=== PATIENT | male | born 1960 | race Caucasian/White ===

== ENCOUNTER 2022-04-04 07:30 | Outpatient (RCR) | payer BC, SELFPAY | END 2022-09-25 09:48 | disposition home or self-care (01) | PROVIDERS: Visit Provider Physician Assistant Surgical | DX: R26.9 Unspecified abnormalities of gait and mobility (principal); M79.605 Pain in left leg; Z51.89 Encounter for other specified aftercare | CPT/HCPCS: 97110; 97162 ==

== ENCOUNTER 2022-07-22 09:59 | Outpatient (CLI) | payer BC, SELFPAY | END 2022-07-22 10:00 | disposition home or self-care (01) | PROVIDERS: PCP Physician Assistant Surgical; Visit Provider Nurse Practitioner Family | DX: L89.894 Pressure ulcer of other site, stage 4 (principal); R26.9 Unspecified abnormalities of gait and mobility; E11.622 Type 2 diabetes mellitus with other skin ulcer | CPT/HCPCS: 11043; 99213 ==

== ENCOUNTER 2022-07-29 10:03 | Outpatient (CLI) | payer BC, SELFPAY ==
--- OUTSIDE RECORDS SUMMARY | 2022-07-29 10:42 | XMS_ITS | Encounter Summary ---
:1960 Author Organization [facility] Address [address] [place] [address] Care Team Providers Name Role Phone Elsewhere, Pcp Primary Care Provider Unavailable Reason for Visit Reason Comments Knee Injury Encounter Details Date Type Department Care Team Description 2022 Nurse Triage Department of [facility] Lesli Anguiano, Knee Injury Medicine in [facility] [address] [place] [address] Social History Tobacco Use Types Packs/Day Years Used Date Smoking Tobacco: Never Smokeless Tobacco: Never Alcohol Use Standard Drinks/Week Comments No 0 (1 standard drink = 0.6 oz pure alcoho l) Sex Assigned at Date Recorded Not on file documented as of this encounter Miscellaneous Notes Telephone Encounter - Lesli Anguiano, R.N. - 2022 4:50 PM CDT Chief Complaint / Reason for Call Patient is a 62 y.o. male calling regarding Knee Injury. Assessment Concern: Patient calling regarding L knee injury that occurred 1 day ago. Reports tripped, heard snap, unable to bear weight, rates pain 10 million. Patient stated fired [employer], unable to get ride toED as does not get along with neighbors. Declined calling 911. Patient asked me to recommend drinking 2L Reji Rm, that'll take away the pain. I highly recommended the patient did not do that andasked me why. I responded with I will never recommend drinking alcohol to cope with pain or any other issues. He stated that is not a good enough reason and ended call. Calling to request: advice The recommended disposition is Go to ED Now. Reason for Disposition Can't stand (bear weight) or walk Protocols used: Knee Ulnwrz-FCMLY-GR Care Advice Patient/Caregiver understands and will follow care advice?: Yes, able to teach back GO TO ED NOW: * You need to be seen in the Emergency Department. * Go to the ED at nearest Hospital. * Leave now. Drive carefully. NOTE TO TRIAGER - DRIVING: * Another adult should drive. * If there are any problems with automobile transport (e.g., unable to get to the car), then ambulance transport may be necessary. * The patient, caregiver, or family members can arrange ambulance transport via private ambulance company or via EMS 911. documented in this encounter Plan of Treatment Not on filedocumented as of this encounter Visit Diagnoses Not on filedocumented in this encounter Additional Health Concerns Assessment Noted Time PHQ-9 Depression Total Score: 18 02/14/2013 9:53 AM CD T documented as of this encounter Care Teams Rocket Engine Tester Relationship Specialty Start Date End Date Elsewhere, Pcp PCP - General Internal Medicine 06/21/22 documented as of this encounter
--- OUTSIDE RECORDS SUMMARY | 2022-07-29 10:42 | XMS_ITS | Encounter Summary ---
:1960 Author Organization [facility] Address [address] [place] [address] Care Team Providers Name Role Phone Cintia Cobb M.D. Primary Care Provider [phone] Reason for Visit Reason Comments Quality D5 Encounter Details Date Type Department Care Team Description 12/06/2021 Clinical Communication Department of [facility], [facility] D5 Medicine, Jose Daniel Piper M.D. [address] [address] [place], [place] [phone] (Work) [phone] Social History Tobacco Use Types Packs/Day Years Used Date Smoking Tobacco: Never Smokeless Tobacco: Never Alcohol Use Standard Drinks/Week Comments No 0 (1 standard drink = 0.6 oz pure alcoho l) Sex Assigned at Date Recorded Not on file documented as of this encounter Miscellaneous Notes Telephone Encounter - Preethi Wagner RAugustine - 12/06/2021 2:41 PM CDT In reviewing the patient's diabetic quality metrics, I have found that the patient is not meeting all of their goals. BP control not met. Patient being seen routinely in physical therapy. Orders are not entered. documented in this encounter Plan of Treatment Not on filedocumented as of this encounter Visit Diagnoses Not on filedocumented in this encounter Additional Health Concerns Assessment Noted Time PHQ-9 Depression Total Score: 18 02/14/2013 9:53 AM CD T documented as of this encounter Care Teams Bag Bailer Relationship Specialty Start Date End Date Cintia Cobb M.D. PCP - General 02/19/17 02/20/[address] [place] [phone] documented as of this encounter
--- OUTSIDE RECORDS SUMMARY | 2022-07-29 10:42 | XMS_ITS | Clinical Summary ---
:1960 Author Organization [facility] Address [address] [place] [address] Care Team Providers Name Role Phone Elsewhere, Pcp Primary Care Provider Unavailable Source Comments Patient records contain information from all sites at [facility]. For routine questions regarding patient records, call [phone] during business hours, M-F 8:00 AM - 5:00 PM Central Time. Record requests for emergency care only can be directed to [phone] at any time.[facility] Allergies Active Allergy Reactions Severity Noted Date Comments Ciprofloxacin Other (see comments), High 12/28/2009 Genit al swelling Swelling Haemophilus Influenzae GI intolerance 11/03/2016 Priyanka rrhea Influenza A (H5n1) Virus Diarrhea High 08/13/2021 Vaccine Monoval (18 Yr +) Medications Medication Sig Dispensed Refills Start Date End Date Status PEDIATRIC Take 4 tablets 0 11/12/2015 Acti ve MULTIVITAMIN NO.76 by mouth daily. (FLINTSTONES COMPLETE ORAL) calcium carbonate Chew 2 tablets 2 0 Active (TUMS) 500 mg (200 mg (two) times a calcium) chewable day. tablet loperamide (IMODIUM Take 2 mg by 0 Active A-D) 2 mg capsule mouth 4 (four) times a day as needed for diarrhea. acetaminophen Take 2 tablets 0 08/16/2019 Active (TYLENOL) 500 mg (1,000 mg total) tablet by mouth 3 (three) times a day as needed for pain. Do not exceed 4 g total per day from all sources next 2 weeks, and no more than 4 g per day total long-term blood sugar 1 test once a 100 each 11 11/08/2019 Act adin diagnostic (glucose week. Dx: E11.9, blood) strips brand per insurance preference lancets 1 each daily. 100 each 11 11/09/2019 Activ e Dx: E11.9. Brand per insurance coverage. blood-glucose meter 1 each daily. 1 1 each 0 11/09/2019 Active misc each daily. Dx: E11.9. Brand per insurance coverage. traZODone (DESYREL) Take 1-2 tablets 60 tablet 11 07/14/2021 Active 50 mg tablet (50-100 mg total) by mouth at bedtime as needed for sleep. finasteride (PROSCAR) Take 1 tablet (5 90 tablet 3 08/13/2021 08/13/2022 Active 5 mg tablet mg total) by mouth daily. allopurinoL Take 1 tablet 90 tablet 3 08/13/2021 Act adin (ZYLOPRIM) 300 mg (300 mg total) tablet by mouth daily. furosemide (LASIX) 40 TAKE ONE TABLET 90 tablet 3 09/20/2021 Active mg tablet BY MOUTH DAILY tamsulosin (FLOMAX) TAKE TWO 180 capsule 3 11/20/2021 Active 0.4 mg 24 hr capsule CAPSULES BY MOUTH (0.8MG) DAILY methocarbamoL 500 mg. 0 11/27/2021 Activ e (ROBAXIN) 500 mg tablet omeprazole (PriLOSEC) TAKE ONE CAPSULE 90 capsule 3 12/18/[address] capsule BY MOUTH ONCE DAILY BEFORE BREAKFAST cyclobenzaprine Take 10 mg by 0 12/23/2021 Active (FLEXERIL) 10 mg mouth 3 (three) tablet times a day as needed. ferrous sulfate 325 Take 1 tablet 90 tablet 3 01/01/2022 Active mg (65 mg iron) DR (65 mg of iron tablet total) by mouth daily. 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 Wart Genital 11/05/2015 Overview: onset unknown Flutter Atrial 11/22/2014 Tinea Pedis 02/02/2014 Overview: onset unknown Eczema 01/25/2014 Overview: onset unknown Hyperlipidemia On Treatment 02/08/2013 Intertrigo 07/14/2012 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 Benign Prostatic Hyperplasia Without Obstruction 02/15 Overview: onset unknown Hypertension Essential Primary 12/28/2009 Overview: Hypertension essential, NOS 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 Overview: onset unknown Follow Up Examination Postoperative Visit Pain Shoulder Right Resolved Problems Problem Noted Date Resolved Date Diabetes Mellitus Type 2 Ulcer Foot 11/08/201912/06 Pressure Injury (Ulcer) Of Left Heel Stage 2 10/18/2019 12/19/2020 Diarrhea 08/13/2019 12/19/2020 Fracture Hip Intertrochanteric Closed Initial Left 9 12/19/2020 Overview: Added automatically from request for emiliano rossi [id number] Fracture Hip Closed Initial Left 08/12/2019 021 Hemorrhage Gastrointestinal 04/12/2018 12/19/2020 Wound Toe Without Damage To Nail Open Subsequent 01/08/2018 12/19/2020 Morbid Obesity Body Mass Index Greater Than Or Equal To 40 0 12/13/2014 11/25/2017 Adult Diabetes Mellitus Type 2 07/14/2013 08/14/2019 Encounters Date Type Specialty Care Team Description 2022 Nurse Triage Community Internal Soni Benjamin M edical Information Medicine R.N. 2022 Nurse Triage Family Medicine Lesli Anguiano, Knee Injury R.N. 06/21/2022 Emergency Emergency Medicine Billy [facility] (Primary Dx) from Last 3 Months Immunizations Name Administration Dates Next Due DT, Pediatric 12/05/2002 Influenza, Seasonal, Injectable 07/13/2008, 08/09/2007, 07/10 PPSV23 12/05/2002 Tdap 02/19/2012 Family History Medical History Relation Name Comments Heart failure Father Hypertension Father Diabetes Mother Heart attack Mother Kidney disease Mother Relation Name Status Comments Father Mother Social History Tobacco Use Types Packs/Day Years Used Date Smoking Tobacco: Never Smokeless Tobacco: Never Tobacco Cessation: Counseling Given: No Alcohol Use Standard Drinks/Week Comments No 0 (1 standard drink = 0.6 oz pure alcoho l) Sex Assigned at Date Recorded Not on file Last Filed Vital Signs Vital Sign Reading Time Taken Comments Blood Pressure 136/73 06/21/2022 9:22 AM CDT Pulse 67 06/21/2022 10:15 AM CDT Temperature 36.9 ??C (98.4 ??F) 06/21/2022 9:22 AM CDT Respiratory Rate 18 06/21/2022 11:00 AM CDT Oxygen Saturation 99% 06/21/2022 10:15 AM CDT Inhaled Oxygen Concentration - - Weight 81 kg (178 lb 9.2 oz) 09/30/2021 8:25 AM CROSS TIE TRAM LOADER Height 180.3 cm (5' 11) 06/21/2022 9:24 AM CDT Body Mass Index 24.22 08/12/2019 12:43 PM CROSS TIE TRAM LOADER Plan of Treatment Health Maintenance Due Date Last Done Comments CT Colonography 1960 Cologuard 1960 Colonoscopy 1960 HIV Screening 1960 Hepatitis C Screening 1960 COVID-19 Vaccine (#1) 1960 Pneumococcal vaccine (0-64 years) 12/06/2003 12/05/2002 (2 - PCV) Zoster Vaccines (1 of 2) 2008 Colorectal Cancer Screening 2014 FIT 2014 2013 Diabetic Office Visit with Foot 10/19/2014 10/19/2013 Exam Urine Albumin 10/03/2015 10/03/2014, 07/11/2013, 11/18/2012, Additional history exists Dilated Eye Exam 11/20/2017 11/20/2016 (Performed elsewhere), 10/11/2015 Hepatitis B Vaccines (1 of 3 - 2018 Risk 3-dose series) Depression Screening (Annual 09/07/2021 PHQ-2) DTaP,Tdap,and Td Vaccines (3 - Td 02/18/2022 02/19/2012, or Tdap) Influenza Vaccine (#1) 2022 07/13/2008, 07/13/2008, 08/09/2007, Additional history exists Hemoglobin A1C 07/02/2022 12/31/2021, 12/18/2020, 08/12/2019, Additional history exists Creatinine Level 09/30/2022 09/30/2021, 12/18/2020, 08/12/2019, Additional history exists Potassium Level 09/30/2022 09/30/2021, 12/18/2020, 08/12/2019, Additional history exists Sodium Level 09/30/2022 09/30/2021, 12/18/2020, 08/12/2019, Additional history exists Office Visit for Blood Pressure 12/31/2022 12/31/2021 Check / Re-check Lipid (Cholesterol) Screening 06/03/2023 06/03/2022, 2021, 12/18/2020, Additional history exists Medical Devices Implanted Type Area Biofuels Engineering Manager Device Shelf Model / Identifier Expiration Serial / Date Lot Lead 4076-52 Capsurefix Novus - Patel [id number] Cardiac Lead Heart Me dtronic / Implanted: Qty: 1 on 01/19/2017 [id number] / Description: Device Biofuels Engineering Manager - [employer] Body Location - Other. Right Atrial. Device Status Text - CARD LEAD-1 [id number]. Clip Device Hemostatic 235 - [id number] Hardware e.g. N/A: Success [id number] 01/12/2021 [id number] / Implanted: Qty: 1 on 04/13/2018 by Rene Skinner M.D. at [facility] pins/screws/rods [employer] / [id number] Description: Resolution clip Scrw Lck Mariano Ti T25 5x38 - [id number] Hardware e.g. Left: Hip Depuy Synthes [id number] / Implanted: Qty: 1 on 08/13/2019 by John Sebastian M.D. at [facility] pins/screws/rods / Pacemaker Cuhy Toribio L101 - Patel [id number] Pacemaker Other/Legacy - Caleb ton / Implanted: Qty: 1 on 01/19/2017 See Implant Scientific [id number] / Description Description: Device Biofuels Engineering Manager - [email or web address]. Body Location - Other. Left. Device Status Text - [id number]. Procedures Procedure Name Priority Date/Time Associated Comments Diagnosis DX KNEE LEFT 4+ RAD - Semiurgent 06/21/2022 9:22 Resul ts for this VIEWS (Fast; most ED AM CDT procedure are in patients; some the results inpatients) section. from Last 3 Months Results DX Knee Left 4+ Views (06/21/2022 9:22 AM CDT) Anatomical Region Laterality Modality Lower Extremity, Knee, Musculoskeletal RST LOS, Left Digital Radiography Musculoskeletal ARZ LOS, Muskuloskeletal FLA LOS Specimen (Source) Anatomical Collection Method Collection Time Re ceived Time Location / / Volume Laterality 06/21/2022 9:25 AM CDT Impressions 06/21/2022 9:28 AM CDT 1. Moderate left knee joint effusion. 2. No acute fracture or dislocation. 3. Diffuse bony demineralization. 4. Status post ORIF of previous distal l eft femoral metaphyseal fracture which appears healed with mild residual deformity. Narrative 06/21/2022 9:28 AM CDT EXAM: DX KNEE LEFT 4+ VIEWS COMPARISON: 09/30/2021 FINDINGS: Moderate left knee joint effus ion. Diffuse bony demineralization. No acute fracture or dislocation. Status post ORIF of previou sly seen comminuted displaced fracture of distal left femoral metaphysis with intramedullary r od, long compression plate and multiple screws bridging the fracture site. The fracture appears heal ed with significantly improved alignment and mild residual deformity. Arterial calcification. Procedure Note Yissel Conner M.D. - 06/21/2022Format ting of this note might be different from the original. EXAM: DX KNEE LEFT 4+ VIEWS COMPARISON: 09/30/2021 FINDINGS: Moderate left knee joint effus ion. Diffuse bony demineralization. No acute fracture or dislocation. Status post ORIF of previou sly seen comminuted displaced fracture of distal left femoral metaphysis with intramedullary r od, long compression plate and multiple screws bridging the fracture site. The fracture appears heal ed with significantly improved alignment and mild residual deformity. Arterial calcification. IMPRESSION: 1. Moderate left knee joint effusion. 2. No acute fracture or dislocation. 3. Diffuse bony demineralization. 4. Status post ORIF of previous distal l eft femoral metaphyseal fracture which appears healed with mild residual deformity. Billy Camacho P.A.-C. IMG DIAGNOSTIC IMAGING P ROCEDURES from Last 3 Months Insurance Payer Benefit Plan Subscriber ID Effective Phone Address Typ e / Group Dates BLUE CROSS BCBS BLUE [id number] 2018-Prese ATTN: Angélica contreras HMO BLUE SHIELD PLUS HMO nt CONSUMER [facility] [place] [address] [address] [place] [address] Advance Directives For more information, please contact: [phone] Documents on File Type Date Recorded Patient Secretary Book Keeper Explanati on Advance Directives 11/17/2016 12:00 AM [employer] doc ument. See document viewer. Advance Directives 09/19/2016 12:00 AM [employer] doc ument. See document viewer. Latest Code Status on File Code Status Date Activated Date Inactivated Comments DNR/DNI 08/13/2019 12:27 PM 08/16/2019 2:18 PM Code Status History Code Status Date Activated Date Inactivated Comments Full Code 08/13/2019 9:42 AM 08/13/2019 12:27 PM Question Answer Comments Full Code: Discussed DNR/DNI 08/12/2019 2:14 PM 08/13/2019 9:42 AM DNR/DNI 04/12/2018 4:16 PM 04/15/2018 9:11 PM Care Teams Cloth Measurer Machine Relationship Specialty Start Date End Date Elsewhere, Pcp PCP - General Internal Medicine 06/21/22
--- OUTSIDE RECORDS SUMMARY | 2022-07-29 10:42 | XMS_ITS | Encounter Summary ---
:1960 Author Organization [facility] Address [address] [place] [address] Care Team Providers Name Role Phone Cintia Cobb M.D. Primary Care Provider Encounter Details Date Type Department Care Team Description 01/01/2022 Clinical Communication Department of [facility], Jose Daniel Piper M.D. [address] [address] [place], [place] [phone] (Work) [phone] Social History Tobacco Use Types Packs/Day Years Used Date Smoking Tobacco: Never Smokeless Tobacco: Never Alcohol Use Standard Drinks/Week Comments No 0 (1 standard drink = 0.6 oz pure alcoho l) Sex Assigned at Date Recorded Not on file documented as of this encounter Miscellaneous Notes Telephone Encounter - Viviana Borja - 01/01/2022 3:05 PM CDT Thank you for your request, records will be sent by our processors. Release of information Telephone Encounter - Cintia Cobb M.D. - 01/01/2022 10:58 AM CDT Please fax recent preop physical exam and any other pertinent labs/imaging/cardiology evaluation: Due Date/Date of Appointment: 01/27/22 Location of Appointment/Surgery: [facility] Provider name or Department: Cesar Scherer MD, [facility] Address: [address] [place] [address] documented in this encounter Plan of Treatment Not on filedocumented as of this encounter Visit Diagnoses Not on filedocumented in this encounter Additional Health Concerns Assessment Noted Time PHQ-9 Depression Total Score: 18 02/14/2013 9:53 AM CD T documented as of this encounter Care Teams Cream Cheese Maker Relationship Specialty Start Date End Date Cintia Cobb M.D. PCP - General 02/19/17 02/20/[id number] [place] [phone] documented as of this encounter
--- OUTSIDE RECORDS SUMMARY | 2022-07-29 10:42 | XMS_ITS | Encounter Summary ---
:1960 Author Organization [facility] Address [address] [place] [address] Care Team Providers Name Role Phone Cintia Cobb M.D. Primary Care Provider [phone] Reason for Referral Outpatient (Routine) - Authorized Specialty Diagnoses / Procedures Referred By Contact Refer red To Contact Family Medicine Cintia Cobb SE, M.D. [address] [place] [phone] Referral ID Status Reason Start Date Expiration Date Visits V isits Requested Authorized [id number] Authorized 01/01/2022 01/01/2023 1 1 utpatient (Routine) - Authorized Specialty Diagnoses / Procedures Referred By Contact Fatuma almodovar To Contact Diagnoses Preoperative Exam Cintia Cobb SE Procedures ECG 12 Lead Keely Piper [address] [place] [phone] Referral ID Status Reason Start Date Expiration Date Visits V isits Requested Authorized [id number] Authorized 12/31/2021 12/31/2022 1 1 Reason for Visit Reason Comments Follow-up D5 Outpatient (Routine) - Closed Specialty Diagnoses / Procedures Referred By Contact Refer red To Contact Family Medicine [facility] DREW Piper M.D. [address] [place] [address] D[place] [phone] Referral ID Status Reason Start Date Expiration Date Visits Requ ested Visits Authorized [id number] Closed 08/13/2021 08/13/2022 1 1 Encounter Details Date Type Department Care Team Description 12/31/2021 Office Visit Department of Family Tigist Cobb reoperative Exam (Primary Dx); Medicine, Jose Daniel Piper M.D. 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; [facility], in [address] [place] [address] Diabetes Mellitus Type 2 With Diabetic Neuropathy (HCC); [facility] Gastric Bypass Status Post; [place] Jose Daniel Dean [place] Anemia Microcytic; [address] [place] [phone] Wound Lower Leg Open Initial Right; DREW CONDON [phone] Flutter Atr ial (HCC); [phone] (Work) Pacemaker Cardiac Status Post; [phone] Benign Pr ostatic Hyperplasia Without Obstruction; Screening [facility] Prostate Cancer Social History Tobacco Use Types Packs/Day Years Used Date Smoking Tobacco: Never Smokeless Tobacco: Never Alcohol Use Standard Drinks/Week Comments No 0 (1 standard drink = 0.6 oz pure alcoho l) Sex Assigned at Date Recorded Not on file documented as of this encounter Last Filed Vital Signs Vital Sign Reading Time Taken Comments Blood Pressure 139/80 12/31/2021 7:00 PM CDT Pulse 92 12/31/2021 6:32 PM CDT Temperature 37.3 ??C (99.1 ??F) 12/31/2021 6:32 PM CDT Respiratory Rate - - Oxygen Saturation 97% 12/31/2021 6:32 PM CDT Inhaled Oxygen Concentration - - Weight - - Height - - Body Mass Index - - documented in this encounter H&P Notes Cintia Cobb M.D. - 12/31/2021 6:00 PM CDT SUBJECTIVE CHIEF COMPLAINT / REASON FOR VISIT Ed Cuauhtemoc Luna is a 61 y.o. male who presents for evaluation of Follow-up (D5 ). HISTORY OF PRESENT ILLNESS Ed will be undergoing a spine surgery with [facility], Dr. Cesar Scherer at [facility] in [facility] on January 27. He has never had any trouble with anesthesia. No history of blood clots. Denies any current black or bloody stools. He has chronic iron deficiency anemia in the setting of a gastric bypass surgery. Hemoglobin is typically around eat. He did require a blood transfusion following an emergent ORIF to his left femur following a fracture earlier this year. He hasa history of atrial flutter with complete heart block and has a pacemaker in place. He reports chestpain since having this pacemaker implanted. He denies any shortness of breath. He reports his back pain has been progressing and it is hard to control his bladder at times. He had 1 day where it was hard to control his bowels. He has left leg pain with occasional numbness. The left leg wants to buckleon him. He has been seeing the wound care nurse at [facility] and states that this has been healingwell. He sees them weekly on Thursday and his does dressing changes Thursday and Thursday. Patient checks his blood sugars occasionally with numbers typically around 90. His diabetes has essentialy resolved since losing weight with his gastric bypass surgery. He denies any recent heartburn. Current Outpatient Medications Medication Sig ??? acetaminophen (TYLENOL) 500 mg tablet Take 2 tablets (1,000 mg total) by mouth 3 (three) times aday as needed for pain. Do not exceed 4 g total per day from all sources next 2 weeks, and no more than 4 g per day total long-term ??? allopurinoL (ZYLOPRIM) 300 mg tablet Take 1 tablet (300 mg total) by mouth daily. ??? blood sugar diagnostic (glucose blood) strips 1 test once a week. Dx: E11.9, brand per insurancepreference ??? blood-glucose meter misc 1 each daily. 1 each daily. Dx: E11.9. Brand per insurance coverage. ??? calcium carbonate (TUMS) 500 mg (200 mg calcium) chewable tablet Chew 2 tablets 2 (two) times a day. ??? cyclobenzaprine (FLEXERIL) 10 mg tablet Take 10 mg by mouth 3 (three) times a day as needed. ??? finasteride (PROSCAR) 5 mg tablet Take 1 tablet (5 mg total) by mouth daily. ??? furosemide (LASIX) 40 mg tablet TAKE ONE TABLET BY MOUTH DAILY ??? lancets 1 each daily. Dx: E11.9. Brand per insurance coverage. ??? loperamide (IMODIUM A-D) 2 mg capsule Take 2 mg by mouth 4 (four) times a day as needed for diarrhea. ??? methocarbamoL (ROBAXIN) 500 mg tablet 500 mg. ??? omeprazole (PriLOSEC) [address] capsule TAKE ONE CAPSULE BY MOUTH ONCE DAILY BEFORE BREAKFAST ??? PEDIATRIC MULTIVITAMIN NO.76 (FLINTSTONES COMPLETE ORAL) Take 4 tablets by mouth daily. ??? tamsulosin (FLOMAX) 0.4 mg 24 hr capsule TAKE TWO CAPSULES BY MOUTH (0.8MG) DAILY ??? traZODone (DESYREL) 50 mg tablet Take 1-2 tablets (50-100 mg total) by mouth at bedtime as needed for sleep. The patient's allergies, problem list and medical history portions of the patient's history were reviewed and updated as appropriate. REVIEW OF SYSTEMS Constitutional: Negative for fatigue, fever, weight gain of more than 10 pounds and weight loss of more than 10 pounds. Skin: Negative for change in mole or skin spot. Eyes: Negative for visual problems. ENT: Negative for difficulty hearing and sinus congestion. Respiratory: Negative for coughing up mucus (phlegm), dry cough, dyspnea, sleep disturbances due to breathing and wheezing. Cardiovascular: Positive for chest pain, pressure or tightness. Negative for rapid or fluttering heart beat. Gastrointestinal: Negative for abdominal (belly) pain or cramping, blood in stool, constipation, diarrhea, heartburn, nausea and vomiting. Genitourinary: Positive for incontinence. Negative for difficulty urinating, pain with urination andurgency. Musculoskeletal: Positive for arthralgias, back pain and pain or stiffness in the joints. Negative for joint swelling and muscle pain/stiffness. Neurological: Positive for numbness or shooting pain in hands, arms, legs, or feet, loss of balance or tendency to fall easily and weakness in arms or legs. Negative for headaches. Psychiatric/Behavioral: Negative for snores loudly, stop breathing, choking, or gasping while asleepand sleep disturbance. OBJECTIVE VITAL SIGNS Blood pressure 139/80, pulse 92, temperature 37.3 ??C, temperature source Temporal, SpO2 97 %. PHYSICAL EXAMINATION Constitutional General: He is not in acute distress. Appearance: He is well-developed. HENT Head: Normocephalic and atraumatic. Right Ear: Tympanic membrane, ear canal and external ear normal. Left Ear: Tympanic membrane, ear canal and external ear normal. Nose: Nose normal. Eyes Extraocular Movements: Extraocular movements intact. Conjunctiva/sclera: Conjunctivae normal. Pupils: Pupils are equal, round, and reactive to light. Neck Thyroid: No thyromegaly. Vascular: No carotid bruit. Cardiovascular Rate and Rhythm: Normal rate and regular rhythm. Heart sounds: Normal heart sounds. No murmur heard. No gallop. Pulmonary Effort: Pulmonary effort is normal. Breath sounds: Normal breath sounds. Abdominal General: Bowel sounds are normal. Palpations: Abdomen is soft. There is no mass. Tenderness: There is no abdominal tenderness. There is no guarding or rebound. Musculoskeletal Cervical back: Normal range of motion and neck supple. Right lower leg: No edema. Left lower leg: No edema. Comments: Right lower leg is wrapped with Felix bandages. Lymphadenopathy Cervical: No cervical adenopathy. Skin General: Skin is warm. Neurological General: No focal deficit present. Mental Status: He is alert and oriented to person, place, and time. Cranial Nerves: No cranial nerve deficit. Psychiatric Mood and Affect: Mood normal. 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 History of Heart disease: Atrial flutter and complete heart block s/p pacemaker placement 2016 History of Lung disease: None Stop Bang Score: Stop Bang Total Score: 2 Other risk factors: Chronic anemia with baseline hemoglobin ~8 s/p gastric bypass surgery 2014 Patient is very opinionated regarding his care and will readily refuse any tests, treatments or interventions that he does not think are necessary, to the point of becoming belligerent. He is having worrisome symptoms of urinary incontinence and progressive bowel troubles. He denies any saddle paresthesias. Discussed reasons to seek emergency care prior to his procedure on January 27. Preoperative instructions discussed and understanding indicated: 1. Follow all preop hospital/center instructions. 2. IF TAKING ASPIRIN/NSAIDs: Stop aspirin/NSAIDs 1 week before procedure and resume 1 day after the procedure unless instructed otherwise 3. IF TAKING ANY ANTICOAGULANTS: Stop other anticoagulants per instructions of hospital/center or, if no instructions provided, stop anticoagulants 5 days before procedure and resume 1 day after the procedure unless instructed otherwise 4. IF TAKING ORAL DIABETES MEDS: Hold on the day of the procedure and resume 1 day after the procedure unless instructed otherwise 5. IF TAKING FELIX INHIBITOR OR ARB (LISINOPRIL OR LOSARTAN): Hold FELIX inhibitor/ARB/diuretic on the day of the procedure and resume 1 day after the procedure unless instructed otherwise 6. IF TAKING INSULIN: Hold short acting insulin on the day of the procedure and resume once eating. Take half of normal basal insulin dose prior to surgery. #3 Diabetes Mellitus Type 2 With Diabetic Neuropathy (HCC) A1c is in the normal range at 5.4%. Patient does not take any diabetic meds. He does try to follow ahealthy diet. #4 Gastric Bypass Status Post #5 Anemia Microcytic Patient has persistent iron deficiency anemia and hemoglobin is in the range of his baseline which is 8. He did require a blood transfusion within the past few months following an emergency surgery. Iron infusions have been offered but patient declines. Postoperative hemoglobin will need to be closelymonitored. He will continue with his multivitamin and B12 injections and we will initiate an oral iron supplement. #6 Wound Lower Leg Open Initial Right Patient is working with the wound care clinic through [facility]. There has been significant improvement in his wound. Hopefully it will be healed by the time of surgery. They do state that there were some vascular abnormalities, potentially varicose veins, on ultrasound for which [facility] has [facility]. #7 Flutter Atrial (HCC) #8 Pacemaker Cardiac Status Post Pacemaker placed in 2017 which patient is still upset about. EKG shows a paced rhythm. Patient is not anticoagulated. #9 Benign Prostatic Hyperplasia Without Obstruction #10 Screening Examination Prostate Cancer Continue on Flomax and finasteride. PSA obtained and pending. Plan was discussed with patient and is in agreement with plan. All questions were answered, side effects of any/all new medications were discussed. Patient left in no acute distress. Cintia Copeland M.D. documented in this encounter Plan of Treatment Scheduled Orders Name Type Priority Associated Diagnoses Order S [facility] Basic Metabolic Panel Lab Routine Preoperative Exam E xpected: 12/31/2021, Expires: 2022 Hemoglobin A1c Lab Routine Diabetes Mellitus Type 2 E xpected: 07/03/2022 With Diabetic Neuropathy (Ap proximate), (HCC) Expires: 2022 Hemoglobin Lab Routine Anemia Microcytic Expected: 07/03/2022 (Approximate), Expires: 2022 Scheduled Referrals Name Type Priority Associated Diagnoses Order S [facility] Family Medicine Outpatient Referral Routine Expec ti: office visit 07/03/2022 (clinic) (Approximate), Expires: 04/02/2023 documented as of this encounter Procedures Procedure Name Priority Date/Time Associated Diagnosis Comme nts LIPID PANEL, S Routine 12/31/2021 7:28 PM Diabetes Mellitus Re sults for this CDT Type 2 With Diabetic procedu re are in Neuropathy (HCC) the results section. PROSTATE-SPECIFIC Routine 12/31/2021 7:28 PM Screening Examina tion Results for this AG (PSA) SCRN, S CDT Prostate Cancer procedur e are in the results section. HEMOGLOBIN A1C, B Routine 12/31/2021 7:28 PM Diabetes Mellitus Results for this CDT Type 2 With Diabetic procedu re are in Neuropathy (HCC) the results section. CBC WITHOUT Routine 12/31/2021 7:22 PM Anemia Microcytic Resu lts for this DIFFERENTIAL, B CDT procedure ar e in the results section. ECG Routine 12/31/2021 7:16 PM Preoperative Exam Resu lts for this CDT procedure are i n the results section. documented in this encounter Results Hemoglobin A1c (12/31/2021 7:28 PM CDT) athologist Signature Hemoglobin A1c, 5.4 4.2 - 5.6 12/31/2021 CNFL B % 7:48 PM CDT Specimen Anatomical Collection Method Collection Time Receive d Time (Source) Location / / Volume Laterality Blood (Blood, 12/31/2021 7:28 PM 01/01/20 7:32 Venous) CDT PM CDT Cintia Copeland M.D. LAB BLOOD ADD-ON Performing Organization Address City/State/[facility] Code Phon e Number [address] [address] [place] [address] System [address] Lipid Panel (12/31/2021 7:28 PM CDT) athologist Signature Cholesterol, 114 mg/dL 12/31/2021 CNFL Total 7:54 PM CDT Comment: ----REFERENCE VALUE---- Desirable: < 200 Borderline high: 200 - 239 High: > or = 240 Triglycerides 103 mg/dL 12/31/2021 7:54 PM CDT CNF L Comment: ----REFERENCE VALUE---- Normal: <150 Borderline high: 150-199 High: 200-499 Very high: > or =500 Cholesterol, HDL 51 >=40 mg/dL 12/31/2021 7:54 PM CDT CNFL Calculated LDL 42 mg/dL 12/31/2021 7:54 PM CDT CN FL Comment: ----REFERENCE VALUE---- Desirable: <100 mg/dL Above Desirable: 100-129 mg/dL Borderline High: 130-159 mg/dL High: 160-189 mg/dL Very High: >=190 mg/dL Cholesterol, Non-HDL, Calculated 63 mg/dL 022 7:54 PM CDT CNFL Comment: ----REFERENCE VALUE---- Desirable: <130 Above Desirable: 130-159 Borderline high: 160-189 High: 190-219 Very high: > or =220 Specimen Anatomical Collection Method Collection Time Receive d Time (Source) Location / / Volume Laterality Blood (Blood, 12/31/2021 7:28 PM 01/01/20 22 7:32 Venous) CDT PM CDT Cintia Copeland M.D. LAB BLOOD ADD-ON Performing Organization Address City/[facility]/ZIP Code Phon e Number [facility]- [address] [place] [address] [place] [address] [place] [address] System in [place] [address] [address] PSA (Prostate-Specific Antigen) Screen (12/31/2021 7:28 PM CDT) athologist Signature Prostate-Specif 0.92 <=4.5 ng/mL 01/01/2022 RDW ic Ag 1:39 PM CDT Comment: ----ADDITIONAL INFORMATION---- The testing method is an electrochemilum inescence assay manufactured by [email or web address] and performed on the Modular or Arslan system . Values obtained with different assay met hods or kits may be different and cannot be used inte rchangeably. Test results cannot be interpreted as ab solute evidence for the presence or absence of malignant disease. Specimen Anatomical Collection Method Collection Time Receive d Time (Source) Location / / Volume Laterality Blood (Blood, 12/31/2021 7:28 PM 01/02/20 22 Venous) CDT 12:50 PM CDT Cintia Copeland M.D. LAB BLOOD ADD-ON Performing Organization Address City/State/ZIP Code Phon e Number [facility]- [address] [place], [place] [address] [facility] [place] [address] System in [place] [address] (ABNORMAL) CBC without Differential (12/31/2021 7:22 PM CDT) Patholo gist Method Time Signature Hemoglobin 7.6 (L) 13.2 - 12/31/2021 CNFL 16.6 g/dL 8:48 PM CDT Hematocrit 26.5 (L) 38.3 - 12/31/2021 CNFL 48.6 % 8:48 PM CDT Erythrocytes 3.34 (L) 4.35 - 12/31/2021 CNFL 5.65 8:48 PM CDT x10(12)/L MCV 79.3 78.2 - 12/31/2021 CNFL 97.9 fL 8:48 PM CDT RBC Distrib Width 16.9 (H) 11.8 - 12/31/2021 CNFL 14.5 % 8:48 PM CDT Platelet Count 228 135 - 317 12/31/2021 CNFL x10(9)/L 8:48 PM CDT Leukocytes 5.6 3.4 - 9.6 12/31/2021 CNFL x10(9)/L 8:48 PM CDT Specimen Anatomical Collection Method Collection Time Receive d Time (Source) Location / / Volume Laterality Blood (Blood, 12/31/2021 7:22 PM 01/01/20 22 8:22 Venous) CDT PM CDT Cintia Copeland M.D. LAB BLOOD ADD-ON Performing Organization Address City/State/ZIP Code Phon e Number [address] [address] [place] [address] System [address] ECG 12 Lead (12/31/2021 7:16 PM CDT) P athologist Signature Ventricular Rate 81 BPM MUSE ECG/Min IA Interval 172 ms MUSE QRSD Interval 172 ms MUSE QT Interval 400 ms MUSE QTC Interval 465 ms MUSE P [place] 37 degrees MUSE R [place] 269 degrees MUSE T Wave [place] 83 degrees MUSE Specimen Anatomical Collection Method Collection Time Receive d Time (Source) Location / / Volume Laterality 12/31/2021 7:16 PM 7:19 CDT PM CDT Impressions MUSE - 12/31/2021 7:19 PM CDT Dual chamber electronic pacemaker Sinus rhythm When compared with ECG of 30-SEP-2021 10 :45, No significant change was found Reviewed by KARINA Levy Narrative This result has an attachment that is no t available. Procedure Note Kaiser Skaggs Jr., M.D. - 12/31/2021For matting of this note might be different from the original. IMPRESSION: Dual chamber electronic pacemaker Sinus rhythm When compared with ECG of 30-SEP-2021 10 :45, No significant change was found Reviewed by KARINA Levy Cintia Copeland M.D. ECG ORDERABLES Performing Organization Address City/State/ZIP Code Phon e Number MUSE MUSE NA documented in this encounter Visit Diagnoses Diagnosis Preoperative Exam - Primary 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 Diabetes Mellitus Type 2 With Diabetic N europathy (HCC) Gastric Bypass Status Post Anemia Microcytic Wound Lower Leg Open Initial Right Flutter Atrial (HCC) Pacemaker Cardiac Status Post Benign Prostatic Hyperplasia Without Obs truction Screening Examination Prostate Cancer documented in this encounter Additional Health Concerns Assessment Noted Time PHQ-9 Depression Total Score: 18 02/14/2013 9:53 AM CD T documented as of this encounter Care Teams Scientist Propagator Relationship Specialty Start Date End Date Cintia Cobb M.D. PCP - General 02/19/17 02/20/[address] [place] [phone] documented as of this encounter
--- OUTSIDE RECORDS SUMMARY | 2022-07-29 10:42 | XMS_ITS | Encounter Summary ---
:1960 Author Organization [facility] Address [address] [place] [address] Care Team Providers Name Role Phone Elsewhere, Pcp Primary Care Provider Unavailable Reason for Visit Reason Comments Medical Information Encounter Details Date Type Department Care Team Description 2022 Nurse Triage Division of [facility] Soni [facility] Internal Medicine, Angélica, R.NPili [facility] in [address] [place], [place] [address] [place] [phone] [place] [address] Social History Tobacco Use Types Packs/Day Years Used Date Smoking Tobacco: Never Smokeless Tobacco: Never Alcohol Use Standard Drinks/Week Comments No 0 (1 standard drink = 0.6 oz pure alcoho l) Sex Assigned at Date Recorded Not on file documented as of this encounter Miscellaneous Notes Telephone Encounter - Soni Benjamin R.N. - 2022 4:59 PM CDT Patient calls and states I fired [place] but was taken by ambulance to [place] and need to know if I need to ice this Patient was uncooperative and would not provide spelling of first and last name to triage nurse. Advised that triage would have to disconnect if patient could not cooperate and provide information. Patient yelled his first and last name at triage nurse. Explained that triage would needto disconnect. documented in this encounter Plan of Treatment Not on filedocumented as of this encounter Visit Diagnoses Not on filedocumented in this encounter Additional Health Concerns Assessment Noted Time PHQ-9 Depression Total Score: 18 02/14/2013 9:53 AM CD T documented as of this encounter Care Teams Margin Analyst Relationship Specialty Start Date End Date Elsewhere, Pcp PCP - General Internal Medicine 06/21/22 documented as of this encounter
--- OUTSIDE RECORDS SUMMARY | 2022-07-29 10:42 | XMS_ITS | Encounter Summary ---
:1960 Author Organization [facility] Address [address] [place] [address] Care Team Providers Name Role Phone Elsewhere, Pcp Primary Care Provider Unavailable Reason for Visit Reason Comments Fall Pt arrived via [facility] foll owing a fall at a farm site. Pt reported he landed on his knee. Encounter Details Date Type Department Care Team Description 06/21/2022 Emergency [facility] Billy Camacho ist[facility] F[facility] [place] Mary Carmen Munguia (Primary Dx) Emergency Department [id number] [place] [address] [place], [place] [phone] (Wo rk) [address] [phone] Social History Tobacco Use Types Packs/Day Years [...] Concentration - - Weight - - Height 180.3 cm (5' 11) 06/21/2022 9:24 AM CDT Body Mass Index - - documented in this encounter Discharge Instructions Discharge InstructionsBilly Camacho P.A.-C. - 06/21/2022 11:12 AM CDT You were seen in the Emergency Department for knee pain. If you have worsening symptoms you will need to return to the emergency room for further evaluation or to your primary care provider. Thank you for your patience today and we hope you feel better soon! documented in this encounter Medications at Time of Discharge Medication Sig Dispensed Refills Start Date End Date acetaminophen (TYLENOL) Take 2 tablets 0 08/16/20 19 500 mg tablet (1,000 mg total) by mouth 3 (three) times a day as needed for pain. Do not exceed 4 g total per day from all sources next 2 weeks, and no more than 4 g per day total long-term allopurinoL (ZYLOPRIM) Take 1 tablet (300 90 tablet 3 08/13 300 mg tablet mg total) by mouth daily. blood sugar diagnostic 1 test once a week. 100 each 11/2019 (glucose blood) strips Dx: E11.9, brand per insurance preference blood-glucose meter misc 1 each daily. 1 1 each 0 2019 each daily. Dx: E11.9. Brand per insurance coverage. calcium carbonate (TUMS) Chew 2 tablets 2 0 500 mg (200 mg calcium) (two) times a day. chewable tablet cyclobenzaprine Take 10 mg by mouth 0 12/23/2021 (FLEXERIL) 10 mg tablet 3 (three) times a day as needed. ferrous sulfate 325 mg Take 1 tablet (65 90 tablet 3 2021 (65 mg iron) DR tablet mg of iron total) by mouth daily. finasteride (PROSCAR) 5 Take 1 tablet (5 mg 90 tablet 3 03/202108/13/2022 mg tablet total) by mouth daily. furosemide (LASIX) 40 mg TAKE ONE TABLET BY 90 tablet 3 tablet MOUTH DAILY lancets 1 each daily. Dx: 100 each 11 11/09/2019 E11.9. Brand per insurance coverage. loperamide (IMODIUM A-D) Take 2 mg by mouth 0 2 mg capsule 4 (four) times a day as needed for diarrhea. methocarbamoL (ROBAXIN) 500 mg. 0 11/27/2021 500 mg tablet omeprazole (PriLOSEC) 20 TAKE ONE CAPSULE BY [address] capsule MOUTH ONCE DAILY BEFORE BREAKFAST PEDIATRIC MULTIVITAMIN Take 4 tablets by 0 2015 NO.76 (FLINTSTONES mouth daily. COMPLETE ORAL) tamsulosin (FLOMAX) 0.4 TAKE TWO CAPSULES 180 capsule 3 11/05 mg 24 hr capsule BY MOUTH (0.8MG) DAILY traZODone (DESYREL) 50 Take 1-2 tablets 60 tablet 11 021 mg tablet (50-100 mg total) by mouth at bedtime as needed for sleep. documented as of this encounter Progress Notes Lesli Go L.I.C.S.W. - 06/21/2022 11:25 AM CDT Progress Note - Care Coordination SUBJECTIVE Patient is a 61 year old man who presented to the [facility] emergency department earlier today after a reported fall at a local worksite. Picu Nurse was consulted by nursing staff to assist with providing a cab voucher to the patient. OBJECTIVE Past Medical History: Diagnosis Date Anemia Diabetes Mellitus NOS Allergies Allergen Reactions Ciprofloxacin Other (see comments) and Swelling Genital swelling Influenza A (H5n1) Virus Vaccine Monoval (18 Yr +) Diarrhea Haemophilus Influenzae GI intolerance Diarrhea ASSESSMENT / PLAN ASSESSMENT A formal assessment was not completed with the patient today. INTERVENTIONS Picu Nurse provided a cab voucher to the patient as requested and instructed him to call [facility] this service. Patient reported that his truck remains at [employer] in [place] and once he can get there he plans to return home. PLAN Patient discharged from the emergency department at this time with no further identified needs. Alexandre ValeraC.S.W. 06/21/22 documented in this encounter ED Notes Billy Camacho P.A.-C. - 06/21/2022 10:14 AM CDT SUBJECTIVE CHIEF COMPLAINT / REASON FOR VISIT: Fall (Pt arrived via [facility] following a fall at a farm site. Pt reported he landed on his knee.) HISTORY OF PRESENT ILLNESS Patient had a mechanical trip and fall landing on his left knee morning. He has had a nonspecified surgery to the left knee in the past. He has ongoing left knee pain. REVIEW OF SYSTEMS Constitutional: Negative for activity change, appetite change, chills, diaphoresis and fever. HENT: Negative for sore throat. Respiratory: Negative for cough, chest tightness and shortness of breath. Cardiovascular: Negative for chest pain and palpitations. Gastrointestinal: Negative for abdominal pain, blood in stool, constipation, diarrhea, nausea and vomiting. Endocrine: Negative for cold intolerance and heat intolerance. Genitourinary: Negative for inability to urinate and dysuria. Musculoskeletal: Positive for joint swelling and extremity pain. Negative for neck pain and neck stiffness. Neurological: Negative for headaches. Psychiatric/Behavioral: Negative for confusion. ALLERGIES / CONTRAINDICATIONS Reviewed in medical record. CURRENT MEDICATIONS Reviewed in medical record. MEDICAL HISTORY Past Medical History: Diagnosis Date ??? Anemia ??? Diabetes Mellitus NOS Patient Active Problem List Diagnosis Date Noted ??? Pain Shoulder Right ??? Follow Up Examination Postoperative Visit ??? Impaired Glucose Tolerance 08/14/2019 ??? Osteoporosis 08/14/2019 ??? Anemia Microcytic 08/13/2019 ??? Pain Joint 08/12/2019 ??? History Of Falling 04/21/2018 ??? Gastric Bypass Status Post 11/25/2017 ??? Diabetes Mellitus Type 2 With Diabetic Neuropathy (HCC) 07/01/2017 ??? Diabetes Mellitus Type 2 Peripheral Neuropathy (HCC) 07/01/2017 ??? 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 Pacemaker Cardiac Status Post 03/18/2017 ??? 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 Wart Genital 11/05/2015 ??? Flutter Atrial (HCC) 11/22/2014 ??? Tinea Pedis 02/02/2014 ??? Eczema 01/25/2014 ??? Hyperlipidemia On Treatment 02/08/2013 ??? Intertrigo 07/14/2012 ??? 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 Benign Prostatic Hyperplasia Without Obstruction 02/15/2010 ??? Hypertension Essential Primary 12/28/2009 ??? 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 BYPASS OF STOMACH N/A 11/19/2014 Gastric bypass ??? CARDIAC PACEMAKER PLACEMENT ??? CHONDRECTOMY OF SPINE N/A 02/19/1989 Discectomy ??? CYSTOSCOPY kidney stone ??? ESOPHAGOGASTRODUODENOSCOPY N/A 04/13/2018 Procedure: ESOPHAGOGASTRODUODENOSCOPY; Surgeon: Rene Carlson M.D.; Location: [facility] GI LAB ??? LAPAROSCOPIC ASSISTED - GASTRIC BYPASS N/A 11/21/2014 Laparoscopic assisted - Gastric bypass ??? OPEN REDUCTION INTERNAL FIXATION FEMUR Left 08/13/2019 Procedure: OPEN REDUCTION INTERNAL FIXATION LEFT FEMUR; Surgeon: John Norman M.D.; Location:[facility] OR ??? OTHER CONVERTED SHX (SEE COMMENT) N/A 01/19/2017 >Implantation of dual-chamber permanent pacemaker. ??? OTHER SURGICAL HISTORY cystoscopy ??? UPPER GASTROINTESTINAL ENDOSCOPY N/A 11/21/2014 Upper gastrointestinal endoscopy FAMILY HISTORY Reviewed in chart. SOCIAL HISTORY Social History Tobacco Use ??? Smoking status: Never ??? Smokeless tobacco: Never Substance Use Topics ??? Alcohol use: No Social History Substance and Sexual Activity Drug Use No OBJECTIVE INITIAL VITAL SIGNS: Initial Vitals [06/21/22 0922] Temperature Pulse Rate Heart Rate Resp Blood Pressure SpO2 36.9 ??C 62 -- -- 136/73 98 % Pain Score -- PHYSICAL EXAMINATION Constitutional: Nursing note and vitals reviewed. He appears not lethargic. HENT: Head: Atraumatic. No signs of injury. Mouth/Throat: Mucous membranes are moist. Eyes: EOM are normal. Pupils are equal, round, and reactive to light. Neck: Neck supple. Cardiovascular: Regular rhythm, S1 normal, S2 normal and normal heart sounds. Exam reveals no gallopand no friction rub. No murmur heard.Edema: no edema noted Pulmonary/Chest: Effort normal. There is normal air entry. No stridor. No tachypnea. No respiratory distress. He has no wheezes. He has no rhonchi. He has no rales. He exhibits no retraction. Abdominal: Soft. exhibits no distension and no mass. There is no abdominal tenderness. There is no rebound and no guarding. Musculoskeletal: General: No edema. Cervical back: Normal range of motion and neck supple. Comments: Mild swelling of the left knee without significant ecchymosis certainly no laceration. Neurological: Alert and oriented to person, place, and time. He is not disoriented. He exhibits normal muscle tone. Skin: Skin is warm and dry. He is not diaphoretic. Psychiatric: He has a normal mood and affect. Behavior is normal. Thought content normal. ED COURSE: Final Diagnoses: as of 06/21/22 1112 History Of Falling INTERVENTIONS: Medications - No data to display DIAGNOSTICS LABS: Labs Reviewed - No data to display ECG: RADIOLOGY: DX Knee Left 4+ Views Final Result 1. Moderate left knee joint effusion. 2. No acute fracture or dislocation. 3. Diffuse bony demineralization. 4. Status post ORIF of previous distal left femoral metaphyseal fracture which appears healed with mild residual deformity. ASSESSMENT / PLAN IMPRESSION AND PLAN Patient was seen in the emergency department after an accident and evaluated for injuries. Their evaluation did not show any evidence of acute fractures or dislocations, just a increased effusion left knee. I emphasized the importance of follow up with their primary care doctor as needed if they have continued pain, and that after an injury they may have worsening pain and stiffness over the next fewdays. They may try heating pads or ice for comfort as well as over the counter pain medications suchas ibuprofen or acetaminophen. They understand that if the pain changes, worsens or is not adequately controlled, they should return to the emergency department for additional workup. They may also have other injuries that were not evident at the time of the accident, and if they notice an injury thatwas not evaluated, they should follow up. I discussed the patient the use of ice and rest as well asnonsteroidal anti-inflammatories. He is taking Tylenol ibuprofen morning evening I have recommended he take mid day dose which he insists is possible due to his work schedule. I will leave that up to him.The patient's workup and evaluation during their Emergency Department stay was reviewed with the patient. He is comfortable going home based on our discussion with him. The signs/symptoms to prompt return to the Emergency Department were discussed with the patient and they expressed understanding. All questions were answered. DIAGNOSIS: Final diagnoses: None ED DISCHARGE MEDS: ED Prescriptions None Sage Camacho, Billy Foster P.A.-C. 06/21/22 1016 documented in this encounter Plan of Treatment Not on filedocumented as of this encounter Procedures Procedure Name Priority Date/Time Associated Comments Diagnosis DX KNEE LEFT 4+ RAD - Semiurgent 06/21/2022 9:22 Resul ts for this VIEWS (Fast; most ED AM CDT procedure are in patients; some the results inpatients) section. documented in this encounter Results DX Knee Left 4+ Views (06/21/2022 [...] Camacho P.A.-C. IMG DIAGNOSTIC IMAGING P ROCEDURES documented in this encounter Visit Diagnoses Diagnosis History Of Falling - Primary documented in this encounter Administered Medications Inactive Administered Medications - up to 3 most recent administrations Medication Order MAR Action Action Date Dose Rate Site ketorolac injection 15 mg Given 06/21/2022 11:22 AM CDT 15 mg Other (TORADOL) 15 mg, intramuscular, Once, On 06/21/22 at 1031, For 1 dose, Adult IV push rate: Over 15 seconds. Peds IV push rate: Over 1 minute. 60 mg dose only for IM, not recommended for IV. documented in this encounter Active and Recently Administered Medications Times are shown in CDT. Scheduled Medication Order 06/19/2022 06/20/2022 06/21/2022 ketorolac injection 15 mg (TORADOL) (COMPLETED) 1122 (Given - Provider: Emir Senior R.N.) 15 mg, intramuscular, Once, On Sat 06/21 at 1031, For 1 dose, Adult IV push rate: Over 15 seconds. Peds IV push rate: Over 1 minute. 60 mg dose only for IM, not recommended for IV. documented in this encounter Additional Health Concerns Assessment Noted Time PHQ-9 Depression Total Score: 18 02/14/2013 9:53 AM CD T documented as of this encounter Care Teams Business Analytics Intern Relationship Specialty Start Date End Date Elsewhere, Pcp PCP - General Internal Medicine 06/21/22 documented as of this encounter
--- OUTSIDE RECORDS SUMMARY | 2022-07-29 10:42 | XMS_ITS | Encounter Summary ---
:1960 Author Organization [facility] Address [address] [place] [address] Care Team Providers Name Role Phone Cintia Cobb M.D. Primary Care Provider [phone] Encounter Details Date Type Department Care Team Description 02/11/2022 Orders Only Department of [facility] Angélica Cobb Medicine, Jose Daniel [facility]per M.D[facility], [address] [address] [place], [place] [phone] (W ork) [address] [phone] Social History Tobacco Use Types Packs/Day Years Used Date Smoking Tobacco: Never Smokeless Tobacco: Never Alcohol Use Standard Drinks/Week Comments No 0 (1 standard drink = 0.6 oz pure alcoho l) Sex Assigned at Date Recorded Not on file documented as of this encounter Plan of Treatment Not on filedocumented as of this encounter Visit Diagnoses Not on filedocumented in this encounter Additional Health Concerns Assessment Noted Time PHQ-9 Depression Total Score: 18 02/14/2013 9:53 AM CD T documented as of this encounter Care Teams Tab Machine Operator Relationship Specialty Start Date End Date Cintia Cobb M.D. PCP - General 02/19/17 02/20/[address] [place] [phone] documented as of this encounter
--- OUTSIDE RECORDS SUMMARY | 2022-07-29 10:42 | XMS_ITS | Encounter Summary ---
:1960 Author Organization [facility] Address [address] [place] [address] Care Team Providers Name Role Phone Cintia Cobb M.D. Primary Care Provider [phone] Reason for Visit Physical Therapy (Routine) - Canceled Specialty Diagnoses / Procedures Referred By Contact Refer red To Contact Diagnoses Fracture Femur Lower Multiple Closed Initial Left (HCC) Nathen Burger M.D. [facility] Procedures PT Ongoing treatment [facility] [address] [address] Referral ID Status Reason Start Date Expiration Date Visits V isits Requested Authorized [id number] Canceled 10/22/2021 10/22/2022 40 40 Encounter Details Date Type Department Care Team Description 12/10/2021 Clinical Support Department of Gustavo Burger M.D. [address] [address] Fracture Femur Rehabilitation Lesli Dias, P.T. [address] [place] [phone] Lower Multiple Services in [place] Closed In itial [place], [place] ([facility]) [address] [place] [phone] Social History Tobacco Use Types Packs/Day Years Used Date Smoking Tobacco: Never Smokeless Tobacco: Never Alcohol Use Standard Drinks/Week Comments No 0 (1 standard drink = 0.6 oz pure alcoho l) Sex Assigned at Date Recorded Not on file documented as of this encounter Progress Notes Lesli Dias P.T. - 12/10/2021 10:45 AM CDT Physical Therapy Outpatient Treatment Note SUBJECTIVE Patient's Name: Laz Luna Referring Provider: Nathen Burger M.D. Visit Diagnosis: 1. Fracture Femur Lower Multiple Closed Initial Left (HCC) Payor: [employer] [facility] CARE / Plan: [place] BLUE PLUS HMO / Product Type: Medicaid HMO / No data recorded Epic Visit Count: 15 Patient comments: Patient has no new complaints. Contact monitoring: PPE used during therapy: Therapist was wearing the following PPE throughout entire session: surgicalmask Patient was wearing a mask during therapy session: yes Additional Staff Present During Session: no OBJECTIVE Pain: LBP, Left hip and knee pain TREATMENT Treatment today consisted of: Performed??the Toxic Attire-Fit Total body ergometer times 15??minutes at a level??3??resistance. ??Leg press??60#??3??x 15??reps.?Forward ups 2 x 10 reps each. Standing partial squats 2 x 10 reps each. Ambulated in the parallel bars without UE support, mild antalgic gait. SLS 2 x 30 seconds with 2 finger harley pport within the parallel bars. Home Exercise Program/Education: Supine Knee Extension Stretch on Towel Roll - 1 x daily - 7 x weekly - 3 sets - 10 reps Seated Hamstring Stretch with Chair - 1 x daily - 7 x weekly - 1 sets - 3 reps - 30 hold Long Sitting Calf Stretch with Strap - 1 x daily - 7 x weekly - 1 sets - 3 reps - 30 hold Supine Quad Set - 1 x daily - 7 x weekly - 3 sets - 10 reps Active Straight Leg Raise with Quad Set - 1 x daily - 7 x weekly - 3 sets - 10 reps Pt reports good compliance with his HEP. Assessment Clinical Impression: Tolerated treatment session well. Patient is demonstrating progress with gait and strength. Functional Goals and Timeframes: PT Goal #1: Patient will ambulate safely independently x 500 ft with an assistive device utilizing front wheel walker or straight cane with a nonantalgic gait pattern demonstrating heel to toe gait pattern. PT Goal #1 Date: 12/06/2021 PT Goal #2: Patient will negotiate a flight of steps with reciprocal gait pattern utilizing a singlehand rail. PT Goal #2 Date: 12/06/2021 PT Goal #3: Patient will demonstrate 0?? of knee extension to 120?? or greater of knee flexion. PT Goal #3 Date: 12/06/2021 PT Goal #4: Patient will demonstrate 10 consecutive straight leg raises without extension lag. PT Goal #4 Date: 12/06/2021 Plan Plan for next session: gait and strengthening Time Spent with Patient Therapeutic Interventions Gait Training (min): 5 min Therapeutic Exercise (min): 27 min Time Tracking Total Timed Units (min): 32 min Total Treatment Time (min): 32 min documented in this encounter Plan of Treatment Not on filedocumented as of this encounter Visit Diagnoses Diagnosis Fracture Femur Lower Multiple Closed Ini tial Left (HCC) documented in this encounter Additional Health Concerns Assessment Noted Time PHQ-9 Depression Total Score: 18 02/14/2013 9:53 AM CD T documented as of this encounter Care Teams High School Combination Teacher Relationship Specialty Start Date End Date Cintia Cobb M.D. PCP - General 02/19/17 02/20/[id number] [address] documented as of this encounter
--- OUTSIDE RECORDS SUMMARY | 2022-07-29 10:42 | XMS_ITS | Encounter Summary ---
:1960 Author Organization [facility] Address [address] [place] [address] Care Team Providers Name Role Phone Cintia Cobb M.D. Primary Care Provider [phone] Reason for Visit Physical Therapy (Routine) - Canceled Specialty Diagnoses / Procedures Referred By Contact Refer red To Contact Diagnoses Fracture Femur Lower Multiple Closed Initial Left (HCC) Nathen Burger M.D. [facility] Procedures PT Ongoing treatment [facility] [address] [address] Referral ID Status Reason Start Date Expiration Date Visits V isits Requested Authorized [id number] Canceled 10/22/2021 10/22/2022 40 40 Encounter Details Date Type Department Care Team Description 12/17/2021 Clinical Support Department of Gustavo Burger M.D. [address] [address] Fracture Femur Rehabilitation Lesli Dias, P.T. [address] [place] [phone] Lower Multiple Services in [place] Closed In itial [place], [place] ([facility]) [address] [place] [phone] Social History Tobacco Use Types Packs/Day Years Used Date Smoking Tobacco: Never Smokeless Tobacco: Never Alcohol Use Standard Drinks/Week Comments No 0 (1 standard drink = 0.6 oz pure alcoho l) Sex Assigned at Date Recorded Not on file documented as of this encounter Progress Notes Lesli Dias P.T. - 12/17/2021 10:00 AM CDT Physical Therapy Outpatient Treatment Note SUBJECTIVE Patient's Name: Laz Luna Referring Provider: Nathen Burger M.D. Visit Diagnosis: 1. Fracture Femur Lower Multiple Closed Initial Left (HCC) Payor: [employer] [facility] CARE / Plan: [facility] BLUE PLUS HMO / Product Type: Medicaid HMO / No data recorded Epic Visit Count: 18 Patient comments: patient reports increasing back pain with radicular symptoms. Patient reports a causes increased difficulty walking it difficulty with bladder control. Patient has reported this to his providers. Patient reports they are waiting back surgery for an additional month due to an open sore on his leg for concerns of infection. Contact monitoring: PPE used during therapy: Therapist was wearing the following PPE throughout entire session: surgicalmask Patient was wearing a mask during therapy session: yes Additional Staff Present During Session: no OBJECTIVE Pain: Back pain, left leg pain. Pain was not rated on pain scale today. TREATMENT Treatment today consisted of: Performed??the Sci-Fit Total body ergometer times 15??minutes at a level??3??resistance. ??Leg press??80#??3??x 15??reps.?Forward ups??2??x 10 reps each.?Standing partial squats??2??x 10 reps each. ??Ambulated in the parallel bars without UE support, mild antalgic gait. ?? Home Exercise Program/Education: Supine Knee Extension Stretch [...] compliance with his HEP. Assessment Clinical Impression: Patient tolerated treatment session well. Despite back pain patient is able to complete all exercises safely and correctly. Patient's strength is gradually improving. Functional Goals and Timeframes: PT Goal #1: [...] Date: 12/06/2021 Plan Plan for next session: Strengthening Time Spent with Patient Therapeutic Interventions Therapeutic Exercise (min): 35 min Time Tracking Total Timed Units (min): 35 min Total Treatment Time (min): 35 min Anoop Acosta P.T. - 12/17/2021 10:00 AM CDT PHYSICAL THERAPY DISCHARGE NOTE Medical Diagnosis: Fracture Femur Lower Multiple Closed Initial Left (HCC) Date of Onset: 09/30/21 Start of care date: 10/22/21 Number of visits from start of care: 18 Date of final visit: 12/17/21 DISCHARGE STATUS STATUS OF GOALS: Current status unknown as pt has not been seen in physical therapy since their lastvisit. Please see last note on 12/17/21 regarding status at that point in time. REASON FOR DISCHARGE: Pt did not return for therapy. Pt has had 6 no-show visits since last session.Attempted to contact patient without response. He is being discharged from therapy at this time. He has upcoming back surgery scheduled for 01/27/22. DISCHARGE PLAN/RECOMMENDATIONS: It is recommended that the patient continue with therapeutic recommendations provided in the course of their care. If additional skilled care is indicated in the future,a new physical therapy order and evaluation would be required. documented in this encounter Miscellaneous Notes Addendum Note - Anoop Acosta P.T. - 12/17/2021 10:00 AM CDT Addended by: ANOOP ACOSTA on: 01/09/2022 01:57 PM Modules accepted: Orders documented in this encounter Plan of Treatment Not on filedocumented as of this encounter Visit Diagnoses Diagnosis Fracture Femur Lower Multiple Closed Ini tial Left (HCC) documented in this encounter Additional Health Concerns Assessment Noted Time PHQ-9 Depression Total Score: 18 02/14/2013 9:53 AM CD T documented as of this encounter Care Teams Webbing Inspector Relationship Specialty Start Date End Date Cintia Cobb M.D. PCP - General 02/19/17 02/20/[id number] [address] documented as of this encounter
--- OUTSIDE RECORDS SUMMARY | 2022-07-29 10:42 | XMS_ITS | Encounter Summary ---
:1960 Author Organization [facility] Address [address] [place] [address] Care Team Providers Name Role Phone Cintia Cobb M.D. Primary Care Provider [phone] Reason for Visit Reason Comments Med Refill Encounter Details Date Type Department Care Team Description 12/18/2021 Refill Department of [facility] Angélica Cobb Med Refill Medicine, [facility] M[facility], in [address] [address] [place], [place] [address] [phone] Social History Tobacco Use Types Packs/Day Years [...] documented as of this encounter Care Teams Cable Mock Up Assembler Relationship Specialty Start Date End Date Cintia Cobb M.D. PCP - General 02/19/17 02/20/[address] [place] [phone] documented as of this encounter
--- OUTSIDE RECORDS SUMMARY | 2022-07-29 10:42 | XMS_ITS | Encounter Summary ---
:1960 Author Organization [facility] Address [address] [place] [address] Care Team Providers Name Role Phone Cintia Cobb M.D. Primary Care Provider [phone] Reason for Visit Physical Therapy (Routine) - Canceled Specialty Diagnoses / Procedures Referred By Contact Refer red To Contact Diagnoses Fracture Femur Lower Multiple Closed Initial Left (HCC) Nathen Burger M.D. [facility] Procedures PT Ongoing treatment [facility] [address] [address] Referral ID Status Reason Start Date Expiration Date Visits V isits Requested Authorized [id number] Canceled 10/22/2021 10/22/2022 40 40 Encounter Details Date Type Department Care Team Description 12/13/2021 Clinical Support Department of Gustavo Burger M.D. [address] [address] Fracture Femur Rehabilitation Lesli Dias, P.T. [address] [place] [phone] Lower Multiple Services in [place] Closed In itial [place], [place] ([facility]) [address] [place] [phone] Social History Tobacco Use Types Packs/Day Years Used Date Smoking Tobacco: Never Smokeless Tobacco: Never Alcohol Use Standard Drinks/Week Comments No 0 (1 standard drink = 0.6 oz pure alcoho l) Sex Assigned at Date Recorded Not on file documented as of this encounter Progress Notes Lesli Dias P.T. - 12/13/2021 11:00 AM CDT Physical Therapy Outpatient Treatment Note SUBJECTIVE Patient's Name: Laz Luna Referring Provider: Nathen Burger M.D. Visit Diagnosis: 1. Fracture Femur Lower Multiple Closed Initial Left (HCC) Payor: [id number] [place] CARE / Plan: [place] BLUE PLUS HMO / Product Type: Medicaid HMO / No data recorded Epic Visit Count: 17 Patient comments: Patient continues to report a flare of his back pain. Contact monitoring: PPE used during therapy: Therapist was wearing the following PPE throughout entire session: surgicalmask Patient was wearing a mask during therapy session: yes Additional Staff Present During Session: no OBJECTIVE Pain: LBP TREATMENT Treatment today consisted of: Performed??the [employer]-Fit Total body ergometer times 15??minutes at a level??3??resistance. ??Leg press??70#??3??x 15??reps.?Forward ups??2??x 10 reps each.?Standing partial squats??2??x [...] with his HEP. Assessment Clinical Impression: Tolerated session well. Gradually improving strength. Functional Goals and Timeframes: PT Goal [...] Date: 12/06/2021 Plan Plan for next session: continue with current plan of care. Time Spent with Patient Therapeutic Interventions Therapeutic Exercise (min): 35 min Time Tracking Total Timed Units (min): 35 min Total Treatment Time (min): 35 min documented in this encounter Plan of Treatment Not on filedocumented as of this encounter Visit Diagnoses Diagnosis Fracture Femur Lower Multiple Closed Ini tial Left (HCC) documented in this encounter Additional Health Concerns Assessment Noted Time PHQ-9 Depression Total Score: 18 02/14/2013 9:53 AM CD T documented as of this encounter Care Teams Food Inspector Relationship Specialty Start Date End Date Cintia Cobb M.D. PCP - General 02/19/17 02/20/[address] [phone] documented as of this encounter
--- OUTSIDE RECORDS SUMMARY | 2022-07-29 10:42 | XMS_ITS | Encounter Summary ---
:1960 Author Organization [facility] Address [address] [place] [address] Care Team Providers Name Role Phone Cintia Cobb M.D. Primary Care Provider [phone] Reason for Visit Physical Therapy (Routine) - Canceled Specialty Diagnoses / Procedures Referred By Contact Refer red To Contact Diagnoses Fracture Femur Lower Multiple Closed Initial Left (HCC) Nathen Burger M.D. [facility] Procedures PT Ongoing treatment [facility] [address] [address] Referral ID Status Reason Start Date Expiration Date Visits V isits Requested Authorized [id number] Canceled 10/22/2021 10/22/2022 40 40 Encounter Details Date Type Department Care Team Description 12/09/2021 Clinical Support Department of Gustavo Burger M.D. [address] [place] [phone] Fracture Femur Rehabilitation Lesli Dias, P.T. [address] [place] [phone] Lower Multiple Services in [place] Closed In itial [place], [place] ([facility]) [address] [place] [phone] Social History Tobacco Use Types Packs/Day Years Used Date Smoking Tobacco: Never Smokeless Tobacco: Never Alcohol Use Standard Drinks/Week Comments No 0 (1 standard drink = 0.6 oz pure alcoho l) Sex Assigned at Date Recorded Not on file documented as of this encounter Progress Notes Lesli Dias P.T. - 12/09/2021 10:00 AM CDT Physical Therapy Outpatient Treatment Note SUBJECTIVE Patient's Name: Laz Luna Referring Provider: Nathen Burger M.D. Visit Diagnosis: 1. Fracture Femur Lower Multiple Closed Initial Left (HCC) Payor: [email or web address] [place] CARE / Plan: [facility] BLUE PLUS HMO / Product Type: Medicaid HMO / No data recorded Epic Visit Count: 14 Patient comments: Patient reports gluteal and left leg pain. He reports he feels this is coming fromhis back. He is scheduled for back surgery at the end of the month. Contact monitoring: PPE used during therapy: Therapist was wearing the following PPE throughout entire session: surgicalmask Patient was wearing a mask during therapy session: yes Additional Staff Present During Session: no OBJECTIVE Pain: left leg pain, not rated on pain scale. TREATMENT Treatment today consisted of: Performed??the Sci-Fit Total body ergometer times 15??minutes at a level??3??resistance. ??Leg press??50# 3 x 15??reps.?Forward and Lateral step ups x 10 reps each. Standing partial squats x 10 repseach. Ambulated in the parallel bars without UE support, mild antalgic gait. SLS 2 x 30 seconds with2 finger support within the parallel bars. Home Exercise Program/Education: [...] Assessment Clinical Impression: Tolerated treatment session well. Improving strength and gait. Functional Goals and Timeframes: PT Goal #1: [...] Date: 12/06/2021 Plan Plan for next session: strengthening Time Spent with Patient Therapeutic Interventions Gait Training (min): 5 min Therapeutic Exercise (min): 25 min Time Tracking Total Timed Units (min): 30 min Total Treatment Time (min): 30 min documented in this encounter Plan of Treatment Not on filedocumented as of this encounter Visit Diagnoses Diagnosis Fracture Femur Lower Multiple Closed Ini tial Left (HCC) documented in this encounter Additional Health Concerns Assessment Noted Time PHQ-9 Depression Total Score: 18 02/14/2013 9:53 AM CD T documented as of this encounter Care Teams Cnc Maintenance Mechanic Relationship Specialty Start Date End Date Cintia Cobb M.D. PCP - General 02/19/17 02/20/[address] [place] [phone] documented as of this encounter
--- OUTSIDE RECORDS SUMMARY | 2022-07-29 10:43 | XMS_ITS | Encounter Summary ---
:1960 Author Organization [facility] Address [address] [place] [address] Care Team Providers Name Role Phone Cintia Cobb M.D. Primary Care Provider [phone] Reason for Visit Physical Therapy (Routine) - Canceled Specialty Diagnoses / Procedures Referred By Contact Refer red To Contact Diagnoses Fracture Femur Lower Multiple Closed Initial [facility] ([facility]) Nathen Burger M.D. [facility] Procedures PT Ongoing [facility] [address] [address] Referral ID Status Reason Start Date Expiration Date Visits V isits Requested Authorized [id number] Canceled 10/22/2021 10/22/2022 40 40 Encounter Details Date Type Department Care Team Description 12/04/2021 Clinical Support Department of Gustavo Burger M.D. [address] [address] Fracture Femur Rehabilitation Emelia Acosta, P.TPili Lower Multiple Services in [facility] In [place], [place] ([facility]) [address] [place] [phone] Social History Tobacco Use Types Packs/Day Years Used Date Smoking Tobacco: Never Smokeless Tobacco: Never Alcohol Use Standard Drinks/Week Comments No 0 (1 standard drink = 0.6 oz pure alcoho l) Sex Assigned at Date Recorded Not on file documented as of this encounter Progress Notes Emelia Acosta P.T. - 12/04/2021 2:15 PM CDT Physical Therapy Outpatient Treatment Note SUBJECTIVE Patient's Name: Laz Cuauhtemoc Luna Referring Provider: Nathen Burger M.D. Visit Diagnosis: 1. Fracture Femur Lower Multiple Closed Initial Left (HCC) Payor: [employer] [place] CARE / Plan: [place] BLUE PLUS HMO / Product Type: Medicaid HMO / No data recorded Epic Visit Count: 12 Patient comments: Pt reports progress made in functional mobility. 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 He has LE wound that was evaluated yesterday and has additional questions pertaining to discussed [place] that was not provided to him. Contact monitoring: PPE used during therapy: Therapist was wearing the following PPE throughout entire session: surgicalmask and eye protection Patient was wearing a mask during therapy session: yes OBJECTIVE Pain: anterior L knee pain, not rated on pain scale TREATMENT Treatment today consisted of: Therapeutic Exercise: -sci-fit bike, L3, x15 minutes -standing knee flexion stretch on L on step x20 repetitions -lateral step ups on 6 step with UE support, 1x12 repetitions bilateral -DL press, 40#, 3x10 repetitions Gait Training: -Negotiated 4x4 6 steps with L rail, adjusting between step-to and reciprocal gait pattern, cues for hip positioning with stairs Home Exercise Program/Education: Continue Supine Knee Extension Stretch on Towel Roll [...] weekly - 3 sets - 10 reps ?? Pt reports good compliance with his HEP. Assessment Clinical Impression: Pt tolerated session well. He continues to have deficits with gait stability using SPC but improving. He demonstrates weakness with L lateral step ups, needing to pull self up withUE's compared to R side. Did get in touch with clinic nursing staff and on-site wound nurse via DEVANTE Lozada, to discuss pt's questions. Pt was encouraged to reach out to Dr. Song or nurse triage for additional assistance but patient does not wish to use nurse triage at this time. Encouraged importance of future vascular wound referral that is in process of finding the closest option for him by primary care. Functional Goals and Timeframes: PT Goal #1: [...] Date: 12/06/2021 Plan Plan for next session: knee ROM, LE strength, dynamic balance Time Spent with Patient Therapeutic Interventions Gait Training (min): 5 min Therapeutic Exercise (min): 30 min Time Tracking Total Timed Units (min): [...] documented as of this encounter Care Teams Implementation Engineer Relationship Specialty Start Date End Date Cintia Cobb M.D. PCP - General 02/19/17 02/20/[id number] [phone] documented as of this encounter
--- OUTSIDE RECORDS SUMMARY | 2022-07-29 10:43 | XMS_ITS | Encounter Summary ---
:1960 Author Organization [facility] Address [address] [place] [address] Care Team Providers Name Role Phone Cintia Cobb M.D. Primary Care Provider [phone] Reason for Visit Physical Therapy (Routine) - Canceled Specialty Diagnoses / Procedures Referred By Contact Refer red To Contact Diagnoses Fracture Femur Lower Multiple Closed Initial Left (HCC) Nathen Burger M.D. [facility] Procedures PT Ongoing treatment [facility] [address] [address] Referral ID Status Reason Start Date Expiration Date Visits V isits Requested Authorized [id number] Canceled 10/22/2021 10/22/2022 40 40 Encounter Details Date Type Department Care Team Description 10/25/2021 Clinical Support Department of Gustavo Burger M.D. [address] [address] Fracture Femur Rehabilitation Lesli Dias, P.T. [address] [place] [phone] Lower Multiple Services in [place] Closed In itial [place], [place] ([facility]) [address] [place] [phone] Social History Tobacco Use Types Packs/Day Years Used Date Smoking Tobacco: Never Smokeless Tobacco: Never Alcohol Use Standard Drinks/Week Comments No 0 (1 standard drink = 0.6 oz pure alcoho l) Sex Assigned at Date Recorded Not on file documented as of this encounter Progress Notes Lesli Dias P.T. - 10/25/2021 1:00 PM CST Physical Therapy Outpatient Treatment Note SUBJECTIVE Patient's Name: Laz Luna Referring Provider: Nathen Burger M.D. Visit Diagnosis: 1. Fracture Femur Lower Multiple Closed Initial Left (HCC) Payor: [employer] [facility] CARE / Plan: [facility] BLUE PLUS HMO / Product Type: Medicaid HMO / No data recorded Epic Visit Count: 1 Patient comments: Patient has no new complaints. Contact monitoring: PPE used during therapy: Therapist was wearing the following PPE throughout entire session: surgicalmask Patient was wearing a mask during therapy session: yes Additional Staff Present During Session: no OBJECTIVE Pain: decreasing Ortho Exam Left knee ROM lacking 8 degrees from neutral for knee extension to 95 degrees of knee flexion. TREATMENT Treatment today consisted of: Perform the [employer]-Fit Total body ergometer times 10 minutes at a level 1 resistance. Performed standing hamstring and gastroc stretch at x 60 seconds each. Perform prolonged knee extension stretches at 2x 60 seconds. Performed passive range of motion for knee flexion with active assistive heel slides and passive knee flexion stretch. Ambulated with a front wheel walker 2 x 100 ft diminished heel strike and increased knee flexion during stance phase. Negotiated 4 steps 1 step at a time with bilateral hand rails with contact guard assist using a gait belt. Home Exercise Program/Education: Access Code: [email or web address] URL: [email or web address] Date: 10/22/2021 Prepared by: Lesli Dias ?? Exercises Supine Heel Slides - 1 x daily - 7 x weekly - 3 sets - 10 reps Supine Knee Extension Stretch on Towel Roll [...] Clinical Impression: Patient tolerated treatment session well. Patient is demonstrating improved mobility. He has been able to get up at night and walking to his bathroom with use of the walker versus using a urinal bedside. Patient will continue to benefit from skilled physical therapy to regain functional range of motion and strength and restore his gait pattern. Functional Goals and Timeframes: PT Goal #1: [...] Date: 12/06/2021 Plan Plan for next session: Gait, range of motion and strengthening. Time Spent with Patient Gait Training (min): 10 min Therapeutic Exercise (min): 20 min Time Calculation Total Timed Units (min): 30 min Total Treatment Time (min): 30 min HER FILTER TIP documented in this encounter Plan of Treatment Not on filedocumented as of this encounter Visit Diagnoses Diagnosis Fracture Femur Lower Multiple Closed Ini tial Left (HCC) documented in this encounter Additional Health Concerns Assessment Noted Time PHQ-9 Depression Total Score: 18 02/14/2013 9:53 AM CD T documented as of this encounter Care Teams L[employer] Worker Helper Relationship Specialty Start Date End Date Cintia Cobb M.D. PCP - General 02/19/17 02/20/[address] [phone] documented as of this encounter
--- OUTSIDE RECORDS SUMMARY | 2022-07-29 10:43 | XMS_ITS | Encounter Summary ---
:1960 Author Organization [facility] Address [address] [place] [address] Care Team Providers Name Role Phone Cintia Cobb M.D. Primary Care Provider [phone] Reason for Visit Physical Therapy (Routine) - Canceled Specialty Diagnoses / Procedures Referred By Contact Refer red To Contact Diagnoses Fracture Femur Lower Multiple Closed Initial Left (HCC) Nathen Burger M.D. [facility] Procedures PT Ongoing treatment [facility] [address] [address] Referral ID Status Reason Start Date Expiration Date Visits V isits Requested Authorized [id number] Canceled 10/22/2021 10/22/2022 40 40 Encounter Details Date Type Department Care Team Description 10/30/2021 Clinical Support Department of Gustavo Burger M.D. [address] [address] Fracture Femur Rehabilitation Lesli Dias, P.T. [address] [place] [phone] Lower Multiple Services in [place] Closed In itial [place], [place] ([facility]) [address] [place] [phone] Social History Tobacco Use Types Packs/Day Years Used Date Smoking Tobacco: Never Smokeless Tobacco: Never Alcohol Use Standard Drinks/Week Comments No 0 (1 standard drink = 0.6 oz pure alcoho l) Sex Assigned at Date Recorded Not on file documented as of this encounter Progress Notes Lesli Dias P.T. - 10/30/2021 2:00 PM CST Physical Therapy Outpatient Treatment Note SUBJECTIVE Patient's Name: Laz Luna Referring Provider: Nathen Burger M.D. Visit Diagnosis: 1. Fracture Femur Lower Multiple Closed Initial Left (HCC) Payor: [employer] [facility] CARE / Plan: [facility] BLUE PLUS HMO / Product Type: Medicaid HMO / No data recorded Epic Visit Count: 2 Patient comments: Patient has no new complaints. Contact monitoring: PPE used during therapy: Therapist was wearing the following PPE throughout entire session: surgicalmask Patient was wearing a mask during therapy session: yes Additional Staff Present During Session: no OBJECTIVE Pain: 0-2/10 Ortho Exam Left knee ROM 0 degrees knee extension to 95 degrees of knee flexion. TREATMENT Treatment today consisted of: Perform the [employer]-Fit Total body ergometer times 10 minutes at a level 1 resistance. Perform prolongedknee extension stretches at 2 x 60 seconds 3# proximal to the knee. Performed passive range of motion for knee flexion with active assistive heel slides 3 x 10 reps and passive knee flexion stretch. Amb ulated with a front wheel walker 2 x 100 ft improved heel strike noted and approximately 2 degrees of knee flexion noted in stance phase. Negotiated 12 steps reciprocal gait pattern with bilateral handrails with contact guard assist using a gait belt. Patient utilizes the hands when pushing up with the involved lower extremity to compensate for lower extremity weakness. Patient also demonstrates mild compensation with slight circumduction when ascending the stairs the involved lower extremity and external rotation when descending the stairs. Home Exercise Program/Education: Supine Heel Slides - 1 x daily [...] treatment session well. Patient is demonstrating improved knee extension passively and during gait. Improved heel strike is noted with a more upright posture noted during gait as well. Patient should continue to utilize the walker at all times to minimize fall risk. Patient continue to benefit from skilled physical therapy for range of motion, quad strengtheningand gait training. Functional Goals and Timeframes: PT Goal #1: [...] Date: 12/06/2021 Plan Plan for next session: Range of motion, quad strengthening and gait training. 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 PCP - General 02/19/17 02/20/[id number] [phone] documented as of this encounter
--- OUTSIDE RECORDS SUMMARY | 2022-07-29 10:43 | XMS_ITS | Encounter Summary ---
:1960 Author Organization [facility] Address [address] [place] [address] Care Team Providers Name Role Phone Cintia Cobb M.D. Primary Care Provider Reason for Referral Outpatient (Routine) - Authorized Specialty Diagnoses / Procedures Referred By Contact Refer red To Contact Diagnoses Wound Lower Leg Open Initial Right Diabetes Mellitus Type 2 Peripheral Neuropathy (HCC) Cintia Cobb Referring S, M.D. Provider [address] [place] [phone] Referral ID Status Reason Start Expiration Visits Visits Date Date Requested Authorized [id number] Authorized Patient 12/05/2021 12/05/2022 1 1 Preference Reason for Visit Reason Comments Wound referral Encounter Details Date Type Department Care Team Description 12/03/2021 Clinical Communication [facility] [place] [facility], in [address] [address] [place], [place] [phone] (Work) [phone] Social History Tobacco Use Types Packs/Day Years Used Date Smoking Tobacco: Never Smokeless Tobacco: Never Alcohol Use Standard Drinks/Week Comments No 0 (1 standard drink = 0.6 oz pure alcoho l) Sex Assigned at Date Recorded Not on file documented as of this encounter Miscellaneous Notes Telephone Encounter - Cintia Cobb M.D. - 12/05/2021 8:39 AM CDT Spoke with patient today and he would prefer something closer than a [place]. He is willing to have a referral placed to [place] but is on sure if they will accept him. Patient states that if they willaccept him, they should contact his to schedule which is the number in the chart. Wound was also re-evaluated while patient was in physical therapy. Lower extremity edema is resolvedwith the Felix wraps currently. The wound is now slightly contracted from previous exam with thick dryslough/scab in the base. Eschar is not as readily apparent in the center. When removing the Aquacel Ag which has been in place since last evening, this sticks to the lower portion of the wound and causes bleeding with removal. Discussed that the wound in this state is too dry. Recommended that they apply Medihoney and a gauze bandage and continue with Felix wraps. Telephone Encounter - Laura Mejia R.N. - 12/04/2021 8:38 AM CDT Per Karen Rader, the closest wound clinic within their system for pt would be [facility] location: Located in: [facility] Address: [address] [place] [address] Telephone Encounter - Cintia Cobb M.D. - 12/03/2021 8:30 PM CDT Patient has a wound and we need to refer him to a vascular Medicine/drug safety data management specialist. Can we please call the [facility] to determine the closest clinic that offers these services?Once we know, we can place the referral. documented in this encounter Plan of Treatment Not on filedocumented as of this encounter Visit Diagnoses Diagnosis Wound Lower Leg Open Initial Right - Jeanne melonie Diabetes Mellitus Type 2 Peripheral Neur opathy (HCC) documented in this encounter Additional Health Concerns Assessment Noted Time PHQ-9 Depression Total Score: 18 02/14/2013 9:53 AM CD T documented as of this encounter Care Teams Fixed Wing Pilot Relationship Specialty Start Date End Date Cintia Cobb M.D. PCP - General 02/19/17 02/20/[address] [place] [phone] documented as of this encounter
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
--- OUTSIDE RECORDS SUMMARY | 2022-07-29 10:43 | XMS_ITS | Encounter Summary ---
:1960 Author Organization [facility] Address [address] [place] [address] Care Team Providers Name Role Phone Cintia Cobb M.D. Primary Care Provider [phone] Reason for Visit Physical Therapy (Routine) - Canceled Specialty Diagnoses / Procedures Referred By Contact Refer red To Contact Diagnoses Fracture Femur Lower Multiple Closed Initial Left (HCC) Nathen Burger M.D. [facility] Procedures PT Ongoing treatment Critical access hospital0 [address] [address] Referral ID Status Reason Start Date Expiration Date Visits V isits Requested Authorized [id number] Canceled 10/22/2021 10/22/2022 40 40 Encounter Details Date Type Department Care Team Description 11/19/2021 Clinical Support Department of Gustavo Burger M.D. [address] [address] Fracture Femur Rehabilitation Lesli Dias, P.T. [address] [place] [phone] Lower Multiple Services in [place] Closed In itial [place], [place] ([facility]) [address] [place] [phone] Social History Tobacco Use Types Packs/Day Years Used Date Smoking Tobacco: Never Smokeless Tobacco: Never Alcohol Use Standard Drinks/Week Comments No 0 (1 standard drink = 0.6 oz pure alcoho l) Sex Assigned at Date Recorded Not on file documented as of this encounter Progress Notes Lesli Dias P.T. - 11/19/2021 10:45 AM CDT Physical Therapy Outpatient Treatment Note SUBJECTIVE Patient's Name: Laz Luna Referring Provider: Nathen Burger M.D. Visit Diagnosis: 1. Fracture Femur Lower Multiple Closed Initial Left (HCC) Payor: [employer] [facility] CARE / Plan: [facility] BLUE PLUS HMO / Product Type: Medicaid HMO / No data recorded Epic Visit Count: 8 Patient comments: Patient has noted increased swelling. He feels his tubigrip is too loose. He has found some success using an elbow sleeve. Contact monitoring: PPE used during therapy: Therapist was wearing the following PPE throughout entire session: surgicalmask Patient was wearing a mask during therapy session: yes Additional Staff Present During Session: no OBJECTIVE Pain: 2-6/10 Ortho Exam Left knee AROM 0-117 degrees. TREATMENT Treatment today consisted of: Patient ambulated to physical therapy 150 ft using a??cane. Patient does demonstrate terminal knee extension in his heel strike today. Patient's gait is slower and more antalgic today. ??Perform the Sci-Fit Total body ergometer times 12??minutes at a level 3 resistance. ??Negotiated a flight of stairswith single hand rail, intermittent touching of the second hand, with reciprocal gait pattern ascending the stairs and then one step pattern descending the stairs.. ??Patient utilized the handrails formoderate upper body support offset the weight of the left lower extremity. ??Contact guard assist was applied through gait belt.?Leg press 30# 3 x 10 reps. Standing partial squats 2 x 10 reps. Home Exercise Program/Education: Supine Knee Extension Stretch [...] Clinical Impression: Tolerated treatment session well. Improving ROM. Increased swelling today and sol antalgic gait pattern also noted. Functional Goals and Timeframes: PT Goal #1: [...] Date: 12/06/2021 Plan Plan for next session: ROM, strengthening and gait. Time Spent with Patient Gait Training (min): [...] documented as of this encounter Care Teams Registered Nurse Cardiac Relationship Specialty Start Date End Date Cintia Cobb M.D. PCP - General 02/19/17 02/20/[address] [phone] documented as of this encounter
--- OUTSIDE RECORDS SUMMARY | 2022-07-29 10:43 | XMS_ITS | Encounter Summary ---
:1960 Author Organization [facility] Address [address] [place] [address] Care Team Providers Name Role Phone Cintia Cobb M.D. Primary Care Provider [phone] Encounter Details Date Type Department Care Team Description 09/09/2021 Orders Only Department of [facility] Angélica Cobb Medicine, Jose Daniel Piper M.D. Clinic, [address] [address] [place], [place] [phone] (W ork) [phone] Social History Tobacco Use Types Packs/Day Years [...] documented as of this encounter Care Teams Global Recruiter Relationship Specialty Start Date End Date Cintia Cobb M.D. PCP - General 02/19/17 02/20/[address] [place] [phone] documented as of this encounter
--- OUTSIDE RECORDS SUMMARY | 2022-07-29 10:43 | XMS_ITS | Encounter Summary ---
:1960 Author Organization [facility] Address [address] [place] [address] Care Team Providers Name Role Phone Cintia Cobb M.D. Primary Care Provider [phone] Reason for Visit Reason Comments Fall Left knee pain from fall at home Encounter Details Date Type Department Care Team Description 09/30/2021 Emergency [place] Lina[place], History Of Falling (Primary Dx); Emergency Department P.A.-C. Fracture Lower End Femur Supracondylar W ith Intracondylar Extension Displaced Closed Initial Left (HCC) [address] [place] [address] [address] [place] [phone] (Wo rk) Social History Tobacco Use Types Packs/Day Years Used Date Smoking Tobacco: Never Smokeless Tobacco: Never Alcohol Use Standard Drinks/Week Comments No 0 (1 standard drink = 0.6 oz pure alcoho l) Sex Assigned at Date Recorded Not on file documented as of this encounter Last Filed Vital Signs Vital Sign Reading Time Taken Comments Blood Pressure 143/88 09/30/2021 4:15 PM INTERNATIONAL ORGANIZER Pulse 79 09/30/2021 4:25 PM INTERNATIONAL ORGANIZER Temperature 36.7 ??C (98.1 ??F) 09/30/2021 8:30 AM INTERNATIONAL ORGANIZER Respiratory Rate 18 09/30/2021 8:30 AM INTERNATIONAL ORGANIZER Oxygen Saturation 98% 09/30/2021 4:25 PM INTERNATIONAL ORGANIZER Inhaled Oxygen Concentration - - Weight 81 kg (178 lb 9.2 oz) 09/30/2021 8:25 AM INTERNATIONAL ORGANIZER Height - - Body Mass Index 24.22 08/12/2019 12:43 PM INTERNATIONAL ORGANIZER documented in this encounter Medications at Time [...] E11.9, brand per insurance preference blood-glucose meter 1 each daily. 1 each 1 each 0 2019 misc daily. Dx: E11.9. Brand per insurance coverage. calcium carbonate Chew 2 tablets 2 0 (TUMS) 500 mg (200 mg (two) times a day. calcium) chewable tablet finasteride (PROSCAR) 5 Take 1 tablet (5 mg 90 tablet 3 03/202108/13/2022 mg tablet total) by mouth daily. furosemide (LASIX) 40 TAKE ONE TABLET BY 90 tablet 3 2021 mg tablet MOUTH DAILY lancets 1 each daily. Dx: 100 each 11 11/09/2019 E11.9. Brand per insurance coverage. loperamide (IMODIUM Take 2 mg by mouth 4 0 A-D) 2 mg capsule (four) times a day as needed for diarrhea. PEDIATRIC MULTIVITAMIN Take 4 tablets by 0 2015 NO.76 (FLINTSTONES mouth daily. COMPLETE ORAL) traZODone (DESYREL) 50 Take 1-2 tablets 60 tablet 11 021 mg tablet (50-100 mg total) by mouth at bedtime as needed for sleep. omeprazole (PriLOSEC) Take 1 capsule (20 90 capsule 3 202012/18/[address] capsule mg total) by mouth every morning before breakfast. tamsulosin (FLOMAX) 0.4 Take 2 capsules (0.8 180 capsule 3 0 12/18/2020 11/19/2021 mg 24 hr capsule mg total) by mouth daily. documented as of this encounter ED Notes Noe Linares P.A.-C. - 09/30/2021 8:28 AM CST Images from the original note were not included. SUBJECTIVE CHIEF COMPLAINT/REASON FOR VISIT Fall (Left knee pain from fall at home) HISTORY OF PRESENT ILLNESS Pt is a 61 year old male who presents to ED complaining of left leg pain and inability to walk sincefalling from standing at home. Pt was walking to his truck and slipt, left leg went up in the air and twisted as he landed. He has notable swelling and severe pain just above the left knee. He had no head injury, LOC, neck pain, no other injuries in general. His called EMS and he was subsequentlybrought to ED REVIEW OF SYSTEMS Musculoskeletal: Positive for gait problem, joint swelling and extremity pain. All other systems reviewed and are negative. OBJECTIVE Initial Vitals Temperature Pulse Rate Heart Rate Resp Rate Blood Pressure SpO2 09/30/21 0830 09/30/21 0830 -- 09/30/21 0830 09/30/21 0830 09/30/21 0830 36.7 ??C 63 18 157/84 99 % Pain Score 09/30/21 0911 8 PHYSICAL EXAMINATION Constitutional: Vitals reviewed. He appears well-nourished. HENT: Head: Atraumatic. Mouth/Throat: Mucous membranes are moist. Neck: Neck supple. Cardiovascular: Normal rate, regular rhythm, normal heart sounds, intact distal pulses and normal pulses. Capillary refill: takes less than 3 seconds, Pulmonary/Chest: Effort normal and breath sounds normal. Abdominal: Soft. Bowel sounds are normal and non-distended. There is no abdominal tenderness. Musculoskeletal: General: Normal range of motion. Cervical back: Neck supple. Left upper leg: Swelling, deformity and tenderness present. Legs: Comments: Tenderness, swelling and deformity as indicated Neurological: Alert and oriented to person, place, and time. He has normal strength. Skin: Skin is warm and dry. Psychiatric: He has a normal mood and affect. Behavior is normal. ASSESSMENT/PLAN IMPRESSION AND PLAN 1) Left distal femur fracture with comminution and impaction -Discussed case with ATC who spoke to Dr Mccoy, research environmental scientist for ortho/trauma, requested we obtain surgical prescreening and will take Pt as a direct admit after work up is complete ED Course as of 09/30/21 1630 Mon Sep 30, 2021 1629 Pt refused blood transfusion, stating that he doesn't trust anyone elses blood in his body. Final Diagnoses: as of 09/30/21 1630 History Of Falling Fracture Lower End Femur Supracondylar With Intracondylar Extension Displaced Closed Initial Left (HCC) Noe Linares P.A.-C. 10/04/21 0350 RNATIONAL ORGANIZER documented in this encounter Plan of Treatment Not on filedocumented as of this encounter Procedures Procedure Name Priority Date/Time Associated Comments Diagnosis TESTING LOCATION STAT 09/30/2021 1:22 Results for PM INTERNATIONAL ORGANIZER this procedure are in the results section. ECG STAT 09/30/2021 10:45 Results for AM INTERNATIONAL ORGANIZER this procedure are in the results section. CBC WITH STAT 09/30/2021 10:40 Results for DIFFERENTIAL, B AM INTERNATIONAL ORGANIZER this procedu re are in the results section. COMPREHENSIVE STAT 09/30/2021 10:40 Results fo r METABOLIC PANEL, S/P AM INTERNATIONAL ORGANIZER this pr ocedure are in the results section. SARS CORONAVIRUS 2, STAT 09/30/2021 10:36 Resu lts for PCR RAPID, V AM INTERNATIONAL ORGANIZER this procedure are in the results section. DX CHEST PORTABLE 1 RAD - Semiurgent 09/30/2021 10:22 Results for VIEW (Fast; most ED AM INTERNATIONAL ORGANIZER this procedur e patients; some are in the inpatients) results section. DX KNEE LEFT 4+ RAD - Semiurgent 09/30/2021 9:12 Resul ts for VIEWS (Fast; most ED AM INTERNATIONAL ORGANIZER this procedur e patients; some are in the inpatients) results section. documented in this encounter Results Testing Location (09/30/2021 1:22 PM INTERNATIONAL ORGANIZER) P athologist Signature Testing CANCELED 09/30/2021 CNFL Location 2:56 PM INTERNATIONAL ORGANIZER Comment: REVISED RESULTS ----PREVIOUSLY REPORTED ---- [facility], Flagged as: Normal (Reported 09/30/2021 13:22) Specimen Anatomical Collection Method Collection Time Receive d Time (Source) Location / / Volume Laterality Blood 09/30/2021 1:22 PM 2 1:22 INTERNATIONAL ORGANIZER PM INTERNATIONAL ORGANIZER Narrative [facility] - 09/30/2021 2:56 PM INTERNATIONAL ORGANIZER Testing Location was cancelled on 09/30/2021 at 14:56; Per provider's request. !CNCL! Noe Linares P.A.-C. LAB BLOOD BANK TEST ORDERABL ES Performing Organization Address City/[facility] Phon e Number [address] [address] [place] [address] [place] [address] [address] ECG 12 Lead (09/30/2021 10:45 AM INTERNATIONAL ORGANIZER) P athologist Signature Ventricular Rate 70 BPM MUSE ECG/Min AL Interval 188 ms MUSE QRSD Interval 176 ms MUSE QT Interval 462 ms MUSE QTC Interval 498 ms MUSE R [place] -83 degrees MUSE T Wave [place] 79 degrees MUSE Specimen Anatomical Collection Method Collection Time Receive d Time (Source) Location / / Volume Laterality 09/30/2021 10:45 09/30/2021 AM INTERNATIONAL ORGANIZER 10:50 AM INTERNATIONAL ORGANIZER Impressions MUSE - 09/30/2021 10:50 AM INTERNATIONAL ORGANIZER Dual chamber electronic pacemaker Sinus rhythm When compared with ECG of 12-AUG-2019 09 :24, No significant change was found Reviewed by KARINA Callaway Narrative This result has an attachment that is no t available. Procedure Note Kaiser Skaggs Jr., M.D. - 09/30/2021For matting of this note might be different from the original. IMPRESSION: Dual chamber electronic pacemaker Sinus rhythm When compared with ECG of 12-AUG-2019 09 :24, No significant change was found Reviewed by KARINA Callaway Noe Linares P.A.-C. ECG ORDERABLES Performing Organization Address City/[facility]/ZIP Code Phon e Number MUSE MUSE NA (ABNORMAL) Comprehensive Metabolic Panel (09/30/2021 10:40 AM INTERNATIONAL ORGANIZER) P athologist Signature Potassium, P 4.5 3.6 - 5.2 09/30/2021 CNFL mmol/L 11:22 AM INTERNATIONAL ORGANIZER Sodium, P 136 135 - 145 09/30/2021 CNFL mmol/L 11:22 AM INTERNATIONAL ORGANIZER Chloride, P 102 98 - 107 09/30/2021 CNFL mmol/L 11:22 AM INTERNATIONAL ORGANIZER Bicarbonate, P 22 22 - 29 09/30/2021 CN[facility] mmol/L 11:22 AM INTERNATIONAL ORGANIZER Anion Gap, P 12 7 - 15 09/30/2021 CNFL 11:22 AM INTERNATIONAL ORGANIZER BUN (Blood Urea 29 (H) 8 - 24 09/30/2021 CNFL Nitrogen), P mg/dL 11:22 AM INTERNATIONAL ORGANIZER Creatinine 0.91 0.74 - 09/30/2021 CNFL 1.35 mg/dL 11:22 AM INTERNATIONAL ORGANIZER eGFR-Black/Afri >90 >=60 09/30/2021 CNFL can [place] Citizen mL/min/BSA 11:22 AM INTERNATIONAL ORGANIZER Comment: ----ADDITIONAL INFORMATION---- Estimated GFR calculated using the 2009 CKD_EPI creatinine equation. eGFR Non-Black/ 89 >=60 mL/min/BSA 09/30/2021 11:22 AM INTERNATIONAL ORGANIZER CNFL Comment: ----ADDITIONAL INFORMATION---- Estimated GFR calculated using the 2009 CKD_EPI creatinine equation. Calcium, Total, P 8.9 8.8 - 10.2 mg/dL 09/30/2021 11:2 2 AM INTERNATIONAL ORGANIZER CNFL Glucose, P 114 70 - 140 mg/dL 09/30/2021 11:22 AM INTERNATIONAL ORGANIZER CNFL Protein, Total, P 6.3 6.3 - 7.9 g/dL 09/30/2021 11:22 AM INTERNATIONAL ORGANIZER CNFL Albumin, P 4.0 3.5 - 5.0 g/dL 09/30/2021 11:22 AM INTERNATIONAL ORGANIZER CNFL Aspartate Aminotransferase 15 8 - 48 U/L 09/30/2021 1 1:22 AM INTERNATIONAL ORGANIZER CNFL (AST), P Alkaline Phosphatase, P 57 40 - 129 U/L 09/30/2021 11 :22 AM INTERNATIONAL ORGANIZER CNFL Alanine Aminotransferase (ALT), 15 7 - 55 U/L 022 11:22 AM INTERNATIONAL ORGANIZER CNFL P Bilirubin, Total, P 0.2 <=1.2 mg/dL 09/30/2021 11:22 A M INTERNATIONAL ORGANIZER CNFL Specimen Anatomical Collection Method Collection Time Receive d Time (Source) Location / / Volume Laterality Blood (Blood, 09/30/2021 10:40 09/30/2021 Venous) AM INTERNATIONAL ORGANIZER 10:40 AM INTERNATIONAL ORGANIZER Noe Linares P.A.-C. LAB BLOOD ADD-ON Performing Organization Address City/State/ZIP Code Phon e Number [facility]- [address] [place] [id number] [place] [address] [address] (ABNORMAL) CBC with Differential, Blood (09/30/2021 10:40 AM INTERNATIONAL ORGANIZER) [facility] gist Method Time Signature Hemoglobin 6.5 (L) 13.2 - 09/30/2021 CNFL 16.6 g/dL 11:16 AM INTERNATIONAL ORGANIZER Hematocrit 23.0 (L) 38.3 - 09/30/2021 CNFL 48.6 % 11:16 AM INTERNATIONAL ORGANIZER Erythrocytes 2.90 (L) 4.35 - 09/30/2021 CNFL 5.65 11:16 AM INTERNATIONAL ORGANIZER x10(12)/L MCV 79.3 78.2 - 09/30/2021 CNFL 97.9 fL 11:16 AM INTERNATIONAL ORGANIZER RBC Distrib Width 16.9 (H) 11.8 - 09/30/2021 CNFL 14.5 % 11:16 AM INTERNATIONAL ORGANIZER Platelet Count 178 135 - 317 09/30/2021 CNFL x10(9)/L 11:16 AM INTERNATIONAL ORGANIZER Leukocytes 6.1 3.4 - 9.6 09/30/2021 CNFL x10(9)/L 11:16 AM INTERNATIONAL ORGANIZER Neutrophils 4.77 1.56 - 09/30/2021 CNFL 6.45 11:16 AM INTERNATIONAL ORGANIZER x10(9)/L Lymphocytes 0.79 (L) 0.95 - 09/30/2021 CNFL 3.07 11:16 AM INTERNATIONAL ORGANIZER x10(9)/L Monocytes 0.40 0.26 - 09/30/2021 CNFL 0.81 11:16 AM INTERNATIONAL ORGANIZER x10(9)/L Eosinophils 0.06 0.03 - 09/30/2021 CNFL 0.48 11:16 AM INTERNATIONAL ORGANIZER x10(9)/L Basophils 0.03 0.01 - 09/30/2021 CNFL 0.08 11:16 AM INTERNATIONAL ORGANIZER x10(9)/L Specimen Anatomical Collection Method Collection Time Receive d Time (Source) Location / / Volume Laterality Blood (Blood, 09/30/2021 10:40 09/30/2021 Venous) AM INTERNATIONAL ORGANIZER 10:40 AM INTERNATIONAL ORGANIZER Noe Linares P.A.-C. LAB BLOOD ADD-ON Performing Organization Address City/[facility] Phon e Number [address] [address] [place] [address] SARS Coronavirus 2, PCR Rapid, V Symptomatic (09/30/2021 10:36 AM INTERNATIONAL ORGANIZER) [facility] Method Time Signature SARS CoV-2, Undetected Undetected 09/30/2021 [facility] PCR, Rapid, V 11:06 AM INTERNATIONAL ORGANIZER Comment: ----ADDITIONAL INFORMATION---- This RT-PCR test was performed using the Lola SARS-CoV-2 and Influenza A/B Reagent assay from [employer], which has received Emergency Use Authori zation(EUA) by the U.S. Food and Drug Administration . Fact sheets for this Emergency Use Autho rization (EUA) assay can be found at the following link s: For Healthcare Providers: https://www.fda.gov/media/678998/downloa d For Patients: https://www.fda.gov/media/634303/downloa d SARS Coronavirus 2, Source, Swab, Nasopharynx 09/08 10:40 AM INTERNATIONAL ORGANIZER FL Rapid Specimen Anatomical Collection Method Collection Time Receive d Time (Source) Location / / Volume Laterality Varies 09/30/2021 10:36 09/30/2021 (Nasopharynx) AM INTERNATIONAL ORGANIZER 10:40 AM INTERNATIONAL ORGANIZER Noe Linares P.A.-C. LAB MICROBIOLOGY - GENERAL O RDERABLES Performing Organization Address City/[facility]/ZIP Code Phon e Number [address] [address] [place] [address] DX Chest Portable 1 View (09/30/2021 10:22 AM INTERNATIONAL ORGANIZER) Anatomical Region Laterality Modality Chest, Thoracic RST LOS, Thoracic ARZ LOS, Thoracic N/A Computed Radiography FLA LOS Specimen (Source) Anatomical Collection Method Collection Time Re ceived Time Location / / Volume Laterality 09/30/2021 10:24 AM INTERNATIONAL ORGANIZER Impressions 09/30/2021 10:25 AM INTERNATIONAL ORGANIZER Comparison 07/27/21. Pacemaker. Heart size normal. Lungs are clear. Narrative 09/30/2021 10:25 AM INTERNATIONAL ORGANIZER EXAM: DX CHEST PORTABLE 1 VIEW Procedure Note Sebas Vegas M.D. - 09/30/2021 EXAM: DX CHEST PORTABLE 1 VIEW IMPRESSION: Comparison 07/27/21. Pacemaker. Heart si ze normal. Lungs are clear. Noe Linares P.A.-C. IMG DIAGNOSTIC IMAGING PROCE DURES DX Knee Left 4+ Views (09/30/2021 9:12 AM INTERNATIONAL ORGANIZER) Anatomical Region Laterality Modality Lower Extremity, Knee, Musculoskeletal RST LOS, Left Digital Radiography Musculoskeletal ARZ LOS, Muskuloskeletal FLA LOS Specimen (Source) Anatomical Collection Method Collection Time Re ceived Time Location / / Volume Laterality 09/30/2021 9:16 AM INTERNATIONAL ORGANIZER Impressions 09/30/2021 9:17 AM INTERNATIONAL ORGANIZER Comparison 04/06/20. Osteopenia. New acute fracture of distal femur diametaphysis with marked comminution, 4 cm impaction, mild medial angulation, and moderate posterior angulation. Arter ial calcifications. Narrative 09/30/2021 9:17 AM INTERNATIONAL ORGANIZER EXAM: DX KNEE LEFT 4+ VIEWS Procedure Note Sebas Vegas M.D. - 09/30/2021 EXAM: DX KNEE LEFT 4+ VIEWS IMPRESSION: Comparison 04/06/20. Osteopenia. New acut e fracture of distal femur diametaphysis with marked comminution, 4 cm impaction, mild medial angulation, and moderate posterior angulation. Arter ial calcifications. Noe FoleyC. IMG DIAGNOSTIC IMAGING PROCE DURES documented in this encounter Visit Diagnoses Diagnosis History Of Falling - Primary Fracture Lower End Femur Supracondylar W ith Intracondylar Extension Displaced Closed Initial Left (HCC) documented in this encounter Administered Medications Inactive Administered Medications - up to 3 most recent administrations Medication Order MAR Action Action Date Dose Rate Site acetaminophen tablet 1,000 mg Given 09/30/2021 12:58 PM INTERNATIONAL ORGANIZER 1,00 0 mg (TYLENOL) 1,000 mg, oral, Once, On Thu09/30/21 at 1233, For 1 dose droperidoL injection 1.875 mg (INAPSINE) Given 09/30/2021 12:58 PM INTERNATIONAL ORGANIZER 1.875 mg 1.875 mg, intravenous, Once, On Thu09/30/21 at 1233, For 1 dose HYDROmorphone injection 1 mg (DILAUDID) Given 09/30/2021 10:58 AM INTERNATIONAL ORGANIZER 1 mg 1 mg, intravenous, Once, On Thu09/30/21 at 1051, For 1 dose HYDROmorphone injection 1 mg (DILAUDID) Given 09/30/2021 11:15 AM INTERNATIONAL ORGANIZER 1 mg 1 mg, intravenous, Once, On Thu09/30/21 at 1113, For 1 dose ketorolac injection 15 mg (TORADOL) Given 09/30/2021 3:30 PM INTERNATIONAL ORGANIZER 15 mg 15 mg, intravenous, Once, On Thu09/30/21 at 1521, For 1 dose, Adult IV push rate: Over 15 seconds. Peds IV push rate: Over 1 minute. 60 mg dose only for IM, not recommended for IV. ketorolac tablet 10 mg (TORADOL) Given 09/30/2021 9:11 AM INTERNATIONAL ORGANIZER 10 mg 10 mg, oral, Once, On Thu09/30/21 at 0841, For 1 dose NaCl 0.9 % bolus 1,000 mL New Bag 09/30/2021 2:29 PM INTERNATIONAL ORGANIZER 1,000 mL 1000 mL/hr 1,000 mL, intravenous, at 1,000 mL/hr, Administer over 1 Hours, Once, On Thu09/30/21 at 1415, For 1 dose NaCl 0.9% infusion 20-500 mL/hr, intravenous, Once as needed, Between Uni ts of Blood Products, Starting on Thu09/30/21 at 1144, For 1 d ose, Infuse at the same rate as the blood infusion until tubing cleared. Nurse may reduce rate to 20 mL/hour or as otherwise directed until next blood infusion arriv es then discontinue when infusion complete. oxyCODONE-acetaminophen 5-325 mg per tablet Given 09/08 9:11 AM INTERNATIONAL ORGANIZER 1 tablet 1 tablet (PERCOCET) 1 tablet, oral, Once, On Thu09/30/21 at 0841, For 1 dose documented in this encounter Active and Recently Administered Medications Times are shown in INTERNATIONAL ORGANIZER. Scheduled Medication Order 09/28/2021 09/29/2021 09/30/2021 acetaminophen tablet 1,000 mg (TYLENOL) (COMPLETED) 1258 (Given - Provider: Lesli Sotomayor R.N.) 1,000 mg, oral, Once, On Thu09/30/21 at 1233, For 1 dose droperidoL injection 1.875 mg (INAPSINE) (COMPLETED) 1258 (Given - Provider: Lesli Sotomayor R.N.) 1.875 mg, intravenous, Once, On Thu09/30/21 at 1233, For 1 dose HYDROmorphone injection 1 mg (DILAUDID) (COMPLETED) 1058 (Given - Provider: Lluvia Bull R.N.) 1 mg, intravenous, Once, On Thu09/30/21 at 1051, For 1 dose HYDROmorphone injection 1 mg (DILAUDID) (COMPLETED) 1115 (Given - Provider: Lesli Sotomayor R.N.) 1 mg, intravenous, Once, On Thu09/30/21 at 1113, For 1 dose ketorolac injection 15 mg (TORADOL) (COMPLETED) 1530 (Given - Provider: Lesli Sotomayor R.N.) 15 mg, intravenous, Once, On Thu09/30/21 at 1521, For 1 dose, Adult IV push rate: Over 15 seconds. Peds IV push rate: Over 1 minute. 60 mg dose only for IM, not recommended for IV. ketorolac tablet 10 mg (TORADOL) (COMPLETED) 0911 (Given - Provider: Lesli Sotomayor R.N.) 10 mg, oral, Once, On Thu09/30/21 at 0841, For 1 dose NaCl 0.9 % bolus 1,000 mL (COMPLETED) 1429 (New Bag - Provider: Lesli Sotomayor R.N.)1529 (Stopped - Provider: Lesli Sotomayor R.N.) 1,000 mL, intravenous, at 1,000 mL/hr, A dminister over 1 Hours, Once, On Thu09/30/21 at 1415, For 1 dose oxyCODONE-acetaminophen 5-325 mg per tablet 1 tablet (PERCOCET) (COMPLETED) 0911 (Given - Provider: Lesli Sotomayor R.N.) 1 tablet, oral, Once, On Thu09/30/21 at 0841, For 1 dose PRN Medication Order 09/28/2021 09/29/2021 09/30/2021 NaCl 0.9% infusion 20-500 mL/hr, intravenous, Once as neede d, Between Units of Blood Products, Starting on Thu09/30/21 at 1144, For 1 dose, Infuse at the same rate as the blood infusion until tubing cleared. Nurse may red uce rate to 20 mL/hour or as otherwise d irected until next blood infusion arrives then discontinue when infusion complete. documented in this encounter Additional Health Concerns Infection Onset Date Last Indicated Resolved Time COVID19 Pending 09/30/2021 09/30/2021 09/30/2021 11:06 AM INTERNATIONAL ORGANIZER Assessment Noted Time PHQ-9 Depression Total Score: 18 02/14/2013 9:53 AM CD T documented as of this encounter Care Teams Buckle Gluer Relationship Specialty Start Date End Date Cintia Cobb M.D. PCP - General 02/19/17 02/20/[id number] [phone] documented as of this encounter
--- OUTSIDE RECORDS SUMMARY | 2022-07-29 10:43 | XMS_ITS | Encounter Summary ---
:1960 Author Organization [facility] Address [address] [place] [address] Care Team Providers Name Role Phone Cintia Cobb M.D. Primary Care Provider [phone] Reason for Visit Physical Therapy (Routine) - Canceled Specialty Diagnoses / Procedures Referred By Contact Refer red To Contact Diagnoses Fracture Femur Lower Multiple Closed Initial Left (HCC) Nathen Burger M.D. [facility] Procedures PT Ongoing treatment [facility] [address] [address] Referral ID Status Reason Start Date Expiration Date Visits V isits Requested Authorized [id number] Canceled 10/22/2021 10/22/2022 40 40 Encounter Details Date Type Department Care Team Description 12/05/2021 Clinical Support Department of Gustavo Burger M.D. [address] [id number] Fracture Femur Rehabilitation Lesli Dias, P.T. [address] [place] [phone] Lower Multiple Services in [place] Closed In itial [place], [place] ([facility]) [address] [place] [phone] Social History Tobacco Use Types Packs/Day Years Used Date Smoking Tobacco: Never Smokeless Tobacco: Never Alcohol Use Standard Drinks/Week Comments No 0 (1 standard drink = 0.6 oz pure alcoho l) Sex Assigned at Date Recorded Not on file documented as of this encounter Progress Notes Lesli Dias P.T. - 12/05/2021 7:30 AM CDT Physical Therapy Outpatient Treatment Note SUBJECTIVE Patient's Name: Laz Luna Referring Provider: Nathen Burger M.D. Visit Diagnosis: 1. Fracture Femur Lower Multiple Closed Initial Left (HCC) Payor: [employer] [facility] / Plan: [employer] HMO / Product Type: Medicaid HMO / No data recorded Epic Visit Count: 13 Patient comments: Patient has no new complaints. He has been returning to work without difficulty. Contact monitoring: PPE used during therapy: Therapist was wearing the following PPE throughout entire session: surgicalmask Patient was wearing a mask during therapy session: yes Additional Staff Present During Session: no OBJECTIVE Pain: intermittent knee pain TREATMENT Treatment today consisted of: Performed??the [employer]Fit Total body ergometer times 10??minutes at a level??3.9??resistance. ??Negotiated a flight of stairs with??bilateral??hand rail??with reciprocal gait pattern.?Patient utilized the handrails for mild upper body support offset the weight of the left lower extremity.?Leg press? ?50# 4 x 10??reps.?Lateral step ups x 10 reps each. Home Exercise Program/Education: Supine Knee Extension Stretch [...] Assessment Clinical Impression: Tolerated treatment session well. Gradually improving strength and function. Functional Goals and Timeframes: PT Goal #1: [...] 12/06/2021 Plan Plan for next session: ROM, strengthening, gait Time Spent with Patient Therapeutic Interventions Gait [...] documented as of this encounter Care Teams Associate Merchant Relationship Specialty Start Date End Date Cintia Cobb M.D. PCP - General 02/19/17 02/20/[id number] [phone] documented as of this encounter"
--- OUTSIDE RECORDS SUMMARY | 2022-07-29 10:43 | XMS_ITS | Encounter Summary ---
:1960 Author Organization [facility] Address [address] [place] [address] Care Team Providers Name Role Phone Cintia Cobb M.D. Primary Care Provider [phone] Reason for Visit Physical Therapy (Routine) - Canceled Specialty Diagnoses / Procedures Referred By Contact Refer red To Contact Diagnoses Fracture Femur Lower Multiple Closed Initial Left (HCC) Nathen Burger M.D. [facility] Procedures PT Ongoing treatment [facility] [address] [address] Referral ID Status Reason Start Date Expiration Date Visits V isits Requested Authorized [id number] Canceled 10/22/2021 10/22/2022 40 40 Encounter Details Date Type Department Care Team Description 11/25/2021 Clinical Support Department of Gustavo Burger M.D. [address] [address] Fracture Femur Rehabilitation Lesli Dias, P.T. [address] [place] [phone] Lower Multiple Services in [place] Closed In itial [place], [place] ([facility]) [address] [place] [phone] Social History Tobacco Use Types Packs/Day Years Used Date Smoking Tobacco: Never Smokeless Tobacco: Never Alcohol Use Standard Drinks/Week Comments No 0 (1 standard drink = 0.6 oz pure alcoho l) Sex Assigned at Date Recorded Not on file documented as of this encounter Progress Notes Lesli Dias P.T. - 11/25/2021 12:30 PM CDT Physical Therapy Outpatient Treatment Note SUBJECTIVE Patient's Name: Laz Luna Referring Provider: Nathen Burger M.D. Visit Diagnosis: 1. Fracture Femur Lower Multiple Closed Initial Left (HCC) Payor: [employer] [place] CARE / Plan: BCBS BLUE PLUS HMO / Product Type: Medicaid HMO / No data recorded Epic Visit Count: 10 Patient comments: Patient has no new complaint. Contact monitoring: PPE used during therapy: Therapist was wearing the following PPE throughout entire session: surgicalmask Patient was wearing a mask during therapy session: yes Additional Staff Present During Session: no OBJECTIVE Pain: decreasing knee pain TREATMENT Treatment today consisted of: Performed the 3CLogic-Flight Steward Total body ergometer times 16??minutes at a level??3??resistance. ??Negotiateda flight of stairs with??bilateral??hand rail??with reciprocal gait pattern. ??Patient utilized the handrails for moderate upper body support offset the weight of the left lower extremity. Leg press??50# 3 x 15??reps.?Standing partial squats x 10 reps, forward and lateral step ups x 10 reps each. Home [...] Clinical Impression: Tolerated treatment session well. Improving ROM and strength. Functional Goals and Timeframes: PT [...] Date: 12/06/2021 Plan Plan for next session: ROM and strengthening. Time Spent with Patient Gait Training (min): 5 min Therapeutic Exercise (min): 25 min Time Calculation Total Timed Units (min): [...] documented as of this encounter Care Teams Management Department Chair Relationship Specialty Start Date End Date Cintia Cobb M.D. PCP - General 02/19/17 02/20/[address] [address] documented as of this encounter
--- OUTSIDE RECORDS SUMMARY | 2022-07-29 10:43 | XMS_ITS | Encounter Summary ---
:1960 Author Organization [facility] Address [address] [place] [address] Care Team Providers Name Role Phone Cintia Cobb M.D. Primary Care Provider [phone] Reason for Visit Physical Therapy (Routine) - Canceled Specialty Diagnoses / Procedures Referred By Contact Refer red To Contact Diagnoses Fracture Femur Lower Multiple Closed Initial Left (HCC) Nathen Burger M.D. [facility] Procedures PT Ongoing treatment [facility] [address] [address] Referral ID Status Reason Start Date Expiration Date Visits V isits Requested Authorized [id number] Canceled 10/22/2021 10/22/2022 40 40 Encounter Details Date Type Department Care Team Description 11/04/2021 Clinical Support Department of Gustavo Burger M.D. [address] [address] Fracture Femur Rehabilitation Lesli Dias, P.T. [address] [place] [phone] Lower Multiple Services in [place] Closed In itial [place], [place] ([facility]) [address] [place] [phone] Social History Tobacco Use Types Packs/Day Years Used Date Smoking Tobacco: Never Smokeless Tobacco: Never Alcohol Use Standard Drinks/Week Comments No 0 (1 standard drink = 0.6 oz pure alcoho l) Sex Assigned at Date Recorded Not on file documented as of this encounter Progress Notes Lesli Dias P.T. - 11/04/2021 10:00 AM CST Physical Therapy Outpatient Treatment Note SUBJECTIVE Patient's Name: Laz Luna Referring Provider: Nathen Burger M.D. Visit Diagnosis: 1. Fracture Femur Lower Multiple Closed Initial Left (HCC) Payor: [employer] [facility] CARE / Plan: [facility] BLUE PLUS HMO / Product Type: Medicaid HMO / No data recorded Epic Visit Count: 4 Patient comments: Patient has no new complaints. Contact monitoring: PPE used during therapy: Therapist was wearing the following PPE throughout entire session: surgicalmask Patient was wearing a mask during therapy session: yes Additional Staff Present During Session: no OBJECTIVE Pain: left knee pain distal patella and joint line deep ache Ortho Exam Left 0-113 degrees of knee ROM. TREATMENT Treatment today consisted of: Patient ambulated to physical therapy 150 ft using a cane. Patient is utilizing a walker to mildly offset heel weight of left lower extremity at times. Patient does demonstrate lack of terminal knee extension in his heel strike but has significantly improved from initial evaluation. Perform the Sci-Fit Total body ergometer times 15 minutes at a level 1 resistance. Negotiated a flight of stairs with bilateral hand rails with reciprocal gait pattern. Patient utilized the handrails for moderate upper body support offset the weight of the left lower extremity. Contact guard assist was applied through gait belt. Seated PROM for knee flexion. Seated LAQ 2 x 10 reps. Prolonged knee extension stretch 3 x 3 0 seconds with light manual over pressure proximal to the knee. Home Supine Heel Slides - 1 x daily [...] x weekly - 3 sets - 10 repsExercise Program/Education: Pt reports good compliance with his HEP. Assessment Clinical Impression: Tolerated treatment session. Improving knee ROM and progressed to a cane for ambulation. Functional Goals and Timeframes: PT Goal #1: [...] Date: 12/06/2021 Plan Plan for next session: progression of ROM, strength, gait and stairs. Time Spent with Patient Gait Training (min): 10 min Therapeutic Exercise (min): 20 min Time Calculation Total Timed Units (min): 30 min Total Treatment Time (min): 30 min [employer] GROUP LEADER documented in this encounter Plan of Treatment Not on filedocumented as of this encounter Visit Diagnoses Diagnosis Fracture Femur Lower Multiple Closed Ini tial Left (HCC) documented in this encounter Additional Health Concerns Assessment Noted Time PHQ-9 Depression Total Score: 18 02/14/2013 9:53 AM CD T documented as of this encounter Care Teams Cash Manager Relationship Specialty Start Date End Date Cintia Cobb M.D. PCP - General 02/19/17 02/20/[address] [place] [phone] documented as of this encounter
--- OUTSIDE RECORDS SUMMARY | 2022-07-29 10:43 | XMS_ITS | Encounter Summary ---
:1960 Author Organization [facility] Address [address] [place] [address] Care Team Providers Name Role Phone Cintia Cobb M.D. Primary Care Provider Encounter Details Date Type Department Care Team Description 08/13/2021 Orders Only [facility] PCP [facility] Priyanka Cobb Mellitus Type OLEG Piper M.D. 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 PCP - General 02/19/17 02/20/22 [address] [facility] [address] [place] [phone] documented as of this encounter
--- OUTSIDE RECORDS SUMMARY | 2022-07-29 10:43 | XMS_ITS | Encounter Summary ---
:1960 Author Organization [facility] Address [address] [place] [address] Care Team Providers Name Role Phone Cintia Cobb M.D. Primary Care Provider [phone] Reason for Visit Reason Comments paperwork Encounter Details Date Type Department Care Team Description 09/24/2021 Clinical Communication Department of [facility] Yady donahue, paperwork Medicine, Jose Daniel Piper M.D. [address] [address] [place], [place] [phone] (Work) [phone] Social History Tobacco Use Types Packs/Day Years Used Date Smoking Tobacco: Never Smokeless Tobacco: Never Alcohol Use Standard Drinks/Week Comments No 0 (1 standard drink = 0.6 oz pure alcoho l) Sex Assigned at Date Recorded Not on file documented as of this encounter Miscellaneous Notes Telephone Encounter - Jena Scanlon - 10/07/2021 9:05 AM CST Pre-Op paperwork discarded due to Pt ongoing medical issues resulting in cancellation of that surgical procedure on 10/07/21 DRAWING MACHINE OPERATOR Telephone Encounter - Caro Harper - 09/24/2021 3:30 PM CST Patient asking to have someone call him regarding paperwork for the Pre-op Appt. Please call him at [phone]. Thanks DRAWING MACHINE OPERATOR documented in this encounter Plan of Treatment Not on filedocumented as of this encounter Visit Diagnoses Not on filedocumented in this encounter Additional Health Concerns Infection Onset Date Last Indicated Resolved Time COVID19 Pending 09/30/2021 09/30/2021 09/30/2021 11:06 AM WIRE DRAWING MACHINE OPERATOR COVID19 Pending 10/03/2021 10/03/2021 10/23/2021 6:10 AM WIRE DRAWING MACHINE OPERATOR Assessment Noted Time PHQ-9 Depression Total Score: 18 02/14/2013 9:53 AM CD T documented as of this encounter Care Teams Strategic Account Director Relationship Specialty Start Date End Date Cintia Cobb M.D. PCP - General 02/19/17 02/20/[address] [place] [phone] documented as of this encounter
--- OUTSIDE RECORDS SUMMARY | 2022-07-29 10:43 | XMS_ITS | Encounter Summary ---
:1960 Author Organization [facility] Address [address] [place] [address] Care Team Providers Name Role Phone Cintia Cobb M.D. Primary Care Provider [phone] Reason for Visit Physical Therapy (Routine) - Canceled Specialty Diagnoses / Procedures Referred By Contact Refer red To Contact Diagnoses Fracture Femur Lower Multiple Closed Initial [facility] ([facility]) Nathen Burger M.D. [facility] Procedures PT Ongoing treatment [facility] [address] [address] Referral ID Status Reason Start Date Expiration Date Visits V isits Requested Authorized [id number] Canceled 10/22/2021 10/22/2022 40 40 Encounter Details Date Type Department Care Team Description 11/15/2021 Clinical Support Department of Gustavo Burger M.D. [address] [address] Fracture Femur Rehabilitation Emelia Acosta, P.TPili Lower Multiple Services in [facility] [place], [place] ([facility]) [address] [place] [phone] Social History Tobacco Use Types Packs/Day Years Used Date Smoking Tobacco: Never Smokeless Tobacco: Never Alcohol Use Standard Drinks/Week Comments No 0 (1 standard drink = 0.6 oz pure alcoho l) Sex Assigned at Date Recorded Not on file documented as of this encounter Progress Notes Emelia Acosta P.T. - 11/15/2021 2:30 PM CST Physical Therapy Outpatient Treatment Note SUBJECTIVE Patient's Name: Laz Cuauhtemoc Luna Referring Provider: Nathen Burger M.D. Visit Diagnosis: 1. Fracture Femur Lower Multiple Closed Initial Left (HCC) Payor: [employer] [place] CARE / Plan: [place] BLUE PLUS HMO / Product Type: Medicaid HMO / No data recorded Epic Visit Count: 7 Patient comments: Pt states he was able to try getting into his new truck this week and the first attempt went well. He had weakness in the second attempt. Otherwise no new concerns. Contact monitoring: PPE used during therapy: Therapist was wearing the following PPE throughout entire session: surgicalmask and eye protection Patient was wearing a mask during therapy session: yes OBJECTIVE Pain: does not report pain at this time AROM right knee not tested this session. TREATMENT Treatment today consisted of: Therapeutic Exercise: -sci-fit bike, L3, x15 minutes, seat 20-19 -standing knee flexion stretch on step -DL press, 30#, 3x15 repetitions Gait Training: -ambulation with loftstrand cane to and from physical therapy dept, 150 ft each, with cueing for upright posture -6 stairs, 5x4 repetitions with single rail and SPC, supervision, step-to pattern with cueing for cane positioning on lower step -side stepping with SPC and SBA, x20 ft each direction Home Exercise Program/Education: Continue Supine Knee Extension [...] Clinical Impression: Pt tolerated session well. He shows good stability with stairs using cane. He was able to continue with leg press at 30#. Pt has some difficulty with side stepping but no overt LOB. Will continue to benefit from PT to regain functional ROM, strength and balance/gait. Pt was 10 minutes later to PT session today. Functional Goals and Timeframes: PT Goal #1: [...] Date: 12/06/2021 Plan Plan for next session: standing balance activities, side stepping Time Spent with Patient Gait Training (min): 13 min Therapeutic Exercise (min): 22 min SHARPENER documented in this encounter Plan of Treatment Not on filedocumented as of this encounter Visit Diagnoses Diagnosis Fracture Femur Lower Multiple Closed Ini tial Left (HCC) documented in this encounter Additional Health Concerns Assessment Noted Time PHQ-9 Depression Total Score: 18 02/14/2013 9:53 AM CD T documented as of this encounter Care Teams Medical Aide Relationship Specialty Start Date End Date Cintia Cobb M.D. PCP - General 02/19/17 02/20/[address] [phone] documented as of this encounter
--- OUTSIDE RECORDS SUMMARY | 2022-07-29 10:43 | XMS_ITS | Encounter Summary ---
:1960 Author Organization [facility] Address [address] [place] [address] Care Team Providers Name Role Phone Cintia Cobb M.D. Primary Care Provider [phone] Reason for Visit Reason Comments Med Refill Encounter Details Date Type Department Care Team Description 09/19/2021 Refill Department of [facility] Angélica Cobb Med Refill Medicine, Jose Daniel Piper M.D. Clinic, in [address] [address] [place], [place] [address] [phone] Social History Tobacco Use Types Packs/Day Years [...] documented as of this encounter Care Teams Flattening Machine Operator Relationship Specialty Start Date End Date Cintia Cobb M.D. PCP - General 02/19/17 02/20/[address] [place] [phone] documented as of this encounter
--- OUTSIDE RECORDS SUMMARY | 2022-07-29 10:43 | XMS_ITS | Encounter Summary ---
:1960 Author Organization [facility] Address [address] [place] [address] Care Team Providers Name Role Phone Cintai Cobb M.D. Primary Care Provider [phone] Reason for Visit Reason Comments ankle wound Wound on right ankle will no t healing 10 days Appointment Request (Routine) - Closed Specialty Diagnoses / Procedures Referred By Contact Refer red To Contact Family Medicine Referral ID Status Reason Start Date Expiration Date Visits Requ ested Visits Authorized [id number] Closed 12/02/2021 12/02/2022 1 1 Encounter Details Date Type Department Care Team Description 12/03/2021 Office Visit Department of [facility] Reed Cobb Lower Leg Open Initial Right (Primary Dx); Medicine, Jose Daniel Piper M.D. Diabetes Mellitus Type 2 Peripheral Neur opathy (HCC) [facility], [address] [address] [place], [place] [phone] (W ork) [address] [phone] Social History Tobacco Use Types Packs/Day Years Used Date Smoking Tobacco: Never Smokeless Tobacco: Never Alcohol Use Standard Drinks/Week Comments No 0 (1 standard drink = 0.6 oz pure alcoho l) Sex Assigned at Date Recorded Not on file documented as of this encounter Last Filed Vital Signs Vital Sign Reading Time Taken Comments Blood Pressure 142/76 12/03/2021 8:25 PM CDT Pulse 77 12/03/2021 6:24 PM CDT Temperature 37.2 ??C (99 ??F) 12/03/2021 6:24 PM CDT Respiratory Rate - - Oxygen Saturation 99% 12/03/2021 6:24 PM CDT Inhaled Oxygen Concentration - - Weight - - Height - - Body Mass Index - - documented in this encounter Progress Notes Cintia Cobb M.D. - 12/03/2021 6:30 PM CDT SUBJECTIVE CHIEF COMPLAINT / REASON FOR VISIT Ed Cuauhtemoc Luna is a 61 y.o. male who presents for evaluation of ankle wound (Wound on right ankle will not healing 10 days ). HISTORY OF PRESENT ILLNESS Ed states that approximately 10 days ago, he bumped his right leg and developed a wound. This wound initially bled a fair amount. Now it has been getting larger. The area around it is tender and there is an odor. His leg also swells as the day goes on. has been trying to clean it every day and keep a bandage on it. She had some leftover Aquacel Ag from a prior wound that she has been using. No fevers. 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 Most recent blood sugar was 100. REVIEW OF SYSTEMS A brief review of [...] tablets 2 (two) times a day. ??? finasteride (PROSCAR) 5 mg tablet Take [...] (ROBAXIN) 500 mg tablet 500 mg. ??? PEDIATRIC MULTIVITAMIN NO.76 (FLINTSTONES COMPLETE ORAL) Take 4 tablets by mouth daily. ??? tamsulosin (FLOMAX) 0.4 mg 24 hr capsule TAKE TWO CAPSULES BY MOUTH (0.8MG) DAILY ??? traZODone (DESYREL) 50 mg tablet Take 1-2 tablets (50-100 mg total) by mouth at bedtime as needed for sleep. ??? omeprazole (PriLOSEC) [address] capsule Take 1 capsule (20 mg total) by mouth every morning before breakfast. Allergies Allergen Reactions ??? Ciprofloxacin Other (see comments) and Swelling Genital swelling ??? Influenza A (H5n1) Virus Vaccine Monoval (18 Yr +) Diarrhea ??? Haemophilus Influenzae GI intolerance Diarrhea OBJECTIVE PHYSICAL EXAMINATION BP 142/76 Pulse 77 Temp 37.2 ??C (Temporal) SpO2 99% There is no height or weight on file to calculate BMI. General: Alert and oriented. No acute distress. Extremities: To the medial distal right lower leg, there is an irregularly shaped wound measuring 5.5 cm x 3.3 cm. Wound base is moist with slough and black eschar in the center that is not easily debrided. Surrounding skin is shiny with a dull purple discoloration. 1+ dorsalis pedis pulse. He has 2+ edema to the right posterior ankle which is tender to palpation. Pictures uploaded into [employer]. ASSESSMENT / PLAN #1 Wound Lower Leg Open Initial Right Discussed my concern related to the eschar in the wound. He does have palpable pulses. We attempted to debride the wound with wound cleanser and a gauze debriding wand, but the central eschar was adherent. Aquacel Ag was placed over the wound which was then wrapped with Kerlix followed by Felix wrap to help control swelling. Recommended the patient follow-up with a vascular digital advertising specialist. We will likely pursue this through the [facility]. Wound care instructions were given to his . #2 Diabetes Mellitus Type 2 Peripheral Neuropathy (HCC) Patient due for labs next month. Blood sugars have been acceptable. Plan was discussed with patient and is [...] documented as of this encounter Care Teams Cone Baker Machine Relationship Specialty Start Date End Date Cintia Cobb M.D. PCP - General 02/19/17 02/20/[address] [place] [phone] documented as of this encounter
--- OUTSIDE RECORDS SUMMARY | 2022-07-29 10:43 | XMS_ITS | Encounter Summary ---
:1960 Author Organization [facility] Address [address] [place] [address] Care Team Providers Name Role Phone Cintia Cobb M.D. Primary Care Provider [phone] Reason for Visit Physical Therapy (Routine) - Canceled Specialty Diagnoses / Procedures Referred By Contact Refer red To Contact Diagnoses Fracture Femur Lower Multiple Closed Initial Left (HCC) Nathen Burger M.D. [facility] Procedures PT Ongoing treatment [facility] [address] [address] Referral ID Status Reason Start Date Expiration Date Visits V isits Requested Authorized [id number] Canceled 10/22/2021 10/22/2022 40 40 Encounter Details Date Type Department Care Team Description 11/07/2021 Clinical Support Department of Gustavo Burger M.D. [address] [address] Fracture Femur Rehabilitation Lesli Dias, P.T. [address] [place] [phone] Lower Multiple Services in [place] Closed In itial [place], [place] ([facility]) [address] [place] [phone] Social History Tobacco Use Types Packs/Day Years Used Date Smoking Tobacco: Never Smokeless Tobacco: Never Alcohol Use Standard Drinks/Week Comments No 0 (1 standard drink = 0.6 oz pure alcoho l) Sex Assigned at Date Recorded Not on file documented as of this encounter Progress Notes Lesli Dias P.T. - 11/07/2021 10:45 AM CST Physical Therapy Outpatient Treatment Note SUBJECTIVE Patient's Name: Laz Luna Referring Provider: Nathen Burger M.D. Visit Diagnosis: 1. Fracture Femur Lower Multiple Closed Initial Left (HCC) Payor: [employer] [facility] CARE / Plan: [facility] BLUE PLUS HMO / Product Type: Medicaid HMO / No data recorded Epic Visit Count: 5 Patient comments: Patient continues to demonstrate improvement. He is tolerating walking long distances. Contact monitoring: PPE used during therapy: Therapist was wearing the following PPE throughout entire session: surgicalmask Patient was wearing a mask during therapy session: yes Additional Staff Present During Session: no OBJECTIVE Pain: controlled, patellar pain noted Ortho Exam AROM right knee 0-115 degrees; left knee 0-110 degrees. Ambulates with a lofstrand cane now demonstrating terminal knee extension at heel strike. Velocity is slow but gait is independent. He does, however, present with increased risk of falls. TREATMENT Treatment today consisted of: Patient ambulated to physical therapy 150 ft using a cane. Patient does demonstrate terminal knee extension in his heel strike today.. Perform the Sci- Fit Total body ergometer times 15??minutes at a level 2 resistance. ??Negotiated a flight of stairs with single hand rail, intermittent touching of thesecond hand, with reciprocal gait pattern ascending the stairs and then one step pattern descending the stairs.. ??Patient utilized the handrails for moderate upper body support offset the weight of the left lower extremity. ??Contact guard assist was applied through gait belt. Seated PROM for knee flexion. Initiated leg press 20# 3 x 15 reps. Home Exercise Program/Education: Supine Knee Extension [...] his HEP. Assessment Clinical Impression: Tolerated session well improving ROM and gait. Will continue to benefit from PTto regain functional ROM, strength and balance/gait. Functional Goals and Timeframes: PT Goal #1: [...] Plan for next session: ROM, strengthening, gait and balance. Time Spent with Patient Gait Training (min): 15 min Therapeutic Exercise (min): 30 min Time Calculation Total Timed Units (min): 45 min Total Treatment Time (min): 45 min GN COORDINATOR documented in this encounter Plan of Treatment Not on filedocumented as of this encounter Visit Diagnoses Diagnosis Fracture Femur Lower Multiple Closed Ini tial Left (HCC) documented in this encounter Additional Health Concerns Assessment Noted Time PHQ-9 Depression Total Score: 18 02/14/2013 9:53 AM CD T documented as of this encounter Care Teams Filling Station Attendant Relationship Specialty Start Date End Date Cintia Cobb M.D. PCP - General 02/19/17 02/20/[address] [phone] documented as of this encounter
--- OUTSIDE RECORDS SUMMARY | 2022-07-29 10:43 | XMS_ITS | Encounter Summary ---
:1960 Author Organization [facility] Address [address] [place] [address] Care Team Providers Name Role Phone Cintia Cobb M.D. Primary Care Provider [phone] Encounter Details Date Type Department Care Team Description 12/03/2021 Ancillary Procedure Department of Family Medicine Social History Tobacco Use Types Packs/Day Years Used Date Smoking Tobacco: Never Smokeless Tobacco: Never Alcohol Use Standard Drinks/Week Comments No 0 (1 standard drink = 0.6 oz pure alcoho l) Sex Assigned at Date Recorded Not on file documented as of this encounter Plan of Treatment Not on filedocumented as of this encounter Procedures Procedure Name Priority Date/Time Associated Diagnosis Comme nts FAMILY MEDICINE Routine 12/03/2021 6:45 PM Result s for this IMAGE EXAM CDT procedure are i n the results section. documented in this encounter Results Leg-Family Medicine Image Exam (12/03/2021 6:45 PM CDT) Specimen (Source) Anatomical Collection Method Collection Time Re ceived Time Location / / Volume Laterality 12/03/2021 6:45 PM CDT Narrative [facility] - 12/03/2021 6:48 PM CDT This order has been created and auto-finalized to support the import of images acquired without order. The clini darnell documentation to support these images can be found on the encounter aftab t produced images. Provider Not In System IMG NON RAD IMAGING PROCEDUR ES Performing Organization Address City/State/ZIP Code Phon e Number [facility] NA documented in this encounter Visit Diagnoses Not on filedocumented in this encounter Additional Health Concerns Assessment Noted Time PHQ-9 Depression Total Score: 18 02/14/2013 9:53 AM CD T documented as of this encounter Care Teams Machine Printer Relationship Specialty Start Date End Date Cintia Cobb M.D. PCP - General 02/19/17 02/20/[id number] [address] documented as of this encounter
--- OUTSIDE RECORDS SUMMARY | 2022-07-29 10:43 | XMS_ITS | Encounter Summary ---
:1960 Author Organization [facility] Address [address] [place] [address] Care Team Providers Name Role Phone Cintia Cobb M.D. Primary Care Provider [phone] Reason for Visit Reason Comments Supplement Question Encounter Details Date Type Department Care Team Description 11/28/2021 Clinical Department of [place] Supplement Que stion Communication Family Medicine, Cintia Copeland M.D. Clinic, in [address] [address] [place], [place] [phone] (Work) [phone] Social History Tobacco Use Types Packs/Day Years Used Date Smoking Tobacco: Never Smokeless Tobacco: Never Alcohol Use Standard Drinks/Week Comments No 0 (1 standard drink = 0.6 oz pure alcoho l) Sex Assigned at Date Recorded Not on file documented as of this encounter Miscellaneous Notes Telephone Encounter - Cintia Cobb M.D. - 11/29/2021 8:40 AM CDT ADDITIONAL EMAIL FROM PATIENT: I forgot to also tell you that it's warm around the area of the wound inwitch is in the ankle area the wound looks black n is pretty sore from bout the top of my chin to the back of the calf my uses wound wash when she cleans it n put neosporem on it along with a large bandage the I have it wrapped with gauze had for bout 2 weeks little more little less don't seam like its getting better but I'mpretty sure its starting to stink even after cleaning it Ed iJm Luna RESPONSE: I would recommend scheduling an appointment so that we can look at the wound and prescribe appropriate treatment. In regards to your supplement question, I do not know anything specifically about Newport Coast XL. You can certainly try it but if no improvement in whatever symptoms you are hoping it will help, I would stoptaking it. Cintia Song MD Telephone Encounter - Xochitl Hackett L.P.N. - 11/28/2021 1:57 PM CDT Ed was here for some PT this afternoon and wanted to ask your opinion, if you knew anything about a supplement called [place] Coast XL. It is to be used for improved joint health. He has been using Osteo Bi Flex and has not seemed to really notice any difference. You can just email him with your response. documented in this encounter Plan of Treatment Not on filedocumented as of this encounter Visit Diagnoses Not on filedocumented in this encounter Additional Health Concerns Assessment Noted Time PHQ-9 Depression Total Score: 18 02/14/2013 9:53 AM CD T documented as of this encounter Care Teams Gear Machine Operator General Relationship Specialty Start Date End Date Cintia Cobb M.D. PCP - General 02/19/17 02/20/[address] [address] documented as of this encounter
--- OUTSIDE RECORDS SUMMARY | 2022-07-29 10:43 | XMS_ITS | Encounter Summary ---
:1960 Author Organization [facility] Address [address] [place] [address] Care Team Providers Name Role Phone Cintia Cobb M.D. Primary Care Provider Reason for Visit Physical Therapy (Routine) - Canceled Specialty Diagnoses / Procedures Referred By Contact Refer red To Contact Diagnoses Fracture Femur Lower Multiple Closed Initial Left (HCC) Nathen Burger M.D. [facility] Procedures PT Ongoing treatment [facility] [address] [address] Referral ID Status Reason Start Date Expiration Date Visits V isits Requested Authorized [id number] Canceled 10/22/2021 10/22/2022 40 40 Encounter Details Date Type Department Care Team Description 11/28/2021 Clinical Support Department of Gustavo Burger M.D. [address] [address] Fracture Femur Rehabilitation Lesli Dias P.T. [address] [place] [phone] Lower Multiple Services in [place] Closed In itial [place], [place] ([facility]) [address] [place] [phone] Social History Tobacco Use Types Packs/Day Years Used Date Smoking Tobacco: Never Smokeless Tobacco: Never Alcohol Use Standard Drinks/Week Comments No 0 (1 standard drink = 0.6 oz pure alcoho l) Sex Assigned at Date Recorded Not on file documented as of this encounter Progress Notes Lesli Dias P.T. - 11/28/2021 1:15 PM CDT Physical Therapy Outpatient Treatment Note SUBJECTIVE Patient's Name: Laz Luna Referring Provider: Nathen Burger M.D. Visit Diagnosis: 1. Fracture Femur Lower Multiple Closed Initial Left (HCC) Payor: [employer] [facility] CARE / Plan: [facility] BLUE PLUS HMO / Product Type: Medicaid HMO / No data recorded Epic Visit Count: 11 Patient comments: Patient returned to the provider and is progressing well. He is to continue with PT for ROM and strengthening. Contact monitoring: PPE used during therapy: Therapist was wearing the following PPE throughout entire session: surgicalmask Patient was wearing a mask during therapy session: yes Additional Staff Present During Session: no OBJECTIVE Pain: left knee pain, not rated on pain scale TREATMENT Treatment today consisted of: Performed the [employer]meet Total body ergometer times 16??minutes at a level??3??resistance. ??Negotiateda flight of stairs with??bilateral??hand rail??with reciprocal gait pattern. ??Patient utilized the handrails for mild upper body support offset the weight of the left lower extremity. Leg press??50# 3x 10??reps.?Standing partial squats x 20 reps, forward and lateral step ups x [...] Impression: Tolerated treatment session well. Gradually improving ROM and strength. Gait slow but steady. Functional Goals and Timeframes: PT Goal #1: [...] Plan Plan for next session: ROM, strengthening, gait. Time Spent with Patient Gait Training (min): 5 min Therapeutic Exercise (min): 35 min Time Calculation Total Timed Units (min): 40 min Total Treatment Time (min): 40 min documented in this encounter Plan of Treatment Not on filedocumented as of this encounter Visit Diagnoses Diagnosis Fracture Femur Lower Multiple Closed Ini tial Left (HCC) documented in this encounter Additional Health Concerns Assessment Noted Time PHQ-9 Depression Total Score: 18 02/14/2013 9:53 AM CD T documented as of this encounter Care Teams Buggy Ladle Tender Relationship Specialty Start Date End Date Cintia Cobb M.D. PCP - General 02/19/17 02/20/[address] [place] [phone] documented as of this encounter
--- OUTSIDE RECORDS SUMMARY | 2022-07-29 10:43 | XMS_ITS | Encounter Summary ---
:1960 Author Organization [facility] Address [address] [place] [address] Care Team Providers Name Role Phone Cintia Cobb M.D. Primary Care Provider [phone] Reason for Visit Physical Therapy (Routine) - Canceled Specialty Diagnoses / Procedures Referred By Contact Refer red To Contact Diagnoses Fracture Femur Lower Multiple Closed Initial Left (HCC) Nathen Burger M.D. [facility] Procedures PT Ongoing treatment [facility] [address] [address] Referral ID Status Reason Start Date Expiration Date Visits V isits Requested Authorized [id number] Canceled 10/22/2021 10/22/2022 40 40 Encounter Details Date Type Department Care Team Description 11/01/2021 Clinical Support Department of Gustavo Burger M.D. [address] [address] Fracture Femur Rehabilitation Lesli Dias, P.T. [address] [place] [phone] Lower Multiple Services in [place] Closed In itial [place], [place] ([facility]) [address] [place] [phone] Social History Tobacco Use Types Packs/Day Years Used Date Smoking Tobacco: Never Smokeless Tobacco: Never Alcohol Use Standard Drinks/Week Comments No 0 (1 standard drink = 0.6 oz pure alcoho l) Sex Assigned at Date Recorded Not on file documented as of this encounter Progress Notes Lesli Dias P.T. - 11/01/2021 2:00 PM CST Physical Therapy Outpatient Treatment Note SUBJECTIVE Patient's Name: Laz Luna Referring Provider: Nathen Burger M.D. Visit Diagnosis: 1. Fracture Femur Lower Multiple Closed Initial Left (HCC) Payor: [employer] [facility] CARE / Plan: [facility] BLUE [facility] HMO / Product Type: Medicaid HMO / No data recorded Epic Visit Count: 3 Patient comments: Patient is progressing well. He was able to walk in from the parking lot and back to PT with use of his walker. Previously he had been using a wheelchair. Contact monitoring: PPE used during therapy: Therapist was wearing the following PPE throughout entire session: surgicalmask Patient was wearing a mask during therapy session: yes Additional Staff Present During Session: no OBJECTIVE Pain: Left knee and hip pain reported. Ortho Exam Left 0-105 degrees of knee ROM. TREATMENT Treatment today consisted of: Patient ambulated to physical therapy 150 ft using a front wheel walker. Patient is utilizing a walker to mildly offset heel weight of left lower extremity at times. Patient does demonstrate lack of terminal knee extension in his heel strike but has significantly improvedfrom initial evaluation. Perform the Sci-Fit Total body ergometer times 15 minutes at a level 1 resistance. Negotiated a flight of stairs with bilateral hand rails with reciprocal gait pattern. Patient utilized the handrails for moderate upper body support offset the weight of the left lower extremity. Contact guard assist was applied through gait belt. Verbal cuing was provided to minimize circumduction of the left lower extremity when ascending the stairs. Patient was able to correct immediately with cuing. Performed seated knee flexion with prolonged and range stretching. Patient was able to achieve 105?? of knee flexion. Performed prolonged knee extension stretches 2 times 60 seconds. Patient ambulated an additional 75 ft with front wheel walker demonstrating improved knee extension during heel strike upon completionof her session today. Home Exercise Program/Education: Supine Heel Slides - [...] Patient tolerated treatment session well. Patient is making significant gains with range of motion today. Patient is also demonstrating improvements with the distance he is able towalk as well as his ability to negotiate stairs. Functional Goals and Timeframes: PT Goal #1: [...] Plan for next session: Range of motion, stretching, strengthening may trial use of a cane next week.Will also continue work on the stairs. Time Spent with Patient Gait Training (min): 15 min Therapeutic Exercise (min): 25 min T WORKER documented in this encounter Plan of Treatment Not on filedocumented as of this encounter Visit Diagnoses Diagnosis Fracture Femur Lower Multiple Closed Ini tial Left (HCC) documented in this encounter Additional Health Concerns Assessment Noted Time PHQ-9 Depression Total Score: 18 02/14/2013 9:53 AM CD T documented as of this encounter Care Teams Objects Conservator Relationship Specialty Start Date End Date Cintia Cobb M.D. PCP - General 02/19/17 02/20/[address] [phone] documented as of this encounter
--- OUTSIDE RECORDS SUMMARY | 2022-07-29 10:43 | XMS_ITS | Encounter Summary ---
:1960 Author Organization [facility] Address [address] [place] [address] Care Team Providers Name Role Phone Cintia Cobb M.D. Primary Care Provider [phone] Reason for Visit Physical Therapy (Routine) - Canceled Specialty Diagnoses / Procedures Referred By Contact Refer red To Contact Diagnoses Fracture Femur Lower Multiple Closed Initial Left (HCC) Nathen Burger M.D. [facility] Procedures PT Ongoing treatment [facility] [address] [address] Referral ID Status Reason Start Date Expiration Date Visits V isits Requested Authorized [id number] Canceled 10/22/2021 10/22/2022 40 40 Encounter Details Date Type Department Care Team Description 11/21/2021 Clinical Support Department of Gustavo Burger M.D. [address] [address] Fracture Femur Rehabilitation Lesli Dias, P.T. [address] [place] [phone] Lower Multiple Services in [place] Closed In itial [place], [place] ([facility]) [address] [place] [phone] Social History Tobacco Use Types Packs/Day Years Used Date Smoking Tobacco: Never Smokeless Tobacco: Never Alcohol Use Standard Drinks/Week Comments No 0 (1 standard drink = 0.6 oz pure alcoho l) Sex Assigned at Date Recorded Not on file documented as of this encounter Progress Notes Lesli Dias P.T. - 11/21/2021 10:45 AM CDT Physical Therapy Outpatient Treatment Note SUBJECTIVE Patient's Name: Laz Luna Referring Provider: Nathen Burger M.D. Visit Diagnosis: 1. Fracture Femur Lower Multiple Closed Initial Left (HCC) Payor: [employer] [facility] CARE / Plan: [facility] BLUE PLUS HMO / Product Type: Medicaid HMO / No data recorded Epic Visit Count: 9 Patient comments: Patient twisted his knee yesterday so it is sore today. The tubigrip did help withswelling. Contact monitoring: PPE used during therapy: Therapist was wearing the following PPE throughout entire session: surgicalmask Patient was wearing a mask during therapy session: yes Additional Staff Present During Session: no OBJECTIVE Pain: knee pain TREATMENT Treatment today consisted of: Patient ambulated to physical therapy 150 ft using a??cane. ??Patient does demonstrate terminal kneeextension in his heel strike today. Patient is reaching for the blackmon for extra support after twisting his knee yesterday. Patient's gait is slower and more antalgic today. ??Perform the Sci-Fit Total body ergometer times 16??minutes at a level??3??resistance. ??Negotiated a flight of stairs with??bilateral??hand rail??with reciprocal gait pattern ascending the stairs and then one step pattern descending the stairs.. ??Patient utilized the handrails for moderate upper body support offset the weight of the left lower extremity. ??Contact guard assist was applied through gait belt.?Leg press 30# 3x 10 reps.?? Home Exercise Program/Education: Supine Knee Extension Stretch [...] Clinical Impression: Tolerated treatment session well. Patient did have more soreness today after twisting knee yesterday. Functional Goals and Timeframes: PT Goal #1: [...] as of this encounter Care Teams Food Service Order Clerk Relationship Specialty Start Date End Date Cintia Cobb M.D. PCP - General 02/19/17 02/20/[address] [place] [phone] documented as of this encounter
--- OUTSIDE RECORDS SUMMARY | 2022-07-29 10:43 | XMS_ITS | Encounter Summary ---
:1960 Author Organization [facility] Address [address] [place] [address] Care Team Providers Name Role Phone Cintia Cobb M.D. Primary Care Provider [phone] Reason for Visit Reason Comments Med Refill Encounter Details Date Type Department Care Team Description 11/18/2021 Refill Department of [facility] Angélica Cobb Med Refill Medicine, Jose Daniel Piper M.D. Clinic, in [address] [phone] [place], [place] [address] [phone] Social History Tobacco Use Types Packs/Day Years [...] documented as of this encounter Care Teams Ward Helper Relationship Specialty Start Date End Date Cintia Cobb M.D. PCP - General 02/19/17 02/20/[address] [place] [phone] documented as of this encounter
--- OUTSIDE RECORDS SUMMARY | 2022-07-29 10:43 | XMS_ITS | Encounter Summary ---
:1960 Author Organization [facility] Address [address] [place] [address] Care Team Providers Name Role Phone Cintia Cobb M.D. Primary Care Provider [phone] Reason for Visit Reason Onset Date Comments Testing For Upper Respiratory Virus Symptoms 10/03/2021 Encounter Details Date Type Department Care Team Description 10/03/2021 External Outreach Department of [facility] Nicky Franco Contact With And Medicine, [place] [facility] Padilla (Suspected) Exposure Clinic, in [address] To COVID-19 (Primary [place], [place] Dx) [address] [place] [phone] [place], [place] [phone] (Work) [phone] Social History Tobacco Use Types Packs/Day Years Used Date Smoking Tobacco: Never Smokeless Tobacco: Never Alcohol Use Standard Drinks/Week Comments No 0 (1 standard drink = 0.6 oz pure alcoho l) Sex Assigned at Date Recorded Not on file documented as of this encounter Progress Notes Lj Bassett - 10/03/2021 8:34 AM CST Encounter created for symptomatic infectious disease screening with possible COVID, Influenza, RSV, and/or Group A Strep testing. ARY CUSTOMER SERVICE CLERK documented in this encounter Plan of Treatment Not on filedocumented as of this encounter Visit Diagnoses Diagnosis Contact With And (Suspected) Exposure To COVID-19 - Primary documented in this encounter Additional Health Concerns Infection Onset Date Last Indicated Resolved Time COVID19 Pending 10/03/2021 10/03/2021 10/23/2021 6:10 AM LIBRARY CUSTOMER SERVICE CLERK Assessment Noted Time PHQ-9 Depression Total Score: 18 02/14/2013 9:53 AM CD T documented as of this encounter Care Teams Probation Manager Relationship Specialty Start Date End Date Cintia Cobb M.D. PCP - General 02/19/17 02/20/[address] [place] [phone] documented as of this encounter
--- OUTSIDE RECORDS SUMMARY | 2022-07-29 10:43 | XMS_ITS | Encounter Summary ---
:[address] [facility] Address [address] [place] [address] Care Team Providers Name Role Phone Cintia Cobb M.D. Primary Care Provider [phone] Reason for Visit Physical Therapy (Routine) - Canceled Specialty Diagnoses / Procedures Referred By Contact Refer red To Contact Diagnoses Fracture Femur Lower Multiple Closed Initial [facility] ([facility]) Nathen Burger M.D. [facility] Procedures PT Ongoing treatment [facility] [address] [address] Referral ID Status Reason Start Date Expiration Date Visits V isits Requested Authorized [id number] Canceled 10/22/2021 10/22/2022 40 40 Encounter Details Date Type Department Care Team Description 11/13/2021 Clinical Support Department of Gustavo Burger M.D. [address] [address] Fracture Femur Rehabilitation Emelia Acosta, P.TPili Lower Multiple Services in [facility] [place], [place] ([facility]) [address] [place] [phone] Social History Tobacco Use Types Packs/Day Years Used Date Smoking Tobacco: Never Smokeless Tobacco: Never Alcohol Use Standard Drinks/Week Comments No 0 (1 standard drink = 0.6 oz pure alcoho l) Sex Assigned at Date Recorded Not on file documented as of this encounter Progress Notes Emelia Acosta P.T. - 11/13/2021 11:30 AM CST Physical Therapy Outpatient Treatment Note SUBJECTIVE Patient's Name: Laz Cuauhtemoc Luna Referring Provider: Nathen Burger M.D. Visit Diagnosis: 1. Fracture Femur Lower Multiple Closed Initial Left (HCC) Payor: [email or web address] [place] CARE / Plan: [facility] [employer] HMO / Product Type: Medicaid HMO / No data recorded Epic Visit Count: 6 Patient comments: Pt continues to note progress in functional mobility. He does note that he has attempted small ambulation distances without cane indoors and states it goes okay but benefits greatly with use of cane. Pt reports trialing 13 stairs to basement yesterday and it went well with his standing in front of him and use of cane and railing. Contact monitoring: PPE used during therapy: Therapist was wearing the following PPE throughout entire session: surgicalmask and eye protection Patient was wearing a mask during therapy session: yes OBJECTIVE Pain: does not report pain at this time AROM right knee 0-120 degrees; left knee 0-111 degrees. Ambulates with a lofstrand cane continuing to demonstrate terminal knee extension at heel strike. Velocity continues to be slow but gait is independent. TREATMENT Treatment today consisted of: Therapeutic Exercise: -sci-fit bike, L3.1 x20 minutes -seated L knee PROM on plinth -seated LAQ x10 repetitions on L -DL press, 30#, 3x15 repetitions Gait Training: -ambulation with loftstrand cane to and from physical therapy dept, 150 ft each, with cueing for upright posture -6 stairs, 5x4 repetitions with bilateral rails for endurance, supervision, reciprocal stepping pattern Home Exercise Program/Education: Continue Supine Knee Extension [...] Clinical Impression: Pt tolerated session well. He is demonstrating improved confidence in ambulation and stair negotiation. Pt desired longer time on sci- fit bike for endurance as LLE did not bother him on this. Pt able to tolerate overpressure with knee PROM and measurement. Able to progress resistance and deep knee flexion with leg press without increase in pain. Will continue to benefit from PT to regain functional ROM, strength and balance/gait. Functional [...] min Total Treatment Time (min): 45 min RWRITING SPECIALIST documented in this encounter Plan of Treatment Not on filedocumented as of this encounter Visit Diagnoses Diagnosis Fracture Femur Lower Multiple Closed Ini tial Left (HCC) documented in this encounter Additional Health Concerns Assessment Noted Time PHQ-9 Depression Total Score: 18 02/14/2013 9:53 AM CD T documented as of this encounter Care Teams Pizza Chef Relationship Specialty Start Date End Date Cintia Cobb M.D. PCP - General 02/19/17 02/20/[address] [phone] documented as of this encounter
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
--- OUTSIDE RECORDS SUMMARY | 2022-07-29 10:43 | XMS_ITS | Encounter Summary ---
:1960 Author Organization [facility] Address [address] [place] [address] Care Team Providers Name Role Phone Cintia Cobb M.D. Primary Care Provider [phone] Reason for Visit Reason Comments ED visit Encounter Details Date Type Department Care Team Description 09/30/2021 Clinical Communication Department of [facility] Duncan donahue, ED visit Medicine, Jose Daniel Piper M.D. [facility], [address] [address] [place], [place] [phone] [address] (Work) [phone] Social History Tobacco Use Types Packs/Day Years Used Date Smoking Tobacco: Never Smokeless Tobacco: Never Alcohol Use Standard Drinks/Week Comments No 0 (1 standard drink = 0.6 oz pure alcoho l) Sex Assigned at Date Recorded Not on file documented as of this encounter Miscellaneous Notes Telephone Encounter - Yissel Brady I - 09/30/2021 9:49 AM CST Reason for Communication: ED visit Current Can Nursing/Provider leave a detailed message?: yes Did the patient refuse triage through Nurse line? (for symptom based concerns): na Action Needed: Patient cancelled appointment with Dr Song on 10/01/21 due to currently being in the [place] ED with a broken leg. Patient wanted Dr Song to be aware. Name of Medication (if relevant): na Please send all scheduling replies to scheduling pool. WEIGHER documented in this encounter Plan of Treatment Not on filedocumented as of this encounter Visit Diagnoses Not on filedocumented in this encounter Additional Health Concerns Infection Onset Date Last Indicated Resolved Time COVID19 Pending 09/30/2021 09/30/2021 09/30/2021 11:06 AM MAIL WEIGHER COVID19 Pending 10/03/2021 10/03/2021 10/23/2021 6:10 AM MAIL WEIGHER Assessment Noted Time PHQ-9 Depression Total Score: 18 02/14/2013 9:53 AM CD T documented as of this encounter Care Teams Online Marketing Director Relationship Specialty Start Date End Date Cintia Cobb M.D. PCP - General 02/19/17 02/20/[address] [place] [phone] documented as of this encounter
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
--- OUTSIDE RECORDS SUMMARY | 2022-07-29 10:44 | XMS_ITS | Encounter Summary ---
:1960 Author Organization [facility] Address [address] [place] [address] Care Team Providers Name Role Phone Cintia Cobb M.D. Primary Care Provider [phone] Reason for Visit Reason Comments Appointment Encounter Details Date Type Department Care Team Description 04/15/2021 Clinical Communication Department of [facility], Appointment Medicine, Jose Daniel Piper M.D. [address] [address] [place], [place] [phone] (Work) [phone] Social History Tobacco Use Types Packs/Day Years Used Date Smoking Tobacco: Never Smokeless Tobacco: Never Alcohol Use Standard Drinks/Week Comments No 0 (1 standard drink = 0.6 oz pure alcoho l) Sex Assigned at Date Recorded Not on file documented as of this encounter Miscellaneous Notes Telephone Encounter - Keyla Evangelista - 04/24/2021 6:20 PM CDT Patient added to schedule. Telephone Encounter - Cintia Cobb M.D. - 04/18/2021 2:59 PM CDT I am willing to see patient with his on May 21 at 6:30 pm if they show up at the appropriate check in time which is 6:10 p.m.. If they show up late which they typically do, I will only be able to see 1 of them. Telephone Encounter - Lesli Guo - 04/15/2021 1:07 PM CDT SYMPTOM ADVICE What phone number can I reach you at? [phone] ('s number) New Symptom and duration of symptom: Patient has gained 20# after being on Gabapentin. He discontinued use today, and would like to know if he could be seen with his at her next appt. (05/21/2021).Call if this is possible, and to discuss weight gain and going off his medication. Additional information: Patient has an appointment on 07/02/2021 - first available on a Thursday after 6:00 PM. Routing: - transfer to law librarian line if new or worsening symptoms - team paper winder for continued symptoms - MATERIAL PROCESSOR pool for chronic issue or medication refill/question documented in this encounter Plan of Treatment Not on filedocumented as of this encounter Visit Diagnoses Not on filedocumented in this encounter Additional Health Concerns Assessment Noted Time PHQ-9 Depression Total Score: 18 02/14/2013 9:53 AM CD T documented as of this encounter Care Teams Automobile Mechanic Radiator Relationship Specialty Start Date End Date Cintia Cobb M.D. PCP - General 02/19/17 02/20/[address] [phone] documented as of this encounter
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
--- OUTSIDE RECORDS SUMMARY | 2022-07-29 10:44 | XMS_ITS | Encounter Summary ---
:1960 Author Organization [facility] Address [address] [place] [address] Care Team Providers Name Role Phone Cintia Cobb M.D. Primary Care Provider [phone] Reason for Visit Reason Comments FYI Encounter Details Date Type Department Care Team Description 04/15/2021 Clinical Communication [facility], Jose Daniel Piper M.D. [address] [address] [place], [place] [phone] (Work) [phone] Social History Tobacco Use Types Packs/Day Years Used Date Smoking Tobacco: Never Smokeless Tobacco: Never Alcohol Use Standard Drinks/Week Comments No 0 (1 standard drink = 0.6 oz pure alcoho l) Sex Assigned at Date Recorded Not on file documented as of this encounter Miscellaneous Notes Telephone Encounter - Cintia Cobb M.D. - 04/16/2021 8:21 PM CDT Message sent to patient's email. Telephone Encounter - Fernanda Buckner R.N. - 04/15/2021 10:24 AM CDT Letter scanned to patient's email: Mr. Luna, We have attempted to contact you multiple times over the past weeks and are unable to leave a message or reach you. It has appeared you have blocked [facility] from calling your phone number. Dr. Song will be informed that you have stopped taking your gabapentin, however, on 04/05/21, youwere advised by the RN to follow up with Dr. Song or another provider as soon as possible or withing two weeks. On 03/02, we were able to leave a detailed message from Dr. Song on your voicemail: ???Weight gain can be a rare side effect of gabapentin. Constipation is not a typical symptom but is possible. It is up to you if you would like to continue this medication. If you decides to stop it, you should WEAN off (slowly decrease the gabapentin every few days until you are off of the medication). If you decide to continue it, you should take a medication such as MiraLax to help with your bowels. We are unfortunately, not able to continue communication with you via your personal email. Please call us at [phone] to utilize your [facility] Portal or enable phone calls/ voicemails to you from [facility] so we can communicate effectively with you. Thank you Telephone Encounter - Shanice Ferguson - 04/15/2021 8:40 AM CDT Reason for Communication: gabapentin Current - pt blocked the phone number for [facility] so he cannot get a call back. Pt asked that you email him at [email or web address]. Can Nursing/Provider leave a detailed message?: no Did the patient refuse triage through Nurse line? (for symptom based concerns): n/a Action Needed: Pt called in and wanted to let dr. Duncan Copeland know that he has stopped taking his gabapentin due to weight gain. Please email pt back to discuss. Thank you! Name of Medication (if relevant): Gabapentin Please send all scheduling replies to scheduling pool. documented in this encounter Plan of Treatment Not on filedocumented as of this encounter Visit Diagnoses Not on filedocumented in this encounter Additional Health Concerns Assessment Noted Time PHQ-9 Depression Total Score: 18 02/14/2013 9:53 AM CD T documented as of this encounter Care Teams Babysitter Relationship Specialty Start Date End Date Cintia Cobb M.D. PCP - General 02/19/17 02/20/[id number] [place] [phone] documented as of this encounter
--- OUTSIDE RECORDS SUMMARY | 2022-07-29 10:44 | XMS_ITS | Encounter Summary ---
:1960 Author Organization [facility] Address [address] [place] [address] Care Team Providers Name Role Phone Cintia Cobb M.D. Primary Care Provider [phone] Reason for Visit Reason Comments Triage Encounter Details Date Type Department Care Team Description 07/25/2021 Nurse Triage Department of [facility] Drake Gilbert RAugustine Triage Medicine, [place] [address] [facility], in [facility] [address] [place] [address] [place] [phone] Social History Tobacco Use Types Packs/Day Years Used Date Smoking Tobacco: Never Smokeless Tobacco: Never Alcohol Use Standard Drinks/Week Comments No 0 (1 standard drink = 0.6 oz pure alcoho l) Sex Assigned at Date Recorded Not on file documented as of this encounter Miscellaneous Notes Telephone Encounter - Zeina Gilbert R.N. - 07/25/2021 6:58 AM CST Chief Complaint / Reason for Call Patient is a 61 y.o. male calling regarding Triage. 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 Yesterday the wind blew his door shut and struck this same area, aggravating it further. Area appears slightly swollen. Hurts to take a deep breath and getting in and out of his truck is quite painful. He is able to fully breathe and denies any other symptoms or injuries. Present for: 3 days Home cares tried: He is currently on arthritis medication and Tylenol which have not helped. Calling to request: Wondering if he can wrap the area. The recommended disposition is See a health care provider within 24 hours. Recommended that he consider evaluation, icing area and did not endorse wrapping as an option for his chest region. He is going to wrap the area, despite cautions that were shared. States he is only going to wrap it for 12 hours a day, I'll take it off when I get home. Denies having an evaluation at this time. Care Advice Patient/Caregiver understands and will follow care advice?: Yes, able to teach back SEE PCP WITHIN 24 HOURS: * IF OFFICE WILL BE OPEN: You need to be examined within the next 24 hours. Call your doctor (or ASSOCIATE PROFESSOR OF ENGINEERING/PA) when the office opens and make an appointment. * IF OFFICE WILL BE CLOSED: You need to be seen within the next 24 hours. A clinic or an urgent carecenter is often a good source of care if your doctor's office is closed or you can't get an appointment. * IF PATIENT HAS NO PCP: Refer patient to a clinic or urgent care center. Also try to help caller find a PCP for future care. NOTE TO TRIAGER: * Use nurse judgment to select the most appropriate source of care. * Consider both the urgency of the patient's symptoms AND what resources may be needed to evaluate and manage the patient. USE A COLD PACK FOR PAIN, SWELLING, OR BRUISING: * Put a cold pack or an ice bag (wrapped in a moist towel) on the area for 20 minutes. * Repeat in 1 hour, then every 4 hours while awake. * Continue this for the first 48 hours (2 days) after an injury. * This will help decrease pain, swelling, and bruising. * Caution: avoid frostbite. USE HEAT ON AREA AFTER 48 HOURS: * If pain, swelling, or bruising last more than 48 hours (2 days), then use heat on the area. * Use a heat pack, heating pad, or warm wet washcloth. * Do this for 10 minutes three times a day. * This will help increase blood flow and improve healing. * Caution: burn. Do not sleep on a heating pad. CALL BACK IF: * You become worse. CARE ADVICE given per Chest Injury (Adult) guideline. PAIN MEDICINES: * For pain relief, you can take either acetaminophen, ibuprofen, or naproxen. * They are dads-boq-ihhaqxz (OTC) pain drugs. You can buy them at the drugstore. * ACETAMINOPHEN - REGULAR STRENGTH TYLENOL: Take 650 mg (two 325 mg pills) by mouth every 4 to 6 hours as needed. Each Regular Strength Tylenol pill has 325 mg of acetaminophen. The most you should take each day is 3,250 mg (10 pills a day). * ACETAMINOPHEN - EXTRA STRENGTH TYLENOL: Take 1,000 mg (two 500 mg pills) every 8 hours as needed. Each Extra Strength Tylenol pill has 500 mg of acetaminophen. The most you should take each day is 3,000 mg (6 pills a day). * IBUPROFEN (E.G., MOTRIN, ADVIL): Take 400 mg (two 200 mg pills) by mouth every 6 hours. The most you should take each day is 1,200 mg (six 200 mg pills), unless your doctor has told you to take more. * NAPROXEN (E.G., ALEVE): Take 220 mg (one 220 mg pill) by mouth every 8 to 12 hours as needed. You may take 440 mg (two 220 mg pills) for your first dose. The most you should take each day is 660 mg (three 220 mg pills a day), unless your doctor has told you to take more. Reason for Disposition ? ? [1] High-risk adult (e.g., age > 60 years, osteoporosis, chronic steroid use) AND [2] still hurts Protocols used: CHEST [id number]-WF T PLEATER documented in this encounter Plan of Treatment Not on filedocumented as of this encounter Visit Diagnoses Not on filedocumented in this encounter Additional Health Concerns Assessment Noted Time PHQ-9 Depression Total Score: 18 02/14/2013 9:53 AM CD T documented as of this encounter Care Teams Junior Mechanical Engineer Relationship Specialty Start Date End Date Cintia Cobb M.D. PCP - General 02/19/17 02/20/[id number] [phone] documented as of this encounter
--- OUTSIDE RECORDS SUMMARY | 2022-07-29 10:44 | XMS_ITS | Encounter Summary ---
:1960 Author Organization [facility] Address [address] [place] [address] Care Team Providers Name Role Phone Cintia Cobb M.D. Primary Care Provider [phone] Reason for Visit Reason Comments Follow-up Medication request Encounter Details Date Type Department Care Team Description 01/30/2021 Clinical Communication Department of [facility] Follow-up Medicine in Forest Motta R.N. ([place], [place] [phone] request) [address] [facility] (Work) [place] [address] Social History Tobacco Use Types Packs/Day Years Used Date Smoking Tobacco: Never Smokeless Tobacco: Never Alcohol Use Standard Drinks/Week Comments No 0 (1 standard drink = 0.6 oz pure alcoho l) Sex Assigned at Date Recorded Not on file documented as of this encounter Miscellaneous Notes Telephone Encounter - Estrella Parra R.N. - 02/05/2021 11:16 AM CDT Patient contacted clinic and was given recommendations. Patient states his PCP is going to want him to get medications from the [facility]. Patient goes on to state I guess I will just keep falling. Again recommended patient be evaluated by PCP due to frequent falls. Patient states I don't got timeto go in, what part of this are you not understanding. Explained to patient due to his frequent falls the best recommendation we have is to be evaluated for what could be causing theses falls. Patientstates maybe next time I will fall in front of a truck and we won't have to worry about this. Again advised patient to be seen, patient ended phone call. Telephone Encounter - Estrella Parra R.N. - 01/30/2021 9:11 AM CDT Patient calls requesting to speak with someone from Dr. Spencer office, explained to patient the speaker was one of Dr. Gonzalez's nurses. Prior to giving his name and he states he has a english friend in [facility] with similar back problems that was going to have an epidural but instead the doctorput him on a medication and he would like something similar. Asked the patient for his name and ,patient gave name and followed by stating what is your . Explained to the patient that in order to open his chart I need to find him in the system. Patient verbalizes frustration about being asked and states he is the only Ed Luna and he's told us that before. Once chart was pulled up asked patient what medication it was that he was looking for. Patient states I have told you 10 times Ihave a wet back friend in the [facility] with similar back problems who was given a nerve medication. Patient states that he has already received an ERIN at an outside facility because Dr. Spencer would not do it the day the patient was seen in clinic, again corrected patient that it is Dr. Gonzalez. Patient states he was shoveling and felt pain in the back and down the legs into th knee. Patient states thathis knees have been buckling and he almost fell yesterday. Explained to patient I could discuss his request with Dr. Gonzalez and would call back once I heard from Dr. Gonzalez. Patient states he has our phone number blocked because we have a generic number and he doesn't have VM. Patient states he got sick of returning calls to people he didn't know. Explained to the patient he should call back for recommendations if we are unable to reach him. Patient states he does not have time to call us back and we can figure it out and call him back, then hung up the phone. Discussed with Dr. Gonzalez who states the patient will need to reach out to PCP for medication recommendations. Will await return phone call from patient. documented in this encounter Plan of Treatment Not on filedocumented as of this encounter Visit Diagnoses Not on filedocumented in this encounter Additional Health Concerns Assessment Noted Time PHQ-9 Depression Total Score: 18 02/14/2013 9:53 AM CD T documented as of this encounter Care Teams Automation Engineering Manager Relationship Specialty Start Date End Date Cintia Cobb M.D. PCP - General 02/19/17 02/20/[address] [place] [phone] documented as of this encounter
--- OUTSIDE RECORDS SUMMARY | 2022-07-29 10:44 | XMS_ITS | Encounter Summary ---
:1960 Author Organization [facility] Address [address] [place] [address] Care Team Providers Name Role Phone Cintia Cobb M.D. Primary Care Provider [phone] Reason for Visit Reason Comments Follow-up Encounter Details Date Type Department Care Team Description 03/12/2021 Clinical Communication [facility] Follow-up Medicine, Jose Daniel Piper M.D. [facility], [address] [address] [place], [place] [phone] (Work) [phone] Social History Tobacco Use Types Packs/Day Years Used Date Smoking Tobacco: Never Smokeless Tobacco: Never Alcohol Use Standard Drinks/Week Comments No 0 (1 standard drink = 0.6 oz pure alcoho l) Sex Assigned at Date Recorded Not on file documented as of this encounter Miscellaneous Notes Telephone Encounter - Jackie Baker, L.P.N. - 03/22/2021 4:32 PM CDT Attempted to contact patient, no answer, left generic VM. Telephone Encounter - Estrella Haji L.P.N. - 03/21/2021 10:15 AM CDT Left generic message requesting call back. Patient also has another communication from 03/18/2021 tameka relayed. Telephone Encounter - Estrella Haji L.P.N. - 03/20/2021 3:58 PM CDT Left generic message requesting call back to the clinic. Telephone Encounter - Cintia Cobb M.D. - 03/20/2021 3:40 PM CDT I advise patient to avoid watching the news if he finds it upsetting. There would not be any other specific treatment outside of Tylenol for a headache. Cintia Segura Telephone Encounter - Preethi Wagner R.N. - 03/12/2021 9:31 AM CDT Information Discussed Patient called to report to provider that everytime he hears sleepy creepy pedifile slow Ra or Kelin speak he becomes physically ill with nausea, bad stomach cramps and terrible migraine headaches. He notes this never happened when I listened to Trump. Patient wanted to see if provider had any further advise. Advised patient that PCP is out of the office but I can send the message for her to look at next week, which he was agreeable to. Also advised that if this only occurs when watching themon the TV, he should avoid the TV. PLAN Disposition/Recommendation: notified provider and awaiting recommendations Information/Education: patient/caller able to teach back Caller agreeable to plan of care: yes The following references were used: nursing clinical judgement documented in this encounter Plan of Treatment Not on filedocumented as of this encounter Visit Diagnoses Not on filedocumented in this encounter Additional Health Concerns Assessment Noted Time PHQ-9 Depression Total Score: 18 02/14/2013 9:53 AM CD T documented as of this encounter Care Teams Professor Of Medicine Relationship Specialty Start Date End Date Cintia Cobb M.D. PCP - General 02/19/17 02/20/[address] [place] [phone] documented as of this encounter
--- OUTSIDE RECORDS SUMMARY | 2022-07-29 10:44 | XMS_ITS | Encounter Summary ---
:1960 Author Organization [facility] Address [address] [place] [address] Care Team Providers Name Role Phone Cintia Cobb M.D. Primary Care Provider [phone] Encounter Details Date Type Department Care Team Description 12/25/2020 Hospital Encounter Department of [facility] Admini strative Purpose Laboratory Medicine MLinda, Ph.D. Exam in [address] [address] [place], [place] [phone] (Work) [phone] Social History Tobacco Use Types Packs/Day Years Used Date Smoking Tobacco: Never Smokeless Tobacco: Never Alcohol Use Standard Drinks/Week Comments No 0 (1 standard drink = 0.6 oz pure alcoho l) Sex Assigned at Date Recorded Not on file documented as of this encounter Medications at Time of Discharge [...] g per day total long-term blood sugar diagnostic 1 test once a week. 100 each 11 11/2019 (glucose blood) strips Dx: E11.9, brand per insurance preference blood-glucose meter 1 each daily. 1 each 1 each 0 2019 misc daily. Dx: E11.9. Brand per insurance coverage. calcium carbonate Chew 2 tablets 2 0 (TUMS) 500 mg (200 mg (two) times a day. calcium) chewable tablet lancets 1 each daily. Dx: 100 each 11 11/09/2019 E11.9. Brand per insurance coverage. loperamide (IMODIUM Take 2 mg by mouth 4 0 A-D) 2 mg capsule (four) times a day as needed for diarrhea. PEDIATRIC MULTIVITAMIN Take 4 tablets by 0 2015 NO.76 ([place]ES mouth daily. COMPLETE ORAL) allopurinoL (ZYLOPRIM) TAKE ONE TABLET BY 90 tablet 3 09/2108/13/2021 300 mg tablet MOUTH DAILY furosemide (LASIX) 40 TAKE ONE TABLET BY 90 tablet 3 202009/20/2021 mg tablet MOUTH DAILY omeprazole (PriLOSEC) Take 1 capsule (20 90 capsule 3 202012/18/[address] capsule mg total) by mouth every morning before breakfast. tamsulosin (FLOMAX) 0.4 Take 2 capsules (0.8 180 capsule 3 0 12/18/2020 11/19/2021 mg 24 hr capsule mg total) by mouth daily. documented as of this encounter Plan of Treatment Not on filedocumented as of this encounter Visit Diagnoses Diagnosis Administrative Purpose Exam documented in this encounter Additional Health Concerns Assessment Noted Time PHQ-9 Depression Total Score: 18 02/14/2013 9:53 AM CD T documented as of this encounter Care Teams Commercial Lines Account Manager Relationship Specialty Start Date End Date Cintia Cobb M.D. PCP - General 02/19/17 02/20/[address] [phone] documented as of this encounter
--- OUTSIDE RECORDS SUMMARY | 2022-07-29 10:44 | XMS_ITS | Encounter Summary ---
:1960 Author Organization [facility] Address [address] [place] [address] Care Team Providers Name Role Phone Cintia Cobb M.D. Primary Care Provider [phone] Reason for Visit Reason Comments Chest Wall Pain 61 year old male admits with concerns of right rib pain. Pt states he was working on his truck and was leaning on a piece of the truck and it has hurt ever since Encounter Details Date Type Department Care Team Description 07/27/2021 Emergency [facility] Joaquín Grayson, Elvi Chest Wall Department P.A.-C. (Primary Dx) [id number] [place] [address] [place] [phone] Social History Tobacco Use Types Packs/Day Years Used Date Smoking Tobacco: Never Smokeless Tobacco: Never Alcohol Use Standard Drinks/Week Comments No 0 (1 standard drink = 0.6 oz pure alcoho l) Sex Assigned at Date Recorded Not on file documented as of this encounter Last Filed Vital Signs Vital Sign Reading Time Taken Comments Blood Pressure - - Pulse - - Temperature - - Respiratory Rate - - Oxygen Saturation - - Inhaled Oxygen Concentration - - Weight 80 kg (176 lb 5.9 oz) 07/27/2021 11:56 AM WATER POLLUTION SPECIALIST Height - - Body Mass Index 23.92 08/12/2019 12:43 PM WATER POLLUTION SPECIALIST documented in this encounter Discharge Instructions Discharge InstructionsCrJoaquín burris P.A.-C. - 07/27/2021 1:10 PM WATER POLLUTION SPECIALIST Come back if needed R POLLUTION SPECIALIST AttachmentsThe following attachments cannot be sent through Care Everywhere. Chest Wall Pain (Danish)documented in this encounter Medications at Time of [...] daily. 1 [facility] Dx: E11.9. Brand per insurance coverage. calcium carbonate Chew 2 tablets 2 0 (TUMS) 500 mg (200 mg (two) times a day. calcium) chewable tablet lancets 1 each daily. Dx: 100 each 11/09/2019 E11.9. Brand per insurance coverage. loperamide [...] mouth at bedtime as needed for sleep. allopurinoL (ZYLOPRIM) TAKE ONE TABLET BY 90 tablet 3 09/2108/13/2021 300 mg tablet MOUTH DAILY furosemide (LASIX) 40 TAKE ONE TABLET BY 90 tablet 3 202009/20/2021 mg tablet MOUTH DAILY gabapentin (NEURONTIN) Take 1 capsule (300 100 capsule 11 08/13/2021 300 mg capsule mg total) by mouth at bedtime for 3 days, THEN 1 capsule (300 mg total) 2 (two) times a day for 3 days, THEN 1 capsule (300 mg total) 3 (three) times a day. HYDROcodone-acetaminoph Take 1 tablet by 8 tablet 0 202008/13/2021 en (NORCO) 5-325 mg per mouth every 6 (six) tabletIndications: hours as needed for Acute Pain pain (pain) Indication: acute pain. omeprazole (PriLOSEC) Take 1 capsule (20 90 capsule 3 202012/18/[address] capsule mg total) by mouth every morning before breakfast. tamsulosin (FLOMAX) 0.4 Take 2 capsules (0.8 180 capsule 3 0 12/18/2020 11/19/2021 mg 24 hr capsule mg total) by mouth daily. documented as of this encounter ED Notes Joaquín Grayson P.A.-C. - 07/27/2021 12:00 PM CST SUBJECTIVE CHIEF COMPLAINT/REASON FOR VISIT Chest Wall Pain (61 year old male admits with concerns of right rib pain. Pt states he was working on his truck and was leaning on a piece of the truck and it has hurt ever since) HISTORY OF PRESENT ILLNESS Ed Cuauhtemoc Luna is a 61-year-old male who presents with right chest wall pain. He states that he was leaning on an arm rest in his vehicle about a week ago with his right arm and he developed some right chest wall pain. The pain is from his anterior to posterior chest at the inferior aspect. This pain is made worse with deep breath and movement. He has been using a tight wrap around his chest to help withthe pain. He has been using ibuprofen and Tylenol without much relief. He denies any other specific injury. His pain has not worsened recently. He denies any fever or cough. He has no other complaints. REVIEW OF SYSTEMS Constitutional: Negative. Negative for fatigue and fever. HENT: Negative. Eyes: Negative. Respiratory: Negative for cough, chest tightness, shortness of breath and wheezing. Cardiovascular: Negative for chest pain, palpitations and leg swelling. Gastrointestinal: Negative. Genitourinary: Negative. Musculoskeletal: Negative for back pain and neck pain. Right chest wall pain Skin: Negative. Neurological: Negative. OBJECTIVE Initial Vitals [07/27/21 1155] Temp Pulse Heart Rate Resp BP SpO2 -- -- -- -- -- -- Pain Score 10 - Worst possible pain PHYSICAL EXAMINATION Constitutional: Nursing note and vitals reviewed. Vital signs are normal. He is cooperative. No distress. HENT: Head: Normocephalic. Eyes: Lids are normal. Periorbital area normal appearing. Neck: Phonation normal. Cardiovascular: Normal rate. Pulmonary/Chest: Effort normal and breath sounds normal. No tachypnea. No respiratory distress. He exhibits tenderness. He exhibits no bony tenderness and no crepitus. Minimally tender through the right lower chest from the anterior aspect to the axilla. No posterior tenderness. Full lungs. No respiratory distress. Musculoskeletal: Cervical back: No pain with movement. Neurological: Alert and oriented to person, place, and time. Normal speech. Skin: Skin is warm, dry and normal color. No rash noted. Psychiatric: He has a normal mood and affect. ASSESSMENT/PLAN IMPRESSION AND PLAN Ed Cuauhtemoc Luna is a 61-year-old male that presents with right chest wall pain. He has had this pain for about a week and is made worse with twisting and deep breath. My exam he is tender through the right anterior to axilla area of his inferior chest wall. His lungs are clear in full and I have low suspicion for pneumothorax. There is no obvious crepitus or subcutaneous emphysema. He did take ibuprofen and Tylenol earlier today. X-ray did not show any evidence of a rib fracture or pneumothorax. I gave him a prescription for Micro to use for more severe pain. He will follow-up in clinic as needed. DIFFERENTIAL DIAGNOSIS Rib fracture, muscle strain, pneumothorax, costochondritis I personally reviewed the radiology image(s). The Radiology exam interpretation(s) is/are normal. Final Diagnoses: as of 07/27/21 1316 Pain Chest Wall Joaquín Grayson P.A.-C. 07/27/21 1316 R POLLUTION SPECIALIST documented in this encounter Plan of Treatment Not on filedocumented as of this encounter Procedures Procedure Name Priority Date/Time Associated Comments Diagnosis DX RIBS RIGHT 2 VIEWS RAD - Routine 07/27/2021 Resul ts for WITH CHEST (most inpatients 12:42 PM WATER POLLUTION SPECIALIST this proced ure POSTEROANTERIOR 1 VIEW and all are i n the outpatients) results section. documented in this encounter Results DX Ribs Right 2 Views with Chest Posteroanterior 1 View (07/27/2021 12:42 PM WATER POLLUTION SPECIALIST) Anatomical Region Laterality Modality Ribs, Chest, Musculoskeletal RST LOS, Musculoskeletal Right Digital Radiography ARZ LOS, Muskuloskeletal FLA LOS Specimen (Source) Anatomical Collection Method Collection Time Re ceived Time Location / / Volume Laterality 07/27/2021 1:25 PM WATER POLLUTION SPECIALIST Impressions 07/27/2021 1:26 PM WATER POLLUTION SPECIALIST No acute appreciable rib fracture. No acute radiographic abnormality. Narrative 07/27/2021 1:26 PM WATER POLLUTION SPECIALIST EXAM: DX RIBS RIGHT 2 VIEWS WITH CHEST POSTEROANTERIOR 1 VIEW COMPARISON: 01/20/2017 FINDINGS: Patient's jewelry projects ove r the upper lungs, limiting evaluation. Dual lead left chest cardiac device. Car diac silhouette is within normal limits. Pulmonary vasculature is distinct. No ac creek consolidation, pleural effusion, or pneumothorax. No acute appreciable rib f racture. Procedure Note Jamal Montenegro M.D. - 07/27/2021Formattin g of this note might be different from the original. EXAM: DX RIBS RIGHT 2 VIEWS WITH CHEST P OSTEROANTERIOR 1 VIEW COMPARISON: 01/20/2017 FINDINGS: Patient's jewelry projects ove r the upper lungs, limiting evaluation. Dual lead left chest cardiac device. Car diac silhouette is within normal limits. Pulmonary vasculature is distinct. No ac creek consolidation, pleural effusion, or pneumothorax. No acute appreciable rib f racture. IMPRESSION: No acute appreciable rib fracture. No ac creek radiographic abnormality. Joaquín Grayson P.A.-C. [facility]E DURES documented in this encounter Visit Diagnoses Diagnosis Pain Chest Wall - Primary documented in this encounter Additional Health Concerns Assessment Noted Time PHQ-9 Depression Total Score: 18 02/14/2013 9:53 AM CD T documented as of this encounter Care Teams Senior Sales Associate Relationship Specialty Start Date End Date Cintia Cobb M.D. PCP - General 02/19/17 02/20/[address] [place] [phone] documented as of this encounter
--- OUTSIDE RECORDS SUMMARY | 2022-07-29 10:44 | XMS_ITS | Encounter Summary ---
:1960 Author Organization [facility] Address [address] [place] [address] Care Team Providers Name Role Phone Cintia Cobb M.D. Primary Care Provider [phone] Reason for Referral Outpatient (Routine) - Closed Specialty Diagnoses / Procedures Referred By Contact Refer red To Contact Diagnoses Pain Knee Left Kacie Huerta APRN, [facility] [place] [facility] Procedures kca-npkw-drevfudg-elbow arthrocentesis: L knee joint C.N.P., D.N.P. [address] [place] [address] Referral ID Status Reason Start Date Expiration Date Visits Requ ested Visits Authorized [id number] Closed 07/12/2021 07/12/2022 1 1 utpatient (Routine) - Closed Specialty Diagnoses / Procedures Referred By Contact Refer red To Contact Diagnoses Pain Hip Left Kacie Huerta APRN, [facility] [place] [facility] Procedures tcp-ihnb-kxonpsvh-elbow arthrocentesis: L greater troch bursa C.N.P., D.N.P. [address] [place] [address] Referral ID Status Reason Start Date Expiration Date Visits Requ ested Visits Authorized [id number] Closed 07/12/2021 07/12/2022 1 1 Reason for Visit Reason Comments Follow-up Encounter Details Date Type Department Care Team Description 07/12/2021 Office Visit Department of Kacie Huerta, Pain Knee L eft (Primary Dx); Orthopedic Surgery in [place] PALACIO, Pain Hip Left Merlyn Dean D.N.P. [address] [place] [phone] Social History Tobacco Use Types Packs/Day Years Used Date Smoking Tobacco: Never Smokeless Tobacco: Never Alcohol Use Standard Drinks/Week Comments No 0 (1 standard drink = 0.6 oz pure alcoho l) Sex Assigned at Date Recorded Not on file documented as of this encounter Progress Notes Kacie Huerta, [place] PAL[place], FidelNPiliP. - 07/12/2021 8:00 AM CDT Ed is a 61-year-old male who continues to have left knee pain who is status post left hip reduction intramedullary fixation of the left trochanteric femur fracture performed in August 2019. He has known arthritis of his left knee as well as chondrocalcinosis and has responded favorably to corticosteroids in the past. His hip pain may be stemming from his back any has had injections in his back which did improve his hip pain however now it appears to be more laterally, with no particular pain radiating into the groin. He has had some personal issues that he is dealing with and would like to have some resolution of his pain for now. Physical exam-left hip with adequate motion. No increased pain with flexion or abduction. He does have significant pain over the trochanteric area that does stimulate pain that radiates down to his knee. Knee is stable to valgus and varus. He has full extension and flexes to 120?? without difficulty. He has no particular joint line tenderness. Impression and plan- Ed is a pleasant 61-year-old who is having lateral hip pain and knee pain on his left side. He has a lot of personal issues going on and would like some resolution in his symptoms.At this time we discussed an injection to give him some pain relief which may be temporary but hopefully last longer. After brief discussion, consent form was obtained, per sterile technique using 5 cclidocaine and 80 mg of methylprednisone was injected into his left trochanteric bursa without difficulty and patient tolerated the procedure well. Attention was then placed on his left knee and per sterile technique using a small amount of 1% lidocaine and 40 mg of Kenalog was injected into left knee u sing the lateral approach without difficulty and patient tolerated the procedure well. Will plan to have him follow up as needed or if he gets no improvement or resolution in his symptoms. His questions were answered TECHNICIAN documented in this encounter Procedure Notes Theresa Santiago RAugustine - 07/12/2021 8:00 AM CDTAssociated Order(s): xmz-xrsn-lajpmmnw-elbow arthrocentesis: L greater troch bursa; gxf-nudb-iyifqkof -elbow arthrocentesis: L knee joint Post-Procedure Diagnose(s): Pain Hip Left; Pain Knee Left Hip site - L greater troch bursa : injection only Date/Time: 07/12/2021 8:48 AM Performed by: Kacie Huerta APRN, C.N.P., D.N.P. Authorized by: Kacie Huerta APRN, C.N.P., D.N.P. PROCEDURE DETAILS Procedure Location hip Hip site: L greater troch bursa Site prep: patient was prepped and draped in usual sterile fashion Patient position: seated Procedural approach: anterior Procedure performed: injection only Needle gauge: 22 G, length: 1 1/2 in Procedural Medication The following medications were administered at the target site(s) Local anesthetic: 5 mL lidocaine 10 mg/mL (1 %) Corticosteroid: 80 mg methylPREDNISolone acetate 80 mg/mL CONSENT Consent obtained: written PRE-PROCEDURE DETAILS Procedure purpose: therapeutic Site preparation: povidone-iodine POST-PROCEDURE DETAILS Procedure completed successfully: yes Complications: no apparent complications Post-procedure instructions: avoid strenuous activity for 2 days Discharge instructions: pain management instructions and ice area as needed for comfort Knee site- L knee joint : injection only Date/Time: 07/12/2021 8:50 AM Performed by: Kacie Huerta APRN, C.N.PPili, D.N.P. Authorized by: Kacie Huerta APRN, C.N.P., D.N.P. PROCEDURE DETAILS Procedure Location knee Knee site: L knee joint Site prep: patient was prepped and draped in usual sterile fashion Patient position: seated Procedural approach: anterolateral Procedure performed: injection only Needle gauge: 22 G, length: 1 1/2 in Procedural Medication The following medications were administered at the target site(s) Local anesthetic: 3 mL lidocaine 10 mg/mL (1 %) Corticosteroid: 40 mg triamcinolone acetonide 40 mg/mL CONSENT Consent obtained: written PRE-PROCEDURE DETAILS Procedure purpose: therapeutic and diagnostic Indications: left knee pain Site preparation: povidone-iodine SEDATION / ANESTHESIA Anesthesia method: none POST-PROCEDURE DETAILS Procedure completed successfully: yes Complications: no apparent complications Discharge instructions: dressing care and follow-up with ordering provider TECHNICIAN documented in this encounter Plan of Treatment Not on filedocumented as of this encounter Procedures Procedure Name Priority Date/Time Associated Diagnosis Comme nts CT ARTHCS ASP/INJ Routine 07/12/2021 8:50 AM Pain Knee Left Re sults for this MJR JT WO US CDT procedure are i n the results section. CT ARTHCS ASP/INJ Routine 07/12/2021 8:48 AM Pain Hip Left Res ults for this MJR JT WO US CDT procedure are i n the results section. documented in this encounter Results CT ARTHCS ASP/INJ MJR JT WO US (07/12/2021 8:50 AM CDT) Narrative MMODAL - 07/12/2021 8:50 AM CDT Theresa Santiago R.N. ? 07/15/2021 ??6:52 AM Knee site- L knee joint : injection only Date/Time: 07/12/2021 8:50 AM Performed by: Kacie Huerta APRN, C.N. P., Terri.N.P. Authorized by: Kacie Huerta APRN, C.N .P., D.N.P. PROCEDURE DETAILS Procedure Location knee Knee site: L knee joint Site prep: patient was prepped and drape d in usual sterile fashion ?? Patient position: seated Procedural approach: anterolateral Procedure performed: injection only Needle gauge: 22 G, length: 1 1/2 in Procedural Medication The following medications were administe red at the target site(s) Local anesthetic: 3 mL lidocaine 10 mg/m L (1 %) Corticosteroid: 40 mg triamcinolone acet onide 40 mg/mL CONSENT Consent obtained: written PRE-PROCEDURE DETAILS Procedure purpose: therapeutic and diagn ostic Indications: left knee pain Site preparation: povidone-iodine SEDATION / ANESTHESIA Anesthesia method: none POST-PROCEDURE DETAILS Procedure completed successfully: yes Complications: no apparent complications ?? Discharge instructions: dressing care an d follow-up with ordering provider Kacie Huerta APRN, C.N.P., D.N.P. PROCEDURE/MINOR GEE GICAL ORDERABLES Performing Organization Address City/State/ZIP Code Phon e Number MMODAL MMODAL NA CT ARTHCS ASP/INJ [facility]JR JT WO US (07/12/2021 8:48 AM CDT) Narrative MMOD[facility] - 07/12/2021 8:48 AM CDT Theresa Santiago R.N. ? 07/15/2021 ??6:52 AM Hip site - L greater troch bursa : injec tion only Date/Time: 07/12/2021 8:48 AM Performed by: Kacie Huerta APRN, C.N. P., D.N.P. Authorized by: Kacie Huerta APRN, C.N .P., D.N.P. PROCEDURE DETAILS Procedure Location hip Hip site: L greater troch bursa Site prep: patient was prepped and drape d in usual sterile fashion ?? Patient position: seated Procedural approach: anterior Procedure performed: injection only Needle gauge: 22 G, length: 1 1/2 in Procedural Medication The following medications were administe red at the target site(s) Local anesthetic: 5 mL lidocaine 10 mg/m L (1 %) Corticosteroid: 80 mg methylPREDNISolone acetate 80 mg/mL CONSENT Consent obtained: written PRE-PROCEDURE DETAILS Procedure purpose: therapeutic Site preparation: povidone-iodine POST-PROCEDURE DETAILS Procedure completed successfully: yes Complications: no apparent complications ?? Post-procedure instructions: avoid stren uous activity for 2 days Discharge instructions: pain management instructions and ice area as needed for comfort Kacie Huerta APRN, C.N.P., D.N.P. PROCEDURE/MINOR GEE GICAL ORDERABLES Performing Organization Address City/State/ZIP Code Phon e Number MMODAL MMODAL NA documented in this encounter Visit Diagnoses Diagnosis Pain Knee Left - Primary Pain Hip Left documented in this encounter Administered Medications Inactive Administered Medications - up to 3 most recent administrations Medication Order MAR Action Action Date Dose Rate Site lidocaine 10 mg/mL (1 %) injection 3 Given 07/12/2021 8:50 AM CD T 3 mL mL (XYLOCAINE) 3 mL, infiltration, One-Time Injection, Starting on Thu07/12/21 at 0850, For 1 dose lidocaine 10 mg/mL (1 %) injection 5 mL Given 07/12/2021 8:48 AM CDT 5 mL (XYLOCAINE) 5 mL, infiltration, One-Time Injection, Starting on Thu07/12/21 at 0848, For 1 dose methylPREDNISolone acetate injection 80 mg Given 07/12/2021 8:48 AM CDT 80 mg (DEPO-Medrol) 80 mg, intra-articular, One-Time Injection, Starting on Thu07/12/21 at 0848, For 1 dose triamcinolone acetonide injection 40 mg Given 07/12/2021 8:50 AM CDT 40 mg (KENALOG-40) 40 mg, intra-articular, One-Time Injection, Starting on Thu07/12/21 at 0850, For 1 dose documented in this encounter Additional Health Concerns Assessment Noted Time PHQ-9 Depression Total Score: 18 02/14/2013 9:53 AM CD T documented as of this encounter Care Teams Financial Systems Manager Relationship Specialty Start Date End Date Cintia Cobb M.D. PCP - General 02/19/17 02/20/[id number] [phone] documented as of this encounter
--- OUTSIDE RECORDS SUMMARY | 2022-07-29 10:44 | XMS_ITS | Encounter Summary ---
:1960 Author Organization [facility] Address [address] [place] [address] Care Team Providers Name Role Phone Cintia Cobb M.D. Primary Care Provider [phone] Encounter Details Date Type Department Care Team Description 12/18/2020 Hospital Encounter Department of [place] Diabetes Mellitus Laboratory Medicine Cintia Copeland Type 2 With Diabetic in Feliz Arellano M.D. Neuropathy ([facility]) [address] [place] [phone] Social History Tobacco Use Types Packs/Day [...] documented as of this encounter Care Teams Tongue Stitcher Relationship Specialty Start Date End Date Cintia Cobb M.D. PCP - General 02/19/17 02/20/[id number] [phone] documented as of this encounter
--- OUTSIDE RECORDS SUMMARY | 2022-07-29 10:44 | XMS_ITS | Encounter Summary ---
:1960 Author Organization [facility] Address [address] [place] [address] Care Team Providers Name Role Phone Cintia Cobb M.D. Primary Care Provider [phone] Reason for Visit Reason Comments Shortness of Breath COVID Nurse Line Encounter Details Date Type Department Care Team Description 04/05/2021 Nurse Triage Department of [facility] Joy Pineda Shor tness of Breath; Medicine, [facility] COVID Nurse Line Clinic, in [place] [phone] [address] Social History Tobacco Use Types Packs/Day Years Used Date Smoking Tobacco: Never Smokeless Tobacco: Never Alcohol Use Standard Drinks/Week Comments No 0 (1 standard drink = 0.6 oz pure alcoho l) Sex Assigned at Date Recorded Not on file documented as of this encounter Miscellaneous Notes Telephone Encounter - Joy Pineda RPiliNPili - 04/05/2021 5:07 PM CDT Chief Complaint / Reason for Call Patient is a 60 y.o. male calling regarding Shortness of Breath and COVID Nurse Line. Assessment Concern: Patient calls due to following up from increase weight gain. He reports he spoke with one of clinic nurses at middle of March regarding this and was following up regarding this. He does take lasix. He denies any swollen in legs. He reports shortness of breath and chest pain but reports this isnothing new or different. He reports he has had shortness of breath and chest pain at times since hehad his pacemaker placed. He reports no new or worsen symptoms. Present for: Since February Home cares tried: Eating veggies Calling to request: Advice The recommended disposition is See PCP Within 2 Weeks. Reason for Disposition ??? [1] MILD longstanding difficulty breathing AND [2] SAME as normal Protocols used: BREATHING [id number] Care Advice Patient/Caregiver understands and will follow care advice?: Yes, able to teach back CALL EMS IF: * Severe difficulty breathing occurs * Passes out or becomes too weak to stand * You become worse. CALL BACK IF: * Severe difficulty breathing occurs * Fever more than 100.5 F (38.1 C) * You become worse COVID-19 Nurse Line Screening ASSESSMENT Region Select appropriate region: : [place] Age Pathway Select approprite pathway: : Adult Have you had close contact* with a person who has a LABORATORY CONFIRMED case of COVID-19 in the past 14 days?: No (Continue Screening) In the last 48 hours, have you had a fever* OR symptoms that are unrelated to a preexisting illness?: No symptoms noted (Continue Screening) Have you tested positive for COVID-19 in the last 90 days?: No (Continue Screening) Have you been advised to undergo testing or are you requesting testing?: No, testing not recommended(End Screening) Testing Recommendation Endpoint Is testing recommended? : Not recommended to test PLAN Endpoint recommendation: Screening negative, testing not indicated at this time Asymptomatic without exposure Carepoints: Testing is not recommended at this time. If you become symptomatic, please call back for additional screening. Education: Patient/caregiver able to teach back Patient agreeable to plan of care: Yes The following references were used: [facility] novel coronavirus (COVID- 19) resources Nursing judgement documented in this encounter Plan of Treatment Not on filedocumented as of this encounter Visit Diagnoses Not on filedocumented in this encounter Additional Health Concerns Assessment Noted Time PHQ-9 Depression Total Score: 18 02/14/2013 9:53 AM CD T documented as of this encounter Care Teams Welder Tech Relationship Specialty Start Date End Date Cintia Cobb M.D. PCP - General 02/19/17 02/20/[id number] [phone] documented as of this encounter
--- OUTSIDE RECORDS SUMMARY | 2022-07-29 10:44 | XMS_ITS | Encounter Summary ---
:1960 Author Organization [facility] Address [address] [place] [address] Care Team Providers Name Role Phone Cintia Cobb M.D. Primary Care Provider Encounter Details Date Type Department Care Team Description 05/14/2021 Orders Only [facility] PCP [facility] Priyanka Cobb Mellitus Type OLEG Piper M.D. 2 With Diabetic [address] [address] Neuropathy ( HCC) [place] [address] (Wo rk) Social History Tobacco [...] documented as of this encounter Care Teams Oven Roaster Relationship Specialty Start Date End Date Cintia Cbob M.D. PCP - General 02/19/17 02/20/22 [address] [facility] [address] [place] [phone] documented as of this encounter
--- OUTSIDE RECORDS SUMMARY | 2022-07-29 10:44 | XMS_ITS | Encounter Summary ---
:1960 Author Organization [facility] Address [address] [place] [address] Care Team Providers Name Role Phone Cintia Cobb M.D. Primary Care Provider [phone] Reason for Visit Reason Comments Medication Question Encounter Details Date Type Department Care Team Description 03/01/2021 [facility], [facility], in [address] [address] [place], [place] [phone] (Work) [phone] Social History Tobacco Use Types Packs/Day Years Used Date Smoking Tobacco: Never Smokeless Tobacco: Never Alcohol Use Standard Drinks/Week Comments No 0 (1 standard drink = 0.6 oz pure alcoho l) Sex Assigned at Date Recorded Not on file documented as of this encounter Miscellaneous Notes Telephone Encounter - Kena Servin, L.P.N. - 03/01/2021 10:34 AM CDT Called and updated Magali regarding the questions and Dr. Song's recommendation and understood. No other concerns at this time. Telephone Encounter - Cintia Cobb M.D. - 03/01/2021 10:25 AM CDT Ed can continue with Tums and gabapentin. There is not a worrisome interaction between these medications. Also- grapefruit is not a good source of calcium. Cintia Segura Telephone Encounter - Madison Rodarte - 03/01/2021 8:04 AM CDT MEDICATION QUESTION: What number can I reach you at? [phone] Magali What is the patient's request? Ed is taking Gabapentin and the pharmacy tells him he should not be taking antiacids while taking this. He says he takes the Tums for calcium. Ed also eats a grapefruit every evening and he wonders if this is not enough calcium in that? Medication name/dose: Gabapentin & Tums Recent changes/new symptoms/side effects: What pharmacy are you using today? Additional comments (if any): Please talk with Magali, as Ed does not have voicemail and has Chairez blocked on his phone, Routing: - if no new symptoms or side effects, please route to [facility] pool of prescribing provider - if new symptoms have having side effects, please transfer to off-site triage ([phone]) documented in this encounter Plan of Treatment Not on filedocumented as of this encounter Visit Diagnoses Not on filedocumented in this encounter Additional Health Concerns Assessment Noted Time PHQ-9 Depression Total Score: 18 02/14/2013 9:53 AM CD T documented as of this encounter Care Teams Clinical Applications Manager Relationship Specialty Start Date End Date Cintia Cobb M.D. PCP - General 02/19/17 02/20/[address] [address] documented as of this encounter
--- OUTSIDE RECORDS SUMMARY | 2022-07-29 10:44 | XMS_ITS | Encounter Summary ---
:1960 Author Organization [facility] Address [address] [place] [address] Care Team Providers Name Role Phone Cintia Cobb M.D. Primary Care Provider [phone] Reason for Visit Reason Comments Gabapentin/ SE Encounter Details Date Type Department Care Team Description 03/04/2021 Clinical Communication Department of [facility] millie/ [facility] [place] S, M.D. Clinic, in [address] [address] [place], [place] [phone] (Work) [phone] Social History Tobacco Use Types Packs/Day Years Used Date Smoking Tobacco: Never Smokeless Tobacco: Never Alcohol Use Standard Drinks/Week Comments No 0 (1 standard drink = 0.6 oz pure alcoho l) Sex Assigned at Date Recorded Not on file documented as of this encounter Miscellaneous Notes Telephone Encounter - Laura Mejia R.N. - 03/06/2021 3:01 PM CDT Tried to contact pt, no answer, detailed VM left relaying provider message. Requested return call with questions/concerns. Telephone Encounter - Cintia Cobb M.D. - 03/05/2021 7:41 PM CDT Weight gain can be a rare side effect of gabapentin. Constipation is not a typical symptom but is possible. It is up to him if he would like to continue this medication. If he decides to stop it, he should wean off of it. If he decides to continue it, he should take a medication such as MiraLax to help with his bowels. Telephone Encounter - Fernanda Buckner R.N. - 03/05/2021 8:43 AM CDT Pt called back and LM with PASS- since starting gabapentin, he has been constipated. Please address constipation with increased fluids and OTC Dulcolax, Senna and/ or Miralax with call back to 's cell #. OK to Leave detailed message per pt. Telephone Encounter - Fernanda Buckner R.N. - 03/05/2021 8:33 AM CDT SUBJECTIVE CHIEF COMPLAINT / REASON FOR CALL Gabapentin/ SE Information Discussed Spoke with pt who states his SOB, chest pain and weakness is not any different now than before his pacemaker was placed. He reports he is not happy about it being placed and still wants it out. He takes his Lasix only at HS when he has swelling in his ankles. Disposition/Recommendation: Recommended pt seek emergency care if he has an increase in any chest pain, SOB , dizziness or weakness. Awaiting response from PCP. Information/Education: patient/caller able to teach back Caller agreeable to plan of care: yes The following references were used: nursing clinical judgement Telephone Encounter - Laura Mejia R.N. - 03/04/2021 12:14 PM CDT Per [employer] this is not a reported side effect. Tried to contact pt's emergency contact, Magali, to discuss further, no answer, VM left requesting return call. Need to know if pt also experiencing any other symptoms, like shortness of breath, ankle swelling, fatigue, rapid heartbeat, etc. Telephone Encounter - Caro Harper - 03/04/2021 8:10 AM CDT Patient states that he was started on the Gabapentin and her has had a weight gain of 12 pounds. Asking if there is a chance of weight gain with this medications? Please advise. Thanks documented in this encounter Plan of Treatment Not on filedocumented as of this encounter Visit Diagnoses Not on filedocumented in this encounter Additional Health Concerns Assessment Noted Time PHQ-9 Depression Total Score: 18 02/14/2013 9:53 AM CD T documented as of this encounter Care Teams Human Resources Safety Manager Relationship Specialty Start Date End Date Cintia Cobb M.D. PCP - General 02/19/17 02/20/[address] [place] [phone] documented as of this encounter
--- OUTSIDE RECORDS SUMMARY | 2022-07-29 10:44 | XMS_ITS | Encounter Summary ---
:1960 Author Organization [facility] Address [address] [place] [address] Care Team Providers Name Role Phone Cintia Cobb M.D. Primary Care Provider Encounter Details Date Type Department Care Team Description 02/05/2021 Orders Only [facility] PCP [facility] Priyanka Cobb Mellitus Type DREWT Cintia Piper M.D. 2 With Diabetic [address] [address] Neuropathy ( HCC) [place] [address] (Wo rk) Social History Tobacco [...] documented as of this encounter Care Teams Analysis Reporting Developer Relationship Specialty Start Date End Date Cintia Cobb M.D. PCP - General 02/19/17 02/20/22 [address] [facility] [address] [place] [phone] documented as of this encounter
--- OUTSIDE RECORDS SUMMARY | 2022-07-29 10:44 | XMS_ITS | Encounter Summary ---
:1960 Author Organization [facility] Address [address] [place] [address] Care Team Providers Name Role Phone Cintia Bullock M.D. Primary Care Provider [phone] Reason for Referral Outpatient (Routine) - Closed Specialty Diagnoses / Procedures Referred By Contact Refer red To Contact Pain Medicine Diagnoses Pain Low Back Unspecified Cintia Bullock DREW Piper M.D. [address] [place] [phone] Referral ID Status Reason Start Date Expiration Date Visits V isits Requested Authorized [id number] Closed Specialty 02/18/2021 02/18/2022 1 1 Services Required Reason for Visit Reason Comments Medical Information Encounter Details Date Type Department Care Team Description 02/05/2021 [facility], [place] [facility], in [place] [address] [place] [address] [address] [place] [phone] Social History Tobacco Use Types Packs/Day Years Used Date Smoking Tobacco: Never Smokeless Tobacco: Never Alcohol Use Standard Drinks/Week Comments No 0 (1 standard drink = 0.6 oz pure alcoho l) Sex Assigned at Date Recorded Not on file documented as of this encounter Miscellaneous Notes Addendum Note - Cintia Bullock M.D. - 02/18/2021 7:57 AM CDT Addended by: CINTIA BULLOCK on: 02/18/2021 07:57 AM Modules accepted: Orders Telephone Encounter - Cintia Bullock M.D. - 02/18/2021 7:54 AM CDT I was able to speak with patient and relay message re: back and bladder. States bladder symptoms areoverall tolerable. He does dribble at times. He is interested in trying medication to: The nerves ofhis back and would also like to see Dr. Gonzalez again. We will start with gabapentin and refer to Dr. Gonzalez. Telephone Encounter - Laura Mejia RPiliN. - 02/07/2021 9:31 AM CDT Again tried to contact pt, no answer, VM again left requesting return call. Telephone Encounter - Laura Mejia R.N. - 02/06/2021 8:34 AM CDT Again tried to contact pt, no answer, VM again left requesting return call. Telephone Encounter - Preethi Wagner R.N. - 02/06/2021 8:32 AM CDT Left message for patient to contact clinic. Telephone Encounter - Cintia Bullock M.D. - 02/05/2021 4:30 PM CDT Please let patient know that I am also concerned about his back and whether the urine incontinence is related to this. At our last visit, I thought that he had an appointment with his spine surgeon in the [facility]. If he does not, he should make one. He will also likely need back imaging if he has not had this recently. Preferably an MRI, but I do not remember if his pacemaker is MRI compatible. If not, then a CT scan. I can order these things or he can have them done through his spine surgeon. Cintia Segura Telephone Encounter - Marialuisa Romero R.N. - 02/05/2021 11:20 AM CDT Chief Complaint / Reason for Call Patient is a 60 y.o. male calling regarding Medical Information. Assessment Concern: He fell again on Thursday. He has fallen twice in the last year because his legs go out.Has had back problems since he was a kid. He had laminectomies in 1988. His last cortisone injection was 3weeks ago. Patient has a friend with the same problem in his back that he does. He is getting shots and his provider is going to give him some sort of medication to relax the nerves. He says he is having trouble with incontinence of urine and is wondering if it is from his back. He says the incontinence varies in frequency. His urine is foamy. Present for: The incontinence has been going on for 6 months or more. His provider has increased hisprostate medication. Home cares tried: Calling to request: A prescription for his spine to take the pressure off relax his nerves. The recommended disposition is Other. Requesting provider to prescription to take the pressure off the nerves to [facility]/ [facility]. Call disconnected and unable to reach in callback. Message sent to primary as requested. documented in this encounter Plan of Treatment Scheduled Referrals Name Type Priority Associated Diagnoses Order S [facility] Pain Medicine - Outpatient Referral Routine Pain Low Back Expe cted: General consult 02/19/2021, (clinic) Expires: 02/19/2024 documented as of this encounter Visit Diagnoses Diagnosis Pain Low Back Unspecified - Primary documented in this encounter Additional Health Concerns Assessment Noted Time PHQ-9 Depression Total Score: 18 02/14/2013 9:53 AM CD T documented as of this encounter Care Teams Receiving And Processing Supervisor Relationship Specialty Start Date End Date Cintia Bullock M.D. PCP - General 02/19/17 02/20/[address] [place] [phone] documented as of this encounter
--- OUTSIDE RECORDS SUMMARY | 2022-07-29 10:44 | XMS_ITS | Encounter Summary ---
:1960 Author Organization [facility] Address [address] [place] [address] Care Team Providers Name Role Phone Cintia Cobb M.D. Primary Care Provider [phone] Reason for Visit Reason Comments Shoulder Pain Pt presents to ED with left shoulder pain. Pt reports a branch hit his shoulder when mowing lawn 08/27. Encounter Details Date Type Department Care Team Description 02/18/2021 Emergency [facility] Alexey Patel, Pain Shoulder Left Department P.A.-C. (Primary Dx) [address] [address] [address] [place], [place] [phone] Social History Tobacco Use Types Packs/Day Years Used Date Smoking Tobacco: Never Smokeless Tobacco: Never Alcohol Use Standard Drinks/Week Comments No 0 (1 standard drink = 0.6 oz pure alcoho l) Sex Assigned at Date Recorded Not on file documented as of this encounter Last Filed Vital Signs Vital Sign Reading Time Taken Comments Blood Pressure 138/77 02/18/2021 9:15 PM CDT Pulse 90 02/18/2021 9:15 PM CDT Temperature 36.3 ??C (97.3 ??F) 02/18/2021 9:15 PM CDT Respiratory Rate 18 02/18/2021 9:15 PM CDT Oxygen Saturation 100% 02/18/2021 9:15 PM CDT Inhaled Oxygen Concentration - - Weight - - Height - - Body Mass Index - - documented in this encounter Discharge Instructions AttachmentsThe following attachments cannot be sent through Care Everywhere. Shoulder Pain ([place]ank[place])documented in this encounter Medications at Time of [...] (NEURONTIN) Take 1 capsule (300 100 capsule 08/13/2021 300 mg capsule mg total) by mouth at bedtime for 3 days, THEN 1 capsule (300 mg total) 2 (two) times a day for 3 days, THEN 1 capsule (300 mg total) 3 (three) times a day. omeprazole (PriLOSEC) Take 1 capsule (20 90 capsule 3 202012/18/[address] capsule mg total) by mouth every morning before breakfast. tamsulosin (FLOMAX) 0.4 Take 2 capsules (0.8 180 capsule 3 0 12/18/2020 11/19/2021 mg 24 hr capsule mg total) by mouth daily. documented as of this encounter ED Notes Alexey Patel P.A.-C. - 02/18/2021 10:32 PM CDT SUBJECTIVE CHIEF COMPLAINT/REASON FOR VISIT Shoulder Pain (Pt presents to ED with left shoulder pain. Pt reports a branch hit his shoulder when mowing lawn 02/16/21.) HISTORY OF PRESENT ILLNESS 60-year-old male complains of left shoulder pain after accidentally hitting his shoulder on a branchtrauma with ER on February 16. Pain is worse with palpation and movement. Improve somewhat with rest. Nothing else seems to make symptoms better or worse. Patient denies reduced range of motion of the shoulder. REVIEW OF SYSTEMS Constitutional: Negative for chills and fever. HENT: Negative for ear pain, rhinorrhea and sore throat. Eyes: Negative for visual disturbance. Respiratory: Negative for shortness of breath and wheezing. Cardiovascular: Negative for chest pain and palpitations. Gastrointestinal: Negative for abdominal pain, diarrhea and vomiting. Genitourinary: Negative for dysuria and frequency. Musculoskeletal: Negative except for HPI Skin: Negative for rash. Neurological: Negative for weakness and headaches. All other systems reviewed and are negative. OBJECTIVE Initial Vitals [02/18/212114] Temperature Pulse Rate Heart Rate Resp Rate Blood Pressure SpO2 36.3 ??C 90 -- 18 138/77 100 % Pain Score 10 - Worst possible pain PHYSICAL EXAMINATION Constitutional: Nursing note and vitals reviewed. HENT: Head: Normocephalic and atraumatic. Right Ear: Tympanic membrane normal. Left Ear: Tympanic membrane normal. Nose: No nasal discharge. Mouth/Throat: Oropharynx is clear and moist. Mucous membranes are moist. Eyes: Pupils are equal, round, and reactive to light. Neck: Neck supple. Cardiovascular: Normal rate, regular rhythm, S1 normal, S2 normal and normal heart sounds. Pulses are palpable. Pulmonary/Chest: Effort normal and breath sounds normal. There is normal air entry. Abdominal: Soft. Bowel sounds are normal. There is no hepatosplenomegaly. There is no abdominal tenderness. There is no rebound and no guarding. Musculoskeletal: Left shoulder: Tenderness present. No swelling, deformity or crepitus. Normal strength. Normal pulse. Left upper arm: Normal. Left elbow: Normal. Left forearm: Normal. Left wrist: Normal. Left hand: Normal. Cervical back: Normal range of motion and neck supple. Comments: Patient is neurovascular intact distally. Neurological: Alert and oriented to person, place, and time. Skin: Skin is warm. No rash noted. ASSESSMENT/PLAN IMPRESSION AND PLAN Patient appears well. Based on history, physical exam, and workup in the ER I do not suspect fracture or dislocation. Patient likely has suffered from soft tissue injury with contusion. We discussed rice, ibuprofen. He is well established with PCP and will follow-up the same. He return to the ER if new symptoms develop, current symptoms worsen, symptoms fail to improve, or patient becomes concerned. Patient discharged good condition. I reviewed previous medical records including radiology images/report and documentation from previous visits. I reviewed the radiology report(s) and personally reviewed the radiology image(s), with the following comments: No acute findings. Final Diagnoses: as of Feb 19 2237 Pain Shoulder Left Alexey Patel, P.A.-C. 02/19/212236 documented in this encounter Plan of Treatment Not on filedocumented as of this encounter Procedures Procedure Name Priority Date/Time Associated Comments Diagnosis DX SHOULDER LEFT RAD - Semiurgent 02/18/2021 10:06 Res ults for this 2+ VIEWS (Fast; most ED PM CDT procedure are in patients; some the results inpatients) section. documented in this encounter Results DX Shoulder Left 2+ Views (02/18/2021 10:06 PM CDT) Anatomical Region Laterality Modality Upper Extremity, Shoulder, Musculoskeletal RST LOS, Left Digital Radiography Musculoskeletal ARZ LOS, Muskuloskeletal FLA LOS Specimen (Source) Anatomical Collection Method Collection Time Re ceived Time Location / / Volume Laterality 02/18/2021 10:19 PM CDT Impressions 02/18/2021 10:19 PM CDT No acute fracture or dislocation. Alignment is anatomic. Moderate glenohumeral joint osteoarthritis. The a cromioclavicular joint is not well evaluated secondary to obliquity. Left-s ided pacemaker. Narrative 02/18/2021 10:19 PM CDT EXAM: DX SHOULDER LEFT 2+ VIEWS Procedure Note Juan Miguel Robins M.D. - 02/18/2021Formatt ing of this note might be different from the original. EXAM: DX SHOULDER LEFT 2+ VIEWS IMPRESSION: No acute fracture or dislocation. Alignm ent is anatomic. Moderate glenohumeral joint osteoarthritis. The a cromioclavicular joint is not well evaluated secondary to obliquity. Left-s ided pacemaker. Alexey Terri Patel P.A.-C. [facility] documented in this encounter Visit Diagnoses Diagnosis Pain Shoulder Left - Primary documented in this encounter Additional Health Concerns Assessment Noted Time PHQ-9 Depression Total Score: 18 02/14/2013 9:53 AM CD T documented as of this encounter Care Teams Actuarial Consultant Relationship Specialty Start Date End Date Cintia Cobb M.D. PCP - General 02/19/17 02/20/[address] [place] [phone] documented as of this encounter
--- OUTSIDE RECORDS SUMMARY | 2022-07-29 10:44 | XMS_ITS | Encounter Summary ---
:1960 Author Organization [facility] Address [address] [place] [address] Care Team Providers Name Role Phone Cintia Cobb M.D. Primary Care Provider [phone] Reason for Visit Reason Comments SOB/ weight gain Encounter Details Date Type Department Care Team Description 04/05/2021 Clinical Communication Department of [facility] SOB/ weight gain Family MedicineMin [facility] [place] S, M.D. Clinic, in [address] [address] [place], [place] [phone] (Work) [phone] Social History Tobacco Use Types Packs/Day Years Used Date Smoking Tobacco: Never Smokeless Tobacco: Never Alcohol Use Standard Drinks/Week Comments No 0 (1 standard drink = 0.6 oz pure alcoho l) Sex Assigned at Date Recorded Not on file documented as of this encounter Miscellaneous Notes Telephone Encounter - Fernanda Buckner R.N. - 04/09/2021 11:13 AM CDT See also Nurse Triage note from 04/05/21- SOB, chest pain & weight gain (not new s/s). RECOMMENDATION TO MAKE F/U APPT WITH PCP OR ANOTHER PROVIDER WITHIN 2 WEEKS! Multiple attempts to reach patient to relay info. See 03/12 and 03/[address] Song: From 03/04 communication (detailed VM left): Weight gain can be a rare side effect of gabapentin. Constipation is not a typical symptom but is possible. It is up to him if he would like to continue this medication. If he decides to stop it, he should wean off of it. If he decides to continue it, he should take a medication such as MiraLax to help with his bowels. From 03/12/21 communication (Left messages to call back): I advise patient to avoid watching the news if he finds it upsetting. There would not be any other specific treatment outside of Tylenol for a headache. From 03/18 communication: Please let patient know that gabapentin can cause swelling in hands/feet/legs of some patients. It does not typically cause weight gain, but if he is noticing weight gain since starting this medicine, it is possible that the medicine is contributing. If he feels that these possible side effects do notoutweigh the benefits of the medicine, he can slowly decrease the gabapentin every few days until heis off of the medication. Cintia Segura Telephone Encounter - Leesa Patterson - 04/05/2021 9:32 AM CDT Pt called asking to speak with Preethi. Preethi is not in today. I was unable to get a hold of a nurse. Pt has Chairez blocked. Pt states he will keep calling in. Telephone Encounter - Courtney Calixto - 04/05/2021 8:38 AM CDT Reason for Communication: Patent is calling he said he left a message about a month ago and no one has gotten back to him, again he would not tell me what it is regarding, please call him back Current Can Nursing/Provider leave a detailed message?: no Did the patient refuse triage through Nurse line? (for symptom based concerns): na Action Needed: Patient said he will call back Name of Medication (if relevant): unknown Please send all scheduling replies to scheduling pool. documented in this encounter Plan of Treatment Not on filedocumented as of this encounter Visit Diagnoses Not on filedocumented in this encounter Additional Health Concerns Assessment Noted Time PHQ-9 Depression Total Score: 18 02/14/2013 9:53 AM CD T documented as of this encounter Care Teams Surveyor Mine Relationship Specialty Start Date End Date Cintia Cobb M.D. PCP - General 02/19/17 02/20/[address] [place] [phone] documented as of this encounter
--- OUTSIDE RECORDS SUMMARY | 2022-07-29 10:44 | XMS_ITS | Encounter Summary ---
:1960 Author Organization [facility] Address [address] [place] [address] Care Team Providers Name Role Phone Cintia Cobb M.D. Primary Care Provider [phone] Reason for Visit Reason Comments Back Surgery questions Encounter Details Date Type Department Care Team Description 12/25/2020 Clinical Department of [place] Back Surgery Communication Family Medicine, Cintia Copeland [facility], in [address] [address] [place], [place] [phone] (Work) [phone] Social History Tobacco Use Types Packs/Day Years Used Date Smoking Tobacco: Never Smokeless Tobacco: Never Alcohol Use Standard Drinks/Week Comments No 0 (1 standard drink = 0.6 oz pure alcoho l) Sex Assigned at Date Recorded Not on file documented as of this encounter Miscellaneous Notes Telephone Encounter - Josep Akers L.P.N. - 01/01/2021 10:45 AM CDT Left a generic message for patent to call back. Patient has a appointment on 01/04/2021 PMR. Telephone Encounter - Estrella Haji L.PPiliN. - 12/31/2020 10:25 AM CDT Left generic message requesting call back to the clinic. Telephone Encounter - Preethi Wagner R.N. - 12/28/2020 2:40 PM CDT Left message for patient to contact clinic. Telephone Encounter - Fernanda Buckner R.N. - 12/27/2020 10:50 AM CDT Left generic message to call back and leave detailed message / questions, if possible and let us know if we can leave details on his un personalized VM. Noted LV 12/18/20: #7 Pain Low Back Patient will continue working with external orthopedic surgeons to manage his back pain with radiculopathy. Telephone Encounter - Keyla Evangelista - 12/25/2020 11:07 AM CDT Reason for Communication: Patient would like to speak with Dr. Song's nurse about back surgery. Current Can Nursing/Provider leave a detailed message?: Did the patient refuse triage through Nurse line? (for symptom based concerns): Action Needed: Please call patient. Name of Medication (if relevant): NA documented in this encounter Plan of Treatment Not on filedocumented as of this encounter Visit Diagnoses Not on filedocumented in this encounter Additional Health Concerns Assessment Noted Time PHQ-9 Depression Total Score: 18 02/14/2013 9:53 AM CD T documented as of this encounter Care Teams Leasing Machine Tender Relationship Specialty Start Date End Date Cintia Cobb M.D. PCP - General 02/19/17 02/20/[id number] [address] documented as of this encounter
--- OUTSIDE RECORDS SUMMARY | 2022-07-29 10:44 | XMS_ITS | Encounter Summary ---
:1960 Author Organization [facility] Address [address] [place] [address] Care Team Providers Name Role Phone Cintia Cobb M.D. Primary Care Provider [phone] Reason for Visit Reason Comments Follow-up Triage note 02/05 Encounter Details Date Type Department Care Team Description 02/11/2021 Clinical Department of [place] Follow-up ([facility] Communication Family Medicine, Cintia Copeland note 02/05) [facility], in [address] [address] [place], [place] [phone] (Work) [phone] Social History Tobacco Use Types Packs/Day Years Used Date Smoking Tobacco: Never Smokeless Tobacco: Never Alcohol Use Standard Drinks/Week Comments No 0 (1 standard drink = 0.6 oz pure alcoho l) Sex Assigned at Date Recorded Not on file documented as of this encounter Miscellaneous Notes Telephone Encounter - Estrella Haji L.PPiliN. - 02/13/2021 10:32 AM CDT Left generic message requesting call back to the clinic. Several unsuccessful attempts. Letter sent. Telephone Encounter - Jackie Baker L.P.N. - 02/12/2021 10:13 AM CDT Attempted to contact patient, no answer, left voicemail to call clinic back. Telephone Encounter - Preethi Wagner R.N. - 02/11/2021 4:41 PM CDT Per triage note on 02/05/2021, multiple attempts made to contact patient but unable to reach. Note from provider states: Please let patient know that I am also concerned about his back and whether the urine incontinence is related to this. At our last visit, I thought that he had an appointment with his spine surgeon in the [facility]. If he does not, he should make one. He will also likely need backimaging if he has not had this recently. Preferably an MRI, but I do not remember if his pacemaker is MRI compatible. If not, then a CT scan. I can order these things or he can have them done through his spine surgeon.. Left detailed message on patient's voicemail with above information. Telephone Encounter - Ellen Reyes - 02/11/2021 3:38 PM CDT Reason for Communication: Patient had returned a call to nurses. Current Can Nursing/Provider leave a detailed message?: yes Did the patient refuse triage through Nurse line? (for symptom based concerns): na Action Needed: Please call patient back Name of Medication (if relevant): documented in this encounter Plan of Treatment Not on filedocumented as of this encounter Visit Diagnoses Not on filedocumented in this encounter Additional Health Concerns Assessment Noted Time PHQ-9 Depression Total Score: 18 02/14/2013 9:53 AM CD T documented as of this encounter Care Teams Resizer Operator Relationship Specialty Start Date End Date Cintia Cobb M.D. PCP - General 02/19/17 02/20/[id number] [id number] documented as of this encounter
--- OUTSIDE RECORDS SUMMARY | 2022-07-29 10:44 | XMS_ITS | Encounter Summary ---
:1960 Author Organization [facility] Address [address] [place] [address] Care Team Providers Name Role Phone Cintia Cobb M.D. Primary Care Provider [phone] Reason for Visit Reason Comments Post Surgery Question Encounter Details Date Type Department Care Team Description 04/10/2021 Clinical Department of [place] Post Surgery Communication Family MedicineMin Megan Questio n [place] [facility] M[facility], in [address] [address] [place], [place] [phone] (Work) [phone] Social History Tobacco Use Types Packs/Day Years Used Date Smoking Tobacco: Never Smokeless Tobacco: Never Alcohol Use Standard Drinks/Week Comments No 0 (1 standard drink = 0.6 oz pure alcoho l) Sex Assigned at Date Recorded Not on file documented as of this encounter Miscellaneous Notes Telephone Encounter - Maricel Aleman R.N. - 04/11/2021 9:30 AM CDT Patient called back today and was informed that he could cross at his ankles, and can bring his surgical side ankle up to his opposite knee/thigh to make a triangle, but he should not be crossing hislegs at his knees. Patient stated that he can't bring his ankle up that far to make a triangle, patient was then informed that he could buy a sock-aide to assist him to put his socks on. Patient's response was I've tried a sock-aide and those are a poor excuse for a tool. Patient was irritated stating that he had crossed his legs many times and nothing has happened. This machine sign writer informed patient that this is highly not recommended by his surgeon, as it can lead to dislocation. Patient then began carrying on and making negative slurs about the surgeon and wanted this machine sign writer to tell that to his surgeon. This machine sign writer attempted to deescalate and change the conversation to see if there is any other other questions to address. Patient continued to say rude comments about the surgeon. Patient continued to complain, so machine sign writer ended the call. Telephone Encounter - Loly Betts L.P.N. - 04/10/2021 1:41 PM CDT Message left on patient phone Telephone Encounter - Mehreen Coleman APRN, C.N.P., D.N.P. - 04/10/2021 1:34 PM CDT He should be able to put his foot up on the opposite knee to put his socks on but should continue toavoid crossing this knees. I hope this helps. Thanks. Telephone Encounter - Loly Betts L.P.N. - 04/10/2021 1:27 PM CDT Please advise, I will call patient. Telephone Encounter - Margaret Mcallister - 04/10/2021 1:21 PM CDT Reason for Communication: Post hip replacement Current Can Nursing/Provider leave a detailed message?: Yes Did the patient refuse triage through Nurse line? (for symptom based concerns): NA Action Needed: Patient called with question post hip surgery. Patient is wondering when he is going to be able to cross his legs again post hip surgery in August of 2019. He is wondering this to helpwith putting his socks on in the morning. Please review and call to advise. He is requesting us to call his wifes phone at [phone]. A detailed message can be left on this line if she doesn't answer. His main number has [employer] line blocked and no voicemail Name of Medication (if relevant): NA Please send all scheduling replies to scheduling pool. documented in this encounter Plan of Treatment Not on filedocumented as of this encounter Visit Diagnoses Not on filedocumented in this encounter Additional Health Concerns Assessment Noted Time PHQ-9 Depression Total Score: 18 02/14/2013 9:53 AM CD T documented as of this encounter Care Teams Land Leasing Information Clerk Relationship Specialty Start Date End Date Cintia Cobb M.D. PCP - General 02/19/17 02/20/[id number] [address] documented as of this encounter
--- OUTSIDE RECORDS SUMMARY | 2022-07-29 10:44 | XMS_ITS | Encounter Summary ---
:1960 Author Organization [facility] Address [address] [place] [address] Care Team Providers Name Role Phone Cintia Cobb M.D. Primary Care Provider [phone] Reason for Visit Reason Comments Referral Pain Med Referral Encounter Details Date Type Department Care Team Description 02/18/2021 Clinical Communication Department of [facility] Referral (Pain Med Medicine in [place], R.N. Referral) [place], [place] [phone] [address] [facility] (Work) [place] [address] Social History Tobacco Use Types Packs/Day Years Used Date Smoking Tobacco: Never Smokeless Tobacco: Never Alcohol Use Standard Drinks/Week Comments No 0 (1 standard drink = 0.6 oz pure alcoho l) Sex Assigned at Date Recorded Not on file documented as of this encounter Miscellaneous Notes Telephone Encounter - Jena Martell RKevin. - 02/22/2021 10:09 AM CDT Attempted to contact patient, no answer, unable to leave voice message due to voice mail box being full. Will send a letter in the mail. Telephone Encounter - Preethi Wagner R.N. - 02/21/2021 8:12 AM CDT Left message for patient to contact clinic. Telephone Encounter - Jena Martell R.N. - 02/20/2021 8:14 AM CDT Attempted to contact patient/, no answer, left voice message with patient/ to contact the clinic. Telephone Encounter - Cintia Cobb M.D. - 02/19/2021 4:02 PM CDT Can you please notify patient/ that pain medicine recommends patient see spine surgeon again? Can you get the name/ortho group that he saw previously and I can place the referral? Cintia Segura Telephone Encounter - Estrella Parra R.N. - 02/18/2021 10:51 AM CDT Orders placed by Dr. Duncan Copeland for patient to be seen in pain medicine. Patient previously seen on 12/03/20 at that time patient decided to seek care in the [facility]. Please review triage note from 02/05/21 and advise, thank you! documented in this encounter Plan of Treatment Not on filedocumented as of this encounter Visit Diagnoses Not on filedocumented in this encounter Additional Health Concerns Assessment Noted Time PHQ-9 Depression Total Score: 18 02/14/2013 9:53 AM CD T documented as of this encounter Care Teams Tubing Supervisor Relationship Specialty Start Date End Date Cintia Cobb M.D. PCP - General 02/19/17 02/20/[address] [phone] documented as of this encounter
--- OUTSIDE RECORDS SUMMARY | 2022-07-29 10:44 | XMS_ITS | Encounter Summary ---
:1960 Author Organization [facility] Address [address] [place] [address] Care Team Providers Name Role Phone Cintia Cobb M.D. Primary Care Provider [phone] Reason for Visit Reason Comments Medical Information Encounter Details Date Type Department Care Team Description 07/28/2021 Nurse Triage Department of Family Hanny Cosme, Medical Information Medicine, [facility], in [place] [phone] ([address] [address] Social History Tobacco Use Types Packs/Day Years Used Date Smoking Tobacco: Never Smokeless Tobacco: Never Alcohol Use Standard Drinks/Week Comments No 0 (1 standard drink = 0.6 oz pure alcoho l) Sex Assigned at Date Recorded Not on file documented as of this encounter Miscellaneous Notes Telephone Encounter - Hanny Cosme RKevin. - 07/28/2021 10:57 AM FLEXOGRAPHIC PRESS SET UP OPERATOR Patient calling to see why he shouldn't mix [place] with Tylenol and alcohol. Nurse continued to explain but patient refused recommendations. Stated he's going to continue to do what he's been doing andtake all 6 pain pills with half a bottle of Tylenol and wash it down with [place], all at the same time. This could be life threatening and result in an overdose. Patient refused head of digital recommendation. Note sent to PCP team. Unable to contact patient due to him blocking [facility]. OGRAPHIC PRESS SET UP OPERATOR documented in this encounter Plan of Treatment Not on filedocumented as of this encounter Visit Diagnoses Not on filedocumented in this encounter Additional Health Concerns Assessment Noted Time PHQ-9 Depression Total Score: 18 02/14/2013 9:53 AM CD T documented as of this encounter Care Teams Program Director/Music Director Relationship Specialty Start Date End Date Cintia Cobb M.D. PCP - General 02/19/17 02/20/[id number] [place] [phone] documented as of this encounter
--- OUTSIDE RECORDS SUMMARY | 2022-07-29 10:44 | XMS_ITS | Encounter Summary ---
:1960 Author Organization [facility] Address [address] [place] [address] Care Team Providers Name Role Phone Cintia Cobb M.D. Primary Care Provider [phone] Reason for Visit Reason Comments Medical Information Encounter Details Date Type Department Care Team Description 04/15/2021 Nurse Triage Department of [facility] Ashley Cole Medic al Information Medicine, [facility], in [address] [address] [place], [place] [phone] (Work) [phone] Social History Tobacco Use Types Packs/Day Years Used Date Smoking Tobacco: Never Smokeless Tobacco: Never Alcohol Use Standard Drinks/Week Comments No 0 (1 standard drink = 0.6 oz pure alcoho l) Sex Assigned at Date Recorded Not on file documented as of this encounter Miscellaneous Notes Telephone Encounter - Ashlye Cole R.N. - 04/15/2021 8:21 AM CDT Chief Complaint / Reason for Call Patient is a 60 y.o. male calling regarding Medical Information. Assessment Concern: Patient calls stating that he would like to speak to one of Cintia's nurses. Offered to assist patient and he declines stating that he spoke with the nurse line last week and the nurse was not helpful. Will only speak to care team nurse. Offered to transfer patient to clinic to have a message sent to the care team to call him back and he has the [facility] number blocked. He will try to call back later The recommended disposition is Other. documented in this encounter Plan of Treatment Not on filedocumented as of this encounter Visit Diagnoses Not on filedocumented in this encounter Additional Health Concerns Assessment Noted Time PHQ-9 Depression Total Score: 18 02/14/2013 9:53 AM CD T documented as of this encounter Care Teams Customer Success Associate Relationship Specialty Start Date End Date Cintia Cobb M.D. PCP - General 02/19/17 02/20/[address] [place] [phone] documented as of this encounter
--- OUTSIDE RECORDS SUMMARY | 2022-07-29 10:44 | XMS_ITS | Encounter Summary ---
:1960 Author Organization [facility] Address [address] [place] [address] Care Team Providers Name Role Phone Cintia Cobb M.D. Primary Care Provider [phone] Encounter Details Date Type Department Care Team Description 12/18/2020 Hospital Encounter Department of [place] Anemia; Laboratory Cintia Copeland Gastric Bypa ss Status Post; Medicine in Jose Daniel Piper M.D. 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 1 each 1 each 0 0 11/09/2019 daily. Dx: E11.9. Brand per insurance coverage. calcium carbonate (TUMS) Chew 2 tablets 2 0 500 mg (200 mg calcium) (two) times a day. chewable tablet lancets 1 each daily. Dx: 100 each 11 11/09/2019 E11.9. Brand per insurance coverage. loperamide (IMODIUM A-D) Take 2 mg by mouth 4 0 2 mg capsule (four) times a day as needed for diarrhea. PEDIATRIC MULTIVITAMIN Take 4 tablets by 0 2015 NO.76 (FLINTSTONES mouth daily. COMPLETE ORAL) allopurinoL (ZYLOPRIM) TAKE ONE TABLET BY 90 tablet 3 09/2108/13/2021 300 mg tablet MOUTH DAILY furosemide (LASIX) 40 mg TAKE ONE TABLET BY 90 tablet 3 09/20/2021 tablet MOUTH DAILY omeprazole (PriLOSEC) 20 Take 1 capsule (20 90 capsule 3 12/18/[address] capsule mg total) by mouth every morning before breakfast. documented as of this encounter Plan of Treatment Not on filedocumented as of this encounter Procedures Procedure Name Priority Date/Time Associated Comments Diagnosis LIPID PANEL, S Routine 12/18/2020 7:49 PM Anemia Microc ytic Results for this CDT Hypertension procedure are i n Essential Primar y the results Diabetes Mellitus section. Type 2 With Diabetic Neuropathy (HCC) Hyperlipidemia On Treatment Gastric Bypass Status Post FERRITIN, S Routine 12/18/2020 7:49 PM Anemia Microc ytic Results for this CDT Hypertension procedure are i n Essential Primar y the results Diabetes Mellitus section. Type 2 With Diabetic Neuropathy (HCC) Hyperlipidemia On Treatment Gastric Bypass Status Post VITAMIN B12 ASSAY, S Routine 12/18/2020 7:49 PM Anemia Results for this CDT Gastric Bypass procedure are in Status Post the results section. BASIC METABOLIC Routine 12/18/2020 7:49 PM Anemia Microc ytic Results for this PANEL, S/P CDT Hypertension procedure are i n Essential Primar y the results Diabetes Mellitus section. Type 2 With Diabetic Neuropathy (HCC) Hyperlipidemia On Treatment Gastric Bypass Status Post 25-HYDROXYVITAMIN D2 Routine 12/18/2020 7:48 PM Anemia M icrocytic Results for this AND D3, S CDT Hypertension procedure are i n Essential Primar y the results Diabetes Mellitus section. Type 2 With Diabetic Neuropathy (HCC) Hyperlipidemia On Treatment Gastric Bypass Status Post CBC WITHOUT Routine 12/18/2020 7:48 PM Anemia Microc ytic Results for this DIFFERENTIAL, B CDT Hypertension procedure ar e in Essential Primar y the results Diabetes Mellitus section. Type 2 With Diabetic Neuropathy (HCC) Hyperlipidemia On Treatment Gastric Bypass Status Post HEMOGLOBIN A1C, B Routine 12/18/2020 7:48 PM Anemia Micr ocytic Results for this CDT Hypertension procedure are i n Essential Primar y the results Diabetes Mellitus section. Type 2 With Diabetic Neuropathy (HCC) Hyperlipidemia On Treatment Gastric Bypass Status Post documented in this encounter Results (ABNORMAL) Ferritin (12/18/2020 7:49 PM CDT) athologist Signature Ferritin, S 18 (L) 31 - 409 12/19/2020 [facility] mcg/L 1:47 PM CDT Comment: Biotin has been identified by the [facility] as a potential interfering substance. ??Higher concentr ations of biotin may be found in multivitamins, hair/nail supple ments, and workout supplements. ??If the result does not [facility] clinical observations, repeat testing after patient refrains fr om the use of supplements for at least 12 hours. Specimen Anatomical Collection Method Collection Time Receive d Time (Source) Location / / Volume Laterality Blood (Blood, 12/18/2020 7:49 PM 12/20/19 21 Venous) CDT 12:42 PM CDT Cintia Coepland M.D. LAB BLOOD ADD-ON Performing Organization Address City/State/ZIP Code Phon e Number [facility]- [address] [place], [place] [address] [address] [facility] [place] [address] System in [place] [address] Lipid Panel (12/18/2020 7:49 PM CDT) athologist Signature Cholesterol, 133 mg/dL 12/18/2020 CNFL Total 8:31 PM CDT Comment: ----REFERENCE VALUE---- Desirable: < 200 Borderline high: 200 - 239 High: > or = 240 Triglycerides 60 mg/dL 12/18/2020 8:31 PM CDT CNF L Comment: ----REFERENCE VALUE---- Normal: <150 Borderline high: 150-199 High: 200-499 Very high: > or =500 Cholesterol, HDL 60 >=40 mg/dL 12/18/2020 8:31 PM CDT CNFL Calculated LDL 61 mg/dL 12/18/2020 8:31 PM CDT CN FL Comment: ----REFERENCE VALUE---- Desirable: <100 Above Desirable: 100-129 Borderline high: 130-159 High: 160-189 Very high: > or =190 Cholesterol, Non-HDL, Calculated 73 mg/dL 021 8:31 PM CDT CNFL Comment: ----REFERENCE VALUE---- Desirable: <130 Above Desirable: 130-159 Borderline high: 160-189 High: 190-219 Very high: > or =220 Specimen Anatomical Collection Method Collection Time Receive d Time (Source) Location / / Volume Laterality Blood (Blood, 12/18/2020 7:49 PM 12/19/19 8:07 Venous) CDT PM CDT Cintia Copeland M.D. LAB BLOOD ADD-ON Performing Organization Address City/State/[facility] Code Phon e Number [phone] [place] [address] [place] [address] (ABNORMAL) Basic Metabolic Panel (12/18/2020 7:49 PM CDT) P athologist Signature Potassium, P 4.3 3.6 - 5.2 12/18/2020 CNFL mmol/L 8:31 PM CDT Sodium, P 138 135 - 145 12/18/2020 CNFL mmol/L 8:31 PM CDT Chloride, P 105 98 - 107 12/18/2020 CNFL mmol/L 8:31 PM CDT Bicarbonate, P 26 22 - 29 12/18/2020 CNFL mmol/L 8:31 PM CDT Anion Gap, P 7 7 - 15 12/18/2020 CNFL 8:31 PM CDT BUN (Blood Urea 30 (H) 8 - 24 12/18/2020 CNFL Nitrogen), P mg/dL 8:31 PM CDT Creatinine 0.91 0.74 - 12/18/2020 CNFL 1.35 mg/dL 8:31 PM CDT eGFR-Black/Afri >90 >=60 12/18/2020 CNFL can Niuean mL/min/BSA 8:31 PM CDT Comment: ----ADDITIONAL INFORMATION---- Estimated GFR calculated using the 2009 CKD_EPI creatinine equation. eGFR Non-Black/ >90 >=60 mL/min/BSA 12/18/2020 8:31 PM CDT CNFL Comment: ----ADDITIONAL INFORMATION---- Estimated GFR calculated using the 2009 CKD_EPI creatinine equation. Calcium, Total, P 9.1 8.8 - 10.2 mg/dL 12/18/2020 8:31 PM CDT CNFL Glucose, P 110 70 - 140 mg/dL 12/18/2020 8:31 PM CDT C NFL Specimen Anatomical Collection Method Collection Time Receive d Time (Source) Location / / Volume Laterality Blood (Blood, 12/18/2020 7:49 PM 12/19/19 8:07 Venous) CDT PM CDT Cintia Copeland M.D. LAB BLOOD ADD-ON Performing Organization Address City/State/ZIP Code Phon e Number [facility]- [address] [place] [phone] [place] [address] [place] [address] (ABNORMAL) Vitamin B12 Assay (12/18/2020 7:49 PM CDT) Analysis Performed At Patho logist Time Signature Vitamin B12 >2000 (H) 232 - 1245 12/19/2020 ECLR Assay, S ng/L 4:15 PM CDT Comment: Biotin has been identified by the [facility] as a potential interfering substance. ??Higher concentr ations of biotin may be found in multivitamins, hair/nail supple ments, and workout supplements. ??If the result does not [facility] clinical observations, repeat testing after patient refrains fr om the use of supplements for at least 12 hours. Specimen Anatomical Collection Method Collection Time Receive d Time (Source) Location / / Volume Laterality Blood (Blood, 12/18/2020 7:49 PM 12/20/19 21 2:59 Venous) CDT PM CDT Cintia Copeland M.D. LAB BLOOD ADD-ON Performing Organization Address City/[facility] Phon e Number [facility]- [address] [place] [phone] [facility] [place] [address] System in [address] (ABNORMAL) CBC without Differential (12/18/2020 7:48 PM CDT) [facility] gist Method Time Signature Hemoglobin 8.0 (L) 13.2 - 12/18/2020 CNFL 16.6 g/dL 8:22 PM CDT Hematocrit 27.7 (L) 38.3 - 12/18/2020 CNFL 48.6 % 8:22 PM CDT Erythrocytes 3.39 (L) 4.35 - 12/18/2020 CNFL 5.65 8:22 PM CDT x10(12)/L MCV 81.7 78.2 - 12/18/2020 CNFL 97.9 fL 8:22 PM CDT RBC Distrib Width 16.2 (H) 11.8 - 12/18/2020 CNFL 14.5 % 8:22 PM CDT Platelet Count 234 135 - 317 12/18/2020 CNFL x10(9)/L 8:22 PM CDT Leukocytes 6.5 3.4 - 9.6 12/18/2020 CNFL x10(9)/L 8:22 PM CDT Specimen Anatomical Collection Method Collection Time Receive d Time (Source) Location / / Volume Laterality Blood (Blood, 12/18/2020 7:48 PM 12/19/19 21 8:07 Venous) CDT PM CDT Cintia Copeland M.D. LAB BLOOD ADD-ON Performing Organization Address City/State/ZIP Code Phon e Number [facility]- [address] [place] [address] [place] [address] [place] [address] Hemoglobin A1c (12/18/2020 7:48 PM CDT) athologist Signature Hemoglobin A1c, 5.3 4.2 - 5.6 12/18/2020 CNFL B % 8:33 PM CDT Specimen Anatomical Collection Method Collection Time Receive d Time (Source) Location / / Volume Laterality Blood (Blood, 12/18/2020 7:48 PM 12/19/19 8:07 Venous) CDT PM CDT Cintia Copeland M.D. LAB BLOOD ADD-ON Performing Organization Address City/[facility]/ZIP Code Phon e Number [address] [phone] [place] [address] System in [place] [address] [address] 25-Hydroxyvitamin D2 and D3 (12/18/2020 7:48 PM CDT) athologist Signature 25-Hydroxy D2 <4.0 ng/mL 12/21/2020 SDSC 7:40 PM CDT 25-Hydroxy D3 51 ng/mL 12/21/2020 SDSC 7:40 PM CDT 25-Hydroxy D 51 ng/mL 12/21/2020 [facility] Total 7:40 PM CDT Comment: Interpretation: 51-80 ng/mL (increased r isk of hypercalciuria) ----REFERENCE VALUE---- 25-HYDROXY D TOTAL (D2+D3) Optimum level s in the healthy population are 20-50, patients with bone disease may benefit from higher levels within this r vivienne. ----ADDITIONAL INFORMATION---- This test was developed and its performa nce characteristics determined by [facility] in a manner consistent with CLIA requirements. This test has not been cleared or approved by the [place] and Drug Administration. Specimen Anatomical Collection Method Collection Time Receive d Time (Source) Location / / Volume Laterality Blood (Blood, 12/18/2020 7:48 PM 12/21/19 7:59 Venous) CDT AM CDT Cintia Copeland M.D. LAB BLOOD ADD-ON Performing Organization Address City/State/ZIP Code Phon e Number [facility] [address] [address] [place], [place] [address] [facility] [place] [address] Laboratory Medicine and Pathology [address] 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 PCP - General 02/19/17 02/20/[address] [place] [phone] documented as of this encounter
--- OUTSIDE RECORDS SUMMARY | 2022-07-29 10:44 | XMS_ITS | Encounter Summary ---
:1960 Author Organization [facility] Address [address] [place] [address] Care Team Providers Name Role Phone Cintia Cobb M.D. Primary Care Provider [phone] Reason for Visit Reason Comments Gabapentin question Encounter Details Date Type Department Care Team Description 03/18/2021 Clinical Department [facility] [place] [facility], in [address] [address] [place], [place] [phone] (Work) [phone] Social History Tobacco Use Types Packs/Day Years Used Date Smoking Tobacco: Never Smokeless Tobacco: Never Alcohol Use Standard Drinks/Week Comments No 0 (1 standard drink = 0.6 oz pure alcoho l) Sex Assigned at Date Recorded Not on file documented as of this encounter Miscellaneous Notes Telephone Encounter - Estrella Haji L.P.N. - 03/21/2021 10:16 AM CDT Patient contacted in another another encounter with generic voicemail left. See notes from 03/12/[address] message [address] Dr[address] Song that also needs to be relayed to patient. Telephone Encounter - Cintia Cobb M.D. - 03/20/2021 4:15 PM CDT Please let patient know that gabapentin can [...] days until heis off of the medication. Thanks, Cintia Telephone Encounter - Bella Amezquita L.P.N. - 03/18/2021 4:18 PM CDT Information Discussed Patient called and wanted to know why he is gaining weight after taking Gabapentin when the providerand nurse had told him that it would not cause weight gain. Patient states that he hardly eats and has gone from 160lbs to over 200lbs since adding this medication and has pain in his knees and has begun to sweat a lot more. States his blood sugars are normal, has had shortness of breath since having the pacemaker placed, and has occasional lower extremity edema on days that he is standing or workinga lot. Patient refused to make an appointment until after he hears a recommendation from Citnia Copeland M.D. Patient states that the best way to contact him is to call his wifes phone and leave a message on there. PLAN Disposition/Recommendation: recommended continue engagement in self-management activities Information/Education: patient/caller able to teach back Caller agreeable to plan of care: yes The following references were used: nursing clinical judgement Telephone Encounter - Bella Ameqzuita L.P.N. - 03/18/2021 3:18 PM CDT Attempted to contact patient. No answer. Left generic message for a call back. Telephone Encounter - Shanice Ferguson - 03/18/2021 3:03 PM CDT Pt called in. Nurse not available. He will call back. Telephone Encounter - Shanice Ferguson - 03/18/2021 1:52 PM CDT Pt called in. He will call back. Telephone Encounter - Malka Saavedra - 03/18/2021 1:08 PM CDT Pt calling again. Pt stated he will call back. Telephone Encounter - Shanice Ferguson - 03/18/2021 12:35 PM CDT Pt called back. Nurse not available. He stated that he will call back again later. Telephone Encounter - Viviana Osorio - 03/18/2021 10:48 AM CDT Pt is calling back, same thing with Viola, didn't want to give much info but said he will keep calling back. I said it would be faster if he were to give us a number to call but he refused and said our number is blocked. He is asking for Preethi. Thank you. Telephone Encounter - Malka Saavedra - 03/18/2021 9:08 AM CDT Pt called again trying to reach Dr. Song's nurse regarding personal matters. Pt will try back again today. Telephone Encounter - Viola Ferrer - 03/18/2021 8:09 AM CDT Reason for Communication: Patient said he wants to speak to Preethi. He would not give me a reason and said that it was confidential. When I tried to pull up his info, he didn't want to give me the year that he was born. When I asked for the best phone number, he wouldn't give it to me and told me that he has Ch[facility] blocked and that he would have to call back. So, I told him that I would not send a msgback if he was going to call back, but he wanted me to send the msg anyway. Current Phone Number: ??? Can Nursing/Provider leave a detailed message?: Did the patient refuse triage through Nurse line? (for symptom based concerns): Action Needed: FYI Name of Medication (if relevant): documented in this encounter Plan of Treatment Not on filedocumented as of this encounter Visit Diagnoses Not on filedocumented in this encounter Additional Health Concerns Assessment Noted Time PHQ-9 Depression Total Score: 18 02/14/2013 9:53 AM CD T documented as of this encounter Care Teams Internal Audit Manager Relationship Specialty Start Date End Date Cintia Cobb M.D. PCP - General 02/19/17 02/20/[address] [place] [phone] documented as of this encounter
--- OUTSIDE RECORDS SUMMARY | 2022-07-29 10:45 | XMS_ITS | Encounter Summary ---
:1960 Author Organization [facility] Address [address] [place] [address] Care Team Providers Name Role Phone Cintia Cobb M.D. Primary Care Provider [phone] Encounter Details Date Type Department Care Team Description 04/12/2020 Orders Only Department of Kacie Huerta, Primary Ost eoarthritis Orthopedic Surgery in [facility], C.N.P., Lumba r Spine (Primary [place], [place] D.N.P. Dx) [address] [phone] Social History Tobacco Use Types Packs/Day Years Used Date Smoking Tobacco: Never Smokeless Tobacco: Never Alcohol Use Standard Drinks/Week Comments No 0 (1 standard drink = 0.6 oz pure alcoho l) Sex Assigned at Date Recorded Not on file documented as of this encounter Plan of Treatment Not on filedocumented as of this encounter Visit Diagnoses Diagnosis Primary Osteoarthritis Lumbar Spine - Pr imary documented in this encounter Additional Health Concerns Assessment Noted Time PHQ-9 Depression Total Score: 18 02/14/2013 9:53 AM CD T documented as of this encounter Care Teams Manager Department Relationship Specialty Start Date End Date Cintia Cobb M.D. PCP - General 02/19/17 02/20/[id number] [place] [phone] documented as of this encounter
--- OUTSIDE RECORDS SUMMARY | 2022-07-29 10:45 | XMS_ITS | Encounter Summary ---
:1960 Author Organization [facility] Address [address] [place] [address] Care Team Providers Name Role Phone Cintia Cobb M.D. Primary Care Provider [phone] Reason for Referral MRI/CAT/PET Scan (Routine) - Closed Specialty Diagnoses / Procedures Referred By Contact Refer red To Contact Radiology Diagnoses Pain Hip Left Kacie Huerta APRN, [facility] Region Procedures CT Hip Left without IV Contrast C.N.P., D.N.P. [address] [place] [phone] Referral ID Status Reason Start Date Expiration Date Visits Requ ested Visits Authorized [id number] Closed 08/22/2020 08/22/2021 1 1 TIC PARTS FABRICATOR Reason for Visit MRI/CAT/PET Scan (Routine) - Closed Specialty Diagnoses / Procedures Referred By Contact Refer red To Contact Radiology Diagnoses Pain Hip Left Kacie Huerta APRN, [facility] [place] Region Procedures CT Hip Left without IV Contrast C.N.P., D.N.P. [address] [place] [phone] Referral ID Status Reason Start Date Expiration Date Visits Requ ested Visits Authorized [id number] Closed 08/22/2020 08/22/2021 1 1 Encounter Details Date Type Department Care Team Description 08/30/2020 Hospital Encounter Department of Radiology Albert Huertaeric devon Oakes, Pain Hip Left in [place], [place], C.N.P., [place] D.N.P. [address] [place] [phone] Social History Tobacco Use Types Packs/Day [...] 2015 NO.76 (FLINTSTONES mouth daily. COMPLETE ORAL) alendronate (FOSAMAX) 70 Take 1 tablet (70 mg 12 tablet 3 0 11/19/2019 11/18/2020 mg tablet total) by mouth once a week. Take with 8oz of water, on an empty stomach. Remain upright for 30min. allopurinoL (ZYLOPRIM) TAKE ONE TABLET BY 90 tablet 3 09/1909/21/2020 300 mg tablet MOUTH DAILY foam bandage (Mepilex) 4 Apply 1 each 10 each 11 0 12/18/2020 X 4 bandage topically every 3 (three) days. furosemide (LASIX) 40 mg TAKE ONE TABLET BY 90 tablet 3 09/21/2020 tablet MOUTH DAILY omeprazole (PriLOSEC) 20 Take 1 capsule (20 90 capsule 3 11/201911/21/[address] capsule mg total) by mouth every morning before breakfast. tamsulosin (FLOMAX) 0.4 TAKE ONE CAPSULE BY 90 capsule 3 09/21/2020 mg 24 hr capsule MOUTH ONCE DAILY documented as of this encounter Plan of Treatment Not on filedocumented as of this encounter Procedures Procedure Name Priority Date/Time Associated Comments Diagnosis CT HIP LEFT RAD - Routine 08/30/2020 1:21 Pain Hip Left Results fo r this WITHOUT IV (most inpatients PM PLASTIC PARTS FABRICATOR procedure a re in CONTRAST and all the results outpatients) section. documented in this encounter Results CT Hip Left without IV Contrast (08/30/2020 1:21 PM PLASTIC PARTS FABRICATOR) Anatomical Region Laterality Modality Lower Extremity, Hip, Musculoskeletal RST LOS, Left Computed Tomography Musculoskeletal ARZ LOS, Muskuloskeletal FLA LOS Specimen (Source) Anatomical Collection Method Collection Time Re ceived Time Location / / Volume Laterality 08/30/2020 1:33 PM PLASTIC PARTS FABRICATOR Impressions 08/30/2020 1:38 PM PLASTIC PARTS FABRICATOR Intramedullary ovidio and screw fixation across a healed intertrochanteric fracture of the left f emur; hardware appears well seated by CT. Mild left hip joint effusion and/or synovitis. Narrative 08/30/2020 1:38 PM PLASTIC PARTS FABRICATOR EXAM: CT HIP LEFT WITHOUT IV CONTRAST COMPARISON: Radiographs 08/07/2020 FINDINGS: Intramedullary ovidio and proxima l and distal screw fixation across the healed intertrochanteric fracture of the left femur. Hardware appears well seated without radiographic evidence of loosening. Mild heterotopic ossification about the superior aspect of the intrame dullary ovidio. No new fracture. Osteopenia. Moderate narrowing of the po sterior left hip joint. Arterial calcifications. Shotty inguinal lymph no bong. Procedure Note Hai Cotto M.D. - 08/30/2020Formatt ing of this note might be different from the original. EXAM: CT HIP LEFT WITHOUT IV CONTRAST COMPARISON: Radiographs 08/07/2020 FINDINGS: Intramedullary ovidio and proxima l and distal screw fixation across the healed intertrochanteric fracture of the left femur. Hardware appears well seated without radiographic evidence of loosening. Mild heterotopic ossification about the superior aspect of the intrame dullary ovidio. No new fracture. Osteopenia. Moderate narrowing of the po sterior left hip joint. Arterial calcifications. Shotty inguinal lymph no bong. IMPRESSION: Intramedullary ovidio and screw fixation ac ross a healed intertrochanteric fracture of the left f emur; hardware appears well seated by CT. Mild left hip joint effusion and/or synovitis. Kacie Huerta APRN, C.N.P., D.N.P. IMG CT PROCEDURES documented in this encounter Visit Diagnoses Diagnosis Pain Hip Left documented in this encounter Additional Health Concerns Assessment Noted Time PHQ-9 Depression Total Score: 18 02/14/2013 9:53 AM CD T documented as of this encounter Care Teams Manufacturing Weaver Relationship Specialty Start Date End Date Cintia Cobb M.D. PCP - General 02/19/17 02/20/[address] [place] [phone] documented as of this encounter
--- OUTSIDE RECORDS SUMMARY | 2022-07-29 10:45 | XMS_ITS | Encounter Summary ---
:1960 Author Organization [facility] Address [address] [place] [address] Care Team Providers Name Role Phone Cintia Cobb M.D. Primary Care Provider [phone] Encounter Details Date Type Department Care Team Description 09/05/2020 Clinical Communication Department of Kacie Huerta, Orthopedic Surgery in [facility] [place], [place] D.N.P. [address] [phone] Social History Tobacco Use Types Packs/Day Years Used Date Smoking Tobacco: Never Smokeless Tobacco: Never Alcohol Use Standard Drinks/Week Comments No 0 (1 standard drink = 0.6 oz pure alcoho l) Sex Assigned at Date Recorded Not on file documented as of this encounter Miscellaneous Notes Telephone Encounter - Suzie Quan R.N. - 09/05/2020 3:04 PM SUPERVISOR ACCOUNTING CLERKS Spoke with Magali, patients . She will call at her convenience to schedule an appointment with Kacie to review Ed's CT scans. RVISOR ACCOUNTING CLERKS Telephone Encounter - Suzie Quan R.N. - 09/05/2020 3:03 PM SUPERVISOR ACCOUNTING [employer]ERKS ----- Message from Kacie Huerta APRN, C.NPiliPPili, D.N.P. sent at 09/05/2020 10:11 AM SUPERVISOR ACCOUNTING CLERKS ----- Can we schedule a follow up to review CT scans? No hurry. Thanks RVISOR ACCOUNTING CLERKS documented in this encounter Plan of Treatment Not on filedocumented as of this encounter Visit Diagnoses Not on filedocumented in this encounter Additional Health Concerns Assessment Noted Time PHQ-9 Depression Total Score: 18 02/14/2013 9:53 AM CD T documented as of this encounter Care Teams Engineer Conductor Relationship Specialty Start Date End Date Cintia Cobb M.D. PCP - General 02/19/17 02/20/[address] [place] [phone] documented as of this encounter
--- OUTSIDE RECORDS SUMMARY | 2022-07-29 10:45 | XMS_ITS | Encounter Summary ---
:1960 Author Organization [facility] Address [address] [place] [address] Care Team Providers Name Role Phone Cintia Cobb M.D. Primary Care Provider [phone] Reason for Visit Reason Comments D5 and Colon Screen Encounter Details Date Type Department Care Team Description 10/09/2020 Clinical Department of [place] D5 and Colon S creen Communication Family MedicineMin [facility] [place] [facility], M.D[facility], in [address] [address] [place], [place] [phone] (Work) [phone] Social History Tobacco Use Types Packs/Day Years Used Date Smoking Tobacco: Never Smokeless Tobacco: Never Alcohol Use Standard Drinks/Week Comments No 0 (1 standard drink = 0.6 oz pure alcoho l) Sex Assigned at Date Recorded Not on file documented as of this encounter Miscellaneous Notes Telephone Encounter - Xochitl Hackett L.PPiliN. - 10/09/2020 7:48 AM AWNING MAKER AND INSTALLER In reviewing the patient's diabetic quality metrics, I have found that the patient is not meeting all of their goals. BP control not met, A1C control not met, Patient is not on Statin medication and LDL goal not met and Tobacco use due for assessment Orders are not entered. Patient has appointment with Dr. Song on 10/09/20. Will address BOTH colon screen being due and his D5 quality measures not met. (BR) NG MAKER AND INSTALLER documented in this encounter Plan of Treatment Not on filedocumented as of this encounter Visit Diagnoses Not on filedocumented in this encounter Additional Health Concerns Assessment Noted Time PHQ-9 Depression Total Score: 18 02/14/2013 9:53 AM CD T documented as of this encounter Care Teams Rehabilitation Services Coordinator Relationship Specialty Start Date End Date Cintia Cobb M.D. PCP - General 02/19/17 02/20/[address] [place] [phone] documented as of this encounter
--- OUTSIDE RECORDS SUMMARY | 2022-07-29 10:45 | XMS_ITS | Encounter Summary ---
:1960 Author Organization [facility] Address [address] [place] [address] Care Team Providers Name Role Phone Cintia Cobb M.D. Primary Care Provider [phone] Reason for Referral Outpatient (Routine) - Closed Specialty Diagnoses / Procedures Referred By Contact Refer red To Contact Pain Medicine Diagnoses Spondylitis (HCC) Kacie Huerta APRN, [facility] [place] [facility] C.N.P., D.N.P. [address] [place] [phone] Referral ID Status Reason Start Date Expiration Date Visits V isits Requested Authorized [id number] Closed Specialty 10/30/2020 10/30/2021 1 1 Services Required utpatient (Routine) - Closed Specialty Diagnoses / Procedures Referred By Contact Refer red To Contact Diagnoses Primary Osteoarthritis Knee Left Kacie Huerta APRN, [facility] Procedures dzf-otsh-qkjxlcve-elbow arthrocentesis: L knee joint C.N.P., D.N.P. [address] [place] [phone] Referral ID Status Reason Start Date Expiration Date Visits Requ ested Visits Authorized [id number] Closed 10/30/2020 10/30/2021 1 1 Reason for Visit Reason Comments Follow-up CT Results Pain Outpatient (Routine) - Closed Specialty Diagnoses / Procedures Referred By Contact Refer red To Contact Orthopedic Surgery Kacie Huerta, [place], [facility] [place], FidelN.PPili [address] [place] [phone] Referral ID Status Reason Start Date Expiration Date Visits Requ ested Visits Authorized [id number] Closed 08/22/2020 08/22/2021 1 1 Encounter Details Date Type Department Care Team Description 10/30/2020 Office Visit Department of Kacie Huerta, Primary Ost eoarthritis Knee Left (Primary Dx); Orthopedic Surgery in [place], Spond ylitis ([facility]) Jose Daniel Dean D.N.P. [address] [phone] Social History Tobacco Use Types Packs/Day Years Used Date Smoking Tobacco: Never Smokeless Tobacco: Never Alcohol Use Standard Drinks/Week Comments No 0 (1 standard drink = 0.6 oz pure alcoho l) Sex Assigned at Date Recorded Not on file documented as of this encounter Progress Notes Kacie Huerta, Kelvin PALACIONEricka, Terri.N.P. - 10/30/2020 8:00 AM CST And is a 60-year-old male who comes in today for follow-up of his left lateral hip and leg pain. He also would like to discuss his knee pain. He also would like to discuss his left knee pain. He did have a CT scan of his hip which demonstrates healing of his intratrochanteric fracture with no failure ovidio and screw. He continues to note an occasional click in his left hip. He denies any numbness or tingling of his lower leg but does have pain that radiates down the lateral portion of his hip. He alsodescribes pain in his knee with weight- bearing and occasional feeling of instability in the medial aspect of his knee. He does not wish to proceed with knee surgery at this time. Left knee with full extension and flexion to 120??. Knee is stable to valgus and varus. Mild effusion is noted. He does have some pain in the medial joint line that is significant when compared to the contralateral side. Diagnostic studies-CT of lumbar spine shows Spondylotic changes, as detailed level by level, includes moderate to severe spinal canal narrowing at L3-L4 and moderate foraminal/extraforaminal narrowing on the left at L5-S1. CT of left hip shows Intramedullary ovidio and screw fixation across a healed intertrochanteric fracture of the left femur; hardware appears well seated by CT. Mild left hip joint effusion and/or synovitis. Impression and plan- Ed is a 60-year-old who is having left leg pain given his symptoms and severityof spondylitic changes with severe spinal canal narrowing at L3-4 and L5-S1 I believe most of his symptoms are stemming from his back. Will set him up for a consultation with Dr. Gonzalez. If patient requires surgery he will not be able to do this in [place]. In regard to his knee I did discuss there may possibly be a medial meniscal tear but at this time he would not wish to proceed with surgery. Instead will take more of a conservative approach and inject with corticosteroids. Patient wishes to proceed. After brief discussion, consent form was obtained, per sterile technique, using a small amount of 1% lidocaine and 60 mg of Kenalog was injected into his left knee using the lateral approach and patient tolerated the procedure well. We did discuss therapy for his knee also however he wishes to hold off on this. He will give this at least 4-6 weeks to find improvement in his knee and if not would proceed with an MRI of his left knee as he may consider surgery at that time. Patient agrees with this plan. Questions were answered documented in this encounter Procedure Notes Loly Betts L.P.N. - 10/30/2020 8:00 AM CSTAssociated Order(s): lbe-jsom-wolchvko-elbow arthrocentesis: L knee joint Post-Procedure Diagnose(s): Primary Osteoarthritis Knee Left Knee site- L knee joint : injection only Date/Time: 10/30/2020 8:00 AM Performed by: Kacie Huerta APRN, C.N.PPili, D.NPiliP. Authorized by: Kacie Huerta APRN C.N.PPili, D.N.P. PROCEDURE DETAILS Procedure Location knee Knee site: L knee joint Site prep: patient was prepped and draped in usual sterile fashion Procedural approach: anterolateral Procedure performed: injection only Needle gauge: 22 G Procedural Medication The following medications were administered at the target site(s) Local anesthetic: 3 mL lidocaine 10 mg/mL (1 %) Corticosteroid: 60 mg triamcinolone acetonide 40 mg/mL CONSENT Consent obtained: written PRE-PROCEDURE DETAILS Procedure purpose: therapeutic and diagnostic Indications: left knee pain Skin preparation: povidone-iodine SEDATION / ANESTHESIA Anesthesia method: none POST-PROCEDURE DETAILS Procedure completed successfully: yes Complications: no apparent complications Discharge instructions: dressing care and follow-up with ordering provider documented in this encounter Plan of Treatment Scheduled Referrals Name Type Priority Associated Diagnoses Order S chedule Pain Medicine - Outpatient Referral Routine Spondylitis (HCC) Expected: General consult 10/30/2020 (clinic) (Approximate), Expires: 10/30/2023 documented as of this encounter Procedures Procedure Name Priority Date/Time Associated Diagnosis Comme nts AR ARTHCS ASP/INJ Routine 10/30/2020 8:00 AM Primary Osteoarth ritis Results for this MJR JT WO US GTA Knee Left procedure are i n the results section. documented in this encounter Results AR ARTHCS ASP/INJ MJR JT WO US (10/30/2020 8:00 AM GTA) Narrative MMODAL - 10/30/2020 8:00 AM GTA Loly Betts L.P.N. ? 10/31/2020 ??3:30 AM Knee site- L knee joint : injection only Date/Time: 10/30/2020 8:00 AM Performed by: Kacie Huerta APRN, C.N. PPili, D.N.P. Authorized by: Kacie Huerta APRN C.N .PPili, D.N.P. PROCEDURE DETAILS Procedure Location knee Knee site: L knee joint Site prep: patient was prepped and drape d in usual sterile fashion ?? Procedural approach: anterolateral Procedure performed: injection only Needle gauge: 22 G Procedural Medication The following medications were administe red at the target site(s) Local anesthetic: 3 mL lidocaine 10 mg/m L (1 %) Corticosteroid: 60 mg triamcinolone acet onide 40 mg/mL CONSENT Consent obtained: written PRE-PROCEDURE DETAILS Procedure purpose: therapeutic and diagn ostic Indications: left knee pain Skin preparation: povidone-iodine SEDATION / ANESTHESIA Anesthesia method: none POST-PROCEDURE DETAILS Procedure completed successfully: yes Complications: no apparent complications ?? Discharge instructions: dressing care an d follow-up with ordering provider Kacie Huerta APRN, C.N.PPili, D.N.P. PROCEDURE/MINOR GEE GICAL ORDERABLES Performing Organization Address City/State/ZIP Code Phon e Number MMODAL MMODAL NA documented in this encounter Visit Diagnoses Diagnosis Primary Osteoarthritis Knee Left - Prima ry Spondylitis (HCC) documented in this encounter Administered Medications Inactive Administered Medications - up to 3 most recent administrations Medication Order MAR Action Action Date Dose Rate Site lidocaine 10 mg/mL (1 %) injection 3 Given 10/30/2020 8:00 AM CS T 3 mL mL (XYLOCAINE) 3 mL, infiltration, One-Time Injection, Starting on Thu10/30/20 at 0800, For 1 dose triamcinolone acetonide injection 60 mg Given 10/30/2020 8:00 AM GTA 60 mg (KENALOG-40) 60 mg, intra-articular, One-Time Injection, Starting on Thu10/30/20 at 0800, For 1 dose documented in this encounter Additional Health Concerns Assessment Noted Time PHQ-9 Depression Total Score: 18 02/14/2013 9:53 AM CD T documented as of this encounter Care Teams Clinical Material Handler Relationship Specialty Start Date End Date Cintia Cobb M.D. PCP - General 02/19/17 02/20/[address] [phone] documented as of this encounter
--- OUTSIDE RECORDS SUMMARY | 2022-07-29 10:45 | XMS_ITS | Encounter Summary ---
:1960 Author Organization [facility] Address [address] [place] [address] Care Team Providers Name Role Phone Cintia Cobb M.D. Primary Care Provider [phone] Reason for Visit Reason Comments Med Refill Encounter Details Date Type Department Care Team Description 11/20/2020 Refill Department of [facility] Angélica Cobb Med Refill Medicine, Jose Daniel Piper M.D. Clinic, in [address] [address] [place], [place] [address] [phone] Social History Tobacco Use Types Packs/Day Years [...] documented as of this encounter Care Teams Bread Room Hand Relationship Specialty Start Date End Date Cintia Cobb M.D. PCP - General 02/19/17 02/20/[address] [place] [phone] documented as of this encounter
--- OUTSIDE RECORDS SUMMARY | 2022-07-29 10:45 | XMS_ITS | Encounter Summary ---
:1960 Author Organization [facility] Address [address] [place] [address] Care Team Providers Name Role Phone Cintia Cobb M.D. Primary Care Provider [phone] Reason for Referral MRI/CAT/PET Scan (Routine) - Closed Specialty Diagnoses / Procedures Referred By Contact Refer red To Contact Radiology Diagnoses Pain Low Back Unspecified Kacie Huerta APRN, [facility] [place] [facility] Procedures CT Lumbar Spine without IV Contrast C.N.P., D.N.P. [address] [place] [phone] Referral ID Status Reason Start Date Expiration Date Visits Requ ested Visits Authorized [id number] Closed 08/22/2020 08/22/2021 1 1 TS ANCHOR Reason for Visit MRI/CAT/PET Scan (Routine) - Closed Specialty Diagnoses / Procedures Referred By Contact Refer red To Contact Radiology Diagnoses Pain Low Back Unspecified [facility] [place] [facility] Procedures CT Lumbar Spine without IV Contrast C.N.P., D.N.P. [address] [place] [phone] Referral ID Status Reason Start Date Expiration Date Visits Requ ested Visits Authorized [id number] Closed 08/22/2020 08/22/2021 1 1 Encounter Details Date Type Department Care Team Description 08/30/2020 Hospital Encounter Department of Radiology Otf Huerta, Pain Low Back in [place], HAKEEM, C.N.P., [place] D.N.P. [address] [phone] Social History Tobacco Use Types Packs/Day [...] Name Priority Date/Time Associated Comments Diagnosis CT LUMBAR SPINE RAD - Routine 08/30/2020 1:14 Pain Low Back Results for this WITHOUT IV (most inpatients PM SPORTS ANCHOR procedure a re in CONTRAST and all the results outpatients) section. documented in this encounter Results CT Lumbar Spine without IV Contrast (08/30/2020 1:14 PM SPORTS ANCHOR) Anatomical Region Laterality Modality Lumbar Spine, Neuroradiology RST LOS, Neuroradiology N/A Computed Tomography ARZ LOS, Neuroradiology FLA [facility] Specimen (Source) Anatomical Collection Method Collection Time Re ceived Time Location / / Volume Laterality 08/30/2020 1:24 PM SPORTS ANCHOR Impressions 08/30/2020 1:32 PM SPORTS ANCHOR Spondylotic changes, as detailed level by level, includes moderate to severe spinal canal narrowing at L3-L 4 and moderate foraminal/extraforaminal narrowing on the left at L5-S1. Narrative 08/30/2020 1:32 PM SPORTS ANCHOR EXAM: CT LUMBAR SPINE WITHOUT IV CONTRAST COMPARISON: 04/21/2018 FINDINGS: 5 lumbar type vertebral bodies are assumed. No acute fracture by CT. Osteopenia. L1-L2: No spinal canal or neural foramin al narrowing. L2-L3: Mild narrowing of spinal canal re lated to mild facet degeneration and minimal disc bulge. No neural foraminal narrowing. L3-L4: Moderate to severe spinal canal n arrowing related to mild disc bulge with endplate spurring, congenitally narrow c anal, mild left-sided facet arthropathy. No neural foraminal narrowing. L4-L5: Mild/moderate narrowing of spinal canal related to moderate disc bulge with endplate spurs/ossification and con genitally narrow canal. Mild/moderate narrowing of bilateral neural foramina r elated to facet hypertrophy. L5-S1: Moderate foraminal narrowing on t he left related to foraminal and extraforaminal disc bulge/osteophytosis (series 9, image 19). Mild right foraminal narrowing. Mild narrowing of s tori canal related to broad-based disc bulge. Other: Atherosclerotic calcifications. Procedure Note Hai Cotto M.D. - 08/30/2020Formatt ing of this note might be different from the original. EXAM: CT LUMBAR SPINE WITHOUT IV CONTRAS T COMPARISON: 04/21/2018 FINDINGS: 5 lumbar type vertebral bodies are assumed. No acute fracture by CT. Osteopenia. L1-L2: No spinal canal or neural foramin al narrowing. L2-L3: Mild narrowing of spinal canal re lated to mild facet degeneration and minimal disc bulge. No neural foraminal narrowing. L3-L4: Moderate to severe spinal canal n arrowing related to mild disc bulge with endplate spurring, congenitally narrow c anal, mild left-sided facet arthropathy. No neural foraminal narrowing. L4-L5: Mild/moderate narrowing of spinal canal related to moderate disc bulge with endplate spurs/ossification and con genitally narrow canal. Mild/moderate narrowing of bilateral neural foramina r elated to facet hypertrophy. L5-S1: Moderate foraminal narrowing on t he left related to foraminal and extraforaminal disc bulge/osteophytosis (series 9, image 19). Mild right foraminal narrowing. Mild narrowing of s tori canal related to broad-based disc bulge. Other: Atherosclerotic calcifications. IMPRESSION: Spondylotic changes, as detailed level b y level, includes moderate to severe spinal canal narrowing at L3-L 4 and moderate foraminal/extraforaminal narrowing on the left at L5-S1. Kacie Huerta APRN, C.N.P., D.N.P. IMG CT PROCEDURES documented in this encounter Visit Diagnoses Diagnosis Pain Low Back Unspecified documented in this encounter Additional Health Concerns Assessment Noted Time PHQ-9 Depression Total Score: 18 02/14/2013 9:53 AM CD T documented as of this encounter Care Teams Senior Backup Administrator Relationship Specialty Start Date End Date Cintia Cobb M.D. PCP - General 02/19/17 02/20/[address] [phone] documented as of this encounter
--- OUTSIDE RECORDS SUMMARY | 2022-07-29 10:45 | XMS_ITS | Encounter Summary ---
:1960 Author Organization [facility] Address [address] [place] [address] Care Team Providers Name Role Phone Cintia Cobb M.D. Primary Care Provider [phone] Reason for Referral Outpatient (Routine) - Closed Specialty Diagnoses / Procedures Referred By Contact Refer red To Contact Orthopedic Surgery Kacie Huerta APRN, [facility] C.N.P., D.N.P. [address] [place] [phone] Referral ID Status Reason Start Date Expiration Date Visits Requ ested Visits Authorized [id number] Closed 08/22/2020 08/22/2021 1 1 RI/CAT/PET Scan (Routine) - Closed Specialty Diagnoses / Procedures Referred By Contact Refer red To Contact Radiology Diagnoses Pain Low Back Unspecified Kacie Huerta APRN, [facility] Procedures CT Lumbar Spine without IV Contrast C.N.P., D.N.P. [address] [place] [address] Referral ID Status Reason Start Date Expiration Date Visits Requ ested Visits Authorized [id number] Closed 08/22/2020 08/22/2021 1 1 RI/CAT/PET Scan (Routine) - Closed Specialty Diagnoses / Procedures Referred By Contact Refer red To Contact Radiology Diagnoses Pain Hip Left Kacie Huerta APRN, [facility] Region Procedures CT Hip Left without IV Contrast C.N.P., D.N.P. [address] [place] [address] Referral ID Status Reason Start Date Expiration Date Visits Requ ested Visits Authorized [id number] Closed 08/22/2020 08/22/2021 1 1 SERVICE TEAM MEMBER Reason for Visit Reason Comments Injections Encounter Details Date Type Department Care Team Description 08/22/2020 Clinical Communication Department of Kacie Huerta I njections Orthopedic Surgery in [place], [place] D.N.P. [address] [facility] [address] [place] [phone] Social History Tobacco Use Types Packs/Day Years Used Date Smoking Tobacco: Never Smokeless Tobacco: Never Alcohol Use Standard Drinks/Week Comments No 0 (1 standard drink = 0.6 oz pure alcoho l) Sex Assigned at Date Recorded Not on file documented as of this encounter Miscellaneous Notes Telephone Encounter - Xochitl Edge R.N. - 08/24/2020 11:51 AM MEAT SERVICE TEAM MEMBER Patient is scheduled for the CT scans on 08/30/20. SERVICE TEAM MEMBER Telephone Encounter - Mehreen Coleman APRN, C.NEricka, D.N.P. - 08/24/2020 11:15 AM CST Lumbar and hip CT are ordered. Please have his schedule this when he is able. Following imaging, he can schedule with us to discuss results and next steps. If there are back issues seen on CT, he can follow up with whoever he wants. Thanks. SERVICE TEAM MEMBER Telephone Encounter - Xochitl Edge R.N. - 08/24/2020 10:32 AM MEAT SERVICE TEAM MEMBER TC from patient calling to schedule CT of lumbar spine and hip as well as a follow up with Kacie Huerta. Explained that Kacie's instructions were to follow up with Dr. Gonzalez in pain medicine for his back. Patient states that he needs to have both scans done at the same time due to his work schedule. He also states that if there is something going on with his back, he will return to [facility] for spine care and will not see Dr. Gonzalez. Consult for Dr. Gonzalez has been cancelled per his request and his call was transferred to the scheduling team. SERVICE TEAM MEMBER Telephone Encounter - Aleksandra Garcia L.P.N. - 08/22/2020 11:40 AM MEAT SERVICE TEAM MEMBER Called patient's per his request and informed her of Kacie's message below. Ed does not accept incoming calls from [place] on his phone. His will relay the message to call the scheduling line and set up 2 CT scans, an appointment with Kacie and wait to be called regarding the appointment with Dr. Gonzalez SERVICE TEAM MEMBER Telephone Encounter - Aleksandra Garcia L.P.N. - 08/22/2020 9:49 AM MEAT SERVICE TEAM MEMBER Patient called today with results of his injection. He states that he is still feeling the popping sensation, pain did subside a little bit but he still is having pain down the side of his leg, tightness in knee and numbness on the inside of his leg. He denies any numbness or tingling past his knee, any pain in buttock or back region, and very little groin pain. There is mention of a bone scan or CT, I informed patient I would check with you and get back to himhow to proceed. SERVICE TEAM MEMBER documented in this encounter Plan of Treatment Scheduled Referrals Name Type Priority Associated Order Schedule Diagnoses Orthopedic Surgery Outpatient Referral Routine Ex pected: office visit 08/22/2020 (clinic) (Approximate), Expires: 08/22/2023 documented as of this encounter Results CT Hip Left without IV Contrast (08/30/2020 1:21 PM MEAT SERVICE TEAM MEMBER) Anatomical Region Laterality Modality Lower Extremity, Hip, Musculoskeletal RST LOS, Left Computed Tomography Musculoskeletal ARZ LOS, Muskuloskeletal FLA LOS Specimen (Source) Anatomical Collection Method Collection Time Re ceived Time Location / / Volume Laterality 08/30/2020 1:33 PM MEAT SERVICE TEAM MEMBER Impressions 08/30/2020 1:38 PM MEAT SERVICE TEAM MEMBER Intramedullary ovidio and screw fixation across a healed intertrochanteric fracture of the left f emur; hardware appears well seated by CT. Mild left hip joint effusion and/or synovitis. Narrative 08/30/2020 1:38 PM MEAT SERVICE TEAM MEMBER EXAM: CT HIP LEFT WITHOUT IV CONTRAST [...] left hip joint effusion and/or synovitis. Kacie Oakes Bradley PALACIO, C.N.P., D.N.P. IMG CT PROCEDURES CT Lumbar Spine without IV Contrast (08/30/2020 1:14 PM MEAT SERVICE TEAM MEMBER) Anatomical Region Laterality Modality Lumbar Spine, Neuroradiology RST LOS, Neuroradiology N/A Computed Tomography ARZ LOS, Neuroradiology FLA LOS Specimen (Source) Anatomical Collection Method Collection Time Re ceived Time Location / / Volume Laterality 08/30/2020 1:24 PM MEAT SERVICE TEAM MEMBER Impressions 08/30/2020 1:32 PM MEAT SERVICE TEAM MEMBER Spondylotic changes, as detailed level by level, includes moderate to severe spinal canal narrowing at L3-L 4 and moderate foraminal/extraforaminal narrowing on the left at L5-S1. Narrative 08/30/2020 1:32 PM MEAT SERVICE TEAM MEMBER EXAM: CT LUMBAR SPINE WITHOUT IV CONTRAST [...] encounter Visit Diagnoses Diagnosis Pain Hip Left - Primary Pain Low Back Unspecified Pain Low Back Unspecified Pain Hip Left documented in this encounter Additional Health Concerns Assessment Noted Time PHQ-9 Depression Total Score: 18 02/14/2013 9:53 AM CD T documented as of this encounter Care Teams Rehabilitation Manager Relationship Specialty Start Date End Date Cintia Cobb M.D. PCP - General 02/19/17 02/20/[id number] [phone] documented as of this encounter
--- OUTSIDE RECORDS SUMMARY | 2022-07-29 10:45 | XMS_ITS | Encounter Summary ---
:1960 Author Organization [facility] Address [address] [place] [address] Care Team Providers Name Role Phone Cintia Cobb M.D. Primary Care Provider [phone] Reason for Visit Outpatient (Routine) - Canceled Specialty Diagnoses / Procedures Referred By Contact Refer red To Contact Family Medicine Diagnoses Anemia Microcytic Hypertension Essential Primary Diabetes Mellitus Type 2 With Diabetic Neuropathy (HCC) Hyperlipidemia On Treatment Gastric Bypass Status Post MANNY Cobb [facility] Gianna Piper M.D. [address] [place] [phone] Referral ID Status Reason Start Date Expiration Date Visits V isits Requested Authorized [id number] Canceled 11/08/2019 11/07/2020 1 1 Encounter Details Date Type Department Care Team Description 12/18/2020 Office Visit Department of [facility] Terri Cobb Mellitus Type 2 With Diabetic Neuropathy (HCC) (Primary Dx); MedicineMerlyn M.D. Diabetes Mellitus Type 2 Peripheral Neur opathy (HCC); [facility], in [address] [place] [address] Gastric Bypass Status Post; Merlyn Dean [facility] Flutter Atrial (HCC); [facility] [place] Pacemaker Cardiac Status Pos t; [address] [place] [phone] Benign Prostatic Hyperplasia Without Obs truction; MERLYN DEAN [place] [phone] (W ork) Pain Low Back; [phone] Intertrigo; [phone] Anemia Iron Def iciency Social History Tobacco Use Types Packs/Day Years Used Date Smoking Tobacco: Never Smokeless Tobacco: Never Alcohol Use Standard Drinks/Week Comments No 0 (1 standard drink = 0.6 oz pure alcoho l) Sex Assigned at Date Recorded Not on file documented as of this encounter Last Filed Vital Signs Vital Sign Reading Time Taken Comments Blood Pressure 138/80 12/18/2020 6:20 PM CDT Pulse 76 12/18/2020 6:20 PM CDT Temperature - - Respiratory Rate - - Oxygen Saturation 100% 12/18/2020 6:20 PM CDT Inhaled Oxygen Concentration - - Weight - - Height - - Body Mass Index - - documented in this encounter Progress Notes Cintia Cobb M.D. - 12/18/2020 6:30 PM CDT SUBJECTIVE CHIEF COMPLAINT / REASON FOR VISIT Ed Cuauhtemoc Luna is a 60 y.o. male who presents for evaluation of No chief complaint on file.. HISTORY OF PRESENT ILLNESS Ed reports concerns with his bladder. He has a hard time controlling his urine at times and at othertimes has a hard time starting his urine stream. He wonders if this could be related to his prostate. He does have a family history of prostate enlargement and he is taking Flomax. At times he also reports an infection at the tip of his penis. He is uncircumcised. Lotrimin seems to help. There is alsointermittent left groin irritation. He reports ongoing issues with his back and will be seeing Orthopedics to determine next steps. He intermittently checks his blood sugar with readings around 100. He reports chest pain across his chest ever since his pacemaker was placed but this has not been changing. Breathing is okay. He denies any ankle swelling. No trouble with his bowel movements. He denies any abdominal pain or black or bloody stools. He is using ibuprofen daily. He still reports some fatigue but does not have issues falling asleep suddenly during the day. He does easily nod off at the end of his day when sitting in his recliner. However, he reports some nightsonly getting 2 or 3 hours of sleep. REVIEW OF SYSTEMS A brief review of [...] long-term ??? allopurinoL (ZYLOPRIM) 300 mg tablet TAKE ONE TABLET BY MOUTH DAILY ??? blood sugar diagnostic (glucose blood) strips [...] capsules (0.8 mg total) by mouth daily. Allergies Allergen Reactions ??? Ciprofloxacin Other (see comments) Genital swelling ??? Haemophilus Influenzae GI intolerance Diarrhea OBJECTIVE PHYSICAL EXAMINATION BP 138/80 (BP Location: Left arm, Patient Position: Sitting, Cuff Size: Large) Pulse 76 SpO2 100% There is no height or weight on file to calculate BMI. General: Alert and oriented. No acute distress. Neck: Supple. No lymphadenopathy. No carotid bruits. Cardiovascular Exam: Regular rate and rhythm. Normal S1 and S2. Soft 2/6 systolic murmur. Lungs: Clear to auscultation bilaterally. Abdomen: Soft. Nontender. No masses, rebound, or guarding. Normoactive bowel sounds. Extremities: No pedal edema. DIAGNOSTICS Recent Results (from the past 24 hour(s)) Hemoglobin A1c Collection Time: 12/18/20 7:48 PM Result Value Hemoglobin A1c, B 5.3 CBC without Differential Collection Time: 12/18/20 7:48 PM Result Value Hemoglobin 8.0 (L) Hematocrit 27.7 (L) Erythrocytes 3.39 (L) MCV 81.7 RBC Distrib Width 16.2 (H) Platelet Count 234 Leukocytes 6.5 Vitamin B12 Assay Collection Time: 12/18/20 7:49 PM Result Value Vitamin B12 Assay, S >2000 (H) Basic Metabolic Panel Collection Time: 12/18/20 7:49 PM Result Value Potassium, P 4.3 Sodium, P 138 Chloride, P 105 Bicarbonate, P 26 Anion Gap, P 7 BUN, P 30 (H) Creatinine, P 0.91 eGFR Black >90 eGFR Non-Black >90 Calcium, Total, P 9.1 Glucose, P 110 Lipid Panel Collection Time: 12/18/20 7:49 PM Result Value Cholesterol, Total, P 133 Triglycerides, Fasting, P 60 Cholesterol, HDL, P 60 Calculated LDL 61 Non HDL Cholesterol 73 Ferritin Collection Time: 12/18/20 7:49 PM Result Value Ferritin, S 18 (L) PSA (Prostate-Specific Antigen) Screen Collection Time: 12/18/20 7:49 PM Result Value Prostate-Specific Ag 2.1 ASSESSMENT / PLAN #1 Diabetes Mellitus Type 2 With Diabetic Neuropathy (HCC) #2 Diabetes Mellitus Type 2 Peripheral Neuropathy (HCC) A1c acceptable. Patient remains diet controlled following his gastric bypass surgery. #3 Gastric Bypass Status Post Patient declined having his weight entered today. He does report gradual weight gain. Vitamin B12 level acceptable. Vitamin-D level pending. Advised him not to use ibuprofen in the setting of gastric bypass and previous ulceration. #4 Flutter Atrial (HCC) #5 Pacemaker Cardiac Status Post He reports unchanging chest pain and remains unhappy about the pacemaker. #6 Benign Prostatic Hyperplasia Without Obstruction PSA is stable. We will increase Flomax to 0.8 mg daily. If no improvement, we may need to refer to urology. #7 Pain Low Back Patient will continue working with external orthopedic surgeons to manage his back pain with radiculopathy. #8 Intertrigo Recommended that he continue to use Lotrimin as needed and keep this area clean and dry. #9 Iron deficiency anemia Hemoglobin remains low but stable. Ferritin level is low. Patient has declined iron infusions in thepast. He would benefit from these. Plan was discussed with patient and is in agreement with plan. All questions were answered, side effects of any/all new medications were discussed. Patient left in no acute distress. Cintia Copeland MD documented in this encounter Plan of Treatment Not on filedocumented as of this encounter Procedures Procedure Name Priority Date/Time Associated Diagnosis Comme nts PROSTATE-SPECIFIC Routine 12/18/2020 7:49 PM Benign Prostatic Results for this AG (PSA) SCRN, S CDT Hyperplasia Without proc edure are in Obstruction the results section. documented in this encounter Results PSA (Prostate-Specific Antigen) Screen (12/18/2020 7:49 PM CDT) athologist Signature Prostate-Specif 2.1 <=4.5 ng/mL 12/19/2020 [facility] ic Ag 1:49 PM CDT Comment: Biotin has been identified by the [facility] as a potential interfering substance. ??Higher concentr ations of biotin may be found in multivitamins, hair/nail supple ments, and workout supplements. ??If the result does not ma [facility] clinical observations, repeat testing after patient refrains fr om the use of supplements for at least 12 hours. ----ADDITIONAL INFORMATION---- The testing method is an electrochemilum inescence assay manufactured by [employer] and performed on the Modular [...] 21 Venous) CDT 12:42 PM CDT Cintia Copeland M.D. LAB BLOOD ADD-ON Performing Organization Address City/State/ZIP Code Phon e Number [facility]- [address] [place], [place] [address] [facility] [address] System in [place] [address] documented in this encounter Visit Diagnoses Diagnosis Diabetes Mellitus Type 2 With Diabetic N europathy (HCC) - Primary Diabetes Mellitus Type 2 Peripheral Neur opathy (HCC) Gastric Bypass Status Post Flutter Atrial (HCC) Pacemaker Cardiac Status Post Benign Prostatic Hyperplasia Without Obs truction Pain Low Back Unspecified Intertrigo Anemia Iron Deficiency documented in this encounter Additional Health Concerns Assessment Noted Time PHQ-9 Depression Total Score: 18 02/14/2013 9:53 AM CD T documented as of this encounter Care Teams Cryptologic Technician Relationship Specialty Start Date End Date Cintia Cobb M.D. PCP - General 02/19/17 02/20/[address] [place] [phone] documented as of this encounter
--- OUTSIDE RECORDS SUMMARY | 2022-07-29 10:45 | XMS_ITS | Encounter Summary ---
:1960 Author Organization [facility] Address [address] [place] [address] Care Team Providers Name Role Phone Cintia Cobb M.D. Primary Care Provider [phone] Encounter Details Date Type Department Care Team Description 08/07/2020 Hospital Encounter Department of Radiology Otf Huerta, Pain Hip Left in [facility], C.N[place], [place] D.N.P. [address] [place] [phone] Social History Tobacco Use Types Packs/Day [...] an empty stomach. Remain upright for 30min. sennosides-docusate Take 1 tablet by 0 08/16/2019 08/15/2020 sodium (SENOKOT-S) mouth 2 (two) times 8.6-50 mg per tablet a day as needed for constipation. allopurinoL (ZYLOPRIM) TAKE ONE TABLET BY 90 [...] Name Priority Date/Time Associated Comments Diagnosis DX HIP LEFT 2-3 RAD - Routine 08/07/2020 11:00 Pain Hip Left Result s for this VIEWS (most inpatients AM INSTRUMENTATION TECHNOLOGIST procedure a re in and all the results outpatients) section. documented in this encounter Results DX Hip Left 2-3 Views (08/07/2020 11:00 AM INSTRUMENTATION TECHNOLOGIST) Anatomical Region Laterality Modality Lower Extremity, Hip, Musculoskeletal RST LOS, Left Digital Radiography Musculoskeletal ARZ LOS, Muskuloskeletal FLA LOS Specimen (Source) Anatomical Collection Method Collection Time Re ceived Time Location / / Volume Laterality 08/07/2020 11:28 AM INSTRUMENTATION TECHNOLOGIST Impressions 08/07/2020 11:29 AM INSTRUMENTATION TECHNOLOGIST Postoperative changes proximal left femoral intramedullary rodding screw fixation across the intertrochanteric fr acture. Hardware is intact. No evidence of acute osseous abnormality. Mild degen erative changes of the bilateral hips. Atherosclerotic vascular disease. March 092019 comparison. Narrative 08/07/2020 11:29 AM INSTRUMENTATION TECHNOLOGIST EXAM: DX HIP LEFT 2-3 VIEWS Procedure Note Cesar Renteria M.D. - 08/07/2020Forma tting of this note might be different from the original. EXAM: DX HIP LEFT 2-3 VIEWS IMPRESSION: Postoperative changes proximal left femo ral intramedullary rodding screw fixation across the intertrochanteric fr acture. Hardware is intact. No evidence of acute osseous abnormality. Mild degen erative changes of the bilateral hips. Atherosclerotic vascular disease. March 092019 comparison. Kacie Huerta APRN C.N.P., D.N.P. IMG DIAGNOSTIC IMAG ING PROCEDURES documented in this encounter Visit Diagnoses Diagnosis Pain Hip Left documented in this encounter Additional Health Concerns Assessment Noted Time PHQ-9 Depression Total Score: 18 02/14/2013 9:53 AM CD T documented as of this encounter Care Teams Manager Agricultural Relationship Specialty Start Date End Date Cintia Cobb M.D. PCP - General 02/19/17 02/20/[id number] [phone] documented as of this encounter
--- OUTSIDE RECORDS SUMMARY | 2022-07-29 10:45 | XMS_ITS | Encounter Summary ---
:1960 Author Organization [facility] Address [address] [place] [address] Care Team Providers Name Role Phone Cintia Cobb M.D. Primary Care Provider Encounter Details Date Type Department Care Team Description 07/04/2020 Orders Only [facility] [address] M.D . [address] [place] [phone] [place], [place] [phone] (Wo rk) Social History Tobacco Use [...] documented as of this encounter Care Teams Fresh Foods Technician Relationship Specialty Start Date End Date Cintia Cobb M.D. PCP - General 02/19/17 02/20/[phone] [place] [phone] documented as of this encounter
--- OUTSIDE RECORDS SUMMARY | 2022-07-29 10:45 | XMS_ITS | Encounter Summary ---
:1960 Author Organization [facility] Address [address] [place] [address] Care Team Providers Name Role Phone Cintia Cobb M.D. Primary Care Provider [phone] Encounter Details Date Type Department Care Team Description 10/15/2020 Clinical Communication Department of Kacie Huerta, Orthopedic Surgery in [facility] [place] D.N.P. [address] [place] [phone] Social History Tobacco Use Types Packs/Day Years [...] documented as of this encounter Care Teams Software Development Specialist Relationship Specialty Start Date End Date Cintia Cobb M.D. PCP - General 02/19/17 02/20/[phone] [place] [phone] documented as of this encounter
--- OUTSIDE RECORDS SUMMARY | 2022-07-29 10:45 | XMS_ITS | Encounter Summary ---
:1960 Author Organization [facility] Address [address] [place] [address] Care Team Providers Name Role Phone Cintia Cobb M.D. Primary Care Provider [phone] Encounter Details Date Type Department Care Team Description 11/09/2020 Clinical Communication Department of Kacie Huerta, Orthopedic Surgery in [facility] [place] D.N.P. [address] [phone] Social History Tobacco Use Types Packs/Day Years Used Date Smoking Tobacco: Never Smokeless Tobacco: Never Alcohol Use Standard Drinks/Week Comments No 0 (1 standard drink = 0.6 oz pure alcoho l) Sex Assigned at Date Recorded Not on file documented as of this encounter Miscellaneous Notes Telephone Encounter - Maricel Aleman R.N. - 11/13/2020 4:55 PM SHIP MATE Left another message on patient's phone to update his plan of care. MATE Telephone Encounter - Maricel Aleman R.N. - 11/12/2020 11:26 AM SHIP MATE LM for patient to callback on mobile number. MATE Telephone Encounter - Emelia Mujica L.P.N. - 11/09/2020 12:55 PM SHIP MATE Attempt to contact patient his phone is currently not taking call. MATE Telephone Encounter - Aleksandra Garcia L.P.N. - 11/09/2020 12:38 PM SHIP MATE Per Kacie- she would like to wait and see for the next couple weeks and see if this changes since gordyid find some relief. If the pain is still the same in 2 more weeks, she would like to order a CT of his knee. MATE Telephone Encounter - Emelia Mujica L.P.N. - 11/09/2020 11:29 AM SHIP MATE Patient called with update on Left knee cortisone injection 10/30/20. He reports that it took away some of the pain but is draw frame tender to touch on the left inside of knee. He does not wish to proceed with Pt he does have a pace maker so is unsure of option of a MRI. Please advise on next steps in plane of care. MATE documented in this encounter Plan of Treatment Not on filedocumented as of this encounter Visit Diagnoses Not on filedocumented in this encounter Additional Health Concerns Assessment Noted Time PHQ-9 Depression Total Score: 18 02/14/2013 9:53 AM CD T documented as of this encounter Care Teams Production Utility Worker Relationship Specialty Start Date End Date Cintia Cobb M.D. PCP - General 02/19/17 02/20/[address] [place] [phone] documented as of this encounter
--- OUTSIDE RECORDS SUMMARY | 2022-07-29 10:45 | XMS_ITS | Encounter Summary ---
:1960 Author Organization [facility] Address [address] [place] [address] Care Team Providers Name Role Phone Cintia Cobb M.D. Primary Care Provider [phone] Reason for Visit Reason Comments Paper Work Referrals Outside of [place] Encounter Details Date Type Department Care Team Description 12/04/2020 Clinical Communication Department of Christian Mcduffie Paper Work Medicine in [place] RAZO M.D. (Referrals Outside [place], [place] [address] [facility]) [address] [place] [address] [phone] Social History Tobacco Use Types Packs/Day Years Used Date Smoking Tobacco: Never Smokeless Tobacco: Never Alcohol Use Standard Drinks/Week Comments No 0 (1 standard drink = 0.6 oz pure alcoho l) Sex Assigned at Date Recorded Not on file documented as of this encounter Miscellaneous Notes Telephone Encounter - Hannah Simms - 12/04/2020 2:10 PM CDT Physician referrals placed, and Insurance referrals requested as well ( email sent Freida Monreal) Patient has not decided if he will go to [facility] in [place] or to [facility] in [place]. documented in this encounter Plan of Treatment Not on filedocumented as of this encounter Visit Diagnoses Not on filedocumented in this encounter Additional Health Concerns Assessment Noted Time PHQ-9 Depression Total Score: 18 02/14/2013 9:53 AM CD T documented as of this encounter Care Teams Exhaust Equipment Operator Relationship Specialty Start Date End Date Cintia Cobb M.D. PCP - General 02/19/17 02/20/[address] [phone] documented as of this encounter
--- OUTSIDE RECORDS SUMMARY | 2022-07-29 10:45 | XMS_ITS | Encounter Summary ---
:1960 Author Organization [facility] Address [address] [place] [address] Care Team Providers Name Role Phone Cintia Cobb M.D. 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 External, Referring [address] [place] [address] Referral ID Status Reason Start Date Expiration Visits Visits Date Requested Authorized [id number] Closed Continuity of 12/04/2020 12/04/2021 1 1 Care Outpatient (Routine) - Closed Specialty Diagnoses / Procedures Referred By Contact Refer red To Contact Diagnoses Pain Low Back Chronic Spondylosis Lumbar Without Myelopathy Radiculopathy Lumbar Christian Gonzalez II, M.D. 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 External, Referring [address] [place] [address] Referral ID Status Reason Start Date Expiration Visits Visits Date Requested Authorized [id number] Closed Continuity of 12/04/2020 12/04/2021 1 1 Care Encounter Details Date Type Department Care Team Description 12/04/2020 Orders Only Department of Pain Estrella Mark, Pain Low Back Chronic (Primary Dx); Medicine in [place] Spondylosis Lumbar Without Myelopathy; [place] [phone] Radiculopathy Lumbar [address] [facility] (Work) [place] [address] Social History Tobacco Use Types Packs/Day Years Used Date Smoking Tobacco: Never Smokeless Tobacco: Never Alcohol Use Standard Drinks/Week Comments No 0 (1 standard drink = 0.6 oz pure alcoho l) Sex Assigned at Date Recorded Not on file documented as of this encounter Plan of Treatment Not on filedocumented as of this encounter Visit Diagnoses Diagnosis Pain Low Back Chronic - Primary Spondylosis 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 PCP - General 02/19/17 02/20/[address] [phone] documented as of this encounter
--- OUTSIDE RECORDS SUMMARY | 2022-07-29 10:45 | XMS_ITS | Encounter Summary ---
:1960 Author Organization [facility] Address [address] [place] [address] Care Team Providers Name Role Phone Cintia Cobb M.D. Primary Care Provider [phone] Encounter Details Date Type Department Care Team Description 04/12/2020 Clinical Communication Department of John Norman , Orthopedic Surgery in [place] [address] [address] [phone] Social History Tobacco Use Types Packs/Day Years [...] documented as of this encounter Care Teams Cryogenics Repairer Relationship Specialty Start Date End Date Cintia Cobb M.D. PCP - General 02/19/17 02/20/[address] [phone] documented as of this encounter
--- OUTSIDE RECORDS SUMMARY | 2022-07-29 10:45 | XMS_ITS | Encounter Summary ---
:1960 Author Organization [facility] Address [address] [place] [address] Care Team Providers Name Role Phone Cintia Cobb M.D. Primary Care Provider [phone] Encounter Details Date Type Department Care Team Description 11/14/2020 Orders Only [facility] Sa chico Brand M.D. [address] [place], [place] [phone] (Wo rk) Social History Tobacco Use Types [...] documented as of this encounter Care Teams Foil Cutter Relationship Specialty Start Date End Date Cintia Cobb M.D. PCP - General 02/19/17 02/20/[address] [place] [phone] documented as of this encounter
--- OUTSIDE RECORDS SUMMARY | 2022-07-29 10:45 | XMS_ITS | Encounter Summary ---
:1960 Author Organization [facility] Address [address] [place] [address] Care Team Providers Name Role Phone Cintia Cobb M.D. Primary Care Provider [phone] Reason for Referral Outpatient (Routine) - Closed Specialty Diagnoses / Procedures Referred By Contact Refer red To Contact Diagnoses Trochanteric Bursitis Left Hip Kacie Huerta, [place], [facility] Region Procedures erj-dzzv-bqzroevk-elbow arthrocentesis: L greater troch bursa C.N.P., D.N.P. [address] [place] [address] Referral ID Status Reason Start Date Expiration Date Visits Requ ested Visits Authorized [id number] Closed 08/07/2020 08/07/2021 1 1 OMIC HISTORIAN Reason for Visit Reason Comments Pain Appointment Request (Routine) - Closed Specialty Diagnoses / Procedures Referred By Contact Refer red To Contact Orthopedic Surgery Referral ID Status Reason Start Date Expiration Date Visits Requ ested Visits Authorized [id number] Closed 08/07/2020 08/07/2021 1 1 Encounter Details Date Type Department Care Team Description 08/07/2020 Office Visit Department of Kacie Huerta, Pain Hip Le ft (Primary Dx); Orthopedic Surgery in [place] C.N.PPili, Troch anteric Bursitis Left Hip Fidel CondonN.P. [place] [id number] [address] [place] [phone] Social History Tobacco Use Types Packs/Day Years Used Date Smoking Tobacco: Never Smokeless Tobacco: Never Alcohol Use Standard Drinks/Week Comments No 0 (1 standard drink = 0.6 oz pure alcoho l) Sex Assigned at Date Recorded Not on file documented as of this encounter Progress Notes Kacie Huerta, HAKEEM, C.N.P., D.N.P. - 08/07/2020 10:30 AM CST Ed is a 60-year-old who has a history of reduction intramedullary fixation of the left intratrochanteric femur fracture that was performed in August of 2019-he had been doing well and able to do mostof his regular activities until he noted a clicking sensation in his left hip for the past 3-4 weeks. He states it occasionally is painful. He denies any pain radiating into his groin. Denies any new injury or fall. Physical exam-left hip surgical incisions are well healed there is no redness and has normal appearance. He has adequate motion of his left hip. He does have some weakness with abduction when compared to the contralateral side. With flexion and abduction he does have a palpable click on his trochanteric area. The rest of his physical exam is unremarkable. Diagnostic studies x-ray of his left hip shows Postoperative changes proximal left femoral intramedullary rodding screw fixation across the intertrochanteric fracture. Hardware is intact. No evidence of acute osseous abnormality. Mild degenerative changes of the bilateral hips. Atherosclerotic vascular disease. Impression and plan- Ed is a 60-year-old male who is having trochanteric clicking which I suspect may be related to a bursitis that occurred. It appears his previous fracture is stable with the hardware. After discussion with patient on treatment options we decided to proceed with an trochanteric bursa injection to see if reducing the inflammation would eliminate his symptoms. After brief discussion,consent form was obtained, using 6 cc of 1% lidocaine and 80 mg of methylprednisone was injected into his trochanteric bursa per sterile technique without difficulty and patient tolerated the procedurewell. I asked him to give this 2-3 weeks to evaluate of response and if he notes any improvement to eric france to monitor but if his symptoms show no changes or any worsening symptoms could consider a CTscan for further evaluation of his hip. An MRI is not indicated due to his pacemaker. We could also consider a bone scan to evaluate the healing of the fracture however I believe this is most likely related to soft tissue. Patient agrees with this plan and his questions were answered. 32 minutes was spent with patient of which 22 minutes was counseling and treatment options regardinghis left hip pain 08/22/20 Patient called today with results of his [...] back region, and very little groin pain. Due to the popping sensation continuing, will obtain an CT scan of his hip. However with numbness onthe inside of his leg I suspect this is related to his back and feel he would benefit from a consultation with Dr. Gonzalez also. He does have a lumbar spine CT from 2018 which should be repeated prior to that visit. OMIC HISTORIAN documented in this encounter Procedure Notes Aleksandra Garcia L.P.N. - 08/07/2020 10:30 AM CSTAssociated Order(s): jsc-ectw-zuwtgmld-elbow arthrocentesis: L greater troch bursa Post-Procedure Diagnose(s): Trochanteric Bursitis Left Hip Hip site - L greater troch bursa : injection only Date/Time: 08/07/2020 11:35 AM Performed by: Kacie Huerta APRN, C.N.P., D.N.P. Authorized by: Kacie Huerta APRN, C.N.P., D.N.P. PROCEDURE DETAILS Procedure Location hip Hip site: L greater troch bursa Site prep: patient was prepped and draped in usual sterile fashion Procedure performed: injection only Needle gauge: 22 G Procedural Medication The following medications were administered at the target site(s) Local anesthetic: 5 mL lidocaine 10 mg/mL (1 %) Corticosteroid: 80 mg methylPREDNISolone acetate 80 mg/mL CONSENT Consent obtained: written PRE-PROCEDURE DETAILS Procedure purpose: therapeutic and diagnostic Indications: Left hip pain Skin preparation: povidone-iodine SEDATION / ANESTHESIA Anesthesia method: none POST-PROCEDURE DETAILS Procedure completed successfully: yes Complications: no apparent complications Discharge instructions: dressing care and follow-up with ordering provider OMIC HISTORIAN documented in this encounter Plan of Treatment Not on filedocumented as of this encounter Procedures Procedure Name Priority Date/Time Associated Diagnosis Comme nts CO ARTHCS ASP/INJ Routine 08/07/2020 10:30 Trochanteric Bursit is Results for this MJR JT WO US AM ECONOMIC HISTORIAN Left Hip procedure are i n the results section. documented in this encounter Results DX Hip Left 2-3 Views (08/07/2020 11:00 AM ECONOMIC HISTORIAN) Anatomical Region Laterality Modality Lower Extremity, Hip, Musculoskeletal RST LOS, Left Digital Radiography Musculoskeletal ARZ LOS, Muskuloskeletal FLA LOS Specimen (Source) Anatomical Collection Method Collection Time Re ceived Time Location / / Volume Laterality 08/07/2020 11:28 AM ECONOMIC HISTORIAN Impressions 08/07/2020 11:29 AM ECONOMIC HISTORIAN Postoperative changes proximal left femoral intramedullary rodding screw fixation across the intertrochanteric fr acture. Hardware is intact. No evidence of acute osseous abnormality. Mild degen erative changes of the bilateral hips. Atherosclerotic vascular disease. March 092019 comparison. Narrative 08/07/2020 11:29 AM ECONOMIC HISTORIAN EXAM: DX HIP LEFT 2-3 VIEWS Procedure [...] disease. March 092019 comparison. Kacie Huerta APRN C.N.PPili, D.N.P. IMG DIAGNOSTIC IMAG ING PROCEDURES CO ARTHCS ASP/INJ MJR JT WO US (08/07/2020 10:30 AM ECONOMIC HISTORIAN) Narrative MMODAL - 08/07/2020 10:30 AM ECONOMIC HISTORIAN Aleksandra Garcia L.P.N. ? 08/08/2020 ??9:00 AM Hip site - L greater troch bursa : injec tion only Date/Time: 08/07/2020 11:35 AM Performed by: Kacie Huerta APRN, C.N. PPili, D.N.P. Authorized by: Kacie Huerta APRN, C.N .PPili, D.N.P. PROCEDURE DETAILS Procedure Location hip Hip site: L greater troch bursa Site prep: patient was prepped and drape d in usual sterile fashion ?? Procedure performed: injection only Needle gauge: 22 G Procedural Medication The following medications were administe red at the target site(s) Local anesthetic: 5 mL lidocaine 10 mg/m L (1 %) Corticosteroid: 80 mg methylPREDNISolone acetate 80 mg/mL CONSENT Consent obtained: written PRE-PROCEDURE DETAILS Procedure purpose: therapeutic and diagn ostic Indications: Left hip pain Skin preparation: povidone-iodine SEDATION / ANESTHESIA Anesthesia method: none POST-PROCEDURE DETAILS Procedure completed successfully: yes Complications: no apparent complications ?? Discharge instructions: dressing care an d follow-up with ordering provider Kacie Huerta APRN, C.N.P., D.N.P. PROCEDURE/MINOR GEE GICAL ORDERABLES Performing Organization Address City/State/ZIP Code Phon e Number MMODAL MMODAL NA documented in this encounter Visit Diagnoses Diagnosis Pain Hip Left - Primary Trochanteric Bursitis Left Hip Pain Hip Left documented in this encounter Administered Medications Inactive Administered Medications - up to 3 most recent administrations Medication Order MAR Action Action Date Dose Rate Site lidocaine 10 mg/mL (1 %) injection Given 08/07/2020 11:35 AM ECONOMIC HISTORIAN 5 mL 5 mL (XYLOCAINE) 5 mL, infiltration, One-Time Injection, Starting on Thu08/07/20 at 1135, For 1 dose methylPREDNISolone acetate injection 80 mg Given 08/07/2020 11:3 5 AM ECONOMIC HISTORIAN 80 mg (DEPO-Medrol) 80 mg, intra-articular, One-Time Injection, Starting on Thu08/07/20 at 1135, For 1 dose documented in this encounter Additional Health Concerns Assessment Noted Time PHQ-9 Depression Total Score: 18 02/14/2013 9:53 AM CD T documented as of this encounter Care Teams Steam Flattener Relationship Specialty Start Date End Date Cintia Cobb M.D. PCP - General 02/19/17 02/20/[address] [place] [phone] documented as of this encounter
--- OUTSIDE RECORDS SUMMARY | 2022-07-29 10:45 | XMS_ITS | Encounter Summary ---
:1960 Author Organization [facility] Address [address] [place] [address] Care Team Providers Name Role Phone Cintia Cobb M.D. Primary Care Provider [phone] Reason for Visit Reason Comments DMV certificate Encounter Details Date Type Department Care Team Description 04/26/2020 Clinical Communication Department of Noel DMV certificate [facility] [place] [facility], M.[facility], in [address] [address] [place], [place] [phone] (Work) [phone] Social History Tobacco Use Types Packs/Day Years Used Date Smoking Tobacco: Never Smokeless Tobacco: Never Alcohol Use Standard Drinks/Week Comments No 0 (1 standard drink = 0.6 oz pure alcoho l) Sex Assigned at Date Recorded Not on file documented as of this encounter Miscellaneous Notes Telephone Encounter - Viola Ferrer - 04/27/2020 1:01 PM CDT SIMEON Sanchez will walk the form over to the Reg Desk in ER for Ed to pickup on Thursday, 04/29. I informedEd of this. Telephone Encounter - Laura Mejia C, R.N. - 04/26/2020 12:54 PM CDT Provider sent pt a message stating that his requested DMV certificate has been signed by her and placed at the front worker for pick-up. Certificate still needs to be completed by pt (ie. DL number). Certificate at front worker awaiting pt pick-up. documented in this encounter Plan of Treatment Not on filedocumented as of this encounter Visit Diagnoses Not on filedocumented in this encounter Additional Health Concerns Assessment Noted Time PHQ-9 Depression Total Score: 18 02/14/2013 9:53 AM CD T documented as of this encounter Care Teams Head Of Music Relationship Specialty Start Date End Date Cintia Cobb M.D. PCP - General 02/19/17 02/20/[address] [phone] documented as of this encounter
--- OUTSIDE RECORDS SUMMARY | 2022-07-29 10:45 | XMS_ITS | Encounter Summary ---
:1960 Author Organization [facility] Address [address] [place] [address] Care Team Providers Name Role Phone Cintia Cobb M.D. Primary Care Provider [phone] Encounter Details Date Type Department Care Team Description 06/27/2020 Orders Only Pharmacy Prior Auth RO Unassigned, Pcp [phone] Social History Tobacco Use Types Packs/Day Years [...] documented as of this encounter Care Teams Paleology Teacher Relationship Specialty Start Date End Date Cintia Cobb M.D. PCP - General 02/19/17 02/20/[address] [place] [phone] documented as of this encounter
--- OUTSIDE RECORDS SUMMARY | 2022-07-29 10:45 | XMS_ITS | Encounter Summary ---
:1960 Author Organization [facility] Address [address] [place] [address] Care Team Providers Name Role Phone Cintia Cobb M.D. Primary Care Provider [phone] Encounter Details Date Type Department Care Team Description 10/09/2020 Orders Only Department of [facility] Angélica Cobb Medicine, Jose Daniel Piper M.D. Clinic, [address] [address] [place], [place] [phone] (W ork) [address] [phone] Social History Tobacco Use Types Packs/Day Years [...] documented as of this encounter Care Teams Poem Writer Relationship Specialty Start Date End Date Cintia Cobb M.D. PCP - General 02/19/17 02/20/[address] [place] [phone] documented as of this encounter
--- OUTSIDE RECORDS SUMMARY | 2022-07-29 10:45 | XMS_ITS | Encounter Summary ---
:1960 Author Organization [facility] Address [address] [place] [address] Care Team Providers Name Role Phone Cintia Cobb M.D. Primary Care Provider Encounter Details Date Type Department Care Team Description 11/07/2020 Orders Only [facility] PCP [facility] Priyanka Cobb Mellitus Type DREWT Cintia Piper M.D. 2 With Diabetic [address] [place] [address] Neuropathy ( HCC) [place] [address] (Wo rk) Social History Tobacco [...] documented as of this encounter Care Teams Corporate Staff Accountant Relationship Specialty Start Date End Date Cintia Cobb M.D. PCP - General 02/19/17 02/20/22 [address] [facility] [address] [place] [phone] documented as of this encounter
--- OUTSIDE RECORDS SUMMARY | 2022-07-29 10:45 | XMS_ITS | Encounter Summary ---
:1960 Author Organization [facility] Address [address] [place] [address] Care Team Providers Name Role Phone Cintia Cobb M.D. Primary Care Provider [phone] Reason for Visit Reason Comments Pain Medicine Intake - Return Patient Patient here for consult, c/o low back pain Visit with radiating pain down lef t leg to the foot. [facility] had back sugery in 1988. No known injury. Outpatient (Routine) - Closed Specialty Diagnoses / Procedures Referred By Contact Refer red To Contact Pain Medicine Diagnoses Spondylitis (HCC) Kacie Huerta APRN, [facility] C.N.P., D.N.P. [address] [place] [phone] Referral ID Status Reason Start Date Expiration Date Visits V isits Requested Authorized [id number] Closed Specialty 10/30/2020 10/30/2021 1 1 Services Required Encounter Details Date Type Department Care Team Description 12/03/2020 Comprehensive Visit Department of Pain Christian Gonzalez Low Back Chronic (Primary Dx); Medicine in [facility] Keely RAZO Spondylitis (HCC); [place], [place] [address] [facility] Spondylosis Lumbar Without Myelopathy; [address] [place], [place] [phone] Social History Tobacco Use Types Packs/Day Years Used Date Smoking Tobacco: Never Smokeless Tobacco: Never Alcohol Use Standard Drinks/Week Comments No 0 (1 standard drink = 0.6 oz pure alcoho l) Sex Assigned at Date Recorded Not on file documented as of this encounter Last Filed Vital Signs Vital Sign Reading Time Taken Comments Blood Pressure 144/79 12/03/2020 9:11 AM CDT Pulse 72 12/03/2020 9:11 AM CDT Temperature - - Respiratory Rate - - Oxygen Saturation 98% 12/03/2020 9:11 AM CDT Inhaled Oxygen Concentration - - Weight - - Height - - Body Mass Index - - documented in this encounter Consult Notes Christian Gonzalez II, M.D. - 12/03/2020 8:00 AM CDT REQUESTING PROVIDER: Kacie Huerta APRN C.N.P., D.N.P. HISTORY OF PRESENT ILLNESS: Mr. Luna is a 60-year-old gentleman who I am seeing today at the request of Kacie Huerta. The patientpresents for evaluation of low back pain. He does have a medical history significant for a lumbar surgery done in the late 80s. The patient also has a history of cardiac pacemaker. He has also undergone gastric bypass surgery. He has lost a significant amount of weight. He states that overall his pain had previously been stable, but has currently worsened. On August 30, 2020, he underwent a CT scan. This shows spinal stenosis of the L3- 4 level with foraminal narrowing at L5-S1. The patient presents primarily with pain along the lateral aspect of his legs. It typically goes to the knees, but his pain will radiate down to the ankles. He is unable to undergo evaluation in [place] by report. He states that there were some inappropriate behavior, which resulted in termination from that campus. He has been up to [facility] in the [facility]. He has undergone evaluations of musculoskeletal issues as well as his low back. He was previously referred to [facility]. He underwent an epidural injection, which gave him some relief. He presents today for further evaluation and recommendations. PAST MEDICAL/SURGICAL HISTORY The patient???s medical and surgical histories were reviewed today in clinic. Please refer to the electronic medical record for a complete list. Past Medical History: Diagnosis Date ??? Anemia ??? Diabetes Mellitus NOS Past Surgical History: Procedure Laterality Date ??? BYPASS OF STOMACH N/A 11/19/2014 Gastric bypass ??? CARDIAC PACEMAKER PLACEMENT ??? CHONDRECTOMY OF SPINE N/A 02/19/1989 Discectomy ??? CYSTOSCOPY kidney stone ??? ESOPHAGOGASTRODUODENOSCOPY N/A 04/13/2018 Procedure: ESOPHAGOGASTRODUODENOSCOPY; Surgeon: Rene Carlson M.D.; Location: [facility] GI LAB ??? LAPAROSCOPIC ASSISTED - GASTRIC BYPASS N/A 11/21/2014 Laparoscopic assisted - Gastric bypass ??? OPEN REDUCTION INTERNAL FIXATION FEMUR Left 08/13/2019 Procedure: OPEN REDUCTION INTERNAL FIXATION LEFT FEMUR; Surgeon: John Norman M.D.; Location:[facility] OR ??? OTHER CONVERTED SHX (SEE COMMENT) N/A 01/19/2017 >Implantation of dual-chamber permanent pacemaker. ??? OTHER SURGICAL HISTORY cystoscopy ??? UPPER GASTROINTESTINAL ENDOSCOPY N/A 11/21/2014 Upper gastrointestinal endoscopy MEDICATIONS These were reviewed in clinic. Please refer to electronic medical record for a complete list. Prior to Admission medications Medication Sig Start Date End Date Taking? Authorizing Provider acetaminophen (TYLENOL) 500 mg tablet Take 2 tablets (1,000 mg total) by mouth 3 (three) times a dayas needed for pain. Do not exceed 4 g total per day from all sources next 2 weeks, and no more than 4 g per day total long-term 08/16/19 Yes Laz Dumont M.D. allopurinoL (ZYLOPRIM) 300 mg tablet TAKE ONE TABLET BY MOUTH DAILY 09/21/20 Yes Cintia Cobb M.D. blood sugar diagnostic (glucose blood) strips 1 test once a week. Dx: E11.9, brand per insurance preference 11/08/19 Yes Cintia Cobb M.D. blood-glucose meter misc 1 each daily. 1 each daily. Dx: E11.9. Brand per insurance coverage. 11/09/19Yes Cintia Cobb M.D. calcium carbonate (TUMS) 500 mg (200 mg calcium) chewable tablet Chew 2 tablets 2 (two) times a day.Yes Provider, Historical foam bandage (Mepilex) 4 X 4 bandage Apply 1 each topically every 3 (three) days. 09/12/19 Yes Cintia Cobb M.D. furosemide (LASIX) 40 mg tablet TAKE ONE TABLET BY MOUTH DAILY 09/21/20 Yes Cintia Cobb M.D. ibuprofen (ADVIL,MOTRIN) 200 mg tablet Take 200 mg by mouth 2 (two) times a day. Yes Provider, Historical lancets 1 each daily. Dx: E11.9. Brand per insurance coverage. 11/09/19 Yes Cintia Cobb M.D. loperamide (IMODIUM A-D) 2 mg capsule Take 2 mg by mouth 4 (four) times a day as needed for diarrhea. Yes Provider, Historical omeprazole (PriLOSEC) [address] capsule Take 1 capsule (20 mg total) by mouth every morning before breakfast. 11/21/20 11/21/21 Yes Cintia Cobb M.D. PEDIATRIC MULTIVITAMIN NO.76 (FLINTSTONES COMPLETE ORAL) Take 4 tablets by mouth daily. 11/12/15 Yes Provider, Historical tamsulosin (FLOMAX) 0.4 mg 24 hr capsule TAKE ONE CAPSULE BY MOUTH ONCE DAILY 09/21/20 Yes Cintia Cobb M.D. ALLERGIES Allergies Allergen Reactions ??? Ciprofloxacin Other (see comments) Genital swelling ??? Haemophilus Influenzae GI intolerance Diarrhea SOCIAL HISTORY Patient is . PHYSICAL EXAMINATION GENERAL: The patient is awake, alert, in no acute distress. MENTAL STATUS: Oriented to person, place, and time. Displays appropriate mood and affect. Judgment and insight are congruent. HEAD: Normocephalic, atraumatic. EYES: Conjunctivae appear normal. PERIPHERAL VASCULAR: No obvious swelling in all four extremities. SKIN: Skin inspection of the trunk and bilateral upper and lower extremities is unremarkable. GAIT: Non-antalgic gait. Toe walking, heel walking, and tandem gait are normal. NEUROLOGICAL: SLR: Straight leg raise is negative for radicular type pain bilaterally. SENSORY: Decreased sensation to light touch noted along the lateral aspect of his legs, left greaterthan right. REFLEXES: Bilateral upper and lower extremity coordination and muscle stretch reflexes are physiologic and symmetric at the ankles, patella, biceps, brachioradialis, and triceps. MUSCULOSKELETAL: Upper and lower extremity strength is normal in all major muscle groups. No atrophyor tone abnormalities noted. ASSESSMENT / PLAN #1 Chronic low back pain #2 Lumbar spondylosis without myelopathy #3 Lumbar radiculopathy #4 History of previous lumbar surgery PLAN: We discussed the plan of care. We discussed the followin. We spent some time discussing appropriate treatments. At this time, the patient would like to undergo evaluation for a repeat low back surgery. He would like to consider some options in the [facility]. We offered to make a referral if this is needed. He will reach out to us if he requires that referral. 2. We also discussed that he may need to undergo a CT myelogram, but this would need to be discussedwith the surgical team for further their recommendations. 3. We discussed that a repeat epidural injection might be indicated. In fact, I think a transforaminal injection at the L5 level on the left would be something that could be considered. He will let us know if this is something that he would like to pursue. All questions were answered. It was a pleasure interacting with the patient. Administrative Billing I personally spent a total of 53 minutes in [id number] time performing a review of the record and/or discussion with the patient/caregiver as described above. PATIENT EDUCATION Ready to learn, no apparent learning barriers were identified; learning preferences included listening. Explained diagnosis and treatment plan; patient expressed understanding of the content. I did not evaluate this patient in terms of causation, impairment, disability, or any relation of his/her current symptoms. Learning barriers were assessed and none were present. documented in this encounter Plan of Treatment Not on filedocumented as of this encounter Visit Diagnoses Diagnosis Pain Low Back Chronic - Primary Spondylitis (HCC) Spondylosis Lumbar Without Myelopathy Radiculopathy Lumbar documented in this encounter Additional Health Concerns Assessment Noted Time PHQ-9 Depression Total Score: 18 02/14/2013 9:53 AM CD T documented as of this encounter Care Teams Small Business Sales Representative Relationship Specialty Start Date End Date Cintia Cobb M.D. PCP - General 02/19/17 02/20/[address] [place] [phone] documented as of this encounter
--- OUTSIDE RECORDS SUMMARY | 2022-07-29 10:45 | XMS_ITS | Encounter Summary ---
:1960 Author Organization [facility] Address [address] [place] [address] Care Team Providers Name Role Phone Cintia Cobb M.D. Primary Care Provider [phone] Reason for Visit Reason Comments Med Refill Encounter Details Date Type Department Care Team Description 09/20/2020 Refill Department of Infusion Cintia Cobb Med Refill Therapy in Feliz Arellano M.D. [address] [phone] (Wo rk) Social History Tobacco Use Types [...] documented as of this encounter Care Teams Formal Wear Rental Clerk Relationship Specialty Start Date End Date Cintia Cobb M.D. PCP - General 02/19/17 02/20/[address] [place] [phone] documented as of this encounter
--- OUTSIDE RECORDS SUMMARY | 2022-07-29 10:45 | XMS_ITS | Encounter Summary ---
:1960 Author Organization [facility] Address [address] [place] [address] Care Team Providers Name Role Phone Cintia Cobb M.D. Primary Care Provider [phone] Encounter Details Date Type Department Care Team Description 04/26/2020 Orders Only Department of [facility] Angélica Cobb Medicine, Jose Daniel Piper M.D. Clinic, in [address] [address] [place], [place] [phone] (W ork) [address] [phone] Social History Tobacco Use Types Packs/Day Years [...] documented as of this encounter Care Teams Mid Teacher Relationship Specialty Start Date End Date Cintia Cobb M.D. PCP - General 02/19/17 02/20/[address] [place] [phone] documented as of this encounter
--- OUTSIDE RECORDS SUMMARY | 2022-07-29 10:46 | XMS_ITS | Encounter Summary ---
:1960 Author Organization [facility] Address [address] [place] [address] Care Team Providers Name Role Phone Cintia Cobb M.D. Primary Care Provider [phone] Encounter Details Date Type Department Care Team Description 04/06/2020 Hospital Encounter Department of Kacie Huerta Fract ure Hip Closed Radiology in [facility] C.N.P., Initial Left (HCC) [place], [place] D.N.P. [address] [place] [phone] Social History Tobacco Use Types Packs/Day [...] Priority Date/Time Associated Comments Diagnosis DX HIP AND PELVIS RAD - Routine 04/06/2020 5:12 Fracture Hip Result s for this LEFT 2-3 VIEWS (most inpatients PM CDT Closed Initial procedu re are in and all Left (HCC) the results outpatients) section. documented in this encounter Results DX Hip And Pelvis Left 2-3 Views (04/06/2020 5:12 PM CDT) Anatomical Region Laterality Modality Lower Extremity, Pelvis, Hip, Musculoskeletal RST LOS, Left Digital Radiography Musculoskeletal ARZ LOS, Muskuloskeletal FLA LOS Specimen (Source) Anatomical Collection Method Collection Time Re ceived Time Location / / Volume Laterality 04/07/2020 11:48 AM CDT Impressions 04/07/2020 11:49 AM CDT Stable postoperative changes of proximal intramedullary ovidio and screw fixation across left intertrochant ruben femur fracture. Hardware is intact. Stable degenerative changes at the left hip joint. No evidence for acute fracture or traumatic malalignment. Stab le mild degenerative change at the right hip. Stable lumbosacral spondylosis. Narrative 04/07/2020 11:49 AM CDT EXAM: DX HIP AND PELVIS LEFT 2-3 VIEWS COMPARISON: 01/11/2020 Procedure Note Jamal Montenegro M.D. - 04/07/2020Formattin g of this note might be different from the original. EXAM: DX HIP AND PELVIS LEFT 2-3 VIEWS COMPARISON: 01/11/2020 IMPRESSION: Stable postoperative changes of proximal intramedullary ovidio and screw fixation across left intertrochant ruben femur fracture. Hardware is intact. Stable degenerative changes at the left hip joint. No evidence for acute fracture or traumatic malalignment. Stab le mild degenerative change at the right hip. Stable lumbosacral spondylosis. Kalia Grant APRN.N.P., D.N.P. IMG DIAGNOSTIC IMAG ING PROCEDURES documented in this encounter Visit Diagnoses Diagnosis Fracture Hip Closed Initial Left (HCC) documented in this encounter Additional Health Concerns Assessment Noted Time PHQ-9 Depression Total Score: 18 02/14/2013 9:53 AM CD T documented as of this encounter Care Teams Hand Trimmer Relationship Specialty Start Date End Date Cintia Cobb M.D. PCP - General 02/19/17 02/20/22 [id number] [address] [place] [phone] documented as of this encounter
--- OUTSIDE RECORDS SUMMARY | 2022-07-29 10:46 | XMS_ITS | Encounter Summary ---
:1960 Author Organization [facility] Address [address] [place] [address] Care Team Providers Name Role Phone Cintia Cobb M.D. Primary Care Provider [phone] Reason for Visit Reason Comments PT Progress Note Encounter Details Date Type Department Care Team Description 01/02/2020 Clinical Department of [facility], PT Progress No te Communication Rehabilitation Lesli Oakes Services in [address], [address] [place] [phone] Social History Tobacco Use Types Packs/Day Years [...] documented as of this encounter Care Teams Ramp And Cargo Supervisor Relationship Specialty Start Date End Date Cintia Cobb M.D. PCP - General 02/19/17 02/20/[address] [place] [phone] documented as of this encounter
--- OUTSIDE RECORDS SUMMARY | 2022-07-29 10:46 | XMS_ITS | Encounter Summary ---
:1960 Author Organization [facility] Address [address] [place] [address] Care Team Providers Name Role Phone Cintia Cobb M.D. Primary Care Provider [phone] Reason for Visit Reason Comments Appointment Encounter Details Date Type Department Care Team Description 11/29/2019 Clinical Communication Department of Kacie Huerta A ppointment Orthopedic Surgery in [facility] [place] D[place]P. [address] [facility] [address] [place] [phone] Social History Tobacco Use Types Packs/Day Years Used Date Smoking Tobacco: Never Smokeless Tobacco: Never Alcohol Use Standard Drinks/Week Comments No 0 (1 standard drink = 0.6 oz pure alcoho l) Sex Assigned at Date Recorded Not on file documented as of this encounter Miscellaneous Notes Telephone Encounter - Suzie Quan R.N. - 11/29/2019 11:06 AM CDT Patient was contacted to notify them that their appointment with Kacie Huerta DNP on 12/27/2019 in [place] has been changed to a phone consultation due to COVID-19 pandemic. Patient will be contacted by phone by an orthopedic provider near their visit time. Patient verbalizes understanding and will send portal message or contact the clinic via phone if they have any questions or concerns in the meantime. documented in this encounter Plan of Treatment Not on filedocumented as of this encounter Visit Diagnoses Not on filedocumented in this encounter Additional Health Concerns Assessment Noted Time PHQ-9 Depression Total Score: 18 02/14/2013 9:53 AM CD T documented as of this encounter Care Teams Customs Agent Relationship Specialty Start Date End Date Cintia Cobb M.D. PCP - General 02/19/17 02/20/[address] [place] [phone] documented as of this encounter
--- OUTSIDE RECORDS SUMMARY | 2022-07-29 10:46 | XMS_ITS | Encounter Summary ---
:1960 Author Organization [facility] Address [address] [place] [address] Care Team Providers Name Role Phone Cintia Cobb M.D. Primary Care Provider [phone] Encounter Details Date Type Department Care Team Description 12/26/2019 Orders Only Department of [facility] Yady Cobb Hip Closed MedicineJose Daniel M.D. Initial Left (HCC) [facility], in [address] [place] [address] (Primary Dx) [address] [address] [place], [place] [phone] (W ork) [phone] Social History Tobacco Use Types Packs/Day Years Used Date Smoking Tobacco: Never Smokeless Tobacco: Never Alcohol Use Standard Drinks/Week Comments No 0 (1 standard drink = 0.6 oz pure alcoho l) Sex Assigned at Date Recorded Not on file documented as of this encounter Plan of Treatment Not on filedocumented as of this encounter Visit Diagnoses Diagnosis Fracture Hip Closed Initial Left (HCC) - Primary documented in this encounter Additional Health Concerns Assessment Noted Time PHQ-9 Depression Total Score: 18 02/14/2013 9:53 AM CD T documented as of this encounter Care Teams Side Show Entertainer Relationship Specialty Start Date End Date Cintia Cobb M.D. PCP - General 02/19/17 02/20/[address] [place] [phone] documented as of this encounter
--- OUTSIDE RECORDS SUMMARY | 2022-07-29 10:46 | XMS_ITS | Encounter Summary ---
:1960 Author Organization [facility] Address [address] [place] [address] Care Team Providers Name Role Phone Cintia oCbb M.D. Primary Care Provider [phone] Reason for Visit Physical Therapy (Routine) - Canceled Specialty Diagnoses / Procedures Referred By Contact Refer red To Contact Diagnoses Follow Up Examination Postoperative Visit Fracture Hip Intertrochanteric Closed Initial Left (HCC) Kacie Huerta APRN, [facility] Procedures PT Ongoing treatment C.N.P., D.N.P. [address] [place] [phone] Referral ID Status Reason Start Date Expiration Date Visits V isits Requested Authorized [id number] Canceled 10/13/2019 10/12/2020 99 99 Encounter Details Date Type Department Care Team Description 11/23/2019 Clinical Department of Kacie Huerta APRN, C.N.P., D.N.P. [address] [place] [phone] Follow Up Examination Postoperative Visi t; Support Rehabilitation Lesli Dias P.TPili [address] [place] [phone] Fracture Hip Intertrochanteric Closed In itial Left (HCC) Services in [address] [place] [phone] Social History Tobacco Use Types Packs/Day Years Used Date Smoking Tobacco: Never Smokeless Tobacco: Never Alcohol Use Standard Drinks/Week Comments No 0 (1 standard drink = 0.6 oz pure alcoho l) Sex Assigned at Date Recorded Not on file documented as of this encounter Progress Notes Lesli Dias P.T. - 11/23/2019 4:00 PM CDT Physical Therapy Outpatient Treatment Note SUBJECTIVE Patient's Name: Laz Cuauhtemoc Luna Referring Provider: Kacie Huerta APRN, C.* Visit Diagnosis: 1. Follow Up Examination Postoperative Visit 2. Fracture Hip Intertrochanteric Closed Initial Left (HCC) Reason for Referral: PT eval and treat Onset Date: 08/12/19 Payor: [facility] / Plan: BCBS BLUE PLUS HMO / Product Type: Medicaid HMO / No data recorded Epic Visit Count: 11 Patient comments: patient has no new complaints. OBJECTIVE Pain: Patient does have soreness at times. Continues to note hip abductor weakness. However this is improving significantly. TREATMENT Treatment today consisted of: Perform the [employer]-Fit Total body ergometer times 10 minutes at a level 3 resistance. Performed forwardand lateral step-ups on a 6 in step at 2 x 10 repetitions. Performed squatting at 20 repetitions. Performed standing hip abduction with an blue Thera-Band around the ankles 30 repetitions. Performed squatted sidestepping within the parallel bars. Leg press 20 pounds x 30 reps in a protected ROM. Tandem stance performed with cervical head movements able to maintain with ankle reaction noted. Tandem stance with eyes closed moderate trunk sway with occasional contact guard assist and reaching for balance as well for stability. Home Exercise Program/Education: Patient will continue with his strengthening program. He will continue to use a cane for ambulation due to mild trendelenburg gait pattern. Pt reports good compliance with his HEP. Assessment Clinical Impression: Patient continues to demonstrate improved strength and endurance. Patient will continue to benefit from skilled physical therapy for additional strengthening and gait training as well as high-level balance training in order to return to previous level of function. Functional Goals and Timeframes: PT Goal #1: Patient will climb up/down 13 steps at home with use of one rail and minimal left hip pain. PT Goal #1 Date: 12/08/19 PT Goal #2: Patient will ambulate with least restrictive assistive device with normal gait pattern and minimal left hip pain. PT Goal #2 Date: 12/08/19 PT Goal #3: Patient will demonstrate ability to self-manage his HEP. PT Goal #3 Date: 12/08/19 Plan Plan for next session: Continue with strengthening, gait balance training. Time Spent with Patient Gait Training (min): 5 min Therapeutic Exercise (min): 25 min Time Calculation Total Timed Units (min): 30 min Total Treatment Time (min): 30 min Lesli Dias P.T. Department of Rehabilitation Services in [address] [address] Dept: [phone] documented in this encounter Plan of Treatment Not on filedocumented as of this encounter Visit Diagnoses Diagnosis Follow Up Examination Postoperative Visi t Fracture Hip Intertrochanteric Closed In itial Left (HCC) documented in this encounter Additional Health Concerns Assessment Noted Time PHQ-9 Depression Total Score: 18 02/14/2013 9:53 AM CD T documented as of this encounter Care Teams Drilling Field Specialist Relationship Specialty Start Date End Date Cintia Cobb M.D. PCP - General 02/19/17 02/20/[address] [place] [phone] documented as of this encounter
--- OUTSIDE RECORDS SUMMARY | 2022-07-29 10:46 | XMS_ITS | Encounter Summary ---
:1960 Author Organization [facility] Address [address] [place] [address] Care Team Providers Name Role Phone Cintia Cobb M.D. Primary Care Provider Encounter Details Date Type Department Care Team Description 04/06/2020 Clinical Communication Department of [facility], Jose Daniel Piper M.D. [address] [address] [place], [place] [phone] (Work) [phone] Social History Tobacco Use Types Packs/Day Years Used Date Smoking Tobacco: Never Smokeless Tobacco: Never Alcohol Use Standard Drinks/Week Comments No 0 (1 standard drink = 0.6 oz pure alcoho l) Sex Assigned at Date Recorded Not on file documented as of this encounter Miscellaneous Notes Telephone Encounter - Eli Enrique Abby - 04/06/2020 3:04 PM CDT ([facility] and [facility] locations only: If the patient is not having symptoms and is requesting COVID-19 Nasal Swab testing only, use the process listed in the COVID-19 Patient Requesting COVID PCR Test OTG COVID-19 [place] Patient Requesting COVID PCR Test). 1. Do you have a pending COVID test because you had symptoms or exposure to someone with COVID or you have tested positive for COVID in the last 30 days? no 2. In the past 14 days, do you, anyone in the household, or anyone you have had prolonged exposure have any of the following? a. Fever greater than or equal to 37.8 C (100.0 F)? no b. New symptoms (Specifically: headache, cough, shortness of breath, respiratory distress, sore throat, diarrhea, nausea, vomiting, chills and repeated shaking with chills, myalgia's (muscle aches), loss of smell, or change or loss of taste sensation)? no c. Had close contact with a patient with known or possible COVID-19 in the last 14 days? no documented in this encounter Plan of Treatment Not on filedocumented as of this encounter Visit Diagnoses Not on filedocumented in this encounter Additional Health Concerns Assessment Noted Time PHQ-9 Depression Total Score: 18 02/14/2013 9:53 AM CD T documented as of this encounter Care Teams Engine Repairer Service Relationship Specialty Start Date End Date Cintia Cobb M.D. PCP - General 02/19/17 02/20/[address] [place] [phone] documented as of this encounter
--- OUTSIDE RECORDS SUMMARY | 2022-07-29 10:46 | XMS_ITS | Encounter Summary ---
:1960 Author Organization [facility] Address [address] [place] [address] Care Team Providers Name Role Phone Cintia Cobb M.D. Primary Care Provider [phone] Reason for Visit Reason Comments PT Progress Note Encounter Details Date Type Department Care Team Description 12/01/2019 Clinical Department of [place], DEVANTE Progress No te Communication Rehabilitation Lesli Oakes Services in [address], [address] [place] [phone] Social History Tobacco Use Types Packs/Day Years Used Date Smoking Tobacco: Never Smokeless Tobacco: Never Alcohol Use Standard Drinks/Week Comments No 0 (1 standard drink = 0.6 oz pure alcoho l) Sex Assigned at Date Recorded Not on file documented as of this encounter Miscellaneous Notes Telephone Encounter - Lesli Dias, P.T. - 12/01/2019 2:39 PM CDT Phone call provided to patient and HEP is going well. No new exercises needed today. Will follow up next week. documented in this encounter Plan of Treatment Not on filedocumented as of this encounter Visit Diagnoses Not on filedocumented in this encounter Additional Health Concerns Assessment Noted Time PHQ-9 Depression Total Score: 18 02/14/2013 9:53 AM CD T documented as of this encounter Care Teams Book Sewing Machine Operator Relationship Specialty Start Date End Date Cintia Cobb M.D. PCP - General 02/19/17 02/20/[id number] [phone] documented as of this encounter
--- OUTSIDE RECORDS SUMMARY | 2022-07-29 10:46 | XMS_ITS | Encounter Summary ---
:1960 Author Organization [facility] Address [address] [place] [address] Care Team Providers Name Role Phone Cintia Cobb M.D. Primary Care Provider [phone] Reason for Visit Physical Therapy (Routine) - Canceled Specialty Diagnoses / Procedures Referred By Contact Refer red To Contact Diagnoses Follow Up Examination Postoperative Visit Fracture Hip Intertrochanteric Closed Initial Left (HCC) Kacie Huerta APRN, [facility] Procedures PT Ongoing treatment C.N.P., D.N.P. [address] [place] [phone] Referral ID Status Reason Start Date Expiration Date Visits V isits Requested Authorized [id number] Canceled 10/13/2019 10/12/2020 99 99 Encounter Details Date Type Department Care Team Description 11/17/2019 Clinical Department of Kacie Huerta APRN, C.N.P., D.N.P. [address] [place] [phone] Follow Up Examination Postoperative Visi t; Support Rehabilitation Lesli Dias P.TPili [address] [place] [phone] Fracture Hip Intertrochanteric Closed In itial Left (HCC) Services in [address] [place] [phone] Social History Tobacco Use Types Packs/Day Years Used Date Smoking Tobacco: Never Smokeless Tobacco: Never Alcohol Use Standard Drinks/Week Comments No 0 (1 standard drink = 0.6 oz pure alcoho l) Sex Assigned at Date Recorded Not on file documented as of this encounter Progress Notes Lesli Dias P.T. - 11/17/2019 4:00 PM CDT Physical Therapy Outpatient Treatment Note SUBJECTIVE Patient's Name: Laz Cuauhtemoc Luna Referring Provider: Kacie Huerta APRN, C.* Visit Diagnosis: 1. Follow Up Examination Postoperative Visit 2. Fracture Hip Intertrochanteric Closed Initial Left (HCC) Reason for Referral: PT eval and treat Onset Date: 08/12/19 Payor: [facility] / Plan: [place] BLUE PLUS HMO / Product Type: Medicaid HMO / No data recorded Epic Visit Count: 10 Patient comments: patient has no new complaints. He reports he added the seated hip abduction [facility] and this went well. OBJECTIVE Pain: Generalized muscle soreness. TREATMENT Treatment today consisted of: Perform the Sci-Fit Total body ergometer times 8 minutes at a level 3 resistance. Performed forward and lateral step-ups on a 6 in step at 2 x 10 repetitions. Perform marching and squatting at 2 x 10 repetitions bilaterally. Performed standing hip abduction with an orange Thera-Band around the ankles 3 x 10 repetitions. Performed sidestepping within the parallel bars. Patient ambulated short distancewithout the use of a straight cane. He still demonstrates mild Trendelenburg gait pattern. Recommenduse of a cane at all times to normalize gait pattern reduce fall risk. Home Exercise Program/Education: Patient will continue current home exercise program. Pt reports good compliance with his HEP. Assessment Clinical Impression: Patient is tolerating treatment session well. Patient is demonstrating improvedstrength and function. Patient continues to demonstrate hip abductor weakness will continue to benefit from skilled physical therapy for progression of his home program. Functional Goals and Timeframes: PT Goal #1: [...] Plan Plan for next session: Continue with progression of strengthening. Time Spent with Patient Gait Training (min): 8 min Therapeutic Exercise (min): 18 min Time Calculation Total Timed Units (min): 26 min Total Treatment Time (min): 26 min Lesli Dias P.T. Department of Rehabilitation Services in [address] [phone] Dept: [phone] documented in this encounter Plan of Treatment Not on filedocumented as of this encounter Visit Diagnoses Diagnosis Follow Up Examination Postoperative Visi t Fracture Hip Intertrochanteric Closed In itial Left (HCC) documented in this encounter Additional Health Concerns Assessment Noted Time PHQ-9 Depression Total Score: 18 02/14/2013 9:53 AM CD T documented as of this encounter Care Teams Logger Relationship Specialty Start Date End Date Cintia Cobb M.D. PCP - General 02/19/17 02/20/[address] [place] [phone] documented as of this encounter
--- OUTSIDE RECORDS SUMMARY | 2022-07-29 10:46 | XMS_ITS | Encounter Summary ---
:1960 Author Organization [facility] Address [address] [place] [address] Care Team Providers Name Role Phone Cintia Cobb M.D. Primary Care Provider [phone] Encounter Details Date Type Department Care Team Description 04/06/2020 Hospital Encounter Department of Kacie Huerta, Pain Knee Left Radiology in [facility], [place], [place] D.N.P. [address] [place] [phone] Social History Tobacco Use Types Packs/Day [...] Date/Time Associated Comments Diagnosis DX KNEE LEFT 3 RAD - Routine 04/06/2020 5:07 Pain Knee Left Results for this VIEWS (most inpatients PM CDT procedure a re in and all the results outpatients) section. documented in this encounter Results DX Knee Left 3 Views (04/06/2020 5:07 PM CDT) Anatomical Region Laterality Modality Lower Extremity, Knee, Musculoskeletal RST LOS, Left Digital Radiography Musculoskeletal ARZ LOS, Muskuloskeletal FLA LOS Specimen (Source) Anatomical Collection Method Collection Time Re ceived Time Location / / Volume Laterality 04/07/2020 11:47 AM CDT Impressions 04/07/2020 11:47 AM CDT Demineralized bones. No acute appreciable fracture or traumatic malalignment. Preserved joint spaces. Ch ondrocalcinosis. No significant joint effusion. Arteriovascular calcifications . Narrative 04/07/2020 11:47 AM CDT EXAM: DX KNEE LEFT 3 VIEWS COMPARISON: None Procedure Note Jamal Montenegro M.D. - 04/07/2020Formattin g of this note might be different from the original. EXAM: DX KNEE LEFT 3 VIEWS COMPARISON: None IMPRESSION: Demineralized bones. No acute appreciabl e fracture or traumatic malalignment. Preserved joint spaces. Ch ondrocalcinosis. No significant joint effusion. Arteriovascular calcifications . Kacie Huerta APRN, C.N.P., D.N.P. IMG DIAGNOSTIC IMAG ING PROCEDURES documented in this encounter Visit Diagnoses Diagnosis Pain Knee Left documented in this encounter Additional Health Concerns Assessment Noted Time PHQ-9 Depression Total Score: 18 02/14/2013 9:53 AM CD T documented as of this encounter Care Teams Theatre Program Director Relationship Specialty Start Date End Date Cintia Cobb M.D. PCP - General 02/19/17 02/20/[phone] [place] [phone] documented as of this encounter
--- OUTSIDE RECORDS SUMMARY | 2022-07-29 10:46 | XMS_ITS | Encounter Summary ---
:1960 Author Organization [facility] Address [address] [place] [address] Care Team Providers Name Role Phone Cintia Cobb M.D. Primary Care Provider [phone] Reason for Visit Physical Therapy (Routine) - Canceled Specialty Diagnoses / Procedures Referred By Contact Refer red To Contact Diagnoses Follow Up Examination Postoperative Visit Fracture Hip Intertrochanteric Closed Initial Left (HCC) Kacie Huerta APRN, [facility] Procedures PT Ongoing treatment C.N.P., D.N.P. [address] [place] [phone] Referral ID Status Reason Start Date Expiration Date Visits V isits Requested Authorized [id number] Canceled 10/13/2019 10/12/2020 99 99 Encounter Details Date Type Department Care Team Description 02/01/2020 Clinical Department of Kacie Huerta APRN, C.N.P., D.N.P. [address] [place] [phone] Follow Up Examination Postoperative Visi t; Support Rehabilitation Lesli Dias P.TPili [address] [place] [phone] Fracture Hip Intertrochanteric Closed In itial Left (HCC) Services in [address] [place] [phone] Social History Tobacco Use Types Packs/Day Years Used Date Smoking Tobacco: Never Smokeless Tobacco: Never Alcohol Use Standard Drinks/Week Comments No 0 (1 standard drink = 0.6 oz pure alcoho l) Sex Assigned at Date Recorded Not on file documented as of this encounter Progress Notes Lesli Dias P.T. - 02/01/2020 3:00 PM CDT Physical Therapy Outpatient Treatment Note SUBJECTIVE Patient's Name: Laz Cuauhtemoc Luna Referring Provider: Kacie Huerta APRN, C.* Visit Diagnosis: 1. Follow Up Examination Postoperative Visit 2. Fracture Hip Intertrochanteric Closed Initial Left (HCC) Reason for Referral: PT eval and treat Onset Date: 08/12/19 Payor: [facility] C[facility] / Plan: [facility] BLUE PLUS HMO / Product Type: Medicaid HMO / No data recorded Epic Visit Count: 16 Patient comments: Patient reports stiffness and difficulty bending down to wipe off his leg. OBJECTIVE Pain: soreness and stiffness TREATMENT Treatment today consisted of: Performed the Sci-Fit level 4 x 15 minutes. Leg press in a protected ROM at 90# with the bilateral LE's 3 x 25 reps. Seated hip abduction with the bilateral LE's 40# 2 x 30 reps. Forward and lateral step ups on a 6 inch step at 3 x 10 reps. Standing squats 3 x 10 reps. Tandem stance 3 x 30 seconds. ?? Home Exercise Program/Education: Patient will continue with current home program. Pt reports good compliance with his HEP. Contact monitoring: PPE used during therapy: Therapist was wearing the following PPE throughout entire session: surgicalmask, eye protection and gloves Patient was wearing a mask during therapy session: yes Additional Staff Present During Session: no Patient's significant other present and wearing a mask throughout session. Assessment Clinical Impression: Tolerated well. He continues to demonstrate weakness and decreased gait stability. He should continue to use a straight cane at all times to minimize fall risk. He will continue tobenefit from skilled therapy to address strength, gait and balance deficits to return to previous level of function. Functional Goals and Timeframes: PT Goal #1: Patient will climb up/down 13 steps at home with use of one rail and minimal left hip pain. PT Goal #1 Date: 03/02/20 PT Goal #2: Patient will ambulate safely and independently with a normal gait pattern without the use of assistive device on level ground. PT Goal #2 Date: 03/02/20 PT Goal #3: Patient will demonstrate hip strength at 5/5. PT Goal #3 Date: 03/02/20 PT Goal #4: Patient will note resolution of pain. PT Goal #4 Date: 03/02/20 Plan Plan for next session: Progression of strength and balance. Time Spent with Patient Therapeutic Exercise (min): 40 min Time Calculation Total Timed Units (min): 40 min Total Treatment Time (min): 40 min Lesli Dias P.T. Department of Rehabilitation Services in [address] [address] Dept: [phone] documented in this encounter Plan of Treatment Not on filedocumented as of this encounter Visit Diagnoses Diagnosis Follow Up Examination Postoperative Visi t Fracture Hip Intertrochanteric Closed In itial Left (HCC) documented in this encounter Additional Health Concerns Assessment Noted Time PHQ-9 Depression Total Score: 18 02/14/2013 9:53 AM CD T documented as of this encounter Care Teams Correspondence Clerk Relationship Specialty Start Date End Date Cintia Cobb M.D. PCP - General 02/19/17 02/20/[address] [place] [phone] documented as of this encounter
--- OUTSIDE RECORDS SUMMARY | 2022-07-29 10:46 | XMS_ITS | Encounter Summary ---
:1960 Author Organization [facility] Address [address] [place] [address] Care Team Providers Name Role Phone Cintia Cobb M.D. Primary Care Provider [phone] Reason for Visit Reason Comments PT Progress Note Encounter Details Date Type Department Care Team Description 01/13/2020 Clinical Department of [facility], PT Progress No te Communication Rehabilitation Lesli Oakes Services in [address], [address] [place] [phone] Social History Tobacco Use Types Packs/Day Years [...] as of this encounter Care Teams Manager Training Relationship Specialty Start Date End Date Cintia Cobb M.D. PCP - General 02/19/17 02/20/[address] [place] [phone] documented as of this encounter
--- OUTSIDE RECORDS SUMMARY | 2022-07-29 10:46 | XMS_ITS | Encounter Summary ---
:1960 Author Organization [facility] Address [address] [place] [address] Care Team Providers Name Role Phone Cintia Cobb M.D. Primary Care Provider [phone] Reason for Visit Physical Therapy (Routine) - Closed Specialty Diagnoses / Procedures Referred By Contact Refer red To Contact Diagnoses Pain Shoulder Right [facility] Cobb [facility] Procedures PT Evaluate and treat Keely Piper [address] [place] [phone] Referral ID Status Reason Start Date Expiration Date Visits Requ ested Visits Authorized [id number] Closed 11/08/2019 11/07/2020 1 1 Encounter Details Date Type Department Care Team Description 01/25/2020 Comprehensive Visit Department of Song Cintia Jorgensen M.D. [address] [place] [phone] Pain Shoulder Rehabilitation Lesli Dias P.T. [address] [phone] Right Services in [address] [phone] Social History Tobacco Use Types Packs/Day Years Used Date Smoking Tobacco: Never Smokeless Tobacco: Never Alcohol Use Standard Drinks/Week Comments No 0 (1 standard drink = 0.6 oz pure alcoho l) Sex Assigned at Date Recorded Not on file documented as of this encounter Progress Notes Lesli Dias P.T. - 01/25/2020 3:00 PM CDT Physical Therapy Outpatient Treatment Note SUBJECTIVE Patient's Name: Laz Cuauhtemoc Luna Referring Provider: Cintia Elizondo* Visit Diagnosis: 1. Pain Shoulder Right Reason for Referral: PT eval and treat Onset Date: 08/12/19 Payor: [employer] [place] CARE / Plan: [employer] BLUE PLUS HMO / Product Type: Medicaid HMO / No data recorded Epic Visit Count: 15 Patient comments: Patient reports good days and bad days. He tolerated our last session well. OBJECTIVE Pain: intermittent pain, pt unable to rate on pain scale. TREATMENT Treatment today consisted of: Performed the Sci-Fit level 2 x 16 minutes. Leg press in a protected ROM at 90# with the bilateral LE's 2 x 25 reps. Seated hip abduction with the bilateral LE's 40# 2 x 30 reps. Forward and lateral step ups on a 6 inch step at 2 x 10 reps. Standing squats 2 x 10 reps. Home Exercise Program/Education: Patient will continue with home program and ambulation with cane. Pt reports good compliance with his HEP. Contact monitoring: PPE used during therapy: Therapist was wearing the following PPE throughout entire session: surgicalmask, eye protection and gloves Patient was wearing a mask during therapy session: yes Additional Staff Present During Session: no Patient's spouse present and wearing a mask throughout session. Assessment Clinical Impression: Tolerated session well. Patient will continue to benefit from skilled therapy for progression of strengthening. Functional Goals and Timeframes: PT Goal #1: [...] Date: 03/02/20 Plan Plan for next session: Continue with strengthening. Time Spent with Patient Therapeutic Exercise (min): 45 min Time Calculation Total Timed Units (min): 45 min Total Treatment Time (min): 45 min Lesli Dias P.T. Department of Rehabilitation Services in [address] [address] Dept: [phone] documented in this encounter Plan of Treatment Not on filedocumented as of this encounter Visit Diagnoses Diagnosis Pain Shoulder Right documented in this encounter Additional Health Concerns Assessment Noted Time PHQ-9 Depression Total Score: 18 02/14/2013 9:53 AM CD T documented as of this encounter Care Teams Channel Business Manager Relationship Specialty Start Date End Date Cintia Cobb M.D. PCP - General 02/19/17 02/20/[address] [place] [phone] documented as of this encounter
--- OUTSIDE RECORDS SUMMARY | 2022-07-29 10:46 | XMS_ITS | Encounter Summary ---
:1960 Author Organization [facility] Address [address] [place] [address] Care Team Providers Name Role Phone Cintia Cobb M.D. Primary Care Provider [phone] Reason for Visit Reason Comments PT Progress Note Encounter Details Date Type Department Care Team Description 12/08/2019 Clinical Department of [place], PT Progress No te Communication Rehabilitation Lesli Oakes Services in [address], [address] [place] [phone] Social History Tobacco Use Types Packs/Day Years Used Date Smoking Tobacco: Never Smokeless Tobacco: Never Alcohol Use Standard Drinks/Week Comments No 0 (1 standard drink = 0.6 oz pure alcoho l) Sex Assigned at Date Recorded Not on file documented as of this encounter Miscellaneous Notes Telephone Encounter - Lesli Dias P.T. - 12/08/2019 11:58 AM CDT Left message with at patient's request. She reports he is having a difficult time with a drug interaction but is working on it with his primary care provider. He is working on his home exercises daily. He also continues to use the straight cane for ambulation. Recommend continued use of cane and home exercise program daily. Will follow up in 1 week. documented in this encounter Plan of Treatment Not on filedocumented as of this encounter Visit Diagnoses Not on filedocumented in this encounter Additional Health Concerns Assessment Noted Time PHQ-9 Depression Total Score: 18 02/14/2013 9:53 AM CD T documented as of this encounter Care Teams Industrial Organizational Psychologist Relationship Specialty Start Date End Date Cintia Cobb M.D. PCP - General 02/19/17 02/20/[id number] [place] [phone] documented as of this encounter
--- OUTSIDE RECORDS SUMMARY | 2022-07-29 10:46 | XMS_ITS | Encounter Summary ---
:1960 Author Organization [facility] Address [address] [place] [address] Care Team Providers Name Role Phone Cintia Cobb M.D. Primary Care Provider [phone] Reason for Visit Reason Onset Date Comments diabetic supplies 11/09/2019 Encounter Details Date Type Department Care Team Description 11/09/2019 Clinical Communication Department of [place] [facility] supplies [facility] [place] [facility], M.[facility], in [address] [address] [place], [place] [phone] (Work) [phone] Social History Tobacco Use Types Packs/Day Years Used Date Smoking Tobacco: Never Smokeless Tobacco: Never Alcohol Use Standard Drinks/Week Comments No 0 (1 standard drink = 0.6 oz pure alcoho l) Sex Assigned at Date Recorded Not on file documented as of this encounter Miscellaneous Notes Telephone Encounter - Cintia Cobb M.D. - 11/09/2019 9:12 PM REJECT OPENER Script sent. CT OPENER Telephone Encounter - Aminata Hill L.PPiliNPili - 11/09/2019 2:22 PM REJECT OPENER Pharmacy called stating they received a prescription for test strips but also need an order for lancets and meter. Orders pended to PCP CT OPENER documented in this encounter Plan of Treatment Not on filedocumented as of this encounter Visit Diagnoses Not on filedocumented in this encounter Additional Health Concerns Assessment Noted Time PHQ-9 Depression Total Score: 18 02/14/2013 9:53 AM CD T documented as of this encounter Care Teams Laborer Syrup Machine Relationship Specialty Start Date End Date Cintia Cobb M.D. PCP - General 02/19/17 02/20/[address] [place] [phone] documented as of this encounter
--- OUTSIDE RECORDS SUMMARY | 2022-07-29 10:46 | XMS_ITS | Encounter Summary ---
:[address] [facility] Address [address] [place] [address] Care Team Providers Name Role Phone Cintia Cobb M.D. Primary Care Provider [phone] Reason for Visit Physical Therapy (Routine) - Canceled Specialty Diagnoses / Procedures Referred By Contact Refer red To Contact Diagnoses Follow Up Examination Postoperative Visit Fracture Hip Intertrochanteric Closed Initial Left (HCC) Kacie Huerta APRN, [facility] Procedures PT Ongoing treatment C.N.P., D.N.P. [address] [place] [phone] Referral ID Status Reason Start Date Expiration Date Visits V isits Requested Authorized [id number] Canceled 10/13/2019 10/12/2020 99 99 Encounter Details Date Type Department Care Team Description 11/15/2019 Clinical Department of Kacie Huerta APRN, C.N.P., D.N.P. [address] [place] [phone] Follow Up Examination Postoperative Visi t; Support Rehabilitation Lesli Dias P.TPili [address] [place] [phone] Fracture Hip Intertrochanteric Closed In itial Left (HCC) Services in [address] [place] [address] Social History Tobacco Use Types Packs/Day Years Used Date Smoking Tobacco: Never Smokeless Tobacco: Never Alcohol Use Standard Drinks/Week Comments No 0 (1 standard drink = 0.6 oz pure alcoho l) Sex Assigned at Date Recorded Not on file documented as of this encounter Progress Notes Lesli Dias P.T. - 11/15/2019 4:00 PM CDT Physical Therapy Outpatient Treatment Note SUBJECTIVE Patient's Name: Laz Cuauhtemoc Luna Referring Provider: Kacie Huerta APRN, C.* Visit Diagnosis: 1. Follow Up Examination Postoperative Visit 2. Fracture Hip Intertrochanteric Closed Initial Left (HCC) Reason for Referral: PT eval and treat Onset Date: 08/12/19 Payor: [facility] CARE / Plan: [facility] BLUE PLUS HMO / Product Type: Medicaid HMO / No data recorded Epic Visit Count: 9 Patient comments: Patient has no new complaints. He reports he was able to get up into his truck without difficulty. OBJECTIVE Pain: Muscle soreness noted. Patient ambulates with a cane at this time. When ambulating without the cane he demonstrates a mild Trendelenburg gait pattern. Recommended patient continue with a cane until this resolves. TREATMENT Treatment today consisted of: Perform the Sci-Fit Total body ergometer x8 minutes. We then performed forward and lateral step-ups on a 6 in step 20 repetitions each. Perform marching in place at 20 repetitions without upper extremity support. Perform standing hip abduction at 20 repetitions on the left lower extremity. Performed sidestepping within the parallel bars without upper extremity support. Performed modified tandem stance 4 times 30 seconds. Worked on gait training, patient continues to demonstrate a mild Trendelenburg gait pattern. Patient is safest to utilize the cane at this time due to gait pattern. Home Exercise Program/Education: Patient will continue current home exercise program. He may performseated hip abduction in [facility] at this time with the lowest resistance. Pt reports good compliance with his HEP. Assessment Clinical Impression: Patient tolerated treatment session well. Patient is demonstrating improved strength and mobility. Patient is now able to get up into his truck without difficulty. Patient does continue to demonstrate gluteus medius weakness. Patient continue to benefit from skilled physical therapy to regain functional strength and restore normal gait pattern. Functional Goals and Timeframes: PT [...] Dias P.T. Department of Rehabilitation Services in [address] [address] Dept: [phone] documented in this encounter Plan of Treatment Not on filedocumented as of this encounter Visit Diagnoses Diagnosis Follow Up Examination Postoperative Visi t Fracture Hip Intertrochanteric Closed In itial Left (HCC) documented in this encounter Additional Health Concerns Assessment Noted Time PHQ-9 Depression Total Score: 18 02/14/2013 9:53 AM CD T documented as of this encounter Care Teams Labor Contract Analyst Relationship Specialty Start Date End Date Cintia Cobb M.D. PCP - General 02/19/17 02/20/[address] [place] [phone] documented as of this encounter
--- OUTSIDE RECORDS SUMMARY | 2022-07-29 10:46 | XMS_ITS | Encounter Summary ---
:1960 Author Organization [facility] Address [address] [place] [address] Care Team Providers Name Role Phone Cintia Cobb M.D. Primary Care Provider [phone] Reason for Visit Reason Comments Communication Encounter Details Date Type Department Care Team Description 01/06/2020 Clinical Communication Department of Kacie Huerta C ommunication Orthopedic Surgery in [facility] [place] D.N.P. [address] [facility] [address] [place] [phone] Social History Tobacco Use Types Packs/Day Years Used Date Smoking Tobacco: Never Smokeless Tobacco: Never Alcohol Use Standard Drinks/Week Comments No 0 (1 standard drink = 0.6 oz pure alcoho l) Sex Assigned at Date Recorded Not on file documented as of this encounter Miscellaneous Notes Telephone Encounter - Suzie Quan R.N. - 01/06/2020 1:45 PM CDT Returned call to Magali, he will follow up next week with Kacie Huerta on 01/10. Telephone Encounter - Lesli Guillen - 01/06/2020 12:43 PM CDT Magali called. Physical therapist is suggesting that Ed have a new x-ray to recheck left hip. They would like to reassess if it is truly the hip that is giving him problems or if it is the back. documented in this encounter Plan of Treatment Not on filedocumented as of this encounter Visit Diagnoses Not on filedocumented in this encounter Additional Health Concerns Assessment Noted Time PHQ-9 Depression Total Score: 18 02/14/2013 9:53 AM CD T documented as of this encounter Care Teams Painter Helper Relationship Specialty Start Date End Date Cintia Cobb M.D. PCP - General 02/19/17 02/20/[id number] [place] [phone] documented as of this encounter
--- OUTSIDE RECORDS SUMMARY | 2022-07-29 10:46 | XMS_ITS | Encounter Summary ---
:1960 Author Organization [facility] Address [address] [place] [address] Care Team Providers Name Role Phone Cintia Cobb M.D. Primary Care Provider [phone] Reason for Visit Reason Comments PT Progress Note Encounter Details Date Type Department Care Team Description 11/29/2019 Clinical Department of Larissa, PT Progress No te Communication Rehabilitation Lesli Oakes Services in [address], [address] [place] [phone] Social History Tobacco Use Types Packs/Day Years Used Date Smoking Tobacco: Never Smokeless Tobacco: Never Alcohol Use Standard Drinks/Week Comments No 0 (1 standard drink = 0.6 oz pure alcoho l) Sex Assigned at Date Recorded Not on file documented as of this encounter Miscellaneous Notes Telephone Encounter - Lesli Dias PPiliT. - 11/29/2019 11:03 AM CDT Patient was contacted via telephone for follow-up. Patient has intermittent pain and stiffness/soreness. He overall is doing well. He has been able to get into his truck which was our main goal for return to work. He continues to use a straight cane for ambulation and should continue with that until he no longer has a limp. An exercise program and therapist contact information was sent to patient viaemail provided by patient ([email or web address]). Exercises included SLR, seated hip abduction with TB, standing hip abduction with TB, standing squats with UE support, side stepping with TB with UE support, forward and lateral step ups. Each at 3 x 10 reps daily. Will follow up with patient at the end of the week. Patient is in agreement with the plan of care. documented in this encounter Plan of Treatment Not on filedocumented as of this encounter Visit Diagnoses Not on filedocumented in this encounter Additional Health Concerns Assessment Noted Time PHQ-9 Depression Total Score: 18 02/14/2013 9:53 AM CD T documented as of this encounter Care Teams Manager Laundry Relationship Specialty Start Date End Date Cintia Cobb M.D. PCP - General 02/19/17 02/20/[id number] [phone] documented as of this encounter
--- OUTSIDE RECORDS SUMMARY | 2022-07-29 10:46 | XMS_ITS | Encounter Summary ---
:1960 Author Organization [facility] Address [address] [place] [address] Care Team Providers Name Role Phone Cintia Cobb M.D. Primary Care Provider [phone] Reason for Visit Physical Therapy (Routine) - Canceled Specialty Diagnoses / Procedures Referred By Contact Refer red To Contact Diagnoses Follow Up Examination Postoperative Visit Fracture Hip Intertrochanteric Closed Initial Left (HCC) Kacie Huerta APRN, [facility] Procedures PT Ongoing treatment C.N.P., D.N.P. [address] [place] [phone] Referral ID Status Reason Start Date Expiration Date Visits V isits Requested Authorized [id number] Canceled 10/13/2019 10/12/2020 99 99 Encounter Details Date Type Department Care Team Description 01/18/2020 Clinical Department of Kacie Huerta APRN, C.N.P., D.N.P. [address] [place] [phone] Follow Up Examination Postoperative Visi t; Support Rehabilitation Lesli Dias P.TPili [address] [place] [phone] Fracture Hip Intertrochanteric Closed In itial Left (HCC) Services in [address] [place] [address] Social History Tobacco Use Types Packs/Day Years Used Date Smoking Tobacco: Never Smokeless Tobacco: Never Alcohol Use Standard Drinks/Week Comments No 0 (1 standard drink = 0.6 oz pure alcoho l) Sex Assigned at Date Recorded Not on file documented as of this encounter Progress Notes Lesli Dias P.T. - 01/18/2020 3:00 PM CDT Physical Therapy Outpatient Treatment Note SUBJECTIVE Patient's Name: Laz Cuauhtemoc Luna Referring Provider: Kacie Huerta APRN, C.* Visit Diagnosis: 1. Follow Up Examination Postoperative Visit 2. Fracture Hip Intertrochanteric Closed Initial Left (HCC) Reason for Referral: PT eval and treat Onset Date: 08/12/19 Payor: [facility] CARE / Plan: [facility] BLUE PLUS HMO / Product Type: Medicaid HMO / No data recorded Epic Visit Count: 14 Patient comments: Patient returned to ortho and they would like him to progress with strengthening. He had imaging performed and there were no new concerns. OBJECTIVE Pain: intermittent pain, patient unable to rate on pain scale. He does not need pain medication. Ambulates with a straight cane, antalgic and trendelenburg gait noted. TREATMENT Treatment today consisted of: Performed the Sci-Fit total body ergometer x 10 minutes at level 2 resistance. Performed leg press 20 reps at 50# and 20 reps at 90 # with the bilateral LE's equal weightbearing. Seated hip abduction machine 40# 3 x 20 reps. Forward and lateral step ups on a 6 inch step at 20 reps. Standing partial squats 20 reps. Home Exercise Program/Education: Patient will perform standing hip abduction with theraband, standing squats and forward and lateral step ups at 30 reps everyday. He will continue to use the cane. Pt reports good compliance with his HEP. Contact monitoring: PPE used during therapy: Therapist was wearing the following PPE throughout entire session: surgicalmask and gloves Patient was wearing a mask during therapy session: yes Additional Staff Present During Session: no Patient's significant other present and masked during session. Assessment Clinical Impression: Tolerated well. Patient has significant weakness in the involved LE. Complianceand decreased intensity of home exercise program likely the cause. He will benefit from skilled PT for strengthening in order to achieve optimal function and independence. Functional Goals and Timeframes: PT Goal #1: [...] Date: 03/02/20 Plan Plan for next session: Plan to see patient weekly for face to face visits over the next 6 weeks in conjunction with home exercise program. Time Spent with Patient Therapeutic Exercise (min): 35 min Time Calculation Total Timed Units (min): 35 min Total Treatment Time (min): 35 min Lesli Dias P.T. Department of Rehabilitation Services in [address] [address] Dept: [phone] documented in this encounter Plan of Treatment Not on filedocumented as of this encounter Visit Diagnoses Diagnosis Follow Up Examination Postoperative Visi t Fracture Hip Intertrochanteric Closed In itial Left (HCC) documented in this encounter Additional Health Concerns Assessment Noted Time PHQ-9 Depression Total Score: 18 02/14/2013 9:53 AM CD T documented as of this encounter Care Teams Executive Talent Acquisition Consultant Relationship Specialty Start Date End Date Cintia Cobb M.D. PCP - General 02/19/17 02/20/[address] [place] [phone] documented as of this encounter
--- OUTSIDE RECORDS SUMMARY | 2022-07-29 10:46 | XMS_ITS | Encounter Summary ---
:1960 Author Organization [facility] Address [address] [place] [address] Care Team Providers Name Role Phone Cintia Cobb M.D. Primary Care Provider [phone] Reason for Visit Physical Therapy (Routine) - Canceled Specialty Diagnoses / Procedures Referred By Contact Refer red To Contact Diagnoses Follow Up Examination Postoperative Visit Fracture Hip Intertrochanteric Closed Initial Left (HCC) Kacie Huerta APRN, [facility] Procedures PT Ongoing treatment C.N.P., D.N.P. [address] [place] [phone] Referral ID Status Reason Start Date Expiration Date Visits V isits Requested Authorized [id number] Canceled 10/13/2019 10/12/2020 99 99 Encounter Details Date Type Department Care Team Description 01/05/2020 Clinical Department of Kacie Huerta APRN, C.N.P., D.N.P. [address] [place] [phone] Follow Up Examination Postoperative Visi t; Support Rehabilitation Lesli Dias P.TPili [address] [place] [phone] Fracture Hip Intertrochanteric Closed In itial Left (HCC) Services in [address] [place] [address] Social History Tobacco Use Types Packs/Day Years Used Date Smoking Tobacco: Never Smokeless Tobacco: Never Alcohol Use Standard Drinks/Week Comments No 0 (1 standard drink = 0.6 oz pure alcoho l) Sex Assigned at Date Recorded Not on file documented as of this encounter Progress Notes Lesli Dias P.T. - 01/05/2020 3:15 PM CDT Physical Therapy Outpatient Treatment Note By co-signing this note, the provider certifies the therapy being provided to this patient is reasonable and necessary for the diagnosis or treatment of this patient. SUBJECTIVE Patient's Name: Laz Luna Referring Provider: Kacie Huerta APRN, C.* Visit Diagnosis: 1. Follow Up Examination Postoperative Visit 2. Fracture Hip Intertrochanteric Closed Initial Left (HCC) Reason for Referral: PT eval and treat Onset Date: 08/12/19 Payor: [facility] CARE / Plan: [facility] [employer] HMO / Product Type: Medicaid HMO / No data recorded Epic Visit Count: 13 Patient comments: Patient reports he has been having an increase in pain. The pain begins in the posterolateral aspect of the hip and radiates down the anterior thigh to the knee. Patient denies fall or injury associated with the pain. He reports mild back pain. Patient notes a history of herniated discs at L4-5. He denies numbness or tingling. Patient reports his pain got worse roughly around 12/02/19. He noted a decline with not being able to use the [facility] and therapy due to Covid-19 closure. OBJECTIVE Pain: Patient is reporting moderate pain in the right hip and thigh. He reports it can be constant and can be intermittent depending on the day. PROM left hip flexion 90 degrees, abduction 20 degrees painful, IR normal but painful. Decline in strength noted to 3/5 for the left hip. Gait has declined with decreased stride length bilaterally. He requires the use of a straight cane to prevent antalgic gait. He is at an increased fall risk right now due to weakness and pain. He denies any falls. Patient instructed to use assistive device at all times for reduced fall risk. Trunk ROM flexion WNL and increases pain described. Extension 20 degrees and creates mild back pain at the L4-5 area. Heel and Toe negative. SLR positive. TREATMENT Treatment today consisted of: Attempted SLR for flexion and abduction and patient was unable to complete more than 3 reps with pain on both. Tried standing hip abduction, flexion and extension but this was also painful. He was ableto negotiate the stairs with mild compensation. He is able to get into his truck for work with increased time. Home Exercise Program/Education: Hold on home exercises until he returns to the doctor for further evaluation of his hip and screen of his back. Ambulate with use of cane. Pt reports fair compliance with his HEP. Patient reported it was harder to do his exercises at home and felt they were less beneficial than the weight equipment and had noted a hard time working them in with his work schedule. He has been doing them significantly less than recommended. Assessment Clinical Impression: Recommend further evaluation of the hip and screening of the knee due to increasing pain and progressive weakness compared to 5-6 weeks ago. Would like further evaluation before progressing with a strengthening program. Functional Goals and Timeframes: PT Goal [...] Date: 12/08/19 Plan Plan for next session: Patient will contact provider and therapist will follow up with patient next week via telephone. Time Spent with Patient PT Re-Evaluation (min): 30 min Time Calculation Total Treatment Time (min): 30 min Lesli Dias P.T. Department of Rehabilitation Services in [address] [address] Dept: [phone] documented in this encounter Plan of Treatment Not on filedocumented as of this encounter Visit Diagnoses Diagnosis Follow Up Examination Postoperative Visi t Fracture Hip Intertrochanteric Closed In itial Left (HCC) documented in this encounter Additional Health Concerns Assessment Noted Time PHQ-9 Depression Total Score: 18 02/14/2013 9:53 AM CD T documented as of this encounter Care Teams Admissions Counselor Relationship Specialty Start Date End Date Cintia Cobb M.D. PCP - General 02/19/17 02/20/[id number] [phone] documented as of this encounter
--- OUTSIDE RECORDS SUMMARY | 2022-07-29 10:46 | XMS_ITS | Encounter Summary ---
:1960 Author Organization [facility] Address [address] [place] [address] Care Team Providers Name Role Phone Cintia Cobb M.D. Primary Care Provider [phone] Reason for Visit Physical Therapy (Routine) - Canceled Specialty Diagnoses / Procedures Referred By Contact Refer red To Contact Diagnoses Follow Up Examination Postoperative Visit Fracture Hip Intertrochanteric Closed Initial Left (HCC) Kacie Huerta APRN, [facility] Procedures PT Ongoing treatment C.N.P., D.N.P. [address] [place] [phone] Referral ID Status Reason Start Date Expiration Date Visits V isits Requested Authorized [id number] Canceled 10/13/2019 10/12/2020 99 99 Encounter Details Date Type Department Care Team Description 11/25/2019 Clinical Department of Kacie Huerta APRN, C.N.P., D.N.P. [address] [place] [phone] Follow Up Examination Postoperative Visi t; Support Rehabilitation Lesli Dias P.TPili [address] [place] [phone] Fracture Hip Intertrochanteric Closed In itial Left (HCC) Services in [address] [place] [address] Social History Tobacco Use Types Packs/Day Years Used Date Smoking Tobacco: Never Smokeless Tobacco: Never Alcohol Use Standard Drinks/Week Comments No 0 (1 standard drink = 0.6 oz pure alcoho l) Sex Assigned at Date Recorded Not on file documented as of this encounter Progress Notes Lesli Dias P.T. - 11/25/2019 4:00 PM CDT Physical Therapy Outpatient Treatment Note SUBJECTIVE Patient's Name: Laz Cuauhtemoc Davilat Referring Provider: Kacie Huerta APRN, C.* Visit Diagnosis: 1. Follow Up Examination Postoperative Visit 2. Fracture Hip Intertrochanteric Closed Initial Left (HCC) Reason for Referral: PT eval and treat Onset Date: 08/12/19 Payor: [facility] CARE / Plan: [facility] BLUE PLUS HMO / Product Type: Medicaid HMO / No data recorded Epic Visit Count: 12 Patient comments: Patient reports improvement overall. He continues to rely on a cane for ambulation. OBJECTIVE Pain: soreness over the lateral aspect of the hip and into the knee. TREATMENT Treatment today consisted of: Perform the Sci-Fit Total body ergometer times 10 minutes at a level 4 resistance. ??Performed forward and lateral step-ups on a 6 in step at 2 x 10 repetitions. ??Performed squatting at 20 repetitions. ??Performed standing hip abduction with an blue Thera-Band around the ankles??30 repetitions. ??Legpress 20 pounds x 30 reps in a protected ROM. Home Exercise Program/Education: Patient will continue with home exercise program. Continue to recommend use of a straight cane for mobility. Pt reports good compliance with his HEP. Assessment Clinical Impression: Tolerated well. Patient will continue to benefit from skilled therapy to restore functional strength and normalize his gait pattern for return to work. Functional Goals and Timeframes: PT Goal #1: [...] progression of strengthening. Time Spent with Patient Therapeutic Exercise (min): 25 min Time Calculation Total Timed Units (min): 25 min Total Treatment Time (min): 25 min Lesli Dias P.T. Department of Rehabilitation Services in [address] [address] Dept: [phone] documented in this encounter Plan of Treatment Not on filedocumented as of this encounter Visit Diagnoses Diagnosis Follow Up Examination Postoperative Visi t Fracture Hip Intertrochanteric Closed In itial Left (HCC) documented in this encounter Additional Health Concerns Assessment Noted Time PHQ-9 Depression Total Score: 18 02/14/2013 9:53 AM CD T documented as of this encounter Care Teams Frozen Meat Cutter Relationship Specialty Start Date End Date Cintia Cobb M.D. PCP - General 02/19/17 02/20/[address] [place] [address], [place] [phone] documented as of this encounter
--- OUTSIDE RECORDS SUMMARY | 2022-07-29 10:46 | XMS_ITS | Encounter Summary ---
:1960 Author Organization [facility] Address [address] [place] [address] Care Team Providers Name Role Phone Cintia Cobb M.D. Primary Care Provider [phone] Encounter Details Date Type Department Care Team Description 01/11/2020 Office Visit Department of Kacie Huerta, Follow Up E xamination Orthopedic Surgery in [place] C.N.P., Posto perative Visit [place], [place] D.N.P. (Primary Dx) [address] [facility] [address] [place] [phone] Social History Tobacco Use Types Packs/Day Years Used Date Smoking Tobacco: Never Smokeless Tobacco: Never Alcohol Use Standard Drinks/Week Comments No 0 (1 standard drink = 0.6 oz pure alcoho l) Sex Assigned at Date Recorded Not on file documented as of this encounter Progress Notes Kacie Huerta, [place] C.N.P., D.N.P. - 01/11/2020 2:30 PM CDT It is a 59-year-old who is status post open reduction intramedullary fixation of the left intratrochanteric femur fracture that was performed in August of 2019. He had been doing very well when he was doing physical therapy on a regular basis but now has developed some increased aching of his left leg with weakness. He was trying to do some home exercises but admits they are not nearly as aggressive as he did with physical therapy. He has no new injury. Side note he was just recently started on Fosamax about a month ago. Physical exam-left hip surgical incisions well healed no signs of infection. He does have some slight discomfort with abduction and adduction of his hip. He has significant weakness on his quadriceps on the left side. Diagnostic studies x-ray of his left hip shows Postoperative changes attributed fixation left proximal femur without evidence of hardware complication, not significantly changed from comparison November 07, 2019. Mildly displaced left proximal femur fracture alignment unchanged. Bone demineralization. Unchanged bilateral sacroiliac, hip and symphysis pubis degeneration. Lower lumbar spondylosis. Impression and plan-Ed is a 59-year-old who had a hip fracture of his left hip was doing well and now is having some increased weakness and pain. I think this is from atrophy and he will progress well with more aggressive physical therapy. He was recently placed on Fosamax I did contact his primary care provider given this type of fracture will have them consider holding his Fosamax for 9-12 months post fracture. He agrees with this plan. Will have him continue with physical therapy and if he fails to progress we will see him back in follow-up. If he does well will see him as needed. 26 minutes was spent with patient of which 17 minutes was counseling and treatment options regardinghis left hip pain and leg weakness documented in this encounter Plan of Treatment Not on filedocumented as of this encounter Results DX Hip Left 2-3 Views (01/11/2020 2:51 PM CDT) Anatomical Region Laterality Modality Lower Extremity, Hip, Musculoskeletal RST LOS, Left Digital Radiography Musculoskeletal ARZ LOS, Muskuloskeletal FLA LOS Specimen (Source) Anatomical Collection Method Collection Time Re ceived Time Location / / Volume Laterality 01/11/2020 3:19 PM CDT Impressions 01/11/2020 3:20 PM CDT Postoperative changes attributed fixation left proximal femur without evidence of hardware complicatio n, not significantly changed from comparison November 07, 2019. Mildly displac ed left proximal femur fracture alignment unchanged. Bone demineralizati on. Unchanged bilateral sacroiliac, hip and symphysis pubis degeneration. Lower lumbar spondylosis. Narrative 01/11/2020 3:20 PM CDT EXAM: DX HIP LEFT 2-3 VIEWS Procedure Note Jerad Henriquez M.D. - 01/11/2020Formattin g of this note might be different from the original. EXAM: DX HIP LEFT 2-3 VIEWS IMPRESSION: Postoperative changes attributed fixatio n left proximal femur without evidence of hardware complicatio n, not significantly changed from comparison November 07, 2019. Mildly displac ed left proximal femur fracture alignment unchanged. Bone demineralizati on. Unchanged bilateral sacroiliac, hip and symphysis pubis degeneration. Lower lumbar spondylosis. John Norman M.D. [facility] EMMANUEL SANCHEZ documented in this encounter Visit Diagnoses Diagnosis Follow Up Examination Postoperative Visi t - Primary Follow Up Examination Postoperative Visi t documented in this encounter Additional Health Concerns Assessment Noted Time PHQ-9 Depression Total Score: 18 02/14/2013 9:53 AM CD T documented as of this encounter Care Teams Wound Care Coordinator Relationship Specialty Start Date End Date Cintia Cobb M.D. PCP - General 02/19/17 02/20/[address] [place] [phone] documented as of this encounter
--- OUTSIDE RECORDS SUMMARY | 2022-07-29 10:46 | XMS_ITS | Encounter Summary ---
:1960 Author Organization [facility] Address [address] [place] [address] Care Team Providers Name Role Phone Cintia Cobb M.D. Primary Care Provider [phone] Reason for Referral Outpatient (Routine) - Closed Specialty Diagnoses / Procedures Referred By Contact Refer red To Contact Diagnoses Fracture Hip Closed Initial Left (HCC) Cintia Cobb [place] Procedures BMD Bone Density Spine Hips S, M.D. [address] [address] Referral ID Status Reason Start Date Expiration Date Visits Requ ested Visits Authorized [id number] Closed 11/08/2019 11/07/2020 1 1 ING DOUBLER Reason for Visit Outpatient (Routine) - Closed Specialty Diagnoses / Procedures Referred By Contact Refer red To Contact Diagnoses Fracture Hip Closed Initial Left (HCC) Cintia Cobb [place] Procedures BMD Bone Density Spine Hips S, M.D. [address] [address] Referral ID Status Reason Start Date Expiration Date Visits Requ ested Visits Authorized [id number] Closed 11/08/2019 11/07/2020 1 1 Encounter Details Date Type Department Care Team Description 11/09/2019 Hospital Encounter Department of Song Fracture Hip Closed Radiology in [place]lyn Copeland, Cintia Initi al Left ([facility]) [place], [place] S, M.D. [address] [place] [phone] Social History Tobacco Use Types Packs/Day Years [...] Procedure Name Priority Date/Time Associated Comments Diagnosis BMD BONE DENSITY RAD - Routine 11/09/2019 3:05 Fracture Hip Results for this SPINE HIPS (most inpatients PM CARDING DOUBLER Closed Initial procedure are in and all Left (HCC) the results outpatients) section. documented in this encounter Results BMD Bone Density Spine Hips (11/09/2019 3:05 PM CARDING DOUBLER) Anatomical Region Laterality Modality Hip, Lumbar Spine, Nuclear Medicine RST LOS, N/A Radiographic Imaging Musculoskeletal ARZ LOS, Muskuloskeletal FLA LOS Specimen (Source) Anatomical Collection Method Collection Time Re ceived Time Location / / Volume Laterality 11/09/2019 3:29 PM CARDING DOUBLER Impressions 11/09/2019 3:31 PM CARDING DOUBLER Osteoporosis. Narrative 11/09/2019 3:31 PM CARDING DOUBLER EXAM: BMD BONE DENSITY SPINE HIPS COMPARISON: None. Cyber Workforce Developer And Manager/Model: [employer] FINDINGS: ?? LUMBAR SPINE L1-L4 included unless otherwise indicate d. Lumbar BMD: 1.012 gm/cm2 T-score: -1.8 BMD % change: N/A% Significance: N/A. RADIUS Radius 33% BMD: 0.697 Radius 33% T score: -1.2 BMD % change: N/A% Significance: N/A. HIP(S) Lowest femoral BMD: 0.628 gm/cm 2 Lowest T-score: -3.3 BMD % change: N/A% Significance: N/A. FRAX 10 year probability of major osteop orotic fracture 19.4 % FRAX 10 year probability of hip fracture ??7.2 % FRAX scores: Not clinically validated fo r patients with history of therapy with bisphosphonates in the past two years, c alcitonin in the last year, PTH in the last year, Denosumab in the last year. ? ?Calcium and vitamin D do NOT constitute treatment' in this context. ??All treat ment decisions require clinical judgement and consideration of individual patient factors which may not be captured in the FRAX model and the risk of fracture may be over- or under-estimated by FRAX. Treatment recommended for: Patients with hip or vertebral fracture (clinical or morphometric). Patients with osteoporosis at the spine and/or hip as defined by T-score <= -2.5. Postmenopausal women or men age 50 and o lder with low bone mass (T-score -1 to -2.5, osteopenia) at the femoral neck, t otal hip, or spine and 10 year hip fracture probability >3% or a 10 year al l major osteoporosis related fracture probability of >20% based on the [place] apted WHO absolute risk model. Exclude secondary causes of low bone den sity in the appropriate clinical setting. Follow-up exams should be performed at n o sooner than two-year intervals. Direct comparison can only be performed on exams performed at the same facility. World Health Organization T-score criter ia: 0 to -1.0 ?? Normal range < -1.0 to > -2.5 ?? Low bone density (os teopenia) -2.5 or less ?? Osteoporosis Procedure Note Jerad Henriquez M.D. - 11/09/2019Formattin g of this note might be different from the original. EXAM: BMD BONE DENSITY SPINE HIPS COMPARISON: None. Cyber Workforce Developer And Manager/Model: [employer] FINDINGS: LUMBAR SPINE L1-L4 included unless otherwise indicate d. Lumbar BMD: 1.012 gm/cm2 T-score: -1.8 BMD % change: N/A% Significance: N/A. RADIUS Radius 33% BMD: 0.697 Radius 33% T score: -1.2 BMD % change: N/A% Significance: N/A. HIP(S) Lowest femoral BMD: 0.628 gm/cm 2 Lowest T-score: -3.3 BMD % change: N/A% Significance: N/A. FRAX 10 year probability of major osteop orotic fracture 19.4 % FRAX 10 year probability of hip fracture 7.2 % FRAX scores: Not clinically validated fo r patients with history of therapy with bisphosphonates in the past two years, c alcitonin in the last year, PTH in the last year, Denosumab in the last year. C alcium and vitamin D do NOT constitute treatment' in this context. All treatme nt decisions require clinical judgement and consideration of individual patient factors which may not be captured in the FRAX model and the risk of fracture may be over- or under-estimated by FRAX. Treatment recommended for: Patients with hip or vertebral fracture (clinical or morphometric). Patients with osteoporosis at the spine and/or hip as defined by T-score <= -2.5. Postmenopausal women or men age 50 and o lder with low bone mass (T-score -1 to -2.5, osteopenia) at the femoral neck, t otal hip, or spine and 10 year hip fracture probability >3% or a 10 year al l major osteoporosis related fracture probability of >20% based on the [place] ad apted WHO absolute risk model. Exclude secondary causes of low bone den sity in the appropriate clinical setting. Follow-up exams should be performed at n o sooner than two-year intervals. Direct comparison can only be performed on exams performed at the same facility. World Health Organization T-score criter ia: 0 to -1.0 Normal range < -1.0 to > -2.5 Low bone density (osteo penia) -2.5 or less Osteoporosis IMPRESSION: Osteoporosis. Cintia Copeland M.D. [facility] DXA PROCEDURES documented in this encounter Visit Diagnoses Diagnosis Fracture Hip Closed Initial Left (HCC) documented in this encounter Additional Health Concerns Assessment Noted Time PHQ-9 Depression Total Score: 18 02/14/2013 9:53 AM CD T documented as of this encounter Care Teams Office Systems Technology Instructor Relationship Specialty Start Date End Date Cintia Cobb M.D. PCP - General 02/19/17 02/20/[address] [place] [phone] documented as of this encounter
--- OUTSIDE RECORDS SUMMARY | 2022-07-29 10:46 | XMS_ITS | Encounter Summary ---
:1960 Author Organization [facility] Address [address] [place] [address] Care Team Providers Name Role Phone Cintia Cobb M.D. Primary Care Provider [phone] Reason for Visit Reason Comments Quality Metrics - Colon CA screen Encounter Details Date Type Department Care Team Description 02/07/2020 Clinical Department of [place] [facility] CELLFOR s - Communication Family Medicine, Cintia Copeland C A screen [facility], in [address] [address] [place], [place] [phone] (Work) [phone] Social History Tobacco Use Types Packs/Day Years Used Date Smoking Tobacco: Never Smokeless Tobacco: Never Alcohol Use Standard Drinks/Week Comments No 0 (1 standard drink = 0.6 oz pure alcoho l) Sex Assigned at Date Recorded Not on file documented as of this encounter Miscellaneous Notes Telephone Encounter - Xochitl Hackett L.P.N. - 02/07/2020 10:58 AM CDT Quality Metrics - Colon CA screen Note on patient's chart to do not contact also shows up on Quality Metrics report. (02/07/20 BR) documented in this encounter Plan of Treatment Not on filedocumented as of this encounter Visit Diagnoses Not on filedocumented in this encounter Additional Health Concerns Assessment Noted Time PHQ-9 Depression Total Score: 18 02/14/2013 9:53 AM CD T documented as of this encounter Care Teams Sport Psychologist Relationship Specialty Start Date End Date Cintia Cobb M.D. PCP - General 02/19/17 02/20/[id number] [place] [phone] documented as of this encounter
--- OUTSIDE RECORDS SUMMARY | 2022-07-29 10:46 | XMS_ITS | Encounter Summary ---
:1960 Author Organization [facility] Address [address] [place] [address] Care Team Providers Name Role Phone Cintia Cobb M.D. Primary Care Provider [phone] Reason for Visit Physical Therapy (Routine) - Canceled Specialty Diagnoses / Procedures Referred By Contact Refer red To Contact Diagnoses Follow Up Examination Postoperative Visit Fracture Hip Intertrochanteric Closed Initial Left (HCC) Kacie Huerta APRN, [facility] Procedures PT Ongoing treatment C.N.P., D.N.P. [address] [place] [address] Referral ID Status Reason Start Date Expiration Date Visits V isits Requested Authorized [id number] Canceled 10/13/2019 10/12/2020 99 99 Encounter Details Date Type Department Care Team Description 12/19/2019 Virtual Visit Department of Kacie Huerta APRN, C.N.P., D.N.P. [address] [place] [phone] Follow Up Examination Postoperative Visi t; Rehabilitation Lesli Dias, P.TPili [address] [place] [phone] Fracture Hip Intertrochanteric Closed In itial Left (HCC) Services in [address] [place] [address] Social History Tobacco Use Types Packs/Day Years Used Date Smoking Tobacco: Never Smokeless Tobacco: Never Alcohol Use Standard Drinks/Week Comments No 0 (1 standard drink = 0.6 oz pure alcoho l) Sex Assigned at Date Recorded Not on file documented as of this encounter Progress Notes Lesli Dias P.T. - 12/19/2019 1:00 PM CDT Physical Therapy Outpatient Phone Encounter SUBJECTIVE Patient's Name: Laz Cuauhtemoc Luna Referring Provider: Kacie Huerta APRN, C.* Visit Diagnosis: 1. Follow Up Examination Postoperative Visit 2. Fracture Hip Intertrochanteric Closed Initial Left (HCC) Reason for Referral: PT eval and treat Onset Date: 08/12/19 Payor: [facility] CARE / Plan: [facility] [employer] [facility] HMO / Product Type: Medicaid HMO / No data recorded Epic Visit Count: Visit count could not be calculated. Make sure you are using a visit which is associated with an episode. This visit was an e-visit conducted via phone. The patient was in agreement to proceed with this visit in lieu of a face to face visit. Patient comments: Patient reports continued soreness and stiffness. He feels he is going backwards without having access to the [facility] equipment. He continues to work on his home exercise program and that is getting easy for him. 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 Mild difficulty getting in/out of his truck with the cane but he is able to do it independently. OBJECTIVE Pain: stiffness and soreness noted Ambulating with a cane. Limited hip IR and ER ROM for donning/doffing a sock. All other hip motion is functional. TREATMENT Treatment today consisted of: Home program Home Exercise Program/Education: Patient will continue with current home program increasing the reps to 4 x 10 reps. He will add bridging and sidelying hip abductor leg lifts into his home program. Encouraged him to continue working on step ups both forward and laterally increasing step height. He will also work on getting in/out of his truck more for functional strengthening. Pt reports good compliance with his HEP. Assessment Clinical Impression: Patient will continue to benefit from phone follow ups. Functional Goals and Timeframes: PT Goal #1: [...] Date: 12/08/19 Plan Plan for next session: Progress home program. Ongoing plan: ongoing phone follow-ups, next follow up recommended in 1 weeks Time spent with the patient: 21 or greater minutes Time Spent with Patient 33 min phone conversation Lesli Dias P.T. Department of Rehabilitation Services in [address] [phone] Dept: [phone] documented in this encounter Plan of Treatment Not on filedocumented as of this encounter Visit Diagnoses Diagnosis Follow Up Examination Postoperative Visi t Fracture Hip Intertrochanteric Closed In itial Left (HCC) documented in this encounter Additional Health Concerns Assessment Noted Time PHQ-9 Depression Total Score: 18 02/14/2013 9:53 AM CD T documented as of this encounter Care Teams Client Services Director Relationship Specialty Start Date End Date Cintia Cobb M.D. PCP - General 02/19/17 02/20/[address] [place] [phone] documented as of this encounter
--- OUTSIDE RECORDS SUMMARY | 2022-07-29 10:46 | XMS_ITS | Encounter Summary ---
:1960 Author Organization [facility] Address [address] [place] [address] Care Team Providers Name Role Phone Cintia Cobb M.D. Primary Care Provider [phone] Reason for Visit Reason Comments Xray request Encounter Details Date Type Department Care Team Description 04/06/2020 Clinical Communication Department of [facility] Yady donahue, Xray request Medicine, Jose Daniel Piper M.D. [facility], [address] [address] [place], [place] [phone] (Work) [phone] Social History Tobacco Use Types Packs/Day Years Used Date Smoking Tobacco: Never Smokeless Tobacco: Never Alcohol Use Standard Drinks/Week Comments No 0 (1 standard drink = 0.6 oz pure alcoho l) Sex Assigned at Date Recorded Not on file documented as of this encounter Miscellaneous Notes Telephone Encounter - Emelia Mujica L.P.N. - 04/06/2020 10:15 AM CDT Please review and advise on pended orders per your last note 01/11/2020 open reduction intramedullary fixation of the left intratrochanteric femur fracture that was performed in August of 2019. Will have him continue with physical therapy and if he fails to progress we will see him back in follow-up. If he does well will see him as needed. Last done Hip 01/11/20 Telephone Encounter - QuentinMalka - 04/06/2020 8:38 AM CDT Reason for Communication: Pt states that his doctor was going to place an order for a hip and knee xray. Pt was hoping to come in for the xray today, 04/06. Current Can Nursing/Provider leave a detailed message: yes Did the patient refuse triage through Nurse line? (for symptom based concerns): na Action Needed: Please place order if appropriate. Name of Medication (if relevant): documented in this encounter Plan of Treatment Not on filedocumented as of this encounter Results DX Hip And Pelvis [...] at the right hip. Stable lumbosacral spondylosis. Kelvin Grant APRNNEricka, D.N.P. IMG DIAGNOSTIC IMAG ING PROCEDURES DX Knee Left 3 Views (04/06/2020 5:07 [...] No significant joint effusion. Arteriovascular calcifications . Kelvin Grant APRNN.Tigist., D.N.P. IMG DIAGNOSTIC IMAG ING PROCEDURES documented in this encounter Visit Diagnoses Diagnosis Fracture Hip Closed Initial Left (HCC) - Primary Pain Knee Left Fracture Hip Closed Initial Left (HCC) Pain Knee Left documented in this encounter Additional Health Concerns Assessment Noted Time PHQ-9 Depression Total Score: 18 02/14/2013 9:53 AM CD T documented as of this encounter Care Teams Photographic Intelligence Officer Relationship Specialty Start Date End Date Cintia Cobb M.D. PCP - General 02/19/17 02/20/[id number] [place] [phone] documented as of this encounter
--- OUTSIDE RECORDS SUMMARY | 2022-07-29 10:47 | XMS_ITS | Encounter Summary ---
:1960 Author Organization [facility] Address [address] [place] [address] Care Team Providers Name Role Phone Cintia Cobb M.D. Primary Care Provider Reason for Visit Physical Therapy (Routine) - Closed Specialty Diagnoses / Procedures Referred By Contact Refer red To Contact Diagnoses Follow Up Examination Postoperative Visit Fracture Hip Intertrochanteric Closed Initial Left (HCC) Kacie Huerta APRN, [facility] Procedures PT Evaluate and treat C.N.P., D.N.P. [address] [place] [address] Referral ID Status Reason Start Date Expiration Date Visits Requ ested Visits Authorized [id number] Closed 10/04/2019 10/03/2020 1 1 Encounter Details Date Type Department Care Team Description 10/13/2019 Comprehensive Visit Department of Kacie Huerta APRN, C.N.P., D.N.P. [address] [place] [phone] Follow Up Examination Postoperative Visi t; Rehabilitation Ivonne Washington P.T., D.P.T. Fracture Hip Intertrochanteric Closed In itial Left (HCC) Services in [address] [phone] Social History Tobacco Use Types Packs/Day Years Used Date Smoking Tobacco: Never Smokeless Tobacco: Never Alcohol Use Standard Drinks/Week Comments No 0 (1 standard drink = 0.6 oz pure alcoho l) Sex Assigned at Date Recorded Not on file documented as of this encounter Consult Notes Ivonne Washington P.T., Nubia. - 10/13/2019 4:00 PM CST Physical Therapy Outpatient Evaluation/Treatment By co-signing this [...] eval and treat Onset Date: 08/12/19 Payor: [place] [employer] [facility] / Plan: [facility] [employer] HMO / Product Type: Medicaid HMO / Alminder Visit Count: 1 PERTINENT MEDICAL / SURGICAL HISTORY: Patient Active [...] Lipodystrophy ??? Gastric Bypass Status Post ??? Wound Toe Without Damage To Nail Open Subsequent ??? Hyperlipidemia On Treatment ??? Hemorrhage Gastrointestinal ??? History Of Falling ??? Pain Joint ??? Fracture Hip Intertrochanteric Closed Initial Left (HCC) ??? Fracture Hip Closed Initial Left (HCC) ??? Anemia Microcytic ??? Diarrhea ??? Impaired Glucose Tolerance ??? Osteoporosis ??? Follow Up Examination Postoperative Visit Past Surgical History: Procedure Laterality Date ??? BYPASS OF STOMACH N/A 11/19/2014 Gastric bypass ??? CARDIAC PACEMAKER PLACEMENT ??? CHONDRECTOMY OF SPINE N/A 02/19/1989 Discectomy ??? CYSTOSCOPY kidney stone ??? ESOPHAGOGASTRODUODENOSCOPY N/A 04/13/2018 Procedure: ESOPHAGOGASTRODUODENOSCOPY; Surgeon: Rene Carlson M.D.; Location: [facility] GI [facility] ??? LAPAROSCOPIC ASSISTED - GASTRIC BYPASS N/A 11/21/2014 Laparoscopic assisted - Gastric bypass ??? OPEN REDUCTION INTERNAL FIXATION FEMUR Left 08/13/2019 Procedure: OPEN REDUCTION INTERNAL FIXATION LEFT FEMUR; Surgeon: John Norman M.D.; Location:[facility] OR ??? OTHER CONVERTED SHX (SEE COMMENT) N/A 01/19/2017 >Implantation of dual-chamber permanent pacemaker. ??? OTHER SURGICAL HISTORY cystoscopy ??? UPPER GASTROINTESTINAL ENDOSCOPY N/A 11/21/2014 Upper gastrointestinal endoscopy Ed Cuauhtemoc Luna is a 59 y.o. male who presents to outpatient physical therapy for evaluation. His symptoms consist of: 1. S/p Left Hip ORIF Overall he reports his status is improving . History of Present Illness: Patient is s/p ORIF of left intratrochanteric femur fracture with Dr. Norman on 08/13/19. Session was limited by patient arriving 20 minutes late. Patient states that he has been ambulating with axillary crutches. He states that he is eager to get back into his truck. He states that he fractured his femur on 08/12/20 when he fell on ice getting out of his truck. His waspresent for the appointment. 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 Family/Caregiver Present: Yes() Patient goals:to get in and out of truck with no left hip pain Fall Risk (65 and older) Fall in the last 12 months: Yes Did you have an injury with the fall?: Yes OBJECTIVE REVIEW OF SYSTEMS Negative except left LE Musculoskeletal ROS: positive for - gait disturbance, joint pain, joint stiffness, muscle pain and muscular weakness PHYSICAL EXAM Pain: Patient reports minimal pain Ambulation/Balance: Device: Axillary crutches Distance (m): (100 feet) Assessment of Gait: Partial weaight bearing, decreased step length bilaterally Level of Assistance: Modified Independent # Stairs: 4(x3) Rails: 1 Comments: (Patient required verbal cuing for sequencing but chose not to follow advice of PT and continued to perform stairs incorrectly despite repeated education on safe technique) Quad strength: fair Patient unable to complete independent SLR on left without extensor lag Patient able to complete SLR on right independently Knee AROM: Left: 0-105 Right: 0-130 TREATMENT Treatment today consisted of: Access Code: [email or web address] Exercises ??? Supine Quad Set - 10 reps - 3 sets - 1x daily - 7x weekly ??? Supine Isometric Hamstring Set - 10 reps - 3 sets - 1x daily - 7x weekly ??? Supine Gluteal Sets - 10 reps - 3 sets - 1x daily - 7x weekly ??? Supine Heel Slides - 10 reps - 3 sets - 1x daily - 7x weekly Home Exercise Program/Education: Patient was educated on HEP. Patient instructed to continue with axillary crutches at this time. Assessment Clinical Impression: Mr. Luna presents to physical therapy with signs and symptoms consistent with s/p left hip ORIF. Session was limited my patient's unwillingness to follow PT advice with sequencing for stairs. Impairments: strength, endurance, transfers, ROM Functional Deficits: sit to stand, getting in/out of truck, ambulating Rehab Potential: Mr. Luna has Fair potential to achieve established physical therapy goals within the time frame outlined below, provided he actively participates in his physical therapy treatment planand home program. Comorbidities: DM II, hypertension, OP, anemia Personal Factors: Living situation, Needs assistive device Clinical Presentation: Evolving Examination elements: 3 Clinical Decision Making: Moderate: 1-2 complicating factors, 3 eval elements, evolving clinical presentation Functional Goals and Timeframes: PT Goal #1: [...] HEP. PT Goal #3 Date: 12/08/19 Plan Mr. Luna was educated regarding evaluative [...] Treatment Plan: Start of Plan of Care: 10/13/2019 Number of Visits: 8 visits PT Duration: 8 weeks PT Frequency: 1-2x/week Treatment interventions may include: Therapeutic exercise, Therapeutic functional activity, Gait training, Neuromuscular re-education, Manual therapy, Therapeutic modalities as needed Plan for next session: Trial cane, progress LE strengthening Time Spent with Patient PT Evaluation (min): 23 min Therapeutic Exercise (min): 13 min Time Calculation Total Timed Units (min): 13 min Total Treatment Time (min): 36 min Ivonne Washington P.T., D.P.T. Department of Rehabilitation Services in [address] [phone] Dept: [phone] ESTATE SUBAGENT documented in this encounter Plan of Treatment Not on filedocumented as of this encounter Visit Diagnoses Diagnosis Follow Up Examination Postoperative Visi t Fracture Hip Intertrochanteric Closed In itial Left (HCC) documented in this encounter Additional Health Concerns Assessment Noted Time PHQ-9 Depression Total Score: 18 02/14/2013 9:53 AM CD T documented as of this encounter Care Teams Insecticide Expert Relationship Specialty Start Date End Date Cintia Cobb M.D. PCP - General 02/19/17 02/20/[address] [place] [phone] documented as of this encounter
--- OUTSIDE RECORDS SUMMARY | 2022-07-29 10:47 | XMS_ITS | Encounter Summary ---
:1960 Author Organization [facility] Address [address] [place] [address] Care Team Providers Name Role Phone Cintia Cobb M.D. Primary Care Provider [phone] Reason for Visit Physical Therapy (Routine) - Canceled Specialty Diagnoses / Procedures Referred By Contact Refer red To Contact Diagnoses Follow Up Examination Postoperative Visit Fracture Hip Intertrochanteric Closed Initial Left (HCC) Kacie Huerta APRN, [facility] Procedures PT Ongoing treatment C.N.P., D.N.P. [address] [place] [phone] Referral ID Status Reason Start Date Expiration Date Visits V isits Requested Authorized [id number] Canceled 10/13/2019 10/12/2020 99 99 Encounter Details Date Type Department Care Team Description 10/19/2019 Clinical Department of Kacie Huerta APRN, C.N.P., D.N.P. [address] [place] [phone] Follow Up Examination Postoperative Visi t; Support Rehabilitation Lesli Dias P.TPili [address] [place] [phone] Fracture Hip Intertrochanteric Closed In itial Left (HCC) Services in [address] [place] [address] Social History Tobacco Use Types Packs/Day Years Used Date Smoking Tobacco: Never Smokeless Tobacco: Never Alcohol Use Standard Drinks/Week Comments No 0 (1 standard drink = 0.6 oz pure alcoho l) Sex Assigned at Date Recorded Not on file documented as of this encounter Progress Notes Lesli Dias P.T. - 10/19/2019 4:00 PM CST Physical Therapy Outpatient Treatment Note SUBJECTIVE Patient's Name: Laz Cuauhtemoc Luna Referring Provider: Kacie Huerta APRN, C.* Visit Diagnosis: 1. Follow Up Examination Postoperative Visit 2. Fracture Hip Intertrochanteric Closed Initial Left (HCC) Reason for Referral: PT eval and treat Onset Date: 08/12/19 Payor: [facility] / Plan: [facility] [employer] HMO / Product Type: Medicaid HMO / No data recorded Epic Visit Count: 2 Patient comments: patient reports he is doing well with the walking. He reports stairs are going well. He has been utilizing 2 crutches most of the time but has gone short distances without the crutches. OBJECTIVE Pain: Pain is controlled. Patient demonstrates independent ambulation with 2 crutches. Patient is weight- bearing as tolerated through the left lower extremity. Patient demonstrates an equal step and stride length bilaterally. He does favor the left lower extremity minimally. Ambulation with a single crutch patient was able to demonstrate independence. Patient ambulated withthe single crutch on the right side with a 3 point gait pattern. Patient did well with this. He demonstrated equal stride and step length however both were slightly diminished in comparison to 2 crutches. TREATMENT Treatment today consisted of: Today we progressed his home exercise program performing standing hip abduction, standing hip flexion standing hip extension in standing shallow squats at 2 x 10 repetitions of each. Patient perform upto 3 x 10 repetitions 1-2 times per day at home while holding on to a stable surface for upper extremity support. Patient will begin working on ambulation with a single cane/crutch at home. When patient is fatigued or having increased pain and when out of the home he will continue to utilize to crutches for safety. Home Exercise Program/Education: Patient perform exercises as performed in our session today. He will also work on ambulation with a single cane/crutch at home as tolerated. Continue with bilateral crutches when out of the home. Patient verbalizes understanding. Pt reports good compliance with his HEP. Assessment Clinical Impression: Tolerated treatment session well. Patient is progressing nicely with weight-bearing in tolerating without changes in pain levels. Patient does note muscular fatigue. Patient will continue to benefit from skilled physical therapy for progression of gait and strengthening in order to return to previous level of function. Patient's goal is to return to work which involves climbing into a truck. Functional Goals and Timeframes: PT Goal #1: [...] Plan Plan for next session: Continue with initiation of the Sci-Fit Total body ergometer and progression of strengthening. Will try to progress to ambulation without the use of crutches if patient is able to demonstrate independence instability. Will also work on balance. Time Spent with Patient Gait Training (min): 15 min Therapeutic Exercise (min): 15 min Time Calculation Total Timed Units (min): 30 min Total Treatment Time (min): 30 min Lesli Dias P.T. Department of Rehabilitation Services in [address] [address] Dept: [phone] E COMMERCE MERCHANT documented in this encounter Plan of Treatment Not on filedocumented as of this encounter Visit Diagnoses Diagnosis Follow Up Examination Postoperative Visi t Fracture Hip Intertrochanteric Closed In itial Left (HCC) documented in this encounter Additional Health Concerns Assessment Noted Time PHQ-9 Depression Total Score: 18 02/14/2013 9:53 AM CD T documented as of this encounter Care Teams Scarfer Relationship Specialty Start Date End Date Cintia Cobb M.D. PCP - General 02/19/17 02/20/[id number] [phone] documented as of this encounter
--- OUTSIDE RECORDS SUMMARY | 2022-07-29 10:47 | XMS_ITS | Encounter Summary ---
:1960 Author Organization [facility] Address [address] [place] [address] Care Team Providers Name Role Phone Cintia Cobb M.D. Primary Care Provider [phone] Reason for Visit Reason Onset Date Comments Code Needed 09/15/2019 Encounter Details Date Type Department Care Team Description 09/15/2019 Clinical Communication Department of [facility] rowan, Code Needed Medicine, Jose Daniel Piper M.D. [facility], [address] [address] [place], [place] [phone] (Work) [phone] Social History Tobacco Use Types Packs/Day Years Used Date Smoking Tobacco: Never Smokeless Tobacco: Never Alcohol Use Standard Drinks/Week Comments No 0 (1 standard drink = 0.6 oz pure alcoho l) Sex Assigned at Date Recorded Not on file documented as of this encounter Miscellaneous Notes Telephone Encounter - Fani Mac - 09/15/2019 3:11 PM CST [facility] in [place] is calling requesting an ICD10 code for billing. Please advise. Call back number: [phone] DRIVER documented in this encounter Plan of Treatment Not on filedocumented as of this encounter Visit Diagnoses Not on filedocumented in this encounter Additional Health Concerns Assessment Noted Time PHQ-9 Depression Total Score: 18 02/14/2013 9:53 AM CD T documented as of this encounter Care Teams Glue Spreader Relationship Specialty Start Date End Date Cintia Cobb M.D. PCP - General 02/19/17 02/20/[id number] [phone] documented as of this encounter
--- OUTSIDE RECORDS SUMMARY | 2022-07-29 10:47 | XMS_ITS | Encounter Summary ---
:1960 Author Organization [facility] Address [address] [place] [address] Care Team Providers Name Role Phone Cintia Cobb M.D. Primary Care Provider [phone] Reason for Visit Physical Therapy (Routine) - Canceled Specialty Diagnoses / Procedures Referred By Contact Refer red To Contact Diagnoses Follow Up Examination Postoperative Visit Fracture Hip Intertrochanteric Closed Initial Left (HCC) Kacie Huerta APRN, [facility] Procedures PT Ongoing treatment C.N.P., D.N.P. [address] [place] [phone] Referral ID Status Reason Start Date Expiration Date Visits V isits Requested Authorized [id number] Canceled 10/13/2019 10/12/2020 99 99 Encounter Details Date Type Department Care Team Description 10/25/2019 Clinical Department of Kacie Huerta APRN, C.N.P., D.N.P. [address] [place] [phone] Follow Up Examination Postoperative Visi t; Support Rehabilitation Lesli Dias P.TPili [address] [place] [phone] Fracture Hip Intertrochanteric Closed In itial Left (HCC) Services in [address] [place] [address] Social History Tobacco Use Types Packs/Day Years Used Date Smoking Tobacco: Never Smokeless Tobacco: Never Alcohol Use Standard Drinks/Week Comments No 0 (1 standard drink = 0.6 oz pure alcoho l) Sex Assigned at Date Recorded Not on file documented as of this encounter Progress Notes Lesli Dias P.T. - 10/25/2019 4:00 PM CST Physical Therapy Outpatient Treatment Note SUBJECTIVE Patient's Name: Laz Cuauhtemoc Luna Referring Provider: Kacie Huerta APRN, C.* Visit Diagnosis: 1. Follow Up Examination Postoperative Visit 2. Fracture Hip Intertrochanteric Closed Initial Left (HCC) Reason for Referral: PT eval and treat Onset Date: 08/12/19 Payor: [facility] / Plan: [facility] [employer] HMO / Product Type: Medicaid HMO / No data recorded Epic Visit Count: 4 Patient comments: no new complaints. [facility] work on his home exerciseprogram. OBJECTIVE Pain: controlled TREATMENT Treatment today consisted of: Reviewed precautions at length today. Patient verbalized understanding. Perform the [employer] Intellect-Fit Total body ergometer times 10 minutes at a level 1 resistance. Patient ago she a did 16 stairs going step over step utilizing bilateral hand rails. Performed lateral step-ups at 10 repetitions. Performed standing hip abduction, standing hip flexion, standing hip extension each at 20 repetitions. Home Exercise Program/Education: Patient will continue current home exercise program. Pt reports good compliance with his HEP. Assessment Clinical Impression: Tolerated treatment session well. Patient is progressing nicely with the strength and gait. Patient will continue to benefit from skilled physical therapy to regain functional strength and normalize gait pattern. Functional Goals and Timeframes: PT [...] self-manage his HEP. PT Goal #3 Date: 04/02/20 Plan Plan for next session: Continue with strengthening and gait training. Time Spent with Patient Therapeutic Exercise (min): 27 min Time Calculation Total Timed Units (min): 27 min Total Treatment Time (min): 27 min Lesli Dias P.T. Department of Rehabilitation Services in [address] [address] Dept: [phone] N CAPITAL ANALYST documented in this encounter Plan of Treatment Not on filedocumented as of this encounter Visit Diagnoses Diagnosis Follow Up Examination Postoperative Visi t Fracture Hip Intertrochanteric Closed In itial Left (HCC) documented in this encounter Additional Health Concerns Assessment Noted Time PHQ-9 Depression Total Score: 18 02/14/2013 9:53 AM CD T documented as of this encounter Care Teams Underwater Hunter Trapper Relationship Specialty Start Date End Date Cintia Cobb M.D. PCP - General 02/19/17 02/20/[address] [place] [phone] documented as of this encounter
--- OUTSIDE RECORDS SUMMARY | 2022-07-29 10:47 | XMS_ITS | Encounter Summary ---
:1960 Author Organization [facility] Address [address] [place] [address] Care Team Providers Name Role Phone Cintia Cobb M.D. Primary Care Provider [phone] Encounter Details Date Type Department Care Team Description 10/04/2019 Hospital Encounter Department of Kacie Huerta Follo w Up Examination Radiology in [facility], C.N.P., Postope rative Visit [place], [place] D.N.P. [address] [place] [phone] Social History Tobacco Use Types Packs/Day Years Used Date Smoking Tobacco: Never Smokeless Tobacco: Never Alcohol Use Standard Drinks/Week Comments No 0 (1 standard drink = 0.6 oz pure alcoho l) Sex Assigned at Date Recorded Not on file documented as of this encounter Medications at Time of Discharge Medication Sig Dispensed Refills Start Date End Date acetaminophen Take 2 tablets (1,000 0 08/16/2019 (TYLENOL) 500 mg mg total) by mouth 3 tablet (three) times a day as needed for pain. Do not exceed 4 g total per day from all sources next 2 weeks, and no more than 4 g per day total long-term calcium carbonate Chew 2 tablets 2 (two) 0 (TUMS) 500 mg (200 mg times a day. calcium) chewable tablet loperamide (IMODIUM Take 2 mg by mouth 4 0 A-D) 2 mg capsule (four) times a day as needed for diarrhea. PEDIATRIC MULTIVITAMIN Take 4 tablets by 0 2015 NO.76 (FLINTSTONES mouth daily. COMPLETE ORAL) sennosides-docusate Take 1 tablet by mouth 0 08/0708/15/2020 sodium (SENOKOT-S) 2 (two) times a day as 8.6-50 mg per tablet needed for constipation. allopurinoL (ZYLOPRIM) TAKE ONE TABLET BY 90 tablet 3 09/1909/21/2020 300 mg tablet MOUTH DAILY cyanocobalamin INJECT 1ML 3 mL 3 09/19/2019 11/08/2019 (VITAMIN B12) 1,000 SUBCUTANEOUSLY EVERY mcg/mL injection 30 DAYS cyanocobalamin, Inject 1,000 mcg under 3 kit 3 06/01/20 18 11/08/2019 vitamin B-12, 1,000 the skin every 30 mcg/mL kit (thirty) days. enoxaparin (LOVENOX) Inject 0.4 mL (40 mg 12 Syringe 0 08/1711/08/2019 40 mg/0.4 mL injection total) under the skin daily for 12 days. medical provider might stop sooner or later depending on patient's mobility ferrous sulfate 325 mg Take 1 tablet (65 mg 30 tablet 0 06/201911/08/2019 (65 mg iron) DR tablet of iron total) by mouth daily. foam bandage (Mepilex) Apply 1 each topically 10 each 11 0 09/12/2019 12/18/2020 4 X 4 bandage every 3 (three) days. furosemide (LASIX) 40 TAKE ONE TABLET BY 90 tablet 3 201909/21/2020 mg tablet MOUTH DAILY omeprazole (PriLOSEC) Take 1 capsule (20 mg 90 capsule 3 11/08/[address] capsule total) by mouth every morning before breakfast. tamsulosin (FLOMAX) TAKE ONE CAPSULE BY 90 capsule 3 020 09/21/2020 0.4 mg 24 hr capsule MOUTH ONCE DAILY documented as of this encounter Plan of Treatment Not on filedocumented as of this encounter Procedures Procedure Name Priority Date/Time Associated Diagnosis Comme nts DX HIP AND RAD - Routine 10/04/2019 3:58 Follow Up Results for this PELVIS LEFT 2-3 (most inpatients PM COMMUNITY ENGAGEMENT LEADER Examination procedur e are in VIEWS and all Postoperative Visit the resu lts outpatients) section. documented in this encounter Results DX Hip And Pelvis Left 2-3 Views (10/04/2019 3:58 PM COMMUNITY ENGAGEMENT LEADER) Anatomical Region Laterality Modality Lower Extremity, Pelvis, Hip, Musculoskeletal RST LOS, Left Digital Radiography Musculoskeletal ARZ LOS, Muskuloskeletal FLA LOS Specimen (Source) Anatomical Collection Method Collection Time Re ceived Time Location / / Volume Laterality 10/04/2019 4:42 PM COMMUNITY ENGAGEMENT LEADER Impressions 10/04/2019 4:43 PM COMMUNITY ENGAGEMENT LEADER Prior surgical fixation across a subacute fracture of the intertrochanteric left femur. The fractu re line remains visible with interval healing change. No evidence of hardware loosening. Negative for acute fracture. Degenerative changes at the lumbosacral junction, both SI joints, and right hip. Demineralization. Narrative 10/04/2019 4:43 PM COMMUNITY ENGAGEMENT LEADER EXAM: DX HIP AND PELVIS LEFT 2-3 VIEWS Procedure Note Tu Owens M.D. - 10/04/2019For matting of this note might be different from the original. EXAM: DX HIP AND PELVIS LEFT 2-3 VIEWS IMPRESSION: Prior surgical fixation across a subacut e fracture of the intertrochanteric left femur. The fractu re line remains visible with interval healing change. No evidence of hardware loosening. Negative for acute fracture. Degenerative changes at the lumbosacral junction, both SI joints, and right hip. Demineralization. Kalia Grant APRN.N.Tigist., D.N.P. IMG DIAGNOSTIC IMAG ING PROCEDURES documented in this encounter Visit Diagnoses Diagnosis Follow Up Examination Postoperative Visi t documented in this encounter Additional Health Concerns Assessment Noted Time PHQ-9 Depression Total Score: 18 02/14/2013 9:53 AM CD T documented as of this encounter Care Teams Computer Salesperson Retail Relationship Specialty Start Date End Date Cintia Cobb M.D. PCP - General 02/19/17 02/20/[address] [phone] documented as of this encounter
--- OUTSIDE RECORDS SUMMARY | 2022-07-29 10:47 | XMS_ITS | Encounter Summary ---
:1960 Author Organization [facility] Address [address] [place] [address] Care Team Providers Name Role Phone Cintia Cobb M.D. Primary Care Provider [phone] Reason for Visit Physical Therapy (Routine) - Canceled Specialty Diagnoses / Procedures Referred By Contact Refer red To Contact Diagnoses Follow Up Examination Postoperative Visit Fracture Hip Intertrochanteric Closed Initial Left (HCC) Kacie Huerta APRN, [facility] Procedures PT Ongoing treatment C.N.P., D.N.P. [address] [place] [address] Referral ID Status Reason Start Date Expiration Date Visits V isits Requested Authorized [id number] Canceled 10/13/2019 10/12/2020 99 99 Encounter Details Date Type Department Care Team Description 10/21/2019 Clinical Department of Kacie Huerta APRN, C.N.P., D.N.P. [address] [place] [phone] Follow Up Examination Postoperative Visi t; Support Rehabilitation Lesli Dias P.TPili [address] [place] [phone] Fracture Hip Intertrochanteric Closed In itial Left (HCC) Services in [address] [place] [phone] Social History Tobacco Use Types Packs/Day Years Used Date Smoking Tobacco: Never Smokeless Tobacco: Never Alcohol Use Standard Drinks/Week Comments No 0 (1 standard drink = 0.6 oz pure alcoho l) Sex Assigned at Date Recorded Not on file documented as of this encounter Progress Notes Lesli Dias P.T. - 10/21/2019 4:00 PM CST Physical Therapy Outpatient Treatment Note SUBJECTIVE Patient's Name: Laz Cuauhtemoc Luna Referring Provider: Kacie Huerta APRN, C.* Visit Diagnosis: 1. Follow Up Examination Postoperative Visit 2. Fracture Hip Intertrochanteric Closed Initial Left (HCC) Reason for Referral: PT eval and treat Onset Date: 08/12/19 Payor: [facility] CARE / Plan: [facility] BLUE PLUS HMO / Product Type: Medicaid HMO / No data recorded Epic Visit Count: 3 Patient comments: Patient reports he is stiff and sore after sleeping. OBJECTIVE Pain: soreness reported in the hip. TREATMENT Treatment today consisted of: Perform Sci-Fit Total body ergometer times 10 minutes at a level 1 resistance. Patient did see elevated with hip flexion not exceeding 90??. We initiated forward and lateral step-ups at 10 repetitions with upper extremity support. Performed standing hip abduction, standing hip extension, standing hip flexion at 20 repetitions each. Also performed standing chills squats at 20 repetitions. Home Exercise Program/Education: Patient will continue with his current home exercise program. Pt reports good compliance with his HEP. Assessment Clinical Impression: Tolerated treatment session well. Patient is progressing nicely with strength and gait. Patient continue to benefit from skilled physical therapy to return to previous level of function. [...] Date: 12/08/19 Plan Plan for next session: Strengthening gait training. Time Spent with Patient Therapeutic Exercise (min): 30 min Time Calculation Total Timed Units (min): 30 min Total Treatment Time (min): 30 min Lesli Dias P.T. Department of Rehabilitation Services in [address] [phone] Dept: [phone] [employer] documented in this encounter Plan of Treatment Not on filedocumented as of this encounter Visit Diagnoses Diagnosis Follow Up Examination Postoperative Visi t Fracture Hip Intertrochanteric Closed In itial Left (HCC) documented in this encounter Additional Health Concerns Assessment Noted Time PHQ-9 Depression Total Score: 18 02/14/2013 9:53 AM CD T documented as of this encounter Care Teams Certified Physician'S Assistant Relationship Specialty Start Date End Date Cintia Cobb M.D. PCP - General 02/19/17 02/20/[address] [place] [phone] documented as of this encounter
--- OUTSIDE RECORDS SUMMARY | 2022-07-29 10:47 | XMS_ITS | Encounter Summary ---
:1960 Author Organization [facility] Address [address] [place] [address] Care Team Providers Name Role Phone Cintia Cobb M.D. Primary Care Provider [phone] Reason for Visit Auth/Cert Specialty Diagnoses / Procedures Referred By Contact Refer red To Contact Diagnoses Pain Joint Fracture Hip Closed Initial Left (HCC) Hip Fracture Procedures n/a Referral ID Status Reason Start Date Expiration Date Visits Requ ested Visits Authorized [id number] 1 1 Encounter Details Date Type Department Care Team Description 08/12/2019 - Hospital Encounter [facility] Dumont, Ed Angélica Oakes [address] [place] [id number] Fracture Hip Closed Initial Left (HCC) ( Primary Dx); 08/16/2019 [facility] Rahel Ashby M.D. [address] [place] [phone] [facility], Third Floor [address] [place] [address] Social History Tobacco Use Types Packs/Day Years Used Date Smoking Tobacco: Never Smokeless Tobacco: Never Alcohol Use Standard Drinks/Week Comments No 0 (1 standard drink = 0.6 oz pure alcoho l) Sex Assigned at Date Recorded Not on file documented as of this encounter Last Filed Vital Signs Vital Sign Reading Time Taken Comments Blood Pressure 110/73 08/16/2019 3:21 AM CHESS INSTRUCTOR Pulse 77 08/15/2019 8:09 PM CHESS INSTRUCTOR Temperature 36.9 ??C (98.4 ??F) 08/16/2019 3:21 AM CHESS INSTRUCTOR Respiratory Rate 16 08/16/2019 3:21 AM CHESS INSTRUCTOR Oxygen Saturation 95% 08/16/2019 3:21 AM CHESS INSTRUCTOR Inhaled Oxygen Concentration - - Weight 80.2 kg (176 lb 12.9 oz) 08/16/2019 5:00 AM CHESS INSTRUCTOR Height 182.9 cm (6') 08/12/2019 12:43 PM CHESS INSTRUCTOR Body Mass Index 23.98 08/12/2019 12:43 PM CHESS INSTRUCTOR documented in this encounter Discharge Summaries Laz Dumont M.D. - 08/16/2019 12:00 PM CST DISCHARGE SUMMARY BRIEF OVERVIEW Discharge Provider: Laz Dumont M.D. Primary Care Providers: Cintia Cobb M.D. ([address] [phone] Primary Care Provider Primary Care Provider Other Providers: Dr. Symone Javed Admission Date: 08/12/2019 Discharge Date: 08/16/2019 PRINCIPAL DIAGNOSIS Fracture Hip Intertrochanteric Closed Initial Left (HCC) SECONDARY DIAGNOSES Principal Problem: Fracture Hip Intertrochanteric Closed Initial Left (HCC) Active Problems: Anemia Microcytic Benign Prostatic Hyperplasia Without Obstruction History Of Falling Diarrhea Impaired Glucose Tolerance Osteoporosis Resolved Problems: Diabetes Mellitus Type 2 (HCC) Surgery Information This Encounter Past Procedures (08/16/2018 to Today) Date Procedures Providers Location 08/13/2019 OPEN REDUCTION INTERNAL FIXATION LEFT FEMUR John [facility] M.D. [facility] OR DISCHARGE DISPOSITION Shelter Facility [3] DISCHARGE MEDICATIONS Discharge Medications TAKE these medications acetaminophen 500 mg tablet Commonly known as: TYLENOL Take 2 tablets (1,000 mg total) by mouth 3 (three) times a day as needed for pain. Do not exceed 4 gtotal per day from all sources next 2 weeks, and no more than 4 g per day total long-term allopurinol 300 mg tablet Commonly known as: ZYLOPRIM TAKE ONE TABLET BY MOUTH DAILY calcium carbonate 500 mg (200 mg calcium) chewable tablet Commonly known as: TUMS Chew 2 tablets 2 (two) times a day. cyanocobalamin (vitamin B-12) 1,000 mcg/mL kit Inject 1,000 mcg under the skin every 30 (thirty) days. enoxaparin 40 mg/0.4 mL injection Commonly known as: LOVENOX Start taking on: August 17, 2019 Inject 0.4 mL (40 mg total) under the skin daily for 12 days. medical provider might stop sooner or later depending on patient's mobility ferrous sulfate 325 mg (65 mg iron) DR tablet Take 1 tablet (65 mg of iron total) by mouth daily. FLINTSTONES COMPLETE ORAL Take 4 tablets by mouth daily. furosemide 40 mg tablet Commonly known as: LASIX TAKE ONE TABLET BY MOUTH DAILY loperamide 2 mg capsule Commonly known as: IMODIUM A-D Take 2 mg by mouth 4 (four) times a day as needed for diarrhea. omeprazole [address] capsule Commonly known as: PriLOSEC Take 1 capsule (20 mg total) by mouth every morning before breakfast. oxyCODONE 10 mg IR tablet Commonly known as: ROXICODONE Take 1 tablet (10 mg total) by mouth every 4 (four) hours as needed for severe pain or score 7-10 of10 Indication: Acute Pain. or 1/2 tab q.4 hours p.r.n. pain 4-6 sennosides-docusate sodium 8.6-50 mg per tablet Commonly known as: SENOKOT-S Take 1 tablet by mouth 2 (two) times a day as needed for constipation. tamsulosin 0.4 mg 24 hr capsule Commonly known as: FLOMAX Take 0.4 mg by mouth daily. MEDICATION ALLERGIES Allergies Allergen Reactions ??? Ciprofloxacin Other (see comments) Genital swelling ??? Haemophilus Influenzae GI intolerance Diarrhea ACTIVE ISSUES REQUIRING FOLLOW UP - WBAT with walker - Leave Aquacel dressing on for 1 week, then remove, leaving all other dressings/sutures in place until first follow up visit - Showers only, absolutely do not submerge incision under water. No ointments. - Pain medication as needed, supplement with Tylenol and ice OUTPATIENT FOLLOW UP Future Appointments Date Time Provider Department Center 08/30/2019 9:30 AM Mehreen Coleman APRN, C.N.P., D.N.P. [facility] TEST RESULTS PENDING AT DISCHARGE DETAILS OF HOSPITAL STAY REASON FOR ADMISSION Pain Joint Fracture Hip Closed Initial Left (HCC) HOSPITAL COURSE 59 y/o male who presented to the ED with left hip pain workup revealed nondisplaced left intertrochanteric trochanteric fracture. Patient also has anemia of chronic disease 08/13 s/p ORIF, trend hemoglobin. Per Dr. 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 Had surgery for repair on August 13 by doctor Ester. ?? August 14- slow to rehab August 15- slower to rehab Aug 16- walked slowly on the level and up just 1 step, needs skilled rehab ?? #1 Left intertrochanteric hip fracture #2 Left hip hemiarthroplasty August 13 #3 Possible osteoporosis Case went well, but doctor Ester noted poor bone quality (possible nutritional deficiencies after gastric bypass). Doing okay in rehab. Enoxaparin prophylaxis. Consider osteoporosis workup as outpatient ?? #4 Normocytic anemia, iron deficiency Hemoglobin holding after surgery, last 7.5 on August 14. Patient has been on multivitamins and B12 injections after bypass surgery. Required transfusion and upper endoscopy for anastomotic bleed April 2018. Indefinite acid suppression. Currently iron saturation low at 6%, begin iron supplement, although patient does not want take it does not think it will help I still recommend it. B12 good on monthly shots ?? #5 Borderline glucose Hemoglobin A1c 5.7% on admission. Patient is ???post diabetic?? with previous diabetes resolved with gastric bypass. Diet treatment, no monitoring needed ?? #6 Resolved obesity, status post gastric bypass Bypass surgery in 2015 lost about half his body weight. Attention to nutritional requirements, bone health. Patient trust his PCP as do I. I suggest consideration of Dietitian and/or GI consult and bone density determination as outpatient. ?? #7 Diarrhea, currently in remission Evaluation by Dr. Duncan Copeland, and consider outpatient GI consultation if continues. ?? #8 BPH On tamsulosin Patient slow initial rehab progress as above. Wanted to go home and needs to get back to driving [employer] a soon as possible to help with his finances. Skilled rehab is his best bet. Medical problems stable. Orthopedic follow-up 10-14 days as ordered, call sooner if problems. CONSULTS ORDERED DURING THIS ADMISSION ANESTHESIA FOLLOW-UP IP CONSULT TO HOSPITAL INTERNAL MEDICINE CONDITION AT DISCHARGE stable In a chair in no distress. Vital signs good today blood pressure 110/73 O2 sat 95% weight 80 kg BMI 24. Feet neurovascularly intact. He has old venous stasis dermatitis on lower legs. Number bodily changes from losing over half his body weight a few years ago. Lungs, heart, abdomen, neurologic unremarkable. Discharge instructions were provided to the patient and caregiver(s). 45 minutes discharge care by me today S INSTRUCTOR documented in this encounter Discharge Instructions Discharge Instr - Non Honobia Zhnioa-TcdDtdrfk-Zxucefaprl, Becky - 08/16/2019 12:01 PM CST Please have Patient seen by PCP on rounds in 3-5 days. S INSTRUCTOR documented in this encounter Medications at Time of Discharge Medication Sig Dispensed Refills Start Date End Date calcium carbonate (TUMS) Chew 2 tablets 2 0 500 mg (200 mg calcium) (two) times a day. chewable tablet loperamide (IMODIUM A-D) Take 2 mg by mouth 4 0 2 mg capsule (four) times a day as needed for diarrhea. PEDIATRIC MULTIVITAMIN Take 4 tablets by 0 2015 NO.76 (FLINTSTONES mouth daily. COMPLETE ORAL) acetaminophen (TYLENOL) Take 2 tablets 0 08/16/20 19 500 mg tablet (1,000 mg total) by mouth 3 (three) times a day as needed for pain. Do not exceed 4 g total per day from all sources next 2 weeks, and no more than 4 g per day total long-term allopurinol (ZYLOPRIM) TAKE ONE TABLET BY 90 tablet 0 06/2209/19/2019 300 mg tablet MOUTH DAILY furosemide (LASIX) 40 mg TAKE ONE TABLET BY 90 tablet 0 09/19/2019 tablet MOUTH DAILY omeprazole (PriLOSEC) 20 Take 1 capsule (20 90 capsule 3 11/08/[address] capsule mg total) by mouth every morning before breakfast. tamsulosin (FLOMAX) 0.4 Take 0.4 mg by mouth 11 09/20/2019 mg 24 hr capsule daily. oxyCODONE (ROXICODONE) Take 1 tablet (10 mg 15 tablet 0 06/201908/19/2019 10 mg IR total) by mouth tabletIndications: Acute every 4 (four) hours Pain as needed for severe pain or score 7-10 of 10 for up to 3 days Indication: Acute Pain. or 1/2 tab q.4 hours p.r.n. pain 4-6 sennosides-docusate Take 1 tablet by 0 08/16/2019 08/15/2020 sodium (SENOKOT-S) mouth 2 (two) times 8.6-50 mg per tablet a day as needed for constipation. cyanocobalamin, vitamin Inject 1,000 mcg 3 kit 3 201711/08/2019 B-12, 1,000 mcg/mL kit under the skin every 30 (thirty) days. enoxaparin (LOVENOX) 40 Inject 0.4 mL (40 mg 12 Syringe 0 11/08/2019 mg/0.4 mL injection total) under the skin daily for 12 days. medical provider might stop sooner or later depending on patient's mobility ferrous sulfate 325 mg Take 1 tablet (65 mg 30 tablet 0 06/201911/08/2019 (65 mg iron) DR tablet of iron total) by mouth daily. documented as of this encounter Progress Notes Marya Paredes P.T.A. - 08/16/2019 11:35 AM CST Physical Therapy Inpatient Treatment SUBJECTIVE Patient's Name: Laz Luna Referring/Attending Provider: Laz Dumont M.D. Medical Diagnosis: Pain Joint [M25.50] Fracture Hip Closed Initial Left (HCC) [S72.002A] Reason for Referral: L hip fx Onset Date: 08/12/19 Payor: [employer] [facility] [place] CARE / Plan: [facility] HMO / Product Type: Medicaid HMO / Family/Caregiver Present: No Patient Comments: Patient reports he is feeling better today. Activity Orders (From admission, onward) Start Ordered 08/13/19 0943 Activity: Up with Assistance Until discontinued Comments: When PT OKs Question: Activity Level: Answer: Up with Assistance 08/13/19 0942 08/12/19 1411 Fall precautions Continuous 08/12/19 1414 08/12/19 1407 Activity: Up with Assistance Until discontinued Comments: Encourage patient to be up for meals Ambulate as much as possible considering previous activity level and physical functioning Resume activity level following recovery from procedure and/or tests unless otherwise directed Question: Activity Level: Answer: Up with Assistance 08/12/19 1414 OBJECTIVE Pain Assessment Pain Score: (not rated but reports some pain with WB) Measures - Tools Bed Mobility - Supine to Sit Level of Assistance: Supervision/Set-up Comments: very slow but patient able to perform with use of gait belt as a leg lifts and bed rails, patient refuses assistance again today Transfer - Sit to Stand # of Assistants: 1 Device: Front wheeled walker Level of Assistance: Supervision/Set-up Comments: patient refuses assist to come to stand but is very slow in moving and takes 2 tries before being able to come to standing position Transfer - Stand to Sit # of Assistants: 1 Level of Assistance: Supervision/Set-up Device: Front wheeled walker Comments: patient again refuses to have assist, patient is safe but slow with transitional movements, patient able to scoot back in chair independently Gait Assessment # of Assistants: 1 Level of Assistance: (CGA) Device: Front wheeled walker Distance (m): 3 m Cuing: Verbal Assessment of Gait: very slow step to pattern, self limits WB on LLE due to pain Training/Intervention: use of gait belt, verbal cues for proper sequencing of gait Response: patient demonstrates good safety awareness and follows cues appropriately, patient likes to perform mobility without assistance and is very slow in doing so Stairs # of Assistants: 2 Level of Assistance: Moderate assistance # Stairs: 1 Device: Axillary crutches Comments: Other (Comment)(patient only able to perform 1 step and unable to perform further steps safely, patient needs to do 4 to get into home and unable to do that) Assessment Discharge Considerations: Discharge Recommendation: Ongoing skilled therapy recommended in a post-acute setting Equipment Recommended PT: Walker, Wheelchair, Crutches Clinical Impression: Mr. Luna was admitted 08/12/2019 with a diagnosis of: Pain Joint [M25.50] Fracture Hip Closed Initial Left (HCC) [S72.002A]. Currently, patient presents with limitations including difficulty with bed mobility, transfers, gait, and stair negotiation. Education was provided regarding evaluative findings, diagnosis, prognosis, potential risks and benefits of rehabilitation interventions. Therapy findings and recommendations were discussed with patient, RN and PT. Rehab Potential: Good Functional Goals and Timeframes: PT Goal #1: Patient will require SBA with bed mobility PT Goal #2: Patient will perform transfers with SBA PT Goal #3: Patient will be able to ambulate 20 m with FWW PT Goal #4: Patient will be able to negotiate going up/down 4 stairs. Progress: Discontinue PT(PT POC reviewed and unchanged) Discontinue PT (Inpatient): Recommend physical therapy evaluate and treat. Frequency and duration tameka determined by the evaluating therapist.(at care center) Plan Patient agrees with the plan of care and goals. Plan: Discontinue therapy PT Duration: plan is for patient to discharge to post acute setting today, patient has partially methis goals Inpatient PT Received On Date: 08/16/19 Requires Inpatient Follow-Up: No Other PT Comments: Patient states that he now knows he cannot go home and is willing to go to a postacute setting for further rehab Treatment/Interventions: Therapeutic functional activity, Gait training, Therapeutic exercise Time Spent with Patient Gait Training (min): 30 min Therapeutic Activity (min): 15 min Total Timed Units (min): 45 min Total Treatment Time (min): 45 min Functional G-code Worksheet Marya Paredes P.T.A. [facility], Third Floor [address] [facility] [phone] Dept: [phone] S INSTRUCTOR Associated attestation - Stephanie Diaz PLainey - 08/18/2019 7:58 AM CHESS INSTRUCTOR Physical Therapy Dismissal Snapshot Patient was seen 3 visit(s) for gait training, WBAT after hip fracture and repair. Inpatient goals: partially met Please see last progress note for status. Patient to dismiss to transitional care facility to address remaining impairments of range of motion, strength, and pain, and mobility deficits of transfers and gait. Ml Ha, L.SPiliW. - 08/16/2019 10:00 AM CST S: SWS consulted with Nurse Cristobal, and Dr. Dumont. SWS confirmed with [facility] that thereare no beds today. SWS met with Ed and discussed that it is recommended for him to discharge to a Skilled Facility for short term rehab maybe 5 -10 days. 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 Ed stated that he is the expert on his body and healing. Ed stated that he heals faster than most. SWS agreed and stated that he is the expert on himself and knows he needs more help right now. Ed stated that he would agree to go to short term rehab at [address] [place] [address] in [place] today. Ed contacted his , Julissa and confirmed that his friend can not transport until 3pm or later. SWS spoke with [facility] [place] [address] admissions and confirmed discharge today, by 12noon. Nurse Cristobal completed the Nurse to Nurse. SWS contacted [facility] and [facility] and they both are not available for transport today. SWS contacted [employer] and set up 12noon to transport. O: Discharge Planning for today to arrive no later than 3pm to [address] [place] [address] A: Ed was fully engaged in our conversation and open to going to a SNF upon discharge to decrease the time he is away from work for recovery. P: Discharge today - S INSTRUCTOR Laz Dumont M.D. - 08/15/2019 12:00 PM CST Images from the original note were not included. SUBJECTIVE Patient says that he can't walk as much as yesterday because of a combination of hip pain and stiffness. He feels like his strength is okay. He could walk 1 - 2 blocks ([place]) before his fall, went down and up stairs about twice a week. PT reports that he walked 3 steps on the level in approximately 1 hour. (He has 3 stairs to get into his house and 14 stairs down to the basement for a shower. 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 No cardiac respiratory or symptoms (he is unaware of diagnosis of BPH says he has nocturia 0 to once per night). Says he has had diarrhea about 2-4 times a day for 4 months, about to do an outpatient stool test, was using Imodium. In the hospital he is not on any anti diarrheal and he has not had a bowel movement in 2 days. Patient definitely not interested in a fpc after hospitalization, particularly with experiences his mother had in long-term facilities. 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 Julissa, his , is from [facility] ([facility] near active [facility], [facility]). Patient familiar with balut (Nicaraguan breakfast dish of chick boiled in the shell). Medications allopurinol, 300 mg, oral, Daily calcium carbonate, 400 mg of calcium, oral, BID enoxaparin, 40 mg, subcutaneous, Daily ferrous sulfate, 65 mg of iron, oral, Daily furosemide, 40 mg, oral, Daily before dinner pantoprazole, 40 mg, oral, Daily before breakfast multivitamin/mineral-chewable, 4 tablet, oral, Daily sennosides-docusate sodium, 1 tablet, oral, BID sodium chloride, 3 mL, intravenous, Q12H CHANELLE tamsulosin, 0.4 mg, oral, Daily OBJECTIVE Admission Weight: 80 kg Current Weight: 80.1 kg VITAL SIGNS Temperature: [36.7 ??C-37.3 ??C] 36.7 ??C Resp Rate: [16-18] 16 Blood Pressure: (112-138)/(68-73) 125/73 SpO2: [93 %-97 %] 97 % Flow Rate (L/min): [0 L/min] 0 L/min Pulse Rate: [64-86] 65 Intake/output Intake/Output Summary (Last 24 hours) at 08/15/2019 1200 Last data filed at 08/15/2019 0840 Gross per 24 hour Intake 962 ml Output 1400 ml Net -438 ml PHYSICAL EXAM Pleasant man in no distress Vital signs normal as above Lungs: Clear auscultation anterior, no respiratory distress Cardiac: No murmur or gallop, pulses 2+ and regular Abdomen: flat, soft, benign Extremities: Feet neurovascularly intact DIAGNOSTICS Results from last 7 days Lab Units 08/14/19 0600 08/13/19 0606 08/12/19 0955 WBC x10(9)/L -- 6.7 5.8 HEMOGLOBIN g/dL 7.5* 8.1* 8.3* HEMATOCRIT % -- 28.0* 28.1* PLATELETS AUTO x10(9)/L -- 179 225 Results from last 7 days Lab Units 08/12/19 0955 SODIUM P mmol/L 139 POTASSIUM P mmol/L 4.6 CHLORIDE P mmol/L 100 BUN P mg/dL 26* CREP2 EGFR P mL/min/BSA 75 ANION GAP P 12 Lab Results Component Value Date URINESOURCE 11/18/2012 Clean Void Urine CLARITYU Clear 05/12/2015 LEUKOCYTESU Trace (A) 05/12/2015 PROTEINQUALU 29 (H) 11/23/2014 GLUCOSEU Negative 05/12/2015 KETONESU Trace (A) 05/12/2015 SPECGRAV 1.015 05/12/2015 UROBILINOGEN 0.2 05/12/2015 Dx Hip And Pelvis Left 2-3 Views Result Date: 08/12/2019 Impression: Nondisplaced left intertrochanteric trochanteric fracture. Femoral acetabular joints arecongruent. Mild to moderate degenerative changes at both hips. Lumbosacral spondylosis. No suspicious osseous lesion. 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 Had surgery for repair on August 13 by doctor [place]. August 14- slow to rehab August 15- slower to rehab #1 Left intertrochanteric hip fracture #2 Left hip hemiarthroplasty August 13 #3 Possible osteoporosis Case went well, but doctor Ester noted poor bone quality (possible nutritional deficiencies after gastric bypass). Doing okay in rehab. Enoxaparin prophylaxis. #4 Normocytic anemia, iron deficiency Hemoglobin holding after surgery. Patient has been on multivitamins and B12 injections after bypass surgery. Required transfusion and upper endoscopy for anastomotic bleed April 2018. Indefinite at the depression was recommended. Currently iron saturation low at 6%, begin specific iron supplement, although patient does not want take it does not think it will help I still recommend it. He skipped E52sjned last few months (thinks they cause diarrhea which I explained is very unlikely). I suggested aB12 shot here but he strongly prefers to do that at home. Says he will restart at home, and level fine now (>2000). As always patient will make his own decisions, sometimes with the help of Dr. Cintia Copeland, who he trusts. #5 Borderline glucose Hemoglobin A1c 5.7% on admission. Patient is ???post diabetic?? with previous diabetes resolved with gastric bypass #6 Resolved obesity, status post gastric bypass Bypass surgery in 2015 lost about half his body weight. Attention to nutritional requirements, bone health. Patient trust his PCP as do I. I suggest consideration of Dietitian and/or GI consult and bone density determination as outpatient. #7 Diarrhea, currently in remission Wonder if somehow related to bypass surgery but does not sound like dumping syndrome initially. Evaluation by Dr. Duncan Copeland, and consider outpatient GI consultation if continues. #8 BPH On tamsulosin. Minimally symptomatic Hospital Care Issues Code Status: DNR/DNI IV Fluids: IV and Feeding Tubes Active Currently Name: Placement date: Placement time: Site: Days: Peripheral IV Catheter 08/12/19 20 G Left Forearm 08/12/19 1003 Forearm 3 Diet: Current Diet Adult Diet Regular starting at 08/13 0943 VTE Prophylaxis: AntiCoag AntiPlatelet Meds IP/OP Low Molecular Weight Heparins Refills Start End enoxaparin injection 40 mg (LOVENOX) 08/14/2019 40 mg, subcutaneous, Daily Discharge Plans: Will need re-evaluation daily to make sure he is meeting rehab goals. Unless he makes big strides he likely needs long-term help. He is not open to discussing this and fired the geriatric social worker today.(he fired me over a similar issue the day before I became his doctor but he allowed me to be Re hired). I explained that swing bed would be physical therapy in a different hospital and maybe he will consider that. I explained there is a limit on how long he should stay in the acute care hospital. 35 minutes spent managing hospital care so far today. Over half talking with patient and coordination of care. Spoke with nurse, PT, social work. S INSTRUCTOR Marya Paredes P.T.A. - 08/15/2019 11:26 AM CST Physical Therapy Inpatient Treatment SUBJECTIVE Patient's Name: Laz Cuauhtemoc Davilat Referring/Attending Provider: Rahel Ashby M.D. Medical Diagnosis: Pain Joint [M25.50] Fracture Hip Closed Initial Left (HCC) [S72.002A] Reason for Referral: L hip fx Onset Date: 08/12/19 Payor: [employer] PA CARE / Plan: [employer] HMO / Product Type: Medicaid HMO / Family/Caregiver Present: No Patient Comments: Patient reports increased pain this morning but is willing to work with PT. Activity Orders (From admission, onward) Start Ordered 08/13/19 0943 Activity: Up with Assistance Until discontinued Comments: When PT OKs Question: Activity Level: Answer: Up with Assistance 08/13/19 0942 08/12/19 1411 Fall precautions Continuous 08/12/19 1414 08/12/19 1407 Activity: Up with Assistance Until discontinued Comments: Encourage patient to be up for meals Ambulate as much as possible considering previous activity level and physical functioning Resume activity level following recovery from procedure and/or tests unless otherwise directed Question: Activity Level: Answer: Up with Assistance 08/12/19 1414 OBJECTIVE Pain Assessment Pain Assessment: FACES Pain Scale-Revised(patient does not rate pain) Faces Pain Scale: 4 Measures - Tools Bed Mobility - Supine to Sit Level of Assistance: Supervision/Set-up Comments: verbal cues for technique, patient instructed in use of gait belt as leg rubber covering machine operator to assist left LE to edge of bed, patient refuses to have assistance and is very slow with moving, patient doesuse bed rails to assist to edge of bed as well Transfer - Sit to Stand # of Assistants: 1 Device: Front wheeled walker Level of Assistance: Supervision/Set-up Comments: patient refuses assist to come to stand but is very slow in moving and takes 3 tries before being able to come to standing position Transfer - Stand to Sit # of Assistants: 1 Level of Assistance: Supervision/Set-up Device: Front wheeled walker Comments: patient again refuses to have assist, patient is safe but slow with transitional movements, patient able to scoot back in chair independently Gait Assessment # of Assistants: 1 Level of Assistance: Supervision/Set-up Device: Front wheeled walker Distance (m): 1 m Surface: level Cuing: Verbal Assessment of Gait: very slow step to pattern, self limits WB on LLE due to pain Training/Intervention: use of gait belt, verbal cues for proper sequencing of gait Response: patient demonstrates good safety awareness and follows cues appropriately, patient likes to perform mobility without assistance and is very slow in doing so Assessment Discharge Considerations: Discharge Recommendation: Ongoing skilled therapy recommended in a post-acute setting(at this time recommendation is for patient to go to post acute setting for further rehab as patient cannot tolerate gait in household distance and requires use of bed rails to transfer out of bed, if mobility improves patient may be able to go home) Equipment Recommended PT: Walker Clinical Impression: Mr. Luna was admitted 08/12/2019 with a diagnosis of: Pain Joint [M25.50] Fracture Hip Closed Initial Left (HCC) [S72.002A]. Currently, patient presents with limitations including difficulty with bed mobility, transfers, gait, and stair negotiation. Education was provided regarding evaluative findings, diagnosis, prognosis, potential risks and benefits of rehabilitation interventions. Therapy findings and recommendations were discussed with patient, RN and PT. Rehab Potential: Good Functional Goals and Timeframes: PT Goal #1: Patient will require SBA with bed mobility PT Goal #2: Patient will perform transfers with SBA PT Goal #3: Patient will be able to ambulate 20 m with FWW PT Goal #4: Patient will be able to negotiate going up/down 4 stairs. Progress: Slow progress, decreased activity tolerance(PT POC reviewed and unchanged) Plan Patient agrees with the plan of care and goals. Plan: Continue with current plan PT Frequency: Daily PT Duration: until goals met or discharge Inpatient PT Received On Date: 08/15/19 Requires Inpatient Follow-Up: Yes PT - Next Inpatient Appointment: 08/16/19 Plan for next session: continue to progress mobility as tolerated. Other PT Comments: Patient states that he wants to go home and will only go home and at this time will not go to post acute setting, discussed with patient that this is the recommendation for the safest place and he needs more rehab for improved mobility Treatment/Interventions: Therapeutic functional activity, Gait training, Therapeutic exercise Time Spent with Patient Gait Training (min): 30 min Therapeutic Activity (min): 30 min Total Timed Units (min): 60 min Total Treatment Time (min): 60 min Functional G-code Worksheet Marya Paredes P.T.A. [facility], [facility], Third Floor [address] [facility] [address] Dept: [phone] S INSTRUCTOR Ml Ha L.S.W. - 08/15/2019 11:10 AM CST S: SWS consulted with Nurse Viviana, PT Marya and Dr. Dumont. SWS met with Ed he stated that he is likely to have a friend be able to come and transport him. Ed stated that he wants to be home as long as possible, because the bank is going to take away his home and trailer truck. Ed explained that he owes $1,000 a month on his trailer and will be out of work for the next 6 weeks. Ed stated that he does not have any additional financial supports or insurance to cover for such a situation. SWS verified that Dr. Ashby stated that the hospital would pay for a mobility van transport if hisfriend is not able to transport upon discharge. Ed stated again that he is hopeful to have his friend transport. SWS passed this information onto Hillary Sotomayor/Nurse Aboriginal Ceremonial Celebrant. SWS Shared with Ed that a person is determined to be medically stable when they no longer need to beunder the direct eyes of a physician and can move to the next step of their recovery. It does not mean that a person is 100%, but able to continue recovery out of the hospital. It is not in a person???s best interest to remain in the hospital any longer than needed, as it can increase risk for infection and deconditioning. SWS advised that PT is recommending short term rehab and discussed Swing Bed's with Ed. He stated that he is not interested in any fpc or and followed up with [address] [place] [address]/ Nathalia [phone]., Fax: [phone]. O: Discharge planning continued, Ed was sitting up in the chair and fully engaged in the conversation A: Ed enjoys sarcastic humor and consistent communication. Ed becomes frustrated if he feels he is being misinformed. P: Discharge likely tomorrow, per Dr. Dumont. Transport to be determined. S INSTRUCTOR Kacie Huerta APRN, C.N.P., D.N.P. - 08/15/2019 8:10 AM CST .. SUBJECTIVE HISTORY OF PRESENT ILLNESS POD# 2 s/p left ORIF Hip. Patient is tolerating pain on oral pain medications but is using some IV meds at times. Denies numbness, tingling, SOB, CP, dizziness, lightheadedness. Reports pain with motion and ambulation. Working with PT. OBJECTIVE PHYSICAL EXAMINATION AOx3. NAD. CMS intact. Capillary refill less than 3 seconds. Sensation intact to LE. Strength to resistance. Dressing c/d/i. DIAGNOSTICS LABS: Lab Results Component Value Date HGB 7.5 (L) 08/14/2019 Lab Results Component Value Date INR 0.9 08/12/2019 PT 8.8 08/12/2019 ASSESSMENT / PLAN PLAN: Continue per ORIF Hip. Continue PT per protocol. Weight bearing: WBAT. Continue to work with PT Keep Aquacel dressing on for 7 days post op. May shower over dressing but do not submerge in water. Discussed DVT prophylactic with enteric-coated aspirin twice daily but patient refuses. We did discuss the risk of blood clots and he states that he is aware. Will have him follow up in [place] with Orthopedics in 2 weeks. Possible discharge today pending orthopedic, PT, and medical clearance. Laz Montelongo M.D. - 08/14/2019 12:40 PM CST Images from the original note were not included. SUBJECTIVE Pleasant man with whom I had a good conversation today (yesterday when I met the patient for the 1sttime he quickly asked me to leave). Says he walked in the [place]ura with physical therapist but she is not sure whether he will be ready for discharge tomorrow. He has 3 stairs to get into his house and 13 stairs down to the basement for a shower. 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 No cardiac respiratory or symptoms (he is unaware of diagnosis of BPH says he has nocturia 0 to once pernight). Says he has had diarrhea about 2-4 times a day for 4 months, about to do an outpatient stooltest, was using Imodium. In the hospital he is not on any anti diarrheal and he has not had a bowel movement in 2 days. Patient definitely not interested in a fpc after hospitalization, particularly with experiences his mother had in long-term facilities. 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 Julissa, his , is from [facility] near active [facility], [facility]). Patient familiar with balut (Nicaraguan breakfast dish of chick boiled in the shell). Medications allopurinol, 300 mg, oral, Daily calcium carbonate, 400 mg of calcium, oral, BID enoxaparin, 40 mg, subcutaneous, Daily furosemide, 40 mg, oral, Daily before dinner pantoprazole, 40 mg, oral, Daily before breakfast [START ON 08/15/2019] multivitamin/mineral-chewable, 4 tablet, oral, Daily sennosides-docusate sodium, 1 tablet, oral, BID sodium chloride, 3 mL, intravenous, Q12H CHANELLE tamsulosin, 0.4 mg, oral, Daily OBJECTIVE Admission Weight: 80 kg Current Weight: 79.9 kg VITAL SIGNS Temperature: [36.3 ??C-37.5 ??C] 36.3 ??C Resp Rate: [16-18] 18 Blood Pressure: (102-122)/(61-75) 109/68 SpO2: [93 %-99 %] 93 % Flow Rate (L/min): [0 L/min] 0 L/min Pulse Rate: [65-75] 71 Intake/output Intake/Output Summary (Last 24 hours) at 08/14/2019 1258 Last data filed at 08/14/2019 0824 Gross per 24 hour Intake 1120 ml Output 1770 ml Net -650 ml PHYSICAL EXAM Pleasant man in no distress Vital signs normal as above Lungs: Clear auscultation anterior, no respiratory distress Cardiac: No murmur or gallop, pulses 2+ and regular Abdomen: flat, soft, benign Extremities: Feet neurovascularly intact DIAGNOSTICS Results from last 7 days Lab Units 08/14/19 0600 08/13/19 0606 08/12/19 0955 WBC x10(9)/L -- 6.7 5.8 HEMOGLOBIN g/dL 7.5* 8.1* 8.3* HEMATOCRIT % -- 28.0* 28.1* PLATELETS AUTO x10(9)/L -- 179 225 Results from last 7 days Lab Units 08/12/19 0955 SODIUM P mmol/L 139 POTASSIUM P mmol/L 4.6 CHLORIDE P mmol/L 100 BUN P mg/dL 26* CREP2 EGFR P mL/min/BSA 75 ANION GAP P 12 Lab Results Component Value Date URINESOURCE 11/18/2012 Clean Void Urine CLARITYU Clear 05/12/2015 LEUKOCYTESU Trace (A) 05/12/2015 PROTEINQUALU 29 (H) 11/23/2014 GLUCOSEU Negative 05/12/2015 KETONESU Trace (A) 05/12/2015 SPECGRAV 1.015 05/12/2015 UROBILINOGEN 0.2 05/12/2015 Dx Hip And Pelvis Left 2-3 Views Result Date: 08/12/2019 Impression: Nondisplaced left intertrochanteric trochanteric fracture. Femoral acetabular joints arecongruent. Mild to moderate degenerative changes at both hips. Lumbosacral spondylosis. No suspicious osseous lesion. 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 Had surgery for repair on August 13 by doctor Norman. #1 Left intertrochanteric hip fracture #2 Left hip hemiarthroplasty August 13 #3 Possible osteoporosis Case went well, but doctor Norman noted poor bone quality (possible nutritional deficiencies after gastric bypass). Doing okay in rehab. Enoxaparin prophylaxis. #4 Normocytic anemia, iron deficiency Hemoglobin holding after surgery. Patient has been on multivitamins and B12 injections after bypass surgery. Required transfusion and upper endoscopy for anastomotic bleed April 2018. Indefinite at the depression was recommended. Currently iron saturation low at 6%, begin specific iron supplement. B12 levels are pending; he skipped his shots last few months (thinks the cause diarrhea which I explained is very unlikely). I suggested a B12 shot here but he strongly prefers to do that at home. Says lisa blancas. #5 Borderline glucose Hemoglobin A1c 5.7% on admission. Patient is ???post diabetic?? with previous diabetes resolved with gastric bypass #6 Resolved obesity, status post gastric bypass Bypass surgery in 2014 lost about half his body weight. Attention to nutritional requirements, bone health. Patient trust his PCP as do I. I suggest consideration of Dietitian and/or GI consult and bone density determination as outpatient. #7 Diarrhea, currently in remission Wonder if somehow related to bypass surgery but does not sound like dumping syndrome initially. Evaluation by Dr. Duncan Copeland, and consider outpatient GI consultation if continues. #8 BPH On tamsulosin. Minimally symptomatic Hospital Care Issues Code Status: DNR/DNI IV Fluids: IV and Feeding Tubes Active Currently Name: Placement date: Placement time: Site: Days: Peripheral IV Catheter 08/12/19 20 G Left Forearm 08/12/19 1003 Forearm 2 Diet: Current Diet Adult Diet Regular starting at 08/13 0943 VTE Prophylaxis: AntiCoag AntiPlatelet Meds IP/OP Low Molecular Weight Heparins Refills Start End enoxaparin injection 40 mg (LOVENOX) 08/14/2019 40 mg, subcutaneous, Daily Discharge Plans: Likely on August 15, home with . Will need re-evaluation daily to make sure he is meeting rehab goals. 45 minutes spent managing hospital care today, over half in information gathering or directly with patient, 2 visits so far today. S INSTRUCTOR Lacie Donaldson PSilvano. - 08/13/2019 12:48 PM CST Attempted to get patient up today. Patient continues to have numbness in legs. Will wait to start PTtomorrow 08/14/19. S INSTRUCTOR Alyssa Shepherd O.T. - 08/13/2019 11:43 AM CST OT order acknowledged. EMR reviewed. Surgery completed this date. OT evaluation planned for a.m. 08/15/19. Rahel Schroeder M.D. - 08/13/2019 10:53 AM CST Images from the original note were not included. DATE OF ADMISSION: 08/12/2019 LOS: 1 day SUBJECTIVE Ed was seen after surgery. present at bedside. He reports decreased sensation especially to his left lower extremity. Currently has no pain. Has no questions or concerns at the moment. Review of Systems Please see HPI/Subjective for pertinent positives, otherwise ROS negative Medications allopurinol, 300 mg, oral, Daily calcium carbonate, 400 mg of calcium, oral, BID ceFAZolin, 2 g, intravenous, Q8H [START ON 08/14/2019] enoxaparin, 40 mg, subcutaneous, Daily furosemide, 40 mg, oral, Daily before dinner pantoprazole, 40 mg, oral, Daily before breakfast multivitamin/mineral-chewable, 2 tablet, oral, Daily sennosides-docusate sodium, 1 tablet, oral, BID sodium chloride, 3 mL, intravenous, Q12H CHANELLE tamsulosin, 0.4 mg, oral, Daily VITAL SIGNS Blood pressure 102/70, pulse 67, temperature 36.8 ??C, temperature source Temporal, resp. rate 18, height 182.9 cm, weight 81 kg, SpO2 99 %. Admission Weight: 80 kg Current Weight: 81 kg Constitutional: Negative for fever and loss of appetite. Respiratory: Negative for dyspnea. Cardiovascular: Negative for chest pain, pressure or tightness. Gastrointestinal: Negative for diarrhea, heartburn and nausea. Musculoskeletal: Positive for back pain. The following systems were negative: OBJECTIVE Constitutional General: He is not in acute distress. Cardiovascular Rate and Rhythm: Normal rate and regular rhythm. Heart sounds: Normal heart sounds. Pulmonary Effort: Pulmonary effort is normal. Breath sounds: Normal breath sounds. Abdominal General: Bowel sounds are normal. Palpations: Abdomen is soft. Tenderness: There is no tenderness. Skin General: Skin is warm and dry. Comments: Left hip dressing in place, no bleeding or drainage noted through dressing. Neurological Mental Status: He is alert. Psychiatric Mood and Affect: Mood and affect normal. Behavior: Behavior is cooperative. Lab Results I reviewed the labs and results in the EHR today. Results from last 7 days Lab Units 08/13/19 0606 08/12/19 0955 WBC x10(9)/L 6.7 5.8 HEMOGLOBIN g/dL 8.1* 8.3* HEMATOCRIT % 28.0* 28.1* PLATELETS AUTO x10(9)/L 179 225 Results from last 7 days Lab Units 08/12/19 0955 SODIUM P mmol/L 139 POTASSIUM P mmol/L 4.6 CHLORIDE P mmol/L 100 BUN P mg/dL 26* CREP2 EGFR P mL/min/BSA 75 ANION GAP P 12 Diagnostics Dx Hip And Pelvis Left 2-3 Views Result Date: 08/12/2019 Impression: Nondisplaced left intertrochanteric trochanteric fracture. Femoral acetabular joints arecongruent. Mild to moderate degenerative changes at both hips. Lumbosacral spondylosis. No suspicious osseous lesion. IMPRESSION/REPORT/PLAN #1 Fracture Hip Intertrochanteric Closed Initial Left (HCC) - POD 0 s/p ORIF - Pain management and DVT prophylaxis per surgical team. #2 Diabetes Mellitus Type 2 (HCC) - resolved status post gastric bypass. - patient requested a regular diet. - daily blood glucose of or more frequently as needed. - patient does not want insulin for correction regardless of what his blood sugars are. #3 Benign Prostatic Hyperplasia Without Obstruction Continue tamsulosin. #4 History Of Falling Mechanical fall. Fall precautions. #5 Anemia Microcytic - anemia of chronic disease. - history of GI bleed a year ago due to gastro jejunal ulcer. - patient is currently on a chewable multivitamin with iron however that is not providing sufficientiron supplementation. - I see that PCP had discussed iron infusions. - will continue to monitor. #6 Diarrhea - patient reports chronic loose stools. - he typically takes Imodium almost on a daily basis. - no BM since admission. - unsure if this is related to malabsorption from bypass surgery. - consider GI follow-up. Patient and indicated understanding and agreed with plan. HOSPITAL CARE ISSUES Code status: Full Code IV fluids: IV and Feeding Tubes Active Currently Name: Placement date: Placement time: Site: Days: Peripheral IV Catheter 08/12/19 20 G Left Forearm 08/12/19 1003 Forearm 1 Diet: Adult Diet Regular VTE PPX: AntiCoag AntiPlatelet Meds IP/OP Low Molecular Weight Heparins Refills Start End enoxaparin injection 40 mg (LOVENOX) 08/14/2019 40 mg, subcutaneous, Daily S INSTRUCTOR documented in this encounter H&P Notes John Norman M.D. - 08/13/2019 8:39 AM CST INTERVAL HISTORY AND PHYSICAL PRE-PROCEDURE UPDATE H&P reviewed. The patient was examined and there are no significant changes to the H&P. I discussed with this patient the tailored Risks, Benefits, Alternatives of treatment for their orthopedic condition given their specific medical and orthopedic issues at length today. The patient understands these. All questions were answered and they desire to precede with surgical treatment. John Norman M.D. S INSTRUCTOR Source Note - Juliette Bettencourt APRN, C.N.P., D.N.P. - 08/12/2019 2:22 PM CHESS INSTRUCTOR SUBJECTIVE CHIEF COMPLAINT Mr. Laz Luna is a 59 y.o. male who presents with left hip pain. HISTORY OF PRESENT ILLNESS Patient transferred from [place] emergency room this afternoon. Patient works by [employer] and fell on ice while loading his trailer. Patient diagnosed with left hip fracture. Patient rates pain 0/10 when he is not moving and 10/10 when he is moving. Patient states that pain is concentrated on left hip joint only. Left lower extremity range of motion is limited. Dr. Norman orthopedics consulted and has accepted the patient. Plan is for correction of left hip fracture tomorrow 08/13/2019. NPO at midnight, IVF to start at midnight. Patient aware of plan of care. Patient lives with his Magali and she takes care of all his medications. Patient states that hewill call his and updated her on the plan of care. Patient's is unable able to drive but plans on getting a ride to [facility] tomorrow. Patient scheduled for the following procedure: Open reduction internal fixation femur Procedure is: - Intermediate Risk RISK STRATIFICATION Functional status: - Functional Class II: Able to perform 5-7 METS Revised [Hyman] Cardiac Risk Index (RCRI) Hx ischemic heart disease: No Hx heart failure: No Hx cerebrovascular disease (stroke or TIA): No Diabetes requiring perioperative insulin use: No CKD (stage 3 or creatinine >2.0): No High-risk surgery type: No RCRI Score = 0.4% The patient is deemed to have a medically satisfactory risk profile for the planned surgical procedure, and a low risk of a ramon-operative cardiac event I have reviewed and updated the following: Past Medical History: Diagnosis Date ??? Anemia ??? Diabetes Mellitus NOS Past Surgical History: Procedure Laterality Date ??? BYPASS OF STOMACH N/A 11/19/2014 Gastric bypass ??? CARDIAC PACEMAKER PLACEMENT ??? CHONDRECTOMY OF SPINE N/A 02/19/1989 Discectomy ??? CYSTOSCOPY kidney stone ??? ESOPHAGOGASTRODUODENOSCOPY N/A 04/13/2018 Procedure: ESOPHAGOGASTRODUODENOSCOPY; Surgeon: Rene Carlson M.D.; Location: [facility] GI [facility] ??? LAPAROSCOPIC ASSISTED - GASTRIC BYPASS N/A 11/21/2014 Laparoscopic assisted - Gastric bypass ??? OTHER CONVERTED SHX (SEE COMMENT) N/A 01/19/2017 >Implantation of dual-chamber permanent pacemaker. ??? OTHER SURGICAL HISTORY cystoscopy ??? UPPER GASTROINTESTINAL ENDOSCOPY N/A 11/21/2014 Upper gastrointestinal endoscopy Family History Problem Relation Age of Onset ??? Hypertension Father ??? Heart failure Father ??? Diabetes Mother ??? Kidney disease Mother ??? Heart attack Mother Social History Socioeconomic History ??? Marital status: Spouse name: None ??? Number of children: None ??? Years of education: None ??? Highest education level: None Occupational History ??? 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 Financial resource strain: None ??? Food insecurity: Worry: None Inability: None ??? Transportation needs: Medical: None Non-medical: None Tobacco Use ??? Smoking status: Never Smoker ??? Smokeless tobacco: Never Used Substance and Sexual Activity ??? Alcohol use: No ??? Drug use: No ??? Sexual activity: Defer Lifestyle ??? Physical activity: Days per week: None Minutes per session: None ??? Stress: None Relationships ??? Social connections: Talks on phone: None Gets together: None Attends pentecostalism service: None Active member of club or organization: None Attends meetings of clubs or organizations: None Relationship status: None ??? Intimate partner violence: Fear of current or ex partner: None Emotionally abused: None Physically abused: None Forced sexual activity: None Other Topics Concern ??? None Social History Narrative Lives with . Allergies Allergen Reactions ??? Ciprofloxacin Other (see comments) Genital swelling ??? Haemophilus Influenzae GI intolerance Diarrhea Current Outpatient Medications on File Prior to Encounter Medication Sig Last Dose ??? acetaminophen (TYLENOL) 500 mg tablet Take 1,000 mg by mouth 3 (three) times a day as needed forpain. Past Week at Unknown time ??? allopurinol (ZYLOPRIM) 300 mg tablet TAKE ONE TABLET BY MOUTH DAILY 08/12/2019 at Unknown time ??? calcium carbonate (TUMS) 500 mg (200 mg calcium) chewable tablet Chew 2 tablets 2 (two) times a day. 08/12/2019 at Unknown time ??? furosemide (LASIX) 40 mg tablet TAKE ONE TABLET BY MOUTH DAILY (Patient taking differently: Pt takes at suppertime ) 08/11/2019 at supper ??? loperamide (IMODIUM A-D) 2 mg capsule Take 2 mg by mouth 4 (four) times a day as needed for diarrhea. 08/12/2019 at Unknown time ??? omeprazole (PriLOSEC) [address] capsule Take 1 capsule (20 mg total) by mouth every morning before breakfast. 08/12/2019 at Unknown time ??? PEDIATRIC MULTIVITAMIN NO.76 (FLINTSTONES COMPLETE ORAL) Take 4 tablets by mouth daily. 08/12/2019 at AM ??? tamsulosin (FLOMAX) 0.4 mg 24 hr capsule Take 0.4 mg by mouth daily. 08/12/2019 at AM ??? [DISCONTINUED] sildenafil (VIAGRA) 50 mg tablet Take 50-100 mg by mouth once as needed. Take by mouth PRN 30-60 minutes prior to sexual activity max dose: 100 mg per day ??? cyanocobalamin, vitamin B-12, 1,000 mcg/mL kit Inject 1,000 mcg under the skin every 30 (thirty)days. More than a month at Unknown time ??? [DISCONTINUED] allopurinol (ZYLOPRIM) 300 mg tablet Take 300 mg by mouth. ??? [DISCONTINUED] cyanocobalamin (VITAMIN B12) 1,000 mcg/mL injection INJECT 1ML SUBCUTANEOUSLY EVERY 30 DAYS ??? [DISCONTINUED] gabapentin (NEURONTIN) 600 mg tablet TAKE TWO TABLETS (1200MG) BY MOUTH THREE TIMES A DAY Unknown at Unknown time ??? [DISCONTINUED] sennosides-docusate sodium (SENNA WITH DOCUSATE SODIUM) 8.6- 50 mg per tablet Take2 tablets by mouth 2 (two) times a day. Unknown at Unknown time REVIEW OF SYSTEMS Gastrointestinal: Positive for diarrhea. Due to hx of gastric bypass Musculoskeletal: Positive for arthralgias, pain or stiffness in the joints and muscle pain/stiffness. Left hip joint All other systems reviewed and are negative. OBJECTIVE VITAL SIGNS Temperature: [36 ??C-37.1 ??C] 37.1 ??C Heart Rate: [68] 68 Resp Rate: [16] 16 Blood Pressure: (113-136)/(61-90) 125/79 SpO2: [97 %-100 %] 100 % Height: [182.9 cm] 182.9 cm Weight: [80 kg-83.3 kg] 80 kg BSA (Calculated - sq m): [2.01 sq meters-2.06 sq meters] 2.01 sq meters BMI (Calculated): [23.9 kg/m??-24.9 kg/m??] 23.9 kg/m?? Pulse Rate: [58-74] 68 PHYSICAL EXAM Vitals signs reviewed. Constitutional Appearance: Normal appearance. Cardiovascular Rate and Rhythm: Normal rate. Pulses: Normal pulses. Heart sounds: Normal heart sounds. Pulmonary Effort: Pulmonary effort is normal. Breath sounds: Normal breath sounds. Abdominal General: Abdomen is flat. Bowel sounds are normal. Palpations: Abdomen is soft. Musculoskeletal General: Tenderness and signs of injury present. Comments: Left hip fracture Skin General: Skin is warm and dry. Capillary Refill: Capillary refill takes less than 2 seconds. Neurological General: No focal deficit present. Mental Status: He is alert and oriented to person, place, and time. Psychiatric Mood and Affect: Mood normal. DIAGNOSTICS I have reviewed the labs, xray and diagnostics from admission and [place] ED. ASSESSMENT / PLAN #1 Fracture Hip Intertrochanteric Closed Initial Left (HCC) Dr [facility] accepting patient, plan is for surgery 08/13/2019 Follow orthopedic recommendations #2 History Of Falling Fall precautions in place Ambulate with assistance #3 Diabetes Mellitus Type 2 ([facility]) Accucheck BID, Novolog BID Hypoglycemic measures in place Diet controlled Last A1C 5.9 on 09/28/18 #4 Benign Prostatic Hyperplasia Without Obstruction Resume home medications tamsulosin and allopurinol HOSPITAL CARE ISSUES: Code status: DNR/DNI Pt wishes to be DNR intra-operatively, pt is OK with being intubated for general anesthesia. IV fluids: Normal saline to start at midnight Activity: Up as tolerated with assistance Diet: Regular VTE PPX: SCDs Nausea: Zofran Pain: Acetaminophen, oxycodone, morphine Total time spent with the patient 60 minutes with more than 50% of time spent in counseling, coordination of care, explanation of plan of care, chart review, and [id number]-[id number] interview. S INSTRUCTOR Juliette Bettencourt APRN, C.N.P., D.N.P. - 08/12/2019 2:22 PM CST SUBJECTIVE CHIEF COMPLAINT Mr. Laz Luna is a 59 y.o. male who presents with left hip pain. HISTORY OF PRESENT ILLNESS Patient transferred from [place] emergency room this afternoon. Patient works by [employer] and fell on ice while loading his trailer. Patient diagnosed with left hip fracture. Patient rates pain 0/10 when he is not moving and 10/10 when he is moving. Patient states that pain is concentrated on left hip joint only. Left lower extremity range of motion is limited. Dr. Norman orthopedics consulted and has accepted the patient. Plan is for correction of left hip fracture tomorrow 08/13/2019. NPO at midnight, IVF to start at midnight. Patient aware of plan of care. Patient lives with his Magali and she takes care of all his medications. Patient states that hewill call his and updated her on the plan of care. Patient's is unable able to drive but plans on getting a ride to [facility] tomorrow. Patient scheduled for the following procedure: Open reduction internal fixation femur Procedure is: - Intermediate Risk RISK STRATIFICATION Functional status: - Functional Class II: Able to perform 5-7 METS Revised [Hyman] Cardiac Risk Index (RCRI) Hx ischemic heart disease: No Hx heart failure: No Hx cerebrovascular disease (stroke or TIA): No Diabetes requiring perioperative insulin use: No CKD (stage 3 or creatinine >2.0): No High-risk surgery type: No RCRI Score = 0.4% The patient is deemed to have a medically satisfactory risk profile for the planned surgical procedure, and a low risk of a ramon-operative cardiac event I have reviewed and updated the following: Past Medical History: Diagnosis Date ??? Anemia ??? Diabetes Mellitus NOS Past Surgical History: Procedure Laterality Date ??? BYPASS OF STOMACH N/A 11/19/2014 Gastric bypass ??? CARDIAC PACEMAKER PLACEMENT ??? CHONDRECTOMY OF SPINE N/A 02/19/1989 Discectomy ??? CYSTOSCOPY kidney stone ??? ESOPHAGOGASTRODUODENOSCOPY N/A 04/13/2018 Procedure: ESOPHAGOGASTRODUODENOSCOPY; Surgeon: Rene Carlson M.D.; Location: [facility] GI LAB ??? LAPAROSCOPIC ASSISTED - GASTRIC BYPASS N/A 11/21/2014 Laparoscopic assisted - Gastric bypass ??? OTHER CONVERTED SHX (SEE COMMENT) N/A 01/19/2017 >Implantation of dual-chamber permanent pacemaker. ??? OTHER SURGICAL HISTORY cystoscopy ??? UPPER GASTROINTESTINAL ENDOSCOPY N/A 11/21/2014 Upper gastrointestinal endoscopy Family History Problem Relation Age of Onset ??? Hypertension Father ??? Heart failure Father ??? Diabetes Mother ??? Kidney disease Mother ??? Heart attack Mother Social History Socioeconomic History ??? Marital status: Spouse name: None ??? Number of children: None ??? Years of education: None ??? Highest education level: None Occupational History ??? 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 Financial resource strain: None ??? Food insecurity: Worry: None Inability: None ??? Transportation needs: Medical: None Non-medical: None Tobacco Use ??? Smoking status: Never Smoker ??? Smokeless tobacco: Never Used Substance and Sexual Activity ??? Alcohol use: No ??? Drug use: No ??? Sexual activity: Defer Lifestyle ??? Physical activity: Days per week: None Minutes per session: None ??? Stress: None Relationships ??? Social connections: Talks on phone: None Gets together: None Attends pentecostalism service: None Active member of club or organization: None Attends meetings of clubs or organizations: None Relationship status: None ??? Intimate partner violence: Fear of current or ex partner: None Emotionally abused: None Physically abused: None Forced sexual activity: None Other Topics Concern ??? None Social History Narrative Lives with . Allergies Allergen Reactions ??? Ciprofloxacin Other (see comments) Genital swelling ??? Haemophilus Influenzae GI intolerance Diarrhea Current Outpatient Medications on File Prior to Encounter Medication Sig Last Dose ??? acetaminophen (TYLENOL) 500 mg tablet Take 1,000 mg by mouth 3 (three) times a day as needed forpain. Past Week at Unknown time ??? allopurinol (ZYLOPRIM) 300 mg tablet TAKE ONE TABLET BY MOUTH DAILY 08/12/2019 at Unknown time ??? calcium carbonate (TUMS) 500 mg (200 mg calcium) chewable tablet Chew 2 tablets 2 (two) times a day. 08/12/2019 at Unknown time ??? furosemide (LASIX) 40 mg tablet TAKE ONE TABLET BY MOUTH DAILY (Patient taking differently: Pt takes at suppertime ) 08/11/2019 at supper ??? loperamide (IMODIUM A-D) 2 mg capsule Take 2 mg by mouth 4 (four) times a day as needed for diarrhea. 08/12/2019 at Unknown time ??? omeprazole (PriLOSEC) [address] capsule Take 1 capsule (20 mg total) by mouth every morning before breakfast. 08/12/2019 at Unknown time ??? PEDIATRIC MULTIVITAMIN NO.76 (FLINTSTONES COMPLETE ORAL) Take 4 tablets by mouth daily. 08/12/2019 at AM ??? tamsulosin (FLOMAX) 0.4 mg 24 hr capsule Take 0.4 mg by mouth daily. 08/12/2019 at AM ??? [DISCONTINUED] sildenafil (VIAGRA) 50 mg tablet Take 50-100 mg by mouth once as needed. Take by mouth PRN 30-60 minutes prior to sexual activity max dose: 100 mg per day ??? cyanocobalamin, vitamin B-12, 1,000 mcg/mL kit Inject 1,000 mcg under the skin every 30 (thirty)days. More than a month at Unknown time ??? [DISCONTINUED] allopurinol (ZYLOPRIM) 300 mg tablet Take 300 mg by mouth. ??? [DISCONTINUED] cyanocobalamin (VITAMIN B12) 1,000 mcg/mL injection INJECT 1ML SUBCUTANEOUSLY EVERY 30 DAYS ??? [DISCONTINUED] gabapentin (NEURONTIN) 600 mg tablet TAKE TWO TABLETS (1200MG) BY MOUTH THREE TIMES A DAY Unknown at Unknown time ??? [DISCONTINUED] sennosides-docusate sodium (SENNA WITH DOCUSATE SODIUM) 8.6- 50 mg per tablet Take2 tablets by mouth 2 (two) times a day. Unknown at Unknown time REVIEW OF SYSTEMS Gastrointestinal: Positive for diarrhea. Due to hx of gastric bypass Musculoskeletal: Positive for arthralgias, pain or stiffness in the joints and muscle pain/stiffness. Left hip joint All other systems reviewed and are negative. OBJECTIVE VITAL SIGNS Temperature: [36 ??C-37.1 ??C] 37.1 ??C Heart Rate: [68] 68 Resp Rate: [16] 16 Blood Pressure: (113-136)/(61-90) 125/79 SpO2: [97 %-100 %] 100 % Height: [182.9 cm] 182.9 cm Weight: [80 kg-83.3 kg] 80 kg BSA (Calculated - sq m): [2.01 sq meters-2.06 sq meters] 2.01 sq meters BMI (Calculated): [23.9 kg/m??-24.9 kg/m??] 23.9 kg/m?? Pulse Rate: [58-74] 68 PHYSICAL EXAM Vitals signs reviewed. Constitutional Appearance: Normal appearance. Cardiovascular Rate and Rhythm: Normal rate. Pulses: Normal pulses. Heart sounds: Normal heart sounds. Pulmonary Effort: Pulmonary effort is normal. Breath sounds: Normal breath sounds. Abdominal General: Abdomen is flat. Bowel sounds are normal. Palpations: Abdomen is soft. Musculoskeletal General: Tenderness and signs of injury present. Comments: Left hip fracture Skin General: Skin is warm and dry. Capillary Refill: Capillary refill takes less than 2 seconds. Neurological General: No focal deficit present. Mental Status: He is alert and oriented to person, place, and time. Psychiatric Mood and Affect: Mood normal. DIAGNOSTICS I have reviewed the labs, xray and diagnostics from admission and [place] ED. ASSESSMENT / PLAN #1 Fracture Hip Intertrochanteric Closed Initial Left (HCC) Dr [facility] accepting patient, plan is for surgery 08/13/2019 Follow orthopedic recommendations #2 History Of Falling Fall precautions in place Ambulate with assistance #3 Diabetes Mellitus Type 2 (HCC) Accucheck BID, Novolog BID Hypoglycemic measures in place Diet controlled Last A1C 5.9 on 09/28/18 #4 Benign Prostatic Hyperplasia Without Obstruction Resume home medications tamsulosin and allopurinol HOSPITAL CARE ISSUES: Code status: DNR/DNI Pt wishes to be DNR intra-operatively, pt is OK with being intubated for general anesthesia. IV fluids: Normal saline to start at midnight Activity: Up as tolerated with assistance Diet: Regular VTE PPX: SCDs Nausea: Zofran Pain: Acetaminophen, oxycodone, morphine Total time spent with the patient 60 minutes with more than 50% of time spent in counseling, coordination of care, explanation of plan of care, chart review, and [id number]-[id number] interview. S INSTRUCTOR documented in this encounter Consult Notes Alyssa Shepherd O.T. - 08/15/2019 4:08 PM CST Consults Occupational Therapy Inpatient Evaluation/Treatment By co-signing this note, the provider certifies the therapy being provided to this patient is reasonable and necessary for the diagnosis or treatment of this patient. SUBJECTIVE Patient's Name: Laz Luna Referring/Attending Provider: Rahel Ashby M.D. Medical Diagnosis: Pain Joint [M25.50] Fracture Hip Closed Initial Left (HCC) [S72.002A] Reason for Referral: L hip fx Onset Date: 08/12/19 Payor: [facility] / Plan: [facility] HMO / Product Type: Medicaid HMO / PERTINENT MEDICAL / SURGICAL HISTORY: Patient Active [...] Diarrhea ??? Impaired Glucose Tolerance ??? Osteoporosis Past Surgical History: Procedure Laterality Date ??? BYPASS OF STOMACH N/A 11/19/2014 Gastric bypass ??? CARDIAC PACEMAKER PLACEMENT ??? CHONDRECTOMY OF SPINE N/A 02/19/1989 Discectomy ??? CYSTOSCOPY kidney stone ??? ESOPHAGOGASTRODUODENOSCOPY N/A 04/13/2018 Procedure: ESOPHAGOGASTRODUODENOSCOPY; Surgeon: Rene Carlson M.D.; Location: [facility] GI LAB ??? LAPAROSCOPIC ASSISTED - GASTRIC BYPASS N/A 11/21/2014 Laparoscopic assisted - Gastric bypass ??? OPEN REDUCTION INTERNAL FIXATION FEMUR Left 08/13/2019 Procedure: OPEN REDUCTION INTERNAL FIXATION LEFT FEMUR; Surgeon: John Norman M.D.; Location:[facility] OR ??? OTHER CONVERTED SHX (SEE COMMENT) N/A 01/19/2017 >Implantation of dual-chamber permanent pacemaker. ??? OTHER SURGICAL HISTORY cystoscopy ??? UPPER GASTROINTESTINAL ENDOSCOPY N/A 11/21/2014 Upper gastrointestinal endoscopy History of Present Illness: Patient slipped and fell on the ice. 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 4 steps in from garage) Home Access: Stairs to enter without rails(reports 4 steps in from garage without rail) Entrance Stairs-Rails: None Entrance Stairs-Number of Steps: 4 Bathroom Shower/Tub: Walk-in shower(basement level 14 steps L rail descending) Bathroom Toilet: Handicapped height(on main level) Home Equipment Home Adaptive Equipment: Long-handled shoehorn, Other (Comment)(long valve maker) Gait Devices : Walker rolling or standard, Crutches(Reports he has 4WW at home that was his father'sbut not willing to use it as father had a fall with 4WW in past.) Bathroom Equipment: Raised toilet seat without rails, Other (Comment)(walk in shower in basement - 14 steps L rail descending) Family/Caregiver Present: No Patient/Caregiver Goals: return to home, 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 Activity Orders (From admission, onward) Start Ordered 08/13/19 0943 Activity: Up with Assistance Until discontinued Comments: When PT OKs Question: Activity Level: Answer: Up with Assistance 08/13/19 0942 08/12/19 1411 Fall precautions Continuous 08/12/19 1414 08/12/19 1407 Activity: Up with Assistance Until discontinued Comments: Encourage patient to be up for meals Ambulate as much as possible considering previous activity level and physical functioning Resume activity level following recovery from procedure and/or tests unless otherwise directed Question: Activity Level: Answer: Up with Assistance 08/12/19 1414 Precautions Weight Bearing Status: WBAT Other Precautions: Pt prefers to be addressed as Ed. OBJECTIVE Pain Assessment Pain Assessment: FACES Pain Scale-Revised Faces Pain Scale: 3 Pain Type: Surgical pain, Acute pain Pain Location: Hip Pain Orientation: Left Measures - Tools AM-PAC is a functional measure used in post acute care to guide discharge recommendations. Today, Mr. Laz Luna had a standardized score of 38.66. [facility]'s 3-year data, as reported at [facility] 2017, indicates a cut off of 39.4 or greater in daily activity is a fair to good accurate prediction of discharge home. Source: AM-PAC ???6 -Clicks?? functional assessment scores predict acute care hospital discharge destination. Commercial Portfolio Manager. 2014 May; 94 (9): 1256-61. AM-PAC Activity: How much help from another person does the patient currently need??? Putting on and taking off regular lower body clothing?: A lot Putting on and taking off regular upper body clothing?: None Taking care of personal grooming such as brushing teeth?: None Bathing (including washing, rinsing, drying)?: A lot Toileting, which includes using toilet, bedpan, or urinal?: A lot Eating meals?: None AM-PAC Activity: Score Daily Activities Raw Score (max 24): 18 Daily Activities Standardized Score: 38.66 Daily Activities CMS 0-100% Score: 46.65 Daily Activities CMS Modifier: CK Vision-Basic Assessment Current Vision: Wears glasses only for reading Cognition Overall Cognitive Status: Intact Orientation: Oriented X4 Current ADL/IADL Function Eating: Independent Grooming: Setup or clean-up assistance Upper Body Dressing: Setup or clean-up assistance Lower Body Dressing: Partial/moderate assistance(c use of AE) Toileting: Partial/moderate assistance Transfers: Supervision or touching assistance(c increased time) ADL Comments: states spouse will assist as needed. 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 May benefit from post acute setting as pt does not tolerate functional mobility to bathroom this date for toileting, dynamic ADL) Recommended Adaptive Equipment OT: Shower chair Clinical Impression: Mr. Luna is a 59 y.o. who was admitted to the hospital with a diagnosis of: Pain Joint [M25.50] Fracture Hip Closed Initial Left (HCC) [S72.002A]. 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 Currently, patient presents with impairments including R hip fx c ORIF completed 08/13/19 resulting in the following functional deficits: impaired ADL/IADL and functional/ADL transfers. Laz Luna is a 59 y.o. year old direct admit to [facility] following a fall on ice resulting in R hip fracture requiring ORIF completed 08/13/19, admission 08/12/19. Today, Mr. Laz Luna actively participated in education regarding regaining PLOF c basic ADL. Educated in WBAT status. Educatedin adaptive equipment for regaining self care independence. Reports has long valve maker and long shoe horn at home from when his father was living, as well as 4WW. Pt states his father had previously had fall using 4WW so pt does not want to use. Trials sock aide/dressing stick for doffing/donning socks c SBA c increased time after setup. Pt has performed functional mobility from EOB to chair (3-5 steps) only, has not yet ambulated to bathroom. Does perform sit to stand from recliner c cues for hand placement, moving surgical foot ahead & positioning forward in seat c nose over toes positioning to maximize performance. Pt completes sit to stand c close CGA c FWW and increased time. Tolerates standing c FWW 2-3 min trialing weight shift in prep for functional mobility. Pain elevates in stance, however pt prefers to not rate pain, feels increased ache in stance c weightbearing, reduced ache at rest. Therapist verbally educates in bathroom transfers using vanity for support c t/f to elevated toilet on main level. Walk in shower c threshold in basement (14 steps c L rail descending), educ in safe shower t/f. Educ in shower chair/bathroom safety equipment and issued resource. Educ he may benefit from spongebathing initially upon return home if access basement is difficult. Pt receptive. Pt reports he would like to get back to work in [place], does state he would not be able to get into his truckat this time, but feels once in he would be able to get in/out, he could drive as uses R foot only, only uses clutch when starting & stopping, otherwise shift without clutch. Pt adamant about returning to home c spouse to assist c LB self cares and household tasks as needed and returning to workASAP due to truck loan (loan without medical forgiveness). Does state 3-4 steps without rail on entry from garage into home, however vehicle parked very close to stairs may impact use of stairs. Statesspouse does not drive, unable to move vehicle. At time of OT evaluation, pt would benefit from short term rehab stay due to limitations in moving household distances and impact to LB self cares. Receptive to education regarding ADL & equipment.Pt adamant regarding return to home. OT to further address self care including bathroom transfers, toileting safety in a.m. Bathroom Safety Sheet [id number] provided as patient education with recommendations written down for patient and caregivers. Recommendations: ?? Limitations in functional mobility, activity tolerance during evaluation indicate that pt may benefit from short term rehab to address deficits upon discharge from this facility to progress is return to PLOF/independence c greater ease and reduced duration. ?? OT will reassess self care including toilet t/fs, self toileting, ADL transfers, home safety recommendations 08/16/19. Rehab potential: Mr. Luna has Good potential to achieve established occupational therapy goals within the time frame outlined below. Education was provided regarding evaluative findings, diagnosis, prognosis, potential risks and benefits of rehabilitation interventions. Personal Factors: Emotional status, Needs assistive device, Occupational risk factors Occupational Profile and History review: Brief Performance Deficits: 1 - 3 performance deficits Evaluation Complexity: Low Functional Goals and Timeframes: OT Goal #1: Pt will complete LB dressing using AE as needed c SBA or better in prep for safe discharge. OT Goal #1 Date: 08/15/19 OT Goal #2: Pt will complete toilet transfer & self toileting at SBA or better using assistive device as indicated for safe discharge from this facility. OT Goal #2 Date: 08/15/19 OT Goal #3: Pt will demonstrate understanding of bathroom safety equipment (resource issued) and home safety recommendations to minimize fall risk in prep for safe d/c from this facility. OT Goal #3 Date: 08/15/19 Progress: Progressing toward goals Plan Patient agrees with the plan of care and goals. OT Frequency: Follow-up visit only OT Duration: 1x Inpatient OT Received On Date: 08/15/19 Requires Inpatient Follow-Up: Yes Next Inpatient Appointment: Plan for next session: OT will reassess self care including toilet t/fs, self toileting, ADL transfers, home safety recommendations 08/16/19. Treatment interventions may include: Self-care/home management Time Spent with Patient OT Evaluation (min): 25 min Home Management Training (min): 30 min Time Calculation Total Timed Units (min): 30 min Total Treatment Time (min): 55 min Functional G-code Worksheet Daily Activities Raw Score (max 24): 18 Daily Activities Standardized Score: 38.66 Daily Activities CMS 0-100% Score: 46.65 Daily Activities CMS Modifier: MARYJO Shepherd O.T. [facility], Third Floor [address] [facility] [address] Dept: [phone] S INSTRUCTOR Lacie Donaldson P.T. - 08/14/2019 10:45 AM CST Consults Physical Therapy Inpatient Evaluation/Treatment SUBJECTIVE Patient's Name: Laz Luna Referring/Attending Provider: Rahel Ashby M.D. Medical Diagnosis: Pain Joint [M25.50] Fracture Hip Closed Initial Left (HCC) [S72.002A] Reason for Referral: L hip fx Onset Date: 08/12/19 Payor: [facility] / Plan: [facility] HMO / Product Type: Medicaid HMO / PERTINENT MEDICAL / SURGICAL HISTORY: Patient Active Problem List Diagnosis ??? Flutter Atrial (HCC) ??? Hypertension Essential Primary ??? Diabetes Mellitus Type 2 With Diabetic Neuropathy (HCC) ??? Diabetes Mellitus Type 2 Peripheral Neuropathy (HCC) ??? Diabetes Mellitus Type 2 (HCC) ??? Block Heart ??? Benign Prostatic [...] Left (HCC) ??? Anemia Microcytic ??? Diarrhea Past Surgical History: Procedure Laterality Date ??? BYPASS OF STOMACH N/A 11/19/2014 Gastric bypass ??? CARDIAC PACEMAKER PLACEMENT ??? CHONDRECTOMY OF SPINE N/A 02/19/1989 Discectomy ??? CYSTOSCOPY kidney stone ??? ESOPHAGOGASTRODUODENOSCOPY N/A 04/13/2018 Procedure: ESOPHAGOGASTRODUODENOSCOPY; Surgeon: Rene Carlson M.D.; Location: [facility] GI LAB ??? LAPAROSCOPIC ASSISTED - GASTRIC BYPASS N/A 11/21/2014 Laparoscopic assisted - Gastric bypass ??? OTHER CONVERTED SHX (SEE COMMENT) N/A 01/19/2017 >Implantation of dual-chamber permanent pacemaker. ??? OTHER SURGICAL HISTORY cystoscopy ??? UPPER GASTROINTESTINAL ENDOSCOPY N/A 11/21/2014 Upper gastrointestinal endoscopy History of Present Illness: Patient slipped and fell on the ice. 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) Home Equipment Gait Devices : Walker rolling or standard, Crutches Home Living Type of Home: House Home Layout: Two level(shower in basement) Patient/Caregiver Goals: return to home Activity Orders (From admission, onward) Start Ordered 08/13/19 0943 Activity: Up with Assistance Until discontinued Comments: When PT OKs Question: Activity Level: Answer: Up with Assistance 08/13/19 0942 08/12/19 1411 Fall precautions Continuous 08/12/19 1414 08/12/19 1407 Activity: Up with Assistance Until discontinued Comments: Encourage patient to be up for meals Ambulate as much as possible considering previous activity level and physical functioning Resume activity level following recovery from procedure and/or tests unless otherwise directed Question: Activity Level: Answer: Up with Assistance 08/12/19 1414 OBJECTIVE Pain Assessment Pain Assessment: 0-10 Numeric Pain Intensity Scale Pain Score: (no numeric value given) Pain Type: Surgical pain Pain Location: Hip Pain Orientation: Left Pain Frequency: Intermittent Measures - Tools Bed Mobility Bed Mobility: Yes Bed Mobility - Scooting # of Assistants: 1 Level of Assistance: Supervision/Set-up Device: Bed rail Cuing: Verbal Comments: patient prefers to do by himself; did give verbal cues for proper hand placement and technique Transfer - Sit to Stand # of Assistants: 1 Method: Stand pivot Device: Front wheeled walker Level of Assistance: Supervision/Set-up Comments: bed raised to allow patient to raise self up from bed; verbal cues for proper hand placement Transfer - Stand to Sit # of Assistants: 1 Method: Stand pivot Level of Assistance: Supervision/Set-up Device: Front wheeled walker Comments: verbal cues to bring L leg forward with sitting Transfers Transfer: Yes Balance Static Sitting-Balance: Good (Maintains balance without support) Dynamic Sitting-Balance: Good (Maintains balance without support) Static Standing-Balance: Fair (Maintains balance with handheld assistance) Dynamic Standing-Balance: Fair (Maintains balance with handheld assistance) Gait Assessment # of Assistants: 1 Level of Assistance: Modified Independent Device: Front wheeled walker Distance (m): 1.5 m Cuing: Verbal Quality: Step to Assessment of Gait: moves slow step to gait pattern Training/Intervention: use of gait belt, verbal cues for proper sequencing of gait Response: tolerated well. Patient prefers to perform bed mobility and transfers independently which he does slowly but able to perform. Patient does not like to be hurried and allow him to take his time in doing transfers. Assessment Discharge Considerations: Discharge Recommendation: Ongoing skilled outpatient therapy recommended Equipment Recommended PT: Walker Clinical Impression: Mr. Luna is a 59 y.o. who has been hospitalized 2 day(s) with an admitting diagnosis of: Pain Joint [M25.50] Fracture Hip Closed Initial Left (HCC) [S72.002A]. Prior to hospitalization patient was completing daily activities independently. Currently, patient presents with impairments including impaired ROM, impaired strength resulting in the following functional deficits: decreased bed mobility, transfers and ambulation. Rehab potential: Mr. Luna has Good potential to achieve established physical therapy goals within the time frame outlined below. Education was provided regarding evaluative findings, diagnosis, prognosis, potential risks and benefits of rehabilitation interventions. Therapy findings and recommendations were discussed with patient The treatment plan and discharge recommendations may be modified based upon pt response to treatment. Personal Factors: Emotional status, Needs assistive device Clinical Presentation: Stable Examination elements: 1-2 Clinical Decision Making: Low: no complicating factors, 1-2 eval elements, stable clinical presentation Functional Goals and Timeframes: PT Goal #1: Patient will require SBA with bed mobility PT Goal #2: Patient will perform transfers with SBA PT Goal #3: Patient will be able to ambulate 20 m with FWW PT Goal #4: Patient will be able to negotiate going up/down 4 stairs. Plan Patient agrees with the plan of care and goals. Plan: Plan of care initiated PT Frequency: Daily PT Duration: until goals met or discharge Inpatient PT Received On Date: 08/14/19 Requires Inpatient Follow-Up: Yes Next Inpatient Appointment: 08/15/19 Plan for next session: transfers and gait including stairs Treatment interventions may include: Therapeutic functional activity, Gait training, Therapeutic exercise Time Spent with Patient PT Evaluation (min): 20 min Therapeutic Activity (min): 20 min Total Timed Units (min): 20 min Total Treatment Time (min): 40 min Functional G-code Worksheet Lacie Donaldson P.T. [facility], Third Floor [address] [facility] [address] Dept: [phone] S INSTRUCTOR Ml Ha L.S.W. - 08/12/2019 3:45 PM CST Discharge Planning Assessment SUBJECTIVE Referral Data Referral Source: Early Screen for Discharge Planning Referral Reason: (59 year old, Admit Diagnosis: Hip Fracture) Who was present during the interview?: Patient Integrated Logistics Operations Manager Services Used: No Psychosocial assessment, Coping, adjustment and support, Discharge Planning Disclaimer: The patient was advised regarding the various topics to be interviewed during this evaluation. Patient consented to proceed. The information provided in the assessment is based on review of the medical record as well as the face to face interview with the patient. The patient was advised that the content of this interview will be shared with the health care team. It was discussed with the patient that all medicalstaff are mandated reporters and the patient reported understanding. Patient Information Primary Caregiver: Self(Spouse Julissa h: [phone], c:[phone], supportive neighbors and friends) Legal Information Legal Decision Maker: Self OBJECTIVE Functional Status (ADLs) Functional Status: Independent(Prior to admission was fully independent with all ADL's, including driving ) Assistive Devices: (Lela lift, cane, 2 wheeled walker, 4 wheeled walker, 2 wheelchairs) Behavior: Oriented Communication: Can write, Talks, Understands speaking Environmental Supports Home Environment: House(Ed stated that he did not want to share information about his house, becausethat is private. He did state that he has a one level living home, but the shower is in the basement) Anticipated Modifications to the Patient's Home: None Anticipated Needs/Assistive Devices Transportation Needs: Support from family(Spouse Julissa does not drive, but will have the support of a friend or neighbor to transport upon discharge) Finance/Insurance Primary insurance: [employer] Secondary insurance: N/A Does the Patient have any Financial Concerns?: No Discharge Planning Barriers To Discharge: None Strengths: Support of immediate family, Ability to acquire knowledge Type of Residence: (Ed stated that he did not want to share information about his house, because that is private. He did state that he has a one level living home, but the shower is in the basement) Support Systems: (Spouse Julissa h: [phone], c:[phone], supportive neighbors and friends) Anticipated Discharge Destination: Long-Term Care or Intermediate Care Facility Recommended Discharge Services: Physical Therapy Does the patient need discharge transport arranged?: No ASSESSMENT / PLAN Plan Social Work Services met with Ed and discussed discharge planning. Ed stated that he does not like being asked questions about his home or personal life. 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 Ed stated that he is not trying to be unkind andthat he does not have a good experience with social workers in the past. 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 SWS advised Ed that other disciplines such as Occupational Therapy and Physical Therapy will likely ask him about his home to understand what kind of treatment exercises will help him heal faster. SWS advised that questions about the layout of his home come from a place of caring to identify how to provide the best cares versus any other reason. Ed shared that he has a lot of medical equipment such as a 2 wheeled and 4 wheeled walker. Ed statedthat he does not think he will need any assistive devices upon discharge because he is a quick healer and has a high pain tolerance. SWS discussed with him that he could likely do outpatient PT in [place] at [address] [place] [address], if he would prefer a location closer than [facility]. He stated that he may prefer to stay in the [facility] and [facility] the closest. He stated that he is open to SWS sending a referral to [address] [place] [address] to determine if they have the ability to do outpatient PT for him or any other services. SWS received notice from [address] [place] [address] has accepted him for admission for short term rehab. SWS sent a message to [address] [place] [address] asking what outpatient PT services they provide. Discussed transportation options with patient and , including using a private vehicle, privately paying for a mobility van $50 or more and non-emergent ambulance. Social Work Services (SWS) advised that if insurance does not cover the charge for non-emergent ambulance, it could be a minimum of $3,000 private pay. SWS explained that our physicians have documented the medical need for the transport, although, that does not assure coverage. The patient plans to discharge via friend or neighbor, becausehis Julissa does not drive. Social Work Services (SWS) contact information, including a phone number, was provided to patient, if any need or questions arise. He plans to discharge to home and drive home if needed. Signed by: Maria Guadalupe Feng 08/12/2019 S INSTRUCTOR documented in this encounter Nursing Notes Anika Sprague R.N. - 08/16/2019 11:48 AM CST Problem: PAIN - ADULT Goal: PT VERBALIZES/DEMONSTRATES ADEQUATE COMFORT LEVEL OR BASELINE Outcome: Adequate for Discharge Problem: KNOWLEDGE DEFICIT Goal: Patient/family/caregiver demonstrates understanding of disease process, treatment plan, medications, and discharge instructions Outcome: Adequate for Discharge Problem: INFECTION - ADULT Goal: Absence of infection during hospitalization Outcome: Adequate for Discharge Problem: SKIN/TISSUE INTEGRITY Goal: Skin/Tissue integrity maintained or improved Outcome: Adequate for Discharge Goal: Oral and Nasal mucous membranes remain intact Outcome: Adequate for Discharge Problem: SAFETY ADULT Goal: Maintain a safe environment Outcome: Adequate for Discharge Problem: DISCHARGE PLANNING Goal: Patient discharge needs identified Outcome: Adequate for Discharge Problem: SAFETY ADULT - RISK FOR FALL AND OR FALL INJURY Goal: Patient remains free from fall/fall injury Outcome: Adequate for Discharge Problem: POTENTIAL OR ACTUAL PRESSURE INJURY-ADULT Goal: Manage sensory Perception deficits to maintain and/or improve skin integrity Outcome: Adequate for Discharge Goal: Maintain optimal skin moisture to ensure or improve skin integrity Outcome: Adequate for Discharge Goal: Achieve optimal activity and/or mobility to maintain or improve skin integrity Outcome: Adequate for Discharge Goal: Nutrient intake appropriate for improving, restoring or maintaining skin integrity Outcome: Adequate for Discharge Goal: Minimize friction and/or shear to maintain or improve skin integrity Outcome: Adequate for Discharge Problem: Compromised Skin Integrity Goal: Skin/Tissue integrity maintained or improved Outcome: Adequate for Discharge Goal: Oral and Nasal mucous membranes remain intact Outcome: Adequate for Discharge Goal: Incisions, wounds, or drain sites healing without S/S of infection Outcome: Adequate for Discharge Problem: Incontinence and/or Moisture Goal: Skin integrity is maintained or improved Outcome: Adequate for Discharge Shift Goals: Clinical Goals for the Shift: pt will report adequate pain control this shift Identify possible barriers to meeting goals/advancing plan of care: non-compliance End of Shift Summary: patient taking prn oxy and tylenol as needed- d/c to [facility] in [place]. Denise Morris RPiliN. - 08/16/2019 5:16 AM CST Problem: SAFETY ADULT Goal: Maintain a safe environment Outcome: Progressing Shift Goals: Clinical Goals for the Shift: pt dennis report adequate pain control Identify possible barriers to meeting goals/advancing plan of care: compliance End of Shift Summary: pt refused to rate pain on pain scale. Pt refused pain meds and ice this shiftstating, I will take pain meds in the morning before PT. I will let you know when I want them. Pt up to chair x1 this shift. Pt refuses Senokot & iron. Viviana Kay R.N. - 08/15/2019 5:52 PM CST Problem: PAIN - ADULT Goal: PT VERBALIZES/DEMONSTRATES ADEQUATE COMFORT LEVEL OR BASELINE Outcome: Progressing Problem: KNOWLEDGE DEFICIT Goal: Patient/family/caregiver demonstrates understanding of disease process, treatment plan, medications, and discharge instructions Outcome: Progressing Problem: SAFETY ADULT Goal: Maintain a safe environment Outcome: Progressing Shift Goals: Clinical Goals for the Shift: pt will report adequate pain control Identify possible barriers to meeting goals/advancing plan of care: fracture/total hip End of Shift Summary: pt is somewhat resistant to taking pain meds at times. Does not like to rate pain on pain scale. IV pain meds have been d/c/, MD wanting pt on oral meds to transition home. Pt satin chair for a few hours after working with PT and OT today. Pt continues to refuse SCD and lovenox.Will continue to enc pain meds as needed. Viviana Kay R.N. - 08/15/2019 1:23 PM CST Pt continues to sit in chair, refused to wash up this morning. Pt declined wanting pain meds when offered. Pt has been on the phone for awhile, finally obtained vitals while pt on phone. Viviana Kay R.N. - 08/15/2019 8:00 AM CST Nurse went in room to see if pt wanted pain meds with breakfast. Pt states, I want that shot for pain soon. nurse checked orders and the pain med he is requesting is on the PACU order set. Will get orders changed to reflect active orders for post op pain management. Encouraged pt to try to take oralpain meds since the goal is to d/c to home and you can't go home on IV pain meds. Pt states, I don't give a rats ass, those oral pain meds don't work for me. pt also states, I'm not going home today, physical therapy says I'm not ready and if someone sends me home I will just fall. will continue to try to offer pain meds and get pt move with assistance. So far pt is refusing SCDs and Lovenox. Clara Joe R.N. - 08/15/2019 4:03 AM CST Shift Goals: Clinical Goals for the Shift: Pt.will verbalize adequate pain control. Identify possible barriers to meeting goals/advancing plan of care: None. End of Shift Summary: Pt. Receiving Tylenol & Oxycodone for adequate pain control. S INSTRUCTOR Desirae Veras R.N. - 08/14/2019 6:39 PM CST Problem: PAIN - ADULT Goal: PT VERBALIZES/DEMONSTRATES ADEQUATE COMFORT LEVEL OR BASELINE Outcome: Progressing Shift Goals: Clinical Goals for the Shift: Pt will have adequate pain control. Identify possible barriers to meeting goals/advancing plan of care: compliance. End of Shift Summary: Pain under control. Refused to be up in chair this evening. Repositioning encouraged per self and he refuses assistance. Ella Salas R.N. - 08/14/2019 5:18 AM CST Problem: PAIN - ADULT Goal: PT VERBALIZES/DEMONSTRATES ADEQUATE COMFORT LEVEL OR BASELINE Outcome: Progressing Problem: KNOWLEDGE DEFICIT Goal: Patient/family/caregiver demonstrates understanding of disease process, treatment plan, medications, and discharge instructions Outcome: Progressing Problem: INFECTION - ADULT Goal: Absence of infection during hospitalization Outcome: Progressing Problem: SKIN/TISSUE INTEGRITY Goal: Skin/Tissue integrity maintained or improved Outcome: Progressing Goal: Oral and Nasal mucous membranes remain intact Outcome: Progressing Problem: SAFETY ADULT Goal: Maintain a safe environment Outcome: Progressing Problem: DISCHARGE PLANNING Goal: Patient discharge needs identified Outcome: Progressing Problem: SAFETY ADULT - RISK FOR FALL AND OR FALL INJURY Goal: Patient remains free from fall/fall injury Outcome: Progressing Problem: POTENTIAL OR ACTUAL PRESSURE INJURY-ADULT Goal: Manage sensory Perception deficits to maintain and/or improve skin integrity Outcome: Progressing Goal: Maintain optimal skin moisture to ensure or improve skin integrity Outcome: Progressing Goal: Achieve optimal activity and/or mobility to maintain or improve skin integrity Outcome: Progressing Goal: Nutrient intake appropriate for improving, restoring or maintaining skin integrity Outcome: Progressing Goal: Minimize friction and/or shear to maintain or improve skin integrity Outcome: Progressing Problem: Compromised Skin Integrity Goal: Skin/Tissue integrity maintained or improved Outcome: Progressing Goal: Oral and Nasal mucous membranes remain intact Outcome: Progressing Goal: Incisions, wounds, or drain sites healing without S/S of infection Outcome: Progressing Problem: Incontinence and/or Moisture Goal: Skin integrity is maintained or improved Outcome: Progressing Shift Goals: Clinical Goals for the Shift: Patient will report adequate pain control this shift Identify possible barriers to meeting goals/advancing plan of care: None End of Shift Summary: Patient has not been out of bed yet. Patient pain being managed with PRN meds,rest, and reposition. Desirae Ramires R.N. - 08/13/2019 6:24 PM CST Shift Goals: Clinical Goals for the Shift: patient will remain free of falls and report adequate pain control Identify possible barriers to meeting goals/advancing plan of care: noncompliance End of Shift Summary: Pt first refused iv antibiotic until MD encouraged. Has been compliant with all other meds. Eating and drinking well. Voiding no issues. Ellen Cardenas - 08/13/2019 4:39 PM CST PAS completed and sent to [facility]. PAS [id number] Hanny Hart R.N. - 08/13/2019 10:24 AM CST Patient became very agitated with nurse after she called him sir at the beginning of shift. Patient requested that he has a new nurse. Power Sweeper Operator was notified and spoke to the patient regarding the issue. Nurse is limited to what the patient will let her do including assessments, medications and patient cares. Ella Salas R.N. - 08/13/2019 5:26 AM CST Problem: PAIN - ADULT Goal: PT VERBALIZES/DEMONSTRATES ADEQUATE COMFORT LEVEL OR BASELINE Outcome: Progressing Problem: KNOWLEDGE DEFICIT Goal: Patient/family/caregiver demonstrates understanding of disease process, treatment plan, medications, and discharge instructions Outcome: Progressing Problem: INFECTION - ADULT Goal: Absence of infection during hospitalization Outcome: Progressing Problem: SKIN/TISSUE INTEGRITY Goal: Skin/Tissue integrity maintained or improved Outcome: Progressing Goal: Oral and Nasal mucous membranes remain intact Outcome: Progressing Problem: SAFETY ADULT Goal: Maintain a safe environment Outcome: Progressing Problem: DISCHARGE PLANNING Goal: Patient discharge needs identified Outcome: Progressing Problem: SAFETY ADULT - RISK FOR FALL AND OR FALL INJURY Goal: Patient remains free from fall/fall injury Outcome: Progressing Problem: POTENTIAL OR ACTUAL PRESSURE INJURY-ADULT Goal: Manage sensory Perception deficits to maintain and/or improve skin integrity Outcome: Progressing Goal: Maintain optimal skin moisture to ensure or improve skin integrity Outcome: Progressing Goal: Achieve optimal activity and/or mobility to maintain or improve skin integrity Outcome: Progressing Goal: Nutrient intake appropriate for improving, restoring or maintaining skin integrity Outcome: Progressing Goal: Minimize friction and/or shear to maintain or improve skin integrity Outcome: Progressing Problem: Compromised Skin Integrity Goal: Skin/Tissue integrity maintained or improved Outcome: Progressing Goal: Oral and Nasal mucous membranes remain intact Outcome: Progressing Goal: Incisions, wounds, or drain sites healing without S/S of infection Outcome: Progressing Problem: Incontinence and/or Moisture Goal: Skin integrity is maintained or improved Outcome: Progressing Shift Goals: Clinical Goals for the Shift: Patient will remain free from falls and report adequate pain control this shift Identify possible barriers to meeting goals/advancing plan of care: None End of Shift Summary: Patient on bedrest. Patient denies need for pain meds. NPO since midnight Ellen Franco R.N. - 08/12/2019 6:18 PM CST Shift Goals: Patient to remain free from falls Identify possible barriers to meeting goals/advancing plan of care: none End of Shift Summary: Patient remained free of falls this shift. S INSTRUCTOR documented in this encounter OR Notes Op Note - John Norman M.D. - 08/13/2019 7:48 AM CST FULL OP NOTE Procedure(s) (LRB): OPEN REDUCTION INTERNAL FIXATION LEFT FEMUR (Left) Surgeon(s) and Role: * John Norman M.D. - Primary Bin Filler: Lesli Zuñiga L.P.N. Anesthesia Type Regional Pre-operative Diagnosis Fracture Hip Intertrochanteric Closed Initial Left (HCC) Post-operative Diagnosis Fracture Hip Intertrochanteric Closed Initial Left (HCC) Full Operative Note Details PROCEDURE(S) Open reduction, intramedullary fixation of left intertrochanteric femur fracture. SURGEON(S) John Norman M.D. TISSUE TECHNICIAN: None. ANESTHESIA TYPE Spinal anesthesia. PRE-OPERATIVE DIAGNOSIS Left intertrochanteric femur fracture. POST-OPERATIVE DIAGNOSIS Left intertrochanteric femur fracture. DESCRIPTION OF PROCEDURE The patient was brought to the operating room, placed on the operating table in the lateral position. Spinal anesthesia was smoothly induced and placed on the fracture table in appropriately padded andsecured. He was then placed in appropriate traction. Once that was completed the left hip was then prepped and draped in sterile fashion. Attention was brought to the lateral aspect of his hip. A longitudinal incision was made proximal to the greater trochanter. A guidepin for the TFNA was placed. Once that was completed, we then reamed over this and then placed a guidewire considering the fracture site. Once the guidewire was placed, we then placed our femoral nail in the appropriate position. Notably, the fracture did lose a bit of its reduction. We then pulled a bit more traction and then after getting the nail into the appropriate spot we then made our lateral incision for the lag screw. We used this incision then to grab a hook around the neck itself. We pulled the neck up into better reducti on. Once reduction was adequate a guidepin was then placed across the fracture site up into the femoral head. placed on both AP and lateral views, our screw was then placed with good purchase in the bone. Following this, our distal screw was placed. We then backed off on the traction, applied compression through the ovidio and then tightening the screw proximally. Once final fluoroscopic images were obtained we appeared to have good fixation and good overall alignment. The incision was then copiously irrigated. The guides were removed. The IT band was then closed using #1 Vicryl in an interrupted [id number] fashion, followed by copious irrigation. Subcutaneous tissue closed using 2-0 Vicryl. Theskin was then closed using chapis, followed by an [employer] dressing. The patient was removed fromthe fracture table and transferred to recovery in good condition. Needle and sponge counts correct. SPECIMENS None. ESTIMATED BLOOD LOSS 100 mL. INDICATIONS: Ed is a 59-year-old man, who fell sustaining an injury to his left hip. X-rays demonstrated intertrochanteric fracture. Discussed risks, benefits, alternatives of open reduction and internal fixation of this fracture with him. He understands and desires to proceed with surgery. Specimens None Drains Estimated Blood Loss 100 mL Implants Implant Name Type Inv. Item Serial No. Heater Operator Lot No. LRB No. Used NL FEM TFN RT 130D [id number] - SNA - [id number] Hardware e.g. pins/screws/rods NL FEM TFN RT 130D [id number] NA Depuy Synthes [id number] Left [address] 10.5X110 - SNA - [id number] Hardware e.g. pins/screws/rods SCRW TFN FEN ST 10.5X110 NA Depuy Synthes [id number] Left 1 SCRW [facility] TI T25 5X38 - [id number] Hardware e.g. pins/screws/rods SCRW [facility] T25 5X38 Depuy Synthes Left 1 Intra-op Medications Date/Time Order Dose Route Action Action by 08/13/2019 0901 ceFAZolin in NaCl 0.9 % IVPB 2 g (ANCEF) intravenous Anesthesia Volume Adjustment Kalia Luna 08/13/2019 0727 ceFAZolin in NaCl 0.9 % IVPB 2 g (ANCEF) 2 g intravenous Given Kalia Luna M.D. S INSTRUCTOR Brief Op Note - John Norman M.D. - 08/13/2019 7:48 AM CST BRIEF OP NOTE Procedure(s) (LRB): OPEN REDUCTION INTERNAL FIXATION LEFT FEMUR (Left) Surgeon(s) and Role: * John Norman M.D. - Primary Bin Filler: Lesli Zuñiga L.P.N. Anesthesia Type Regional Pre-operative Diagnosis Fracture Hip Intertrochanteric Closed Initial Left (HCC) Post-operative Diagnosis Fracture Hip Intertrochanteric Closed Initial Left (HCC) Brief Operative Note Details Specimens None Drains None Estimated Blood Loss None Implants Implant Name Type Inv. Item Serial No. Heater Operator Lot No. LRB No. Used NL FEM TFN RT 130D [id number] - SNA - [id number] Hardware e.g. pins/screws/rods NL FEM TFN RT 130D [id number] NA Depuy Synthes [id number] Left [address] 10.5X110 - SNA - [id number] Hardware e.g. pins/screws/rods SCRW TFN FEN ST 10.5X110 NA Depuy Synthes [id number] Left 1 SCRW [facility] [place] TI T25 5X38 - [id number] Hardware e.g. pins/screws/rods SCRW [facility] [place] TI T25 5X38 Depuy Synthes Left 1 John Norman M.D. S INSTRUCTOR documented in this encounter Miscellaneous Notes Hospital Course - Rahel Ashby M.D. - 08/13/2019 12:26 PM CST 59 y/o male who presented to the ED with left hip pain workup revealed nondisplaced left intertrochanteric trochanteric fracture. Patient also has anemia of chronic disease 08/13 s/p ORIF, trend hemoglobin. S INSTRUCTOR documented in this encounter Plan of Treatment Not on filedocumented as of this encounter Procedures Procedure Name Priority Date/Time Associated Diagnosis Comme nts ADULT OXYGEN Routine 08/15/2019 8:00 THERAPY AM CHESS INSTRUCTOR ADULT OXYGEN Routine 08/14/2019 8:01 THERAPY PM CHESS INSTRUCTOR ADULT OXYGEN Routine 08/14/2019 8:01 THERAPY AM CHESS INSTRUCTOR IRON AND TOT Routine 08/14/2019 6:00 Results for IRON-BINDING AM CHESS INSTRUCTOR this procedure CAPACITY, S/P are in the results section. HEMOGLOBIN, B Routine 08/14/2019 6:00 Results for AM CHESS INSTRUCTOR this procedure are in the results section. VITAMIN B12 Routine 08/14/2019 6:00 Results for ASSAY, S AM CHESS INSTRUCTOR this procedure are in the results section. ADULT OXYGEN Routine 08/13/2019 8:01 THERAPY PM CHESS INSTRUCTOR ADULT OXYGEN Routine 08/13/2019 9:13 THERAPY AM CHESS INSTRUCTOR ADULT OXYGEN Routine 08/13/2019 9:13 THERAPY AM CHESS INSTRUCTOR FL FLUORO LESS RAD - Routine 08/13/2019 8:43 Results f or THAN 1 HOUR (most inpatients AM CHESS INSTRUCTOR this proced ure and all are in the outpatients) results section. OPEN REDUCTION 08/13/2019 7:07 Fracture Hip INTERNAL AM CHESS INSTRUCTOR Intertrochanteric FIXATION FEMUR Closed Initial Left (HCC) CBC WITH Routine 08/13/2019 6:06 Results for DIFFERENTIAL, B AM CHESS INSTRUCTOR this procedu re are in the results section. GLUCOSE POCT, B Routine 08/13/2019 4:27 Results f or AM CHESS INSTRUCTOR this procedure are in the results section. HEMOGLOBIN A1C, Routine 08/12/2019 1:17 Results f or B PM CHESS INSTRUCTOR this procedure are in the results section. documented in this encounter Results (ABNORMAL) Vitamin B12 Assay (08/14/2019 6:00 AM CHESS INSTRUCTOR) Analysis Performed At Patho logist Time Signature Vitamin B12 >2000 (H) 232 - 1245 08/14/2019 ECLR Assay, S ng/L 3:11 PM CHESS INSTRUCTOR Comment: Biotin has been identified by the jyoti cabreraurer as a potential interfering substance. ??Higher concentr ations of biotin may be found in multivitamins, hair/nail supple ments, and workout supplements. ??If the result does not ma [facility] clinical observations, repeat testing after patient refrains fr om the use of supplements for at least 12 hours. Specimen Anatomical Collection Method Collection Time Receive d Time (Source) Location / / Volume Laterality Blood (Blood, 08/14/2019 6:00 AM 08/14/20 19 2:21 Venous) CHESS INSTRUCTOR PM CHESS INSTRUCTOR Ed L Dumont M.D. LAB BLOOD ADD-ON Performing Organization Address City/[facility]/ZIP Code Phon e Number [facility]- [address] [place] [address] [phone] [facility] [address] System in [address] (ABNORMAL) Iron and Total Iron-Binding Capacity (08/14/2019 6:00 AM CHESS INSTRUCTOR) P athologist Signature Iron 15 (L) 50 - 150 08/14/2019 [facility] mcg/dL 6:49 AM CHESS INSTRUCTOR Total Iron 260 250 - 400 08/14/2019 [facility] Binding mcg/dL 6:49 AM CHESS INSTRUCTOR Capacity Percent 6 (L) 14 - 50 % 08/14/2019 [facility] Saturation 6:49 AM CHESS INSTRUCTOR Specimen Anatomical Collection Method Collection Time Receive d Time (Source) Location / / Volume Laterality Blood (Blood, 08/14/2019 6:00 AM 08/14/20 19 6:20 Venous) CHESS INSTRUCTOR AM CHESS INSTRUCTOR Ed Violette Dumont M.D. LAB BLOOD ADD-ON Performing Organization Address City/State/ZIP Code Phon e Number [facility]- [address] [place], [place] [address] [facility] [place] [facility] [place] [address] System in [place] [address] (ABNORMAL) Hemoglobin (08/14/2019 6:00 AM CHESS INSTRUCTOR) P athologist Signature Hemoglobin 7.5 (L) 13.2 - 16.6 08/14/2019 [facility] g/dL 6:23 AM CHESS INSTRUCTOR Specimen Anatomical Collection Method Collection Time Receive d Time (Source) Location / / Volume Laterality Blood (Blood, 08/14/2019 6:00 AM 08/14/20 19 6:20 Venous) CHESS INSTRUCTOR AM CHESS INSTRUCTOR John Norman M.D. LAB BLOOD ADD-ON Performing Organization Address City/State/ZIP Code Phon e Number [facility]- [address] [place], [place] [address] [address] [facility] [place] [address] System in [place] [address] [place] Fluoro Less Than 1 Hour (08/13/2019 8:43 AM CHESS INSTRUCTOR) Specimen (Source) Anatomical Location Collection Method / Collectio n Time Received Time / Laterality Volume Narrative [address] - 08/13/2019 8:45 AM CHESS INSTRUCTOR This exam does not require a radiologist review or interpretation. Please refer to the patient's medical record on this date for clinical details. John Norman M.D. IMG FLUOROSCOPY PROCEDURES Performing Organization Address City/State/ZIP Code Phon e Number [address] (ABNORMAL) CBC with Differential (08/13/2019 6:06 AM CHESS INSTRUCTOR) [facility] gist Method Time Signature Hemoglobin 8.1 (L) 13.2 - 08/13/2019 [facility] 16.6 g/dL 6:32 AM CHESS INSTRUCTOR Hematocrit 28.0 (L) 38.3 - 08/13/2019 [facility] 48.6 % 6:32 AM CHESS INSTRUCTOR Erythrocytes 3.48 (L) 4.35 - 08/13/2019 [facility] 5.65 6:32 AM CHESS INSTRUCTOR x10(12)/L MCV 80.5 78.2 - 08/13/2019 [facility] 97.9 fL 6:32 AM CHESS INSTRUCTOR RBC Distrib Width 17.9 (H) 11.8 - 08/13/2019 [facility] 14.5 % 6:32 AM CHESS INSTRUCTOR Platelet Count 179 135 - 317 08/13/2019 [facility] x10(9)/L 6:32 AM CHESS INSTRUCTOR Leukocytes 6.7 3.4 - 9.6 08/13/2019 [facility] x10(9)/L 6:32 AM CHESS INSTRUCTOR Neutrophils 5.06 1.56 - 08/13/2019 [facility] 6.45 6:32 AM CHESS INSTRUCTOR x10(9)/L Lymphocytes 0.84 (L) 0.95 - 08/13/2019 [facility] 3.07 6:32 AM CHESS INSTRUCTOR x10(9)/L Monocytes 0.73 0.26 - 08/13/2019 [facility] 0.81 6:32 AM CHESS INSTRUCTOR x10(9)/L Eosinophils 0.06 0.03 - 08/13/2019 [facility] 0.48 6:32 AM CHESS INSTRUCTOR x10(9)/L Basophils 0.03 0.01 - 08/13/2019 [facility] 0.08 6:32 AM CHESS INSTRUCTOR x10(9)/L Specimen Anatomical Collection Method Collection Time Receive d Time (Source) Location / / Volume Laterality Blood (Blood, 08/13/2019 6:06 AM 08/13/20 19 6:28 Venous) CHESS INSTRUCTOR AM CHESS INSTRUCTOR Juliette Crenshawviolet PALACIO C.N.P., FidelNEricka LAB BLOOD ADD-ON Performing Organization Address City/State/ZIP Code Phon e Number [facility]- [address] [place], [place] [address] [place] [address] System in [place] [address] Glucose, POCT (08/13/2019 4:27 AM CHESS INSTRUCTOR) athologist Signature Glucose, POCT, 101 70 - 140 08/13/2019 [facility] B mg/dL 4:27 AM CHESS INSTRUCTOR Specimen Anatomical Collection Method Collection Time Receive d Time (Source) Location / / Volume Laterality Blood 08/13/2019 4:27 AM 9 4:34 CHESS INSTRUCTOR AM CHESS INSTRUCTOR Generic Rals LAB POCT ORDERABLES-MANUAL Performing Organization Address City/State/ZIP Code Phon e Number [facility]- [address] [place], [place] [address] [place] [address] System in [place] [address] (ABNORMAL) Hemoglobin A1c (08/12/2019 1:17 PM CHESS INSTRUCTOR) athologist Signature Hemoglobin A1c, 5.7 (H) 4.2 - 5.6 08/12/2019 [facility] B % 1:43 PM CHESS INSTRUCTOR Comment: Hemoglobin A1c values of 5.7-6.4 percent indicate an increased risk for developing diabetes m roberto carlos. In diabetic patients, HbA1c goals should be discussed with healthcare provider. Specimen Anatomical Collection Method Collection Time Receive d Time (Source) Location / / Volume Laterality Blood (Blood, 08/12/2019 1:17 PM 08/12/20 19 1:28 Venous) CHESS INSTRUCTOR PM CHESS INSTRUCTOR John Norman M.D. LAB BLOOD ADD-ON Performing Organization Address City/State/ZIP Code Phon e Number [facility]- [address] [place], [place] [address] [place] [address] System in [place] [facility] Good documented in this encounter Visit Diagnoses Diagnosis Fracture Hip Intertrochanteric Closed In itial Left (HCC) - Primary Pain Joint Fracture Hip Closed Initial Left (HCC) Diabetes Mellitus Type 2 (HCC) Benign Prostatic Hyperplasia Without Obs truction History Of Falling Anemia Microcytic Diarrhea Impaired Glucose Tolerance Osteoporosis documented in this encounter Admitting Diagnoses Diagnosis Fracture Hip Intertrochanteric Closed In itial Left (HCC) Fracture Hip Closed Initial Left (HCC) documented in this encounter Administered Medications Inactive Administered Medications - up to 3 most recent administrations Medication Order MAR Action Action Date Dose Rate Site acetaminophen tablet 1,000 mg Given 08/16/2019 9:00 AM CHESS INSTRUCTOR 1,000 mg (TYLENOL) 1,000 mg, oral, 3 times daily PRN, mild pain or score 1-3 of 10, headaches, fever, Starting on Thu08/12/19 at 1403 Given 08/15/2019 6:32 PM CHESS INSTRUCTOR 1,000 mg Given 08/15/2019 8:46 AM CHESS INSTRUCTOR 1,000 mg allopurinol tablet 300 mg (ZYLOPRIM) Given 08/15/2019 6:30 AM CHESS INSTRUCTOR 300 mg 300 mg, oral, Daily, First dose on Thu08/13/19 at 0900 Given 08/14/2019 6:35 AM CHESS INSTRUCTOR 300 mg allopurinol tablet 300 mg (ZYLOPRIM) Given 08/16/2019 6:22 AM CHESS INSTRUCTOR 300 mg 300 mg, oral, Daily at bedtime, First dose (after last modification) on Thu08/16/19 at 0630 calcium carbonate chewable tablet Given 08/16/2019 6:0 9 AM CHESS INSTRUCTOR 400 mg of calcium 400 mg of calcium (TUMS) 400 mg of calcium, oral, 2 times daily, First dose on Thu08/12/19 at 2100, Doses listed are in mg of elemental calcium. Take with food. 500 mg calcium carbonate contains 200 mg of elemental calcium. Given 08/15/2019 6:32 AM CHESS INSTRUCTOR 400 mg of calcium Given 08/14/2019 5:25 PM CHESS INSTRUCTOR 400 mg of calcium calcium carbonate chewable tablet Given 08/15/2019 5:4 3 PM CHESS INSTRUCTOR 400 mg of calcium 400 mg of calcium (TUMS) 400 mg of calcium, oral, Every 2 hour PRN, heartburn, indigestion, Starting on Thu08/12/19 at 1413, Doses listed are in mg of elemental calcium. Take with food. 500 mg calcium carbonate contains 200 mg of elemental calcium. Given 08/13/2019 5:35 PM CHESS INSTRUCTOR 400 mg of calcium ceFAZolin in NaCl 0.9 % IVPB 2 g New Bag 08/13/2019 11:59 PM CHESS INSTRUCTOR 2 g 220 mL/hr (ANCEF) 2 g, intravenous, at 220 mL/hr, Administer over 30 Minutes, Every 8 hours, First dose on 08/13/19 at 1530, For 2 doses, Start within 8 hours of last IV dose. premix bag, Drug Monitoring Program: Pharmacist to adjust medication dosing based on indication and drug clearance factors., Indications: Prophylaxis, surgical New Bag 08/13/2019 4:07 PM CHESS INSTRUCTOR 2 g 220 mL/hr ferrous sulfate tablet 65 mg of iron 65 mg of iron, oral, Daily, First dose o n 08/14/19 at 1315, 325 mg contains 65 mg of elemental iron. furosemide tablet 40 mg (LASIX) Given 08/15/2019 5:43 PM CHESS INSTRUCTOR 40 mg 40 mg, oral, Daily before dinner, First dose on Thu08/12/19 at 1600 Given 08/14/2019 5:25 PM CHESS INSTRUCTOR 40 mg Given 08/13/2019 5:33 PM CHESS INSTRUCTOR 40 mg HYDROmorphone injection 0.5 mg (DILAUDID ) Given 08/14/2019 8:17 PM CHESS INSTRUCTOR 0.5 mg 0.5 mg, intravenous, Every 5 min PRN, moderate pain or score 4-6 of 10, severe pain or score 7-10 of 10, Starting on 08/13/19 at 0912, For 4 doses, PACU (only), Up to maximum total dose of 2 mg Given 08/14/2019 9:03 AM CHESS INSTRUCTOR 0.5 mg HYDROmorphone injection 0.5 mg (DILAUDID ) Given 08/13/2019 8:06 PM CHESS INSTRUCTOR 0.5 mg 0.5 mg, intravenous, Every 2 hour PRN, severe pain or score 7-10 of 10, Starting on 08/13/19 at 0942, For 2 doses, May administer if pain is greater than 7 after scheduled and PRN regimen exhausted. If pain remains greater than 7, notify primary service. Given 08/13/2019 1:31 PM CHESS INSTRUCTOR 0.5 mg morphine injection 2 mg Given 08/15/2019 8:45 AM CHESS INSTRUCTOR 2 mg 2 mg, intravenous, Every 2 hour PRN, severe pain or score 7-10 of 10, breakthrough pain, Starting on 08/12/19 at 1413, For breakthrough pain unrelieved 30 minutes after PRN oral pain medication is used or if unable to take oral pain medication. NaCl 0.9% infusion Restarted 08/13/2019 9:28 AM CHESS INSTRUCTOR 100 mL/hr 100 mL/hr 100 mL/hr, intravenous, Continuous, Starting on 08/13/19 at 0000 New Bag 08/12/2019 11:47 PM CHESS INSTRUCTOR 100 mL/hr 100 mL/hr NaCl 0.9% infusion Rate/Dose Verify 08/14/2019 12:09 AM CHESS INSTRUCTOR 50 mL/hr 50 mL/hr 50 mL/hr, intravenous, Continuous, Starting on 08/13/19 at 0945 New Bag 08/13/2019 8:05 PM CHESS INSTRUCTOR 50 mL/hr 50 mL/hr Continued from OR 08/13/2019 10:09 AM CHESS INSTRUCTOR 50 mL/hr 50 mL/hr oxyCODONE IR tablet 10 mg (ROXICODONE) Given 08/16/2019 9:00 AM CHESS INSTRUCTOR 10 mg 10 mg, oral, Every 4 hours PRN, severe pain or score 7-10 of 10, Starting on 08/13/19 at 0942, Second line therapy. If patient is greater than 7 after 2 hours, call service for new order. Given 08/15/2019 6:32 PM CHESS INSTRUCTOR 10 mg Given 08/15/2019 1:31 PM CHESS INSTRUCTOR 10 mg oxyCODONE IR tablet 5 mg (ROXICODONE) 5 mg, oral, Every 4 hours PRN, moderate pain or score 4-6 of 10, Starting on 08/13/19 at 0942, Second line therapy pantoprazole DR tablet 40 mg (PROTONIX) Given 08/16/2019 6:09 AM CHESS INSTRUCTOR 40 mg 40 mg, oral, Daily before breakfast, First dose on 08/13/19 at 0700, pantoprazole 40 mg oral daily was interchanged for omeprazole 20 or 40 mg oral daily Swallow whole. Do NOT crush, chew, or split tablet. Given 08/15/2019 6:30 AM CHESS INSTRUCTOR 40 mg Given 08/14/2019 6:36 AM CHESS INSTRUCTOR 40 mg pediatric qomyngkgaqvt-wdlr-gfozqicw Given 08/14/2019 9:02 AM CS T 2 tablets chewable tablet 2 tablet (FLINTSTONES COMPLETE) 2 tablet, oral, Daily, First dose on 08/13/19 at 0900 pediatric akfpujhxkkrb-uckm-ncatijit Given 08/14/2019 11:[address] 2 tablets chewable tablet 2 tablet (FLINTSTONES COMPLETE) 2 tablet, oral, Once, On 08/14/19 at 1145, For 1 dose, For total AM dose of 4 tablets pediatric fxjkyohviimb-udvo-mumifmfa Given 08/16/2019 6:09 AM CS T 4 tablets chewable tablet 4 tablet (FLINTSTONES COMPLETE) 4 tablet, oral, Daily, First dose (after last modification) on 08/15/19 at 0630 Given 08/15/2019 6:32 AM CHESS INSTRUCTOR 4 tablets sodium chloride 0.9 % injection 10 mL Given 08/15/2019 8:46 AM CHESS INSTRUCTOR 10 mL 10 mL, intravenous, As needed, line care, Starting on Thu08/12/19 at 1410, Peripheral Intravenous Catheter and Rapid Infusion Catheter, prior to blood sampling, post blood transfusion or post blood sampling sodium chloride 0.9 % injection 3 mL Given 08/15/2019 10:09 PM CHESS INSTRUCTOR 3 mL 3 mL, intravenous, Every 12 hours scheduled, First dose on Thu08/12/19 at 2100, Peripheral Intravenous Catheter and Rapid Infusion Catheter, when no infusion to maintain patency Given 08/14/2019 8:18 PM CHESS INSTRUCTOR 3 mL Given 08/12/2019 11:47 PM CHESS INSTRUCTOR 3 mL tamsulosin 24 hr capsule 0.4 mg (FLOMAX) Given 08/15/2019 5:43 PM CHESS INSTRUCTOR 0.4 mg 0.4 mg, oral, Daily, First dose on 08/13/19 at 0900, Swallow whole. Do NOT crush, chew or open capsule. Given 08/14/2019 9:02 AM CHESS INSTRUCTOR 0.4 mg tamsulosin 24 hr capsule 0.4 mg (FLOMAX) 0.4 mg, oral, Daily at bedtime, First dose (after last modification) on Tu08/16/19 at 2100, Swallow whole. Do NOT crush, chew or open capsule. traMADol tablet 100 mg (ULTRAM) 100 mg, oral, Every 6 hours PRN, severe pain or score 7-10 of 10, Starting on Thu08/12/19 at 1736 traMADol tablet 50 mg (ULTRAM) 50 mg, oral, Every 6 hours PRN, moderate pain or score 4-6 of 10, Starting on Thu08/12/19 at 1736 documented in this encounter Active and Recently Administered Medications Times are shown in CHESS INSTRUCTOR. Scheduled Medication Order 08/14/2019 08/15/2019 08/16/2019 allopurinol tablet 300 mg (ZYLOPRIM) (CANCELED) 0635 ( Given - Provider: Ella Milan R.N.) 0630 (Given - Provider: Clara Lr R.N.) 300 mg, oral, Daily, First dose on Thu08/13/19 at 0900 allopurinol tablet 300 mg (ZYLOPRIM) 0622 (Given - Provider: Denise Layne R.N.) 300 mg, oral, Daily at bedtime, First do se (after last modification) on Thu08/16/19 at 0630 calcium carbonate chewable tablet 400 mg of calcium (T UMS) 0636 (Given - Provider: Ella Milan R.N.)1725 (Given - Provider: Desirae Veras R.N.) 0632 (Given - Provider: Clara Lr R.N.)2022 (Not Given - Provider: Denise Layne R.N. - Reason: Patient/family refused) 0609 (Given - Provider: Denise Layne R.N.) 400 mg of calcium, oral, 2 times daily, First dose on Thu08/12/19 at 2100, Doses listed are in mg of elemental calcium. Take with food. 500 mg calcium carbonate contains 200 mg of elemental calcium. enoxaparin injection 40 mg (LOVENOX) 0903 (Not Given - Provider: Desirae Veras R.N. - Reason: Patient/family refused) 0906 (Not Given - Provider: Viviana Acosta R.N. - Reason: Patient/family refused) 0813 (Not Given - Provider: Anika Sprague R.N. - Reason: Patient/family refused) 40 mg, subcutaneous, Daily, First dose on 08/14/19 at 0900 ferrous sulfate tablet 65 mg of iron 1555 (Not Given - Provider: Desirae Veras R.N. - Reason: Patient/family refused) 0603 (Not Given - Provider: Clara Lr R.N. - Reason: Patient/family refused) 0602 (Not Given - Provider: Denise Layne R.N. - Reason: Patient/family refused) 65 mg of iron, oral, Daily, First dose o n 08/14/19 at 1315, 325 mg contains 65 mg of elemental iron. furosemide tablet 40 mg (LASIX) 1725 (Given - Provider : Desirae Veras R.N.) 1743 (Given - Provider: Viviana Acosta R.N.) 40 mg, oral, Daily before dinner, First dose on Thu08/12/19 at [address] tablet 40 mg (PROTONIX) 0636 (Given - Provider: Ella Milan R.N.) 0630 (Given - Provider: Clara Lr R.N.) 0609 (Gi cora - Provider: Denise Layne R.N.) 40 mg, oral, Daily before breakfast, Fir st dose on 08/13/19 at 0700, pantoprazole 40 mg oral daily was interchanged for omeprazole 20 or 40 mg oral daily Swallow whole. Do NOT crush, chew, or split tablet. pediatric mwblbbfvlqnx-yurs-mwkpgjcm shaina wable tablet 2 tablet (FLINTSTONES COMPLETE) (CANCELED) 0902 (Given - Provider: Desirae Veras R.N.) 2 tablet, oral, Daily, First dose on 08/13/19 at 0900 pediatric whlvaceenkdq-qquv-tmyyylzs shaina wable tablet 2 tablet (FLINTSTONES COMPLETE) (COMPLETED) 1144 (Given - Provider: Desirae Veras R.N.) 2 tablet, oral, Once, On 08/14/19 at 1145, For 1 dose, For total AM dose of 4 tablets pediatric cguvchslnqps-xtku-gfojqabr shaina wable tablet 4 tablet (FLINTSTONES COMPLETE) 0632 (Given - Provider: Clara Lr R.N.) 0609 (Given - Provider: Denise Layne RAugustine) 4 tablet, oral, Daily, First dose (after last modification) on 08/15/19 at 0630 sennosides-docusate sodium 8.6-50 mg per tablet 1 tabl et (SENOKOT-S) 09 (Not Given - Provider: Desirae Veras R.N. - Reason: Patient/family refused)2019 (Not Given - Provider: Ella Milan R.N. - Reason: Patient/family refused) 06 (Not Given - Provider: Clara Lr R.N. - Reason: Patient/family refused)2056 (Not Given - Provider: Denise Layne R.N. - Reason: Patient/family refused) 06 (Not Given - Provider: Denise zacarias R.N. - Reason: Patient/family refused) 1 tablet, oral, 2 times daily, First dos e on Thu08/13/19 at 2100, Do not give if patient has diarrhea. sodium chloride 0.9 % injection 3 mL 09 (Not Given - Provider: Desirae Veras RAugustine - Reason: Order parameters not met)2017 (Given - Provider: Ella Milan R.N.) 09 (Not Given - Provider: Viviana Acosta R.N. - Reason: Other - Comment: see 10ml flush in PRN)2208 (Given - Provider: Denise Layne RAugustine) 0814 (Not Given - Provider: Anika moore RPiliNPili - Reason: Patient/family refused) 3 mL, intravenous, Every 12 hours schedu led, First dose on Thu08/12/19 at 2100, Peripheral Intravenous Catheter and Rapid Infusion Catheter, when no infusion to maintain patency tamsulosin 24 hr capsule 0.4 mg (FLOMAX) (CANCELED) 09 02 (Given - Provider: Desirae Veras R.N.) 1743 (Given - Provider: Fany Lopez - Comment: pt request, this is when he takes at home)1800 (Canceled Entry - Provider: Viviana Acosta R.N.) 0.4 mg, oral, Daily, First dose on Sat 1 10/14/18 at 0900, Swallow whole. Do NOT crush, chew or open capsule. tamsulosin 24 hr capsule 0.4 mg (FLOMAX) 0.4 mg, oral, Daily at bedtime, First do se (after last modification) on Thu08/16/19 at 2100, Swallow whole. Do NOT crush, chew or open capsule. Continuous Medication Order 08/14/2019 08/15/2019 08/16/2019 NaCl 0.9% infusion (CANCELED) 0009 (Rate/Dose Verify - Provider: Ella Milan R.N.)1300 (Stopped - Provider: Desirae Veras R.N.) 50 mL/hr, intravenous, Continuous, Starting on 08/13/19 at 09 45 PRN Medication Order 08/14/2019 08/15/2019 08/16/2019 acetaminophen tablet 1,000 mg (TYLENOL) 0902 (Given - Provider: Desirae Veras R.N.)2017 (Given - Provider: Ella Milan R.N.) 0846 (Given - Provider: Viviana Acosta R.N.)1832 (Given - Provider: Viviana Acosta R.N.) 0900 (Given - Provider: Anika Sprague R.N. - Comment: pt refuses to use a pain scale) 1,000 mg, oral, 3 times daily PRN, mild pain or score 1-3 of 10, headaches, fever, Starting on Thu08/12/19 at 1403 bisacodyl suppository 10 mg (DULCOLAX) 10 mg, rectal, Daily PRN, constipation, Starting 08/13/19 at 0942, Ordered sequence of administration: polyethylene glycol, then bisacodyl until BM achieved. calcium carbonate chewable tablet 400 mg of calcium (TUMS) 1743 (Given - Provider: Viviana Acosta R.N.) 400 mg of calcium, oral, Every 2 hour [place] N, heartburn, indigestion, Starting on Thu08/12/19 at 1413, Doses listed are in mg of elemental calcium. Take with food. 500 mg calcium carbonate contains 200 mg of elemental calcium. dexamethasone injection 4 mg (DECADRON) 4 mg, intravenous, Once as needed, nause a, vomiting, Starting 08/13/19 at 0942, For 1 dose, Give only if NOT given during the pre or intraoperative period. If ondansetron ordered, give dexamethasone with first dose of ondansetron. HYDROmorphone injection 0.5 mg (DILAUDID) (CANCELED) 0 903 (Given - Provider: Desirae Veras R.NPili)2016 (Given - Provider: Ella Milan RPiliNPili) 0.5 mg, intravenous, Every 5 min PRN, mo derate pain or score 4-6 of 10, severe pain or score 7-10 of 10, Starting on 08/13/19 at 0912, For 4 doses, PACU (only), Up to maximum total dose of 2 mg ipratropium-albuterol 0.5-2.5 mg/3 mL nebulizer solution 3 mL (D UO-NEB) 3 mL, nebulization, Every 6 hours PRN, w heezing, shortness of breath, Starting Thu08/12/19 at 1412 loperamide capsule 2 mg (IMODIUM A-D) 2 mg, oral, 4 times daily PRN, diarrhea, Starting Thu08/12/19 at 1405, loperamide (IMODIUM A-D) orderable was interchanged for the loperamide (IMODIUM A-D) tablet/capsule morphine injection 2 mg 0845 (Given - Provider: Viviana Acosta RAugustine) 2 mg, intravenous, Every 2 hour PRN, sev ere pain or score 7-10 of 10, breakthrough pain, Starting on Thu08/12/19 at 1413, For breakthrough pain unrelieved 30 minutes after PRN oral pain medication is used or if unable to take oral pain medication. naloxone injection 0.1 mg (NARCAN) 0.1 mg, intravenous, Every 5 min PRN, re versal, respiratory depression, For respiratory rate less than 8 breaths/min and if difficult to arouse, Starting Thu08/12/19 at 1413, For 3 doses naloxone injection 0.2 mg (NARCAN) 0.2 mg, intravenous, As needed, respirat ory depression, Starting 08/13/19 at 0942, For respiratory rate less than 8 breaths per minute or RASS score of -3, - 4, -5. Apply oxygen to keep oxygen saturations greater than 90% and notify service. ondansetron (PF) injection 4 mg (ZOFRAN) 4 mg, intravenous, Every 6 hours PRN, na usea, vomiting, Starting 08/12/19 at 1413 oxyCODONE IR tablet 10 mg (ROXICODONE)(Linked Group 1) 901 (Given - Provider: Desirae Veras R.N.)2016 (Given - Provider: Ella Milan R.N.) 0846 (Given - Provider: Viviana Acosta R.N.)133 (Given - Provider: Viviana Acosta R.N.)1832 (Given - Provider: Viviana Acosta R.N.) 0900 (Given - Provider: Anika Sprague R.N. - Comment: pt refuses to use a pain scale) 10 mg, oral, Every 4 hours PRN, severe p ain or score 7-10 of 10, Starting on 08/13/19 at 0942, Second line therapy. If patient is greater than 7 after 2 hours, call service for new order. oxyCODONE IR tablet 5 mg (ROXICODONE)(Linked Group 1) 901 (See Alternative - Provider: Desirae Veras R.N.)2016 (See Alternative - Provider: Ella Milan R.N.) 0846 (See Alternative - Provider: Viviana Acosta R.N.)133 (See Alternative - Provider: Viviana Acosta R.N.)1832 (See Alternative - Provider: Viviana Acosta R.N.) 0900 (See Alternative - Provider: Romana Sprague R.NPili) 5 mg, oral, Every 4 hours PRN, moderate pain or score 4-6 of 10, Starting on 08/13/19 at 0942, Second line therapy polyethylene glycol powder packet 1 packet (MIRALAX) 1 packet, oral, Daily PRN, constipation, Starting 08/12/19 at 1413, Ordered sequence of administration: polyethylene glycol, then bisacodyl until BM achieved. Avoid mixing with starch-based thickened liquids. sennosides-docusate sodium 8.6-50 mg per tablet 1 tablet (SENOKO T-S) 1 tablet, oral, 2 times daily PRN, const ipation, Starting Thu08/12/19 at 1414, Do not give if patient has diarrhea. sodium chloride 0.9 % injection 10 mL 08 46 (Given - Provider: Viviana Acosta R.N.) 10 mL, intravenous, As needed, line care , Starting on Thu08/12/19 at 1410, Peripheral Intravenous Catheter and Rapid Infusion Catheter, prior to blood sampling, post blood transfusion or post blood sampling sodium chloride 0.9 % injection 3 mL 3 mL, intravenous, As needed, line care, Starting Thu08/12/19 at 1410, Prior to and following infusion and between multiple consecutive infusions: sodium chloride 0.9 % injection traMADol tablet 100 mg (ULTRAM)(Linked Group 2) 100 mg, oral, Every 6 hours PRN, severe pain or score 7-10 of 10, Starting on Thu08/12/19 at 1736 traMADol tablet 50 mg (ULTRAM)(Linked Group 2) 50 mg, oral, Every 6 hours PRN, moderate pain or score 4-6 of 10, Starting on Thu08/12/19 at 1736 Linked Groups Order Group 1: oxyCODONE IR tablet 5 mg (ROXICODONE)Jump to med 5 mg, oral, Every 4 hours PRN, moderate pain or score 4-6 of 10, Starting on 08/13/19 at 0942
Second line therapy
Or oxyCODONE IR tablet 10 mg (ROXICODONE)Jump to med 10 mg, oral, Every 4 hours PRN, severe p ain or score 7-10 of 10, Starting on 08/13/19 at 0942
Second line therapy. If patient is greater than 7 after 2 hours, call service for new order.
Group 2: traMADol tablet 50 mg (ULTRAM)Jump to med 50 mg, oral, Every 6 hours PRN, moderate pain or score 4-6 of 10, Starting on Thu08/12/19 at 1736 Or traMADol tablet 100 mg (ULTRAM)Jump to med 100 mg, oral, Every 6 hours PRN, severe pain or score 7-10 of 10, Starting on Thu08/12/19 at 1736 documented in this encounter Additional Health Concerns Assessment Noted Time PHQ-9 Depression Total Score: 18 02/14/2013 9:53 AM CD T documented as of this encounter Care Teams Biofuels Research Scientist Relationship Specialty Start Date End Date Cintia Cobb M.D. PCP - General 02/19/17 02/20/[address] [place] [phone] documented as of this encounter
--- OUTSIDE RECORDS SUMMARY | 2022-07-29 10:47 | XMS_ITS | Encounter Summary ---
:1960 Author Organization [facility] Address [address] [place] [address] Care Team Providers Name Role Phone Cintia Cobb M.D. Primary Care Provider [phone] Reason for Visit Physical Therapy (Routine) - Canceled Specialty Diagnoses / Procedures Referred By Contact Refer red To Contact Diagnoses Follow Up Examination Postoperative Visit Fracture Hip Intertrochanteric Closed Initial Left (HCC) Kacie Huerta APRN, [facility] Procedures PT Ongoing treatment C.N.P., D.N.P. [address] [place] [address] Referral ID Status Reason Start Date Expiration Date Visits V isits Requested Authorized [id number] Canceled 10/13/2019 10/12/2020 99 99 Encounter Details Date Type Department Care Team Description 11/03/2019 Clinical Department of Kacie Huerta APRN, C.N.P., D.N.P. [address] [place] [phone] Follow Up Examination Postoperative Visi t; Support Rehabilitation Lesli Dias P.TPili [address] [place] [phone] Fracture Hip Intertrochanteric Closed In itial Left (HCC) Services in [address] [place] [address] Social History Tobacco Use Types Packs/Day Years Used Date Smoking Tobacco: Never Smokeless Tobacco: Never Alcohol Use Standard Drinks/Week Comments No 0 (1 standard drink = 0.6 oz pure alcoho l) Sex Assigned at Date Recorded Not on file documented as of this encounter Progress Notes Lesli Dias P.T. - 11/03/2019 4:00 PM CST Physical Therapy Outpatient Treatment Note SUBJECTIVE Patient's Name: Laz Cuauhtemoc Luna Referring Provider: Kacie Huerta APRN, C.* Visit Diagnosis: 1. Follow Up Examination Postoperative Visit 2. Fracture Hip Intertrochanteric Closed Initial Left (HCC) Reason for Referral: PT eval and treat Onset Date: 08/12/19 Payor: [facility] / Plan: [facility] BLUE AC [employer] SA HMO / Product Type: Medicaid HMO / No data recorded Epic Visit Count: 7 Patient comments: patient reports he is continuing to [facility] routinely. He is progressing nicely with mobility and strength. OBJECTIVE Pain: Controlled. Patient continues to ambulate with use of straight cane which is recommended at this time to reduce fall risk due to weakness and decreased balance. TREATMENT Treatment today consisted of: Performed the Girly Stuff-Fit total body ergometer x 8 minutes level 4 resistance. Forward and lateral step ups on a 6 inch step. Standing squats x 20 reps. Standing squats times 20 repetitions. Marching with intermittent upper extremity support. Difficulty stabilizing on his left leg to lift the right. Seated hip abduction with manual resistance x 20 reps. Sidestepping in the parallel bars with intermittentupper extremity support, glut medius weakness noted. Narrowed base of support for balance training 2x 30 seconds. Home Exercise Program/Education: Patient will continue current home exercise program. Pt reports good compliance with his HEP. Assessment Clinical Impression: Tolerated treatment session well. Patient is progressing with strength. Patientwill continue to benefit from skilled physical therapy for progression of strengthening, gait and balance in order to return to previous level of function and return to work. Functional Goals and Timeframes: [...] 12/08/19 Plan Plan for next session: Continue progression of strengthening and balance training. Time Spent with Patient Gait Training (min): 5 min Therapeutic Exercise (min): 22 min Time Calculation Total Timed Units (min): 27 min Total Treatment Time (min): 27 min Lesli Dias P.T. Department of Rehabilitation Services in [address] [address] Dept: [phone] NE CONSULTANT documented in this encounter Plan of Treatment Not on filedocumented as of this encounter Visit Diagnoses Diagnosis Follow Up Examination Postoperative Visi t Fracture Hip Intertrochanteric Closed In itial Left (HCC) documented in this encounter Additional Health Concerns Assessment Noted Time PHQ-9 Depression Total Score: 18 02/14/2013 9:53 AM CD T documented as of this encounter Care Teams Application Analyst Relationship Specialty Start Date End Date Cintia Cobb M.D. PCP - General 02/19/17 02/20/[address] [place] [phone] documented as of this encounter
--- OUTSIDE RECORDS SUMMARY | 2022-07-29 10:47 | XMS_ITS | Encounter Summary ---
:1960 Author Organization [facility] Address [address] [place] [address] Care Team Providers Name Role Phone Cintia Cobb M.D. Primary Care Provider [phone] Encounter Details Date Type Department Care Team Description 09/12/2019 Orders Only Department of [facility] Angélica Cobb Medicine, Jose Daniel Piper M.D. Clinic, in [address] [address] [place], [place] [phone] (W ork) [phone] [phone] Social History Tobacco Use Types Packs/Day Years [...] documented as of this encounter Care Teams Bevel Polisher Relationship Specialty Start Date End Date Cintia Cobb M.D. PCP - General 02/19/17 02/20/[address] [place] [phone] documented as of this encounter
--- OUTSIDE RECORDS SUMMARY | 2022-07-29 10:47 | XMS_ITS | Encounter Summary ---
:1960 Author Organization [facility] Address [address] [place] [address] Care Team Providers Name Role Phone Cintia oCbb M.D. Primary Care Provider [phone] Encounter Details Date Type Department Care Team Description 10/14/2019 Orders Only Department of Mitzi Williamson I., Wound Toe Without Infusion Therapy in R.N. Damage To Nail Open [address] Subsequent (Primary [place], [place] Dx) [address] [address] [place] [phone] Social History Tobacco Use Types Packs/Day Years Used Date Smoking Tobacco: Never Smokeless Tobacco: Never Alcohol Use Standard Drinks/Week Comments No 0 (1 standard drink = 0.6 oz pure alcoho l) Sex Assigned at Date Recorded Not on file documented as of this encounter Plan of Treatment Not on filedocumented as of this encounter Visit Diagnoses Diagnosis Wound Toe Without Damage To Nail Open Kiran bsequent - Primary documented in this encounter Additional Health Concerns Assessment Noted Time PHQ-9 Depression Total Score: 18 02/14/2013 9:53 AM CD T documented as of this encounter Care Teams Community Relations Coordinator Relationship Specialty Start Date End Date Cintia Cobb M.D. PCP - General 02/19/17 02/20/[address] [place], [place] [address] [phone] documented as of this encounter
--- OUTSIDE RECORDS SUMMARY | 2022-07-29 10:47 | XMS_ITS | Encounter Summary ---
:1960 Author Organization [facility] Address [address] [place] [address] Care Team Providers Name Role Phone Cintia Cobb M.D. Primary Care Provider [phone] Reason for Visit Reason Comments Med Refill Encounter Details Date Type Department Care Team Description 09/20/2019 Refill Department of [facility] Angélica Cobb Med Refill Medicine, Jose Daniel Piper M.D. [facility], in [address] [address] [place], [place] [address] [phone] Social History Tobacco Use Types Packs/Day Years [...] documented as of this encounter Care Teams Dude Wrangler Relationship Specialty Start Date End Date Cintia Cobb M.D. PCP - General 02/19/17 02/20/[address] [place] [phone] documented as of this encounter
--- OUTSIDE RECORDS SUMMARY | 2022-07-29 10:47 | XMS_ITS | Encounter Summary ---
:1960 Author Organization [facility] Address [address] [place] [address] Care Team Providers Name Role Phone Cintia Cobb M.D. Primary Care Provider [phone] Reason for Visit Reason Onset Date Comments Coding 09/15/2019 Encounter Details Date Type Department Care Team Description 09/15/2019 Clinical Communication Department of [facility] Yady donahue, [facility] Medicine, Jose Daniel Piper M.D. [facility], [address] [address] [place], [place] [phone] (Work) [phone] Social History Tobacco Use Types Packs/Day Years Used Date Smoking Tobacco: Never Smokeless Tobacco: Never Alcohol Use Standard Drinks/Week Comments No 0 (1 standard drink = 0.6 oz pure alcoho l) Sex Assigned at Date Recorded Not on file documented as of this encounter Miscellaneous Notes Telephone Encounter - Jena Martell, RPiliN. - 09/15/2019 3:50 PM CST [facility] updated on ICD 10 code for patients Mepilex script. MASTER Telephone Encounter - Eli Enrique - 09/15/2019 3:11 PM CST Tiffany is needing the ICD 10 code for billing on the Mepilex that was prescribed for Ed on 09-12-2019. Please call pharmacy with information, Thanks MASTER documented in this encounter Plan of Treatment Not on filedocumented as of this encounter Visit Diagnoses Diagnosis Fracture Hip Closed Initial Left (HCC) - Primary documented in this encounter Additional Health Concerns Assessment Noted Time PHQ-9 Depression Total Score: 18 02/14/2013 9:53 AM CD T documented as of this encounter Care Teams Volunteer Services Assistant Relationship Specialty Start Date End Date Cintia Cobb M.D. PCP - General 02/19/17 02/20/[address] [place] [phone] documented as of this encounter
--- OUTSIDE RECORDS SUMMARY | 2022-07-29 10:47 | XMS_ITS | Encounter Summary ---
:1960 Author Organization [facility] Address [address] [place] [address] Care Team Providers Name Role Phone Cintia Cobb M.D. Primary Care Provider [phone] Reason for Visit Physical Therapy (Routine) - Canceled Specialty Diagnoses / Procedures Referred By Contact Refer red To Contact Diagnoses Follow Up Examination Postoperative Visit Fracture Hip Intertrochanteric Closed Initial Left (HCC) Kacie Huerta APRN, [facility] Procedures PT Ongoing treatment C.N.P., D.N.P. [address] [place] [address] Referral ID Status Reason Start Date Expiration Date Visits V isits Requested Authorized [id number] Canceled 10/13/2019 10/12/2020 99 99 Encounter Details Date Type Department Care Team Description 11/01/2019 Clinical Department of Kacie Huerta APRN, C.N.P., D.N.P. [address] [place] [phone] Follow Up Examination Postoperative Visi t; Support Rehabilitation Lesli Dias P.TPili [address] [place] [phone] Fracture Hip Intertrochanteric Closed In itial Left (HCC) Services in [address] [place] [address] Social History Tobacco Use Types Packs/Day Years Used Date Smoking Tobacco: Never Smokeless Tobacco: Never Alcohol Use Standard Drinks/Week Comments No 0 (1 standard drink = 0.6 oz pure alcoho l) Sex Assigned at Date Recorded Not on file documented as of this encounter Progress Notes Lesli Dias P.T. - 11/01/2019 4:00 PM CST Physical Therapy Outpatient Treatment Note SUBJECTIVE Patient's Name: Laz Cuauhtemoc Luna Referring Provider: Kacie Huerta APRN, C.* Visit Diagnosis: 1. Follow Up Examination Postoperative Visit 2. Fracture Hip Intertrochanteric Closed Initial Left (HCC) Reason for Referral: PT eval and treat Onset Date: 08/12/19 Payor: [facility] CARE / Plan: [facility] [employer] HMO / Product Type: Medicaid HMO / No data recorded Epic Visit Count: 6 Patient comments: Patient has been working out in the wellness center most days of the week that he does not have therapy. He does approximately an hour of exercises. He notes soreness and stiffness following. Suggested if symptoms persist greater than two hours to decrease the intensity. Should not increase pain by more than 2 points on the pain scale and should not increase swelling. OBJECTIVE Pain: stiffness and soreness noted Continues to ambulate with a straight cane. This continues to be recommended due to weakness to reduce fall risk. TREATMENT Treatment today consisted of: Performed the Bib + Tuck-Fit total body ergometer x 10 minutes level 3 resistance. Forward and lateral stepups on a 6 inch step. Standing squats x 20 reps. Marching with intermittent upper extremity support.Difficulty stabilizing on his left leg to lift the right. Seated hip abduction with purple therabandx 30 reps. Sidestepping in the parallel bars with intermittent upper extremity support, glut medius weakness noted. Narrowed base of support for balance training 2 x 30 seconds. Home Exercise Program/Education: Continue with current home program. Pt reports good compliance with his HEP. Assessment Clinical Impression:Patient is demonstrating good tolerance to exercise program. He still requires assistive device to reduce fall risk and still has weakness evident in the lower extremities. He will continue to benefit from skilled therapy to return to previous functional level and for return to work. Functional Goals and [...] Date: 12/08/19 Plan Plan for next session: Strengthening, gait and balance training. Time Spent with Patient Gait Training (min): 5 min Therapeutic Exercise (min): 25 min Time Calculation Total Timed Units (min): 30 min Total Treatment Time (min): 30 min Lesli Dias P.T. Department of Rehabilitation Services in [address] [address] Dept: [phone] ING GEAR MECHANIC documented in this encounter Plan of Treatment Not on filedocumented as of this encounter Visit Diagnoses Diagnosis Follow Up Examination Postoperative Visi t Fracture Hip Intertrochanteric Closed In itial Left (HCC) documented in this encounter Additional Health Concerns Assessment Noted Time PHQ-9 Depression Total Score: 18 02/14/2013 9:53 AM CD T documented as of this encounter Care Teams Wellness Ambassador Relationship Specialty Start Date End Date Cintia Cobb M.D. PCP - General 02/19/17 02/20/[address] [place] [phone] documented as of this encounter
--- OUTSIDE RECORDS SUMMARY | 2022-07-29 10:47 | XMS_ITS | Encounter Summary ---
:1960 Author Organization [facility] Address [address] [place] [address] Care Team Providers Name Role Phone Cintia Cobb M.D. Primary Care Provider [phone] Encounter Details Date Type Department Care Team Description 11/07/2019 Hospital Encounter Department of [place] Fracture Hip Closed Radiology in Cintia Jean Baptiste Initi renée Mcmahon ([facility]) [place], [place] Keely Piper [address] [place] [phone] Social History Tobacco Use Types Packs/Day Years [...] DX HIP LEFT 2-3 RAD - Routine 11/07/2019 2:58 Fracture Hip Results for this VIEWS (most inpatients PM PRESSER ALL AROUND Closed Initial procedure are in and all Left (HCC) the results outpatients) section. documented in this encounter Results DX Hip Left 2-3 Views (11/07/2019 2:58 PM PRESSER ALL AROUND) Anatomical Region Laterality Modality Lower Extremity, Hip, Musculoskeletal RST LOS, Left Digital Radiography Musculoskeletal ARZ LOS, Muskuloskeletal FLA LOS Specimen (Source) Anatomical Collection Method Collection Time Re ceived Time Location / / Volume Laterality 11/07/2019 3:14 PM PRESSER ALL AROUND Impressions 11/07/2019 3:15 PM PRESSER ALL AROUND Postop changes prior IM ovidio, nail fixation across a right intertrochanteric hip fracture deformity . The distal right femoral fracture component is superiorly subluxed approxi mately 1 cm, continued healing of the prior fracture plane. Fracture plane rem ains faintly visible lung about the inferior medial margin. Scattered vascular calcifications. Scattered degenerative changes of the vi sualized lower lumbar spine, bilateral hips, symphysis pubis. Osteopenia which could obscure injury. Hardware is intact Narrative 11/07/2019 3:15 PM PRESSER ALL AROUND EXAM: DX HIP LEFT 2-3 VIEWS COMPARISON: October 04, 2019, August. Procedure Note Amari Rhodes M.D. - 11/07/2019Forma tting of this note might be different from the original. EXAM: DX HIP LEFT 2-3 VIEWS COMPARISON: October 04, 2019, August. IMPRESSION: Postop changes prior IM ovidio, nail fixati on across a right intertrochanteric hip fracture deformity . The distal right femoral fracture component is superiorly subluxed approxi mately 1 cm, continued healing of the prior fracture plane. Fracture plane rem ains faintly visible lung about the inferior medial margin. Scattered vascular calcifications. Scattered degenerative changes of the vi sualized lower lumbar spine, bilateral hips, symphysis pubis. Osteopenia which could obscure injury. Hardware is intact Cintia Copeland M.D. IMG DIAGNOSTIC IMAGING PROCEDURES documented in this encounter Visit Diagnoses Diagnosis Fracture Hip Closed Initial Left (HCC) documented in this encounter Additional Health Concerns Assessment Noted Time PHQ-9 Depression Total Score: 18 02/14/2013 9:53 AM CD T documented as of this encounter Care Teams Cruller Maker Machine Relationship Specialty Start Date End Date Cintia Cobb M.D. PCP - General 02/19/17 02/20/[address] [phone] documented as of this encounter
--- OUTSIDE RECORDS SUMMARY | 2022-07-29 10:47 | XMS_ITS | Encounter Summary ---
:1960 Author Organization [facility] Address [address] [place] [address] Care Team Providers Name Role Phone Kevin Bullock M.D. Primary Care Provider [phone] Reason for Referral Outpatient (Routine) - Closed Specialty Diagnoses / Procedures Referred By Contact Refer red To Contact Diagnoses Fracture Hip Closed Initial Left (HCC) Kevin Bullock [facility] Procedures BMD Bone Density Spine Hips Keely Piper [address] [address] Referral ID Status Reason Start Date Expiration Date Visits Requ ested Visits Authorized [id number] Closed 11/08/2019 11/07/2020 1 1 hysical Therapy (Routine) - Closed Specialty Diagnoses / Procedures Referred By Contact Refer red To Contact Diagnoses Pain Shoulder Right Kevin Bullock [facility] Procedures PT Evaluate and treat SKeely [address] [address] Referral ID Status Reason Start Date Expiration Date Visits Requ ested Visits Authorized [id number] Closed 11/08/2019 11/07/2020 1 1 MOGRAPH RECORDER Reason for Visit Appointment Request (Routine) - Closed Specialty Diagnoses / Procedures Referred By Contact Refer red To Contact Family Medicine Referral ID Status Reason Start Date Expiration Date Visits Requ ested Visits Authorized [id number] Closed 10/04/2019 10/03/2020 1 1 Encounter Details Date Type Department Care Team Description 11/08/2019 Office Visit Department of Family Terri Bullock Mellitus Type 2 With Diabetic Neuropathy ([facility]) (Primary Dx); Medicine, Jose Daniel Piper M.D. Diabetes Mellitus Type 2 Ulcer Foot ([facility] ); [facility], in [address] [place] [address] Pain Elle ulder Right; Jose Daniel Dean, [facility] Fracture Hip Closed Initial Left (HCC); [place] Jose Daniel Dean [place] Anemia Microcytic; [address] [place] [address] [address] [address] Gastric Bypass Status Post; DREW CONDON [phone] Hypertensio n Essential Primary; [phone] (Work) Hyperlipidemia On Treatment; [phone] Flutter A trial ([facility]) Social History Tobacco Use Types Packs/Day Years Used Date Smoking Tobacco: Never Smokeless Tobacco: Never Alcohol Use Standard Drinks/Week Comments No 0 (1 standard drink = 0.6 oz pure alcoho l) Sex Assigned at Date Recorded Not on file documented as of this encounter Progress Notes Kevin Bullock M.D. - 11/08/2019 5:30 PM CST SUBJECTIVE CHIEF COMPLAINT / REASON FOR VISIT Ed Cuauhtemoc Luna is a 59 y.o. male who presents for evaluation of No chief complaint on file.. HISTORY OF PRESENT ILLNESS Ed presents today with his , Julissa, and reports that his pain involving his left hip is slowly improving. He has been attending physical therapy and [facility] here in [place]. reports that Ed has been having more energy lately, but Ed does not believe that there has been any changes. He denies experiencing any issues with chest pain or shortness of breath. He has not noticed any black or bloody stools. Additionally, he reports experiencing pain to his right biceps. He notes that he injured his right biceps when he was in the 9th grade when wrestling. Throwing seems to aggravate this pain. Patient is interested in finding out what is wrong. He is not checking his blood sugars. His feet have not been as numb lately. has been putting Vaseline and Mepilex dressing to the left heel. She feels this is improving. REVIEW OF SYSTEMS A brief review of [...] week. Dx: E11.9, brand per insurancepreference ??? calcium carbonate (TUMS) 500 mg (200 mg calcium) chewable tablet Chew 2 tablets 2 (two) times a day. ??? foam bandage (Mepilex) 4 X 4 bandage Apply 1 each topically every 3 (three) days. ??? furosemide (LASIX) 40 mg tablet TAKE ONE TABLET BY MOUTH DAILY ??? loperamide (IMODIUM A-D) 2 mg capsule Take 2 mg by mouth 4 (four) times a day as needed for diarrhea. ??? omeprazole (PriLOSEC) [address] capsule Take 1 capsule (20 mg total) by mouth every morning before breakfast. ??? PEDIATRIC MULTIVITAMIN NO.76 (FLINTSTONES COMPLETE ORAL) Take 4 tablets by mouth daily. ??? sennosides-docusate sodium (SENOKOT-S) 8.6-50 mg per tablet Take 1 tablet by mouth 2 (two) timesa day as needed for constipation. ??? tamsulosin (FLOMAX) 0.4 mg 24 hr capsule TAKE ONE CAPSULE BY MOUTH ONCE DAILY Allergies Allergen Reactions ??? Ciprofloxacin Other (see comments) Genital swelling ??? Haemophilus Influenzae GI intolerance Diarrhea OBJECTIVE PHYSICAL EXAMINATION There were no vitals taken for this visit. There is no height or weight on file to calculate BMI. Patient declined vitals. General: Alert and oriented. No acute distress. Neck: Supple. No lymphadenopathy. No carotid bruits. Cardiovascular Exam: Regular rate and rhythm. Normal S1 and S2. No murmurs, rubs, or gallops. Lungs: Clear to auscultation bilaterally. Extremities: No pedal edema. 1+ DP pulse to the left foot. There is a rao prominence to the left first MTP joint . Normal sensation to monofilament test to the left foot. Normal range of motion with forward flexion and shoulder abduction bilaterally. 5/5 strength with shoulder abduction bilaterally. 4+/5 strength with elbow flexion and extension to the right. 4/5 strength with elbow flexion to the left. 3/5 strength with elbow extension to the left. Slight pain with Neer impingement test on the right. Normal strength with subscapularis lift off test with slight pain to the right. Slight pain with empty can test on the right, but good strength. With resisted forward flexion on the right, patient has good strength and no significant pain. Skin: There is a superficial ulceration to the left posterior heal, measuring approximately 7 mm x 8mm, with maceration around the edges. No significant slough at the base. No sign of infection. ASSESSMENT / PLAN #1 Diabetes Mellitus Type 2 With Diabetic Neuropathy ([facility]) Last A1c at goal at 5.7%. #2 Diabetes Mellitus Type 2 Ulcer Foot ([facility]) Recommended that they stop using Vaseline as wound edges are white and macerated today. Discussed that they can resume this if the wound becomes too dry looking. Continue with Mepilex. This does seem to be improving. #3 Pain Shoulder Right Discussed that pain is most likely related to rotator cuff tendonitis and recommended PT. He has good strength so I feel a full thickness tear is less likely. He is interested in imaging, but with his pacemaker, an MRI is likely not an option. I discussed that imaging at this point would not change anything. He will try PT. #4 Fracture Hip Closed Initial Left ([facility]) Continue with PT and orthopedics. #5 Anemia Microcytic Encouraged patient to take an iron supplement or undergo iron infusion due to persistent anemia and iron deficiency. Patient declines. #6 Gastric Bypass Status Post Will get labs with next visit. Recommended that patient take his Vitamin B12 supplement daily. #7 Hypertension Essential Primary Blood pressure at goal not on meds. #8 Hyperlipidemia On Treatment Patient is not taking meds. #9 Flutter Atrial ([facility]) Pacemaker in place. Not on anticoagulation. Plan was discussed with patient and is in agreement with plan. All questions were answered, side effects of any/all new medications were discussed. Patient left in no acute distress. By signing my name below, I, Jonah Valiente, attest that this documentation has been prepared under the direction and in the presence of Kevin Copeland M.D. Electronically Signed: lidia Ag. 11/08/2019. 7:29 PM SEISMOGRAPH RECORDER . I, Kevin Copeland M.D., personally performed the services described in this documentation.All medical record entries made by the scribe were at my direction and in my presence. I have reviewed the chart and discharge instructions (if applicable) and agree that the record reflects my personal performance and is accurate and complete. Kevin Copeland M.D. . 11/09/2019. 9:53 PM SEISMOGRAPH RECORDER. MOGRAPH RECORDER documented in this encounter Miscellaneous Notes Addendum Note - Kevin Bullock M.D. - 11/08/2019 5:30 PM SEISMOGRAPH RECORDER Addended by: KEVIN BULLOCK on: 11/19/2019 11:54 AM Modules accepted: Orders documented in this encounter Plan of Treatment Not on filedocumented as of this encounter Results (ABNORMAL) Ferritin (12/18/2020 7:49 PM CDT) P athologist Signature Ferritin, S 18 (L) 31 - 409 12/19/2020 [facility] mcg/L 1:47 PM CDT Comment: Biotin has been identified by the [facility] as a potential interfering substance. ??Higher concentr ations of biotin may be found in multivitamins, hair/nail supple ments, and workout supplements. ??If the result does not [facility] clinical observations, repeat testing after patient refrains fr om the use of supplements for at least 12 hours. Specimen Anatomical Collection Method Collection Time Receive d Time (Source) Location / / Volume Laterality Blood (Blood, 12/18/2020 7:49 PM 12/20/19 Venous) CDT 12:42 PM CDT Kevin Copeland M.D. LAB BLOOD ADD-ON Performing Organization Address City/State/ZIP Code Phon e Number [facility]- [address] [place] [address] [facility] [place] [address] System in [place] [address] Good Lipid Panel (12/18/2020 7:49 [...] PM 12/19/19 8:07 Venous) CDT PM CDT Kevin Copeland M.D. LAB BLOOD ADD-ON Performing Organization Address City/State/ZIP Code Phon e Number [facility]- [address] [place] [address] [place] [address] [place] [address] System in [address] (ABNORMAL) Basic Metabolic Panel (12/18/2020 7:49 [...] CDT eGFR-Black/Afri >90 >=60 12/18/2020 [facility] can [place] mL/min/BSA 8:31 PM CDT Comment: ----ADDITIONAL INFORMATION---- [...] PM 12/19/19 8:07 Venous) CDT PM CDT Kevin Copeland M.D. LAB BLOOD ADD-ON Performing Organization Address City/State/ZIP Code Phon e Number [facility]- [address] [place] [address] [place] [address] System in [address] (ABNORMAL) CBC without Differential (12/18/2020 7:48 PM CDT) Patholo gist Method Time Signature Hemoglobin 8.0 (L) [...] 12/19/19 21 8:07 Venous) CDT PM CDT Kevin Copeland M.D. LAB BLOOD ADD-ON Performing Organization Address City/State/ZIP Code Phon e Number [facility]- [address] [place] [address] [place] [address] System in [address] Hemoglobin A1c (12/18/2020 7:48 PM CDT) P athologist Signature Hemoglobin A1c, 5.3 4.2 - 5.6 12/18/2020 CN[facility] B % 8:33 PM CDT Specimen Anatomical Collection Method Collection Time Receive d Time (Source) Location / / Volume Laterality Blood (Blood, 12/18/2020 7:48 PM 12/19/19 21 8:07 Venous) CDT PM CDT Kvein Copeland M.D. LAB BLOOD ADD-ON Performing Organization Address City/State/[facility] Code Phon e Number [facility]- [address] [place] [address] [place] [address] System in [place] [address] [address] 25-Hydroxyvitamin D2 and D3 (12/18/2020 7:48 PM CDT) P athologist Signature 25-Hydroxy D2 <4.0 ng/mL 12/21/2020 [...] and its performa nce characteristics determined by [facility] in a manner consistent with CLIA requirements. This test has not been cleared or approved by the [place] and Drug Administration. Specimen Anatomical Collection Method Collection Time Receive d Time (Source) Location / / Volume Laterality Blood (Blood, 12/18/2020 7:48 PM 12/21/19 7:59 Venous) CDT AM CDT Kevin oCpeland M.D. LAB BLOOD ADD-ON Performing Organization Address City/State/ZIP Code Phon e Number [facility] [address] [place], [place] [address] [place] [address] [place] [address] Laboratory Medicine and Pathology [address] [place] BMD Bone Density Spine Hips (11/09/2019 3:05 PM SEISMOGRAPH RECORDER) Anatomical Region Laterality Modality Hip, Lumbar Spine, Nuclear Medicine RST LOS, N/A Radiographic Imaging Musculoskeletal ARZ LOS, Muskuloskeletal FLA LOS Specimen (Source) Anatomical Collection Method Collection Time Re ceived Time Location / / Volume Laterality 11/09/2019 3:29 PM SEISMOGRAPH RECORDER Impressions 11/09/2019 3:31 PM SEISMOGRAPH RECORDER Osteoporosis. Narrative 11/09/2019 3:31 PM SEISMOGRAPH RECORDER EXAM: BMD BONE DENSITY SPINE HIPS COMPARISON: None. Copywriting Intern/Model: [employer] FINDINGS: ?? LUMBAR SPINE L1-L4 included unless [...] BMD BONE DENSITY SPINE HIPS COMPARISON: None. Copywriting Intern/Model: [employer] FINDINGS: LUMBAR SPINE L1-L4 included unless otherwise [...] penia) -2.5 or less Osteoporosis IMPRESSION: Osteoporosis. Kevin Copeland M.D. IMG DXA PROCEDURES documented in this encounter Visit Diagnoses Diagnosis Diabetes Mellitus Type 2 With Diabetic N europathy (HCC) - Primary Diabetes Mellitus Type 2 Ulcer Foot (HCC ) Pain Shoulder Right Fracture Hip Closed Initial Left (HCC) Anemia Microcytic Gastric Bypass Status Post Hypertension Essential Primary Hyperlipidemia On Treatment Flutter Atrial (HCC) Fracture Hip Closed Initial Left (HCC) documented in this encounter Additional Health Concerns Assessment Noted Time PHQ-9 Depression Total Score: 18 02/14/2013 9:53 AM CD T documented as of this encounter Care Teams Paper Spooler Relationship Specialty Start Date End Date Kevin Bullock M.D. PCP - General 02/19/17 02/20/[address] [address] documented as of this encounter
--- OUTSIDE RECORDS SUMMARY | 2022-07-29 10:47 | XMS_ITS | Encounter Summary ---
:1960 Author Organization [facility] Address [address] [place] [address] Care Team Providers Name Role Phone Cintia Cobb M.D. Primary Care Provider [phone] Encounter Details Date Type Department Care Team Description 11/02/2019 Orders Only Department of [facility] Hip Closed Medicine, Jose Daniel Piper M.D. Initial Left (HCC) [facility], [place] [address] (Primary Dx) [address] [address] [place], [place] [phone] (W ork) [address] [phone] Social History Tobacco Use Types Packs/Day Years Used Date Smoking Tobacco: Never Smokeless Tobacco: Never Alcohol Use Standard Drinks/Week Comments No 0 (1 standard drink = 0.6 oz pure alcoho l) Sex Assigned at Date Recorded Not on file documented as of this encounter Plan of Treatment Not on filedocumented as of this encounter Results DX Hip Left 2-3 Views (11/07/2019 2:58 PM ONLINE PRODUCER) Anatomical Region Laterality Modality Lower Extremity, Hip, Musculoskeletal RST LOS, Left Digital Radiography Musculoskeletal ARZ LOS, Muskuloskeletal FLA LOS Specimen (Source) Anatomical Collection Method Collection Time Re ceived Time Location / / Volume Laterality 11/07/2019 3:14 PM ONLINE PRODUCER Impressions 11/07/2019 3:15 PM ONLINE PRODUCER Postop changes prior IM ovidio, nail fixation [...] Hardware is intact Narrative 11/07/2019 3:15 PM ONLINE PRODUCER EXAM: DX HIP LEFT 2-3 VIEWS COMPARISON: [...] Hip Closed Initial Left (HCC) - Primary Fracture Hip Closed Initial Left (HCC) documented in this encounter Additional Health Concerns Assessment Noted Time PHQ-9 Depression Total Score: 18 02/14/2013 9:53 AM CD T documented as of this encounter Care Teams Base Brander Relationship Specialty Start Date End Date Cintia Cobb M.D. PCP - General 02/19/17 02/20/[address] [place] [phone] documented as of this encounter
--- OUTSIDE RECORDS SUMMARY | 2022-07-29 10:47 | XMS_ITS | Encounter Summary ---
:1960 Author Organization [facility] Address [address] [place] [address] Care Team Providers Name Role Phone Cintia Cobb M.D. Primary Care Provider Reason for Visit Reason Comments Med Refill Encounter Details Date Type Department Care Team Description 09/17/2019 Refill Department of Family Medicine, Gray Danielson M.D. Med Refill [facility], in [place] [address] [address] [place], [place] [address] [phone] Social History Tobacco Use Types Packs/Day Years [...] documented as of this encounter Care Teams Heavy Repairer Relationship Specialty Start Date End Date Cintia Cobb M.D. PCP - General 02/19/17 02/20/[address] [address] documented as of this encounter
--- OUTSIDE RECORDS SUMMARY | 2022-07-29 10:47 | XMS_ITS | Encounter Summary ---
:[address] [facility] Address [address] [place] [address] Care Team Providers Name Role Phone Cintia Cobb M.D. Primary Care Provider [phone] Encounter Details Date Type Department Care Team Description 10/31/2019 Orders Only Department of [facility] Angélica Cobb Medicine, Jose Daniel Piper M.D. Clinic, in [address] [address] [place], [place] [phone] (W ork) [address] [phone] Social History Tobacco Use Types Packs/Day Years [...] documented as of this encounter Care Teams Concrete Boom Pump Operator Relationship Specialty Start Date End Date Cintia Cobb M.D. PCP - General 02/19/17 02/20/[address] [place] [phone] documented as of this encounter
--- OUTSIDE RECORDS SUMMARY | 2022-07-29 10:47 | XMS_ITS | Encounter Summary ---
:1960 Author Organization [facility] Address [address] [place] [address] Care Team Providers Name Role Phone Cintia Cobb M.D. Primary Care Provider [phone] Reason for Referral Physical Therapy (Routine) - Closed Specialty Diagnoses / Procedures Referred By Contact Refer red To Contact Diagnoses Follow Up Examination Postoperative Visit Fracture Hip Intertrochanteric Closed Initial Left (HCC) Kacie Huerta, HAKEEM, [facility] Procedures PT Evaluate and treat C.N.P., D.N.P. [address] [place] [address] Referral ID Status Reason Start Date Expiration Date Visits Requ ested Visits Authorized [id number] Closed 10/04/2019 10/03/2020 1 1 NG APPLICATOR Reason for Visit Appointment Request (Routine) - Closed Specialty Diagnoses / Procedures Referred By Contact Refer red To Contact Family Medicine Referral ID Status Reason Start Date Expiration Date Visits Requ ested Visits Authorized [id number] Closed 09/09/2019 09/08/2020 1 1 Encounter Details Date Type Department Care Team Description 10/04/2019 Office Visit Department of Kacie Huerta, Follow Up E xamination Postoperative Visit (Primary Dx); Orthopedic Surgery HAKEEM, C.N.P., Fracture Hip Intertrochanteric Closed Initial Left (HCC) in [place], Fidel[facility]Tigist. [place] [id number] [place] [phone] Social History Tobacco Use Types Packs/Day Years Used Date Smoking Tobacco: Never Smokeless Tobacco: Never Alcohol Use Standard Drinks/Week Comments No 0 (1 standard drink = 0.6 oz pure alcoho l) Sex Assigned at Date Recorded Not on file documented as of this encounter Progress Notes Kacie Huerta, HAKEEM, KelvinN.P., D.N.P. - 10/04/2019 3:00 PM CST Ed is a 59-year-old male who is almost 2 months status post open reduction intramedullary fixation of the left intratrochanteric femur fracture. He comes in today with his . He has been partially weight-bearing. He did not follow up for his postop visit due to the time it was set. He denies any signs or symptoms of infection and continues to have chapis intact. He also asked me to look at his left heel. He has an open wound from his hospitalization. Physical exam-left hip surgical incisions with chapis that were easily removed. There's no signs ofinfection. There's no edema or swelling noted. Mild tenderness. He is partially weight-bearing and has excellent sensation distally. He has weakness noted with quadriceps on the left side. Left heel with decubiti ulcer with no surrounding infectious symptoms. Marpeck dressing was applied Diagnostic studies x-ray of his left hip shows intra medullary fixation of the left intratrochanteric femur without hardware failure. Fracture line remains noted. Radiology reading-Prior surgical fixation across a subacute fracture of the intertrochanteric left femur. The fracture line remains visible with interval healing change. No evidence of hardware loosening. Negative for acute fracture. Degenerative changes at the lumbosacral junction, both SI joints, and right hip. Demineralization. Impression and plan- Ed is a 59-year-old had an open reduction intramedullary fixation of the left intratrochanteric femur fracture. At this time I will have him see Physical therapy and progress his weight-bearing status as well as assist him with exercises at home for strengthening. Will plan to seehim back in 3 months and will re-x-ray at that time. In regards to his left heel wound he should follow up with his primary care provider or the wound nurse. His questions were answered NG APPLICATOR documented in this encounter Plan of Treatment Not on filedocumented as of this encounter Results DX Hip And Pelvis Left 2-3 Views (10/04/2019 3:58 PM SIDING APPLICATOR) Anatomical Region Laterality Modality Lower Extremity, Pelvis, Hip, Musculoskeletal RST LOS, Left Digital Radiography Musculoskeletal ARZ LOS, Muskuloskeletal FLA LOS Specimen (Source) Anatomical Collection Method Collection Time Re ceived Time Location / / Volume Laterality 10/04/2019 4:42 PM SIDING APPLICATOR Impressions 10/04/2019 4:43 PM SIDING APPLICATOR Prior surgical fixation across a subacute fracture of the intertrochanteric left femur. The fractu re line remains visible with interval healing change. No evidence of hardware loosening. Negative for acute fracture. Degenerative changes at the lumbosacral junction, both SI joints, and right hip. Demineralization. Narrative 10/04/2019 4:43 PM SIDING APPLICATOR EXAM: DX HIP AND PELVIS LEFT 2-3 [...] both SI joints, and right hip. Demineralization. Kelvin Grant APRNN.Tigist., D.N.P. IMG DIAGNOSTIC IMAG ING PROCEDURES documented in this encounter Visit Diagnoses Diagnosis Follow Up Examination Postoperative Visi t - Primary Fracture Hip Intertrochanteric Closed In itial Left (HCC) Follow Up Examination Postoperative Visi t documented in this encounter Additional Health Concerns Assessment Noted Time PHQ-9 Depression Total Score: 18 02/14/2013 9:53 AM CD T documented as of this encounter Care Teams Tube Drawer Relationship Specialty Start Date End Date Cintia Cobb M.D. PCP - General 02/19/17 02/20/[address] [phone] documented as of this encounter
--- OUTSIDE RECORDS SUMMARY | 2022-07-29 10:47 | XMS_ITS | Encounter Summary ---
:1960 Author Organization [facility] Address [address] [place] [address] Care Team Providers Name Role Phone Cintia Cobb M.D. Primary Care Provider [phone] Reason for Visit Physical Therapy (Routine) - Canceled Specialty Diagnoses / Procedures Referred By Contact Refer red To Contact Diagnoses Follow Up Examination Postoperative Visit Fracture Hip Intertrochanteric Closed Initial Left (HCC) Kacie Huerta APRN, [facility] Procedures PT Ongoing treatment C.N.P., D.N.P. [address] [place] [address] Referral ID Status Reason Start Date Expiration Date Visits V isits Requested Authorized [id number] Canceled 10/13/2019 10/12/2020 99 99 Encounter Details Date Type Department Care Team Description 10/27/2019 Clinical Department of Kacie Huerta APRN, C.N.P., D.N.P. [address] [place] [phone] Follow Up Examination Postoperative Visi t; Support Rehabilitation Lesli Dias P.TPili [address] [place] [phone] Fracture Hip Intertrochanteric Closed In itial Left (HCC) Services in [address] [place] [address] Social History Tobacco Use Types Packs/Day Years Used Date Smoking Tobacco: Never Smokeless Tobacco: Never Alcohol Use Standard Drinks/Week Comments No 0 (1 standard drink = 0.6 oz pure alcoho l) Sex Assigned at Date Recorded Not on file documented as of this encounter Progress Notes Lesli Dias P.T. - 10/27/2019 4:00 PM CST Physical Therapy Outpatient Treatment Note SUBJECTIVE Patient's Name: Laz Cuauhtemoc Luna Referring Provider: Kacie Huerta APRN, C.* Visit Diagnosis: 1. Follow Up Examination Postoperative Visit 2. Fracture Hip Intertrochanteric Closed Initial Left (HCC) Reason for Referral: PT eval and treat Onset Date: 08/12/19 Payor: CARE / Plan: [facility] BLUE PLUS HMO / Product Type: Medicaid HMO / No data recorded Epic Visit Count: 5 Patient comments: Patient reports [facility]. He is having some muscle soreness as a result. Discussed recommendations for exercises to perform our PT program in there. Also recommended he not exceed 20 minutes on the bike. He is adjusting the seat appropriately to maintain precautions. OBJECTIVE Pain: muscle soreness noted today after an hour workout [facility] yesterday. TREATMENT Treatment today consisted of: Perform the Sci-Fit Total body ergometer times 10 minutes on level 1 resistance. Patient ago she did12 steps going step over step utilizing bilateral hand rails. Patient performed standing hip abduction, standing hip extension in standing hip flexion at 20 repetitions in each direction. Performed standing squats and lateral step-ups at 20 reps each. Worked on standing balance with modified Romberg stance with eyes closed 2 times 20 seconds. Home Exercise Program/Education: Home exercise program remain the same. Pt reports good compliance with his HEP. Assessment Clinical Impression: Patient tolerated treatment session well. Patient is progressing nicely with range of motion and strength. Patient will continue to benefit from skilled physical therapy to return to functional level in order to return to work. Functional Goals and Timeframes: [...] Plan for next session: Continue progression of strengthening. Time Spent with Patient Therapeutic Exercise (min): 30 min Time Calculation Total Timed Units (min): 30 min Total Treatment Time (min): 30 min Lesli Dias P.T. Department of Rehabilitation Services in [address] [phone] Dept: [phone] AT ANALYST documented in this encounter Plan of Treatment Not on filedocumented as of this encounter Visit Diagnoses Diagnosis Follow Up Examination Postoperative Visi t Fracture Hip Intertrochanteric Closed In itial Left (HCC) documented in this encounter Additional Health Concerns Assessment Noted Time PHQ-9 Depression Total Score: 18 02/14/2013 9:53 AM CD T documented as of this encounter Care Teams Targeteer Relationship Specialty Start Date End Date Cintia Cobb M.D. PCP - General 02/19/17 02/20/[address] [place] [phone] documented as of this encounter
--- OUTSIDE RECORDS SUMMARY | 2022-07-29 10:47 | XMS_ITS | Encounter Summary ---
:1960 Author Organization [facility] Address [address] [place] [address] Care Team Providers Name Role Phone Cintia Cobb M.D. Primary Care Provider [phone] Reason for Referral Outpatient (Routine) - Closed Specialty Diagnoses / Procedures Referred By Contact Refer red To Contact Orthopedic Surgery Diagnoses Follow Up Examination Postoperative Visit John Norman, [facility] [place] [address] Referral ID Status Reason Start Date Expiration Date Visits Requ ested Visits Authorized [id number] Closed 08/16/2019 08/15/2020 1 1 WRESTLER Encounter Details Date Type Department Care Team Description 08/16/2019 Orders Only Department of Keyla Lopez, Follow Up Examination Orthopedic Surgery in [place] Postoperative Visit [place] [phone] (Primary Dx) [address] ([place]) [place] [address] Social History Tobacco Use Types Packs/Day Years Used Date Smoking Tobacco: Never Smokeless Tobacco: Never Alcohol Use Standard Drinks/Week Comments No 0 (1 standard drink = 0.6 oz pure alcoho l) Sex Assigned at Date Recorded Not on file documented as of this encounter Plan of Treatment Scheduled Referrals Name Type Priority Associated Diagnoses Order S chedule Orthopedic Surgery Outpatient Referral Routine Follow Up [place] Expected: Post Op (clinic) Postoperative Visit 08/09 (Approximate), Expires: 08/16/2022 documented as of this encounter Visit Diagnoses Diagnosis Follow Up Examination Postoperative Visi t - Primary documented in this encounter Additional Health Concerns Assessment Noted Time PHQ-9 Depression Total Score: 18 02/14/2013 9:53 AM CD T documented as of this encounter Care Teams Ore Digger Relationship Specialty Start Date End Date Cintia Cobb M.D. PCP - General 02/19/17 02/20/[id number] [phone] documented as of this encounter
--- OUTSIDE RECORDS SUMMARY | 2022-07-29 10:47 | XMS_ITS | Encounter Summary ---
:1960 Author Organization [facility] Address [address] [place] [address] Care Team Providers Name Role Phone Cintia Cobb M.D. Primary Care Provider [phone] Reason for Referral Specialty Diagnoses / Procedures Referred By Contact Refer red To Contact [address] [phone] Referral ID Status Reason Start Date Expiration Date Visits Requ ested Visits Authorized Scheduling Instructions Wound care RIAL DISPOSITION INSPECTOR Encounter Details Date Type Department Care Team Description 10/18/2019 Infusion Department of Infusion [place], Pressure Injury (Ulcer) Of Left Heel Stage 2 ([facility]) (Primary Dx); Therapy in [place] Daniel Piper M.D. Wound Toe Without Damage To Nail Open Kiran bsequent; [address] Diabetes Mellitus Type 2 Peripheral Neur opathy ([facility]) [address] [place] [phone] [phone] Social History Tobacco Use Types Packs/Day Years Used Date Smoking Tobacco: Never Smokeless Tobacco: Never Alcohol Use Standard Drinks/Week Comments No 0 (1 standard drink = 0.6 oz pure alcoho l) Sex Assigned at Date Recorded Not on file documented as of this encounter Progress Notes Mitzi Williamson R.N. - 10/18/2019 1:00 PM CST Patient arrived today for wound assessment to left heel ulcer. Ulcer measures 0.25cmx0.25cm no measurable depth. Wound bed appears dry and granulated. Brown scab noted directly below ulcer. Scab removed and new tissue noted. Patients foot washed and dried. Jada wound clean dry and intact. Vaseline applied to wound bed and covered with Mepilex. Dressing should be changed every 3-7 days or as needed. Patients educated on dressing change. Patient given Mepilex and Vaseline for next dressing change. Patient will call to schedule next appointment. Patient educated on the importance of coming in earlier if wound appears worse in appearance. Patient and spouse has no questions or concerns at time ofdischarge. RIAL DISPOSITION INSPECTOR documented in this encounter Plan of Treatment Scheduled Referrals Name Type Priority Associated Order Schedule Diagnoses Medication Infusion Outpatient Referral Routine Diabetes Jena rutherford Ordered: Therapy; Other; 15 Type 2 Peripheral 10/08, minutes Neuropathy (HCC) Expires: Pressure Injury 10/17/2020 (Ulcer) Of Left Heel Stage 2 ([facility]) Wound Toe Without Damage To Nail Open Subsequent documented as of this encounter Visit Diagnoses Diagnosis Pressure Injury (Ulcer) Of Left Heel Sta ge 2 (HCC) - Primary Wound Toe Without Damage To Nail Open Kiran bsequent Diabetes Mellitus Type 2 Peripheral Neur opathy (HCC) documented in this encounter Additional Health Concerns Assessment Noted Time PHQ-9 Depression Total Score: 18 02/14/2013 9:53 AM CD T documented as of this encounter Care Teams Optoelectronic Technician Relationship Specialty Start Date End Date Cintia Cobb M.D. PCP - General 02/19/17 02/20/[address] [place] [phone] documented as of this encounter
--- OUTSIDE RECORDS SUMMARY | 2022-07-29 10:47 | XMS_ITS | Encounter Summary ---
:1960 Author Organization [facility] Address [address] [place] [address] Care Team Providers Name Role Phone Cintia Cobb M.D. Primary Care Provider [phone] Reason for Visit Physical Therapy (Routine) - Canceled Specialty Diagnoses / Procedures Referred By Contact Refer red To Contact Diagnoses Follow Up Examination Postoperative Visit Fracture Hip Intertrochanteric Closed Initial Left (HCC) Kacie Huerta APRN, [facility] Procedures PT Ongoing treatment C.N.P., D.N.P. [address] [place] [phone] Referral ID Status Reason Start Date Expiration Date Visits V isits Requested Authorized [id number] Canceled 10/13/2019 10/12/2020 99 99 Encounter Details Date Type Department Care Team Description 11/07/2019 Clinical Department of Kacie Huerta APRN, C.N.P., D.N.P. [address] [place] [phone] Follow Up Examination Postoperative Visi t; Support Rehabilitation Lesli Dias P.TPili [address] [place] [phone] Fracture Hip Intertrochanteric Closed In itial Left (HCC) Services in [address] [place] [address] Social History Tobacco Use Types Packs/Day Years Used Date Smoking Tobacco: Never Smokeless Tobacco: Never Alcohol Use Standard Drinks/Week Comments No 0 (1 standard drink = 0.6 oz pure alcoho l) Sex Assigned at Date Recorded Not on file documented as of this encounter Progress Notes Lesli Dias P.T. - 11/07/2019 2:00 PM CST Physical Therapy Outpatient Treatment Note SUBJECTIVE Patient's Name: Laz Cuauhtemoc Luna Referring Provider: Kacie Huerta APRN, C.* Visit Diagnosis: 1. Follow Up Examination Postoperative Visit 2. Fracture Hip Intertrochanteric Closed Initial Left (HCC) Reason for Referral: PT eval and treat Onset Date: 08/12/19 Payor: [facility] CARE / Plan: [facility] BLUE PLUS HMO / Product Type: Medicaid HMO / No data recorded Epic Visit Count: 8 Patient comments: no new complaints. OBJECTIVE Pain: soreness noted but controlled in the left hip. TREATMENT Treatment today consisted of: Performed Sci-Fit Total body ergometer level 4 resistance. Performed forward and lateral step-ups radha 6 in step times 20 repetitions each. Standing squats 20 repetitions and marching at 20 repetitionswithout upper extremity support. Performed standing hip abduction at 20 repetitions on the left lower extremity. Performed sidestepping without upper extremity support as well as ambulation over hurdles with bilateral upper extremity support. Worked on ambulation within the parallel bars without upperextremity support and without the use of assistive device. Patient continues to demonstrate decreased weight-bearing through left lower extremity in a Trendelenburg gait pattern. Patient recommended tocontinue use of a straight cane. Balance activities performed with a modified Romberg stance 4 times30 seconds involving head movements and eyes closed. Patient requires intermittent tactile cuing andupper extremity support with eyes closed. Home Exercise Program/Education: Patient will continue current home exercise program remain using a straight cane at this time. Pt reports good compliance with his HEP. Assessment Clinical Impression: Tolerated treatment session well. Patient is demonstrating improved strength and mobility. Patient will continue to benefit from skilled physical therapy to regain functional strength and ambulation without the use an assistive device. Functional Goals and Timeframes: PT Goal #1: [...] for next session: Continue with progression of strengthening and endurance building muscles gait balance training. Time Spent with Patient Gait Training (min): 8 min Therapeutic Exercise (min): 16 min Time Calculation Total Timed Units (min): 24 min Total Treatment Time (min): 24 min Lesli Dias P.T. Department of Rehabilitation Services in [address] [address] Dept: [phone] ARMS SPECIALIST documented in this encounter Plan of Treatment Not on filedocumented as of this encounter Visit Diagnoses Diagnosis Follow Up Examination Postoperative Visi t Fracture Hip Intertrochanteric Closed In itial Left (HCC) documented in this encounter Additional Health Concerns Assessment Noted Time PHQ-9 Depression Total Score: 18 02/14/2013 9:53 AM CD T documented as of this encounter Care Teams Wheel Cleaner Relationship Specialty Start Date End Date Cintia Cobb M.D. PCP - General 02/19/17 02/20/[address] [place] [phone] documented as of this encounter
--- OUTSIDE RECORDS SUMMARY | 2022-07-29 10:48 | XMS_ITS | Encounter Summary ---
:1960 Author Organization [facility] Address [address] [place] [address] Care Team Providers Name Role Phone Cintia Cobb M.D. Primary Care Provider [phone] Encounter Details Date Type Department Care Team Description 12/16/2018 Orders Only Department of [facility] Bhumi Bran, Therapy in [place], M.S.N., [place] [address] [facility] [address] [place] [phone] Social History Tobacco Use Types Packs/Day Years [...] documented as of this encounter Care Teams Clinic Md Associate Relationship Specialty Start Date End Date Cintia Cobb M.D. PCP - General 02/19/17 02/20/[address] [place] [phone] documented as of this encounter
--- OUTSIDE RECORDS SUMMARY | 2022-07-29 10:48 | XMS_ITS | Encounter Summary ---
:1960 Author Organization [facility] Address [address] [place] [address] Care Team Providers Name Role Phone Cintia Cobb M.D. Primary Care Provider [phone] Reason for Visit Reason Comments Post Hospital Follow-up Outpatient (Routine) - Closed Specialty Diagnoses / Procedures Referred By Contact Refer red To Contact Diagnoses Hemorrhage Gastrointestinal Luis Varghese, [facility] HAKEEM, C.N.P. [address] [place] [address] Referral ID Status Reason Start Date Expiration Date Visits Requ ested Visits Authorized [id number] Closed 04/15/2018 04/15/2019 1 1 Encounter Details Date Type Department Care Team Description 04/21/2018 Office Visit Department of [facility] Tnaja Munoz, P.A.-C. [address] [place] [address] Hemorrhage Gastrointestinal (Primary Dx) ; Medicine, Cintia Bella M.D. [address] [place] [phone] Anemia Of Chronic Disease; [facility], in Weakness Le g Left; [place], [facility]; [place] Diabetes Mellitus Type 2 Wit h Diabetic Neuropathy (HCC); [address] [place] [address] [place] [address] Social History Tobacco Use Types Packs/Day Years Used Date Smoking Tobacco: Never Smokeless Tobacco: Never Alcohol Use Standard Drinks/Week Comments No 0 (1 standard drink = 0.6 oz pure alcoho l) Sex Assigned at Date Recorded Not on file documented as of this encounter Last Filed Vital Signs Vital Sign Reading Time Taken Comments Blood Pressure 110/67 04/21/2018 1:44 PM CDT Pulse 82 04/21/2018 1:44 PM CDT Temperature - - Respiratory Rate - - Oxygen Saturation 100% 04/21/2018 1:44 PM CDT Inhaled Oxygen Concentration - - Weight - - Height - - Body Mass Index - - documented in this encounter Progress Notes Cintia Cobb M.D. - 04/21/2018 1:45 PM CDT CHIEF COMPLAINT / REASON FOR VISIT Ed Cuauhtemoc Luna is a 57 y.o. male who presents for evaluation of Post Hospital Follow-up. HISTORY OF PRESENT ILLNESS Ed presents today for a post hospital follow up visit. He is accompanied today by his . He visited the ER on 04/12/18 with reports of melena and several episodes of syncope. His hemoglobin was at a 2.9. He was admitted to the hospital in [place] and had an EGD showing an ulcer. 2 clips were placed.He received blood transfusions and hemoglobin improved. Discharge date was 04/15/2018. RN attempted follow up on 04/16/18, but was unable to reach patient. Today his hemoglobin has improved to 8.4. He denies being aware of any black or bloody stool. He does have problems with heartburn. He has been taking Prilosec twice daily for relief as recommended by GI. He states that he has pain in his left leg. He states that it feels completely . He also describes the pain as a soreness that radiates down his leg. He has no back pain and has not yet completed his CT scan. He does say that his chest has been feeling tight. This sensation seems to worse after he eats and is not necessarily made worse by activity. He also notes that his headaches and sensations of being light headed have improved but he still hasthem. He says that some days his energy has been good and some days it is bad. Brief Review of Systems: A brief review of systems was negative except for that mentioned in the history of present of illness. Current Outpatient Medications Medication Sig ??? acetaminophen (TYLENOL) 500 mg tablet Take 1,000 mg by mouth 3 (three) times a day as needed forpain. ??? allopurinol (for_ZYLOPRIM) 300 mg tablet Take 1 tablet (300 mg total) by mouth daily. ??? cyanocobalamin, vitamin B-12, 1,000 mcg/mL kit Inject 1,000 mcg under the skin every 30 (thirty)days. ??? DULoxetine (CYMBALTA) [address] capsule Take 1 capsule (20 mg total) by mouth 2 (two) times a day. ??? furosemide (LASIX) 40 mg tablet Take 1 tablet (40 mg total) by mouth daily. ??? omeprazole (PriLOSEC) 20 mg capsule Take 1 capsule (20 mg total) by mouth 2 (two) times a day before breakfast and dinner. Take BID for 1 month then take daily indefinitely. ??? PEDIATRIC MULTIVITAMIN NO.76 (FLINTSTONES COMPLETE ORAL) Take 2 tablets by mouth 2 (two) times aday. ??? sennosides-docusate sodium (SENNA WITH DOCUSATE SODIUM) 8.6-50 mg per tablet Take 2 tablets by mouth 2 (two) times a day. Allergies Allergen Reactions ??? Ciprofloxacin Other (see comments) Genital swelling ??? Haemophilus Influenzae GI intolerance Diarrhea PHYSICAL EXAM BP 110/67 (BP Location: Left arm, Patient Position: Sitting, Cuff Size: Regular) Pulse 82 SpO2 100% There is no height or weight on file to calculate BMI. General: Alert and oriented. No acute distress. Neck: Supple. No lymphadenopathy. No carotid bruits. Cardiovascular exam: Regular rate and rhythm. Normal S1 and S2. No murmurs, rubs, or gallops. Lungs: Clear to auscultation bilaterally. Extremities: No pedal edema. Abdomen: Epigastric region slightly tender to palpation. DIAGNOSTICS: Results for orders placed or performed during the hospital encounter of 04/21/18 CBC with Differential Result Value Ref Range Hemoglobin 8.4 (L) 13.2 - 16.6 g/dL Hematocrit 26.6 (L) 38.3 - 48.6 % Erythrocytes 2.99 (L) 4.35 - 5.65 x10(12)/L MCV 89.0 78.2 - 97.9 fL RBC Distrib Width 15.4 (H) 11.8 - 14.5 % Platelet Count 251 135 - 317 x10(9)/L Leukocytes 8.8 3.4 - 9.6 x10(9)/L Neutrophils 5.90 1.56 - 6.45 x10(9)/L Lymphocytes 1.91 0.95 - 3.07 x10(9)/L Monocytes 0.78 0.26 - 0.81 x10(9)/L Eosinophils 0.15 0.03 - 0.48 x10(9)/L Basophils 0.05 0.01 - 0.08 x10(9)/L ASSESSMENT/PLAN: #1 Hemorrhage Gastrointestinal #2 Anemia Of Chronic Disease Hemoglobin level rechecked and have improved to 8.4. Discussed about having an iron infusion but we will continue with oral for now. Continue taking Prilosec twice a day for a month. After one month, continue taking Prilosec once a day. He currently has f/u towards the end of May. #3 Weakness Leg Left Ordered CT scan without contrast for Lumbar spine. Will report results through e-mail. #4 Discomfort Chest Will monitor for now. If this does not improve we will look into coronary artery disease. #5 Diabetes Mellitus Type 2 With Diabetic Neuropathy (HCC) He stopped taking Cymbalta which he was on for the neuropathy because he was concerned that it was causing him to be sick. We discussed about taking this in the future. By signing my name below, I, Jonah Valiente, attest that this documentation has been prepared under the direction and in the presence of Dr. Cintia Copeland M.D. Electronically Signed: lidia Brower. 04/21/2018. 2:43 PM . I, Cintia Copeland M.D., personally performed the services described in this documentation.All medical record entries made by the scribe were at my direction and in my presence. I have reviewed the chart and discharge instructions (if applicable) and agree that the record reflects my personal performance and is accurate and complete. Cintia Copeland M.D. . 04/22/2018. 7:55 AM. documented in this encounter Plan of Treatment Not on filedocumented as of this encounter Procedures Procedure Name Priority Date/Time Associated Comments Diagnosis CT LUMBAR SPINE RAD - Routine 04/21/2018 2:58 Pain Low Back Results for this WITHOUT IV (most inpatients PM CDT procedure a re in CONTRAST and all the results outpatients) section. documented in this encounter Results CT Lumbar Spine without IV Contrast (04/21/2018 2:58 PM CDT) Anatomical Region Laterality Modality Lumbar Spine, Neuroradiology RST LOS N/A Com puted Tomography Specimen (Source) Anatomical Collection Method Collection Time Re ceived Time Location / / Volume Laterality 04/21/2018 3:06 PM CDT Impressions 04/22/2018 11:52 AM CDT IMPRESSION: 1. ??Multilevel degenerative changes lum bar spine. 2. ??Probable disc extrusion at L2-3 ext ending along the left lateral recess of L3. 3. ??Disc osteophyte complex at L5-S1 ma y be touching the exiting L5 nerve root, recommend correlation with possible left L5 radiculopathy. Narrative 04/22/2018 11:52 AM CDT EXAM: CT LUMBAR SPINE WITHOUT IV CONTRAST COMPARISON: None FINDINGS: Thickening bilateral adrenal g lands. ??Probable previous gastric bypass. ??Scattered vascular calcificati ons. ??Visible paraspinous soft tissues are otherwise unremarkable. 5 lumbar type vertebral bodies are assum ed. L1-2: Degenerative disc disease and bila teral facet degenerative joint disease. Mild central canal narrowing. L2-3: Degenerative disc disease with pos terior disc osteophyte complex and bilateral facet hypertrophic degenerativ e joint disease contributes to moderate to severe central canal stenosis. ??Soft tissue thickening along the left lateral recess between L2 and L3, likely disc ex trusion. ??Recommend MRI for further evaluation. ??Mild bilateral foraminal n arrowing. L3-4: Degenerative disc disease and bila teral hypertrophic degenerative joint disease. ??Broad-based posterior disc os teophyte complex contributes to moderate to severe central canal stenosis. ??Mild bilateral foraminal narrowing. L4-5: Posterior disc osteophyte complex and bilateral facet hypertrophic degenerative joint disease. ??Moderate c entral canal narrowing. ??Mild bilateral foraminal narrowing. L5-S1: Broad-based posterior disc osteop hyte complex eccentric to the left. Mild to moderate central canal narrowing . ??Disc osteophyte complex may be touching the exiting left L5 nerve root in the far lateral recess, recommend correlation with left L5 radiculopathy. Degenerative changes bilateral sacroilia c joints. Procedure Note Russ Tao M.D. - 04/22/2018Formatti ng of this note might be different from the original. EXAM: CT LUMBAR SPINE WITHOUT IV CONTRAS T COMPARISON: None FINDINGS: Thickening bilateral adrenal g lands. Probable previous gastric bypass. Scattered vascular calcification s. Visible paraspinous soft tissues are otherwise unremarkable. 5 lumbar type vertebral bodies are assum ed. L1-2: Degenerative disc disease and bila teral facet degenerative joint disease. Mild central canal narrowing. L2-3: Degenerative disc disease with pos terior disc osteophyte complex and bilateral facet hypertrophic degenerativ e joint disease contributes to moderate to severe central canal stenosis. Soft t issue thickening along the left lateral recess between L2 and L3, likely disc ex trusion. Recommend MRI for further evaluation. Mild bilateral foraminal bradley rowing. L3-4: Degenerative disc disease and bila teral hypertrophic degenerative joint disease. Broad-based posterior disc oste ophyte complex contributes to moderate to severe central canal stenosis. Mild b ilateral foraminal narrowing. L4-5: Posterior disc osteophyte complex and bilateral facet hypertrophic degenerative joint disease. Moderate sirena tral canal narrowing. Mild bilateral foraminal narrowing. L5-S1: Broad-based posterior disc osteop hyte complex eccentric to the left. Mild to moderate central canal narrowing . Disc osteophyte complex may be touching the exiting left L5 nerve root in the far lateral recess, recommend correlation with left L5 radiculopathy. Degenerative changes bilateral sacroilia c joints. IMPRESSION: 1. Multilevel degenerative changes lumba r spine. 2. Probable disc extrusion at L2-3 exten ding along the left lateral recess of L3. 3. Disc osteophyte complex at L5-S1 may be touching the exiting L5 nerve root, recommend correlation with possible left L5 radiculopathy. Cintia S Song [place] M.D. IMG CT PROCEDURES documented in this encounter Visit Diagnoses Diagnosis Hemorrhage Gastrointestinal - Primary Anemia Of Chronic Disease Weakness Leg Left Discomfort Chest Diabetes Mellitus Type 2 With Diabetic N europathy (HCC) Pain Low Back Unspecified documented in this encounter Additional Health Concerns Assessment Noted Time PHQ-9 Depression Total Score: 18 02/14/2013 9:53 AM CD T documented as of this encounter Care Teams Terrazzo Finisher Relationship Specialty Start Date End Date Cintia Cobb M.D. PCP - General 02/19/17 02/20/[address] [place] [phone] documented as of this encounter
--- OUTSIDE RECORDS SUMMARY | 2022-07-29 10:48 | XMS_ITS | Encounter Summary ---
:1960 Author Organization [facility] Address [address] [place] [address] Care Team Providers Name Role Phone Cintia Cobb M.D. Primary Care Provider [phone] Encounter Details Date Type Department Care Team Description 04/26/2018 Orders Only [facility] M.D[facility] Floor [address] [phone] (Wo rk) Social History Tobacco Use Types [...] documented as of this encounter Care Teams Tank Assembler Relationship Specialty Start Date End Date Cintia Cobb M.D. PCP - General 02/19/17 02/20/[id number] [place] [phone] documented as of this encounter
--- OUTSIDE RECORDS SUMMARY | 2022-07-29 10:48 | XMS_ITS | Encounter Summary ---
:1960 Author Organization [facility] Address [address] [place] [address] Care Team Providers Name Role Phone Cintia Cobb M.D. Primary Care Provider [phone] Encounter Details Date Type Department Care Team Description 10/22/2018 Orders Only Department of [facility] Angélica Cobb Medicine, Jose Daniel Piper M.D. Clinic, in [address] [address] [place], [place] [phone] (W ork) [address] [phone] Social History Tobacco Use Types Packs/Day Years [...] documented as of this encounter Care Teams Apprenticeship Training Representative Relationship Specialty Start Date End Date Cintia Cobb M.D. PCP - General 02/19/17 02/20/[address] [place] [phone] documented as of this encounter
--- OUTSIDE RECORDS SUMMARY | 2022-07-29 10:48 | XMS_ITS | Encounter Summary ---
:1960 Author Organization [facility] Address [address] [place] [address] Care Team Providers Name Role Phone Cintia Cobb M.D. Primary Care Provider [phone] Reason for Visit Reason Comments Med Refill Encounter Details Date Type Department Care Team Description 02/24/2019 Refill Department of [facility] Angélica Cobb Med Refill Medicine, [place] Pi[place] M.D. [facility], in [address] [place] [phone] Social History Tobacco Use Types Packs/Day Years Used Date Smoking Tobacco: Never Smokeless Tobacco: Never Alcohol Use Standard Drinks/Week Comments No 0 (1 standard drink = 0.6 oz pure alcoho l) Sex Assigned at Date Recorded Not on file documented as of this encounter Miscellaneous Notes Telephone Encounter - Cintia Cobb M.D. - 02/24/2019 2:53 PM CDT Rx filled. Telephone Encounter - Selam Ray - 02/24/2019 10:16 AM CDT Appears this medication may have been attempted to be refilled 09/2018 but it was neither e-scribed or printed so it did not go to a pharmacy Telephone Encounter - Ellen Reyes - 02/24/2019 10:03 AM CDT Name of Medication: Omeprazole Provider: Cintia Copeland M.D. Strength: [address] Capsule Frequency: Take 1 capsule by mouth every morning Pharmacy (include Location): [facility] Patient states he dont answer his phone but you can email him documented in this encounter Plan of Treatment Not on filedocumented as of this encounter Visit Diagnoses Not on filedocumented in this encounter Additional Health Concerns Assessment Noted Time PHQ-9 Depression Total Score: 18 02/14/2013 9:53 AM CD T documented as of this encounter Care Teams Fiscal Economist Relationship Specialty Start Date End Date Cintia Cobb M.D. PCP - General 02/19/17 02/20/[address] [place] [phone] documented as of this encounter
--- OUTSIDE RECORDS SUMMARY | 2022-07-29 10:48 | XMS_ITS | Encounter Summary ---
:1960 Author Organization [facility] Address [address] [place] [address] Care Team Providers Name Role Phone Cintia Cobb M.D. Primary Care Provider [phone] Reason for Visit Reason Onset Date Comments CT scan disc 04/30/2018 Encounter Details Date Type Department Care Team Description 04/30/2018 Clinical Communication Department of [facility] Fernanda Buckner CT scan disc Medicine, Jose Daniel Lindsay R.N. [address] [address] [place], [place] [phone] (Work) [phone] Social History Tobacco Use Types Packs/Day Years Used Date Smoking Tobacco: Never Smokeless Tobacco: Never Alcohol Use Standard Drinks/Week Comments No 0 (1 standard drink = 0.6 oz pure alcoho l) Sex Assigned at Date Recorded Not on file documented as of this encounter Miscellaneous Notes Telephone Encounter - Fernanda Buckner R.N. - 04/30/2018 11:34 AM CDT Disc of 04/21/18 CT scan taken from front end java developer to Med/ triage specialistTiffany, per pt request as he cannot get to the front end java developer before noon tomorrow (Thursday). documented in this encounter Plan of Treatment Not on filedocumented as of this encounter Visit Diagnoses Not on filedocumented in this encounter Additional Health Concerns Assessment Noted Time PHQ-9 Depression Total Score: 18 02/14/2013 9:53 AM CD T documented as of this encounter Care Teams Spray Stainer Relationship Specialty Start Date End Date Cintia Cobb M.D. PCP - General 02/19/17 02/20/[address] [place] [phone] documented as of this encounter
--- OUTSIDE RECORDS SUMMARY | 2022-07-29 10:48 | XMS_ITS | Encounter Summary ---
:1960 Author Organization [facility] Address [address] [place] [address] Care Team Providers Name Role Phone Cintia Cobb M.D. Primary Care Provider [phone] Encounter Details Date Type Department Care Team Description 08/02/2019 Orders Only Department of [facility] Terri Cobb (Primary Dx) Medicine, Jose Daniel Piper M.D. [facility] in [address] [place] [phone] [place], [place] [phone] (W ork) [phone] Social History Tobacco Use Types Packs/Day Years Used Date Smoking Tobacco: Never Smokeless Tobacco: Never Alcohol Use Standard Drinks/Week Comments No 0 (1 standard drink = 0.6 oz pure alcoho l) Sex Assigned at Date Recorded Not on file documented as of this encounter Plan of Treatment Not on filedocumented as of this encounter Visit Diagnoses Diagnosis Diarrhea - Primary documented in this encounter Additional Health Concerns Assessment Noted Time PHQ-9 Depression Total Score: 18 02/14/2013 9:53 AM CD T documented as of this encounter Care Teams Soil Science Teacher Relationship Specialty Start Date End Date Cintia Cobb M.D. PCP - General 02/19/17 02/20/[address] [place] [phone] documented as of this encounter
--- OUTSIDE RECORDS SUMMARY | 2022-07-29 10:48 | XMS_ITS | Encounter Summary ---
:1960 Author Organization [facility] Address [address] [place] [address] Care Team Providers Name Role Phone Cintia Cobb M.D. Primary Care Provider [phone] Reason for Visit Reason Comments Med Refill Encounter Details Date Type Department Care Team Description 07/17/2018 Refill Department of Infusion Cintia Cobb Med Refill Therapy in Feliz Arellano M.D. [address] [phone] (Wo rk) Social History Tobacco Use Types Packs/Day Years Used Date Smoking Tobacco: Never Smokeless Tobacco: Never Alcohol Use Standard Drinks/Week Comments No 0 (1 standard drink = 0.6 oz pure alcoho l) Sex Assigned at Date Recorded Not on file documented as of this encounter Miscellaneous Notes Telephone Encounter - Cintia Cobb M.D. - 07/20/2018 7:22 PM SOCIOLOGY FACULTY MEMBER Rx filled. OLOGY FACULTY MEMBER documented in this encounter Plan of Treatment Not on filedocumented as of this encounter Visit Diagnoses Not on filedocumented in this encounter Additional Health Concerns Assessment Noted Time PHQ-9 Depression Total Score: 18 02/14/2013 9:53 AM CD T documented as of this encounter Care Teams Manager Of Clinical Relationship Specialty Start Date End Date Cintia Cobb M.D. PCP - General 02/19/17 02/20/[address] [phone] documented as of this encounter
--- OUTSIDE RECORDS SUMMARY | 2022-07-29 10:48 | XMS_ITS | Encounter Summary ---
:1960 Author Organization [facility] Address [address] [place] [address] Care Team Providers Name Role Phone Cintia Bullock M.D. Primary Care Provider [phone] Reason for Visit Reason Comments hemoglobin follow up Encounter Details Date Type Department Care Team Description 09/28/2018 Office Visit Department of [facility] Terri Bullocktes Mellitus Type 2 With Diabetic Neuropathy (HCC) (Primary Dx); Medicine, Jose Daniel iPper M.D. Anemia Iron Deficiency Blood Loss Chroni c; [facility], in [address] [place] [address] Frequenc y Urinary; [facility] Hypertension Essential Primary; [place], [place] Herniated Disc Lumbar; [address] [place] [phone] Screening Examination Prostate Cancer; [place], [place] [phone] Diarrhea [phone] (Work) [phone] Social History Tobacco Use Types Packs/Day Years Used Date Smoking Tobacco: Never Smokeless Tobacco: Never Alcohol Use Standard Drinks/Week Comments No 0 (1 standard drink = 0.6 oz pure alcoho l) Sex Assigned at Date Recorded Not on file documented as of this encounter Last Filed Vital Signs Vital Sign Reading Time Taken Comments Blood Pressure 134/85 09/28/2018 6:15 PM IN SCHOOL SUSPENSION AIDE Pulse 80 09/28/2018 6:15 PM IN SCHOOL SUSPENSION AIDE Temperature - - Respiratory Rate - - Oxygen Saturation 100% 09/28/2018 6:15 PM IN SCHOOL SUSPENSION AIDE Inhaled Oxygen Concentration - - Weight - - Height - - Body Mass Index - - documented in this encounter Progress Notes Cintia Bullock M.D. - 09/28/2018 6:45 PM CST CHIEF COMPLAINT / REASON FOR VISIT Ed Cuauhtemoc Luna is a 58 y.o. male who presents for evaluation of hemoglobin follow up. HISTORY OF PRESENT ILLNESS Ed reports that everything has been going okay. He believes that his energy is still low. He tends to fall asleep after eating but he has difficulties staying asleep at night as well. He states that hewill wake up around 3-4 a.m. He is unable to fall back asleep. He has been having troubles with sleep for quite some time. Concerning his diabetes, he has not checked his blood sugar in a while. He also has not checked his blood pressure. He denies experiencing any chest pain. He has not noticed any changes in his neuropathy. He states that his left leg has been doing okay. He notes that he recently had a cortisone injectionin his back, which provided some relief. He has another appointment for an injection in October. Miguel note having some weakness, but he has not had his leg give out on him. He tries to be careful when walking on stairs, but will occasionally forget. He additionally mentions having some urinary urgency and incontinence. Brief Review of Systems: A brief review of systems was negative except for that mentioned in the history of present of illness. Current Outpatient Medications Medication Sig ??? acetaminophen (TYLENOL) 500 mg tablet Take 1,000 mg by mouth 3 (three) times a day as needed forpain. ??? allopurinol (ZYLOPRIM) 300 mg tablet Take 1 tablet (300 mg total) by mouth daily. ??? cyanocobalamin, vitamin B-12, 1,000 mcg/mL kit Inject 1,000 mcg under the skin every 30 (thirty)days. ??? furosemide (LASIX) 40 mg tablet Take 1 tablet (40 mg total) by mouth daily. ??? gabapentin (NEURONTIN) 600 mg tablet TAKE TWO TABLETS (1200MG) BY MOUTH THREE TIMES A DAY ??? omeprazole (PriLOSEC) [address] capsule Take 1 capsule (20 mg total) by mouth every morning before breakfast. Take BID for 1 month then take daily indefinitely. ??? PEDIATRIC MULTIVITAMIN NO.76 (FLINTSTONES COMPLETE ORAL) Take 2 tablets by mouth 2 (two) times aday. ??? sennosides-docusate sodium (SENNA WITH DOCUSATE SODIUM) 8.6-50 mg per tablet Take 2 tablets by mouth 2 (two) times a day. ??? tamsulosin (FLOMAX) 0.4 mg 24 hr capsule Take 1 capsule (0.4 mg total) by mouth daily. Allergies Allergen Reactions ??? Ciprofloxacin Other (see comments) Genital swelling ??? Haemophilus Influenzae GI intolerance Diarrhea PHYSICAL EXAM BP 134/85 (BP Location: Left arm, Patient Position: Sitting, Cuff Size: Regular) Pulse 80 SpO2 100% There is no height or weight on file to calculate BMI. General: Alert and oriented. No acute distress. Neck: Supple. No lymphadenopathy. No carotid bruits. Cardiovascular exam: Regular rate and rhythm. Normal S1 and S2. No murmurs, rubs, or gallops. Lungs: Clear to auscultation bilaterally. Extremities: No pedal edema. Abdomen: Normal bowel sounds. Soft. Nontender. No guarding, rebounding or masses. DIAGNOSTICS: Results for orders placed or performed in visit on 09/28/18 Hemoglobin A1c Result Value Ref Range Hemoglobin A1c, B 5.9 (H) 4.2 - 5.6 % Hemoglobin Result Value Ref Range Hemoglobin 7.8 (L) 13.2 - 16.6 g/dL ASSESSMENT/PLAN: #1 Diabetes Mellitus Type 2 With Diabetic Neuropathy (HCC) A1c obtained and trending up minimally. He declined a foot exam and microalbumin lab today. #2 Anemia Iron Deficiency Blood Loss Chronic Hemoglobin obtained and unchanged. Will again recommend iron infusions. No obvious sign of bleeding. #3 Frequency Urinary Will start Flomax 0.4 mg daily. #4 Screening Examination Prostate Cancer PSA labs screening ordered. By signing my name below, Jonah Contreras, attest that this documentation has been prepared under the direction and in the presence of Dr. Cintia Copeland M.D. Electronically Signed: lidia Ag. 09/29/2018. 6:39 AM . Cintia Contreras M.D., personally performed the services described in this documentation.All medical record entries made by the scribe were at my direction and in my presence. I have reviewed the chart and discharge instructions (if applicable) and agree that the record reflects my personal performance and is accurate and complete. Cintia Copeland M.D. . 09/30/2018. 1:26 PM. SCHOOL SUSPENSION AIDE Xochitl Hackett L.P.N. - 09/28/2018 6:45 PM CST Client has question about omeprazole script. is unclear on what he's speaking of. Ed believes they want to cover four months. Instructed to find out what problem is. SCHOOL SUSPENSION AIDE documented in this encounter Miscellaneous Notes Addendum Note - Cintia Bullock M.D. - 09/28/2018 6:45 PM IN SCHOOL SUSPENSION AIDE Addended by: CINTIA BULLOCK on: 08/02/2019 06:53 PM Modules accepted: Orders SCHOOL SUSPENSION AIDE documented in this encounter Plan of Treatment Not on filedocumented as of this encounter Procedures Procedure Name Priority Date/Time Associated Diagnosis Comme nts PROSTATE-SPECIFIC AG Routine 09/28/2018 7:08 PM Screening R esults for this (PSA) SCRN, S IN SCHOOL SUSPENSION AIDE Examination Prostate proced ure are in Cancer the results section. HEMOGLOBIN, B Routine 09/28/2018 7:08 PM Anemia Iron Results for this IN SCHOOL SUSPENSION AIDE Deficiency Blood procedure a re in Loss Chronic the results section. HEMOGLOBIN A1C, B Routine 09/28/2018 7:08 PM Diabetes Mellitus Results for this IN SCHOOL SUSPENSION AIDE Type 2 With Diabetic procedu re are in Neuropathy (HCC) the results section. documented in this encounter Results PSA (Prostate-Specific Antigen) Screen (09/28/2018 7:08 PM IN SCHOOL SUSPENSION AIDE) P athologist Signature Prostate-Specif 2.0 <=4.5 09/29/2018 [facility] ic Ag ng/mL 1:30 PM IN SCHOOL SUSPENSION AIDE [facility] Comment: Biotin has been identified by the [facility] as a potential interfering substance. ??Higher concentr ations of biotin may be found in multivitamins, hair/nail supple ments, and workout supplements. ??If the result does not ma [facility] clinical observations, repeat testing after patient [...] Location / / Volume Laterality Blood (Blood, 09/28/2018 7:08 PM 09/29/19 19 Venous) IN SCHOOL SUSPENSION AIDE 12:48 PM IN SCHOOL SUSPENSION AIDE Cintia Copeland M.D. LAB BLOOD ADD-ON Performing Organization Address City/State/ZIP Code Phon e Number [facility] [address] [place] [address] [place] [facility] (ABNORMAL) Hemoglobin (09/28/2018 7:08 PM IN SCHOOL SUSPENSION AIDE) athologist Signature Hemoglobin 7.8 (L) 13.2 - 16.6 09/28/2018 [facility] g/dL 7:30 PM [facility] Specimen Anatomical Collection Method Collection Time Receive d Time (Source) Location / / Volume Laterality Blood (Blood, 09/28/2018 7:08 PM 09/28/19 19 7:27 Venous) IN SCHOOL SUSPENSION AIDE PM IN SCHOOL SUSPENSION AIDE Cintia Copeland M.D. LAB BLOOD ADD-ON Performing Organization Address City/State/ZIP Code Phon e Number [facility] [address] [place] [address], [place] [address] [place] [facility] (ABNORMAL) Hemoglobin A1c (09/28/2018 7:08 PM IN SCHOOL SUSPENSION AIDE) P athologist Signature Hemoglobin A1c, 5.9 (H) 4.2 - 5.6 09/28/2018 [facility] B % 7:43 PM IN SCHOOL SUSPENSION AIDE [facility] Comment: Hemoglobin A1c values of 5.7-6.4 percent indicate an increased risk for developing diabetes m ellitus. In diabetic patients, HbA1c goals should be discussed with healthcare provider. Specimen Anatomical Collection Method Collection Time Receive d Time (Source) Location / / Volume Laterality Blood (Blood, 09/28/2018 7:08 PM 09/28/19 19 7:27 Venous) IN SCHOOL SUSPENSION AIDE PM IN SCHOOL SUSPENSION AIDE Cintia Copeland M.D. LAB BLOOD ADD-ON Performing Organization Address City/State/ZIP Code Phon e Number [facility] [address] [place] [id number] [place] [facility] [facility] documented in this encounter Visit Diagnoses Diagnosis Diabetes Mellitus Type 2 With Diabetic N europathy (HCC) - Primary Anemia Iron Deficiency Blood Loss Chroni c Frequency Urinary Hypertension Essential Primary Herniated Disc Lumbar Screening Examination Prostate Cancer Diarrhea documented in this encounter Additional Health Concerns Assessment Noted Time PHQ-9 Depression Total Score: 18 02/14/2013 9:53 AM CD T documented as of this encounter Care Teams Weatherization Director Relationship Specialty Start Date End Date Cintia Bullock M.D. PCP - General 02/19/17 02/20/[address] [place] [phone] documented as of this encounter
--- OUTSIDE RECORDS SUMMARY | 2022-07-29 10:48 | XMS_ITS | Encounter Summary ---
:[address] [facility] Address [address] [place] [address] Care Team Providers Name Role Phone Cintia Cobb M.D. Primary Care Provider [phone] Reason for Visit Reason Comments Anemia Encounter Details Date Type Department Care Team Description 06/01/2018 Office Visit Department of [facility] Soumya Cobb Iron Deficiency Blood Loss Chronic (Primary Dx); Medicine, Jose Daniel Piper M.D. Chronic Or Unspecified Gastrojejunal Ulc er With Hemorrhage; [place] [address] Radiculo fabiana Lumbar; [facility] Somnolence [address] [address] [place], [place] [phone] (Work) [phone] Social History Tobacco Use Types Packs/Day Years Used Date Smoking Tobacco: Never Smokeless Tobacco: Never Alcohol Use Standard Drinks/Week Comments No 0 (1 standard drink = 0.6 oz pure alcoho l) Sex Assigned at Date Recorded Not on file documented as of this encounter Last Filed Vital Signs Vital Sign Reading Time Taken Comments Blood Pressure 139/91 06/01/2018 6:27 PM CDT Pulse 80 06/01/2018 6:27 PM CDT Temperature - - Respiratory Rate - - Oxygen Saturation 100% 06/01/2018 6:27 PM CDT Inhaled Oxygen Concentration - - Weight - - Height - - Body Mass Index - - documented in this encounter Progress Notes Cintia Cobb M.D. - 06/01/2018 6:30 PM CDT CHIEF COMPLAINT / REASON FOR VISIT Ed Cuauhtemoc Luna is a 57 y.o. male who presents for evaluation of Anemia. HISTORY OF PRESENT ILLNESS Ed presents today for a follow-up. He reports that his leg is feeling about the same. He states thathis back will occasionally have dull aches. He states that there is no definite triggers to his pain. He will be seeing the equipment sales specialist next week. His stomach is starting to feel funny again after eating. He believes that he might have black or bloody stools but he isn't certain as he doesn't pay attention. He is taking the omeprazole once daily.Energy is low. He notes that he continues to fall asleep after eating. He reports that sometimes he would fall asleep on his recliner for about 2 hours and then would wake up and isn't able to fall back asleep. 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 Brief Review of Systems: A brief review [...] Influenzae GI intolerance Diarrhea PHYSICAL EXAM BP (!) 139/91 (BP Location: Left arm, Patient Position: Sitting, Cuff Size: Regular) Pulse 80 SpO2 100% There is no height or weight on file to calculate BMI. General: Alert and oriented. No acute distress. Neck: Supple. No lymphadenopathy. No carotid bruits. Cardiovascular exam: Regular rate and rhythm. Normal S1 and S2. No murmurs, rubs, or gallops. Lungs: Clear to auscultation bilaterally. Extremities: No pedal edema. DIAGNOSTICS Recent Results (from the past 24 hour(s)) Hemoglobin Collection Time: 06/01/18 7:07 PM Result Value Hemoglobin 7.8 (L) ASSESSMENT/PLAN: #1 Anemia Iron Deficiency Blood Loss Chronic #2 Chronic Or Unspecified Gastrojejunal Ulcer With Hemorrhage Recheck of hemoglobin is a little lower. Increase dose of omeprazole to bid and can take zantac as needed. Ferritin level pending. If this is low, will consider iron infusion. Will need close monitoring of hemoglobin. #3 Radiculopathy Lumbar Symptoms are stable. He will see orthopedics next week. #4 Somnolence Discussed erratic schedule. Brainstormed possible solutions with patient, but the patient does not want to do anything at this time. Discussed increasing activity and having a more consistent sleep schedule. Recommended that he try melatonin. By signing my name below, I, Jonah Valiente, attest that this documentation has been prepared under the direction and in the presence of Dr. Cintia Copeland M.D. Electronically Signed: lidia Brower. 06/01/2018. 7:01 PM . Cintia Contreras M.D., personally performed the services described in this documentation.All medical record entries made by the scribe were at my direction and in my presence. I have reviewed the chart and discharge instructions (if applicable) and agree that the record reflects my personal performance and is accurate and complete. Cintia Copeland M.D. . 06/01/2018. 10:54 PM. documented in this encounter Plan of Treatment Not on filedocumented as of this encounter Procedures Procedure Name Priority Date/Time Associated Diagnosis Comme nts HEMOGLOBIN, B Routine 06/01/2018 7:07 PM Anemia Iron Results for this CDT Deficiency Blood Loss proced ure are in the Chronic results section . FERRITIN, S Routine 06/01/2018 7:07 PM Anemia Iron Results f or this CDT Deficiency Blood Loss proced ure are in the Chronic results section . documented in this encounter Results Ferritin (06/01/2018 7:07 PM CDT) athologist Signature Ferritin, S 33 30 - 400 06/02/2018 [facility] mcg/L 2:25 PM CDT [facility] Comment: Biotin has been identified by the [facility] as a potential interfering substance. ??Higher concentr ations of biotin may be found in multivitamins, hair/nail supple ments, and workout supplements. ??If the result does not ma [facility] clinical observations, repeat testing after patient refrains fr om the use of supplements for at least 12 hours. Specimen Anatomical Collection Method Collection Time Receive d Time (Source) Location / / Volume Laterality Blood (Blood, 06/01/2018 7:07 PM 06/02/20 18 1:59 Venous) CDT PM CDT Cintia Copeland M.D. LAB BLOOD ADD-ON Performing Organization Address City/State/ZIP Code Phon e Number [facility] [address] [place] [address] [place] [facility] (ABNORMAL) Hemoglobin (06/01/2018 7:07 PM CDT) athologist Signature Hemoglobin 7.8 (L) 13.2 - 16.6 06/01/2018 [facility] g/dL 7:17 PM CDT [facility] Specimen Anatomical Collection Method Collection Time Receive d Time (Source) Location / / Volume Laterality Blood (Blood, 06/01/2018 7:07 PM 06/01/20 18 7:09 Venous) CDT PM CDT Cintia Copeland M.D. LAB BLOOD ADD-ON Performing Organization Address City/State/ZIP Code Phon e Number [facility] [address] [place] [address], [place] [address] [place] documented in this encounter Visit Diagnoses Diagnosis Anemia Iron Deficiency Blood Loss Chroni c - Primary Chronic Or Unspecified Gastrojejunal Ulc er With Hemorrhage Radiculopathy Lumbar Somnolence documented in this encounter Additional Health Concerns Assessment Noted Time PHQ-9 Depression Total Score: 18 02/14/2013 9:53 AM CD T documented as of this encounter Care Teams Retirement Plan Specialist Relationship Specialty Start Date End Date Cintia Cobb M.D. PCP - General 02/19/17 02/20/[id number] [phone] documented as of this encounter
--- OUTSIDE RECORDS SUMMARY | 2022-07-29 10:48 | XMS_ITS | Encounter Summary ---
:1960 Author Organization [facility] Address [address] [place] [address] Care Team Providers Name Role Phone Cintia Cobb M.D. Primary Care Provider [phone] Reason for Visit Auth/Cert Specialty Diagnoses / Procedures Referred By Contact Refer red To Contact Diagnoses Pain Joint Fracture Hip Closed Initial Left (HCC) Hip Fracture Procedures n/a Referral ID Status Reason Start Date Expiration Date Visits Requ ested Visits Authorized [id number] 1 1 Encounter Details Date Type Department Care Team Description 08/13/2019 Anesthesia Event [facility] MAIN OR Billy Luna, Suraj SAL WAN PORTAL DEVELOPER, ABALONE DIVER [place], [place] [address] [facility] [phone] [place] [address] Anesthesia Record Procedure Summary Procedure Name Responsible Anesthesia Start Anesthesia Stop Time Anesthesiologist Time OPEN REDUCTION Billy Luna APRN, 08/13/19 0707 08/13 0901 INTERNAL FIXATION ABALONE DIVER LEFT FEMUR (Left: Hip) Events Date Time Event Comment 08/13/2019 0617 0707 An Start Machine/Equipmen t Checked Infection Precautions Foll owed Procedure/Site Verified NPO Sta tus Verified Supine Standard ASA Mon itors Applied 0707 In Room 0727 Turnover to Proceduralist 0748 Proc Start 0857 Turnover to ANE Staff 0857 an stop data 0901 An End I completed my h andoff to the receiving staff during [facility] we 1. Identified the patient 2. Ident ified the responsible provider 3. Revi ewed the pertinent medical history 4. Discu ssed the surgical course 5. Reviewed intra-o p anesthesia management and issues during an esthesia 6. Set expectations for post-procedure period 7. Allowed opportun ity for questions and acknowledgement of understanding. 09 Proc Fin 902 Out of Room Name Total midazolam 1 mg/mL injection 2 mg fentaNYL PF injection 50 mcg/mL 100 mcg propofol 10 mg/mL infusion 277.43 mg ceFAZolin in NaCl 0.9 % IVPB 2 g (ANCEF) 2 g bupivacaine PF 0.5% injection 2.4 mL ondansetron PF 4 mg/2 mL injection 4 mg Lactated Ringers Free Drip 700 mL Agents No agents on file. Blood No blood administrations on file. Lines, Drains, and Airways Type Details Placement Removal Peripheral IV Placement Date: 08/12/19; 08/12/19 1003 by 06/21 0000 by Placement Time: 1003; Maricel Chu, REmir Levi, R.N. Catheter Size: 20 G; Orientation: Left; Location: Forearm; Site Prep: Chlorhexidine (Preferred); Technique: Anatomical landmarks; Inserted by: sbberyl; Insertion Attempts: 1; Removal Date: 06/21/22; Removal Reason: No longer in place (RETIRED) Incision 08/13/19; 0848; Hip; 08/13/19 0848 by 1 1418 by Left; Eric Lakhani R.N. [facility] ic-Backgroun chapis; 05/28/21 d, Scheduling (Removed by background Automated Batch Job completion utility); 1418 (Removed by background completion utility) documented in this encounter Social History Tobacco Use Types Packs/Day Years Used Date Smoking Tobacco: Never Smokeless Tobacco: Never Alcohol Use Standard Drinks/Week Comments No 0 (1 standard drink = 0.6 oz pure alcoho l) Sex Assigned at Date Recorded Not on file documented as of this encounter OR Notes Anesthesia Postprocedure Evaluation - Billy Luna CRNA, R.N. - 08/13/2019 10:08 AM CST Patient: Laz Luna Procedure Summary Date: 08/13/19 Room / Location: [address] 0398 / [facility] - GI Anesthesia Start: 706 Anesthesia Stop: 900 Procedure: OPEN REDUCTION INTERNAL FIXATION LEFT FEMUR (Left Hip) Diagnosis: Fracture Hip Intertrochanteric Closed Initial Left (HCC) (Fracture Hip Intertrochanteric Closed Initial Left (HCC) [S72.142A]) Surgeon: John Norman M.D. Responsible Provider: Billy Luna CRNA, R.N. Anesthesia Type: regional ASA Status: 3 - Emergent Anesthesia Type: regional Last vitals Vitals Value Taken Time BP 121/74 08/13/2019 9:45 AM Temp 36.6 ??C 08/13/2019 9:45 AM Pulse 60 08/13/2019 9:45 AM Resp 12 08/13/2019 9:45 AM SpO2 99 % 08/13/2019 9:45 AM Please reference Vitals flowsheet for most recent vital signs. Anesthesia Post Evaluation Patient Disposition: general care unit Cardiovascular status: hemodynamics (HR & BP) acceptable Respiratory status: patent airway with spontaneous effort Temperature: normothermic Oxygen requirements: room air Level of consciousness: awake Pain score: pain adequately controlled and/or at baseline Post Op nausea/vomiting: none Hydration status: euvolemic PUMP OPERATOR Anesthesia Procedure Notes - Billy Luna CRNA RKevin. - 08/13/2019 7:40 AM CSTAssociated Order(s): Regional Block Regional Block Date/Time: 08/13/2019 7:24 AM Performed by: Billy Luna CRNA RAugustine Authorized by: Billy Luna CRNA, R.N. Location: OR PROCEDURE DETAILS: Block type: primary anesthetic Neuraxial: spinal Positioning: lateral (right) Approach: midline Level inserted: L4-5 Injection technique: single injection Needle type: sprotte Gauge: 24G Length: 10 CSF: yes Pain with needle advancement or injection of local anesthetic: no UNIVERSAL PROTOCOL All relevant documentation and testing were reviewed and available. All required blood products, implants, devices and or special equipment were made available as applicable. Pre-procedure verificationwas conducted and the correct site was marked if required. A fire risk assessment was done as applicable. The procedural time-out was conducted prior to performing the procedure and confirmed in a procedural pause. PRE-PROCEDURE DETAILS: Appropriate hand hygiene, gown, cap, mask, protective eyewear, sterile gloves, skin preparation, sterile drape, and strict aseptic technique were utilized as applicable for the procedure.: yes Skin prep: chlorhexidine SEDATION / ANESTHESIA Anesthesia method: local infiltration POST-PROCEDURE DETAILS: Procedure completed successfully: successful procedure Other complications: none PUMP OPERATOR Anesthesia Preprocedure Evaluation - Billy Luna CRNA, R.N. - 08/13/2019 6:16 AM CST Preprocedure Anesthesia & H&P Assessment Procedure Summary Date/Time: 08/13/19 0700 Procedure: OPEN REDUCTION INTERNAL FIXATION LEFT FEMUR (Left ) Diagnosis: Fracture Hip Intertrochanteric Closed Initial Left (HCC) [S72.142A] Pre-op diagnosis: Fracture Hip Intertrochanteric Closed Initial Left (HCC) [S72.142A] Location: [address] 7813 / [facility] - GI Surgeon: John Norman M.D. Pertinent components of the patient's history including current problem list, medical history, surgical history, family history, social history, medications and allergies were reviewed. Present illnessand pre-op diagnosis were confirmed. The planned surgery / procedure was verified with the patient /legal guardian. 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 (+) Wart Genital Other (+) Fracture Hip Closed Initial Left (HCC) (+) Fracture Hip Intertrochanteric Closed Initial Left (HCC) (+) Tinea Pedis (+) Wound Toe Without Damage To Nail Open Subsequent OBJECTIVE PHYSICAL EXAMINATION Airway (HEENT) Mallampati: III TM Distance: >3 FB Neck ROM: Full Mouth Opening: >3 cm Upper Lip Bite Test Class: I Cardiovascular Rhythm: Regular Rate: Normal Cardiovascular Assessment: cardiovascular normal Functional Capacity: >4 METS Pulmonary Pulmonary Assessment: Clear General / Constitutional Constitutional Assessment: Normal General State of Health:: healthy appearing and calm Neurological Normal Dental Normal ASSESSMENT / PLAN ANESTHESIA PLAN ASA: 3 - Emergent Anesthesia Plan: regional Patient seen and allergies reviewed, anesthesia plan and risks discussed directly with patient /legal guardian or through an clinical pharmacist. Risks/Benefits/Alternatives of Blood transfusion discussed with patient / legal guardian, including an opportunity to ask questions and/or decline some or all transfusion therapies. The patient / legalguardian consented to the use of all blood products, as deemed medically necessary Approval to Proceed: approved for anesthesia Pt wishes to keep DNR status in place intra op. Discussed with pt that DNR will be honored and DNI will only be removed if ETT is needed to administer GA due to failed or unsuccessful spinal placement. PUMP OPERATOR documented in this encounter Plan of Treatment Not on filedocumented as of this encounter Procedures Procedure Name Priority Date/Time Associated Comments Diagnosis ANESTHESIA REGIONAL Routine 08/13/2019 7:40 AM Re sults for this BLOCK ACID PUMP OPERATOR procedure are i n the results section. documented in this encounter Results Regional Block (08/13/2019 7:40 AM ACID PUMP OPERATOR) Narrative Billy Luna CRNA RPiliN. - 2018 7:40 AM ACID PUMP OPERATOR Billy Luna CRNA, R.N. ? 08/13/2019 ??7:41 AM Regional Block Date/Time: 08/13/2019 7:24 AM Performed by: Billy Luna CRNA RAugustine Authorized by: Billy Luna CRNA, R.N. Location: OR PROCEDURE DETAILS: Block type: primary anesthetic ?? Neuraxial: spinal ?? Positioning: lateral (right) ?? Approach: midline Level inserted: L4-5 Injection technique: single injection Needle type: sprotte Gauge: 24G Length: 10 CSF: yes ??Pain with needle advancement or injection of local anesthetic: no ?? UNIVERSAL PROTOCOL All relevant documentation and testing w ere reviewed and available. All required blood products, implants, devic es and or special equipment were made available as applicable. Pre-proced ure verification was conducted and the correct site was marked if required. A fire risk assessment was done as applicable. The procedural time-out w as conducted prior to performing the procedure and confirmed in a procedu ral pause. PRE-PROCEDURE DETAILS: ?? Appropriate hand hygiene, gown, cap, mas k, protective eyewear, sterile gloves, skin preparation, sterile drape, and strict aseptic technique were utilized as applicable for the procedure .: yes ?? Skin prep: chlorhexidine SEDATION / ANESTHESIA Anesthesia method: local infiltration POST-PROCEDURE DETAILS: Procedure completed successfully: succes sful procedure Other complications: none Billy Luna APRN, LUZMA PROCEDURE/MINOR SURGICAL ORDERABLES documented in this encounter Visit Diagnoses Not on filedocumented in this encounter Administered Medications Inactive Administered Medications - up to 3 most recent administrations Medication Order MAR Action Action Date Dose Rate Site bupivacaine PF 0.5 % (5 mg/mL) Given 08/13/2019 7:24 AM ACID PUMP OPERATOR 2.4 mL injection (MARCAINE) As needed, Starting on 08/13/19 at 0724, Anesthesia Intra-op ceFAZolin in NaCl 0.9 % IVPB 2 g (ANCEF) Given 08/13/2019 7:27 AM ACID PUMP OPERATOR 2 g 2 g (rounded from 2.0825 g = 25 mg/kg ? 83.3 kg), intravenous, at 220 mL/hr, Administer over 30 Minutes, Once, On Thu08/12/19 at 1245, For 1 dose, Intra-Op, Preoperatively within 1 hour prior to surgical incision premix bag, Drug Monitoring Program: Pharmacist to adjust medication dosing based on indication and drug clearance factors., Indications: Prophylaxis, surgical fentaNYL injection (SUBLIMAZE) Given 08/13/2019 7:13 AM ACID PUMP OPERATOR 50 mcg intravenous, As needed, Starting on 08/13/19 at 0707, Anesthesia Intra-op Given 08/13/2019 7:07 AM ACID PUMP OPERATOR 50 mcg lactated ringers New Bag 08/13/2019 7:07 AM ACID PUMP OPERATOR intravenous, Continuous Infusion: Per Instructions PRN, Starting on 08/13/19 at 0707, Anesthesia Intra-op midazolam (PF) injection (VERSED) Given 08/13/2019 7:13 AM ACID PUMP OPERATOR 1 mg intravenous, As needed, Starting on 08/13/19 at 0707, Anesthesia Intra-op Given 08/13/2019 7:07 AM ACID PUMP OPERATOR 1 mg ondansetron (PF) injection (ZOFRAN) Given 08/13/2019 7:35 AM ACID PUMP OPERATOR 4 mg As needed, Starting on 08/13/19 at 0735, Anesthesia Intra-op propofol 10 mg/mL infusion Rate/Dose 08/13/2019 8:34 25 mcg/kg/min 1 2.2 mL/hr (DIPRIVAN) Change AM ACID PUMP OPERATOR intravenous, Continuous Infusion: Per Instructions PRN, Starting on 08/13/19 at 0730, Anesthesia Intra-op New Bag 08/13/2019 7:30 AM ACID PUMP OPERATOR 50 mcg/kg/min 24.3 mL/hr documented in this encounter Additional Health Concerns Assessment Noted Time PHQ-9 Depression Total Score: 18 02/14/2013 9:53 AM CD T documented as of this encounter Care Teams Loss Claim Clerk Relationship Specialty Start Date End Date Cintia Cobb M.D. PCP - General 02/19/17 02/20/[address] [phone] documented as of this encounter
--- OUTSIDE RECORDS SUMMARY | 2022-07-29 10:48 | XMS_ITS | Encounter Summary ---
:1960 Author Organization [facility] Address [address] [place] [address] Care Team Providers Name Role Phone Cintia Cobb M.D. Primary Care Provider [phone] Encounter Details Date Type Department Care Team Description 06/03/2018 Orders Only Department of [facility] Terri Cobbbetes Mellitus Type MedicineJose Daniel M.D. 2 (HCC) (Primary Dx) [facility], in [address] [place] [address] [place], [place] [phone] (W ork) [address] [phone] Social History Tobacco Use Types Packs/Day Years Used Date Smoking Tobacco: Never Smokeless Tobacco: Never Alcohol Use Standard Drinks/Week Comments No 0 (1 standard drink = 0.6 oz pure alcoho l) Sex Assigned at Date Recorded Not on file documented as of this encounter Plan of Treatment Not on filedocumented as of this encounter Visit Diagnoses Diagnosis Diabetes Mellitus Type 2 (HCC) - Primary documented in this encounter Additional Health Concerns Assessment Noted Time PHQ-9 Depression Total Score: 18 02/14/2013 9:53 AM CD T documented as of this encounter Care Teams Gathering Machine Setter Relationship Specialty Start Date End Date Cintia Cobb M.D. PCP - General 02/19/17 02/20/[address] [place] [phone] documented as of this encounter
--- OUTSIDE RECORDS SUMMARY | 2022-07-29 10:48 | XMS_ITS | Encounter Summary ---
:1960 Author Organization [facility] Address [address] [place] [address] Care Team Providers Name Role Phone Cintia Cobb M.D. Primary Care Provider [phone] Encounter Details Date Type Department Care Team Description 05/31/[address] [facility] First S, M.D. Floor [address] [phone] (Wo rk) Social History Tobacco Use Types [...] documented as of this encounter Care Teams Manugrapher Relationship Specialty Start Date End Date Cintia Cobb M.D. PCP - General 02/19/17 02/20/[phone] [place] [phone] documented as of this encounter
--- OUTSIDE RECORDS SUMMARY | 2022-07-29 10:48 | XMS_ITS | Encounter Summary ---
:1960 Author Organization [facility] Address [address] [place] [address] Care Team Providers Name Role Phone Cintia Cobb M.D. Primary Care Provider [phone] Encounter Details Date Type Department Care Team Description 05/27/2019 Clinical Communication Department [facility], Jose Daniel Piper M.D. [address] [address] [place], [place] [phone] (Work) [phone] Social History Tobacco Use Types Packs/Day Years Used Date Smoking Tobacco: Never Smokeless Tobacco: Never Alcohol Use Standard Drinks/Week Comments No 0 (1 standard drink = 0.6 oz pure alcoho l) Sex Assigned at Date Recorded Not on file documented as of this encounter Miscellaneous Notes Telephone Encounter - Keyla Evangelista - 05/30/2019 10:38 AM CDT Tried to contact patient's . Unable to leave voicemail. Telephone Encounter - Cintia Cobb M.D. - 05/28/2019 12:22 PM CDT Labs ordered for patient. Please call to schedule. Thanks, Cintia Telephone Encounter - Dilcia rucker Violette - 05/27/2019 11:54 AM CDT Pt's called in to see if Dr. Duncan Copeland wants to order any labs for him. She is coming in on Thursday for labs for herself and is wondering if Ed should get any done. Please follow up with her at [phone]. Thank you documented in this encounter Plan of Treatment Not on filedocumented as of this encounter Results (ABNORMAL) Vitamin B12 Assay (12/18/2020 7:49 PM CDT) [facility] At [facility] Time Signature Vitamin B12 >2000 (H) 232 - 1245 12/19/2020 ECLR Assay, S ng/L 4:15 PM CDT Comment: Biotin has been identified by the [facility] as a potential interfering substance. ??Higher concentr ations of biotin may be found in multivitamins, hair/nail supple ments, and workout supplements. ??If the result does not [facility] clinical observations, repeat testing after patient refrains fr om the use of supplements for at least 12 hours. Specimen Anatomical Collection Method Collection Time Receive d Time (Source) Location / / Volume Laterality Blood (Blood, 12/18/2020 7:49 PM 12/20/19 2:59 Venous) CDT PM CDT Cintia Copeland M.D. LAB BLOOD ADD-ON Performing Organization Address City/State/ZIP Code Phon e Number [facility]- [address] [place] [address] [facility] [place] [address] System in [address] documented in this encounter Visit Diagnoses Diagnosis Diabetes Mellitus Type 2 With Diabetic N europathy (HCC) - Primary Hypertension Essential Primary Anemia Gastric Bypass Status Post documented in this encounter Additional Health Concerns Assessment Noted Time PHQ-9 Depression Total Score: 18 02/14/2013 9:53 AM CD T documented as of this encounter Care Teams Rotary Veneer Machine Operator Relationship Specialty Start Date End Date Cintia Cobb M.D. PCP - General 02/19/17 02/20/[address] [phone] documented as of this encounter
--- OUTSIDE RECORDS SUMMARY | 2022-07-29 10:48 | XMS_ITS | Encounter Summary ---
:1960 Author Organization [facility] Address [address] [place] [address] Care Team Providers Name Role Phone Cintia Cobb M.D. Primary Care Provider [phone] Encounter Details Date Type Department Care Team Description 02/25/[address] [facility] Pharm[facility] - Edita El D.O. [address] , [facility] [address] [place] [phone] [place] [address] (Wo rk) Social History Tobacco Use Types [...] documented as of this encounter Care Teams Process Consultant Relationship Specialty Start Date End Date Cintia Cobb M.D. PCP - General 02/19/17 02/20/[address] [phone] documented as of this encounter
--- OUTSIDE RECORDS SUMMARY | 2022-07-29 10:48 | XMS_ITS | Encounter Summary ---
:1960 Author Organization [facility] Address [address] [place] [address] Care Team Providers Name Role Phone Cintia Cobb M.D. Primary Care Provider [phone] Reason for Visit Reason Comments Med Refill Encounter Details Date Type Department Care Team Description 09/30/2018 Refill Department of [facility] Angélica Cobb Med Refill Medicine, Jose Daniel Piper M.D. [facility], in [address] [address] [place], [place] [address] [phone] Social History Tobacco Use Types Packs/Day Years [...] documented as of this encounter Care Teams Automotive Salesperson Relationship Specialty Start Date End Date Cintia Cobb M.D. PCP - General 02/19/17 02/20/[address] [place] [phone] documented as of this encounter
--- OUTSIDE RECORDS SUMMARY | 2022-07-29 10:48 | XMS_ITS | Encounter Summary ---
:1960 Author Organization [facility] Address [address] [place] [address] Care Team Providers Name Role Phone Cintia Cobb M.D. Primary Care Provider [phone] Reason for Visit Reason Comments Med Refill Encounter Details Date Type Department Care Team Description 06/20/2019 Refill Department of [facility] Angélica Cobb Med Refill Medicine, Badin Keely Piper [facility], in [address] [place] [phone] Social History Tobacco Use Types Packs/Day Years Used Date Smoking Tobacco: Never Smokeless Tobacco: Never Alcohol Use Standard Drinks/Week Comments No 0 (1 standard drink = 0.6 oz pure alcoho l) Sex Assigned at Date Recorded Not on file documented as of this encounter Miscellaneous Notes Telephone Encounter - Laura Mejia RAugustine - 2019 6:31 AM CDT LV 09/28/18 LF Furosemide 06/01/18 qty 90 refills 3 Vitamin B12 06/01/18 3 kit refills 3 Allopurinol 06/01/18 qty 90 refills 3 Changed pended refills to qty 90 refills 0 which would get him to 12 months from last visit documented in this encounter Plan of Treatment Not on filedocumented as of this encounter Visit Diagnoses Not on filedocumented in this encounter Additional Health Concerns Assessment Noted Time PHQ-9 Depression Total Score: 18 02/14/2013 9:53 AM CD T documented as of this encounter Care Teams Wire Strander Relationship Specialty Start Date End Date Cintia Cobb M.D. PCP - General 02/19/17 02/20/[address] [place] [phone] documented as of this encounter
--- OUTSIDE RECORDS SUMMARY | 2022-07-29 10:48 | XMS_ITS | Encounter Summary ---
:1960 Author Organization [facility] Address [address] [place] [address] Care Team Providers Name Role Phone Cintia Cobb M.D. Primary Care Provider [phone] Reason for Visit Reason Onset Date Comments Communication 09/29/2018 Encounter Details Date Type Department Care Team Description 09/29/2018 Clinical Communication Department of [facility] Medicine, Cintia [facility], in S, RaysaD. [address] [phone] Social History Tobacco Use Types Packs/Day Years Used Date Smoking Tobacco: Never Smokeless Tobacco: Never Alcohol Use Standard Drinks/Week Comments No 0 (1 standard drink = 0.6 oz pure alcoho l) Sex Assigned at Date Recorded Not on file documented as of this encounter Miscellaneous Notes Telephone Encounter - Laura Mejia R.N. - 09/30/2018 11:48 AM RN TELE Pharmacy contacted and updated directions given. TELE Telephone Encounter - Emelia Ackerman - 09/30/2018 11:39 AM CST Pharmacy is stating that they did not receive the new script with updated directions. Please send again. TELE Telephone Encounter - Laura Mejia R.N. - 09/30/2018 10:17 AM RN TELE Pharmacy notified that a new script has been sent with updated directions. TELE Telephone Encounter - Cintia Cobb M.D. - 09/30/2018 10:14 AM RN TELE I attempted to remove the directions of bid. It should be daily for life. Cintia Segura TELE Telephone Encounter - Laura Mejia R.N. - 09/29/2018 3:43 PM CST Unable to review 09/28/18 visit note, not yet completed. Pharmacy states the instructions state once daily (script refilled as once daily), but then additional instructions state BID for an indefinite amount of time. Please advise. Juan drug will need updated directions. TELE Telephone Encounter - Eli Armstrong - 09/29/2018 3:28 PM CST [facility] in [place] called to clarify RX sent for Ed from Dr Song, please call them at [phone] TELE documented in this encounter Plan of Treatment Not on filedocumented as of this encounter Visit Diagnoses Not on filedocumented in this encounter Additional Health Concerns Assessment Noted Time PHQ-9 Depression Total Score: 18 02/14/2013 9:53 AM CD T documented as of this encounter Care Teams Electronic Prepress System Operator Relationship Specialty Start Date End Date Cintia Cobb M.D. PCP - General 02/19/17 02/20/[address] [phone] documented as of this encounter
--- OUTSIDE RECORDS SUMMARY | 2022-07-29 10:48 | XMS_ITS | Encounter Summary ---
:1960 Author Organization [facility] Address [address] [place] [address] Care Team Providers Name Role Phone Cintia Cobb M.D. Primary Care Provider [phone] Reason for Visit Auth/Cert Specialty Diagnoses / Procedures Referred By Contact Refer red To Contact Diagnoses Pain Joint Fracture Hip Closed Initial Left (HCC) Hip Fracture Procedures n/a Referral ID Status Reason Start Date Expiration Date Visits Requ ested Visits Authorized [id number] 1 1 Encounter Details Date Type Department Care Team Description 08/13/2019 Surgery [facility] MAIN OR John Norman, OPEN REDUCTION INTERNAL [address] [place]. [place] [address] [address] [phone] [place] [address] (Wo rk) Social History Tobacco Use Types Packs/Day Years Used Date Smoking Tobacco: Never Smokeless Tobacco: Never Alcohol Use Standard Drinks/Week Comments No 0 (1 standard drink = 0.6 oz pure alcoho l) Sex Assigned at Date Recorded Not on file documented as of this encounter Last Filed Vital Signs Vital Sign Reading Time Taken Comments Blood Pressure 121/74 08/13/2019 4:18 AM INTERNET ASSESSOR Pulse 63 08/13/2019 4:18 AM INTERNET ASSESSOR Temperature 37.2 ??C (99 ??F) 08/13/2019 4:18 AM INTERNET ASSESSOR Respiratory Rate 18 08/13/2019 4:18 AM INTERNET ASSESSOR Oxygen Saturation 97% 08/13/2019 4:18 AM INTERNET ASSESSOR Inhaled Oxygen Concentration - - Weight 81 kg (178 lb 9.2 oz) 08/13/2019 4:31 AM INTERNET ASSESSOR Height 182.9 cm (6') 08/12/2019 12:43 PM INTERNET ASSESSOR Body Mass Index 23.98 08/12/2019 12:43 PM INTERNET ASSESSOR documented in this encounter Discharge Summaries Laz Dumont M.D. - 08/16/2019 12:00 PM CST DISCHARGE SUMMARY BRIEF OVERVIEW Discharge Provider: Lza Dumont M.D. Primary Care Providers: Cintia Cobb M.D. ([address] [address] Primary Care Provider Primary Care Provider Other [...] INTERNAL FIXATION LEFT FEMUR John Norman M.D. 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 Had surgery for repair on August 13 by doctor Ester. ?? August 14- slow to rehab August 15- slower to rehab Aug 10- walked slowly on the level and up [...] and needs to get back to driving [employer] a soon as possible to help with [...] 45 minutes discharge care by me today RNET ASSESSOR documented in this encounter Discharge Instructions Discharge Instr - Non Parish Mmcmuo-VzrQixhok-Qlmnoxcgll, Becky - 08/16/2019 12:01 PM CST Please have Patient seen by PCP on rounds in 3-5 days. RNET ASSESSOR documented in this encounter Medications at Time [...] L hip fx Onset Date: 08/12/19 Payor: [facility] [place] CARE / Plan: [facility] kubo financiero HMO / Product Type: Medicaid HMO / [...] Activity Level: Answer: Up with Assistance 08/12/19 0634 OBJECTIVE Pain Assessment Pain Score: (not rated [...] min Functional G-code Worksheet Marya Paredes P.T.A. [facility], Third Floor [address] [facility] [address] Dept: [phone] RNET ASSESSOR Associated attestation - Stephanie Diaz P.T. - 08/18/2019 7:58 AM INTERNET ASSESSOR Physical Therapy Dismissal Snapshot Patient was seen 3 visit(s) for gait training, WBAT after hip fracture and repair. Inpatient goals: partially met Please see last progress note for status. Patient to dismiss to transitional care facility to address remaining impairments of range of motion, strength, and pain, and mobility deficits of transfers and gait. Ml Ha L.S.W. - 08/16/2019 10:00 AM CST S: OMAR consulted with Nurse Levar, and Dr. Dumont. OMAR confirmed with [facility] that thereare no beds today. OMAR met with Ed and discussed that it [...] to go to short term rehab at [address] [place] [address] in [place] today. Ed contacted his , Julissa and confirmed that his friend can not transport until 3pm or later. SWS spoke with [facility]/[address] [place] [address] admissions and confirmed discharge today, by 12noon. Nurse Levar completed the Nurse to Nurse. SWS contacted [facility] and [facility] and they both are not available for transport today. SWS contacted [employer] and set up 12noon to transport. O: Discharge Planning for today to arrive no later than 3pm to [address] [place] [address] A: Ed was fully engaged in our conversation and open to going to a SNF upon discharge to decrease the time he is away from work for recovery. P: Discharge today - RNET ASSESSOR Dumont, Laz Oakes M.D. 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 Patient definitely not interested in a retirement after hospitalization, particularly with experiences his mother had in group home facilities. Ed used a [employer] in [place] to start letter correspondences with dozens of Filipina women around 2003. Julissa, his , is from [facility] near active [facility], [facility] 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 Had surgery for repair on August 13 [...] help I still recommend it. He skipped O87saxgk last few months (thinks they cause diarrhea [...] he makes big strides he likely needs group home help. He is not open to discussing this and fired the director of social services today.(he fired me over a similar issue [...] care. Spoke with nurse, PT, social work. RNET ASSESSOR Marya Paredes P.T.A. - 08/15/2019 11:26 AM CST Physical Therapy Inpatient Treatment SUBJECTIVE Patient's Name: Laz Cuauhtemoc Luna Referring/Attending Provider: Rahel Ashby M.D. Medical Diagnosis: Pain Joint [M25.50] Fracture Hip Closed Initial Left (HCC) [S72.002A] Reason for Referral: L hip fx Onset Date: 08/12/19 Payor: [employer] [place] CARE / Plan: [facility] BLUE [employer] HMO / Product Type: Medicaid HMO / [...] in use of gait belt as leg education consultant to assist left LE to edge of [...] min Functional G-code Worksheet Marya Paredes P.T.A. [facility], [facility], Third Floor [address] [facility] [address] Dept: [phone] RNET ASSESSOR Ml Ha L.S.W. - 08/15/2019 11:10 AM [...] SWS passed this information onto Hillary Sotomayor/Nurse Housing Assistant. SWS Shared with Ed that a person [...] that he is not interested in any retirement or and followed up with [address] [place] [address]/ Nathalia [phone]., Fax: [phone]. O: Discharge planning continued, Ed was sitting up in the chair and fully engaged in the conversation A: Ed enjoys sarcastic humor and consistent communication. Ed becomes frustrated if he feels he is being misinformed. P: Discharge likely tomorrow, per Dr. Dumont. Transport to be determined. RNET ASSESSOR Kacie Huerta APRN, C.N.P., D.N.P. - 08/15/2019 [...] aware. Will have him follow up in [place] with Orthopedics in 2 weeks. 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 Patient definitely not interested in a retirement after hospitalization, particularly with experiences his mother had in group home facilities. Ed used a [employer] in [place] to start letter correspondences with dozens of Filipina women around 2003. Julissa, his , is from [facility] near active [facility], [facility]). 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 Had surgery for repair on August 13 [...] prefers to do that at home. Says janeeginette restart. #5 Borderline glucose Hemoglobin A1c 5.7% on [...] with patient, 2 visits so far today. RNET ASSESSOR Lacie Donaldson P.Randy. - 08/13/2019 12:48 PM CST Attempted to get patient up today. Patient continues to have numbness in legs. Will wait to start PTtomorrow 08/14/19. RNET ASSESSOR Alyssa Shepherd O.T. - 08/13/2019 11:43 AM [...] mg (LOVENOX) 08/14/2019 40 mg, subcutaneous, Daily RNET ASSESSOR documented in this encounter H&P Notes John [...] precede with surgical treatment. John Norman M.D. RNET ASSESSOR Source Note - Juliette Bettencourt APRN, C.N.P., D.N.P. - 08/12/2019 2:22 PM INTERNET ASSESSOR SUBJECTIVE CHIEF COMPLAINT Mr. Laz Luna is a 59 y.o. male who presents with left hip pain. HISTORY OF PRESENT ILLNESS Patient transferred from [place] emergency room this afternoon. Patient works by [employer] and fell on ice while loading his [...] but plans on getting a ride to [facility] tomorrow. Patient scheduled for the following procedure: [...] Procedure: ESOPHAGOGASTRODUODENOSCOPY; Surgeon: Rene Carlson M.D.; Location: [facility] GI LAB ??? LAPAROSCOPIC ASSISTED [...] education level: None Occupational History ??? 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 Financial [...] on phone: None Gets together: None Attends confucianism service: None Active member of club or [...] labs, xray and diagnostics from admission and [place] ED. ASSESSMENT / PLAN #1 Fracture Hip [...] of plan of care, chart review, and hbjh-lu-mfnn interview. RNET ASSESSOR Juliette Bettencourt APRN, C.N.P., D.N.P. - 08/12/2019 2:22 PM CST SUBJECTIVE CHIEF COMPLAINT Mr. Laz Luna is a 59 y.o. male who presents with left hip pain. HISTORY OF PRESENT ILLNESS Patient transferred from [place] emergency room this afternoon. Patient works by [employer] and fell on ice while loading his [...] but plans on getting a ride to [facility] tomorrow. Patient scheduled for the following procedure: [...] Procedure: ESOPHAGOGASTRODUODENOSCOPY; Surgeon: Rene Carlson M.D.; Location: [facility] GI LAB ??? LAPAROSCOPIC ASSISTED [...] education level: None Occupational History ??? 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 Financial [...] on phone: None Gets together: None Attends confucianism service: None Active member of club or [...] labs, xray and diagnostics from admission and [place] ED. ASSESSMENT / PLAN #1 Fracture Hip [...] of plan of care, chart review, and bngj-yq-tzzu interview. RNET ASSESSOR documented in this encounter Consult Notes Alyssa [...] L hip fx Onset Date: 08/12/19 Payor: [employer] [facility] CARE / Plan: [facility] HMO / Product Type: Medicaid HMO / [...] Procedure: ESOPHAGOGASTRODUODENOSCOPY; Surgeon: Rene Carlson M.D.; Location: [facility] GI LAB ??? LAPAROSCOPIC ASSISTED - GASTRIC BYPASS N/A 11/21/2014 Laparoscopic assisted - Gastric bypass ??? OPEN REDUCTION INTERNAL FIXATION FEMUR Left 08/13/2019 Procedure: OPEN REDUCTION INTERNAL FIXATION LEFT FEMUR; Surgeon: John Norman M.D.; Location:[facility] OR ??? OTHER CONVERTED SHX (SEE COMMENT) N/A 01/19/2017 >Implantation of dual-chamber permanent pacemaker. ??? OTHER SURGICAL HISTORY cystoscopy ??? UPPER GASTROINTESTINAL ENDOSCOPY N/A 11/21/2014 Upper gastrointestinal endoscopy History of Present Illness: Patient slipped and fell on the ice. 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 [facility]'s 3-year data, as reported at [facility] 2017, indicates a cut off of 39.4 or greater in daily activity is a fair to good accurate prediction of discharge home. Source: AM-PAC ???6 -Clicks?? functional assessment scores predict acute care hospital discharge destination. Press Washer. 2014 May; 94 (9): 1252-61. 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 Currently, patient presents with impairments including R hip fx c ORIF completed 08/13/19 resulting in the following functional deficits: impaired ADL/IADL and functional/ADL transfers. Laz Luna is a 59 y.o. year old direct admit to [facility] following a fall on ice resulting in R hip fracture requiring ORIF completed 08/13/19, admission 08/12/19. Today, Mr. Laz Luna actively participated in education regarding regaining PLOF c basic ADL. Educated in WBAT status. Educatedin adaptive equipment for regaining self care independence. Reports has long air filler and long shoe horn at home from [...] like to get back to work in [employer], does state he would not be able [...] household tasks as needed and returning to workASA due to truck loan (loan without medical [...] toileting safety in a.m. Bathroom Safety Sheet [id number] provided as patient education with recommendations written [...] Daily Activities CMS Modifier: MARYJO Shepherd O.T. [facility], Third Floor [address] [facility] [address] Dept: [phone] RNET ASSESSOR Lacie Donaldson P.T. - 08/14/2019 10:45 AM CST Consults Physical Therapy Inpatient Evaluation/Treatment SUBJECTIVE Patient's Name: Laz Luna Referring/Attending Provider: Rahel Ashby M.D. Medical Diagnosis: Pain Joint [M25.50] Fracture Hip Closed Initial Left (HCC) [S72.002A] Reason for Referral: L hip fx Onset Date: 08/12/19 Payor: [employer] [facility] CARE / Plan: [employer] O / Product Type: Medicaid O / PERTINENT MEDICAL / SURGICAL HISTORY: Patient [...] Procedure: ESOPHAGOGASTRODUODENOSCOPY; Surgeon: Rene Carlson M.D.; Location: [facility] GI LAB ??? LAPAROSCOPIC ASSISTED - GASTRIC BYPASS N/A 11/21/2014 Laparoscopic assisted - Gastric bypass ??? OTHER CONVERTED SHX (SEE COMMENT) N/A 01/19/2017 >Implantation of dual-chamber permanent pacemaker. ??? OTHER SURGICAL HISTORY cystoscopy ??? UPPER GASTROINTESTINAL ENDOSCOPY N/A 11/21/2014 Upper gastrointestinal endoscopy History of Present Illness: Patient slipped and fell on the ice. 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 [facility], Third Floor [address] [facility] [address] Dept: [phone] RNET ASSESSOR Ml Ha L.S.W. - 08/12/2019 3:45 PM CST Discharge Planning Assessment SUBJECTIVE Referral Data Referral Source: Early Screen for Discharge Planning Referral Reason: (59 year old, Admit Diagnosis: Hip Fracture) Who was present during the interview?: Patient Bone Plant Supervisor Services Used: No Psychosocial assessment, Coping, adjustment [...] Patient Information Primary Caregiver: Self(Spouse Julissa h: [phone], c:[phone], supportive neighbors and friends) Legal Information Legal [...] to transport upon discharge) Finance/Insurance Primary insurance: BCBS BLUE PLUS HMO Secondary insurance: N/A Does the Patient have [...] the basement) Support Systems: (Spouse Julissa h: [phone], c:[phone], supportive neighbors and friends) Anticipated Discharge Destination: [facility] or Intermediate Care Facility Recommended Discharge [...] he could likely do outpatient PT in [place] at [address] [place] [address], if he would prefer a location closer than [place]. He stated that he may prefer to stay in the [facility] and [place] is the closest. He stated that he is open to [facility] sending a referral to [address] [place] [address] to determine if they have the ability to do outpatient PT for him or any other services. SWS received notice from [address] [place] [address] has accepted him for admission for short term rehab. SWS sent a message to [address] [place] [address] asking what outpatient PT services they provide. Discussed transportation options with patient and , including using a private vehicle, privately paying for a mobility van $50 or more and non-emergent ambulance. Social Work Services ([facility]) advised that if insurance does not cover the charge for non-emergent ambulance, it could be a minimum of $3,000 private pay. SWS explained that our physicians have documented the medical need for the transport, although, that does not assure coverage. The patient plans to discharge via friend or neighbor, becausehis Julissa does not drive. Social Work Services ([facility]) contact information, including a phone number, was provided to patient, if any need or questions arise. He plans to discharge to home and drive home if needed. Signed by: Maria Guadalupe Feng 08/12/2019 RNET ASSESSOR documented in this encounter Nursing Notes Anika [...] as needed- d/c to 3 links in [place]. Denise Morris R.N. - 08/16/2019 5:16 AM CST Problem: SAFETY [...] Tylenol & Oxycodone for adequate pain control. RNET ASSESSOR Desirae Veras R.N. - 08/14/2019 6:39 PM [...] encouraged per self and he refuses assistance. RNET ASSESSOR Ella Milan RAugustine - 08/14/2019 5:18 AM CST Problem: PAIN [...] CST PAS completed and sent to [facility]. PAS [id number] RNET ASSESSOR Hanny Dowling R.N. - 08/13/2019 10:24 AM CST Patient became very agitated with nurse after she called him sir at the beginning of shift. Patient requested that he has a new nurse. Remarketing Rep was notified and spoke to the patient [...] need for pain meds. NPO since midnight RNET ASSESSOR Ellen Horne R.N. - 08/12/2019 6:18 PM CST Shift Goals: Patient to remain free from falls Identify possible barriers to meeting goals/advancing plan of care: none End of Shift Summary: Patient remained free of falls this shift. RNET ASSESSOR documented in this encounter OR Notes Op Note - John Norman M.D. - 08/13/2019 7:48 AM CST FULL OP NOTE Procedure(s) (LRB): OPEN REDUCTION INTERNAL FIXATION LEFT FEMUR (Left) Surgeon(s) and Role: * John Norman M.D. - Primary Social Worker School: Lesli Zuñiga L.P.N. Anesthesia Type Regional Pre-operative Diagnosis Fracture Hip Intertrochanteric Closed Initial Left (HCC) Post-operative Diagnosis Fracture Hip Intertrochanteric Closed Initial Left (HCC) Full Operative Note Details PROCEDURE(S) Open reduction, intramedullary fixation of left intertrochanteric femur fracture. SURGEON(S) John Norman M.D. AWNING FRAME MAKER: None. ANESTHESIA TYPE Spinal anesthesia. PRE-OPERATIVE DIAGNOSIS [...] closed using #1 Vicryl in an interrupted aetlul-he-nxkip fashion, followed by copious irrigation. Subcutaneous tissue [...] Implant Name Type Inv. Item Serial No. Salvage Cutter Lot No. LRB No. Used NL FEM TFN RT 130D [id number] - SNA - [id number] Hardware e.g. pins/screws/rods NL FEM TFN RT 130D [id number] NA Depuy Synthes [id number] Left [address] 10.5X110 - SNA - [id number] Hardware e.g. pins/screws/rods SCRW TFN FEN ST 10.5X110 NA Depuy Synthes [id number] Left 1 SCRW LCK [facility] TI T25 5X38 - [id number] Hardware e.g. pins/screws/rods SCRW [facility] T25 5X38 Depuy Synthes Left 1 Intra-op Medications Date/Time Order Dose Route Action Action by 08/13/2019 0901 ceFAZolin in NaCl 0.9 % IVPB 2 g (ANCEF) intravenous Anesthesia Volume Adjustment Kalia Luna 08/13/2019 0727 ceFAZolin in NaCl 0.9 % IVPB 2 g (ANCEF) 2 g intravenous Given Kalia Luna M.D. RNET ASSESSOR Brief Op Note - John Norman M.D. - 08/13/2019 7:48 AM CST BRIEF OP NOTE Procedure(s) (LRB): OPEN REDUCTION INTERNAL FIXATION LEFT FEMUR (Left) Surgeon(s) and Role: * John Norman M.D. - Primary Social Worker School: [employer]li Zuñiga L.P.N. Anesthesia Type Regional Pre-operative Diagnosis Fracture Hip Intertrochanteric Closed Initial Left (HCC) Post-operative Diagnosis Fracture Hip Intertrochanteric Closed Initial Left (HCC) Brief Operative Note Details Specimens None Drains None Estimated Blood Loss None Implants Implant Name Type Inv. Item Serial No. Salvage Cutter Lot No. LRB No. Used NL FEM TFN RT 130D [id number] - SNA - [id number] Hardware e.g. pins/screws/rods NL FEM TFN RT 130D [id number] NA [employer] [id number] Left [address] 10.5X110 - SNA - [id number] Hardware e.g. pins/screws/rods SCRW TFN FEN ST 10.5X110 NA Depuy Synthes [id number] Left 1 SCRW LCK [employer] TI T25 5X38 - [id number] Hardware e.g. pins/screws/rods SCRW LCK GILES TI T25 5X38 Depuy Synthes Left 1 John Norman M.D. RNET ASSESSOR documented in this encounter Miscellaneous Notes Hospital Course - Rahel Ashby M.D. - 08/13/2019 12:26 PM CST 59 y/o male who presented to the ED with left hip pain workup revealed nondisplaced left intertrochanteric trochanteric fracture. Patient also has anemia of chronic disease 08/13 s/p ORIF, trend hemoglobin. RNET ASSESSOR documented in this encounter Plan of Treatment Not on filedocumented as of this encounter Procedures Procedure Name Priority Date/Time Associated Diagnosis Comme nts ADULT OXYGEN Routine 08/15/2019 8:00 THERAPY AM INTERNET ASSESSOR ADULT OXYGEN Routine 08/14/2019 8:01 THERAPY PM INTERNET ASSESSOR ADULT OXYGEN Routine 08/14/2019 8:01 THERAPY AM INTERNET ASSESSOR IRON AND TOT Routine 08/14/2019 6:00 Results for IRON-BINDING AM INTERNET ASSESSOR this procedure CAPACITY, S/P are in the results section. HEMOGLOBIN, B Routine 08/14/2019 6:00 Results for AM INTERNET ASSESSOR this procedure are in the results section. VITAMIN B12 Routine 08/14/2019 6:00 Results for ASSAY, S AM INTERNET ASSESSOR this procedure are in the results section. ADULT OXYGEN Routine 08/13/2019 8:01 THERAPY PM INTERNET ASSESSOR ADULT OXYGEN Routine 08/13/2019 9:13 THERAPY AM INTERNET ASSESSOR ADULT OXYGEN Routine 08/13/2019 9:13 THERAPY AM INTERNET ASSESSOR FL FLUORO LESS RAD - Routine 08/13/2019 8:43 Results f or THAN 1 HOUR (most inpatients AM INTERNET ASSESSOR this proced ure and all are in the outpatients) results section. OPEN REDUCTION 08/13/2019 7:07 Fracture Hip INTERNAL AM INTERNET ASSESSOR Intertrochanteric FIXATION FEMUR Closed Initial Left (HCC) CBC WITH Routine 08/13/2019 6:06 Results for DIFFERENTIAL, B AM INTERNET ASSESSOR this procedu re are in the results section. GLUCOSE POCT, B Routine 08/13/2019 4:27 Results f or AM INTERNET ASSESSOR this procedure are in the results section. HEMOGLOBIN A1C, Routine 08/12/2019 1:17 Results f or B PM INTERNET ASSESSOR this procedure are in the results section. documented in this encounter Results (ABNORMAL) Vitamin B12 Assay (08/14/2019 6:00 AM INTERNET ASSESSOR) Analysis Performed At Patho logist Time Signature Vitamin B12 >2000 (H) 232 - 1245 08/14/2019 ECLR Assay, S ng/L 3:11 PM INTERNET ASSESSOR Comment: Biotin has been identified by the [facility] as a potential interfering substance. ??Higher concentr ations of biotin may be found in multivitamins, hair/nail supple ments, and workout supplements. ??If the result does not [facility] clinical observations, repeat testing after patient refrains fr om the use of supplements for at least 12 hours. Specimen Anatomical Collection Method Collection Time Receive d Time (Source) Location / / Volume Laterality Blood (Blood, 08/14/2019 6:00 AM 08/14/20 19 2:21 Venous) INTERNET ASSESSOR PM INTERNET ASSESSOR Laz Dumont M.D. LAB BLOOD ADD-ON Performing Organization Address City/State/ZIP Code Phon e Number [facility]- [address] [place] [address] 30 [phone] [facility] [place] [address] System in [address] (ABNORMAL) Iron and Total Iron-Binding Capacity (08/14/2019 6:00 AM INTERNET ASSESSOR) P athologist Signature Iron 15 (L) 50 - 150 08/14/2019 [facility] mcg/dL 6:49 AM INTERNET ASSESSOR Total Iron 260 250 - 400 08/14/2019 [facility] Binding mcg/dL 6:49 AM INTERNET ASSESSOR Capacity Percent 6 (L) 14 - 50 % 08/14/2019 [facility] Saturation 6:49 AM INTERNET ASSESSOR Specimen Anatomical Collection Method Collection Time Receive d Time (Source) Location / / Volume Laterality Blood (Blood, 08/14/2019 6:00 AM 08/14/20 19 6:20 Venous) INTERNET ASSESSOR AM INTERNET ASSESSOR Laz Dumont M.D. LAB BLOOD ADD-ON Performing Organization Address City/State/ZIP Code Phon e Number [facility]- [address] [place], [place] [address] [facility] [place] [address] System in [place] [facility] [place] (ABNORMAL) Hemoglobin (08/14/2019 6:00 AM INTERNET ASSESSOR) P athologist Signature Hemoglobin 7.5 (L) 13.2 - 16.6 08/14/2019 [facility] g/dL 6:23 AM INTERNET ASSESSOR Specimen Anatomical Collection Method Collection Time Receive d Time (Source) Location / / Volume Laterality Blood (Blood, 08/14/2019 6:00 AM 08/14/20 19 6:20 Venous) INTERNET ASSESSOR AM INTERNET ASSESSOR John Norman M.D. LAB BLOOD ADD-ON Performing Organization Address City/State/ZIP Code Phon e Number [facility]- [address] [place], [place] [address] [facility] [address] System in [place] [address] [place] Fluoro Less Than 1 Hour (08/13/2019 8:43 AM INTERNET ASSESSOR) Specimen (Source) Anatomical Location Collection Method / Collectio n Time Received Time / Laterality Volume Narrative 8000 LOS SEMN - 08/13/2019 8:45 AM INTERNET ASSESSOR This exam does not require a radiologist review or interpretation. Please refer to the patient's medical record on this date for clinical details. John Norman M.D. IMG FLUOROSCOPY PROCEDURES Performing Organization Address City/State/ZIP Code Phon e Number 8000 [facility] (ABNORMAL) CBC with Differential (08/13/2019 6:06 AM INTERNET ASSESSOR) [facility] Method Time Signature Hemoglobin 8.1 (L) 13.2 - 08/13/2019 [facility] 16.6 g/dL 6:32 AM INTERNET ASSESSOR Hematocrit 28.0 (L) 38.3 - 08/13/2019 [facility] 48.6 % 6:32 AM INTERNET ASSESSOR Erythrocytes 3.48 (L) 4.35 - 08/13/2019 [facility] 5.65 6:32 AM INTERNET ASSESSOR x10(12)/L MCV 80.5 78.2 - 08/13/2019 [facility] 97.9 fL 6:32 AM INTERNET ASSESSOR RBC Distrib Width 17.9 (H) 11.8 - 08/13/2019 [facility] 14.5 % 6:32 AM INTERNET ASSESSOR Platelet Count 179 135 - 317 08/13/2019 [facility] x10(9)/L 6:32 AM INTERNET ASSESSOR Leukocytes 6.7 3.4 - 9.6 08/13/2019 [facility] x10(9)/L 6:32 AM INTERNET ASSESSOR Neutrophils 5.06 1.56 - 08/13/2019 [facility] 6.45 6:32 AM INTERNET ASSESSOR x10(9)/L Lymphocytes 0.84 (L) 0.95 - 08/13/2019 [facility] 3.07 6:32 AM INTERNET ASSESSOR x10(9)/L Monocytes 0.73 0.26 - 08/13/2019 [facility] 0.81 6:32 AM INTERNET ASSESSOR x10(9)/L Eosinophils 0.06 0.03 - 08/13/2019 [facility] 0.48 6:32 AM INTERNET ASSESSOR x10(9)/L Basophils 0.03 0.01 - 08/13/2019 [facility] 0.08 6:32 AM INTERNET ASSESSOR x10(9)/L Specimen Anatomical Collection Method Collection Time Receive d Time (Source) Location / / Volume Laterality Blood (Blood, 08/13/2019 6:06 AM 08/13/20 19 6:28 Venous) INTERNET ASSESSOR AM INTERNET ASSESSOR Isaac Tompkins APRN.P., FidelNPiliP. LAB BLOOD ADD-ON Performing Organization Address City/State/ZIP Code Phon e Number [facility]- [address] [place], [place] [address] [facility] [address] System in [place] [address] [place] Glucose, POCT (08/13/2019 4:27 AM INTERNET ASSESSOR) athologist Signature Glucose, POCT, 101 70 - 140 08/13/2019 [facility] B mg/dL 4:27 AM INTERNET ASSESSOR Specimen Anatomical Collection Method Collection Time Receive d Time (Source) Location / / Volume Laterality Blood 08/13/2019 4:27 AM 9 4:34 INTERNET ASSESSOR AM INTERNET ASSESSOR Generic Rals LAB POCT ORDERABLES-MANUAL Performing Organization Address City/[facility]/ZIP Code Phon e Number [facility]- [address] [place], [place] [address] [facility] [place] [address] System in [place] [address] [place] (ABNORMAL) Hemoglobin A1c (08/12/2019 1:17 PM INTERNET ASSESSOR) athologist Signature Hemoglobin A1c, 5.7 (H) 4.2 - 5.6 08/12/2019 [facility] B % 1:43 PM INTERNET ASSESSOR Comment: Hemoglobin A1c values of 5.7-6.4 percent indicate an increased risk for developing diabetes m ellitus. In diabetic patients, HbA1c goals should be discussed with healthcare provider. Specimen Anatomical Collection Method Collection Time Receive d Time (Source) Location / / Volume Laterality Blood (Blood, 08/12/2019 1:17 PM 08/12/20 19 1:28 Venous) INTERNET ASSESSOR PM INTERNET ASSESSOR John Norman M.D. LAB BLOOD ADD-ON Performing Organization Address City/State/ZIP Code Phon e Number [facility]- [address] [place], [place] [address] [facility] [address] System in [place] [address] [place] documented in this encounter Visit Diagnoses Diagnosis Fracture Hip Intertrochanteric Closed In itial Left (HCC) - Primary Pain Joint Fracture Hip Closed Initial Left (HCC) Diabetes Mellitus Type 2 (HCC) Benign Prostatic Hyperplasia Without Obs truction History Of Falling Fracture Hip Intertrochanteric Closed In itial Left (HCC) documented in this encounter Admitting Diagnoses Diagnosis Fracture Hip Intertrochanteric Closed In itial Left (HCC) Fracture Hip Closed Initial Left (HCC) documented in this encounter Administered Medications Inactive Administered Medications - up to 3 most recent administrations Medication Order MAR Action Action Date Dose Rate Site acetaminophen tablet 1,000 mg Given 08/16/2019 9:00 AM INTERNET ASSESSOR 1,000 mg (TYLENOL) 1,000 mg, oral, 3 times daily PRN, mild pain or score 1-3 of 10, headaches, fever, Starting on Thu08/12/19 at 1403 Given 08/15/2019 6:32 PM INTERNET ASSESSOR 1,000 mg Given 08/15/2019 8:46 AM INTERNET ASSESSOR 1,000 mg allopurinol tablet 300 mg (ZYLOPRIM) Given 08/16/2019 6:22 AM INTERNET ASSESSOR 300 mg 300 mg, oral, Daily at bedtime, First dose (after last modification) on Thu08/16/19 at 0630 calcium carbonate chewable tablet Given 08/16/2019 6:0 9 AM INTERNET ASSESSOR 400 mg of calcium 400 mg of calcium (TUMS) 400 mg of calcium, oral, 2 times daily, First dose on Thu08/12/19 at 2100, Doses listed are in mg of elemental calcium. Take with food. 500 mg calcium carbonate contains 200 mg of elemental calcium. Given 08/15/2019 6:32 AM INTERNET ASSESSOR 400 mg of calcium Given 08/14/2019 5:25 PM INTERNET ASSESSOR 400 mg of calcium calcium carbonate chewable tablet Given 08/15/2019 5:4 3 PM INTERNET ASSESSOR 400 mg of calcium 400 mg of calcium (TUMS) 400 mg of calcium, oral, Every 2 hour PRN, heartburn, indigestion, Starting on Thu08/12/19 at 1413, Doses listed are in mg of elemental calcium. Take with food. 500 mg calcium carbonate contains 200 mg of elemental calcium. Given 08/13/2019 5:35 PM INTERNET ASSESSOR 400 mg of calcium ferrous sulfate tablet 65 mg of iron 65 mg of iron, oral, Daily, First dose o n 08/14/19 at 1315, 325 mg contains 65 mg of elemental iron. furosemide tablet 40 mg (LASIX) Given 08/15/2019 5:43 PM INTERNET ASSESSOR 40 mg 40 mg, oral, Daily before dinner, First dose on Thu08/12/19 at 1600 Given 08/14/2019 5:25 PM INTERNET ASSESSOR 40 mg Given 08/13/2019 5:33 PM INTERNET ASSESSOR 40 mg morphine injection 2 mg Given 08/15/2019 8:45 AM INTERNET ASSESSOR 2 mg 2 mg, intravenous, Every 2 hour PRN, severe pain or score 7-10 of 10, breakthrough pain, Starting on Thu08/12/19 at 1413, For breakthrough pain unrelieved 30 minutes after PRN oral pain medication is used or if unable to take oral pain medication. oxyCODONE IR tablet 10 mg (ROXICODONE) Given 08/16/2019 9:00 AM INTERNET ASSESSOR 10 mg 10 mg, oral, Every 4 hours PRN, severe pain or score 7-10 of 10, Starting on 08/13/19 at 0942, Second line therapy. If patient is greater than 7 after 2 hours, call service for new order. Given 08/15/2019 6:32 PM INTERNET ASSESSOR 10 mg Given 08/15/2019 1:31 PM INTERNET ASSESSOR 10 mg oxyCODONE IR tablet 5 mg (ROXICODONE) 5 mg, oral, Every 4 hours PRN, moderate pain or score 4-6 of 10, Starting on 08/13/19 at 0942, Second line therapy pantoprazole DR tablet 40 mg (PROTONIX) Given 08/16/2019 6:09 AM INTERNET ASSESSOR 40 mg 40 mg, oral, Daily before breakfast, First dose on 08/13/19 at 0700, pantoprazole 40 mg oral daily was interchanged for omeprazole 20 or 40 mg oral daily Swallow whole. Do NOT crush, chew, or split tablet. Given 08/15/2019 6:30 AM INTERNET ASSESSOR 40 mg Given 08/14/2019 6:36 AM INTERNET ASSESSOR 40 mg pediatric jprwwxabtszn-usdm-nkuggueu Given 08/16/2019 6:09 AM CS T 4 tablets chewable tablet 4 tablet (FLINTSTONES COMPLETE) 4 tablet, oral, Daily, First dose (after last modification) on 08/15/19 at 0630 Given 08/15/2019 6:32 AM INTERNET ASSESSOR 4 tablets sodium chloride 0.9 % injection 10 mL Given 08/15/2019 8:46 AM INTERNET ASSESSOR 10 mL 10 mL, intravenous, As needed, line care, Starting on Thu08/12/19 at 1410, Peripheral Intravenous Catheter and Rapid Infusion Catheter, prior to blood sampling, post blood transfusion or post blood sampling sodium chloride 0.9 % injection 3 mL Given 08/15/2019 10:09 PM INTERNET ASSESSOR 3 mL 3 mL, intravenous, Every 12 hours scheduled, First dose on Thu08/12/19 at 2100, Peripheral Intravenous Catheter and Rapid Infusion Catheter, when no infusion to maintain patency Given 08/14/2019 8:18 PM INTERNET ASSESSOR 3 mL Given 08/12/2019 11:47 PM INTERNET ASSESSOR 3 mL tamsulosin 24 hr capsule 0.4 mg (FLOMAX) 0.4 mg, oral, Daily at bedtime, First dose (after last modification) on Thu08/16/19 at 2100, [...] Recently Administered Medications Times are shown in INTERNET ASSESSOR. Scheduled Medication Order 08/14/2019 08/15/2019 08/16/2019 allopurinol tablet 300 mg (ZYLOPRIM) (CANCELED) 0635 ( Given - Provider: Ella Milan RAugustine) 0630 (Given - Provider: Clara Lr R.N.) 300 mg, oral, Daily, First dose on Thu08/13/19 at 0900 allopurinol tablet 300 mg (ZYLOPRIM) 0622 (Given - Provider: Denise Layne RAugustine) 300 mg, oral, Daily at bedtime, First do se (after last modification) on Thu08/16/19 at 0630 calcium carbonate chewable tablet 400 mg of calcium (T UMS) 0636 (Given - Provider: Ella Milan R.N.)1725 (Given - Provider: Desirae Veras R.N.) 0632 (Given - Provider: Clara Lr R.N.)202 (Not Given - Provider: Denise Layne R.N. [...] (LASIX) 1725 (Given - Provider : Desirae Versa R.N.) 1743 (Given - Provider: Viviana Acosta R.N.) 40 mg, oral, Daily before dinner, First dose on Thu08/12/19 at [address] tablet 40 mg (PROTONIX) 0636 (Given - Provider: Ella Milan R.N.) 0630 (Given - Provider: Clara Lr R.N.) 0609 (Gi cora - Provider: Denise Layne R.N.) 40 mg, oral, Daily before breakfast, Fir st dose on Thu08/13/19 at 0700, pantoprazole 40 mg oral daily was interchanged for omeprazole 20 or 40 mg oral daily Swallow whole. Do NOT crush, chew, or split tablet. pediatric bxhqwqdphbmp-hcoj-urtdtbch shaina wable tablet 2 tablet (FLINTSTONES COMPLETE) (CANCELED) 0902 (Given - Provider: Desirae Veras R.N.) 2 tablet, oral, Daily, First dose on 08/13/19 at 0900 pediatric jfukoppyhglo-kcut-dspuzomj shaina wable tablet 2 tablet (FLINTSTONES COMPLETE) (COMPLETED) 1144 (Given - Provider: Desirae Veras R.N.) 2 tablet, oral, Once, On 08/14/19 at 1145, For 1 dose, For total AM dose of 4 tablets pediatric okygufzhmupe-fsxa-rkamfnlr shaina wable tablet 4 tablet (FLINTSTONES COMPLETE) 0632 (Given - Provider: Clara Lr R.N.) 0609 (Given - Provider: Denise Layne R.N.) 4 tablet, oral, Daily, First dose (after last modification) on 08/15/19 at 0630 sennosides-docusate sodium 8.6-50 mg per tablet 1 tabl et (SENOKOT-S) 09 (Not Given - Provider: Desirae Veras R.N. - Reason: Patient/family refused)2019 (Not Given - Provider: Ella Milan R.N. - Reason: Patient/family refused) 619 (Not Given - Provider: Clara Lr R.N. - Reason: Patient/family refused)2056 (Not Given - Provider: Denise Layne R.N. - Reason: Patient/family refused) 06 (Not Given - Provider: Denise zacarias R.N. - Reason: Patient/family refused) 1 tablet, oral, 2 times daily, First dos e on 08/13/19 at 2100, Do not give if patient has diarrhea. sodium chloride 0.9 % injection 3 mL 0907 (Not Given - Provider: Desirae Veras R.N. - Reason: Order parameters not met)2017 (Given - Provider: Ella Milan R.N.) 09 (Not Given - Provider: Viviana Acosta R.N. - Reason: Other - Comment: see 10ml flush in PRN)2209 (Given - Provider: Denise Layne R.N.) 0814 (Not Given - Provider: Anika moore RPiliNPili - Reason: Patient/family refused) 3 mL, intravenous, Every 12 hours schedu led, First dose on Thu08/12/19 at 2100, Peripheral Intravenous Catheter and Rapid Infusion Catheter, when no infusion to maintain patency tamsulosin 24 hr capsule 0.4 mg (FLOMAX) (CANCELED) 09 (Given - Provider: Desirae Veras R.N.) 1743 [...] R.N.) 0900 (Given - Provider: Anika Sprague RPiliNPili - Comment: pt refuses to use a [...] calcium (TUMS) 1743 (Given - Provider: Viviana Acosta, R.N.) 400 mg of calcium, oral, Every 2 hour KS N, heartburn, indigestion, Starting on Thu08/12/19 at [...] 0 903 (Given - Provider: Desirae Veras RPiliN.)2017 (Given - Provider: Ella Milan RPiliNPili) 0.5 [...] mg 0845 (Given - Provider: Viviana Acosta R.N.) 2 mg, intravenous, Every 2 hour PRN, [...] 6 hours PRN, na usea, vomiting, Starting Thu08/12/19 at 1413 oxyCODONE IR tablet 10 mg (ROXICODONE)(Linked Group 1) 0902 (Given - Provider: Desirae Veras R.N.)2016 (Given - Provider: Ella Milan RAugustine) 0846 (Given - Provider: Viviana Acosta R.N.)1331 (Given - Provider: Viviana Acosta R.N.)1832 (Given [...] IR tablet 5 mg (ROXICODONE)(Linked Group 1) 0902 (See Alternative - Provider: Desirae Veras R.N.)2016 (See Alternative - Provider: Ella M Milan, R.N.) 0846 (See Alternative - Provider: Viviana Acosta R.N.)1331 (See Alternative - Provider: Viviana Acosta R.N.)1832 (See Alternative - Provider: Viviana Acosta R.N.) 0900 (See Alternative - Provider: Romana Sprague R.N.) 5 mg, oral, Every 4 hours PRN, moderate pain or score 4-6 of 10, Starting on 08/13/19 at 0942, Second line therapy polyethylene glycol powder packet 1 packet (MIRALAX) 1 packet, oral, Daily PRN, constipation, Starting Thu08/12/19 at 1413, Ordered sequence of administration: polyethylene [...] or score 4-6 of 10, Starting on 08/12/19 at 1736 Or traMADol tablet 100 mg (ULTRAM)Jump to med 100 mg, oral, Every 6 hours PRN, severe pain or score 7-10 of 10, Starting on Thu08/12/19 at 1736 documented in this encounter Additional Health Concerns Assessment Noted Time PHQ-9 Depression Total Score: 18 02/14/2013 9:53 AM CD T documented as of this encounter Care Teams Executive Office Manager Relationship Specialty Start Date End Date Cintia Cobb M.D. PCP - General 02/19/17 02/20/[id number] [address] documented as of this encounter
--- OUTSIDE RECORDS SUMMARY | 2022-07-29 10:48 | XMS_ITS | Encounter Summary ---
:1960 Author Organization [facility] Address [address] [place] [address] Care Team Providers Name Role Phone Cintia Cobb M.D. Primary Care Provider [phone] Encounter Details Date Type Department Care Team Description 08/12/2019 Orders Only Department of Orthopedic John Norman M.D. Surgery in [address] [address] [place] [address] [place] [address] [phone] Social History Tobacco Use Types Packs/Day Years [...] documented as of this encounter Care Teams Mailing Jogger Relationship Specialty Start Date End Date Cintia Cobb M.D. PCP - General 02/19/17 02/20/[id number] [phone] documented as of this encounter
--- OUTSIDE RECORDS SUMMARY | 2022-07-29 10:48 | XMS_ITS | Encounter Summary ---
:1960 Author Organization [facility] Address [address] [place] [address] Care Team Providers Name Role Phone Cintia Cobb M.D. Primary Care Provider [phone] Reason for Visit Reason Comments Hip Pain 59 year old male admits . Pt was chasing his truck and slipped on the ice . Pt was unable to get up comp laints of left hip pain Encounter Details Date Type Department Care Team Description 08/12/2019 Emergency [place] [facility] Sancho Wise Hip Closed Department (Skip) Keely ALLEN, Initial Left (HCC) [id number] M.P.H. (Primary Dx) [place], [place] [address] [address] [place] [address] Social History Tobacco Use Types Packs/Day Years Used Date Smoking Tobacco: Never Smokeless Tobacco: Never Alcohol Use Standard Drinks/Week Comments No 0 (1 standard drink = 0.6 oz pure alcoho l) Sex Assigned at Date Recorded Not on file documented as of this encounter Last Filed Vital Signs Vital Sign Reading Time Taken Comments Blood Pressure 130/71 08/12/2019 11:46 AM FRAMING MECHANIC Pulse 69 08/12/2019 11:46 AM FRAMING MECHANIC Temperature 37.1 ??C (98.8 ??F) 08/12/2019 11:46 AM FRAMING MECHANIC Respiratory Rate 16 08/12/2019 8:57 AM FRAMING MECHANIC Oxygen Saturation 100% 08/12/2019 11:46 AM FRAMING MECHANIC Inhaled Oxygen Concentration - - Weight 83.3 kg (183 lb 10.3 oz) 08/12/2019 8:51 AM FRAMING MECHANIC Height 182.9 cm (6') 08/12/2019 8:51 AM FRAMING MECHANIC Body Mass Index 24.91 08/12/2019 8:51 AM FRAMING MECHANIC documented in this encounter Medications at Time [...] than 4 g per day total long-term PEDIATRIC MULTIVITAMIN Take 4 tablets by 0 2015 NO.76 (FLINTSTONES mouth daily. COMPLETE ORAL) acetaminophen (TYLENOL) Take 1,000 mg by 0 08/16/2019 500 mg tablet mouth 3 (three) times a day as needed for pain. allopurinol (ZYLOPRIM) TAKE ONE TABLET BY 90 tablet 0 06/2209/19/2019 300 mg tablet MOUTH DAILY furosemide (LASIX) 40 mg TAKE ONE TABLET BY 90 tablet 0 09/19/2019 tablet MOUTH DAILY omeprazole (PriLOSEC) 20 Take 1 capsule (20 90 capsule 3 11/08/[address] capsule mg total) by mouth every morning before breakfast. oxyCODONE (ROXICODONE) Take 1 tablet (10 mg [...] tablet of iron total) by mouth daily. oxyCODONE (ROXICODONE) Take 1 tablet (10 mg 15 tablet 0 06/201908/16/2019 10 mg IR total) by mouth tabletIndications: Acute every 4 (four) hours Pain as needed for severe pain or score 7-10 of 10 Indication: Acute Pain. or 1/2 tab q.4 hours p.r.n. pain 4-6 tamsulosin (FLOMAX) 0.4 Take 0.4 mg by mouth 11 09/20/2019 mg 24 hr capsule daily. documented as of this encounter ED Notes Sancho Wise III, M.D. (Skip), M.P.H. - 08/12/2019 9:08 AM CST Images from the original note were not included. SUBJECTIVE CHIEF COMPLAINT/REASON FOR VISIT Hip Pain (59 year old male admits . Pt was chasing his truck and slipped on the ice . Pt was unable to get up complaints of left hip pain) HISTORY OF PRESENT ILLNESS Patient was loading his truck this morning when the truck began to slide down an icy road. He ran after the truck and slipped, falling onto his left side. He denies hitting his head or losing consciousness. He was unable to stand up again. Paramedics were called to the scene and he was lifted onto a stretcher since he was unable to move his left leg. He has severe left hip pain with any movement, andno pain with no movement. He has no history of artificial joints. He is not anticoagulated. His lastmeal was at 6:00 a.m.. REVIEW OF SYSTEMS Respiratory: Negative for shortness of breath. Cardiovascular: Negative for chest pain. Musculoskeletal: Positive for extremity pain. Neurological: Negative for syncope and headaches. All other systems reviewed and are negative. OBJECTIVE Initial Vitals Temperature Pulse Rate Heart Rate Resp Rate Blood Pressure SpO2 08/12/19 0833 08/12/19 0833 -- 08/12/19 0833 08/12/19 0833 08/12/19 0833 36 ??C 63 16 133/83 100 % Pain Score 08/12/19 0837 5 - Moderate pain PHYSICAL EXAMINATION HENT: Head: Normocephalic and atraumatic. Eyes: EOM are normal. Pupils are equal, round, and reactive to light. Extraocular Movements: EOM normal. Neck: Normal range of motion. Neck supple. Pulmonary/Chest: Effort normal. No respiratory distress. Musculoskeletal: No edema. Left hip: He exhibits decreased range of motion, decreased strength, tenderness, bony tenderness and deformity. Legs: Neurological: He is alert and oriented to person, place, and time. No cranial nerve deficit. Coordination normal. Skin: Skin is warm and dry. Psychiatric: He has a normal mood and affect. His behavior is normal. Thought content normal. Nursing note and vitals reviewed. ASSESSMENT/PLAN Impression and Plan Patient presents with left hip pain after falling on the ice this morning. He is unable to move the leg, and pain is only with movement. X-ray demonstrates nondisplaced intertrochanteric fracture. Orthopedics in [place] consulted. Orthopedics and anesthesia accept the patient for transfer. Hospitalist and [facility] accepts for transfer. Differential Diagnoses Conditions include, but are not limited to: fracture, sprain, strain, contusion, dislocation, vascular damage, nerve damage, ligament damage, tendon damage, and other etiologies. I reviewed previous medical records including EKG images/reports. I reviewed the radiology report(s). The Radiology exam interpretation(s) is/are abnormal. I personally reviewed the ECG result(s) and my interpretation is abnormal but at baseline, with the following comments: Ventricular paced rhythm with a heart rate of 63. ED Course as of Aug 12 1036ThuAug 12, 2019 0910 Intertrochanteric fracture seen on x-ray, orthopedics and whitt called Final Diagnoses: as of Aug 12 1036 Fracture Hip Closed Initial Left (HCC) Sancho Wise III, M.D. (Skip), M.P.H. 08/12/191035 ING MECHANIC Mehreen Mascorro R.N. 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 Pt chased after truck. Pt slipped on ice from a standing position injuring left hip, denies all other injury Mehreen Mascorro R.N. 08/12/19 0840 ING MECHANIC documented in this encounter Plan of Treatment Not on filedocumented as of this encounter Procedures Procedure Name Priority Date/Time Associated Comments Diagnosis PROTHROMBIN TIME STAT 08/12/2019 9:55 Results for this (PT), P AM FRAMING MECHANIC procedure are i n the results section. CBC WITH STAT 08/12/2019 9:55 Results for this DIFFERENTIAL, B AM FRAMING MECHANIC procedure ar e in the results section. BASIC METABOLIC STAT 08/12/2019 9:55 Results f or this PANEL, S/P AM FRAMING MECHANIC procedure are i n the results section. ECG STAT 08/12/2019 9:24 Results for this AM FRAMING MECHANIC procedure are i n the results section. DX HIP AND PELVIS RAD - Semiurgent 08/12/2019 8:51 Res ults for this LEFT 2-3 VIEWS (Fast; most ED AM FRAMING MECHANIC procedure a re in patients; some the results inpatients) section. documented in this encounter Results Prothrombin Time (PT) (08/12/2019 9:55 AM FRAMING MECHANIC) P athologist Signature Prothrombin 8.8 8.8 - 11.9 08/12/2019 CNFL Time, P sec 10:09 AM FRAMING MECHANIC INR 0.9 0.9 - 1.2 08/12/2019 CNFL 10:09 AM FRAMING MECHANIC Comment: Standard intensity warfarin therapeutic range: 2.0 to 3.0 High intensity warfarin therapeutic rang e: 2.5 to 3.5 Specimen Anatomical Collection Method Collection Time Receive d Time (Source) Location / / Volume Laterality Blood (Blood, 08/12/2019 9:55 AM 08/12/20 9:55 Venous) FRAMING MECHANIC AM FRAMING MECHANIC Sancho (Skip) Frandy ALLEN M.D., M.P.H. LAB BLOOD ADD-ON Performing Organization Address City/State/ZIP Code Phon e Number [facility]- [address] [place] [address] [place] [address] [facility] [place] [address] System in [place] [address] Bl (ABNORMAL) Basic Metabolic Panel (08/12/2019 9:55 AM FRAMING MECHANIC) P athologist Signature Potassium, P 4.6 3.6 - 5.2 08/12/2019 CNFL mmol/L 10:19 AM FRAMING MECHANIC Sodium, P 139 135 - 145 08/12/2019 CNFL mmol/L 10:19 AM FRAMING MECHANIC Chloride, P 100 98 - 107 08/12/2019 CNFL mmol/L 10:13 AM FRAMING MECHANIC Bicarbonate, P 27 22 - 29 08/12/2019 CNFL mmol/L 10:13 AM FRAMING MECHANIC Anion Gap, P 12 7 - 15 08/12/2019 CNFL 10:19 AM FRAMING MECHANIC BUN (Blood Urea 26 (H) 8 - 24 08/12/2019 CNFL Nitrogen), P mg/dL 10:13 AM FRAMING MECHANIC Creatinine 1.06 0.74 - 08/12/2019 CNFL 1.35 mg/dL 10:13 AM FRAMING MECHANIC eGFR-Black/Afri 87 >=60 08/12/2019 CNFL can Ivorian mL/min/BSA 10:13 AM FRAMING MECHANIC Comment: ----ADDITIONAL INFORMATION---- Estimated GFR calculated using the 2009 CKD_EPI creatinine equation. eGFR Non-Black/ 75 >=60 mL/min/BSA 08/12/2019 10:13 AM FRAMING MECHANIC CNFL Comment: ----ADDITIONAL INFORMATION---- Estimated GFR calculated using the 2009 CKD_EPI creatinine equation. Calcium, Total, P 9.2 8.8 - 10.2 mg/dL 08/12/2019 10:1 3 AM FRAMING MECHANIC CNFL Glucose, P 131 70 - 140 mg/dL 08/12/2019 10:13 AM FRAMING MECHANIC CNFL Specimen Anatomical Collection Method Collection Time Receive d Time (Source) Location / / Volume Laterality Blood (Blood, 08/12/2019 9:55 AM 08/12/20 9:55 Venous) FRAMING MECHANIC AM FRAMING MECHANIC Sancho (Skip) Frandy ALLEN M.D., M.P.H. LAB BLOOD ADD-ON Performing Organization Address City/State/ZIP Code Phon e Number [facility]- [address] [place] [id number] [facility] [address] [address] (ABNORMAL) CBC with Differential, Blood (08/12/2019 9:55 AM FRAMING MECHANIC) [facility] gist Method Time Signature Hemoglobin 8.3 (L) 13.2 - 08/12/2019 CNFL 16.6 g/dL 10:03 AM FRAMING MECHANIC Hematocrit 28.1 (L) 38.3 - 08/12/2019 CNFL 48.6 % 10:03 AM FRAMING MECHANIC Erythrocytes 3.51 (L) 4.35 - 08/12/2019 CNFL 5.65 10:03 AM FRAMING MECHANIC x10(12)/L MCV 80.1 78.2 - 08/12/2019 CNFL 97.9 fL 10:03 AM FRAMING MECHANIC RBC Distrib Width 17.7 (H) 11.8 - 08/12/2019 CNFL 14.5 % 10:03 AM FRAMING MECHANIC Platelet Count 225 135 - 317 08/12/2019 CNFL x10(9)/L 10:03 AM FRAMING MECHANIC Leukocytes 5.8 3.4 - 9.6 08/12/2019 CNFL x10(9)/L 10:03 AM FRAMING MECHANIC Neutrophils 4.39 1.56 - 08/12/2019 CNFL 6.45 10:03 AM FRAMING MECHANIC x10(9)/L Lymphocytes 0.89 (L) 0.95 - 08/12/2019 CNFL 3.07 10:03 AM FRAMING MECHANIC x10(9)/L Monocytes 0.45 0.26 - 08/12/2019 CNFL 0.81 10:03 AM FRAMING MECHANIC x10(9)/L Eosinophils 0.07 0.03 - 08/12/2019 CNFL 0.48 10:03 AM FRAMING MECHANIC x10(9)/L Basophils 0.03 0.01 - 08/12/2019 CNFL 0.08 10:03 AM FRAMING MECHANIC x10(9)/L Specimen Anatomical Collection Method Collection Time Receive d Time (Source) Location / / Volume Laterality Blood (Blood, 08/12/2019 9:55 AM 08/12/20 9:55 Venous) FRAMING MECHANIC AM FRAMING MECHANIC Authorizing Provider Result Thom Higgins) Frandy ALLEN M.D., M.P.H. LAB BLOOD ADD-ON Performing Organization Address City/State/ZIP Code Phon e Number [facility]- [address] [place] [address] [place] [address] [facility] [address] [address] ECG 12 Lead (08/12/2019 9:24 AM FRAMING MECHANIC) P athologist Signature Ventricular Rate 63 BPM MUSE ECG/Min QRSD Interval 174 ms MUSE QT Interval 460 ms MUSE QTC Interval 470 ms MUSE R Perkins -84 degrees MUSE T Wave Perkins 81 degrees MUSE Specimen Anatomical Collection Method Collection Time Receive d Time (Source) Location / / Volume Laterality 08/12/2019 9:24 AM 9 9:28 FRAMING MECHANIC AM FRAMING MECHANIC Impressions MUSE - 08/12/2019 9:28 AM FRAMING MECHANIC Dual chamber electronic pacemaker Sinus rhythm When compared with ECG of 04-AUG-2017 20 :03, No significant change was found Reviewed by KARINA Williamson Narrative This result has an attachment that is no t available. Procedure Note Juan Miguel Casas M.D. - 08/12/2019Fo rmatting of this note might be different from the original. IMPRESSION: Dual chamber electronic pacemaker Sinus rhythm When compared with ECG of 04-AUG-2017 20 :03, No significant change was found Reviewed by KARINA Williamson Sancho (Skip) Frandy ALLEN M.D., M.P.H. ECG ORDERABLES Performing Organization Address City/State/ZIP Code Phon e Number MUSE MUSE NA DX Hip And Pelvis Left 2-3 Views (08/12/2019 8:51 AM FRAMING MECHANIC) Anatomical Region Laterality Modality Lower Extremity, Pelvis, Hip, Musculoskeletal RST LOS, Left Digital Radiography Musculoskeletal ARZ LOS, Muskuloskeletal FLA LOS Specimen (Source) Anatomical Collection Method Collection Time Re ceived Time Location / / Volume Laterality 08/12/2019 8:53 AM FRAMING MECHANIC Impressions 08/12/2019 8:58 AM FRAMING MECHANIC Nondisplaced left intertrochanteric trochanteric fracture. Femoral acetabular joints are congruent. Mild to moderate degenerative changes at both hips. Lumbosacral spondylosis. No suspic ious osseous lesion. Narrative 08/12/2019 8:58 AM FRAMING MECHANIC EXAM: DX HIP AND PELVIS LEFT 2-3 VIEWS COMPARISON: None Procedure Note Jamal Montenegro M.D. - 08/12/2019Formattin g of this note might be different from the original. EXAM: DX HIP AND PELVIS LEFT 2-3 VIEWS COMPARISON: None IMPRESSION: Nondisplaced left intertrochanteric troc hanteric fracture. Femoral acetabular joints are congruent. Mild to moderate degenerative changes at both hips. Lumbosacral spondylosis. No suspic ious osseous lesion. Sancho (Skip) Frandy ALLEN M.D., M.P.H. IMG DIAGNOSTIC I MAGING PROCEDURES documented in this encounter Visit Diagnoses Diagnosis Fracture Hip Closed Initial Left (HCC) - Primary documented in this encounter Additional Health Concerns Assessment Noted Time PHQ-9 Depression Total Score: 18 02/14/2013 9:53 AM CD T documented as of this encounter Care Teams Tax Staff Accountant Relationship Specialty Start Date End Date Cintia Cobb M.D. PCP - General 02/19/17 02/20/[address] [place] [phone] documented as of this encounter
--- OUTSIDE RECORDS SUMMARY | 2022-07-29 10:48 | XMS_ITS | Encounter Summary ---
:1960 Author Organization [facility] Address [address] [place] [address] Care Team Providers Name Role Phone Cintia Cobb M.D. Primary Care Provider [phone] Reason for Visit MRI/CAT/PET Scan (Routine) - Closed Specialty Diagnoses / Procedures Referred By Contact Refer red To Contact Radiology Diagnoses Pain Low Back Unspecified Cintia Cobb [facility] Region Procedures CT Lumbar Spine without IV Contrast NV CT LUMBAR SPINE WO SINGHRST HC CT LUMBAR SPINE WO SINGHRST NV CT LUMBAR SPINE WO SAMAAR Piper M.D. [address] [place] [phone] Referral ID Status Reason Start Date Expiration Date Visits Requ ested Visits Authorized [id number] Closed 04/07/2018 04/07/2019 1 1 Encounter Details Date Type Department Care Team Description 04/21/2018 Hospital Encounter Department of Radiology [place] Cintia Arellano M.D. [address] [phone] Social History Tobacco Use Types Packs/Day Years Used Date Smoking Tobacco: Never Smokeless Tobacco: Never Alcohol Use Standard Drinks/Week Comments No 0 (1 standard drink = 0.6 oz pure alcoho l) Sex Assigned at Date Recorded Not on file documented as of this encounter Medications at Time of Discharge Medication Sig Dispensed Refills Start Date End Date PEDIATRIC MULTIVITAMIN Take 4 tablets by 0 2015 NO.76 (FLINTSTONES mouth daily. COMPLETE ORAL) acetaminophen (TYLENOL) Take 1,000 mg by 0 08/16/2019 500 mg tablet mouth 3 (three) times a day as needed for pain. allopurinol Take 1 tablet (300 90 tablet 3 08/04/201706/01 (for_ZYLOPRIM) 300 mg mg total) by mouth tablet daily. cyanocobalamin, vitamin Inject 1,000 mcg 3 kit 3 201606/01/2018 B-12, 1,000 mcg/mL kit under the skin every 30 (thirty) days. DULoxetine (CYMBALTA) 20 Take 1 capsule (20 0 06/01/[address] capsule mg total) by mouth 2 (two) times a day. furosemide (LASIX) 40 mg Take 1 tablet (40 mg 90 tablet 3 1 10/04/2016 06/01/2018 tablet total) by mouth daily. omeprazole (PriLOSEC) 20 Take 1 capsule (20 60 capsule 11 09/28/2018 mg capsule mg total) by mouth 2 (two) times a day before breakfast and dinner. Take BID for 1 month then take daily indefinitely. sennosides-docusate Take 2 tablets by 0 08/12/2019 sodium (SENNA WITH mouth 2 (two) times DOCUSATE SODIUM) 8.6-50 a day. mg per tablet documented as of this encounter Plan of [...] correlation with possible left L5 radiculopathy. Cintia Copeland M.D. IMG CT PROCEDURES documented in this encounter Visit Diagnoses Not on filedocumented in this encounter Additional Health Concerns Assessment Noted Time PHQ-9 Depression Total Score: 18 02/14/2013 9:53 AM CD T documented as of this encounter Care Teams Health Care Manager Relationship Specialty Start Date End Date Cintia Cobb M.D. PCP - General 02/19/17 02/20/[address] [place] [phone] documented as of this encounter
--- OUTSIDE RECORDS SUMMARY | 2022-07-29 10:49 | XMS_ITS | Encounter Summary ---
:1960 Author Organization [facility] Address [address] [place] [address] Care Team Providers Name Role Phone Cintia Cobb M.D. Primary Care Provider [phone] Reason for Visit Reason Onset Date Comments CT Scan 04/08/2018 Encounter Details Date Type Department Care Team Description 04/08/2018 Clinical Communication Department of Replaced By [facility] Medicine, Jose Daniel Piper M.D. [address] [address] [place], [place] [phone] (Work) [phone] Social History Tobacco Use Types Packs/Day Years Used Date Smoking Tobacco: Never Smokeless Tobacco: Never Alcohol Use Standard Drinks/Week Comments No 0 (1 standard drink = 0.6 oz pure alcoho l) Sex Assigned at Date Recorded Not on file documented as of this encounter Miscellaneous Notes Telephone Encounter - Laura Mejia, RPiliN. - 04/12/2018 9:44 AM CDT Per PCP, pt passed out multiple times over the weekend, as reported to her via email by pt's . PCP states Adela is reporting that he also has black stools, and is very weak. PCP advised to call an ambulance and to have him transported to the ED [facility] to be evaluated. Telephone Encounter - Preethi Wagner R.N. - 04/09/2018 10:30 AM CDT Attempted to call patient at both numbers listed in chart. Neither phone was available. Telephone Encounter - Jena Martell R.N. - 04/08/2018 10:39 AM CDT RN attempted to contact pt calling pts 's phone number at [phone]. No answer, left voice message for pt to contact the clinic. Telephone Encounter - Jena Martell R.N. - 04/08/2018 10:24 AM CDT Scheduling informed RN that the number listed on his chart ([phone]) is an invalid number. RN tried to call pts home phone number of [phone] and is an invalid number. RN attempted to contact pt using his temporary number in his chart ([phone]), no answer, and isan invalid number. Telephone Encounter - Jena Martell R.N. - 04/08/2018 10:17 AM CDT RN spoke with scheduling about scheduling the CT for this pt for 04/08/2018 or 04/09/2018. Scheduling was calling pt to make an appt for the CT scan of his lumbar spine. Telephone Encounter - Cintia Cobb M.D. - 04/08/2018 10:08 AM CDT Can you please help facilitate patient getting a CT scan of his lumbar spine scheduled? He wanted tocome in later today or tomorrow morning. It is ordered and noncontrast. Cintia Segura documented in this encounter Plan of Treatment Not on filedocumented as of this encounter Visit Diagnoses Not on filedocumented in this encounter Additional Health Concerns Assessment Noted Time PHQ-9 Depression Total Score: 18 02/14/2013 9:53 AM CD T documented as of this encounter Care Teams Clam Dredger Relationship Specialty Start Date End Date Cintia Cobb M.D. PCP - General 02/19/17 02/20/[address] [place] [phone] documented as of this encounter
--- OUTSIDE RECORDS SUMMARY | 2022-07-29 10:49 | XMS_ITS | Encounter Summary ---
:1960 Author Organization [facility] Address [address] [place] [address] Care Team Providers Name Role Phone Cintia Cobb M.D. Primary Care Provider [phone] Encounter Details Date Type Department Care Team Description 03/23/2018 Clinical Communication Department of [place] Medicine, Jose Daniel Hernandez [address] [address] [place], [place] [phone] (Work) [phone] Social History Tobacco Use Types Packs/Day Years Used Date Smoking Tobacco: Never Smokeless Tobacco: Never Alcohol Use Standard Drinks/Week Comments No 0 (1 standard drink = 0.6 oz pure alcoho l) Sex Assigned at Date Recorded Not on file documented as of this encounter Miscellaneous Notes Telephone Encounter - Preethi Wagner RPiliNPili - 03/23/2018 1:25 PM CDT Patient called and is looking for appointment with Dr. Whyte. He said he tried to send her an email and got a response that she is out of the office until 10/23/17. I did let Ed know that primary care provider is out of the office until next week. He states he thinks he might have reinjuredhis back, possibly a herniated disk. He would like to make an appointment with another provider for this week, assisted patient to schedule with Sheeba Michaels on 03/24/18. Patient states if he changes his mind and chooses to go to the emergency room he will call and let us know. documented in this encounter Plan of Treatment Not on filedocumented as of this encounter Visit Diagnoses Not on filedocumented in this encounter Additional Health Concerns Assessment Noted Time PHQ-9 Depression Total Score: 18 02/14/2013 9:53 AM CD T documented as of this encounter Care Teams Twine Reeling Machine Operator Relationship Specialty Start Date End Date Cintia Cobb M.D. PCP - General 02/19/17 02/20/[address] [place] [phone] documented as of this encounter
--- OUTSIDE RECORDS SUMMARY | 2022-07-29 10:49 | XMS_ITS | Encounter Summary ---
:1960 Author Organization [facility] Address [address] [place] [address] Care Team Providers Name Role Phone Cintia Cobb M.D. Primary Care Provider [phone] Reason for Referral MRI/CAT/PET Scan (Routine) - Closed Specialty Diagnoses / Procedures Referred By Contact Refer red To Contact Radiology Diagnoses Pain Low Back Unspecified Cintia Cobb [facility] Region Procedures CT Lumbar Spine without IV Contrast [place] CT LUMBAR SPINE WO [facility] HC CT LUMBAR SPINE WO [facility] [place] CT LUMBAR SPINE WO SAMARA Piper M.D. [address] [place] [phone] Referral ID Status Reason Start Date Expiration Date Visits Requ ested Visits Authorized [id number] Closed 04/07/2018 04/07/2019 1 1 utpatient (Routine) - Closed Specialty Diagnoses / Procedures Referred By Contact Refer red To Contact Diagnoses Weakness Leg Left Cintia Cobb Referring S, M.D. Provider [address] [place] [phone] Referral ID Status Reason Start Date Expiration Visits Visits Date Requested Authorized [id number] Closed Patient 04/06/2018 04/06/2019 1 1 Preference Reason for Visit Reason Comments bilateral knee pain Appointment Request (Routine) - Closed Specialty Diagnoses / Procedures Referred By Contact Refer red To Contact Family Medicine Referral ID Status Reason Start Date Expiration Date Visits Requ ested Visits Authorized [id number] Closed 03/31/2018 03/31/2019 1 1 Encounter Details Date Type Department Care Team Description 04/06/2018 Office Visit Department of Family Reed Cobb Leg Left (Primary Dx); Medicine, Jose Daniel Piper M.D. [facility], [address] [address] [place], [place] [phone] (W ork) [id number] [phone] Social History Tobacco Use Types Packs/Day Years Used Date Smoking Tobacco: Never Smokeless Tobacco: Never Alcohol Use Standard Drinks/Week Comments No 0 (1 standard drink = 0.6 oz pure alcoho l) Sex Assigned at Date Recorded Not on file documented as of this encounter Last Filed Vital Signs Vital Sign Reading Time Taken Comments Blood Pressure 115/71 04/06/2018 4:20 PM CDT Pulse 78 04/06/2018 4:20 PM CDT Temperature - - Respiratory Rate - - Oxygen Saturation 98% 04/06/2018 4:20 PM CDT Inhaled Oxygen Concentration - - Weight - - Height - - Body Mass Index - - documented in this encounter Progress Notes Xochitl Hackett LPiliP.N. - 04/06/2018 4:15 PM CDT Client seen in ED on 03/25/18 for low back pain. Back is feeling good. Now, client having bilateral decreased ROM of knees and would like to discuss xrays. Denies numbnessor tingling outside of his neuropathy pain. Difficulty lifting leg on his own, having to use his armto lift. Cintia Cobb M.D. - 04/06/2018 4:15 PM CDT CHIEF COMPLAINT / REASON FOR VISIT Ed Cuauhtemoc Luna is a 57 y.o. male who presents for evaluation of bilateral knee pain. HISTORY OF PRESENT ILLNESS Ed states that a couple weeks ago, he developed low back pain which started suddenly when getting out of his truck. Pain was worse the next day when he was trying to lift something. He could only standdue to the significant pain in his back. He was seen in the emergency department on March 25. Around that same time, he developed left leg weakness. He was given naproxen in the emergency department and reports that his back pain resolved after approximately 5 days. The left leg weakness however has continued. He has to use his arm to lift his left leg at the hip and his knee will buckle on him if he is going up or down stairs with that leg. This is not getting better or worse. He does have some lef t knee pain but the weakness is worse. He denies any hip pain. His right knee is also bothering him a little with some cracking. Pain fluctuates. There is occasional weakness with walking in the right knee as well. Brief Review of Systems: A brief review of systems was negative except for that mentioned in the history of present of illness. Current Outpatient Medications Medication Sig ??? allopurinol (for_ZYLOPRIM) 300 mg tablet Take 1 tablet (300 mg total) by mouth daily. ??? cyanocobalamin, vitamin B-12, 1,000 mcg/mL kit Inject 1,000 mcg under the skin every 30 (thirty)days. ??? DULoxetine (CYMBALTA) [address] capsule Take 2 capsules (40 mg total) by mouth 2 (two) times a day. ??? furosemide (LASIX) 40 mg tablet Take 1 tablet (40 mg total) by mouth daily. ??? PEDIATRIC MULTIVITAMIN NO.76 (FLINTSTONES COMPLETE ORAL) Take 1 tablet by mouth 2 (two) times a day. ??? predniSONE (DELTASONE) 20 mg tablet Take 2 tablets (40 mg total) by mouth daily for 5 days. Allergies Allergen Reactions ??? Ciprofloxacin Other (see comments) ??? Haemophilus Influenzae GI intolerance Diarrhea PHYSICAL EXAM BP 115/71 (BP Location: Left arm, Patient Position: Sitting, Cuff Size: Regular) Pulse 78 SpO2 98% There is no height or weight on file to calculate BMI. General: Alert and oriented. No acute distress. Back: He does have some pain over the mid to upper lumbar spine. He has mild discomfort with hyper extension of his back and lateral bending in either direction. He can forward flex to almost 90??. Extremities: There is no swelling about either knee joint. He is able to forward flex the left hip with his knee bent but this is weaker than the right side. He also has approximately 4-out of 5 strength with left knee flexion and extension compared to 5/5 strength on the right. Ankle plantar and dorsiflexion is symmetric bilaterally. He can only get his foot 1 inch off the table with straight leg raise on the left. He cannot resist any pressure. Right straight leg raise is unremarkable. Neurologic: Sensation to light touch is the same over both legs. I am unable to elicit his patellar reflexes on either the right or left. ASSESSMENT/PLAN: #1 Weakness Leg Left #2 Pain Low Back I am concerned that there is something going on in patient's lower back which is causing this weakness possibly at the L2-L3 level. As he has a pacemaker, we cannot move forward with an MRI. After discussion with Radiology, we will get a noncontrast CT scan of his lumbar spine. We are going to try a burst of prednisone at 40 mg daily for 5 days. documented in this encounter Plan of Treatment Not on filedocumented as of this encounter Results CT Lumbar Spine without [...] documented in this encounter Visit Diagnoses Diagnosis Weakness Leg Left - Primary Pain Low Back Unspecified documented in this encounter Additional Health Concerns Assessment Noted Time PHQ-9 Depression Total Score: 18 02/14/2013 9:53 AM CD T documented as of this encounter Care Teams Manager Visual Relationship Specialty Start Date End Date Cintia Cobb M.D. PCP - General 02/19/17 02/20/[id number] [phone] documented as of this encounter
--- OUTSIDE RECORDS SUMMARY | 2022-07-29 10:49 | XMS_ITS | Encounter Summary ---
:1960 [facility] Address [address] [place] [address] Care Team Providers Name Role Phone Cintia Cobb M.D. Primary Care Provider [phone] Reason for Visit Auth/Cert Specialty Diagnoses / Procedures Referred By Contact Refer red To Contact Diagnoses Hemorrhage Gastrointestinal Anemia Procedures NA Referral ID Status Reason Start Date Expiration Date Visits Requ ested Visits Authorized [id number] 1 1 Encounter Details Date Type Department Care Team Description 04/13/2018 Surgery Department of Omar Stone TRODUODENOSCOPY Gastroenterology in [place] M.D[address] [id number] [phone] Social History Tobacco Use Types Packs/Day Years Used Date Smoking Tobacco: Never Smokeless Tobacco: Never Alcohol Use Standard Drinks/Week Comments No 0 (1 standard drink = 0.6 oz pure alcoho l) Sex Assigned at Date Recorded Not on file documented as of this encounter Last Filed Vital Signs Vital Sign Reading Time Taken Comments Blood Pressure 124/59 04/13/2018 7:50 AM CDT Pulse 70 04/13/2018 7:54 AM CDT Temperature 36.4 ??C (97.5 ??F) 04/13/2018 6:00 AM CDT Respiratory Rate 14 04/13/2018 7:54 AM CDT Oxygen Saturation 100% 04/13/2018 7:54 AM CDT Inhaled Oxygen Concentration - - Weight 82.1 kg (181 lb) 04/13/2018 5:00 AM CDT Height 182.9 cm (6') 04/12/2018 3:44 PM CDT Body Mass Index 24.58 04/12/2018 3:44 PM CDT documented in this encounter Discharge Summaries Luis Varghese APRN, C.NDonna. - 04/15/2018 11:34 AM CDT INPATIENT DISCHARGE SUMMARY BRIEF OVERVIEW Discharge Provider: Luis Varghese APRN, C.NEricka Primary Care Providers: Cintia Cobb M.D. ([facility]) [address] [place] [id number] Primary Care Provider Primary Care Provider Admission Date: 04/12/2018 Discharge Date: 04/15/2018 PRINCIPAL DIAGNOSIS Gastrointestinal hemorrhage Acute blood loss anemia Headache SECONDARY DIAGNOSES Atrial fibrillation status post pacemaker placement Type 2 diabetes-resolved Status post gastric bypass Hypertension Operative Procedures: Scheduled (Monica), Completed (Comp) or Canceled (Can) Case IDs Date Procedure Surgeon Location Status [id number] 04/13/18 ESOPHAGOGASTRODUODENOSCOPY Omar Stone M.D. [facility] Comp No past medical history on file. Past Surgical History: Procedure Laterality Date ??? BYPASS OF STOMACH N/A 11/19/2014 Gastric bypass ??? CARDIAC PACEMAKER PLACEMENT ??? CHONDRECTOMY OF SPINE N/A 02/19/1989 Discectomy ??? CYSTOSCOPY kidney stone ??? ESOPHAGOGASTRODUODENOSCOPY N/A 04/13/2018 Procedure: ESOPHAGOGASTRODUODENOSCOPY; Surgeon: Omar Stone M.D.; Location: [facility] ??? LAPAROSCOPIC ASSISTED - GASTRIC BYPASS N/A 11/21/2014 Laparoscopic assisted - Gastric bypass ??? OTHER CONVERTED SHX (SEE COMMENT) N/A 01/19/2017 >Implantation of dual-chamber permanent pacemaker. ??? OTHER SURGICAL HISTORY cystoscopy ??? UPPER GASTROINTESTINAL ENDOSCOPY N/A 11/21/2014 Upper gastrointestinal endoscopy DISCHARGE DISPOSITION Home or Self Care [1] OUTPATIENT FOLLOW UP Future Appointments Date Time Provider Department Center 06/01/2018 6:30 PM Cintia Cobb M.D. [facility] DISCHARGE MEDICATIONS Discharge Medications TAKE these medications acetaminophen 500 mg tablet Commonly known as: TYLENOL Take 1,000 mg by mouth 3 (three) times a day as needed for pain. allopurinol 300 mg tablet Commonly known as: ZYLOPRIM Take 1 tablet (300 mg total) by mouth daily. cyanocobalamin (vitamin B-12) 1,000 mcg/mL kit Inject 1,000 mcg under the skin every 30 (thirty) days. DULoxetine [address] capsule Commonly known as: CYMBALTA Take 2 capsules (40 mg total) by mouth 2 (two) times a day. FLINTSTONES COMPLETE ORAL Take 2 tablets by mouth 2 (two) times a day. furosemide 40 mg tablet Commonly known as: LASIX Take 1 tablet (40 mg total) by mouth daily. omeprazole 20 mg capsule Commonly known as: PriLOSEC Take 1 capsule (20 mg total) by mouth 2 (two) times a day before breakfast and dinner. Take BID for 1 month then take daily indefinitely. SENNA WITH DOCUSATE SODIUM 8.6-50 mg per tablet Take 2 tablets by mouth 2 (two) times a day. Generic drug: sennosides-docusate sodium DETAILS OF HOSPITAL STAY REASON FOR ADMISSION Melena stool, syncope HOSPITAL COURSE 57-year-old male admitted to hospital through [facility] with report of melena and several episodes of syncope and fall. Hemoglobin found to be 2.9. He was transfused with packedred blood cells. IV Protonix administered. Serial hemoglobins checked. Gastroenterology was consulted and performed a semi-urgent upper GI endoscopy. A gastrojejunal ulceration with visible vessel was found. Two clips were placed. Patient's hemoglobin was trended and remained stable. Patient did complain of head and neck pain. A CT of head and neck was obtained which ruled out acute traumatic findings. Patient had some trouble with ambulation while in hospital. Physical therapy assessed patient who felt there were no deficits or skilled needs. Patient was discharged to home instructed to follow up with primary care provider next week. Also instructed to use Prilosec twice daily for next month at which time he may decrease to once daily which should be taken indefinitely. Remainder of patient's medical comorbid conditions were stable throughout hospitalization. CONSULTS ORDERED DURING THIS ADMISSION IP CONSULT TO CARE MANAGEMENT IP CONSULT TO GASTROENTEROLOGY IP CONSULT TO DIETITIAN DATA AND RESULTS Recent Results (from the past 24 hour(s)) Hemoglobin Collection Time: 04/14/18 4:11 PM Result Value Hemoglobin 7.5 (L) CBC with Differential, Blood Collection Time: 04/15/18 6:13 AM Result Value Hemoglobin 7.4 (L) Hematocrit 22.8 (L) Erythrocytes 2.65 (L) MCV 86.0 RBC Distrib Width 18.4 (H) Platelet Count 149 Leukocytes 7.3 Neutrophils 5.04 Lymphocytes 1.37 Monocytes 0.69 Eosinophils 0.16 [address] Head Neck Angiogram With Iv Contrast Result Date: 04/14/2018 Impression: IMPRESSION: 1. No evidence of occlusion, significant stenosis, aneurysm or dissection within the major arterial circulation of the head or neck by CTA. 2. No acute intracranial hemorrhage, mass effect or specific CT evidence of acute infarct. CONDITION AT DISCHARGE: Stable. DIET: Resume previous. Encouraged iron rich foods ACTIVITY: As tolerated. Encourage daily exercise. NEW MEDICAL DEVICES / EQUIPMENT: None CODE STATUS: DNR/DNI POA ACTIVATION: Makes own decisions. FOLLOW UP APPOINTMENTS: See above. Primary medical provider, 3-5 days. A hemoglobin should be checked at this visit TEST RESULTS PENDING AT DISCHARGE: Pathology report from endoscopy pending. ACTIVE ISSUES REQUIRING FOLLOW UP WITH PRIMARY PROVIDER: ADMINISTRATIVE Face to Face Visit: Today I spent over 30 minutes in face to face management of the patient, evaluation and coordination of care. documented in this encounter Discharge Instructions AttachmentsThe following attachments cannot be sent through Care Everywhere. Acute Upper and Lower Gastrointestinal Bleeding (Cameroonian)Food Sources of Iron (Cameroonian)documented in this encounter Medications at Time of [...] 30 (thirty) days. DULoxetine (CYMBALTA) 20 Take 2 capsules (40 180 capsule 3 0 04/06/2018 04/21/[address] capsule mg total) by mouth 2 (two) times a day. furosemide (LASIX) 40 mg Take 1 tablet (40 90 tablet 3 07/0906/01/2018 tablet mg total) by mouth daily. omeprazole (PriLOSEC) 20 Take 1 capsule (20 30 capsule 2 05/201804/21/2018 mg capsule mg total) by mouth 2 (two) times a day before breakfast and dinner. Take BID for 1 month then take daily indefinitely. sennosides-docusate Take 2 tablets by 0 08/12/2019 sodium (SENNA WITH mouth 2 (two) times DOCUSATE SODIUM) 8.6-50 a day. mg per tablet documented as of this encounter Progress Notes Luis Varghese, HAKEEM, C.N.P. - 04/14/2018 4:46 PM CDT SUBJECTIVE Patient continues to complain of a severe headache. At times it is difficult to open his eyes. He reports getting into a argument with the nursing staff along with his last night as he felt rushedto get into the wheelchair. Patient reports mild abdominal tenderness in the left side. He has not had any vomiting. Did have 1 bowel movement this morning with report of Lantus. Is not very hungry butis going to try eating. Review of Systems Please see HPI/Subjective for pertinent positives, otherwise ROS negative Medications allopurinol 300 mg oral Daily DULoxetine 20 mg oral BID pantoprazole 40 mg oral BID before breakfast and dinner OBJECTIVE Weight: 82.3 kg Temperature: [36.3 ??C-37.5 ??C] 37 ??C Heart Rate: [85] 85 Resp Rate: [16-20] 16 Blood Pressure: (122-142)/(57-76) 142/63 SpO2: [96 %-100 %] 100 % Weight: [82.3 kg] 82.3 kg BMI (Calculated): [24.6 kg/m??] 24.6 kg/m?? Pulse Rate: [62-84] 67 Intake/Output Summary (Last 24 hours) at 04/14/18 1646 Last data filed at 04/14/18 1500 Gross per 24 hour Intake 2475 ml Output 2315 ml Net 160 ml Physical Exam GENERAL: Patient is in no distress. Alert and oriented. HEART: Regular rate and rhythm. S1S2. No murmurs, gallops or rubs noted. LUNGS: Respirations easy and unlabored. Clear to auscultation bilaterally. No expiratory wheeze. No accessory muscles of respiration noted. ABDOMEN: Soft with mild tenderness to palpation in the left upper quadrant NEURO: Nonfocal exam EXTREMITIES: No neurovascular compromise. No cyanosis, clubbing or edema. 2+ radial and pedal pulses SKIN: Warm, dry. No rash, bruising, or ulceration. Lab Results Lab Results Component Value Date WBC 7.3 04/14/2018 HGB 7.5 (L) 04/14/2018 HCT 21.8 (L) 04/14/2018 MCV 87.9 04/14/2018 PLT 134 (L) 04/14/2018 Lab Results Component Value Date NA 141 04/14/2018 K 3.8 04/14/2018 CL 106 04/14/2018 HCO3 27 04/14/2018 CREATININE 0.98 04/14/2018 EGFR 84 04/14/2018 BUN 34 (H) 04/14/2018 ANIONGAP 8 04/14/2018 GLUCOSE 149 (H) 04/14/2018 CALCIUM 8.1 (L) 04/14/2018 Lab Results Component Value Date URINESOURCE 11/18/2012 Clean Void Urine CLARITYU Clear 05/12/2015 LEUKOCYTESU Trace (A) 05/12/2015 PROTEINQUALU 29 (H) 11/23/2014 GLUCOSEU Negative 05/12/2015 KETONESU Trace (A) 05/12/2015 SPECGRAV 1.015 05/12/2015 UROBILINOGEN 0.2 05/12/2015 Lab Results Component Value Date ALT 13 04/13/2018 AST 12 04/13/2018 ALKPHOS 41 (L) 04/13/2018 BILITOT 0.7 04/13/[address] Head Neck Angiogram With Iv Contrast Result Date: 04/14/2018 Narrative: EXAM: CT HEAD NECK ANGIOGRAM WITH IV CONTRAST 3D/MIPS: 3D Post- Processing performed on a dependent workstation. COMPARISON: None FINDINGS: CT HEAD: No acute intracranial hemorrhage. No abnormal intracranial mass or fluid collection. Multifocal cerebral white matter hypoattenuation, mildly greater than typical for patient's age, technically nonspecific though likely reflecting chronic microvascular ischemia and/or gliosis related to other prior remote insults. No specific CT evidence of acute ischemia, though CT is limited in evaluation for acute ischemia as most white matter changes are nonspecific. MRI is more sensitive in the detection of acute ischemia. Mild ventricular and sulcal prominence, consistent with mild brain parenchymal volume loss. Visualized portions of the orbits, calvarium and skull base are unremarkable. Intracranial arterial calcification. Incidental left posteriorscalp lipoma. Mild paranasal sinus mucosal thickening, of unlikely significance in the absence of a specific clinical concern. CTA HEAD: Intracranial Carotid Arteries: Bilateral supraclinoid carotid calcification producing mild stenosis. No aneurysm. Anterior Cerebral Arteries: No aneurysm or significant stenosis. Middle Cerebral Arteries: No aneurysm or significant stenosis. Posterior Cerebral Arteries: No aneurysm or significant stenosis. Basilar Artery: No aneurysm, dissection or significant stenosis. Intracranial Vertebral Arteries: No aneurysm, dissection or significant stenosis. Anterior communicating artery: Present. No aneurysm. Right posterior communicating artery: Present. No aneurysm. Left posterior communicating artery: Present. No aneurysm. CTA NECK: Aortic Arch and Great Vessel Origins: Conventional branch anatomy. No aneurysm, dissection or significant stenosis. Carotid Arteries: No aneurysm, dissection or significant stenosis. Cervical Vertebral Arteries: Co-dominant vertebral arteries. No aneurysm, dissection or significant stenosis. Venous: Unremarkable. Non-vascular structures: Left chest wall presumed pacer device. Soft tissues are otherwise unremarkable. Impression: IMPRESSION: 1. No evidence of occlusion, significant stenosis, aneurysm or dissection within the major arterial circulation of the head or neck by CTA. 2. No acute intracranial hemorrhage, mass effect or specific CT evidence of acute infarct. Gastroenterology Image Exam Result Date: 04/13/2018 Narrative: This order has been created and auto-finalized to support the import of images acquired without order. The clinical documentation to support these images can be found on the encounter that produced images. IMPRESSION/REPORT/PLAN Patient Active Problem List Diagnosis ??? Flutter [...] ??? Hyperlipidemia On Treatment ??? Hemorrhage Gastrointestinal 57-year-old male in-hospital gastrointestinal bleeding Acute active Acute gastrointestinal bleeding. Patient underwent upper GI endoscopy yesterday. A gastro jejunal ulcer was identified and treated with clip intervention. This morning hemoglobin did drift from 7.7-7.0. Is possible a dilutional effect although patient did have 1 more melena stool. Blood pressures haveremained stable. Recheck hemoglobin later this afternoon. Acute blood loss anemia. Will start iron supplementation today. Remainder as outlined above. Persistent headache. CT imaging from last night was negative for acute findings. Patient has been refusing Tylenol treatment will encourage to least try today. Neurologic exam is been nonfocal. Is possible struck head and suffered a concussion or traumatic brain injury, however other than headache experiencing no symptoms. Will continue to monitor Weakness and perceived inability to ambulate. With physical therapy see today. With chronic conditions Peripheral neuropathy. Continue duloxetine Status post gastric bypass surgery. Awaiting nutrition consult Discharge disposition. Patient will be cleared to discharge home tomorrow morning pending stable hemoglobin. Geneva Gomez O.T. - 04/14/2018 11:17 AM CDT Spoke w ordering [facility] OT order in error. No skilled OT services provided. Omar Stone M.D. - 04/14/2018 7:22 AM CDT SUBJECTIVE Patient had an incident last night. See nursing note. Patient reports he wasn't ready to get up because he was too dizzy. Still having severe headaches and dizziness. He wonders if he has a concussion due to falling at home. No bowel movements overnight or yesterday. Mild abdominal pain in the epigastric area. No nausea. Tolerating full liquids. OBJECTIVE Current Vital Signs Vitals: 04/14/18 0620 BP: 123/69 Pulse: 63 Resp: 18 Temp: 37.1 ??C SpO2: 99% PHYSICAL EXAM Gen: Lying in bed, looking tired, but very pleasant. Chest: CTA bilaterally Cv: RRR Abd: Soft, mild epigastric tenderness. Extrem: No edema LABS Recent Results (from the past 24 hour(s)) CBC with Differential, Blood Collection Time: 04/14/18 5:55 AM Result Value Hemoglobin 7.0 (L) Hematocrit 21.8 (L) Erythrocytes 2.48 (L) MCV 87.9 RBC Distrib Width 19.3 (H) Platelet Count 134 (L) Leukocytes 7.3 Neutrophils 5.26 Lymphocytes 1.34 Monocytes 0.63 Eosinophils 0.09 Basophils 0.01 BMP (Basic Metabolic Panel) Collection Time: 04/14/18 5:55 AM Result Value Potassium, S 3.8 Sodium, S 141 Chloride, S 106 Bicarbonate, S 27 Anion Gap 8 Bld Urea Nitrog(BUN), S 34 (H) Creatinine, S 0.98 eGFR-Non Black 84 eGFR-Black >90 Calcium, Total 8.1 (L) Glucose, S 149 (H) BUN down from 64 yesterday, 88 the day before. Hgb down from 7.7 DIAGNOSTICS EGD with gastrojejunal ulcer with visible vessel treated with two clips. Biopses for H pylori pending. CT prelim read without bleed ASSESSMENT / PLAN 1. Acute gastrojejunal ulcer with hemorrhage 2. Acute post-hemorrhagic anemia 3. Dizziness secondary to anemia. 4. Headache--concussion vs side effect of PPI. Patient's BUN declining as well as no bowel movements--both good signs the bleeding has significantly slowed. His hgb has dropped a bit. - Continue BID dosing for PPI for at least two weeks, and likely qday indefinitely. - Eventually will need iron replacement, especially with his bypass. - Await biopsies for H pylori. Treat if positive. - Can advance diet. - Hopefully [place]'s will decrease, but there is a chance it could be a side effect of his PPI. Luis Varghese APRN, C.N.P. - 04/13/2018 2:54 PM CDT SUBJECTIVE Patient that following endoscopy procedure. He admits being a little groggy. He does complain of a headache. No abdominal pain. No nausea or vomiting. No dizziness, shortness of breath, or chest pain. Nursing without report of significant overnight events Review of Systems Please see HPI/Subjective for pertinent positives, otherwise ROS negative Medications allopurinol 300 mg oral Daily DULoxetine 20 mg oral BID pantoprazole 40 mg intravenous BID OBJECTIVE Weight: 82.1 kg Temperature: [36 ??C-36.8 ??C] 36.4 ??C Heart Rate: [60-81] 74 Resp Rate: [9-20] 13 Blood Pressure: (103-141)/(59-88) 124/69 SpO2: [92 %-100 %] 98 % Flow Rate (L/min): [0.5 L/min-8 L/min] 0.5 L/min Height: [182.9 cm] 182.9 cm Weight: [80 kg-82.1 kg] 82.1 kg BSA (Calculated - sq m): [2.01 sq meters] 2.01 sq meters BMI (Calculated): [23.9 kg/m??-24.5 kg/m??] 24.5 kg/m?? Pulse Rate: [59-76] 75 Intake/Output Summary (Last 24 hours) at 04/13/18 1454 Last data filed at 04/13/18 1345 Gross per 24 hour Intake 3783.33 ml Output 2325 ml Net 1458.33 ml Physical Exam GENERAL: Patient is in no distress. Alert and oriented. HEART: Regular rate and rhythm. S1S2. No murmurs, gallops or rubs noted. LUNGS: Respirations easy and unlabored. Clear to auscultation bilaterally. No expiratory wheeze. No accessory muscles of respiration noted. ABDOMEN: Soft, no abdominal tenderness with palpation. No peritonitis. No mass. Active bowel sounds in all 4 quadrants. NEURO: Patient is drowsy, exam is otherwise nonfocal EXTREMITIES: Warm and well perfused without edema SKIN: Warm, dry. No rash, bruising, or ulceration. Lab Results Lab Results Component Value Date WBC 9.4 04/13/2018 HGB 7.7 (L) 04/13/2018 HCT 23.3 (L) 04/13/2018 MCV 86.6 04/13/2018 PLT 147 04/13/2018 Lab Results Component Value Date NA 144 04/13/2018 K 4.1 04/13/2018 CL 108 (H) 04/13/2018 HCO3 25 04/13/2018 CREATININE 1.14 04/13/2018 EGFR 70 04/13/2018 BUN 63 (H) 04/13/2018 ANIONGAP 11 04/13/2018 GLUCOSE 176 (H) 04/13/2018 CALCIUM 8.3 (L) 04/13/2018 Lab Results Component Value Date URINESOURCE 11/18/2012 Clean Void Urine CLARITYU Clear 05/12/2015 LEUKOCYTESU Trace (A) 05/12/2015 PROTEINQUALU 29 (H) 11/23/2014 GLUCOSEU Negative 05/12/2015 KETONESU Trace (A) 05/12/2015 SPECGRAV 1.015 05/12/2015 UROBILINOGEN 0.2 05/12/2015 Lab Results Component Value Date ALT 13 04/13/2018 AST 12 04/13/2018 ALKPHOS 41 (L) 04/13/2018 BILITOT 0.7 04/13/2018 Diagnostics Gastroenterology Image Exam Result Date: 04/13/2018 Narrative: This order has been created and auto-finalized to support the import of images acquired without order. The clinical documentation to support these images can be found on the encounter that produced images. IMPRESSION/REPORT/PLAN Patient Active Problem List Diagnosis ??? Flutter [...] ??? Hyperlipidemia On Treatment ??? Hemorrhage Gastrointestinal 57-year-old male in-hospital being treated for acute gastrointestinal bleed. Acute active Acute gastrointestinal bleeding. Initial presenting hemoglobin of 2.9. Patient has received a total of 5 units packed red blood cells. His most recent hemoglobin check was 7.7. Blood pressures remainedstable. Heart rate continues to show appropriately V paced rhythm. Patient underwent upper GI endoscopy this morning per Dr. Stone. A gastrojejunal ulcer was identified with visible vessel. Clip intervention performed. Recommendations to continue twice daily PPI in the form of Protonix for next 4 weeks. Plan to observe patient in hospital 1 more night to ensure hemoglobin stable. Will transfer out of intensive care unit. Acute blood loss anemia setting gastrointestinal bleeding.-as above Hypertension. Blood pressures have remained normotensive. Continue to hold home dosing of Lasix. Neck pain after fall. No complaints of neck pain today Chronic conditions Type 2 diabetes-resolved. Peripheral neuropathy. Continue duloxetine. Status post permanent pacemaker. Telemetry ports have showed appropriately paced rhythm. Will discontinue telemetry following transfer from intensive care unit Status post gastric bypass surgery. Have consulted Nutrition for dietary consult HOSPITAL CARE ISSUES Code status: DNR/DNI IV fluids: Saline lock Activity: As tolerated Diet: Advance to general as tolerated VTE PPX: Nausea: Pain: Tylenol or tramadol if needed GI PPX: Twice daily Protonix Discharge disposition. Patient likely ready to discharge home tomorrow if hemoglobin stable. Adair Rossi P.A.-C. - 04/13/2018 1:00 PM CDT SUBJECTIVE CHIEF COMPLAINT / REASON FOR VISIT No chief complaint on file. HISTORY OF PRESENT ILLNESS Ed Cuauhtemoc Luna is a pleasant 57 y.o. 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 His initial hemoglobin on admission was 2.9 on 04/12. After receiving blood transfusion, his hemoglobin improved and was 7.7 as of thismorning. He had an EGD study this morning which he tolerated well. The study showed presence of his Floyd-en-Y gastrojejunal anastomosis characterize by healthy mucosa. There was one non-bleeding gastrojejunal ulcer with a visible vessel which was the likely site of his bleeding. Two clips were placed at that site. There was also finding of a mild Schatzki ring. Patient is doing overall well this morning. He is somewhat fatigued after the EGD procedure. He has not had any bowel movements this morning. He has been on a clear diet. He is without any fever, chills, chest pain, dyspnea, dizziness, nausea, vomiting, abdominal pain. He has not had any further melena nor any hematochezia. He reported having a mild headache after the EGD procedure which was improving into the morning. Patient Active Problem List Diagnosis ??? Flutter [...] ??? Hyperlipidemia On Treatment ??? Hemorrhage Gastrointestinal No current outpatient prescriptions on file. REVIEW OF SYSTEMS Pertinent items are noted in HPI. OBJECTIVE VITAL SIGNS BP 124/69 (BP Location: Right arm;Upper, Patient Position: Lying) Pulse 75 Temp 36.4 ??C (Temporal) Resp 13 Ht 182.9 cm Wt 82.1 kg SpO2 98% BMI 24.55 kg/m?? PHYSICAL EXAM GENERAL: Patient is in no acute distress. The patient is lying comfortably on the hospital bed, appearing somewhat tired after his morning EGD study. He was able to have a pleasant conversation with me. SKIN: Warm, dry, pink. No rashes noted today. HEART: Regular rate and rhythm. No murmurs, gallops or rubs heard today. LUNGS: Clear to auscultation bilaterally. No expiratory wheeze. Nonlabored breathing. ABDOMEN: Soft. Nontender to palpation. No rebound guarding or rigidity. No organomegaly or mass appreciated. Normal bowel sounds. EXTREMITIES: No edema. Peripheral pulses normal. MENTAL: Appropriate mood and affect. DIAGNOSTICS Reviewed recent diagnostics. Please see HPI for further information. Lab Results Component Value Date WBC 9.4 04/13/2018 HGB 7.7 (L) 04/13/2018 HCT 23.3 (L) 04/13/2018 MCV 86.6 04/13/2018 PLT 147 04/13/2018 ASSESSMENT / PLAN 1. Gastrojejunal ulcer with a visible vessle, non-bleeding 2. Severe acute on chronic anemia, with acute anemia post hemorrhagic 3. Status post Floyd-en-Y gastric bypass, November 2014 Patient is stable and doing overall well status post his morning EGD procedure. His vitals are stable and normal. He appears hemodynamically stable. The EGD showed finding of an ulcer at the gastrojejunal region which was likely the cause of his GI hemorrhage. This was treated with 2 clips. I spent time discussing the findings of the EGD with him, his , and his friend. They were appreciative of the information. I have provided him a copy of the EGD findings with pictures. He has not had any bowel movements this morning. He has had IV Protonix which should continue. He may have diet advanced as tolerated. If his hemoglobin continues to stay stable and he continues to do well without any further melena or hematochezia, he may be ready for discharge the following day pending on hospitalist decision. His Hgb as of this morning was 7.7. He should be on omeprazole 20 mg BIDfor 4 weeks and then continue with omeprazole 20 mg once daily indefinitely as prophylaxis. Providedpatient education on continued NSAID avoidance due to his gastric bypass procedure and risk for ulcer. He already has been avoiding NSAIDs. Patient case was discussed with Dr. Stone who was in agreement with plan. I have answered all of patient's questions to my best ability. No learning barriers present. Patient verbalizes understanding and agreement to today's plan. I would like to emphasize Dr. Stone's comment on 04/12 regarding patient's attitude. Patient presented himself kindly and respectfully this morning. He showed no signs of irritability. He was thankfulfor the care he has received. I personally spent 25 min of a total of 35 minutes face to face with the patient in counseling and discussion and/or coordination of care as described above. Rajinder Peters III, M.D. - 04/13/2018 12:00 AM CDT SUBJECTIVE The patient is located in [facility], room 3109. I have seen, evaluated, and examined the patient via video link as well as reviewed all the pertinent imaging and laboratory data from today, April 13, 2018. In addition, we discussed the patient's plan of care with our multidisciplinary EICU team. OBJECTIVE ASSESSMENT / PLAN #1 Acute blood loss anemia, secondary to gastrointestinal hemorrhage #2 Chronic anemia #3 Diabetes mellitus, type 2 #4 Complete heart block status post permanent pacemaker placement #5 Hypertension Mr. Luna has received appropriate blood cell transfusions. His hemoglobin is now 7.7. Our GI colleagues have seen him and plan on performing an endoscopy today. He is receiving Protonix IV. I have nothing further to add. Please do not hesitate to contact the EICU for further questions or assistance. BILLING: No charge. Job ID: [id number]/[id number] documented in this encounter H&P Notes Luis Varghese APRN, C.N.P. - 04/12/2018 5:25 PM CDT CHIEF COMPLAINT Black or bloody stools HISTORY OF PRESENT ILLNESS 57-year-old male admitted to hospital through [facility] re-presented with 4-6 day history of black and bloody stools. Patient also reports multiple syncopal episodes and falls. As best he can recall he passed out twice on Thursday, once on Thursday, and once on Thursday. He does note some minor neck pain since falling. Patient denies abdominal pain. Does report some nausea. He hasbeen able to eat some small meals and has been drinking water. Denies any chest pain or shortness ofbreath. Also notes that he appears pale and feels tired. Denies alcohol consumption. No NSAID use. Does take Tylenol for chronic knee pain. Has history of Floyd-en-Y gastric bypass in 2014. Has lost a considerable amount of weight since that time. In [facility] hemoglobin was found to be 2.9. Patient was transfused 2 units of packed RBCs and transferred MEDICATIONS Prescriptions Prior to Admission Medication Sig Last Dose ??? allopurinol (for_ZYLOPRIM) 300 mg tablet Take 1 tablet (300 mg total) by mouth daily. Taking ??? cyanocobalamin, vitamin B-12, 1,000 mcg/mL kit Inject 1,000 mcg under the skin every 30 (thirty)days. Taking ??? DULoxetine (CYMBALTA) [address] capsule Take 2 capsules (40 mg total) by mouth 2 (two) times a day. ??? furosemide (LASIX) 40 mg tablet Take 1 tablet (40 mg total) by mouth daily. Taking ??? PEDIATRIC MULTIVITAMIN NO.76 (FLINTSTONES COMPLETE ORAL) Take 1 tablet by mouth 2 (two) times a day. Taking ??? [] predniSONE (DELTASONE) 20 mg tablet Take 2 tablets (40 mg total) by mouth daily for 5 days. ALLERGIES Allergies Allergen Reactions ??? Ciprofloxacin Other (see comments) ??? Haemophilus Influenzae GI intolerance Diarrhea PAST MEDICAL HISTORY No past medical history on file. PAST SURGICAL HISTORY Past Surgical History: Procedure Laterality Date ??? BYPASS OF STOMACH N/A 11/19/2014 Gastric bypass ??? CARDIAC PACEMAKER PLACEMENT ??? CHONDRECTOMY OF SPINE N/A 02/19/1989 Discectomy ??? CYSTOSCOPY kidney stone ??? LAPAROSCOPIC ASSISTED - GASTRIC BYPASS N/A 11/21/2014 Laparoscopic assisted - Gastric bypass ??? OTHER CONVERTED SHX (SEE COMMENT) N/A 01/19/2017 >Implantation of dual-chamber permanent pacemaker. ??? OTHER SURGICAL HISTORY cystoscopy ??? UPPER GASTROINTESTINAL ENDOSCOPY N/A 11/21/2014 Upper gastrointestinal endoscopy SOCIAL HISTORY Social History Social History ??? Marital status: Spouse name: N/A ??? Number of children: N/A ??? 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 Smoking status: Never Smoker ??? Smokeless tobacco: Never Used ??? Alcohol use No ??? Drug use: No ??? Sexual activity: Defer Other Topics Concern ??? Not on file Social History Narrative Lives with . FAMILY HISTORY Family History Problem Relation Age of Onset ??? Hypertension Father ??? Heart failure Father ??? Diabetes Mother ??? Kidney disease Mother ??? Heart attack Mother REVIEW OF SYSTEMS GENERAL: No weight gain, no weight loss, no fever in past month, no chills, no sweats. EENT: No vision changes, no eye pain, no sinus problems, no difficulty swallowing, no hearing difficulty PULMONARY: No shortness of breath, no cough, no wheezing, no sputum, no hemoptysis CARDIAC: no chest pain, no chest pressure, no rapid beating, no irregular beating, GI: Positive for melena : No burning/pain with urination, no difficulty starting stream, no difficulty emptying bladder, no urgency, no hematuria. MUSCULOSKELETAL: Chronic left knee pain unchanged SKIN: Reports being pale NEURO: Syncopal episodes as per HPI ENDOCRINE: No excessive thirst, no excessive bruising. VITAL SIGNS Vitals: 04/12/18 1709 BP: 103/64 Pulse: 74 Resp: 19 Temp: SpO2: 99% PHYSICAL EXAM GENERAL: Patient is in no distress. Alert and oriented. HEENT: Normocephalic. Trachea midline. Oropharynx pink, moist. Sclera white. PERRL HEART: Regular rate and rhythm. S1S2. No murmurs, gallops or rubs noted. LUNGS: Respirations easy and unlabored. Clear to auscultation bilaterally. No expiratory wheeze. No accessory muscles of respiration noted. ABDOMEN: Soft, no abdominal tenderness with palpation. No peritonitis. No mass. Active bowel sounds in all 4 quadrants. NEURO: Exam is nonfocal EXTREMITIES: Lower extremities are cool with palpable pedal pulses. Discoloration consistent with venous stasis is present on bilateral lower extremities. SKIN: Generalized pallor is present. Skin otherwise warm and dry Psych: Patient is a pleasant. Exhibiting appropriate mood and affect LAB RESULTS Lab Results Component Value Date WBC 10.8 (H) 04/12/2018 HGB 5.3 (Crit L) 04/12/2018 HCT 9.2 (L) 04/12/2018 MCV 96.8 04/12/2018 PLT 197 04/12/2018 Lab Results Component Value Date NA 137 04/12/2018 K 4.1 08/04/2017 CL 102 04/12/2018 HCO3 31 (H) 08/04/2017 CREATININE 1.22 04/12/2018 EGFR 64 04/12/2018 BUN 88 (H) 04/12/2018 ANIONGAP 12 04/12/2018 GLUCOSE 227 (H) 04/12/2018 CALCIUM 8.1 (L) 04/12/2018 Lab Results Component Value Date URINESOURCE 11/18/2012 Clean Void Urine CLARITYU Clear 05/12/2015 LEUKOCYTESU Trace (A) 05/12/2015 PROTEINQUALU 29 (H) 11/23/2014 GLUCOSEU Negative 05/12/2015 KETONESU Trace (A) 05/12/2015 SPECGRAV 1.015 05/12/2015 UROBILINOGEN 0.2 05/12/2015 Lab Results Component Value Date ALT 15 04/12/2018 AST 12 04/12/2018 ALKPHOS 38 (L) 04/12/2018 BILITOT <0.2 04/12/2018 DIAGNOSTICS No results found. IMPRESSION/REPORT/PLAN Patient Active Problem List Diagnosis ??? Flutter [...] ??? Hyperlipidemia On Treatment ??? Hemorrhage Gastrointestinal 57-year-old male with history that includes type 2 diabetes with neuropathy, status post Floyd-en-Y gastric bypass surgery, status post permanent pacemaker placement Rhianna hypertension admitted to hospital through [facility] where he presented with complaints of melena on syncope. Hemoglobin was found to be 2.9. Acute active Acute gastrointestinal bleeding. Most recent hemoglobin from February of this year was 10.6. Today 2.9. Patient did receive 2 units of packed red blood cells in [facility]. Also given dose of intravenous Protonix. Will admit to intensive care unit. Patient will be made NPO. Continuetwice daily dosing of Protonix. Recheck hemoglobin upon arrival. Gastroenterology has been made aware patient and are planning to perform endoscopy later this evening. Acute on chronic blood loss anemia secondary to above. Hypertension. Blood pressure been normotensive. Hold home dosing of Lasix in setting of severe anemia. Neck pain after fall. Range of motion intact. Tylenol or tramadol as needed for pain Chronic conditions. Type 2 diabetes-resolved since gastric bypass surgery. Peripheral neuropathy. Continue duloxetine Status post peripheral pacemaker. Telemetry showing appropriately V paced rhythm HOSPITAL CARE ISSUES Code status: DNR/DNI IV fluids: Normal saline at 100 Activity: As tolerated with assist Diet: NPO for now VTE PPX: Nausea: Pain: Tylenol or tramadol GI PPX: IV Protonix b.i.d. documented in this encounter Procedure Notes Omar Stone M.D. - 04/13/2018 7:37 AM CDTAssociated Order(s): UPPER GI ENDOSCOPY [facility] Patient Name: Ed Jeremy Procedure Date: 04/13/2018 7:37 AM Date of : 1960 Age: 57 Gender: Male Procedure: Upper GI endoscopy Providers: Omar Mcgee (Ordering Provider) Referring Provider: Omar Stone Pre-op Diagnoses: Acute post hemorrhagic anemia, Melena Post-op Diagnoses: - Mild Schatzki ring. - Floyd-en-Y gastrojejunostomy with gastrojejunal anastomosis characterized by healthy appearing mucosa. - One non-bleeding gastrojejunal ulcer with a visible vessel. This was the site of his bleeding. Two clips were placed. - No specimens collected. Recommendation: - Await pathology results. - Use Prilosec (omeprazole) 20 mg PO BID. - Advance diet as tolerated. Findings: A mild Schatzki ring (acquired) was found at the gastroesophageal junction. Evidence of a Floyd-en-Y gastrojejunostomy was found. The gastrojejunal anastomosis was characterized by healthy appearing mucosa. This was traversed. The dbfou-vc-hkdtsid limb was characterized by healthy appearing mucosa. The mqrhuiqb-hi-eqaxjdi limb was not examined as it could not be reached. Biopsies were taken with a cold forceps for histology. One non-bleeding superficial ulcer with a visible vessel was found distal to the gastrojejunal anastomosis. The lesion was 6 mm in largest dimension. For hemostasis, two hemostatic clips were successfully placed. There was no bleeding during, or at the end, of the procedure. Medicines: Versed 2 mg IV, Fentanyl 100 micrograms IV, Benzocaine spray Complications: No immediate complications. Estimated blood loss: Minimal. Procedure Details: The patient was seen, evaluated, and history reviewed. Airway and heart and lung exams were performed and were satisfactory for planned sedation care. The risks, benefits and alternatives for the procedure and sedation were discussed and informed consent was obtained. A procedural pause was conducted in the presence of assisting personnel to verify the correct patient identity and procedure to be performed. Throughout the procedure, the patient's blood pressure, pulse, and oxygen saturations were monitored continuously. The Endoscope was introduced under direct vision through the mouth, and advanced to the afferent jejunal loop. The upper GI endoscopy was accomplished with ease. The patient tolerated the procedure well. Sedation: Moderate (conscious) sedation was administered by the endoscopy nurse and supervised by the endoscopist. The patient's oxygen saturation, heart rate, blood pressure and response to care were monitored. Total physician intraservice time was 13 minutes. Omar Stone, 04/13/2018 8:09:47 AM This report has been signed electronically. Number of Addenda: 0 Note Initiated On: 04/13/2018 7:37 AM documented in this encounter Consult Notes Keyla Marino P.T. - 04/14/2018 1:49 PM CDT Consults Physical Therapy Inpatient Evaluation/Treatment SUBJECTIVE Patient's Name: Noemí Luna Medical Diagnosis: Hemorrhage Gastrointestinal [K92.2] Reason for Referral: discharge disposition, GI bleed Onset Date: 04/12/18 Payor: [facility] [place] CARE / Plan: [facility] BLUE PLUS HMO / Product Type: [...] ??? Hyperlipidemia On Treatment ??? Hemorrhage Gastrointestinal Past Surgical History: Procedure Laterality Date ??? BYPASS OF STOMACH N/A 11/19/2014 Gastric bypass ??? CARDIAC PACEMAKER PLACEMENT ??? CHONDRECTOMY OF SPINE N/A 02/19/1989 Discectomy ??? CYSTOSCOPY kidney stone ??? ESOPHAGOGASTRODUODENOSCOPY N/A 04/13/2018 Procedure: ESOPHAGOGASTRODUODENOSCOPY; Surgeon: Omar Stone M.D.; Location: [facility] ??? LAPAROSCOPIC ASSISTED - GASTRIC BYPASS N/A 11/21/2014 Laparoscopic assisted - Gastric bypass ??? OTHER CONVERTED SHX (SEE COMMENT) N/A 01/19/2017 >Implantation of dual-chamber permanent pacemaker. ??? OTHER SURGICAL HISTORY cystoscopy ??? UPPER GASTROINTESTINAL ENDOSCOPY N/A 11/21/2014 Upper gastrointestinal endoscopy Ed Cuauhtemoc Luna is a 57 y.o. male who is referred to physical therapy for evaluation. History of Present Illness: Pt went to [facility] secondary to falling several days in a row. 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 Activity Orders Start Ordered 04/12/18 1614 Activity: Up with Assistance Until discontinued Question: Activity Level: Answer: Up with Assistance 04/12/18 1616 OBJECTIVE Pain Assessment Pain Type: Acute pain Pain Location: Head Pain Descriptors: Aching, Pounding, Headache Pain Onset: Ongoing Pain Frequency: Constant/continuous Measures - Tools AM-PAC Mobility: How much difficulty does the patient currently have??? Turning over in bed (including adjusting bedclothes, sheets and blankets)?: A Little Sitting down on and standing up from a chair with arms (e.g., wheelchair, bedside commode, etc.): A Little Moving from lying on back to sitting on the side of the bed?: A Little AM-PAC Mobility: How much help from another person does the patient currently need??? Moving to and from a bed to a chair: A Little Need to walk in hospital room?: A Little Climbing 3-5 steps with a railing?: A Little AM-PAC Mobility: Score Basic Mobility Raw Score: 18 Basic Mobility Standardized Score: 43.63 CMS 0-100% Score: 46.58 % Basic Mobility CMS Modifier: CK General ROM / Strength Screening ROM - Upper Extremity Screen: Addressed, no concerns noted ROM - Lower Extremity Screen: Impaired left (Sore L knee - present for years) Strength - Upper Extremity Screen: Addressed, no concerns noted Strength - Lower Extremity Screen: Impaired left (Sore left knee - present for years) Balance Static Sitting-Balance: Good (Maintains balance without support) Dynamic Sitting-Balance: Fair (Maintains balance with handheld assistance) Static Standing-Balance: Fair (Maintains balance with handheld assistance) Dynamic Standing-Balance: Fair (Maintains balance with handheld assistance) Gait Assessment # of Assistants: 1 Level of Assistance: Modified Independent Device: Front wheeled walker Distance (m): 10 m Cuing: Verbal Quality: Shuffling Assessment of Gait: Ambulates with slow, shuffling steps but does have peripheral neuropathy and wasgenerally having difficulty moving due to his headache Training/Intervention: Advised pt to use walker for ambulation until he feels more stable/headache has decreased. Response: Pt in agreement Assessment Clinical Impression: Noemí Luna is a 57 y.o. who has been hospitalized 2 day(s) with an admitting diagnosis of: Hemorrhage Gastrointestinal [K92.2]. Prior to hospitalization patient was completing daily activities independently. Currently, patient presents with limitations including general activity due to headache. Rehab potential: Noemí Luna has potential to achieve established physical therapy goals within the time frame outlined below. Therapy findings and recommendations were discussed with nursing staff. Education was provided regarding evaluative findings, diagnosis, prognosis, potential risks and benefits of rehabilitation interventions. Discharge Recommendation: No further therapy recommended Plan Patient agrees with the plan of care and goals. Treatment Plan: PT Frequency: One time visit Plan: Discontinue therapy Complicating Factors: Diabetes (Atrial flutter, peripheral neuropathy, pacemaker, heartblock) Personal Factors: Emotional status Clinical Decision Making: Low: no complicating factors, 1-2 eval elements, stable clinical presentation Other PT Comments: Discussed pt may want to see an MD in the clinic once he is feeling better to have his L knee pain further evaluated BILLING Time Spent with Patient PT Evaluation (min): 15 min Gait Training (min): 10 min Total Timed Units (min): 10 min Total Treatment Time (min): 25 min Functional G-code Worksheet Basic Mobility Raw Score: 18 Basic Mobility Standardized Score: 43.63 CMS 0-100% Score: 46.58 % Basic Mobility CMS Modifier: MARYJO Marino P.T. Leticia Donaldson L.S.W. - 04/13/2018 10:46 AM CDTAssociated Order(s): IP CONSULT TO CARE MANAGEMENT Discharge Planning Assessment SUBJECTIVE Referral Data Referral Reason: (57 year old male, admit diagnosis of anemia, gastrointestinal hemorrhage. May need DME or services upon discharge. Reportedly not allowed back to [facility] due to his behavior. According to nursing, Ed has been behaving here overnight.) Who was present during the interview?: Patient, Spouse, Other (comment) (Spouse, Maddisona([phone]-Ed scoulded Pipo for giving out this number, call his primary number/confirmed with Ed [phone]) neighbor was also present due to the fact that Pipo does not drive.) Hardware Engineer Services Used: No Patient Information Primary Caregiver: Self Support System: Immediate family (Pipo([phone]) Pipo wanted this workers card, although, Ed would not allow this worker to give it to her. Notified Pipo to call and ask for a hospital Filler Shredding Machine Loader at the main number,) Legal Information (Retired) Legal Decision Maker: Self Caregiver Information Caregiver Name: Pipo Caregiver Relationship: Caregiver (should call [phone] first; this number should only be called in a dire emergency per Ed. Caregiver Address: same as patient. Services Requested Ed refused Social Work Services to ask any questions or provide any support regarding discharge planning. Pipo Knapp requested SWS's card, Ed would not allow her to accept it. OBJECTIVE Functional Status (ADLs) Functional Status: (Ed refused Social Work Services to ask any questions or provide any support regarding discharge planning.) Assistive Devices: (Ed refused Social Work Services to ask any questions or provide any support regarding discharge planning. Pipo Knapp requested SWS's card, Ed would not allow her to accept it.) Type of Residence: Private residence Dressing: Independent Feeding: Independent Bathing: Independent Grooming: Independent Toileting: Independent Behavior: Oriented Communication: Can write, Talks, Understands speaking, Understands Cam[place]onian Environmental Supports Home Environment: (Ed refused Social Work Services to ask any questions or provide any support regarding discharge planning. Pipo Knapp requested SWS's card, Ed would not allow her to accept it.) Anticipated Needs/Assistive Devices ADL Anticipated Needs: (Ed refused Social Work Services to ask any questions or provide any support regarding discharge planning. Pipo Knapp requested SWS's card, Ed would not allow her to accept it.) Equipment Anticipated Needs: (Ed refused Social Work Services to ask any questions or provide any support regarding discharge planning. Pipo Knapp requested SWS's card, Ed would not allow her to accept it.) Discharge Planning Strengths: Ability to acquire knowledge, Support of immediate family, Support of extended family/friends Type of Residence: Private residence Support Systems: Spouse Assistance Recommended after Discharge: None Home Care Services: No Anticipated Discharge Destination: Home or Self Care Does the patient need discharge transport arranged?: No ASSESSMENT / PLAN Plan Discharge planning assessment not completed as Ed refused Social Work Services to ask any questions or provide any support regarding discharge planning. Pipo requested [facility]'s card, Ed would not allow her to accept it. Nurse and physician notified of above. Social Work Service (SWS) will continue to follow via communication with physician and nursing to assist in facilitating a safe, timely & appropriate discharge when medically stable. Pipo was receptive to this worker, although, Ed asked this worker to leave his room as he does not trust social workers. [facility] honored Ed's request to leave the room. Signed by: Maria Guadalupe Vela 04/13/2018 Omar Stone M.D. - 04/12/2018 6:08 PM CDTAssociated Order(s): IP CONSULT TO GASTROENTEROLOGY SUBJECTIVE REFERRING PROVIDER Bobby Varghese CNP CHIEF COMPLAINT / REASON FOR VISIT Melena, severe anemia, presumed ulcer HISTORY OF PRESENT ILLNESS Ed Cuauhtemoc Luna is a pleasant 57 y.o. male s/p Floyd-en-Y gastric bypass in November 2014 as well as pacemaker for bradycardia presented with somewhere between 5-10 days of melena. He had three watery black stools on ThursdayApril 10. He had a few on Thursday, and the last bowel movement was this morning at 4:00 a.m.. Patient has passed out 4 times over last several days. His brought him in after calling the nurses line. He presented to the [facility] with a hemoglobin of 2.9. The patient was transfused 2 units of packed red blood cells as well as given 40 mg of IV Protonix. The patient was transferred here for continuation of care and for EGD. Patient is not had EGDs in the past. Hehas struggled with anemia and has intermittently been on iron. He did have episode of melena in May 2014 with hemoglobin drifted down to 8.3. He refused to have an EGD as the sedation would prohibit him from driving that same day. He has also had a difficult time with sedation in the past. He was on Celebrex at the time, and this was discontinued. He has been often on PPIs since. He denies any NSAIDs. He denies any abdominal pain, nausea, vomiting. His appetite has been down. Yoel lost about 150 lb since his gastric bypass surgery. He does feel better after the packed red blood cell transfusion. PAST MEDICAL HISTORY Patient Active Problem List Diagnosis ??? Flutter [...] ??? Hyperlipidemia On Treatment ??? Hemorrhage Gastrointestinal No past medical history on file. Past Surgical History: Procedure Laterality Date ??? BYPASS OF STOMACH N/A 11/19/2014 Gastric bypass ??? CARDIAC PACEMAKER PLACEMENT ??? CHONDRECTOMY OF SPINE N/A 02/19/1989 Discectomy ??? CYSTOSCOPY kidney stone ??? LAPAROSCOPIC ASSISTED - GASTRIC BYPASS N/A 11/21/2014 Laparoscopic assisted - Gastric bypass ??? OTHER CONVERTED SHX (SEE COMMENT) N/A 01/19/2017 >Implantation of dual-chamber permanent pacemaker. ??? OTHER SURGICAL HISTORY cystoscopy ??? UPPER GASTROINTESTINAL ENDOSCOPY N/A 11/21/2014 Upper gastrointestinal endoscopy MEDICATIONS Current Facility-Administered Medications on File Prior to Encounter Medication ??? [COMPLETED] pantoprazole 40 mg in NaCl 0.9% IVPB (PROTONIX) ??? [DISCONTINUED] sodium chloride injection 10 mL ??? [DISCONTINUED] sodium chloride injection 3 mL ??? [DISCONTINUED] sodium chloride injection 3 mL Current Outpatient Prescriptions on File Prior to Encounter Medication Sig ??? allopurinol (for_ZYLOPRIM) 300 mg tablet Take 1 tablet (300 mg total) by mouth daily. ??? cyanocobalamin, vitamin B-12, 1,000 mcg/mL kit Inject 1,000 mcg under the skin every 30 (thirty)days. ??? DULoxetine (CYMBALTA) [address] capsule Take 2 capsules (40 mg total) by mouth 2 (two) times a day. (Patient taking differently: Take 20 mg by mouth 2 (two) times a day. ) ??? furosemide (LASIX) 40 mg tablet Take 1 tablet (40 mg total) by mouth daily. ??? PEDIATRIC MULTIVITAMIN NO.76 (FLINTSTONES COMPLETE ORAL) Take 2 tablets by mouth 2 (two) times aday. ??? [] predniSONE (DELTASONE) 20 mg tablet Take 2 tablets (40 mg total) by mouth daily for 5 days. ALLERGIES Allergies Allergen Reactions ??? Ciprofloxacin Other (see comments) Genital swelling ??? Haemophilus Influenzae GI intolerance Diarrhea SOCIAL HISTORY Social History Substance Use Topics ??? Smoking status: Never Smoker ??? Smokeless tobacco: Never Used ??? Alcohol use No . His gives most of the history. 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 FAMILY HISTORY Family History Problem Relation Age of Onset ??? Hypertension Father ??? Heart failure Father ??? Diabetes Mother ??? Kidney disease Mother ??? Heart attack Mother REVIEW OF SYSTEMS Gen: No fevers or chills. 150 lb weight loss after his bypass surgery. Pulm: No cough or shortness of breath CV: No chest pain; positive dyspnea on exertion. Has pacemaker, and is dependent on this. GI: See HPI. Has had some intermittent dysphagia. Otherwise negative Neuro: Several syncopal episodes over last few days. Complete 14-point systems review otherwise negative. OBJECTIVE BP 103/64 (Patient Position: Standing) Pulse 74 Temp 36.8 ??C (Tympanic) Resp 19 Ht 182.9 cm Wt 80 kg SpO2 99% BMI 23.92 kg/m?? PHYSICAL EXAM Gen: Gaunt but pleasant male sitting up in bed looking tired but otherwise in no distress Eyes: No icterus. Pupils equal and round ENT: Oropharynx clear. Normal dentition. Mallampati class I. Neck: Supple without masses, lymphadenopathy or thyromegaly. Respiratory: Clear to auscultation bilaterally. Pacer in left upper anterior chest. Normal equal chest rise with inspiration bilaterally CV: RRR without murmur; No abdominal bruits; 2+ pedal pulses Abd: Normal bowel sounds. Soft. No abdominal tenderness. No distension. No hepatosplenomegaly. No hernias. Extrem: No edema Skin: No jaundice, spiders or rashes. Warm and dry. Very pale. Psych: Alert and oriented x 3 Neuro: No asterixis. MS: Normal gait; No joint swelling in arms or leg joints with full range of motion. LABS Lab Results Component Value Date WBC 10.8 (H) 04/12/2018 HGB 5.3 (Crit L) 04/12/2018 HCT 9.2 (L) 04/12/2018 MCV 96.8 04/12/2018 PLT 197 04/12/2018 Hgb 2.9 at 11 AM; Hgb 10.6 on March 02. INR 1.0; Cr 1.22; BUN 88 (previously 30 on 12/21/17) IMPRESSION/REPORT / PLAN 1. Severe acute on chronic anemia. The acute anemia appears to be post hemorrhagic. 2. Melena 3. Status post Floyd-en-Y gastric bypass A gastric jejunal anastomotic ulcer would be highest on the differential for causing bleeding. Otherulcers could certainly occur. He has been off of the PPI. He has not been on NSAIDs, but still is atrisk simply because of the surgery. He has had some mild dysphagia as well which always poses a question potential neoplasia. At this point, he is relatively stable with his blood pressure and pulse. He is sitting up been looking in no acute distress. Ideally, it would be reasonable to continue to transfuse him to get his hemoglobin at least up to 7 grams/deciliter. We will keep the patient on clear liquids for tonight, but plan to proceed with EGD tomorrow at 7:30 a.m.. This will also allow us to get him another dose of IVProtonix. Obviously, if he begins to hemorrhage severely tonight, we will come in and emergently do the EGD. Patient is happy with this plan. I reviewed the EGD procedure with the patient as well as his in friend in the room. I answered their questions in entirety. If an ulcer is shown, he will likely need a PPI such as omeprazole 20 mg daily for life. Thank you very much for this consult on this pleasant patient. There have been many notes concerninghis irritability, but he certainly showed no signs of this today. documented in this encounter Nursing Notes Surendra Patino R.N. - 04/15/2018 6:15 PM CDT Compromised Skin Integrity ??? Incisions, wounds, or drain sites healing without S/S of infection Progressing ??? Skin/Tissue integrity maintained or improved Progressing ??? Oral and Nasal mucous membranes remain intact Progressing DISCHARGE PLANNING ??? Patient discharge needs identified Progressing Incontinence and/or Moisture ??? Skin integrity is maintained or improved Progressing INFECTION - ADULT ??? Absence of infection during hospitalization Progressing KNOWLEDGE DEFICIT ??? Patient/family/caregiver demonstrates understanding of disease process, treatment plan, medications, and discharge instructions Progressing PAIN - ADULT ??? PT VERBALIZES/DEMONSTRATES ADEQUATE COMFORT LEVEL OR BASELINE Progressing POTENTIAL OR ACTUAL PRESSURE INJURY-ADULT ??? Manage sensory Perception deficits to maintain and/or improve skin integrity Progressing ??? Maintain optimal skin moisture to ensure or improve skin integrity Progressing ??? Achieve optimal activity and/or mobility to maintain or improve skin integrity Progressing ??? Nutrient intake appropriate for improving, restoring or maintaining skin integrity Progressing ??? Minimize friction and/or shear to maintain or improve skin integrity Progressing SAFETY ADULT ??? Maintain a safe environment Progressing SAFETY ADULT - RISK FOR FALL AND OR FALL INJURY ??? Patient remains free from fall/fall injury Progressing SKIN/TISSUE INTEGRITY ??? Skin/Tissue integrity maintained or improved Progressing ??? Oral and Nasal mucous membranes remain intact Progressing Goals: Patient will remain free from falls. Identify possible barriers to meeting goals/advancing plan of care: none Stability of the patient: Moderately Stable - Low risk of patient condition declining or worsening End of Shift Summary: patient has remained free from falls, pleasant, and minimal stools. Plan for discharge tonight. Diamond Zuniga R.N. - 04/15/2018 6:22 AM CDT Goals: Clinical Goals for the Shift: pt will remain free from falls and have adequate pain contol Identify possible barriers to meeting goals/advancing plan of care: none Stability of the patient: Moderately Stable - Low risk of patient condition declining or worsening End of Shift Summary: Pt remained free from falls. Pt states his headache comes and goes but does not think anything helps for the pain, refused any pain relieving measures. Pt has had appropriate behaviors this shift. Renetta Ye R.N. - 04/14/2018 5:24 AM CDT KNOWLEDGE DEFICIT ??? Patient/family/caregiver demonstrates understanding of disease process, treatment plan, medications, and discharge instructions Not Progressing PAIN - ADULT ??? PT VERBALIZES/DEMONSTRATES ADEQUATE COMFORT LEVEL OR BASELINE Not Progressing Goals: Patient to actively participate in cares. Identify possible barriers to meeting goals/advancing plan of care: motivation, attitude Stability of the patient: Moderately Unstable - Medium risk of patient condition declining or worsening End of Shift Summary: Patient fired nurse. Refusal for meds, ambulation and any or all cares. Provider notified. T Lj Will R.N. - 04/13/2018 8:00 PM CDT On today's date at approximately 2000 hr this nursing concreting supervisor was called by Noemí Luna's nurse regarding his disruptive behavior. Per Renetta, the primary nurse, this patient was refusing to go to [place], was refusing to get out of bed,and was being loud and abusive towards her and his spouse. This concreting supervisor along with the hospitalist Jelena and the patient's nurse entered the room. Patient was found in a semi-Souza's position with a w heelchair sitting next to his bed that looked like it had been moved to the foot of the bed. The patient started out by saying that his nurse had disrespected him by calling him . When asked what he wanted to be called he replied Her Mylo. Patient was advised that she had call him Sir out of respect and several minutes were spent trying to convince him that sirwas not intended tameka disrespectful and that in no way was the nurse going to refer to him as her Mylo. This patient did not appeared to be joking about wanting to be called this. After much time it was agreed thatthe nurse would referred him is Ed. During the 20 min spent with the patient talking about his complaint, why he needed the CT, and his primary nurse Mr. Luna had to be reminded multiple times to stop referring to his primary nurse as The fat one. Mr. Luna had stated that his left because of the nurse was rude to him and her. also stated the nurse got upset with him when he gently moved the wheelchair with his foot. As a follow-up I contacted his Magali Luna ([phone]). Mrs. Luna stated she left because he was complaining about not feeling well and when he gets sick he can be quite difficult. Mrs. Luna stated that the nurse was doing her job and that she was doing it well. Mrs. Luna stated she Wanted to apologized for her 's rude behavior. Renetta Ye R.N. - 04/13/2018 8:00 PM CDT Nurse and NST entered the patient room to assist the patient into a wheelchair. The nurse and the NST explained the process of assisting the patient into the wheelchair and taking the patient down to have a CT completed. The patient initially stated that he couldn't and wouldn't get into the wheelchair. The nurse and NST explained that we were there to assist him and could help him slowly sit up, take time to sit at the edge of bed prior to standing and transferring into the chair. He continued to state no, he wasn't getting up. The patient at that time began to speak negatively to his , instructing her to get a ride home, leave the room and erase her contact information off of the whiteboard, that she no longer needed to be involved. He then began negatively speaking towards the two staff members in the room, shouting, that if we pressure him to get up he will purposely fall onto the floor and have a reason to yudi this hospital. He repeatedly argued with staff about getting up out of bed, he made one attempt at sitting forward. The wheelchair was positioned parallel to the bed, lockedinto place for safe transfer. The patient used his right foot, with force, to purposefully kick the wheelchair, stating it's in my way, I cant get up if it is there. He then layed his head back and threatened to yudi the nurse if she didn't leave the room immediately. With the patient safely in the bed, the nurse and NST left the room. The patient demanded that the concreting supervisor speak with him about the staff members. He stated that nurse is no longer allowed in my room, and I will yudi this hospital if she comes in. The nurse obtained help from the concreting supervisor and provider in dealing with the patients oppositional and demanding behaviors. The PCS and ELECTRIC TOOL REPAIRER had a lengthy discussion with the patient. The patient was assisted down to Radiology, where it took 1 complete hour for him to transfer to the CT scan and back. The patient was rather difficult during that time as well. He was accompanied by the NST. The ELECTRIC TOOL REPAIRER and nurse spoke with the patients , making sure that she felt safe after the words her exchanged with her. She stated yes. She shared that he is a very difficult individual who doesn't want to be told what to do, and will become increasingly oppositional. Upon the patients arrival back to the unit the RN entered the patients room requesting permission toadminister the patients scheduled medications, place the telemetry back on and program the IV pump, as it had been turned off while the patient left the unit. The patient stated no, leave my room, I said I don't want you in here, I will yudi you if you don't leave. The nurse immediately left the room. Another staff member was granted permission by the patient to program the iv pump, however the patient refused the medication and the telemetry. Let is also be stated that the nurse addressed the patient as sir out of respect, however patient perceives that as rude and disrespectful. The patient stated several times that on the grounds of being called sir, the nurse was rude and disrespectful to me. T Anika Cunningham R.N. - 04/13/2018 6:59 PM CDT Compromised Skin Integrity ??? Incisions, wounds, or drain sites healing without S/S of infection Progressing ??? Skin/Tissue integrity maintained or improved Progressing ??? Oral and Nasal mucous membranes remain intact Progressing DISCHARGE PLANNING ??? Patient discharge needs identified Progressing Incontinence and/or Moisture ??? Skin integrity is maintained or improved Progressing INFECTION - ADULT ??? Absence of infection during hospitalization Progressing KNOWLEDGE DEFICIT ??? Patient/family/caregiver demonstrates understanding of disease process, treatment plan, medications, and discharge instructions Progressing PAIN - ADULT ??? PT VERBALIZES/DEMONSTRATES ADEQUATE COMFORT LEVEL OR BASELINE Progressing POTENTIAL OR ACTUAL PRESSURE INJURY-ADULT ??? Manage sensory Perception deficits to maintain and/or improve skin integrity Progressing ??? Maintain optimal skin moisture to ensure or improve skin integrity Progressing ??? Achieve optimal activity and/or mobility to maintain or improve skin integrity Progressing ??? Nutrient intake appropriate for improving, restoring or maintaining skin integrity Progressing ??? Minimize friction and/or shear to maintain or improve skin integrity Progressing SAFETY ADULT ??? Maintain a safe environment Progressing SAFETY ADULT - RISK FOR FALL AND OR FALL INJURY ??? Patient remains free from fall/fall injury Progressing SKIN/TISSUE INTEGRITY ??? Skin/Tissue integrity maintained or improved Progressing ??? Oral and Nasal mucous membranes remain intact Progressing Goals: remain free of falls Identify possible barriers to meeting goals/advancing plan of care: dizzyness, headache Stability of the patient: Moderately Stable - Low risk of patient condition declining or worsening End of Shift Summary: patient remained free of falls this shift, pt continues to c/o severe headacheand blurry vision, bobby ELECTRIC TOOL REPAIRER notified and seen patient at bedside, see new orders. Mandy Tao R.N. - 04/13/2018 5:10 AM CDT Goals: Vitals stable Identify possible barriers to meeting goals/advancing plan of care: acute bleed Stability of the patient: Moderately Unstable - Medium risk of patient condition declining or worsening End of Shift Summary: Vitals stable following 2 units of blood overnight. Janet Ferrer R.N. - 04/12/2018 6:18 PM CDT Goals: Stable vital signs Identify possible barriers to meeting goals/advancing plan of care: GI bleed Stability of the patient: Moderately Unstable - Medium risk of patient condition declining or worsening End of Shift Summary: Hgb 5.3 after 2 units of packed cells. 2nd unit of blood was complete upon arrival from [place]. documented in this encounter Plan of Treatment Pending Results Name Type Priority Associated Diagnoses Date/Ti me Prepare Red Blood Blood Bank Routine 04/12/2018 5:52 PM CDT Cells, 1 Units Prepare Red Blood Blood Bank Routine 04/12/2018 5:52 PM CDT Cells, 2 Units Scheduled Referrals Name Type Priority Associated Diagnoses Order S chedule Post Hospital Outpatient Referral Routine Hemorrhage Expecte d: Visit Primary Gastrointestinal 04/15/2018 Care (Approximate), Expires: 04/15/2021 documented as of this encounter Procedures Procedure Name Priority Date/Time Associated Comments Diagnosis CBC WITH DIFFERENTIAL, B Routine 04/15/2018 Res ults for 6:13 AM CDT this procedure are in the results section. HEMOGLOBIN, B Routine 04/14/2018 Results for 4:11 PM CDT this procedure are in the results section. CBC WITH DIFFERENTIAL, B Routine 04/14/2018 Res ults for 5:55 AM CDT this procedure are in the results section. BASIC METABOLIC PANEL, S/P Routine 04/14/2018 R esults for 5:55 AM CDT this procedure are in the results section. CT HEAD NECK ANGIOGRAM WITH IV RAD - Routine 04/13/2018 Results for CONTRAST (most 10:46 PM CDT this inpatients and procedure are all in the outpatients) results section. ADULT OXYGEN THERAPY Routine 04/13/2018 8:00 PM CDT ADULT OXYGEN THERAPY Routine 04/13/2018 8:01 AM CDT PATHOLOGY SERVICES Routine 04/13/2018 Results f or 7:50 AM CDT this procedure are in the results section. UPPER GI ENDOSCOPY 04/13/2018 Results f or 7:37 AM CDT this procedure are in the results section. ESOPHAGOGASTRODUODENOSCOPY 04/13/2018 Hemorrhage 7:34 AM CDT Gastrointestin al Gastric Bypass Status Post COMPREHENSIVE METABOLIC PANEL, Routine 04/13/2018 Results for S/P 5:24 AM CDT this procedure are in the results section. CBC WITHOUT DIFFERENTIAL, B Routine 04/13/2018 Results for 5:23 AM CDT this procedure are in the results section. TRANSFUSE RED BLOOD CELLS Routine 04/13/2018 3:21 AM CDT TRANSFUSE RED BLOOD CELLS Routine 04/13/2018 1:09 AM CDT HEMOGLOBIN, B Timed 04/13/2018 Results for 12:33 AM CDT this procedure are in the results section. ADULT OXYGEN THERAPY Routine 04/12/2018 8:00 PM CDT TRANSFUSE RED BLOOD CELLS Routine 04/12/2018 6:42 PM CDT PREPARE RED BLOOD CELLS Routine 04/12/2018 5:52 PM CDT PREPARE RED BLOOD CELLS Routine 04/12/2018 5:52 PM CDT TYPE AND SCREEN Routine 04/12/2018 Results for 5:52 PM CDT this procedure are in the results section. HEMOGLOBIN, B Routine 04/12/2018 Results for 4:50 PM CDT this procedure are in the results section. ADULT OXYGEN THERAPY Routine 04/12/2018 4:16 PM CDT ADULT OXYGEN THERAPY Routine 04/12/2018 4:16 PM CDT documented in this encounter Results (ABNORMAL) CBC with Differential (04/21/2018 1:35 PM CDT) [facility] Time Signature Hemoglobin 8.4 (L) 13.2 - 04/21/2018 [facility] 16.6 g/dL 1:44 PM CDT [facility] Hematocrit 26.6 (L) 38.3 - 04/21/2018 [facility] 48.6 % 1:44 PM CDT [facility] Erythrocytes 2.99 (L) 4.35 - 04/21/2018 [facility] 5.65 1:44 PM CDT [facility] x10(12)/L [facility] MCV 89.0 78.2 - 04/21/2018 [facility] 97.9 fL 1:44 PM CDT [facility] RBC Distrib Width 15.4 (H) 11.8 - 04/21/2018 [facility] 14.5 % 1:44 PM CDT [facility] Platelet Count 251 135 - 317 04/21/2018 [facility] x10(9)/L 1:44 PM CDT [facility] Leukocytes 8.8 3.4 - 9.6 04/21/2018 [facility] x10(9)/L 1:44 PM CDT [facility] Neutrophils 5.90 1.56 - 04/21/2018 [facility] 6.45 1:44 PM CDT [facility] x10(9)/L [facility] Lymphocytes 1.91 0.95 - 04/21/2018 [facility] 3.07 1:44 PM CDT [facility] x10(9)/L [facility] Monocytes 0.78 0.26 - 04/21/2018 [facility] 0.81 1:44 PM CDT [facility] x10(9)/L [facility] Eosinophils 0.15 0.03 - 04/21/2018 [facility] 0.48 1:44 PM CDT [facility] x10(9)/L [facility] Basophils 0.05 0.01 - 04/21/2018 [facility] 0.08 1:44 PM CDT [facility] x10(9)/L [facility] Specimen Anatomical Collection Method Collection Time Receive d Time (Source) Location / / Volume Laterality Blood (Blood, 04/21/2018 1:35 PM 04/21/20 18 1:37 Venous) CDT PM CDT Luis Varghese APRN, C.N.P. LAB BLOOD ADD-ON Performing Organization Address City/State/ZIP Code Phon e Number [facility]- [address] [place] [id number] [place] LAB (ABNORMAL) CBC with Differential, Blood (04/15/2018 6:13 AM CDT) [facility] Method Time Signature Hemoglobin 7.4 (L) 13.2 - 04/15/2018 [facility] 16.6 g/dL 6:28 AM CDT [facility] [place] [facility] Hematocrit 22.8 (L) 38.3 - 04/15/2018 [facility] 48.6 % 6:28 AM CDT [facility] [place] [facility] Erythrocytes 2.65 (L) 4.35 - 04/15/2018 [facility] 5.65 6:28 AM CDT HE[facility] x10(12)/L [facility]- [place] [facility] MCV 86.0 78.2 - 04/15/2018 [facility] 97.9 fL 6:28 AM CDT [facility] [place] [facility] RBC Distrib Width 18.4 (H) 11.8 - 04/15/2018 [facility] 14.5 % 6:28 AM CDT [facility] [place] [facility] Platelet Count 149 135 - 317 04/15/2018 [facility] x10(9)/L 6:28 AM T [facility] [place] [facility] Leukocytes 7.3 3.4 - 9.6 04/15/2018 [facility] x10(9)/L 6:28 AM CDT [facility] [place] [facility] Neutrophils 5.04 1.56 - 04/15/2018 [facility] 6.45 6:28 AM CDT HEALTH x10(9)/L [facility]- [place] [facility] Lymphocytes 1.37 0.95 - 04/15/2018 [facility] 3.07 6:28 AM CDT HEALTH x10(9)/L [facility]- [place] [facility] Monocytes 0.69 0.26 - 04/15/2018 [facility] 0.81 6:28 AM CDT HEALTH x10(9)/L [facility]- [place] [facility] Eosinophils 0.16 0.03 - 04/15/2018 [facility] 0.48 6:28 AM CDT [facility]ALTH x10(9)/L [facility]- [place] [facility] Basophils 0.02 0.01 - 04/15/2018 [facility] 0.08 6:28 AM CDT [facility]ALTH x10(9)/L [facility] [place] [facility] Specimen Anatomical Collection Method Collection Time Receive d Time (Source) Location / / Volume Laterality Blood (Blood, 04/15/2018 6:13 AM 04/15/20 18 6:23 Venous) CDT AM CDT Luis Varghese APRN, C.N.P. LAB BLOOD ADD-ON Performing Organization Address City/State/ZIP Code Phon e Number [facility] [address] [place] [address] [place] [facility] (ABNORMAL) Hemoglobin (04/14/2018 4:11 PM CDT) P athologist Signature Hemoglobin 7.5 (L) 13.2 - 16.6 04/14/2018 [facility] g/dL 4:33 PM CDT [facility] Specimen Anatomical Collection Method Collection Time Receive d Time (Source) Location / / Volume Laterality Blood (Blood, 04/14/2018 4:11 PM 04/14/20 18 4:30 Venous) CDT PM CDT Luis Varghese APRN, C.N.P. LAB BLOOD ADD-ON Performing Organization Address City/State/ZIP Code Phon e Number [facility] [address] [place] [address] [place] [facility] (ABNORMAL) BMP (Basic Metabolic Panel) (04/14/2018 5:55 AM CDT) athologist Signature Potassium, S 3.8 3.6 - 5.2 04/14/2018 [facility] mmol/L 6:49 AM [facility] [place] Sodium, S 141 135 - 145 04/14/2018 [facility] mmol/L 6:49 AM [facility] Chloride, S 106 98 - 107 04/14/2018 [facility] mmol/L 6:49 AM [facility] Bicarbonate, S 27 22 - 29 04/14/2018 [facility] mmol/L 6:49 AM [facility] Anion Gap 8 7 - 15 04/14/2018 [facility] 6:49 AM [facility] BUN (Blood Urea 34 (H) 8 - 24 04/14/2018 [facility] Nitrogen), S mg/dL 6:49 AM [facility] Creatinine 0.98 0.74 - 04/14/2018 [facility] 1.35 mg/dL 6:49 AM [facility] [facility] eGFR-Non 84 >=60 04/14/2018 [facility] Black/ mL/min/BSA 6:49 AM [facility] [place] [facility] Comment: ----ADDITIONAL INFORMATION---- Estimated GFR calculated using the 2009 CKD_EPI creatinine equation. eGFR-Black/ >90 >=60 mL/min/BSA 2017 6:[address] [facility] Comment: ----ADDITIONAL INFORMATION---- Estimated GFR calculated using the 2009 CKD_EPI creatinine equation. Calcium, Total, S 8.1 (L) 8.6 - 10.0 mg/dL 04/14/2018 6 :49 AM [facility] [place] [facility] Glucose, S 149 (H) 70 - 140 mg/dL 04/14/2018 6:49 AM [facility] Specimen Anatomical Collection Method Collection Time Receive d Time (Source) Location / / Volume Laterality Blood (Blood, 04/14/2018 5:55 AM 04/14/20 18 6:10 Venous) CDT AM CDT Kelvin Narvaez APRNNEricka LAB BLOOD ADD-ON Performing Organization Address City/State/ZIP Code Phon e Number [facility] [address] [place] [address] [place] [facility] (ABNORMAL) CBC with Differential, Blood (04/14/2018 5:55 AM CDT) [facility] Method Time Signature Hemoglobin 7.0 (L) 13.2 - 04/14/2018 [facility] 16.6 g/dL 6:13 AM [facility] Hematocrit 21.8 (L) 38.3 - 04/14/2018 [facility] 48.6 % 6:13 AM [facility] Erythrocytes 2.48 (L) 4.35 - 04/14/2018 [facility] 5.65 6:13 AM T [facility] x10(12)/L SYSTEM [facility] [place] [facility] MCV 87.9 78.2 - 04/14/2018 [facility] 97.9 fL 6:13 AM [facility] RBC Distrib Width 19.3 (H) 11.8 - 04/14/2018 [facility] 14.5 % 6:13 AM [facility] Platelet Count 134 (L) 135 - 317 04/14/2018 [facility] x10(9)/L 6:13 AM [facility] Leukocytes 7.3 3.4 - 9.6 04/14/2018 [facility] x10(9)/L 6:13 AM [facility] Neutrophils 5.26 1.56 - 04/14/2018 [facility] 6.45 6:13 AM [facility] x10(9)/L [facility] [place] [facility] Lymphocytes 1.34 0.95 - 04/14/2018 [facility] 3.07 6:13 AM [facility] x10(9)/L [facility] [place] [facility] Monocytes 0.63 0.26 - 04/14/2018 [facility] 0.81 6:13 AM CDT [facility] x10(9)/L [facility] [place] [facility] Eosinophils 0.09 0.03 - 04/14/2018 [facility] 0.48 6:13 AM [facility]T HE[facility] x10(9)/L [facility] [place] [facility] Basophils 0.01 0.01 - 04/14/2018 [facility] 0.08 6:13 AM [facility] x10(9)/L [facility] [place] [facility] Specimen Anatomical Collection Method Collection Time Receive d Time (Source) Location / / Volume Laterality Blood (Blood, 04/14/2018 5:55 AM 04/14/20 18 6:10 Venous) CDT AM CDT Kelvin Narvaez APRNNPiliPPili LAB BLOOD ADD-ON Performing Organization Address City/State/ZIP Code Phon e Number [facility] [address] [facility] [place] [address] Head Neck Angiogram with IV Contrast (04/13/2018 10:46 PM CDT) Anatomical Region Laterality Modality Head and Neck, Neuroradiology RST LOS N/A Co mputed Tomography Specimen (Source) Anatomical Collection Method Collection Time Re ceived Time Location / / Volume Laterality 04/14/2018 8:21 AM CDT Impressions 04/14/2018 8:32 AM CDT IMPRESSION: 1. ??No evidence of occlusion, significa nt stenosis, aneurysm or dissection within the major arterial circulation of the head or neck by CTA. 2. ??No acute intracranial hemorrhage, m ass effect or specific CT evidence of acute infarct. Narrative 04/14/2018 8:32 AM CDT EXAM: CT HEAD NECK ANGIOGRAM WITH IV CONTRAST 3D/MIPS: 3D Post-Processing performed on a dependent workstation. COMPARISON: None FINDINGS: CT HEAD: No acute intracranial hemorrhage. No abn ormal intracranial mass or fluid collection. Multifocal cerebral white matter hypoatt enuation, mildly greater than typical for patient's age, technically nonspecif ic though likely reflecting chronic microvascular ischemia and/or gliosis re lated to other prior remote insults. ??No specific CT evidence of acute ischemia, though CT is limited in evaluation for acute ischemia as most white matter ayala ges are nonspecific. MRI is more sensitive in the detection of acute isch emia. Mild ventricular and sulcal prominence, consistent with mild brain parenchymal volume loss. Visualized portions of the orbits, floridalma rium and skull base are unremarkable. Intracranial arterial calcification. Inc idental left posterior scalp lipoma. Mild paranasal sinus mucosal thickening, of unlikely significance in the absence of a specific clinical concern. CTA HEAD: Intracranial Carotid Arteries: Bilateral supraclinoid carotid calcification producing mild stenosis. No aneurysm. Anterior Cerebral Arteries: No aneurysm or significant stenosis. Middle Cerebral Arteries: No aneurysm or significant stenosis. Posterior Cerebral Arteries: No aneurysm or significant stenosis. Basilar Artery: No aneurysm, dissection or significant stenosis. Intracranial Vertebral Arteries: No aneu rysm, dissection or significant stenosis. Anterior communicating artery: Present. No aneurysm. Right posterior communicating artery: Pr esent. No aneurysm. Left posterior communicating artery: Pre sent. No aneurysm. CTA NECK: Aortic Arch and Great Vessel Origins: Co nventional branch anatomy. No aneurysm, dissection or significant stenosis. Carotid Arteries: No aneurysm, dissectio n or significant stenosis. Cervical Vertebral Arteries: Co-dominant vertebral arteries. No aneurysm, dissection or significant stenosis. Venous: Unremarkable. Non-vascular structures: Left chest wall presumed pacer device. Soft tissues are otherwise unremarkable. Procedure Note Jerad Henriquez M.D. - 04/14/2018Formattin g of this note might be different from the original. EXAM: CT HEAD NECK ANGIOGRAM WITH IV CON TRAST 3D/MIPS: 3D Post-Processing performed on a dependent workstation. COMPARISON: None FINDINGS: CT HEAD: No acute intracranial hemorrhage. No abn ormal intracranial mass or fluid collection. Multifocal cerebral white matter hypoatt enuation, mildly greater than typical for patient's age, technically nonspecif ic though likely reflecting chronic microvascular ischemia and/or gliosis re lated to other prior remote insults. No specific CT evidence of acute ischemia, though CT is limited in evaluation for acute ischemia as most white matter ayala ges are nonspecific. MRI is more sensitive in the detection of acute isch emia. Mild ventricular and sulcal prominence, consistent with mild brain parenchymal volume loss. Visualized portions of the orbits, floridalma rium and skull base are unremarkable. Intracranial arterial calcification. Inc idental left posterior scalp lipoma. Mild paranasal sinus mucosal thickening, of unlikely significance in the absence of a specific clinical concern. CTA HEAD: Intracranial Carotid Arteries: Bilateral supraclinoid carotid calcification producing mild stenosis. No aneurysm. Anterior Cerebral Arteries: No aneurysm or significant stenosis. Middle Cerebral Arteries: No aneurysm or significant stenosis. Posterior Cerebral Arteries: No aneurysm or significant stenosis. Basilar Artery: No aneurysm, dissection or significant stenosis. Intracranial Vertebral Arteries: No aneu rysm, dissection or significant stenosis. Anterior communicating artery: Present. No aneurysm. Right posterior communicating artery: Pr esent. No aneurysm. Left posterior communicating artery: Pre sent. No aneurysm. CTA NECK: Aortic Arch and Great Vessel Origins: Co nventional branch anatomy. No aneurysm, dissection or significant stenosis. Carotid Arteries: No aneurysm, dissectio n or significant stenosis. Cervical Vertebral Arteries: Co-dominant vertebral arteries. No aneurysm, dissection or significant stenosis. Venous: Unremarkable. Non-vascular structures: Left chest wall presumed pacer device. Soft tissues are otherwise unremarkable. IMPRESSION: 1. No evidence of occlusion, significant stenosis, aneurysm or dissection within the major arterial circulation of the head or neck by CTA. 2. No acute intracranial hemorrhage, mas s effect or specific CT evidence of acute infarct. Luis Varghese APRN C.N.P. [facility] [place] Pathology Services (04/13/2018 7:50 AM CDT) Component Value Ref Test Analysis Performed At [facility] Range Method Time Signature PATHOLOGY Patient Name: [facility] MR#: [id number] [facility] Submitting Physician: OAMR STONE MD [id number] Specimen #[id number] Performing Lab: ??[facility] ? 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 ??The entire specimen is subm itted in one cassette. MK/tc ?? Diagnosis Stomach, biopsy: NORMAL FUNDIC MUCOSA. ??NEGATIVE FOR HELICOBACTER PYLORI ( MUNOSTSAVANNAH). Electronically Signed By BEATRICE VILLAR MD - 04/14/2018 pjs/04/14/2018 Specimen (Source) Anatomical Collection Method Collection Time Re ceived Time Location / / Volume Laterality Biopsy (Stomach) 04/13/2018 7:50 AM CDT Omar Stone M.D. LAB SURG PATH ORDERABLES Performing Organization Address City/State/ZIP Code Phon e Number [facility] [address] [facility] [place] [address] UPPER GI ENDOSCOPY (04/13/2018 7:37 AM CDT) Specimen (Source) Anatomical Location Collection Method / Collectio n Time Received Time / Laterality Volume Narrative This result has an attachment that is no t available. Procedure Note Omar Stone M.D. - 04/13/2018 7:3 7 AM CDT [facility] [place] [facility] Patient Name: Ed Luna Procedure Date: 04/13/2018 7:37 AM Date of : 1960 Age: 57 Gender: Male Procedure: Upper GI endoscopy Providers: Omar Mcgee (Ordering Provider) Referring Provider: Omar Stone Pre-op Diagnoses: Acute post hemorrhagic anemia, Melena Post-op Diagnoses: - Mild Schatzki ring. 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 - One non-bleeding gastrojejunal ulcer with a visible vessel. This was the site of his bleeding. Two clips wer e placed. - No specimens collected. Recommendation: - Await pathology results. - Use Prilosec (omeprazole) 20 mg PO BI D. - Advance diet as tolerated. Findings: A mild Schatzki ring (acquired) was fou nd at the gastroesophageal junction. Evidence of a Floyd-en-Y gastrojejunosto my was found. The gastrojejunal anastomosis was characterized by health y appearing mucosa. This was traversed. The xgxst-ha-zztqevj limb wa s characterized by healthy appearing mucosa. The vptfeods-yx-mgkok um limb was not examined as it could not be reached. Biopsies were lisa en with a cold forceps for histology. One non-bleeding superficial ulcer with a visible vessel was found distal to the gastrojejunal anastomosis . The lesion was 6 mm in largest dimension. For hemostasis, two hemostat ic clips were successfully placed. There was no bleeding during, o r at the end, of the procedure. Medicines: Versed 2 mg IV, Fentanyl 100 micrograms IV, Benzocaine spray Complications: No immediate complication s. Estimated blood loss: Minimal. Procedure Details: The patient was seen, evaluated, and history reviewed. Airway and heart and lung exa ms were performed and were satisfactory for alfonso nned sedation care. The risks, benefits and alternatives fo r the procedure and sedation were discussed a nd informed consent was obtained. A procedural paus e was conducted in the presence of assisting personnel to verify the correct patient identity and procedure to be performed. Throughout the procedure, the patient's blood pressure, pulse, and ox ygen saturations were monitored continuously . The Endoscope was introduced under dire ct vision through the mouth, and advanced to the afferent jejunal loop. The upper GI endoscopy wa s accomplished with ease. The patient francy erated the procedure well. Sedation: Moderate (conscious) sedation was admin istered by the endoscopy nurse and supervised by the endoscopist. The patient's oxygen saturation, heart rate, blood pressure and response to care were monitored. Total physician intraservice time was 13 andreas wandy. Omar Stone, 04/13/2018 8:09:47 AM This report has been signed electronical ly. Number of Addenda: 0 Note Initiated On: 04/13/2018 7:37 AM Omar Stone M.D. GI PROCEDURE ORDERABLES (ABNORMAL) CMP (Comprehensive Metabolic Panel) (04/13/2018 5:24 AM CDT) P athologist Signature Potassium, S 4.1 3.6 - 5.2 04/13/2018 [facility] mmol/L 6:19 AM [facility] [place] [facility] Sodium, S 144 135 - 145 04/13/2018 [facility] mmol/L 6:19 AM [facility] [place] [facility] Chloride, S 108 (H) 98 - 107 04/13/2018 [facility] mmol/L 6:19 AM [facility] [facility] Bicarbonate, S 25 22 - 29 04/13/2018 [facility] mmol/L 6:19 AM [facility] [facility] Anion Gap 11 7 - 15 04/13/2018 [facility] 6:19 AM [facility] [facility] BUN (Blood Urea 63 (H) 8 - 24 04/13/2018 [facility] Nitrogen), S mg/dL 6:19 AM [facility] Creatinine 1.14 0.74 - 04/13/2018 [facility] 1.35 mg/dL 6:19 AM [facility] eGFR-Non 70 >=60 04/13/2018 [facility] Black/ mL/min/BSA 6:19 AM [facility] Comment: ----ADDITIONAL INFORMATION---- Estimated GFR calculated using the 2009 CKD_EPI creatinine equation. eGFR-Black/ 81 >=60 mL/min/BSA 2017 6:[address] [facility] Comment: ----ADDITIONAL INFORMATION---- Estimated GFR calculated using the 2009 CKD_EPI creatinine equation. Calcium, Total, S 8.3 (L) 8.6 - 10.0 04/13/2018 6:19 AM [facility] mg/dL [facility] Glucose, S 176 (H) 70 - 140 mg/dL 04/13/2018 6:[address] [facility] Protein, Total, S 4.9 (L) 6.3 - 7.9 g/dL 04/13/2018 6:[address] [facility] Albumin, S 3.3 (L) 3.5 - 5.0 g/dL 04/13/2018 6:[address] [facility] Aspartate 12 8 - 48 U/L 04/13/2018 6:19 AM [facility] Amin[facility] ([facility]), S [facility] Alkaline Phosphatase, S 41 (L) 45 - 115 U/L 04/13/2018 6: [address] [facility] Alanine Aminotransferase 13 7 - 55 U/L 04/13/2018 6:1 9 AM [facility] (ALT), S [facility] Bilirubin, Total, S 0.7 <=1.2 mg/dL 04/13/2018 6:[address] [facility] Specimen Anatomical Collection Method Collection Time Receive d Time (Source) Location / / Volume Laterality Blood (Blood, 04/13/2018 5:24 AM 04/13/20 18 5:34 Venous) CDT AM CDT Jess Hernandez M.D. LAB BLOOD ADD-ON Performing Organization Address City/State/ZIP Code Phon e Number [facility] [place] [address] [place] [facility] (ABNORMAL) CBC without Differential (04/13/2018 5:23 AM CDT) [facility] Method Time Signature Hemoglobin 7.7 (L) 13.2 - 04/13/2018 [facility] 16.6 g/dL 5:37 AM CDT [facility] Hematocrit 23.3 (L) 38.3 - 04/13/2018 [facility] 48.6 % 5:37 AM CDT [facility] Erythrocytes 2.69 (L) 4.35 - 04/13/2018 [facility] 5.65 5:37 AM CDT [facility] x10(12)/L [facility] MCV 86.6 78.2 - 04/13/2018 [facility] 97.9 fL 5:37 AM CDT [facility] RBC Distrib Width 18.6 (H) 11.8 - 04/13/2018 [facility] 14.5 % 5:37 AM T [facility] Platelet Count 147 135 - 317 04/13/2018 [facility] x10(9)/L 5:37 AM T [facility] Leukocytes 9.4 3.4 - 9.6 04/13/2018 [facility] x10(9)/L 5:37 AM T [facility] Specimen Anatomical Collection Method Collection Time Receive d Time (Source) Location / / Volume Laterality Blood (Blood, 04/13/2018 5:23 AM 04/13/20 18 5:34 Venous) CDT AM CDT Jess Hernandez M.D. LAB BLOOD ADD-ON Performing Organization Address City/State/ZIP Code Phon e Number [facility] [place] [address] [place] [facility] Transfuse Red Blood Cells (04/13/2018 5:02 AM CDT) Jelena Crystal APRN, C.N.P., M.S.N. BLOOD TRANSFUSION O RDERABLES Transfuse Red Blood Cells : , 2 Units (04/13/2018 5:02 AM CDT) Jelena Crystal APRN, C.N.P., M.S.N. BLOOD TRANSFUSION O RDERABLES Transfuse Red Blood Cells (04/13/2018 3:18 AM CDT) Jelena Crystal APRN, C.N.P., M.S.N. BLOOD TRANSFUSION O RDERABLES (ABNORMAL) Hemoglobin (04/13/2018 12:33 AM CDT) P athologist Signature Hemoglobin 5.6 (CL) 13.2 - 16.6 04/13/2018 [facility] g/dL 12:44 AM CDT [facility] [place] [facility] Specimen Anatomical Collection Method Collection Time Receive d Time (Source) Location / / Volume Laterality Blood (Blood, 04/13/2018 12:33 04/13/2018 Venous) AM CDT 12:38 AM CDT Luis Varghese APRN, C.N.P. LAB BLOOD ADD-ON Performing Organization Address City/State/ZIP Code Phon e Number [facility] [address] [facility] [place] [address] [place] [facility] Transfuse Red Blood Cells (04/12/2018 9:35 PM CDT) Luis Varghese APRN, C.N.P. BLOOD TRANSFUSION ORDER DESEAN Transfuse Red Blood Cells : , 1 Units (04/12/2018 9:35 PM CDT) Luis Varghese APRN, C.N.P. BLOOD TRANSFUSION ORDER DESEAN Type and Screen (with reflex Antibody ID) (04/12/2018 5:52 PM CDT) [facility] Method Time Signature ABO Group A 04/12/2018 [facility] 6:15 PM CDT [facility] [place] [facility] Rh Type POS 04/12/2018 [facility] 6:15 PM CDT [facility] [place] [facility] Antibody Screen NEG 04/12/2018 [facility] 6:28 PM CDT [facility] [place] [facility] Type & Screen 04/15/2018 04/12/2018 [facility] Expiration 23:59 6:28 PM CDT [facility] [place] [facility] ELXM Eligible Y 04/12/2018 [facility] 6:28 PM CDT [facility] Specimen Anatomical Collection Method Collection Time Receive d Time (Source) Location / / Volume Laterality Blood (Blood, 04/12/2018 5:52 PM 04/12/20 18 5:56 Venous) CDT PM CDT Omar Stone M.D. LAB BLOOD BANK TEST ORDERABL ES Performing Organization Address City/State/ZIP Code Phon e Number [facility] [place] [address] [place] [facility] (ABNORMAL) Hemoglobin (04/12/2018 4:50 PM CDT) P athologist Signature Hemoglobin 5.3 (CL) 13.2 - 16.6 04/12/2018 [facility] g/dL 5:02 PM CDT [facility] Specimen Anatomical Collection Method Collection Time Receive d Time (Source) Location / / Volume Laterality Blood (Blood, 04/12/2018 4:50 PM 04/12/20 18 4:54 Venous) CDT PM CDT Luis Varghese APRN, C.N.P. LAB BLOOD ADD-ON Performing Organization Address City/State/ZIP Code Phon e Number [facility] [address] [place] [facility] documented in this encounter Visit Diagnoses Diagnosis Hemorrhage Gastrointestinal - Primary Gastric Bypass Status Post Gastric Bypass Status Post Hemorrhage Gastrointestinal Gastric Bypass Status Post documented in this encounter Admitting Diagnoses Diagnosis Hemorrhage Gastrointestinal Gastric Bypass Status Post documented in this encounter Administered Medications Inactive Administered Medications - up to 3 most recent administrations Medication Order MAR Action Action Date Dose Rate Site acetaminophen tablet 1,000 mg Given 04/14/2018 4:58 PM CDT 1,000 mg (TYLENOL) 1,000 mg, oral, 3 times daily PRN, moderate pain or score 4-6 of 10, Starting on Thu04/12/18 at 1741 Given 04/12/2018 7:23 PM CDT 1,000 mg acetaminophen tablet 650 mg (TYLENOL) 650 mg, oral, Every 4 hours PRN, headaches, Starting o n Thu04/12/18 at 1636 allopurinol tablet 300 mg (ZYLOPRIM) Given 04/15/2018 8:52 AM CDT 300 mg 300 mg, oral, Daily, First dose on Thu04/13/18 at 0900, For 115 days, Drug Monitoring Program: Pharmacist to adjust medication order based on comorbities and indication. Given 04/14/2018 7:33 AM CDT 300 mg Given 04/13/2018 11:45 AM CDT 300 mg naloxone injection 0.2 mg (NARCAN) 0.2 mg, intravenous, As needed, respirat ory depression, Starting on Thu04/12/18 at 1637, For respiratory rate less than 8 b reaths per minute or RASS score of -3, -4, -5. Apply oxygen to keep oxygen saturati ons greater than 90% and notify service. pantoprazole DR tablet 40 mg (PROTONIX) Given 04/15/2018 4:42 PM CDT 40 mg 40 mg, oral, 2 times daily before breakfast and dinner, First dose on Thu04/13/18 at 1600, pantoprazole 40 mg oral daily was interchanged for omeprazole 20 or 40 mg oral daily Swallow whole. Do NOT crush, chew, or split tablet. Given 04/15/2018 6:16 AM CDT 40 mg Given 04/14/2018 4:58 PM CDT 40 mg sodium chloride injection 10 mL Given 04/13/2018 9:04 PM CDT 10 mL 10 mL, intravenous, As needed, line care, Starting on Thu04/13/18 at 1939 traMADol tablet 50 mg (ULTRAM) Given 04/14/2018 4:58 PM CDT 50 mg 50 mg, oral, Every 6 hours PRN, moderate pain or score 4-6 of 10, Starting on Thu04/12/18 at 1636, Drug Monitoring Program: Pharmacist to adjust medication order based on comorbities and indication. Given 04/14/2018 9:08 AM CDT 50 mg Given 04/12/2018 5:14 PM CDT 50 mg documented in this encounter Active and Recently Administered Medications Times are shown in CDT. Scheduled Medication Order 04/13/2018 04/14/2018 04/15/2018 allopurinol tablet 300 mg (ZYLOPRIM) 0734 (MAR Hold - Provider: Transfer Provider, Automatic - Reason: Patient not available)0815 (MAR Unhold - Provider: Transfer Provider, Automatic)1145 (Given - Provider: Michell M Mujica, R.N.) 0733 (Given - Provider: Surendra Patino R.N.)0900 (Canceled Entry - Provider: Surendra Patino R.N.) 0852 (Given - Provider: Surendra rivas R.N.) 300 mg, oral, Daily, First dose on Thu at 0900, For 115 days, Drug Monitoring Program: Pharmacist to adjust medication order based on comorbities and indication. DULoxetine DR capsule 20 mg (CYMBALTA) 0734 (NOV Hold - Provider: Transfer Provider, Automatic - Reason: Patient not available)0815 (NOV Unhold - Provider: Transfer Provider, Automatic)1145 (Not Given - Provider: Michell Mujica RPiliNPili - Reason: Patient/family refused) 0900 (Canceled Entry - Provider: Surendra Patino R.N.)2100 (Not Given - Provider: Diamond Zuniga, R.N. - Reason: Patient/family refused) 0900 (Not Given - Provider: Surendra herman R.N. - Reason: Patient/family refused) 20 mg, oral, 2 times daily, First dose on Thu04/12/18 a t 2100 2100 (Not Given - Provider: Mandy Tao R.N. - Reason: Patient/family refused) pantoprazole DR tablet 40 mg (PROTONIX) 1554 (Given - Provider: Anika Cunningham RPiliN.) 0733 (Given - Provider: Surendra rivas R.N.)1658 (Given - Provider: uSrendra Patino RKevin.) 0616 (Given - Provider: Diamond Zuniga, R.N.)1642 (Given - Provider: Surendra Patino R.N.) 40 mg, oral, 2 times daily before breakf ast and dinner, First dose on Thu04/13/18 at 1600, pantoprazole 40 mg oral daily was interchanged for omeprazole 20 or 40 mg oral daily Swallow whole. Do NOT crush, chew, or split tablet. pantoprazole injection 40 mg (PROTONIX) (CANCELED) 073 4 (NOV Hold - Provider: Transfer Provider, Automatic - Reason: Patient not available)0815 (NOV Unhold - Provider: Transfer Provider, Automatic)0902 (Given - Provider: Michell Mujica RPiliNPili) 40 mg, intravenous, 2 times daily, First dose on Thu04/12/18 at 2100, First dose now if not previously given Administer IV push over 2 minutes. Add 10 mL NS to 40 mg vial for a final concentration of 4 mg/mL. Continuous Medication Order 04/13/2018 04/14/2018 04/15/2018 NaCl 0.9% infusion (CANCELED) 0548 (New Bag - Provider : Mandy Tao RAugustine)1316 (New Bag - Provider: Lesli Sotomayor R.N.)2129 (New Bag - Provider: Mandy Tao R.N.) 0722 (New Bag - Provider: Surendra lake R.N.)0900 (Stopped - Provider: Surendra Patino R.N.) 100 mL/hr, intravenous, at 100 mL/hr, Continuous, Starting Thu at 1630 PRN Medication Order 04/13/2018 04/14/2018 04/15/2018 acetaminophen tablet 1,000 mg (TYLENOL) 0734 (NOV Hold - Provider: Transfer Provider, Automatic - Reason: Patient not available)0815 (NOV Unhold - Provider: Transfer Provider, Automatic)1145 (Not Given - Provider: Michell Mujica RAugustine - Reason: Patient/family refused) 1658 (Given - Provider: Surendra Patino RAugustine) 1,000 mg, oral, 3 times daily PRN, moder ate pain or score 4-6 of 10, Starting Thu04/12/18 at 1741 acetaminophen tablet 650 mg (TYLENOL) 0734 (NOV Hold - Provider: Transfer Provider, Automatic - Reason: Patient not available)0815 (NOV Unhold - Provider: Transfer Provider, Automatic) 650 mg, oral, Every 4 hours PRN, headaches, Starting Thu04/12/18 at 1636 benzocaine 20 % mouth spray (HURRICAINE/TOPEX) (COMPLE TIN) 0743 (Given - Provider: Omar Stone M.D.) Code/trauma/sedation medication, Starting Thu04/13/18 at 0743 fentaNYL injection (SUBLIMAZE) (COMPLETED) 0742 (Given - Provider: Gabriela Escalante R.N.) intravenous, Code/trauma/sedation medication, Starting Thu 8 at 0742 midazolam (PF) injection (VERSED) (COMPLETED) 0742 (Gi cora - Provider: Gabriela Escalante R.N.) Code/trauma/sedation medication, Starting Thu04/13/18 at 0742 naloxone injection 0.2 mg (NARCAN) 0734 (NOV Hold - Pr ovider: Transfer Provider, Automatic - Reason: Patient not available)0815 (NOV Unhold - Provider: Transfer Provider, Automatic) 0.2 mg, intravenous, As needed, respirat ory depression, Starting Thu04/12/18 at 1637, For respiratory rate less than 8 breaths per minute or RASS score of -3, - 4, -5. Apply oxygen to keep oxygen saturations greater than 90% and notify service. sodium chloride 0.9 % flush 55 mL (COMPLETED) 2104 (Gi cora - Provider: Myriam Garcia(R)(CT), R.T.(R)) 55 mL, intravenous, Once in imaging, sergei e care, Starting Thu04/13/18 at 1939, For 1 dose sodium chloride injection 10 mL 2103 (Given - Provider : Myriam Garcia(R)(CT), R.T.(R)) 10 mL, intravenous, As needed, line care, Starting Thu04/13/18 at 1939 traMADol tablet 50 mg (ULTRAM) 0734 (NOV Hold - Provid er: Transfer Provider, Automatic - Reason: Patient not available)0815 (NOV Unhold - Provider: Transfer Provider, Automatic) 0908 (Given - Provider: Surendra rivas R.N.)1658 (Given - Provider: Surendra Patino R.N.) 50 mg, oral, Every 6 hours PRN, moderate pain or score 4-6 of 10, Starting Thu04/12/18 at 1636, Drug Monitoring Program: Pharmacist to adjust medication order based on comorbities and indication. No Frequency Medication Order 04/13/2018 04/14/2018 04/15/2018 iohexol (OMNIPAQUE) 350 mg iodine/mL solution - ADS Ov erride Pull (COMPLETED) 2103 (Given - Provider: Myriam Garcia(Abby)(CT), Myriam(R)) Starting Tu04/13/18 at 1944, For 1 dose, Created by cabinet over ride documented in this encounter Additional Health Concerns Assessment Noted Time PHQ-9 Depression Total Score: 18 02/14/2013 9:53 AM CD T documented as of this encounter Care Teams Dowel Sticker Operator Relationship Specialty Start Date End Date Cintia Cobb M.D. PCP - General 02/19/17 02/20/[address] [place] [phone] documented as of this encounter
--- OUTSIDE RECORDS SUMMARY | 2022-07-29 10:49 | XMS_ITS | Encounter Summary ---
:1960 Author Organization [facility] Address [address] [place] [address] Care Team Providers Name Role Phone Cintia Cobb M.D. Primary Care Provider [phone] Encounter Details Date Type Department Care Team Description 04/21/2018 Hospital Department of [facility], Hemorrhage Encounter Laboratory Luis Fernandez, Gastrointestina l Medicine in [address] [address] [place], [place] [phone] (Work) [phone] Social History Tobacco Use Types Packs/Day Years [...] Name Priority Date/Time Associated Diagnosis Comme nts CBC WITH Routine 04/21/2018 1:35 Hemorrhage Results for this DIFFERENTIAL, B PM CDT Gastrointestinal procedur e are in the results section. documented in this encounter Results (ABNORMAL) CBC with Differential (04/21/2018 1:35 PM CDT) [facility] gist Method Time Signature Hemoglobin 8.4 (L) 13.2 - 04/21/2018 [facility] 16.6 g/dL 1:44 PM CDT [facility] [employer] [facility] Hematocrit 26.6 (L) 38.3 - 04/21/2018 [facility] 48.6 % 1:44 PM CDT [facility] [employer] Erythrocytes 2.99 (L) 4.35 - 04/21/2018 [facility] 5.65 1:44 PM CDT HEALTH x10(12)/L [facility] [employer] [facility] MCV 89.0 78.2 - 04/21/2018 [facility] 97.9 fL 1:44 PM T [facility] RBC Distrib Width 15.4 (H) 11.8 - 04/21/2018 [facility] 14.5 % 1:44 PM CDT [facility] [employer] Platelet Count 251 135 - 317 04/21/2018 [facility] x10(9)/L 1:44 PM CDT [facility] Leukocytes 8.8 3.4 - 9.6 04/21/2018 [facility] x10(9)/L 1:44 PM CDT [facility] Neutrophils 5.90 1.56 - 04/21/2018 [facility] 6.45 1:44 PM CDT [facility] x10(9)/L [facility] Lymphocytes 1.91 0.95 - 04/21/2018 [facility] 3.07 1:44 PM CDT [facility] x10(9)/L [facility] Monocytes 0.78 0.26 - 04/21/2018 [facility] 0.81 1:44 PM CDT HEALTH x10(9)/L [facility] Eosinophils 0.15 0.03 - 04/21/2018 [facility] 0.48 1:44 PM CDT HEALTH x10(9)/L [facility] Basophils 0.05 0.01 - 04/21/2018 [facility] 0.08 1:44 PM CDT [facility] x10(9)/L [facility] Specimen Anatomical Collection Method Collection Time Receive d Time (Source) Location / / Volume Laterality Blood (Blood, 04/21/2018 1:35 PM 04/21/20 18 1:37 Venous) CDT PM CDT Kelvin Narvaez APRNNEric[facility] LAB BLOOD ADD-ON Performing Organization Address City/State/ZIP Code Phon e Number [facility]- [address] [place] [id number] [place] [facility] documented in this encounter Visit Diagnoses Diagnosis Hemorrhage Gastrointestinal documented in this encounter Additional Health Concerns Assessment Noted Time PHQ-9 Depression Total Score: 18 02/14/2013 9:53 AM CD T documented as of this encounter Care Teams Cat Hooker Relationship Specialty Start Date End Date Cintia Cobb M.D. PCP - General 02/19/17 02/20/[address] [place] [address] D[place] Arellano [phone] documented as of this encounter
--- OUTSIDE RECORDS SUMMARY | 2022-07-29 10:49 | XMS_ITS | Encounter Summary ---
:1960 Author Organization [facility] Address [address] [place] [address] Care Team Providers Name Role Phone Cintia Cobb M.D. Primary Care Provider [phone] Reason for Visit Reason Onset Date Comments Post Hospital Follow-up 04/16/2018 Encounter Details Date Type Department Care Team Description 04/16/2018 Clinical Communication [facility].N[facility] Follow-up [address], in [address] [phone] [facility] [phone] [place], [place] (Work) [phone] Social History Tobacco Use Types Packs/Day Years Used Date Smoking Tobacco: Never Smokeless Tobacco: Never Alcohol Use Standard Drinks/Week Comments No 0 (1 standard drink = 0.6 oz pure alcoho l) Sex Assigned at Date Recorded Not on file documented as of this encounter Miscellaneous Notes Telephone Encounter - Preethi Wagner R.N. - 04/20/2018 9:02 AM CDT Attempted to call patient. Both numbers in chart listed as not available. Telephone Encounter - Laura Mejia R.N. - 04/19/2018 9:14 AM CDT RN again tried to contact pt/pt's emergency contact for hospital follow-up. Both numbers listed as pt's contact numbers were incorrect/not available, message left on pt's emergency contacts phone requesting a return call. Telephone Encounter - Laura Mejia R.N. - 04/16/2018 11:13 AM CDT RN tried to contact pt at both numbers listed on his account, as well as via his /emergency contact. No answer. VM left on Magali's phone requesting return call. Telephone Encounter - Laura Mejia R.N. - 04/16/2018 8:57 AM CDT Discharge Provider: Luis Varghese APRN, C.N.P. Primary Care Providers: Cintia Cobb M.D. (General) [address] [place] [phone] Primary Care Provider Primary Care Provider ?? Admission Date: 04/12/2018 Discharge Date: 04/15/2018 PRINCIPAL DIAGNOSIS Gastrointestinal hemorrhage Acute blood loss anemia Headache ?? SECONDARY DIAGNOSES Atrial fibrillation status post pacemaker placement Type 2 diabetes-resolved Status post gastric bypass Hypertension Follow-up not yet scheduled, per F, she would like pt to be seen Wednesdays04/21/18 12 o'clock check in. Email sent by PCP to pt, no response yet. documented in this encounter Plan of Treatment Not on filedocumented as of this encounter Visit Diagnoses Not on filedocumented in this encounter Additional Health Concerns Assessment Noted Time PHQ-9 Depression Total Score: 18 02/14/2013 9:53 AM CD T documented as of this encounter Care Teams Tabulating Clerk Relationship Specialty Start Date End Date Cintia Cobb M.D. PCP - General 02/19/17 02/20/[id number] [phone] documented as of this encounter
--- OUTSIDE RECORDS SUMMARY | 2022-07-29 10:49 | XMS_ITS | Encounter Summary ---
:1960 Author Organization [facility] Address [address] [place] [address] Care Team Providers Name Role Phone Cintia Cobb M.D. Primary Care Provider [phone] Reason for Referral Outpatient (Routine) - Closed Specialty Diagnoses / Procedures Referred By Contact Refer red To Contact Diagnoses Hemorrhage Gastrointestinal Luis Varghese, [facility] HAKEEM, C.N.P. [address] [place] [address] Referral ID Status Reason Start Date Expiration Date Visits Requ ested Visits Authorized [id number] Closed 04/15/2018 04/15/2019 1 1 Scheduling Instructions We will be contacting you with more info rmation on this referral. An appointment will be scheduled for you. More information i s listed below. Reason for Visit Auth/Cert Specialty Diagnoses / Procedures Referred By Contact Refer red To Contact Diagnoses Hemorrhage Gastrointestinal Anemia Procedures NA Referral ID Status Reason Start Date Expiration Date Visits Requ ested Visits Authorized [id number] 1 1 Encounter Details Date Type Department Care Team Description 04/12/2018 - [facility] Jess Shelby M.D. [address] [place] [id number] Hemorrhage Gastrointestinal (Primary Dx) ; 04/15/2018 [address], [facility] Luis Varghese APRN, C.N.P. [address] [place] [address] Gastric Bypass Status Post [facility], Third Floor [address] [place] [phone] Social History Tobacco Use Types Packs/Day Years Used Date Smoking Tobacco: Never Smokeless Tobacco: Never Alcohol Use Standard Drinks/Week Comments No 0 (1 standard drink = 0.6 oz pure alcoho l) Sex Assigned at Date Recorded Not on file documented as of this encounter Last Filed Vital Signs Vital Sign Reading Time Taken Comments Blood Pressure 120/65 04/15/2018 6:32 PM CDT Pulse 85 04/15/2018 6:32 PM CDT Temperature 36.9 ??C (98.4 ??F) 04/15/2018 6:32 PM CDT Respiratory Rate 20 04/15/2018 6:32 PM CDT Oxygen Saturation 99% 04/15/2018 6:32 PM CDT Ra Inhaled Oxygen Concentration - - Weight 82.2 kg (181 lb 3.5 oz) 04/15/2018 5:47 AM CDT Height 182.9 cm (6') 04/12/2018 3:44 PM CDT Body Mass Index 24.58 04/12/2018 3:44 PM CDT documented in this encounter Discharge Summaries Luis Varghese APRN, C.N.P. - 04/15/2018 11:34 AM CDT INPATIENT DISCHARGE SUMMARY BRIEF OVERVIEW Discharge Provider: Luis Varghese APRN, C.N.P. Primary Care Providers: Cintia Cobb M.D. (General) [address] [place] [phone] Primary Care Provider Primary Care Provider Admission Date: 04/12/2018 Discharge Date: 04/15/2018 PRINCIPAL DIAGNOSIS Gastrointestinal hemorrhage Acute blood loss anemia Headache SECONDARY DIAGNOSES Atrial fibrillation status post pacemaker placement Type 2 diabetes-resolved Status post gastric bypass Hypertension Operative Procedures: Scheduled (Monica), Completed (Comp) or Canceled (Can) Case IDs Date Procedure Surgeon Location Status [id number] 04/13/18 ESOPHAGOGASTRODUODENOSCOPY Omar Stone M.D. [facility] GI [facility] Comp No past medical history on file. Past Surgical History: Procedure Laterality Date ??? BYPASS OF STOMACH N/A 11/19/2014 Gastric bypass ??? CARDIAC PACEMAKER PLACEMENT ??? CHONDRECTOMY OF SPINE N/A 02/19/1989 Discectomy ??? CYSTOSCOPY kidney stone ??? ESOPHAGOGASTRODUODENOSCOPY N/A 04/13/2018 Procedure: ESOPHAGOGASTRODUODENOSCOPY; Surgeon: Omar Stone M.D.; Location: [facility] GI LAB ??? LAPAROSCOPIC ASSISTED - [...] Center 06/01/2018 6:30 PM Cintia Cobb M.D. [facility] SEM[facility] CFERWZ DISCHARGE MEDICATIONS Discharge Medications TAKE these [...] COURSE 57-year-old male admitted to hospital through [facility] with report of melena and [...] Everywhere. Acute Upper and Lower Gastrointestinal Bleeding (Belizean)Food Sources of Iron (Belizean)documented in this encounter Medications at Time of [...] as of this encounter Progress Notes Luis Varghese APRN, CPiliNPiliP. - 04/14/2018 4:46 PM CDT SUBJECTIVE Patient [...] 04/14/2018 11:17 AM CDT Spoke w ordering RETAIL MERCHANDISER OT order in error. No skilled OT [...] and/or coordination of care as described above. Lorraine, Rajinder Fountain III, M.D. - 04/13/2018 12:00 AM CDT SUBJECTIVE The patient is located in [facility], room 3109. I have seen, evaluated, and [...] or assistance. BILLING: No charge. Job ID: [id number] documented in this encounter H&P Notes Luis Varghese APRN, C.NDonna. - 04/12/2018 5:25 PM CDT CHIEF COMPLAINT Black or bloody stools HISTORY OF PRESENT ILLNESS 57-year-old male admitted to hospital through [facility] re-presented with 4-6 day history [...] amount of weight since that time. 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 [...] placement Rhianna hypertension admitted to hospital through [facility] where he presented with complaints of melena on syncope. Hemoglobin was found to be 2.9. Acute active Acute gastrointestinal bleeding. Most recent hemoglobin from February of this year was 10.6. Today 2.9. Patient did receive 2 units of packed red blood cells in [facility] department. Also given dose of intravenous [...] 7:37 AM CDTAssociated Order(s): UPPER GI ENDOSCOPY [facility] Patient Name: Noemí Luna Procedure Date: 04/13/2018 7:37 AM Date of : 1960 Age: 57 Gender: Male Procedure: Upper GI endoscopy Providers: Omar Stone, Omar Stone (Ordering Provider) Referring Provider: Omar Stone Pre-op [...] healthy appearing mucosa. This was traversed. The bmfnl-nt-tauxnqi limb was characterized by healthy appearing mucosa. The rlglklhj-jd-axurugj limb was not examined as it could [...] in this encounter Consult Notes Keyla Marino PPiliT. - 04/14/2018 1:49 PM CDT Consults Physical Therapy Inpatient Evaluation/Treatment SUBJECTIVE Patient's Name: Noemí Luna Medical Diagnosis: Hemorrhage Gastrointestinal [K92.2] Reason for Referral: discharge disposition, GI bleed Onset Date: 04/12/18 Payor: [facility] CARE / Plan: [facility] [employer] for [employer] HMO / Product Type: Medicaid HMO / [...] Procedure: ESOPHAGOGASTRODUODENOSCOPY; Surgeon: Omar Stone M.D.; Location: [facility] GI LAB ??? LAPAROSCOPIC ASSISTED - [...] History of Present Illness: Pt went to [facility] secondary to falling several days in a row. Determined pt had a GI bleed and was transferred to [facility] for Surgery Prior Function / Occupational Profile Level of Grig[place]: Independent with ADLs and functional transfers Lives [...] upon discharge. Reportedly not allowed back to [facility] due to his behavior. According to nursing, Ed has been behaving here overnight.) Who was present during the interview?: Patient, Spouse, Other (comment) (Spouse, Pipo([phone]-Ed scoulded Pipo for giving out this number, call his primary number/confirmed with Ed [phone]) neighbor was also present due to the fact that Pipo does not drive.) Compliance Specialist Services Used: No Patient Information Primary Caregiver: Self Support System: Immediate family (, Pipo([phone]) Pipo wanted this workers card, although, Ed would not allow this worker to give it to her. Notified Pipo to call and ask for a hospital Pay Agent at the main number,) Legal Information (Retired) Legal Decision Maker: Self Caregiver Information Caregiver Name: Pipo Caregiver Relationship: Caregiver (should call [phone] first; this number should only be called in a dire emergency per Ed. Caregiver Address: same as patient. Services Requested Ed refused Social Work Services to ask any questions or provide any support regarding discharge planning. , Pipo requested SWS's card, Ed would not allow [...] Communication: Can write, Talks, Understands speaking, Understands [place]an Environmental Supports Home Environment: (Ed refused Social [...] & appropriate discharge when medically stable. Pipo Knapp was receptive to this worker, although, Ed asked this worker to leave his room as he does not trust social workers. SWS honored Ed's request to leave the room. Signed by: Maria Guadalupe Vela 04/13/2018 T Omar Stone M.D. - 04/12/2018 6:08 PM [...] the nurses line. He presented to the [facility] with a hemoglobin of 2.9. The patient was transfused 2 units of packed red blood cells as well as given 40 mg of IV Protonix. The patient was transferred here for continuation of care and for EGD. Patient is not had EGDs in the past. Yoel struggled with anemia and has intermittently been [...] most of the history. 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 Provider notified. Lj Will R.N. - 04/13/2018 8:00 PM CDT On today's date at approximately 2000 hr this nursing on car supervisor was called by Mr. Noemí Luna's nurse regarding his disruptive behavior. Per Renetta, the primary nurse, this patient was refusing to go to CT, was refusing to get out of bed,and was being loud and abusive towards her and his spouse. This on car supervisor along with the hospitalist Jelena and the patient's nurse entered the room. Patient was found in a semi-Souza's position with a w heelchair sitting next to his bed that looked like it had been moved to the foot of the bed. The patient started out by saying that his nurse had disrespected him by calling him sir. When asked what he wanted to be called he replied Her Manitou. Patient was advised that she had call him Sir out of respect and several minutes were spent trying to convince him that sirwas not intended tameka disrespectful and that in no way was the nurse going to refer to him as her Manitou. This patient did not appeared to be [...] a follow-up I contacted his Magali Luna ([phone]). Mrs. Luna stated she left because he [...] the room. The patient demanded that the on car supervisor speak with him about the staff members. He stated that nurse is no longer allowed in my room, and I will yudi this hospital if she comes in. The nurse obtained help from the on car supervisor and provider in dealing with the patients oppositional and demanding behaviors. The PCS and ADVENTURE EDUCATION TEACHER had a lengthy discussion with the patient. The patient was assisted down to Radiology, where it took 1 complete hour for him to transfer to the CT scan and back. The patient was rather difficult during that time as well. He was accompanied by the NST. The ADVENTURE EDUCATION TEACHER and nurse spoke with the patients , [...] nurse was rude and disrespectful to me. Anika Cunningham R.N. - 04/13/2018 6:59 PM [...] to c/o severe headacheand blurry vision, bobby ADVENTURE EDUCATION TEACHER notified and seen patient at bedside, see [...] of blood was complete upon arrival from [facility]. documented in this encounter Plan of Treatment [...] CBC with Differential (04/21/2018 1:35 PM CDT) [facility] Method Time Signature Hemoglobin 8.4 (L) 13.2 - 04/21/2018 [facility] 16.6 g/dL 1:44 PM CDT [facility] Hematocrit 26.6 (L) 38.3 - 04/21/2018 [facility] 48.6 % 1:44 PM CDT [facility] Erythrocytes 2.99 (L) 4.35 - 04/21/2018 [facility] 5.65 1:44 PM CDT HEALTH x10(12)/L [facility] MCV 89.0 78.2 - 04/21/2018 [facility] 97.9 fL 1:44 PM CDT [facility] RBC Distrib Width 15.4 (H) 11.8 - 04/21/2018 [facility] 14.5 % 1:44 PM CDT [facility] Platelet Count 251 135 - 317 04/21/2018 [facility] x10(9)/L 1:44 PM CDT [facility] Leukocytes 8.8 3.4 - 9.6 04/21/2018 [facility] x10(9)/L 1:44 PM CDT [facility] Neutrophils 5.90 1.56 - 04/21/2018 [facility] 6.45 1:44 PM CDT [facility] x10(9)/L [facility] Lymphocytes 1.91 0.95 - 04/21/2018 [facility] 3.07 1:44 PM CDT [facility] x10(9)/L [facility] Monocytes 0.78 0.26 - 04/21/2018 [facility] 0.81 1:44 PM CDT HEALTH x10(9)/L [facility] Eosinophils 0.15 0.03 - 04/21/2018 [facility] 0.48 1:44 PM CDT HEALTH x10(9)/L [facility] Basophils 0.05 0.01 - 04/21/2018 [facility] 0.08 1:44 PM CDT [facility]ALTH x10(9)/L [facility] Specimen Anatomical Collection Method Collection Time Receive d Time (Source) Location / / Volume Laterality Blood (Blood, 04/21/2018 1:35 PM 04/21/20 18 1:37 Venous) CDT PM CDT Luis Varghese APRN, C.N.P. LAB BLOOD ADD-ON Performing Organization Address City/State/ZIP Code Phon e Number [facility] [address] [place] [address] [place] [facility] (ABNORMAL) CBC with Differential, Blood (04/15/2018 6:13 AM CDT) [facility] gist Method Time Signature Hemoglobin 7.4 (L) 13.2 - 04/15/2018 [facility] 16.6 g/dL 6:28 AM CDT [facility] [place] [facility] Hematocrit 22.8 (L) 38.3 - 04/15/2018 [facility] 48.6 % 6:28 AM T [facility] [place] [facility] Erythrocytes 2.65 (L) 4.35 - 04/15/2018 [facility] 5.65 6:28 AM CDT HEALTH x10(12)/L SYSTEM- [facility] [place] [facility] MCV 86.0 78.2 - 04/15/2018 [facility] 97.9 fL 6:28 AM T [facility] [place] [facility] RBC Distrib Width 18.4 (H) 11.8 - 04/15/2018 [facility] 14.5 % 6:28 AM T [facility] [place] [facility] Platelet Count 149 135 - 317 04/15/2018 [facility] x10(9)/L 6:28 AM [facility] [place] [facility] Leukocytes 7.3 3.4 - 9.6 04/15/2018 [facility] x10(9)/L 6:28 AM T [facility] [place] [facility] Neutrophils 5.04 1.56 - 04/15/2018 [facility] 6.45 6:28 AM CDT [facility] x10(9)/L SYSTEM- [place] [facility] Lymphocytes 1.37 0.95 - 04/15/2018 [facility] 3.07 6:28 AM CDT [facility] x10(9)/L [facility]- [place] [facility] Monocytes 0.69 0.26 - 04/15/2018 [facility] 0.81 6:28 AM CDT [facility]ALTH x10(9)/L SYSTEM- [place] [facility] Eosinophils 0.16 0.03 - 04/15/2018 [facility] 0.48 6:28 AM CDT [facility]ALTH x10(9)/L [facility]- [place] [facility] Basophils 0.02 0.01 - 04/15/2018 [facility] 0.08 6:28 AM CDT [facility] x10(9)/L [facility] [place] [facility] Specimen Anatomical Collection Method Collection Time Receive d Time (Source) Location / / Volume Laterality Blood (Blood, 04/15/2018 6:13 AM 04/15/20 18 6:23 Venous) CDT AM CDT Luis Varghese APRN, C.N.P. LAB BLOOD ADD-ON Performing Organization Address City/State/ZIP Code Phon e Number [facility] [address] [place] [address] [place] [facility] (ABNORMAL) Hemoglobin (04/14/2018 4:11 PM CDT) athologist Signature Hemoglobin 7.5 (L) 13.2 - 16.6 04/14/2018 [facility] g/dL 4:33 PM CDT [facility] [place] [facility] Specimen Anatomical Collection Method Collection Time Receive d Time (Source) Location / / Volume Laterality Blood (Blood, 04/14/2018 4:11 PM 04/14/20 18 4:30 Venous) CDT PM CDT Luis Varghese APRN, C.N.P. LAB BLOOD ADD-ON Performing Organization Address City/State/ZIP Code Phon e Number [facility] [address] [facility] [place] [address] [place] [facility] (ABNORMAL) BMP (Basic Metabolic Panel) (04/14/2018 5:55 AM CDT) athologist Signature Potassium, S 3.8 3.6 - 5.2 04/14/2018 [facility] mmol/L 6:49 AM CDT [facility] [place] [facility] Sodium, S 141 135 - 145 04/14/2018 [facility] mmol/L 6:49 AM CDT [facility] [place] [facility] Chloride, S 106 98 - 107 04/14/2018 [facility] mmol/L 6:49 AM CDT [facility] [place] [facility] Bicarbonate, S 27 22 - 29 04/14/2018 [facility] mmol/L 6:49 AM CDT [facility] [place] [facility] Anion Gap 8 7 - 15 04/14/2018 [facility] 6:49 AM [facility] BUN (Blood Urea 34 (H) 8 - 24 04/14/2018 [facility] Nitrogen), S mg/dL 6:49 AM [facility] Creatinine 0.98 0.74 - 04/14/2018 [facility] 1.35 mg/dL 6:49 AM [facility] LAB eGFR-Non 84 >=60 04/14/2018 [facility] Black/ mL/min/BSA 6:49 AM [facility] [place] [facility] Comment: ----ADDITIONAL INFORMATION---- Estimated GFR calculated using the 2009 CKD_EPI creatinine equation. eGFR-Black/ >90 >=60 mL/min/BSA 2017 6:49 AM [facility] Comment: ----ADDITIONAL INFORMATION---- Estimated GFR calculated using the 2009 CKD_EPI creatinine equation. Calcium, Total, S 8.1 (L) 8.6 - 10.0 mg/dL 04/14/2018 6 :49 AM [facility] Glucose, S 149 (H) 70 - 140 mg/dL 04/14/2018 6:49 AM [facility] Specimen Anatomical Collection Method Collection Time Receive d Time (Source) Location / / Volume Laterality Blood (Blood, 04/14/2018 5:55 AM 04/14/20 18 6:10 Venous) CDT AM CDT Luis Varghese APRN, C.N.P. LAB BLOOD ADD-ON Performing Organization Address City/State/ZIP Code Phon e Number [facility] [address] [place] [address] [place] [facility] (ABNORMAL) CBC with Differential, Blood (04/14/2018 5:55 AM CDT) [facility] Method Time Signature Hemoglobin 7.0 (L) 13.2 - 04/14/2018 [facility] 16.6 g/dL 6:13 AM [facility] Hematocrit 21.8 (L) 38.3 - 04/14/2018 [facility] 48.6 % 6:13 AM [facility] LAB Erythrocytes 2.48 (L) 4.35 - 04/14/2018 [facility] 5.65 6:13 AM CDT HEALTH x10(12)/L SYSTEM- [facility] [place] [facility] MCV 87.9 78.2 - 04/14/2018 [facility] 97.9 fL 6:13 AM T [facility] LAB RBC Distrib Width 19.3 (H) 11.8 - 04/14/2018 [facility] 14.5 % 6:13 AM T [facility] LAB Platelet Count 134 (L) 135 - 317 04/14/2018 [facility] x10(9)/L 6:13 AM CDT [facility] LAB Leukocytes 7.3 3.4 - 9.6 04/14/2018 [facility] x10(9)/L 6:13 AM T [facility] LAB Neutrophils 5.26 1.56 - 04/14/2018 [facility] 6.45 6:13 AM CDT HEALTH x10(9)/L [facility] [place] [facility] Lymphocytes 1.34 0.95 - 04/14/2018 [facility] 3.07 6:13 AM CDT [facility] x10(9)/L [facility] [place] [facility] Monocytes 0.63 0.26 - 04/14/2018 [facility] 0.81 6:13 AM CDT HEALTH x10(9)/L SYSTEM [place] [facility] Eosinophils 0.09 0.03 - 04/14/2018 [facility] 0.48 6:13 AM CDT [facility]ALTH x10(9)/L [facility] [place] [facility] Basophils 0.01 0.01 - 04/14/2018 [facility] 0.08 6:13 AM CDT [facility] x10(9)/L [facility] LAB Specimen Anatomical Collection Method Collection Time Receive d Time (Source) Location / / Volume Laterality Blood (Blood, 04/14/2018 5:55 AM 04/14/20 18 6:10 Venous) CDT AM CDT Luis Varghese APRN, C.N.P. LAB BLOOD ADD-ON Performing Organization Address City/State/ZIP Code Phon e Number [facility] [address] [place] [address] Head Neck Angiogram with [...] CT evidence of acute infarct. Luis Varghese APRN, C.N.PPili IMG CT PROCEDURES Pathology Services (04/13/2018 7:50 AM CDT) Component Value Ref Test Analysis Performed At [facility] gist Range Method Time Signature PATHOLOGY Patient Name: NOEMÍ LUNA [facility] MR#: [id number] [facility] Submitting Physician: OMAR STONE MD [id number] Specimen #[id number] Performing Lab: ??[facility] ? [address] [place] [id number] Source: Stomach biopsy - R/O - Helicobacter pylori Clinical History/Pre-Op Gastrointestinal hemorrhage (K92.2), gastric bypass status p ost (Z98.84) Gross Description Received in a container labeled A-stomach are three, 0.2-0 .3 cm in greatest dimensions portions of tissue. ??The entire specimen is subm itted in one cassette. MK/tc ?? Diagnosis Stomach, biopsy: NORMAL FUNDIC MUCOSA. ??NEGATIVE FOR HELICOBACTER PYLORI (IM MUNOSTSAVANNAH). Electronically Signed By BEATRICE VILLAR MD - 04/14/2018 pjs/04/14/2018 Specimen (Source) Anatomical Collection Method Collection Time Re ceived Time Location / / Volume Laterality Biopsy (Stomach) 04/13/2018 7:50 AM CDT Omar Stone M.D. LAB SURG PATH ORDERABLES Performing Organization Address City/State/ZIP Code Phon e Number [address] [address] [facility] (04/13/2018 7:37 AM CDT) Specimen (Source) Anatomical Location Collection Method / Collectio n Time Received Time / Laterality Volume Narrative This result has an attachment that is no t available. Procedure Note Omar Stone M.D. - 04/13/2018 7:3 7 AM CDT [facility] [place] [facility] Patient Name: Noemí Luna Procedure Date: 04/13/2018 7:37 AM Date [...] y appearing mucosa. This was traversed. The lvjwg-on-fqhylev limb wa s characterized by healthy appearing mucosa. The croyumvt-ww-bkqif um limb was not examined as it [...] CMP (Comprehensive Metabolic Panel) (04/13/2018 5:24 AM T) P athologist Signature Potassium, S 4.1 3.6 - 5.2 04/13/2018 [facility] mmol/L 6:19 AM [facility] [employer] LAB Sodium, S 144 135 - 145 04/13/2018 [facility] mmol/L 6:19 AM [facility] [employer] LAB Chloride, S 108 (H) 98 - 107 04/13/2018 [facility] mmol/L 6:19 AM [facility] [employer] LAB Bicarbonate, S 25 22 - 29 04/13/2018 [facility] mmol/L 6:19 AM [facility] [employer] [facility] Anion Gap 11 7 - 15 04/13/2018 [facility] 6:19 AM [facility] [employer] [facility] BUN (Blood Urea 63 (H) 8 - 24 04/13/2018 [facility] Nitrogen), S mg/dL 6:19 AM [facility] [employer] LAB Creatinine 1.14 0.74 - 04/13/2018 [facility] 1.35 mg/dL 6:19 AM [facility] [employer] LAB eGFR-Non 70 >=60 04/13/2018 [facility] Black/ mL/min/BSA 6:19 AM [facility] [employer] LAB Comment: ----ADDITIONAL INFORMATION---- Estimated GFR calculated using the 2009 CKD_EPI creatinine equation. eGFR-Black/ 81 >=60 mL/min/BSA 2017 6:19 AM [facility] [employer] [facility] Comment: ----ADDITIONAL INFORMATION---- Estimated GFR calculated using the 2009 CKD_EPI creatinine equation. Calcium, Total, S 8.3 (L) 8.6 - 10.0 04/13/2018 6:19 AM [facility] mg/dL [facility] [employer] [facility] Glucose, S 176 (H) 70 - 140 mg/dL 04/13/2018 6:[address] [facility] [employer] LAB Protein, Total, S 4.9 (L) 6.3 - 7.9 g/dL 04/13/2018 6:19 A M [facility] Albumin, S 3.3 (L) 3.5 - 5.0 g/dL 04/13/2018 6:19 AM [facility] Aspartate 12 8 - 48 U/L 04/13/2018 6:19 AM [facility] ([facility]), S [facility] Alkaline Phosphatase, S 41 (L) 45 - 115 U/L 04/13/2018 6: 19 AM [facility] Alanine Aminotransferase 13 7 - 55 U/L 04/13/2018 6:1 9 AM [facility] (ALT), S [facility] LAB Bilirubin, Total, S 0.7 <=1.2 mg/dL 04/13/2018 6:19 AM [facility] Specimen Anatomical Collection Method Collection Time Receive d Time (Source) Location / / Volume Laterality Blood (Blood, 04/13/2018 5:24 AM 04/13/20 18 5:34 Venous) CDT AM CDT Jess Hernandez M.D. LAB BLOOD ADD-ON Performing Organization Address City/State/ZIP Code Phon e Number [place] [id number] [place] [address] [place] [facility] (ABNORMAL) CBC without Differential (04/13/2018 5:23 AM CDT) [facility] Method Time Signature Hemoglobin 7.7 (L) 13.2 - 04/13/2018 [facility] 16.6 g/dL 5:37 AM [facility] Hematocrit 23.3 (L) 38.3 - 04/13/2018 [facility] 48.6 % 5:37 AM [facility] Erythrocytes 2.69 (L) 4.35 - 04/13/2018 [facility] 5.65 5:37 AM [facility] x10(12)/L [facility] MCV 86.6 78.2 - 04/13/2018 [facility] 97.9 fL 5:37 AM [facility] RBC Distrib Width 18.6 (H) 11.8 - 04/13/2018 [facility] 14.5 % 5:37 AM CDT [facility] [place] [facility] Platelet Count 147 135 - 317 04/13/2018 [facility] x10(9)/L 5:37 AM CDT [facility] [place] [facility] Leukocytes 9.4 3.4 - 9.6 04/13/2018 [facility] x10(9)/L 5:37 AM CDT [facility] [place] [facility] Specimen Anatomical Collection Method Collection Time Receive d Time (Source) Location / / Volume Laterality Blood (Blood, 04/13/2018 5:23 AM 04/13/20 18 5:34 Venous) CDT AM CDT Jess Hernandez M.D. LAB BLOOD ADD-ON Performing Organization Address City/State/ZIP Code Phon e Number [facility] [address] [place] [address] [facility] [facility] Transfuse Red Blood Cells (04/13/2018 5:02 AM CDT) Kelvin Sadler APRNN.Tigist., M.S.N. BLOOD TRANSFUSION O RDERABLES Transfuse Red Blood Cells : , 2 Units (04/13/2018 5:02 AM CDT) Kelvin Sadler APRNN.Tigist., M.S.N. BLOOD TRANSFUSION O RDERABLES Transfuse Red Blood Cells (04/13/2018 3:18 AM CDT) Kelvin Sadler APRNNDonna., M.S.N. BLOOD TRANSFUSION O RDERABLES (ABNORMAL) Hemoglobin (04/13/2018 12:33 AM CDT) P athologist Signature Hemoglobin 5.6 (CL) 13.2 - 16.6 04/13/2018 [facility] g/dL 12:44 AM CDT [facility] [place] [facility] Specimen Anatomical Collection Method Collection Time Receive d Time (Source) Location / / Volume Laterality Blood (Blood, 04/13/2018 12:33 04/13/2018 Venous) AM CDT 12:38 AM CDT Luis Varghese APRN, C.N.P. LAB BLOOD ADD-ON Performing Organization Address City/State/ZIP Code Phon e Number [facility] [address] [place] [address] [place] [facility] Transfuse Red Blood Cells (04/12/2018 9:35 PM CDT) Luis Varghese APRN, C.N.P. BLOOD TRANSFUSION ORDER [place] Transfuse Red Blood Cells : , 1 Units (04/12/2018 9:35 PM CDT) Luis Varghese APRN, C.N.P. BLOOD TRANSFUSION ORDER [place] Type and Screen (with reflex Antibody ID) (04/12/2018 5:52 PM CDT) Patholo gist Method Time Signature ABO Group A 04/12/2018 [facility] 6:15 PM CDT [facility] [place] [facility] Rh Type POS 04/12/2018 [facility] 6:15 PM CDT [facility] [place] [facility] Antibody Screen NEG 04/12/2018 [facility] 6:28 PM CDT [facility] [employer] LAB Type & Screen 04/15/2018 04/12/2018 [facility] Expiration 23:59 6:28 PM CDT [facility] [place] [facility] ELXM Eligible Y 04/12/2018 [facility] 6:28 PM CDT [facility] [place] [facility] Specimen Anatomical Collection Method Collection Time Receive d Time (Source) Location / / Volume Laterality Blood (Blood, 04/12/2018 5:52 PM 04/12/20 18 5:56 Venous) CDT PM CDT Omar Stone M.D. LAB BLOOD BANK TEST ORDERABL ES Performing Organization Address City/State/ZIP Code Phon e Number [facility] [address] [facility] [place] [address] [place] [facility] (ABNORMAL) Hemoglobin (04/12/2018 4:50 PM CDT) P athologist Signature Hemoglobin 5.3 (CL) 13.2 - 16.6 04/12/2018 [facility] g/dL 5:02 PM CDT [facility] [place] Specimen Anatomical Collection Method Collection Time Receive d Time (Source) Location / / Volume Laterality Blood (Blood, 04/12/2018 4:50 PM 04/12/20 18 4:54 Venous) CDT PM CDT Meme Narvaez APRNP. LAB BLOOD ADD-ON Performing Organization Address City/State/ZIP Code Phon e Number [facility] [address] [place] [address] LAB documented in this encounter Visit Diagnoses Diagnosis Hemorrhage Gastrointestinal - Primary Gastric Bypass Status Post Gastric Bypass Status Post documented in this [...] Given 04/13/2018 11:45 AM CDT 300 mg benzocaine 20 % mouth spray (HURRICAINE/ TOPEX) Given 04/13/2018 7:43 AM 1 spray Code/trauma/sedation medication, Starting on Thu04/13/18 at 0743 fentaNYL injection (SUBLIMAZE) Given 04/13/2018 7:42 AM CDT 100 mcg intravenous, Code/trauma/sedation medication, Starting on Thu04/13/18 at 0742 iohexol (OMNIPAQUE) 350 mg iodine/mL Given 04/13/2018 9:04 PM CD T Left Arm solution - ADS Override Pull Starting on Thu04/13/18 at 1944, For 1 dose, Created by prettyinet override midazolam (PF) injection (VERSED) Given 04/13/2018 7:42 AM CDT 2 mg Code/trauma/sedation medication, Starting on Thu04/13/18 at 0742 NaCl 0.9% infusion New Bag 04/14/2018 7:22 AM CDT 100 mL/hr 100 mL/hr 100 mL/hr, intravenous, Continuous, Starting on Thu04/12/18 at 1630 New Bag 04/13/2018 9:29 PM CDT 100 mL/hr 100 mL/hr New Bag 04/13/2018 1:16 PM CDT 100 mL/hr 100 mL/hr naloxone injection 0.2 mg (NARCAN) 0.2 mg, [...] Given 04/14/2018 4:58 PM CDT 40 mg pantoprazole injection 40 mg (PROTONIX) Given 04/13/2018 9:02 AM CDT 40 mg 40 mg, intravenous, 2 times daily, First dose on Thu04/12/18 at 2100, First dose now if not previously given Administer IV push over 2 minutes. Add 10 mL NS to 40 mg vial for a final concentration of 4 mg/mL. Given 04/12/2018 9:50 PM CDT 40 mg sodium chloride 0.9 % flush 55 mL Given 04/13/2018 9:05 PM CDT 55 mL 55 mL, intravenous, Once in imaging, line care, Starting on Thu04/13/18 at 1939, For 1 dose sodium chloride injection 10 mL Given 04/13/2018 [...] 04/15/2018 allopurinol tablet 300 mg (ZYLOPRIM) 0734 (NOV Hold - Provider: Transfer Provider, Automatic - Reason: Patient not available)0815 (NOV Unhold - Provider: Transfer Provider, Automatic)1145 (Given - Provider: Michell Mujica R.N.) 0733 (Given - Provider: Surendra Patino R.N.)0900 (Canceled Entry - Provider: Surendra Patino R.N.) 0852 (Given - Provider: Surendra rivas R.NPili) 300 mg, oral, Daily, First dose on [...] Patino R.N.)2100 (Not Given - Provider: Diamond Zuniga R.N. - Reason: Patient/family refused) 0900 (Not Given - Provider: Surendra herman RPiliNPili - Reason: Patient/family refused) 20 mg, oral, 2 times daily, First dose on Thu04/12/18 a t 2100 2100 (Not Given - Provider: Mandy Tao R.N. - Reason: Patient/family refused) pantoprazole DR tablet 40 mg (PROTONIX) 1554 (Given - Provider: Anika Cunningham RPiliN.) 0733 (Given - Provider: Surendra rivas R.NPili)1658 (Given - Provider: Surendra Patino R.N.) 0616 (Given - Provider: Diamond Zuniga R.N.)1642 (Given - Provider: Surendra Patino R.N.) [...] RAugustine)1316 (New Bag - Provider: Lesli Sotomayor RAugustine)2129 (New Bag - Provider: Mandy Tao RAugustine) 0722 (New Bag - Provider: Surendra lake RPiliNPili)0900 (Stopped - Provider: Surendra Patino R.N.) 100 [...] refused) 1658 (Given - Provider: Surendra Patino R.N.) 1,000 mg, oral, 3 times daily PRN, [...] mL (COMPLETED) 2104 (Gi cora - Provider: Snow Dunlap, R.T.(R)(CT), R.T.(R)) 55 mL, intravenous, Once in imaging, sergei e care, Starting Thu04/13/18 at 1939, For 1 dose sodium chloride injection 10 mL 2103 (Given - Provider : Snow Dunlap R.T.(R)(CT), R.T.(R)) 10 mL, intravenous, As needed, line care, Starting Thu04/13/18 at 1939 traMADol tablet 50 mg (ULTRAM) 0734 (NOV Hold - Provid er: Transfer Provider, Automatic - Reason: Patient not available)0815 (MAR Unhold - Provider: Transfer Provider, Automatic) 0908 (Given - Provider: Surendra rivas R.N.)1658 (Given - Provider: Surendra Patino R.N.) 50 mg, oral, Every 6 hours PRN, moderate pain or score 4-6 of 10, Starting 04/12/18 at 1636, Drug Monitoring Program: Pharmacist to adjust medication order based on comorbities and indication. No Frequency Medication Order 04/13/2018 04/14/2018 04/15/2018 iohexol (OMNIPAQUE) 350 mg iodine/mL solution - ADS Ov erride Pull (COMPLETED) 6897 (Given - Provider: Myriam Garcia(R)(CT), RPiliTPili(R)) Starting 04/13/18 at 1944, For 1 dose, Created by cabinet over ride documented in this encounter Additional Health Concerns Assessment Noted Time PHQ-9 Depression Total Score: 18 02/14/2013 9:53 AM CD T documented as of this encounter Care Teams Equipment Coordinator Relationship Specialty Start Date End Date Cintia Cobb M.D. PCP - General 02/19/17 02/20/[address] [place] [phone] documented as of this encounter
--- OUTSIDE RECORDS SUMMARY | 2022-07-29 10:49 | XMS_ITS | Encounter Summary ---
:1960 [facility] Address [address] [place] [address] Care Team Providers Name Role Phone Cintia Cobb M.D. Primary Care Provider [phone] Reason for Visit Reason Onset Date Comments RX PRIOR AUTHORIZATION 03/11/2018 DENIAL OF LYRICA Encounter Details Date Type Department Care Team Description 03/11/2018 Clinical [facility] Pari Song RX PRIOR Communication [facility] Cintia Copeland AUTHORIZATION [address] Feliz M.D. (DENIAL OF LYRICA ) [place] [id number] [place] [phone] [facility] [phone] [place] [address] Social History Tobacco Use Types Packs/Day Years Used Date Smoking Tobacco: Never Smokeless Tobacco: Never Alcohol Use Standard Drinks/Week Comments No 0 (1 standard drink = 0.6 oz pure alcoho l) Sex Assigned at Date Recorded Not on file documented as of this encounter Miscellaneous Notes Telephone Encounter - Cintia Cobb M.D. - 03/11/2018 2:16 PM CDT Felicia sent in. Telephone Encounter - Caroline Monique - 03/11/2018 2:02 PM CDT Images from the original note were not included. The patient???s health insurer has denied prior authorization for LYRICA. MUST HAVE TRIED AND FAILEDON ALTERNATIVES. 1. DESIPRAMINE TABLETS 2. DULOXETINE 20MG, 30MG 60 MG CAPSULES 3. IMIPRAMINE TABLETS 4. NORTRIPTYLINE CAPSULES 5. VENLAFAXINE IR TABLETS AND ER CAPSULES (SEE BELOW) Your options: 1. Appeal the decision by reaching out to the patient???s insurer directly. PHONE NUMBER: (SEE BELOW) 2. Consider changing the patient???s medication therapy. 3. If not appealing or prescribing a different Rx, the prescription has already been released to thepharmacy so the patient has the option to pay full khanna for the item if desired. Thank you documented in this encounter Plan of Treatment Not on filedocumented as of this encounter Visit Diagnoses Not on filedocumented in this encounter Additional Health Concerns Assessment Noted Time PHQ-9 Depression Total Score: 18 02/14/2013 9:53 AM CD T documented as of this encounter Care Teams Conduit Mechanic Relationship Specialty Start Date End Date Cintia Cobb M.D. PCP - General 02/19/17 02/20/[address] [phone] documented as of this encounter
--- OUTSIDE RECORDS SUMMARY | 2022-07-29 10:49 | XMS_ITS | Encounter Summary ---
:1960 Author Organization [facility] Address [address] [place] [address] Care Team Providers Name Role Phone Cintia Cobb M.D. Primary Care Provider [phone] Reason for Visit Reason Comments Back Pain C/o lower back pain that sta rted 03/18/18. Located lower left back, radiating to the knee. Encounter Details Date Type Department Care Team Description 03/24/2018 Emergency [facility], Lavern Lindsay , Pain Low Back (Primary Department M.D. Dx) [id number] [place] [phone] [place], [place] [phone] (Wo rk) Social History Tobacco Use Types Packs/Day Years Used Date Smoking Tobacco: Never Smokeless Tobacco: Never Alcohol Use Standard Drinks/Week Comments No 0 (1 standard drink = 0.6 oz pure alcoho l) Sex Assigned at Date Recorded Not on file documented as of this encounter Last Filed Vital Signs Vital Sign Reading Time Taken Comments Blood Pressure 164/101 03/24/2018 3:46 AM CDT Pulse 78 03/24/2018 3:46 AM CDT Temperature 36.7 ??C (98.1 ??F) 03/24/2018 3:46 AM CDT Respiratory Rate 18 03/24/2018 3:46 AM CDT Oxygen Saturation 98% 03/24/2018 3:46 AM CDT Inhaled Oxygen Concentration - - Weight 81.6 kg (180 lb) 03/24/2018 3:47 AM CDT Height - - Body Mass Index 24.41 02/14/2018 6:38 PM CDT documented in this encounter Discharge Instructions Discharge InstructionsLavern Ba M.D. - 03/24/2018 4:02 AM CDT Start Naproxen today, and take twice a day. No bed rest, and start at home physical therapy with below exercises. May add Tylenol, massage, and local heat packs for pain. AttachmentsThe following attachments cannot be sent through Care Everywhere.Back Exercises [id number] (Zambian)Acute Pain Adult (Zambian)documented in this encounter Medications at Time of Discharge Medication Sig Dispensed Refills Start Date End Date PEDIATRIC MULTIVITAMIN Take 4 tablets by 0 2015 NO.76 ([place] mouth daily. COMPLETE ORAL) naproxen (NAPROSYN) 500 Take 1 tablet (500 20 tablet 0 03/0704/03/2018 mg tablet mg total) by mouth 2 (two) times a day with meals for 10 days. allopurinol Take 1 tablet (300 90 tablet 3 08/04/201706/01 (for_ZYLOPRIM) 300 mg mg total) by mouth tablet daily. cyanocobalamin, vitamin Inject 1,000 mcg 3 kit 3 201606/01/2018 B-12, 1,000 mcg/mL kit under the skin every 30 (thirty) days. DULoxetine (CYMBALTA) 20 Take 1 capsule (20 180 capsule 3 04/06/[address] capsule mg total) by mouth 2 (two) times a day. furosemide (LASIX) 40 mg Take 1 tablet (40 90 tablet 3 07/0906/01/2018 tablet mg total) by mouth daily. documented as of this encounter ED Notes Lavern Ba M.D. - 03/24/2018 4:03 AM CDT Images from the original note were not included. SUBJECTIVE CHIEF COMPLAINT/REASON FOR VISIT Back Pain (C/o lower back pain that started 03/18/18. Located lower left back, radiating to the knee.) HISTORY OF PRESENT ILLNESS Ed Cuauhtemoc Luna is a 57 y.o. male with significant PMHx of DM 2 with peripheral neuropathy, previous right-sided herniated disc status post chondrectomy in 1988, and history of gastric bypass who presents via private vehicle for evaluation of back pain. Onset initially while getting out of his truck, but acutely exacerbated on Thursday while lifting a heavy object. Pain is localized to left buttock with radiation down his anterior and posteriorleg, 1st just into his knee, now all the way down into his foot. Characterized as a severe sharp ache which is constant but fluctuating. No other associated symptoms. Aggravated by standing up. Trialed nothing prior to arrival for alleviation as Tylenol and ibuprofen has never worked for him previously. Denies direct trauma, numbness, tingling, motor weakness, sensory deficits, loss of sensation in buttocks/genitalia, inability to ambulate, recent back surgery, spinal injections, anticoagulation, urinary retention, loss of bladder or bowel control, fevers, chills, or systemic symptoms. PAST MEDICAL/SURGICAL HISTORY: Reviewed in EMR. Pertinent past medical history noted per HPI. MEDICATIONS/ALLERGIES: Reviewed in EMR and as per HPI, otherwise non-contributory to evaluation today. FAMILY HISTORY: Reviewed in EMR. Non-contributory to evaluation today. SOCIAL HISTORY: Per nursing notes, otherwise non-contributory to evaluation today. History provided by: Patient and significant other freelance interpreter/translator used: No REVIEW OF SYSTEMS All other systems reviewed and are negative. OBJECTIVE Initial Vitals Temperature Pulse Rate Heart Rate Resp Rate Blood Pressure SpO2 03/24/18 0346 03/24/18 0346 -- 03/24/18 0346 03/24/18 0346 03/24/18 0346 36.7 ??C 78 18 (!) 164/101 98 % Pain Score 03/24/18 0406 10 - Worst possible pain PHYSICAL EXAMINATION Constitutional: He appears well-developed and well-nourished. Standing in room holding left buttock. HENT: Head: Atraumatic. Eyes: Conjunctivae are normal. Neck: Neck supple. Cardiovascular: Normal rate, regular rhythm and normal heart sounds. Pulses are palpable. Capillary refill: takes less than 3 seconds, Pulmonary/Chest: Effort normal and breath sounds normal. There is normal air entry. No respiratory distress. He exhibits no retraction. Abdominal: Soft. He exhibits no distension. There is no tenderness. There is no rebound and no guarding. No CVA tenderness bilaterally. Musculoskeletal: Left knee: Normal. He exhibits normal range of motion, no swelling, no effusion and normal patellarmobility. No tenderness found. Left ankle: Normal. Cervical back: He exhibits no bony tenderness. Thoracic back: He exhibits no bony tenderness. Lumbar back: He exhibits no bony tenderness. Back: Reproducible pain of left buttock. Lymphadenopathy: He has no cervical adenopathy. Neurological: He is alert and oriented to person, place, and time. Skin: Skin is warm and dry. No rash noted. No cyanosis. Healed vertical scar of midline lumbar spine. Psychiatric: His speech pattern is normal. Thought content normal. His affect is angry. He is agitated. He is inattentive. Nursing note and vitals reviewed. ASSESSMENT/PLAN Impression and Plan Laz Cuauhtemoc Luna is a 57 y.o. male with significant PMHx of DM 2 with peripheral neuropathy, previous right-sided herniated disc status post chondrectomy in 1988, and history of gastric bypass who presents well appearing although very agitated and demanding, afebrile, hypertensive, and other hemodynamicallynormal with 5 days of atraumatic left lower back pain with radiation down his entire left leg. No history or physical findings concerning for epidural abscess, cord/cauda equina syndrome, cord compression, abdominal aortic aneurysm, osteomyelitis, or local hematoma. History and exam concerning for sciatica vs radiculopathy vs spinal stenosis. Abdominal and spinal exam unremarkable, and CT imaging notindicated given location of pain. No urinary symptoms and clinically not consistent with pyelonephritis or nephrolithiasis. Significant time spent providing anticipatory guidance as well as setting expectations. Discussed literature of back pain, with NSAIDs and physical therapy, conservative symptomatic management, rather than narcotics used in management. Provided symptomatic treatment with IM Toradol. Patient has PCP appointment in 9 hours, and can discuss further management and possible imaging / MRI at that time. The patient / family expresses understanding, agrees with this plan, and has had all questions answered.. Reviewed and summarized previous medical records including: Documentation from previous visits. Final Diagnoses: as of Mar 24 421 Pain Low Back Lavern Ba M.D. 03/24/18 0421 Bobby uMnoz R.N. - 03/24/2018 3:47 AM CDT C/o lower back pain that started 03/18/18. Located lower left back, radiating to the knee. Pt was unwilling to get on a scale to be weighed and at that point became very rude and confrontational. Bobby Munoz R.N. 03/24/18 0347 documented in this encounter Plan of Treatment Not on filedocumented as of this encounter Visit Diagnoses Diagnosis Pain Low Back Unspecified - Primary documented in this encounter Administered Medications Inactive Administered Medications - up to 3 most recent administrations Medication Order MAR Action Action Date Dose Rate Site ketorolac intramuscular Given 03/24/2018 4:06 AM 60 mg Right Ventrogluteal injection 60 mg (TORADOL) CDT 60 mg, intramuscular, Once, On Thu03/24/18 at 0402, For 1 dose, Adult IV push rate: Over 15 seconds. Peds IV push rate: Over 1 minute. 60 mg dose only for IM, not recommended for IV., Drug Monitoring Program: Pharmacist to adjust medication order based on comorbities and indication. documented in this encounter Active and Recently Administered Medications Times are shown in CDT. Scheduled Medication Order 03/22/2018 03/23/2018 03/24/2018 ketorolac intramuscular injection 60 mg (TORADOL) (COMPLETED) 0406 (Given - Provider: Bobby Munoz R.N.) 60 mg, intramuscular, Once, Thu03/24/18 at 0402, For 1 dose, Adult IV push rate: Over 15 seconds. Peds IV push rate: Over 1 minute. 60 mg dose only for IM, not recommended for IV., Drug Monitoring Progr am: Pharmacist to adjust medication order based on comorbiti es and indication. documented in this encounter Additional Health Concerns Assessment Noted Time PHQ-9 Depression Total Score: 02/14/2013 9:53 AM CD T documented as of this encounter Care Teams Instrumentation Manager Relationship Specialty Start Date End Date Cintia Cobb M.D. PCP - General 02/19/17 02/20/[id number] [place] [phone] documented as of this encounter
--- OUTSIDE RECORDS SUMMARY | 2022-07-29 10:49 | XMS_ITS | Encounter Summary ---
:1960 Author Organization [facility] Address [address] [place] [address] Care Team Providers Name Role Phone Cintia Cobb M.D. Primary Care Provider [phone] Encounter Details Date Type Department Care Team Description 04/13/2018 Ancillary Procedure Department of Gastroenterology Social History Tobacco Use Types Packs/Day Years Used Date Smoking Tobacco: Never Smokeless Tobacco: Never Alcohol Use Standard Drinks/Week Comments No 0 (1 standard drink = 0.6 oz pure alcoho l) Sex Assigned at Date Recorded Not on file documented as of this encounter Plan of Treatment Not on filedocumented as of this encounter Procedures Procedure Name Priority Date/Time Associated Comments Diagnosis GASTROENTEROLOGY IMAGE Routine 04/13/2018 7:40 Re sults for this EXAM AM CDT procedure are i n the results section. documented in this encounter Results GASTROENTEROLOGY IMAGE EXAM (04/13/2018 7:40 AM CDT) Specimen (Source) Anatomical Collection Method Collection Time Re ceived Time Location / / Volume Laterality 04/13/2018 7:37 AM CDT Narrative [facility] - 04/13/2018 8:18 AM CDT This order has been created and [...] documented as of this encounter Care Teams Microbiology Quality Control Technician Relationship Specialty Start Date End Date Cintia Cobb M.D. PCP - General 02/19/17 02/20/[address] [phone] documented as of this encounter
--- OUTSIDE RECORDS SUMMARY | 2022-07-29 10:49 | XMS_ITS | Encounter Summary ---
:1960 Author Organization [facility] Address [address] [place] [address] Care Team Providers Name Role Phone Cintia Cobb M.D. Primary Care Provider [phone] Reason for Visit Reason Comments Black or Bloody Stool since wed black tarry stools Encounter Details Date Type Department Care Team Description 04/12/2018 Emergency Cassandra Eugene Buncha ge Gastrointestinal (Primary Dx); Emergency Department Reed ALLEN M.D. Anemia; [address] [facility] [address] [address] [facility] [address]; [place], [place] [address] Diabetes Mellitus Type 2 Hyperglycemia ( HCC); [address] [place], [place] Hypoalbuminemia [phone] [id number] (Wo rk) Social History Tobacco Use Types Packs/Day Years Used Date Smoking Tobacco: Never Smokeless Tobacco: Never Alcohol Use Standard Drinks/Week Comments No 0 (1 standard drink = 0.6 oz pure alcoho l) Sex Assigned at Date Recorded Not on file documented as of this encounter Last Filed Vital Signs Vital Sign Reading Time Taken Comments Blood Pressure 119/82 04/12/2018 2:50 PM CDT Pulse 76 04/12/2018 2:15 PM CDT Temperature 37.3 ??C (99.1 ??F) 04/12/2018 2:50 PM CDT Respiratory Rate 18 04/12/2018 2:50 PM CDT Oxygen Saturation 95% 04/12/2018 2:50 PM CDT Inhaled Oxygen Concentration - - Weight 81.6 kg (179 lb 14.3 oz) 04/12/2018 11:05 AM CDT Height - - Body Mass Index 24.4 02/14/2018 6:38 PM CDT documented in this encounter Medications at Time of Discharge Medication Sig Dispensed Refills Start Date End Date PEDIATRIC MULTIVITAMIN Take 4 tablets by 0 2015 NO.76 ([place] mouth daily. COMPLETE ORAL) allopurinol Take 1 tablet (300 90 tablet 3 08/04/201706/01 (for_ZYLOPRIM) 300 mg mg total) by mouth tablet daily. cyanocobalamin, vitamin Inject 1,000 mcg 3 kit 3 201606/01/2018 B-12, 1,000 mcg/mL kit under the skin every 30 (thirty) days. DULoxetine (CYMBALTA) Take 2 capsules (40 180 capsule 3 03/0904/21/[address] capsule mg total) by mouth 2 (two) times a day. furosemide (LASIX) 40 Take 1 tablet (40 mg 90 tablet 3 07/0906/01/2018 mg tablet total) by mouth daily. omeprazole (PriLOSEC) Take 1 capsule (20 30 capsule 2 201704/21/2018 20 mg capsule mg total) by mouth 2 (two) times a day before breakfast and dinner. Take BID for 1 month then take daily indefinitely. predniSONE (DELTASONE) Take 2 tablets (40 10 tablet 0 04/0604/15/2018 20 mg tablet mg total) by mouth daily for 5 days. documented as of this encounter ED Notes Eugene Bunch III, M.D. - 04/12/2018 2:22 PM CDT SUBJECTIVE CHIEF COMPLAINT/REASON FOR VISIT Black or Bloody Stool (since thu black tarry stools) HISTORY OF PRESENT ILLNESS History provided by: Significant other Anemia Presents for initial visit. The condition has lasted for 10 days. Symptoms include confusion, light-headedness, malaise/fatigue and pallor. There has been no abdominal pain, anorexia, bruising/bleedingeasily, fever, leg swelling, palpitations, paresthesias, pica or weight loss. Signs of blood loss that are present include melena. Past treatments include nothing. There is no past history of bone marrow exam, colonoscopy, EGD or FOBT. REVIEW OF SYSTEMS Constitutional: Positive for malaise/fatigue. Negative for chills, fever and weight loss. HENT: Negative for sore throat. Eyes: Negative for pain and visual disturbance. Respiratory: Negative for shortness of breath. Cardiovascular: Negative for chest pain, palpitations and leg swelling. Gastrointestinal: Positive for melena. Negative for abdominal pain, anorexia, constipation, diarrhea, nausea and vomiting. Endocrine: Negative for cold intolerance, heat intolerance, polydipsia, polyphagia and polyuria. Genitourinary: Negative for dysuria and frequency. Musculoskeletal: Negative for joint swelling and extremity pain. Skin: Positive for pallor. Allergic/Immunologic: Negative for environmental allergies and food allergies. Neurological: Positive for light-headedness. Negative for weakness, numbness, headaches and paresthesias. Hematological: Does not bruise/bleed easily. Psychiatric/Behavioral: Positive for confusion. Negative for agitation and depression. OBJECTIVE Initial Vitals Temperature Pulse Rate Heart Rate Resp Rate Blood Pressure SpO2 04/12/18 1104 04/12/18 1104 04/12/18 1115 04/12/18 1104 04/12/18 1104 04/12/18 1104 37.5 ??C (!) 112 88 18 129/59 99 % Pain Score -- PHYSICAL EXAMINATION Constitutional: He is uncooperative. HENT: Head: Normocephalic and atraumatic. Mouth/Throat: Mucous membranes are moist. Eyes: Conjunctivae and EOM are normal. Pupils are equal, round, and reactive to light. Neck: Normal range of motion. Cardiovascular: Regular rhythm, S1 normal, S2 normal and normal heart sounds. Capillary refill: takes 3-5 seconds, Pulmonary/Chest: Effort normal and breath sounds normal. There is normal air entry. Abdominal: Soft. Bowel sounds are normal. Musculoskeletal: Normal range of motion. Neurological: He is alert. Skin: Skin is cool and dry. There is pallor. Psychiatric: His affect is blunt. His speech is delayed. He is agitated and billigerent. Thought content is paranoid. Cognition and memory are impaired. He expresses impulsivity. Nursing note and vitals reviewed. Differential diagnoses includes but is not limited to: Crohn's Disease, gastric ulcer, duodenal ulcer, intussusception lower GI bleeding, bleeding from hemorrhoids, anal fissure, angiodysplasia, inflammatory bowel disease, dysentery, ulcerative colitis, Meckel's diverticulum, Henoch-Monica??lein purpura, and colorectal polyps. Life threatening differential diagnoses include hypovolemia from the bleedingand cancer. ASSESSMENT/PLAN Impression and Plan The patient has a bleeding source that is, as yet, unidentified. We have noted that he does not appear to be making appropriate decisions and this my be due to his current condition. We have initiated blood transfusions at the request of his . We will be transferring him to [place] with the intention of having him scoped later today to determine the source of his bleeding. Further care will depend on clinical course. Reviewed and summarized previous medical records including: Lab results, EKG images/reports, Radiology images/report and Documentation from previous visits. I personally reviewed the lab result(s) and my interpretation is: Abnormal Final Diagnoses: as of Apr 12 1618 Hemorrhage Gastrointestinal Anemia Melena Diabetes Mellitus Type 2 Hyperglycemia (HCC) Hypoalbuminemia Care Handoff Row Name 04/12/18 1417 Care Handoff Type of Handoff Report to hospital or facility patient is being transfered to Providers Name Dr. Jess Hernandez External Hospital or Facilty [facility] Eugene Bunch III, M.D. 04/12/18 1621 Lesli Sotomayor R.N. - 04/12/2018 11:17 AM CDT Pt comes in by ambulance after he states called due to syncope episodes x2. Pt states since thuhe has had black tarry stools. On arrival he has [address] to left wrist/arm and 500cc normal saline hung. He received 8mg of zofran from ambulance with no emesis. C/O of headache. Lesli Sotomayor R.N. 04/12/18 1123 documented in this encounter Plan of Treatment Pending Results Name Type Priority Associated Diagnoses Date/Ti me Prepare Red Blood Blood Bank STAT 04/12/2018 11:55 AM CDT Cells, 1 Units documented as of this encounter Procedures Procedure Name Priority Date/Time Associated Comments Diagnosis TRANSFUSE RED BLOOD STAT 04/12/2018 1:09 PM CELLS CDT PREPARE EMERGENCY BLOOD STAT 04/12/2018 11:55 Results for this UNCROSSMATCHED AM CDT procedure are in the results section. PREPARE RED BLOOD CELLS STAT 04/12/2018 11:55 Results for this AM CDT procedure are i n the results section. PREPARE RED BLOOD CELLS STAT 04/12/2018 11:55 AM CDT TYPE AND SCREEN STAT 04/12/2018 11:55 Results for this AM CDT procedure are i n the results section. TRANSFUSE EMERGENCY STAT 04/12/2018 11:54 RELEASED AM CDT (UNCROSSMATCHED) RED BLOOD CELLS PROTHROMBIN TIME (PT), STAT 04/12/2018 11:23 R esults for this P AM CDT procedure are i n the results section. CBC WITH DIFFERENTIAL, STAT 04/12/2018 11:23 R esults for this B AM CDT procedure are i n the results section. LACTATE, B/P STAT 04/12/2018 11:23 Results for this AM CDT procedure are i n the results section. COMPREHENSIVE METABOLIC STAT 04/12/2018 11:23 Results for this PANEL, S/P AM CDT procedure are i n the results section. documented in this encounter Results Transfuse Red Blood Cells (04/12/2018 2:55 PM CDT) Eugene Bunch III, M.D. BLOOD TRANSFUSION ORDER DESEAN Transfuse Emergency Released Red Blood Cells (Uncrossmatched) (04/12/2018 12:23 PM CDT) Eugene Bunch III, M.D. BLOOD TRANSFUSION ORDER DESEAN Prepare Red Blood Cells, 2 Units (04/12/2018 11:55 AM CDT) [facility] Method Time Signature Red Blood [id number] 04/13/2018 [facility] Cells Released 5:29 AM CDT [facility] Product Code ^-1 LR Red 04/13/2018 [facility] Blood Cells /500 5:29 AM CDT [facility] Donation [id number] 04/13/2018 [facility] Number 5:29 AM CDT [facility] [place] Barcoded [id number] 04/13/2018 [facility] Product Code 5:[address] [facility] Unit Status Not Available 04/13/2018 [facility] 5:[address] [facility] Unit [id number] 04/13/2018 [facility] Expiration 5:29 AM T [facility] Unit ABO/Rh 6200 04/13/2018 [facility] 5:29 AM T [facility] Unit ABO/Rh A POSITIVE [facility] Specimen Anatomical Collection Method Collection Time Receive d Time (Source) Location / / Volume Laterality WB EDTA 04/12/2018 11:55 04/12/2018 AM CDT 12:03 PM CDT Eugene Bunch III, M.D. BLOOD BANK PRODUCT ORDE CATARINO Performing Organization Address [facility] Phon e Number [address] [address] [place] Type and screen (04/12/2018 11:55 AM CDT) [facility] Method Time Signature ABO Group A 04/12/2018 [facility] 12:30 PM CDT [facility] Rh Type POS 04/12/2018 [facility] 12:31 PM T [facility] Antibody Screen NEG 04/12/2018 [facility] 12:43 PM T [facility] Type & Screen 04/15/2018 04/12/2018 [facility] Expiration 23:59 12:43 PM T [facility] ELXM Eligible N 04/12/2018 [facility] 12:43 PM T [facility] Specimen Anatomical Collection Method Collection Time Receive d Time (Source) Location / / Volume Laterality Blood 04/12/2018 11:55 04/12/2018 AM CDT 12:03 PM CDT Eugene Bunch III, M.D. LAB BLOOD BANK TEST ORD ERAPRETTY Performing Organization Address [facility] Phon e Number [address] [address] [facility] Emergency blood uncrossmatched (04/12/2018 11:55 AM CDT) Patholo gist Method Time Signature Emergency EMBLD 04/12/2018 [facility] Blood Confirmed 12:39 PM CDT [facility] Specimen Anatomical Collection Method Collection Time Receive d Time (Source) Location / / Volume Laterality Blood (Blood, 04/12/2018 11:55 04/12/2018 Venous) AM CDT 11:57 AM CDT Eugene Bunch III, M.D. LAB BLOOD BANK TEST ORD ERABLES Performing Organization Address [facility] Phon e Number [place] [phone] [facility] PT (Prothrombin Time) with INR (04/12/2018 11:23 AM CDT) athologist Signature Prothrombin 9.7 8.8 - 11.9 04/12/2018 [facility] Time, P sec 12:31 PM CDT [facility] INR 1.0 0.9 - 1.2 04/12/2018 [facility] 12:31 PM CDT [facility] Comment: Standard intensity warfarin therapeutic range: 2.0 to 3.0 High intensity warfarin therapeutic rang e: 2.5 to 3.5 Specimen Anatomical Collection Method Collection Time Receive d Time (Source) Location / / Volume Laterality Blood (Blood, 04/12/2018 11:23 04/12/2018 Venous) AM CDT 11:25 AM CDT Eugene Bunch III, M.D. LAB BLOOD ADD-ON Performing Organization Address [facility] Phon e Number [address] [address] [facility] (ABNORMAL) Lactate (04/12/2018 11:23 AM CDT) P athologist Signature Lactate, P 3.1 (H) 0.5 - 2.2 04/12/2018 [facility] mmol/L 11:39 AM CDT [facility] Specimen Anatomical Collection Method Collection Time Receive d Time (Source) Location / / Volume Laterality Blood (Blood, 04/12/2018 11:23 04/12/2018 Venous) AM CDT 11:25 AM CDT Eugene Bunch III, M.D. LAB BLOOD NON ADD-ON Performing Organization Address City/State/ZIP Code Phon e Number [facility] [id number] [address] [facility] (ABNORMAL) Comprehensive Metabolic Panel (04/12/2018 11:23 AM [facility]) P athologist Signature Potassium, P 3.8 3.6 - 5.2 04/12/2018 [facility] mmol/L 11:45 AM [facility] Sodium, P 137 135 - 145 04/12/2018 [facility] mmol/L 11:45 AM [facility] Chloride, P 102 98 - 107 04/12/2018 [facility] mmol/L 11:45 AM [facility] Bicarbonate, P 23 22 - 29 04/12/2018 [facility] mmol/L 11:45 AM [facility] Anion Gap, P 12 7 - 15 04/12/2018 [facility] 11:45 AM [facility] BUN (Blood Urea 88 (H) 8 - 24 04/12/2018 [facility] Nitrogen), P mg/dL 11:45 AM [facility] Creatinine 1.22 0.74 - 04/12/2018 [facility] 1.35 mg/dL 11:45 AM [facility] eGFR-Black/Afri 75 >=60 04/12/2018 [facility] can [place] mL/min/BSA 11:45 AM [facility] [place] [facility] Comment: ----ADDITIONAL INFORMATION---- Estimated GFR calculated using the 2009 CKD_EPI creatinine equation. eGFR Non-Black/ 64 >=60 mL/min/BSA 04/12/2018 11:45 AM [facility] [place] [facility] Comment: ----ADDITIONAL INFORMATION---- Estimated GFR calculated using the 2009 CKD_EPI creatinine equation. Calcium, Total, P 8.1 (L) 8.6 - 10.0 04/12/2018 11:45 AM [facility] mg/dL [facility] Glucose, P 227 (H) 70 - 140 mg/dL 04/12/2018 11:45 AM [facility] Protein, Total, P 5.1 (L) 6.3 - 7.9 g/dL 04/12/2018 11:45 AM [facility] Albumin, P 2.9 (L) 3.5 - 5.0 g/dL 04/12/2018 11:45 AM [facility] Aspartate 12 8 - 48 U/L 04/12/2018 11:45 AM [facility] IC Aminotransferase (AST), P [facility] Alkaline Phosphatase, P 38 (L) 45 - 115 U/L 04/12/2018 11 :45 AM [facility] Alanine Aminotransferase 15 7 - 55 U/L 04/12/2018 11: 45 AM [facility] ER (ALT), [facility] Bilirubin, Total, P <0.2 <=1.2 mg/dL 04/12/2018 11:45 A M [facility] Specimen Anatomical Collection Method Collection Time Receive d Time (Source) Location / / Volume Laterality Blood (Blood, 04/12/2018 11:23 04/12/2018 Venous) AM CDT 11:25 AM CDT Eugene Bunch III, M.D. LAB BLOOD ADD-ON Performing Organization Address City/State/[facility] Code Phon e Number [facility] [phone] [place] [phone] [place] [address] LAB (ABNORMAL) CBC with Differential (04/12/2018 11:23 AM CDT) [facility] Method Time Signature Hemoglobin 2.9 (CL) 13.2 - 04/12/2018 [facility] 16.6 g/dL 11:46 AM [facility] Hematocrit 9.2 (L) 38.3 - 04/12/2018 [facility] 48.6 % 11:45 AM [facility] Erythrocytes 0.95 (L) 4.35 - 04/12/2018 [facility] 5.65 11:45 AM [facility] HEALTH x10(12)/L [facility] MCV 96.8 78.2 - 04/12/2018 [facility] 97.9 fL 11:45 AM [facility] RBC Distrib Width 15.9 (H) 11.8 - 04/12/2018 [facility] 14.5 % 11:45 AM CDT [facility] Platelet Count 197 135 - 317 04/12/2018 [facility] ER x10(9)/L 11:45 AM CDT [facility] Leukocytes 10.8 (H) 3.4 - 9.6 04/12/2018 [facility] ER x10(9)/L 11:45 AM CDT [facility] Neutrophils 8.96 (H) 1.56 - 04/12/2018 [facility] 6.45 11:45 AM CDT [facility]ALTH x10(9)/L [facility] Lymphocytes 1.13 0.95 - 04/12/2018 [facility] 3.07 11:45 AM CDT HEALTH x10(9)/L [facility] Monocytes 0.68 0.26 - 04/12/2018 [facility] 0.81 11:45 AM CDT HEALTH x10(9)/L [facility] Eosinophils 0.02 (L) 0.03 - 04/12/2018 [facility] 0.48 11:45 AM CDT [facility]ALTH x10(9)/L [facility] Basophils 0.01 0.01 - 04/12/2018 [facility] 0.08 11:45 AM CDT [facility] x10(9)/L [facility] Specimen Anatomical Collection Method Collection Time Receive d Time (Source) Location / / Volume Laterality Blood (Blood, 04/12/2018 11:23 04/12/2018 Venous) AM CDT 11:25 AM CDT Eugene Bunch III, M.D. LAB BLOOD ADD-ON Performing Organization Address City/State/[facility] Code Phon e Number [facility] [id number] [address] [facility] documented in this encounter Visit Diagnoses Diagnosis Hemorrhage Gastrointestinal - Primary Anemia Melena Diabetes Mellitus Type 2 Hyperglycemia ( HCC) Hypoalbuminemia documented in this encounter Administered Medications Inactive Administered Medications - up to 3 most recent administrations Medication Order MAR Action Action Date Dose Rate Site pantoprazole 40 mg in NaCl New Bag 04/12/2018 1:06 PM CDT 40 mg 200 mL/hr 0.9% IVPB (PROTONIX) 40 mg, intravenous, at 200 mL/hr, Administer over 30 Minutes, Once, On Thu04/12/18 at 1248, For 1 dose, Mini-Bag Plus bag sodium chloride injection 10 mL 10 mL, intravenous, As needed, line care, Starting on Thu04/12/18 at 1110, Peripheral Intravenous Catheter and Rapid Infusion Cat heter, prior to blood sampling, post blood transfusion or post blood samplin g sodium chloride injection 3 mL 3 mL, intravenous, As needed, line care, Starting on Thu04/12/18 at 1110, Prior to and following infusion and between multi ple consecutive infusions: sodium chloride 0.9 % injection sodium chloride injection 3 mL 3 mL, intravenous, Every 12 hours scheduled, First dos e on Thu04/12/18 at 2100, Peripheral Intravenous Catheter and Rapi d Infusion Catheter, when no infusion to maintain patency documented in this encounter Active and Recently Administered Medications Times are shown in CDT. Scheduled Medication Order 04/10/2018 04/11/2018 04/12/2018 pantoprazole 40 mg in NaCl 0.9% IVPB (PROTONIX) (COMPLETED) 1306 (New Bag - Provider: Lesli Sotomayor R.N.)1318 (Stopped - Provider: Lesli Sotomayor R.N.) 40 mg, intravenous, at 200 mL/hr, Admini ster over 30 Minutes, Once, Thu04/12/18 at 1248, For 1 dose, Mini-Bag Plus bag sodium chloride injection 3 mL 3 mL, intravenous, Every 12 hours schedu led, First dose on Thu04/12/18 at 2100, Peripheral Intravenous Catheter and Rapid Infusion Catheter, when no infusion to maintain patency PRN Medication Order 04/10/2018 04/11/2018 04/12/2018 sodium chloride injection 10 mL 10 mL, intravenous, As needed, line care , Starting Thu04/12/18 at 1110, Peripheral Intravenous Catheter and Rapid Infusion Catheter, prior to blood sampling, post blood transfusion or post blood sampling sodium chloride injection 3 mL 1 155 (Due)1304 (Due) 3 mL, intravenous, As needed, line care, Starting Thu04/12/18 at 1110, Prior to and following infusion and between multiple consecutive infusions: sodium chloride 0.9 % injection documented in this encounter Additional Health Concerns Assessment Noted Time PHQ-9 Depression Total Score: 18 02/14/2013 9:53 AM CD T documented as of this encounter Care Teams Booth Supervisor Relationship Specialty Start Date End Date Cintia Cobb M.D. PCP - General 02/19/17 02/20/[id number] [id number] documented as of this encounter
--- OUTSIDE RECORDS SUMMARY | 2022-07-29 10:49 | XMS_ITS | Encounter Summary ---
:1960 Author Organization [facility] Address [address] [place] [address] Care Team Providers Name Role Phone Cintia Cobb M.D. Primary Care Provider [phone] Encounter Details Date Type Department Care Team Description 04/16/2018 Clinical Communication Department [facility] [place] [facility] Jose Dnaiel Piper M.D. [address] [address] [place], [place] [phone] (Work) [phone] Social History Tobacco Use Types Packs/Day Years Used Date Smoking Tobacco: Never Smokeless Tobacco: Never Alcohol Use Standard Drinks/Week Comments No 0 (1 standard drink = 0.6 oz pure alcoho l) Sex Assigned at Date Recorded Not on file documented as of this encounter Miscellaneous Notes Telephone Encounter - Suzie Hurt - 04/16/2018 12:39 PM CDT Renetta from [facility] is calling needing a Quantity Limit Exemption for the Omeprazole 20mg. Please reach out to [facility] at [phone]. Thank you! documented in this encounter Plan of Treatment Not on filedocumented as of this encounter Visit Diagnoses Not on filedocumented in this encounter Additional Health Concerns Assessment Noted Time PHQ-9 Depression Total Score: 18 02/14/2013 9:53 AM CD T documented as of this encounter Care Teams Dental Instructor Relationship Specialty Start Date End Date Cintia Cobb M.D. PCP - General 02/19/17 02/20/[address] [place] [phone] documented as of this encounter
--- OUTSIDE RECORDS SUMMARY | 2022-07-29 10:49 | XMS_ITS | Encounter Summary ---
:1960 Author Organization [facility] Address [address] [place] [address] Care Team Providers Name Role Phone Cintia Cobb M.D. Primary Care Provider [phone] Encounter Details Date Type Department Care Team Description 04/12/2018 Nurse Triage Department of [facility] Kathrin John R.N. Medicine, [facility], in [address] [place], [place] [address] [place] [address] [place] [address] [phone] Social History Tobacco Use Types Packs/Day Years [...] documented as of this encounter Care Teams Veterinary Technologist Relationship Specialty Start Date End Date Cintia Cobb M.D. PCP - General 02/19/17 02/20/[id number] [phone] documented as of this encounter
--- OUTSIDE RECORDS SUMMARY | 2022-07-29 10:50 | XMS_ITS | Encounter Summary ---
:1960 Author Organization [facility] Address [address] [place] [address] Care Team Providers Name Role Phone Cintia Cobb M.D. Primary Care Provider [phone] Reason for Visit Reason Comments Communication Encounter Details Date Type Department Care Team Description 08/07/2017 Clinical Communication Department of [facility] Communication Medicine, [facility], in [place]. [address] [phone] Social History Tobacco Use Types Packs/Day Years Used Date Smoking Tobacco: Never Smokeless Tobacco: Never Sex Assigned at Date Recorded Not on file documented as of this encounter Miscellaneous Notes Telephone Encounter - Cintia Cobb M.D. - 08/07/2017 6:48 AM DUTY OFFICER Please fax a copy of Ed's preop note and EKG to [facility]. Patient did not know the exact location to fax it to, but the phone number he calls is [phone] or [phone], so hopefully someone at one of those numbers can tell us where to direct it. Cintia Segura OFFICER documented in this encounter Plan of Treatment Not on filedocumented as of this encounter Visit Diagnoses Not on filedocumented in this encounter Additional Health Concerns Assessment Noted Time PHQ-9 Depression Total Score: 18 02/14/2013 9:53 AM CD T documented as of this encounter Care Teams Code Enforcement Supervisor Relationship Specialty Start Date End Date Cintia Cobb M.D. PCP - General 02/19/17 02/20/[address] [place] [phone] documented as of this encounter
--- OUTSIDE RECORDS SUMMARY | 2022-07-29 10:50 | XMS_ITS | Encounter Summary ---
:1960 Author Organization [facility] Address [address] [place] [address] Care Team Providers Name Role Phone Cintia Cobb M.D. Primary Care Provider [phone] Encounter Details Date Type Department Care Team Description 01/09/2018 Infusion Department of Infusion Duncan Copeland Wound Toe Without Damage To Nail Open Subsequent (Primary Dx); Therapy in [place] M.D. Neuropathy Peripheral; [address] Diabetes Mellitus Type 2 (HCC) [address] [place] [phone] Social History Tobacco Use Types Packs/Day Years Used Date Smoking Tobacco: Never Smokeless Tobacco: Never Alcohol Use Standard Drinks/Week Comments No 0 (1 standard drink = 0.6 oz pure alcoho l) Sex Assigned at Date Recorded Not on file documented as of this encounter Progress Notes Sruthi Campos R.N. - 01/09/2018 12:30 PM CDT Ed comes in with his for recheck of right toe wounds. He was seen by Dr. Song in the clinicearlier this week and Aquacel Ag with Tegaderm covering dressings started. They have been doing daily dressing changes at home and report no difficulties with this. 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 The dressing on the right great toe is removed revealing 2 separate wounds, one on the dorsum of thetoe and the other at the plantar base of the toe. There is a small amount of thick serous drainage on the bandage at both wound sites. The foot has an overall foul odor present, but no significant odor directly from the wounds and no malodorous drainage noted. The skin of the LE is dry and flaky, so lotion is applied today. There is no edema present. Hemosiderin staining noted scattered throughout the LE. Patient reports he had been diabetic but since weight loss surgery this has resolved. The right great toenail is thick and discolored yellow, only partially attached at the base. The second toenail is thick and black in color. No drainage noted from either nail bed. The three other toenails are thick but firmly attached. Pedal pulses present and strong in the RLE; skin is pink and warm. Patient reports diminished sensation in the foot and little to no sensation in the toes. Wounds: The right great toe dorsal wound is circular with regular borders and measures 0.2cm x 0.3cm x 0.2cm. The wound edges are detached with 0.1cm of undermining present all around. The wound bed is moist and pink. The surrounding skin is intact, but spongy with palpation. No erythema,induration, red streaking, or pain with palpation present. The right great toe plantar wound at the base of the toe is oval shaped measuring 0.5cm x 1cm x 0.2cm. The edges are detached and there is 0.1cm of undermining present all around. The wound bed is moist and 50% covered with firmly attached fibrin tissue noted. The surrounding skin is calloused and firm. No erythema, induration, red streaking, or pain with palpation present. The wounds were aggressively cleansed with wound cleanser and allowed to dry. Being these wounds arestill a bit moist, will continue the Aquacel Ag for a few more days. Aquacel Ag strip applied to cover wounds and plain gauze wrap used to secure. We discussed changing this dressing every other day. Once wounds are no longer draining, recommend applying small amount of MediHoney to wound beds and covering with regular bandage. Advised them to cleanse wounds with each dressing change. They have woundcleanser at home they had purchased from [employer]. Ed's reports using hydrogen peroxide in the past, and I advised them not to use this as a wound cleanser, which they verbalized understanding of.I recommended they continue lotioning legs/feet daily. There are 2 other calloused areas with dark scab tissue present, one on the dorsum of the second toeand one on the distal portion of the 3rd toe. Recommended application of a small amount of MediHoneyto these scabbed areas and cover with bandage. Cleanse and change dressings to these areas every other day until skin is pink and healthy. I recommended Ed see a rail operations controller for evaluation of his wounds, toenails, and calloused areas. I provided him with Dr. Blackwell's name and let him know she typically sees patient's here on Mondays. Iadvised he could either call and set up and appointment with her here, or could check with [facility] on podiatry schedule there. He will consider this as he has not seen a rail operations controller before, but is not sure he can make it work with his schedule. In the meantime, they will continue with every other day dressing changes and will follow up with [facility] in a week or so. I provided him with the names of the wound care nurses he could see here, and gavehim the phone number to infusion therapy department so he could call and set something up should he want or need to come in for recheck. Both patient and his verbalized understanding of plan and how to perform wound care. I providedthem with a small tube of MediHoney to use. They report having other dressing supplies at home. documented in this encounter Plan of Treatment Not on filedocumented as of this encounter Visit Diagnoses Diagnosis Wound Toe Without Damage To Nail Open Kiran bsequent - Primary Neuropathy Peripheral Diabetes Mellitus Type 2 (HCC) documented in this encounter Additional Health Concerns Assessment Noted Time PHQ-9 Depression Total Score: 18 02/14/2013 9:53 AM CD T documented as of this encounter Care Teams Family Practice Physician Assistant Relationship Specialty Start Date End Date Cintia Cobb M.D. PCP - General 02/19/17 02/20/[id number] [phone] documented as of this encounter
--- OUTSIDE RECORDS SUMMARY | 2022-07-29 10:50 | XMS_ITS | Encounter Summary ---
:1960 Author Organization [facility] Address [address] [place] [address] Care Team Providers Name Role Phone Cintia Cobb M.D. Primary Care Provider Reason for Referral Outpatient (Routine) - Closed Specialty Diagnoses / Procedures Referred By Contact Refer red To Contact Diagnoses Neuropathy Peripheral [facility] Karla Piper M.D. [address] [place] [phone] Referral ID Status Reason Start Date Expiration Date Visits Requ ested Visits Authorized [id number] Closed 09/01/2017 02/28/2018 1 1 UNT SUPPORT ANALYST Encounter Details Date Type Department Care Team Description 09/01/2017 Orders Only Department of [facility] Fei Cobb Peripheral Medicine, [place] M.D. (Primary Dx) [facility], in [address] [place] [phone] [place], [place] [phone] (W ork) [phone] Social History Tobacco Use Types Packs/Day Years Used Date Smoking Tobacco: Never Smokeless Tobacco: Never Sex Assigned at Date Recorded Not on file documented as of this encounter Plan of Treatment Not on filedocumented as of this encounter Results EMG (10/13/2017 1:53 PM ACCOUNT SUPPORT ANALYST) Specimen (Source) Anatomical Collection Method Collection Time Re ceived Time Location / / Volume Laterality 10/13/2017 1:53 PM ACCOUNT SUPPORT ANALYST Narrative EMG - 10/15/2017 10:20 AM ACCOUNT SUPPORT ANALYST 13-Oct-2017 ? Electromyography ? Final Report Study Number: 1 EMG Bellows Assembler: Eli Lopez Referred by: Cintia Cobb () Referred for: peripheral neuropathy Referral Code: RX: [id number] SUMMARY: Prior to starting the procedure , the patient's identity was verified, pertinent available records were reviewed, the nature of the procedure was explained, the appropriate sites of the exam were confirmed directly with the pa tient, and a pre-procedure pause was performed for final verification of all of the above. ?? Nerve conduction studies showed absent s ensory nerve action potentials in the upper and lower extremities. Nerve conduction studies showed low-amplitude compound muscle action pot entials in ??upper and lower extremities with mild slowing of conduction velocities and normal dist al latencies. No conduction block or dispersion was noted. F-wave latencies were within estimates. Blinks were normal. ??Needle examination showed sparse fibrillation potentials and mildly large motor unit potentials mainly in distal muscles. 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 Farhana Lopez () NERVE CONDUCTIONS ?Temperat ure: upper: ?0, lower: 31.8 ? ??C ?Record ?Rep ? Normal ?Normal Distal Normal ??F-Wave F-Wave Nerve ? Type ?Site ?Stim Side Amp Amp ?CV CV ? Lat ?? Lat ? Lat ?Est ?extenso r ?digitor um ?brevis Peroneal ?motor ?? (pedis) ?L ?0.5 (> 2.0) ??34 (> 41) 5.0 ?? (< 6.6) ?Remark: moved g1 ?abducto r Tibial ?motor ?? hallucis ? L ?0.5 (> 4.0) ??37 (> 40) 4.3 ?? (< 6.1) ?Remark: moved g1 ? Sural ? sensory ankle ?L ?(> 6.0) ? (> 40) NR ? (< 4.5) ?abducto r Ulnar ? motor ?? digiti minimi ?L ?3.8 (> 6.0) ??50 (> 51) 2.9 ?? (< 3.6) 34.9 ?? 33.7 ?Remark: moved g1 ? Median ?sensory index ?L ?(> 15.0) ?(> 56) NR ? (< 3.6) ? Ulnar ? sensory fifth ?L ?(> 10.0) ?(> 54) NR ? (< 3.1) ? BLINKS ?Temperature: upper: ?0, lower: 31.8 ? ??C ? R1 ?R2 ?R2 ?Recording ?Stim ?Ipsi ?Ipsi ?Contra ?? Nerve ? Point ?Point ?Side Latency Latency Latency ? l/r orbic. Trigeminal ?oculi ?S upraorbital Left 12 ?31.5 ?40.5 ? NEEDLE EMG ? Ins ? Spont ? MUP ?Recruitment ?? Duration ??Amplitude Phases ? Muscle ?Side Act ? Fib ??Fasc Normal Activ Reduced Rapid Long Short High Low ??% ?Turns Medial Gastroc ? L ?Increased 0 ?0 ?Normal ? Abductor pollicis brevis ?L ?Increased + ?0 ?------ ? + ? + ?+ ? First Dorsal Interosseous ??L ?Normal ?0 ?0 ?------ ? + ? + ?50% ??++ ? Pronator teres ? L ?Normal ?0 ?0 ?Normal ? Tibialis Anterior ?L ?Normal ?0 ?0 ?------ ? + ? + ?+ ? 15% ? First Dorsal Interosseous (pedis) ? L ?Increased + ?0 ?------ ? This interpretation has been electron ically signed: Eli Lopez DO at 10/14/2017 5:04:07 PM ACCOUNT SUPPORT ANALYST Cintia Copeland M.D. NEUROLOGY ORDERABLES Performing Organization Address City/State/[facility] Code Phon e Number [facility] EMG documented in this encounter Visit Diagnoses Diagnosis Neuropathy Peripheral - Primary documented in this encounter Additional Health Concerns Assessment Noted Time PHQ-9 Depression Total Score: 18 02/14/2013 9:53 AM CD T documented as of this encounter Care Teams Commercial Sewing Instructor Relationship Specialty Start Date End Date Cintia Cobb M.D. PCP - General 02/19/17 02/20/[address] [place] [address] [place] [phone] documented as of this encounter
--- OUTSIDE RECORDS SUMMARY | 2022-07-29 10:50 | XMS_ITS | Encounter Summary ---
:1960 Author Organization [facility] Address [address] [place] [address] Care Team Providers Name Role Phone Cintia Cobb M.D. Primary Care Provider [phone] Reason for Visit Reason Comments Pre-op Exam Appointment Request (Routine) - Closed Specialty Diagnoses / Procedures Referred By Contact Refer red To Contact Family Medicine Referral ID Status Reason Start Date Expiration Date Visits Requ ested Visits Authorized [id number] Closed 07/07/2017 01/03/2018 1 1 Encounter Details Date Type Department Care Team Description 08/04/2017 Office Visit Department of Family Tigist Cobb reoperative Exam (Primary Dx); Medicine, Jose Daniel Piper M.D. Diabetes Mellitus Type 2 (HCC); [facility], [place] [address] Neuropat hy Peripheral; [facility] Pacemaker Cardiac Status [address] [place] [address] [address] [place], [place] [phone] (Work) [phone] Social History Tobacco Use Types Packs/Day Years Used Date Smoking Tobacco: Never Smokeless Tobacco: Never Sex Assigned at Date Recorded Not on file documented as of this encounter Last Filed Vital Signs Vital Sign Reading Time Taken Comments Blood Pressure 137/81 08/04/2017 6:49 PM [employer] Pulse 75 08/04/2017 6:49 PM [employer] Temperature 36.6 ??C (97.9 ??F) 08/04/2017 6:49 PM [employer] Respiratory Rate - - Oxygen Saturation 100% 08/04/2017 6:49 PM [employer] Inhaled Oxygen Concentration - - Weight 76.8 kg (169 lb 5.4 oz) 08/04/2017 6:49 PM [employer] Height - - Body Mass Index 22.94 06/02/2017 6:04 PM CDT documented in this encounter Progress Notes Xochitl Hackett L.P.N. - 08/04/2017 6:45 PM CST Client here for preop exams. 08/12 - [facility], unsure of name of surgeon 08/28 - paniculectomy with Dr. Motley (?) in [place], unsure what site. Not feeling these days - since pacemaker placed. Legs heavy, difficulty to climb stairs, area aroundpacer painful, fatigued a lot of the time. Difficulty doing his job as he's often sleepy. [employer] documented in this encounter H&P Notes Cintia Cobb M.D. - 08/04/2017 6:45 PM CST SUBJECTIVE CHIEF COMPLAINT / REASON FOR VISIT Ed Cuauhtemoc Luna is a 57 y.o. male who presents for evaluation of Pre-op Exam. HISTORY OF PRESENT ILLNESS HPI Ed is undergoing a left shoulder surgery with [facility] on August 12. He has never had anydifficulties with anesthesia, bleeding, or blood clots. He does note continued fatigue and a burningsensation in his legs. The legs also feel heavy and swollen although they are not swollen. Gabapentin is not helping despite taking more tablets than ordered. He continues to feel that the pacemaker isresponsible for this. Current Outpatient Medications Medication Sig ??? allopurinol (for_ZYLOPRIM) 300 mg tablet Take 1 tablet (300 mg total) by mouth daily. ??? cyanocobalamin, vitamin B-12, 1,000 mcg/mL kit Inject 1,000 mcg under the skin every 30 (thirty)days. ??? ferrous sulfate 325 mg (65 mg iron) tablet Take 1 tablet by mouth 2 (two) times a day. ??? furosemide (LASIX) 40 mg tablet Take 1 tablet (40 mg total) by mouth daily. ??? gabapentin (for_NEURONTIN) 600 mg tablet Take 2 tablets (1,200 mg total) by mouth 3 (three) times a day. ??? lisinopril (for_PRINIVIL,ZESTRIL) 10 mg tablet Take 1 tablet (10 mg total) by mouth daily. ??? PEDIATRIC MULTIVITAMIN NO.76 (FLINTSTONES COMPLETE ORAL) Take 1 tablet by mouth 2 (two) times a day. Patient Active Problem List Diagnosis Date Noted ??? Diabetes Mellitus Type 2 With Diabetic Neuropathy (HCC) 07/01/2017 ??? Neuropathy Peripheral 07/01/2017 ??? Diabetes Mellitus Type 2 (HCC) 06/03/2017 ??? 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 Pacemaker Cardiac Status Post 03/18/2017 ??? Wart Genital 11/05/2015 ??? Flutter Atrial (HCC) 01/04/2015 ??? Tinea Pedis 02/02/2014 ??? Eczema 01/25/2014 ??? Intertrigo 07/14/2012 ??? 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 Benign Prostatic Hyperplasia Without Obstruction 02/15/2010 ??? Hypertension 12/28/2009 ??? 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 BYPASS OF STOMACH N/A 11/19/2014 Gastric bypass ??? CARDIAC PACEMAKER PLACEMENT ??? CHONDRECTOMY OF SPINE N/A 02/19/1989 Discectomy ??? CYSTOSCOPY kidney stone ??? OTHER SURGICAL HISTORY cystoscopy Family History Problem Relation Age of Onset ??? Hypertension Father ??? Heart failure Father ??? Diabetes Mother ??? Kidney disease Mother ??? Heart attack Mother Social History Social History ??? Marital status: Spouse name: N/A ??? Number of children: N/A ??? 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 Smoking status: Never Smoker ??? Smokeless tobacco: Never Used ??? Alcohol use Not on file ??? Drug use: Unknown ??? Sexual activity: Not on file Other Topics Concern ??? Not on file Social History Narrative Lives with . REVIEW OF SYSTEMS Constitutional: Positive for generalized weakness. Negative for fatigue, fever, loss of appetite, night sweats, weight gain of more than 10 pounds and weight loss of more than 10 pounds. Skin: Negative for skin rash, change in mole or skin spot, breast lump and nipple discharge. Eyes: Negative for double vision, visual problems and sudden loss of vision. HENT: Negative for difficulty hearing, persistent hoarse voice and sinus congestion. Respiratory: Negative for coughing up mucus (phlegm), dry cough, shortness of breath and wheezing. Cardiovascular: Negative for chest pain, pressure or tightness, swelling in the legs or feet, rapid or fluttering heart beat and pain in the calf muscles when walking. Gastrointestinal: Negative for abdominal (belly) pain or cramping, blood in stool, constipation, diarrhea, heartburn, nausea, vomiting and difficulty swallowing. Genitourinary: Negative for difficulty urinating and frequency. Hematological: Negative for abnormal lumps or bumps and bruises or bleeds easily. Musculoskeletal: Negative for arthralgias, back pain, pain or stiffness in the joints, joint swelling and muscle pain/stiffness. Neurological: Positive for numbness or shooting pain in hands, arms, legs, or feet, loss of balance or tendency to fall easily and weakness in arms or legs. Negative for seizures, loss of consciousness, light-headedness, headaches, blackouts and slurred speech. Psychiatric/Behavioral: Negative for sleep disturbance, feeling down, depressed, or hopeless over past two weeks and feeling nervous, anxious, or on edge in past two weeks. OBJECTIVE Blood pressure 137/81, pulse 75, temperature 36.6 ??C, temperature source Temporal, weight 76.8 kg, SpO2 100 %. PHYSICAL EXAM Constitutional: He is oriented to person, place, and time. He appears well- developed and well-nourished. HENT: Head: Normocephalic and atraumatic. Right Ear: External ear normal. Left Ear: External ear normal. Nose: Nose normal. Mouth/Throat: Oropharynx is clear and moist. No oropharyngeal exudate. Eyes: EOM are normal. Pupils are equal, round, and reactive to light. Neck: Neck supple. Cardiovascular: Normal rate, regular rhythm, normal heart sounds and intact distal pulses. He exhibits no edema. Exam reveals no gallop and no friction rub. No murmur heard. Pulmonary/Chest: Breath sounds normal. Abdominal: Soft. Bowel sounds are normal. He exhibits no mass. There is no tenderness. There is no rebound and no guarding. Lymphadenopathy: He has no cervical adenopathy. Neurological: He is alert and oriented to person, place, and time. No cranial nerve deficit. Skin: Skin is warm. No rash noted. Psychiatric: He has a normal mood and affect. His behavior is normal. Lab Results Component Value Date NA 138 08/04/2017 K 4.1 08/04/2017 CL 96 (L) 08/04/2017 HCO3 31 (H) 08/04/2017 CREATININE 1.13 08/04/2017 EGFR 71 08/04/2017 BUN 28 (H) 08/04/2017 ANIONGAP 11 08/04/2017 GLUCOSE 146 (H) 08/04/2017 CALCIUM 9.5 08/04/2017 Lab Results Component Value Date HGBA1C 5.0 08/04/2017 Lab Results Component Value Date WBC 7.7 08/04/2017 HGB 11.3 (L) 08/04/2017 HCT 34.4 (L) 08/04/2017 MCV 96.6 08/04/2017 PLT 162 08/04/2017 ECG 12 Lead Order: [id number] Status: Final result Visible to patient: No (Inaccessible in Patient Online Services) Dx: Preoperative Exam Ref Range & Units 3d ago Ventricular Rate ECG/Min BPM 66 GA Interval ms 192 QRSD Interval ms 182 QT Interval ms 468 QTC Interval ms 490 P [place] degrees 45 R [place] degrees -91 T Wave [place] degrees 71 Clinical Diagnosis Dual chamber electronic pacemaker Sinus rhythm When compared with ECG of 20-JAN-2017 05:46, No significant change was found ASSESSMENT / PLAN #1 Preoperative Exam Patient has no known history of coronary artery disease but he does have a pacemaker for complete heart block. No history of lung problems. He has diabetes but blood sugars have been normal since his bariatric surgery. He was advised to hold his lisinopril the morning of his procedure. No aspirin or NSAIDs for 1 week before. He is deemed medically optimized. - BMP (Basic Metabolic Panel) - CBC without Differential - ECG 12 Lead #2 Diabetes Mellitus Type 2 (HCC) A1c is at goal. Blood sugars have been normal since his bariatric surgery. - Hemoglobin A1c #3 Neuropathy Peripheral Discussed with patient that I reached out to Neurology to see if they had dealt with neuropathy after a pacemaker placement. Although they have not, it was felt it could be related to a metabolic phenomenon with the increased blood flow. Recommended the patient not take more than 2 gabapentin 600 mg tablets 3 times per day. Encouraged him to strongly consider following up with Neurology and undergoing any EMG to determine if any treatment may help to reverse his symptoms. #4 Pacemaker Cardiac Status Post Patient continues to be upset regarding the pacemaker placement. He has chosen not to follow up withCardiology to this point. [employer] documented in this encounter Plan of Treatment Not on filedocumented as of this encounter Procedures Procedure Name Priority Date/Time Associated Diagnosis Comme nts ECG Routine 08/04/2017 8:03 PM Preoperative Exam Resu lts for this [employer] procedure are i n the results section. CBC WITHOUT Routine 08/04/2017 7:58 PM Preoperative Exam Resu lts for this DIFFERENTIAL, B [employer] procedure ar e in the results section. HEMOGLOBIN A1C, B Routine 08/04/2017 7:58 PM Diabetes Mellitus Results for this [employer] Type 2 (HCC) procedure are i n the results section. BASIC METABOLIC Routine 08/04/2017 7:58 PM Preoperative Exam R esults for this PANEL, S/P [employer] procedure are i n the results section. documented in this encounter Results ECG 12 Lead (08/04/2017 8:03 PM [employer]) [facility] Method Time Signature Ventricular 66 BPM MUSE Rate ECG/Min GA Interval 192 ms MUSE QRSD Interval 182 ms MUSE QT Interval 468 ms MUSE QTC Interval 490 ms MUSE P [place] 45 degrees MUSE R [place] -91 degrees MUSE T Wave [place] 71 degrees MUSE Clinical Dual chamber electronic pacemaker MUSE Diagnosis Sinus rhythm When compared with ECG of 20-JAN-2017 05:46, No significant change was found Specimen Anatomical Collection Method Collection Time Receive d Time (Source) Location / / Volume Laterality 08/04/2017 8:03 PM 7 8:27 [employer] PM [employer] Narrative This result has an attachment that is no t available. Cintia Copeland M.D. ECG ORDERABLES Performing Organization Address City/State/ZIP Code Phon e Number MUSE MUSE NA Hemoglobin A1c (08/04/2017 7:58 PM [employer]) P athologist Signature Hemoglobin A1c, 5.0 4.2 - 5.6 08/04/2017 [facility] B % 9:56 PM [facility] [place] [facility] Specimen Anatomical Collection Method Collection Time Receive d Time (Source) Location / / Volume Laterality Blood (Blood, 08/04/2017 7:58 PM 08/04/20 17 8:02 Venous) [employer] PM [employer] Cintia Copeland M.D. LAB BLOOD ADD-ON Performing Organization Address City/[facility] Phon e Number [facility] [id number] [place] [address] [facility] (ABNORMAL) CBC without Differential (08/04/2017 7:58 PM [employer]) Patholo gist Method Time Signature Hemoglobin 11.3 (L) 13.2 - 08/04/2017 [facility] 16.6 g/dL 8:09 PM [facility] Hematocrit 34.4 (L) 38.3 - 08/04/2017 [facility] 48.6 % 8:09 PM [facility] Erythrocytes 3.56 (L) 4.35 - 08/04/2017 [facility] 5.65 8:09 PM [facility] x10(12)/L [facility] [place] [facility] MCV 96.6 78.2 - 08/04/2017 [facility] 97.9 fL 8:09 PM [facility] RBC Distrib Width 13.5 11.8 - 08/04/2017 [facility] 14.5 % 8:09 PM [facility] Platelet Count 162 135 - 317 08/04/2017 [facility] x10(9)/L 8:09 PM [facility] Leukocytes 7.7 3.4 - 9.6 08/04/2017 [facility] x10(9)/L 8:09 PM [facility] Specimen Anatomical Collection Method Collection Time Receive d Time (Source) Location / / Volume Laterality Blood (Blood, 08/04/2017 7:58 PM 08/04/20 17 8:02 Venous) [employer] PM [employer] Cintia Copeland M.D. LAB BLOOD ADD-ON Performing Organization Address City/State/ZIP Code Phon e Number [facility]- [id number] [address] [place] [facility] (ABNORMAL) BMP (Basic Metabolic Panel) (08/04/2017 7:58 PM [facility]) P athologist Signature Potassium, S 4.1 3.6 - 5.2 08/04/2017 [facility] mmol/L 9:56 PM [facility] Sodium, S 138 135 - 145 08/04/2017 [facility] mmol/L 9:56 PM [facility] Chloride, S 96 (L) 98 - 107 08/04/2017 [facility] mmol/L 9:56 PM [facility] Bicarbonate, S 31 (H) 22 - 29 08/04/2017 [facility] mmol/L 9:56 PM [facility] Anion Gap 11 7 - 15 08/04/2017 [facility] 9:56 PM [facility] BUN (Blood Urea 28 (H) 8 - 24 08/04/2017 [facility] Nitrogen), S mg/dL 9:56 PM [facility] Creatinine 1.13 0.74 - 08/04/2017 [facility] 1.35 mg/dL 9:56 PM [facility] eGFR 71 >=60 08/04/2017 [facility] Non-Black/Afric mL/min/BSA 9:56 PM [facility] EM- an [place] [facility] Comment: ----ADDITIONAL INFORMATION---- Estimated GFR calculated using the 2009 CKD_EPI creatinine equation. eGFR-Black/ 82 >=60 mL/min/BSA 2016 9:56 PM [facility] Comment: ----ADDITIONAL INFORMATION---- Estimated GFR calculated using the 2009 CKD_EPI creatinine equation. Calcium, Total, S 9.5 8.9 - 10.1 mg/dL 08/04/2017 9:56 PM [facility] Glucose, S 146 (H) 70 - 140 mg/dL 08/04/2017 9:56 PM [facility] Specimen Anatomical Collection Method Collection Time Receive d Time (Source) Location / / Volume Laterality Blood (Blood, 08/04/2017 7:58 PM 08/04/20 17 8:02 Venous) [employer] PM [employer] Cintia Copeland M.D. LAB BLOOD ADD-ON Performing Organization Address City/State/ZIP Code Phon e Number [facility]- [address] [place] [id number] [facility] documented in this encounter Visit Diagnoses Diagnosis Preoperative Exam - Primary Diabetes Mellitus Type 2 (HCC) Neuropathy Peripheral Pacemaker Cardiac Status Post documented in this encounter Additional Health Concerns Assessment Noted Time PHQ-9 Depression Total Score: 18 02/14/2013 9:53 AM CD T documented as of this encounter Care Teams Pool Manager Relationship Specialty Start Date End Date Cintia Cobb M.D. PCP - General 02/19/17 02/20/[address] [place] [phone] documented as of this encounter
--- OUTSIDE RECORDS SUMMARY | 2022-07-29 10:50 | XMS_ITS | Encounter Summary ---
:1960 Author Organization [facility] Address [address] [place] [address] Care Team Providers Name Role Phone Cintia Cobb M.D. Primary Care Provider [phone] Reason for Visit Reason Comments Elbow Pain left Encounter Details Date Type Department Care Team Description 02/14/2018 Emergency [place] [facility], Inj ury Elbow Initial Department P.A.-C. Left (Primary Dx) [address] [phone] Social History Tobacco Use Types Packs/Day Years Used Date Smoking Tobacco: Never Smokeless Tobacco: Never Alcohol Use Standard Drinks/Week Comments No 0 (1 standard drink = 0.6 oz pure alcoho l) Sex Assigned at Date Recorded Not on file documented as of this encounter Last Filed Vital Signs Vital Sign Reading Time Taken Comments Blood Pressure 122/81 02/14/2018 6:15 PM CDT Pulse 65 02/14/2018 6:15 PM CDT Temperature 37.5 ??C (99.5 ??F) 02/14/2018 6:15 PM CDT Respiratory Rate 20 02/14/2018 6:15 PM CDT Oxygen Saturation 100% 02/14/2018 6:15 PM CDT Inhaled Oxygen Concentration - - Weight - - Height 182.9 cm (6') 02/14/2018 6:38 PM CDT Body Mass Index - - documented in this encounter Medications at Time [...] under the skin every 30 (thirty) days. furosemide (LASIX) 40 mg Take 1 tablet (40 90 tablet 3 07/0906/01/2018 tablet mg total) by mouth daily. gabapentin Take 2 tablets 540 tablet 3 08/04/2017 03/11/2018 (for_NEURONTIN) 600 mg (1,200 mg total) by tablet mouth 3 (three) times a day. documented as of this encounter ED Notes Tali Mehta P.A.-C., P.A. - 02/14/2018 7:18 PM CDT SUBJECTIVE CHIEF COMPLAINT/REASON FOR VISIT Elbow Pain (left) HISTORY OF PRESENT ILLNESS History provided by: Patient Elbow Pain Location: Elbow Elbow location: L elbow Injury: yes Time since incident: 2 weeks Mechanism of injury: fall Fall: Fall occurred: Standing Impact surface: [place] Point of impact: Onto L forearm with elbow flexed. Entrapped after fall: no Pain details: Quality: Tingling and dull Radiates to: Does not radiate Severity: Mild Duration: 2 weeks Timing: Intermittent (Intermiitent pains in the elbow with occasional movement. Currently, no pain.) Progression: Resolved Handedness: Right-handed Dislocation: no Foreign body present: No foreign bodies Prior injury to area: Pt had surgery of the L elbow in the remote past and comes to the ED requesting an xray of his elbow before he sees his surgeon. He has not otherwise been evaluated since the fall. Worsened by: Movement Associated symptoms: tingling (into L 5th finger) Associated symptoms: no fever REVIEW OF SYSTEMS Constitutional: Negative for fever. HENT: Negative. Eyes: Negative. Respiratory: Negative for cough and shortness of breath. Cardiovascular: Negative for chest pain. Gastrointestinal: Negative for diarrhea, nausea and vomiting. Endocrine: Negative. Genitourinary: Negative. Musculoskeletal: Negative. Negative for joint swelling. Skin: Negative. Allergic/Immunologic: Negative. Neurological: Negative. Hematological: Negative. Psychiatric/Behavioral: Negative. OBJECTIVE Initial Vitals [02/14/181814] Temperature Pulse Rate Heart Rate Resp Rate Blood Pressure SpO2 37.5 ??C 65 -- 20 122/81 100 % Pain Score -- PHYSICAL EXAMINATION Constitutional: He appears well-developed and well-nourished. No distress. Pleasant, conversant HENT: Head: Normocephalic and atraumatic. Mouth/Throat: Oropharynx is clear and moist. Mucous membranes are moist. Eyes: EOM are normal. Pupils are equal, round, and reactive to light. Cardiovascular: Normal rate. Pulmonary/Chest: Effort normal. No respiratory distress. Musculoskeletal: Normal range of motion. Left elbow: He exhibits normal range of motion, no swelling, no effusion, no deformity and no laceration. Tenderness (Minimal) found. Lateral epicondyle and olecranon process tenderness noted. Neurological: He is alert and oriented to person, place, and time. Skin: Skin is warm and dry. Psychiatric: He has a normal mood and affect. His behavior is normal. Nursing note and vitals reviewed. ASSESSMENT/PLAN Impression and Plan DD: Contusion, fracture, sprain. Xray completed and copy sent with pt as his surgeon is in the [facility] area. Further evaluation and mgmt per surgeon as pt tells me he is only here tonight to get an xray done before seeing him. RTER prn.. Radiology results: Personally reviewed the radiology image. Final Diagnoses: as of Feb 15 1952 Injury Elbow Initial Left Tali Mehta P.A.-C., P.A. 02/14/182052 Danni Campbell R.N. - 02/14/2018 6:27 PM CDT Patient comes to the ED with Left elbow pain. 2 weeks ago he fell directly on the elbow. He has had surgery on the elbow before and would like an x-ray of it before he [place] Danni Campbell R.N. 02/14/18 1828 documented in this encounter Plan of Treatment Not on filedocumented as of this encounter Procedures Procedure Name Priority Date/Time Associated Comments Diagnosis DX ELBOW LEFT 3+ RAD - Semiurgent 02/14/2018 7:36 Resu lts for this VIEWS (Fast; most ED PM CDT procedure are in patients; some the results inpatients) section. documented in this encounter Results DX Elbow Left 3+ Views (02/14/2018 7:36 PM CDT) Anatomical Region Laterality Modality Upper Extremity, Elbow, Musculoskeletal RST LOS Left Digital Radiography Specimen (Source) Anatomical Collection Method Collection Time Re ceived Time Location / / Volume Laterality 02/15/2018 7:41 AM CDT Impressions 02/15/2018 7:43 AM CDT IMPRESSION: No radiographic evidence of acute fracture or elbow effusion dislocation. Mild to moderate olecranon spur, unchanged. Probable small elbow joint effusion, stable to minimally prog ressed since 11/18/2011. Interval progression of arthritic changes involvi ng the medial lateral elbow joint spaces. No erosive or osteolytic changes . No evidence of opaque foreign body. Vascular calcifications. Narrative 02/15/2018 7:43 AM CDT EXAM: DX ELBOW LEFT 3+ VIEWS Procedure Note Wellington Mayers M.D. - 02/15/2018Formatt ing of this note might be different from the original. EXAM: DX ELBOW LEFT 3+ VIEWS IMPRESSION: No radiographic evidence of acute fracture or elbow effusion dislocation. Mild to moderate olecranon spur, unchanged. Probable small elbow joint effusion, stable to minimally prog ressed since 11/18/2011. Interval progression of arthritic changes involvi ng the medial lateral elbow joint spaces. No erosive or osteolytic changes . No evidence of opaque foreign body. Vascular calcifications. Tali Mehta P.A.-C. [facility] documented in this encounter Visit Diagnoses Diagnosis Injury Elbow Initial Left - Primary documented in this encounter Additional Health Concerns Assessment Noted Time PHQ-9 Depression Total Score: 18 02/14/2013 9:53 AM CD T documented as of this encounter Care Teams Education Specialist Relationship Specialty Start Date End Date Cintia Cobb M.D. PCP - General 02/19/17 02/20/[id number] [place] [phone] documented as of this encounter
--- OUTSIDE RECORDS SUMMARY | 2022-07-29 10:50 | XMS_ITS | Encounter Summary ---
:1960 Author Organization [facility] Address [address] [place] [address] Care Team Providers Name Role Phone Cintia Cobb M.D. Primary Care Provider [phone] Reason for Visit Reason Comments Fall the other day due to pacemaker Wants pacemaker re moved - hurt knee. 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 Pacemaker Cardiac Status Post; [facility], [place] [address] Pain Kne e Right; [facility] Gastric Bypass Status Post [address] [address] [place], [place] [phone] (W ork) [id number] [phone] Social History Tobacco Use Types Packs/Day Years Used Date Smoking Tobacco: Never Smokeless Tobacco: Never Sex Assigned at Date Recorded Not on file documented as of this encounter Last Filed Vital Signs Vital Sign Reading Time Taken Comments Blood Pressure 139/84 11/24/2017 6:16 PM CDT Pulse 69 11/24/2017 6:16 PM CDT Temperature - - Respiratory Rate - - Oxygen Saturation 100% 11/24/2017 6:16 PM CDT Inhaled Oxygen Concentration - - Weight - - Height - - Body Mass Index - - documented in this encounter Progress Notes Xochitl Hackett L.P.N. - 11/24/2017 6:15 PM CDT Client here wishing to have pacemaker removed again. notes that he is, indeed,sleeping all the time. Client states he's still falling frequently. Hurt knee the other day due to fall. Eats food andimmediately falls asleep. Staggering. Cintia Cobb M.D. - 11/24/2017 6:15 PM CDT CHIEF COMPLAINT / REASON FOR VISIT Ed Cuauhtemoc Luna is a 57 y.o. male who presents for evaluation of Fall the other day due to pacemaker (Wants pacemaker removed - hurt knee. ). HISTORY OF PRESENT ILLNESS Ed presents today for follow-up. He underwent EMG testing which showed severe length-dependent neuropathy. Unfortunately he missed his Neurology appointment but would be interested in following up on this. He reports another fall with a right knee injury about 1 week ago. It swelled a little. He will get a sharp poking pain at times and the knee feels like it will give out on him. It occasionally clicks. He reports that the left arm has feeling back in the 5th finger and is doing well. He has occasionalaching in the elbow as well as some aching through the left shoulder which he thinks is related to the pacemaker. He continues to desire that the pacemaker be removed. He is angry that they did not follow his living will. We discussed that I reviewed the case with 1 of our cardiologists who felt a pacemaker was necessary and feels that removal of the pacemaker lead to significant cardiac issues. Patient does noteoccasional chest pain which happens at various times and lasts for different amounts of time. He denies any associated nausea or shortness of breath. Breathing has been good. He also continues to follow asleep after eating which did not start until the pacemaker was placed. He does not think this is related to dumping syndrome. He has had checked his blood sugar with these episodes and states it was 92. Brief Review of Systems: A brief review [...] mouth 3 (three) times a day. ??? PEDIATRIC MULTIVITAMIN NO.76 ([employer]ES COMPLETE ORAL) Take 1 tablet by mouth 2 (two) times a day. Allergies Allergen Reactions ??? Ciprofloxacin Other (see comments) ??? Haemophilus Influenzae GI intolerance Diarrhea PHYSICAL EXAM BP 139/84 (BP Location: Left arm, Patient Position: Sitting, Cuff Size: Large) Pulse 69 SpO2 100% There is no height or weight on file to calculate BMI. General: Alert and oriented. No acute distress. Neck: Supple. No lymphadenopathy. No carotid bruits. Cardiovascular exam: Regular rate and rhythm. Normal S1 and S2. No murmurs, rubs, or gallops. Lungs: Clear to auscultation bilaterally. Extremities: No pedal edema. Patient has tenderness to palpation over the medial right knee. There is no laxity with varus, valgus, or Luis Alberto's test. No joint effusion. He does have mild clicking withMcMurray's test but no big clunks or significant pain. ASSESSMENT/PLAN: #1 Diabetes Mellitus Type 2 With Diabetic Neuropathy (HCC) We will reach out to Neurology to see if they can either give us some guidance or reschedule patient. We will continue with current dose of gabapentin. A1c will be completed in 3 months. #2 Pacemaker Cardiac Status Post Reviewed my discussion with Cardiology. Stated that I think it would be hard to find somebody who would remove the pacemaker and if it was removed, I do not think any of these changes would reverse themselves. Also discussed that he would likely either need to have the pacemaker replaced or ultimatelyhis life would end. 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 #3 Pain Knee Right He does not have a significant joint effusion which is reassuring. Recommended that he continue withicing and wearing his knee sleeve. If it is not improving, we could pursue further imaging. #4 Gastric Bypass Status Post Patient has maintained his weight loss. He is concerned regarding sleepiness after eating. I did review this with the hims coder who thought dumping syndrome might be a possibility but patient thinks that is highly unlikely. documented in this encounter Plan of Treatment Not on filedocumented as of this encounter Visit Diagnoses Diagnosis Diabetes Mellitus Type 2 With Diabetic N europathy (HCC) - Primary Pacemaker Cardiac Status Post Pain Knee Right Gastric Bypass Status Post documented in this encounter Additional Health Concerns Assessment Noted Time PHQ-9 Depression Total Score: 18 02/14/2013 9:53 AM CD T documented as of this encounter Care Teams Paper Reel Operator Relationship Specialty Start Date End Date Cintia Cobb M.D. PCP - General 02/19/17 02/20/[address] [place] [phone] documented as of this encounter
--- OUTSIDE RECORDS SUMMARY | 2022-07-29 10:50 | XMS_ITS | Encounter Summary ---
:1960 Author Organization [facility] Address [address] [place] [address] Care Team Providers Name Role Phone Cintia Cobb M.D. Primary Care Provider [phone] Encounter Details Date Type Department Care Team Description 07/18/2017 Abstract Department of Ophthalmology in Provider, Historical Natalie Gillette n [address] [place] [address] Social History Tobacco Use Types Packs/Day Years Used Date Smoking Tobacco: Never Sex Assigned at Date Recorded Not on file documented as of this encounter Plan of Treatment Not on filedocumented as of this encounter Visit Diagnoses Not on filedocumented in this encounter Additional Health Concerns Assessment Noted Time PHQ-9 Depression Total Score: 18 02/14/2013 9:53 AM CD T documented as of this encounter Care Teams Roller Inspector And Mender Relationship Specialty Start Date End Date Cintia Cobb M.D. PCP - General 02/19/17 02/20/[address] [place] [phone] documented as of this encounter
--- OUTSIDE RECORDS SUMMARY | 2022-07-29 10:50 | XMS_ITS | Encounter Summary ---
:1960 Author Organization [facility] Address [address] [place] [address] Care Team Providers Name Role Phone Cintia Cobb M.D. Primary Care Provider [phone] Reason for Visit Reason Onset Date Comments Radilogy semi-urgent result 12/22/2017 Encounter Details Date Type Department Care Team Description 12/22/2017 Clinical Loki Gallegos Communication Emergency Eugene W III, semi-urgen t result Department M.D. [address] [place] [phone] Social History Tobacco Use Types Packs/Day Years Used Date Smoking Tobacco: Never Smokeless Tobacco: Never Alcohol Use Standard Drinks/Week Comments No 0 (1 standard drink = 0.6 oz pure alcoho l) Sex Assigned at Date Recorded Not on file documented as of this encounter Miscellaneous Notes Telephone Encounter - Selam Harry R.T.(Abby) - 12/22/2017 1:10 PM CDT Please review the radiology report of the Right toes done on 12/21/17. documented in this encounter Plan of Treatment Not on filedocumented as of this encounter Visit Diagnoses Not on filedocumented in this encounter Additional Health Concerns Assessment Noted Time PHQ-9 Depression Total Score: 18 02/14/2013 9:53 AM CD T documented as of this encounter Care Teams Rn Chronic Relationship Specialty Start Date End Date Cintia Cobb M.D. PCP - General 02/19/17 02/20/[id number] [phone] documented as of this encounter
--- OUTSIDE RECORDS SUMMARY | 2022-07-29 10:50 | XMS_ITS | Encounter Summary ---
:1960 Author Organization [facility] Address [address] [place] [address] Care Team Providers Name Role Phone Cintia Cobb M.D. 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); [address] [place], [place] [address]VD [address] [place] [address] Diabetes Mellitus Type 2 (HCC); [place], [place] Infecti on Toe Skin [id number] (Wo rk) Social History Tobacco Use Types Packs/Day Years Used Date Smoking Tobacco: Never Smokeless Tobacco: Never Alcohol Use Standard Drinks/Week Comments No 0 (1 standard drink = 0.6 oz pure alcoho l) Sex Assigned at Date Recorded Not on file documented as of this encounter Last Filed Vital Signs Vital Sign Reading Time Taken Comments Blood Pressure 126/78 12/21/2017 4:52 PM CDT Pulse 64 12/21/2017 4:52 PM CDT Temperature 36.7 ??C (98.1 ??F) 12/21/2017 4:52 PM CDT Respiratory Rate 18 12/21/2017 4:52 PM CDT Oxygen Saturation 99% 12/21/2017 4:52 PM CDT Inhaled Oxygen Concentration - - Weight 76.8 kg (169 lb 5 oz) 12/21/2017 4:53 PM CDT Height - - Body Mass Index 22.93 06/02/2017 6:04 PM CDT documented in this encounter Discharge Instructions AttachmentsThe following attachments cannot be sent through Care Everywhere.Bone and Joint Infections Adult (Kyrgyz)documented in this encounter Medications at Time of [...] ED Notes Eugene Bunch III, M.D. - 12/21/2017 5:49 PM CDT Images from the original note were not included. SUBJECTIVE CHIEF COMPLAINT/REASON FOR VISIT Foot Pain (Rt foot) HISTORY OF PRESENT ILLNESS Increasing sore on the right great toe dorsum and on the tips of the first, second, and third. No pain due to neuropathy. Other Onset quality: Unable to specify Timing: Constant Progression: Worsening Chronicity: Recurrent Relieved by: Nothing Worsened by: Nothing Ineffective treatments: Bandaide Associated symptoms: fatigue Associated symptoms: no chest pain, no diarrhea, no fever, no headaches, no nausea, no shortness of breath, no sore throat and no vomiting Fatigue: Severity: Moderate Duration: 3 months Timing: Constant Progression: Unchanged Risk factors: Diabetes, REVIEW OF SYSTEMS Constitutional: Positive for fatigue. Negative for chills and fever. HENT: Negative for sore throat. Eyes: Negative for pain and visual disturbance. Respiratory: Negative for shortness of breath. Cardiovascular: Negative for chest pain, palpitations and leg swelling. Gastrointestinal: Negative for constipation, diarrhea, nausea and vomiting. Endocrine: Negative for cold intolerance, heat intolerance, polydipsia, polyphagia and polyuria. Genitourinary: Negative for dysuria and frequency. Musculoskeletal: Negative for joint swelling and extremity pain. Skin: Negative. Allergic/Immunologic: Negative for environmental allergies and food allergies. Neurological: Positive for numbness. Negative for headaches. Hematological: Does not bruise/bleed easily. Psychiatric/Behavioral: Negative for agitation and depression. OBJECTIVE Initial Vitals [12/21/17 1652] Temperature Pulse Rate Heart Rate Resp Rate Blood Pressure SpO2 36.7 ??C 64 -- 18 126/78 99 % Pain Score -- PHYSICAL EXAMINATION Constitutional: He appears well-developed and well-nourished. HENT: Head: Normocephalic and atraumatic. Mouth/Throat: Mucous membranes are moist. Eyes: Conjunctivae and EOM are normal. Pupils are equal, round, and reactive to light. Neck: Normal range of motion. Neck supple. No JVD present. Cardiovascular: Normal rate, regular rhythm, S1 normal, S2 normal and normal heart sounds. Exam reveals no decreased pulses. Pulses are strong and palpable. Pulses: Dorsalis pedis pulses are 0 on the right side, and 0 on the left side. Posterior tibial pulses are 1+ on the right side, and 1+ on the left side. Capillary refill: takes less than 3 seconds, Right lower extremity 3-5 , Left lower extremity 3-5 Edema:Right pedal: 2+ and pitting edema. Right pretibial: 2+ and pitting edema. Pulmonary/Chest: Effort normal and breath sounds normal. There is normal air entry. Abdominal: Soft. Bowel sounds are normal. He exhibits no distension. There is no tenderness. Musculoskeletal: Normal range of motion. Feet: Neurological: He is alert and oriented to person, place, and time. He has normal reflexes. Skin: Ulceration (multiple toes right) noted. Psychiatric: He has a normal mood and affect. His behavior is normal. Judgment and thought content normal. Differential diagnosis: diabetic foot ulcer, osteomyelitis, neuropathy, soft tissue infection. Peripheral vascular disease, Heart failure. IMPRESSION: Soft tissue defect along the distal plantar aspect of the right great toe with adjacent demineralization and cortical irregularity of the distal phalanx tuft, highly concerning for osteomyelitis. Additionally, there is linear lucency through the distal phalanx shaft, indeterminate for associated nondisplaced fracture (best appreciated on lateral view). Otherwise, multifocal degenerative change. Vascular calcifications. ASSESSMENT/PLAN Impression and Plan I have explained to the patient that he osteomyelitis. I explained the ramifications of not being admitted to the hospital for IV antibiotics. The potential complications of going home were discussed in detail as well. The patient refused to be admitted. I prescribed clindamycin for the patient 300 mg po TID for 10 days. I have recommended he follow up with his ADMINISTRATOR within the next few days. Cultures were taken and further care will depend on clinical course. Reviewed and summarized previous medical records including: Lab results, Radiology images/report andDocumentation from previous visits. I personally reviewed the lab result(s) and my interpretation is: Abnormal Radiology results: Reviewed the radiology report. Radiology interpretation: Abnormal ED Course as of Dec 24 1519 Wed Dec 23, 2017 1510 Bacterial Culture, Aerobic: (!) STAPHYLOCOCCUS COAGULASE-NEGATIVE 1+ Final Diagnoses: as of Dec 24 1519 Osteomyelitis Toe Acute Right (HCC) Diabetes Mellitus Type 2 With Diabetic Neuropathy (HCC) Diabetes Mellitus Type 2 (HCC) Infection Toe Skin Eugene Bunch III, M.D. 12/23/17 1655 Lesli Sotomayor R.N. - 12/21/2017 4:53 PM CDT Pt comes in c/o of RT foot/ankle swollen. Pt states has been going on a month but last night after shoveling it got worse. Pt has small ulcer to top and bottom of big toe. Lesli Sotomayor R.N. 12/21/17 1657 documented in this encounter Plan of Treatment Not on filedocumented as of this encounter Procedures Procedure Name Priority Date/Time Associated Comments Diagnosis BACTERIAL CULTURE, STAT 12/21/2017 6:20 Result s for this AEROBIC + SUSC PM CDT procedure are in the results section. DX TOES RIGHT 3 RAD - Semiurgent 12/21/2017 5:38 Resul ts for this VIEWS (Fast; most ED PM CDT procedure are in patients; some the results inpatients) section. NT-PRO B-TYPE STAT 12/21/2017 5:20 Results for this NATRIURETIC PEPTIDE PM CDT procedur e are in (BNP), S the results section. BASIC METABOLIC STAT 12/21/2017 5:20 Results f or this PANEL, S/P PM CDT procedure are i n the results section. CBC WITH STAT 12/21/2017 5:19 Results for this DIFFERENTIAL, B PM CDT procedure ar e in the results section. documented in this encounter Results (ABNORMAL) Bacterial Culture, Aerobic + Susc Toe, Right (12/21/2017 6:20 PM CDT) Component Value Ref Test Analysis Performed At [facility] gist Range Method Time Signature Bacterial STAPHYLOCOCCUS COAGULASE-NEGATIVE 2017 [facility] Culture, 1+ 10:13 AM HEALTH Aerobic (A) CDT SYSTEM- [facility] Specimen (Source) Anatomical Collection Method Collection Time Re ceived Time Location / / Volume Laterality Tissue, Superficial 12/21/2017 6:20 12/21 (Toe, Right) PM CDT 10:25 PM CDT Comment: Specimen Source Site: Tissue, S uperficial Eugene Bunch III, M.D. LAB MICROBIOLOGY - [facility] ORDERABLES Performing Organization Address City/State/ZIP Code Phon e Number [facility]- [address] [place] [address] [facility] DX Toes Right 3 Views (12/21/2017 5:38 PM CDT) Anatomical Region Laterality Modality Lower Extremity, Toes, Musculoskeletal RST LOS Right Digital Radiography Specimen (Source) Anatomical Collection Method Collection Time Re ceived Time Location / / Volume Laterality 12/22/2017 7:01 AM CDT Impressions 12/22/2017 7:05 AM CDT IMPRESSION: Soft tissue defect along the distal plantar aspect of the right great toe with adjacent demineralization and cortical irregularity of the distal phalanx tuft, highly concerning for oste omyelitis. Additionally, there is linear lucency through the distal phalanx shaft , indeterminate for associated nondisplaced fracture (best appreciated on lateral view). Otherwise, multifocal degenerative change. Vascular calcificat ions. Narrative 12/22/2017 7:05 AM CDT EXAM: DX TOES RIGHT 3 VIEWS Procedure Note Alexey Owens M.D. - 12/22/2017Formatt ing of this note might be different from the original. EXAM: DX TOES RIGHT 3 VIEWS IMPRESSION: Soft tissue defect along the distal plantar aspect of the right great toe with adjacent demineralization and cortical irregularity of the distal phalanx tuft, highly concerning for oste omyelitis. Additionally, there is linear lucency through the distal phalanx shaft , indeterminate for associated nondisplaced fracture (best appreciated on lateral view). Otherwise, multifocal degenerative change. Vascular calcificat ions. Eugene Bunch III, M.D. G DIAGNOSTIC IMAGING PROCEDURES (ABNORMAL) NT-Pro B-Type Natriuretic Peptide (BNP) (12/21/2017 5:20 PM CDT) P athologist Signature NT-Pro BNP 490 (H) <=76 pg/mL 12/21/2017 [facility] 6:42 PM CDT [facility]- [facility] Comment: REVISED RESULTS NT-proBNP values less than 300 pg/mL hav e a 99% negative predictive value for excluding acute congestive heart jenae lure. A cutoff of 1200 pg/mL for patients with an eGFR<60 yields a diagno stic sensitivity and specificity of 89% and 72% for acute congestive heart f ailure. ??A diagnostic NT-proBNP cutoff of 900 pg/mL has been suggested i n adults 50-75 years of age in the absence of renal failure. Biotin has been identified by the [facility] as a potential interfering substance. ??Higher concentr ations of biotin may be found in multivitamins, hair/nail supple ments, and workout supplements. ??If the result does not [facility] clinical observations, repeat testing after patient refrains fr om the use of supplements for at least 12 hours. ----PREVIOUSLY REPORTED ---- 496 NT-proBNP values less than 300 pg/mL have a 99% negative predictive lee ue for excluding acute congestive heart jenae lure. A cutoff of 1200 pg/mL for patients with an eGFR<60 yields a diagno stic sensitivity and specificity of 89% and 72% for acute congestive heart f ailure. ??A diagnostic NT-proBNP cutoff of 900 pg/mL has been suggested i n adults 50-75 years of age in the absence of renal failure. Biotin has bee n identified by the [facility] as a potential interfering substance. ??Higher concentr ations of biotin may be found in multivitamins, hair/nail supple ments, and workout supplements. ??If the result does not [facility] clinical observations, repeat testing after patient refrains fr om the use of supplements for at least 12 hours. Abnormal_High (Re ported 12/21/2017 18:08) Specimen Anatomical Collection Method Collection Time Receive d Time (Source) Location / / Volume Laterality Blood (Blood, 12/21/2017 5:20 PM 12/22/19 18 5:21 Venous) CDT PM CDT Eugene Bunch III, M.D. LAB BLOOD ADD-ON Performing Organization Address City/State/[facility] Phon e Number [facility]- [address] [place] [address] LAB (ABNORMAL) BMP (Basic Metabolic Panel) (12/21/2017 5:20 PM CDT) P athologist Signature Potassium, P 4.2 3.6 - 5.2 12/21/2017 [facility] mmol/L 5:41 PM [facility] Sodium, P 137 135 - 145 12/21/2017 [facility] mmol/L 5:41 PM [facility] Chloride, P 99 98 - 107 12/21/2017 [facility] mmol/L 5:41 PM [facility] Bicarbonate, P 27 22 - 29 12/21/2017 [facility] mmol/L 5:41 PM [facility] Anion Gap, P 11 7 - 15 12/21/2017 [facility] 5:41 PM [facility] BUN (Blood Urea 30 (H) 8 - 24 12/21/2017 [facility] Nitrogen), P mg/dL 5:41 PM [facility] Creatinine 1.08 0.74 - 12/21/2017 [facility] 1.35 mg/dL 5:41 PM [facility] eGFR-Black/Afri 86 >=60 12/21/2017 [facility] can Maldivian mL/min/BSA 5:41 PM [facility] Comment: ----ADDITIONAL INFORMATION---- Estimated GFR calculated using the 2009 CKD_EPI creatinine equation. eGFR Non-Black/ 75 >=60 mL/min/BSA 12/21/2017 5:41 PM [facility] Comment: ----ADDITIONAL INFORMATION---- Estimated GFR calculated using the 2009 CKD_EPI creatinine equation. Calcium, Total, P 8.8 (L) 8.9 - 10.1 mg/dL 12/21/2017 5 :41 PM [facility] Glucose, P 140 70 - 140 mg/dL 12/21/2017 5:41 PM [facility] Specimen Anatomical Collection Method Collection Time Receive d Time (Source) Location / / Volume Laterality Blood (Blood, 12/21/2017 5:20 PM 12/22/19 18 5:21 Venous) CDT PM CDT Eugene Bunch III, M.D. LAB BLOOD ADD-ON Performing Organization Address City/[facility] Phon e Number [facility]- [id number] [place] [address] LAB (ABNORMAL) CBC with Differential (12/21/2017 5:19 PM CDT) [facility] Method Time Signature Hemoglobin 9.5 (L) 13.2 - 12/21/2017 [facility] 16.6 g/dL 5:26 PM [facility] Hematocrit 29.5 (L) 38.3 - 12/21/2017 [facility] 48.6 % 5:26 PM [facility] Erythrocytes 3.08 (L) 4.35 - 12/21/2017 [facility] 5.65 5:[address] [facility]ALTH x10(12)/L [facility] MCV 95.8 78.2 - 12/21/2017 [facility] 97.9 fL 5:26 PM [facility] RBC Distrib Width 13.8 11.8 - 12/21/2017 [facility] 14.5 % 5:26 PM [facility] Platelet Count 202 135 - 317 12/21/2017 [facility] x10(9)/L 5:26 PM CDT [facility] LAB Leukocytes 7.3 3.4 - 9.6 12/21/2017 [facility] x10(9)/L 5:26 PM CDT [facility] LAB Neutrophils 4.72 1.56 - 12/21/2017 [facility] 6.45 5:26 PM CDT HEALTH x10(9)/L [facility] Lymphocytes 1.62 0.95 - 12/21/2017 [facility] 3.07 5:26 PM CDT HEALTH x10(9)/L [facility] Monocytes 0.68 0.26 - 12/21/2017 [facility] 0.81 5:26 PM CDT HEALTH x10(9)/L [facility] Eosinophils 0.29 0.03 - 12/21/2017 [facility] 0.48 5:26 PM CDT HEALTH x10(9)/L [facility] Basophils 0.03 0.01 - 12/21/2017 [facility] 0.08 5:26 PM CDT [facility] x10(9)/L [facility] Specimen Anatomical Collection Method Collection Time Receive d Time (Source) Location / / Volume Laterality Blood (Blood, 12/21/2017 5:19 PM 12/22/19 18 5:21 Venous) CDT PM CDT Eugene Bunch III, M.D. 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 Scheduled Medication Order 12/19/2017 12/20/2017 12/21/2017 clindamycin capsule 300 mg (for_CLEOCIN) (COMPLETED) 1843 (Given - Provider: Lesli Sotomayor R.N.) 300 mg, oral, Once, 12/21/17 at 1843, For 1 dose, Indications: Bone and/or Joint Infection documented in this encounter Additional Health Concerns Assessment Noted Time PHQ-9 Depression Total Score: 18 02/14/2013 9:53 AM CD T documented as of this encounter Care Teams Riffler Tender Relationship Specialty Start Date End Date Cintia Cobb M.D. PCP - General 02/19/17 02/20/[address] [place] [phone] documented as of this encounter
--- OUTSIDE RECORDS SUMMARY | 2022-07-29 10:50 | XMS_ITS | Encounter Summary ---
:1960 Author Organization [facility] Address [address] [place] [address] Care Team Providers Name Role Phone Cintia Cobb M.D. Primary Care Provider [phone] Reason for Visit Reason Comments Right knee pain Encounter Details Date Type Department Care Team Description 09/01/2017 Office Visit Department of [facility] Knee Initial Right (Primary Dx); Medicine, Jose Daniel Piper M.D. Neuropathy [facility], [address] [address] [place], [place] [phone] (W ork) [address] [phone] Social History Tobacco Use Types Packs/Day Years Used Date Smoking Tobacco: Never Smokeless Tobacco: Never Sex Assigned at Date Recorded Not on file documented as of this encounter Last Filed Vital Signs Vital Sign Reading Time Taken Comments Blood Pressure 146/83 09/01/2017 4:25 PM SOCIAL WORK CASE MANAGER Pulse 62 09/01/2017 4:25 PM SOCIAL WORK CASE MANAGER Temperature 36.6 ??C (97.9 ??F) 09/01/2017 4:25 PM SOCIAL WORK CASE MANAGER Respiratory Rate - - Oxygen Saturation 100% 09/01/2017 4:25 PM SOCIAL WORK CASE MANAGER Inhaled Oxygen Concentration - - Weight - - Height - - Body Mass Index - - documented in this encounter Patient Instructions Patient InstructionsCintia Cobb M.D. - 09/01/2017 4:45 PM SOCIAL WORK CASE MANAGER Future Appointments Date Time Provider Department Center 10/13/2017 2:00 PM Eli Lopez D.O. [facility] AL WORK CASE MANAGER documented in this encounter Progress Notes Xochitl Hackett L.P.N. - 09/01/2017 4:45 PM CST Client also had a fall off his trailer due to his pacemaker. States he had no dizziness or warning prior. Did hurt right knee, split lip and scuffed right hand. AL WORK CASE MANAGER Cintia Cobb M.D. - 09/01/2017 4:45 PM CST CHIEF COMPLAINT / REASON FOR VISIT Ed Cuauhtemoc Luna is a 57 y.o. male who presents for evaluation of Right knee pain. HISTORY OF PRESENT ILLNESS Ed reports a fall off of his truck which injured his right knee and scraped his lip and right palm. He has had swelling, mild bruising, and feels like it might give out on him at times. It can hurt in any position but does not lock. He has not taken any meds. His left shoulder is recovering well from surgery and he has feeling in the 5th finger again. He continues to have burning in his legs. Brief Review of Systems: A brief review [...] Influenzae GI intolerance Diarrhea PHYSICAL EXAM BP 146/83 (BP Location: Left arm, Patient Position: Sitting, Cuff Size: Regular) Pulse 62 Temp 36.6 ??C (Temporal) SpO2 100% There is no height or weight on file to calculate BMI. General: Alert and oriented. No acute distress. Extremities: He has slight bluish discoloration of the anterior right knee. There is minimal effusion of the right knee. He has tenderness along the medial and lateral right joint line. No laxity with varus, valgus or Luis Alberto's tests. Negative Jose's test on right. DIAGNOSTICS: EXAM: DX KNEE RIGHT 4+ VIEWS ? IMPRESSION: Diffuse bone demineralization. No acute fracture or traumatic malalignment. Mild diffuse degenerative change. Patellar spurs. Small knee effusion versus synovitis. Mild patellar soft tissue edema. Benign soft tissue calcifications. Vascular calcifications. ASSESSMENT/PLAN: #1 Injury Knee Initial Right XR obtained showing minimal arthritis, but no acute abnormality. No obvious ligament laxity. Most likely a bruise. Recommended symptomatic treatment and if not improving, will pursue further. #2 Neuropathy Peripheral Recommended referral to neurology and EMG which patient was willing to pursue. AL WORK CASE MANAGER documented in this encounter Plan of Treatment Not on filedocumented as of this encounter Visit Diagnoses Diagnosis Injury Knee Initial Right - Primary Neuropathy Peripheral documented in this encounter Additional Health Concerns Assessment Noted Time PHQ-9 Depression Total Score: 18 02/14/2013 9:53 AM CD T documented as of this encounter Care Teams Private Branch Exchange Service Adviser Relationship Specialty Start Date End Date Cintia Cobb M.D. PCP - General 02/19/17 02/20/[id number] [phone] documented as of this encounter
--- OUTSIDE RECORDS SUMMARY | 2022-07-29 10:50 | XMS_ITS | Encounter Summary ---
:1960 Author Organization [facility] Address [address] [place] [address] Care Team Providers Name Role Phone Cintia Cobb M.D. Primary Care Provider Reason for Referral Outpatient (Routine) - Closed Specialty Diagnoses / Procedures Referred By Contact Refer red To Contact Neurology Diagnoses Neuropathy Peripheral Cintia Cobb [facility] Piper M.D. [address] [place] [phone] Referral ID Status Reason Start Date Expiration Date Visits V isits Requested Authorized [id number] Closed Specialty 12/24/2017 2018 1 1 Services Required Encounter Details Date Type Department Care Team Description 12/24/2017 Orders Only Department of [facility] Fei Cobb Peripheral Medicine, Jose Daniel Piper M.D. (Primary Dx) [facility], [address] [address] [place], [place] [phone] (W ork) [address] [phone] Social History Tobacco Use Types Packs/Day Years Used Date Smoking Tobacco: Never Smokeless Tobacco: Never Alcohol Use Standard Drinks/Week Comments No 0 (1 standard drink = 0.6 oz pure alcoho l) Sex Assigned at Date Recorded Not on file documented as of this encounter Plan of Treatment Scheduled Referrals Name Type Priority Associated Diagnoses Order S [facility] Neurology - General Outpatient Referral Routine Neuropathy E xpected: consult (clinic) Peripheral 12/24/2017 (Approximate), Expires: 12/24/2020 documented as of this encounter Visit Diagnoses Diagnosis Neuropathy Peripheral - Primary documented in this encounter Additional Health Concerns Assessment Noted Time PHQ-9 Depression Total Score: 18 02/14/2013 9:53 AM CD T documented as of this encounter Care Teams Audit Analyst Relationship Specialty Start Date End Date Cintia Cobb M.D. PCP - General 02/19/17 02/20/[address] [place] [phone] documented as of this encounter
--- OUTSIDE RECORDS SUMMARY | 2022-07-29 10:50 | XMS_ITS | Encounter Summary ---
:1960 Author Organization [facility] Address [address] [place] [address] Care Team Providers Name Role Phone Cintia Cobb M.D. Primary Care Provider [phone] Reason for Visit Reason Comments Communication Encounter Details Date Type Department Care Team Description 09/01/2017 Clinical Communication Department of [facility] Medicine, Cintia Jean Baptiste, judith Piper M.D. [address] [phone] Social History Tobacco Use Types Packs/Day Years [...] documented as of this encounter Care Teams Dish Machine Operator Relationship Specialty Start Date End Date Cintia Cobb M.D. PCP - General 02/19/17 02/20/[address] [place] [phone] documented as of this encounter
--- OUTSIDE RECORDS SUMMARY | 2022-07-29 10:50 | XMS_ITS | Encounter Summary ---
:1960 Author Organization [facility] Address [address] [place] [address] Care Team Providers Name Role Phone Cintia Cobb M.D. Primary Care Provider [phone] Encounter Details Date Type Department Care Team Description 02/25/2018 Infusion Department of Infusion Duncan Copeland Wound Toe Without Damage To Nail Open Subsequent (Primary Dx); Therapy in Jose Daniel Piper M.D. Diabetes Mellitus Type 2 Peripheral Neur opathy (HCC); [address] Diabetes Mellitus Type 2 (HCC) [address] [place] [phone] [phone] Social History Tobacco Use Types Packs/Day Years Used Date Smoking Tobacco: Never Smokeless Tobacco: Never Alcohol Use Standard Drinks/Week Comments No 0 (1 standard drink = 0.6 oz pure alcoho l) Sex Assigned at Date Recorded Not on file documented as of this encounter Progress Notes Sruthi Campos R.N. - 02/25/2018 5:00 PM CDT Ed comes in tonight for recheck of right toe wounds. The wounds on the plantar and dorsal surface ofthe right great toe have healed. Calloused skin present on the plantar wound, but the skin is intact. There is a new area of concern at the distal plantar area of the 3rd right toe. The skin is macerated and boggy with a small open area measuring 0.3cm x 0.2cm x 0.3cm. Some skin able to be removedwith aggressive cleansing. The wound edges are not attached and a sterile cotton swab can be inserted 1cm down the side of the toe at 7pm. There are no s/s of infection: no erythema, drainage, pain, red streaking, or foul odor coming from the wound, although his foot does have a generally bad odor. The tip of the toe seems to be macerated to where the skin has detached, possibly having been a callousbefore that has been exposed to too much moisture and now has . As a dressing, a small piece of Aquacel Ag strip was cut and placed over the wound and end of the toe, covered with a strip of Aquacel foam that was cut to fit just over the toe, and secured with paper tape. I requested they cleanse the wound daily with mild soap and water, allow to dry, and change the dressing every day. They have a f/u appointment with Dr. Song this coming Thursday and they'll hopefully see some improvement by then, but I suspect the skin may need to be cut off/removed to fully expose the wound bed. I will not be on shift this day so Dr. Song could request another wound nurse if treatment shouldneed to be adjusted. I did recommend he thoroughly cleanse his feet daily and allow them to fully dry, letting them get as much air as possible where he's not in socks and/or shoes. He could also use some foot powder in his work boots to help absorb some of this excess moisture, which he agrees to do.Ed will f/u with Dr. Song on Thursday and further return visits can be determined based on her recommendation. documented in this encounter Plan of Treatment Not on filedocumented as of this encounter Visit Diagnoses Diagnosis Wound Toe Without Damage To Nail Open Kiran bsequent - Primary Diabetes Mellitus Type 2 Peripheral Neur opathy (HCC) Diabetes Mellitus Type 2 (HCC) documented in this encounter Additional Health Concerns Assessment Noted Time PHQ-9 Depression Total Score: 18 02/14/2013 9:53 AM CD T documented as of this encounter Care Teams Rn Prior Authorization Relationship Specialty Start Date End Date Cintia Cobb M.D. PCP - General 02/19/17 02/20/[address] [phone] documented as of this encounter
--- OUTSIDE RECORDS SUMMARY | 2022-07-29 10:50 | XMS_ITS | Encounter Summary ---
:1960 Author Organization [facility] Address [address] [place] [address] Care Team Providers Name Role Phone Cintia Cobb M.D. Primary Care Provider [phone] Encounter Details Date Type Department Care Team Description 12/08/2017 Orders Only Department of [facility] Feliz [facility] Leg Right MedicineJose Daniel M.D. (Primary Dx) [facility], [address] [address] [place], [place] [phone] (W ork) [address] [phone] Social History Tobacco Use Types Packs/Day Years Used Date Smoking Tobacco: Never Smokeless Tobacco: Never Sex Assigned at Date Recorded Not on file documented as of this encounter Plan of Treatment Not on filedocumented as of this encounter Visit Diagnoses Diagnosis Swelling Leg Right - Primary documented in this encounter Additional Health Concerns Assessment Noted Time PHQ-9 Depression Total Score: 18 02/14/2013 9:53 AM CD T documented as of this encounter Care Teams Front Desk Attendant Relationship Specialty Start Date End Date Cintia Cobb M.D. PCP - General 02/19/17 02/20/[address] [place] [phone] documented as of this encounter
--- OUTSIDE RECORDS SUMMARY | 2022-07-29 10:50 | XMS_ITS | Encounter Summary ---
:1960 Author Organization [facility] Address [address] [place] [address] Care Team Providers Name Role Phone Cintia Cobb M.D. Primary Care Provider [phone] Encounter Details Date Type Department Care Team Description 01/08/2018 Orders Only Department of Infusion Sruthi Campos Wou nd Toe Without Therapy in [place] Damage To Nail Open [place] [address] Subsequent (Primary [address] [place] [address] Blvd Dx) [place] [phone] Social History Tobacco Use Types Packs/Day Years [...] documented as of this encounter Care Teams Conveyor Installer Relationship Specialty Start Date End Date Cintia Cobb M.D. PCP - General 02/19/17 02/20/[address] [place], [place] [address] [address] documented as of this encounter
--- OUTSIDE RECORDS SUMMARY | 2022-07-29 10:50 | XMS_ITS | Encounter Summary ---
:[address] [facility] Address [address] [place] [address] Care Team Providers Name Role Phone Cintia Cobb M.D. Primary Care Provider [phone] Encounter Details Date Type Department Care Team Description 01/05/2018 Ancillary Procedure Department of Family Medicine Social [...] Associated Diagnosis Comme nts FAMILY MEDICINE Routine 01/05/2018 7:35 PM Result s for this IMAGE EXAM CDT procedure are i n the results section. documented in this encounter Results FAMILY MEDICINE IMAGE EXAM (01/05/2018 7:35 PM CDT) Specimen (Source) Anatomical Collection Method Collection Time Re ceived Time Location / / Volume Laterality 01/05/2018 7:35 PM CDT Narrative [facility] - 01/05/2018 7:37 PM CDT This order has been created [...] documented as of this encounter Care Teams Director Of State Relationship Specialty Start Date End Date Cintia Cobb M.D. PCP - General 02/19/17 02/20/[address] [phone] documented as of this encounter
--- OUTSIDE RECORDS SUMMARY | 2022-07-29 10:50 | XMS_ITS | Encounter Summary ---
:1960 Author Organization [facility] Address [address] [place] [address] Care Team Providers Name Role Phone Cintia Cobb M.D. Primary Care Provider [phone] Reason for Visit Reason Comments Communication Encounter Details Date Type Department Care Team Description 08/13/2017 Clinical Communication Department of [facility] Laura Mejia Communication Medicine, Jose Daniel Motta R.N. [address] [address] [place], [place] [phone] (Work) [phone] Social History Tobacco Use Types Packs/Day Years Used Date Smoking Tobacco: Never Smokeless Tobacco: Never Sex Assigned at Date Recorded Not on file documented as of this encounter Miscellaneous Notes Telephone Encounter - Laura Mejia RPiliN. - 08/13/2017 2:35 PM CST RN contacted pt to follow-up regarding his request to have his seen. Options for future appointment's were given to him, and he states he would rather leave that up to his . Please see note inwife's chart regarding contact attempt. While on the phone, pt wanted me to let his doctor know thathe fell yesterday, and banged up his right knee, and has a slight facial abrasion. Pt states this was caused by his pacemaker. Pt aware that PCP is out of the office for a few days, and he states he just wanted her to be aware. Pt very pleasant during entire phone conversation. PING AND RECEIVING CLERK documented in this encounter Plan of Treatment Not on filedocumented as of this encounter Visit Diagnoses Not on filedocumented in this encounter Additional Health Concerns Assessment Noted Time PHQ-9 Depression Total Score: 18 02/14/2013 9:53 AM CD T documented as of this encounter Care Teams Field Investigator Relationship Specialty Start Date End Date Cintia Cobb M.D. PCP - General 02/19/17 02/20/[address] [place] [phone] documented as of this encounter
--- OUTSIDE RECORDS SUMMARY | 2022-07-29 10:50 | XMS_ITS | Encounter Summary ---
:1960 Author Organization [facility] Address [address] [place] [address] Care Team Providers Name Role Phone Cintia Cobb M.D. Primary Care Provider [phone] Encounter Details Date Type Department Care Team Description 09/29/2017 Orders Only Department of [facility] Angélica Cobb Medicine, Jose Daniel Piper M.D. Clinic, in [address] [address] [place], [place] [phone] (W ork) [address] [phone] Social History Tobacco Use Types Packs/Day Years [...] documented as of this encounter Care Teams Dough Mixing Machine Operator Relationship Specialty Start Date End Date Cintia Cobb M.D. PCP - General 02/19/17 02/20/[address] [place] [phone] documented as of this encounter
--- OUTSIDE RECORDS SUMMARY | 2022-07-29 10:50 | XMS_ITS | Encounter Summary ---
:1960 Author Organization [facility] Address [address] [place] [address] Care Team Providers Name Role Phone Cintia Cobb M.D. Primary Care Provider [phone] Reason for Visit Reason Onset Date Comments pacemaker issues 07/20/2017 almost fell Encounter Details Date Type Department Care Team Description 07/20/2017 Clinical Department of Duncan pacemaker issu es Communication Family Medicine, Cintia Copeland (almost fell) Jose Daniel Piper M.D. [facility], in [address] [address] [place], [place] [phone] (Work) [phone] Social History Tobacco Use Types Packs/Day Years Used Date Smoking Tobacco: Never Sex Assigned at Date Recorded Not on file documented as of this encounter Miscellaneous Notes Telephone Encounter - FeiDanitza Александр - 07/20/2017 9:22 AM CST The patient is calling to let Dr. Song that over the weekend when he went to the bathroom he almost fell backwards in to the tub several times. Patient states that he know this is from his pacemaker. Patient said that he has 2 up coming surgeries on 08-12 and 09-03 after he has recovered from these surgeries he wants the anaya doctor from [place] to remove his pacemaker and do it for free as she did not follow his living will. Patient expressed a lot of anger at the provider who put in his pacemaker. Please call patient to discuss. ING OFFICER documented in this encounter Plan of Treatment Not on filedocumented as of this encounter Visit Diagnoses Not on filedocumented in this encounter Additional Health Concerns Assessment Noted Time PHQ-9 Depression Total Score: 18 02/14/2013 9:53 AM CD T documented as of this encounter Care Teams Head Neck Surgeon Relationship Specialty Start Date End Date Cintia Cobb M.D. PCP - General 02/19/17 02/20/[address] [place] [phone] documented as of this encounter
--- OUTSIDE RECORDS SUMMARY | 2022-07-29 10:50 | XMS_ITS | Encounter Summary ---
:1960 Author Organization [facility] Address [address] [place] [address] Care Team Providers Name Role Phone Cintia Cobb M.D. Primary Care Provider [phone] Encounter Details Date Type Department Care Team Description 09/01/2017 Hospital Encounter Department of [place] Initial Radiology in Cintia Jean Baptiste [place], [place] Keely Piper [address] [place] [phone] Social History Tobacco Use Types Packs/Day [...] under the skin every 30 (thirty) days. ferrous sulfate 325 mg Take 1 tablet by 0 015 11/24/2017 (65 mg iron) tablet mouth 2 (two) times a day. furosemide (LASIX) 40 mg Take 1 tablet (40 90 tablet 3 07/0906/01/2018 tablet mg total) by mouth daily. gabapentin Take 2 tablets 540 tablet 3 08/04/2017 03/11/2018 (for_NEURONTIN) 600 mg (1,200 mg total) by tablet mouth 3 (three) times a day. documented as of this encounter Plan of Treatment Not on filedocumented as of this encounter Procedures Procedure Name Priority Date/Time Associated Comments Diagnosis DX KNEE RIGHT 4+ RAD - Routine 09/01/2017 5:43 Injury Knee Results for this VIEWS (most inpatients PM SUPERVISOR ESTIMATOR AND DRAFTER Initial Right procedure are in and all the results outpatients) section. documented in this encounter Results DX Knee Right 4+ Views (09/01/2017 5:43 PM SUPERVISOR ESTIMATOR AND DRAFTER) Anatomical Region Laterality Modality Lower Extremity, Knee Right Digital Radiograph y Specimen (Source) Anatomical Collection Method Collection Time Re ceived Time Location / / Volume Laterality 09/02/2017 8:32 AM SUPERVISOR ESTIMATOR AND DRAFTER Impressions 09/02/2017 8:35 AM SUPERVISOR ESTIMATOR AND DRAFTER IMPRESSION: Diffuse bone demineralization. No acute fracture or traumatic malalignment. Mild diffuse degenerative change. Patellar spurs. Small knee effusion versus synovitis. Mild patellar soft tissue edema. Benign soft tissue calcifications. Vascular calcifications. Narrative 09/02/2017 8:35 AM SUPERVISOR ESTIMATOR AND DRAFTER EXAM: DX KNEE RIGHT 4+ VIEWS Procedure Note Alexey Owens M.D. - 09/02/2017Formatt ing of this note might be different from the original. EXAM: DX KNEE RIGHT 4+ VIEWS IMPRESSION: Diffuse bone demineralizatio n. No acute fracture or traumatic malalignment. Mild diffuse degenerative change. Patellar spurs. Small knee effusion versus synovitis. Mild patellar soft tissue edema. Benign soft tissue calcifications. Vascular calcifications. Cintia Copeland M.D. IMG DIAGNOSTIC IMAGING PROCEDURES documented in this encounter Visit Diagnoses Diagnosis Injury Knee Initial Right documented in this encounter Additional Health Concerns Assessment Noted Time PHQ-9 Depression Total Score: 18 02/14/2013 9:53 AM CD T documented as of this encounter Care Teams Copying Machine Mechanic Relationship Specialty Start Date End Date Cintia Cobb M.D. PCP - General 02/19/17 02/20/[address] [place] [phone] documented as of this encounter
--- OUTSIDE RECORDS SUMMARY | 2022-07-29 10:50 | XMS_ITS | Encounter Summary ---
:1960 Author Organization [facility] Address [address] [place] [address] Care Team Providers Name Role Phone Cintia Cobb M.D. Primary Care Provider [phone] Encounter Details Date Type Department Care Team Description 07/07/2017 Orders Only Department of [facility] Tigist Cobb reoperative Exam; Medicine, Wedron Cintia Piper M.D. [facility], in [address] [place] [address] [place], [place] [phone] (W ork) [address] [phone] Social History Tobacco Use Types Packs/Day Years Used Date Smoking Tobacco: Never Sex Assigned at Date Recorded Not on file documented as of this encounter Plan of Treatment Not on filedocumented as of this encounter Visit Diagnoses Diagnosis Preoperative Exam Anemia documented in this encounter Additional Health Concerns Assessment Noted Time PHQ-9 Depression Total Score: 18 02/14/2013 9:53 AM CD T documented as of this encounter Care Teams Usability Strategist Relationship Specialty Start Date End Date Cintia Cobb M.D. PCP - General 02/19/17 02/20/[address] [place] [phone] documented as of this encounter
--- OUTSIDE RECORDS SUMMARY | 2022-07-29 10:50 | XMS_ITS | Encounter Summary ---
:1960 Author Organization [facility] Address [address] [place] [address] Care Team Providers Name Role Phone Cintia Cobb M.D. Primary Care Provider [phone] Encounter Details Date Type Department Care Team Description 08/07/2017 Orders Only Department of [facility] Angélica Cobb Medicine, Jose Daniel Piper M.D. Clinic, in [address] [address] [place], [place] [phone] (W ork) [address] [phone] Social History Tobacco Use Types Packs/Day Years [...] of this encounter Care Teams Director Of Hemophilia Relationship Specialty Start Date End Date Cintia Cobb M.D. PCP - General 02/19/17 02/20/[address] [place] [phone] documented as of this encounter
--- OUTSIDE RECORDS SUMMARY | 2022-07-29 10:50 | XMS_ITS | Encounter Summary ---
:1960 Author Organization [facility] Address [address] [place] [address] Care Team Providers Name Role Phone Cintia Cobb M.D. Primary Care Provider Reason for Referral Outpatient (Routine) - Closed Specialty Diagnoses / Procedures Referred By Contact Refer red To Contact Family Medicine Cintia Cobb DREW Piper M.D. [address] [place] [phone] Referral ID Status Reason Start Date Expiration Date Visits Requ ested Visits Authorized [id number] Closed 12/22/2017 06/20/2018 1 1 Encounter Details Date Type Department Care Team Description 12/22/2017 Orders Only Department of [facility] Terri Cobb iabetes Mellitus Type Medicine, Jose Daniel Piper M.D. 2 (HCC) (Primary Dx) [facility], [address] [address] [place], [place] [phone] (W ork) [address] [phone] Social History Tobacco Use Types Packs/Day Years Used Date Smoking Tobacco: Never Smokeless Tobacco: Never Alcohol Use Standard Drinks/Week Comments No 0 (1 standard drink = 0.6 oz pure alcoho l) Sex Assigned at Date Recorded Not on file documented as of this encounter Plan of Treatment Scheduled Referrals Name Type Priority Associated Diagnoses Order [facility] Outpatient Referral Routine Expec ti: office visit 01/05/2018, (clinic) Expires: 12/22/2020 documented as of this encounter Results Lipid Panel (03/02/2018 7:37 PM CDT) athologist Signature Cholesterol, 139 mg/dL 03/02/2018 [facility] Total 8:26 PM CDT [facility] Comment: ----REFERENCE VALUE---- Desirable: < 200 Borderline high: 200 - 239 High: > or = 240 Triglycerides 40 mg/dL 03/02/2018 8:26 PM CDT [facility] Comment: ----REFERENCE VALUE---- Normal: <150 Borderline high: 150-199 High: 200-499 Very high: > or =500 Cholesterol, HDL, S 56 >=40 mg/dL 03/02/2018 8:26 PM CDT [facility] Calculated LDL 75 mg/dL 03/02/2018 8:26 PM CDT [facility] Comment: ----REFERENCE VALUE---- Desirable: <100 Above Desirable: 100-129 Borderline high: 130-159 High: 160-189 Very high: > or =190 Cholesterol, Non-HDL, 83 mg/dL 03/02/2018 8:26 PM CDT [facility] Comment: ----REFERENCE VALUE---- Desirable: <130 Above Desirable: 130-159 Borderline high: 160-189 High: 190-219 Very high: > or =220 Specimen Anatomical Collection Method Collection Time Receive d Time (Source) Location / / Volume Laterality Blood (Blood, 03/02/2018 7:37 PM 03/02/20 18 7:44 Venous) CDT PM CDT Cintia Copeland M.D. LAB BLOOD ADD-ON Performing Organization Address City/State/ZIP Code Phon e Number [facility] [id number] [place] [address], [place] [address] [facility] Hemoglobin A1c (03/02/2018 7:37 PM CDT) P athologist Signature Hemoglobin A1c, 5.6 4.2 - 5.6 03/02/2018 [facility] B % 8:03 PM CDT [facility] Specimen Anatomical Collection Method Collection Time Receive d Time (Source) Location / / Volume Laterality Blood (Blood, 03/02/2018 7:37 PM 03/02/20 18 7:44 Venous) CDT PM CDT Cintia Copeland M.D. LAB BLOOD ADD-ON Performing Organization Address City/State/ZIP Code Phon e Number [facility]- [address] [place] [id number] [facility] documented in this encounter Visit Diagnoses Diagnosis Diabetes Mellitus Type 2 (HCC) - Primary documented in this encounter Additional Health Concerns Assessment Noted Time PHQ-9 Depression Total Score: 18 02/14/2013 9:53 AM CD T documented as of this encounter Care Teams Voice Intercept Technician Relationship Specialty Start Date End Date Cintia Cobb M.D. PCP - General 02/19/17 02/20/[address] [place] [phone] documented as of this encounter
--- OUTSIDE RECORDS SUMMARY | 2022-07-29 10:50 | XMS_ITS | Encounter Summary ---
:1960 Author Organization [facility] Address [address] [place] [address] Care Team Providers Name Role Phone Cintia Cobb M.D. Primary Care Provider [phone] Encounter Details Date Type Department Care Team Description 08/28/2017 Hospital Encounter HX NO MAPPING Social History Tobacco Use Types Packs/Day Years [...] documented as of this encounter Care Teams Asphalt Screed Operator Relationship Specialty Start Date End Date Cintia Cobb M.D. PCP - General 02/19/17 02/20/[address] [place] [phone] documented as of this encounter
--- OUTSIDE RECORDS SUMMARY | 2022-07-29 10:50 | XMS_ITS | Encounter Summary ---
:1960 Author Organization [facility] Address [address] [place] [address] Care Team Providers Name Role Phone Cintia Cobb M.D. Primary Care Provider [phone] Encounter Details Date Type Department Care Team Description 02/21/2018 Documentation Department of Infusion Gus Campos R.N. Therapy in [address] [address] [place] [address] Social History Tobacco Use Types Packs/Day Years Used Date Smoking Tobacco: Never Smokeless Tobacco: Never Alcohol Use Standard Drinks/Week Comments No 0 (1 standard drink = 0.6 oz pure alcoho l) Sex Assigned at Date Recorded Not on file documented as of this encounter Progress Notes Sruthi Campos RKevin. - 02/21/2018 4:24 PM CDT Ed returned on 01/30/18, for recheck of right toe wounds. The right great toe plantar wound at the base of the toe measures 0.2cm x 0.4cm x 0.2cm. It has calloused skin growing around and close to the edges. The wound was aggressively cleansed and calloused skin somewhat flaked off, revealing a healthy, pink wound bed. No discharge present although Ed's wifereports there is typically a small amount of drainage on the removed dressings. There is also a bit of maceration to the skin of the toe, underneath the bandage they have been applying. There is no foul odor, red streaking, warmth, erythema, or purulent drainage noted. We will switch from Aquacel Ag strip to Fibracol, covered with a simple bandaid to try and reduce the moisture underneath the bandage. I requested they change the dressing every other day, ensuring they thoroughly cleanse the wound and allow to fully dry before reapplying bandage. Once the wound has minimal drainage, we could try switching to Coloplast Triad, but we'll discuss when he returns. All other wounds have resolved/healed, including the right great toe dorsal wound, so no further dressings or MediHoney are needed. I recommended he continue to lotion his lower legs and highly recommend he see podiatry to evaluate need for offloading and nail care. His toenails continue to be thick and dark colored, with his great toe naildetached around the edges and only attached at the cuticle/base. He states he has a very busy and unp redictable schedule but will consider a podiatry appointment. He is unsure when he will return for recheck due to this schedule. I advised he could see one of the other wound nurses as well if he is not able to coordinate coming in when I'm on shift. He will call with any questions or concerns, otherwise will try and come back in 3 weeks when I'm working the weekend again. Sruthi Campos R.N. - 02/21/2018 4:24 PM CDT Ed called today and spoke with our [facility], stating he is not able to come in today for a recheck but would like to come in this week. The SERVICE CREW SUPERVISOR stated he could come in and see another WCC on Thursday or Thursday, or I would be back in on Thursday or . Ed stated he would like to come in on Thursday or , but if he's not able to make that work then he will come the first part of the week. documented in this encounter Plan of Treatment Not on filedocumented as of this encounter Visit Diagnoses Diagnosis Diabetes Mellitus Type 2 Peripheral Neur opathy (HCC) Wound Toe Without Damage To Nail Open Kiran bsequent Diabetes Mellitus Type 2 (HCC) documented in this encounter Additional Health Concerns Assessment Noted Time PHQ-9 Depression Total Score: 18 02/14/2013 9:53 AM CD T documented as of this encounter Care Teams Deputy Sheriff Chief Relationship Specialty Start Date End Date Cintia Cobb M.D. PCP - General 02/19/17 02/20/[id number] [address] documented as of this encounter
--- OUTSIDE RECORDS SUMMARY | 2022-07-29 10:50 | XMS_ITS | Encounter Summary ---
:1960 Author Organization [facility] Address [address] [place] [address] Care Team Providers Name Role Phone Cintia Cobb M.D. Primary Care Provider Reason for Visit Reason Comments Neuro Consult Neuropathy Outpatient (Routine) - Closed Specialty Diagnoses / Procedures Referred By Contact Refer red To Contact Neurology Diagnoses Neuropathy Peripheral Cintia Cobb [facility] DREW Piper M.D. [address] [address] Referral ID Status Reason Start Date Expiration Date Visits V isits Requested Authorized [id number] Closed Specialty 12/24/2017 2018 1 1 Services Required Encounter Details Date Type Department Care Team Description 01/23/2018 Comprehensive Visit Department of Cintia Aguirre M.D. [id number] [address] Neuropathy Neurology in German Garnica M.D. [address] [place] [address] Peripheral ([place], [place]) [address] [address] Social History Tobacco Use Types Packs/Day Years Used Date Smoking Tobacco: Never Smokeless Tobacco: Never Alcohol Use Standard Drinks/Week Comments No 0 (1 standard drink = 0.6 oz pure alcoho l) Sex Assigned at Date Recorded Not on file documented as of this encounter Last Filed Vital Signs Vital Sign Reading Time Taken Comments Blood Pressure 141/82 01/23/2018 9:04 AM CDT Pulse 72 01/23/2018 9:04 AM CDT Temperature - - Respiratory Rate - - Oxygen Saturation 100% 01/23/2018 9:04 AM CDT Inhaled Oxygen Concentration - - Weight - - Height - - Body Mass Index - - documented in this encounter Progress Notes Xochitl Hackett L.PPiliN. - 01/23/2018 9:00 AM CDT Client here for neuropathy consultation. Not taking his iron supplement that was prescribed. Some days worse than others. This morning, walking in here, legs felt heavy. Taking gabapentin. Monthly B12 shots and oral supplements as well. documented in this encounter Consult Notes German Kwong M.D. - 01/23/2018 9:00 AM CDT SUBJECTIVE CHIEF COMPLAINT / REASON FOR VISIT Ed Cuauhtemoc Luna is a 57 y.o. male who presents for evaluation of Neuro Consult Neuropathy. HISTORY OF PRESENT ILLNESS Report his symptoms within five days after his pacemaker placement on January 19, 2017. Symptoms startedon January 24, 2017. He describes like symptoms as burning pain, feeling of swelling, feeling heavy, andintermittent tingling. Does have some numbness of the toes especially the right great toe. He has difficulty with gait and has to use a cane now. He denies any weakness. The symptoms were abrupt in onset and have been stable to slightly worse over time and overall did not appear to be progressive in nature. He has been on gabapentin at a fairly high dose of 3600 mg per day fo this, which has not controlled his pain. He does report that he takes the gabapentin twice per day as it is easier to remember to take. It is spell it he has had a gastric bypass in 2014. He lost significant amount of weight and no longer has diabetes mellitus. The following portions of the patient's history were reviewed and updated as appropriate: allergies,current medications, family history, medical history, social history, surgical history and problem list. REVIEW OF SYSTEMS All other systems reviewed and are negative. OBJECTIVE PHYSICAL EXAM Neurological: I performed a limited neurologic exam today. He has full strength in bilateral upper extremities. Inexamination of the lower extremities there is some mild weakness of toe extension and moderate weakness of toe flexion. Remainder lower extremity muscles were with normal strength. There is no apparentatrophy. He has loss of pinprick and vibration sensation at the toes bilaterally. He has preserved joint position sense. On Romberg testing there is some moderate sway. His gait appears fairly normal. ASSESSMENT / PLAN #1 Neuropathy Peripheral comes to the Neurology Clinic for evaluation of neuropathy. He has an unusual history given that the neuropathy started fairly abruptly after his pacemaker placement. This really possible that he had a postsurgical neuropathy but this is usually associated with more weakness and he has today. The pattern of his neuropathy is most consistent with diabetic peripheral neuropathy. Only other potential causes could think for his gait difficulties and neuropathy would be copper deficiency after gastric bypass. This is not been checked in the past and I have ordered this. Recommendations: 1. I have ordered a copper and ceruloplasmin to be done today. This to rule out copper deficiency asa potential cause of some of his symptoms. 2. With regard to symptomatic treatment of his neuropathic pain in his legs I would suggest transitioning from gabapentin to Lyrica. This would allow better absorption of the medication is gabapentin has poor by availability specially at the doses he is at. One could certainly immediately transition from gabapentin to Lyrica. If this were to happen have him start Lyrica 150 mg twice per day with potential further titration to as high as 600 mg a day which could be split two or 3 times per day. Alternative options would include Duloxetine which could be started at 20 mg and titrate by 20 mg every week to dose between 612 100 mg per day. Other options thereafter would include Effexor, lamotrigine, or topiramate. PATIENT EDUCATION Ready to learn, no apparent learning barriers were identified. Discussed diagnosis and treatment plan; patient expressed understanding of the content. Spent a total of 55 minutes with the patient with more than 50% of this times spent in counseling and/or coordination of care. documented in this encounter Plan of Treatment Not on filedocumented as of this encounter Procedures Procedure Name Priority Date/Time Associated Diagnosis Comme nts COPPER, S Routine 01/23/2018 10:19 AM Neuropathy Results for this CDT Peripheral procedure are i n the results section. CERULOPLASMIN, S Routine 01/23/2018 10:19 AM Neuropathy Resu lts for this CDT Peripheral procedure are i n the results section. documented in this encounter Results Ceruloplasmin (01/23/2018 10:19 AM CDT) athologist Signature Ceruloplasmin, 25.0 19.0 - 01/25/2018 [facility] S 31.0 mg/dL 11:30 AM CDT [facility] - [facility] Specimen Anatomical Collection Method Collection Time Receive d Time (Source) Location / / Volume Laterality Blood (Blood, 01/23/2018 10:01/25/2018 8:03 Venous) AM CDT AM CDT German Kwong M.D. LAB BLOOD ADD-ON Performing Organization Address City/[facility]/ZIP Code Phon e Number [facility] [address] [id number] [address] [facility] Copper (01/23/2018 10:19 AM CDT) athologist Signature Copper, S 1.09 0.75 - 1.45 01/25/2018 [facility] mcg/mL 1:22 PM CDT [facility] Comment: ----ADDITIONAL INFORMATION---- This test was developed and its performa nce characteristics determined by [facility] in a manner consistent with CLIA requirements. This test has not been cleared or approved by the [place] and Drug Administration. Specimen Anatomical Collection Method Collection Time Receive d Time (Source) Location / / Volume Laterality Blood (Blood, 01/23/2018 10:01/25/2018 7:04 Venous) AM CDT AM CDT German Kwong M.D. LAB BLOOD NON ADD-ON Performing Organization Address City/State/ZIP Code Phon e Number [facility] [address] [address] [facility] documented in this encounter Visit Diagnoses Diagnosis Neuropathy Peripheral - Primary documented in this encounter Additional Health Concerns Assessment Noted Time PHQ-9 Depression Total Score: 18 02/14/2013 9:53 AM CD T documented as of this encounter Care Teams Truck Jumper Relationship Specialty Start Date End Date Cintia Cobb M.D. PCP - General 02/19/17 02/20/[address] [address] documented as of this encounter
--- OUTSIDE RECORDS SUMMARY | 2022-07-29 10:50 | XMS_ITS | Encounter Summary ---
:1960 Author Organization [facility] Address [address] [place] [address] Care Team Providers Name Role Phone Cintia Cobb M.D. Primary Care Provider Reason for Visit Reason Comments Follow-up Outpatient (Routine) - Closed Specialty Diagnoses / Procedures Referred By Contact Refer red To Contact Family Medicine Cintia Cobb DREW Piper M.D. [address] [place] [address] [place] [address] Referral ID Status Reason Start Date Expiration Date Visits Requ ested Visits Authorized [id number] Closed 12/22/2017 06/20/2018 1 1 Encounter Details Date Type Department Care Team Description 03/02/2018 Office Visit Department of [facility] Terri Cobb Mellitus Type 2 Peripheral Neuropathy (HCC) (Primary Dx); Merlyn Cabello M.D. Anemia Iron Deficiency; [facility], in [address] [place] [address] Hyperten mikey Essential Primary; [facility] Gastric Bypass Status Post; [facility] [place] Pacemaker Cardiac Status Pos t; [address] [place] [phone] Diabetes Mellitus Type 2 (HCC) MERLYN KESSLER [place] [phone] [address] (Work) [phone] Social History Tobacco Use Types Packs/Day Years Used Date Smoking Tobacco: Never Smokeless Tobacco: Never Alcohol Use Standard Drinks/Week Comments No 0 (1 standard drink = 0.6 oz pure alcoho l) Sex Assigned at Date Recorded Not on file documented as of this encounter Last Filed Vital Signs Vital Sign Reading Time Taken Comments Blood Pressure 141/88 03/02/2018 6:19 PM CDT Pulse 63 03/02/2018 6:19 PM CDT Temperature - - Respiratory Rate - - Oxygen Saturation 100% 03/02/2018 6:19 PM CDT Inhaled Oxygen Concentration - - Weight - - Height - - Body Mass Index - - documented in this encounter Progress Notes Xochitl Hackett L.P.N. - 03/02/2018 6:30 PM CDT Client states that he sent email yesterday of what he wants to discuss. Why does she keep ordering me these iron tablets??? Cintia Cobb M.D. - 03/02/2018 6:30 PM CDT CHIEF COMPLAINT / REASON FOR VISIT Ed Cuauhtemoc Luna is a 57 y.o. male who presents for evaluation of Follow-up. HISTORY OF PRESENT ILLNESS Ed reports persistent aching and burning in his feet which feel like they weigh a million pounds. His feet burn all night despite elevating them. He is off balance when he 1st gets up and uses a cane. He reports continued sensation to his feet. He intermittently sees the wound care nurse due to sores on his toes. There was a callus to the tip of the 3rd toe that peeled off. His 1st toe has fully healed. He has gained 20 lb without any change to his diet. He does not think he has any edema. He thinks that he gets enough walking at work and does not have a set exercise routine. He reports a constant dull aching to his left anterior chest that does not change with activity. It is their 90% of the time. He has never had a stress test in the past and states he does not want one. He still falls asleep after eating and can be difficult to wake up. Brief Review of Systems: A brief review [...] mouth 2 (two) times a day. ??? pregabalin (LYRICA) 150 mg capsule Take 1 capsule (150 mg total) by mouth 2 (two) times a day. Allergies Allergen Reactions ??? Ciprofloxacin Other (see comments) ??? Haemophilus Influenzae GI intolerance Diarrhea PHYSICAL EXAM BP 141/88 (BP Location: Left arm, Patient Position: Sitting, Cuff Size: Regular) Pulse 63 SpO2 100% There is no height or weight on file to calculate BMI. General: Alert and oriented. No acute distress. Neck: Supple. No lymphadenopathy. No carotid bruits. Cardiovascular exam: Regular rate and rhythm. Normal S1 and S2. No murmurs, rubs, or gallops. Lungs: Clear to auscultation bilaterally. Extremities: No pedal edema. On the tip of the right 3rd toe, there is a callus some of which we removed manually. There is no suspicious opening. DIAGNOSTICS: Results for orders placed or performed in visit on 03/02/18 Hemoglobin A1c Result Value Ref Range Hemoglobin A1c, B 5.6 4.2 - 5.6 % Lipid Panel Result Value Ref Range Cholesterol, Total, S 139 mg/dL Triglycerides, S 40 mg/dL Cholesterol, HDL, S 56 >=40 mg/dL Calculated LDL 75 mg/dL Non HDL Cholesterol 83 mg/dL Hemoglobin Result Value Ref Range Hemoglobin 10.6 (L) 13.2 - 16.6 g/dL Ferritin Result Value Ref Range Ferritin, S 44 30 - 400 mcg/L ASSESSMENT/PLAN: #1 Diabetes Mellitus Type 2 Peripheral Neuropathy (HCC) A1c has gone up but is still acceptable. I encouraged patient to check his blood sugars 1-2 hours after eating to see if they are getting too high. We are also going to change gabapentin to Lyrica 150 mg twice daily per recommendations from Neurology as this will be better absorbed since his gastric bypass surgery. #2 Anemia Iron Deficiency Hemoglobin has improved. Ferritin level is in the normal range. Continue oral iron supplementation and vitamin B12 injections. #3 Hypertension Essential Primary Blood pressure is a little high today but readings at the pharmacy have been acceptable. Continue current medications. #4 Gastric Bypass Status Post I did discuss his falling asleep after aiding with Endocrinology. They felt that this was not dumping syndrome and recommended checking blood sugar 1 to 2 hours after eating to see if instead his bloodsugar was getting high. #5 Pacemaker Cardiac Status Post Patient continues to feel the most of these unusual symptoms are related to the pacemaker. He is having left-sided chest pain but declines any workup. documented in this encounter Plan of Treatment Not on filedocumented as of this encounter Procedures Procedure Name Priority Date/Time Associated Diagnosis Comme nts LIPID PANEL, S Routine 03/02/2018 7:37 PM Diabetes Mellitus Re sults for this CDT Type 2 (HCC) procedure are i n the results section. HEMOGLOBIN, B Routine 03/02/2018 7:37 PM Anemia Iron Results for this CDT Deficiency procedure are i n the results section. HEMOGLOBIN A1C, B Routine 03/02/2018 7:37 PM Diabetes Mellitus Results for this CDT Type 2 (HCC) procedure are i n the results section. FERRITIN, S Routine 03/02/2018 7:37 PM Anemia Iron Results f or this CDT Deficiency procedure are i n the results section. documented in this encounter Results Ferritin (03/02/2018 7:37 PM CDT) P athologist Signature Ferritin, S 44 30 - 400 03/03/2018 [facility] mcg/L 1:22 PM CDT [facility] Comment: Biotin has been identified by the [facility] as a potential interfering substance. ??Higher concentr ations of biotin may be found in multivitamins, hair/nail supple ments, and workout supplements. ??If the result does not ma [facility] clinical observations, repeat testing after patient refrains fr om the use of supplements for at least 12 hours. Specimen Anatomical Collection Method Collection Time Receive d Time (Source) Location / / Volume Laterality Blood (Blood, 03/02/2018 7:37 PM 03/03/20 18 Venous) CDT 12:50 PM CDT Cintia Copeland M.D. LAB BLOOD ADD-ON Performing Organization Address City/State/ZIP Code Phon e Number [facility] [address] [place] [address] [facility] (ABNORMAL) Hemoglobin (03/02/2018 7:37 PM CDT) athologist Signature Hemoglobin 10.6 (L) 13.2 - 16.6 03/02/2018 [facility] g/dL 8:02 PM CDT [facility] Specimen Anatomical Collection Method Collection Time Receive d Time (Source) Location / / Volume Laterality Blood (Blood, 03/02/2018 7:37 PM 03/02/20 18 7:44 Venous) CDT PM CDT Cintia Copeland M.D. LAB BLOOD ADD-ON Performing Organization Address City/State/ZIP Code Phon e Number [facility] [address] [place] [address] [place] [address] [facility] Lipid Panel (03/02/2018 7:37 PM CDT) athologist Signature Cholesterol, 139 mg/dL 03/02/2018 [facility] Total 8:26 PM CDT [facility] Comment: ----REFERENCE VALUE---- Desirable: < 200 Borderline high: 200 - 239 High: > or = 240 Triglycerides 40 mg/dL 03/02/2018 8:26 PM CDT [facility] Comment: ----REFERENCE VALUE---- Normal: <150 Borderline high: 150-199 High: 200-499 Very high: > or =500 Cholesterol, HDL, S 56 >=40 mg/dL 03/02/2018 8:26 PM CDT [facility] Calculated LDL 75 mg/dL 03/02/2018 8:26 PM CDT [facility] Comment: ----REFERENCE VALUE---- Desirable: <100 Above Desirable: 100-129 Borderline high: 130-159 High: 160-189 Very high: > or =190 Cholesterol, Non-HDL, 83 mg/dL 03/02/2018 8:26 PM CDT [facility] Comment: ----REFERENCE VALUE---- Desirable: <130 Above Desirable: 130-159 Borderline high: 160-189 High: 190-219 Very high: > or =220 Specimen Anatomical Collection Method Collection Time Receive d Time (Source) Location / / Volume Laterality Blood (Blood, 03/02/2018 7:37 PM 03/02/20 18 7:44 Venous) CDT PM CDT Cintia Copeland M.D. LAB BLOOD ADD-ON Performing Organization Address City/[facility]/ZIP Code Phon e Number [address] [address] [facility] Hemoglobin A1c (03/02/2018 7:37 PM CDT) P athologist Signature Hemoglobin A1c, 5.6 4.2 - 5.6 03/02/2018 [facility] B % 8:03 PM CDT [facility] Specimen Anatomical Collection Method Collection Time Receive d Time (Source) Location / / Volume Laterality Blood (Blood, 03/02/2018 7:37 PM 03/02/20 18 7:44 Venous) CDT PM CDT Cintia Copeland M.D. LAB BLOOD ADD-ON Performing Organization Address City/[facility]/ZIP Code Phon e Number [address] [address] [facility] documented in this encounter Visit Diagnoses Diagnosis Diabetes Mellitus Type 2 Peripheral Neur opathy (HCC) - Primary Anemia Iron Deficiency Hypertension Essential Primary Gastric Bypass Status Post Pacemaker Cardiac Status Post Diabetes Mellitus Type 2 (HCC) documented in this encounter Additional Health Concerns Assessment Noted Time PHQ-9 Depression Total Score: 18 02/14/2013 9:53 AM CD T documented as of this encounter Care Teams Plugger Relationship Specialty Start Date End Date Cintia Cobb M.D. PCP - General 02/19/17 02/20/[address] [place] [phone] documented as of this encounter
--- OUTSIDE RECORDS SUMMARY | 2022-07-29 10:50 | XMS_ITS | Encounter Summary ---
:1960 Author Organization [facility] Address [address] [place] [address] Care Team Providers Name Role Phone Cintia Cobb M.D. Primary Care Provider [phone] Reason for Visit Reason Comments Right great toe osteomyelitis Encounter Details Date Type Department Care Team Description 01/05/2018 Office Visit Department of [facility] Terri Cobb Mellitus Type 2 Ulcer Foot (HCC) (Primary Dx); Medicine, Jose Daniel Piper M.D. Diabetes Mellitus Type 2 Peripheral Neur opathy (HCC); [facility], [place] [address] Gastric Bypass Status Post [address] [address] [place], [place] [phone] (W ork) [id number] [phone] Social History Tobacco Use Types Packs/Day Years Used Date Smoking Tobacco: Never Smokeless Tobacco: Never Alcohol Use Standard Drinks/Week Comments No 0 (1 standard drink = 0.6 oz pure alcoho l) Sex Assigned at Date Recorded Not on file documented as of this encounter Last Filed Vital Signs Vital Sign Reading Time Taken Comments Blood Pressure 129/85 01/05/2018 6:42 PM CDT Pulse 84 01/05/2018 6:42 PM CDT Temperature - - Respiratory Rate - - Oxygen Saturation 97% 01/05/2018 6:42 PM CDT Inhaled Oxygen Concentration - - Weight - - Height - - Body Mass Index - - documented in this encounter Progress Notes Xochitl Hackett L.P.N. - 01/05/2018 6:45 PM CDT Client here for ED follow up diagnosing him with osteomyelitis of the right great toe. Finished Clindamycin as directed and toe is feeling much better. Cintia Cobb M.D. - 01/05/2018 6:45 PM CDT CHIEF COMPLAINT / REASON FOR VISIT Ed Cuauhtemoc Luna is a 57 y.o. male who presents for evaluation of Right great toe osteomyelitis. HISTORY OF PRESENT ILLNESS Ed had a few weeks of right leg swelling which ultimately prompted a visit to the emergency department on December 21. He was diagnosed with cellulitis and suspected osteomyelitis of his right great toedistal phalanx. Admission was advised but patient declined and was therefore placed on clindamycin. He has finished his antibiotics and reports leg swelling has significantly improved and the redness has resolved. He still has 2 wounds to the right toe that his has been cleaning with peroxide, soaking, and keeping covered. He noted some constipation with clindamycin despite being on 2 stool softeners. Patient reports no feeling in his feet. He is not checking his blood sugars. He does check hisblood pressure. He notes weight gain despite not eating much and is troubled by this. He continues to get sleepy after eating. Brief Review of Systems: A brief review [...] Influenzae GI intolerance Diarrhea PHYSICAL EXAM BP 129/85 (BP Location: Left arm, Patient Position: Sitting, Cuff Size: Large) Pulse 84 SpO2 97%There is no height or weight on file to calculate BMI. General: Alert and oriented. No acute distress. Extremities: No significant edema to either leg. On the right great toe over the tip of the toe, there is a 12 mm x 5 mm ulceration with surrounding callus. There is maceration to the surrounding tissue, but no erythema. Over the IP joint of the same toe, there is a 4 mm x 5 mm open ulcer with maceration to surrounding tissue. The tissue between the wound and the nail feels mushy. Patient also has a callus to the tip of the 3rd toe. ASSESSMENT/PLAN: #1 Diabetes Mellitus Type 2 Ulcer Foot (HCC) Discussed that the wound is 2 moist. We are going to put Aquacel Ag dressing in the base and cover it with a Telfa. He will return for wound care in 4-5 days. Wound care instructions were discussed with . We are going to need to closely monitor his wound for signs nonhealing or recurrent infectiondue to concern of osteomyelitis on the x-ray. #2 Diabetes Mellitus Type 2 Peripheral Neuropathy (HCC) Patient has upcoming appointment with Neurology on January 23 to further discuss any options for treatment of his neuropathy. #3 Gastric Bypass Status Post Discussed that if he eats too few calories, it will be difficult to lose weight. Advised him to write down what he is eating each day and bring to next appointment. Also on review of labs in the emergency department, he is likely developing an iron deficiency anemia. #4 Iron deficiency anemia Patient is advised to start an iron tablet twice daily. documented in this encounter Plan of Treatment Not on filedocumented as of this encounter Visit Diagnoses Diagnosis Diabetes Mellitus Type 2 Ulcer Foot (HCC ) - Primary Diabetes Mellitus Type 2 Peripheral Neur opathy (HCC) Gastric Bypass Status Post documented in this encounter Additional Health Concerns Assessment Noted Time PHQ-9 Depression Total Score: 18 02/14/2013 9:53 AM CD T documented as of this encounter Care Teams Labor Relations Analyst Relationship Specialty Start Date End Date Cintia Cobb M.D. PCP - General 02/19/17 02/20/[id number] [place] [id number] documented as of this encounter
--- OUTSIDE RECORDS SUMMARY | 2022-07-29 10:51 | XMS_ITS | Encounter Summary ---
:1960 Author Organization [facility] Address [address] [place] [address] Care Team Providers Name Role Phone Unavailable Primary Care Provider Unavailable Encounter Details Date Type Department Care Team Description 04/29/2016 Hospital Encounter [facility]X [facility] [place] Kevin Aguirre M.D. [address] [place] [id number] (Wo rk) Social History Tobacco Use Types Packs/Day Years Used Date Smoking Tobacco: Never Assessed Sex Assigned at Date Recorded Not on file documented as of this encounter Last Filed Vital Signs Vital Sign Reading Time Taken Comments Blood Pressure 120/70 04/29/2016 6:33 PM CDT Pulse 42 04/29/2016 6:33 PM CDT Temperature - - Respiratory Rate 16 04/29/2016 6:33 PM CDT Oxygen Saturation - - Inhaled Oxygen Concentration - - Weight - - Height 182 cm (5' 11.65) 04/29/2016 6:33 PM CDT Body Mass Index - - documented in this encounter Medications at Time of Discharge Medication Sig Dispensed Refills Start Date End Date PEDIATRIC MULTIVITAMIN Take 4 tablets by 0 2015 NO.76 ([facility]ONES mouth daily. COMPLETE ORAL) ferrous sulfate 325 mg Take 1 tablet by 0 015 11/24/2017 (65 mg iron) tablet mouth 2 (two) times a day. documented as of this encounter Progress Notes Kevin Cobb M.D. - 04/29/2016 6:23 AM CDT Clinic Full Note CHIEF COMPLAINT/REASON FOR VISIT Follow up. HISTORY OF PRESENT ILLNESS Ed presents today for followup on his medications. Because it has been hard to make it into the doctor, he has not been taking any of his medications with the exception of metoprolol for the past 2 months. He also used a friend's hydrochlorothiazide taking 5 25 mg tablets at a time. His weight has been fluctuating he thinks related to water retention. He had been down to 169 pounds and feels best around 173 to 175. This morning he was 181. He also reports a red rash underneath his abdomen that has been there for at least 1 year but fluctuates in intensity. He has been seen by plastic surgery in [place] to discuss a panniculectomy due to his weight loss. He states that the rash is a little worsetoday and the surgeon requested a picture taken of it. He does use powder on it. Patient's blood sugars have been 80 up to 114. 114 was postprandial. He is mainly eating rabbit food and fruit. For breakfast he will eat cereal and fruit or raisin toast or a muffin. For lunch he will eat rabbit food and fruits and as well as one slice of cheese and 3 ounces of meat. For supper he will have fruits, meat, and potatoes. Rarely he will eat fast food. MEDICATIONS allopurinol 300 mg oral tablet, 300 mg, 1 tab(s), kidney stones, PO, Daily, 1 refills, * amLODIPine 10 mg oral tablet, 5 mg, 0.5 tab(s), high blood pressure, PO, Daily, 1 refills, * calcium (as carbonate) 500 mg oral tablet, chewable, 1,000 mg, 2 tab(s), PO, 2xDay, 3 refills, * Cialis 20 mg oral tablet, 20 mg, 1 tab(s), PO, Daily, PRN, 11 refills, * cyanocobalamin 1000 mcg/mL injectable solution, 1,000 mcg, 1 mL, vitamin B12 deficiency, Subcut., Monthly, 3 refills, * ferrous sulfate 325 mg (65 mg elemental iron) oral tablet, 325 mg, 1 tab(s), PO, 2xDay, 0 refills, * Flintstones Complete oral tablet, chewable, 1 tab(s), Chewed, 2xDay, 1 refills, * Lasix 40 mg oral tablet, 40 mg, 1 tab(s), Leg Swellingocc extra pill depending on weight/swelling, PO, Daily, 0 refills, * Metoprolol Tartrate 25 mg oral tablet, 12.5 mg, 0.5 tab(s), PO, 2xDay, 0 refills PriLOSEC 40 mg oral delayed release capsule, 40 mg, 1 cap(s), PO, Daily, 1 refills, * Senna Plus, 1 tab(s), PO, 2xDay, * simvastatin 40 mg oral tablet, 40 mg, 1 tab(s), high cholesterol, PO, Bedtime, 3 refills, * * indicates non-compliance ALLERGIES Cipro Influenza Virus Vaccine (diarrhea) PAST MEDICAL HISTORY Chronic BPH without urinary obstruction DM II (or NOS), uncontrolled Eczema Erectile dysfunction* Flutter Atrial NOS Flutter Atrial NOS Fracture Closed Radial head Hyperlipidemia Hypertension essential, NOS Kidney stone Morbid Obesity (BMI > 40) (V85.4) Obesity NOS Optic disc cupping Pyelonephritis Tinea cruris. Tinea pedis* Unspecified Adjustment Reaction Urge Incontinence Historical No historical problems PROCEDURES/SURGICAL HISTORY Gastric bypass (11/19/2014), Cystoscopy (12/26/2009), PSA, TOTAL SCREENING (12/26/2009), Discectomy (02/19/1989). SOCIAL HISTORY Date Time: 04/29/2016 18:33 Tobacco: Smoking Status: Never smoker Exposure: Care provider denies smoking in home, Other: never Alcohol: Use: No Recreational Drugs: Use: None Type: No Results Found FAMILY HISTORY Mother ( at 72 year(s)):Positive: Diabetes mellitus; Kidney disease; Myocardial infarction Father:Positive: Congestive heart failure; Hypertension SYSTEMS REVIEW As per HPI. No chest pain, shortness of breath. Occasional leg swelling. VITAL SIGNS T: 36.8 ??C (Core) HR: 42 RR: 16 BP: 120 / 70 SpO2: 100% HT: 182 cm PHYSICAL EXAMINATION General: Alert and oriented. No acute distress. Neck: Supple. No lymphadenopathy. No carotid bruits. Cardiovascular exam: Bradycardia. Normal S1 and S2. No murmurs, rubs, or gallops. Lungs: Clear to auscultation bilaterally. Extremities: 1+ pedal edema. Skin: Patient has moist erythema and superficial skin breakdown in the right groin under his pannus. Pictures were taken and uploaded to [facility]. LAB RESULTS Sodium Lvl: 137.3 05/12/15 Potassium Lvl: 4.4 05/12/15 Chloride: 106 05/12/15 CO2: 23.0 05/12/15 Glucose Lvl: 146 High 04/07/16 Creatinine: 1.36 High 04/29/16 Calcium Lvl: 9.5 04/07/16 BUN: 36 High 05/12/15 EGFR (MDRD): 54 Low 04/29/16 EGFR (MDRD): >60 04/29/16 AGAP: 13 05/12/15 Hgb A1c: 5.6 04/07/16 Cholesterol: 120 04/07/16 Tri 04/07/16 HDL: 56 04/07/16 LDL Calculated: 53 04/07/16 Chol/HDL Ratio: 2 04/07/16 Hgb: 11.4 Low 04/07/16 Hct: 33.7 Low 04/07/16 WBC: 6.4 04/07/16 RBC: 3.53 Low 04/07/16 MCV: 95.5 High 04/07/16 RDW: 13.5 04/07/16 Platelet: 137 Low 04/07/16 Neutro Absolute: 4.17 04/07/16 Lymph Absolute: 1.55 04/07/16 Milam Absolute: 0.55 04/07/16 Eos Absolute: 0.12 04/07/16 Baso Absolute: 0.02 04/07/16 Differential?: Auto 05/12/15 IMPRESSION/REPORT/PLAN 1. DM2 A1c looks great at 5.6. Encouraged patient to continue with healthy diet. I would also like him to check his blood sugars a couple times per month. Ordered: OV Est Pt Level 4 - 71865 - 25 min 2. Bradycardia NOS Heart rate continues in the 40s which is not unusual for patient. With his blood pressure being so good, we are going to stop his metoprolol and have him check his blood pressure and pulse a couple times per week. Ordered: OV Est Pt Level 4 - 38135 - 25 min 3. Hypertension HTN NOS As per #2. Stop metoprolol and monitor. We will call in 1 month for a followup. Ordered: OV Est Pt Level 4 - 62448 - 25 min 4. Insufficiency Renal NOS Creatinine in early April was 1.55. On recheck today it is better. We discussed that taking such high doses of diuretics can certainly cause that to go up. Ordered: OV Est Pt Level 4 - 60515 - 25 min 5. Hyperlipidemia NOS Lipid panel was at goal. He does not need a statin currently. Ordered: OV Est Pt Level 4 - [id number] - 25 min 6. Tinea Groin Perianal Area Pictures were taken of his tinea infection. His plastic surgeon will be updated. He can continue with powder. Ordered: OV Est Pt Level 4 - 16696 - 25 min 7. Retention Fluid We restarted Lasix 40 mg daily as needed for weight gain. Again advised that he should not take really high doses because it affects his kidney function. Ordered: OV Est Pt Level 4 - 27645 - 25 min Orders: furosemide, 40 mg = 1 tab(s), PO, Daily, PRN edema, Leg Swelling, # 90 tab(s), 3 Refill(s), Maintenance, Pharmacy: [id number] Electronically Signed By: KEVIN KILGORE MD On: 04/30/2016 06:30 AM Source: [facility] POWERCHART Document Id: [id number] documented in this encounter Miscellaneous Notes Telephone Encounter - Conversion, Historical Provider Ser - 09/01/2016 1:29 PM CST *Phone Message Document Contains Addenda Addendum by JUDITH PATE LPN on September 02, 2016 08:26:09 [employer] pharmacy changed in chart per request. From: ANUSHA MAURICE To: [facility]; Sent: 09/01/2016 13:29:58 [employer] Subject: *Phone Message Caller is: (X ) Patient ( ) Mother ( ) Father ( ) Spouse ( ) Daughter ( ) Son ( ) Pharmacy ( ) Other: Physician: Kevin Kilgore Patient MRN #: Reason for Call: Switched Pharmacy's Message: Patient called to state that he switched from [facility] to [facility] in [place]. Any question please call [phone]. No voice mail Advice/Action: Source used: ( ) Verbalizes understanding of instructions ( ) Instructed to call back if symptoms worsen or do not resolve ( ) Refused to see provider ( ) Appointment Scheduled ( ) OK to leave message on voice mail ( ) Patient told to expect return call: ( ) today ( ) tomorrow ( ) next work day ( ) Patient's email ( ) Patient told physician out of office, will call upon return call on ( ) ( ) Patient told physician out of office, routed to other physician ( ) Other ( ) Call back telephone number ( ) Call back cell phone number ( ) Source: [facility] Document Id: [id number] Telephone Encounter - Conversion, Historical Provider Ser - 06/10/2016 1:19 PM CDT *Phone Message Document Contains Addenda Addendum by VINEET RAMIREZ LPN on June 12, 2016 13:15:43 CDT no answer today. Addendum by ANGEL NGUYEN on June 11, 2016 16:09:22 CDT Line, once again, busy. Addendum by ANGEL NGUYEN on June 11, 2016 14:14:10 CDT Home phone busy, will attempt later as this is the phone number that client requested we call back to. Addendum by KEVIN KILGORE MD on June 10, 2016 18:23:07 CDT From: KEVIN KILGORE MD To: [facility]; Sent: 06/10/2016 18:23:07 CDT Subject: RE: *Phone Message Please let patient know that I sent in a script for 40mg bid, but he MUST come back in 2-3 weeks fora blood draw to make sure that his kidneys are doing okay. Too much Lasix can cause his kidneys to fail. I also want him to see the heart doctor and I am placing this order. Thanks, Kevin Addendum by ANOOP QUEVEDO LPN on June 10, 2016 14:16:35 CDT From: ANOOP QUEVEDO LPN ([facility]) To: KEVIN KILGORE MD; Sent: 06/10/2016 14:16:35 CDT Subject: FW: *Phone Message Please advise as our medication list shows he is taking Lasix 40mg Prn. Thanks Anoop From: MARTI CHOI I ([facility]) To: [facility]; Sent: 06/10/2016 13:19:55 CDT Subject: *Phone Message Caller is: (x ) Patient ( ) Mother ( ) Father ( ) Spouse ( ) Daughter ( ) Son ( ) Pharmacy ( ) Other: Physician: Kevin Song MD Patient MRN #: Reason for Call: RX Message: Patient called and requested his water pill RX be changed from 30 to 60 as he takes 2/day. Pharmacy is [facility] in [place]. Patient is hard to reach by phone, but number is [phone]. Advice/Action: Source used: ( ) Verbalizes understanding of instructions ( ) Instructed to call back if symptoms worsen or do not resolve ( ) Refused to see provider ( ) Appointment Scheduled ( ) OK to leave message on voice mail ( ) Patient told to expect return call: ( ) today ( ) tomorrow ( ) next work day ( ) Patient's email ( ) Patient told physician out of office, will call upon return call on ( ) ( ) Patient told physician out of office, routed to other physician ( ) Other ( ) Call back telephone number ( ) Call back cell phone number ( ) Source: [facility] POWERCHART Document Id: [id number] Miscellaneous - Kevin Cobb M.D. - 04/30/2016 9:21 AM CDT Results Notification Document Contains Addenda Addendum by ANGEL NGUYEN on April 30, 2016 11:17:11 CDT Vineet Ramirez LPN, already addressed with patient. From: KEVIN KILGORE MD To: [facility]; Sent: 04/30/2016 09:21:50 CDT Show up: 04/30/2016 09:22:00 CDT Subject: Results Notification Please let patient know that creatinine is better at 1.36. Normal is under 1.30. Thanks, Kevin Results: Date Result Name Ind Value Ref Range 04/29/2016 19:33 Creatinine (H) 1.36 mg/dL (0.60 - 1.30) 04/29/2016 19:33 EGFR (MDRD) (L) 54 mL/min/1.73m2 (>=60 - ) 04/29/2016 19:33 EGFR (MDRD) >60 mL/min/1.73m2 (>=60 - ) Source: [facility] POWERCHART Document Id: [id number] Electronically signed by Conversion, [facility] Short Haul Driver [id number] at 02/01/2017 1:26 AM CDT Telephone Encounter - Conversion, Historical Provider Ser - 04/30/2016 8:11 AM CDT *Phone Message Document Contains Addenda Addendum by VINEET RAMIREZ LPN on April 30, 2016 09:39:[address] Song pts kidney function has improved. Also sending message in mail. Talked with pt about message below. Addendum by KEVIN KILGORE MD on April 30, 2016 08:48:09 CDT From: KEVIN KILGORE MD To: [facility]; Sent: 04/30/2016 08:48:09 CDT Subject: RE: *Phone Message Nam will have a lot of sodium in it and this could contribute to weight fluctuation. He should trylimit it. For the nose, he can try Flonase which he can get over the counter. Kevin Segura Addendum by HARVEY REDDY LPN on April 30, 2016 08:45:43 CDT From: HARVEY REDDY LPN ([facility] Medicine Nurse [facility]) To: KEVIN KILGORE MD; Sent: 04/30/2016 08:45:43 CDT Subject: FW: *Phone Message From: MARTI CHOI I ([facility]) To: [facility]; Sent: 04/30/2016 08:11:07 CDT Subject: *Phone Message Caller is: ( x ) Patient ( ) Mother ( ) Father ( ) Spouse ( ) Daughter ( ) Son ( ) Pharmacy ( ) Other: Physician: Kevin Song MD Patient MRN #: Reason for Call: Addition to 04/29/16 office visit Message: Patient called and remembered 2 issues he meant to discuss at 04/29/[address] Song asked about the foods he was eating, he occasionally has pizza from [employer]. He also meant to ask her about a problem with his nose running a lot. It is an issue his father had and was never able to be diagnosed, he is wondering if Dr Song would have any thoughts regarding this. Cell number is [phone], home number is [phone]. Advice/Action: Source used: ( ) Verbalizes understanding of instructions ( ) Instructed to call back if symptoms worsen or do not resolve ( ) Refused to see provider ( ) Appointment Scheduled ( ) OK to leave message on voice mail ( ) Patient told to expect return call: ( ) today ( ) tomorrow ( ) next work day ( ) Patient's email ( ) Patient told physician out of office, will call upon return call on ( ) ( ) Patient told physician out of office, routed to other physician ( ) Other ( ) Call back telephone number ( ) Call back cell phone number ( ) Source: [facility] POWERCHART Document Id: [id number] Miscellaneous - Kevin Cobb M.D. - 04/30/2016 6:35 AM CDT Reminder Msg Document Contains Addenda Addendum by ANGEL NGUYEN on June 02, 2016 14:46:51 CDT Done, see message dated 06/02/16. From: KEVIN KILGORE MD To: [facility]; Sent: 04/30/2016 06:35:09 CDT Show up: 05/31/2016 06:35:00 CDT Subject: Reminder Msg Please Remember to: Please call patient for BP and pulse readings. You will speak with his Julissa. Kevin Segura PATIENT: ( ) Call Patient ( ) Ask Patient to ( ) ( ) Call Relative ( ) Schedule Patient ( ) ( ) Call for Administrative Representative ( ) Follow up on Results ( ) Other: PROVIDER: ( ) Call Physician ( ) Call Pharmacist ( ) Call Lab ( ) Other: Special Instructions: Comments: Source: [facility] POWERCHART Document Id: [id number] Electronically signed by Dayami [facility] [employer] Driver [id number] at 02/01/2017 1:26 AM CDT Miscellaneous - Kevin Cobb M.D. - 04/29/2016 7:24 PM CDT Ambulatory Patient Summary [address] [id number] Visit Information Name: NOEMÍ LUNA [facility] Number: [id number] Current Date: 04/29/2016 19:24:41 Physicians Attending Provider: KEVIN KILGORE MD Primary Care Provider: KEVIN KILGORE MD NOEMÍ LUNA has been given the following list of follow-up instructions, medication list, and patient education materials: Follow-up Instructions Your Medications Here is a list of your medications. It is important to take your medications as directed. Use a pillbox or chart to help remind you to take your medications. Please let your doctor or nurse know if you have problems taking your medications. Medication/Strength How to Take Indications/Special Instructions/Comments/Notes for Patient Medication Changes/Routing *cyanocobalamin (cyanocobalamin 1000 mcg/mL injectable solution) 1 Milliliter, Subcutaneous, once a month vitamin B12 deficiency *ferrous sulfate (ferrous sulfate 325 mg (65 mg elemental iron) oral tablet) 1 Tablet(s), Oral, two times a day furosemide (Lasix 40 mg oral tablet) 1 Tablet(s), Oral, once a day as needed for edema Leg Swelling This is a CHANGE Routed to [address] [address] *multivitamin with minerals (Flintstones Complete oral tablet, chewable) 1 Tablet(s), Chewed, two times a day * You have let us know that you are not taking this medication as listed. Please talk with your primary care provider or the health care provider who prescribed the medication as soon as possible. Stop Taking the Following Medications: Medication list as of 04-29-16 19:24 Attention: If you have any medications at home that are not on this list, DO NOT take them until youcontact your provider for clarification. Give a copy of your medication list to your primary care provider. Update your medication list any time medications or doses are changed and carry your medication list at all times in case of emergency. Electronically Signed By: KEVIN KILGORE MD Signed On:29-APR-2016 19:24:36 Your Allergies & Intolerances Substance Reaction Symptoms Category Comments Cipro Drug Influenza Virus Vaccine diarrhea Drug Your Problem List Problem Status Onset Comments Hyperlipidemia Active 12/28/2009 Hypertension essential, NOS Active 12/28/2009 Erectile dysfunction* Active 09/30/13 onset unknown BPH without urinary obstruction Active 09/30/13 onset unknown Urge Incontinence Active 09/30/13 onset unknown Eczema Active 09/30/13 onset unknown Obesity NOS Active 09/30/13 onset unknown Ulcer of skin NOS Active 09/30/13 onset unknown DM II (or NOS), uncontrolled Active 12/28/2009 Optic 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 Active 07/14/2012 Fracture Closed Radial head Active 09/29/2012 09/30/12 left Genital warts Active 09/30/13 onset unknown Morbid Obesity (BMI > 40) (V85.4) Active 04/04/2013 Tinea pedis* Active 09/30/13 onset unknown Tinea cruris. Active 09/30/13 onset unknown Unspecified Adjustment Reaction Active 05/05/2013 12/03/13 Unspecified adjustment reaction Flutter Atrial NOS Active Flutter Atrial NOS Active Your Upcoming Appointments Date Time Location Provider No Appointments found Attention: Contact your local Clinic if further appointment detail needed. Consider Using Patient Online Services Patient Online Services is a secure online and Mobile application that lets you: ?? View lab and test results ?? View portions of your medical record including clinical notes, immunizations and discharge summaries ?? Request an appointment or medication refill ?? Review your appointment schedule ?? Send secure messages to your care team Its easy to create an account if you dont have one. Go to [email or web address] and click on Create Your Account. Then, follow the directions to complete the online form. Youll be asked for your [facility] number which you can find at the top of this document. Your Goals/Additional instructions: Source: [facility] POWERCHART Document Id: [id number] Miscellaneous - Kevin Cobb M.D. - 04/29/2016 7:24 PM CDT Ambulatory Discharge Medication List [address] [id number] Visit Information Name: NOEMÍ LUNA [facility] Number: [id number] Visit Date: 04/29/2016 19:24:41 Attending Provider: KEVIN KILGORE MD Primary Care Provider: KEVIN IKLGORE MD NOEMÍ LUNA has been given the following list of medications: Your Medications It is important to take your medications as directed. Use a pill box or chart to help remind you to take your medications. Please let your doctor or nurse know if you have problems taking your medications. Medication/Strength How to Take Indications/Special Instructions/Comments/Notes for Patient Medication Changes/Routing *cyanocobalamin (cyanocobalamin 1000 mcg/mL injectable solution) 1 Milliliter, Subcutaneous, once a month vitamin B12 deficiency *ferrous sulfate (ferrous sulfate 325 mg (65 mg elemental iron) oral tablet) 1 Tablet(s), Oral, two times a day furosemide (Lasix 40 mg oral tablet) 1 Tablet(s), Oral, once a day as needed for edema Leg Swelling This is a CHANGE Routed to [address] [address] *multivitamin with minerals (Flintstones Complete oral tablet, chewable) 1 Tablet(s), Chewed, two times a day * You have let us know that you are not taking this medication as listed. Please talk with your primary care provider or the health care provider who prescribed the medication as soon as possible. Stop Taking the Following Medications: Medication list as of 04-29-16 19:24 Attention: If you have any medications at home that are not on this list, DO NOT take them until youcontact your provider for clarification. Give a copy of your medication list to your primary care provider. Update your medication list any time medications or doses are changed and carry your medication list at all times in case of emergency. Electronically Signed By: KEVIN KILGORE MD Signed On:29-APR-2016 19:24:36 Additional Information: Source: [facility] POWERCHART Document Id: [id number] Miscellaneous - Alvina Langston, L.P.N. - 04/29/2016 6:33 PM CDT Adult Seat Scooper Machine Intake/History Adult Seat Scooper Machine Intake/History Entered On: 04/29/2016 18:37 CDT Performed On: 04/29/2016 18:33 CDT by ALVINA LANGSTON LPN Intake Chief Complaint : Follow up. Ambulatory Intake Additional Information : Medication refill. Weight gain. Temperature Core : 36.8 DegC(Converted to: 98.2 DegF) Peripheral Pulse Rate : 42 /min (<LLOW) Respiratory Rate : 16 /min Systolic Blood Pressure : 120 mmHg Diastolic Blood Pressure : 70 mmHg NIBP Mean : 87 mmHg BP Location : Left upper extremity Blood Pressure Cuff Size : Large SpO2 : 100 % Oxygen Therapy : Room air Height : 182 cm(Converted to: 6 ft 0 inch(es), 72 inch(es)) Weight Source : Other: Patient refused. States it 181 from home scale. ALVINA LANGSTON [facility] - 04/29/2016 18:33 CDT General Info Information Given By : Patient Preferred Communication Mode : Verbal Languages : Tamazight Is Patient Female and 13-50 no hysterectomy : No ALVINA LANGSTON [facility] - 04/29/2016 18:33 CDT Subjective Pain Symptoms : No ALVINA LANGSTON LPN - 04/29/2016 18:33 CDT Dependent Habits Exposure to Tobacco Smoke : Care provider denies smoking in home, Other: never Smoking Status : Never smoker Tobacco 2A : No Tobacco Use/Currently Using : No Tobacco Use/Last 30 Days : No Tobacco Use/Last 12 months : No Alcohol Use : No ALVINA LANGSTON [facility] - 04/29/2016 18:33 CDT Caffeine Use Grid Caffeine Use : Current Type : Coffee, Soft drinks Frequency : Weekly Amount : soda- weekly; coffee- 1x/week ALVINA LANGSTON [facility] - 04/29/2016 18:33 CDT Recreational Drug Use Grid Drug Use : None ALVINA LANGSTON [facility] - 04/29/2016 18:33 CDT Source: [facility] POWERCHART Document Id: [id number]!40 documented in this encounter Plan of Treatment Not on filedocumented as of this encounter Procedures Procedure Name Priority Date/Time Associated Comments Diagnosis CREATININE WITH Routine 04/29/2016 7:33 PM Result s for this EGFR, S/P CDT procedure are i n the results section. documented in this encounter Results (ABNORMAL) Creatinine with eGFR (04/29/2016 7:33 PM CDT) Analysis Performed At Patho logist Time Signature Creatinine 1.36 (H) 0.60 - POWERCHART 1.30 MGDL HXeGFR (MDRD) 54 (L) >=60 POWERCHART [id number] eGFR >60 >=60 POWERCHART Black/ [id number] Kazakh Specimen (Source) Anatomical Collection Method Collection Time Re ceived Time Location / / Volume Laterality Blood 04/29/2016 7:33 PM CDT Kevin Copeland M.D. LAB BLOOD ADD-ON Performing Organization Address City/State/ZIP Code Phon e Number POWERCHART documented in this encounter Visit Diagnoses Not on filedocumented in this encounter Additional Health Concerns Assessment Noted Time PHQ-9 Depression Total Score: 18 02/14/2013 9:53 AM CD T documented as of this encounter
--- OUTSIDE RECORDS SUMMARY | 2022-07-29 10:51 | XMS_ITS | Encounter Summary ---
:1960 Author Organization [facility] Address [address] [place] [address] Care Team Providers Name Role Phone Unavailable Primary Care Provider Unavailable Encounter Details Date Type Department Care Team Description 09/21/2015 Hospital Encounter [facility]X [facility]TR[facility] Cintia lindquist M.D. [address] [place] [phone] (Wo rk) Social History Tobacco Use [...] Concentration - - Weight - - Height 180 cm (5' 10.87) 09/21/2015 2:13 PM ROUND UP [facility]ING HAND Body Mass Index - - documented in this encounter Medications at Time of Discharge Medication Sig Dispensed Refills Start Date End Date ferrous sulfate 325 mg Take 1 tablet by 0 015 11/24/2017 (65 mg iron) tablet mouth 2 (two) times a day. documented as of this encounter Miscellaneous Notes Miscellaneous - Shirlene Abbott, RPiliN. 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 Addendum by SHIRLENE ABBOTT RN on January 22, 2016 13:44:29 CDT Tried to call pt back to give below info - [phone] Addendum by CINTIA KILGORE MD on January 22, 2016 13:22:38 CDT From: CINTIA KILGORE MD To: SHIRLENE ABBOTT RN; Sent: 01/22/2016 13:22:38 CDT Subject: RE: wt and legs Agree with plan. Patient can wear compression stockings to help with the aching legs in the mean time. He can buy these over the counter. Thanks, Cintia From: SHIRLENE ABBOTT RN To: CINTIA KILGORE MD; Sent: 01/22/2016 12:52:52 CDT Subject: wt and legs Pt calls to say he gains and loses wt, and has achy legs and might have cracked a rib - doesn't not say how. Returned call, pt not in area, advised visit as we had done for concern about weight and legs last month. Pt not near calendar and will call back to make appt. Source: [facility] POWERCHART Document Id: [id number] Electronically signed by Conversion, [facility] Superannuation Funds Manager [id number] at 01/31/2017 10:58 AM CDT Miscellaneous - Xochitl Hackett, L.P.N. - 10/30/2015 10:36 AM CST *General Message Document Contains Addenda Addendum by VINEET RAMIREZ LPN on November 20, 2015 13:50:27 CDT Lvm for pt on his cell phone # that is listed in Demographics. He has noted in the past to use thisnumber to leave messages. Gave him the message below and to make appt. Addendum by XOCHITL HACKETT on November 12, 2015 16:00:40 ROUND [employer] HAND No answer at home number - will try again tomorrow. Addendum by XOCHITL HACKETT on 05 November 2015 09:14:12 ROUND [employer] HAND Message left with client's to him return our call at his convenience. Addendum by XOCHITL HACKETT on 31 October 2015 08:44:50 ROUND UP [employer]ING HAND No answer at above number, will try again later. Addendum by CINTIA KILGORE MD on 30 October 2015 15:58:55 ROUND UP [employer]ING HAND From: CINTIA KILGORE MD To: XOCHITL HACKETT; Sent: 10/30/2015 15:58:55 ROUND [employer]ING HAND Subject: RE: *General Message He does take his Lasix at night. 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 It would probably be good to see him with his weight log to see how much it is fluctuating. If it is gradually going up, it could be weight gain. If it is fluctuating quite a bit day to day, that would make me worry more about water weight. He can keep taking his current dose of Lasix (with the extra we had previously discussed) and follow up with my next opening. Thanks, Cintia From: XOCHITL HACKETT To: CINTIA KILGORE MD; Sent: 10/30/2015 10:36:56 ROUND [employer]ING HAND Subject: *General Message Client left a voice mail this morning @ 9:28. Weight is up to 190 vs 184 per his report. He is taking extra diuretic - per his report - more than you instructed him to take - sounds like he's pretty much adjusting his diuretics on his own, also, sounds like he's taking these at night? Hard to get a straight answer from him on this. Denies sob andsignificant swelling - believes his ankles may be slightly swollen at the end of the day, but nothing appreciable or out of his ordinary. Has not been working since last week in September due to his truck being out of commission so it does sound like his usual routine has been disrupted. Blood sugars have been great, most recently 83 yesterday. Did you want to see him? If so, how soon? I told him I'd touch base with him at his home number whenI spoke with you. Thanks, Nicki Source: [facility] Delight Document Id: [id number] Electronically signed by Conversion, [facility] Superannuation Funds Manager [id number] at 01/31/2017 10:58 AM CDT Miscellaneous - Shirlene Abbtot R.N. - 10/22/2015 12:24 PM CST diabetic supplies From: SHIRLENE ABBOTT RN Sent: 10/22/2015 12:24:17 ROUND [facility]ING HAND Subject: diabetic supplies Submitted: Order:Rx Lancets Supply MISC Once 100 count to use 2x/wk or as directed.Please include Lancing device. Accu chek, Jolie Plus IDDM 250.00 Qty: 1 box(es) Refills: 1 Substitutions Allowed Route To Pharmacy - [id number] Signed by SHIRLENE ABBOTT RN 10/22/2015 12:21:11 Submitted: Order:Rx Test Strips Supply MISC Once 50 count Accu check Jolie Plus Use 2x/week or as directed IDDMII E11.9 Qty: 50 each Refills: 2 Substitutions Allowed Route To Pharmacy - [id number] Signed by SHIRLENE ABBOTT RN 10/22/2015 12:20:02 Insurance wants to cover different brand on equipment, sent scripts: Source: [facility] Delight Document Id: [id number] Electronically signed by Conversion, [facility] Superannuation Funds Manager [id number] at 01/31/2017 10:58 AM CDT Miscellaneous - Conversion, Historical Provider Ser - 10/11/2015 12:00 AM ROUND UP RING HAND Quality Measures Quality Measures Entered On: 11/12/2015 11:53 ROUND UP RING HAND Performed On: 10/11/2015 0:00 ROUND UP RING HAND by NATHALIE BUTLER Diabetes Date of Last Eye Exam : 10/11/2015 ROUND UP RING HAND NATHALIE BUTLER - 11/12/2015 11:53 ROUND UP RING HAND Source: [facility] Delight Document Id: [id number] ROUND UP RING HAND!3 Miscellaneous - Cintia Cobb M.D. - 09/26/2015 6:49 AM ROUND UP RING HAND Normal Results Letter 26 September 2015 ED [place] [address] [facility] [phone] Dear LAZ LUNA, Please review the enclosed copy of your ultrasound report. It appears that the hard lumps are calcium deposits. These can form if you have an injury to a muscle. They are likely more evident since you have lost weight. Please follow up with us as we discussed during your visit or sooner if you have any concerns. If you have questions or concerns, please do not hesitate to call our office. Result Name Current Result US Soft Tissue Lower Extremity Left 09/21/2015 Sincerely, CINTIA KILGORE [address] [address] Electronic Signature Electronically Signed By: CINTIA KILGORE MD On: 26 September 2015 This document has images extracted. Source: [employer] Document Id: [id number] Electronically signed by Conversion, [facility] Superannuation Funds Manager [id number] at 01/31/2017 10:58 AM CDT Miscellaneous - Conversion, Historical Provider Ser - 09/21/2015 11:59 PM ROUND UP RING HAND Coding Summary-Paper Based CODING DATE: 09/24/2015 FINAL [facility] STATUS: * Discharged to Home or Self Care PAYOR: Medicaid ADMIT DX: REASON FOR VISIT DX: FINAL DX: PRINCIPAL: R22.9 Localized swelling, mass and lump, unspecified SECONDARY: R93.6 Abnormal findings on diagnostic imaging of limbs PROCEDURES DOCTOR NAME DATE NOTE: The code number assigned matches the documented diagnosis and / or procedure in the patient's chart. However, the narrative phrase printed from the coding software may appear abbreviated, or result in slightly different terminology. Coded By: ALON CABELLO Date Saved: 09/24/2015 02:59 pm Source: [employer] Document Id: [id number] documented in this encounter Plan of Treatment Not on filedocumented as of this encounter Visit Diagnoses Not on filedocumented in this encounter Additional Health Concerns Assessment Noted Time PHQ-9 Depression Total Score: 18 02/14/2013 9:53 AM CD T documented as of this encounter
--- OUTSIDE RECORDS SUMMARY | 2022-07-29 10:51 | XMS_ITS | Encounter Summary ---
:1960 Author Organization [facility] Address [address] [place] [address] Care Team Providers Name Role Phone Unavailable Primary Care Provider Unavailable Encounter Details Date Type Department Care Team Description 07/13/2016 Hospital Encounter HX [facility] ED Alexandra Barker M.D. [address] [place] [address] (Wo rk) Social History Tobacco Use Types Packs/Day Years Used Date Smoking Tobacco: Never Assessed Sex Assigned at Date Recorded Not on file documented as of this encounter Last Filed Vital Signs Vital Sign Reading Time Taken Comments Blood Pressure 142/83 07/13/2016 7:58 PM APPLIQUE CUTTER Pulse 37 07/13/2016 7:10 PM APPLIQUE CUTTER Temperature - - Respiratory Rate 20 07/13/2016 7:58 PM APPLIQUE CUTTER Oxygen Saturation - - Inhaled Oxygen Concentration - - Weight - - Height - - Body Mass Index - - documented in this encounter Discharge Summaries Lesli Sotomayor, R.N. - 07/13/2016 7:59 PM CST ED Depart Summary [facility] Emergency Department Clinical Discharge Summary PERSON INFORMATION Name NOEMÍ LUNA Age 56 Years 1960 12:00 AM Sex Male Language [place] Citizen PCP KEVIN KILGORE MD Marital Status Visit Id Visit Reason Rash; Wants someone to take a oicture of his rash Specialty Enc Type Emergency Med Service Emergency Medicine Referred by Track Group [facility] ED Discharge 07/13/2016 7:59 PM Tracking Id [id number] Checkout 07/13/2016 7:59 PM Checkin 07/13/2016 7:03 PM Acuity 4 -Less Urgent Dispo Type * Discharged to Home or Self Care Arrival 07/13/2016 7:03 PM Reg Status Complete LOS 000 00:56 Address: [address] [place] [phone] Comment: PROVIDER INFORMATION Provider Role Provider Contact Time CIERRA BARKER MD ED Provider 07/13/16 19:07 LESLI SOTOMAYOR TRUCK DRIVER SUPERVISOR Nurse 07/13/16 19:15 DIAGNOSIS Rash Groin Comment: PATIENT EDUCATION INFORMATION Instructions: Self-Care for Skin Rashes Follow up: With: Address: When: KEVIN KILGORE [address] [place] [id number] Business (1) Within As Needed Comments: The photo of your rash will be sent to plastic surgeon Dr. Richard. Source: [facility] POWERCHART Document Id: [id number] IQUE CUTTER Lesli Sotomayor, R.N. - 07/13/2016 7:59 PM CST ED Discharge Instructions [address] [address] Name: NOEMÍ LUNA Date of : 1960 12:00 AM Visit Date: 07/13/2016 7:03 PM [facility] Number: [id number] Address: [address] [place] [phone] Primary Care Provider: KEVIN KILGORE MD IMPORTANT: [facility] in [place] would like to thank you for allowing us to assist you with your healthcare needs. The following includes patient education materials and informationregarding your injury/illness. Diagnosis: Rash Groin Follow-Up Instructions: With: Address: When: KEVIN FERRER-[address] [address] [employer] (1) Within As Needed Comments: The photo of your rash will be sent to plastic surgeon Dr. Richard. Your Upcoming Appointments: Date Time Location Provider No Appointments found Patient Education Materials: Self-Care for Skin Rashes A rash is your skins reaction to a substance your body is sensitive to. Most rashes can be treated at home by keeping the skin clean and dry. Many rashes are self-limited and may resolve within 2 to 3 days. Rashes that itch, drain, or hurt may require the attention of a doctor, particularly if the rash is getting worse. Common causes of rashes ?? Sun poisoning, caused by too much exposure to the sun ?? An irritant or allergic reaction to a certain type of food, plant, or chemical. Examples include shellfish, poison chacha and or cleaning products ?? An infection caused by a fungus (ringworm), virus (chickenpox), or bacteria (strep) ?? Bites or infestation due to insects or pests, such as ticks, lice, or mites ?? Dry skin, which is often seen during the winter months and in elderly people Control itching and skin damage ?? Take soothing baths. Try 1 cup of oatmeal in a tub of warm water Water that evaporates is coolingto the skin. ?? Do your best not to scratch. Clip fingernails, especially in young children, to reduce skin damage if scratching does occur. ?? Use moisturizing skin lotion instead of scratching your dry skin. ?? Use sunscreen whenever going out into direct sun. Only mild cleansing agents whenever possible ?? Wash with mild, nonirritating soap and warm water. ?? Wear clothing that breathes, such as cotton shirts or canvas shoes. ?? If fluid is seeping from the rash, cover it loosely with clean gauze to absorb the discharge. ?? Many rashes are contagious. Prevent the rash from spreading to others by washing your hands frequently before or after touching others with any skin rash. Use medication ?? Antihistamines, such as diphenhydramine, can help control itching of many rashes. ?? Using fyrl-jgb-nrzlgyv hydrocortisone cream on small rashes may help reduce swelling and itching. Most rrwv-eid-osmrnue antifungal medications can treat athletes foot and many other fungal infections of the skin. Check with your pharmacist If: ?? You were told that you have a fungal infection on your skin. ?? You have questions about or concerns of side effects of a medication. Call 911 If: Your tongue or lips start to swell. You have difficulty breathing. Call Your health care provider If: You have a temperature over 101.0?F (38.3?C) You have a sore throat, a cough, orunusual fatigue. You have an increasingly red, oozy, or painful rash (signs of infection). You have a rash that covers your face, genitals, or most of your body. You have crusty sores or red rings thatbegin to spread. You were exposed to someone who has a contagious rash, such as scabies or lice. Youhave a red bulls-eye rash with a white center (a sign of Lyme disease). You were told that you have resistant bacteria (MRSA) on your skin. ?? [id number] [facility], [address] [place] [address]. All rights reserved. This information is not intended as a substitute for professional medical care. Always follow your healthcare professional's instructions. Consider Using Patient Online Services Patient Online [...] if you dont have one. Go to [email or web address] and click on Create Your Account. Then, follow the directions to complete the online form. Youll be asked for your [facility] number which you can find at the top of this document. ED Tests and Procedures: Order Status Discharge Prescriptions & Home Medications: Medication/Strength Dose Route Frequency Indications/Special Instructions/Comments/Notes furosemide (Lasix 40 mg oral tablet) 40 mg Oral two times a day as needed for edema Leg Swelling lisinopril (lisinopril 10 mg oral tablet) 10 mg Oral once a day blood pressure allopurinol (allopurinol 300 mg oral tablet) 300 mg Oral once a day kidney stones *cyanocobalamin (cyanocobalamin 1000 mcg/mL injectable solution) 1,000 mcg Subcutaneous once a monthvitamin B12 deficiency *multivitamin with minerals (Flintstones Complete oral tablet, chewable) 1 tab(s) Chewed two times aday *ferrous sulfate (ferrous sulfate 325 mg (65 mg elemental iron) oral tablet) 325 mg Oral two times aday * You have let us know that you are not taking this medication as listed. Please talk with your primary care provider or the health care provider who prescribed the medication as soon as possible. Comment: Attention: If you have any medications at home not on this list, DO NOT take them until you contact your provider for clarification. Give a copy of your medication list to your primary care provider. Update your medication list any time medications or doses are changed and carry your medication list at all times in case of emergency. IMPORTANT: We examined and treated you today on an emergency basis only. This was not a substitute for, or an effort to provide, complete medical care. In most cases, you must let your doctor check youagain. Tell your doctor about any new or lasting problems. We cannot recognize and treat all injuries or illnesses in one Emergency Department visit. If you had special tests, such as EKG's or X- rays, we will review them again within 24 hours. We will call you if there are any new suggestions. Please follow the instructions above carefully. If you are being transferred to another facility your followup plan of care will be determined by the receiving facility. If you are a patient that is being discharged from the Emergency Department after receiving narcotics or other medications that may impair your judgment you may be a risk to yourself or others if you operate a motor vehicle. We recommend that you arrange a ride home with a responsible libertarian. CARLYLE Contreras ED J , or responsible libertarian have received this information and my questions have been answered. I have discussed any challenges I see with this plan with the nurse or physician. Patient Signature or Responsible Libertarian/Relationship Date Time Provider Signature Date Time IMPORTANT: We examined and treated you today on an emergency basis only. This was not a substitute for, or an effort to provide, complete medical care. In most cases, you must let your doctor check youagain. Tell your doctor about any new or lasting problems. We cannot recognize and treat all injuries or illnesses in one Emergency Department visit. If you had special tests, such as EKG's or X- rays, we will review them again within 24 hours. We will call you if there are any new suggestions. Please follow the instructions above carefully. If you are being transferred to another facility your followup plan of care will be determined by the receiving facility. If you are a patient that is being discharged from the Emergency Department after receiving narcotics or other medications that may impair your judgment you may be a risk to yourself or others if you operate a motor vehicle. We recommend that you arrange a ride home with a responsible libertarian. CARLYLE Contreras ED J , or responsible libertarian have received this information and my questions have been answered. I have discussed any challenges I see with this plan with the nurse or physician. Patient Signature or Responsible Libertarian/Relationship Date Time Provider Signature Date Time Source: [facility] POWERCHART Document Id: [id number] IQUE CUTTER documented in this encounter Medications at Time of Discharge Medication Sig Dispensed Refills Start Date End Date PEDIATRIC MULTIVITAMIN Take 4 tablets by 0 2015 NO.76 (FLINTSTONES mouth daily. COMPLETE ORAL) ferrous sulfate 325 mg Take 1 tablet by 0 015 11/24/2017 (65 mg iron) tablet mouth 2 (two) times a day. documented as of this encounter ED Notes Lesli Sotomayor R.N. - 07/13/2016 7:58 PM CST ED Disposition Summary ED Disposition Summary Entered On: 07/13/2016 19:58 APPLIQUE CUTTER Performed On: 07/13/2016 19:58 APPLIQUE CUTTER by LESLI SOTOMAYOR RN ED Disposition Summary Present in Room During Exam/Procedure : Alone Mode of Discharge : Ambulatory Transportation : Private vehicle Printed Discharge Instructions Given to Patient : Yes Patient Status at Discharge from ED : Improved LESLI SOTOMAYOR RN - 07/13/2016 19:58 APPLIQUE CUTTER Source: Tendril Document Id: [id number] APPLIQUE CUTTER!7 IQUE CUTTER Lesli Sotomayor R.N. - 07/13/2016 7:58 PM CST ED Pain Assessment ED Pain Assessment Entered On: 07/13/2016 19:58 APPLIQUE CUTTER Performed On: 07/13/2016 19:58 APPLIQUE CUTTER by LESLI SOTOMAYOR RN Pain Assessment Pain Symptoms : No LESLI SOTOMAYOR RN - 07/13/2016 19:58 APPLIQUE CUTTER Source: [employer]ril Document Id: [id number] APPLIQUE CUTTER!3 IQUE CUTTER Cierra Barker M.D. - 07/13/2016 7:41 PM CST Rash Document Contains Addenda Addendum by CIERRA BARKER MD on July 14, 2016 0:[address] Doyle sent an email stating that he does not have coverage for surgical repair of his abdominal skin fold, so treatment can be prescribed. Will treat with clotrimazole cream BID. Electronically Signed By: CIERRA BARKER MD On: 07/13/2016 09:49 PM Modified by and Electronically Signed by: CIERRA BARKER MD On: 07/13/2016 09:47 PM Modified by and Electronically Signed by: CIERRA BARKER MD On: 07/14/2016 12:36 AM Rash Patient: NOEMÍ LUNA Age: 56 years Sex: Male : 1960 Author: CIERRA BARKER MD Attachments: None Associated Diagnosis: Rash Groin Basic Information Time seen: Date 07/13/2016. History source: Patient. Arrival mode: Private vehicle, walking. History limitation: None. Additional information: Chief Complaint from Nursing Triage Note : Chief Complaint Description 07/13/2016 19:10 APPLIQUE CUTTER Chief Complaint Description Pt comes in to ER with c/o of a rash to right lowerabdomen and just want a picture taken of it for another Dr. . History of Present Illness States he is here to have his groin rash photographed, as suggested by his plastic surgeon, Dr. April Doyle, from [place]. The rash is red, weeping, but not pruritic. He denies pain, fever or chills. He simply wants a photo taken and sent to her. Per problem list, he has had previous tinea cruris, which this rash may well be. The patient presents with rash. The onset was 1 weeks ago. The course/duration of symptoms is worsening. Location: Right groin. The character of symptoms is redness and oozing, no pain, no itching, no swelling and not burning. Radiating symptom(s): none. The degree of symptoms is minimal. Therapy today: none. Associated symptoms: none. Review of Systems Constitutional symptoms: Negative except as documented in HPI. Skin symptoms: Negative except as documented in HPI. Gastrointestinal symptoms: No abdominal pain. Hematologic/Lymphatic symptoms: Bleeding tendency negative. Additional review of systems information: All other systems reviewed and otherwise negative. Health Status Allergies: Allergic Reactions (Selected) Severity Not Documented Cipro- No reactions were documented. Nonallergic Reactions (Selected) Severity Not Documented Influenza Virus Vaccine- Diarrhea.. Medications: (Selected) Prescriptions Prescribed Flintstones Complete oral tablet, chewable: 1 tab(s), Chewed, 2xDay, 180 tab(s), 1 Refill(s) Lasix 40 mg oral tablet: 40 mg, 1 tab(s), PO, 2xDay, for 30 day(s), Leg Swelling, PRN: edema, 60 tab(s), 0 Refill(s) allopurinol 300 mg oral tablet: 300 mg, 1 tab(s), PO, Daily, kidney stones, 90 tab(s), 1 Refill(s) cyanocobalamin 1000 mcg/mL injectable solution: 1,000 mcg, 1 mL, Subcut., Monthly, vitamin B12 deficiency, 4 mL, 3 Refill(s) ferrous sulfate 325 mg (65 mg elemental iron) oral tablet: 325 mg, 1 tab(s), PO, 2xDay, 60 tab(s), 0Refill(s) lisinopril 10 mg oral tablet: 10 mg, 1 tab(s), PO, Daily, blood pressure, 90 tab(s), 3 Refill(s), Patient is unsure of his medications. He states he sometimes misses his B12 injections, but does also take oral B12 most days. He is no longer taking iron.. Immunizations: Include Immunizations Immunizations reviewed. , tetanus up to date, No pneumonia vaccinations recorded.. Past Medical/ Family/ Social History Medical history: Active Fracture Closed Radial head (813.05): Onset on 09/29/2012 at 52 years. Comments: 09/30/2012 APPLIQUE CUTTER 15:06 STEVE COUCH APRN PANEL MACHINE SETTER left Genital warts (078.19) Comments: 09/30/2013 APPLIQUE CUTTER 11:47 ANOOP MESSE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 Tinea pedis* (110.4) Comments: 09/30/2013 APPLIQUE CUTTER 11:47 ANOOP MESSE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 Tinea cruris. (110.3) Comments: 09/30/2013 APPLIQUE CUTTER 11:47 ANOOP MESSE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. Surgical history: Gastric bypass ([id number]) on 11/19/2014 at 54 Years. Cystoscopy ([id number]) on 12/26/2009 at 49 Years. Comments: 02/20/2010 08:36 - STEVE ANDREA CNP [facility] / normal PSA, TOTAL SCREENING ([id number]) on 12/26/2009 at 49 Years. Comments: 02/20/2010 08:38 - STEVE ANDREA CNP Done at [facility] / Result: 1.55 Discectomy ([id number]) on 02/19/1989 at 28 Years. Comments: 12/28/2009 09:38 - STEVE ANDREA PANEL MACHINE SETTER lumbar L4-L5. Family history: Diabetes mellitus Mother () Hypertension Father Myocardial infarction Mother () Kidney disease Mother () Congestive heart failure Father . 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 Problem list: All Problems Optic disc cupping / 377.14 / Confirmed BPH without urinary obstruction / 600.00 / Confirmed Unspecified Adjustment Reaction / 309.9 / Confirmed Eczema / 692.9 / Confirmed Flutter Atrial NOS / 427.32 / Confirmed Genital warts / 078.19 / Confirmed Hyperlipidemia / 272.4 / Confirmed Hypertension essential, NOS / 401.9 / Confirmed Erectile dysfunction* / 607.84 / Confirmed Intertrigo. / 695.89 / Confirmed Obesity NOS / 278.00 / Confirmed Tinea cruris. / 110.3 / Confirmed Tinea pedis* / 110.4 / Confirmed Urge Incontinence / 788.31 / Confirmed Ulcer of skin NOS / 707.9 / Confirmed Inactive: DM II (or NOS), uncontrolled / 250.02 Inactive: Pyelonephritis / 590.80 Inactive: Kidney stone / 592.0 Resolved: Fracture Closed Radial head / 813.05 Resolved: Morbid Obesity (BMI > 40) (V85.4) / 278.01 Canceled: Diabetes mellitus type II / 250.00 Canceled: Flutter Atrial NOS / 427.32 Canceled: Renal stone / 592.0. Physical Examination Vital Signs: Vital Signs 07/13/2016 19:10 APPLIQUE CUTTER Temperature Core 36.4 DegC LOW Peripheral Pulse Rate 37 /min <LLOW Respiratory Rate 18 /min SpO2 100 % Systolic Blood Pressure 144 mmHg HI Diastolic Blood Pressure 71 mmHg Mean Arterial Pressure 95 mmHg , SpO2 07/13/2016 19:10 APPLIQUE CUTTER SpO2 100 % . General: Alert and no acute distress. Skin: Warm, dry, Note, when lifting abdominal tissue up to view left groin, the scar from his abdominoplasty centrally and superficially, with some minor bleeding. and Rash: Right groin, skinfold , linear, inflamed, discrete margin, red, consistent with a fungal infection. Head: Normocephalic. Eye: Normal conjunctiva. Cardiovascular: Regular rate and rhythm. Respiratory: Respirations are non-labored. Gastrointestinal: Non distended. Neurological: Normal motor observed and normal speech observed. Psychiatric: Cooperative. Medical Decision Making Differential Diagnosis:Skin rash, dermatitis, superficial fungal infection. Rationale:Patient states he wants the rash photographed, wants Dr. Doyle to prescribe based on photo.. OrdersLaunch Orders Pharmacy: bacitracin 500 units/g topical ointment (Order Processing): 1 jannie, Topical, Once. Notes:. Procedure Using Ipad, image was photographed and is in Qreads as well as embedded in this note. Impression and Plan Diagnosis Rash Groin (Discharge, Emergency medicine, Medical) Plan Condition: Stable. Disposition: Medically cleared, Discharged: to home. Patient was given the following educational materials: Self-C are for Skin Rashes. Follow up with: APRIL DOYLE MD, PHD, In: She will contact you regarding treatment.. Electronically Signed By: CIERRA BARKER MD On: 07/13/2016 09:49 PM Modified by and Electronically Signed by: CIERRA BARKER MD On: 07/13/2016 09:47 PM This document has images extracted. Source: [facility] DeepRockDriveCHART Document Id: [id number]} IQUE CUTTER Manan Ramírez, R.N. - 07/13/2016 7:12 PM CST ED Primary Assessment Document Has Been Updated ED Primary Assessment Entered On: 07/13/2016 19:13 APPLIQUE CUTTER Performed On: 07/13/2016 19:12 APPLIQUE CUTTER by MANAN RAMÍREZ RN Reason For Visit (As Of: 07/13/2016 19:13:41 APPLIQUE CUTTER) Problems(Active) BPH without urinary obstruction (ICD-9-CM :600.00 ) Name of Problem: BPH without urinary obstruction; Recorder: STEVE ANDREA APRN, CNP; Confirmation: Confirmed ; Classification: Medical ; Code: 600.00 ; Contributor System: Rukuku ; Last Updated: 02/15/2010 10:00 CDT ; Life Cycle Date: 02/15/2010 ; Life Cycle Status: Active ; Responsible Provider: STEVE ANDREA APRN, CNP; Vocabulary: ICD-9-CM ; Comments: 09/30/2013 11:46 - ANOOP QUEVEDO SOCC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 onset unknown DM II (or NOS), uncontrolled (ICD-9-CM :250.02 ) Name of Problem: DM II (or NOS), uncontrolled ; Onset Date: 12/28/2009 ; Recorder: STEVE ANDREA APRN, CNP; Confirmation: Confirmed ; Classification: Medical ; Code: 250.02 ; Contributor System: PowerChart ; Last Updated: 07/24/2011 10:45 APPLIQUE CUTTER ; Life Cycle Date: 12/05/2010 ; Life Cycle Status: Active ; Responsible Provider: STEVE ANDREA APRN, CNP; Vocabulary: ICD-9-CM Eczema (ICD-9-CM :692.9 ) Name of Problem: Eczema ; Recorder: STEVE ANDREA APRN, CNP; Confirmation: Confirmed ; Classification: Medical ; Code: 692.9 ; Contributor System: PowerChart ; Last Updated: 01/25/2014 16:29 CDT ; Life Cycle Date: 09/05/2010 ; Life Cycle Status: Active ; Responsible Provider: STEVE ANDREA APRN, CNP; Vocabulary: ICD-9-CM ; Comments: 09/30/2013 11:47 - ROHIT QUEVEDOSSICA Abby ZURITA onset unknown Erectile dysfunction* (ICD-9-CM :607.84 ) Name of Problem: Erectile dysfunction* ; Recorder: STEVE ANDREA APRN, CNP; Confirmation: Confirmed ; Classification: Medical ; Code: 607.84 ; Contributor System: PowerChart ; Last Updated: 12/28/2009 9:40 CDT ; Life Cycle Date: 12/28/2009 ; Life Cycle Status: Active ; Responsible Provider: STEVE ANDREA APRN, CNP; Vocabulary: ICD-9-CM ; Comments: 09/30/2013 11:46 - SAE ANOOP Mora LPN onset unknown Flutter Atrial NOS (ICD-9-CM :427.32 ) Name of Problem: Flutter Atrial NOS ; Recorder: KEVIN KILGORE MD; Confirmation: Confirmed ; Classification: Medical ; Code: 427.32 ; Contributor System: PowerChart ; Last Updated: 07/29/2014 7:02 APPLIQUE CUTTER ; Life Cycle Status: Active ; Responsible Provider: KEVIN KILGORE MD; Vocabulary: ICD-9-CM Flutter Atrial NOS (ICD-9-CM :427.32 ) Name of Problem: Flutter Atrial NOS ; Recorder: JOSIE CASTANEDA LPN, RT; Confirmation: Confirmed ; Classification: Medical ; Code: 427.32 ; Contributor System: StatzupChart ; Last Updated: 01/04/2015 10:57 CDT ; Life Cycle Status: Active ; Vocabulary: ICD-9-CM Fracture Closed Radial head (ICD-9-CM :813.05 ) Name of Problem: Fracture Closed Radial head ; OnsetDate: 09/29/2012 ; Recorder: STEVE ANDREA APRN, CNP; Confirmation: Confirmed ; Classification: Medical ; Code: 813.05 ; Contributor System: PowerChart ; Last Updated: 09/30/2012 15:06 APPLIQUE CUTTER ; Life Cycle Date: 09/30/2012 ; Life Cycle Status: Active ; Responsible Provider: STEVE ANDREA APRN, CNP; Vocabulary: ICD-9-CM ; Comments: 09/30/2012 15:06 - STEVE ANDREA APRN, CNP left Genital warts (ICD-9-CM :078.19 ) Name of Problem: Genital warts ; Recorder: MARILUZ FRAGA MD; Confirmation: Confirmed ; Classification: UPDATE NEEDED ; Code: 078.19 ; Contributor System: PowerChart; Last Updated: 11/05/2015 4:20 APPLIQUE CUTTER ; Life Cycle Date: 02/11/2013 ; Life Cycle Status: Active ; Responsible Provider: MARILUZ FRAGA MD; Vocabulary: ICD-9-CM ; Comments: 09/30/2013 11:47 - ANOOP QUEVEDO LPN onset unknown Hyperlipidemia (ICD-9-CM :272.4 ) Name of Problem: Hyperlipidemia ; Onset Date: 12/28/2009 ; Recorder: STEVE ANDREA APRN, CNP; Confirmation: Confirmed ; Classification: Medical ; Code: 272.4 ; Last Updated: 12/28/2009 9:39 CDT ; Life Cycle Status: Active ; Responsible Provider: STEVE ANDREA APRN, CNP; Vocabulary: ICD-9-CM Hypertension essential, NOS (ICD-9-CM :401.9 ) Name of Problem: Hypertension essential, NOS ; Onset Date: 12/28/2009 ; Recorder: STEVE ANDREA APRN, CNP; Confirmation: Confirmed ; Classification: Medical ; Code: 401.9 ; Last Updated: 12/28/2009 9:39 CDT ; Life Cycle Status: Active ; Responsible Provider: STEVE ANDREA APRN, CNP; Vocabulary: ICD-9-CM Intertrigo. (ICD-9-CM :695.89 ) Name of Problem: Intertrigo. ; Onset Date: 07/14/2012 ; Recorder: MARILUZ FRAGA MD; Confirmation: Confirmed ; Classification: UPDATE NEEDED ; Code: 695.89 ; Last Updated: 07/14/2012 14:36 APPLIQUE CUTTER ; Life Cycle Status: Active ; Responsible Provider: MARILUZ FRAGA MD; Voc abulary: ICD-9-CM Morbid Obesity (BMI > 40) (V85.4) (ICD-9-CM :278.01 ) Name of Problem: Morbid Obesity (BMI > 40) (V85.4) ; Onset Date: 04/04/2013 ; Recorder: TIERRA BAILEY; Confirmation: Confirmed ; Classification: Medical ; Code: 278.01 ; Last Updated: 04/04/2013 15:42 CDT ; Life Cycle Status: Active ; Responsible Provider: TIERRA BAILEY; Vocabulary: ICD-9-CM Obesity NOS (ICD-9-CM :278.00 ) Name of Problem: Obesity NOS ; Recorder: STEVE ANDREA APRN, CNP; Confirmation: Confirmed ; Classification: Medical ; Code: 278.00 ; Contributor System: PowerChart ; Last Updated: 09/05/2010 9:56 APPLIQUE CUTTER ; Life Cycle Date: 09/05/2010 ; Life Cycle Status: Active ; Responsible Provider: STEVE ANDREA APRN, CNP; Vocabulary: ICD-9-CM ; Comments: 09/30/2013 11:47 - ANOOP QUEVEDO LPN onset unknown 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 (ICD-9-CM :110.3 ) Name of Problem: Tinea cruris. ; Recorder: MARILUZ FRAGA MD; Confirmation: Confirmed ; Classification: Medical ; Code: 110.3 ; Contributor System: StatzupChart ; Last Updated: 06/01/2013 9:06 CDT ; Life Cycle Date: 06/01/2013 ; Life Cycle Status: Active ; Responsible Provider: MARILUZ FRAGA MD; Vocabulary: ICD-9-CM ; Comments: 09/30/2013 11:47 Shea ANOOP QUEVEDO RLPN onset unknown Tinea pedis* (ICD-9-CM :110.4 ) Name of Problem: Tinea pedis* ; Recorder: MARILUZ FRAGA MD; Confirmation: Confirmed ; Classification: Medical ; Code: 110.4 ; Contributor System: StatzupChart ; Last Updated: 02/02/2014 8:24 CDT ; Life Cycle Date: 06/01/2013 ; Life Cycle Status: Active ; Responsible Provider: MARILUZ FRAGA MD; Vocabulary: ICD-9-CM ; Comments: 09/30/2013 11:47 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 Ulcer of skin NOS (ICD-9-CM :707.9 ) Name of Problem: Ulcer of skin NOS ; Recorder: HALEIGH SCHULTZ APRN, CNP; Confirmation: Confirmed ; Classification: UPDATE NEEDED ; Code: 707.9 ; Contributor System:PowerChart ; Last Updated: 09/18/2010 8:25 APPLIQUE CUTTER ; Life Cycle Date: 09/18/2010 ; Life Cycle Status: Active ; Responsible Provider: HALEIGH SCHULTZ APRN, CNP; Vocabulary: ICD-9-CM ; Comments: 09/30/2013 11:47 Shea 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 Unspecified Adjustment Reaction (ICD-9-CM :309.9 ) Name of Problem: Unspecified Adjustment Reaction ; Onset Date: 05/05/2013 ; Confirmation: Confirmed ; Classification: Medical ; Code: 309.9 ; Contributor System: [facility]_UPLOAD ; Last Updated: 12/03/2013 18:36 CDT ; Life Cycle Status: Active ; Vocabulary: ICD-9-CM ; Comments: - Unspecified adjustment reaction Urge Incontinence (ICD-9-CM :788.31 ) Name of Problem: Urge Incontinence ; Recorder: STEVE ANDREA CNP; Confirmation: Confirmed ; Classification: Medical ; Code: 788.31 ; Contributor System: StatzupChart ; Last Updated: 02/20/2010 8:39 CDT ; Life Cycle Date: 02/20/2010 ; Life Cycle Status: Active; Responsible Provider: STEVE ANDREA APRN, CNP; Vocabulary: ICD-9-CM ; Comments: 09/30/2013 11:46 - ANOOP QUEVEDO 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 onset unknown Diagnoses(Active) Rash Date: 07/13/2016 ; Diagnosis Type: Reason For Visit ; Confirmation: Complaint of ; Clinical Dx:Rash ; Classification: Medical ; Clinical Service: Emergency medicine ; Code: PNED ; Probability: 0 ; Diagnosis Code: [id number] Triage Chief Complaint Description : see triage Mode of Arrival ED : Private vehicle, Ambulatory Track : Medical Languages : [place] Citizen Treatments Prior to Arrival : None Is Patient Female and 13-50 no hysterectomy : No MANAN RAMÍREZ RN - 07/13/2016 19:12 APPLIQUE CUTTER Pain Assessment Pain Symptoms : No MANAN RAMÍREZ RN - 07/13/2016 19:12 APPLIQUE CUTTER Respiratory Airway : Patent Respirations : Unlabored Respiratory Pattern : Regular MANAN RAMÍREZ RN - 07/13/2016 19:12 APPLIQUE CUTTER Cardiovascular Heart Rhythm : Regular Skin Color : Normal for ethnicity Skin Description : Dry Skin Temperature : Warm MANAN RAMÍREZ RN - 07/13/2016 19:12 APPLIQUE CUTTER Neurological Last Well Time Known : Not applicable Level of Consciousness : Alert Orientation : Oriented x 3 Characteristics of Speech : Appropriate for age MANAN RAMÍREZ RN - 07/13/2016 19:12 APPLIQUE CUTTER ED Psychosocial Affect/Behavior : Calm Domestic Abuse Concerns : None Behavioral Health Screen/Safety Assmt : No MANAN RAMÍREZ RN - 07/13/2016 19:12 APPLIQUE CUTTER Gastrointestinal Nutrition ED : Adequate MANAN RAMÍREZ RN - 07/13/2016 19:12 APPLIQUE CUTTER Musculoskeletal Fall Prevention Education Provided : MANAN RUIZ RN - 07/13/2016 19:12 APPLIQUE CUTTER Social Habits Exposure to Tobacco Smoke : Care provider denies smoking in home, Other: never Smoking Status : Never smoker Tobacco 2A : No Tobacco Use/Currently Using : No Tobacco Use/Last 30 Days : No Tobacco Use/Last 12 months : No MANAN RAMÍREZ RN - 07/13/2016 19:12 APPLIQUE CUTTER Alcohol Use Grid Alcohol Use : No MANAN RAMÍREZ RN - 07/13/2016 19:12 APPLIQUE CUTTER Recreational Drug Use Grid Drug Use : None MANAN RAMÍREZ RN - 07/13/2016 19:12 APPLIQUE CUTTER Source: [facility] POWERCHART Document Id: [id number] APPLIQUE CUTTER!45 IQUE CUTTER Manan Ramírez R.N. - 07/13/2016 7:10 PM CST ED Triage Assessment Document Has Been Updated ED Triage Assessment Entered On: 07/13/2016 19:12 APPLIQUE CUTTER Performed On: 07/13/2016 19:10 APPLIQUE CUTTER by MANAN RAMÍREZ RN Reason For Visit (As Of: 07/13/2016 19:12:45 APPLIQUE CUTTER) Problems(Active) BPH without urinary obstruction (ICD-9-CM :600.00 ) Name of Problem: BPH without urinary obstruction; Recorder: STEVE ANDREA APRN, CNP; Confirmation: Confirmed ; Classification: Medical ; Code: 600.00 ; Contributor System: StatzupChart ; Last Updated: 02/15/2010 10:00 CDT ; Life Cycle Date: 02/15/2010 ; Life Cycle Status: Active ; Responsible Provider: STEVE ANDREA APRN, CNP; Vocabulary: ICD-9-CM ; Comments: 09/30/2013 11:46 - ANOOP QUEVEDO LPN onset unknown DM II (or NOS), uncontrolled (ICD-9-CM :250.02 ) Name of Problem: DM II (or NOS), uncontrolled ; Onset Date: 12/28/2009 ; Recorder: STEVE ANDREA APRN, CNP; Confirmation: Confirmed ; Classification: Medical ; Code: 250.02 ; Contributor System: StatzupChart ; Last Updated: 07/24/2011 10:45 APPLIQUE CUTTER ; Life Cycle Date: 12/05/2010 ; Life Cycle Status: Active ; Responsible Provider: STEVE ANDREA APRN, CNP; Vocabulary: ICD-9-CM Eczema (ICD-9-CM :692.9 ) Name of Problem: Eczema ; Recorder: STEVE ANDREA APRN, CNP; Confirmation: Confirmed ; Classification: Medical ; Code: 692.9 ; Contributor System: PowerChart ; Last Updated: 01/25/2014 16:29 CDT ; Life Cycle Date: 09/05/2010 ; Life Cycle Status: Active ; Responsible Provider: STEVE ANDREA APRN, CNP; Vocabulary: ICD-9-CM ; Comments: 09/30/2013 11:47 - ANOOP QUEVEDO Abby ZURITA onset unknown Erectile dysfunction* (ICD-9-CM :607.84 ) Name of Problem: Erectile dysfunction* ; Recorder: STEVE ANDREA APRN, CNP; Confirmation: Confirmed ; Classification: Medical ; Code: 607.84 ; Contributor System: PowerChart ; Last Updated: 12/28/2009 9:40 CDT ; Life Cycle Date: 12/28/2009 ; Life Cycle Status: Active ; Responsible Provider: STEVE ANDREA APRN, CNP; Vocabulary: ICD-9-CM ; Comments: 09/30/2013 11:46 - ANOOP QUEVEDO Abby HIGUERAN onset unknown Flutter Atrial NOS (ICD-9-CM :427.32 ) Name of Problem: Flutter Atrial NOS ; Recorder: KEVIN KILGORE MD; Confirmation: Confirmed ; Classification: Medical ; Code: 427.32 ; Contributor System: PowerChart ; Last Updated: 07/29/2014 7:02 APPLIQUE CUTTER ; Life Cycle Status: Active ; Responsible Provider: KEVIN KILGORE MD; Vocabulary: ICD-9-CM Flutter Atrial NOS (ICD-9-CM :427.32 ) Name of Problem: Flutter Atrial NOS ; Recorder: JOSIE CASTANEDA LPN, RT; Confirmation: Confirmed ; Classification: Medical ; Code: 427.32 ; Contributor System: PowerChart ; Last Updated: 01/04/2015 10:57 CDT ; Life Cycle Status: Active ; Vocabulary: ICD-9-CM Fracture Closed Radial head (ICD-9-CM :813.05 ) Name of Problem: Fracture Closed Radial head ; OnsetDate: 09/29/2012 ; Recorder: STEVE ANDREA APRN, CNP; Confirmation: Confirmed ; Classification: Medical ; Code: 813.05 ; Contributor System: PowerChart ; Last Updated: 09/30/2012 15:06 APPLIQUE CUTTER ; Life Cycle Date: 09/30/2012 ; Life Cycle Status: Active ; Responsible Provider: STEVE ANDREA APRN, CNP; Vocabulary: ICD-9-CM ; Comments: 09/30/2012 15:06 - STEVE ANDREA APRN, CNP left Genital warts (ICD-9-CM :078.19 ) Name of Problem: Genital warts ; Recorder: MARILUZ FRAGA MD; Confirmation: Confirmed ; Classification: UPDATE NEEDED ; Code: 078.19 ; Contributor System: [employer]uk[employer]; Last Updated: 11/05/2015 4:20 APPLIQUE CUTTER ; Life Cycle Date: 02/11/2013 ; Life Cycle Status: Active ; Responsible Provider: MARILUZ FRAGA MD; Vocabulary: ICD-9-CM ; Comments: 09/30/2013 11:47 - ANOOP QUEVEDO LPN onset unknown Hyperlipidemia (ICD-9-CM :272.4 ) Name of Problem: Hyperlipidemia ; Onset Date: 12/28/2009 ; Recorder: STEVE ANDREA APRN, CNP; Confirmation: Confirmed ; Classification: Medical ; Code: 272.4 ; Last Updated: 12/28/2009 9:39 CDT ; Life Cycle Status: Active ; Responsible Provider: STEVE ANDREA APRN, CNP; Vocabulary: ICD-9-CM Hypertension essential, NOS (ICD-9-CM :401.9 ) Name of Problem: Hypertension essential, NOS ; Onset Date: 12/28/2009 ; Recorder: STEVE ANDREA APRN, CNP; Confirmation: Confirmed ; Classification: Medical ; Code: 401.9 ; Last Updated: 12/28/2009 9:39 CDT ; Life Cycle Status: Active ; Responsible Provider: STEVE ANDREA APRN, CNP; Vocabulary: ICD-9-CM Intertrigo. (ICD-9-CM :695.89 ) Name of Problem: Intertrigo. ; Onset Date: 07/14/2012 ; Recorder: MARILUZ FRAGA MD; Confirmation: Confirmed ; Classification: UPDATE NEEDED ; Code: 695.89 ; Last Updated: 07/14/2012 14:36 APPLIQUE CUTTER ; Life Cycle Status: Active ; Responsible Provider: MARILUZ FRAGA MD; Voc abulary: ICD-9-CM Morbid Obesity (BMI > 40) (V85.4) (ICD-9-CM :278.01 ) Name of Problem: Morbid Obesity (BMI > 40) (V85.4) ; Onset Date: 04/04/2013 ; Recorder: TIERRA BAILEY; Confirmation: Confirmed ; Classification: Medical ; Code: 278.01 ; Last Updated: 04/04/2013 15:42 CDT ; Life Cycle Status: Active ; Responsible Provider: TIERRA BAILEY; Vocabulary: ICD-9-CM Obesity NOS (ICD-9-CM :278.00 ) Name of Problem: Obesity NOS ; Recorder: STEVE ANDREA APRN PANEL MACHINE SETTER; Confirmation: Confirmed ; Classification: Medical ; Code: 278.00 ; Contributor System: PowerChart ; Last Updated: 09/05/2010 9:56 APPLIQUE CUTTER ; Life Cycle Date: 09/05/2010 ; Life Cycle Status: Active ; Responsible Provider: STEVE ANDREA APRN PANEL MACHINE SETTER; Vocabulary: ICD-9-CM ; Comments: 09/30/2013 11:ANOOP ISAAC LPN onset unknown 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 (ICD-9-CM :110.3 ) Name of Problem: Tinea cruris. ; Recorder: MARILUZ FRAGA MD; Confirmation: Confirmed ; Classification: Medical ; Code: 110.3 ; Contributor System: StatzupChart ; Last Updated: 06/01/2013 9:06 CDT ; Life Cycle Date: 06/01/2013 ; Life Cycle Status: Active ; Responsible Provider: MARILUZ FRAGA MD; Vocabulary: ICD-9-CM ; Comments: 09/30/2013 11:ANOOP ISAAC RLJACK onset unknown Tinea pedis* (ICD-9-CM :110.4 ) Name of Problem: Tinea pedis* ; Recorder: MARILUZ FRAGA MD; Confirmation: Confirmed ; Classification: Medical ; Code: 110.4 ; Contributor System: [employer]ukuku ; Last Updated: 02/02/2014 8:24 CDT ; Life Cycle Date: 06/01/2013 ; Life Cycle Status: Active ; Responsible Provider: MARILUZ FRAGA MD; Vocabulary: ICD-9-CM ; Comments: 09/30/2013 11:ANOOP ISAAC 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 onset unknown Ulcer of skin NOS (ICD-9-CM :707.9 ) Name of Problem: Ulcer of skin NOS ; Recorder: HALEIGH SCHULTZ APRN, CNP; Confirmation: Confirmed ; Classification: UPDATE NEEDED ; Code: 707.9 ; Contributor System:StatzupChart ; Last Updated: 09/18/2010 8:25 APPLIQUE CUTTER ; Life Cycle Date: 09/18/2010 ; Life Cycle Status: Active ; Responsible Provider: HALEIGH SCHULTZ APRN, CNP; Vocabulary: ICD-9-CM ; Comments: 09/30/2013 11:ANOOP ISAAC SO[employer]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 onset unknown Unspecified Adjustment Reaction (ICD-9-CM :309.9 ) Name of Problem: Unspecified Adjustment Reaction ; Onset Date: 05/05/2013 ; Confirmation: Confirmed ; Classification: Medical ; Code: 309.9 ; Contributor System: [facility]X_PR_UPLOAD ; Last Updated: 12/03/2013 18:36 CDT ; Life Cycle Status: Active ; Vocabulary: ICD-9-CM ; Comments: - Unspecified adjustment reaction Urge Incontinence (ICD-9-CM :788.31 ) Name of Problem: Urge Incontinence ; Recorder: STEVE ANDREA CNP; Confirmation: Confirmed ; Classification: Medical ; Code: 788.31 ; Contributor System: [employer]ukuku ; Last Updated: 02/20/2010 8:39 CDT ; Life Cycle Date: 02/20/2010 ; Life Cycle Status: Active; Responsible Provider: STEVE ANDREA APRN, CNP; Vocabulary: ICD-9-CM ; Comments: 09/30/2013 11:46 ANOOP GONZALEZ Abby HIGUERAN onset unknown Diagnoses(Active) Rash Date: 07/13/2016 ; Diagnosis Type: Reason For Visit ; Confirmation: Complaint of ; Clinical Dx:Rash ; Classification: Medical ; Clinical Service: Emergency medicine ; Code: PNED ; Probability: 0 ; Diagnosis Code: [id number] Triage Chief Complaint Description : Pt comes in to ER with c/o of a rash to right lower abdomen and just want a picture taken of it for another Dr. Information Given By : Patient Present in Room During Exam/Procedure : Alone Mode of Arrival ED : Private vehicle, Ambulatory Track : Medical Languages : [place] Citizen Vital Signs Assessed : Yes Treatments Prior to Arrival : None Is Patient Female and 13-50 no hysterectomy : No MANAN RAMÍREZ RN - 07/13/2016 19:10 APPLIQUE CUTTER Vital Signs Temperature Core : 36.4 DegC(Converted to: 97.5 DegF) (LOW) Peripheral Pulse Rate : 37 /min (<LLOW) Respiratory Rate : 18 /min Systolic Blood Pressure : 144 mmHg (HI) Diastolic Blood Pressure : 71 mmHg NIBP Mean : 95 mmHg SpO2 : 100 % MANAN RAMÍREZ RN - 07/13/2016 19:10 APPLIQUE CUTTER Pain Assessment Pain Symptoms : No MANAN RAMÍREZ RN - 07/13/2016 19:10 APPLIQUE CUTTER Comfort Measures Comfort Measures Grid Rest : Yes MANAN RAMÍREZ RN - 07/13/2016 19:10 APPLIQUE CUTTER ED Physician Notification Time ED Physician Notification Time : 07/13/2016 19:12 APPLIQUE CUTTER MANAN RAMÍREZ RN - 07/13/2016 19:10 APPLIQUE CUTTER ERIN ERIN Level 1 : No ERIN Level 2 : No ERIN Level 3 : One MANAN RAMÍREZ RN - 07/13/2016 19:10 APPLIQUE CUTTER DCP GENERIC CODE Tracking Acuity : 4 -Less Urgent Tracking Group : [facility] ED MANAN RAMÍREZ RN - 07/13/2016 19:10 APPLIQUE CUTTER Allergy (As Of: 07/13/2016 19:12:45 APPLIQUE CUTTER) Allergies (Active) Cipro Estimated Onset Date: Unspecified ; Created By: STEVE ANDREA APRN, CNP; Reaction Status: Active ; Category: Drug ; Substance: Cipro ; Type: Allergy ; Updated By: STEVE ANDREA APRN, CNP; Reviewed Date: 07/13/2016 19:12 APPLIQUE CUTTER Influenza Virus Vaccine Estimated Onset Date: Unspecified ; Reactions: diarrhea ; Created By: STEVE ANDREA APRN, CNP; Reaction Status: Active ; Category: Drug ; Substance: Influenza Virus Vaccine ; Type: Intolerance ; Updated By: STEVE ANDREA APRN, CNP; Reviewed Date: 07/13/2016 19:12 APPLIQUE CUTTER Immunizations Immunizations Current : Yes MANAN RAMÍREZ RN - 07/13/2016 19:10 APPLIQUE CUTTER Source: [facility] [employer] Document Id: [id number] APPLIQUE CUTTER!35 IQUE CUTTER documented in this encounter Miscellaneous Notes Miscellaneous - Conversion, Historical Provider Ser - 07/13/2016 7:59 PM APPLIQUE CUTTER Coding Summary-Paper Based CODING DATE: 07/19/2016 FINAL [place] [facility] STATUS: * Discharged to Home or Self Care PAYOR: Medicaid ADMIT DX: R21 Rash and other nonspecific skin eruption REASON FOR VISIT DX: R21 Rash and other nonspecific skin eruption FINAL DX: PRINCIPAL: E11.9 Type 2 diabetes mellitus without complications SECONDARY: E78.5 Hyperlipidemia, unspecified I10 Essential (primary) hypertension Z88.1 Allergy status to other antibiotic agents status Z88.7 Allergy status to serum and vaccine status PROCEDURES DOCTOR NAME DATE NOTE: The code number assigned matches the documented diagnosis and / or procedure in the patient's chart. However, the narrative phrase printed from the coding software may appear abbreviated, or result in slightly different terminology. Coded By: BEATRICE MARTÍNEZ Date Saved: 07/19/2016 06:33 am Source: [facility] [employer] Document Id: [id number] Miscellaneous - Lesli Sotomayor R.N. - 07/13/2016 7:58 PM CST Valuables/Belongings Valuables/Belongings Entered On: 07/13/2016 19:58 APPLIQUE CUTTER Performed On: 07/13/2016 19:58 APPLIQUE CUTTER by LESLI SOTOMAYOR RN Valuables/Jd Home Medication Disposition : None brought in with patient LESLI SOTOMAYOR RN - 07/13/2016 19:58 APPLIQUE CUTTER Source: [facility] [employer] Document Id: [id number] APPLIQUE CUTTER!3 IQUE CUTTER Miscellaneous - Lesli Sotomayor R.N. - 07/13/2016 7:03 PM CST Facility Charge Ticket 2.0 11.0 DX Facility Charge Ticket 2.0 11.0 DX Entered On: 07/13/2016 19:59 APPLIQUE CUTTER Performed On: 07/13/2016 19:03 APPLIQUE CUTTER by LESLI SOTOMAYOR RN Facility Charge Ticket 2.0 11.0 DX ED Other Charges : Standard ED Encounter TVL Level Translated RTF : Rash TVL:2 TVL Level for Facility Charge Ticket : Level 2 Arrival Mode Calc : 1 Mode of Arrival ED : Private vehicle, Ambulatory [place] Mode of Arrival Interpreted : Standard [facility] Process Management : None [place] Order Management : None 30 Minutes Critical Care : No Nursing Notes RTF : Triage Forms ED Triage Assessment,07/13/16 19:10,MANAN RAMÍREZ RN Nursing Notes ED Primary Assessment,07/13/16 19:12,MANAN RAMÍREZ RN ED Pain Assessment,07/13/16 19:58,LESLI SOTOMAYOR RN [place] Nursing Assessment : Triage and 1-2 nursing assessments [facility] Disposition : Discharge [place] Total Points with Diagnosis Control : 4 [place] Visit Level : 83724 Level 2 Treatments Prior to Arrival : None LESLI SOTOMAYOR RN - 07/13/2016 19:58 APPLIQUE CUTTER Source: [facility] P[employer]CHART Document Id: [id number] APPLIQUE CUTTER!17 IQUE CUTTER documented in this encounter Plan of Treatment Not on filedocumented as of this encounter Visit Diagnoses Not on filedocumented in this encounter Additional Health Concerns Assessment Noted Time PHQ-9 Depression Total Score: 18 02/14/2013 9:53 AM CD T documented as of this encounter
--- OUTSIDE RECORDS SUMMARY | 2022-07-29 10:51 | XMS_ITS | Encounter Summary ---
:1960 [facility] Address [address] [place] [address] Care Team Providers Name Role Phone Unavailable Primary Care Provider Unavailable Encounter Details Date Type Department Care Team Description 02/22/2016 Hospital Encounter HX [facility] ED Alexandra Barker M.D. [address] [place] [address] 021 (Wo rk) Social History Tobacco Use Types Packs/Day Years Used Date Smoking Tobacco: Never Assessed Sex Assigned at Date Recorded Not on file documented as of this encounter Last Filed Vital Signs Vital Sign Reading Time Taken Comments Blood Pressure 127/79 02/22/2016 6:36 PM CDT Pulse 47 02/22/2016 6:36 PM CDT Temperature - - Respiratory Rate 18 02/22/2016 6:36 PM CDT Oxygen Saturation - - Inhaled Oxygen Concentration - - Weight - - Height 182 cm (5' 11.65) 02/22/2016 6:36 PM CDT Body Mass Index - - documented in this encounter Discharge Summaries Nicky Madrigal RPiliNPili - 02/22/2016 8:10 PM CDT ED Discharge Instructions [address] [address] Name: NOEMÍ LUNA Date of : 1960 12:00 AM Visit Date: 02/22/2016 6:18 PM [facility] Number: [id number] Address: [place] [address] [facility] [id number] Primary Care Provider: KEVIN KILGORE MD IMPORTANT: [facility] in [place] would like to thank you for allowing us to assist you with your healthcare needs. The following includes patient education materials and informationregarding your injury/illness. Diagnosis: Stomatitis NOS Follow-Up Instructions: With: Address: When: KEVIN KILGORE [address] [place] [id number] Business (1) Within As Needed Your Upcoming Appointments: Date Time Location Provider No Appointments found Patient Education Materials: Self-Care for Sore Throats Sore throats occur for many reasons, such as colds, allergies, and infections caused by viruses or bacteria. In any case, your throat becomes red and sore. Your goal for self-care is to reduce your discomfort while giving your throat a chance to heal. Moisten and Soothe Your Throat ?? Try a sip of water first thing after waking up. ?? Keep your throat moist by drinking 6 or more glasses of clear liquids every day. ?? Run a cool-air humidifier in your room overnight. ?? Suck on throat lozenges, cough drops, hard candy, ice chips, or frozen fruit- juice bars. Gargle to Ease Irritation Gargling every hour or two can ease irritation. Try gargling with one of these solutions: ?? 1/4 teaspoon of salt in 1/2 cup of warm water ?? An wnmx-zqv-itdmana anesthetic gargle Use Medication for More Relief Lxrm-ajo-cmjqsnn medication can reduce sore throat symptoms. Ask your pharmacist if you have questions about which medication to use. ?? Ease pain with anesthetic sprays. Aspirin or an aspirin substitute also helps. Remember, never give aspirin to anyone 18 or younger. ?? For sore throats caused by allergies, try antihistamines to block the allergic reaction. ?? Remember: unless a sore throat is caused by a bacterial infection, antibiotics wont help you. Prevent Future Sore Throats ?? Stop smoking or reduce contact with secondhand smoke. Smoke irritates the tender throat lining. ?? Limit contact with pets and with allergy-causing substances such as pollen and mold. ?? When youre around someone with a sore throat or cold, wash your hands frequently to keep viruses or bacteria from spreading. ?? Dont strain your vocal cords. Call Your Doctor If You Have: A temperature over 101.0?F White spots on the throat Great difficulty swallowing Trouble breathing A skin rash Recent exposure to someone else with strep bacteria Severe hoarseness and swollen glands in the neck or jaw ?? [id number] [facility], [address] [place] [address], [place] [address]. All rights reserved. This information is not [...] if you dont have one. Go to [email or web address] and click on Create Your Account. Then, follow the directions to complete the online form. Youll be asked for your [facility] number which you can find at the top of this document. ED Tests and Procedures: Order Status Rapid Strep Confirmation Ordered Strep A Screen Rapid Completed Discharge Prescriptions & Home Medications: Medication/Strength Dose Route Frequency Indications/Special Instructions/Comments/Notes lidocaine topical (Lidocaine Viscous 2% mucous membrane solution) 1 jannie Topical four times a day as needed for mouth sore pain metoprolol (Metoprolol Tartrate 25 mg oral tablet) 12.5 mg Oral two times a day cyanocobalamin (cyanocobalamin 1000 mcg/mL injectable solution) 1,000 mcg Subcutaneous once a month vitamin B12 deficiency calcium carbonate (calcium (as carbonate) 500 mg oral tablet, chewable) 1,000 mg Oral two times a day amLODIPine (amLODIPine 10 mg oral tablet) 5 mg Oral once a day high blood pressure multivitamin with minerals (Flintstones Complete oral tablet, chewable) 1 tab(s) Chewed two times a day simvastatin (simvastatin 40 mg oral tablet) 40 mg Oral once a day (at bedtime) high cholesterol *omeprazole (PriLOSEC 40 mg oral delayed release capsule) 40 mg Oral once a day furosemide (Lasix 40 mg oral tablet) 40 mg Oral once a day Leg Swelling occ extra pill depending on weight/swelling rrallopurinol (allopurinol 300 mg oral tablet) 300 mg Oral once a day kidney stones ferrous sulfate (ferrous sulfate 325 mg (65 mg elemental iron) oral tablet) 325 mg Oral two times a day tadalafil (Cialis 20 mg oral tablet) 20 mg Oral once a day as needed for Erectile dysfunction Take as needed prior to anticipated sexual activity docusate-senna (Senna Plus) 1 tab(s) Oral two times a day * You have [...] arrange a ride home with a responsible alliance party. CARLYLE Contreras ED J , or responsible alliance party have received this information and my questions [...] arrange a ride home with a responsible alliance party. ICARLYLE ED J , or responsible alliance party have received this information and my questions have been answered. I have discussed any challenges I see with this plan with the nurse or physician. Patient Signature or Responsible Libertarian/Relationship Date Time Provider Signature Date Time This document has images extracted. Please consider using [employer] for all your patient education needs. Source: [facility] POWERCHART Document Id: [id number] Nicky Madrigal, R.NPili - 02/22/2016 8:10 PM CDT ED Depart Summary [facility] Emergency Department Clinical Discharge Summary PERSON INFORMATION Name NOEMÍ LUNA Age 55 Years 1960 12:00 AM Sex Male Language Persian PCP KEVIN KILGORE MD Marital Status Visit Id Visit Reason Throat pain - Adult; Throat pain - Adult; Sore Throat Specialty Enc Type Emergency Med Service Emergency Medicine Referred by Track Group [facility] ED Discharge 02/22/2016 8:05 PM Tracking Id [id number] Checkout 02/22/2016 8:05 PM Checkin 02/22/2016 6:18 PM Acuity 4 -Less Urgent Dispo Type * Discharged to Home or Self Care Arrival 02/22/2016 6:18 PM Reg Status Complete LOS 000 01:47 Address: [address] [phone] Comment: PROVIDER INFORMATION Provider Role Provider Contact Time CIERRA BARKER MD ED Provider 02/22/16 18:27 NICKY MADRIGAL VICE PRESIDENT OF NEWS Nurse 02/22/16 18:37 DIAGNOSIS Stomatitis NOS Comment: PATIENT EDUCATION INFORMATION Instructions: Self-Care for Sore Throats Follow up: With: Address: When: KEVIN KILGORE [address] [place] [address] [phone] Business () Within As Needed Source: [facility] POWERCHART Document Id: [id number] documented in this encounter Medications at Time of Discharge Medication Sig Dispensed Refills Start Date End Date PEDIATRIC MULTIVITAMIN Take 4 tablets by 0 2015 NO.76 (FLINTSTONES mouth daily. COMPLETE ORAL) ferrous sulfate 325 mg Take 1 tablet by 0 015 11/24/2017 (65 mg iron) tablet mouth 2 (two) times a day. documented as of this encounter ED Notes Nicky Madrigal, R.N. - 02/22/2016 8:08 PM CDT ED Disposition Summary ED Disposition Summary Entered On: 02/22/2016 20:08 CDT Performed On: 02/22/2016 20:08 CDT by NICKY MADRIGAL RN ED Disposition Summary Printed Discharge Instructions Given to Patient : Yes NICKY MADRIGAL RN - 02/22/2016 20:08 CDT Source: [employer] Document Id: [id number] CDT!3 Nicky Madrigal RAugustine - 02/22/2016 8:08 PM CDT ED Pain Assessment ED Pain Assessment Entered On: 02/22/2016 20:08 CDT Performed On: 02/22/2016 20:08 CDT by NICKY MADRIGAL RN Pain Assessment Pain Symptoms : No NICKY MADRIGAL RN - 02/22/2016 20:08 CDT Source: [employer] Document Id: [id number] CDT!3 Nicky Madrigal R.N. - 02/22/2016 7:40 PM CDT ED Pain Assessment ED Pain Assessment Entered On: 02/22/2016 20:10 CDT Performed On: 02/22/2016 19:40 CDT by NICKY MADRIGAL RN Pain Assessment Pain Symptoms : No NICKY MADRIGAL RN - 02/22/2016 20:09 CDT Comfort Measures Patient Response : Lozenge worked well. Comfort Measures Response : Comfort level increased NICKY MADRIGAL RN - 02/22/2016 20:09 CDT Source: [employer] Document Id: [id number] CDT!6 Nicky Madrigal RAugustine - 02/22/2016 7:22 PM CDT ED Primary Assessment Document Has Been Updated ED Primary Assessment Entered On: 02/22/2016 19:23 CDT Performed On: 02/22/2016 19:22 CDT by NICKY MADRIGAL RN Reason For Visit (As Of: 02/22/2016 19:23:39 CDT) Problems(Active) BPH without urinary obstruction (ICD-9-CM :600.00 ) Name of Problem: BPH without urinary obstruction; Recorder: STEVE ANDREA APRN, CNP; Confirmation: Confirmed ; Classification: Medical ; Code: 600.00 ; Contributor System: PowerChart ; Last Updated: 02/15/2010 10:00 CDT ; [...] System: PowerChart ; Last Updated: 07/24/2011 10:45 PRODUCT SALES ENGINEER ; Life Cycle Date: 12/05/2010 ; Life [...] CNP; Vocabulary: ICD-9-CM ; Comments: 09/30/2013 11:47 ANOOP GONZALEZ LPN onset unknown Erectile dysfunction* (ICD-9-CM :607.84 ) Name of Problem: Erectile dysfunction* ; Recorder: STEVE ANDREA APRN, CNP; Confirmation: Confirmed ; Classification: Medical ; Code: 607.84 ; Contributor System: PowerChart ; Last Updated: 12/28/2009 9:40 CDT ; Life Cycle Date: 12/28/2009 ; Life Cycle Status: Active ; Responsible Provider: STEVE ANDREA APRN, CNP; Vocabulary: ICD-9-CM ; Comments: 09/30/2013 11:46 - QUE[place] ANOOPJHOAN Mora LPN onset unknown Flutter Atrial NOS (ICD-9-CM :427.32 ) Name of Problem: Flutter Atrial NOS ; Recorder: KEVIN KILGORE MD; Confirmation: Confirmed ; Classification: Medical ; Code: 427.32 ; Contributor System: PowerChart ; Last Updated: 07/29/2014 7:02 PRODUCT SALES ENGINEER ; Life Cycle Status: Active ; Responsible [...] System: PowerChart ; Last Updated: 09/30/2012 15:06 PRODUCT SALES ENGINEER ; Life Cycle Date: 09/30/2012 ; Life Cycle Status: Active ; Responsible Provider: STEVE ANDREA APRN, CNP; Vocabulary: ICD-9-CM ; Comments: 09/30/2012 15:06 - STEVE ANDREA APRN, CNP left Genital warts (ICD-9-CM :078.19 ) Name of Problem: Genital warts ; Recorder: MARILUZ FRAGA MD; Confirmation: Confirmed ; Classification: UPDATE NEEDED ; Code: 078.19 ; Contributor System: PowerChart; Last Updated: 11/05/2015 4:20 PRODUCT SALES ENGINEER ; Life Cycle Date: 02/11/2013 ; Life [...] Code: 695.89 ; Last Updated: 07/14/2012 14:36 PRODUCT SALES ENGINEER ; Life Cycle Status: Active ; Responsible [...] System: PowerChart ; Last Updated: 09/05/2010 9:56 PRODUCT SALES ENGINEER ; Life Cycle Date: 09/05/2010 ; Life Cycle Status: Active ; Responsible Provider: STEVE ANDREA APRN NURSE EPIDEMIOLOGIST; Vocabulary: ICD-9-CM ; Comments: 09/30/2013 11:ANOOP ISAAC R BOOT AND SADDLE REPAIR PERSON onset unknown Optic disc cupping (ICD-9-CM :377.14 [...] Medical ; Code: 110.3 ; Contributor System: ECS [employer]uning ; Last Updated: 06/01/2013 9:06 CDT ; Life Cycle Date: 06/01/2013 ; Life Cycle Status: Active ; Responsible Provider: MARILUZ FRAGA MD; Vocabulary: ICD-9-CM ; Comments: 09/30/2013 11:ANOOP ISAAC RLPN onset unknown Tinea pedis* (ICD-9-CM :110.4 ) Name of Problem: Tinea pedis* ; Recorder: MARILUZ FRAGA MD; Confirmation: Confirmed ; Classification: Medical ; Code: 110.4 ; Contributor System: SynkerChart ; Last Updated: 02/02/2014 8:24 CDT ; Life Cycle Date: 06/01/2013 ; Life Cycle Status: Active ; Responsible Provider: MARILUZ FRAGA MD; Vocabulary: ICD-9-CM ; Comments: 09/30/2013 11:ANOOP ISAAC R BOOT AND SADDLE REPAIR PERSON onset unknown Ulcer of skin NOS (ICD-9-CM :707.9 ) Name of Problem: Ulcer of skin NOS ; Recorder: HALEIGH SCHULTZ APRN NURSE EPIDEMIOLOGIST; Confirmation: Confirmed ; Classification: UPDATE NEEDED ; Code: 707.9 ; Contributor System:PowerChart ; Last Updated: 09/18/2010 8:25 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_UPL[facility]AD ; Last Updated: 12/03/2013 18:36 CDT ; Life Cycle Status: Active ; Vocabulary: ICD-9-CM ; Comments: - Unspecified adjustment reaction Urge Incontinence (ICD-9-CM :788.31 ) Name of Problem: Urge Incontinence ; Recorder: STEVE ANDREA CNP; Confirmation: Confirmed ; Classification: Medical ; Code: 788.31 ; Contributor System: E[employer] Tuning ; Last Updated: 02/20/2010 8:39 CDT ; Life Cycle Date: 02/20/2010 ; Life Cycle Status: Active; Responsible Provider: STEVE ANDREA APRN, CNP; Vocabulary: ICD-9-CM ; Comments: 09/30/2013 11:46 - ANOOP QUEVEDO LPN onset unknown Diagnoses(Active) Throat pain - Adult Date: 02/22/2016 ; Diagnosis Type: Reason For Visit ; Confirmation: Confirmed ; Clinical Dx: Throat pain - Adult ; Classification: Medical ; Clinical Service: Emergency medicine ; Code: PNED ; Probability: 0 ; Diagnosis Code: [id number] Throat pain - Adult Date: 02/22/2016 ; Diagnosis Type: Reason For Visit ; Confirmation: Complaint of; Clinical Dx: Throat pain - Adult ; Classification: Medical ; Clinical Service: Non-Specified ; Code: PNED ; Probability: 0 ; Diagnosis Code: [id number] Triage Chief Complaint Description : See Triage Note Mode of Arrival ED : Private vehicle Track : Medical Languages : Persian Treatments Prior to Arrival : None Is Patient Female and 13-50 no hysterectomy : No NICKY MADRIGAL RN - 02/22/2016 19:22 CDT Pain Assessment Pain Symptoms : Yes NICKY MADRIGAL RN - 02/22/2016 19:22 CDT Respiratory Airway : Patent Respirations : Unlabored Respiratory Pattern : Regular NICKY MADRIGAL RN - 02/22/2016 19:22 CDT Cardiovascular Heart Rhythm : Regular Skin Color : Normal for ethnicity Skin Description : Dry Skin Temperature : Warm MANJIT NICKY Murray RN - 02/22/2016 19:22 CDT Neurological Last Well Time Known : Not applicable Level of Consciousness : Alert Orientation : Oriented x 3 Characteristics of Speech : Appropriate for age NICKY MADRIGAL RN - 02/22/2016 19:22 CDT ED Psychosocial Affect/Behavior : Calm, Cooperative, Appropriate Domestic Abuse Concerns : None Behavioral Health Screen/Safety Assmt : No NICKY MADRIGAL RN - 02/22/2016 19:22 CDT Gastrointestinal Nutrition ED : Adequate NICKY MADRIGAL RN - 02/22/2016 19:22 CDT Musculoskeletal Fall Prevention Education Provided : NICKY KELLER RN - 02/22/2016 19:22 CDT Social Habits Exposure to Tobacco Smoke : Care provider denies smoking in home, Other: never Smoking Status : Never smoker Tobacco 2A : No Tobacco Use/Currently Using : No Tobacco Use/Last 30 Days : No Tobacco Use/Last 12 months : No NICKY MADRIGAL RN - 02/22/2016 19:22 CDT Alcohol Use Grid Alcohol Use : No NICKY MADRIGAL RN - 02/22/2016 19:22 CDT Recreational Drug Use Grid Drug Use : None NICKY MADRIGAL RN - 02/22/2016 19:22 CDT Source: [facility] OneCard Document Id: [id number] CDT!45 Cierra Barker M.D. - 02/22/2016 7:06 PM CDT Throat pain - Adult Patient: NOEMÍ LUNA Age: 55 years Sex: Male : 1960 Author: CIERRA BARKER MD Attachments: None Associated Diagnosis: Stomatitis NOS Basic Information Time seen: Date & time 02/22/2016 19:06:00. History source: Patient. Arrival mode: Private vehicle, walking. History limitation: None. Additional information: Chief Complaint from Nursing Triage Note : Chief Complaint Description 02/22/2016 18:28 CDT Chief Complaint Description Sore Throat for 1 week. Unable to eat or drink for approx. can take sips of liquids and clear liq. Slight discomfort/dull pain in chest. patient believes it could be from not eating anything. . History of Present Illness The patient presents with throat pain. The onset was 7 days ago. The course/duration of symptoms is constant. Location: Pharynx mouth. The character of symptoms is pain and redness. The degree at present is moderate. The exacerbating factor is swallowing. The relieving factor is none. Risk factors consist of gastroesophageal reflux disease. Prior episodes: rare. Associated symptoms: denies fever, denies chills, denies nausea and denies vomiting. He has had difficulty swallowing both solids and liquids for a week due to pain, but has been able to work. He has not had a fever or cough, and no rash. He has not been exposed to strep throat. He is not able to tolerate salty or citrusy foods due to a burning pain in his mouth. Review of Systems Constitutional symptoms: No fever. Skin symptoms: No rash. Eye symptoms: Negative except as documented in HPI. ENMT symptoms: No nasal congestion or no sinus pain. Respiratory symptoms: No cough. Cardiovascular symptoms: No chest pain. Gastrointestinal symptoms: No nausea or no vomiting. Musculoskeletal symptoms: Negative except as documented in HPI. Neurologic symptoms: No headache. Hematologic/Lymphatic symptoms: Bleeding tendency negative. Additional review of systems information: All other systems reviewed and otherwise negative. Health Status Allergies: Allergic Reactions (Selected) Severity Not Documented Cipro- No reactions were documented. Nonallergic Reactions (Selected) Severity Not Documented Influenza Virus Vaccine- Diarrhea.. Medications: (Selected) Prescriptions Prescribed Cialis 20 mg oral tablet: 20 mg, 1 tab(s), PO, Daily, PRN: Erectile dysfunction, 6 tab(s), 11 Refill(s) Flintstones Complete oral tablet, chewable: 1 tab(s), Chewed, 2xDay, 180 tab(s), 1 Refill(s) Lasix 40 mg oral tablet: 40 mg, 1 tab(s), PO, Daily, Leg Swelling occ extra pill depending on weight/swelling, 180 tab(s), 1 Refill(s) Lidocaine Viscous 2% mucous membrane solution: 1 jannie, Topical, 4xDay, PRN: mouth sore pain, 100 mL, 0 Refill(s) Metoprolol Tartrate 25 mg oral tablet: 12.5 mg, 0.5 tab(s), PO, 2xDay, for 90 day(s), 90 tab(s), 0 Refill(s) PriLOSEC 40 mg oral delayed release capsule: 40 mg, 1 cap(s), PO, Daily, 90 cap(s), 1 Refill(s) allopurinol 300 mg oral tablet: 300 mg, 1 tab(s), PO, Daily, kidney stones, 90 tab(s), 1 Refill(s) amLODIPine 10 mg oral tablet: 5 mg, 0.5 tab(s), PO, Daily, high blood pressure, 45 tab(s), 1 Refill(s) calcium (as carbonate) 500 mg oral tablet, chewable: 1,000 mg, 2 tab(s), PO, 2xDay, 120 tab(s), 3 Refill(s) cyanocobalamin 1000 mcg/mL injectable solution: 1,000 mcg, 1 mL, Subcut., Monthly, vitamin B12 deficiency, 4 mL, 3 Refill(s) ferrous sulfate 325 mg (65 mg elemental iron) oral tablet: 325 mg, 1 tab(s), PO, 2xDay, 60 tab(s), 0Refill(s) simvastatin 40 mg oral tablet: 40 mg, 1 tab(s), PO, Bedtime, high cholesterol, 90 tab(s), 3 Refill(s) Documented Medications Documented Senna Plus: 1 tab(s), PO, 2xDay. Immunizations: Include Immunizations Immunizations reviewed. , tetanus up to date. Past Medical/ Family/ Social History Medical history: Active Fracture Closed Radial head (813.05): Onset on 09/29/2012 at 52 years. Comments: 09/30/2012 PRODUCT SALES ENGINEER 15:06 PRODUCT SALES ENGINEER - STEVE ANDREA APRN NURSE EPIDEMIOLOGIST left Genital warts (078.19) Comments: 09/30/2013 PRODUCT SALES ENGINEER 11:47 PRODUCT SALES ENGINEER ANOOP GONZALEZ LPN onset unknown Tinea pedis* (110.4) Comments: 09/30/2013 PRODUCT SALES ENGINEER 11:47 PRODUCT SALES ENGINEER ANOOP GONZALEZ BOOT AND SADDLE REPAIR PERSON onset unknown Tinea cruris. (110.3) Comments: 09/30/2013 PRODUCT SALES ENGINEER 11:47 PRODUCT SALES ENGINEER ANOOP GONZALEZ BOOT AND SADDLE REPAIR PERSON onset unknown. Surgical history: Gastric bypass ([id number]) on 11/19/2014 at 54 Years. Cystoscopy ([id number]) on 12/26/2009 at 49 Years. Comments: 02/20/2010 08:36 - STEVE ANDREA NURSE EPIDEMIOLOGIST [place] [facility] / normal PSA, TOTAL SCREENING ([id number]) on 12/26/2009 at 49 Years. Comments: 02/20/2010 08:38 - STEVE ANDREA NURSE EPIDEMIOLOGIST Done at [place] / Result: 1.55 Discectomy ([id number]) on 02/19/1989 at 28 Years. Comments: 12/28/2009 09:38 STEVE WELSH CNP lumbar L4-L5. Family history: Diabetes mellitus Mother () Hypertension Father Myocardial infarction Mother () Kidney disease Mother () Congestive heart failure Father . Social history: Occupation: Employed, Family/social situation: . Problem list: All Problems Optic disc cupping / 377.14 / Confirmed BPH without urinary obstruction / 600.00 / Confirmed Unspecified Adjustment Reaction / 309.9 / Confirmed DM II (or NOS), uncontrolled / 250.02 / Confirmed Eczema / 692.9 / Confirmed Flutter Atrial NOS / 427.32 / Confirmed Flutter Atrial NOS / 427.32 / Confirmed Fracture Closed Radial head / 813.05 / Confirmed Genital warts / 078.19 / Confirmed Hyperlipidemia / 272.4 / Confirmed Hypertension essential, NOS / 401.9 / Confirmed Erectile dysfunction* / 607.84 / Confirmed Intertrigo. / 695.89 / Confirmed Morbid Obesity (BMI > 40) (V85.4) / 278.01 / Confirmed Obesity NOS / 278.00 / Confirmed Tinea cruris. / 110.3 / Confirmed Tinea pedis* / 110.4 / Confirmed Urge Incontinence / 788.31 / Confirmed Ulcer of skin NOS / 707.9 / Confirmed Inactive: Pyelonephritis / 590.80 Inactive: Kidney stone / 592.0 Canceled: Diabetes mellitus type II / 250.00 Canceled: Renal stone / 592.0. Physical Examination Vital Signs: Vital Signs 02/22/2016 18:36 CDT Temperature Core 37.1 DegC Peripheral Pulse Rate 47 /min <LLOW Respiratory Rate 18 /min SpO2 100 % Systolic Blood Pressure 127 mmHg Diastolic Blood Pressure 79 mmHg , Measurements 02/22/2016 18:36 CDT Height 182 cm Estimated Weight 78 kg . General: Alert, no acute distress and Very thin man, appears older than stated age. Skin: Warm and dry. Head: Normocephalic. Neck: Supple and mild anterior cervical lymph node tenderness, not enlarged. Eye: Normal conjunctiva. Ears, nose, mouth and throat: Tympanic membranes clear, Mouth: Moderate, soft palate, erythema and Throat: Moderate, pharynx, erythema. Respiratory: Respirations are non-labored. Cardiovascular: Normal peripheral perfusion and No edema. Gastrointestinal: Non distended. Back: Normal alignment. Neurological: Normal motor observed and normal speech observed. Lymphatics: No lymphadenopathy. Psychiatric: Cooperative. Medical Decision Making Differential Diagnosis:Viral pharyngitis, streptococcal pharyngitis, viral syndrome, stomatitis. Documents reviewed:Emergency department nurses' notes, prior records. OrdersLaunch Orders Pharmacy: Cepacol Sore Throat (Order Processing): 1 lozenge(s), PO, Once, [facility] Orders Pharmacy: Cepacol Sore Throat (Order Processing): 1 lozenge(s), PO, Once. Results review:Lab results : Lab View 02/22/2016 18:50 CDT Strep A Screen Rapid Review . Reexamination/ Reevaluation Relief of discomfort with Cepacol. Impression and Plan Diagnosis Stomatitis NOS (Discharge, Emergency medicine, Medical) Plan Condition: Improved. Disposition: Medically cleared, Discharged: to home. Prescriptions: Viscous lidocaine 2%, may mix with antacid of choice 1:1 and swish and swallow prn pain. Patient was given the following educational materials: Self-Care for Sore Throats. Follow up with: KEVIN Qiu As Needed. Counseled: Patient, Regarding diagnosis, Regarding diagnostic results, Regarding treatment plan, Patient indicated understanding of instructions. Electronically Signed By: CIERRA BARKER MD On: 02/22/2016 09:50 PM Modified by and Electronically Signed by: CIERRA BARKER MD On: 02/22/2016 07:46 PM Source: [facility] POWERCHART Document Id: [id number]} Nicky Madrigal, R.N. 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 ; Life Cycle Date: 12/05/2010 ; Life [...] Vocabulary: ICD-9-CM ; Comments: 09/30/2013 11:47 - QUEVEDO, ANOOPVOLODYMYR Mora LPN onset unknown Erectile dysfunction* (ICD-9-CM :607.84 ) Name of Problem: Erectile dysfunction* ; Recorder: STEVE ANDREA APRN, CNP; Confirmation: Confirmed ; Classification: Medical ; Code: 607.84 ; Contributor System: PowerChart ; Last Updated: 12/28/2009 9:40 CDT ; Life Cycle Date: 12/28/2009 ; Life Cycle Status: Active ; Responsible Provider: STEVE ANDREA APRN, CNP; Vocabulary: ICD-9-CM ; Comments: 09/30/2013 11:46 - ROHIT QUEVEDOVOLODYMYR Mora LPN onset unknown Flutter Atrial NOS (ICD-9-CM :427.32 ) Name of Problem: Flutter Atrial NOS ; Recorder: KEVIN KILGORE MD; Confirmation: Confirmed ; Classification: Medical ; Code: 427.32 ; Contributor System: PowerChart ; Last Updated: 07/29/2014 7:02 PRODUCT SALES 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 ; Life Cycle Status: Active ; Responsible [...] System: PowerChart ; Last Updated: 09/30/2012 15:06 PRODUCT SALES 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 ; Life Cycle Date: 09/30/2012 ; Life Cycle Status: Active ; Responsible Provider: STEVE ANDREA APRN, CNP; Vocabulary: ICD-9-CM ; Comments: 09/30/2012 15:06 - STEVE ANDREA APRN, CNP left Genital warts (ICD-9-CM :078.19 ) Name of Problem: Genital warts ; Recorder: MARILUZ FRAGA MD; Confirmation: Confirmed ; Classification: UPDATE NEEDED ; Code: 078.19 ; Contributor System: [employer]; Last Updated: 11/05/2015 4:20 PRODUCT SALES 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 ; Life Cycle Date: 02/11/2013 ; Life [...] Code: 695.89 ; Last Updated: 07/14/2012 14:36 PRODUCT SALES ENGINEER ; Life Cycle Status: Active ; Responsible [...] Obesity NOS ; Recorder: STEVE ANDREA APRN NURSE EPIDEMIOLOGIST; Confirmation: Confirmed ; Classification: Medical ; Code: 278.00 ; Contributor System: PowerChart ; Last Updated: 09/05/2010 9:56 PRODUCT SALES 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 ; Life Cycle Date: 09/05/2010 ; Life Cycle Status: Active ; Responsible Provider: STEVE ANDREA APRN NURSE EPIDEMIOLOGIST; Vocabulary: ICD-9-CM ; Comments: 09/30/2013 11:47 ANOOP GONZALEZ [employer] REPA[employer] PERSON onset unknown Optic disc cupping (ICD-9-CM :377.14 [...] Medical ; Code: 110.3 ; Contributor System: PowerChart ; Last Updated: 06/01/2013 9:06 CDT ; Life Cycle Date: 06/01/2013 ; Life Cycle Status: Active ; Responsible Provider: MARILUZ FRAGA MD; Vocabulary: ICD-9-CM ; Comments: 09/30/2013 11:47 ANOOP GONZALEZ RLPN onset unknown Tinea pedis* (ICD-9-CM :110.4 ) Name of Problem: Tinea pedis* ; Recorder: MARILUZ FRAGA MD; Confirmation: Confirmed ; Classification: Medical ; Code: 110.4 ; Contributor System: PowerChart ; Last Updated: 02/02/2014 8:24 CDT ; Life Cycle Date: 06/01/2013 ; Life Cycle Status: Active ; Responsible Provider: MARILUZ FRAGA MD; Vocabulary: ICD-9-CM ; Comments: 09/30/2013 11:47 ANOOP GONZALEZ LPN onset unknown Ulcer of skin NOS (ICD-9-CM :707.9 ) Name of Problem: Ulcer of skin NOS ; Recorder: HALEIGH SCHULTZ APRN, CNP; Confirmation: Confirmed ; Classification: UPDATE NEEDED ; Code: 707.9 ; Contributor System:[employer] ; Last Updated: 09/18/2010 8:25 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AD ; Last Updated: 12/03/2013 18:36 CDT ; Life Cycle Status: Active ; Vocabulary: ICD-9-CM ; Comments: - Unspecified adjustment reaction Urge Incontinence (ICD-9-CM :788.31 ) Name of Problem: Urge Incontinence ; Recorder: STEVE ANDREA CNP; Confirmation: Confirmed ; Classification: Medical ; Code: 788.31 ; Contributor System: [employer]uning ; Last Updated: 02/20/2010 8:39 CDT ; Life Cycle Date: 02/20/2010 ; Life Cycle Status: Active; Responsible Provider: STEVE ANDREA APRN, CNP; Vocabulary: ICD-9-CM ; Comments: 09/30/2013 11:46 - ANOOP QUEVEDO LPN onset unknown Diagnoses(Active) Throat pain - Adult Date: 02/22/2016 ; Diagnosis Type: Reason For Visit ; Confirmation: Complaint of; Clinical Dx: Throat pain - Adult ; Classification: Medical ; Clinical Service: Non-Specified ; Code: PNED ; Probability: 0 ; Diagnosis Code: [id number] Triage Chief Complaint Description : Sore Throat for 1 week. Unable to eat or drink for approx. can take sips of liquids and clear liq. Slight discomfort/dull pain in chest. patient believes it could be from not eating anything. Information Given By : Patient Present in Room During Exam/Procedure : Alone Mode of Arrival ED : Private vehicle Track : Medical Languages : Persian Treatments Prior to Arrival : None Is Patient Female and 13-50 no hysterectomy : No NICKY MADRIGAL Terri RN - 02/22/2016 18:28 CDT Pain Assessment Pain Symptoms : Yes NCIKY MADRIGAL Terri RN - 02/22/2016 18:28 CDT Pain Scale Pain Scale Verbal 0-10 : Open SUNILLUKENICKY Terri RN - 02/22/2016 18:28 CDT Pain Pain Assessment Grid Pain 1 Pain 2 Location : Chest Throat Intensity : 1 5 Time Pattern : Acute, Intermittent Acute, Constant Onset : Gradual Gradual Quality : Dull Dull Aggravating Factors : None None Alleviating Factors : None None SUNILLUKE NICKY Murray RN - 02/22/2016 18:28 CDT MANJIT NICKY Terri RN - 02/22/2016 18:28 CDT ED Physician Notification Time ED Physician Notification Time : 02/22/2016 18:34 CDT SUNILLUKEMARGOZHANG Murray RN - 02/22/2016 18:28 CDT ERIN ERIN Level 1 : No ERIN Level 2 : No ERIN Level 3 : One NICKY MADRIGAL Terri RN - 02/22/2016 18:28 CDT DCP GENERIC CODE Tracking Acuity : 4 -Less Urgent Tracking Group : [facility] ED NICKY MADRIGAL Terri RN - 02/22/2016 18:28 CDT Allergy (As Of: 02/22/2016 18:36:49 CDT) Allergies (Active) Cipro Estimated Onset Date: Unspecified ; Created By: STEVE ANDREA CNP; Reaction Status: Active ;Category: Drug ; Substance: Cipro ; Type: Allergy ; Updated By: STEVE ANDREA CNP; Reviewed Date: 02/22/2016 18:35 CDT Influenza Virus Vaccine Estimated Onset Date: Unspecified ; Reactions: diarrhea ; Created By: STEVE ANDREA CNP; Reaction Status: Active ; Category: Drug ; Substance: Influenza Virus Vaccine ; Type: Intolerance ; Updated By: STEVE ANDREA CNP; Reviewed Date: 02/22/2016 18:35 CDT ID Screen Drug Resistant Organism : No SUNILNICKY BUTLER RN - 02/22/2016 18:28 CDT Immunizations Immunizations Current : Yes Influenza : Other: Allergic NICKY MADRIGAL RN - 02/22/2016 18:28 CDT Source: [facility] OneCard Document Id: [id number] CDT!46 documented in this encounter Miscellaneous Notes Miscellaneous - Shirlene Dominguez R.N. - 03/06/2016 4:39 PM CDT call From: SHIRLENE DOMINGUEZ RN Sent: 03/06/2016 16:39:26 CDT Subject: call Responding to pt request to stop taking medication. Spoke to pt, advised visit again. Reminded pt that he has has been given the message several times to follow up with his provider. Pt indicates he doesn't have time to make an appt. Reminded him that his provider would like him to follow up before making changes. Pt hung up. Source: [facility] OneCard Document Id: [id number] Miscellaneous - Shirlene Dominguez R.N. - 02/26/2016 1:30 PM CDT Tums From: SHIRLENE DOMINGUEZ RN Sent: 02/26/2016 13:30:48 CDT Subject: Tums Pt wants only Forde flavored Tums, would have to be extra strength. Discussed with provider, pt has instructions on taking and can not change script amount without visit to discuss. Source: [facility] OneCard Document Id: [id number] Miscellaneous - Nicky Madrigal R.N. - 02/22/2016 8:08 PM CDT Valuables/Belongings Valuables/Belongings Entered On: 02/22/2016 20:08 CDT Performed On: 02/22/2016 20:08 CDT by NICKY MADRIGAL RN Valuables/Belongings Home Medication Disposition : None brought in with patient NICKY MADRIGAL RN - 02/22/2016 20:08 CDT Source: [facility] OneCard Document Id: [id number] CDT!3 Miscellaneous - Conversion, Historical Provider Ser - 02/22/2016 8:05 PM CDT Coding Summary-Paper Based CODING DATE: 02/29/2016 FINAL [facility] STATUS: * Discharged to Home or Self Care PAYOR: Medicaid ADMIT DX: R07.0 Pain in throat REASON FOR VISIT DX: R07.0 Pain in throat FINAL DX: PRINCIPAL: K12.1 Other forms of stomatitis SECONDARY: E11.9 Type 2 diabetes mellitus without complications I10 Essential (primary) hypertension E78.5 Hyperlipidemia, unspecified Z88.7 Allergy status to serum and vaccine status Z88.1 Allergy status to other antibiotic agents status PROCEDURES DOCTOR NAME DATE NOTE: The code number assigned matches the documented diagnosis and / or procedure in the patient's chart. However, the narrative phrase printed from the coding software may appear abbreviated, or result in slightly different terminology. Coded By: KENIA VERGARA Date Saved: 02/29/2016 02:01 pm [facility] Document Id: [id number] Miscellaneous - Nicky Madrigal, R.N. - 02/22/2016 8:05 PM CDT Facility Charge Ticket 2.0 11.0 DX Facility Charge Ticket 2.0 11.0 DX Entered On: 02/22/2016 20:09 CDT Performed On: 02/22/2016 20:05 CDT by NICKY MADRIGAL RN Facility Charge Ticket 2.0 11.0 DX ED Other Charges : Standard ED Encounter TVL Level Translated RTF : Throat pain - Adult, Throat pain - Adult TVL:2 TVL Level for Facility Charge Ticket : Level 2 Arrival Mode Calc : 1 Mode of Arrival ED : Private vehicle [facility] Mode of Arrival Interpreted : Standard [facility] Process Management : None Order Management RTF : Laboratory Rapid Strep Screen,02/22/16 19:20,CIERRA BARKER MD Completed Rapid Strep Confirmation,02/22/16 19:22,CIERRA BARKER MD Ordered [facility] Order Management : Lab tests 30 Minutes Critical Care : No Nursing Notes RTF : Triage Forms ED Triage Assessment,02/22/16 18:28,NICKY MADRIGAL RN Nursing Notes ED Primary Assessment,02/22/16 19:22,NICKY MADRIGAL VICE PRESIDENT OF NEWS Pain Assessment,02/22/16 20:08,NICKY MADRIGAL RN [facility] Nursing Assessment : Triage and 1-2 nursing assessments [facility] Disposition : Discharge [facility] Total Points with Diagnosis Control : 5 [facility] Visit Level : 72342 Level 3 Treatments Prior to Arrival : None NICKY MADRIGAL RN - 02/22/2016 20:08 CDT Source: [employer] Document Id: [id number] CDT!18 documented in this encounter Plan of Treatment Not on filedocumented as of this encounter Procedures Procedure Name Priority Date/Time Associated Diagnosis Comme nts RAPID STREP A Routine 02/22/2016 6:50 PM Results for this SCREEN CDT procedure are i n the results section. RAPID STREP A Routine 02/22/2016 6:50 PM Results for this SCREEN CDT procedure are i n the results section. documented in this encounter Results Rapid Strep A Screen (02/22/2016 6:50 PM CDT) [facility] Method Time Signature HXRapid Strep POWERCHART Confirmation HXPre Pending POWERCHART HXFinal NEG POWERCHART HXFinal [facility] [address] [facility] [id number] Specimen Anatomical Collection Method Collection Time Receive d Time (Source) Location / / Volume Laterality Throat 02/22/2016 6:50 PM 6 6:50 CDT PM CDT Cierra Barker M.D. LAB MICROBIOLOGY - [facility] Performing Organization Address City/State/ZIP Code Phon e Number POWERCHART Rapid Strep A Screen (02/22/2016 6:50 PM CDT) [facility] Method Time Signature HXStrep A POWERCHART Screen Rapid HXFinal Negative for POWERCHART Strep Group A by rapid screen. HXFinal Culture POWERCHART confirmation to follow. Specimen (Source) Anatomical Collection Method Collection Time Re ceived Time Location / / Volume Laterality Throat 02/22/2016 6:50 PM CDT Cierra Barker M.D. LAB MICROBIOLOGY - [facility] Performing Organization Address City/State/ZIP Code Phon e Number POWERCHART documented in this encounter Visit Diagnoses Not on filedocumented in this encounter Additional Health Concerns Assessment Noted Time PHQ-9 Depression Total Score: 18 02/14/2013 9:53 AM CD T documented as of this encounter
--- OUTSIDE RECORDS SUMMARY | 2022-07-29 10:51 | XMS_ITS | Encounter Summary ---
:1960 Author Organization [facility] Address [address] [place] [address] Care Team Providers Name Role Phone Unavailable Primary Care Provider Unavailable Encounter Details Date Type Department Care Team Description 09/30/2016 Hospital Encounter HX [facility] Kevin lindquist M.D. [address] [place] [phone] (Wo rk) Social History Tobacco Use Types Packs/Day Years Used Date Smoking Tobacco: Never Sex Assigned at Date Recorded Not on file documented as of this encounter Last Filed Vital Signs Vital Sign Reading Time Taken Comments Blood Pressure 150/66 09/30/2016 6:32 PM HOSPITALIST MEDICAL DIRECTOR Pulse 40 09/30/2016 6:32 PM HOSPITALIST MEDICAL DIRECTOR Temperature - - Respiratory Rate - - Oxygen Saturation - - Inhaled Oxygen Concentration - - Weight 86.4 kg (190 lb 7.6 oz) 09/30/2016 6:32 PM HOSPITALIST MEDICAL DIRECTOR Height 182.9 cm (6') 09/30/2016 6:32 PM HOSPITALIST MEDICAL DIRECTOR Body Mass Index 25.83 09/30/2016 6:32 PM HOSPITALIST MEDICAL DIRECTOR documented in this encounter Medications at Time of Discharge Medication Sig Dispensed Refills Start Date End Date PEDIATRIC MULTIVITAMIN Take 4 tablets by 0 2015 NO.76 (FLINTSTONES mouth daily. COMPLETE ORAL) CYANOCOBALAMIN, VITAMIN Inject 1 mL under 0 09/3008/04/2017 B-12, INJ the skin every 30 (thirty) days. ferrous sulfate 325 mg Take 1 tablet by 0 015 11/24/2017 (65 mg iron) tablet mouth 2 (two) times a day. lisinopril Take 1 tablet by 0 09/30/2016 08/04/20 17 (for_PRINIVIL,ZESTRIL) 10 mouth daily. mg tablet documented as of this encounter H&P Notes Kevin Bullock M.D. - 09/30/2016 7:00 AM CST Clinic Full Note CHIEF COMPLAINT/REASON FOR VISIT Here for preop exam. Surg planned for December. Unsure of surgeon. Kay at his office stated a preopnow would be acceptable. Skin removal from abdomen. CLIENT HAS BEEN WITHOUT ALL MEDS X 2 MOS. HISTORY OF PRESENT ILLNESS Ed presents today for a preop exam. He will be undergoing a panniculectomy on December 10 in [place]. He reports that with his last procedure, they gave him too much anesthesia. He has no history ofblood clots or bleeding. He has been out of his medications for the past 2 months. Blood pressures at home have been 140 up to 180 over 70 to 80. Blood sugars have been 82 to 95. He continues to work on his diet as he has gained some weight which he thinks is mostly water weight due to being off of his Lasix. He has also cut back on how much food he is eating and is not drinking a lot of water. No problems with chest pain, shortness of breath, or low energy. MEDICATIONS allopurinol 300 mg oral tablet, 300 mg, 1 tab(s), kidney stones, PO, Daily, 1 refills, * cyanocobalamin 1000 mcg/mL injectable solution, 1,000 mcg, 1 mL, vitamin B12 deficiency, Subcut., Monthly, 3 refills, * ferrous sulfate 325 mg (65 mg elemental iron) oral tablet, 325 mg, 1 tab(s), PO, 2xDay, 0 refills, * Flintstones Complete oral tablet, chewable, 1 tab(s), Chewed, 2xDay, 1 refills, * Lasix 40 mg oral tablet, 40 mg, 1 tab(s), Leg SwellingPlease advise labs needed for further refills., PO, Daily, PRN, 0 refills, * lisinopril 10 mg oral tablet, 10 mg, 1 tab(s), blood pressure, PO, Daily, 3 refills, * * indicates non-compliance ALLERGIES Cipro Influenza Virus Vaccine (diarrhea) PAST MEDICAL HISTORY Chronic BPH without urinary obstruction DM II (or NOS), uncontrolled Eczema Erectile dysfunction* Flutter Atrial NOS Hyperlipidemia Hypertension essential, NOS Kidney stone Optic disc cupping Pyelonephritis Tinea cruris. Tinea pedis* Unspecified Adjustment Reaction Urge Incontinence Historical Fracture Closed Radial head Morbid Obesity (BMI > 40) (V85.4) Obesity NOS PROCEDURES/SURGICAL HISTORY Gastric bypass (11/19/2014), Cystoscopy (12/26/2009), PSA, TOTAL SCREENING (12/26/2009), Discectomy (02/19/1989). SOCIAL HISTORY Patient has been for 12 years. No tobacco or alcohol. 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 SOCIAL HISTORY Date Time: 09/30/2016 18:32 Tobacco: Smoking Status: Never smoker Exposure: Care provider denies smoking in home, Other: never Alcohol: Use: No Recreational Drugs: Use: None Type: No Results Found FAMILY HISTORY Mother ( at 72 year(s)):Positive: Diabetes mellitus; Kidney disease; Myocardial infarction Father ( at 88 year(s)):Positive: Congestive heart failure; Hypertension SYSTEMS REVIEW Constitutional: Patient denies fever, chills, sweats, fatigue, appetite change, temperature intolerance or weight change. Eyes: Patient denies double vision, blurred vision, pain or redness. ENT: Nasal drainage. Patient denies congestion, nosebleeds, sinus problems, sores on lips or mouth,sore throat or changes in voice. Respiratory: Patient denies cough, sputum production, shortness of breath, and wheezing. Skin: Patient denies any sores or rash. Cardiovascular System: Patient denies chest pain, history of heart murmur, DVT or PE. There is no edema or palpitations. GI: Patient denies swallowing difficulties, heartburn, abdominal pain, nausea, vomiting, constipation, diarrhea, black or bloody stools or hemorrhoids. Genitourinary: Patient denies problems urinating or frequency. There are no penile sores discharge,testicular pain or mass. Musculoskeletal: Joint pain in left elbow and right shoulder. Patient denies any stiffness, or swelling. There is no significant back pain or neck pain. Neurologic: Patient denies any headaches, history of head injury, blacking out, or confusion. No seizures, difficulty with vision, speech, walking, or weakness in arm or leg. Endocrine: Patient denies changes in his hair, skin, excessive thirst, Urination, or diabetes. Mental Health: Patient denies anxiety, depression, insomnia, or abuse. Lymphatic/Hematologic: Patient denies masses, swelling, or unusual bruising or bleeding. VITAL SIGNS T: 36.1 ??C (Core) HR: 40 BP: 150 / 66 SpO2: 100% HT: 182.88 cm WT: 86.4 kg BMI: 25.83 PHYSICAL EXAMINATION General: Alert and oriented. No acute distress. Head: Atraumatic. Normocephalic Eyes: Pupils equal, round, and reactive to light. Extraocular movements intact. Ears: Tympanic membranes clear with good light reflex. Nose: No nasal discharge. Mouth: Oral mucosa moist. No oral lesions. Throat: No oropharyngeal erythema. Neck: Supple. No lymphadenopathy. No carotid bruits. Cardiovascular exam: Bradycardia. Normal S1 and S2. No murmurs, rubs, or gallops. Lungs: Clear to auscultation bilaterally. Abdomen: Soft. Nontender. No masses, rebound, or guarding. Normoactive bowel sounds. Extremities: Trace pedal edema. Neurologic: Cranial nerves 2-12 grossly intact. No focal deficits. Psychiatric: Mood is stable. LAB RESULTS -----HEMATOLOGY----- Hgb: 12.5 Low Hct: 36.8 Low WBC: 7.7 RBC: 3.93 Low MCV: 93.6 RDW: 13.1 Platelet: 153 -----CHEMISTRY----- Sodium Lvl: 138 Potassium Lvl: 4.1 Chloride: 99 CO2: 24 AGAP: 15 Glucose Lvl: 117 Creatinine: 1.01 EGFR (MDRD): >60 EGFR (MDRD): >60 BUN: 22 Calcium Lvl: 9.0 Hgb A1c: 5.1 DIAGNOSTIC RESULTS MuseReport Test Reason : PREOP Blood Pressure : / mmHG Vent. Rate : 033 BPM Atrial Rate : 227 BPM P-R Int : 000 ms QRS Dur : 122 ms QT Int : 514 ms P-R-T Axes : 268 -33 044 degrees QTc Int : 380 ms Atrial flutter Low voltage QRS Right bundle branch block Left axis deviation Nonspecific T wave abnormality When compared with ECG of 23-NOV-2014 14:47, Vent. rate has decreased BY 29 BPM QRS voltage has decreased in the precordial leads [1] IMPRESSION/REPORT/PLAN 1. Preoperative Exam NOS Patient has atrial flutter and rate has decreased although patient denies any symptoms. No history of lung problems CELESTE score is 8 which places him in the low risk category. Labs are acceptable. Priorto surgery, patient would benefit from seeing cardiology due to significant bradycardia in the setting of his atrial flutter. 2. Flutter Atrial NOS We are going to refer to cardiology for further evaluation. 3. DM2 A1c is at goal. Encouraged patient to continue to eat small amounts frequently. 4. Hypertension HTN NOS Blood pressure up a little today, but patient has been off of his lisinopril. This was refilled. Patient was advised to only take his Lasix once daily. FOOTNOTES [1]12 Lead ECG; TITI WATTS MD, PhD 09/30/2016 19:25 HOSPITALIST MEDICAL DIRECTOR Electronically Signed By: KEVIN BULLOCK MD On: 10/05/2016 07:04 AM Source: [employer] Document Id: [id number] ITALIST MEDICAL DIRECTOR documented in this encounter Miscellaneous Notes Telephone Encounter - Conversion, Historical Provider Ser - 02/11/2017 12:30 AM CDT *Phone Message Document Contains Addenda Addendum by ANGEL NGUYEN on February 16, 2017 09:39:48 CDT The wireless customer you are trying to reach is not available. Please try again later. Addendum by ANGEL NGUYEN on February 11, 2017 14:47:17 CDT The wireless caller you are trying to reach is not available, please try again later. Addendum by KEVIN BULLOCK MD on February 11, 2017 14:36:01 CDT From: KEVIN BULLOCK MD To: [facility] Nurse Guajardo; Sent: 02/11/2017 14:36:01 CDT Subject: RE: *Phone Message I would like to see Ed. I could see him next Thursday (02/17) at 1:15 with 1:00 check in time. The occmed spot can be shortened to 15 minutes. I'll find another spot if that doesn't work. Thanks, Kevin Addendum by ANGEL NGUYEN on February 11, 2017 08:28:01 CDT From: ANGEL NGUYEN ([facility] Family [facility] Nurse Guajardo) To: KEVIN BULLOCK MD; Sent: 02/11/2017 08:28:01 CDT Subject: FW: *Phone Message This pretty much says it all, do you want me to call him? I'm assuming that your response will be he needs an appointment to discuss which will be out several weeks at best..... From: KRISTA PAPPAS ([facility] Family [facility] Big Data Analytics Lead) To: [facility] Family [facility] Nurse Guajardo; Sent: 02/11/2017 00:30:28 CDT Subject: *Phone Message Caller is: ( X ) Patient ( ) Mother ( ) Father ( ) Spouse ( ) Daughter ( ) Son ( ) Pharmacy ( ) Other: Physician: Kevin Song Patient MRN #: Reason for Call: Missed his appointment on February 10, 2017 with Kevin Song. Message: Since getting a pacemaker, he has had no energy, feels terrible and sleeps all the time (day and night). He slept through his alarm and missed the appointment. Please call him at [phone]. Advice/Action: Source used: ( ) Verbalizes understanding [...] back cell phone number ( ) Source: [facility] POWERCHART Document Id: [id number] Telephone Encounter - Conversion, Historical Provider Ser - 10/04/2016 9:19 AM CST *Phone Message Document Contains Addenda Addendum by KEVIN BULLOCK MD on October 06, 2016 09:35:19 HOSPITALIST MEDICAL DIRECTOR From: KEVIN BULLOCK MD To: KEVIN BULLOCK MD; Sent: 10/06/2016 09:35:19 HOSPITALIST MEDICAL DIRECTOR Subject: RE: *Phone Message Attempted to call patient to discuss cardiology recommendations. Addendum by VINEET RAMIREZ LPN on October 04, 2016 12:32:38 HOSPITALIST MEDICAL DIRECTOR From: VINEET RAMIREZ LPN ([facility] Nurse Gu[facility]ardo) To: KEVIN BULLOCK MD; Sent: 10/04/2016 12:32:38 HOSPITALIST MEDICAL DIRECTOR Subject: FW: *Phone Message From: MARY FELDERND Family Medicine Big Data Analytics Lead) To: [facility] Family Medicine Nurse Guajardo; Sent: 10/04/2016 09:19:28 HOSPITALIST MEDICAL DIRECTOR Subject: *Phone Message Caller is: ( X ) Patient ( ) Mother ( ) Father ( ) Spouse ( ) Daughter ( ) Son ( ) Pharmacy ( ) Other: Physician: Duncan Patient MRN #: Reason for Call: Message: patient has been taking his water pills and is starting to lose weight vs gaining. Advice/Action: Source used: ( ) Verbalizes understanding [...] back cell phone number ( ) Source: [email or web address] Document Id: [id number] Osbaldo - Angel Nguyen L.P.N. - 10/01/2016 7:38 AM CST Px Follow up questions From: ANGEL NGUYEN ([facility] Family [facility] Nurse Bennett) To: KEVIN BULLOCK MD; Sent: 10/01/2016 07:38:27 HOSPITALIST MEDICAL DIRECTOR Subject: Px Follow up questions Client called this am with questions about his medication refills and looking for his blood test results from last evening. Also states I measured his height wrong as he measured when he got home and he was exactly 6 feet tall. I will change this on his intake form. Also, wanted me to remind Dr. Song that he believes his kidney function elevation at time is NOT from a doubling up of Lasix but because he drinks only 20 oz of water per week. I did verify this amount with him several times. Per my conversation with Dr. Song: Kidney function results are WNL and the remainder of his blood test results are also good. Client to continue with Lasix, one daily at this time. She will authorize a 90 day supply at his request however, directions remain one tablet daily. Client is not to take Metoprolol and should take Lisinopril as his heart rate is already quite low. Client is to eat smaller portions and more frequently to avoid stretching out his gastric pouch. Source: [email or web address] Document Id: [id number] Electronically signed by Conversion, [facility] Chef De Cuisine [id number] at 02/17/2017 3:23 AM CDT Osbaldo - Kevin Bullock M.D. - 09/30/2016 7:32 PM HOSPITALIST MEDICAL DIRECTOR Ambulatory Patient Summary [address] [place] [id number] Visit Information Name: NOEMÍ LUNA [facility] Number: [id number] Current Date: 09/30/2016 19:32:28 Physicians Attending Provider: KEVIN BULLOCK MD Primary Care Provider: KEVIN BULLOCK MD NOEMÍ LUNA has been given the [...] Take Indications/Special Instructions/Comments/Notes for Patient Medication Changes/Routing allopurinol (allopurinol 300 mg oral tablet) 1 Tablet(s), Oral, once a day kidney stones Routed to [facility] , cyanocobalamin (cyanocobalamin 1000 mcg/mL injectable solution) 1 Milliliter, Subcutaneous, once a month vitamin B12 deficiency Routed to [facility] , *ferrous sulfate (ferrous sulfate 325 mg (65 mg elemental iron) oral tablet) 1 Tablet(s), Oral, two times a day furosemide (Lasix 40 mg oral tablet) 1 Tablet(s), Oral, once a day as needed for edema Leg Swelling This is a CHANGE Routed to [facility] , lisinopril (lisinopril 10 mg oral tablet) 1 Tablet(s), Oral, once a day blood pressure Routed to [facility] , *multivitamin with minerals (Flintstones Complete oral tablet, chewable) 1 Tablet(s), Chewed, two times a day * You have let us know that you are not taking this medication as listed. Please talk with your primary care provider or the health care provider who prescribed the medication as soon as possible. Stop Taking the Following Medications: Medication list as of 09-30-16 19:32 Attention: If you have any medications at home that are not on this list, DO NOT take them until youcontact your provider for clarification. Give a copy of your medication list to your primary care provider. Update your medication list any time medications or doses are changed and carry your medication list at all times in case of emergency. Electronically Signed By: KEVIN BULLOCK MD Signed On:30-SEP-2016 19:32:14 Your Allergies & Intolerances Substance Reaction Symptoms Category Comments Cipro Drug Influenza Virus Vaccine diarrhea Drug Your Problem List Problem Status Onset Comments Hyperlipidemia Active 12/28/2009 Hypertension essential, NOS Active 12/28/2009 Erectile dysfunction* Active 09/30/13 onset unknown BPH without urinary obstruction Active 09/30/13 onset unknown Urge Incontinence Active 09/30/13 onset unknown Eczema Active 09/30/13 onset unknown Ulcer of skin NOS Active 09/30/13 onset unknown Optic 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 Active 07/14/2012 Genital warts Active 09/30/13 onset unknown Tinea pedis* Active 09/30/13 onset unknown Tinea cruris. Active 09/30/13 onset unknown Unspecified Adjustment Reaction Active 05/05/2013 12/03/13 Unspecified adjustment reaction Flutter Atrial NOS Active Your Upcoming Appointments [...] if you dont have one. Go to [email or web address] and click on Create Your Account. Then, follow the directions to complete the online form. Youll be asked for your [facility] number which you can find at the top of this document. Your Goals/Additional instructions: Source: [facility] POWERCHART Document Id: [id number] ITALIST MEDICAL DIRECTOR Miscellaneous - Kevin Bullock M.D. - 09/30/2016 7:32 PM HOSPITALIST MEDICAL DIRECTOR Ambulatory Discharge Medication List [place] - [address] [place] [id number] Visit Information Name: NOEMÍ LUNA [facility] Number: [id number] Current Date: 09/30/2016 19:32:25 Attending Provider: KEVIN BULLOCK MD Primary Care Provider: KEVIN BULLOCK MD NOEMÍ LUNA has been given the following list of medications: Your Medications It is important to take your medications as directed. Use a pill box or chart to help remind you to take your medications. Please let your doctor or nurse know if you have problems taking your medications. Medication/Strength How to Take Indications/Special Instructions/Comments/Notes for Patient Medication Changes/Routing allopurinol (allopurinol 300 mg oral tablet) 1 Tablet(s), Oral, once a day kidney stones Routed to [facility] , cyanocobalamin (cyanocobalamin 1000 mcg/mL injectable solution) 1 Milliliter, Subcutaneous, once a month vitamin B12 deficiency Routed to [facility] , *ferrous sulfate (ferrous sulfate 325 mg (65 mg elemental iron) oral tablet) 1 Tablet(s), Oral, two times a day furosemide (Lasix 40 mg oral tablet) 1 Tablet(s), Oral, once a day as needed for edema Leg Swelling This is a CHANGE Routed to [facility] , lisinopril (lisinopril 10 mg oral tablet) 1 Tablet(s), Oral, once a day blood pressure Routed to [facility] , *multivitamin with minerals (Flintstones Complete oral tablet, chewable) 1 Tablet(s), Chewed, two times a day * You have let us know that you are not taking this medication as listed. Please talk with your primary care provider or the health care provider who prescribed the medication as soon as possible. Stop Taking the Following Medications: Medication list as of 09-30-16 19:32 Attention: If you have any medications at home that are not on this list, DO NOT take them until youcontact your provider for clarification. Give a copy of your medication list to your primary care provider. Update your medication list any time medications or doses are changed and carry your medication list at all times in case of emergency. Electronically Signed By: KEVIN BULLOCK MD Signed On:30-SEP-2016 19:32:14 Additional Information: Source: [facility] POWERCHART Document Id: [id number] ITALIST MEDICAL DIRECTOR Miscellaneous - Angel Nguyen L.P.N. - 09/30/2016 7:17 PM CST Obstructive Sleep Apnea Obstructive Sleep Apnea Entered On: 09/30/2016 19:18 HOSPITALIST MEDICAL DIRECTOR Performed On: 09/30/2016 19:17 HOSPITALIST MEDICAL DIRECTOR by ANGEL NGUYEN CELESTE Screening Known Obstructive Sleep Apnea : No - NOT diagnosed with CELESTE CELESTE Score : No qualifying data available. CELESTE Results : No qualifying data available. ANGEL NGUYEN - 09/30/2016 19:17 HOSPITALIST MEDICAL DIRECTOR CELESTE Assessment Do you have high blood pressure or have you been told to take medication for high blood pressure? : Yes Frequency of Snoring HTN : Never Frequency of Gasping, Choking, Snorting HTN : Never Total Number of Historical Features HTN : 0 Neck Circumference - CELESTE - HTN : 40/41 Total Sleep Apnea Clinical Score HTN Calc : 8 ANGEL NGUYEN - 09/30/2016 19:17 HOSPITALIST MEDICAL DIRECTOR Source: [facility] POWERCHART Document Id: [id number] HOSPITALIST MEDICAL DIRECTOR!12 ITALIST MEDICAL DIRECTOR Miscellaneous - Angel Nguyen, L.P.N. - 09/30/2016 6:32 PM CST Adult Manager Port Intake/History Document Has Been Updated Adult Manager Port Intake/History Entered On: 09/30/2016 18:40 HOSPITALIST MEDICAL DIRECTOR Performed On: 09/30/2016 18:32 HOSPITALIST MEDICAL DIRECTOR by ANGEL NGUYEN Intake Actual Weight : 86.4 kg(Converted to: 190 lb 8 oz) Weight Source : Standing scale Dosing Weight Clinic : 86.4 kg ANGEL NGUYEN - 09/30/2016 19:16 HOSPITALIST MEDICAL DIRECTOR Clinic BSA : 2.1 Body Mass Index : 25.83 kg/m2 ANGEL NGUYEN - 10/01/2016 7:38 HOSPITALIST MEDICAL DIRECTOR Chief Complaint : Here for preop exam. Surg planned for December. Unsure of surgeon. Kay at his office stated a preop now would be acceptable. Skin removal from abdomen. CLIENT HAS BEEN WITHOUT ALL MEDS X 2 MOS. Ambulatory Intake Additional Information : Refusing weight/height. Temperature Core : 36.1 DegC(Converted to: 97.0 DegF) (LOW) Peripheral Pulse Rate : 40 /min (<LLOW) Systolic Blood Pressure : 150 mmHg (HI) Diastolic Blood Pressure : 66 mmHg NIBP Mean : 94 mmHg BP Location : Left upper extremity Blood Pressure Cuff Size : Large SpO2 : 100 % Oxygen Therapy : Room air ANGEL NGUYEN - 09/30/2016 18:32 HOSPITALIST MEDICAL DIRECTOR Height : 182.88 cm(Converted to: 6 ft 0 inch(es), 72 inch(es)) ANGEL NGUYEN - 10/01/2016 7:38 HOSPITALIST MEDICAL DIRECTOR General Info Information Given By : Patient Languages : Kyrgyz Is Patient Female and 13-50 no hysterectomy : No ANGEL NGUYEN 09/30/2016 18:32 HOSPITALIST MEDICAL DIRECTOR Subjective Pain Symptoms : ANGEL Torres 09/30/2016 18:32 HOSPITALIST MEDICAL DIRECTOR Dependent Habits Exposure to Tobacco Smoke : Care provider denies smoking in home, Other: never Smoking Status : Never smoker Tobacco 2A : No Tobacco Use/Currently Using : No Tobacco Use/Last 30 Days : No Tobacco Use/Last 12 months : No Alcohol Use : No ANGEL NGUYEN 09/30/2016 18:32 HOSPITALIST MEDICAL DIRECTOR Caffeine Use Grid Caffeine Use : Current Type : Coffee, Soft drinks Frequency : Weekly Amount : soda- weekly; coffee- 1x/week ANGEL NGUYEN 09/30/2016 18:32 HOSPITALIST MEDICAL DIRECTOR Recreational Drug Use Grid Drug Use : None ANGEL NGUYEN 09/30/2016 18:32 HOSPITALIST MEDICAL DIRECTOR Source: [facility] POWERCHART Document Id: [id number] HOSPITALIST MEDICAL DIRECTOR!5 ITALIST MEDICAL DIRECTOR Miscellaneous - Sorin Wagner RAugustine - 09/02/2016 8:27 AM CST FYI; Fired from pharmacy From: SORIN WAGNER RN To: KEVIN BULLOCK MD; Sent: 09/02/2016 08:27:21 HOSPITALIST MEDICAL DIRECTOR Subject: COLIN; Fired from pharmacy [facility] called and states that patient is no longer able to get his medications through their pharmacy. Patient has been notified. Source: [facility] POWERCHART Document Id: [id number] Electronically signed by Conversion, [facility] Chef De Cuisine [id number] at 02/17/2017 3:23 AM CDT documented in this encounter Plan of Treatment Not on filedocumented as of this encounter Procedures Procedure Name Priority Date/Time Associated Comments Diagnosis CBC WITHOUT Routine 09/30/2016 7:35 PM Results f or this DIFFERENTIAL, B HOSPITALIST MEDICAL DIRECTOR procedure ar e in the results section. HEMOGLOBIN A1C, B Routine 09/30/2016 7:35 PM Resu lts for this HOSPITALIST MEDICAL DIRECTOR procedure are i n the results section. BASIC METABOLIC Routine 09/30/2016 7:35 PM Result s for this PANEL, S/P HOSPITALIST MEDICAL DIRECTOR procedure are i n the results section. ECG Routine 09/30/2016 7:25 PM Results f or this HOSPITALIST MEDICAL DIRECTOR procedure are i n the results section. documented in this encounter Results (ABNORMAL) CBC without Differential (09/30/2016 7:35 PM HOSPITALIST MEDICAL DIRECTOR) Analysis Performed At Patho logist Time Signature Leukocytes 7.7 3.5 - 10.5 POWERCHART X109L Erythrocytes 3.93 (L) 4.32 - POWERCHART 5.72 P0124S Hemoglobin 12.5 (L) 13.5 - POWERCHART 17.5 GDL Hematocrit 36.8 (L) 38.8 - POWERCHART 50.0 MCV 93.6 81.2 - POWERCHART 95.1 FL HX RDW 13.1 11.8 - POWERCHART 15.6 Platelet Count 153 150 - 450 POWERCHART X109L Specimen (Source) Anatomical Collection Method Collection Time Re ceived Time Location / / Volume Laterality Blood 09/30/2016 7:35 PM HOSPITALIST MEDICAL DIRECTOR Kevin Copeland M.D. LAB BLOOD ADD-ON Performing Organization Address City/State/ZIP Code Phon e Number POWERCHART BMP (Basic Metabolic Panel) (09/30/2016 7:35 PM HOSPITALIST MEDICAL DIRECTOR) P athologist Signature Sodium, S 138 135 - 145 POWERCHART MMOLL Potassium, S 4.1 3.5 - 5.1 POWERCHART MMOLL Chloride, S 99 98 - 107 POWERCHART MMOLL CO2 Total 24 22 - 29 POWERCHART MMOLL BUN (Blood Urea 22 8 - 24 POWERCHART Nitrogen), S MGDL Creatinine 1.01 0.74 - POWERCHART 1.35 MGDL Calcium, Total, 9.0 8.6 - 10.3 POWERCHART S MGDL Anion Gap 15 10 - 20 POWERCHART MMOLL HXeGFR (MDRD) >60 >=60 POWERCHART [id number] eGFR >60 >=60 POWERCHART Black/ [id number] [place] Glucose 117 70 - 139 POWERCHART MGDL Specimen (Source) Anatomical Collection Method Collection Time Re ceived Time Location / / Volume Laterality Blood 09/30/2016 7:35 PM HOSPITALIST MEDICAL DIRECTOR Kevin Copeland M.D. LAB BLOOD ADD-ON Performing Organization Address City/State/ZIP Code Phon e Number POWERCHART Hemoglobin A1c (09/30/2016 7:35 PM HOSPITALIST MEDICAL DIRECTOR) P athologist Signature Hemoglobin A1c, 5.1 <=5.6 A1C POWERCHART B Specimen (Source) Anatomical Collection Method Collection Time Re ceived Time Location / / Volume Laterality Blood 09/30/2016 7:35 PM HOSPITALIST MEDICAL DIRECTOR Kevin Copeland M.D. LAB BLOOD ADD-ON Performing Organization Address City/State/ZIP Code Phon e Number POWERCHART ECG 12 Lead (09/30/2016 7:25 PM HOSPITALIST MEDICAL DIRECTOR) Specimen (Source) Anatomical Collection Method Collection Time Re ceived Time Location / / Volume Laterality 09/30/2016 7:25 PM HOSPITALIST MEDICAL DIRECTOR [facility] - 09/30/2016 7:25 PM HOSPITALIST MEDICAL DIRECTOR Test Reason : PREOP Blood Pressure : / mmHG Vent. Rate : 033 BPM ? Atrial Rate : 227 BPM ?? P-R Int : 000 ms ?QRS D ur : 122 ms ?QT Int : 514 ms ? P-R-T Axe s : 268 -33 044 degrees ?? QTc Int : 380 ms Atrial flutter with escape rhythm Low voltage QRS Right bundle branch block Left axis deviation Nonspecific T wave abnormality When compared with ECG of 23-NOV-2014 14 :47, Vent. rate has decreased BY ??29 BPM QRS voltage has decreased in the precord ial leads Revised Report ?? Referred By: KEVIN GUTIERRES ? Confirmed By:TITI WATTS ?? Procedure Note Provider, Keely Gonzalez - 02/24/2017F ormatting of this note might be different from the original. Test Reason : PREOP Blood Pressure : / mmHG Vent. Rate : 033 BPM Atrial Rate : 227 B PM P-R Int : 000 ms QRS Dur : 122 ms QT Int : 514 ms P-R-T Axes : 268 -33 04 4 degrees QTc Int : 380 ms Atrial flutter with escape rhythm Low voltage QRS Right bundle branch block Left axis deviation Nonspecific T wave abnormality When compared with ECG of 23-NOV-2014 14 :47, Vent. rate has decreased BY 29 BPM QRS voltage has decreased in the precord ial leads Revised Report Referred By: KEVIN GUTIERRES Confirmed By:TITI WATTS MD Titi Watts M.D., Ph.D. ECG ORDERABLES Performing Organization Address City/State/ZIP Code Phon e Number [facility] [address] [place] [phone] documented in this encounter Visit Diagnoses Not on filedocumented in this encounter Additional Health Concerns Assessment Noted Time PHQ-9 Depression Total Score: 18 02/14/2013 9:53 AM CD T documented as of this encounter
--- OUTSIDE RECORDS SUMMARY | 2022-07-29 10:51 | XMS_ITS | Encounter Summary ---
:1960 Author Organization [facility] Address [address] [place] [address] Care Team Providers Name Role Phone Kevin Bullock M.D. Primary Care Provider [phone] Encounter Details Date Type Department Care Team Description 03/17/2017 Hospital Encounter HX [facility] [place] Kevin Aguirre M.D. [address] [place] [address] [phone] (Wo rk) Social History Tobacco Use Types Packs/Day Years Used Date Smoking Tobacco: Never Sex Assigned at Date Recorded Not on file documented as of this encounter Last Filed Vital Signs Vital Sign Reading Time Taken Comments Blood Pressure 116/78 03/17/2017 6:34 PM CDT Pulse 73 03/17/2017 6:34 PM CDT Temperature - - Respiratory Rate 16 03/17/2017 6:34 PM CDT Oxygen Saturation - - Inhaled Oxygen Concentration - - Weight - - Height 183 cm (6' 0.05) 03/17/2017 6:34 PM CDT Body Mass Index - - [...] furosemide (LASIX) 40 mg Take 1 tablet by 0 10/0108/04/2017 tablet mouth daily. lisinopril Take 1 tablet by 0 09/30/2016 08/04/20 17 (for_PRINIVIL,ZESTRIL) 10 mouth daily. mg tablet documented as of this encounter Progress Notes Kevin Bullock M.D. - 03/17/2017 6:59 AM CDT Clinic Full Note CHIEF COMPLAINT/REASON FOR VISIT Not feeling well since pacemaker was placed. HISTORY OF PRESENT ILLNESS Ed presents today for follow-up. He underwent pacemaker placement in mid January due to atrial flutter with a complete heart block and a pulse rate in 30s to low 40s. Patient was very unhappy that a pacemaker was placed as he did not want any life support devices. Since the pacemaker, he has also felt poorly. He wants to sleep all the time. His legs are burning and feel swollen although they are not. His right finger has been since the surgery and is not improving. He has had stomach cramping but no definite pain. He gets full quickly. Appetite has been so-so. He has gained maybe 7 lb. He has no ambition. He has headaches which are sometimes mild but other times more severe. His nose is running all the time. Blood sugars are now in the low 100s where as previously they had been 80- 90. He has anaching in his chest and notices that he is breathing more deeply. There is some redness along the pacemaker incision and the lateral margin has not fully healed. Bowel and bladder function are okay. Heis taking 1 Lasix tablet daily. He continues to take vitamin B12 injections but has missed 1 month recently. He also takes a tablet of vitamin B12 and Flintstones vitamins. MEDICATIONS allopurinol 300 mg oral tablet, 300 mg, 1 tab(s), kidney stones, PO, Daily, 1 refills cyanocobalamin 1000 mcg/mL injectable solution, 1,000 mcg, 1 mL, vitamin B12 deficiency, Subcut., Monthly, 3 refills ferrous sulfate 325 mg (65 mg elemental iron) oral tablet, 325 mg, 1 tab(s), PO, 2xDay, 0 refills Flintstones Complete oral tablet, chewable, 1 tab(s), Chewed, 2xDay, 1 refills Lasix 40 mg oral tablet, 40 mg, 1 tab(s), Leg Swelling, PO, Daily, 3 refills lisinopril 10 mg oral tablet, 10 mg, 1 tab(s), blood pressure, PO, Daily, 3 refills ALLERGIES Cipro Influenza Virus Vaccine (diarrhea) PAST MEDICAL HISTORY Chronic Block Heart NOS BPH without urinary obstruction DM II (or NOS), uncontrolled Eczema Erectile dysfunction* Flutter Atrial NOS Hyperlipidemia Hypertension essential, NOS Kidney stone Optic disc cupping Pacemaker Cardiac S/P Pyelonephritis Unspecified Adjustment Reaction Urge Incontinence Historical Fracture Closed Radial head Morbid Obesity (BMI > 40) (V85.4) Obesity NOS Tinea cruris. Tinea pedis* PROCEDURES/SURGICAL HISTORY Echocardiogram (01/05/2017), Gastric bypass (11/19/2014), Cystoscopy (12/26/2009), PSA, TOTAL SCREENING (12/26/2009), Discectomy (02/19/1989). SOCIAL HISTORY Date Time: 03/17/2017 18:34 Tobacco: Smoking Status: Never smoker Exposure: Care provider denies smoking in home, Other: never Alcohol: Use: No Recreational Drugs: Use: None Type: No Results Found FAMILY HISTORY Mother ( at 72 year(s)):Positive: Diabetes mellitus; Kidney disease; Myocardial infarction Father ( at 88 year(s)):Positive: Congestive heart failure; Hypertension SYSTEMS REVIEW As per HPI. His right testicle is also aching. VITAL SIGNS T: 37.1 ??C (Core) HR: 73 RR: 16 BP: 116 / 78 SpO2: 100% HT: 183 cm PHYSICAL EXAMINATION General: Alert and oriented. No acute distress. Neck: Supple. No lymphadenopathy. No carotid bruits. Cardiovascular exam: Regular rate and rhythm. Normal S1 and S2. No murmurs, rubs, or gallops. Lungs: Clear to auscultation bilaterally. Abdomen: Soft. Patient does have some epigastric and left sided abdominal tenderness to palpation. No definite masses. No rebound, guarding. Normoactive bowel sounds. Extremities: No pedal edema. Skin: Pacemaker incision evaluated on the left upper chest. The lateral corner of it has a scab in place with some minimal surrounding erythema. Using pickups, the scab was removed and 2 suture fragments were also removed. The base of this wound is clean dry and intact. LAB RESULTS -----HEMATOLOGY----- Hgb: 9.8 g/dL Low (03/17/17) Hct: 28.6 % Low (03/17/17) WBC: 5.4 x10(9)/L (03/17/17) RBC: 2.92 x10(12)/L Low (03/17/17) MCV: 97.9 fL High (03/17/17) RDW: 14 % (03/17/17) Platelet: 175 x10(9)/L (03/17/17) -----CHEMISTRY----- Sodium Lvl: 138 mmol/L (03/17/17) Potassium Lvl: 4.3 mmol/L (03/17/17) Chloride: 100 mmol/L (03/17/17) CO2: 27 mmol/L (03/17/17) AGAP: 11 mmol/L (03/17/17) Alkaline Phosphatase: 53 U/L (03/17/17) Glucose Lvl: 100 mg/dL (03/17/17) Creatinine: 1.2 mg/dL (03/17/17) EGFR (MDRD): >60 (03/17/17) EGFR (MDRD): >60 (03/17/17) BUN: 30 mg/dL High (03/17/17) Calcium Lvl: 9.2 mg/dL (03/17/17) Protein Total: 6.7 g/dL (03/17/17) Albumin Lvl: 3.8 g/dL (03/17/17) AST: 26 U/L (03/17/17) ALT: 28 U/L (03/17/17) Bili Total: 0.3 mg/dL (03/17/17) Cholesterol: 137 mg/dL (03/17/17) Tri mg/dL (03/17/17) HDL: 64 mg/dL (03/17/17) LDL Calculated: 62 mg/dL (03/17/17) Chol/HDL Ratio: 2 (03/17/17) Hgb A1c: 5.6 % A1C (03/17/17) IMPRESSION/REPORT/PLAN 1. Fatigue NOS Patient notes significant fatigue since his pacemaker placement. His thyroid in early January was normal. Hemoglobin today is lower. I am concerned about vitamin B12 deficiency and this level is pending. Ferritin and iron studies are also pending. Remainder of labs are normal. Patient will be updated once the remainder of the test results are available. Ordered: Ferritin-Chairez 8689 Iron and Total Fe Binding Capacity*-Chairez FEC OV Est Pt Level 4 - 09322 - 25 min Vitamin B12 and Folate Level*-Chairez 9156 2. Paresthesia NOS I am concerned about vitamin B12 deficiency although patient does note he typically takes his injections and also is taking a vitamin. Diabetic neuropathy is also possible but his A1c looks really good at this time. Ordered: OV Est Pt Level 4 - 01456 - 25 min 3. Pacemaker Cardiac S/P We remove some remaining suture fragments which will allow the corner of the pacemaker incision to heal. Heart rate is regular today. Ordered: OV Est Pt Level 4 - 98263 - 25 min 4. DM2 A1c is at goal. Lipid panel is also acceptable. Patient is not currently on any medications. Ordered: Ferritin-Chairez 8689 Iron and Total Fe Binding Capacity*-Chairez FEC OV Est Pt Level 4 - 81160 - 25 min Vitamin B12 and Folate Level*-Chairez 9156 5. Surgery Bariatric S/P Vitamin B12 and iron studies pending. Ordered: Ferritin-Chairez 8689 Iron and Total Fe Binding Capacity*-Chairez FEC OV Est Pt Level 4 - 39169 - 25 min Vitamin B12 and Folate Level*-Chairez 9156 6. Hypertension HTN NOS Blood pressure is acceptable. Continue current medications. BMP within normal limits. Ordered: OV Est Pt Level 4 - 07332 - 25 min Electronically Signed By: KEVIN BULLOCK MD On: 03/18/2017 07:02 AM Source: [facility] POWERCHART Document Id: [id number] documented in this encounter Miscellaneous Notes Miscellaneous - Conversion, Historical Provider Ser - 05/04/2017 8:09 PM CDT *General Message Document Contains Addenda Addendum by SASCHA LI LPN on May 05, 2017 10:05:13 CDT From: SASCHA LI LPN ([facility] Nurse [facility]) To: KEVIN BULLOCK MD; Sent: 05/05/2017 10:05:13 CDT Subject: FW: *General Message Addendum by SASCHA LI LPN on May 05, 2017 10:05:[address] Song. From: SHIRLENE SEXTON To: [facility] Nurse [facility]; Sent: 05/04/2017 20:09:21 CDT Subject: *General Message Addendum to earlier message from today, [id number] Patient forgot to mention, since they put in the pacemaker he is bruising very easily. Not on blood thinner meds. PCP: Kevin Whyte, requesting follow up call, may be difficult to reach. Source: [facility] POWERCHART Document Id: [id number] Telephone Encounter - Conversion, Historical Provider Ser - 05/04/2017 10:46 AM CDT *Phone Message Document Contains Addenda Addendum by ANGEL NGUYEN on May 06, 2017 06:42:10 CDT Copy of this message mailed to client and will continue to attempt to reach him by phone. Addendum by KEVIN BULLOCK MD on May 05, 2017 20:06:01 CDT From: KEVIN BULLOCK MD To: [facility]; Sent: 05/05/2017 20:06:01 CDT Subject: RE: *Phone Message Attempted to call number below and it is not a working number. Tried to call home phone x 2 and cellphone listed in chart leaving a message. His dose of gabapentin is very low and we may need to increase this medicine before it helps his leg pain/burning. He is currently on 300mg tid (I believe). If possible, he should add a second pill to each gabapentin he is currently taking every few days until he is taking 600mg tid. It is possible that he is bruising more because the pacemaker is actually circulating his blood at a normal (but faster for him) rate which causes blood to accumulate under the skin more readily if he bumps himself. I do think repeating his hemoglobin is worthwhile and I would al so like to see him as I have a very difficult time catching him by phone. Addendum by HARVEY REDDY LPN on May 04, 2017 11:18:28 CDT From: HARVEY REDDY LPN ([facility]) To: KEVIN BULLOCK MD; Sent: 05/04/2017 11:18:28 CDT Subject: FW: *Phone Message Forwarded to PCP to review From: MARY FELDER ([facility] Freight Receiver) To: [facility]; Sent: 05/04/2017 10:46:09 CDT Subject: *Phone Message Caller is: ( X ) Patient ( ) Mother ( ) Father ( ) Spouse ( ) Daughter ( ) Son ( ) Pharmacy ( ) Other: Physician: Duncan Patient MRN #: Reason for Call: recently had called with his BP readings. He wanted to also let you know that the medication he is taking for the leg pain/burning is not helping. He stated that this weekend he was shopping and unable to even lift his legs and feels the pacemaker is not helping. The area of the pacemaker remains to hurt him along with some arm pain. Patient does not want to have more blood work and did not want to talk with the nurseline. Message: He would like to have a return call to [phone]. If he is unable to answer please call the home # [phone]. Advice/Action: Source used: ( ) Verbalizes understanding [...] back cell phone number ( ) Source: [facility] EntigoCHART Document Id: [id number] Miscellaneous - Kevin Bullock M.D. - 03/20/2017 3:19 PM CDT Normal Results Letter March 20, 2017 NOEMÍ LUNA [address] [facility] [id number] Dear NOEMÍ LUNA, Please review your test results. Most things look good, but your hemoglobin (blood count) is low at 9.8. Your vitamin B12 level is normal. Your iron level is just below normal. The low hemoglobin is likely causing you to be tired, but I am not exactly sure why this test is low. If you are not taking an iron supplement, please start taking a 325mg supplement 1 tablet daily. Sometimes, you can lose blood and hemoglogin from your gut. To test for this, we do a colonoscopy. Because the vitamin B12 levelis normal, the most likely reason for the leg burning is nerve damage from diabetes. We could do an EMG nerve study to help confirm this. Your A1c, cholesterol, kidney function, and electrolytes are normal. Please let me know if you are interested if doing these tests and I can get them scheduled. We do have medications that can help with the burning. If you have questions or concerns, please do not hesitate to call our office. Would you like to see your lab results quickly? If you have an e-mail account, join the other [phone],000 [facility] patients who use the Patient Online Services to conveniently access their lab results by calling [phone] to sign up for an account. It just takes a few minutes! Result Name Current Result Previous Result Normal Range Sodium Lvl (mmol/L) 138 03/17/2017 142 01/05/2017 135 - 145 Potassium Lvl (mmol/L) 4.3 03/17/2017 4.7 01/05/2017 3.5 - 5.1 Chloride (mmol/L) 100 03/17/2017 99 09/30/2016 98 - 107 CO2 (mmol/L) 27 03/17/2017 24 09/30/2016 22 - 29 AGAP (mmol/L) 11 03/17/2017 15 09/30/2016 10 - 20 Alkaline Phosphatase (U/L) 53 03/17/2017 45 - 115 Glucose Lvl (mg/dL) 100 03/17/2017 117 09/30/2016 70 - 139 Creatinine (mg/dL) 1.20 03/17/2017 1.22 01/05/2017 0.74 - 1.35 EGFR (MDRD) (mL/min/1.73m2) >60 03/17/2017 >60 01/05/2017 >=60 - [id number] (MDRD) (mL/min/1.73m2) >60 03/17/2017 >60 01/05/2017 >=60 - BUN (mg/dL) (H) 30 03/17/2017 22 09/30/2016 8 - 24 Calcium Lvl (mg/dL) 9.2 03/17/2017 9.0 09/30/2016 8.6 - 10.3 Protein Total (g/dL) 6.7 03/17/2017 6.3 - 7.9 Albumin Lvl (g/dL) 3.8 03/17/2017 4.2 04/07/2016 3.5 - 5.0 AST (U/L) 26 03/17/2017 (H) 51 04/07/2016 8 - 48 ALT (U/L) 28 03/17/2017 7 - 55 Bili Total (mg/dL) 0.3 03/17/2017 0.1 - 1.0 Iron-Babbitt (mcg/dL) (L) 48 03/17/2017 50 - 150 - TIBC-Babbitt (mcg/dL) 319 03/17/2017 250 - 400 - Iron Sat-Babbitt (%) 15 03/17/2017 14 - 50 - Cholesterol (mg/dL) 137 03/17/2017 120 04/07/2016 - <=199 Trig (mg/dL) 56 03/17/2017 56 04/07/2016 - <=149 HDL (mg/dL) 64 03/17/2017 56 04/07/2016 >=40 - LDL Calculated (mg/dL) 62 03/17/2017 53 04/07/2016 - <=129 Chol/HDL Ratio 2 03/17/2017 2 04/07/2016 Hgb A1c (% A1C) 5.6 03/17/2017 5.1 09/30/2016 - <=5.6 Ferritin-Chairez (mcg/L) 47 03/17/2017 102 04/07/2016 24 - 336 - Vitamin B12 Lvl-Chairez (ng/L) (H) >1400 03/17/2017 180 - 914 - Folate Lvl-Babbitt (mcg/L) >20.0 03/17/2017 >=4.0 - Hgb (g/dL) (L) 9.8 03/17/2017 (L) 11.7 01/05/2017 13.5 - 17.5 Hct (%) (L) 28.6 03/17/2017 (L) 34.9 01/05/2017 38.8 - 50.0 WBC (x10(9)/L) 5.4 03/17/2017 7.6 01/05/2017 3.5 - 10.5 RBC (x10(12)/L) (L) 2.92 03/17/2017 (L) 3.59 01/05/2017 4.32 - 5.72 MCV (fL) (H) 97.9 03/17/2017 (H) 97.2 01/05/2017 81.2 - 95.1 RDW (%) 14.0 03/17/2017 14.3 01/05/2017 11.8 - 15.6 Platelet (x10(9)/L) 175 03/17/2017 (L) 142 01/05/2017 150 - 450 Sincerely, KEVIN VALENTIN [address] [place] [id number] Electronic Signature Electronically Signed By: KEVIN BULLOCK MD On: March 20, 2017 This document has images extracted. Source: [facility] POWERCHART Document Id: [id number] Electronically signed by Conversion, [facility] Systemglendy Manager Post [id number] at 03/21/2017 7:00 AM CDT Miscellaneous - Kevin Bullock M.D. - 03/17/2017 7:23 PM CDT Ambulatory Patient Summary [address] [place] [id number] Visit Information Name: CARLYLE NOEMÍ Jim [facility] Number: [id number] Current Date: 03/17/2017 19:23:08 Physicians Attending Provider: KEVIN BULLOCK MD Primary Care Provider: KEVIN BULLOCK MD CARLYLE NOEMÍ Jim has been given the following list of [...] Tablet(s), Oral, once a day kidney stones cyanocobalamin (cyanocobalamin 1000 mcg/mL injectable solution) 1 Milliliter, Subcutaneous, once a month vitamin B12 deficiency ferrous sulfate (ferrous sulfate 325 mg (65 mg elemental iron) oral tablet) 1 Tablet(s), Oral, two times a day furosemide (Lasix 40 mg oral tablet) 1 Tablet(s), Oral, once a day Leg Swelling lisinopril (lisinopril 10 mg oral tablet) 1 Tablet(s), Oral, once a day blood pressure multivitamin with minerals (Flintstones Complete oral tablet, chewable) 1 Tablet(s), Chewed, two times a day Stop Taking the Following Medications: Medication list as of 03-17-17 19:23 Attention: If you have any medications at [...] Electronically Signed By: KEVIN BULLOCK MD Signed On:17-MAR-2017 19:22:54 Your Allergies & Intolerances Substance Reaction Symptoms [...] if you dont have one. Go to [email or web address] and click on Create Your Account. Then, follow the directions to complete the online form. Youll be asked for your [facility] number which you can find at the top of this document. Your Goals/Additional instructions: Source: [facility] POWERCHART Document Id: [id number] Miscellaneous - Kevin Bullock M.D. - 03/17/2017 7:23 PM CDT Ambulatory Discharge Medication List [address] [place], [place] [id number] Visit Information Name: NOEMÍ LUNA [facility] Number: [id number] Current Date: 03/17/2017 19:23:04 Attending Provider: KEVIN BULLOCK MD Primary Care Provider: KEVIN BULLOCK MD LUNANOEMÍ Padilla J has been given the following list of [...] Tablet(s), Oral, once a day kidney stones cyanocobalamin (cyanocobalamin 1000 mcg/mL injectable solution) 1 Milliliter, Subcutaneous, once a month vitamin B12 deficiency ferrous sulfate (ferrous sulfate 325 mg (65 mg elemental iron) oral tablet) 1 Tablet(s), Oral, two times a day furosemide (Lasix 40 mg oral tablet) 1 Tablet(s), Oral, once a day Leg Swelling lisinopril (lisinopril 10 mg oral tablet) 1 Tablet(s), Oral, once a day blood pressure multivitamin with minerals (Flintstones Complete oral tablet, chewable) 1 Tablet(s), Chewed, two times a day Stop Taking the Following Medications: Medication list as of 03-17-17 19:23 Attention: If you have any medications at [...] Electronically Signed By: KEVIN BULLOCK MD Signed On:17-MAR-2017 19:22:54 Additional Information: Source: [facility] POWERCHART Document Id: [id number] Miscellaneous - Alvina Langston L.P.N. - 03/17/2017 6:34 PM CDT Adult Production Support Specialist Intake/History Adult Production Support Specialist Intake/History Entered On: 03/17/2017 18:39 CDT Performed On: 03/17/2017 18:34 CDT by ALVINA LANGSTON [facility] Intake Chief Complaint : Not feeling well since pacemaker was placed. Ambulatory Intake Additional Information : Pacemaker placed 01/19/17. Multiple concerns. Fatigue, feeling off balance. No feeling in left 5th digist. Bilateral lower leg aching and burning. Headaches. Lightheaded. Temperature Core : 37.1 DegC(Converted to: 98.8 DegF) Peripheral Pulse Rate : 73 /min Respiratory Rate : 16 /min Systolic Blood Pressure : 116 mmHg Diastolic Blood Pressure : 78 mmHg NIBP Mean : 91 mmHg BP Location : Left upper extremity Blood Pressure Cuff Size : Regular SpO2 : 100 % Oxygen Therapy : Room air Height : 183 cm(Converted to: 6 ft 0 inch(es), 72 inch(es)) ALVINA LANGSTON LPN - 03/17/2017 18:34 CDT General Info Information Given By : Patient Preferred Communication Mode : Verbal Languages : Jamaican Is Patient Female and 13-50 no hysterectomy : No ALVINA LANGSTON LPN - 03/17/2017 18:34 CDT Subjective Pain Symptoms : Yes ALVINA LANGSTON [facility] - 03/17/2017 18:34 CDT Pain Scale Pain Scale Verbal 0-10 : Open ALVINA LANGSTON [facility] 03/17/2017 18:34 CDT Pain Pain Assessment Grid Pain 1 Pain 2 Location : Head Lower leg Laterality : Bilateral ALVINA LANGSTON [facility] - 03/17/2017 18:34 CDT ALVINA LANGSTON LPN - 03/17/2017 18:34 CDT Dependent Habits Exposure to Tobacco Smoke : Care provider denies smoking in home, Other: never Smoking Status : Never smoker Tobacco 2A : No Tobacco Use/Currently Using : No Tobacco Use/Last 30 Days : No Tobacco Use/Last 12 months : No Alcohol Use : No ALVINA LANGSTON [employer] - 03/17/2017 18:34 CDT Caffeine Use Grid Caffeine Use : Current Type : Coffee, Soft drinks Frequency : Weekly Amount : soda- weekly; coffee- 1x/week ALVINA LANGSTON LPN - 03/17/2017 18:34 CDT Recreational Drug Use Grid Drug Use : None ALVINA LANGSTON LPN 03/17/2017 18:34 CDT Source: [facility] POWERCHART Document Id: [id number] documented in this encounter Plan of Treatment Not on filedocumented as of this encounter Procedures Procedure Name Priority Date/Time Associated Comments Diagnosis LIPID PANEL, S Routine 03/17/2017 7:30 PM Results for this CDT procedure are i n the results section. VITAMIN B12 AND Routine 03/17/2017 7:30 PM Result s for this FOLATE, S CDT procedure are i n the results section. IRON AND TOT Routine 03/17/2017 7:30 PM Results f or this IRON-BINDING CAPACITY, CDT proce dure are in S/P the results section. CBC WITHOUT Routine 03/17/2017 7:30 PM Results f or this DIFFERENTIAL, B CDT procedure ar e in the results section. HEMOGLOBIN A1C, B Routine 03/17/2017 7:30 PM Resu lts for this CDT procedure are i n the results section. FERRITIN, S Routine 03/17/2017 7:30 PM Results f or this CDT procedure are i n the results section. COMPREHENSIVE Routine 03/17/2017 7:30 PM Results for this METABOLIC PANEL, S/P CDT procedu re are in the results section. documented in this encounter Results (ABNORMAL) CBC without Differential (03/17/2017 7:30 PM CDT) Analysis Performed At Patho logist Time Signature Leukocytes 5.4 3.5 - 10.5 POWERCHART X109L Erythrocytes 2.92 (L) 4.32 - POWERCHART 5.72 [id number] Hemoglobin 9.8 (L) 13.5 - POWERCHART 17.5 GDL Hematocrit 28.6 (L) 38.8 - POWERCHART 50.0 MCV 97.9 (H) 81.2 - POWERCHART 95.1 FL HX RDW 14.0 11.8 - POWERCHART 15.6 Platelet Count 175 150 - 450 POWERCHART X109L Specimen (Source) Anatomical Collection Method Collection Time Re ceived Time Location / / Volume Laterality Blood 03/17/2017 7:30 PM CDT Kevin Valentin M.D. LAB BLOOD ADD-ON Performing Organization Address City/State/ZIP Code Phon e Number POWERCHART POWERCHART NA (ABNORMAL) Iron and Total Iron-Binding Capacity (03/17/2017 7:30 PM CDT) athologist Signature Iron 48 (L) 50 - 150 POWERCHART MCGDL Total Iron 319 250 - 400 POWERCHART Binding MCGDL Capacity Percent 15 14 - 50 POWERCHART Saturation Comment: Test Performed by: [facility] [address] [place] [address] Specimen (Source) Anatomical Collection Method Collection Time Re ceived Time Location / / Volume Laterality Blood 03/17/2017 7:30 PM CDT Kevin Valentin M.D. LAB BLOOD ADD-ON Performing Organization Address City/[facility] Phon e Number POWERCHART POWERCHART NA Ferritin (03/17/2017 7:30 PM CDT) athologist Signature Ferritin, S 47 24 - 336 POWERCHART MCGL Comment: Test Performed by: [address] [address] Specimen (Source) Anatomical Collection Method Collection Time Re ceived Time Location / / Volume Laterality Blood 03/17/2017 7:30 PM CDT Kevin Valentin M.D. LAB BLOOD ADD-ON Performing Organization Address City/[facility]/ZIP Code Phon e Number POWERCHART POWERCHART NA (ABNORMAL) Vitamin B12 and Folate (03/17/2017 7:30 PM CDT) athologist Signature Folate, S >20.0 >=4.0 MCGL POWERCHART Comment: Test Performed by: [facility] [address] [place] [address] Vitamin B12 Assay, S >1400 (H) 180 - 914 NGL POWER CHART Specimen (Source) Anatomical Collection Method Collection Time Re ceived Time Location / / Volume Laterality Blood 03/17/2017 7:30 PM CDT Kevin Valentin M.D. LAB BLOOD NON ADD-ON Performing Organization Address City/[facility]/ZIP Code Phon e Number POWERCHART POWERCHART NA Lipid Panel (03/17/2017 7:30 PM CDT) athologist Signature Cholesterol, 137 <=199 MGDL POWERCHART Total Comment: 2014 National Lipid Association recommen dations for Total Cholesterol in adults ages 18 and up: Desirable <200 mg/dL Borderline high 200-239 mg/dL High 240 mg/dL 2014 National Lipid Association recommen dations for Total Cholesterol in children ages 2 to 17. Acceptable <170 mg/dL Borderline High 170-199 mg/dL High 200 mg/dL HX HDL 64 >=40 MGDL POWERCHART Comment: 2013 National Lipid Association recommen dations for HDL-C in adults ages 18 and up: Low <40 mg/dL (Men) Low <50 mg/dL (Women) 2014 National Lipid Association recommen dations for HDL-C in children ages 2 to 17. Low <40 mg/dL Borderline Low 40-45 mg/dL Acceptable >45 mg/dL Triglycerides 56 <=149 MGDL POWERCHART Comment: 2013 National Lipid Association recommen dations for Triglycerides in adults ages 18 and up: Normal <150 mg/dL Borderline High 150-199 mg/dL High 200-499 mg/dL Very High 500 mg/dL 2014 National Lipid Association recommen dations for Triglycerides in children ages 2 to 9. Acceptable <75 mg/dL Borderline High 75-99 mg/dL High 100 mg/dL 2014 National Lipid Association recommen dations for Triglycerides in children ages 10 to 17. Acceptable <90 mg/dL Borderline High 90-129 mg/dL High 130 mg/dL Trigs >400mg/dL: Triglycerides >400 mg/ dL. Calculated LDL cholesterol is not valid. Non-HDL cholesterol may be used for risk assessment when triglycerides are >400mg/dL. Calculated LDL 62 <=129 MGDL POWERCHART Comment: 2013 National Lipid Association recommen dations for LDL-C in adults ages 18 and up: Desirable <100 mg/dL Above desirable 100-129 mg/dL Borderline high 130-159 mg/dL High 160-189 mg/dL Very High 190 mg/dL 2014 National Lipid Association recommen dations for LDL-C in children ages 2 to 17. Acceptable <110 mg/dL Borderline High 110-129mg/dL High 130 mg/dL LDL-C >190mg/dL: The markedly elevated LDL level is suggestive of a genetic condition such as familial hypercholesterolemia(FH) or familial defective apolipoprotein B-100 (FDB). Molecular genetic t esting for FH and FDB [facility] American Board of Addiction [employer] (ABAM): FH/ADH Genetic Reflex Luu el (test ADHP). Acquired (non-genetic) causes of markedly increased LDL cholesterol include cholestatic liver disease due to the presence of LpX. If a genetic form of hypercholesterolemia is suspected, family studies including biochemical testing fo r lipids (total cholesterol,triglycerides, LDL cholesterol and HDL cholesterol) are recommended. ??Please contact the laboratory at or the on-line test catalog at [employer] [facility] for information about how to order these wandy ts or to speak with a genetic counselor. Further interpretation would require clinical information. Total Cholesterol/HDL Ratio 2 PO WERCHART Specimen (Source) Anatomical Collection Method Collection Time Re ceived Time Location / / Volume Laterality Blood 03/17/2017 7:30 PM CDT Kevin Valentin M.D. LAB BLOOD ADD-ON Performing Organization Address City/State/ZIP Code Phon e Number POWERCHART POWERCHART NA Hemoglobin A1c (03/17/2017 7:30 PM CDT) P athologist Signature Hemoglobin A1c, 5.6 <=5.6 A1C POWERCHART B Specimen (Source) Anatomical Collection Method Collection Time Re ceived Time Location / / Volume Laterality Blood 03/17/2017 7:30 PM CDT Kevin Valentin M.D. LAB BLOOD ADD-ON Performing Organization Address City/State/ZIP Code Phon e Number POWERCHART POWERCHART NA (ABNORMAL) CMP (Comprehensive Metabolic Panel) (03/17/2017 7:30 PM CDT) Patholo gist Method Time Signature Alanine 28 7 - 55 UL POWERCHART Amniotransferase, LD Albumin, S 3.8 3.5 - 5.0 POWERCHART GDL Alkaline 53 45 - 115 POWERCHART Phosphatase, S UL Aspartate 26 8 - 48 UL POWERCHART Aminotransferase (AST), S Sodium, S 138 135 - 145 POWERCHART MMOLL Potassium, S 4.3 3.5 - 5.1 POWERCHART MMOLL Chloride, S 100 98 - 107 POWERCHART MMOLL CO2 Total 27 22 - 29 POWERCHART MMOLL BUN (Blood Urea 30 (H) 8 - 24 POWERCHART Nitrogen), S MGDL Creatinine 1.20 0.74 - POWERCHART 1.35 MGDL Calcium, Total, S 9.2 8.6 - POWERCHART 10.3 MGDL Anion Gap 11 10 - 20 POWERCHART MMOLL HXeGFR (MDRD) >60 >=60 POWERCHART [id number] 2 eGFR Black/ >60 >=60 POWERCHART [place] [id number] 2 Bilirubin, Total, S 0.3 0.1 - 1.0 POWERCHART MGDL Total Protein, S 6.7 6.3 - 7.9 POWERCHART GDL Glucose 100 70 - 139 POWERCHART MGDL Specimen (Source) Anatomical Collection Method Collection Time Re ceived Time Location / / Volume Laterality Blood 03/17/2017 7:30 PM CDT Kevin Valentin M.D. LAB BLOOD ADD-ON Performing Organization Address City/State/ZIP Code Phon e Number POWERCHART POWERCHART NA documented in this encounter Visit Diagnoses Not on filedocumented in this encounter Additional Health Concerns Assessment Noted Time PHQ-9 Depression Total Score: 18 02/14/2013 9:53 AM CD T documented as of this encounter Care Teams Learning Technologist Relationship Specialty Start Date End Date Kevin Bullock M.D. PCP - General 02/19/17 02/20/[id number] [id number] documented as of this encounter
--- OUTSIDE RECORDS SUMMARY | 2022-07-29 10:51 | XMS_ITS | Encounter Summary ---
:1960 Author Organization [facility] Address [address] [place] [address] Care Team Providers Name Role Phone Unavailable Primary Care Provider Unavailable Encounter Details Date Type Department Care Team Description 01/16/2017 Hospital Encounter HX NO MAPPING Social History [...] mg tablet documented as of this encounter Plan of Treatment Not on filedocumented as of this encounter Visit Diagnoses Not on filedocumented in this encounter Additional Health Concerns Assessment Noted Time PHQ-9 Depression Total Score: 18 02/14/2013 9:53 AM CD T documented as of this encounter
--- OUTSIDE RECORDS SUMMARY | 2022-07-29 10:51 | XMS_ITS | Encounter Summary ---
:1960 Author Organization [facility] Address [address] [place] [address] Care Team Providers Name Role Phone Unavailable Primary Care Provider Unavailable Encounter Details Date Type Department Care Team Description 12/10/2016 Hospital Encounter HX NO MAPPING Social History [...]
--- OUTSIDE RECORDS SUMMARY | 2022-07-29 10:51 | XMS_ITS | Encounter Summary ---
:1960 Author Organization [facility] Address [address] [place] [address] Care Team Providers Name Role Phone Kevin Bullock M.D. Primary Care Provider [phone] Encounter Details Date Type Department Care Team Description 06/02/2017 Hospital Encounter HX [facility] Kevin Aguirre M.D. [address] [place] [address] [phone] (Wo rk) Social History Tobacco Use Types Packs/Day Years Used Date Smoking Tobacco: Never Sex Assigned at Date Recorded Not on file documented as of this encounter Last Filed Vital Signs Vital Sign Reading Time Taken Comments Blood Pressure 129/79 06/02/2017 6:04 PM CDT Pulse 60 06/02/2017 6:04 PM CDT Temperature - - Respiratory Rate 16 06/02/2017 5:59 PM CDT Oxygen Saturation - - Inhaled Oxygen Concentration - - Weight - - Height 183 cm (6' 0.05) 06/02/2017 6:04 PM CDT Body Mass Index - - documented in this encounter Medications at Time of Discharge Medication Sig Dispensed Refills Start Date End Date PEDIATRIC MULTIVITAMIN Take 4 tablets by 0 2015 NO.76 ([place]ONES mouth daily. COMPLETE ORAL) allopurinol Take 1 tablet by 0 03/25/201708/04/ 017 (for_ZYLOPRIM) 300 mg mouth daily. tablet CYANOCOBALAMIN, VITAMIN Inject 1 mL under the 0 0 09/30/2016 08/04/2017 B-12, INJ skin every 30 (thirty) days. ferrous sulfate 325 mg Take 1 tablet by 0 015 11/24/2017 (65 mg iron) tablet mouth 2 (two) times a day. furosemide (LASIX) 40 mg Take 1 tablet by 0 10/0108/04/2017 tablet mouth daily. gabapentin gabapentin 300 mg 0 03/29/2017 017 (for_NEURONTIN) 300 mg oral capsule See capsule Instructions, Take 1 cap at bedtime x 1 wk, then take 1 cap 2x daily x 1 wk, then take 1 cap 3x per day, 90 cap(s), 6 Refill(s) gabapentin Take 1 tablet by 0 06/02/2017 08/04/20 17 (for_NEURONTIN) 600 mg mouth 2 (two) times a tablet day. lisinopril Take 1 tablet by 0 09/30/2016 08/04/20 17 (for_PRINIVIL,ZESTRIL) mouth daily. 10 mg tablet documented as of this encounter Progress Notes Kevin Bullock M.D. - 06/02/2017 6:43 AM CDT Clinic Full Note CHIEF COMPLAINT/REASON FOR VISIT Follow up. HISTORY OF PRESENT ILLNESS Ed presents today for follow-up. He reports that his legs continue to burn from the knee down and sometimes he feels like he is trying to lift 1 million lb with each leg. He is taking gabapentin 2 tablets twice daily but does not think that is helpful. He has almost fallen off of his truck due to hislegs and also shoulder pain. He generally feels weak. He is checking his blood pressure regularly with readings from 90-119 systolic. Pulse rate is in the 60s to 80s. He has occasional lightheadedness that can occur in any position including position changes. Left shoulder aches and his left pinky continues to be numb. Breathing is hard at times. He has occasional left-sided chest pain. He denies anyblack or bloody stools. No nausea. He will have some back pain if he is laying down but this is not a consistent issue. He is sleeping good and denies any snoring. Leg swelling fluctuates and he thinksthat he has gained some weight. He has a chronic runny nose which is new since the pacemaker. He checks his blood sugar weekly with readings from 80 up to 120. He is taking the iron when he remembers. He states that he can easily fall asleep if he sits down. He continues to think that most of the symptoms are related to his pacemaker. MEDICATIONS allopurinol 300 mg oral tablet, 300 [...] 1 tab(s), Chewed, 2xDay, 1 refills, * gabapentin 300 mg oral capsule, See Instructions, Take 1 cap at bedtime x 1 wk, then take 1 cap 2x daily x 1 wk, then take 1 cap 3x per day, 6 refills, * Lasix 40 mg oral tablet, 40 mg, 1 tab(s), Leg Swelling, PO, Daily, 3 refills, * * indicates non-compliance ALLERGIES Cipro Influenza Virus Vaccine (diarrhea) PAST MEDICAL HISTORY Chronic Block Heart NOS BPH without urinary obstruction DM II (or NOS), uncontrolled DM2 Eczema Erectile dysfunction* Flutter Atrial NOS Hyperlipidemia Hypertension essential, NOS Kidney stone Optic disc cupping Pacemaker Cardiac S/P Pyelonephritis Unspecified Adjustment Reaction Urge Incontinence Historical Fracture Closed Radial head Morbid Obesity (BMI > 40) (V85.4) Obesity NOS Tinea cruris. Tinea pedis* PROCEDURES/SURGICAL HISTORY Echocardiogram (01/05/2017), Gastric bypass (11/19/2014), Cystoscopy (12/26/2009), PSA, TOTAL SCREENING (12/26/2009), Discectomy (02/19/1989). SOCIAL HISTORY Date Time: 06/02/2017 17:59 Tobacco: Smoking Status: Never smoker Exposure: Care provider denies smoking in home, Other: never Alcohol: Use: No Results Found Recreational Drugs: Use: None Type: No Results Found FAMILY HISTORY Mother ( at 72 year(s)):Positive: Diabetes mellitus; Kidney disease; Myocardial infarction Father ( at 88 year(s)):Positive: Congestive heart failure; Hypertension SYSTEMS REVIEW As per HPI. VITAL SIGNS T: 36.4 ??C (Core) HR: 60 RR: 16 BP: 132 / 82 (supine) BP: 130 / 78 (standing) SpO2: 100% HT: 183 cm PHYSICAL EXAMINATION General: Alert and oriented. No acute distress. Neck: Supple. No lymphadenopathy. No carotid bruits. Cardiovascular exam: Regular rate and rhythm. Normal S1 and S2. No murmurs, rubs, or gallops. Lungs: Clear to auscultation bilaterally. Chest: Pacemaker incision has now fully healed. Extremities: Trace pedal edema. Patient has tenderness over the left anterior shoulder. Negative Yeboah Tony test and Neer impingement test. He has 5/5 strength with shoulder abduction bilaterally. LAB RESULTS -----HEMATOLOGY----- Hgb: 11.1 g/dL Low (06/02/17) IMPRESSION/REPORT/PLAN 1. Neuropathy Peripheral NOS Discussed that I think his pain is related to peripheral neuropathy. Vitamin B12 level was high at his last appointment. Diabetes could certainly be an explanation but we should also obtain a serum protein electrophoresis to complete our workup. TSH was previously normal. Depending on these results, we will potentially refer to Neurology. He does deal with some back pain as well. We are going to increase gabapentin to 900 mg twice daily. Ordered: OV Est Pt Level 4 - 05750 - 25 min Protein Electrophoresis*-Cades 38107 2. Anemia Hemoglobin has improved. Patient is not consistently taking the iron but this is likely having someaffect. Ordered: OV Est Pt Level 4 - 10494 - 25 min 3. Pacemaker Cardiac S/P Pacemaker site is well healed. Patient continues to believe that many of his current symptoms are related to his pacemaker although I cannot definitely explain how that would occur unless it is simplyrelated to altered physiology with a normal heartbeat. Ordered: OV Est Pt Level 4 - 73444 - 25 min 4. DM2 Blood sugars are acceptable by report. Patient will be due for an A1c in 3 months. Ordered: OV Est Pt Level 4 - [id number] - 25 min 5. Hypertension HTN NOS Patient occasionally has lower blood pressures. Orthostatics were obtained today and normal. Ordered: OV Est Pt Level 4 - [id number] - 25 min Orders: furosemide, 1-2 tab(s), PO, Daily, Leg Swelling, # 180 tab(s), 3 Refill(s), Maintenance, Pharmacy: [id number] gabapentin, 300 mg = 1 cap(s), PO, 2xDay, with 600mg tablet, # 90 cap(s), 6 Refill(s), Maintenance,Pharmacy: [id number] gabapentin, 600 mg = 1 tab(s), PO, 2xDay, with 300mg tab, # 180 tab(s), 11 Refill(s), Maintenance, Pharmacy: [id number] Electronically Signed By: KEVIN BULLOCK MD On: 06/03/2017 06:47 AM Source: [employer] Document Id: [id number] documented in this encounter Nursing Notes Alvina Langston LPiliP.N. - 06/02/2017 6:45 PM CDT Orthostatics Orthostatics Entered On: 06/02/2017 18:51 CDT Performed On: 06/02/2017 18:45 CDT by ALVINA LANGSTON LPN Orthostatics Systolic Blood Pressure Supine : 132 mmHg Diastolic Blood Pressure Supine : 82 mmHg Pulse Supine : 60 /min Patient Response Supine : No response Systolic Blood Pressure Standing Immediate : 130 mmHg Diastolic Blood Pressure Standing Immediate : 78 mmHg Pulse Standing Immediate : 64 /min Patient Response Standing Immediate : No response Systolic Blood Pressure Standing 1 Minute : 131 mmHg Diastolic Blood Pressure Standing 1 Minute : 86 mmHg Pulse Standing 1 Minute : 66 /min Patient Response Standing 1 Minute : No response Systolic Blood Pressure Standing 3 Minute : 134 mmHg Diastolic Blood Pressure Standing 3 Minute : 85 mmHg Pulse Standing 3 Minute : 64 /min Patient Response Standing 3 Minute : No response BP Location Orthostatics : Left upper extremity Blood Pressure Cuff Size Orthostatics : Regular ALVINA LANGSTON LPN - 06/02/2017 18:45 CDT Source: [employer] Document Id: [id number] CDT!20 documented in this encounter Miscellaneous Notes Telephone Encounter - Conversion, Historical Provider Ser - 07/09/2017 2:37 PM CDT *Phone Message Document Contains Addenda Addendum by VINEET RAMIREZ LPN on July 09, 2017 15:52:03 CDT please see other message dated 07/09 regarding the subject below. From: HADLEY PARISH (DE Family Medicine Tool And Die Maker/Designer) To: DE Family Medicine Nurse Bennett; Sent: 07/09/2017 14:37:41 CDT Subject: *Phone Message Caller is: ( x ) Patient ( ) Mother ( ) Father ( ) Spouse ( ) Daughter ( ) Son ( ) Pharmacy ( ) Other: Physician: Duncan Patient MRN #: Reason for Call: Ed called to see why no one has called him back to set up his pre op.. I tried to schedule him an dobie man appt and he says that will not work. He says it has to be 21st or 28th at 6:15 or 6:30 in the evening. He will not see any other doctor, but Duncan. He is very upset no one has tried to call him back and wants someone to call him right away. [phone] and keep trying. Message: Advice/Action: Source used: ( ) Verbalizes understanding [...] back cell phone number ( ) Source: [facility] POWERCHART Document Id: [id number] Telephone Encounter - Brit Felder - 06/20/2017 9:17 AM CDT *Phone Message Document Contains Addenda Addendum by HARVEY REDDY LPN on June 23, 2017 11:14:59 CDT Rere called patient, no answer left message. Addendum by HARVEY REDDY LPN on June 23, 2017 10:41:54 CDT From: HARVEY REDDY LPN (DE Family Medicine Nurse Guajardo) To: ANA CRISTINA FERRELL RN; Sent: 06/23/2017 10:41:54 CDT Subject: FW: *Phone Message From: BRIT FELDER (DE Family Medicine Tool And Die Maker/Designer) To: [place] Family Medicine Nurse Guajardo; Sent: 06/20/2017 09:17:38 CDT Subject: *Phone Message Caller is: (X ) Patient ( ) Mother ( ) Father ( ) Spouse ( ) Daughter ( ) Son ( ) Pharmacy ( ) Other: Physician: Duncan Patient MRN #: Reason for Call: still feels awful from pacemaker. He is taking 5 pills per morning and 5 per evening. They are not doing anything. He will take the pacemaker out himself if he needs to. Message: Advice/Action: Source used: ( ) Verbalizes understanding [...] back cell phone number ( ) Source: [facility] POWERCHART Document Id: [id number] Miscellaneous - Kevin Bullock M.D. - 06/09/2017 7:10 PM CDT referral Document Contains Addenda Addendum by RAYMOND DIAZ on June 11, 2017 10:43:33 CDT From: RAYMOND DIAZ (DE Clinic District Manager Postal Service/Referrals) To: KEVIN BULLOCK MD; Sent: 06/11/2017 10:43:33 CDT Subject: RE: referral Referral faxed to [facility]. They will contact patient to schedule an appointment. From: KEVIN BULLOCK MD To: DE Clinic District Manager Postal Service/Referrals; Sent: 06/09/2017 19:10:00 CDT Subject: referral Referral Request Date: 06/09/2017 Provider: Kevin Whyte [facility] Type of Referral/Department: Neurology Specific Clinical Question: Peripheral neuropathy Pertinent History: _ Best Appointment Days to Avoid: Best Time of day: Date/Time of appointment made: Sign off: Source: [facility] POWERCHART Document Id: [id number] Miscellaneous - Conversion, Historical Provider Ser - 06/06/2017 6:54 PM CDT *General Message Document Contains Addenda Addendum by BERTRAM JACOBSON RN on June 08, 2017 12:15:16 CDT RN tried to reach patient to again relay message from PCP that he needs to follow-up with his neurologist for these issues. Busy signal on home phone, and no answer on cell, message left for pt to return call. Addendum by HARVEY REDDY LPN on June 08, 2017 08:37:43 CDT From: HARVEY REDDY LPN (DE Family Medicine Nurse Guajardo) To: ART RN Nurse; Sent: 06/08/2017 08:37:43 CDT Subject: FW: *General Message Forwarded to RN line to triage From: SHIRLENE SEXTON To: ART Family Medicine Nurse Guajardo; Sent: 06/06/2017 18:54:11 CDT Subject: *General Message Sense of balance was really bad today, 06/06/2017, fell once, near falls/caught himself 3 other times. When fueling my truck today, the PD pulled in and gave me a breathathilizer thinking I was intoxicated because of how I was walking. Wants this issue resolved. He would not give me an idea as to what he wants done. He was rude and uncooperative. Source: [facility] [employer] Document Id: [id number] Miscellaneous - Kevin Bullock M.D. - 06/02/2017 7:15 PM CDT Ambulatory Patient Summary [address] [id number] Visit Information Name: NOEMÍ LUNA [facility] Number: [id number] Current Date: 06/02/2017 19:15:22 Physicians Attending Provider: KEVIN BULLOCK MD Primary [...] day furosemide (Lasix 40 mg oral tablet) 1-2 tab(s), Oral, once a day Leg Swelling Routed to [facility] , gabapentin (gabapentin 300 mg oral capsule) 1 cap, Oral, two times a day with 600mg tablet This is aCHANGE gabapentin (gabapentin 600 mg oral tablet) 1 Tablet(s), Oral, two times a day with 300mg tab Routed to [facility] , multivitamin with minerals (Flintstones Complete oral tablet, chewable) 1 Tablet(s), Chewed, two times a day Stop Taking the Following Medications: Medication list as of 06-02-17 19:15 Attention: If you have any medications at [...] Electronically Signed By: KEVIN BULLOCK MD Signed On:02-JUN-2017 19:15:10 Your Allergies & Intolerances Substance Reaction Symptoms Category Comments Cipro Drug Influenza Virus Vaccine diarrhea Drug Your Problem List Problem Status Onset Comments Hyperlipidemia Active 12/28/2009 Hypertension essential, NOS Active 12/28/2009 Erectile dysfunction* Active 09/30/13 onset unknown BPH without urinary obstruction Active 09/30/13 onset unknown Urge Incontinence Active 09/30/13 onset unknown Eczema Active 09/30/13 onset unknown Optic disc cupping Active 03/31/2011 Unspecified Adjustment Reaction Active 05/05/2013 12/03/13 Unspecified adjustment reaction Flutter Atrial NOS Active Pacemaker Cardiac S/P Active Block Heart NOS Active Your Upcoming Appointments Date Time [...] if you dont have one. Go to [email or web address] and click on Create Your Account. Then, follow the directions to complete the online form. Youll be asked for your [facility] number which you can find at the top of this document. Your Goals/Additional instructions: Source: [facility] POWERCHART Document Id: [id number] Miscellaneous - Kevin Bullock M.D. - 06/02/2017 7:15 PM CDT Ambulatory Discharge Medication List [address] [id number] Visit Information Name: NOEMÍ LUNA [facility] Number: [id number] Current Date: 06/02/2017 19:15:19 Attending Provider: KEVIN BULLOCK MD Primary Care [...] day furosemide (Lasix 40 mg oral tablet) 1-2 tab(s), Oral, once a day Leg Swelling [facility] , gabapentin (gabapentin 300 mg oral capsule) 1 cap, Oral, two times a day with 600mg tablet This is aCHANGE gabapentin (gabapentin 600 mg oral tablet) 1 Tablet(s), Oral, two times a day with 300mg tab [facility] , multivitamin with minerals (Flintstones Complete oral tablet, chewable) 1 Tablet(s), Chewed, two times a day Stop Taking the Following Medications: Medication list as of 06-02-17 19:15 Attention: If you have any medications at [...] Electronically Signed By: KEVIN BULLOCK MD Signed On:02-JUN-2017 19:15:10 Additional Information: Source: [facility] [employer] Document Id: [id number] Miscellaneous - Alvina Langston, L.P.N. - 06/02/2017 6:04 PM CDT Ambulatory Vitals Height Weight Ambulatory Vitals Height Weight Entered On: 06/02/2017 18:05 CDT Performed On: 06/02/2017 18:04 CDT by ALVINA LANGSTON LPN Vitals/Ht/Wt Peripheral Pulse Rate : 60 /min Systolic Blood Pressure : 129 mmHg Diastolic Blood Pressure : 79 mmHg NIBP Mean : 96 mmHg BP Location : Left upper extremity Blood Pressure Cuff Size : Regular Height : 183 cm(Converted to: 6 ft 0 inch(es), 72 inch(es)) ALVINA LANGSTON LPN - 06/02/2017 18:04 CDT Source: [facility] [employer] Document Id: [id number] CDT!9 Miscellaneous - Alvina Langston, L.P.N. - 06/02/2017 5:59 PM CDT Adult Barrel Loader Intake/History Adult Barrel Loader Intake/History Entered On: 06/02/2017 18:04 CDT Performed On: 06/02/2017 17:59 CDT by ALVINA LANGSTON LPN Intake Chief Complaint : Follow up. Ambulatory Intake Additional Information : Fatigue, Left- shoulder pain. Wants pacemaker out. No feeling in finger. Temperature Core : 36.4 DegC(Converted to: 97.5 DegF) (LOW) Peripheral Pulse Rate : 60 /min Respiratory Rate : 16 /min Systolic Blood Pressure : 140 mmHg Diastolic Blood Pressure : 74 mmHg NIBP Mean : 96 mmHg BP Location : Left upper extremity Blood Pressure Cuff Size : Large SpO2 : 100 % Oxygen Therapy : Room air Height : 183 cm(Converted to: 6 ft 0 inch(es), 72 inch(es)) Weight Source : Other: refused ALVINA LANGSTON LPN - 06/02/2017 17:59 CDT General Info Information Given By : Patient Preferred Communication Mode : Verbal Languages : Georgian Is Patient Female and 13-50 no hysterectomy : No ALVINA LANGSTON LPN - 06/02/2017 17:59 CDT Subjective Pain Symptoms : Yes ALVINA LANGSTON LPN 06/02/2017 17:59 CDT Pain Scale Pain Scale Verbal 0-10 : Open ALVINA LANGSTON LPN - 06/02/2017 17:59 CDT Pain Pain Assessment Grid Pain 1 Location : Shoulder Laterality : Left ALVINA LANGSTON LPN 06/02/2017 17:59 CDT Dependent Habits Exposure to Tobacco Smoke : Care provider denies smoking in home, Other: never Smoking Status : Never smoker Tobacco 2A : No Tobacco Use/Currently Using : No Tobacco Use/Last 30 Days : No Tobacco Use/Last 12 months : No ALVINA LANGSTON LPN - 06/02/2017 17:59 CDT Caffeine Use Grid Caffeine Use : Current Type : Coffee, Soft drinks Frequency : Weekly Amount : soda- weekly; coffee- 1x/week ALVINA LANGSTON LPN - 06/02/2017 17:59 CDT Recreational Drug Use Grid Drug Use : None ALVINA LANGSTON LPN 06/02/2017 17:59 CDT [facility] POWERCHART Document Id: [id number] CDT!46 Sorin Mallory RKevin. - 06/02/2017 2:50 PM CDT Visit From: SORIN WAGNER RN Sent: 06/02/2017 14:50:38 CDT Subject: Visit Attempted to call all 3 numbers for patient in chart to confirm appointment for tonight. No answer. LVM on patients personal cell. Source: [facility] [employer] Document Id: [id number] Nichelle Shoemaker - 06/01/2017 3:51 PM CDT Health Maintenance Reminder June 01, 2017 ED [place]LE [address] [facility] [id number] Dear NOEMÍ LUNA, We have developed a six-month overview of preventive and recommended services that apply to your unique health care needs. Some may be past due or may be coming due in the next three months. If youhave already scheduled any or all of these services, thank you. We recognize that this may or may not include all of your individualized health care needs; however, we are happy to help you with any and all primary care concerns you may have. Past Due Colon Cancer Screening It may be possible to bundle some of the above services together to make your visit with us more convenient. Please call [phone] to schedule services that are past due or that may shortly become due (thank you if you have already done so). We will follow up in three to six months should you have more services to schedule at that time. If you have already received any of the listed past due or upcoming services outside of [facility], please call [phone] to add them to your medical record. You may want to consider contacting your health insurance company to make sure these services are covered and find out if there will be any [id number] expense. If you have any questions about the services listed above, or if you are no longer receiving care from [facility], please contact us at [phone]. Thank you for partnering to provide you with the best care possible. We encourage you to set up your Patient Online Services account [facility]/iekvzoh-[email or web address], where you can communicate in a convenient way with us, schedule appointments, receive lab results and more. To set up your account, you will need your [facility] Number, which is [phone]. Thank you for choosing the Kevin Copeland M.D. care team for your health care needs! You are receiving this notice based on [facility]'s recommended standard for preventive care and ongoing condition-specific services you may need. If you have completed or do not believe you need these services, please contact your provider or care team to discuss this further. Sincerely, NICHELLE HOLLIS Electronic Signature Electronically Signed By: NICHELLE HOLLIS On: June 01, 2017 This document has images extracted. Source: [employer] POWERCHART Document Id: [id number] documented in this encounter Plan of Treatment Not on filedocumented as of this encounter Procedures Procedure Name Priority Date/Time Associated Diagnosis Comme nts HEMOGLOBIN, B Routine 06/02/2017 7:00 PM Results for this CDT procedure are i n the results section. ELECTROPHORESIS, Routine 06/02/2017 4:55 PM Resul ts for this PROTEIN, S CDT procedure are i n the results section. documented in this encounter Results (ABNORMAL) Hemoglobin (06/02/2017 7:00 PM CDT) P athologist Signature Hemoglobin 11.1 (L) 13.2 - 16.6 POWERCHART GDL Specimen (Source) Anatomical Collection Method Collection Time Re ceived Time Location / / Volume Laterality Blood 06/02/2017 7:00 PM CDT Kevin Copeland M.D. LAB BLOOD ADD-ON Performing Organization Address City/State/ZIP Code Phon e Number POWERCHART POWERCHART NA (ABNORMAL) Electrophoresis, Protein (06/02/2017 4:55 PM CDT) P athologist Signature Total Protein, 6.8 6.3 - 7.9 POWERCHART S GMDL Comment: Test Performed by: [facility] - [address] [address] Albumin, S 3.3 (L) 3.4 - 4.7 GMDL POWERCHART Alpha-1 Globulin 0.3 0.1 - 0.3 GMDL POWERCHA RT Alpha-2 Globulin 1.1 (H) 0.6 - 1.0 GMDL POWERCHA RT Beta-Globulin 0.9 0.7 - 1.2 GMDL POWERCHART Gamma-Globulin 1.2 0.6 - 1.6 GMDL POWERCHART A/G Ratio 0.95 POWERCHART Impression See Comment POWERCHART Comment: RESULT: No apparent monoclonal protein o n serum electrophoresis. Test Performed by: [facility] - [address] [address] Specimen (Source) Anatomical Collection Method Collection Time Re ceived Time Location / / Volume Laterality Blood 06/02/2017 4:55 PM CDT Kevin Copeland M.D. LAB BLOOD ADD-ON Performing Organization Address City/State/ZIP Code Phon e Number POWERCHART POWERCHART NA documented in this encounter Visit Diagnoses Not on filedocumented in this encounter Additional Health Concerns Assessment Noted Time PHQ-9 Depression Total Score: 18 02/14/2013 9:53 AM CD T documented as of this encounter Care Teams Nozzle Cement Sprayer Helper Relationship Specialty Start Date End Date Kevin Bullock M.D. PCP - General 02/19/17 02/20/[address] [place] [address] [phone] documented as of this encounter
--- OUTSIDE RECORDS SUMMARY | 2022-07-29 10:51 | XMS_ITS | Encounter Summary ---
:1960 Author Organization [facility] Address [address] [place] [address] Care Team Providers Name Role Phone Unavailable Primary Care Provider Unavailable Encounter Details Date Type Department Care Team Description 09/15/2015 Hospital Encounter HX [facility] Cintia Cobb M.D. 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 documented in this encounter Results Lipid Panel (09/15/2015 10:30 AM CENTRAL SUPPLY CLERK) P athologist Signature Cholesterol, 119 <=199 MGDL POWERCHART Total Comment: 2013 National Lipid Association recommen dations for Total Cholesterol in adults ages 18 and up: Desirable <200 mg/dL Borderline high 200-239 mg/dL High 240 mg/dL 2014 National Lipid Association recommen dations for Total Cholesterol in children ages 2 to 17. Acceptable <170 mg/dL Borderline High 170-199 mg/dL High 200 mg/dL HX HDL 57 >=40 MGDL POWERCHART Comment: 2013 National Lipid Association recommen dations for HDL-C in adults ages 18 and up: Low <40 mg/dL (Men) Low <50 mg/dL (Women) 2014 National Lipid Association recommen dations for HDL-C in children ages 2 to 17. Low <40 mg/dL Borderline Low 40-45 mg/dL Acceptable >45 mg/dL Triglycerides 73 <=149 MGDL POWERCHART Comment: 2014 National Lipid Association recommen dations [...] assessment when triglycerides are >400mg/dL. Calculated LDL 48 <=129 MGDL POWERCHART Comment: 2013 National Lipid [...] esting for FH and FDB is available [facility]: FH/ADH Genetic Reflex Luu el (test ADHP). Acquired (non-genetic) causes of markedly increased LDL cholesterol include cholestatic liver disease due to the presence of LpX. If a genetic form of hypercholesterolemia is suspected, family studies including biochemical testing fo r lipids (total cholesterol,triglycerides, LDL cholesterol and HDL cholesterol) are recommended. ??Please contact the laboratory at or the on-line test catalog at [employer] for information about how to order these wandy ts or to speak with a genetic counselor. Further interpretation would require clinical information. Total Cholesterol/HDL Ratio 2 PO WERCHART Specimen (Source) Anatomical Collection Method Collection Time Re ceived Time Location / / Volume Laterality Blood 09/15/2015 10:30 AM CENTRAL SUPPLY CLERK Cintia Copeland M.D. LAB BLOOD ADD-ON Performing Organization Address City/State/ZIP Code Phon e Number POWERCHART documented in this encounter Visit Diagnoses Not on filedocumented in this encounter Additional Health Concerns Assessment Noted Time PHQ-9 Depression Total Score: 18 02/14/2013 9:53 AM CD T documented as of this encounter
--- OUTSIDE RECORDS SUMMARY | 2022-07-29 10:51 | XMS_ITS | Encounter Summary ---
:[address] [facility] Address [address] [place] [address] Care Team Providers Name Role Phone Cintia Cobb M.D. Primary Care Provider [phone] Encounter Details Date Type Department Care Team Description 03/30/2017 Confidential HX RST NO MAPPING Jennifer Shaffer M.D. [address] [place], [place] [phone] (Wo rk) Social History Tobacco Use Types Packs/Day Years Used Date Smoking Tobacco: Never Sex Assigned at Date Recorded Not on file documented as of this encounter Progress Notes Jennifer Shaffer M.D. - 03/30/2017 8:41 AM CDT DEMOGRAPHIC INFORMATION Clinic Number: [id number] Patient Name: Laz Luna Age: 56 Y Birthdate: 1960 Sex: M Address: [address] [facility], [address] City: [place] [address] CONFIDENTIAL NOTE Service Date/Time: 30-Mar-2017 08:41 Provider: Jennifer Shaffer MD Pager: [phone] Service: CV Type/Desc: MIS Status: Fnl Revision #: 2 CHIEF COMPLAINT/PURPOSE OF VISIT Note created for correspondence purposes only on behalf of Mr. Zane Pineda. A letter was sent to Mr. Luna from Zane Pineda on January 27. The letter has been sent to the patient twice and has been returned as unclaimed, unable to forward, return to sender. Original: [email or web address]/[email or web address] Electronically Signed: 06-Apr-2017 18:42 by Shama Shaffer MD Clinical Notes - [id number] Id: [id number] Status: Fnl documented in this encounter Plan of Treatment Not on filedocumented as of this encounter Visit Diagnoses Not on filedocumented in this encounter Additional Health Concerns Assessment Noted Time PHQ-9 Depression Total Score: 18 02/14/2013 9:53 AM CD T documented as of this encounter Care Teams [employer] Relationship Specialty Start Date End Date Cintia Cobb M.D. PCP - General 02/19/17 02/20/[address] [place] [phone] documented as of this encounter
--- OUTSIDE RECORDS SUMMARY | 2022-07-29 10:51 | XMS_ITS | Encounter Summary ---
:1960 Author Organization [facility] Address [address] [place] [address] Care Team Providers Name Role Phone Unavailable Primary Care Provider Unavailable Encounter Details Date Type Department Care Team Description 01/19/2017 - Hospital Encounter HX [facility] Jennifer Shaffer, 01/20/2017 M.D. [address] [place] [phone] Social History Tobacco Use Types Packs/Day Years Used Date Smoking Tobacco: Never Sex Assigned at Date Recorded Not on file documented as of this encounter Last Filed Vital Signs Vital Sign Reading Time Taken Comments Blood Pressure 150/85 01/20/2017 8:00 AM NIBP - Value from [facility]. Pulse 58 01/20/2017 7:45 AM Value from [facility]. CDT Temperature - - Respiratory Rate 14 01/20/2017 11:00 Value from [facility]. AM CDT Oxygen Saturation - - Inhaled Oxygen - - Concentration Weight 86 kg (189 lb 9.5 01/19/2017 12:46 Vital sign result oz) PM CDT from [facility]. Height 183 cm (6' 0.05) 01/19/2017 12:46 Vital sign result PM CDT from [facility]. Body Mass Index 25.68 01/19/2017 12:46 PM CDT documented in this encounter Medications [...] Name Priority Date/Time Associated Comments Diagnosis DX CHEST AP OR PA AND Routine 01/20/2017 9:14 AM Results for this LATERAL 2 VIEWS CDT procedure ar e in the results section. ELECTROLYTE (CHEM 4) Routine 01/20/2017 6:01 AM R esults for this PANEL, S/P CDT procedure are i n the results section. CBC WITHOUT Routine 01/20/2017 6:01 AM Results f or this DIFFERENTIAL, B CDT procedure ar e in the results section. MAGNESIUM, S Routine 01/20/2017 6:01 AM Results f or this CDT procedure are i n the results section. ECG Routine 01/20/2017 5:46 AM Results f or this CDT procedure are i n the results section. ACT, POCT, B Routine 01/19/2017 2:30 PM Results f or this CDT procedure are i n the results section. ACT, POCT, B Routine 01/19/2017 2:09 PM Results f or this CDT procedure are i n the results section. ACT, POCT, B Routine 01/19/2017 12:48 Results for this PM CDT procedure are i n the results section. documented in this encounter Results DX Chest AP or PA and Lateral 2 Views (01/20/2017 9:14 AM CDT) Anatomical Region Laterality Modality Chest N/A Radiographic Imaging Specimen (Source) Anatomical Collection Method Collection Time Re ceived Time Location / / Volume Laterality 01/20/2017 9:14 AM CDT Impressions 01/20/2017 9:17 AM CDT Since 01/05/2017, new AV pacemaker. No pneumothorax. 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 Chest otherwise negative. Electronically signed by: ?? Christian Donaldson MD [id number] 20-Jan-2017 09:17 Narrative 01/20/2017 9:17 AM CDT 20-Jan-2017 09:14:00 ??Exam: Chest-- 2 Views Indications: s/p pacemaker implant ORIGINAL REPORT - 20-Jan-2017 09:17:00 EXAM: Chest 2 views: Procedure Note Sammy Donaldson M.D. - 12/02/2017Form atting of this note might be different from the original. 20-Jan-2017 09:14:00 Exam: Chest-- 2 Vie ws Indications: s/p pacemaker implant ORIGINAL REPORT - 20-Jan-2017 09:17:00 EXAM: Chest 2 views: IMPRESSION: Since 01/05/2017, new AV pacem jose. No pneumothorax. 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 Chest otherwise negative. Electronically signed by: Christian Donaldson MD [id number] 20-Jan-2017 09:17 Maricel Reyes APRN, C.N.PPili, M.S.N. IMG DIAGNOSTIC IMAG ING PROCEDURES Electrolyte (Chem 4) Panel (01/20/2017 6:01 AM CDT) Analysis Performed At Patho logist Time Signature Sodium, S 140 135 - 145 [facility] MMOL/L [facility] Potassium, S 4.4 3.6 - 5.2 [facility] MMOL/L [facility] Chloride, S 102 98 - 107 [facility] MMOL/L [facility] HX Bicarbonate, 25 22 - 29 [facility] P/S MMOL/L [facility] Creatinine 1.0 0.8 - 1.3 [facility] MG/DL [facility] eGFR >60 >60 [facility] Non-Black/Afric ML/MIN/BSA LABORATORIES - an [place] [facility] eGFR-Black/Afri >60 >60 [facility] can [place] ML/MIN/BSA LABORATORIES - [facility] BUN (Blood Urea 23 8 - 24 [facility] Nitrogen), S MG/DL [facility] Anion Gap 13 7 - 15 [facility] Glucose, S 95 70 - 140 [facility] MG/DL [facility] - [facility] Specimen Anatomical Collection Method Collection Time Receive d Time (Source) Location / / Volume Laterality 01/20/2017 6:01 AM 7 6:01 CDT AM CDT Maricel Reyes APRN, C.N.P., M.S.N. LAB BLOOD ADD-ON Performing Organization Address City/[facility]/ZIP Code Phon e Number [facility] LABORATORIES - [address] [place], [place] [address] [facility] Magnesium (01/20/2017 6:01 AM CDT) P athologist Signature Magnesium, S 2.1 1.7 - 2.3 [facility] MG/DL [facility] Specimen Anatomical Collection Method Collection Time Receive d Time (Source) Location / / Volume Laterality 01/20/2017 6:01 AM 7 6:01 CDT AM CDT Maricel Reyes APRN, C.N.P., M.S.N. LAB BLOOD ADD-ON Performing Organization Address City/State/[facility] Code Phon e Number [facility] LABORATORIES - [address] [place] [phone] [facility] (ABNORMAL) CBC without Differential (01/20/2017 6:01 AM CDT) Patholo gist Method Time Signature Hemoglobin 11.5 (L) 13.5 - [facility] 17.5 G/DL [facility] Hematocrit 34.0 (L) 38.8 - [facility] 50.0 % [facility] RBC Distrib 15.0 11.8 - [facility] Width 15.6 % [facility] Platelet Count 131 (L) 150 - 450 [facility] X10(9)/L [facility] Leukocytes 7.2 3.5 - [facility] 10.5 LABORATORIES - X10(9)/L [facility] Erythrocytes 3.52 (L) 4.32 - [facility] 5.72 LABORATORIES - X10(12)/L [facility] MCV 96.6 (H) 81.2 - [facility] 95.1 FL [facility] Specimen Anatomical Collection Method Collection Time Receive d Time (Source) Location / / Volume Laterality 01/20/2017 6:01 AM 7 6:01 CDT AM CDT Maricel Reyes APRN, C.N.P., M.S.N. LAB BLOOD ADD-ON Performing Organization Address City/[facility]/ZIP Code Phon e Number [facility]ATORIES - [address] [place], [place] [address] [facility] ECG 12 Lead (01/20/2017 5:46 AM CDT) Specimen (Source) Anatomical Collection Method Collection Time Re ceived Time Location / / Volume Laterality 01/20/2017 5:46 AM CDT Narrative HISTORICAL [facility] CONVERSION - 8:43 AM CDT [id number] 05:46 VENTRICULAR RATE 57 Dual chamber electronic pacemaker Sinus rhythm When compared with ECG of 05-JAN-2017 16 :51, Significant changes have occurred [id number]^CARLOS MENDEZ^SHUKRI Procedure Note Shukri Barroso M.D. - 11/26/2017Formatt ing of this note might be different from the original. [id number] 05:46 VENTRICULAR RATE 57 Dual chamber electronic pacemaker Sinus rhythm When compared with ECG of 05-JAN-2017 16 :51, Significant changes have occurred [id number]^CARLOS MENDEZ^SHUKRI Jennifer Shaffer M.D. ECG ORDERABLES Performing Organization Address City/[facility]/ZIP Code Phon e Number HX RAYMUNDO CONVERSION HISTORICAL [facility] CONVERSION (ABNORMAL) ACT (Activated Clotting Time), POCT (01/19/2017 2:30 PM CDT) [facility] Method Time Signature Activated 177 (H) 84 - 139 [facility] Clotting Time, SEC LABORATORIES - POCT [facility] Specimen Anatomical Collection Method Collection Time Receive d Time (Source) Location / / Volume Laterality 01/19/2017 2:30 PM 7 2:30 CDT PM CDT Historical Provider LAB POCT ORDERABLES - DEVICE Performing Organization Address City/[facility]/ZIP [facility] [place] [place] Phon e Number [facility]ATORIES - [address] [place], [place] [address] [facility] (ABNORMAL) ACT (Activated Clotting Time), POCT (01/19/2017 2:09 PM CDT) [facility] [employer] Method Time Signature Activated 238 (H) 84 - 139 [facility] Clotting Time, [facility] - POCT [facility] Specimen Anatomical Collection Method Collection Time Receive d Time (Source) Location / / Volume Laterality 01/19/2017 2:09 PM 7 2:09 CDT PM CDT Historical Provider LAB POCT ORDERABLES - DEVICE Performing Organization Address City/[facility] Code Phon e Number [facility]IES - [address] [place] [address] [facility] (ABNORMAL) ACT (Activated Clotting Time), POCT (01/19/2017 12:48 PM CDT) [facility] gist Method Time Signature Activated 287 (H) 84 - 139 [facility] Clotting Time, [facility] - POCT [facility] Specimen Anatomical Collection Method Collection Time Receive d Time (Source) Location / / Volume Laterality 01/19/2017 12:48 01/19/2017 PM CDT 12:48 PM CDT Historical Provider LAB POCT ORDERABLES - DEVICE Performing Organization Address City/[facility] Code Phon e Number [facility]IES - [address] [place], [place] [address] [facility] documented in this encounter Visit Diagnoses Not on filedocumented in this encounter Additional Health Concerns Assessment Noted Time PHQ-9 Depression Total Score: 18 02/14/2013 9:53 AM CD T documented as of this encounter
--- OUTSIDE RECORDS SUMMARY | 2022-07-29 10:51 | XMS_ITS | Encounter Summary ---
:1960 Author Organization [facility] Address [address] [place] [address] Care Team Providers Name Role Phone Unavailable Primary Care Provider Unavailable Encounter Details Date Type Department Care Team Description 01/19/2017 Hospital Encounter HX NO MAPPING Social History [...]
--- OUTSIDE RECORDS SUMMARY | 2022-07-29 10:51 | XMS_ITS | Encounter Summary ---
:1960 Author Organization [facility] Address [address] [place] [address] Care Team Providers Name Role Phone Unavailable Primary Care Provider Unavailable Encounter Details Date Type Department Care Team Description 09/18/2015 Hospital Encounter HX [facility] [place] Kevin Aguirre M.D. [address] [place] [id number] (Wo rk) Social History Tobacco Use Types Packs/Day Years Used Date Smoking Tobacco: Never Assessed Sex Assigned at Date Recorded Not on file documented as of this encounter Last Filed Vital Signs Vital Sign Reading Time Taken Comments Blood Pressure 139/69 09/18/2015 6:28 PM [employer] Pulse 40 09/18/2015 6:28 PM [employer] Temperature - - Respiratory Rate 16 09/18/2015 6:28 PM [employer] Oxygen Saturation - - Inhaled Oxygen Concentration - - Weight 87.2 kg (192 lb 3.9 oz) 09/18/2015 6:28 PM [employer] Height 180 cm (5' 10.87) 09/18/2015 6:28 PM [employer] Body Mass Index 26.91 09/18/2015 6:28 PM [employer] documented in this encounter Medications at Time of Discharge Medication Sig Dispensed Refills Start Date End Date ferrous sulfate 325 mg Take 1 tablet by 0 015 11/24/2017 (65 mg iron) tablet mouth 2 (two) times a day. documented as of this encounter Progress Notes Kevin Bullock M.D. - 09/18/2015 7:02 AM CST Clinic Full Note CHIEF COMPLAINT/REASON FOR VISIT Client states he's due for follow up. Discuss labs. Of note, client started Lasix again on his own, taking one tab daily but is taking AT NIGHT. Denies nocturia. HISTORY OF PRESENT ILLNESS Ed presents today for followup. He reports that he has been doing well. Energy level has been okay most days. If he is really busy, it can be a little low. He has not had any further issues with his stomach. No further melena. He denies any nausea or vomiting. He has been tolerating his diet since the bariatric surgery. He does report that he forgets to take the vitamin B12 injections when he is really busy. Blood sugars have been approximately 100 to 110. He did go back on the furosemide 1 to 2 pills in the evening depending upon how his legs and weight are doing. He does report some numbness in the left fifth finger. He denies any chest pain or palpitations. Patient also reports that the Cialishas not been beneficial for his erectile dysfunction. He notes that sometimes he really has no sensation in the genital area. MEDICATIONS allopurinol 300 mg oral tablet, 300 mg, 1 tab(s), kidney stones, PO, Daily, 1 refills amLODIPine 10 mg oral tablet, 5 mg, 0.5 tab(s), high blood pressure, PO, Daily, 1 refills Cialis 20 mg oral tablet, 20 mg, 1 tab(s), PO, Daily, PRN, 11 refills cyanocobalamin 1000 mcg/mL injectable solution, 1,000 mcg, 1 mL, vitamin B12 deficiency, Subcut., Monthly, 3 refills ferrous sulfate 325 mg (65 mg elemental iron) oral tablet, 325 mg, 1 tab(s), PO, 2xDay, 0 refills Flintstones Complete oral tablet, chewable, 1 tab(s), Chewed, 2xDay, 0 refills Lasix 40 mg oral tablet, 40 mg, 1 tab(s), Leg Swelling, PO, 2xDay, 1 refills, * Metoprolol Tartrate 25 mg oral tablet, 12.5 mg, 0.5 tab(s), PO, 2xDay, 1 refills PriLOSEC 40 mg oral delayed release capsule, 40 mg, 1 cap(s), PO, Daily, 0 refills Senna Plus, 1 tab(s), PO, 2xDay simvastatin 40 mg oral tablet, 40 mg, 1 tab(s), high cholesterolPlease advise labs needed for further refills., PO, Bedtime, 0 refills Tums 500, 2 tab(s), PO, 2xDay * indicates non-compliance ALLERGIES Cipro Influenza Virus [...] (12/26/2009), Discectomy (02/19/1989). SOCIAL HISTORY Date Time: 09/18/2015 18:28 Tobacco: Smoking Status: No Results Found Exposure: No Results Found Alcohol: Use: No Recreational Drugs: Use: None Type: No Results Found FAMILY HISTORY Mother ( at 72 year(s)):Positive: Diabetes mellitus; Kidney disease; Myocardial infarction Father:Positive: Congestive heart failure; Hypertension SYSTEMS REVIEW As per HPI. Patient has a lump on the left lower leg. VITAL SIGNS T: 36.0 ??C (Core) HR: 40 RR: 16 BP: 139 / 69 SpO2: 100% HT: 180 cm WT: 87.2 kg BMI: 26.91 PHYSICAL EXAMINATION General: Alert and oriented. No acute distress. Neck: Supple. No lymphadenopathy. No carotid bruits. Cardiovascular exam: Bradycardia. Normal S1 and S2. No murmurs, rubs, or gallops. Lungs: Clear to auscultation bilaterally. Extremities: No pedal edema. Patient has an approximately 1cm hard subcutaneous lump on the medial aspect of the left lower leg. It is not overly mobile, but has normal overlying skin. LAB RESULTS Cholesterol: 119 09/15/15 Tri 09/15/15 HDL: 57 09/15/15 LDL Calculated: 48 09/15/15 Chol/HDL Ratio: 2 09/15/15 Hgb A1c: 6.0 High 08/06/15 IMPRESSION/REPORT/PLAN 1. DM2 Blood sugars have been doing very well. Patient is no longer on medication. He does have follow up scheduled with endocrinology within the next month. Ordered: OV Est Pt Level 4 - [id number] - 25 min 2. Hypertension HTN NOS Blood pressure is acceptable today. Patient is currently on amlodipine and metoprolol. He may benefit from being on an CARMITA inhibitor in the future. Previously his creatinine had been elevated so this was stopped. Ordered: OV Est Pt Level 4 - [id number] - 25 min 3. Hyperlipidemia NOS Lipid panel is at goal. Continue simvastatin. Ordered: OV Est Pt Level 4 - [id number] - 25 min 4. Flutter Atrial NOS Patient continues to be bradycardic. He is also on a small dose of metoprolol. He is asymptomatic. Ordered: OV Est Pt Level 4 - [id number] - 25 min 5. Impotence Organic I advised patient to not take more Cialis than was prescribed. We again discussed other potential options to treat erectile dysfunction including injectable medications or implantable prostheses. Ordered: OV Est Pt Level 4 - 22529 - 25 min 6. Lump Skin Patient is going to return for an ultrasound to further assess this lump. Ordered: OV Est Pt Level 4 - [id number] - 25 min Orders: US Soft Tissue Lower Extremity Left Electronically Signed By: KEVIN KILGORE MD On: 09/20/2015 07:06 AM Source: [facility] POWERCHART Document Id: [id number] [employer] documented in this encounter Miscellaneous Notes Miscellaneous - Vineet Ramirez L.P.N. - 11/17/2016 6:33 PM CDT *General Message Document Contains Addenda Addendum by KEVIN BULLOCK MD on November 18, 2016 19:24:41 CDT From: KEVIN BULLOCK MD To: [place] RN Nurse; Sent: 11/18/2016 19:24:41 CDT Subject: RE: *General Message I tried calling 3 times in a row and no answer. 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 I confirmed this again. The ladderman recommended doing more testing which I think is very important. If hisheart rate is 35bpm on his next DOT exam, nobody is going to certify him for his DOT. He will end upneeding to do all this testing at that time and be out of work. He should do it now. I am not tryingto create problems. I am trying to take care of him. He may be able to get the other tests done and still have his surgery, but he needs to get going now. Thanks, Kevin From: VINEET RAMIREZ LPN (ID Family Medicine Nurse Bennett) To: KEVIN BULLOCK MD; Sent: 11/17/2016 18:33:53 CDT Subject: *General Message pt lvm that he went to [facility] to discuss having surgery today and they turned him down. He said he was angry and went down stairs to talk to some really powerful people within [facility] andthey told him that the ball is back in your court as you are his primary to find him another Dr. to go to or call his ins. to extend the paper work till you find someone. Pt is angry that it cost him $600 today as he could have been working instead of them wasting his time. Please call him back at [phone] and keep trying till he actually picks up as he won't answer numbers he doesn't recognise. If we call several times then he will figure out it is you trying to call. Also Preethi railroad car painter listened to message to confirm the information he was leaving. Source: [facility] POWERCHART Document Id: [id number] Electronically signed by Dayami, [facility] Partner Management Consultant [id number] at 01/31/2017 10:58 AM CDT Telephone Encounter - Conversion, Historical Provider Ser - 04/14/2016 10:20 AM CDT *Phone Message Document Contains Addenda Addendum by HARVEY REDDY LPN on April 15, 2016 13:17:09 CDT noted Addendum by KEVIN KILGORE MD on April 15, 2016 12:42:30 CDT From: KEVIN KILGORE MD To: ID Family Medicine Nurse Guajardo; Sent: 04/15/2016 12:42:30 CDT Subject: RE: *Phone Message Lasix sent to [facility] until appt on 04/29. Kevin Segura Addendum by ANGEL NGUYEN on April 14, 2016 11:40:08 CDT From: ANGEL NGUYEN (ID Family Medicine Nurse Guajardo) To: KEVIN KILGORE MD; SHIRLENE ABBOTT RN; Sent: 04/14/2016 11:40:08 CDT Subject: FW: *Phone Message I'm forwarding this to both selvin Sloan and Dr. Song as I know, Shirlene, you've been corresponding with him as of late. At least he does have an appointment scheduled......hopefully he will show up if you agree to give him enough to get him through. I'm just worried about his health going without the Lasix in the interim? Appt is next , 04/29. From: TALYA KELSEY (ID Family Medicine Electronic Service Technician) To: ID Family Medicine Nurse Guajardo; Sent: 04/14/2016 10:20:45 CDT Subject: *Phone Message Caller is: ( x ) Patient ( ) Mother ( ) Father ( ) Spouse ( ) Daughter ( ) Son ( ) Pharmacy ( ) Other: Physician: Kevin Song Patient MRN #: Reason for Call: Rx Message: Patient called stating that since he is out of his Water Pills that he has gained 30 pounds. Patient said the only way that he is able to lose the water weight ius to not eat or drink anything. Patient did state he is not eating or drinking. Patient does have an appt coming up on 04/29 however he is concerned on the weight that he will gain. Can call any number listed on patients file, however the only one that can recieve a message is his 's phone. Patient has a hard time scheduling and keeping appointments due to his hectic work schedule. Advice/Action: Source used: ( ) Verbalizes understanding [...] back cell phone number ( ) [facility] Document Id: [id number] Telephone Encounter - Conversion, Historical Provider Ser - 03/14/2016 3:11 PM CDT *Phone Message Document Contains Addenda Addendum by TIFFANY DEAN LPN on March 17, 2016 08:55:24 CDT Spoke to pt. after attempting to use both phone numbers avialable. Shared she relay to husbandhe needs to come in for a visit with pt. with an exam form his phyiscan before any refills will be issued.His shared it is a busy time of the year for him. From: TALYA KELSEY (ID Family Medicine Electronic Service Technician) To: ID Family Medicine Nurse Bennett; Sent: 03/14/2016 15:11:39 CDT Subject: *Phone Message Caller is: ( x ) Patient ( ) Mother ( ) Father ( ) Spouse ( ) Daughter ( ) Son ( ) Pharmacy ( ) Other: Physician: Kevin Kilgore MD Patient MRN #: Reason for Call: RX Message: Pt Called was cutting out on cell phone hard to get all information, pt is requesting medication refills, states he does not have anytime to come into see Dr. Song as he does not get home until after 7pm with his work schedule stated he is out of the medication. Please call pt at [phone] Advice/Action: Source used: ( ) Verbalizes understanding [...] cell phone number ( ) Source: [facility] POWERCHART Document Id: [id number] Miscellaneous - Vineet Ramirez L.P.N. - 10/18/2015 10:06 AM CST *General Message Document Contains Addenda Addendum by ANGEL NGUYEN on 22 October 2015 12:39:20 [employer] Below lasix info was relayed to patient. Addendum by VINEET RAMIREZ LPN on 22 October 2015 12:30:46 [employer] Shirlene has information regarding pt. when he calls back. Addendum by ANGEL NGUYEN on 19 October 2015 15:08:45 [employer] Left a message at his residence to please call us back. Addendum by KEVIN KILGORE MD on 19 October 2015 13:54:08 [employer] From: KEVIN KILGORE MD To: ID Family Medicine Nurse Bennett; Sent: 10/19/2015 13:54:08 [employer] Subject: RE: *General Message If his weight has increased by 2 pounds in 24 hours or 5 pounds in 1 week, he can take an extra doseof Lasix and see if that helps. If it continues to be an issue, we should see him back. Kevin Segura From: VINEET RAMIREZ LPN To: KEVIN KILGORE MD; Sent: 10/18/2015 10:06:06 [employer] Subject: *General Message pt called and stated that he wt at home has [id number] and today 189.5. He kept saying his wt was 200#'s and that was a big increase. He felt it could be water wt. When talking to him I told him 189.5 was not 200# as he was rounding up. He notes at times he takes 2 Furosimides for water wt.. Would like to know what you think about the increase in wt. Please call him after 2:00 today. He will be available then. Source: [facility] POWERCHART Document Id: [id number] Electronically signed by Conversion, [facility] Partner Management Consultant [id number] at 01/31/2017 10:58 AM CDT Miscellaneous - Kevin Bullock M.D. - 09/18/2015 7:10 PM [employer] Ambulatory Patient Summary [address] [id number] Visit Information Name: NOEMÍ LUNA [facility] Number: [id number] Current Date: 09/18/2015 19:10:50 Physicians Attending Provider: KEVIN KILGORE MD Primary [...] Tablet(s), Oral, once a day kidney stones amLODIPine (amLODIPine 10 mg oral tablet) 0.5 Tablet(s), Oral, once a day high blood pressure calcium carbonate (Tums 500) 2 Tablet(s), Oral, two times a day cyanocobalamin (cyanocobalamin 1000 mcg/mL injectable solution) 1 Milliliter, Subcutaneous, once a month vitamin B12 deficiency docusate-senna (Senna Plus) 1 Tablet(s), Oral, two times a day ferrous sulfate (ferrous sulfate 325 mg (65 mg elemental iron) oral tablet) 1 Tablet(s), Oral, two times a day *furosemide (Lasix 40 mg oral tablet) 1 Tablet(s), Oral, once a day Leg Swelling occ extra pill depending on weight/swelling This is a CHANGE metoprolol (Metoprolol Tartrate 25 mg oral tablet) 0.5 Tablet(s), Oral, two times a day multivitamin with minerals (Flintstones Complete oral tablet, chewable) 1 Tablet(s), Chewed, two times a day omeprazole (PriLOSEC 40 mg oral delayed release capsule) 1 cap, Oral, once a day simvastatin (simvastatin 40 mg oral tablet) 1 Tablet(s), Oral, once a day (at bedtime) high cholesterol Please advise labs needed for further refills. tadalafil (Cialis 20 mg oral tablet) 1 Tablet(s), Oral, once a day as needed for Erectile dysfunction Take as needed prior to anticipated sexual activity * You have let us know that you are not taking this medication as listed. Please talk with your primary care provider or the health care provider who prescribed the medication as soon as possible. Stop Taking the Following Medications: Medication list as of 09-18-15 19:10 Attention: If you have any medications at [...] Electronically Signed By: KEVIN KILGORE MD Signed On:18-SEP-2015 19:10:35 Your Allergies & Intolerances Substance Reaction Symptoms [...] if you dont have one. Go to [email or web address] and click on Create Your Account. Then, follow the directions to complete the online form. Youll be asked for your [facility] number which you can find at the top of this document. Your Goals/Additional instructions: Source: [facility] POWERCHART Document Id: [id number] [employer] Miscellaneous - Kevin Bullock M.D. - 09/18/2015 7:10 PM [employer] Ambulatory Discharge Medication List [address] [id number] Visit Information Name: NOEMÍ LUNA [facility] Number: [id number] Visit Date: 09/18/2015 19:10:49 Attending Provider: KEVIN KILGORE MD Primary Care [...] Tablet(s), Oral, once a day kidney stones amLODIPine (amLODIPine 10 mg oral tablet) 0.5 Tablet(s), Oral, once a day high blood pressure calcium carbonate (Tums 500) 2 Tablet(s), Oral, two times a day cyanocobalamin (cyanocobalamin 1000 mcg/mL injectable solution) 1 Milliliter, Subcutaneous, once a month vitamin B12 deficiency docusate-senna (Senna Plus) 1 Tablet(s), Oral, two times a day ferrous sulfate (ferrous sulfate 325 mg (65 mg elemental iron) oral tablet) 1 Tablet(s), Oral, two times a day *furosemide (Lasix 40 mg oral tablet) 1 Tablet(s), Oral, once a day Leg Swelling occ extra pill depending on weight/swelling This is a CHANGE metoprolol (Metoprolol Tartrate 25 mg oral tablet) 0.5 Tablet(s), Oral, two times a day multivitamin with minerals (Flintstones Complete oral tablet, chewable) 1 Tablet(s), Chewed, two times a day omeprazole (PriLOSEC 40 mg oral delayed release capsule) 1 cap, Oral, once a day simvastatin (simvastatin 40 mg oral tablet) 1 Tablet(s), Oral, once a day (at bedtime) high cholesterol Please advise labs needed for further refills. tadalafil (Cialis 20 mg oral tablet) 1 Tablet(s), Oral, once a day as needed for Erectile dysfunction Take as needed prior to anticipated sexual activity * You have let us know that you are not taking this medication as listed. Please talk with your primary care provider or the health care provider who prescribed the medication as soon as possible. Stop Taking the Following Medications: Medication list as of 09-18-15 19:10 Attention: If you have any medications at [...] Electronically Signed By: KEVIN KILGORE MD Signed On:18-SEP-2015 19:10:35 Additional Information: Source: [facility] POWERCHART Document Id: [id number] [employer] Miscellaneous - Angel Nguyen LPiliPPiliN. 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 Discuss labs. Of note, client started Lasix again on his own, taking one tab daily but is taking AT NIGHT. Denies nocturia. ANGEL NGUYEN - 09/18/2015 18:28 [employer] Ambulatory Intake Additional Information : Client here for follow - gastric bypass 11/21. Called in by us - states he had labs drawn on 09/15/15. Here to review. Left little finger numbness. ANGEL NGUYEN - 09/18/2015 18:36 [employer] Temperature Core : 36.0 DegC(Converted to: 96.8 DegF) (LOW) Peripheral Pulse Rate : 40 /min (<LLOW) Respiratory Rate : 16 /min Heart Rhythm : Regular Systolic Blood Pressure : 139 mmHg Diastolic Blood Pressure : 69 mmHg NIBP Mean : 92 mmHg BP Location : Left upper extremity Blood Pressure Cuff Size : Large SpO2 : 100 % Oxygen Therapy : Room air Height : 180 cm(Converted to: 5 ft 11 inch(es), 71 inch(es)) Actual Weight : 87.2 kg(Converted to: 192 lb 4 oz) Weight Source : Standing scale Dosing Weight Clinic : 87.2 kg Clinic BSA : 2.09 Body Mass Index : 26.91 kg/m2 ANGEL NGUYEN - 09/18/2015 18:28 [employer] General Info Information Given By : Patient Languages : Chinese Is Patient Female and 13-50 no hysterectomy : No ANGEL NGUYEN - 09/18/2015 18:28 [employer] Subjective Pain Symptoms : No ANGEL NGUYEN - 09/18/2015 18:28 [employer] Dependent Habits Exposure to Tobacco Smoke : Care provider denies smoking in home, Other: never Smoking Status : Never smoker Tobacco 2A : No Tobacco Use/Currently Using : No Tobacco Use/Last 30 Days : No Tobacco Use/Last 12 months : No ANGEL NGUYEN - 09/18/2015 18:28 [employer] Alcohol Use : No ANGEL NGUYEN 09/18/2015 18:36 [employer] ANGEL NGUYEN 09/18/2015 18:36 [employer] Caffeine Use Grid Caffeine Use : Current Type : Coffee, Soft drinks Frequency : Weekly Amount : soda- weekly; coffee- 1x/week ANGEL NGUYEN [place] 09/18/2015 18:28 [employer] Recreational Drug Use Grid Drug Use : None ANGEL NGUYEN [place] 09/18/2015 18:28 [employer] Source: [facility] [employer] Document Id: [id number] [employer]!5 [employer] Miscellaneous - Tiffany Dean L.P.N. - 09/10/2015 9:11 AM CST *General Message Document Contains Addenda Addendum by KEVIN KILGORE MD on 10 September 2015 10:45:50 [employer] From: KEVIN KILGORE MD To: TIFFANY DEAN LPN; Sent: 09/10/2015 10:45:50 [employer] Subject: RE: *General Message Thanks for the update. From: TIFFANY DEAN LPN To: KEVIN KILGORE MD; Sent: 09/10/2015 09:11:25 [employer] Subject: *General Message Dr. Song, pt. called and shared he got a letter about his wt. gain. He shared he feels that hiswt. gain is due to water gain. He has been taking his water pills and has wt. loss in the am approx.4 lbs.He will be seeing you . Source: [facility] POWERCHART Document Id: [id number] Electronically signed by Conversion, [facility] Partner Management Consultant [id number] at 01/31/2017 10:58 AM CDT documented in this encounter Plan of Treatment Not on filedocumented as of this encounter Visit Diagnoses Not on filedocumented in this encounter Additional Health Concerns Assessment Noted Time PHQ-9 Depression Total Score: 18 02/14/2013 9:53 AM CD T documented as of this encounter
--- OUTSIDE RECORDS SUMMARY | 2022-07-29 10:51 | XMS_ITS | Encounter Summary ---
:1960 Author Organization [facility] Address [address] [place] [address] Care Team Providers Name Role Phone Unavailable Primary Care Provider Unavailable Encounter Details Date Type Department Care Team Description 01/05/2017 Hospital Encounter HX [facility] Angeline ZABALA Cha, ei, M.D. [address] [place], [place] [phone] (Wo rk) Social History Tobacco Use Types [...] - - Height 183 cm (6' 0.05) 01/05/2017 3:57 PM CDT Body Mass Index - - [...] mg tablet documented as of this encounter Miscellaneous Notes Miscellaneous - Conversion, Historical Provider Ser - 01/05/2017 11:59 PM CDT Coding Summary-Paper Based CODING DATE: 01/09/2017 FINAL [place] [facility] STATUS: * Discharged to Home or Self Care PAYOR: Medicaid ADMIT DX: REASON FOR VISIT DX: FINAL DX: PRINCIPAL: I48.92 Unspecified atrial flutter SECONDARY: PROCEDURES DOCTOR NAME DATE NOTE: The code number assigned matches the documented diagnosis and / or procedure in the patient's chart. However, the narrative phrase printed from the coding software may appear abbreviated, or result in slightly different terminology. Coded By: DONAVAN HICKMAN Date Saved: 01/09/2017 01:03 pm Source: [facility] Document Id: [id number] documented in this encounter Plan of Treatment Not on filedocumented as of this encounter Visit Diagnoses Not on filedocumented in this encounter Additional Health Concerns Assessment Noted Time PHQ-9 Depression Total Score: 18 02/14/2013 9:53 AM CD T documented as of this encounter
--- OUTSIDE RECORDS SUMMARY | 2022-07-29 10:51 | XMS_ITS | Encounter Summary ---
:1960 Author Organization [facility] Address [address] [place] [address] Care Team Providers Name Role Phone Unavailable Primary Care Provider Unavailable Encounter Details Date Type Department Care Team Description 01/05/2017 Hospital Encounter HX [facility] Yariel Shaffer i, M.D. [address] [place], [place] [phone] (Wo rk) Social History Tobacco Use Types [...] - Height 183 cm (6' 0.05) 01/05/2017 5:30 PM CDT Body Mass Index - - [...] Encounter - Conversion, Historical Provider Ser - 04/20/2017 10:00 AM CDT *Phone Message Document Contains Addenda Addendum by ANGEL NGUYEN on April 20, 2017 12:54:53 CDT Laura Fields RN, spoke with client earlier - see messages. Addendum by VINEET RAMIREZ LPN on April 20, 2017 11:15:49 CDT No answer From: DAVONTE PRASAD ( Family Medicine Health Promotion Educator) To: [facility] Nurse [facility]; Sent: 04/20/2017 10:00:59 CDT Subject: *Phone Message Caller is: ( x ) Patient ( ) Mother ( ) Father ( ) Spouse ( ) Daughter ( ) Son ( ) Pharmacy ( ) Other: Physician: Cintia Cobb Patient MRN #: Reason for Call: Patient would like to talk /complain about several issues. Please call to discuss [phone]. Patient also left a VM- he wanted BOTH mesages put in. He does want to be called MR. Luna or Sir- only refer to him as ED. Message: Advice/Action: Source used: ( ) Verbalizes [...] back cell phone number ( ) Source: [facility] POWERCHART Document Id: [id number] documented in this encounter Plan of Treatment Not on filedocumented as of this encounter Procedures Procedure Name Priority Date/Time Associated Comments Diagnosis THYROID FUNCTION Routine 01/05/2017 5:38 PM Resul ts for this CASCADE, S CDT procedure are i n the results section. AUTOMATED Routine 01/05/2017 5:38 PM Results f or this DIFFERENTIAL, B CDT procedure ar e in the results section. CBC WITH Routine 01/05/2017 5:38 PM Results f or this DIFFERENTIAL, B CDT procedure ar e in the results section. SODIUM, S/P Routine 01/05/2017 5:38 PM Results f or this CDT procedure are i n the results section. POTASSIUM, S/P Routine 01/05/2017 5:38 PM Results for this CDT procedure are i n the results section. CREATININE WITH Routine 01/05/2017 5:38 PM Result s for this EGFR, S/P CDT procedure are i n the results section. documented in this encounter Results Automated Differential (01/05/2017 5:38 PM CDT) P athologist Signature Absolute 4.35 1.70 - POWERCHART Neutrophils 7.00 109L Lymphocytes 2.17 0.90 - POWERCHART 2.90 X109L Monocytes 0.68 0.30 - POWERCHART 0.90 X109L Eosinophils 0.31 0.05 - POWERCHART 0.50 X109L Absolute 0.07 0.00 - POWERCHART Basophil 0.30 X109L Specimen Anatomical Collection Method Collection Time Receive d Time (Source) Location / / Volume Laterality Blood 01/05/2017 5:38 PM 7 5:38 CDT PM CDT Jennifer Shaffer M.D. LAB BLOOD ADD-ON Performing Organization Address City/State/ZIP Code Phon e Number POWERCHART (ABNORMAL) CBC with Differential (01/05/2017 5:38 PM CDT) Analysis Performed At Patho logist Time Signature Leukocytes 7.6 3.5 - 10.5 POWERCHART X109L Erythrocytes 3.59 (L) 4.32 - POWERCHART 5.72 [id number] Hemoglobin 11.7 (L) 13.5 - POWERCHART 17.5 GDL Hematocrit 34.9 (L) 38.8 - POWERCHART 50.0 MCV 97.2 (H) 81.2 - POWERCHART 95.1 FL HX RDW 14.3 11.8 - POWERCHART 15.6 Platelet Count 142 (L) 150 - 450 POWERCHART X109L Specimen (Source) Anatomical Collection Method Collection Time Re ceived Time Location / / Volume Laterality Blood 01/05/2017 5:38 PM CDT Jennifer Shaffer M.D. LAB BLOOD ADD-ON Performing Organization Address City/State/ZIP Code Phon e Number POWERCHART Thyroid Function [place] (01/05/2017 5:38 PM CDT) P athologist Signature TSH, Sensitive 0.6 0.3 - 4.2 POWERCHART MIUL Comment: Test Performed by: [address] [address] Specimen (Source) Anatomical Collection Method Collection Time Re ceived Time Location / / Volume Laterality Blood 01/05/2017 5:38 PM CDT Jennifer Shaffer M.D. LAB BLOOD ADD-ON Performing Organization Address City/[facility]/ZIP Code Phon e Number POWERCHART Sodium (01/05/2017 5:38 PM CDT) athologist Signature Sodium, S 142 135 - 145 POWERCHART MMOLL Specimen (Source) Anatomical Collection Method Collection Time Re ceived Time Location / / Volume Laterality Blood 01/05/2017 5:38 PM CDT Jennifer Shaffer M.D. LAB BLOOD ADD-ON Performing Organization Address City/[facility]/ZIP Code Phon e Number POWERCHART Potassium (01/05/2017 5:38 PM CDT) P athologist Signature Potassium, S 4.7 3.5 - 5.1 POWERCHART MMOLL Specimen (Source) Anatomical Collection Method Collection Time Re ceived Time Location / / Volume Laterality Blood 01/05/2017 5:38 PM CDT Jennifer Shaffer M.D. LAB BLOOD ADD-ON Performing Organization Address City/State/ZIP Code Phon e Number POWERCHART Creatinine with eGFR (01/05/2017 5:38 PM CDT) P athologist Signature Creatinine 1.22 0.74 - POWERCHART 1.35 MGDL HXeGFR (MDRD) >60 >=60 POWERCHART [id number] eGFR >60 >=60 POWERCHART Black/ [id number] Burmese Specimen (Source) Anatomical Collection Method Collection Time Re ceived Time Location / / Volume Laterality Blood 01/05/2017 5:38 PM CDT Jennifer Shaffer M.D. LAB BLOOD ADD-ON Performing Organization Address City/State/ZIP Code Phon e Number POWERCHART documented in this encounter Visit Diagnoses Not on filedocumented in this encounter Additional Health Concerns Assessment Noted Time PHQ-9 Depression Total Score: 18 02/14/2013 9:53 AM CD T documented as of this encounter
--- OUTSIDE RECORDS SUMMARY | 2022-07-29 10:51 | XMS_ITS | Encounter Summary ---
:1960 Author Organization [facility] Address [address] [place] [address] Care Team Providers Name Role Phone Unavailable Primary Care Provider Unavailable Encounter Details Date Type Department Care Team Description 08/01/2016 Hospital Encounter HX [facility] Cintia Bullock M.D. [address] [place] [phone] (Wo rk) Social History Tobacco Use [...] - - Height 182 cm (5' 11.65) 08/01/2016 1:56 PM SEO STRATEGIST Body Mass Index - - documented in [...] of this encounter Miscellaneous Notes Miscellaneous - Cintia Bullock M.D. - 08/01/2016 3:51 PM SEO STRATEGIST Results Notification Document Contains Addenda Addendum by TIFFANY DEAN LPN on August 04, 2016 12:34:40 SEO STRATEGIST From: TIFFANY DEAN LPN ([facility] Nurse Bennett) To: CINTIA BULLOCK MD; Cc: CINTIA BULLOCK MD; Sent: 08/04/2016 12:34:40 SEO STRATEGIST Show up: 08/04/2016 12:34:00 SEO STRATEGIST Subject: RE: Results Notification Addendum by TIFFANY DEAN LPN on August 04, 2016 12:34:26 SEO STRATEGIST From: TIFFANY DEAN LPN ([facility] Nurse Guajardo) To: CINTIA BULLOCK MD; Cc: CINTIA BULLOCK MD; Sent: 08/04/2016 12:34:26 SEO STRATEGIST Show up: 08/04/2016 12:34:00 SEO STRATEGIST Subject: RE: Results Notification Addendum by TIFFANY DEAN LPN on August 04, 2016 12:34:26 SEO STRATEGIST From: TIFFANY DEAN LPN ([facility] Nurse Guajardo) To: CINTIA BULLOCK MD; Cc: CINTIA BULLOCK MD; Sent: 08/04/2016 12:34:26 SEO STRATEGIST Show up: 08/04/2016 12:34:00 SEO STRATEGIST Subject: RE: Results Notification Addendum by TIFFANY DEAN LPN on August 04, 2016 12:34:[address] Song, Spoke with pt.He is taking 2 water pills a day . He stated he could care less what happens to his kidneys. He will not see a kidney specialist. He will not go on dialysis. He will not got through what his mother went through. He will not wear compression stockings. He will not come backfor a repeat lab. If you will not give him the water pills,he will get his pills from his friend. Heshared he will play his cards that way.He also shared his swelling is not in his legs it is in abd. Thank you,Tiffany Addendum by VINEET RAMIREZ LPN on August 04, 2016 12:00:00 SEO STRATEGIST Tried calling pt at all the numbers listed on overview and the one listed with this encounter. No answer. I was able to leave a voice message on one of them and asked to call back for message. From: CINTIA BULLOCK MD To: [facility] Super[facility]; [facility]; Sent: 08/01/2016 15:51:12 SEO STRATEGIST Show up: 08/01/2016 15:49:00 SEO STRATEGIST Subject: Results Notification LM for patient to call back regarding lab results. Please ask how many water pills he is taking per day. His kidney function has gone up quite a bit which likely means that he is taking too many water pills. At this point, I would like him to take no more than 1 Lasix per day. If he has problems with swelling, he needs to wear compression stockings. He CANNOT keep taking extra pills of Lasix if his weight goes up because it is taking a huge toll on his kidneys. We need to recheck this level in one month and if it is not better, he will need to see a kidney specialist. Please let me know if patient has questions. Results: Date Result Name Ind Value Ref Range 08/01/2016 14:02 Sodium Lvl 140 mmol/L (135 - 145) 08/01/2016 14:02 Potassium Lvl (L) 3.4 mmol/L (3.6 - 4.8) 08/01/2016 14:02 Chloride 99 mmol/L (98 - 107) 08/01/2016 14:02 CO2 (H) 33 mmol/L (23 - 29) 08/01/2016 14:02 AGAP (L) 8 mmol/L (10 - 20) 08/01/2016 14:02 Glucose Lvl 124 mg/dL (70 - 139) 08/01/2016 14:02 Creatinine (H) 1.63 mg/dL (0.60 - 1.30) 08/01/2016 14:02 EGFR (MDRD) (L) 44 mL/min/1.73m2 (>=60 - ) 08/01/2016 14:02 EGFR (MDRD) (L) 53 mL/min/1.73m2 (>=60 - ) 08/01/2016 14:02 BUN (H) 52 mg/dL (7 - 18) 08/01/2016 14:02 Calcium Lvl 9.9 mg/dL (8.6 - 10.0) Source: [facility] POWERCHART Document Id: [id number] Electronically signed by Conversion, [facility] President And Cmo [id number] at 01/31/2017 11:55 PM CDT documented in this encounter Plan of Treatment Not on filedocumented as of this encounter Procedures Procedure Name Priority Date/Time Associated Diagnosis Comme nts BASIC METABOLIC Routine 08/01/2016 2:02 PM Result s for this PANEL, S/P SEO STRATEGIST procedure are i n the results section. documented in this encounter Results (ABNORMAL) BMP (Basic Metabolic Panel) (08/01/2016 2:02 PM SEO STRATEGIST) Analysis Performed At Patho logist Time Signature Sodium, S 140 135 - 145 POWERCHART MMOLL Potassium, S 3.4 (L) 3.6 - 4.8 POWERCHART MMOLL Chloride, S 99 98 - 107 POWERCHART MMOLL CO2 Total 33 (H) 23 - 29 POWERCHART MMOLL BUN (Blood Urea 52 (H) 7 - 18 POWERCHART Nitrogen), S MGDL Creatinine 1.63 (H) 0.60 - POWERCHART 1.30 MGDL Calcium, Total, 9.9 8.6 - 10.0 POWERCHART S MGDL Anion Gap 8 (L) 10 - 20 POWERCHART MMOLL HXeGFR (MDRD) 44 (L) >=60 POWERCHART [id number] eGFR 53 (L) >=60 POWERCHART Black/ [id number] Ukrainian Glucose 124 70 - 139 POWERCHART MGDL Specimen (Source) Anatomical Collection Method Collection Time Re ceived Time Location / / Volume Laterality Blood 08/01/2016 2:02 PM SEO STRATEGIST Cintia Copeland M.D. LAB BLOOD ADD-ON Performing Organization Address City/State/ZIP Code Phon e Number POWERCHART documented in this encounter Visit Diagnoses Not on filedocumented in this encounter Additional Health Concerns Assessment Noted Time PHQ-9 Depression Total Score: 18 02/14/2013 9:53 AM CD T documented as of this encounter
--- OUTSIDE RECORDS SUMMARY | 2022-07-29 10:51 | XMS_ITS | Encounter Summary ---
:1960 Author Organization [facility] Address [address] [place] [address] Care Team Providers Name Role Phone Elsewhere, Pcp Primary Care Provider Unavailable Encounter Details Date Type Department Care Team Description 01/16/2017 Confidential HX RST NO MAPPING Dilcia Donaldson M.S .N., M.H.A., R.N. Social History Tobacco Use Types Packs/Day Years Used Date Smoking Tobacco: Never Sex Assigned at Date Recorded Not on file documented as of this encounter Progress Notes Dilcia Donaldson M.S.N., M.H.A., R.N. - 01/16/2017 9:33 AM CDT DEMOGRAPHIC INFORMATION Clinic Number: [id number] Patient Name: Laz Luna Age: 56 Y Birthdate: 1960 Sex: M Address: [address] [place] [address] [address] City: [place] [address] CONFIDENTIAL NOTE Service Date/Time: 16-Jan-2017 09:33 Provider: Dilcia Donaldson, MSN, MHA, RN Pager: [phone] Service: CVHREP Type/Desc: MIS Status: Fnl Revision #: 1 CHIEF COMPLAINT/PURPOSE OF VISIT Patient called Ellen Pham RN and became upset with her for asking [facility] number. Patient then was upset because RN asked for his full name. Nurse Stage Director Dilcia Donaldson called patient back and was able to obtain information from patient to inquire what specifically patient was concerned about. Patient refused the second time to give information needed for follow up. Nurse digital product manager informedpatient without name and birthday no other information could be given. Patient then was able to giveneeded verifications. Patient informed procedure on Thursday for ablation. Patient would be admitted overnight and discharged Thursday late afternoon. Patient also informed if he lives greater than 30 minutes from [place] will need to stay in [place] until Thursday. Patient states can he fly to [facility] for father in laws . Per information obtained from wig sales consultant can fly after Thursdaybut unable to lift greater than 5 pounds for 2 weeks. Patient hung up on nurse digital product manager after information was given . Original: mgj Electronically Signed: 16-Jan-2017 09:47 by Tony Donaldson, MSN, CARL, RN Clinical Notes - [id number] Id: [id number] Status: Fnl Ellen Pham R.N. - 01/16/2017 9:07 AM CDT DEMOGRAPHIC INFORMATION Clinic Number: [id number] Patient Name: Laz Luna Age: 56 Y Birthdate: 1960 Sex: M Address: [address] [place] [address] City: [place] [address] CONFIDENTIAL NOTE Service Date/Time: 16-Jan-2017 09:07 Provider: Ellen Pham RN Pager: [phone] Service: CVHREP Type/Desc: MIS Status: Fnl Revision #: 2 CHIEF COMPLAINT/PURPOSE OF VISIT Left Message stating he had an emergency. This phone communication was initiated by a [facility] healthcare provider. The phone communication was with the patient. Phone number patient/caller is calling from or the number of the provider: [phone]. Follow-up phone number: Same as above. The patient's/caller's preferred language is Japanese. IMPRESSION/REPORT/PLAN Today I am covering for Alysia Donaldson RN. On her phone a message was left by Laz Luna at 0730 that stated he wanted a call back because he had an emergency. There was no number to call him back at andno clinic number or . Due to not being able to identify him, I was not able to call him back. Around 814, Janina Miranda, a CV Chipper Feeder called and left a message for me while I was in a meeting, stating that he called her and needed to discuss his appointments with someone because he had an emergency. She had a number for me to call him back at. I called Ed today and I asked him if I could look up his chart and did he know his clinic number. Hereplied, no he didn't know his clinic number. I told him I would have to look him up by his name then, and proceeded to ask him if his full name was Bogdan. He responded by yelling into the phone Don't swear at me. I said, Excuse me, I'm trying to look up your chart so I can help you and I need to know your full name to do that, is your full name Bogdan?, He responded to me by yelling again stating Don't swear at me! I responded to him by saying, Sir, if you are going to be rude and refuse to allow me to look up your chart, I'm going to hang up. He said back to me, You are being rude because you called me Sir and I'm going to report you and then he hung up. I see he is scheduled today for a RODO with an ablation on Thursday. I'm unsure at this point if he intends to keep these appointments. I have let my milling supervisor, Dilcia Donaldson, know about this phone call and she was going to try to follow up with him. RESPONSE TO EDUCATION /INFORMATION GIVEN. Patient/caller unable to teach back. TYPE OF PHONE CALL. Telephone follow-up. 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
--- OUTSIDE RECORDS SUMMARY | 2022-07-29 10:51 | XMS_ITS | Encounter Summary ---
:[address] [facility] Address [address] [place] [address] Care Team Providers Name Role Phone Cintia Cobb M.D. Primary Care Provider [phone] Encounter Details Date Type Department Care Team Description 02/05/2017 Confidential HX RST NO MAPPING Jennifer Shaffer M.D. [address] [place], [place] [phone] (Wo rk) Social History Tobacco Use Types Packs/Day Years Used Date Smoking Tobacco: Never Sex Assigned at Date Recorded Not on file documented as of this encounter Progress Notes Jennifer Shaffer M.D. - 02/05/2017 10:08 AM CDT DEMOGRAPHIC INFORMATION Clinic Number: [id number] Patient Name: Laz Luna Age: 56 Y Birthdate: 1960 Sex: M [address] [facility] City: [place] [address] CONFIDENTIAL NOTE Service Date/Time: 05-Feb-2017 10:08 Provider: Jennifer Shaffer MD Pager: [phone] Service: CV Type/Desc: MIS Status: Fnl Revision #: 1 CHIEF COMPLAINT/PURPOSE OF VISIT Note created for correspondence purposes only on behalf of Mr. Zane Pineda. Original: maxwell/[email or web address] Electronically Signed: 04-Mar-2017 10:34 by Shama Shaffer MD Clinical Notes - [id number] Id: [id number] Status: Fnl documented in this encounter Plan of Treatment Not on filedocumented as of this encounter Visit Diagnoses Not on filedocumented in this encounter Additional Health Concerns Assessment Noted Time PHQ-9 Depression Total Score: 18 02/14/2013 9:53 AM CD T documented as of this encounter Care Teams Brand Inspector Relationship Specialty Start Date End Date Cintia Cobb M.D. PCP - General 02/19/17 02/20/[address] [place] [phone] documented as of this encounter
--- OUTSIDE RECORDS SUMMARY | 2022-07-29 10:51 | XMS_ITS | Encounter Summary ---
:1960 Author Organization [facility] Address [address] [place] [address] Care Team Providers Name Role Phone Unavailable Primary Care Provider Unavailable Encounter Details Date Type Department Care Team Description 04/07/2016 Hospital Encounter HX [facility] Angélica Jolley M.D. [address] [place], [place] [phone] (Wo rk) Social History [...] - - Height 182 cm (5' 11.65) 04/07/2016 5:06 PM CDT Body Mass Index - - [...] Associated Comments Diagnosis LIPID PANEL, S Routine 04/07/2016 6:05 Results fo r this PM CDT procedure are i n the results section. GLUCOSE, P Routine 04/07/2016 6:05 Results for this PM CDT procedure are i n the results section. AUTOMATED DIFFERENTIAL, Routine 04/07/2016 6:05 R esults for this B PM CDT procedure are i n the results section. 25-HYDROXYVITAMIN D2 AND Routine 04/07/2016 6:05 Results for this D3, S PM CDT procedure are i n the results section. CBC WITH DIFFERENTIAL, B Routine 04/07/2016 6:05 Results for this PM CDT procedure are i n the results section. ASPARTATE Routine 04/07/2016 6:05 Results for this AMINOTRANSFERASE (AST), PM CDT proc edure are in S/P the results section. HEMOGLOBIN A1C, B Routine 04/07/2016 6:05 Results for this PM CDT procedure are i n the results section. FERRITIN, S Routine 04/07/2016 6:05 Results for this PM CDT procedure are i n the results section. CREATININE WITH EGFR, Routine 04/07/2016 6:05 Res ults for this S/P PM CDT procedure are i n the results section. CALCIUM, TOT, S/P Routine 04/07/2016 6:05 Results for this PM CDT procedure are i n the results section. ALBUMIN, S/P Routine 04/07/2016 6:05 Results for this PM CDT procedure are i n the results section. documented in this encounter Results Automated Differential (04/07/2016 6:05 PM CDT) P athologist Signature Absolute 4.17 1.70 - POWERCHART Neutrophils 7.00 109L Lymphocytes 1.55 0.90 - POWERCHART 2.90 X109L Monocytes 0.55 0.30 - POWERCHART 0.90 X109L Eosinophils 0.12 0.05 - POWERCHART 0.50 X109L Absolute 0.02 0.00 - POWERCHART Basophil 0.30 X109L Specimen Anatomical Collection Method Collection Time Receive d Time (Source) Location / / Volume Laterality Blood 04/07/2016 6:05 PM 6 6:05 CDT PM CDT Authorizing Provider Result Thom Jolley M.D. LAB BLOOD ADD-ON Performing Organization Address City/State/ZIP Code Phon e Number POWERCHART (ABNORMAL) CBC with Differential (04/07/2016 6:05 PM CDT) Analysis Performed At Patho logist Time Signature Leukocytes 6.4 3.5 - 10.5 POWERCHART X109L Erythrocytes 3.53 (L) 4.32 - POWERCHART 5.72 [id number] Hemoglobin 11.4 (L) 13.5 - POWERCHART 17.5 GDL Hematocrit 33.7 (L) 38.8 - POWERCHART 50.0 MCV 95.5 (H) 81.2 - POWERCHART 95.1 FL HX RDW 13.5 11.8 - POWERCHART 15.6 Platelet Count 137 (L) 150 - 450 POWERCHART X109L Specimen (Source) Anatomical Collection Method Collection Time Re ceived Time Location / / Volume Laterality Blood 04/07/2016 6:05 PM CDT Renetta Jolley M.D. LAB BLOOD ADD-ON Performing Organization Address City/State/ZIP Code Phon e Number POWERCHART Lipid Panel (04/07/2016 6:05 PM CDT) P athologist Signature Cholesterol, 120 <=199 MGDL POWERCHART Total Comment: 2013 National Lipid Association recommen dations for Total Cholesterol in adults ages 18 and up: Desirable <200 mg/dL Borderline high 200-239 mg/dL High 240 mg/dL 2014 National Lipid Association recommen dations for Total Cholesterol in children ages 2 to 17. Acceptable <170 mg/dL Borderline High 170-199 mg/dL High 200 mg/dL HX HDL 56 >=40 MGDL POWERCHART Comment: 2014 National Lipid Association recommen dations for HDL-C in adults ages 18 and up: Low <40 mg/dL (Men) Low <50 mg/dL (Women) 2014 National Lipid Association recommen dations for HDL-C in children ages 2 to 17. Low <40 mg/dL Borderline Low 40-45 mg/dL Acceptable >45 mg/dL Triglycerides 56 <=149 MGDL POWERCHART Comment: 2014 National Lipid [...] assessment when triglycerides are >400mg/dL. Calculated LDL 53 <=129 MGDL POWERCHART Comment: 2013 National Lipid Association recommen dations for LDL-C in adults ages 18 and up: Desirable <100 mg/dL Above desirable 100-129 mg/dL Borderline high 130-159 mg/dL High 160-189 mg/dL Very High 190 mg/dL 2013 National Lipid Association recommen dations for LDL-C in children ages 2 to 17. Acceptable <110 mg/dL Borderline High 110-129mg/dL High 130 mg/dL LDL-C >190mg/dL: The markedly elevated LDL level is suggestive of a genetic condition such as familial hypercholesterolemia(FH) or familial defective apolipoprotein B-100 (FDB). Molecular genetic t esting for FH and FDB is available [facility]: FH/ADH Genetic Reflex Luu el (test ADHP). Acquired (non-genetic) causes of markedly increased LDL cholesterol include cholestatic liver disease due to the presence of LpX. If a genetic form of hypercholesterolemia is suspected, family studies including biochemical testing fo r lipids (total cholesterol,triglycerides, LDL cholesterol and HDL cholesterol) are recommended. ??Please contact the laboratory at or the on-line test catalog at [email or web address] for information about how to order these wandy ts or to speak with a genetic counselor. Further interpretation would require clinical information. Total Cholesterol/HDL Ratio 2 PO WERCHART Specimen (Source) Anatomical Collection Method Collection Time Re ceived Time Location / / Volume Laterality Blood 04/07/2016 6:05 PM CDT Authorizing Provider Result Thom Jolley M.D. LAB BLOOD ADD-ON Performing Organization Address City/State/ZIP Code Phon e Number POWERCHART Hemoglobin A1c (04/07/2016 6:05 PM CDT) P athologist Signature Hemoglobin A1c, 5.6 <=5.6 A1C POWERCHART B Specimen (Source) Anatomical Collection Method Collection Time Re ceived Time Location / / Volume Laterality Blood 04/07/2016 6:05 PM CDT Renetta Jolley M.D. LAB BLOOD ADD-ON Performing Organization Address City/State/ZIP Code Phon e Number POWERCHART (ABNORMAL) Glucose (04/07/2016 6:05 PM CDT) P athologist Signature Glucose 146 (H) 70 - 139 POWERCHART MGDL Specimen (Source) Anatomical Collection Method Collection Time Re ceived Time Location / / Volume Laterality Blood 04/07/2016 6:05 PM CDT Renetta Jolley M.D. LAB BLOOD ADD-ON Performing Organization Address City/State/ZIP Code Phon e Number POWERCHART (ABNORMAL) Creatinine with eGFR (04/07/2016 6:05 PM CDT) [facility] Signature Creatinine 1.55 (H) 0.60 - POWERCHART 1.30 MGDL HXeGFR (MDRD) 46 (L) >=60 POWERCHART [id number] eGFR 56 (L) >=60 POWERCHART Black/ [id number] Georgian Specimen (Source) Anatomical Collection Method Collection Time Re ceived Time Location / / Volume Laterality Blood 04/07/2016 6:05 PM CDT Renetta Jolley M.D. LAB BLOOD ADD-ON Performing Organization Address City/[facility]/ZIP Code Phon e Number POWERCHART Ferritin (04/07/2016 6:05 PM CDT) athologist Signature Ferritin, S 102 24 - 336 POWERCHART MCGL Comment: Test Performed by: [facility] [place] [address] Pinion Sorter: Rene Gomez II, M.D., Ph.D. Specimen (Source) Anatomical Collection Method Collection Time Re ceived Time Location / / Volume Laterality Blood 04/07/2016 6:05 PM CDT Authorizing Provider Result Thom Jolley M.D. LAB BLOOD ADD-ON Performing Organization Address City/State/ZIP Code Phon e Number POWERCHART Calcium, Total (04/07/2016 6:05 PM CDT) athologist Signature Calcium, Total, 9.5 8.6 - 10.0 POWERCHART S MGDL Specimen (Source) Anatomical Collection Method Collection Time Re ceived Time Location / / Volume Laterality Blood 04/07/2016 6:05 PM CDT Renetta Jolley M.D. LAB BLOOD ADD-ON Performing Organization Address City/State/ZIP Code Phon e Number POWERCHART (ABNORMAL) AST (Aspartate Aminotransferase) (04/07/2016 6:05 PM CDT) Patholo gist Method Time Signature Aspartate 51 (H) 8 - 48 POWERCHART Aminotransferase UNITL (AST), S Specimen (Source) Anatomical Collection Method Collection Time Re ceived Time Location / / Volume Laterality Blood 04/07/2016 6:05 PM CDT Renetta Jolley M.D. LAB BLOOD ADD-ON Performing Organization Address City/State/ZIP Code Phon e Number POWERCHART Albumin (04/07/2016 6:05 PM CDT) P athologist Signature Albumin, S 4.2 3.5 - 5.0 POWERCHART GDL Specimen (Source) Anatomical Collection Method Collection Time Re ceived Time Location / / Volume Laterality Blood 04/07/2016 6:05 PM CDT Renetta Jolley M.D. LAB BLOOD ADD-ON Performing Organization Address City/[facility]/ZIP Code Phon e Number POWERCHART 25-Hydroxyvitamin D2 and D3 (04/07/2016 6:05 PM CDT) P athologist Signature HX25 HYDROXY D2 <4.0 NGML POWERCHART 25-Hydroxy D3 46 NGML POWERCHART Vitamin D, S 46 NGML POWERCHART Comment: REFERENCE VALUE------ 25-HYDROXY D TOTAL (D2+D3) Optimum level s in the healthy population are 20-50, patients with bone disease may benefit from higher levels within this r vivienne. Test Performed by: [address] [address] Pinion Sorter: Rene Gomez II, M.D., Ph.D. Specimen (Source) Anatomical Collection Method Collection Time Re ceived Time Location / / Volume Laterality Blood 04/07/2016 6:05 PM CDT Renetta Jolley M.D. LAB BLOOD ADD-ON Performing Organization Address City/State/ZIP Code Phon e Number POWERCHART documented in this encounter Visit Diagnoses Not on filedocumented in this encounter Additional Health Concerns Assessment Noted Time PHQ-9 Depression Total Score: 18 02/14/2013 9:53 AM CD T documented as of this encounter
--- OUTSIDE RECORDS SUMMARY | 2022-07-29 10:51 | XMS_ITS | Encounter Summary ---
:1960 Author Organization [facility] Address [address] [place] [address] Care Team Providers Name Role Phone Unavailable Primary Care Provider Unavailable Encounter Details Date Type Department Care Team Description 01/05/2017 Hospital Encounter HX [facility] Angeline LECHUGA Cha, ei, M.D. [address] [place], [place] [phone] (Wo rk) Social History Tobacco Use Types [...] - Height 183 cm (6' 0.05) 01/05/2017 4:36 PM CDT Body Mass Index - - [...] Summary-Paper Based CODING DATE: 01/09/2017 FINAL [place] [facility] STATUS: * Discharged to Home or [...] Coded By: DONAVAN HICKMAN Date Saved: 01/09/2017 04:56 pm Source: [employer] Document Id: [id number] documented in this encounter Plan of Treatment Not on filedocumented as of this encounter Procedures Procedure Name Priority Date/Time Associated Diagnosis Comme nts ECG Routine 01/05/2017 4:51 PM Results f or this CDT procedure are i n the results section . documented in this encounter Results ECG 12 Lead (01/05/2017 4:51 PM CDT) Specimen (Source) Anatomical Collection Method Collection Time Re ceived Time Location / / Volume Laterality 01/05/2017 4:51 PM CDT [facility] - 01/05/2017 4:51 PM CDT Test Reason : EKG Blood Pressure : / mmHG Vent. Rate : 034 BPM ? Atrial Rate : 000 BPM ?? P-R Int : 000 ms ?QRS D ur : 120 ms ?QT Int : 494 ms ? P-R-T Axe s : 000 -38 035 degrees ?? QTc Int : 371 ms Atrial flutter with complete heart block and with junctional escape rhythm Low voltage QRS in limb leads Incomplete right bundle branch block Nonspecific ST and T wave abnormality When compared with ECG of 17-NOV-2016 12 :47, No significant change in data has occurr ed ?? Referred By: LEÓN CROWLEY ? Confirmed By:MARTHA JARAMILLO ?? Procedure Note Provider, Keely Gonzalez - 02/26/2017F ormatting of this note might be different from the original. Test Reason : EKG Blood Pressure : / mmHG Vent. Rate : 034 BPM Atrial Rate : 000 B PM P-R Int : 000 ms QRS Dur : 120 ms QT Int : 494 ms P-R-T Axes : 000 -38 03 5 degrees QTc Int : 371 ms Atrial flutter with complete heart block and with junctional escape rhythm Low voltage QRS in limb leads Incomplete right bundle branch block Nonspecific ST and T wave abnormality When compared with ECG of 17-NOV-2016 12 :47, No significant change in data has occurr ed Referred By: LEÓN CROWLEY Confirmed By:Abby JARAMILLO MD Martha Jaramillo M.D. ECG ORDERABLES Performing Organization Address City/State/ZIP Code Phon e Number [facility] [address] [place] [id number] documented in this encounter Visit Diagnoses Not on filedocumented in this encounter Additional Health Concerns Assessment Noted Time PHQ-9 Depression Total Score: 18 02/14/2013 9:53 AM CD T documented as of this encounter
--- OUTSIDE RECORDS SUMMARY | 2022-07-29 10:52 | XMS_ITS | Encounter Summary ---
:1960 Author Organization [facility] Address [address] [place] [address] Care Team Providers Name Role Phone Unavailable Primary Care Provider Unavailable Encounter Details Date Type Department Care Team Description 08/04/2015 Hospital Encounter HX [facility] Cintia Cobb M.D. 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 documented in this encounter Results (ABNORMAL) Hemoglobin (08/04/2015 10:45 AM SHIPPING ASSISTANT) athologist Signature Hemoglobin 12.4 (L) 13.5 - 17.5 POWERCHART GDL Specimen (Source) Anatomical Collection Method Collection Time Re ceived Time Location / / Volume Laterality Blood 08/04/2015 10:45 AM SHIPPING ASSISTANT Cintia Copeland M.D. LAB BLOOD ADD-ON Performing Organization Address City/State/ZIP Code Phon e Number POWERCHART documented in this encounter Visit Diagnoses Not on filedocumented in this encounter Additional Health Concerns Assessment Noted Time PHQ-9 Depression Total Score: 18 02/14/2013 9:53 AM CD T documented as of this encounter
--- OUTSIDE RECORDS SUMMARY | 2022-07-29 10:52 | XMS_ITS | Encounter Summary ---
:1960 Author Organization [facility] Address [address] [place] [address] Care Team Providers Name Role Phone Unavailable Primary Care Provider Unavailable Encounter Details Date Type Department Care Team Description 05/21/2015 Hospital Encounter HX [facility] Cintia Cobb M.D. [address] [place] [phone] (Wo rk) Social History Tobacco Use [...] - - Height 185 cm (6' 0.84) 05/21/2015 6:27 PM CDT Body Mass Index - - documented in this encounter Medications at Time of Discharge Medication Sig Dispensed Refills Start Date End Date ferrous sulfate 325 mg Take 1 tablet by 0 015 11/24/2017 (65 mg iron) tablet mouth 2 (two) times a day. 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 Pills are not appropriate for himbecause he no longer has the portion of the stomach that absorbs the Vit B12. 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 Monthly vitamin B12 deficiency Qty: 4 mL Refills: 3 Substitutions Allowed Route To Pharmacy - [id number] Pt would like to switch to oral pills from injection if appropriate for him. Unsure how that switches over so did not propose. [facility] pharm request Source: [facility] POWERCHART Document Id: [id number] Electronically signed by Conversion, [facility] Pickle Water Pump Operator [id number] at 02/02/2017 7:04 PM CDT Miscellaneous - Shirlene Abbott RPiliNPili - 05/22/2015 8:00 AM CDT Blood sugar readings Document Contains Addenda Addendum by SHIRLENE ABBOTT RN on 22 May 2015 15:24:08 CDT Pt called, asked me to speak to Julissa Addendum by SHIRLENE ABBOTT RN on 22 May 2015 10:11:55 CDT LM for Julissa to call nurse Addendum by CINTIA KILGORE MD on 22 May 2015 09:57:12 CDT From: CNITIA KILGORE MD To: SHIRLENE ABBOTT RN; Sent: 05/22/2015 09:57:12 CDT Subject: RE: Blood sugar readings He can start checking 2-3 mornings a week. Cintia Segura From: SHIRLENE ABBOTT RN To: CINTIA KILGORE MD; SHIRLENE ABBOTT RN; Sent: 05/22/2015 08:00:39 CDT Subject: Blood sugar readings Ed would like to know how long to continue blood sugar readings? A1C 5.5 on 03-24-15. [phone] or [facility] [phone] Source: [employer] Document Id: [id number] Miscellaneous - Cintia Cobb M.D. - 05/22/2015 6:39 AM CDT Results Notification From: CINTIA KILGORE MD To: [place] Clinic Manager Exchange/Referrals; Sent: 05/22/2015 06:39:10 CDT Show up: 05/22/2015 06:39:00 CDT Subject: Results Notification Please let patient know that his hemoglobin is 9, so it continues to go up. He should continue his iron. We should recheck it in 2 weeks. ThanksCintia Results: Date Result Name Ind Value Ref Range 05/21/2015 18:36 Hgb (L) 9.0 g/dL (13.5 - 17.5) Source: [employer] Document Id: [id number] documented in this encounter Plan of Treatment Not on filedocumented as of this encounter Procedures Procedure Name Priority Date/Time Associated Diagnosis Comme nts HEMOGLOBIN, B Routine 05/21/2015 6:36 PM Results for this CDT procedure are i n the results section . documented in this encounter Results (ABNORMAL) Hemoglobin (05/21/2015 6:36 PM CDT) P athologist Signature Hemoglobin 9.0 (L) 13.5 - 17.5 POWERCHART GDL Specimen (Source) Anatomical Collection Method Collection Time Re ceived Time Location / / Volume Laterality Blood 05/21/2015 6:36 PM CDT Cintia Copeland M.D. LAB BLOOD ADD-ON Performing Organization Address City/State/ZIP Code Phon e Number POWERCHART documented in this encounter Visit Diagnoses Not on filedocumented in this encounter Additional Health Concerns Assessment Noted Time PHQ-9 Depression Total Score: 18 02/14/2013 9:53 AM CD T documented as of this encounter
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
--- OUTSIDE RECORDS SUMMARY | 2022-07-29 10:52 | XMS_ITS | Encounter Summary ---
:1960 Author Organization [facility] Address [address] [place] [address] Care Team Providers Name Role Phone Unavailable Primary Care Provider Unavailable Encounter Details Date Type Department Care Team Description 05/12/2015 Hospital Encounter HX [facility] ED Jessika Mehta , P.A.-C. [address] [place] [address] [phone] (Wo rk) Social History Tobacco Use Types Packs/Day Years Used Date Smoking Tobacco: Never Assessed Sex Assigned at Date Recorded Not on file documented as of this encounter Last Filed Vital Signs Vital Sign Reading Time Taken Comments Blood Pressure 114/69 05/12/2015 9:33 AM CDT Pulse 58 05/12/2015 9:33 AM CDT Temperature - - Respiratory Rate 20 05/12/2015 9:33 AM CDT Oxygen Saturation - - Inhaled Oxygen Concentration - - Weight 106 kg (232 lb 12.9 oz) 05/12/2015 9:47 AM CDT Height 185 cm (6' 0.84) 05/12/2015 9:47 AM CDT Body Mass Index 30.85 05/12/2015 9:47 AM CDT documented in this encounter Discharge Summaries Mark Thakkar RKevin. - 05/12/2015 12:13 PM CDT ED Discharge Instructions [address] [address] Name: NOEMÍ LUNA Date of : 1960 12:00 AM Visit Date: 05/12/2015 9:24 AM [facility] Number: [id number] Address: P.Andrew Camp [address] [place] [phone] Primary Care Provider: KEVIN KILGORE MD IMPORTANT: [facility] in [place] would like to thank you for allowing us to assist you with your healthcare needs. The following includes patient education materials and informationregarding your injury/illness. Diagnosis: Anemia NOS; Bleeding Gastrointestinal (GI) Obscure; Diabetes Mellitus Type 2; Gastritis NOS Follow-Up Instructions: Your Upcoming Appointments: Date Time Location Provider No Appointments found Patient Education Materials: Consider Using Patient Online Services Patient Online [...] if you dont have one. Go to [email or web address] and click on Create Your Account. Then, follow the directions to complete the online form. Youll be asked for your [facility] number which you can find at the top of this document. ED Tests and Procedures: Order Status Culture Urine Ordered Helicobacter pylori IgG Ab-[facility] Ordered Thyroid Stimulating Hormone Completed CBC (includes Auto Differential) Completed Comprehensive Metabolic Panel Completed Amylase Level Completed Lipase Level Completed Urinalysis with Microscopic Completed Glucose POC. Completed Automated Diff-5 Part Completed Glucose POC. Completed Discharge Prescriptions & Home Medications: Medication/Strength Dose Route Frequency Indications/Special Instructions/Comments/Notes omeprazole (PriLOSEC 40 mg oral delayed release capsule) 40 mg Oral once a day celecoxib (CeleBREX 200 mg oral capsule) 200 mg Oral once a day metoprolol (Metoprolol Tartrate 25 mg oral tablet) 12.5 mg Oral two times a day tadalafil (Cialis 20 mg oral tablet) 20 mg Oral once a day as needed for Erectile dysfunction Take as needed prior to anticipated sexual activity cyanocobalamin (cyanocobalamin 1000 mcg/mL injectable solution) 1,000 mcg Subcutaneous once a month vitamin B12 deficiency simvastatin (simvastatin 40 mg oral tablet) 40 mg Oral once a day (at bedtime) high cholesterol allopurinol (allopurinol 300 mg oral tablet) 150 mg Oral once a day kidney stones amLODIPine (amLODIPine 10 mg oral tablet) 5 mg Oral once a day high blood pressure docusate-senna (Senna Plus) 1 tab(s) Oral two times a day calcium carbonate (Tums 500) 2 tab(s) Oral two times a day multivitamin with minerals (Flintstones Complete) 1 tab(s) once a day Comment: Attention: If you have any medications [...] arrange a ride home with a responsible republican. CARLYLE Contreras ED J , or responsible republican have received this information and my questions have been answered. I have discussed any challenges I see with this plan with the nurse or physician. Patient Signature or Responsible Republican/Relationship Date Time Provider Signature Date Time IMPORTANT: [...] arrange a ride home with a responsible republican. ICARLYLE ED J , or responsible republican have received this information and my questions have been answered. I have discussed any challenges I see with this plan with the nurse or physician. Patient Signature or Responsible Republican/Relationship Date Time Provider Signature Date Time Source: [facility] rag & bone Document Id: [id number] Mark Thakkar R.N. - 05/12/2015 12:13 PM CDT ED Depart Summary [facility] Emergency Department Clinical Discharge Summary PERSON INFORMATION Name CARLYLE NOEMÍ Jim Age 54 Years 1960 12:00 AM Sex Male Language Dominican PCP KEVIN KILGORE MD Marital Status Visit Id Visit Reason Weakness or fatigue; Hyperglycemia; personal Specialty Enc Type Emergency Med Service Emergency Medicine Referred by Track Group [facility] ED Discharge 05/12/2015 12:13 PM Tracking Id [id number] Checkout 05/12/2015 12:13 PM Checkin 05/12/2015 9:24 AM Acuity 3 -Urgent Dispo Type Left Against Medical Advice Arrival 05/12/2015 9:24 AM Reg Status Complete LOS 000 02:49 Address: [address] [place] [phone] Comment: PROVIDER INFORMATION Provider Role Provider Contact Time JESSIKA RICO ED Provider 05/12/15 09:42 MARK THAKKAR CISCO CERTIFIED NETWORK ASSOCIATE Nurse 05/12/15 10:21 DIAGNOSIS Anemia NOS; Bleeding Gastrointestinal (GI) Obscure; Diabetes Mellitus Type 2; Gastritis NOS Comment: PATIENT EDUCATION INFORMATION Instructions: Follow up: Source: [facility] Document Id: [id number] documented in this encounter ED Notes Mark Thakkar R.N. - 05/12/2015 12:00 PM CDT ED Disposition Summary ED Disposition Summary Entered On: 05/12/2015 12:00 CDT Performed On: 05/12/2015 12:00 CDT by MARK THAKKAR RN ED Disposition Summary Accompanied By : Alone Mode of Discharge : Ambulatory Transportation : Private vehicle Discharge From ED With : Home Med List Printed Discharge Instructions Given to Patient : Yes Comment : patient left MARK HERCULES RN - 05/12/2015 12:00 CDT Source: [facility] Document Id: [id number] CDT!8 Mark Thakkar R.N. - 05/12/2015 12:00 PM CDT ED Pain Assessment ED Pain Assessment Entered On: 05/12/2015 12:00 CDT Performed On: 05/12/2015 12:00 CDT by MARK THAKKAR RN Pain Assessment Pain Symptoms : Yes MARK THAKKAR RN - 05/12/2015 12:00 CDT Source: [facility] POWERCHART Document Id: [id number] CDT!3 Mark Thakkar R.N. - 05/12/2015 9:48 AM CDT ED Primary Assessment Document Has Been Updated ED Primary Assessment Entered On: 05/12/2015 10:02 CDT Performed On: 05/12/2015 9:48 CDT by MARK THAKKAR RN Reason For Visit (As Of: 05/12/2015 10:02:57 CDT) Problems(Active) BPH without urinary obstruction (ICD-9-CM :600.00 ) Name of Problem: BPH without urinary obstruction; Recorder: STEVE ANDREA CNP; Confirmation: Confirmed ; Classification: Medical ; Code: 600.00 ; Contributor System: [employer] ; Last Updated: 02/15/2010 10:00 CDT ; Life Cycle Date: 02/15/2010 ; Life Cycle Status: Active ; Responsible Provider: STEVE ANDREA CNP; Vocabulary: ICD-9-CM ; Comments: 09/30/2013 11:46 - ANOOP QUEVEDO LPN onset unknown DM II (or NOS), uncontrolled (ICD-9-CM :250.02 ) Name of Problem: DM II (or NOS), uncontrolled ; Onset Date: 12/28/2009 ; Recorder: STEVE ANDREA CNP; Confirmation: Confirmed ; Classification: Medical ; Code: 250.02 ; Contributor System: [employer], an [employer]Chart ; Last Updated: 07/24/2011 10:45 BOUNTY TRAPPER ; Life Cycle Date: 12/05/2010 ; Life Cycle Status: Active ; Responsible Provider: STEVE ANDREA CNP; Vocabulary: ICD-9-CM Eczema (ICD-9-CM :692.9 ) Name of Problem: Eczema ; Recorder: STEVE ANDREA CNP; Confirmation: Confirmed ; Classification: Medical ; Code: 692.9 ; Contributor System: PowerChart ; Last Updated: 01/25/2014 16:29 CDT ; Life Cycle Date: 09/05/2010 ; Life Cycle Status: Active ; Responsible Provider: STEVE ANDREA CNP; Vocabulary: ICD-9-CM ; Comments: 09/30/2013 11:47 - ANOOP QUEVEDO LPN onset unknown Erectile dysfunction* (ICD-9-CM :607.84 ) Name of Problem: Erectile dysfunction* ; Recorder: STEVE ANDREA CNP; Confirmation: Confirmed ; Classification: Medical ; Code: 607.84 ; Contributor System: Power[employer] ; Last Updated: 12/28/2009 9:40 CDT ; Life Cycle Date: 12/28/2009 ; Life Cycle Status: Active ; Responsible Provider: STEVE ANDREA CNP; Vocabulary: ICD-9-CM ; Comments: 09/30/2013 11:46 - ANOOP QUEVEDO LPN onset unknown Flutter Atrial NOS (ICD-9-CM :427.32 ) Name of Problem: Flutter Atrial NOS ; Recorder: KEVIN KILGORE MD; Confirmation: Confirmed ; Classification: Medical ; Code: 427.32 ; Contributor System: PowerChart ; Last Updated: 07/29/2014 7:02 BOUNTY TRAPPER ; Life Cycle Status: Active ; Responsible [...] ; OnsetDate: 09/29/2012 ; Recorder: STEVE ANDREA CNP; Confirmation: Confirmed ; Classification: Medical ; Code: 813.05 ; Contributor System: PowerChart ; Last Updated: 09/30/2012 15:06 BOUNTY TRAPPER ; Life Cycle Date: 09/30/2012 ; Life Cycle Status: Active ; Responsible Provider: STEVE ANDREA CNP; Vocabulary: ICD-9-CM ; Comments: 09/30/2012 15:06 - STEVE ANDREA CNP left Genital warts (ICD-9-CM :078.19 ) Name of Problem: Genital warts ; Recorder: MARILUZ FRAGA MD; Confirmation: Confirmed ; Classification: UPDATE NEEDED ; Code: 078.19 ; Contributor System: [employer]; Last Updated: 02/11/2013 16:19 CDT ; Life Cycle Date: 02/11/2013 ; Life Cycle Status: Active ; Responsible Provider: MARILUZ FRAGA MD; Vocabulary: ICD-9-CM ; Comments: 09/30/2013 11:47 - ANOOP QUEVEDO LPN onset unknown Hyperlipidemia (ICD-9-CM :272.4 ) Name of Problem: Hyperlipidemia ; Onset Date: 12/28/2009 ; Recorder: STEVE ANDREA CNP; Confirmation: Confirmed ; Classification: Medical ; Code: 272.4 ; Last Updated: 12/28/2009 9:39 CDT ; Life Cycle Status: Active ; Responsible Provider: STEVE ANDREA CNP; Vocabulary: ICD-9-CM Hypertension essential, NOS (ICD-9-CM :401.9 ) Name of Problem: Hypertension essential, NOS ; Onset Date: 12/28/2009 ; Recorder: STEVE ANDREA CNP; Confirmation: Confirmed ; Classification: Medical ;Code: 401.9 ; Last Updated: 12/28/2009 9:39 CDT ; Life Cycle Status: Active ; Responsible Provider: STEVE ANDREA CNP; Vocabulary: ICD-9-CM Intertrigo. (ICD-9-CM :695.89 ) Name of Problem: Intertrigo. ; Onset Date: 07/14/2012 ; Recorder: MARILUZ FRAGA MD; Confirmation: Confirmed ; Classification: UPDATE NEEDED ; Code: 695.89 ; Last Updated: 07/14/2012 14:36 BOUNTY TRAPPER ; Life Cycle Status: Active ; Responsible Provider: MARILUZ FRAGA MD; Voc abulary: ICD-9-CM Morbid Obesity (BMI > 40) (V85.4) (ICD-9-CM :278.01 ) Name of Problem: Morbid Obesity (BMI > 40) (V85.4) ; Onset Date: 04/04/2013 ; Recorder: TIERRA ALLRED; Confirmation: Confirmed ; Classification: Medical ; Code: 278.01 ; Last Updated: 04/04/2013 15:42 CDT ; Life Cycle Status: Active ; Responsible Provider: TIERRA ALLRED; Vocabulary: ICD-9-CM Obesity NOS (ICD-9-CM :278.00 ) Name of Problem: Obesity NOS ; Recorder: STEVE ANDREA CNP; Confirmation: Confirmed ; Classification: Medical ; Code: 278.00 ; Contributor System: PowerChart ; Last Updated: 09/05/2010 9:56 BOUNTY TRAPPER ; Life Cycle Date: 09/05/2010 ; Life Cycle Status: Active ; Responsible Provider: STEVE ANDREA CNP; Vocabulary: ICD-9-CM ; Comments: 09/30/2013 11:ANOOP ISAAC FROZEN FOOD DEPARTMENT MANAGER onset unknown Optic disc cupping (ICD-9-CM :377.14 [...] Vocabulary: ICD-9-CM ; Comments: 09/30/2013 11:ANOOP ISAAC FROZEN FOOD DEPARTMENT MANAGER onset unknown Ulcer of skin NOS (ICD-9-CM :707.9 ) Name of Problem: Ulcer of skin NOS ; Recorder: HALEIGH SCHULTZ CNP; Confirmation: Confirmed ; Classification: UPDATE NEEDED ; Code: 707.9 ; Contributor System: [employer] ; Last Updated: 09/18/2010 8:25 BOUNTY TRAPPER ; Life Cycle Date: 09/18/2010 ; Life Cycle Status: Active ; Responsible Provider: HALEIGH SCHULTZ CNP; Vocabulary: ICD-9-CM ; Comments: 09/30/2013 11:Kenneth Valdivia QUEVEDOANOOP ROMAN FROZEN FOOD DEPARTMENT MANAGER onset unknown Unspecified Adjustment Reaction (ICD-9-CM :309.9 ) Name of Problem: Unspecified Adjustment Reaction ; Onset Date: 05/05/2013 ; Confirmation: Confirmed ; Classification: Medical ; Code: 309.9 ; Contributor System: [facility]_HX_PR_UPLOAD ; Last Updated: 12/03/2013 18:36 CDT ; Life Cycle Status: Active ; Vocabulary: ICD-9-CM ; Comments: - Unspecified adjustment reaction Urge Incontinence (ICD-9-CM :788.31 ) Name of Problem: Urge Incontinence ; Recorder: STEVE ANDREA; Confirmation: Confirmed ; Classification: Medical ; Code: 788.31 ; Contributor System: [employer], an [employer] CorporationChart ; Last Updated: 02/20/2010 8:39 CDT ; Life Cycle Date: 02/20/2010 ; Life Cycle Status: Active ; Responsible Provider: STEVE ANDREA CNP; Vocabulary: ICD-9-CM ; Comments: 09/30/2013 11:46 Shea QUEVEDOROHITANOOP R FROZEN FOOD DEPARTMENT MANAGER onset unknown Diagnoses(Active) Hyperglycemia Date: 05/12/2015 ; Diagnosis Type: Reason For Visit ; Confirmation: Complaint of ; Clinical Dx: Hyperglycemia ; Classification: Medical ; Clinical Service: Emergency medicine ; Code: PNED; Probability: 0 ; Diagnosis Code: [id number] Weakness or fatigue Date: 05/12/2015 ; Diagnosis Type: Reason For Visit ; Confirmation: Confirmed ; Clinical Dx: Weakness or fatigue ; Classification: Medical ; Clinical Service: Emergency medicine ; Code: PNED ; Probability: 0 ; Diagnosis Code: [id number] Triage Chief Complaint Description : see triage Information Given By : Patient Accompanied By : Alone Mode of Arrival ED : Private vehicle Track : Medical Languages : Dominican Patient Informed of Triage Location : Emergency department GCS Assessed : Yes Treatments Prior to Arrival : None Is Patient Female and 13-50 no hysterectomy : No MARK THAKKAR RN - 05/12/2015 9:48 CDT Lois Coma Eye Opening Response Lois : Spontaneously Best Verbal Response Lois : Oriented Best Motor Response Lois : Obeys simple commands Lois Coma Score : 15 MARK THAKKAR RN - 05/12/2015 9:48 CDT Pain Assessment Pain Symptoms : Yes MARK THAKKAR RN - 05/12/2015 9:48 CDT ED Physician Notification Time ED Physician Notification Time : 05/12/2015 9:42 CDT MARK THAKKAR RN - 05/12/2015 9:48 CDT ERIN ERIN Level 1 : No ERIN Level 2 : No ERIN Level 3 : One MARK THAKKAR RN - 05/12/2015 9:48 CDT DCP GENERIC CODE Tracking Acuity : 3 -Urgent Tracking Group : [facility] ED MARK THAKKAR RN - 05/12/2015 9:48 CDT Allergy (As Of: 05/12/2015 10:02:57 CDT) Allergies (Active) Cipro Estimated Onset Date: Unspecified ; Created By: STEVE ANDREA CNP; Reaction Status: Active ;Category: Drug ; Substance: Cipro ; Type: Allergy ; Updated By: STEVE ANDREA CNP; Reviewed Date: 05/12/2015 9:48 CDT Influenza Virus Vaccine Estimated Onset Date: Unspecified ; Reactions: diarrhea ; Created By: STEVE ANDREA CNP; Reaction Status: Active ; Category: Drug ; Substance: Influenza Virus Vaccine ; Type: Intolerance ; Updated By: STEVE ANDREA CNP; Reviewed Date: 05/12/2015 9:48 CDT ID Screen Drug Resistant Organism : No MARK THAKKAR RN - 05/12/2015 9:48 CDT Immunizations Immunizations Current : Yes Last Tetanus : < 5 years REYJAIMEMARK Jim RN - 05/12/2015 9:48 CDT Respiratory Airway : Patent Respirations : Unlabored Respiratory Pattern : Regular Oxygen Therapy : Room air AKIRADANIELLE MurraySoumya Fernandez RN - 05/12/2015 9:48 CDT Cardiovascular Heart Rhythm : Regular Skin Color : Pale Skin Description : Clammy Skin Temperature : Warm ARIANEELAINECIARAN Fernandez RN - 05/12/2015 9:48 CDT Neurological Last Well Time Known : Not applicable Level of Consciousness : Alert Orientation : Oriented x 3 Characteristics of Speech : Appropriate for age Neuro Patient Stated Symptoms : Headache, Other: Intermittent dizziness Gait : Steady Swallowing Difficulty/Aspiration Risk : None MARK THAKKAR RN - 05/12/2015 9:48 CDT ED Psychosocial Affect/Behavior : Calm, Cooperative, Appropriate Domestic Abuse Concerns : None Behavioral Health Screen/Safety Assmt : No MARK THAKKAR RN - 05/12/2015 9:48 CDT Gastrointestinal Nutrition ED : Adequate GI Detailed Assessment : Yes ARIANE MARK Fernandez RN - 05/12/2015 9:48 CDT GI Detailed GI Patient Stated Symptoms : Abdominal pain, Stools, black/bloody Stool Color : Black MARK THAKKAR RN - 05/12/2015 9:48 CDT /OB Assessment Patient Stated Symptoms : None MARK THAKKAR RN - 05/12/2015 9:48 CDT Integumentary Integumentary Patient Stated Symptoms : None MARK THAKKAR RN - 05/12/2015 9:48 CDT Musculoskeletal Fall Prevention Education Provided : Yes MARK THAKKAR RN - 05/12/2015 9:48 CDT Social Habits Tobacco Use/Currently Using : No Exposure to Tobacco Smoke : Care provider denies smoking in home Smoking Status : Never smoker MARK THAKKAR RN - 05/12/2015 9:48 CDT Alcohol Use Grid Alcohol Use : No MARK THAKKAR RN - 05/12/2015 9:48 CDT Recreational Drug Use Grid Drug Use : None MARK THAKKAR RN - 05/12/2015 9:48 CDT Source: [facility] POWERCHART Document Id: [id number]!77 Jessika Mehta P.A.-C. - 05/12/2015 9:45 AM CDT Weakness or fatigue Patient: NOEMÍ LUNA Age: 54 years Sex: Male : 1960 Author: JESSIKA RICO Attachments: None Associated Diagnosis: Anemia NOS; Diabetes Mellitus Type 2; Gastritis NOS; Bleeding Gastrointestinal(GI) Obscure Basic Information History source: Patient. Arrival mode: Private vehicle, walking. History limitation: None. Additional information: Chief Complaint from Nursing Triage Note : Chief Complaint Description 05/12/2015 9:33 CDT Chief Complaint Description 54 yo male presents to the ED via private vehicle with c/o feeling more fatigue, c/o having high blood surgar levels 120-130's, and intermittent dizziness. . History of Present Illness Pt was initially triaged to the clinic this morning but was then sent to the ED for further evaluation. A brief h/o the pt includes diabetes previously managed with insulin, GERD managed with a PPI, and HTN. Pt had bariatric surgery in November and has since passed his weight loss goal. He tells me his last Hgb A1C was around 5 and he no longer uses insulin. He came to the clinic this morning to discussconcern for increasing blood sugars. He continues to check them regularly. He tells me that in the last week he has had some readings in the 120s and 130s which were higher than usual for him. He reports normal for him, since his surgery, is 90s-110s. His diet has not greatly varied from what he has been normally eating from what he tells me. 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 He has been staying hydrated. He tells me that he spoke with the triage nurse earlier this morning regarding his concern. She asked if he has been dizzy and he told her as he tells me now that on occasion he does feel dizzy when standing. He denies vertigo sxs. Tells me they are brief and intermittent. Is not currently dizzy. On occasion, has a NJ. Tells me he had a frontal NJ earlier this morning but this has now resolved. Theseoccasional HAs are not new to him. Denies any numbness, tingling, weakness. Tells me he thinks his back is weaker as his muscles have weakened. He also checks his BP regularly and is very particular regarding the cuff size. His BPs have been in an acceptable range for him as followed by this PMD. No outright c/o feeling tired. States he's feeling alright. Has been working in the heat. Denies any recent f/c/s. He is on occasion nauseous and does vomit but this has been intermittent since his bariatric surgery and was discussed with his surgeon. He has on occasion also had some blood in his stools. He tells me he would notice his feces would be darker with occasional spots in the toilet. In the past week he has noticed his stools to be darker again without the spots of blood in the toilet. He was recently taking Celebrex for a L rib/trunk pain that he was having but did stop this medication approximately one week ago. He has had some midepigastric pain this week as well that he describes as dull and achy. This pain has not caused him to be nauseous or vomit. He isn't sure if he could have pulled a muscle or not. The pain does not change with the foods or drinks he consumes. Doesnot change with positional change or movement. He no longer takes a PPI. He does have a h/o kidney infections. He tells me that since his surgery he can go hours, nearly a day, without urninating more than twice. He has forgotten to take his B12 injection the past 2 months but did for the month of May. Review of Systems Constitutional symptoms: No fever, no chills, no sweats or no weakness. Skin symptoms: Negative except as documented in HPI. Eye symptoms: Negative except as documented in HPI. ENMT symptoms: Negative except as documented in HPI. Respiratory symptoms: Negative except as documented in HPI. Cardiovascular symptoms: Negative except as documented in HPI. Gastrointestinal symptoms: Negative except as documented in HPI. Genitourinary symptoms: Negative except as documented in HPI. Musculoskeletal symptoms: Negative except as documented in HPI. Neurologic symptoms: Negative except as documented in HPI. Psychiatric symptoms: Negative except as documented in HPI. Endocrine symptoms: Negative except as documented in HPI. Hematologic/Lymphatic symptoms: Negative except as documented in HPI. Allergy/immunologic symptoms: Negative except as documented in HPI. Health Status Allergies: Allergic Reactions (Selected) Severity Not Documented Cipro- No reactions were documented. Nonallergic Reactions (Selected) Severity Not Documented Influenza Virus Vaccine- Diarrhea.. Medications: (Selected) Prescriptions Prescribed CeleBREX 200 mg oral capsule: 200 mg, 1 cap(s), PO, Daily, 30 cap(s), 0 Refill(s) Cialis 20 mg oral tablet: 20 mg, 1 tab(s), PO, Daily, PRN: Erectile dysfunction, 6 tab(s), 11 Refill(s) Metoprolol Tartrate 25 mg oral tablet: 12.5 mg, 0.5 tab(s), PO, 2xDay, for 90 day(s), 90 tab(s), 1 Refill(s) cyanocobalamin 1000 mcg/mL injectable solution: 1,000 mcg, 1 mL, Subcut., Monthly, vitamin B12 deficiency, 4 mL Documented Medications Documented Flintstones Complete: 1 tab(s), Daily Senna Plus: 1 tab(s), PO, 2xDay Tums 500: 2 tab(s), PO, 2xDay allopurinol 300 mg oral tablet: 150 mg, 0.5 tab(s), PO, Daily, kidney stones, 90 tab(s) amLODIPine 10 mg oral tablet: 5 mg, 0.5 tab(s), PO, Daily, high blood pressure simvastatin 40 mg oral tablet: 40 mg, 1 tab(s), PO, Bedtime, high cholesterol, 90 tab(s), Pt states he has taken 2 or 3 tabs of Cialis at one time on more than one occasion.. Past Medical/ Family/ Social History Medical history: Active Fracture Closed Radial head (813.05): Onset on 09/29/2012 at 52 years. Comments: 09/30/2012 BOUNTY TRAPPER 15:06 BOUNTY TRAPPER - STEVE ANDREA BROKER ASSISTANT left Genital warts (078.19) Comments: 09/30/2013 BOUNTY TRAPPER 11:47 BOUNTY TRAPPER - QUEVEDO, ANOOP R FROZEN FOOD DEPARTMENT MANAGER onset unknown Tinea pedis* (110.4) Comments: 09/30/2013 BOUNTY TRAPPER 11:47 BOUNTY TRAPPER - ANOOP QUEVEDO FROZEN FOOD DEPARTMENT MANAGER onset unknown Tinea cruris. (110.3) Comments: 09/30/2013 BOUNTY TRAPPER 11:47 BOUNTY TRAPPER ANOOP GONZALEZ FROZEN FOOD DEPARTMENT MANAGER onset unknown. Surgical history: Cystoscopy ([id number]) on 12/26/2009 at 49 Years. Comments: 02/20/2010 08:36 - STEVE ANDREA BROKER ASSISTANT [facility] / normal PSA, TOTAL SCREENING ([id number]) on 12/26/2009 at 49 Years. Comments: 02/20/2010 08:38 - STEVE ANDREA BROKER ASSISTANT Done at [place] / Result: 1.55 Discectomy ([id number]) on 02/19/1989 at 28 Years. Comments: 12/28/2009 09:38 STEVE WELSH BROKER ASSISTANT lumbar L4-L5. Family history: Diabetes mellitus Mother () Hypertension Father Myocardial infarction Mother () Kidney disease Mother () Congestive heart failure Father . Social history: Tobacco use: Denies, Drug use: Denies, Occupation: Employed, Family/social situation: . Problem list: All Problems (Selected) Genital warts / 078.19 / Confirmed Tinea cruris. / 110.3 / Confirmed Tinea pedis* / 110.4 / Confirmed DM II (or NOS), uncontrolled / 250.02 / Confirmed Hyperlipidemia / 272.4 / Confirmed Obesity NOS / 278.00 / Confirmed Morbid Obesity (BMI > 40) (V85.4) / 278.01 / Confirmed Unspecified Adjustment Reaction / 309.9 / Confirmed Optic disc cupping / 377.14 / Confirmed Hypertension essential, NOS / 401.9 / Confirmed Flutter Atrial NOS / 427.32 / Confirmed Flutter Atrial NOS / 427.32 / Confirmed BPH without urinary obstruction / 600.00 / Confirmed Erectile dysfunction* / 607.84 / Confirmed Eczema / 692.9 / Confirmed Intertrigo. / 695.89 / Confirmed Ulcer of skin NOS / 707.9 / Confirmed Urge Incontinence / 788.31 / Confirmed Fracture Closed Radial head / 813.05 / Confirmed. Physical Examination Vital Signs: Vital Signs 05/12/2015 9:33 CDT Temperature Core 36.4 DegC LOW Peripheral Pulse Rate 58 /min LOW Respiratory Rate 20 /min SpO2 100 % Systolic Blood Pressure 114 mmHg Diastolic Blood Pressure 69 mmHg Mean Arterial Pressure 84 mmHg BP Location Left upper , Measurements 05/12/2015 9:33 CDT Height 185 cm Dosing Weight 105.50 kg NA Estimated Weight 105.5 kg Weight Source Other: home scale 05/12/2015 9:00 CDT Height 185 cm , SpO2 05/12/2015 9:33 CDT SpO2 100 % . General: Alert, no acute distress and Very talkative. Making jokes, some lewd, as is usual for him. Skin: Warm, dry and pale. Head: Normocephalic. Eye: Extraocular movements are intact. Ears, nose, mouth and throat: Oral mucosa moist. Cardiovascular: Regular rate and rhythm and Normal peripheral perfusion. Respiratory: Lungs are clear to auscultation, respirations are non-labored, breath sounds are equal and Symmetrical chest wall expansion. Chest wall: No tenderness. Musculoskeletal: Normal ROM. normal strength. Gastrointestinal: Soft, Non distended and Mild tenderness in the midepigastric region. Neurological: Alert and oriented to person, place, time, and situation, No focal neurological deficit observed, normal sensory observed, normal motor observed, normal speech observed and normal coordination observed. Psychiatric: Cooperative and appropriate mood & affect. Medical Decision Making Differential Diagnosis:Anemia, urinary tract infection, electrolyte imbalance. Documents reviewed:Emergency department nurses' notes, emergency department records. OrdersLaunch Orders Laboratory: Urinalysis with Microscopic (Order Processing): Stat, 05/12/2015 10:10 CDT, Once, Urine, Clean Void (Midstream) Lipase Level (Order Processing): Stat, 05/12/2015 10:10 CDT, Once Amylase Level (Order Processing): Stat, 05/12/2015 10:10 CDT, Once Comprehensive Metabolic Panel (Order Processing): Stat, 05/12/2015 10:10 CDT, Once CBC (includes Auto Differential) (Order Processing): Stat, 05/12/2015 10:10 CDT, Once, Launch Orders Laboratory: Helicobacter pylori IgG Ab[facility] (Order Processing): Stat, 05/12/2015 10:48 CDT, Once, Launch Orders Laboratory: TSH (Order Processing): Stat, 05/12/2015 10:50 CDT, Once, Launch Orders Pharmacy: [facility] (Order Processing): 40 mg, PO, Once, Launch Orders Laboratory: Urine Culture (Order Processing): Stat, 05/12/2015 11:44 CDT, Once, Urine, Clean Void (Midstream), Launch Orders Patient Care: Bedside Glucose POC (Nurses Order) (Order Processing): 05/12/2015 11:56 CDT, Once, 05/12/2015 11:56 CDT. Results review:Lab results : Lab View 05/12/2015 11:18 CDT UA Color Yellow UA Clarity Clear UA Spec Grav 1.015 UA pH 5.0 UA Protein 30 mg/dL UA Glucose Negative mg/dL UA Ketones Trace mg/dL UA Bili Small UA Urobilinogen 0.2 mg/dL UA Blood Negative UA Nitrite Negative UA Leuk Est Trace UR WBC 4-10 /HPF UR RBC Occ-2 /HPF UR Hyaline Cast Occasional /LPF UR Squamous Epi Cells Occ-3 /HPF UR Crystals Present 05/12/2015 10:50 CDT TSH 0.89 mIU/L 05/12/2015 10:25 CDT Hgb 8.3 g/dL LOW Hct 24.0 % LOW WBC 7.0 x10(9)/L RBC 2.65 x10(12)/L LOW MCV 90.6 fL RDW 13.9 % Platelet 161 x10(9)/L Neutro Absolute 4.64 10(9)/L Lymph Absolute 1.63 x10(9)/L [place] Absolute 0.58 x10(9)/L Eos Absolute 0.15 x10(9)/L Baso Absolute 0.03 x10(9)/L Differential? Auto Sodium Lvl 137.3 mmol/L Potassium Lvl 4.4 mmol/L Chloride 106 mmol/L CO2 23.0 mmol/L AGAP 13 mmol/L Alkaline Phosphatase 67 U/L Glucose Lvl 163 mg/dL HI Creatinine 1.05 mg/dL EGFR (MDRD) >60 mL/min/1.73m2 EGFR (MDRD) >60 mL/min/1.73m2 BUN 36 mg/dL HI Calcium Lvl 9.2 mg/dL Protein Total 5.7 g/dL LOW Albumin Lvl 3.5 g/dL AST 30 unit/L ALT 29 unit/L Bili Total 0.5 mg/dL Amylase Lvl 29 U/L Lipase Lvl 39.7 U/L 05/12/2015 9:31 CDT Glucose POC 193 mg/dL HI . Impression and Plan Diagnosis Anemia NOS (Discharge, Emergency medicine, Medical) Diabetes Mellitus Type 2 (Discharge, Emergency medicine, Medical) Gastritis NOS (Discharge, Emergency medicine, Medical) Bleeding Gastrointestinal (GI) Obscure (Discharge, Emergency medicine, Medical) Plan Condition: Left AMA. Disposition: Discharged: Left AMA. Prescriptions: Prescription Manager Cost Pharmacy: [facility] 40 mg oral delayed release capsule (Prescribe): 40 mg, 1 cap(s), PO, Daily, 30 cap(s), 0 Refill(s). Counseled: Patient, Regarding diagnosis, Regarding diagnostic results, Patient indicated understanding of instructions. Notes: Discussed findings of 8.3 hgb in setting of blood in stools and midepigastric pain. Likelihood of ulcer, gi bleed. Advised pt I would like to contact a GI surgeon to discuss this but pt refuses.He tells me he has mail he needs to get by 3:00pm and that he has work that he needs to get done this weekend before returning to work on Thursday. Declines further care and understands he will need to sign out AMA. Discussed risks of low hgb and GI bleed including syncope, . Pt agrees to restart PPI. Given first dose of Prilosec here as he will not fill his Rx until Thursday as he knows that the ph armacist that he trusts will not be there this weekend. I asked pt to return to this ED or any facility within the next 24 hours to have his hgb rechecked. He does agree to this. Advised he may need further w/u as well. Advised of UA findings. UC in progress. Trace ketones in urine in setting of DM aswell as bariatric surgery with expected weight loss/diet.. Electronically Signed By: JESSIKA RICO On: 05/12/2015 12:28 PM Modified by and Electronically Signed by: JESSIKA RICO On: 05/12/2015 10:48 AM Co-Signed By: NILO MCNEILL MD On: 05/12/2015 01:57 PM Source: [facility] POWERCHART Document Id: [id number]} Mark Thakkar R.N. - 05/12/2015 9:33 AM CDT ED Triage Assessment Document Has Been Updated ED Triage Assessment Entered On: 05/12/2015 9:43 CDT Performed On: 05/12/2015 9:33 CDT by MARK THAKKAR RN Reason For Visit (As Of: 05/12/2015 09:43:31 CDT) Problems(Active) BPH without urinary obstruction (ICD-9-CM :600.00 ) Name of Problem: BPH without urinary obstruction; Recorder: STVEE ANDREA CNP; Confirmation: Confirmed ; Classification: Medical ; Code: 600.00 ; Contributor System: Event [employer] ; Last Updated: 02/15/2010 10:00 CDT ; Life Cycle Date: 02/15/2010 ; Life Cycle Status: Active ; Responsible Provider: STEVE ANDREA CNP; Vocabulary: ICD-9-CM ; Comments: 09/30/2013 11:46 - ANOOP QUEVEDO LPN onset unknown DM II (or NOS), uncontrolled (ICD-9-CM :250.02 ) Name of Problem: DM II (or NOS), uncontrolled ; Onset Date: 12/28/2009 ; Recorder: STEVE ANDREA CNP; Confirmation: Confirmed ; Classification: Medical ; Code: 250.02 ; Contributor System: PowerChart ; Last Updated: 07/24/2011 10:45 BOUNTY TRAPPER ; Life Cycle Date: 12/05/2010 ; Life Cycle Status: Active ; Responsible Provider: STEVE ANDREA CNP; Vocabulary: ICD-9-CM Eczema (ICD-9-CM :692.9 ) Name of Problem: Eczema ; Recorder: STEVE ANDREA CNP; Confirmation: Confirmed ; Classification: Medical ; Code: 692.9 ; Contributor System: PowerChart ; Last Updated: 01/25/2014 16:29 CDT ; Life Cycle Date: 09/05/2010 ; Life Cycle Status: Active ; Responsible Provider: STEVE ANDREA CNP; Vocabulary: ICD-9-CM ; Comments: 09/30/2013 11:47 - ANOOP QUEVEDO LPN onset unknown Erectile dysfunction* (ICD-9-CM :607.84 ) Name of Problem: Erectile dysfunction* ; Recorder: STEVE ANDREA CNP; Confirmation: Confirmed ; Classification: Medical ; Code: 607.84 ; Contributor System: PowerChart ; Last Updated: 12/28/2009 9:40 CDT ; Life Cycle Date: 12/28/2009 ; Life Cycle Status: Active ; Responsible Provider: STEVE ANDREA CNP; Vocabulary: ICD-9-CM ; Comments: 09/30/2013 11:46 - QUEVEDO ANOOPVOLODYMYR Mora LPN onset unknown Flutter Atrial NOS (ICD-9-CM :427.32 ) Name of Problem: Flutter Atrial NOS ; Recorder: KEVIN KILGORE MD; Confirmation: Confirmed ; Classification: Medical ; Code: 427.32 ; Contributor System: PowerChart ; Last Updated: 07/29/2014 7:02 BOUNTY TRAPPER ; Life Cycle Status: Active ; Responsible [...] ; OnsetDate: 09/29/2012 ; Recorder: STEVE ANDREA CNP; Confirmation: Confirmed ; Classification: Medical ; Code: 813.05 ; Contributor System: PowerChart ; Last Updated: 09/30/2012 15:06 BOUNTY TRAPPER ; Life Cycle Date: 09/30/2012 ; Life Cycle Status: Active ; Responsible Provider: STEVE ANDREA CNP; Vocabulary: ICD-9-CM ; Comments: 09/30/2012 15:06 - STEVE ANDREA CNP left Genital warts (ICD-9-CM :078.19 ) Name of Problem: Genital warts ; Recorder: MARILUZ FRAGA MD; Confirmation: Confirmed ; Classification: UPDATE NEEDED ; Code: 078.19 ; Contributor System: PowerChart; Last Updated: 02/11/2013 16:19 CDT ; Life Cycle Date: 02/11/2013 ; Life Cycle Status: Active ; Responsible Provider: MARILUZ FRAGA MD; Vocabulary: ICD-9-CM ; Comments: 09/30/2013 11:47 - QUEVEDO ANOOP Mora [employer]PARTMENT MANAGER onset unknown Hyperlipidemia (ICD-9-CM :272.4 ) Name of Problem: Hyperlipidemia ; Onset Date: 12/28/2009 ; Recorder: STEVE ANDREA CNP; Confirmation: Confirmed ; Classification: Medical ; Code: 272.4 ; Last Updated: 12/28/2009 9:39 CDT ; Life Cycle Status: Active ; Responsible Provider: STEVE ANDREA CNP; Vocabulary: ICD-9-CM Hypertension essential, NOS (ICD-9-CM :401.9 ) Name of Problem: Hypertension essential, NOS ; Onset Date: 12/28/2009 ; Recorder: STEVE ANDREA CNP; Confirmation: Confirmed ; Classification: Medical ;Code: 401.9 ; Last Updated: 12/28/2009 9:39 CDT ; Life Cycle Status: Active ; Responsible Provider: STEVE ANDREA CNP; Vocabulary: ICD-9-CM Intertrigo. (ICD-9-CM :695.89 ) Name of Problem: Intertrigo. ; Onset Date: 07/14/2012 ; Recorder: MARILUZ FRAGA MD; Confirmation: Confirmed ; Classification: UPDATE NEEDED ; Code: 695.89 ; Last Updated: 07/14/2012 14:36 BOUNTY TRAPPER ; Life Cycle Status: Active ; Responsible Provider: MARILUZ FRAGA MD; Voc abulary: ICD-9-CM Morbid Obesity (BMI > 40) (V85.4) (ICD-9-CM :278.01 ) Name of Problem: Morbid Obesity (BMI > 40) (V85.4) ; Onset Date: 04/04/2013 ; Recorder: TIERRA ALLRED; Confirmation: Confirmed ; Classification: Medical ; Code: 278.01 ; Last Updated: 04/04/2013 15:42 CDT ; Life Cycle Status: Active ; Responsible Provider: TIERRA ALLRED; Vocabulary: ICD-9-CM Obesity NOS (ICD-9-CM :278.00 ) Name of Problem: Obesity NOS ; Recorder: STEVE ANDREA CNP; Confirmation: Confirmed ; Classification: Medical ; Code: 278.00 ; Contributor System: PowerChart ; Last Updated: 09/05/2010 9:56 BOUNTY TRAPPER ; Life Cycle Date: 09/05/2010 ; Life Cycle Status: Active ; Responsible Provider: STEVE ANDREA CNP; Vocabulary: ICD-9-CM ; Comments: 09/30/2013 11:ANOOP ISAAC R [employer]PARTMENT MANAGER onset unknown Optic disc cupping (ICD-9-CM :377.14 [...] Medical ; Code: 110.3 ; Contributor System: [employer] ; Last Updated: 06/01/2013 9:06 CDT ; Life Cycle Date: 06/01/2013 ; Life Cycle Status: Active ; Responsible Provider: MARILUZ FRAGA MD; Vocabulary: ICD-9-CM ; Comments: 09/30/2013 11:IKE ISAACICA RLPN onset unknown Tinea pedis* (ICD-9-CM :110.4 ) Name of Problem: Tinea pedis* ; Recorder: MARILUZ FRAGA MD; Confirmation: Confirmed ; Classification: Medical ; Code: 110.4 ; Contributor System: [employer] ; Last Updated: 02/02/2014 8:24 CDT ; Life Cycle Date: 06/01/2013 ; Life Cycle Status: Active ; Responsible Provider: MARILUZ FRAGA MD; Vocabulary: ICD-9-CM ; Comments: 09/30/2013 11:IKE ISAACICA R [employer]PART[employer] MANAGER onset unknown Ulcer of skin NOS (ICD-9-CM :707.9 ) Name of Problem: Ulcer of skin NOS ; Recorder: HALEIGH SCHULTZ CNP; Confirmation: Confirmed ; Classification: UPDATE NEEDED ; Code: 707.9 ; Contributor System: Event [employer] ; Last Updated: 09/18/2010 8:25 BOUNTY TRAPPER ; Life Cycle Date: 09/18/2010 ; Life Cycle Status: Active ; Responsible Provider: HALEIGH SCHULTZ CNP; Vocabulary: ICD-9-CM ; Comments: 09/30/2013 11:47 - ANOOP QUEVEDO [employer] DEPARTMENT MANAGER onset unknown Unspecified Adjustment Reaction (ICD-9-CM :309.9 ) Name of Problem: Unspecified Adjustment Reaction ; Onset Date: 05/05/2013 ; Confirmation: Confirmed ; Classification: Medical ; Code: 309.9 ; Contributor System: [facility]_UPL[facility]AD ; Last Updated: 12/03/2013 18:36 CDT ; Life Cycle Status: Active ; Vocabulary: ICD-9-CM ; Comments: - Unspecified adjustment reaction Urge Incontinence (ICD-9-CM :788.31 ) Name of Problem: Urge Incontinence ; Recorder: STEVE ANDREA; Confirmation: Confirmed ; Classification: Medical ; Code: 788.31 ; Contributor System: [employer] ; Last Updated: 02/20/2010 8:39 CDT ; Life Cycle Date: 02/20/2010 ; Life Cycle Status: Active ; Responsible Provider: STEVE ANDREA CNP; Vocabulary: ICD-9-CM ; Comments: 09/30/2013 11:46 - ANOOP QUEVEDO [employer] DEPARTMENT MANAGER onset unknown Diagnoses(Active) Hyperglycemia Date: 05/12/2015 ; Diagnosis Type: Reason For Visit ; Confirmation: Complaint of ; Clinical Dx: Hyperglycemia ; Classification: Medical ; Clinical Service: Emergency medicine ; Code: PNED; Probability: 0 ; Diagnosis Code: [id number] Triage Chief Complaint Description : 54 yo male presents to the ED via private vehicle with c/o feeling more fatigue, c/o having high blood surgar levels 120-130's, and intermittent dizziness. Information Given By : Patient Accompanied By : Alone Mode of Arrival ED : Private vehicle Track : Medical Languages : Dominican Vital Signs Assessed : Yes GCS Assessed : Yes Treatments Prior to Arrival : None Is Patient Female and 13-50 no hysterectomy : No MARK THAKKAR RN - 05/12/2015 9:33 CDT Vital Signs Temperature Core : 36.4 DegC(Converted to: 97.5 DegF) (LOW) Peripheral Pulse Rate : 58 /min (LOW) Respiratory Rate : 20 /min Systolic Blood Pressure : 114 mmHg Diastolic Blood Pressure : 69 mmHg NIBP Mean : 84 mmHg BP Location : Left upper extremity SpO2 : 100 % Oxygen Therapy : Room air Height : 185 cm(Converted to: 6 ft 1 inch(es)) Weight Source : Other: home scale Estimated Weight : 105.5 kg Estimated Weight Conversion to Pounds : 232.1 lb MARK THAKKAR - 05/12/2015 9:33 CDT Lois Coma Eye Opening Response Gibson : Spontaneously Best Verbal Response Lois : Oriented Best Motor Response Lois : Obeys simple commands Gibson Coma Score : 15 MARK THAKKAR RN - 05/12/2015 9:33 CDT Pain Assessment Pain Symptoms : Yes MARK THAKKAR RN - 05/12/2015 9:33 CDT Pain Scale Pain Scale Verbal 0-10 : Open MARK THAKKAR - 05/12/2015 9:33 CDT Pain Pain Assessment Grid Pain 1 Pain 2 Location : Abdomen Head Laterality : Bilateral Intensity : 2 (Comment: ache [MARK THAKKAR RN - 05/12/2015 9:33 CDT] ) 2 (Comment: ache intermittent [MARK THAKKAR - 05/12/2015 9:33 CDT] ) MARK THAKKAR - 05/12/2015 9:33 CDT MARK THAKKAR RN - 05/12/2015 9:33 CDT ED Physician Notification Time ED Physician Notification Time : 05/12/2015 9:42 CDT MARK THAKKAR - 05/12/2015 9:33 CDT ERIN ERIN Level 1 : No ERIN Level 2 : No ERIN Level 3 : Many Vital Signs ERIN : No MARK THAKKAR RN - 05/12/2015 9:33 CDT DCP GENERIC CODE Tracking Acuity : 3 -Urgent Tracking Group : [facility] ED MARK THAKKAR RN - 05/12/2015 9:33 CDT Allergy (As Of: 05/12/2015 09:43:31 CDT) Allergies (Active) Cipro Estimated Onset Date: Unspecified ; Created By: STEVE ANDREA CNP; Reaction Status: Active ;Category: Drug ; Substance: Cipro ; Type: Allergy ; Updated By: STEVE ANDREA CNP; Reviewed Date: 05/12/2015 9:43 CDT Influenza Virus Vaccine Estimated Onset Date: Unspecified ; Reactions: diarrhea ; Created By: STEVE ANDREA CNP; Reaction Status: Active ; Category: Drug ; Substance: Influenza Virus Vaccine ; Type: Intolerance ; Updated By: STEVE ANDREA CNP; Reviewed Date: 05/12/2015 9:43 CDT ID Screen Drug Resistant Organism : No MARK THAKKAR RN - 05/12/2015 9:33 CDT Immunizations Immunizations Current : Yes MARK THAKKAR RN - 05/12/2015 9:33 CDT Source: [employer] Document Id: [id number]![id number] documented in this encounter Miscellaneous Notes Miscellaneous - Conversion, Historical Provider Ser - 05/12/2015 12:13 PM CDT Coding Summary-Paper Based CODING DATE: 05/21/2015 FINAL [facility] STATUS: Left Against Medical Advice PAYOR: Medicaid ADMIT DX: 780.79 Other Malaise and Fatigue REASON FOR VISIT DX: 780.79 Other Malaise and Fatigue FINAL DX: PRINCIPAL: 285.9 Anemia, Unspecified SECONDARY: 250.00 Diabetes Mellitus without Mention of Complication, Type II or Unspecified Type, Not Stated as Uncontrolled 535.50 Unspecified Gastritis and Gastroduodenitis, without Mention of Hemorrhage 578.9 Hemorrhage of Gastrointestinal Tract, Unspecified V45.86 Bariatric Surgery Status 530.81 Esophageal Reflux 401.9 Unspecified Essential Hypertension PROCEDURES DOCTOR NAME DATE NOTE: The code number assigned matches the documented diagnosis and / or procedure in the patient's chart. However, the narrative phrase printed from the coding software may appear abbreviated, or result in slightly different terminology. Coded By: ROSSANA HEREDIA Date Saved: 05/21/2015 04:09 pm Source: [employer] Document Id: [id number] Osbaldo - Mark Thakkar R.N. - 05/12/2015 12:00 PM CDT Valuables/Belongings Valuables/Belongings Entered On: 05/12/2015 12:01 CDT Performed On: 05/12/2015 12:00 CDT by MARK THAKKAR RN Valuables/Belongings Belongings Sent Home With : ALL BELONGINGS SENT HOME WITH PATIENT Home Medication Disposition : None brought in with patient MARK THAKKAR RN - 05/12/2015 12:00 CDT [facility] Document Id: [id number] CDT![id number] Miscellaneous - Mark Thakkar R.N. - 05/12/2015 9:24 AM CDT Facility Charge Ticket 2.0 11.0 DX Facility Charge Ticket 2.0 11.0 DX Entered On: 05/12/2015 12:01 CDT Performed On: 05/12/2015 9:24 CDT by MARK THAKKAR RN Facility Charge Ticket 2.0 11.0 DX ED Other Charges : Standard ED Encounter TVL Level Translated RTF : Hyperglycemia, Weakness or fatigue TVL:5 TVL Level for Facility Charge Ticket : Level 5 Arrival Mode Calc : 1 Mode of Arrival ED : Private vehicle [facility] Mode of Arrival Interpreted : Standard [facility] Process Management : None Order Management RTF : Laboratory Glucose POC.,05/12/15 09:49,JESSIKA RICO PA Completed CBC (includes Auto Differential),05/12/15 10:10,JESSIKA RICO Completed Comprehensive Metabolic Panel,05/12/15 10:10,JESSIKA RICO Completed Amylase Level,05/12/15 10:10,JESSIKA RICO Completed Lipase Level,05/12/15 10:10,JESSIKA RICO Completed Urinalysis with Microscopic,05/12/15 10:10,JESSIKA RICO Completed Automated Diff-5 Part,05/12/15 10:34,JESSIKA RICO Completed TSH,05/12/15 10:50,JESSIKA RICO Completed Helicobacter pylori IgG Ab-[facility],05/12/15 10:48,JESSIKA RICO Ordered Urine Culture,05/12/15 11:44,JESSIKA RICO Ordered [facility] Order Management : Lab tests 30 Minutes Critical Care : No Nursing Notes RTF : Triage Forms ED Triage Assessment,05/12/15 09:33,MARK THAKKAR RN Nursing Notes ED Primary Assessment,05/12/15 09:48,MARK THAKKAR RN ED Pain Assessment,05/12/15 12:00,MARK THAKKAR RN [facility] Nursing Assessment : Triage and 3-5 nursing assessments [facility] Disposition : Discharge [facility] Total Points with Diagnosis Control : 13 [facility] Visit Level : 25649 Level 5 Treatments Prior to Arrival : None MARK THAKKAR RN - 05/12/2015 12:01 CDT Chief Complaint 11.0 Reason For Visit Category : Gastrointestinal TVL Calculation : 12 ED Chief Complaint Gastrointestinal 11.0 : Abdominal pain TVL for Facility Charge Ticket Dx : Level 4 MARK THAKKAR RN - 05/12/2015 12:01 CDT [facility] Document Id: [id number] documented in this encounter Plan of Treatment Not on filedocumented as of this encounter Procedures Procedure Name Priority Date/Time Associated Comments Diagnosis GLUCOSE POCT, B Routine 05/12/2015 11:57 Results for this AM CDT procedure are i n the results section. URINALYSIS WITH Routine 05/12/2015 11:18 Results for this MICROSCOPIC AM CDT procedure are i n the results section. BACTERIAL CULTURE, Routine 05/12/2015 11:18 Resul ts for this AEROBIC, URINE AM CDT procedure are in the results section. HELICOBACTER PYLORI Routine 05/12/2015 10:50 Resu lts for this IGG AB-[facility] AM CDT procedure are in the results section. THYROID-STIMULATING Routine 05/12/2015 10:50 Resu lts for this HORMONE-SENSITIVE AM CDT procedure are in (S-TSH) the results section. AUTOMATED Routine 05/12/2015 10:25 Results for this DIFFERENTIAL, B AM CDT procedure ar e in the results section. CBC WITH DIFFERENTIAL, Routine 05/12/2015 10:25 R esults for this B AM CDT procedure are i n the results section. LIPASE, S/P Routine 05/12/2015 10:25 Results for this AM CDT procedure are i n the results section. AMYLASE, TOT, S Routine 05/12/2015 10:25 Results for this AM CDT procedure are i n the results section. COMPREHENSIVE Routine 05/12/2015 10:25 Results fo r this METABOLIC PANEL, S/P AM CDT procedu re are in the results section. GLUCOSE POCT, B Routine 05/12/2015 9:31 AM Result s for this CDT procedure are i n the results section. documented in this encounter Results (ABNORMAL) Glucose, POCT (05/12/2015 11:57 AM CDT) athologist Signature Glucose, POCT, 140 (H) 70 - 139 POWERCHART B MGDL Comment: AnalyzedBy [id number] Ariane Tovar Performed at Med Surg [address] [facility] [address] [place], [place] ??[address] Specimen Anatomical Collection Method Collection Time Receive d Time (Source) Location / / Volume Laterality Blood 05/12/2015 11:57 05/12/2015 AM CDT 11:57 AM CDT Jessika Mehta P.A.-C. LAB POCT ORDERABLES-MANUAL Performing Organization Address City/State/ZIP Code Phon e Number POWERCHART (ABNORMAL) Urinalysis, Complete, Includes Microscopic (05/12/2015 11:18 AM CDT) [facility] gist Method Time Signature HXUr Color Yellow Colorless POWERCHART Clarity Clear Clear POWERCHART Glucose Negative Negative POWERCHART MGDL HXBILIRUBIN Small (A) Negative POWERCHART Ketones, QL(U) Trace (A) Negative POWERCHART MGDL Specific 1.015 POWERCHART [place], POCT, U pH, POCT, Urine 5.0 <5.0 POWERCHART Protein, Ur, 30 (A) Negative POWERCHART Dip MGDL Urobilinogen 0.2 0.2 MGDL POWERCHART HXNITRITE Negative Negative POWERCHART HXBLOOD Negative Negative POWERCHART Leukocyte Trace (A) Negative POWERCHART Esterase HXUR WBC. 4-10 (A) None Seen POWERCHART HPF HXUR RBC. Occ-2 None Seen POWERCHART HPF Casts, Hyaline Occasional None Seen POWERCHART (A) LPF Squamous Occ-3 (A) None Seen POWERCHART Epithelial HPF Crystals Present (A) None Seen POWERCHART Comment: Amorphous Specimen (Source) Anatomical Collection Method Collection Time Re ceived Time Location / / Volume Laterality Urine, First 05/12/2015 11:18 Voided AM CDT Jessika Mehta P.A.-C. LAB URINE ORDERABLES Performing Organization Address City/State/ZIP Code Phon e Number POWERCHART Bacterial Culture, Aerobic, Urine (05/12/2015 11:18 AM CDT) Patholo gist Method Time Signature Bacterial POWERCHART Culture, Aerobic, Urine HXPre Continuing POWERCHART incubation HXPre No growth at 1 POWERCHART day. HXFinal No growth at 2 POWERCHART days. Specimen (Source) Anatomical Collection Method Collection Time Re ceived Time Location / / Volume Laterality Urine, First 05/12/2015 11:18 Voided AM CDT Jessika Mehta P.A.-C. LAB MICROBIOLOGY - GENERAL O RDERABLES Performing Organization Address City/State/ZIP Code Phon e Number POWERCHART Thyroid-Stimulating Hormone-Sensitive (s-TSH) (05/12/2015 10:50 AM CDT) P athologist Signature TSH 0.89 0.27 - 4.20 POWERCHART (Thyrotropin) MIUL Specimen (Source) Anatomical Collection Method Collection Time Re ceived Time Location / / Volume Laterality Blood 05/12/2015 10:50 AM CDT Jessika Mehta P.A.-C. LAB BLOOD ADD-ON Performing Organization Address City/State/ZIP Code Phon e Number POWERCHART HELICOBACTER PYLORI IGG AB-[facility] (05/12/2015 10:50 AM CDT) athologist Signature HXH pylori Negative Negative POWERCHART IgG-[place]ado HXH pylori IgG 3.21 POWERCHART Idx-[place] Comment: Results with Index Values of <8.95 are n egative. Test Performed by: [address] [address] Therapist'S Assistant: Rene Gomez II, M.D., Ph.D. Specimen (Source) Anatomical Collection Method Collection Time Re ceived Time Location / / Volume Laterality Blood 05/12/2015 10:50 AM CDT Jessika Mehta P.A.-C. LAB HISTORICAL ORDERS Performing Organization Address City/[facility]/ZIP Code Phon e Number POWERCHART Automated Differential (05/12/2015 10:25 AM CDT) athologist Signature Absolute 4.64 1.70 - POWERCHART Neutrophils 7.00 109L Lymphocytes 1.63 0.90 - POWERCHART 2.90 X109L Monocytes 0.58 0.30 - POWERCHART 0.90 X109L Eosinophils 0.15 0.05 - POWERCHART 0.50 X109L Absolute 0.03 0.00 - POWERCHART Basophil 0.30 X109L Specimen Anatomical Collection Method Collection Time Receive d Time (Source) Location / / Volume Laterality Blood 05/12/2015 10:25 05/12/2015 AM CDT 10:25 AM CDT Jessika Mehta P.A.-C. LAB BLOOD ADD-ON Performing Organization Address City/[facility] Code Phon e Number POWERCHART (ABNORMAL) CBC with Differential (05/12/2015 10:25 AM CDT) [facility] gist Method Time Signature HXDifferential? Auto POWERCHART Leukocytes 7.0 3.5 - 10.5 POWERCHART X109L Erythrocytes 2.65 (L) 4.32 - POWERCHART 5.72 [id number] Hemoglobin 8.3 (L) 13.5 - POWERCHART 17.5 GDL Hematocrit 24.0 (L) 38.8 - POWERCHART 50.0 MCV 90.6 81.0 - POWERCHART 95.0 FL HX RDW 13.9 11.8 - POWERCHART 15.6 Platelet Count 161 150 - 450 POWERCHART X109L Specimen (Source) Anatomical Collection Method Collection Time Re ceived Time Location / / Volume Laterality Blood 05/12/2015 10:25 AM CDT Jessika Lindsay Janine Simons. LAB BLOOD ADD-ON Performing Organization Address City/State/ZIP Code Phon e Number POWERCHART Lipase (05/12/2015 10:25 AM CDT) P athologist Signature Lipase, S 39.7 10.0 - 73.0 POWERCHART UL Specimen (Source) Anatomical Collection Method Collection Time Re ceived Time Location / / Volume Laterality Blood 05/12/2015 10:25 AM CDT Jessika M Janine Simons. LAB BLOOD ADD-ON Performing Organization Address City/State/ZIP Code Phon e Number POWERCHART Amylase, Total (05/12/2015 10:25 AM CDT) P athologist Signature Amylase, Total, 29 25 - 115 UL POWERCHART S Specimen (Source) Anatomical Collection Method Collection Time Re ceived Time Location / / Volume Laterality Blood 05/12/2015 10:25 AM CDT Jessika Lindsay Janine Simons. LAB BLOOD ADD-ON Performing Organization Address City/[facility]/ZIP Code Phon e Number POWERCHART (ABNORMAL) CMP (Comprehensive Metabolic Panel) (05/12/2015 10:25 AM CDT) [facility] gist Method Time Signature Anion Gap 13 10 - 20 POWERCHART MMOLL Alkaline 67 45 - 115 POWERCHART Phosphatase, S UL Alanine 29 7 - 55 POWERCHART Amniotransferase, LD UNITL Aspartate 30 8 - 48 POWERCHART Aminotransferase UNITL (AST), S Bilirubin, Total, S 0.5 0.1 - 1.0 POWERCHART MGDL BUN (Blood Urea 36 (H) 7 - 18 POWERCHART Nitrogen), S MGDL Chloride, S 106 98 - 107 POWERCHART MMOLL CO2 Total 23.0 23.0 - POWERCHART 29.0 MMOLL Creatinine 1.05 0.60 - POWERCHART 1.30 MGDL Total Protein, S 5.7 (L) 6.3 - 7.9 POWERCHART GDL Glucose 163 (H) 70 - 139 POWERCHART MGDL Calcium, Total, S 9.2 8.6 - POWERCHART 10.0 MGDL Sodium, S 137.3 135.0 - POWERCHART 145.0 MMOLL Potassium, S 4.4 3.6 - 4.8 POWERCHART MMOLL Albumin, S 3.5 3.5 - 5.0 POWERCHART GDL HXeGFR (MDRD) >60 >=60 POWERCHART [id number] 2 eGFR Black/ >60 >=60 POWERCHART Tunisian [id number] 2 Specimen (Source) Anatomical Collection Method Collection Time Re ceived Time Location / / Volume Laterality Blood 05/12/2015 10:25 AM CDT Jessika Mehta P.A.-C. LAB BLOOD ADD-ON Performing Organization Address City/State/ZIP Code Phon e Number POWERCHART (ABNORMAL) Glucose, POCT (05/12/2015 9:31 AM CDT) athologist Signature Glucose, POCT, 193 (H) 70 - 139 POWERCHART B MGDL Comment: AnalyzedBy [id number] Ariane Tovar Performed at [facility] [address] [place] [address] [place], [place] ??[address] Specimen Anatomical Collection Method Collection Time Receive d Time (Source) Location / / Volume Laterality Blood 05/12/2015 9:31 AM 5 9:31 CDT AM CDT Jessika Mehta P.A.-C. LAB POCT ORDERABLES-MANUAL Performing Organization Address City/State/ZIP Code Phon e Number POWERCHART documented in this encounter Visit Diagnoses Not on filedocumented in this encounter Additional Health Concerns Assessment Noted Time PHQ-9 Depression Total Score: 18 02/14/2013 9:53 AM CD T documented as of this encounter
--- OUTSIDE RECORDS SUMMARY | 2022-07-29 10:52 | XMS_ITS | Encounter Summary ---
:1960 Author Organization [facility] Address [address] [place] [address] Care Team Providers Name Role Phone Unavailable Primary Care Provider Unavailable Encounter Details Date Type Department Care Team Description 05/15/2015 Hospital Encounter HX [facility] [place] Kevin Aguirre M.D. [address] [place] [phone] (Wo rk) Social History Tobacco Use Types Packs/Day Years Used Date Smoking Tobacco: Never Assessed Sex Assigned at Date Recorded Not on file documented as of this encounter Last Filed Vital Signs Vital Sign Reading Time Taken Comments Blood Pressure 164/54 05/15/2015 3:13 PM CDT Pulse 42 05/15/2015 3:13 PM CDT Temperature - - Respiratory Rate 16 05/15/2015 3:13 PM CDT Oxygen Saturation - - Inhaled Oxygen Concentration - - Weight 105 kg (232 lb 9.4 oz) 05/15/2015 3:13 PM CDT Height 185 cm (6' 0.84) 05/15/2015 3:13 PM CDT Body Mass Index 30.83 05/15/2015 3:13 PM CDT documented in this encounter H&P Notes Kevin Cobb M.D. - 05/15/2015 6:47 AM CDT Clinic Full Note CHIEF COMPLAINT/REASON FOR VISIT Pre-op EGD HISTORY OF PRESENT ILLNESS Ed presents today for a preop exam prior to undergoing an EGD. He has never had any problems with anesthesia. He reports that over the weekend he called the nurse line because his blood sugars have been running higher in the 130s. They recommended that he present to urgent care and urgent care was concerned and sent him to the emergency department instead. Apparently patient was quite pale. He had complained of the dark stools for about 1-1/2 weeks. Hemoglobin in the emergency department was 8.3. He was started on Prilosec and recommended to return the next day for recheck. He did this and hemoglobin was than 8.1. He has continued to take the Prilosec daily. He has not had any further dark stools. He denies any diarrhea. He has had some epigastric achiness which he thought was perhaps related toa pulled muscle. No nausea or vomiting. He was started on Celebrex in April for rib pain. He had been taking this with food but stopped taking it when he developed the dark stools. He recently had a gastric bypass surgery and has lost over 100 pounds. He is no longer on insulin. He did miss 2 months of his vitamin B12 injections but took it this month. MEDICATIONS allopurinol 300 mg oral tablet, 150 mg, 0.5 tab(s), kidney stones, PO, Daily amLODIPine 10 mg oral tablet, 5 mg, 0.5 tab(s), high blood pressure, PO, Daily Cialis 20 mg oral tablet, 20 mg, 1 tab(s), PO, Daily, PRN, 11 refills cyanocobalamin 1000 mcg/mL injectable solution, 1,000 mcg, 1 mL, vitamin B12 deficiency, Subcut., Monthly, 3 refills Flintstones Complete, 1 tab(s), Daily Metoprolol Tartrate 25 mg oral tablet, 12.5 mg, 0.5 tab(s), PO, 2xDay, 1 refills PriLOSEC 40 mg oral delayed release capsule, 40 mg, 1 cap(s), PO, Daily, 0 refills Senna Plus, 1 tab(s), PO, 2xDay simvastatin 40 mg oral tablet, 40 mg, 1 tab(s), high cholesterol, PO, Bedtime Tums 500, 2 tab(s), PO, 2xDay ALLERGIES Cipro Influenza Virus Vaccine (diarrhea) PAST [...] SCREENING (12/26/2009), Discectomy (02/19/1989). SOCIAL HISTORY Patient is . 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 No tobacco or alcohol. SOCIAL HISTORY Date Time: 05/15/2015 15:13 Tobacco: Smoking Status: Never smoker Exposure: Care provider denies smoking in home Alcohol: Use: No Recreational Drugs: Use: None Type: No Results Found FAMILY HISTORY Mother ( at 72 year(s)):Positive: Diabetes mellitus; Kidney disease; Myocardial infarction Father:Positive: Congestive heart failure; Hypertension SYSTEMS REVIEW Constitutional: Patient denies fever, chills, sweats, fatigue, appetite change, temperature intolerance or weight change. Eyes: Patient denies double vision, blurred vision, pain or redness. ENT: Patient denies nasal drainage, congestion, nosebleeds, sinus problems, sores on lips or mouth,sore throat or changes in voice. Respiratory: Patient denies cough, sputum production, shortness of breath, and wheezing. Skin: Patient denies any sores or rash. Cardiovascular System: Patient denies chest pain, history of heart murmur, DVT or PE. There is no edema or palpitations. GI: Patient feels like he sometimes has to swallow hard to get the food down. As per HPI. Patient denies nausea, vomiting, constipation, diarrhea, bloody stools or hemorrhoids. Genitourinary: Patient denies problems urinating or frequency. There are no penile sores discharge,testicular pain or mass. Musculoskeletal: Patient denies any joint pain, stiffness, or swelling. There is no significant back pain or neck pain. Neurologic: Occasional headache. Patient denies any history of head injury, blacking out, or confusion. No seizures, difficulty with vision, speech, walking, or weakness in arm or leg. Endocrine: Hx of diabetes. Patient denies changes in his hair, skin, excessive thirst, Urination. Mental Health: Patient denies anxiety, depression, insomnia, or abuse. Lymphatic/Hematologic: Patient denies masses, swelling, or unusual bruising or bleeding. VITAL SIGNS T: 36.2 ??C (Core) HR: 42 RR: 16 BP: 164 / 54 SpO2: 99% HT: 185 cm WT: 105.5 kg BMI: 30.83 PHYSICAL EXAMINATION General: Alert and oriented. No [...] Normoactive bowel sounds. Extremities: No pedal edema. Neurologic: Cranial nerves 2-12 grossly intact. No focal deficits. LAB RESULTS Hgb: 8.4 Low 05/15/15 Hct: 24.0 Low 05/12/15 WBC: 7.0 05/12/15 RBC: 2.65 Low 05/12/15 MCV: 90.6 05/12/15 RDW: 13.9 05/12/15 Platelet: 161 05/12/15 Neutro Absolute: 4.64 05/12/15 Lymph Absolute: 1.63 05/12/15 Marin Absolute: 0.58 05/12/15 Eos Absolute: 0.15 05/12/15 Baso Absolute: 0.03 05/12/15 Differential?: Auto 05/12/15 Sodium Lvl: 137.3 05/12/15 Potassium Lvl: 4.4 05/12/15 Chloride: 106 05/12/15 CO2: 23.0 05/12/15 Glucose Lvl: 163 High 05/12/15 Creatinine: 1.05 05/12/15 Calcium Lvl: 9.2 05/12/15 BUN: 36 High 05/12/15 EGFR (MDRD): >60 05/12/15 EGFR (MDRD): >60 05/12/15 AGAP: 13 05/12/15 DIAGNOSTIC RESULTS EKG shows bradycardia at 41bpm. Atrial flutter. Right bundle branch block. Unchanged from previous. IMPRESSION/REPORT/PLAN 1. Exam Preoperative NOS Patient has risk factors for heart disease and is chronically in atrial flutter. He has previously seen cardiology and was cleared for his gastric bypass surgery. He has no history of lung problems. CELESTE risk score is 8 which puts in the low risk category. Patient is not having any heart or lung symptoms. He is diabetic but is no longer on medications since his surgery. He was advised to take his metoprolol but to hold all other medications. He is deemed medically optimized for his EGD. Ordered: OV Est Pt Level 4 - 99536 - 25 min 2. Anemia NOS Hemoglobin was rechecked and has gone up a little to 8.4. I think this is reassuring. I encouraged patient to remember his vitamin B12 and we will also recommend starting an iron supplement. Ordered: OV Est Pt Level 4 - 76428 - 25 min 3. Ulcer Gastric Acute NOS Patient is most likely suffering an acute gastric ulcer due to use of Celebrex in the setting of gastric bypass surgery. He has appropriately stopped the Celebrex. We will continue with Prilosec. EGD will hopefully help determine if there is anything further going on. Ordered: OV Est Pt Level 4 - 79096 - 25 min 4. DM2 Patient brings in a record of his blood sugars which have been doing quite well. Generally they arearound 100 in the morning. He is no longer on insulin. Ordered: OV Est Pt Level 4 - 79528 - 25 min 5. Gastric Bypass S/P We will help arrange appointment to follow up with Dr. Hess, Dr. Saez and Hong, his dietitian. Patient's weight loss has been very successful. Ordered: OV Est Pt Level 4 - 54420 - 25 min 6. Hypertension HTN NOS Blood pressure was initially a little high today. Recheck was a little better. We will need to continue to monitor this. Ordered: OV Est Pt Level 4 - 10062 - 25 min Electronically Signed By: KEVIN KILGORE MD On: 05/16/2015 06:54 AM Source: [facility] POWERCHART Document Id: [id number] documented in this encounter Miscellaneous Notes Miscellaneous - Shirlene Abbott R.N. - 06/19/2015 11:05 AM CDT *General Message Document Contains Addenda Addendum by SORIN VARGAS RN on 20 June 2015 13:46:56 CDT Updated Magali. She will give message to patient and have him picker packer prescription. Reminded her of hemoglobin to be rechecked and she said he is aware but has been so busy with work that he hasn't had a chance yet but plans to. Addendum by SORIN VARGAS RN on 20 June 2015 11:43:40 CDT Script for omeprazole sent 06/12/15 for 30 day supply. Addendum by KEVIN KILGORE MD on 20 June 2015 11:18:39 CDT From: KEVIN KILGORE MD To: SORIN VARGAS RN; Sent: 06/20/2015 11:18:39 CDT Subject: RE: *General Message Patient was supposed to come for a hemoglobin recheck and never did. I do have concerns about his stomach. I think he should stay on the acid reflux medication. Let me know if he needs a new prescription. Kevin Segura Addendum by SORIN VARGAS RN on 20 June 2015 09:50:54 CDT From: SORIN VARGAS RN To: KEVIN KILGORE MD; Sent: 06/20/2015 09:50:54 CDT Subject: FW: *General Message Patient called and LM again today to verify we got his previous message from yesterday. He states hethinks his bleeding ulcer is dying down as things are looking more normal and the dull ache has somewhat relieved. He does have some concern about his skin around stomcah where he is fat is tender to the touch. Otherwise patient states everything is going good. His blood sugar was less than 100 this am. Also he states that he is now off of his acid reflux medication and does not think he needs any longer. From: SHIRLENE ABBOTT RN To: KEVIN KILGORE MD; Sent: 06/19/2015 11:05:13 CDT Subject: *General Message Pt left lengthy message about it is that time of the month and I miss took meds and does that have something to do with why I am bleeding again. working long hours he is currently in [place]. Blood sugars are good, reported many numbers from 85-95. Tailbone is sore because I don't have any meat on it. Did not leave any question or request that could be determined. No phone number. Source: [facility] POWERCHART Document Id: [id number] Electronically signed by Dayami, [facility] Investment Strategist [id number] at 02/02/2017 7:04 PM CDT Miscellaneous - Kevin Cobb M.D. - 05/15/2015 4:04 PM CDT Ambulatory Patient Summary [address] [id number] Visit Information Name: [facility]EM[facility] Number: [id number] Current Date: 05/15/2015 16:04:00 Physicians Attending Provider: KEVIN KILGORE MD Primary [...] Changes/Routing allopurinol (allopurinol 300 mg oral tablet) 0.5 Tablet(s), Oral, once a day kidney stones amLODIPine (amLODIPine 10 mg oral tablet) 0.5 Tablet(s), Oral, once a day high blood pressure calcium carbonate (Tums 500) 2 Tablet(s), Oral, two times a day cyanocobalamin (cyanocobalamin 1000 mcg/mL injectable solution) 1 Milliliter, Subcutaneous, once a month vitamin B12 deficiency docusate-senna (Senna Plus) 1 Tablet(s), Oral, two times a day metoprolol (Metoprolol Tartrate 25 mg oral tablet) 0.5 Tablet(s), Oral, two times a day multivitamin with minerals (Flintstones Complete) 1 Tablet(s), once a day omeprazole (PriLOSEC 40 mg oral delayed release capsule) 1 cap, Oral, once a day simvastatin (simvastatin 40 mg oral tablet) 1 Tablet(s), Oral, once a day (at bedtime) high cholesterol tadalafil (Cialis 20 mg oral tablet) 1 Tablet(s), Oral, once a day as needed for Erectile dysfunction Take as needed prior to anticipated sexual activity Stop Taking the Following Medications: Medication list as of 05-15-15 16:04 Attention: If you have any medications at [...] Electronically Signed By: KEVIN KILGORE MD Signed On:15-MAY-2015 16:03:46 Your Allergies & Intolerances Substance Reaction Symptoms [...] Your Upcoming Appointments Date Time Location Provider 05/16/2015 11:[address] [facility] Scope Room Jd Bruno MD Attention: Contact your local Clinic if further [...] if you dont have one. Go to [email or web address] and click on Create Your Account. Then, follow the directions to complete the online form. Youll be asked for your [facility] number which you can find at the top of this document. Your Goals/Additional instructions: Source: [facility] POWERCHART Document Id: [id number] Miscellaneous - Kevin Cobb M.D. - 05/15/2015 4:03 PM CDT Ambulatory Discharge Medication List [address] [id number] Visit Information Name: [facility] Number: [id number] Visit Date: 05/15/2015 16:03:58 Attending Provider: KEVIN KILGORE MD Primary Care [...] Changes/Routing allopurinol (allopurinol 300 mg oral tablet) 0.5 Tablet(s), Oral, once a day kidney stones amLODIPine (amLODIPine 10 mg oral tablet) 0.5 Tablet(s), Oral, once a day high blood pressure calcium carbonate (Tums 500) 2 Tablet(s), Oral, two times a day cyanocobalamin (cyanocobalamin 1000 mcg/mL injectable solution) 1 Milliliter, Subcutaneous, once a month vitamin B12 deficiency docusate-senna (Senna Plus) 1 Tablet(s), Oral, two times a day metoprolol (Metoprolol Tartrate 25 mg oral tablet) 0.5 Tablet(s), Oral, two times a day multivitamin with minerals (Flintstones Complete) 1 Tablet(s), once a day omeprazole (PriLOSEC 40 mg oral delayed release capsule) 1 cap, Oral, once a day simvastatin (simvastatin 40 mg oral tablet) 1 Tablet(s), Oral, once a day (at bedtime) high cholesterol tadalafil (Cialis 20 mg oral tablet) 1 Tablet(s), Oral, once a day as needed for Erectile dysfunction Take as needed prior to anticipated sexual activity Stop Taking the Following Medications: Medication list as of 05-15-15 16:03 Attention: If you have any medications at [...] Electronically Signed By: KEVIN KILGORE MD Signed On:15-MAY-2015 16:03:46 Additional Information: Source: [facility] POWERCHART Document Id: [id number] Miscellaneous - Marco Haji L.P.N. - 05/15/2015 3:26 PM CDT Obstructive Sleep Apnea Obstructive Sleep Apnea Entered On: 05/15/2015 15:29 CDT Performed On: 05/15/2015 15:26 CDT by MARCO HAJI LPN CELESTE Screening Known Obstructive Sleep Apnea : No - NOT diagnosed with CELESTE CELESTE Score : No qualifying data available. CELESTE Results : No qualifying data available. MARCO HAJI LPN - 05/15/2015 15:26 CDT CELESTE Assessment Do you have high blood pressure or have you been told to take medication for high blood pressure? : Yes Frequency of Snoring HTN : Never Frequency of Gasping, Choking, Snorting HTN : Never Total Number of Historical Features HTN : 0 Neck Circumference - CELESTE - HTN : 40/41 Total Sleep Apnea Clinical Score HTN Calc : 8 MARCO HAJI LPN - 05/15/2015 15:26 CDT Source: [facility] [place] Document Id: [id number] CDT!12 Miscellaneous - Marco Haji L.P.N. - 05/15/2015 3:13 PM CDT Adult Short Order Cook Intake/History Adult Short Order Cook Intake/History Entered On: 05/15/2015 15:26 CDT Performed On: 05/15/2015 15:13 CDT by MARCO HAJI LPN Intake Systolic Blood Pressure : 164 mmHg (>HHI) Diastolic Blood Pressure : 54 mmHg NIBP Mean : 91 mmHg MARCO HAJI LPN - 05/15/2015 15:26 CDT Chief Complaint : Pre-op EGD Temperature Core : 36.2 DegC(Converted to: 97.2 DegF) (LOW) Peripheral Pulse Rate : 42 /min (<LLOW) Respiratory Rate : 16 /min Heart Rhythm : Regular BP Location : Left upper extremity Blood Pressure Cuff Size : Large SpO2 : 99 % Oxygen Therapy : Room air Height : 185 cm(Converted to: 6 ft 1 inch(es), 73 inch(es)) Actual Weight : 105.5 kg(Converted to: 232 lb 9 oz) Weight Source : Standing scale Dosing Weight Clinic : 105.5 kg Clinic BSA : 2.33 Body Mass Index : 30.83 kg/m2 MARCO HAJI LPN - 05/15/2015 15:13 CDT General Info Information Given By : Patient Preferred Communication Mode : Verbal Languages : Serbian Is Patient Female and 13-50 no hysterectomy : No HAJI, HETDAVID Oakes [facility] - 05/15/2015 15:13 CDT Subjective Pain Symptoms : No HAJIMARCO [facility] - 05/15/2015 15:13 CDT Dependent Habits Tobacco Use/Currently Using : No Tobacco Use/Last 12 months : No Tobacco Use/Advised to Quit : No Exposure to Tobacco Smoke : Care provider denies smoking in home Smoking Status : Never smoker Alcohol Use : No PATELDAVID Oakes [facility] - 05/15/2015 15:13 CDT Caffeine Use Grid Caffeine Use : Current Type : Coffee, Soft drinks Frequency : Weekly Amount : soda- weekly; coffee- 1x/week HAJI KRISTINEDAVID Oakes [facility] - 05/15/2015 15:13 CDT Recreational Drug Use Grid Drug Use : None MARCO HAJI [facility] - 05/15/2015 15:13 CDT Source: [facility] POWERCHART Document Id: [id number] CDT!5 documented in this encounter Plan of Treatment Not on filedocumented as of this encounter Procedures Procedure Name Priority Date/Time Associated Diagnosis Comme nts HEMOGLOBIN, B Routine 05/15/2015 4:21 PM Results for this CDT procedure are i n the results section . documented in this encounter Results (ABNORMAL) Hemoglobin (05/15/2015 4:21 PM CDT) athologist Signature Hemoglobin 8.4 (L) 13.5 - 17.5 POWERCHART GDL Specimen (Source) Anatomical Collection Method Collection Time Re ceived Time Location / / Volume Laterality Blood 05/15/2015 4:21 PM CDT Kevin Copeland M.D. LAB BLOOD ADD-ON Performing Organization Address City/State/ZIP Code Phon e Number POWERCHART documented in this encounter Visit Diagnoses Not on filedocumented in this encounter Additional Health Concerns Assessment Noted Time PHQ-9 Depression Total Score: 18 02/14/2013 9:53 AM CD T documented as of this encounter
--- OUTSIDE RECORDS SUMMARY | 2022-07-29 10:52 | XMS_ITS | Encounter Summary ---
:[address] [facility] Address [address] [place] [address] Care Team Providers Name Role Phone Unavailable Primary Care Provider Unavailable Encounter Details Date Type Department Care Team Description 05/13/2015 Hospital Encounter HX [facility] Eugene Bunch III, M.D. [address] [place] [address] [phone] (Wo rk) Social History Tobacco Use Types Packs/Day Years Used Date Smoking Tobacco: Never Assessed Sex Assigned at Date Recorded Not on file documented as of this encounter Last Filed Vital Signs Vital Sign Reading Time Taken Comments Blood Pressure 125/64 05/13/2015 3:13 PM CDT Pulse 43 05/13/2015 3:13 PM CDT Temperature - - Respiratory Rate 20 05/13/2015 3:13 PM CDT Oxygen Saturation - - Inhaled Oxygen Concentration - - Weight - - Height - - Body Mass Index - - documented in this encounter Discharge Summaries Mark Thakkar RKevin. - 05/13/2015 3:19 PM CDT ED Discharge Instructions [address] [address] Name: NOEMÍ LUNA Date of : 1960 12:00 AM Visit Date: 05/13/2015 12:[address] [facility] Number: [id number] Address: [address] [facility] [phone] Primary Care Provider: KEVIN KILGORE MD IMPORTANT: [facility] in [place] would like to thank you for allowing us to assist you with your healthcare needs. The following includes patient education materials and informationregarding your injury/illness. Diagnosis: 1:Anemia NOS Follow-Up Instructions: With: Address: When: KEVIN KILGORE [address] [place] [address] [phone] Business (1) In 2days 05/15/2015 Your Upcoming Appointments: Date Time Location Provider 05/15/2015 15:00 [facility] Kevin Song MD Patient Education Materials: When You Have Gastrointestinal (GI) Bleeding Blood in vomit or stool can be a sign of gastrointestinal (GI) bleeding. GI bleeding can be scary, though the cause of the bleeding may not be serious. You should ALWAYS see a doctor if GI bleeding occurs. The GI Tract The GI tract is the path through which food travels in the body. Food passes from the mouth down the esophagus (the tube from the mouth to the stomach). Food begins to break down in the stomach. It then moves through the duodenum, the first part of the small intestine. Nutrients are absorbed as food travels through the small intestine. What is left passes into the colon (large intestine) as waste. The colon removes water from the waste. Waste continues from the colon to the rectum (where stool is stored). Waste then leaves the body through the anus. Causes of GI Bleeding GI bleeding can be caused by many different problems. Some of the more common causes include: ?? Hemorrhoids ?? Ulcer (sore on the lining of the GI tract) ?? Cuts or scrapes in the mouth or throat ?? Infection (bacteria or parasites) ?? Food allergies ?? Medications ?? Inflammation (swelling or irritation of the lining of the GI tract) ?? Polyps (growths of tissue) ?? Abnormal pouches in part of the GI tract ?? Tears in the anus ?? Nosebleed Diagnosing the Cause of Blood in Stool If blood is coming out in your stool, it may signal a lower GI tract problem. Bleeding from the GI tract can be bright red, or it may look dark and tarry. Occult blood cant be seen with the eye, but can be found in the stool on tests. To determine the cause, tests that may be ordered include: ?? Blood tests ?? Hemoccult test: checks a stool sample for blood ?? Stool culture: checks a stool sample for bacteria or parasites ?? X-ray, ultrasound, or CT scan: imaging tests that take pictures of the digestive tract ?? Colonoscopy or sigmoidoscopy: a test during which a flexible tube with a camera is inserted through the anus into the rectum to view the inside of your colon. This lets the doctor do a biopsy (take a tiny tissue sample). Diagnosing the Cause of Blood in Vomit Vomiting blood may signal an upper GI tract problem. To determine the cause, tests that may be ordered include: ?? Upper Endoscopy: a test during which a flexible tube with a camera is inserted through the mouth and throat to see inside the upper GI tract. This lets the doctor do a biopsy (take a tiny tissue sample). ?? X-ray, ultrasound, or CT scan: tests that take pictures of the digestive tract ?? Upper GI series: X-rays of the upper part of the GI tract taken from inside the body Call your health care provider right away if you have any of the following: Bleeding from the mouth or anus that cant be stopped Fever of 100.4?F (38.0?) or higher Bleeding accompanied by lightheadedness or dizziness Signs of dehydration (dry, sticky mouth; decreased urine output; very dark urine) Abdominal pain ?? [id number] [place] [address]. All rights reserved. This information is not [...] if you dont have one. Go to [email or web address] and click on Create Your Account. Then, follow the directions to complete the online form. Youll be asked for your [facility] number which you can find at the top of this document. ED Tests and Procedures: Order Status Hemoglobin Completed Discharge Prescriptions & Home Medications: Medication/Strength Dose Route Frequency Indications/Special Instructions/Comments/Notes omeprazole (PriLOSEC 40 mg oral delayed release capsule) 40 mg Oral once a day metoprolol (Metoprolol [...] arrange a ride home with a responsible constitution party. CARLYLE Contreras ED J , or responsible constitution party have received this information and my questions have been answered. I have discussed any challenges I see with this plan with the nurse or physician. Patient Signature or Responsible Alliance Party/Relationship Date Time Provider Signature Date Time IMPORTANT: [...] arrange a ride home with a responsible constitution party. CARLYLE Contreras ED J , or responsible constitution party have received this information and my questions have been answered. I have discussed any challenges I see with this plan with the nurse or physician. Patient Signature or Responsible Alliance Party/Relationship Date Time Provider Signature Date Time This document has images extracted. Please consider using [employer] for all your patient education needs. Source: plista Document Id: [id number] Mark Thakkar R.N. - 05/13/2015 3:19 PM CDT ED Depart Summary [facility] Emergency Department Clinical Discharge Summary PERSON INFORMATION Name NOEMÍ LUNA Age 54 Years 1960 12:00 AM Sex Male Language Samoan PCP KEVIN KILGORE MD Marital Status Visit Id Visit Reason Anemia; Taking blood sample; hemoglobin check Specialty Enc Type Emergency Med Service Emergency Medicine Referred by Track Group [facility] ED Discharge 05/13/2015 3:19 PM Tracking Id [id number] Checkout 05/13/2015 3:19 PM Checkin 05/13/2015 12:38 PM Acuity 5 -Non Urgent Dispo Type Left Against Medical Advice Arrival 05/13/2015 12:38 PM Reg Status Complete LOS 000 02:41 Address: [address] [id number] Comment: PROVIDER INFORMATION Provider Role Provider Contact Time MARK THAKKAR LINEN CONTROLLER Nurse 05/13/15 12:52 EUGENE BUNCH III, MD ED Provider 05/13/15 12:52 DIAGNOSIS 1:Anemia NOS Comment: PATIENT EDUCATION INFORMATION Instructions: When You Have Gastrointestinal (GI) Bleeding Follow up: With: Address: When: KEVIN KILGORE [address] [place] [phone] Business (0) In 2days 05/15/2015 Source: plista Document Id: [id number] documented in this encounter ED Notes Mark Thakkar R.N. - 05/13/2015 3:17 PM CDT ED Disposition Summary ED Disposition Summary Entered On: 05/13/2015 15:18 CDT Performed On: 05/13/2015 15:17 CDT by MARK THAKKAR RN ED Disposition Summary Accompanied By : Spouse Mode of Discharge : Ambulatory Transportation : Private vehicle Discharge From ED With : Home Med List Printed Discharge Instructions Given to Patient : Yes Comment : patient left AMA- pt. understands the risk of leaving and GI bleed complications, patient instructed to follow up with PCP on 05/15/15 MARK THAKKAR RN - 05/13/2015 15:17 CDT Source: plista Document Id: [id number] CDT!8 Mark Thakkar R.N. - 05/13/2015 2:48 PM CDT ED Disposition Summary ED Disposition Summary Entered On: 05/13/2015 14:48 CDT Performed On: 05/13/2015 14:48 CDT by MARK THAKKAR RN ED Disposition Summary Accompanied By : Spouse Mode of Discharge : Ambulatory Transportation : Private vehicle Discharge From ED With : Home Med List Printed Discharge Instructions Given to Patient : Yes MARK THAKKAR RN - 05/13/2015 14:48 CDT Source: plista Document Id: [id number] CDT!7 Mark Thakkar R.N. - 05/13/2015 2:48 PM CDT ED Pain Assessment ED Pain Assessment Entered On: 05/13/2015 14:48 CDT Performed On: 05/13/2015 14:48 CDT by MARK THAKKAR RN Pain Assessment Pain Symptoms : Yes MARK THAKKAR RN - 05/13/2015 14:48 CDT Source: [facility] POWERCHART Document Id: [id number] CDT!3 Eugene Bunch M.D. - 05/13/2015 2:09 PM CDT Anemia Patient: NOEMÍ LUNA Age: 54 years Sex: Male : 1960 Author: EUGENE BUNCH III, MD Attachments: None Associated Diagnosis: Anemia NOS Basic Information Additional information: Chief Complaint from Nursing Triage Note : Chief Complaint Description 05/13/2015 12:53 CDT Chief Complaint Description 54 yo male presents to the ED for a HGB check, pt. was evaluated in the ED yesterday for lethargy, int. dizziness, pts. hgb was 8.3 and was instructed to come back for re-check. Pt. left AMA 05/12/15. . History of Present Illness The patient presents with anemia. The onset was 7 days ago, gradual and epigastric pain with black stools. Lab test value Hgb: 8.3 gm/dl Lab test was performed by: emergency department and [facility]. Risk factors consist of diabetes mellitus, hypertension, history of anemia and ulcer. Prior episodes: none. Therapy today: prescription medications including omeprazole. Associated symptoms: black stools. Review of Systems Constitutional symptoms: Negative except as documented in HPI. Skin symptoms: Negative except as documented in HPI. Eye symptoms: Negative except as documented in HPI. ENMT symptoms: Negative except as documented in HPI. Respiratory symptoms: Negative except as documented in HPI. Cardiovascular symptoms: Negative except as documented in HPI. Gastrointestinal symptoms: Abdominal pain. Health Status Allergies: Allergic Reactions (Selected) Severity [...] for 90 day(s), 90 tab(s), 1 Refill(s) PriLOSEC 40 mg oral delayed release capsule: 40 mg, 1 cap(s), PO, Daily, 30 cap(s), 0 Refill(s) cyanocobalamin 1000 mcg/mL injectable solution: 1,000 [...] 1 tab(s), PO, Bedtime, high cholesterol, 90 tab(s). Past Medical/ Family/ Social History Medical history: Active Fracture Closed Radial head (813.05): Onset on 09/29/2012 at 52 years. Comments: 09/30/2012 MEDICAL REIMBURSEMENT SPECIALIST 15:06 STEVE COUCH CNP left Genital warts (078.19) Comments: 09/30/2013 MEDICAL REIMBURSEMENT SPECIALIST 11:47 ANOOP MESSER LPN onset unknown Tinea pedis* (110.4) Comments: 09/30/2013 MEDICAL REIMBURSEMENT SPECIALIST 11:47 ANOOP MESSER MASTER TECHNICIAN onset unknown Tinea cruris. (110.3) Comments: 09/30/2013 MEDICAL REIMBURSEMENT SPECIALIST 11:47 ANOOP MESSER MASTER TECHNICIAN onset unknown. Surgical history: Gastric bypass (SNOMED CT 9416729890) on 11/19/2014 at 54 Years. Cystoscopy (SNOMED CT 59311048) on 12/26/2009 at 49 Years. Comments: 02/20/2010 08:36 - STEVE ANDREA CNP [place] [facility] / normal PSA, TOTAL SCREENING (CPT4 G0103) on 12/26/2009 at 49 Years. Comments: 02/20/2010 08:38 - STEVE ANDREA CNP Done at [place] / Result: 1.55 Discectomy (SNOMED CT 3152829) on 02/19/1989 at 28 Years. Comments: 12/28/2009 09:38 - STEVE ANDREA PHARMACOGNOSIST lumbar L4-L5. Family history: Diabetes mellitus Mother () Hypertension Father Myocardial infarction Mother () Kidney disease Mother () Congestive heart failure Father . Social history: Alcohol use: Denies, Tobacco use: Denies, Drug use: Denies, Occupation: Employed, Family/social situation: . Problem list: All Problems (Selected) Erectile dysfunction* / 607.84 / Confirmed BPH without urinary obstruction / 600.00 / Confirmed Urge Incontinence / 788.31 / Confirmed Eczema / 692.9 / Confirmed Obesity NOS / 278.00 / Confirmed Ulcer of skin NOS / 707.9 / Confirmed Genital warts / 078.19 / Confirmed Tinea pedis* / 110.4 / Confirmed Tinea cruris. / 110.3 / Confirmed Flutter Atrial NOS / 427.32 / Confirmed Flutter Atrial NOS / 427.32 / Confirmed Hyperlipidemia / 272.4 / Confirmed Hypertension essential, NOS / 401.9 / Confirmed DM II (or NOS), uncontrolled / 250.02 / Confirmed Optic disc cupping / 377.14 / Confirmed Intertrigo. / 695.89 / Confirmed Fracture Closed Radial head / 813.05 / Confirmed Morbid Obesity (BMI > 40) (V85.4) / 278.01 / Confirmed Unspecified Adjustment Reaction / 309.9 / Confirmed. Physical Examination Vital Signs: Vital Signs 05/13/2015 12:53 CDT Temperature Core 36.3 DegC LOW Peripheral Pulse Rate 44 /min <LLOW Respiratory Rate 20 /min SpO2 100 % Systolic Blood Pressure 117 mmHg Diastolic Blood Pressure 62 mmHg Mean Arterial Pressure 80 mmHg . General: Alert and no acute distress. Skin: Warm, dry and pale. Head: Normocephalic and atraumatic. Neck: Supple, trachea midline and no tenderness. Eye: Pupils are equal, round and reactive to light, extraocular movements are intact, normal conjunctiva and vision unchanged. Ears, nose, mouth and throat: Tympanic membranes clear, oral mucosa moist and no pharyngeal erythemaor exudate. Cardiovascular: Regular rate and rhythm, No murmur and Normal peripheral perfusion. Respiratory: Lungs are clear to auscultation, respirations are non-labored and breath sounds are equal. Chest wall: No tenderness and No deformity. Gastrointestinal: Tenderness: Moderate, epigastric, Guarding: Minimal, Rebound: Negative, Bowel sounds: Normal, Organomegaly: Negative and Trauma: Negative. Neurological: Alert and oriented to person, place, time, and situation and No focal neurological deficit observed. Lymphatics: No lymphadenopathy. Psychiatric: Cooperative, appropriate mood & affect and normal judgment. Medical Decision Making Differential Diagnosis:Anemia, gastrointestinal bleed. OrdersLaunch Orders Pharmacy: Protonix (Order Processing): 40 mg, PO, Once. Results review:Lab results : Lab View 05/13/2015 13:08 CDT Hgb 8.1 g/dL LOW 05/12/2015 11:57 CDT Glucose POC 140 mg/dL HI 05/12/2015 11:18 CDT UA Color Yellow UA [...] Epi Cells Occ-3 /HPF UR Crystals Present Culture Urine Review (In Progress) 05/12/2015 10:50 CDT TSH 0.89 mIU/L 05/12/2015 10:25 CDT Hgb 8.3 g/dL LOW Hct 24.0 % LOW WBC 7.0 x10(9)/L RBC 2.65 x10(12)/L LOW MCV 90.6 fL RDW 13.9 % Platelet 161 x10(9)/L Neutro Absolute 4.64 10(9)/L Lymph Absolute 1.63 x10(9)/L [place] Absolute 0.58 x10(9)/L Eos Absolute 0.15 x10(9)/L [...] 9:31 CDT Glucose POC 193 mg/dL HI , Interpretation Abnormal results anemia. Impression and Plan Diagnosis Anemia NOS (Discharge, Medical) Plan Condition: Unchanged. Disposition: Discharged: to home. Patient was given the following educational materials: When You Have Gastrointestinal (GI) Bleeding. Follow up with: KEVIN KILGORE In 2 days 05/15/2015. Counseled: Patient, Family, Discussed results and plan with patient in detail and they expressed understanding and agreement.. Orders: Launch Orders Patient Care: Discharge ED Patient (Order Processing): 05/13/2015 15:06 CDT, Once. Notes: Discussed findings of 8.1 hgb in the setting of blood in stools and midepigastric pain. Likelihood of ulcer, GI bleed. Advised pt I would like to contact a GI surgeon to discuss this but pt refuses. He tells me he has to work today and tomorrow. Declines further care and understands he will need to sign out AMA. We discussed the risks of low hgb and GI bleed including syncope and . He agrees to restart PPI as he was given a prescription yesterday but his favorite pharmacist is not working so he did not fill the script. He was given a PO dose of Protonix today. We set him up for an appt with Dr. Song on Thursday. Electronically Signed By: EUGENE BUNCH III, MD On: 05/14/2015 07:48 AM Modified by and Electronically Signed by: EUGENE BUNCH III, MD On: 05/13/2015 03:06 PM [facility]: [facility] POWERCHART Document Id: [id number]} Mark Thakkar R.N. - 05/13/2015 1:01 PM CDT ED Primary Assessment Document Has Been Updated ED Primary Assessment Entered On: 05/13/2015 13:03 CDT Performed On: 05/13/2015 13:01 CDT by MARK THAKKAR RN Reason For Visit (As Of: 05/13/2015 13:03:03 CDT) Problems(Active) BPH without urinary obstruction (ICD-9-CM [...] System: PowerChart ; Last Updated: 07/24/2011 10:45 MEDICAL REIMBURSEMENT SPECIALIST ; Life Cycle Date: 12/05/2010 ; Life [...] Comments: 09/30/2013 11:46 - ANOOP QUEVEDO Abby MASTER TECHNICIAN onset unknown Flutter Atrial NOS (ICD-9-CM :427.32 ) Name of Problem: Flutter Atrial NOS ; Recorder: KEVIN KILGORE MD; Confirmation: Confirmed ; Classification: Medical ; Code: 427.32 ; Contributor System: PowerChart ; Last Updated: 07/29/2014 7:02 MEDICAL REIMBURSEMENT SPECIALIST ; Life Cycle Status: Active ; Responsible [...] System: PowerChart ; Last Updated: 09/30/2012 15:06 MEDICAL REIMBURSEMENT SPECIALIST ; Life Cycle Date: 09/30/2012 ; Life [...] - ANOOP QUEVEDO Abby ZURITA onset unknown Hyperlipidemia (ICD-9-CM :272.4 ) Name [...] Code: 695.89 ; Last Updated: 07/14/2012 14:36 MEDICAL REIMBURSEMENT SPECIALIST ; Life Cycle Status: Active ; Responsible [...] System: PowerChart ; Last Updated: 09/05/2010 9:56 MEDICAL REIMBURSEMENT SPECIALIST ; Life Cycle Date: 09/05/2010 ; Life Cycle Status: Active ; Responsible Provider: STEVE ANDREA CNP; Vocabulary: ICD-9-CM ; Comments: 09/30/2013 11:ANOOP ISAAC R MASTER TECHNICIAN onset unknown Optic disc cupping (ICD-9-CM :377.14 [...] Medical ; Code: 110.3 ; Contributor System: Associated Content ; Last Updated: 06/01/2013 9:06 CDT ; Life Cycle Date: 06/01/2013 ; Life Cycle Status: Active ; Responsible Provider: MARILUZ FRAGA MD; Vocabulary: ICD-9-CM ; Comments: 09/30/2013 11:ANOOP ISAAC RLPN onset unknown Tinea pedis* (ICD-9-CM :110.4 ) Name of Problem: Tinea pedis* ; Recorder: MARILUZ FRAGA MD; Confirmation: Confirmed ; Classification: Medical ; Code: 110.4 ; Contributor System: [employer]Chart ; Last Updated: 02/02/2014 8:24 CDT ; Life Cycle Date: 06/01/2013 ; Life Cycle Status: Active ; Responsible Provider: MARILUZ FRAGA MD; Vocabulary: ICD-9-CM ; Comments: 09/30/2013 11:ANOOP SIAAC R MASTER TECHNICIAN onset unknown Ulcer of skin NOS (ICD-9-CM :707.9 ) Name of Problem: Ulcer of skin NOS ; Recorder: HALEIGH SCHULTZ CNP; Confirmation: Confirmed ; Classification: UPDATE NEEDED ; Code: 707.9 ; Contributor System: PowerChart ; Last Updated: 09/18/2010 8:25 MEDICAL REIMBURSEMENT SPECIALIST ; Life Cycle Date: 09/18/2010 ; Life Cycle Status: Active ; Responsible Provider: HALEIGH SCHULTZ CNP; Vocabulary: ICD-9-CM ; Comments: 09/30/2013 11:47 - ANOOP QUEVEDO LPN onset unknown Unspecified Adjustment Reaction (ICD-9-CM :309.9 ) Name of Problem: Unspecified Adjustment Reaction ; Onset Date: 05/05/2013 ; Confirmation: Confirmed ; Classification: Medical ; Code: 309.9 ; Contributor System: [facility]_HX_PR_UPLOAD ; Last Updated: 12/03/2013 18:36 CDT ; Life Cycle Status: Active ; Vocabulary: ICD-9-CM ; Comments: - Unspecified adjustment reaction Urge Incontinence (ICD-9-CM :788.31 ) Name of Problem: Urge Incontinence ; Recorder: STEVE ANDREA; Confirmation: Confirmed ; Classification: Medical ; Code: 788.31 ; Contributor System: Associated Content ; Last Updated: 02/20/2010 8:39 CDT ; Life Cycle Date: 02/20/2010 ; Life Cycle Status: Active ; Responsible Provider: STEVE ANDREA CNP; Vocabulary: ICD-9-CM ; Comments: 09/30/2013 11:46 - ANOOP QUEVEDO LPN onset unknown Diagnoses(Active) Taking blood sample Date: 05/13/2015 ; Diagnosis Type: Reason For Visit ; Confirmation: Complaint of; Clinical Dx: Taking blood sample ; Classification: Medical ; Clinical Service: Emergency medicine ; Code: PNED ; Probability: 0 ; Diagnosis Code: [id number] Triage Chief Complaint Description : see triage note Information Given By : Patient Accompanied By : Spouse Mode of Arrival ED : Private vehicle Track : Medical Languages : Samoan Patient Informed of Triage Location : Emergency department GCS Assessed : Yes Treatments Prior to Arrival : None Is Patient Female and 13-50 no hysterectomy : No MARK THAKKAR RN - 05/13/2015 13:01 CDT Lois Coma Eye Opening Response [place] : Spontaneously Best Verbal Response [place] : Oriented Best Motor Response [place] : Obeys simple commands [place] Coma Score : 15 MARK THAKKAR RN - 05/13/2015 13:01 CDT Pain Assessment Pain Symptoms : Yes MARK THAKKAR RN - 05/13/2015 13:01 CDT ED Physician Notification Time ED Physician Notification Time : 05/13/2015 12:58 CDT MARK THAKKAR RN - 05/13/2015 13:01 CDT ERIN ERIN Level 1 : No ERIN Level 2 : No ERIN Level 3 : One MARK THAKKAR RN - 05/13/2015 13:01 CDT DCP GENERIC CODE Tracking Acuity : 5 -Non Urgent Tracking Group : [facility] ED MARK THAKKAR Jim RN - 05/13/2015 13:01 CDT Allergy (As Of: 05/13/2015 13:03:03 CDT) Allergies (Active) Cipro Estimated Onset Date: Unspecified ; Created By: STEVE ANDREA CNP; Reaction Status: Active ;Category: Drug ; Substance: Cipro ; Type: Allergy ; Updated By: STEVE ANDREA CNP; Reviewed Date: 05/13/2015 13:01 CDT Influenza Virus Vaccine Estimated Onset Date: Unspecified ; Reactions: diarrhea ; Created By: STEVE ANDREA CNP; Reaction Status: Active ; Category: Drug ; Substance: Influenza Virus Vaccine ; Type: Intolerance ; Updated By: STEVE ANDREA CNP; Reviewed Date: 05/13/2015 13:01 CDT ID Screen Drug Resistant Organism : No KRISTIANELAINECIARAN Fernandez RN - 05/13/2015 13:01 CDT Immunizations Immunizations Current : Yes MARK THAKKAR RN - 05/13/2015 13:01 CDT Respiratory Airway : Patent Respirations : Unlabored Respiratory Pattern : Regular MARK THAKKAR RN - 05/13/2015 13:01 CDT Cardiovascular Heart Rhythm : Regular Skin Color : Normal for ethnicity Skin Description : Dry Skin Temperature : Warm AKIRADANIELLE MurraySoumya Fernandez RN - 05/13/2015 13:01 CDT Neurological Last Well Time Known : Not applicable Level of Consciousness : Alert Orientation : Oriented x 3 Characteristics of Speech : Appropriate for age Neuro Patient Stated Symptoms : Weakness Gait : Steady Swallowing Difficulty/Aspiration Risk : None MARK THAKKAR RN - 05/13/2015 13:01 CDT ED Psychosocial Affect/Behavior : Calm, Cooperative, Appropriate Domestic Abuse Concerns : None Behavioral Health Screen/Safety Assmt : No MARK THAKKAR RN - 05/13/2015 13:01 CDT Gastrointestinal Nutrition ED : Adequate GI Detailed Assessment : Yes MARK THAKKAR RN - 05/13/2015 13:01 CDT GI Detailed GI Patient Stated Symptoms : Abdominal pain, Stools, black/bloody Stool Color : Black MARK THAKKAR RN - 05/13/2015 13:01 CDT /OB Assessment Patient Stated Symptoms : None MARK THAKKAR RN - 05/13/2015 13:01 CDT Integumentary Integumentary Patient Stated Symptoms : None MARK THAKKAR RN - 05/13/2015 13:01 CDT Musculoskeletal Fall Prevention Education Provided : Yes MARK THAKKAR RN - 05/13/2015 13:01 CDT Social Habits Tobacco Use/Currently Using : No Exposure to Tobacco Smoke : Care provider denies smoking in home Smoking Status : Never smoker MARK THAKKAR RN - 05/13/2015 13:01 CDT Alcohol Use Grid Alcohol Use : No MARK THAKKAR RN - 05/13/2015 13:01 CDT Recreational Drug Use Grid Drug Use : None MARK THAKKAR RN - 05/13/2015 13:01 CDT Source: [facility] [employer] Document Id: [id number] CDT!75 Mark Thakkar R.N. - 05/13/2015 12:53 PM CDT ED Triage Assessment Document Has Been Updated ED Triage Assessment Entered On: 05/13/2015 12:58 CDT Performed On: 05/13/2015 12:53 CDT by MARK THAKKAR RN Reason For Visit (As Of: 05/13/2015 12:58:26 CDT) Problems(Active) BPH without urinary obstruction (ICD-9-CM :600.00 ) Name of Problem: BPH without urinary obstruction; Recorder: STEVE ANDREA CNP; Confirmation: Confirmed ; Classification: Medical ; Code: 600.00 ; Contributor System: Associated Content ; Last Updated: 02/15/2010 10:00 CDT ; Life Cycle Date: 02/15/2010 ; Life Cycle Status: Active ; Responsible Provider: STEVE ANDREA CNP; Vocabulary: ICD-9-CM ; Comments: 09/30/2013 11:46 - ANOOP QUEVEDO R MASTER TECHNICIAN onset unknown DM II (or NOS), uncontrolled (ICD-9-CM :250.02 ) Name of Problem: DM II (or NOS), uncontrolled ; Onset Date: 12/28/2009 ; Recorder: STEVE ANDREA CNP; Confirmation: Confirmed ; Classification: Medical ; Code: 250.02 ; Contributor System: PowerChart ; Last Updated: 07/24/2011 10:45 MEDICAL REIMBURSEMENT SPECIALIST ; Life Cycle Date: 12/05/2010 ; Life [...] Vocabulary: ICD-9-CM ; Comments: 09/30/2013 11:47 - QUEVEDOANOOP R MASTER TECHNICIAN onset unknown Erectile dysfunction* (ICD-9-CM :607.84 ) Name of Problem: Erectile dysfunction* ; Recorder: STEVE ANDREA CNP; Confirmation: Confirmed ; Classification: Medical ; Code: 607.84 ; Contributor System: PowerChart ; Last Updated: 12/28/2009 9:40 CDT ; Life Cycle Date: 12/28/2009 ; Life Cycle Status: Active ; Responsible Provider: STEVE ANDREA CNP; Vocabulary: ICD-9-CM ; Comments: 09/30/2013 11:46 - QUEVEDONAOOP R MASTER TECHNICIAN onset unknown Flutter Atrial NOS (ICD-9-CM :427.32 ) Name of Problem: Flutter Atrial NOS ; Recorder: KEVIN KILGORE MD; Confirmation: Confirmed ; Classification: Medical ; Code: 427.32 ; Contributor System: PowerChart ; Last Updated: 07/29/2014 7:02 MEDICAL REIMBURSEMENT SPECIALIST ; Life Cycle Status: Active ; Responsible Provider: KVEIN KILGORE MD; Vocabulary: ICD-9-CM Flutter Atrial NOS (ICD-9-CM :427.32 ) Name of Problem: Flutter Atrial NOS ; Recorder: JOSIE CASTANEDA LPN, RT; Confirmation: Confirmed ; Classification: Medical ; Code: 427.32 ; Contributor System: CodyChart ; Last Updated: 01/04/2015 10:57 CDT ; Life Cycle Status: Active ; Vocabulary: ICD-9-CM Fracture Closed Radial head (ICD-9-CM :813.05 ) Name of Problem: Fracture Closed Radial head ; OnsetDate: 09/29/2012 ; Recorder: STEVE ANDREA CNP; Confirmation: Confirmed ; Classification: Medical ; Code: 813.05 ; Contributor System: CodyChart ; Last Updated: 09/30/2012 15:06 MEDICAL REIMBURSEMENT SPECIALIST ; Life Cycle Date: 09/30/2012 ; Life Cycle Status: Active ; Responsible Provider: STEVE ANDREA CNP; Vocabulary: ICD-9-CM ; Comments: 09/30/2012 15:06 - STEVE ANDREA CNP left Genital warts (ICD-9-CM :078.19 ) Name of Problem: Genital warts ; Recorder: MARILUZ FRAGA MD; Confirmation: Confirmed ; Classification: UPDATE NEEDED ; Code: 078.19 ; Contributor System: CodyChart; Last Updated: 02/11/2013 16:19 CDT ; Life [...] Code: 695.89 ; Last Updated: 07/14/2012 14:36 MEDICAL REIMBURSEMENT SPECIALIST ; Life Cycle Status: Active ; Responsible [...] System: PowerChart ; Last Updated: 09/05/2010 9:56 MEDICAL REIMBURSEMENT SPECIALIST ; Life Cycle Date: 09/05/2010 ; Life [...] Medical ; Code: 110.3 ; Contributor System: Associated Content ; Last Updated: 06/01/2013 9:06 CDT ; Life Cycle Date: 06/01/2013 ; Life Cycle Status: Active ; Responsible Provider: MARILUZ FRAGA MD; Vocabulary: ICD-9-CM ; Comments: 09/30/2013 11:ANOOP ISAAC RLPN onset unknown Tinea pedis* (ICD-9-CM :110.4 ) Name of Problem: Tinea pedis* ; Recorder: MARILUZ FRAGA MD; Confirmation: Confirmed ; Classification: Medical ; Code: 110.4 ; Contributor System: Associated Content ; Last Updated: 02/02/2014 8:24 CDT ; Life Cycle Date: 06/01/2013 ; Life Cycle Status: Active ; Responsible Provider: MARILUZ FRAGA MD; Vocabulary: ICD-9-CM ; Comments: 09/30/2013 11:47 ANOOP GONZALEZ R MASTER TECHNICIAN onset unknown Ulcer of skin NOS (ICD-9-CM :707.9 ) Name of Problem: Ulcer of skin NOS ; Recorder: HALEIGH SCHULTZ CNP; Confirmation: Confirmed ; Classification: UPDATE NEEDED ; Code: 707.9 ; Contributor System: CodyChart ; Last Updated: 09/18/2010 8:25 MEDICAL REIMBURSEMENT SPECIALIST ; Life Cycle Date: 09/18/2010 ; Life Cycle Status: Active ; Responsible Provider: HALEIGH SCHULTZ CNP; Vocabulary: ICD-9-CM ; Comments: 09/30/2013 11:ANOOP ISAAC MASTER TECHNICIAN onset unknown Unspecified Adjustment Reaction (ICD-9-CM :309.9 ) Name of Problem: Unspecified Adjustment Reaction ; Onset Date: 05/05/2013 ; Confirmation: Confirmed ; Classification: Medical ; Code: 309.9 ; Contributor System: [facility]_UPLOAD ; Last Updated: 12/03/2013 18:36 CDT ; Life Cycle Status: Active ; Vocabulary: ICD-9-CM ; Comments: - Unspecified adjustment reaction Urge Incontinence (ICD-9-CM :788.31 ) Name of Problem: Urge Incontinence ; Recorder: STEVE ANDREA; Confirmation: Confirmed ; Classification: Medical ; Code: 788.31 ; Contributor System: PowerChart ; Last Updated: 02/20/2010 8:39 CDT ; Life Cycle Date: 02/20/2010 ; Life Cycle Status: Active ; Responsible Provider: STEVE ANDREA CNP; Vocabulary: ICD-9-CM ; Comments: 09/30/2013 11:46 - ANOOP QUEVEDO MASTER TECHNICIAN onset unknown Diagnoses(Active) Taking blood sample Date: 05/13/2015 ; Diagnosis Type: Reason For Visit ; Confirmation: Complaint of; Clinical Dx: Taking blood sample ; Classification: Medical ; Clinical Service: Emergency medicine ; Code: PNED ; Probability: 0 ; Diagnosis Code: [id number] Triage Chief Complaint Description : 54 yo male presents to the ED for a HGB check, pt. was evaluated in the ED yesterday for lethargy, int. dizziness, pts. hgb was 8.3 and was instructed to come back for re-check. Pt. left AMA 05/12/15. Information Given By : Patient Accompanied By : Spouse Mode of Arrival ED : Private vehicle Track : Medical Languages : Samoan Patient Informed of Triage Location : Emergency department Vital Signs Assessed : Yes GCS Assessed : Yes Treatments Prior to Arrival : None Is Patient Female and 13-50 no hysterectomy : No MARK THAKKAR RN - 05/13/2015 12:53 CDT Vital Signs Temperature Core : 36.3 DegC(Converted to: 97.3 DegF) (LOW) Peripheral Pulse Rate : 44 /min (<LLOW) Respiratory Rate : 20 /min Systolic Blood Pressure : 117 mmHg Diastolic Blood Pressure : 62 mmHg NIBP Mean : 80 mmHg BP Location : Left upper extremity SpO2 : 100 % Oxygen Therapy : Room air MARK THAKKAR RN - 05/13/2015 12:53 CDT [place] Coma Eye Opening Response [place] : Spontaneously Best Verbal Response Lois : Oriented Best Motor Response [place] : Obeys simple commands Lois Coma Score : 15 MARK THAKKAR RN - 05/13/2015 12:53 CDT Pain Assessment Pain Symptoms : Yes MARK THAKKAR RN - 05/13/2015 12:53 CDT Pain Scale Pain Scale Verbal 0-10 : Open MARK THAKKAR RN - 05/13/2015 12:53 CDT Pain Pain Assessment Grid Pain 1 Location : Epigastric Laterality : Bilateral Intensity : 3 (Comment: ache- its either there or it isn't [MARK THAKKAR RN - 05/13/2015 12:53 CDT] ) Quality : Aching MARK THAKKAR RN - 05/13/2015 12:53 CDT ED Physician Notification Time ED Physician Notification Time : 05/13/2015 12:58 CDT MARK THAKKAR RN - 05/13/2015 12:53 CDT ERIN ERIN Level 1 : No ERIN Level 2 : No ERIN Level 3 : One MARK THAKKAR RN - 05/13/2015 12:53 CDT DCP GENERIC CODE Tracking Acuity : 5 -Non Urgent Tracking Group : [facility] ED MARK THAKKAR RN - 05/13/2015 12:53 CDT Allergy (As Of: 05/13/2015 12:58:26 CDT) Allergies (Active) Cipro Estimated Onset Date: Unspecified ; Created By: STEVE ANDREA CNP; Reaction Status: Active ;Category: Drug ; Substance: Cipro ; Type: Allergy ; Updated By: STEVE ANDREA CNP; Reviewed Date: 05/13/2015 12:58 CDT Influenza Virus Vaccine Estimated Onset Date: Unspecified ; Reactions: diarrhea ; Created By: STEVE ANDREA CNP; Reaction Status: Active ; Category: Drug ; Substance: Influenza Virus Vaccine ; Type: Intolerance ; Updated By: STEVE ANDREA CNP; Reviewed Date: 05/13/2015 12:58 CDT ID Screen Drug Resistant Organism : No MARK THAKKAR RN - 05/13/2015 12:53 CDT Immunizations Immunizations Current : Yes MARK THAKKAR RN - 05/13/2015 12:53 CDT Source: [facility] [employer] Document Id: [id number] CDT!52 documented in this encounter Miscellaneous Notes Miscellaneous - Mark Thakkar R.N. - 05/14/2015 8:21 AM CDT Communication Note Communication Note Entered On: 05/14/2015 8:30 CDT Performed On: 05/14/2015 8:21 CDT by MARK THAKKAR RN Communication Subject of Note : Family/patient concern or action Assessment Communication Note : Patient called and wanted to update ED staff that he had 2 BM this morning the first was dark brown/black and the second BM was more brown. Pt. continues to feel tired but denies dizziness or feeling light headed. Pt. will be at his appointment tomorrow with MD Kathia but watned to update staff. Intervention : Patient/Family reassured Response : Discussed with patient that medical advice of following up sooner is still our recommendation patient verbalized understanding but that he would rather have care at [facility]-. Discussed with patient that he needs to take recommended RX and follow up sooner in ED if sx worsen. Patient verbalized understanding. MARK THAKKAR RN - 05/14/2015 8:21 CDT Source: [facility] POWERCHART Document Id: [id number] CDT!6 Miscellaneous - Conversion, Historical Provider Ser - 05/13/2015 3:19 PM CDT Coding Summary-Paper Based CODING DATE: 05/22/2015 FINAL [facility] STATUS: Left Against Medical Advice PAYOR: Medicaid ADMIT DX: 285.9 Anemia, Unspecified REASON FOR VISIT DX: 285.9 Anemia, Unspecified FINAL DX: PRINCIPAL: 285.9 Anemia, Unspecified SECONDARY: 578.1 Blood in Stool 789.06 Abdominal Pain, Epigastric 250.00 Diabetes Mellitus without Mention of Complication, Type II or Unspecified Type, Not Stated as Uncontrolled 401.9 Unspecified Essential Hypertension V45.86 Bariatric Surgery Status PROCEDURES DOCTOR NAME DATE NOTE: The code number assigned matches the documented diagnosis and / or procedure in the patient's chart. However, the narrative phrase printed from the coding software may appear abbreviated, or result in slightly different terminology. Coded By: ROSSANA HEREDIA Date Saved: 05/22/2015 08:26 am Source: [employer]ista Document Id: [id number] Miscellaneous - Mark Thakkar R.N. - 05/13/2015 3:13 PM CDT Discharge Vital Signs Form Discharge Vital Signs Form Entered On: 05/13/2015 15:17 CDT Performed On: 05/13/2015 15:13 CDT by MARK THAKKAR RN Vital Signs Temperature Core : 36.2 DegC(Converted to: 97.2 DegF) (LOW) Peripheral Pulse Rate : 43 /min (<LLOW) Respiratory Rate : 20 /min Systolic Blood Pressure : 125 mmHg Diastolic Blood Pressure : 64 mmHg NIBP Mean : 84 mmHg BP Location : Left upper extremity SpO2 : 100 % Oxygen Therapy : Room air MARK THAKKAR RN - 05/13/2015 15:17 CDT Source: [employer]ista Document Id: [id number] CDT!11 Miscellaneous - Mark Thakkar R.N. - 05/13/2015 2:48 PM CDT Valuables/Belongings Valuables/Belongings Entered On: 05/13/2015 14:49 CDT Performed On: 05/13/2015 14:48 CDT by MARK THAKKAR RN Valuables/Belongings Belongings Sent Home With : all belongings sent home with patient Home Medication Disposition : None brought in with patient MARK THAKKAR RN - 05/13/2015 14:48 CDT [facility] Document Id: [id number] CDT!4 Miscellaneous - Mark Thakkar R.N. - 05/13/2015 12:38 PM CDT Facility Charge Ticket 2.0 11.0 DX Facility Charge Ticket 2.0 11.0 DX Entered On: 05/13/2015 14:49 CDT Performed On: 05/13/2015 12:38 CDT by MARK THAKKAR RN Facility Charge Ticket 2.0 11.0 DX ED Other Charges : Standard ED Encounter TVL Level Translated RTF : Taking blood sample, Anemia TVL:4 TVL Level for Facility Charge Ticket : Level 4 Arrival Mode Calc : 1 Mode of Arrival ED : Private vehicle [facility] Mode of Arrival Interpreted : Standard [facility] Process Management : None Order Management RTF : Laboratory Hemoglobin,05/13/15 13:00,EUGENE BUNCH III, MD Completed [facility] Order Management : Lab tests 30 Minutes Critical Care : No Nursing Notes RTF : Triage Forms ED Triage Assessment,05/13/15 12:53,MARK THAKKAR RN Nursing Notes ED Primary Assessment,05/13/15 13:01,MARK THAKKAR RN ED Pain Assessment,05/13/15 14:48,MARK THAKKAR RN [facility] Nursing Assessment : Triage and 1-2 nursing assessments [facility] Disposition : Discharge [facility] Total Points with Diagnosis Control : 8 [facility] Visit Level : 09826 Level 4 Treatments Prior to Arrival : None MARK THAKKAR RN - 05/13/2015 14:49 CDT Chief Complaint 11.0 Reason For Visit Category : Gastrointestinal TVL Calculation : 12 ED Chief Complaint Gastrointestinal 11.0 : Abdominal pain TVL for Facility Charge Ticket Dx : Level 4 MARK THAKKAR RN - 05/13/2015 14:49 CDT [facility] [employer] Document Id: [id number] CDT!23 documented in this encounter Plan of Treatment Not on filedocumented as of this encounter Procedures Procedure Name Priority Date/Time Associated Diagnosis Comme nts HEMOGLOBIN, B Routine 05/13/2015 1:08 PM Results for this CDT procedure are i n the results section . documented in this encounter Results (ABNORMAL) Hemoglobin (05/13/2015 1:08 PM CDT) P athologist Signature Hemoglobin 8.1 (L) 13.5 - 17.5 POWERCHART GDL Specimen (Source) Anatomical Collection Method Collection Time Re ceived Time Location / / Volume Laterality Blood 05/13/2015 1:08 PM CDT Eugene Bunch III, M.D. LAB BLOOD ADD-ON Performing Organization Address City/State/ZIP Code Phon e Number POWERCHART documented in this encounter Visit Diagnoses Not on filedocumented in this encounter Additional Health Concerns Assessment Noted Time PHQ-9 Depression Total Score: 18 02/14/2013 9:53 AM CD T documented as of this encounter
--- OUTSIDE RECORDS SUMMARY | 2022-07-29 10:52 | XMS_ITS | Encounter Summary ---
:1960 Author Organization [facility] Address [address] [place] [address] Care Team Providers Name Role Phone Unavailable Primary Care Provider Unavailable Encounter Details Date Type Department Care Team Description 04/14/2015 Hospital Encounter HX [facility] ED Alexandra Barker M.D. [address] [place] [address] (Wo rk) Social History Tobacco Use Types Packs/Day Years Used Date Smoking Tobacco: Never Assessed Sex Assigned at Date Recorded Not on file documented as of this encounter Last Filed Vital Signs Vital Sign Reading Time Taken Comments Blood Pressure 139/70 04/14/2015 4:06 PM CDT Pulse 55 04/14/2015 4:06 PM CDT Temperature - - Respiratory Rate 18 04/14/2015 4:06 PM CDT Oxygen Saturation - - Inhaled Oxygen Concentration - - Weight - - Height - - Body Mass Index - - documented in this encounter Discharge Summaries Ana Reeves, RPiliN. - 04/14/2015 5:42 PM CDT ED Discharge Instructions [address] [address] Name: NOEMÍ LUNA Date of : 1960 12:00 AM Visit Date: 04/14/2015 3:44 PM [facility] Number: [id number] Address: [address] [facility] [id number] Primary Care Provider: KEVIN KILGORE MD IMPORTANT: [facility] in [place] would like to thank you for allowing us to assist you with your healthcare needs. The following includes patient education materials and informationregarding your injury/illness. Diagnosis: Pain Chest Wall (CWP) Follow-Up Instructions: With: Address: When: KEVIN KILGORE [address] [place] [phone] Business (1) Within As Needed Comments: Your Upcoming Appointments: Date Time Location Provider No Appointments found Patient Education Materials: Chest Strain A strain of the chest is due to stretching and tearing of the muscle fibers between the ribs. This may occur as a result of severe coughing, strenuous lifting or twisting injuries of the upper back. This usually causes increased pain with movement or deep breathing. This may take a few days to a few weeks to heal. Home Care: ?? Rest. Avoid heavy lifting or strenuous exertion. Avoid any activity that causes pain. ?? If you have a severe cough, use a cough syrup such as Robitussin DM (containing dextromethorphan)unless another cough medicine was prescribed. ?? You may use acetaminophen (Tylenol) or ibuprofen (Motrin, Advil) to control pain, unless another medicine was prescribed. [ NOTE: If you have chronic liver or kidney disease or ever had a stomach ulcer or GI bleeding, talk with your doctor before using these medicines.] Follow Up with your doctor as directed. Get Prompt Medical Attention if any of the following occur: ?? A change in the type of pain: if it feels different, becomes more severe, lasts longer, or beginsto spread into your shoulder, arm, neck, jaw or back ?? Shortness of breath or increased pain with breathing ?? Cough with dark colored sputum (phlegm) or blood ?? Weakness, dizziness, or fainting ?? Fever of 100.4?F (38?C) or higher, or as directed by your healthcare provider ?? [id number] [facility], [address] [place] [address], [place] [address]. All rights reserved. This information is not [...] if you dont have one. Go to [email or web address] and click on Create Your Account. Then, follow the directions to complete the online form. Youll be asked for your [facility] number which you can find at the top of this document. ED Tests and Procedures: Order Status XR Ribs Left 2 views above Diaphragm Completed Discharge Prescriptions & Home Medications: Medication/Strength Dose Route Frequency Indications/Special Instructions/Comments/Notes celecoxib (CeleBREX 200 mg oral capsule) 200 [...] arrange a ride home with a responsible green party. CARLYLE Contreras ED J , or responsible green party have received this information and my questions have been answered. I have discussed any challenges I see with this plan with the nurse or physician. Patient Signature or Responsible Democrat/Relationship Date Time Provider Signature Date Time IMPORTANT: [...] arrange a ride home with a responsible green party. I, LUNA, ED J , or responsible green party have received this information and my questions have been answered. I have discussed any challenges I see with this plan with the nurse or physician. Patient Signature or Responsible Democrat/Relationship Date Time Provider Signature Date Time jyoti This document has images extracted. Please consider using [employer] for all your patient education needs. Source: [facility] [employer] Document Id: [id number] Ana Reeves RKevin. - 04/14/2015 5:42 PM CDT ED Depart Summary [facility] Emergency Department Clinical Discharge Summary PERSON INFORMATION Name NOEMÍ LUNA Age 54 Years 1960 12:00 AM Sex Male Language Danish PCP KEVIN KILGORE MD Marital Status Visit Id Visit Reason Rib/trunk pain-swelling; back and rib pain Specialty Enc Type Emergency Med Service Emergency Medicine Referred by Track Group [facility] ED Discharge 04/14/2015 5:28 PM Tracking Id [id number] Checkout 04/14/2015 5:28 PM Checkin 04/14/2015 3:44 PM Acuity 3 -Urgent Dispo Type * Discharged to Home or Self Care Arrival 04/14/2015 3:44 PM Reg Status Complete LOS 000 01:44 Address: [address] [place] [phone] Comment: PROVIDER INFORMATION Provider Role Provider Contact Time ANA REEVES VISITING NURSE Nurse 04/14/15 16:09 CIERRA BARKER MD ED Provider 04/14/15 16:12 DIAGNOSIS Pain Chest Wall (CWP) Comment: PATIENT EDUCATION INFORMATION Instructions: CHEST WALL STRAIN Follow up: With: Address: When: KEVIN NELSON[address] [address] Business (1) Within As Needed Comments: Source: D[employer] Document Id: [id number] documented in this encounter ED Notes Ana Reeves R.N. - 04/14/2015 5:34 PM CDT ED Disposition Summary ED Disposition Summary Entered On: 04/14/2015 17:34 CDT Performed On: 04/14/2015 17:34 CDT by ANA REEVES RN ED Disposition Summary Accompanied By : Alone Mode of Discharge : Ambulatory Transportation : Private vehicle Printed Discharge Instructions Given to Patient : Yes Patient Status at Discharge from ED : Unchanged ANA REEVES RN - 04/14/2015 17:34 CDT Source: [facility] Document Id: [id number] CDT!7 Ana Reeves R.N. - 04/14/2015 5:34 PM CDT ED Pain Assessment ED Pain Assessment Entered On: 04/14/2015 17:34 CDT Performed On: 04/14/2015 17:34 CDT by ANA REEVES RN Pain Assessment Pain Symptoms : Yes ANA REEVES RN - 04/14/2015 17:34 CDT Source: [facility] Document Id: [id number] CDT!3 Cierra Barker M.D. - 04/14/2015 4:27 PM CDT Rib/trunk pain-swelling Patient: LUNANOEMÍ Padilla J Age: 54 years Sex: Male : 1960 Author: CIERRA BARKER MD Attachments: None Associated Diagnosis: Pain Chest Wall (CWP) Basic Information Time seen: Date & time 04/14/2015 16:28:00. History source: Patient. Arrival mode: Private vehicle, walking. History limitation: None. Additional information: Chief Complaint from Nursing Triage Note : Chief Complaint Description 04/14/2015 16:06 CDT Chief Complaint Description has had pain in ribs on both side that started thursday night after a massage (Modified) . History of Present Illness The patient presents with rib-trunk pain. The onset was 5 days ago. The course/duration of symptoms is fluctuating in intensity. Location: left chest. Type of injury: During massage on 04/10, maria eugenia used elbow to apply pressure and this was quite painful on his left lateral rib. He is concerned this might have injured his rib.. The character of symptoms is pain. The degree of pain is moderate. 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 Very physical work, 8-18 hours/day. Risk factors consist of age and Physical nature of his job. Associated symptoms: denies shortness of breath, denies nausea and denies vomiting. Review of Systems Constitutional symptoms: No fever. Skin symptoms: No rash. Respiratory symptoms: No cough or no wheezing. Cardiovascular symptoms: No palpitations, no diaphoresis or no peripheral edema. Gastrointestinal symptoms: Negative except as documented in HPI. Neurologic symptoms: Negative except as documented in HPI. Allergy/immunologic symptoms: Negative except as documented in HPI. Additional review of systems information: All other [...] tab(s), PO, Bedtime, high cholesterol, 90 tab(s). Immunizations: Include Immunizations Immunizations reviewed. . Past Medical/ Family/ Social History Medical history: Active Fracture Closed Radial head (813.05): Onset on 09/29/2012 at 52 years. Comments: 09/30/2012 APPLICATION ASSISTANT 15:06 STEVE COUCH CNP left Genital warts (078.19) Comments: 09/30/2013 APPLICATION ASSISTANT 11:47 APPLICATION ASSISTANT ANOOP GONZALEZ TRANSITIONAL CARE LIAISON onset unknown Tinea pedis* (110.4) Comments: 09/30/2013 APPLICATION ASSISTANT 11:47 ANOOP MESSER TRANSITIONAL CARE LIAISON onset unknown Tinea cruris. (110.3) Comments: 09/30/2013 APPLICATION ASSISTANT 11:47 ANOOP MESSER TRANSITIONAL CARE LIAISON onset unknown. Surgical history: Cystoscopy ([id number]) on 12/26/2009 at 49 Years. Comments: 02/20/2010 08:36 - STEVE ANDREA CNP [place] [facility] / normal PSA, TOTAL SCREENING (G0103) on 12/26/2009 at 49 Years. Comments: 02/20/2010 08:38 - STEVE ANDREA CNP Done at [place] / Result: 1.55 Discectomy ([id number]) on 02/19/1989 at 28 Years. Comments: 12/28/2009 09:38 STEVE WELSH CNP lumbar L4-L5. Family history: Diabetes mellitus Mother () Hypertension Father Myocardial infarction Mother () Kidney disease Mother () Congestive heart failure Father . Social history: Tobacco use: Denies, Occupation: Employed, Family/social situation: . Problem list: All Problems Erectile dysfunction* / 607.84 / Confirmed BPH [...] Unspecified Adjustment Reaction / 309.9 / Confirmed Inactive: Kidney stone / 592.0 Inactive: Pyelonephritis / 590.80 Canceled: Renal stone / 592.0 Canceled: Diabetes mellitus type II / 250.00. Physical Examination Vital Signs: Vital Signs 04/14/2015 16:06 CDT Temperature Core 36.4 DegC LOW Peripheral Pulse Rate 55 /min LOW Respiratory Rate 18 /min SpO2 98 % Systolic Blood Pressure 139 mmHg Diastolic Blood Pressure 70 mmHg . General: Alert and no acute distress. Skin: Warm, dry and no rash. Head: Normocephalic. Eye: Extraocular movements are intact and normal conjunctiva. Ears, nose, mouth and throat: Tympanic membranes clear, oral mucosa moist, no pharyngeal erythema orexudate and Numerous dental crowns noted. Cardiovascular: Regular rate and rhythm and No murmur. Respiratory: Respirations are non-labored and breath sounds are equal. Chest wall: and On exam: Left, lateral, mild, tenderness, reproduces complaint, no crepitus. Back: Normal alignment. Musculoskeletal: Left upper biceps has a ropey area where he had previous injury, suggestive of somescar tissue formation. Neurological: Normal motor observed and normal speech observed. Lymphatics: No lymphadenopathy. Psychiatric: Cooperative. Medical Decision Making Trauma team: no trauma criteria met Differential Diagnosis:Chest wall pain, chest wall injury. Documents reviewed:Emergency department nurses' notes, prior records. OrdersLaunch Orders Radiology: Ribs Left 2 views above Diaphragm XR (Order Processing): 04/14/2015 16:28 CDT, left rib pain for 5 days, does a lot of lifting/pulling, Stat, Patient Bed, Once, 04/14/2015 16:28 CDT. Chest X-Ray:Indications: left rib pain for 5 days, does a lot of lifting/pulling ORIGINAL REPORT - 14-Apr-2015 17:07:00 EXAM: Left Ribs-Above Diaphragm, 2 vw: IMPRESSION: No definite rib fractures are seen on the left. . Impression and Plan Diagnosis Pain Chest Wall (CWP) (Discharge, Emergency medicine, Medical) Plan Condition: Stable. Disposition: Discharged: to home. Prescriptions: Trial of Celebrex 200 mg daily. Take with food.. Patient was given the following educational materials: CHEST WALL STRAIN. Follow up with: KEVIN Qiu As Needed. Counseled: Patient, Regarding diagnosis, Regarding diagnostic results, Regarding treatment plan. Electronically Signed By: CIERRA BARKER MD On: 04/14/2015 07:51 PM Modified by and Electronically Signed by: CIERRA BARKER MD On: 04/14/2015 05:28 PM This document has images extracted. Source: [facility] POWERCHART Document Id: {[id number]} Ana Reeves RPiliN. - 04/14/2015 4:06 PM CDT ED Triage Assessment Document Has Been Updated ED Triage Assessment Entered On: 04/14/2015 16:09 CDT Performed On: 04/14/2015 16:06 CDT by ANA REEVES RN Reason For Visit (As Of: 04/14/2015 16:15:23 CDT) Problems(Active) BPH without urinary obstruction (ICD-9-CM :600.00 ) Name of Problem: BPH without urinary obstruction; Recorder: STEVE ANDREA CNP; Confirmation: Confirmed ; Classification: Medical ; Code: 600.00 ; Contributor System: PowerChart ; Last Updated: 02/15/2010 10:00 CDT ; Life Cycle Date: 02/15/2010 ; Life Cycle Status: Active ; Responsible Provider: STEVE ANDREA CNP; Vocabulary: ICD-9-CM ; Comments: 09/30/2013 11:46 - QUEVEDOIKE ROMANICA R TRANSITIONAL CARE LIAISON onset unknown DM II (or NOS), uncontrolled (ICD-9-CM :250.02 ) Name of Problem: DM II (or NOS), uncontrolled ; Onset Date: 12/28/2009 ; Recorder: STEVE ANDREA CNP; Confirmation: Confirmed ; Classification: Medical ; Code: 250.02 ; Contributor System: TempronicsChart ; Last Updated: 07/24/2011 10:45 APPLICATION ASSISTANT ; Life Cycle Date: 12/05/2010 ; Life [...] ; Comments: 09/30/2013 11:47 - ANOOP QUEVEDO R TRANSITIONAL CARE LIAISON onset unknown Erectile dysfunction* (ICD-9-CM :607.84 ) Name of Problem: Erectile dysfunction* ; Recorder: STEVE ANDREA CNP; Confirmation: Confirmed ; Classification: Medical ; Code: 607.84 ; Contributor System: TempronicsChart ; Last Updated: 12/28/2009 9:40 CDT ; Life Cycle Date: 12/28/2009 ; Life Cycle Status: Active ; Responsible Provider: STEVE ANDREA CNP; Vocabulary: ICD-9-CM ; Comments: 09/30/2013 11:46 - IKE QUEVEDOICA R TRANSITIONAL CARE LIAISON onset unknown Flutter Atrial NOS (ICD-9-CM :427.32 ) Name of Problem: Flutter Atrial NOS ; Recorder: KEVIN KILGORE MD; Confirmation: Confirmed ; Classification: Medical ; Code: 427.32 ; Contributor System: PowerChart ; Last Updated: 07/29/2014 7:02 APPLICATION ASSISTANT ; Life Cycle Status: Active ; Responsible [...] System: PowerChart ; Last Updated: 09/30/2012 15:06 APPLICATION ASSISTANT ; Life Cycle Date: 09/30/2012 ; Life [...] Code: 695.89 ; Last Updated: 07/14/2012 14:36 APPLICATION ASSISTANT ; Life Cycle Status: Active ; Responsible [...] System: PowerChart ; Last Updated: 09/05/2010 9:56 APPLICATION ASSISTANT ; Life Cycle Date: 09/05/2010 ; Life [...] Vocabulary: ICD-9-CM ; Comments: 09/30/2013 11:ANOOP ISAAC TRANSITIONAL CARE LIAISON onset unknown Ulcer of skin NOS (ICD-9-CM :707.9 ) Name of Problem: Ulcer of skin NOS ; Recorder: HALEIGH SCHULTZ CNP; Confirmation: Confirmed ; Classification: UPDATE NEEDED ; Code: 707.9 ; Contributor System: PowerChart ; Last Updated: 09/18/2010 8:25 APPLICATION ASSISTANT ; Life Cycle Date: 09/18/2010 ; Life Cycle Status: Active ; Responsible Provider: HALEIGH SCHULTZ CNP; Vocabulary: ICD-9-CM ; Comments: 09/30/2013 11:ANOOP ISAAC TRANSITIONAL CARE LIAISON onset unknown Unspecified Adjustment Reaction (ICD-9-CM :309.9 ) Name of Problem: Unspecified Adjustment Reaction ; Onset Date: 05/05/2013 ; Confirmation: Confirmed ; Classification: Medical ; Code: 309.9 ; Contributor System: [facility]_UPLOAD ; Last Updated: 12/03/2013 18:36 CDT ; Life Cycle Status: Active ; Vocabulary: ICD-9-CM ; Comments: - Unspecified adjustment reaction Urge Incontinence (ICD-9-CM :788.31 ) Name of Problem: Urge Incontinence ; Recorder: STEVE ANDREA; Confirmation: Confirmed ; Classification: Medical ; Code: 788.31 ; Contributor System: [employer]el ; Last Updated: 02/20/2010 8:39 CDT ; Life Cycle Date: 02/20/2010 ; Life Cycle Status: Active ; Responsible Provider: STEVE ANDREA CNP; Vocabulary: ICD-9-CM ; Comments: 09/30/2013 11:46 - ANOOP QUEVEDO TRANSITIONAL CARE LIAISON onset unknown Diagnoses(Active) Rib/trunk pain-swelling Date: 04/14/2015 ; Diagnosis Type: Reason For Visit ; Confirmation: Complaint of ; Clinical Dx: Rib/trunk pain-swelling ; Classification: Medical ; Clinical Service: Emergency medicine ; Code: PNED ; Probability: 0 ; Diagnosis Code: [id number] Triage Chief Complaint Description : has had pain in ribs on both side that started thursday night after a massage ANA REEVES RN - 04/14/2015 16:15 CDT Mode of Arrival ED : Private vehicle Track : Medical Languages : Danish Patient Informed of Triage Location : Emergency department Vital Signs Assessed : Yes Treatments Prior to Arrival : None Is Patient Female and 13-50 no hysterectomy : No ANA REEVES RN - 04/14/2015 16:06 CDT Vital Signs Temperature Core : 36.4 DegC(Converted to: 97.5 DegF) (LOW) Peripheral Pulse Rate : 55 /min (LOW) Respiratory Rate : 18 /min Systolic Blood Pressure : 139 mmHg Diastolic Blood Pressure : 70 mmHg NIBP Mean : 93 mmHg BP Location : Left upper extremity SpO2 : 98 % Oxygen Saturation Monitoring Frequency : Intermittent Oxygen Therapy : Room air ANA REEVES RN - 04/14/2015 16:06 CDT Pain Assessment Pain Symptoms : Yes ANA REEVES RN - 04/14/2015 16:06 CDT Pain Scale Pain Scale Verbal 0-10 : Open ANA REEVES RN - 04/14/2015 16:06 CDT Pain Pain Assessment Grid Pain 1 Location : Rib ANA REEVES RN - 04/14/2015 16:06 CDT ED Physician Notification Time ED Physician Notification Time : 04/14/2015 16:09 CDT ANA REEVES RN - 04/14/2015 16:06 CDT ERIN DCP GENERIC CODE Tracking Group : [facility] ED Tracking Acuity : 3 -Urgent ANA REEVES RN - 04/14/2015 16:06 CDT Allergy (As Of: 04/14/2015 16:15:23 CDT) Allergies (Active) Cipro Estimated Onset Date: Unspecified ; Created By: STEVE ANDREA CNP; Reaction Status: Active ;Category: Drug ; Substance: Cipro ; Type: Allergy ; Updated By: STEVE ANDREA CNP; Reviewed Date: 04/14/2015 16:09 CDT Influenza Virus Vaccine Estimated Onset Date: Unspecified ; Reactions: diarrhea ; Created By: STEVE ANDREA CNP; Reaction Status: Active ; Category: Drug ; Substance: Influenza Virus Vaccine ; Type: Intolerance ; Updated By: STEVE ANDREA CNP; Reviewed Date: 04/14/2015 16:09 CDT ID Screen Drug Resistant Organism : No ANA REEVES RN - 04/14/2015 16:15 CDT Source: [facility] Document Id: [id number] CDT!5 documented in this encounter Miscellaneous Notes Miscellaneous - Ana Reeves, R.N. - 04/14/2015 5:34 PM CDT Valuables/Belongings Valuables/Belongings Entered On: 04/14/2015 17:34 CDT Performed On: 04/14/2015 17:34 CDT by ANA REEVES RN Valuables/Belongings Home Medication Disposition : None brought in with patient ANA REEVES RN - 04/14/2015 17:34 CDT Source: [facility] [employer] Document Id: [id number] CDT!3 Miscellaneous - Conversion, Historical Provider Ser - 04/14/2015 5:28 PM CDT Coding Summary-Paper Based CODING DATE: 04/16/2015 FINAL [place] [facility] STATUS: * Discharged to Home or Self Care PAYOR: Medicaid ADMIT DX: 786.52 Painful Respiration REASON FOR VISIT DX: 786.52 Painful Respiration FINAL DX: PRINCIPAL: 786.52 Painful Respiration SECONDARY: PROCEDURES DOCTOR NAME DATE NOTE: The code number assigned matches the documented diagnosis and / or procedure in the patient's chart. However, the narrative phrase printed from the coding software may appear abbreviated, or result in slightly different terminology. Coded By: ROSSANA HEREDIA Date Saved: 04/16/2015 09:43 am Source: [facility] Document Id: [id number] Miscellaneous - Ana Reeves, R.N. - 04/14/2015 3:44 PM CDT Facility Charge Ticket 2.0 11.0 DX Facility Charge Ticket 2.0 11.0 DX Entered On: 04/14/2015 17:34 CDT Performed On: 04/14/2015 15:44 CDT by ANA REEVES RN Facility Charge Ticket 2.0 11.0 DX ED Other Charges : Standard ED Encounter TVL Level Translated RTF : Rib/trunk pain-swelling TVL:3 TVL Level for Facility Charge Ticket : Level 3 Arrival Mode Calc : 1 Mode of Arrival ED : Private vehicle [facility] Mode of Arrival Interpreted : Standard [facility] Process Management : None Order Management RTF : Xray Ribs Left 2 views above Diaphragm XR,04/14/15 16:28,CIERRA BARKER MD Completed [facility] Order Management : Xray - plain films 30 Minutes Critical Care : No Nursing Notes RTF : Triage Forms ED Triage Assessment,04/14/15 16:06,ANA REEVES RN Nursing Notes ED Pain Assessment,04/14/15 17:34,ANA REEVES RN [facility] Nursing Assessment : Triage and 1-2 nursing assessments [facility] Disposition : Discharge [facility] Total Points with Diagnosis Control : 6 [facility] Visit Level : 94860 Level 3 Treatments Prior to Arrival : None ANA REEVES RN - 04/14/2015 17:34 CDT Source: [facility] [employer] Document Id: [id number] CDT!18 documented in this encounter Plan of Treatment Not on filedocumented as of this encounter Visit Diagnoses Not on filedocumented in this encounter Additional Health Concerns Assessment Noted Time PHQ-9 Depression Total Score: 18 02/14/2013 9:53 AM CD T documented as of this encounter
--- OUTSIDE RECORDS SUMMARY | 2022-07-29 10:52 | XMS_ITS | Encounter Summary ---
:1960 Author Organization [facility] Address [address] [place] [address] Care Team Providers Name Role Phone Unavailable Primary Care Provider Unavailable Encounter Details Date Type Department Care Team Description 03/24/2015 Hospital Encounter HX [facility] Cintia Cobb M.D. [address] [place] [phone] (Wo rk) Social History Tobacco Use [...] - - Height 185 cm (6' 0.84) 03/24/2015 10:08 AM CDT Body Mass Index - - documented in this encounter Miscellaneous Notes Miscellaneous - Cintia Cobb M.D. - 03/27/2015 5:19 PM CDT Results Notification Document Contains Addenda Addendum by ANOOP QUEVEDO LPN on 29 March 2015 09:56:34 CDT Patients Magali was update voiced understanding of new orders they will stop the lantus and follow up in one month From: CINTIA KILGORE MD To: ART Family Medicine Nurse Bennett; Sent: 03/27/2015 17:19:49 CDT Show up: 03/27/2015 17:19:00 CDT Subject: Results Notification Please let Ed know that his A1c was very good, as are the blood sugars he left for review. From his notes, I believe he is taking 5 units of Lantus daily. Please have him stop his Lantus. I would like to see him in 1 month for recheck with his blood sugar readings. Thanks, Cintia Results: Date Result Name Value Ref Range 03/24/2015 11:10 Hgb A1c 5.5 % A1C ( - <=5.6) Source: [facility] POWERCHART Document Id: [id number] Electronically signed by Conversion, [facility] Real Estate Legal Assistant [id number] at 02/01/2017 11:35 PM CDT documented in this encounter Plan of Treatment Not on filedocumented as of this encounter Procedures Procedure Name Priority Date/Time Associated Diagnosis Comme nts HEMOGLOBIN A1C, B Routine 03/24/2015 11:10 AM Res ults for this CDT procedure are i n the results section. documented in this encounter Results Hemoglobin A1c (03/24/2015 11:10 AM CDT) P athologist Signature Hemoglobin A1c, 5.5 <=5.6 A1C POWERCHART B Specimen (Source) Anatomical Collection Method Collection Time Re ceived Time Location / / Volume Laterality Blood 03/24/2015 11:10 AM CDT Cintia Copeland M.D. LAB BLOOD ADD-ON Performing Organization Address City/State/ZIP Code Phon e Number POWERCHART documented in this encounter Visit Diagnoses Not on filedocumented in this encounter Additional Health Concerns Assessment Noted Time PHQ-9 Depression Total Score: 18 02/14/2013 9:53 AM CD T documented as of this encounter
--- OUTSIDE RECORDS SUMMARY | 2022-07-29 10:52 | XMS_ITS | Encounter Summary ---
:1960 Author Organization [facility] Address [address] [place] [address] Care Team Providers Name Role Phone Unavailable Primary Care Provider Unavailable Encounter Details Date Type Department Care Team Description 08/04/2015 Hospital Encounter HX [facility] MD Piero Swann M.D. [address] [place] [phone] (Wo rk) Social History Tobacco Use Types Packs/Day Years Used Date Smoking Tobacco: Never Assessed Sex Assigned at Date Recorded Not on file documented as of this encounter Last Filed Vital Signs Vital Sign Reading Time Taken Comments Blood Pressure 115/60 08/04/2015 11:59 AM [employer] SAL[employer] EXECUTIVE Pulse 42 08/04/2015 11:59 AM [employer] SAL[employer] EXECUTIVE Temperature - - Respiratory Rate 16 08/04/2015 11:59 AM [employer] SALES EXECUTIVE Oxygen Saturation - - Inhaled Oxygen Concentration - - Weight - - Height 185 cm (6' 0.84) 08/04/2015 11:59 AM [employer] SALES EXECUTIVE Body Mass Index - - documented in this encounter Medications at Time of Discharge Medication Sig Dispensed Refills Start Date End Date ferrous sulfate 325 mg Take 1 tablet by 0 015 11/24/2017 (65 mg iron) tablet mouth 2 (two) times a day. documented as of this encounter Miscellaneous Notes Miscellaneous - Judith Pate L.P.N. - 08/21/2015 9:44 AM CST *General Message From: JUDITH PATE LPN (ID Family Medicine Nurse [place]) To: JUDITH PATE LPN; Sent: 08/21/2015 09:44:40 [employer] SALES EXECUTIVE Subject: *General Message pt called and left message on voicemail stating he is sick, coughing, sore throat that hurts so bad. x3days per pt request to leave a message left a message and informed pt that he will need to make and appt or call and speak to an Expert RN nurse line. Source: [facility] POWERCHART Document Id: [id number] Miscellaneous - Shirlene Abbott R.N. - 08/13/2015 8:38 AM CST COLIN Document Contains Addenda Addendum by VINEET RAMIREZ LPN on 16 August 2015 07:24:01 [employer] SALES EXECUTIVE From: VINEET RAMIREZ LPN To: SHIRLENE ABBOTT RN; Cc: KEVIN KILGORE MD; Sent: 08/16/2015 07:24:01 [employer] SALES EXECUTIVE Subject: FW: COLIN pt left detailed message that trell Donaldson called and talked to his and told her about lab workthat was done. From part of his message it was Sorin who called and gave her the info below. He states that it is best to call her cell # of [phone] and leave a message as she can't remember thephone conversations and then he can listen to it when he gets home. He notes that his dietican Hong, says his fluid wt loss is from the medication he takes and would like to talke to Kevin regarding this. I will print the message below and mail it to him and will alsocall wifes cell and leave the message. Addendum by VINEET RAMIREZ LPN on 16 August 2015 07:16:50 [employer]B SALES EXECUTIVE From: VINEET RAMIREZ LPN To: VINEET RAMIREZ LPN; Sent: 08/16/2015 07:16:50 [employer]B SALES EXECUTIVE Subject: FW: FYI Addendum by SORIN VARGAS RN on 15 August 2015 09:21:07 [employer]B SALES EXECUTIVE updated with message below, verbalized understanding and able to repeat back. Addendum by KEVIN KILGORE MD on 15 August 2015 07:59:43 [employer]B SALES EXECUTIVE From: KEVIN KILGORE MD To: ID Family Medicine Nurse [place]; Sent: 08/15/2015 07:59:43 [employer] SALES EXECUTIVE Subject: call patient Please let patient know that I have reviewed the blood sugars he dropped off. They overall look good. I would still prefer that he check his blood sugars at least 2 times per week. His A1c did go up a little to 6.0%. In regards to his weight fluctuations, I think he needs to follow up with the dietitian in [place] as we had discussed at his last appt. In regards to have weight in areas that he doesn't want to, it would be a plastic surgery procedure to improve this. His hemoglobin is also better. I would like to see him back whenever he can schedule an appt. And please clarify once again that he needs to stay on the B12 shots because he does not have the portion of his stomach that absorbs Vit B12. Kevin Segura From: SHIRLENE ABBOTT RN To: KEVIN KILGORE MD; Sent: 08/13/2015 08:38:46 [employer]2B SALES EXECUTIVE Subject: FYI Pt called to ask if he could stop taking his B12 shots, says he hasn't done them. Advised again as [facility] in [facility] that he still needs to take them, he can't go on the oral pills due to the absorption. Also asks if he can stop taking his blood sugar as he considers himself a 'non- diabetic,' 'and I just want to check it once a week when I want to.' Advised as a nurse did in July that he needs to keep taking it 3x/wk. Also feels that tip of little finger has little feeling once in awhile which he thinks is from a nerve in his elbow. Advised to make appt for that. Called to with above as pt directed me to as he would not be answering his phone. Source: [employer] Document Id: [id number] Miscellaneous - Shirlene Abbott R.N. - 08/09/2015 3:45 PM CST *General Message From: SHIRLENE ABBOTT RN Sent: 08/09/2015 15:45:14 [employer]B SALES EXECUTIVE Subject: *General Message Pt called for A1C, result given Source: [employer] Document Id: [id number] Electronically signed by Conversion, [facility] [employer] Professional [id number] at 02/02/2017 6:21 AM CDT Lulycellwalter - Anoop Mujica L.PAugustine - 08/04/2015 12:06 PM CST *General Message From: ANOOP MUJICA LPN (ID Family Medicine Nurse [place]) To: KEVIN KILGORE MD; Sent: 08/04/2015 12:06:33 [employer]B SALES EXECUTIVE Subject: *General Message Patient came in on sat clinic for a nurse only B/P check and had his HGB drawn he is wondering if you would like to add a Hgb A1c to that order as lab said the blood sample is good for 7 days. He leftyou a private envelope that I placed on your desk for review. His B/P was 115/60 p 42 reg which patient reports is normal for him. Please review and advise on any further orders Thanks Anoop Source: [employer] Document Id: [id number] Electronically signed by Conversion, [facility] [employer] Services Professional [id number] at 02/02/2017 6:21 AM CDT Osbaldo - Anoop Mujica L.PPiliNPili - 08/04/2015 11:59 AM CST Ambulatory Vitals Height Weight Ambulatory Vitals Height Weight Entered On: 08/04/2015 12:03 [employer]B SALES EXECUTIVE Performed On: 08/04/2015 11:59 [employer]B SALES EXECUTIVE by ANOOP MUJICA LPN Vitals/Ht/Wt Peripheral Pulse Rate : 42 /min (<LLOW) Respiratory Rate : 16 /min Heart Rhythm : Regular Systolic Blood Pressure : 115 mmHg Diastolic Blood Pressure : 60 mmHg NIBP Mean : 78 mmHg BP Location : Left upper extremity Blood Pressure Cuff Size : Large SpO2 : 99 % Oxygen Therapy : Room air Height : 185 cm(Converted to: 6 ft 1 inch(es), 73 inch(es)) ANOOP MUJICA LPN - 08/04/2015 11:59 [employer]2B SALES EXECUTIVE Source: [facility] POWERCHART Document Id: [id number] B2B SALES EXECUTIVE!13 [employer]2B SALES EXECUTIVE documented in this encounter Plan of Treatment Not on filedocumented as of this encounter Procedures Procedure Name Priority Date/Time Associated Diagnosis Comme nts HEMOGLOBIN A1C, B Routine 08/04/2015 10:45 AM Res ults for this [employer] SALES EXECUTIVE procedure are i n the results section. documented in this encounter Results (ABNORMAL) Hemoglobin A1c (08/04/2015 10:45 AM [employer] SALES EXECUTIVE) P athologist Signature Hemoglobin A1c, 6.0 (H) <=5.6 A1C POWERCHART B Specimen (Source) Anatomical Collection Method Collection Time Re ceived Time Location / / Volume Laterality Blood 08/04/2015 10:45 AM [employer] SALES EXECUTIVE Kevin Copeland M.D. LAB BLOOD ADD-ON Performing Organization Address City/State/ZIP Code Phon e Number POWERCHART documented in this encounter Visit Diagnoses Not on filedocumented in this encounter Additional Health Concerns Assessment Noted Time PHQ-9 Depression Total Score: 18 02/14/2013 9:53 AM CD T documented as of this encounter
--- OUTSIDE RECORDS SUMMARY | 2022-07-29 10:52 | XMS_ITS | Encounter Summary ---
:1960 Author Organization [facility] Address [address] [place] [address] Care Team Providers Name Role Phone Unavailable Primary Care Provider Unavailable Encounter Details Date Type Department Care Team Description 03/24/2015 Hospital Encounter HX [facility] Cintia Aguirre M.D. [address] [place] [phone] (Wo rk) Social History Tobacco Use Types Packs/Day Years Used Date Smoking Tobacco: Never Assessed Sex Assigned at Date Recorded Not on file documented as of this encounter Last Filed Vital Signs Vital Sign Reading Time Taken Comments Blood Pressure 126/67 03/24/2015 11:42 AM CDT Pulse 60 03/24/2015 11:42 AM CDT Temperature - - Respiratory Rate - - Oxygen Saturation - - Inhaled Oxygen Concentration - - Weight 120 kg (264 lb 1.8 oz) 03/24/2015 10:27 AM CDT Height 185 cm (6' 0.84) 03/24/2015 11:42 AM CDT Body Mass Index 35 03/24/2015 10:27 AM CDT documented in this encounter Nursing Notes Tali Torres, L.P.N. - 03/24/2015 10:41 AM CDT nurse visit thursday Patient walked in for a blood pressure. I brought patient back to the clinic and was asking for verification of Name and Date of . Patient refused. He asked if Dr. Song was available and i told him that she was seeing patients. He said no she's not she is sitting over there pointing to Dr. Song sitting at her desk. He had an envelope to give her and i told him i could give it to her.And he refused stating he would do it. As he was getting on the scale because he wished to have his weight checked he said i was bossy and wanted a different nurse. I told him that was fine and when another nurse was available they would be in to check his blood pressure. Electronically Signed By: TALI TORRES On: 03/24/2015 10:48 AM Source: [facility] POWERCHART Document Id: [id number] documented in this encounter Miscellaneous Notes Miscellaneous - Anoop Mujica L.P.N. - 03/24/2015 11:53 AM CDT *General Message Document Contains Addenda Addendum by ANOOP MUJICA LPN on 29 March 2015 14:56:18 CDT Patients updated Addendum by CINTIA KILGORE MD on 29 March 2015 07:01:13 CDT From: CINTIA KILGORE MD To: ANOOP MUJICA LPN; Sent: 03/29/2015 07:01:13 CDT Subject: RE: *General Message Yes- Dr. Sparks and Dr. Saez both want to see him at least one more time. I updated Dr. Saez on his progress and she was quite pleased. I had sent another message re: stopping his insulin which she agrees with. Cintia Segura From: ANOOP MUJICA LPN To: CINTIA KILGORE MD; Sent: 03/24/2015 11:53:16 CDT Subject: *General Message Patient came in for a Sat nurse only B/P check he offers no complaints he reports that he was a little upset prior to me checking his blood pressure. He reports that his sets up his medication and that he believes he is taking all medications as ordered. He left some paperwork for you to review he wanted me to let you know that the highlighted areas is when he cut from 10units to 5units. His weight was 253.5 at home in his undergarments. He left you a 14 day average of his blood sugars. He wasalso wondering if you wanted him to follow up with Dr. Sparks. His Blood pressure was 143/73 p 60 reg per sitting recheck 126/67 p 60. Please advise on any further orders Thanks Anoop [facility] Document Id: [id number] Miscellwalter - Anoop Mujica LPiliP.NPili - 03/24/2015 11:42 AM CDT Ambulatory Vitals Height Weight Ambulatory Vitals Height Weight Entered On: 03/24/2015 11:42 CDT Performed On: 03/24/2015 11:42 CDT by ANOOP MUJICA LPN Vitals/Ht/Wt Peripheral Pulse Rate : 60 /min Heart Rhythm : Regular Systolic Blood Pressure : 126 mmHg Diastolic Blood Pressure : 67 mmHg NIBP Mean : 87 mmHg BP Location : Left upper extremity Blood Pressure Cuff Size : Large Height : 185 cm(Converted to: 6 ft 1 inch(es), 73 inch(es)) ANOOP MUJICA LPN - 03/24/2015 11:42 CDT Source: [employer] Document Id: [id number] CDT!10 Lulycellaneous - Anoop Mujica L.P.NPili - 03/24/2015 10:27 AM CDT Ambulatory Vitals Height Weight Ambulatory Vitals Height Weight Entered On: 03/24/2015 10:34 CDT Performed On: 03/24/2015 10:27 CDT by ANOOP MUJICA LPN Vitals/Ht/Wt Peripheral Pulse Rate : 60 /min Heart Rhythm : Regular Systolic Blood Pressure : 143 mmHg (HI) Diastolic Blood Pressure : 73 mmHg NIBP Mean : 96 mmHg BP Location : Left upper extremity Blood Pressure Cuff Size : Large Height : 185 cm(Converted to: 6 ft 1 inch(es), 73 inch(es)) Actual Weight : 119.8 kg(Converted to: 264 lb 2 oz) Weight Source : Standing scale Dosing Weight Clinic : 119.8 kg Clinic BSA : 2.48 Body Mass Index : 35 kg/m2 ANOOP MUJICA LPN - 03/24/2015 10:27 CDT Source: [employer] Document Id: [id number] CDT!15 documented in this encounter Plan of Treatment Not on filedocumented as of this encounter Visit Diagnoses Not on filedocumented in this encounter Additional Health Concerns Assessment Noted Time PHQ-9 Depression Total Score: 18 02/14/2013 9:53 AM CD T documented as of this encounter
--- OUTSIDE RECORDS SUMMARY | 2022-07-29 10:52 | XMS_ITS | Encounter Summary ---
:1960 Author Organization [facility] Address [address] [place] [address] Care Team Providers Name Role Phone Unavailable Primary Care Provider Unavailable Encounter Details Date Type Department Care Team Description 08/24/2015 Hospital Encounter HX [facility] ED Alon Benavides M.D. [address] [place], [place] [address] (Wo rk) Social History Tobacco Use Types Packs/Day Years Used Date Smoking Tobacco: Never Assessed Sex Assigned at Date Recorded Not on file documented as of this encounter Last Filed Vital Signs Vital Sign Reading Time Taken Comments Blood Pressure 128/80 08/24/2015 8:11 PM BACK HANGER Pulse 53 08/24/2015 8:11 PM BACK HANGER Temperature - - Respiratory Rate 16 08/24/2015 8:11 PM BACK HANGER Oxygen Saturation - - Inhaled Oxygen Concentration - - Weight 95 kg (209 lb 7 oz) 08/24/2015 6:36 PM BACK HANGER Height 180 cm (5' 10.87) 08/24/2015 8:11 PM BACK HANGER Body Mass Index 29.32 08/24/2015 6:36 PM BACK HANGER documented in this encounter Discharge Summaries Nik Cisneros R.N. - 08/24/2015 8:32 PM CST ED Discharge Instructions [address] [address] Name: JEREMY NOEMÍ Jim Date of : 1960 12:00 AM Visit Date: 08/24/2015 6:28 PM [facility] Number: [id number] Address: [address] [facility] [id number] Primary Care Provider: KEVIN KILGORE MD IMPORTANT: [facility] in [place] would like to thank you for allowing us to assist you with your healthcare needs. The following includes patient education materials and informationregarding your injury/illness. Diagnosis: Viral Syndrome Follow-Up Instructions: With: Address: When: KEVIN KILGORE [address] [place] [address] [phone] [facility] (1) Within As Needed Comments: As needed. If your lightheadedness continues or you don't feel better by Thursday then call your PCP. Focus on hydration. Your Upcoming Appointments: Date Time Location Provider No Appointments found Patient Education Materials: Viral Syndrome (Adult) A viral illness may cause a number of symptoms. The symptoms depend on the part of the body that thevirus affects. If it settles in the nose, throat, and lungs, it may cause cough, sore throat, congestion, and sometimes headache. If it settles in the stomach and intestinal tract, it may cause vomiting and diarrhea. Sometimes it causes vague symptoms like aching all over, feeling tired, loss of appetite, or fever. A viral illness usually lasts 1 to 2 weeks, but sometimes it lasts longer. In some cases, a more serious infection can look like a viral syndrome in the first few days of the illness. You may need another exam and additional tests to know the difference. Watch for the warning signs listed below. Home care Follow these guidelines for taking care of yourself at home: ?? If symptoms are severe, rest at home for the first 2 to 3 days. ?? Stay away from cigarette smoke - both your smoke and the smoke from others. ?? You may use acetaminophen or ibuprofen for fever, muscle aching, and headache, unless another medicine was prescribed for this. If you have chronic liver or kidney disease or ever had a stomach ulcer or GI bleeding, talk with your doctor before using these medicines No one who is younger than 18 and ill with a fever should take aspirin. It may cause severe liver damage. ?? Your appetite may be poor, so a light diet is fine. Avoid dehydration by drinking 8 to 12 8-ounceglasses of fluids each day. This may include water; orange juice; lemonade; apple, grape, and cranberry juice; clear fruit drinks; electrolyte replacement and sports drinks; and decaffeinated teas and coffee. If you have been diagnosed with a kidney disease, ask your doctor how much and what types of fluids you should drink to prevent dehydration. If you have kidney disease, drinking too much fluid can cause it build up in the your body and be dangerous to your health. ?? Gvpf-mox-tclsums remedies won't shorten the length of the illness but may be helpful for cough, sore throat; and nasal and sinus congestion. Don't use decongestants if you have high blood pressure. Follow-up care Follow up with your health care provider if you do not improve over the next week. When to seek medical care Get prompt medical attention if any of these occur: ?? Cough with lots of colored sputum (mucus) or blood in your sputum ?? Chest pain, shortness of breath, wheezing, or difficulty breathing ?? Severe headache; face, neck, or ear pain ?? Severe, constant pain in the lower right side of your belly (abdominal) ?? Continued vomiting (cant keep liquids down) ?? Frequent diarrhea (more than 5 times a day); blood (red or black color) or mucus in diarrhea ?? Feeling weak, dizzy, or like you are going to faint ?? Extreme thirst ?? Fever of 100.4? F (38? C) oral or higher, not better with fever medication ?? Convulsion ?? [phone] [facility], [address] [place] [address]. All rights reserved. This information is not [...] if you dont have one. Go to [email or web address] and click on Create Your Account. Then, follow the directions to complete the online form. Youll be asked for your [facility] number which you can find at the top of this document. ED Tests and Procedures: Order Status XR Chest 2 Views Completed Glucose POC. Completed Discharge Prescriptions & Home Medications: Medication/Strength Dose Route Frequency Indications/Special Instructions/Comments/Notes furosemide (Lasix) once a day multivitamin with minerals (Flintstones Complete oral tablet, chewable) 1 tab(s) Chewed two times a day omeprazole (PriLOSEC 40 mg oral delayed release capsule) 40 mg Oral once a day amLODIPine (amLODIPine 10 mg oral tablet) 5 mg Oral once a day high blood pressure *ferrous sulfate (ferrous sulfate 325 mg (65 mg elemental iron) oral tablet) 325 mg Oral two times aday metoprolol (Metoprolol Tartrate 25 mg oral tablet) 12.5 mg Oral two times a day *tadalafil (Cialis 20 mg oral tablet) 20 mg Oral once a day as needed for Erectile dysfunction Take as needed prior to anticipated sexual activity cyanocobalamin (cyanocobalamin 1000 mcg/mL injectable solution) 1,000 mcg Subcutaneous once a month vitamin B12 deficiency simvastatin (simvastatin 40 mg oral tablet) 40 mg Oral once a day (at bedtime) high cholesterol *allopurinol (allopurinol 300 mg oral tablet) 150 mg Oral once a day kidney stones docusate-senna (Senna Plus) 1 tab(s) Oral two times a day calcium carbonate (Tums 500) 2 tab(s) Oral two times a day * [...] a ride home with a responsible libertarian. JEREMY Contreras ED J , or responsible libertarian [...] a ride home with a responsible libertarian. JEREMY Contreras ED J , or responsible libertarian have received this information and my questions have been answered. I have discussed any challenges I see with this plan with the nurse or physician. Patient Signature or Responsible Libertarian/Relationship Date Time Provider Signature Date Time Source: [facility] POWERCHART Document Id: [id number] HANGER Nik Cisneros R.N. - 08/24/2015 8:32 PM CST ED Depart Summary [facility] Emergency Department Clinical Discharge Summary PERSON INFORMATION Name NOEMÍ LUNA Age 55 Years 1960 12:00 AM Sex Male Language Hungarian PCP KEVIN KILGORE MD Marital Status N [id number] Visit Id Visit Reason Body aches; Difficulty breathing/shakes/head pain Specialty Enc Type Emergency Med Service Emergency Medicine Referred by Track Group [facility] ED Discharge 08/24/2015 8:32 PM Tracking Id [id number] Checkout 08/24/2015 8:32 PM Checkin 08/24/2015 6:28 PM Acuity 5 -Non Urgent Dispo Type * Discharged to Home or Self Care Arrival 08/24/2015 6:28 PM Reg Status Complete LOS 000 02:04 Address: [address] [phone] Comment: PROVIDER INFORMATION Provider Role Provider Contact Time ALON BENAVIDES MD ED Provider 08/24/15 18:53 BOBBY MUNOZ ALLIANCE DIRECTOR Nurse 08/24/15 18:53 NIK CISNEROS ALLIANCE DIRECTOR Nurse 08/24/15 20:32 DIAGNOSIS Viral Syndrome Comment: PATIENT EDUCATION INFORMATION Instructions: VIRAL SYNDROME (Adult) Follow up: With: Address: When: KEVIN FERRER-[address] [address] [phone] [facility] (1) Within As Needed Comments: As needed. If your lightheadedness continues or you don't feel better by Thursday then call your PCP. Focus on hydration. Source[facility] Document Id: [id number] HANGER documented in this encounter Medications at Time of Discharge Medication Sig Dispensed Refills Start Date End Date ferrous sulfate 325 mg Take 1 tablet by 0 015 11/24/2017 (65 mg iron) tablet mouth 2 (two) times a day. documented as of this encounter ED Notes Nik Cisneros R.N. - 08/24/2015 8:20 PM CST ED Pain Assessment ED Pain Assessment Entered On: 08/24/2015 20:20 BACK HANGER Performed On: 08/24/2015 20:20 BACK HANGER by NIK CISNEROS RN Pain Assessment Pain Symptoms : Yes NIK CISNEROS RN - 08/24/2015 20:20 BACK HANGER Source: [employer] Document Id: [id number] BACK HANGER!3 HANGER Nik Cisneros R.N. - 08/24/2015 8:19 PM CST ED Disposition Summary ED Disposition Summary Entered On: 08/24/2015 20:20 BACK HANGER Performed On: 08/24/2015 20:19 BACK HANGER by NIK CISNEROS RN ED Disposition Summary Accompanied By : Alone Mode of Discharge : Ambulatory Transportation : Private vehicle Discharge From ED With : Home Med List Printed Discharge Instructions Given to Patient : Yes Patient Status at Discharge from ED : Unchanged NIK CISNEROS RN - 08/24/2015 20:19 BACK HANGER [facility] Document Id: [id number] BACK HANGER!8 HANGER Alon Benavides M.D. - 08/24/2015 7:24 PM CST General Medical *ED Document Contains Addenda Addendum by ALON BENAVIDES MD on 24 August 2015 20:15 BACK HANGER The patient appears well, does not appear acutely ill. Discussed need for follow up if symptoms continue or worsen. Discussed issue that this is consistent with a virus and not a bacterial illness. Patient did request antibiotics multiple times, but I explained to him that I really did not think theywould be helpful and could potentially cause harm. Electronically Signed By: ALON BENAVIDES MD On: 08/24/2015 07:57 PM Modified by and Electronically Signed by: ALON BENAVIDES MD On: 08/24/2015 07:57 PM Modified by and Electronically Signed by: ALON BENAVIDES MD On: 08/24/2015 08:15 PM General Medical *ED Patient: NOEMÍ LUNA Age: 55 years Sex: Male : 1960 Author: ALON BENAVIDES MD Attachments: None Basic Information Additional information: Chief Complaint from Nursing Triage Note : Chief Complaint Description 08/24/2015 18:45 BACK HANGER Chief Complaint Description see triage note 08/24/2015 18:36 BACK HANGER Chief Complaint Description Body aches, cough, headache, shakes, since 08/18/15. . History of Present Illness The patient presents with Patient comes in complaining of nearly 1 week of multiple symptoms. These include abdominal cramping, headache, nasal congestion, mostly dry cough (slight yellowish sputum sometimes), muscle aches, loose stools, and light headed ness. He has felt hot and woke up in bed very sweaty the last 2 nights. No definite fever. No chills otherwise. Has taken a little bit of Tylenol. No vomiting. No sick contacts. Able to drink normally, eating less.. The course/duration of symptoms is fluctuating in intensity. Review of Systems Constitutional symptoms: Weakness. Skin symptoms: Negative except as documented in HPI. ENMT symptoms: Sore throat and sinus pain. Respiratory symptoms: Negative except as documented in [...] Severity Not Documented Influenza Virus Vaccine- Diarrhea.. Past Medical/ Family/ Social History Medical history: Active Fracture Closed Radial head (813.05): Onset on 09/29/2012 at 52 years. Comments: 09/30/2012 BACK HANGER 15:06 STEVE COUCH CNP left Genital warts (078.19) Comments: 09/30/2013 BACK HANGER 11:47 BACK HANGER - ANOOP QUEVEDO R RADIOLOGY EQUIPMENT SERVICER onset unknown Tinea pedis* (110.4) Comments: 09/30/2013 BACK HANGER 11:47 BACK HANGER ANOOP GONZALEZ R RADIOLOGY EQUIPMENT SERVICER onset unknown Tinea cruris. (110.3) Comments: 09/30/2013 BACK HANGER 11:47 BACK HANGER ANOOP GONZALEZ R RADIOLOGY EQUIPMENT SERVICER onset unknown, DM 2, HTN. Surgical history: Gastric bypass ([id number]) on 11/19/2014 at 54 Years. Cystoscopy ([id number]) on 12/26/2009 at 49 Years. Comments: 02/20/2010 08:36 - STEVE ANDREA CNP [facility] / normal PSA, TOTAL SCREENING (G0103) on 12/26/2009 at 49 Years. Comments: 02/20/2010 08:38 - STEVE ANDREA CNP Done at [facility] / Result: 1.55 Discectomy ([id number]) on 02/19/1989 at 28 Years. Comments: 12/28/2009 09:38 - STEVE ANDREA CNP lumbar L4-L5. Social history: Reviewed as documented in chart, Alcohol use: Denies, Tobacco use: Denies, Drug use:Denies. Physical Examination Vital Signs: Vital Signs 08/24/2015 18:48 BACK HANGER Systolic Blood Pressure 131 mmHg Diastolic Blood Pressure 79 mmHg 08/24/2015 18:36 BACK HANGER Temperature Core 37.2 DegC Peripheral Pulse Rate 60 /min Respiratory Rate 18 /min SpO2 98 % Systolic Blood Pressure 141 mmHg HI Diastolic Blood Pressure 80 mmHg Mean Arterial Pressure 100 mmHg , Measurements 08/24/2015 18:48 BACK HANGER Height 180 cm 08/24/2015 18:36 BACK HANGER Height 180 cm Height Source Stated Dosing Weight 95.00 kg Actual Weight 95 kg Weight Source Standing scale Body Mass Index 29.32 kg/m2 , SpO2 08/24/2015 18:36 BACK HANGER SpO2 98 % . General: Alert and no acute distress. Skin: Warm, dry, intact, no pallor and no rash. Head: Normocephalic and atraumatic. Neck: Supple and trachea midline. Eye: Pupils are equal, round and reactive to light and extraocular movements are intact. Ears, nose, mouth and throat: Oral mucosa moist and no pharyngeal erythema or exudate. Cardiovascular: Regular rate and rhythm, No murmur, Normal peripheral perfusion and minimal b/l LE edema. Respiratory: Lungs are clear to auscultation, respirations are non-labored, breath sounds are equal and Symmetrical chest wall expansion. Gastrointestinal: Soft, Nontender, Non distended and Normal bowel sounds. Neurological: Alert and oriented to person, place, time, and situation and No focal neurological deficit observed. Psychiatric: Cooperative, appropriate mood & affect and normal judgment. Medical Decision Making Rationale:This should be a viral syndrome. I was going to send him home after the blood glucose (which excluded any hyperosmolar issues), but he was very insistent about getting a chest x-ray. CXR negative. Will send home.. Chest X-Ray:No acute disease process, interpretation by Emergency Physician. Impression and Plan Diagnosis viral syndrome Plan Condition: Stable. Disposition: Medically cleared, Discharged: Time 08/24/2015 19:56:00, to home. Patient was given the following educational materials: VIRAL SYNDROME (Adult), VIRAL SYNDROME (Adult), VIRAL SYNDROME (Adult). Follow up with: KEVIN Qiu As Needed As needed. If your lightheadedness continues or you don't feel better by Thursday then call your PCP. Focus on hydration.. Counseled: Patient, Regarding diagnosis, Regarding diagnostic results, Regarding treatment plan, Patient indicated understanding of instructions. Notes: Safe to go home with supportive measures.. Electronically Signed By: ALON BENAVIDES MD On: 08/24/2015 07:57 PM Modified by and Electronically Signed by: ALON BENAVIDES MD On: 08/24/2015 07:57 PM Source: [facility] POWERCHART Document Id: [id number]} HANGER Bobby Munoz RPiliN. - 08/24/2015 6:45 PM CST ED Primary Assessment Document Has Been Updated ED Primary Assessment Entered On: 08/24/2015 19:04 BACK HANGER Performed On: 08/24/2015 18:45 BACK HANGER by BOBBY MUNOZ RN Reason For Visit (As Of: 08/24/2015 19:04:13 BACK HANGER) Problems(Active) BPH without urinary obstruction (ICD-9-CM :600.00 ) Name of Problem: BPH without urinary obstruction; Recorder: STEVE ANDREA CNP; Confirmation: Confirmed ; Classification: Medical ; Code: 600.00 ; Contributor System: [employer] ; Last Updated: 02/15/2010 10:00 CDT ; [...] System: PowerChart ; Last Updated: 07/24/2011 10:45 BACK HANGER ; Life Cycle Date: 12/05/2010 ; Life Cycle Status: Active ; Responsible Provider: STEVE ANDREA CNP; Vocabulary: ICD-9-CM Eczema (ICD-9-CM :692.9 ) Name of Problem: Eczema ; Recorder: STEVE ANDREA CNP; Confirmation: Confirmed ; Classification: Medical ; Code: 692.9 ; Contributor System: [employer] ; Last Updated: 01/25/2014 16:29 CDT ; [...] System: PowerChart ; Last Updated: 07/29/2014 7:02 BACK HANGER ; Life Cycle Status: Active ; Responsible [...] System: PowerChart ; Last Updated: 09/30/2012 15:06 BACK HANGER ; Life Cycle Date: 09/30/2012 ; Life [...] ICD-9-CM ; Comments: 09/30/2013 11:47 - QUEVEDO, ANOOP R RADIOLOGY EQUIPMENT SERVICER onset unknown Hyperlipidemia (ICD-9-CM :272.4 ) Name [...] Code: 695.89 ; Last Updated: 07/14/2012 14:36 BACK HANGER ; Life Cycle Status: Active ; Responsible [...] System: PowerChart ; Last Updated: 09/05/2010 9:56 BACK HANGER ; Life Cycle Date: 09/05/2010 ; Life Cycle Status: Active ; Responsible Provider: STEVE ANDREA CNP; Vocabulary: ICD-9-CM ; Comments: 09/30/2013 11:ANOOP ISAAC R RADIOLOGY EQUIPMENT SERVICER onset unknown Optic disc cupping (ICD-9-CM :377.14 [...] Medical ; Code: 110.4 ; Contributor System: [employer] ; Last Updated: 02/02/2014 8:24 CDT ; Life Cycle Date: 06/01/2013 ; Life Cycle Status: Active ; Responsible Provider: MARILUZ FRAGA MD; Vocabulary: ICD-9-CM ; Comments: 09/30/2013 11:ANOOP ISAAC R RADIOLOGY EQUIPMENT SERVICER onset unknown Ulcer of skin NOS (ICD-9-CM :707.9 ) Name of Problem: Ulcer of skin NOS ; Recorder: HALEIGH SCHULTZ CNP; Confirmation: Confirmed ; Classification: UPDATE NEEDED ; Code: 707.9 ; Contributor System: [employer]link ; Last Updated: 09/18/2010 8:25 BACK HANGER ; Life Cycle Date: 09/18/2010 ; Life Cycle Status: Active ; Responsible Provider: HALEIGH SCHULTZ CNP; Vocabulary: ICD-9-CM ; Comments: 09/30/2013 11:47 - ANOOP QUEVEDO LPN onset unknown Unspecified Adjustment Reaction (ICD-9-CM :309.9 ) Name of Problem: Unspecified Adjustment Reaction ; Onset Date: 05/05/2013 ; Confirmation: Confirmed ; Classification: Medical ; Code: 309.9 ; Contributor System: [facility] ; Last Updated: 12/03/2013 18:36 CDT ; Life Cycle Status: Active ; Vocabulary: ICD-9-CM ; Comments: - Unspecified adjustment reaction Urge Incontinence (ICD-9-CM :788.31 ) Name of Problem: Urge Incontinence ; Recorder: STEVE ANDREA; Confirmation: Confirmed ; Classification: Medical ; Code: 788.31 ; Contributor System: [employer] ; Last Updated: 02/20/2010 8:39 CDT ; Life Cycle Date: 02/20/2010 ; Life Cycle Status: Active ; Responsible Provider: STEVE ANDREA CNP; Vocabulary: ICD-9-CM ; Comments: 09/30/2013 11:46 - ANOOP QUEVEDO LPN onset unknown Diagnoses(Active) Body aches Date: 08/24/2015 ; Diagnosis Type: Reason For Visit ; Confirmation: Complaint of ; Clinical Dx: Body aches ; Classification: Medical ; Clinical Service: Emergency medicine ; Code: PNED ; Probability: 0 ; Diagnosis Code: [id number] Triage Chief Complaint Description : see triage note Mode of Arrival ED : Private vehicle Track : Medical Languages : Hungarian Treatments Prior to Arrival : None Is Patient Female and 13-50 no hysterectomy : No BOBBY MUNOZ RN - 08/24/2015 18:55 BACK HANGER Pain Assessment Pain Symptoms : Yes BOBBY MUNOZ RN - 08/24/2015 18:55 BACK HANGER Respiratory Airway : Patent Respirations : Unlabored Respiratory Pattern : Regular Oxygen Therapy : Room air Respiratory Detailed Assessment : Yes BOBBY MUNOZ RN - 08/24/2015 18:55 BACK HANGER Resp Detailed Respiratory Patient Stated Symptoms : None Distress : None Cough : Productive Sputum Amount : Scant Respiratory Note : body aches, sinus congestion, rhinorrhea, headache. BOBBY MUNOZ RN - 08/24/2015 18:55 BACK HANGER Cardiovascular Heart Rhythm : Regular Skin Color : Normal for ethnicity Skin Description : Dry Skin Temperature : Cool BOBBY MUNOZ RN - 08/24/2015 18:55 BACK HANGER Neurological Last Well Time Known : Not applicable Level of Consciousness : Alert Orientation : Appropriate for age Characteristics of Speech : Appropriate for age Neuro Patient Stated Symptoms : None Gait : Steady Swallowing Difficulty/Aspiration Risk : Cough BOBBY MUNOZ RN - 08/24/2015 18:55 BACK HANGER ED Psychosocial Affect/Behavior : Calm, Appropriate Domestic Abuse Concerns : None Behavioral Health Screen/Safety Assmt : No BOBBY MUNOZ RN - 08/24/2015 18:55 BACK HANGER Gastrointestinal Nutrition ED : Adequate BOBBY MUNOZ RN - 08/24/2015 18:55 BACK HANGER Musculoskeletal Fall Prevention Education Provided : Yes BOBBY MUNOZ RN - 08/24/2015 18:55 BACK HANGER Social Habits Exposure to Tobacco Smoke : Care provider denies smoking in home, Other: never Smoking Status : Never smoker Tobacco 2A : Unknown BOBBY MUNOZ RN - 08/24/2015 18:55 BACK HANGER Alcohol Use Grid Alcohol Use : No BOBBY MUNOZ RN - 08/24/2015 18:55 BACK HANGER Recreational Drug Use Grid Drug Use : None BOBBY MUNOZ RN - 08/24/2015 18:55 BACK HANGER Source: [facility] POWERCHART Document Id: [id number] BACK HANGER!53 HANGER Bobby Munoz RPiliN. - 08/24/2015 6:36 PM CST ED Triage Assessment Document Has Been Updated ED Triage Assessment Entered On: 08/24/2015 18:43 BACK HANGER Performed On: 08/24/2015 18:36 BACK HANGER by BOBBY MUNOZ RN Reason For Visit (As Of: 08/24/2015 18:43:01 BACK HANGER) Problems(Active) BPH without urinary obstruction (ICD-9-CM :600.00 ) Name of Problem: BPH without urinary obstruction; Recorder: STEVE ANDREA CNP; Confirmation: Confirmed ; Classification: Medical ; Code: 600.00 ; Contributor System: [employer] ; Last Updated: 02/15/2010 10:00 CDT ; [...] Medical ; Code: 250.02 ; Contributor System: [employer] ; Last Updated: 07/24/2011 10:45 BACK HANGER ; Life Cycle Date: 12/05/2010 ; Life Cycle Status: Active ; Responsible Provider: STEVE ANDREA CNP; Vocabulary: ICD-9-CM Eczema (ICD-9-CM :692.9 ) Name of Problem: Eczema ; Recorder: STEVE ANDREA CNP; Confirmation: Confirmed ; Classification: Medical ; Code: 692.9 ; Contributor System: [employer] ; Last Updated: 01/25/2014 16:29 CDT ; [...] System: PowerChart ; Last Updated: 07/29/2014 7:02 BACK HANGER ; Life Cycle Status: Active ; Responsible [...] System: PowerChart ; Last Updated: 09/30/2012 15:06 BACK HANGER ; Life Cycle Date: 09/30/2012 ; Life [...] Code: 695.89 ; Last Updated: 07/14/2012 14:36 BACK HANGER ; Life Cycle Status: Active ; Responsible [...] System: PowerChart ; Last Updated: 09/05/2010 9:56 BACK HANGER ; Life Cycle Date: 09/05/2010 ; Life [...] Vocabulary: ICD-9-CM ; Comments: 09/30/2013 11:ANOOP ISAAC RADIOLOGY EQUIPMENT SERVICER onset unknown Ulcer of skin NOS (ICD-9-CM :707.9 ) Name of Problem: Ulcer of skin NOS ; Recorder: HALEIGH SCHULTZ CNP; Confirmation: Confirmed ; Classification: UPDATE NEEDED ; Code: 707.9 ; Contributor System: PowerChart ; Last Updated: 09/18/2010 8:25 BACK HANGER ; Life Cycle Date: 09/18/2010 ; Life Cycle Status: Active ; Responsible Provider: HALEIGH SCHULTZ CNP; Vocabulary: ICD-9-CM ; Comments: 09/30/2013 11:ANOOP ISAAC RADIOLOGY EQUIPMENT SERVICER onset unknown Unspecified Adjustment Reaction (ICD-9-CM :309.9 ) Name of Problem: Unspecified Adjustment Reaction ; Onset Date: 05/05/2013 ; Confirmation: Confirmed ; Classification: Medical ; Code: 309.9 ; Contributor System: [facility] ; Last Updated: 12/03/2013 18:36 CDT ; Life Cycle Status: Active ; Vocabulary: ICD-9-CM ; Comments: - Unspecified adjustment reaction Urge Incontinence (ICD-9-CM :788.31 ) Name of Problem: Urge Incontinence ; Recorder: STEVE ANDREA; Confirmation: Confirmed ; Classification: Medical ; Code: 788.31 ; Contributor System: [employer] ; Last Updated: 02/20/2010 8:39 CDT ; Life Cycle Date: 02/20/2010 ; Life Cycle Status: Active ; Responsible Provider: STEVE ANDREA CNP; Vocabulary: ICD-9-CM ; Comments: 09/30/2013 11:46 - ANOOP QUEVEDO LPN onset unknown Diagnoses(Active) Body aches Date: 08/24/2015 ; Diagnosis Type: Reason For Visit ; Confirmation: Complaint of ; Clinical Dx: Body aches ; Classification: Medical ; Clinical Service: Emergency medicine ; Code: PNED ; Probability: 0 ; Diagnosis Code: [id number] Triage Chief Complaint Description : Body aches, cough, headache, shakes, since 08/18/15. Information Given By : Patient Accompanied By : Alone Mode of Arrival ED : Private vehicle Track : Medical Languages : Hungarian Patient Informed of Triage Location : Emergency department Vital Signs Assessed : Yes GCS Assessed : Yes Treatments Prior to Arrival : None Is Patient Female and 13-50 no hysterectomy : No BOBBY MUNOZ RN - 08/24/2015 18:36 BACK HANGER Vital Signs Temperature Core : 37.2 DegC(Converted to: 99.0 DegF) Peripheral Pulse Rate : 60 /min Respiratory Rate : 18 /min Systolic Blood Pressure : 141 mmHg (HI) Diastolic Blood Pressure : 80 mmHg NIBP Mean : 100 mmHg SpO2 : 98 % Height : 180 cm(Converted to: 5 ft 11 inch(es)) Actual Weight : 95 kg Actual Weight Conversion to Pounds : 209 lb Weight Source : Standing scale Height Source : Stated Body Mass Index : 29.32 kg/m2 BOBBY MUNOZ RN - 08/24/2015 18:36 BACK HANGER Lois Coma Eye Opening Response [place] : Spontaneously Best Verbal Response [place] : Oriented Best Motor Response [place] : Obeys simple commands Lois Coma Score : 15 SERA MUNOZY Soumya RN - 08/24/2015 18:36 BACK HANGER Pain Assessment Pain Symptoms : Yes BOBBY MUNOZ RN - 08/24/2015 18:36 BACK HANGER Pain Scale Pain Scale Non-Verbal PainAD : Open SERA MUNOZY Soumya RN - 08/24/2015 18:36 BACK HANGER PAINAD Breathing : Normal breathing Negative vocalization : None Facial expression : Smiling or inexpressive Body language : Relaxed Consolability : No need to console PAINAD Score : 0 BOBBY MUNOZ RN - 08/24/2015 18:36 BACK HANGER Comfort Measures Comfort Measures Grid Positioning : Yes BOBBY MUNOZ RN - 08/24/2015 18:36 BACK HANGER ED Physician Notification Time ED Physician Notification Time : 08/24/2015 18:42 BACK HANGER BOBBY MUNOZ RN - 08/24/2015 18:36 BACK HANGER ERIN ERIN Level 1 : No ERIN Level 2 : No ERIN Level 3 : One BOBBY MUNOZ RN - 08/24/2015 18:36 BACK HANGER DCP GENERIC CODE Tracking Acuity : 5 -Non Urgent Tracking Group : [facility] ED MUNOZBOBBY Soumya RN - 08/24/2015 18:36 BACK HANGER Allergy (As Of: 08/24/2015 18:43:01 BACK HANGER) Allergies (Active) Cipro Estimated Onset Date: Unspecified ; Created By: STEVE ANDREA CNP; Reaction Status: Active ;Category: Drug ; Substance: Cipro ; Type: Allergy ; Updated By: STEVE ANDREA CNP; Reviewed Date: 08/24/2015 18:42 BACK HANGER Influenza Virus Vaccine Estimated Onset Date: Unspecified ; Reactions: diarrhea ; Created By: STEVE ANDREA CNP; Reaction Status: Active ; Category: Drug ; Substance: Influenza Virus Vaccine ; Type: Intolerance ; Updated By: STEVE ANDREA CNP; Reviewed Date: 08/24/2015 18:42 BACK HANGER ID Screen Drug Resistant Organism : No Travel Within Last 21 Days : No Contact with someone with Ebola : No BOBBY MUNOZ RN - 08/24/2015 18:36 BACK HANGER Immunizations Immunizations Current : Yes BOBBY MUNOZ RN - 08/24/2015 18:36 BACK HANGER Source: [facility] POWERCHART Document Id: [id number] BACK HANGER!61 HANGER documented in this encounter Miscellaneous Notes Miscellaneous - Juliette Donaldson R.N. - 07/16/2016 2:18 PM CST Health Maintenance Reminder July 16, 2016 NOEMÍ LUNA [address] [facility] [phone] Dear NOEMÍ LUNA, This is a reminder that you are due for a Colonoscopy appointment: at [facility]. Please call the Clinic registration at to schedule an appointment with your primary provider. A pre-procedure physical needs to be performed prior to your procedure. Your colonoscopy willbe scheduled by your primary provider upon completion of the physical. If you had this done elsewhere, please notify the Endoscopy department [phone], to update your chart. We look forward to seeing you soon. Thank you for choosing the [facility] in [place]. Sincerely, JULIETTE DONALDSON Electronic Signature Electronically Signed By: JULIETTE DONALDSON RN On: July 16, 2016 This document has images extracted. Source: [facility] [employer] Document Id: [id number] Miscellaneous - Moraima Chase - 08/27/2015 10:19 AM CST Reminder Msg Document Contains Addenda Addendum by JULIETTE DONALDSON RN on July 16, 2016 14:18:45 BACK HANGER Third letter sent today. Addendum by MORAIMA CHASE on March 19, 2016 12:00:47 CDT second letter will be sent to patient March 2016 From: MORAIMA CHAES To: [place] Colonoscopy Pool; Sent: 08/27/2015 10:19:41 BACK HANGER Show up: 08/27/2015 10:19:00 BACK HANGER Subject: Reminder Msg Due Date/Time: 08/27/2015 10:19:00 BACK HANGER Please Remember to: Pt Due for 48 y.o. Colonoscopy Screening. Letter Will be sent to pt. aug 2015 PATIENT: ( ) Call Patient ( ) Ask Patient to ( ) ( ) Call Relative ( ) Schedule Patient ( ) ( ) Call for Associate Professor Of Communication ( ) Follow up on Results ( ) Other: PROVIDER: ( ) Call Physician ( ) Call Pharmacist ( ) Call Lab ( ) Other: Special Instructions: Comments: Source: [facility] [employer] Document Id: [id number] Electronically signed by Conversion, [facility] Completions Engineer [id number] at 02/02/2017 9:27 AM CDT Miscellaneous - Conversion, Historical Provider Ser - 08/24/2015 8:32 PM BACK HANGER Coding Summary-Paper Based CODING DATE: 09/03/2015 FINAL [facility] STATUS: * Discharged to Home or Self Care PAYOR: Medicaid ADMIT DX: M79.1 Myalgia REASON FOR VISIT DX: M79.1 Myalgia FINAL DX: PRINCIPAL: B34.9 Viral infection, unspecified SECONDARY: E11.9 Type 2 diabetes mellitus without complications E78.5 Hyperlipidemia, unspecified I10 Essential (primary) hypertension Z88.7 Allergy status to serum and vaccine status PROCEDURES DOCTOR NAME DATE NOTE: The code number assigned matches the documented diagnosis and / or procedure in the patient's chart. However, the narrative phrase printed from the coding software may appear abbreviated, or result in slightly different terminology. Coded By: KENIA VERGARA Date Saved: 09/03/2015 09:43 am Source: [facility] [employer] Document Id: [id number] Miscellaneous - Nik Cisneros, R.N. - 08/24/2015 8:20 PM CST Valuables/Belongings Valuables/Belongings Entered On: 08/24/2015 20:21 BACK HANGER Performed On: 08/24/2015 20:20 BACK HANGER by NIK CISNEROS RN Valuables/Belongings Valuables/Belongings Grid Valuables with Patient Clothes, Patient Valuables : Coat, Pants, Shirt, Shoes, Undergarments Electronic Devices : Cell phone Jewelry : None Monetary Items : Wallet Personal Devices : None NIK CISNEROS RN - 08/24/2015 20:20 BACK HANGER Home Medication Disposition : None brought in with patient NIK CISNEROS RN - 08/24/2015 20:20 BACK HANGER [facility] Document Id: [id number] BACK HANGER!10 HANGER Miscellaneous - Nik Cisneros RAugustine - 08/24/2015 6:28 PM CST Facility Charge Ticket 2.0 11.0 DX Facility Charge Ticket 2.0 11.0 DX Entered On: 08/24/2015 20:22 BACK HANGER Performed On: 08/24/2015 18:28 BACK HANGER by NIK CISNEROS RN Facility Charge Ticket 2.0 11.0 DX ED Other Charges : Standard ED Encounter TVL Level Translated RTF : Body aches TVL:3 TVL Level for Facility Charge Ticket : Level 3 Arrival Mode Calc : 1 Mode of Arrival ED : Private vehicle [facility]x Mode of Arrival Interpreted : Standard [facility] Process Management : None Order Management RTF : Laboratory Glucose POC.,08/24/15 19:05,CIERRA BARKER MD Completed Xray XR Chest 2 Views,08/24/15 19:11,ALON BENAVIDES MD Completed [facility]x Order Management : Lab tests, Xray - plain films 30 Minutes Critical Care : No Nursing Notes RTF : Triage Forms ED Triage Assessment,08/24/15 18:36,BOBBY MUNOZ RN Nursing Notes ED Primary Assessment,08/24/15 18:45,BOBBY MUNOZ ALLIANCE DIRECTOR Pain Assessment,08/24/15 20:20,NIK CISNEROS RN [facility] Nursing Assessment : Triage and 1-2 nursing assessments Lynx Disposition : Discharge Disposition RTF : discharge [facility]x Total Points with Diagnosis Control : 7 Lynx Visit Level : 51197 Level 3 Treatments Prior to Arrival : None NIK CISNEROS RN - 08/24/2015 20:21 BACK HANGER Source: [facility] [employer] Document Id: [id number] BACK HANGER!19 HANGER documented in this encounter Plan of Treatment Not on filedocumented as of this encounter Procedures Procedure Name Priority Date/Time Associated Diagnosis Comme nts GLUCOSE POCT, B Routine 08/24/2015 6:59 PM Result s for this BACK HANGER procedure are i n the results section. documented in this encounter Results (ABNORMAL) Glucose, POCT (08/24/2015 6:59 PM BACK HANGER) athologist Signature Glucose, POCT, 183 (H) 70 - 139 POWERCHART B MGDL Comment: AnalyzedBy [id number] Alexander Rosales Performed at Med Surg [id number] [facility] [address] [place], [place] [address] Specimen Anatomical Collection Method Collection Time Receive d Time (Source) Location / / Volume Laterality Blood 08/24/2015 6:59 PM 5 6:59 BACK HANGER PM BACK HANGER Cierra Barker M.D. LAB POCT ORDERABLES-MANUAL Performing Organization Address City/State/ZIP Code Phon e Number POWERCHART documented in this encounter Visit Diagnoses Not on filedocumented in this encounter Additional Health Concerns Assessment Noted Time PHQ-9 Depression Total Score: 18 02/14/2013 9:53 AM CD T documented as of this encounter
--- OUTSIDE RECORDS SUMMARY | 2022-07-29 10:52 | XMS_ITS | Encounter Summary ---
:1960 Author Organization [facility] Address [address] [place] [address] Care Team Providers Name Role Phone Unavailable Primary Care Provider Unavailable Encounter Details Date Type Department Care Team Description 05/12/2015 Hospital Encounter [facility] Piero Swann M.D. [address] [place] [phone] (Wo rk) Social History Tobacco Use [...] - - Height 185 cm (6' 0.84) 05/12/2015 9:00 AM CDT Body Mass Index - - documented in this encounter Miscellaneous Notes Miscellaneous - Rosetta Ramirez, L.P.N. - 05/21/2015 5:09 PM CDT [facility] consult From: ROSETTA RAMIREZ LPN To: KEVIN KILGORE MD; Sent: 05/21/2015 17:09:37 CDT Subject: [facility] consult DOS 04/10/15 [facility] ur[facility] sent for scanning. Source: [facility] POWERCHART Document Id: [id number] documented in this encounter Plan of Treatment Not on filedocumented as of this encounter Visit Diagnoses Not on filedocumented in this encounter Additional Health Concerns Assessment Noted Time PHQ-9 Depression Total Score: 18 02/14/2013 9:53 AM CD T documented as of this encounter
--- OUTSIDE RECORDS SUMMARY | 2022-07-29 10:52 | XMS_ITS | Encounter Summary ---
:1960 Author Organization [facility] Address [address] [place] [address] Care Team Providers Name Role Phone Unavailable Primary Care Provider Unavailable Encounter Details Date Type Department Care Team Description 01/09/2015 Hospital Encounter HX [facility] Cintia Aguirre M.D. [address] [place] [phone] (Wo rk) Social History Tobacco Use Types Packs/Day Years Used Date Smoking Tobacco: Never Assessed Sex Assigned at Date Recorded Not on file documented as of this encounter Last Filed Vital Signs Vital Sign Reading Time Taken Comments Blood Pressure 144/87 01/09/2015 6:15 PM CDT Pulse 48 01/09/2015 6:15 PM CDT Temperature - - Respiratory Rate 16 01/09/2015 6:15 PM CDT Oxygen Saturation - - Inhaled Oxygen Concentration - - Weight 132 kg (291 lb 3.6 oz) 01/09/2015 6:15 PM CDT Height 185 cm (6' 0.84) 01/09/2015 6:15 PM CDT Body Mass Index 38.6 01/09/2015 6:15 PM CDT documented in this encounter Progress Notes Cintia Cobb M.D. - 01/09/2015 9:37 PM CDT Clinic Full Note CHIEF COMPLAINT/REASON FOR VISIT f/u on gastric bypass HISTORY OF PRESENT ILLNESS Ed presents today for follow up on recent gastric bypass surgery and his other chronic medical problems. He states that today was his first full day of work and it felt good. Generally, he thinks things are going well. Blood sugars have been between 90 and 120. He is only taking the Lantus at 16 units. He reports some upper abdominal pain at times which feels like a pulled muscle. It does not occur with eating, but happens if he slouches too much. He has had nausea twice with vomiting both times. He thinks it is related to eating too fast. He overall thinks eating is going okay. He has eaten a full taco and will eat 2 cups of cereal in the morning. He is trying to eat a small amount. He denies any heart racing or skipping beats. Breathing has been okay. MEDICATIONS allopurinol 300 mg oral tablet, 150 mg, 0.5 tab(s), kidney stones, PO, Daily amLODIPine 10 mg oral tablet, 5 mg, 0.5 tab(s), high blood pressure, PO, Daily cyanocobalamin 1000 mcg/mL injectable solution, 1,000 mcg, 1 mL, vitamin B12 deficiency, Subcut., Monthly, 3 refills Flintstones Complete, 1 tab(s), Daily Lantus Solostar Pen, 16 units, diabetes, Subcut., Bedtime Metoprolol Tartrate, 12.5 mg, PO, 2xDay oxyCODONE 5 mg oral tablet, 1-2 tabs, PO, q6hr, PRN, 0 refills Senna Plus, 1 tab(s), PO, [...] Incontinence Historical No historical problems PROCEDURES/SURGICAL HISTORY Cystoscopy (12/26/2009), PSA, TOTAL SCREENING (12/26/2009), Discectomy (02/19/1989). SOCIAL HISTORY Date Time: 01/09/2015 18:15 Tobacco: Smoking Status: Never smoker Exposure: Care provider denies smoking in home Alcohol: Use: No Recreational Drugs: Use: None Type: No Results Found FAMILY HISTORY Mother ( at 72 year(s)):Positive: Diabetes mellitus; Kidney disease; Myocardial infarction Father:Positive: Congestive heart failure; Hypertension SYSTEMS REVIEW As per HPI. VITAL SIGNS T: 36.7 ??C (Core) HR: 48 RR: 16 BP: 144 / 87 HT: 185 cm WT: 132.1 kg BMI: 38.6 PHYSICAL EXAMINATION General: Alert and oriented. No acute distress. Neck: Supple. No lymphadenopathy. No carotid bruits. Cardiovascular exam: Bradycardia. Normal S1 and S2. No murmurs, rubs, or gallops. Lungs: Clear to auscultation bilaterally. Abdomen: Soft. Minimal tenderness to palpation in the epigastric region. Incisions are well healed. Extremities: No pedal edema. Chronic venous stasis changes IMPRESSION/REPORT/PLAN 1. Gastric Bypass S/P Patient is overall doing well, but I really think he needs to follow up with his surgeon. He has a lot of questions that I am not able to answer regarding what he should be expecting and experiencing.Patient is willing to follow up if we can coordinate all of his appointments on the same day. We will work to do this. 2. DM2 Blood sugars are doing very well. I think we are getting to the point that we could consider transitioning to oral medications, but again, I would appreciate the guidance of his diver helper. We will arrange this appointment. 3. Hypertension HTN NOS Blood pressure is a little higher today. We have stopped a lot of his antihypertensives. Today was his first day back to work. We will plan on having him return in 1 week for a nurse visit blood pressure check. 4. Flutter Atrial NOS Heart rate tends to be bradycardic. Patient is asymptomatic. Will need cardiac follow up. 5. Insufficiency Renal NOS Creatinine had greatly improved after making medication changes. He has follow up with nephrology at the end of January. FOOTNOTES [1]Clinic Full Note; CINTIA KILGORE MD 12/08/2014 19:51 CDT Electronically Signed By: CINTIA KILGORE MD On: 01/10/2015 09:44 PM Source: [facility] POWERCHART Document Id: [id number] documented in this encounter Miscellaneous Notes Miscellaneous - Cintia Cobb M.D. - 01/09/2015 6:56 PM CDT Ambulatory Patient Summary [address] [place] [id number] Visit Information Name: LAZ LUNA [facility] Number: [id number] Current Date: 01/09/2015 18:56:56 Physicians Attending Provider: CINTIA KILGORE MD Primary Care Provider: CINTIA KILGORE MD LAZ LUNA has been given the following list [...] 1 Tablet(s), Oral, two times a day insulin glargine (Lantus Solostar Pen) 16 units, Subcutaneous, once a day (at bedtime) diabetes metoprolol (Metoprolol Tartrate) 12.5 mg, Oral, two times a day multivitamin with minerals (Flintstones Complete) 1 Tablet(s), once a day oxyCODONE (oxyCODONE 5 mg oral tablet) 1-2 tabs, Oral, every 6 hours as needed for pain simvastatin (simvastatin 40 mg oral tablet) 1 Tablet(s), Oral, once a day (at bedtime) high cholesterol Stop Taking the Following Medications: Medication list as of 01-09-15 18:56 Attention: If you have any medications at home that are not on this list, DO NOT take them until youcontact your provider for clarification. Give a copy of your medication list to your primary care provider. Update your medication list any time medications or doses are changed and carry your medication list at all times in case of emergency. Electronically Signed By: CINTIA KILGORE MD Signed On:09-JAN-2015 18:55:13 Your Allergies & Intolerances Substance Reaction Symptoms [...] Your Upcoming Appointments Date Time Location Provider 01/16/2015 13:15 [facility] Urology Gonzalez MENDEZ, Rayna Posadas Attention: Contact your local Clinic if further appointment detail needed. Your Goals/Additional instructions: Future Appointment: nurse visit BP check 1 week Lab: _ Radiology: _ Need Prior Auth: _ NO Prior Auth: _ Consult: _ Release of MR_ PHI_ Source: [facility] POWERCHART Document Id: [id number] Miscellaneous - Cintia Cobb M.D. - 01/09/2015 6:56 PM CDT Ambulatory Discharge Medication List [address] [place], [place] [id number] Visit Information Name: LAZ LUNA [facility] Number: [id number] Visit Date: 01/09/2015 18:56:55 Attending Provider: CINTIA KILGORE MD Primary Care Provider: CINTIA KILGORE MD LAZ LUNA has been given the following list [...] 1 Tablet(s), Oral, two times a day insulin glargine (Lantus Solostar Pen) 16 units, Subcutaneous, once a day (at bedtime) diabetes metoprolol (Metoprolol Tartrate) 12.5 mg, Oral, two times a day multivitamin with minerals (Flintstones Complete) 1 Tablet(s), once a day oxyCODONE (oxyCODONE 5 mg oral tablet) 1-2 tabs, Oral, every 6 hours as needed for pain simvastatin (simvastatin 40 mg oral tablet) 1 Tablet(s), Oral, once a day (at bedtime) high cholesterol Stop Taking the Following Medications: Medication list as of 01-09-15 18:56 Attention: If you have any medications at home that are not on this list, DO NOT take them until youcontact your provider for clarification. Give a copy of your medication list to your primary care provider. Update your medication list any time medications or doses are changed and carry your medication list at all times in case of emergency. Electronically Signed By: CINTIA KILGORE MD Signed On:09-JAN-2015 18:55:13 Additional Information: Source: [facility] [employer]OWERCHART Document Id: [id number] Miscellaneous - Rosetta Ramirez L.P.N. - 01/09/2015 6:15 PM CDT Adult Furniture Repairer Intake/History Adult Furniture Repairer Intake/History Entered On: 01/09/2015 18:23 CDT Performed On: 01/09/2015 18:15 CDT by ROSETTA RAMIREZ LPN Intake Chief Complaint : f/u on gastric bypass Ambulatory Intake Additional Information : Had a nurse visit last week and pulse was low. An EKG wasordered and was told it was ok. Temperature Core : 36.7 DegC(Converted to: 98.1 DegF) Peripheral Pulse Rate : 48 /min (<LLOW) Respiratory Rate : 16 /min Heart Rhythm : Irregular Systolic Blood Pressure : 144 mmHg (HI) Diastolic Blood Pressure : 87 mmHg NIBP Mean : 106 mmHg BP Location : Right upper extremity Blood Pressure Cuff Size : Large Height : 185 cm(Converted to: 6 ft 1 inch(es), 73 inch(es)) Actual Weight : 132.1 kg(Converted to: 291 lb 4 oz) Weight Source : Standing scale Dosing Weight Clinic : 132.1 kg Clinic BSA : 2.61 Body Mass Index : 38.6 kg/m2 ROSETTA RAMIREZ LPN - 01/09/2015 18:15 CDT General Info Information Given By : Patient Languages : Uzbek Is Patient Female and 13-50 no hysterectomy : No ROSETTA RAMIREZ LPN - 01/09/2015 18:15 CDT Subjective Pain Symptoms : No ROSETTA RAMIREZ LPN - 01/09/2015 18:15 CDT Dependent Habits Tobacco Use/Currently Using : No Exposure to Tobacco Smoke : Care provider denies smoking in home Smoking Status : Never smoker ROSETTA RAMIREZ LPN - 01/09/2015 18:15 CDT Tobacco Use Grid Last Use : never ROSETTA RAMIREZ LPN - 01/09/2015 18:15 CDT Alcohol Use : No ROSETTA RAMIREZ LPN - 01/09/2015 18:15 CDT Caffeine Use Grid Caffeine Use : Current Type : Coffee, Soft drinks Frequency : Weekly Amount : soda- weekly; coffee- 1x/week ROSETTA RAMIREZ LPN - 01/09/2015 18:15 CDT Recreational Drug Use Grid Drug Use : None ROSETTA RAMIREZ LPN - 01/09/2015 18:15 CDT ID Screen Drug Resistant Organism : No Travel Within Last 21 Days : No Contact with someone with Ebola : No ROSTETA RAMIREZ LPN - 01/09/2015 18:15 CDT Source: [employer] Document Id: [id number] CDT!46 documented in this encounter Plan of Treatment Not on filedocumented as of this encounter Visit Diagnoses Not on filedocumented in this encounter Additional Health Concerns Assessment Noted Time PHQ-9 Depression Total Score: 18 02/14/2013 9:53 AM CD T documented as of this encounter
--- OUTSIDE RECORDS SUMMARY | 2022-07-29 10:52 | XMS_ITS | Encounter Summary ---
:1960 Author Organization [facility] Address [address] [place] [address] Care Team Providers Name Role Phone Unavailable Primary Care Provider Unavailable Encounter Details Date Type Department Care Team Description 01/16/2015 Hospital Encounter HX [facility] Song Cintia Jorgensen M.D. [address] [place] [phone] (Wo rk) Social History Tobacco Use Types Packs/Day Years Used Date Smoking Tobacco: Never Assessed Sex Assigned at Date Recorded Not on file documented as of this encounter Last Filed Vital Signs Vital Sign Reading Time Taken Comments Blood Pressure 149/87 01/16/2015 5:09 PM CDT Pulse - - Temperature - - Respiratory Rate - - Oxygen Saturation - - Inhaled Oxygen Concentration - - Weight 130 kg (286 lb 6 oz) 01/16/2015 4:26 PM CDT Height 185 cm (6' 0.84) 01/16/2015 5:09 PM CDT Body Mass Index 37.95 01/16/2015 4:26 PM CDT documented in this encounter Miscellaneous Notes Miscellaneous - Conversion, Historical Provider Ser - 02/06/2015 10:11 AM CDT Med Management Document Contains Addenda Addendum by CINTIA KILGORE MD on 06 February 2015 16:03:37 CDT From: CINTIA KILGORE MD Sent: 02/06/2015 16:03:37 CDT Subject: RE:Med Management Approved Order:metoprolol (Metoprolol Tartrate 25 mg oral tablet) 0.5 tab(s) PO 2xDay Qty: 90 tab(s) Duration: 90 day(s) Refills: 1 Substitutions Allowed Route To Pharmacy [facility][id number] Signed by CINTIA KILGORE MD 02/06/2015 16:03:30 From: OLIVIA BECERRA V To: CINTIA KILGORE MD; OLIVIA BECERRA V; Sent: 02/06/2015 10:11:39 CDT Subject: Med Management On hold pending signature Order:metoprolol (Metoprolol Tartrate 25 mg oral tablet) 0.5 tab(s) PO 2xDay Qty: 90 tab(s) Duration: 90 day(s) Refills: 1 Substitutions Allowed Route To [facility][id number] Documented Discontinue:metoprolol (Metoprolol Tartrate) Signed by OLIVIA BECERRA V 02/06/2015 10:09:27 Pt seen 01/09. BP was 144/87. Had nurse BP visit 01/16 w/ BP 158/82 & 149/87. Unclear if dosing forthis is to be changed. Had been 25mg BID prior to surgery. Now 12.5 mg BID. Please advise Source: [facility] POWERCHART Document Id: [id number] Miscellaneous - Shawnee Haji, L.P.N. - 01/16/2015 5:09 PM CDT Ambulatory Vitals Height Weight Ambulatory Vitals Height Weight Entered On: 01/16/2015 17:09 CDT Performed On: 01/16/2015 17:09 CDT by SHAWNEE HAJI MINE UTILITY OPERATOR Vitals/Ht/Wt Systolic Blood Pressure : 149 mmHg (HI) Diastolic Blood Pressure : 87 mmHg NIBP Mean : 108 mmHg BP Location : Right upper extremity Blood Pressure Cuff Size : Large Height : 185 cm(Converted to: 6 ft 1 inch(es), 73 inch(es)) SHAWNEE HAJI LPN - 01/16/2015 17:09 CDT Source: [facility] Document Id: [id number] CDT!8 Miscellaneous - Shawnee Haji LPiliP.N. - 01/16/2015 4:26 PM CDT Ambulatory Vitals Height Weight Ambulatory Vitals Height Weight Entered On: 01/16/2015 16:26 CDT Performed On: 01/16/2015 16:26 CDT by SHAWNEE HAJI LPN Vitals/Ht/Wt Systolic Blood Pressure : 158 mmHg (HI) Diastolic Blood Pressure : 82 mmHg NIBP Mean : 107 mmHg BP Location : Left upper extremity Blood Pressure Cuff Size : Large SHAWNEE HAJI LPN - 01/16/2015 17:09 CDT Height : 185 cm(Converted to: 6 ft 1 inch(es), 73 inch(es)) Actual Weight : 129.9 kg(Converted to: 286 lb 6 oz) Weight Source : Standing scale Dosing Weight Clinic : 129.9 kg Clinic BSA : 2.58 Body Mass Index : 37.95 kg/m2 SHAWNEE HAJI LPN - 01/16/2015 16:26 CDT Source: [facility] Document Id: [id number] CDT!7 documented in this encounter Plan of Treatment Not on filedocumented as of this encounter Visit Diagnoses Not on filedocumented in this encounter Additional Health Concerns Assessment Noted Time PHQ-9 Depression Total Score: 18 02/14/2013 9:53 AM CD T documented as of this encounter
--- OUTSIDE RECORDS SUMMARY | 2022-07-29 10:53 | XMS_ITS | Encounter Summary ---
:1960 Author Organization [facility] Address [address] [place] [address] Care Team Providers Name Role Phone Unavailable Primary Care Provider Unavailable Encounter Details Date Type Department Care Team Description 12/08/2014 Hospital Encounter HX [facility] [place] Kevin Aguirre M.D. [address] [place] [phone] (Wo rk) Social History Tobacco Use Types Packs/Day Years Used Date Smoking Tobacco: Never Assessed Sex Assigned at Date Recorded Not on file documented as of this encounter Last Filed Vital Signs Vital Sign Reading Time Taken Comments Blood Pressure 114/65 12/08/2014 11:56 AM CDT Pulse 50 12/08/2014 11:56 AM CDT Temperature - - Respiratory Rate 16 12/08/2014 11:56 AM CDT Oxygen Saturation - - Inhaled Oxygen Concentration - - Weight 136 kg (300 lb 7.8 oz) 12/08/2014 11:56 AM CDT Height 185 cm (6' 0.84) 12/08/2014 11:56 AM CDT Body Mass Index 39.82 12/08/2014 11:56 AM CDT documented in this encounter Progress Notes Kevin Cobb M.D. - 12/08/2014 7:51 PM CDT Clinic Full Note CHIEF COMPLAINT/REASON FOR VISIT Post op HISTORY OF PRESENT ILLNESS Ed presents today for follow up of recent gastric bypass surgery on November 21. Overall, he feels like things are going well. He eats 3-6 times a day. Food items include mashed potatoes, pureed meats,squash, Malt O Meal, oatmeal and eggs. He has minor abdominal pain in the center of his abdomen. Stools have been soft and more frequent about 3-4 times a day without blood. Multiple medications were discontinued including metformin and Victoza. He is still on Lantus, but at 16 units a day. Blood sugars have been about 150-180. He is already down about 17 kg since we last saw him. His hips and knees are feeling better with only occasional pain. He has had pain over the left lateral cadena since surgery which he thinks may have been related to positioning during surgery. Right shoulder continues to bepainful. MEDICATIONS allopurinol 300 mg oral tablet, 300 mg, 1 tab(s), PO, Daily, 1 refills allopurinol 300 mg oral tablet, 300 mg, 1 tab(s), kidney stones, PO, Daily amLODIPine 10 mg oral tablet, 10 mg, 1 tab(s), hypertension, PO, Daily, 11 refills amLODIPine 10 mg oral tablet, 10 mg, 1 tab(s), high blood pressure, PO, Daily Cialis 20 mg oral tablet, 1 tab(s), PO, Daily, PRN cyanocobalamin 1000 mcg/mL injectable solution, 1,000 mcg, 1 mL, Subcut., Monthly Dok Plus, 2 tab(s), PO, Daily Flintstones Complete, 1 tab(s), Daily hydrochlorothiazide, 25 mg, high blood pressure, PO, Daily Lantus Solostar Pen, 16 units, diabetes, Subcut., Bedtime lisinopril 40 mg oral tablet, 40 mg, 1 tab(s), high blood pressure, PO, Daily Metoprolol Tartrate, 12.5 mg, PO, 2xDay omeprazole 20 mg oral delayed release capsule, 20 mg, 1 cap(s), PO, Daily, 1 refills oxyCODONE 5 mg oral tablet, 1-2 tabs, PO, q6hr, PRN, 0 refills Senna Plus, 1 tab(s), PO, 2xDay simvastatin 40 mg oral tablet, 40 mg, 1 tab(s), high cholesterol, PO, Bedtime, 2 refills simvastatin 40 mg oral tablet, 40 mg, 1 tab(s), high cholesterol, PO, Bedtime Tums 500, 2 tab(s), PO, 2xDay ALLERGIES Cipro Influenza Virus Vaccine (diarrhea) PAST MEDICAL HISTORY Chronic BPH without urinary obstruction DM II (or NOS), uncontrolled Eczema Erectile dysfunction* Flutter Atrial NOS Fracture Closed Radial head Hyperlipidemia Hypertension essential, NOS Kidney stone Morbid Obesity (BMI > 40) (V85.4) Obesity NOS Optic disc cupping Pyelonephritis Tinea cruris. Tinea pedis* Unspecified Adjustment Reaction Urge Incontinence Historical No historical problems PROCEDURES/SURGICAL HISTORY Cystoscopy (12/26/2009), PSA, TOTAL SCREENING (12/26/2009), Discectomy (02/19/1989). SOCIAL HISTORY Date Time: 12/08/2014 11:56 Tobacco: Smoking Status: Never smoker Exposure: Care provider denies smoking in home Alcohol: Use: No Recreational Drugs: Use: None Type: No Results Found FAMILY HISTORY Mother ( at 72 year(s)):Positive: Diabetes mellitus; Kidney disease; Myocardial infarction Father:Positive: Congestive heart failure; Hypertension SYSTEMS REVIEW As per HPI. He gets frequent headaches which he describes as a dull ache which occur throughout theday, but they are better than before. He does not take any medications for them. Not peeing as much.No weakness or tingling. VITAL SIGNS T: 35.2 ??C (Core) HR: 50 RR: 16 BP: 114 / 65 SpO2: 96% HT: 185 cm WT: 136.3 kg BMI: 39.82 PHYSICAL EXAMINATION General: Alert and oriented. No acute distress. Neck: Supple. No lymphadenopathy. No carotid bruits. Cardiovascular exam: Regular rate and rhythm. Normal S1 and S2. No murmurs, rubs, or gallops. Lungs: Clear to auscultation bilaterally. Extremities: No pedal edema. Chronic venous stasis changes. LAB RESULTS Sodium Lvl: 132.1 mmol/L Low (12/08/14) Potassium Lvl: 4.8 mmol/L (12/08/14) Chloride: 97 mmol/L Low (12/08/14) CO2: 27.2 mmol/L (12/08/14) Glucose Lvl: 181 mg/dL High (12/08/14) Creatinine: 1.66 mg/dL High (12/08/14) Calcium Lvl: 10.0 mg/dL (12/08/14) BUN: 44 mg/dL High (12/08/14) EGFR (MDRD): 43 mL/min/1.73m2 Low (12/08/14) EGFR (MDRD): 52 mL/min/1.73m2 Low (12/08/14) AGAP: 13 mmol/L (12/08/14) IMPRESSION/REPORT/PLAN 1. Gastric Bypass S/P Patient is doing well since his surgery. He is losing weight and tolerating his diet. Labs likely show some dehydration with elevated BUN/Creatinine. Will encourage increased fluids. Will continue to closely follow to changes meds as needed with weight loss. Given script for Vitamin B12 injections. Ordered: OV Est Pt Level 4 - 86938 - 25 min 2. DM2 Patient off of a couple medications. Blood sugars are a little high, but with anticipated weight loss, I do not want to be too aggressive with increasing his insulin. Goal is ultimately to get off of insulin and perhaps all diabetic meds altogether. Ordered: OV Est Pt Level 4 - 80756 - 25 min 3. Insufficiency Renal NOS Creatinine up a little. Was 1.1 on discharge. Some concern for dehydration. Will decrease lisinopril to 20mg daily and recheck. Ordered: OV Est Pt Level 4 - 97891 - 25 min 4. Hypertension HTN NOS Blood pressure is very good today. We are going to cut back on the lisinopril. Lasix has already been stopped. Ordered: OV Est Pt Level 4 - [id number] - 25 min 5. Dysfunction Erectile (ED) NOS Patient would like to be referred to urology to further discuss. This will be placed. Electronically Signed By: KEVIN KILGORE MD On: 12/10/2014 07:57 PM Source: [facility] POWERCHART Document Id: [id number] documented in this encounter Miscellaneous Notes Miscellaneous - Shirlene Dominguez R.N. - 12/11/2014 2:31 PM CDT vit D From: SHIRLENE DOMINGUEZ RN Sent: 12/11/2014 14:31:34 CDT Subject: vit D Pharmacy called about pt wanting Vit D. Provider doesn't recall discussing this with pt but if he chooses, he could take OTC 1000IU Vit D daily. Pharmacy will let him know. Source: [facility] POWERCHART Document Id: [id number] Electronically signed by Dayami, [facility] Data Analyst [id number] at 02/01/2017 3:36 PM CDT Miscellaneous - Kevin Cobb M.D. - 12/10/2014 8:00 PM CDT referral Document Contains Addenda Addendum by NICHELLE NATHAN on 19 December 2014 12:57:31 CDT From: NICHELLE NATHAN To: NICHELLE NATHAN; Sent: 12/19/2014 12:57:31 CDT Subject: RE: referral tried calling patient, no answer. Addendum by KEVIN KILGORE MD on 13 December 2014 13:41:43 CDT From: KEVIN KILGORE MD To: NICHELLE NATHAN; Sent: 12/13/2014 13:41:43 CDT Subject: RE: referral Thanks. Addendum by NICHELLE NATHAN on 13 December 2014 13:35:29 CDT From: NICHELLE NATHAN To: NICHELLE NATHAN; Sent: 12/13/2014 13:35:29 CDT Subject: RE: referral Tried calling patient, no answer. Addendum by NICHELLE NATHAN on 13 December 2014 13:24:22 CDT From: NICHELLE NATHAN To: KEVIN KILGORE MD; Sent: 12/13/2014 13:24:22 CDT Subject: RE: referral Patient is scheduled for January 16 at 1:15pm with Dr. Rayna Roth. From: KEVIN KILGORE MD To: NICHELLE NATHAN; Sent: 12/10/2014 20:00:36 CDT Subject: referral Referral Request Date: 12/10/2014_ Provider: Kevin Kilgore [facility] Type of Referral/Department: Urology- female Specific Clinical Question: Erectile dysfunction Pertinent History: _ Best Phone Number: _ Appointment Days to Avoid: Best Time of day: Date/Time of appointment made: Sign off: 3 Source: [facility] POWERCHART Document Id: [id number] Electronically signed by Dayami [facility] Data Analyst [id number] at 02/01/2017 3:36 PM CDT Miscellaneous - Kevin Cobb M.D. - 12/10/2014 7:58 PM CDT Lab results Document Contains Addenda Addendum by JUDITH PATE LPN on 11 December 2014 13:24:58 CDT pt and his notified. Judith Addendum by JESSIKA TORRES on 11 December 2014 09:03:38 CDT no answer. From: KEVIN KILGORE MD To: [place] [facility] Nurse [place]; Sent: 12/10/2014 19:58:24 CDT Subject: Lab results Please call patient and have him decrease his lisinopril to 20mg daily (half of his current pill) due to kidney function being a little worse. He should also try to drink more fluids throughout the dayas I think he is a little dehydrated. We should see him back for labs in 1-2 weeks. Order will be placed. Source: [facility] [employer] Document Id: [id number] Electronically signed by Conversion, [facility] Data Analyst [id number] at 02/01/2017 3:36 PM CDT Miscellaneous - Shirlene Dominguez R.N. - 12/08/2014 3:32 PM CDT B12 Document Contains Addenda Addendum by SORIN VARGAS RN on 11 December 2014 09:04:15 CDT Submitted: Order:Rx Syringes Supply MISC Once 3 mg syringes with 5/8 25 gauge needle. Qty: 12 each Refills: 0 Substitutions Allowed Route To Pharmacy - [facility] #[id number] Signed by SORIN VARGAS RN From: SHIRLENE DOMINGUEZ RN To: SHIRLENE DOMINGUEZ RN; Sent: 12/08/2014 15:32:47 CDT Subject: B12 Tried to call pt, need to ask if he is going to do B12 shots himself, if so, needs syringes - per pharmacy 3ml syringe with 5/8 in needle 25 guage, needs 12. No answering machine, unable to leave message. Source: [facility] Cell[employer]ape Document Id: [id number] Electronically signed by Conversion, [facility] Data Analyst [id number] at 02/01/2017 3:36 PM CDT Miscellaneous - Kevin Cobb M.D. - 12/08/2014 1:13 PM CDT Ambulatory Patient Summary [address] [place] [id number] Visit Information Name: NOEMÍ LUNA [facility] Number: [id number] Current Date: 12/08/2014 13:13:16 Physicians Attending Provider: KEVIN KILGORE MD Primary Care Provider: KEVIN KILGORE MD LUNA, ED J has been given the following list [...] stones amLODIPine (amLODIPine 10 mg oral tablet) 1 Tablet(s), Oral, once a day high blood pressure This is a CHANGE calcium carbonate (Tums 500) 2 Tablet(s), Oral, two times a day cyanocobalamin (cyanocobalamin 1000 mcg/mL injectable solution) 1 Milliliter, Subcutaneous, once a month vitamin B12 deficiency Routed to [address] [address] docusate-senna (Senna Plus) 1 Tablet(s), Oral, two times a day This is a CHANGE hydrochlorothiazide (hydrochlorothiazide) 25 mg, Oral, once a day high blood pressure insulin glargine (Lantus Solostar Pen) 16 units, Subcutaneous, once a day (at bedtime) diabetes lisinopril (lisinopril 40 mg oral tablet) 1 Tablet(s), Oral, once a day high blood pressure metoprolol (Metoprolol Tartrate) 12.5 mg, Oral, two times a day multivitamin with minerals (Flintstones Complete) 1 Tablet(s), once a day oxyCODONE (oxyCODONE 5 mg oral tablet) 1-2 tabs, Oral, every 6 hours as needed for pain simvastatin (simvastatin 40 mg oral tablet) 1 Tablet(s), Oral, once a day (at bedtime) high cholesterol Stop Taking the Following Medications: Medication list as of 12-08-14 13:13 Attention: If you have any medications at [...] Electronically Signed By: KEVIN KILGORE MD Signed On:08-DEC-2014 13:12:26 Your Allergies & Intolerances Substance Reaction Symptoms [...] detail needed. Your Goals/Additional instructions: Future Appointment: Yady Song/Dianelys surgery, 1 month, 30 min Lab: _ Radiology: _ Need Prior Auth: _ NO Prior Auth: _ Consult: _ Release of MR_ PHI_ Source: [facility] POWERCHART Document Id: [id number] Miscellaneous - Kevin Cobb M.D. - 12/08/2014 1:13 PM CDT Ambulatory Discharge Medication List [address] [id number] Visit Information Name: CARLYLE NOEMÍ Fernandez [facility] Number: [id number] Visit Date: 12/08/2014 13:13:15 Attending Provider: KEVIN KILGORE MD Primary Care [...] stones amLODIPine (amLODIPine 10 mg oral tablet) 1 Tablet(s), Oral, once a day high blood pressure This is a CHANGE calcium carbonate (Tums 500) 2 Tablet(s), Oral, two times a day cyanocobalamin (cyanocobalamin 1000 mcg/mL injectable solution) 1 Milliliter, Subcutaneous, once a month vitamin B12 deficiency Routed to [address] [address] docusate-senna (Senna Plus) 1 Tablet(s), Oral, two times a day This is a CHANGE hydrochlorothiazide (hydrochlorothiazide) 25 mg, Oral, once a day high blood pressure insulin glargine (Lantus Solostar Pen) 16 units, Subcutaneous, once a day (at bedtime) diabetes lisinopril (lisinopril 40 mg oral tablet) 1 Tablet(s), Oral, once a day high blood pressure metoprolol (Metoprolol Tartrate) 12.5 mg, Oral, two times a day multivitamin with minerals (Flintstones Complete) 1 Tablet(s), once a day oxyCODONE (oxyCODONE 5 mg oral tablet) 1-2 tabs, Oral, every 6 hours as needed for pain simvastatin (simvastatin 40 mg oral tablet) 1 Tablet(s), Oral, once a day (at bedtime) high cholesterol Stop Taking the Following Medications: Medication list as of 12-08-14 13:13 Attention: If you have any medications at [...] Electronically Signed By: KEVIN KILGORE MD Signed On:08-DEC-2014 13:12:26 Additional Information: Source: [facility] POWERCHART Document Id: [id number] Miscellaneous - Marco Dueñas LPiliPPiliN. - 12/08/2014 11:56 AM CDT Adult Cloth Laminating Supervisor Intake/History Adult Cloth Laminating Supervisor Intake/History Entered On: 12/08/2014 12:02 CDT Performed On: 12/08/2014 11:56 CDT by MARCO DUEÑAS LPN Intake Chief Complaint : Post op Onset of Symptoms : Still gets headaches Temperature Core : 35.2 DegC(Converted to: 95.4 DegF) (LOW) Peripheral Pulse Rate : 50 /min (LOW) Respiratory Rate : 16 /min Heart Rhythm : Regular Systolic Blood Pressure : 114 mmHg Diastolic Blood Pressure : 65 mmHg NIBP Mean : 81 mmHg BP Location : Left upper extremity Blood Pressure Cuff Size : Large SpO2 : 96 % Oxygen Therapy : Room air Height : 185 cm(Converted to: 6 ft 1 inch(es), 73 inch(es)) Actual Weight : 136.3 kg(Converted to: 300 lb 8 oz) Weight Source : Standing scale Dosing Weight Clinic : 136.3 kg Clinic BSA : 2.65 Body Mass Index : 39.82 kg/m2 MARCO DUEÑAS LPN - 12/08/2014 11:56 CDT General Info Information Given By : Patient Preferred Communication Mode : Verbal Languages : Italian Is Patient Female and 13-50 no hysterectomy : No MARCO DUEÑAS LPN - 12/08/2014 11:56 CDT Subjective Pain Symptoms : No MARCO DUEÑAS LPN - 12/08/2014 11:56 CDT Dependent Habits Tobacco Use/Currently Using : No Tobacco Use/Last 12 months : No Tobacco Use/Advised to Quit : No Exposure to Tobacco Smoke : Care provider denies smoking in home Smoking Status : Never smoker MARCO DUEÑAS LPN - 12/08/2014 11:56 CDT Tobacco Use Grid Last Use : never MARCO DUEÑAS LPN - 12/08/2014 11:56 CDT Alcohol Use : No MARCO DUEÑAS [facility] - 12/08/2014 11:56 CDT Caffeine Use Grid Caffeine Use : Current Type : Coffee, Soft drinks Frequency : Weekly Amount : soda- weekly; coffee- 1x/week MARCO DUEÑAS [facility] - 12/08/2014 11:56 CDT Recreational Drug Use Grid Drug Use : None MARCO DUEÑAS [facility] - 12/08/2014 11:56 CDT ID Screen Drug Resistant Organism : No Travel Within Last 21 Days : No Contact with someone with Ebola : No MARCO DUEÑAS [facility] - 12/08/2014 11:56 CDT Source: [facility] [employer]CHART Document Id: [id number] CDT!51 documented in this encounter Plan of Treatment Not on filedocumented as of this encounter Procedures Procedure Name Priority Date/Time Associated Diagnosis Comme nts BASIC METABOLIC Routine 12/08/2014 1:10 PM Result s for this PANEL, S/P CDT procedure are i n the results section. documented in this encounter Results (ABNORMAL) BMP (Basic Metabolic Panel) (12/08/2014 1:10 PM CDT) [facility] gist Method Time Signature Anion Gap 13 10 - 20 POWERCHART MMOLL BUN (Blood Urea 44 (H) 7 - 18 POWERCHART Nitrogen), S MGDL Chloride, S 97 (L) 98 - 107 POWERCHART [facility] CO2 Total 27.2 23.0 - POWERCHART 29.0 MMOLL Creatinine 1.66 (H) 0.60 - POWERCHART 1.30 MGDL Glucose 181 (H) 70 - 139 POWERCHART MGDL Calcium, Total, 10.0 8.6 - 10.0 POWERCHART S MGDL Sodium, S 132.1 (L) 135.0 - POWERCHART 145.0 MMOLL Potassium, S 4.8 3.6 - 4.8 POWERCHART MMOLL HXeGFR (MDRD) 43 (L) >=60 POWERCHART [id number] eGFR 52 (L) >=60 POWERCHART Black/ [id number] German Specimen (Source) Anatomical Collection Method Collection Time Re ceived Time Location / / Volume Laterality Blood 12/08/2014 1:10 PM CDT Kevin Copeland M.D. LAB BLOOD ADD-ON Performing Organization Address City/State/ZIP Code Phon e Number POWERCHART documented in this encounter Visit Diagnoses Not on filedocumented in this encounter Additional Health Concerns Assessment Noted Time PHQ-9 Depression Total Score: 18 02/14/2013 9:53 AM CD T documented as of this encounter
--- OUTSIDE RECORDS SUMMARY | 2022-07-29 10:53 | XMS_ITS | Encounter Summary ---
:1960 Author Organization [facility] Address [address] [place] [address] Care Team Providers Name Role Phone Unavailable Primary Care Provider Unavailable Encounter Details Date Type Department Care Team Description 11/04/2014 Hospital Encounter HX [facility] Cintia Cobb M.D. [address] [place] [phone] (Wo rk) Social History Tobacco Use [...] - - Height 185 cm (6' 0.84) 11/04/2014 1:27 PM VALUE ANALYST Body Mass Index - - documented in this encounter Miscellaneous Notes Miscellaneous - Cintia Cobb M.D. - 11/17/2014 3:00 PM CDT Normal Results Letter 17 November 2014 ED JEREMY [address] [place] [address] [address] [facility] [id number] Dear LAZ LUNA, Your recent creatinine was 1.43. This was up a little from your last test and likely related to yourwater pills. Good luck with your surgery. Please follow up with us as we discussed during your visitor sooner if you have any concerns. If you have questions or concerns, please do not hesitate to call our office. Result Name Current Result Previous Result Normal Range Creatinine (mg/dL) (H) 1.43 11/04/2014 (H) 1.34 10/03/2014 0.60 - 1.30 EGFR (MDRD) (mL/min/1.73m2) (L) 51 11/04/2014 (L) 55 10/03/2014 >=60 - EGFR (MDRD) (mL/min/1.73m2) >60 11/04/2014 >60 10/03/2014 >=60 - Sincerely, CINTIA KILGORE [address] [address] Electronic Signature Electronically Signed By: CINTIA KILGORE MD On: 17 November 2014 This document has images extracted. Source: [employer] Document Id: [id number] Electronically signed by Conversion, [facility] Weatherization Installer [id number] at 02/02/2017 1:37 AM CDT Miscellaneous - Conversion, Historical Provider Ser - 11/04/2014 11:59 PM VALUE ANALYST Coding Summary-Paper Based CODING DATE: 11/08/2014 FINAL [facility] STATUS: * Discharged to Home or Self Care PAYOR: Medicaid ADMIT DX: 403.90 Hypertensive Chronic Kidney Disease, Unspecified, with Chronic Kidney Disease Stage I Through Stage IV, or Unspecified REASON FOR VISIT DX: 403.90 Hypertensive Chronic Kidney Disease, Unspecified, with Chronic Kidney Disease Stage I Through Stage IV, or Unspecified FINAL DX: PRINCIPAL: 403.90 Hypertensive Chronic Kidney Disease, Unspecified, with Chronic Kidney Disease Stage I Through Stage IV, or Unspecified SECONDARY: 593.9 Unspecified Disorder of Kidney and Ureter PROCEDURES DOCTOR NAME DATE NOTE: The code number assigned matches the documented diagnosis and / or procedure in the patient's chart. However, the narrative phrase printed from the coding software may appear abbreviated, or result in slightly different terminology. Coded By: CLARKE BLISS Date Saved: 11/08/2014 02:17 pm Source: [employer] Document Id: [id number] documented in this encounter Plan of Treatment Not on filedocumented as of this encounter Procedures Procedure Name Priority Date/Time Associated Comments Diagnosis CREATININE WITH Routine 11/04/2014 1:40 PM Result s for this EGFR, S/P VALUE ANALYST procedure are i n the results section. documented in this encounter Results (ABNORMAL) Creatinine with eGFR (11/04/2014 1:40 PM VALUE ANALYST) [facility] Time Signature Creatinine 1.43 (H) 0.60 - POWERCHART 1.30 MGDL HXeGFR (MDRD) 51 (L) >=60 POWERCHART [id number] eGFR >60 >=60 POWERCHART Black/ [id number] Ghanaian Specimen (Source) Anatomical Collection Method Collection Time Re ceived Time Location / / Volume Laterality Blood 11/04/2014 1:40 PM VALUE ANALYST Cintia Copeland M.D. LAB BLOOD ADD-ON Performing Organization Address City/State/ZIP Code Phon e Number POWERCHART documented in this encounter Visit Diagnoses Not on filedocumented in this encounter Additional Health Concerns Assessment Noted Time PHQ-9 Depression Total Score: 18 02/14/2013 9:53 AM CD T documented as of this encounter
--- OUTSIDE RECORDS SUMMARY | 2022-07-29 10:53 | XMS_ITS | Encounter Summary ---
:1960 Author Organization [facility] Address [address] [place] [address] Care Team Providers Name Role Phone Unavailable Primary Care Provider Unavailable Encounter Details Date Type Department Care Team Description 01/04/2015 Hospital Encounter HX [facility] Cintia lindquist M.D. [address] [place] [phone] (Wo rk) Social History Tobacco Use Types Packs/Day Years Used Date Smoking Tobacco: Never Assessed Sex Assigned at Date Recorded Not on file documented as of this encounter Last Filed Vital Signs Vital Sign Reading Time Taken Comments Blood Pressure 124/66 01/04/2015 10:41 AM CDT Pulse - - Temperature - - Respiratory Rate - - Oxygen Saturation - - Inhaled Oxygen Concentration - - Weight 132 kg (290 lb 2 oz) 01/04/2015 10:41 AM CDT Height 185 cm (6' 0.84) 01/04/2015 10:41 AM CDT Body Mass Index 38.45 01/04/2015 10:41 AM CDT documented in this encounter Miscellaneous Notes Miscellaneous - Anne Marie Tuttle, L.P.N. - 01/04/2015 10:41 AM CDT Ambulatory Vitals Height Weight Ambulatory Vitals Height Weight Entered On: 01/04/2015 10:52 CDT Performed On: 01/04/2015 10:41 CDT by ANNE MARIE TUTTLE THERAPIST PHYS, RT Vitals/Ht/Wt Systolic Blood Pressure : 124 mmHg Diastolic Blood Pressure : 66 mmHg NIBP Mean : 85 mmHg BP Location : Left upper extremity Blood Pressure Cuff Size : Large Height : 185 cm(Converted to: 6 ft 1 inch(es), 73 inch(es)) Actual Weight : 131.6 kg(Converted to: 290 lb 2 oz) Dosing Weight Clinic : 131.6 kg Clinic BSA : 2.6 Body Mass Index : 38.45 kg/m2 ANNE MARIE TUTTLE LPN, RT - 01/04/2015 10:41 CDT Source: [employer] Document Id: [id number] CDT!12 documented in this encounter Plan of Treatment Not on filedocumented as of this encounter Visit Diagnoses Not on filedocumented in this encounter Additional Health Concerns Assessment Noted Time PHQ-9 Depression Total Score: 18 02/14/2013 9:53 AM CD T documented as of this encounter
--- OUTSIDE RECORDS SUMMARY | 2022-07-29 10:53 | XMS_ITS | Encounter Summary ---
:1960 Author Organization [facility] Address [address] [place] [address] Care Team Providers Name Role Phone Unavailable Primary Care Provider Unavailable Encounter Details Date Type Department Care Team Description 12/18/2014 Hospital Encounter HX [facility] Cintia Copeland M.D. [address] [place] [phone] (Wo rk) Social History Tobacco Use [...] - - Height 185 cm (6' 0.84) 12/18/2014 11:53 AM CDT Body Mass Index - - documented in this encounter Miscellaneous Notes Miscellaneous - Conversion, Historical Provider Ser - 12/18/2014 11:59 PM CDT Coding Summary-Paper Based CODING DATE: 12/26/2014 FINAL [facility] STATUS: * Discharged to Home or Self Care PAYOR: Medicaid ADMIT DX: 593.9 Unspecified Disorder of Kidney and Ureter REASON FOR VISIT DX: 593.9 Unspecified Disorder of Kidney and Ureter FINAL DX: PRINCIPAL: 593.9 Unspecified Disorder of Kidney and Ureter SECONDARY: PROCEDURES DOCTOR NAME DATE NOTE: The code number assigned matches the documented diagnosis and / or procedure in the patient's chart. However, the narrative phrase printed from the coding software may appear abbreviated, or result in slightly different terminology. Coded By: CLARKE BLISS Date Saved: 12/26/2014 01:48 pm Source: [facility] Document Id: [id number] Miscellaneous - Shawnee Hjai, L.P.N. - 12/12/2014 3:09 PM CDT *General Message Document Contains Addenda Addendum by VINEET RAMIREZ LPN on 13 December 2014 14:53:34 CDT mailed note below to pt. Phone does not have voice mail.< Addendum by CINTIA KILGORE MD on 13 December 2014 13:44:56 CDT From: CINTIA KILGORE MD To: [facility]; Sent: 12/13/2014 13:44:56 CDT Subject: RE: *General Message Vitamin B was sent to the pharmacy at his last visit. He does not need Vitamin D. THanksCintia From: SHAWNEE HAJI LPN ([facility] Nurse [facility]) To: CINTIA KILGORE MD; Sent: 12/12/2014 15:09:50 CDT Subject: *General Message Ed was looking for prescriptions for his B12 and his vitamin D3. His says he doesn't need to take the vitamin D due to his Flinistone vitamins have vitamin D in them? Source: [facility] Document Id: [id number] Electronically signed by Conversion, [facility] [employer] Curator [id number] at 02/01/2017 3:36 PM CDT documented in this encounter Plan of Treatment Not on filedocumented as of this encounter Procedures Procedure Name Priority Date/Time Associated Diagnosis Comme nts BASIC METABOLIC Routine 12/18/2014 12:50 PM Resul ts for this PANEL, S/P CDT procedure are i n the results section. documented in this encounter Results (ABNORMAL) BMP (Basic Metabolic Panel) (12/18/2014 12:50 PM CDT) [facility] gist Method Time Signature Anion Gap 15 10 - 20 POWERCHART MMOLL BUN (Blood Urea 59 (H) 7 - 18 POWERCHART Nitrogen), S MGDL Chloride, S 97 (L) 98 - 107 POWERCHART MMOLL CO2 Total 21.5 (L) 23.0 - POWERCHART 29.0 MMOLL Creatinine 2.42 (H) 0.60 - POWERCHART 1.30 MGDL Glucose 206 (H) 70 - 139 POWERCHART MGDL Calcium, Total, 9.9 8.6 - 10.0 POWERCHART S MGDL Sodium, S 129.3 (L) 135.0 - POWERCHART 145.0 MMOLL Potassium, S 4.3 3.6 - 4.8 POWERCHART MMOLL HXeGFR (MDRD) 28 (L) >=60 POWERCHART [id number] eGFR 34 (L) >=60 POWERCHART Black/ [id number] Afghan Specimen (Source) Anatomical Collection Method Collection Time Re ceived Time Location / / Volume Laterality Blood 12/18/2014 12:50 PM CDT Cintia Copeland M.D. LAB BLOOD ADD-ON Performing Organization Address City/State/ZIP Code Phon e Number POWERCHART documented in this encounter Visit Diagnoses Not on filedocumented in this encounter Additional Health Concerns Assessment Noted Time PHQ-9 Depression Total Score: 18 02/14/2013 9:53 AM CD T documented as of this encounter
--- OUTSIDE RECORDS SUMMARY | 2022-07-29 10:53 | XMS_ITS | Encounter Summary ---
:1960 Author Organization [facility] Address [address] [place] [address] Care Team Providers Name Role Phone Unavailable Primary Care Provider Unavailable Encounter Details Date Type Department Care Team Description 11/20/2014 Hospital Encounter HX [facility] Cintia Aguirre M.D. [address] [place] [phone] (Wo rk) Social History Tobacco Use Types Packs/Day Years Used Date Smoking Tobacco: Never Assessed Sex Assigned at Date Recorded Not on file documented as of this encounter Last Filed Vital Signs Vital Sign Reading Time Taken Comments Blood Pressure 129/65 11/20/2014 12:06 PM CDT Pulse 43 11/20/2014 10:51 AM CDT Temperature - - Respiratory Rate - - Oxygen Saturation - - Inhaled Oxygen Concentration - - Weight 154 kg (338 lb 13.6 oz) 11/20/2014 10:51 AM CDT Height 185 cm (6' 0.84) 11/20/2014 12:06 PM CDT Body Mass Index 44.91 11/20/2014 10:51 AM CDT documented in this encounter Progress Notes Cintia Cobb M.D. - 11/20/2014 7:03 AM CDT Clinic Full Note CHIEF COMPLAINT/REASON FOR VISIT right hip and knee discomfort x 2 weeks HISTORY OF PRESENT ILLNESS Ed presents today for right knee and right hip pain. They have both been bothering him for about 2 weeks. The knee has been very painful and will get stiff so he can hardly bend it. It also feels likeit will give out on him at times. He feels like he is walking differently. He denies any recent injury although he had an injury years ago for which he did not seek care. He has been running a few moreloads, but otherwise no big change in activity. Otherwise, blood sugars the last few days have been around 150s, but before that they were in the 80s-120s. Ankle swelling has been good. No chest pain or problems with breathing. He is scheduled to have his bariatric surgery tomorrow. MEDICATIONS Advil, 200 mg, 2 tabs daily, PO allopurinol 300 mg oral tablet, 300 mg, 1 tab(s), PO, Daily, 1 refills amLODIPine 10 mg oral tablet, 10 mg, 1 tab(s), hypertension, PO, Daily, 11 refills Cialis 20 mg oral tablet, 1 tab(s), PO, Daily, PRN Dok Plus, 2 tab(s), PO, Daily hydrochlorothiazide 25 mg oral tablet, 50 mg, 2 tab(s), high blood pressure, PO, Daily, 3 refills hydrocortisone 2.5% topical lotion, 1 jannie, Topical, 3xDay, 0 refills Lantus Solostar Pen 100 units/mL subcutaneous solution, 80 units, diabetes, Subcut., Daily, 3 refills Lasix 40 mg oral tablet, See Instructions, 20 mg in morning, 60mg in eveningleg swelling, 3 refills lisinopril 40 mg oral tablet, 40 mg, 1 tab(s), high blood pressure, PO, 2xDay, 3 refills metformin 1000 mg oral tablet, 1,000 mg, 1 tab(s), diabetes, PO, 2xDay meal, 3 refills metoprolol tartrate 25 mg oral tablet, 25 mg, 1 tab(s), PO, 2xDay, 11 refills omeprazole 20 mg oral delayed release capsule, 20 mg, 1 cap(s), PO, Daily, 1 refills simvastatin 40 mg oral tablet, 40 mg, 1 tab(s), high cholesterol, PO, Bedtime, 2 refills Victoza 18 mg/3 mL subcutaneous solution, 1.8 mg, Subcut., Daily, 1 refills ALLERGIES Cipro Influenza Virus Vaccine (diarrhea) [...] (12/26/2009), Discectomy (02/19/1989). SOCIAL HISTORY Date Time: 11/20/2014 10:51 Tobacco: Smoking Status: Never smoker Exposure: Care provider denies smoking in home Alcohol: Use: No Results Found Recreational Drugs: Use: None Type: No Results Found FAMILY HISTORY Mother ( at 72 year(s)):Positive: Diabetes mellitus; Kidney disease; Myocardial infarction Father:Positive: Congestive heart failure; Hypertension SYSTEMS REVIEW As per HPI. VITAL SIGNS T: 36.1 ??C (Core) HR: 43 BP: 129 / 65 HT: 185 cm WT: 153.7 kg BMI: 44.91 PHYSICAL EXAMINATION General: Patient is alert and oriented in no acute distress. Heart: Bradycardic. S1 S2. No murmurs. Lungs: Clear to auscultation. Extremities: No tenderness with palpation of the right hip. No pain with internal or external rotation of right hip. Patient has tenderness about his right patella, especially the inferior border. Minimal joint effusion compared to the left. No warmth. No laxity with varus or valgus stressing bilaterally. Luis Alberto's test may be a little more lax on the right than the left, but there is no associated pain. DIAGNOSTIC RESULTS Report 20-Nov-2014 11:55:00 Exam: R Knee 2vw Indications: knee pain 20-Nov-2014 11:57 CA Right Knee 2vw: IMPRESSION: Minimal tricompartmental degenerative hypertrophic changes right knee. Inferior patellar bone spur. Benign soft tissue calcification within the posterolateral aspect of the distal thigh and knee. Vascular calcification. Kelsey Peterson MD. [id number] 20-Nov-2014 11:57 [1] Report 20-Nov-2014 11:54:00 Exam: R Hip 2vw AP/Obl Indications: hip pain 20-Nov-2014 11:59 CA Right X-ray hip, 2 views, including AP view of the pelvis: IMPRESSION: Mild degenerative arthritis both hips, greater on the right. Mottled lucencies involving bones of the pelvis and both proximal femurs. These findings could all be related to demineralization but the possibility of marrow infiltrating neoplasm such as multiple myeloma cannot completely be excluded. Clinical correlation would be helpful. Calcific tendonitis adjacent to right greater trochanter and both inferior pubic rami and ischial tuberosities. Degenerative arthritis right SI joint and visualized lumbar spine. Fidel Olvera MD. [id number] 20-Nov-2014 11:59 [2] IMPRESSION/REPORT/PLAN 1. Pain Knee R Pain is most likely related to patellar tendinitis. Discussed using ice, Tylenol, stretching and rest to help with pain. Hopefully, patient's surgery will allow him to get some rest. If pain continuesafter he gets up and moving again, will consider PT. Ordered: OV Est Pt Level 4 - 35974 - 25 min 2. Pain Hip R Evidence of arthritis on xray. Again hopefully, rest and weight loss will improve his discomfort. Tylenol for pain. Ordered: OV Est Pt Level 4 - [id number] - 25 min 3. Insufficiency Renal NOS Patient's last creatinine was up a little more at 1.43. I did have the opportunity to speak with his surgical team in [place]. Certainly his diabetes and hypertension could be damaging his kidneys and the diuretics are exacerbating that. I am hoping that as he loses weight, we will be able to decrease some of him medications and hopefully see some improvement. Ordered: OV Est Pt Level 4 - [id number] - 25 min 4. Obesity Medically Complicated Patient has bariatric surgery tomorrow. We discussed that as he loses weight we will need to closely follow his blood pressure, edema, and blood sugars as we will likely be able to reduce and or stop some of his medications. I will plan on seeing him back in about 2 weeks. Ordered: OV Est Pt Level 4 - [id number] - 25 min FOOTNOTES [1]XR Knee Right 2 or less views; CLARKE SOLIZ 11/20/2014 11:52 CDT [2]XR Hip Right 2 or more views; CLARKE SOLIZ 11/20/2014 11:51 CDT Electronically Signed By: CINTIA KILGORE MD On: 11/21/2014 07:08 AM Source: [employer] Document Id: [id number] documented in this encounter Miscellaneous Notes Miscellaneous - Anne Marie Tuttle L.P.N. - 11/20/2014 12:06 PM CDT Ambulatory Vitals Height Weight Ambulatory Vitals Height Weight Entered On: 11/20/2014 12:06 CDT Performed On: 11/20/2014 12:06 CDT by ANNE MARIE TUTTLE LPN RT Vitals/Ht/Wt Systolic Blood Pressure : 129 mmHg Diastolic Blood Pressure : 65 mmHg NIBP Mean : 86 mmHg BP Location : Left upper extremity Blood Pressure Cuff Size : Large Height : 185 cm(Converted to: 6 ft 1 inch(es), 73 inch(es)) ANNE MARIE TUTTLE LPN, RT - 11/20/2014 12:06 CDT Source: [employer] Document Id: [id number] CDT!8 Miscellaneous - Cintia Cobb M.D. - 11/20/2014 11:18 AM CDT Ambulatory Patient Summary [address] [id number] Visit Information Name: LAZ LUNA [facility] Number: [id number] Current Date: 11/20/2014 11:18:39 Physicians Attending Provider: CINTIA KILGORE MD Primary [...] tablet) 1 Tablet(s), Oral, once a day amLODIPine (amLODIPine 10 mg oral tablet) 1 Tablet(s), Oral, once a day hypertension docusate-senna (Dok Plus) 2 Tablet(s), Oral, once a day furosemide (Lasix 40 mg oral tablet) See Instructions 20 mg in morning, 60mg in evening leg swelling hydrochlorothiazide (hydrochlorothiazide 25 mg oral tablet) 2 Tablet(s), Oral, once a day high bloodpressure hydrocortisone topical (hydrocortisone 2.5% topical lotion) 1 jannie, Topical, three times a day ibuprofen (Advil) 200 mg, Oral, 2 tabs daily insulin glargine (Lantus Solostar Pen 100 units/mL subcutaneous solution) 80 units, Subcutaneous, once a day diabetes liraglutide (Victoza 18 mg/3 mL subcutaneous solution) 1.8 mg, Subcutaneous, once a day lisinopril (lisinopril 40 mg oral tablet) 1 Tablet(s), Oral, two times a day high blood pressure metFORMIN (metformin 1000 mg oral tablet) 1 Tablet(s), Oral, two times a day with meals diabetes metoprolol (metoprolol tartrate 25 mg oral tablet) 1 Tablet(s), Oral, two times a day omeprazole (omeprazole 20 mg oral delayed release capsule) 1 cap, Oral, once a day simvastatin (simvastatin 40 mg oral tablet) 1 Tablet(s), Oral, once a day (at bedtime) high cholesterol tadalafil (Cialis 20 mg oral tablet) 1 Tablet(s), Oral, once a day as needed for erectile dysfunction Take as needed prior to anticipated sexual activity Stop Taking the Following Medications: Medication list as of 11-20-14 11:18 Attention: If you have any medications at home that are not on this list, DO NOT take them until youcontact your provider for clarification. Give a copy of your medication list to your primary care provider. Update your medication list any time medications or doses are changed and carry your medication list at all times in case of emergency. Electronically Signed By: Signed On: Your Allergies & Intolerances Substance Reaction Symptoms [...] further appointment detail needed. Your Goals/Additional instructions: Source: [employer] POWERCHART Document Id: [id number] Miscellaneous - Cintia Cobb M.D. - 11/20/2014 11:18 AM CDT Ambulatory Discharge Medication List [address] [id number] Visit Information Name: LAZ LUNA [facility] Number: [id number] Visit Date: 11/20/2014 11:18:37 Attending Provider: CINTIA KILGORE MD Primary Care [...] tablet) 1 Tablet(s), Oral, once a day amLODIPine (amLODIPine 10 mg oral tablet) 1 Tablet(s), Oral, once a day hypertension docusate-senna (Dok Plus) 2 Tablet(s), Oral, once a day furosemide (Lasix 40 mg oral tablet) See Instructions 20 mg in morning, 60mg in evening leg swelling hydrochlorothiazide (hydrochlorothiazide 25 mg oral tablet) 2 Tablet(s), Oral, once a day high bloodpressure hydrocortisone topical (hydrocortisone 2.5% topical lotion) 1 jannie, Topical, three times a day ibuprofen (Advil) 200 mg, Oral, 2 tabs daily insulin glargine (Lantus Solostar Pen 100 units/mL subcutaneous solution) 80 units, Subcutaneous, once a day diabetes liraglutide (Victoza 18 mg/3 mL subcutaneous solution) 1.8 mg, Subcutaneous, once a day lisinopril (lisinopril 40 mg oral tablet) 1 Tablet(s), Oral, two times a day high blood pressure metFORMIN (metformin 1000 mg oral tablet) 1 Tablet(s), Oral, two times a day with meals diabetes metoprolol (metoprolol tartrate 25 mg oral tablet) 1 Tablet(s), Oral, two times a day omeprazole (omeprazole 20 mg oral delayed release capsule) 1 cap, Oral, once a day simvastatin (simvastatin 40 mg oral tablet) 1 Tablet(s), Oral, once a day (at bedtime) high cholesterol tadalafil (Cialis 20 mg oral tablet) 1 Tablet(s), Oral, once a day as needed for erectile dysfunction Take as needed prior to anticipated sexual activity Stop Taking the Following Medications: Medication list as of 11-20-14 11:18 Attention: If you have any medications at home that are not on this list, DO NOT take them until youcontact your provider for clarification. Give a copy of your medication list to your primary care provider. Update your medication list any time medications or doses are changed and carry your medication list at all times in case of emergency. Electronically Signed By: Signed On: Additional Information: Source: [facility] POWERCHART Document Id: [id number] Miscellaneous - Anne Marie Tuttle L.P.N. - 11/20/2014 10:51 AM CDT Adult Slitter And Cutter Operator Intake/History Adult Slitter And Cutter Operator Intake/History Entered On: 11/20/2014 10:53 CDT Performed On: 11/20/2014 10:51 CDT by ANNE MARIE TUTTLE LPN, RT Intake Chief Complaint : right hip and knee discomfort x 2 weeks Temperature Core : 36.1 DegC(Converted to: 97.0 DegF) (LOW) Peripheral Pulse Rate : 43 /min (<LLOW) Systolic Blood Pressure : 150 mmHg (HI) Diastolic Blood Pressure : 76 mmHg NIBP Mean : 101 mmHg BP Location : Left upper extremity Blood Pressure Cuff Size : Large Height : 185 cm(Converted to: 6 ft 1 inch(es), 73 inch(es)) Actual Weight : 153.7 kg(Converted to: 338 lb 14 oz) Weight Source : Standing scale Dosing Weight Clinic : 153.7 kg Clinic BSA : 2.81 Body Mass Index : 44.91 kg/m2 ANNE MARIE TUTTLE LPN, RT - 11/20/2014 10:51 CDT General Info Information Given By : Father Preferred Communication Mode : Verbal Languages : Swedish Is Patient Female and 13-50 no hysterectomy : No ANNE MARIE TUTTLE LPN, RT - 11/20/2014 10:51 CDT Subjective Pain Symptoms : Yes ANNE MARIE TUTTLE LPN, RT - 11/20/2014 10:51 CDT Pain Scale Pain Scale Verbal 0-10 : Open ANNE MARIE TUTTLE LPN, RT - 11/20/2014 10:51 CDT Pain Pain Assessment Grid Pain 1 Pain 2 Location : Hip Knee Laterality : Right Right ANNE MARIE TUTTLE LPN, RT - 11/20/2014 10:51 CDT ANNE MARIE TUTTLE LPN, RT - 11/20/2014 10:51 CDT Dependent Habits Tobacco Use/Currently Using : No Exposure to Tobacco Smoke : Care provider denies smoking in home Smoking Status : Never smoker ANNE MARIE TUTTLE LPN, RT - 11/20/2014 10:51 CDT Tobacco Use Grid Last Use : never ANNE MARIE TUTTLE LPN, RT - 11/20/2014 10:51 CDT Caffeine Use Grid Caffeine Use : Current Type : Coffee, Soft drinks Frequency : Weekly Amount : soda- weekly; coffee- 1x/week TONYA ANNE MARIE Lindsay LPN, RT - 11/20/2014 10:51 CDT Recreational Drug Use Grid Drug Use : None ANNE MARIE TUTTLE LPN, RT - 11/20/2014 10:51 CDT ID Screen Drug Resistant Organism : No Travel Within Last 21 Days : No Contact with someone with Ebola : No ANNE MARIE TUTTLE LPN, RT - 11/20/2014 10:51 CDT Source: [employer] Document Id: [id number] CDT!53 documented in this encounter Plan of Treatment Not on filedocumented as of this encounter Visit Diagnoses Not on filedocumented in this encounter Additional Health Concerns Assessment Noted Time PHQ-9 Depression Total Score: 18 02/14/2013 9:53 AM CD T documented as of this encounter
--- OUTSIDE RECORDS SUMMARY | 2022-07-29 10:53 | XMS_ITS | Encounter Summary ---
:1960 Author Organization [facility] Address [address] [place] [address] Care Team Providers Name Role Phone Unavailable Primary Care Provider Unavailable Encounter Details Date Type Department Care Team Description 12/25/2014 Hospital Encounter HX [facility] Cintia lindquist M.D. [address] [place] [phone] (Wo rk) Social History Tobacco Use Types Packs/Day Years Used Date Smoking Tobacco: Never Assessed Sex Assigned at Date Recorded Not on file documented as of this encounter Last Filed Vital Signs Vital Sign Reading Time Taken Comments Blood Pressure 123/74 12/25/2014 1:28 PM CDT Pulse 48 12/25/2014 1:28 PM CDT Temperature - - Respiratory Rate - - Oxygen Saturation - - Inhaled Oxygen Concentration - - Weight 133 kg (293 lb 6.9 oz) 12/25/2014 1:19 PM CDT Height 185 cm (6' 0.84) 12/25/2014 1:28 PM CDT Body Mass Index 38.89 12/25/2014 1:19 PM CDT documented in this encounter Miscellaneous Notes Telephone Encounter - Conversion, Historical Provider Ser - 05/02/2017 5:53 PM CDT *Phone Message Document Contains Addenda Addendum by ANGEL NGUYEN on May 04, 2017 08:05:05 CDT From: ANGEL NGUYEN ([place] [facility] Nurse Gu[facility]) To: CINTIA BULLOCK MD; Sent: 05/04/2017 08:05:05 CDT Subject: BP readings Addendum by ANGEL NGUYEN on May 04, 2017 08:04:48 CDT BP access: [email or web address], select bp tracker hyperlink in the middle of the page, enter patient's access codeof [email or web address], month 10, year 1959. This will bring you to a snap shot of bp readings. From: MICHAEL GAITAN To: [place] [facility] Nurse Guajardo; Sent: 05/02/2017 17:53:29 CDT Subject: *Phone Message Caller is: ( x ) Patient ( ) Mother ( ) Father ( ) Spouse ( ) Daughter ( ) Son ( ) Pharmacy ( ) Other: Physician: Pato Patient MRN #: Reason for Call: BP Readings Message: Patient called in to give the following BP readings: 05/02/17 [facility] 2pm [facility] - 05/02/17 [facility] 5:15 66/41. Patient states all are normal and would like you to view his readings at [facility] as he has advised to before. Advice/Action: Source used: ( ) Verbalizes understanding [...] back cell phone number ( ) Source: [facility] POWERCHART Document Id: [id number] Miscellaneous - Rosetta Ramirez L.PPiliN. - 12/25/2014 1:28 PM CDT Ambulatory Vitals Height Weight Ambulatory Vitals Height Weight Entered On: 12/25/2014 13:29 CDT Performed On: 12/25/2014 13:28 CDT by ROSETTA RAMIREZ LPN Vitals/Ht/Wt Peripheral Pulse Rate : 48 /min (<LLOW) Systolic Blood Pressure : 123 mmHg Diastolic Blood Pressure : 74 mmHg NIBP Mean : 90 mmHg BP Location : Left upper extremity Blood Pressure Cuff Size : Large Height : 185 cm(Converted to: 6 ft 1 inch(es), 73 inch(es)) ROSETTA RAMIREZ LPN - 12/25/2014 13:28 CDT Source: [employer] Document Id: [id number] CDT!9 Miscellaneous - Rosetta Ramirez L.P.N. - 12/25/2014 1:19 PM CDT Ambulatory Vitals Height Weight Ambulatory Vitals Height Weight Entered On: 12/25/2014 13:24 CDT Performed On: 12/25/2014 13:19 CDT by ROSETTA RAMIREZ LPN Vitals/Ht/Wt Peripheral Pulse Rate : 40 /min (<LLOW) Systolic Blood Pressure : 130 mmHg Diastolic Blood Pressure : 76 mmHg NIBP Mean : 94 mmHg Height : 185 cm(Converted to: 6 ft 1 inch(es), 73 inch(es)) Actual Weight : 133.1 kg(Converted to: 293 lb 7 oz) Weight Source : Standing scale Dosing Weight Clinic : 133.1 kg Clinic BSA : 2.62 Body Mass Index : 38.89 kg/m2 ROSETTA RAMIREZ LPN - 12/25/2014 13:19 CDT Source: [employer] Document Id: [id number] CDT!12 documented in this encounter Plan of Treatment Not on filedocumented as of this encounter Visit Diagnoses Not on filedocumented in this encounter Additional Health Concerns Assessment Noted Time PHQ-9 Depression Total Score: 18 02/14/2013 9:53 AM CD T documented as of this encounter
--- OUTSIDE RECORDS SUMMARY | 2022-07-29 10:53 | XMS_ITS | Encounter Summary ---
:1960 Author Organization [facility] Address [address] [place] [address] Care Team Providers Name Role Phone Unavailable Primary Care Provider Unavailable Encounter Details Date Type Department Care Team Description 10/24/2014 Hospital Encounter HX [facility] Cintia Aguirre M.D. [address] [place] [phone] (Wo rk) Social History Tobacco Use Types Packs/Day Years Used Date Smoking Tobacco: Never Assessed Sex Assigned at Date Recorded Not on file documented as of this encounter Last Filed Vital Signs Vital Sign Reading Time Taken Comments Blood Pressure 151/80 10/24/2014 6:00 PM CABINETMAKER SUPERVISOR Pulse 46 10/24/2014 6:00 PM CABINETMAKER SUPERVISOR Temperature - - Respiratory Rate 16 10/24/2014 6:00 PM CABINETMAKER SUPERVISOR Oxygen Saturation - - Inhaled Oxygen Concentration - - Weight 155 kg (341 lb 11.4 oz) 10/24/2014 6:00 PM CABINETMAKER SUPERVISOR Height 185 cm (6' 0.84) 10/24/2014 6:00 PM CABINETMAKER SUPERVISOR Body Mass Index 45.29 10/24/2014 6:00 PM CABINETMAKER SUPERVISOR documented in this encounter Progress Notes Cintia Cobb M.D. - 10/24/2014 5:28 AM CST Clinic Full Note CHIEF COMPLAINT/REASON FOR VISIT Review some stuff with Dr. Song HISTORY OF PRESENT ILLNESS Ed is a 54 year old male who presents today to follow up on recent visit to the [facility] bariatric surgery program. He reports that this appointment went okay. He also saw a dietitian and they will be getting records from [facility] prior to scheduling an appt with the surgeon. They think he would be a good candidate for the gastric sleeve. Patient is interested in this because the recovery time would be shorter than the gastric bypass procedure. He states that he cannot afford to be off work for that long. He has follow up with [facility] to review bariatric surgery options tomorrow. He will also ask them about the sleeve option. Otherwise, he reports that he has been feeling well. Blood sugars have been between 80-140. Last A1c was much improved at 7.2. Low blood sugar of 69. Breathing has been good. No dizziness or lightheadedness. No chest pain. Ankles have been a liitle more swollen as he has not been wearing his compressive stockings daily. He had not been removing them at night due to the difficulty in getting them back on in the mornings and his legs had started to ache. MEDICATIONS Advil, 200 mg, 2 tabs daily, PO allopurinol 300 mg oral tablet, 300 mg, 1 tab(s), PO, Daily, 3 refills amLODIPine 10 mg oral tablet, 10 [...] capsule, 20 mg, 1 cap(s), PO, Daily, 3 refills simvastatin 40 mg oral tablet, 40 mg, 1 tab(s), high cholesterol, PO, Bedtime, 0 refills Victoza 18 mg/3 mL subcutaneous solution, [...] (12/26/2009), Discectomy (02/19/1989). SOCIAL HISTORY Date Time: 10/24/2014 18:00 Tobacco: Smoking Status: Never smoker Exposure: Care provider denies smoking in home Alcohol: Use: No Recreational Drugs: Use: None Type: No Results Found FAMILY HISTORY Mother ( at 72 year(s)):Positive: Diabetes mellitus; Kidney disease; Myocardial infarction Father:Positive: Congestive heart failure; Hypertension SYSTEMS REVIEW As per HPI. VITAL SIGNS T: 35.6 ??C (Core) RR: 16 BP: 151 / 80 SpO2: 96% HT: 185 cm WT: 155.0 kg BMI: 45.29 PHYSICAL EXAMINATION General: Alert and oriented. No acute distress. Neck: Supple. No lymphadenopathy. No carotid bruits. Cardiovascular exam: Regular rate and rhythm. Normal S1 and S2. No murmurs, rubs, or gallops. Lungs: Clear to auscultation bilaterally. Extremities: 2+ pedal edema bilaterally. LAB RESULTS Outside Lab Hgb A1c 7.2 % 10/03/2014 10:30 CABINETMAKER SUPERVISOR Outside Lab Creatinine (Serum) 1.34 mg/dL 10/03/2014 10:30 CABINETMAKER SUPERVISOR IMPRESSION/REPORT/PLAN 1. DM2 Blood sugars continue to do well. Last A1c was much improved. 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 We discussed that we could not givea guarantee that he would be able to come off of insulin, but that generally occurs with losing weight. Ordered: OV Est Pt Level 4 - 45892 - 25 min 2. Obesity Medically Complicated We reviewed the note from [facility]. They need [facility]'s records and I have asked him to follow up to ensure that has happened. Also reviewed that he needs to get down to a weight of 331. Recommended that he review the sleeve option with [facility] at his appointment tomorrow. Ordered: OV Est Pt Level 4 - 36033 - 25 min 3. Hypertension HTN NOS Blood pressure still a little high. Ordered: OV Est Pt Level 4 - 37078 - 25 min 4. Insufficiency Renal NOS Creatinine a little elevated with increased diuretic dose, but stable. He does showing spilling of protein into his urine. Ordered: OV Est Pt Level 4 - 61374 - 25 min 5. Edema Pedal Recommended that he wear his compressive stockings daily, but take them off at night. Recommended using dish gloves to put them on. Ordered: OV Est Pt Level 4 - 96905 - 25 min Electronically Signed By: CINTIA KILGORE MD On: 10/25/2014 05:33 AM Source: [employer] POWERCHART Document Id: [id number] NETMAKER SUPERVISOR documented in this encounter Miscellaneous Notes Miscellaneous - Cintia Cobb M.D. - 10/24/2014 6:48 PM CABINETMAKER SUPERVISOR Ambulatory Patient Summary [address] [id number] Visit Information Name: LAZ LUNA [facility] Number: [id number] Current Date: 10/24/2014 18:48:50 Physicians Attending Provider: CINTIA KILGORE MD Primary [...] the Following Medications: Medication list as of 10-24-14 18:48 Attention: If you have any medications at [...] Electronically Signed By: CINTIA KILGORE MD Signed On:24-OCT-2014 18:48:34 Your Allergies & Intolerances Substance Reaction Symptoms [...] appointment detail needed. Your Goals/Additional instructions: Source: [facility] POWERCHART Document Id: [id number] NETMAKER SUPERVISOR Miscellaneous - Cintia Cobb M.D. - 10/24/2014 6:48 PM CABINETMAKER SUPERVISOR Ambulatory Discharge Medication List [address] [place], [place] [id number] Visit Information Name: LAZ LUNA [facility] Number: [id number] Visit Date: 10/24/2014 18:48:48 Attending Provider: CINTIA KILGORE MD Primary Care [...] the Following Medications: Medication list as of 10-24-14 18:48 Attention: If you have any medications at [...] Electronically Signed By: CINTIA KILGORE MD Signed On:24-OCT-2014 18:48:34 Additional Information: Source: [facility] POWERCHART Document Id: [id number] NETMAKER SUPERVISOR Miscellaneous - Shawnee Haji L.P.N. - 10/24/2014 6:00 PM CST Adult Phys Therapist Intake/History Adult Phys Therapist Intake/History Entered On: 10/24/2014 18:04 CABINETMAKER SUPERVISOR Performed On: 10/24/2014 18:00 CABINETMAKER SUPERVISOR by SHAWNEE HAJI LPN Intake Chief Complaint : Review some stuff with Dr. Song Temperature Core : 35.6 DegC(Converted to: 96.1 DegF) (LOW) Peripheral Pulse Rate : 46 /min (<LLOW) Respiratory Rate : 16 /min Systolic Blood Pressure : 151 mmHg (HI) Diastolic Blood Pressure : 80 mmHg NIBP Mean : 104 mmHg SpO2 : 96 % SHAWNEE HAJI LPN - 10/24/2014 18:05 CABINETMAKER SUPERVISOR Heart Rhythm : Regular BP Location : Left upper extremity Blood Pressure Cuff Size : Large Oxygen Therapy : Room air Height : 185 cm(Converted to: 6 ft 1 inch(es), 73 inch(es)) Actual Weight : 155.0 kg(Converted to: 341 lb 11 oz) Weight Source : Standing scale Dosing Weight Clinic : 155 kg Clinic BSA : 2.82 Body Mass Index : 45.29 kg/m2 SHAWNEE HAJI LPN - 10/24/2014 18:00 CABINETMAKER SUPERVISOR General Info Information Given By : Patient Preferred Communication Mode : Verbal Languages : Citizen Of [place] Is Patient Female and 13-50 no hysterectomy : No SHAWNEE HAJI LPN - 10/24/2014 18:00 CABINETMAKER SUPERVISOR Subjective Pain Symptoms : No SHAWNEE HAJI LPN - 10/24/2014 18:00 CABINETMAKER SUPERVISOR Dependent Habits Tobacco Use/Currently Using : No Tobacco Use/Last 12 months : No Tobacco Use/Advised to Quit : No Exposure to Tobacco Smoke : Care provider denies smoking in home Smoking Status : Never smoker SHAWNEE HAJI LPN - 10/24/2014 18:00 CABINETMAKER SUPERVISOR Tobacco Use Grid Last Use : never SHAWNEE HAJI LPN - 10/24/2014 18:00 CABINETMAKER SUPERVISOR Alcohol Use : No SHAWNEE HAJI LPN - 10/24/2014 18:00 CABINETMAKER SUPERVISOR Caffeine Use Grid Caffeine Use : Current Type : Coffee, Soft drinks Frequency : Weekly Amount : soda- weekly; coffee- 1x/week SHAWNEE HAJI LPN - 10/24/2014 18:00 CABINETMAKER SUPERVISOR Recreational Drug Use Grid Drug Use : None SHAWNEE HAJI LPN - 10/24/2014 18:00 CABINETMAKER SUPERVISOR ID Screen Drug Resistant Organism : No Travel Within Last 21 Days : No SHAWNEE HAJI LPN - 10/24/2014 18:00 CABINETMAKER SUPERVISOR Source: [employer] Document Id: [id number] CABINETMAKER SUPERVISOR!10 NETMAKER SUPERVISOR documented in this encounter Plan of Treatment Not on filedocumented as of this encounter Visit Diagnoses Not on filedocumented in this encounter Additional Health Concerns Assessment Noted Time PHQ-9 Depression Total Score: 18 02/14/2013 9:53 AM CD T documented as of this encounter
--- OUTSIDE RECORDS SUMMARY | 2022-07-29 10:53 | XMS_ITS | Encounter Summary ---
:1960 Author Organization [facility] Address [address] [place] [address] Care Team Providers Name Role Phone Unavailable Primary Care Provider Unavailable Encounter Details Date Type Department Care Team Description 12/25/2014 Hospital Encounter HX [facility] Cintia Cobb M.D. [address] [place] [phone] (Wo rk) Social History Tobacco Use [...] - - Height 185 cm (6' 0.84) 12/25/2014 12:56 PM CDT Body Mass Index - - documented in this encounter Miscellaneous Notes Miscellaneous - Cintia Cobb M.D. - 12/27/2014 9:16 AM CDT Results Notification Document Contains Addenda Addendum by OLIVIA BECERRA V on 29 December 2014 15:19:35 CDT From: OLIVIA BECERRA V ([place] Family Medicine Nurse [place]) To: CINTIA KILGORE MD; Sent: 12/29/2014 15:19:35 CDT Show up: 12/29/2014 15:19:00 CDT Subject: RE: Results Notification Pt updated. Will come in for BP visit as requested sometime next week.Has appt to see you the following. Said he would've fit in your carry-on to go on vacation last week! From: CINTIA KILGORE MD To: ART Family Medicine Nurse [facility]; Sent: 12/27/2014 09:16:47 CDT Show up: 12/27/2014 09:16:00 CDT Subject: Results Notification Please let Ed know his labs look much better. Kidney function is in the normal range. Sodium is normal. Can we please make sure he is either coming in to see me or have a nurse visit blood pressure check this week? Thanks, Cintia Results: Date Result Name Ind Value Ref Range 12/25/2014 13:05 Sodium Lvl 136.0 mmol/L (135.0 - 145.0) 12/25/2014 13:05 Potassium Lvl 4.0 mmol/L (3.6 - 4.8) 12/25/2014 13:05 Chloride 103 mmol/L (98 - 107) 12/25/2014 13:05 CO2 (L) 22.6 mmol/L (23.0 - 29.0) 12/25/2014 13:05 AGAP 14 mmol/L (10 - 20) 12/25/2014 13:05 Glucose Lvl (H) 185 mg/dL (70 - 139) 12/25/2014 13:05 Creatinine 1.23 mg/dL (0.60 - 1.30) 12/25/2014 13:05 EGFR (MDRD) >60 mL/min/1.73m2 (>=60 - ) 12/25/2014 13:05 EGFR (MDRD) >60 mL/min/1.73m2 (>=60 - ) 12/25/2014 13:05 BUN (H) 33 mg/dL (7 - 18) 12/25/2014 13:05 Calcium Lvl 9.7 mg/dL (8.6 - 10.0) Source: [facility] POWERCHART Document Id: [id number] Electronically signed by Conversion, [facility] Short Piece Handler [id number] at 02/01/2017 4:56 PM CDT Miscellaneous - Conversion, Historical Provider Ser - 12/25/2014 11:59 PM CDT Coding Summary-Paper Based CODING DATE: 12/28/2014 FINAL [place] [facility] STATUS: * Discharged to Home [...] abbreviated, or result in slightly different terminology. Revised Coded By: ALON CABELLO Revised Date Saved: 12/28/2014 10:54 am Source: [facility] [employer] Document Id: [id number] documented in this encounter Plan of Treatment Not on filedocumented as of this encounter Procedures Procedure Name Priority Date/Time Associated Diagnosis Comme nts BASIC METABOLIC Routine 12/25/2014 1:05 PM Result s for this PANEL, S/P CDT procedure are i n the results section. documented in this encounter Results (ABNORMAL) BMP (Basic Metabolic Panel) (12/25/2014 1:05 PM CDT) Analysis Performed At Patho logist Time Signature Anion Gap 14 10 - 20 POWERCHART [facility] BUN (Blood Urea 33 (H) 7 - 18 POWERCHART Nitrogen), S MGDL Chloride, S 103 98 - 107 POWERCHART [facility] CO2 Total 22.6 (L) 23.0 - POWERCHART 29.0 [facility] Creatinine 1.23 0.60 - POWERCHART 1.30 MGDL Glucose 185 (H) 70 - 139 POWERCHART MGDL Calcium, Total, 9.7 8.6 - 10.0 POWERCHART S MGDL Sodium, S 136.0 135.0 - POWERCHART 145.0 [facility] Potassium, S 4.0 3.6 - 4.8 POWERCHART [facility] HXeGFR (MDRD) >60 >=60 POWERCHART [id number] eGFR >60 >=60 POWERCHART Black/ [id number] [place] Specimen (Source) Anatomical Collection Method Collection Time Re ceived Time Location / / Volume Laterality Blood 12/25/2014 1:05 PM CDT Cintia Copeland M.D. LAB BLOOD ADD-ON Performing Organization Address City/State/ZIP Code Phon e Number POWERCHART documented in this encounter Visit Diagnoses Not on filedocumented in this encounter Additional Health Concerns Assessment Noted Time PHQ-9 Depression Total Score: 18 02/14/2013 9:53 AM CD T documented as of this encounter
--- OUTSIDE RECORDS SUMMARY | 2022-07-29 10:53 | XMS_ITS | Encounter Summary ---
:1960 Author Organization [facility] Address [address] [place] [address] Care Team Providers Name Role Phone Unavailable Primary Care Provider Unavailable Encounter Details Date Type Department Care Team Description 12/18/2014 Hospital Encounter HX [facility] Cintia Aguirre M.D. [address] [place] [phone] (Wo rk) Social History Tobacco Use Types Packs/Day Years Used Date Smoking Tobacco: Never Assessed Sex Assigned at Date Recorded Not on file documented as of this encounter Last Filed Vital Signs Vital Sign Reading Time Taken Comments Blood Pressure 98/56 12/18/2014 11:59 AM CDT Pulse 60 12/18/2014 11:59 AM CDT Temperature - - Respiratory Rate 16 12/18/2014 11:59 AM CDT Oxygen Saturation - - Inhaled Oxygen Concentration - - Weight 133 kg (293 lb 3.4 oz) 12/18/2014 11:59 AM CDT Height 185 cm (6' 0.84) 12/18/2014 11:59 AM CDT Body Mass Index 38.86 12/18/2014 11:59 AM CDT documented in this encounter Nursing Notes Keyla Pate L.P.N. - 12/18/2014 2:42 PM CDT called per Verbal request of Dr. Arriaza, informed to remove lisinopril from medications and only take 1/2 tab of the amlodipine. also to have follow visit and lab work next week, also informed that dr. arriaza will be informing the kidney specialist in [place]. Electronically Signed By: KEYLA PATE LPN On: 12/18/2014 03:17 PM Source: [facility] [employer] Document Id: [id number] documented in this encounter Miscellaneous Notes Miscellaneous - Shirlene Abbott R.N. - 01/03/2015 11:22 AM CDT *General Message Document Contains Addenda Addendum by KEYLA PATE LPN on 05 Jan 2015 12:00:12 CDT this screen shot was printed and placed in prepped folder for pt so we can update scripts with pt/DrPili Addendum by SHIRLENE ABBOTT RN on 03 January 2015 11:23:27 CDT From: SHIRLENE ABBOTT RN To: ID Family Medicine Nurse [place]; Sent: 01/03/2015 11:23:27 CDT Subject: 5-5-15 From: SHIRLENE ABBOTT RN To: SHIRLENE ABBOTT RN; Sent: 01/03/2015 11:22:52 CDT Subject: *General Message Pt has appt on January 09. [facility] pharmacy would like updated scripts on anything we will be filling, pt reports different directions on Lisinopril, HCTZ and Amlodipine. Checked Synthesis but not sure who prescribed. Source: [facility] POWERCHART Document Id: [id number] Miscellaneous - Shawnee Haji L.PiPliNPili - 12/18/2014 11:59 AM CDT Ambulatory Vitals Height Weight Ambulatory Vitals Height Weight Entered On: 12/18/2014 12:01 CDT Performed On: 12/18/2014 11:59 CDT by SHAWNEE HAJI LPN Vitals/Ht/Wt Peripheral Pulse Rate : 60 /min Respiratory Rate : 16 /min Heart Rhythm : Regular Systolic Blood Pressure : 98 mmHg Diastolic Blood Pressure : 56 mmHg NIBP Mean : 70 mmHg BP Location : Left upper extremity Blood Pressure Cuff Size : Large Height : 185 cm(Converted to: 6 ft 1 inch(es), 73 inch(es)) Actual Weight : 133.0 kg(Converted to: 293 lb 3 oz) Weight Source : Standing scale Dosing Weight Clinic : 133 kg Clinic BSA : 2.61 Body Mass Index : 38.86 kg/m2 SHAWNEE HAJI LPN - 12/18/2014 11:59 CDT Source: [employer] Document Id: [id number]!16 documented in this encounter Plan of Treatment Not on filedocumented as of this encounter Visit Diagnoses Not on filedocumented in this encounter Additional Health Concerns Assessment Noted Time PHQ-9 Depression Total Score: 18 02/14/2013 9:53 AM CD T documented as of this encounter
--- OUTSIDE RECORDS SUMMARY | 2022-07-29 10:53 | XMS_ITS | Encounter Summary ---
:1960 Author Organization [facility] Address [address] [place] [address] Care Team Providers Name Role Phone Unavailable Primary Care Provider Unavailable Encounter Details Date Type Department Care Team Description 11/21/2014 - 11/27/2014 Hospital Encounter HX RST WENDI 2C Social History Tobacco Use Types Packs/Day Years Used Date Smoking Tobacco: Never Assessed Sex Assigned at Date Recorded Not on file documented as of this encounter Last Filed Vital Signs Vital Sign Reading Time Taken Comments Blood Pressure 150/78 11/27/2014 1:54 PM NIBP - Value from CDT [facility]. Pulse 68 11/27/2014 1:54 PM Value from Ch [facility]. CDT Temperature - - Respiratory Rate 20 11/27/2014 1:54 PM Value from C [facility]art[facility]. CDT Oxygen Saturation - - Inhaled Oxygen - - Concentration Weight 144 kg (317 lb 0.3 11/27/2014 12:19 oz) PM CDT Height 185 cm (6' 0.84) 11/21/2014 7:25 AM CDT Body Mass Index 42.02 11/21/2014 7:25 AM CDT documented in this encounter Plan of Treatment Not on filedocumented as of this encounter Procedures Procedure Name Priority Date/Time Associated Comments Diagnosis GLUCOSE POCT, B Routine 11/27/2014 11:59 Results for this AM CDT procedure are i n the results section. GLUCOSE POCT, B Routine 11/27/2014 6:26 AM Result s for this CDT procedure are i n the results section. GLUCOSE POCT, B Routine 11/26/2014 10:21 Results for this PM CDT procedure are i n the results section. GLUCOSE POCT, B Routine 11/26/2014 5:49 PM Result s for this CDT procedure are i n the results section. GLUCOSE POCT, B Routine 11/26/2014 11:48 Results for this AM CDT procedure are i n the results section. ELECTROLYTE (CHEM 4) Routine 11/26/2014 7:18 AM R esults for this PANEL, S/P CDT procedure are i n the results section. PHOSPHORUS Routine 11/26/2014 7:18 AM Results f or this (INORGANIC), S CDT procedure are in the results section. MAGNESIUM, S Routine 11/26/2014 7:18 AM Results f or this CDT procedure are i n the results section. GLUCOSE POCT, B Routine 11/26/2014 6:43 AM Result s for this CDT procedure are i n the results section. GLUCOSE POCT, B Routine 11/25/2014 9:56 PM Result s for this CDT procedure are i n the results section. GLUCOSE POCT, B Routine 11/25/2014 5:35 PM Result s for this CDT procedure are i n the results section. GLUCOSE POCT, B Routine 11/25/2014 2:47 PM Result s for this CDT procedure are i n the results section. GLUCOSE POCT, B Routine 11/25/2014 6:40 AM Result s for this CDT procedure are i n the results section. ELECTROLYTE (CHEM 4) Routine 11/25/2014 4:09 AM R esults for this PANEL, S/P CDT procedure are i n the results section. CBC WITH Routine 11/25/2014 4:09 AM Results f or this DIFFERENTIAL, B CDT procedure ar e in the results section. PHOSPHORUS Routine 11/25/2014 4:09 AM Results f or this (INORGANIC), S CDT procedure are in the results section. GLUCOSE POCT, B Routine 11/25/2014 1:39 AM Result s for this CDT procedure are i n the results section. GLUCOSE POCT, B Routine 11/24/2014 7:34 PM Result s for this CDT procedure are i n the results section. GLUCOSE POCT, B Routine 11/24/2014 1:21 PM Result s for this CDT procedure are i n the results section. ELECTROLYTE (CHEM 4) Routine 11/24/2014 6:50 AM R esults for this PANEL, S/P CDT procedure are i n the results section. ABG W/COOX Routine 11/24/2014 6:50 AM Results f or this CDT procedure are i n the results section. PROTHROMBIN TIME Routine 11/24/2014 6:50 AM Resul ts for this (PT), P CDT procedure are i n the results section. CBC WITHOUT Routine 11/24/2014 6:50 AM Results f or this DIFFERENTIAL, B CDT procedure ar e in the results section. PHOSPHORUS Routine 11/24/2014 6:50 AM Results f or this (INORGANIC), S CDT procedure are in the results section. MAGNESIUM, S Routine 11/24/2014 6:50 AM Results f or this CDT procedure are i n the results section. CALCIUM, IONIZED, S/B Routine 11/24/2014 6:50 AM Results for this CDT procedure are i n the results section. GLUCOSE POCT, B Routine 11/24/2014 6:49 AM Result s for this CDT procedure are i n the results section. ABG W/COOX Routine 11/24/2014 2:50 AM Results f or this CDT procedure are i n the results section. GLUCOSE POCT, B Routine 11/24/2014 2:49 AM Result s for this CDT procedure are i n the results section. GLUCOSE POCT, B Routine 11/23/2014 7:05 PM Result s for this CDT procedure are i n the results section. ELECTROLYTE (CHEM 4) Routine 11/23/2014 3:35 PM R esults for this PANEL, S/P CDT procedure are i n the results section. CARDIAC BIOMARKER Routine 11/23/2014 3:35 PM Resu lts for this PANEL, S CDT procedure are i n the results section. ABG W/O COOX Routine 11/23/2014 3:35 PM Results f or this CDT procedure are i n the results section. GLUCOSE POCT, B Routine 11/23/2014 3:30 PM Result s for this CDT procedure are i n the results section. ECG Routine 11/23/2014 2:47 PM Results f or this CDT procedure are i n the results section. GLUCOSE POCT, B Routine 11/23/2014 7:46 AM Result s for this CDT procedure are i n the results section. DX CHEST PORTABLE 1 Routine 11/23/2014 6:16 AM Re sults for this VIEW CDT procedure are i n the results section. ELECTROLYTE (CHEM 4) Routine 11/23/2014 3:47 AM R esults for this PANEL, S/P CDT procedure are i n the results section. POTASSIUM, B Routine 11/23/2014 3:47 AM Results f or this CDT procedure are i n the results section. CBC WITHOUT Routine 11/23/2014 3:47 AM Results f or this DIFFERENTIAL, B CDT procedure ar e in the results section. PHOSPHORUS Routine 11/23/2014 3:47 AM Results f or this (INORGANIC), S CDT procedure are in the results section. MAGNESIUM, S Routine 11/23/2014 3:47 AM Results f or this CDT procedure are i n the results section. ABG W/O COOX Routine 11/23/2014 3:47 AM Results f or this CDT procedure are i n the results section. GLUCOSE POCT, B Routine 11/23/2014 1:57 AM Result s for this CDT procedure are i n the results section. SODIUM, RANDOM, U Routine 11/23/2014 1:41 AM Resu lts for this CDT procedure are i n the results section. MICROSCOPIC MANUAL Routine 11/23/2014 1:41 AM Res ults for this CDT procedure are i n the results section. CREATININE, RANDOM, U Routine 11/23/2014 1:41 AM Results for this CDT procedure are i n the results section. URINALYSIS WITH Routine 11/23/2014 1:41 AM Result s for this MICROSCOPIC CDT procedure are i n the results section. ABG W/O COOX Routine 11/23/2014 12:42 Results for this AM CDT procedure are i n the results section. BASIC METABOLIC Routine 11/23/2014 12:42 Results for this PANEL, S/P AM CDT procedure are i n the results section. GLUCOSE POCT, B Routine 11/22/2014 10:17 Results for this PM CDT procedure are i n the results section. ABG W/COOX Routine 11/22/2014 9:53 PM Results f or this CDT procedure are i n the results section. POTASSIUM, S/P Routine 11/22/2014 9:53 PM Results for this CDT procedure are i n the results section. GLUCOSE POCT, B Routine 11/22/2014 9:48 PM Result s for this CDT procedure are i n the results section. CARDIAC BIOMARKER Routine 11/22/2014 9:24 PM Resu lts for this PANEL, S CDT procedure are i n the results section. GLUCOSE POCT, B Routine 11/22/2014 9:20 PM Result s for this CDT procedure are i n the results section. GLUCOSE POCT, B Routine 11/22/2014 8:43 PM Result s for this CDT procedure are i n the results section. GLUCOSE POCT, B Routine 11/22/2014 8:15 PM Result s for this CDT procedure are i n the results section. ECG Routine 11/22/2014 7:48 PM Results f or this CDT procedure are i n the results section. ABG W/COOX Routine 11/22/2014 6:57 PM Results f or this CDT procedure are i n the results section. ELECTROLYTE (CHEM 4) Routine 11/22/2014 4:31 PM R esults for this PANEL, S/P CDT procedure are i n the results section. ABG W/COOX Routine 11/22/2014 4:31 PM Results f or this CDT procedure are i n the results section. CBC WITHOUT Routine 11/22/2014 4:31 PM Results f or this DIFFERENTIAL, B CDT procedure ar e in the results section. PHOSPHORUS Routine 11/22/2014 4:31 PM Results f or this (INORGANIC), S CDT procedure are in the results section. MAGNESIUM, S Routine 11/22/2014 4:31 PM Results f or this CDT procedure are i n the results section. LACTATE, B/P Routine 11/22/2014 4:31 PM Results f or this CDT procedure are i n the results section. CALCIUM, IONIZED, S/B Routine 11/22/2014 4:31 PM Results for this CDT procedure are i n the results section. GLUCOSE POCT, B Routine 11/22/2014 4:21 PM Result s for this CDT procedure are i n the results section. GLUCOSE POCT, B Routine 11/22/2014 3:32 PM Result s for this CDT procedure are i n the results section. GLUCOSE POCT, B Routine 11/22/2014 3:06 PM Result s for this CDT procedure are i n the results section. ABG W/COOX Routine 11/22/2014 2:32 PM Results f or this CDT procedure are i n the results section. GLUCOSE POCT, B Routine 11/22/2014 2:31 PM Result s for this CDT procedure are i n the results section. BASIC METABOLIC Routine 11/22/2014 12:27 Results for this PANEL, S/P PM CDT procedure are i n the results section. ECG Routine 11/22/2014 12:14 Results for this PM CDT procedure are i n the results section. ABG W/O COOX Routine 11/22/2014 12:12 Results for this PM CDT procedure are i n the results section. DX CHEST PORTABLE 1 Routine 11/22/2014 12:05 Resu lts for this VIEW PM CDT procedure are i n the results section. GLUCOSE POCT, B Routine 11/22/2014 11:00 Results for this AM CDT procedure are i n the results section. ELECTROLYTE (CHEM 4) Routine 11/22/2014 9:00 AM R esults for this PANEL, S/P CDT procedure are i n the results section. ABG W/O COOX Routine 11/22/2014 7:15 AM Results f or this CDT procedure are i n the results section. GLUCOSE POCT, B Routine 11/22/2014 6:14 AM Result s for this CDT procedure are i n the results section. ABG W/O COOX Routine 11/22/2014 12:23 Results for this AM CDT procedure are i n the results section. GLUCOSE POCT, B Routine 11/21/2014 10:09 Results for this PM CDT procedure are i n the results section. GLUCOSE POCT, B Routine 11/21/2014 6:10 PM Result s for this CDT procedure are i n the results section. GLUCOSE POCT, B Routine 11/21/2014 2:03 PM Result s for this CDT procedure are i n the results section. GLUCOSE POCT, B Routine 11/21/2014 1:15 PM Result s for this CDT procedure are i n the results section. GLUCOSE POCT, B Routine 11/21/2014 11:46 Results for this AM CDT procedure are i n the results section. GLUCOSE POCT, B Routine 11/21/2014 10:43 Results for this AM CDT procedure are i n the results section. GLUCOSE POCT, B Routine 11/21/2014 9:46 AM Result s for this CDT procedure are i n the results section. GLUCOSE POCT, B Routine 11/21/2014 8:43 AM Result s for this CDT procedure are i n the results section. GLUCOSE POCT, B Routine 11/21/2014 7:26 AM Result s for this CDT procedure are i n the results section. GLUCOSE POCT, B Routine 11/21/2014 6:57 AM Result s for this CDT procedure are i n the results section. documented in this encounter Results Glucose, POCT (11/27/2014 11:59 AM CDT) [facility] Method Time Signature Last Intake 2-3 hours [facility] Glucose, 137 70 - 140 [facility] POCT, B MG/DL LABORATORIES - [facility] Sample Site, Capillary [facility] Blood Gas, LABORATORIES - POCT [facility] Specimen Anatomical Collection Method Collection Time Receive d Time (Source) Location / / Volume Laterality 11/27/2014 11:59 11/27/2014 AM CDT 11:59 AM CDT Historical Provider LAB POCT ORDERABLES-MANUAL Performing Organization Address City/State/ZIP Code Phon e Number [facility] - [address] [place], [place] [address] [facility] Glucose, POCT (11/27/2014 6:26 AM CDT) [facility] Method Time Signature Last Intake > 4 hours [facility] Glucose, 135 70 - 140 [facility] POCT, B MG/DL LABORATORIES - [facility] Sample Site, Capillary [facility] Blood Gas, LABORATORIES - POCT [facility] Specimen Anatomical Collection Method Collection Time Receive d Time (Source) Location / / Volume Laterality 11/27/2014 6:26 AM 5 6:26 CDT AM CDT Historical Provider LAB POCT ORDERABLES-MANUAL Performing Organization Address City/[facility] Phon e Number [facility] - [address] [place] [address] [facility] (ABNORMAL) Glucose, POCT (11/26/2014 10:21 PM CDT) [facility] Method Time Signature Glucose, 144 (H) 70 - 140 [facility] POCT, B MG/DL LABORATORIES - [facility] Sample Site, Capillary [facility] Blood Gas, LABORATORIES - POCT [facility] Last Intake > 4 hours [facility] Specimen Anatomical Collection Method Collection Time Receive d Time (Source) Location / / Volume Laterality 11/26/2014 10:21 11/26/2014 PM CDT 10:21 PM CDT Historical Provider LAB POCT ORDERABLES-MANUAL Performing Organization Address [facility] Phon e Number [facility] - [address] [place] [address] [facility] (ABNORMAL) Glucose, POCT (11/26/2014 5:49 PM CDT) [facility] Method Time Signature Glucose, 167 (H) 70 - 140 [facility] POCT, B MG/DL LABORATORIES - [facility] Sample Site, Capillary [facility] Blood Gas, LABORATORIES - POCT [facility] Last Intake 2-3 hours [facility] Specimen Anatomical Collection Method Collection Time Receive d Time (Source) Location / / Volume Laterality 11/26/2014 5:49 PM 5 5:49 CDT PM CDT Historical Provider LAB POCT ORDERABLES-MANUAL Performing Organization Address City/[facility] Phon e Number [facility] - [address] [place] [address] [facility] (ABNORMAL) Glucose, POCT (11/26/2014 11:48 AM CDT) [facility] Signature Glucose, POCT, 147 (H) 70 - 140 [facility] B MG/DL [facility] - [facility] Specimen Anatomical Collection Method Collection Time Receive d Time (Source) Location / / Volume Laterality 11/26/2014 11:48 11/26/2014 AM CDT 11:48 AM CDT Historical Provider LAB POCT ORDERABLES-MANUAL Performing Organization Address City/[facility] Phon e Number [facility] - [address] [address] [facility] (ABNORMAL) Electrolyte (Chem 4) Panel (11/26/2014 7:18 AM CDT) [facility] Signature Sodium, S 140 135 - 145 [facility] MMOL/L [facility] Potassium, S 4.0 3.6 - 5.2 [facility] MMOL/L [facility] Chloride, S 98 98 - 107 [facility] MMOL/L [facility] - [facility] HX Bicarbonate, 29 22 - 29 [facility] P/S MMOL/L LABORATORIES - [facility] Creatinine 1.1 0.8 - 1.3 [facility] MG/DL LAB[facility]ATORIES - [facility] eGFR >60 >60 [facility] Non-Black/Afric ML/MIN/BSA LABORATORIES - an [place] [facility] eGFR-Black/Afri >60 >60 [facility] can [place] ML/MIN/BSA LABORATORIES - [facility] BUN (Blood Urea 27 (H) 8 - 24 [facility] Nitrogen), S MG/DL [facility]ATORIES - [facility] Anion Gap 13 7 - 15 [facility] - [facility] Glucose, S 139 70 - 140 [facility] MG/DL [facility]ATORIES - [facility] Specimen Anatomical Collection Method Collection Time Receive d Time (Source) Location / / Volume Laterality 11/26/2014 7:18 AM 5 7:18 CDT AM CDT Shane Mendes M.D. LAB BLOOD ADD-ON Performing Organization Address City/[facility]/ZIP Code Phon e Number [facility] - [address] [place] [address] [facility] Magnesium (11/26/2014 7:18 AM CDT) P athologist Signature Magnesium, S 1.8 1.7 - 2.3 [facility] MG/DL [facility]ATORIES - [facility] Specimen Anatomical Collection Method Collection Time Receive d Time (Source) Location / / Volume Laterality 11/26/2014 7:18 AM 5 7:18 CDT AM CDT Shane Mendes M.D. LAB BLOOD ADD-ON Performing Organization Address City/[facility]/ZIP Code Phon e Number [facility] - [address] [place] [address] [facility] Phosphorus Inorganic (11/26/2014 7:18 AM CDT) Analysis Performed At Patho logist Time Signature Phosphorus 2.5 2.5 - 4.5 [facility] (Inorganic), S MG/DL LAB[facility]ATORIES - [facility] Specimen Anatomical Collection Method Collection Time Receive d Time (Source) Location / / Volume Laterality 11/26/2014 7:18 AM 5 7:18 CDT AM CDT Shane Mendes M.D. LAB BLOOD ADD-ON Performing Organization Address City/[facility]/ZIP Code Phon e Number [facility] - [address] [place] [address] [facility] (ABNORMAL) Glucose, POCT (11/26/2014 6:43 AM CDT) [facility] gist Method Time Signature Last Intake > 4 hours [facility] Glucose, 145 (H) 70 - 140 [facility] POCT, B MG/DL LABORATORIES - [facility] Sample Site, Capillary [facility] Blood Gas, LABORATORIES - POCT [facility] Specimen Anatomical Collection Method Collection Time Receive d Time (Source) Location / / Volume Laterality 11/26/2014 6:43 AM 5 6:43 CDT AM CDT Historical Provider LAB POCT ORDERABLES-MANUAL Performing Organization Address City/[facility]/ZIP Code Phon e Number [facility] - [address] [place], [place] [address] [facility] (ABNORMAL) Glucose, POCT (11/25/2014 9:56 PM CDT) [facility] Method Time Signature Last Intake 2-3 hours [facility] Glucose, 145 (H) 70 - 140 [facility] POCT, B MG/DL LABORATORIES - [facility] Sample Site, Capillary [facility] Blood Gas, LABORATORIES - POCT [facility] Specimen Anatomical Collection Method Collection Time Receive d Time (Source) Location / / Volume Laterality 11/25/2014 9:56 PM 5 9:56 CDT PM CDT Historical Provider LAB POCT ORDERABLES-MANUAL Performing Organization Address City/State/ZIP Code Phon e Number [facility] - [address] [place], [place] [address] [facility] (ABNORMAL) Glucose, POCT (11/25/2014 5:35 PM CDT) [facility] Method Time Signature Glucose, 207 (H) 70 - 140 [facility] POCT, B MG/DL LABORATORIES [facility] Sample Site, Capillary [facility] Blood Gas, LABORATORIES - POCT [facility] Last Intake 2-3 hours [facility] Specimen Anatomical Collection Method Collection Time Receive d Time (Source) Location / / Volume Laterality 11/25/2014 5:35 PM 5 5:35 CDT PM CDT Historical Provider LAB POCT ORDERABLES-MANUAL Performing Organization Address City/State/ZIP Code Phon e Number [facility] - [address] [place], [place] [address] [facility] (ABNORMAL) Glucose, POCT (11/25/2014 2:47 PM CDT) [facility] Method Time Signature Glucose, POCT, 189 (H) 70 - 140 [facility] B MG/DL LABORATORIES - [facility] Last Intake 3-4 hours [facility] Specimen Anatomical Collection Method Collection Time Receive d Time (Source) Location / / Volume Laterality 11/25/2014 2:47 PM 5 2:47 CDT PM CDT Historical Provider LAB POCT ORDERABLES-MANUAL Performing Organization Address City/[facility] Code Phon e Number [facility] - [address] [place], [place] [address] [facility] (ABNORMAL) Glucose, POCT (11/25/2014 6:40 AM CDT) [facility] Time Signature Glucose, 158 (H) 70 - 140 [facility] POCT, B MG/DL LABORATORIES - [facility] Sample Site, Capillary [facility] Blood Gas, LABORATORIES - POCT [facility] Last Intake > 4 hours [facility] Specimen Anatomical Collection Method Collection Time Receive d Time (Source) Location / / Volume Laterality 11/25/2014 6:40 AM 5 6:40 CDT AM CDT Historical Provider LAB POCT ORDERABLES-MANUAL Performing Organization Address City/State/[facility] Code Phon e Number [facility] - [address] [place], [place] [address] [facility] (ABNORMAL) CBC with Differential (11/25/2014 4:09 AM CDT) [facility] Signature Hemoglobin 14.7 13.5 - [facility] 17.5 G/DL [facility] Hematocrit 46.3 38.8 - [facility] 50.0 % [facility] RBC Distrib 15.8 (H) 11.8 - [facility] Width 15.6 % [facility] Platelet Count 168 150 - 450 [facility] X10(9)/L [facility] Lymphocytes 1.42 0.90 - [facility] 2.90 LABORATORIES - X10(9)/L [facility] Monocytes 1.43 (H) 0.30 - [facility] 0.90 LABORATORIES - X10(9)/L [facility] Erythrocytes 5.09 4.32 - [facility] 5.72 LABORATORIES - X10(12)/L [facility] MCV 91.0 81.2 - [facility] 95.1 FL LABORATORIES - [facility] Leukocytes 11.2 (H) 3.5 - [facility] 10.5 LABORATORIES - X10(9)/L [facility] Neutrophils 8.00 (H) 1.70 - [facility] 7.00 LABORATORIES - X10(9)/L [facility] Eosinophils 0.34 0.05 - [facility] 0.50 LABORATORIES - X10(9)/L [facility] Basophils 0.04 0.00 - [facility] 0.30 LABORATORIES - X10(9)/L [facility] Specimen Anatomical Collection Method Collection Time Receive d Time (Source) Location / / Volume Laterality 11/25/2014 4:09 AM 5 4:09 CDT AM CDT Berkley Kaufman M.D. LAB BLOOD ADD-ON Performing Organization Address City/State/ZIP Code Phon e Number [facility] - [address] [place], [place] [address] [facility] (ABNORMAL) Electrolyte (Chem 4) Panel (11/25/2014 4:09 AM CDT) [facility] gist Method Time Signature Chloride, S 100 98 - 107 [facility] MMOL/L LABORATORIES [facility] HX Bicarbonate, 30 (H) 22 - 29 [facility] P/S MMOL/L LABORATORIES [facility] eGFR-Black/Afri >60 >60 [facility] can [place] ML/MIN/BS LABORATORIES - A [facility] BUN (Blood Urea 35 (H) 8 - 24 [facility] Nitrogen), S MG/DL LABORATORIES [facility] Sodium, S 142 135 - 145 [facility] MMOL/L [facility] Potassium, S 4.7 3.6 - 5.2 [facility] MMOL/L [facility] Creatinine 1.2 0.8 - 1.3 [facility] MG/DL LABORATORIES - [facility] eGFR >60 >60 [facility] Non-Black/Afric ML/MIN/BS LABORATORIES - an [place] A [facility] Anion Gap 12 7 - 15 [facility]ATORIES - [facility] Glucose, S 152 (H) 70 - 140 [facility] MG/DL LABORATORIES - [facility] Specimen Anatomical Collection Method Collection Time Receive d Time (Source) Location / / Volume Laterality 11/25/2014 4:09 AM 5 4:09 CDT AM CDT Berkley Kaufman M.D. LAB BLOOD ADD-ON Performing Organization Address City/[facility]/ZIP Code Phon e Number [facility]IES - [address] [address] [facility] (ABNORMAL) Phosphorus Inorganic (11/25/2014 4:09 AM CDT) [facility] Method Time Signature Phosphorus 1.8 (L) 2.5 - 4.5 [facility] (Inorganic), S MG/DL LABORATORIES - [facility] Specimen Anatomical Collection Method Collection Time Receive d Time (Source) Location / / Volume Laterality 11/25/2014 4:09 AM 5 4:09 CDT AM CDT Berkley Kaufman M.D. LAB BLOOD ADD-ON Performing Organization Address City/[facility] Phon e Number [facility] - [address] [address] [facility] (ABNORMAL) Glucose, POCT (11/25/2014 1:39 AM CDT) [facility] Method Time Signature Glucose, 147 (H) 70 - 140 [facility] POCT, B MG/DL LABORATORIES - [facility] Sample Site, Capillary [facility] Blood Gas, LABORATORIES - POCT [facility] Last Intake > 4 hours [facility] - [facility] Specimen Anatomical Collection Method Collection Time Receive d Time (Source) Location / / Volume Laterality 11/25/2014 1:39 AM 5 1:39 CDT AM CDT Historical Provider LAB POCT ORDERABLES-MANUAL Performing Organization Address City/[facility] Phon e Number [facility] - [address] [address] [facility] (ABNORMAL) Glucose, POCT (11/24/2014 7:34 PM CDT) [facility] Method Time Signature Glucose, POCT, 194 (H) 70 - 140 [facility] B MG/DL LABORATORIES - [facility] Sample Site, ARTLINE [facility] Blood Gas, LABORATORIES - POCT [facility] Specimen Anatomical Collection Method Collection Time Receive d Time (Source) Location / / Volume Laterality 11/24/2014 7:34 PM 5 7:34 CDT PM CDT Historical Provider LAB POCT ORDERABLES-MANUAL Performing Organization Address City/[facility]/ZIP Code Phon e Number [facility] - [address] [place], [place] [address] [facility] (ABNORMAL) Glucose, POCT (11/24/2014 1:21 PM CDT) Patholo gist Method Time Signature Glucose, POCT, 199 (H) 70 - 140 [facility] B MG/DL LABORATORIES - [facility] Sample Site, ARTLINE [facility] Blood Gas, LABORATORIES - POCT [facility] Specimen Anatomical Collection Method Collection Time Receive d Time (Source) Location / / Volume Laterality 11/24/2014 1:21 PM 5 1:21 CDT PM CDT Historical Provider LAB POCT ORDERABLES-MANUAL Performing Organization Address City/[facility]/ZIP Code Phon e Number [facility] - [address] [address] [facility] Phosphorus Inorganic (11/24/2014 6:50 AM CDT) Analysis Performed At Patho logist Time Signature Phosphorus 2.5 2.5 - 4.5 [facility] (Inorganic), S MG/DL LABORATORIES - [facility] Specimen Anatomical Collection Method Collection Time Receive d Time (Source) Location / / Volume Laterality 11/24/2014 6:50 AM 5 6:50 CDT AM CDT Eric Hess M.D. LAB BLOOD ADD-ON Performing Organization Address City/[facility]/ZIP Code Phon e Number [facility] - [address] [place], [place] [address] [facility] Magnesium (11/24/2014 6:50 AM CDT) P athologist Signature Magnesium, S 2.0 1.7 - 2.3 [facility] MG/DL LABORATORIES - [facility] Specimen Anatomical Collection Method Collection Time Receive d Time (Source) Location / / Volume Laterality 11/24/2014 6:50 AM 5 6:50 CDT AM CDT Eric Hess M.D. LAB BLOOD ADD-ON Performing Organization Address City/State/ZIP Code Phon e Number [facility] - [address] [place], [place] [address] [facility] PT (Prothrombin Time) with INR (11/24/2014 6:50 AM CDT) [facility] [place] Method Time Signature Prothrombin 12.8 9.5 - 13.8 [facility] Time, P SEC [facility] INR 1.1 0.8 - 1.2 [facility] Specimen Anatomical Collection Method Collection Time Receive d Time (Source) Location / / Volume Laterality 11/24/2014 6:50 AM 5 6:50 CDT AM CDT Eric Hess M.D. LAB BLOOD ADD-ON Performing Organization Address City/[facility]/ZIP Code Phon e Number [facility] - [address] [place], [place] [address] [facility] (ABNORMAL) Blood Gas with Coox, Arterial (11/24/2014 6:50 AM CDT) [facility] [place] Method Time Signature Device NCPAP [facility] Spont. 22 [facility] breaths/min [facility] pO2 117 (H) 80 - 100 [facility] MM HG [facility] pCO2 56 (H) 35 - 45 [facility] MM HG [facility] pH 7.34 (L) 7.35 - [facility] 7.45 PH [facility] Base Excess 4 (H) -2 - 2 [facility] MMOL/L [facility] O2Hb 95.7 94.0 - [facility] 98.0 % [facility] COHb 1.7 <3.0 % [facility] Arterial Art Line [facility] Sample Site [facility] FIO2 0.60 .21=AIR [facility] HCO3 30 (H) 22 - 26 [facility] MMOL/L [facility] Hb 14.6 13.5 - [facility] 17.5 G/DL [facility] MetHb 1.0 <1.6 % [facility] CtO2 19.8 (L) 21.0 - [facility] 23.0 VOL [facility] Specimen Anatomical Collection Method Collection Time Receive d Time (Source) Location / / Volume Laterality 11/24/2014 6:50 AM 5 6:50 CDT AM CDT Eric Hess M.D. LAB BLOOD NON ADD-ON Performing Organization Address City/[facility]/ZIP Code Phon e Number [facility] - [address] [address] [facility] (ABNORMAL) CBC without Differential (11/24/2014 6:50 AM CDT) [facility] Method Time Signature Leukocytes 11.4 (H) 3.5 - [facility] 10.5 LABORATORIES - X10(9)/L [facility] Hemoglobin 14.0 13.5 - [facility] 17.5 G/DL LABORATORIES - [facility] MCV 90.5 81.2 - [facility] 95.1 FL LABORATORIES - [facility] RBC Distrib 16.1 (H) 11.8 - [facility] Width 15.6 % LABORATORIES - [facility] Platelet Count 146 (L) 150 - 450 [facility] X10(9)/L LABORATORIES - [facility] Hematocrit 44.6 38.8 - [facility] 50.0 % LABORATORIES - [facility] Erythrocytes 4.93 4.32 - [facility] 5.72 LABORATORIES - X10(12)/L [facility] Specimen Anatomical Collection Method Collection Time Receive d Time (Source) Location / / Volume Laterality 11/24/2014 6:50 AM 5 6:50 CDT AM CDT Eric Hess M.D. LAB BLOOD ADD-ON Performing Organization Address City/State/ZIP Code Phon e Number [facility] - [address] [address] [facility] Calcium, Ionized (11/24/2014 6:50 AM CDT) athologist Signature Calcium, 5.07 4.65 - [facility] Ionized, B 5.30 MG/DL [facility] - [facility] Specimen Anatomical Collection Method Collection Time Receive d Time (Source) Location / / Volume Laterality 11/24/2014 6:50 AM 5 6:50 CDT AM CDT Eric Hess M.D. LAB BLOOD NON ADD-ON Performing Organization Address City/State/ZIP Code Phon e Number [facility] - [address] [address] [facility] (ABNORMAL) Electrolyte (Chem 4) Panel (11/24/2014 6:50 AM CDT) [facility] Method Time Signature Chloride, S 102 98 - 107 [facility] MMOL/L LABORATORIES - [facility] HX Bicarbonate, 27 22 - 29 [facility] P/S MMOL/L LABORATORIES - [facility] eGFR-Black/Afri >60 >60 [facility] can Sammar[place] ML/MIN/BS LABORATORIES - A [facility] BUN (Blood Urea 47 (H) 8 - 24 [facility] Nitrogen), S MG/DL LABORATORIES - [facility] Sodium, S 142 135 - 145 [facility] MMOL/L LABORATORIES - [facility] Potassium, S 4.8 3.6 - 5.2 [facility] MMOL/L LABORATORIES - [facility] Creatinine 1.4 (H) 0.8 - 1.3 [facility] MG/DL LABORATORIES - [facility] eGFR 52 (L) >60 [facility] Non-Black/Afric ML/MIN/BS LABORATORIES - an Sammar[place] A [facility] Anion Gap 13 7 - 15 [facility]ATORIES - [facility] Glucose, S 132 70 - 140 [facility] MG/DL LABORATORIES - [facility] Specimen Anatomical Collection Method Collection Time Receive d Time (Source) Location / / Volume Laterality 11/24/2014 6:50 AM 5 6:50 CDT AM CDT Eric Hess M.D. LAB BLOOD ADD-ON Performing Organization Address City/State/ZIP Code Phon e Number [facility] - [address] [place] [address] [facility] Glucose, POCT (11/24/2014 6:49 AM CDT) P athologist Signature Glucose, POCT, 137 70 - 140 [facility] B MG/DL LABORATORIES - [facility] Sample Site, ARTL [facility] Blood Gas, LABORATORIES - POCT [facility] Specimen Anatomical Collection Method Collection Time Receive d Time (Source) Location / / Volume Laterality 11/24/2014 6:49 AM 5 6:49 CDT AM CDT Historical Provider LAB POCT ORDERABLES-MANUAL Performing Organization Address City/[facility]/ZIP [facility] Phon e Number [facility] - [address] [place] [address] [facility] (ABNORMAL) Blood Gas with Coox, Arterial (11/24/2014 2:50 AM CDT) Patholo gist Method Time Signature Arterial Art Line [facility] Sample Site LABORATORIES - [facility] O2 Flow 4.0 L/MIN [facility] LABORATORIES - [facility] pO2 53 (L) 80 - 100 [facility] MM HG LABORATORIES [facility] pCO2 51 (H) 35 - 45 [facility] MM HG LABORATORIES [facility] HCO3 28 (H) 22 - 26 [facility] MMOL/L LABORATORIES [facility] Hb 14.7 13.5 - [facility] 17.5 G/DL [facility] MetHb <1.0 <1.6 % [facility] LABORATORIES [facility] CtO2 17.5 (L) 21.0 - [facility] 23.0 VOL LABORATORIES - % [facility] Device NC [facility] LABORATORIES - [facility] Spont. 19 [facility] breaths/min LABORATORIES [facility] pH 7.36 7.35 - [facility] 7.45 PH [facility] Base Excess 3 (H) -2 - 2 [facility] MMOL/L [facility] O2Hb 84.6 (L) 94.0 - [facility] 98.0 % [facility] COHb 1.6 <3.0 % [facility] LABORATORIES [facility] Specimen Anatomical Collection Method Collection Time Receive d Time (Source) Location / / Volume Laterality 11/24/2014 2:50 AM 5 2:50 CDT AM CDT Kemal Heredia M.D. LAB BLOOD NON ADD-ON Performing Organization Address City/State/ZIP Code Phon e Number [facility] - [address] [address] [facility] Glucose, POCT (11/24/2014 2:49 AM CDT) Patholo gist Method Time Signature Glucose, POCT, 135 70 - 140 [facility] B MG/DL LABORATORIES [facility] Sample Site, ARTLINE [facility] Blood Gas, LABORATORIES - POCT [facility] Specimen Anatomical Collection Method Collection Time Receive d Time (Source) Location / / Volume Laterality 11/24/2014 2:49 AM 5 2:49 CDT AM CDT Historical Provider LAB POCT ORDERABLES-MANUAL Performing Organization Address City/[facility] Phon e Number [facility] - [address] [place] [address] [facility] Glucose, POCT (11/23/2014 7:05 PM CDT) P athologist Signature Glucose, POCT, 133 70 - 140 [facility] B MG/DL LABORATORIES [facility] Specimen Anatomical Collection Method Collection Time Receive d Time (Source) Location / / Volume Laterality 11/23/2014 7:05 PM 5 7:05 CDT PM CDT Historical Provider LAB POCT ORDERABLES-MANUAL Performing Organization Address City/[facility]/ZIP Code Phon e Number [facility]IES - [address] [place] [address] [facility] (ABNORMAL) Blood Gas without Coox, Arterial (11/23/2014 3:35 PM CDT) Patholo gist Method Time Signature Device NC [facility] Spont. 16 [facility] breaths/min [facility] pO2 74 (L) 80 - 100 [facility] MM HG [facility] pCO2 48 (H) 35 - 45 [facility] MM HG [facility] HCO3 27 (H) 22 - 26 [facility] MMOL/L [facility] Arterial Art Line [facility] Sample Site [facility] O2 Flow 4.0 L/MIN [facility] pH 7.37 7.35 - [facility] 7.45 PH [facility] Base Excess 2 -2 - 2 [facility] MMOL/L [facility] Specimen Anatomical Collection Method Collection Time Receive d Time (Source) Location / / Volume Laterality 11/23/2014 3:35 PM 5 3:35 CDT PM CDT Danni Bran APRN C.N.P., M.S., R.N. LAB BLOO D NON ADD-ON Performing Organization Address City/[facility]/ZIP Code Phon e Number [facility]IES - [address] [address] [facility] (ABNORMAL) Cardiac Biomarker Panel (11/23/2014 3:35 PM CDT) Analysis Performed At Patho logist Time Signature Delta Interp Not Sig [facility] Comment: No significant delta observed. Troponin Delta 0.00 NG/ML [facility] Troponin Delta -0.01 NG/ML [facility] Troponin T, S 0.04 (H) <0.01 NG/ML [facility] Troponin T 3H, S 0.04 (H) <0.01 NG/ML [facility] Troponin T 6H, S 0.03 (H) <0.01 NG/ML [place] [facility] LABORATORIES [facility] Delta Interp Not Sig [facility] LABOR ATORIES - [facility] Comment: No significant delta observed. Specimen Anatomical Collection Method Collection Time Receive d Time (Source) Location / / Volume Laterality 11/23/2014 3:35 PM 5 3:35 CDT PM CDT Danni Bran APRN, C.N.P., M.S., R.N. LAB BLOO D ADD-ON Performing Organization Address City/[facility]/ZIP Code Phon e Number [facility] LAB[facility]IES - [address] [place], [place] [address] [facility] (ABNORMAL) Electrolyte (Chem 4) Panel (11/23/2014 3:35 PM CDT) [facility] Method Time Signature Chloride, S 100 98 - 107 [facility] MMOL/L LABORATORIES [facility] HX Bicarbonate, 25 22 - 29 [facility] P/S MMOL/L LABORATORIES [facility] eGFR-Black/Afri 40 (L) >60 [facility] can [place] ML/MIN/BS LABORATORIES - A [facility] BUN (Blood Urea 54 (H) 8 - 24 [facility] Nitrogen), S MG/DL [facility] Sodium, S 141 135 - 145 [facility] MMOL/L [facility] Potassium, S 4.7 3.6 - 5.2 [facility] MMOL/L [facility] Creatinine 2.1 (H) 0.8 - 1.3 [facility] MG/DL [facility] eGFR 33 (L) >60 [facility] Non-Black/Afric ML/MIN/BS LABORATORIES - an [place] A [facility] Anion Gap 16 (H) 7 - 15 [facility] LABORATORIES [facility] Glucose, S 123 70 - 140 [facility] MG/DL LABORATORIES - [facility] Specimen Anatomical Collection Method Collection Time Receive d Time (Source) Location / / Volume Laterality 11/23/2014 3:35 PM 5 3:35 CDT PM CDT Danni Bran APRN, C.N.P., M.S., R.N. LAB BLOO D ADD-ON Performing Organization Address City/[facility]/ZIP Code Phon e Number [facility] LABORATORIES - [address] [facility] [place], [place] [address] [facility] Glucose, POCT (11/23/2014 3:30 PM CDT) [facility] Method Time Signature Glucose, POCT, 120 70 - 140 [facility] B MG/DL LABORATORIES - [facility] Sample Site, [facility] Blood Gas, LABORATORIES - POCT [facility] Specimen Anatomical Collection Method Collection Time Receive d Time (Source) Location / / Volume Laterality 11/23/2014 3:30 PM 5 3:30 CDT PM CDT Historical Provider LAB POCT ORDERABLES-MANUAL Performing Organization Address City/[facility]/ZIP Code Phon e Number [facility] LABORATORIES - [address] [place], [place] [address] [facility] ECG 12 Lead (11/23/2014 2:47 PM CDT) Specimen (Source) Anatomical Collection Method Collection Time Re ceived Time Location / / Volume Laterality 11/23/2014 2:47 PM CDT [facility]IOLOGY SYSTEM - 11/24/2014 11:10 AM CDT 23Nov2014 14:47 VENTRICULAR RATE 62 Atrial flutter with variable A-V block Right bundle branch block When compared with ECG of 22-NOV-2014 19 :48, No significant change was found [id number]^ANA LUISA ?^[facility] Procedure Note Kaiser Skaggs Jr., M.D. - 11/27/2017For matting of this note might be different from the original. 23Nov2014 14:47 VENTRICULAR RATE 62 Atrial flutter with variable A-V block Right bundle branch block When compared with ECG of 22-NOV-2014 19 :48, No significant change was found [id number]^ANA LUISA PALOMO MD^[facility] Kemal Heredia M.D. ECG ORDERABLES Performing Organization Address City/State/ZIP Code Phon e Number [facility] [address] [place] [address], [place] Glucose, POCT (11/23/2014 7:46 AM CDT) [facility] Method Time Signature Glucose, POCT, 97 70 - 140 [facility] B MG/DL LABORATORIES - [facility] Sample Site, [facility] Blood Gas, LABORATORIES - POCT [facility] Specimen Anatomical Collection Method Collection Time Receive d Time (Source) Location / / Volume Laterality 11/23/2014 7:46 AM 5 7:46 CDT AM CDT Historical Provider LAB POCT ORDERABLES-MANUAL Performing Organization Address City/State/ZIP Code Phon e Number [facility] LABORATORIES - [address] [place], [place] [address] [facility] DX Chest Portable 1 View (11/23/2014 6:16 AM CDT) Anatomical Region Laterality Modality Chest N/A Radiographic Imaging Specimen (Source) Anatomical Collection Method Collection Time Re ceived Time Location / / Volume Laterality 11/23/2014 6:16 AM CDT Impressions 11/23/2014 6:21 AM CDT No change since yesterday. Atelectasis in both bases. Shallow inspiration. Electronically signed by: ?? Juice Tomas MD. ??[id number] 23-Nov-2014 06: 21 Narrative 11/23/2014 6:21 AM CDT 23-Nov-2014 06:16:00 ??Exam: Portable-Chest Indications: compare. resp insufficiency requiring bipap,eval atelectasis, fluid overload ORIGINAL REPORT - 23-Nov-2014 06:21:00 Chest; 1 view: Procedure Note Winston Tomas M.D. - 12/03/2017Formatti ng of this note might be different from the original. 23-Nov-2014 06:16:00 Exam: Portable-Ches t Indications: compare. resp insufficiency requiring bipap,eval atelectasis, fluid overload ORIGINAL REPORT - 23-Nov-2014 06:21:00 Chest; 1 view: IMPRESSION: No change since yesterday. A telectasis in both bases. Shallow inspiration. Electronically signed by: Juice Tomas MD. [id number] 23-Nov-2014 06:21 Radha Peña APRN, C.N.P. IMG DIAGNOSTIC IMAGING PROCEDURES (ABNORMAL) CBC without Differential (11/23/2014 3:47 AM CDT) P athologist Signature Hemoglobin 14.1 13.5 - 17.5 [facility] G/DL [facility] Comment: Drawn From Arterial Line Hematocrit 45.5 38.8 - 50.0 % [facility] Comment: Drawn From Arterial Line RBC Distrib Width 16.4 (H) 11.8 - 15.6 % [place] [facility] Comment: Drawn From Arterial Line Platelet Count 150 150 - 450 X10(9)/L [facility] Comment: Drawn From Arterial Line Leukocytes 15.1 (H) 3.5 - 10.5 X10(9)/L [facility] IC [facility] Comment: Drawn From Arterial Line Erythrocytes 4.89 4.32 - 5.72 X10(12)/L [facility] Comment: Drawn From Arterial Line MCV 93.0 81.2 - 95.1 FL [facility] Comment: Drawn From Arterial Line Specimen Anatomical Collection Method Collection Time Receive d Time (Source) Location / / Volume Laterality 11/23/2014 3:47 AM 5 3:47 CDT AM CDT Narrative [facility] - 11/23/2014 4:13 AM CDT Drawn From Arterial Line Kemal Heredia M.D. LAB BLOOD ADD-ON Performing Organization Address City/State/ZIP Code Phon e Number [facility] - [address] [place] [address] [facility] (ABNORMAL) Blood Gas without Coox, Arterial (11/23/2014 3:47 AM CDT) [facility] Method Time Signature Arterial Art Line [facility] Sample Site [facility] Comment: Drawn From Arterial Line FIO2 0.35 .21=AIR [facility] Comment: Drawn From Arterial Line pO2 129 (H) 80 - 100 MM HG [facility] Comment: Drawn From Arterial Line pCO2 59 (H) 35 - 45 MM [facility] Comment: Drawn From Arterial Line pH 7.30 (L) 7.35 - 7.45 PH [facility] Comment: Drawn From Arterial Line Base Excess 2 -2 - 2 MMOL/L [facility] LA [facility] Comment: Drawn From Arterial Line Device BPAP [facility] Comment: Drawn From Arterial Line Spont. breaths/min 12 [facility] Comment: Drawn From Arterial Line HCO3 28 (H) 22 - 26 MMOL/L [facility] ([facility] Comment: Drawn From Arterial Line Specimen Anatomical Collection Method Collection Time Receive d Time (Source) Location / / Volume Laterality 11/23/2014 3:47 AM 5 3:47 CDT AM CDT Narrative [facility] - 11/23/2014 4:04 AM CDT Drawn From Arterial Line Kemal Heredia M.D. LAB BLOOD NON ADD-ON Performing Organization Address City/State/ZIP Code Phon e Number [facility] - [address] [place], [place] [phone] [facility] (ABNORMAL) Electrolyte (Chem 4) Panel (11/23/2014 3:47 AM CDT) P athologist Signature Sodium, S 140 135 - 145 [facility] MMOL/L [facility] Comment: Drawn From Arterial Line Potassium, S 4.9 3.6 - 5.2 MMOL/L [facility] Comment: Drawn From Arterial Line Creatinine 2.6 (H) 0.8 - 1.3 MG/DL [facility] Comment: Drawn From Arterial Line eGFR Non-Black/ 26 (L) >60 ML/MIN/BSA [facility] S Comment: Drawn From Arterial Line eGFR-Black/ 31 (L) >60 ML/MIN/BSA [facility] S Comment: Drawn From Arterial Line BUN (Blood Urea Nitrogen), S 58 (H) 8 - 24 MG/DL [facility] S Comment: Drawn From Arterial Line Chloride, S 99 98 - 107 MMOL/L [facility] Comment: Drawn From Arterial Line HX Bicarbonate, P/S 26 22 - 29 MMOL/L M [facility] Comment: Drawn From Arterial Line Anion Gap 15 7 - 15 [facility]ATO PAPI [facility] Comment: Drawn From Arterial Line Glucose, S 84 70 - 140 MG/DL [facility] LA [facility] Comment: Drawn From Arterial Line Specimen Anatomical Collection Method Collection Time Receive d Time (Source) Location / / Volume Laterality 11/23/2014 3:47 AM 5 3:47 CDT AM CDT Narrative [facility] - 11/23/2014 4:48 AM CDT Drawn From Arterial Line Kemal Heredia M.D. LAB BLOOD ADD-ON Performing Organization Address City/State/ZIP Code Phon e Number [facility] - [address] [address] [facility] (ABNORMAL) Phosphorus Inorganic (11/23/2014 3:47 AM CDT) Patholo gist Method Time Signature Phosphorus 5.3 (H) 2.5 - 4.5 [facility] (Inorganic), S MG/DL [facility] Comment: Drawn From Arterial Line Specimen Anatomical Collection Method Collection Time Receive d Time (Source) Location / / Volume Laterality 11/23/2014 3:47 AM 5 3:47 CDT AM CDT Narrative [facility] - 11/23/2014 4:48 AM CDT Drawn From Arterial Line Kemal Heredia M.D. LAB BLOOD ADD-ON Performing Organization Address City/[facility]/ZIP Code Phon e Number [facility] - [address] [address] [facility] Magnesium (11/23/2014 3:47 AM CDT) P athologist Signature Magnesium, S 2.0 1.7 - 2.3 [facility] MG/DL [facility] Comment: Drawn From Arterial Line Specimen Anatomical Collection Method Collection Time Receive d Time (Source) Location / / Volume Laterality 11/23/2014 3:47 AM 5 3:47 CDT AM CDT Narrative [facility] - 11/23/2014 4:48 AM CDT Drawn From Arterial Line Kemal Heredia M.D. LAB BLOOD ADD-ON Performing Organization Address City/State/ZIP Code Phon e Number [facility] - [address] [address] [facility] Potassium, Blood (11/23/2014 3:47 AM CDT) P athologist Signature Potassium, B 4.5 3.6 - 5.2 [facility] MMOL/L [facility] Comment: Drawn From Arterial Line Specimen Anatomical Collection Method Collection Time Receive d Time (Source) Location / / Volume Laterality 11/23/2014 3:47 AM 5 3:47 CDT AM CDT Narrative [facility] - [facility] - 11/23/2014 4:04 AM CDT Drawn From Arterial Line Kemal Heredia M.D. LAB BLOOD NON ADD-ON Performing Organization Address City/[facility]/ZIP Code Phon e Number [facility] LABORATORIES - [address] [address] [facility] Glucose, POCT (11/23/2014 1:57 AM CDT) [facility] Method Time Signature Glucose, POCT, 97 70 - 140 [facility] B MG/DL LABORATORIES - [facility] Sample Site, ARTLINE [facility] Blood Gas, LABORATORIES - POCT [facility] Specimen Anatomical Collection Method Collection Time Receive d Time (Source) Location / / Volume Laterality 11/23/2014 1:57 AM 5 1:57 CDT AM CDT Historical Provider LAB POCT ORDERABLES-MANUAL Performing Organization Address City/[facility] Phon e Number [facility] LABORATORIES - [address] [address] [facility] (ABNORMAL) Microscopic Manual (11/23/2014 1:41 AM CDT) [facility] Method [place] Signature Microscopy Abnormal [facility] LABORATORIES [facility] Blood <3 <3 /HPF [facility] WBC 4-10 (A) 1-3 [facility] (Males); LABORATORIES - 1-10 [facility] (Females) CAMPUS /HPF Casts, Hyaline 4-10 /LPF [facility] LABORATORIES [facility] Squamous 1-3 /HPF [facility] Epithelial LABORATORIES - [facility] Specimen Anatomical Collection Method Collection Time Receive d Time (Source) Location / / Volume Laterality 11/23/2014 1:41 AM 5 1:41 CDT AM CDT Berkley Kaufman M.D. LAB URINE ORDERABLES Performing Organization Address City/[facility]/ZIP [facility] Phon e Number [facility] LABORATORIES - [address] [address] [facility] Sodium, Random, Urine (11/23/2014 1:41 AM CDT) [facility] Method [place] Signature Sodium, 28 Interpret [facility] Random, U with other; LABORATORIES - clinical [facility]. MMOL/L CAMPUS Specimen Anatomical Collection Method Collection Time Receive d Time (Source) Location / / Volume Laterality 11/23/2014 1:41 AM 5 1:41 CDT AM CDT Berkley Kaufman M.D. LAB URINE ORDERABLES Performing Organization Address City/State/ZIP Code Phon e Number [facility] LABORATORIES - [address] [place], [place] [address] [facility] (ABNORMAL) Urinalysis with Microscopic (11/23/2014 1:41 AM CDT) athologist Signature Source . [facility] Comment: Munoz Catheter Appearance Normal Normal [facility] Glucose 4 0 - 15 MG/DL [facility] ATORIES [facility] Protein, U 29 (H) <22 MG/DL [facility] Comment: ? ADDITIONAL INFORMATIO N ? On 03/20/2014 the total protein assay me thod changed resulting ? in approximately a 20% increase in prote in values. ? Osmolality, 24 HR, U 450 150 - 1150 MOSM/KG [facility] S pH, 24 HR, U 4.5 4.5 - 8.0 [facility] LABOR ATORIES [facility] S Protein/Osmolality 0.64 (H) <0.27 R[facility]IO [facility] Comment: ? ADDITIONAL INFORMATIO N ? On 03/20/2014 the total protein assay me thod changed resulting ? in approximately a 20% increase in prote in values. ? Predicted 24 Hr Protein 620 MG/24 H [facility] Predicted Range 197-1952 MG/24 H [facility] Hemoglobin, QL Negative Negative [facility] Specimen Anatomical Collection Method Collection Time Receive d Time (Source) Location / / Volume Laterality 11/23/2014 1:41 AM 5 1:41 CDT AM CDT Berkley Kaufman M.D. LAB URINE ORDERABLES Performing Organization Address City/[facility]/ZIP Code Phon e Number [facility] LABORATORIES - [address] [address] [facility] Creatinine, Random, Urine (11/23/2014 1:41 AM CDT) [email or web address] Method Time Signature Creatinine, 169 Used to [facility] Random, U normalize LABORATORIES - other; [facility] values. MG/DL CAMPUS Specimen Anatomical Collection Method Collection Time Receive d Time (Source) Location / / Volume Laterality 11/23/2014 1:41 AM 5 1:41 CDT AM CDT Berkley Kaufman M.D. LAB URINE ORDERABLES Performing Organization Address City/[facility] Phon e Number [facility] LABORATORIES - [address] [address] [facility] (ABNORMAL) Blood Gas without Coox, Arterial (11/23/2014 12:42 AM CDT) [email or web address] Method Time Signature Arterial Art Line [facility] Sample Site [facility] Comment: Drawn From Arterial Line FIO2 0.35 .21=AIR [facility] Comment: Drawn From Arterial Line Device BPAP [facility] Comment: Drawn From Arterial Line Spont. breaths/min 16 [facility] Comment: Drawn From Arterial Line pO2 113 (H) 80 - 100 MM HG [facility] Comment: Drawn From Arterial Line pCO2 62 (H) 35 - 45 MM HG [facility] Comment: Drawn From Arterial Line pH 7.28 (L) 7.35 - 7.45 PH [facility] Comment: Drawn From Arterial Line Base Excess 2 -2 - 2 MMOL/L [facility] Comment: Drawn From Arterial Line HCO3 28 (H) 22 - 26 MMOL/L [facility] Comment: Drawn From Arterial Line Specimen Anatomical Collection Method Collection Time Receive d Time (Source) Location / / Volume Laterality 11/23/2014 12:42 11/23/2014 AM CDT 12:42 AM CDT Narrative [facility] - 11/23/2014 12:54 AM CDT Drawn From Arterial Line Ernestina Tao M.D. LAB BLOOD NON ADD-ON Performing Organization Address City/State/ZIP Code Phon e Number [facility] - [address] [address] [facility] (ABNORMAL) BMP (Basic Metabolic Panel) (11/23/2014 12:42 AM CDT) P athologist Signature Sodium, P 140 135 - 145 [facility] MMOL/L [facility] Comment: Drawn From Arterial Line Potassium, P 4.9 3.6 - 5.2 MMOL/L [facility] Comment: Drawn From Arterial Line eGFR Non-Black/ 24 (L) >60 ML/MIN/BSA [facility] S Comment: Drawn From Arterial Line eGFR-Black/ 29 (L) >60 ML/MIN/BSA [facility] S Comment: Drawn From Arterial Line BUN (Blood Urea Nitrogen), S 59 (H) 8 - 24 MG/DL [facility] S Comment: Drawn From Arterial Line HX Bicarbonate, P/S 28 22 - 29 MMOL/L [facility] Comment: Drawn From Arterial Line Glucose, S 88 70 - 140 MG/DL [facility] Comment: Drawn From Arterial Line Anion Gap 13 7 - 15 [facility] Comment: Drawn From Arterial Line Chloride, S 99 98 - 107 MMOL/L [facility] PAM LABORATORIES - [facility] Comment: Drawn From Arterial Line Creatinine 2.8 (H) 0.8 - 1.3 MG/DL [facility] L ABORATORIES - [facility] Comment: Drawn From Arterial Line Specimen Anatomical Collection Method Collection Time Receive d Time (Source) Location / / Volume Laterality 11/23/2014 12:42 11/23/2014 AM CDT 12:42 AM CDT Narrative [facility] - [facility] - 11/23/2014 1:24 AM CDT Drawn From Arterial Line Ernestina Tao M.D. LAB BLOOD ADD-ON Performing Organization Address City/[facility]/ZIP [facility] Phon e Number [facility] LABORATORIES - [address] [address] [facility] Glucose, POCT (11/22/2014 10:17 PM CDT) [facility] Method Time Signature Glucose, POCT, 86 70 - 140 [facility] B MG/DL LABORATORIES [facility] Sample Site, ARTLINE [facility] Blood Gas, LABORATORIES - POCT [facility] Specimen Anatomical Collection Method Collection Time Receive d Time (Source) Location / / Volume Laterality 11/22/2014 10:17 11/22/2014 PM CDT 10:17 PM CDT Historical Provider LAB POCT ORDERABLES-MANUAL Performing Organization Address City/State/ZIP Code Phon e Number [facility] LABORATORIES - [address] [address] [facility] (ABNORMAL) Blood Gas with Coox, Arterial (11/22/2014 9:53 PM CDT) [facility] Method Time Signature Arterial Art Line [facility] Sample Site [facility] FIO2 0.35 .21=AIR [facility] pCO2 59 (H) 35 - 45 [facility] MM HG [facility] pH 7.29 (L) 7.35 - [facility] 7.45 PH [facility] Base Excess 1 -2 - 2 [facility] MMOL/L [facility] HCO3 27 (H) 22 - 26 [facility] MMOL/L [facility] Hb 13.7 13.5 - [facility] 17.5 G/DL [facility] O2Hb 95.7 94.0 - [facility] 98.0 % [facility] COHb 1.0 <3.0 % [facility] MetHb <1.0 <1.6 % [facility] LABORATORIES - [facility] Device BPAP [facility] pO2 102 (H) 80 - 100 [facility] MM HG [facility] CtO2 18.6 (L) 21.0 - [facility] 23.0 VOL LABORATORIES - % [facility] Specimen Anatomical Collection Method Collection Time Receive d Time (Source) Location / / Volume Laterality 11/22/2014 9:53 PM 5 9:53 CDT PM CDT Ernestina Tao M.D. LAB BLOOD NON ADD-ON Performing Organization Address City/[facility]/ZIP Code Phon e Number [facility] LABORATORIES - [address] Potassium (11/22/2014 9:53 PM CDT) P athologist Signature Potassium, S 5.0 3.6 - 5.2 [facility] MMOL/L [facility] Specimen Anatomical Collection Method Collection Time Receive d Time (Source) Location / / Volume Laterality 11/22/2014 9:53 PM 5 9:53 CDT PM CDT Ernestina Tao M.D. LAB BLOOD ADD-ON Performing Organization Address City/[facility]/ZIP Code Phon e Number [facility] LABORATORIES - [address] [address] [facility] Glucose, POCT (11/22/2014 9:48 PM CDT) P athologist Signature Glucose, POCT, 91 70 - 140 [facility] B MG/DL LABORATORIES - [facility] Sample Site, ARTL [facility] Blood Gas, LABORATORIES - POCT [facility] Specimen Anatomical Collection Method Collection Time Receive d Time (Source) Location / / Volume Laterality 11/22/2014 9:48 PM 5 9:48 CDT PM CDT Historical Provider LAB POCT ORDERABLES-MANUAL Performing Organization Address City/[facility]/ZIP [facility] Phon e Number [facility] LABORATORIES - [address] [address] [facility] (ABNORMAL) Cardiac Biomarker Panel (11/22/2014 9:24 PM CDT) Patholo gist Method Time Signature Troponin T, S 0.03 (H) <0.01 [facility] NG/ML [facility] Troponin T 3H, 0.04 (H) <0.01 [facility] S NG/ML [facility] Troponin Delta 0.01 NG/ML [facility] Delta Interp Not Sig [facility] Comment: No significant delta observed. Troponin Delta 0.01 NG/ML [facility] LAB [facility] Troponin T 6H, S 0.04 (H) <0.01 NG/ML [facility] INIC [facility] Delta Interp Not Sig [facility] LABOR AT[facility] Comment: No significant delta observed. Specimen Anatomical Collection Method Collection Time Receive d Time (Source) Location / / Volume Laterality 11/22/2014 9:24 PM 5 9:24 CDT PM CDT Kemal Heredia M.D. LAB BLOOD ADD-ON Performing Organization Address City/[facility]/ZIP [facility] Phon e Number [facility] LABORATORIES - [address] [address] [facility] Glucose, POCT (11/22/2014 9:20 PM CDT) P athologist Signature Glucose, POCT, 96 70 - 140 [facility] B MG/DL [facility] Sample Site, ARTL [facility] Blood Gas, LABORATORIES - POCT [facility] Specimen Anatomical Collection Method Collection Time Receive d Time (Source) Location / / Volume Laterality 11/22/2014 9:20 PM 5 9:20 CDT PM CDT Historical Provider LAB POCT ORDERABLES-MANUAL Performing Organization Address City/State/[facility] Phon e Number [facility] LABORATORIES - [address] [address] [facility] (ABNORMAL) Glucose, POCT (11/22/2014 8:43 PM CDT) Patholo gist Method Time Signature Glucose, POCT, 154 (H) 70 - 140 [facility] B MG/DL [facility] Sample Site, ARTLINE [facility] Blood Gas, LABORATORIES - POCT [facility] Specimen Anatomical Collection Method Collection Time Receive d Time (Source) Location / / Volume Laterality 11/22/2014 8:43 PM 5 8:43 CDT PM CDT Historical Provider LAB POCT ORDERABLES-MANUAL Performing Organization Address City/[facility]/ZIP Code Phon e Number [facility] LABORATORIES - [address] [address] [facility] Glucose, POCT (11/22/2014 8:15 PM CDT) [facility] Method Time Signature Glucose, POCT, 111 70 - 140 [facility] B MG/DL LABORATORIES - [facility] Sample Site, Venstick [facility] Blood Gas, LABORATORIES - POCT [facility] Specimen Anatomical Collection Method Collection Time Receive d Time (Source) Location / / Volume Laterality 11/22/2014 8:15 PM 5 8:15 CDT PM CDT Historical Provider LAB POCT ORDERABLES-MANUAL Performing Organization Address [facility] Phon e Number [facility] LABORATORIES - [address] [address] [facility] ECG 12 Lead (11/22/2014 7:48 PM CDT) Specimen (Source) Anatomical Collection Method Collection Time Re ceived Time Location / / Volume Laterality 11/22/2014 7:48 PM CDT [facility] - 11/22/2014 8:09 PM CDT 22Nov2014 19:48 VENTRICULAR RATE 58 Atrial flutter with variable A-V block Right bundle branch block When compared with ECG of 22-NOV-2014 12 :14, QRS axis has changed [id number]^CARL ??^GLORIA Graham Procedure Note Gloria May M.D., M.B. - 11/27/2017F ormatting of this note might be different from the original. 22Nov2014 19:48 VENTRICULAR RATE 58 Atrial flutter with variable A-V block Right bundle branch block When compared with ECG of 22-NOV-2014 12 :14, QRS axis has changed [id number]^CARL MENDEZ^GLORIA Graham Emelia Gay, P.A.-C., M.S. ECG ORDERABLES Performing Organization Address City/[facility]/ZIP Code Phon e Number [facility] [address] [place] [address], U SA (ABNORMAL) Blood Gas with Coox, Arterial (11/22/2014 6:57 PM CDT) [facility] Method Time Signature Device BPAP [facility] Spont. 14 [facility] breaths/min [facility] pH 7.28 (L) 7.35 - [facility] 7.45 PH [facility] Base Excess 1 -2 - 2 [facility] MMOL/L [facility] O2Hb 94.2 94.0 - [facility] 98.0 % [facility] COHb 1.5 <3.0 % [facility] Arterial Art Line [facility] Sample Site [facility] FIO2 0.35 .21=AIR [facility] pO2 88 80 - 100 [facility] MM HG [facility] pCO2 61 (H) 35 - 45 [facility] MM HG [facility] HCO3 27 (H) 22 - 26 [facility] MMOL/L [facility] Hb 14.8 13.5 - [facility] 17.5 G/DL [facility] MetHb <1.0 <1.6 % [facility] CtO2 19.6 (L) 21.0 - [facility] 23.0 VOL LABORATORIES - % [facility] Specimen Anatomical Collection Method Collection Time Receive d Time (Source) Location / / Volume Laterality 11/22/2014 6:57 PM 5 6:57 CDT PM CDT Nathalie Cosby R.N. LAB BLOOD NON ADD-ON Performing Organization Address City/State/ZIP Code Phon e Number [facility] LABORATORIES - [address] [place], [place] [address] [facility] (ABNORMAL) Blood Gas with Coox, Arterial (11/22/2014 4:31 PM CDT) [facility] gist Method Time Signature Arterial Art Line [facility] Sample Site [facility] FIO2 0.35 .21=AIR [facility] pO2 82 80 - 100 [facility] MM HG [facility] pCO2 69 (H) 35 - 45 [facility] MM HG [facility] pH 7.23 (L) 7.35 - [facility] 7.45 PH [facility] Base Excess 1 -2 - 2 [facility] MMOL/L [facility] HCO3 28 (H) 22 - 26 [facility] MMOL/L [facility] Hb 14.5 13.5 - [facility] 17.5 G/DL [facility] O2Hb 93.2 (L) 94.0 - [facility] 98.0 % LABORATORIES - [facility] COHb 1.0 <3.0 % [facility] LABORATORIES [facility] Device BPAP [facility] Spont. 14 [facility] breaths/min [facility] MetHb <1.0 <1.6 % [facility] CtO2 19.0 (L) 21.0 - [facility] 23.0 VOL LABORATORIES - % [facility] Specimen Anatomical Collection Method Collection Time Receive d Time (Source) Location / / Volume Laterality 11/22/2014 4:31 PM 5 4:31 CDT PM CDT Radha Peña APRN, C.N.P. LAB BLOOD NON ADD-ON Performing Organization Address City/[facility]/ZIP Code Phon e Number [facility] LABORATORIES - [address] [place] [address] [facility] Magnesium (11/22/2014 4:31 PM CDT) P athologist Signature Magnesium, S 1.8 1.7 - 2.3 [facility] MG/DL [facility] Specimen Anatomical Collection Method Collection Time Receive d Time (Source) Location / / Volume Laterality 11/22/2014 4:31 PM 5 4:31 CDT PM CDT Radha Peña APRN, C.N.P. LAB BLOOD ADD-ON Performing Organization Address City/State/[facility] Code Phon e Number [facility] LABORATORIES - [address] [place] [address] [facility] (ABNORMAL) CBC without Differential (11/22/2014 4:31 PM CDT) Patholo gist Method Time Signature Erythrocytes 4.85 4.32 - [facility] 5.72 LABORATORIES - X10(12)/L [facility] MCV 94.2 81.2 - [facility] 95.1 FL [facility] Hemoglobin 14.2 13.5 - [facility] 17.5 G/DL [facility] Hematocrit 45.7 38.8 - [facility] 50.0 % [facility] RBC Distrib 16.5 (H) 11.8 - [facility] Width 15.6 % [facility] Platelet Count 166 150 - [facility] X10(9)/L LABORATORIES - [facility] Leukocytes 15.5 (H) 3.5 - [facility] 10.5 LABORATORIES - X10(9)/L [facility] Specimen Anatomical Collection Method Collection Time Receive d Time (Source) Location / / Volume Laterality 11/22/2014 4:31 PM 5 4:31 CDT PM CDT Radha Peña APRN, C.N.P. LAB BLOOD ADD-ON Performing Organization Address City/[facility] Code Phon e Number [facility] - [address] [place] [id number] [facility] (ABNORMAL) Electrolyte (Chem 4) Panel (11/22/2014 4:31 PM CDT) [facility] Method Time Signature Chloride, S 96 (L) 98 - 107 [facility] MMOL/L LABORATORIES - [facility] HX Bicarbonate, 26 22 - 29 [facility] P/S MMOL/L LABORATORIES - [facility] eGFR-Black/Afri 30 (L) >60 [facility] can [place]ammar[place] ML/MIN/BS LABORATORIES - A [facility] BUN (Blood Urea 52 (H) 8 - 24 [facility] Nitrogen), S MG/DL LABORATORIES - [facility] Sodium, S 136 135 - 145 [facility] MMOL/L LABORATORIES - [facility] Potassium, S 5.8 (H) 3.6 - 5.2 [facility] MMOL/L LABORATORIES - [facility] Creatinine 2.7 (H) 0.8 - 1.3 [facility] MG/DL LABORATORIES - [facility] eGFR 25 (L) >60 [facility] Non-Black/Afric ML/MIN/BS LABORATORIES - an Sammar[place] A [facility] Anion Gap 14 7 - 15 [facility] LABORATORIES - [facility] Glucose, S 145 (H) 70 - 140 [facility] MG/DL LABORATORIES - [facility] Specimen Anatomical Collection Method Collection Time Receive d Time (Source) Location / / Volume Laterality 11/22/2014 4:31 PM 5 4:31 CDT PM CDT Radha Peña APRN, C.N.P. LAB BLOOD ADD-ON Performing Organization Address City/State/ZIP Code Phon e Number [facility] LABORATORIES - [address] [place], [place] [address] [facility] Lactate (11/22/2014 4:31 PM CDT) athologist Signature Lactate, P 0.9 0.6 - 2.3 [facility] MMOL/L LABORATORIES - [facility] Specimen Anatomical Collection Method Collection Time Receive d Time (Source) Location / / Volume Laterality 11/22/2014 4:31 PM 5 4:31 CDT PM CDT Radha Peña APRN, C.N.P. LAB BLOOD NON ADD-ON Performing Organization Address City/[facility]/ZIP Code Phon e Number [facility] LABORATORIES - [address] [place] [address] [facility] (ABNORMAL) Phosphorus Inorganic (11/22/2014 4:31 PM CDT) [facility] Method Time Signature Phosphorus 7.0 (H) 2.5 - 4.5 [facility] (Inorganic), S MG/DL LABORATORIES - [facility] Specimen Anatomical Collection Method Collection Time Receive d Time (Source) Location / / Volume Laterality 11/22/2014 4:31 PM 5 4:31 CDT PM CDT Radha Peña APRN, C.N.P. LAB BLOOD ADD-ON Performing Organization Address City/[facility]/ZIP Code Phon e Number [facility] LABORATORIES - [address] [address] [facility] Calcium, Ionized (11/22/2014 4:31 PM CDT) athologist Signature Calcium, 4.70 4.65 - [facility] Ionized, B 5.30 MG/DL LABORATORIES - [facility] Specimen Anatomical Collection Method Collection Time Receive d Time (Source) Location / / Volume Laterality 11/22/2014 4:31 PM 5 4:31 CDT PM CDT Radha Peña APRN, C.N.P. LAB BLOOD NON ADD-ON Performing Organization Address City/[facility]/ZIP Code Phon e Number [facility] LABORATORIES - [address] [address] [facility] Glucose, POCT (11/22/2014 4:21 PM CDT) [facility] gist Method Time Signature Glucose, POCT, 133 70 - 140 [facility] B MG/DL LABORATORIES - [facility] Sample Site, ARTLINE [facility] Blood Gas, LABORATORIES - POCT [facility] Specimen Anatomical Collection Method Collection Time Receive d Time (Source) Location / / Volume Laterality 11/22/2014 4:21 PM 5 4:21 CDT PM CDT Historical Provider LAB POCT ORDERABLES-MANUAL Performing Organization Address City/[facility]/ZIP Code Phon e Number [facility] LABORATORIES - [address] [place], [place] [address] [facility] (ABNORMAL) Glucose, POCT (11/22/2014 3:32 PM CDT) [facility] gist Method Time Signature Glucose, POCT, 147 (H) 70 - 140 [facility] B MG/DL LABORATORIES - [facility] Sample Site, [facility] Blood Gas, LABORATORIES - POCT [facility] Specimen Anatomical Collection Method Collection Time Receive d Time (Source) Location / / Volume Laterality 11/22/2014 3:32 PM 5 3:32 CDT PM CDT Historical Provider LAB POCT ORDERABLES-MANUAL Performing Organization Address City/[facility]/ZIP Code Phon e Number [facility] LABORATORIES - [address] [place], [place] [address] [facility] (ABNORMAL) Glucose, POCT (11/22/2014 3:06 PM CDT) [facility] Method Time Signature Glucose, POCT, 164 (H) 70 - 140 [facility] B MG/DL LABORATORIES - [facility] Sample Site, [facility] Blood Gas, LABORATORIES - POCT [facility] Specimen Anatomical Collection Method Collection Time Receive d Time (Source) Location / / Volume Laterality 11/22/2014 3:06 PM 5 3:06 CDT PM CDT Historical Provider LAB POCT ORDERABLES-MANUAL Performing Organization Address City/[facility]/ZIP Code Phon e Number [facility] LABORATORIES - [address] [place], [place] [address] [facility] (ABNORMAL) Blood Gas with Coox, Arterial (11/22/2014 2:32 PM CDT) [facility] Method Time Signature Arterial Art Line [facility] Sample Site [facility] FIO2 0.50 .21=AIR [facility] pO2 109 (H) 80 - 100 [facility] MM HG [facility] pCO2 71 (H) 35 - 45 [facility] MM HG [facility] HCO3 30 (H) 22 - 26 [facility] MMOL/L LABORATORIES [facility] Hb 14.3 13.5 - [facility] 17.5 G/DL [facility] MetHb <1.0 <1.6 % [facility] LABORATORIES [facility] CtO2 19.5 (L) 21.0 - [facility] 23.0 VOL LABORATORIES - % [facility] Device BPAP [facility] Spont. 20 [facility] breaths/min [facility] pH 7.22 (L) 7.35 - [facility] 7.45 PH [facility] Base Excess 2 -2 - 2 [facility] MMOL/L [facility] O2Hb 96.1 94.0 - [facility] 98.0 % [facility] COHb 1.1 <3.0 % [facility] Specimen Anatomical Collection Method Collection Time Receive d Time (Source) Location / / Volume Laterality 11/22/2014 2:32 PM 5 2:32 CDT PM CDT Berkley Kaufman M.D. LAB BLOOD NON ADD-ON Performing Organization Address City/State/ZIP Code Phon e Number [facility] LABORATORIES - [address] [place] [address] [facility] (ABNORMAL) Glucose, POCT (11/22/2014 2:31 PM CDT) [facility] Method Time Signature Glucose, POCT, 166 (H) 70 - 140 [facility] B MG/DL [facility] Sample Site, ARTLINE [facility] Blood Gas, LABORATORIES - POCT [facility] Specimen Anatomical Collection Method Collection Time Receive d Time (Source) Location / / Volume Laterality 11/22/2014 2:31 PM 5 2:31 CDT PM CDT Historical Provider LAB POCT ORDERABLES-MANUAL Performing Organization Address City/[facility]/ZIP [facility] Phon e Number [facility] LABORATORIES - [address] [address] [facility] (ABNORMAL) BMP (Basic Metabolic Panel) (11/22/2014 12:27 PM CDT) [facility] Method Time Signature Creatinine 2.5 (H) 0.8 - 1.3 [facility] MG/DL [facility] eGFR 27 (L) >60 [facility] Non-Black/Afric ML/MIN/BS LABORATORIES - an [place] A [facility] HX Bicarbonate, 28 22 - 29 [facility] P/S MMOL/L LABORATORIES - [facility] Glucose, S 138 70 - 140 [facility] MG/DL LABORATORIES - [facility] Sodium, P 135 135 - 145 [facility] MMOL/L LABORATORIES - [facility] Chloride, S 95 (L) 98 - 107 [facility] MMOL/L LABORATORIES - [facility] eGFR-Black/Afri 32 (L) >60 [facility] can [place] ML/MIN/BS LABORATORIES - A [facility] BUN (Blood Urea 52 (H) 8 - 24 [facility] Nitrogen), S MG/DL LABORATORIES - [facility] Anion Gap 12 7 - 15 [facility] LABORATORIES - [facility] Potassium, P 6.3 (>) 3.6 - 5.2 [facility] MMOL/L LABORATORIES - [facility] Specimen Anatomical Collection Method Collection Time Receive d Time (Source) Location / / Volume Laterality 11/22/2014 12:27 11/22/2014 PM CDT 12:27 PM CDT Ana Gomez M.D. LAB BLOOD ADD-ON Performing Organization Address City/State/ZIP Code Phon e Number [facility] LABORATORIES - [address] [address] [facility] ECG 12 Lead (11/22/2014 12:14 PM CDT) Specimen (Source) Anatomical Collection Method Collection Time Re ceived Time Location / / Volume Laterality 11/22/2014 12:14 PM CDT [facility] RADIOLOGY SYSTEM - 11/22/2014 1:04 PM CDT 22Nov2014 12:14 VENTRICULAR RATE 53 Atrial flutter with 4:1 A-V conduction Right bundle branch block Left anterior fascicular block Bifascicular block No previous ECGs available [id number]^CARL ??^GLORIA Graham Procedure Note Gloria May M.D., M.B. - 11/27/2017F ormatting of this note might be different from the original. 22Nov2014 12:14 VENTRICULAR RATE 53 Atrial flutter with 4:1 A-V conduction Right bundle branch block Left anterior fascicular block Bifascicular block No previous ECGs available [id number]^CARL MENDEZ^GLORIA Graham Emelia Gay, PNoe M.S. ECG ORDERABLES Performing Organization Address City/State/ZIP Code Phon e Number [facility] [address] [place] [address], U SA (ABNORMAL) Blood Gas without Coox, Arterial (11/22/2014 12:12 PM CDT) [facility] gist Method Time Signature Arterial R-Radial [facility] Sample Site [facility] FIO2 0.40 .21=AIR [facility] pO2 78 (L) 80 - 100 [facility] MM HG [facility] pCO2 67 (H) 35 - 45 [facility] MM HG [facility] pH 7.24 (L) 7.35 - [facility] 7.45 PH [facility] Base Excess 1 -2 - 2 [facility] MMOL/L [facility] HCO3 28 (H) 22 - 26 [facility] MMOL/L [facility] Device CFM [facility] Spont. 16 [facility] breaths/min [facility] Specimen Anatomical Collection Method Collection Time Receive d Time (Source) Location / / Volume Laterality 11/22/2014 12:12 11/22/2014 PM CDT 12:12 PM CDT Ana Gomez M.D. LAB BLOOD NON ADD-ON Performing Organization Address City/State/ZIP Code Phon e Number [facility] LABORATORIES - [address] [place], [place] [address] [facility] DX Chest Portable 1 View (11/22/2014 12:05 PM CDT) Anatomical Region Laterality Modality Chest N/A Radiographic Imaging Specimen (Source) Anatomical Collection Method Collection Time Re ceived Time Location / / Volume Laterality 11/22/2014 12:05 PM CDT Impressions 11/22/2014 12:08 PM CDT Shallow inspiration. Perihilar consolidation possibly representing atelectasis or infiltrate. Chest otherwise negative. Electronically signed by: ?? Cuauhtemoc Denton M.D. [phone] 22-Nov-2014 12:08 Narrative 11/22/2014 12:08 PM CDT 22-Nov-2014 12:05:00 ??Exam: Portable-Chest Indications: Hypoventilation / Difficult y breathing Assess chest imaging / question consolidation / atelectasis / COPD ORIGINAL REPORT - 22-Nov-2014 12:08:00 Chest; 1 view: Procedure Note Yimi Denton M.D. - 12/03/2017Format ting of this note might be different from the original. 22-Nov-2014 12:05:00 Exam: Portable-Ches t Indications: Hypoventilation / Difficult y breathing Assess chest imaging / question consolidation / atelectasis / COPD ORIGINAL REPORT - 22-Nov-2014 12:08:00 Chest; 1 view: IMPRESSION: Shallow inspiration. Perihil ar consolidation possibly representing atelectasis or infiltrate. Chest otherwise negative. Electronically signed by: Cuauhtemoc Denton M.D. [phone] 22-Nov-2014 12:08 Emelia Gay, Kristyn., M.S. IMG DIAGNOSTIC IM AGING PROCEDURES (ABNORMAL) Glucose, POCT (11/22/2014 11:00 AM CDT) [facility] Method Time Signature Glucose, POCT, 141 (H) 70 - 140 [facility] B MG/DL [facility] Specimen Anatomical Collection Method Collection Time Receive d Time (Source) Location / / Volume Laterality 11/22/2014 11:00 11/22/2014 AM CDT 11:00 AM CDT Historical Provider LAB POCT ORDERABLES-MANUAL Performing Organization Address City/State/ZIP Code Phon e Number [facility] LABORATORIES - [address] [address] [facility] (ABNORMAL) Electrolyte (Chem 4) Panel (11/22/2014 9:00 AM CDT) [facility] Method Time Signature Chloride, S 95 (L) 98 - 107 [facility] MMOL/L [facility] HX Bicarbonate, 25 22 - 29 [facility] P/S MMOL/L [facility] Creatinine 2.4 (H) 0.8 - 1.3 [facility] MG/DL [facility] eGFR 28 (L) >60 [facility] Non-Black/Afric ML/MIN/BS LABORATORIES - an [place] A [facility] Anion Gap 16 (H) 7 - 15 [facility] Glucose, S 130 70 - 140 [facility] MG/DL [facility] Sodium, S 136 135 - 145 [facility] MMOL/L [facility] Potassium, S 6.8 (>) 3.6 - 5.2 [facility] MMOL/L [facility] eGFR-Black/Afri 34 (L) >60 [facility] can [place] ML/MIN/BS LABORATORIES - A [facility] BUN (Blood Urea 48 (H) 8 - 24 [facility] Nitrogen), S MG/DL [facility] Specimen Anatomical Collection Method Collection Time Receive d Time (Source) Location / / Volume Laterality 11/22/2014 9:00 AM 5 9:00 CDT AM CDT Eric Hess M.D. LAB BLOOD ADD-ON Performing Organization Address City/[facility] Phon e Number [facility] - [address] [place], [place] [address] [facility] (ABNORMAL) Blood Gas without Coox, Arterial (11/22/2014 7:15 AM CDT) [facility] [place] Method Time Signature Device CFM [facility] pO2 56 (L) 80 - 100 [facility] MM HG [facility] pCO2 81 (H) 35 - 45 [facility] MM HG [facility] pH 7.19 (L) 7.35 - [facility] 7.45 PH [facility] Base Excess 2 -2 - 2 [facility] MMOL/L [facility] HCO3 31 (H) 22 - 26 [facility] MMOL/L [facility] Arterial R-Radial [facility] Sample Site [facility] - [facility] FIO2 0.70 .21=AIR [facility] Specimen Anatomical Collection Method Collection Time Receive d Time (Source) Location / / Volume Laterality 11/22/2014 7:15 AM 5 7:15 CDT AM CDT Eric Hess M.D. LAB BLOOD NON ADD-ON Performing Organization Address City/[facility] Code Phon e Number [facility] - [address] [place] [place], [place] [address] [facility] (ABNORMAL) Glucose, POCT (11/22/2014 6:14 AM CDT) [facility] [place] Method Time Signature Glucose, 157 (H) 70 - 140 [facility] POCT, B MG/DL [facility] Sample Site, Capillary [facility] Blood Gas, LABORATORIES - POCT [facility] Last Intake NPO [facility] Specimen Anatomical Collection Method Collection Time Receive d Time (Source) Location / / Volume Laterality 11/22/2014 6:14 AM 5 6:14 CDT AM CDT Historical Provider LAB POCT ORDERABLES-MANUAL Performing Organization Address City/State/ZIP Code Phon e Number [facility] LABORATORIES - [address] [address] [facility] (ABNORMAL) Blood Gas without Coox, Arterial (11/22/2014 12:23 AM CDT) [email or web address] Method Time Signature Device OFM [facility] pO2 60 (L) 80 - 100 [facility] MM HG [facility] Arterial L-Radial [facility] Sample Site [facility] O2 Flow 10.0 L/MIN [facility] pCO2 70 (H) 35 - 45 [facility] MM HG [facility] pH 7.25 (L) 7.35 - [facility] 7.45 PH [facility] Base Excess 3 (H) -2 - 2 [facility] MMOL/L [facility] HCO3 30 (H) 22 - 26 [facility] MMOL/L [facility] Specimen Anatomical Collection Method Collection Time Receive d Time (Source) Location / / Volume Laterality 11/22/2014 12:23 11/22/2014 AM CDT 12:23 AM CDT Berkley Kaufman M.D. LAB BLOOD NON ADD-ON Performing Organization Address City/State/ZIP Code Phon e Number [facility] LABORATORIES - [address] [address] [facility] (ABNORMAL) Glucose, POCT (11/21/2014 10:09 PM CDT) [email or web address] Method Time Signature Glucose, 164 (H) 70 - 140 [facility] POCT, B MG/DL [facility] Sample Site, Capillary [facility] Blood Gas, LABORATORIES - POCT [facility] Last Intake NPO [facility] Specimen Anatomical Collection Method Collection Time Receive d Time (Source) Location / / Volume Laterality 11/21/2014 10:09 11/21/2014 PM CDT 10:09 PM CDT Historical Provider LAB POCT ORDERABLES-MANUAL Performing Organization Address City/State/ZIP Code Phon e Number [facility] LABORATORIES - [address] [address] [facility] (ABNORMAL) Glucose, POCT (11/21/2014 6:10 PM CDT) [facility] Method Time Signature Glucose, POCT, 156 (H) 70 - 140 [facility] B MG/DL [facility] Specimen Anatomical Collection Method Collection Time Receive d Time (Source) Location / / Volume Laterality 11/21/2014 6:10 PM 5 6:10 CDT PM CDT Historical Provider LAB POCT ORDERABLES-MANUAL Performing Organization Address City/[facility] Code Phon e Number [facility] LABORATORIES - [address] [place], [place] [address] [facility] (ABNORMAL) Glucose, POCT (11/21/2014 2:03 PM CDT) [facility] Signature Glucose, 173 (H) 70 - 140 [facility] POCT, B MG/DL LABORATORIES [facility] Sample Site, Capillary [facility] Blood Gas, LABORATORIES - POCT [facility] Last Intake > 4 hours [facility] Specimen Anatomical Collection Method Collection Time Receive d Time (Source) Location / / Volume Laterality 11/21/2014 2:03 PM 5 2:03 CDT PM CDT Historical Provider LAB POCT ORDERABLES-MANUAL Performing Organization Address City/[facility]/ZIP Code Phon e Number [facility] LABORATORIES - [address] [address] [facility] (ABNORMAL) Glucose, POCT (11/21/2014 1:15 PM CDT) [facility] Method [place] Signature Glucose, 151 (H) 70 - 140 [facility] POCT, B MG/DL [facility] Sample Site, Capillary [facility] Blood Gas, LABORATORIES - POCT [facility] Specimen Anatomical Collection Method Collection Time Receive d Time (Source) Location / / Volume Laterality 11/21/2014 1:15 PM 5 1:15 CDT PM CDT Historical Provider LAB POCT ORDERABLES-MANUAL Performing Organization Address City/[facility] Phon e Number [facility] LABORATORIES - [address] [place], [place] [address] [facility] Glucose, POCT (11/21/2014 11:46 AM CDT) [facility] Method [place] Signature Glucose, 140 70 - 140 [facility] POCT, B MG/DL LABORATORIES - [facility] Sample Site, Capillary [facility] Blood Gas, LABORATORIES - POCT [facility] Specimen Anatomical Collection Method Collection Time Receive d Time (Source) Location / / Volume Laterality 11/21/2014 11:46 11/21/2014 AM CDT 11:46 AM CDT Nuno Sawant M.D. LAB POCT ORDERABLES-MANUAL Performing Organization Address [facility] Phon e Number [facility] LABORATORIES - [address] [address] [facility] Glucose, POCT (11/21/2014 10:43 AM CDT) P athologist Signature Glucose, POCT, 113 70 - 140 [facility] B MG/DL LABORATORIES - [facility] Specimen Anatomical Collection Method Collection Time Receive d Time (Source) Location / / Volume Laterality 11/21/2014 10:43 11/21/2014 AM CDT 10:43 AM CDT Historical Provider LAB POCT ORDERABLES-MANUAL Performing Organization Address City/[facility] Phon e Number [facility] LABORATORIES - [address] [place], [place] [address] [facility] Glucose, POCT (11/21/2014 9:46 AM CDT) P athologist Signature Glucose, POCT, 115 70 - 140 [facility] B MG/DL LABORATORIES - [facility] Specimen Anatomical Collection Method Collection Time Receive d Time (Source) Location / / Volume Laterality 11/21/2014 9:46 AM 5 9:46 CDT AM CDT Historical Provider LAB POCT ORDERABLES-MANUAL Performing Organization Address City/[facility] Phon e Number [facility] LABORATORIES - [address], [place] [address] [facility] (ABNORMAL) Glucose, POCT (11/21/2014 8:43 AM CDT) Patholo gist Method Time Signature Glucose, 64 (L) 70 - 140 [facility] POCT, B MG/DL LABORATORIES - [facility] Sample Site, Capillary [facility] Blood Gas, LABORATORIES - POCT [facility] Specimen Anatomical Collection Method Collection Time Receive d Time (Source) Location / / Volume Laterality 11/21/2014 8:43 AM 5 8:43 CDT AM CDT Nuno Sawant M.D. LAB POCT ORDERABLES-MANUAL Performing Organization Address City/[facility]/ZIP Code Phon e Number [facility] LABORATORIES - [address] [address] [facility] Glucose, POCT (11/21/2014 7:26 AM CDT) [facility] [place] Method Time Signature Last Intake NPO [facility] Glucose, 91 70 - 140 [facility] POCT, B MG/DL LABORATORIES - [facility] Sample Site, Capillary [facility] Blood Gas, LABORATORIES - POCT [facility] Specimen Anatomical Collection Method Collection Time Receive d Time (Source) Location / / Volume Laterality 11/21/2014 7:26 AM 5 7:26 CDT AM CDT Historical Provider LAB POCT ORDERABLES-MANUAL Performing Organization Address City/[facility] Code Phon e Number [facility] - [address], [place] [address] [facility] (ABNORMAL) Glucose, POCT (11/21/2014 6:57 AM CDT) [facility] [place] Method Time Signature Last Intake > 4 hours [facility] Glucose, 61 (L) 70 - 140 [facility] POCT, B MG/DL LABORATORIES - [facility] Sample Site, Capillary [facility] Blood Gas, LABORATORIES - POCT [facility] Specimen Anatomical Collection Method Collection Time Receive d Time (Source) Location / / Volume Laterality 11/21/2014 6:57 AM 5 6:57 CDT AM CDT Historical Provider LAB POCT ORDERABLES-MANUAL Performing Organization Address City/[facility]/ZIP Code Phon e Number [facility] - [address] [id number] [facility] documented in this encounter Visit Diagnoses Not on filedocumented in this encounter Additional Health Concerns Assessment Noted Time PHQ-9 Depression Total Score: 18 02/14/2013 9:53 AM CD T documented as of this encounter
--- OUTSIDE RECORDS SUMMARY | 2022-07-29 10:54 | XMS_ITS | Encounter Summary ---
:1960 Author Organization [facility] Address [address] [place] [address] Care Team Providers Name Role Phone Unavailable Primary Care Provider Unavailable Encounter Details Date Type Department Care Team Description 05/03/2014 Hospital Encounter HX [facility] [place] Cintia Aguirre M.D. [address] [place] [phone] (Wo rk) Social History Tobacco Use Types Packs/Day Years Used Date Smoking Tobacco: Never Assessed Sex Assigned at Date Recorded Not on file documented as of this encounter Last Filed Vital Signs Vital Sign Reading Time Taken Comments Blood Pressure 152/76 05/03/2014 6:24 PM CDT Pulse 50 05/03/2014 6:08 PM CDT Temperature - - Respiratory Rate - - Oxygen Saturation - - Inhaled Oxygen Concentration - - Weight 161 kg (354 lb 8 oz) 05/03/2014 6:08 PM CDT Height 185 cm (6' 0.84) 05/03/2014 6:24 PM CDT Body Mass Index 46.98 05/03/2014 6:08 PM CDT documented in this encounter Progress Notes Cintia Cobb M.D. - 05/03/2014 6:06 PM CDT [id number] CHIEF COMPLAINT/REASON FOR VISIT Follow up blood pressure. HISTORY OF PRESENT ILLNESS Ed is a 53-year-old male who comes in today for followup of his high blood pressure and diabetes. He states that things are so-so and not too bad. His blood pressure is decent at times and other times it is high. He has taken his blood pressure medications as directed. He also stated that his blood sugars have been fluctuating. Sometimes they will be 150 to 180 in the mornings but other times lower. He also reports that he will change how much Lantus he takes based on how high they are that night. His legs also continue to be a swollen especially by the end of the day. The left knee will also be painful at times. Additionally, his left arm, the biceps will be painful. Otherwise, he denies any chest pain, shortness of breath or lightheadedness. MEDICATIONS Reconciled. We are going to go up on the Lasix to 20 mg in the morning and 40 mg in the evening. We will increase the Norvasc to 10 mg daily. ALLERGIES Cipro. Influenza vaccine. SYSTEMS REVIEW As per HPI. Patient is planning to have his bariatric surgery over the . VITAL SIGNS Temperature 36 degrees, pulse is 50 beats per minute, blood pressure is 168/82, recheck is 152/76. Height is 185 cm, weight is 160.8 kg. BMI is 46.9. PHYSICAL EXAMINATION GENERAL: Patient is alert and oriented in no acute distress. NECK: No carotid bruits. CARDIOVASCULAR: Regular rate and rhythm. Normal S1, S2. No murmurs, rubs, or gallops. LUNGS: Clear to auscultation bilaterally. EXTREMITIES: He has 3+ Telford edema past his knees right greater than left today. On evaluation of his left arm, he has tenderness in the mid region of the biceps. He has 5/5 strength with shoulder abduction, elbow flexion and extension bilaterally. He does have pain with left-sided elbow flexion. He also has some pain with abduction. Additionally with internal rotation he has a lot of pain. DIAGNOSTICS Hemoglobin A1c is 8.2. IMPRESSION/REPORT/PLAN 1. Type 2 diabetes. Patient's A1c has gone up and it is now at 8.2. We will increase his Lantus to 70 units at bedtime and we will plan on rechecking in 3 months. 2. Benign essential hypertension. Patient's blood pressure continues to be elevated. We are going toincrease his Norvasc to 10 mg. We have to watch is swelling as we do this. We will have him come back in 1 to 2 weeks and have a nurse visit blood pressure check. 3. Pedal edema. We are going to go up on his Lasix to see if that would help. Patient would probablybenefit from seeing our lymphedema specialist but since he will be undergoing the bariatric surgery soon, that may provide enough benefit. Ready to learn. No apparent learning barriers were identified. Learning preferences include listening. Explained diagnosis and treatment plan. Patient/Child/Caregiver expressed understanding of the content. Cintia Song M.D./caron Electronically Signed By: CINTIA KILGORE MD On: 05/12/2014 10:19 AM Source: [facility] MHSDOLBEYNONRADSYS Document Id: [id number] documented in this encounter Miscellaneous Notes Miscellaneous - Cintia Cobb M.D. - 05/11/2014 2:16 PM CDT Normal Results Letter 11 May 2014 LAZ LUNA [address] [place] [id number] Dear ED CARLYLE, Your A1c has gone up a little to 8.2. We will increase your Lantus to 70 units as we discussed and recheck in 3 months. At this point, we will continue your current blood pressure medications. Please follow up with us as we discussed during your visit or sooner if you have any concerns. If you have questions or concerns, please do not hesitate to call our office. Result Name Current Result Previous Result Normal Range Hgb A1c (% A1C) (H) 8.2 05/03/2014 (H) 7.65 10/18/2013 - <=5.6 Sincerely, CINTIA KILGORE [id number] [address] Electronic Signature Electronically Signed By: CINTIA KILGORE MD On: 11 May 2014 This document has images extracted. Source: [facility] Soup.io Document Id: [id number] Lulycellaneous - Cintia Cobb M.D. - 05/05/2014 9:33 PM CDT Labs/DM Document Contains Addenda Addendum by ANNE MARIE TUTTLE LPN, RT on 16 May 2014 09:47:44 CDT Patient's notified. DL From: CINTIA KILGORE MD To: ANNE MARIE TUTTLE LPN RT; Sent: 05/05/2014 21:33:13 CDT Subject: Labs/DM Please call patient's and let her know that Ed's A1c was 8.2 which is above our goal of 7. We will increase his Lantus to 70units at bedtime. A1c should be rechecked in 3 months. Cintia Segura Source: [facility] CoworksCHART Document Id: [id number] Miscellaneous - Cintia Cobb M.D. - 05/03/2014 6:49 PM CDT Ambulatory Patient Summary [address] [id number] Visit Information Name: CARLYLE LAZ [facility] Number: [id number] Current Date: 05/03/2014 18:49:04 Physicians Attending Provider: CINTIA KILGORE MD Primary [...] 1 Tablet(s), Oral, once a day hypertension This is a CHANGE Routed to [address] [address] docusate-senna (Dok Plus) 2 Tablet(s), Oral, once a day furosemide (Lasix 20 mg oral tablet) See Instructions 1 tab(s) PO in morning and 2 tab in evening Routed to [address] [address] hydrochlorothiazide (hydrochlorothiazide 25 mg oral tablet) 1 Tablet(s), Oral, once a day hydrocortisone topical (hydrocortisone 2.5% topical lotion) 1 jannie, Topical, three times a day ibuprofen (Advil) 200 mg, Oral, 2 tabs daily insulin glargine (Lantus Solostar Pen 100 units/mL subcutaneous solution) 60 units, Subcutaneous, once a day liraglutide (Victoza) 1.8 mg, Subcutaneous, once a day lisinopril (lisinopril 40 mg oral tablet) 1 Tablet(s), Oral, two times a day metFORMIN (metformin 1000 mg oral tablet) 1 Tablet(s), Oral, two times a day with meals metoprolol (metoprolol tartrate 25 mg oral tablet) 1 Tablet(s), Oral, two times a day omeprazole (omeprazole 20 mg oral delayed release capsule) 1 cap, Oral, once a day simvastatin (simvastatin 40 mg oral tablet) 1 Tablet(s), Oral, once a day (at bedtime) tadalafil (Cialis 20 mg oral tablet) 1 Tablet(s), Oral, once a day as needed for erectile dysfunction Take as needed prior to anticipated sexual activity Stop Taking the Following Medications: Medication list as of 05-03-14 18:49 Attention: If you have any medications at [...] Electronically Signed By: CINTIA KILGORE MD Signed On:03-MAY-2014 18:48:42 Your Allergies & Intolerances Substance Reaction Symptoms [...] Reaction Active 05/05/2013 12/03/13 Unspecified adjustment reaction Your Upcoming Appointments Date Time Location Provider No Appointments found Attention: Contact your local Clinic if further appointment detail needed. Your Goals/Additional instructions: Source: [facility] POWERCHART Document Id: [id number] Miscellaneous - Cintia Cbob M.D. - 05/03/2014 6:49 PM CDT Ambulatory Discharge Medication List [address] [place] [id number] Visit Information Name: LAZ LUNA [facility] Number: [id number] Visit Date: 05/03/2014 18:49:02 Attending Provider: CINTIA KILGORE MD Primary Care [...] 1 Tablet(s), Oral, once a day hypertension This is a CHANGE Routed to [address] [address] docusate-senna (Dok Plus) 2 Tablet(s), Oral, once a day furosemide (Lasix 20 mg oral tablet) See Instructions 1 tab(s) PO in morning and 2 tab in evening Routed to [address] [address] hydrochlorothiazide (hydrochlorothiazide 25 mg oral tablet) 1 Tablet(s), Oral, once a day hydrocortisone topical (hydrocortisone 2.5% topical lotion) 1 jannie, Topical, three times a day ibuprofen (Advil) 200 mg, Oral, 2 tabs daily insulin glargine (Lantus Solostar Pen 100 units/mL subcutaneous solution) 60 units, Subcutaneous, once a day liraglutide (Victoza) 1.8 mg, Subcutaneous, once a day lisinopril (lisinopril 40 mg oral tablet) 1 Tablet(s), Oral, two times a day metFORMIN (metformin 1000 mg oral tablet) 1 Tablet(s), Oral, two times a day with meals metoprolol (metoprolol tartrate 25 mg oral tablet) 1 Tablet(s), Oral, two times a day omeprazole (omeprazole 20 mg oral delayed release capsule) 1 cap, Oral, once a day simvastatin (simvastatin 40 mg oral tablet) 1 Tablet(s), Oral, once a day (at bedtime) tadalafil (Cialis 20 mg oral tablet) 1 Tablet(s), Oral, once a day as needed for erectile dysfunction Take as needed prior to anticipated sexual activity Stop Taking the Following Medications: Medication list as of 05-03-14 18:49 Attention: If you have any medications at [...] Electronically Signed By: CINTIA KILGORE MD Signed On:03-MAY-2014 18:48:42 Additional Information: Source: [facility] [employer] Document Id: [id number] Miscellwalter - Anne Marie Tuttle L.P.N. - 05/03/2014 6:24 PM CDT Ambulatory Vitals Height Weight Ambulatory Vitals Height Weight Entered On: 05/03/2014 18:24 CDT Performed On: 05/03/2014 18:24 CDT by ANNE MARIE TUTTLE LPN, RT Vitals/Ht/Wt Systolic Blood Pressure : 152 mmHg (HI) Diastolic Blood Pressure : 76 mmHg NIBP Mean : 101 mmHg BP Location : Left upper extremity Blood Pressure Cuff Size : Large Height : 185 cm(Converted to: 6 ft 1 inch(es), 73 inch(es)) ANNE MARIE TUTTLE LPN, RT - 05/03/2014 18:24 CDT [facility] Document Id: [id number] CDT!8 Lulycellaneous - Anne Marie Tuttle LPiliP.N. - 05/03/2014 6:08 PM CDT Adult Phd Internship Intake/History Adult Phd Internship Intake/History Entered On: 05/03/2014 18:12 CDT Performed On: 05/03/2014 18:08 CDT by ANNE MARIE TUTTLE LPN, RT Intake Chief Complaint : f/u BP Temperature Core : 36.0 DegC(Converted to: 96.8 DegF) (LOW) Peripheral Pulse Rate : 50 /min (LOW) Systolic Blood Pressure : 168 mmHg (>HHI) Diastolic Blood Pressure : 82 mmHg NIBP Mean : 111 mmHg BP Location : Left upper extremity Blood Pressure Cuff Size : Large Height : 185 cm(Converted to: 6 ft 1 inch(es), 73 inch(es)) Actual Weight : 160.8 kg(Converted to: 354 lb 8 oz) Weight Source : Standing scale Dosing Weight Clinic : 160.8 kg Clinic BSA : 2.87 Body Mass Index : 46.98 kg/m2 ANNE MARIE TUTTLE LPN, RT - 05/03/2014 18:08 CDT General Info Information Given By : Patient Preferred Communication Mode : Verbal Languages : Latvian Is Patient Female and 13-50 no hysterectomy : No ANNE MARIE TUTTLE LPN, RT - 05/03/2014 18:08 CDT Subjective Pain Symptoms : No ANNE MARIE TUTTLE LPN, RT - 05/03/2014 18:08 CDT Dependent Habits Tobacco Use/Currently Using : No Smoking Status : Never smoker ANNE MARIE TUTTLE LPN, RT - 05/03/2014 18:08 CDT Tobacco Use Grid Last Use : never ANNE MARIE TUTTLE LPN, RT - 05/03/2014 18:08 CDT Caffeine Use Grid Caffeine Use : Current Type : Coffee, Soft drinks Frequency : Weekly Amount : soda- weekly; coffee- 1x/week ANNE MARIE TUTTLE LPN, RT - 05/03/2014 18:08 CDT Recreational Drug Use Grid Drug Use : None ANNE MARIE TUTTLE LPN, RT - 05/03/2014 18:08 CDT Source: [facility] POWERCHART Document Id: [id number] CDT!38 documented in this encounter Plan of Treatment Not on filedocumented as of this encounter Procedures Procedure Name Priority Date/Time Associated Diagnosis Comme nts HEMOGLOBIN A1C, B Routine 05/03/2014 7:10 PM Resu lts for this CDT procedure are i n the results section. documented in this encounter Results (ABNORMAL) Hemoglobin A1c (05/03/2014 7:10 PM CDT) P athologist Signature Hemoglobin A1c, 8.2 (H) <=5.6 A1C POWERCHART B Specimen (Source) Anatomical Collection Method Collection Time Re ceived Time Location / / Volume Laterality Blood 05/03/2014 7:10 PM CDT Cintia Copeland M.D. LAB BLOOD ADD-ON Performing Organization Address City/State/ZIP Code Phon e Number POWERCHART documented in this encounter Visit Diagnoses Not on filedocumented in this encounter Additional Health Concerns Assessment Noted Time PHQ-9 Depression Total Score: 18 02/14/2013 9:53 AM CD T documented as of this encounter
--- OUTSIDE RECORDS SUMMARY | 2022-07-29 10:54 | XMS_ITS | Encounter Summary ---
:1960 Author Organization [facility] Address [address] [place] [address] Care Team Providers Name Role Phone Unavailable Primary Care Provider Unavailable Encounter Details Date Type Department Care Team Description 01/04/2014 Hospital Encounter HX [facility] Cintia Cobb M.D. [address] [place] [phone] (Wo rk) Social History Tobacco Use [...] - - Height 185 cm (6' 0.84) 01/04/2014 11:00 AM CDT Body Mass Index - - documented in this encounter Miscellaneous Notes Miscellaneous - Ana Cristina Ferrell, RPiliN. - 12/22/2013 3:44 PM CDT General Message Document Contains Addenda Addendum by CINTIA KILGORE MD on 03 January 2014 12:54:37 CDT From: CINTIA KILGORE MD To: ANA CRISTINA FERRELL RN; Sent: 01/03/2014 12:54:37 CDT Subject: RE: General Message Thanks for update. Addendum by ANA CRISTINA FERRELL RN on 03 January 2014 12:25:10 CDT From: ANA CRISTINA FERRELL RN To: CINTIA KILGORE MD; Sent: 01/03/2014 12:25:10 CDT Subject: RE: General Message I spoke with his . She is going to check with him and call us back. Thanks Addendum by CINTIA KILGORE MD on 30 December 2013 10:15:32 CDT From: CINTIA KILGORE MD To: ANA CRISTINA FERRELL RN; Sent: 12/30/2013 10:15:32 CDT Subject: RE: General Message Has this been rescheduled? Cintia Segura From: ANA CRISTINA FERRELL RN To: CINTIA KILGORE MD; Sent: 12/22/2013 15:44:14 CDT Subject: General Message Hi Dr. Song, just wanted to let you know that Ed was a no show for his echocardiogram today. I did leave a message for him to call to reschedule. Source: [facility] POWERCHART Document Id: [id number] documented in this encounter Plan of Treatment Not on filedocumented as of this encounter Visit Diagnoses Not on filedocumented in this encounter Additional Health Concerns Assessment Noted Time PHQ-9 Depression Total Score: 18 02/14/2013 9:53 AM CD T documented as of this encounter
--- OUTSIDE RECORDS SUMMARY | 2022-07-29 10:54 | XMS_ITS | Encounter Summary ---
:1960 Author Organization [facility] Address [address] [place] [address] Care Team Providers Name Role Phone Unavailable Primary Care Provider Unavailable Encounter Details Date Type Department Care Team Description 10/03/2014 Hospital Encounter HX [facility] Cintia Cobb M.D. [address] [place] [phone] (Wo rk) Social History Tobacco Use [...] - - Height 185 cm (6' 0.84) 10/03/2014 7:52 PM ASSISTANT QUALITY MANAGER Body Mass Index - - documented in this encounter Miscellaneous Notes Miscellaneous - Cintia Cobb M.D. - 10/06/2014 2:30 PM ASSISTANT QUALITY MANAGER lab results From: CINTIA KILGORE MD To: CINTIA KILGORE MD; Sent: 10/06/2014 14:30:36 ASSISTANT QUALITY MANAGER Subject: lab results Spoke with patient re: lab results. A1c looks very good at 7.2. Kidney function is still elevated at1.34, but has not significantly changed. He is also spilling extra protein into his urine. Discussedthat in the future, we will need to have him see a nephrology, but first we will continue to pursue the gastric bypass vs lap band procedure. Source: [facility] POWERCHART Document Id: [id number] Electronically signed by Conversion, [facility] Shoemaker Apprentice [id number] at 02/01/2017 2:05 PM CDT Miscellaneous - Cintia Cobb M.D. - 10/06/2014 2:26 PM ASSISTANT QUALITY MANAGER F/U on referral Document Contains Addenda Addendum by CINTIA KILGORE MD on 09 October 2014 13:42:37 ASSISTANT QUALITY MANAGER From: CINTIA KILGORE MD To: NICHELLE NATHAN; Sent: 10/09/2014 13:42:37 ASSISTANT QUALITY MANAGER Subject: RE: F/U on referral Thanks. Dneton! Addendum by NICHELLE NATHAN on 09 October 2014 13:17:36 ASSISTANT QUALITY MANAGER From: NICHELLE NATHAN To: CINTIA KILGORE MD; Sent: 10/09/2014 13:17:36 ASSISTANT QUALITY MANAGER Subject: RE: F/U on referral Patient [facility]. Addendum by NICHELLE NATHAN on 09 October 2014 08:01:25 ASSISTANT QUALITY MANAGER From: NICHELLE NATHAN To: CINTIA KILGORE MD; Sent: 10/09/2014 08:01:25 ASSISTANT QUALITY MANAGER Subject: RE: F/U on referral I did attempt to call him, no answer again. It doesn't appear he has VM, so we are not able to leavehim a message either. Addendum by CINTIA KILGORE MD on 06 October 2014 20:29:14 ASSISTANT QUALITY MANAGER From: CINTIA KILGORE MD To: NICHELLE NATHAN; Sent: 10/06/2014 20:29:14 ASSISTANT QUALITY MANAGER Subject: RE: F/U on referral Was patient updated with this info? Cintia Segura Addendum by NICHELLE NATHAN on 06 October 2014 15:52:27 ASSISTANT QUALITY MANAGER From: NICHELLE NATHAN To: NICHELLE NATHAN; Sent: 10/06/2014 15:52:27 ASSISTANT QUALITY MANAGER Subject: FW: F/U on referral Cintia from [facility], called back to report that she was not successful in reaching patient. She asked that I note that they did attempt to call and if he wishes to call them directly he can do so [phone]. Addendum by NICHELLE NATHAN on 06 October 2014 15:29:30 ASSISTANT QUALITY MANAGER From: NICHELLE NATHAN To: CINTIA KILGORE MD; Sent: 10/06/2014 15:29:30 ASSISTANT QUALITY MANAGER Subject: RE: F/U on referral I contacted [facility] , referral dept. on 10/04/14. (I am sorry, I thought I had updated chart) I was advised they had not received the request I submitted through their web-site, claiming this happens sometimes. I then faxed the request to them. I contacted the Bariatric department directly today and was transferred back to their referrals department. Long story short, they had the patients info but were not clear where it was at. I spoke to someone by the name of Cintia and she assured me she would call the patient and she asked that I resend the fax I sent on Thursday. I tried calling patient to explain but there was no answer. From: CINTIA KILGORE MD To: NICHELLE NATHAN; Sent: 10/06/2014 14:26:32 ASSISTANT QUALITY MANAGER Subject: F/U on referral Patient has not yet heard from [facility] re: gastric banding consult appt. Can you look into this? Thanks, Cintia [facility] Document Id: [id number] Electronically signed by Conversion, [facility] Shoemaker Apprentice [id number] at 02/01/2017 2:05 PM CDT Miscellaneous - Conversion, Historical Provider Ser - 10/03/2014 11:59 PM ASSISTANT QUALITY MANAGER Coding Summary-Paper Based CODING DATE: 10/09/2014 FINAL [place] [facility] STATUS: * Discharged to Home or Self Care PAYOR: Medicaid ADMIT DX: 250.00 Diabetes Mellitus without Mention of Complication, Type II or Unspecified Type, Not Stated as Uncontrolled REASON FOR VISIT DX: 250.00 Diabetes Mellitus without Mention of Complication, Type II or Unspecified Type, Not Stated as Uncontrolled FINAL DX: PRINCIPAL: 250.00 Diabetes Mellitus without Mention of Complication, Type II or Unspecified Type, Not Stated as Uncontrolled SECONDARY: PROCEDURES DOCTOR NAME DATE NOTE: The code number assigned matches the documented diagnosis and / or procedure in the patient's chart. However, the narrative phrase printed from the coding software may appear abbreviated, or result in slightly different terminology. Coded By: CLARKE BLISS Date Saved: 10/09/2014 12:51 pm Source: [facility] Document Id: [id number] documented in this encounter Plan of Treatment Not on filedocumented as of this encounter Procedures Procedure Name Priority Date/Time Associated Comments Diagnosis ALBUMIN, RANDOM, U Routine 10/03/2014 5:00 PM Res ults for this ASSISTANT QUALITY MANAGER procedure are i n the results section. HEMOGLOBIN A1C, B Routine 10/03/2014 5:00 PM Resu lts for this ASSISTANT QUALITY MANAGER procedure are i n the results section. BASIC METABOLIC Routine 10/03/2014 5:00 PM Result s for this PANEL, S/P ASSISTANT QUALITY MANAGER procedure are i n the results section. documented in this encounter Results (ABNORMAL) Microalbumin, Random, Urine (10/03/2014 5:00 PM ASSISTANT QUALITY MANAGER) [facility] Time Signature HXU Albumin % 1566.4 (H) 12.0 - POWERCHART 30.0 MGL Creatinine, 91.9 30.0 - POWERCHART Random, U 125.0 MGDL Albumin/Creati 1704 (H) 0 - 25 POWERCHART nine Ratio MGGM Specimen (Source) Anatomical Collection Method Collection Time Re ceived Time Location / / Volume Laterality Urine 10/03/2014 5:00 PM ASSISTANT QUALITY MANAGER Cintia Copeland M.D. LAB URINE ORDERABLES Performing Organization Address City/State/ZIP Code Phon e Number POWERCHART (ABNORMAL) Hemoglobin A1c (10/03/2014 5:00 PM ASSISTANT QUALITY MANAGER) P athologist Signature Hemoglobin A1c, 7.2 (H) <=5.6 A1C POWERCHART B Specimen (Source) Anatomical Collection Method Collection Time Re ceived Time Location / / Volume Laterality Blood 10/03/2014 5:00 PM ASSISTANT QUALITY MANAGER Cintia Copeland M.D. LAB BLOOD ADD-ON Performing Organization Address City/[facility] Phon e Number POWERCHART (ABNORMAL) BMP (Basic Metabolic Panel) (10/03/2014 5:00 PM ASSISTANT QUALITY MANAGER) Analysis Performed At Patho logist Time Signature Anion Gap 12 10 - 20 POWERCHART MMOLL BUN (Blood Urea 34 (H) 7 - 18 POWERCHART Nitrogen), S MGDL Chloride, S 98 98 - 107 POWERCHART [facility] CO2 Total 29.3 (H) 23.0 - POWERCHART 29.0 MMOLL Creatinine 1.34 (H) 0.60 - POWERCHART 1.30 MGDL Glucose 134 70 - 139 POWERCHART MGDL Calcium, Total, 10.0 8.6 - 10.0 POWERCHART S MGDL Sodium, S 135.4 135.0 - POWERCHART 145.0 MMOLL Potassium, S 4.1 3.6 - 4.8 POWERCHART MMOLL HXeGFR (MDRD) 55 (L) >=60 POWERCHART [id number] eGFR >60 >=60 POWERCHART Black/ [id number] [place] Specimen (Source) Anatomical Collection Method Collection Time Re ceived Time Location / / Volume Laterality Blood 10/03/2014 5:00 PM ASSISTANT QUALITY MANAGER Cintia Copeland M.D. LAB BLOOD ADD-ON Performing Organization Address City/State/ZIP Code Phon e Number POWERCHART documented in this encounter Visit Diagnoses Not on filedocumented in this encounter Additional Health Concerns Assessment Noted Time PHQ-9 Depression Total Score: 18 02/14/2013 9:53 AM CD T documented as of this encounter
--- OUTSIDE RECORDS SUMMARY | 2022-07-29 10:54 | XMS_ITS | Encounter Summary ---
:1960 Author Organization [facility] Address [address] [place] [address] Care Team Providers Name Role Phone Unavailable Primary Care Provider Unavailable Encounter Details Date Type Department Care Team Description 04/10/2014 Hospital Encounter [facility] Cintia lindquist M.D. [address] [place] [phone] (Wo rk) Social History Tobacco Use Types Packs/Day Years Used Date Smoking Tobacco: Never Assessed Sex Assigned at Date Recorded Not on file documented as of this encounter Last Filed Vital Signs Vital Sign Reading Time Taken Comments Blood Pressure 156/74 04/10/2014 10:44 AM CDT Pulse 52 04/10/2014 10:44 AM CDT Temperature - - Respiratory Rate - - Oxygen Saturation - - Inhaled Oxygen Concentration - - Weight - - Height 185 cm (6' 0.84) 04/10/2014 10:44 AM CDT Body Mass Index - - documented in this encounter Miscellaneous Notes Miscellaneous - Alvina Roberts, L.P.N. - 04/10/2014 10:44 AM CDT Ambulatory Vitals Height Weight Ambulatory Vitals Height Weight Entered On: 04/10/2014 10:44 CDT Performed On: 04/10/2014 10:44 CDT by ALVINA ROBERTS [employer] SUPERVISOR Vitals/Ht/Wt Peripheral Pulse Rate : 52 /min (LOW) Systolic Blood Pressure : 156 mmHg (HI) Diastolic Blood Pressure : 74 mmHg NIBP Mean : 101 mmHg BP Location : Left upper extremity Blood Pressure Cuff Size : Large Height : 185 cm(Converted to: 6 ft 1 inch(es), 73 inch(es)) ALVINA ROBERTS LPN - 04/10/2014 10:44 CDT Source: [employer] Document Id: [id number]!9 documented in this encounter Plan of Treatment Not on filedocumented as of this encounter Visit Diagnoses Not on filedocumented in this encounter Additional Health Concerns Assessment Noted Time PHQ-9 Depression Total Score: 18 02/14/2013 9:53 AM CD T documented as of this encounter
--- OUTSIDE RECORDS SUMMARY | 2022-07-29 10:54 | XMS_ITS | Encounter Summary ---
:1960 Author Organization [facility] Address [address] [place] [address] Care Team Providers Name Role Phone Unavailable Primary Care Provider Unavailable Encounter Details Date Type Department Care Team Description 12/16/2013 Hospital Encounter HX [facility] Cintia Aguirre M.D. [address] [place] [phone] (Wo rk) Social History Tobacco Use [...] - - Height 185 cm (6' 0.84) 12/16/2013 8:08 AM CDT Body Mass Index - - documented in this encounter Progress Notes Cintia Cobb M.D. - 12/16/2013 8:07 AM CDT [id number] CHIEF COMPLAINT Follow up blood pressure, leg swelling. HISTORY OF PRESENT ILLNESS Ed is a 53-year-old male who comes in today to follow up on his blood pressure. The last time we saw him we started amlodipine as well as Lasix. He states that he might be urinating a little bit more with the Lasix. He has had no definite side effects with that or the amlodipine. He does note, however, that the back of his left leg from the thigh to the knee it is hard at times. It also is sore. It has been ongoing for the past 5 days. He also thinks that maybe he has gained more weight but on review of our records he is actually down about 4 pounds. He has had no change in shortness of breath and he denies any chest pain. In regards to his blood sugars it was 77 this morning and in the evening it has been 126 to 160. CURRENT MEDICATIONS Reconciled. We are going to go up on the Lasix to 40 mg daily. Patient also got a shot of Lovenox at1.5 mg per kg subcutaneous. ALLERGIES Cipro. Influenza. SYSTEMS REVIEW As per HPI. VITAL SIGNS Temperature 36.2. Pulse is 54 beats per minute. Respiratory rate is 16 breaths per minute. Blood pressure is 164/82. Recheck is 151/84. Oxygen saturation 91% on room air. Weight is 159 kg. PHYSICAL EXAMINATION GENERAL: Patient is alert and oriented, in no acute distress. CARDIOVASCULAR EXAM: Regular rate and rhythm. Normal S1, S2. No murmurs, rubs, or gallops. LUNGS: Clear to auscultation bilaterally. EXTREMITIES: Patient has significant edema in his legs. He is unable to take off his boots today because he tells me he may not be able to zip them back up. His lower leg has a secondary erythematous appearance. Palpation of the left leg he does have some thick woody edema to a posterior thigh and popliteal fossa. There is minimal tenderness to palpation of the calf muscle. When I measure patient's left mid belly of the calf it is 49.5 cm, when I measure the right it is 54.5 cm. LABORATORY DATA Hemoglobin is 15.0, white count is 8400, platelet count is 180,000. CMP shows a sodium of 135.9, potassium 3.7, chloride is 97 bicarb is 30. BUN 22. Creatinine is 1.15. Blood sugar is 261. Calcium 9.1.ProBNP was 428. D-dimer was elevated at 0.67. IMPRESSION/REPORT/PLAN 1. Bilateral pedal edema with change to the left lower extremity swelling. 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 Since we are not able to do an ultrasound tonight as it is after hours, we are going to give patient a shot of Lovenox and have him return tomorrow morning first thing to do a Doppler ultrasound. Also, because of these symptoms we are going to get an echocardiogram. His proBNP today is elevated up over 400. Previously Iwas concerned that some bradycardia could be leading to heart failure. Patient is not quite as bradycardic today but still down in the 50s. 2. Benign essential hypertension. Patient's blood pressure continues to be elevated. We are going toincrease his Lasix and continue to monitor. 3. Bradycardia. This is a little bit improved since we decreased the metoprolol. We will monitor foranother week before we decide to lower that further. PATIENT EDUCATION Ready to learn. No apparent learning barriers were identified. Learning preferences include listening. Explained diagnosis and treatment plan. Patient/Child/Caregiver expressed understanding of the content. Cintia Song M.D./caron Electronically Signed By: CINTIA KILGORE MD On: 12/27/2013 09:22 AM Source: [facility] MHSDOLBEYNONRADSYS Document Id: [id number] documented in this encounter Miscellaneous Notes Miscellaneous - Cintia Cobb M.D. - 12/16/2013 3:11 PM CDT US results Document Contains Addenda Addendum by ANOOP QUEVEDO LPN on 19 December 2013 09:25:19 CDT Spoke with patients who has PHI she was updated on results and will inform patient From: CINTIA KILGORE MD To: JOSIE CASTANEDA LPN, RT; Sent: 12/16/2013 15:11:13 CDT Subject: US results Attempted to call patient to let him know that ultrasound of leg was negative for DVT. There was no answer and no voicemail. Source: [facility] POWERCHART Document Id: [id number] Electronically signed by Dayami [facility] Benefits Consulting Analyst [id number] at 02/03/2017 8:59 AM CDT documented in this encounter Plan of Treatment Not on filedocumented as of this encounter Visit Diagnoses Not on filedocumented in this encounter Additional Health Concerns Assessment Noted Time PHQ-9 Depression Total Score: 18 02/14/2013 9:53 AM CD T documented as of this encounter
--- OUTSIDE RECORDS SUMMARY | 2022-07-29 10:54 | XMS_ITS | Encounter Summary ---
:1960 Author Organization [facility] Address [address] [place] [address] Care Team Providers Name Role Phone Unavailable Primary Care Provider Unavailable Encounter Details Date Type Department Care Team Description 08/24/2014 Hospital Encounter HX [facility] Cintia Aguirre M.D. [address] [place] [phone] (Wo rk) Social History Tobacco Use Types Packs/Day Years Used Date Smoking Tobacco: Never Assessed Sex Assigned at Date Recorded Not on file documented as of this encounter Last Filed Vital Signs Vital Sign Reading Time Taken Comments Blood Pressure 131/72 08/24/2014 6:30 PM REEFER ENGINEER Pulse 49 08/24/2014 6:22 PM REEFER ENGINEER Temperature - - Respiratory Rate - - Oxygen Saturation - - Inhaled Oxygen Concentration - - Weight 156 kg (343 lb 14.7 oz) 08/24/2014 6:22 PM REEFER ENGINEER Height 185 cm (6' 0.84) 08/24/2014 6:30 PM REEFER ENGINEER Body Mass Index 45.58 08/24/2014 6:22 PM REEFER ENGINEER documented in this encounter Progress Notes Cintia Cobb M.D. - 08/24/2014 5:44 PM CST [id number] CHIEF COMPLAINT/REASON FOR VISIT Follow up diabetes. HISTORY OF PRESENT ILLNESS Ed is a 54-year-old male who comes in today to follow up on diabetes and discuss his recent post appointment of his bariatric surgery. Unfortunately, the surgeon did not feel comfortable moving forward because Ed's conditions are not under complete control. This being said, he has actually made significant progress in the last 2 weeks. Blood pressures are the best they have been in a very long time and patient's weight continues to go down. Blood sugars have also been doing well and actually almost getting low. He states his lowest in the morning has now been 59 and it will get up to about 114. In fact, in the evening hours it is usually 114 to 120. He states he did have one high up at 238 after eating some kettle corn. His breathing is doing very well and he has had no cough or chills.Leg swelling is also good. He states that he did not wear his tight socks today but he noted when hewent to put on his boots to come to this appointment, they were still looser than normal. He continues with the Lasix 20 mg in the morning and 60 mg in the evening. He tells me that he was obviously very disappointed that they decided not to do his bariatric surgery which was originally scheduled for tomorrow. When he spoke with Dr. Saez, he tells me that he did not mince words and he told him that he did not think he would be returning. He does question if I could refer him to a program perhaps at the [facility]. He is uncertain if insurance would approve him to have the surgery in the 2014 calendar year. MEDICATIONS Reconciled. No changes. ALLERGIES Cipro. Influenza virus. SYSTEMS REVIEW As per HPI. VITAL SIGNS Temperature 36.1, pulse is 49 beats per minute, blood pressure is 139/70, recheck is 131/72. Height is 185 cm, weight is 156 kg. BMI is 45.5. PHYSICAL EXAMINATION GENERAL: Patient is alert and oriented, in no acute distress. CARDIOVASCULAR: Regular rate and rhythm, bradycardia. S1 and S2. No murmurs, rubs, or gallops. LUNGS: Clear to auscultation bilaterally. EXTREMITIES: Pedal edema +1 bilaterally. IMPRESSION/REPORT/PLAN 1. Medically complicated obesity. I discussed with the patient that I certainly could refer him to the bariatric surgery program up at the [facility], but I think he would likely have to start all the way at the beginning again and he has already completed all of that work with [facility]. I cer tainly respect his decision if that is where he prefers to go, but I strongly encouraged him to reconsider going to [facility] because I do feel that his problems are coming under control and his surgery was not necessarily canceled so much as postponed until we could get things to be a little more stable. The patient reports that he does not want to see the same surgeon but he would be willing to seeanother surgeon at [facility]. At this point, I will e-mail Dr. Saez and see what our next step is. Hopefully we would be able to get him back in with a surgeon within the near future especially since patient's numbers have been looking so good and hopefully get this surgery set up again in the near future. Patient felt comfortable with this plan. 2. Type 2 diabetes. I am actually a little worried that his morning sugars are almost getting too low. He is to call us and let us know if his numbers are consistently less than 80 in the morning. Otherwise, we will continue his current medications, Lantus 80 units a day and the metformin. He does have some questions about perhaps go to [facility] and cutting back on his insulin. I reported, at this point, since things do seem to be coming under better control I would be hesitant to make any changes before we know exactly what is going to happen with his bariatric surgery. He voices understanding. 3. Hypertension. Patient's blood pressure looks much better than it usually does. We are going to continue his current medications. 4. Pedal edema. Additionally patient's legs are consistently looking better. His weight was down another 3 kg, almost 4 kg, since we saw him 1 week ago. We discussed that all of these things are encouraging and I encouraged him to keep up the good work. Ready to learn. No apparent learning barriers were identified. Learning preferences include listening. Explained diagnosis and treatment plan. Patient/Child/Caregiver expressed understanding of the content. Cintia Song M.D./caron Electronically Signed By: CINTIA KILGORE MD On: 09/04/2014 08:55 AM Source: [facility] MHSDOLBEYNONRADSYS Document Id: [id number] ER ENGINEER documented in this encounter Miscellaneous Notes Miscellaneous - Cintia Cobb M.D. - 08/24/2014 6:59 PM REEFER ENGINEER Ambulatory Patient Summary [address] [place] [id number] Visit Information Name: LAZ LUNA [facility] Number: [id number] Current Date: 08/24/2014 18:59:47 Physicians Attending Provider: CINTIA KILGORE MD Primary [...] (Lantus Solostar Pen 100 units/mL subcutaneous solution) 75 units, Subcutaneous, once a day diabetes liraglutide (Victoza) 1.8 mg, Subcutaneous, once a [...] the Following Medications: Medication list as of 08-24-14 18:59 Attention: If you have any medications at [...] Electronically Signed By: CINTIA KILGORE MD Signed On:24-AUG-2014 18:59:28 Your Allergies & Intolerances Substance Reaction Symptoms [...] appointment detail needed. Your Goals/Additional instructions: Source: [facility] POWERCHART Document Id: [id number] ER ENGINEER Miscellaneous - Cintia Cobb M.D. - 08/24/2014 6:59 PM REEFER ENGINEER Ambulatory Discharge Medication List [address] [place] [id number] Visit Information Name: LAZ LUNA [facility] Number: [id number] Visit Date: 08/24/2014 18:59:45 Attending Provider: CINTIA KILGORE MD Primary Care [...] (Lantus Solostar Pen 100 units/mL subcutaneous solution) 75 units, Subcutaneous, once a day diabetes liraglutide (Victoza) 1.8 mg, Subcutaneous, once a [...] the Following Medications: Medication list as of 08-24-14 18:59 Attention: If you have any medications at [...] Electronically Signed By: CINTIA KILGORE MD Signed On:24-AUG-2014 18:59:28 Additional Information: Source: [facility] ComActivityCHART Document Id: [id number] ER ENGINEER Miscellaneous - Anne Marie Tuttle L.P.N. - 08/24/2014 6:30 PM CST Ambulatory Vitals Height Weight Ambulatory Vitals Height Weight Entered On: 08/24/2014 18:31 REEFER ENGINEER Performed On: 08/24/2014 18:30 REEFER ENGINEER by ANNE MARIE TUTTLE LPN, RT Vitals/Ht/Wt Systolic Blood Pressure : 131 mmHg Diastolic Blood Pressure : 72 mmHg NIBP Mean : 92 mmHg BP Location : Left upper extremity Blood Pressure Cuff Size : Large Height : 185 cm(Converted to: 6 ft 1 inch(es), 73 inch(es)) ANNE MARIE TUTTLE LPN, RT - 08/24/2014 18:30 REEFER ENGINEER Source: [facility] POWERCHART Document Id: [id number] REEFER ENGINEER!8 ER ENGINEER Miscellaneous - Anne Marie Tuttle L.P.NPili - 08/24/2014 6:22 PM CST Adult Liaison Inspection Laboratory Assistant Intake/History Adult Liaison Inspection Laboratory Assistant Intake/History Entered On: 08/24/2014 18:27 REEFER ENGINEER Performed On: 08/24/2014 18:22 REEFER ENGINEER by ANNE MARIE TUTTLE LPN, RT Intake Chief Complaint : f/u Temperature Core : 36.1 DegC(Converted to: 97.0 DegF) (LOW) Peripheral Pulse Rate : 49 /min (<LLOW) Systolic Blood Pressure : 139 mmHg Diastolic Blood Pressure : 70 mmHg NIBP Mean : 93 mmHg BP Location : Left upper extremity Blood Pressure Cuff Size : Large Height : 185 cm(Converted to: 6 ft 1 inch(es), 73 inch(es)) Actual Weight : 156 kg(Converted to: 343 lb 15 oz) Weight Source : Standing scale Dosing Weight Clinic : 156 kg Clinic BSA : 2.83 Body Mass Index : 45.58 kg/m2 ANNE MARIE TUTTLE LPN, RT - 08/24/2014 18:22 REEFER ENGINEER General Info Information Given By : Patient Preferred Communication Mode : Verbal Languages : Czech Is Patient Female and 13-50 no hysterectomy : No ANNE MARIE TUTLTE LPN, RT - 08/24/2014 18:22 REEFER ENGINEER Subjective Pain Symptoms : No ANNE MARIE TUTTLE LPN, RT - 08/24/2014 18:22 REEFER ENGINEER Dependent Habits Tobacco Use/Currently Using : No Smoking Status : Never smoker ANNE MARIE TUTTLE LPN, RT - 08/24/2014 18:22 REEFER ENGINEER Tobacco Use Grid Last Use : never ANNE MARIE TUTTLE LPN, RT - 08/24/2014 18:22 REEFER ENGINEER Caffeine Use Grid Caffeine Use : Current Type : Coffee, Soft drinks Frequency : Weekly Amount : soda- weekly; coffee- 1x/week ANNE MARIE TUTTLE LPN, RT - 08/24/2014 18:22 REEFER ENGINEER Recreational Drug Use Grid Drug Use : None ANNE MARIE TUTTLE LPN, RT - 08/24/2014 18:22 REEFER ENGINEER ID Screen Drug Resistant Organism : No Travel Within Last 21 Days : No ANNE MARIE TUTTLE LPN, RT - 08/24/2014 18:22 REEFER ENGINEER Source: [employer] Document Id: [id number] REEFER ENGINEER!41 ER ENGINEER documented in this encounter Plan of Treatment Not on filedocumented as of this encounter Visit Diagnoses Not on filedocumented in this encounter Additional Health Concerns Assessment Noted Time PHQ-9 Depression Total Score: 18 02/14/2013 9:53 AM CD T documented as of this encounter
--- OUTSIDE RECORDS SUMMARY | 2022-07-29 10:54 | XMS_ITS | Encounter Summary ---
:1960 Author Organization [facility] Address [address] [place] [address] Care Team Providers Name Role Phone Unavailable Primary Care Provider Unavailable Encounter Details Date Type Department Care Team Description 12/07/2013 Hospital Encounter HX [facility] Cintia Aguirre M.D. [address] [place] [phone] (Wo rk) Social History Tobacco Use Types Packs/Day Years Used Date Smoking Tobacco: Never Assessed Sex Assigned at Date Recorded Not on file documented as of this encounter Last Filed Vital Signs Vital Sign Reading Time Taken Comments Blood Pressure 149/86 12/07/2013 5:36 PM CDT Pulse 47 12/07/2013 4:39 PM CDT Temperature - - Respiratory Rate 18 12/07/2013 4:39 PM CDT Oxygen Saturation - - Inhaled Oxygen Concentration - - Weight 161 kg (355 lb 2.6 oz) 12/07/2013 4:39 PM CDT Height - - Body Mass Index 47.07 11/18/2013 4:35 PM CDT documented in this encounter Progress Notes Cintia Cobb M.D. - 12/07/2013 4:34 PM CDT [id number] CHIEF COMPLAINT/REASON FOR VISIT Followup blood pressure. HISTORY OF PRESENT ILLNESS Ed is a 53-year-old male who comes in today to follow up on his blood pressure. We had switched him to chlorthalidone, but unfortunately his insurance did not cover it, so we have switched him back to hydrochlorothiazide. He states that he did not take it for a few weeks. He has not been checking his blood pressure at home. We have noted that his weight is up 20 pounds since we saw him lasttime. He states that he has noticed his pants getting a little bit tighter. He denies any chest pain, and does have occasional shortness of breath if he moves too fast. He sleeps on 2 pillows for comfort. He was also seen in the emergency department for some shoulder pain and given a prescription for t ramadol. He states that 6 hours later he felt funny in his head and then he got some cold sweats anddeveloped tightness in his chest and he threw up. He quit taking the tramadol, because he thought itwas an allergic reaction, and it has not happened since. In regards to his blood sugars, he reports that they have been 96 to 210, and were 130 this morning. He also occasionally has pain in his toes and feet. MEDICATIONS Reconciled. We are going to decrease patient's metoprolol to 100 mg 1/2 tablet by mouth twice a day,and add Lasix 20 mg daily, in addition to amlodipine 5 mg by mouth daily. ALLERGIES Cipro. Influenza virus vaccine. SYSTEMS REVIEW As per HPI. VITAL SIGNS Temperature 36.2, pulse is 47 beats per minute, respiratory rate is 18 breaths per minute, blood pressure is 160/96, recheck was 162/93, on last recheck was 149/86, oxygen saturation is 94% on room air, weight is 151 kg. PHYSICAL EXAMINATION GENERAL: Patient is alert and oriented. He is in no acute distress. CARDIOVASCULAR: Bradycardia, S1 and S2. No murmurs, rubs, or gallops. LUNGS: Clear to auscultation bilaterally. EXTREMITIES: Patient has 3+ pedal edema. IMPRESSION/REPORT/PLAN 1. Benign essential hypertension. Patient's blood pressure continues to be elevated. We are going tocontinue with the hydrochlorothiazide and add on amlodipine, as well as Lasix, due to his significant edema. We discussed that the biggest side effect with amlodipine is actually swelling in his legs. He needs to let us know if that happens. We will have him return in 2 weeks. 2. Bradycardia. We are going to decrease his metoprolol. I have some concerns that his slow rate maybe causing some mild heart failure, although his lungs are clear today. 3. Weight gain. Some of this may be water weight. We are going to add Lasix, and will recheck in 2 weeks. 4. Type 2 diabetes. Patient likely has some neuropathy. We discussed the possibility of starting gabapentin, but as we are starting 2 other new medicines today I think we will further discuss that at his next visit. PATIENT EDUCATION Ready to learn. No apparent learning barriers were identified. Learning preferences include listening. Explained diagnosis and treatment plan. Patient/Child/Caregiver expressed understanding of the content. Cintia Song M.D./caron Electronically Signed By: CINTIA KILGORE MD On: 12/20/2013 09:48 PM Source: [facility] MHSDOLBEYNONRADSYS Document Id: [id number] documented in this encounter Miscellaneous Notes Miscellaneous - Anne Marie Tuttle, L.P.N. - 12/07/2013 5:36 PM CDT Ambulatory Vitals Height Weight Ambulatory Vitals Height Weight Entered On: 12/07/2013 17:38 CDT Performed On: 12/07/2013 17:36 CDT by ANNE MARIE TUTTLE LPN, Vitals/Ht/Wt Systolic Blood Pressure : 149 mmHg (HI) Diastolic Blood Pressure : 86 mmHg NIBP Mean : 107 mmHg BP Location : Left upper extremity Blood Pressure Cuff Size : Large ANNE MARIE TUTTLE LPN, RT - 12/07/2013 17:36 CDT Source: [facility] POWERCHART Document Id: [id number] CDT!7 Miscellaneous - Cintia Cobb M.D. - 12/07/2013 5:28 PM CDT Ambulatory Patient Summary [address] [place], [place] [id number] Visit Information Name: LAZ LUNA [facility] Number: [id number] Current Date: 12/07/2013 17:28:39 Physicians Attending Provider: CINTIA KILGORE MD Primary Care Provider: CINTIA KILGORE MD LUNALAZ has been given the following list of [...] Tablet(s), Oral, once a day amLODIPine (amLODIPine 5 mg oral tablet) 1 Tablet(s), Oral, once a day New Routed to [address] [address] docusate-senna (Dok Plus) 2 Tablet(s), Oral, once a day furosemide (Lasix 20 mg oral tablet) 1 Tablet(s), Oral, once a day New Routed to [address] [address] hydrochlorothiazide (hydrochlorothiazide 25 mg oral tablet) 1 Tablet(s), Oral, once a day to replacechlorthalidone as Prior Auth was denied.Please update pt New hydrocortisone topical (hydrocortisone 2.5% topical lotion) 1 [...] a day with meals metoprolol (metoprolol tartrate 100 mg oral tablet) 0.5 Tablet(s), Oral, two times a day This is a CHANGE omeprazole (omeprazole 20 mg oral delayed release capsule) 1 cap, Oral, once a day simvastatin (simvastatin 40 mg oral tablet) 1 Tablet(s), Oral, once a day (at bedtime) tadalafil (Cialis 20 mg oral tablet) 1 Tablet(s), Oral, once a day as needed for erectile dysfunction Take as needed prior to anticipated sexual activity Stop Taking the Following Medications: Medication list as of 12-07-13 17:28 Attention: If you have any medications at home that are not on this list, DO NOT take them until youcontact your provider for clarification. Give a copy of your medication list to your primary care provider. Update your medication list any time medications or doses are changed and carry your medication list at all times in case of emergency. Your Allergies & Intolerances Substance Reaction Symptoms [...] unknown Tinea cruris. Active 09/30/13 onset unknown Active 05/05/2013 12/03/13 Unspecified adjustment reaction Your Upcoming Appointments Date Time Location Reason Provider 12/14/2013 17:15 [facility] PT/OT rt shoulder impingment Ade Gandhi Attention: Contact your local Clinic if further appointment detail needed. Your Goals/Additional instructions: Source: [facility] POWERCHART Document Id: [id number] Miscellaneous - Cintia Cobb M.D. - 12/07/2013 5:28 PM CDT Ambulatory Discharge Medication List [facility] [address] [facility] [place], [place] [id number] Visit Information Name: LAZ LUNA [facility] Number: [id number] Visit Date: 12/07/2013 17:28:37 Attending Provider: CINTIA KILGORE MD Primary Care [...] Tablet(s), Oral, once a day amLODIPine (amLODIPine 5 mg oral tablet) 1 Tablet(s), Oral, once a day New Routed to [address] [address] docusate-senna (Dok Plus) 2 Tablet(s), Oral, once a day furosemide (Lasix 20 mg oral tablet) 1 Tablet(s), Oral, once a day New Routed to [address] [address] hydrochlorothiazide (hydrochlorothiazide 25 mg oral tablet) 1 Tablet(s), Oral, once a day to replacechlorthalidone as Prior Auth was denied.Please update pt New hydrocortisone topical (hydrocortisone 2.5% topical lotion) 1 [...] a day with meals metoprolol (metoprolol tartrate 100 mg oral tablet) 0.5 Tablet(s), Oral, two times a day This is a CHANGE omeprazole (omeprazole 20 mg oral delayed release capsule) 1 cap, Oral, once a day simvastatin (simvastatin 40 mg oral tablet) 1 Tablet(s), Oral, once a day (at bedtime) tadalafil (Cialis 20 mg oral tablet) 1 Tablet(s), Oral, once a day as needed for erectile dysfunction Take as needed prior to anticipated sexual activity Stop Taking the Following Medications: Medication list as of 12-07-13 17:28 Attention: If you have any medications at home that are not on this list, DO NOT take them until youcontact your provider for clarification. Give a copy of your medication list to your primary care provider. Update your medication list any time medications or doses are changed and carry your medication list at all times in case of emergency. Additional Information: [facility] Document Id: [id number] Miscellaneous - Anne Marie Tuttle, L.P.N. - 12/07/2013 4:51 PM CDT Ambulatory Vitals Height Weight Ambulatory Vitals Height Weight Entered On: 12/07/2013 16:51 CDT Performed On: 12/07/2013 16:51 CDT by ANNE MARIE TUTTLE LPN, RT Vitals/Ht/Wt Systolic Blood Pressure : 162 mmHg (>HHI) Diastolic Blood Pressure : 93 mmHg (>HHI) NIBP Mean : 116 mmHg BP Location : Left upper extremity Blood Pressure Cuff Size : Large ANNE MARIE TUTTLE LPN, RT - 12/07/2013 16:51 CDT Source: [facility] POWERCHART Document Id: [id number] CDT!7 Miscellaneous - Anne Marie Tuttle L.P.N. - 12/07/2013 4:39 PM CDT Adult Algology Teacher Intake/History Adult Algology Teacher Intake/History Entered On: 12/07/2013 16:42 CDT Performed On: 12/07/2013 16:39 CDT by ANNE MARIE TUTTLE LPN, RT Intake Chief Complaint : f/u BP Temperature Core : 36.2 DegC(Converted to: 97.2 DegF) (LOW) Peripheral Pulse Rate : 47 /min (<LLOW) Respiratory Rate : 18 /min Systolic Blood Pressure : 160 mmHg (HI) Diastolic Blood Pressure : 96 mmHg (>HHI) NIBP Mean : 117 mmHg BP Location : Left upper extremity Blood Pressure Cuff Size : Large SpO2 : 94 % Actual Weight : 161.1 kg(Converted to: 355 lb 3 oz) Weight Source : Standing scale Dosing Weight Clinic : 161.1 kg ANNE MARIE TUTTLE LPN, RT - 12/07/2013 16:39 CDT General Info Information Given By : Patient Preferred Communication Mode : Verbal Languages : Swedish ANNE MARIE TUTTLE LPN, RT - 12/07/2013 16:39 CDT Subjective Pain Symptoms : Yes ANNE MARIE TUTTLE LPN, 12/07/2013 16:39 CDT Pain Pain Assessment Grid Pain 1 Location : Shoulder Laterality : Right ANNE MARIE TUTTLE LPN, RT - 12/07/2013 16:39 CDT Dependent Habits Tobacco Use/Currently Using : No Smoking Status : Never smoker ANNE MARIE TUTTLE LPN, 12/07/2013 16:39 CDT Tobacco Use Grid Last Use : never ANNE MARIE TUTTLE LPN, 12/07/2013 16:39 CDT Caffeine Use Grid Caffeine Use : Current Type : Coffee, Soft drinks Frequency : Weekly Amount : soda- weekly; coffee- 1x/week ANNE MARIE TUTTLE LPN, RT - 12/07/2013 16:39 CDT Recreational Drug Use Grid Drug Use : None ANNE MARIE TUTTLE LPN, 12/07/2013 16:39 CDT Source: [employer] Document Id: [id number] CDT!41 Miscellaneous - Conversion, Historical Provider Ser - 11/28/2013 1:13 PM CDT Med Management Document Contains Addenda Addendum by CINTIA KILGORE MD on 28 November 2013 14:12:59 CDT From: CINTIA KILGORE MD Sent: 11/28/2013 14:12:58 CDT Subject: RE:Med Management Approved Order:allopurinol (allopurinol 300 mg oral tablet) 1 tab(s) PO Daily Qty: 90 tab(s) Duration: 90 day(s) Refills: 3 Substitutions Allowed Route To [id number] Signed by CINTIA KILGORE MD 11/28/2013 14:12:53 From: OLIVIA BECERRA V To: CINTIA KILGORE MD; OLIVIA BECERRA V; Sent: 11/28/2013 13:13:19 CDT Subject: Med Management On hold pending signature Order:allopurinol (allopurinol 300 mg oral tablet) 1 tab(s) PO Daily Qty: 90 tab(s) Duration: 90 day(s) Refills: 3 [address] Route To [id number] Source: [facility] POWERCHART Document Id: [id number] documented in this encounter Plan of Treatment Not on filedocumented as of this encounter Visit Diagnoses Not on filedocumented in this encounter Additional Health Concerns Assessment Noted Time PHQ-9 Depression Total Score: 18 02/14/2013 9:53 AM CD T documented as of this encounter
--- OUTSIDE RECORDS SUMMARY | 2022-07-29 10:54 | XMS_ITS | Encounter Summary ---
:1960 Author Organization [facility] Address [address] [place] [address] Care Team Providers Name Role Phone Unavailable Primary Care Provider Unavailable Encounter Details Date Type Department Care Team Description 03/06/[address] [facility] Song FlCintia domingo M.D. [address] [place] [phone] (Wo rk) Social History Tobacco Use Types Packs/Day Years Used Date Smoking Tobacco: Never Assessed Sex Assigned at Date Recorded Not on file documented as of this encounter Last Filed Vital Signs Vital Sign Reading Time Taken Comments Blood Pressure 157/76 03/06/2014 4:01 PM CDT Pulse 52 03/06/2014 4:01 PM CDT Temperature - - Respiratory Rate - - Oxygen Saturation - - Inhaled Oxygen Concentration - - Weight - - Height 185 cm (6' 0.84) 03/06/2014 4:01 PM CDT Body Mass Index - - documented in this encounter Miscellaneous Notes Miscellaneous - Alvina Langston, L.P.N. - 03/06/2014 4:20 PM CDT General Message From: ALVINA LANGSTON LPN To: CINTIA KILGORE MD; Sent: 03/06/2014 16:20:29 CDT Subject: General Message Patient came in for BP check. 1st BP- 157/86 Pulse-46. 2nd BP 150/76 Pulse-52. Patient states he hasexperienced swelling in both lower legs/feet x1wk. Denies SOB, dizziness, chest pain. Per Dr. Reyes ([place] Provider) patient advised to return if symptoms develope. Patient understood. Please advise anynew orders. Source: [facility] [employer] Document Id: [id number] Miscellaneous - Alvina Langston, L.P.N. - 03/06/2014 4:01 PM CDT Ambulatory Vitals Height Weight Ambulatory Vitals Height Weight Entered On: 03/06/2014 16:01 CDT Performed On: 03/06/2014 16:01 CDT by ALVINA LANGSTON LPN Vitals/Ht/Wt Peripheral Pulse Rate : 46 /min (<LLOW) Systolic Blood Pressure : 157 mmHg (HI) Diastolic Blood Pressure : 86 mmHg NIBP Mean : 110 mmHg BP Location : Left upper extremity Blood Pressure Cuff Size : Large Height : 185 cm(Converted to: 6 ft 1 inch(es), 73 inch(es)) ALVINA LANGSTON LPN - 03/06/2014 16:01 CDT [facility] Document Id: [id number] CDT!9 Miscellaneous - Alvina Langston, L.P.N. - 03/06/2014 4:01 PM CDT Ambulatory Vitals Height Weight Ambulatory Vitals Height Weight Entered On: 03/06/2014 16:04 CDT Performed On: 03/06/2014 16:01 CDT by ALVINA LANGSTON LPN Vitals/Ht/Wt Peripheral Pulse Rate : 52 /min (LOW) Systolic Blood Pressure : 150 mmHg (HI) Diastolic Blood Pressure : 76 mmHg NIBP Mean : 101 mmHg BP Location : Left upper extremity Blood Pressure Cuff Size : Large Height : 185 cm(Converted to: 6 ft 1 inch(es), 73 inch(es)) ALVINA LANGSTON LPN - 03/06/2014 16:01 CDT Source: [employer] Document Id: [id number] CDT!9 documented in this encounter Plan of Treatment Not on filedocumented as of this encounter Visit Diagnoses Not on filedocumented in this encounter Additional Health Concerns Assessment Noted Time PHQ-9 Depression Total Score: 18 02/14/2013 9:53 AM CD T documented as of this encounter
--- OUTSIDE RECORDS SUMMARY | 2022-07-29 10:54 | XMS_ITS | Encounter Summary ---
:1960 Author Organization [facility] Address [address] [place] [address] Care Team Providers Name Role Phone Unavailable Primary Care Provider Unavailable Encounter Details Date Type Department Care Team Description 08/25/2014 Hospital Encounter HX [facility] Cintia Cobb M.D. 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 - 09/04/2014 1:17 PM CAR DUMPER OPERATOR Normal Results Letter 04 September 2014 LAZ LUNA [address] [place] [address] [address] [facility] [id number] Dear LAZ LUNA, I am pleased to report that your results from the following diagnostic test(s) are at goal. Please follow up with us as we discussed during your visit or sooner if you have any concerns. If you have questions or concerns, please do not hesitate to call our office. Result Name Current Result Previous Result Normal Range Cholesterol (mg/dL) 122 08/25/2014 135 07/11/2013 0 - 200 Trig (mg/dL) 117 08/25/2014 145 07/11/2013 9 - 150 HDL (mg/dL) (L) 34 08/25/2014 46.0 07/11/2013 35 - 60 LDL Calculated (mg/dL) (L) 64 08/25/2014 60 07/11/2013 100 - 129 Chol/HDL Ratio 4 08/25/2014 Sincerely, CINTIA KILGORE [address] [address] Electronic Signature Electronically Signed By: CINTIA KILGORE MD On: 04 September 2014 This document has images extracted. Source: [facility] [employer] Document Id: [id number] documented in this encounter Plan of Treatment Not on filedocumented as of this encounter Procedures Procedure Name Priority Date/Time Associated Diagnosis Comme nts LIPID PANEL, S Routine 08/25/2014 10:17 AM Result s for this CAR DUMPER OPERATOR procedure are i n the results section . documented in this encounter Results (ABNORMAL) Lipid Panel (08/25/2014 10:17 AM CAR DUMPER OPERATOR) P athologist Signature Cholesterol, 122 0 - 200 POWERCHART Total MGDL Comment: <200 mg/dL Desirable 200-239 mg/dL Borderline High >239 mg/dL High HX HDL 34 (L) 35 - 60 MGDL POWERCHART Comment: > 60 mg/dL Desirable 40 ? 60 mg/dL Low Risk <40 mg/dL Undesirable Triglycerides 117 9 - 150 MGDL POWERCHART Comment: <150 mg/dL Desirable 150-199 mg/dL Borderline High 200-499 mg/dL High > 499 Very High Calculated LDL 64 (L) 100 - 129 MGDL POWERCHART Total Cholesterol/HDL Ratio 4 PO WERCHART Specimen (Source) Anatomical Collection Method Collection Time Re ceived Time Location / / Volume Laterality Blood 08/25/2014 10:17 AM CAR DUMPER OPERATOR Cintia Copeland M.D. LAB BLOOD ADD-ON Performing Organization Address City/State/ZIP Code Phon e Number POWERCHART documented in this encounter Visit Diagnoses Not on filedocumented in this encounter Additional Health Concerns Assessment Noted Time PHQ-9 Depression Total Score: 18 02/14/2013 9:53 AM CD T documented as of this encounter
--- OUTSIDE RECORDS SUMMARY | 2022-07-29 10:54 | XMS_ITS | Encounter Summary ---
:1960 Author Organization [facility] Address [address] [place] [address] Care Team Providers Name Role Phone Unavailable Primary Care Provider Unavailable Encounter Details Date Type Department Care Team Description 07/27/2014 Hospital Encounter HX [facility] Cintia Aguirre M.D. [address] [place] [phone] (Wo rk) Social History Tobacco Use Types Packs/Day Years Used Date Smoking Tobacco: Never Assessed Sex Assigned at Date Recorded Not on file documented as of this encounter Last Filed Vital Signs Vital Sign Reading Time Taken Comments Blood Pressure 154/78 07/27/2014 12:04 PM ADVANCED DEVELOPER Pulse 49 07/27/2014 12:04 PM ADVANCED DEVELOPER Temperature - - Respiratory Rate - - Oxygen Saturation - - Inhaled Oxygen Concentration - - Weight 164 kg (362 lb 7 oz) 07/27/2014 12:04 PM ADVANCED DEVELOPER Height 185 cm (6' 0.84) 07/27/2014 12:04 PM ADVANCED DEVELOPER Body Mass Index 48.03 07/27/2014 12:04 PM ADVANCED DEVELOPER documented in this encounter Progress Notes Cintia Cobb M.D. - 07/27/2014 11:56 AM CST [id number] CHIEF COMPLAINT/REASON FOR VISIT Leg swelling. HISTORY OF PRESENT ILLNESS Ed is a 54-year-old male who presents today for followup on bilateral leg swelling but also reports that he injured his left shoulder recently. In regard to his legs, he states that they are both swelling even though he has been wearing tighter knee-high socks. If he does wear these stockings then the legs will swell more above the stockings. His legs are burning. He states some mornings when he wakes up, they can be a little bit better but as the day goes on, they get worse. He has not had any shortness of breath. He denies any chest pain. No lightheadedness or dizziness. Additionally he states that he was going to step out of his truck but the ground was further away than he thought and he ended up putting all of his weight on his left arm as it was holding onto the truck door. This happened in June. He was seen in the emergency department where they gave him ice and a sling. He states most of the pain is in the mid biceps region. Hot water makes it feel better. It is worse if he tries to lift it or if he tries to internally rotate it. Additionally, patient is scheduled for bariatric surgery on August 25. He did recently have follow up with Cardiology for atrial flutter. He had a Holter monitor which showed almost continuous atrial flutter. Per Dr. Reyes's note if he was showing frequent atrial flutter, it would be recommended that he be on an anticoagulant due to his risk of stroke. In regard to his diabetes, his blood sugars can be anywhere from 118 to 180, but generally 130 to 160. MEDICATIONS Reconciled. We are going to go up on his Lantus to 75 units. We are also going to increase his Lasix to 40 mg 2 times a day. ALLERGIES Cipro. Influenza. SYSTEMS REVIEW As per HPI. He also reports a mild cough and thinks he may be getting a cold. He has had some chillsbut has not checked his temperature. VITAL SIGNS Temperature 36.5, pulse is 49 beats per minute, blood pressure is 154/78, recheck is 152/71, height is 185 cm, weight is 164.4 kg. BMI is 48.0. PHYSICAL EXAMINATION GENERAL: Patient is alert and oriented, in no acute distress. CARDIOVASCULAR: Bradycardia. S1,S2 regular. No murmurs, rubs, or gallops. LUNGS: Clear to auscultation bilaterally. EXTREMITIES: He has 3+ edema bilaterally. There is some tenderness with palpation. Legs have a ruddyappearance in the skin is thickened and little bit bubbly, although there are no definite blisteringlesions. Patient has tenderness over his anterior left shoulder down into the mid biceps. Active abduction is reduced on the left compared to the right but he can get over 90 degrees. His internal rotation is also decreased just barely getting to his belt line on the left whereas he can get more towards mid back with the right. Internal rotation also causes pain. He has some mildly reduced strength on the left with shoulder abduction compared to the right. Elbow flexion and extension are equal bilate rally. Yeboah Tony test does cause some discomfort as does Neer impingement test although the Neer impingement test is minimal at very end range. DIAGNOSTICS LABORATORY DATA: Hemoglobin is 14.5, white blood cell count is 10,200, platelet count is 183,000. Sodium is 139.9, potassium 4.8, chloride is 101, bicarb is 30.1, BUN is 33, creatinine is 1.31, blood sugar is 138. Alkaline phosphatase is 76, AST 22, ALT 22, total bilirubin 0.5. A1c is 8.6. ULTRASOUND: Ultrasound of bilateral lower extremity shows no sign of a DVT. IMPRESSION/REPORT/PLAN 1. Leg swelling. We did rule out a blood clot with patient's upcoming surgery and this was negative.He has had this difficulty in the past. We are going to increase his Lasix to 40 mg 2 times a day and we will reassess how he is doing with his preoperative examination on August 10. 2. Left shoulder injury. I do have concern about a rotator cuff tear. Patient unfortunately thinks he will be claustrophobic in a regular MRI. He also has the upcoming bariatric surgery scheduled. At this point, we discussed potentially ordering an open MRI in the [facility] and then having him follow through with Physical Therapy, perhaps surgery if it would be recommended. Patient has concerns about how long he will be out of work and asks that they would do both his shoulder and his bariatric surgery at the same time. They stated that that would be highly unlikely. 3. Type 2 diabetes. Patient's A1c has gone up. We are going to increase his Lantus to 75 units to hopefully get a little better control. 4. Atrial flutter. I did speak with Dr. Reyes by email regarding patient's Holter monitor showingatrial flutter and whether we should initiate anticoagulation before or after surgery. He felt that it would be better to initiate it after surgery. We did get patient set up with Dr. Gaitan for cardiac clearance prior to undergoing the surgery. 5. We will see him back on August 10 for his normal preoperative examination. Ready to learn. No apparent learning barriers were identified. Learning preferences include listening. Explained diagnosis and treatment plan. Patient/Child/Caregiver expressed understanding of the content. Cintia Song M.D./caron Electronically Signed By: CINTIA KILGORE MD On: 08/12/2014 08:50 AM Source: [facility] MHSDOLBEYNONRADSYS Document Id: [id number] NCED DEVELOPER documented in this encounter Miscellaneous Notes Miscellaneous - Cintia Cobb M.D. - 07/28/2014 11:50 AM ADVANCED DEVELOPER blood thinner Document Contains Addenda Addendum by ANNE MARIE TUTTLE LPN, RT on 28 July 2014 12:40:42 ADVANCED DEVELOPER notified. DL From: CINTIA KILGORE MD To: ANNE MARIE TUTTLE LPN, RT; Sent: 07/28/2014 11:50:00 ADVANCED DEVELOPER Subject: blood thinner Please let patient know that I have heard from Dr. Reyes re: anticoagulation/blood thinner medicine and he would wait to address that until after surgery. We will have him see Dr. Gaitan as scheduled on 08/14 and myself on 08/10. Cintia Segura Source: [facility] POWERCHART Document Id: [id number] Miscellaneous - Cintia Cobb M.D. - 07/27/2014 2:12 PM ADVANCED DEVELOPER Ambulatory Patient Summary [address] [place], [place] [id number] Visit Information Name: LUNALAZ Padilla [facility] Number: [id number] Current Date: 07/27/2014 14:12:29 Physicians Attending Provider: CINTIA KILGORE MD Primary [...] 1 Tablet(s), Oral, two times a day leg swelling This is a CHANGE Routed to [facility] [address] hydrochlorothiazide (hydrochlorothiazide 25 mg oral tablet) 1 Tablet(s), Oral, once a day high bloodpressure This is a CH[facility] [address] hydrocortisone topical (hydrocortisone 2.5% topical lotion) 1 jannie, Topical, three times a day ibuprofen (Advil) 200 mg, Oral, 2 tabs daily insulin glargine (Lantus Solostar Pen 100 units/mL subcutaneous solution) 75 units, Subcutaneous, once a day diabetes This is a CHANGE [facility] [address] liraglutide (Victoza) 1.8 mg, Subcutaneous, once a day lisinopril (lisinopril 40 mg oral tablet) 1 Tablet(s), Oral, two times a day high blood pressure This is a CHANGE Routed to [address] [address] metFORMIN (metformin 1000 mg oral tablet) 1 Tablet(s), Oral, two times a day with meals diabetes This is a CHANGE Routed to [address] [address] metoprolol (metoprolol tartrate 25 mg oral tablet) 1 Tablet(s), Oral, two times a day omeprazole (omeprazole 20 mg oral delayed release capsule) 1 cap, Oral, once a day simvastatin (simvastatin 40 mg oral tablet) 1 Tablet(s), Oral, once a day (at bedtime) high cholesterol This is a CHANGE Routed to [address] [address] tadalafil (Cialis 20 mg oral tablet) 1 Tablet(s), Oral, once a day as needed for erectile dysfunction Take as needed prior to anticipated sexual activity Stop Taking the Following Medications: furosemide (Lasix 20 mg oral tablet) Medication list as of 07-27-14 14:12 Attention: If you have any medications at [...] Electronically Signed By: CINTIA KILGORE MD Signed On:27-JUL-2014 14:12:20 Your Allergies & Intolerances Substance Reaction Symptoms [...] Your Upcoming Appointments Date Time Location Provider 08/10/2014 18:00 [facility] Family Med Cintia Song MD 08/14/2014 11:30 [facility] Cardiology Chasity Gaitan MD Attention: Contact your local Clinic if further appointment detail needed. Your Goals/Additional instructions: Source: [facility] POWERCHART Document Id: [id number] NCED DEVELOPER Miscellaneous - Cintia Cobb M.D. - 07/27/2014 2:12 PM ADVANCED DEVELOPER Ambulatory Discharge Medication List [address] [id number] Visit Information Name: LAZ LUNA [facility] Number: [id number] Visit Date: 07/27/2014 14:12:27 Attending Provider: CINTIA KILGORE MD Primary Care [...] 1 Tablet(s), Oral, two times a day leg swelling This is a CHANGE Routed to [address] [address] hydrochlorothiazide (hydrochlorothiazide 25 mg oral tablet) 1 Tablet(s), Oral, once a day high bloodpressure This is a CHANGE Routed to [address] [address] hydrocortisone topical (hydrocortisone 2.5% topical lotion) 1 jannie, Topical, three times a day ibuprofen (Advil) 200 mg, Oral, 2 tabs daily insulin glargine (Lantus Solostar Pen 100 units/mL subcutaneous solution) 75 units, Subcutaneous, once a day diabetes This is a CHANGE Routed to [address] [address] liraglutide (Victoza) 1.8 mg, Subcutaneous, once a day lisinopril (lisinopril 40 mg oral tablet) 1 Tablet(s), Oral, two times a day high blood pressure This is a CHANGE Routed to [address] [address] metFORMIN (metformin 1000 mg oral tablet) 1 Tablet(s), Oral, two times a day with meals diabetes This is a CHANGE Routed to [address] [address] metoprolol (metoprolol tartrate 25 mg oral tablet) 1 Tablet(s), Oral, two times a day omeprazole (omeprazole 20 mg oral delayed release capsule) 1 cap, Oral, once a day simvastatin (simvastatin 40 mg oral tablet) 1 Tablet(s), Oral, once a day (at bedtime) high cholesterol This is a CHANGE Routed to [address] [address] tadalafil (Cialis 20 mg oral tablet) 1 Tablet(s), Oral, once a day as needed for erectile dysfunction Take as needed prior to anticipated sexual activity Stop Taking the Following Medications: furosemide (Lasix 20 mg oral tablet) Medication list as of 07-27-14 14:12 Attention: If you have any medications at [...] Electronically Signed By: CINTIA KILGORE MD Signed On:27-JUL-2014 14:12:20 Additional Information: Source: [facility] POWERCHART Document Id: [id number] NCED DEVELOPER Miscellaneous - Anne Marie Tuttle L.PPiliN. - 07/27/2014 12:11 PM CST Health Assessment Health Assessment Entered On: 07/27/2014 12:12 ADVANCED DEVELOPER Performed On: 07/27/2014 12:11 ADVANCED DEVELOPER by ANNE MARIE TUTTLE LPN, RT Health Assessment Complete Health Assessment Complete or Modified : Annual Health Assessment Annual Health Assessment Completed : Yes ANNE MARIE TUTTLE LPN, RT - 07/27/2014 12:11 ADVANCED DEVELOPER Nutrition Nutrition Risk Factors by History Adult : None ANNE MARIE TUTTLE LPN, RT - 07/27/2014 12:11 ADVANCED DEVELOPER Functional Current Daily Living Assistance : None ANNE MARIE TUTTLE LPN, RT - 07/27/2014 12:11 ADVANCED DEVELOPER Dependent Habits Tobacco Use/Currently Using : No Smoking Status : Never smoker ANNE MARIE TUTTLE LPN, RT - 07/27/2014 12:11 ADVANCED DEVELOPER Tobacco Use Grid Last Use : never ANNE MARIE TUTTLE LPN, RT - 07/27/2014 12:11 ADVANCED DEVELOPER Caffeine Use Grid Caffeine Use : Current Type : Coffee, Soft drinks Frequency : Weekly Amount : soda- weekly; coffee- 1x/week ANNE MARIE TUTTLE LPN, RT - 07/27/2014 12:11 ADVANCED DEVELOPER Recreational Drug Use Grid Drug Use : None ANNE MARIE TUTTLE LPN, RT - 07/27/2014 12:11 ADVANCED DEVELOPER Psychosocial Domestic Abuse Concerns : None Roman Catholic Preference : Unknown ANNE MARIE TUTTLE LPN, RT - 07/27/2014 12:11 ADVANCED DEVELOPER Advance Directive Advanced Directives : No Advance Directive Additional Information : No ANNE MARIE TUTTLE LPN, RT - 07/27/2014 12:11 ADVANCED DEVELOPER Educ Needs Learning Style Preference Adult Grid Patient : Demonstration, Printed materials, Verbal explanation, Video/Educational TV Family : None ANNE MARIE TUTTLE LPN, RT - 07/27/2014 12:11 ADVANCED DEVELOPER Source: [facility] POWERCHART Document Id: [id number] ADVANCED DEVELOPER!33 NCED DEVELOPER Miscellaneous - Anne Marie Tuttle L.P.N. - 07/27/2014 12:04 PM CST Adult Windsurfing Instructor Intake/History Adult Windsurfing Instructor Intake/History Entered On: 07/27/2014 12:09 ADVANCED DEVELOPER Performed On: 07/27/2014 12:04 ADVANCED DEVELOPER by ANNE MARIE TUTTLE LPN, RT Intake Chief Complaint : Concerned about bilateral lower leg pain, burning, and swelling x 1 month. Also, left shoulder pain, injuried in 2013. Temperature Core : 36.5 DegC(Converted to: 97.7 DegF) Peripheral Pulse Rate : 49 /min (<LLOW) Systolic Blood Pressure : 154 mmHg (HI) Diastolic Blood Pressure : 78 mmHg NIBP Mean : 103 mmHg BP Location : Left upper extremity Blood Pressure Cuff Size : Large Height : 185 cm(Converted to: 6 ft 1 inch(es), 73 inch(es)) Actual Weight : 164.4 kg(Converted to: 362 lb 7 oz) Weight Source : Standing scale Dosing Weight Clinic : 164.4 kg Clinic BSA : 2.91 Body Mass Index : 48.04 kg/m2 ANNE MARIE TUTTLE LPN, RT - 07/27/2014 12:04 ADVANCED DEVELOPER General Info Information Given By : Patient Preferred Communication Mode : Verbal Languages : [place] Is Patient Female and 13-50 no hysterectomy : No ANNE MARIE TUTTLE LPN, RT - 07/27/2014 12:04 ADVANCED DEVELOPER Subjective Pain Symptoms : Yes ANNE MARIE TUTTLE LPN, RT - 07/27/2014 12:04 ADVANCED DEVELOPER Pain Pain Assessment Grid Pain 1 Pain 2 Location : Shoulder Lower leg Laterality : Left Bilateral ANNE MARIE TUTTLE LPN, RT - 07/27/2014 12:04 ADVANCED DEVELOPER ANNE MARIE TUTTLE LPN, RT - 07/27/2014 12:04 ADVANCED DEVELOPER Dependent Habits Tobacco Use/Currently Using : No Smoking Status : Never smoker ANNE MARIE TUTTLE LPN, RT - 07/27/2014 12:04 ADVANCED DEVELOPER Tobacco Use Grid Last Use : never ANNE MARIE TUTTLE LPN, RT - 07/27/2014 12:04 ADVANCED DEVELOPER Caffeine Use Grid Caffeine Use : Current Type : Coffee, Soft drinks Frequency : Weekly Amount : soda- weekly; coffee- 1x/week ANNE MARIE TUTTLE LPN, RT - 07/27/2014 12:04 ADVANCED DEVELOPER Recreational Drug Use Grid Drug Use : None ANNE MARIE TUTTLE LPN, RT - 07/27/2014 12:04 ADVANCED DEVELOPER ID Screen Drug Resistant Organism : No Travel Within Last 21 Days : No ANNE MARIE TUTTLE LPN, RT - 07/27/2014 12:04 ADVANCED DEVELOPER Source: [facility] POWERCHART Document Id: [id number] ADVANCED DEVELOPER!49 NCED DEVELOPER documented in this encounter Plan of Treatment Not on filedocumented as of this encounter Procedures Procedure Name Priority Date/Time Associated Comments Diagnosis CBC WITHOUT Routine 07/27/2014 12:49 Results for this DIFFERENTIAL, B PM ADVANCED DEVELOPER procedure ar e in the results section. HEMOGLOBIN A1C, B Routine 07/27/2014 12:49 Result s for this PM ADVANCED DEVELOPER procedure are i n the results section. COMPREHENSIVE Routine 07/27/2014 12:49 Results fo r this METABOLIC PANEL, S/P PM ADVANCED DEVELOPER procedu re are in the results section. documented in this encounter Results CBC without Differential (07/27/2014 12:49 PM ADVANCED DEVELOPER) P athologist Signature Leukocytes 10.2 3.5 - 10.5 POWERCHART X109L Erythrocytes 5.05 4.32 - 5.72 POWERCHART [id number] Hemoglobin 14.5 13.5 - 17.5 POWERCHART GDL Hematocrit 44.9 38.8 - 50.0 POWERCHART MCV 88.9 81.0 - 95.0 POWERCHART FL HX RDW 14.4 11.8 - 15.6 POWERCHART Platelet Count 183 150 - 450 POWERCHART X109L Specimen (Source) Anatomical Collection Method Collection Time Re ceived Time Location / / Volume Laterality Blood 07/27/2014 12:49 PM ADVANCED DEVELOPER Cintia Copeland M.D. LAB BLOOD ADD-ON Performing Organization Address City/State/ZIP Code Phon e Number POWERCHART (ABNORMAL) Hemoglobin A1c (07/27/2014 12:49 PM ADVANCED DEVELOPER) P athologist Signature Hemoglobin A1c, 8.6 (H) <=5.6 A1C POWERCHART B Specimen (Source) Anatomical Collection Method Collection Time Re ceived Time Location / / Volume Laterality Blood 07/27/2014 12:49 PM ADVANCED DEVELOPER Cintia Copeland M.D. LAB BLOOD ADD-ON Performing Organization Address City/State/ZIP Code Phon e Number POWERCHART (ABNORMAL) CMP (Comprehensive Metabolic Panel) (07/27/2014 12:49 PM ADVANCED DEVELOPER) Patholo gist Method Time Signature Anion Gap 14 10 - 20 POWERCHART MMOLL Alkaline 76 45 - 115 POWERCHART Phosphatase, S UL Alanine 22 15 - 37 POWERCHART Amniotransferase, LD UL Aspartate 22 12 - 31 POWERCHART Aminotransferase UL (AST), S Bilirubin, Total, S 0.5 0.1 - 1.0 POWERCHART MGDL BUN (Blood Urea 33 (H) 7 - 18 POWERCHART Nitrogen), S MGDL Chloride, S 101 98 - 107 POWERCHART MMOLL CO2 Total 30.1 (H) 23.0 - POWERCHART 29.0 MMOLL Creatinine 1.31 (H) 0.60 - POWERCHART 1.30 MGDL Total Protein, S 7.1 6.3 - 7.9 POWERCHART GDL Glucose 138 70 - 139 POWERCHART MGDL Calcium, Total, S 9.3 8.6 - POWERCHART 10.0 MGDL Sodium, S 139.9 135.0 - POWERCHART 145.0 MMOLL Potassium, S 4.8 3.6 - 4.8 POWERCHART MMOLL Albumin, S 3.6 3.5 - 5.0 POWERCHART GDL HXeGFR (MDRD) 57 (L) >=60 POWERCHART [id number] 2 eGFR Black/ >60 >=60 POWERCHART Indian [id number] 2 Specimen (Source) Anatomical Collection Method Collection Time Re ceived Time Location / / Volume Laterality Blood 07/27/2014 12:49 PM ADVANCED DEVELOPER Cintia Copeland M.D. LAB BLOOD ADD-ON Performing Organization Address City/State/ZIP Code Phon e Number POWERCHART documented in this encounter Visit Diagnoses Not on filedocumented in this encounter Additional Health Concerns Assessment Noted Time PHQ-9 Depression Total Score: 18 02/14/2013 9:53 AM CD T documented as of this encounter
--- OUTSIDE RECORDS SUMMARY | 2022-07-29 10:54 | XMS_ITS | Encounter Summary ---
:1960 Author Organization [facility] Address [address] [place] [address] Care Team Providers Name Role Phone Unavailable Primary Care Provider Unavailable Encounter Details Date Type Department Care Team Description 09/21/2014 Hospital Encounter HX [facility] Cintia Aguirre M.D. [address] [place] [phone] (Wo rk) Social History Tobacco Use Types Packs/Day Years Used Date Smoking Tobacco: Never Assessed Sex Assigned at Date Recorded Not on file documented as of this encounter Last Filed Vital Signs Vital Sign Reading Time Taken Comments Blood Pressure 149/70 09/21/2014 7:07 PM [employer] Pulse 64 09/21/2014 6:09 PM [employer] Temperature - - Respiratory Rate - - Oxygen Saturation - - Inhaled Oxygen Concentration - - Weight 157 kg (345 lb 0.3 oz) 09/21/2014 6:09 PM [employer] Height 185 cm (6' 0.84) 09/21/2014 7:07 PM [employer] Body Mass Index 45.73 09/21/2014 6:09 PM [employer] documented in this encounter Progress Notes Cintia Cobb M.D. - 09/21/2014 6:03 PM CST [id number] CHIEF COMPLAINT/REASON FOR VISIT Follow up chronic problems. HISTORY OF PRESENT ILLNESS Ed is a 54-year-old male who presents today to follow up on chronic problems. He also has questions about the Lap-Band. He is set up for appointments with Bariatric Surgery in [place] againthe beginning of October but he reports they do not do the Lap-Band and he is starting to become int erested in that. He reports in regards to his blood sugar in the morning it tends to be about 69 to 160 and in the evening 100 to 150. He has had a few readings up in the 200s as well. He is taking 80 units of Lantus at bedtime and has had no problems feeling low. He continues to use his compression stockings and they have been helpful with his swelling. That has continued to stay better than it was before. He is taking Lasix 20 mg in the morning and 60 mg in the evening. He is having no difficulties with his breathing and no problems with chest pain. He will still occasionally have some chills. His bigger concern is that his left shoulder pain is getting worse. He had an injury getting out of a truck a few months ago. He has problems reaching his arm behind him and putting it up over his head. MEDICATIONS Reviewed. Lantus was updated to 80 units, otherwise no changes. ALLERGIES Cipro. Influenza vaccine. SYSTEMS REVIEW As per HPI. VITAL SIGNS Temperature is 36.3, pulse is 64 beats per minute, blood pressure 156/74, recheck 152/70, and recheck 149/70. Height is 185 cm, weight is 156.5 kg, BMI is 45.7. PHYSICAL EXAMINATION GENERAL: Patient is alert and oriented, in no acute distress. CARDIOVASCULAR: Regular rate and rhythm. Normal S1, S2. No murmurs, rubs, or gallops. LUNGS: Clear to auscultation bilaterally. EXTREMITIES: Boots continue to be loose. He has his compressive stockings on today. He does have some edema. On examination of his left shoulder, patient does have some tenderness over his left anterior shoulder. On range of motion he can get his arm up over his head with abduction but if he moves it more deliberately on the other side. He can also get his hands to about his belt with internal rotation but again, it is painful. The patient has a positive Y[place]oah- Tony test. Neer impingement is only causing minimal pain. On empty can test he has good strength but some pain. With shoulder abductionbilaterally he also has symmetric strength. IMPRESSION/REPORT/PLAN 1. Type 2 diabetes. The patient is due to have his A1c updated in about 1 week. We will also get ldzssbzvyo-zc-etqvadrhyf ratio. The blood sugars he gives are still a little bit higher than we would like but generally they have been improved from previous. 2. Acute renal insufficiency. Patient's last creatinine was up a little bit at 1.3. We will recheck that with repeat blood work. This is potentially related to the increased Lasix dose. 3. Left shoulder pain. I recommended that we get patient into physical therapy. We also discussed that we could potentially do an MRI but patient has to have an open MRI [facility] in [facility]. He will thinkabout what he would like to do next. 4. Pedal edema. Ankles continue to be much improved since we went up on his Lasix dose. He should continue with the current dose of Lasix as well as his compression stockings. 5. Morbid obesity. I told patient that I am not really the best person to speak with regarding the Lap-Band as I do not know enough about recovery times to answer his questions. We will try to find someone the patient can speak with regarding this so he can determine if he would rather do a Lap-Band versus the full bariatric surgery which was previously planned in [place]. He is going to keep his appointment in [place] at this time. 6. Hypertension. Patient's blood pressure is up a little bit again today. At this point I am not going to change any of his medications. Ready to learn. No apparent learning barriers were identified. Learning preferences include listening. Explained diagnosis and treatment plan. Patient/Child/Caregiver expressed understanding of the content. Cintia Song M.D./caron Electronically Signed By: CINTIA KILGORE MD On: 10/02/2014 02:41 PM Source: [facility] [id number] Document Id: [id number] [facility] [employer] documented in this encounter Miscellaneous Notes Miscellaneous - Anne Marie Tuttle L.P.N. - 09/21/2014 7:07 PM CST Ambulatory Vitals Height Weight Ambulatory Vitals Height Weight Entered On: 09/21/2014 19:08 [employer] Performed On: 09/21/2014 19:07 [employer] by ANNE MARIE TUTTLE LPN, RT Vitals/Ht/Wt Systolic Blood Pressure : 149 mmHg (HI) Diastolic Blood Pressure : 70 mmHg NIBP Mean : 96 mmHg BP Location : Left upper extremity Blood Pressure Cuff Size : Large Height : 185 cm(Converted to: 6 ft 1 inch(es), 73 inch(es)) ANNE MARIE TUTTLE LPN, RT - 09/21/2014 19:07 [employer] Source: [employer] POWERCHART Document Id: [id number] [employer]!8 [employer] Miscellaneous - Cintia Cobb M.D. - 09/21/2014 6:52 PM [employer] Ambulatory Patient Summary [address] [id number] Visit Information Name: LAZ LUNA [facility] Number: [id number] Current Date: 09/21/2014 18:52:50 Physicians Attending Provider: CINTIA KILGORE MD Primary [...] 80 units, Subcutaneous, once a day diabetes This is a CHANGE liraglutide (Victoza) 1.8 mg, Subcutaneous, once a [...] the Following Medications: Medication list as of 09-21-14 18:52 Attention: If you have any medications at [...] Electronically Signed By: CINTIA KILGORE MD Signed On:21-SEP-2014 18:51:42 Your Allergies & Intolerances Substance Reaction Symptoms [...] detail needed. Your Goals/Additional instructions: Future Appointment: _ Lab: A1c, microalbumin, BMP- 1 week Radiology: _ Need Prior Auth: _ NO Prior Auth: _ Consult: _ Release of MR_ PHI_ Source: [facility] POWERCHART Document Id: [id number] [employer] Miscellaneous - Cintia Cobb M.D. - 09/21/2014 6:52 PM [employer] Ambulatory Discharge Medication List [address] [id number] Visit Information Name: LAZ LUNA [facility] Number: [id number] Visit Date: 09/21/2014 18:52:48 Attending Provider: CINTIA KILGORE MD Primary Care [...] 80 units, Subcutaneous, once a day diabetes This is a CHANGE liraglutide (Victoza) 1.8 mg, Subcutaneous, once a [...] the Following Medications: Medication list as of 09-21-14 18:52 Attention: If you have any medications at [...] Electronically Signed By: CINTIA KILGORE MD Signed On:21-SEP-2014 18:51:42 Additional Information: Source: [facility] POWERCHART Document Id: [id number] [employer] Miscellaneous - Anne Marie Tuttle L.PPiliN. - 09/21/2014 6:21 PM CST Quality Measures Quality Measures Entered On: 09/21/2014 18:23 [employer] Performed On: 09/21/2014 18:21 [employer] by ANNE MARIE TUTTLE LPN, Diabetes Date of Last Eye Exam : 09/12/2014 [employer] ANNE MARIE TUTTLE LPN, RT - 09/21/2014 18:21 [employer] Source: [facility] POWERCHART Document Id: [id number] [employer]!3 [employer] Miscellaneous - Anne Marie Tuttle L.PPiliN. - 09/21/2014 6:09 PM CST Adult Board Certified Arts Therapist Intake/History Adult Board Certified Arts Therapist Intake/History Entered On: 09/21/2014 18:16 [employer] Performed On: 09/21/2014 18:09 [employer] by ANNE MARIE TUTTLE LPN, RT Intake Chief Complaint : f/u questions about lap band Temperature Core : 36.3 DegC(Converted to: 97.3 DegF) (LOW) Peripheral Pulse Rate : 64 /min Systolic Blood Pressure : 156 mmHg (HI) Diastolic Blood Pressure : 74 mmHg NIBP Mean : 101 mmHg BP Location : Left upper extremity Blood Pressure Cuff Size : Large Height : 185 cm(Converted to: 6 ft 1 inch(es), 73 inch(es)) Actual Weight : 156.5 kg(Converted to: 345 lb 0 oz) Weight Source : Standing scale Dosing Weight Clinic : 156.5 kg Clinic BSA : 2.84 Body Mass Index : 45.73 kg/m2 ANNE MARIE TUTTLE LPN, RT - 09/21/2014 18:09 [employer] General Info Information Given By : Patient Preferred Communication Mode : Verbal Languages : Romanian Is Patient Female and 13-50 no hysterectomy : No ANNE MARIE TUTTLE LPN, RT - 09/21/2014 18:09 [employer] Subjective Pain Symptoms : No ANNE MARIE TUTTLE LPN, RT - 09/21/2014 18:09 [employer] Dependent Habits Tobacco Use/Currently Using : No Smoking Status : Never smoker ANNE MARIE TUTTLE LPN, RT - 09/21/2014 18:09 [employer] Tobacco Use Grid Last Use : never ANNE MARIE TUTTLE LPN, RT - 09/21/2014 18:09 [employer] Caffeine Use Grid Caffeine Use : Current Type : Coffee, Soft drinks Frequency : Weekly Amount : soda- weekly; coffee- 1x/week ANNE MARIE TUTTLE LPN, RT - 09/21/2014 18:09 [employer] Recreational Drug Use Grid Drug Use : None ANNE MARIE TUTTLE LPN, RT - 09/21/2014 18:09 [employer] ID Screen Drug Resistant Organism : No Travel Within Last 21 Days : No ANNE MARIE TUTTLE LPN, RT - 09/21/2014 18:09 [employer] Source: [employer] Document Id: [id number] [employer]!41 [employer] documented in this encounter Plan of Treatment Not on filedocumented as of this encounter Visit Diagnoses Not on filedocumented in this encounter Additional Health Concerns Assessment Noted Time PHQ-9 Depression Total Score: 18 02/14/2013 9:53 AM CD T documented as of this encounter
--- OUTSIDE RECORDS SUMMARY | 2022-07-29 10:54 | XMS_ITS | Encounter Summary ---
:1960 Author Organization [facility] Address [address] [place] [address] Care Team Providers Name Role Phone Unavailable Primary Care Provider Unavailable Encounter Details Date Type Department Care Team Description 07/13/2014 Hospital Encounter [facility]X [facility] ED Pratik Aguila M.D. [address] [place] [phone] (Wo rk) Social History Tobacco Use Types Packs/Day Years Used Date Smoking Tobacco: Never Assessed Sex Assigned at Date Recorded Not on file documented as of this encounter Last Filed Vital Signs Vital Sign Reading Time Taken Comments Blood Pressure 137/79 07/13/2014 12:07 PM [employer] DISP[employer] Pulse 45 07/13/2014 12:07 PM [employer] DISPATCHER Temperature - - Respiratory Rate 18 07/13/2014 12:07 PM [employer] DISPATCHER Oxygen Saturation - - Inhaled Oxygen Concentration - - Weight - - Height 185 cm (6' 0.84) 07/13/2014 12:07 PM [employer] DISPATCHER Body Mass Index - - documented in this encounter Discharge Summaries Geneva Woodson R.N. - 07/13/2014 12:58 PM CST ED Discharge Instructions [address] [id number] Name: JEREMYNOEMÍ Date of : 1960 12:00 AM Visit Date: 07/13/2014 11:26 AM [facility] Number: [id number] Address: [address] [place] [phone] Primary Care Provider: KEVIN KILGORE MD IMPORTANT: [facility] in [place] would like to thank you for allowing us to assist you with your healthcare needs. The following includes patient education materials and informationregarding your injury/illness. Diagnosis: Sprain Shoulder Active L; Tendonitis Elbow Follow-Up Instructions: With: Address: When: KEVIN KILGORE [address] [place] [phone] Business (1) Within As Needed Comments: If symptoms worsen Your Upcoming Appointments: Date Time Location Provider 08/09/2014 18:00 [facility] Kevin Song MD Patient Education Materials: [id number] TENDONITIS A tendon is the thick fibrous cord that joins muscle to bone and causes joints to move. Tendonitis is inflammation of the tendon which may be due to overuse, injury or infection. This usually involves the shoulders, forearm, wrist, hands and foot. Symptoms include local pain, swelling and tenderness to the touch. Movement of the involved joint increases the pain. Tendonitis requires about 4 to 6 weeks to heal. It is treated by preventing motion of the tendon with a splint or brace and use of anti-inflammatory medicine. HOME CARE: ?? Apply an ice pack (ice cubes in a plastic bag, wrapped in a towel) over the injured area for 20 minutes every 1-2 hours the first day for pain relief. Continue this 3-4 times a day until the pain and swelling goes away. ?? Rest the inflamed joint and protect it from movement. ?? You may use ibuprofen (Motrin, Advil) or naproxen (Aleve, Naprosyn) to treat pain and inflammation, unless another medicine was prescribed. If you can't take these medicines, acetaminophen (Tylenol)may help with the pain, but does not treat inflammation. [NOTE : If you have chronic liver or kidneydisease or ever had a stomach ulcer or GI bleeding, talk with your doctor before using these medicines.] ?? As your symptoms improve, begin gradual motion at the involved joint. FOLLOW UP with your doctor if not improving after the first five days of treatment. GET PROMPT MEDICAL ATTENTION if any of the following occur: ?? Redness over the painful area ?? Increasing pain or swelling at the joint Fever of 100.4??F (38??C) or higher, or as directed by your healthcare provider ?? [facility], [address] [place] [address]. All rights reserved. This information is not intended as a substitute for professional medical care. Always follow your healthcare professional's instructions. [id number] SHOULDER SPRAIN A sprain is a stretching or tearing of the ligaments that hold a joint together. A sprain may take up to six weeks to fully heal, depending on how severe it is. Moderate to severe shoulder sprains are treated with a sling or shoulder immobilizer. Minor sprains can be treated without any special support. HOME CARE: ?? If a sling was provided, leave it in place for the time advised by your doctor. If you are unsurehow long to wear it, ask for advice. If the sling becomes loose, adjust it so that your forearm is level with the ground and the shoulder feels well supported. ?? Apply an ice pack (ice cubes in a plastic bag, wrapped in a thin towel) over the injured area for20 minutes every 1 to 2 hours the first day. Continue with ice packs 3 to 4 times a day for the nexttwo days, then as needed for the relief of pain and swelling. ?? You may use acetaminophen (Tylenol) or ibuprofen (Motrin, Advil) to control pain, unless another pain medicine was prescribed. (NOTE : If you have chronic liver or kidney disease or ever had a stomach ulcer or GI bleeding, talk with your doctor before using these medicines.) ?? Shoulder joints become stiff if left in a sling for too long. Range of motion exercises should usually be started within the first ten days after injury. Consult your doctor on what type of exercises to do and how soon to start. FOLLOW UP with your doctor as directed if the pain does not start to improve within the next five days. GET PROMPT MEDICAL ATTENTION if any of the following occur: ?? Increasing shoulder pain or arm swelling ?? Fingers become cold, blue, numb or tingly Large amount of bruising of the shoulder or upper arm ?? [facility], [address] [place] [address]. All rights reserved. This information is not intended as a substitute for professional medical care. Always follow your healthcare professional's instructions. [id number] MUSCLE STRAIN,EXTREMITY A MUSCLE STRAIN is a stretching and tearing of muscle fibers. This causes pain, especially with motion of that muscle. There may also be some swelling and bruising. HOME CARE: 1) Keep the injured area raised to reduce pain and swelling. This is especially important during thefirst 48 hours. 2) Make an ice pack (ice cubes in a plastic bag, wrapped in a towel) and apply for 20 minutes every 1-2 hours the first day. You should continue with ice packs 3-4 times a day for the second and third days. Unless otherwise instructed, on the fourth day you may begin hot soaks or hot packs (small towel soaked in hot water) 3-4 times a day while you gently exercise the involved area. 3) You may use acetaminophen (Tylenol) or ibuprofen (Motrin, Advil) to control pain, unless another medicine was prescribed. [ NOTE : If you have chronic liver or kidney disease or ever had a stomach ulcer or GI bleeding, talk with your doctor before using these medicines.] 4) For LEG STRAINS: If CRUTCHES have been recommended, do not bear full weight on the injured leg until you can do so without pain. You may return to sports when you are able to hop and run on the injured leg without pain. FOLLOW UP with your doctor or this facility if you are not improving within the next five days. GET PROMPT MEDICAL ATTENTION if any of the following occur: -- Fingers or toes become swollen, cold, blue, numb or tingly -- Pain or swelling increases ?? [id number] [facility], [address] [place] [address]. All rights reserved. This information is not intended as a substitute for professional medical care. Always follow your healthcare professional's instructions. ED Tests and Procedures: Order Status Discharge Prescriptions & Home Medications: Medication/Strength Dose Route Frequency Indications/Special Instructions/Comments/Notes simvastatin (simvastatin 40 mg oral tablet) 40 mg Oral once a day (at bedtime) Needs lab work for further refills lisinopril (lisinopril 40 mg oral tablet) 40 mg Oral two times a day needs lab work for further refills hydrochlorothiazide (hydrochlorothiazide 25 mg oral tablet) 25 mg Oral once a day Needs lab work forfurther refills metFORMIN (metformin 1000 mg oral tablet) 1,000 mg Oral two times a day with meals Please advise visit needed for further refills. furosemide (Lasix 20 mg oral tablet) See Instructions 1 tab(s) PO in morning and 2 tab in evening amLODIPine (amLODIPine 10 mg oral tablet) 10 mg Oral once a day hypertension metoprolol (metoprolol tartrate 25 mg oral tablet) 25 mg Oral two times a day omeprazole (omeprazole 20 mg oral delayed release capsule) 20 mg Oral once a day allopurinol (allopurinol 300 mg oral tablet) 300 mg Oral once a day *ibuprofen (Advil) 200 mg Oral 2 tabs daily hydrocortisone topical (hydrocortisone 2.5% topical lotion) 1 jannie Topical three times a day liraglutide (Victoza) 1.8 mg Subcutaneous once a day insulin glargine (Lantus Solostar Pen 100 units/mL subcutaneous solution) 70 units Subcutaneous oncea day docusate-senna (Dok Plus) 2 tab(s) Oral once a day tadalafil (Cialis 20 mg oral tablet) 1 tab(s) Oral once a day as needed for erectile [...] at all times in case of emergency. Medication Reconciliation: Reconciliation is a process of identifying the most accurate list of all medications a patient is taking - including name, dosage, frequency, and route - and using this list to provide to the patient information about how to take those medications. NOEMÍ LUNA or designee has reviewed the home medications you have listed with us. Review the following instructions: You have NOT received any prescriptions and you have told us you are not currently taking any home medications You have NOT received any prescriptions. You have been provided a discharge medications list and you may CONTINUE taking your medications as previously prescribed by your regular providers. You have received the listed prescriptions and BEGIN all listed prescriptions as directed. Since you have listed no home medications, please check with your family doctor if you are taking any other medications. You have received the listed prescriptions and BEGIN all listed prescriptions as directed. Youhave been provided a discharge medications list and you may CONTINUE all home medications as previously prescribed by your regular providers. You have received the listed prescriptions and BEGIN all listed prescriptions as directed. Youhave been provided a discharge medications list. The following CHANGES have been made to your medication list; Otherwise, CONTINUE all home medications as previously prescribed by your regular provider. IMPORTANT: We examined and treated you today [...] ride home with a responsible constitution party. I, LUNA, ED , or responsible constitution party have received this information and my questions have been answered. I have discussed any challenges I see with this plan with the nurse or physician. Patient Signature or Responsible Constitution Party/Relationship Date Time Provider Signature Date Time Medication Reconciliation: Reconciliation is a process of identifying the most accurate list of all medications a patient is taking - including name, dosage, frequency, and route - and using this list to provide to the patient information about how to take those medications. JEREMY, NOEMÍ or designee has reviewed the home medications you have listed with us. Review the following instructions: You have NOT received any prescriptions and you have told us you are not currently taking any home medications You have NOT received any prescriptions. You have been provided a discharge medications list and you may CONTINUE taking your medications as previously prescribed by your regular providers. You have received the listed prescriptions and BEGIN all listed prescriptions as directed. Since you have listed no home medications, please check with your family doctor if you are taking any other medications. You have received the listed prescriptions and BEGIN all listed prescriptions as directed. Youhave been provided a discharge medications list and you may CONTINUE all home medications as previously prescribed by your regular providers. You have received the listed prescriptions and BEGIN all listed prescriptions as directed. Youhave been provided a discharge medications list. The following CHANGES have been made to your medication list; Otherwise, CONTINUE all home medications as previously prescribed by your regular provider. IMPORTANT: We examined and treated you today [...] ride home with a responsible constitution party. I, JEREMY, NOEMÍ , or responsible constitution party have received this information and my questions have been answered. I have discussed any challenges I see with this plan with the nurse or physician. Patient Signature or Responsible Constitution Party/Relationship Date Time Provider Signature Date Time Source: [employer] POWERCHART Document Id: [id number] [employer]S DISPATCHER Geneva Woodson R.N. - 07/13/2014 12:58 PM CST ED Depart Summary [facility] Emergency Department Clinical Discharge Summary PERSON INFORMATION Name NOEMÍ LUNA Age 54 Years 1960 12:00 AM Sex Male Language South African PCP KEVIN KILGORE MD Marital Status N [id number] Visit Id Visit Reason Arm pain-swelling; Arm pain-swelling; Left Arm Hurts Specialty Enc Type Emergency Med Service Emergency Medicine Referred by Track Group [facility] ED Discharge 07/13/2014 12:58 PM Tracking Id [id number] Checkout 07/13/2014 12:58 PM Checkin 07/13/2014 11:26 AM Acuity 4 -Less Urgent Dispo Type * Discharged to Home or Self Care Arrival 07/13/2014 11:26 AM Reg Status Complete LOS 000 01:32 Address: [address] [place] [phone] Comment: PROVIDER INFORMATION Provider Role Provider Contact Time SABRA AGUILA MD ED Provider 07/13/14 11:33 MANAN RAMÍREZ AMPOULE WASHING MACHINE OPERATOR Nurse 07/13/14 12:09 DIAGNOSIS Sprain Shoulder Active L; Tendonitis Elbow Comment: PATIENT EDUCATION INFORMATION Instructions: TENDONITIS; SPRAIN SHOULDER; MUSCLE STRAIN, Extremity Follow up: With: Address: When: KEVIN KILGORE [address] [place] [phone] Business (1) Within As Needed Comments: If symptoms worsen Source: [facility] POWERCHART Document Id: [id number] ST [employer]HTERS DISPATCHER documented in this encounter ED Notes Geneva Woodson R.N. - 07/13/2014 12:56 PM CST ED Pain Assessment ED Pain Assessment Entered On: 07/13/2014 12:56 [employer] DISPATCHER Performed On: 07/13/2014 12:56 [employer]S DISPATCHER by GENEVA WOODSON RN Pain Assessment Pain Symptoms : Yes Pain Medication Requested : No GENEVA WOODSON RN - 07/13/2014 12:56 [employer] DISPATCHER Source: [employer] Document Id: [id number] FOREST [employer]HTERS DISPATCHER!4 [employer]TERS DISPATCHER Geneva Woodson R.N. - 07/13/2014 12:55 PM CST ED Disposition Summary ED Disposition Summary Entered On: 07/13/2014 12:56 [employer] DISPATCHER Performed On: 07/13/2014 12:55 [employer]HTERS DISPATCHER by GENEVA WOODSON RN ED Disposition Summary Accompanied By : Alone Mode of Discharge : Ambulatory Transportation : Private vehicle Printed Discharge Instructions Given to Patient : Yes Patient Status at Discharge from ED : Improved GENEVA WOODSON RN - 07/13/2014 12:55 [employer] DISPATCHER Source: [employer] Document Id: [id number] FOREST [employer] FIGHTERS DISPATCHER!7 ST FI[employer] FIGHTERS DISPATCHER Sabra Aguila M.D. - 07/13/2014 12:44 PM CST Arm pain-swelling Patient: JEREMY, ED Age: 54 years Sex: Male : 1960 Author: SABRA AGUILA MD Attachments: None Associated Diagnosis: Sprain Shoulder Active L; Tendonitis Elbow Basic Information Time seen: Immediately upon arrival. History source: Patient. Arrival mode: Private vehicle. History limitation: None. Additional information: Chief Complaint from Nursing Triage Note : Chief Complaint Description 07/13/2014 11:58 [employer]S DISPATCHER Chief Complaint Description 54 year old male presents to ER with left arm pain . History of Present Illness The patient presents with left. The onset was related to over use of left arm by cranking handle on large vehicle. The course/duration of symptoms is worsening and fluctuating in intensity. Type of injury: twisting and repetitive stress. The location where the incident occurred was at work. Location: left. Radiating pain: none. The character of symptoms is pain, dull and located over insertion of deltoid laterally. The degree of pain is moderate. The degree of swelling is moderate. There are exacerbating factors including activity and movement. There are relieving factors including immobilization and position. Risk factors consist of repetitive stress. Prior episodes: none. Therapy today: none. Ass ociated symptoms: back pain. Additional history: cumlative overuse. Review of Systems Constitutional symptoms: Weakness. Skin symptoms ENMT symptoms: Negative except as documented in HPI. Respiratory symptoms: Negative except as documented in HPI. Cardiovascular symptoms: Negative except as documented in HPI. Gastrointestinal symptoms: Negative except as documented in HPI. Genitourinary symptoms Musculoskeletal symptoms: Negative except as documented in HPI. Neurologic symptoms: Negative except as documented in HPI. Psychiatric symptoms: Negative except as documented in HPI. Health Status Allergies: Allergic Reactions (Selected) Severity Not Documented Cipro- No reactions were documented. Nonallergic Reactions (Selected) Severity Not Documented Influenza Virus Vaccine- Diarrhea.. Medications: (Selected) Prescriptions Prescribed Lasix 20 mg oral tablet: See Instructions, 1 tab(s) PO in morning and 2 tab in evening, 90 tab(s) allopurinol 300 mg oral tablet: 300 mg, 1 tab(s), PO, Daily, 90 tab(s) amLODIPine 10 mg oral tablet: 10 mg, 1 tab(s), PO, Daily, hypertension, 30 tab(s) hydrochlorothiazide 25 mg oral tablet: 25 mg, 1 tab(s), PO, Daily, Needs lab work for further refills, 30 tab(s) hydrocortisone 2.5% topical lotion: 1 jannie, Topical, 3xDay, 120 mL lisinopril 40 mg oral tablet: 40 mg, 1 tab(s), PO, 2xDay, needs lab work for further refills, 60 tab(s) metformin 1000 mg oral tablet: 1,000 mg, 1 tab(s), PO, 2xDay meal, Please advise visit needed for further refills., 180 tab(s) metoprolol tartrate 25 mg oral tablet: 25 mg, 1 tab(s), PO, 2xDay, 60 tab(s) omeprazole 20 mg oral delayed release capsule: 20 mg, 1 cap(s), PO, Daily, 90 cap(s) simvastatin 40 mg oral tablet: 40 mg, 1 tab(s), PO, Bedtime, Needs lab work for further refills, 30 tab(s) Documented Medications Documented Advil: 200 mg, PO, 2 tabs daily Cialis 20 mg oral tablet: 1 tab(s), PO, Daily, 6 tab(s), PRN Dok Plus: 2 tab(s), PO, Daily Lantus Solostar Pen 100 units/mL subcutaneous solution: 70 units, Subcut., Daily, 90 mL Victoza: 1.8 mg, Subcut., Daily. Past Medical/ Family/ Social History Medical history: Active Fracture Closed Radial head (ICD-9-CM 813.05): Onset on 09/29/2012 at 52 years. Comments: 09/30/2012 [employer]S DISPATCHER 15:06 STEVE COUCH CNP left Genital warts (ICD-9-CM 078.19) Comments: 09/30/2013 FOR[employer] FIGHTERS DISPATCHER 11:47 ANOOP MESSER CADDY onset unknown Tinea pedis* (ICD-9-CM 110.4) Comments: 09/30/2013 FOREST [employer] FIGHTERS DISPATCHER 11:47 ANOOP MESSER CADDY onset unknown Tinea cruris. (ICD-9-CM 110.3) Comments: 09/30/2013 FOREST [employer] FIGHTERS DISPATCHER 11:47 ANOOP MESSER CADDY onset unknown. Surgical history: Cystoscopy ([id number]) on 12/26/2009 at 49 Years. Comments: 02/20/2010 08:36 - STEVE ANDREA CNP [facility] / normal PSA, TOTAL SCREENING ([id number]) on 12/26/2009 at 49 Years. Comments: 02/20/2010 08:38 - STEVE ANDREA CNP Done at [facility] / Result: 1.55 Discectomy ([id number]) on 02/19/1989 at 28 Years. Comments: 12/28/2009 09:38 - MYROM, STEVE J [facility] KAY MACHINE OPERATOR lumbar L4-L5. Family history: Hypertension Father Congestive heart failure Father . Social history: Reviewed as documented in chart, Alcohol use: Denies, Tobacco use: Denies, Drug use:Denies, Occupation: Employed, Family/social situation: Intact family. Problem list: All Problems (Selected) Erectile dysfunction* / 607.84 / Confirmed BPH without urinary obstruction / 600.00 / Confirmed Urge Incontinence / 788.31 / Confirmed Eczema / 692.9 / Confirmed Obesity NOS / 278.00 / Confirmed Ulcer of skin NOS / 707.9 / Confirmed Genital warts / 078.19 / Confirmed Tinea pedis* / 110.4 / Confirmed Tinea cruris. / 110.3 / Confirmed Hyperlipidemia / 272.4 / Confirmed [...] Kidney stone / 592.0 Inactive: Pyelonephritis / 590.80. Physical Examination Vital Signs: Vital Signs 07/13/2014 12:07 FOR[employer]HTERS DISPATCHER Temperature Core 37.2 DegC Peripheral Pulse Rate 45 /min <LLOW Respiratory Rate 18 /min SpO2 93 % LOW Systolic Blood Pressure 137 mmHg Diastolic Blood Pressure 79 mmHg BP Location Left upper 07/13/2014 9:15 FOR[employer] FIGHTERS DISPATCHER Peripheral Pulse Rate 46 /min <LLOW Systolic Blood Pressure 156 mmHg HI Diastolic Blood Pressure 78 mmHg Mean Arterial Pressure 104 mmHg , Measurements 07/13/2014 12:07 FOREST [employer] FIGHTERS DISPATCHER Height 185 cm 07/13/2014 10:24 FOR[employer] FIGHTERS DISPATCHER Height 185 cm 07/13/2014 9:15 FOR[employer] FIGHTERS DISPATCHER Height 185 cm 07/13/2014 9:09 FOREST [employer] FIGHTERS DISPATCHER Height 185 cm , oxygen saturation. General: Alert, moderate distress and anxious, but not ill-appearing. Skin: Warm, dry, intact and no pallor. Head: Normocephalic and atraumatic. Eye: Pupils are equal, round and reactive to light, normal conjunctiva and vision grossly normal. Ears, nose, mouth and throat: Oral mucosa moist. Cardiovascular: Regular rate and rhythm, Normal peripheral perfusion and No edema. Respiratory: Lungs are clear to auscultation, respirations are non-labored, breath sounds are equal and Symmetrical chest wall expansion. Chest wall: No tenderness and No deformity. Back: Nontender and Normal alignment. Musculoskeletal: Normal ROM. normal strength. no swelling. Proximal upper extremity lateral, shoulder, arm, humerus, aligned and tenderness, no swelling, no abrasion. Gastrointestinal: Soft, Non distended and Normal bowel sounds. Genitourinary Neurological: Alert and oriented to person, place, time, and situation, No focal neurological deficit observed, CN II-XII intact, normal sensory observed, normal motor observed and normal speech observed. Lymphatics: No lymphadenopathy. Psychiatric: Cooperative, appropriate mood & affect and normal judgment. Medical Decision Making Differential Diagnosis:Sprain, strain, contusion. Documents reviewed:Emergency department nurses' notes. Reexamination/ Reevaluation Vital signs results included from flowsheet : Vital Signs 07/13/2014 12:07 FOREST [employer] FIGHTERS DISPATCHER Temperature Core 37.2 DegC Peripheral Pulse Rate 45 /min <LLOW Respiratory Rate 18 /min SpO2 93 % LOW Systolic Blood Pressure 137 mmHg Diastolic Blood Pressure 79 mmHg BP Location Left upper 07/13/2014 9:15 FOREST [employer] FIGHTERS DISPATCHER Peripheral Pulse Rate 46 /min <LLOW Systolic Blood Pressure 156 mmHg HI Diastolic Blood Pressure 78 mmHg Mean Arterial Pressure 104 mmHg Impression and Plan Diagnosis Sprain Shoulder Active L (Discharge, Emergency medicine, Medical) Tendonitis Elbow (Discharge, Emergency medicine, Medical) Plan Disposition: Discharged: to home. Patient was given the following educational materials: TENDONITIS, SPRAIN SHOULDER, MUSCLE STRAIN, Extremity. Limitations: Limited activity. Follow up with: KEVIN Qiu As Needed If symptoms worsen. Counseled: Patient, Regarding diagnosis, Regarding diagnostic results, Regarding prescription, Patient indicated understanding of instructions. Electronically Signed By: SABRA AGUILA MD On: 07/14/2014 10:08 AM Modified by and Electronically Signed by: SABRA AGUILA MD On: 07/14/2014 10:08 AM Source: [facility] POWERCHART Document Id: [id number] ST FIRE FIGHTERS DISPATCHER Manan Ramírez R.N. - 07/13/2014 12:03 PM CST ED Primary Assessment Document Has Been Updated ED Primary Assessment Entered On: 07/13/2014 12:05 FOREST FIRE FIGHTERS DISPATCHER Performed On: 07/13/2014 12:03 [employer] DISPATCHER by MANAN RAMÍREZ RN Reason For Visit (As Of: 07/13/2014 12:05:33 [employer] DISPATCHER) Problems(Active) BPH without urinary obstruction (ICD-9-CM :600.00 ) Name of Problem: BPH without urinary obstruction; Recorder: STEVE ANDREA CNP; Confirmation: Confirmed ; Classification: Medical ; Code: 600.00 ; Contributor System: EvertaleChart ; Last Updated: 02/15/2010 10:00 CDT ; [...] System: PowerChart ; Last Updated: 07/24/2011 10:45 [employer] DISPATCHER ; Life Cycle Date: 12/05/2010 ; Life [...] 11:46 - ANOOP QUEVEDO LPN onset unknown Fracture Closed Radial head (ICD-9-CM :813.05 ) Name of Problem: Fracture Closed Radial head ; OnsetDate: 09/29/2012 ; Recorder: STEVE ANDREA CNP; Confirmation: Confirmed ; Classification: Medical ; Code: 813.05 ; Contributor System: EvertaleChart ; Last Updated: 09/30/2012 15:06 [employer] DISPATCHER ; Life Cycle Date: 09/30/2012 ; Life [...] Code: 695.89 ; Last Updated: 07/14/2012 14:36 [employer] DISPATCHER ; Life Cycle Status: Active ; Responsible [...] Medical ; Code: 278.00 ; Contributor System: ScreenHits ; Last Updated: 09/05/2010 9:56 [employer] DISPATCHER ; Life Cycle Date: 09/05/2010 ; Life [...] ICD-9-CM ; Comments: 09/30/2013 11:IKE ISAACICA R CADDY onset unknown Ulcer of skin NOS (ICD-9-CM :707.9 ) Name of Problem: Ulcer of skin NOS ; Recorder: HALEIGH SCHULTZ CNP; Confirmation: Confirmed ; Classification: UPDATE NEEDED ; Code: 707.9 ; Contributor System: PowerChart ; Last Updated: 09/18/2010 8:25 [employer] DISPATCHER ; Life Cycle Date: 09/18/2010 ; Life Cycle Status: Active ; Responsible Provider: HALEIGH SCHULTZ CNP; Vocabulary: ICD-9-CM ; Comments: 09/30/2013 11:IKE ISAACICA R CADDY onset unknown Unspecified Adjustment Reaction (ICD-9-CM :309.9 ) Name of Problem: Unspecified Adjustment Reaction ; Onset Date: 05/05/2013 ; Confirmation: Confirmed ; Classification: Medical ; Code: 309.9 ; Contributor System: [facility]_PR_UPLOAD ; Last Updated: 12/03/2013 18:36 CDT ; [...] - ANOOP QUEVEDO LPN onset unknown Diagnoses(Active) Arm pain-swelling Date: 07/13/2014 ; Diagnosis Type: Reason For Visit ; Confirmation: Complaint of ;Clinical Dx: Arm pain-swelling ; Classification: Medical ; Clinical Service: Non-Specified ; Code: PNED ; Probability: 0 ; Diagnosis Code: [id number] Triage Mode of Arrival ED : Private vehicle Track : Medical Languages : [place] Treatments Prior to Arrival : Home treatments Is Patient Female and 13-50 no hysterectomy : No MANAN RAMÍREZ RN - 07/13/2014 12:03 [employer] DISPATCHER Pain Assessment Pain Symptoms : Yes MANAN RAMÍREZ RN - 07/13/2014 12:03 [employer] DISPATCHER ID Screen Drug Resistant Organism : No Travel Within Last 21 Days : No MANAN RAMÍREZ RN - 07/13/2014 12:03 [employer] DISPATCHER Respiratory Airway : Patent Respirations : Unlabored Respiratory Pattern : Regular MANAN RAMÍREZ RN - 07/13/2014 12:03 [employer] DISPATCHER Cardiovascular Skin Color : Normal for ethnicity Skin Description : Dry Skin Temperature : Warm MANAN RAMÍREZ RN - 07/13/2014 12:03 [employer] DISPATCHER Neurological Last Well Time Known : Not applicable Level of Consciousness : Alert Orientation : Oriented x 3 Characteristics of Speech : Appropriate for age MANAN RAMÍREZ RN - 07/13/2014 12:03 [employer]EST [employer]TER[employer] DISPATCHER ED Psychosocial Affect/Behavior : Calm, Cooperative, Appropriate Domestic Abuse Concerns : None MANAN RAMÍREZ RN - 07/13/2014 12:03 [employer] DISPATCHER Gastrointestinal Nutrition ED : Adequate MANAN RAMÍREZ RN - 07/13/2014 12:03 [employer] DISPATCHER Musculoskeletal Fall Prevention Education Provided : NA MANAN RAMÍREZ RN - 07/13/2014 12:03 [employer] DISPATCHER Social Habits Tobacco Use/Currently Using : No Smoking Status : Never smoker MANAN RAMÍREZ RN - 07/13/2014 12:03 [employer] DISPATCHER Tobacco Use Grid Last Use : never MANAN RAMÍREZ RN - 07/13/2014 12:03 [employer] DISPATCHER Alcohol Use Grid Alcohol Use : No MANAN RAMRÍEZ RN - 07/13/2014 12:03 [employer] DISPATCHER Recreational Drug Use Grid Drug Use : None MANAN RAMÍREZ RN - 07/13/2014 12:03 [employer] DISPATCHER Source: [facility] POWERCHART Document Id: [id number] FOREST FI[employer] FIGHTERS DISPATCHER![address] [employer] DISPATCHER Manan Ramírez R.N. - 07/13/2014 11:58 AM CST ED Triage Assessment Document Has Been Updated ED Triage Assessment Entered On: 07/13/2014 12:03 [employer] DISPATCHER Performed On: 07/13/2014 11:58 [employer] DISPATCHER by MANAN RAMÍREZ RN Reason For Visit (As Of: 07/13/2014 12:03:04 [employer] DISPATCHER) Problems(Active) BPH without urinary obstruction (ICD-9-CM :600.00 ) Name of Problem: BPH without urinary obstruction; Recorder: STEVE ANDREA CNP; Confirmation: Confirmed ; Classification: Medical ; Code: 600.00 ; Contributor System: EvertaleChart ; Last Updated: 02/15/2010 10:00 CDT ; [...] System: PowerChart ; Last Updated: 07/24/2011 10:45 [employer]EST [employer] DISPATCHER ; Life Cycle Date: 12/05/2010 ; Life [...] Medical ; Code: 607.84 ; Contributor System: EvertaleChart ; Last Updated: 12/28/2009 9:40 CDT ; Life Cycle Date: 12/28/2009 ; Life Cycle Status: Active ; Responsible Provider: STEVE ANDREA CNP; Vocabulary: ICD-9-CM ; Comments: 09/30/2013 11:46 - ANOOP QUEVEDO LPN onset unknown Fracture Closed Radial head (ICD-9-CM :813.05 ) Name of Problem: Fracture Closed Radial head ; OnsetDate: 09/29/2012 ; Recorder: STEVE ANDREA CNP; Confirmation: Confirmed ; Classification: Medical ; Code: 813.05 ; Contributor System: PowerChart ; Last Updated: 09/30/2012 15:06 [employer] DISPATCHER ; Life Cycle Date: 09/30/2012 ; Life [...] Code: 695.89 ; Last Updated: 07/14/2012 14:36 [employer] DISPATCHER ; Life Cycle Status: Active ; Responsible [...] Medical ; Code: 278.00 ; Contributor System: ScreenHits ; Last Updated: 09/05/2010 9:56 [employer] DISPATCHER ; Life Cycle Date: 09/05/2010 ; Life [...] ICD-9-CM ; Comments: 09/30/2013 11:ANOOP ISAAC R CADDY onset unknown Ulcer of skin NOS (ICD-9-CM :707.9 ) Name of Problem: Ulcer of skin NOS ; Recorder: HALEIGH SCHULTZ CNP; Confirmation: Confirmed ; Classification: UPDATE NEEDED ; Code: 707.9 ; Contributor System: PowerChart ; Last Updated: 09/18/2010 8:25 FOREST [employer] DISPATCHER ; Life Cycle Date: 09/18/2010 ; Life Cycle Status: Active ; Responsible Provider: HALEIGH SCHULTZ CNP; Vocabulary: ICD-9-CM ; Comments: 09/30/2013 11:ANOOP ISAAC CADDY onset unknown Unspecified Adjustment Reaction (ICD-9-CM :309.9 ) Name of Problem: Unspecified Adjustment Reaction ; Onset Date: 05/05/2013 ; Confirmation: Confirmed ; Classification: Medical ; Code: 309.9 ; Contributor System: [facility]HX_PR_UPLOAD ; Last Updated: 12/03/2013 18:36 CDT ; Life Cycle Status: Active ; Vocabulary: ICD-9-CM ; Comments: - Unspecified adjustment reaction Urge Incontinence (ICD-9-CM :788.31 ) Name of Problem: Urge Incontinence ; Recorder: STEVE ANDREA; Confirmation: Confirmed ; Classification: Medical ; Code: 788.31 ; Contributor System: EvertaleChart ; Last Updated: 02/20/2010 8:39 CDT ; Life Cycle Date: 02/20/2010 ; Life Cycle Status: Active ; Responsible Provider: STEVE ANDREA CNP; Vocabulary: ICD-9-CM ; Comments: 09/30/2013 11:46 - ANOOP QUEVEDO CADDY onset unknown Diagnoses(Active) Arm pain-swelling Date: 07/13/2014 ; Diagnosis Type: Reason For Visit ; Confirmation: Complaint of ;Clinical Dx: Arm pain-swelling ; Classification: Medical ; Clinical Service: Non-Specified ; Code: PNED ; Probability: 0 ; Diagnosis Code: [id number] Triage Chief Complaint Description : 54 year old male presents to ER with left arm pain Mode of Arrival ED : Private vehicle Track : Medical Languages : [place] Treatments Prior to Arrival : Home treatments Is Patient Female and 13-50 no hysterectomy : No MANAN RAMRÍEZ RN - 07/13/2014 11:58 [employer] DISPATCHER Pain Assessment Pain Symptoms : Yes MANAN RAMÍREZ RN - 07/13/2014 11:58 [employer] DISPATCHER Pain Pain Assessment Grid Pain 1 Location : Upper arm Intensity : 0 MANAN RAMÍREZ RN - 07/13/2014 11:58 FOREST [employer] DISPATCHER ED Physician Notification Time ED Physician Notification Time : 07/13/2014 12:02 [employer] DISPATCHER MANAN RAMÍREZ RN - 07/13/2014 11:58 FOREST [employer]TERS DISPATCHER ERIN DCP GENERIC CODE Tracking Acuity : 4 -Less Urgent Tracking Group : [facility] ED MANAN RAMÍREZ RN - 07/13/2014 11:58 [employer] DISPATCHER Allergy (As Of: 07/13/2014 12:03:04 [employer] DISPATCHER) Allergies (Active) Cipro Estimated Onset Date: Unspecified ; Created By: STEVE ANDREA CNP; Reaction Status: Active ;Category: Drug ; Substance: Cipro ; Type: Allergy ; Updated By: STEVE ANDREA CNP; Reviewed Date: 07/13/2014 12:02 [employer] DISPATCHER Influenza Virus Vaccine Estimated Onset Date: Unspecified ; Reactions: diarrhea ; Created By: STEVE ANDREA CNP; Reaction Status: Active ; Category: Drug ; Substance: Influenza Virus Vaccine ; Type: Intolerance ; Updated By: STEVE ANDREA CNP; Reviewed Date: 07/13/2014 12:02 FOREST [employer] DISPATCHER ID Screen Drug Resistant Organism : No Travel Within Last 21 Days : No MANAN RAMÍREZ RN - 07/13/2014 11:58 [employer] DISPATCHER Immunizations Immunizations Current : Unknown Influenza : None MANAN RAMÍREZ RN - 07/13/2014 11:58 FOREST [employer]S DISPATCHER Source: [facility] [employer] Document Id: [id number] FOREST FIRE FIGHTERS DISPATCHER![address] [employer] DISPATCHER documented in this encounter Miscellaneous Notes Miscellaneous - Geneva Woodson R.N. - 07/13/2014 12:56 PM CST Valuables/Belongings Valuables/Belongings Entered On: 07/13/2014 12:56 [employer]EST [employer] DISPATCHER Performed On: 07/13/2014 12:56 FOREST [employer]TERS DISPATCHER by GENEVA WOODSON RN Valuables/Belongingglendy Home Medication Disposition : None brought in with patient GENEVA WOODSON RN - 07/13/2014 12:56 FOREST [employer]HTERS DISPATCHER Source: [facility] [employer] Document Id: [id number] FOREST [employer]TERS DISPATCHER![address] [employer]TER[employer] DISPATCHER Miscellaneous - Geneva Woodson R.N. - 07/13/2014 11:26 AM CST Facility Charge Ticket 2.0 11.0 DX Facility Charge Ticket 2.0 11.0 DX Entered On: 07/13/2014 12:57 [employer] DISPATCHER Performed On: 07/13/2014 11:26 [employer]TERS DISPATCHER by GENEVA WOODSON RN Facility Charge Ticket 2.0 11.0 DX ED Other Charges : Standard ED Encounter TVL Level Translated RTF : Arm pain-swelling, Arm pain-swelling TVL:3 TVL Level for Facility Charge Ticket : Level 3 Arrival Mode Calc : 1 Mode of Arrival ED : Private vehicle [place] Mode of Arrival Interpreted : Standard [place] Process Management : None [place] Order Management : None 30 Minutes Critical Care : No Nursing Notes RTF : Triage Forms ED Triage Assessment,07/13/14 11:58,MANAN RAMÍREZ RN Nursing Notes ED Primary Assessment,07/13/14 12:03,MANAN RAMÍREZ RN ED Pain Assessment,07/13/14 12:56,GENEVA WOODSON RN [place] Nursing Assessment : Triage and 1-2 nursing assessments [place] Disposition : Discharge [place] Total Points with Diagnosis Control : 5 [place] Visit Level : 51695 Level 3 Treatments Prior to Arrival : Home treatments GENEVA WOODSON RN - 07/13/2014 12:56 [employer] DISPATCHER [facility] POWERCH[facility] Document Id: [id number] FOREST FI[employer]HTERS DISPATCHER![address] [employer] DISPATCHER documented in this encounter Plan of Treatment Not on filedocumented as of this encounter Visit Diagnoses Not on filedocumented in this encounter Additional Health Concerns Assessment Noted Time PHQ-9 Depression Total Score: 18 02/14/2013 9:53 AM CD T documented as of this encounter
--- OUTSIDE RECORDS SUMMARY | 2022-07-29 10:54 | XMS_ITS | Encounter Summary ---
:1960 Author Organization [facility] Address [address] [place] [address] Care Team Providers Name Role Phone Unavailable Primary Care Provider Unavailable Encounter Details Date Type Department Care Team Description 08/12/2014 - 08/25/2014 Hospital Encounter HX NO MAPPING Social History [...]
--- OUTSIDE RECORDS SUMMARY | 2022-07-29 10:54 | XMS_ITS | Encounter Summary ---
:1960 Author Organization [facility] Address [address] [place] [address] Care Team Providers Name Role Phone Unavailable Primary Care Provider Unavailable Encounter Details Date Type Department Care Team Description 11/25/2013 Hospital Encounter HX [facility] Cintia lindquist M.D. [address] [place] [phone] (Wo rk) Social History Tobacco Use Types Packs/Day Years Used Date Smoking Tobacco: Never Assessed Sex Assigned at Date Recorded Not on file documented as of this encounter Miscellaneous Notes Miscellaneous - Shirlene Abbott R.N. - 11/28/2013 4:13 PM CDT Med Management Document Contains Addenda Addendum by SHIRLENE ABBOTT RN on 29 November 2013 14:45:48 CDT noted Addendum by CINTIA KILGORE MD on 29 November 2013 14:43:01 CDT From: CINTIA KILGORE MD Sent: 11/29/2013 14:43:00 CDT Subject: RE:Med Management Approved Order:omeprazole (omeprazole 20 mg oral delayed release capsule) 1 cap(s) PO Daily Qty: 90 cap(s) Refills: 3 Route To Pharmacy - [id number] Signed by CINTIA KILGORE MD 11/29/2013 14:42:55 From: SHIRLENE ABBOTT RN To: CINTIA KILGORE MD; SHIRLENE ABBOTT RN; Sent: 11/28/2013 16:13:30 CDT Subject: Med Management On hold pending signature Order:omeprazole (omeprazole 20 mg oral delayed release capsule) 1 cap(s) PO Daily Qty: 90 cap(s) Refills: 3 Route To Pharmacy - [facility][id number] We have not prescribed this in the past, but it is noted on med list. Prescribed by Cindy Moy CNP. Add dx to list to make it refillable per protocol if you'd like. Source: [facility] Document Id: [id number] Miscellaneous - Tiffany Owens, L.P.N. - 11/25/2013 4:24 PM CDT External Document (CCD) From: TIFFANY OWENS LPN To: CINTIA KILGORE MD; Sent: 11/25/2013 16:24:25 CDT Subject: External Document (CCD) Dr. Song,pt. here for b/p check. 152/88 large cuff,left arm.Pulse 45.reg. rate.Pt.states will has an appt. with you December 07.He stated he is out of a b/p rx. that his insurance is not covering. Although [facility] pharm. had callled and shared he had a couple of rxs to be picked up.Thank you. co Source: [facility] Document Id: [id number] documented in this encounter Plan of Treatment Not on filedocumented as of this encounter Visit Diagnoses Not on filedocumented in this encounter Additional Health Concerns Assessment Noted Time PHQ-9 Depression Total Score: 18 02/14/2013 9:53 AM CD T documented as of this encounter
--- OUTSIDE RECORDS SUMMARY | 2022-07-29 10:54 | XMS_ITS | Encounter Summary ---
:1960 Author Organization [facility] Address [address] [place] [address] Care Team Providers Name Role Phone Unavailable Primary Care Provider Unavailable Encounter Details Date Type Department Care Team Description 03/14/2014 Hospital Encounter [facility] Juan Sears, P. A.-C. Social History Tobacco Use Types Packs/Day Years [...] - - Height 185 cm (6' 0.84) 03/14/2014 1:19 PM CDT Body Mass Index - - documented in this encounter Plan of Treatment Not on filedocumented as of this encounter Visit Diagnoses Not on filedocumented in this encounter Additional Health Concerns Assessment Noted Time PHQ-9 Depression Total Score: 18 02/14/2013 9:53 AM CD T documented as of this encounter
--- OUTSIDE RECORDS SUMMARY | 2022-07-29 10:54 | XMS_ITS | Encounter Summary ---
:1960 Author Organization [facility] Address [address] [place] [address] Care Team Providers Name Role Phone Unavailable Primary Care Provider Unavailable Encounter Details Date Type Department Care Team Description 07/13/2014 Hospital Encounter [facility] Tigist Cosme M.D. 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
--- OUTSIDE RECORDS SUMMARY | 2022-07-29 10:54 | XMS_ITS | Encounter Summary ---
:1960 Author Organization [facility] Address [address] [place] [address] Care Team Providers Name Role Phone Unavailable Primary Care Provider Unavailable Encounter Details Date Type Department Care Team Description 12/15/2013 Hospital Encounter HX [facility] Song Cintia Jorgensen M.D. [address] [place] [phone] (wo rk) Social History Tobacco Use Types Packs/Day Years Used Date Smoking Tobacco: Never Assessed Sex Assigned at Date Recorded Not on file documented as of this encounter Last Filed Vital Signs Vital Sign Reading Time Taken Comments Blood Pressure 151/84 12/15/2013 5:38 PM CDT Pulse 54 12/15/2013 5:28 PM CDT Temperature - - Respiratory Rate 16 12/15/2013 5:28 PM CDT Oxygen Saturation - - Inhaled Oxygen Concentration - - Weight 159 kg (350 lb 8.5 oz) 12/15/2013 5:28 PM CDT Height - - Body Mass Index 46.46 11/18/2013 4:35 PM CDT documented in this encounter Miscellaneous Notes Miscellaneous - Cintia Cobb M.D. - 12/15/2013 7:18 PM CDT Ambulatory Patient Summary [id number] [place], [place] [phone] Visit Information Name: LAZ LUNA [facility] Number: [id number] Current Date: 12/15/2013 19:18:44 Physicians Attending Provider: CINTIA KILGORE MD Primary [...] tablet) 1 Tablet(s), Oral, once a day docusate-senna (Dok Plus) 2 Tablet(s), Oral, once a day furosemide (Lasix 20 mg oral tablet) 2 Tablet(s), Oral, once a day This is a CHANGE hydrochlorothiazide (hydrochlorothiazide 25 mg oral tablet) 1 Tablet(s), Oral, once a day to replacechlorthalidone as Prior Auth was denied.Please update pt hydrocortisone topical (hydrocortisone 2.5% topical lotion) 1 [...] 0.5 Tablet(s), Oral, two times a day omeprazole [...] the Following Medications: Medication list as of 12-15-13 19:18 Attention: If you have any medications at [...] Electronically Signed By: CINTIA KILGORE MD Signed On:15-DEC-2013 19:18:26 Your Allergies & Intolerances Substance Reaction Symptoms [...] Upcoming Appointments Date Time Location Reason Provider 12/19/2013 17:00 [facility] PT[facility]OT rt shoulder impingment Rahel Donaldson 12/21/2013 18:00 [facility] PT/OT rt shoulder impingment Ade Gandhi 01/17/2014 15:30 [facility] Follow up Shoulder Ester MENDEZ, John Lindsay Attention: Contact your local Clinic if further appointment detail needed. Your Goals/Additional instructions: Source: [facility] POWERCHART Document Id: [id number] Miscellaneous - Cintia Cobb M.D. - 12/15/2013 7:18 PM CDT Ambulatory Discharge Medication List [id number] [place], [place] [phone] Visit Information Name: LAZ LUNA [facility] Number: [id number] Visit Date: 12/15/2013 19:18:42 Attending Provider: CINTIA KILGORE MD Primary Care Provider: CINTIA KILGORE MD CARLYLELAZ has been given the following list of [...] tablet) 1 Tablet(s), Oral, once a day docusate-senna (Dok Plus) 2 Tablet(s), Oral, once a day furosemide (Lasix 20 mg oral tablet) 2 Tablet(s), Oral, once a day This is a CHANGE hydrochlorothiazide (hydrochlorothiazide 25 mg oral tablet) 1 Tablet(s), Oral, once a day to replacechlorthalidone as Prior Auth was denied.Please update pt hydrocortisone topical (hydrocortisone 2.5% topical lotion) 1 [...] 0.5 Tablet(s), Oral, two times a day omeprazole [...] the Following Medications: Medication list as of 12-15-13 19:18 Attention: If you have any medications at [...] Electronically Signed By: CINTIA KILGORE MD Signed On:15-DEC-2013 19:18:26 Additional Information: Source: [facility] [employer] Document Id: [id number] Osbaldo - Anne Marie Tuttle L.P.N. - 12/15/2013 5:38 PM CDT Ambulatory Vitals Height Weight Ambulatory Vitals Height Weight Entered On: 12/15/2013 17:39 CDT Performed On: 12/15/2013 17:38 CDT by ANNE MARIE TUTTLE LPN, RT Vitals/Ht/Wt Systolic Blood Pressure : 151 mmHg (HI) Diastolic Blood Pressure : 84 mmHg NIBP Mean : 106 mmHg BP Location : Right upper extremity Blood Pressure Cuff Size : Large ANNE MARIE TUTTLE LPN, RT - 12/15/2013 17:38 CDT Source: [facility] [employer] Document Id: [id number] CDT!7 Anne Marie Dasilva L.P.N. - 12/15/2013 5:28 PM CDT Adult Assisted Living Executive Director Intake/History Adult Assisted Living Executive Director Intake/History Entered On: 12/15/2013 17:34 CDT Performed On: 12/15/2013 17:28 CDT by ANNE MARIE TUTTLE LPN, RT Intake Chief Complaint : f/u BP concerned about back of left leg hard and swollen 3-5 days. Temperature Core : 36.2 DegC(Converted to: 97.2 DegF) (LOW) Peripheral Pulse Rate : 54 /min (LOW) Respiratory Rate : 16 /min Systolic Blood Pressure : 164 mmHg (>HHI) Diastolic Blood Pressure : 82 mmHg NIBP Mean : 109 mmHg BP Location : Right upper extremity Blood Pressure Cuff Size : Large SpO2 : 91 % (LOW) Oxygen Therapy : Room air Actual Weight : 159 kg(Converted to: 350 lb 9 oz) Weight Source : Standing scale Dosing Weight Clinic : 159 kg ANNE MARIE TUTTLE LPN, RT - 12/15/2013 17:28 CDT General Info Information Given By : Patient Languages : Nigerien ANNE MARIE TUTTLE LPN, RT - 12/15/2013 17:28 CDT Subjective Pain Symptoms : Yes ANNE MARIE TUTTLE LPN, RT - 12/15/2013 17:28 CDT Pain Pain Assessment Grid Pain 1 Location : Upper leg Laterality : Left ANNE MARIE TUTTLE LPN, RT - 12/15/2013 17:28 CDT Dependent Habits Tobacco Use/Currently Using : No Smoking Status : Never smoker ANNE MARIE TUTTLE LPN, RT - 12/15/2013 17:28 CDT Tobacco Use Grid Last Use : never ANNE MARIE TUTTLE LPN, RT - 12/15/2013 17:28 CDT Caffeine Use Grid Caffeine Use : Current Type : Coffee, Soft drinks Frequency : Weekly Amount : soda- weekly; coffee- 1x/week ANNE MARIE TUTTLE LPN, RT - 12/15/2013 17:28 CDT Recreational Drug Use Grid Drug Use : None ANNE MARIE TUTTLE LPN, RT - 12/15/2013 17:28 CDT Source: [employer] Document Id: [id number] CDT!41 documented in this encounter Plan of Treatment Not on filedocumented as of this encounter Procedures Procedure Name Priority Date/Time Associated Comments Diagnosis NT-PRO B-TYPE Routine 12/15/2013 6:10 PM Results for this NATRIURETIC PEPTIDE CDT procedur e are in (BNP), S the results section. D-DIMER, P Routine 12/15/2013 6:10 PM Results f or this CDT procedure are i n the results section. CBC WITHOUT Routine 12/15/2013 6:10 PM Results f or this DIFFERENTIAL, B CDT procedure ar e in the results section. BASIC METABOLIC Routine 12/15/2013 6:10 PM Result s for this PANEL, S/P CDT procedure are i n the results section. documented in this encounter Results (ABNORMAL) D-Dimer (12/15/2013 6:10 PM CDT) P athologist Signature D-Dimer, P 0.67 (H) 0.00 - 0.50 POWERCHART [id number] Comment: Results of this test should always be in terpreted in conjunction with the patient's medical history, clinical presentation and other findings. DVT and PE clinical diagnosis should not be based on the D-Dimer result alone. The measurement of D-Dimer should not be used as an aid in the diagnosis of VTE, in patients with: -Therapeutic dose anticoagulant therapy for >24 hours -Fibrinolytic therapy within previous 7 days -Trauma or surgery within previous 4 wee ks -Disseminated malignancies -Aortic aneurysm -Sepsis, severe infections, pneumonia, s evere skin infections -Liver cirrhosis - Specimen (Source) Anatomical Collection Method Collection Time Re ceived Time Location / / Volume Laterality Blood 12/15/2013 6:10 PM CDT Cintia Copeland M.D. LAB BLOOD ADD-ON Performing Organization Address City/State/ZIP Code Phon e Number POWERCHART CBC without Differential (12/15/2013 6:10 PM CDT) P athologist Signature Leukocytes 8.4 3.5 - 10.5 POWERCHART X109L Erythrocytes 4.93 4.32 - 5.72 POWERCHART [id number] Hemoglobin 15.0 13.5 - 17.5 POWERCHART GDL Hematocrit 43.9 38.8 - 50.0 POWERCHART MCV 89.0 81.0 - 95.0 POWERCHART FL HX RDW 13.8 11.8 - 15.6 POWERCHART Platelet Count 180 150 - 450 POWERCHART [id number] Specimen (Source) Anatomical Collection Method Collection Time Re ceived Time Location / / Volume Laterality Blood 12/15/2013 6:10 PM CDT Cintia Copeland M.D. LAB BLOOD ADD-ON Performing Organization Address City/State/ZIP Code Phon e Number POWERCHART (ABNORMAL) BMP (Basic Metabolic Panel) (12/15/2013 6:10 PM CDT) Analysis Performed At Patho logist Time Signature Anion Gap 13 10 - 20 POWERCHART MMOLL BUN (Blood Urea 22 (H) 7 - 18 POWERCHART Nitrogen), S MGDL Chloride, S 97 (L) 98 - 107 POWERCHART MMOLL CO2 Total 30.0 (H) 23.0 - POWERCHART 29.0 MMOLL Creatinine 1.15 0.60 - POWERCHART 1.30 MGDL Glucose 261 (H) 70 - 139 POWERCHART MGDL Calcium, Total, 9.1 8.6 - 10.0 POWERCHART S MGDL Sodium, S 135.9 135.0 - POWERCHART 145.0 MMOLL Potassium, S 3.7 3.6 - 4.8 POWERCHART MMOLL HXeGFR (MDRD) >60 >=60 POWERCHART [id number] eGFR >60 >=60 POWERCHART Black/ [id number] Tristanian Specimen (Source) Anatomical Collection Method Collection Time Re ceived Time Location / / Volume Laterality Blood 12/15/2013 6:10 PM CDT Cintia Copeland M.D. LAB BLOOD ADD-ON Performing Organization Address City/State/ZIP Code Phon e Number POWERCHART (ABNORMAL) NT-Pro B-Type Natriuretic Peptide (BNP) (12/15/2013 6:10 PM CDT) Patholo gist Method Time Signature B-Type 428.30 (H) 10.00 - POWERCHART Natriuretic 68.00 Peptide (BNP) PGML Specimen (Source) Anatomical Collection Method Collection Time Re ceived Time Location / / Volume Laterality Blood 12/15/2013 6:10 PM CDT Cintai Copeland M.D. LAB BLOOD ADD-ON Performing Organization Address City/State/ZIP Code Phon e Number POWERCHART documented in this encounter Visit Diagnoses Not on filedocumented in this encounter Additional Health Concerns Assessment Noted Time PHQ-9 Depression Total Score: 18 02/14/2013 9:53 AM CD T documented as of this encounter
--- OUTSIDE RECORDS SUMMARY | 2022-07-29 10:54 | XMS_ITS | Encounter Summary ---
:1960 Author Organization [facility] Address [address] [place] [address] Care Team Providers Name Role Phone Unavailable Primary Care Provider Unavailable Encounter Details Date Type Department Care Team Description 07/27/2014 [facility] Cintia lindquist M.D. 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
--- OUTSIDE RECORDS SUMMARY | 2022-07-29 10:54 | XMS_ITS | Encounter Summary ---
:1960 Author Organization [facility] Address [address] [place] [address] Care Team Providers Name Role Phone Unavailable Primary Care Provider Unavailable Encounter Details Date Type Department Care Team Description 12/14/2013 - Hospital Encounter HX [facility] John Norman, 06/30/2014 PARKER Riggs [address] [place] [phone] Social History Tobacco Use Types Packs/Day Years Used Date Smoking Tobacco: Never Assessed Sex Assigned at Date Recorded Not on file documented as of this encounter Discharge Summaries Rigoberto Bello, P.T. - 04/24/2014 12:00 AM CDT [id number] PHYSICAL THERAPY DISCHARGE NOTE The patient was initially evaluated on 12/14/2013. He was progressed with outpatient physical therapy for right shoulder impingement. He was referred by Dr. Norman for this. Patient was progressed but he did not make full progress with outpatient physical therapy as he continued to have discomfort andwas not fully compliant with home exercise program. Patient was unable to meet his goals and he was referred back to Orthopedics for a consult. Patient did not follow up with Physical Therapy after this point in time. He was seen for a total of 6 visits including initial evaluation, and then referred back to Orthopedics. At this point in time, patient is discharged from outpatient physical therapy. The patient does have physical therapist's business card for any future needs of therapy. Patient was not seen for discharge. Rigoberto Bello D.P.T./caron Electronically Signed By: RIGOBERTO BELLO DPT On: 04/26/2014 01:16 PM Modified by and Electronically Signed by: RIGOBERTO BELLO DPT On: 04/26/2014 01:16 PM Source: [facility] Document Id: [id number] documented in this encounter Progress Notes Micah Donaldson P.T. - 01/11/2014 12:00 AM CDT [id number] PHYSICAL THERAPY PROGRESS NOTE CHIEF COMPLAINT/REASON FOR VISIT Patient does report to physical therapy today reporting that his shoulder is feeling about the same.He had been better about doing his exercises since his last visit it seems. He is finding time to dothings while he is waiting around between loads to get the exercises in, it does not seem like he has been doing them completely as prescribed, but seems to be doing a better job with the exercises. Hehas good times and bad times reporting it is not waking him up at night, but there are times that ifhe rolls over and he is sleeping in the wrong position, it does get sore. He has not been on motorcycle. Really throughout the day it feels okay and does not bother him when turning the crank on the trunk unless he catches it wrong. IMPRESSION/REPORT/PLAN Today we started with patient with body blade for flexion-extension internal and external rotation for 1 minute for each of these. We performed 3 sets of 10 repetitions of 5 pounds for biceps curls. Hehad no pain with this. We then worked with patient to find exercises that he can do throughout his day at work that do not need extra equipment and he can fit in in between other activities throughout his day, so at this time, we do want patient to try to continue with the other exercises that have been given to him at least 2 to 3 times per day, but what we want him to get in every day is scapular retraction, pushups with the plus on the wall, bent over rows, bent over shoulder extension and we actu ally gave him isometrics as these are easier for him for the muscles but they are getting the muscles working more than doing nothing at all. The patient did demonstrate that he felt comfortable and felt that he could get these in throughout the day. He does have followup with Dr. Norman next week. Quyen have a conversation with Dr. Norman prior to that and discussed that really we have been working for 4 weeks in physical therapy. Patient has been seen by both myself and Rigoberto Bello and seems to be making slow gains. Patient does prefer to do his exercise while at therapy but continue to advise the patient that our goal is for him to be independent in a home program so he no longer needs to come to therapy. Plan to continue. We will reassess our goals and plan after he sees Dr. Norman next week. Micah Donaldson D.P.T./caron Electronically Signed By: MICAH DONALDSON DPT On: 01/19/2014 08:36 AM Modified by and Electronically Signed by: MICAH DONALDSON DPT On: 01/19/2014 08:36 AM Source: [facility] Document Id: [id number] Rigoberto Bello P.T. - 01/04/2014 12:00 AM CDT [id number] PHYSICAL THERAPY PROGRESS NOTE CHIEF COMPLAINT Patient reports that he has been having more achiness and discomfort in the right biceps tendon area. He hasn't been doing his exercises due to this discomfort. TREATMENT IN TODAY'S SESSION Began with scaption with 2 pound weights 10 reps 2 sets. Then did the body blade into scaption, abduction at internal rotation at waist level and at chest level for about 30 seconds at each position and then did another set in each position. Patient then did PNF pattern flexion and extension, D2, withorange resistance band, and patient tolerated well 10 reps each. Wall pushups with a plus 10 reps. IMPRESSION/REPORT/PLAN At this point in time, patient is continuing to have discomfort in his right shoulder. He is not very compliant with exercises at home. Not compliant with the icing. At this point in time, progress remains minimal. Did discuss with patient if we are not gaining progress in therapy, we will refer back to Dr. Norman. We will assess how patient is doing in next session when he works with Micah Donaldson DPT. Patient was seen today for 30 minutes of therapeutic exercises. Rigoberto Bello D.P.T./caron Electronically Signed By: RIGOBERTO BELLO DPT On: 01/06/2014 08:42 AM Modified by and Electronically Signed by: RIGOBERTO BELLO DPT On: 01/06/2014 08:42 AM Source: [facility] Document Id: [id number] Rigoberto Bello P.T. - 12/28/2013 12:00 AM CDT [id number] PHYSICAL THERAPY PROGRESS NOTE CHIEF COMPLAINT Patient did have a fall earlier. He is feeling much better now. Still very tender to the biceps tendon on the right upper extremity and his elbow is also still painful. He tolerated session today very well without any increased complain in discomfort. TREATMENT IN TODAY'S SESSION Began with push-ups at the wall with a plus then progressed to supine shoulder protraction with a 5 pound weight 15 reps each and tolerated well. Patient then did shoulder retraction and shoulder extension with a 5 pound weight 15 reps and 2 sets. Patient then did ball walks up the wall with a blue weighted ball, 10 reps overall, clockwise and counter-clockwise rotation with upper extremity at 90 degrees of flexion and then in scaption with the red weighted ball. Patient then did tossing to the rebounder with the green weighted ball at 15 reps and 2 sets and progressed with the red weighted ball at15 reps. The patient tolerated all very well. Patient then did the body blade with arm down at side progressing to 90 degrees of flexion, 90 degrees of abduction then internal rotation at belly and internal rotation at chest. Did this for about 30 seconds and then did each position for another set. Patient tolerated well. Patient was given an ice pack to use at home as he does not have an ice pack. He was educated to ice the biceps tendon today after our session for about 15 to 20 minutes. IMPRESSION/REPORT/PLAN Plan to begin going down to 1 session a week. Patient is okay with this at this time. We will continue to progress in our sessions and progress with home exercise program. Patient was seen today for 30 minutes of therapeutic exercise. Fidel AguiarPPiliT./caron Electronically Signed By: RIGOBERTO BELLO DPT On: 12/30/2013 07:41 AM Modified by and Electronically Signed by: RIGOBERTO BELLO DPT On: 12/30/2013 07:41 AM Source: [facility] Document Id: [id number] Micah Donaldson PSilvano. - 12/26/2013 12:00 AM CDT [id number] REVISION HISTORY January 12, 2014, at 2:01 pm - Modification to date of service. The document below is the most current and includes the modifications. 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 At this time, patient is reporting these symptoms were better, but did not do any of his exercises because he had sustained a fall. IMPRESSION/REPORT/PLAN Today we started with the patient with the body blade with flexion/extension rate at chin level for 1 minute. Then we did 5 repetitions moving from nose to middle of his chest with that body blade. Patient seemed to do well with this and then we did 30 seconds of internal rotation with elbow at 90 degrees and shoulder at neutral position for 30 seconds. Patient did feel muscle fatigue with these. We then did perform 2 sets of 10 repetitions of 4 pound biceps curls, 2 sets of 10 repetitions with 4 pounds of bent over rows and shoulder extension. He did well with these. Did have some fatigue towards the end of these. We then had patient perform ball passes with the rebounder with the unweighted ballx10 and then overhead passes x10 with an unweighted ball and then did have him perform 10 with the 1pound med ball with 1 handed ball passes. We then had him perform 10 repetitions of pushups with a plus on the wall. We will not be adding any new exercises at this time. Patient reports that he has not been good about working with exercises. He comes to town 2 times a week to therapy to make sure he gets those exercise in. Discussed that really our goal with therapy is to educate the patient on whathe needs to be doing at home to manage his symptoms. However, it is evident the patient does enjoy coming into therapy sessions. Plan is to continue. We will continue to work with patient in clinic. Micah Donaldson D.P.T./caron Electronically Signed By: MICAH DONALDSON DPT On: 12/29/2013 05:00 PM Modified by and Electronically Signed by: MICAH DONALDSON DPT On: 12/29/2013 05:00 PM Micah Donaldson D.P.T./clb Electronically Signed By: MICAH DONALDSON DPT On: 12/29/2013 05:00 PM Modified by and Electronically Signed by: MICAH DONALDSON DPT On: 12/29/2013 05:00 PM Co-Signed By: MICAH DONALDSON DPT On: 01/13/2014 01:39 PM Source: [facility] Document Id: [id number] Rigoberto Bello P.T. - 12/21/2013 12:00 AM CDT [id number] PHYSICAL THERAPY DAILY PROGRESS NOTE CHIEF COMPLAINT He was slightly achy after original exercises were given. He felt good with exercises today. He was progressed in the next session. He does report that he has not been compliant with his exercises on adaily basis, because he forgets. Overall feeling well. Tolerated the session well. Treatment in today's session: Began with bent-over shoulder retraction, progressed then to a 2-poundweight, 10 reps each, tolerated well. Shoulder extension, 2-pound weight, 10 reps, tolerated well. Scaption with 2-pound weights bilaterally, 10 reps, 2 sets. Internal rotation with green band 10 reps, 2 sets. Shoulder elevation/depression with 2-pound weights bilaterally, 10 reps. Patient was educated to continue with these exercises at home with a soup can. He was given a sheet for education and pictures. IMPRESSION/REPORT/PLAN Patient continues to be limited by pain in the shoulder, however so far exercises have only been giving him some achiness in the shoulder. Plan is to continue current plan of care. Patient was seen today for 35 minutes of therapeutic exercise. Jesús AguiarTPili/caron Electronically Signed By: RIGOBERTO BELLO DPRandy On: 12/23/2013 09:24 AM Modified by and Electronically Signed by: RIGOBERTO BELLO DPRandy On: 12/23/2013 09:24 AM Source: [facility] Document Id: [id number] Micah Donaldson P.T. - 12/19/2013 12:00 AM CDT [id number] PHYSICAL THERAPY PROGRESS NOTE CHIEF COMPLAINT/REASON FOR VISIT Patient presents to physical therapy today reporting that his shoulder is feeling the same, did havesome aches and did not get the Thera-Band exercises in as much as recommended. Reports she has been working on the scapular retraction. IMPRESSION/REPORT/PLAN We started with patient in side lying. We did perform scapular mobilizations to patient's right shoulder blade. He seemed to tolerate this well with no complaints of pain. We then did performed 15 repetitions of side-lying external rotation with no weight and then performed 10 repetitions of side-lying external rotation with 1 pound weight. He did get somewhat of an ache or fatigue of muscles with that. We were going to add this to home program but decided not to at this point. We then did have patient perform bent over a shoulder row then bent over shoulder extension. We did do 15 repetitions of each of these. He demonstrated these well with good technique. We did add these to his home program. We do not add the side-lying external rotation, but may add this at next session. Discussed the importance of continuing to work on stabilization and strengthening of that shoulder and discussing the cares of the shoulder. Patient, again discussed his appreciation of coming to therapy here, that he has been pleased with our facility. Micah Donaldson D.P.T./caron Electronically Signed By: MICAH DONALDSON DPT On: 12/26/2013 04:11 PM Source: [facility] Document Id: [id number] documented in this encounter Consult Notes Rigoberto Bello P.T. - 12/14/2013 12:00 AM CDT [id number] PHYSICAL THERAPY INITIAL EVALUATION REFERRAL SOURCE/REFERRING DIAGNOSIS Patient was referred by Dr. Norman for a right shoulder impingement. Total evaluation time was 50 minutes plus 15 minutes of treatment. CHIEF COMPLAINT/CURRENT MEDICAL HISTORY Patient reported that he originally injured his right shoulder when he was wrestling when he was in 9th grade. He has had discomfort on and off in the right shoulder ever since then. Especially has discomfort with throwing, arm wrestling, or winding the crank on his truck. He did go into the Emergency Department recently due to pain in the right shoulder, felt like an ice pick almost going through the shoulder. In the right shoulder at rest pain was 0 out of 10. Did get aggravated with session and testing and was aching by the end of the session. 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 His left little finger has numbness. Bilateral hands sometimes get tight, with fingers especially. 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 He does not get numbness or tingling buthe does sometimes get right shoulder pain with this. Patient's pain symptoms are intermittent overall. He did have an x-ray for the shoulder which showed some arthritis. MEDICATIONS/PAST MEDICAL HISTORY Patient has noted medical history of diabetes mellitus type 2, obesity, BPH with urinary obstructionand hyperlipidemia. Medications can be found on EMR. PHYSICAL EXAMINATION CARDIOPULMONARY SYSTEM: Blood pressure was 157/87. There is a regular heart rate of 52. INTEGUMENTARY SYSTEM: Was not impaired. MUSCULOSKELETAL SYSTEM: Range of motion: full right upper extremity flexion. About 160 degrees of abduction with discomfort at end range and he felt a pop in the shoulder which was nonpainful. Strength: Patient has 5 out of 5 strength of the right shoulder and with biceps and triceps. He did have somediscomfort with rotation internal and external. Patient also had discomfort going up into the power position. Special tests: Patient had a positive AC crossover test and a positive AC compression test.Positive biceps tension test and Branch's slap test. Negative Yeboah Tony and negative Neer's impingement. Palpation: Patient was tender to palpation over the long head biceps and insertion into the labrum as well as some tenderness over the supraspinatus. AC joint was also tender on the right side. NEUROMUSCULAR SYSTEM: Sensation was not tested. Oriented x3. TREATMENT IN TODAY'S SESSION: Patient began with internal rotation, shoulder extension and shoulder retraction the with green Thera-Band; patient tolerated well. We did trial external rotation but he got more achiness with this. Also performed shoulder retraction, standing at the wall for posture. Patient was given the exercises and handouts of this. IMPRESSION/REPORT/PLAN Patient is a 53-year-old male referred by Dr. Norman for possible right shoulder impingement. Patient presented in evaluation with pain in the right shoulder, impaired functional movements such as going into thrower position, and positive special tests. He will benefit from skilled outpatient physicaltherapy at this time in order to address these impairments and increase overall pain-free functionalmobility of the right upper extremity. Physical therapy prognosis is fair at this time due to chronicity of this issue. However, patient is motivated to feel better. PATIENT GOALS FOR THERAPY Decreased pain in the shoulder. PHYSICAL THERAPY GOALS SHORT TERM GOAL: 1. Patient will report being independent and be able to demonstrate all exercises safely and appropriately at the next session, within 1 week. 2. Patient will have full pain-free right upper extremity active range of motion, within 2 weeks. MAINTENANCE REPAIRMAN GOAL: 1. Patient will report no pain sleeping throughout the night in the right shoulder, within 4 weeks. 2. Patient will have full pain-free range of motion of the right upper extremity and 5 out of 5 strength, within 4 weeks. 3. Patient will report being able to go up into position in which he will hold on to his motorcycle handlebars without any pain or discomfort in the right shoulder, within 4 weeks. 4. Patient will be independent in a progressed home exercise program for functional strengthening ofthe upper extremity, within 4 weeks. PLAN OF CARE Patient will be seen in outpatient physical therapy for 1 to 2 sessions a week for 30 minutes sessions. He will be progressed with therapeutic exercises, manual therapies and possible modalities in order to meet physical therapy goals. He will be progressed in a home exercise program. Patient will be d ischarged upon completion of these goals or when physical therapy is no longer indicated. Patient did consent to evaluation and plan of care. Patient will be referred back to referring provider if necessary. PATIENT EDUCATION Ready to learn. No apparent learning barriers were identified. Learning preferences include listening. Explained diagnosis and treatment plan. Patient/Child/Caregiver expressed understanding of the content. Rigoberto Bello D.P.T./caron cc: John Norman M.D. [address] [place] [phone] Electronically Signed By: RIGOBERTO BELLO DPRandy On: 12/19/2013 01:26 PM Modified by and Electronically Signed by: RIGOBERTO BELLO DPT On: 12/19/2013 01:26 PM Co-Signed By: JOHN NORMAN MD On: 12/19/2013 02:31 PM Source: [facility] Document Id: [id number] documented in this encounter Plan of Treatment Not on filedocumented as of this encounter Visit Diagnoses Not on filedocumented in this encounter Additional Health Concerns Assessment Noted Time PHQ-9 Depression Total Score: 18 02/14/2013 9:53 AM CD T documented as of this encounter
--- OUTSIDE RECORDS SUMMARY | 2022-07-29 10:54 | XMS_ITS | Encounter Summary ---
:1960 Author Organization [facility] Address [address] [place] [address] Care Team Providers Name Role Phone Unavailable Primary Care Provider Unavailable Encounter Details Date Type Department Care Team Description 08/17/2014 Hospital Encounter HX [facility] [place] Cintia Aguirre M.D. [address] [place] [phone] (Wo rk) Social History Tobacco Use Types Packs/Day Years Used Date Smoking Tobacco: Never Assessed Sex Assigned at Date Recorded Not on file documented as of this encounter Last Filed Vital Signs Vital Sign Reading Time Taken Comments Blood Pressure 148/81 08/17/2014 2:06 PM LABORATORY TECHNOLOGY TEACHER Pulse 53 08/17/2014 2:06 PM LABORATORY TECHNOLOGY TEACHER Temperature - - Respiratory Rate - - Oxygen Saturation - - Inhaled Oxygen Concentration - - Weight 160 kg (352 lb 8.3 oz) 08/17/2014 2:06 PM LABORATORY TECHNOLOGY TEACHER Height 185 cm (6' 0.84) 08/17/2014 2:06 PM LABORATORY TECHNOLOGY TEACHER Body Mass Index 46.72 08/17/2014 2:06 PM LABORATORY TECHNOLOGY TEACHER documented in this encounter Progress Notes Cintia Cobb M.D. - 08/17/2014 2:02 PM CST [id number] CHIEF COMPLAINT/REASON FOR VISIT Follow up pneumonia and surgical clearance. HISTORY OF PRESENT ILLNESS Ed is a 54-year-old male who we saw 1 week ago for a preanesthesia medical exam, where he was found to have pneumonia. At that point we also made changes to his medications including upping his Lasix, upping his Lantus and obviously treating the pneumonia. He states that he is feeling much better. Chills are much improved. He never really did feel short of breath, but I noted him to be moreout of breath than usual and that has improved. He also notes that his legs are down a lot and he almost feels like he is clunking around in his boots now. In regards to his blood sugars, they are alsoimproving. The last 3 mornings they have been 75, 90 and 114. In the evening they have been around the 140s. Patient is having no side effects with these medication changes. He finished out his course of Zithromax. Additionally patient did have followup with the surgeon since I last saw him, and the surgeon Dr. Morris was concerned that patient may not be quite ready for surgery with his multiple comorbidities not under ideal control. Therefore, this surgery is on hold at this point, and he is waiting for the police records clerk to give him a call back. MEDICATIONS Reconciled, no changes. ALLERGIES Cipro. Influenza. SYSTEMS REVIEW As per HPI. VITAL SIGNS Temperature 36.3, pulse is 53 beats per minute, blood pressure is 148/81. Height is 185 cm, weight is 159.9 kg. BMI is 46.7. Last week his weight was 167 kg. PHYSICAL EXAMINATION GENERAL: Patient is alert and oriented. He is in no acute distress. He is no longer dyspneic. CARDIOVASCULAR: Bradycardia. S1 and S2. No murmurs, rubs, or gallops. LUNGS: Clear to auscultation with good air movement. EXTREMITIES: The best I have ever seen them. Normally I cannot zip up his boots due to the edema andtoday the boots are loose. I would say he has about 2+ edema bilaterally. DIAGNOSTICS Chest x-ray was obtained and shows partial resolution of the left lower lobe infiltrate and stable pulmonary venous hypertension. IMPRESSION/REPORT/PLAN 1. Pneumonia. Patient clinically is doing much better. His lungs are clear. 1. Chest x-ray is also showing improvement and I do think this problem has resolved. 2. Pre anesthesia medical examination. Clinically patient seems to be doing better on all fronts today. He is down about 7 kg since we saw him 1 week ago. His ankle swelling has improved dramatically. Blood pressure is still a little bit elevated but the best that it has been in awhile. Blood sugars are also starting to come down with the changes we have made to his Lantus. Patient continues to have risk factors for surgery but unfortunately I really feel that as long as his weight is an issue for him these other problems would not be under optimal control. 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 I am going to send a message to Dr. Morris and Dr. Saez to update them on patient's condition today. Ready to learn. No apparent learning barriers were identified. Learning preferences include listening. Explained diagnosis and treatment plan. Patient/Child/Caregiver expressed understanding of the content. Cintia Song M.D./caron Electronically Signed By: CINTIA KILGORE MD On: 08/24/2014 06:32 PM Source: [facility] MHSDOLBEYNONRADSYS Document Id: [id number] RATORY TECHNOLOGY TEACHER documented in this encounter Miscellaneous Notes Miscellaneous - Cintia Cobb M.D. - 08/17/2014 2:36 PM LABORATORY TECHNOLOGY TEACHER Ambulatory Patient Summary [address] [id number] Visit Information Name: LAZ LUNA [facility] Number: [id number] Current Date: 08/17/2014 14:36:05 Physicians Attending Provider: CINTIA KILGORE MD Primary [...] the Following Medications: Medication list as of 08-17-14 14:36 Attention: If you have any medications at [...] Electronically Signed By: CINTIA KILGORE MD Signed On:17-AUG-2014 14:35:44 Your Allergies & Intolerances Substance Reaction Symptoms [...] appointment detail needed. Your Goals/Additional instructions: Source: [facility] POWERCHART Document Id: [id number] RATORY TECHNOLOGY TEACHER Miscellaneous - Cintia Cobb M.D. - 08/17/2014 2:36 PM LABORATORY TECHNOLOGY TEACHER Ambulatory Discharge Medication List [address] [id number] Visit Information Name: LAZ LUNA [facility] Number: [id number] Visit Date: 08/17/2014 14:36:03 Attending Provider: CINTIA KILGORE MD Primary Care [...] the Following Medications: Medication list as of 08-17-14 14:36 Attention: If you have any medications at [...] Electronically Signed By: CINTIA KILGORE MD Signed On:17-AUG-2014 14:35:44 Additional Information: Source: [facility] POWERCHART Document Id: [id number] RATORY TECHNOLOGY TEACHER Miscellaneous - Anne Marie Tuttle L.P.N. - 08/17/2014 2:06 PM CST Adult Retail Business Analyst Intake/History Adult Retail Business Analyst Intake/History Entered On: 08/17/2014 14:08 LABORATORY TECHNOLOGY TEACHER Performed On: 08/17/2014 14:06 LABORATORY TECHNOLOGY TEACHER by ANNE MARIE TUTTLE LPN, RT Intake Chief Complaint : f/u Temperature Core : 36.3 DegC(Converted to: 97.3 DegF) (LOW) Peripheral Pulse Rate : 53 /min (LOW) Systolic Blood Pressure : 148 mmHg (HI) Diastolic Blood Pressure : 81 mmHg NIBP Mean : 103 mmHg BP Location : Left upper extremity Blood Pressure Cuff Size : Large Height : 185 cm(Converted to: 6 ft 1 inch(es), 73 inch(es)) Actual Weight : 159.9 kg(Converted to: 352 lb 8 oz) Weight Source : Standing scale Dosing Weight Clinic : 159.9 kg Clinic BSA : 2.87 Body Mass Index : 46.72 kg/m2 ANNE MARIE TUTTLE LPN, RT - 08/17/2014 14:06 LABORATORY TECHNOLOGY TEACHER General Info Information Given By : Patient Preferred Communication Mode : Verbal Languages : Northern Irish Is Patient Female and 13-50 no hysterectomy : No ANNE MARIE TUTTLE LPN, RT - 08/17/2014 14:06 LABORATORY TECHNOLOGY TEACHER Subjective Pain Symptoms : No ANNE MARIE TUTTLE LPN, RT - 08/17/2014 14:06 LABORATORY TECHNOLOGY TEACHER Dependent Habits Tobacco Use/Currently Using : No Smoking Status : Never smoker ANNE MARIE TUTTLE LPN, RT - 08/17/2014 14:06 LABORATORY TECHNOLOGY TEACHER Tobacco Use Grid Last Use : never ANNE MARIE TUTTLE LPN, RT - 08/17/2014 14:06 LABORATORY TECHNOLOGY TEACHER Caffeine Use Grid Caffeine Use : Current Type : Coffee, Soft drinks Frequency : Weekly Amount : soda- weekly; coffee- 1x/week ANNE MARIE TUTTLE LPN, RT - 08/17/2014 14:06 LABORATORY TECHNOLOGY TEACHER Recreational Drug Use Grid Drug Use : None ANNE MARIE TUTTLE LPN, RT - 08/17/2014 14:06 LABORATORY TECHNOLOGY TEACHER ID Screen Drug Resistant Organism : No Travel Within Last 21 Days : No ANNE MARIE TUTLTE LPN, RT - 08/17/2014 14:06 LABORATORY TECHNOLOGY TEACHER Source: [facility] Bex Document Id: [id number] LABORATORY TECHNOLOGY TEACHER!41 RATORY TECHNOLOGY TEACHER documented in this encounter Plan of Treatment Not on filedocumented as of this encounter Visit Diagnoses Not on filedocumented in this encounter Additional Health Concerns Assessment Noted Time PHQ-9 Depression Total Score: 18 02/14/2013 9:53 AM CD T documented as of this encounter
--- OUTSIDE RECORDS SUMMARY | 2022-07-29 10:54 | XMS_ITS | Encounter Summary ---
:1960 Author Organization [facility] Address [address] [place] [address] Care Team Providers Name Role Phone Unavailable Primary Care Provider Unavailable Encounter Details Date Type Department Care Team Description 12/06/2013 Hospital Encounter HX NO MAPPING Rocio Norman M.D. [address] [place] [address] [phone] (Wo rk) Social History Tobacco Use Types Packs/Day Years Used Date Smoking Tobacco: Never Assessed Sex Assigned at Date Recorded Not on file documented as of this encounter Last Filed Vital Signs Vital Sign Reading Time Taken Comments Blood Pressure 130/84 12/06/2013 3:07 PM CDT Pulse 47 12/06/2013 3:07 PM CDT Temperature - - Respiratory Rate 16 12/06/2013 3:07 PM CDT Oxygen Saturation - - Inhaled Oxygen Concentration - - Weight - - Height - - Body Mass Index - - documented in this encounter Consult Notes John Norman M.D. - 12/06/2013 2:58 PM CDT [id number] HISTORY OF PRESENT ILLNESS Ed is a 53-year-old man who is here in regards to 2 main issues. First in regards to his right shoulder. He had feigned injury to his right shoulder back when he was a freshman in high school wrestling, and subsequently has had problems with this shoulder over the intervening time period. Now he has noticed difficulties with trying to throw, trying to use that arm, and at times is sleeping when he experiences pain. Most of the pain is to the anterior and lateral aspect of his shoulder, when he triesto do any activities with it. He does not notice specific weakness. The other issue that he mentionstoday is in regards to his left elbow. He has had multiple hyperextension injuries to this elbow, and it has remained painful for him. He has difficulties gaining full extension and flexion. It is reasonably normal, but has significant pain with both of these. PHYSICAL EXAMINATION Examination of his right shoulder range of motion, we were able to forward flex to 120 degrees. Abduction is approximately 80 degrees. External rotation is 60 degrees. Strength testing, external and internal, and supraspinatus testing are all 5/5. He does have positive impingement signs and significant tenderness overlying the biceps tendon. Examination of his left elbow, he is able to extend to approximately 30-40 degrees short of full extension, and flexion is to 110 degrees. RADIOGRAPHS X-rays of his right shoulder obtained today demonstrate glenohumeral degenerative changes, as well as AC joint degenerative changes. IMPRESSION/REPORT/PLAN Ed is a 53-year-old man who has problems with what appears to be rotator cuff impingement. Could also be a slap tear. My suggestion is to try a physical therapy program, see if he notices substantial improvement. If he does not, consider obtaining an MRI arthrogram of his shoulder. We will see him back in approximately 6 weeks, to see how he is clinically doing in regards to this. In regards to his left elbow, it may be reasonable to consider arthroscopy to his elbow at some point in the future, to try and remove loose pieces and spurs, to see if that can help gain range of motion, or at least diminish his pain at the ends of his motion. Patient's visit today was greater than 25 minutes long, with more than 50% in counseling regards to treatment options for his right shoulder and left elbow pain. John Norman M.D./caron Electronically Signed By: JOHN NORMAN MD On: 12/08/2013 10:00 AM Source: [facility] MHSDOLBEYNONRADSYS Document Id: [id number] documented in this encounter Miscellaneous Notes Miscellaneous - John Norman M.D. - 12/06/2013 4:37 PM CDT Ambulatory Patient Summary [facility] [address] [facility] [place] [id number] Visit Information Name: NOEMÍ LUNA [facility] Number: [id number] Current Date: 12/06/2013 16:37:42 Physicians Attending Provider: JOHN NORMAN MD Primary Care Provider: KEVIN KILGORE MD [...] Plus) 2 Tablet(s), Oral, once a day hydrochlorothiazide (hydrochlorothiazide 25 mg oral tablet) 1 [...] metoprolol (metoprolol tartrate 100 mg oral tablet) 1 Tablet(s), Oral, two [...] the Following Medications: Medication list as of 12-06-13 16:37 Attention: If you have any medications at [...] Upcoming Appointments Date Time Location Reason Provider 12/07/2013 16:30 [facility] Family Med BP issues Duncan MENDEZ, Kevin Piper 12/14/2013 17:15 [facility] PT/OT rt shoulder impingment Ade Gandhi Attention: Contact your local Clinic if further appointment detail needed. Your Goals/Additional instructions: Source: [facility] POWERCHART Document Id: [id number] Miscellaneous - John Norman M.D. - 12/06/2013 4:37 PM CDT Ambulatory Discharge Medication List [address] [id number] Visit Information Name: NOEMÍ LUNA [facility] Number: [id number] Visit Date: 12/06/2013 16:37:40 Attending Provider: JOHN NORMAN MD Primary Care Provider: KEVIN KILGORE MD CARLYLE, ED has been given the following list of [...] Plus) 2 Tablet(s), Oral, once a day hydrochlorothiazide (hydrochlorothiazide 25 mg oral tablet) 1 [...] metoprolol (metoprolol tartrate 100 mg oral tablet) 1 Tablet(s), Oral, two [...] the Following Medications: Medication list as of 12-06-13 16:37 Attention: If you have any medications at home that are not on this list, DO NOT take them until youcontact your provider for clarification. Give a copy of your medication list to your primary care provider. Update your medication list any time medications or doses are changed and carry your medication list at all times in case of emergency. Additional Information: Source: [facility] POWERCHART Document Id: [id number] Miscellaneous - Lacie Donaldson R.N. - 12/06/2013 3:07 PM CDT Adult Rubber Tubing Backer Intake/History Adult Rubber Tubing Backer Intake/History Entered On: 12/06/2013 15:10 CDT Performed On: 12/06/2013 15:07 CDT by LACIE DONALDSON wire machine cutter Chief Complaint : right shoulder pain that comes and goes for years, feels good today Temperature Core : 36.8 DegC(Converted to: 98.2 DegF) Peripheral Pulse Rate : 47 /min (<LLOW) Respiratory Rate : 16 /min Heart Rhythm : Regular Systolic Blood Pressure : 130 mmHg Diastolic Blood Pressure : 84 mmHg NIBP Mean : 99 mmHg BP Location : Left upper extremity Blood Pressure Cuff Size : Large SpO2 : 95 % LACIE DONALDSON RN - 12/06/2013 15:07 CDT General Info Information Given By : Patient Preferred Communication Mode : Verbal Languages : Indian LACIE DONALDSON RN - 12/06/2013 15:07 CDT Subjective Pain Symptoms : Yes LACIE DONALDSON RN - 12/06/2013 15:07 CDT Pain Pain Assessment Grid Pain 1 Location : Shoulder Laterality : Right LACIE DONALDSON RN - 12/06/2013 15:07 CDT Dependent Habits Tobacco Use/Currently Using : No Smoking Status : Never smoker LACIE DONALDSON RN - 12/06/2013 15:07 CDT Tobacco Use Grid Last Use : never LACIE DONALDSON RN - 12/06/2013 15:07 CDT Caffeine Use Grid Caffeine Use : Current Type : Coffee, Soft drinks Frequency : Weekly Amount : soda- weekly; coffee- 1x/week LACIE DONALDSON RN - 12/06/2013 15:07 CDT Recreational Drug Use Grid Drug Use : None LACIE DONALDSON RN - 12/06/2013 15:07 CDT Source: [facility] PushPage Document Id: [id number] CDT!39 documented in this encounter Plan of Treatment Not on filedocumented as of this encounter Visit Diagnoses Not on filedocumented in this encounter Additional Health Concerns Assessment Noted Time PHQ-9 Depression Total Score: 18 02/14/2013 9:53 AM CD T documented as of this encounter
--- OUTSIDE RECORDS SUMMARY | 2022-07-29 10:54 | XMS_ITS | Encounter Summary ---
:1960 Author Organization [facility] Address [address] [place] [address] Care Team Providers Name Role Phone Unavailable Primary Care Provider Unavailable Encounter Details Date Type Department Care Team Description 07/13/2014 Hospital Encounter HX [facility] CARDIOLOG Liam Gutierrez M.D. [address] [place] [address] (Wo rk) Social History Tobacco Use Types Packs/Day Years Used Date Smoking Tobacco: Never Assessed Sex Assigned at Date Recorded Not on file documented as of this encounter Last Filed Vital Signs Vital Sign Reading Time Taken Comments Blood Pressure 156/78 07/13/2014 9:15 AM CHIEF OPERATOR SYNTHESIS Pulse 46 07/13/2014 9:15 AM CHIEF OPERATOR SYNTHESIS Temperature - - Respiratory Rate - - Oxygen Saturation - - Inhaled Oxygen Concentration - - Weight - - Height 185 cm (6' 0.84) 07/13/2014 9:15 AM CHIEF OPERATOR SYNTHESIS Body Mass Index - - documented in this encounter Consult Notes Amol Gutierrez M.D. - 07/13/2014 9:08 AM CST [facility] REFERRAL SOURCE Referral is from Dr. Duncan Copeland. CHIEF COMPLAINT/REASON FOR VISIT Atrial flutter. HISTORY OF PRESENT ILLNESS Mr. Luna is a 54-year-old male with recently diagnosed atrial flutter. An echocardiogram in December 2013 found this. He also had dilated pulmonary vasculature suggestive of pulmonary hypertension. Tricuspid velocities were not able to be obtained so no quantification could be done. He has history of diabetes mellitus, morbid obesity, and chronic shoulder pain. He denies any dyspnea on exertion, chest pressure, heart racing, palpitations, or other anginal symptoms. His exertion isintermittent. 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 He is being considered for bariatric surgery. He is scheduled to meet with [facility] again in August. PAST MEDICAL/SURGICAL HISTORY 1. Morbid obesity. 2. Atrial flutter. 3. Hypertension. 4. Diabetes mellitus type 2. 5. Hyperlipidemia. 6. Rectal dysfunction. 7. Prostatic hypertrophy without obstruction. 8. History of kidney stone. ALLERGIES Ciprofloxacin. Reaction not known. MEDICATIONS 1. Amlodipine 10 mg by mouth once daily. 2. Allopurinol 300 mg by mouth 1 tablet daily. 3. Cialis 20 mg tablet 1 by mouth as needed. 4. Hydrochlorothiazide 25 mg tablet 1 by mouth daily. 5. Lantus 100 units/mL 70 units subcutaneously daily. 6. Lasix 20 mg by mouth daily. 7. Lisinopril 40 mg tablet 1 by mouth daily. 8. Metformin 1000 mg tab 1 by mouth 2 times a day. 9. Simvastatin 40 mg tablet 1 by mouth daily. SOCIAL HISTORY Nonsmoker. FAMILY HISTORY His father has a permanent pacemaker but no history of coronary artery disease. Otherwise family history is noncontributory. REVIEW OF SYSTEMS Denies paroxysmal nocturnal dyspnea or orthopnea. No chest pressure or shortness of breath with exertion. No palpitations, heart racing, or lightheadedness. No symptoms of stroke or TIA. Denies snoring. PHYSICAL EXAMINATION GENERAL: Pleasant gentleman, in no acute distress. VITAL SIGNS: Blood pressure 156/78. Pulse 46 and regular. Respiratory rate is 18. Height 185 cm. Weight 160 kg. PSYCHIATRIC: Appropriate mood and affect. NEUROLOGIC: Cranial nerves II to XII are grossly intact. Peripheral sensation grossly intact. CHEST: Clear to auscultation and percussion bilaterally. CARDIAC: S1, S2 with distant heart sounds. No murmur rub or gallop appreciated. Rate is slow. PMI isfocal and nondisplaced. VESSELS: Carotids are 4 without bruit. Jugular venous pressure normal. Radials are 4s. Popliteals are 3's. EXTREMITIES: 2+ edema bilaterally. ABDOMEN: Obese, nontender, organs not palpable. Bowel sounds present and normal. IMPRESSION/REPORT/PLAN 1. Atrial flutter. 2. Hypertension. 3. Morbid obesity. 4. Diabetes mellitus type 2. At present I do not have an electrocardiogram, a Holter monitor or any other recording of Mr. Luna'srhythm. If he is still in atrial flutter or if he has paroxysmal atrial fibrillation as well, then anticoagulation would be appropriate. His CHADS 2 score is at least a 2 earning points for diabetes jena litus and hypertension. He does not have any symptomatic vascular disease to rank him higher than this. Given his lifestyle and sharmaine schedule a novel agent would be appropriate. His heart rate was slow on the recent echocardiogram. Pulmonary pressures were high. Sleep apnea could be considered, and weight loss would be helpful. Bariatric surgery seems reasonable although he does understand that he needs to make many lifestyle changes to ensure its efficacy. I will review the Holter monitoring, electrocardiogram when available. Further evaluation may be required depending on the results. I will also relay the results to the [facility]. Margin code on this is a P5 and I will do the billing. Amol Gutierrez M.D./caron Electronically Signed By: AMOL GUTIERREZ MD On: 07/13/2014 01:28 PM Modified by and Electronically Signed by: AMOL GUTIERREZ MD On: 07/13/2014 01:28 PM Source: [facility] MHSDOLBEYNONRADSYS Document Id: [id number] F OPERATOR SYNTHESIS documented in this encounter Miscellaneous Notes Miscellaneous - Mehreen Washington, RPiliN. - 07/13/2014 9:15 AM CST Adult Firesetter Intake/History Document Has Been Updated Adult Firesetter Intake/History Entered On: 07/13/2014 9:17 CHIEF OPERATOR SYNTHESIS Performed On: 07/13/2014 9:15 CHIEF OPERATOR SYNTHESIS by MEHREEN WASHINGTON regrinder operator Chief Complaint : Lowewr extremity edema and HTN Peripheral Pulse Rate : 46 /min (<LLOW) Systolic Blood Pressure : 156 mmHg (HI) Diastolic Blood Pressure : 78 mmHg NIBP Mean : 104 mmHg Height : 185 cm(Converted to: 6 ft 1 inch(es), 73 inch(es)) MEHREEN WASHINGTON RN - 07/13/2014 9:15 CHIEF OPERATOR SYNTHESIS General Info Information Given By : Patient Languages : Slovak Is Patient Female and 13-50 no hysterectomy : No MEHREEN WASHINGTON RN - 07/13/2014 9:15 CHIEF OPERATOR SYNTHESIS Subjective Pain Symptoms : No Cardiovascular Symptoms : Edema MEHREEN WASHINGTON RN - 07/13/2014 9:15 CHIEF OPERATOR SYNTHESIS Dependent Habits Tobacco Use/Currently Using : No Smoking Status : Never smoker MEHREEN WASHINGTON RN - 07/13/2014 9:15 CHIEF OPERATOR SYNTHESIS Tobacco Use Grid Last Use : never MEHREEN WASHINGTON RN - 07/13/2014 9:15 CHIEF OPERATOR SYNTHESIS Alcohol Use : No MEHREEN WASHINGTON RN - 07/13/2014 9:15 CHIEF OPERATOR SYNTHESIS Caffeine Use Grid Caffeine Use : Current Type : Coffee, Soft drinks Frequency : Weekly Amount : soda- weekly; coffee- 1x/week MEHREEN WASHINGTON RN - 07/13/2014 9:15 CHIEF OPERATOR SYNTHESIS Recreational Drug Use Grid Drug Use : None MEHREEN WASHINGTON RN - 07/13/2014 9:15 CHIEF OPERATOR SYNTHESIS Allergy (As Of: 07/13/2014 09:17:25 CHIEF OPERATOR SYNTHESIS) Allergies (Active) Cipro Estimated Onset Date: Unspecified ; Created By: STEVE ANDREA CNP; Reaction Status: Active ;Category: Drug ; Substance: Cipro ; Type: Allergy ; Updated By: STEVE ANDREA CNP; Reviewed Date: 03/21/2014 15:29 CDT Influenza Virus Vaccine Estimated Onset Date: Unspecified ; Reactions: diarrhea ; Created By: STEVE ANDREA CNP; Reaction Status: Active ; Category: Drug ; Substance: Influenza Virus Vaccine ; Type: Intolerance ; Updated By: STEVE ANDREA CNP; Reviewed Date: 03/21/2014 15:29 CDT ID Screen Drug Resistant Organism : No Travel Within Last 21 Days : MEHREEN Engle RN - 07/13/2014 9:15 CHIEF OPERATOR SYNTHESIS [facility] Document Id: [id number] CHIEF OPERATOR SYNTHESIS!34 F OPERATOR SYNTHESIS documented in this encounter Plan of Treatment Not on filedocumented as of this encounter Visit Diagnoses Not on filedocumented in this encounter Additional Health Concerns Assessment Noted Time PHQ-9 Depression Total Score: 18 02/14/2013 9:53 AM CD T documented as of this encounter
--- OUTSIDE RECORDS SUMMARY | 2022-07-29 10:54 | XMS_ITS | Encounter Summary ---
:1960 Author Organization [facility] Address [address] [place] [address] Care Team Providers Name Role Phone Unavailable Primary Care Provider Unavailable Encounter Details Date Type Department Care Team Description 02/07/2014 Hospital Encounter HX NO MAPPING Suzi Hill PPiliA.Shea C. Social History Tobacco Use Types Packs/Day Years Used Date Smoking Tobacco: Never Assessed Sex Assigned at Date Recorded Not on file documented as of this encounter Last Filed Vital Signs Vital Sign Reading Time Taken Comments Blood Pressure 130/76 02/07/2014 3:09 PM CDT Pulse 50 02/07/2014 3:09 PM CDT Temperature - - Respiratory Rate 20 02/07/2014 3:09 PM CDT Oxygen Saturation - - Inhaled Oxygen Concentration - - Weight - - Height - - Body Mass Index - - documented in this encounter Consult Notes Suzi Hill - 02/07/2014 3:05 PM CDT [id number] Mr. Luna is a pleasant 53-year-old gentleman who is here today for followup of his right shoulder. He is having pain in the lateral anterior portion of his shoulder. This has been ongoing for quite some time. It stems from old wrestling injury. He saw Dr. Norman recently. He has worked with physical therapy. I spoke with his therapist and she did have some concerns about compliance but either way he has seen them a few times. He has not had a corticosteroid injection. He is still having pain and is here today to discuss the situation. PHYSICAL EXAMINATION He does have good motion both actively and passively. Fentress's test is equivocal. He does have painwhen palpating about the anterior and lateral aspects of the shoulder. He has positive impingement signs but overall good strength in all reis. IMPRESSION/REPORT/PLAN Ms. Luna is a 53-year-old gentleman who has some chronic right shoulder pain. I still think the physical therapy would likely be beneficial for him but needs to do it a bit more consistently. However because of the severity and duration of his symptoms, I did offer him a corticosteroid injection versus an MRI arthrogram of the shoulder to help further diagnosis. He was interested in a MRI arthrogram which I felt was entirely reasonable to help ensure that we are pursuing the most appropriate treatment plan possible, but even with a labral tear or things of that nature, I tried make it clear that therapy likely is going to be in his future, but of course, if he has significant biceps tendinitis we may have to consider biceps tenolysis or something of that nature. Either way, he will follow up withDr. Norman once the MRI arthrogram has been obtained to discuss the results as well as what treatment options are available to him, but I did make it clear that we will try and pursue conservative measu res if at all possible. The patient was discussed with Dr. Norman and he is aware of this course of action. Greater than 15 minutes was spent on the patient today, of which greater than half that time was spent in direct [id number] counseling and educating the patient about his condition as well as treatment options that are available to him. Suzi Hill P.A.-C./caron Electronically Signed By: SUZI HILL PA-C On: 02/14/2014 02:48 PM Source: [facility] MHSDOLBEYNONRADSYS Document Id: [id number] documented in this encounter Miscellaneous Notes Miscellaneous - Suzi Hill - 02/07/2014 3:31 PM CDT Ambulatory Patient Summary [place] [facility] [address] [id number] Visit Information Name: LAZ LUNA [facility] Number: [id number] Current Date: 02/07/2014 15:31:20 Physicians Attending Provider: SUZI HILL PA-C Primary Care Provider: KEVIN KILGORE MD CARLYLE, LAZ has been given the following list of [...] tablet) 2 Tablet(s), Oral, once a day hydrochlorothiazide [...] the Following Medications: Medication list as of 02-07-14 15:31 Attention: If you have any medications at home that are not on this list, DO NOT take them until youcontact your provider for clarification. Give a copy of your medication list to your primary care provider. Update your medication list any time medications or doses are changed and carry your medication list at all times in case of emergency. Electronically Signed By: SUZI HILL PA-C Signed On:07-FEB-2014 15:31:09 Your Allergies & Intolerances Substance Reaction Symptoms [...] Upcoming Appointments Date Time Location Reason Provider 03/21/2014 15:30 [facility] Follow up MRI on right shoulder Ester MENDEZ, John Lindsay Attention: Contact your local Clinic if further appointment detail needed. Your Goals/Additional instructions: Source: [facility] POWERCHART Document Id: [id number] Miscellaneous - Suzi Hill - 02/07/2014 3:31 PM CDT Ambulatory Discharge Medication List [facility] [address] [place], [place] [phone] Visit Information Name: LAZ LUNA [facility] Number: [id number] Visit Date: 02/07/2014 15:31:18 Attending Provider: SUZI HILL PA-C Primary Care Provider: KEVIN KILGORE MD CARLYLELAZ has been given the [...] tablet) 2 Tablet(s), Oral, once a day hydrochlorothiazide [...] the Following Medications: Medication list as of 02-07-14 15:31 Attention: If you have any medications at home that are not on this list, DO NOT take them until youcontact your provider for clarification. Give a copy of your medication list to your primary care provider. Update your medication list any time medications or doses are changed and carry your medication list at all times in case of emergency. Electronically Signed By: SUZI HILL PA-C Signed On:07-FEB-2014 15:31:09 Additional Information: Source: [facility] POWERCHART Document Id: [id number] Miscellaneous - Lacie Donaldson R.N. - 02/07/2014 3:09 PM CDT Adult Horses Or Mules Teamster Intake/History Adult Horses Or Mules Teamster Intake/History Entered On: 02/07/2014 15:13 CDT Performed On: 02/07/2014 15:09 CDT by LACIE DONALDSON hydraulic governor assembler Chief Complaint : f/u right shoulder pain, comes and goes with activity Temperature Core : 36.8 DegC(Converted to: 98.2 DegF) Peripheral Pulse Rate : 50 /min (LOW) Respiratory Rate : 20 /min Heart Rhythm : Regular Systolic Blood Pressure : 130 mmHg Diastolic Blood Pressure : 76 mmHg NIBP Mean : 94 mmHg BP Location : Right upper extremity Blood Pressure Cuff Size : Large SpO2 : 93 % (LOW) LACIE DONALDSON RN - 02/07/2014 15:09 CDT General Info Information Given By : Patient Preferred Communication Mode : Verbal Languages : Lithuanian LACIE DONALDSON RN - 02/07/2014 15:09 CDT Subjective Pain Symptoms : Yes LACIE DONALDSON RN - 02/07/2014 15:09 CDT Pain Pain Assessment Grid Pain 1 Location : Shoulder Laterality : Right LACIE DONALDSON RN - 02/07/2014 15:09 CDT Dependent Habits Tobacco Use/Currently Using : No Smoking Status : Never smoker LACIE DONALDSON RN - 02/07/2014 15:09 CDT Tobacco Use Grid Last Use : never LACIE DONALDSON RN - 02/07/2014 15:09 CDT Caffeine Use Grid Caffeine Use : Current Type : Coffee, Soft drinks Frequency : Weekly Amount : soda- weekly; coffee- 1x/week LACIE DONALDSON RN - 02/07/2014 15:09 CDT Recreational Drug Use Grid Drug Use : None LACIE DONALDSON RN - 02/07/2014 15:09 CDT Source: [employer] Document Id: [id number] CDT!39 documented in this encounter Plan of Treatment Not on filedocumented as of this encounter Visit Diagnoses Not on filedocumented in this encounter Additional Health Concerns Assessment Noted Time PHQ-9 Depression Total Score: 18 02/14/2013 9:53 AM CD T documented as of this encounter
--- OUTSIDE RECORDS SUMMARY | 2022-07-29 10:54 | XMS_ITS | Encounter Summary ---
:1960 Author Organization [facility] Address [address] [place] [address] Care Team Providers Name Role Phone Unavailable Primary Care Provider Unavailable Encounter Details Date Type Department Care Team Description 03/21/2014 Hospital Encounter HX NO MAPPING Rocio Norman M.D. [address] [place] [address] [phone] (Wo rk) Social History Tobacco Use Types Packs/Day Years Used Date Smoking Tobacco: Never Assessed Sex Assigned at Date Recorded Not on file documented as of this encounter Last Filed Vital Signs Vital Sign Reading Time Taken Comments Blood Pressure 130/80 03/21/2014 3:31 PM CDT Pulse 49 03/21/2014 3:31 PM CDT Temperature - - Respiratory Rate 20 03/21/2014 3:31 PM CDT Oxygen Saturation - - Inhaled Oxygen Concentration - - Weight - - Height 185 cm (6' 0.84) 03/21/2014 3:31 PM CDT Body Mass Index - - documented in this encounter Consult Notes John Norman M.D. - 03/21/2014 3:25 PM CDT [id number] HISTORY OF PRESENT ILLNESS Ed is a 53-year-old man who is here in regard to his right shoulder. He had an injury to his right shoulder many years ago and subsequently has had problems with persistent pain. At this point in time it is doing reasonably well with the help of physical therapy. We had sent him for an MRI arthrogram and he is here today to discuss the results of this. 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 Otherwise, there is some mild glenohumeral joint arthritis. No rotator cuff tear is seen and no labral pathology is seen. IMPRESSION/REPORT/PLAN Ed is a 53-year-old man who is dealing with some right shoulder pain that is now substantially better. My suggestion is if things get worse once again, we would have him return to consider the possibility of a cortisone injection, and if that was not particularly helpful, do an arthroscopy, cervical decompression and distal clavicle resection. However, right now he is doing well and we will hold off any of this type of intervention. Patient's visit today was greater than 15 minutes long, with more than 50% of it counseling in regard to treatment options for his right shoulder pain. John Norman M.D./caron Electronically Signed By: JOHN NORMAN MD On: 03/22/2014 07:43 AM Source: [facility] MHSDOLBEYNONRADSYS Document Id: [id number] documented in this encounter Miscellaneous Notes Miscellaneous - John Norman M.D. - 03/21/2014 4:07 PM CDT Ambulatory Patient Summary [facility] [address] [id number] Visit Information Name: LAZ LUNA [facility] Number: [id number] Current Date: 03/21/2014 16:07:21 Physicians Attending Provider: JOHN NORMAN MD Primary Care Provider: KEVIN KILGORE MD LAZ LUNA has been given [...] the Following Medications: Medication list as of 03-21-14 16:07 Attention: If you have any medications at home that are not on this list, DO NOT take them until youcontact your provider for clarification. Give a copy of your medication list to your primary care provider. Update your medication list any time medications or doses are changed and carry your medication list at all times in case of emergency. Electronically Signed By: JOHN NORMAN MD Signed On:21-MAR-2014 16:07:07 Your Allergies & Intolerances Substance Reaction Symptoms [...] Upcoming Appointments Date Time Location Reason Provider No Appointments found Attention: Contact your local Clinic if further appointment detail needed. Your Goals/Additional instructions: Source: [facility] POWERCHART Document Id: [id number] Miscellaneous - John Norman M.D. - 03/21/2014 4:07 PM CDT Ambulatory Discharge Medication List [place] [facility] [address] [id number] Visit Information Name: LUNALAZ [facility] Number: [id number] Visit Date: 03/21/2014 16:07:18 Attending Provider: JOHN NORMAN MD Primary Care Provider: KEVIN KILGORE MD LAZ LUNA has been given [...] the Following Medications: Medication list as of 03-21-14 16:07 Attention: If you have any medications at home that are not on this list, DO NOT take them until youcontact your provider for clarification. Give a copy of your medication list to your primary care provider. Update your medication list any time medications or doses are changed and carry your medication list at all times in case of emergency. Electronically Signed By: JOHN NORMAN MD Signed On:21-MAR-2014 16:07:07 Additional Information: Source: [facility] POWERCHART Document Id: [id number] Miscellaneous - Lacie Donaldson R.N. - 03/21/2014 3:31 PM CDT Adult Problem Manager Intake/History Adult Problem Manager Intake/History Entered On: 03/21/2014 15:34 CDT Performed On: 03/21/2014 15:31 CDT by LACIE DONALDSON mail inserter Chief Complaint : f/u right shoulder pain which is slowly improving and MRI results Temperature Core : 36.6 DegC(Converted to: 97.9 DegF) Peripheral Pulse Rate : 49 /min (<LLOW) Respiratory Rate : 20 /min Heart Rhythm : Regular Systolic Blood Pressure : 130 mmHg Diastolic Blood Pressure : 80 mmHg NIBP Mean : 97 mmHg BP Location : Left upper extremity Blood Pressure Cuff Size : Large SpO2 : 94 % Height : 185 cm(Converted to: 6 ft 1 inch(es), 73 inch(es)) LACIE DONALDSON RN - 03/21/2014 15:31 CDT General Info Information Given By : Patient Preferred Communication Mode : Verbal Languages : Japanese LACIE DONALDSON RN - 03/21/2014 15:31 CDT Subjective Pain Symptoms : Yes LACIE DONALDSON RN - 03/21/2014 15:31 CDT Pain Pain Assessment Grid Pain 1 Location : Shoulder LACIE DONALDSON RN - 03/21/2014 15:31 CDT Dependent Habits Tobacco Use/Currently Using : No Smoking Status : Never smoker LACIE DONALDSON RN - 03/21/2014 15:31 CDT Tobacco Use Grid Last Use : never LACIE DONALDSON RN - 03/21/2014 15:31 CDT Caffeine Use Grid Caffeine Use : Current Type : Coffee, Soft drinks Frequency : Weekly Amount : soda- weekly; coffee- 1x/week LACIE DONALDSON RN - 03/21/2014 15:31 CDT Recreational Drug Use Grid Drug Use : None LACIE DONALDSON RN - 03/21/2014 15:31 CDT Source: [facility] POWERCHART Document Id: [id number] CDT!39 documented in this encounter Plan of Treatment Not on filedocumented as of this encounter Visit Diagnoses Not on filedocumented in this encounter Additional Health Concerns Assessment Noted Time PHQ-9 Depression Total Score: 18 02/14/2013 9:53 AM CD T documented as of this encounter
--- OUTSIDE RECORDS SUMMARY | 2022-07-29 10:54 | XMS_ITS | Encounter Summary ---
:1960 Author Organization [facility] Address [address] [place] [address] Care Team Providers Name Role Phone Unavailable Primary Care Provider Unavailable Encounter Details Date Type Department Care Team Description 05/10/2014 Hospital Encounter HX [facility] [address] [place] [phone] (Wo rk) Social History Tobacco Use Types Packs/Day Years Used Date Smoking Tobacco: Never Assessed Sex Assigned at Date Recorded Not on file documented as of this encounter Last Filed Vital Signs Vital Sign Reading Time Taken Comments Blood Pressure 138/70 05/10/2014 12:01 PM CDT Pulse - - Temperature - - Respiratory Rate - - Oxygen Saturation - - Inhaled Oxygen Concentration - - Weight - - Height 185 cm (6' 0.84) 05/10/2014 12:01 PM CDT Body Mass Index - - documented in this encounter Miscellaneous Notes Telephone Encounter - Conversion, Historical Provider Ser - 05/10/2014 12:07 PM CDT BP Document Contains Addenda Addendum by CINTIA KILGORE MD on 12 May 2014 14:55:36 CDT From: CINTIA KILGORE MD To: OLIVIA BECERRA V; Sent: 05/12/2014 14:55:36 CDT Subject: RE: BP Thanks for update. From: OLIVIA BECERRA V To: CINTIA KILGORE MD; Sent: 05/10/2014 12:07:26 CDT Subject: BP Pt presented for BP visit. Initial reading was 163/81 but pt was having trouble ambulating due to hip problems. After sitting 5 minutes his reading was 138/70 . AP was only 44. Denied wkness/dizziness/chest pain /SOB. He asked to tell you he saw an ad for levemir & wondered if that would be something to replace his insulin. Pt was advised that is also a type of insulin Source: [employer] Document Id: [id number] Miscellaneous - Conversion, Historical Provider Ser - 05/10/2014 12:01 PM CDT Ambulatory Vitals Height Weight Ambulatory Vitals Height Weight Entered On: 05/10/2014 12:02 CDT Performed On: 05/10/2014 12:01 CDT by OLIVIA BECERRA V Vitals/Ht/Wt Apical Heart Rate : 44 /min (<LLOW) Systolic Blood Pressure : 138 mmHg Diastolic Blood Pressure : 70 mmHg NIBP Mean : 93 mmHg BP Location : Left upper extremity Blood Pressure Cuff Size : Large SpO2 : 94 % Oxygen Therapy : Room air Height : 185 cm(Converted to: 6 ft 1 inch(es), 73 inch(es)) OLIVIA BECERRA V - 05/10/2014 12:01 CDT Source: [employer] Document Id: [id number] CDT!11 documented in this encounter Plan of Treatment Not on filedocumented as of this encounter Visit Diagnoses Not on filedocumented in this encounter Additional Health Concerns Assessment Noted Time PHQ-9 Depression Total Score: 18 02/14/2013 9:53 AM CD T documented as of this encounter
--- OUTSIDE RECORDS SUMMARY | 2022-07-29 10:54 | XMS_ITS | Encounter Summary ---
:1960 Author Organization [facility] Address [address] [place] [address] Care Team Providers Name Role Phone Unavailable Primary Care Provider Unavailable Encounter Details Date Type Department Care Team Description 11/18/2013 Hospital Encounter HX [facility] ED Pratik Aguila M.D. [address] [place] [address] [phone] (Wo rk) Social History Tobacco Use Types Packs/Day Years Used Date Smoking Tobacco: Never Assessed Sex Assigned at Date Recorded Not on file documented as of this encounter Last Filed Vital Signs Vital Sign Reading Time Taken Comments Blood Pressure 165/96 11/18/2013 4:35 PM CDT Pulse 48 11/18/2013 4:35 PM CDT Temperature - - Respiratory Rate 18 11/18/2013 4:35 PM CDT Oxygen Saturation - - Inhaled Oxygen Concentration - - Weight 152 kg (335 lb 1.6 oz) 11/18/2013 4:35 PM CDT Height 185 cm (6' 0.84) 11/18/2013 4:35 PM CDT Body Mass Index 44.41 11/18/2013 4:35 PM CDT documented in this encounter Discharge Summaries Sabra Aguila M.D. - 11/20/2013 3:56 PM CDT ED Discharge Instructions [address] [address] Name: JEREMYNOEMÍ Date of : 1960 12:00 AM Visit Date: 11/18/2013 4:[address] [facility] Number: [id number] [address] [facility] [id number] Primary Care Provider: KEVIN KILGORE MD IMPORTANT: [facility] in [place] would like to thank you for allowing us to assist you with your healthcare needs. The following includes patient education materials and informationregarding your injury/illness. Chief Complaint: Shoulder injury - Major; Shoulder pain-swelling; Right shoulder pain for about a month, getting worse Follow-Up Instructions: With: Address: When: noni Within As Needed Comments: With: Address: When: SASHA ZULETA [address] [place] [address] Business (1) Within As Needed Comments: With: Address: When: KEVIN KILGORE [address] [place] [address] Business (1) Within As Needed Comments: Patient Education Materials: [id number] ROTATOR CUFF TEAR The rotator cuff is a group of muscles and tendons that surround the shoulder joint. These muscles and tendons hold the arm in its joint and help the shoulder to rotate. The rotator cuff can be torn from overuse or injury. Gradual wear and tear can lead to inflammation of these tendons, which can progress to gradual or sudden tears. Symptoms of a torn rotator cuff: ?? Shoulder pain that gets worse when you raise your arm overhead ?? Weakness of the shoulder muscles with overhead activity ?? Popping and clicking with shoulder movement ?? Shoulder pain wakes you up at night when sleeping on the affected shoulder Diagnosis is made by an MRI scan or arthroscopy (a surgical procedure to look inside the joint through a small tube). Partial rotator cuff tears can be treated by first resting, then strengthening the rotator cuff muscles. Anti-inflammatory medicines are useful. A limited number of steroid injections can be given. Surgerymay be recommended for complete tears and partial tears that do not respond to medical treatment. HOME CARE: 1. Avoid activities that make your pain worse - like overhead activities, doing the same motion overand over, and heavy lifting. 2. Make an ice pack (ice in a plastic bag, wrapped in a towel) and apply over the injured area for 20 minutes every 1-2 hours for the first day. Continue with ice packs 3-4 times a day for the next twodays. Continue using ice packs for pain relief if needed. 3. You may use acetaminophen (Tylenol) or ibuprofen (Motrin, Advil) to control pain, unless another medicine was prescribed. [NOTE: If you have chronic liver or kidney disease or ever had a stomach ulcer or GI bleeding, talk with your doctor before using these medicines.] 4. If a sling was provided, use it for comfort. After acute pain decreases, do not keep your arm in the sling all the time. Take it out several times a day and move the shoulder joint, as tolerated. You may benefit from physical therapy or a home exercise program to strengthen your shoulder muscles and increase your pain-free range of motion. Talk to your doctor about what is best for your condition. FOLLOW UP with your doctor or as advised by our staff. GET PROMPT MEDICAL ATTENTION if any of the following occur: ?? Increasing shoulder pain ?? Rapid swelling in the involved shoulder or arm ?? Numbness, tingling, or pain radiating down the arm to the hand Loss of strength in the affected arm ?? [id number] [facility], [address] [place] [address]. All rights reserved. This information is not intended as a substitute for professional medical care. Always follow your healthcare professional's instructions. [id number] SHOULDER IMPINGEMENT SYNDROME The rotator cuff is a group of muscles and tendons that surround the shoulder joint. These muscles and tendons hold the arm in its joint and help the shoulder to rotate. The rotator cuff muscles and tendons can become inflamed from the wear and tear of repeated rubbing against the shoulder bone. This is called Shoulder Impingement Syndrome (also called Rotator Cuff Tendonitis). If your case is mild, it may be enough to rest the shoulder and then do prescribed exercises to strengthen the muscles. Anti-inflammatory medicines are useful. A limited number of steroid injections into the rotator cuff can be given to relieve inflammation. If the condition gets worse, the muscles may become thin and weak. This can lead to a Rotator Cuff tear. Symptoms of a Shoulder Impingement Syndrome may include: ?? Shoulder pain that gets worse when raising your arm overhead. ?? Weakness of the shoulder muscles with overhead activity. ?? Popping and clicking with shoulder movement. ?? Shoulder pain that wakes you up at night when sleeping on the affected shoulder. HOME CARE: 1. Avoid activities that make your pain worse, such as raising your arms overhead, repeating the same motion over and over, or heavy lifting. 2. Do not hold your arm in one position for a long time - keep it moving. 3. Make an ice pack (ice cubes in a plastic bag, wrapped in a towel) and apply over the sore area for 20 minutes every 1-2 hours for the first day. You should continue with ice packs 3-4 times a day for the next two days. Continue the use of ice packs for relief of pain and swelling as needed. 4. You may use acetaminophen (Tylenol) or ibuprofen (Motrin, Advil) to control pain, unless another medicine was prescribed. If prednisone was prescribed, do not take ibuprofen-type medicines. [NOTE: If you have chronic liver or kidney disease or ever had a stomach ulcer or GI bleeding, talk with yourdoctor before using these medicines.] 5. After your symptoms decrease, you may benefit from physical therapy or a home exercise program tostrengthen your shoulder muscles and increase your pain-free range of motion. Talk to your doctor about what is best for your condition. FOLLOW UP with your doctor, or as advised by our staff. RETURN PROMPTLY or contact your doctor if any of the following occur: ?? Increasing shoulder pain, waking you up during the night ?? Swelling in the involved shoulder or arm ?? Numbness, tingling, or pain radiating down the arm to the hand Loss of strength in the affected side ?? [phone], [place] [address]. All rights reserved. This information is not intended as a substitute for professional medical care. Always follow your healthcare professional's instructions. 91312 Understanding Rotator Cuff Injuries The rotator cuff is a team of muscles and connecting tendons in the shoulder. It attaches your upperarm to your shoulder blade. Your rotator cuff helps you reach, throw, push, pull, and lift. Without it, your shoulder cannot do its job. Overuse tendinitis is irritation, bruising, or fraying of the rotator cuff. A Healthy Rotator Cuff A healthy rotator cuff gives your shoulder flexibility and control. The rotator cuff holds your upper arm bone (humerus) in your shoulder socket (glenoid). It also helps move the shoulder. A Damaged Rotator Cuff Pain and weakness told you that something was wrong with your shoulder. Now you know its a rotator cuff problem. Rotator cuff tendons can become damaged or inflamed. This is called tendonitis. Possiblecauses include: ?? Irritation from overuse ?? Pinching (impingement) ?? Calcium deposits (calcification) ?? Tears in the tendon. Making Your Shoulder Healthy Again Care for your shoulder will most likely begin with nonsurgical treatments. You may start with simplerest. If needed, you can have pain-soothing injections. Your doctor will tell you how often you may need these treaments. If rest and injections relieve your pain, you will be given an exercise program. This will help restore your shoulders power. If your pain just wont quit, your doctor may suggest surgery to repair the rotator cuff. ?? [phone] [facility], [address] [place] [address]. All rights reserved. This information is not intended as a substitute for professional medical care. Always follow your healthcare professional's instructions. ED Tests and Procedures: Order Status Discharge Prescriptions & Home Medications: Medication/Strength Dose Route Frequency Indications/Special Instructions/Comments/Notes allopurinol (allopurinol 300 mg oral tablet) 300 mg Oral once a day chlorthalidone (chlorthalidone 50 mg oral tablet) 50 mg Oral once a day ibuprofen (Advil) 200 mg Oral 2 tabs daily simvastatin (simvastatin 40 mg oral tablet) 40 mg Oral once a day (at bedtime) lisinopril (lisinopril 40 mg oral tablet) 40 mg Oral two times a day metFORMIN (metformin 1000 mg oral tablet) 1,000 mg Oral two times a day with meals metoprolol (metoprolol tartrate 100 mg oral tablet) 100 mg Oral two times a day hydrocortisone topical (hydrocortisone 2.5% topical lotion) 1 jannie Topical three times a day liraglutide (Victoza) 1.8 mg Subcutaneous once a day insulin glargine (Lantus Solostar Pen 100 units/mL subcutaneous solution) 60 units Subcutaneous oncea day omeprazole (omeprazole 20 mg oral delayed release capsule) 20 mg Oral once a day docusate-senna (Dok Plus) 2 tab(s) Oral once a day tadalafil (Cialis 20 mg oral tablet) 1 tab(s) Oral once a day as needed for erectile dysfunction Take as needed prior to anticipated sexual activity Comment: Attention: If you have any medications [...] with a responsible constitution party. I, JEREMY, ED , or responsible constitution party have received this information and my questions have been answered. I have discussed any challenges I see with this plan with the nurse or physician. Patient Signature or Responsible Republican/Relationship Date Time Provider Signature Date Time Medication [...] with a responsible constitution party. I, JEREMY, ED , or responsible constitution party have received this information and my questions have been answered. I have discussed any challenges I see with this plan with the nurse or physician. Patient Signature or Responsible Republican/Relationship Date Time Provider Signature Date Time This document has images extracted. Please consider using [facility] for all your patient education needs. Source: [facility] POWERCHART Document Id: [id number] Sabra Aguila M.D. - 11/20/2013 3:56 PM CDT ED Depart Summary [facility] Clinical Discharge Summary PERSON INFORMATION Name NOEMÍ LUNA Age 53 Years 1960 12:00 AM Sex Male Language Belarusian PCP KEVIN KILGORE MD Marital Status Visit Id Visit Reason Shoulder injury - Major; Shoulder pain-swelling; Right shoulder pain for about a month,getting worse Specialty Enc Type Emergency Med Service Emergency Medicine Referred by [facility] ED Discharge 11/18/2013 5:17 PM Tracking Id [id number] Checkout 11/18/2013 5:17 PM Checkin 11/18/2013 4:27 PM Acuity 3 -Urgent Dispo Type * Discharged to Home or Self Care Arrival 11/18/2013 4:27 PM Reg Status LOS 000 00:50 Address: [address] [place] [phone] Comment: PROVIDER INFORMATION Provider Role Provider Contact Time SABRA AGUILA MD ED Provider 11/18/13 16:35 LESLI SOTOMAYOR DEPUTY OF COUNTER INTELLIGENCE Nurse 11/18/13 16:35 DIAGNOSIS Comment: PATIENT EDUCATION INFORMATION Instructions: ROTATOR CUFF TEAR; SHOULDER IMPINGEMENT SYNDROME; Understanding Rotator Cuff Injuries Follow up: With: Address: When: noni Within As Needed Comments: With: Address: When: SASHA ZULETA [address] [place] [address] Business (1) Within As Needed Comments: With: Address: When: [facility] [address] [place] [address] Business (1) Within As Needed Comments: [facility] Document Id: [id number] documented in this encounter ED Notes Lesli Sotomayor R.N. - 11/18/2013 5:17 PM CDT ED Pain Assessment ED Pain Assessment Entered On: 11/18/2013 17:17 CDT Performed On: 11/18/2013 17:17 CDT by LESLI SOTOMAYOR RN Pain Assessment Pain Symptoms : Yes LESLI SOTOMAYOR RN - 11/18/2013 17:17 CDT Source: [facility] CardioDx Document Id: [id number] CDT!3 Lesli Sotomayor RPiliN. - 11/18/2013 5:16 PM CDT ED Disposition Summary ED Disposition Summary Entered On: 11/18/2013 17:17 CDT Performed On: 11/18/2013 17:16 CDT by LESLI SOTOMAYOR DEPUTY OF COUNTER INTELLIGENCE Disposition Summary Accompanied By : Alone Mode of Discharge : Ambulatory Transportation : Private vehicle Printed Discharge Instructions Given to Patient : Yes Patient Status at Discharge from ED : Unchanged LESLI SOTOMAYOR RN - 11/18/2013 17:16 CDT Source: [facility] [employer] Document Id: [id number] CDT!7 Sabra Aguila M.D. - 11/18/2013 4:59 PM CDT Shoulder injury - Major Document Contains Addenda Patient: NOEMÍ LUNA Age: 53 years Sex: Male : 1960 Author: SABRA AGUILA MD Attachments: None Basic Information Time seen: Date 03/13/2013, Immediately upon arrival. History source: Patient. Arrival mode: Private vehicle, walking. History limitation: None. Additional information: Chief Complaint from Nursing Triage Note : Chief Complaint Description 11/18/2013 16:40 CDT Chief Complaint Description see triage 11/18/2013 16:35 CDT Chief Complaint Description Patient presents with right shoulder pain that beenthere for a month but getting worse. Was in clinic getting blood pressure check and wanted to get arm check. . History of Present Illness The patient presents with right, shoulder pain. The onset was 4 weeks ago. The course/duration of symptoms is constant, worsening and fluctuating in intensity. Type of injury: none. The location where the incident occurred was at home. Location: right. Radiating pain: right side of the back. upper back. The character of symptoms is pain, dull and achy. The degree of pain is moderate. The degree of swelling is none. There are exacerbating factors including movement and palpation. There are relieving factors including rest, immobilization and position. Risk factors consist of repetitive stress. The pa tieleena's dominant hand is the right hand. Prior episodes: frequent. Therapy today: none. Associated symptoms: none. Additional history: none. Review of Systems Constitutional symptoms: No fever, no chills, no sweats or no weakness. Skin symptoms: No jaundice, no rash or no pruritus. Eye symptoms: No recent vision problems. ENMT symptoms: No ear pain or no sore throat. Respiratory symptoms: No hemoptysis or no stridor. Cardiovascular symptoms: No chest pain, no palpitations, no tachycardia or no diaphoresis. Gastrointestinal symptoms: No abdominal pain, no nausea, no vomiting or no diarrhea. Genitourinary symptoms: No dysuria. Neurologic symptoms: No altered level of consciousness or no tingling. Endocrine symptoms: No polyuria or no polyphagia. Hematologic/Lymphatic symptoms: Bleeding tendency negative or no swollen nodes. Allergy/immunologic symptoms: No impaired immunity. Additional review of systems information: All other systems reviewed and otherwise negative. Health Status Allergies: Allergic Reactions (Selected) Severity Not Documented Cipro- No reactions were documented. Nonallergic Reactions (Selected) Severity Not Documented Influenza Virus Vaccine- Diarrhea.. Past Medical/ Family/ Social History Medical history: Active Fracture Closed Radial head (ICD-9-CM 813.05): Onset on 09/29/2012 at 52 years. Comments: 09/30/2012 DRY PLASTERER 15:06 STEVE COUCH CNP left Genital warts (ICD-9-CM 078.19) Comments: 09/30/2013 DRY PLASTERER 11:47 ANOOP MESSER TRANSCRIPTION SPECIALIST onset unknown Tinea pedis* (ICD-9-CM 110.4) Comments: 09/30/2013 DRY PLASTERER 11:47 ANOOP MESSER TRANSCRIPTION SPECIALIST onset unknown Tinea cruris. (ICD-9-CM 110.3) Comments: 09/30/2013 DRY PLASTERER 11:47 ANOOP MESSER TRANSCRIPTION SPECIALIST onset unknown. Surgical history: Cystoscopy ([id number]) on 12/26/2009 at 49 Years. Comments: 02/20/2010 08:36 - STEVE ANDREA CNP [facility] / normal PSA, TOTAL SCREENING ([id number]) on 12/26/2009 at 49 Years. Comments: 02/20/2010 08:38 - STEVE ANDREA ENHANCED ENVIRONMENTAL OPERATOR Done at [place] / Result: 1.55 Discectomy ([id number]) on 02/19/1989 at 28 Years. Comments: 12/28/2009 09:38 - STEVE ANDREA ENHANCED ENVIRONMENTAL OPERATOR lumbar L4-L5. Family history: Hypertension Father Congestive heart failure Father . Physical Examination Vital Signs: Vital Signs 11/18/2013 16:35 CDT Temperature Core 36.5 DegC Peripheral Pulse Rate 48 /min <LLOW Respiratory Rate 18 /min SpO2 95 % Systolic Blood Pressure 165 mmHg >HHI Diastolic Blood Pressure 96 mmHg >HHI Mean Arterial Pressure 119 mmHg 11/18/2013 16:19 CDT Peripheral Pulse Rate 50 /min LOW Systolic Blood Pressure 173 mmHg >HHI Diastolic Blood Pressure 93 mmHg >HHI Mean Arterial Pressure 120 mmHg BP Location Left upper Blood Pressure Cuff Size Large 11/18/2013 16:01 CDT Peripheral Pulse Rate 48 /min <LLOW Systolic Blood Pressure 152 mmHg HI Diastolic Blood Pressure 82 mmHg Mean Arterial Pressure 105 mmHg BP Location Left upper Blood Pressure Cuff Size Large , Measurements 11/18/2013 16:35 CDT Height 185 cm Dosing Weight 152.00 kg Actual Weight 152 kg Body Mass Index 44.41 kg/m2 , SpO2 11/18/2013 16:35 CDT SpO2 95 % . Medical Decision Making Differential Diagnosis:Contusion, sprain, rotator cuff injury, strain, shoulder separation, arthritis. Documents reviewed:Emergency department nurses' notes. Reexamination/ Reevaluation Vital signs results included from flowsheet : Vital Signs 11/18/2013 16:35 CDT Temperature Core 36.5 DegC Peripheral Pulse Rate 48 /min <LLOW Respiratory Rate 18 /min SpO2 95 % Systolic Blood Pressure 165 mmHg >HHI Diastolic Blood Pressure 96 mmHg >HHI Mean Arterial Pressure 119 mmHg 11/18/2013 16:19 CDT Peripheral Pulse Rate 50 /min LOW Systolic Blood Pressure 173 mmHg >HHI Diastolic Blood Pressure 93 mmHg >HHI Mean Arterial Pressure 120 mmHg BP Location Left upper Blood Pressure Cuff Size Large 11/18/2013 16:01 CDT Peripheral Pulse Rate 48 /min <LLOW Systolic Blood Pressure 152 mmHg HI Diastolic Blood Pressure 82 mmHg Mean Arterial Pressure 105 mmHg BP Location Left upper Blood Pressure Cuff Size Large Course: unchanged. Pain status: unchanged. Assessment: exam unchanged. Interventions: Order Profile (Selected) Prescriptions Completed traMADol 50 mg oral tablet: 100 mg, 2 tab(s), PO, q6hr, 60 tab(s), PRN: Pain. Impression and Plan Plan Condition: Unchanged. Disposition: Discharged: to home. Addendum Tramadol Rx'd Electronically Signed By: SABRA AGUILA MD On: 11/20/2013 03:57 PM Modified by and Electronically Signed by: SABRA AGUILA MD On: 11/20/2013 03:57 PM Source: [facility] POWERCHART Document Id: [id number]} Lesli Sotomayor RPiliNPili - 11/18/2013 4:40 PM CDT ED Primary Assessment Document Has Been Updated ED Primary Assessment Entered On: 11/18/2013 16:40 CDT Performed On: 11/18/2013 16:40 CDT by LESLI SOTOMAYOR RN Reason For Visit (As Of: 11/18/2013 16:40:51 CDT) Problems(Active) BPH without urinary obstruction (ICD-9-CM :600.00 ) Name of Problem: BPH without urinary obstruction; Recorder: STEVE ANDREA CNP; Confirmation: Confirmed ; Classification: Medical ; Code: 600.00 ; Contributor System: [employer] ; Last Updated: 02/15/2010 10:00 CDT ; [...] Medical ; Code: 250.02 ; Contributor System: [employer] ; Last Updated: 07/24/2011 10:45 DRY PLASTERER ; Life Cycle Date: 12/05/2010 ; Life Cycle Status: Active ; Responsible Provider: SETVE ANDREA CNP; Vocabulary: ICD-9-CM Eczema (ICD-9-CM :692.9 ) Name of Problem: Eczema ; Recorder: STEVE ANDREA CNP; Confirmation: Confirmed ; Classification: Medical ; Code: 692.9 ; Contributor System: [employer] ; Last Updated: 09/05/2010 9:56 DRY PLASTERER ; Life Cycle Date: 09/05/2010 ; Life [...] System: Power[employer] ; Last Updated: 09/30/2012 15:06 DRY PLASTERER ; Life Cycle Date: 09/30/2012 ; Life Cycle Status: Active ; Responsible Provider: STEVE ANDREA CNP; Vocabulary: ICD-9-CM ; Comments: 09/30/2012 15:06 - STEVE ANDREA CNP left Genital warts (ICD-9-CM :078.19 ) Name of Problem: Genital warts ; Recorder: MARILUZ FRAGA MD; Confirmation: Confirmed ; Classification: Medical ; Code: 078.19 ; Contributor System: [employer] ; Last Updated: 02/11/2013 16:19 CDT ; Life Cycle Date: 02/11/2013 ; Life Cycle Status: Active ; Responsible Provider: MARILUZ FRAGA MD; Vocabulary: ICD-9-CM ; Comments: 09/30/2013 11:47 - IKE [place] R TRANSCRIPTION SPECIALIST onset unknown Hyperlipidemia (ICD-9-CM :272.4 ) Name [...] Confirmation: Confirmed ; Classification: Medical ; Code: 695.89 ; Last Updated: 07/14/2012 14:36 DRY PLASTERER ; Life Cycle Status: Active ; Responsible Provider: MARILUZ FRAGA MD; Vocabular y: ICD-9-CM Morbid Obesity (BMI > 40) (V85.4) [...] System: Power[employer] ; Last Updated: 09/05/2010 9:56 DRY PLASTERER ; Life Cycle Date: 09/05/2010 ; Life Cycle Status: Active ; Responsible Provider: STEVE ANDREA CNP; Vocabulary: ICD-9-CM ; Comments: 09/30/2013 11:ANOOP ISAAC R TRANSCRIPTION SPECIALIST onset unknown Optic disc cupping (ICD-9-CM :377.14 [...] Medical ; Code: 110.3 ; Contributor System: [employer] ; Last Updated: 06/01/2013 9:06 CDT ; Life Cycle Date: 06/01/2013 ; Life Cycle Status: Active ; Responsible Provider: MARILUZ FRAGA MD; Vocabulary: ICD-9-CM ; Comments: 09/30/2013 11:ANOOP ISAAC RLPN onset unknown Tinea pedis* (ICD-9-CM :110.4 ) Name of Problem: Tinea pedis* ; Recorder: MARILUZ FRAGA MD; Confirmation: Confirmed ; Classification: Medical ; Code: 110.4 ; Contributor System: [employer] ; Last Updated: 06/01/2013 9:06 CDT ; Life Cycle Date: 06/01/2013 ; Life Cycle Status: Active ; Responsible Provider: MARILUZ FRAGA MD; Vocabulary: ICD-9-CM ; Comments: 09/30/2013 11:ANOOP ISAAC R TRANSCRIPTION SPECIALIST onset unknown Ulcer of skin NOS (ICD-9-CM :707.9 ) Name of Problem: Ulcer of skin NOS ; Recorder: HALEIGH SCHULTZ CNP; Confirmation: Confirmed ; Classification: Medical ; Code: 707.9 ; Contributor System: [employer]; Last Updated: 09/18/2010 8:25 DRY PLASTERER ; Life Cycle Date: 09/18/2010 ; Life Cycle Status: Active ; Responsible Provider: HALEIGH SCHULTZ CNP; Vocabulary: ICD-9-CM ; Comments: 09/30/2013 11:47 - ANOOP QUEVEDO LPN onset unknown Urge Incontinence (ICD-9-CM :788.31 ) Name of Problem: Urge Incontinence ; Recorder: STEVE ANDREA; Confirmation: Confirmed ; Classification: Medical ; Code: 788.31 ; Contributor System: [employer] ; Last Updated: 02/20/2010 8:39 CDT ; Life Cycle Date: 02/20/2010 ; Life Cycle Status: Active ; Responsible Provider: STEVE ANDREA CNP; Vocabulary: ICD-9-CM ; Comments: 09/30/2013 11:46 - ANOOP QUEVEDO LPN onset unknown Triage Chief Complaint Description : see triage Mode of Arrival ED : Private vehicle, Ambulatory Track : Trauma Other Languages : Belarusian Treatments Prior to Arrival : None LESLI SOTOMAYOR RN - 11/18/2013 16:40 CDT Pain Assessment Pain Symptoms : Yes LESLI SOTOMAYOR RN - 11/18/2013 16:40 CDT Respiratory Airway : Patent Respirations : Unlabored Respiratory Pattern : Regular LESLI SOTOMAYRO RN - 11/18/2013 16:40 CDT Cardiovascular Heart Rhythm : Regular Skin Color : Normal for ethnicity Skin Description : Dry Skin Temperature : Warm LESLI SOTOMAYOR RN - 11/18/2013 16:40 CDT Neurological Last Well Time Known : Not applicable Level of Consciousness : Alert Orientation : Oriented x 3 Characteristics of Speech : Appropriate for age LESLI SOTOMAYOR RN - 11/18/2013 16:40 CDT ED Psychosocial Affect/Behavior : Calm Domestic Abuse Concerns : None LESLI SOTOMAYOR RN - 11/18/2013 16:40 CDT Gastrointestinal Nutrition ED : Adequate LESLI SOTOMAYOR RN - 11/18/2013 16:40 CDT Musculoskeletal Fall Prevention Education Provided : NA LESLI SOTOMAYOR RN - 11/18/2013 16:40 CDT Social Habits Tobacco Use/Currently Using : No Smoking Status : Never smoker LESLI SOTOMAYOR RN - 11/18/2013 16:40 CDT Tobacco Use Grid Last Use : never LESLI SOTOMAYOR RN - 11/18/2013 16:40 CDT Recreational Drug Use Grid Drug Use : None LESLI SOTOMAYOR RN - 11/18/2013 16:40 CDT Source: [facility] POWERCHART Document Id: [id number] CDT!39 Lesli Sotomayor R.N. - 11/18/2013 4:35 PM CDT ED Triage Assessment Document Has Been Updated ED Triage Assessment Entered On: 11/18/2013 16:40 CDT Performed On: 11/18/2013 16:35 CDT by LESLI SOTOMAYOR RN Reason For Visit (As Of: 11/18/2013 16:41:58 CDT) Problems(Active) BPH without urinary obstruction (ICD-9-CM :600.00 ) Name of Problem: BPH without urinary obstruction; Recorder: STEVE ANDREA CNP; Confirmation: Confirmed ; Classification: Medical ; Code: 600.00 ; Contributor System: [employer] ; Last Updated: 02/15/2010 10:00 CDT ; [...] System: PowerChart ; Last Updated: 07/24/2011 10:45 DRY PLASTERER ; Life Cycle Date: 12/05/2010 ; Life Cycle Status: Active ; Responsible Provider: STEVE ANDREA CNP; Vocabulary: ICD-9-CM Eczema (ICD-9-CM :692.9 ) Name of Problem: Eczema ; Recorder: STEVE ANDREA CNP; Confirmation: Confirmed ; Classification: Medical ; Code: 692.9 ; Contributor System: [employer] ; Last Updated: 09/05/2010 9:56 DRY PLASTERER ; Life Cycle Date: 09/05/2010 ; Life Cycle Status: Active ; Responsible Provider: STEVE ANDREA CNP; Vocabulary: ICD-9-CM ; Comments: 09/30/2013 11:47 - ANOOP QUEVEDO LPN onset unknown Erectile dysfunction* (ICD-9-CM :607.84 ) Name of Problem: Erectile dysfunction* ; Recorder: STEVE ANDREA CNP; Confirmation: Confirmed ; Classification: Medical ; Code: 607.84 ; Contributor System: [employer] ; Last Updated: 12/28/2009 9:40 CDT ; [...] System: PowerChart ; Last Updated: 09/30/2012 15:06 DRY PLASTERER ; Life Cycle Date: 09/30/2012 ; Life Cycle Status: Active ; Responsible Provider: STEVE ANDREA CNP; Vocabulary: ICD-9-CM ; Comments: 09/30/2012 15:06 - STEVE ANDREA CNP left Genital warts (ICD-9-CM :078.19 ) Name of Problem: Genital warts ; Recorder: MARILUZ FRAGA MD; Confirmation: Confirmed ; Classification: Medical ; Code: 078.19 ; Contributor System: PowerChart ; Last Updated: 02/11/2013 16:19 CDT ; Life [...] Confirmation: Confirmed ; Classification: Medical ; Code: 695.89 ; Last Updated: 07/14/2012 14:36 DRY PLASTERER ; Life Cycle Status: Active ; Responsible Provider: MARILUZ FRAGA MD; Vocabular y: ICD-9-CM Morbid Obesity (BMI > 40) (V85.4) [...] System: PowerChart ; Last Updated: 09/05/2010 9:56 DRY PLASTERER ; Life Cycle Date: 09/05/2010 ; Life [...] ; Comments: 09/30/2013 11:47 ANOOP GONZALEZ R TRANSCRIPTION SPECIALIST onset unknown Ulcer of skin NOS (ICD-9-CM :707.9 ) Name of Problem: Ulcer of skin NOS ; Recorder: HALEIGH SCHULTZ CNP; Confirmation: Confirmed ; Classification: Medical ; Code: 707.9 ; Contributor System: PowerChart; Last Updated: 09/18/2010 8:25 DRY PLASTERER ; Life Cycle Date: 09/18/2010 ; Life Cycle Status: Active ; Responsible Provider: HALEIGH SCHULTZ CNP; Vocabulary: ICD-9-CM ; Comments: 09/30/2013 11:ANOOP ISAAC R TRANSCRIPTION SPECIALIST onset unknown Urge Incontinence (ICD-9-CM :788.31 ) Name of Problem: Urge Incontinence ; Recorder: STEVE ANDREA; Confirmation: Confirmed ; Classification: Medical ; Code: 788.31 ; Contributor System: PowerChart ; Last Updated: 02/20/2010 8:39 CDT ; Life Cycle Date: 02/20/2010 ; Life Cycle Status: Active ; Responsible Provider: STEVE ANDREA CNP; Vocabulary: ICD-9-CM ; Comments: 09/30/2013 11:46 - ANOOP QUEVEDO TRANSCRIPTION SPECIALIST onset unknown Triage Vital Signs Assessed : Yes SOTOMAYOR, LESLI Violette RN - 11/18/2013 16:41 CDT Chief Complaint Description : Patient presents with right shoulder pain that been there for a month but getting worse. Was in clinic getting blood pressure check and wanted to get arm check. Accompanied By : Alone Mode of Arrival ED : Private vehicle, Ambulatory Track : Trauma Other Languages : [place]ian Treatments Prior to Arrival : None STEPHANIE SOTOMAYORFER Violette HENDRIX - 11/18/2013 16:35 CDT Vital Signs Temperature Core : 36.5 DegC(Converted to: 97.7 DegF) Peripheral Pulse Rate : 48 /min (<LLOW) Respiratory Rate : 18 /min Systolic Blood Pressure : 165 mmHg (>HHI) Diastolic Blood Pressure : 96 mmHg (>HHI) NIBP Mean : 119 mmHg SpO2 : 95 % Oxygen Therapy : Room air Height : 185 cm(Converted to: 6 ft 1 inch(es)) Actual Weight : 152 kg Actual Weight Conversion to Pounds : 334.4 lb Body Mass Index : 44.41 kg/m2 LESLI SOTOMAYOR RN - 11/18/2013 16:41 CDT Pain Assessment Pain Symptoms : Yes LESLI SOTOMAYOR RN - 11/18/2013 16:35 CDT Pain Pain Assessment Grid Pain 1 Location : Shoulder Laterality : Right Intensity : 4 LESLI SOTOMAYOR RN - 11/18/2013 16:35 CDT Comfort Measures Comfort Measures Grid Rest : Yes LESLI SOTOMAYOR RN - 11/18/2013 16:35 CDT ED Physician Notification Time ED Physician Notification Time : 11/18/2013 16:38 CDT LESLI SOTOMAOYR RN - 11/18/2013 16:35 CDT ERIN ERIN Level 1 : No ERIN Level 2 : No ERIN Level 3 : One LESLI SOTOMAYOR RN - 11/18/2013 16:35 CDT DCP GENERIC CODE Tracking Group : [facility] ED Tracking Acuity : 3 -Urgent LESLI SOTOMAYOR RN - 11/18/2013 16:35 CDT Allergy (As Of: 11/18/2013 16:40:03 CDT) Allergies (Active) Cipro Estimated Onset Date: Unspecified ; Created By: STEVE ANDREA CNP; Reaction Status: Active ;Category: Drug ; Substance: Cipro ; Type: Allergy ; Updated By: STEVE ANDREA CNP; Reviewed Date: 11/18/2013 16:39 CDT Influenza Virus Vaccine Estimated Onset Date: Unspecified ; Reactions: diarrhea ; Created By: STEVE ANDREA CNP; Reaction Status: Active ; Category: Drug ; Substance: Influenza Virus Vaccine ; Type: Intolerance ; Updated By: STEVE ANDREA CNP; Reviewed Date: 11/18/2013 16:39 CDT ID Screen Drug Resistant Organism : No LESLI SOTOMAYOR RN - 11/18/2013 16:35 CDT Immunizations Immunizations Current : Yes LESLI SOTOMAYOR RN - 11/18/2013 16:35 CDT Source: [employer] Document Id: [id number] CDT!16 documented in this encounter Miscellaneous Notes Miscellaneous - Lesli Sotomayor R.N. - 11/18/2013 5:17 PM CDT Valuables/Belongings Valuables/Belongings Entered On: 11/18/2013 17:17 CDT Performed On: 11/18/2013 17:17 CDT by LESLI SOTOMAYOR RN Valuables/Belongings Home Medication Disposition : None brought in with patient LESLI SOTOMAYOR RN - 11/18/2013 17:17 CDT Source: [employer] Document Id: [id number] CDT!3 Miscellaneous - Lesli Sotomayor R.N. - 11/18/2013 4:27 PM CDT Facility Charge Ticket 2.0 11.0 DX Facility Charge Ticket 2.0 11.0 DX Entered On: 11/18/2013 17:17 CDT Performed On: 11/18/2013 16:27 CDT by LESLI SOTOMAYOR RN Facility Charge Ticket 2.0 11.0 DX ED Other Charges : Standard ED Encounter TVL Level Translated RTF : Shoulder pain-swelling, Shoulder injury - Major TVL:4 TVL Level for Facility Charge Ticket : Level 4 Arrival Mode Calc : 1 Mode of Arrival ED : Private vehicle, Ambulatory [facility] Mode of Arrival Interpreted : Standard [facility] Process Management : None [facility] Order Management : None 30 Minutes Critical Care : No Nursing Notes RTF : Triage Forms ED Triage Assessment,11/18/13 16:35,LESLI SOTOMAYOR RN Nursing Notes ED Primary Assessment,11/18/13 16:40,LESLI SOTOMAYOR RN ED Pain Assessment,11/18/13 17:17,LESLI SOTOMAYOR RN [facility] Nursing Assessment : Triage and 1-2 nursing assessments [facility] Disposition : Discharge [facility] Total Points with Diagnosis Control : 7 [facility] Visit Level : 34937 Level 3 Treatments Prior to Arrival : None LESLI SOTOMAYOR RN - 11/18/2013 17:17 CDT Source: [facility] POWERCHART Document Id: [id number] CDT!17 documented in this encounter Plan of Treatment Not on filedocumented as of this encounter Visit Diagnoses Not on filedocumented in this encounter Additional Health Concerns Assessment Noted Time PHQ-9 Depression Total Score: 18 02/14/2013 9:53 AM CD T documented as of this encounter
--- OUTSIDE RECORDS SUMMARY | 2022-07-29 10:54 | XMS_ITS | Encounter Summary ---
:1960 Author Organization [facility] Address [address] [place] [address] Care Team Providers Name Role Phone Unavailable Primary Care Provider Unavailable Encounter Details Date Type Department Care Team Description 08/10/2014 Hospital Encounter HX [facility] [place] Kevin Aguirre M.D. [address] [place] [phone] (Wo rk) Social History Tobacco Use Types Packs/Day Years Used Date Smoking Tobacco: Never Assessed Sex Assigned at Date Recorded Not on file documented as of this encounter Last Filed Vital Signs Vital Sign Reading Time Taken Comments Blood Pressure 155/73 08/10/2014 7:21 PM GLASS FURNACE OPERATOR Pulse 57 08/10/2014 6:11 PM GLASS FURNACE OPERATOR Temperature - - Respiratory Rate - - Oxygen Saturation - - Inhaled Oxygen Concentration - - Weight 167 kg (368 lb 2.7 oz) 08/10/2014 6:11 PM GLASS FURNACE OPERATOR Height 185 cm (6' 0.84) 08/10/2014 7:21 PM GLASS FURNACE OPERATOR Body Mass Index 48.79 08/10/2014 6:11 PM GLASS FURNACE OPERATOR documented in this encounter H&P Notes Kevin Cobb M.D. - 08/10/2014 6:05 PM CST [id number] CHIEF COMPLAINT/REASON FOR VISIT Preanesthesia medical exam. HISTORY OF PRESENT ILLNESS Ed is a 54-year-old, male who presents today for preanesthesia medical exam prior to undergoing gastric bypass surgery on August 25 in [facility] in [place]. He has never had any problems with anesthesia in the past and has no history of bleeding or blood clot issues. He does have a couple of concerns today. He has felt some right flank pain, especially with movement, and has also noted some chills for the past few days. He thinks he could have pulled a back muscle while working on his truck, but he does not remember anything specific. He also notes that he has not been following our recommendations regarding his water pill, and he has been taking 20 mg in the morning and 40 mg inthe evening, and we had wanted him to take 40 twice a day. He has been wearing his compressive stockings, and that keeps the swelling at bay from the knees down, but he states it just pushes it then above his knees. He also bumped his left leg, and he has a little bit of a sore on it now. Blood sugarsrange typically in the 160s to 220s. He did go up on his Lantus, usually to 76 but sometimes up to 80. He says his blood sugar will come down, and then it goes back up and it tends to depend on how late he eats at night. MEDICATIONS Advil 200 mg 2 tablets by mouth daily. Allopurinol 300 mg by mouth daily. Amlodipine 10 mg by mouth daily. Cialis 20 mg as needed. Dok Plus 2 tablets by mouth daily. Hydrochlorothiazide, will be increased to 50 mg by mouth daily. Hydrocortisone 2.5% applied 3 times a day as needed. Lantus 75 units subcu daily. Lasix 40 mg; he is going to take 1/2 pill in the morning and 1-1/2 tablets in the evening. Lisinopril 40 mg one 1 tablet by mouth 2 times a day. Metformin 1000 mg by mouth 2 times a day. Metoprolol 25 mg by mouth 2 times a day. Omeprazole 20 mg by mouth daily. Simvastatin 40 mg by mouth at bedtime. Victoza 1.8 mg subcutaneous daily. New medicine today is Zithromax 500 mg by mouth day 1, followed by 250 mg by mouth days 2 through 5. ALLERGIES Cipro. Influenza vaccine. SYSTEMS REVIEW CONSTITUTIONAL: Patient has had chills but denies any fever, sweats, increased fatigue, appetite change, temperature intolerance, or weight change. EYES: Patient denies double vision, blurred vision, pain or redness. ENT: Patient denies nasal drainage, congestion, nosebleeds, sinus problems, sores on lips or mouth, sore throat or changes in voice. RESPIRATORY: Patient denies cough, sputum production,shortness of breath, and wheezing. SKIN: Patient denies any sores or rash. CARDIOVASCULAR SYSTEM: Patient denies chest pain, history of heart murmur, DVT or PE. There is no edema or palpitations. GASTROINTESTINAL: Patient will intermittently have constipation and has dealt with hemorrhoids in the past. Otherwise, no problems with swallowing, heartburn, abdominal pain, nausea, vomiting, diarrhea, or black or bloody stools. GENITOURINARY: Patient denies problems urinating or frequency. There are no penile sores discharge, testicular pain or mass. MUSCULOSKELETAL: Patient has joint pain, swelling, as w ell as stiffness. He has the right flank pain, as noted above. No neck pain. NEUROLOGIC: Patient denies any headaches, history of head injury, blacking out, or confusion. No seizures, difficulty with vision, speech, walking, or weakness in arm or leg. ENDOCRINE: Patient has diabetes but has had no changes in hair, skin, or excessive thirst or urination. MENTAL HEALTH: Patient denies anxiety, depression, insomnia, or abuse. LYMPHATIC/HEMATOLOGIC: Patient denies masses, swelling, or unusual bruising or bleeding. PAST MEDICAL/SURGICAL HISTORY PAST MEDICAL HISTORY: 1. BPH. 2. Type 2 diabetes. 3. Eczema. 4. Atrial fibrillation. 5. Genital warts. 6. Hyperlipidemia. 7. Essential hypertension. 8. Erectile dysfunction. 9. Intertrigo. 10. Medically complicated obesity. 11. Urinary urge incontinence. 12. History of kidney stones. PAST SURGICAL HISTORY: 1. Vasectomy in 1988. 2. He has had a cystoscopy to address the kidney stones in 2009. FAMILY HISTORY Patient's mother at 72 from diabetes and also potentially had a blood clot. She also had a history of heart disease and kidney disease. Father is still living and has a history of CHF and hypertension as well as bad arthritis. Patient has no siblings. SOCIAL HISTORY Patient is to his , Juilssa, for 10 years. He has never been a smoker and does not drink any alcohol. 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 VITAL SIGNS Temperature 36.3. Pulse is 57 beats per minute. Blood pressure is 162/84, recheck is 155/73. Height is 185 cm, weight is 167 kg, BMI is 48.7. PHYSICAL EXAMINATION GENERAL: Alert and oriented. No acute distress. HEAD: Atraumatic. Normocephalic. EYES: Pupils equal, round, and reactive to light. Extraocular movements intact. EARS: Tympanic membrane clear with good light reflex bilaterally. NOSE: No nasal discharge. MOUTH: Oral mucosa moist. No oral lesions. THROAT: No oropharyngeal erythema. No tonsillar enlargement. NECK: Supple. No lymphadenopathy. No carotid bruits. Full range of motion. Trachea midline. No thyroid enlargement or mass. CARDIOVASCULAR: Bradycardia which is regular. S1 and S2. No murmurs, rubs, or gallops. LUNGS: Clear to auscultation bilaterally. No accessory muscle use. ABDOMEN: Soft. Nontender. Nondistended. No masses, rebound, or guarding. Normoactive bowel sounds. No pulsatile abdominal masses. EXTREMITIES: Patient has 3+ edema bilaterally with venous stasis changes. He has a Band-Aid over hisskin tear on the left leg. NEUROLOGIC: Cranial nerves II through XII intact. No focal deficits. PSYCHIATRIC: Mood stable. DIAGNOSTICS LABORATORY: Laboratory data obtained on July 27 shows a hemoglobin of 12.5; white blood cell count of 10,200; platelet count of 183,000. Sodium is 139.9, potassium 4.8, chloride 101, bicarb 30.1.BUN is 33, creatinine is 1.31. Blood sugar is 138. Alk phos 76. AST 22, ALT 22, total bilirubin 0.5.A1c was 8.6. X-RAYS: Chest x-ray today shows pulmonary venous hypertension, mild cardiomegaly with mild infiltrate in the left lung base. Right lung was clear. ELECTROCARDIOGRAM: EKG on July 13 showed atrial flutter with variable AV block, with a right bundle branch block and nonspecific ST-T wave abnormalities with a heart rate in the 50s. IMPRESSION/REPORT/PLAN 1. Preanesthesia medical exam. The patient does have a history of recently diagnosed atrial flutter.He otherwise has no symptoms of heart problems. He has already received cardiac clearance from Dr. Reyes, who evaluated him for the atrial flutter. From a pulmonary standpoint, the patient's sleep apnea score is 29, which puts him in the high-risk category for sleep apnea. He also seemed a little bit more out of breath today and is complaining of chills, and we got a chest x-ray which shows a lower lobe infiltrate. We are going to treat him with Zithromax and reassess in 1 week with an office visits and another chest x-ray. He is considered at increased risk for deep venous thrombosis based on his weight. Blood pressure continues to be mildly elevated. We are going to increase his hydrochlorothiazide to 50 mg a day and continue his othermedications. He was advised to hold his lisinopril the morning of his procedure. We are also going to alter his Lasix to 20 mg in the morning and 60 mg in theevening, which would also aid in bringing down his blood pressure as well as his lower extremity deila a. The patient is also a diabetic, and his sugars have not been well controlled with an A1c of 8.6. His Lantus dose was just recently increased. He was also advised to take only half of his Lantus doseprior to the procedure and to hold his metformin and his short-acting insulin. He will also hold hisVictoza. At this point, we will await reassessment in 1 week to follow up on patient's pneumonia andto see if he is medically optimized for this procedure. 2. Pneumonia. Patient has been complaining of chills and seemed a little bit more short of breath today. Chest x-ray revealed an early pneumonia. He is given a prescription for Zithromax, and we will plan on seeing him back in 1 week to reassess. 3. Benign essential hypertension. This continues to be mildly elevated. We are going to increase hisLasix to 20 and 60. We are also going to increase his hydrochlorothiazide to 50 mg daily. We will reassess in 1 week. Ready to learn. No apparent learning barriers were identified. Learning preferences include listening. Explained diagnosis and treatment plan. Patient expressed understanding of the content. Kevin Song M.D./caron Electronically Signed By: KEVIN KILGORE MD On: 08/24/2014 05:13 PM Modified by and Electronically Signed by: KEVIN KILGORE MD On: 08/24/2014 05:13 PM Source: [facility] MHSDOLBEYNONRADSYS Document Id: [id number] S FURNACE OPERATOR documented in this encounter Nursing Notes Selam Ferrell R.N. - 07/20/2014 1:34 PM CST holter monitor Email sent to Dr. Reyes that the holter monitor and EKG are available for him to review. Electronically Signed By: SELAM FERRELL RN On: 07/20/2014 01:35 PM Modified by and Electronically Signed by: SELAM FERRELL RN On: 07/20/2014 01:35 PM Source: [facility] POWERCHART Document Id: [id number] S FURNACE OPERATOR documented in this encounter Miscellaneous Notes Miscellaneous - Anne Marie Tuttle L.PPiliNPili - 08/10/2014 7:21 PM CST Ambulatory Vitals Height Weight Ambulatory Vitals Height Weight Entered On: 08/10/2014 19:21 GLASS FURNACE OPERATOR Performed On: 08/10/2014 19:21 GLASS FURNACE OPERATOR by ANNE MARIE TUTTLE LPN, RT Vitals/Ht/Wt Systolic Blood Pressure : 155 mmHg (HI) Diastolic Blood Pressure : 73 mmHg NIBP Mean : 100 mmHg BP Location : Left upper extremity Blood Pressure Cuff Size : Large Height : 185 cm(Converted to: 6 ft 1 inch(es), 73 inch(es)) ANNE MARIE TUTTLE LPN, RT - 08/10/2014 19:21 GLASS FURNACE OPERATOR Source: [facility] POWERCHART Document Id: [id number] GLASS FURNACE OPERATOR!8 S FURNACE OPERATOR Miscellaneous - Kevin Cobb M.D. - 08/10/2014 7:14 PM GLASS FURNACE OPERATOR Ambulatory Patient Summary [place] - [address] [id number] Visit Information Name: NOEMÍ LUNA [facility] Number: [id number] Current Date: 08/10/2014 19:14:13 Physicians Attending Provider: KEVIN KILGORE MD Primary [...] mg in morning, 60mg in evening leg swellingThis is a CHANGE Routed to [address] [address] hydrochlorothiazide (hydrochlorothiazide 25 mg oral tablet) 2 Tablet(s), Oral, once a day high bloodpressure This is a CHANGE hydrocortisone topical (hydrocortisone 2.5% topical lotion) 1 [...] the Following Medications: Medication list as of 08-10-14 19:14 Attention: If you have any medications at [...] Electronically Signed By: KEVIN KILGORE MD Signed On:10-AUG-2014 19:13:51 Your Allergies & Intolerances Substance Reaction Symptoms [...] Your Upcoming Appointments Date Time Location Provider 08/14/2014 09:00 [facility] Attention: Contact your local Clinic if further appointment detail needed. Your Goals/Additional instructions: Source: [facility] POWERCHART Document Id: [id number] S FURNACE OPERATOR Miscellaneous - Kevin Cobb M.D. - 08/10/2014 7:14 PM GLASS FURNACE OPERATOR Ambulatory Discharge Medication List [address] [place] [id number] Visit Information Name: NOEMÍ LUNA [facility] Number: [id number] Visit Date: 08/10/2014 19:14:11 Attending Provider: KEVIN KILGORE MD Primary Care [...] mg in morning, 60mg in evening leg swellingThis is a CHANGE Routed to [address] [address] hydrochlorothiazide (hydrochlorothiazide 25 mg oral tablet) 2 Tablet(s), Oral, once a day high bloodpressure This is a CHANGE hydrocortisone topical (hydrocortisone 2.5% topical lotion) 1 [...] the Following Medications: Medication list as of 08-10-14 19:14 Attention: If you have any medications at [...] Electronically Signed By: KEVIN KILGORE MD Signed On:10-AUG-2014 19:13:51 Additional Information: Source: [facility] POWERCHART Document Id: [id number] S FURNACE OPERATOR Miscellaneous - Anne Marie Tuttle, AlexandreP.N. - 08/10/2014 6:24 PM CST Ambulatory Vitals Height Weight Ambulatory Vitals Height Weight Entered On: 08/10/2014 18:26 GLASS FURNACE OPERATOR Performed On: 08/10/2014 18:24 GLASS FURNACE OPERATOR by ANNE MARIE TUTTLE LPN, RT Vitals/Ht/Wt Systolic Blood Pressure : 162 mmHg (>HHI) Diastolic Blood Pressure : 84 mmHg NIBP Mean : 110 mmHg BP Location : Left upper extremity Blood Pressure Cuff Size : Large Height : 185 cm(Converted to: 6 ft 1 inch(es), 73 inch(es)) ANNE MARIE TUTTLE LPN, - 08/10/2014 18:24 GLASS FURNACE OPERATOR Source: [facility] POWERCHART Document Id: [id number] GLASS FURNACE OPERATOR!8 S FURNACE OPERATOR Miscellaneous - Anne Marie Tuttle L.P.N. - 08/10/2014 6:20 PM CST Obstructive Sleep Apnea Obstructive Sleep Apnea Entered On: 08/10/2014 18:22 GLASS FURNACE OPERATOR Performed On: 08/10/2014 18:20 GLASS FURNACE OPERATOR by ANNE MARIE TUTTLE LPN, RT CELESTE Screening Known Obstructive Sleep Apnea : No - NOT diagnosed with CELESTE ANNE MARIE TUTTLE LPN, RT - 08/10/2014 18:20 GLASS FURNACE OPERATOR CELESTE Assessment Do you have high blood pressure or have you been told to take medication for high blood pressure? : Yes Frequency of Snoring HTN : Never Frequency of Gasping, Choking, Snorting HTN : Never Total Number of Historical Features HTN : 0 Neck Circumference - CELESTE - HTN : 48/49 Total Sleep Apnea Clinical Score HTN Calc : 29 ANNE MARIE TUTTLE LPN, - 08/10/2014 18:20 GLASS FURNACE OPERATOR [facility] POWER[facility] Document Id: [id number] GLASS FURNACE OPERATOR!10 S FURNACE OPERATOR Miscellaneous - Anne Marie Tuttle L.P.N. - 08/10/2014 6:11 PM CST Adult Bus Assistant Intake/History Adult Bus Assistant Intake/History Entered On: 08/10/2014 18:15 GLASS FURNACE OPERATOR Performed On: 08/10/2014 18:11 GLASS FURNACE OPERATOR by ANNE MARIE TUTTLE LPN, RT Intake Chief Complaint : preop. surgery gastricbypass in 08/[place]/2014 [place] Ambulatory Intake Additional Information : concerned about lower right side back discomfort Temperature Core : 36.3 DegC(Converted to: 97.3 DegF) (LOW) Peripheral Pulse Rate : 57 /min (LOW) Systolic Blood Pressure : 167 mmHg (>HHI) Diastolic Blood Pressure : 85 mmHg NIBP Mean : 112 mmHg BP Location : Left upper extremity Blood Pressure Cuff Size : Large Height : 185 cm(Converted to: 6 ft 1 inch(es), 73 inch(es)) Actual Weight : 167 kg(Converted to: 368 lb 3 oz) Weight Source : Standing scale Dosing Weight Clinic : 167 kg Clinic BSA : 2.93 Body Mass Index : 48.79 kg/m2 TONYA ANNE MARIE Lindsay LPN, RT - 08/10/2014 18:11 GLASS FURNACE OPERATOR General Info Information Given By : Patient Preferred Communication Mode : Verbal Languages : Romansh Is Patient Female and 13-50 no hysterectomy : No TONYA ANNE MARIE Lindsay LPN, RT - 08/10/2014 18:11 GLASS FURNACE OPERATOR Subjective Pain Symptoms : Yes TONYA ANNE MARIE Lindsay LPN, RT - 08/10/2014 18:11 GLASS FURNACE OPERATOR Pain Pain Assessment Grid Pain 1 Location : Lower back Laterality : Right ANNE MARIE TUTTLE Angélica ZURITA, RT - 08/10/2014 18:11 GLASS FURNACE OPERATOR Dependent Habits Tobacco Use/Currently Using : No Smoking Status : Never smoker ANNE MARIE TUTTLE LPN, RT - 08/10/2014 18:11 GLASS FURNACE OPERATOR Tobacco Use Grid Last Use : never TONYA ANNE MARIE Lindsay LPN, RT - 08/10/2014 18:11 GLASS FURNACE OPERATOR Caffeine Use Grid Caffeine Use : Current Type : Coffee, Soft drinks Frequency : Weekly Amount : soda- weekly; coffee- 1x/week TONYA ANNE MARIE Lindsay LPN, RT - 08/10/2014 18:11 GLASS FURNACE OPERATOR Recreational Drug Use Grid Drug Use : None TONYA ANNE MARIE Lindsay LPN, RT - 08/10/2014 18:11 GLASS FURNACE OPERATOR ID Screen Drug Resistant Organism : No Travel Within Last 21 Days : No TONYA ANNE MARIE Lindsay LPN, RT - 08/10/2014 18:11 GLASS FURNACE OPERATOR [facility] Document Id: [id number] GLASS FURNACE OPERATOR!47 S FURNACE OPERATOR documented in this encounter Plan of Treatment Not on filedocumented as of this encounter Visit Diagnoses Not on filedocumented in this encounter Additional Health Concerns Assessment Noted Time PHQ-9 Depression Total Score: 18 02/14/2013 9:53 AM CD T documented as of this encounter
--- OUTSIDE RECORDS SUMMARY | 2022-07-29 10:55 | XMS_ITS | Encounter Summary ---
:1960 Author Organization [facility] Address [address] [place] [address] Care Team Providers Name Role Phone Unavailable Primary Care Provider Unavailable Encounter Details Date Type Department Care Team Description 07/22/2013 Hospital Encounter HX [facility], Sebas Mora Ed.D., L.P. Social History Tobacco Use Types Packs/Day Years [...]
--- OUTSIDE RECORDS SUMMARY | 2022-07-29 10:55 | XMS_ITS | Encounter Summary ---
:1960 Author Organization [facility] Address [address] [place] [address] Care Team Providers Name Role Phone Unavailable Primary Care Provider Unavailable Encounter Details Date Type Department Care Team Description 08/30/2013 Hospital Encounter HX [facility] Cintia Aguirre M.D. [address] [place] [phone] (Wo rk) Social History Tobacco Use Types Packs/Day Years Used Date Smoking Tobacco: Never Assessed Sex Assigned at Date Recorded Not on file documented as of this encounter Last Filed Vital Signs Vital Sign Reading Time Taken Comments Blood Pressure 160/100 08/30/2013 11:22 AM DIRECTOR OF CONSERVATION Pulse 56 08/30/2013 11:15 AM DIRECTOR OF CONSERVATION Temperature - - Respiratory Rate - - Oxygen Saturation - - Inhaled Oxygen Concentration - - Weight 149 kg (329 lb 5.9 oz) 08/30/2013 11:15 AM DIRECTOR OF CONSERVATION Height 180 cm (5' 10.87) 08/30/2013 11:15 AM DIRECTOR OF CONSERVATION Body Mass Index 46.11 08/30/2013 11:15 AM DIRECTOR OF CONSERVATION documented in this encounter Progress Notes Cintia Cobb M.D. - 08/30/2013 11:02 AM CST [id number] CHIEF COMPLAINT/REASON FOR VISIT Followup blood pressure. HISTORY OF PRESENT ILLNESS Ed is a 53-year-old male who recently had his medical care transferred here. He is here tofollow up on his blood pressure. He reports that he ran out of his medications. When he last checkedit, it was 170 and he presents today to have his meds refilled. He states he is otherwise feeling good. He was previously having some lightheadedness before his hydrochlorothiazide was started and thatis better, but he is still a little off balance at times. He denies any headaches, changes of vision, chest pain or shortness of breath. He notes his blood sugars recently have been 75 in the morning and 336 in the evening. He had his eye exam updated. He reports he does not check his blood pressure at home. MEDICATIONS We are going to increase patient's lisinopril to 40 mg 2 times daily. ALLERGIES Cipro. Influenza vaccine. SYSTEMS REVIEW Review of systems as per history of present illness. VITAL SIGNS Temperature 36.2, pulse 56 beats per minute, blood pressure is 166/92, recheck is 160/100. Oxygen saturation is 96% on room air. Height is 180 cm. Weight is 129.4 kg. BMI is 46.1. PHYSICAL EXAMINATION GENERAL: Patient is alert and oriented, in no acute distress. CARDIOVASCULAR EXAM: Regular rate and rhythm. Normal S1 and S2. No murmurs, rubs or gallops. LUNGS: Clear to auscultation bilaterally. EXTREMITIES: No pedal edema. IMPRESSION/REPORT/PLAN Benign essential hypertension. Patient's blood pressure continues to be above goal. We are going to increase his lisinopril to 40 mg twice daily. We are going to continue his hydrochlorothiazide and his metoprolol. We will have him return in 1 week for a basic metabolic panel, see the nurse for a blood pressure check and then he will follow up with myself or Dyan Larios in month. Patient voicesunderstanding. PATIENT EDUCATION: Ready to learn No apparent learning barriers were identified Learning preferences include listening Explained diagnosis and treatment plan Patient/Child/Caregiver expressed understanding of the content Cintia Song M.D./hawa Electronically Signed By: CINTIA KILGORE MD On: 09/08/2013 02:46 PM Source: [facility] [id number] Document Id: [id number] CTOR OF CONSERVATION documented in this encounter Miscellaneous Notes Miscellaneous - Cintia Cobb M.D. - 08/30/2013 11:53 AM DIRECTOR OF CONSERVATION Ambulatory Patient Summary [facility] [address] [facility] [place] [address] Visit Information Name: LAZ LUNA [facility] Number: [id number] Current Date: 08/30/2013 11:53:32 Physicians Attending Provider: CINTIA KILGORE MD Primary Care Provider: DYAN LARIOS LAZ LUNA has been given the following [...] 1 jannie, Topical, three times a day insulin glargine (Lantus Solostar Pen 100 units/mL subcutaneous solution) 55 units, Subcutaneous, once a day liraglutide (Victoza) 1.8 mg, Subcutaneous, once a day lisinopril (lisinopril 40 mg oral tablet) 1 Tablet(s), Oral, two times a day This is a CHANGE Routedto [facility] , metFORMIN (metformin 1000 mg oral tablet) 1 [...] the Following Medications: Medication list as of 08-30-13 11:53 Attention: If you have any medications at [...] essential, NOS Active 12/28/2009 Erectile dysfunction* Active BPH without urinary obstruction Active Urge Incontinence Active Eczema Active Obesity NOS Active Ulcer of skin NOS Active DM II (or NOS), uncontrolled Active 12/28/2009 Optic 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 Active 07/14/2012 Fracture Closed Radial head Active 09/29/2012 09/30/12 left Genital warts Active Morbid Obesity (BMI > 40) (V85.4) Active 04/04/2013 Tinea pedis* Active Tinea cruris. Active Your Upcoming Appointments Date Time Location Reason Provider No Appointments found Attention: Contact your local Clinic if further appointment detail needed. Your Goals/Additional instructions: Source: [facility] POWERCHART Document Id: [id number] CTOR OF CONSERVATION Miscellaneous - Cintia Cobb M.D. - 08/30/2013 11:53 AM DIRECTOR OF CONSERVATION Ambulatory Depart Summary [address] [address] Visit Information Name: LAZ LUNA [facility] Number: [id number] Visit Date: 08/30/2013 11:53:28 Attending Provider: CINTIA KILGORE MD Primary Care Provider: DYAN LARIOS LUNA, ED has been given the following list [...] 1 jannie, Topical, three times a day insulin glargine (Lantus Solostar Pen 100 units/mL subcutaneous solution) 55 units, Subcutaneous, once a day liraglutide (Victoza) 1.8 mg, Subcutaneous, once a day lisinopril (lisinopril 40 mg oral tablet) 1 Tablet(s), Oral, two times a day This is a CHANGE [address] [address] metFORMIN (metformin 1000 mg oral [...] the Following Medications: Medication list as of 08-30-13 11:53 Attention: If you have any medications at home that are not on this list, DO NOT take them until youcontact your provider for clarification. Give a copy of your medication list to your primary care provider. Update your medication list any time medications or doses are changed and carry your medication list at all times in case of emergency. Additional Information: Source: [facility] POWERCHART Document Id: [id number] CTOR OF CONSERVATION Miscellaneous - Anne Marie Tuttle L.P.N. - 08/30/2013 11:22 AM CST Ambulatory Vitals Height Weight Ambulatory Vitals Height Weight Entered On: 08/30/2013 11:22 DIRECTOR OF CONSERVATION Performed On: 08/30/2013 11:22 DIRECTOR OF CONSERVATION by ANNE MARIE TUTTLE LPN, RT Vitals/Ht/Wt Systolic Blood Pressure : 160 mmHg (HI) Diastolic Blood Pressure : 100 mmHg (>HHI) NIBP Mean : 120 mmHg BP Location : Left upper extremity Blood Pressure Cuff Size : Large ANNE MARIE TUTTLE LPN, RT - 08/30/2013 11:22 DIRECTOR OF CONSERVATION Source: [facility] Document Id: [id number] DIRECTOR OF CONSERVATION!7 CTOR OF CONSERVATION Miscellaneous - Anne Marie Tuttle L.P.N. 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 Intake/History Entered On: 08/30/2013 11:18 DIRECTOR OF CONSERVATION Performed On: 08/30/2013 11:15 DIRECTOR OF CONSERVATION by ANNE MARIE TUTTLE LPN, RT Intake Chief Complaint : f/u BP Temperature Core : 36.2 DegC(Converted to: 97.2 DegF) (LOW) Peripheral Pulse Rate : 56 /min (LOW) Systolic Blood Pressure : 166 mmHg (>HHI) Diastolic Blood Pressure : 92 mmHg (>HHI) NIBP Mean : 117 mmHg BP Location : Left upper extremity Blood Pressure Cuff Size : Large SpO2 : 96 % Height : 180 cm(Converted to: 5 ft 11 inch(es), 70.87 inch(es)) Actual Weight : 149.4 kg(Converted to: 329 lb 6 oz) Dosing Weight Clinic : 149.4 kg Clinic BSA : 2.73 Body Mass Index : 46.11 kg/m2 ANNE MARIE TUTTLE LPN, - 08/30/2013 11:15 DIRECTOR OF CONSERVATION General Info Information Given By : Patient Preferred Communication Mode : Verbal Languages : Occitan ANNE MARIE TUTTLE LPN, RT - 08/30/2013 11:15 DIRECTOR OF CONSERVATION Subjective Pain Symptoms : No TONYA ANNE MARIE Lindsay LPN, RT - 08/30/2013 11:15 DIRECTOR OF CONSERVATION Dependent Habits Tobacco Use/Currently Using : No Smoking Status : Never smoker ANNE MARIE TUTTLE LPN, RT - 08/30/2013 11:15 DIRECTOR OF CONSERVATION Tobacco Use Grid Last Use : never ANNE MARIE TUTTLE LPN, RT - 08/30/2013 11:15 DIRECTOR OF CONSERVATION Caffeine Use Grid Caffeine Use : Current Type : Coffee, Soft drinks Frequency : Weekly Amount : soda- weekly; coffee- 1x/week ANNE MARIE TUTTLE LPN, RT - 08/30/2013 11:15 DIRECTOR OF CONSERVATION Recreational Drug Use Grid Drug Use : None ANNE MARIE TUTTLE LPN, RT - 08/30/2013 11:15 DIRECTOR OF CONSERVATION Source: [employer] Document Id: [id number] DIRECTOR OF CONSERVATION!37 CTOR OF CONSERVATION documented in this encounter Plan of Treatment Not on filedocumented as of this encounter Visit Diagnoses Not on filedocumented in this encounter Additional Health Concerns Assessment Noted Time PHQ-9 Depression Total Score: 18 02/14/2013 9:53 AM CD T documented as of this encounter
--- OUTSIDE RECORDS SUMMARY | 2022-07-29 10:55 | XMS_ITS | Encounter Summary ---
:1960 Author Organization [facility] Address [address] [place] [address] Care Team Providers Name Role Phone Unavailable Primary Care Provider Unavailable Encounter Details Date Type Department Care Team Description 11/18/2013 Hospital Encounter [facility]X [facility] Cintia lindquist M.D. [address] [place] [phone] (Wo rk) Social History Tobacco Use Types Packs/Day Years Used Date Smoking Tobacco: Never Assessed Sex Assigned at Date Recorded Not on file documented as of this encounter Last Filed Vital Signs Vital Sign Reading Time Taken Comments Blood Pressure 173/93 11/18/2013 4:19 PM CDT Pulse 50 11/18/2013 4:19 PM CDT Temperature - - Respiratory Rate - - Oxygen Saturation - - Inhaled Oxygen Concentration - - Weight - - Height - - Body Mass Index - - documented in this encounter Miscellaneous Notes Miscellaneous - Shirlene Abbott R.N. - 11/22/2013 10:08 AM CDT General Message Document Contains Addenda Addendum by CINTIA KILGORE MD on 22 November 2013 13:49:51 CDT From: CINTIA KILGORE MD To: SHIRLENE ABBOTT RN; Sent: 11/22/2013 13:49:51 CDT Subject: RE: General Message Thanks for the update. Cintia Addendum by SHIRLENE ABBOTT RN on 22 November 2013 10:11:53 CDT From: SHIRLENE ABBOTT RN To: CINTIA KILGORE MD; Sent: 11/22/2013 10:11:53 CDT Subject: FW: General Message A new meter got covered per pharmacy! From: SHIRLENE ABBOTT RN To: CINTIA KILGORE MD; SHIRLENE ABBOTT RN; Sent: 11/22/2013 10:08:51 CDT Subject: General Message Pt's current glucose meter broken and out of strips. Insurance indicated to us that Contour meter not covered, unsure if that meant all meter or that meter. Sent protocol script for new meter and strips to pts pharmacy, asked that one that is covered by insurance be dispensed. Pt unsure this is covered. Pt will talk to pharmacy. Source: [facility] POWERCHART Document Id: [id number] Electronically signed by Conversion, [facility] Smoking Pipe Repairer [id number] at 02/03/2017 4:58 AM CDT Miscellaneous - Nichelle Hollis - 11/21/2013 4:53 PM CDT PA: Chlorthalidone Document Contains Addenda Addendum by NICHELLE HOLLIS on 28 November 2013 14:55:08 CDT From: NICHELLE HOLLIS To: CINTIA KILGORE MD; Sent: 11/28/2013 14:55:08 CDT Subject: RE: PA: Chlorthalidone Yes, will do. I have tried to contact patient to advise, however, there is no answer and no VM option. I will continue trying. Addendum by CINTIA KILGORE MD on 28 November 2013 14:13:52 CDT From: CINTIA KILGORE MD To: NICHELLE HOLLIS; Sent: 11/28/2013 14:13:52 CDT Subject: RE: PA: Chlorthalidone Can we please contact patient and have him restart his hydrochlorothiazide at 50mg daily? Cintia Segura From: NICHELLE HOLLIS To: CINTIA KILGORE MD; Sent: 11/21/2013 16:53:28 CDT Subject: PA: Chlorthalidone Insurance has indicated that Chlorthlidone is not covered under patients plan. Covered alternatives include indapamide, Chlorathyazide, hydroclorathyzide, metolazone. Please advise. Source: Hum Document Id: [id number] Miscellwalter - Tiffany Owens, L.P.N. - 11/18/2013 4:24 PM CDT General Message From: TIFFANY OWENS LPN To: CINTIA KILGORE MD; Sent: 11/18/2013 16:24:01 CDT Subject: General Message lauren Bautista/silvestre repeated 173/93 large cuff, left arm Source: Hum Document Id: [id number] Miscellaneous - Tiffany Owens, L.P.N. - 11/18/2013 4:19 PM CDT Ambulatory Vitals Height Weight Ambulatory Vitals Height Weight Entered On: 11/18/2013 16:20 CDT Performed On: 11/18/2013 16:19 CDT by TIFFANY OWENS LPN Vitals/Ht/Wt Peripheral Pulse Rate : 50 /min (LOW) Heart Rhythm : Irregular Systolic Blood Pressure : 173 mmHg (>HHI) Diastolic Blood Pressure : 93 mmHg (>HHI) NIBP Mean : 120 mmHg BP Location : Left upper extremity Blood Pressure Cuff Size : Large TIFFANY OWENS LPN - 11/18/2013 16:19 CDT Source: Hum Document Id: [id number] CDT!9 Miscellaneous - Tiffany Owens L.P.N. - 11/18/2013 4:07 PM CDT General Message From: TIFFANY OWENS LPN To: CINTIA KILGORE MD; Sent: 11/18/2013 16:07:19 CDT Subject: General Message Dr. Song, pt.here for 152/82.Left arm ,large cuff .Pulse 48.slight irrg. Will repeat. thank youcolleen Source: Hum Document Id: [id number] Miscellaneous - Tiffany Owens L.P.N. - 11/18/2013 4:01 PM CDT Ambulatory Vitals Height Weight Ambulatory Vitals Height Weight Entered On: 11/18/2013 16:02 CDT Performed On: 11/18/2013 16:01 CDT by TIFFANY OWENS LPN Vitals/Ht/Wt Peripheral Pulse Rate : 48 /min (<LLOW) Heart Rhythm : Irregular Systolic Blood Pressure : 152 mmHg (HI) Diastolic Blood Pressure : 82 mmHg NIBP Mean : 105 mmHg BP Location : Left upper extremity Blood Pressure Cuff Size : TIFFANY Fraire LPN - 11/18/2013 16:01 CDT Source: Hum Document Id: [id number] CDT!9 documented in this encounter Plan of Treatment Not on filedocumented as of this encounter Visit Diagnoses Not on filedocumented in this encounter Additional Health Concerns Assessment Noted Time PHQ-9 Depression Total Score: 18 02/14/2013 9:53 AM CD T documented as of this encounter
--- OUTSIDE RECORDS SUMMARY | 2022-07-29 10:55 | XMS_ITS | Encounter Summary ---
:1960 Author Organization [facility] Address [address] [place] [address] Care Team Providers Name Role Phone Unavailable Primary Care Provider Unavailable Encounter Details Date Type Department Care Team Description 10/18/[address] [facility] Cintia Aguirre M.D. [address] [place] [phone] (Wo rk) Social History Tobacco Use Types Packs/Day Years Used Date Smoking Tobacco: Never Assessed Sex Assigned at Date Recorded Not on file documented as of this encounter Miscellaneous Notes Miscellaneous - Cintia Cobb M.D. - 10/18/2013 3:37 PM NURSING SURGICAL SERVICES DIRECTOR US results Document Contains Addenda Addendum by JOSIE CASTANEDA LPN, RT on 20 October 2013 15:48:07 NURSING SURGICAL SERVICES DIRECTOR Message left with to have patient call clinic. DL Addendum by JOSIE CASTANEDA LPN, RT on 19 October 2013 12:04:01 NURSING SURGICAL SERVICES DIRECTOR no answer/no machine. DL From: CINTIA KILGORE MD To: JOSIE CASTANEDA LPN RT; Sent: 10/18/2013 15:37:21 NURSING SURGICAL SERVICES DIRECTOR Subject: US results Please let Ed know that his kidney ultrasound looked okay. They did not see any narrowing of his arteries. We will follow up on his BP as discussed. Thanks, Cintia Source: [facility] POWERCHART Document Id: [id number] Electronically signed by Conversion, [facility] Toy Trains And Accessories Salesperson [id number] at 02/03/2017 3:31 PM CDT documented in this encounter Plan of Treatment Not on filedocumented as of this encounter Visit Diagnoses Not on filedocumented in this encounter Additional Health Concerns Assessment Noted Time PHQ-9 Depression Total Score: 18 02/14/2013 9:53 AM CD T documented as of this encounter
--- OUTSIDE RECORDS SUMMARY | 2022-07-29 10:55 | XMS_ITS | Encounter Summary ---
:1960 Author Organization [facility] Address [address] [place] [address] Care Team Providers Name Role Phone Unavailable Primary Care Provider Unavailable Encounter Details Date Type Department Care Team Description 06/01/[address] [facility] FAMILYPRA Bhumi Andrea, HAKEEM, C.N.P. [address] [place] [phone] (Wo rk) Social History Tobacco Use Types Packs/Day Years Used Date Smoking Tobacco: Never Assessed Sex Assigned at Date Recorded Not on file documented as of this encounter Last Filed Vital Signs Vital Sign Reading Time Taken Comments Blood Pressure 138/88 06/01/2013 9:29 AM CDT Pulse 60 06/01/2013 9:29 AM CDT Temperature - - Respiratory Rate 16 06/01/2013 9:29 AM CDT Oxygen Saturation - - Inhaled Oxygen Concentration - - Weight - - Height - - Body Mass Index - - documented in this encounter Progress Notes Steve Andrea APRN, C.N.P. - 06/01/2013 9:20 AM CDT [id number] CHIEF COMPLAINT/REASON FOR VISIT 1. Diabetes type 2, uncontrolled. 2. Hypertension. 3. Hyperlipidemia. 4. Urinary tract infection. 5. Benign prostatic hypertrophy. 6. Urge incontinence. HISTORY OF PRESENT ILLNESS Ed is here for recheck. 1. He has history of diabetes type 2, uncontrolled. He has been working with dietitian in [place]. He has discontinued glimepiride and is now on Victoza, along with 60 units of Lantus. He states he has missed a few doses of Lantus. 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 He states he has been working on weight loss and has lost a few pounds. He is hoping to undergo bariatric surgery. He has some classes he needs to attend in [place] andthen will be scheduling followup at [facility] again. He is due for A1c today. He is also due for dilated eye exam and will be scheduling that. 2. He has history of hypertension; blood pressure is at goal today. 3. He has history of hyperlipidemia. He is on simvastatin 40 mg daily. He is tolerating it without any adverse effects. He will be due for fasting lipids in July. 4. Urinary tract infection. He was seen in the Emergency Room on 05/28/2013, was started on Bactrim DS 2 times a day for 10 days. He has a couple of pills left. I would like to check a culture to make sure it is clear now. He was having hematuria. He has history of benign prostatic hypertrophy and urge incontinence. He has been seen by Urology. He does not want to have any followup with urology at this time. CURRENT MEDICATIONS See depart summary from today. ALLERGIES See EMR. SYSTEMS REVIEW Positive for that mentioned in the history of present illness and noted in the past medical history in the EMR. All other systems were reviewed and were negative. PREVENTIVE: Due for dilated eye exam, will schedule. VITAL SIGNS See EMR. PHYSICAL EXAMINATION Well-developed, well-nourished male in no acute distress. SKIN: Warm and dry. TMs: Clear. THROAT: Clear. NECK: Supple. No lymphadenopathy or thyromegaly. HEART: Regular rate and rhythm, S1, S2, no murmur. LUNGS: Clear to auscultation. ABDOMEN: Soft, nontender, no hepatosplenomegaly, no suprapubic tenderness. No CVA tenderness. EXTREMITIES: Warm, dry, 1+ peripheral edema. IMPRESSION/REPORT/PLAN 1. Diabetes type 2, uncontrolled. We will check A1c today. He will schedule for dilated eye exam. Continue working with the dietitian and will be following with [facility] in preparation for bariatric surgery. 2. Hypertension , currently controlled, no changes. 3. Hyperlipidemia. Return in July for fasting lipids and BMP. 4. Urinary tract infection. Finish the antibiotic. We will check urine culture today. 5-6. Benign prostatic hypertrophy and urge incontinence. Have recommended urological followup. He declines at this time. Steve Andrea CNP/jostin Electronically Signed By: STEVE ANDREA CNP On: 06/01/2013 03:13 PM Modified by and Electronically Signed by: STEVE ANDREA CNP On: 06/01/2013 03:13 PM Source: [facility] MHSDOLBEYNONRADSYS Document Id: [id number] documented in this encounter Miscellaneous Notes Miscellaneous - Hank Villafana L.P.NPili - 06/24/2013 10:21 AM CDT Colorectal cancer screening reminder Document Contains Addenda Addendum by MARY DIAZ LPN on 24 May 2014 15:50:32 CDT No longer a patient at [facility]. Addendum by MARCIAL CHAVEZ LPN on 24 May 2014 10:23:34 CDT From: MARCIAL CHAVEZ LPN To: MARY DIAZ LPN; Sent: 05/24/2014 10:23:34 CDT Show up: 05/24/2014 10:23:00 CDT Subject: RE: Colorectal cancer screening reminder From: HANK VILLAFANA LPN To: MARCIAL CHAVEZ; Sent: 06/24/2013 10:21:10 CDT Show up: 05/24/2014 10:20:00 CDT Subject: Colorectal cancer screening reminder Due Date/Time: 06/23/2014 10:21:00 CDT Please Remember to: Patient is due for colorectal cancer screening. Patient last completed the FIT test on 2013. This test needs to be done yearly. Please call patient and advise. PATIENT: ( ) Call Patient ( ) Ask Patient to ( ) ( ) Call Relative ( ) Schedule Patient ( ) ( ) Call for Senior Environmental Scientist ( ) Follow up on Results ( ) Other: PROVIDER: ( ) Call Physician ( ) Call Pharmacist ( ) Call Lab ( ) Other: Special Instructions: Comments: [facility] Document Id: [id number] Electronically signed by Conversion, [facility] Hydrologist [id number] at 02/04/2017 9:52 PM CDT Miscellaneous - Steve Andrea APRN, C.N.P. - 06/01/2013 10:36 AM CDT Schedule Follow-Up Visit 01 June 2013 [facility] [address] [place] [address] [place] [phone] Dear NOEMÍ LUNA, Thank you for choosing [facility] for your health care needs. You recently had laboratory work performed to assess your overall health. This letter contains the results of your testing and standard ranges to help explain the results. Great improvement, keep up the good work! I would recommend follow- up as we previously discussed. If you have questions prior to our appointment, please contact our office. Result Name Current Result Previous Result Normal Range Hgb A1c (%) (H) 9.0 06/01/2013 (H) 10.7 11/18/2012 (H) 9.8 07/14/2012 4.0 - 6.0 Sincerely, STEVE ANDREA [address] [facility] [place] [address] Electronic Signature Electronically Signed By: STEVE ANDREA CNP On: 01 June 2013 This document has images extracted. Source: [facility] Document Id: [id number] Electronically signed by Conversion, [facility] Hydrologist [id number] at 02/04/2017 9:52 PM CDT Miscellaneous - Steve Andrea APRN, C.N.P. - 06/01/2013 10:03 AM CDT Ambulatory Patient Summary [address] [facility] [address] Visit Information Name: NOEMÍ LUNA [facility] Number: [id number] Current Date: 06/01/2013 10:03:46 Physicians Attending Provider: STEVE ANDREA CNP Primary Care Provider: STEVE ANDREA CNP Your Medications Here is a list of your medications. It is important to take your medications as directed. Use a pillbox or chart to help remind you to take your medications. Please let your doctor or nurse know if you have problems taking your medications. Medication/Strength Dose Route Frequency Indications/Special Instructions/Comments/Notes miconazole topical (Lotrimin AF 2% topical powder) 1 jannie Topical two times a day to inside of socks/feet clotrimazole topical (Lotrimin 1% topical cream) 1 jannie Topical two times a day groin folds imiquimod topical (Aldara 5% topical cream) 1 jannie Topical 3 times a week for 16 weeks simvastatin (simvastatin 40 mg oral tablet) 40 mg Oral once a day (at bedtime) liraglutide (Victoza) 1.2 mg Subcutaneous once a day insulin glargine (Lantus Solostar Pen 100 units/mL subcutaneous solution) 60 units Subcutaneous oncea day metFORMIN (metformin 1000 mg oral tablet) 1,000 mg Oral two times a day with meals Patient is due for labs. metoprolol (metoprolol tartrate 50 mg oral tablet) 50 mg Oral two times a day omeprazole (omeprazole 20 mg oral delayed release capsule) 20 mg Oral once a day allopurinol (allopurinol 300 mg oral tablet) 300 mg Oral once a day furosemide (Lasix 20 mg oral tablet) 20 mg Oral once a day lisinopril (lisinopril 30 mg oral tablet) 45 mg Oral once a day hydrocortisone topical (hydrocortisone 2.5% topical lotion) 1 jannie Topical three times a day docusate-senna (Dok Plus) 2 tab(s) Oral once a day tadalafil (Cialis 20 mg oral tablet) 1 tab(s) Oral once a day as needed for erectile dysfunction Take as needed prior to anticipated sexual activity Attention: If you have any medications at home that are not on this list, DO NOT take them until youcontact your provider for clarification. Your Allergies & Intolerances Substance Reaction Symptoms [...] Upcoming Appointments Date Time Location Reason Provider 06/06/2013 09:00 [facility] 30 min. becky latham/ Chhaya Edward- pregastric bypass Chhaya Campos RD Your Goals/Additional instructions: Source: [facility] POWERCHART Document Id: [id number] Miscellaneous - Steve Andrea APRN, C.N.P. - 06/01/2013 10:03 AM CDT Ambulatory Depart Summary [address] [address] Visit Information Name: CARLYLE NOEMÍ [facility] Number: [id number] Visit Date: 06/01/2013 10:03:45 Attending Provider: STEVE ANDREA CNP Primary Care Provider: STEVE ANDREA HEAD SCORER NOEMÍ LUNA has been given the following list of medications: Your Medications It is important to take your medications as directed. Use a pill box or chart to help remind you to take your medications. Please let your doctor or nurse know if you have problems taking your medications. Medication/Strength Dose Route Frequency Indications/Special Instructions/Comments/Notes miconazole topical (Lotrimin AF 2% topical powder) 1 jannie Topical two times a day to inside of socks/feet clotrimazole topical (Lotrimin 1% topical cream) 1 jannie Topical two times a day groin folds imiquimod topical (Aldara 5% topical cream) 1 jannie Topical 3 times a week for 16 weeks simvastatin (simvastatin 40 mg oral tablet) 40 mg Oral once a day (at bedtime) liraglutide (Victoza) 1.2 mg Subcutaneous once a day insulin glargine (Lantus Solostar Pen 100 units/mL subcutaneous solution) 60 units Subcutaneous oncea day metFORMIN (metformin 1000 mg oral tablet) 1,000 mg Oral two times a day with meals Patient is due for labs. metoprolol (metoprolol tartrate 50 mg oral tablet) 50 mg Oral two times a day omeprazole (omeprazole 20 mg oral delayed release capsule) 20 mg Oral once a day allopurinol (allopurinol 300 mg oral tablet) 300 mg Oral once a day furosemide (Lasix 20 mg oral tablet) 20 mg Oral once a day lisinopril (lisinopril 30 mg oral tablet) 45 mg Oral once a day hydrocortisone topical (hydrocortisone 2.5% topical lotion) 1 jannie Topical three times a day docusate-senna (Dok Plus) 2 tab(s) Oral once a day tadalafil (Cialis 20 mg oral tablet) 1 tab(s) Oral once a day as needed for erectile dysfunction Take as needed prior to anticipated sexual activity Attention: If you have any medications at home that are not on this list, DO NOT take them until youcontact your provider for clarification. Additional Information: Source: [facility] POWERCHART Document Id: [id number] Miscellaneous - Marcial Chavez, LPiliPPiliN. - 06/01/2013 9:29 AM CDT Adult Head Trimmer Intake/History Adult Head Trimmer Intake/History Entered On: 06/01/2013 9:31 CDT Performed On: 06/01/2013 9:29 CDT by MARCIAL CHAVEZ Intake Chief Complaint : follow up from [facility] Temperature Core : 36.4 DegC(Converted to: 97.5 DegF) (LOW) Peripheral Pulse Rate : 60 /min Respiratory Rate : 16 /min Systolic Blood Pressure : 138 mmHg Diastolic Blood Pressure : 88 mmHg NIBP Mean : 105 mmHg MARCIAL CHAVEZ - 06/01/2013 9:29 CDT General Info Information Given By : Patient Languages : Faroese MARCIAL CHAVEZ - 06/01/2013 9:29 CDT Subjective Pain Symptoms : No MARCIAL CHAVEZ - 06/01/2013 9:29 CDT Dependent Habits Tobacco Use/Currently Using : No Smoking Status : Never smoker MARCIAL CHAVEZ - 06/01/2013 9:29 CDT Tobacco Use Grid Last Use : non MARCIAL CHAVEZ - 06/01/2013 9:29 CDT Caffeine Use Grid Caffeine Use : Current Type : Soft drinks Frequency : Daily Amount : 12-20 oz./day MARCIAL CHAVEZ - 06/01/2013 9:29 CDT Recreational Drug Use Grid Drug Use : None MARCIAL CHAVEZ - 06/01/2013 9:29 CDT Source: [facility] Document Id: [id number] CDT!29 Miscellaneous - Steve Andrea APRN, C.N.P. - 05/28/2013 10:10 AM CDT Quality Measures Quality Measures Entered On: 06/01/2013 10:10 CDT Performed On: 05/28/2013 10:10 CDT by STEVE ANDREA CNP Labs Outside Lab Creatinine (Serum) : 1.07 mg/dL Outside Lab Report Location : Scanned into EMR STEVE ANDREA CNP - 06/01/2013 10:10 CDT Source: [facility] Document Id: [id number] CDT!4 documented in this encounter Plan of Treatment Not on filedocumented as of this encounter Procedures Procedure Name Priority Date/Time Associated Comments Diagnosis BACTERIAL CULTURE, Routine 06/01/2013 10:24 AM Re sults for this AEROBIC, URINE CDT procedure are in the results section. HEMOGLOBIN A1C, B Routine 06/01/2013 10:07 AM Res ults for this CDT procedure are i n the results section. documented in this encounter Results Bacterial Culture, Aerobic, Urine (06/01/2013 10:24 AM CDT) Patholo gist Method Time Signature Bacterial POWERCHART Culture, Aerobic, Urine HXFinal See POWERCHART scanned/paper report. Test performed at [facility]. Specimen (Source) Anatomical Collection Method Collection Time Re ceived Time Location / / Volume Laterality Urine, Clean 06/01/2013 10:24 Catch AM CDT Steve Andrea APRN, C.N.P. LAB MICROBIOLOGY - GENERAL ORDERABLES Performing Organization Address City/State/ZIP Code Phon e Number POWERCHART (ABNORMAL) Hemoglobin A1c (06/01/2013 10:07 AM CDT) P athologist Signature Hemoglobin A1c, 9.0 (H) 4.0 - 6.0 POWERCHART B Specimen (Source) Anatomical Collection Method Collection Time Re ceived Time Location / / Volume Laterality Blood 06/01/2013 10:07 AM CDT Steve Andrea APRN, C.N.P. LAB BLOOD ADD-ON Performing Organization Address City/State/ZIP Code Phon e Number POWERCHART documented in this encounter Visit Diagnoses Not on filedocumented in this encounter Additional Health Concerns Assessment Noted Time PHQ-9 Depression Total Score: 18 02/14/2013 9:53 AM CD T documented as of this encounter
--- OUTSIDE RECORDS SUMMARY | 2022-07-29 10:55 | XMS_ITS | Encounter Summary ---
:1960 Author Organization [facility] Address [address] [place] [address] Care Team Providers Name Role Phone Unavailable Primary Care Provider Unavailable Encounter Details Date Type Department Care Team Description 06/06/2013 Hospital Encounter HX [facility] INTERNMED Aranza Ramirez PPiliAPili-Kelvin [address] [place] [phone] (Wo rk) Social History Tobacco Use Types [...] - - Weight 157 kg (345 lb 10.9 oz) 06/06/2013 9:02 AM CDT Height 181.7 cm (5' 11.54) 06/06/2013 9:02 AM CDT Body Mass Index 47.49 06/06/2013 9:02 AM CDT documented in this encounter Nursing Notes Chhaya Ramirez - 06/06/2013 12:00 AM CDT [id number] CHIEF COMPLAINT / REASON FOR VISIT Medical Nutrition Therapy follow-up for pre-gastric bypass surgery. Referral form complete. HISTORY OF PRESENT ILLNESS DIET RECALL: Patient is following a general diet. Fruit and vegetable intake per his statement is variable depending on what his packs him. In general he eats 2 to 3 meals a day. Sometimes he skips breakfast. Sometimes he skips lunch. Breakfast today was a bagel with cream cheese. Lunch varies depending on his work schedule or what his has packed. He is not currently tracking calories. He does estimate his daily caloric goal to be around 2400. He states that he is not going to keep a food log or diet recall himself. If his wants to do it she can, but he is not going to do it for himself. I also encouraged patient to be mindful of his portion sizes. He states he is working on [employer]. He drinks soda occasionally, but refuses to decrease the amount he drinks because he does not have it all the time and so when he does he wants to consume however big of a drink he wants. Water intake, he refuses to sip water. He states that this made him increasingly constipated. He refuses to chew food to an applesauce consistency. DIETARY SUPPLEMENTS: Per EMR. PHYSICAL ACTIVITY: ADLs, work. Again refuses to add any more exercise to his daily routine. REVIEW OF GOALS: From 05/02/2013. Goal 1, try to chew food to an applesauce consistency. 2. 2400 calories a day. 3. Sip liquids and increase total ounces of liquids he is drinking throughout the day, drinking only between meals. HOW OFTEN PATIENT FOLLOWING GOALS: Goals were met less than 50% of the time. CURRENT MEDICATIONS Reviewed EMR 06/06/2013. No changes. 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 TOBACCO USE: None. ALCOHOL USE: None. VITAL SIGNS HEIGHT: 181.7 cm. CURRENT BODY WEIGHT: 156.8 kg, body weight is up 2 kg since 05/02/2013. BMI: 47.49 kg/m IMPRESSION / REPORT / PLAN DIAGNOSTICS: Updated hemoglobin A1c was drawn on 06/01/2013 and is at 9%. IMPRESSION: Zpxlo-[id number]-old male here for pre-gastric bypass surgery education session. Patient is taking gastric bypass classes in [employer]. These start sometime in June. He estimates there are6 classes to take. Patient is very noncommittal to making any lifestyle changes regarding the gastric bypass surgery prior to surgery. Encouraged him to be mindful of portion sizes. Encouraged him to chew food more thoroughly. He refuses to make any significant lifestyle changes. Patient states he cannot do more than what he is already doing and so encouraged him to continue to be mindful of his portion sizes. Encouraged him to if possible track and log what he is eating and drinking. He states his will have to do this if he wants it done. Did encourage patient to follow up in approximately 1 month to further assess education prior to the surgery. Did encourage patient to discuss chewing foods. Encouraged him to discuss liquid intake and carbonation with [facility]. READINESS TO LEARN: Low interest. TEACHING METHOD USED: Verbal discussion. STAGE OF BEHAVIOR CHANGE: Pre-contemplation. EDUCATION OUTCOME: Verbalizes understanding. Patient selected behavioral objectives: 1) To follow up with [facility] regarding above goals. 2) 2400 calories a day. Keep a food diary and track or ask to help him with this. 3) Be mindful of portion sizes. PLAN / FOLLOW UP: Plan to see patient back in 1 month. Provided written material: None. ADMINISTRATIVE BILLING Total Counseling Time: 15 minutes. Chhaya Allred R.D., Andres./renate Electronically Signed By: CHHAYA ALLRED On: 06/07/2013 11:44 AM Source: [facility] MHSDOLBEYNONRADSYS Document Id: [id number] documented in this encounter Miscellaneous Notes Miscellaneous - Chhaya Ramirez - 06/06/2013 9:11 AM CDT Ambulatory Patient Summary [facility] [address] [place] [address] Visit Information Name: LAZ LUNA [facility] Number: [id number] Current Date: 06/06/2013 09:11:25 Physicians Attending Provider: CHHAYA ALLRED Primary Care Provider: STEVE ANDREA DISTRIBUTION SALES MANAGER Your Medications Here is a list of your medications. It is important to take your medications as directed. Use a pillbox or chart to help remind you to take your medications. Please let your doctor or nurse know if you have problems taking your medications. Medication/Strength Dose Route Frequency Indications/Special Instructions/Comments/Notes sulfamethoxazole-trimethoprim (Bactrim 400 mg-80 mg oral tablet) 2 tab(s) Oral two times a day miconazole topical (Lotrimin AF 2% topical powder) [...] once a day (at bedtime) liraglutide (Victoza) 1.8 mg Subcutaneous once a [...] Time Location Reason Provider No Appointments found Your Goals/Additional instructions: Source: [facility] POWERCHART Document Id: [id number] Miscellaneous - Chhaya Ramirez - 06/06/2013 9:11 AM CDT Ambulatory Depart Summary [facility] [address] [place] [address] Visit Information Name: LAZ LUNA [facility] Number: [id number] Visit Date: 06/06/2013 09:11:24 Attending Provider: CHHAYA ALLRED Primary Care Provider: STEVE ANDREA DISTRIBUTION SALES MANAGER LAZ LUNA has been given the following list of medications: Your Medications It is important to take your medications as directed. Use a pill box or chart to help remind you to take your medications. Please let your doctor or nurse know if you have problems taking your medications. Medication/Strength Dose Route Frequency Indications/Special Instructions/Comments/Notes sulfamethoxazole-trimethoprim (Bactrim 400 mg-80 mg oral tablet) 2 tab(s) Oral two times a day miconazole topical (Lotrimin AF 2% topical powder) [...] once a day (at bedtime) liraglutide (Victoza) 1.8 mg Subcutaneous once a [...] your provider for clarification. Additional Information: Source: [facility] POWERCHART Document Id: [id number] Miscellaneous - Chhaya Ramirez - 06/06/2013 9:02 AM CDT Adult Director Biomedical Engineering Intake/History Adult Director Biomedical Engineering Intake/History Entered On: 06/06/2013 9:04 CDT Performed On: 06/06/2013 9:02 CDT by CHHAYA ALLRED Intake Height : 181.7 cm(Converted to: 6 ft 0 inch(es), 71.54 inch(es)) Actual Weight : 156.8 kg(Converted to: 345 lb 11 oz) Dosing Weight Clinic : 156.8 kg Clinic BSA : 2.81 Body Mass Index : 47.49 kg/m2 CHHAYA ALLRED - 06/06/2013 9:02 CDT General Info Information Given By : Patient Languages : Belgian CHHAYA ALLRED - 06/06/2013 9:02 CDT Subjective Pain Symptoms : Yes CHHAYA ALLRED - 06/06/2013 9:02 CDT Pain Pain Assessment Grid Pain 1 Location : Generalized CHHAYA ALLRED - 06/06/2013 9:02 CDT Dependent Habits Tobacco Use/Currently Using : No Tobacco Use/Last 12 months : No Smoking Status : Never smoker CHHAYA ALLRED - 06/06/2013 9:02 CDT Tobacco Use Grid Last Use : non CHHAYA ALLRED - 06/06/2013 9:02 CDT Alcohol Use : No CHHAYA ALLRED - 06/06/2013 9:02 CDT Caffeine Use Grid Caffeine Use : Current Type : Coffee, Soft drinks Frequency : Daily Amount : 12-20 oz./day; 2 c.- 1x/week CHHAYA ALLRED - 06/06/2013 9:02 CDT Recreational Drug Use Grid Drug Use : None CHHAYA ALLRED - 06/06/2013 9:02 CDT Source: [facility] Document Id: [id number] CDT!33 documented in this encounter Plan of Treatment Not on filedocumented as of this encounter Visit Diagnoses Not on filedocumented in this encounter Additional Health Concerns Assessment Noted Time PHQ-9 Depression Total Score: 18 02/14/2013 9:53 AM CD T documented as of this encounter
--- OUTSIDE RECORDS SUMMARY | 2022-07-29 10:55 | XMS_ITS | Encounter Summary ---
:1960 Author Organization [facility] Address [address] [place] [address] Care Team Providers Name Role Phone Unavailable Primary Care Provider Unavailable Encounter Details Date Type Department Care Team Description 07/19/2013 Hospital Encounter HX [facility] [...]
--- OUTSIDE RECORDS SUMMARY | 2022-07-29 10:55 | XMS_ITS | Encounter Summary ---
:1960 Author Organization [facility] Address [address] [place] [address] Care Team Providers Name Role Phone Unavailable Primary Care Provider Unavailable Encounter Details Date Type Department Care Team Description 06/01/2013 Hospital Encounter HX [facility] FB FAMILYPRA Rosangela Vieira M.D. [address] [facility] [address], [address] [place], [place] [address] (Wo rk) Social History Tobacco Use Types Packs/Day Years Used Date Smoking Tobacco: Never Assessed Sex Assigned at Date Recorded Not on file documented as of this encounter Last Filed Vital Signs Vital Sign Reading Time Taken Comments Blood Pressure 138/84 06/01/2013 8:53 AM CDT Pulse 64 06/01/2013 8:53 AM CDT Temperature - - Respiratory Rate 24 06/01/2013 8:53 AM CDT Oxygen Saturation - - Inhaled Oxygen Concentration - - Weight 154 kg (339 lb 8.1 oz) 06/01/2013 8:53 AM CDT Height - - Body Mass Index 46.65 05/02/2013 8:34 AM CDT documented in this encounter Progress Notes Mariluz Vieira M.D. - 06/01/2013 8:44 AM CDT [id number] CHIEF COMPLAINT/REASON FOR VISIT Genital warts. HISTORY OF PRESENT ILLNESS Ed is a 52-year-old male into the clinic today to followup from our last visit on February 11, 2013, at which time we froze 1 spot on his left scrotum. Since then he has developed 1 other spot on the scrotum and would like both frozen today. He also has a little bit of a rash on his right groin and chronically dry feet and legs. He does have an appointment with Steve Andrea CNP today as well. CURRENT MEDICATIONS Please see EMR. ALLERGIES Please see EMR SYSTEMS REVIEW All systems reviewed and negative. PAST MEDICAL/SURGICAL HISTORY Please see EMR. SOCIAL HISTORY Please see EMR. FAMILY HISTORY Please see EMR. VITAL SIGNS Please see EMR. PHYSICAL EXAM In general, well-appearing, however morbidly obese male. My nurse Ynes was in during the exam. SKIN EXAM: He does have a red rash on the right groin consistent with tinea cruris. Also in between all the toes and the feet his skin is quite dry. He has his lower shins wrapped and states there are no ulcers there. He did not want me to look at them. On the scrotum he has on the left side two warts. These were both frozen with liquid nitrogen for 10 seconds x1. IMPRESSION/REPORT/PLAN 1. Genital warts. I can either recheck these in a month or he could consider Aldara cream. I did send a prescription for this. He would use the cream three times weekly at bedtime for 16 weeks. 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 If he cannot do it at bedtime, then he could do it another time during the day, leave it on 8 hours and then wash it off, and then I would recheck him inJanuary. 2. Tinea cruris, right groin. Lotrimin cream two times daily for 2 to 4 weeks. 3. Tinea pedis, shake Lotrimin powder in the socks or between the toes 1 to 2 times a day to help prevent tinea pedis. Mariluz Vieira M.D./jostin Electronically Signed By: MARILUZ VIEIRA MD On: 06/01/2013 04:41 PM Source: [facility] MHSDOLBEYNONRADSYS Document Id: [id number] documented in this encounter Miscellaneous Notes Miscellaneous - Mariluz Vieira M.D. - 06/01/2013 9:25 AM CDT Ambulatory Patient Summary [place] [id number] [facility] [place] [address] Visit Information Name: NOEMÍ LUNA [facility] Number: [id number] Current Date: 06/01/2013 09:25:12 Physicians Attending Provider: MARILUZ VIEIRA MD Primary Care Provider: STEVE ANDREA BREEDER HEN SERVICE TECHNICIAN Your Medications Here is a list of [...] (Lantus Solostar Pen 100 units/mL subcutaneous solution) 40 units Subcutaneous oncea day metFORMIN (metformin 1000 [...] tablet) 300 mg Oral once a day glimepiride (glimepiride 4 mg oral tablet) 8 mg Oral once a day with breakfast furosemide (Lasix 20 mg oral tablet) 20 [...] min. becky latham/ Chhaya Edward- pregastric bypass Andres JONES, Chhaya Fernandez Your Goals/Additional instructions: 1. If warts don't go away on the scrotum within 2 weeks then start ALDARA cream 3x weekly at bedtime. Apply, let dry, then wash off in the AM> Recheck in September then. 2. Right groin tinea- use lotrimin cream 2x daily for 2-4 weeks. 3. Toes- shake lotrimin powderin socks or between toes 1-2 x a day to help prevent tinea pedis. Source: [facility] POWERCHART Document Id: [id number] Miscellaneous - Mariluz Vieira M.D. - 06/01/2013 9:25 AM CDT Ambulatory Depart Summary [place] [id number] [place] [address] Visit Information Name: NOEMÍ LUNA [facility] Number: [id number] Visit Date: 06/01/2013 09:25:11 Attending Provider: MARILUZ VIEIRA MD Primary Care Provider: STEVE ANDREA BREEDER HEN SERVICE TECHNICIAN NOEMÍ LUNA has been given the following [...] (Lantus Solostar Pen 100 units/mL subcutaneous solution) 40 units Subcutaneous oncea day metFORMIN (metformin 1000 [...] tablet) 300 mg Oral once a day glimepiride (glimepiride 4 mg oral tablet) 8 mg Oral once a day with breakfast furosemide (Lasix 20 mg oral tablet) 20 [...] your provider for clarification. Additional Information: Source: [facility] POWERCHART Document Id: [id number] Miscellaneous - Ynes Dia L.P.N. - 06/01/2013 8:53 AM CDT Adult Laborer Aquatic Life Intake/History Adult Laborer Aquatic Life Intake/History Entered On: 06/01/2013 8:54 CDT Performed On: 06/01/2013 8:53 CDT by YNES DIA Intake Chief Complaint : shortness of breath. Still has warts Temperature Core : 36.5 DegC(Converted to: 97.7 DegF) Peripheral Pulse Rate : 64 /min Respiratory Rate : 24 /min (HI) Systolic Blood Pressure : 138 mmHg Diastolic Blood Pressure : 84 mmHg NIBP Mean : 102 mmHg BP Location : Right upper extremity Blood Pressure Cuff Size : Large Actual Weight : 154 kg(Converted to: 339 lb 8 oz) Weight Source : Standing scale Dosing Weight Clinic : 154 kg YNES DIA - 06/01/2013 8:53 CDT General Info Information Given By : Patient Languages : Senegalese YNES DIA - 06/01/2013 8:53 CDT Subjective Pain Symptoms : No YNES DIA - 06/01/2013 8:53 CDT Dependent Habits Tobacco Use/Currently Using : No Smoking Status : Never smoker YNES DIA - 06/01/2013 8:53 CDT Tobacco Use Grid Last Use : non YNES DIA - 06/01/2013 8:53 CDT Caffeine Use Grid Caffeine Use : Current Type : Soft drinks Frequency : Daily Amount : 12-20 oz./day YNES DIA - 06/01/2013 8:53 CDT Recreational Drug Use Grid Drug Use : None YNES DIA - 06/01/2013 8:53 CDT Source: [facility] POWERCHART Document Id: [id number] CDT!34 documented in this encounter Plan of Treatment Not on filedocumented as of this encounter Visit Diagnoses Not on filedocumented in this encounter Additional Health Concerns Assessment Noted Time PHQ-9 Depression Total Score: 18 02/14/2013 9:53 AM CD T documented as of this encounter
--- OUTSIDE RECORDS SUMMARY | 2022-07-29 10:55 | XMS_ITS | Encounter Summary ---
:1960 Author Organization [facility] Address [address] [place] [address] Care Team Providers Name Role Phone Unavailable Primary Care Provider Unavailable Encounter Details Date Type Department Care Team Description 02/11/2013 Hospital Encounter HX [facility] FB FAMILYPRA Rosangela Vieira M.D. [address] [facility], [address] [place], [place] [address] (Wo rk) Social History Tobacco Use Types Packs/Day Years Used Date Smoking Tobacco: Never Assessed Sex Assigned at Date Recorded Not on file documented as of this encounter Last Filed Vital Signs Vital Sign Reading Time Taken Comments Blood Pressure 152/88 02/11/2013 3:54 PM CDT Pulse 64 02/11/2013 3:54 PM CDT Temperature - - Respiratory Rate 20 02/11/2013 3:54 PM CDT Oxygen Saturation - - Inhaled Oxygen Concentration - - Weight 155 kg (341 lb 11.4 oz) 02/11/2013 3:54 PM CDT Height - - Body Mass Index 46.95 02/08/2013 9:08 AM CDT documented in this encounter Progress Notes Mariluz Vieira M.D. - 02/11/2013 3:39 PM CDT [id number] CHIEF COMPLAINT/REASON FOR VISIT Multiple issues. HISTORY OF PRESENT ILLNESS Ed is a 52-year-old male into the clinic today with a wart on his left side of the scrotum that he has had for a few months. He had another spot on the right scrotum that he removed himself several years ago and sometimes that bothers him. He also reports difficulty with erections. This has become increasingly difficult over the years. He does have a prescription for the Cialis. 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 Is currently on glimepiride 8 mg once a day, Byetta 10 mcg two times a day and Glucophage 1000 mg twice a day, and has been referred to [facility] for a recalcitrant A1c of over 10%. CURRENT MEDICATIONS Please see EMR. ALLERGIES Please see EMR. SYSTEMS REVIEW All systems reviewed and negative. PAST MEDICAL/SURGICAL HISTORY Please see EMR. SOCIAL HISTORY Please see EMR. FAMILY HISTORY Please see EMR. VITAL SIGNS Please see EMR. PHYSICAL EXAM GENERAL: Well appearing male in no acute distress. GENITOURINARY: He does have a skin tag on the left scrotum. This was frozen with liquid nitrogen for10 seconds x1. He has several blood vessels on the scrotum, benign. He has some scar tissue on the right scrotum. He is morbidly obese. During the exam he started talking about how he has a hard time getting hard, here let me try to rub it for you to see. I told him that would not be necessary and had him get dressed and then I came back into the room and we discussed causes of erectile dysfunction, including diabetes. IMPRESSION/REPORT/PLAN 1. Genital wart - treated with liquid nitrogen today, recheck in one month. 2. Impotence likely related to diabetes. Last A1c over 10%. High sugars can cause erectile dysfunction. We discussed he should make an appointment with his regular doctor to discuss how to best lower his blood sugars and then he told me he was referred to [facility] and so he will follow up with them. He was wondering about weight loss surgery. He also has other health conditions that can make the surgery somewhat higher risk including high blood pressure, high cholesterol and of course the diabetes.He will go for the referral at [facility]. Mariluz Vieira M.D./steven Electronically Signed By: MARILUZ VIEIRA MD On: 02/15/2013 11:53 AM Source: [facility] MHSDOLBEYNONRADSYS Document Id: [id number] documented in this encounter Miscellaneous Notes Miscellaneous - Mariluz Vieira M.D. - 02/11/2013 4:40 PM CDT Ambulatory Patient Summary [address] [place] [address] Visit Information Name: LAZ LUNA [facility] Number: [id number] Current Date: 02/11/2013 16:40:07 Physicians Attending Provider: MARILUZ VIEIRA MD Primary Care Provider: STEVE ANDREA [facility] Your Medications Here is a list of your medications. It is important to take your medications as directed. Use a pillbox or chart to help remind you to take your medications. Please let your doctor or nurse know if you have problems taking your medications. Medication/Strength Dose Route Frequency Indications/Special Instructions/Comments allopurinol (allopurinol 300 mg oral tablet) 300 mg Oral once a day *glimepiride (glimepiride 4 mg oral tablet) 8 mg Oral once a day with breakfast Exenatide (Byetta 10 mcg/dose-2.4ml Prefilled Pen) 10 mcg Subcutaneous two times a day within 60 minutes before morning and evening meals furosemide (Lasix 20 mg oral tablet) 20 mg Oral once a day metformin (metformin 1000 mg oral tablet) 1,000 mg Oral two times a day with meals simvastatin (simvastatin 40 mg oral tablet) 40 mg Oral once a day (at bedtime) lisinopril (lisinopril 30 mg oral tablet) 45 mg Oral once a day hydrocortisone topical (hydrocortisone 2.5% topical lotion) 1 jannie Topical three times a day omeprazole (omeprazole 20 mg oral delayed release capsule) 20 mg Oral once a day metoprolol (metoprolol tartrate 50 mg oral tablet) 50 mg Oral two times a day docusate-senna (Dok Plus) 2 tab(s) Oral once a day tadalafil (Cialis 20 mg oral tablet) 1 tab(s) Oral once a day as needed for erectile dysfunction Take as needed prior to anticipated sexual activity aspirin (aspirin 325 mg oral tablet) 1 tab(s) Oral once a day * You have let us know that you are not taking this medication as listed. Please talk with your primary care provider or the health care provider who prescribed the medication as soon as possible. Attention: If you have any medications at [...] Active 09/29/2012 09/30/12 left Genital warts Active Your Upcoming Appointments Date Time Location Reason Provider 03/16/2013 16:00 [facility] genital wart Mariluz Vieira MD Your Goals/Additional instructions: Source: [facility] POWERCHART Document Id: [id number] Miscellaneous - Mariluz Vieira M.D. - 02/11/2013 4:40 PM CDT Ambulatory Depart Summary [address] [address] Visit Information Name: LUNALAZ [facility] Number: [id number] Visit Date: 02/11/2013 16:40:06 Attending Provider: MARILUZ VIEIRA MD Primary Care Provider: STEVE ANDREA AUTOMATION ENGINEERING TECHNICIAN LAZ LUNA has been given the following list of medications: Your Medications It is important to take your medications as directed. Use a pill box or chart to help remind you to take your medications. Please let your doctor or nurse know if you have problems taking your medications. Medication/Strength Dose Route Frequency Indications/Special Instructions/Comments allopurinol (allopurinol 300 mg oral tablet) 300 mg Oral once a day *glimepiride (glimepiride 4 mg oral tablet) 8 mg Oral once a day with breakfast Exenatide (Byetta 10 mcg/dose-2.4ml Prefilled Pen) 10 mcg Subcutaneous two times a day within 60 minutes before morning and evening meals furosemide (Lasix 20 mg oral tablet) 20 mg Oral once a day metformin (metformin 1000 mg oral tablet) 1,000 mg Oral two times a day with meals simvastatin (simvastatin 40 mg oral tablet) 40 mg Oral once a day (at bedtime) lisinopril (lisinopril 30 mg oral tablet) 45 mg Oral once a day hydrocortisone topical (hydrocortisone 2.5% topical lotion) 1 jannie Topical three times a day omeprazole (omeprazole 20 mg oral delayed release capsule) 20 mg Oral once a day metoprolol (metoprolol tartrate 50 mg oral tablet) 50 mg Oral two times a day docusate-senna (Dok Plus) 2 tab(s) Oral once a day tadalafil (Cialis 20 mg oral tablet) 1 tab(s) Oral once a day as needed for erectile dysfunction Take as needed prior to anticipated sexual activity aspirin (aspirin 325 mg oral tablet) 1 tab(s) Oral once a day * You have let us know that you are not taking this medication as listed. Please talk with your primary care provider or the health care provider who prescribed the medication as soon as possible. Attention: If you have any medications at home that are not on this list, DO NOT take them until youcontact your provider for clarification. Additional Information: -1. Genital Wart: Treated with liquid nitrogen today. Recheck in 1 month. 2.Impotence- likely related to diabetes. Last A1c over 10%. High sugars cause erectile dysfunction. Please make an appointment with your regular doctor to discuss how to best lower your sugars Source: [facility] POWERCHART Document Id: [id number] Miscellaneous - Ashley Dia L.P.N. - 02/11/2013 3:54 PM CDT Adult Tube Mounter Intake/History Adult Tube Mounter Intake/History Entered On: 02/11/2013 16:00 CDT Performed On: 02/11/2013 15:54 CDT by ASHLEY DIA Intake Chief Complaint : warts in the [place] area that has been there for months. Temperature Core : 36.2 DegC(Converted to: 97.2 DegF) (LOW) Peripheral Pulse Rate : 64 /min Respiratory Rate : 20 /min Systolic Blood Pressure : 152 mmHg (HI) Diastolic Blood Pressure : 88 mmHg NIBP Mean : 109 mmHg BP Location : Right upper extremity Blood Pressure Cuff Size : Large Actual Weight : 155 kg(Converted to: 341 lb 11 oz) Weight Source : Standing scale Dosing Weight Clinic : 155 kg ASHLEY DIA - 02/11/2013 15:54 CDT General Info Information Given By : Patient Languages : Urdu ASHLEY DIA - 02/11/2013 15:54 CDT Subjective Pain Symptoms : No ASHLEY DIA - 02/11/2013 15:54 CDT Dependent Habits Tobacco Use/Currently Using : No Smoking Status : Never smoker ASHLEY DIA - 02/11/2013 15:54 CDT Tobacco Use Grid Last Use : non ASHLEY DIA - 02/11/2013 15:54 CDT Caffeine Use Grid Caffeine Use : Current Type : Soft drinks Frequency : Occasionally ASHLEY DIA - 02/11/2013 15:54 CDT Recreational Drug Use Grid Drug Use : None ASHLEY DIA - 02/11/2013 15:54 CDT [facility] Document Id: [id number] CDT!33 documented in this encounter Plan of Treatment Not on filedocumented as of this encounter Visit Diagnoses Not on filedocumented in this encounter
--- OUTSIDE RECORDS SUMMARY | 2022-07-29 10:55 | XMS_ITS | Encounter Summary ---
:1960 Author Organization [facility] Address [address] [place] [address] Care Team Providers Name Role Phone Unavailable Primary Care Provider Unavailable Encounter Details Date Type Department Care Team Description 10/18/[address] [facility] Cintia Aguirre M.D. [address] [place] [phone] (Wo rk) Social History Tobacco Use Types Packs/Day Years Used Date Smoking Tobacco: Never Assessed Sex Assigned at Date Recorded Not on file documented as of this encounter Last Filed Vital Signs Vital Sign Reading Time Taken Comments Blood Pressure 159/98 10/18/2013 10:56 AM DEPUTY BAILIFF Pulse 54 10/18/2013 10:41 AM DEPUTY BAILIFF Temperature - - Respiratory Rate 16 10/18/2013 10:41 AM DEPUTY BAILIFF Oxygen Saturation - - Inhaled Oxygen Concentration - - Weight 155 kg (342 lb 9.5 oz) 10/18/2013 10:41 AM DEPUTY BAILIFF Height - - Body Mass Index 46.4 09/30/2013 11:38 AM DEPUTY BAILIFF documented in this encounter Progress Notes Cintia Cobb M.D. - 10/18/2013 10:37 AM CST [id number] CHIEF COMPLAINT/REASON FOR VISIT Followup blood pressure HISTORY OF PRESENT ILLNESS Ed is a 53-year-old male who comes in today to follow up on his blood pressure. He states that he has had increased leg swelling, right greater than left, since increasing the Norvasc. He is not having any pain with it. He has noted some shortness of breath with activity and will also get some chest tightness. In regards to his blood sugars, he increased the Lantus as we had directed and isnow taking 58 units daily. He reports his blood sugar this morning was 170 and last evening it was 114. MEDICATIONS We are going to stop the hydrochlorothiazide and switch to chlorthalidone 50mg by mouth daily and weare going to stop the Norvasc. ALLERGIES Cipro and influenza vaccine. SYSTEMS REVIEW Review of systems as per history of present illness. Patient does take Advil approximately 2 pills daily. VITAL SIGNS Temperature 36. Pulse is 54 beats per minute, respiratory rate is 16 breaths per minute, blood pressure is 162/97 and recheck is 159/98. Oxygen saturation is 95% on room air. Weight is 155.4 kg. PHYSICAL EXAMINATION GENERAL: Patient is alert, oriented, and in no acute distress. NECK: Supple. No carotid bruits. HEART: Cardiovascular exam with regular rate and rhythm. Normal S1 and S2 with no murmurs, rubs or gallops. LUNGS: Clear to auscultation bilaterally. EXTREMITIES: There is 2+ edema bilaterally. His first and second toenails on both feet are dystrophic. He has 1+ dorsalis pedis pulse bilaterally. He has a scab over the DIP joint of his right second toe. Monofilament testing is normal. There are no other deformities. LABORATORY: Hemoglobin A1c is 7.65, potassium is 4. IMPRESSION/REPORT/PLAN 1. Type 2 diabetes. Patient's A1c is improving. We are going to continue our current medications. 2. Uncontrolled hypertension. Patient is on 4 agents although he is having side effects from the amlodipine. We are going to stop the hydrochlorothiazide and switch him to chlorthalidone at a higher dose. We are also going to stop the amlodipine with his swelling. We will plan on seeing him back in one week. If his blood pressure continues to be elevated, our next step will be switching his metoprolol to Coreg or labetalol to get a little bit more vasodilatory effect. We also are going to order a renal artery ultrasound to rule out renal artery stenosis playing a role in his resistant hypertension.We also advised patient to stop taking the ibuprofen as that can contribute to his hypertension. 3. Hyperkalemia. Potassium has normalized. Patient Education #1 Patient/parent/caregiver is ready to learn. No apparent learning barriers were identified. Learning preferences included listening. Explained diagnosis and treatment plan. Patient/parent/caregiver expressed understanding of the content. Cintia Song M.D./giovanny Electronically Signed By: CINTIA KILGORE MD On: 10/26/2013 04:23 PM Source: [facility] MHSDOLBEYNONRADSYS Document Id: [id number] TY BAILIFF documented in this encounter Miscellaneous Notes Osbaldo - Cintia Cobb M.D. - 10/18/2013 10:50 PM DEPUTY BAILIFF Quality Measures Quality Measures Entered On: 10/18/2013 22:51 DEPUTY BAILIFF Performed On: 10/18/2013 22:50 DEPUTY BAILIFF by CINTIA KILGORE MD Diabetes Date of Last Foot Exam : 10/18/2013 DEPUTY BAILIFF CINTIA KILGORE MD - 10/18/2013 22:50 DEPUTY BAILIFF Source: [facility] POWERCHART Document Id: [id number] DEPUTY BAILIFF!3 TY BAILIFF Lulycellaneous - Cintia Cobb M.D. - 10/18/2013 11:29 AM DEPUTY BAILIFF Ambulatory Patient Summary [id number] [place] [address] Visit Information Name: LAZ LUNA [facility] Number: [id number] Current Date: 10/18/2013 11:29:55 Physicians Attending Provider: CINTIA KILGORE MD Primary [...] tablet) 1 Tablet(s), Oral, once a day chlorthalidone (chlorthalidone 50 mg oral tablet) 1 Tablet(s), Oral, once a day New Routed to [address] [address] docusate-senna (Dok Plus) 2 Tablet(s), Oral, once a day hydrocortisone topical (hydrocortisone 2.5% topical lotion) 1 jannie, Topical, three times a day ibuprofen (Advil) 200 mg, Oral, 2 tabs daily insulin glargine (Lantus Solostar Pen 100 units/mL subcutaneous solution) 58 units, Subcutaneous, once a day liraglutide (Victoza) [...] sexual activity Stop Taking the Following Medications: amLODIPine (amLODIPine 5 mg oral tablet) hydrochlorothiazide (hydrochlorothiazide 25 mg oral tablet) Medication list as of 10-18-13 11:29 Attention: If you have any medications at [...] unknown Tinea cruris. Active 09/30/13 onset unknown Your Upcoming Appointments Date Time Location Reason Provider No Appointments found Attention: Contact your local Clinic if further appointment detail needed. Your Goals/Additional instructions: Source: [facility] POWERCHART Document Id: [id number] TY BAILIFF Miscellaneous - Cintia Cobb M.D. - 10/18/2013 11:29 AM DEPUTY BAILIFF Ambulatory Depart Summary [address] [address] Visit Information Name: LAZ LUNA [facility] Number: [id number] Visit Date: 10/18/2013 11:29:49 Attending Provider: CINTIA KILGORE MD Primary Care [...] tablet) 1 Tablet(s), Oral, once a day chlorthalidone (chlorthalidone 50 mg oral tablet) 1 Tablet(s), Oral, once a day New Routed to [address] [address] docusate-senna (Dok Plus) 2 Tablet(s), Oral, once a day hydrocortisone topical (hydrocortisone 2.5% topical lotion) 1 jannie, Topical, three times a day ibuprofen (Advil) 200 mg, Oral, 2 tabs daily insulin glargine (Lantus Solostar Pen 100 units/mL subcutaneous solution) 58 units, Subcutaneous, once a day liraglutide (Victoza) [...] sexual activity Stop Taking the Following Medications: amLODIPine (amLODIPine 5 mg oral tablet) hydrochlorothiazide (hydrochlorothiazide 25 mg oral tablet) Medication list as of 10-18-13 11:29 Attention: If you have any medications at home that are not on this list, DO NOT take them until youcontact your provider for clarification. Give a copy of your medication list to your primary care provider. Update your medication list any time medications or doses are changed and carry your medication list at all times in case of emergency. Additional Information: Source: [facility] POWERCHART Document Id: [id number] Anne Marie Hensley L.P.N. - 10/18/2013 11:00 AM CST Quality Measures Quality Measures Entered On: 10/18/2013 11:00 DEPUTY BAILIFF Performed On: 10/18/2013 11:00 DEPUTY BAILIFF by ANNE MARIE TUTTLE LPN, RT Diabetes Date of Last Eye Exam : 09/07/2013 DEPUTY BAILIFF ANNE MARIE TUTTLE LPN, RT - 10/18/2013 11:00 DEPUTY BAILIFF Source: [facility] Document Id: [id number] DEPUTY BAILIFF!3 TY BAILIFF Anne Marie Dasilva L.P.NPili - 10/18/2013 10:56 AM CST Ambulatory Vitals Height Weight Ambulatory Vitals Height Weight Entered On: 10/18/2013 10:56 DEPUTY BAILIFF Performed On: 10/18/2013 10:56 DEPUTY BAILIFF by ANNE MARIE TUTTLE LPN, RT Vitals/Ht/Wt Systolic Blood Pressure : 159 mmHg (HI) Diastolic Blood Pressure : 98 mmHg (>HHI) NIBP Mean : 118 mmHg BP Location : Right upper extremity Blood Pressure Cuff Size : Large ANNE MARIE TUTTLE LPN, RT - 10/18/2013 10:56 DEPUTY BAILIFF Source: [facility] Document Id: [id number] DEPUTY BAILIFF!7 TY BAILIFF Osbaldo - Anne Marie Tuttle L.P.NPili - 10/18/2013 10:52 AM CST Quality Measures Quality Measures Entered On: 10/18/2013 10:53 DEPUTY BAILIFF Performed On: 10/18/2013 10:52 DEPUTY BAILIFF by ANNE MARIE TUTTLE LPN, RT Diabetes Date of Last Foot Exam : 10/18/2013 DEPUTY BAILIFF ANNE MARIE TUTTLE LPN, RT - 10/18/2013 10:52 DEPUTY BAILIFF Source: [facility] Document Id: [id number] DEPUTY BAILIFF!3 TY BAILIFF Miscellaneous - Anne Marie Tuttle L.P.N. - 10/18/2013 10:41 AM CST Adult Farmworker General Intake/History Adult Farmworker General Intake/History Entered On: 10/18/2013 10:46 DEPUTY BAILIFF Performed On: 10/18/2013 10:41 DEPUTY BAILIFF by ANNE MARIE TUTTLE LPN, RT Intake Chief Complaint : f/u medication Ambulatory Intake Additional Information : concerned about lower leg swelling Temperature Core : 36.0 DegC(Converted to: 96.8 DegF) (LOW) Peripheral Pulse Rate : 54 /min (LOW) Respiratory Rate : 16 /min Systolic Blood Pressure : 162 mmHg (>HHI) Diastolic Blood Pressure : 97 mmHg (>HHI) NIBP Mean : 119 mmHg BP Location : Right upper extremity Blood Pressure Cuff Size : Large SpO2 : 95 % Oxygen Therapy : Room air Actual Weight : 155.4 kg(Converted to: 342 lb 10 oz) Weight Source : Standing scale Dosing Weight Clinic : 155.4 kg ANNE MARIE TUTTLE LPN, RT - 10/18/2013 10:41 DEPUTY BAILIFF General Info Information Given By : Patient Preferred Communication Mode : Verbal Languages : [place] Islander ANNE MARIE TUTTLE LPN, RT - 10/18/2013 10:41 DEPUTY BAILIFF Subjective Pain Symptoms : No ANNE MARIE TUTTLE LPN, RT - 10/18/2013 10:41 DEPUTY BAILIFF Dependent Habits Tobacco Use/Currently Using : No Smoking Status : Never smoker ANNE MARIE TUTTLE LPN, RT - 10/18/2013 10:41 DEPUTY BAILIFF Tobacco Use Grid Last Use : never ANNE MARIE TUTTLE LPN, RT - 10/18/2013 10:41 DEPUTY BAILIFF Caffeine Use Grid Caffeine Use : Current Type : Coffee, Soft drinks Frequency : Weekly Amount : soda- weekly; coffee- 1x/week ANNE MARIE TUTTLE LPN, RT - 10/18/2013 10:41 DEPUTY BAILIFF Recreational Drug Use Grid Drug Use : None ANNE MARIE TUTTLE LPN, RT - 10/18/2013 10:41 DEPUTY BAILIFF Source: [facility] POWERCHART Document Id: [id number] DEPUTY BAILIFF!38 TY BAILIFF documented in this encounter Plan of Treatment Not on filedocumented as of this encounter Visit Diagnoses Not on filedocumented in this encounter Additional Health Concerns Assessment Noted Time PHQ-9 Depression Total Score: 18 02/14/2013 9:53 AM CD T documented as of this encounter
--- OUTSIDE RECORDS SUMMARY | 2022-07-29 10:55 | XMS_ITS | Encounter Summary ---
:1960 Author Organization [facility] Address [address] [place] [address] Care Team Providers Name Role Phone Unavailable Primary Care Provider Unavailable Encounter Details Date Type Department Care Team Description 2013 Hospital Encounter HX [facility] Steve Andrea, Soumya PRN, C.N.P. [address] [place], [place] [phone] (Wo rk) Social History Tobacco Use Types Packs/Day Years Used Date Smoking Tobacco: Never Assessed Sex Assigned at Date Recorded Not on file documented as of this encounter Miscellaneous Notes Miscellaneous - Steve Andrea, TEST BORING CREW CHIEF, C.N.P. - 06/23/2013 10:56 AM CDT Normal Results Letter 23 June 2013 ED CARLYLE [address] [facility] [address] [facility] [id number] Dear ED CARLYLE, I am pleased to report that your results from the following diagnostic test(s) are normal. Please follow up with us as we discussed during your visit or sooner if you have any concerns. If you have questions or concerns, please do not hesitate to call our office. Result Name Current Result Normal Range FIT/Fecal Occult Bld-Connell Negative 2013 Negative - Sincerely, STEVE ANDREA [address] [place] [address] Electronic Signature Electronically Signed By: STEVE ANDREA CNP On: 23 June 2013 This document has images extracted. Source: [facility] POWERCHART Document Id: [id number] Electronically signed by Conversion, [facility] Car Repairer Apprentice [id number] at 02/04/2017 2:42 AM CDT documented in this encounter Plan of Treatment Not on filedocumented as of this encounter Procedures Procedure Name Priority Date/Time Associated Diagnosis Comme nts OCCULT BLOOD, QL, Routine 2013 10:00 AM Res ults for this IMMUNOCHEMICAL, F CDT procedure are in the results section. documented in this encounter Results Fecal Occult Blood, Colorectal Cancer Screen, Qualitative, Immunochemical (2013 10:00 AM CDT) P athologist Signature Occult Blood, Negative Negative POWERCHART Fecal Comment: Negative result. ??This test will not de tect upper gastrointestinal bleeding; the HemoQuant test ([id number])should be ordered if clinically indicated. Test Performed by: [place] [address] Field Interviewer: Benji roper III, M.D. Specimen (Source) Anatomical Collection Method Collection Time Re ceived Time Location / / Volume Laterality Stool 2013 10:00 AM CDT Steve Andrea APRN, C.N.P. LAB BODY FLUIDS AND STOOLS ORDERABLES Performing Organization Address City/State/ZIP Code Phon e Number POWERCHART documented in this encounter Visit Diagnoses Not on filedocumented in this encounter Additional Health Concerns Assessment Noted Time PHQ-9 Depression Total Score: 18 02/14/2013 9:53 AM CD T documented as of this encounter
--- OUTSIDE RECORDS SUMMARY | 2022-07-29 10:55 | XMS_ITS | Encounter Summary ---
:1960 Author Organization [facility] Address [address] [place] [address] Care Team Providers Name Role Phone Unavailable Primary Care Provider Unavailable Encounter Details Date Type Department Care Team Description 07/26/2013 Hospital Encounter HX [facility] Mehreen Perez M.S., R.N., A.C.N.S.-B.C. [address] [place] [phone] (Wo rk) Social History Tobacco Use [...]
--- OUTSIDE RECORDS SUMMARY | 2022-07-29 10:55 | XMS_ITS | Encounter Summary ---
:1960 Author Organization [facility] Address [address] [place] [address] Care Team Providers Name Role Phone Unavailable Primary Care Provider Unavailable Encounter Details Date Type Department Care Team Description 07/11/2013 Hospital Encounter HX [facility] Bhumi Andrea, HAKEEM, C.N.P. [address] [place] [phone] (Wo rk) Social History Tobacco Use Types Packs/Day Years Used Date Smoking Tobacco: Never Assessed Sex Assigned at Date Recorded Not on file documented as of this encounter Last Filed Vital Signs Vital Sign Reading Time Taken Comments Blood Pressure 170/96 07/11/2013 9:22 AM RESIDENT PHYSICIAN Pulse 68 07/11/2013 8:56 AM RESIDENT PHYSICIAN Temperature - - Respiratory Rate 16 07/11/2013 8:56 AM RESIDENT PHYSICIAN Oxygen Saturation - - Inhaled Oxygen Concentration - - Weight 154 kg (338 lb 6.5 oz) 07/11/2013 8:56 AM RESIDENT PHYSICIAN Height - - Body Mass Index 46.49 07/04/2013 3:11 PM CDT documented in this encounter Progress Notes Steve Andrea APRN, C.N.P. - 07/11/2013 8:43 AM CST [id number] CHIEF COMPLAINT/REASON FOR VISIT 1. Hypertension. 2. Diabetes type 2 uncontrolled. HISTORY OF PRESENT ILLNESS 1. Ed states he has been monitoring his blood pressure. He has been seen at [facility] for dietetic counseling for pregastric bypass planning. His blood pressure has been elevated on every occasion. He has checked it at the pharmacy it was 180/100 today is 170/96. He is currently on lisinopril 45 mg daily and metoprolol 50 mg twice daily. Today we discussed increasing his metoprolol and having him come back to have blood pressure checked early next week. 2. Diabetes type 2 uncontrolled. He states that he is due for A1c and results need to be sent to [facility]. I explained to him that [facility] can see his lab results in the EMR. MEDICATIONS See depart summary from today. ALLERGIES Cipro. Influenza virus vaccine. SYSTEMS REVIEW Positive for that mentioned in history of present illness and noted in the past medical history in the EMR all other systems reviewed and were negative. PREVENTIVE: Due for dilated eye exam will schedule. VITAL SIGNS See EMR. PHYSICAL EXAMINATION GENERAL: Well developed well-nourished male in no acute distress. SKIN: Warm and dry. ENT: TMs clear. Throat clear. NECK: Supple. No lymphadenopathy or thyromegaly. HEART: Regular rate and rhythm S1 S2 no murmur. LUNGS: Clear to auscultation. ABDOMEN: Soft, nontender, no hepatosplenomegaly. EXTREMITIES: Warm, dry, 1+ pitting edema. IMPRESSION/REPORT/PLAN 1. Hypertension. Increase metoprolol to 100 mg twice daily. Recheck blood pressure early next week. 2. Diabetes type 2 uncontrolled. He will have his A1c and BMP and lipids checked today. He does havehistory of hyperlipidemia and is currently on simvastatin 40 mg daily and tolerating that without any adverse effects. Steve Andrea CNP/navneet Electronically Signed By: STEVE ANDREA CNP On: 07/12/2013 01:31 PM Source: [facility] [id number] Document Id: [id number] DENT PHYSICIAN documented in this encounter Miscellaneous Notes Miscellaneous - Alysia Villafana R.N. - 07/19/2013 9:45 AM CST Medication Refill Msg Document Contains Addenda Addendum by ALYSIA VILLAFANA on 19 July 2013 11:47:50 RESIDENT PHYSICIAN done Addendum by STEVE ANDREA CNP on 19 July 2013 11:39:36 RESIDENT PHYSICIAN From: STEVE ANDREA CNP To: ALYSIA VILLAFANA; Sent: 07/19/2013 11:39:36 RESIDENT PHYSICIAN Subject: RE: Medication Refill Msg Yes, Ok to refill for 30 days from July 14, 2013. From: ALYSIA VILLAFANA To: STEVE ANDREA CNP; Sent: 07/19/2013 09:45:05 RESIDENT PHYSICIAN Subject: Medication Refill Msg Caller is: ( ) Patient ( ) Mother ( ) Father ( ) Spouse ( ) Daughter ( ) Son ( ) Pharmacy ( ) Other: Provider: Pharmacy: [facility] Name of Medications Needing Refill:can I fill metformin for this patient? Last Refill Date: Additional Information:see 07-15-13 phone message Last / Future Appointment:07-11-13 Disposition: ( ) Send to Pharmacy ( ) Call to Pharmacy ( ) Patient will order picker/assembler Script ( ) Mail Rx to Patient Source: [facility] POWERCHART Document Id: [id number] Electronically signed by Dayami [facility] Human Resources Recruiter [id number] at 02/04/2017 1:28 AM CDT Miscellaneous - Steve Andrea, HAKEEM, C.N.P. - 07/11/2013 2:11 PM CST Schedule Follow-Up Visit 11 July 2013 NOEMÍ LUNA [address] [place] [address] [address] [facility] [phone] Dear NOEMÍ LUNA, Thank you for choosing [facility] for your health care needs. You recently had laboratory work performed to assess your overall health. This letter contains the results of your testing and standard ranges to help explain the results. I would recommend follow-up as we previously discussed. If you have questions prior to our appointment, please contact our office. Result Name Current Result Normal Range Hgb A1c (%) (H) 8.0 07/11/2013 4.0 - 6.0 BUN (mg/dL) 20 07/11/2013 7 - 23 Creatinine (mg/dL) 1.0 07/11/2013 0.9 - 1.4 Potassium Lvl (mmol/L) 4.6 07/11/2013 3.5 - 4.8 Sodium Lvl (mmol/L) 140 07/11/2013 135 - 145 Chloride (mmol/L) (L) 99 07/11/2013 100 - 108 CO2 (mmol/L) (H) 31 07/11/2013 22 - 30 Calcium Lvl (mg/dL) 9.2 07/11/2013 8.5 - 10.5 Glucose Fasting (mg/dL) (H) 169 07/11/2013 70 - 99 Cholesterol (mg/dL) 135 07/11/2013 0 - 200 HDL (mg/dL) 46.0 07/11/2013 40.0 - 60.0 Trig (mg/dL) 145 07/11/2013 0 - 150 LDL Calculated (mg/dL) 60 07/11/2013 0 - 100 EGFR (MDRD) (mL/min) >60 07/11/2013 Sincerely, STEVE ANDREA [address] [place] [address] Electronic Signature Electronically Signed By: STEVE ANDREA CNP On: 11 July 2013 This document has images extracted. Source: [facility] POWERCHART Document Id: [id number] Miscellaneous - Steve Andrea, HAKEEM, C.N.P. - 07/11/2013 9:27 AM CST Ambulatory Patient Summary [address] [facility] [address] Visit Information Name: NOEMÍ LUNA [facility] Number: [id number] Current Date: 07/11/2013 09:27:48 Physicians Attending Provider: STEVE ANDREA CNP Primary Care Provider: STEVE ANDREA CNP NOEMÍ LUNA has been given the following [...] medications. Medication/Strength Dose Route Frequency Indications/Special Instructions/Comments/Notes metoprolol (metoprolol tartrate 100 mg oral tablet) 100 mg Oral two times a day hydrocortisone topical (hydrocortisone 2.5% topical lotion) 1 jannie Topical three times a day lisinopril (lisinopril 30 mg oral tablet) 45 mg Oral once a day simvastatin (simvastatin 40 mg oral tablet) 40 mg Oral once a day (at bedtime) liraglutide (Victoza) 1.8 mg Subcutaneous once a day insulin glargine (Lantus Solostar Pen 100 units/mL subcutaneous solution) 55 units Subcutaneous oncea day metFORMIN (metformin 1000 mg oral tablet) 1,000 mg Oral two times a day with meals Patient is due for labs. omeprazole (omeprazole 20 mg oral delayed release capsule) 20 mg Oral once a day allopurinol (allopurinol 300 mg oral tablet) 300 mg Oral once a day docusate-senna (Dok [...] Upcoming Appointments Date Time Location Reason Provider 08/02/2013 08:00 [facility] 30 min. becky latham/ Chhaya N.- pregastric bypass Chhaya Campos RD Attention: Contact your local Clinic if further appointment detail needed. Your Goals/Additional instructions: Source: [facility] POWERCHART Document Id: [id number] DENT PHYSICIAN Miscellaneous - Steve Andrea APRN, C.N.P. - 07/11/2013 9:27 AM CST Ambulatory Depart Summary [id number] [place] [address] Visit Information Name: CARLYLE NOEMÍ [facility] Number: [id number] Visit Date: 07/11/2013 09:27:47 Attending Provider: STEVE ANDREA CNP Primary Care Provider: STEVE ANDREA CNP NOEMÍ LUNA has been given the following list of medications: Your Medications It is important to take your medications as directed. Use a pill box or chart to help remind you to take your medications. Please let your doctor or nurse know if you have problems taking your medications. Medication/Strength Dose Route Frequency Indications/Special Instructions/Comments/Notes metoprolol (metoprolol tartrate 100 mg oral tablet) 100 mg Oral two times a day hydrocortisone topical (hydrocortisone 2.5% topical lotion) 1 jannie Topical three times a day lisinopril (lisinopril 30 mg oral tablet) 45 mg Oral once a day simvastatin (simvastatin 40 mg oral tablet) 40 mg Oral once a day (at bedtime) liraglutide (Victoza) 1.8 mg Subcutaneous once a day insulin glargine (Lantus Solostar Pen 100 units/mL subcutaneous solution) 55 units Subcutaneous oncea day metFORMIN (metformin 1000 mg oral tablet) 1,000 mg Oral two times a day with meals Patient is due for labs. omeprazole (omeprazole 20 mg oral delayed release capsule) 20 mg Oral once a day allopurinol (allopurinol 300 mg oral tablet) 300 mg Oral once a day docusate-senna (Dok [...] your provider for clarification. Additional Information: Source: [facility] MopedCHART Document Id: [id number] DENT PHYSICIAN Miscellaneous - Steve Andrea APRN, C.N.P. - 07/11/2013 9:22 AM CST Ambulatory Vitals Height Weight Ambulatory Vitals Height Weight Entered On: 07/11/2013 9:22 RESIDENT PHYSICIAN Performed On: 07/11/2013 9:22 RESIDENT PHYSICIAN by STEVE ANDREA CNP Vitals/Ht/Wt Systolic Blood Pressure : 170 mmHg (>HHI) Diastolic Blood Pressure : 96 mmHg (>HHI) NIBP Mean : 121 mmHg STEVE ANDREA CNP - 07/11/2013 9:22 RESIDENT PHYSICIAN Source: [facility] Noster Mobile Document Id: [id number] RESIDENT PHYSICIAN!5 DENT PHYSICIAN Miscellaneous - Marcial Chavez L.P.NPili - 07/11/2013 8:56 AM CST Adult Diesel Power Mechanic Intake/History Adult Diesel Power Mechanic Intake/History Entered On: 07/11/2013 8:59 RESIDENT PHYSICIAN Performed On: 07/11/2013 8:56 RESIDENT PHYSICIAN by MARCIAL CHAVEZ Intake Chief Complaint : high blood pressure Temperature Core : 36.6 DegC(Converted to: 97.9 DegF) Peripheral Pulse Rate : 68 /min Respiratory Rate : 16 /min Systolic Blood Pressure : 128 mmHg Diastolic Blood Pressure : 82 mmHg NIBP Mean : 97 mmHg Actual Weight : 153.5 kg(Converted to: 338 lb 7 oz) Dosing Weight Clinic : 153.5 kg MARCIAL CHAVEZ - 07/11/2013 8:56 RESIDENT PHYSICIAN General Info Information Given By : Patient Languages : Bangladeshi MARCIAL CHAVEZ - 07/11/2013 8:56 RESIDENT PHYSICIAN Subjective Pain Symptoms : No MARCIAL CHAVEZ - 07/11/2013 8:56 RESIDENT PHYSICIAN Dependent Habits Tobacco Use/Currently Using : No Smoking Status : Never smoker MARCIAL CHAVEZ - 07/11/2013 8:56 RESIDENT PHYSICIAN Tobacco Use Grid Last Use : non MARCIAL CHAVEZ - 07/11/2013 8:56 RESIDENT PHYSICIAN Caffeine Use Grid Caffeine Use : Current Type : Coffee, Soft drinks Frequency : Weekly Amount : soda- weekly; coffee- 1x/week MARCIAL CHAVEZ - 07/11/2013 8:56 RESIDENT PHYSICIAN Recreational Drug Use Grid Drug Use : None MARCIAL CHAVEZ - 07/11/2013 8:56 RESIDENT PHYSICIAN Source: [facility] POWERCHART Document Id: [id number] RESIDENT PHYSICIAN!31 DENT PHYSICIAN documented in this encounter Plan of Treatment Not on filedocumented as of this encounter Procedures Procedure Name Priority Date/Time Associated Comments Diagnosis ALBUMIN, RANDOM, U Routine 07/11/2013 9:42 Result s for this AM RESIDENT PHYSICIAN procedure are i n the results section. ASPARTATE Routine 07/11/2013 9:41 Results for this AMINOTRANSFERASE (AST), AM RESIDENT PHYSICIAN proc edure are in S/P the results section. documented in this encounter Results (ABNORMAL) Microalbumin, Random, Urine (07/11/2013 9:42 AM RESIDENT PHYSICIAN) P athologist Signature HXU Albumin % 282 MGDL POWERCHART Creatinine, 126 MGDL POWERCHART Random, U Albumin/Creati 224 (H) 0 - 17 POWERCHART nine Ratio MGGM Specimen (Source) Anatomical Collection Method Collection Time Re ceived Time Location / / Volume Laterality Urine 07/11/2013 9:42 AM RESIDENT PHYSICIAN Kelvin Grier APRNNPiliPPili LAB URINE ORDERABLES Performing Organization Address City/State/ZIP Code Phon e Number POWERCHART AST (Aspartate Aminotransferase) (07/11/2013 9:41 AM RESIDENT PHYSICIAN) [facility] Time Signature Aspartate 20 8 - 48 POWERCHART Aminotransferase UNITL (AST), S Specimen (Source) Anatomical Collection Method Collection Time Re ceived Time Location / / Volume Laterality Blood 07/11/2013 9:41 AM RESIDENT PHYSICIAN Steve Andrea APRN C.N.P. LAB BLOOD ADD-ON Performing Organization Address City/State/ZIP Code Phon e Number POWERCHART documented in this encounter Visit Diagnoses Not on filedocumented in this encounter Additional Health Concerns Assessment Noted Time PHQ-9 Depression Total Score: 18 02/14/2013 9:53 AM CD T documented as of this encounter
--- OUTSIDE RECORDS SUMMARY | 2022-07-29 10:55 | XMS_ITS | Encounter Summary ---
:1960 Author Organization [facility] Address [address] [place] [address] Care Team Providers Name Role Phone Unavailable Primary Care Provider Unavailable Encounter Details Date Type Department Care Team Description 06/28/2013 Hospital Encounter HX [facility] Mehreen Perez M.S., R.N., A.C.N.S.-B.C. [address] [place] [phone] (Wo rk) Social History Tobacco Use [...]
--- OUTSIDE RECORDS SUMMARY | 2022-07-29 10:55 | XMS_ITS | Encounter Summary ---
:1960 Author Organization [facility] Address [address] [place] [address] Care Team Providers Name Role Phone Unavailable Primary Care Provider Unavailable Encounter Details Date Type Department Care Team Description 07/26/2013 Hospital Encounter [facility]X [facility] Marino Larios P.A.-C., P.A. [address] [place] [phone] (Wo rk) Social History Tobacco Use Types Packs/Day Years Used Date Smoking Tobacco: Never Assessed Sex Assigned at Date Recorded Not on file documented as of this encounter Last Filed Vital Signs Vital Sign Reading Time Taken Comments Blood Pressure 172/93 07/26/2013 11:50 AM FINANCIAL AID OFFICER Pulse 56 07/26/2013 11:01 AM FINANCIAL AID OFFICER Temperature - - Respiratory Rate 14 07/26/2013 11:01 AM FINANCIAL AID OFFICER Oxygen Saturation - - Inhaled Oxygen Concentration - - Weight 153 kg (337 lb 8.4 oz) 07/26/2013 11:01 AM FINANCIAL AID OFFICER Height 183 cm (6' 0.05) 07/26/2013 11:01 AM FINANCIAL AID OFFICER Body Mass Index 45.72 07/26/2013 11:01 AM FINANCIAL AID OFFICER documented in this encounter Progress Notes Dyan Larios - 07/26/2013 10:45 AM CST [id number] CHIEF COMPLAINT/REASON FOR VISIT This is a 53-year-old male seen today new to our clinic after having recently been fired from the [facility]. HISTORY OF PRESENT ILLNESS He states that he has been going through a program through the bariatric clinic in [place] to get set up for gastric bypass. He had a meeting with a dietitian and that is when the problem started. Hestates that he did not get along with the dietitian in [place]. He does have one dietitian visit left of his 6 and he actually states that he has this scheduled in [place] and plans to follow up down there for that tomorrow. He also sees someone in behavioral health for something similar to the [facility]. This is in [place] most recently he has been having some trouble with his blood pressure. He was seen by his other provider on 07/11/2013 and had his blood pressure medications changed. He was instructed to return for followup to see how he was doing. He has been on lisinopril 45 mg daily and metoprolol 100 mg 1 tablet twice daily to try to get his blood pressure under better control, however, he just increased the metoprolol, he just doubled the metoprolol, and it does not seem to be making much difference. He states that he is feeling okay. He has had good followup with his diabetes. He is pretty up to date on his diabetic score card, however, he has not had his eyes checked recently. He was reminded about this. MEDICATIONS Current medications include: Allopurinol 300 mg 1 tablet daily. Cialis 20 mg 1 tablet as needed. Docusate senna 2 tablets daily as needed. Hydrocortisone topical cream daily as needed. Lantus 55 units subcutaneous at night. Lisinopril 45 mg daily. Metformin 1000 mg twice daily. Metoprolol tartrate 100 mg 1 tablet twice daily. Omeprazole 20 mg 1 tablet daily. Simvastatin 40 mg 1 tablet daily. Victoza 1.8 mg subcutaneous daily. ALLERGIES Cipro. Influenza vaccine. PAST MEDICAL/SURGICAL HISTORY Past medical history and surgical history are reviewed in the EMR. VITAL SIGNS Temperature is 36.4, heart rate 56, respiratory rate 14. Blood pressure is 160/90, 172/93 on recheck. Height 183 cm, weight 153.1 kg. PHYSICAL EXAMINATION GENERAL: He is alert, interactive and cooperative. Appears to be well-nourished, well-hydrated, in no acute distress. HEENT: Head is normocephalic, atraumatic. TMs are clear with normal landmarks, normal light reflex. Canals are clear. Sclerae and conjunctive are clear. Nares are non-congested. Oral mucosa is pink andmoist. Posterior pharynx is nonerythematous. Tonsils are not enlarged. No exudate. NECK: Neck is supple; no lymphadenopathy. LUNGS: Clear to auscultation bilaterally. No wheezes. HEART: Regular rate and rhythm. IMPRESSION/REPORT/PLAN Hypertension. PLAN: I added some hydrochlorothiazide 25 mg 1 tablet daily to see if we can try to get that blood pressure down. I requested that he return to have it rechecked even in a couple of days to make sure that it is improving. Certainly we will need to see him back within a month to determine how his bloodpressure is. It looks as though he has got a bit of work to do with his diabetes as well. Hopefully,he can fulfill the requirements needed for the bariatric program and consider having his bariatric surgery. Dyan Larios P.A.-C./hawa Electronically Signed By: DYAN LARIOS On: 08/02/2013 09:44 AM Source: [facility] MHSDOLBEYNONRADSYS Document Id: [id number] NCIAL AID OFFICER documented in this encounter Miscellaneous Notes Miscellaneous - Dyan Larios - 07/26/2013 12:15 PM CST Ambulatory Patient Summary [address] [address] Visit Information Name: LAZ LUNA [facility] Number: [id number] Current Date: 07/26/2013 12:15:01 Physicians Attending Provider: DYAN LARIOS Primary Care Provider: DYAN LARIOS LAZ LUNA [...] medications. Medication/Strength Dose Route Frequency Indications/Special Instructions/Comments/Notes hydrochlorothiazide (hydrochlorothiazide 25 mg oral tablet) 25 mg Oral once a day metFORMIN (metformin 1000 mg oral [...] subcutaneous solution) 55 units Subcutaneous oncea day omeprazole (omeprazole 20 mg oral delayed release capsule) 20 mg Oral once a day allopurinol (allopurinol 300 mg oral tablet) 300 mg Oral once a day docusate-senna (Dok Plus) 2 tab(s) Oral once a day *tadalafil (Cialis 20 mg oral tablet) 1 tab(s) [...] appointment detail needed. Your Goals/Additional instructions: Source: [facility] POWERCHART Document Id: [id number] NCIAL AID OFFICER Miscellaneous - Dyan Larios - 07/26/2013 12:15 PM CST Ambulatory Depart Summary [address] [address] Visit Information Name: LAZ LUNA [facility] Number: [id number] Visit Date: 07/26/2013 12:15:00 Attending Provider: DYAN LARIOS Primary Care Provider: DYAN LARIOS LAZ LUNA has been given the following list of medications: Your Medications It is important to take your medications as directed. Use a pill box or chart to help remind you to take your medications. Please let your doctor or nurse know if you have problems taking your medications. Medication/Strength Dose Route Frequency Indications/Special Instructions/Comments/Notes hydrochlorothiazide (hydrochlorothiazide 25 mg oral tablet) 25 mg Oral once a day metFORMIN (metformin 1000 mg oral [...] subcutaneous solution) 55 units Subcutaneous oncea day omeprazole (omeprazole 20 mg oral delayed release capsule) 20 mg Oral once a day allopurinol (allopurinol 300 mg oral tablet) 300 mg Oral once a day docusate-senna (Dok Plus) 2 tab(s) Oral once a day *tadalafil (Cialis 20 mg oral tablet) 1 tab(s) [...] your provider for clarification. Additional Information: Source: [facility] Sharethrough Document Id: [id number] NCIAL AID OFFICER Lulycellwalter - Tali Torres L.P.N. - 07/26/2013 11:50 AM CST Ambulatory Vitals Height Weight Ambulatory Vitals Height Weight Entered On: 07/26/2013 11:51 FINANCIAL AID OFFICER Performed On: 07/26/2013 11:50 FINANCIAL AID OFFICER by TALI TORRES Vitals/Ht/Wt Systolic Blood Pressure : 172 mmHg (>HHI) Diastolic Blood Pressure : 93 mmHg (>HHI) NIBP Mean : 119 mmHg BP Location : Right upper extremity Blood Pressure Cuff Size : Large TALI TORRES - 07/26/2013 11:50 FINANCIAL AID OFFICER Source: [facility] Sharethrough Document Id: [id number] FINANCIAL AID OFFICER!7 NCIAL AID OFFICER Lulycellwalter - Tali Torres L.P.N. - 07/26/2013 11:01 AM CST Adult Reading Interventionist Intake/History Adult Reading Interventionist Intake/History Entered On: 07/26/2013 11:07 FINANCIAL AID OFFICER Performed On: 07/26/2013 11:01 FINANCIAL AID OFFICER by TALI TORRES Intake Chief Complaint : new patient establish care Temperature Core : 36.4 DegC(Converted to: 97.5 DegF) (LOW) Peripheral Pulse Rate : 56 /min (LOW) Respiratory Rate : 14 /min Heart Rhythm : Regular Systolic Blood Pressure : 160 mmHg (HI) Diastolic Blood Pressure : 90 mmHg (HI) NIBP Mean : 113 mmHg BP Location : Right upper extremity Blood Pressure Cuff Size : Large Height : 183 cm(Converted to: 6 ft 0 inch(es), 72.05 inch(es)) Actual Weight : 153.1 kg(Converted to: 337 lb 8 oz) Weight Source : Standing scale Dosing Weight Clinic : 153.1 kg Clinic BSA : 2.79 Body Mass Index : 45.72 kg/m2 TALI TORRES - 07/26/2013 11:01 FINANCIAL AID OFFICER General Info Information Given By : Patient Languages : Lao TALI TORRES - 07/26/2013 11:01 FINANCIAL AID OFFICER Subjective Pain Symptoms : No TALI TORRES - 07/26/2013 11:01 FINANCIAL AID OFFICER Dependent Habits Tobacco Use/Currently Using : No Smoking Status : Never smoker Alcohol Use : No TALI TORRES - 07/26/2013 11:01 FINANCIAL AID OFFICER Source: [email or web address] Document Id: [id number] FINANCIAL AID OFFICER!27 NCIAL AID OFFICER documented in this encounter Plan of Treatment Not on filedocumented as of this encounter Visit Diagnoses Not on filedocumented in this encounter Additional Health Concerns Assessment Noted Time PHQ-9 Depression Total Score: 18 02/14/2013 9:53 AM CD T documented as of this encounter
--- OUTSIDE RECORDS SUMMARY | 2022-07-29 10:55 | XMS_ITS | Encounter Summary ---
:1960 Author Organization [facility] Address [address] [place] [address] Care Team Providers Name Role Phone Unavailable Primary Care Provider Unavailable Encounter Details Date Type Department Care Team Description 10/18/2013 Hospital Encounter HX [facility] Cintia Cobb M.D. [address] [place] [phone] (Wo rk) Social History Tobacco Use Types Packs/Day Years Used Date Smoking Tobacco: Never Assessed Sex Assigned at Date Recorded Not on file documented as of this encounter Plan of Treatment Not on filedocumented as of this encounter Procedures Procedure Name Priority Date/Time Associated Diagnosis Comme nts POTASSIUM, S/P Routine 10/18/2013 10:37 AM Result s for this MECHANIC SENIOR procedure are i n the results section. HEMOGLOBIN A1C, B Routine 10/18/2013 10:37 AM Res ults for this MECHANIC SENIOR procedure are i n the results section. documented in this encounter Results Potassium (10/18/2013 10:37 AM MECHANIC SENIOR) P athologist Signature Potassium, S 4.0 3.6 - 4.8 POWERCHART MMOLL Specimen (Source) Anatomical Collection Method Collection Time Re ceived Time Location / / Volume Laterality Blood 10/18/2013 10:37 AM MECHANIC SENIOR Cintia Copeland M.D. LAB BLOOD ADD-ON Performing Organization Address City/State/ZIP Code Phon e Number POWERCHART (ABNORMAL) Hemoglobin A1c (10/18/2013 10:37 AM MECHANIC SENIOR) Analysis Performed At Patho logist Time Signature Hemoglobin A1c, 7.65 (H) 4.00 - POWERCHART B 6.00 Specimen (Source) Anatomical Collection Method Collection Time Re ceived Time Location / / Volume Laterality Blood 10/18/2013 10:37 AM MECHANIC SENIOR Cintia Copeland M.D. LAB BLOOD ADD-ON Performing Organization Address City/State/ZIP Code Phon e Number POWERCHART documented in this encounter Visit Diagnoses Not on filedocumented in this encounter Additional Health Concerns Assessment Noted Time PHQ-9 Depression Total Score: 18 02/14/2013 9:53 AM CD T documented as of this encounter
--- OUTSIDE RECORDS SUMMARY | 2022-07-29 10:55 | XMS_ITS | Encounter Summary ---
:1960 Author Organization [facility] Address [address] [place] [address] Care Team Providers Name Role Phone Unavailable Primary Care Provider Unavailable Encounter Details Date Type Department Care Team Description 07/11/2013 Hospital Encounter HX [facility] Cindy Moy, Soumya PRN, C.N.P. [address] [place], [place] [phone] (Wo rk) Social History Tobacco Use Types Packs/Day Years Used Date Smoking Tobacco: Never Assessed Sex Assigned at Date Recorded Not on file documented as of this encounter Plan of Treatment Not on filedocumented as of this encounter Procedures Procedure Name Priority Date/Time Associated Diagnosis Comme nts LIPID PANEL, S Routine 07/11/2013 9:41 AM Results for this SPINNING BATH PATROLLER procedure are i n the results section. BASIC METABOLIC Routine 07/11/2013 9:41 AM Result s for this PANEL, S/P SPINNING BATH PATROLLER procedure are i n the results section. documented in this encounter Results (ABNORMAL) BMP (Basic Metabolic Panel) (07/11/2013 9:41 AM SPINNING BATH PATROLLER) P athologist Signature BUN (Blood Urea 20 7 - 23 POWERCHART Nitrogen), S MGDL Creatinine 1.0 0.9 - 1.4 POWERCHART MGDL Potassium, S 4.6 3.5 - 4.8 POWERCHART MMOLL Sodium, S 140 135 - 145 POWERCHART MMOLL Chloride, S 99 (L) 100 - 108 POWERCHART MMOLL CO2 Total 31 (H) 22 - 30 POWERCHART MMOLL Calcium, Total, 9.2 8.5 - 10.5 POWERCHART S MGDL eGFR >60 MLMIN POWERCHART Black/ Glucose, 169 (H) 70 - 99 POWERCHART Fasting, S MGDL HXeGFR (MDRD) >60 MLMIN POWERCHART Specimen (Source) Anatomical Collection Method Collection Time Re ceived Time Location / / Volume Laterality Blood 07/11/2013 9:41 AM SPINNING BATH PATROLLER Cindy Moy APRN, C.N.P. LAB BLOOD ADD-ON Performing Organization Address City/State/ZIP Code Phon e Number POWERCHART Lipid Panel (07/11/2013 9:41 AM SPINNING BATH PATROLLER) Analysis Performed At [facility] Time Signature Cholesterol, Total 135 0 - 200 POWERCHART MGDL HX HDL 46.0 40.0 - POWERCHART 60.0 MGDL Triglycerides 145 0 - 150 POWERCHART MGDL Calculated LDL 60 0 - 100 POWERCHART MGDL Specimen (Source) Anatomical Collection Method Collection Time Re ceived Time Location / / Volume Laterality Blood 07/11/2013 9:41 AM SPINNING BATH PATROLLER Cindy Moy APRN, C.N.P. LAB BLOOD ADD-ON Performing Organization Address City/State/ZIP Code Phon e Number POWERCHART documented in this encounter Visit Diagnoses Not on filedocumented in this encounter Additional Health Concerns Assessment Noted Time PHQ-9 Depression Total Score: 18 02/14/2013 9:53 AM CD T documented as of this encounter
--- OUTSIDE RECORDS SUMMARY | 2022-07-29 10:55 | XMS_ITS | Encounter Summary ---
:1960 Author Organization [facility] Address [address] [place] [address] Care Team Providers Name Role Phone Unavailable Primary Care Provider Unavailable Encounter Details Date Type Department Care Team Description 07/11/2013 Hospital Encounter HX [facility] Angélica Jolley M.D. [address] [place], [place] [phone] (Wo rk) Social History Tobacco Use Types Packs/Day Years Used Date Smoking Tobacco: Never Assessed Sex Assigned at Date Recorded Not on file documented as of this encounter Plan of Treatment Not on filedocumented as of this encounter Procedures Procedure Name Priority Date/Time Associated Diagnosis Comme nts HEMOGLOBIN A1C, B Routine 07/11/2013 9:41 AM Resu lts for this GELATIN DYNAMITE PACKING OPERATOR procedure are i n the results section. documented in this encounter Results (ABNORMAL) Hemoglobin A1c (07/11/2013 9:41 AM GELATIN DYNAMITE PACKING OPERATOR) athologist Signature Hemoglobin A1c, 8.0 (H) 4.0 - 6.0 POWERCHART B Specimen (Source) Anatomical Collection Method Collection Time Re ceived Time Location / / Volume Laterality Blood 07/11/2013 9:41 AM GELATIN DYNAMITE PACKING OPERATOR Renetta Jolley M.D. LAB BLOOD ADD-ON Performing Organization Address City/State/ZIP Code Phon e Number POWERCHART documented in this encounter Visit Diagnoses Not on filedocumented in this encounter Additional Health Concerns Assessment Noted Time PHQ-9 Depression Total Score: 18 02/14/2013 9:53 AM CD T documented as of this encounter
--- OUTSIDE RECORDS SUMMARY | 2022-07-29 10:55 | XMS_ITS | Encounter Summary ---
:1960 Author Organization [facility] Address [address] [place] [address] Care Team Providers Name Role Phone Unavailable Primary Care Provider Unavailable Encounter Details Date Type Department Care Team Description 07/26/2013 Hospital Encounter HX [facility] HLT Provider, Elder robledo Social History Tobacco Use Types Packs/Day Years Used Date Smoking Tobacco: Never Assessed Sex Assigned at Date Recorded Not on file documented as of this encounter Miscellaneous Notes Miscellaneous - Conversion, Historical Provider Ser - 07/26/2013 12:00 AM SPORTS COORDINATOR [id number] LETTER July 26, 2013 RE: Laz Luna 1960 EMR: [id number] TO WHOM IT MAY CONCERN: This letter is to inform you that the above named individual has completed the eight session [facility] Program for weight management and to fulfill the requirements of [facility] gastric bypass surgery process. This individual was in attendance at all eight sessions and participated in the group discussions. Sincerely, Sebas Soares Asp, Ed.D., L.P. Amy Monsour, [facility] Source: [facility] [id number] Document Id: [id number] documented in this encounter Plan of Treatment Not on filedocumented as of this encounter Visit Diagnoses Not on filedocumented in this encounter Additional Health Concerns Assessment Noted Time PHQ-9 Depression Total Score: 18 02/14/2013 9:53 AM CD T documented as of this encounter
--- OUTSIDE RECORDS SUMMARY | 2022-07-29 10:55 | XMS_ITS | Encounter Summary ---
:1960 Author Organization [facility] Address [address] [place] [address] Care Team Providers Name Role Phone Unavailable Primary Care Provider Unavailable Encounter Details Date Type Department Care Team Description 09/13/2013 Hospital Encounter HX [facility] Song FlCintia domingo M.D. [address] [place] [phone] (Wo rk) Social History Tobacco Use Types Packs/Day Years Used Date Smoking Tobacco: Never Assessed Sex Assigned at Date Recorded Not on file documented as of this encounter Last Filed Vital Signs Vital Sign Reading Time Taken Comments Blood Pressure 142/98 09/13/2013 1:47 PM AVIONICS SYSTEMS ENGINEER Pulse - - Temperature - - Respiratory Rate - - Oxygen Saturation - - Inhaled Oxygen Concentration - - Weight - - Height - - Body Mass Index - - documented in this encounter Miscellaneous Notes Miscellaneous - Harvey Packer LPiliP.N. - 09/13/2013 2:10 PM CST General Message From: HARVEY PACKER LPN To: CINTIA KILGORE MD; Sent: 09/13/2013 14:10:09 AVIONICS SYSTEMS ENGINEER Subject: General Message S. Patient came in for nurse visit only for B/P check B. HTN recently had lisinopril increased to 40mg. po twice daily. Did have labs drawn today. A. 142/102 and 144/98. Denies headache, denies nosebleed, denies tinitis and denies eye pressure patient states I got to get back to work Did share he is having some pedal edema in right lower leg. Worse at the end of the day. R. Please call him with any questions or concerns. [phone] Verbal permission given to this nurse, you make speak with his . Magali (he calls her Fabiola). Source: [facility] [employer] Document Id: [id number] Electronically signed by Dayami [facility] Swati [id number] at 02/03/2017 2:37 PM CDT Miscellaneous - Harvey Packer L.P.N. - 09/13/2013 1:47 PM CST Ambulatory Vitals Height Weight Ambulatory Vitals Height Weight Entered On: 09/13/2013 13:47 AVIONICS SYSTEMS ENGINEER Performed On: 09/13/2013 13:47 AVIONICS SYSTEMS ENGINEER by HARVEY PACKER LPN Vitals/Ht/Wt Systolic Blood Pressure : 142 mmHg (HI) Diastolic Blood Pressure : 102 mmHg (>HHI) NIBP Mean : 115 mmHg HARVEY PACKER LPN - 09/13/2013 13:47 AVIONICS SYSTEMS ENGINEER [facility] Document Id: [id number] AVIONICS SYSTEMS ENGINEER!5 NICS SYSTEMS ENGINEER Miscellaneous - Harvey Packer L.P.N. - 09/13/2013 1:47 PM CST Ambulatory Vitals Height Weight Ambulatory Vitals Height Weight Entered On: 09/13/2013 13:47 AVIONICS SYSTEMS ENGINEER Performed On: 09/13/2013 13:47 AVIONICS SYSTEMS ENGINEER by HARVEY PACKER LPN Vitals/Ht/Wt Systolic Blood Pressure : 144 mmHg (HI) Diastolic Blood Pressure : 98 mmHg (>HHI) NIBP Mean : 113 mmHg HARVEY PACKER LPN - 09/13/2013 13:47 AVIONICS SYSTEMS ENGINEER Source: [facility] [employer] Document Id: [id number] AVIONICS SYSTEMS ENGINEER!5 NICS SYSTEMS ENGINEER documented in this encounter Plan of Treatment Not on filedocumented as of this encounter Visit Diagnoses Not on filedocumented in this encounter Additional Health Concerns Assessment Noted Time PHQ-9 Depression Total Score: 18 02/14/2013 9:53 AM CD T documented as of this encounter
--- OUTSIDE RECORDS SUMMARY | 2022-07-29 10:55 | XMS_ITS | Encounter Summary ---
:1960 Author Organization [facility] Address [address] [place] [address] Care Team Providers Name Role Phone Unavailable Primary Care Provider Unavailable Encounter Details Date Type Department Care Team Description 07/12/2013 Hospital Encounter HX [facility] Mehreen Perez M.S., R.N., A.C.N.S.-B.C. [address] [place] [phone] (Wo rk) Social History Tobacco Use [...]
--- OUTSIDE RECORDS SUMMARY | 2022-07-29 10:55 | XMS_ITS | Encounter Summary ---
:1960 Author Organization [facility] Address [address] [place] [address] Care Team Providers Name Role Phone Unavailable Primary Care Provider Unavailable Encounter Details Date Type Department Care Team Description 06/21/2013 Hospital Encounter HX [facility] [...]
--- OUTSIDE RECORDS SUMMARY | 2022-07-29 10:55 | XMS_ITS | Encounter Summary ---
:1960 Author Organization [facility] Address [address] [place] [address] Care Team Providers Name Role Phone Unavailable Primary Care Provider Unavailable Encounter Details Date Type Department Care Team Description 07/05/2013 Hospital Encounter HX [facility] [...]
--- OUTSIDE RECORDS SUMMARY | 2022-07-29 10:55 | XMS_ITS | Encounter Summary ---
:1960 Author Organization [facility] Address [address] [place] [address] Care Team Providers Name Role Phone Unavailable Primary Care Provider Unavailable Encounter Details Date Type Department Care Team Description 11/04/[address] [facility] Cintia Aguirre M.D. [address] [place] [phone] (Wo rk) Social History Tobacco Use Types Packs/Day Years Used Date Smoking Tobacco: Never Assessed Sex Assigned at Date Recorded Not on file documented as of this encounter Last Filed Vital Signs Vital Sign Reading Time Taken Comments Blood Pressure 131/68 11/04/2013 1:48 PM RUNNER OUT Pulse 62 11/04/2013 11:23 AM RUNNER OUT Temperature - - Respiratory Rate 16 11/04/2013 11:23 AM RUNNER OUT Oxygen Saturation - - Inhaled Oxygen Concentration - - Weight 152 kg (335 lb 1.6 oz) 11/04/2013 11:23 AM RUNNER OUT Height - - Body Mass Index 46.04 10/26/2013 10:12 AM RUNNER OUT documented in this encounter Progress Notes Cintia Cobb M.D. - 11/04/2013 11:06 AM CST [id number] CHIEF COMPLAINT/REASON FOR VISIT Followup blood pressure. HISTORY OF PRESENT ILLNESS Ed is a 53-year-old male who comes in today for followup of blood pressure. We had switched his hydrochlorothiazide to chlorthalidone. He states that he is not having any side effects with it. He has been having some right shoulder pain. However, for the past few days he wonders if maybe he tore some muscles around his rib. In regards to his blood sugars, his morning readings have been aunb162 to 170 since we increased his Lantus. MEDICATIONS Reconciled. No changes today. ALLERGIES Cipro. Influenza virus vaccine. SYSTEMS REVIEW Review of systems as per history of present illness. Patient denies any chest pain or shortness of breath. No pedal edema. VITAL SIGNS Temperature 36.2, pulse is 62beats per minute, respiratory rate is 16 breaths per minute, blood pressure is 134/72 and recheck is 131/68. Oxygen saturation is 96% on room air. Weight is 152 kg. PHYSICAL EXAMINATION GENERAL: Patient is alert and oriented, in no acute distress. CARDIOVASCULAR EXAM: Mild bradycardia; S1 and S2. No murmurs, rubs or gallops. LUNGS: Clear to auscultation bilaterally. EXTREMITIES: 2+ pedal edema. IMPRESSION/REPORT/PLAN 1. Benign essential hypertension. Patient's blood pressure is improved today with the chlorthalidone. We will continue the chlorthalidone, metoprolol, and lisinopril. If blood pressure goes back up, wewill stop the metoprolol and switch him to something like labetalol. We did review his renal ultrasound which did not show any evidence of renal artery stenosis. 2. Type 2 diabetes. Last A1c was 7.65 which was improved from his prior number. We are going to continue his current diabetes medications. 3. Morbid obesity. Patient is continuing to move towards having his bariatric surgery. Hopefully he will have this done sometime through the November through January timeline. They are currently waiting to get approval from his insurance. PATIENT EDUCATION: Ready to learn No apparent learning barriers were identified Learning preferences include listening Explained diagnosis and treatment plan Patient/Child/Caregiver expressed understanding of the content Cintia Song M.D./hawa Electronically Signed By: CINTIA KILGORE MD On: 11/15/2013 10:17 PM Source: [facility] [id number] Document Id: [id number] documented in this encounter Miscellaneous Notes Miscellaneous - Harvey Packer L.P.N. - 11/04/2013 1:48 PM CST Quality Measures Quality Measures Entered On: 11/04/2013 13:48 RUNNER OUT Performed On: 11/04/2013 13:48 RUNNER OUT by HARVEY PACKER LPN BP/Tobacco/Misc Systolic Blood Pressure : 131 mmHg Diastolic Blood Pressure : 68 mmHg HARVEY PACKER LPN - 11/04/2013 13:48 RUNNER OUT Source: [facility] POWERCHART Document Id: [id number] RUNNER OUT!4 ER OUT Miscellaneous - Cintia Cobb M.D. - 11/04/2013 11:49 AM RUNNER OUT Ambulatory Patient Summary [address] [id number] Visit Information Name: LAZ LUNA [facility] Number: [id number] Current Date: 11/04/2013 11:49:57 Physicians Attending Provider: CINTIA KILGORE MD Primary [...] the Following Medications: Medication list as of 11-04-13 11:49 Attention: If you have any medications at [...] appointment detail needed. Your Goals/Additional instructions: Source: [facility] POWERCHART Document Id: [id number] ER OUT Miscellaneous - Cintia Cobb M.D. - 11/04/2013 11:49 AM RUNNER OUT Ambulatory Discharge Medication List [address] [id number] Visit Information Name: LUNALAZ [facility] Number: [id number] Visit Date: 11/04/2013 11:49:53 Attending Provider: CINTIA KILGORE MD Primary Care [...] the Following Medications: Medication list as of 11-04-13 11:49 Attention: If you have any medications at home that are not on this list, DO NOT take them until youcontact your provider for clarification. Give a copy of your medication list to your primary care provider. Update your medication list any time medications or doses are changed and carry your medication list at all times in case of emergency. Additional Information: Source: [facility] POWERCHART Document Id: [id number] ER OUT [place]o - Anne Marie Tuttle LPiliP.N. - 11/04/2013 11:27 AM CST Ambulatory Vitals Height Weight Ambulatory Vitals Height Weight Entered On: 11/04/2013 11:28 RUNNER OUT Performed On: 11/04/2013 11:27 RUNNER OUT by ANNE MARIE TUTTLE LPN, RT Vitals/Ht/Wt Systolic Blood Pressure : 131 mmHg Diastolic Blood Pressure : 68 mmHg NIBP Mean : 89 mmHg BP Location : Right upper extremity Blood Pressure Cuff Size : Large ANNE MARIE TUTTLE LPN, - 11/04/2013 11:27 RUNNER OUT Source: [facility] [employer] GroupCHART Document Id: [id number] RUNNER OUT!7 ER OUT Anne Marie Dasilva L.P.N. - 11/04/2013 11:23 AM CST Adult Senior Java J2Ee Developer Intake/History Adult Senior Java J2Ee Developer Intake/History Entered On: 11/04/2013 11:26 RUNNER OUT Performed On: 11/04/2013 11:23 RUNNER OUT by ANNE MARIE TUTTLE LPN, RT Intake Chief Complaint : f/u BP Temperature Core : 36.2 DegC(Converted to: 97.2 DegF) (LOW) Peripheral Pulse Rate : 62 /min Respiratory Rate : 16 /min Systolic Blood Pressure : 134 mmHg Diastolic Blood Pressure : 72 mmHg NIBP Mean : 93 mmHg BP Location : Right upper extremity Blood Pressure Cuff Size : Large SpO2 : 96 % Oxygen Therapy : Room air Actual Weight : 152 kg(Converted to: 335 lb 2 oz) Weight Source : Standing scale Dosing Weight Clinic : 152 kg ANNE MARIE TUTTLE LPN, RT - 11/04/2013 11:23 RUNNER OUT General Info Information Given By : Patient Preferred Communication Mode : Verbal Languages : Pashto ANNE MARIE TUTTLE LPN, RT - 11/04/2013 11:23 RUNNER OUT Subjective Pain Symptoms : No ANNE MARIE TUTTLE LPN, RT - 11/04/2013 11:23 RUNNER OUT Dependent Habits Tobacco Use/Currently Using : No Smoking Status : Never smoker ANNE MARIE TUTTLE LPN, RT - 11/04/2013 11:23 RUNNER OUT Tobacco Use Grid Last Use : never ANNE MARIE TUTTLE LPN, RT - 11/04/2013 11:23 RUNNER OUT Caffeine Use Grid Caffeine Use : Current Type : Coffee, Soft drinks Frequency : Weekly Amount : soda- weekly; coffee- 1x/week ANNE MARIE TUTTLE LPN, RT - 11/04/2013 11:23 RUNNER OUT Recreational Drug Use Grid Drug Use : None ANNE MARIE TUTTLE LPN, RT - 11/04/2013 11:23 RUNNER OUT Source: [facility] POWERCHART Document Id: [id number] RUNNER OUT!37 ER OUT documented in this encounter Plan of Treatment Not on filedocumented as of this encounter Visit Diagnoses Not on filedocumented in this encounter Additional Health Concerns Assessment Noted Time PHQ-9 Depression Total Score: 18 02/14/2013 9:53 AM CD T documented as of this encounter
--- OUTSIDE RECORDS SUMMARY | 2022-07-29 10:55 | XMS_ITS | Encounter Summary ---
:1960 Author Organization [facility] Address [address] [place] [address] Care Team Providers Name Role Phone Unavailable Primary Care Provider Unavailable Encounter Details Date Type Department Care Team Description 03/02/2013 Hospital Encounter [facility]X [facility] Sebas Lucero Ed.D., L.P. Social History Tobacco Use Types Packs/Day Years Used Date Smoking Tobacco: Never Assessed Sex Assigned at Date Recorded Not on file documented as of this encounter Miscellaneous Notes Miscellaneous - Sebas Lucero Ed.D. - 03/02/2013 12:00 AM CDT [id number] LETTER Laz Luna [address] [facility] [address] [facility] [phone] March 02, 2013 Dear Ed: Thank you for requesting an appointment for services at the [facility] in [facility]. Your Initial Evaluation appointment has been scheduled in our Psychology Department with: Friday, May 03, 2013 at 12:45 PM for Paperwork & Registration followed by a 45 minute appointment at 1:30 PM with your provider: Sebas Soares Asp, Ed.D., L.P. [facility] Your appointment with your provider will be canceled and need to be rescheduled if you are more than15 minutes late for registration and paperwork. When you make an appointment with our department, time is set aside for you. If you fail to arrive for this appointment, it is time that could have been used by other patients requesting these services. Therefore, if you are unable to keep this appointment, please contact our office prior to your appointment. If you do not contact us at least 24 hours prior to your appointment, you will be billed a Late Cancellation/ No Show Fee. Your insurance company will not reimburse for this fee; therefore, thecharge would be billed directly to you. You need to contact your insurance company prior to your appointment for a possible prior authorization to avoid delays in payment or you may be responsible for payment. There will be a number on your insurance card for you to call. Please bring the authorization number that the insurance company gives you, to your first appointment. It is also important that you bring along all of your insurance information at the time of your visit so that billing can be handled promptly. We are located on the 3rd floor of [facility] [place]) at [address] [place] [address]. If the above scheduled appointment is not convenient, please contact our office as soon as possible at or to reschedule. We trust that your experience with us will be a pleasant and worthwhile one. Sincerely, [facility] Contact Information March 02, 2013 Intake done by: [facility]#: [id number] NAME: Laz Luna SSN: [id number] : 1960 Age: [age] year old Sex: male Spouse/ S.O.: - Parent/Guardian: - ADDRESS: [address] [place] [phone] Phone Numbers: [phone] (home) Phone Contact: Home: Yes Messages: Yes Written Contact: Home: Yes Work: No No coverage found. Court Ordered/Litigation No Referral Information Caller: Self Referred by: [place] Location: [place] Referred to: Dr. Lucero Prior Contact with [facility]? No Date: - Doctor seen: NA Reason: Learn Program Length and/or Severity of Problem: - Past or Current Mental Health Provider: n/a Primary Care Physician: No primary provider on file. Medication: n/a Dosage: n/a Appointments Appt. With: Sebas Soares Asp, Ed.D., Jun [facility] Initial: 05/03/13 @ 1:30PM F/U: - 3rd.: - Intake Packet Sent on __03/02/13 Wait List Yes Source: MANNY COSTELLOHXTRANSXRTFSYS Document Id: [id number] documented in this encounter Plan of Treatment Not on filedocumented as of this encounter Visit Diagnoses Not on filedocumented in this encounter Additional Health Concerns Assessment Noted Time PHQ-9 Depression Total Score: 18 02/14/2013 9:53 AM CD T documented as of this encounter
--- OUTSIDE RECORDS SUMMARY | 2022-07-29 10:55 | XMS_ITS | Encounter Summary ---
:1960 Author Organization [facility] Address [address] [place] [address] Care Team Providers Name Role Phone Unavailable Primary Care Provider Unavailable Encounter Details Date Type Department Care Team Description 07/13/2013 Hospital Encounter HX [facility] Mehreen Perez M.S., R.N., A.C.N.S.-B.C. [address] [place] [phone] (Wo rk) Social History Tobacco Use [...]
--- OUTSIDE RECORDS SUMMARY | 2022-07-29 10:55 | XMS_ITS | Encounter Summary ---
:1960 Author Organization [facility] Address [address] [place] [address] Care Team Providers Name Role Phone Unavailable Primary Care Provider Unavailable Encounter Details Date Type Department Care Team Description 05/03/2013 Hospital Encounter HX [facility] [...]
--- OUTSIDE RECORDS SUMMARY | 2022-07-29 10:55 | XMS_ITS | Encounter Summary ---
:1960 Author Organization [facility] Address [address] [place] [address] Care Team Providers Name Role Phone Unavailable Primary Care Provider Unavailable Encounter Details Date Type Department Care Team Description 07/12/2013 Hospital Encounter HX [facility] INTERNMED Aranza Ramirez P.AJoby [address] [place] [phone] (Wo rk) Social History Tobacco Use Types Packs/Day Years Used Date Smoking Tobacco: Never Assessed Sex Assigned at Date Recorded Not on file documented as of this encounter Nursing Notes Chhaya Ramirez - 07/12/2013 12:00 AM CST [id number] CHIEF COMPLAINT/REASON FOR VISIT Medical Nutrition Therapy follow-up for weight management pre-gastric bypass surgery. Education session with patient today regarding pre-gastric bypass surgery was initiated. Patient refused to weigh on clinic scale, saying that the clinic scale lies. As education session began, patient expressed inappropriate language and behavior. Due to inappropriateness of any further discussion and/or education session today, provider left, excused self from the room and proceeded to get extra gang supervisor, Jeovanny Jansen M.D. After discussion with Dr. Jansen, Dr. Jansen had a discussion with the patient regarding his inappropriateness. Education session was, therefore, terminated and there was no further time spent with patient. ADMINISTRATIVE BILLING Total Time: Approximately 5 minutes. Chhaya Allred R.D., L.D./sweetie Electronically Signed By: CHHAYA ALLRED On: 07/13/2013 03:41 PM Source: [facility] MHSDOLBEYNONRADSYS Document Id: [id number] EXTRUSION SUPERVISOR documented in this encounter Plan of Treatment Not on filedocumented as of this encounter Visit Diagnoses Not on filedocumented in this encounter Additional Health Concerns Assessment Noted Time PHQ-9 Depression Total Score: 18 02/14/2013 9:53 AM CD T documented as of this encounter
--- OUTSIDE RECORDS SUMMARY | 2022-07-29 10:55 | XMS_ITS | Encounter Summary ---
:1960 Author Organization [facility] Address [address] [place] [address] Care Team Providers Name Role Phone Unavailable Primary Care Provider Unavailable Encounter Details Date Type Department Care Team Description 09/13/2013 Hospital Encounter [facility] Cintia Cobb M.D. [address] [place] [phone] (Wo rk) Social History Tobacco Use Types Packs/Day Years Used Date Smoking Tobacco: Never Assessed Sex Assigned at Date Recorded Not on file documented as of this encounter Miscellaneous Notes Miscellaneous - Cintia Cobb M.D. - 09/22/2013 12:13 PM INSPECTION MANAGER Normal Results Letter 22 September 2013 ED [facility] [address] [facility] [address] [place] [phone] Dear ED CARLYLE, Please review your lab results below. Your potassium is mildly elevated. We will recheck this at your next visit. If it continues to be high, we will decrease your lisinopril. Your blood sugar was alsoelevated. If you have questions or concerns, please do not hesitate to call our office. Result Name Current Result Previous Result Normal Range Sodium Lvl (mmol/L) 135.1 09/13/2013 140 07/11/2013 135.0 - 145.0 Potassium Lvl (mmol/L) (H) 5.0 09/13/2013 4.6 07/11/2013 3.6 - 4.8 Chloride (mmol/L) (L) 97 09/13/2013 (L) 99 07/11/2013 98 - 107 CO2 (mmol/L) 28.9 09/13/2013 (H) 31 07/11/2013 23.0 - 29.0 AGAP (mmol/L) 14 09/13/2013 10 - 20 Glucose Lvl (mg/dL) (H) 276 09/13/2013 70 - 139 Creatinine (mg/dL) 1.08 09/13/2013 1.0 07/11/2013 0.60 - 1.30 EGFR (MDRD) (mL/min/1.73m2) >60 09/13/2013 >60 07/11/2013 >=60 - EGFR (MDRD) (mL/min/1.73m2) >60 09/13/2013 >60 07/11/2013 >=60 - BUN (mg/dL) 16 09/13/2013 20 07/11/2013 7 - 18 Calcium Lvl (mg/dL) 9.3 09/13/2013 9.2 07/11/2013 8.6 - 10.0 Sincerely, CINTIA KILGORE [facility] [place] [address] Electronic Signature Electronically Signed By: CINTIA KILGORE MD On: 22 September 2013 This document has images extracted. Source: [facility] Easy Tax[employer]CHART Document Id: [id number] Electronically signed by Conversion, [facility] Staffing Program Manager [id number] at 02/03/2017 2:37 PM CDT documented in this encounter Plan of Treatment Not on filedocumented as of this encounter Procedures Procedure Name Priority Date/Time Associated Diagnosis Comme nts BASIC METABOLIC Routine 09/13/2013 1:39 PM Result s for this PANEL, S/P INSPECTION MANAGER procedure are i n the results section. documented in this encounter Results (ABNORMAL) BMP (Basic Metabolic Panel) (09/13/2013 1:39 PM INSPECTION MANAGER) P athologist Signature Anion Gap 14 10 - 20 POWERCHART MMOLL BUN (Blood Urea 16 7 - 18 POWERCHART Nitrogen), S MGDL Chloride, S 97 (L) 98 - 107 POWERCHART MMOLL CO2 Total 28.9 23.0 - POWERCHART 29.0 MMOLL Creatinine 1.08 0.60 - POWERCHART 1.30 MGDL Glucose 276 (H) 70 - 139 POWERCHART MGDL Calcium, Total, 9.3 8.6 - 10.0 POWERCHART S MGDL Sodium, S 135.1 135.0 - POWERCHART 145.0 MMOLL Potassium, S 5.0 (H) 3.6 - 4.8 POWERCHART MMOLL HXeGFR (MDRD) >60 >=60 POWERCHART [id number] eGFR >60 >=60 POWERCHART Black/ [id number] Emirati Specimen (Source) Anatomical Collection Method Collection Time Re ceived Time Location / / Volume Laterality Blood 09/13/2013 1:39 PM INSPECTION MANAGER Cintia Copeland M.D. LAB BLOOD ADD-ON Performing Organization Address City/State/ZIP Code Phon e Number POWERCHART documented in this encounter Visit Diagnoses Not on filedocumented in this encounter Additional Health Concerns Assessment Noted Time PHQ-9 Depression Total Score: 18 02/14/2013 9:53 AM CD T documented as of this encounter
--- OUTSIDE RECORDS SUMMARY | 2022-07-29 10:55 | XMS_ITS | Encounter Summary ---
:1960 Author Organization [facility] Address [address] [place] [address] Care Team Providers Name Role Phone Unavailable Primary Care Provider Unavailable Encounter Details Date Type Department Care Team Description 07/04/2013 Hospital Encounter HX [facility] INTERNMED Aranza Ramirez PPiliAPili-Kelvin [address] [place] [phone] (Wo rk) Social History Tobacco Use Types [...] - - Weight 156 kg (343 lb 0.6 oz) 07/04/2013 3:11 PM CDT Height 181.7 cm (5' 11.54) 07/04/2013 3:11 PM CDT Body Mass Index 47.13 07/04/2013 3:11 PM CDT documented in this encounter Nursing Notes Chhaya Ramirez - 07/04/2013 12:00 AM CDT [id number] CHIEF COMPLAINT/REASON FOR VISIT Medical Nutrition Therapy follow-up for pre-gastric bypass surgery. Referral form complete. HISTORY OF PRESENT ILLNESS DIET RECALL: Patient states he is still eating very quickly. He does not eat breakfast daily. Today he had 1 packet of oatmeal, 1 piece of wheat toast. Lunch today was a TV dinner, mashed potatoes, green beans, chicken fried steak. Oftentimes he will skip lunch. Supper last night he had grapefruit, oranges, chicken, orange chicken, potato salad, za slaw. He eats approximately 2 fruits a day, 1 vegetable a day. He had sugar-free ice cream before bed last night. He eats beef or pork on a daily basis. Refuses to eat chicken because he is afraid that it will not be cooked properly so he refuses to eat it in general. He refuses to eat any fish unless it is breaded, fried and has a lot of tartar saucewith it. Discussed trying to avoid carbonation, states that everything he eats will cause him gas regardless, so he sees no need to avoid carbonation. Discussed the need to avoid carbonation due to helping his gastric bypass surgery be more successful. He states that if the surgery is not successful, it is based off of his choice, so he refuses to avoid soda. Patient also refuses to eat more slowly, states that he just cannot do that, he does not have the time to do so, so he will eat whatever speedhe wants to be eating. Also, discussed trying to avoid liquids again at mealtimes, again, he refusesto do so. DIETARY SUPPLEMENTS: Per EMR. PHYSICAL ACTIVITY: Work. Again, refuses any additional cardiovascular exercise. REVIEW OF GOALS: from 06/06/13: 1. Follow with [facility], regarding above goals. 2. 2400 calories a day. 3. Keeping a food diary, asking to help him track this. 4. To be mindful of portion sizes. HOW OFTEN PATIENT FOLLOWING GOALS: Patient met these goals less than 50% of the time. MEDICATIONS Reviewed EMR on 07/04/2013; however, patient states he doesn't know the names of any of his medications. His just puts them out and he takes them, so was unable to obtain a medication history . Arys, however, states that he is taking only 55 units of Lantus insulin today. 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 TOBACCO USE: None. ALCOHOL USE: None. VITAL SIGNS HEIGHT: 181.7 cm. CURRENT BODY WEIGHT: 155.6 kg; He is down 1.2 kg since 06/06/13. BMI: 47.13 kg/m IMPRESSION/REPORT/PLAN DIAGNOSTIC: No new lab tests. READINESS TO LEARN: Low interest / Refuses. TEACHING METHOD USED: Verbal discussion. STAGE OF BEHAVIOR CHANGE: Pre-contemplation. EDUCATION OUTCOME: Verbalizes understanding, however, refuses to work on progressive changes. Patient selected behavioral objectives: 1. Encouraged patient to work on increasing fruits and vegetable intake, he states he will try but he cannot guarantee that he is going to actually make any effort towards increasing his fruits and vegetables. 2. Did encourage him to avoid carbonation; however, again, patient refuses to give up pop completely. Did, therefore, encourage him to drink as little of it as possible. PLAN/FOLLOW UP: Plan to see patient back in another month. Provided written material: None. ADMINISTRATIVE BILLING Counseling Time: 30 minutes, Chhaya Allred R.D., L.D./sweetie Electronically Signed By: CHHAYA ALLRED On: 07/06/2013 04:49 PM Source: [facility] MHSDOLBEYNONRADSYS Document Id: [id number] documented in this encounter Miscellaneous Notes Miscellaneous - Chhaya Ramirez - 07/04/2013 3:18 PM CDT Ambulatory Patient Summary [address] [address] Visit Information Name: LAZ LUNA [facility] Number: [id number] Current Date: 07/04/2013 15:18:34 Physicians Attending Provider: CHHAYA ALLRED Primary Care Provider: STEVE MOY OXYACETYLENE BURNER LAZ LUNA has been given the following [...] medications. Medication/Strength Dose Route Frequency Indications/Special Instructions/Comments/Notes lisinopril (lisinopril 30 mg oral tablet) 45 mg Oral once a day sulfamethoxazole-trimethoprim (Bactrim 400 mg-80 mg oral tablet) [...] tablet) 20 mg Oral once a day hydrocortisone topical [...] Upcoming Appointments Date Time Location Reason Provider 07/11/2013 08:45 [facility] high blood pressure Steve Moy CNP 07/11/2013 09:15 [facility] Lab 07/11/2013 09:15 [facility] Lab Attention: Contact your local Clinic if further appointment detail needed. Your Goals/Additional instructions: Source: [facility] POWERCHART Document Id: [id number] Miscellaneous - Chhaya Ramirez - 07/04/2013 3:18 PM CDT Ambulatory Depart Summary [address] [address] Visit Information Name: CARLYLELAZ [facility] Number: [id number] Visit Date: 07/04/2013 15:18:33 Attending Provider: CHHAYA ALLRED Primary Care Provider: STEVE MOY OXYACETYLENE BURNER LAZ LUNA has been given the following list of medications: Your Medications It is important to take your medications as directed. Use a pill box or chart to help remind you to take your medications. Please let your doctor or nurse know if you have problems taking your medications. Medication/Strength Dose Route Frequency Indications/Special Instructions/Comments/Notes lisinopril (lisinopril 30 mg oral tablet) 45 mg Oral once a day sulfamethoxazole-trimethoprim (Bactrim 400 mg-80 mg oral tablet) [...] tablet) 20 mg Oral once a day hydrocortisone topical [...] for clarification. Additional Information: Source: [facility] POWERCHART Document Id: [id number] Miscellaneous - Chhaya Ramirez - 07/04/2013 3:11 PM CDT Adult Assembly Adjuster Intake/History Adult Assembly Adjuster Intake/History Entered On: 07/04/2013 15:14 CDT Performed On: 07/04/2013 15:11 CDT by CHHAYA ALLRED Intake Height : 181.7 cm(Converted to: 6 ft 0 inch(es), 71.54 inch(es)) Actual Weight : 155.6 kg(Converted to: 343 lb 1 oz) Dosing Weight Clinic : 155.6 kg Clinic BSA : 2.8 Body Mass Index : 47.13 kg/m2 CHHAYA ALLRED - 07/04/2013 15:11 CDT General Info Information Given By : Patient Languages : Swazi CHHAYA ALLRED - 07/04/2013 15:11 CDT Subjective Pain Symptoms : No (Comment: refuses to answer question [CHHAYA ALLRED - 07/04/2013 15:11 CDT] ) CHHAYA ALLRED - 07/04/2013 15:11 CDT Dependent Habits Tobacco Use/Currently Using : No Tobacco Use/Last 12 months : No Smoking Status : Never smoker CHHAYA ALLRED - 07/04/2013 15:11 CDT Tobacco Use Grid Last Use : non CHHAYA ALLRED - 07/04/2013 15:11 CDT Alcohol Use : No CHHAYA ALLRED 07/04/2013 15:11 CDT Caffeine Use Grid Caffeine Use : Current Type : Coffee, Soft drinks Frequency : Weekly Amount : soda- weekly; coffee- 1x/week CHHAYA ALLRED - 07/04/2013 15:11 CDT Recreational Drug Use Grid Drug Use : None CHHAYA ALLRED 07/04/2013 15:11 CDT Source: [employer] Document Id: [id number]!29 documented in this encounter Plan of Treatment Not on filedocumented as of this encounter Visit Diagnoses Not on filedocumented in this encounter Additional Health Concerns Assessment Noted Time PHQ-9 Depression Total Score: 18 02/14/2013 9:53 AM CD T documented as of this encounter
--- OUTSIDE RECORDS SUMMARY | 2022-07-29 10:55 | XMS_ITS | Encounter Summary ---
:1960 Author Organization [facility] Address [address] [place] [address] Care Team Providers Name Role Phone Unavailable Primary Care Provider Unavailable Encounter Details Date Type Department Care Team Description 05/02/2013 Hospital Encounter HX [facility] INTERNMED Aranza Ramirez PPiliAPili-Kelvin [address] [place] [phone] (Wo rk) Social History Tobacco Use Types [...] - - Weight 155 kg (341 lb 4.4 oz) 05/02/2013 8:34 AM CDT Height 181.7 cm (5' 11.54) 05/02/2013 8:34 AM CDT Body Mass Index 46.89 05/02/2013 8:34 AM CDT documented in this encounter Nursing Notes Chhaya Ramirez - 05/02/2013 12:00 AM CDT [id number] CHIEF COMPLAINT / REASON FOR VISIT Medical Nutrition Therapy follow-up for pre gastric bypass surgery. Referral form complete. HISTORY OF PRESENT ILLNESS DIET RECALL: He is following a general diet. He is having 2 servings of fruit per day, 1 vegetable per day. He continues to drink Diet Coke. Drinking about 64 ounces of water per day, taking sips throughout the day. He states this is making him constipated. Encouraged him he can increase fluids, but still needs to take sips and spread it throughout the day. He has not yet started the LEARN program. He states he sees someone in [place] tomorrow. He refuses to chew food to an applesauce consistency. He states if he wants to take a big bite, he is going to take a big bite and swallow it because he will get sick of chewing things to an applesauce consistency. He refuses to add more exercise into his l ifestyle at present time and he refuses to not drink at mealtimes. DIETARY SUPPLEMENTS: Per EMR. PHYSICAL ACTIVITY: ADLs, work. Again, refuses to add more exercise. States he will add more exerciseif I want to. REVIEW OF GOALS: From 04/04/2013: 1) Chew food 20 bites per chew. Put utensil down between bites. 2) 30/30 rule. 3) 2400 calories a day. 4) Chew foods to an applesauce consistency. HOW OFTEN PATIENT FOLLOWING GOALS: He is meeting these goals less than 50% of the time. CURRENT MEDICATIONS Reviewed EMR dated 05/02/2013. No changes. 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 TOBACCO USE: None. ALCOHOL USE: None. VITAL SIGNS HEIGHT: 181.7 cm. WEIGHT: 154.8 kg; 1.5 kilograms lost since 04/04/2013. BMI: 46.89 kg/m IMPRESSION / REPORT / PLAN DIAGNOSTIC: No new labs. READINESS TO LEARN: Accepting. TEACHING METHOD USED: Verbal discussion. STAGE OF BEHAVIOR CHANGE: Contemplation. EDUCATION OUTCOME: Verbalizes understanding. Patient selected behavioral objectives: 1) Try to chew food to an applesauce consistency. 2) Continue to do 2400 calories a day. 3) Continue to sip liquids and increase how many total ounces of liquids he is drinking throughout the day drinking only between meals. PLAN / FOLLOW UP: Plan to see patient back in 1 month. Provided written material: None. ADMINISTRATIVE BILLING Total Time: 15 minutes. Chhaya Allred R.D., LLinda/claude Electronically Signed By: CHHAYA ALLRED On: 05/05/2013 10:38 AM Source: [facility] MHSDOLBEYNONRADSYS Document Id: [id number] documented in this encounter Miscellaneous Notes Miscellaneous - Chhaya Ramirez - 05/02/2013 8:38 AM CDT Ambulatory Patient Summary [facility] [address] [place] [id number] Visit Information Name: LAZ LUNA [facility] Number: [id number] Current Date: 05/02/2013 08:38:46 Physicians Attending Provider: CHHAYA ALLRED Primary Care Provider: STEVE ANDREA CHRISTMAS TREE GRADER Your Medications Here is a list of your medications. It is important to take your medications as directed. Use a pillbox or chart to help remind you to take your medications. Please let your doctor or nurse know if you have problems taking your medications. Medication/Strength Dose Route Frequency Indications/Special Instructions/Comments/Notes simvastatin (simvastatin 40 mg oral tablet) 40 mg Oral once a day (at bedtime) *liraglutide (Victoza) 1.2 mg Subcutaneous once a day *insulin glargine (Lantus Solostar Pen 100 units/mL subcutaneous solution) 40 units Subcutaneous once a day metFORMIN (metformin 1000 mg [...] Obesity (BMI > 40) (V85.4) Active 04/04/2013 Your Upcoming Appointments Date Time Location Reason Provider No Appointments found Your Goals/Additional instructions: [facility] Document Id: [id number] Miscellaneous - Chhaya Ramirez - 05/02/2013 8:38 AM CDT Ambulatory Depart Summary [facility] [address] [place] [address] Visit Information Name: LAZ LUNA [facility] Number: [id number] Visit Date: 05/02/2013 08:38:45 Attending Provider: CHHAYA ALLRED Primary Care Provider: STEVE ANDREA CHRISTMAS TREE GRADER LAZ LUNA has been given the following list of medications: Your Medications It is important to take your medications as directed. Use a pill box or chart to help remind you to take your medications. Please let your doctor or nurse know if you have problems taking your medications. Medication/Strength Dose Route Frequency Indications/Special Instructions/Comments/Notes simvastatin (simvastatin 40 mg oral tablet) 40 mg Oral once a day (at bedtime) *liraglutide (Victoza) 1.2 mg Subcutaneous once a day *insulin glargine (Lantus Solostar Pen 100 units/mL subcutaneous solution) 40 units Subcutaneous once a day metFORMIN (metformin 1000 mg [...] your provider for clarification. Additional Information: Source: [facility] POWERCHART Document Id: [id number] Miscellaneous - Chhaya Ramirez - 05/02/2013 8:34 AM CDT Adult Youth Program Director Intake/History Adult Youth Program Director Intake/History Entered On: 05/02/2013 8:36 CDT Performed On: 05/02/2013 8:34 CDT by CHHAYA ALLRED Intake Height : 181.7 cm(Converted to: 6 ft 0 inch(es), 71.54 inch(es)) Actual Weight : 154.8 kg(Converted to: 341 lb 4 oz) Dosing Weight Clinic : 154.8 kg Clinic BSA : 2.8 Body Mass Index : 46.89 kg/m2 CHHAYA ALLRED - 05/02/2013 8:34 CDT General Info Information Given By : Patient Languages : Danish CHALINO CHHAYA Fernandez 05/02/2013 8:34 CDT Subjective Pain Symptoms : Yes CHHAYA ALLRED 05/02/2013 8:34 CDT Pain Pain Assessment Grid Pain 1 Location : Hip Laterality : Right ALLREDCHHAYA SWANSON 05/02/2013 8:34 CDT Dependent Habits Tobacco Use/Currently Using : No Tobacco Use/Last 12 months : No Smoking Status : Never smoker CHHAYA ALLRED 05/02/2013 8:34 CDT Tobacco Use Grid Last Use : non CHHAYA ALLRED 05/02/2013 8:34 CDT Alcohol Use : No CHHAYA ALLRED 05/02/2013 8:34 CDT Caffeine Use Grid Caffeine Use : Current Type : Soft drinks Frequency : Daily Amount : 12-20 oz./day CHHAYA ALLRED 05/02/2013 8:34 CDT Recreational Drug Use Grid Drug Use : None CHHAYA ALLRED 05/02/2013 8:34 CDT Source: [employer] Document Id: [id number] CDT!34 documented in this encounter Plan of Treatment Not on filedocumented as of this encounter Visit Diagnoses Not on filedocumented in this encounter Additional Health Concerns Assessment Noted Time PHQ-9 Depression Total Score: 18 02/14/2013 9:53 AM CD T documented as of this encounter
--- OUTSIDE RECORDS SUMMARY | 2022-07-29 10:55 | XMS_ITS | Encounter Summary ---
:1960 Author Organization [facility] Address [address] [place] [address] Care Team Providers Name Role Phone Unavailable Primary Care Provider Unavailable Encounter Details Date Type Department Care Team Description 04/04/2013 Hospital Encounter HX [facility] INTERNMED Aranza Ramirez, P.APili-C. [address] [place] [phone] (Wo rk) Social History Tobacco Use Types [...] Oxygen Concentration - - Weight 156 kg (344 lb 9.3 oz) 04/04/2013 3:26 PM CDT Height 181.7 cm (5' 11.54) 04/04/2013 3:26 PM CDT Body Mass Index 47.34 04/04/2013 3:26 PM CDT documented in this encounter Nursing Notes Chhaya Ramirez - 04/04/2013 12:00 AM CDT [id number] CHIEF COMPLAINT / REASON FOR VISIT Referral completed by Steve Moy CNP for pre gastric bypass surgery. HISTORY OF PRESENT ILLNESS DIET RECALL: Patient is following a general eating pattern. Breakfast today was a big breakfast [employer]. It consisted of eggs, sausage, hash browns and then when he got home he had at least a 16ounce glass of 2% milk. Midmorning a piece of toast. His typical breakfast at home would be cereal with strawberries in it, 2 pieces of toast with meat on it, 2 pieces of raisin bread, water to drink throughout the morning. Lunch is usually 2 pieces of bread with meat on it, sometimes just have a sandwich and then a serving of fruit, granola bar, some kind of chips or snack crackers, a bite-sized candy bar. In the afternoon typically no snack, occasionally fruit. Supper last night was taco salad with a hard shell taco, a super beef burrito plus potato oles. Before bed nothing routine. Sometimes a pickle or cookies or fruit or chips. Throughout the day he drinks 12 to 20 ounces of diet soda. Water,drinks tap water only up to a half a gallon a day, sometimes less. DIETARY SUPPLEMENTS: Per EMR. PHYSICAL ACTIVITY: ADLs, what he does at work. LIMITATIONS: Some knee and hip pain. COMORBIDITIES: Per EMR. CURRENT MEDICATIONS Reviewed EMR dated 04/04/13, no changes. Although patient is planning to increase his Lantus insulin per his own decision. Did recommend thathe contact his nurses educator at [facility] prior to making self-adjustments. He refuses to contact them stating that they do not return his phone calls. Patient also plans to increase his Victoza himself. Did again recommend that he contact [facility] his nurses educator prior to doing that as there is a risk of hypoglycemia with his Lantus and Victoza and he refuses to again contact them. Did recommend from a professional perspective that he do contact them but again patient refuses to do so. BLOOD GLUCOSE LEVELS: Patient checks blood sugars twice a day. Blood glucose ranges from 180 to 400. HYPOGLYCEMIA: None. COMORBIDITIES: Per EMR. 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 TOBACCO USE: None. ALCOHOL USE: None. VITAL SIGNS HEIGHT: 181.7 cm. CURRENT BODY WEIGHT: 156.3 kg. BMI: 47.34. IMPRESSION / REPORT / PLAN DIAGNOSTICS: Laboratory values hemoglobin A1c from 11/18/2012 was 10.7%. Lipid panel from 07/14/2012total cholesterol 154, triglyceride 240, HDL 43, LDL 63, AST 21, ALT 33, albumin 3.6, fasting blood sugar 165, creatinine 1.0, EGFR greater than 60. IMPRESSION: A 52-year-old male here for dietary education regarding pre gastric bypass surgery. Discussed the importance of slowing down his eating habits, not drinking liquids 30 minutes before, 30 minutes after or during meals. Discussed the importance of pre weight loss surgery. He expresses verbal understanding of items. States he may not be able to make changes. He does not know if he can just sip his water intake. Discussed the importance of sipping this to the success of the surgery. Also discussed decreasing overall calorie intake and he did express verbal understanding of all items discussed. Patient is currently pursuing using the Learn Program in [facility]. First session is not u ntil the end of April. He thinks it will be group sessions but he is not sure of this. He did see [facility] manager business continuity prior to this appointment and at that visit they talked about working on more vegetables, less butter on his vegetables and slowing down how fast he is eating. States he will never be able to eat slowly due to his work timeline. Did encourage him to chew his food thoroughly at least 20 chews per bite and put utensil down between every bite and see if this will help him slow down. He expressed verbal understanding. READINESS TO LEARN: Accepting. BARRIERS TO LEARNING: None. LEARNING METHOD PREFERRED: Reading / Listening. TEACHING METHOD USED: Printed materials / Verbal discussion / Demonstration. STAGE OF BEHAVIOR CHANGE: Contemplation / Preparation. EDUCATION OUTCOME: Verbalizes understanding. Education topics covered today include: 1) Triggers for overeating / normalized eating. 2) Fundamentals for healthy eating. 3) Suggestions for increasing vegetables. Estimated basal calories: 2400 calories per day. Protein needs: 81 grams of protein per day. Patient selected behavioral objectives: 1) Twenty chews per bite and putting utensil down between every bite. 2) Thirty/thirty rule. 3) 2400 calories a day. 4) Chew foods to an applesauce consistency. PLAN / FOLLOW UP: Plan to see patient back in 1 month. Provided written material: 1) Calorie and Protein Content of Common Foods - [facility] reference. 2) Nutrition in the Fast Bam, Fast Food Guide. ADMINISTRATIVE BILLING Counseling Time: Spent today with patient 60 minutes. Chhaya Allred R.D., L.D./thai Electronically Signed By: CHHAYA ALLRED On: 04/06/2013 04:45 PM Source: [facility] MHSDOLBEYNONRADSYS Document Id: [id number] documented in this encounter Miscellaneous Notes Miscellaneous - Chhaya Ramirez - 04/05/2013 10:35 AM CDT General Message Document Contains Addenda Addendum by CHHAYA ALLRED on 05 April 2013 10:43 CDT Discussed above w/ patient at 10:35 a.m., and estimated 1/2 of XL thin crust pizza would be approxiamately 1000 calories and more if he puts double cheese on pizza. Patient expressed verbal understanding. From: CHHAYA ALLRED Sent: 04/05/2013 10:35:46 CDT Subject: General Message Phone call received yesterday at 5 p.m. re: calories in pizza, returned phone call today to [employer] at 10:30 a.m. No answer on either line, unable to leave message. Will try to return call again at later time. Source: [facility] POWERCHART Document Id: [id number] Miscellaneous - Chhaya Rmairez - 04/04/2013 3:26 PM CDT Ambulatory Patient Summary [facility] [address] [place] [id number] Visit Information Name: LAZ LUNA [facility] Number: [id number] Current Date: 04/04/2013 15:26:21 Physicians Attending Provider: CHHAYA ALLRED Primary Care Provider: STEVE MOY COMPOUNDING ASSISTANT Your Medications Here is a list of your medications. It is important to take your medications as directed. Use a pillbox or chart to help remind you to take your medications. Please let your doctor or nurse know if you have problems taking your medications. Medication/Strength Dose Route Frequency Indications/Special Instructions/Comments/Notes liraglutide (Victoza) 1.2 mg Subcutaneous once a [...] tablet) 20 mg Oral once a day simvastatin (simvastatin [...] No Appointments found Your Goals/Additional instructions: Source: [facility] POWERCHART Document Id: [id number] Miscellaneous - Chhaya Ramirez - 04/04/2013 3:26 PM CDT Ambulatory Depart Summary [address] [address] Visit Information Name: CARLYLE LAZ [facility] Number: [id number] Visit Date: 04/04/2013 15:26:20 Attending Provider: CHHAYA ALLRED Primary Care Provider: STEVE MOY COMPOUNDING ASSISTANT LAZ LUNA has been given the following list of medications: Your Medications It is important to take your medications as directed. Use a pill box or chart to help remind you to take your medications. Please let your doctor or nurse know if you have problems taking your medications. Medication/Strength Dose Route Frequency Indications/Special Instructions/Comments/Notes liraglutide (Victoza) 1.2 mg Subcutaneous once a [...] tablet) 20 mg Oral once a day simvastatin (simvastatin [...] your provider for clarification. Additional Information: Source: [facility] POWERCHART Document Id: [id number] Miscellaneous - Chhaya Ramirez - 04/04/2013 3:26 PM CDT Adult Meat Stock Clerk Intake/History Adult Meat Stock Clerk Intake/History Entered On: 04/04/2013 15:42 CDT Performed On: 04/04/2013 15:26 CDT by CHHAYA ALLRED Intake Height : 181.7 cm(Converted to: 6 ft 0 inch(es), 71.54 inch(es)) Actual Weight : 156.3 kg(Converted to: 344 lb 9 oz) Dosing Weight Clinic : 156.3 kg Clinic BSA : 2.81 Body Mass Index : 47.34 kg/m2 CHHAYA ALLRED - 04/04/2013 15:26 CDT General Info Information Given By : Patient Languages : Tunisian CHHAYA ALLRED - 04/04/2013 15:26 CDT Subjective Pain Symptoms : Yes CHHAYA ALLRED 04/04/2013 15:26 CDT Pain Pain Assessment Grid Pain 1 Pain 2 Location : Knee Hip Laterality : Bilateral Right CHHAYA ALLRED 04/04/2013 15:26 CDT CHHAYA ALLRED - 04/04/2013 15:26 CDT Dependent Habits Tobacco Use/Currently Using : No Tobacco Use/Last 12 months : No Smoking Status : Never smoker CHHAYA ALLRED 04/04/2013 15:26 CDT Tobacco Use Grid Last Use : non CHHAYA ALLRED 04/04/2013 15:26 CDT Alcohol Use : No CHHAYA ALLRED 04/04/2013 15:26 CDT Caffeine Use Grid Caffeine Use : Current Type : Soft drinks Frequency : Daily Amount : 12-20 oz./day CHHAYA ALLRED 04/04/2013 15:26 CDT Recreational Drug Use Grid Drug Use : None CHHAYA ALLRED - 04/04/2013 15:26 CDT Source: [facility] [employer] Document Id: [id number] CDT!37 documented in this encounter Plan of Treatment Not on filedocumented as of this encounter Visit Diagnoses Not on filedocumented in this encounter Additional Health Concerns Assessment Noted Time PHQ-9 Depression Total Score: 18 02/14/2013 9:53 AM CD T documented as of this encounter
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
--- OUTSIDE RECORDS SUMMARY | 2022-07-29 10:56 | XMS_ITS | Encounter Summary ---
:1960 Author Organization [facility] Address [address] [place] [address] Care Team Providers Name Role Phone Unavailable Primary Care Provider Unavailable Encounter Details Date Type Department Care Team Description 03/31/2011 Hospital Encounter [facility] Tye Mooney Jr., M.D. [address], [place] [phone] (Wo rk) Social History Tobacco Use Types Packs/Day Years Used Date Smoking Tobacco: Never Assessed Sex Assigned at Date Recorded Not on file documented as of this encounter Progress Notes Vale Craig, C.O.T. - 03/31/2011 11:13 AM CDT Eye Services Clinic Exam Eye Services Clinic Exam Entered On: 03/31/2011 11:23 CDT Performed On: 03/31/2011 11:13 CDT by VALE CRAIG Chief Complaint and History Pain Symptoms: No TYE MOONEY MD - 03/31/2011 11:45 CDT Reason for Visit: Other: pt here for routine diabetic eye exam Last A1C 8.0 BS VALE Rosales - 03/31/2011 11:13 CDT Optometry Exam Familty History Grid Diabetes: Self, Mother, Father, Grandparents VALE CRAIG - 03/31/2011 11:13 CDT Vision Testing Right Eye Vision Testing: Without correction, 20/20, -1 Left Eye Vision Testing: Without correction, 20/20, -2 Both Eyes Vision Testing: Without correction, 20/20, -1 SONJA CRAIGLENE Soumya - 03/31/2011 11:13 CDT Refractive Procedure Consult Right Eye Manifest Grid Date: 03/31/2011 CDT Performed by: Dami Sphere: Pl CYL: -0.50 [place]: 180 ADD: +1.50 Prism: 20/20 VALE CRAIG - 03/31/2011 11:13 CDT Left Eye Manifest Grid Date: 03/31/2011 CDT Performed by: Dami Sphere: Pl CYL: -0.25 [place]: 180 ADD: +1.50 Prism: 20/20 VALE CRAIG - 03/31/2011 11:13 CDT Ocular Testing EOMS: Normal Pupils: PERRLA Cover Test: Normal VALE CRAIG - 03/31/2011 11:13 CDT Intraoccular Pressures Intraoccular Pressures Grid Date: 03/31/2011 CDT 03/31/2011 CDT Eye: RE LE Applanation: 17 17 VALE CRAIG - 03/31/2011 11:13 CDT VALE CRAIG - 03/31/2011 11:13 CDT Eye Drops Exam Phenylephrine 2.5% Eye Drops Eye: Both eyes Phenylephrine 2.5% Eye Drops Amount: One drop Phenylephrine 2.5% Eye Drops Time: 11:21 SPINNER CONCRETE PIPE Tropicamide 1% Eye Drops Eye: Both eyes Tropicamide 1% Eye Drops Amount: One drop Tropicamide 1% Eye Drops Time: 11:21 SPINNER CONCRETE PIPE VALE CRAIG - 03/31/2011 11:13 CDT Ocular Health Ocular Health Ext Rt Eye Grid Ext Rt Eye - Lids/Lashes: Normal Ext Rt Eye - Conjunctiva: Normal Ext Rt Eye - Cornea: Normal Ext Rt Eye - A/C: Normal Ext Rt Eye - Iris: Normal Ext Rt Eye - Lens: Normal TYE MOONEY MD - 03/31/2011 11:45 CDT Ocular Health Ext Lt Eye Grid Ext Lt Eye - Lids/Lashes: Normal Ext Lt Eye - Conjunctiva: Normal Ext Lt Eye - Cornea: Normal Ext Lt Eye - A/C: Normal Ext Lt Eye - Iris: Normal Ext Lt Eye - Lens: Normal TYE MOONEY MD - 03/31/2011 11:45 CDT Ocular Health Int Rt Eye Grid Int Rt Eye - Vitreous: Normal Int Rt Eye - C/D: Normal (Comment: 0.5 [TYE MOONEY MD - 03/31/2011 11:45 CDT] ) Int Rt Eye - Margins: Normal Int Rt Eye - Color: Normal Int Rt Eye - Macula: Normal Int Rt Eye - Posterior Pole: Normal Int Rt Eye - Periphery: Normal Int Rt Eye - Vessels: Normal TYE MOONEY MD - 03/31/2011 11:45 CDT Ocular Health Int Lt Eye Grid Int Lt Eye - Vitreous: Normal Int Lt Eye - C/D: Normal (Comment: 0.25 [TYE MOONEY MD - 03/31/2011 11:45 CDT] ) Int Lt Eye - Margins: Normal Int Lt Eye - Color: Normal Int Lt Eye - Macula: Normal Int Lt Eye - Posterior Pole: Normal Int Lt Eye - Periphery: Normal Int Lt Eye - Vessels: Normal TYE MOONEY MD - 03/31/2011 11:45 CDT Assessment: C/D asymmetry Presbyopia Mild astigmatism RTO 6 weeks for HVF 24-2 TYE MOONEY MD - 03/31/2011 11:45 CDT Source: [facility]! Document Id: [id number] CDT!37 documented in this encounter Nursing Notes Radha Graham L.PPiliNPili - 06/12/2011 11:29 AM CDT Diabetic Call Called and spoke with patient's who states that they are working through some issues with their insurance and once those are straightened out they will call and schedule the lab and blood pressure check. Electronically Signed By: RADHA GRAHAM LPN On: 06/12/2011 11:31 am Source: [facility]! Document Id: [id number] documented in this encounter Miscellaneous Notes Miscellaneous - Mary Diaz L.PPiliNPili - 03/31/2011 1:57 PM CDT Quality Measures Quality Measures Entered On: 04/03/2011 13:58 CDT Performed On: 03/31/2011 13:57 CDT by MARY DIAZ LPN Diabetes Date of Last Eye Exam: 03/31/2011 CDT MARY DIAZ LPN - 04/03/2011 13:57 CDT Source: [facility]! Document Id: [id number] CDT!3 Miscellaneous - Vale Craig, C.O.T. - 03/31/2011 11:23 AM CDT Ambulatory Vitals Height Weight Ambulatory Vitals Height Weight Entered On: 03/31/2011 11:25 CDT Performed On: 03/31/2011 11:23 CDT by VALE CRAIG Vitals/Ht/Wt Systolic Blood Pressure: 130mmHg Diastolic Blood Pressure: 90mmHg (HI) NIBP Mean: 103mmHg BP Location: Right upper extremity VALE CRAIG - 03/31/2011 11:23 CDT Source: [facility]! Document Id: [id number] CDT!6 documented in this encounter Plan of Treatment Not on filedocumented as of this encounter Visit Diagnoses Not on filedocumented in this encounter
--- OUTSIDE RECORDS SUMMARY | 2022-07-29 10:56 | XMS_ITS | Encounter Summary ---
:1960 Author Organization [facility] Address [address] [place] [address] Care Team Providers Name Role Phone Unavailable Primary Care Provider Unavailable Encounter Details Date Type Department Care Team Description 03/19/2011 Hospital Encounter HX [facility] Steve Andrea, Soumya HERRERA, C.N.P. [address] [place], [place] [phone] (Wo rk) Social History Tobacco Use Types Packs/Day Years Used Date Smoking Tobacco: Never Assessed Sex Assigned at Date Recorded Not on file documented as of this encounter Progress Notes Steve Andrea, ULTIMATE HOOPS TRAINER, C.N.P. - 03/19/2011 12:00 AM CDT [id number] CHIEF COMPLAINT/ REASON FOR VISIT Diabetes type 2 uncontrolled HISTORY OF PRESENT ILLNESS Ed is here for diabetes recheck. He is due for A1c and BMP today. He states he thinks he had a virus the last couple of weeks. He has had some diarrhea off and on. He has been drinking Gatorade and taking some Imodium and symptoms have improved. He is due for dilated eye exam plans to schedule that for the end of the month. CURRENT MEDICATIONS See depart summary from today ALLERGIES See EMR PREVENTIVE: Due for colonoscopy declines Vitals see EMR PHYSICAL EXAM Well developed obese male and no acute distress. SKIN: Warm and dry. TMs clear. Throat clear. Neck: Supple. LUNGS: Clear to auscultation. HEART: Regular rate and rhythm. ABDOMEN: Soft, nontender, no distension, no focal mass, no hepatosplenomegaly. Bowel sounds present. IMPRESSION/REPORT/PLAN Diabetes type 2 uncontrolled. Will check A1c and BMP today. Recommend he decrease the amount of Gatorade he is drinking and work on weight loss and regular exercise program. Diabetes education done see land acquisition manager intake form in the EMR and I will mail him laboratory results STEVEN/clrenee Signed Steve Andrea, MSN, CLIENT COORDINATOR, CDE Family Nurse Practitioner Electronically Signed By: STEVE ANDREA CLIENT COORDINATOR On: 03/20/2011 12:48 PM Source: [facility] MHSDOLBEYNONRADSYS Document Id: [id number] documented in this encounter Plan of Treatment Not on filedocumented as of this encounter Visit Diagnoses Not on filedocumented in this encounter
--- OUTSIDE RECORDS SUMMARY | 2022-07-29 10:56 | XMS_ITS | Encounter Summary ---
:1960 Author Organization [facility] Address [address] [place] [address] Care Team Providers Name Role Phone Unavailable Primary Care Provider Unavailable Encounter Details Date Type Department Care Team Description 07/14/2012 Hospital Encounter HX [facility] Rosangela Vieira M.D. [address] [facility], [address] [place], [place] [address] (Wo rk) Social History Tobacco Use Types Packs/Day Years Used Date Smoking Tobacco: Never Assessed Sex Assigned at Date Recorded Not on file documented as of this encounter Last Filed Vital Signs Vital Sign Reading Time Taken Comments Blood Pressure 154/102 07/14/2012 2:17 PM [facility] Pulse 68 07/14/2012 2:13 PM [facility] Temperature - - Respiratory Rate 20 07/14/2012 2:13 PM [facility] Oxygen Saturation - - Inhaled Oxygen Concentration - - Weight 151 kg (332 lb 14.3 oz) 07/14/2012 2:13 PM [facility] Height - - Body Mass Index 46.61 02/19/2012 9:32 AM CDT documented in this encounter Progress Notes Mariluz Vieira M.D. - 07/14/2012 2:02 PM CST [id number] CHIEF COMPLAINT/REASON FOR VISIT Rash HISTORY OF PRESENT ILLNESS Ed is a 52-year-old male into the clinic today with a rash he has had under his belly and in the groin for 1 to 2 years. It has spread. He wonders if he got general herpes from his ex-. He has itching and burning in the area. He has no vesicles but has had some pimple like lesions. He has not tried any topical antifungals. 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 States his lowest blood sugar the last 2 years was 140. Typically he runs in the 200 to 300s. 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 He states that he had protein in the urine on that. I note that he had a urine microalbumin done in the spring that also showed protein. His last sodium level was 137 in February and creatinine was 1.1. A1c was 10. He is due for anA1c today, lipid panel and he has not eaten anything since 6 this morning so we will get a lipid panel today and I will forward that to his primary care provider Steve Andrea CNP. CURRENT MEDICATIONS Please see EMR. ALLERGIES Please see EMR. SYSTEMS REVIEW All systems reviewed and negative. PAST MEDICAL/SURGICAL HISTORY Please see EMR. SOCIAL HISTORY Please see EMR. FAMILY HISTORY Please see EMR. VITAL SIGNS Please see EMR. PHYSICAL EXAM GENERAL: Well appearing male. SKIN EXAM: He has diffuse redness with sharp borders underneath his panniculus and also in the groinand a little bit of erythematous papules on the scrotum. No vesicles, not a lot of satellite lesionsreally. IMPRESSION/REPORT/PLAN 1. Smi intertrigo - will give 2.5% hydrocortisone lotion. The lotion will be a little bit more drying than the cream which he already has for his face. We will have him do this twice a day for 2 weeks and then he will put the ketoconazole cream on top twice a day for 2 weeks and then call me and let me know how things are going. 2. Diabetes - A1c, lipids and comprehensive panel ordered today. 3. Hypertension. Elevated blood pressure today. We will increase his lisinopril to [address] take 1-1/2 pills of what he has already and then follow up with Steve Andrea regarding a new prescription for 40 mg or higher and other assessment. Time spent 25 minutes, more than 20 minutes spent discussing care and plan. Mariluz Vieira M.D./thai Electronically Signed By: MARILUZ VIEIRA MD On: 07/16/2012 04:24 PM Source: [facility] MHSDOLBEYNONRADSYS Document Id: [id number] IX LEAD documented in this encounter Miscellaneous Notes Miscellaneous - Mariluz Vieira M.D. - 07/14/2012 4:00 PM CST Results Notification From: MARILUZ VIEIRA MD To: STEVE ANDREA CNP Sent: 07/14/2012 16:00:21 [facility] ! Show up: 07/14/2012 22:00:21 [facility] Subject: Results Notification Actions: Notify patient of results Source: [facility] POWERCHART Document Id: [id number] Electronically signed by [facility] Registered Respiratory Technician [id number] at 02/07/2017 6:42 PM CDT Miscellaneous - Mariluz Vieira M.D. - 07/14/2012 2:56 PM CST Ambulatory Patient Summary [address] [address] Visit Information Name: NOEMÍ LUNA Current Date: 07/14/2012 14:56:31 Physicians Attending Provider: MARILUZ VIEIRA MD Primary Care Provider: STEVE ANDREA CNP Your Medications Here is a list of your medications. It is important to take your medications as directed. Use a pillbox or chart to help remind you to take your medications. Please let your doctor or nurse know if you have problems taking your medications. Medication/Strength Dose Route Frequency Indications/Special Instructions/Comments hydrocortisone topical (hydrocortisone 2% topical lotion) 1 jannie Topical two times a day 2 weeks only econazole topical (econazole 1% topical cream) 1 jannie Topical two times a day for up to 2 weeks furosemide (Lasix 20 mg oral tablet) 20 mg Oral once a day lisinopril (lisinopril 30 mg oral tablet) See Instructions 1.5 tabs daily until seen by Steve amoxicillin-clavulanate (Augmentin 875 mg oral tablet) 1 tab(s) Oral two times a day for 14 Days metformin (metformin 1000 mg oral tablet) 1,000 mg Oral two times a day with meals glimepiride (glimepiride 4 mg oral tablet) 8 mg Oral once a day with breakfast omeprazole (omeprazole 20 mg oral delayed release capsule) 20 mg Oral once a day allopurinol (allopurinol 300 mg oral tablet) 300 mg Oral once a day Exenatide (Byetta 10 mcg/dose-2.4ml Prefilled Pen) 10 mcg Subcutaneous two times a day within 60 minutes before morning and evening meals metoprolol (metoprolol tartrate 50 mg oral tablet) 50 mg Oral two times a day simvastatin (simvastatin 40 mg oral tablet) 40 mg Oral once a day (at bedtime) hydrocortisone topical (hydrocortisone topical 2.5% cream) 1 jannie Topical three times a day (apply soraya thin film to the affected skin and rub in gently and completely) docusate-senna (Dok Plus) 2 tab(s) Oral once a day tadalafil (Cialis 20 mg oral tablet) 1 tab(s) Oral once a day as needed for erectile dysfunction Take as needed prior to anticipated sexual activity aspirin (aspirin 325 mg oral tablet) 1 tab(s) Oral once a day Attention: If you have any medications at [...] 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 Active 07/14/2012 Your Upcoming Appointments Date Time Location Reason Provider No Appointments found Your Goals/Additional instructions: -1. Intertrigo (irritation of skin folds with sim). Apply topical hydrocortisone twice daily and econazole cream twice daily for 2 weeks. Recheck as needed. 2. Blood pressure- too high. set up appointment with Steve this week or next week. 3. Diabetes- increaseto 1.5 tablets of lisinopril until seen by Steve . LAbs done today- A1c, lipids, and comprehensive panel Source: [facility] POWERCHART Document Id: [id number] IX LEAD Miscellaneous - Mariluz Vieira M.D. - 07/14/2012 2:56 PM CST Ambulatory Depart Summary [address] [address] Visit Information Name: NOEMÍ LUNA Visit Date: 07/14/2012 14:56:30 Attending Provider: MARILUZ VIEIRA MD Primary Care Provider: STEVE ANDREA [facility] LU[facility], NOEMÍ has been given the following list of medications: Your Medications It is important to take your medications as directed. Use a pill box or chart to help remind you to take your medications. Please let your doctor or nurse know if you have problems taking your medications. Medication/Strength Dose Route Frequency Indications/Special Instructions/Comments hydrocortisone topical (hydrocortisone 2% topical lotion) 1 jannie Topical two times a day 2 weeks only econazole topical (econazole 1% topical cream) 1 jannie Topical two times a day for up to 2 weeks furosemide (Lasix 20 mg oral tablet) 20 mg Oral once a day lisinopril (lisinopril 30 mg oral tablet) See Instructions 1.5 tabs daily until seen by Steve amoxicillin-clavulanate (Augmentin 875 mg oral tablet) 1 tab(s) Oral two times a day for 14 Days metformin (metformin 1000 mg oral tablet) 1,000 mg Oral two times a day with meals glimepiride (glimepiride 4 mg oral tablet) 8 mg Oral once a day with breakfast omeprazole (omeprazole 20 mg oral delayed release capsule) 20 mg Oral once a day allopurinol (allopurinol 300 mg oral tablet) 300 mg Oral once a day Exenatide (Byetta 10 mcg/dose-2.4ml Prefilled Pen) 10 mcg Subcutaneous two times a day within 60 minutes before morning and evening meals metoprolol (metoprolol tartrate 50 mg oral tablet) 50 mg Oral two times a day simvastatin (simvastatin 40 mg oral tablet) 40 mg Oral once a day (at bedtime) hydrocortisone topical (hydrocortisone topical 2.5% cream) 1 jannie Topical three times a day (apply soraya thin film to the affected skin and rub in gently and completely) docusate-senna (Dok Plus) 2 tab(s) Oral once a day tadalafil (Cialis 20 mg oral tablet) 1 tab(s) Oral once a day as needed for erectile dysfunction Take as needed prior to anticipated sexual activity aspirin (aspirin 325 mg oral tablet) 1 tab(s) Oral once a day Attention: If you have any medications at home that are not on this list, DO NOT take them until youcontact your provider for clarification. Additional Information: Source: [facility] POWERCHART Document Id: [id number] IX LEAD Miscellaneous - Ynes Dia L.P.N. - 07/14/2012 2:17 PM CST Ambulatory Vitals Height Weight Ambulatory Vitals Height Weight Entered On: 07/14/2012 14:17 [facility] Performed On: 07/14/2012 14:17 [facility] by YNES DIA Vitals/Ht/Wt Systolic Blood Pressure : 154mmHg (HI) Diastolic Blood Pressure : 102mmHg (>HHI) NIBP Mean : 119mmHg BP Location : Left upper extremity Blood Pressure Cuff Size : Large YNES DIA - 07/14/2012 14:17 [facility] Source: [facility] POWERCHART Document Id: [id number] IX LEAD Miscellaneous - Ynes Dia L.P.N. - 07/14/2012 2:17 PM CST Ambulatory Vitals Height Weight Ambulatory Vitals Height Weight Entered On: 07/14/2012 14:19 [facility] Performed On: 07/14/2012 14:17 [facility] [employer] by YNES DIA Vitals/Ht/Wt Systolic Blood Pressure : 154mmHg (HI) Diastolic Blood Pressure : 102mmHg (>HHI) NIBP Mean : 119mmHg BP Location : Left upper extremity Blood Pressure Cuff Size : Large YNES DIA - 07/14/2012 14:17 [facility] Source: [facility] [employer] Document Id: [id number] IX LEAD Miscellaneous - Ynes Dia L.PPiliNPili - 07/14/2012 2:13 PM CST Adult Community Outreach Manager Intake/History Adult Community Outreach Manager Intake/History Entered On: 07/14/2012 14:17 [facility] Performed On: 07/14/2012 14:13 [facility] by YNES DIA Intake Chief Complaint : possible shingles or a rash on stomache and groin area. Temperature Core : 36.4C(Converted to: 97.5DegF) (LOW) Peripheral Pulse Rate : 68/min Respiratory Rate : 20/min Systolic Blood Pressure : 158mmHg (HI) Diastolic Blood Pressure : 104mmHg (>HHI) NIBP Mean : 122mmHg BP Location : Left upper extremity Blood Pressure Cuff Size : Large Actual Weight : 151kg(Converted to: 332lb 14oz) Weight Source : Standing scale Dosing Weight Clinic : 151.00kg YNES DIA - 07/14/2012 14:13 [facility] Subjective Pain Symptoms : No YNES DIA - 07/14/2012 14:13 [facility] Dependent Habits Tobacco Use/Currently Using : No Smoking Status : Never smoker YNES DIA - 07/14/2012 14:13 [facility] Caffeine Use Grid Caffeine Use : Current Type : Soft drinks Frequency : Occasionally YNES DIA - 07/14/2012 14:13 [facility] Recreational Drug Use Grid Drug Use : None YNES DIA - 07/14/2012 14:13 [facility] Allergy Allergies (Active) Cipro Estimated Onset Date: Unspecified ; Created By: STEVE ANDREA CNP; Reaction Status: Active ;Category: Drug ; Substance: Cipro ; Type: Allergy ; Updated By: STEVE ANDREA CNP; Reviewed Date: 07/14/2012 14:13 [facility] Influenza Virus Vaccine Estimated Onset Date: Unspecified ; Reactions: diarrhea ; Created By: STEVE ANDREA CNP; Reaction Status: Active ; Category: Drug ; Substance: Influenza Virus Vaccine ; Type: Intolerance ; Updated By: STEVE ANDREA CNP; Reviewed Date: 07/14/2012 14:13 [facility] Source: [facility] POWERCHART Document Id: [id number] IX LEAD documented in this encounter Plan of Treatment Not on filedocumented as of this encounter Procedures Procedure Name Priority Date/Time Associated Comments Diagnosis LIPID PANEL, S Routine 07/14/2012 2:56 PM Results for this [facility] procedure are i n the results section. HEMOGLOBIN A1C, B Routine 07/14/2012 2:56 PM Resu lts for this [facility] procedure are i n the results section. COMPREHENSIVE Routine 07/14/2012 2:56 PM Results for this METABOLIC PANEL, S/P [facility] procedu re are in the results section. documented in this encounter Results (ABNORMAL) Lipid Panel (07/14/2012 2:56 PM [facility]AD) Patholo gist Method Time Signature Cholesterol, Total 154 0 - 200 POWERCHART MGDL HX HDL 43.0 40.0 - POWERCHART 60.0 MGDL Triglycerides 240 (H) 0 - 150 POWERCHART MGDL Calculated LDL 63 0 - 100 POWERCHART MGDL Specimen (Source) Anatomical Collection Method Collection Time Re ceived Time Location / / Volume Laterality Blood 07/14/2012 2:56 PM [facility] Mariluz Vieira M.D. LAB BLOOD ADD-ON Performing Organization Address City/State/ZIP Code Phon e Number POWERCHART (ABNORMAL) Hemoglobin A1c (07/14/2012 2:56 PM [facility]AD) P athologist Signature Hemoglobin A1c, 9.8 (H) 4.0 - 6.0 POWERCHART B Specimen (Source) Anatomical Collection Method Collection Time Re ceived Time Location / / Volume Laterality Blood 07/14/2012 2:56 PM [facility] Mariluz Vieira M.D. LAB BLOOD ADD-ON Performing Organization Address City/State/ZIP Code Phon e Number POWERCHART (ABNORMAL) CMP (Comprehensive Metabolic Panel) (07/14/2012 2:56 PM [facility] LEAD) [facility] gist Method Time Signature BUN (Blood Urea 18 7 - 23 POWERCHART Nitrogen), S MGDL Creatinine 1.0 0.9 - 1.4 POWERCHART MGDL Potassium, S 4.4 3.5 - 4.8 POWERCHART MMOLL Sodium, S 138 135 - 145 POWERCHART MMOLL Chloride, S 97 (L) 100 - 108 POWERCHART MMOLL CO2 Total 32 (H) 22 - 29 POWERCHART MMOLL Calcium, Total, S 9.4 8.5 - POWERCHART 10.5 MGDL Albumin, S 3.6 3.5 - 5.0 POWERCHART GMDL Alkaline 74 45 - 115 POWERCHART Phosphatase, S UNITL Aspartate 21 8 - 48 POWERCHART Aminotransferase UNITL (AST), S Alanine 33 21 - 72 POWERCHART Amniotransferase, LD UNITL Bilirubin, Total, S 1.0 0.1 - 1.0 POWERCHART MGDL Total Protein, S 6.7 6.3 - 8.2 POWERCHART MGDL BUN/Creatinine Ratio 18 POWERCHAR T HXeGFR (MDRD) >60 MLMIN POWERCHART eGFR Black/ >60 MLMIN POWERCHART Gambian Glucose, Fasting, S 165 (H) 70 - 99 POWERCHART MGDL Specimen (Source) Anatomical Collection Method Collection Time Re ceived Time Location / / Volume Laterality Blood 07/14/2012 2:56 PM [facility] Mariluz Vieira M.D. LAB BLOOD ADD-ON Performing Organization Address City/State/ZIP Code Phon e Number POWERCHART documented in this encounter Visit Diagnoses Not on filedocumented in this encounter
--- OUTSIDE RECORDS SUMMARY | 2022-07-29 10:56 | XMS_ITS | Encounter Summary ---
:1960 Author Organization [facility] Address [address] [place] [address] Care Team Providers Name Role Phone Unavailable Primary Care Provider Unavailable Encounter Details Date Type Department Care Team Description 04/08/2010 Hospital Encounter HX [facility] Jose José M.D. [address] [place] [phone] (Wo rk) Social History Tobacco Use Types Packs/Day Years Used Date Smoking Tobacco: Never Assessed Sex Assigned at Date Recorded Not on file documented as of this encounter Progress Notes Jose José M.D. - 04/08/2010 12:00 AM CDT [id number] IMPRESSION/REPORT/PLAN 1. Symptomatic left ureteral stone. PLAN Because of the patient's weight and size, I do not think that he is a good candidate for extracorporeal shock-wave lithotripsy, at least utilizing the portable Medstone lithotripsy table. As such, I am recommending that we proceed with ureteroscopy. This will be scheduled one week from today. I have warned him that we will be doing cystoscopy, in other words looking in the bladder, and then passing a ureteroscope up the ureter until the stone is identified. At that time, we will likely use a holmium laser, fracture the stone into smaller pieces, and remove the largest of them with a basket. A ureteral stent will be left in place temporarily. I advised the patient that this likely will aggravate his urinary frequency and urgency until the stent is removed. Under normal circumstances, we would leave the stent in place for approximately one week. If there is minor injury to the ureter, we may leave the stent in place for a longer period of time such as six weeks. If there is significant injury to the ureter, it may require surgery to fix. CHIEF COMPLAINT/REASON FOR VISIT Kidney stone. HISTORY OF PRESENT ILLNESS This is a 49-year-old male who has been having left flank pain for the last few days. He was seen in the emergency room and found to have a 6 mm. proximal left ureteral stone. He continues to have pain. He is trying to minimize the use of pain medications. His urological history is remarkable for having urgency and urge incontinence. He has seen Dr. Jarvis Heart at the [facility] for evaluation of this. It was felt that he had mild urgency with urge incontinence exacerbated by the use of diuretics. He also has a history of erectile dysfunction. The patient does not have a history of prior stones. CURRENT MEDICATIONS Post-visit Medication Reconciliation Per [facility] electronic medical record. ALLERGIES Per [facility] electronic medical record. SYSTEMS REVIEW For further details of systems review, please see separate personal history form dated 04/08/2010. PAST MEDICAL/SURGICAL HISTORY 1. Urge urinary incontinence 2. Hypertension 3. Hyperlipidemia 4. Type 2 diabetes mellitus 5. Erectile dysfunction SOCIAL HISTORY The patient is . He does not use tobacco, alcohol or recreational drugs. 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 FAMILY HISTORY Father is 83 and has a complicated medical history. Mother at 77 of diabetes and hypertension. VITAL SIGNS DATE/TIME 04/08/2010 WEIGHT 154.6 kg TEMPERATURE 35.8 degreesC RESP RATE 20 / min PULSE 84 SYSTOLIC 110 DIASTOLIC 74 PHYSICAL EXAM AREA EXAM TEXT GENERAL The patient is tall and weighs approximately 340 pounds. ABDOMEN Obese. No palpable masses. No costovertebral angle tenderness. DIAGNOSTICS CT scan is reviewed. He does have a 6 mm. proximal left ureteral stone. Perinephric stranding is also appreciated. /nmd Signed Jose José M.D. Urology Electronically Signed By:JOSE JOSÉ MD On 04/09/2010 03:57 PM [facility] Document Id: [id number] documented in this encounter Miscellaneous Notes Miscellaneous - Conversion, Historical Provider Ser - 04/08/2010 2:41 PM CDT Adult Crisis Nurse Intake/History Adult Crisis Nurse Intake/History Entered On: 04/08/2010 14:46 CDT Performed On: 04/08/2010 14:41 CDT by JAYASHREE SUTTON Intake Chief Complaint: Kidney stones Temperature Core: 35.8DegC(Converted to: 96.4DegF) (LOW) Peripheral Pulse Rate: 84bpm Respiratory Rate: 20br/min Systolic Blood Pressure: 110mmHg Diastolic Blood Pressure: 74mmHg NIBP Mean: 86mmHg BP Location: Right upper extremity Actual Weight: 154.600kg(Converted to: 340.835lb) Dosing Weight Clinic: 154.60kg JAYASHREE SUTTON - 04/08/2010 14:41 CDT Subjective Pain Symptoms: Yes JAYASHREE SUTTON - 04/08/2010 14:41 CDT Pain Pain Assessment Grid Pain 1 Location: Flank (Comment: left [JAYASHREE SUTTON 04/08/2010 14:41 CDT] ) Intensity: 5 JAYASHREE SUTTON 04/08/2010 14:41 CDT Dependent Habits Tobacco Use/Currently Using: No JAYASHREE SUTTON 04/08/2010 14:41 CDT Caffeine Use Grid Caffeine Use: Current Type: Soft drinks Frequency: Occasionally JAYASHREE SUTTON 04/08/2010 14:41 CDT Recreational Drug Use Grid Drug Use: None JAYASHREE SUTTON 04/08/2010 14:41 CDT Allergies Allergies (Active) Cipro Estimated Onset Date: Unspecified ; Created By: STEVE ANDREA CNP; Reaction Status: Active ;Category: Drug ; Substance: Cipro ; Type: Allergy ; Updated By: STEVE ANDREA CNP; Reviewed Date: 12/28/2009 9:39 CDT Source: [facility] POWERCHART Document Id: [id number] documented in this encounter Plan of Treatment Not on filedocumented as of this encounter Visit Diagnoses Not on filedocumented in this encounter
--- OUTSIDE RECORDS SUMMARY | 2022-07-29 10:56 | XMS_ITS | Encounter Summary ---
:1960 Author Organization [facility] Address [address] [place] [address] Care Team Providers Name Role Phone Unavailable Primary Care Provider Unavailable Encounter Details Date Type Department Care Team Description 02/26/2010 Hospital Encounter HX [facility] Cindy Moy, Soumya PRN, C.N.P. [address] [place], [place] [phone] (Wo rk) Social History Tobacco Use Types Packs/Day Years Used Date Smoking Tobacco: Never Assessed Sex Assigned at Date Recorded Not on file documented as of this encounter Plan of Treatment Not on filedocumented as of this encounter Visit Diagnoses Not on filedocumented in this encounter
--- OUTSIDE RECORDS SUMMARY | 2022-07-29 10:56 | XMS_ITS | Encounter Summary ---
:1960 Author Organization [facility] Address [address] [place] [address] Care Team Providers Name Role Phone Unavailable Primary Care Provider Unavailable Encounter Details Date Type Department Care Team Description 11/18/2011 Hospital Encounter HX [facility] Cindy Moy A PRN, C.N.P. [address] [place], [place] [phone] (Wo rk) Social History Tobacco Use Types Packs/Day Years Used Date Smoking Tobacco: Never Assessed Sex Assigned at Date Recorded Not on file documented as of this encounter Plan of Treatment Not on filedocumented as of this encounter Procedures Procedure Name Priority Date/Time Associated Diagnosis Comme nts ALBUMIN, RANDOM, U Routine 11/18/2011 8:49 AM Res ults for this CDT procedure are i n the results section. documented in this encounter Results (ABNORMAL) Microalbumin, Random, Urine (11/18/2011 8:49 AM CDT) P athologist Signature HXU Albumin % 300 MGDL POWERCHART Creatinine, 107 MGDL POWERCHART Random, U Albumin/Creati 280 (H) 0 - 17 POWERCHART nine Ratio MGGM Specimen (Source) Anatomical Collection Method Collection Time Re ceived Time Location / / Volume Laterality Urine 11/18/2011 8:49 AM CDT Cindy Moy APRN, C.N.P. LAB URINE ORDERABLES Performing Organization Address City/State/ZIP Code Phon e Number POWERCHART documented in this encounter Visit Diagnoses Not on filedocumented in this encounter
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
--- OUTSIDE RECORDS SUMMARY | 2022-07-29 10:56 | XMS_ITS | Encounter Summary ---
:1960 Author Organization [facility] Address [address] [place] [address] Care Team Providers Name Role Phone Unavailable Primary Care Provider Unavailable Encounter Details Date Type Department Care Team Description 07/24/2011 Hospital Encounter HX [facility] LAB Cindy Moy, Soumya PRN, C.N.P. [address] [place], [place] [phone] (Wo rk) Social History Tobacco Use Types Packs/Day Years Used Date Smoking Tobacco: Never Assessed Sex Assigned at Date Recorded Not on file documented as of this encounter Plan of Treatment Not on filedocumented as of this encounter Visit Diagnoses Not on filedocumented in this encounter
--- OUTSIDE RECORDS SUMMARY | 2022-07-29 10:56 | XMS_ITS | Encounter Summary ---
:1960 Author Organization [facility] Address [address] [place] [address] Care Team Providers Name Role Phone Unavailable Primary Care Provider Unavailable Encounter Details Date Type Department Care Team Description 07/30/2011 Hospital Encounter HX [facility] FB NURSE ONL Bhumi Moy, ORDERING MACHINE OPERATOR, C.N.P. [address] [place] [phone] (Wo rk) Social History Tobacco Use Types Packs/Day Years Used Date Smoking Tobacco: Never Assessed Sex Assigned at Date Recorded Not on file documented as of this encounter Miscellaneous Notes Miscellaneous - Samantha Grayson, L.P.N. - 07/30/2011 11:55 AM CST Ambulatory Vitals Height Weight Ambulatory Vitals Height Weight Entered On: 07/30/2011 11:55 FORESTRY AID Performed On: 07/30/2011 11:55 FORESTRY AID by SAMANTHA GRAYSON Vitals/Ht/Wt Systolic Blood Pressure : 132mmHg Diastolic Blood Pressure : 82mmHg NIBP Mean : 99mmHg SAMANTHA GRAYSON - 07/30/2011 11:55 FORESTRY AID Source: [facility] POWERCHART Document Id: [id number] FORESTRY AID!5 STRY AID documented in this encounter Plan of Treatment Not on filedocumented as of this encounter Visit Diagnoses Not on filedocumented in this encounter
--- OUTSIDE RECORDS SUMMARY | 2022-07-29 10:56 | XMS_ITS | Encounter Summary ---
:1960 Author Organization [facility] Address [address] [place] [address] Care Team Providers Name Role Phone Unavailable Primary Care Provider Unavailable Encounter Details Date Type Department Care Team Description 02/15/2010 Hospital Encounter HX [facility] Bhumi Andrea, HAKEEM, C.N.P. [address] [place] [phone] (Wo rk) Social History Tobacco Use Types Packs/Day Years Used Date Smoking Tobacco: Never Assessed Sex Assigned at Date Recorded Not on file documented as of this encounter Progress Notes Steve Andrea, HAKEEM, C.N.P. - 02/15/2010 12:00 AM CDT [id number] IMPRESSION/REPORT/PLAN 1. Diabetes type 2. Diabetes education today on new Accu Chek Jolie glucometer. I want him to start testing at least once a day preferably twice a day. Prescription was sent for strips and lancets. He demonstrated competency. 2. Hypertension currently well controlled. No changes. 3. Hyperlipidemia. Triglycerides are back and are still very high at 388. He definitely needs to work on weight loss program. He will recheck in 3 months. CHIEF COMPLAINT/REASON FOR VISIT 1. Diabetes type 2 2. Hypertension 3. Hyperlipidemia HISTORY OF PRESENT ILLNESS 1. Ed is here for diabetes recheck. He had A1C done before his appointment today. It is extremely elevated yet at 9.3. 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 I did talk to him about possibly seeing endocrinology. He doesn't want to do that. He is more interested in lap band for weight loss thinking that may be the answer. I have encouraged him to schedule with bariatric surgery to discuss options. 2. Hypertension currently well controlled. 3. Hyperlipidemia on Simvastatin with no adverse effects. CURRENT MEDICATIONS See Depart Summary from today ALLERGIES Cipro PREVENTIVE SERVICES He is due for Hemoccult. He has declined colonoscopy. He was given Hemoccult cards today and will return all three as soon as he can. VITAL SIGNS See EMR PHYSICAL EXAM AREA EXAM TEXT GENERAL Well developed obese male in no acute distress. SKIN Warm and dry. No rashes. HEAD HEENT unremarkable. HEART Heart regular rate and rhythm. LUNGS Lungs clear to auscultation. ABDOMEN Abdomen soft, nontender, no hepatosplenomegaly. SJM/clf Signed Steve Andrae, UMU, BILLING SUPERVISOR, CDE Family Nurse Practitioner Electronically Signed By:STEVE ANDREA CNP On 02/20/2010 09:33 AM Source: [facility] MHSDOLBEYNONRADSYS Document Id: [id number] documented in this encounter Nursing Notes Steve Andrea APRN, C.N.P. - 02/15/2010 10:24 AM CDT Diabetes Nurse Intake Diabetes Nurse Intake Entered On: 02/15/2010 10:27 CDT Performed On: 02/15/2010 10:24 CDT by STEVE ANDREA CNP Education Diabetes Education Grid Topics: Disease process, Treatment plan/options, Nutritional Management - Small Portions, Physical activity, Medications/Effectiveness - Oral Agents, Monitoring - Blood Glucose, Chronic Complications -Preventing Individuals Taught: Patient Barriers to Learning: Desire/Motivation, Financial concerns Teaching Method: Explanation Teaching Evaluation: Needs further teaching, Needs reinforcement, Verbalizes understanding Education Referral Made To: Other: Recommend apointment with bariatric surgeon STEVE ANDREA CNP - 02/15/2010 10:24 CDT Source: [facility] POWERCHART Document Id: [id number] CDT!10 Conversion, Historical Provider Ser - 02/15/2010 9:46 AM CDT Diabetes Nurse Intake Diabetes Nurse Intake Entered On: 02/15/2010 9:47 CDT Performed On: 02/15/2010 9:46 CDT by BEBO PYLE LPN Diabetes Nurse Intake Date of Last Foot Exam: 12/08/2009 CDT Date of Last Eye Exam: 11/02/2009 PRODUCER DIRECTOR BEBO PYLE LPN - 02/15/2010 9:46 CDT Source: [facility] POWERCHART Document Id: [id number] CDT!4 documented in this encounter Miscellaneous Notes Miscellaneous - Conversion, Historical Provider Ser - 02/15/2010 9:45 AM CDT Health Assessment Health Assessment Entered On: 02/15/2010 9:46 CDT Performed On: 02/15/2010 9:45 CDT by BEBO PYLE LPN Nutrition Weight Change > 10lbs in 6 Months: No BEBO PYLE LPN - 02/15/2010 9:45 CDT Functional Current Daily Living Assistance: None BEBO PYLE LPN - 02/15/2010 9:45 CDT Dependent Habits Tobacco Use/Currently Using: No Alcohol Use: No BEBO PYLE LPN - 02/15/2010 9:45 CDT Caffeine Use Grid Caffeine Use: Current Type: Soft drinks Frequency: Occasionally BEBO PYLE LPN - 02/15/2010 9:45 CDT Recreational Drug Use Grid Drug Use: None BEBO PYLE LPN - 02/15/2010 9:45 CDT Psychosocial Domestic Concerns: None BEBO PYLE LPN - 02/15/2010 9:45 CDT Advance Directive Advanced Directives: No BEBO PYLE LPN - 02/15/2010 9:45 CDT Educ Needs Learning Style Preference Adult Grid Patient: Verbal explanation Family: Verbal explanation BEBO PYLE LPN - 02/15/2010 9:45 CDT Source: [facility] Document Id: [id number] CDT!24 Miscellaneous - Conversion, Historical Provider Ser - 02/15/2010 9:44 AM CDT Adult Soil Biology Teacher Intake/History Adult Soil Biology Teacher Intake/History Entered On: 02/15/2010 9:45 CDT Performed On: 02/15/2010 9:44 CDT by BEBO PYLE LPN Intake Chief Complaint: recheck diabetes Temperature Core: 36.2DegC(Converted to: 97.2DegF) (LOW) Peripheral Pulse Rate: 76bpm Systolic Blood Pressure: 108mmHg Diastolic Blood Pressure: 62mmHg NIBP Mean: 77mmHg BP Location: Left upper extremity Actual Weight: 158.000kg(Converted to: 348.330lb) Dosing Weight Clinic: 158.00kg BEBO PYLE LPN - 02/15/2010 9:44 CDT Subjective Pain Symptoms: No BEBO PYLE LPN - 02/15/2010 9:44 CDT Dependent Habits Tobacco Use/Currently Using: No Alcohol Use: No BEBO PYLE LPN - 02/15/2010 9:44 CDT Caffeine Use Grid Caffeine Use: Current Type: Soft drinks Frequency: Occasionally BEBO YPLE LPN - 02/15/2010 9:44 CDT Recreational Drug Use Grid Drug Use: None BEBO PYLE LPN - 02/15/2010 9:44 CDT Allergies Allergies (Active) Cipro Estimated Onset Date: Unspecified ; Created By: STEVE ANDREA CNP; Reaction Status: Active ;Category: Drug ; Substance: Cipro ; Type: Allergy ; Updated By: STEVE ANDREA CNP; Reviewed Date: 12/28/2009 9:39 CDT Source: [facility] Document Id: [id number] CDT!24 documented in this encounter Plan of Treatment Not on filedocumented as of this encounter Visit Diagnoses Not on filedocumented in this encounter
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
--- OUTSIDE RECORDS SUMMARY | 2022-07-29 10:56 | XMS_ITS | Encounter Summary ---
:1960 Author Organization [facility] Address [address] [place] [address] Care Team Providers Name Role Phone Unavailable Primary Care Provider Unavailable Encounter Details Date Type Department Care Team Description 11/18/2011 Hospital Encounter HX [facility] Cindy Moy A PRN, C.N.P. [address] [place], [place] [phone] (Wo rk) Social History Tobacco Use Types Packs/Day Years Used Date Smoking Tobacco: Never Assessed Sex Assigned at Date Recorded Not on file documented as of this encounter Plan of Treatment Not on filedocumented as of this encounter Procedures Procedure Name Priority Date/Time Associated Diagnosis Comme nts HEMOGLOBIN A1C, B Routine 11/18/2011 8:53 AM Resu lts for this CDT procedure are i n the results section. documented in this encounter Results (ABNORMAL) Hemoglobin A1c (11/18/2011 8:53 AM CDT) P athologist Signature Hemoglobin A1c, 9.6 (H) 4.0 - 6.0 POWERCHART B Specimen (Source) Anatomical Collection Method Collection Time Re ceived Time Location / / Volume Laterality Blood 11/18/2011 8:53 AM CDT Cindy Moy APRN, C.N.P. LAB BLOOD ADD-ON Performing Organization Address City/State/ZIP Code Phon e Number POWERCHART documented in this encounter Visit Diagnoses Not on filedocumented in this encounter
--- OUTSIDE RECORDS SUMMARY | 2022-07-29 10:56 | XMS_ITS | Encounter Summary ---
:1960 Author Organization [facility] Address [address] [place] [address] Care Team Providers Name Role Phone Unavailable Primary Care Provider Unavailable Encounter Details Date Type Department Care Team Description 09/18/2010 Hospital Encounter HX [facility] Uriel Eid APRN, C.N.P. [address] [place] [phone] (Wo rk) Social History Tobacco Use Types Packs/Day Years Used Date Smoking Tobacco: Never Assessed Sex Assigned at Date Recorded Not on file documented as of this encounter Progress Notes Haleigh Eid APRN, C.N.P. - 09/18/2010 12:00 AM CST [id number] IMPRESSION/REPORT/PLAN Diabetic ischemic foot ulcer Procedural pause conducted to verify: Correct patient identity, procedure to be performed and as applicable, correct side and site, correct patient position and availability of special requirements. Wound was cleansed with wound wash. PCMX was used to cleanse wound. This was rinsed with saline and the wound was dried. Silvercel was applied and covered with a Band-Aid. He will have daily dressing changes and PRN dressing changes using Silvercel and a Band-Aid. He will be placed on Augmentin 500 mg t.i.d. for 10 days. He will not need to return to wound clinic unless his toe worsens. With his work schedule, he finds it very difficult to get into the clinic. CHIEF COMPLAINT/REASON FOR VISIT Wound care HISTORY OF PRESENT ILLNESS Ed comes in for wound on the second toe of his right foot. This is an area of pressure where his boots rub on his foot. He spends a lot of time at work in his boots. His Magali has been cleaning the area and putting antibiotic ointment on it. She was concerned that it was becoming red and infected. There is no pain in the toe. He denies any complaints with any review of systems. PHYSICAL EXAM AREA EXAM TEXT SKIN There is a small slit about .3 in length and .1 in width. This is a scabbed over area in the center of a hyperkeratotic area on his toe. There is some erythema proximal to the wound and there is hemosiderin changes and slight edema in his lower extremity. PVD/cmt Signed Haleigh Eid RN, ASSOCIATE PROFESSOR OF SOCIOLOGY Geriatric Nurse Practitioner Electronically Signed By:HALEIGH EID CNP On 09/20/2010 10:33 AM [facility] Document Id: [id number] PER CASHIER documented in this encounter Plan of Treatment Not on filedocumented as of this encounter Visit Diagnoses Not on filedocumented in this encounter
--- OUTSIDE RECORDS SUMMARY | 2022-07-29 10:56 | XMS_ITS | Encounter Summary ---
:1960 Author Organization [facility] Address [address] [place] [address] Care Team Providers Name Role Phone Unavailable Primary Care Provider Unavailable Encounter Details Date Type Department Care Team Description 02/19/2012 Hospital Encounter HX [facility] LAB Cindy Moy A PRN, C.N.P. [address] [place], [place] [phone] (Wo rk) Social History Tobacco Use Types Packs/Day Years Used Date Smoking Tobacco: Never Assessed Sex Assigned at Date Recorded Not on file documented as of this encounter Plan of Treatment Not on filedocumented as of this encounter Procedures Procedure Name Priority Date/Time Associated Comments Diagnosis HEMOGLOBIN A1C, B Routine 02/19/2012 9:32 AM Resu lts for this CDT procedure are i n the results section. BASIC METABOLIC Routine 02/19/2012 9:25 AM Result s for this PANEL, S/P CDT procedure are i n the results section. documented in this encounter Results (ABNORMAL) Hemoglobin A1c (02/19/2012 9:32 AM CDT) Analysis Performed At Patho logist Time Signature Hemoglobin A1c, 10.0 (H) 4.0 - 6.0 POWERCHART B Specimen (Source) Anatomical Collection Method Collection Time Re ceived Time Location / / Volume Laterality Blood 02/19/2012 9:32 AM CDT Cindy Moy APRN, C.N.P. LAB BLOOD ADD-ON Performing Organization Address City/State/ZIP Code Phon e Number POWERCHART (ABNORMAL) BMP (Basic Metabolic Panel) (02/19/2012 9:25 AM CDT) P athologist Signature BUN (Blood Urea 19 7 - 23 POWERCHART Nitrogen), S MGDL Creatinine 1.1 0.9 - 1.4 POWERCHART MGDL Potassium, S 4.6 3.5 - 4.8 POWERCHART MMOLL Sodium, S 137 135 - 145 POWERCHART MMOLL Chloride, S 96 (L) 100 - 108 POWERCHART MMOLL CO2 Total 31 (H) 22 - 29 POWERCHART MMOLL Calcium, Total, 9.3 8.5 - 10.5 POWERCHART S MGDL BUN/Creatinine 17 POWERCHART Ratio HXeGFR (MDRD) >60 MLMIN POWERCHART eGFR >60 MLMIN POWERCHART Black/ Glucose, 251 (H) 70 - 99 POWERCHART Fasting, S MGDL Specimen (Source) Anatomical Collection Method Collection Time Re ceived Time Location / / Volume Laterality Blood 02/19/2012 9:25 AM CDT Cindy Moy APRN, C.N.P. LAB BLOOD ADD-ON Performing Organization Address City/State/ZIP Code Phon e Number POWERCHART documented in this encounter Visit Diagnoses Not on filedocumented in this encounter
--- OUTSIDE RECORDS SUMMARY | 2022-07-29 10:56 | XMS_ITS | Encounter Summary ---
:1960 Author Organization [facility] Address [address] [place] [address] Care Team Providers Name Role Phone Unavailable Primary Care Provider Unavailable Encounter Details Date Type Department Care Team Description 04/11/2010 Hospital Encounter HX [facility] Bhumi Andrea, HAKEEM, C.N.P. [address] [place] [phone] (Wo rk) Social History Tobacco Use Types Packs/Day Years Used Date Smoking Tobacco: Never Assessed Sex Assigned at Date Recorded Not on file documented as of this encounter H&P Notes Steve Andrea APRN, C.N.P. - 04/11/2010 12:00 AM CDT [id number] IMPRESSION / REPORT / PLAN 1. Preoperative medical evaluation. Patient's active problems diagnostically and therapeutically optimized for planned procedure. He will be NPO after midnight the night before surgery. He will stop Metformin on 04-13-10. He is holding aspirin as of now. He will resume all medications after surgery. Appropriate paperwork completed and faxed over to [facility]. All of his questions were answered. He is class ASA II. CHIEF COMPLAINT / REASON FOR VISIT Pre-op physical exam, kidney stone HISTORY OF PRESENT ILLNESS Ed was seen in the emergency room and found to have 6 mm kidney stone. He is being seen at the request of Dr. José for medical evaluation prior to surgery. He is scheduled for kidney stone extraction with laser with Dr. José at [facility] on 04-15-10. CURRENT MEDICATIONS See Depart ALLERGIES Cipro SYSTEMS REVIEW The patient denies any visual pain or blurring, no diplopia. Denies any changes in hearing or disequilibrium. No nosebleeds or nasal discharge. No sores in the mouth or difficulty swallowing. No adenopathy in the neck or elsewhere. Denies any shortness of breath or palpitation. No angina or pressure in the chest. No nausea or vomiting. No change in bowel habits. No blood in the stool. No significant arthritis. No neurologic symptoms. No concern about any skin lesions. PAST MEDICAL / SURGICAL HISTORY 1. Diabetes type 2 2. Benign prostatic hypertrophy 3. Erectile dysfunction 4. Hyperlipidemia 5. Hypertension Past surgical history 1. Lumbar discectomy 1988 2. 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 SKIN Without lesion. EYES PERRLA, EOMs intact. Fundi sharp discs. Conjunctiva and lids normal. ENT Tympanic membranes clear bilaterally. Nasal mucosa without erythema or congestion. Mouth without erythema or exudate. LYMPH NODES Neck: Supple, without adenopathy, no thyromegaly. Carotid pulses are equal bilaterally. THYROID No thyromegaly. PERIPHERAL Femoral, dorsal, pedal and posterior tibial pulses are equal. VESSELS HEART Regular rate and rhythm without murmur. LUNGS Clear to auscultation, there is good inspiratory effort. ABDOMEN Soft, nontender, no palpable mass, no hepatosplenomegaly. SPINE Back straight without CVA tenderness. No cervical, thoracic or lumbar tenderness. JOINTS Normal range of motion. EXTREMITIES Warm, dry, no cyanosis or peripheral edema. MENTAL Alert and oriented times three. Grossly nonfocal. NEURO Reflexes are +2 and symmetrical. LABORATORIES CBC BMP EKG chest x-ray SJM/clf Signed Steve Andrea, MSN, FAMILY DINNER SERVICE SPECIALIST, CDE Family Nurse Practitioner Electronically Signed By:STEVE ANDREA CNP On 04/12/2010 09:26 AM Source: [facility] Document Id: [id number] documented in this encounter Miscellaneous Notes Miscellaneous - Steve Andrea APRN, C.N.P. - 04/11/2010 1:38 PM CDT Reminder Msg Document Contains Addenda Addendum by BEBO PYLE LPN on 01 May 2010 10:26:17 CDT Done. From: STEVE ANDREA CNP To: BEBO PYLE LPN Sent: 04/11/2010 13:38:19 CDT ! Show up: 04/11/2010 13:37:00 CDT Subject: Reminder Msg Actions: Notify patient of results Due Date/Time: 04/11/2010 13:37:00 CDT Source: [facility] [employer] Document Id: [id number] Miscellaneous - Steve Andrea APRN, C.N.P. - 04/11/2010 1:37 PM CDT Reminder Msg Document Contains Addenda Addendum by BEBO PYLE LPN on 01 May 2010 10:26:50 CDT Done. From: STEVE ANDREA CNP To: BEBO PYLE LPN Sent: 04/11/2010 13:37:36 CDT ! Show up: 04/11/2010 13:36:00 CDT Subject: Reminder Msg Actions: Notify patient of results Due Date/Time: 04/11/2010 13:36:00 CDT Source: [facility] [employer]ART Document Id: [id number] Miscellaneous - Steve Andrea APRN, C.N.P. - 04/11/2010 10:43 AM CDT Ambulatory Depart Summary [address] [address] Visit Information Name: LAZ LUNA Current Date: 04/11/2010 10:43:45 Primary Care Provider: STEVE ANDREA [facility] [phone] LAZ LUNA has been given the following list of medications: Your Medications It is important to take your medications as directed. Use a pill box or chart to help remind you to take your medications. Please let your doctor or nurse know if you have problems taking your medications. Medication/Strength Dose Route Frequency Indications/Special Instructions/Comments tramadol (tramadol 50 mg oral tablet) 2 tab(s) Oral every 6 hours as needed for Pain prochlorperazine (prochlorperazine 10 mg oral tablet) 1 tab(s) Oral four times a day as needed for Nausea tadalafil (Cialis 20 mg oral tablet) 1 tab(s) Oral once a day as needed for erectile dysfunction Take as needed prior to anticipated sexual activity metformin (metformin 1000 mg oral tablet) 1,000 mg Oral two times a day with meals simvastatin (simvastatin 40 mg oral tablet) 40 mg Oral once a day (at bedtime) hydrochlorothiazide-lisinopril (hydrochlorothiazide-lisinopril 25 mg-20 mg oral tablet) 1 tab(s) Oral once a day Exenatide (Byetta 10 mcg/dose-2.4ml Prefilled Pen) 10 mcg Subcutaneous two times a day within 60 minutes before morning and evening meals glimepiride (glimepiride 4 mg oral tablet) 8 mg Oral once a day with breakfast aspirin (aspirin 325 mg oral tablet) 1 tab(s) Oral once a day Additional Information: Yes - Current list of reconciled medications is provided and explained to the patient and/or family, guardian/caregiver. Source: [facility] Document Id: [id number] Electronically signed by Conversion, [facility] Patent Examiner [id number] at 02/09/2017 1:31 AM CDT Miscellaneous - Conversion, Historical Provider Ser - 04/11/2010 10:19 AM CDT Adult Boom Tender Intake/History Adult Boom Tender Intake/History Entered On: 04/11/2010 10:20 CDT Performed On: 04/11/2010 10:19 CDT by BEBO PYLE LPN Intake Chief Complaint: pre op surgery 04/15/2010 Temperature Core: 36.6DegC(Converted to: 97.9DegF) Peripheral Pulse Rate: 78bpm Respiratory Rate: 24br/min (HI) Systolic Blood Pressure: 120mmHg Diastolic Blood Pressure: 72mmHg NIBP Mean: 88mmHg BP Location: Right upper extremity Actual Weight: 153.000kg(Converted to: 337.307lb) Dosing Weight Clinic: 153.00kg BEBO PYLE LPN - 04/11/2010 10:19 CDT Subjective Pain Symptoms: No BEBO PYLE LPN - 04/11/2010 10:19 CDT Dependent Habits Tobacco Use/Currently Using: No Alcohol Use: No BEBO PYLE LPN - 04/11/2010 10:19 CDT Caffeine Use Grid Caffeine Use: Current Type: Soft drinks Frequency: Occasionally BEBO PYLE LPN - 04/11/2010 10:19 CDT Recreational Drug Use Grid Drug Use: None BEBO PYLE LPN - 04/11/2010 10:19 CDT Allergies Allergies (Active) Cipro Estimated Onset Date: Unspecified ; Created By: STEVE ANDREA CNP; Reaction Status: Active ;Category: Drug ; Substance: Cipro ; Type: Allergy ; Updated By: STEVE ANDREA CNP; Reviewed Date: 04/08/2010 14:46 CDT [facility] Document Id: [id number] documented in this encounter Plan of Treatment Not on filedocumented as of this encounter Procedures Procedure Name Priority Date/Time Associated Diagnosis Comme nts DX CHEST AP OR PA Routine 04/11/2010 10:32 AM Res ults for this AND LATERAL 2 VIEWS CDT procedur e are in the results section. documented in this encounter Results DX Chest AP or PA and Lateral 2 Views (04/11/2010 10:32 AM CDT) Anatomical Region Laterality Modality Chest N/A Radiographic Imaging Specimen (Source) Anatomical Collection Method Collection Time Re ceived Time Location / / Volume Laterality 04/11/2010 10:32 AM CDT Addenda Addendum by Provider, Keely Gonzalez 04/11/2010 10:32 AM CDT RAD^^^OW XR Chest 2 Views 04/11/2010 10:32:00 Addendum by Provider, Keely Gonzalez o n 04/11/2010 10:32 AM CDT RAD^^^MA XR CHEST 2 VIEWS 04/11/2010 10:32:00 Impressions 04/11/2010 11:24 AM CDT No definite acute findings. Suspect COPD. Narrative 04/11/2010 11:24 AM CDT HISTORY: Pre-operative clearance. ?? COMPARISON: None. ?? FINDINGS: Flattening of the diaphragms o n the lateral view suggests COPD. Heart size is at the upper limits of normal, borderline mildly enlarged but there is no evidence of CHF allowing for a suboptimal inspiratory effort on the frontal view. Mild thoracic aortic tortuosity. No acute bony findings. The lungs and pleural spaces appear to be clear of acute pathology al lowing for suboptimal inspiration on the frontal view. ?? Procedure Note Nathen Womack M.D. / Provider, Mickey jean M.D. - 01/29/2017 HISTORY: Pre-operative clearance. COMPARISON: None. FINDINGS: Flattening of the diaphragms o n the lateral view suggests COPD. Heart size is at the upper limits of normal, borderline mildly enlarged but there is no evidence of CHF allowing for a suboptimal inspiratory effort on the frontal view. Mild thoracic aortic tortuosity. No acute bony findings. The lungs and pleural spaces appear to be clear of acute pathology al lowing for suboptimal inspiration on the frontal view. IMPRESSION: No definite acute findings. Suspect COPD. Roselyn Reynolds R.T.(R), R.T.(R)(M) IMG DIAGNOSTIC IM AGING PROCEDURES documented in this encounter Visit Diagnoses Not on filedocumented in this encounter
--- OUTSIDE RECORDS SUMMARY | 2022-07-29 10:56 | XMS_ITS | Encounter Summary ---
:1960 Author Organization [facility] Address [address] [place] [address] Care Team Providers Name Role Phone Unavailable Primary Care Provider Unavailable Encounter Details Date Type Department Care Team Description 02/19/2012 Hospital Encounter HX [facility] Bhumi Andrea, HAKEEM, C.N.P. [address] [place] [phone] (Wo rk) Social History Tobacco Use Types Packs/Day Years Used Date Smoking Tobacco: Never Assessed Sex Assigned at Date Recorded Not on file documented as of this encounter Last Filed Vital Signs Vital Sign Reading Time Taken Comments Blood Pressure 144/86 02/19/2012 9:35 AM CDT Pulse 72 02/19/2012 9:32 AM CDT Temperature - - Respiratory Rate 18 02/19/2012 9:32 AM CDT Oxygen Saturation - - Inhaled Oxygen Concentration - - Weight 160 kg (353 lb 9.9 oz) 02/19/2012 9:32 AM CDT Height 180 cm (5' 10.87) 02/19/2012 9:32 AM CDT Body Mass Index 49.51 02/19/2012 9:32 AM CDT documented in this encounter Progress Notes tSeve Andrea APRN, C.N.P. - 02/19/2012 12:00 AM CDT [id number] CHIEF COMPLAINT/ REASON FOR VISIT 1. Diabetes type 2 uncontrolled. 2. Hyperlipidemia 3. Hypertension uncontrolled HISTORY OF PRESENT ILLNESS Ed is here for recheck. He had labs done this morning. His A1c has gone up from 9.6 last time to 10 this time. His blood pressure is also elevated today. He states he was off work a while with the inactivity he has gained some weight. His last LDL was less than 100. Today we did spend time talking about physical activity and weight loss again. He needs to really work on that. He is eating too large of portions especially late at night. For his blood pressure we need to increase his metoprolol. His lisinopril was at 30 milligrams daily CURRENT MEDICATIONS See depart summary from today ALLERGIES See EMR SYSTEMS REVIEW Positive for that mentioned in history of present illness and noted in past medical history in the EMR. All other systems were reviewed and were negative. PREVENTIVE: He was updated on pertussis and on tetanus today with Adacel, will be due for dilated eye exam in March orders are in for him to schedule, due for colonoscopy will do Hemoccult cards times three VITAL SIGNS See EMR PHYSICAL EXAM GENERAL: Well developed obese male in no acute distress. SKIN: Warm and dry. ENT: TMs clear. Throat clear. NECK: Supple. No lymphadenopathy or thyromegaly. HEART: Regular rate and rhythm S1, S2 no murmur. LUNGS: Clear to auscultation. ABDOMEN: Soft, nontender, hepatosplenomegaly. EXTREMITIES: 2+ peripheral edema. IMPRESSION/REPORT/PLAN 1. Diabetes type 2 uncontrolled. He is going to work on diet and exercise. He is already on Byetta and metformin and glimepiride. 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 He again talked about gastric bypass today and I will do referral if he decides he is going to look into that further. 2. Hypertension. Increase metoprolol to 50 milligrams twice daily. Check blood pressure weekly. Return here for blood pressure recheck in 1 week. 3. Hyperlipidemia doing well on simvastatin without adverse effects. No changes and I will see him back for A1c in 3 months SJM/clf Signed Steve Andrea, MSN, SHELL FREEZING MACHINE OPERATOR, CDE Family Nurse Practitioner Electronically Signed By: SETVE ANDREA CNP On: 02/19/2012 12:02 PM Source: [facility] [place] MHSDOLBEYNONRADSYS Document Id: [id number] documented in this encounter Miscellaneous Notes Miscellaneous - Steve Andrea APRN, C.N.P. - 02/19/2012 9:51 AM CDT Ambulatory Patient Summary [address] [address] Visit Information Name: LAZ LUNA Current Date: 02/19/2012 09:51:42 Physicians Attending Provider: STEVE ANDREA CNP Primary Care Provider: SETVE ANDREA CNP Your Medications Here is a list of your medications. It is important to take your medications as directed. Use a pillbox or chart to help remind you to take your medications. Please let your doctor or nurse know if you have problems taking your medications. Medication/Strength Dose Route Frequency Indications/Special Instructions/Comments Exenatide (Byetta 10 mcg/dose-2.4ml Prefilled Pen) 10 mcg Subcutaneous two times a day within 60 minutes before morning and evening meals metformin (metformin 1000 mg oral tablet) 1,000 mg Oral two times a day with meals simvastatin (simvastatin 40 mg oral tablet) 40 mg Oral once a day (at bedtime) furosemide (Lasix 20 mg oral tablet) 20 mg Oral once a day lisinopril (lisinopril 30 mg oral tablet) 30 mg Oral once a day allopurinol (allopurinol 300 mg oral tablet) 300 mg Oral once a day omeprazole (omeprazole 20 mg oral delayed release capsule) 20 mg Oral once a day metoprolol (metoprolol tartrate 25 mg oral tablet) 25 mg Oral two times a day glimepiride (glimepiride 4 mg oral tablet) 8 mg Oral once a day with breakfast hydrocortisone topical (hydrocortisone topical 2.5% cream) 1 [...] 12/28/2009 Optic disc cupping Active 03/31/2011 Your Upcoming Appointments Date Time Location Reason Provider No Appointments found Your Goals/Additional instructions: Source: [facility] [place] [employer] Document Id: [id number] Miscellaneous - Steve Andrea APRN, C.N.P. - 02/19/2012 9:51 AM CDT Ambulatory Depart Summary [address] [address] Visit Information Name: LAZ LUNA Visit Date: 02/19/2012 09:51:42 Attending Provider: STEVE ANDREA CNP Primary Care Provider: STEVE ANDREA CNP LAZ LUNA has been given the following list of medications: Your Medications It is important to take your medications as directed. Use a pill box or chart to help remind you to take your medications. Please let your doctor or nurse know if you have problems taking your medications. Medication/Strength Dose Route Frequency Indications/Special Instructions/Comments Exenatide (Byetta 10 mcg/dose-2.4ml Prefilled Pen) 10 mcg Subcutaneous two times a day within 60 minutes before morning and evening meals metformin (metformin 1000 mg oral tablet) 1,000 mg Oral two times a day with meals simvastatin (simvastatin 40 mg oral tablet) 40 mg Oral once a day (at bedtime) furosemide (Lasix 20 mg oral tablet) 20 mg Oral once a day lisinopril (lisinopril 30 mg oral tablet) 30 mg Oral once a day allopurinol (allopurinol 300 mg oral tablet) 300 mg Oral once a day omeprazole (omeprazole 20 mg oral delayed release capsule) 20 mg Oral once a day metoprolol (metoprolol tartrate 25 mg oral tablet) 25 mg Oral two times a day glimepiride (glimepiride 4 mg oral tablet) 8 mg Oral once a day with breakfast hydrocortisone topical (hydrocortisone topical 2.5% cream) 1 [...] provider for clarification. Additional Information: Source: [facility] [place] POWERCHART Document Id: [id number] Miscellaneous - Samantha Chavez L.P.N. - 02/19/2012 9:35 AM CDT Ambulatory Vitals Height Weight Ambulatory Vitals Height Weight Entered On: 02/19/2012 9:36 CDT Performed On: 02/19/2012 9:35 CDT by SAMANTHA CHAVEZ Vitals/Ht/Wt Systolic Blood Pressure : 144mmHg (HI) Diastolic Blood Pressure : 86mmHg NIBP Mean : 105mmHg SAMANTHA CHAVEZ - 02/19/2012 9:35 CDT Source: [facility] [place] POWERCHART Document Id: [id number] Miscellaneous - Samantha Chavez L.P.N. - 02/19/2012 9:32 AM CDT Adult Director Of Volunteer Services Intake/History Adult Director Of Volunteer Services Intake/History Entered On: 02/19/2012 9:34 CDT Performed On: 02/19/2012 9:32 CDT by SAMANTHA CHAVEZ Intake Chief Complaint : Diabetes Temperature Core : 36.8C(Converted to: 98.2DegF) Peripheral Pulse Rate : 72/min Respiratory Rate : 18/min Systolic Blood Pressure : 148mmHg (HI) Diastolic Blood Pressure : 88mmHg NIBP Mean : 108mmHg Height : 180cm(Converted to: 5ft 11inch(es), 70.87inch(es)) Actual Weight : 160.4kg(Converted to: 353lb 10oz) Dosing Weight Clinic : 160.40kg Clinic BSA : 2.83 Body Mass Index : 49.51kg/m2 SAMANTHA CHAVEZ - 02/19/2012 9:32 CDT Subjective Pain Symptoms : No SAMANTHA CHAVEZ - 02/19/2012 9:32 CDT Dependent Habits Tobacco Use/Currently Using : No Smoking Status : Never smoker SAMANTHA CHAVEZ - 02/19/2012 9:32 CDT Caffeine Use Grid Caffeine Use : Current Type : Soft drinks Frequency : Occasionally SAMANTHA CHAVEZ - 02/19/2012 9:32 CDT Recreational Drug Use Grid Drug Use : None SAMANTHA CHAVEZ - 02/19/2012 9:32 CDT Allergy Allergies (Active) Cipro Estimated Onset [...] Reviewed Date: 12/05/2010 10:10 CDT Source: [facility] [place] [employer] Document Id: [id number] documented in this encounter Plan of Treatment Not on filedocumented as of this encounter Visit Diagnoses Not on filedocumented in this encounter
--- OUTSIDE RECORDS SUMMARY | 2022-07-29 10:56 | XMS_ITS | Encounter Summary ---
:1960 Author Organization [facility] Address [address] [place] [address] Care Team Providers Name Role Phone Unavailable Primary Care Provider Unavailable Encounter Details Date Type Department Care Team Description 04/08/2010 Hospital Encounter [facility]X [facility] Bhumi Andrea, HAKEEM, C.N.P. [address] [place] [phone] (Wo rk) Social History Tobacco Use Types Packs/Day Years Used Date Smoking Tobacco: Never Assessed Sex Assigned at Date Recorded Not on file documented as of this encounter Progress Notes Steve Andrea APRN, C.N.P. - 04/08/2010 12:00 AM CDT [id number] IMPRESSION/REPORT/PLAN 1. Kidney stone per CT scan. Dr. José Urologist has opening at 2:15 today we are going to schedule Ed for consultation. He will continue with Tramadol as needed for pain and continue to strain urine. 2. Diabetes type 2. Diabetes education today on importance of daily monitoring of blood glucose. He was given refill on Accu Chek Jolie strips and will be due for A1C in 1 month. CHIEF COMPLAINT/REASON FOR VISIT 1. Kidney stone 2. Diabetes type 2 HISTORY OF PRESENT ILLNESS 1. Ed states he was in the emergency room on 04-06-10. He had back pain. CT scan showed a 6 mm kidney stone. He was given Tramadol. Later called back for antinausea medication. He has been straining his urine, has not passed the stone. He continues to significant discomfort. 2. He has history of diabetes type 2. He needs refill on Accu Chek Jolie strips. CURRENT MEDICATIONS See Depart ALLERGIES Cipro PREVENTIVE SERVICES Up to date see EMR VITAL SIGNS See EMR PHYSICAL EXAM AREA EXAM TEXT GENERAL Well developed well nourished male who appears uncomfortable. HEAD HEENT unremarkable. HEART Heart regular rate and rhythm. LUNGS Lungs clear to auscultation. ABDOMEN Abdomen soft, , no distension, no focal mass, no hepatosplenomegaly. SJM/clf Signed Steve Fernandez. Farzaneh, MSN, TERMINAL MANAGER, CDE Family Nurse Practitioner Electronically Signed By:STEVE ANDREA CNP On 04/10/2010 01:08 PM Source: [facility] [email or web address] Document Id: [id number] documented in this encounter Nursing Notes Conversion, Historical Provider Ser - 04/23/2010 9:15 AM CDT Patient calls this morning stating he has had a NJ since last night and is having a sensation of pins and needles in his left hand and right leg and foot per SJM advised to go to the emergency room. Patient states he has to go to work because he has not worked for 2 weeks and he is broke. Not sure if he will go to ER. Electronically Signed By:BEBO PYLE LPN On 04/23/2010 09:18 am Source: [facility] POWERCHART Document Id: [id number] Steve Andrea APRN, C.N.P. - 04/08/2010 12:20 PM CDT Congressional Assistant Intake (Adult) Document Has Been Updated Congressional Assistant Intake (Adult) Entered On: 04/08/2010 12:22 CDT Performed On: 04/08/2010 12:20 CDT by STEVE ANDREA CNP Assessment Program Type: Non-Program Diabetes Referring Provider: STEVE ANDREA CNP Special needs: None Method Used for DSME: Individual Last Educator Visit Date: 04/08/2010 CDT Diabetes Type: Type 2 19 years and older Ethnicity: White/ Current Treatment: Byetta, Oral agents Medication Compliance: Takes meds as prescribed Diabetes Medications Reviewed: Yes Medication Categories: Biguanide, Incretin Glucose Meter: Accu-Chek Jloie Monitoring Frequency: Once daily Glucose Results: Fasting STEVE ANDREA CNP - 04/08/2010 12:20 CDT Foot Problems No foot problems: Left, Right STEVE ANDREA CNP - 04/08/2010 12:20 CDT BRIT DIAZ LPN - 09/04/2010 11:43 [employer] Exercise Type: None Time Spent With Patient: 15 Minutes STEVE ANDREA CNP - 04/08/2010 12:20 CDT Education Diabetes Education Grid Topics: Disease process, Medications/Effectiveness - Oral Agents, Monitoring - Blood Glucose, Using Results - Blood Glucose, Chronic Complications - Preventing Individuals Taught: Patient Barriers to Learning: None evident Teaching Method: Explanation Teaching Evaluation: Verbalizes understanding STEVE ANDREA CNP - 04/08/2010 12:20 CDT Source: [facility] [employer]t Document Id: [id number] [employer]!4 [employer] documented in this encounter Miscellaneous Notes Miscellaneous - Steve Andrea APRN, C.N.P. - 04/08/2010 12:24 PM CDT Ambulatory Depart Summary [address] [address] Visit Information Name: NOEMÍ LUNA Current Date: 04/08/2010 12:24:00 Primary Care Provider: STEVE ANDREA CNP [id number] NOEMÍ LUNA has been given the following [...] a day with breakfast hydrocortisone topical (hydrocortisone 1%) Topical once a day emollients, topical (Eucerin topical cream) 1 jannie Topical once a day furosemide (furosemide 80 mg oral tablet) 40 mg Oral once a day aspirin (aspirin 325 mg oral tablet) 1 tab(s) Oral once a day Additional Information: Yes - Current list of reconciled medications is provided and explained to the patient and/or family, guardian/caregiver. 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 Intake/History Entered On: 04/08/2010 11:51 CDT Performed On: 04/08/2010 11:50 CDT by BEBO PYLE LPN Intake Chief Complaint: back pain seen in ER on 04/06/2010 CT scan done kidney stones Temperature Core: 36.5DegC(Converted to: 97.7DegF) Peripheral Pulse Rate: 64bpm Systolic Blood Pressure: 122mmHg Diastolic Blood Pressure: 70mmHg NIBP Mean: 87mmHg BP Location: Right upper extremity Actual Weight: 154.500kg(Converted to: 340.614lb) Dosing Weight Clinic: 154.50kg BEBO PYLE MARÍA ELENA [employer] - 04/08/2010 11:50 CDT Subjective Pain Symptoms: No BEBO PYLE MARÍA ELENA ZURITA - 04/08/2010 11:50 CDT Dependent Habits Tobacco Use/Currently Using: No Alcohol Use: No BEBO PYLE MARÍA ELENA ZURITA - 04/08/2010 11:50 CDT Caffeine Use Grid Caffeine Use: Current Type: Soft drinks Frequency: Occasionally LASHANDABEBO MARÍA ELENA [employer] - 04/08/2010 11:50 CDT Recreational Drug Use Grid Drug Use: None LASHANDABEBO MARÍA ELENA [employer] - 04/08/2010 11:50 CDT Allergies Allergies (Active) Cipro Estimated Onset Date: Unspecified ; Created By: STEVE ANDREA CNP; Reaction Status: Active ;Category: Drug ; Substance: Cipro ; Type: Allergy ; Updated By: STEVE ANDREA CNP; Reviewed Date: 12/28/2009 9:39 CDT Source: [employer] Document Id: [id number] CDT!24 documented in this encounter Plan of Treatment Not on filedocumented as of this encounter Visit Diagnoses Not on filedocumented in this encounter
--- OUTSIDE RECORDS SUMMARY | 2022-07-29 10:56 | XMS_ITS | Encounter Summary ---
:1960 Author Organization [facility] Address [address] [place] [address] Care Team Providers Name Role Phone Unavailable Primary Care Provider Unavailable Encounter Details Date Type Department Care Team Description 03/03/2012 Hospital Encounter HX [facility] Cindy Moy A PRN, C.N.P. [address] [place], [place] [phone] (Wo rk) Social History Tobacco Use Types Packs/Day Years Used Date Smoking Tobacco: Never Assessed Sex Assigned at Date Recorded Not on file documented as of this encounter Plan of Treatment Not on filedocumented as of this encounter Procedures Procedure Name Priority Date/Time Associated Diagnosis Comme nts HX STOOL OCCULT Routine 03/03/2012 8:00 AM Result s for this BLOOD - DAY 3 CDT procedure are in the results section. HX STOOL OCCULT Routine 03/02/2012 8:00 AM Result s for this BLOOD - DAY 2 CDT procedure are in the results section. HX STOOL OCCULT Routine 03/01/2012 8:00 AM Result s for this BLOOD- DAY 1 CDT procedure are i n the results section. documented in this encounter Results HX STOOL OCCULT BLOOD - DAY 3 (03/03/2012 8:00 AM CDT) P athologist Signature Occult Blood - Negative POWERCHART 3, Fecal Specimen (Source) Anatomical Collection Method Collection Time Re ceived Time Location / / Volume Laterality Stool 03/03/2012 8:00 AM CDT Cindy Moy APRN, C.N.P. LAB HISTORICAL ORDERS Performing Organization Address [facility] Phon e Number POWERCHART HX STOOL OCCULT BLOOD - DAY 2 (03/02/2012 8:00 AM CDT) athologist Signature Occult Blood - Negative POWERCHART 2, Fecal Specimen (Source) Anatomical Collection Method Collection Time Re ceived Time Location / / Volume Laterality Stool 03/02/2012 8:00 AM CDT Kalia Grier APRN.N.P. LAB HISTORICAL ORDERS Performing Organization Address [facility] Phon e Number POWERCHART HX STOOL OCCULT BLOOD- DAY 1 (03/01/2012 8:00 AM CDT) athologist Signature HXOccult Bld Negative Negative POWERCHART Stl I Specimen (Source) Anatomical Collection Method Collection Time Re ceived Time Location / / Volume Laterality Stool 03/01/2012 8:00 AM CDT Kalia Grier APRN.N.P. LAB HISTORICAL ORDERS Performing Organization Address [facility] Phon e Number POWERCHART documented in this encounter Visit Diagnoses Not on filedocumented in this encounter
--- OUTSIDE RECORDS SUMMARY | 2022-07-29 10:56 | XMS_ITS | Encounter Summary ---
:1960 Author Organization [facility] Address [address] [place] [address] Care Team Providers Name Role Phone Unavailable Primary Care Provider Unavailable Encounter Details Date Type Department Care Team Description 11/18/2012 Hospital Encounter HX [facility] Bhumi Andrea, HAKEEM, C.N.P. [address] [place] [phone] (Wo rk) Social History Tobacco Use Types Packs/Day Years Used Date Smoking Tobacco: Never Assessed Sex Assigned at Date Recorded Not on file documented as of this encounter Last Filed Vital Signs Vital Sign Reading Time Taken Comments Blood Pressure 138/86 11/18/2012 1:04 PM CDT Pulse 72 11/18/2012 1:04 PM CDT Temperature - - Respiratory Rate 16 11/18/2012 1:04 PM CDT Oxygen Saturation - - Inhaled Oxygen Concentration - - Weight 163 kg (359 lb 5.6 oz) 11/18/2012 1:04 PM CDT Height 180 cm (5' 10.87) 11/18/2012 1:04 PM CDT Body Mass Index 50.31 11/18/2012 1:04 PM CDT documented in this encounter Progress Notes Steve Andrea APRN, C.N.P. - 11/18/2012 12:56 PM CDT [id number] CHIEF COMPLAINT/REASON FOR VISIT 1. Diabetes type II, uncontrolled 2. Hypertension 3. Hyperlipidemia 4. Urge incontinence 5. Right hip pain HISTORY OF PRESENT ILLNESS 1. Ed is here for a recheck. He has history of diabetes type II, uncontrolled. He did have A1c drawntoday, it is extremely high at 10.7. He wanted to discuss gastric bypass again today. He was scheduled at [place], but canceled the appointment. He is now reconsidering. We are also checking microalbumin today and he is currently being treated with maximum doses of Byetta, metformin and glimepiride. He is completely resistant to starting insulin. 2. Hypertension. Blood pressure is just under goal today. He is currently on lisinopril 30 mg daily and metoprolol 50 mg 1 twice daily. We will continue to monitor blood pressure carefully. 3. Hyperlipidemia. Currently on simvastatin 40 mg daily. He is having no adverse effects. He will bedue for fasting lipids again July. LDL is at goal. 4. Urge incontinence. 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 He feels that much of the problem is due to his obesity. He will check urine today for UTI. 5. He has been having some discomfort in his right hip. We will get x-ray for further evaluation. CURRENT MEDICATIONS See depart summary from today. ALLERGIES Cipro and influenza virus vaccine SYSTEMS REVIEW Positive for that mentioned in the history of present illness and noted in the past medical history in the EMR, all other systems were reviewed and were negative. PREVENTIVE Due for dilated eye exam, advised to schedule. VITAL SIGNS See EMR PHYSICAL EXAMINATION GENERAL: Well-developed obese male in no acute distress. SKIN: Warm and dry. HEART: Regular rate and rhythm. LUNGS: Clear to auscultation. ABDOMEN: Soft, nontender, no hepatosplenomegaly. JOINTS: Right hip: Some discomfort over the anterior hip with palpation. Some discomfort with external rotation. IMPRESSION/REPORT/PLAN 1. Diabetes type II, uncontrolled. Ed is going to talk with his . I have recommended the two of them see the dietitian again. He will need to do that before gastric bypass any way. He wants to see what his schedule looks like and will call. Orders are in for him to check A1c again in 3 months. 2. Hypertension, currently controlled, no changes. 3. Hyperlipidemia, doing well on simvastatin. 4. Urge incontinence. Discussed options including discontinuing Lasix. He does not want to do that, he gets too much swelling in his lower extremities. He is going to consider incontinence pads. I alsorecommended he see Urology back. He has a urologist in [place] that he has seen in the past and he will call for an appointment with her again. 5. Right hip pain. X-ray of the right hip is negative. If symptoms continue, we will have him see physical therapy. Steve Andrea CNP/jostin DOCID: [id number] Electronically Signed By: STEVE ANDREA CNP On: 11/21/2012 04:27 PM Source: [facility] [email or web address] Document Id: [id number] documented in this encounter Nursing Notes Steve Andrea APRN, C.N.P. - 11/18/2012 1:24 PM CDT Hand Stoner Intake (Adult) Hand Stoner Intake (Adult) Entered On: 11/18/2012 13:30 CDT Performed On: 11/18/2012 13:24 CDT by STEVE ANDREA CNP Assessment Program Type : Non-Program Diabetes Referring Provider : STEVE ANDREA CNP Special needs : None Method Used for DSME : Individual Last Educator Visit Date : 11/18/2012 CDT Diabetes Type : Type 2 19 years and older Ethnicity : White/ Current Treatment : Byetta, Oral agents Medication Compliance : Takes meds as prescribed Diabetes Medications Reviewed : Yes Medication Categories : Biguanide, Incretin Glucose Meter : Accu-Chek Jolie Monitoring Frequency : Once daily Glucose Results : Fasting STEVE ANDREA CNP - 11/18/2012 13:24 CDT Foot Problems No foot problems : Left, Right STEVE ANDREA CNP - 11/18/2012 13:24 CDT Exercise Type : None Time Spent With Patient : 15 Minutes STEVE ANDREA CNP - 11/18/2012 13:24 CDT Education Diabetes Education Grid Topics : Monitoring - Blood Glucose, Using Results - Blood Glucose, Acute Complications - Preventing, Chronic Complications - Preventing, Problem Solving/Goal Setting - Compliance Strategies, Problem Solving/Goal Setting - Treatment/Management Goals, Psychosocial Adjustment - Coping/Care Regimen Individuals Taught : Patient Barriers to Learning : Desire/Motivation, Financial concerns Teaching Method : Demonstration, Explanation Teaching Evaluation : Needs reinforcement, Verbalizes understanding STEVE ANDREA CNP - 11/18/2012 13:24 CDT Comprehensive Program Goals Diabetes Education Goals Grid Diabetes Education Goal #1 row Diabetes Education Goal #2 row Diabetes Education Goal #3 row Date Goal Set : 11/18/2012 CDT 11/18/2012 CDT 11/18/2012 CDT Goal : A1c less than 8.0 weight loss regular exercise Related Content Area : Medication Healthy eating Exercise/activity STEVE ANDREA CNP - 11/18/2012 13:24 CDT STEVE ANDREA CNP - 11/18/2012 13:24 CDT PHYLLIS ANDREA CNP - 11/18/2012 13:24 CDT [facility] Document Id: [id number] documented in this encounter Miscellaneous Notes Miscellaneous - Steve Andrea APRN, C.N.P. - 11/18/2012 4:42 PM CDT Ambulatory Patient Summary [address] [address] Visit Information Name: [facility] Number: [id number] Current Date: 11/18/2012 16:42:37 Physicians Attending Provider: STEVE ANDREA CNP Primary [...] mg Oral once a day (at bedtime) glimepiride (glimepiride 4 mg oral tablet) 8 mg Oral once a day with breakfast lisinopril (lisinopril 30 mg oral tablet) 45 mg Oral once a day Exenatide (Byetta 10 mcg/dose-2.4ml Prefilled Pen) 10 mcg Subcutaneous two times a day within 60 minutes before morning and evening meals hydrocortisone topical (hydrocortisone 2.5% topical lotion) 1 jannie Topical three times a day omeprazole (omeprazole 20 mg oral delayed release capsule) 20 mg Oral once a day allopurinol (allopurinol 300 mg oral tablet) 300 mg Oral once a day metoprolol (metoprolol [...] Closed Radial head Active 09/29/2012 09/30/12 left Your Upcoming Appointments Date Time Location Reason Provider No Appointments found Your Goals/Additional instructions: Source: [facility] POWERCHART Document Id: [id number] Miscellaneous - Steve Andrea APRN, C.N.P. - 11/18/2012 4:42 PM CDT Ambulatory Depart Summary [place] [id number] [facility] [place] [address] Visit Information Name: [facility] Number: [id number] Visit Date: 11/18/2012 16:42:36 Attending Provider: STEVE ANDREA CNP Primary Care [...] mg Oral once a day (at bedtime) glimepiride (glimepiride 4 mg oral tablet) 8 mg Oral once a day with breakfast lisinopril (lisinopril 30 mg oral tablet) 45 mg Oral once a day Exenatide (Byetta 10 mcg/dose-2.4ml Prefilled Pen) 10 mcg Subcutaneous two times a day within 60 minutes before morning and evening meals hydrocortisone topical (hydrocortisone 2.5% topical lotion) 1 jannie Topical three times a day omeprazole (omeprazole 20 mg oral delayed release capsule) 20 mg Oral once a day allopurinol (allopurinol 300 mg oral tablet) 300 mg Oral once a day metoprolol (metoprolol [...] your provider for clarification. Additional Information: Source: [facility] POWERCHART Document Id: [id number] Miscellaneous - Steve Andrea APRN, C.N.P. - 11/18/2012 1:21 PM CDT Quality Measures Quality Measures Entered On: 11/18/2012 13:21 CDT Performed On: 11/18/2012 13:21 CDT by STEVE ANDREA CNP Diabetes Date of Last Foot Exam : 11/18/2012 CDT Date of Last Diabetes Education : 11/18/2012 CDT STEVE ANDREA CNP - 11/18/2012 13:21 CDT Foot Exam Grid Left foot exam Right foot exam Dorsalis Pedis Pulse : Normal Normal Capillary Refill : Less than 3 seconds Less than 3 seconds 10 gm Monofilament Sensation Check : Intact Intact STEVE ANDREA CNP - 11/18/2012 13:21 CDT STEVE ANDREA CNP - 11/18/2012 13:21 CDT [facility] Document Id: [id number] Miscellaneous - Marcial Chavez L.P.N. - 11/18/2012 1:08 PM CDT Health Assessment Health Assessment Entered On: 11/18/2012 13:08 CDT Performed On: 11/18/2012 13:08 CDT by MARCIAL CHAVEZ Health Assessment Complete Health Assessment Complete or Modified : Annual Health Assessment Annual Health Assessment Completed : Yes MARCIAL CHAVEZ - 11/18/2012 13:08 CDT Nutrition Nutrition Risk Factors by History Adult : None MARCIAL CHAVEZ - 11/18/2012 13:08 CDT Functional Current Daily Living Assistance : None MARCIAL CHAVEZ - 11/18/2012 13:08 CDT Dependent Habits Tobacco Use/Currently Using : No Smoking Status : Never smoker MARCIAL CHAVEZ - 11/18/2012 13:08 CDT Caffeine Use Grid Caffeine Use : Current Type : Soft drinks Frequency : Occasionally MARCIAL CHAVEZ - 11/18/2012 13:08 CDT Recreational Drug Use Grid Drug Use : None JING CHAVEZReagan FLOYD - 11/18/2012 13:08 CDT Psychosocial Domestic Abuse Concerns : None JING CHAVEZReagan FLOYD - 11/18/2012 13:08 CDT Advance Directive Advanced Directives : No MARCIAL CHAVEZN - 11/18/2012 13:08 CDT Educ Needs Learning Style Preference Adult Grid Patient : Verbal explanation Family : Verbal explanation CHAVEZ MARCIAL FLOYD - 11/18/2012 13:08 CDT Source: [facility] [employer] Document Id: [id number] Miscellaneous - Marcial Chavez L.PPiliNPili - 11/18/2012 1:04 PM CDT Adult Offender Employment Specialist Intake/History Adult Offender Employment Specialist Intake/History Entered On: 11/18/2012 13:07 CDT Performed On: 11/18/2012 13:04 CDT by MARCIAL CHAEVZ Intake Chief Complaint : urinary issues due to weight Temperature Core : 36.4C(Converted to: 97.5DegF) (LOW) Peripheral Pulse Rate : 72/min Respiratory Rate : 16/min Systolic Blood Pressure : 138mmHg Diastolic Blood Pressure : 86mmHg NIBP Mean : 103mmHg Height : 180cm(Converted to: 5ft 11inch(es), 70.87inch(es)) Actual Weight : 163.0kg(Converted to: 359lb 6oz) Dosing Weight Clinic : 163.00kg Clinic BSA : 2.85 Body Mass Index : 50.31kg/m2 SCOTT MARCIAL FLOYD - 11/18/2012 13:04 CDT General Info Information Given By : Patient Languages : Maltese SCOTT MARCIAL FLOYD - 11/18/2012 13:04 CDT Subjective Pain Symptoms : No SCOTT MARCIAL FLOYD - 11/18/2012 13:04 CDT Dependent Habits Tobacco Use/Currently Using : No Smoking Status : Never smoker MARCIAL CHAVEZ - 11/18/2012 13:04 CDT Caffeine Use Grid Caffeine Use : Current Type : Soft drinks Frequency : Occasionally JING CHAVEZY MARIEL - 11/18/2012 13:04 CDT Recreational Drug Use Grid Drug Use : None SCOTT MARCIAL MARIEL - 11/18/2012 13:04 CDT Allergy Allergies (Active) Cipro Estimated Onset Date: Unspecified ; Created By: STEVE ANDREA CNP; Reaction Status: Active ;Category: Drug ; Substance: Cipro ; Type: Allergy ; Updated By: STEVE ANDREA CNP; Reviewed Date: 07/14/2012 14:13 FORESTRY HUNTER Influenza Virus Vaccine Estimated Onset Date: Unspecified ; Reactions: diarrhea ; Created By: STEVE ANDREA CNP; Reaction Status: Active ; Category: Drug ; Substance: Influenza Virus Vaccine ; Type: Intolerance ; Updated By: STEVE ANDREA CNP; Reviewed Date: 07/14/2012 14:13 FORESTRY HUNTER Source: [facility] [employer] Document Id: [id number] documented in this encounter Plan of Treatment Not on filedocumented as of this encounter Procedures Procedure Name Priority Date/Time Associated Comments Diagnosis DX HIP RIGHT 2-3 Routine 11/18/2012 3:21 PM Resul ts for this VIEWS CDT procedure are i n the results section. ALBUMIN, RANDOM, U Routine 11/18/2012 2:04 PM Res ults for this CDT procedure are i n the results section. URINALYSIS WITH Routine 11/18/2012 2:04 PM Result s for this MICROSCOPIC CDT procedure are i n the results section. PROSTATE-SPECIFIC AG Routine 11/18/2012 1:43 PM R esults for this (PSA) SCRN, S CDT procedure are in the results section. HEMOGLOBIN A1C, B Routine 11/18/2012 1:43 PM Resu lts for this CDT procedure are i n the results section. documented in this encounter Results DX Hip Right 2+ Views (11/18/2012 3:21 PM CDT) Anatomical Region Laterality Modality Lower Extremity, Hip Right Radiographic Imagin g Specimen (Source) Anatomical Collection Method Collection Time Re ceived Time Location / / Volume Laterality 11/18/2012 3:21 PM CDT Addenda Addendum by Provider, Keely Gonzalez 11/18/2012 3:21 PM CDT RAD^^^OW XR Hip Right 2 or more views 11/18/2012 15:21:00 Addendum by Provider, Keely Gonzalez o n 11/18/2012 3:21 PM CDT RAD^^^MA XR HIP RIGHT 2 OR MORE VIEWS 11/18/2012 15:21:00 Impressions 11/18/2012 3:48 PM CDT Negative right hip. Narrative 11/18/2012 3:48 PM CDT EXAM: XR Hip Right 2 or more views INDICATION: pain right hip COMPARISON: None. FINDINGS: Soft tissues are unremarkable. No fracture or destructive lesion is identified. Hip joint space is preserved without significant degenerative change. Procedure Note Jason Penny Jr., M.D. / Lisa Franks M.D. - 01/23/2017 EXAM: XR Hip Right 2 or more views INDICATION: pain right hip COMPARISON: None. FINDINGS: Soft tissues are unremarkable. No fracture or destructive lesion is identified. Hip joint space is preserved without significant degenerative change. IMPRESSION: Negative right hip. Aithai See R.T.(R) IMG DIAGNOSTIC IMAGING PROCE DURES (ABNORMAL) Urinalysis, Complete, Includes Microscopic (11/18/2012 2:04 PM CDT) [facility] gist Method Time Signature Protein, Ur, Dip >=300 (A) Negative POWERCHART Source Clean Void POWERCHART Urine HXUr Color Yellow POWERCHART Appearance Clear POWERCHART Glucose >=1000 (A) Negative POWERCHART HXBILIRUBIN Negative Negative POWERCHART Ketones, QL(U) Negative Negative POWERCHART Specific 1.025 (A) 1.020 POWERCHART [place], POCT, U pH, POCT, Urine 6.5 5.0 - 8.0 POWERCHART HXBLOOD Small (A) Negative POWERCHART Urobilinogen 1.0 0.2 - 1.0 POWERCHART HXNITRITE Negative Negative POWERCHART Leukocyte Negative Negative POWERCHART Esterase HXUr WBC 0-5 Negative POWERCHART Red Blood Cell 2-5 (A) Negative POWERCHART Clump, Urine HXUr Bacteria Few (A) Negative POWERCHART Specimen (Source) Anatomical Collection Method Collection Time Re ceived Time Location / / Volume Laterality Urine 11/18/2012 2:04 PM CDT Steve Andrea APRN C.N.P. LAB URINE ORDERABLES Performing Organization Address City/State/ZIP Code Phon e Number POWERCHART Microalbumin, Random, Urine (11/18/2012 2:04 PM CDT) Patholo gist Method Time Signature HXU Albumin % >300 MGDL POWERCHART Creatinine, 89 MGDL POWERCHART Random, U Albumin/Creat Not Performed 0 - 17 POWERCHART inine Ratio MGGM Specimen (Source) Anatomical Collection Method Collection Time Re ceived Time Location / / Volume Laterality Urine 11/18/2012 2:04 PM CDT Steve Andrea APRN, C.N.P. LAB URINE ORDERABLES Performing Organization Address City/State/ZIP Code Phon e Number POWERCHART (ABNORMAL) Hemoglobin A1c (11/18/2012 1:43 PM CDT) Analysis Performed At Patho logist Time Signature Hemoglobin A1c, 10.7 (H) 4.0 - 6.0 POWERCHART B Specimen (Source) Anatomical Collection Method Collection Time Re ceived Time Location / / Volume Laterality Blood 11/18/2012 1:43 PM CDT Steve Andrea APRN C.N.P. LAB BLOOD ADD-ON Performing Organization Address City/State/ZIP Code Phon e Number POWERCHART PSA (Prostate-Specific Antigen) Screen (11/18/2012 1:43 PM CDT) P athologist Signature Prostate-Specif 0.95 <=3.5 NGML POWERCHART ic Ag Comment: The testing method is an electrochemilum inescence assay manufactured by [employer] and performed on the Modular or Arslan system . Values obtained with different assay met hods or kits may be different and cannot be used inte rchangeably. Test results cannot be interpreted as ab solute evidence for the presence or absence of malignant disease. Test Performed by: [place] [address] Central Lab Technician: Benji roper III, M.D. Specimen (Source) Anatomical Collection Method Collection Time Re ceived Time Location / / Volume Laterality Blood 11/18/2012 1:43 PM CDT Steve Andrea APRN C.N.P. LAB BLOOD ADD-ON Performing Organization Address City/State/ZIP Code Phon e Number POWERCHART documented in this encounter Visit Diagnoses Not on filedocumented in this encounter
--- OUTSIDE RECORDS SUMMARY | 2022-07-29 10:56 | XMS_ITS | Encounter Summary ---
:1960 Author Organization [facility] Address [address] [place] [address] Care Team Providers Name Role Phone Unavailable Primary Care Provider Unavailable Encounter Details Date Type Department Care Team Description 07/24/2011 Hospital Encounter HX [facility] Cindy Moy, Soumya PRN, C.N.P. [address] [place], [place] [phone] (Wo rk) Social History Tobacco Use Types Packs/Day Years Used Date Smoking Tobacco: Never Assessed Sex Assigned at Date Recorded Not on file documented as of this encounter Plan of Treatment Not on filedocumented as of this encounter Visit Diagnoses Not on filedocumented in this encounter
--- OUTSIDE RECORDS SUMMARY | 2022-07-29 10:56 | XMS_ITS | Encounter Summary ---
:1960 Author Organization [facility] Address [address] [place] [address] Care Team Providers Name Role Phone Unavailable Primary Care Provider Unavailable Encounter Details Date Type Department Care Team Description 09/05/2010 Hospital Encounter HX [facility] Bhumi Andrea, HAKEEM, C.N.P. [address] [place] [phone] (Wo rk) Social History Tobacco Use Types Packs/Day Years Used Date Smoking Tobacco: Never Assessed Sex Assigned at Date Recorded Not on file documented as of this encounter Progress Notes Steve Andrea, HAKEEM, C.N.P. - 09/05/2010 12:00 AM CST [id number] CHIEF COMPLAINT/ REASON FOR VISIT 1. Diabetes type 2 2. Eczema on forehead HISTORY OF PRESENT ILLNESS 1. Ed is here for recheck on diabetes type 2. He states blood sugars have been improving. They are under 200 for the most part. His A1c is actually back already this morning and has improved from 9.2 three months ago to 8.3 today. He is going to continue working on diet and exercise so that he can reach his goal of less than 8.0. 2. Ed has problems with eczema on his forehead from time to time. He has used 2.5% hydrocortisone cream with good results. He needs refill. ALLERGIES Cipro and influenza virus PREVENTIVE: Up to date see EMR Vitals see EMR PHYSICAL EXAM Well developed obese male in no acute distress. SKIN: Scaly eczema on forehead. TMs clear. Throat clear. Neck: Supple. No lymphadenopathy or thyromegaly. HEART: Regular rate and rhythm. LUNGS: Clear to auscultation. ABDOMEN: Soft, nontender, hepatosplenomegaly. IMPRESSION/REPORT/PLAN 1. Diabetes type 2. Continue to work on diet with weight loss. Get regular exercise. Goal for A1c is less than 8.0. Will recheck in 3 months. 2. Eczema on forehead. Hydrocortisone 2.5% cream apply three times daily for up to 2 weeks when needed. SJM/clf Signed Steve Fernandez. Farzaneh, MSN, ACCOUNT EXEC[employer]IVE [employer], CDE Family Nurse Practitioner Electronically Signed By:STEVE ANDREA CNP On 09/05/2010 02:13 PM Source: [facility] MHSDOLBEYNONRADSYS Document Id: [id number] E SHOT CAMERAMAN documented in this encounter Procedure Notes Steve Andrea APRN, C.N.P. - 09/05/2010 9:47 AM CST Cancel Permanently Flu Vaccine Cancel Permanently Flu Vaccine Entered On: 09/05/2010 9:47 MOVIE SHOT CAMERAMAN Performed On: 09/05/2010 9:47 MOVIE SHOT CAMERAMAN by STEVE ANDREA CNP Cancel Permanently Flu Vaccine Cancel Permanently Flu Vaccine: Allergy/Intolerance or interaction STEVE ANDREA CNP - 09/05/2010 9:47 MOVIE SHOT CAMERAMAN Source: [facility] POWERCHART Document Id: [id number] MOVIE SHOT CAMERAMAN!3 E SHOT CAMERAMAN documented in this encounter Miscellaneous Notes Miscellaneous - Steve Andrea APRN, C.N.P. - 09/05/2010 9:55 AM CST Ambulatory Patient Summary [address] [address] Visit Information Name: LAZ LUNA Current Date: 09/05/2010 09:55:16 Primary Care Provider: STEVE ANDREA [facility] [id number] Your Medications Here is a list of your medications. It is important to take your medications as directed. Use a pillbox or chart to help remind you to take your medications. Please let your doctor or nurse know if you have problems taking your medications. Medication/Strength Dose Route Frequency Indications/Special Instructions/Comments hydrocortisone topical (hydrocortisone topical 2.5% cream) 1 jannie Topical three times a day (apply soraya thin film to the affected skin and rub in gently and completely) allopurinol (allopurinol 300 mg oral tablet) 1 tab(s) Oral once a day metoprolol (metoprolol tartrate 25 mg oral tablet) 25 mg Oral two times a day glimepiride (glimepiride 4 mg oral tablet) 8 mg Oral once a day with breakfast Exenatide (Byetta 10 mcg/dose-2.4ml Prefilled Pen) 10 mcg Subcutaneous two times a day within 60 minutes before morning and evening meals simvastatin (simvastatin 40 mg oral tablet) 40 mg Oral once a day (at bedtime) metformin (metformin 1000 mg oral tablet) 1,000 mg Oral two times a day with meals omeprazole (omeprazole 20 mg oral delayed release [...] Active 12/28/2009 Hypertension essential, NOS Active 12/28/2009 Diabetes mellitus type II Active 12/28/2009 Erectile dysfunction* Active BPH without urinary obstruction Active Urge Incontinence Active Kidney stone Active Pyelonephritis Active 04/23/2010 left Your Recommendations We want to [...] Last Done Next Due Additional Information Diabetes: A1C every 6 months 09/05/2010 03/07/2011 Average of blood sugar over a 2-3 month timeframe. Diabetes and/or Vascular: Consider aspirin or antiplatelet therapy 12/27/2009 Ongoing May reduce your risk of heart attack and stroke if on aspirin or anti- platelet therapy. Diabetes and/or Vascular: LDL every 1 year 02/15/2010 02/15/2011 Screening Colonoscopy or Flex Sig or Barium Enema or Occult Blood X3 02/25/2010 02/25/2011 Checks for signs of cancer of the colon. Lipid Panel every 5 years Age 20-75 02/15/2010 02/14/2015 Checks blood for good (HDL) and bad [...] No Appointments found Your Goals/Additional instructions: Source: [facility] POWERCHART Document Id: [id number] Electronically signed by Dayami [facility] Die Maintenance Technician [id number] at 02/09/2017 5:37 AM CDT Miscellaneous - Steve Andrea, HAKEEM, C.N.P. - 09/05/2010 9:55 AM CST Ambulatory Depart Summary [address] [address] Visit Information Name: LAZ LUNA Current Date: 09/05/2010 09:55:14 Primary Care Provider: STEVE ANDREA [facility] [id number] LAZ LUNA has been given the following list of medications: Your Medications It is important to take your medications as directed. Use a pill box or chart to help remind you to take your medications. Please let your doctor or nurse know if you have problems taking your medications. Medication/Strength Dose Route Frequency Indications/Special Instructions/Comments hydrocortisone topical (hydrocortisone topical 2.5% cream) 1 jannie Topical three times a day (apply soraya thin film to the affected skin and rub in gently and completely) allopurinol (allopurinol 300 mg oral tablet) 1 tab(s) Oral once a day metoprolol (metoprolol tartrate 25 mg oral tablet) 25 mg Oral two times a day glimepiride (glimepiride 4 mg oral tablet) 8 mg Oral once a day with breakfast Exenatide (Byetta 10 mcg/dose-2.4ml Prefilled Pen) 10 mcg Subcutaneous two times a day within 60 minutes before morning and evening meals simvastatin (simvastatin 40 mg oral tablet) 40 mg Oral once a day (at bedtime) metformin (metformin 1000 mg oral tablet) 1,000 mg Oral two times a day with meals omeprazole (omeprazole 20 mg oral delayed release [...] to the patient and/or family, guardian/caregiver. Source: [facility] IntronisCHART Document Id: [id number] Electronically signed by Dayami [facility] Die Maintenance Technician [id number] at 02/09/2017 5:37 AM CDT Miscellaneous - Conversion, Historical Provider Ser - 09/05/2010 9:38 AM MOVIE SHOT CAMERAMAN Ambulatory Vitals Height Weight Ambulatory Vitals Height Weight Entered On: 09/05/2010 9:39 MOVIE SHOT CAMERAMAN Performed On: 09/05/2010 9:38 MOVIE SHOT CAMERAMAN by HEIDI PURCELL/Ht/Wt Systolic Blood Pressure: 130mmHg Diastolic Blood Pressure: 82mmHg NIBP Mean: 98mmHg BP Location: Left upper extremity Heart Rhythm: Regular HEIDI PURCELL - 09/05/2010 9:38 MOVIE SHOT CAMERAMAN Source: [facility] IntronisCHART Document Id: [id number] MOVIE SHOT CAMERAMAN!7 Miscellaneous - Conversion, Historical Provider Ser - 09/05/2010 9:29 AM MOVIE SHOT CAMERAMAN Adult Gravel Screener Intake/History Adult Gravel Screener Intake/History Entered On: 09/05/2010 9:33 MOVIE SHOT CAMERAMAN Performed On: 09/05/2010 9:29 MOVIE SHOT CAMERAMAN by HEIDI PURCELL Intake Chief Complaint: Recheck from May. Temperature Core: 36.8C(Converted to: 98.2DegF) Peripheral Pulse Rate: 80/min Respiratory Rate: 16/min Systolic Blood Pressure: 140mmHg Diastolic Blood Pressure: 82mmHg NIBP Mean: 101mmHg BP Location: Left upper extremity Heart Rhythm: Regular Actual Weight: 152.200kg(Converted to: 335lb 9oz) Dosing Weight Clinic: 152.20kg HEIDI PURCELL 09/05/2010 9:29 MOVIE SHOT CAMERAMAN Subjective Pain Symptoms: No HEIDI PURCELL - 09/05/2010 9:29 MOVIE SHOT CAMERAMAN Dependent Habits Tobacco Use/Currently Using: No HEIDI PURCELL - 09/05/2010 9:29 MOVIE SHOT CAMERAMAN Caffeine Use Grid Caffeine Use: Current Type: Soft drinks Frequency: Occasionally HEIDI PURCELL - 09/05/2010 9:29 MOVIE SHOT CAMERAMAN Recreational Drug Use Grid Drug Use: None HEIDI PURCELL 09/05/2010 9:29 MOVIE SHOT CAMERAMAN Allergies Allergies (Active) Cipro Estimated Onset Date: Unspecified ; Created By: STEVE ANDREA CNP; Reaction Status: Active ;Category: Drug ; Substance: Cipro ; Type: Allergy ; Updated By: STEVE ANDREA CNP; Reviewed Date: 04/22/2010 10:56 CDT Source: [facility] POWERCHART Document Id: [id number] MOVIE SHOT CAMERAMAN!25 documented in this encounter Plan of Treatment Not on filedocumented as of this encounter Visit Diagnoses Not on filedocumented in this encounter
--- OUTSIDE RECORDS SUMMARY | 2022-07-29 10:56 | XMS_ITS | Encounter Summary ---
:1960 Author Organization [facility] Address [address] [place] [address] Care Team Providers Name Role Phone Unavailable Primary Care Provider Unavailable Encounter Details Date Type Department Care Team Description 03/19/2011 Hospital Encounter HX [facility] FAMILY[facility] MyrBhumi walker, BILINGUAL ADMINISTRATIVE ASSISTANT, C.N.P. [address] [place] [phone] (Wo rk) Social History Tobacco Use Types Packs/Day Years Used Date Smoking Tobacco: Never Assessed Sex Assigned at Date Recorded Not on file documented as of this encounter Nursing Notes Brit Diaz L.P.N. - 07/22/2011 3:37 PM CST Diabetic Call Call placed to Ed in regards to diabetic labs that are due. Stated he does not want us calling him.He knows what is due and when and he will come in when he is ready. I apologized to him and said I would inform Steve.He than hung up on me. Electronically Signed By: BRIT DIAZ LPN On: 07/22/2011 03:47 PM Source: [facility] POWERCHART Document Id: [id number] HT PURSER Brit Diaz L.P.N. - 07/16/2011 10:28 AM CST Diabetic Call Message left with Ed's aftab he is due for diabetic lab and for a blood pressure check with nurse. Electronically Signed By: BRIT DIAZ LPN On: 07/16/2011 10:29 AM Source: [facility] Document Id: [id number] HT PURSER Steve Moy APRN, C.NPiliPPili - 03/19/2011 4:37 PM CDT Header Setup Operator Intake (Adult) Header Setup Operator Intake (Adult) Entered On: 03/19/2011 16:39 CDT Performed On: 03/19/2011 16:37 CDT by STEVE MOY CNP Assessment Program Type: Non-Program Diabetes Referring Provider: STEVE MOY CNP Special needs: None Method Used for DSME: Individual Last Educator Visit Date: 03/19/2011 CDT Diabetes Type: Type 2 19 years and older Ethnicity: White/ Current Treatment: Byetta, Oral agents Medication Compliance: Takes meds as prescribed Medication Categories: Biguanide, Incretin Glucose Meter: Accu-Chek Jolie Monitoring Frequency: Once daily Glucose Results: Fasting STEVE MOY CNP - 03/19/2011 16:37 CDT Foot Problems No foot problems: Left, Right STEVE MOY CNP - 03/19/2011 16:37 CDT Exercise Type: None Time Spent With Patient: 15 Minutes STEVE MOY CNP - 03/19/2011 16:37 CDT Comprehensive Program Goals Diabetes Education Goals Grid Diabetes Education Goal #1 row Diabetes Education Goal #2 row Diabetes Education Goal #3 row Date Goal Set: 03/19/2011 CDT 03/19/2011 CDT 03/19/2011 CDT Goal: A1c less than 8.0 weight loss regular exercise Related Content Area: Medication Healthy eating Exercise/activity STEVE MOY CNP - 03/19/2011 16:37 CDT STEVE MOY CNP - 03/19/2011 16:37 CDT PHYLLIS MOY CNP - 03/19/2011 16:37 CDT Source: [facility] Document Id: [id number] CDT!33 documented in this encounter Miscellaneous Notes Miscellaneous - Steve Moy APRN, C.N.P. - 03/19/2011 4:46 PM CDT Ambulatory Patient Summary [address] [place] [address] Visit Information Name: NOEMÍ LUNA Current Date: 03/19/2011 16:46:01 Primary Care Provider: STEVE MOY [facility] Your Medications Here is a list of your medications. It is important to take your medications as directed. Use a pillbox or chart to help remind you to take your medications. Please let your doctor or nurse know if you have problems taking your medications. Medication/Strength Dose Route Frequency Indications/Special Instructions/Comments simvastatin (simvastatin 40 mg oral tablet) 40 mg Oral once a day (at bedtime) metformin (metformin 1000 mg oral tablet) 1,000 mg Oral two times a day with meals Exenatide (Byetta 10 mcg/dose-2.4ml Prefilled Pen) 10 mcg Subcutaneous two times a day within 60 minutes before morning and evening meals lisinopril (lisinopril 10 mg oral tablet) 10 mg Oral once a day hydrocortisone topical (hydrocortisone topical 2.5% cream) 1 [...] Active DM II (or NOS), uncontrolled Active Kidney stone Inactive Pyelonephritis Inactive 04/23/2010 left [...] Additional Information Diabetes: A1C every 6 months 03/19/2011 09/18/2011 Average of blood sugar over a 2-3 month timeframe. Diabetes and/or Vascular: Consider aspirin or antiplatelet therapy 12/27/2009 Ongoing May reduce your risk of heart attack and stroke if on aspirin or anti- platelet therapy. Diabetes: Creatinine every 1 year 05/01/2010 05/01/2011 Diabetes: Diabetes Education every 1 year 03/19/2011 03/18/2012 Diabetes: Eye Exam every 1 year 02/25/2010 02/25/2011 Diabetes: Foot Exam every 1 year 12/05/2010 12/05/2011 Diabetes: Microalbumin/Urine Protein every 1 year 12/05/2010 12/05/2011 Diabetes and/or Vascular: LDL every 1 year 09/05/2010 09/05/2011 Screening Colonoscopy or Flex Sig or Occult Blood X3 02/25/2010 02/25/2011 Checks for signs of cancer of the colon. Lipid Panel every 5 years Age 20-75 09/05/2010 09/04/2015 Checks blood for good (HDL) and bad [...] you from getting the serious disease Tetanus ([place]). Your Upcoming Appointments Date Time Location Reason Provider No Appointments found Your Goals/Additional instructions: Source: [facility] POWERCHART Document Id: [id number] Electronically signed by Conversion, [facility] [employer] [id number] at 02/08/2017 3:38 PM CDT Miscellaneous - Steve Moy, HAKEEM, C.N.P. - 03/19/2011 4:46 PM CDT Ambulatory Depart Summary [address] [address] Visit Information Name: NOEMÍ LUNA Current Date: 03/19/2011 16:46:00 Primary Care Provider: STEVE MOY [facility] NOEMÍ LUNA has been given the following list of medications: Your Medications It is important to take your medications as directed. Use a pill box or chart to help remind you to take your medications. Please let your doctor or nurse know if you have problems taking your medications. Medication/Strength Dose Route Frequency Indications/Special Instructions/Comments simvastatin (simvastatin 40 mg oral tablet) 40 mg Oral once a day (at bedtime) metformin (metformin 1000 mg oral tablet) 1,000 mg Oral two times a day with meals Exenatide (Byetta 10 mcg/dose-2.4ml Prefilled Pen) 10 mcg Subcutaneous two times a day within 60 minutes before morning and evening meals lisinopril (lisinopril 10 mg oral tablet) 10 mg Oral once a day hydrocortisone topical (hydrocortisone topical 2.5% cream) 1 [...] to the patient and/or family, guardian/caregiver. Source: [facility] [employer] Document Id: [id number] Electronically signed by Dayami [facility] [id number] at 02/08/2017 3:38 PM CDT Miscellaneous - Steve Moy APRN, C.N.P. - 03/19/2011 4:46 PM CDT Quality Measures Quality Measures Entered On: 03/19/2011 16:47 CDT Performed On: 03/19/2011 16:46 CDT by STEVE MOY CNP Diabetes Date of Last Diabetes Education: 03/19/2011 CDT STEVE MOY CNP - 03/19/2011 16:46 CDT Source: [facility] [employer] Document Id: [id number] CDT!3 Miscellaneous - Lisa Stock Provider Ser - 03/19/2011 4:28 PM CDT Adult Soybean Specialties Cook Intake/History Adult Soybean Specialties Cook Intake/History Entered On: 03/19/2011 16:29 CDT Performed On: 03/19/2011 16:28 CDT by BEBO PYLE LPN Intake Chief Complaint: DM check Temperature Core: 36.7C(Converted to: 98.1DegF) Peripheral Pulse Rate: 80/min Systolic Blood Pressure: 128mmHg Diastolic Blood Pressure: 76mmHg NIBP Mean: 93mmHg BP Location: Right upper extremity Height: 178.00cm(Converted to: 5ft 10in, 70.08in) Actual Weight: 153.000kg(Converted to: 337lb 5oz) Dosing Weight Clinic: 153.00kg Clinic BSA: 2.75 Body Mass Index: 48.29kg/m2 BEBO PYLE [facility] 03/19/2011 16:28 CDT Subjective Pain Symptoms: No BEBO PYLE [facility] 03/19/2011 16:28 CDT Dependent Habits Tobacco Use/Currently Using: No Alcohol Use: No BEBO PYLE [facility] 03/19/2011 16:28 CDT Caffeine Use Grid Caffeine Use: Current Type: Soft drinks Frequency: Occasionally BEBO PYLE [facility] 03/19/2011 16:28 CDT Recreational Drug Use Grid Drug Use: None BEBO PYLE [facility] 03/19/2011 16:28 CDT Allergy Allergies (Active) Cipro Estimated Onset Date: Unspecified ; Created By: STEVE MOY CNP; Reaction Status: Active ;Category: Drug ; Substance: Cipro ; Type: Allergy ; Updated By: STEVE MOY CNP; Reviewed Date: 12/05/2010 10:10 CDT Influenza Virus Vaccine Estimated Onset Date: Unspecified ; Reactions: diarrhea ; Created By: STEVE MOY CNP; Reaction Status: Active ; Category: Drug ; Substance: Influenza Virus Vaccine ; Type: Intolerance ; Updated By: STEVE MOY CNP; Reviewed Date: 12/05/2010 10:10 CDT Source: [facility] Document Id: [id number] CDT!27 documented in this encounter Plan of Treatment Not on filedocumented as of this encounter Visit Diagnoses Not on filedocumented in this encounter
--- OUTSIDE RECORDS SUMMARY | 2022-07-29 10:56 | XMS_ITS | Encounter Summary ---
:1960 Author Organization [facility] Address [address] [place] [address] Care Team Providers Name Role Phone Unavailable Primary Care Provider Unavailable Encounter Details Date Type Department Care Team Description 12/28/2009 Hospital Encounter HX [facility] Bhumi Andrea, HAKEEM, C.N.P. [address] [place] [phone] (Wo rk) Social History Tobacco Use Types Packs/Day Years Used Date Smoking Tobacco: Never Assessed Sex Assigned at Date Recorded Not on file documented as of this encounter Progress Notes Steve Andrea APRN, C.N.P. - 12/28/2009 12:00 AM CDT [id number] IMPRESSION/REPORT/PLAN 1. Cellulitis left leg resolving. Continue Lasix 40 mg daily. He will recheck in 1 month. 2. Diabetes type 2. He will be due for A1C in February. Diabetes education today on importance of A1C less than 7 to prevent infection and more complications with his lower extremities. 3. Hypertension currently well controlled. No changes. 4. Hyperlipidemia. Return in February for fasting lipids and ALT. CHIEF COMPLAINT/REASON FOR VISIT 1. Cellulitis left leg 2. Diabetes type 2 3. Hypertension 4. Hyperlipidemia HISTORY OF PRESENT ILLNESS 1. Ed is here for recheck on cellulitis left lower leg. He has completed antibiotics. He is still taking Lasix 80 mg daily. He is wondering if he can cut back on that. He has no peripheral edema. I am going to have him cut back to 40 mg daily and will recheck again in a month. 2. Diabetes type 2. He is due for foot examination and diabetes education today. He will return in February for fasting lipids. 3. Hypertension currently well controlled. 4. Hyperlipidemia. He will return in February for fasting lipids. CURRENT MEDICATIONS See Depart Summary from today ALLERGIES See EMR PREVENTIVE SERVICES See EMR VITAL SIGNS See EMR PHYSICAL EXAM AREA EXAM TEXT GENERAL Well developed obese male in no acute distress. SKIN Warm and dry. HEAD HEENT unremarkable. HEART Heart regular rate and rhythm. LUNGS Lungs clear to auscultation. EXTREMITIES Left lower extremity warm dry minimal erythema no peripheral edema. Normal sensation tops and bottoms of feet with monofilament. SJM/clf Signed Steve Andrea, MSN, SUPERVISORY GEOGRAPHER, CDE Family Nurse Practitioner Electronically Signed By:STEVE ANDREA CNP On 12/31/2009 01:12 PM Source: [facility] MHSDOLBEYNONRADSYS Document Id: [id number] documented in this encounter Miscellaneous Notes Miscellaneous - Steve Andrea APRN, C.N.P. - 12/28/2009 1:40 PM CDT Ambulatory Depart Summary [address] [address] Visit Information Name: LAZ LUNA Current Date: 12/28/2009 13:40:43 Primary Care Provider: LAZ LUNA has been given the following list of medications: Your Medications It is important to take your medications as directed. Use a pill box or chart to help remind you to take your medications. Please let your doctor or nurse know if you have problems taking your medications. Medication/Strength Dose Route Frequency Indications/Special Instructions/Comments hydrocortisone topical (hydrocortisone 1%) Topical once a day emollients, topical (Eucerin topical cream) 1 jannie Topical once a day potassium chloride (Klor-Con M20) 20 meq Oral once a day furosemide (furosemide 80 mg oral tablet) 40 mg Oral once a day Exenatide (Byetta 10 mcg/dose-2.4ml Prefilled Pen) 10 mcg Subcutaneous two times a day aspirin (aspirin 325 mg oral tablet) 1 tab(s) Oral once a day simvastatin (simvastatin 40 mg oral tablet) 1 tab(s) Oral once a day (at bedtime) metformin (metformin 1000 mg oral tablet) 1 tab(s) Oral two times a day with meals hydrochlorothiazide-lisinopril (hydrochlorothiazide-lisinopril 12.5 mg-20 mg oral tablet) 2 tab(s) Oral once a day glyBURIDE (glyBURIDE 5 mg oral tablet) 15 mg Oral once a day Additional Information: Yes - Current list of reconciled medications is provided and explained to the patient and/or family, guardian/caregiver. Source: [facility] POWERCHART Document Id: [id number] Miscellaneous - Conversion, Historical Provider Ser - 12/28/2009 9:21 AM CDT Adult Assignment Editor Intake/History Adult Assignment Editor Intake/History Entered On: 12/28/2009 9:23 CDT Performed On: 12/28/2009 9:21 CDT by BEBO PYLE LPN Intake Chief Complaint: recheck left leg and diabetis check Temperature Core: 36.6DegC(Converted to: 97.9DegF) Peripheral Pulse Rate: 76bpm Systolic Blood Pressure: 110mmHg Diastolic Blood Pressure: 60mmHg NIBP Mean: 77mmHg BP Location: Left upper extremity Actual Weight: 158.500kg(Converted to: 349.433lb) Dosing Weight Clinic: 158.50kg BEBO PYLE LPN - 12/28/2009 9:21 CDT Subjective Pain Symptoms: No BEBO PYLE LPN - 12/28/2009 9:21 CDT Dependent Habits Tobacco Use/Currently Using: No Alcohol Use: No BEBO PYLE LPN - 12/28/2009 9:21 CDT Caffeine Use Grid Caffeine Use: Current Type: Soft drinks Frequency: Occasionally BEBO PYLE LPN - 12/28/2009 9:21 CDT Allergies Allergies (Active) Cipro Estimated Onset Date: Unspecified ; Created By: STEVE ANDREA CNP; Reaction Status: Active ;Category: Drug ; Substance: Cipro ; Type: Allergy ; Updated By: STEVE ANDREA CNP; Reviewed Date: 12/28/2009 9:39 CDT Health History I Cardiovascular Past Medical History Grid Heart Disease: Mother High Blood Pressure: Self, Mother, Father, Grandparents High Cholesterol: Self STEVE ANDREA CNP - 12/28/2009 13:41 CDT Genitourinary Past Medical Hx Grid Other: Self STEVE ANDREA CNP - 12/28/2009 13:41 CDT Health History II Endocrine/Metabolic Past Med Hx Grid Diabetes: Self, Mother, Father, Grandparents STEVE ANDREA CNP - 12/28/2009 13:41 CDT Source: [employer] Document Id: [id number] CDT!11 documented in this encounter Plan of Treatment Not on filedocumented as of this encounter Visit Diagnoses Not on filedocumented in this encounter
--- OUTSIDE RECORDS SUMMARY | 2022-07-29 10:56 | XMS_ITS | Encounter Summary ---
:1960 Author Organization [facility] Address [address] [place] [address] Care Team Providers Name Role Phone Unavailable Primary Care Provider Unavailable Encounter Details Date Type Department Care Team Description 05/14/2010 Hospital Encounter HX [facility] Bhumi Andrea, HAKEEM, C.N.P. [address] [place] [phone] (Wo rk) Social History Tobacco Use Types Packs/Day Years Used Date Smoking Tobacco: Never Assessed Sex Assigned at Date Recorded Not on file documented as of this encounter Progress Notes Steve Andrea, HAKEEM, C.N.P. - 05/14/2010 12:00 AM CDT [id number] CHIEF COMPLAINT/REASON FOR VISIT 1. Contusion left lower leg 2. Diabetes type 2 HISTORY OF PRESENT ILLNESS 1. Ed states he [place] the steps at [place] [employer] [place] on 05-09-10. He bruised his left knee, tibia fibula, and ankle. He also abraded the skin on the left cadena. His has been putting on triple antibiotic ointment and telfa ad keeping it wrapped. He is concerned he may have a cracked bone. 2. Diabetes type 2. He is due for A1C and will check that today. CURRENT MEDICATIONS See Depart summary from today ALLERGIES Cipro PREVENTIVE SERVICES Due for flu shot refuses VITAL SIGNS See EMR PHYSICAL EXAM AREA EXAM TEXT GENERAL Well developed obese male in no acute distress. SKIN Abrasion left cadena no sign of infection. HEAD HEENT unremarkable. HEART Heart regular rate and rhythm. LUNGS Lungs clear to auscultation. JOINTS Left knee normal range of motion evidence of effusion no joint space tenderness. Left ankle normal range of motion. EXTREMITIES Contusion and abrasion over the left cadena. Normal sensation in the toes. Good pedal pulse. IMPRESSION/REPORT/PLAN 1. Contusion left lower extremity. X-rays of the left knee tib/fib and ankle are all negative for fracture. Recommend continuing with antibiotic ointment and telfa dressing until abrasion completely heals recheck immediately if any sign of infection. 2. Diabetes type 2. Will check A1C today and I will contact him with results. SJM/clf Signed Steve Fernandez. Farzaneh, MSN, LOG MANAGER, CDE Family Nurse Practitioner Electronically Signed By:STEVE ANDREA CNP On 05/14/2010 03:36 PM Source: [facility] MHSDOLBEYNONRADSYS Document Id: [id number] documented in this encounter Miscellaneous Notes Miscellaneous - Steve Andrea APRN, C.N.P. - 05/14/2010 10:43 AM CDT Ambulatory Depart Summary [address] [address] Visit Information Name: NOEMÍ LUNA Current Date: 05/14/2010 10:43:33 Primary Care Provider: STEVE ANDREA CNP [id number] NOEMÍ LUNA has been given the following list of medications: Your Medications It is important to take your medications as directed. Use a pill box or chart to help remind you to take your medications. Please let your doctor or nurse know if you have problems taking your medications. Medication/Strength Dose Route Frequency Indications/Special Instructions/Comments doxycycline (doxycycline) 100 mg Oral two times a day docusate-senna (Dok Plus) 2 tab(s) Oral once a day omeprazole (omeprazole 20 mg oral delayed release capsule) 1 cap(s) Oral once a day metoprolol (metoprolol tartrate 25 mg oral tablet) 1 tab(s) Oral two times a day allopurinol (allopurinol 300 mg oral tablet) 300 mg Oral once a day prochlorperazine (prochlorperazine 10 mg oral tablet) 1 [...] mg Oral once a day (at bedtime) Exenatide (Byetta 10 mcg/dose-2.4ml Prefilled Pen) 10 [...] to the patient and/or family, guardian/caregiver. Source: [facility] POWERCHART Document Id: [id number] Miscellaneous - Conversion, Historical Provider Ser - 05/14/2010 9:32 AM CDT Adult Test Lead Intake/History Adult Test Lead Intake/History Entered On: 05/14/2010 9:33 CDT Performed On: 05/14/2010 9:32 CDT by BEBO PYLE LPN Intake Chief Complaint: fell at [employer] on 05/09/2010 complains of left knee and ankle Temperature Core: 36.6DegC(Converted to: 97.9DegF) Peripheral Pulse Rate: 68bpm Systolic Blood Pressure: 126mmHg Diastolic Blood Pressure: 78mmHg NIBP Mean: 94mmHg BP Location: Left upper extremity Actual Weight: 153.000kg(Converted to: 337.307lb) Dosing Weight Clinic: 153.00kg BEBO PYLE LPN - 05/14/2010 9:32 CDT Subjective Pain Symptoms: No BEBO PYLE LPN - 05/14/2010 9:32 CDT Dependent Habits Tobacco Use/Currently Using: No Alcohol Use: No BEBO PYLE TESTING DIRECTOR - 05/14/2010 9:32 CDT Caffeine Use Grid Caffeine Use: Current Type: Soft drinks Frequency: Occasionally BEBO PYLE MARÍA ELENA [facility] - 05/14/2010 9:32 CDT Recreational Drug Use Grid Drug Use: None BEBO PYLE TESTING DIRECTOR - 05/14/2010 9:32 CDT Allergies Allergies (Active) Cipro Estimated Onset Date: Unspecified ; Created By: STEVE ANDREA CNP; Reaction Status: Active ;Category: Drug ; Substance: Cipro ; Type: Allergy ; Updated By: STEVE ANDREA CNP; Reviewed Date: 04/22/2010 10:56 CDT Source: [employer] Document Id: [id number]!24 documented in this encounter Plan of Treatment Not on filedocumented as of this encounter Procedures Procedure Name Priority Date/Time Associated Diagnosis Comme nts DX ANKLE LEFT 3+ Routine 05/14/2010 9:51 AM Resul ts for this VIEWS CDT procedure are i n the results section. DX TIBIA FIBULA Routine 05/14/2010 9:51 AM Result s for this LEFT 2 VIEWS CDT procedure are i n the results section. DX KNEE LEFT 1 VIEW Routine 05/14/2010 9:51 AM Re sults for this CDT procedure are i n the results section. documented in this encounter Results DX Ankle Left 3+ Views (05/14/2010 9:51 AM CDT) Anatomical Region Laterality Modality Lower Extremity, Ankle Left Radiographic Imag ing Specimen (Source) Anatomical Collection Method Collection Time Re ceived Time Location / / Volume Laterality 05/14/2010 9:51 AM CDT Addenda Addendum by ProviderLisa M.D. o n 05/14/2010 9:51 AM CDT RAD^^^OW XR Ankle Left 3 or more views 05/14/2010 09:51:00 Addendum by ProviderLisa M.D. o n 05/14/2010 9:51 AM CDT RAD^^^MA XR Ankle Left 3 or more views 05/14/2010 09:51:00 Narrative 05/14/2010 10:21 AM CDT Left ankle. ?? FINDINGS: Vascular calcifications. Other velázquez negative Procedure Note Scott Mccoy D.O. / ProviderEzra M.D. - 01/29/2017 Left ankle. FINDINGS: Vascular calcifications. Other velázquez negative Tiffanie Liz R.T.(R), R.T.(R)(M) IMG DIAGNOSTIC IMAG ING PROCEDURES DX Knee Left 1 View (05/14/2010 9:51 AM CDT) Anatomical Region Laterality Modality Lower Extremity, Knee Left Radiographic Imagi ng Specimen (Source) Anatomical Collection Method Collection Time Re ceived Time Location / / Volume Laterality 05/14/2010 9:51 AM CDT Addenda Addendum by Provider, Keely Gonzalez o n 05/14/2010 9:51 AM CDT RAD^^^OW XR Knee Left 2 or less views 05/14/2010 09:51:00 Addendum by ProviderLisa M.D. o n 05/14/2010 9:51 AM CDT RAD^^^MA XR KNEE LEFT 2 OR LESS VIEWS 05/14/2010 09:51:00 Narrative 05/14/2010 10:20 AM CDT Left knee. Two views. ?? FINDINGS: Prepatellar soft tissue swelli ng or prominence. Otherwise negative Procedure Note Scott Mccoy D.O. / ProviderEzra M.D. - 01/29/2017 Left knee. Two views. FINDINGS: Prepatellar soft tissue swelli ng or prominence. Otherwise negative Tiffanie Liz R.T.(R), R.T.(R)(M) IMG DIAGNOSTIC IMAG ING PROCEDURES DX Tibia Fibula Left 2 Views (05/14/2010 9:51 AM CDT) Anatomical Region Laterality Modality Lower Extremity, TibFib Left Radiographic Nakita ging Specimen (Source) Anatomical Collection Method Collection Time Re ceived Time Location / / Volume Laterality 05/14/2010 9:51 AM CDT Addenda Addendum by Provider, Keely Gonzalez o n 05/14/2010 9:51 AM CDT RAD^^^OW XR Tibia and Fibula Left 2 views 05/14/2010 09:51:00 Addendum by ProviderLisa M.D. o n 05/14/2010 9:51 AM CDT RAD^^^MA XR TIBIA AND FIBULA LEFT 2 VIEWS 05/14/2010 09:51:00 Narrative 05/14/2010 10:19 AM CDT Left tibia and fibula. Two views. ?? FINDINGS: No evidence for fracture. Soft tissue calcifications appear vascular in origin. Procedure Note Scott Mccoy D.O. / Provider, Ezra irizarry M.D. - 01/29/2017 Left tibia and fibula. Two views. FINDINGS: No evidence for fracture. Soft tissue calcifications appear vascular in origin. Tiffanie Miguel(R), R.TPili(R)(M) IMG DIAGNOSTIC IMAG ING PROCEDURES documented in this encounter Visit Diagnoses Not on filedocumented in this encounter
--- OUTSIDE RECORDS SUMMARY | 2022-07-29 10:56 | XMS_ITS | Encounter Summary ---
:1960 Author Organization [facility] Address [address] [place] [address] Care Team Providers Name Role Phone Unavailable Primary Care Provider Unavailable Encounter Details Date Type Department Care Team Description 05/01/2010 Hospital Encounter HX [facility] Bhumi Andrea APRN, C.N.P. [address] [place] [phone] (Wo rk) Social History Tobacco Use Types Packs/Day Years Used Date Smoking Tobacco: Never Assessed Sex Assigned at Date Recorded Not on file documented as of this encounter Miscellaneous Notes Miscellaneous - Steve Andrea APRN, C.N.P. - 05/01/2010 10:33 AM CDT Ambulatory Depart Summary [address] [id number] Visit Information Name: LAZ LUNA Current Date: 05/01/2010 10:33:21 Primary Care Provider: STEVE ANDREA [facility] [phone] LAZ LUNA has been given the following [...] to the patient and/or family, guardian/caregiver. Source: [facility] POWERCHART Document Id: [id number] Miscellaneous - Conversion, Historical Provider Ser - 05/01/2010 10:07 AM CDT Adult Corporate Law Specialist Intake/History Adult Corporate Law Specialist Intake/History Entered On: 05/01/2010 10:07 CDT Performed On: 05/01/2010 10:07 CDT by BEBO PYLE LPN Intake Chief Complaint: recheck from hospital Temperature Core: 36.8DegC(Converted to: 98.2DegF) Peripheral Pulse Rate: 72bpm Systolic Blood Pressure: 128mmHg Diastolic Blood Pressure: 80mmHg NIBP Mean: 96mmHg BP Location: Left upper extremity Actual Weight: 153.000kg(Converted to: 337.307lb) Dosing Weight Clinic: 153.00kg BEBO PYLE LPN - 05/01/2010 10:07 CDT Subjective Pain Symptoms: No BEBO PYLE MARÍA ELENA ZURITA - 05/01/2010 10:07 CDT Dependent Habits Tobacco Use/Currently Using: No Alcohol Use: No BEBO PYLE MARÍA ELENA DOCTOR OF OPTOMETRY - 05/01/2010 10:07 CDT Caffeine Use Grid Caffeine Use: Current Type: Soft drinks Frequency: Occasionally BEBO PYLE MARÍA ELENA DOCTOR OF OPTOMETRY - 05/01/2010 10:07 CDT Recreational Drug Use Grid Drug Use: None BEBO PYLE MARÍA ELENA DOCTOR OF OPTOMETRY - 05/01/2010 10:07 CDT Allergies Allergies (Active) Cipro Estimated Onset Date: Unspecified ; Created By: STEVE ANDREA CNP; Reaction Status: Active ;Category: Drug ; Substance: Cipro ; Type: Allergy ; Updated By: STEVE ANDREA CNP; Reviewed Date: 04/22/2010 10:56 CDT [facility] Document Id: [id number] CDT!24 documented in this encounter Plan of Treatment Not on filedocumented as of this encounter Visit Diagnoses Not on filedocumented in this encounter
--- OUTSIDE RECORDS SUMMARY | 2022-07-29 10:56 | XMS_ITS | Encounter Summary ---
:1960 Author Organization [facility] Address [address] [place] [address] Care Team Providers Name Role Phone Unavailable Primary Care Provider Unavailable Encounter Details Date Type Department Care Team Description 03/03/2012 Hospital Encounter HX [facility] FAMILYPR[facility] Bhumi Andrea, HAKEEM, C.N.P. [address] [place] [phone] (Wo rk) Social History Tobacco Use Types Packs/Day Years Used Date Smoking Tobacco: Never Assessed Sex Assigned at Date Recorded Not on file documented as of this encounter Last Filed Vital Signs Vital Sign Reading Time Taken Comments Blood Pressure 132/88 03/03/2012 1:07 PM CDT Pulse 64 03/03/2012 1:07 PM CDT Temperature - - Respiratory Rate 18 03/03/2012 1:07 PM CDT Oxygen Saturation - - Inhaled Oxygen Concentration - - Weight 158 kg (349 lb 3.3 oz) 03/03/2012 1:07 PM CDT Height - - Body Mass Index 48.89 02/19/2012 9:32 AM CDT documented in this encounter Progress Notes Steve Andrea APRN, C.N.P. - 03/03/2012 12:00 AM CDT [id number] CHIEF COMPLAINT/REASON FOR VISIT Mattery eyes, sinus congestion and cough HISTORY OF PRESENT ILLNESS Ed states he has had mattery eyes with sinus congestion, postnasal drip and cough for the past 1 1/2 weeks. He thinks he has had fever. He states he has no appetite. He is very tired. CURRENT MEDICATIONS See depart summary from today. ALLERGIES See EMR SYSTEMS REVIEW Positive for that mentioned in history present illness and noted in the past medical history in the EMR. All other systems reviewed and were negative. PREVENTIVE Up-to-date. VITAL SIGNS See EMR PHYSICAL EXAMINATION GENERAL: Well developed obese male in no acute distress. SKIN: Warm and dry. EYES: PERRLA. EOMs intact. Fundi sharp discs. Conjunctiva erythematous with mattery discharge on lower lids and lashes bilaterally. ENT: TMs are clear. Nares congested with yellow mucus tenderness over the maxillary and frontal sinus. Throat erythematous. Mild anterior cervical lymphadenopathy. HEART: Regular rate and rhythm LUNGS: Clear to auscultation. No wheezes or rales. ABDOMEN: Soft, nontender, no hepatosplenomegaly. IMPRESSION/REPORT/PLAN Acute sinusitis with bronchitis and bilateral conjunctivitis. Augmentin 875 mg 1 twice daily for 14 days. Encourage fluids, Tylenol for fever and discomfort. Recheck if symptoms do not improve. SJM/sks Signed Steve Fernandez. Farzaneh, MSN, ORACLE FUSION MIDDLEWARE DEVELOPER, CDE Family Nurse Practitioner Electronically Signed By: STEVE ANDREA ORACLE FUSION MIDDLEWARE DEVELOPER On: 03/08/2012 07:50 AM Source: [facility] MHSDOLBEYNONRADSYS Document Id: [id number] documented in this encounter Miscellaneous Notes Miscellaneous - Allyn Graham, LPiliPPiliN. - 03/11/2012 9:04 AM CDT Colorectal Cancer Screening Due From: ALLYN GRAHAM LPN To: MARCIAL CHAVEZ; Sent: 03/11/2012 09:04:16 CDT Show up: 02/24/2013 09:03:00 CDT Subject: Colorectal Cancer Screening Due Due Date/Time: 03/03/2013 09:04:00 CDT Please Remember to: Patient is due for colorectal cancer screening. Patient last completed hemoccultslides on 03/03/2012. This type of screening is due annually. Please advise. PATIENT: ( x ) Call Patient ( ) Ask Patient to ( ) ( ) Call Relative ( ) Schedule Patient ( ) ( ) Call for Marketing Intern ( ) Follow up on Results ( ) Other: PROVIDER: ( ) Call Physician ( ) Call Pharmacist ( ) Call Lab ( ) Other: Special Instructions: Comments: Source: [facility] POWERCHART Document Id: [id number] Electronically signed by Dayami, [facility] Material Clerk [id number] at 02/07/2017 7:31 PM CDT Miscellaneous - Steve Andrea APRN, C.N.P. - 03/03/2012 1:34 PM CDT Ambulatory Depart Summary [address] [address] Visit Information Name: CARLYLE, ED Visit Date: 03/03/2012 13:34:09 Attending Provider: STEVE ANDREA CNP Primary Care Provider: STEVE ANDREA CNP CARLYLE, ED has been given the following list of medications: Your Medications It is important to take your medications as directed. Use a pill box or chart to help remind you to take your medications. Please let your doctor or nurse know if you have problems taking your medications. Medication/Strength Dose Route Frequency Indications/Special Instructions/Comments amoxicillin-clavulanate (Augmentin 875 mg oral tablet) 1 tab(s) Oral two times a day for 14 Days metoprolol (metoprolol tartrate 50 mg oral tablet) 50 mg Oral two times a day Exenatide (Byetta 10 mcg/dose-2.4ml Prefilled [...] capsule) 20 mg Oral once a day glimepiride (glimepiride 4 mg oral tablet) 8 mg Oral once a day with breakfast hydrocortisone topical (hydrocortisone topical 2.5% cream) 1 ajnnie Topical three times a day (apply soraya [...] your provider for clarification. Additional Information: Source: [facility] POWERCHART Document Id: [id number] Miscellaneous - Steve Andrea APRN, C.N.P. - 03/03/2012 1:34 PM CDT Ambulatory Patient Summary [address] [address] Visit Information Name: CARLYLE NOEMÍ Current Date: 03/03/2012 13:34:10 Physicians Attending Provider: STEVE ANDREA CNP Primary Care Provider: STEVE ANDREA CNP Your Medications Here is a list of your medications. It is important to take your medications as directed. Use a pillbox or chart to help remind you to take your medications. Please let your doctor or nurse know if you have problems taking your medications. Medication/Strength Dose Route Frequency Indications/Special Instructions/Comments amoxicillin-clavulanate (Augmentin 875 mg oral tablet) 1 tab(s) Oral two times a day for 14 Days metoprolol (metoprolol tartrate 50 mg oral tablet) 50 mg Oral two times a day Exenatide (Byetta 10 mcg/dose-2.4ml Prefilled [...] capsule) 20 mg Oral once a day glimepiride (glimepiride [...] Upcoming Appointments Date Time Location Reason Provider 05/20/2012 09:00 [facility] 05/20/2012 09:30 [facility] Diabetes recheck Steve Andrea CNP Your Goals/Additional instructions: Source: [facility] POWERCHART Document Id: [id number] Miscellaneous - Marcial Chavez L.P.N. - 03/03/2012 1:07 PM CDT Adult Youth Worker Intake/History Adult Youth Worker Intake/History Entered On: 03/03/2012 13:09 CDT Performed On: 03/03/2012 13:07 CDT by MARCIAL CHAVEZ Intake Chief Complaint : cough and sore throat Temperature Core : 36.4C(Converted to: 97.5DegF) (LOW) Peripheral Pulse Rate : 64/min Respiratory Rate : 18/min Systolic Blood Pressure : 132mmHg Diastolic Blood Pressure : 88mmHg NIBP Mean : 103mmHg Actual Weight : 158.4kg(Converted to: 349lb 3oz) Dosing Weight Clinic : 158.40kg MARCIAL CHAVEZ - 03/03/2012 13:07 CDT Subjective Pain Symptoms : No MARCIAL CHAVEZ - 03/03/2012 13:07 CDT Dependent Habits Tobacco Use/Currently Using : No Smoking Status : Never smoker MARCIAL CHAVEZ - 03/03/2012 13:07 CDT Caffeine Use Grid Caffeine Use : Current Type : Soft drinks Frequency : Occasionally MARCIAL CHAVEZ - 03/03/2012 13:07 CDT Recreational Drug Use Grid Drug Use : None MARCIAL CHAVEZ - 03/03/2012 13:07 CDT Allergy Allergies (Active) Cipro Estimated Onset Date: Unspecified ; Created By: STEVE ANDREA CNP; Reaction Status: Active ;Category: Drug ; Substance: Cipro ; Type: Allergy ; Updated By: STEVE ANDREA CNP; Reviewed Date: 02/19/2012 9:51 CDT Influenza Virus Vaccine Estimated Onset Date: Unspecified ; Reactions: diarrhea ; Created By: STEVE ANDREA CNP; Reaction Status: Active ; Category: Drug ; Substance: Influenza Virus Vaccine ; Type: Intolerance ; Updated By: STEVE ANDREA CNP; Reviewed Date: 02/19/2012 9:51 CDT Source: [facility] POWERCHART Document Id: [id number] documented in this encounter Plan of Treatment Not on filedocumented as of this encounter Visit Diagnoses Not on filedocumented in this encounter
--- OUTSIDE RECORDS SUMMARY | 2022-07-29 10:56 | XMS_ITS | Encounter Summary ---
:1960 Author Organization [facility] Address [address] [place] [address] Care Team Providers Name Role Phone Unavailable Primary Care Provider Unavailable Encounter Details Date Type Department Care Team Description 05/01/2010 Hospital Encounter HX [facility] Steve Andrea, Soumya HERRERA, C.N.P. [address] [place], [place] [phone] (Wo rk) Social History Tobacco Use Types Packs/Day Years Used Date Smoking Tobacco: Never Assessed Sex Assigned at Date Recorded Not on file documented as of this encounter Progress Notes Steve Andrea, ANESTHESIA ATTENDING, C.N.P. - 05/01/2010 12:00 AM CDT [id number] IMPRESSION/REPORT/PLAN Pyelonephritis resolving and diabetes type 2. Complete the doxycycline prescription. Creatinine is pending when results are back if creatinine is back down to normal I will call him to restart Metformin and will recheck in 1 month. CHIEF COMPLAINT/REASON FOR VISIT Recheck post hospitalization HISTORY OF PRESENT ILLNESS Ed is here for recheck. He was admitted to [facility] with pyelonephritis. He had kidney stone treated with laser a few weeks ago. Creatinine was elevated in the hospital Metformin was held lisinopril was discontinued and he is now on metoprolol. We are going to recheck BMP today and if creatinine is back to normal will restart the Metformin. He states he is feeling much better appetite is returning he plans to go back to work. CURRENT MEDICATIONS See Depart ALLERGIES Cipro PREVENTIVE SERVICES Up to date see EMR VITAL SIGNS See EMR PHYSICAL EXAM AREA EXAM TEXT GENERAL Well developed obese male in no acute distress. SKIN Warm and dry. HEAD HEENT unremarkable. HEART Heart regular rate and rhythm S1 S2 no murmur. LUNGS Lungs clear to auscultation. ABDOMEN Abdomen soft, nontender, no distension, no focal mass, no hepatosplenomegaly. SJM/clf Signed Steve Andrea, MSN, PLASTICS REPAIRER, CDE Family Nurse Practitioner Electronically Signed By:STEVE ANDREA CNP On 05/06/2010 11:37 AM Source: [facility] MHSDOLBEYNONRADSYS Document Id: [id number] documented in this encounter Plan of Treatment Not on filedocumented as of this encounter Visit Diagnoses Not on filedocumented in this encounter
--- OUTSIDE RECORDS SUMMARY | 2022-07-29 10:56 | XMS_ITS | Encounter Summary ---
:1960 Author Organization [facility] Address [address] [place] [address] Care Team Providers Name Role Phone Unavailable Primary Care Provider Unavailable Encounter Details Date Type Department Care Team Description 04/22/2010 Hospital Encounter [facility]X [facility] Joss Albarado M.D. Social History Tobacco Use Types Packs/Day Years Used Date Smoking Tobacco: Never Assessed Sex Assigned at Date Recorded Not on file documented as of this encounter Progress Notes Jose José M.D. - 04/22/2010 12:00 AM CDT [id number] IMPRESSION/REPORT/PLAN 1. Status-post ureteroscopy for treatment of a proximal left ureteral stone. This is a uric acid stone. 2. Irritative voiding symptoms. Plan Patient will follow up with his primary urologist Dr. Conley at the [facility] for his irritative voiding symptoms. I would like him to stay on Allopurinol. He may return to our urologic clinic on an as needed basis. Patient and I spent about 20 minutes talking separate from the procedure. We reviewed the indications for starting mono allopurinol. He had a uric acid based stone. Interesting he has had a little bit less frequency and urgency while he was given some post procedural Detrol. CHIEF COMPLAINT/REASON FOR VISIT Male cystoscopy HISTORY OF PRESENT ILLNESS INDICATION: Stent removal. This patient is one week status-post ureteroscopy for treatment of a proximal left ureteral stone postoperatively ureteral stent was left in place, a string exited the urethra. The patient cut the string off as it was causing a lot of discomfort at the meatus. FINDINGS Meatus: Normal Urethra: No stricture noted Prostate: Length approximately 2 to 2 1/2 cm long without significant lateral lobe hypertrophy. No visual obstruction. Middle lobe: Normal Bladder: Post void residual urine minimal. Ureteral orifices: Both in normal position with clear efflux on the right a stent is present on the left, using grasping forceps the stent was removed in its entirety without difficulty. Trabeculation mild. /kmk Signed Jose José M.D. Urology CC: Dr. Conley [facility]. Electronically Signed By:JOSE JOSÉ MD On 04/24/2010 03:38 PM Source: [facility] MHSDOLBEYNONRADSYS Document Id: [id number] documented in this encounter Miscellaneous Notes Miscellaneous - Panchito Mccracken, L.P.N. - 04/22/2010 10:58 AM CDT Adult Technical Sourcing Recruiter Intake/History Adult Technical Sourcing Recruiter Intake/History Entered On: 04/22/2010 10:59 CDT Performed On: 04/22/2010 10:58 CDT by PANCHITO MCCRACKEN Intake Chief Complaint: stent removal Temperature Core: 36.6DegC(Converted to: 97.9DegF) Peripheral Pulse Rate: 88bpm Systolic Blood Pressure: 120mmHg Diastolic Blood Pressure: 76mmHg NIBP Mean: 91mmHg BP Location: Left upper extremity PANCHITO MCCRACKEN - 04/22/2010 10:58 CDT Subjective Pain Symptoms: No PANCHITO MCCRACKEN - 04/22/2010 10:58 CDT Dependent Habits Tobacco Use/Currently Using: No Alcohol Use: No PANCHITO MCCRACKEN 04/22/2010 10:58 CDT Caffeine Use Grid Caffeine Use: Current Type: Soft drinks Frequency: Occasionally PANCHITO MCCRACKEN - 04/22/2010 10:58 CDT Recreational Drug Use Grid Drug Use: None PANCHITO MCCRACKEN 04/22/2010 10:58 CDT Allergies Allergies (Active) Cipro Estimated Onset Date: Unspecified ; Created By: STEVE ANDREA CNP; Reaction Status: Active ;Category: Drug ; Substance: Cipro ; Type: Allergy ; Updated By: STEVE ANDREA CNP; Reviewed Date: 04/22/2010 10:56 CDT Source: [facility] [employer] Document Id: [id number] CDT!22 documented in this encounter Plan of Treatment Not on filedocumented as of this encounter Visit Diagnoses Not on filedocumented in this encounter
--- OUTSIDE RECORDS SUMMARY | 2022-07-29 10:56 | XMS_ITS | Encounter Summary ---
:1960 Author Organization [facility] Address [address] [place] [address] Care Team Providers Name Role Phone Unavailable Primary Care Provider Unavailable Encounter Details Date Type Department Care Team Description 12/05/2010 Hospital Encounter [facility]X [facility]ILY[facility] Bhumi Andrea, HAKEEM, C.N.P. [address] [place] [phone] (Wo rk) Social History Tobacco Use Types Packs/Day Years Used Date Smoking Tobacco: Never Assessed Sex Assigned at Date Recorded Not on file documented as of this encounter Progress Notes Steve Andrea, HAKEEM, C.N.P. - 12/05/2010 12:00 AM CDT [id number] CHIEF COMPLAINT/ REASON FOR VISIT Diabetes type 2, hyperlipidemia, hypertension HISTORY OF PRESENT ILLNESS Ed is here for recheck on diabetes type 2. He is due for A1c and microalbumin today. He needs to schedule for dilated eye exam. CURRENT MEDICATIONS See depart summary from today ALLERGIES Cipro influenza causes diarrhea and is not tolerated PREVENTIVE: Up to date see EMR Vitals see EMR PHYSICAL EXAM Well developed obese male in no acute distress. SKIN: Warm and dry. HEART: Regular rate and rhythm. LUNGS: Clear to auscultation. EXTREMITIES: Warm and dry. Normal sensation tops bottoms of feet with monofilament. IMPRESSION/REPORT/PLAN Diabetes type 2. A1c today is improved to 7.8. He was congratulated and hopefully will continue to maintain good control. He will schedule for dilated eye exam and I will contact him with microalbumin results. Recheck in 3 months SJM/clf Signed Steve Andrea, MSN, CERTIFIED PEDORTHOTIST, CDE Family Nurse Practitioner Electronically Signed By: STEVE ANDREA CNP On: 12/07/2010 10:41 Source: [facility] MHSDOLBEYNONRADSYS Document Id: [id number] documented in this encounter Nursing Notes Steve Andrea APRN, C.N.P. - 12/05/2010 5:57 PM CDT Machine Feeder Raw Stock Intake (Adult) Machine Feeder Raw Stock Intake (Adult) Entered On: 12/05/2010 17:58 CDT Performed On: 12/05/2010 17:57 CDT by STEVE ANDREA CNP Assessment Program [...] Glucose Results: Fasting STEVE ANDREA CNP - 12/05/2010 17:57 CDT Foot Problems No foot problems: Left, Right STEVE ANDREA CNP - 12/05/2010 17:57 CDT Exercise Type: None Time Spent With Patient: 15 Minutes STEVE ANDREA CNP - 12/05/2010 17:57 CDT Comprehensive Program Goals Diabetes Education Goals Grid Diabetes Education Goal #1 row Diabetes Education Goal #2 row Diabetes Education Goal #3 row Date Goal Set: 12/05/2010 CDT 12/05/2010 CDT 12/05/2010 CDT Goal: A1c less than 8.0 weight loss regular exercise program Related Content Area: Reducing risks Healthy eating Exercise/activity Goal follow up date: 03/06/2011 CDT 03/06/2011 CDT 03/06/2011 CDT STEVE ANDREA CNP - 12/05/2010 17:57 CDT STEVE ANDREA CNP - 12/05/2010 17:57 CDT PHYLLIS ANDREA CNP - 12/05/2010 17:57 CDT Source: [facility] [employer]CHART Document Id: [id number] CDT!36 documented in this encounter Miscellaneous Notes Miscellaneous - Steve Andrea APRN, C.N.P. - 12/05/2010 5:55 PM CDT Ambulatory Patient Summary [address] [address] Visit Information Name: LUNA, Current Date: 12/05/2010 17:55:55 Primary Care Provider: STEVE ANDREA [facility] Your Medications Here is a list [...] Additional Information Diabetes: A1C every 6 months 12/05/2010 06/06/2011 Average of blood sugar over a 2-3 month timeframe. Diabetes and/or Vascular: Consider aspirin or antiplatelet therapy 12/27/2009 Ongoing May reduce your risk of heart attack and stroke if on aspirin or anti- platelet therapy. Diabetes: Foot Exam every 1 year 12/05/2010 12/05/2011 Diabetes and/or Vascular: LDL every 1 year 09/05/2010 09/05/2011 Screening Colonoscopy or Flex Sig or Barium [...] you from getting the serious disease Tetanus (Nay). Your Upcoming Appointments Date Time Location Reason Provider 12/30/2010 08:40 [facility] Phil diabetes Daniela MENDEZ, Tye Fields Your Goals/Additional instructions: Source: [facility] POWERCHART Document Id: [id number] Electronically signed by Conversion, [facility] Laborer Cement Gun Placing [id number] at 02/08/2017 5:27 PM CDT Miscellaneous - Steve Andrea, HAKEEM, C.N.P. - 12/05/2010 5:55 PM CDT Ambulatory Depart Summary [address] [address] Visit Information Name: NOEMÍ LNUA Current Date: 12/05/2010 17:55:54 Primary Care Provider: STEVE ANDREA [facility] NOEMÍ LUNA has been given the [...] to the patient and/or family, guardian/caregiver. Source: [facility] POWERCHART Document Id: [id number] Miscellaneous - Steve Andrea APRN, C.N.P. - 12/05/2010 10:22 AM CDT Quality Measures Quality Measures Entered On: 12/05/2010 10:23 CDT Performed On: 12/05/2010 10:22 CDT by STEVE ANDREA CNP Diabetes Date of Last Foot Exam: 12/05/2010 CDT Date of Last Diabetes Education: 12/05/2010 CDT STEVE ANDREA CNP - 12/05/2010 10:22 CDT Foot Exam Grid Left foot exam Right foot exam Dorsalis Pedis Pulse: Normal Normal Post Tibial Pulse: Normal Normal Capillary Refill: Less than 3 seconds Less than 3 seconds 10 gm Monofilament Sensation Check: Intact Intact STEVE ANDREA CNP - 12/05/2010 10:22 CDT STEVE ANDREA CNP - 12/05/2010 10:22 CDT Source: [facility] POWERCHART Document Id: [id number] CDT!15 Miscellaneous - Dayami, [facility] Provider Ser - 12/05/2010 10:07 AM CDT Ambulatory Vitals Height Weight Ambulatory Vitals Height Weight Entered On: 12/05/2010 10:08 CDT Performed On: 12/05/2010 10:07 CDT by JOSE WILLIAM Vitals/Ht/Wt Systolic Blood Pressure: 130mmHg Diastolic Blood Pressure: 80mmHg NIBP Mean: 97mmHg BP Location: Left upper extremity JOSE WILLIAM Feliz - 12/05/2010 10:07 CDT Source: [employer] Document Id: [id number] CDT!6 Miscellaneous - Conversion, Historical Provider Ser - 12/05/2010 10:05 AM CDT Adult Shoe Singer Intake/History Adult Shoe Singer Intake/History Entered On: 12/05/2010 10:07 CDT Performed On: 12/05/2010 10:05 CDT by JOSE WILLIAM Intake Chief Complaint: recheck diabetes Peripheral Pulse Rate: 78/min Respiratory Rate: 20/min Systolic Blood Pressure: 140mmHg Diastolic Blood Pressure: 80mmHg NIBP Mean: 100mmHg Actual Weight: 153.500kg(Converted to: 338lb 7oz) Dosing Weight Clinic: 153.50kg STEWART JASONVILMA Piper - 12/05/2010 10:05 CDT Subjective Pain Symptoms: No STEWART JASONVILMA Piper - 12/05/2010 10:05 CDT Dependent Habits Tobacco Use/Currently Using: No STEWARTJASONVLIMA Piper 12/05/2010 10:05 CDT Caffeine Use Grid Caffeine Use: Current Type: Soft drinks Frequency: Occasionally STEWARTJOSE Feliz 12/05/2010 10:05 CDT Recreational Drug Use Grid Drug Use: None STEWART JASONVILMA Piper 12/05/2010 10:05 CDT Allergies Allergies (Active) Cipro Estimated Onset Date: Unspecified ; Created By: STEVE ANDREA CNP; Reaction Status: Active ;Category: Drug ; Substance: Cipro ; Type: Allergy ; Updated By: STEVE ANDREA CNP; Reviewed Date: 04/22/2010 10:56 CDT Influenza Virus Vaccine Estimated Onset Date: Unspecified ; Reactions: diarrhea ; Created By: STEVE ANDREA CNP; Reaction Status: Active ; Category: Drug ; Substance: Influenza Virus Vaccine ; Type: Intolerance ; Updated By: STEVE ANDREA CNP; Reviewed Date: 09/05/2010 9:47 [facility] Source: [employer] Document Id: [id number] CDT!22 documented in this encounter Plan of Treatment Not on filedocumented as of this encounter Visit Diagnoses Not on filedocumented in this encounter
--- OUTSIDE RECORDS SUMMARY | 2022-07-29 10:56 | XMS_ITS | Encounter Summary ---
:[address] [facility] Address [address] [place] [address] Care Team Providers Name Role Phone Unavailable Primary Care Provider Unavailable Encounter Details Date Type Department Care Team Description 03/31/2011 Hospital Encounter [facility]X [facility] Vishal Suarez Jr., M.D. [address] [place] [phone] (Wo rk) Social History Tobacco Use Types Packs/Day Years Used Date Smoking Tobacco: Never Assessed Sex Assigned at Date Recorded Not on file documented as of this encounter Plan of Treatment Not on filedocumented as of this encounter Visit Diagnoses Not on filedocumented in this encounter
--- OUTSIDE RECORDS SUMMARY | 2022-07-29 10:56 | XMS_ITS | Encounter Summary ---
:1960 Author Organization [facility] Address [address] [place] [address] Care Team Providers Name Role Phone Unavailable Primary Care Provider Unavailable Encounter Details Date Type Department Care Team Description 05/24/2010 Hospital Encounter [facility]X [facility] FAMILYPRA Bhumi Andrea, HAKEEM, C.N.P. [address] [place] [phone] (Wo rk) Social History Tobacco Use Types Packs/Day Years Used Date Smoking Tobacco: Never Assessed Sex Assigned at Date Recorded Not on file documented as of this encounter Progress Notes Steve Andrea APRN, C.N.P. - 05/24/2010 12:00 AM CDT [id number] CHIEF COMPLAINT/REASON FOR VISIT Recheck contusion left leg and diabetes type 2 HISTORY OF PRESENT ILLNESS Ed is here for recheck on contusion left lower leg. It is looking much improved. There is one small area that is still open and he is keeping it covered and his is changing the dressing daily. He has history of diabetes type 2 and needs refill on medication. He also recently had a kidney stone and Dr. José put him on allopurinol. He then had an episode of pyelonephritis and emergency room told him to stop the allopurinol. I am going to have him restart that now. CURRENT MEDICATIONS See Depart summary from today ALLERGIES Cipro PREVENTIVE SERVICES Up to date he declines flu shot see EMR VITAL SIGNS See EMR PHYSICAL EXAM AREA EXAM TEXT GENERAL Well developed obese male in no acute distress. SKIN Warm and dry. HEAD HEENT unremarkable. HEART Heart regular rate and rhythm. LUNGS Lungs clear to auscultation. EXTREMITIES Left lower leg mildly edematous and erythematous 1 cm area open no drainage or sign of infection. IMPRESSION/REPORT/PLAN 1. Contusion with small open area left lower leg. Continue dressing changes and observe daily and schedule immediately with Adele Eid Mailing Jogger if any sign of infection. 2. Diabetes type 2. He is given refill on all of his medication. He declines flu shot. Recheck in 3 months fasting for laboratories. SJM/clf Signed Steve Fernandez. Farzaneh, MSN, CLAIMS CONSULTANT, CDE Family Nurse Practitioner Electronically Signed By:STEVE ANDREA CNP On 05/29/2010 03:56 PM Source: [facility] MHSDOLBEYNONRADSYS Document Id: [id number] documented in this encounter Miscellaneous Notes Miscellaneous - Steve Andrea APRN, C.N.P. - 05/24/2010 11:41 AM CDT Ambulatory Depart Summary [place] [id number] Visit Information Name: LAZ LUNA Current Date: 05/24/2010 11:41:01 Primary Care Provider: STEVE ANDREA CNP [id number] LAZ LUNA has been given the following list of medications: Your Medications It is important to take your medications as directed. Use a pill box or chart to help remind you to take your medications. Please let your doctor or nurse know if you have problems taking your medications. Medication/Strength Dose Route Frequency Indications/Special Instructions/Comments allopurinol (allopurinol 300 mg oral tablet) 1 [...] to the patient and/or family, guardian/caregiver. Source: [facility] POWERCHART Document Id: [id number] Electronically signed by Dayami, [facility] Basic Combatant Swimmer [id number] at 02/09/2017 12:48 AM CDT Miscellaneous - Conversion, Historical Provider Ser - 05/24/2010 9:46 AM CDT Adult Shank Stapler Intake/History Adult Shank Stapler Intake/History Entered On: 05/24/2010 9:48 CDT Performed On: 05/24/2010 9:46 CDT by BEBO PYLE LPN Intake Chief Complaint: recheck left leg Temperature Core: 36.3C(Converted to: 97.3DegF) (LOW) Systolic Blood Pressure: 124mmHg Diastolic Blood Pressure: 74mmHg NIBP Mean: 91mmHg BP Location: Left upper extremity Actual Weight: 154.000kg(Converted to: 339lb 8oz) Dosing Weight Clinic: 154.00kg BEBO PYLE LPN - 05/24/2010 9:46 CDT Subjective Pain Symptoms: No BEBO PYLE LPN - 05/24/2010 9:46 CDT Dependent Habits Tobacco Use/Currently Using: No Alcohol Use: No BEBO PYLE LPN - 05/24/2010 9:46 CDT Caffeine Use Grid Caffeine Use: Current Type: Soft drinks Frequency: Occasionally BEBO PYLE LPN - 05/24/2010 9:46 CDT Recreational Drug Use Grid Drug Use: None BEBO PYLE LPN - 05/24/2010 9:46 CDT Allergies Allergies (Active) Cipro Estimated Onset Date: Unspecified ; Created By: STEVE ANDREA CNP; Reaction Status: Active ;Category: Drug ; Substance: Cipro ; Type: Allergy ; Updated By: STEVE ANDREA CNP; Reviewed Date: 04/22/2010 10:56 CDT Source: [employer] Document Id: [id number] CDT!23 Mary Sanchez L.P.N. - 12/28/2009 11:45 AM CDT Quality Measures Quality Measures Entered On: 09/04/2010 11:45 DERRICK MAN Performed On: 12/28/2009 11:45 CDT by MARY DIAZ LPN Diabetes Date of Last Foot Exam: 12/28/2009 CDT MARY DIAZ LPN - 09/04/2010 11:45 DERRICK MAN Source: [employer] Document Id: [id number] DERRICK MAN!3 ICK MAN Miscellwalter - Mary Diaz L.P.N. - 11/02/2009 11:44 AM CST Quality Measures Quality Measures Entered On: 09/04/2010 11:45 DERRICK MAN Performed On: 11/02/2009 11:44 DERRICK MAN by MARY DIAZ LPN Diabetes Date of Last Eye Exam: 11/02/2009 DERRICK MAN MARY DIAZ LPN - 09/04/2010 11:44 DERRICK MAN Source: [employer] Document Id: [id number] DERRICK MAN!3 ICK MAN documented in this encounter Plan of Treatment Not on filedocumented as of this encounter Visit Diagnoses Not on filedocumented in this encounter
--- OUTSIDE RECORDS SUMMARY | 2022-07-29 10:56 | XMS_ITS | Encounter Summary ---
:1960 Author Organization [facility] Address [address] [place] [address] Care Team Providers Name Role Phone Unavailable Primary Care Provider Unavailable Encounter Details Date Type Department Care Team Description 09/05/2010 Hospital Encounter HX [facility] LAB Cindy Moy, Soumya PRN, C.N.P. [address] [place], [place] [phone] (Wo rk) Social History Tobacco Use Types Packs/Day Years Used Date Smoking Tobacco: Never Assessed Sex Assigned at Date Recorded Not on file documented as of this encounter Plan of Treatment Not on filedocumented as of this encounter Visit Diagnoses Not on filedocumented in this encounter
--- OUTSIDE RECORDS SUMMARY | 2022-07-29 10:57 | XMS_ITS | Encounter Summary ---
:1960 Author Organization [facility] Address [address] [place] [address] Care Team Providers Name Role Phone Unavailable Primary Care Provider Unavailable Encounter Details Date Type Department Care Team Description 11/15/2009 Hospital Encounter HX NO MAPPING Social History Tobacco Use Types Packs/Day Years Used Date Smoking Tobacco: Never Assessed Sex Assigned at Date Recorded Not on file documented as of this encounter Plan of Treatment Not on filedocumented as of this encounter Visit Diagnoses Not on filedocumented in this encounter
--- OUTSIDE RECORDS SUMMARY | 2022-07-29 10:57 | XMS_ITS | Encounter Summary ---
:1960 Author Organization [facility] Address [address] [place] [address] Care Team Providers Name Role Phone Unavailable Primary Care Provider Unavailable Encounter Details Date Type Department Care Team Description 11/28/2005 Hospital Encounter [facility]X [facility] Vishal Suarez Jr., M.D. [address] [place] [phone] (Wo rk) Social History Tobacco Use Types Packs/Day Years Used Date Smoking Tobacco: Never Assessed Sex Assigned at Date Recorded Not on file documented as of this encounter Plan of Treatment Not on filedocumented as of this encounter Visit Diagnoses Not on filedocumented in this encounter
--- OUTSIDE RECORDS SUMMARY | 2022-07-29 10:57 | XMS_ITS | Encounter Summary ---
:1960 Author Organization [facility] Address [address] [place] [address] Care Team Providers Name Role Phone Unavailable Primary Care Provider Unavailable Encounter Details Date Type Department Care Team Description 11/02/2009 Hospital Encounter [facility] Vishal Suarze Jr., M.D. [address] [phone] (Wo rk) Social History Tobacco Use Types Packs/Day Years Used Date Smoking Tobacco: Never Assessed Sex Assigned at Date Recorded Not on file documented as of this encounter Plan of Treatment Not on filedocumented as of this encounter Visit Diagnoses Not on filedocumented in this encounter
--- OUTSIDE RECORDS SUMMARY | 2022-07-29 10:57 | XMS_ITS | Encounter Summary ---
:[address] [facility] Address [address] [place] [address] Care Team Providers Name Role Phone Unavailable Primary Care Provider Unavailable Encounter Details Date Type Department Care Team Description 11/29/2004 Hospital Encounter [facility]X [facility] Vishal Suarez Jr., M.D. [address] [place] [phone] (Wo rk) Social History Tobacco Use Types Packs/Day Years Used Date Smoking Tobacco: Never Assessed Sex Assigned at Date Recorded Not on file documented as of this encounter Plan of Treatment Not on filedocumented as of this encounter Visit Diagnoses Not on filedocumented in this encounter
--- OUTSIDE RECORDS SUMMARY | 2022-07-29 10:57 | XMS_ITS | Encounter Summary ---
:1960 Author Organization [facility] Address [address] [place] [address] Care Team Providers Name Role Phone Unavailable Primary Care Provider Unavailable Encounter Details Date Type Department Care Team Description 07/14/2008 Hospital Encounter HX [facility] Vishal Suarez Jr., M.D. [address] [place] [phone] (Wo rk) Social History Tobacco Use Types Packs/Day Years Used Date Smoking Tobacco: Never Assessed Sex Assigned at Date Recorded Not on file documented as of this encounter Plan of Treatment Not on filedocumented as of this encounter Visit Diagnoses Not on filedocumented in this encounter
--- OUTSIDE RECORDS SUMMARY | 2022-07-29 10:57 | XMS_ITS | Encounter Summary ---
:1960 Author Organization [facility] Address [address] [place] [address] Care Team Providers Name Role Phone Unavailable Primary Care Provider Unavailable Encounter Details Date Type Department Care Team Description 11/12/2006 Hospital Encounter [facility]X [facility] Vishal Suarez Jr., M.D. [address] [place] [phone] (Wo rk) Social History Tobacco Use Types Packs/Day Years Used Date Smoking Tobacco: Never Assessed Sex Assigned at Date Recorded Not on file documented as of this encounter Plan of Treatment Not on filedocumented as of this encounter Visit Diagnoses Not on filedocumented in this encounter
--- OUTSIDE RECORDS SUMMARY | 2022-07-29 11:03 | XMS_ITS | Encounter Summary ---
:1960 Author Organization [facility] Address [address] [place] [address] Care Team Providers Name Role Phone Unavailable Primary Care Provider Unavailable Encounter Details Date Type Department Care Team Description 07/26/2013 Office Visit [facility] Chris Mehreen Av ed adjustment System in [place] HAKEEM Roberson reaction (Primary Dx) Psychiatry [address] [phone] Social History Tobacco Use Types Packs/Day Years Used Date Smoking Tobacco: Never Assessed Sex Assigned at Date Recorded Not on file documented as of this encounter Last Filed Vital Signs Vital Sign Reading Time Taken Comments Blood Pressure - - Pulse - - Temperature - - Respiratory Rate - - Oxygen Saturation - - Inhaled Oxygen Concentration - - Weight 152.7 kg (336 lb 9.6 oz) 07/27/2013 4:25 PM RFP WRITER Height - - Body Mass Index - - documented in this encounter Progress Notes Luz Lindsay - 07/28/2013 7:18 AM CST BRIEF DISCUSSION NOTE: Time spent with client approximately 45 - 50 minutes. This is a note for the 8th and final session of the [facility] Program group. The patient was active in the participation of this group today. The topic for discussion was preventing relapse and continued motivation for weight loss. The patient was given a letter stating that he completed all of the eight group sessions. Mr. Luna weighed in today at 336.6 pounds. AM:phil D: 07-27-13 Mehreen Perez, CONSTRUCTION CRAFT LABORER T: 07-28-13 WRITER documented in this encounter Plan of Treatment Not on filedocumented as of this encounter Visit Diagnoses Diagnosis Unspecified adjustment reaction - Primar y documented in this encounter
--- OUTSIDE RECORDS SUMMARY | 2022-07-29 11:03 | XMS_ITS | Encounter Summary ---
:1960 Author Organization [facility] Address [address] [place] [address] Care Team Providers Name Role Phone DuncanLadan Primary Care Provider Yulisa Bernabe PA Unavailable Encounter Details Date Type Department Care Team Description 09/21/2018 Travel Social History Tobacco Use Types Packs/Day Years Used Date Smoking Tobacco: Never Smokeless Tobacco: Never Alcohol Use Standard Drinks/Week Comments No 0 (1 standard drink = 0.6 oz pure alcoho l) Sex Assigned at Date Recorded Not on file documented as of this encounter Plan of Treatment Not on filedocumented as of this encounter Visit Diagnoses Not on filedocumented in this encounter Care Teams Chip Unloader Relationship Specialty Start Date End Date Ladan Song PCP - General 09/29/14 [facility] [address] [place] [address] [place] [address] Yulisa Bernabe PA Physician Ingot Supervisor Physician Ingot Supervisor 03/16/15 [address] [facility] [address] [place] [address] documented as of this encounter
--- OUTSIDE RECORDS SUMMARY | 2022-07-29 11:03 | XMS_ITS | Encounter Summary ---
:1960 Author Organization [facility] Address [address] [place] [address] Care Team Providers Name Role Phone Unavailable Primary Care Provider Unavailable Encounter Details Date Type Department Care Team Description 07/19/2013 Psyche [facility] [place] Unspecified adjustment System in [place] [facility] [place] reaction (Primary Dx) Psychology [address] [place] [address] [place] [address] [phone] Social History Tobacco Use Types Packs/Day Years Used Date Smoking Tobacco: Never Assessed Sex Assigned at Date Recorded Not on file documented as of this encounter Plan of Treatment Not on filedocumented as of this encounter Visit Diagnoses Diagnosis Unspecified adjustment reaction - Primar y documented in this encounter
--- OUTSIDE RECORDS SUMMARY | 2022-07-29 11:03 | XMS_ITS | Encounter Summary ---
:1960 Author Organization [facility] Address [address] [place] [address] Care Team Providers Name Role Phone Unavailable Primary Care Provider Unavailable Encounter Details Date Type Department Care Team Description 07/08/2013 Psyche [facility] in [place] , [place] No Show [place] [facility] [place] [address] [place] [address] [place] [address] [phone] (Wo rk) Social History Tobacco Use Types Packs/Day Years Used Date Smoking Tobacco: Never Assessed Sex Assigned at Date Recorded Not on file documented as of this encounter Plan of Treatment Not on filedocumented as of this encounter Visit Diagnoses Not on filedocumented in this encounter
--- OUTSIDE RECORDS SUMMARY | 2022-07-29 11:03 | XMS_ITS | Encounter Summary ---
:1960 Author Organization [facility] Address [address] [place] [address] Care Team Providers Name Role Phone Ladan Song Primary Care Provider Yulisa Bernabe PA Unavailable Reason for Visit Reason Onset Date Comments Pre Visit Planning - Done 04/04/2015 New patient co nsult for testicular pain. Encounter Details Date Type Department Care Team Description 04/04/2015 Telephone UROLOGY CLINIC AND Yulisa Bernabe, Pr e Visit Planning - [facility] Done (New patient AND UROLOGIC CANCERS [facility] Urology consult for testicular [facility] [address] [facility] pain. ) 4TH FLOOR, [address], [facility] [address] [place] [address] Social History Tobacco Use Types Packs/Day Years Used Date Smoking Tobacco: Never Alcohol Use Standard Drinks/Week Comments No 0 (1 standard drink = 0.6 oz pure alcoho l) Sex Assigned at Date Recorded Not on file documented as of this encounter Plan of Treatment Not on filedocumented as of this encounter Visit Diagnoses Not on filedocumented in this encounter Care Teams Capacitor Pack Press Operator Relationship Specialty Start Date End Date Ladan Song PCP - General 09/29/14 [facility] [address] [place] [address] [place] [id number] Yulisa Bernabe PA Physician Instructor Psychiatric Aide Physician Instructor Psychiatric Aide 03/16/[address] [place] [address] documented as of this encounter
--- OUTSIDE RECORDS SUMMARY | 2022-07-29 11:03 | XMS_ITS | Encounter Summary ---
:1960 Author Organization [facility] Address [address] [place] [address] Care Team Providers Name Role Phone Ladan Song Primary Care Provider Yulisa Bernabe Unavailable Reason for Visit Reason Onset Date Comments Call Back 07/10/2016 Encounter Details Date Type Department Care Team Description 07/10/2016 Telephone [facility] Urology and Inst Yulisa Farah PA Call Back for Prostate and Urologic [facility] Urology [facility] [address] [address] [place], [place] [phone] [place] [address] [place] [phone] Social History Tobacco Use Types Packs/Day Years Used Date Smoking Tobacco: Never Alcohol Use Standard Drinks/Week Comments No 0 (1 standard drink = 0.6 oz pure alcoho l) Sex Assigned at Date Recorded Not on file documented as of this encounter Miscellaneous Notes Telephone Encounter - Amanda Linares LPN - 07/10/2016 10:10 AM CDT Will try to come in the winter. Amanda Linares LPN Staff Nurse Telephone Encounter - Amanda Linares LPN - 07/10/2016 10:09 AM CDT ----- Message from SAMIRA Dumont sent at 07/08/2016 9:50 PM CDT ----- Contact: Amanda Segura. I last saw him in clinic in 04/2015, over 14 months ago There is also a telephone message from around that time suggesting that he was having an inadequate response to Cialis even though he was taking 3 tablets in one day. According to my message I instructed him that 60mg daily is unsafe! If he is having troubles with ED he will need to followup with someone to discuss injection therapy (perhaps Dr. Garcia or other?).. He has clearly failed orals. Frankly, given his lack of compliance with previous oral regimens I would be reluctant to prescribe anything. Jess ----- Message ----- From: Amanda Linares LPN Sent: 07/08/2016 4:21 PM To: SAMIRA Dumont Patient called and did not know who he saw but it was a female He jacked off for 3 hours and nothing happen please ask her what is wrong. No I cannot come and see her because the bank owns everything but his underwear He needs to get to the bottom of this and needs a phone call no face to face . Amanda Linares LPN Staff Nurse documented in this encounter Plan of Treatment Not on filedocumented as of this encounter Visit Diagnoses Not on filedocumented in this encounter Care Teams Cold Rolling Machine Setter Relationship Specialty Start Date End Date Ladan Song PCP - General 09/29/14 [facility] [address] [facility] [address] [place] [address] Yulisa Bernabe PA Physician Roofer Applicator Physician Roofer Applicator 03/16/[address] [place] [address] [address] [place], [place] [address] documented as of this encounter
--- OUTSIDE RECORDS SUMMARY | 2022-07-29 11:03 | XMS_ITS | Encounter Summary ---
:1960 Author Organization [facility] Address [address] [place] [address] Care Team Providers Name Role Phone Duncan Ladan Primary Care Provider Yulisa Bernabe PA Unavailable Encounter Details Date Type Department Care Team Description 09/15/2018 Travel Social History Tobacco Use Types Packs/Day Years Used Date Smoking Tobacco: Never Alcohol Use Standard Drinks/Week Comments No 0 (1 standard drink = 0.6 oz pure alcoho l) Sex Assigned at Date Recorded Not on file documented as of this encounter Plan of Treatment Not on filedocumented as of this encounter Visit Diagnoses Not on filedocumented in this encounter Care Teams Welding Machine Operator Thermit Relationship Specialty Start Date End Date Ladan Song PCP - General 09/29/14 [facility] [address] [place] [address] [place] [address] Yulisa Bernabe PA Physician Clinical Education Consultant Physician Clinical Education Consultant 03/16/15 420 [facility] [address] [place], [place] [phone] documented as of this encounter
--- OUTSIDE RECORDS SUMMARY | 2022-07-29 11:03 | XMS_ITS | Encounter Summary ---
:1960 Author Organization [facility] Address [address] [place] [address] Care Team Providers Name Role Phone Ladan Song Primary Care Provider Yulisa Bernabe PA Unavailable Encounter Details Date Type Department Care Team Description 04/10/2015 Rad[facility]ointment [facility] disorder of male [place] genital organs(608.89) Building 1st Floor, Clinic [address] [place], [place] [address] Social History Tobacco Use Types Packs/Day Years Used Date Smoking Tobacco: Never Alcohol Use Standard Drinks/Week Comments No 0 (1 standard drink = 0.6 oz pure alcoho l) Sex Assigned at Date Recorded Not on file documented as of this encounter Plan of Treatment Not on filedocumented as of this encounter Procedures Procedure Name Priority Date/Time Associated Comments Diagnosis US TESTICULAR AND Routine 04/10/2015 3:04 PM Other specified R esults for this SCROTUM CDT disorder of male procedure a re in genital the results organs(608.89) section. documented in this encounter Results US Scrotum and Testicles (04/10/2015 3:04 PM CDT) Anatomical Region Laterality Modality Abdomen/Pelvis Ultrasound Specimen (Source) Anatomical Location Collection Method / Collectio n Time Received Time / Laterality Volume Impressions 04/10/2015 8:59 PM CDT Impression: 1. ??Dilated vessel over the superior as pect of the left testicle which does not significantly change with Valsa lva maneuver, but is likely related to a varicocele. 2. ??Multiple bilateral epididymal head cysts/spermatocele. 3. ??No intratesticular mass or evidence of acute abnormality. I have personally reviewed the examinati on and initial interpretation and I agree with the findings. ELLE HUNTER MD Narrative 04/10/2015 8:59 PM CDT EXAMINATION: Ultrasound of the scrotum and testicles, 04/10/2015 2:49 PM COMPARISON: None. HISTORY: Right testicular pain for at le ast one year. TECHNIQUE: The scrotum and testicles wer e scanned in standard fashion with specialized ultrasound transducer(s ) using Doppler techniques. Findings: The testes demonstrate normal and symmet mushtaq echotexture and vascularity. No evidence of a focal lesi on. ?? The left measures 4.3 x 3.2 x 1.9 cm. In the superior aspect of the left testicle there is a dilated vessel measuring 0.39 cm which does not significantly change in size with Va lsalva maneuver, but is likely related to a varicocele. There is a 4 mm left epididymal head cyst. The right testicle measures 4.4 x 3.0 x 2.1 cm. There is a cystic structure in the right epididymal head t hat measures 0.4 x 0.5 x 0.3 cm and may represent a small cyst or spe rmatocele. There is an additional 2 mm right epididymal cyst. Procedure Note Elle Hunter MD - 04/10/2015For matting of this note might be different from the original. EXAMINATION: Ultrasound of the scrotum a nd testicles, 04/10/2015 2:49 PM COMPARISON: None. HISTORY: Right testicular pain for at le ast one year. TECHNIQUE: The scrotum and testicles wer e scanned in standard fashion with specialized ultrasound transducer(s ) using Doppler techniques. Findings: The testes demonstrate normal and symmet mushtaq echotexture and vascularity. No evidence of a focal lesi on. The left measures 4.3 x 3.2 x 1.9 cm. In the superior aspect of the left testicle there is a dilated vessel measuring 0.39 cm which does not significantly change in size with Va lsalva maneuver, but is likely related to a varicocele. There is a 4 mm left epididymal head cyst. The right testicle measures 4.4 x 3.0 x 2.1 cm. There is a cystic structure in the right epididymal head t hat measures 0.4 x 0.5 x 0.3 cm and may represent a small cyst or spe rmatocele. There is an additional 2 mm right epididymal cyst. IMPRESSION Impression: 1. Dilated vessel over the superior aspe ct of the left testicle which does not significantly change with Valsa lva maneuver, but is likely related to a varicocele. 2. Multiple bilateral epididymal head cy sts/spermatocele. 3. No intratesticular mass or evidence o f acute abnormality. I have personally reviewed the examinati on and initial interpretation and I agree with the findings. ELLE HUNTER MD Yulisa HOGAN IMG US ORDERABLES documented in this encounter Visit Diagnoses Diagnosis Other specified disorder of male genital organs(608.89) Other specified disorder of male genital organs documented in this encounter Care Teams Electric Trucker Relationship Specialty Start Date End Date Ladan Song PCP - General 09/29/14 [facility] [address] [place] [address] [place] [address] Yulisa Bernabe PA Physician Surgical Orderly Physician Surgical Orderly 03/16/[address] [place] [address] [address] [place], [place] [phone] documented as of this encounter
--- OUTSIDE RECORDS SUMMARY | 2022-07-29 11:03 | XMS_ITS | Encounter Summary ---
:1960 Author Organization [facility] Address [address] [place] [address] Care Team Providers Name Role Phone Ladan Song Primary Care Provider Reason for Visit Reason Comments Consult Bariatric Consult Encounter Details Date Type Department Care Team Description 10/12/2014 Office Visit Surgery Clinic Joy Núñez Morbid obesity (H) Tigist Mcmullen (Primary Dx) [address] 1[address] Floor, Clinic 1E [address] [place] [address] (Wo rk) [id number] [phone] Social History Tobacco Use Types Packs/Day Years Used Date Smoking Tobacco: Never Alcohol Use Standard Drinks/Week Comments No 0 (1 standard drink = 0.6 oz pure alcoho l) Sex Assigned at Date Recorded Not on file documented as of this encounter Last Filed Vital Signs Vital Sign Reading Time Taken Comments Blood Pressure 148/82 10/12/2014 11:45 AM DRYWALL TAPER Pulse 51 10/12/2014 11:45 AM DRYWALL TAPER Temperature - - Respiratory Rate - - Oxygen Saturation 96% 10/12/2014 11:45 AM DRYWALL TAPER Inhaled Oxygen Concentration - - Weight 152.5 kg (336 lb 1.6 oz) 10/12/2014 11:45 AM DRYWALL TAPER Height 182.9 cm (6') 10/12/2014 11:45 AM DRYWALL TAPER Body Mass Index 45.58 10/12/2014 11:45 AM DRYWALL TAPER documented in this encounter Patient Instructions Patient InstructionsJoy Núñez PA-C - 10/12/2014 1:55 PM DRYWALL TAPER PREOPERATIVE WEIGHT LOSS SURGERY TASKLIST Tentative surgery: sleeve Approximate Month and Year: Unknown depending on how much of his [facility] visits are transferrable Surgeon: Lien Khanna Insurance Coverage: BC Exclusions: None __x___To view Seminar. To sign Research Consent Form. __x___To register on [employer]. __x___To receive Decision Making Handout to read. Letter of support from primary care provider. Labs ordered and treated by primary care provider, results faxed to us. See Surgeon if interested in having surgery here at the [facility] Lose 5 lbs prior to surgery from today`s weight of 336 lbs. Per patient he has already lost 16 lbs at [facility]. Will confirm when receive records Exercise: Minimum of 20 mins 5 Days a Week __x___Dietician visit at initial consult Dietician visit month 2 Dietician visit month 3 Dietician visit month 4 Dietician visit month 5 Dietician visit month 6 Psychologist evaluation Cardiologist clearance with recommendations. Pre-operative history and physical from your primary care provider to be done within 30 days ofthe surgery and before the pre anesthesia clinic. After you have completed the psychological evaluation, required electrical tester battery visits and are within5 lbs of your goal weight, call the nursing scheduler to finalize the surgery date and schedule your final appointments to be 3 weeks before your surgery date. FINAL APPOINTMENTS Weigh-in visit at Clinic 1E, 3 weeks before surgery. Pre-operative Weight Loss Surgery Class, 3 weeks before surgery. Pre- anesthesia Clinic, tameka done 3 weeks before surgery. DISCLAIMER: Based on the evaluation results, the bariatric team decides whether and which bariatric surgery is the best option for you. Sometimes, even if you meet all of the pre-operative criteria, the bariatric team may still determine that in their medical judgement surgery is not recommended because of the risks to you. CONTACT INFORMATION ___If questions prior to surgery, call Nicki Bar RN at [phone]. ___Fax #: [phone] (to send preoperative documents). ___Fax #: [phone] (to send FMLA or return to work forms). ___Scheduler for Dr Emmanuel is Nicole. . . ___Scheduler for Dr Salazar is Amol. . . ___Call the Call Center at [phone] for appointment scheduling and nurse help after surgery. ALL TAPER documented in this encounter Progress Notes Joy Núñez PA-C - 10/12/2014 1:18 PM CST Department of Surgery [facility] Mail [address] [place] [address] Date: October 12, 2014 New Bariatric Surgery Consultation RE: Laz Luna MR#: [id number] : 1960 Requesting provider: Cintia Elizondo Chief Complaint/Reason for visit: evaluation for possible weight loss surgery Dear Dr Ladan Song, I had the pleasure of seeing your patient, Laz Luna, to evaluate him obesity and consider her for possible weight loss surgery due to morbid obesity. As you know, Laz Luna is 41 years old, she has a height of 6' 0, a weight of 336 lbs 1.6 oz, and a calculated Body mass index is 45.57 kg/(m^2).. He beenobese since high school and has been unable to achieve long-term success with weight loss attempts, such as [facility] program. Over the years he has had a maximum weight loss of 60 lbs. The heaviest weight attained by patient is 400 lbs. No previous weight loss surgery. He has gone through the program and per the patient he is set up to have surgery at [facility] by the end of November. He states that they want to do the ronit-en-y and he wants a second opinion as he is interested in the band or sleeve. His PCP referred him to us for evaluation. Co-morbidities of obesity include: Type II DM yes insulin, Victoza and 1 oral Sleep apnea no Hypertension yes Dyslipidemia yes Joint pain yes Back pain yes GERD yes treated prn omeprazole History reviewed. No pertinent past surgical history. PAST MEDICAL HISTORY: History reviewed. No pertinent past medical history. PAST SURGICAL HISTORY: Back surgery 1988 Kidney stones FAMILY HISTORY: History reviewed. No pertinent family history. SOCIAL HISTORY: History Substance Use Topics ??? Smoking status: Never Smoker ??? Smokeless tobacco: Not on file ??? 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 no Psychiatric hospitalizations no Support system: Good support? yes History of chronic pain, fibromyalgia or narcotic pain med use? no Review Of Systems Skin: negative Eyes: negative Ears/Nose/Throat: negative Respiratory: No shortness of breath, dyspnea on exertion, cough, or hemoptysis Cardiovascular: negative Gastrointestinal: negative Genitourinary: negative Musculoskeletal: back pain, neck pain and joint pain Neurologic: negative Psychiatric: negative Hematologic/Lymphatic/Immunologic: negative Endocrine: diabetes MEDICATIONS: see med list No Known Allergies BP 148/82 Pulse 51 Ht 1.829 m (6') Wt 152.454 kg (336 lb 1.6 oz) BMI 45.57 kg/m2 SpO2 96% Physical Exam Neurological: A & O x 3 Eyes: PERRL ENT: mucous membranes moist Skin: warm and dry Musculoskeletal: gait intact Respiratory: Respirations unlabored Abdomen: obese soft NT ND no scars or hernia. In summary, Laz Luna is morbidly obese with a BMI of Body mass index is 45.57 kg/(m^2). who is interested in laparoscopic band OR sleeve gastrectomy with Dr Emmanuel. He appears to be a possible candidatefor weight loss surgery pending completion of the following pre-requisites. He reports seeing the [facility] and being all ready for surgery. He reports they want to the ronit-en-y gastric bypass and he would like a 2nd opinion from us. I recommended the laparoscopic sleeve gastrectomy. We will get his records and review them. If he indeed does want to go forward with the pre surgery process if appropriate we will schedule him to see Dr Emmanuel for consultation. Per patient his insurance will pay for surgery through the end of November. Get records from [facility]. Approximate surgery month: November 2014 possibly if all complete and candidate for surgery. Seminar watched: yes Research consent signed: no, need to do at [facility] visit Decision making handout given to patient at NBS: yes Please check you insurance company for an exclusions Letter from PCP and preop labs Mailmaster visits monthly for 6 months. (saw RD today and may at the [facility] already) Psychological evaluation, get from [facility] Consultations: cardiology: need from [facility] See surgeon possibly after reviewing records from [facility] Required weight loss: 5 lbs prior to surgery from today's weight of 336 lbs 1.6 oz. Must be within 5lbs from your required weight at your 3 week preop weight check in order to keep your surgery date. (Per patient he has already gone from 352 to 336 today at the [facility]) If this is accurate per his [facility] records we will have him lose 5 more pounds from 336 lbs. Goal 331 lbs. 3 weeks before surgery you will go to a pre-op class, anesthesia clinic and nurse clinic visit. These will be scheduled by our schedulers. If any questions prior to surgery, call Nicki Bar RN at [phone]. Call the Call Center at [phone] for appointment scheduling and nurse help after surgery. Sincerely, Joy Núñez PA-C [phone] ALL TAPER documented in this encounter Nursing Notes Shanice Noe CMA - 10/12/2014 11:48 AM CST (?? Chief Complaint Patient presents with ??? Consult Bariatric Consult ??) (??Weight: 152.454 kg (336 lb 1.6 oz)??) (??Height: 182.9 cm (6')??) (??BMI (Calculated): 45.68??) (?) (?) (?) (?) (??Waist Circumference (cm): 146 cm??) (?) (??BP: 148/82 mmHg??) (?) (?) (?) (??Pulse: 51??) (?) (??SpO2: 96 %??) (?? Patient Active Problem List Diagnosis ??? Unspecified adjustment reaction ??) (?? No current outpatient prescriptions on file. ??) (??Diabetes Eval: ??) (??Pain Eval: No Pain (0)??) (??Wound Eval: ??) (?? History Smoking status ??? Never Smoker Smokeless tobacco ??? Not on file ??) (??Signed By: Shanice Noe; October 12, 2014; 11:48 AM??) ALL TAPER documented in this encounter Miscellaneous Notes Addendum Note - Shanice Noe CMA - 10/20/2014 12:26 PM DRYWALL TAPER Addended by: SHANICE NOE on: 10/20/2014 12:26 PM Modules accepted: Medications ALL TAPER documented in this encounter Plan of Treatment Not on filedocumented as of this encounter Visit Diagnoses Diagnosis Morbid obesity (H) - Primary Morbid obesity documented in this encounter Care Teams Guest Service Agent Relationship Specialty Start Date End Date Ladan Song PCP - [facility] [address] [place] [address] [address] [place] [address] documented as of this encounter
--- OUTSIDE RECORDS SUMMARY | 2022-07-29 11:03 | XMS_ITS | Encounter Summary ---
:1960 Author Organization [facility] Address [address] [place] [address] Care Team Providers Name Role Phone Unavailable Primary Care Provider Unavailable Encounter Details Date Type Department Care Team Description 07/05/2013 [facility] Unspecified adjustment System in [place] [facility] [place] reaction (Primary Dx) Psychology [address] [place] [address] [place] [phone] Social History Tobacco Use Types Packs/Day Years Used Date Smoking Tobacco: Never Assessed Sex Assigned at Date Recorded Not on file documented as of this encounter Plan of Treatment Not on filedocumented as of this encounter Visit Diagnoses Diagnosis Unspecified adjustment reaction - Primar y documented in this encounter
--- OUTSIDE RECORDS SUMMARY | 2022-07-29 11:03 | XMS_ITS | Clinical Summary ---
:1960 Author Organization [facility] Address [address] [place] [address] Care Team Providers Name Role Phone Ladan Song Primary Care Provider Yulisa Bernabe PA Unavailable Allergies Active Allergy Reactions Severity Noted Date Comments Ciprofloxacin Swelling 04/10/2015 Flu Virus Vaccine Other (See Comments) 11/03/2016 Di arrhea Haemophilus Influenzae GI Disturbance 11/03/2016 Priyanka rrhea Medications Medication Sig Dispensed Refills Start Date End Date Status ALLOPURINOL PO Take 300 mg by 0 Active mouth daily AMLODIPINE BESYLATE PO Take 10 mg by 0 Active mouth senna-docusate Take 2 tablets by 0 Active (SENOKOT-S;PERICOLACE) mouth daily 8.6-50 MG per tablet hydrochlorothiazide Take 25 mg by 0 Active (HYDRODIURIL) 25 MG mouth daily tablet hydrocortisone 2.5 % Apply topically 2 0 Active lotion times daily IBUPROFEN PO Take 200 mg by 0 Ac tive mouth as needed for moderate pain insulin glargine Inject 80 Units 0 Active (LANTUS) 100 UNIT/ML Subcutaneous vial daily liraglutide (VICTOZA) 18 Inject 1.8 mg 0 Active MG/3ML soln Subcutaneous daily LISINOPRIL PO Take 40 mg by 0 Ac tive mouth METFORMIN HCL PO Take 1,000 mg by 0 Active mouth 2 times daily (with meals) METOPROLOL TARTRATE PO Take 25 mg by 0 Active mouth 2 times daily OMEPRAZOLE PO Take 20 mg by 0 Ac tive mouth SIMVASTATIN PO Take 40 mg by 0 A ctive mouth TADALAFIL PO Take 20 mg by 0 Act adin mouth Cyanocobalamin 1000 Inject 1,000 mcg 0 06/01/2018 Active MCG/ML KIT Subcutaneous sildenafil (VIAGRA) 50 Take 1-2 tablets 2 tablet 3 09/21/2018 Active MG tabletIndications: by mouth PRN Erectile dysfunction, 30-60 minutes unspecified erectile prior to sexual dysfunction type activity. Maximum dose: 100 mg (2 tablets) per day. Active Problems Problem Noted Date Morbid obesity 10/28/2014 Diabetes mellitus, type 2 10/28/2014 Acute renal insufficiency 10/28/2014 Pedal edema 10/28/2014 Hypertension 10/28/2014 Left shoulder pain 10/28/2014 Hyperlipidemia 10/28/2014 Adjustment reaction 05/05/2013 Overview: Problem list name updated by randall hanley. Provider to review Social History Tobacco Use Types Packs/Day Years Used Date Smoking Tobacco: Never Smokeless Tobacco: Never Alcohol Use Standard Drinks/Week Comments No 0 (1 standard drink = 0.6 oz pure alcoho l) Sex Assigned at Date Recorded Not on file Last Filed Vital Signs Vital Sign Reading Time Taken Comments Blood Pressure 142/80 09/21/2018 10:15 AM MANAGER INVESTMENT Pulse 78 09/21/2018 10:15 AM MANAGER INVESTMENT Temperature - - Respiratory Rate - - Oxygen Saturation 96% 10/12/2014 11:45 AM MANAGER INVESTMENT Inhaled Oxygen Concentration - - Weight 80.7 kg (178 lb) 09/21/2018 10:15 AM MANAGER INVESTMENT per pat ient Height 182.9 cm (6') 09/21/2018 10:15 AM MANAGER INVESTMENT Body Mass Index 24.14 09/21/2018 10:15 AM MANAGER INVESTMENT Plan of Treatment Health Maintenance Due Date Last Done Comments A1C 1960 ADVANCE CARE PLANNING 1960 ANNUAL REVIEW OF HM ORDERS 1960 CT COLONOGRAPHY 1960 DIABETIC FOOT EXAM 1960 EYE EXAM 1960 FIT-DNA (Cologuard) 1960 FIT 1960 FLEX SIG 1960 LIPID 1960 MICROALBUMIN 1960 YEARLY PREVENTIVE VISIT 1960 COVID-19 Vaccine (#1) 1960 COLONOSCOPY 1968 COLORECTAL CANCER SCREENING 1968 HIV SCREENING 1973 HEPATITIS C SCREENING 1976 DTAP/TDAP/TD IMMUNIZATION (1 1983 - Tdap) Pneumococcal Vaccine: 12/06/2003 12/05/2002 Pediatrics (0 to 5 Years) and At-Risk Patients (6 to 64 Years) (2 - PCV) ZOSTER IMMUNIZATION (1 of 2) 2008 BMP 04/10/2016 04/10/2015 PHQ-2 (once per calendar 09/07/2021 year) INFLUENZA VACCINE (#1) 2022 07/13/2008, 08/09/2007, 08/06/2006 IPV IMMUNIZATION Aged Out No longer eligi ble based on patient's age to complete this to [facility] MENINGITIS IMMUNIZATION Aged Out No longe r eligible based on patient's age to complete this to [facility] Insurance Payer Benefit Plan / Subscriber ID Effective Dates Phone Addre ss Type Group BLUE PLUS BLUE PLUS [id number] 2018-Present [phone] [address] [id number] [address] [place] [address] Luna,Ed Personal/Family Self 1960 [id number] (Home) [address] [place] [address] Care Teams Head Strength And Conditioning Coach Relationship Specialty Start Date End Date Ladan Song PCP - General 09/29/14 [facility] [address] [place] [address] [place] [id number] Yulisa Bernabe PA Physician Certified Mortician Physician Certified Mortician 03/16/15 [address] [facility] [address] [place] [address]
--- OUTSIDE RECORDS SUMMARY | 2022-07-29 11:03 | XMS_ITS | Encounter Summary ---
:1960 Author Organization [facility] Address [address] [place] [address] Care Team Providers Name Role Phone Unavailable Primary Care Provider Unavailable Encounter Details Date Type Department Care Team Description 07/13/2013 Office Visit [facility] Mehreen Perez ed adjustment System in [place] HAKEEM Roberson reaction (Primary Dx) Psychiatry [address] [phone] Social History Tobacco Use Types Packs/Day Years Used Date Smoking Tobacco: Never Assessed Sex Assigned at Date Recorded Not on file documented as of this encounter Progress Notes Luz Lindsay - 07/18/2013 5:12 AM CST BRIEF DISCUSSION NOTE: Time spent with client approximately 45 - 50 minutes. The patient appoints to the clinic for a missed session of the [facility] Program. Session #2 was the topic of discussion for our meeting today. The session primarily focused on goal setting long termand short term. We also spoke briefly about return to work and dietary changes post surgery that will need to occur. The patient did report meeting with a dietitian over in the [facility] where more of this was being discussed. The material was presented from the book My Weight Loss Solution a [facility] Guide. The patient participated actively in discussion one-to-one. No weight was obtained today. The patient was invited to join the group next week. AM:phil D: 07-14-13 CAROL Graf T: 07-18-13 ENT SAFETY MANAGER documented in this encounter Plan of Treatment Not on filedocumented as of this encounter Visit Diagnoses Diagnosis Unspecified adjustment reaction - Primar y documented in this encounter
--- OUTSIDE RECORDS SUMMARY | 2022-07-29 11:03 | XMS_ITS | Encounter Summary ---
:1960 Author Organization [place] Address [address] [place] [address] Care Team Providers Name Role Phone SongLadan Primary Care Provider Yulisa Bernabe PA Unavailable Reason for Visit Reason Comments Consult New patient consult for ED a nd left testicular pain Encounter Details Date Type Department Care Team Description 04/10/2015 Office Visit UROLOGY CLINIC AND Yulisa Bernabe Other specified disorder of male genital organs(608.89) (Primary Dx); [facility] BPH (benign prostatic hyperplasia); PROSTATE AND UROLOGIC [facility] Erectile dysfunction due to diseases cla ssified elsewhere [facility] [address] [place], [place] [address] [address] [address], [address] [place] [address] (Work) [address] [address] [place] [address] Social History Tobacco Use Types Packs/Day Years Used Date Smoking Tobacco: Never Alcohol Use Standard Drinks/Week Comments No 0 (1 standard drink = 0.6 oz pure alcoho l) Sex Assigned at Date Recorded Not on file documented as of this encounter Last Filed Vital Signs Vital Sign Reading Time Taken Comments Blood Pressure 140/39 04/10/2015 12:22 PM CDT Pulse 39 04/10/2015 12:22 PM CDT Temperature - - Respiratory Rate - - Oxygen Saturation - - Inhaled Oxygen Concentration - - Weight 115.8 kg (255 lb 6.4 oz) 04/10/2015 12:22 PM CDT Height 182.9 cm (6') 04/10/2015 12:22 PM CDT Body Mass Index 34.64 04/10/2015 12:22 PM CDT documented in this encounter Patient Instructions Patient InstructionsYissel Jones CMA - 04/10/2015 1:34 PM CDT Blood work today. Schedule appointment for scrotal ultrasound. Return to clinic in 3 months or sooner if needed. It was a pleasure meeting with you today. Thank you for allowing me and my team the privilege of caring for you today. YOU are the reason we are here, and I truly hope we provided you with the excellent service you deserve. Please let us know if there is anything else we can do for you so that we can be sure you are leaving completely satisfied with your care experience. ALEJANDRO Deras documented in this encounter Progress Notes Yulisa Bernabe PA - 04/10/2015 12:56 PM CDT . It was my pleasure to meet Mr. Laz Luna, a 54 year old year old male seen in consultation today for chief complaint: Consult - Erectile dysfunction - Right testicular pain - History of kidney stones (with basketing) HPI: Mr. Laz Luna has h/o hypertension and improvingdiabetes (last A1C =5.0), and he has recently been taken off his DM medications. He is followed by PCP - Ladan Song at the [facility]. He has numerous urologic concerns today as listed above. His last visit with [facility] Urology was with Dr. Heart in December 2009 for issues of ED and urge incontinence. Cystoscopy was performed at that time which showed a 2-2.5cm prostate with obstructing lateral lobes and no median lobe. There was 1+ trabeculation. Cialis was recommended but patient was largely unable to afford this since his insurance doesn't cover ED medications. Plus it was ineffective at the 20mg dose. He discussed with his pharmacist whether it would be helpful to take two or three Cialis tablets rather than one, but he was advised not to try this. Today he continues to be unable to achieve erections satisfactory for penile- vaginal intercourse at least since 2003 when he his from [facility]. His sensation is relatively normal and he does get orgasms. Concerns about penile size and notes he has reduced girth and length. In the pa st, he states, he was 8 inches when fully erect. Today he also complains of severe pains in the right testicle x 1 year - they come and go and are severe - he janusz over with pain. Pain may last 30-40 seconds, nonradiating. No aggravating or alleviating factors. Doesn't recall any injuries to the area. Regarding his prostate - has never had a SANTOS because he refuses any type of anal penetration. Thinksthat someone probably checks his PSA, but he isn't sure. Urinary symptoms - no complaints. Recalls that in the past he had urgency and incontinence, but thishas resolved since he got his diabetes under control. Bowels - no constipation but does take regular stool softener. Past Medical History Diagnosis Date ??? Hypertension History reviewed. No pertinent past surgical history. FAMILY HISTORY: Denies family history of urologic cancer. Dad's oldest sister had cancer but was a smoker - unsure what type SOCIAL HISTORY: - from [facility] 2003 - no intercourse. 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 Never smoked. reports that he has never smoked. He does not have any smokeless tobacco history on file. Current Outpatient Prescriptions Medication Sig Dispense Refill ??? ALLOPURINOL PO Take 300 mg by mouth daily ??? AMLODIPINE BESYLATE PO Take 10 mg by mouth ??? senna-docusate (SENOKOT-S;PERICOLACE) 8.6-50 MG per tablet Take 2 tablets by mouth daily ??? METOPROLOL TARTRATE PO Take 25 mg by mouth 2 times daily ??? SIMVASTATIN PO Take 40 mg by mouth ??? hydrochlorothiazide (HYDRODIURIL) 25 MG tablet Take 25 mg by mouth daily ??? hydrocortisone 2.5 % lotion Apply topically 2 times daily ??? IBUPROFEN PO Take 200 mg by mouth as needed for moderate pain ??? insulin glargine (LANTUS) 100 UNIT/ML vial Inject 80 Units Subcutaneous daily ??? liraglutide (VICTOZA) 18 MG/3ML soln Inject 1.8 mg Subcutaneous daily ??? LISINOPRIL PO Take 40 mg by mouth ??? METFORMIN HCL PO Take 1,000 mg by mouth 2 times daily (with meals) ??? OMEPRAZOLE PO Take 20 mg by mouth ??? TADALAFIL PO Take 20 mg by mouth ALLERGIES: Ciprofloxacin REVIEW OF SYSTEMS: Skin: negative Eyes: negative Ears/Nose/Throat: + hayfever Respiratory: No shortness of breath, dyspnea on exertion, cough, or hemoptysis Cardiovascular: negative Gastrointestinal: negative Genitourinary: as above Musculoskeletal: negative Neurologic: negative Psychiatric: negative Hematologic/Lymphatic/Immunologic: negative Endocrine: positive for diabetes - controlled GENERAL PHYSICAL EXAM: Vitals: BP 140/39 mmHg Pulse 39 Ht 1.829 m (6') Wt 115.849 kg (255 lb 6.4 oz) BMI 34.63 kg/m2 Body mass index is 34.63 kg/(m^2). GENERAL: Well groomed, well developed, well nourished male in NAD. GI: Soft, NT, ND, no palpable masses. No CVAT bilaterally. MS: Gait normal, normal muscle tone SKIN: Warm to touch, dry. No visible rashes or lesions on examined areas. HEMATOLOGIC/LYMPHATIC/IMMUNOLOGIC: normal ant/post cervical, supraclavicular and inguinal nodes. No LE edema. NEURO: Alert and oriented x 3. PSYCH: Normal mood and affect, pleasant and agreeable during interview and exam. : Inguinal: no hernias or palpable lymph nodes Uncircumcised penis, no penile plaques or lesions. Orthotopic location of the urethral meatus. Scrotum normal. Testicles of normal firmness and consistency, no masses. Epididymes bilaterally without masses or tenderness. + right epididymus + likely small cyst. + right hydrocele. SANTOS: After discussion of risks and benefits, patient did consent to a SANTOS today Medium prostate, nontender. Normal rectal tone. + subtle nodule (?) at right base RADIOLOGY: The following tests were reviewed: None LABS: The last test results for Ms. Laz Luna were reviewed. PSA - PSA 1.55 12/26/2009 BMP - No lab results found. CBC - No lab results found. ASSESSMENT: 1) Right testicular pain 2) ED 3) Abnormal SANTOS PLAN: - Attempt to collect UA today - patient unable to void for specimen - BMP/ PSA - Scrotal US - Given the question of abnormal SANTOS will plan to have patient return to CLinic in 3 months to recheck. Will also follow the PSA to assure normal levels. - All options for ED were discussed. Patient has failed PDE-5 inhibitors. Discussed injectables - although patient feels he would be able to self- administer, the one thing that concerns him is cost. Heknows that his insurance will not cover. EDEX and Caverject can both be expensive. Compounded Bi- and tri-mixes can sometimes be less expensive depending on the pharmacy. External Vacuum device was discussed and this is a nice option because 1) sometimes insurance covers it and 2) once you have the device it can continue to be used for years. I did discuss the downsides, however. The penis can feel alittle cold. It can appear blue during use. Some patients find the device cumbersome or ineffective or unnatural. Lastly, surgical options were discussed. Mr. Luna has heard about malleable prostheses and feels this may be a good option for him. I discussed malleable vs. Inflatable. Obviously the malleable devices are easier to use and the mechanics are simple, but they do have the downside of providing a less natural appearance and feeling. Mr. Luna will continue thinking about this., - Mr. Luna greatly prefers FEMALE practitioners. I discussed that we do have a female urologist who sees men (Dr. Farias), but she doesn't specialize in ED surgeries. Ultimately if Mr. Luna feels serious about considering a prosthesis he will need to see Dr. Garcia. Jess Bernabe PA-C Department of Urologic Surgery documented in this encounter Nursing Notes Yissel Jones CMA - 04/10/2015 12:23 PM CDT Chief Complaint Patient presents with ??? Consult New patient consult for ED and left testicular pain Initial Ht 1.829 m (6') Wt 115.849 kg (255 lb 6.4 oz) BMI 34.63 kg/m2 Estimated body mass index is 34.63 kg/(m^2) as calculated from the following: Height as of this encounter: 1.829 m (6'). Weight as of this encounter: 115.849 kg (255 lb 6.4 oz). BP completed using cuff size: large ALEJANDRO Deras documented in this encounter Plan of Treatment Not on filedocumented as of this encounter Procedures Procedure Name Priority Date/Time Associated Diagnosis Comme nts PSA TUMOR MARKER Routine 04/10/2015 2:06 PM BPH (benign Resul ts for this CDT prostatic procedure are i n hyperplasia) the results section. BASIC METABOLIC Routine 04/10/2015 2:06 PM Erectile dysfunctio n Results for this PANEL CDT due to diseases procedure ar e in classified elsewhere the res ults section. documented in this encounter Results US [...] HUNTER MD Yulisa HOGAN IMG US ORDERABLES PSA tumor marker (04/10/2015 2:06 PM CDT) P athologist Signature PSA 1.48 0 - 4 ug/L [facility] Specimen Anatomical Collection Method Collection Time Receive d Time (Source) Location / / Volume Laterality Blood specimen 04/10/2015 2:06 PM 015 2:07 (specimen) CDT PM CDT Yulisa HOGAN LAB - BLOOD ORDERABLES Performing Organization Address City/[facility]/ZIP Code Phon e Number [facility] [address] (ABNORMAL) Basic metabolic panel (04/10/2015 2:06 PM CDT) [facility] gist Method Time Signature Sodium 140 133 - 144 [facility] mmol/L [facility] Potassium 3.9 3.4 - 5.3 [facility] mmol/L [facility] Chloride 107 94 - 109 [facility] mmol/L [facility] Carbon Dioxide 23 20 - 32 [facility] mmol/L [facility] Anion Gap 9 3 - 14 [facility] mmol/L [facility] Glucose 122 (H) 70 - 99 [facility] mg/dL [facility] Urea Nitrogen 16 7 - 30 [facility] mg/dL [facility] Creatinine 0.82 0.66 - [facility] 1.25 [facility] mg/dL [facility] GFR Estimate >90 >60 [facility] Non GFR Calc mL/min/1. [facility] 7m2 [facility] GFR Estimate >90 >60 [facility] If Black GFR Calc mL/min/1. [place] [facility] 7m2 [facility] Calcium 9.2 8.5 - [facility] 10.1 [facility] mg/dL [facility] Specimen Anatomical Collection Method Collection Time Receive d Time (Source) Location / / Volume Laterality Blood specimen 04/10/2015 2:06 PM 015 2:07 (specimen) CDT PM CDT Yulisa HOGAN LAB - BLOOD ORDERABLES Performing Organization Address City/State/ZIP Code Phon e Number [facility] [address] [place] [address] [facility] documented in this encounter Visit Diagnoses Diagnosis Other specified disorder of male genital organs(608.89) - Primary Other specified disorder of male genital organs BPH (benign prostatic hyperplasia) Unspecified hyperplasia of prostate with out urinary obstruction and other lower urinary tract symptoms (LUTS) Erectile dysfunction due to diseases cla ssified elsewhere Other specified disorder of male genital organs(608.89) Other specified disorder of male genital organs documented in this encounter Care Teams Foot And Ankle Surgeon Relationship Specialty Start Date End Date Song, Ladan PCP - General 09/29/14 [facility] [address] [facility] [address] [place], [place] [address] Yulisa Bernabe PA Physician Home Staging Specialist Physician Home Staging Specialist 03/16/[address] [place] [address] [address] [place], [place] [address] documented as of this encounter
--- OUTSIDE RECORDS SUMMARY | 2022-07-29 11:03 | XMS_ITS | Encounter Summary ---
:1960 Author Organization [place] Address [address] [place] [address] Care Team Providers Name Role Phone Ladan Song Primary Care Provider Reason for Visit Reason Comments Clinic Care Coordination - Follow-up Encounter Details Date Type Department Care Team Description 10/28/2014 Documentation Only Surgery Clinic [facility] Care Alan Fountain RN Coordination - n Building [address] [place] [address] Follow-up 1st Floor, Clinic [facility] [id number] [phone] [place], [place] (Work) [phone] Social History Tobacco Use Types Packs/Day Years Used Date Smoking Tobacco: Never Alcohol Use Standard Drinks/Week Comments No 0 (1 standard drink = 0.6 oz pure alcoho l) Sex Assigned at Date Recorded Not on file documented as of this encounter Plan of Treatment Not on filedocumented as of this encounter Visit Diagnoses Not on filedocumented in this encounter Care Teams Spout Liner Helper Relationship Specialty Start Date End Date Ladan Song PCP - General 09/29/14 [facility] [address] [place] [address] [address] [place], [place] [id number] documented as of this encounter
--- OUTSIDE RECORDS SUMMARY | 2022-07-29 11:03 | XMS_ITS | Encounter Summary ---
:1960 Author Organization [place] Address [address] [place] [address] Care Team Providers Name Role Phone Ladan Song Primary Care Provider Yulisa Bernabe PA Unavailable Reason for Visit Reason Comments Consult personal issues, would not explain Encounter Details Date Type Department Care Team Description 09/21/2018 Office Visit [facility] Urology and Keyla Haider le dysfunction, Inst for Prostate and PATIENCE Reaves unspecified erectile Urologic Cancers [address] [facility] [address] dysfunction type [address] [place], [place] (Primary Dx) 4th [address] [place] [address] [phone] (Work) [phone] Social History Tobacco Use Types Packs/Day Years Used Date Smoking Tobacco: Never Smokeless Tobacco: Never Alcohol Use Standard Drinks/Week Comments No 0 (1 standard drink = 0.6 oz pure alcoho l) Sex Assigned at Date Recorded Not on file documented as of this encounter Last Filed Vital Signs Vital Sign Reading Time Taken Comments Blood Pressure 142/80 09/21/2018 10:15 AM PROGRAMMING EQUIPMENT OPERATOR Pulse 78 09/21/2018 10:15 AM PROGRAMMING EQUIPMENT OPERATOR Temperature - - Respiratory Rate - - Oxygen Saturation - - Inhaled Oxygen Concentration - - Weight 80.7 kg (178 lb) 09/21/2018 10:15 AM PROGRAMMING EQUIPMENT OPERATOR per pat ient Height 182.9 cm (6') 09/21/2018 10:15 AM PROGRAMMING EQUIPMENT OPERATOR Body Mass Index 24.14 09/21/2018 10:15 AM PROGRAMMING EQUIPMENT OPERATOR documented in this encounter Progress Notes Keyla Haider PA-C - 09/21/2018 10:30 AM CST Mr. Laz Luna is a 54 year old male seen in consultation today for chief complaint: Consult (personalissues, would not explain) HPI: Mr. Laz Luna is a 54 year old male with a history of HTN and formerly, insulin-dependent DM (no longer diabetic per his report), who presents to the urology clinic for evaluation and management of erectile dysfunction. His last visit with [facility] Urology was 04/10/2015 with Jess Bernabe PA-C. At thattime, his primary complaints included erectile dysfunction and right-sided testicular pain. The following history is updated and amended from Jess's excellent note: Cialis was recommended in 2014 but patient was largely unable to afford this since his insurance doesn't cover ED medications. Plus it was ineffective at the 20mg dose. He discussed with his pharmacistwhether it would be helpful to take two or three Cialis tablets rather than one, but he was advised not to try this. He does report today that he did, in fact, try 60 mg of Cialis at one point several years ago which resulted in mild increased rigidity, but did not give him an erection firm enough for intercourse. He reports that he has been unable to achieve erections satisfactory for penile- vaginal intercourse since at least since 2003 when he his from the [facility]. For the past 3-5 years, he also reports inability to ejaculate, even with self-stimulation. States that he has no sensation down there. Reports that he occasionally gets pressure in the pelvis due to what he believes is back up from not being able to ejaculate. Also of note, he was noted to have a possibly abnormal SANTOS during last visit with Jess (? Subtle nodule at the right base). His most recent PSA from 04/10/15 was within normal limits at 1.48. Past Medical History: Diagnosis Date ??? Hypertension Past Surgical History: Procedure Laterality Date ??? ELBOW SURGERY FAMILY HISTORY: Denies family history of urologic cancer. Dad's oldest sister had cancer but was a smoker - unsure what type. SOCIAL HISTORY: - from [facility] 2003 - no intercourse. 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 Never smoked. reports that has never smoked. he has never used smokeless tobacco. Current Outpatient Medications Medication Sig Dispense Refill ??? Cyanocobalamin 1000 MCG/ML KIT Inject 1,000 mcg Subcutaneous ??? ALLOPURINOL PO Take 300 mg by mouth daily ??? AMLODIPINE BESYLATE PO Take 10 mg by mouth ??? hydrochlorothiazide (HYDRODIURIL) 25 [...] mouth 2 times daily (with meals) ??? METOPROLOL TARTRATE PO Take 25 mg by mouth 2 times daily ??? OMEPRAZOLE PO Take 20 mg by mouth ??? senna-docusate (SENOKOT-S;PERICOLACE) 8.6-50 MG per tablet Take 2 tablets by mouth daily ??? SIMVASTATIN PO Take 40 mg by mouth ??? TADALAFIL PO Take 20 mg by mouth ALLERGIES: Ciprofloxacin; Flu virus vaccine; and Haemophilus influenzae REVIEW OF SYSTEMS: Skin: negative Eyes: negative Ears/Nose/Throat: + hayfever Respiratory: No shortness of breath, dyspnea on exertion, cough, or hemoptysis Cardiovascular: negative Gastrointestinal: negative Genitourinary: as above Musculoskeletal: negative Neurologic: negative Psychiatric: negative Hematologic/Lymphatic/Immunologic: negative Endocrine: positive for diabetes - controlled GENERAL PHYSICAL EXAM: Vitals: BP 142/80 Pulse 78 Ht 1.829 m (6') Wt 80.7 kg (178 lb) BMI 24.14 kg/m?? Body mass index is 24.14 kg/m??. GENERAL: Well groomed, well developed, well nourished male in NAD. RESPIRATORY: no increased respiratory effort NEURO: Alert and oriented x 3. PSYCH: Normal mood and affect, pleasant and agreeable during interview and exam. Became irate at theend of the visit. : Not performed as visit was terminated abruptly (see below). SANTOS: Not performed as visit was terminated abruptly (see below). LABS: The last test results for Ms. Laz Luna were reviewed. PSA Date Value Ref Range Status 04/10/2015 1.48 0 - 4 ug/L Final ASSESSMENT: 1) Erectile dysfunction 2) History of abnormal SANTOS (see note from Jess Bernabe PA-C dated 04/10/15) PLAN: - We had a thorough discussion and reviewed all treatment options for ED (similar to prior discussion with Jess Bernabe PA-C in 2014). - Patient has failed PDE-5 inhibitors. Discussed injectables - although patient feels he would be able to self-administer, the one thing that concerns him is cost. He knows that his insurance will not cover. EDEX and Caverject can both be expensive. Compounded Bi- and tri-mixes can sometimes be less expensive depending on the pharmacy. External Vacuum device was discussed and this is a nice option because 1) sometimes insurance covers it and 2) once you have the device it can continue to be used foryears. We did discuss the downsides, however: the penis can feel a little cold; it can appear blue during use. Some patients find the device cumbersome or ineffective or unnatural. Lastly, surgical options were discussed. Mr. Luna has heard about malleable prostheses and feels this may be a good option for him. We discussed malleable vs. Inflatable. Obviously the malleable devices are easier to use and the mechanics are simple, but they do have the downside of providing a less natural appearance andfeeling. Mr. Luna will continue thinking about this. - Mr. Luna reiterates that he greatly prefers FEMALE practitioners due to a poor experience with a previous male doctor. I discussed that we do have a female urologist who sees men (Dr. Farias), but she doesn't specialize in ED surgeries. Ultimately if Mr. Luna feels serious about considering a prosthesis he will need to see Dr. Garcia. At the conclusion of today's visit, the patient elected to try a prescription for Viagra while he takes more time to think about other treatment options. -As I was writing this prescription, the patient started discussing concerns he had related to insurance issues with his truck in the past. -At one point, the patient mentioned something about plastering his on the front of his truckif the insurance sales agent wouldn't cooperate with him. -At this time, I attempted to redirect the patient back to our conversation about his Viagra prescription and asked him not to make these homicidal type comments as this is the first time I am meeting him and do not know him well enough to know when he is being serious or not. I informed him that any type of homicidal comment is taken seriously, even if it is meant as a joke. -The patient then became very irate, stood up out of his chair, and approached me in a semi-threatening manner as I was sitting opposite the door at the computer. He started speaking in a raised voice and was difficult to understand, but there were multiple instances of him saying the words f*cking and faggot at one point. He also stated that truckers always get a bad rep. He then stated that he was leaving and that I do not know you well enough to know if anything you told me today is true.He then said that I would never do anything like that to my . -As he was talking in a raised voice, I asked him if he would still like the Viagra prescription sent to his pharmacy. He said yes. I asked him how many pills he would like and he said 1-2. Therefore, Rx for Viagra 50 mg sent to his preferred pharmacy. Dosing instructions provided that indicate to take 1-2 tablets PO PRN 30-60 minutes prior to sexual activity; Maximum dose: 100 mg per day. Patient did not appear to be fully listening to me as I was explaining how to dose the medication, and repeatedly said It'll say it on the prescription. -I also asked if he would like to schedule an appointment to see a different provider. He said that he would talk to his . -Lastly, I asked if the patient would like our phone number and he said that he already had it. -At this point, the patient was still standing and facing me as I sat opposite the door at the computer and continued to speak to me in a raised, irate tone. Therefore, I stood up and walked out of [facility] stating that I was leaving now. The patient then proceeded to walk out of clinic into the [facility]. -Urology patient care tooling supervisor was notified and an ACT report will be filed. -NOTE: patient was very pleasant and agreeable throughout the majority of the visit. It was not until I redirected him onto the reason for his visit and asked him to refrain from making homicidal-type comments that he became very irate and semi-threatening in his interactions with me. Lastly, had planned to repeat SANTOS and PSA given possible abnormal SANTOS at last urology office visit, but we were unable to address these items due to the aforementioned and the visit being abruptly terminated after spending approximately 25 minutes with the patient in direct counseling. Keyla Haider PA-C Department of Urologic Surgery RAMMING EQUIPMENT OPERATOR documented in this encounter Nursing Notes Radha Sultana LPN - 09/21/2018 10:30 AM CST Chief Complaint Patient presents with ??? Consult personal issues, would not explain Blood pressure 142/80, pulse 78, height 1.829 m (6'), weight 80.7 kg (178 lb). Body mass index is 24.14 kg/m??. Patient Active Problem List Diagnosis ??? Adjustment reaction ??? Morbid obesity (H) ??? Diabetes mellitus, type 2 (H) ??? Acute renal insufficiency ??? Pedal edema ??? Hypertension ??? Left shoulder pain ??? Hyperlipidemia Allergies Allergen Reactions ??? Ciprofloxacin Swelling ??? Flu Virus Vaccine Other (See Comments) Diarrhea ??? Haemophilus Influenzae GI Disturbance Diarrhea Current Outpatient Medications Medication Sig Dispense Refill ??? Cyanocobalamin 1000 MCG/ML KIT Inject 1,000 mcg Subcutaneous ??? ALLOPURINOL PO Take 300 mg by mouth daily ??? AMLODIPINE BESYLATE PO Take 10 mg by mouth ??? hydrochlorothiazide (HYDRODIURIL) 25 [...] mouth 2 times daily (with meals) ??? METOPROLOL TARTRATE PO Take 25 mg by mouth 2 times daily ??? OMEPRAZOLE PO Take 20 mg by mouth ??? senna-docusate (SENOKOT-S;PERICOLACE) 8.6-50 MG per tablet Take 2 tablets by mouth daily ??? SIMVASTATIN PO Take 40 mg by mouth ??? TADALAFIL PO Take 20 mg by mouth Social History Tobacco Use ??? Smoking status: Never Smoker ??? Smokeless tobacco: Never Used Substance Use Topics ??? Alcohol use: No ??? Drug use: Not on file Radha Sultana LPN 09/21/2018 10:17 AM RAMMING EQUIPMENT OPERATOR documented in this encounter Plan of Treatment Not on filedocumented as of this encounter Visit Diagnoses Diagnosis Erectile dysfunction, unspecified erecti le dysfunction type - Primary documented in this encounter Care Teams Tooth Cutter Spur Relationship Specialty Start Date End Date Ladan Song PCP - General 09/29/14 [facility] [address] [place] [address] [place] [address] Yulisa Bernabe PA Physician Barrel Roller Operator Physician Barrel Roller Operator 03/16/[address] [place] [address] [address] [place] [address] documented as of this encounter
--- OUTSIDE RECORDS SUMMARY | 2022-07-29 11:03 | XMS_ITS | Encounter Summary ---
:1960 Author Organization [place] Address [address] [place] [address]. [place] [address] Care Team Providers Name Role Phone Ladan Song Primary Care Provider Yulisa Bernabe Unavailable Reason for Visit Reason Onset Date Comments Results 04/23/2015 Encounter Details Date Type Department Care Team Description 04/23/2015 Telephone [facility] Yulisa Holt PA Results FOR PROSTATE AND UROLOGIC [facility] [address] [place] [address] 4TH FLOOR, [address] [facility] [address] [place], [place] [phone] Social History Tobacco Use Types Packs/Day Years Used Date Smoking Tobacco: Never Alcohol Use Standard Drinks/Week Comments No 0 (1 standard drink = 0.6 oz pure alcoho l) Sex Assigned at Date Recorded Not on file documented as of this encounter Miscellaneous Notes Telephone Encounter - Yulisa Bernabe PA - 04/23/2015 1:08 PM CDT -Discussed scrotal US results which are entirely benign and do not show an etiology for patient's chronic intermittent testicular pains. -Discussed ED. Patient told me that despite being specifically told not to do this, he took three 20mg Cialis tablets in one day. He achieved some moderate rigidity but still didn't think it would be sufficient for intercourse. No adverse events. Patient again instructed that exceeding recommended Cialis doses is neither recommended nor safe. -Patient wished to discuss alternate ED options again. He is considering injection therapy but has concerns about his ability to afford this. He also continues to be interested in the malleable penile prosthesis, but again, he wonders whether his insurance will pay. I let him know that for either of these options he will need to see Dr. Garcia. Given his non-compliance with the Cialis dosing, I have significant concerns about his ability to dose alprostadil properly. And of course, cost continues to be a concern. Jess Bernabe Telephone Encounter - Yulisa Bernabe PA - 04/23/2015 1:08 PM CDT ----- Message from Kirstin Warren RN sent at 04/23/2015 10:44 AM CDT ----- Regarding: please call Jess, This patient received your letter in the mail. He would like a call back from you. He is still having right testicular pain that is radiating to his lower abdomen. Also tried 3 cialis and did not help with ED We talked a little bit about other options for ED and I offered him an appt with Dr Garcia but did not want to take it. He wants to talk to you first. His cell phone number is: [phone] Thank you!! documented in this encounter Plan of Treatment Not on filedocumented as of this encounter Visit Diagnoses Not on filedocumented in this encounter Care Teams Supervisor Spring Up Relationship Specialty Start Date End Date Ladan Song PCP - General 09/29/14 [facility] [address] [facility] [address] [place] [address] Yulisa Bernabe PA Physician Drawbridge Tender Physician Drawbridge Tender 03/16/15 [address] [facility] [address] [place], [place] [id number] documented as of this encounter
--- OUTSIDE RECORDS SUMMARY | 2022-07-29 11:03 | XMS_ITS | Encounter Summary ---
:1960 Author Organization [place] Address [address] [place] [address] Care Team Providers Name Role Phone Unavailable Primary Care Provider Unavailable Encounter Details Date Type Department Care Team Description 07/12/2013 Office Visit [facility] ed adjustment System in [place] HAKEEM Roberson reaction (Primary Dx) Psychiatry [address] [phone] Social History Tobacco Use Types Packs/Day Years Used Date Smoking Tobacco: Never Assessed Sex Assigned at Date Recorded Not on file documented as of this encounter Last Filed Vital Signs Vital Sign Reading Time Taken Comments Blood Pressure - - Pulse - - Temperature - - Respiratory Rate - - Oxygen Saturation - - Inhaled Oxygen Concentration - - Weight 154.2 kg (340 lb) 07/14/2013 2:30 PM PROPOSAL COORDINATOR Height - - Body Mass Index - - documented in this encounter Progress Notes Luz Lindsay - 07/18/2013 5:25 AM CST BRIEF DISCUSSION NOTE: Time spent with client approximately 45 - 50 minutes. This was our 6th session for the [facility] Program. The participant was present today. This session primarily focused on negative and positive self talk. Other additional topics were unrealistic expectations, inflexibility, all or nothing thinking, depression, anxiety, stress and emotional eating. Ed weighed in today at 340.7 pounds. Ed was invited to join the group next week. AM:phil D: 07-14-13 Mehreen Perez, PACKAGING SALES T: 07-18-13 OSAL COORDINATOR documented in this encounter Plan of Treatment Not on filedocumented as of this encounter Visit Diagnoses Diagnosis Unspecified adjustment reaction - Primar y documented in this encounter
--- OUTSIDE RECORDS SUMMARY | 2022-07-29 11:03 | XMS_ITS | Encounter Summary ---
:1960 Author Organization [place] Address [address] [place] [address] Care Team Providers Name Role Phone Unavailable Primary Care Provider Unavailable Encounter Details Date Type Department Care Team Description 07/22/2013 Psyche [facility] Unspecified adjustment System in [place] [facility] [place] reaction (Primary Dx) Psychology [address] [place] [address] [place] [address] [phone] Social History Tobacco Use Types Packs/Day Years Used Date Smoking Tobacco: Never Assessed Sex Assigned at Date Recorded Not on file documented as of this encounter Plan of Treatment Not on filedocumented as of this encounter Visit Diagnoses Diagnosis Unspecified adjustment reaction - Primar y documented in this encounter
--- OUTSIDE RECORDS SUMMARY | 2022-07-29 11:03 | XMS_ITS | Encounter Summary ---
:1960 Author Organization [place] Address [address] [place] [address] Care Team Providers Name Role Phone Ladan Song Primary Care Provider Encounter Details Date Type Department Care Team Description 10/12/2014 [facility] Surgery [facility] Crissy Amador Visit [address] [facility] 1st Floor, Clinic 1E [address] [facility] [address] [facility] [address] [place] [address] [phone] Social History Tobacco Use Types Packs/Day Years Used Date Smoking Tobacco: Never Alcohol Use Standard Drinks/Week Comments No 0 (1 standard drink = 0.6 oz pure alcoho l) Sex Assigned at Date Recorded Not on file documented as of this encounter Progress Notes Crissy Amador L - 10/12/2014 12:16 PM CST Nutrition Assessment Reason For Visit: Ed Jeremy is a 54 year-old with type 2 DM (on insulin) and h/o kidney stones presenting today for new bariatric nutrition consult. Pt is interested in weight loss surgery. This is pt's first of ? RD visits required. Why did you decide to have the surgery? Lose weight, health concerns Support System: yes () Anthropometrics: Height: 6 Admission Weight: 336.1 lbs BMI: 45.68 Required weight loss goal pre-op: per PA/surgeon Current Medications/Supplements: Flintstones Complete chewable BID (Per pt, PCP recommended this BID.) Note: Pt tends to eat ice frequently; question iron status. Duration of Obesity: entire life Past Diet Attempts History: eating 1 time/day, exercise, low-darnell diet secondary to pain in back Greatest amount of weight lost at one time: -60 lbs or so Nutrition History Food Allergies/Intolerances: none known/diagnosed Nauseated after eating chicken and fish. Cravings: 2% milk Triggers/cues causing extra eating: boredom/emotional eating per pt's ; watching television Recall Diet: Breakfast: Frosted Flakes, 2% milk, strawberries (4), banana or 1 day on weekend: miranda, 2 eggs, toast Lunch: skip or canned spaghetti or 1/2 sandwich (deli meat) with 1 orange and fun-sized M&M bag (2 bags), sugar-free grove licorice Dinner: skip or similar to lunch or at gas station: hamburger or wraps (Southwestern chicken or beef); salad with lots of dressing, cottage cheese and fruit Desserts: sometimes sugar-free ice cream (2 scoops), bite-size sugar-free candy, small sugar-free rootbeer float Snacks/Fruit between meals: none Beverages: water, 1 cup 2% milk 5 days/wk or 3-4 glasses 2% milk 2 days/wk, very seldom coffee, Crystal Light/Derek Dining Out History: Frequency: seldom only weekends 2 times/month Location: sit-down restaurant; fast food occasionally Types of Foods: Cymro salad; Albert's hamburger Physical Activity: Types of Activities: walking with on weekends Frequency: 1-2 days/week Duration: 60 min or so (sometimes longer) Nutrition Diagnosis Obesity r/t long history of self-monitoring deficit and excessive energy intake aeb BMI >30. Intervention Intervention Provided/Education Provided on post-op diet guidelines, vitamins/minerals essential post-operatively, GI anatomy of bariatric surgeries, ways to help prepare for post-op diet guidelines pre-operatively, portion/calorie-control, mindful eating. Provided pt with list of goals. *Suggested pt have his iron status checked. Patient Understanding: good Expected Compliance: good GOALS: - Eat slowly (20-30 minutes per meal), chewing foods well (25 chews per bite) - Eliminate calorie-containing beverages (no milk, instead have 500 mg Ca citrate+ D BID) - Focus on lean protein and non-starchy veg/whole fruit. - For dinner, follow the 9 Plate method (1/2 non-starchy vegetables/fruit, 1/4 lean protein, 1/4 whole grain starch - no more than 1 cup carb/meal) - Increase activity level as able (walking). Follow-Up: 1 month or PRN Time spent with patient: 60 minutes. Crissy Donaldson, ROBERT, LD, CLT SSIONS ASSISTANT documented in this encounter Plan of Treatment Not on filedocumented as of this encounter Visit Diagnoses Not on filedocumented in this encounter Care Teams Orthoptist Relationship Specialty Start Date End Date Ladan Song PCP - General 09/29/14 [facility] [address] [place] [address] [place] [id number] documented as of this encounter
--- OUTSIDE RECORDS SUMMARY | 2022-07-29 11:04 | XMS_ITS | Encounter Summary ---
:1960 Author Organization [place] Address [address] [place] [address] Care Team Providers Name Role Phone Unavailable Primary Care Provider Unavailable Encounter Details Date Type Department Care Team Description 02/15/2010 Office Visit-P INTERFACE P DEPT Jessee Iniguez [facility] [address] 5510 (Wo rk) Social History Tobacco Use Types Packs/Day Years Used Date Smoking Tobacco: Never Assessed Sex Assigned at Date Recorded Not on file documented as of this encounter Progress Notes Estephania Iniguez - 02/15/2010 12:16 PM CDT Lumber Straightened: Estephania Iniguez Status: Final - Signature Encounter: 15 Feb 2010 Type: Chart Note This Patient was calling for Radha on thursday and was verbaly sexually discribing her and talking about her Stating things lilke where is that fine sexy lady? And talking about her hour glass body and so on. All he wanted was some test results and dictations faxed to his primary clinic. But I was offened by the way he was speeking about my co wroker. and ended the conversation. Electronically signed by:Estephania Iniguez MA Feb 15 2010 12:22PM RN TRANSITION documented in this encounter Plan of Treatment Not on filedocumented as of this encounter Visit Diagnoses Not on filedocumented in this encounter
--- OUTSIDE RECORDS SUMMARY | 2022-07-29 11:04 | XMS_ITS | Encounter Summary ---
:1960 Author Organization [place] Address [address] [place] [address] Care Team Providers Name Role Phone Unavailable Primary Care Provider Unavailable Encounter Details Date Type Department Care Team Description 03/29/2010 Office Visit-[facility] INTERFACE [facility] DEPT Unknown, Provider Social History Tobacco Use Types Packs/Day Years Used Date Smoking Tobacco: Never Assessed Sex Assigned at Date Recorded Not on file documented as of this encounter Progress Notes Unknown, Provider - 03/29/2010 11:54 AM CDT Critical Care Educator: Mallorie Armendariz Status: Final - Signature Encounter: 29 Mar 2010 Type: Chart Note Patient phoned looking for Radha, stating he didn't appreciate being lied about, that the person who received his last call told Radha he wasn't nice. I repeatedly asked the patient his name and whenhe finally gave it to me I asked him to stop yelling at me stating , could you please stop yelling at me. Ed became very angry and verbally abusive at being called sir and requested to speak to mysupervisor. I transferred the call. Electronically signed by:Mallorie Armendariz [facility] Mar 29 2010 11:57AM OVERNIGHT CASHIER documented in this encounter Plan of Treatment Not on filedocumented as of this encounter Visit Diagnoses Not on filedocumented in this encounter
--- OUTSIDE RECORDS SUMMARY | 2022-07-29 11:04 | XMS_ITS | Encounter Summary ---
:1960 Author Organization [facility] Address [address] [place] [address] Care Team Providers Name Role Phone Unavailable Primary Care Provider Unavailable Encounter Details Date Type Department Care Team Description 12/26/2009 Office Visit-[facility] INTERFACE [facility] DEPT Provider, [facility] Nurs e Social History Tobacco Use Types Packs/Day Years Used Date Smoking Tobacco: Never Assessed Sex Assigned at Date Recorded Not on file documented as of this encounter Progress Notes Provider, [facility] Nurse - 12/26/2009 1:40 PM CDT Hopper Attendant: Radha Morales Status: Signed Encounter: 26 Dec 2009 Type: Invasive Procedure Safety Checklist Invasive Procedure Safety Checklist Date: December 27, 2009 Procedure: cysto scopy Patient Name: NOEMÍ LUNA : 1960 ACTION: Complete sections and checkboxes as appropriate. Any discrepancy results in a HARD COPY until resolved. PREPROCEDURE: Yes: Patient ID verified with 2 identifiers (name and or MRN) Yes: Procedure and site verified with patient/designee (when able) Yes: Accurate consent documentation in medical record No: H&P (or appropriate assessment) documented in medical record H&P must be up to 30 days prior to procedure an updated within 24 hours of procedure as applicable No: Relevant diagnostic and radiology test results appropriately labeled and displayed as applicable No: Blood products, implants, devices, and/or special equipment available for the procedure as applicable No: Procedure site(s) marked with provider initials Yes: Marking not required. Reason: Procedure does not require site marking. TIME OUT: Yes: Time-Out performed immediately prior to starting procedure, including verbal and active participation of all team members addressing: * Correct patient identity * Confirmed that the correct side and site are marked * An accurate procedure consent form * Agreement on the procedure to be done * Correct patient position * Relevant images and results are properly labeled and appropriately displayed * The need to administer antibiotics or fluids for irrigation purposes during the procedure as applicable * Safety precations based on patient history or medication use DURING PROCEDURE: Verification of correct person, site, and procedure occurs any time the responsibility for care of the patient is transferred to another member of the care team. Signature Signed By: Radha Morales L.P.N.; 12/27/2009 10:54 AM WATER VALVE MECHANIC; Author. Provider, [facility] Nurse - 12/26/2009 1:40 PM CDT Hopper Attendant: Radha Morales Status: Final Encounter: 26 Dec 2009 Type: Rooming Note Reason For Visit New leakage and sd Do you have any other appointments, tests or procedures within the [facility] system for this same day? No. Pain Eval Current history of pain associated with this visit is denied. Active Problems Bladder incontinence was demonstrated. Personal Hx Behavioral history: No tobacco use. Home environment: No secondhand tobacco smoke in home. Vital Signs Recorded by Radha Morales on 26 Dec 2009 01:25 PM BP:143/78, HR: 95 b/min, Weight: 347.3 lb, Pain Scale: 0. Current Meds Med list offered and patient declined. Reviewed with patient, reported none. Notes Are you diabetic? Yes Did you review the problem list? Yes Does patient need any refills today? No Pharmacy reviewed with patient? Yes. Signature Signed By: Radha Morales L.P.N.; 12/26/2009 1:30 PM WATER VALVE MECHANIC; Author. documented in this encounter Plan of Treatment Not on filedocumented as of this encounter Visit Diagnoses Not on filedocumented in this encounter
--- OUTSIDE RECORDS SUMMARY | 2022-07-29 11:04 | XMS_ITS | Encounter Summary ---
:1960 Author Organization [place] Address [address] [place] [address]. [place] [address] Care Team Providers Name Role Phone Unavailable Primary Care Provider Unavailable Encounter Details Date Type Department Care Team Description 12/26/2009 Office Visit-[facility] AND Alex Heart MD [facility] [address] [facility] [address] [place] [address] 4TH FLOOR, [address] [place] [address], (Fax ) [address] [address] Social History Tobacco Use Types Packs/Day Years Used Date Smoking Tobacco: Never Assessed Sex Assigned at Date Recorded Not on file documented as of this encounter Progress Notes Jarvis Heart - 12/26/2009 1:40 PM CDT Lead Trainer: Jarvis Heart Status: Final - Signature Encounter: 26 Dec 2009 Type: Uro Prostate Visit [facility] [place] Mail Code [address] [place] [address] [place] [address] Office: [phone] RE: Laz Luna : 1960 [place]: 12/26/2009 OUTPATIENT VISIT NOTE CHIEF COMPLAINT: Urinary incontinence and erectile dysfunction. HISTORY OF PRESENT ILLNESS: Mr. Luna is a 49-year-old gentleman asked to be seen in consultation by Cindy Moy NP, for the above. He reports that about the last year he has been having some urinary urgency and urge incontinence. This has gotten much worse since being placed on a diuretic. For now, he is having increased frequency and his symptoms are worsened. He states that at times he does have to strain to urinate but not usually. He does feel that he empties his bladder well. He denies any hematuria. He denies any dysuria. He denies intermittency, although he does state that his stream does change character at times. Regarding his erectile dysfunction, he states that he feels that his penis is getting smaller and hehas tried Viagra in the past which did not help him at all. He is unable to have intercourse and is frustrated with this situation. PAST MEDICAL HISTORY: Significant for hypertension, diabetes, also back surgery at L4-5 back in 1988for disk herniation. MEDICATIONS: His chart was reviewed for a list of medications. ALLERGIES: Cipro. FAMILY HISTORY: Significant for arthritis, stroke, enlarged prostate, diabetes, hypertension, cancer, heart disease and kidney failure. SOCIAL HISTORY: He lives at home with his dad and his . He does not have any children. 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 He does not smoke and does not drink any alcohol. REVIEW OF SYSTEMS: Review of systems is negative on a 14-point scale except for the diabetes mentioned, as well as the frequency of urination. PHYSICAL EXAMINATION: On physical examination, he is 347 pounds. Blood pressure is 143/78, pulse 95.He is alert and oriented x three, in no acute distress. No increased respiratory effort. Abdomen is soft. He is mildly obese. Penis is somewhat buried but meatus is within normal limits. There are no probable plaques. There is no pain. His left testicle is within normal limits and there are no palpable masses. His right testicle is a little bit more ascended and was a little bit more difficult to palpate but was grossly within normal limits. Rectal examination revealed a 25 gram prostate, nontender,and no palpable masses. Lower extremities showed mild edema, full range of motion. Skin is warm to touch. Affect was normal. Residual volume done by nursing on bladder scan was 125 cc. PROCEDURE: We elected to proceed with a cystoscopy at this time to evaluate for obstruction. The patient was consented and taken to the cysto suite where he was prepped and draped in the usual fashion.Intraurethral lidocaine was injected and given time to take effect. A flexible 16 Slovak cystoscope was then inserted through the urethra which was within normal limits to the prostate which was approximately 2 to 2.5 cm in length with obstructing lateral lobes but no median lobe. The bladder had 1+ trabeculation. There were no tumors, diverticula or stones. Bilateral UOs were seen effluxing clear urine. The cystoscope was withdrawn and the patient tolerated the procedure well. ASSESSMENT: 1. Mild urgency with urge incontinence, no frequency, exacerbated by the use of diuretics. Erectile dysfunction, failed Viagra. PLAN: 1. Before the cystoscopy was done, the patient had a PSA drawn, we will chart check this. We will schedule urodynamics to evaluate for obstruction. If obstruction, then we will try a course of alpha blockers for the patient. If no signs of obstruction, then we will try an anticholinergic. Regarding his erectile dysfunction, we can try Cialis 20 mg to take three times a week and if no improvement, then we can move on to [place]. Thank you so much for allowing me to participate in Mr. Luna's care. It was my pleasure to meet him today and I will continue to keep you updated on his progress. Una Conley MD Department of Urology [id number] cc: Cindy Moy NP [address] [address] Electronically signed by:J[facility] Heart M.D. Dec 27 2009 4:27PM TECHNICIAN BIOLOGICAL HEALTH documented in this encounter Plan of Treatment Not on filedocumented as of this encounter Visit Diagnoses Not on filedocumented in this encounter
--- OUTSIDE RECORDS SUMMARY | 2022-07-29 11:04 | XMS_ITS | Encounter Summary ---
:1960 Author Organization [facility] Address [address] [place] [address] Care Team Providers Name Role Phone Unavailable Primary Care Provider Unavailable Encounter Details Date Type Department Care Team Description 04/02/2010 Office Visit-[facility] INTERFACE [facility] DEPT Provider, [facility] Nurs e Social History Tobacco Use Types Packs/Day Years Used Date Smoking Tobacco: Never Assessed Sex Assigned at Date Recorded Not on file documented as of this encounter Progress Notes Provider, [facility] Nurse - 04/02/2010 1:38 PM CDT Ratoprinter: Mildred Linares Status: Final - Signature Encounter: 02 Apr 2010 Type: Chart Note Recorded as Task Date: 03/29/2010 01:25 PM, Created By: Dariana Skaggs Task Name: Call Patient Assigned To: Radha Morales Regarding Patient: JEREMY, ED, Status: Active Comment: Dariana Skaggs - 29 Mar 2010 1:25 PM TASK CREATED Caller: Self; Other; mr barron called saying that he thought that he had an appointment for a test that was somewhere else but didn't get any call about. i assume he means the video urodynamics,but i don't know what has beendone about those. he would like you top call him. dariana ramirez I refaxed the order for pelvic floor with face sheet spoke with Karen and asked her to call him and set this up. mildred Electronically signed by:Mildred Linares L.P.N. Apr 02 2010 1:39PM ENTREPRENEURSHIP PROGRAM DIRECTOR documented in this encounter Plan of Treatment Not on filedocumented as of this encounter Visit Diagnoses Not on filedocumented in this encounter
--- OUTSIDE RECORDS SUMMARY | 2022-07-29 11:04 | XMS_ITS | Encounter Summary ---
:1960 Author Organization [facility] Address [address] [place] [address] Care Team Providers Name Role Phone Unavailable Primary Care Provider Unavailable Encounter Details Date Type Department Care Team Description 06/21/2013 [facility] Health Asp[facility]ebas Unspecified adjustment System in [place] [facility] [place] reaction (Primary Dx) Psychology [address] [place] [address] [place] [address] [phone] Social History Tobacco Use Types Packs/Day Years Used Date Smoking Tobacco: Never Assessed Sex Assigned at Date Recorded Not on file documented as of this encounter Plan of Treatment Not on filedocumented as of this encounter Visit Diagnoses Diagnosis Unspecified adjustment reaction - Primar y documented in this encounter
--- OUTSIDE RECORDS SUMMARY | 2022-07-29 11:04 | XMS_ITS | Encounter Summary ---
:1960 Author Organization [place] Address [address] [place] [address] Care Team Providers Name Role Phone Unavailable Primary Care Provider Unavailable Encounter Details Date Type Department Care Team Description 06/28/2013 Office Visit [facility] Mehreen Perez Av ed adjustment System in [place] HAKEEM [place] reaction (Primary Dx) Psychiatry [address] [phone] Social History Tobacco Use Types Packs/Day Years Used Date Smoking Tobacco: Never Assessed Sex Assigned at Date Recorded Not on file documented as of this encounter Last Filed Vital Signs Vital Sign Reading Time Taken Comments Blood Pressure - - Pulse - - Temperature - - Respiratory Rate - - Oxygen Saturation - - Inhaled Oxygen Concentration - - Weight 154.9 kg (341 lb 8 oz) 06/28/2013 3:47 PM CDT Height - - Body Mass Index - - documented in this encounter Progress Notes Luz Lindsay - 06/29/2013 12:06 PM CDT BRIEF DISCUSSION NOTE: Time spent with client approximately 45 - 50 minutes. This is the 4th session for the [facility] Program on weight management. Specifically accomplished today was a lecture on creating a healthy support system. There was a chance for each participant to speak of support systems and creating them in the past and what has worked. A discussion followed. The patient was invited to join the group next week and the topic is physical activity. Ed weighed today 341.5 pounds. AM:karinas D: 06-28-13 Mehreen Perez, NEWS SPECIALIST T: 06-29-13 documented in this encounter Plan of Treatment Not on filedocumented as of this encounter Visit Diagnoses Diagnosis Unspecified adjustment reaction - Primar y documented in this encounter
--- OUTSIDE RECORDS SUMMARY | 2022-07-29 11:04 | XMS_ITS | Encounter Summary ---
:1960 Author Organization [place] Address [address] [place] [address] Care Team Providers Name Role Phone Unavailable Primary Care Provider Unavailable Encounter Details Date Type Department Care Team Description 02/19/2010 Office Visit-[email or web address] INTERFACE [email or web address] DEPT Provider, [facility] Nurs e Social History Tobacco Use Types Packs/Day Years Used Date Smoking Tobacco: Never Assessed Sex Assigned at Date Recorded Not on file documented as of this encounter Progress Notes Provider, [facility] Nurse - 02/19/2010 1:39 PM CDT County Bailiff: Mildred Linares Status: Final - Signature Encounter: 19 Feb 2010 Type: Chart Note Recorded as Task Date: 02/15/2010 12:14 PM, Created By: Estephania Iniguez Task Name: Call Back Assigned To: Radha Morales Regarding Patient: JEREMY ED, Status: Active Comment: Estephania Iniguez - 15 Feb 2010 12:14 PM TASK CREATED Patient is calling besause he needs the test results and visit notes form last visit. [facility] #[phone] please call patient. [phone] Thanks Tonie faxed to [phone] mildred Electronically signed by:Mildred Linares L.P.N. Feb 19 2010 1:39PM SUPERVISOR WHEEL SHOP documented in this encounter Plan of Treatment Not on filedocumented as of this encounter Visit Diagnoses Not on filedocumented in this encounter
--- OUTSIDE RECORDS SUMMARY | 2022-07-29 11:04 | XMS_ITS | Encounter Summary ---
:1960 Author Organization [place] Address [address] [place] [address] Care Team Providers Name Role Phone Unavailable Primary Care Provider Unavailable Encounter Details Date Type Department Care Team Description 05/03/2013 [facility] Health AspSebas Unspecified adjustment System in [place] [facility] [place] reaction (Primary Dx) Psychology [address] [place] [address] [place] [address] [phone] Social History Tobacco Use Types Packs/Day Years Used Date Smoking Tobacco: Never Assessed Sex Assigned at Date Recorded Not on file documented as of this encounter Miscellaneous Notes Addendum Note - Michell Pyle - 05/13/2013 1:12 PM CDT Addended by: MICHELL PYLE on: 05/13/2013 01:12 PM Modules accepted: SmartSet documented in this encounter Plan of Treatment Not on filedocumented as of this encounter Visit Diagnoses Diagnosis Unspecified adjustment reaction - Primar y documented in this encounter
--- OUTSIDE RECORDS SUMMARY | 2022-07-29 11:04 | XMS_ITS | Encounter Summary ---
:1960 Author Organization [place] Address [facility] [place] [address] Care Team Providers Name Role Phone Unavailable Primary Care Provider Unavailable Encounter Details Date Type Department Care Team Description 12/26/2009 Historic Results [facility] Jarvis Heart MD [place] [address] [facility] [address] [place], [place] [address] [phone] Social History Tobacco Use Types Packs/Day Years Used Date Smoking Tobacco: Never Assessed Sex Assigned at Date Recorded Not on file documented as of this encounter Plan of Treatment Not on filedocumented as of this encounter Procedures Procedure Name Priority Date/Time Associated Diagnosis Comme nts PSA TUMOR MARKER Routine 12/26/2009 2:37 PM Resul ts for this CDT procedure are i n the results section. documented in this encounter Results PSA tumor marker (12/26/2009 2:37 PM CDT) P athologist Signature PSA 1.55 0 - 4 ug/L MISYS Specimen Anatomical Collection Method Collection Time Receive d Time (Source) Location / / Volume Laterality 12/26/2009 2:37 PM 0 2:42 CDT PM CDT Jarvis Heart MD LAB - BLOOD ORDERABLES Performing Organization Address City/State/ZIP Code Phon e Number MISYS documented in this encounter Visit Diagnoses Not on filedocumented in this encounter
--- OUTSIDE RECORDS SUMMARY | 2022-07-29 11:05 | XMS_ITS | Encounter Summary ---
:1960 Author Organization [facility] Address [address] [place] [address] Care Team Providers Name Role Phone Cintia [place] MD Primary Care Provider [phone] Reason for Visit Reason Comments QUESTIONS, GENERAL Encounter Details Date Type Department Care Team Description 07/14/2022 Telephone Specialty Center 435 Delgado Gottlieb MD QUESTIONS, GENERAL Orthopedics Clinic [address] [place] [address] [place] [address] [phone] Social History Tobacco Use Types Packs/Day Years Used Date Smoking Tobacco: Never Smokeless Tobacco: Never Alcohol Use Standard Drinks/Week Comments Not Currently 0 (1 standard drink = 0.6 oz pure alcoho l) Food Insecurity Answer Date Recorded Within the past 12 months, you worried that your food would Never true 10/01/2021 run out before you got money to buy more. Within the past 12 months, the food you bought just didn't N ever true 10/01/2021 last and you didn't have money to get more. Sex Assigned at Date Recorded Not on file documented as of this encounter Nursing Notes Rosetta Ye RN - 07/15/2022 9:33 AM CST Noted. Rosetta Ye RN 07/15/2022, 9:33 AM E PAINTER Delgado Gottlieb MD - 07/14/2022 11:04 PM CST Sorry this has been such a challenging situation to handle. Unfortunately I don't think there is anyeasy solution. Ed seems unwilling to accept our recommendations or help so I don't think there is much more we can do for him right now. I had told him that I was willing to prescribe something stronger for pain but it sounded like he doesn't have a way to get the prescription. Rosetta Parker RN - 07/14/2022 12:30 PM CST I called and informed patient the information from Dr Gottlieb below. He states that it isn't a DVT and he isn't getting the ultrasound. He states he still has the pain and he still isn't able to sleep at night. He states the pain wakes him up. He was asked if he has pain medication to take at home. He states, I will take them along with my sleeping pills and a bottle of whiskey. I asked Ed if he is feeling suidical. He hung up the phone. I called him back and he states that we got disconnected. He again was asked if he is feeling suicidal. He raised his voice and states how would you feel if you were to know that everything you had isgoing to be taken away from you? He states I need to get back to work. He states he was informed that he cannot get back to work until October and that made things a lot worse. He was asked if heis needing help. He states I ain;t gonna accept help. He states he is depressed. He is tired of laying around not being able to do anything. He states, Now my is coming in here. I need to go. Please advise. Thank you. Rosetta Ye RN 07/14/2022, 1:07 PM Delgado Loyola MD - 07/14/2022 12:08 PM CST Agree with the recommendations. Unfortunately I think we just need to ride this out with the pain asI still do not think that surgery is a good idea for this new fracture. His symptoms are concerning enough that my preference would still be to get the DVT ultrasound. However, if the patient refuses to do this then we just need to document that. Thanks. Rosetta Parker RN - 07/14/2022 10:47 AM CST I called and spoke with Ed, who states that his left ankle swelled up over the weekend. He states itis twice as big as it should be. He states the back of his calf is tender whenever it is touched. He was asked if he ever went in to get his US. He states it is not a blood clot. He states, I never had a blood clot. I never will get a blood clot. My blood is too thin for that. He states it is the first time that the foot and ankle has ever swollen. He states he is having a stabbing pain in the foot. He states he has a constant burning from the knee down. He states that his has informed him that he has gotten more confident in his transfers since he has gotten the brace. He states he is trying to figure out how to get to [facility] to get groceries vs [facility] as it costs too much to go to [employer]. Hedenies any new activity. He states he has been icing and elevating all the time. He was encouraged to continue icing around the knee and elevating the foot able the level of the knee and knee above hipand heart level. Please advise. Thank you. Rosetta Ye RN 07/14/2022, 11:03 AM Nory PHIPPS Mai - 07/14/2022 9:59 AM CST Has the patient recently had surgery or an injury? Yes. Date of Surgery: October 01, 2021 Type of Surgery: ORIF of left supracondylar distal femur fracture, utilizing both plate and nail fixation How may we help you today? Patient is stated that his left leg has cast on and its burning feeling down to his knee and down to his ankle swelling twice the size and it started over the weekend. He stated when he gets on the bed it hurts to touch. Is not able to put any ice on the leg, Ortho Pain Questionnaire Date of Surgery October 01, 2021 Type: ORIF of left supracondylar distal femur fracture, utilizing both plate and nail fixation Pain Rating (0-10) Patient stated that he doesn't have level Location of Pain left knee Description aching, burning, cramping, dull, sharp, stabbing, and throbbing pt stated mostly burning, stabbing pain. Onset of Pain at time of injury Appearance Swelling Any recent falls/injury? no What makes it better? 3 Ibprofen and 3 arthritis tablet What makes it worse? Sitting sometimes its worst , twisting, and pulling Using assistive device? Walker and Wheelchair Is it okay to leave detailed message on your voicemail? Yes Nory Padilla Mai 07/14/2022, 10:06 AM E PAINTER documented in this encounter Plan of Treatment Upcoming Encounters Date Type Specialty Care Team Description 08/04/2022 Appointment Orthopedics Delgado Gottlieb MD [address] [place], [place] [address] (Gavi rk) 10/08/2022 Appointment Orthopedics Delgado Gottlieb MD [address] [place], [place] [address] (Wo rk) 05/27/2023 Appointment Chemo Therapy/Infusion Services documented as of this encounter Visit Diagnoses Not on filedocumented in this encounter Care Teams Android Platform Developer Relationship Specialty Start Date End Date Cintia [place] MD PCP - General Family Practice 09/30/21 documented as of this encounter
--- OUTSIDE RECORDS SUMMARY | 2022-07-29 11:05 | XMS_ITS | Encounter Summary ---
:1960 [facility] Address [address] [place] [address] Care Team Providers Name Role Phone Cintia [place] MD Primary Care Provider [phone] Reason for Referral Procedure/Equipment (Routine) - Incomplete Specialty Diagnoses / Procedures Referred By Contact Refer red To Contact Diagnoses Pain of left lower leg Delgado Gottlieb MD Procedures US VENOUS LEFT LOWER EXTREM DOPPLER [address] [place] [address] Referral ID Status Reason Start Date Expiration Date Visits V isits Requested Authorized [id number] Incomplete 06/30/2022 09/29/2023 1 1 Reason for Visit Reason Comments QUESTIONS, GENERAL Encounter Details Date Type Department Care Team Description 06/26/2022 Telephone Specialty Center 435 Delgado Gottlieb MD QUESTIONS, GENERAL Orthopedics Clinic [address] [place] [address] [place] [address] [phone] Social History Tobacco Use Types Packs/Day Years [...] encounter Nursing Notes Rosetta Ye RN - 07/14/2022 10:48 AM CST I spoke with Ed as he had called in in a separate encounter. He was informed of the letter and he states it is no good to me if it cannot be emailed to me. He states I don't have any way of getting the letter otherwise. He states, I told you to forget it. He was informed that we could fax it directly to his insurance or to his bank. He states that he has someone at the bank that he needs to speak to directly. He states that he does not want it faxed to his insurance or the bank. He states They will just take my truck and probable my minvan. I will be bhavin if they don't take my house. He states, At least I will have a place to stay. Rosetta Ye RN 07/14/2022, 10:55 AM AMBULANCE DRIVER Gretchen Patino ATC - 07/10/2022 9:22 AM CDT I left a voicemail for Ed that I had provided the letter, stating that he is unable to work and would anticipate he be unable to work for 8-12 weeks out from the injury depending on his recovery process, and left our clinic number to call if he has a fax number that he would [facility] he would like us to leave the letter at the front office java developer for someone to cherry picker operator for him. Unfortunately, as Rosetta told the patient, we are not able to email the letter. Gretchen Patino ATC 07/10/2022, 9:24 AM Gretchen Patino ATC - 07/09/2022 3:42 PM CDT Letter provided per recommendations from Dr. Gottlieb, though I will reach out to him regarding how toget the letter to the patient. Gretchen Patino ATC 07/09/2022, 3:43 PM Rosetta Ye RN - 07/08/2022 3:37 PM CDT I called and spoke with Ed, who states that he forgot to ask yesterday when he was in, for a letter for his insurance company to let them know of his injury and how long he will be off work. He is requesting it to be emailed to his home at [email or web address]. He was informed that we do not sendletters via email as we do not have a secure portal on our end. He was advised to set up a [employer] account and we could get him some help to do so. He states that he does not know how to set up a [employer] account and does not want all the hassles that go along with it. I had asked him to contact his insurance to get a fax number to fax it directly to them, but states then he wouldn't get a copy. He was informed that we could mail it to him. He states that he doesn't get mail at his place and he would have to go into town to get it and he isn't able to drive at this time. He became upset and said toforget it and I'll just let the insurance take everything and he hung up the phone. Please advise on letter. Thank you. Rosetta Ye RN 07/08/2022, 3:46 PM Nory Krishna - 07/08/2022 1:26 PM CDT Patient is returning a call back. Nory Padilla Mai 07/08/2022, 1:26 PM Jenniffer Carpenter RN - 07/08/2022 9:19 AM CDT Rosetta is not in until later today, Customer Service Officer did reach out to see if we could help with any questions. Left message for pt to call back at [phone] and press the option for [facility]. Jenniffer Carpenter RN 07/08/2022, 9:19 AM Malka Reyes - 07/08/2022 9:01 AM CDT Patient called stating they forgot to ask Dr. Gottlieb a question in their appointment with him yesterday and would like it if Rosetta could call him back. Malka Reyes 07/08/2022, 9:03 AM Rosetta Ye RN - 07/03/2022 8:45 AM CDT Patient is calling in stating that he twisted his knee Jessie night getting off the toilet. He states he lost his balance and Julissa couldn't catch him. He states it is hard not to put weight on on hisleg when he gets on and off the toilet. He states the knee looks like he has 2 knee caps. He states there is more swelling on the lower one over the fracture. He states the pain has gotten worse too.I informed him that if the pain has worsened and he feels that he needs to be seen, he can go to urgent care for evaluation, otherwise it is icing and elevation above heart level to get the swelling down and lessen the pain. He was asked about getting the US, but states that they never called him to [facility]. He was informed that he can call and schedule with [facility] as the order has been placed. He states that they need to clear it with his insurance and then they will call him. He states I don't think there is a blood clot anyway. He states the area has a bruise on the calf because it had beenlaying on the pillows in the same position for 4 days. He was reminded to shift his body weight every [address] pillows to leave that area free without laying on pressure. Well that would be difficult to do because the area is near the fracture site and it needs the support. He states he will be asking for a note for his insurance company when he comes in on Thursday to let them know ofthe injury and how long he will be off work. He states he will follow up on Thursday unless anything happens before then. FYI to care team. Rosetta Ye RN 07/03/2022, 9:19 AM Malka Reyes - 07/03/2022 8:13 AM CDT Patient called requesting to speak with Rosetta because she knows their long story, regarding their leg pain. Malka Reyes 07/03/2022, 8:14 AM Rosetta Ye RN - 07/01/2022 10:48 AM CDT Contacted Mily to check on the duplex doppler results. Patient has not had it done. [facility] at [phone] and follow the prompt for [facility] and ask to speak with one of the nurses to check on his ability to get it completed and update his symptoms. Rosetta Ye RN 07/01/2022, 10:49 AM Rosetta Ye RN - 06/30/2022 1:51 PM CDT Patient is stating that Mily has not received the order yet. He was informed that the fax did not go through. He is stating that it should be faxed to [phone]. He states I can't read my own writing. My 5's look like a 7 and is should have been a 1. The order has been faxed to the updated number. Confirmation received. Rosetta Ye RN 06/30/2022, 1:56 PM Rosetta Ye RN - 06/30/2022 11:23 AM CDT Patient states that his insurance is telling him that it may take up to 7 days to get a ride as he already used up his short notice ride. He states he is going to see what they say once they get the order. He states he is needing the order faxed to [facility] at [phone]. Order has been faxed as requested. Rosetta Ye RN 06/30/2022, 11:26 AM T Rosetta Ye RN - 06/30/2022 9:45 AM CDT I spoke with Dr Gottlieb regarding the information below. He is wanting to proceed with an US to the LLE to rule out a DVT. He states he is willing to prescribe Tylenol #3 if patient is needing somethingfor the pain. I called Ed back and informed him of this information. He is going to check with his insurance for transportation to get it done. He was informed that if it is a DVT, it could break free, travel and end up in the heart and lungs and potentially kill him. He was encouraged to get it done today if possible and it is strongly recommended that he get it done today. He will check with his insurance to seeif they make any exceptions to the 48 hour notice. He will let us know if he would get it done at [facility] closer to him or come to the [facility]. He states he has enough other medication at home with he vicodin and oxycodone left over from previous injuries that he does not need Tylenol # 3 at this time. Rosetta Ye RN 06/30/2022, 10:03 AM Rosetta Lee RN - 06/30/2022 9:23 AM CDT Patient is stating that the pain is getting worse and something needs to be done. He states it it hard not to put weight on the leg when he gets up to the bathroom. He states the pain is on the inside of the knee and it shoots down to the ankle. He states It feels like an ice pick stabbing me in the knee. It kills me. I'm in so much pain. He is also stating that he has a red and sore spot on the lower portion of his calf 2.5-3 inches in length and width. He denies it being open and draining,but he states it is ready to be. It is sore and tender to touch. He states he has increased pain thewhole length of his lower leg with dorsiflexion. Please advise. Thank you. Rosetta Ye RN 06/30/2022, 9:36 AM Malka Reyes - 06/30/2022 8:17 AM CDT Patient called requesting Rosetta give him a call back as soon as possible on his cell number. Patientdid not want to state what it is regarding. Malka Reyes 06/30/2022, 8:18 AM Rosetta Ye RN - 06/26/2022 11:10 AM CDT Patient was transferred through to [place]. Patient is stating that his pain is increasing. He states that he was informed not to put weight on it, but it is difficult to not put weight on it when I get upto the bathroom. He states the leg wants to twist all the time. He states he is noticing more swelling into the ankle. He states he is able to bend the knee, but it also gets so stiff. He states that the pain is also making him sick to his stomach and he has been getting dizzy and lightheaded. His last Hgb 3 weeks ago was 7.8. He states he is chronically low and it has always been that way. He wasadvised that if he continues to have issues with this to get in to be seen with his PCP for evaluation. He verbalized understanding. He is elevating in his recliner as the couch is too low to sit down on and it is difficult to maneuver the walker to get to his bed to lay down. He was informed that he needs to get his hips at the level of his heart. We reviewed his resources at home. The cushions of his couch come off and he can use those for height. If he could take a couch cushion and get it under his hips when he is reclining, and the leg ramp with another couch cushion for higher elevation it would be helpful to obtain the height that is needed to get the foot higher than the knee and the knee higher that hip and heart level. He was informed that he is in peak swelling time following a fracture and the increased pain can be from the increased swelling. He was informed that instead of just icing the front of the knee, to wrap the knee all the way around for 20 minutes every hour to help decrease the swelling. He was informed that the more swelling he is having in the knee, the more swelling he may notice into the foot and ankle as the fluids are having trouble getting up through the swollenknee. He will have Julissa help with more routine icing and helping to set up the elevation. He was also inquiring on having surgery vs non operative treatment. He was informed that Dr Gottlieb felt that the fracture was in good alignment when he was seen yesterday. He was informed that when he comes backin for a follow up appointment on 07/07 repeat xrays will be taken to see if things are still in alignment and further decisions will be made at that time if he would need surgery or stay on course. Heverbalized understanding. FYI to care team. Rosetta Ye RN 06/26/2022, 11:56 AM Nory PATEL Mai 06/26/2022 10:47 AM CDT Has the patient recently had surgery or an injury? Yes. Date of Surgery : October 01, 2021 Type of Injury: ORIF of left supracondylar distal femur fracture, utilizing both plate and nail fixation How may we help you today? Patient stated that his leg is getting worst. Decline to share any further information. Is it okay to leave detailed message on your voicemail? Yes Nory Padilla Mai 06/26/2022, 10:48 AM documented in this encounter Plan of Treatment Upcoming Encounters Date Type Specialty Care Team Description 08/04/2022 Appointment Orthopedics Delgado Gottlieb MD [address] [place], [place] [address] (Wo rk) 10/08/2022 Appointment Orthopedics Delgado Gottlieb MD [address] [place], [place] [address] (Gavi rk) 05/27/2023 Appointment Chemo Therapy/Infusion Services Scheduled Orders Name Type Priority Associated Diagnoses Order S chedule US VENOUS LEFT LOWER Imaging New STAT Pain of left lower l eg Expected: 06/30/2022, EXTREM DOPPLER Expires: 06/08 documented as of this encounter Visit Diagnoses Diagnosis Pain of left lower leg - Primary Pain in limb documented in this encounter Care Teams Traffic Monitor Specialist Relationship Specialty Start Date End Date Cintia [place] MD PCP - General Family Practice 09/30/21 documented as of this encounter
--- OUTSIDE RECORDS SUMMARY | 2022-07-29 11:05 | XMS_ITS | Encounter Summary ---
:1960 [facility] Address [address] [place] [address] Care Team Providers Name Role Phone Cintia [place] MD Primary Care Provider [phone] Encounter Details Date Type Department Care Team Description 06/16/2022 Notes/Orders [facility] Cesar Champagne, [address] [place], [place] [address] [address] [place] [address] [place] [address] (Gavi presley) Social History Tobacco Use Types Packs/Day Years [...] as of this encounter Plan of Treatment Upcoming Encounters Date Type Specialty Care Team Description 08/04/2022 Appointment Orthopedics Delgado Gottlieb MD [address] [place] [address] (Gavi rk) 10/08/2022 Appointment Orthopedics Delgado Gottlieb MD [address] [place] [address] (Wo rk) 05/27/2023 Appointment Chemo Therapy/Infusion Services documented as of this encounter Visit Diagnoses Not on filedocumented in this encounter Care Teams Skatesman Relationship Specialty Start Date End Date Cintia [place] MD PCP - General Family Practice 09/30/21 documented as of this encounter
--- OUTSIDE RECORDS SUMMARY | 2022-07-29 11:05 | XMS_ITS | Encounter Summary ---
:1960 Author Organization [facility] Address [address] [place] [address] Care Team Providers Name Role Phone Cinita Cobb MD Primary Care Provider [phone] Reason for Visit Reason Comments PAIN, NOS Encounter Details Date Type Department Care Team Description 06/23/2022 Telephone [facility] Delgado Gottlieb MD PAIN, NOS Orthopedics Clinic [address] [place], [place] [address] [place] [address] [phone] Social History Tobacco Use Types Packs/Day Years [...] encounter Nursing Notes Rosetta Ye RN - 06/24/2022 10:55 AM CDT I called and spoke with patient who states that he is wondering if hydrocodone can cause a headache.He was informed that it can cause lightheadedness, dizziness, headache, nausea, vomiting. He states that he had a nasty headache last night. He states he had taken some Hydrocodone left over from a previous surgery so he could get up to the bathroom. He states it helped with the pain, but he had a badheadache. He states the headache has gotten better. It is not completely gone, but is better. He states it is across his forehead and top of his head. I informed him that it may be from allergies, or tension as to how he is carrying his body weight with movement in his shoulders due to the pain. He was informed to not exceed 3000 mg of Tylenol a day and each tablet of hydrocodone has 35 mg per tablet. He verbalized understanding. He states he also got off the phone with his insurance to arrange for transportation to his appointment tomorrow. He was informed that Dr Gottlieb is wanting to have him geta CT prior to his appointment at 10:40. He states that he had instructed his ride that the appointment was at 11:00. I asked that he contact them to let them know it is at 11, but the CT is at 10:40. He is not willing to call them back for fear that it will create an issue altogether with getting transportation. Rosetta Ye RN 06/24/2022, 11:11 AM Britany Lopez - 06/24/2022 9:51 AM CDT Patient is specifically requesting to speak to Rosetta only. He stated he needs Rosetta to call him backASAP if not sooner, He refused to give anymore information as to why, hung up when I was speaking toellie. Please contact LA[facility] to advise. Britany Lopez 06/24/2022, 9:54 AM Rosetta Ye RN - 06/23/2022 10:10 AM CDT Please see previous encounter. Ok to close. Rosetta Ye RN 06/23/2022, 10:10 AM Nory Krishna - 06/23/2022 8:48 AM CDT Has the patient recently had surgery or an injury? Yes. Date of Surgery: October 01, 2022 Type of Surgery: ORIF of left supracondylar distal femur fracture, utilizing both plate and nail fixation How may we help you today? Patient is calling regarding about his left leg. He stated that he is notable to walk since over the weekend. He is had fell in [place]. He was not able to walk or drive hisvehicle back home. He stated that he have tried to ice it all day what the patient stated. Is it okay to leave detailed message on your voicemail? Yes Nory Padilla Mai 06/23/2022, 8:53 AM documented in this encounter Plan of Treatment Upcoming Encounters Date Type Specialty Care Team Description 08/04/2022 Appointment Orthopedics Delgado Gottlieb MD [address] [place] [phone] (Gavi presley) 10/08/2022 Appointment Orthopedics Delgado Gottlieb MD [address] [place], [place] [address] (Gavi presley) 05/27/2023 Appointment Chemo Therapy/Infusion Services documented as of this encounter Visit Diagnoses Not on filedocumented in this encounter Care Teams Senior Education Specialist Relationship Specialty Start Date End Date Cintia Cobb MD PCP - General Family Practice 09/30/21 documented as of this encounter
--- OUTSIDE RECORDS SUMMARY | 2022-07-29 11:05 | XMS_ITS | Encounter Summary ---
:[address] [facility] Address [address] [place] [address] Care Team Providers Name Role Phone Cintia Cobb MD Primary Care Provider [phone] Reason for Visit Reason Comments Nurse Return Call Request Requesting to speak with RN Encounter Details Date Type Department Care Team Description 07/22/2022 Telephone [facility] Delmer Valladares, Nurse Return Call CENTER EMMA Request (Requesting to [address] [place] [address] Dr speak with RN) [place], [place] [address] [place], [place] [phone] (Wo rk) Social History Tobacco Use Types [...] documented as of this encounter Nursing Notes Delmer Valladares, EMMA - 07/28/2022 9:45 AM CST LMTRC. The commercial was for Evenity- the once-monthly injection to strengthen bones. We don't use this in combination with Reclast as there wouldn't be any additional benefit. The medication also has not been shown to speed up fracture healing. We could consider it in the future. Delmer OR PROCESS ENGINEER Loly Kelley RN - 07/23/2022 9:14 AM CST Patient calling reporting he got Reclast infusion in April. He states he was watching TV and saw an ad for an oral pill that will strengthen bones within 12 months. He cannot remember the name. He is wondering if he can start taking the oral medication and still get the yearly Reclast. Discussed with patient how it was likely Fosamax or something similar, and generally patients are not on oral and infusion medications for osteoporosis at the same time. Patient is wondering if this is always true? He would like to do everything he can to heal his fx sohe can return to work willie. Is there any oral medication patient could take concurrently wit the Reclast that might help speed up his healing? Sending to Delmer to further advise Nancy Torres - 07/22/2022 2:29 PM CST Has the patient recently had surgery or an injury? N/A How may we help you today? Patient called requesting a call from a nurse to pass on a question to provider Delmer Valladares. Patient declined for CC agent to type out question.Patient requested to speak with the care team instead to ask his question directly. Describe your symptoms/concerns: n/a When did the issue start: n/a Have you been seen for this recently?: n/a [Heat And Vent Aircraft Mechanic/Appt Center: If yes, please include date and provider.] Is it okay to leave detailed message on your voicemail? No voicemail set up per patient. Please callpatient's mobile at [phone] per request. [Heat And Vent Aircraft Mechanic/Appt Center: If this call is after 3 p.m., communicate to patient: If we are not able to get back to you by the end of the day and your symptoms worsen please contact the Careline] OR PROCESS ENGINEER documented in this encounter Plan of Treatment Upcoming Encounters Date Type Specialty Care Team Description 08/04/2022 Appointment Orthopedics Delgado Gottlieb MD [address] [place], [place] [address] (Wo rk) 10/08/2022 Appointment Orthopedics Delgado Gottlieb MD [address] [place], [place] [address] (Wo rk) 05/27/2023 Appointment Chemo Therapy/Infusion Services documented as of this encounter Visit Diagnoses Not on filedocumented in this encounter Care Teams Real Estate Administrative Assistant Relationship Specialty Start Date End Date Cintia Cobb MD PCP - General Family Practice 09/30/21 documented as of this encounter
--- OUTSIDE RECORDS SUMMARY | 2022-07-29 11:05 | XMS_ITS | Encounter Summary ---
:1960 Author Organization [facility] Address [address] [address] Care Team Providers Name Role Phone Cintia Cobb MD Primary Care Provider [phone] Reason for Visit Procedure/Equipment (Routine) - Incomplete Specialty Diagnoses / Procedures Referred By Contact Refer red To Contact Diagnoses Closed fracture of distal end of left femur with routine healing, unspecified fracture morphology, subsequent encounter Delgado Gottlieb MD Procedures XR Knee Lt [address] [place] [address] Referral ID Status Reason Start Date Expiration Date Visits V isits Requested Authorized [id number] Incomplete 07/07/2022 10/06/2023 1 1 Encounter Details Date Type Department Care Team Description 07/07/2022 Ancillary [facility] Delgado Gottlieb Closed frac ture of Procedure Specialty Center Donnell Murray MD distal end of left Radiology [address] with routine [address] healing, [place] [address] [place], [place] unspecified [phone] fracture [phone] morphology, (Work) subsequent [phone] encounter (Fax) Social History Tobacco Use Types Packs/Day Years [...] 08/04/2022 Appointment Orthopedics Delgado Gottlieb MD [address] [place], [place] [address] (Wo rk) 10/08/2022 Appointment Orthopedics Delgado Gottlieb MD [address] [place], [place] [address] (Wo rk) 05/27/2023 Appointment Chemo Therapy/Infusion Services documented as of this encounter Procedures Procedure Name Priority Date/Time Associated Diagnosis Comme nts XR KNEE LT 2 VIEWS Routine 07/07/2022 12:47 PM Closed fracture of Results for this CDT distal end of left procedure are in femur with routine the resul ts healing, unspecified section . fracture morphology, subsequent encounter documented in this encounter Results XR Knee Lt 2 Views (07/07/2022 12:47 PM CDT) Anatomical Region Laterality Modality Lower Extremity, Knee Computed Radiograp hy Specimen (Source) Anatomical Collection Method Collection Time Re ceived Time Location / / Volume Laterality 07/07/2022 12:47 PM CDT Narrative 07/07/2022 3:21 PM CDT EXAM: XR KNEE LT 2 VIEWS LOCATION: [place] [address] DATE/TIME: 07/07/2022 12:47 PM INDICATION: Left distal femur fracture COMPARISON: 04/02/2022 IMPRESSION: The bones are demineralized. Intramedullary ovidio and metallic sideplate and screws are seen bridging the comminuted fracture of the distal femur. Some interval healing has occurred. No hardwa re complication. Vascular calcifications . Minimal knee effusion. Avulsion fracture off of the tibial tuberosity is seen with mild displacement of fracture fragments. There is overlying soft tissue swelling. Procedure Note Julissa Mendes MD - 07/07/2022 EXAM: XR KNEE LT 2 VIEWS LOCATION: [facility] 435 DATE/TIME: 07/07/2022 12:47 PM INDICATION: Left distal femur fracture COMPARISON: 04/02/2022 IMPRESSION: The bones are demineralized. Intramedullary ovidio and metallic sideplate and screws are seen bridging the comminuted fracture of the distal femur. Some interval healing has occurred. No hardware complication. Vascular calcifications. M inimal knee effusion. Avulsion fracture off of the tibial tuberosity is seen with mild displacement of fracture fragments. There is overlying soft tissue swelling. Delgado Gottlieb MD RAD GD documented in this encounter Visit Diagnoses Diagnosis Closed fracture of distal end of left fe mur with routine healing, unspecified fracture morphology, subsequent encounte r documented in this encounter Care Teams Washing Machine Loader And Puller Relationship Specialty Start Date End Date Cintia Cobb MD PCP - General Family Practice 09/30/21 documented as of this encounter
--- OUTSIDE RECORDS SUMMARY | 2022-07-29 11:05 | XMS_ITS | Encounter Summary ---
:1960 Author Organization [facility] Address [address] [place] [address] Care Team Providers Name Role Phone Cintia Cobb MD Primary Care Provider [phone] Reason for Referral Procedure/Equipment (Routine) - Incomplete Specialty Diagnoses / Procedures Referred By Contact Refer red To Contact Diagnoses Closed fracture of distal end of left femur with routine healing, unspecified fracture morphology, subsequent encounter Delgado Gottlieb MD Procedures XR Knee Lt [address] [place] [address] Referral ID Status Reason Start Date Expiration Date Visits V isits Requested Authorized [id number] Incomplete 07/07/2022 10/06/2023 1 1 Reason for Visit Reason Comments FOLLOW-UP,FRACTURE Encounter Details Date Type Department Care Team Description 07/07/2022 Office Visit Specialty Center Delgado Gottlieb, Domenica sed fracture of [address] Orthopedics Clin ic distal end of left [address] [place] [address] [place], [place] healing, unspecified [phone] fracture morphology, subsequent enco unter (Work) (Primary Dx) Social History Tobacco Use Types Packs/Day Years [...] on file documented as of this encounter Patient Instructions Patient InstructionsMandy Bo LPN - 07/07/2022 1:20 PM CDT ORTHOPAEDICS DEPARTMENT PHONE NUMBER: [phone] Reason for today's visit: Non displaced tibial plateau fracture. Pressure sore. Supplies you will be leaving with: Brace-take off a few times a day to assess wound. Treatment plan: Hinged knee brace--when up and about. Toe touch weight bearing. Call if need pain medication. Follow up appointments: You will follow up with Dr. Delgado Gottlieb in 4 week(s). X-Rays: repeat knee Please stop at the check out desk to schedule a follow up appointment. Use this grid to write down your next appointment. DATE & TIME PROVIDER LOCATION APPT NOTES ( ) [facility]: [address] [place] [address] ( ) [facility]: [address] [place] [address] ( ) Other: F/u Non displaced tibial plateau fracture. Pressure sore. ( ) [facility]: [address] [place] [address] ( ) [address] ( ) Other: If you have any questions about your visit, your symptoms, your medication, your test results or it is not clear what your diagnosis or treatment plan is please contact us at [phone] or send us a secure message via [employer]. You may receive surveys via mail, e-mail or text regarding your visit and recovery. Your feedback isvery important to us. Please take a moment to complete them. If you would like to speak to someone specifically, you may contact the clinic at [phone] and your call will be directed to someone on our leadership team. Thank you for choosing [facility]. If you need to schedule an appointment, you may call our office at [phone]. We are open Thursday-Thursday 8 am - 5 pm. documented in this encounter Progress Notes Delgado Gottlieb MD - 07/07/2022 1:20 PM CDT Orthopaedic Follow-Up Note Date of Injury: 06/21/2022 NICOLETTE: fall directly on the left knee Diagnoses: - Left medial tibial plateau fracture with involvement of the tibial tubercle - History of left supracondylar distal femur fracture from a slip and fall on ice, status post ORIF utilizing both plate and nail fixation on 10/01/2021 - Chronic microcytic anemia, (hemoglobin 5.8 on arrival). - Complete heart block, status post pacemaker. - Atrial flutter. - Type 2 diabetes mellitus with peripheral neuropathy. - Hypertension. - Status post gastric bypass surgery. - Benign prostatic hyperplasia. - History of left intertrochanteric femur fracture, s/p short intramedullary nailing in 2019. History of Present Illness: Patient is a 62 y.o. male who presents 2-1/2 weeks out from left tibial plateau fracture. His injury occurred when he fell directly onto the left knee on 06/21/2022. He was seen at an outside hospital where radiographs were read as normal, and he was referred for outpatientfollow up. His x-rays were concerning for tibial tubercle fracture, and at our last visit a CT scan revealed a nondisplaced medial tibial plateau fracture with extension to the tibial tubercle. We discussed treatment options and ultimately planned to proceed with non-operative management. He was to remain nonweightbearing on the left leg, and he was to work on range of motion exercises. Since that time, he called our clinic due to worsening pain at the knee down to the lower leg after an episode in which he twisted the leg getting off the toilet. He was also complaining of calf pain so an order wasplaced to obtain a doppler ultrasound. However, this was never done due to inability to obtain transportation. He also noted a wound at the calf. The patient is accompanied today by his . They report that he continues to have severe pain diffusely about the knee and proximal leg. This was made much worse after the recent episode when he twisted the leg getting off the toilet. Said if it were not for his catching him he would have likely falling completely to the ground. It has been very difficult for him to maintain his nonweightbearing precautions. He is still very eager to be able to return to work as soon as he can. He is not necessarily desiring surgery at this point but would like to know if there is anything else we can do to help with pain and mobilization such as a splint or brace. 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 Appears older than stated age. Psychiatric: Patient's affect is pleasant and appropriate. Patient is cooperative with exam. HEENT: Hearing is intact to spoken word, extraocular movements intact. Respiratory: Breathing is unlabored, regular respirations. Examination of the patient's left lower extremity demonstrates slightly increased swelling at the proximal tibia in comparison to his last visit. The skin still does slightly wrinkle. The superficial wound at his tibial tubercle is healing appropriately without any concern for infection. Unchanged venous stasis changes from the mid cadena distally. Palpation: Quite tender to palpation diffusely about the anterior tibia. No tenderness more proximally at the distal thigh. ROM: Knee range of motion somewhat improved compared to his last visit. Able to range from 20-30 degrees shy of full extension to approximately 90?? of flexion. Sensory: SILT to light touch about the knee and thigh, baseline neuropathy but SILT in SPN, DNP, tibial, sural, and saphenous distributions. Vascular: Foot warm, with vascular changes Motor: Fires EHL/FHL/Gastroc/Tib Anterior. Imaging: Radiographs obtained of the left knee obtained today are personally reviewed, which demonstrate stable alignment of his fracture. However, the AP view is not the best quality so exact comparison is a bit difficult. Assessment: Patient is a 62 y.o. male 2-1/2 weeks out from a mechanical ground level fall, sustaining a left medial tibial plateau fracture involving the tibial tubercle. He is now 9 months status postORIF left supracondylar distal femur fracture. Today he has stable alignment of his tibial plateau fracture but still having significant pain and difficulty mobilizing at home. Plan: I had a lengthy conversation with the patient and his about options at this point. The good news is that today's radiographs show stable alignment of his fracture so I do not believe that it is any new displacement or issue at the fracture site that is causing his increased pain. While a surgery would likely eliminate the risk of fracture displacement and potentially allow us to more confidentlylet him progress his weight-bearing, I can not promise that it would improve his pain and this seemsto be the biggest issue at the present time. Additionally, the skin changes lower on his leg, which include a new pressure sore, put him at higher risk for infection or wound healing issues. For these r easons I still feel that it would be best to avoid surgery if possible. The patient and his do seem to be in agreement with this. I think he would be very reasonable to try a hinged knee brace to see if this could offer him some stability and improve his pain. Even with the brace on, I do not think we can let him fully weightbearon this leg but if he does need to place some pressure on the leg to help with balance our mobilization I am okay with this. Certainly he will need to keep a close eye on his skin to ensure that we do not develop any new pressure sores from the brace straps. He and his voiced understanding and will plan to monitor his skin closely. Finally, I am okay with prescribing a short course of opioid pain medication for the patient to helpget him over the worst of this pain. It sounds like Tylenol with codeine has worked well for him in the past. However, he currently does not have any ability to get to a pharmacy to hop picker a medication (a medical transport van brought him here today and will not stop at the pharmacy on the return). Therefore he will continue with his prior pain control regimen which was primarily [id number] medication, ice, and elevation. If he does figure out a way to hop picker medication at a pharmacy and would like to try the Tylenol No. 3 then he will contact our office such that I can send in this prescription. We will tentatively plan for follow-up in approximately 4 weeks but the patient will keep us posted on his progress and we can always see him back or have a virtual visit prior to that point if necessary. 1. Weight bearing: Toe-touch weight-bearing right lower extremity 2. Okay for knee range of motion as tolerated. 3. Hinged knee brace was provided today with instructions on proper brace wear and how to check for skin issues beneath the brace. This can remain unlocked. His plan is to wear this whenever he is up and around but otherwise remove it at rest, for sleep, and for hygiene. 4. Hydrofera Blue dressing applied to the small pressure sore on the posterior aspect of his calf. He was provided with some supplies such that he can change this at home. They will plan to keep this wrapped in an Felix wrap which will also help decrease the chance of further pressure sores. Follow-Up: in 4 weeks, checking x-rays AP/Lat left knee The patient is in agreement with today's plan and has no further questions. Speech-recognition software was utilized in the writing of this note and therefore the note may contain unintended word substitutions. Delgado Gottlieb MD Tomography Technologist [facility] Department of Orthopaedic Surgery [facility] documented in this encounter Plan of Treatment Upcoming Encounters Date Type Specialty Care Team Description 08/04/2022 Appointment Orthopedics Delgado Gottlieb MD [address] [place] [phone] (Gavi presley) 10/08/2022 Appointment Orthopedics Delgado Gottlieb MD [address] [place] [phone] (Gavi presley) 05/27/2023 Appointment Chemo Therapy/Infusion Services documented as of this encounter Results XR Knee Lt 2 Views (07/07/2022 12:47 PM CDT) Anatomical Region Laterality Modality Lower Extremity, Knee Computed Radiograp hy Specimen (Source) Anatomical Collection Method Collection Time Re ceived Time Location / / Volume Laterality 07/07/2022 12:47 PM CDT Narrative 07/07/2022 3:21 PM CDT EXAM: XR KNEE LT 2 VIEWS [facility]ATION: [facility] DATE/TIME: 07/07/2022 12:47 PM INDICATION: Left [...] is overlying soft tissue swelling. Procedure Note Julsisa Mendes MD - 07/07/2022 EXAM: XR KNEE LT 2 VIEWS LOCATION: [facility] 435 DATE/TIME: 07/07/2022 12:47 PM INDICATION: Left [...] healing, unspecified fracture morphology, subsequent encounte r - Primary Closed fracture of distal end of left fe mur with routine healing, unspecified fracture morphology, subsequent encounte r documented in this encounter Care Teams General Ii Farmworker Relationship Specialty Start Date End Date Cintia Cobb MD PCP - General Family Practice 09/30/21 documented as of this encounter
--- OUTSIDE RECORDS SUMMARY | 2022-07-29 11:05 | XMS_ITS | Encounter Summary ---
:1960 Author Organization [facility] Address [address], [place] [address] Care Team Providers Name Role Phone Cintia Cobb MD Primary Care Provider [phone] Reason for Visit Reason Comments QUESTIONS, GENERAL Encounter Details Date Type Department Care Team Description 06/16/2022 Telephone [facility] Delgado Gottlieb MD QUESTIONS, GENERAL Orthopedics Clinic [address] [place] [address] [place] [address] [phone] Social History Tobacco Use Types Packs/Day Years [...] encounter Nursing Notes Rosetta Ye RN - 06/23/2022 9:24 AM CDT Information below has been reviewed with Dr Gottlieb. He is wanting images to be pushed to PACS to review. He would be able to see patient on Thursday. Called and spoke with Xiao at [facility] and requested images be pushed to PACS. Patient called and notified of the information from Dr Gottlieb. He was transferred through to schedule. Rosetta Ye RN 06/23/2022, 10:05 AM Rosetta Ye RN - 06/23/2022 9:06 AM CDT Patient is calling back stating I think I broke my leg. He states that he fell Thursday morning at7:30. He states he felt and heard something snap. He states he landed on his knee cap. He states he was brought by ambulance to [facility] and they did imaging, but did not see any new fracture. He states hecannot put weight on his left leg. He cannot lift his leg. He states there is swelling from the lower thigh to half way down the cadena. He states he is having pain all around his knee. He has been icingand elevating, but it remains swollen. He states he has no one to drive him to clinic to come in to be evaluated. Rosetta Ye RN 06/23/2022, 9:13 AM Rosetta Ye RN - 06/20/2022 11:53 AM CDT Left message to return call on home phone. The mobile is not available at this time. Rosetta Ye RN 06/20/2022, 11:54 AM Rosetta Ye RN - 06/19/2022 3:07 PM CDT TR at [phone] and follow the prompt for [facility] and ask to speak with one of the nurses. Rosetta Ye RN 06/19/2022, 3:07 PM Delgado Gottlibe MD - 06/19/2022 2:29 PM CDT Sorry to hear that Ed has been struggling so much with pain. First of all, it sounds like he may be overdoing it. 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 It may just need some more time but honestly he may never be able to get back to doing that level of activity without pain. Therefore, my first suggestion would be that he try to back off on his activity level. As for the medication, I think a muscle relaxant medication sounds like a good idea. It looks like the other provider prescribed 60 tablets of cyclobenzaprine with a refill so that should last him a while. I am happy to refill this or another muscle relaxant when this prescription is gone but it should last for two months according to the dosing instructions. Finally, it does sound like we will need to get a CT at some point but if now is not a good time to perform a screw removal if it's needed then I would say we should just hold off on getting the CT. Wecan order this after the next visit or he can call us if something changes with his life situation that he would be able to undergo a surgery if that is what we recommend. Thanks. Rosetta Ye RN - 06/17/2022 3:48 PM CDT I was able to speak with Ed regarding his knee pain. He states that his left knee is swollen and he is in real bad pain. He states It makes it hard for me to walk. He states the pain goes up through the muscle to the hip. When he was asked to rate his pain 1-10, he states I don't believe in that stupid pain scale. Sometimes my pain is a thousand when I got pain. I either got it or I don't. Hestates he cannot describe the pain, but he has been having pain everyday for the last 2-3 days all the time. 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 He states he starts his day at 1 in the morning and sometimes doesn't get home until 9-10 in the evening 7 days a we ek. He states the swelling does go down overnight when he elevates. He states now is not a good timefor any surgery if a screw does need to be removed. Wondering if he could get a muscle relaxer so that when he is out of the other, he could use this one. He was just prescribed cyclobenzaprine on Thursday by a different provider and was informed by me earlier that he should only be getting it from one provider. See previous note. He is requesting to ask anyway. I did review the importance of icing andelevating to help keep the swelling down and the pressure off the nerves. He verbalized understanding. Please advise if CT should be done sooner than 6 month follow up and if a fill of a different muscle relaxer is appropriate. Thank you. Rosetta Ye RN 06/17/2022, 4:13 PM Rosetta Ye RN - 06/17/2022 8:46 AM CDT Patient returned my call and is stating that he needs a refill of the muscle relaxer. He was informed that it was prescribed for him on 06/13/2022 by Freddy Delgado and has a refill on it. He states that he wants a refill from Dr Gottlieb too, that way he won't run out of the medication. He was informed that he has a refill on it and he cannot be getting it from 2 different providers. He became upset with this information and states it don't matter what's going on with my knee then. My knee is just killing me. He hung up the phone. Rosetta Ye RN 06/17/2022, 9:11 AM TR at [phone] and follow the prompt for [facility] and ask to speak with one of the nurses. Rosetta Ye RN 06/17/2022, 9:19 AM Rosetta Lee RN - 06/17/2022 8:26 AM CDT LMTRC at [phone] and follow the prompt for [facility] and ask to speak with one of the nurses. Rosetta Ye RN 06/17/2022, 8:27 AM Britany Lopez - 06/16/2022 9:22 AM CDT Patient called requesting to speak to Rosetta, he won't give any other information, or why he is calling just requests to speak to Rosetat only. Please contact patient to advise. Britany Lopez 06/16/2022, 9:24 AM documented in this encounter Plan of Treatment Upcoming Encounters Date Type Specialty Care Team Description 08/04/2022 Appointment Orthopedics Delgado Gottlieb MD [address] [place] [phone] (Wo rk) 10/08/2022 Appointment Orthopedics Delgado Gottlieb MD [address] [place] [phone] (Wo rk) 05/27/2023 Appointment Chemo Therapy/Infusion Services documented as of this encounter Visit Diagnoses Not on filedocumented in this encounter Care Teams Felt Finisher Relationship Specialty Start Date End Date Cintia Cobb MD PCP - General Family Practice 09/30/21 documented as of this encounter
--- OUTSIDE RECORDS SUMMARY | 2022-07-29 11:05 | XMS_ITS | Encounter Summary ---
:1960 Author Organization [facility] Address [address] [place] [address] Care Team Providers Name Role Phone Cintia Cobb MD Primary Care Provider [phone] Reason for Visit Procedure/Equipment (Routine) - Incomplete Specialty Diagnoses / Procedures Referred By Contact Refer red To Contact Diagnoses Closed nondisplaced fracture of left tibial plateau, initial encounter Closed fracture of distal end of left femur with routine healing, unspecified fracture morphology, subsequent encounter Delgado Gottlieb MD Procedures CT Knee Lt WO IV Cont [address] [place] [address] Referral ID Status Reason Start Date Expiration Date Visits V isits Requested Authorized [id number] Incomplete 06/25/2022 09/24/2023 1 1 Encounter Details Date Type Department Care Team Description 06/25/2022 [facility] Acute pain of left knee; Procedure [facility] Donnell Murray MD Closed fracture of distal end of left fe mur with routine healing, unspecified fracture morphology, subsequent encounter Radiology [address] [place] [address] [place], [place] [phone] Social History Tobacco Use Types Packs/Day Years [...] 08/04/2022 Appointment Orthopedics Delgado Gottlieb MD [address] [place], [place] [phone] (Wo rk) 10/08/2022 Appointment Orthopedics Delgado Gottlieb MD [address] [place], [place] [phone] (Wo rk) 05/27/2023 Appointment Chemo Therapy/Infusion Services documented as of this encounter Procedures Procedure Name Priority Date/Time Associated Diagnosis Comme nts CT KNEE LT WO IV STAT 06/25/2022 11:21 AM Acute pain of lef t Results for this CONT CDT knee procedure are in Closed fracture of the resul ts distal end of left section. femur with routine healing, unspecified fracture morphology, subsequent encounter documented in this encounter Results CT Knee Lt WO IV Cont (06/25/2022 11:21 AM CDT) Anatomical Region Laterality Modality Lower Extremity, Knee, Leg, Skeletal, Thigh Computed Tomography Specimen (Source) Anatomical Collection Method Collection Time Re ceived Time Location / / Volume Laterality 06/25/2022 11:21 AM CDT Narrative 06/25/2022 1:16 PM CDT EXAM: CT KNEE LT WO IV CONT LOCATION: [facility] DATE/TIME: 06/25/2022 11:21 AM INDICATION: Tibial tubercle proximal tib ia fracture. COMPARISON: Knee radiographic exam 06/21. TECHNIQUE: Noncontrast. Axial, sagittal and coronal thin-section reconstruction. Dose reduction techniques were used. FINDINGS: BONES: -Mildly displaced avulsive fracture from the tibial tubercle along the anterior proximal left tibia. Fracture line extension into the medial metaphyseal proximal tibia with fracture line extension into the medial aspect of the lateral tibial plateau articular surface. No significant articular depression or incongruity at the lateral tibial plateau articular surface. Profound diffuse bone demineralizat ion. No definitive proximal fibula fract ure. Hardware partially seen on the straddle buggy operator images in the distal femur from lateral plate and screw fixation hardware as well as an intramedullary nail. No concerning bone lesion. SOFT TISSUES: -Anterior pretibial and proximal leg sof t tissue swelling. Arterial calcification. No drainable fluid collection. No evidence for patellar tendon tear. IMPRESSION: 1. ??Mildly displaced avulsive fracture tibial tubercle anterior proximal left tibia. 2. ??Fracture line extension into the me dial metaphyseal proximal left tibia and into the medial aspect of the lateral tibial plateau articular surface. 3. ??Proximal left leg soft tissue swell ing. 4. ??Diffuse bone demineralization. Procedure Note Scott Rees MD - 06/25/2022Formatti ng of this note might be different from the original. EXAM: CT KNEE LT WO IV CONT LOCATION: [facility] DATE/TIME: 06/25/2022 11:21 AM INDICATION: Tibial tubercle proximal tib ia fracture. COMPARISON: Knee radiographic exam 06/21. TECHNIQUE: Noncontrast. Axial, sagittal and coronal thin-section reconstruction. Dose reduction techniques were used. FINDINGS: BONES: -Mildly displaced avulsive fracture from the tibial tubercle along the anterior proximal left tibia. Fracture line extension into the medial metaphyseal proximal tibia with fracture line extension into the medial aspect of the lateral tibial plateau art icular surface. No significant articular depression or incongruity at the lateral tibial plateau articular surface. Profound diffuse bone demineralization. No definitive proximal fibula fracture. Hardware parti ally seen on the straddle buggy operator images in the distal femur from lateral plate and screw fixation hardware as well as an intramedullary nail. No concerning bone lesion. SOFT TISSUES: -Anterior pretibial and proximal leg sof t tissue swelling. Arterial calcification. No drainable fluid collection. No evidence for patellar tendon tear. IMPRESSION: 1. Mildly displaced avulsive fracture ti bial tubercle anterior proximal left tibia. 2. Fracture line extension into the medi al metaphyseal proximal left tibia and into the medial aspect of the lateral tibial plateau articular surface. 3. Proximal left leg soft tissue swellin g. 4. Diffuse bone demineralization. Delgado Gottlieb MD RAD CT documented in this encounter Visit Diagnoses Diagnosis Acute pain of left knee Closed fracture of distal end of left fe mur with routine healing, unspecified fracture morphology, subsequent encounte r documented in this encounter Care Teams Non Destructive Testing Supervisor Relationship Specialty Start Date End Date Cintia Cobb MD PCP - General Family Practice 09/30/21 documented as of this encounter
--- OUTSIDE RECORDS SUMMARY | 2022-07-29 11:05 | XMS_ITS | Encounter Summary ---
:1960 Author Organization [facility] Address [address] [place] [address] Care Team Providers Name Role Phone Cintia Cobb MD Primary Care Provider [phone] Encounter Details Date Type Department Care Team Description 06/23/2022 Telephone [facility] [address] Delgado Gottlieb MD Orthopedics Clinic [address] [place] [address]. [place] [address] [place] [address] [phone] Social History Tobacco Use Types Packs/Day Years [...] Description 08/04/2022 Appointment Orthopedics Delgado Gottlieb MD [address] [place] [phone] (Gavi presley) 10/08/2022 Appointment Orthopedics Delgado Gottlieb MD [address] [place] [phone] (Wo rk) 05/27/2023 Appointment Chemo Therapy/Infusion Services documented as of this encounter Visit Diagnoses Not on filedocumented in this encounter Care Teams Skin Washer Relationship Specialty Start Date End Date Cintia Cobb MD PCP - General Family Practice 09/30/21 documented as of this encounter
--- OUTSIDE RECORDS SUMMARY | 2022-07-29 11:05 | XMS_ITS | Encounter Summary ---
:1960 Author Organization [facility] Address [address] [place] [address] Care Team Providers Name Role Phone Cintia Cobb MD Primary Care Provider [phone] Reason for Visit Reason Comments Infusion Infusion Therapy Plan (Routine) - Authorized Specialty Diagnoses / Procedures Referred By Contact Refer red To Contact Chemo Diagnoses Closed fracture of distal end of left femur with routine healing, unspecified fracture morphology, subsequent encounter Age-related osteoporosis with current pathological fracture, unspecified site, initial encounter for fracture Delmer Valladares, [facility] Infusion Therapy/Infusion S72.402D (ICD-10-CM) - Close d fracture of distal end of left femur with routine healing, unspecified fracture morphology, subsequent encounter M80.00XA (ICD-10-CM) - Age-related osteoporosis with current [facility] pathological fracture, unspe cified site, initial encounter for fracture [address] [facility] [address] [place] Procedures ZOLEDRONIC ACID 1[place] [address] [place] [address] Phone: Fax: Referral ID Status Reason Start Date Expiration Date Visits V isits Requested Authorized [id number] Authorized 01/08/2022 01/20/2023 999 999 Encounter Details Date Type Department Care Team Description 05/27/2022 Hospital Encounter [facility] Domenica Mcallister sed fracture of Center JACQUELIN Mendez distal end of left [address] [place] [address] [facility] femur w [facility] routine [address] healing, [place], [place] unspecif ied [id number] fracture [phone] morphology, (Work) subsequent encounter (Primary Dx) Social History Tobacco Use Types [...] Sign Reading Time Taken Comments Blood Pressure 127/72 05/27/2022 9:09 AM CDT Pulse 67 05/27/2022 9:09 AM CDT Temperature 37.1 ??C (98.7 ??F) 05/27/2022 8:40 AM CDT Respiratory Rate - - Oxygen Saturation 100% 05/27/2022 8:40 AM CDT Inhaled Oxygen Concentration - - Weight - - Height - - Body Mass Index - - documented in this encounter Medications at Time of Discharge Medication Sig Dispensed Refills Start Date End Date acetaminophen (TYLENOL) TAKE 2 TABLETS BY 180 Tablet 2 10/0210/02/2022 500 MG MOUTH THREE TIMES A tabletIndications: Pain DAY. MAXIMUM ACETAMINOPHEN DOSE IS 4000 MG IN 24 HOURS INDICATIONS: FEVER, PAIN allopurinol (ZYLOPRIM) 1 10/28/2016 300 MG tablet B-D 3CC LUER-ARIES SYR USE DIRECTED FOR 12 2017 25GX5/8 25G X 5/8 3 CYANOCOBALAMIN ML INJECTION Calcium Carbonate (AKA Chew and swallow 2 0 OS-JESSE) 1250 (500 Ca) Tablets by mouth. MG chewable tablet diazePAM (VALIUM) 2 MG Take 1 Tablet (2 mg) 20 Tablet 0 tablet by mouth every 6 hours as needed for Muscle Spasms. finasteride (PROSCAR) 5 Take 5 mg by mouth 0 11/05 MG tablet daily. furosemide (LASIX) 40 3 10/28/2016 MG tablet omeprazole (PRILOSEC) Take 20 mg by mouth 11 05/28 20 MG capsule daily. oxyCODONE (ROXICODONE) Take 1-2 Tablets 25 Tablet 0 022 5 MG immediate release (5-10 mg) by mouth tablet every 4 hours as needed for Pain. Sennosides (SENOKOT OR) 0 tamsulosin (FLOMAX) 0.4 Take 0.8 mg by mouth 0 MG CAPS capsule daily. cyclobenzaprine Take 1 Tablet (10 mg) 30 Tablet 1 2 06/13/2022 (FLEXERIL) 10 MG tablet by mouth two times daily as needed. documented as of this encounter Progress Notes Ellen Hassan RN - 05/27/2022 8:00 AM CDT Dx: Closed fracture of left distal femur ([facility]C) Provider: Blaine Is this the first dose: Yes History of previous infusion reactions? N/A Premedications: No Patient is taking Ca and Vit D. Denies recent major dental work. Education completed on Reclast. Denies any questions at this time. Patient arrived for Reclast infusion. Vital signs stable. No signs of infection. Tolerated infusion well. Discharged in stable condition. Will return to clinic for next infusion as scheduled 05/27/2023. Ellen Hassan RN 9:33 AM 05/27/2022 documented in this encounter Plan of Treatment Upcoming Encounters Date Type Specialty Care Team Description 08/04/2022 Appointment Orthopedics Dlegado Gottlieb MD [address] [place], [place] [address] (Gavi presley) 10/08/2022 Appointment Orthopedics Delgado Gottlieb MD [address] [place], [place] [address] (Gavi presley) 05/27/2023 Appointment Chemo Therapy/Infusion Services documented as of this encounter Visit Diagnoses Diagnosis Closed fracture of distal end of left fe mur with routine healing, unspecified fracture morphology, subsequent encounte r - Primary documented in this encounter Administered Medications Inactive Administered Medications - up to 3 most recent administrations Medication Order MAR Action Action Date Dose Rate Site sodium chloride 0.9% injection Given 05/27/2022 9:09 AM CDT 10 m L 10-60 mL 10-60 mL, Intravenous, PRN BEFORE&AFTER MEDICATIONS OR LAB DRAW, Line Patency, Starting on Thu05/27/22 at 0839, Until Thu05/27/22 at 1137, For 1 day Given 05/27/2022 8:43 AM CDT 10 mL zoledronic acid (RECLAST) infusion 5 mg Started 05/27/2022 8:46 AM CDT 5 mg 5 mg, Intravenous, Administer over 20 Minutes, ONCE, On Thu05/27/22 at 0900, For 1 dose, Hold if patients creatinine clearance is less than 35 mL/minute. Preparation: Single glove, gown; face mask optional Administration: Single glove documented in this encounter Care Teams Ship Cleaner Relationship Specialty Start Date End Date Cintia Cobb MD PCP - General Family Practice 09/30/21 documented as of this encounter
--- OUTSIDE RECORDS SUMMARY | 2022-07-29 11:05 | XMS_ITS | Clinical Summary ---
:1960 Author Organization [employer] [place] [address] Care Team Providers Name Role Phone Meghna Fox DO Primary Care Provider Allergies Active Allergy Reactions Severity Noted Date Comments Ciprofloxacin Other - Describe In High 12/28/2009 Michael boswell Comment Field, Edema, Genita l swelling *Unknown - Follow up needed Haemophilus Influenzae GI Upset, Nausea Only 7 Diarrhea Diarrhea Diarrhea Influenza A (H5n1) Virus Diarrhea High 08/13/2021 Vaccine Monoval (18 Yr +) Medications Medication Sig Dispensed Refills Start Date End Date Status allopurinoL allopurinol 300 mg 0 Active (ZYLOPRIM) 300 mg tablet tablet omeprazole (PRILOSEC) omeprazole 20 mg 0 Active 20 mg Delayed-Release capsule,delayed capsule release traZODone (DESYREL) TAKE 1-2 TABLETS 0 07/15/2021 Active 50 mg tablet (50-100 MG TOTAL) BY MOUTH AT BEDTIME NEEDED FOR SLEEP. tamsulosin (FLOMAX) tamsulosin 0.4 mg 0 Active 0.4 mg capsule capsule finasteride (PROSCAR) Take 5 mg by mouth 0 2 Active 5 mg tablet once daily. cyclobenzaprine TAKE 1 TABLET (10 0 05/14/2022 Active (FLEXERIL) 10 mg MG) BY MOUTH TWO tablet TIMES DAILY NEEDED. methocarbamoL TAKE 1 TABLET (500 0 01/24/2022 Active (ROBAXIN) 500 mg MG) BY MOUTH EVERY 6 tablet HOURS NEEDED. INDICATIONS: MUSCULOSKELETAL PAIN ferrous sulfate, 65 Take 1 Tablet (325 90 Tablet 0 06/03/2022 Active mg elemental, mg) by mouth once tabletIndications: daily with a meal. Anemia of unknown etiology Active Problems Problem Noted Date Age-related osteoporosis without current pathological fracture 06/05/2022 Elevated blood pressure reading without diagnosis of h ypertension 06/05/2022 Benign prostatic hyperplasia (BPH) with post-void drib crow 06/05/2022 Anemia of unknown etiology 06/05/2022 Encounters Date Type Specialty Care Team Description 06/09/2022 Telephone Meghna Fox Pricilla, DO Concern s (Constipation) 06/05/2022 Telephone Meghna Fox Pricilla, DO Results 06/04/2022 Telephone Meghna Fox Pricilla, DO Results 06/03/2022 Office Visit Meghna Fox, DO Physica l (61 yr old male ); Establish Care 06/03/2022 Travel from Last 3 Months Immunizations Name Administration Dates Next Due DT (Age < 7 years) 12/05/2002 Influenza, IIV3 (Age >=3 years) 07/13/2008, 08/09/2007, 07/10 Pneumococcal Poly,23-Valent (Pneumovax) 12/05/2002 Tdap 02/19/2012 Family History Medical History Relation Name Comments Hypertension Father Diabetes Maternal Aunt Diabetes Maternal Grandmother Diabetes Mother Hypertension Mother Good Health Paternal Aunt Hypertension Paternal Grandfather Relation Name Status Comments Father Maternal Aunt Alive Maternal Grandmother Mother Paternal Aunt Alive Paternal Grandfather Social History Tobacco Use Types Packs/Day Years Used Date Never Smoker Smokeless Tobacco: Never Used Tobacco Cessation: Counseling Given: Yes Alcohol Use Standard Drinks/Week Comments Never 0 (1 standard drink = 0.6 oz pure alcoho l) Sex Assigned at Date Recorded Not on file Obstetrics History Last Filed Vital Signs Vital Sign Reading Time Taken Comments Blood Pressure 153/68 06/03/2022 7:58 AM CDT Pulse 64 06/03/2022 7:58 AM CDT Temperature - - Respiratory Rate - - Oxygen Saturation 99% 06/03/2022 7:58 AM CDT Inhaled Oxygen Concentration - - Weight - - Height 177.5 cm (5' 9.88) 06/03/2022 7:58 AM CDT Body Mass Index - - Plan of Treatment Upcoming Encounters Date Type Specialty Care Team Description 08/11/2022 Office Visit Daniella Estrada, SAMIRA [address] [place], [place] [address] (Wo rk) Health Maintenance Due Date Last Done Comments COVID-19 vaccine series (#1) 1960 Depression screening for age 12+ 1970 HIV for age 15-65 1973 BMI (ht and wt on same day) for age 1006/22/1976 18+ Hepatitis C screening for age 18-79 1976 Colonoscopy through age 75 2003 Zoster (shingles) series for age 50+ 2008 (1 of 2) Tetanus booster 02/18/2022 02/19/2012 Influenza for age 50-64 05/08/2022 07/13/2008, 08/09/2007, 08/06/2006 Lipids for age 45-75 06/03/2027 06/03/2022 Tdap Completed 02/19/2012 Procedures Procedure Name Priority Date/Time Associated Diagnosis Comme nts PLATELET ESTIMATE Routine 06/03/2022 10:08 History of iron Res ults for this AM CDT deficiency anemia procedure are in the results section. RED CELL MORPHOLOGY Routine 06/03/2022 10:08 History of iron R esults for this AM CDT deficiency anemia procedure are in the results section. BASIC METABOLIC Routine 06/03/2022 10:08 Medication monitoring Results for this PANEL AM CDT encounter procedure are i n the results section. PSA TOTAL Routine 06/03/2022 10:08 Benign prostatic Results for this (DIAGNOSTIC) AM CDT hyperplasia (BPH) procedure are in with post-void the results dribbling section. CBC W PLT NO DIFF Routine 06/03/2022 10:08 History of iron Res ults for this AM CDT deficiency anemia procedure are in the results section. LIPID PANEL Routine 06/03/2022 10:08 Screening cholesterol Re sults for this AM CDT level procedure are i n the results section. URINE CULTURE Add On 06/03/2022 10:05 UTI (urinary tract Resu lts for this AM CDT infection), procedure are i n uncomplicated the results section. URINALYSIS Routine 06/03/2022 10:05 Benign prostatic Results for this MICROSCOPIC AM CDT hyperplasia (BPH) procedure are in with post-void the results dribbling section. Dysuria UA W/ SEDIMENT EXAM Routine 06/03/2022 10:05 Benign prostatic Results for this REFLEXED PER AM CDT hyperplasia (BPH) procedure are in CRITERIA with post-void the results dribbling section. Dysuria from Last 3 Months Results (ABNORMAL) RED CELL MORPHOLOGY (06/03/2022 10:08 AM CDT) [facility] Method Time Signature ELLIPTOCYTES Few 06/03/2022 [facility] 11:22 AM [facility] POLYCHROMASIA Slight 06/03/2022 [facility] 11:22 AM [facility] RBC COMMENT Present (A) RBC 06/03/2022 [facility] morphology 11:22 AM [facility] normal, RBC morphology within normal limits for newborns. Specimen Anatomical Collection Method Collection Time Receive d Time (Source) Location / / Volume Laterality [facility] / 06/03/2022 10:08 022 Unknown Unknown AM CDT 10:11 AM CDT Meghna Fox HEMATOLOGY Performing Organization Address City/[facility]/ZIP Code Phon e Number [facility] [address] [place] [address] PLATELET ESTIMATE (06/03/2022 10:08 AM CDT) [facility] Method Time Signature PLATELET Adequate Adequate, No 06/03/2022 [facility] ESTIMATE estimate 11:22 AM [facility] Specimen Anatomical Collection Method Collection Time Receive d Time (Source) Location / / Volume Laterality Blood BLOOD SPECIMEN / [facility] / 06/03/2022 10:08 022 Unknown Unknown AM CDT 10:11 AM CDT Meghna Blancaalvarado HEMATOLOGY Performing Organization Address City/State/ZIP Code Phon e Number [facility] [address] [place] [address] (ABNORMAL) CBC W PLT NO DIFF (06/03/2022 10:08 AM CDT) [facility] Method Time Signature WHITE BLOOD 6.2 4.5 - 11.0 06/03/2022 [facility] COUNT thou/cu mm 11:22 AM [facility] RED BLOOD COUNT 3.57 (L) 4.30 - 06/03/2022 [facility] 5.90 11:22 AM CDT [place] mil/cu mm CLINIC HEMOGLOBIN 7.8 (L) 13.5 - 06/03/2022 [facility] 17.5 g/dL 11:22 AM T [facility] HEMATOCRIT 27.2 (L) 37.0 - 06/03/2022 [facility] 53.0 % 11:22 AM T [facility] MCV 76 (L) 80 - 100 06/03/2022 [facility] fL 11:22 AM CDT [facility] MCH 21.8 (L) 26.0 - 06/03/2022 [facility] 34.0 pg 11:22 AM T [facility] MCHC 28.7 (L) 32.0 - 06/03/2022 [facility] 36.0 g/dL 11:22 AM T [facility] RDW 19.6 (H) 11.5 - 06/03/2022 [facility] 15.5 % 11:22 AM T [facility] PLATELET COUNT 198 140 - 440 06/03/2022 [facility] thou/cu mm 11:22 AM T [facility] MPV 10.5 6.5 - 11.0 06/03/2022 [facility] 11:22 AM CDT [facility] Specimen Anatomical Collection Method Collection Time Receive d Time (Source) Location / / Volume Laterality Blood BLOOD SPECIMEN / [facility] / 06/03/2022 10:08 022 Unknown Unknown AM CDT 10:11 AM CDT Meghna Fox DO HEMATOLOGY Performing Organization Address City/State/ZIP Code Phon e Number [facility] [address] [place] [address] PSA TOTAL (DIAGNOSTIC) (06/03/2022 10:08 AM CDT) P athologist Signature PSA TOTAL 0.92 <4.00 06/04/2022 [facility] (DIAGNOSTIC) ng/mL 6:29 AM CDT LABORATORY-[facility] Specimen Anatomical Collection Method Collection Time Receive d Time (Source) Location / / Volume Laterality Blood BLOOD SPECIMEN / [facility] / 06/03/2022 10:08 022 Unknown Unknown AM CDT 10:11 AM CDT Narrative [facility] LABORATORY-[facility]EN[facility]AL LABORAT ORReagan - 06/04/2022 6:29 AM CDT The percentage of Free PSA can be used to enhance the differentiation of prostate cancer from benign prostatic disease in subjects whose PSA levels are between 4.00 and 10.00 ng/mL. The % Free PSA will be reported only for PSA values between 4.00 and 10.00 ng/mL. The [employer] PSA assay is a Chem iluminescent Microparticle Immunoassay(CMIA). Assay values obtained with different assay methods cannot be used interchangeably due to differences in assay method s and reagent specificity. ? Meghna Fox DO CHEMISTRY Performing Organization Address City/State/ZIP Code Phon e Number [facility] [address] [place] [address] LABORATORY-CENTRAL 2000 LABORATORY LIPID PANEL (06/03/2022 10:08 AM CDT) [facility] Method Time Signature CHOLESTEROL,TOTAL 130 100 - 199 06/04/2022 [facility] mg/dL 6:08 AM CDT LABORATORY-[facility] TRIGLYCERIDES 79 <150 06/04/2022 [facility] mg/dL 6:08 AM CDT [facility] HDL CHOLESTEROL 53 >40 mg/dL 06/04/2022 [facility] 6:08 AM CDT LAB[facility]AT[facility] NON-HDL 77 <145 06/04/2022 [facility] CHOLESTEROL mg/dl 6:08 AM CDT [facility] CHOL/HDL RATIO 2.45 <4.50 06/04/2022 [facility] 6:08 AM CDT [facility] LDL CHOLESTEROL 61 <=130 06/04/2022 [facility] mg/dL 6:08 AM CDT [facility] VLDL CHOLESTEROL 16 <=30 06/04/2022 [facility] mg/dL 6:08 AM CDT LAB[facility] PROVIDER ORDERED RANDOM 06/04/2022 [facility] STATUS 6:08 AM CDT [facility] Specimen Anatomical Collection Method Collection Time Receive d Time (Source) Location / / Volume Laterality Blood BLOOD SPECIMEN / [facility] / 06/03/2022 10:08 09/27/2 022 Unknown Unknown AM CDT 10:11 AM CDT Meghna Fox DO CHEMISTRY Performing Organization Address City/State/ZIP Code Phon e Number [facility] [address] [place] [address] LABORATORY-CENTRAL 2000 LABORATORY (ABNORMAL) BASIC METABOLIC PANEL (06/03/2022 10:08 AM CDT) [facility] Time Signature SODIUM 136 135 - 145 06/04/2022 [facility] mmol/L 6:06 AM CDT LABORATORY-[facility] POTASSIUM 5.2 (H) 3.5 - 5.0 06/04/2022 [facility] mmol/L 6:06 AM CDT LAB[facility]AT[facility] CHLORIDE 108 98 - 110 06/04/2022 [facility] mmol/L 6:06 AM CDT [facility] CO2,TOTAL 20 (L) 21 - 31 06/04/2022 [facility] mmol/L 6:06 AM CDT [facility] ANION GAP 8 5 - 18 06/04/2022 [facility] 6:06 AM CDT [facility] GLUCOSE 111 (H) 65 - 100 06/04/2022 [facility] mg/dL 6:06 AM CDT LAB[facility] CALCIUM 8.1 (L) 8.5 - 10.5 06/04/2022 [facility] mg/dL 6:06 AM CDT LAB[facility] BUN 25 8 - 25 06/04/2022 [facility] mg/dL 6:06 AM CDT LAB[facility] CREATININE 0.97 0.72 - 06/04/2022 [facility] 1.25 mg/dL 6:06 AM CDT [facility] BUN/CREAT RATIO 26 (H) 10 - 20 06/04/2022 [facility] 6:06 AM CDT [facility] eGFR 88 (L) >90 06/04/2022 [facility] mL/min/1.7 6:06 AM CDT LABORATORY-ANNI 3m2 TRAL LABORATORY Comment: As of 2021, eGFR is calcu lated by the CKD-EPI creatinine equation without race adjustment. eGFR can be inf luenced by muscle mass, exercise, and diet. The reported eGFR is an estimation only and is only applicable if the renal function is stable. Specimen Anatomical Collection Method Collection Time Receive d Time (Source) Location / / Volume Laterality Blood BLOOD SPECIMEN / [facility] / 06/03/2022 10:08 022 Unknown Unknown AM CDT 10:11 AM CDT Meghna Fox DO CHEMISTRY Performing Organization Address City/State/ZIP Code Phon e Number [facility] [address] [place], [place] [address] [address] LABORATORY-CENTRAL [facility] LABORATORY (ABNORMAL) URINALYSIS MICROSCOPIC (06/03/2022 10:05 AM CDT) [facility] Method Time Signature RBC 0-2 0-2, None 06/03/2022 [facility] Seen /HPF 10:49 AM CDT [facility] WBC 26-50 (A) 0-2, 3-5, 06/03/2022 [facility] None Seen 10:49 AM CDT [place] [facility]IN[facility] BACTERIA Many (A) None 06/03/2022 [facility] Seen, 10:49 AM CDT [place] Rare, Few CLINIC Bacteria/ HPF EPITHELIAL None Seen None 06/03/2022 [facility] CELLS Seen, Few 10:49 AM CDT [place] Epi/HPF CLINIC Specimen Anatomical Collection Method Collection Time Receive d Time (Source) Location / / Volume Laterality Urine URINE SPECIMEN / Non-Blood / 06/03/2022 10:05 022 Unknown Unknown AM CDT 10:12 AM CDT Meghna Fox DO URINE Performing Organization Address City/State/ZIP Code Phon e Number [facility] [address] [place] [address] (ABNORMAL) URINE CULTURE (06/03/2022 10:05 AM CDT) [facility] Method Time Signature CULTURE RESULT (A) 06/06/2022 [facility] 6:38 AM CDT [facility] CULTURE >100,000 CFU/mL 06/06/2022 [facility] Escherichia 6:38 AM CDT LABORATORY-ANNI coli TRAL LABORATORY Specimen Anatomical Collection Method Collection Time Receive d Time (Source) Location / / Volume Laterality Urine URINE SPECIMEN / Non-Blood / 06/03/2022 10:05 022 Unknown Unknown AM CDT 10:12 AM CDT Organism Antibiotic Method Susceptibility Escherichia coli TRIMETHOPRIM/SULF <=1/19: S Escherichia coli AMPICILLIN >=32: R Escherichia coli CEFAZOLIN-UC <=4: S Comment: Cefazolin-UC interp retations are for therapy of uncomplicated UTIs due to E.coli, K.pneumoniae, or P.m irablis. Escherichia coli GENTAMICIN <=1: S Escherichia coli CEFTRIAXONE <=1: S Escherichia coli CEFTAZIDIME <=1: S Escherichia coli LEVOFLOXACIN 2: R Escherichia coli CIPROFLOXACIN 1: R Escherichia coli PIPERACILLIN/TAZO <=4: S Escherichia coli AMPICILLIN/SULBACTAM >=32: R Escherichia coli CEFEPIME <=1: S Escherichia coli TOBRAMYCIN <=1: S Escherichia coli MEROPENEM <=0.25: S Escherichia coli NITROFURANTOIN <=16: S Meghna Fox DO MICROBIOLOGY Performing Organization Address City/State/ZIP Code Phon e Number [facility] [address] [place] [address] LABORATORY-CENTRAL [facility] LABORATORY (ABNORMAL) UA W/ SEDIMENT EXAM REFLEXED PER CRITERIA (06/03/2022 10:05 AM CDT) [facility] Method Time Signature COLOR Yellow Yellow Color 06/03/2022 [facility] 10:48 AM [facility] CLARITY Clear Clear 06/03/2022 [facility] Clarity 10:48 AM [facility] SPECIFIC 1.025 1.010, 06/03/2022 [facility] GRAVITY,URINE 1.015, 10:48 AM [place] 1.020, 1.025 T CLINIC PH,URINE 5.5 6.0, 7.0, 06/03/2022 [facility] 8.0, 5.5, 10:48 AM [place] 6.5, 7.5, T CLINIC 8.5 UROBILINOGEN, Normal Normal EU/dl 06/03/2022 [facility] QUALITATIVE 10:48 AM [facility]IC PROTEIN, 100 (A) Negative 06/03/2022 [facility] URINE mg/dL 10:48 AM [facility] GLUCOSE, Negative Negative 06/03/2022 [facility] URINE mg/dL 10:48 AM [facility] KETONES,URINE Negative Negative 06/03/2022 [facility] mg/dL 10:48 AM [facility] BILIRUBIN,URI Negative Negative 06/03/2022 [facility] NE 10:48 AM [facility] OCCULT Negative Negative 06/03/2022 [facility] BLOOD,URINE 10:48 AM [facility] NITRITE Positive (A) Negative 06/03/2022 [facility] 10:48 AM [facility] LEUKOCYTE Trace (A) Negative 06/03/2022 [facility] ESTERASE 10:48 AM [facility] Specimen Anatomical Collection Method Collection Time Receive d Time (Source) Location / / Volume Laterality Urine URINE SPECIMEN / Non-Blood / 06/03/2022 10:05 022 Unknown Unknown AM CDT 10:12 AM CDT Meghna Fox DO URINE Performing Organization Address City/State/ZIP Code Phon e Number [facility] [address] [place] [address] from Last 3 Months Insurance Payer Benefit Plan / Subscriber ID Effective Dates Phone Addre ss Type Group [employer] [place] [employer] [id number] 2018-Present [address] [address] [place] [address] Care Teams Juvenile Justice Specialist Relationship Specialty Start Date End Date Meghna Fox DO PCP - General Family Practice 02/11/22 [address] [place] [address]
--- OUTSIDE RECORDS SUMMARY | 2022-07-29 11:05 | XMS_ITS | Encounter Summary ---
:1960 Author Organization [facility] Address [address] [place] [address] Care Team Providers Name Role Phone Cintia Cobb MD Primary Care Provider [phone] Reason for Referral Procedure/Equipment (Routine) - Incomplete Specialty Diagnoses / Procedures Referred By Contact Refer red To Contact Diagnoses Closed nondisplaced fracture of left tibial plateau, initial encounter Closed fracture of distal end of left femur with routine healing, unspecified fracture morphology, subsequent encounter Delgado Gottlieb MD Procedures CT Knee Lt WO IV Cont [address] [place] [address] Referral ID Status Reason Start Date Expiration Date Visits V isits Requested Authorized [id number] Incomplete 06/25/2022 09/24/2023 1 1 Reason for Visit Reason Comments Revisit Encounter Details Date Type Department Care Team Description 06/25/2022 Office Visit Specialty Center Delgado Gottlieb, Domenica sed nondisplaced fracture of left tibial plateau, initial encounter (Primary Dx); [facility] Closed fracture of distal end of left fe mur with routine healing, unspecified fracture morphology, subsequent encounter [facility] [address] [place] [address] [place], [place] [phone] [address] Social History Tobacco Use Types Packs/Day Years [...] as of this encounter Patient Instructions Patient InstructionsZenaida Nix, [facility] - 06/25/2022 11:00 AM CDT ORTHOPAEDICS DEPARTMENT PHONE NUMBER: [phone] Reason for today's visit: Follow up- ORIF Left supracondylar distal femur fracture, utilizing both plate and nail fixation DOS: 10/01/2021 Tests that you will need: None Prescribed Medications: None Supplies you will be leaving with: None Treatment plan: Weight Bearing Status until further notice: Non weight bearing Left lower extremity. Continue to ice and elevate to reduce swelling. Range of motion as tolerated. You can take over the counter pain medication. Follow up appointments: You will follow up with Dr. Delgado Gottlieb in 12 day(s). (July 07) X-Rays: You will have Left knee NWB X-Rays taken with your next Orthopaedics appointment. Please arrive 15 minutes early for your appointment. Reason for next Orthopaedics appointment: Follow up- ORIF Left supracondylar distal femur fracture, utilizing both plate and nail fixation DOS: 10/01/2021 Please stop at the check out desk to schedule a follow up appointment. Use this grid to write down your next appointment. DATE & TIME PROVIDER LOCATION APPT NOTES ( ) [facility]: [address] [place] [address] ( ) [facility]: [address] [place], [place] ( ) Other: Follow up- ORIF Left supracondylar distal femur fracture, utilizing both plate and nail fixation DOS: 10/01/2021 ( ) [facility]: [address] [place] [address] ( ) [facility] [address] [place], [place] ( ) Other: If you have any questions about your visit, your symptoms, your medication, your test results or it is not clear what your diagnosis or treatment plan is please contact us at [phone] or send us a secure message via [employer]. You may receive surveys via mail, e-mail or text regarding your visit and recovery. Your feedback isvery important to us. Please take a moment to complete them. If you would like to speak to someone specifically, you may contact the clinic at [phone] and your call will be directed to someone on our leadership team. Thank you for choosing [facility]. If you need to schedule an appointment, you may call our office at [phone]. We are open Thursday-Thursday 8 am - 5 pm. documented in this encounter Progress Notes Delgado Gottlieb MD - 06/25/2022 11:00 AM CDT Orthopaedic Postoperative Note DOI: 09/30/2021 NICOLETTE: slip and fall on ice, landing directly on the left knee Diagnoses: - Left supracondylar distal femur fracture. - Chronic microcytic anemia, (hemoglobin 5.8 on arrival). - Complete heart block, status post pacemaker. - Atrial flutter. - Type 2 diabetes mellitus with peripheral neuropathy. - Hypertension. - Status post gastric bypass surgery. Benign prostatic hyperplasia. History of left intertrochanteric femur fracture, s/p short intramedullary nailing in 2019. Date of Surgery: 10/01/2021 ORIF of left supracondylar distal femur fracture, utilizing both plate and nail fixation. History of Present Illness: Patient is a 62 y.o. male who presents 9 months from the above procedure. He has contacted our clinic on a few occasions regarding ongoing pain in the anterior distal thigh for which we had considered obtaining a CT scan to evaluate for prominent hardware. However, he called our clinic earlier this week due to inability to put weight on the left leg or lift the left leg after a fall directly onto the left knee on 06/21. He was seen at an outside hospital where radiographswere read as normal. He was discharged home with a plan for outpatient followup. On our review of these films there was concern for a tibial tubercle fracture. He reports that the injury occurred while attempting to get back into his truck when he lost balanceafter his foot caught on something, resulting in him falling directly onto he left knee. He was ableto brace himself some to decrease the impact of the fall. He was not able to bear weight after the fall. Prior to this fall he was mobilizing well, only using a cane as needed. He notes pain along the anterior aspect of the proximal tibia, unable to point to one exact location. He says the pain does not fit on any scale, its so bad. Pain radiates down to the level of the ankle. He denies new numbnessand tingling. He is not on any blood thinners. He denies any chest pain, SOB, fevers, chills, or night sweats. He denies new pain elsewhere since the fall, left thigh and hip feel at baseline. He is taking hydrocodone PRN for pain but feels it does not work well. He would like to get back to work as soon as able. 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 Appears older than stated age. Psychiatric: Patient's affect is pleasant and appropriate. Patient is cooperative with exam. HEENT: Hearing is intact to spoken word, extraocular movements intact. Respiratory: Breathing is unlabored, regular respirations. Examination of the patient's left lower extremity demonstrates some swelling about the knee, skin wrinkling is present, minimal ecchymosis, ~1 cm irregular border wound over the tibial tubercle, appears to be healing well, no drainage, unable to express any fluid, no surrounding erythema. Unchanged venous stasis changes over the leg from mid cadena distally. Palpation: TTP over anterior proximal tibia medial > lateral, no TTP about the foot or ankle, no TTP over distal femur. Compartments are soft and compressible. No significant knee effusion. Knee ROM: Very limited PROM secondary to pain, 60 degrees short of full extension to 80 degrees flexion (was able to straighten for CT, but took a lot of care to limit pain). AROM unable to be assesseddue to pain. Sensory: SILT to light touch about the knee and thigh, baseline neuropathy but SILT in SPN, DNP, tibial, sural, and saphenous distributions. Vascular: Foot warm, with vascular changes Motor: Fires EHL/FHL/Gastroc/Tib Anterior. Imaging: Radiographs obtained of the left knee on 06/21/2022 at [facility] in [place] are personally reviewed, which demonstrate cortical irregularities at the tibial tubercle and medial cortex of the proximaltibia, concerning for nondisplaced fracture. Prior distal femur fracture remains in excellent alignment with mature bony bridging and intact implants. CT scan of the left knee without contrast obtained today is personally reviewed, which demonstrates minimally/non-displaced medial plateau fracture, which extends proximally into the lateral articular surface just lateral to the lateral tibial spine, no articular step off. Tibial tubercle with fracture and bony defect, but overall alignment appears intact. No gas is visible to suggest open fracture. Assessment: Patient is a 62 y.o. male 9 months status post ORIF left supracondylar distal femur fracture, now with minimally/non-displaced medial tibial plateau fracture after a mechanical GLF. Plan: Patient has a relatively nondisplaced medial tibial plateau fracture after a ground-level fall. The wound over the anterior aspect of his knee appears to be healing well without signs of infection, lowconcern for open fracture given exam and CT images. 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 His left leg is important for driving, as this is his clutch operating limb. Unfortunately, there is no immediate OR availability, so soonest availability would be next Thursday. After further discussion regarding total time non-weightbearing, we think operative fixation may lead to beginning weightbearing 2-3 weeks sooner, compared to non-operative treatment. At this time, he is uncertain if the benefit of those 2-3 weeks would outweigh the risks of surgery. We recommend at least a trial of non-operative management for the next 1-2 weeks, with hopes that pain will subside and he will be able to range his knee more, if this is the case we will likely continue non-operative management. We also discussed concerns related to wound healing after surgery especially with chronic venous stasis-type changes near our planned surgical incision. He voiced understanding and agrees with plan for trial of non-operative management. We will see him back on 07/07 for repeat images and evaluation. 1. Work on ROM, primarily straightening leg to full extension 2. Nonweightbearing LLE, ROM as tolerated 3. OTC pain medication, elevation, compression, rest, and ice for pain Follow-Up: On 07/07, checking x-rays AP/Lat 2 view left knee The patient is in agreement with today's plan and has no further questions. Speech-recognition software was utilized in the writing of this note and therefore the note may contain unintended word substitutions. Attestation: I saw and evaluated this patient and we have discussed the plan of care with the resident. I have personally reviewed the patient's imaging and laboratory data. I agree with the findings as detailed inthe resident's note. Briefly, this is a 62-year-old male very well known to me following a left distal femur fracture sustained approximately 9 months ago that was fixed with a nail-plate combination construct. Repeat radiographs have demonstrated maintained, excellent alignment of his fracture which now looks to be healed. He has had some persistent knee/distal thigh pain that we were concerned may be due to prominent interlocking screws and/or distal most screws from the lateral locking plate. Our plan had been to obtain a CT scan to evaluate this if his symptoms persisted. Unfortunately the patient contacted our office earlier this week due to new, severe pain in his anterior knee and proximal cadena after a fall directly onto a flexed knee. He has been unable to bear weight since this time. My review of the outside radiographs was concerning for a possible nondisplaced proximal tibia fracture. A CT scan obtained today does confirm the presence of a nondisplaced medial tibial plateau fracture variant which does extend into the medial most aspect of the lateral plateau. There is also involvement of the tibial tubercle. Given the nondisplaced nature of this fracture, I do believe that non operative treatment would be very reasonable. I think the chances of this displacing are quite low. However, this would require a period of protected weight-bearing, likely around 6 weeks. I do not believe he requires any immobilization and in fact I would want him to work on knee range of motion exercises such that he does not gettoo stiff. Surgical treatment of the fracture in the form of a medial or lateral locking plate wouldlikely shorten the duration of protected weight-bearing. Unfortunately I do not have operating room availability until the end of next week so I do not believe the time to weight-bearing benefit would be significantly different between operative or non operative treatment. Furthermore the patient doeshave some venous stasis changes on this leg that would likely increase the infection/wound healing risk just a bit. Therefore my recommendation was that we proceed with non operative treatment for now.I would like to see him back on 07/07/2022 for repeat clinical and radiographic evaluation. We couldalways reconsider operative treatment at that time if necessary. The patient and his were in agreement with this plan. Delgado Gottlieb MD [facility] Department of Orthopaedic Surgery [facility] documented in this encounter Plan of Treatment Upcoming Encounters Date Type Specialty Care Team Description 08/04/2022 Appointment Orthopedics Delgado Gottlieb MD [address] [place] [phone] (Gavi presley) 10/08/2022 Appointment Orthopedics Delgado Gottlieb MD [address] [place] [phone] (Gavi presley) 05/27/2023 Appointment Chemo Therapy/Infusion Services documented as of this encounter Results CT Knee Lt WO IV Cont (06/25/2022 11:21 AM CDT) Anatomical Region Laterality Modality Lower Extremity, Knee, Leg, Skeletal, Thigh Computed Tomography Specimen (Source) Anatomical Collection Method Collection Time Re ceived Time Location / / Volume Laterality 06/25/2022 11:21 AM CDT Narrative 06/25/2022 1:16 PM CDT EXAM: CT KNEE LT WO IV CONT LOCATION: [facility] DATE/TIME: 06/25/2022 11:21 AM INDICATION: Tibial tubercle [...] fract ure. Hardware partially seen on the liaison planner images in the distal femur from lateral [...] fracture. Hardware parti ally seen on the liaison planner images in the distal femur from lateral [...] in this encounter Visit Diagnoses Diagnosis Closed nondisplaced fracture of left tib ial plateau, initial encounter - Primary Closed fracture of distal end of left fe mur with routine healing, unspecified fracture morphology, subsequent encounte r Acute pain of left knee Closed fracture of distal end of left fe mur with routine healing, unspecified fracture morphology, subsequent encounte r documented in this encounter Care Teams Programs Assistant Relationship Specialty Start Date End Date Cintia Cobb MD PCP - General Family Practice 09/30/21 documented as of this encounter
--- OUTSIDE RECORDS SUMMARY | 2022-07-29 11:05 | XMS_ITS | Encounter Summary ---
:1960 Author Organization [facility] Address [address] [place] [address] Care Team Providers Name Role Phone Cintia Cobb MD Primary Care Provider [phone] Reason for Visit Reason Comments Medication Questions Encounter Details Date Type Department Care Team Description 06/13/2022 Refill [facility] Cesar Champagne, Medication Questions [address] [place], [place] [address] [phone] [place], [place] [phone] [place] [phone] (Wo rk) Social History Tobacco Use Types [...] documented as of this encounter Nursing Notes Mehreen Bolton, SIMEON - 06/13/2022 4:32 PM CDT Meds refilled. Called pt to inform. LVM and advise on follow up if pain continues HoangMehreen park RN - 06/13/2022 1:13 PM CDT S/P Decomp-Foraminotomy L2-4 Bilat DOS 01/27/[address] Scherer. Last refill of Flexeril was 05/14/22 for #30 with 1 refill. Routed to provider to approve or advise. Increased fill amount to #60. Pt does not have any follow ups scheduled at this time. Will recommend follow up if continuing to have pain. Per FARHAN note on 03/14/2022: PLAN: At this point, Mr. Luna, his , and I had a discussion with regard to management moving forward. At this point, I did recommend he begin a formal course of physical therapy to focus on core stabilization, strengthening, stretching of the lower extremities as well as reconditioning as his back condition along with his fracture of his left leg has really kind of sidelined him for a significantperiod of time. Mr. Luna is in agreement with the plan. He will follow up based on symptoms moving forward and call if further questions or concerns in the meantime Rebecca Chung - 06/13/2022 11:37 AM CDT Has the patient recently had surgery or an injury? Yes. Date of Surgery: January 27, 2022 Type of Surgery: Bilateral Lumbar 2-Lumbar 4 Decompression Foraminotomy (Bilateral) by Dr. Cesar Scherer What medication are you calling about (name or type - ask patient to provide proper spelling from prescription container): Muscle relaxer, Pt. Was unable to confirm name of Rx Dose: N/A How often do you take it: 2 tabs a day Who prescribed it: N/A What is your question/concern: Pt. Is requesting a larger refill of this Rx, he stated that he takesit twice a day and his last refill was only about a weeks worth of medication. Please follow up withPt. Regarding this request. Is it okay to leave detailed message on your voicemail? No VM available documented in this encounter Plan of Treatment Upcoming Encounters Date Type Specialty Care Team Description 08/04/2022 Appointment Orthopedics Delgado Gottlieb MD [address] [place], [place] [phone] (Gavi presley) 10/08/2022 Appointment Orthopedics Delgado Gottlieb MD [address] [place], [place] [phone] (Gavi presley) 05/27/2023 Appointment Chemo Therapy/Infusion Services documented as of this encounter Visit Diagnoses Not on filedocumented in this encounter Care Teams Sheetmetal Patternmaker Relationship Specialty Start Date End Date Cintia Cobb MD PCP - General Family Practice 09/30/21 documented as of this encounter
--- OUTSIDE RECORDS SUMMARY | 2022-07-29 11:05 | XMS_ITS | Clinical Summary ---
:1960 Author Organization [facility] Address [address] [address] Care Team Providers Name Role Phone Cintia Cobb MD Primary Care Provider [phone] Source Comments You are receiving this document as you are listed as the primary care provider,follow-up provider, or the patient has been referred to you for consultation.This is in compliance with the Medicare and Medicaid EHR Incentive Program,which states Providers who transition their patient to another setting of careor provider of care or refers their patient to another provider of care shouldprovide summarycare record for each transition of care or referral. GetFresh Allergies Active Allergy Reactions Severity Noted Date Comments Ciprofloxacin Unknown 11/03/2016 Swelling Haemophilus Influenzae Gastrointestinal 11/03/2016 D iarrhea Influenza A (H1n1) Monovalent Gastrointestinal 022 Diarrhea Vaccine Influenza Virus Vaccine Other, see comments 11/03/2016 Diarrhea Medications Medication Sig Dispensed Refills Start Date End Date Status furosemide (LASIX) 40 3 10/28/2016 Active MG tablet allopurinol 1 10/28/2016 Active (ZYLOPRIM) 300 MG tablet Sennosides (SENOKOT 0 Active OR) omeprazole (PRILOSEC) Take 20 mg by mouth 11 05/28/20 18 Active 20 MG capsule daily. B-D 3CC LUER-ARIES SYR USE DIRECTED FOR 8 Active 25GX5/8 25G X 5/8 3 CYANOCOBALAMIN ML INJECTION acetaminophen TAKE 2 TABLETS BY 180 Tablet 2 10/02/2021 Active (TYLENOL) 500 MG MOUTH THREE TIMES A 3 tabletIndications: DAY. MAXIMUM Pain ACETAMINOPHEN DOSE IS 4000 MG IN 24 HOURS INDICATIONS: FEVER, PAIN finasteride (PROSCAR) Take 5 mg by mouth 0 2 Active 5 MG tablet daily. tamsulosin (FLOMAX) Take 0.8 mg by 0 11/20/2021 Active 0.4 MG CAPS capsule mouth daily. Calcium Carbonate Chew and swallow 2 0 Active (AKA OS-JESSE) 1250 Tablets by mouth. (500 Ca) MG chewable tablet oxyCODONE Take 1-2 Tablets 25 Tablet 0 01/27/2022 Ac tive (ROXICODONE) 5 MG (5-10 mg) by mouth immediate release every 4 hours as tablet needed for Pain. diazePAM (VALIUM) 2 Take 1 Tablet (2 20 Tablet 0 01/27/2022 Active MG tablet mg) by mouth every 6 hours as needed for Muscle Spasms. cyclobenzaprine Take 1 Tablet (10 60 Tablet 1 06/13/2022 Active (FLEXERIL) 10 MG mg) by mouth two tablet times daily as needed. Active Problems Problem Noted Date Closed fracture of left distal femur 09/30/2021 Overview: Added automatically from request for emiliano rossi [id number] Encounters Date Type Specialty Care Team Description 07/22/2022 Telephone Orthopedics Delmer Valladares Nurse Return Call EMMA Fernandez Request (Requsantana baldwin to speak with R N) 07/14/2022 Telephone OrthopedicDelgado Heredia GE NERAL D, MD 07/07/2022 Office Visit Orthopedics Delgado Gottlieb Closed fractu re of MD Terri distal end of l eft femur with rout ine healing, unspec ified fracture morpho logy, subsequent enco unter (Primary Dx) 07/07/2022 Ancillary Radiology Delgado Gottlieb Closed fractu re of Procedure MD Terri distal end of l eft femur with rout ine healing, unspec ified fracture morpho logy, subsequent enco unter 06/26/2022 Telephone OrthopedicDelgado Heredia GE NERAL D, MD 06/25/2022 Office Visit OrthopedicDelgado Heredia Closed nondis placed fracture of left tibial plateau, initial encounter (Primary Dx); MD Terri Closed fracture of distal end of left femur with routine healing, unspecified fracture morphology, subsequent encounter 06/25/2022 Ancillary Radiology Delgado Gottlieb Acute pain of left knee; Procedure D, MD Closed fracture of distal end of left femur with routine healing, unspecified fracture morphology, subsequent encounter 06/23/2022 Telephone Orthopedics Delgado Gottlieb MD 06/23/2022 Telephone Orthopedics Delgado Gottlieb PAIN, NOS MD Terri 06/17/2022 Telephone Orthopedics Cesar Scherer, GENERAL MD Terri 06/16/2022 Notes/Orders Orthopedics Cesar Scherer MD 06/16/2022 Telephone Orthopedics Delgado Gottlieb GE NERAL D, MD 06/13/2022 Refill Orthopedics Cesar Scherer Medication Questions MD Terri 05/27/2022 Hospital Encounter Chemo Anali Lam, Close d fracture of Therapy/Infusion Pat Gutierrez, distal end of left Services MBBS femur with rout ine healing, unspec ified fracture morpho logy, subsequent enco unter (Primary Dx) 05/19/2022 Telephone Orthopedics Cesar Scherer Nurse Retur n Call MD Terri Request (Low ba ck pain) 05/10/2022 Refill Orthopedics Ita Mack, Refill PA-C 04/30/2022 Telephone Orthopedics Delmer Valladares, CHIDI Fernandez PAJenifer (Infusion Appointment) from Last 3 Months Social History Tobacco Use Types Packs/Day Years [...] ??F) 05/27/2022 8:40 AM CDT Respiratory Rate 16 01/27/2022 3:30 PM CDT Oxygen Saturation 100% 05/27/2022 8:40 AM CDT Inhaled Oxygen Concentration - - Weight 80.7 kg (178 lb) 01/27/2022 10:45 AM CDT Height 182.9 cm (6') 01/27/2022 10:51 AM CDT Body Mass Index 24.14 01/27/2022 10:45 AM CDT Plan of Treatment Upcoming Encounters Date Type Specialty Care Team Description 08/04/2022 Appointment Orthopedics Delgado Gottlieb MD [address] [place], [place] [address] (Wo rk) 10/08/2022 Appointment Orthopedics Delgado Gottlieb MD [address] [place], [place] [address] (Gavi rk) 05/27/2023 Appointment Chemo Therapy/Infusion Services Health Maintenance Due Date Last Done Comments Colon Cancer Screening Plan 1960 Due Hep C Screening (Preventive 1960 Services) COVID-19 Vaccine (#1) 1960 HIV Screening (Preventive 1974 Services) Adult Preventive Visit 1976 HepB (1) 1977 Cholesterol 1993 Zoster/Shingles (1 of 2) 2008 DTaP/Tdap/Td (3 - Tdap) 02/18/2022 02/19/2012, 12/05/2002 Influenza (#1) 2022 07/13/2008, 08/09/2007, 08/06/2006 PSA Screening Discussion 06/03/2023 06/03/2022 Dexa 12/21/2023 12/20/2021, 11/09/2019 Pneumococcal Aged Out 12/05/2002 No longer eligib le based on patient's age to complete this to pic HepA Aged Out No longer eligib le based on patient's age to complete this to pic Hib Aged Out No longer eligib le based on patient's age to complete this to pic IPV (Polio) Aged Out No longer eligib le based on patient's age to complete this to pic MCV4 Aged Out No longer eligib le based on patient's age to complete this to pic Medical Devices Implanted Type Area Can Line Examiner Device Shelf Model / Identifier Expiration Serial / Date Lot <Historic:?? [id number]/15/[id number] <Histori [employer] / Implanted: 01/19/2017 (Quantity not on file) c:?? Elect rophysiology [id number] / Cardiac- Rhythm Description: [place] [address] [id number] Pacemaker Implant ID:[id number] Pacemaker Leads are [employer]. 5mm Locking Screw For Im Nails;80mm DEVICE Left: FEMUR DISTAL DePuy Synthes - [id number] / Implanted: Qty: 1 on 10/01/2021 by Delgado Gottlieb MD at [facility] Trauma / Description: RFN ADVANCED RETROGRADE FEM ORAL NAIL SYSTEM Procedures Procedure Name Priority Date/Time Associated Diagnosis Comme nts XR KNEE LT 2 VIEWS Routine 07/07/2022 12:47 PM Closed fracture of Results for this CDT distal end of left procedure are in femur with routine the resul ts healing, unspecified section . fracture morphology, subsequent encounter CT KNEE LT WO IV STAT 06/25/2022 11:21 AM Acute pain of lef t Results for this CONT CDT knee procedure are in Closed fracture of the resul ts distal end of left section. femur with routine healing, unspecified fracture morphology, subsequent encounter from Last 3 Months Results XR Knee Lt 2 Views (07/07/2022 [...] EXAM: XR KNEE LT 2 VIEWS LOCATION: [facility] [address] DATE/TIME: 07/07/2022 12:47 PM INDICATION: Left [...] tissue swelling. Delgado Gottlieb MD RAD GD CT Knee Lt WO IV Cont (06/25/2022 11:21 AM CDT) Anatomical Region Laterality Modality Lower Extremity, Knee, Leg, Skeletal, Thigh Computed Tomography Specimen (Source) Anatomical Collection Method Collection Time Re ceived Time Location / / Volume Laterality 06/25/2022 11:21 AM CDT Narrative 06/25/2022 1:16 PM CDT EXAM: CT KNEE LT WO IV CONT LOCATION: [facility] [address] DATE/TIME: 06/25/2022 11:21 AM INDICATION: Tibial [...] fract ure. Hardware partially seen on the real estate rep images in the distal femur from lateral [...] fracture. Hardware parti ally seen on the real estate rep images in the distal femur from lateral [...] bone demineralization. Delgado Gottlieb MD RAD CT from Last 3 Months Insurance Payer Benefit Plan / Subscriber ID Effective Dates Phone Addre ss Type Group BCBS BCBS PMAP BLUE [id number] 2018-Present [address] [address] [place] [address] [employer]EM[employer] Personal/Family Advance Directives Latest Code Status on File Code Status Date Activated Date Inactivated Comments Full Code 01/27/2022 2:04 PM 01/27/2022 8:57 PM Code Status History Code Status Date Activated Date Inactivated Comments Full Code 10/01/2021 8:29 AM 10/03/2021 5:59 PM Full Code 09/30/2021 9:42 PM 10/01/2021 8:29 AM Full Code 08/18/2017 4:40 PM 08/18/2017 8:44 PM Care Teams Distribution Collection Operator Relationship Specialty Start Date End Date Cintia Cobb MD PCP - General Family Practice 09/30/21
--- OUTSIDE RECORDS SUMMARY | 2022-07-29 11:05 | XMS_ITS | Encounter Summary ---
:1960 Author Organization [facility] Address [address] [place] [address] Care Team Providers Name Role Phone Cintia Cobb MD Primary Care Provider Reason for Visit Reason Comments QUESTIONS, GENERAL Encounter Details Date Type Department Care Team Description 06/17/2022 Telephone [facility] Cesar Champagne, QUESTIONS, GENERAL [address] [place], [place] [address] [address] [place], [place] [phone] [place] [phone] (Wo rk) Social History Tobacco Use [...] documented as of this encounter Nursing Notes Hermilo Mcghee RN - 06/17/2022 10:26 AM CDT Pt was called back and he states he bent down a couple of days ago and he got a sharp pain. He has localized lower back pain. No radicular s/s. 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 He is going to use themuscle relaxer and OTC pain meds with icing. If pain does not improve he will call back and make an appt to be seen. Pt is in agreement with plan Amanda Damon - 06/17/2022 8:31 AM CDT Has the patient recently had surgery or an injury? Yes. Date of Surgery: January 27, 2022 Type of Surgery: Bilateral Lumbar 2-Lumbar 4 Decompression Foraminotomy (Bilateral) Patient is requesting a call back as soon as possible. 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 He may be difficult to reach for a call back. Would not give signwriter any information regarding why he is calling only states that he needs to speak with Nathalia and it is an emergency. documented in this encounter Plan of Treatment Upcoming Encounters Date Type Specialty Care Team Description 08/04/2022 Appointment Orthopedics Delgado Gottlieb MD [address] [place] [address] (Gavi presley) 10/08/2022 Appointment Orthopedics Delgado Gottlieb MD [address] [place], [place] [address] (Gavi presley) 05/27/2023 Appointment Chemo Therapy/Infusion Services documented as of this encounter Visit Diagnoses Not on filedocumented in this encounter Care Teams Director Banking Relationship Specialty Start Date End Date Cintia Cobb MD PCP - General Family Practice 09/30/21 documented as of this encounter
--- OUTSIDE RECORDS SUMMARY | 2022-07-29 11:06 | XMS_ITS | Encounter Summary ---
:1960 [facility] Address [address] [place] [address] Care Team Providers Name Role Phone Cintia Cobb MD Primary Care Provider [phone] Reason for Visit Reason Comments Refill Encounter Details Date Type Department Care Team Description 05/10/2022 Refill [facility] Ita Alvarez PA-C Refill [address] [facility] [address] [place], [place] [address] [place] [address] [phone] (Wo rk) Social History Tobacco Use Types [...] documented as of this encounter Nursing Notes Vale Shelby RN - 05/13/2022 5:10 PM CDT S/P Decomp-Foraminotomy L2-4 Bilat DOS 01/27/[address] Scherer. Last refill of Flexeril was 03/03/22 for #30 with 1 refill. Routed to provider to approve or advise. documented in this encounter Plan of Treatment Upcoming Encounters Date Type Specialty Care Team Description 08/04/2022 Appointment Orthopedics Delgado Gottlieb MD [address] [place], [place] [address] (Wo rk) 10/08/2022 Appointment Orthopedics Delgado Gottlieb MD [address] [place], [place] [address] (Wo rk) 05/27/2023 Appointment Chemo Therapy/Infusion Services documented as of this encounter Visit Diagnoses Not on filedocumented in this encounter Care Teams Screw Machine Repairer Relationship Specialty Start Date End Date Cintia Cobb MD PCP - General Family Practice 09/30/21 documented as of this encounter
--- OUTSIDE RECORDS SUMMARY | 2022-07-29 11:06 | XMS_ITS | Encounter Summary ---
:1960 Author Organization [employer] Address [address], [place] [address] Care Team Providers Name Role Phone Cintia Cobb MD Primary Care Provider Reason for Visit Auth/Cert Specialty Diagnoses / Procedures Referred By Contact Refer red To Contact Diagnoses Lumbar stenosis with neurogenic claudication Procedures Bilateral Lumbar 2-Lumbar 4 Decompression Foraminotomy Referral ID Status Reason Start Date Expiration Date Visits Requ ested Visits Authorized [id number] 1 1 Encounter Details Date Type Department Care Team Description 01/27/2022 Surgery [facility] Operating Everardo Scherer Lumbar 2-Lumbar Room MD Terri 4 Decompression [address] Foraminotomy [place], [place] [address] [place], [place] [phone] Social History Tobacco Use Types Packs/Day Years [...] Sign Reading Time Taken Comments Blood Pressure 137/84 01/27/2022 2:15 PM CDT Pulse 64 01/27/2022 2:15 PM CDT Temperature 36.4 ??C (97.5 ??F) 01/27/2022 2:04 PM CDT Respiratory Rate 12 01/27/2022 2:15 PM CDT Oxygen Saturation 97% 01/27/2022 2:15 PM CDT Inhaled Oxygen Concentration - - Weight 80.7 kg (178 lb) 01/27/2022 10:45 AM CDT Height 182.9 cm (6') 01/27/2022 10:51 AM CDT Body Mass Index 24.14 01/27/2022 10:45 AM CDT documented in this encounter Medications at Time of Discharge Medication Sig Dispensed Refills Start Date End Date acetaminophen TAKE 2 TABLETS BY 180 Tablet 2 10/02/202109/08 (TYLENOL) 500 MG MOUTH THREE TIMES A tabletIndications: DAY. MAXIMUM Pain ACETAMINOPHEN DOSE IS [...] as needed for Muscle Spasms. finasteride (PROSCAR) Take 5 mg by mouth 0 2021 5 MG tablet daily. furosemide (LASIX) 40 3 10/28/2016 MG tablet omeprazole (PRILOSEC) Take 20 mg by mouth 11 05/28 20 MG capsule daily. oxyCODONE (ROXICODONE) Take 1-2 Tablets (5-10 25 Tablet 0 0 01/27/2022 5 MG immediate release mg) by mouth every 4 tablet hours as needed for Pain. Sennosides (SENOKOT 0 OR) tamsulosin (FLOMAX) Take 0.8 mg by mouth 0 2021 0.4 MG CAPS capsule daily. documented as of this encounter Progress Notes Dilcia Cullen RN - 01/27/2022 6:49 PM CDT Patient expressed concerns on taking diazepam and oxycodone. Stated that he would like to keep taking Flexeril and robaxin as that is what he normally takes at home. Patient was educated that this was on his education to stop taking. Patient asked this nurse to page MD on reason. MD was paged but unable to get a hold of. This nurse told patient that she would page the commercial pest control representative MD. Patient refused because he wanted to go home and stated that he would follow up tomorrow and call the office. This nurse again went over discharge instructions and instructed patient to wait on taking flexeril and robaxin until he is able to talk to Dr machuca team. Patient declined to wait at front door to have pick him up. Insisted on going into parking rampwith her. NA wheeled patient up to the ramp elevator, and then patient ambulated on own. Patient waseducated on policy of hospital and possible risks. documented in this encounter Procedure Notes Freddy Delgado PA-C - 01/27/2022 2:04 PM CDT [facility] Brief Operative Progress Note Surgery Date: 01/27/2022 Surgeon(s) and Role: * Everardo Scherer MD - Primary * Freddy Delgado PA-C - Assisting Pre-op Diagnosis: * Lumbar stenosis with neurogenic claudication [M48.062] Post-op Diagnosis: * Lumbar stenosis with neurogenic claudication [M48.062] Procedure(s) (LRB): Bilateral Lumbar 2-Lumbar 4 Decompression Foraminotomy (Bilateral) EBL: 5ml Specimens: * No specimens in log * Complications / Findings: Everything went as planned. See operative note. Didier Delgado PA-C [phone] Everardo Scherer MD - 01/27/2022 12:00 AM CDT NAME: [facility]: [id number] OPERATIVE REPORT DATE OF SURGERY: 01/27/2022 : 1960 SURGEON: EVERARDO SCHERER MD [employer]: Freddy Delgado PA-C. PREOPERATIVE DIAGNOSIS: Bilateral spinal stenosis with neurogenic claudication, L2-3, L3-4. POSTOPERATIVE DIAGNOSIS: Bilateral spinal stenosis with neurogenic claudication, L2-3, L3-4. PROCEDURE: Quadrant assisted bilateral hemilaminotomies, laminal foraminotomies, purpose of spinal stenosis, decompression L2-3, L3-4. ANESTHESIA: General endotracheal. INDICATIONS: Mr. Luna is a 61-year-old gentleman who presents with progressive neurogenic claudication symptoms. These have been refractory to nonoperative care. The patient's preoperative CT myelogramdoes confirm spinal stenosis, central subarticular and foraminal L2-3, L3-4. Based on symptoms, he does wish to proceed on with surgical management as I describe below. Risks of surgical procedure wereclearly identified including and not limited to infection, dural laceration requiring repair, battered nerve root syndrome, failure of alleviation of symptoms, need for additional surgical management, epidural hematoma, increased spondylosis, any and all additional neurologic sequela, as well as general anesthetic risk. Informed consent was signed. OPERATIVE PROCEDURE: The patient was taken to the operating room and a general anesthetic was administered. Appropriate preoperative antibiotics were administered. Pneumatic compression stockings were also applied to both lower extremities. He was then positioned prone on the John John frame. Hisback was then prepped and draped in normal sterile fashion. Time-out was performed. This was followed by C-arm guided skin incision. A left 3 cm vertical paramedian incision was made, centered at L3. Incision was then continued down through subcutaneous tissue until the fascia was identified. The fascia was incised longitudinally. Metrics dilation was carried out and finally the quadrant retractor system was applied and confirmed bilaterally L2-3, bilaterally at L3- 4. At this point, high-speed MidasRex bur was used to perform laminotomy L2-3, L3-4 bilaterally. In addition, the ventral spinous process of L2 as well as L3 were resected. The interspinous ligament complex was kept intact. This did allow for safe entry into the central canal and the central canal was decompressed in this manner. Subarticular decompression was then carried out with 2 and 3 mm Kerrisons. My quality assistant protected the neural elements through the decompression. Subarticular decompression was obtained with decompression ofthe transversing lumbar 3 and 4 nerve roots. Finally formal foraminal decompression was carried out with my quality assistant protecting the exiting L2 and 3 nerve roots in the foramina bilaterally at L2-3, L3-4. Copious amounts of normal saline irrigation were then utilized. This followed by wound closure which consisted of 0 Vicryl to close the fascia, 2-0 Vicryl was used to reapproximate the subcutaneous t issue and finally skin was closed with Dermabond. The patient tolerated surgical procedure well without any intraoperative complications. ESTIMATED BLOOD LOSS: For the procedure 5 mL. All sponge counts were correct and there were no specimens sent. Mr. Velásquezua EMMA Delgado was used through the entirety of the surgical procedure to safelyretract the neural elements which provided safety for the patient through this surgical procedure. EVERARDO SCHERER MD JNIKHIL/AQS /[id number] documented in this encounter Miscellaneous Notes OR Nursing - Lesli Ng RN - 01/24/2022 3:42 PM CDT Pre-Procedure Assessment, PPA. Patient reports pre-procedure Covid-19 test done in [place] at [facility] on January 24. Results will be available in Care Everywhere. Last HGB 7.6 on 12/31/21; Paged to notify HGB result, dx chronic anemia. Anesthesiologist notified of upcoming procedure and HGB 7.6 with recent hx requiring blood transfusion [facility] No orders received. History and Physical also noted an open wound to right lower extremity being treated at a wound clinic in [place]; page to Dr. Scherer included FYI regarding wound. When patient received NPO instructions, he stated, Well I've had other surgeries when I have eaten breakfast and didn't have any problems. Router Setter attempted to explain [facility] is in place for his health and safety; Dr. Scherer's office notified. documented in this encounter Plan of Treatment Upcoming Encounters Date Type Specialty Care Team Description 08/04/2022 Appointment Orthopedics Delgado Gottlieb MD [address], [place] [address] (Gavi rk) 10/08/2022 Appointment Orthopedics Delgado Gottlieb MD [address], [place] [address] (Gavi presley) 05/27/2023 Appointment Chemo Therapy/Infusion Services documented as of this encounter Procedures Procedure Name Priority Date/Time Associated Diagnosis Comme nts GLUCOSE, WHOLE BLOOD Routine 01/27/2022 2:25 PM R esults for this POCT CDT procedure are i n the results section. DISCECTOMY OR 01/27/2022 11:53 Lumbar stenosis with LAMINECTOMY LUMBAR AM CDT neurogenic SPINE - TWO LEVELS claudication Case Notes Dr. Scherer confirmed fixe d marker is at the consented level TYPE AND SCREEN Routine 01/27/2022 11:46 AM CDT R esults for this procedure are in the resu lts section. ANTIBODY SCREEN Routine 01/27/2022 11:46 AM CDT R esults for this procedure are in the resu lts section. BLOOD TYPE Routine 01/27/2022 11:46 AM CDT Resu lts for this procedure are in the resu lts section. GLUCOSE, WHOLE BLOOD POCT Routine 01/27/2022 10:53 AM CDT Results for this procedure are in the resu lts section. documented in this encounter Results Glucose, Whole Blood POCT (01/27/2022 2:25 PM CDT) Analysis Performed At [facility] Time Signature Glucose, Whole 110 70 - 180 01/27/2022 [facility] Blood mg/dL 2:26 PM CDT LABORATORY Performing MT PACU 01/27/2022 [facility] Location 2:26 PM CDT LABORATORY Specimen Anatomical Collection Method Collection Time Receive d Time (Source) Location / / Volume Laterality Blood 01/27/2022 2:25 PM 2 2:26 CDT PM CDT Everardo Scherer MD LAB_1 Performing Organization Address [facility] Code Phon e Number [facility] [address] [place] [address] Antibody Screen (01/27/2022 11:46 AM CDT) Patholo gist Method Time Signature Antibody Screen Negative 01/27/2022 [facility] Interpretation 12:50 PM CDT BLOOD BANK Specimen Anatomical Collection Method / Collection Time Recei shahid Time (Source) Location / Volume Laterality Blood Venipuncture / 01/27/2022 11:46 2 Unknown AM CDT 11:51 AM CDT Efra Javier MD LAB_1 Performing Organization Address [facility] Phon e Number [facility] [address] [place] [address] Blood Type (01/27/2022 11:46 AM CDT) P athologist Signature ABO A 01/27/2022 [facility] 12:35 PM CDT BLOOD BANK RH Positive 01/27/2022 [facility] 12:35 PM CDT BLOOD BANK Specimen Anatomical Collection Method / Collection Time Recei shahid Time (Source) Location / Volume Laterality Blood Venipuncture / 01/27/2022 11:46 2 Unknown AM CDT 11:51 AM CDT Efra Javier MD LAB_1 Performing Organization Address [facility] Code Phon e Number [facility] [address] [place] [address] Glucose, Whole Blood POCT (01/27/2022 10:53 AM CDT) Analysis Performed At Patho logist Time Signature Glucose, Whole 105 70 - 180 01/27/2022 [facility] Blood mg/dL 10:54 AM CDT LABORATORY Performing MT SURG 01/27/2022 [facility] Location 10:54 AM CDT LABORATORY Specimen Anatomical Collection Method Collection Time Receive d Time (Source) Location / / Volume Laterality Blood 01/27/2022 10:53 01/27/2022 AM CDT 10:54 AM CDT Everardo Scherer MD LAB_1 Performing Organization Address City/State/ZIP Code Phon e Number [facility] [address] [place] [address] documented in this encounter Visit Diagnoses Diagnosis Spinal stenosis of lumbar region with ne urogenic claudication - Primary Spinal stenosis, lumbar region, with kaci rogenic claudication Lumbar stenosis with neurogenic claudica tion Spinal stenosis, lumbar region, with kaci rogenic claudication documented in this encounter Administered Medications Inactive Administered Medications - up to 3 most recent administrations Medication Order MAR Action Action Date Dose Rate Site bupivacaine-epinephrine Given 01/27/2022 1:39 PM CDT 8 mL (SENSORCAINE) 0.25% -1:[id number] injection ONCE PRN, Starting on Thu01/27/22 at 1339, Until Thu01/27/22 at 2056, Intra-op dextrose 5 % infusion at 250 mL/hr, ONCE PRN, Other, for nausea if all other options have failed and patient is not diabetic., Starting on Thu01/27/22 at 0 823, For 1 dose, PACU/Recovery fentaNYL (SUBLIMAZE) injection 25-50 mcg 25-50 mcg, Intravenous, [id number], Other, Moderate to Severe Pain (pain score 5 and above) in the immediate postop period when faster on-s et, short acting agent is desired., Starting on Thu01/27/22 at 082 3, Until Thu01/27/22 at 2056, Administer every 5 minutes as needed, to a maximum cumulative dose of 250 mcg. For patients with a regional, spinal, or local anesth etic, may give for anticipated pain as the anesthetic wears off., PACU/Recovery hydrALAZINE (APRESOLINE) injection 5 mg 5 mg, Intravenous, PRN, Other, symptomatic High Blood Pressure, Starting on Thu01/27/22 at 0823, Until Thu01/27/22 at 20 57, Give as directed by anesthesiologist, PACU/Recovery HYDROmorphone (DILAUDID) injection 0.2-0 .3 mg 0.2-0.3 mg, Intravenous, Q10MIN PRN, Pain, 0.2 mg IV f or Mild to Moderate pain (pain score 1-5), 0.3 mg IV for Moderate to Severe pain (pain score 6 and above) in the immediate postop period when longer acting agent is desired., Starting on Thu01/27/22 at 0823, Until Thu01/27/22 at 2056, Maximum cu mulative dose is 2 mg in PACU, call Anesthesiologist if additional dosage neede d. For patients with a regional, spinal, or local anesthetic, may give for an ticipated pain as the anesthetic wears off., PACU/Recovery lactated ringers infusion Started 01/27/2022 1:43 PM CDT 25 mL/hr 25 mL/hr, Intravenous, CONTINUOUS, Starting on Thu01/27/22 at 1045, Administer on all preop surgery patients, ages 12 and older, unless specified differently in the Protocol for Preop Initiation of IV fluids Order Set., Pre-op Continue from Pre-Op 01/27/2022 12:09 PM CDT 25 mL/hr Started 01/27/2022 11:35 AM CDT 25 mL/hr 25 mL/hr lidocaine PF (XYLOCAINE) 1 % injection Given 01/27/2022 11:34 AM CDT 0.2 mL 0.1-0.3 mL 0.1-0.3 mL, Intradermal, ONCE, On Thu01/27/22 at 1045, For 1 dose, Lidocaine to be used for IV starts unless patient refuses., Pre-op lidocaine PF (XYLOCAINE) 1 % injection 0 .1-0.3 mL 0.1-0.3 mL, Intradermal, PRN, Other, for additional IV starts, Starting on Thu01/27/22 at 1024, Pre-op meperidine (DEMEROL) injection 12.5 mg 12.5 mg, Intravenous, [id number], Shiverin g, Starting on Thu01/27/22 at 0823, Until Thu01/27/22 at 2056, For 2 doses, Maximu m cumulative dose is 25 mg. Do not give to patients receiving MAO inhibitors (e.g. phenelzine (NA RDIL), tranylcypromine (PARNATE), selegiline (ELDEPRYL))., PACU/Recovery naloxone (NARCAN) injection 0.08 mg 0.08 mg, Intravenous, PRN, Other, For respiratory rate less than 8/minute or patient difficult to arouse, Starting on Thu01/27/22 at 0823, Until Thu01/27/22 at 2056, May repeat every 3 minutes or until patient is r esponsive to physical stimulation and is able to take deep lynda aths. Maximum cumulative dose is 0.4 mg (1 mL). Continue to observe; if no response after administering total dose of 0.4 mg notify anesthesiologist STAT., PACU/Recovery naloxone (NARCAN) injection 0.4 mg 0.4 mg, Intravenous, ONCE PRN, Opioid Re versal, Starting on Thu01/27/22 at 0823, Until Thu01/27/22 at 2056, For 1 dose, F or imminent respiratory arrest. Notify MD if naloxone is given., PACU/Recovery octyl 2-cyanoacrylate Given 01/27/2022 1:42 PM CDT 1 Each Wound Site (LIQUIBAND/DERMABOND) adhesive ONCE PRN, Starting on Thu01/27/22 at 1342, Intra-op ondansetron (ZOFRAN) injection 4 mg 4 mg, Intravenous, Q4H PRN, Nausea, Vomiting, Starting on Thu01/27/22 at 0823, Until Thu01/27/22 at 2056, If multiple medications are ordered for nausea or vomiting - administer in the following priority based on medications ordered, effectiveness and availability: ondanset rk (ZOFRAN) > prochlorPERAZINE (COMPAZINE) > diphenhydrAMINE (BENADRYL) > hydrOXYzi ne HCl (VISTARIL)> ePHEDrine > scopolamine (TRANSDERM-SCOP)., PACU/Recovery prochlorperazine (COMPAZINE) injection 5 mg 5 mg, Intravenous, PRN, Nausea, Vomiting , Starting on Thu01/27/22 at 0823, Until Thu01/27/22 at 2056, For 2 doses, AVOID in patients wi th delirium, dementia, cognitive impairment, and/or Parkinson's disease 2nd d ose may be given in 15-30 minutes if first dose not effective. Maximum of 2 dose s only. If multiple medications are ordered for nausea or vomiting - admin ister in the following priority based on medications ordered, e ffectiveness and availability: ondansetron (ZOFRAN) > prochlorPERAZINE (COMPAZINE) > diphenhydrAMINE (BENADRYL) > hydrOXYzine HCl (VISTARIL)> ePHEDrine > scopolamine (TRANSDERM-SCO P)., PACU/Recovery documented in this encounter Active and Recently Administered Medications Times are shown in CDT. Scheduled Medication Order 01/25/2022 01/26/2022 01/27/2022 ceFAZolin (aka ANCEF) 2 g in dextrose 100 ml IVPB (COMPLETED) 1225 (Given - Provider: Abhay Salas APRN, LUZMA) 2 g, Intravenous, Administer over 30 Min utes, ONCE, On Thu01/27/22 at 1145, For 1 dose, Infuse within 60 minutes prior to incision. Re-dose 1 gram IV every 4 hours after initial dose until incision clos ed. Re-dose if more than 1.5 L of blood loss. Pharmacy may adjust for renal insufficiency., Pre-op lidocaine PF (XYLOCAINE) 1 % injection 0.1-0.3 mL (COMPLETED) 1134 (Given - Provider: Vicky Oconnell RN) 0.1-0.3 mL, Intradermal, ONCE, On Thu at 1045, For 1 dose, Lidocaine to be used for IV starts unless patient refuses., Pre-op Continuous Medication Order 01/25/2022 01/26/2022 01/27/2022 lactated ringers infusion 1135 ( Started - Provider: Vicky Oconnell RN)1209 (Continue from Pre-Op - Provider: Abhay Salas APRN, LUZMA)1343 (Started - Provider: Abhay Salas APRN, CRNA) 25 mL/hr, Intravenous, CONTINUOUS, Start ing on Thu01/27/22 at 1045, Administer on all preop surgery patients, ages 12 and older, unless specified differently in the Protocol for Preop Initiation of IV fluids Order Set., Pre-op PRN Medication Order 01/25/2022 01/26/2022 01/27/2022 acetaminophen (TYLENOL) tablet 325-650 mg 325-650 mg, Oral, Q4H PRN, Other, Mild P ain (pain score 1-4), Starting on Thu01/27/22 at 1446, Until Thu01/27/22 at 2057, Give if able to take oral medications. Give for mild pain or if patient prefers acetaminophen over other options for pain (all pain scores)., Po st-op bupivacaine-epinephrine (SENSORCAINE) 0.25% -1:809917 injection 1339 (Given - Provider: Everardo Scherer MD) ONCE PRN, Starting on Thu01/27/22 at 1339, Until Thu01/27/22 at 2056, Intra-op dextrose 5 % infusion at 250 mL/hr, ONCE PRN, Other, for nause a if all other options have failed and patient is not diabetic., Starting on Thu01/27/22 at 0823, For 1 dose, PACU/Recovery fentaNYL (SUBLIMAZE) injection 25-50 mcg 25-50 mcg, Intravenous, [id number], Other, Moderate to Severe Pain (pain score 5 and above) in the immediate postop period when faster on-set, short acting agent is desired., Starting on Thu01/27/22 at 08 23, Until Thu01/27/22 at 2056, Administe r every 5 minutes as needed, to a maximum cumulative dose of 250 mcg. For patients with a regional, spinal, or local anesthetic, may give for anticipated pain as the anesthetic wears off., PACU/Recovery hydrALAZINE (APRESOLINE) injection 5 mg 5 mg, Intravenous, PRN, Other, symptomat ic High Blood Pressure, Starting on Thu01/27/22 at 0823, Until Thu01/27/22 at 2056, Give as directed by anesthesiologist, PACU/Recovery HYDROmorphone (DILAUDID) injection 0.2-0.3 mg 0.2-0.3 mg, Intravenous, Q10MIN PRN, Nilda n, 0.2 mg IV for Mild to Moderate pain (pain score 1-5), 0.3 mg IV for Moderate to Severe pain (pain score 6 and above) in the immediate postop period when longer acting agent is desired., Starting on M on 01/27/22 at 0823, Until Thu01/27/22 at 2056, Maximum cumulative dose is 2 mg in PACU, call Anesthesiologist if additional dosage needed. For patients with a reg ional, spinal, or local anesthetic, may give for anticipated pain as the anesthetic wears off., PACU/Recovery lidocaine PF (XYLOCAINE) 1 % injection 0.1-0.3 mL 0.1-0.3 mL, Intradermal, PRN, Other, for additional IV starts, Starting on Thu01/27/22 at 1024, Pre-op meperidine (DEMEROL) injection 12.5 mg 12.5 mg, Intravenous, [id number], Shiverin g, Starting on Thu01/27/22 at 0823, Until Thu01/27/22 at 2056, For 2 doses, Maximum cumulative dose is 25 mg. Do not give to patients receiving MAO inhibitors (e. g. phenelzine (NARDIL), tranylcypromine (PARNATE), selegiline (ELDEPRYL))., PACU/Recovery naloxone (NARCAN) injection 0.08 mg 0.08 mg, Intravenous, PRN, Other, For re spiratory rate less than 8/minute or patient difficult to arouse, Starting on Thu01/27/22 at 0823, Until Thu01/27/22 at 2056, May repeat every 3 minutes or until patient is responsive to physical stimul ation and is able to take deep breaths. Maximum cumulative dose is 0.4 mg (1 mL). Continue to observe; if no response after administering total dose of 0.4 mg notify anesthesiologist STAT., PACU/Recovery naloxone (NARCAN) injection 0.4 mg 0.4 mg, Intravenous, ONCE PRN, Opioid Re versal, Starting on Thu01/27/22 at 0823, Until Thu01/27/22 at 2056, For 1 dose, For imminent respiratory arrest. Notify MD if naloxone is given., PACU/Recovery octyl 2-cyanoacrylate (LIQUIBAND/DERMABOND) adhesive 1342 (Given - Provider: Everardo Scherer MD) ONCE PRN, Starting on Thu01/27/22 at 1342, Intra-op ondansetron (ZOFRAN) injection 4 mg 4 mg, Intravenous, Q4H PRN, Nausea, Vomi ting, Starting on Thu01/27/22 at 0823, Until Thu01/27/22 at 2056, If multiple medications are ordered for nausea or vomiting - administer in the following priorit y based on medications ordered, effectiv eness and availability: ondansetron (ZOFRAN) > prochlorPERAZINE (COMPAZINE) > diphenhydrAMINE (BENADRYL) > hydrOXYzine HCl (VISTARIL)> ePHEDrine > scopolamine (TRANSDERM-SCOP)., PACU/Recovery oxyCODONE (ROXICODONE) immediate release tablet 5-10 mg 5-10 mg, Oral, Q4H PRN, Other, Moderate Pain or Severe Pain (1 tablet for pain level 5-7, 2 tablets for pain level 8-10), Starting on Thu01/27/22 at 1446, Until Thu01/27/22 at 2056, Post-op prochlorperazine (COMPAZINE) injection 5 mg 5 mg, Intravenous, PRN, Nausea, Vomiting , Starting on Thu01/27/22 at 0823, Until Thu01/27/22 at 2056, For 2 doses, AVOID in patients with delirium, dementia, cognitive impairment, and/or Parkinson's dis ease 2nd dose may be given in 15-30 andreas wandy if first dose not effective. Maximum of 2 doses only. If multiple medications are ordered for nausea or vomiting - administer in the following priority based on medications ordered, effectiveness an d availability: ondansetron (ZOFRAN) > prochlorPERAZINE (COMPAZINE) > diphenhydrAMINE (BENADRYL) > hydrOXYzine HCl (VISTARIL)> ePHEDrine > scopolamine (TRANSDERM-SCOP)., PACU/Recovery documented in this encounter Care Teams Crm Marketing Executive Relationship Specialty Start Date End Date Cintia Cobb MD PCP - General Family Practice 09/30/21 documented as of this encounter
--- OUTSIDE RECORDS SUMMARY | 2022-07-29 11:06 | XMS_ITS | Encounter Summary ---
:1960 Author Organization [facility] Address [address], [place] [address] Care Team Providers Name Role Phone Cintia Cobb MD Primary Care Provider [phone] Reason for Visit Reason Comments Nurse Return Call Request Low back pain Encounter Details Date Type Department Care Team Description 05/19/2022 Telephone [facility] Cesar Champagne Nurse Return Call [address] [facility] MD Terri Request (Low back pain) [place], [place] [address] [address] [place] [address] [place] [address] Social History Tobacco Use Types Packs/Day [...] documented as of this encounter Nursing Notes Nathalia Stokes RN - 05/19/2022 11:24 AM CDT Spoke to patient, he reports after 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 Denies any pain into his extremities. Currently is taking Tylenol, Ibuprofen and Flexeril.Advised to add in ice/heat and gentle stretching as well. He will call if he does not have any improvement or symptoms increase or change. Eli Mercado - 05/19/2022 8:46 AM CDT Has the patient recently had surgery or an injury? Yes. Date of Surgery: January 27, 2022 Type of Surgery: decompression L2 to L4 with bilateral foraminotomies How may we help you today? Pt is calling to talk to the nurse about low back pain. Describe your symptoms/concerns: Pt states that he was at his class reunion over the weekend and stood talking to people for 3 hours straight and when he left had tremendous low back pain, is that normal? Please call the pt at [phone] and if no answer keep trying as he will be in and out of his truck. When did the issue start: over the weekend Have you been seen for this recently?: 03/14/22 Didier Delgado [Heliotherapist/Appt Center: If yes, please include date and provider.] Is it okay to leave detailed message on your voicemail? No keep trying [Heliotherapist/Appt Center: If this call is after 3 p.m., communicate to patient: If we are not able to get back to you by the end of the day and your symptoms worsen please contact the Careline] documented in this encounter Plan of Treatment Upcoming Encounters Date Type Specialty Care Team Description 08/04/2022 Appointment Orthopedics Delgado Gottlieb MD [address] [place], [place] [address] (Gavi presley) 10/08/2022 Appointment Orthopedics Delgado Gottlieb MD [address] [place], [place] [address] (Gavi presley) 05/27/2023 Appointment Chemo Therapy/Infusion Services documented as of this encounter Visit Diagnoses Not on filedocumented in this encounter Care Teams Production Welding Supervisor Relationship Specialty Start Date End Date Cintia Cobb MD PCP - General Family Practice 09/30/21 documented as of this encounter
--- OUTSIDE RECORDS SUMMARY | 2022-07-29 11:06 | XMS_ITS | Encounter Summary ---
:1960 Author [facility] Address [address] [place] [address] Care Team Providers Name Role Phone Cintia Cobb MD Primary Care Provider Reason for Visit Reason Comments Refill Encounter Details Date Type Department Care Team Description 03/01/2022 Refill [facility] Ita Alvarez PA-C Refill [address] [facility] [address] [facility] [place], [place] [address] [place] [address] [phone] (Wo rk) Social History Tobacco Use Types [...] encounter Nursing Notes Hermilo Mcghee RN - 03/03/2022 8:57 AM CDT Last refill was 12/23/21 post Decomp-Foraminotomy L2-4 Bilat/DOS 01/27/22 Per SO refill sent to his pharmacy documented in this encounter Plan of Treatment Upcoming Encounters Date Type Specialty Care Team Description 08/04/2022 Appointment Orthopedics Delgado Gottlieb MD [address] [place], [place] [address] (Gavi rk) 10/08/2022 Appointment Orthopedics Delgado Gottlieb MD [address] [place] [address] (Gavi presley) 05/27/2023 Appointment Chemo Therapy/Infusion Services documented as of this encounter Visit Diagnoses Not on filedocumented in this encounter Care Teams Single Needle Tufting Machine Operator Relationship Specialty Start Date End Date Cintia Cobb MD PCP - General Family Practice 09/30/21 documented as of this encounter
--- OUTSIDE RECORDS SUMMARY | 2022-07-29 11:06 | XMS_ITS | Encounter Summary ---
:1960 Author Organization [facility] Address [address] [place] [address] Care Team Providers Name Role Phone Cintia Cobb MD Primary Care Provider [phone] Reason for Referral Procedure/Equipment (Routine) - Incomplete Specialty Diagnoses / Procedures Referred By Contact Refer red To Contact Diagnoses Diagnosis unknown Cesar Scherer MD Procedures FL C Arm [address] [facility] [address] [place], [place] [phone] Referral ID Status Reason Start Date Expiration Date Visits V isits Requested Authorized [id number] Incomplete 01/27/2022 04/28/2023 1 1 Reason for Visit Auth/Cert Specialty Diagnoses / Procedures Referred By Contact Refer red To Contact Diagnoses Lumbar stenosis with neurogenic claudication Procedures Bilateral Lumbar 2-Lumbar 4 Decompression Foraminotomy Referral ID Status Reason Start Date Expiration Date Visits Requ ested Visits Authorized [id number] 1 1 Encounter Details Date Type Department Care Team Description 01/27/2022 Hospital Encounter [facility] Cesar Scherer Diagnosis unknown [address] Murray MD [place], [place] [address] [address] [place] [address] [place] [address] Social History Tobacco Use Types Packs/Day [...] B-D 3CC LUER-ARIES SYR USE DIRECTED FOR 2017 25GX5/8 25G X 5/8 3 CYANOCOBALAMIN [...] capsule daily. documented as of this encounter Plan of Treatment Upcoming Encounters Date Type Specialty Care Team Description 08/04/2022 Appointment Orthopedics Delgado Gottlieb MD [address] [place] [address] (Wo rk) 10/08/2022 Appointment Orthopedics Delgado Gottlieb MD [address] [place], [place] [address] (Wo rk) 05/27/2023 Appointment Chemo Therapy/Infusion Services documented as of this encounter Procedures Procedure Name Priority Date/Time Associated Diagnosis Comme nts FL C ARM Routine 01/27/2022 2:03 PM Diagnosis unknown Resu lts for this CDT procedure are i n the results section . documented in this encounter Results FL C Arm (01/27/2022 2:03 PM CDT) Anatomical Region Laterality Modality Radiographic Imaging Specimen (Source) Anatomical Location Collection Method / Collectio n Time Received Time / Laterality Volume Narrative 01/27/2022 2:04 PM CDT These images were obtained during a surg ical procedure. Cesar Scherer MD RAD [place] documented in this encounter Visit Diagnoses Diagnosis Diagnosis unknown Other unknown and unspecified cause of m orbidity or mortality documented in this encounter Care Teams Chief Internal Auditor Relationship Specialty Start Date End Date Cintia Cobb MD PCP - General Family Practice 09/30/21 documented as of this encounter
--- OUTSIDE RECORDS SUMMARY | 2022-07-29 11:06 | XMS_ITS | Encounter Summary ---
:1960 Author Organization [facility] Address [address] [place] [address] Care Team Providers Name Role Phone Cintia Cobb MD Primary Care Provider [phone] Reason for Visit Reason Comments COVID Screening Pre op screening Encounter Details Date Type Department Care Team Description 01/17/2022 Telephone [facility] Cesar Champagne COVID Screening (Pre op 8100 [facility] MD Terri screening) [place], [place] [address] [address] [place] [phone] [place] [address] Social History Tobacco Use Types Packs/Day [...] documented as of this encounter Nursing Notes Lesli Motley - 01/20/2022 9:29 AM CDT [facility] never reached back with a fax and patient unfortunately couldn't provide any forwarding information so I faxed the covid order to the main fax with the attn: Lab at . Nathalia Stokes RN - 01/17/2022 10:17 AM CDT COVID test order signed per provider pre-op protocol. Lesli Motley - 01/17/2022 10:11 AM CDT Patient calling asking for a covid test order to be send to [facility] so he can get his test next Thursday. He asked me to send it to the wound clinic where he's being treated. Patient didn't provide details or fax numbers and asked to just sent it there. I informed him if I just send it to their main number there's a high chance it won't make it to where it needs to be in time and may delay or not allow his covid test to happen. Called [facility] and spoke with the wound clinic where he wasjust seen and she directed me to the lab utility mechanic supervisor at [phone] to see if they want the order directly. I left the lab utility mechanic supervisor a detailed message regarding the situation and needing a correct fax #. Spine nurse, can you please sign the pended covid test orders. When I get a call back from [facility] I can fax it. documented in this encounter Plan of Treatment Upcoming Encounters Date Type Specialty Care Team Description 08/04/2022 Appointment Orthopedics Delgado Gottlieb MD [address] [place], [place] [address] (Gavi presley) 10/08/2022 Appointment Orthopedics Delgado Gottlieb MD [address] [place], [place] [address] (Gavi presley) 05/27/2023 Appointment Chemo Therapy/Infusion Services documented as of this encounter Visit Diagnoses Diagnosis Screening examination for infectious dis ease - Primary Screening examination for unspecified in fectious disease documented in this encounter Care Teams Paint Line Supervisor Relationship Specialty Start Date End Date Cintia Cobb MD PCP - General Family Practice 09/30/21 documented as of this encounter
--- OUTSIDE RECORDS SUMMARY | 2022-07-29 11:06 | XMS_ITS | Encounter Summary ---
:1960 Author Organization [facility] Address [address], [place] [address] Care Team Providers Name Role Phone Cintia Cobb MD Primary Care Provider Reason for Visit Procedure/Equipment (Routine) - Incomplete Specialty Diagnoses / Procedures Referred By Contact Refer red To Contact Diagnoses Closed fracture of distal end of left femur with routine healing, unspecified fracture morphology, subsequent encounter Delgado Gottlieb MD Procedures XR Femur Lt [address] [place] [address] Referral ID Status Reason Start Date Expiration Date Visits V isits Requested Authorized [id number] Incomplete 04/02/2022 07/02/2023 1 1 Encounter Details Date Type Department Care Team Description 04/02/2022 Ancillary [facility] Delgado Gottlieb Closed frac ture of Procedure Specialty Center Donnell Murray MD distal end of left Radiology [address] femur with routine [address] healing, [place] [address] [place], [place] unspecified [phone] fracture [phone] morphology, (Work) subsequent [phone] encounter (Fax) Social History Tobacco Use Types [...] 08/04/2022 Appointment Orthopedics Delgado Gottlieb MD [address] [place], [place] [address] (Wo rk) 10/08/2022 Appointment Orthopedics Delgado Gottlieb MD [address] [place], [place] [address] (Gavi rk) 05/27/2023 Appointment Chemo Therapy/Infusion Services documented as of this encounter Procedures Procedure Name Priority Date/Time Associated Diagnosis Comme nts XR FEMUR LT 2 VIEWS Routine 04/02/2022 7:48 AM Closed fracture of Results for this CDT distal end of left procedure are in femur with routine the resul ts healing, unspecified section . fracture morphology, subsequent encounter documented in this encounter Results XR Femur Lt 2 Views (04/02/2022 7:48 AM CDT) Anatomical Region Laterality Modality Lower Extremity, Leg, Thigh Computed Rad iography Specimen (Source) Anatomical Collection Method Collection Time Re ceived Time Location / / Volume Laterality 04/02/2022 7:48 AM CDT Narrative 04/02/2022 7:56 AM CDT EXAM: XR FEMUR LT 2 VIEWS LOCATION: [facility] 435 DATE/TIME: 04/02/2022 7:48 AM INDICATION: Open reduction internal fixa tion of left supracondylar distal femur fracture COMPARISON: 11/27/2021 IMPRESSION: ORIF of a distal left femur fracture. No interval hardware complication. Progressive incomplete healing. Procedure Note Sebas Thompson MD - 04/02/2022Formatti ng of this note might be different from the original. EXAM: XR FEMUR LT 2 VIEWS LOCATION: [facility] 435 DATE/TIME: 04/02/2022 7:48 AM INDICATION: Open reduction internal fixa tion of left supracondylar distal femur fracture COMPARISON: 11/27/2021 IMPRESSION: ORIF of a distal left femur fracture. No interval hardware complication. Progressive incomplete healing. Delgado Gottlieb MD RAD [facility] documented in this encounter Visit Diagnoses Diagnosis Closed fracture of distal end of left fe mur with routine healing, unspecified fracture morphology, subsequent encounte r documented in this encounter Care Teams Power Crane Operator Relationship Specialty Start Date End Date Cintia Cobb MD PCP - General Family Practice 09/30/21 documented as of this encounter
--- OUTSIDE RECORDS SUMMARY | 2022-07-29 11:06 | XMS_ITS | Encounter Summary ---
:1960 Author Organization [facility] Address [address] [place] [address] Care Team Providers Name Role Phone Cintia Cobb MD Primary Care Provider [phone] Reason for Visit Reason Comments QUESTIONS, GENERAL Left Leg Encounter Details Date Type Department Care Team Description 03/17/2022 Telephone Specialty Center [address] Delgado Gottlieb, QUESTIONS, GENERAL [facility]opedics [facility] (Left Leg) [facility] [address] [place] [address] [place], [place] [phone] [address] Social History Tobacco Use Types Packs/Day Years [...] documented as of this encounter Nursing Notes Gretchen Patino, ATC - 03/19/2022 12:38 PM CDT I called and spoke with the patient; as Rosetta described as well he began having severe pain at the left knee for the past month or so, with no known injury or change in activity. He continues to take his muscle relaxant and Tylenol arthritis. He is not in physical therapy as they did not have appt times that would work for him. He continues to walk with a limp. I offered a sooner appointment with Leta Daigle PA-C next week, though he said he would not be able to take the time off of work. Will plan to see him as scheduled on 04/02; I reminded him of the appt time being at 7:40am and coming early for x-ray. He stated this was not early enough, that I needed to find him an earlier appointment time, and that he had to go. He ended the call. I will leave this as an FYI to the [facility] time to clarify that he knows his appointment date and time if he calls back. As it sounds as though he wouldn't be able to come in next week, will plan to follow up with him and recheck x-rays at his appt on 04/02. Gretchen Patino ATC 03/19/2022, 12:45 PM Rosetta Ye RN - 03/18/2022 3:25 PM CDT Ed is calling back stating My knee has been killing me for the last month. He states that wheneverhe goes from a sitting to a standing or a standing to a sitting position, it feels like a sharp knife throughout the whole knee area. He states it feels like a vice peoplesoft functional analyst. He states he is also havinga sharp cutting pain on the front of the hip and toward the outside edge. He states he has been able to bear weight and is not using an assistive device. He states that he had back surgery on January 27and this is a different type of pain than what he had prior to his back surgery. He states he will be starting PT on March 24. He denies any new numbness or tingling. He denies fever, but states he has had chills. He denies any swelling to the knee, hip or leg. He states he has been wearing his knee braces and has been using the tubigrip. He states he takes Tylenol Arthritis daily for pain. He is scheduled for follow up on April 02, 2022. Please advise. Thank you. Rosetta Ye RN 03/18/2022, 3:33 PM Rosetta Ye RN - 03/18/2022 2:56 PM CDT Attempted to reach patient, but the call drops after it rings once. Rosetta Ye RN 03/18/2022, 2:56 PM Rosetta Ye RN - 03/18/2022 9:50 AM CDT Cell # drops call. Left message on home phone to return call. Rosetta Ye RN 03/18/2022, 9:50 AM Amanda Damon - 03/17/2022 12:42 PM CDT Has the patient recently had surgery or an injury? Yes. Date of Surgery: October 01, 2021 Type of Surgery: OPEN REDUCTION INTERNAL FIXATION SUPRACONDYLAR DISTAL FEMUR FRACTURE Patient is requesting a call back from nurseRosetta regarding his left leg. He states he is having problems, but did not leave any further details. Patient is working today and states he may be hard toreach by phone. He does not have voicemail set up on his phone and he will try to watch for a returncall. documented in this encounter Plan of Treatment Upcoming Encounters Date Type Specialty Care Team Description 08/04/2022 Appointment Orthopedics Delgado Gottlieb MD [address] [place], [place] [address] (Gavi presley) 10/08/2022 Appointment Orthopedics Delgado Gottlieb MD [address] [place], [place] [address] (Gavi presley) 05/27/2023 Appointment Chemo Therapy/Infusion Services documented as of this encounter Visit Diagnoses Not on filedocumented in this encounter Care Teams Power System Electrical Engineer Relationship Specialty Start Date End Date Cintia Cobb MD PCP - General Family Practice 09/30/21 documented as of this encounter
--- OUTSIDE RECORDS SUMMARY | 2022-07-29 11:06 | XMS_ITS | Encounter Summary ---
:1960 Author Organization [facility] Address [address] [address] Care Team Providers Name Role Phone Cintia Cobb MD Primary Care Provider [phone] Encounter Details Date Type Department Care Team Description 01/27/2022 Orders Only HIM DEPARTMENT Provider, Aguilar hernandez MD Interface provid er interface provider, DREW [address] Social History Tobacco Use Types Packs/Day Years [...] 08/04/2022 Appointment Orthopedics Delgado Gottlieb MD [address] [place], [place] [address] (Gavi presley) 10/08/2022 Appointment Orthopedics Delgado Gottlieb MD [address] [facility] [place] [address] (Gavi presley) 05/27/2023 Appointment Chemo Therapy/Infusion Services documented as of this encounter Procedures Procedure Name Priority Date/Time Associated Diagnosis Comme nts LABORATORY REPORT 01/27/2022 Results fo r this procedure are in the resu lts section. documented in this encounter Results LABORATORY REPORT (01/27/2022) Narrative This result has an attachment that is no t available. Interface Provider MD DUMMY/OTHER/AR documented in this encounter Visit Diagnoses Not on filedocumented in this encounter Care Teams Needle Molder Relationship Specialty Start Date End Date Cintia Cobb MD PCP - General Family Practice 09/30/21 documented as of this encounter
--- OUTSIDE RECORDS SUMMARY | 2022-07-29 11:06 | XMS_ITS | Encounter Summary ---
:1960 Author Organization [facility] Address [address] [place] [address] Care Team Providers Name Role Phone Cintia Cobb MD Primary Care Provider [phone] Encounter Details Date Type Department Care Team Description 02/16/2022 Notes/Orders [facility] Cesar Champagne, [address] [place], [place] [address] [address] [place] [address] [place] [address] (Gavi presley) Social History Tobacco [...] Description 08/04/2022 Appointment Orthopedics Delgado Gottlieb MD [address] [place] [address] (Gavi rk) 10/08/2022 Appointment Orthopedics Delgado Gottlieb MD [address] [place] [address] (Wo rk) 05/27/2023 Appointment Chemo Therapy/Infusion Services documented as of this encounter Visit Diagnoses Not on filedocumented in this encounter Care Teams Cross Tie Tram Loader Relationship Specialty Start Date End Date Cintia Cobb MD PCP - General Family Practice 09/30/21 documented as of this encounter
--- OUTSIDE RECORDS SUMMARY | 2022-07-29 11:06 | XMS_ITS | Encounter Summary ---
:1960 Author Organization [facility] Address [address] [place] [address] Care Team Providers Name Role Phone Cintia Cobb MD Primary Care Provider [phone] Reason for Visit Reason Comments QUESTIONS, GENERAL Encounter Details Date Type Department Care Team Description 01/29/2022 Telephone [facility] Cesar Champagne QUESTIONS, GENERAL (/) 8100 [facility] MD Terri [place], [place] [address] [address] [place], [place] [address]-[address] [place] [phone] Social History Tobacco Use Types Packs/Day [...] encounter Nursing Notes Hermilo Mcghee RN - 01/31/2022 4:15 PM CDT Explained to patient that Didier had to leave early from clinic. A message was sent to Didier as patientstates he has been sitting by the phone all day waiting for a phone call. His pain is controlled. Hestates sometimes he wakes up in the middle of the night and has to pee so bad he can barely make it to the bathroom. He will try and urinate more often to avoid urgency. Pt will monitor his symptoms and call back if he any pain returns. Didier will be calling patient today Pb Velasco - 01/31/2022 4:02 PM CDT Patient called and said he has been waiting by the phone all day for someone to get back to him about his prior surgery on 01/27/22. He said he has not taken any medicines Or has not eaten anything today and it's almost 5 pm. He needs to speak with someone urgently. Stewart [place] - 01/31/2022 3:09 PM CDT Patient stated he was to receive a call today. Would like a follow up call please. Hermilo Mcghee RN - 01/29/2022 12:38 PM CDT Pt is post Decomp-Foraminotomy L2-4 Bilat/DOS 01/27/22 [facility] Pt was called and he states he has some swelling in his back where surgery was. Instructed patient to ice but he states he gets too cold He would like to talk to Didier on Thursday regarding the levels which were operated on his back Francisca Yap - 01/29/2022 11:38 AM CDT Has the patient recently had surgery or an injury? Yes. Date of Surgery: January 27, 2022 Type of Surgery:Bilateral Lumbar 2-Lumbar 4 Decompression Foraminotomy (Bilateral ) How may we help you today? Patient calling stating he would like Nathalia or someone from the team callhim back, he has some questions about his surgery that he had on 01/27/2022. Please advise Describe your symptoms/concerns: na When did the issue start: na Have you been seen for this recently?: na [Glaucoma Specialist/Appt Center: If yes, please include date and provider.] Is it okay to leave detailed message on your voicemail? YES [Glaucoma Specialist/Appt Center: If this call is after 3 p.m., communicate to patient: If we are not able to get back to you by the end of the day and your symptoms worsen please contact the Careline] documented in this encounter Plan of Treatment Upcoming Encounters Date Type Specialty Care Team Description 08/04/2022 Appointment Orthopedics Delgado Gottlieb MD [address] [place] [address] (Gavi presley) 10/08/2022 Appointment Orthopedics Delgado Gottlieb MD [address] [place], [place] [address] (Gavi presley) 05/27/2023 Appointment Chemo Therapy/Infusion Services documented as of this encounter Visit Diagnoses Not on filedocumented in this encounter Care Teams Social Media Editor Relationship Specialty Start Date End Date Cintia Cobb MD PCP - General Family Practice 09/30/21 documented as of this encounter
--- OUTSIDE RECORDS SUMMARY | 2022-07-29 11:06 | XMS_ITS | Encounter Summary ---
:1960 [facility] Address [address] [place] [address] Care Team Providers Name Role Phone Cintia Cobb MD Primary Care Provider [phone] Reason for Visit Reason Comments APPOINTMENT REQUEST Pt requesting to have his po stop appt first thing in the morning due to work commitment. Encounter Details Date Type Department Care Team Description 02/04/2022 Telephone [facility] Freddy Delgado, APPOI NTMENT REQUEST CENTER [facility] (Pt requesting to have [address] his postop appt first [place], [place] [address] [place], [place] thing in the morning [phone] due to work [phone] (Wo rk) commitment. ) Social History Tobacco Use Types Packs/Day Years [...] this encounter Nursing Notes Lesli Motley - 02/04/2022 10:56 AM CDT Left detailed message that he can take 8:00am or 8:30am on 03/14. OK to book into cons spot but do NOTdouble book. If time slot is taken he must take the other open spot. Leesa Amezquita - 02/04/2022 10:14 AM CDT Has the patient recently had surgery or an injury? Yes. Date of Surgery: January 27, 2022 Type of Surgery: Lumbar spine surgery. How may we help you today? Pt requesting to have his postop appt first thing in the morning due to work commitment. If no appt first thing in morning is not available, could he see someone else, otherwise he will not be able to come in. Please call pt to discuss/advise. Describe your symptoms/concerns: See above. When did the issue start: n/a Have you been seen for this recently?: n/a [Iap Displays Analyst/Appt Center: If yes, please include date and provider.] Is it okay to leave detailed message on your voicemail? yes [Iap Displays Analyst/Appt Center: If this call is after 3 p.m., communicate to patient: If we are not able to get back to you by the end of the day and your symptoms worsen please contact the Careline] documented in this encounter Plan of Treatment Upcoming Encounters Date Type Specialty Care Team Description 08/04/2022 Appointment Orthopedics Delgado Gottlieb MD [address] [place], [place] [address] (Gavi presley) 10/08/2022 Appointment Orthopedics Delgado Gottlieb MD [address] [place] [phone] (Gavi presley) 05/27/2023 Appointment Chemo Therapy/Infusion Services documented as of this encounter Visit Diagnoses Not on filedocumented in this encounter Care Teams Customer Experience Leader Relationship Specialty Start Date End Date Cintia Cobb MD PCP - General Family Practice 09/30/21 documented as of this encounter
--- OUTSIDE RECORDS SUMMARY | 2022-07-29 11:06 | XMS_ITS | Encounter Summary ---
:1960 Author Organization [facility] Address [address], [place] [address] Care Team Providers Name Role Phone Cintia Cobb MD Primary Care Provider [phone] Reason for Visit Auth/Cert Specialty Diagnoses / Procedures Referred By Contact Refer red To Contact Diagnoses Lumbar stenosis with neurogenic claudication Procedures Bilateral Lumbar 2-Lumbar 4 Decompression Foraminotomy Referral ID Status Reason Start Date Expiration Date Visits Requ ested Visits Authorized [id number] 1 1 Encounter Details Date Type Department Care Team Description 01/27/2022 Hospital Encounter [facility] Louis Scherer inal stenosis of Room Everardo Murray MD lumbar region with [address] neurogenic [place], [place] [address] claudication (Primary [id number] [place], [place]) [phone] [place] [address] Social History Tobacco Use Types [...] Sign Reading Time Taken Comments Blood Pressure 144/92 01/27/2022 3:30 PM CDT Pulse 67 01/27/2022 3:30 PM CDT Temperature 36.2 ??C (97.2 ??F) 01/27/2022 2:43 PM CDT Respiratory Rate 16 01/27/2022 3:30 PM CDT Oxygen Saturation 95% 01/27/2022 3:30 PM CDT Inhaled Oxygen Concentration - - [...] told patient that she would page the validation analyst MD. Patient refused because he wanted to [...] Delgado PA-C - 01/27/2022 2:04 PM CDT [facility] Brief Operative Progress Note Surgery Date: [...] planned. See operative note. Didier Delgado PA-C [phone] Everardo Scherer MD - 01/27/2022 12:00 AM CDT NAME: [facility]: [id number] OPERATIVE REPORT DATE OF SURGERY: 01/27/2022 : 1960 SURGEON: EVERARDO SCHERER MD OPTICAL DESIGN ENGINEER: Freddy Delgado PA-C. PREOPERATIVE DIAGNOSIS: Bilateral spinal [...] with 2 and 3 mm Kerr[place]. My assistant women's tennis coach protected the neural elements through the decompression. Subarticular decompression was obtained with decompression ofthe transversing lumbar 3 and 4 nerve roots. Finally formal foraminal decompression was carried out with my assistant women's tennis coach protecting the exiting L2 and 3 nerve [...] and there were no specimens sent. Mr. Freddy Delgado PA-C was used through the entirety of the surgical procedure to safelyretract the neural elements which provided safety for the patient through this surgical procedure. EVERARDO SCHERER MD JNIKHIL/AQS /[id number] documented in this encounter Miscellaneous Notes OR Nursing - Lesli Ng RN - 01/24/2022 3:42 PM CDT Pre-Procedure Assessment, PPA. Patient reports pre-procedure Covid-19 test done in [place] at [facility] on January 24. Results will be available in Care Everywhere. Last HGB 7.6 on 12/31/21; Paged to notify HGB result, dx chronic anemia. Anesthesiologist notified of upcoming procedure and HGB 7.6 with recent hx requiring blood transfusion after emergency [facility] No orders received. History and Physical also noted an open wound to right lower extremity being treated at a wound clinic in [place]; page to Dr. Scherer included FYI regarding wound. When patient received NPO instructions, he stated, Well I've had other surgeries when I have eaten breakfast and didn't have any problems. Machine Bunch Maker attempted to explain potential [facility] is in place for his health and safety; Dr. Scherer's office notified. documented in this encounter Plan of Treatment Upcoming Encounters Date Type Specialty Care Team Description 08/04/2022 Appointment Orthopedics Delgado Gottlieb MD [address] [place], [place] [address] (Gavi rk) 10/08/2022 Appointment Orthopedics Delgado Gottlieb MD [address] [place], [place] [address] (Gavi presley) 05/27/2023 Appointment [...] (01/27/2022 2:25 PM CDT) Analysis Performed At [facility] Time Signature Glucose, Whole 110 70 - 180 01/27/2022 [facility] Blood mg/dL 2:26 PM CDT LABORATORY Performing MT PACU 01/27/2022 [facility] Location 2:26 PM CDT LABORATORY Specimen Anatomical Collection Method Collection Time Receive d Time (Source) Location / / Volume Laterality Blood 01/27/2022 2:25 PM 2 2:26 CDT PM CDT Everardo Scherer MD LAB_1 Performing Organization Address [facility]/ZIP Code Phon e Number [facility] [address] [place] [address] Antibody Screen (01/27/2022 11:46 AM CDT) Patholo gist Method Time Signature Antibody Screen Negative 01/27/2022 [facility] Interpretation 12:50 PM CDT BLOOD BANK Specimen Anatomical Collection Method / Collection Time Recei shahid Time (Source) Location / Volume Laterality Blood Venipuncture / 01/27/2022 11:46 2 Unknown AM CDT 11:51 AM CDT Efra Javier MD LAB_1 Performing Organization Address [facility] Phon e Number [facility] [address] [place] [address] Blood Type (01/27/2022 11:46 AM CDT) P athologist Signature ABO A 01/27/2022 [facility] 12:35 PM CDT BLOOD BANK RH Positive 01/27/2022 [facility] 12:35 PM CDT BLOOD BANK Specimen Anatomical Collection Method / Collection Time Recei shahid Time (Source) Location / Volume Laterality Blood Venipuncture / 01/27/2022 11:46 2 Unknown AM CDT 11:51 AM CDT Efra Javier MD LAB_1 Performing Organization Address [facility] Phon e Number [facility] [address] [place] [address] Glucose, Whole Blood POCT (01/27/2022 10:53 AM CDT) Analysis Performed At Patho logist Time Signature Glucose, Whole 105 70 - 180 01/27/2022 [facility] Blood mg/dL 10:54 AM CDT LABORATORY Performing MT SURG 01/27/2022 [facility] Location 10:54 AM CDT LABORATORY Specimen Anatomical Collection Method Collection Time Receive d Time (Source) Location / / Volume Laterality Blood 01/27/2022 10:53 01/27/2022 AM CDT 10:54 AM CDT Everardo Scherer MD LAB_1 Performing Organization Address City/State/ZIP Code Phon e Number [facility] [address] [place] [address] documented in this encounter Visit Diagnoses Diagnosis Spinal stenosis of lumbar region with ne urogenic claudication - Primary Spinal stenosis, lumbar region, with kaci rogenic claudication documented in this encounter Administered Medications Inactive Administered Medications - up to 3 most recent administrations Medication Order MAR Action Action Date Dose Rate Site bupivacaine-epinephrine Given 01/27/2022 1:39 PM CDT 8 mL (SENSORCAINE) 0.25% -1:904616 injection ONCE PRN, Starting on Thu01/27/22 at 1339, Until Thu01/27/22 at 2056, Intra-op dextrose 5 % infusion at 250 mL/hr, ONCE PRN, Other, for nausea if all other options have failed and patient is not diabetic., Starting on Thu01/27/22 at 0 823, For 1 dose, PACU/Recovery fentaNYL (SUBLIMAZE) injection 25-50 mcg 25-50 mcg, Intravenous, [id number], Other, Moderate to Severe Pain (pain score [...] (DEMEROL) injection 12.5 mg 12.5 mg, Intravenous, [id number], Shiverin g, Starting on Thu01/27/22 at 0823, [...] 1225 (Given - Provider: Abhay Salas APRN, CRNA) 2 g, Intravenous, Administer over 30 Min [...] from Pre-Op - Provider: Abhay Salas APRN, CRNA)1343 (Started - Provider: Abhay Salas APRN, CRNA) [...] pain scores)., Po st-op bupivacaine-epinephrine (SENSORCAINE) 0.25% -1:[id number] injection 1339 (Given - Provider: Everardo Scherer MD) ONCE PRN, Starting on Thu01/27/22 at 1339, Until Thu01/27/22 at 2056, Intra-op dextrose 5 % infusion at 250 mL/hr, ONCE PRN, Other, for nause a if all other options have failed and patient is not diabetic., Starting on Thu01/27/22 at 0823, For 1 dose, PACU/Recovery fentaNYL (SUBLIMAZE) injection 25-50 mcg 25-50 mcg, Intravenous, [id number], Other, Moderate to Severe Pain (pain score [...] (DEMEROL) injection 12.5 mg 12.5 mg, Intravenous, [id number], Shiverin g, Starting on Thu01/27/22 at 0823, [...] PACU/Recovery documented in this encounter Care Teams Landscape Architecture Teacher Relationship Specialty Start Date End Date Cintia Cobb MD PCP - General Family Practice 09/30/21 documented as of this encounter
--- OUTSIDE RECORDS SUMMARY | 2022-07-29 11:06 | XMS_ITS | Encounter Summary ---
:1960 Author Organization [facility] Address [address], [place] [address] Care Team Providers Name Role Phone Cintia Cobb MD Primary Care Provider [phone] Encounter Details Date Type Department Care Team Description 01/27/2022 Orders Only HIM DEPARTMENT Provider, Aguilar hernandez MD Interface provid er interface provider, DREW [id number] Social History Tobacco Use Types Packs/Day Years [...] 08/04/2022 Appointment Orthopedics Delgado Gottlieb MD [address] [place], [place] [address] (Gavi presley) 10/08/2022 Appointment Orthopedics Delgado Gottlieb MD [address] [place], [place] [address] (Gavi presley) 05/27/2023 Appointment Chemo Therapy/Infusion Services documented as of this encounter Procedures Procedure Name Priority Date/Time Associated Diagnosis Comme nts EKG 01/27/2022 Results for thi s procedure are in the resu lts section. documented in this encounter Results EKG (01/27/2022) Narrative This result has an attachment that is no t available. Interface Provider EKG documented in this encounter Visit Diagnoses Not on filedocumented in this encounter Care Teams Watcher Automat Long Goods Relationship Specialty Start Date End Date Cintia Cobb MD PCP - General Family Practice 09/30/21 documented as of this encounter
--- OUTSIDE RECORDS SUMMARY | 2022-07-29 11:06 | XMS_ITS | Encounter Summary ---
:1960 Author Organization [facility] Address [address] [place] [address] Care Team Providers Name Role Phone Cintia Cobb MD Primary Care Provider [phone] Reason for Visit Reason Comments QUESTIONS, GENERAL Encounter Details Date Type Department Care Team Description 01/15/2022 Telephone Specialty Center [address] Delgado Gottlieb MD QUESTIONS, GENERAL Orthopedics Clinic [address] [place] [address] [place] [address] [phone] Social History Tobacco Use Types Packs/Day Years [...] encounter Nursing Notes Rosetta Ye RN - 01/28/2022 10:21 AM CDT Patient was informed of information on note below. He verbalized understanding of information given. Rosetta Ye RN 01/28/2022, 10:21 AM Rosetta Ye RN - 01/23/2022 8:53 AM CDT TR at [phone] and follow the prompt for [facility] and ask to speak with one of the nurses. Rosetta Ye RN 01/23/2022, 8:53 AM Rosetta Ye RN - 01/21/2022 10:06 AM CDT LMTR at [phone] and follow the prompt for [facility] and ask to speak with one of the nurses. Rosetta Ye RN 01/21/2022, 10:06 AM Delgado Gottlieb MD - 01/20/2022 4:26 PM CDT Sorry to hear about this setback. I think it is unlikely that he did anything bad to either the boneor with the hardware. Therefore, he likely caused some sort of soft tissue irritation with this twisting injury. Let's just keep an eye on it for now. I agree with the medication recommendations and that he should still be icing regularly. We can take a closer look when he comes back in February if it is still bothering him and determine if any further investigation is needed. Thanks. Rosetta Ye RN - 01/17/2022 4:37 PM CDT I called and spoke with patient who states that he twisted my knee a week or so ago getting up off the toilet and felt something in my knee. He states 95% of the time it hurts to walk, but it comes and goes with his pain when sitting. He states the pain is at the knee cap and just below. He describes it as a sharp stabbing pain in his left knee. He states there is a little swelling, but not much. He states he has been wearing his compression stocking and his knee brace. He states he is taking the muscle relaxer, which he states does not help along with Tylenol Arthritis 3 tabs twice daily for thepain. He was informed that he could add Ibuprofen up to 2400 mg a day. He is wondering what it couldbe from and what to do for it. He was informed that with any swelling to ice and elevate above heartlevel. He was informed that I would forward the information to the team to get their take and suggestions. He verbalized understanding. He states he is scheduled for back surgery on 01/27/2022. Please advise. Thank you. Rosetta Ye RN 01/17/2022, 4:51 PM Rosetta Ye RN - 01/16/2022 12:47 PM CDT Attempted to contact patient, but voicemail is not set up on cell. Attempted to reach on home phone - [facility] at [phone] and follow the prompt for [facility] and ask to speak with one of the nurses. Rosetta Ye RN 01/16/2022, 12:47 PM Mary Acosta - 01/15/2022 4:14 PM CDT S/p ORIF/IMN supracondylar distal femur fx, DOS: 10/01/2021 Patient said he called about a week ago requesting to talk to Rosetta about his surgery that was already done. He would not disclose anymore info. He said he has not gotten a call back. Patient made aware Rosetta is not available to day and may not be tomorrow. Mary Acosta 01/15/2022, 4:15 PM documented in this encounter Plan of Treatment Upcoming Encounters Date Type Specialty Care Team Description 08/04/2022 Appointment Orthopedics Delgado Gottlieb MD [address] [place] [phone] (Wo rk) 10/08/2022 Appointment Orthopedics Delgado Gottlieb MD [address] [place] [address] (Wo rk) 05/27/2023 Appointment Chemo Therapy/Infusion Services documented as of this encounter Visit Diagnoses Not on filedocumented in this encounter Care Teams Aircraft Landing Gear Inspector Relationship Specialty Start Date End Date Cintia Cobb MD PCP - General Family Practice 09/30/21 documented as of this encounter
--- OUTSIDE RECORDS SUMMARY | 2022-07-29 11:06 | XMS_ITS | Encounter Summary ---
:1960 Author Organization [facility] Address [address] [place] [address] Care Team Providers Name Role Phone Cintia Cobb MD Primary Care Provider [phone] Reason for Visit Reason Comments Medication Questions Reclast Encounter Details Date Type Department Care Team Description 03/26/2022 Telephone [facility] Delmer Valladares, Medica tion Questions CENTER [facility] (Reclast) [address] [place] [address] [place] [address] [place], [place] [phone] (Wo rk) Social History Tobacco Use Types [...] documented as of this encounter Nursing Notes Ying Mendenhall - 03/31/2022 9:45 AM CDT Spoke with Jelena, she is rerouting referral to [facility] Petra Cervantes - 03/26/2022 3:54 PM CDT Patient called and would like to get scheduled for his reclast infusion. [place] Can you please help him get scheduled? Looks like it is approved, but not sure how/where to get him scheduled. Please speak slowly as he usually has a lot of background noise. We can also leave a message with his . Please use - [phone] as the best number to reach the patient. Let me know if I need to send this somewhere else. Thanks! documented in this encounter Plan of Treatment Upcoming Encounters Date Type Specialty Care Team Description 08/04/2022 Appointment Orthopedics Delgado Gottlieb MD [address] [place] [phone] (Wo fernandez) 10/08/2022 Appointment Orthopedics Delgado Gottlieb MD [address] [place], [place] [address] (Wo rk) 05/27/2023 Appointment Chemo Therapy/Infusion Services documented as of this encounter Visit Diagnoses Not on filedocumented in this encounter Care Teams Wet Silk Hanger Relationship Specialty Start Date End Date Cintia Cobb MD PCP - General Family Practice 09/30/21 documented as of this encounter
--- OUTSIDE RECORDS SUMMARY | 2022-07-29 11:06 | XMS_ITS | Encounter Summary ---
:1960 Author Organization [facility] Address [address] [place] [address] Care Team Providers Name Role Phone Cintia Cobb MD Primary Care Provider [phone] Reason for Referral Procedure/Equipment (Routine) - Incomplete Specialty Diagnoses / Procedures Referred By Contact Refer red To Contact Diagnoses Closed fracture of distal end of left femur with routine healing, unspecified fracture morphology, subsequent encounter Delgado Gottlieb MD Procedures XR Femur Lt [address] [place] [address] Referral ID Status Reason Start Date Expiration Date Visits V isits Requested Authorized [id number] Incomplete 04/02/2022 07/02/2023 1 1 Reason for Visit Reason Comments KNEE PAIN Encounter Details Date Type Department Care Team Description 04/02/2022 Office Visit Specialty Center Delgado Gottlieb, Domenica sed fracture of [address] [facility] MD distal end of left [address] [place] [address] [place], [place] healing, unspecified [phone] fracture morphology, subsequent enco unter (Work) [...] as of this encounter Patient Instructions Patient InstructionsNileshGretchen herman, ATC - 04/02/2022 7:40 AM CDT ORTHOPAEDICS DEPARTMENT PHONE NUMBER: [phone] Reason for today's visit: Open reduction internal fixation of left supracondylar distal femur fracture, utilizing both plate and nail fixation. DOS 10/01/2021 Treatment plan: Weight bearing and activities as tolerated If you continue to have pain over the location of the screw tips at the next visit, we may get a CT scan to see what screws are prominent and guide further treatment. [facility]: [phone] Follow up appointments: You will follow up with Dr. Delgado Gottlieb in 6 month(s). X-Rays: You will have left femur X-Rays taken with your next Orthopaedics appointment. Please [id number] minutes early for your appointment. Reason for next Orthopaedics appointment: Open reduction internal fixation of left supracondylar distal femur fracture, utilizing both plate and nail fixation. DOS 10/01/2021 Please stop at the check out desk to schedule a follow up appointment. Use this grid to write down your next appointment. DATE & TIME PROVIDER LOCATION APPT NOTES ( ) : [address] [place] [address] ( ) [facility]: [address] [place] [address] ( ) Other: Open reduction internal fixation of left supracondylar distal femur fracture, utilizing both plate and nail fixation. DOS 10/01/2021 ( ) : [address] [place] [address] ( ) [facility] [address] [place], [place] ( ) Other: If you have any questions about your visit, your symptoms, your medication, your test results or it is not clear what your diagnosis or treatment plan is please contact us at [phone] or send us a secure message via [employer]. You may receive surveys via mail, e-mail or text regarding your visit and recovery. Your feedback isvery important to us. Please take a moment to complete them. If you would like to speak to someone specifically, you may contact the clinic at [phone] and your call will be directed to someone on our leadership team. Thank you for choosing Delgado Gottlieb MD and [facility]. If you need to schedule an appointment, you may call our office at [phone]. We are open Thursday-Thursday 8 am - 5 pm. Discharged by: documented in this encounter Progress Notes Delgado Gottlieb MD - 04/02/2022 7:40 AM CDT Orthopaedic Postoperative Note DOI: 09/30/2021 [...] History of Present Illness: Patient is a 61 y.o. male who presents 6 months from the above procedure. Last visit, he continued to have some pain at the knee that was radiating to the lateral hip, though was overall making good progress. He was continuing physical therapy and was using a cane. He reports that for the past month or so he has been experiencing increased pain at both the medial and lateral knee, and pain that radiates along the lateral thigh. He also notes pain deep at the anterior proximal thigh at times. He notes that the pain at the knee feels like an ice-pick is being driven into the knee, while the pain higher up is more like that of a paper cut. He continues use of the cane head neck surgeon. He is still in physical therapy but this is now more focused on his lower back as he had a surgery on this in January. 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 Appears well nourished and well developed. Psychiatric: Patient's affect is pleasant and appropriate. Patient is cooperative with exam. HEENT: Hearing is intact to spoken word, extraocular movements intact. Respiratory: Breathing is unlabored, regular respirations. Examination of the patient's left lower extremity demonstrates knee and thigh surgical incisions arefully healed, dry, and intact. There is no erythema or drainage noted. Mild diffuse swelling at the knee. He ambulates with a mildly antalgic gait with the assistance of a cane. Palpation: Maximally tender at the distal medial femoral condyle but no palpably prominent screw tips. Mildly tender at the medial joint line and along the lateral femoral plate. There is some lateral knee crepitus over the plate with range of motion. Knee ROM: 5 degrees short of full extension to 110 degrees flexion. 10 degree extensor lag. Sensory: SILT to light touch about the knee and thigh. Vascular: Foot warm, with vascular changes Motor: Fires EHL/FHL/Gastroc/Tib Anterior. Good strength in quads, hamstrings, hip flexors, abductors and adductors. Imaging: Radiographs of the left femur are obtained today. These are personally reviewed by me and demonstrate stable, excellent alignment of his distal femur fracture with implants in unchanged position. Thereis excellent callus formation visible along the medial and posterior cortices. There is continued consolidation along the fracture line. I would not classify this fracture is healed but I explained that the x-ray appearance will continue to evolve and mature over the next 1-2 years. Assessment: Patient is a 61 y.o. male 6 months status post ORIF left supracondylar distal femur fracture, now radiographically healed but still having some persistent pain at the knee that may be due to irritation from the hardware versus intra-articular knee pain. Plan: I discussed with the patient that today's radiographs show maintained alignment of his fracture withexcellent progression of healing. I would expect his pain and function to continue to improve over the next 6-9 months. However, he does seem to have a bit more pain around the knee than I would expectfor this postoperative time point. He reports that much of this pain is anteriorly but on examination he is much more tender medially than anteriorly. Therefore it is possible he has some irritation from the hardware, in particular the medial to interlocking screws for the nail. We discussed the option for hardware removal in the future if this pain persists and advanced imaging confirmed that it wasin fact prominent enough to cause irritation. We ultimately decided that we will continue to monitorthis pain for now but plan for further workup at his next appointment if it continues to be bothersome. 1. Weight bearing: As tolerated on the left lower extremity 2. Activities as tolerated, using a cane as needed 2. May consider CT scan at the next visit to evaluate the distal hardware if he still has persistentpain in the area of the distal screws. Follow-Up: In 6 months checking x-rays - 2 view left femur The patient is in agreement with today's plan and has no further questions. Speech-recognition software was utilized in the writing of this note and therefore the note may contain unintended word substitutions. A total of 30 minutes was spent on this visit in reviewing the chart, interpreting images, seeing and evaluating the patient, discussing treatment, coordinating care, and completing documentation. Delgado Gottlieb MD Spindle Sander [facility] Department of Orthopaedic Surgery [facility] documented in this encounter Plan of Treatment Upcoming Encounters Date Type Specialty Care Team Description 08/04/2022 Appointment Orthopedics Delgado Gottlieb MD [address] [place], [place] [address] (Gavi presley) 10/08/2022 Appointment Orthopedics Delgado Gottlieb MD [address] [place], [place] [address] (Gavi presley) 05/27/2023 Appointment Chemo Therapy/Infusion Services documented as of this encounter Results XR Femur Lt 2 Views (04/02/2022 7:48 AM CDT) Anatomical Region Laterality Modality Lower Extremity, Leg, Thigh Computed Rad iography Specimen (Source) Anatomical Collection Method Collection Time Re ceived Time Location / / Volume Laterality 04/02/2022 7:48 AM CDT Narrative 04/02/2022 7:56 AM CDT EXAM: XR FEMUR LT 2 VIEWS LOCATION: [facility] 435 DATE/TIME: 04/02/2022 7:48 AM INDICATION: Open reduction internal fixa tion of left supracondylar distal femur fracture COMPARISON: 11/27/2021 IMPRESSION: ORIF of a distal left femur fracture. No interval hardware complication. Progressive incomplete healing. Procedure Note Sebas Thompson MD - 04/02/2022Formatti ng of this note might be different from the original. EXAM: XR FEMUR LT 2 VIEWS LOCATION: [facility] 435 DATE/TIME: 04/02/2022 7:48 AM INDICATION: Open [...] r documented in this encounter Care Teams Collar Packer Relationship Specialty Start Date End Date Cintia Cobb MD PCP - General Family Practice 09/30/21 documented as of this encounter
--- OUTSIDE RECORDS SUMMARY | 2022-07-29 11:06 | XMS_ITS | Encounter Summary ---
:1960 Author [facility] Address [address] [place] [address] Care Team Providers Name Role Phone Cintia Cobb MD Primary Care Provider [phone] Encounter Details Date Type Department Care Team Description 01/27/2022 Notes/Orders [facility] Cesar Champagne, [address] [place], [place] [address] [address] [place] [address] [place] [address] (Gavi presley) Social History Tobacco [...] Description 08/04/2022 Appointment Orthopedics Delgado Gottlieb MD [address] [place] [address] (Gavi rk) 10/08/2022 Appointment Orthopedics Delgado Gottlieb MD [address] [place] [address] (Wo rk) 05/27/2023 Appointment Chemo Therapy/Infusion Services documented as of this encounter Visit Diagnoses Not on filedocumented in this encounter Care Teams Senior Software Qa Analyst Relationship Specialty Start Date End Date Cintia Cobb MD PCP - General Family Practice 09/30/21 documented as of this encounter
--- OUTSIDE RECORDS SUMMARY | 2022-07-29 11:06 | XMS_ITS | Encounter Summary ---
:1960 Author Organization [facility] Address [address], [place] [address] Care Team Providers Name Role Phone Cintia Cobb MD Primary Care Provider Reason for Referral Therapies (Routine) - Closed Specialty Diagnoses / Procedures Referred By Contact Refer red To Contact Diagnoses Status post lumbar spine surgery for decompression of spinal cord Freddy Gao PA-C [address] [place], [place] [address] Referral ID Status Reason Start Date Expiration Date Visits Requ ested Visits Authorized [id number] Closed 03/14/2022 03/14/2023 1 1 Scheduling Instructions This order is your clinician's recommend ation for a service and is not an insurance referral which authorizes payment. The r ecommended service and/or location may not be covered by your insurance plan. Please c all the number on your insurance card to find out your specific benefits and coverage for the recommended services and/or location. If you need help scheduling the recommen ded services, please ask your clinician's staff to assist you. Reason for Visit Reason Comments Back Problem Post Op Lumbar decompression 01/27/22 Encounter Details Date Type Department Care Team Description 03/14/2022 Office Visit [facility] Freddy Gao Statu s post lumbar [facility] spine surgery for [address] decompression of [place] [id number] 1 [facility] spinal cord (Primary [phone] [place], [place] Dx) [id number] Social History Tobacco Use Types Packs/Day Years [...] as of this encounter Patient Instructions Patient InstructionsIngris Montez, TOOTIE - 03/14/2022 9:04 AM CDT Thank you for Choosing [facility] for your health care visit today. Didier Gao PA-C Orthopaedic Physician Embedded Software Design Engineer You were provided with an order for physical therapy to focus on core stabilization and stretching and strengthening of lower extremities and postural training Medication Requests: Prescriptions are not filled on weekends or on weekdays after 3:00 PM. For all medication refills: Request a refill using [employer] or contact your pharmacy. What is Know Your Cost? Know Your Cost is a service for patients and patient/members to call and receive personalized cost information and estimates across our care group. The phone number is (COST) Thursday - Thursday 8 AM to 5 PM Advanced Imaging Scheduling: To schedule an MRI, Ultrasound, or Image guided injection at [facility] please call [phone]. To schedule an MRI or CT at a [facility] please call [phone]. [facility] Workers' Compensation [address] [place] [address] (Phone) Email: [email or web address] Release of Information: Radiology/Imaging [address] [place], [place] [address] (Phone) Health Information Management [address] [place], [place] [phone] (Phone) [employer] documented in this encounter Progress Notes Freddy Gao PA-C - 03/14/2022 12:00 AM CDT NAME: LAZ LUNA CSN: [id number] CLINIC NOTE DATE OF SERVICE: 03/14/2022 : 1960 CHIEF COMPLAINT: Followup visit for decompression L2 to L4 with bilateral foraminotomies, Dr. Scherer and I performed on January 27. HPI: Mr. Luna presents today in followup. He is roughly a month and a half out from surgery and doing quite well. He is having some back pain at times, but in general, his preoperative symptoms have substantially improved. He does have some left leg pain, but this is more associated with his ORIF thathe had around his knee from his fracture. Other than that, he is really doing quite well. He is pleased with the outcome of surgery. He denies any fevers, chills, night sweats, bowel or bladder dysfunction, or coordination issues. He does continue to feel little bit stooped forward and has been tryingto work on posture, but has questions about this today. PHYSICAL EXAM: On physical examination today, Mr. Luna ambulates with a non- myelopathic, non-antalgic gait pattern. The left midline paramedian incision about his lumbar spine well healed, free from erythema, edema, or obvious signs of infection. Strength symmetric without deficits, L2-S1 body. ASSESSMENT: Stable postoperative course. PLAN: At this point, Mr. Luna, his [...] if further questions or concerns in the meantime. FREDDY GAO PA-C JCANDELARIO/JOSEPH /[id number] documented in this encounter Plan of Treatment Upcoming Encounters Date Type Specialty Care Team Description 08/04/2022 Appointment Orthopedics Delgado Gottlieb MD [address] [place] [address] (Wo rk) 10/08/2022 Appointment Orthopedics Delgado Gottlieb MD [address] [place], [place] [address] (Gavi presley) 05/27/2023 Appointment Chemo Therapy/Infusion Services Scheduled Referrals Name Type Priority Associated Diagnoses Order S chedule Physical Therapy Referral Routine Status post lumbar spine Ordered: 03/14/2022 surgery for decompression of spinal cord documented as of this encounter Visit Diagnoses Diagnosis Status post lumbar spine surgery for dec ompression of spinal cord - Primary documented in this encounter Care Teams Cue Worker Relationship Specialty Start Date End Date Cintia Cobb MD PCP - General Family Practice 09/30/21 documented as of this encounter
--- OUTSIDE RECORDS SUMMARY | 2022-07-29 11:06 | XMS_ITS | Encounter Summary ---
:[address] [facility] Address [address] [place] [address] Care Team Providers Name Role Phone Cintia Cobb MD Primary Care Provider [phone] Reason for Visit Reason Comments QUESTIONS, GENERAL Infusion Appointment Encounter Details Date Type Department Care Team Description 04/30/2022 Telephone [facility] Delmer Valladares, TONI NEGRETE, [facility] PA-C (Infusion Appointment) [address] [place] [address] [place] [address] [place], [place] [phone] (Wo rk) Social History Tobacco Use Types [...] documented as of this encounter Nursing Notes Loly Kelley RN - 05/01/2022 1:09 PM CDT Referral to [facility] for Reclast infusion in chart. Left message for patient via that he can call [facility] clinic to get scheduled. [phone]. Amanda Damon - 04/30/2022 3:51 PM CDT Has the patient recently had surgery or an injury? No Patient is calling back regarding his referral to the infusion center. He has never been contacted to schedule the appointment and would like to make sure the referral went through. He would [facility] be [facility] but [facility]. Patient is requesting a call back to try and determine why he hasn'treceived a call for scheduling the infusion. If patient does not answer his phone it is best to callhis 's phone as she has voicemail and a detailed message can be left. documented in this encounter Plan of Treatment Upcoming Encounters Date Type Specialty Care Team Description 08/04/2022 Appointment Orthopedics Delgado Gottlieb MD [address] [place], [place] [address] (Gavi presley) 10/08/2022 Appointment Orthopedics Delgado Gottlieb MD [address] [place] [address] (Gavi presley) 05/27/2023 Appointment Chemo Therapy/Infusion Services documented as of this encounter Visit Diagnoses Not on filedocumented in this encounter Care Teams Dry Man Relationship Specialty Start Date End Date Cintia Cobb MD PCP - General Family Practice 09/30/21 documented as of this encounter
--- OUTSIDE RECORDS SUMMARY | 2022-07-29 11:06 | XMS_ITS | Encounter Summary ---
:1960 Author Organization [facility] Address [address] [place] [address] Care Team Providers Name Role Phone Cintia Cobb MD Primary Care Provider [phone] Reason for Visit Auth/Cert Specialty Diagnoses / Procedures Referred By Contact Refer red To Contact Diagnoses Lumbar stenosis with neurogenic claudication Procedures Bilateral Lumbar 2-Lumbar 4 Decompression Foraminotomy Referral ID Status Reason Start Date Expiration Date Visits Requ ested Visits Authorized [id number] 1 1 Encounter Details Date Type Department Care Team Description 01/27/2022 Anesthesia Event Jehovah'S Witness Operating Katya Javier MD Room [address] [place] [address] [id number] [phone] Anesthesia Record Procedure Summary Procedure Name Responsible Anesthesia Start Anesthesia Stop Anesthesiologist Time Time Bilateral Lumbar Efra Javier MD 01/27/22 1209 01/27/22 1 404 2-Lumbar 4 Decompression Foraminotomy (Bilateral) Events Date Time Event Comment 01/27/2022 1121 1209 An Start 1213 An Start Data 1214 MD/DO Present 1215 An Induction 1217 An Intubation 1219 An Magnet Applied 1219 MD/DO Present 1327 MD/DO Present 1355 An Extubation Purposeful movem ent with spontaneous respirations and adequate air exchange. Suctioned and ETT removed. Transfe rred with oxygen to recovery. 1357 An Pacemaker Off 1357 an stop data 1402 MD/DO Present 1404 Care Handoff Note I discussed wi th the receiving nurse and we: 1) Identified the p atient, huynh family member(s) or patient surrogat e 2) Identified the responsible practitioner 3) Reviewed the pertinent medical history 4) Discu ssed the surgical/procedure course 5) Reviewed intr a-op anesthesia management and issues during an esthesia 6) Set expectations for the post-procedu re period 7) Allowed opportunity for questions an d acknowledgement of understanding of report Electr onically signed by Abhay Salas APRN, [facility] 1404 An Stop Care transferred . Name Total midazolam injection 2 mg/2 mL (VERSED) 1 mg fentaNYL injection (SUBLIMAZE) 125 mcg lidocaine 1% PF injection (XYLOCAINE) 100 mg propofol 10 mg/mL IV (DIPRIVAN) 150 mg succinylcholine injection (QUELICIN) 140 mg rocuronium injection (ZEMURON) 75 mg sugammadex injection 100mg/mL (BRIDION) 200 mg ondansetron injection (ZOFRAN) 4 mg dexamethasone 4 mg/mL injection (DECADRON) 10 mg phenylephrine 100 mcg/mL in NaCl 0.9% syringe 400 mcg ceFAZolin (aka ANCEF) 2 g in dextrose 100 ml IVPB 2 g tranexamic acid (CYKLOKAPRON) 1000 mg in sodium chlori de (10 mg/mL) 100 mL 1,000 mg IVPB premix lactated ringers infusion 1,000 mL Agents Name O2 Air Sevoflurane () Identified Agent Name Blood No blood administrations on file. Lines, Drains, and Airways Type Details Placement Removal Incision/Surgical Site 01/27/22; #1; No; 01/27/22 0000 by 1857 by Kwesi, Back; Lower, Medial; Naima Horne inue 02/10/22; 1856 WSIMEON Peripheral IV Placement Date: 01/27/22 1135 by 01/27/22 1617 b y 01/27/22; Placement Vicky Oconnell RN Staab, M elissa T, RN Time: 113; Pre-existing: No; Inserted by?: RN; Size (Gauge): 19 G; Orientation: Posterior, Right; Site Prep: ChloraPrep; Local Anesthetic: Injectable; Insertion attempts: 1; Patient Tolerance: Tolerated well; Removal Date: 01/27/22; Removal Time: 1617; Removal Reason: No longer needed; Catheter Tip: Intact ETT Placement Date: 01/27/22 1217 by 01/27/22 1355 b y 01/27/22; Placement Abhay Salas, Abhay Salas, HAKEEM, Time: 1217; Placed HAKEEM, LUZMA [facility] By: [facility]; Induction Type: Pre-O2, IV; Masking: Easy; ETT Type: ETT; Orientation: Center; Size (mm): 8.0; Depth Secured (cm): 23 cm; Cuffed: Cuffed; Cuff Volume: 5 mL; Intubation Method: DL; Cormack_Lehane Glottic Grade: Grade 1; Glottic View: Cords Open, Cords Clear; Blade: MAC; Blade Size: 3; Insertion attempts: 1; Difficulty: Atraumatic; Adjunct Equipment: Stylet; Placement Verification: BBSE, Positive EtCO2, auscultation; Teeth and Lips Unchanged: Unchanged (ETT taped free of pressure to lips, soft bite block placed after intubation); Removal Date: 01/27/22; Removal Time: 1354 documented in this encounter Social History Tobacco [...] documented as of this encounter Miscellaneous Notes Anesthesia Postprocedure Evaluation - Efra Javier MD - 01/27/2022 2:47 PM CDT [facility] Anesthesia Post-op Note Patient: Ed J Luna Post-Op Diagnosis: Lumbar stenosis with neurogenic claudication Procedure Performed: Procedure(s): Bilateral - Bilateral Lumbar 2-Lumbar 4 Decompression Foraminotomy - Wound Class: 1 CLEAN Anesthesia Type: General Post-op vital signs: Vitals Value Taken Time BP 154/70 01/27/22 1431 Temp 36.2 ??C (97.2 ??F) 01/27/22 1443 Pulse 61 01/27/22 1443 Resp 14 01/27/22 1443 SpO2 97 % 01/27/22 1443 Pain Score: Presence Of Pain: complains of pain/discomfort Preferred Pain Scale: word (verbal ratingpain scale) Pain Rating (0-10): Rest: other (see comments) Pain Rating (0-10): Activity: other (see comments) Post-op assessment: No anesthesia complication. Patient location: PACU Airway Status: Patent Cardiovascular function: Satisfactory Hydration status: Satisfactory PONV: None Level of Consciousness: Awake Fully Participates Postop Assessment: Patient tolerated procedure well. Electronically signed by: Efra Javier MD 01/27/2022 2:47 PM Anesthesia Preprocedure Evaluation - Efra Javier MD - 01/27/2022 11:07 AM CDT [facility] Anesthesia Pre-op Evaluation Procedure: Bilateral Lumbar 2-Lumbar 4 Decompression Foraminotomy, Bilateral HPI: 61 y.o. old male with Lumbar stenosis with neurogenic claudication Last Fluid Intake Time: 729 Last Fluid Intake Date: 01/27/22 Last Food Intake Date: 01/26/22 Last Food Intake Time: 1899 Allergies Allergen Reactions ??? Ciprofloxacin Unknown Swelling ??? Haemophilus Influenzae Gastrointestinal Diarrhea ??? Influenza A (H1n1) Monovalent Vaccine Gastrointestinal Diarrhea ??? Influenza Virus Vaccine Other, see comments Diarrhea Past Medical History: Diagnosis Date ??? Kidney stones Patient Active Problem List Diagnosis ??? Closed fracture of left distal femur (HRC) Past Surgical History: Procedure Laterality Date ??? ELBOW SURGERY Left 08/18/2017 Left ulnar nerve submusculasr transposition ??? PACEMAKER INSERTION Outpatient Medications as of 01/27/2022 Medication Sig ??? allopurinol (ZYLOPRIM) 300 MG tablet ??? B-D 3CC LUER-ARIES SYR 25GX5/8 25G X 5/8 3 ML USE DIRECTED FOR CYANOCOBALAMIN INJECTION ??? furosemide (LASIX) 40 MG tablet ??? ibuprofen (MOTRIN) 200 MG tablet Take 2 Tabs by mouth every 6 hours as needed for Pain (Mild Pain). This may be safely mixed with the prescription pain medications (oxycodone, hydrocodone or tramadol.)?? This may also be safely mixed with acetaminophen. ??? omeprazole (PRILOSEC) 20 MG capsule Take 20 mg by mouth daily. ??? Sennosides (SENOKOT OR) Facility-Administered Medications as of 01/27/2022 Medication Dose Route Frequency ??? dextrose 5 % infusion Intravenous ONCE PRN ??? fentaNYL (SUBLIMAZE) injection 25-50 mcg 25-50 mcg Intravenous Q5MIN PRN ??? hydrALAZINE (APRESOLINE) injection 5 mg 5 mg Intravenous PRN ??? HYDROmorphone (DILAUDID) injection 0.2-0.3 mg 0.2-0.3 mg Intravenous Q10MIN PRN ??? lactated ringers infusion 25 mL/hr Intravenous Continuous ??? lidocaine PF (XYLOCAINE) 1 % injection 0.1-0.3 mL 0.1-0.3 mL Intradermal Once And ??? lidocaine PF (XYLOCAINE) 1 % injection 0.1-0.3 mL 0.1-0.3 mL Intradermal PRN ??? meperidine (DEMEROL) injection 12.5 mg 12.5 mg Intravenous Q5MIN PRN ??? naloxone (NARCAN) injection 0.08 mg 0.08 mg Intravenous PRN ??? naloxone (NARCAN) injection 0.4 mg 0.4 mg Intravenous ONCE PRN ??? ondansetron (ZOFRAN) injection 4 mg 4 mg Intravenous Q4H PRN ??? prochlorperazine (COMPAZINE) injection 5 mg 5 mg Intravenous PRN Labs: Lab Results Component Value Date/Time SODIUM 138 10/16/2021 11:39 AM K 4.7 10/16/2021 11:39 AM CHLORIDE 107 10/16/2021 11:39 AM BUN 26 10/16/2021 11:39 AM CREATININE 1.08 10/16/2021 11:39 AM GLUCOSE 110 (H) 10/16/2021 11:39 AM Lab Results Component Value Date/Time WBC 8.3 10/16/2021 11:39 AM HGB 5.9 (LL) 10/16/2021 11:39 AM HCT 21.7 (L) 10/16/2021 11:39 AM PLTS 305 10/16/2021 11:39 AM INR (no units) Date Value 09/30/2021 1.1 Blood Bank: ABO (no units) Date Value 09/30/2021 A Antibody Screen Interpretation (no units) Date Value 09/30/2021 Negative EKG: Date of last EK09/30/21 Ecg 12-Lead Routine (MUSE) Result Value Ref Range Ventricular Rate 64 BPM Atrial Rate 64 BPM P-R Interval 448 ms QRS Duration 176 ms QT 466 ms QTc 480 ms R Atwood -89 degrees T Atwood 68 degrees Physical Exam: BP (!) 145/76 Pulse 78 Resp 16 Ht 6' Wt 80.7 kg (178 lb) SpO2 98% BMI 24.14 kg/m?? Assessment/Plan: Review of Systems NPO Status: Acceptable. Patient does not have GERD. The patient denies alcohol use. Patient denies any recent URI. History of PONV: No. History of motion sickness: No. Patient denies any personal or family history of anesthesia complications (PONV). Exam Mental Status: Other (See Comment) (Patient's baseline mental status). Mallampati score: II (Two). Mouth opening: Normal Thyromental Distance: > 3 finger breadths and Normal Neck Extension: Full Neck Circumference > 40 cm?: No Current airway assessment:Normal Dentition: Age appropriate. Cardiac Exam: Other (See comment) (Patient's baseline rate and rhythm). Respiratory Exam: Breath sounds clear to auscultation Assessment ASA Status: 3 . Plan Anesthesia type: General and ETT (see below) Induction: Intravenous Maintenance: Balanced PONV Risk Score Adult: 1 PONV Prophylaxis (planned): Ondansetron and Other (See comment) (Dexamethasone PRN if normoglycemic;Intravenous Fluid Hydration) Anesthetic plan, risks, benefits and alternatives discussed with: Patient or Book Solicitor agree tothe anesthesia treatment plan. ANESTHESIA PREOP EVALUATION Ed Jim Luna is a 61 y.o. male who presents for Procedure(s): Bilateral Lumbar 2-Lumbar 4 Decompression Foraminotomy Plan is General with an endotracheal tube Pertinent risks, benefits, available alternatives, and the anesthetic plan were discussed with patient, family, and/or patient's enrollment representative. All questions were answered and an understanding of our conversation was expressed. There was an agreement to proceed. The patient and/or their enrollment representative were notified about the potential risks of damage to the lips, teeth, dental devices, mouth and airway. H&P Reviewed and Patient examined, no change observed IV access Antibiotics per surgery Electronically signed by: Efra Javier MD 01/27/2022 11:07 AM documented in this encounter Plan of Treatment Upcoming Encounters Date Type Specialty Care Team Description 08/04/2022 Appointment Orthopedics Delgado Gottlieb MD [address] [place], [place] [address] (Wo rk) 10/08/2022 Appointment Orthopedics Delgado Gottlieb MD [address] [place] [phone] (Wo rk) 05/27/2023 Appointment Chemo Therapy/Infusion Services documented as of this encounter Visit Diagnoses Not on filedocumented in this encounter Administered Medications Inactive Administered Medications - up to 3 most recent administrations Medication Order MAR Action Action Date Dose Rate Site ceFAZolin (aka ANCEF) 2 g in Given 01/27/2022 12:25 PM CDT 2 g dextrose 100 ml IVPB 2 g, Intravenous, Administer over 30 Minutes, ONCE, On Thu01/27/22 at 1145, For 1 dose, Infuse within 60 minutes prior to incision. Re-dose 1 gram IV every 4 hours after initial dose until incision closed. Re-dose if more than 1.5 L of blood loss. Pharmacy may adjust for renal insufficiency., Pre-op dexamethasone (DECADRON) injection Given 01/27/2022 12:31 PM CDT 10 mg Intravenous, Starting on Thu01/27/22 at 1231, Until Thu01/27/22 at 1404 fentaNYL (SUBLIMAZE) injection Given 01/27/2022 1:08 PM CDT 25 mcg Intravenous, Starting on Thu01/27/22 at 1215, Until Thu01/27/22 at 1404 Given 01/27/2022 12:15 PM CDT 100 mcg lactated ringers infusion Started 01/27/2022 1:43 PM [...] PF (XYLOCAINE) 1 % injection Given 01/27/2022 12:15 PM CDT 100 mg Intravenous, Starting on Thu01/27/22 at 1215 midazolam (VERSED) injection Given 01/27/2022 12:09 PM CDT 1 mg Intravenous, Starting on Thu01/27/22 at 1209, Until Thu01/27/22 at 1404 ondansetron (ZOFRAN) injection Given 01/27/2022 1:40 PM CDT 4 mg Intravenous, Starting on Thu01/27/22 at 1340, Until Thu01/27/22 at 1404 phenylephrine-NaCl 0.9% (KANA-SYNEPHRINE) Given 01/27/2022 1:14 P M CDT 100 mcg injection Intravenous, Starting on Thu01/27/22 at 1215, Until Thu01/27/22 at 1404 Given 01/27/2022 1:00 PM CDT 100 mcg Given 01/27/2022 12:54 PM CDT 100 mcg propofol (DIPRIVAN) 10 mg/mL injection Given 01/27/2022 12:15 PM CDT 150 mg Intravenous, Starting on Thu01/27/22 at 1215, Until Thu01/27/22 at 1404 rocuronium (ZEMURON) injection Given 01/27/2022 1:30 PM CDT 5 mg Intravenous, Starting on Thu01/27/22 at 1215, Until Thu01/27/22 at 1404 Given 01/27/2022 1:08 PM CDT 10 mg Given 01/27/2022 12:45 PM CDT 10 mg succinylcholine (QUELICIN) injection Given 01/27/2022 12:15 PM CDT 140 mg Intravenous, Starting on Thu01/27/22 at 1215, Until Thu01/27/22 at 1404 sugammadex (BRIDION) injection Given 01/27/2022 1:48 PM CDT 200 mg Intravenous, Starting on Thu01/27/22 at 1348, Until Thu01/27/22 at 1404 tranexamic acid (CYKLOKAPRON) 1000 mg in Given 01/27/2022 1:40 P M CDT 1,000 mg sodium chloride 0.9% (10 mg/mL) 100 mL IVPB premix Intravenous, Starting on Thu01/27/22 at 1340, Until Thu01/27/22 at 1404 documented in this encounter 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
--- OUTSIDE RECORDS SUMMARY | 2022-07-29 11:06 | XMS_ITS | Encounter Summary ---
:1960 Author Organization [employer] Address [address] [place] [address] Care Team Providers Name Role Phone Cintia Cobb MD Primary Care Provider [phone] Reason for Visit Reason Comments QUESTIONS, GENERAL Encounter Details Date Type Department Care Team Description 01/28/2022 Telephone [facility] Cesar Champagne, QUESTIONS, GENERAL [address] [place], [place] [address] [address] [place], [place] [phone] [place] [phone] (Wo rk) Social History Tobacco Use [...] this encounter Nursing Notes Lesli Motley - 01/28/2022 2:25 PM CDT Spoke with patient regarding off work status and will work with [facility] to assist in getting him his off work note. He had questions regarding his procedure as well as a brace he spoke with Dr. Scherer about the curving in his shoulder area to help straighten his back. Didier, do you have time to speak with him regarding his procedure? I see you were assisting in his surgery and he would feel best speaking directly to you. He sounds like he's doing well but just wantedto discuss. Alysa Winter - 01/28/2022 12:20 PM CDT ED had surgery yesterday at [facility]. He states he did not receive any information regarding his surgery, no paperwork, questions were not answered by staff. He is not happy and asked to speak to Lesli. documented in this encounter Plan of Treatment Upcoming Encounters Date Type Specialty Care Team Description 08/04/2022 Appointment Orthopedics Delgado Gottlieb MD [address] [place] [phone] (Gavi presley) 10/08/2022 Appointment Orthopedics Delgado Gottlieb MD [address] [place], [place] [phone] (Gavi presley) 05/27/2023 Appointment Chemo Therapy/Infusion Services documented as of this encounter Visit Diagnoses Not on filedocumented in this encounter Care Teams Refined Syrup Operator Relationship Specialty Start Date End Date Cintia Cobb MD PCP - General Family Practice 09/30/21 documented as of this encounter
--- OUTSIDE RECORDS SUMMARY | 2022-07-29 11:07 | XMS_ITS | Encounter Summary ---
:1960 Author Organization [facility] Address [address] [address] Care Team Providers Name Role Phone Cintia Cobb MD Primary Care Provider [phone] Encounter Details Date Type Department Care Team Description 10/16/2021 Lab Visit [facility] [address] Low bone density Laboratory [address] [place] [address]. [place] [address] Social History Tobacco Use Types Packs/Day Years [...] 08/04/2022 Appointment Orthopedics Delgado Gottlieb MD [address] [place], [place] [phone] (Gavi presley) 10/08/2022 Appointment Orthopedics Delgado Gottlieb MD [address] [place], [place] [address] (Gavi presley) 05/27/2023 Appointment Chemo Therapy/Infusion Services documented as of this encounter Procedures Procedure Name Priority Date/Time Associated Comments Diagnosis CBC AND DIFFERENTIAL Routine 10/16/2021 11:39 Low bone density Results for this PANEL AM HAND II BLOCKER procedure are i n the results section. VITAMIN D 25-HYDROXY, Routine 10/16/2021 11:39 Low bone densit y Results for this TOTAL AM [facility] II BLOCK[facility] procedure are i n the results section. INTACT PTH Routine 10/16/2021 11:39 Low bone density Results for this AM [facility] II BLOCKER procedure are i n the results section. COMPLETE BLOOD Routine 10/16/2021 11:39 Low bone density Resul ts for this COUNT-W/DIFF AM [facility] II [facility] procedure are i n the results section. COMP METABOLIC PANEL Routine 10/16/2021 11:39 Low bone density Results for this AM HAND II BLOCKER procedure are i n the results section. TSH, SENSITIVE Routine 10/16/2021 11:39 Low bone density Resul ts for this AM [facility] II [facility] procedure are i n the results section. documented in this encounter Results (ABNORMAL) Complete Blood Count-W/Diff (10/16/2021 11:39 AM [facility] II [facility]) Analysis Performed At Patho logist Time Signature WBC 8.3 3.5 - 10.5 10/16/2021 [facility] x10(9)/L 2:52 PM [facility] RBC 2.49 (L) 4.32 - 10/16/2021 [facility] 5.72 2:52 PM [facility] x10(12)/L Hemoglobin 5.9 (LL) 13.5 - 10/16/2021 [facility] 17.5 g/dL 2:52 PM [facility] HCT 21.7 (L) 38.8 - 10/16/2021 [facility] 50.0 % 2:52 PM [facility] MCV 87.1 80.0 - 10/16/2021 [facility] 100.0 fL 2:52 PM [facility] MCH 23.7 (L) 27.6 - 10/16/2021 [facility] 33.3 pg 2:52 PM [facility] MCHC 27.2 (L) 31.5 - 10/16/2021 [facility] 35.2 g/dL 2:52 PM [facility] RDW 20.4 (H) 11.9 - 10/16/2021 [facility] 15.5 % 2:52 PM [facility] Platelets 305 150 - 450 10/16/2021 [facility] x10(9)/L 2:52 PM [facility] Automated NRBC 0 <=0 /100 10/16/2021 [facility] WBC 2:52 PM [facility] Neutrophil 6.8 1.7 - 7.0 10/16/2021 [facility] Absolute 10(9)/L 2:52 PM [facility] Lymphocyte 0.9 (L) 1.0 - 4.8 10/16/2021 [facility] Absolute 10(9)/L 2:52 PM [facility] Monocytes 0.5 0.2 - 0.9 10/16/2021 [facility] Absolute 10(9)/L 2:52 PM [facility] Eosinophil 0.1 0.0 - 0.5 10/16/2021 [facility] Absolute 10(9)/L 2:52 PM [facility] Basophil 0.0 0.0 - 0.3 10/16/2021 [facility] Absolute 10(9)/L 2:52 PM [facility] Immature Gran % 1.0 (H) 0.0 - 0.5 10/16/2021 [facility] % 2:52 PM [facility] Specimen Anatomical Collection Method / Collection Time Recei shahid Time (Source) Location / Volume Laterality Blood Venipuncture / 10/16/2021 11:39 2 Unknown AM [facility] 11:39 AM [facility] II [facility] Delgado Gottlieb MD LAB_1 Performing Organization Address City/State/ZIP Code Phon e Number [address] [address] VITAMIN D 25-HYDROXY, TOTAL (V77.99) (10/16/2021 11:39 AM HAND II BLOCKER) [facility] Method Time Signature Vitamin D, 69 30 - 80 10/16/2021 [facility] 25-OH, Total ng/mL 3:06 PM [facility] Specimen Anatomical Collection Method / Collection Time Recei shahid Time (Source) Location / Volume Laterality Blood Venipuncture / 10/16/2021 11:39 2 Unknown AM [facility] II BLOCK[facility] 11:39 AM [facility] II BLOCK[facility] Delgado Gottlieb MD LAB_1 Performing Organization Address City/State/ZIP Code Phon e Number [facility] [address] [address] TSH, SENSITIVE (10/16/2021 11:39 AM HAND II BLOCKER) [facility] Method Time Signature TSH, Sensitive 1.10 0.30 - 10/16/2021 [facility] 4.50 3:10 PM [facility] uIU/mL Specimen Anatomical Collection Method / Collection Time Recei shahid Time (Source) Location / Volume Laterality Blood Venipuncture / 10/16/2021 11:39 2 Unknown AM [facility] II BLOCKER 11:39 AM [facility] II BLOCKER Delgado Gottlieb MD LAB_1 Performing Organization Address City/[facility]/ZIP Code Phon e Number [facility]AL [facility] [address] [address] (ABNORMAL) Intact PTH (10/16/2021 11:39 AM HAND II BLOCKER) athologist Signature Intact PTH 107 (H) 10 - 100 10/16/2021 [facility] pg/mL 2:37 PM [facility] Specimen Anatomical Collection Method / Collection Time Recei shahid Time (Source) Location / Volume Laterality Blood Venipuncture / 10/16/2021 11:39 2 Unknown AM HAND II BLOCKER 11:39 AM [facility] II BLOCKER Delgado Gottlieb MD LAB_1 Performing Organization Address City/State/ZIP Code Phon e Number [address] [address] (ABNORMAL) Comp Metabolic Panel (10/16/2021 11:39 AM HAND II BLOCKER) [facility] Method Time Signature Sodium 138 136 - 145 10/16/2021 [facility] mmol/L 2:58 PM [facility] Potassium 4.7 3.5 - 5.1 10/16/2021 [facility] mmol/L 2:58 PM [facility] Chloride 107 98 - 109 10/16/2021 [facility] mmol/L 2:58 PM [facility] CO2 21 20 - 29 10/16/2021 [facility] mmol/L 2:58 PM [facility] Anion Gap 10 7 - 16 10/16/2021 [facility] mmol/L 2:58 PM [facility] Calcium 9.0 8.4 - 10/16/2021 [facility] 10.4 2:58 PM [facility] mg/dL BUN 26 7 - 26 10/16/2021 [facility] mg/dL 2:58 PM [facility] Creatinine 1.08 0.73 - 10/16/2021 [facility] 1.18 2:58 PM [facility] mg/dL GFR, Estimated >60 >60 10/16/2021 [facility] mL/min/1. 2:58 PM [facility] 73m2 Alkaline 79 40 - 150 10/16/2021 [facility] Phosphatase U/L 2:58 PM [facility] AST (SGOT) 12 10 - 40 10/16/2021 [facility] U/L 2:58 PM [facility] ALT (SGPT) 11 0 - 55 10/16/2021 [facility] U/L 2:58 PM [facility] C[facility] Bilirubin, 0.5 0.2 - 1.2 10/16/2021 [facility] Total mg/dL 2:58 PM [facility] Protein, Total 6.1 (L) 6.4 - 8.3 10/16/2021 [facility] g/dL 2:58 PM [facility] II [facility] C[facility] Albumin 3.4 (L) 3.5 - 5.0 10/16/2021 [facility] g/dL 2:58 PM [facility] II [facility] C[facility] Glucose 110 (H) 70 - 100 10/16/2021 [facility] mg/dL 2:58 PM [facility] C[facility] Comment: The given reference range is fo r the fasting state. Non-fasting reference range for glucose is 70 - 180 mg/dL. Hours Fasting 4 10/16/2021 2:58 PM [facility] II BLOCKER [facility] [address] LABORATORY Specimen Anatomical Collection Method / Collection Time Recei shahid Time (Source) Location / Volume Laterality Blood Venipuncture / 10/16/2021 11:39 2 Unknown AM HAND II BLOCKER 11:39 AM [facility] II BLOCKER Delgado Gottlieb MD LAB_1 Performing Organization Address City/State/ZIP Code Phon e Number [facility] C[facility]AL LAB [address] LABORATORY documented in this encounter Visit Diagnoses Diagnosis Low bone density documented in this encounter Care Teams Post Secondary Professional Relationship Specialty Start Date End Date Cintia Cobb MD PCP - General Family Practice 09/30/21 documented as of this encounter
--- OUTSIDE RECORDS SUMMARY | 2022-07-29 11:07 | XMS_ITS | Encounter Summary ---
:1960 Author Organization [facility] Address [address], [place] [address] Care Team Providers Name Role Phone Cintia Cobb MD Primary Care Provider [phone] Reason for Visit Procedure/Equipment (Routine) - Incomplete Specialty Diagnoses / Procedures Referred By Contact Refer red To Contact Diagnoses Closed fracture of distal end of left femur with routine healing, unspecified fracture morphology, subsequent encounter Delgado Gottlieb MD Procedures XR Femur Lt [address] [place] [address] Referral ID Status Reason Start Date Expiration Date Visits V isits Requested Authorized [id number] Incomplete 11/27/2021 02/26/2023 1 1 Encounter Details Date Type Department Care Team Description 11/27/2021 Ancillary [facility] Delgado Gottlieb Closed frac ture of Procedure Specialty [facility] Donnell Murray MD distal end of left Radiology [address] femur with routine [address] healing, [place] [address] [place], [place] unspecified [phone] fracture [phone] morphology, (Work) subsequent [phone] encounter (Fax) Social History Tobacco Use Types [...] 08/04/2022 Appointment Orthopedics Delgado Gottlieb MD [address] [place], [place] [address] (Wo rk) 10/08/2022 Appointment Orthopedics Delgado Gottlieb MD [address] [place], [place] [address] (Wo rk) 05/27/2023 Appointment Chemo Therapy/Infusion Services documented as of this encounter Procedures Procedure Name Priority Date/Time Associated Diagnosis Comme nts XR FEMUR LT 2 VIEWS Routine 11/27/2021 9:59 AM Closed fracture of Results for this CDT distal end of left procedure are in femur with routine the resul ts healing, unspecified section . fracture morphology, subsequent encounter documented in this encounter Results XR Femur Lt 2 Views (11/27/2021 9:59 AM CDT) Anatomical Region Laterality Modality Lower Extremity, Leg, Thigh Computed Rad iography Specimen (Source) Anatomical Collection Method Collection Time Re ceived Time Location / / Volume Laterality 11/27/2021 9:59 AM CDT Narrative 11/27/2021 10:20 AM CDT EXAM: XR FEMUR LT 2 VIEWS LOCATION: [facility] [address] DATE/TIME: 11/27/2021 9:59 AM INDICATION: Open reduction internal fixa tion of left supracondylar distal femur fracture COMPARISON: 10/16/2021 IMPRESSION: ORIF of the left femur. No n ew hardware complication. Incomplete healing of a distal left femur fracture. Procedure Note Sebas Thompson MD - 11/27/2021Formatti ng of this note might be different from the original. EXAM: XR FEMUR LT 2 VIEWS LOCATION: [facility] [address] DATE/TIME: 11/27/2021 9:59 AM INDICATION: Open reduction internal fixa tion of left supracondylar distal femur fracture COMPARISON: 10/16/2021 IMPRESSION: ORIF of the left femur. No n ew hardware complication. Incomplete healing of a distal left femur fracture. Delgado Gottlieb MD RAD GD documented in this encounter Visit Diagnoses Diagnosis Closed fracture of distal end of left fe mur with routine healing, unspecified fracture morphology, subsequent encounte r documented in this encounter Care Teams Claim Examiner Relationship Specialty Start Date End Date Cintia Cobb MD PCP - General Family Practice 09/30/21 documented as of this encounter
--- OUTSIDE RECORDS SUMMARY | 2022-07-29 11:07 | XMS_ITS | Encounter Summary ---
:1960 Author Organization [facility] Address [address] [place] [address] Care Team Providers Name Role Phone Cintia Cobb MD Primary Care Provider [phone] Reason for Visit Reason Comments QUESTIONS, GENERAL Encounter Details Date Type Department Care Team Description 12/23/2021 Telephone [facility] Cesar Champagne, QUESTIONS, GENERAL [address] [place], [place] [address] [address] [place] [phone] (Wo rk) Social History Tobacco Use [...] documented as of this encounter Nursing Notes Ita Mack PA-C - 12/23/2021 4:20 PM CDT Can offer tizanidine or cyclobenzaprine. All muscle relaxers can relax the bladder as well and may contribute to urinary issues. 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 Continue to monitor for bladder and bowel changes and present to ED if any retention or incontinence increases. Ita Mack PA-C 4:22 PM 12/23/2021 Nathalia Stokes RN - 12/23/2021 3:29 PM CDT Spoke to patient for 25+ minutes. He is calling requesting something to help with his low back aching pain and stiffness. Was given Methocarbamol 500mg from his knee provider, but feels this amount is not helping him much, and he would like to try a different/stronger muscle relaxant. He reports continued intermittent urinary dribbling. With driving long distances he is sometimes unable to always make it to the bathroom in time. States he has had this issue on and off for sometime, seems to be a little more frequent in the past several weeks however. Aminata Alexander - 12/23/2021 12:43 PM CDT Patient states the information he is asking about is classified and that he only wants to speak to Nathalia about it. Nathalia Stokes RN - 12/23/2021 11:11 AM CDT Tried to reach patient, no answer, no VM option. CC - please ask patient what questions he has (if he is willing). Amanda Damon - 12/23/2021 9:24 AM CDT Has the patient recently had surgery or an injury? No Patient has some questions and is requesting a call back from the nurse. Declined to give to telegraphic typewriter installer to put in the message. Patient does not have voicemail. documented in this encounter Plan of Treatment Upcoming Encounters Date Type Specialty Care Team Description 08/04/2022 Appointment Orthopedics Delgado Gottlieb MD [address] [place], [place] [address] (Gavi rk) 10/08/2022 Appointment Orthopedics Delgado Gottlieb MD [address] [place], [place] [address] (Gavi presley) 05/27/2023 Appointment Chemo Therapy/Infusion Services documented as of this encounter Visit Diagnoses Not on filedocumented in this encounter Care Teams Shop Lead Relationship Specialty Start Date End Date Cintia Cobb MD PCP - General Family Practice 09/30/21 documented as of this encounter
--- OUTSIDE RECORDS SUMMARY | 2022-07-29 11:07 | XMS_ITS | Encounter Summary ---
:1960 Author Organization [facility] Address [address] [place] [address] Care Team Providers Name Role Phone Cintia Cobb MD Primary Care Provider [phone] Reason for Visit Reason Comments QUESTIONS, GENERAL Encounter Details Date Type Department Care Team Description 10/08/2021 Telephone Specialty Center [address] Delgado Gottlieb MD QUESTIONS, GENERAL Orthopedics Clinic [address] [place] [address] [place] [address] [phone] Social History Tobacco Use Types Packs/Day Years [...] encounter Nursing Notes Rosetta Ye RN - 10/08/2021 3:17 PM CST Patient is calling stating that he is going to change his dressing and is wondering how much of it should come off. Wound Care/Showering: A dressing must be kept in place for 5 days after surgery. After 5 days, you may remove the dressingand leave the incision open to air, unless there is drainage from the incision. If you prefer, you may keep your incision covered with a dry dressing (gauze and tape) until your follow up appointment. Your incision may have steri-strips (short pieces of white tape) in addition to the sutures/chapis. These should be left in place until they fall off or removed at your office visit. Under no circumstance are you allowed to pick or scratch your incision. Please contact your surgeon's office if you notice followin) significant cloudy, blood or malodorous drainage from the incision, 2) excessive warmth and redness around the incision. Please keep your incision dry until your follow up appointment.If it is not possible to cover the incision or keep the incision dry during showering due to location of the incision then we recommend sponge baths until your follow up appointment. I reviewed the above information with patient and his Julissa. They verbalized understanding. He states he won't be showering as he isn't going to go down the 13 stairs to the basement. Rosetta Ye RN 10/08/2021, 3:24 PM /HOSTESS HEAD documented in this encounter Plan of Treatment Upcoming Encounters Date Type Specialty Care Team Description 08/04/2022 Appointment Orthopedics Delgado Gottlieb MD [address] [place] [phone] (Gavi presley) 10/08/2022 Appointment Orthopedics Delgado Gottlieb MD [address] [place] [phone] (Gavi presley) 05/27/2023 Appointment Chemo Therapy/Infusion Services documented as of this encounter Visit Diagnoses Not on filedocumented in this encounter Care Teams Mogul Operator Relationship Specialty Start Date End Date Cintia Cobb MD PCP - General Family Practice 09/30/21 documented as of this encounter
--- OUTSIDE RECORDS SUMMARY | 2022-07-29 11:07 | XMS_ITS | Encounter Summary ---
:1960 Author Organization [facility] Address [address] [place] [address] Care Team Providers Name Role Phone Cintia Cobb MD Primary Care Provider [phone] Reason for Visit Reason Comments QUESTIONS, GENERAL Encounter Details Date Type Department Care Team Description 11/06/2021 Telephone Specialty Center [address] Delgado Gottlieb MD QUESTIONS, GENERAL Orthopedics Clinic [address] [place] [address] [place] [address] [phone] Social History Tobacco Use Types Packs/Day Years [...] encounter Nursing Notes Rosetta Ye RN - 11/07/2021 2:26 PM CST Patient was informed of information on note below. He verbalized understanding of information given. Rosetta Ye RN 11/07/2021, 2:26 PM NT ASSOCIATE Rosetta Ye RN - 11/07/2021 10:04 AM CST [facility] at [phone] and follow the prompt for [facility] and ask to speak with one of the nurses. Rosetta Ye RN 11/07/2021, 10:04 AM Delgado Loyola MD - 11/07/2021 9:36 AM CST Thanks so much for calling this patient back. I agree with your recommendations. The kneecap pain is very normal for his fracture and because we made that incision just below the knee cap to place the intramedullary nail. He may have some degree of pain at this location for even 6 months or so but Iwould expect the worst of it to just be the first 3 months. I think icing and physical therapy will be the best things to help it go away. Thanks. Rosetta Parker RN - 11/06/2021 3:59 PM CST Patient is wondering how long it is going to take for the pain to the knee to get better. He states that he has been doing PT. He states that he is using a cane to get around. He states that the pain is to his knee cap. He states he is having pain to the top, middle, and bottom of the knee cap. He He states that he took the wrap off his leg. He states that he stopped icing. He states that he is doingPT 2-3 times a week and is bending to 107 degrees. I reviewed that with any inflammation can come stiffness. He was informed to get back to icing the knee and thigh for 20 minutes every hour and elevate above the level of the heart level while doing so. He was informed that he is going to have peaks and valleys based on what he is doing and how his body is responding to the activity. He was informed that he can also rewrap the leg to assist with any fluid in the leg. Please advise on pain in the knee cap as he is describing and advise. Thank you. Rosetta Ye RN 11/06/2021, 4:24 PM NT ASSOCIATE Davin Diggs - 11/06/2021 3:32 PM CST Pt would like a call back from the care team. He wouldn't give any information on this and states that he will be by his phone for the next 5 minutes. Please call to advise. NT ASSOCIATE Mary Acosta - 11/06/2021 3:30 PM CST Patient said he wants Rosetta to call him back today. He said not tomorrow, not next month, but today. When asked the reason for his call he stated it is personal. He insisted to be put thru to Rosetta and content writer indicated she is not available and would call him back. He said he would hold and content writer said he would get a call back. Freight Service Inspector repeated this three times. Mary Acosta 11/06/2021, 3:32 PM NT ASSOCIATE documented in this encounter Plan of Treatment Upcoming Encounters Date Type Specialty Care Team Description 08/04/2022 Appointment Orthopedics Delgado Gottlieb MD [address] [place], [place] [address] (Gavi presley) 10/08/2022 Appointment Orthopedics Delgado Gottlieb MD [address] [place], [place] [address] (Gavi presley) 05/27/2023 Appointment Chemo Therapy/Infusion Services documented as of this encounter Visit Diagnoses Not on filedocumented in this encounter Care Teams Employment Services Director Relationship Specialty Start Date End Date Cintia Cobb MD PCP - General Family Practice 09/30/21 documented as of this encounter
--- OUTSIDE RECORDS SUMMARY | 2022-07-29 11:07 | XMS_ITS | Encounter Summary ---
:1960 Author Organization [facility] [employer] Address [address] [address] Care Team Providers Name Role Phone Cintia Cobb MD Primary Care Provider [phone] Reason for Visit Reason Comments OSTEOPOROSIS Consult/Transfer Care (Routine) - New Request Specialty Diagnoses / Procedures Referred By Contact Refer red To Contact Diagnoses Low bone density Delgado Gottlieb MD [address] [place] [id number] Referral ID Status Reason Start Date Expiration Date Visits V isits Requested Authorized [id number] New Request 10/16/2021 01/15/2023 1 1 Encounter Details Date Type Department Care Team Description 01/08/2022 Office Visit [facility] Delmer Valladares, [facility] PA-C osteoporosis with [address] [facility] current pathological [place], [place] [address] [place], [place] fracture, initial [phone] encounter (Primary [phone] (Wo rk) Dx) Social History Tobacco Use Types Packs/Day [...] - Inhaled Oxygen Concentration - - Weight 81.6 kg (180 lb) 01/08/2022 7:54 AM CDT pt repor ti Height 182.9 cm (6') 01/08/2022 7:54 AM CDT pt report ed Body Mass Index 24.41 01/08/2022 7:54 AM CDT documented in this encounter Patient Instructions Patient InstructionsCoDelmer goldstein PA-C - 01/08/2022 7:56 AM CDT Bisphosphonate Treatment Protocol What are Bisphosphonates and how do they work? Bisphosphonates are a common group of medications used to treat osteoporosis. They come in many forms, including a once-weekly pill (Fosamax, Boniva, Actonel), once-monthly pill (Boniva), or a once-yearly IV infusion (Reclast). To understand how bisphosphonates work, remember that bone is a living tissue that undergoes a continual process of breakdown and repair. As we age, our bones are broken down at a faster rate than theycan be rebuilt. This causes bone to weaken. Bisphosphonates slow the action of your bone breakdown cells (called osteoclasts). This allows your bone building cells (called osteoblasts) to build stronger bones over time. How Effective are Bisphosphonates at Building Bone Density and Preventing Broken Bones? Bone Density Average 3-year bone density improvement while taking oral and IV bisphosphonates is between +6 to +8% at the spine and +4 to +6% at the hip. Fracture Prevention Oral bisphosphonates (Fosamax) lower your risk of spine fractures by approximately 50% and hip fractures by 30-40%. IV bisphosphonates (Reclast) lower your risk of spine fractures by 70% and hip fractures by 41%. Possible Side Effects Associated with Bisphosphonates Oral Bisphosphonates (Fosamax, Actonel, Boniva) The overall number of reported side effects in those taking oral bisphosphonates was comparable to those taking placebo (calcium and vitamin D only) in clinical trials. Possible side effects include GI upset, muscle or body aches, and low calcium levels (hypocalcemia). Atypical femur fractures (AFF) have been reported in those taking bisphosphonates. The risk is exceptionally rare but will increase with longer use of the medication. Risk factors which predispose to AFF include limb deformity (bowed legs), rheumatoid arthritis, taking oral steroids, and ethnicity. Your risk of an AFF while on treatment is: Less than 2 years of medication: 1-2 per 100,000 More than 8 years of medication: 113 per 100,000 Osteonecrosis of the jaw (ONJ) has also been reported in those taking bisphosphonates. Risk factors include a history of radiation therapy to the neck/jaw region and dental extractions/jaw surgery while on treatment. The risk of ONJ is estimated to be between 1 in 10,000 to 1 in 100,000 while taking oral bisphosphonates. IV Bisphosphonates (Reclast) Reclast has been linked to body aches and flu-like symptoms for 1-2 days following the first infusion. I recommend taking 500mg - 1000mg of acetaminophen (Tylenol) three times per day on the day beforeyour infusion, the day of your infusion, and the day after your infusion. This will reduce your riskof this possible side effect. After your Initial Visit Insurance Prior Authorization Most insurance companies do not require prior authorization for bisphosphonates which come in pill form, including Fosamax, Boniva, and Actonel. Your insurance company may require prior authorization for the once-yearly IV infusion called Reclast. An order for Reclast will be sent to a local infusion center and the prior authorization process will be completed by infusion center staff. You will be contacted by infusion center staff to scheduleyour infusion once the medication is approved. I recommend that you contact your insurance to verify your [id number] expense for all medications, as it may vary between insurance providers. Bone Density I recommend that you have an up-to-date bone density (DXA) scan prior to starting a bisphosphonate. This will serve as your baseline bone density and it will be used for comparison in the future to determine how effective the medication is working. Nutrition I recommend that you consume a well-balanced diet that is rich in whole foods. You should limit processed foods, caffeine, and carbonated beverages. Calcium: 1200mg daily through food and supplements. Vitamin D: 1752-6546 IU daily Exercise Aerobic Exercise: Work your way up to 2-3 hours of moderate intensity aerobic exercise each week. Balance Exercise: Incorporate 10-15 minutes of balance exercises several days per week. Consider standing on one foot while brushing your teeth or washing dishes. You can close your eyes to make the exercise more challenging. Yoga and Marcial Chi are also great for balance. Weightbearing Exercise: Progressive resistance strength training is the most effective type of exercise to preserve bone strength. I recommend a free program sponsored by [facility] [facility] called [employer] to Fracture. You can access their recommendations in written and video format online. Infusion Day Diet, Supplements, and Medications You do not need to adjust your daily routine on the day of your infusion. Feel free to eat a regulardiet and take your usual medications and nutritional supplements. I recommend taking 500mg - 1000mg of acetaminophen (Tylenol) three times per day on the day before your infusion, the day of your infusion, and the day after your infusion. This will reduce your risk of side effects associated with the infusion. Clothing Since Reclast is administered via and IV in your arm, be sure to wear loose fitting clothing that allows for easy access. Activity Following the Injection You do not have any activity restrictions following your infusion. You may experience soreness at the infusion site for the 1-2 days following the infusion. Consider placing an ice pack on the infusionsite or taking [id number] pain relievers such as acetaminophen as detailed above. Long-Term Care While Taking Bisphosphonates Office Visits 3 Months: You should schedule your first follow up office visit 3 months after starting a new bisphosphonate medication. At this visit, we will update your medical history, discuss your tolerance of the medication, and order updated blood tests. Yearly: You should follow up once yearly while taking a bisphosphonate. At these visits, we will review your medical history, discuss any recent injuries or falls, discuss your tolerance of the medication, and place an order for updated labs and/or bone density scans. Lab Tests 5-7 days: If you have stage 4 or 5 kidney disease, I recommend rechecking certain labs 5-7 days after you start the medication. 3 months: I recommend that everyone taking a bisphosphonate gets updated blood tests 3 months after starting a bisphosphonate. Typical lab tests will include a basic metabolic panel (BMP) and vitamin D. Other lab tests may be needed depending on your medical history. Yearly: I recommend that everyone taking a bisphosphonate gets updated blood tests once-yearly to monitor your tolerance of the medication. Typical lab tests will include a basic metabolic panel (BMP) and vitamin D. Other lab tests may be needed depending on your medical history. Bone Density Scans 1 year: I recommend that you get an updated bone density scan 1 year after starting a new medication. A successful outcome for this scan would be stable or improved bone density numbers. If there is a significant decline in your bone density, we may consider different treatment options. Every 1-2 years: After your initial follow up bone density scan, you will have a bone density scan every 1-2 years while on long-term treatment with a bisphosphonate to monitor your progress. Discontinuation of Bisphosphonates Research indicates that bisphosphonates are safe and effective when taken for a defined period of time. I recommend taking oral bisphosphonates (Fosamax) for 3- 5 years and IV bisphosphonates (Reclast) for 3 years. Taking the medication for longer periods is unlikely to add any additional benefit and may increase your risk of developing side effects. You may be able to stop taking the medication sooner if you significantly lower your risk of suffering a broken bone. Common treatment goals include no fractures over a 3-year period while taking the medication and a bone density T- score greater than -2.0 at all skeletal sites. It is safe to stop taking your medication abruptly. The medication will continue to protect your bones even after it is discontinued, and your bone density should remain stable for several years. It is important to continue to follow up once yearly after you discontinue the medication for re-evaluation. If you have a significant decline in bone density or have a broken bone, treatment may need to be restarted. documented in this encounter Progress Notes Delmer Valladares PA-C - 01/08/2022 8:00 AM CDT Outpatient Bone Health Consult History of Present Illness Laz Luna is a 61 y.o. old male who was referred for a bone health evaluation by Dr. Gottlieb following a recent left distal femur fracture. DOI: 09/30/2021 DOS: 10/01/2021 NICOLETTE: slip and fall on ice, landing directly on the left knee Diagnoses: - Left supracondylar distal femur fracture. Primary indication(s) for Bone Health Evaluation: Established osteopenia/osteoporosis History of low trauma fracture Osteoporosis Treatment History Fosamax- years ago prescribed through [facility] F[facility] Bone Health History The patient has been previously evaluated for osteoporosis. Previous Fracture(s): left distal femur, left intertrochanteric fracture Height Loss: 1-2 inches Other History Family History of Osteoporosis and/or Low Trauma Fracture: Yes - mother Age of Menopause: Not applicable Nutrition Calcium Intake: At least 1200 mg daily Vitamin D Intake: At least 800IU daily Iron History of disordered eating: (protein-calorie malnutrition) Current Level of Activity and Fall Risk Current Level of Physical Activity/Weight Bearing Exercise: Not active (walking less than a mile a day). Number of Falls in Last 12 Months: 1 Use of Ambulatory Aid: Cane Additional Osteoporosis Risk Factors: Social History Tobacco Use ??? Smoking status: Never Smoker ??? Smokeless tobacco: Never Used Substance Use Topics ??? Alcohol use: Not Currently Relevant Medical History: Atrial flutter BPH DM2 Eczema Gastric bypass Relevant Medications: PPI Review of Systems A complete review of systems was performed and is negative except as state above in the HPI. Physical Examination There were no vitals taken for this visit. GENERAL APPEARANCE: Alert and cooperative. No acute distress. HEAD: Normocephalic. Dental Hygeine: unable to assess due to mask EYES: Vision intact to the written word. EARS: Hearing intact to the spoken word. CARDIAC: All 4 extremities appear warm and well perfused. LUNGS: No respiratory distress, no audible wheezing. NEUROLOGICAL: No focal nerve deficit. SKIN: Skin normal color, texture and turgor with no lesions. PSYCHIATRIC: Mood and affect are within normal limits. MUSCULOSKELETAL: -- Moves all 4 extremities symmetrically. -- No joint erythema. -- Ambulates with antalgic gait, uses cane. -- Lower extremity deformity: none -- Spine alignment: kyphotic. Fall Risk Assessment Timed Up and Go: Not performed Imaging & Laboratory DXA Results (12/24/21) Lumbar Spine Vertebrae Included: L2;L4 Bone Mineral Density (gm/cm2): 0.833 T-Score: -2.6 Z-Score: -1.9 ?? Total Hip Bone Mineral Density (gm/cm2): 0.603 (RIGHT) T-Score: -2.8 Z-Score: -2.4 ?? Femoral Neck Bone Mineral Density (gm/cm2): 0.556 T-Score: -2.8 Z-Score: -1.7 ?? FRAX 10 year probability major osteoporotic fracture: 17% 10 year probability hip fracture: 5.4% ?? COMPARISON TO PRIOR STUDY: This is a baseline bone density test (first one at [facility]) ?? VERTEBRAL FRACTURE ASSESSMENT: No vertebral fractures from T11 through L4. Upper thoracic vertebrae are not seen well. Pertinent Lab Results Vitamin D, 25-OH, Total Date Value Ref Range Status 10/16/2021 69 30 - 80 ng/mL Final Intact PTH (pg/mL) Date Value 10/16/2021 107 (H) Calcium (mg/dL) Date Value 10/16/2021 9.0 Hemoglobin (g/dL) Date Value 10/16/2021 5.9 (LL) Normal: 12-17 Creatinine (mg/dL) Date Value 10/16/2021 1.08 GFR, Estimated (mL/min/1.73m2) Date Value 10/16/2021 >60 TSH, Sensitive (uIU/mL) Date Value 10/16/2021 1.10 Alkaline Phosphatase (U/L) Date Value 10/16/2021 79 Procedure Report No procedure performed. Consultation Assessment & Plan 1) Osteoporosis with current pathologic fracture I reviewed the diagnosis and discussed potential long-term sequelae of the disease with the patient.The patient meets [facility] criteria for the clinical diagnosis of osteoporosis based on: -- Low bone mineral density -- FRAX score which exceeds the treatment threshold -- History of low-energy fracture As a result, the patient has an elevated fracture risk based on the clinical risk factors outlined in the HPI above. We reviewed their treatment options, including the pros, cons, risks and benefits ofthe available osteoporosis medications, and they would like to proceed with Reclast. Prior authorization was submitted and the patient was encouraged to contact their insurance to verify cost/benefits.All questions were addressed. Treatment Considerations ??? Gastric bypass surgery ??? History of DM2 ??? Multiple recent fractures General recommendations for healthy bones and fracture prevention: ?? Regular physical activity-- including aerobic, strengthening, and balance exercises. ?? Calcium (1200mg daily) and Vitamin D (2000 IU daily) through diet and/or supplements. ?? Avoid tobacco ?? Moderation of alcohol consumption (not to exceed 2 alcoholic beverages daily) Orders entered at this office visit ?? Lab: reviewed ?? Imaging: reviewed ?? Medication: Reclast Follow-Up: 1 year Delmer Valladares PA-C 01/06/2022, 8:00 PM documented in this encounter Plan of Treatment Upcoming Encounters Date Type Specialty Care Team Description 08/04/2022 Appointment Orthopedics Delgado Gottlieb MD [address] [place], [place] [address] (Wo rk) 10/08/2022 Appointment Orthopedics Delgado Gottlieb MD [address] [place], [place] [address] (Wo rk) 05/27/2023 Appointment Chemo Therapy/Infusion Services documented as of this encounter Visit Diagnoses Diagnosis Age-related osteoporosis with current pa thological fracture, initial encounter - Primary documented in this encounter Care Teams Dredge Pipe Installer Relationship Specialty Start Date End Date Cintia Cobb MD PCP - General Family Practice 09/30/21 documented as of this encounter
--- OUTSIDE RECORDS SUMMARY | 2022-07-29 11:07 | XMS_ITS | Encounter Summary ---
:1960 Author Organization [facility] Address [address], [place] [address] Care Team Providers Name Role Phone Cintia Cobb MD Primary Care Provider [phone] Reason for Visit Procedure/Equipment (Routine) - Closed Specialty Diagnoses / Procedures Referred By Contact Refer red To Contact Diagnoses Low bone density Delgado Gottlieb MD Procedures DXA Bone Density Spine/Hip Inc Vert FX Assess Dxa Bone Density Spine/Hip/Forearm [address] [place] [address] Referral ID Status Reason Start Date Expiration Date Visits Requ ested Visits Authorized [id number] Closed 10/16/2021 01/15/2023 1 1 Encounter Details Date Type Department Care Team Description 12/20/2021 Ancillary Procedure [facility] Bone Density Low bone density [address] [place], [place] [address] Social History Tobacco Use Types Packs/Day Years [...] 08/04/2022 Appointment Orthopedics Delgado Gottlieb MD [address] [place], [place] [address] (Gavi presley) 10/08/2022 Appointment Orthopedics Delgado Gottlieb MD [address] [place], [place] [address] (Gavi presley) 05/27/2023 Appointment Chemo Therapy/Infusion Services documented as of this encounter Procedures Procedure Name Priority Date/Time Associated Diagnosis Comme nts DXA BONE DENSITY Routine 12/20/2021 12:19 PM Low bone density Results for this SPINE/HIP INC VERT CDT procedure are in FX ASSESS the results section. documented in this encounter Results DXA Bone Density Spine/Hip Inc Vert FX Assess (12/20/2021 12:19 PM CDT) Anatomical Region Laterality Modality Spine, Hip Other Specimen (Source) Anatomical Location Collection Method / Collectio n Time Received Time / Laterality Volume Narrative 12/24/2021 8:54 AM CDT CLINIC DXA REPORT Patient Name: ??Ed J Luna Densitometer:Hologic Discovery A (S/N [id number]) [facility] B[facility] 5 OSTEOPOROSIS RISK FACTORS FROM PATIENT Q UESTIONNAIRE: ?? The patient is a 61 y.o.male: Calcium in take is probably not adequate. There is a history of distal femur fract ure (age 61); no known family history of spine fracture; and no known family history of hip fracture. History of gastric bypass. BONE MINERAL DENSITY: Lumbar Spine Vertebrae Included: L2;L4 Bone Mineral Density (gm/cm2): 0.833 T-Score: -2.6 Z-Score: -1.9 Total Hip Bone Mineral Density (gm/cm2): 0.603 (RI GHT) T-Score: -2.8 Z-Score: -2.4 Femoral Neck Bone Mineral Density (gm/cm2): 0.556 T-Score: -2.8 Z-Score: -1.7 FRAX 10 year probability major osteoporotic f racture: 17% 10 year probability hip fracture: 5.4% COMPARISON TO PRIOR STUDY: This is a baseline bone density test (fi rst one at [facility]) VERTEBRAL FRACTURE ASSESSMENT: No vertebral fractures from T11 through L4. Upper thoracic vertebrae are not seen well. ASSESSMENT: 1. Osteoporosis, based on T-score(s) at all skeletal sites 2. Patient is at high risk of fracture, based on age, fracture history, bone mineral density at all skeletal sit es, and presence or absence of other risk factors. RECOMMENDATIONS: ?? 1. Optimize calcium and vitamin D intake 2. A work-up for secondary causes of bon e loss is indicated if not previously done 3. Consider pharmacologic fracture preve ntion therapy 4. Repeat DXA in 2 years FRAX Explanation: The 10 year risks of hip and major osteo porotic fractures (clinical spine, forearm, hip or shoulder fracture) are c alculated by the FRAX algorithm based on femoral neck bone density, age, gender, race/ethnicity, weight, height, previous fracture, parental hip fracture, smoking status, glucocorticoid intake, history of RA, se condary osteoporosis, and high alcohol consumption. FRAX Fracture Risk Categories in terms o f major osteoporotic fractures: < 10% = low fracture risk ? 10% and <15% = mildly increased fractu re risk ? 15% and <20% = moderately increased fr acture risk ? 20% and <30% = high fracture risk ? 30% = very high fracture risk National [employer] Treatme nt Guideline A clinician may consider FDA-approved me dical therapies in postmenopausal women and men aged 50 years and older, i f one or more of the following is present (clinical correlation required a nd therapy may not always be indicated): 1. The patient has a hip or vertebral fr acture. 2. T-score ? -2.5 at the femoral neck, h ip, or spine after appropriate evaluation to exclude secondary causes. 3. Low bone mass (T-score between -1.0 a nd -2.5 at the femoral neck, hip or spine) and a 10-year probability of a hip fracture ? 3% or a 10-year probability of a major osteoporosis-rela ti fracture ? 20% based on the FRAX scores. Delgado Gottlieb MD RAD DEXA documented in this encounter Visit Diagnoses Diagnosis Low bone density documented in this encounter Care Teams Node Js Developer Relationship Specialty Start Date End Date Cintia Cobb MD PCP - General Family Practice 09/30/21 documented as of this encounter
--- OUTSIDE RECORDS SUMMARY | 2022-07-29 11:07 | XMS_ITS | Encounter Summary ---
:1960 Author Organization [facility] Address [address] [place] [address] Care Team Providers Name Role Phone Cintia Cobb MD Primary Care Provider [phone] Encounter Details Date Type Department Care Team Description 01/01/2022 Notes/Orders [facility] ANNI Cesar Champagne, Acute pain [address] [place], [place] [address] [address] [place] [address] [place] [address] (Gavi rk) Social History Tobacco Use Types Packs/Day [...] Description 08/04/2022 Appointment Orthopedics Delgado Gottlieb MD [address] [place] [phone] (Gavi rk) 10/08/2022 Appointment Orthopedics Delgado Gottlieb MD [address] [place] [phone] (Wo rk) 05/27/2023 Appointment Chemo Therapy/Infusion Services documented as of this encounter Visit Diagnoses Diagnosis Acute pain documented in this encounter Care Teams Director Franchise Sales Relationship Specialty Start Date End Date Cintia Cobb MD PCP - General Family Practice 09/30/21 documented as of this encounter
--- OUTSIDE RECORDS SUMMARY | 2022-07-29 11:07 | XMS_ITS | Encounter Summary ---
:1960 Author Organization [employer] Address [address], [place] [address] Care Team Providers Name Role Phone Cintia Cobb MD Primary Care Provider [phone] Reason for Visit Reason Comments LAB RESULTS Critical lab result Encounter Details Date Type Department Care Team Description 10/16/2021 Telephone [facility] [address], LAB RESULTS (Critical Orthopedics Clinic lab result ) [address] [place] [address] [place], [place] [phone] Social History Tobacco Use Types Packs/Day Years [...] encounter Nursing Notes Rosetta Ye RN - 10/23/2021 11:47 AM CST Patient notified of the approval of the [place] and to not go over 3000 mg of Tylenol a day as there is Tylenol in the [place]. He verbalized understanding. Rosetta Ye RN 10/23/2021, 11:50 AM ER TOOL SHARPENER Rosetta Ye RN - 10/21/2021 9:00 AM CST [facility] at [phone] and follow the prompt for [facility] and ask to speak with one of the nurses. Letter sent Rosetta Ye RN 10/21/2021, 9:00 AM ER TOOL SHARPENER Rosetta Ye RN - 10/18/2021 8:51 AM CST [facility] at [phone] and follow the prompt for [facility] and ask to speak with one of the nurses. Rosetta Ye RN 10/18/2021, 8:51 AM ER TOOL SHARPENER Rosetta Ye RN - 10/17/2021 8:08 AM CST [facility] at [phone] and follow the prompt for [facility] and ask to speak with one of the nurses. Rosetta Ye RN 10/17/2021, 8:09 AM ER TOOL SHARPENER Delgado Gottlieb MD - 10/16/2021 9:15 PM CST Thanks. [place] refill approved and sent to the patient's pharmacy. I discussed this with him today but please remind them that he cannot take Tylenol with the [place] because it has acetaminophen already in it. Also, I agree with the recommendations provided for his anemia. His Hb level, while quite low, is actually stable to slightly improved from when he was in the hospital. He lives chronically low so as long as he is not symptomatic then no intervention is required. The patient has a well documented resistance to receiving blood products. ER TOOL SHARPENER Rosetta Ye RN - 10/16/2021 3:37 PM CST Patient returned call and was informed of the critical lab value of 5.9 for his hemoglobin. He is continuing to refuse blood products. He states I don't trust the blood. He states that his makeshim a shake with spinach, pineapple and other things to help build up his level. He was given a listof foods high in iron. He is refusing to take an iron tablet. 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 He is requesting a refill, but is not wanting the oxycodone. He states it is too much for him. He states he had some left over hydrocodone from a previous shoulder injury that he has been using. He states he has 3 tablets left and is wondering if he could get a script sent to the [facility] in [place]. Please advise. Thank you. Rosetta Ye RN 10/16/2021, 3:43 PM ER TOOL SHARPENER Rosetta Ye RN - 10/16/2021 2:55 PM CST [facility] is calling with a critical lab result for patient - hemoglobin level 5.9. Patient was 5.6 on 10/02/2021. I spoke with Leta Daigle PA-C, who states that he is refusing transfusions. She will alert Dr Gottlieb. Inform patient of the information. Encourage iron rich foods with Vitamin C for absorption. See if he would be willing to start an iron tablet. [facility] at [phone] and follow the prompt for [facility] and ask to speak with one of the nurses. Rosetta Ye RN 10/16/2021, 3:12 PM ER TOOL SHARPENER documented in this encounter Plan of Treatment Upcoming Encounters Date Type Specialty Care Team Description 08/04/2022 Appointment [facility]oped[facility] [address] [facility] [place] [place] [phone] (Wo rk) 10/08/2022 Appointment Orthopedics Delgado Gottlieb MD [address] [facility] [place] [phone] (Wo rk) 05/27/2023 Appointment Chemo Therapy/Infusion Services documented as of this encounter Visit Diagnoses Not on filedocumented in this encounter Care Teams Office System Analyst Relationship Specialty Start Date End Date Cintia Cobb MD PCP - General Family Practice 09/30/21 documented as of this encounter
--- OUTSIDE RECORDS SUMMARY | 2022-07-29 11:07 | XMS_ITS | Encounter Summary ---
:1960 Author Organization [facility] Address [address] [place] [id number] Care Team Providers Name Role Phone Cintia Cobb MD Primary Care Provider [phone] Encounter Details Date Type Department Care Team Description 12/30/2021 Notes/Orders [facility] Cesar Champagne, [address] [place], [place] [address] [address] [place] [address] [place] [address] (Gavi presley) Social History Tobacco [...] Description 08/04/2022 Appointment Orthopedics Delgado Gottlieb MD [address] [place] [phone] (Gavi rk) 10/08/2022 Appointment Orthopedics Delgado Gottlieb MD [address] [place] [phone] (Wo rk) 05/27/2023 Appointment Chemo Therapy/Infusion Services documented as of this encounter Visit Diagnoses Not on filedocumented in this encounter Care Teams Assessment Expert Relationship Specialty Start Date End Date Cintia Cobb MD PCP - General Family Practice 09/30/21 documented as of this encounter
--- OUTSIDE RECORDS SUMMARY | 2022-07-29 11:07 | XMS_ITS | Encounter Summary ---
:1960 Author Organization [employer] Address [address], [place] [address] Care Team Providers Name Role Phone Cintia Cobb MD Primary Care Provider [phone] Reason for Visit Reason Comments QUESTIONS, GENERAL Encounter Details Date Type Department Care Team Description 10/23/2021 Telephone [facility] [address] MD QUESTIONS, GENERAL Orthopedics Clinic [address] [place] [address] [place] [address] [phone] Social History Tobacco Use Types Packs/Day Years [...] documented as of this encounter Nursing Notes Jenniffer Carpenter RN - 10/23/2021 12:30 PM CST Called and spoke with the patient's spouse and relayed the information. Michael Sargent verbal permission was given this AM to speak with his spouse. She appreciated the information. Jenniffer Carpenter RN 10/23/2021, 12:31 PM TTING MACHINE FEEDER Delgado Gottlieb MD - 10/23/2021 12:03 PM CST Methocarbamol refill approved. Thanks. TTING MACHINE FEEDER Rosetta Ye RN - 10/23/2021 11:33 AM CST I spoke with Dr Gottlieb regarding patients request. He is approving to be off work through 12/29/2021.Letter has been written and patient notified. Letter placed at front end manager of third floor check in, per patient request. Date of Surgery: 10/01/2021 ORIF of left supracondylar distal femur fracture, utilizing both plate and nail fixation Patient is also requesting a refill of the robaxin. Last refill on 10/02/2021 for 30 tabs. Please advise. Thank you. Rosetta eY RN 10/23/2021, 11:45 AM TTING MACHINE FEEDER Rosetta Ye RN - 10/23/2021 11:20 AM CST I spoke with Ed who states that he needs a letter for his insurance stating his injury and about howlong he would be off work. He would like to be able to pick this up today since we are not able to do email. Rosetta Ye RN 10/23/2021, 11:21 AM TTING MACHINE FEEDER Nory Krishna - 10/23/2021 11:04 AM CST Has the patient recently had surgery or an injury? No How may we help you today? Patient decline to disclose any information. Nory Padilla Mai 10/23/2021, 11:06 AM TTING MACHINE FEEDER documented in this encounter Plan of Treatment Upcoming Encounters Date Type Specialty Care Team Description 08/04/2022 Appointment Orthopedics Delgado Gottlieb MD [address] [place], [place] [address] (Wo rk) 10/08/2022 Appointment Orthopedics Delgado Gottlieb MD [address] [place], [place] [phone] (Wo rk) 05/27/2023 Appointment Chemo Therapy/Infusion Services documented as of this encounter Visit Diagnoses Not on filedocumented in this encounter Care Teams Cafeteria Supervisor Relationship Specialty Start Date End Date Cintia Cobb MD PCP - General Family Practice 09/30/21 documented as of this encounter
--- OUTSIDE RECORDS SUMMARY | 2022-07-29 11:07 | XMS_ITS | Encounter Summary ---
:1960 Author Organization [employer] Address [address] [place] [address] Care Team Providers Name Role Phone Cintia Cobb MD Primary Care Provider [phone] Reason for Visit Reason Comments QUESTIONS, GENERAL Encounter Details Date Type Department Care Team Description 12/12/2021 Telephone Specialty Center [address] MD QUESTIONS, GENERAL Orthopedics Clinic [address] [place] [address] [place] [address] [phone] Social History Tobacco Use Types Packs/Day Years [...] encounter Nursing Notes Nathalia Stokes RN - 12/12/2021 3:47 PM CDT Spoke to patient, he states for the past year he has been having on and off urinary issues, but inthe past week it has been worse. He reports sometimes he will have urinary hesitancy or urgency. Does have known prostate issues, and does take medication for this. Denies any bowel issues or changes. Does have a visit scheduled with his PCP on 12/24/2021. Discussed lower extremity symptoms, educated on nerve distributions that arise from the spine. Knee swelling most likely not related to spine issues. Rosetta Ye RN - 12/12/2021 3:14 PM CDT I called and spoke with Ed regarding his concern. He is wondering if the pain that he is having in his left butt cheek and goes down the lateral thigh past the knee and down the cadena to the arch of hisfoot is a sign of a compressed nerve in his back. He was informed that it is. 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 He states that he is also having swelling to the left knee. I informed him that he may be straining his knee if he is walking abnormally from his back pain. He states that he has seen by Dr Scherer through for his back. He states that he also is noticing difficulty holding his urine the past 2 days. He was encouraged to contact his [facility] doctor to be seen as soon as possible to let him know what is going on. He verbalized understanding. Will route to Dr Scherer. Fyi to care team. Rosetta Ye RN 12/12/2021, 3:24 PM Nirmala Sheppard - 12/12/2021 12:52 PM CDT Patient says he wants to talk to Rosetta and has a question about something and will not say what it is. Nirmala Sheppard 12/12/2021, 12:52 PM documented in this encounter Plan of Treatment Upcoming Encounters Date Type Specialty Care Team Description 08/04/2022 Appointment Orthopedics Delgado Gottlieb MD [address] [place] [phone] (Wo rk) 10/08/2022 Appointment Orthopedics Delgado Gottlieb MD [address] [place] [address] (Wo rk) 05/27/2023 Appointment Chemo Therapy/Infusion Services documented as of this encounter Visit Diagnoses Not on filedocumented in this encounter Care Teams Launderer Hand Relationship Specialty Start Date End Date Cintia Cobb MD PCP - General Family Practice 09/30/21 documented as of this encounter
--- OUTSIDE RECORDS SUMMARY | 2022-07-29 11:07 | XMS_ITS | Encounter Summary ---
:1960 Author Organization [facility] Address [address], [place] [address] Care Team Providers Name Role Phone Cnitia Cobb MD Primary Care Provider [phone] Reason for Referral Consult/Transfer Care (Routine) - New Request Specialty Diagnoses / Procedures Referred By Contact Refer red To Contact Diagnoses Low bone density Delgado Gottlieb MD [address] [place] [address] Referral ID Status Reason Start Date Expiration Date Visits V isits Requested Authorized [id number] New Request 10/16/2021 01/15/2023 1 1 Scheduling Instructions Your provider has recommended an appoint ment with [facility]. You can quickly make your appointment online at Baoku/schedule. You can also call [phone] for help scheduling yo ur appointment. We suggest you call your health insurance company about your cove rage and benefits for this appointment. STAMPER Procedure/Equipment (Routine) - Incomplete Specialty Diagnoses / Procedures Referred By Contact Refer red To Contact Diagnoses Closed fracture of distal end of left femur with routine healing, unspecified fracture morphology, subsequent encounter Delgado Gottlieb MD Procedures XR Femur Lt 2 Views [address] [place] [address] Referral ID Status Reason Start Date Expiration Date Visits V isits Requested Authorized [id number] Incomplete 10/16/2021 01/15/2023 1 1 STAMPER Reason for Visit Reason Comments POST-OP,EXAM Consult/Transfer Care (Routine) - New Request Specialty Diagnoses / Procedures Referred By Contact Refer red To Contact Diagnoses Closed fracture of distal end of left femur, unspecified fracture morphology, initial encounter ([facility]) Suzie Daigle, EMMA [address] [place] [address] Referral ID Status Reason Start Date Expiration Date Visits V isits Requested Authorized [id number] New Request 10/02/2021 01/01/2023 1 1 Encounter Details Date Type Department Care Team Description 10/16/2021 Office Visit [facility] Delgado Gottlieb, Domenica bell fracture of distal end of left femur with routine healing, unspecified fracture morphology, subsequent encounter (Primary Dx); [address] [facility] Low bone density [address] [facility]. [address] [place] [address] [place], [place] [phone] [id number] Social History Tobacco Use Types Packs/Day Years [...] as of this encounter Patient Instructions Patient InstructionsPeGretchen herman, RADHA - 10/16/2021 10:20 AM CST ORTHOPAEDICS DEPARTMENT PHONE NUMBER: [phone] Reason for today's visit: POST-OP,EXAM Treatment plan: ??? You may progress weight bearing on the left lower extremity as you feel comfortable doing, usingwalker/crutches or eventually a cane ??? Start physical therapy as scheduled, and you can work on these home exercises in the meantime ??? We ordered bone health labs today. Get them done a few days prior to your bone health consult [facility]. You can get them done at any [facility] lab. Call [phone] to schedule a DEXA Scan to see how strong your bones are. [facility] will be contacting you to schedule a Bone Health Consultwith them, or you can call [phone], to discuss the results of your bone health screening and any treatments that you may need. This can be done in person or via a video visit using the CrossFiber jannie. Hcarles were removed today, and steri-strips applied. Leave steri-strips in place and let them fall away on their own. May remove steri-strips past 7 days. May shower, let water run over surgical area,and pat dry. Do not soak the surgical area until incisions are completely healed (in roughly 2 weeks) Signs and symptoms to watch for: ??? Excessive pain ??? Increase in redness, tenderness, swelling or red streaks ??? Appearance of pus ??? An elevated temperature If you have the above symptoms or are concerned for infection, call our clinic if within business hours, otherwise will need to be seen by a physician at ER or urgent care. Follow up appointments: You will follow up with Delgado Gottlieb MD in 6 week(s). X-Rays: You will have left femur X-Rays taken with your next Orthopaedics appointment. Please minutes early for your appointment. Reason for next Orthopaedics appointment: Post op ORIF/IMN supracondylar distal femur fx DOS: 10/01/2021 Please stop at the check out desk to schedule a follow up appointment. Use this grid to write down your next appointment. DATE & TIME PROVIDER LOCATION APPT NOTES ( ) [facility]: [address] [place] [address] ( ) [facility]: [address] [place] [address] ( ) Other: Post op ORIF/IMN supracondylar distal femur fx DOS: 10/01/2021 ( ) [facility]: [address] [place] [address] ( ) [facility] [address] [place], [place] ( ) Other: If you have any questions about your visit, your symptoms, your medication, your test results or it is not clear what your diagnosis or treatment plan is please contact us at [phone] or send us a secure message via Sequenom. You may receive a survey in the mail regarding your visit today. Your feedback is very important to us, please take a moment to complete the survey which is completely anonymous. If you would like to speak to someone specifically, you may contact the clinic at [phone] and your call will be directed to someone on our leadership team. Thank you for choosing Delgado Gottlieb MD and [facility]. Did you know, you can now reach us for appointment scheduling seven days a week, 365 days a year from 7am to 9pm? Just call our main number, , listen to the prompts and you will be connected to a inventory representative who can assist you with your appointment scheduling needs. STAMPER documented in this encounter Progress Notes Delgado Gottlieb MD - 10/16/2021 10:20 AM CST Orthopaedic Postoperative Note DOI: 09/30/2021 NICOLETTE: slip [...] is a 61 y.o. male who presents 2 weeks from the above procedure.Patient states that he continues to have pain and swelling, particularly at the knee. He also notes a burning sensation intermittently at the knee that radiates down the cadena. He is taking ibuprofen and extra strength acetaminophen for pain relief. He takes methocarbamol which helps with his pain at times. He is scheduled to start physical therapy next week in his local area at a [facility]. He notes that he was told he would get exercises by the inpatient PT at [facility], though never received these. 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 Appears well nourished and well developed. Psychiatric: Patient's affect is pleasant and appropriate. Patient is cooperative with exam. HEENT: Hearing is intact to spoken word, extraocular movements intact. Respiratory: Breathing is unlabored, regular respirations. Examination of the patient's left lower extremity demonstrates lateral thigh and lateral/anterior/medial knee incisions are healing, dry, and intact. [place] were removed today. There is resolving ecchymosis about the thigh and stable venous stasis changes at the lower leg. Mild diffuse swelling of the distal thigh and knee, minimal swelling distally along the lower leg. Palpation: Negative Jose De Jesus's. No knee effusion. ROM: Knee ROM from 15 degrees short of full to 90 degrees flexion, limited by pain Sensory: SILT to Deep Peroneal/ Superficial Peroneal/ Tibial Nerve Vascular: Foot warm, brisk capillary refill of the toes Motor: Fires EHL/FHL/Gastroc/Tib Anterior Left leg charles were removed today, and steri strips were applied utilizing benzoin tincture. Imaging: Radiographs of the left femur are obtained today. These are personally reviewed by me and demonstrate retrograde intramedullary nail and plate fixation of the supracondylar distal femur fracture are intact with no loss of fixation compared to prior films. Retained intramedullary nail at the proximal femur re- demonstrated. Fracture lines remain clearly evident. Assessment: Patient is a 61 y.o. male 2 weeks status post ORIF left supracondylar distal femur fracture, doing well. Plan: I am happy to hear that the patient has been doing well since discharge from the hospital. We discussed that today's radiographs show stable alignment of his fracture. I would like him to work a bit more on knee range of motion over the next few weeks, particularly extension. I explained that the bestway to do this is to place a pillow beneath the foot and allowed the knee to hang free such that he can stretch out the posterior soft tissues. Physical therapy will also be helpful with this. 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 I cannot give him a specific time frame on when he is safe to do this but I explained he needs to be able to easily operate the foot pedals and slam on the brakes in case of emergency. If he feels that he is ready to do this in the next few days to weeks then I am fine with him returning to work but again, he is the only 1that can decide when he is safely able to do this. The patient also inquired about bone health and I explained that we could either have his primary care doctor leave this evaluation or consider referral to Delmer Valladares PA-C, through [facility]. He was interested in the latter option so we will make this referral and order the appropriate imaging/labs. 1. Weight Bearing: Continue WBAT LLE, using assistive devices 2. Home exercises provided, and he will start outpatient PT in his local area as scheduled. 3. Okay to shower and let water run over the incisions, do not submerge until fully healed 4. Bone health referral placed today. Explained he will need to obtain a DXA scan and blood labs ahead of the visit Follow-Up: In 6 weeks checking x-rays 2 view left femur The patient is in agreement with today's plan and has no further questions. Speech-recognition software was utilized in the writing of this note and therefore the note may contain unintended word substitutions. Delgado Gottlieb MD Pilates Instructor [facility] Department of Orthopaedic Surgery [facility] ADDENDUM: The patient's bone health labs came back notable for a hemoglobin of 5.9. We were alerted by the labof this critical value. This patient has chronic anemia and actually refused a transfusion in the hospital with a hemoglobin of 5.6. Therefore this value is actually a bit improved. We did call the patient to notify him of the result. Since he is not currently symptomatic and refusing transfusions anyway, no treatment is necessary at this time. He was advised to take an iron supplement and notify us or present to an emergency department if he develops any symptoms of anemia. STAMPER documented in this encounter Plan of Treatment Upcoming Encounters Date Type Specialty Care Team Description 08/04/2022 Appointment Orthopedics Delgado Gottlieb MD [address] [place] [address] (Wo rk) 10/08/2022 Appointment Orthopedics Delgado Gottlieb MD [address] [place], [place] [address] (Wo rk) 05/27/2023 Appointment Chemo Therapy/Infusion Services Scheduled Referrals Name Type Priority Associated Diagnoses Order S chedule Osteoporosis-Orthopedics Referral Routine Low bone density Ordered: 10/16/2021 [[id number]] documented as of this encounter Results VITAMIN D 25-HYDROXY, TOTAL (V77.99) (10/16/2021 11:39 AM RING STAMPER) [facility] Method Time Signature Vitamin D, 69 30 - 80 10/16/2021 [facility] 25-OH, Total ng/mL 3:06 PM RING STAMPER CENTRAL LAB Specimen Anatomical Collection Method / Collection Time Recei shahid Time (Source) Location / Volume Laterality Blood Venipuncture / 10/16/2021 11:39 2 Unknown AM RING STAMPER 11:39 AM RING STAMPER Delgado Gottlieb MD LAB_1 Performing Organization Address [facility] Phon [facility] Number [facility] [address] [address] TSH, SENSITIVE (10/16/2021 11:39 AM RING STAMPER) [facility] Method Time Signature TSH, Sensitive 1.10 0.30 - 10/16/2021 [facility] 4.50 3:10 PM RING STAMPER CENTRAL LAB uIU/mL Specimen Anatomical Collection Method / Collection Time Recei shahid Time (Source) Location / Volume Laterality Blood Venipuncture / 10/16/2021 11:39 2 Unknown AM RING STAMPER 11:39 AM RING STAMPER Delgado Gottlieb MD LAB_1 Performing Organization Address [facility] Phon e Number [facility] CENTRAL LAB [address] [address] (ABNORMAL) Intact PTH (10/16/2021 11:39 AM RING STAMPER) athologist Signature Intact PTH 107 (H) 10 - 100 10/16/2021 [facility] pg/mL 2:37 PM [facility] ST[facility] Specimen Anatomical Collection Method / Collection Time Recei shahid Time (Source) Location / Volume Laterality Blood Venipuncture / 10/16/2021 11:39 2 Unknown AM RING STAMPER 11:39 AM RING STAMPER Delgado Gottlieb MD LAB_1 Performing Organization Address City/State/[place] [address] (ABNORMAL) Comp Metabolic Panel (10/16/2021 11:39 AM RING STAMPER) [facility] Method Time Signature Sodium 138 136 - 145 10/16/2021 [facility] mmol/L 2:58 PM RING STAMPER CENTRAL LAB Potassium 4.7 3.5 - 5.1 10/16/2021 [facility] mmol/L 2:58 PM RING STAMPER CENTRAL LAB Chloride 107 98 - 109 10/16/2021 [facility] mmol/L 2:58 PM RING STAMPER CENTRAL LAB CO2 21 20 - 29 10/16/2021 [facility] mmol/L 2:58 PM RING STAMPER CENTRAL LAB Anion Gap 10 7 - 16 10/16/2021 [facility] mmol/L 2:58 PM RING STAMPER CENTRAL LAB Calcium 9.0 8.4 - 10/16/2021 [facility] 10.4 2:58 PM RING STAMPER CENTRAL LAB mg/dL BUN 26 7 - 26 10/16/2021 [facility] mg/dL 2:58 PM RING STAMPER CENTRAL LAB Creatinine 1.08 0.73 - 10/16/2021 [facility] 1.18 2:58 PM RING STAMPER CENTRAL LAB mg/dL GFR, Estimated >60 >60 10/16/2021 [facility] mL/min/1. 2:58 PM RING STAMPER CENTRAL LAB 73m2 Alkaline 79 40 - 150 10/16/2021 [facility] Phosphatase U/L 2:58 PM RING STAMPER CENTRAL LAB AST (SGOT) 12 10 - 40 10/16/2021 [facility] U/L 2:58 PM RING STAMPER CENTRAL LAB ALT (SGPT) 11 0 - 55 10/16/2021 [facility] U/L 2:58 PM RING STAMPER CENTRAL LAB Bilirubin, 0.5 0.2 - 1.2 10/16/2021 [facility] Total mg/dL 2:58 PM RING STAMPER CENTRAL LAB Protein, Total 6.1 (L) 6.4 - 8.3 10/16/2021 [facility] g/dL 2:58 PM RING STAMPER CENTRAL LAB Albumin 3.4 (L) 3.5 - 5.0 10/16/2021 [facility] g/dL 2:58 PM RING STAMPER CENTRAL LAB Glucose 110 (H) 70 - 100 10/16/2021 [facility] mg/dL 2:58 PM RING STAMPER CENTRAL LAB Comment: The given reference range is fo r the fasting state. Non-fasting reference range for glucose is 70 - 180 mg/dL. Hours Fasting 4 10/16/2021 2:58 PM RING STAMPER [facility] 435 LABORATORY Specimen Anatomical Collection Method / Collection Time Recei shahid Time (Source) Location / Volume Laterality Blood Venipuncture / 10/16/2021 11:39 2 Unknown AM RING STAMPER 11:39 AM RING STAMPER Delgado Gottlieb MD LAB_1 Performing Organization Address City/State/ZIP Code Phon e Number [facility] CENTRAL LAB [address] LABORATORY XR Femur Lt 2 Views (10/16/2021 10:01 AM RING STAMPER) Anatomical Region Laterality Modality Lower Extremity, Leg, Thigh Computed Rad iography Specimen (Source) Anatomical Collection Method Collection Time Re ceived Time Location / / Volume Laterality 10/16/2021 10:01 AM RING STAMPER Narrative 10/16/2021 2:21 PM RING STAMPER EXAM: XR FEMUR LT 2 VIEWS LOCATION: [place] [address] DATE/TIME: 10/16/2021 10:01 AM INDICATION: Open reduction internal fixa tion of left supracondylar distal femur fracture COMPARISON: 10/02/2021 IMPRESSION: Internal fixation hardware i n the proximal and distal left femur stabilizing fractures with an unchanged alignment. Lateral side plate with screw fixation hardware remains in place. No evide nce for new hardware failure. Skin stapl es in place. Minimal healing reaction surrounding a comminuted distal femur fracture. Procedure Note Yogi Cheema MD - 10/16/2021Formatt ing of this note might be different from the original. EXAM: XR FEMUR LT 2 VIEWS LOCATION: [facility] [address] DATE/TIME: 10/16/2021 10:01 AM INDICATION: Open reduction internal fixa tion of left supracondylar distal femur fracture COMPARISON: 10/02/2021 IMPRESSION: Internal fixation hardware i n the proximal and distal left femur stabilizing fractures with an unchanged alignment. Lateral side plate with screw fixation hardware remains in place. No evidence for new hardware failure. Skin charles in place. Minimal healing reaction surrounding a comminuted distal femur fracture. Delgado Gottlieb MD RAD GD documented in this encounter Visit Diagnoses Diagnosis Closed fracture of distal end of left fe mur with routine healing, unspecified fracture morphology, subsequent encounte r - Primary Low bone density [facility] Aftercare following surgery of the [facility] loskeletal system, NEC documented in this encounter Care Teams Continuous Improvement Facilitator Relationship Specialty Start Date End Date Cintia Cobb MD PCP - General Family Practice 09/30/21 documented as of this encounter
--- OUTSIDE RECORDS SUMMARY | 2022-07-29 11:07 | XMS_ITS | Encounter Summary ---
:1960 Author [facility] Address [address] [place] [address] Care Team Providers Name Role Phone Cintia Cobb MD Primary Care Provider [phone] Encounter Details Date Type Department Care Team Description 11/19/2021 Notes/Orders [facility] Cesar Champagne, [address] [place], [place] [address] [address] [place] [address] [place] [address] (Gavi presley) Social History Tobacco [...] 08/04/2022 Appointment Orthopedics Delgado Gottlieb MD [address] [place] [address] (Gavi rk) 10/08/2022 Appointment Orthopedics Delgado Gottlieb MD [address] [place] [address] (Wo rk) 05/27/2023 Appointment Chemo Therapy/Infusion Services documented as of this encounter Visit Diagnoses Not on filedocumented in this encounter Care Teams Quality Nurse Relationship Specialty Start Date End Date Cintia Cobb MD PCP - General Family Practice 09/30/21 documented as of this encounter
--- OUTSIDE RECORDS SUMMARY | 2022-07-29 11:07 | XMS_ITS | Encounter Summary ---
:1960 Author Organization [facility] Address [address] [place] [address] Care Team Providers Name Role Phone Cintia Cobb MD Primary Care Provider [phone] Reason for Visit Procedure/Equipment (Routine) - Incomplete Specialty Diagnoses / Procedures Referred By Contact Refer red To Contact Diagnoses Closed fracture of distal end of left femur with routine healing, unspecified fracture morphology, subsequent encounter Delgado Gottlieb MD Procedures XR Femur Lt 2 Views [address] [place] [address] Referral ID Status Reason Start Date Expiration Date Visits V isits Requested Authorized [id number] Incomplete 10/16/2021 01/15/2023 1 1 Encounter Details Date Type Department Care Team Description 10/16/2021 [facility]illary [facility] Procedure Specialty Center Angélica Tadeo surgery of the Radiology [address] musculoskeletal system [address] [place] [address] [facility] [phone] [place] [address] Social History Tobacco Use Types Packs/Day Years [...] 08/04/2022 Appointment Orthopedics Delgado Gottlieb MD [address] [place], [place] [address] (Wo rk) 10/08/2022 Appointment Orthopedics Delgado Gottlieb MD [address] [place], [place] [address] (Wo rk) 05/27/2023 Appointment Chemo Therapy/Infusion Services documented as of this encounter Procedures Procedure Name Priority Date/Time Associated Diagnosis Comme nts XR FEMUR LT 2 Routine 10/16/2021 10:01 Aftercare following Res ults for this VIEWS AM TOBACCO ACREAGE MEASURER surgery of the procedure are in musculoskeletal system the r esults section. documented in this encounter Results XR Femur Lt 2 Views (10/16/2021 10:01 AM TOBACCO ACREAGE MEASURER) Anatomical Region Laterality Modality Lower Extremity, Leg, Thigh Computed Rad iography Specimen (Source) Anatomical Collection Method Collection Time Re ceived Time Location / / Volume Laterality 10/16/2021 10:01 AM TOBACCO ACREAGE MEASURER Narrative 10/16/2021 2:21 PM TOBACCO ACREAGE MEASURER EXAM: XR FEMUR LT 2 VIEWS LOCATION: [place] [address] DATE/TIME: 10/16/2021 10:01 AM INDICATION: Open reduction [...] EXAM: XR FEMUR LT 2 VIEWS LOCATION: [place] [address] DATE/TIME: 10/16/2021 10:01 AM INDICATION: Open reduction internal fixa tion of left supracondylar distal femur fracture COMPARISON: 10/02/2021 IMPRESSION: Internal fixation hardware i n the proximal and distal left femur stabilizing fractures with an unchanged alignment. Lateral side plate with screw fixation hardware remains in place. No evidence for new hardware failure. Skin chapis in place. Minimal healing reaction surrounding a comminuted distal femur fracture. Delgado Gottlieb MD RAD GD documented in this encounter Visit Diagnoses Diagnosis Aftercare following surgery of the [facility] [place] Aftercare [facility] documented in this encounter Care Teams Home Demonstration Agent Relationship Specialty Start Date End Date Cintia Cobb MD PCP - General Family Practice 09/30/21 documented as of this encounter
--- OUTSIDE RECORDS SUMMARY | 2022-07-29 11:07 | XMS_ITS | Encounter Summary ---
:1960 Author [facility] Address [address], [place] [address] Care Team Providers Name Role Phone Cintia Cobb MD Primary Care Provider [phone] Encounter Details Date Type Department Care Team Description 01/11/2022 Notes/Orders [facility] [place], Age-re lated Orthopaedics & Sports PA-C osteoporosis with Medicine [address] [facility] current pathological [address] [facility]. [place], [place] fracture, initial [place], [place] [phone] encounter (Primary [phone] Dx) (Work) Social History Tobacco Use Types Packs/Day Years [...] Description 08/04/2022 Appointment Orthopedics Delgado Gottlieb MD [address] [place] [address] (Wo rk) 10/08/2022 Appointment Orthopedics Delgado Gottlieb MD [address] [place] [address] (Wo rk) 05/27/2023 Appointment Chemo Therapy/Infusion Services documented as of this encounter Visit Diagnoses Diagnosis Age-related osteoporosis with current pa thological fracture, initial encounter - Primary documented in this encounter Care Teams Internal Audit Director Relationship Specialty Start Date End Date Cintia Cobb MD PCP - General Family Practice 09/30/21 documented as of this encounter
--- OUTSIDE RECORDS SUMMARY | 2022-07-29 11:07 | XMS_ITS | Encounter Summary ---
:1960 Author Organization [facility] Address [address] [place] [address] Care Team Providers Name Role Phone Cintia Cobb MD Primary Care Provider [phone] Reason for Visit Reason Comments IV,THERAPY Prior Authorization For Infusion Medication Reclast J3 489 - add additional DIAG code to TP Order Encounter Details Date Type Department Care Team Description 01/10/2022 Telephone [facility] Delmer Valladares, IV,THE RAPY; Prior CENTER PA-C Authorization For [address] Infusion Medication [place], [place] [address] [place], [place] (Reclast J3489 - add [phone] [id number] additional DIAG code to [phone] (Wo rk) TP Order) Social History Tobacco Use Types Packs/Day Years [...] documented as of this encounter Nursing Notes Gigi Fontenot M - 01/10/2022 4:45 PM CDT PT called back and would like to receive another call back when possible Jelena Owens - 01/10/2022 1:53 PM CDT Images from the original note were not included. Good afternoon, A therapy plan order was received for Zoledronic Acid (Reclast) J3489. Patient has BCBS Medicare Advantage, and they follow Medicare guidelines. Below are DIAG that are covered for IV Infusion - Zoledronic Acid (Reclast) J3489. Can one of the following DIAG be added to the therapy plan order? Please add one of the covered DIAG that are provided above, or with your permission, I can add the DIAG once you clarify which one. Thank you, Jelena Owens Specialty Care Hone Operator [address] Mail Stop: [id number] [place] [address] Office: [phone] documented in this encounter Plan of Treatment Upcoming Encounters Date Type Specialty Care Team Description 08/04/2022 Appointment Orthopedics Delgado Gottlieb MD [address] [place], [place] [address] (Gavi presley) 10/08/2022 Appointment Orthopedics Delgado Gottlieb MD [address] [place], [place] [address] (Gavi presley) 05/27/2023 Appointment Chemo Therapy/Infusion Services documented as of this encounter Visit Diagnoses Not on filedocumented in this encounter Care Teams Marine Structural Welder Relationship Specialty Start Date End Date Cintia Cobb MD PCP - General Family Practice 09/30/21 documented as of this encounter
--- OUTSIDE RECORDS SUMMARY | 2022-07-29 11:07 | XMS_ITS | Encounter Summary ---
:1960 Author Organization [facility] Address [address], [place] [address] Care Team Providers Name Role Phone Cintia Cobb MD Primary Care Provider [phone] Reason for Visit Reason Comments QUESTIONS, GENERAL Encounter Details Date Type Department Care Team Description 10/07/2021 Telephone Specialty Center [address] Delgado Gottlieb MD QUESTIONS, GENERAL Orthopedics Clinic [address] [place] [address] [place] [address] [phone] Social History Tobacco Use Types Packs/Day Years [...] encounter Nursing Notes Rosetta Ye RN - 10/07/2021 12:40 PM CST I called and spoke with patient and informed him of the information on the note below from Dr Gottlieb. He verbalized understanding and will come to his appointment here as scheduled. He states he lives in [place] and was just trying to see if it were possible to go some place a little closer and nothave to go through the city to get to where he needs to go. He states [place] get to his appointment and was trying to keep it as simple as possible. He is also asking when he should be getting in for PT. He was informed to call and schedule as sometimesthey can be booked up for a couple of weeks ahead. He states he would like the order faxed to [facility] at [phone] ATTN: Lesli. Order faxed as requested. Rosetta Ye RN 10/07/2021, 12:49 PM CLING TECH Delgado Gottlieb MD - 10/07/2021 11:43 AM CST Given the complexity of this patient's injury my preference would be that he continue to see me for now. However, if he is still resistant to that then one option would be to arrange followup with Drs. Edge or Marcello at [facility]. There are no ortho trauma surgeons at [facility] so that would not be an option for followup of this injury. Thanks. Freddy Lua - 10/07/2021 10:04 AM CST Has the patient recently had surgery or an injury? Yes. Date of Surgery: September 30, 2021 Type of Surgery: Left ORIF distal femur How may we help you today? Patient called, wanting to transfer care to [facility] due to convenience, please call to advise Describe your symptoms/concerns: Left femur S/P ORIF When did the issue start: 09/30/21 Have you been seen for this recently?: Yes Dr. Gottlieb [Ent Physician/Appt Center: If yes, please include date and provider.] Is it okay to leave detailed message on your voicemail? Yes [Ent Physician/Appt Center: If this call is after 3 p.m., communicate to patient: If we are not able to get back to you by the end of the day and your symptoms worsen please contact the Careline] CLING TECH documented in this encounter Plan of Treatment Upcoming Encounters Date Type Specialty Care Team Description 08/04/2022 Appointment Orthopedics Delgado Gottlieb MD [address] [place], [place] [address] (Wo rk) 10/08/2022 Appointment Orthopedics Delgado Gottlieb MD [address] [place], [place] [address] (Wo rk) 05/27/2023 Appointment Chemo Therapy/Infusion Services documented as of this encounter Visit Diagnoses Not on filedocumented in this encounter Care Teams Whizzer Hand Relationship Specialty Start Date End Date Cintia Cobb MD PCP - General Family Practice 09/30/21 documented as of this encounter
--- OUTSIDE RECORDS SUMMARY | 2022-07-29 11:07 | XMS_ITS | Encounter Summary ---
:1960 Author [facility] Address [address] [place] [address] Care Team Providers Name Role Phone Cintia Cobb MD Primary Care Provider [phone] Reason for Referral Therapies (Routine) - New Request Specialty Diagnoses / Procedures Referred By Contact Refer red To Contact Diagnoses Closed fracture of distal end of left femur with routine healing, unspecified fracture morphology, subsequent encounter Delgado Gottlieb MD [address] [place] [address] Referral ID Status Reason Start Date Expiration Date Visits V isits Requested Authorized [id number] New Request 11/27/2021 11/27/2022 1 1 Scheduling Instructions This order is [...] ask your clinician's staff to assist you. Procedure/Equipment (Routine) - Incomplete Specialty Diagnoses / Procedures Referred By Contact Refer red To Contact Diagnoses Closed fracture of distal end of left femur with routine healing, unspecified fracture morphology, subsequent encounter Delgado Gottlieb MD Procedures XR Femur Lt 2 Views [address] [place] [address] Referral ID Status Reason Start Date Expiration Date Visits V isits Requested Authorized [id number] Incomplete 11/27/2021 02/26/2023 1 1 MENT WORKER Reason for Visit Reason Comments POST-OP,EXAM Encounter Details Date Type Department Care Team Description 11/27/2021 Office Visit Specialty Center Delgado Gottlieb, Domenica bell fracture of [address] [facility] MD distal end of left [address] [place] [address] [place], [place] healing, unspecified [phone] fracture morphology, subsequent enco unter (Work) (Primary [...] as of this encounter Patient Instructions Patient InstructionsMillKarri huynh - 11/27/2021 10:20 AM CDT ORTHOPAEDICS DEPARTMENT PHONE NUMBER: [phone] Reason for today's visit: POST-OP,EXAM Treatment plan: ??? Continue to weight bear as tolerated. ??? Continue with physical therapy. ??? Tubigrib provided in clinic today for your ankle and knee for compression to reduce swelling. ??? Methocarbamol (muscle relaxer) sent to your pharmacy with a coupe refills. Follow up appointments: You will follow up with Delgado Gottlieb MD in 3 month(s). X-Rays: repeat left femur Please stop at the check out desk to schedule a follow up appointment. Use this grid to write down your next appointment. DATE & TIME PROVIDER LOCATION APPT NOTES ( ) [facility]: [address] [place], [place] ( ) [facility]: [address] [place], [place] ( ) Other: S/p ORIF/IMN supracondylar distal femur fx, DOS: 10/01/2021 ( ) [facility]: [address] [place], [place] ( ) [facility] [address] [place], [place] ( ) Other: If you have any questions about your visit, your symptoms, your medication, your test results or it is not clear what your diagnosis or treatment plan is please contact us at [phone] or send us a secure message via [employer]. You may receive a survey in the mail regarding your visit today. Your feedback is very important to us, please take a moment to complete the survey which is completely anonymous. If you would like to speak to someone specifically, you may contact the clinic at [phone] and your call will be directed to someone on our leadership team. Thank you for choosing Delgado Gottlieb MD and [facility]. Did you know, you can now reach us for appointment scheduling seven days a week, 365 days a year from 7am to 9pm? Just call our main number, , listen to the prompts and you will be connected to a access service representative who can assist you with your appointment scheduling needs. documented in this encounter Progress Notes Delgado Gottlieb MD - 11/27/2021 10:20 AM CDT Orthopaedic Postoperative Note DOI: 09/30/2021 [...] is a 61 y.o. male who presents 8 weeks from the above procedure.Last visit, he continued to have pain and swelling particularly at the knee, and was scheduled to start PT in his area. He was okay to continue progressing WBAT and was referred to bone health. Ed presents today with , Magali, for follow up. 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 He reports some pain in the anterior and medial aspect of the left knee. Inthe last 2-3 weeks he noted pain that shoots up to the lateral hip. Robaxin helps quite a bit and hewonders if he can get a new prescription. He is doing physical therapy twice per week and very much likes his therapist and feels he is makingprogress. He does PT at [facility]. He uses the recumbent bicycle and the leg press and can press up to 30 lbs. He is walking with a cane and notes he got rid of the walker at 2 weeks postop which was a quicker recovery than after his IMN for left hip fracture several years ago. He denies new numbness/tingling but does endorse what sounds like neuropathy in bilateral feet (likely from diabeteswhich he apparently no longer has after significant weight loss with bariatric surgery in 2015). He is hoping to get a new tubigrip today and replace his compression stockings. He has not had a lot of swelling. 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 Appears well nourished and well developed. Psychiatric: Patient's affect is pleasant and appropriate. Patient is cooperative with exam. HEENT: Hearing is intact to spoken word, extraocular movements intact. Respiratory: Breathing is unlabored, regular respirations. Examination of the patient's left lower extremity demonstrates well-healed incisions. Some mild edema about the knee. Vascular changes in the distal aspect of the left leg. No signs of infection. He isable to ambulate with his cane and takes slow, small steps. Overall, does not appear too unsteady. Palpation: Tenderness about the anterior knee and medial distal femur. No tenderness or hardware prominence laterally. No tenderness over patellar tendon. ROM: Knee range of motion from 15 to 115 degrees flexion. Sensory: Reduced sensation in the entire foot and lower leg to the knee. SILT to light touch about the knee and thigh. Vascular: Foot warm, with vascular changes Motor: Fires EHL/FHL/Gastroc/Tib Anterior. Good strength in quads, hamstrings, hip flexors, abductors and adductors. Imaging: Radiographs of the left femur are obtained today. These are personally reviewed by me and demonstrate maintained, excellent alignment of the distal femoral fracture. Hardware is in good position without evidence of failure. There are limited signs of fracture callus formation which is not unexpected given the location of his injury and time from surgery. Assessment: Patient is a 61 y.o. male 8 weeks status post ORIF left supracondylar distal femur fracture, recovering well. Plan: Ed is doing quite well. He continues to make gains with strength and flexibility. He should continuePT and we are delighted that he is able to go so frequently and has a good relationship with his therapist. We recommend that he continue to work on knee range of motion, particularly knee flexion. Stationary biking may help with this. We also printed off pictures of his radiographs for DEVANTE Ballesteros. We sent a script for robaxin to his local pharmacy with 2 refills. He is curious about the benefits of hot versus cold for his knee to which we recommended ice for pain and inflammation and heat for stiffness. We gave him some new Tubigrips to trial at home. 1. Weight Bearing: WBAT LLE 2. Continue physical therapy. Focus on strengthening and knee ROM, particularly flexion 3. Script for robaxin #40, 2 refills, sent to home pharmacy 4. May return to driving as long as he can operate his truck safely including getting to the brake Follow-Up: In 3 months checking x-rays - 2 view left femur The patient is in agreement with today's plan and has no further questions. Laura Butcher, G2 The patient was seen and examined with Dr. Gottlieb. Speech-recognition software was utilized in the writing of this note and therefore the note may contain unintended word substitutions. Attestation: I saw and evaluated this patient and we have discussed the plan of care with the resident. I have personally reviewed the patient's imaging and laboratory data. I agree with the findings as detailed inthe resident's note. Delgado Gottlieb MD Pleating Machine Operator [facility] Department of Orthopaedic Surgery [facility] documented in this encounter Plan of Treatment Upcoming Encounters Date Type Specialty Care Team Description 08/04/2022 Appointment Orthopedics Delgado Gottlieb MD [address] [place] [address] (Gavi presley) 10/08/2022 Appointment Orthopedics Delgado Gottlieb MD [address] [place] [address] (Gavi presley) 05/27/2023 Appointment Chemo Therapy/Infusion Services Scheduled Referrals Name Type Priority Associated Diagnoses Order S chedule PT - PHYSICAL THERAPY Referral Routine Closed fracture of distal Ordered: 11/27/2021 [RMD700] end of left femur with routine healing, unspecified fracture morphology, subsequent encounter documented as of this encounter Results XR Femur Lt 2 Views (11/27/2021 9:59 AM CDT) Anatomical Region Laterality Modality Lower Extremity, Leg, Thigh Computed Rad iography Specimen (Source) Anatomical Collection Method Collection Time Re ceived Time Location / / Volume Laterality 11/27/2021 9:59 AM CDT Narrative 11/27/2021 10:20 AM CDT EXAM: XR FEMUR LT 2 VIEWS LOCATION: [place] [address] DATE/TIME: 11/27/2021 9:59 AM INDICATION: Open reduction internal fixa tion of left supracondylar distal femur fracture COMPARISON: 10/16/2021 IMPRESSION: ORIF of the left femur. No n ew hardware complication. Incomplete healing of a distal left femur fracture. Procedure Note Sebas Thompson MD - 11/27/2021Formatti ng of this note might be different from the original. EXAM: XR FEMUR LT 2 VIEWS LOCATION: [facility] [address] DATE/TIME: 11/27/2021 9:59 AM INDICATION: Open [...] r documented in this encounter Care Teams Tarring Machine Operator Relationship Specialty Start Date End Date Cintia Cobb MD PCP - General Family Practice 09/30/21 documented as of this encounter
--- OUTSIDE RECORDS SUMMARY | 2022-07-29 11:07 | XMS_ITS | Encounter Summary ---
:1960 Author [facility] Address [address] [place] [address] Care Team Providers Name Role Phone Cintia Cobb MD Primary Care Provider [phone] Reason for Visit Reason Comments QUESTIONS, GENERAL Encounter Details Date Type Department Care Team Description 10/14/2021 Telephone Specialty Center [address] Delgado Gottlieb MD QUESTIONS, GENERAL Orthopedics Clinic [address] [place] [address] [place] [address] [phone] Social History Tobacco Use Types Packs/Day Years [...] documented as of this encounter Nursing Notes Mary Lou Baumann, SIMEON - 10/14/2021 12:21 PM CST verified. Told I was to use ice on knee to take the soreness off. Ice is making it a lot worse,stiff and chilled. Inside knee, feels like a drill bit since surgery. I went out with crutches tis weekend and I did ok, maybe sat a little too long in the car. Using wedge pillow to elevate, top of slipper at my eyeball. No pain pills, don't like to take them, maybe had 4 total in the hospital. Khtky213 mg arthritis strength BID and ibuprofen 400 mg morning and night. Osteo Bi flex resumed. Not taking muscle relaxer. Ankle pumps. Felix off to ice, then felix back on for protection when I have my overalls on. Not taking ASA because I already bleed to easily. Yes, I have them but I am not going to take it. Denies swelling, N/T, fever or body aches. Denies drainage, redness or warmth. Denies pain with dorsiflexion, chest pain or SOB. Strongly recommend ASA daily for DVT prevention, acomplication of surgery that can be life threatening. Patient declined ASA, I am not going to take it. Recommend Tylenol 1000 mg TID alternating every 3 hours with Ibuprofen 600-800 mg. Recommend pain medication and or muscle relaxer prior to car ride to clinic appt on 10/16/21. 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 Continue to ice/elevate, increase frequency as mobility increases. Rosetta Garland RN to call and discuss ASA use with patient. Mary Lou Baumann RN 10/14/2021, 12:52 PM OR PROJECT MANAGER Jenniffer Carpenter RN - 10/14/2021 10:56 AM CST Called the patient's home number as this is what is bold in his chart. Left message for pt to call back at [phone] and press the option for [facility]. Jenniffer Carpenter RN 10/14/2021, 10:57 AM Jenni An - 10/14/2021 10:47 AM CST Ed called wanting to speak with Rosetta. He stated that it was urgent and need to speak with her JEY.Stair Builder had asked what it was regarding and patient had hung up the call. Ed also stated prior to thecall was disconnected that his phone does not incoming calls. Stair Builder was unable to get the best callback number. Please advise. Jenni Sanchez 10/14/2021, 10:49 AM OR PROJECT MANAGER documented in this encounter Plan of Treatment Upcoming Encounters Date Type Specialty Care Team Description 08/04/2022 Appointment Orthopedics Delgado Gottlieb MD [address] [place] [address] (Wo rk) 10/08/2022 Appointment Orthopedics Delgado Gottlieb MD [address] [place], [place] [address] (Wo rk) 05/27/2023 Appointment Chemo Therapy/Infusion Services documented as of this encounter Visit Diagnoses Not on filedocumented in this encounter Care Teams Bee Farmer Relationship Specialty Start Date End Date Cintia Cobb MD PCP - General Family Practice 09/30/21 documented as of this encounter
--- OUTSIDE RECORDS SUMMARY | 2022-07-29 11:07 | XMS_ITS | Encounter Summary ---
:1960 Author Organization [employer] Address [address] [place] [address] Care Team Providers Name Role Phone Cintia Cobb MD Primary Care Provider [phone] Reason for Visit Reason Comments QUESTIONS, GENERAL Encounter Details Date Type Department Care Team Description 01/03/2022 Telephone [facility] Cesar Champagne, QUESTIONS, GENERAL [address] [place], [place] [address] [address] [address] [place] [phone] (Wo rk) Social History Tobacco Use [...] encounter Nursing Notes Hermilo Mcghee RN - 01/06/2022 11:21 AM CDT Pt had taken flexeril and was having loose stools. Patient is not taking the flexeril and he is not having loose stools now. He has no problem with the methocarbamol but it doesn't work as well. He states the flexeril works better for him. He wants to see if he only takes the flexeril once daily if he can tolerate a lower dose since it works better. If he has loose stools he will not use anymore. Pt will call back if he has any other questions or concerns. Nathalia Stokes RN - 01/03/2022 9:45 AM CDT Left VM for patient to return call to further discuss his questions. Prema Staley - 01/03/2022 9:28 AM CDT Has the patient recently had surgery or an injury? Yes. Date of Surgery: October 07, 2021 Type of Surgery: Decomp-Foraminotomy L2-4 Bilat How may we help you today? Patient would like a call back from Dr. Scherer's care team. No additional information was provided. Please advise. Is it okay to leave detailed message on your voicemail? No [Assembly Riveter/Appt Center: If this call is after 3 p.m., communicate to patient: If we are not able to get back to you by the end of the day and your symptoms worsen please contact the Careline] documented in this encounter Plan of Treatment Upcoming Encounters Date Type Specialty Care Team Description 08/04/2022 Appointment Orthopedics Delgado Gottlieb MD [address] [place], [place] [address] (Gavi presley) 10/08/2022 Appointment Orthopedics Delgado Gottlieb MD [address] [place], [place] [address] (Gavi presley) 05/27/2023 Appointment Chemo Therapy/Infusion Services documented as of this encounter Visit Diagnoses Not on filedocumented in this encounter Care Teams Prototype Special Build Relationship Specialty Start Date End Date Cintia Cobb MD PCP - General Family Practice 09/30/21 documented as of this encounter
--- OUTSIDE RECORDS SUMMARY | 2022-07-29 11:08 | XMS_ITS | Encounter Summary ---
:1960 Author Organization [facility] Address [address] [place] [address] Care Team Providers Name Role Phone Cintia Cobb MD Primary Care Provider [phone] Reason for Visit Auth/Cert Specialty Diagnoses / Procedures Referred By Contact Refer red To Contact Diagnoses Closed fracture of left distal femur ([facility]C) Closed fracture of distal end of left femur, unspecified fracture morphology, initial encounter ([facility]C) Closed fracture of distal en d of left femur, unspecified fracture morphology, initial encounter ([facility]) Femur fracture Closed fracture of distal end of left femur, unspecified fracture morphology, i nitial encounter ([facility]C) Referral ID Status Reason Start Date Expiration Date Visits Requ ested Visits Authorized [id number] 1 1 Encounter Details Date Type Department Care Team Description 09/30/2021 Ancillary Procedure [facility] [address] [place] [id number] Social History Tobacco Use Types Packs/Day Years [...] Specialty Care Team Description 08/04/2022 Appointment Orthopedics Delagdo Gottlieb MD [address] [place] [phone] (Wo rk) 10/08/2022 Appointment Orthopedics Delgado Gottlieb MD [address] [place], [place] [phone] (Wo rk) 05/27/2023 Appointment Chemo Therapy/Infusion Services documented as of this encounter Procedures Procedure Name Priority Date/Time Associated Diagnosis Comme nts XR FEMUR LT 2 VIEWS STAT 09/30/2021 7:32 PM Re sults for this LOWER AP/LAT CHILD CARE DIRECTOR procedure are i n the results section. XR KNEE LT 2 VIEWS STAT 09/30/2021 7:32 PM Res ults for this CHILD CARE DIRECTOR procedure are i n the results section. XR PELVIS AP W STAT 09/30/2021 7:32 PM Results for this AP/LAT HIP LT CHILD CARE DIRECTOR procedure are in the results section. documented in this encounter Results XR Femur Lt 2 Views Lower AP/Lat (09/30/2021 7:32 PM CHILD CARE DIRECTOR) Anatomical Region Laterality Modality Lower Extremity, Leg, Thigh Computed Rad iography Specimen (Source) Anatomical Collection Method Collection Time Re ceived Time Location / / Volume Laterality 09/30/2021 7:32 PM CHILD CARE DIRECTOR Narrative 09/30/2021 7:41 PM CHILD CARE DIRECTOR EXAM: XR FEMUR LT 2 VIEWS LOWER AP/LAT LOCATION: [facility] DATE/TIME: 09/30/2021 7:32 PM INDICATION: Left distal femur fracture. Pain. Deformity. COMPARISON: X-ray left knee 2 views 09/08 at 1923 hours. IMPRESSION: Comminuted fracture involvin g the distal left femoral metaphysis. Associated soft tissue swelling and deformity. Mild degenerative changes left knee joint. Demineralization of the visualized bones. Vascular calcifications. Splint has been applied posteriorly for stabilization. Procedure Note Litzy Mcdermott MBBS - 09/30/2021Formattin g of this note might be different from the original. EXAM: XR FEMUR LT 2 VIEWS LOWER AP/LAT LOCATION: [facility] DATE/TIME: 09/30/2021 7:32 PM INDICATION: Left distal femur fracture. Pain. Deformity. COMPARISON: X-ray left knee 2 views 09/08 at 1923 hours. IMPRESSION: Comminuted fracture involvin g the distal left femoral metaphysis. Associated soft tissue swelling and deformity. Mild degenerative changes left knee joint. Demineralization of the visualized bones. Vascular calcifications. Splint h as been applied posteriorly for stabilization. Jonah Nova MD RAD GD XR Knee Lt 2 Views (09/30/2021 7:32 PM CHILD CARE DIRECTOR) Anatomical Region Laterality Modality Lower Extremity, Knee Computed Radiograp hy Specimen (Source) Anatomical Collection Method Collection Time Re ceived Time Location / / Volume Laterality 09/30/2021 7:32 PM CHILD CARE DIRECTOR Narrative 09/30/2021 7:38 PM CHILD CARE DIRECTOR EXAM: XR KNEE LT 2 VIEWS LOCATION: [facility] DATE/TIME: 09/30/2021 7:32 PM INDICATION: Left distal femur fracture COMPARISON: 09/30/2021 IMPRESSION: Acute comminuted fracture of the distal metadiaphysis of the femur. Interval decrease in displacement and angulation. Small knee joint effusion. Diffuse bony demineralization. Splint posteriorly. Procedure Note Wellington Conner MD - 09/30/2021Formatt ing of this note might be different from the original. EXAM: XR KNEE LT 2 VIEWS LOCATION: [facility] DATE/TIME: 09/30/2021 7:32 PM INDICATION: Left distal femur fracture COMPARISON: 09/30/2021 IMPRESSION: Acute comminuted fracture of the distal metadiaphysis of the femur. Interval decrease in displacement and angulation. Small knee joint effusion. Diffuse bony demineralization. Splint posteriorly. Jonah Nova MD RAD GD XR Pelvis AP W AP/Lat Hip Lt (09/30/2021 7:32 PM CHILD CARE DIRECTOR) Anatomical Region Laterality Modality Pelvis, Hip Computed Radiography Specimen (Source) Anatomical Collection Method Collection Time Re ceived Time Location / / Volume Laterality 09/30/2021 7:32 PM CHILD CARE DIRECTOR Narrative 09/30/2021 7:41 PM CHILD CARE DIRECTOR EXAM: XR PELVIS AP W AP/LAT HIP LT LOCATION: [facility] DATE/TIME: 09/30/2021 7:32 PM INDICATION: Left hip pain. Distal femur fracture after a fall. Prior proximal left femur fracture following surgical repair. COMPARISON: Outside CT left hip without IV contrast 08/30/2020. IMPRESSION: Demineralization of the visu alized bones. Degenerative changes lower lumbar spine and joints of the pelvis including the left hip joint. Intramedullary nail with proximal lag screw and dista l locking screw across healed proximal l eft femoral fracture deformity. Hardware is well seated with good alignment. Pelvic phleboliths. Vascular calcifications. Procedure Note Litzy Mcdermott MBBS - 09/30/2021Formattin g of this note might be different from the original. EXAM: XR PELVIS AP W AP/LAT HIP LT LOCATION: [facility] DATE/TIME: 09/30/2021 7:32 PM INDICATION: Left hip pain. Distal femur fracture after a fall. Prior proximal left femur fracture following surgical repair. COMPARISON: Outside CT left hip without IV contrast 08/30/2020. IMPRESSION: Demineralization of the visu alized bones. Degenerative changes lower lumbar spine and joints of the pelvis including the left hip joint. Intramedullary nail with proximal lag screw and distal locking screw across healed proximal left femoral frac ture deformity. Hardware is well seated with good alignment. Pelvic phleboliths. Vascular calcifications. Jonah Nova MD RAD GD documented in this encounter Visit Diagnoses Not on filedocumented in this encounter Care Teams Scientist Engineer Relationship Specialty Start Date End Date Cintia Cobb MD PCP - General Family Practice 09/30/21 documented as of this encounter
--- OUTSIDE RECORDS SUMMARY | 2022-07-29 11:08 | XMS_ITS | Encounter Summary ---
:1960 Author Organization [employer] Address [address] [place] [address] Care Team Providers Name Role Phone Cintia Cobb MD Primary Care Provider [phone] Encounter Details Date Type Department Care Team Description 09/23/2021 Notes/Orders [facility] Cesar Champagne, Acute pain [address] [place], [place] [address] [address] [place] [address] [place] [address] (Gavi rk) Social History Tobacco [...] Description 08/04/2022 Appointment Orthopedics Delgado Gottlieb MD [address] [place] [phone] (Gavi rk) 10/08/2022 Appointment Orthopedics Delgado Gottlieb MD [address] [place] [phone] (Wo rk) 05/27/2023 Appointment Chemo Therapy/Infusion Services documented as of this encounter Visit Diagnoses Diagnosis Acute pain documented in this encounter Care Teams Ophthalmology Surgical Technician Relationship Specialty Start Date End Date Cintia Cobb MD PCP - General Family Practice 09/30/21 documented as of this encounter
--- OUTSIDE RECORDS SUMMARY | 2022-07-29 11:08 | XMS_ITS | Encounter Summary ---
:1960 Author Organization [facility] Address [address], [place] [address] Care Team Providers Name Role Phone Cintia Cobb MD Primary Care Provider [phone] Reason for Visit Reason Comments Consult, New Patient Encounter Details Date Type Department Care Team Description 09/30/2021 Telephone [facility] , Consult, New Patient Orthopedics Clinic Provider [address] [place] [address] Social History Tobacco Use Types [...] documented as of this encounter Nursing Notes Mandy Bo LPN - 09/30/2021 3:53 PM CST Yimi HOGAN, calling from [facility] in [place]. Looking for treatment advice. Believes patient needs surgery. -Left Distal Femur Fracture, DOI: 09/30/21, ~7 am Discussed with Leta Daigle and Niyah Cintron. Advised to have [facility] call [facility] at [phone], and also have them push imaging to [facility]. Called Yimi back and notified him of this. Verbal order per Provider [facility]. Mandy Galindo LPN LIFE ENFORCEMENT MAJOR documented in this encounter Plan of Treatment Upcoming Encounters Date Type Specialty Care Team Description 08/04/2022 Appointment Orthopedics Delgado Gottlieb MD [address] [place], [place] [address] (Wo rk) 10/08/2022 Appointment Orthopedics Delgado Gottlieb MD [address] [place], [place] [address] (Wo rk) 05/27/2023 Appointment Chemo Therapy/Infusion Services documented as of this encounter Visit Diagnoses Not on filedocumented in this encounter Care Teams Road Engineer Freight Relationship Specialty Start Date End Date Cintia Cobb MD PCP - General Family Practice 09/30/21 documented as of this encounter
--- OUTSIDE RECORDS SUMMARY | 2022-07-29 11:08 | XMS_ITS | Encounter Summary ---
:1960 Author Organization [employer] [facility] Address [address] [place] [address] Care Team Providers Name Role Phone Cintia Cobb MD Primary Care Provider [phone] Encounter Details Date Type Department Care Team Description 10/02/2021 Orders Only [facility] S9 Suzie Daigle, PA-C [facility] [address] [place] [address] [place], [place] [id number] (Gavi presley) Social History Tobacco Use Types [...] 08/04/2022 Appointment Orthopedics Delgado Gottlieb MD [address] [place], [place] [address] (Gavi rk) 10/08/2022 Appointment Orthopedics Delgado Gottlieb MD [address] [place], [place] [address] (Gavi presley) 05/27/2023 Appointment Chemo Therapy/Infusion Services documented as of this encounter Visit Diagnoses Not on filedocumented in this encounter Care Teams Test Borer Relationship Specialty Start Date End Date Cintia Cobb MD PCP - General Family Practice 09/30/21 documented as of this encounter
--- OUTSIDE RECORDS SUMMARY | 2022-07-29 11:08 | XMS_ITS | Encounter Summary ---
:1960 [facility] Address [address] [place] [address] Care Team Providers Name Role Phone Kevin Bullock MD Primary Care Provider [phone] Reason for Referral Therapies (Routine) - New Request Specialty Diagnoses / Procedures Referred By Contact Refer red To Contact Diagnoses Closed fracture of distal end of left femur, unspecified fracture morphology, initial encounter (HRC) Martha Gottlieb MD [address] [place] [address] Referral ID Status Reason Start Date Expiration Date Visits V isits Requested Authorized [id number] New Request 10/03/2021 10/03/2022 1 1 Scheduling Instructions Your provider has recommended an appoint ment with a [facility] Physical Therapist. Call [facility] at . We suggest you call your health insurance company about your coverage an d benefits for this appointment. INIST CLASS B Consult/Transfer Care (Routine) - New Request Specialty Diagnoses / Procedures Referred By Contact Refer red To Contact Diagnoses Closed fracture of distal end of left femur, unspecified fracture morphology, initial encounter (HRC) Suzie Daigle PA-C [address] [place] [address] Referral ID Status Reason Start Date Expiration Date Visits V isits Requested Authorized [id number] New Request 10/02/2021 01/01/2023 1 1 Scheduling Instructions Your provider has recommended an appoint ment with [facility]. You may call to schedule your appointment. We suggest you call your health insurance company a bout your coverage and benefits for this appointment. INIST CLASS B Procedure/Equipment (Routine) - Incomplete Specialty Diagnoses / Procedures Referred By Contact Refer red To Contact Procedures Suzie Daigle PA-C XR Femur Lt 2 Views [address] [place] [address] Referral ID Status Reason Start Date Expiration Date Visits V isits Requested Authorized [id number] Incomplete 10/01/2021 12/31/2022 1 1 INIST CLASS B (Routine) - Incomplete Specialty Diagnoses / Procedures Referred By Contact Refer red To Contact Procedures Martha Gottlieb MD XR C-Arm 3.5-[address] [place], [place] [id number] [facility] XR C-Arm 2.5-3 Hours [place], [place] [address] Referral ID Status Reason Start Date Expiration Date Visits V isits Requested Authorized [id number] Incomplete 10/01/2021 12/31/2022 1 1 INIST CLASS B Procedure/Equipment (Routine) - Incomplete Specialty Diagnoses / Procedures Referred By Contact Refer red To Contact Diagnoses Closed fracture of distal end of left femur, unspecified fracture morphology, initial encounter (HRC) Jonah Nova MD Procedures Case Request OR - Orthopedic Surgery: OPEN REDUCTION INTERNAL FIXATION SUPRACONDYLAR DISTAL FEMUR FRACTURE, INSERTION INTRAMEDULLARY NAIL SUPRACONDYLAR DISTAL FEMUR FRACTURE [address] [place] [address] Referral ID Status Reason Start Date Expiration Date Visits V isits Requested Authorized [id number] Incomplete 09/30/2021 12/30/2022 1 1 INIST CLASS B Procedure/Equipment (Routine) - Incomplete Specialty Diagnoses / Procedures Referred By Contact Refer red To Contact Procedures Francisca Harvey MD XR Femur Lt 2 Views Lower [address] [facility] AP/[place] [address] XR Femur Lt 2 Views Referral ID Status Reason Start Date Expiration Date Visits V isits Requested Authorized [id number] Incomplete 09/30/2021 12/30/2022 1 1 INIST CLASS B Procedure/Equipment (Routine) - Incomplete Specialty Diagnoses / Procedures Referred By Contact Refer red To Contact Procedures Jonah Nova MD XR Knee Lt 2 Views [address] [place] [address] Referral ID Status Reason Start Date Expiration Date Visits V isits Requested Authorized [id number] Incomplete 09/30/2021 12/30/2022 1 1 INIST CLASS B Procedure/Equipment (Routine) - Incomplete Specialty Diagnoses / Procedures Referred By Contact Refer red To Contact Procedures Jonah Nova MD XR Pelvis AP W AP/Lat Hip Lt [address] [place] [address] Referral ID Status Reason Start Date Expiration Date Visits V isits Requested Authorized [id number] Incomplete 09/30/2021 12/30/2022 1 1 INIST CLASS B Reason for Visit Reason Comments FRACTURE Auth/Cert Specialty Diagnoses / Procedures Referred By [...] Expiration Date Visits Requ ested Visits Authorized [id number] 1 1 Encounter Details Date Type Department Care Team Description 09/30/2021 - Hospital Encounter RH S9 Jonah Nova MD [address] [place] [address] Closed fracture of distal end of left fe mur, unspecified fracture morphology, initial encounter (HRC) (Primary Dx); 10/03/2021 640 [facility] Josep Peck MD [address] [place] [address] Pain; [place], [place] Kay Mcadams, PA-C [address] [place] [address] Diabetes mellitus type II (HRC); [address] Martha Gottlieb MD [address] [place], [place] [id number] Diabetic peripheral neuropathy (HRC); [phone] Pain, lumbar re gion (HRC); Other chronic p ain; Essential hyper tension; Atrial flutter, unspecified type (HRC); Osteopenia, uns pecified location; Pacemaker; S/P gastric byp ass; Other fall on s estela level, initial encounter Social History Tobacco Use Types Packs/Day [...] Sign Reading Time Taken Comments Blood Pressure 128/76 10/03/2021 1:54 PM MACHINIST CLASS B Pulse 79 10/03/2021 1:54 PM MACHINIST CLASS B Temperature 37 ??C (98.6 ??F) 10/03/2021 1:54 PM MACHINIST CLASS B Respiratory Rate 18 10/03/2021 1:54 PM MACHINIST CLASS B Oxygen Saturation 95% 10/03/2021 1:54 PM MACHINIST CLASS B Inhaled Oxygen Concentration - - Weight 82.5 kg (181 lb 14.4 oz) 10/01/2021 2:00 AM MACHINIST CLASS B Height 182.9 cm (6') 10/02/2021 12:00 AM MACHINIST CLASS B Body Mass Index 24.67 10/01/2021 2:00 AM MACHINIST CLASS B documented in this encounter Discharge Summaries Suzie Daigle PA-C - 10/02/2021 8:50 AM CST [facility] Orthopedic Discharge Note Patient Name: Noemí Luna Date of : 1960 Admit Date/Time: Admit Date: 09/30/2021 5:33 PM Discharge Date: 10/03/2021 Service: Orthopedics Attending MD: Dr Gottlieb Admitting Diagnosis: Closed fracture of left distal femur (HRC) [S72.402A] Closed fracture of distal end of left femur, unspecified fracture morphology, initial encounter (HRC) [S72.402A] Closed fracture of distal end of left femur, unspecified fracture morphology, initial encounter (HRC) [S72.402A] Discharge Diagnosis: Closed fracture of left distal femur (HRC) [S72.402A] Closed fracture of distal end of left femur, unspecified fracture morphology, initial encounter (HRC) [S72.402A] Closed fracture of distal end of left femur, unspecified fracture morphology, initial encounter (HRC) [S72.402A] Encounter Diagnoses Name Primary? Closed fracture of distal end of left femur, unspecified fracture morphology, initial encounter (HRC) Yes ??? Pain Operations/Procedures: Procedure(s): OPEN REDUCTION INTERNAL FIXATION SUPRACONDYLAR DISTAL FEMUR FRACTURE INSERTION INTRAMEDULLARY NAIL SUPRACONDYLAR DISTAL FEMUR FRACTURE Consults: Medicine, PT, OT, Care Management Complications: None Patient Active Hospital Problem List: Past Medical History: Diagnosis Date ??? Kidney stones Allergies : Ciprofloxacin and Influenza virus vaccine Past Surgical History: Procedure Laterality Date ??? ELBOW SURGERY Left 08/18/2017 Left ulnar nerve submusculasr transposition ??? PACEMAKER INSERTION Brief History : Noemí Luna is a 61 year old male with a past medical history significant for chronic microcytic anemia, complete heart block, atrial flutter, type 2 diabetes, HTN, s/p gastric bypass, BPH who sustained a left distal femur fracture after slip and fall on ice. Risks and benefits of treatment options were discussed. Patient elected to proceed with surgical treatment and informed consent wasobtained. Hospital Course: Patient was admitted on Admit Date: 09/30/2021 5:33 PM and on 10/01/2021 underwent open reduction internal fixation of left supracondylar distal femur fracture, utilizing both plate and nail fixation by Dr. Gottlieb. There were no complications. The patient was admitted to the OrthopaedicService and followed by the Medicine service for multiple co-morbidities. The patient was started onpharmaceutical and mechanical DVT prophylaxis as well as prophylactic antibiotic therapy. However, the patient refused many of his medications (including aspirin 325mg), blood draws and his antibiotic therapy. POD#1 his hemoglobin came back at 5.6, however he refused blood transfusion. On POD#2 the patient was discharged to home with outpatient physical therapy. Discharge Medications: Discharge Medication List as of 10/03/2021 3:25 PM START taking these medications Details acetaminophen (TYLENOL) 500 MG tablet Take 2 Tablets by mouth three times a day. Maximum acetaminophen dose is 4000 mg in 24 hours Indications: Fever, Pain, Disp-180 Tablet, R-2, TID Starting Thu10/02/2021, Oral, E-Prescribing aspirin 325 MG tablet Take 1 Tablet by mouth daily for 28 days. Indications: DVT prophylaxis, Disp-28 Tablet, R-0, DAILY Starting Thu10/02/2021, Until Thu10/30/2021, For 28 days, Oral, E-Prescribing methocarbamol (ROBAXIN) 500 MG tablet Take 1 Tablet by mouth every 6 hours as needed. Indications: Musculoskeletal Pain, Disp-30 Tablet, R-0, Q6H PRN Starting Thu10/02/2021, Oral, E-Prescribing oxyCODONE (ROXICODONE) 5 MG immediate release tablet Take 1-2 Tablets by mouth every 4 hours as needed for Pain., Disp-5 Tablet, R-0, Q4H PRN Starting Thu10/02/2021, Oral, E-Prescribing CONTINUE these medications which have NOT CHANGED Details allopurinol (ZYLOPRIM) 300 MG tablet R-1, Starting 10/28/2016, Until Discontinued, Historical B-D 3CC LUER-ARIES SYR 25GX5/8 25G X 5/8 3 ML USE DIRECTED FOR CYANOCOBALAMIN INJECTION, R-12, DEMETRIS, Historical furosemide (LASIX) 40 MG tablet R-3, Starting 10/28/2016, Until Discontinued, Historical ibuprofen (MOTRIN) 200 MG tablet Take 2 Tabs by mouth every 6 hours as needed for Pain (Mild Pain). This may be safely mixed with the prescription pain medications (oxycodone, hydrocodone or tramadol.)?? This may also be safely mixed with acetaminophen., Disp-100 Tab, R-0, Q6H PRN Starti ng 08/18/2017, Until Discontinued, Oral, OTC omeprazole (PRILOSEC) 20 MG capsule Take 20 mg by mouth daily., R-11, DAILY Starting 05/28/2018, Until Discontinued, Oral, Historical Sennosides (SENOKOT OR) Historical STOP taking these medications acetaminophen (TYLENOL ARTHRITIS PAIN) 650 MG controlled release tablet Comments: Reason for Stopping: DVT Prophylaxis: ASA 325mg for 4 weeks Discharge Disposition: To home Discharge Orders (Non-med) Physical Therapy Comments: Evaluate and treat. References: Sari Melendrez Consult Page Glucose Testing Policy for Sari Melendrez Question Answer Comment Appointment Urgency? Non-Urgent Reason for Visit / Clinical Data? Pt with distal femur fracture status post IMN and plating. Requested Services Evaluate and treat May use saline for irrigation or cleansing Yes May use dexamethasone, saline, or acetic acid for iontophoresis? Yes May check glucose per protocol (see policy link below) or if patient has symptoms? Yes Contact Orthopedic Surgeon Comments: Contact Orthopedic Surgeon if considering discontinuing or changing the anticoagulation order. Contact information (name/clinic/phone number): Dr. Martha Gottlieb, When to Resume Normal Activities: Comments: You may resume normal activities as tolerated Other Discharge Instructions Comments: Weightbearing, Motion and Activity: Your weight bearing status on the operative extremity is as tolerated. If following weight bearing restrictions as listed above, you may otherwise resume your normal activities if you are able to tolerate them. However, athletic activities (swimming, bicycling, running, stop and go sports, etc.) should be avoided until permitted by your provider. Wound Care/Showering: A dressing must be kept [...] sponge baths until your follow up appointment. Tub bathing, swimming, or any other activities that cause your incision to be submerged should be avoided until allowed by your provider. Swelling and Pain Control: If able based on site of your surgery, during times of inactivity throughout the first two weeks after surgery, make an effort to decrease swelling by elevation of your operative extremity. You are encouraged to ice your surgical site for 20 minutes as often as twice per hour while awake. Place towel on your skin and apply the ice pack at the surgical extremity.These will help with swelling and pain control. You will be discharged with acetaminophen (tylenol) and narcotic (tramadol, oxycodone, hydromorphone, etc.) medication for pain management after surgery. Acetaminophen is most effective when taken per schedule outlined by your provider (every 4,5, or 8 hours as prescribed). You may safely use acetaminophen as prescribed for the first 4 weeks after surgery provided you do not exceed the maximum daily dose prescribed by your provider (usually 3000-4000mg). The narcotic pain medications should only be taken on an as needed basis when necessary and should be reserved for severe pain that is not controlled with scheduled acetaminophen. In the first 3 days following surgery, your symptoms may warrant use of the narcotic pain every 3, 4, or 6 hours as prescribed. After 3 days, focus your efforts on decreasing (tapering) use of narcotic medications. The most successful tapering strategy is to first decrease the dose (number of tablets) and second, decrease the interval (time in between doses). For example, if you begin with taking 2 tablets every 4 hours after surgery, start your taper by decreasing one of these doses to one tablet. Then decreaseanother dose to one table until you are taking one tablet every 4 hours. Once this is achieved, focus on increasing the number of hours between doses, moving from 1 tablet every 4 hours to 1 tablet every 6 hours. As tolerated, continue to increase the interval to 8-12 hours. Eventually, taper to one dose and discontinue when no longer needed. You should aim to be off the narcotic within two weeks after surgery. Under no circumstances are you permitted to drive while using narcotic pain medications. A common side effect of narcotic use is constipation, you are encouraged to take the prescribed stoolsofteners as long as you are using the narcotic. Blood Clot Prevention: You will be on 325 mg aspirin for 4 weeks to prevent blood clots. You may resume your regular aspirin dose after the 4 weeks, IF you took aspirin before surgery. Contact your physician: You may experience symptoms that require follow-up before your next scheduled appointment in 1-2 weeks. Please contact Surgeon's Office if you experience: 1. Pain at your surgical site that persists or worsens in the first few days after surgery. 2. Excessive redness or drainage of cloudy or bloody material from the wounds (clear red tinted fluid and some mild drainage should be expected) or drainage of any kind five days after surgery. 3. A temperature elevation greater than 101.5 4. Pain, swelling or redness in your calf 5. Numbness, or weakness in your surgical extremity 6. Any other questions you may have Orthopaedic/Sports Medicine Referral - Adult/Peds Comments: Date: 10/16/2021 Time: 10:20a Provider: Dr. Gottlieb [facility]: Orthopaedic & Sports Medicine; ( FAMILY OF CARE REFERRAL) [phone]; [address] [place] [id number] References: [facility] Connection Sari Melendrez Consult Page Question: Reason for visit? Answer: s/p ORIF IMN L femur Discharge Practitioner Electronic Signature Comments: Suzie Daigle PA-C 10/02/2021 8:43 AM These orders have been electronically signed. (In accordance with [place] Fed. Regulation Set, Fed A0232 - Types of Authentication) Weight bearing as tolerated Comments: You may resume normal weight bearing on the affected limb(s) as tolerated. Discharge Diet (see comments) Comments: Diabetic Follow Up: The patient will follow up with Martha Gottlieb MD in 2 weeks. At follow up, xrays should include L femur. This note completed by: Suzie Daigle PA-C INIST CLASS B documented in this encounter Discharge Instructions Discharge InstructionsAisha Workman RN - 10/03/2021 8:15 AM CST Clinic Phone Numbers ??? [facility]: [phone] ??? [facility]: [phone] Labs and Warfarin (Coumadin) Information No data found. This information has been sent to the following clinic:{[facility] FAX DESTINATION:[id number]} Incision Care ??? Always wash your hands with soap and clean warm water, then dry, before and after you touch yoursurgical site. ??? Do not remove the gauze or bandage until your follow-up appointment, unless your care team instructs you otherwise. ??? Shower as your care team instructs. ??? Do not put your incision under water, such as in a pool, bathtub, hot tub or arango, until approved by your clinician. Complete healing of the incision usually occurs in 3 to 4 weeks. ??? Call your care team with any questions. ??? Expect some redness, swelling and warmth around the surgical site. Call your care team if you are having any of these symptoms: ?? Fever of 101??F (38??C) or higher ?? Increasing or foul-smelling drainage from the incision ?? Increasing redness, swelling or discomfort around the incision ?? Bleeding from the incision that doesn???t stop Pain Management ??? Having pain and discomfort after surgery is normal. Most people will feel better after a short period of time. ??? Narcotics may be prescribed to you for short-term management of pain. It???s important to decrease the amount and frequency of these medications as soon as possible. Side effects of these medications include dependency, addiction, nausea, vomiting, depression, constipation, low sex hormones, breathing difficulty and . ??? Pain can often be controlled just as well without opioids. Other medicines used for pain management have much fewer side effects and less risk. Complementary therapies and self-care methods included in your pain management plan also are essential to pain control. For example, to reduce pain and swe lling: ?? Apply ice over your gauze or bandage. Use a cold pack or crushed ice. Do not place ice directly on your skin. Ice for 20 minutes every hour, if possible, throughout the day. ?? Keep your incision raised above the level of your heart if possible. ??? When you are in pain, you might avoid activity. However, when you have acute or surgical pain, staying in bed for most of the day can be harmful. While you can expect some discomfort, getting back to some regular activities is important in your recovery. Prolonged inactivity may increase stiffnessand pain. Bone Health ??? For a bone health assessment, especially if you have osteoporosis or decreased bone density, or have had a fracture, call [phone] to schedule an appointment. INIST CLASS B documented in this encounter Medications at Time [...] DIRECTED FOR 12 2017 25GX5/8 25G X 58 3 CYANOCOBALAMIN ML INJECTION diazePAM (VALIUM) 2 MG Take 1 Tablet (2 mg) 20 Tablet 0 tablet by mouth every 6 hours as needed for Muscle Spasms. furosemide (LASIX) 40 3 10/28/2016 MG tablet omeprazole (PRILOSEC) Take 20 mg by mouth 11 05/28 20 MG capsule daily. oxyCODONE (ROXICODONE) Take 1-2 Tablets (5-10 25 Tablet 0 0 01/27/2022 5 MG immediate release mg) by mouth every 4 tablet hours as needed for Pain. Sennosides (SENOKOT 0 OR) aspirin 325 MG tablet TAKE 1 TABLET BY MOUTH 28 Tablet 0 11/27/2021 DAILY FOR 28 DAYS. INDICATIONS: DVT PROPHYLAXIS ibuprofen (MOTRIN) 200 Take 2 Tabs by mouth 100 Tab 0 08/201701/27/2022 MG tablet every 6 hours as needed for Pain (Mild Pain). This may be safely mixed with the prescription pain medications (oxycodone, hydrocodone or tramadol.)?? This may also be safely mixed with acetaminophen. methocarbamol Take 1 Tablet by mouth 30 Tablet 0 10/02/2021 10/23/2021 (ROBAXIN) 500 MG every 6 hours as tabletIndications: needed. Indications: Musculoskeletal Pain Musculoskeletal Pain oxyCODONE (ROXICODONE) Take 1-2 Tablets by 5 Tablet 0 09/0810/16/2021 5 MG immediate release mouth every 4 hours as tablet needed for Pain. documented as of this encounter Progress Notes Edward Thompson MD - 10/03/2021 5:27 AM CST [facility] Orthopedic Surgery Progress Note Subjective: Patient sleeping comfortably this morning; attempted to wake but patient declined to answer questions and went back to sleep. Continues to refuse cares. Hgb 5.6 yesterday but declined transfusion. Still refusing prophylactic antibiotics. Objective: Vitals: 10/02/21 2119 BP: 113/68 Pulse: 77 Resp: 18 Temp: 98.2 ??F (36.8 ??C) Exam: Gen: No acute distress, alert, oriented, comfortable, cooperative Resp: Non labored respirations on RA CV: RRR, extremities warm MSK: LLE: - Dressing c/d/i - Sensation intact in DP, SP, Sural, Saphenous, and Tibial nerve distributions - Fires quads, TA, GSC, EHL, & FHL - 2+ DP pulses, toes warm and well perfused Labs: Hemoglobin (g/dL) Date Value 10/02/2021 5.6 (LL) 09/30/2021 6.0 (LL) 09/30/2021 5.8 (LL) A/P: Noemí Jim Luna is a 61 y.o. male with a distal left femur fracture s/p ORIF and insertion of IMN on 10/01/[address] Gottlieb. At this time, the patient is refusing the majority of all cares including prophylactic antibiotics and blood transfuion. - Medicine consulted, appreciate assistance - Pain control: transition from IV to orals as tolerated. - WB status: WBAT with walker - Antibiotics: Ancef x 24 hours - DVT Prophylaxis: ASA 325mg and mechanical while in hospital to start POD#1, discharge on ASA 325mgx 4 weeks. - Munoz: Removed immediately post-operatively - X-rays: L femur POD#1. - PT/OT: Eval and treat. - Elevation: Operative extremity when at rest as needed - Hgb: POD#1, 2 and 3 - Dressings: Leave surgical dressing in place until POD#5 unless soiled. - Diet: Begin with fluids and progress as tolerated. - Dispo: possible dc home today - F/U: Martha Gottlieb MD in 2 weeks with left femur x-rays needed. Edward Thompson MD Orthopedic Surgery, PGY-2 Pager: [phone] INIST CLASS B Kay Mcadams PA-C - 10/02/2021 2:52 PM CST Brief Hospital Medicine Note: Non-billable 10/02/21 Chart reviewed and discussed with orthopedic surgery team. Security needed to be called last night. Pt making racial and intolerant comments. Pt removed his IV and refused replacement. He has refused prophylactic antibiotics and blood transfusion despite ongoing education, to which he verbalized understanding. VS currently stable. Nursing cares to be reduced as much as possible and medical care beingdriven by what pt is agreeable to, which is minimal. PT/OT to assess pt's safety to return home. As agreed upon by orthopedic surgery, given pt's refusal of majority of medical cares, HM will follow peripherally. Please call with any questions or concerns. Kay Mcadams PA-C Department of Hospital Medicine INIST CLASS B Nathen Burger MD - 10/02/2021 10:25 AM CST Brief Orthopedic Surgery Note: The patient's hemoglobin returned at 5.6. Discussed the hemoglobin level with the patient and discussed that we would recommend transfusing as the hemoglobin is under 7.0. Discussed the risks and benefits of blood transfusion with the purpose to improve his oxygen carrying capacity. At this time, the patient verbalized that he would decline a blood transfusion and verbalized his understanding of boththe risks and benefits of blood transfusion. The patient was able to stand up and denied any lightheadedness or shortness of breath. Will continue to monitor. Nathen Burger MD INIST CLASS B Nathen Burger MD - 10/02/2021 5:07 AM CST [facility] Orthopedic Surgery Progress Note Subjective: Last evening patient was agitated that his could not come to his room. He was beingverbally abuse towards nursing staff. He was using racial slurs toward security. Patient requesting to leave hospital and IV's were removed. Unable to get a hold of his as he would not give us hernumber or use the hospital phone. The patient then agreed to stay. Limited vital checks as patient was refusing. Attempted to give IM ancef but patient refused. Pain is controled. Not requiring any PRN medications overnight. Tolerating diet. Objective: Vitals: 10/01/21 1831 BP: 125/76 Pulse: 69 Resp: 18 Temp: 98 ??F (36.7 ??C) Exam: Gen: No acute distress, alert, oriented, comfortable, cooperative Resp: Non labored respirations on RA CV: RRR, extremities warm MSK: LLE: - Dressing c/d/i - Sensation intact in DP, SP, Sural, Saphenous, and Tibial nerve distributions - Fires quads, TA, GSC, EHL, & FHL - 2+ DP pulses, toes warm and well perfused Labs: Hemoglobin (g/dL) Date Value 09/30/2021 6.0 (LL) 09/30/2021 5.8 (LL) A/P: Noemí Luna is a 61 y.o. male with a distal left femur fracture s/p ORIF and insertion of IMN on 10/01/[address] Gottlieb. At this time, the patient is refusing the majority of all cares. He refusedIM Ancef overnight. It was discussed with the patient that antibiotics would be for infection prophylaxis, but the patient refused. Discussed with the patient that he was anemic prior to surgery and would potentially benefit from blood transfusions; however, patient is refusing blood draws and blood transfusions. We would like to have the patient evaluated by PT/OT to determine if he would be safe going home andthis was discussed with the patient. - Medicine consulted, appreciate assistance - Pain control: transition from IV to orals as tolerated. - WB status: WBAT with walker - Antibiotics: Ancef x 24 hours - DVT Prophylaxis: ASA 325mg and mechanical while in hospital to start POD#1, discharge on ASA 325mgx 4 weeks. - Munoz: Removed immediately post-operatively - X-rays: L femur POD#1. - PT/OT: Eval and treat. - Elevation: Operative extremity when at rest as needed - Hgb: POD#1, 2 and 3 - Dressings: Leave surgical dressing in place until POD#5 unless soiled. - Diet: Begin with fluids and progress as tolerated. - F/U: Martha Gottlieb MD in 2 weeks with left femur x-rays needed. Patient discussed with Dr. Gottlieb who also evaluated the patient. Nathen Burger MD, PGY-1 [facility] Orthopedic Surgery Pager: [phone] 10/02/2021 5:07 AM INIST CLASS B Anika Lazo RN - 10/01/2021 4:21 PM CST I completed a full assessment and assessments as ordered and per policy on this patient during my work shift. Reassessments completed during my work shift are unchanged unless documented. INIST CLASS B Kay Mcadams PA-C - 10/01/2021 4:00 PM CST Brief HM Note Unable to see patient today as he has been in the OR. Recommend repeat Hgb and consideration of IV iron if pt agreeable. Medicine will f/u tomorrow. Kay Mcadams PA-C Department [facility] Medicine INIST CLASS B Josep Cervantes MD - 10/01/2021 5:40 AM CST [facility] Orthopedic Surgery Progress Note Subjective: Patient receiving first unit of blood this morning. He finally agreed, but stated that it is bullshit that we won't draft a letter saying he will yudi us if he gets HIV or Hep C from the transfusion. He said that he will leave the hospital if his surgery is delayed past noon. His pain is quite poorly controlled, but he is refusing all pain meds beyond toradol. Objective: Vitals: 10/01/21 0343 BP: 125/80 Pulse: 66 Resp: 18 Temp: 98.6 ??F (37 ??C) Exam: Gen: No acute distress, alert, oriented, comfortable, cooperative Resp: Non labored respirations on RA CV: RRR, extremities warm MSK: LLE: - KI in place - Patient unwilling to allow me to touch his legs Labs: Hemoglobin (g/dL) Date Value 09/30/2021 6.0 (LL) 09/30/2021 5.8 (LL) Imaging: Complete A/P: Noemí Luna is a 61 y.o. male with left distal femur fracture who will be going to the OR on 10/01with Dr. Gottlieb - doing well. -Medicine consulted, appreciate assistance -Weight bearing status: NWB LLE -Bracing/Splinting: KI in place until OR -Dressings: None -Antibiotics: Ancef/Clindamycin x 24 hours -Pain control: PO and IV pain medication for breakthrough, transition to orals as able -Diet: Begin with fluids and progress diet as tolerated -DVT PPx: Hold for OR and mechanical. -Labs: Complete -Imaging: Complete -PT/OT: Eval & treat ROM, ADL's. -Disposition: Pending PO pain control and progress with PT/OT - likely discharge to home in 2-4 days. F/U: TBD Josep Cervantes MD, PGY-2 [facility] Orthopedic Surgery Pager: [phone] 10/01/2021 5:41 AM INIST CLASS B documented in this encounter Procedure Notes Suzie Daigle PA-C - 10/01/2021 2:04 PM CST Brief Operative Progress Note Surgery Date: 10/01/2021 Surgeon(s) and Role: * Martha Gottlieb MD - Primary * Suzie Daigle PA-C - Assisting * Keyla Gilbert APRN, CNP - Assisting * Delmer Romano MD - Resident - Assisting * Jennifer Barney MD - Fellow Pre-op Diagnosis: * Closed fracture of distal end of left femur, unspecified fracture morphology, initial encounter (HRC) [S72.402A] Post-op Diagnosis: * Closed fracture of distal end of left femur, unspecified fracture morphology, initial encounter (HRC) [S72.402A] Procedure(s) (LRB): OPEN REDUCTION INTERNAL FIXATION SUPRACONDYLAR DISTAL FEMUR FRACTURE (Left) INSERTION INTRAMEDULLARY NAIL SUPRACONDYLAR DISTAL FEMUR FRACTURE (Left) Complications / Findings: No complications / See full dictated report for findings. Anesthesia: General EBL: 250 cc Tourniquet: 19 minutes at 300 mmHg Postoperative Plan: - Pain control: transition from IV to orals as tolerated. - WB status: WBAT with walker - Antibiotics: Ancef x 24 hours - DVT Prophylaxis: ASA 325mg and mechanical while in hospital to start POD#1, discharge on ASA 325mgx 4 weeks. - Munoz: Removed immediately post-operatively - X-rays: L femur POD#1. - PT/OT: Eval and treat. - Elevation: Operative extremity when at rest as needed - Hgb: POD#1, 2 and 3 - Dressings: Leave surgical dressing in place until POD#5 unless soiled. - Diet: Begin with fluids and progress as tolerated. - F/U: Martha Gottlieb MD in 2 weeks with left femur x-rays needed. Suzie Daigle PA-C INIST CLASS B Martha Gottlieb MD - 10/01/2021 12:00 AM CST NAME: NOEMÍ LUNA CSN: [id number] OPERATIVE REPORT DATE OF SURGERY: 10/01/2021 : 1960 SURGEON: MARTHA GOTTLIEB MD SURGICAL ASSISTANTS: 1. Jennifer Barney M.D. 2. Delmer Romano M.D. PREOPERATIVE DIAGNOSES: 1. Left supracondylar distal femur fracture. 2. Status post slip and fall on ice, landing directly onto the left knee. 3. Chronic microcytic anemia, (hemoglobin 5.8 on arrival). 4. Complete heart block, status post pacemaker. 5. Atrial flutter. 6. Type 2 diabetes mellitus with peripheral neuropathy. 7. Hypertension. 8. Status post gastric bypass surgery. 9. Benign prostatic hyperplasia. 10. History of left intertrochanteric femur fracture, status post short intramedullary nailing two years ago. POSTOPERATIVE DIAGNOSES: 1. Left supracondylar distal femur fracture. 2. Status post slip and fall on ice, landing directly onto the left knee. 3. Chronic microcytic anemia, (hemoglobin 5.8 on arrival). 4. Complete heart block, status post pacemaker. 5. Atrial flutter. 6. Type 2 diabetes mellitus with peripheral neuropathy. 7. Hypertension. 8. Status post gastric bypass surgery. 9. Benign prostatic hyperplasia. 10. History of left intertrochanteric femur fracture, status post short intramedullary nailing two years ago. NAME OF PROCEDURE: Open reduction internal fixation of left supracondylar distal femur fracture, utilizing both plate and nail fixation. INDICATIONS FOR PROCEDURE: Mr. Luna is a 61-year-old male with the above medical comorbidities who sustained an injury to his left distal thigh on the day prior to surgery when he slipped and fell on ice, landing directly onto the knee. He was unable to bear weight after the injury. He was brought to [facility] emergency department, where he was found to have a comminuted and displaced left supracondylar distal femur fracture. This was a closed injury, and he was neurovascularly intact. Of note, the patient had sustained an ipsilateral left intertrochanteric femur fracture in August of 2019for which he underwent short intramedullary nailing in [place], [place]. Prior to this most recent injury, the patient was ambulatory with a cane. 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 He lives with his and a dog. The patient was admitted to the hospital in anticipation for surgery on the day after injury. Unfortunately, after admission, he was quite resistant to our medical care and recommendations. Most notably, he was refusing a blood transfusion despite his initial hemoglobin of 5.8 on arrival. He stated that this was because of his concern for heather an infection and that he could not trust those whoscreened the blood for safety. Fortunately, the patient eventually agreed to a blood transfusion which was administered earlier on the morning of surgery. A post-transfusion hemoglobin check was 8.5, and therefore we felt safe proceeding with surgery. The patient was also initially resistant to other of our requests including removing his jewelry as well as performing his preoperative chlorhexidine scrub. After a discussion with myself about the necessity of these, he was eventually agreeable to this. Then, in the preoperative holding area, the patient expressed a desire to be kept DNR status during the procedure, despite his full code status in our computer. He also stated that he would refuse any more blood products, even in case of emergency. I clarified very clearly this wish with the patientin the preoperative holding area that he would rather from anemia than receive blood with an exceedingly low chance for heather an infection. I also reminded him that all infections that could even potentially be transmitted from a blood transfusion are in fact quite treatable with medication.The patient, at this point, became quite upset because I was preaching to him and ordered me to leave his room, using some expletives in doing so. Nevertheless, I did document the patient's wish to not receive any blood products during the procedure. Besides the above discussion, I did review my plan to utilize both a plate and intramedullary nail for fixation of this fracture. The goal in doing this would be to permit immediate weight-bearing as tolerated after the surgery and also hopefully expedite his return to work since this seems to be quite important for him. Risks of the procedure were discussed including infection, bleeding, nerve or blood vessel injury, nonunion/malunion, failure of fixation, symptomatic hardware, and the potential need for additional procedures. He elected to proceed, and informed consent was obtained. DESCRIPTION OF PROCEDURE: The patient was met in the preoperative holding area where consent was verified and the surgical site was marked. He was taken to the operating room where induction of anesthesia proceeded uneventfully. A Munoz catheter was placed, given the anticipated duration for the procedure. He was then positioned supine on the operating room table and all bony prominences were padded.The left lower extremity was then prepped and draped in the usual sterile fashion. A blanket bump had been placed under the left hip in order to internally rotate the leg just a bit. The patient received a preoperative dose of IV cefazolin as well as tranexamic acid prior to incision. A surgical time-out was performed with all members of the team verifying the correct patient and surgical site. My plan was to first place the distal femur locking plate, such that we could use this tofine tune our reduction, and then proceed with intramedullary nailing. Therefore, a standard lateralapproach to the distal femur was conducted. This was an approximately 6 cm to 7 cm longitudinal incision extending from the lateral aspect of the distal thigh toward Gerdy tubercle. Sharp dissection proceeded down to the level of the IT band, which was then sharply incised in line with the incision. At this point, we did encounter the fracture hematoma as well as some hemarthrosis which was drained. The distal edge of the vastus lateralis was then elevated off the lateral intermuscular septum using Bovie electrocautery, such that we could access the lateral aspect of the distal femur. In doing so, we did encounter several vessels that needed to be coagulated. Unfortunately, the bleeding from thesewas brisk enough that I ultimately elected to use a sterile tourniquet to avoid any excessive bleeding while we gained control, given the patient's wish to avoid any blood transfusions. This tourniquetwas placed on the proximal thigh and was then exsanguinated to 300 mmHg. Appropriate hemostasis was then achieved and a periosteal surfer was used to elevate the muscle off the lateral aspect of the bone proximally. A 2.0 mm Steinmann pin was then placed into the proximal tibia for traction. This was attached to the Suni tensioning traction bow and hung to 20 pounds of weight off the distal end of the bed. This pulled the fracture out to length quite nicely, but it did want to pull us into somevalgus. We were able to correct this by adjusting the traction vector as well as applying a slight varus force to the knee. After verifying that our fracture was out to length on the AP view, we selected the longest available titanium VA locking condylar plate (18 holes) in order to overlap this fixation with his prior short nail proximally. This plate was attached to the insertion handle and then slid up the lateral aspect of the femoral shaft. Appropriate plate position distally was verified with intraoperative fluoroscopy on both the AP and lateral views. We then placed the guide pin through the central screw, taking care to ensure that this was parallel to the joint line to keep our coronal alignment appropriate. Pro ximally, we adjusted the position of the plate such that it followed the flow of the femoral bow on the lateral view. We also tried to position this very slightly anterior, such that we could hopefullyget bicortical screws anterior to the nail. This was then wired in place proximally at the #18 hole.We did use 3- 4 towel bumps under the fracture site to correct a slight extension/recurvatum deformity, and this seemed to work quite effectively. A single 4.5 mm cortical screw was then placed into theshaft portion of the plate, just distal to the tip of the short nail. This pulled the plate down to bone very nicely. Placement of this screw did require removal of the tourniquet and we verified appropriate hemostasis after tourniquet deflation. We then placed an additional wire in the distal portionof the plate to hold the rotation of the distal fragment. At this point, we were very happy with our alignment on the lateral view, but on the AP view it still looked to me like there was a bit of a golf-club deformity with lateral translation of the femoral shaft relative to the articular block. I, therefore, utilized a small blunt tip locking screw throughone of the more distal holes in the shaft portion of the plate to push the shaft back medial. We didthis without drilling the lateral cortex, such that the screw would push the bone instead of engage into the cortex. This actually worked quite nicely. We then proceeded with placement of several locking screws into the distal and shaft portions of the plate. Several of these were kept unicortical to remain out of the way of our nail. With our reduction provisionally secured from the lateral locking plate, we turned our attention to placement of the intramedullary nail. The bone foam ramp was removed from under the drapes and the leg placed up on a sterile knee triangle. A 3 cm longitudinal incision was made over the mid-aspect of the patellar tendon. Sharp dissection proceeded down to the level of the paratenon, which was then sharply incised in line with the incision. The patellar tendon was then divided longitudinally in line with its fibers. The guide pin for the intramedullary nail set was then introduced through this splitand down onto the bone of the distal femur. Appropriate start point and trajectory were verified on the AP and lateral views. We purposely tried to get our nail insertion site slightly more posterior to be out of the way of the screws from the lateral plate as well as to accommodate the 5-degree bend of the retrograde nail. This was then driven several centimeters into the distal femur. The cannulated entry reamer was then introduced over this guide pin and used to open the distal femoral canal. This reamer did run into one of the screws from the lateral plate, and this did have to be removed and redirected more anteriorly. After verifying our fracture remained reduced on both the AP and lateral views, the ball-tipped guidewire was then introduced up the distal femur and proximally to the level of the 4.5 mm cortical screw just distal to the short nail. We measured the length of this and felt that a 260 mm length nail would be appropriate. We reamed up to 12.5 mm in diameter for placement of an11 mm diameter nail. Not surprisingly, we had very little, if any, resistance from these reamers andcertainly no cortical chatter. An 11 x 260 mm length Synthes RFNA femoral nail was selected and attached to the insertion handle. This was gently impacted up the femoral canal over the ball- tipped guidewire. The nail insertion depthand rotation were set, such that we could get the distal-most transverse interlocking screw through one of the holes of the VA locking condylar plate. This did require us to externally rotate the nail slightly from its normal position. This screw was placed through the aiming arm without difficulty and locked into the plate. We then proceeded with placement of two additional 5.0 mm interlocks from the medial side using the aiming arm. We were unable to place the oblique screw from the lateral side, as this contacted the anterior border of our lateral plate. Nevertheless, I felt that three distal interlocks including one through the lateral plate would be sufficient. The proximal two anterior to posterior interlocks in the nail were then placed using perfect circles technique. The nail insertion handle was then removed. We replaced all of the short distal locking screws in the lateral plate with longer screws shooting around the nail. We then removed the most distal of our unicortical locking screws in the shaft to increase the working length of the construct. The push screw was left in placesince it was helping to maintain our coronal alignment. The aiming arm for the lateral plate was then removed. We placed two VA locking screws in the proximal portion of the plate, directed just anterior to the nail. These were both bicortical. Final fluoroscopic images demonstrated an excellent quality reduction of the fracture as well as appropriate implant positioning throughout. The wounds were copiously irrigated with sterile saline through bulb syringe. Particular care was taken to irrigate out the knee to try to remove any remaining reaming debris. The paratenon was closed with 0 Vicryl [id number] sutures. The IT band laterally was closed with #1 Vicryl [id number] sutures. All skin incisions were then closed with 2-0 Vicryl buried deepdermal sutures and chapis. A sterile compressive dressing was then applied and finally the leg was wrapped in a double length 6-inch Carmita wrap. The patient was transferred back to his hospital bed, andthe Munoz catheter was removed. He was awoken from anesthesia without incident and [facility] condition. COMPLICATIONS: None. ESTIMATED BLOOD LOSS: 250 cc. TOURNIQUET TIME: 19 minutes at 300 mmHg. SPONGE AND NEEDLE COUNTS: Correct x2. IMPLANTS: 1. Synthes titanium VA locking lateral distal femur plate (18 holes). 2. Synthes RFNA retrograde femoral nail (11 x 260 mm). POSTOPERATIVE TREATMENT PLAN: The patient will be permitted to weight bear as tolerated on his left lower extremity using a walker for assistance. He can range the hip and the knee as he feels comfortable. He will receive 24 hours of Ancef for infection prophylaxis and 4 weeks of aspirin 325 mg daily for DVT prophylaxis. Ordinarily, I would place a patient on Lovenox for DVT prophylaxis, but given this patient's behavior prior to the procedure, I have very little confidence that he would actually take Lovenox. Therefore, I feel that aspirin would be the best option for him. Left femur radiographs will be obtained on postoperative day 1. We will plan for a followup in approximately two weeks with myself in the clinic for wound check, staple removal, and repeat left femur radiographs. ATTESTATION OF PRESENCE: I, Martha Gottlieb, was the attending physician for this procedure and was present and scrubbed for all critical portions of the case. I was immediately available for all the portions of the procedure. MARTHA GOTTLIEB MD RDW/AQS /[id number] INIST CLASS B documented in this encounter Consult Notes Jaja Amor PA-C - 10/02/2021 10:40 AM CSTAssociated Order(s): ENDOCRINE CONSULT See consult note 10/01. Will continue to follow peripherally x24 hours. Glucose remains stable. Jaja Amor PA-C Endocrinology INIST CLASS B Padmini Lima APRN, CNP - 10/01/2021 2:36 PM CSTAssociated Order(s): ENDOCRINE CONSULT Endocrine consult for glucose management protocol. no known DM. Currently in OR, blood sugar is stable. Will monitor fingerstick blood sugars and utilize prn humalog sliding scale as needed Endocrine will continue to monitor peripherally x 24 hours, and will then sign off if blood sugars stay normal/stable. Full consult will be done at a later time if needed. Please page endocrine with any questions/concerns. Thank you, Padmini Lima APRN, KORIN, Endocrinology nonbillable INIST CLASS B Keyla Gilbert APRN, CNP - 10/01/2021 7:20 AM CSTAssociated Order(s): OSTEOPOROSIS CONSULT Inpatient Bone Health Consult DOS: 10/03/21 History of Present Illness Ed Jim Luna is a 61 y.o. old male who was referred for a bone health evaluation. He presented on 09/30 as a transfer from an OSH after a ground level fall. He slipped and fell on icethe morning of presentation. He was unable to bear weight. A left displaced comminuted distal femur fracture was noted. He was placed in a KI and then underwent ORIF and IMN L femur on 10/[address] Gottlieb, made WBAT with walker. Of note, he is s/p L femur IMN on 08/12/19 (Dr. Norman, Forest Reyes MD) after a L IT fx Today, he is doing moderately well and continues to refuse many cares. Painful but tolerable. DeniesCP, SOB, n/v, n/t (although notes his [place] is this place). Working with therapies. D/c dispo TBD. 6' (1.829 m) 82.5 kg (181 lb 14.4 oz) Primary indication(s) for Bone Health Evaluation: Established osteopenia/osteoporosis Osteoporosis Treatment History Fosamax, unclear id taking or duration, would not discuss it Fracture and Bone Health History The patient has not been previously evaluated for osteoporosis. Previous Low Trauma Fracture(s): L IT fx History of fracture at age 50 or over: L IT fx History of stress fractures: denies History of delayed union/nonunion: denies Height Loss: Less than 1 inch Other History Family History of Osteoporosis and/or Low Trauma Fracture: No Nutrition History of Eating Disorder: None Calcium Intake: less than 1200 mg daily likely Vitamin D Intake: Less than 800IU daily likely Current Level of Activity and Fall Risk Current Level of Physical Activity/Weight Bearing Exercise: Somewhat active (walking some but less than 2 miles per day). 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 PHYSICAL EXAM BP 119/77 Pulse 69 Temp 98 ??F (36.7 ??C) (Oral) Resp 18 Ht 6' (1.829 m) Wt 82.5 kg (181 lb 14.4 oz) SpO2 96% BMI 24.67 kg/m?? GENERAL APPEARANCE: Alert and minimally cooperative, appears the stated age. No acute distress. HEAD: Normocephalic. Dental Hygeine: Fair. EYES: Vision intact to the written word. EARS: Hearing intact to the spoken word. NECK: Neck supple, no thyromegaly, no lymphadenopathy. CARDIAC: All 4 extremities are warm and well perfused. Capillary refill is less than 2 seconds. Peripheral pulses intact. LUNGS: No respiratory distress, no audible wheezing. MUSCULOSKELETAL: Moves all 4 extremities on command. No joint erythema. NEUROLOGICAL: No focal nerve deficit. SKIN: Skin normal color, texture and turgor with no lesions. No pretibial myxedema. PSYCHIATRIC: Mood and affect are within normal limits. IMAGING/LABORATORY: Previous DXA Results: osteoporosis Date of BmD test: 11/09/19 Lumbar Spine Tscore: -1.8 Lumbar Spine BmD g/cm2: 1.012 Femoral neck Tscore: -1.2 Femoral neck BmD g/cm2: 0.697 Distal forearm Tscore: -3.3 Distal forearm BmD g/cm2: 0.628 Type of densitometer: unknown Pertinent Lab Results Vitamin D, 25-OH, Total Date Value Ref Range Status 10/02/2021 58 30 - 80 ng/mL Final Intact PTH (pg/mL) Date Value 10/02/2021 96 Calcium (mg/dL) Date Value 10/02/2021 8.4 Hemoglobin (g/dL) Date Value 10/02/2021 5.6 (LL) Normal: 12-17 Creatinine (mg/dL) Date Value 10/02/2021 0.96 GFR, Estimated (mL/min/1.73m2) Date Value 10/02/2021 >60 TSH, Sensitive (uIU/mL) Date Value 10/02/2021 0.31 Alkaline Phosphatase (U/L) Date Value 10/02/2021 42 Estimated Creatinine Clearance: 86.4 mL/min (by C-G formula based on SCr of 0.96 mg/dL). Serum creatinine: 0.96 mg/dL 10/02/21 0822 Estimated creatinine clearance: 86.4 mL/min CONSULTATION ASSESSMENT AND PLAN 1) Osteoporosis, DM2, s/p gastric bypass, noncompliance I reviewed the diagnosis and discussed potential long-term sequelae with the patient. They would benefit from a comprehensive plan to reduce their fracture risk.This includes: ?? Begin weight-bearing exercise/fall prevention program as tolerated once physically able and cleared by ortho ?? Begin calcium (1200mg daily) and Vitamin D (800-2000 IU daily) through diet and/or supplements. ?? Smoking cessation and/or alcohol reduction counseling provided ?? Obtain outpatient DXA to eval bone density. Deferred. ?? Additional inpatient labs: ordered, stable ?? Follow-Up: 6 week in outpatient bone health clinic. Deferred, will continue care with existing bone health team ?? Anticipated dispo: TBD Today I attempted to discuss with him the fracture, surgery and expected recovery. He would not answer the majority of questions and is not interested in discussing his bone health with me. Total time for this visit was 50 minutes. Over 50% of the time was spent in counseling and coordination of care for the patient. Keyla Gilbert APRN, KORIN INIST CLASS B Ted Burdick MD - 09/30/2021 9:29 PM CST [facility] Pre-operative Exam Patient Name: Noemí Luna Date of : 1960 Date of Service: 09/30/2021 Primary Practitioner: Kevin Valentin MD, Assessment and Plan: Noemí Luna is a 61 y.o. old male is undergoing a pre-operative medical evaluation. Pre-operative cardiac evaluation: This patient???s predictive cardiac risk is: 0.2 % Risk of myocardial infarction or cardiac arrest, intraoperatively or up to 30 days post-op per JACKSON. 3.9 % 30-day risk of , OH, or cardiac arrest per RCRI. Neither of these calculators include severe anemia and I am concerned that this is his biggest risk factor. I reviewed that Hemoglobin of 6 is much lower than normal and even those patients NOT undergoing surgery, we would advise transfusion at this low a level. He is hesitant to get transfusion as he does not trust anyone else's blood. He tells me that he has refused blood transfusions in the past as has been recommended by his PCP. Despite my extensive explanations of risks of anemia pre-operatively (OH, , etc) and screening for infections of donated blood/transfusions being very safe, patient remains unconvinced. If you're going to keep talking about this, you can just go outthat door. I offered to call his and discuss as well, as additionally she manages his medications, but he does not agree to this either. I again reiterated that he is taking an unnecessary risk with very low blood counts. Will defer to orthopedics team to review this with patient again as further conversation with me makes him upset. At this point, I do not believe that patient is optimized forsurgery. Ordered EKG to ensure paced appropriately. From Apoorva 2017, based on pooled data from 5 high quality external validations (4 prospective). These numbers are higher than those often quoted from the now- outdated original study (Callum 1999). See Evidence for details. The patient???s functional capacity is: 4 mets. Based on AHA guideline, no further cardiac testing is indicated before surgery as this would not alter management. Risk of post-operative delirium: Based on patient???s age, cognitive function and comorbidities, the patient???s risk of postoperative delirium is: increased. Initiation of vulnerable brain protocol is recommended for this patient Risk of post-operative acute renal failure: The patient???s risk of developing postoperative ARF is: not elevated Prevention of intraoperative hypotension, discontinuation of CARMITA I, ARB, and diuretics before surgery and maintaining optimal postoperative volume status are advised for this patient. Risk of post-operative hypoventilation: Patient does not have history of CELESTE. The risk of postoperative hypoventilation is: not elevated Other pertinent medical conditions: Complete heart block s/p pacemaker: ordered EKG to ensure paced appropriately Chronic microcytic anemia: refuses transfusion, as above S/p gastric bypass: reports that he has been able to resolve his diabetes and hypertension as a result of surgery. Has Kidney stones, denies history of gout: ?on allopurinol Hx of left proximal femur fracture s/p ORIF DM2 w/peripheral neuropathy Hypertension Atrial flutter BPH: ?on tamsulosin, finasterid Patient does not recall any of his meds. He reports that his manages his meds, but refuses to allow me to call her. He mentions that in the past surgeries, he has not received his meds and did fine and at other surgeries, he received different meds. Did not order meds, as doesn't appear to be on BB nor statin. Asked for pharmacy med rec. DVT Prophylaxis: Per Surgery Code Status: Presumed FULL HPI Ed Jim Luna is a 61 y.o. old male who presents with left leg pain. Hospital Medicine has been consulted to perform a pre-operative risk assessment and to co-manage medical issues. Slipped and fell. Didn't lose consciousness. Didn't hit head. 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 Worried that he will lose everything if he is not back driving in a week. No trouble with surgery in the past. Had gastric bypass and had developed a bleeding ulcer. Had broken hip. Did well with this surgery. Went down due to covid shut downs and couldn't get therapy. No bleeding / clotting issues. No complications with anesthesia. Patient is scheduled for surgery on 10/01/[address] Peck at [facility]. Pre-operative Screening Questions: Tightening or pressure in chest with activity No Wakes at night with shortness of breath: No Swelling of feet or ankles at times: Yes, on diuretic Difficulty sleeping flat at night: Yes, due to back L3-L5, supposed to have surgery on this next Thursday Troubled by shortness of breath when ??? Walking on the level: ??? Climbing a flight of stairs No No Recent illness, fever, cough: No Chest ever sounds wheezy or whistling: No Chronic cough: No Patient or relatives have problem with bleeding or clotting: No Taken aspirin or NSAIDS in the last two weeks: Yes tylenol arthritis and ibuprofen daily Taken OAC/DOACs in the last two weeks: No Diagnosis of Anemia or taking iron medication: Yes Patient or relatives have complications with anesthesia: No Taking steroids or immunosuppressive medications: No Dementia diagnosis: No Past Medical/Surgical History Past Medical History: Diagnosis Date ??? 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 onset unknown?? 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 Past Surgical History: Procedure Laterality Date ??? ELBOW SURGERY Left 08/18/2017 Left ulnar nerve submusculasr transposition ??? PACEMAKER INSERTION Surgery Date Site/Laterality Comments CHONDRECTOMY OF SPINE 02/19/1989 N/A Discectomy?? BYPASS OF STOMACH 11/19/2014 N/A Gastric bypass?? OTHER SURGICAL HISTORY ? cystoscopy?? CYSTOSCOPY ? kidney stone?? LAPAROSCOPIC ASSISTED - GASTRIC BYPASS 11/21/2014 N/A Laparoscopic assisted - Gastric bypass?? UPPER GASTROINTESTINAL ENDOSCOPY 11/21/2014 N/A Upper gastrointestinal endoscopy?? OTHER CONVERTED SHX (SEE COMMENT) 01/19/2017 N/A >Implantation of dual-chamber permanent pacemaker. ?? ESOPHAGOGASTRODUODENOSCOPY 04/13/2018 N/A Procedure: ESOPHAGOGASTRODUODENOSCOPY; Surgeon: Rene Carlson M.D.; Location: [facility]?? Medical devices from this surgery are in the Medical Devices section.?? CARDIAC PACEMAKER PLACEMENT ? OPEN REDUCTION INTERNAL FIXATION FEMUR 08/13/2019 Hip/Left Procedure: OPEN REDUCTION INTERNAL FIXATION LEFT FEMUR; Surgeon: John Norman M.D.; Location: [facility] OR?? Medical devices from this surgery are in the Medical Devices section.?? Medications Prior to Admission Prior to Admission Medications Prescriptions Last Dose Informant Patient Reported? Taking? B-D 3CC LUER-ARIES SYR 25GX5/8 25G X 5/8 3 ML Yes No Sig: USE DIRECTED FOR CYANOCOBALAMIN INJECTION Sennosides (SENOKOT OR) Yes No acetaminophen (TYLENOL ARTHRITIS PAIN) 650 MG controlled release tablet Yes No Sig: Take 650 mg by mouth every 8 hours as needed for Pain. allopurinol (ZYLOPRIM) 300 MG tablet Yes No furosemide (LASIX) 40 MG tablet Yes No ibuprofen (MOTRIN) 200 MG tablet No No Sig: Take 2 Tabs by mouth every 6 hours as needed for Pain (Mild Pain). This may be safely mixed with the prescription pain medications (oxycodone, hydrocodone or tramadol.)?? This may also be safely mixed with acetaminophen. omeprazole (PRILOSEC) 20 MG capsule Yes No Sig: Take 20 mg by mouth daily. Facility-Administered Medications: None Medication Dispense History (from 2021 to 09/30/2021) Dispensed Days Supply Quantity Provider Pharmacy FUROSEMIDE 40 MG TABLET 09/20/2021 30 30 Each [facility]IN [facility] ALLOPURINOL 300MG TAB 09/19/2021 30 30 Each KEVIN [facility]IL[facility] FINASTERIDE 5MG TAB 09/19/2021 30 30 Each KEVIN KILGORE [facility] OMEPRAZOLE 20MG CAP 09/19/2021 30 30 Each KEVIN KILGORE [facility] TAMSULOSIN 0.4MG CAP 09/19/2021 30 60 Each KEVIN BULLOCK [facility] ALLOPURINOL 300MG TAB 08/20/2021 30 30 Each KEVIN KILGORE [facility] FUROSEMIDE 40 MG TABLET 08/20/2021 30 30 Each KEVIN KILGORE [facility] OMEPRAZOLE 20MG CAP 08/20/2021 30 30 Each CIARRA KILGOREFei CheJuan [facility] TAMSULOSIN 0.4MG CAP 08/20/2021 30 60 Each CARISSA VALENTIN,KEVIN Piper Juan [facility] FINASTERIDE 5MG TAB 08/14/2021 13 13 Each MAGUI,KEVIN Juan [facility] HYDROCODON-APAP 5-325 07/27/2021 2 8 Each CHUNG GARZA Juan [facility]... ALLOPURINOL 300 MG TABS 07/19/2021 30 30 Each MAGUI,KEVIN Feliz Juan [facility] FUROSEMIDE 40 MG TABLET 07/19/2021 30 30 Each MAGUI,KEVIN Piper Juan [facility] TAMSULOSIN 0.4MG CAP 07/19/2021 30 60 Each KEVIN BULLOCK Juan [facility]... TRAZODONE HCL 50 MG TABS 07/15/2021 30 60 Each MAGUI,KEVIN Piper Juan [facility] Allergies Allergies Allergen Reactions ??? Ciprofloxacin Unknown Swelling ??? Influenza Virus Vaccine Other, see comments Diarrhea Family History Medical History Relation Name Comments Heart failure Father ? Hypertension Father ? Diabetes Mother ? Heart attack Mother ? Kidney disease Mother ? Social History Social History Tobacco Use ??? Smoking status: Never Smoker ??? Smokeless tobacco: Never Used Substance Use Topics ??? Alcohol use: Not Currently ??? Drug use: Not Currently No smoking No alcohol No drugs Cardiac Review of Systems Does patient currently have any of the following conditions: No # Acute coronary syndrome # OH < one month ago # decompensated heart failure # Significant arrhythmias # Severe valvular disease If yes, patient should not proceed for surgery until cardiac condition is stabilized, unless this is an emergent surgery. Preoperative evaluation should end here. Cardiac risk factor assessment: Hx diabetes, resolved after bariatric surgery Previous echocardiogram if any: Echocardiogram Indications Unable to find past echo Pulmonary Assessment: ??? History of COPD? no ??? History of asthma? No ??? History of pulmonary hypertension: No Activities of Daily Living Assessment: Patient can do self care independently. Estimated Functional Capacity: 4 METS: can climb flight of stairs, walk up hill, or walk level ground at 4mph (15min mile).. Physical Examination: BP 132/81 Pulse 75 SpO2 100% General: NAD HEENT: Head atraumatic. EOMI, PERRLA Heart: RRR, nl S1, S2. No M/R. No LE edema, good distal pulses Lungs: CTAB, no crackles wheezes Abdomen: nl BS, soft, non-distended, non-tender Neuro: Alert, coherent. Able to move all extremities Labs and Imaging: Ordering Guidelines Lab Results: Lab Results Component Value Date/Time BUN 26 09/30/2021 07:02 PM CREATININE 0.78 09/30/2021 07:02 PM SODIUM 136 09/30/2021 07:02 PM K 4.0 09/30/2021 07:02 PM BICARB 24 09/30/2021 07:02 PM CHLORIDE 104 09/30/2021 07:02 PM GLUCOSE 152 (H) 09/30/2021 07:02 PM CA 8.4 09/30/2021 07:02 PM Lab Results Component Value Date/Time WBC 8.0 09/30/2021 07:02 PM RBC 2.68 (L) 09/30/2021 07:02 PM HGB 6.0 (LL) 09/30/2021 07:02 PM HCT 20.8 (L) 09/30/2021 07:02 PM MCV 77.6 (L) 09/30/2021 07:02 PM MCH 22.4 (L) 09/30/2021 07:02 PM MCHC 28.8 (L) 09/30/2021 07:02 PM PLTS 151 09/30/2021 07:02 PM RDW 17.5 (H) 09/30/2021 07:02 PM Lab Results Component Value Date/Time INR 1.1 09/30/2021 06:27 PM EKG: Ordered EKG to ensure paced appropriately CXR: not indicated XR Pelvis AP W AP/Lat Hip Lt Final Result IMPRESSION: Demineralization of the visualized bones. Degenerative changes lower lumbar spine and joints of the pelvis including the left hip joint. Intramedullary nail with proximal lag screw and distal locking screw across healed proximal left femoral fracture deformity. Hardware is well seated with good alignment. Pelvic phleboliths. Vascular calcifications. XR Knee Lt 2 Views Final Result IMPRESSION: Acute comminuted fracture of the distal metadiaphysis of the femur. Interval decrease indisplacement and angulation. Small knee joint effusion. Diffuse bony demineralization. Splint posteriorly. XR Femur Lt 2 Views Lower AP/Lat Final Result IMPRESSION: Comminuted fracture involving the distal left femoral metaphysis. Associated soft tissueswelling and deformity. Mild degenerative changes left knee joint. Demineralization of the visualized bones. Vascular calcifications. Splint has been applied posteriorly for stabilization. Thank you for allowing me to take care of Ed Jim Luna. Report completed by: at 9:30 PM on 09/30/2021. Coding Guidelines CC: consult --- End of Report --- INIST CLASS B Martha Gottlieb MD - 09/30/2021 6:15 PM CSTAssociated Order(s): ORTHOPEDIC CONSULT Orthopaedic Surgery Consultation/H&P DATE OF SERVICE: 09/30/2021 This is a consultation requested by ED for femur fracture. CHIEF COMPLAINT: Left thigh pain HISTORY OBTAINED FROM: Patient, chart review HISTORY: This is a 61 y.o. old male with PMH DM2 w peripheral neuropathy, HTN, A-flutter s/p pacemaker, microcytic anemia in the setting of prior gastric bypass surgery, BPH wo obstruction who presentsas a transfer from the [place] ED with left distal thigh pain after a fall today. Patient was walking back from his truck when he slipped on ice, landing directly onto his left knee. JUSTIN 0600 today. Patient was unable to bear weight after the injury. Denies numbness, paresthesias, head trauma, LOC, pain anywhere else in the body. Previously sustained a nondisplaced left intertrochanteric femur fracture on 08/12/2019 who underwent IMN L femur fracture by Dr. John Norman in [place], [place]. Location: Left distal thigh Time of Onset: today Severity: 8/10 Quality: sharp Radiation: none Exacerbating: movement, WB Alleviating: rest Associated symptoms: none Patient has been NPO since 1999 on 09/29/21. Patient lives with his and dog. Patient ambulates with a cane. 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 PAST MEDICAL HISTORY: As in HPI Past Medical History: Diagnosis Date Kidney stones PAST SURGICAL HISTORY: As INHPI Past Surgical History: Procedure Laterality Date ELBOW SURGERY Left 08/18/2017 Left ulnar nerve submusculasr transposition PACEMAKER INSERTION FAMILY HISTORY: Reviewed with patient and is non-contributory. 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 Taking? B-D 3CC LUER-ARIES SYR 25GX5/8 25G X 5/8 3 ML Yes No Sig: USE DIRECTED FOR CYANOCOBALAMIN INJECTION Sennosides (SENOKOT OR) Yes No acetaminophen (TYLENOL ARTHRITIS PAIN) 650 MG controlled release tablet Yes No Sig: Take 650 mg by mouth every 8 hours as needed for Pain. allopurinol (ZYLOPRIM) 300 MG tablet Yes No furosemide (LASIX) 40 MG tablet Yes No ibuprofen (MOTRIN) 200 MG tablet No No Sig: Take 2 Tabs by mouth every 6 hours as needed for Pain (Mild Pain). This may be safely mixed with the prescription pain medications (oxycodone, hydrocodone or tramadol.) This may also be safely mixed with acetaminophen. omeprazole (PRILOSEC) 20 MG capsule Yes No Sig: Take 20 mg by mouth daily. Facility-Administered Medications: None REVIEW OF SYSTEMS: An 11-point systems review was performed and negative except as noted in the HPI. PHYSICAL EXAMINATION: There were no vitals filed for this visit. Gen: Awake and Alert, pleasant, interactive, appears in pain. Psych: Articulates and Communicates with a normal affect HEENT: Normal and atraumatic Pulm: Non-labored breathing at rest. Saturating well on RA. CV: RRR Extremities: LLE: Present deformity, skin intact. TTP over thigh/knee. Non-tender to palpation over knee, leg, ankle/foot. No pain with ROM ankle. ROM hip/knee unable to be performed 2/2 pain + TA/Gsc/EHL/FHL. SILT DP/SP/sural/saph/tibial distributions. DP/PT palpable, toes warm/well-perfused. RLE: No deformity, skin intact. Non-tender to palpation over thigh, knee, leg, ankle/foot. No pain with ROM hip/knee/ankle. + TA/Gsc/EHL/FHL. SILT DP/SP/sural/saph/tibial distributions. DP/PT palpable, toes warm/well-perfused. LABS/IMAGING: No results for input(s): HGB, WBC, PLTS in the last 72 hours. No results for input(s): SODIUM, K, CHLORIDE, CO2, BUN, CREATININE, GLUCOSE, CA, MG, PHOS in the last 72 hours. No results for input(s): INR, PROTIME, PTT in the last 72 hours. Imaging: Review of x-rays shows left displaced comminuted distal femur fracture. PROCEDURES: None IMPRESSION AND PLAN: A 61 y.o. old male with PMHx DM2 w peripheral neuropathy, HTN, A-flutter s/p pacemaker, microcytic anemia in the setting of prior gastric bypass surgery and now with closed left distal femur fracture. Placed into KI for immobilization until the OR. Risks, benefits and alternativesof both operative and closed treatment were discussed. Questions answered. - Admit to Orthopaedics, medicine consulting - Plan for OR: 10/01/2021 IMN vs. ORIF Left distal femur fracture w Dr. Gottlieb -Consent: obtained -Pre-op labs: complete -Medicine clearance: pending - Anticoagulation: hold in anticipation of OR - Antibiotics/tetanus: preop abx ordered - Xrays/imaging: complete - Activity: bedrest for now - Weight Bearing: NWB LLE - Pain control: IV to PO ordered - Diet: Ok for regular diet, NPO midnight for OR 10/01 - Dispo: TBD - Follow-up: TBD Patient was discussed with Dr. Jennifer Barney, fellow. Orthopaedic staff for this patient is Dr. Chery Cervantes MD Orthopaedic Surgery, PGY-2 Pager: [phone] For any questions or concerns regarding this patient, please contact me directly at the pager listedabove. If there is no reply, if it is a weekend, or if it is after hours, then please page the orthopedic surgery service pager at [phone] Attestation: I saw and evaluated this patient and we have discussed the plan of care with the resident. I have personally reviewed the patient's imaging and laboratory data. I agree with the findings as detailed inthe resident's note. Martha Gottlieb MD Industrial Nurse [facility] Department of Orthopaedic Surgery [facility] INIST CLASS B documented in this encounter ED Notes Jonah Nova MD - 09/30/2021 6:14 PM CST [facility] Emergency Department Attending Supervision Note Pt Name: Ed Jim Luna : 1960 I performed the huynh elements of history and exam, and agree with resident's findings and plan of care. I have reviewed and agreed with the PMH, FH, SOC, ROS. Please see today's note by resident physician. Gen: No distress LLE: 2+ DP pulse. Pt can wiggle toes. SILT in foot. Assessment: Left distal femur fracture after mechanical fall and baseline anemia. Plan: X-rays Repeat hemoglobin, INR, type and screen Admit Author: Jonah Nova MD INIST CLASS B Francisca Harvey MD - 09/30/2021 5:45 PM CST [facility] Emergency Medicine Visit Note Chief Complaint: FRACTURE HPI Ed Jeremy is a 61 year old male with history of diet controlled TIIDM, peripheral neuropathy, chronic low back pain, hypertension, atrial flutter s/p pacemaker, chronic microcytic anemia (baseline hgb 6.5) s/p gastric bypass, and previous left proximal femur fracture s/p ORIF who presents with distal left femur fracture after a mechanical fall. Ed was on icy stairs outside his home this morning and started to slip, so he walked down the stairsand when he reached the bottom he stumbled and fell directly onto his left knee from a standing height. He did not hit his head or any other part of his body during the fall, did not have preceding ligh theadedness/dizziness or lose consciousness. He had immediate pain in his knee and was brought to the [place] ED for evaluation. There, was found to have a new acute fracture of the distal femur diametaphysis with marked comminution, 4cm impaction, mild medial angulation and moderate posterior angulation in the setting of osteopenia. CXR and ECG were normal/stable from baseline. He had basic labs including CBC showing baseline hemoglobin at 6.5, normal BMP aside from mildly elevated BUN at 29, and negative COVID PCR. Has some lower back pain at baseline that radiates to his hips, does not think his hips hurt worse than normal. Has chronic peripheral neuropathy so normally has numbness in his feet that is at baseline, no new numbness or tingling to leg. Has had a global headache since getting Dilaudid in the outside ED. Otherwise no concerns or complaints. In addition to the above, I have personally reviewed any medications, allergies, problem list, medical history, surgical history and social history in the health record as of this visit. Review of Systems A complete review of systems was performed and is otherwise negative. Triage Vitals [09/30/211814] Temp Temp src Pulse 76 Resp BP 131/84 SpO2 99 % Physical Exam General: alert, no apparent distress, sitting comfortably in bed HEENT: head atraumatic and normocephalic, hearing grossly intact, pupils small but round, equal, andreactive to light and accommodation bilaterally, EOM grossly intact, nares clear without erythema ordrainage, no oral ulcers, oropharynx without erythema or exudate, normal dentition, moist mucous membranes Neck: no stiffness and full ROM Pulm: CTAB from anterior, no wheezes, rhonchi, or rales. Normal effort. Cardio: RRR, normal S1 and S2, no murmurs, rubs, or gallops, normal cap refill and normal radial andDP pulses Abd: soft, non-tender, non-distended, normal bowel sounds in all four quadrants, no guarding or rebound tenderness MSK/Ext: left knee and distal thigh swollen and tender to light palpation, mild bruising to medial left knee, no open wounds or skin break, left leg slightly shorter than right, tenderness to direct palpation and pain to left hip with pressure on pelvis bilaterally Skin: stasis skin changes to bilateral distal legs, overall pale, skin otherwise warm and dry, no rashes, no cyanosis, or jaundice to visible skin Neuro: A&Ox3, answering questions appropriately, normal speech, CN II-XII grossly intact, normalmuscle tone, intact but decreased sensation to bilateral feet equally, able to wiggle toes bilaterally without pain Psych: normal affect, good eye contact MDM: Patient transferred here with known fracture to distal left femur. Has pain and tenderness to left hip on exam in setting of previous proximal left hip fracture with hardware, so will image the rest ofhis left femur and pelvis. Will also repeat left knee XR as we do not have the images available. Didnot suffer other trauma to limbs or head, CXR negative at outside facility, not having any pain other than in affected leg, no additional imaging needed. No history of syncope or preceding symptoms to this mechanical fall and ECG was read as similar to previous at outside facility, so will not pursue additional workup for other causes of fall. Does have baseline hemoglobin 6.5, will repeat here and obtain T&S. Blood transfusion per orthopedics vs medicine consult. Will consult orthopedics and obtain imaging as above as well as pre-op labs. Francisca Harvey MD ED Course as of 09/30/212102Sep 30, [id number] BP: 131/84 Initial vitals wnl. [KS] 1826 Gave a dose of fentanyl for pain control of leg fracture and headache. [KS] 1826 Spoke to orthopedics and placed consult. They would like to repeat pelvis, left hip, left femur, and left knee imaging as images from [place] of the left knee are not available. CBC and BMP availablevia Care Everywhere, will repeat hgb and obtain T&S, INR/PT, and PTT in preparation for surgery per ortho. [KS] 1949 Hemoglobin, Blood(!!) Hemoglobin low at 5.8-6, lower than outside hospital measurement of 6.5. [KS] 1950 Type and Screen A positive [KS] 1950 Basic Metabolic Panel(!) BMP wnl. [KS] 1950 INR/Protime Normal INR, PT, PTT [KS] 1951 BP: 132/81 Continues to have normal vitals. [KS] 1951 XR Femur Lt 2 Views Lower AP/Lat X-rays of left femur and knee reveal distal left femur fracture with associated soft tissue swelling, slight decrease in angulation and displacement from previous. [KS] 1953 XR Pelvis AP W AP/Lat Hip Lt XR of the pelvis and left hip without fracture or displacement of hardware. [KS] 2000 Signed out to orthopedics, who will admit him to an ortho bed with medicine consult for his anemia. [KS] 2101 Reevaluated patient, declined additional pain medications after left leg brace placed by orthopedics. He would like to eat prior to his NPO at midnight order, so will get him some food. [KS] ED Course User Index [KS] Francisca Harvey MD Clinical Impressions as of 09/30/212102 Closed fracture of distal end of left femur, unspecified fracture morphology, initial encounter ([facility]) INIST CLASS B Juan Miguel Rios MD - 09/30/2021 4:01 PM CST Referred from [facility] by MD for L femur fx. Background/plan: Slipped and fell this morning. L distal femur fx. CMS intact. No other hinjury. Noton anticoag. VSS Covid negative. Needs ortho Means of arrival: EMS Call back: none INIST CLASS B documented in this encounter Plan of Treatment Upcoming Encounters Date Type Specialty Care Team Description 08/04/2022 Appointment Orthopedics Martha Gottlieb MD [address], [place] [address] (Gavi presley) 10/08/2022 Appointment Orthopedics Martha Gottlieb MD [address], [place] [address] (Gavi presley) 05/27/2023 Appointment Chemo Therapy/Infusion Services Pending Results Name Type Priority Associated Diagnoses Date/Ti me Transfuse RBC Nursing Transfusion Routine 022 3:23 AM MACHINIST CLASS B Scheduled Referrals Name Type Priority Associated Diagnoses Order S chedule Orthopaedic/Sports Referral Routine Closed fracture of dis erna Ordered: 10/02/2021 Medicine Referral - end of left femur, Adult/Peds unspecified fracture morphology, initial encounter ([facility]) Physical Therapy Referral Routine Closed fracture of dista l Ordered: 10/03/2021 end of left femur, unspecified fracture morphology, initial encounter ([facility]) documented as of this encounter Procedures Procedure Name Priority Date/Time Associated Comments Diagnosis XR FEMUR LT 2 VIEWS Routine 10/02/2021 10:21 Resu lts for this AM MACHINIST CLASS B procedure are i n the results section. VITAMIN D 25-HYDROXY, Routine 10/02/2021 8:22 Res ults for this TOTAL AM MACHINIST CLASS B procedure are i n the results section. INTACT PTH Routine 10/02/2021 8:22 Results for this AM MACHINIST CLASS B procedure are i n the results section. COMP METABOLIC PANEL Routine 10/02/2021 8:22 Resu lts for this AM MACHINIST CLASS B procedure are i n the results section. TSH, SENSITIVE Routine 10/02/2021 8:22 Results fo r this AM MACHINIST CLASS B procedure are i n the results section. COMPLETE BLOOD COUNT-NO Routine 10/02/2021 8:22 R esults for this DIFF AM MACHINIST CLASS B procedure are i n the results section. GLUCOSE, WHOLE BLOOD POCT Routine 10/01/2021 3:00 Results for this PM MACHINIST CLASS B procedure are i n the results section. XR C-ARM 3.5-4 HOURS Routine 10/01/2021 2:11 Resu lts for this PM MACHINIST [facility] B procedure are i n the results section. HEMOGLOBIN, MEASURED POCT Routine 10/01/2021 10:52 Results for this AM MACHINIST CLASS B procedure are i n the results section. GLUCOSE, WHOLE BLOOD POCT Routine 10/01/2021 10:48 Results for this AM MACHINIST CLASS B procedure are i n the results section. INSERTION INTRAMEDULLARY 10/01/2021 9:59 Closed fractu re of NAIL FEMUR AM MACHINIST CLASS B distal end of left femur, unspecified fracture morphology, initial encounter ([facility]C) OPEN REDUCTION INTERNAL 10/01/2021 9:59 Closed fractur e of FIXATION DISTAL FEMUR AM MACHINIST CLASS B distal end of left FRACTURE femur, unspecified fracture morphology, initial encounter ([facility]C) GLUCOSE, WHOLE BLOOD POCT Routine 10/01/2021 9:16 Results for this AM MACHINIST CLASS B procedure are i n the results section. ECG 12-LEAD ROUTINE(LAB Routine 10/01/2021 6:20 R esults for this PERFORM) AM MACHINIST CLASS B procedure are i n the results section. 11446 ELECTROCARDIOGRAM STAT 10/01/2021 6:14 R esults for this TRACING AM MACHINIST CLASS B procedure are i n the results section. IV INSERTION(LAB TO STAT 10/01/2021 2:34 Resul ts for this PERFORM) AM MACHINIST CLASS B procedure are i n the results section. PREP RBC LR Routine 09/30/2021 11:01 Results for this PM MACHINIST [facility] B procedure are i n the results section. XR PELVIS AP W AP/LAT HIP STAT 09/30/2021 7:32 Results for this LT PM MACHINIST CLASS B procedure are i n the results section. XR FEMUR LT 2 VIEWS LOWER STAT 09/30/2021 7:32 Results for this AP/LAT PM MACHINIST CLASS B procedure are i n the results section. XR KNEE LT 2 VIEWS STAT 09/30/2021 7:32 Result s for this PM MACHINIST CLASS B procedure are i n the results section. CBC AND DIFFERENTIAL Routine 09/30/2021 7:02 Resu lts for this PANEL PM MACHINIST CLASS B procedure are i n the results section. BT SECOND DRAW Routine 09/30/2021 7:02 Results fo r this PM MACHINIST [facility] B procedure are i n the results section. COMPLETE BLOOD Routine 09/30/2021 7:02 Results fo r this COUNT-W/DIFF PM MACHINIST CLASS B procedure are i n the results section. BASIC METABOLIC PANEL Routine 09/30/2021 7:02 Res ults for this PM MACHINIST CLASS B procedure are i n the results section. DIFFERENTIAL Routine 09/30/2021 7:02 Results for this PM MACHINIST [facility] B procedure are i n the results section. FERRITIN Add-On 09/30/2021 7:02 Results for this PM MACHINIST [facility] B procedure are i n the results section. IRON PROFILE Add-On 09/30/2021 7:02 Results for this (IRON,TIBC,%SAT.(CALC)) PM MACHINIST CLASS B proc edure are in the results section. TYPE AND SCREEN STAT 09/30/2021 6:27 Results f or this PM MACHINIST [facility] B procedure are i n the results section. ANTIBODY SCREEN STAT 09/30/2021 6:27 Results f or this PM [facility]IN[facility] B procedure are i n the results section. BLOOD TYPE STAT 09/30/2021 6:27 Results for this PM [facility]ACHINIST [facility] B procedure are i n the results section. PATH REVIEW (LAB USE Routine 09/30/2021 6:27 Resu lts for this ONLY) PM MACHIN[facility] B procedure are i n the results section. APTT (ACTIVATED PARTIAL Routine 09/30/2021 6:27 R esults for this THROMBOPLASTIN TIME PM MACHINIST CLASS B procedur e are in the results section. HEMOGLOBIN, BLOOD STAT 09/30/2021 6:27 Results for this PM MACHINIST CLASS B procedure are i n the results section. INR/PROTIME Routine 09/30/2021 6:27 Results for this PM MACHINIST CLASS B procedure are i n the results section. documented in this encounter Results XR Femur Lt 2 Views (10/02/2021 10:21 AM MACHINIST CLASS B) Anatomical Region Laterality Modality Lower Extremity, Leg, Thigh Computed Rad iography Specimen (Source) Anatomical Collection Method Collection Time Re ceived Time Location / / Volume Laterality 10/02/2021 10:21 AM MACHINIST CLASS B Narrative 10/02/2021 10:37 AM MACHINIST CLASS B EXAM: XR FEMUR LT 2 VIEWS LOCATION: [facility] DATE/TIME: 10/02/2021 10:21 AM INDICATION: S/p orif l distal femur frac ture COMPARISON: 09/30/2021. Intraoperative s pot films 10/01/2021. IMPRESSION: Interim placement of a dista l femoral intramedullary nail with distal fixation. Lateral plate and screw fixation along the lateral femoral cortex. Approximately 7 mm separation of the distal aspect of the plate in relation to the lateral, distal femoral cortex. This is unchanged from the intraoperative films. Screw at the level of the distal third of the diaphysis penetrates only 3 mm into the femoral cortex. This is also unchan ged. The remaining screws penetrate well into the left femur. Anatomic alignment of the major fracture fragments. Small fracture fragments at the medial aspect of the distal femoral diaphysis. Stable pr oximal intramedullary ovidio with a femoral neck lag screw. Basilar calcifications within the visual ized pelvis and thigh. Osteopenia of the visualized bones. Procedure Note Marlon Monreal MD - 10/02/2021 EXAM: XR FEMUR LT 2 VIEWS LOCATION: [facility] DATE/TIME: 10/02/2021 10:21 AM INDICATION: S/p orif l distal femur frac ture COMPARISON: 09/30/2021. Intraoperative s pot films 10/01/2021. IMPRESSION: Interim placement of a dista l femoral intramedullary nail with distal fixation. Lateral plate and screw fixation along the lateral femoral cortex. Approximately 7 mm separation of the distal aspect of the plate in relation to the lateral, distal femoral cortex. This is unchanged from the intraoperative films. Screw at the level of the distal third of the diaphysis penetrates only 3 mm into the femoral cortex. This is also unchanged. The remaining screws penetrat e well into the left femur. Anatomic alignment of the major fracture fragments. Small fracture fragments at the medial aspect of the distal femoral diaphysis. Stable proximal intramedullary ovidio with a femor al neck lag screw. Basilar calcifications within the visual ized pelvis and thigh. Osteopenia of the visualized bones. Suzie Daigle PA-C RAD GD Vitamin D 25 HYDROXY, TOTAL (10/02/2021 8:22 AM MACHINIST CLASS B) Patholo gist Method Time Signature Vitamin D, 58 30 - 80 10/02/2021 [facility] 25-OH, Total ng/mL 12:54 PM [facility] Specimen Anatomical Collection Method / Collection Time Recei shahid Time (Source) Location / Volume Laterality Blood Venipuncture 10/02/2021 8:22 10/02/2021 8 :32 Butterfly / Unknown AM MACHINIST CLASS B AM MACHINIST CLASS B Keyla Gilbert APRN, CNP LAB_1 Performing Organization Address City/State/ZIP Code Phon e Number [facility] [address] [address] TSH (10/02/2021 8:22 AM MACHINIST CLASS B) athologist Signature TSH, Sensitive 0.31 0.30 - 10/02/2021 [facility] 4.50 9:37 AM [facility] uIU/mL Specimen Anatomical Collection Method / Collection Time Recei shahid Time (Source) Location / Volume Laterality Blood Venipuncture 10/02/2021 8:22 10/02/2021 8 :33 Butterfly / Unknown AM MACHINIST CLASS B AM MACHINIST CLASS B Keyla Gilbert APRN, CNP LAB_1 Performing Organization Address City/[facility]/ZIP Code Phon e Number [address] [address] (ABNORMAL) Comp Metabolic Panel (10/02/2021 8:22 AM MACHINIST CLASS B) Analysis Performed At Patho logist Time Signature Sodium 137 136 - 145 10/02/2021 [facility] mmol/L 9:19 AM [facility] Potassium 4.2 3.5 - 5.1 10/02/2021 [facility] mmol/L 9:19 AM [facility] Chloride 108 98 - 109 10/02/2021 [facility] mmol/L 9:19 AM [facility] CO2 23 20 - 29 10/02/2021 [facility] mmol/L 9:19 AM [facility] Anion Gap 6 (L) 7 - 16 10/02/2021 [facility] mmol/L 9:19 AM [facility] Calcium 8.4 8.4 - 10.4 10/02/2021 [facility] mg/dL 9:19 AM [facility] BUN 30 (H) 7 - 26 10/02/2021 [facility] mg/dL 9:19 AM [facility] Creatinine 0.96 0.73 - 10/02/2021 [facility] 1.18 mg/dL 9:19 AM [facility] GFR, Estimated >60 >60 10/02/2021 [facility] mL/min/1.7 9:19 AM [facility] 3m2 Alkaline 42 40 - 150 10/02/2021 [facility] Phosphatase U/L 9:19 AM [facility] AST (SGOT) 12 10 - 40 10/02/2021 [facility] U/L 9:19 AM [facility] ALT (SGPT) 13 0 - 55 U/L 10/02/2021 [facility] 9:19 AM [facility] Bilirubin, Total 0.2 0.2 - 1.2 10/02/2021 [facility] mg/dL 9:19 AM [facility] Protein, Total 5.5 (L) 6.4 - 8.3 10/02/2021 [facility] g/dL 9:19 AM [facility] Albumin 3.1 (L) 3.5 - 5.0 10/02/2021 [facility] g/dL 9:19 AM [facility] Glucose 116 (H) 70 - 100 10/02/2021 [facility] mg/dL 9:19 AM [facility] Comment: The given reference range is fo r the fasting state. Non-fasting reference range for glucose is 70 - 180 mg/dL. Specimen Anatomical Collection Method / Collection Time Recei shahid Time (Source) Location / Volume Laterality Blood Venipuncture 10/02/2021 8:22 10/02/2021 8 :33 Butterfly / Unknown AM MACHINIST CLASS B AM MACHINIST CLASS B Keyla Gilbert APRN, KORIN LAB_1 Performing Organization Address City/State/ZIP Code Phon e Number [address] [place] [address] (ABNORMAL) Complete Blood Count-No Diff (10/02/2021 8:22 AM MACHINIST CLASS B) Analysis Performed At Patho logist Time Signature WBC 7.5 3.5 - 10.5 10/02/2021 [facility] x10(9)/L 9:19 AM [facility] RBC 2.41 (L) 4.32 - 10/02/2021 [facility] 5.72 9:19 AM [facility] x10(12)/L Hemoglobin 5.6 (LL) 13.5 - 10/02/2021 [facility] 17.5 g/dL 9:19 AM [facility] HCT 19.3 (L) 38.8 - 10/02/2021 [facility] 50.0 % 9:19 AM [facility] MCV 80.1 80.0 - 10/02/2021 [facility] 100.0 fL 9:19 AM [facility] MCH 23.2 (L) 27.6 - 10/02/2021 [facility] 33.3 pg 9:19 AM [facility] MCHC 29.0 (L) 31.5 - 10/02/2021 [facility] 35.2 g/dL 9:19 AM [facility] RDW 17.2 (H) 11.9 - 10/02/2021 [facility] 15.5 % 9:19 AM [facility] Platelets 130 (L) 150 - 450 10/02/2021 [facility] x10(9)/L 9:19 AM [facility] Automated NRBC 0 <=0 /100 10/02/2021 [facility] WBC 9:19 AM [facility] Specimen Anatomical Collection Method / Collection Time Recei shahid Time (Source) Location / Volume Laterality Blood Venipuncture 10/02/2021 8:22 10/02/2021 8 :33 Butterfly / Unknown AM MACHINIST CLASS B AM MACHINIST CLASS B Keyla Gilbert APRN, PLUG STITCHER LAB_1 Performing Organization Address City/State/ZIP Code Phon e Number [address] [place] [address] Intact PTH (10/02/2021 8:22 AM MACHINIST CLASS B) P athologist Signature Intact PTH 96 10 - 100 10/02/2021 [facility] pg/mL 9:37 AM [facility] Specimen Anatomical Collection Method / Collection Time Recei shahid Time (Source) Location / Volume Laterality Blood Venipuncture 10/02/2021 8:22 10/02/2021 8 :33 Butterfly / Unknown AM MACHINIST CLASS B AM MACHINIST CLASS B Keyla Gilbert APRN, CNP LAB_1 Performing Organization Address [facility]/ZIP [facility] Phon e Number [address] [place] [address] Glucose, Whole Blood POCT (10/01/2021 3:00 PM MACHINIST CLASS B) Patholo gist Method Time Signature Glucose, Whole 166 70 - 180 10/01/2021 [facility] Blood mg/dL 3:01 PM [facility] POCT Comment 1 MD Notified 10/01/2021 [facility] 3:01 PM [facility] Performing RCLAB PACU 10/01/2021 [facility] Location 3:01 PM [facility] Specimen Anatomical Collection Method Collection Time Receive d Time (Source) Location / / Volume Laterality Blood 10/01/2021 3:00 PM 3:01 MACHINIST CLASS B PM MACHINIST CLASS B Martha Gottlieb MD LAB_1 Performing Organization Address [facility] e Number [address] [place] [address] XR C-Arm 3.5-4 Hours (10/01/2021 2:11 PM MACHINIST CLASS B) Anatomical Region Laterality Modality X-Ray Angiography Specimen (Source) Anatomical Location Collection Method / Collectio n Time Received Time / Laterality Volume Narrative 10/01/2021 2:12 PM MACHINIST CLASS B Fluoroscopy provided by a radiology resident. Exact fluoroscopy time is documented in end of exam information in EPIC Martha Gottlieb MD RAD GD (ABNORMAL) Hemoglobin, Measured POCT (10/01/2021 10:52 AM MACHINIST CLASS B) Analysis Performed At Patho logist Time Signature Hemoglobin 8.5 (L) 13.5 - 10/03/2021 [facility] 17.5 g/dL 7:17 AM [facility] Performing RCLAB OR 10/03/2021 [facility] Location 7:17 AM [facility] Specimen Anatomical Collection Method Collection Time Receive d Time (Source) Location / / Volume Laterality Blood 10/01/2021 10:52 10/03/2021 7:17 AM MACHINIST CLASS B AM MACHINIST CLASS B Martha Gottlieb MD LAB_1 Performing Organization Address [facility]/ZIP Code Phon e Number [address] [address] Glucose, Whole Blood POCT (10/01/2021 10:48 AM MACHINIST CLASS B) [facility] Method Time Signature Glucose, Whole 103 70 - 180 10/01/2021 [facility] Blood mg/dL 10:50 AM [facility] POCT Comment 1 No Action 10/01/2021 [facility] Required 10:50 AM [facility] Performing RCLAB OR 10/01/2021 [facility] Location 10:50 AM [facility] Specimen Anatomical Collection Method Collection Time Receive d Time (Source) Location / / Volume Laterality Blood 10/01/2021 10:48 10/01/2021 AM MACHINIST CLASS B 10:50 AM MACHINIST CLASS B Martha Gottlieb MD LAB_1 Performing Organization Address [facility]/ZIP Code Phon e Number [address] [address] Glucose, Whole Blood POCT (10/01/2021 9:16 AM MACHINIST CLASS B) [facility] Method Time Signature Glucose, Whole 106 70 - 180 10/01/2021 [facility] Blood mg/dL 9:17 AM [facility] Performing RCLAB SDS 10/01/2021 [facility] Location 9:17 AM [facility] Specimen Anatomical Collection Method Collection Time Receive d Time (Source) Location / / Volume Laterality Blood 10/01/2021 9:16 AM 9:17 MACHINIST CLASS B AM MACHINIST CLASS B Martha Gottlieb MD LAB_1 Performing Organization Address City/[facility]/ZIP Code Phon e Number [address] [address] Transfuse RBC (10/01/2021 8:38 AM MACHINIST CLASS B) Josep Peck MD ET NURSING BLOOD ADMIN ECG 12-Lead Routine (Lab perform) (10/01/2021 6:20 AM MACHINIST CLASS B) athologist Signature EKG Completed 10/01/2021 [facility] 11:02 AM [facility] Specimen Anatomical Collection Method Collection Time Receive d Time (Source) Location / / Volume Laterality Other Specimen Non-blood 10/01/2021 6:20 AM 022 9:57 Type Collection / MACHINIST CLASS B AM MACHINIST CLASS B Unknown Óscar Simms DO LAB_1 Performing Organization Address [facility] Phon e Number [address] [address] Ecg 12-Lead Routine (MUSE) (10/01/2021 6:14 AM MACHINIST CLASS B) P athologist Signature Ventricular Rate 64 BPM [facility] Atrial Rate 64 BPM [facility] P-R Interval 448 ms [facility] QRS Duration 176 ms [facility]USE [facility] QT 466 ms [facility] QTc 480 ms [facility] R [place] -89 degrees MUSE [facility] T [place] 68 degrees MUSE [facility] Specimen (Source) Anatomical Collection Method Collection Time Re ceived Time Location / / Volume Laterality 10/01/2021 6:14 AM MACHINIST CLASS B Narrative [facility]USE [facility] - 10/01/2021 2:40 PM MACHINIST CLASS B Atrial-sensed ventricular-paced rhythm with prolonged AV conduction Abnormal ECG No previous ECGs available Confirmed by Pancho Dangelo ([id number]) on 10/01/19 2:40:30 PM Procedure Note Pancho Dangelo MD - 10/01/2021 Atrial-sensed ventricular-paced rhythm w ith prolonged AV conduction Abnormal ECG No previous ECGs available Confirmed by Pancho Dangelo ([id number]) on 10/01/19 2:40:30 PM Óscar Simms DO EKG Performing Organization Address [facility] Phon e Number [facility] [address] [place] [address] IV Insertion, LST Perform (10/01/2021 2:34 AM MACHINIST CLASS B) P athologist Signature IV INSERTION, Done 10/01/2021 [facility] L[facility] PERFORM 5:03 AM [facility] (LAB) Specimen Anatomical Collection Method / Collection Time Recei shahid Time (Source) Location / Volume Laterality Other Specimen Venipuncture 10/01/2021 2:34 10/01/2021 3:20 Type Butterfly / Unknown AM MACHINIST CLASS B AM MACHINIST CLASS B Josep Peck MD LAB_1 Performing Organization Address [facility]/ZIP Code Phon e Number [address] [address] Prep RBC: , 2 Units (09/30/2021 11:01 PM MACHINIST CLASS B) Component Value Ref Test Analysis Performed At [facility] Range Method Time Signature BLOOD PRODUCT [id number] [facility] CODE BLOOD BANK BLOOD UNIT NUMBER [id number] [facility] B[facility] CROSSMATCH Compatible [facility] INTERPRETATION BLOOD BANK BLOOD DISPENSE Transfused [facility] STATUS BLOOD B[facility] Unit Expiration [facility] Date BLOOD BANK UNIT BT BARCODE 6200 [facility] PRODUCT VOL ML 400 [facility] CODING SYSTEM ISBT [facility] PRODUCT RBC LR [facility] BLOOD PRODUCT [id number] [facility] CODE BLOOD BANK BLOOD UNIT NUMBER [id number] [facility] CROSSMATCH Compatible [facility] INTERPRETATION BLOOD BANK BLOOD DISPENSE Transfused [facility] STATUS BLOOD [facility] Unit Expiration [facility] Date BLOOD BANK UNIT BT BARCODE 6200 [facility] PRODUCT VOL ML 400 [facility] CODING SYSTEM ISBT [facility] PRODUCT RBC LR [facility] Specimen (Source) Anatomical Collection Method Collection Time Re ceived Time Location / / Volume Laterality Blood 09/30/2021 11:01 PM MACHINIST CLASS B Josep Peck MD LAB_BLOOD PRODUCTS Performing Organization Address City/State/[facility] Code Phon e Number [facility] [address] [place] [address] XR Femur Lt 2 Views Lower AP/Lat (09/30/2021 7:32 PM MACHINIST CLASS B) Anatomical Region Laterality Modality Lower Extremity, Leg, Thigh Computed Rad iography Specimen (Source) Anatomical Collection Method Collection Time Re ceived Time Location / / Volume Laterality 09/30/2021 7:32 PM MACHINIST CLASS B Narrative 09/30/2021 7:41 PM MACHINIST CLASS B EXAM: XR FEMUR LT 2 VIEWS LOWER AP/LAT LOCATION: [facility] DATE/TIME: 09/30/2021 7:32 PM [...] FEMUR LT 2 VIEWS LOWER AP/LAT LOCATION: [facility] DATE/TIME: 09/30/2021 7:32 PM [...] Knee Lt 2 Views (09/30/2021 7:32 PM MACHINIST CLASS B) Anatomical Region Laterality Modality Lower Extremity, Knee Computed Radiograp hy Specimen (Source) Anatomical Collection Method Collection Time Re ceived Time Location / / Volume Laterality 09/30/2021 7:32 PM MACHINIST CLASS B Narrative 09/30/2021 7:38 PM MACHINIST CLASS B EXAM: XR KNEE LT 2 VIEWS LOCATION: [...] W AP/Lat Hip Lt (09/30/2021 7:32 PM MACHINIST CLASS B) Anatomical Region Laterality Modality Pelvis, Hip Computed Radiography Specimen (Source) Anatomical Collection Method Collection Time Re ceived Time Location / / Volume Laterality 09/30/2021 7:32 PM MACHINIST CLASS B Narrative 09/30/2021 7:41 PM MACHINIST CLASS B EXAM: XR PELVIS AP W AP/LAT HIP [...] alignment. Pelvic phleboliths. Vascular calcifications. Procedure Note Sharron Litzy PadillaJACQUELIN - 09/30/2021Formattin g of this note might be different from the original. EXAM: XR PELVIS AP W AP/LAT HIP LT LOCATION: [facility] DATE/TIME: 09/30/2021 7:32 PM INDICATION: [...] Vascular calcifications. Jonah Nova MD RAD GD (ABNORMAL) Ferritin (09/30/2021 7:02 PM MACHINIST CLASS B) athologist Signature Ferritin 13 (L) 22 - 275 09/30/2021 [facility] ng/mL 10:48 PM [facility] Specimen Anatomical Collection Method / Collection Time Recei shahid Time (Source) Location / Volume Laterality Blood Venipuncture / 09/30/2021 7:02 09/30/2021 7:07 Unknown PM MACHINIST CLASS B PM MACHINIST CLASS B Ted Burdick MD LAB_1 Performing Organization Address City/State/ZIP Code Phon e Number [address] [address] (ABNORMAL) Iron Profile (Iron,TIBC,%Sat.(Calc)) (09/30/2021 7:02 PM MACHINIST CLASS B) [facility] Method Time Signature Iron 14 (L) 65 - 175 09/30/2021 [facility] mcg/dL 10:41 PM [facility]OSPITAL MACHINIST CLASS B Transferrin 324 174 - 364 09/30/2021 [facility] mg/dL 10:41 PM [facility] MACHINIST CLASS B TIBC, Calculated 405 240 - 450 09/30/2021 [facility] mcg/dL 10:41 PM [facility]OS[facility]ITAL MACHINIST CLASS B % Saturation, 3 (L) 10 - 50 % 09/30/2021 [facility] Calculated 10:41 PM [facility]OSPITAL MACHINIST CLASS B TIBC Low iron, 09/30/2021 [facility] Interpretation normal TIBC, 10:41 PM HOSPITAL possible MACHINIST CLASS B iron deficiency. Specimen Anatomical Collection Method / Collection Time Recei shahid Time (Source) Location / Volume Laterality Blood Venipuncture / 09/30/2021 7:02 09/30/2021 7:07 Unknown PM MACHINIST CLASS B PM MACHINIST CLASS B Ted Burdick MD LAB_1 Performing Organization Address [facility] Code Phon e Number [address] [address] (ABNORMAL) Differential (09/30/2021 7:02 PM MACHINIST CLASS B) [facility] Method Time Signature Polychromasia Slight (A) None Seen 09/30/2021 [facility] 7:42 PM [facility] RBC Morphology Reviewed 09/30/2021 [facility] 7:42 PM [facility] Platelet Estimate Adequate Adequate 09/30/2021 [facility] 7:42 PM [facility] Neutrophil 7.1 (H) 1.7 - 7.0 09/30/2021 [facility] Absolute 10(9)/L 7:42 PM [facility] Lymphocyte 0.5 (L) 1.0 - 4.8 09/30/2021 [facility] Absolute 10(9)/L 7:42 PM [facility] Monocytes 0.3 0.2 - 0.9 09/30/2021 [facility] Absolute 10(9)/L 7:42 PM [facility] Eosinophil 0.0 0.0 - 0.5 09/30/2021 [facility] Absolute 10(9)/L 7:42 PM [facility] Basophil Absolute 0.1 0.0 - 0.3 09/30/2021 [facility] 10(9)/L 7:42 PM [facility] Specimen Anatomical Collection Method / Collection Time Recei shahid Time (Source) Location / Volume Laterality Blood Venipuncture / 09/30/2021 7:02 09/30/2021 7:07 Unknown PM MACHINIST CLASS B PM MACHINIST CLASS B Jonah Nova MD LAB_1 Performing Organization Address [facility]/ZIP Code Phon e Number [address] [address] Blood Type second draw (09/30/2021 7:02 PM MACHINIST CLASS B) P athologist Signature ABO A 09/30/2021 [facility] 7:42 PM MACHINIST CLASS B BANK RH Positive 09/30/2021 [facility] 7:42 PM MACHINIST CLASS B BANK Specimen Anatomical Collection Method / Collection Time Recei shahid Time (Source) Location / Volume Laterality Blood Venipuncture / 09/30/2021 7:02 09/30/2021 7:07 Unknown PM MACHINIST CLASS B PM MACHINIST CLASS B Eugenia Gupta MD LAB_1 Performing Organization Address City/State/ZIP Code Phon e Number [facility] [address] [place] [address] (ABNORMAL) Complete Blood Count-W/Diff (09/30/2021 7:02 PM MACHINIST CLASS B) Analysis Performed At Patho logist Time Signature WBC 8.0 3.5 - 10.5 09/30/2021 [facility] x10(9)/L 7:42 PM [facility] RBC 2.68 (L) 4.32 - 09/30/2021 [facility] 5.72 7:42 PM [facility] x10(12)/L Hemoglobin 6.0 (LL) 13.5 - 09/30/2021 [facility] 17.5 g/dL 7:42 PM [facility] HCT 20.8 (L) 38.8 - 09/30/2021 [facility] 50.0 % 7:42 PM [facility] MCV 77.6 (L) 80.0 - 09/30/2021 [facility] 100.0 fL 7:42 PM [facility] MCH 22.4 (L) 27.6 - 09/30/2021 [facility] 33.3 pg 7:42 PM [facility] MCHC 28.8 (L) 31.5 - 09/30/2021 [facility] 35.2 g/dL 7:42 PM [facility] RDW 17.5 (H) 11.9 - 09/30/2021 [facility] 15.5 % 7:42 PM [facility] Platelets 151 150 - 450 09/30/2021 [facility] x10(9)/L 7:42 PM [facility] Automated NRBC 0 <=0 /100 09/30/2021 [facility] WBC 7:42 PM [facility] Specimen Anatomical Collection Method / Collection Time Recei shahid Time (Source) Location / Volume Laterality Blood Venipuncture / 09/30/2021 7:02 09/30/2021 7:07 Unknown PM MACHINIST CLASS B PM MACHINIST CLASS B Jonah Nova MD LAB_1 Performing Organization Address City/[facility]/ZIP Code Phon e Number [address] [address] (ABNORMAL) Basic Metabolic Panel (09/30/2021 7:02 PM MACHINIST CLASS B) P athologist Signature Sodium 136 136 - 145 09/30/2021 [facility] mmol/L 7:46 PM [facility] Potassium 4.0 3.5 - 5.1 09/30/2021 [facility] mmol/L 7:46 PM [facility] Chloride 104 98 - 109 09/30/2021 [facility] mmol/L 7:46 PM [facility] CO2 24 20 - 29 09/30/2021 [facility] mmol/L 7:46 PM [facility] Anion Gap 8 7 - 16 09/30/2021 [facility] mmol/L 7:46 PM [facility] Calcium 8.4 8.4 - 10.4 09/30/2021 [facility] mg/dL 7:46 PM [facility] BUN 26 7 - 26 09/30/2021 [facility] mg/dL 7:46 PM [facility] Creatinine 0.78 0.73 - 09/30/2021 [facility] 1.18 mg/dL 7:46 PM [facility] GFR, Estimated >60 >60 09/30/2021 [facility] mL/min/1.7 7:46 PM [facility] 3m2 Glucose 152 (H) 70 - 100 09/30/2021 [facility] mg/dL 7:46 PM [facility] Comment: The given reference range is fo r the fasting state. Non-fasting reference range for glucose is 70 - 180 mg/dL. Specimen Anatomical Collection Method / Collection Time Recei shahid Time (Source) Location / Volume Laterality Blood Venipuncture / 09/30/2021 7:02 09/30/2021 7:07 Unknown PM MACHINIST CLASS B PM MACHINIST CLASS B Jonah Nova MD LAB_1 Performing Organization Address [facility] Phon e Number [address] [address] Blood Smear Review (Lab Use Only) (09/30/2021 6:27 PM MACHINIST CLASS B) Patholo gist Method Time Signature Path Review Special heme 10/01/2021 [facility] tech 11:24 AM MACHINIST CLASS B HOSPITAL performed slide review Path Review Hgb low 10/01/2021 [facility] Reason 11:24 AM [facility] Specimen Anatomical Collection Method / Collection Time Recei shahid Time (Source) Location / Volume Laterality Blood Venipuncture / 09/30/2021 6:27 09/30/2021 6:47 Unknown PM MACHINIST CLASS B PM MACHINIST CLASS B Jonah Nova MD LAB_1 Performing Organization Address [facility] Phon e Number [address] [address] (ABNORMAL) Hemoglobin, Blood (09/30/2021 6:27 PM MACHINIST CLASS B) athologist Signature Hemoglobin 5.8 (LL) 13.5 - 17.5 09/30/2021 [facility] g/dL 7:12 PM [facility] Specimen Anatomical Collection Method / Collection Time Recei shahid Time (Source) Location / Volume Laterality Blood Venipuncture / 09/30/2021 6:27 09/30/2021 6:47 Unknown PM MACHINIST CLASS B PM MACHINIST CLASS B Jonah Nova MD LAB_1 Performing Organization Address [facility] Phon e Number [address] [address] INR/Protime (09/30/2021 6:27 PM MACHINIST CLASS B) athologist Signature Protime 13.6 11.8 - 14.6 09/30/2021 [facility] Seconds 7:03 PM [facility] INR 1.1 0.9 - 1.1 09/30/2021 [facility] 7:03 PM [facility] Specimen Anatomical Collection Method / Collection Time Recei shahid Time (Source) Location / Volume Laterality Blood Venipuncture / 09/30/2021 6:27 09/30/2021 6:47 Unknown PM MACHINIST CLASS B PM MACHINIST CLASS B [facility] - 09/30/2021 7:03 PM CS T Therapeutic range determined by protocol established by anticoagulation provider. Jonah Nova MD LAB_1 Performing Organization Address [facility] Phon e Number [address] [address] APTT (Activated Partial Thromboplastin Time) (09/30/2021 6:27 PM MACHINIST CLASS B) athologist Signature APTT 31.7 22.5 - 36.5 09/30/2021 [facility] Seconds 7:03 PM MACHINIST CLASS B [facility]OSPITAL Specimen Anatomical Collection Method / Collection Time Recei shahid Time (Source) Location / Volume Laterality Blood Venipuncture / 09/30/2021 6:27 09/30/2021 6:47 Unknown PM MACHINIST CLASS B PM MACHINIST CLASS B Jonah Nova MD LAB_1 Performing Organization Address [facility] Phon e Number [address] [address] Antibody Screen (09/30/2021 6:27 PM MACHINIST CLASS B) [facility] Method Time Signature Antibody Screen Negative 09/30/2021 [facility] Interpretation 7:35 PM MACHINIST CLASS B BANK Specimen Anatomical Collection Method / Collection Time Recei shahid Time (Source) Location / Volume Laterality Blood Venipuncture / 09/30/2021 6:27 09/30/2021 6:46 Unknown PM MACHINIST CLASS B PM MACHINIST CLASS B Jonah Nova MD LAB_1 Performing Organization Address [facility] Phon e Number [facility] [address] [place] [id number] Blood Type (09/30/2021 6:27 PM MACHINIST CLASS B) P athologist Signature ABO A 09/30/2021 [facility] 7:23 PM MACHINIST CLASS B BANK RH Positive 09/30/2021 [facility] 7:23 PM MACHINIST CLASS B BANK Specimen Anatomical Collection Method / Collection Time Recei shahid Time (Source) Location / Volume Laterality Blood Venipuncture / 09/30/2021 6:27 09/30/2021 6:46 Unknown PM MACHINIST CLASS B PM MACHINIST CLASS B Jonah Nova MD LAB_1 Performing Organization Address [facility] Phon e Number [facility] [address] [place] [address] documented in this encounter Visit Diagnoses Diagnosis Closed fracture of left distal femur (HR C) - Primary Closed fracture of unspecified part of l ower end of femur Closed fracture of distal end of left fe mur, unspecified fracture morphology, initial encounter (HRC) Pain Generalized pain Diabetes mellitus type II (HRC) Type II or unspecified type diabetes jena litus without mention of complication, not stated as uncontrolled Diabetic peripheral neuropathy (HRC) Type II or unspecified type diabetes jena litus with neurological manifestations, not stated as uncontrolled Pain, lumbar region Lumbago Other chronic pain Essential hypertension (HRC) Unspecified essential hypertension Atrial flutter, unspecified type (HRC) Osteopenia, unspecified location Pacemaker Cardiac pacemaker in situ S/P gastric bypass Bariatric surgery status Other fall on same level, initial encoun ter Plan of Care - Pop Green RN - 10/03/2021 3:45 PM CST Patient called the unit on this date with some sort of medical question. Attempted to return the call now, patient did not answer and has a VM box that is not set up. Will try again later INIST CLASS B Plan of Care - Brenda Bar RN - 10/03/2021 3:24 PM CST [facility] Discharge Note - Nursing Admission Date/Time: 09/30/2021 5:33 PM Attending MD: Martha Gottlieb MD Patient discharged: to Home. Discharge Date: 10/03/2021 Discharge Time: 3:24 PM Patient accompanied by: self and escort car driver (TSI). Transported by: Wheelchair Valuables were taken home by patient: Yes Discharge instructions given and explained to patient: Yes Discharge Patient Education Plan completed, taught, and provided to patient/caregiver at discharge: Yes ?? Discussed medication risks with patient ?? Patient understands medications usage and side effects ?? Patient understands diagnosis ?? Action Plan for management of symptoms/side effects/complications requiring medical attention established and shared with patient/caregiver Was patient discharged on Warfarin? {(Do not delete line; Warfarin documentation is required) No Patients general condition on discharge: VSS, pt understands and asks questions about DC instructions. SBA with walker to , belongings and walker sent with pt and transportation person. All medical devices (telemetry/IV/etc) unless otherwise ordered, have been removed and stored: Yes --- End of Report --- INIST CLASS B Plan of Care - Afshan Guajardo RN - 10/03/2021 3:09 PM CST I completed a full assessment and assessments as ordered and per policy on this patient during my work shift. Reassessments completed during my work shift are unchanged unless documented. INIST CLASS B Plan of Care - Dilcia Barr RN - 10/03/2021 2:02 PM CST Care Management Discharge Note Discharge Information: Expected Discharge Date: 10/03/21 Expected Discharge Time: 1700 Patient to be Discharged to: Home Date Transport Needed: 10/03/21 Discharge transport needs:: Wheelchair - Standard Number of Stairs to Enter Home: 2 (reports x2 to enter with no rail once entrance, otherwise ramp toenter other entrance) Number of Stairs Within Home: 10 (down to shower in basement) Contacts: Emergency Contacts Receivable Executive (Rel.) Home Phone Work Phone Mobile Phone Magali Luna (Spouse) [phone] -- -- Decline,Pt 03/23/2018 -- -- -- Readmission Risk: 9.8 % Predictive Model Details 10% Factor Value Risk of Unplanned Readmission Model 23% Number of active Rx orders 33 20% Active NSAID Rx order present 10% Active antipsychotic Rx order present 10% ECG/EKG order present in last 6 months 8% Latest BUN high (30 mg/dL) 7% Imaging order present in last 6 months 6% Latest hemoglobin low (5.6 g/dL) 6% Number of ED visits in last six months 1 5% Age 61 3% Current length of stay 2.571 days 2% Future appointment scheduled 1% Active ulcer medication Rx order present Interventions: Additional Comments: Case discussed in care rounds. Advanced Quality Engineer was notified that patient needing assistance with transportation home. I met with patient, he is needing a wheelchair ride home today. His will be home when he arrives but she is unable to drive. He has a ramp to enter the home and has [employer] PMAP. Ride re quested and obtained for 1415. PT recommending outpatient PT, pt prefers to go to [facility] for outpatient PT. Paged ortho international student advisor and obtained order which I printed and gave to the patient and instructed him to call [facility] and they will want him to bring printed order to appt. Dilcia Barr RN INIST CLASS B Plan of Care - Linda Longo RN - 10/03/2021 7:28 AM CST I completed a full assessment and assessments as ordered and per policy on this patient during my work shift. Reassessments completed during my work shift are unchanged unless documented. INIST CLASS B Plan of Care - Brenda Bar RN - 10/02/2021 9:17 PM CST Pt cooperative with focused assessments this shift and scheduled vitals per unit routine. Medicated per NOV, declining all scheduled medications and pain medications as well. I completed a full assessment and assessments as ordered and per policy on this patient during my work shift. Reassessments completed during my work shift are unchanged unless documented. INIST CLASS B Plan of Care - Kera Reeder RN - 10/02/2021 2:58 PM CST I completed a full assessment and assessments as ordered on this patient during my work shift. Reassessments completed during my work shift are unchanged unless documented. INIST CLASS B Plan of Care - Sommer Lowery RN - 10/02/2021 1:16 AM CST Plan of Care Note Assessment: Plan of care Plan: Assess and intervene as needed Subjective: I just dont understand why I need it Objective: AO. Admitted with L femur fracture following fall. POD 1 ORIF/IM nail. Pt reports pain istolerable this shift, no PRNs given. Pt and nurse discussed IM antibiotics at length, ultimately pt continues to refuse administration. I completed a full assessment and assessments as ordered and per policy on this patient during my work shift. Reassessments completed during my work shift are unchanged unless documented. --- End of Report --- INIST CLASS B Plan of Care - Brenda Bar RN - 10/01/2021 6:21 PM CST Ortho and care team from floor in room for conference to find out what pt was agreeable to during stay during the night. Pt aware he no longer has PIV and will not get any fluids or ABX at this time. Limiting in and out of staff in room, pt will call for pain medications and is agreeable to vitals q8h, ortho ok with this. Assessments limited to what pt is willing to answer and let RN do. INIST CLASS B Plan of Care - Josep Cervantes MD - 10/01/2021 6:15 PM CST Brief orthopedic update Orthopedic on-call resident was paged regarding this patient's disruptive behavior as nursing had called security on him. This occurred just prior to the start of my shift, and I quickly went to the patient's room to assist in the discussions with the patient. The patient had apparently been calling security racist epithets and refusing essentially all care from nursing. At some point today, his peripheral IV had been removed, and he has refused placement of another IV. We explained to the patient that this would mean he would be unable to receive any fluids or IV antibiotics. We did discuss the risks of his refusal, and the patient expressed his understanding. We further discussed that if the patient truly felt like he needed to leave tonight that he could. He states that he would not have a ride to leave this evening. He is also refusing all injectable anticoagulation. We also explained that this increases his risk of DVT or blood clot. Due to the patient's agitation regarding the frequency of visits to his room, we agreed that we would limit this as much as possible and change his vitals toQ shift. I discussed with nursing that we should limit our entry into his room as much as possible unless he is asking for more p.o. pain medications, if there is concern regarding his vitals or mentation, or if he is making nursing staff feel unsafe. All this was relayedd to the patient and agreed upon by [facility]. Josep Cervantes MD Orthopaedic Surgery, PGY-2 Pager: [phone] INIST CLASS B Plan of Care - Brenda Bar RN - 10/01/2021 5:06 PM CST [facility]. Practitioner Notified Note Name of Practitioner notified: Ortho consult Time of Practitioner notification: 5:08 PM Reason: E. Hol., [id number], Pt stating he will leave hospital without coming to floor. Not situationcan, security aware. Response: Ortho team coming up to talk to pt with security at bedside. Will notify pt at that time that is unable to come to floor. INIST CLASS B Plan of Care - Estephania Mejia RN - 10/01/2021 2:19 PM CST Plan of Care Note Assessment: aggression, safety, pre-op, blood transfusion Plan: Continue to monitor and intervene as needed Subjective: You better get out of here! I'm not answering any of your questions. Objective: Patient is A and O x 4 and currently on bedrest for fracture. At the start of the shift patient was verbally abusive and refused to answer assessment questions. Blood transfusion was runningand completed in morning prior to patient leaving for OR. Patient refused CHG wipes for current and previous shifts. Patient refused to removed earrings and 1 ring. Ortho provider came to see patient in morning due to patient lack of cooperation. Provider said they would take him down to or and do thewipes there. Patient left for OR around 9 AM by cart and on room air in stable condition. Patient did not return prior to the 1500 shift change. I completed a full assessment and assessments as ordered and per policy on this patient during my work shift. Reassessments completed during my work shift are unchanged unless documented. --- End of Report --- INIST CLASS B Plan of Care - Ladan Najera RN - 10/01/2021 10:08 AM CST [facility]. Practitioner Notified Note Name of Practitioner notified: Dr Gottlieb Time of Practitioner notification: 10:08 AM Reason: Luna, Ed: Can you come back to patient in STCU 2? Patient refusing blood products and needs to sign on consent. Thanks. Response: Will come see patient INIST CLASS B Plan of Care - Estephania Mejia RN - 10/01/2021 9:04 AM CST Nursing Pre-Op Note Admission Date/Time: 09/30/2021 5:33 PM Time of transport to the Operating Room: 903 Transported by: Litter/cart Pre-Op checklist complete?: yes INIST CLASS B Plan of Care - Diana Early RN - 10/01/2021 3:56 AM CST Plan of Care Note Assessment: Plan of care Plan: Assess and address Subjective: I don't trust the blood Objective: Patient came to the floor around 2130 agitated. Patient is A&O x4 and on bedrest. Patient refused narcotic pain medication, despite pain level on LLE. Refused body audit, weight and was not able to give medication hx. Hemoglobin was 6.0, 2 units ordered. Patient refused blood despite talking to two providers. Concerned about heather communicable diseases. Bead Filler stated this may delay his surgery. Patient states that he was being forced to get blood. Bead Filler explained the safety concerns of low hemoglobin and surgery. Patient stated he did not want to talk about it anymore. Aboutan hour later patient stated that he would take the blood under protest. Bead Filler clarified that this meant he was consenting. Patient confirmed. Started transfusion of 2 units. I completed a full assessment and assessments as ordered and per policy on this patient during my work shift. Reassessments completed during my work shift are unchanged unless documented. --- End of Report --- INIST CLASS B Plan of Care - Josep Cervantes MD - 10/01/2021 12:03 AM CST Brief orthopedic update I was paged by nursing regarding the patient's unwillingness to receive a blood transfusion. The patient has great concern about the possibility of receiving a blood borne illness such as HIV or hepatitis C from his transfusion. I explained to him that the risks of receiving a blood borne illness froma blood transfusion at this point is on the order of 1 in a million to 10s of millions, and ultimately, that the risk is too small to give a meaningful number. I discussed that our blood bank screens every blood donation for blood borne and other illnesses. He stated that he guessed that the people screening the blood were democrats, and that this country is ???going to [facility]?? . I recognized that thepatient has reservations about receiving a blood transfusion, and I explained that we are hoping to make it safer for him in the perioperative perioed. I explained that at his current level of anemia, that his surgery would potentially be quite unsafe. I further discussed that at his current level of a nemia, that this could potentially delay his surgery. The patient became quite upset by this and suggested that he was being forced to receive blood against his will. I repeatedly expressed that he mayexcept or refuse any care that we suggest, and that as a surgical team we can only make our best recommendations for his health. He suggested that this felt like [employer] [place]. He repeatedly statedthat the only circumstances under which he would be willing to receive blood is if I personally drafted a statement or letter that would allow him to yudi me personally, his nurse, and [facility] if he received any sort of blood borne illness from a transfusion. I explained that [facility] does not have such statements. Ultimately, I requested that he consider further over the next few hours the possibility of receiving a blood transfusion, and that I would return to talk with him later this morning. I discussed his refusal with Dr. Ty who had a very similar experience to me. He further stated that he has been unable to obtain much medical or medication history from the patient. He did feel that from a cardiac standpoint, that the patient may be optimized for surgery, but with a hemoglobin of 6.0, that he would likely not consider this patient optimized for surgery. This is very reasonable. I stated I would attempt to rediscuss with the patient later this morning, and update the medicine cross cover team accordingly. Josep Cervantes MD Orthopaedic Surgery, PGY-2 Pager: [phone] INIST CLASS B Triage Assessment Note - Yari Adams RN - 09/30/2021 5:35 PM MACHINIST CLASS B Patient arrived by [facility] from Hospital with chief complaint: Femur fracture Symptoms/background (EMS narrative): Pt. Was at home and slipped on the ice and fell on the left knee. CMS intact. Leg was splinted at [place] [facility]. Has been given dilaudid for pain. Interventions/abnormal vitals: VSS. 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 INIST CLASS B documented in this encounter Admitting Diagnoses Diagnosis Closed fracture of left distal femur (HR C) Closed fracture of unspecified part of l ower end of femur documented in this encounter Administered Medications Inactive Administered Medications - up to 3 most recent administrations Medication Order MAR Action Action Date Dose Rate Site acetaminophen (TYLENOL) tablet 1,000 mg 1,000 mg, Oral, TID, First dose on Thu10/01/21 at 0800 , Until Discontinued benzocaine-menthol (CEPACOL) lozenge 1 L ozenge 1 Lozenge, Oral, Q2H PRN, Throat Pain, S tarting on Thu09/30/21 at 2142, Until Ruth 10/03/21 at 1754 bisacodyl (DULCOLAX) rectal suppository 10 mg 10 mg, Rectal, DAILY PRN, Constipation, No stool in the last 3 days, Starting on Thu09/30/21 at 2142, Until Thu10/03/21 a t 1754, Cumulative bowel medication orders. If no stool in last day start Senna-S BI D PRN no stool, if no stool in last 2 days add Miralax DAILY PRN no stool, if no stool in last 3 days add bisacodyl suppository DAILY PRN until patient stools. When patie nt stools stop giving PRN meds and continue monitoring for bowel activity. When no stools X 1 day, begin regimen again until patient stools., Post-op calcium carbonate (TUMS) chewable tablet Given 10/03/2021 9:32 A M MACHINIST CLASS B 1,000 mg 500-1,000 mg 500-1,000 mg, Oral, QID PRN, Heartburn, Dyspepsia, Starting on Thu09/30/21 at 2142, Until Ruth 10/03/21 at 1754, Each tablet provides 200 mg elemental calcium Given 10/02/2021 7:13 PM MACHINIST CLASS B 1,000 mg Given 10/02/2021 2:30 PM MACHINIST CLASS B 1,000 mg dextrose (D50) injection 25 g 25 g, Intravenous, Q15MIN PRN, Hypoglycemia, Per Adult Hypoglycemia Treatment Protocol, Starting on Thu09/30/21 at 214 2, Per Hypoglycemic episode: Give 25g IV push, recheck POCT glucose in 15 minutes , if result less than 70mg/dL, may repeat. After 2 doses notify Practitioner. May continue to karolyn at while waiting for call back. fentaNYL (SUBLIMAZE) injection 25-50 mcg Given 10/01/2021 3:35 PM MACHINIST CLASS B 25 mcg 25-50 mcg, Intravenous, [id number], Pain, Starting on Thu10/01/21 at 1412, Until Thu10/01/21 at 1624, PACU USE ONLY 25 mcg IV q5min prn based on the patient's pain scale rating for mild to moderate pain (1 to 5). 50 mcg IV q5min prn based on the patient's pain scale rating for moderate to severe pain (6 to 10). Total PACU fentanyl dose not to exceed 3 mcg/kg. Use fentanyl initially for a short acting agent for treatment of acute post operative pain. May use in conjuction with a longer acting agent for optimal pain control. Respiratory rate must be greater than 10 to administer medications., PACU (only) Given 10/01/2021 3:20 PM MACHINIST CLASS B 50 mcg Given 10/01/2021 3:12 PM MACHINIST CLASS B 25 mcg fentaNYL (SUBLIMAZE) injection 50 mcg Given 09/30/2021 6:19 PM MACHINIST CLASS B 50 mcg 50 mcg, Intravenous, ONCE, On Thu09/30/21 at 1830, For 1 dose glucagon rDNA (diagnostic) (GLUCAGEN) in jection 1 mg 1 mg, Intramuscular, Q15MIN PRN, Hypoglycemia, Per Momo lt Hypoglycemia Treatment Protocol, Starting on Thu09/30/21 at 2142, Until Thu at 1754, Per Hypoglycemic episode: Give 1mg IM, turn patient on side to prevent aspiration if vomits. If appropriate, establish IV access STAT. Rech jennifer POCT glucose in 15 minutes, if result less than 70mg/dL and still no IV access, may repeat 1mg IM x 1. Recheck POCT glucose in 15 minutes, if result is less than 70mg/dL notify Practitioner. glucose (GLUTOSE) oral gel 15 g of gluco se 15 g of glucose, Oral, Q15MIN PRN, Hypog lycemia, Per Adult Hypoglycemia Treatment Protocol, Starting on Thu09/30/21 at 2142, Until Thu at 1754, Give 15g orally, recheck POCT glucose in 15 minutes, if result less than 70mg/dL, may repeat. After 2 doses notify Practitione r. May continue to treat while waiting for call back. 37.5g tube delivers 15g of glucose insulin lispro (HumALOG) injection vial 1-4 Units 1-4 Units, Subcutaneous, HS, First dose on Thu10/01/21 at 2100, Correction Scale Insulin: Blood Sugar 201-250 give 1 unit s Blood Sugar 251-300 give 2 units Blood Sugar 301-350 give 3 units Blood Sugar g reater than 350 give 4 units If Blood Sugar still greater than 350 after next POCT Glucose, notify Practitioner Hazardous waste, dispose of in Black Box. insulin lispro (HumALOG) injection vial 1-5 Units 1-5 Units, Subcutaneous, TID WITH MEALS, First dose on Thu10/01/21 at 1730, Correction Scale Insulin: Can be given w ith carb based insulin OR if patient is not eating or NPO, give within 15 minutes of POCT glucose. Blood Sugar 150 - 200 give 1 units Blood Sugar 201-250 give 2 units B lood Sugar 251-300 give 3 units Blood Sugar 301-350 give 4 units Blood Sugar greater than 350 give 5 units If Blood Sugar still greater than 350 after next POCT Glucose, notify Pract itioner Hazardous waste, dispose of in Black Box. ketorolac (TORADOL) injection 15 mg Given 09/30/2021 10:34 PM MACHINIST CLASS B 15 mg 15 mg, Intravenous, Q6H PRN, Pain, Starting on Thu09/30/21 at 2142, Until Ruth 10/03/21 at 1508, For 8 doses, Hold all NSAIDS if SBP less than 100 mmHg. lactated ringers infusion Started 10/01/2021 1:51 PM MACHINIST CLASS B Intravenous, at 30 mL/hr, CONTINUOUS, Starting on Thu10/01/21 at 0845, If IV started. Continuous., Pre-op Restarted 10/01/2021 1:03 PM MACHINIST CLASS B Restarted 10/01/2021 10:17 AM MACHINIST CLASS B methocarbamol (ROBAXIN) tablet 500 mg Given 09/30/2021 10:35 PM MACHINIST CLASS B 500 mg 500 mg, Oral, Q6H PRN, Muscle Spasms, Starting on Thu09/30/21 at 2142, Until Ruth 10/03/21 at 1754 metoclopramide (REGLAN) injection 5 mg 5 mg, Intravenous, Q6H PRN, Nausea, Vomiting, Starting on Thu09/30/21 at 2142, Until Ruth 10/03/21 at 1754, Give 1st line medications, then 2nd line, then 3rd line. Progress to next line if medication is i neffective after 15 minutes, or has been previously ineffective, or if a medication for a line is not ordered. May use medication from any line if patient pref erence indicates. If third line agent is ineffective, call Practitioner. If unable to give IV m edications contact Practitioner. Aromatherapy may be used a t any time as adjunct therapy. 1st Line - ondansetron 2nd Line -prochlorperazine 3rd Line - meto clopramide ondansetron (ZOFRAN) injection 4 mg 4 mg, Intravenous, Q8H PRN, Nausea, Vomiting, Starting on Thu09/30/21 at 2142, Until Ruth 10/03/21 at 1754, Give 1st line medications, then 2nd line, then 3rd line. Progress to next line if medication is i neffective after 15 minutes, or has been previously ineffective, or if a medication for a line is not ordered. May use medication from any line if patient pref erence indicates. If third line agent is ineffective, call Practitioner. If unable to give IV m edications contact Practitioner. Aromatherapy may be used a t any time as adjunct therapy. 1st Line - ondansetron 2nd Line -prochlorperazine 3rd Line - meto clopramide oxyCODONE (ROXICODONE) immediate release tablet Given 10/03/2021 2:44 PM MACHINIST CLASS B 5 mg 5-10 mg 5-10 mg, Oral, Q4H PRN, Pain, Starting on Thu09/30/21 at 2142, Until Ruth 10/03/21 at 1754, Give PO opioid if able to take PO and pain not well controlled with other medications or interventions. Given 10/03/2021 9:32 AM MACHINIST CLASS B 10 mg Given 10/02/2021 11:09 AM MACHINIST CLASS B 5 mg polyethylene glycol (MIRALAX) oral powde r 17 g 17 g, Oral, DAILY PRN, Constipation, No stool in the last 2 days, Starting on Thu09/30/21 at 2142, Until Ruth 10/03/21 at 17 54, Cumulative bowel medication orders. If no stool in last day start Senna-S BID P RN no stool, if no stool in last 2 days add Miralax DAILY PRN no stool, if no stool in last 3 days add bisacodyl suppository DAILY PRN until patient stools. When patient stools st op giving PRN meds and continue monitoring for bowel activity. When no stools X 1 day, begin regimen again until patient stools., Post-op prochlorperazine (COMPAZINE) injection 1 0 mg 10 mg, Intravenous, Q6H PRN, Nausea, Vomiting, Startin g on Thu09/30/21 at 2142, Until Ruth 10/03/21 at 1754, Give 1st line medications, then 2nd line, then 3rd line. Progress to next line if medication is i neffective after 15 minutes, or has been previously ineffective, or if a medication for a line is not ordered. May use medication from any line if patient pref erence indicates. If third line agent is ineffective, call Practitioner. If unable to give IV m edications contact Practitioner. Aromatherapy may be used a t any time as adjunct therapy. 1st Line - ondansetron 2nd Line -prochlorperazine 3rd Line - meto clopramide sennosides-docusate sodium (SENOKOT S) 8 .6-50 MG per tablet 1 Tablet 1 Tablet, Oral, BID, First dose on Thu09/30/21 at 2200 , Until Discontinued, as laxative/stimulant, stool-softening agent, Post-op sennosides-docusate sodium (SENOKOT S) 8 .6-50 MG per tablet 2 Tablet 2 Tablet, Oral, BID PRN, Constipation, N o stool in the last day, Starting on Thu09/30/21 at 2142, Until Ruth 10/03/21 at 17 54, Cumulative bowel medication orders. If no stool in last day start Senna-S BID P RN no stool, if no stool in last 2 days add Miralax DAILY PRN no stool, if no stool in last 3 days add bisacodyl suppository DAILY PRN until patient stools. When patient stools st op giving PRN meds and continue monitoring for bowel activity. When no stools X 1 day, begin regimen again until patient stools., Post-op sodium chloride 0.9% infusion Started 09/30/2021 11:31 PM MACHINIST CLASS B 125 mL/hr Intravenous, at 125 mL/hr, CONTINUOUS, Starting on Thu09/30/21 at 2200 documented in this encounter Active and Recently Administered Medications Times are shown in MACHINIST CLASS B. Scheduled Medication Order 10/01/2021 10/02/2021 10/03/2021 acetaminophen (TYLENOL) tablet 1,000 mg 0844 (Not Give n - Provider: Estephania Mejia RN - Reason: Patient not available)1503 (Not Given - Provider: Estephania Mejia RN - Reason: Patient not available) 0919 (Not Given - Provider: Kera Reeder RN - Reason: Patient/family refused)1320 (Not Given - Provider: Kera Reeder RN - Reason: Patient/family refused) 0934 (Not Given - Provider: Afshan Guajardo RN - Reason: Patient/family refused)1500 (Not Given - Provider: Afshan Guajardo RN - Reason: Patient/family refused) 1,000 mg, Oral, TID, First dose on Thu10/01/21 at 0800 , Until Discontinued 2130 (Not Given - Provider: Brenda Bar RN - Reason: Patient/family refused - Comment: I don't want it unless you give it to me how I take it at home I take 3 extra strength arthritis BID.) 1913 (Not Given - Provider: Brenda Bar RN - Reason: Patient/family refused) ceFAZolin in sodium chloride 0.9% (ANCEF) IVPB 2 g (CO MPLETED) 1030 (Given - Provider: Pooja Whitlock APRN, CRNA) 2 g, Intravenous, Administer over 30 Min utes, ONCE (NON-SCHEDULED), Starting on Thu10/01/21 at 0828, For 1 dose, For patient weight less than or equal to 119 kg PRE-OP, Pre-op insulin lispro (HumALOG) injection vial 1-4 Units(Link ed Group 1) 2131 (Not Given - Provider: Brenda Bar RN - Reason: Patient/family refused - Comment: Refused FSG, I'm not diabetic.) 2019 (Not Given - Provider: Brenda Bar RN - Reason: Patient/family refused - Comment: FSG not done, per pt, I am not diabetic anymore.) 1-4 Units, Subcutaneous, HS, First dose on Thu10/01/21 at 2100, Correction Scale Insulin: Blood Sugar 201-250 give 1 units Blood Sugar 251-300 give 2 units Blood Sugar 301-350 give 3 units Blood Sugar g reater than 350 give 4 units If Blood Kiran gar still greater than 350 after next POCT Glucose, notify Practitioner Hazardous waste, dispose of in Black Box. insulin lispro (HumALOG) injection vial 1-5 Units(Link ed Group 1) 2130 (Not Given - Provider: Brenda Bar RN - Reason: Patient/family refused - Comment: I'm not diabetic.) 918 (Not Given - Provider: Kera ordonez RN - Reason: Patient/family refused)1116 (Not Given - Provider: Kera Reeder RN - Reason: Patient/family refused) 0935 (Not Given - Provider: Afshan Guajardo RN - Reason: Patient/family refused)1100 (Not Given - Provider: Afshan Guajardo RN - Reason: Patient/family refused - Comment: States he does not take insulin) 1-5 Units, Subcutaneous, TID WITH MEALS, First dose on Thu10/01/21 at 1730, Correction Scale Insulin: Can be given with carb based insulin OR if patient is not eating or NPO, give within 15 minutes of P 1600 (N ot Given - Provider: Brenda Bar RN - Reason: Patient/family refused - Comment: Refused FSG) OCT glucose. Blood Sugar 150 - 200 give 1 units Blood Sugar 201-250 give 2 units Blood Sugar 251-300 give 3 units Blood Sugar 301-350 give 4 units Blood Sugar greater than 350 give 5 units If Blood Suga r still greater than 350 after next POCT Glucose, notify Practitioner Hazardous waste, dispose of in Black Box. sennosides-docusate sodium (SENOKOT S) 8.6-50 MG per t ablet 1 Tablet 0828 (Not Given - Provider: Estephania Mejia RN - Reason: Patient/family refused)2132 (Not Given - Provider: Brenda Bar RN - Reason: Patient/family refused) 0920 (Not Given - Provider: Kera ordonez RN - Reason: Patient/family refused)1916 (Not Given - Provider: Brenda Bar RN - Reason: Patient/family refused) 1009 (Not Given - Provider: Afshan Guajardo RN - Reason: Patient/family refused) 1 Tablet, Oral, BID, First dose on Thu at 2200, Until Discontinued, as laxative/stimulant, stool-softening agent, Post-op tranexamic acid (CYKLOKAPRON) 1000 mg in sodium chloride 0.9% (10 mg/mL) 100 mL IVPB premix (COMPLETED) 1036 (Given - Provider: Pooja Simmons APRN, RIGGER CHIEF) 1,000 mg, Intravenous, ONCE, On 10/01 at 0900, For 1 dose, Administer once at incision and once at start of closure., Pre-op tranexamic acid (CYKLOKAPRON) 1000 mg in sodium chloride 0.9% (10 mg/mL) 100 mL IVPB premix (COMPLETED) 1359 (Given - Provider: Pooja Simmons APRN, CRNA) 1,000 mg, Intravenous, ONCE, On 10/01 at 0900, For 1 dose, Administer once at incision and once at start of closure., Pre-op Continuous Medication Order 10/01/2021 10/02/2021 10/03/2021 lactated ringers infusion (CANCELED) 0937 (Started - P rovider: Irma Barr RN)1016 (Stopped - Provider: Pooja Whitlock APRN, CRNA - Comment: Switch to gravity)1017 (Restarted - Provider: Pooja Whitlock APRN, CRNA) Intravenous, at 30 mL/hr, CONTINUOUS, St arting on Thu10/01/21 at 0845, If IV started. Continuous., Pre-op 1251 (Infused - Provider: Pooja Quinn APRN, CRNA)1303 (Restarted - Provider: Pooja Whitlock APRN, CRNA)1351 (Started - Provider: Pooja Whitlock APRN, CRNA)1359 (Anesthesia Fluid - Provider: Pooja Whitlock APRN, CRNA) 1441 (Infused - Provider: Pooja Whitlock APRN, CRNA) PRN Medication Order 10/01/2021 10/02/2021 10/03/2021 benzocaine-menthol (CEPACOL) lozenge 1 Lozenge 1 Lozenge, Oral, Q2H PRN, Throat Pain, S tarting on Thu09/30/21 at 2142, Until Ruth 10/03/21 at 1754 bisacodyl (DULCOLAX) rectal suppository 10 mg(Linked Group 2) 10 mg, Rectal, DAILY PRN, Constipation, No stool in the last 3 days, Starting on Thu09/30/21 at 2142, Until Thu10/03/21 at 1754, Cumulative bowel medication orders. If no stool in last day start Senna-S BID PRN no stool, if no stool in last 2 days add Miralax DAILY PRN no stool, if no stool in last 3 days add bisacodyl suppository DAILY PRN until patient stools. When patient stools stop giving PRN med s and continue monitoring for bowel acti vity. When no stools X 1 day, begin regimen again until patient stools., Post-op calcium carbonate (TUMS) chewable tablet 500-1,000 mg 1430 (Given - Provider: Kera Reeder, SIMEON)1913 (Given - Provider: Brenda Bar, SIMEON) 0932 (Given - Provider: Afshan Guajardo RN) 500-1,000 mg, Oral, QID PRN, Heartburn, Dyspepsia, Starting on Thu09/30/21 at 2142, Until Ruth 10/03/21 at 1754, Each tablet provides 200 mg elemental calcium dextrose (D50) injection 25 g(Linked Group 3) 25 g, Intravenous, Q15MIN PRN, Hypoglyce jennifer, Per Adult Hypoglycemia Treatment Protocol, Starting on Thu09/30/21 at 2142, Per Hypoglycemic episode: Give 25g IV push, recheck POCT glucose in 15 minutes, i f result less than 70mg/dL, may repeat. After 2 doses notify Practitioner. May continue to treat while waiting for call back. fentaNYL (SUBLIMAZE) injection 25-50 mcg (CANCELED) 15 12 (Given - Provider: Anika Lazo RN)1520 (Given - Provider: Anika Lazo RN)1535 (Given - Provider: Anika Lazo RN) 25-50 mcg, Intravenous, [id number], Pain, Starting on Thu10/01/21 at 1412, Until Thu10/01/21 at 1624, PACU USE ONLY 25 mcg IV q5min prn based on the patient's pain scale rating for mild to moderate pain ( 1 to 5). 50 mcg IV q5min prn based on e patient's pain scale rating for moderate to severe pain (6 to 10). Total PACU fentanyl dose not to exceed 3 mcg/kg. Use fentanyl initially for a short acting ag ent for treatment of acute post operativ e pain. May use in conjuction with a longer acting agent for optimal pain control. Respiratory rate must be greater than 10 to administer medications., PACU (only) glucagon rDNA (diagnostic) (GLUCAGEN) injection 1 mg(Linked Grou p 3) 1 mg, Intramuscular, Q15MIN PRN, Hypogly cemia, Per Adult Hypoglycemia Treatment Protocol, Starting on Thu09/30/21 at 2142, Until Ruth 10/03/21 at 1754, Per Hypoglycemic episode: Give 1mg IM, turn patient on side to prevent aspiration if vomits. If appropriate, establish IV access STAT. Recheck POCT glucose in 15 minutes, if result less than 70mg/dL and still no IV access, may repeat 1mg IM x 1. Recheck POCT glucose in 15 minutes, if result is less than 70m g/dL notify Practitioner. glucose (GLUTOSE) oral gel 15 g of glucose(Linked Group 3) 15 g of glucose, Oral, Q15MIN PRN, Hypog lycemia, Per Adult Hypoglycemia Treatment Protocol, Starting on Thu09/30/21 at 2142, Until Ruth 10/03/21 at 1754, Give 15g orally, recheck POCT glucose in 15 minute s, if result less than 70mg/dL, may repe at. After 2 doses notify Practitioner. May continue to treat while waiting for call back. 37.5g tube delivers 15g of glucose methocarbamol (ROBAXIN) tablet 500 mg 500 mg, Oral, Q6H PRN, Muscle Spasms, St arting on Thu09/30/21 at 2142, Until Ruth 10/03/21 at 1754 metoclopramide (REGLAN) injection 5 mg(Linked Group 4) 5 mg, Intravenous, Q6H PRN, Nausea, Vomi ting, Starting on Thu09/30/21 at 2142, Until Ruth 10/03/21 at 1754, Give 1st line medications, then 2nd line, then 3rd line. Progress to next line if medication is ineffective after 15 minutes, or has bee n previously ineffective, or if a medication for a line is not ordered. May use medication from any line if patient preference indicates. If third line agent is i neffective, call Practitioner. If unable to give IV medications contact Practitioner. Aromatherapy may be used at any time as adjunct therapy. 1st Line - ondansetron 2nd Line -prochlorperazine 3rd Line - metoclopramide ondansetron (ZOFRAN) injection 4 mg(Linked Group 4) 4 mg, Intravenous, Q8H PRN, Nausea, Vomi ting, Starting on Thu09/30/21 at 2142, Until Ruth 10/03/21 at 1754, Give 1st line medications, then 2nd line, then 3rd line. Progress to next line if medication is ineffective after 15 minutes, or has bee n previously ineffective, or if a medication for a line is not ordered. May use medication from any line if patient preference indicates. If third line agent is i neffective, call Practitioner. If unable to give IV medications contact Practitioner. Aromatherapy may be used at any time as adjunct therapy. 1st Line - ondansetron 2nd Line -prochlorperazine 3rd Line - metoclopramide oxyCODONE (ROXICODONE) immediate release tablet 5-10 mg 1109 (Given - Provider: Kera Reeder, SIMEON) 0932 (Given - Provider: Afshan cabrera, SIMEON)1444 (Given - Provider: Afshan Guajardo, SIMEON) 5-10 mg, Oral, Q4H PRN, Pain, Starting o n Thu09/30/21 at 2142, Until Ruth 10/03/21 at 1754, Give PO opioid if able to take PO and pain not well controlled with other medications or interventions. polyethylene glycol (MIRALAX) oral powder 17 g(Linked Group 2) 17 g, Oral, DAILY PRN, Constipation, No stool in the last 2 days, Starting on Thu09/30/21 at 2142, Until Thu10/03/21 at 1754, Cumulative bowel medication orders. If no stool in last day start Senna-S BI D PRN no stool, if no stool in last 2 da ys add Miralax DAILY PRN no stool, if no stool in last 3 days add bisacodyl suppository DAILY PRN until patient stools. When patient stools stop giving PRN meds a nd continue monitoring for bowel activit y. When no stools X 1 day, begin regimen again until patient stools., Post-op prochlorperazine (COMPAZINE) injection 10 mg(Linked Group 4) 10 mg, Intravenous, Q6H PRN, Nausea, Vom iting, Starting on Thu09/30/21 at 2142, Until Thu10/03/21 at 1754, Give 1st line medications, then 2nd line, then 3rd line. Progress to next line if medication is ineffective after 15 minutes, or has be en previously ineffective, or if a medication for a line is not ordered. May use medication from any line if patient preference indicates. If third line agent is ineffective, call Practitioner. If unabl e to give IV medications contact Practitioner. Aromatherapy may be used at any time as adjunct therapy. 1st Line - ondansetron 2nd Line -prochlorperazine 3rd Line - metoclopramide sennosides-docusate sodium (SENOKOT S) 8 .6-50 MG per tablet 2 Tablet(Linked Group 2) 2 Tablet, Oral, BID PRN, Constipation, N o stool in the last day, Starting on Thu09/30/21 at 2142, Until Thu10/03/21 at 1754, Cumulative bowel medication orders. If no stool in last day start Senna-S BID PRN no stool, if no stool in last 2 day s add Miralax DAILY PRN no stool, if no stool in last 3 days add bisacodyl suppository DAILY PRN until patient stools. When patient stools stop giving PRN meds an d continue monitoring for bowel activity . When no stools X 1 day, begin regimen again until patient stools., Post-op Linked Groups Order Group 1: insulin lispro (HumALOG) injection vial 1-5 UnitsJump to med 1-5 Units, Subcutaneous, TID WITH MEALS, First dose on Thu10/01/21 at 1730
Correction Scale Insulin: Can be given with carb based insulin OR if patient is not eating or NPO, give withi n 15 minutes of POCT glucose. &nbsp ;Blood Sugar 150 - 200 give 1 units Blood Sugar 201-250 give 2 units Blood Sugar 251-300 give 3 units Blood Sugar 301-350 give 4 units Blood Sugar greater than 35 0 give 5 units If Blood Sugar still greater than 350 after next POCT Glucose, notify Practitioner Hazardous waste, dispose of in Black Box.
And insulin lispro (HumALOG) injection vial 1-4 UnitsJump to med 1-4 Units, Subcutaneous, HS, First dose on Thu10/01/21 at 2100
Correction Scale Insulin: Blood Sugar 201-250 give 1 units Blood Sugar 251-300 give 2 units B lood Sugar 301-350 give 3 units Blo od Sugar greater than 350 give 4 units If Blood Sugar still greater than 350 after next POCT Glucose, notify Practitioner Hazardous waste, dispose of in Black Box.
Group 2: sennosides-docusate sodium (SENOKOT S) 8.6-50 MG per tablet 2 TabletJump to med 2 Tablet, Oral, BID PRN, Constipation, N o stool in the last day, Starting on Thu09/30/21 at 2142, Until Thu10/03/21 at 1754
Cumulative bowel medication orders. If no stool in last day start Senna-S BID PRN no stool , if no stool in last 2 days add Miralax DAILY PRN no stool, if no stool in last 3 days add bisacodyl suppository DAILY PRN until patient stools. &nb sp; When patient stools stop giving PRN meds and continue monitoring for bowel activity. When no stools X 1 day, begin regimen again until patient stools.
Post-op Or polyethylene glycol (MIRALAX) oral powder 17 gJump to med 17 g, Oral, DAILY PRN, Constipation, No stool in the last 2 days, Starting on Thu09/30/21 at 2142, Until Thu10/03/21 at 1754
Cumulative bowel medication orders. If no stool i n last day start Senna-S BID PRN no stoo l, if no stool in last 2 days add Miralax DAILY PRN no stool, if no stool in last 3 days add bisacodyl suppository DAILY PRN until patient stools. &n bsp; When patient stools stop giving PRN meds and continue monitoring for bowel activity. When no stools X 1 day, begin regimen again until patient stools.
Post-op Or bisacodyl (DULCOLAX) rectal suppository 10 mgJump to med 10 mg, Rectal, DAILY PRN, Constipation, No stool in the last 3 days, Starting on Thu09/30/21 at 2142, Until Thu10/03/21 at 1754
Cumulative bowel medication orders. If no stoo l in last day start Senna-S BID PRN no s tool, if no stool in last 2 days add Miralax DAILY PRN no stool, if no stool in last 3 days add bisacodyl suppository DAILY PRN until patient stools. &am p;nbsp; When patient stools stop giving PRN meds and continue monitoring for bowel activity. When no stools X 1 day, begin regimen again until patient stools.
Post-op Group 3: glucose (GLUTOSE) oral gel 15 g of glucoseJump to med 15 g of glucose, Oral, Q15MIN PRN, Hypog lycemia, Per Adult Hypoglycemia Treatment Protocol, Starting on Thu09/30/21 at 2142, Until Thu10/03/21 at 1754
Give 15g orally, recheck POCT glucose in 1 5 minutes, if result less than 70mg/dL, may repeat. After 2 doses notify Practitioner. May continue to treat while waiting for call back. 37.5g tube delivers 15g of glucose
Or dextrose (D50) injection 25 gJump to med 25 g, Intravenous, Q15MIN PRN, Hypoglyce jennifer, Per Adult Hypoglycemia Treatment Protocol, Starting on Thu09/30/21 at 2142
Per Hypoglycemic episode: Give 25g IV push, recheck POCT glucose in 15 minutes, if result less than 70mg /dL, may repeat. After 2 doses notify Practitioner. May continue to treat while waiting for call back.
Or glucagon rDNA (diagnostic) (GLUCAGEN) injection 1 mgJump to med 1 mg, Intramuscular, Q15MIN PRN, Hypogly cemia, Per Adult Hypoglycemia Treatment Protocol, Starting on Thu09/30/21 at 2142, Until Thu10/03/21 at 1754
Per Hypoglycemic episode: Give 1mg IM, turn patient on side to prevent aspi ration if vomits. If appropriate, establish IV access STAT. Recheck POCT glucose in 15 minutes, if result less than 70mg/dL and still no IV acc ess, may repeat 1mg IM x 1. R echeck POCT glucose in 15 minutes, if result is less than 70mg/dL notify Practitioner.
Group 4: ondansetron (ZOFRAN) injection 4 mgJump to med 4 mg, Intravenous, Q8H PRN, Nausea, Vomi ting, Starting on Thu09/30/21 at 2142, Until Ruth 10/03/21 at 1754
Give 1st line medications, then 2nd line, then 3rd line. Progress to next line if medica tion is ineffective after 15 minutes, or has been previously ineffective, or if a medication for a line is not ordered. May use medication from any line if patient preference indicates. If third line ag ent is ineffective, call Practitioner. I f unable to give IV medications contact Practitioner. Aromatherapy may be used at any time as adjunct therapy. 1st Line - ondansetron 2nd Line -prochlorperazine 3r d Line - metoclopramide
And prochlorperazine (COMPAZINE) injection 10 mgJump to med 10 mg, Intravenous, Q6H PRN, Nausea, Vom iting, Starting on Thu09/30/21 at 2142, Until Ruth 10/03/21 at 1754
Give 1st line medications, then 2nd line, then 3rd line. Progress to next line if medic ation is ineffective after 15 minutes, o r has been previously ineffective, or if a medication for a line is not ordered. May use medication from any line if patient preference indicates. If third line a gent is ineffective, call Practitioner. If unable to give IV medications contact Practitioner. Aromatherapy may be used at any time as adjunct therapy. 1st Line - ondansetron &nbsp ; 2nd Line -prochlorperazine 3 rd Line - metoclopramide
And metoclopramide (REGLAN) injection 5 mgJump to med 5 mg, Intravenous, Q6H PRN, Nausea, Vomi ting, Starting on 09/30/21 at 2142, Until Ruth 10/03/21 at 1754
Give 1st line medications, then 2nd line, then 3rd line. Progress to next line if medica tion is ineffective after 15 minutes, or has been previously ineffective, or if a medication for a line is not ordered. May use medication from any line if patient preference indicates. If third line ag ent is ineffective, call Practitioner. I f unable to give IV medications contact Practitioner. Aromatherapy may be used at any time as adjunct therapy. 1st Line - ondansetron 2nd Line -prochlorperazine 3r d Line - metoclopramide
And Aromatherapy - Q-easy (CANCELED) Routine, Q8H PRN, Starting on Thu 2 at 2142, Until Specified
Aromatherapy may be used at any time as adjunct therapy as needed for Nausea/Vomiting. documented in this encounter Care Teams Derrick Worker Well Service Relationship Specialty Start Date End Date Kevin Bullock MD PCP - General Family Practice 09/30/21 documented as of this encounter
--- OUTSIDE RECORDS SUMMARY | 2022-07-29 11:08 | XMS_ITS | Encounter Summary ---
:1960 Author Organization [facility] Address [address], [place] [address] Care Team Providers Name Role Phone Cintia Cobb MD Primary Care Provider [phone] Encounter Details Date Type Department Care Team Description 09/30/2021 Orders Only HIM DEPARTMENT Provider, Aguilar hernandez MD Interface provid er interface provider, DREW [id number] Social History Tobacco Use Types Packs/Day Years [...] 08/04/2022 Appointment Orthopedics Delgado Gottlieb MD [address] [place], [place] [address] (Gavi presley) 10/08/2022 Appointment [facility] [address] [facility] [place] [place] [address] (Gavi presley) 05/27/2023 Appointment Chemo Therapy/Infusion Services documented as of this encounter Procedures Procedure Name Priority Date/Time Associated Diagnosis Comme nts EKG 09/30/2021 Results for thi s procedure are in the resu lts section. documented in this encounter Results EKG (09/30/2021) Narrative This result has an attachment that is no t available. Interface Provider EKG documented in this encounter Visit Diagnoses Not on filedocumented in this encounter Care Teams Seo Coordinator Relationship Specialty Start Date End Date Cintia Cobb MD PCP - General Family Practice 09/30/21 documented as of this encounter
--- OUTSIDE RECORDS SUMMARY | 2022-07-29 11:08 | XMS_ITS | Encounter Summary ---
:1960 Author Organization [employer] Address [address] [place] [address] Care Team Providers Name Role Phone Ladan Song MD Primary Care Provider Unavailable Reason for Visit Reason Comments Symptoms Encounter Details Date Type Department Care Team Description 09/09/2021 Telephone [facility] Cesar Champagne MD Symptoms [address] [facility] [address] [place], [place] [address] [place], [place] [phone] (Wo rk) Social History Tobacco Use [...] encounter Nursing Notes Nathalia Stokes RN - 09/16/2021 11:07 AM CST Spoke to patient. Has been having some phone issues of not receiving calls, informed patient to check to see if [facility] and/or [facility] on blocked calls list, as several calls have been made to him. Informed him to also reach out to Jackie at [facility] as well. Symptoms were also discussed. TING OPERATOR Mehreen Bolton, RN - 09/09/2021 11:26 AM CST Called pt to review symptoms. No answer. LVM to call back to [facility] for any questions related to symptoms or repeat injection. If wanted to schedule surgery call Spine - see number listed below. TING OPERATOR Lesli Motley - 09/09/2021 9:10 AM CST Yarelis at [facility] asked for a nurse to call this patient regarding his symptoms. Symptoms are getting worse, he is falling and legs are buckling. [facility] does have insurance approval to book surgery and if he is ready to book he can call Jackie at [phone]. TING OPERATOR documented in this encounter Plan of Treatment Upcoming Encounters Date Type Specialty Care Team Description 08/04/2022 Appointment Orthopedics Delgado Gottlieb MD [address] [place], [place] [address] (Gavi presley) 10/08/2022 Appointment Orthopedics Delgado Gottlieb MD [address] [place], [place] [address] (Gavi presley) 05/27/2023 Appointment Chemo Therapy/Infusion Services documented as of this encounter Visit Diagnoses Not on filedocumented in this encounter Care Teams Director Center Relationship Specialty Start Date End Date Ladan Song MD PCP - General Internal Medicine 08/18/17 09/29/21 documented as of this encounter
--- OUTSIDE RECORDS SUMMARY | 2022-07-29 11:08 | XMS_ITS | Encounter Summary ---
:1960 Author Organization [facility] Address [address] [place] [address] Care Team Providers Name Role Phone Cintia Cobb MD Primary Care Provider [phone] Reason for Visit Auth/Cert Specialty Diagnoses / [...] Expiration Date Visits Requ ested Visits Authorized [id number] 1 1 Encounter Details Date Type Department Care Team Description 10/01/2021 Anesthesia Event RH Operating Room Yasmany Lewis MBBS [address] [place] [address] [place], [place] [id number] MD [address] [place] [id number] [place] [address] Anesthesia Record Procedure Summary Procedure Name Responsible Anesthesia Start Anesthesia Stop Anesthesiologist Time Time OPEN REDUCTION Yasmany Lewis MBBS 10/01/21 1017 10/01/21 1449 INTERNAL FIXATION SUPRACONDYLAR DISTAL FEMUR FRACTURE (Left: Leg) Events Date Time Event Comment 10/01/2021 1003 1017 An Start 1019 An Start Data 1023 An Induction 1024 An Intubation 1047 An Labs Blood glucose 10 3. No action needed. Hemocue 8.5 1110 An Tourn Inflated Left LE TQ up to 300mmHg. 1130 An Tourn Deflated 1142 MD/DO Present 1439 An Extubation Purposeful movem ent with spontaneous respirations and adequate air exchange. Suctioned and ETT removed. Transfe rred with oxygen to recovery. 1441 an stop data 1449 Care Handoff Note I discussed wi th [...] understanding of report Electr onically signed by Pooja Whitlock APRN, PRODUCTION TRAINER 1449 An Stop Care transferred . Name Total midazolam 2 mg/2 mL injection (aka VERSED) 2 mg fentaNYL injection (aka SUBLIMAZE) 5 mL lidocaine 1% PF injection aka (XYLOCAINE) 50 mg propofol 10 mg/mL for procedural sedation (aka diPRIva n) 100 mg rocuronium injection (aka ZEMURON) 150 mg succinylcholine injection (aka QUELICIN) 80 mg phenylephrine-NaCl 0.9% 100 mcg/mL syringe (aka KANA-SY NEPHRINE) 1,400 mcg dexamethasone 4 mg/mL injection (aka DECADRON) 4 mg ondansetron injection (aka ZOFRAN) 4 mg sugammadex injection 200mg/ 2mL (aka BRIDION) 200 mg ceFAZolin in sodium chloride 0.9% (ANCEF) IVPB 2 g 2 g tranexamic acid (CYKLOKAPRON) 1000 mg in sodium chlori de 0.9% (10 mg/mL) 1,000 mg 100 mL IVPB premix tranexamic acid (CYKLOKAPRON) 1000 mg in sodium chlori de 0.9% (10 mg/mL) 1,000 mg 100 mL IVPB premix ePHEDrine 5mg/ml in 0.9% sodium chloride syringe 15 mg albumin human 5% IV solution (aka ALBUMINAR,ALBUTEIN) 250 mL dexmedetomidine 20 mcg/5 mL injection 8 mcg lactated ringers infusion 1,100 mL Agents Name O2 Air Sevoflurane () Blood No blood administrations on file. Lines, Drains, and Airways Type Details Placement Removal Peripheral IV Placement Date: 09/30/21 1400 by 10/01/21 1800 b y 09/30/21; Placement Jelena Prado, RN Brenda Bar, Time: 1400; RN Pre-existing: Yes; Orientation: Right; Removal Date: 10/01/21; Removal Time: 1800; Removal Reason: Per Protocol (Pt wanted to leave AMA); Catheter Tip: Intact Peripheral IV Placement Date: 10/01/21 0236 by 10/01/21 1800 b y 10/01/21; Placement Farzad, Alfredo Guzmán, Time: 0236; RN Pre-existing: Yes (Outside PIV. Placed inhouse for compatible IV tubings); Inserted by?: LST; Size (Gauge): 18 G (for Blood Transfusion); Orientation: Left, Posterior, Medial; Site Prep: ChloraPrep; Local Anesthetic: None; Insertion attempts: 1 (Room NOC RN is aware of new iv insertion); Blood draw with insertion?: no (NO labs collected with iv insertion); Removal Date: 10/01/21; Removal Time: 1800; Removal Reason: Per Protocol (Pt wanted to leave AMA); Catheter Tip: Intact ETT Placement Date: 10/01/21 1024 by Abel 10/01/21 14 39 by Abel 10/01/21; Placement Pooja Noonan, Pooja Noonan, Time: 1024; Placed RETAIL AIDE, LUZMA RETAIL AIDE, PRODUCTION TRAINER By: PRODUCTION TRAINER; Induction Type: Pre-O2, IV; Masking: Easy; ETT Type: ETT; Orientation: Right; Size (mm): 7.5; Depth Secured (cm): 24 cm; Cuffed: Cuffed; Intubation Method: DL; Cormack_Lehane Glottic Grade: Grade 1; Glottic View: Cords Open, Cords Clear; Blade: MAC; Blade Size: 3; Insertion attempts: 1; Difficulty: Atraumatic; Adjunct Equipment: Stylet; Placement Verification: BBSE, Positive EtCO2, auscultation, capnometry; Teeth and Lips Unchanged: Unchanged; Removal Date: 10/01/21; Removal Time: 1439 Indwelling Urethral 10/01/21; 1030; No; 10/01/21 1030 by 2 1420 by Catheter TARAH SPARROW; Tarah Sparrow G eraldanaly Dooley, Indwelling Catheter Soumya, RN RN With Core Temp Probe; 16 Fr.; 1; No Longer Needed Incision/Surgical Site 10/01/21; 1201; No; 10/01/21 1201 by 10/08 1554 by Lda, Leg; Left, Lateral, Andrews, Tarah Discontin ue Upper; 10/17/21; 1554 A, RN documented in this encounter Social History Tobacco [...] encounter Miscellaneous Notes Anesthesia Postprocedure Evaluation - Jonah Kelley DO - 10/01/2021 4:30 PM CST [facility] Anesthesia Post-op Note Patient: Ed J Luna Post-Op Diagnosis: Closed fracture of distal end of left femur, unspecified fracture morphology, initial encounter (hrc) Procedure Performed: Procedure(s): Left - OPEN REDUCTION INTERNAL FIXATION SUPRACONDYLAR DISTAL FEMUR FRACTURE - Wound Class: 1 CLEAN Left - INSERTION INTRAMEDULLARY NAIL SUPRACONDYLAR DISTAL FEMUR FRACTURE - Wound Class: 1 CLEAN Anesthesia Type: General Post-op vital signs: Vitals Value Taken Time BP 98/45 10/01/21 1610 Temp 98.4 ??F (36.9 ??C) 10/01/21 1610 Pulse 72 10/01/21 1619 Resp 10 10/01/21 1619 SpO2 99 % 10/01/21 1619 Vitals shown include unvalidated device data. Pain Score: Presence Of Pain: non-verbal indicators absent Preferred Pain Scale: number (Numeric Rating Pain Scale) Pain Rating (0-10): Rest: 10, other (see comments) (pain stays the same pt resting comfortably no facial grimicing) Post-op assessment: No anesthesia complication. Patient location: PACU Airway Status: Patent Cardiovascular function: Satisfactory Hydration status: Satisfactory PONV: None Level of Consciousness: Awake Fully Participates Postop Assessment: Patient tolerated procedure well. Electronically signed by: Jonah Kelley DO 10/01/2021 4:30 PM T MGR Anesthesia Preprocedure Evaluation - German Henry MD - 10/01/2021 10:02 AM CST [facility] Anesthesia Pre-op Evaluation Procedure: OPEN REDUCTION INTERNAL FIXATION SUPRACONDYLAR DISTAL FEMUR FRACTURE, Left INSERTION INTRAMEDULLARY NAIL SUPRACONDYLAR DISTAL FEMUR FRACTURE, Left HPI: 61 y.o. old male with Closed fracture of distal end of left femur, unspecified fracture morphology, initial encounter (hrc) Allergies Allergen Reactions ??? Ciprofloxacin Unknown Swelling ??? Influenza Virus Vaccine Other, see comments Diarrhea Past Medical History: Diagnosis Date ??? Kidney stones Patient Active Problem List Diagnosis ??? Closed fracture of left distal femur (HRC) Past Surgical History: Procedure Laterality Date ??? ELBOW SURGERY Left 08/18/2017 Left ulnar nerve submusculasr transposition ??? PACEMAKER INSERTION Outpatient Medications as of 10/01/2021 Medication Sig ??? acetaminophen (TYLENOL ARTHRITIS PAIN) 650 MG controlled release tablet Take 650 mg by mouth every 8 hours as needed for Pain. ??? allopurinol (ZYLOPRIM) 300 MG tablet ??? [...] Sennosides (SENOKOT OR) Facility-Administered Medications as of 10/01/2021 Medication Dose Route Frequency ??? 0.9% sodium chloride flush 250 mL 250 mL Intravenous PRN See Admin ??? acetaminophen (TYLENOL) tablet 1,000 mg 1,000 mg Oral TID ??? benzocaine-menthol (CEPACOL) lozenge 1 Lozenge 1 Lozenge Oral Q2H PRN ??? sennosides-docusate sodium (SENOKOT S) 8.6-50 MG per tablet 2 Tablet 2 Tablet Oral BID PRN Or ??? polyethylene glycol (MIRALAX) oral powder 17 g 17 g Oral DAILY PRN Or ??? bisacodyl (DULCOLAX) rectal suppository 10 mg 10 mg Rectal DAILY PRN ??? calcium carbonate (TUMS) chewable tablet 500-1,000 mg 500-1,000 mg Oral QID PRN ??? ceFAZolin in sodium chloride 0.9% (ANCEF) IVPB 2 g 2 g Intravenous Once (Non-Scheduled) ??? glucose (GLUTOSE) oral gel 15 g of glucose 15 g of glucose Oral Q15MIN PRN Or ??? dextrose (D50) injection 25 g 25 g Intravenous Q15MIN PRN Or ??? glucagon rDNA (diagnostic) (GLUCAGEN) injection 1 mg 1 mg Intramuscular Q15MIN PRN ??? [COMPLETED] fentaNYL (SUBLIMAZE) injection 50 mcg 50 mcg Intravenous Once ??? HYDROmorphone (DILAUDID) injection 0.2-0.4 mg 0.2-0.4 mg Intravenous Q2H PRN ??? insulin lispro (HumALOG) injection vial 2-4 Units 2-4 Units Subcutaneous PRN based on Blood Sugar ??? ketorolac (TORADOL) injection 15 mg 15 mg Intravenous Q6H PRN ??? lactated ringers infusion 30 mL/hr Intravenous Continuous ??? lactated ringers infusion Intravenous Continuous ??? methocarbamol (ROBAXIN) tablet 500 mg 500 mg Oral Q6H PRN ??? ondansetron (ZOFRAN) injection 4 mg 4 mg Intravenous Q8H PRN And ??? prochlorperazine (COMPAZINE) injection 10 mg 10 mg Intravenous Q6H PRN And ??? metoclopramide (REGLAN) injection 5 mg 5 mg Intravenous Q6H PRN ??? naloxone (NARCAN) injection 0.2 mg 0.2 mg Intravenous PRN per Parameters ??? oxyCODONE (ROXICODONE) immediate release tablet 5-10 mg 5-10 mg Oral Q4H PRN ??? sennosides-docusate sodium (SENOKOT S) 8.6-50 MG per tablet 1 Tablet 1 Tablet Oral BID ??? sodium chloride 0.9% infusion Intravenous Continuous ??? sodium chloride 0.9% injection 10-60 mL 10-60 mL Intravenous PRN ??? tranexamic acid (CYKLOKAPRON) 1000 mg in sodium chloride 0.9% (10 mg/mL) 100 mL IVPB premix 1,000 mg Intravenous Once Followed by ??? tranexamic acid (CYKLOKAPRON) 1000 mg in sodium chloride 0.9% (10 mg/mL) 100 mL IVPB premix 1,000 mg Intravenous Once Labs: Lab Results Component Value Date/Time SODIUM 136 09/30/2021 07:02 PM K 4.0 09/30/2021 07:02 PM CHLORIDE 104 09/30/2021 07:02 PM BUN 26 09/30/2021 07:02 PM CREATININE 0.78 09/30/2021 07:02 PM GLUCOSE 152 (H) 09/30/2021 07:02 PM Lab Results Component Value Date/Time WBC 8.0 09/30/2021 07:02 PM HGB 6.0 (LL) 09/30/2021 07:02 PM HCT 20.8 (L) 09/30/2021 07:02 PM PLTS 151 09/30/2021 07:02 PM INR (no units) Date Value 09/30/2021 1.1 Blood Bank: ABO (no units) Date Value 09/30/2021 A Antibody Screen Interpretation (no units) Date Value 09/30/2021 Negative EKG: Date of last EK09/30/21 Ecg 12-Lead Routine (MUSE) Result Value Ref Range Ventricular Rate 64 BPM Atrial Rate 64 BPM P-R Interval 448 ms QRS Duration 176 ms QT 466 ms QTc 480 ms R [place] -89 degrees T [place] 68 degrees Physical Exam: BP (!) 140/83 Pulse 68 Temp 99 ??F (37.2 ??C) (Temporal Artery) Resp 13 Wt 82.5 kg (181 lb 14.4 oz) SpO2 97% BMI 24.67 kg/m?? Assessment/Plan: Review of Systems NPO Status: Acceptable. Patient does not have GERD. Patient is not a current smoker. The patient reports alcohol use. Patient denies any recent URI. History of PONV: No. History of motion sickness: No. Patient denies any personal or family history of anesthesia complications (PONV). Exam Mental Status: Alert and oriented. Mallampati score: II (Two). Mouth opening: Normal Thyromental Distance: > 3 finger breadths and Normal Neck Extension: Full Neck Circumference > 40 cm?: No Current airway assessment:Normal Dentition: Age appropriate. Cardiac Exam: Regular rate and rhythm. Respiratory Exam: Breath sounds clear to auscultation Assessment ASA Status: 3 . Plan Anesthesia type: General and ETT Induction: Intravenous and Propofol Maintenance: Balanced Postoperative pain management (PONV): Plan for postoperative opioid use PONV Risk Score Adult: 2 PONV Prophylaxis (planned): Ondansetron and Decadron Anesthetic plan, risks, benefits and alternatives discussed with: Patient. Additional equipment needed: Magnet for Pacemaker H&P Reviewed and Patient examined, no change observed IV access Antibiotics per surgery Electronically signed by: German Henry MD 10/01/2021 10:02 AM T MGR documented in this encounter Plan of Treatment Upcoming Encounters Date Type Specialty Care Team Description 08/04/2022 Appointment Orthopedics Delgado Gottlieb MD [address] [place], [place] [address] (Gavi presley) 10/08/2022 Appointment Orthopedics Delgado Gottlieb MD [address] [place] [phone] (Gavi presley) 05/27/2023 Appointment Chemo Therapy/Infusion Services documented as of this encounter Visit Diagnoses Not on filedocumented in this encounter Administered Medications Inactive Administered Medications - up to 3 most recent administrations Medication Order MAR Action Action Date Dose Rate Site albumin human Given 10/01/2021 12:51 PM EVENT MGR 250 mL (ALBUMINAR,ALBUTEIN) 5 % infusion Intravenous, Starting on Thu10/01/21 at 1251, Until Thu10/01/21 at 1449 ceFAZolin in sodium chloride 0.9% (ANCEF) IVPB Given 0 10/01/2021 10:31 AM EVENT MGR 2 g 2 g 2 g, Intravenous, Administer over 30 Minutes, ONCE (NON-SCHEDULED), Starting on Thu10/01/21 at 0828, For 1 dose, For patient weight less than or equal to 119 kg PRE-OP, Pre-op dexamethasone (DECADRON) injection Given 10/01/2021 10:37 AM EVENT MGR 4 mg Intravenous, Starting on Thu10/01/21 at 1037, Until Thu10/01/21 at 1449 dexmedetomidine 20 mcg/5 mL injection Given 10/01/2021 2:20 PM EVENT MGR 8 mcg Intravenous, Starting on Thu10/01/21 at 1420, Until Thu10/01/21 at 1449 ePHEDrine 5 mg/mL injection Given 10/01/2021 1:38 PM EVENT MGR 5 mg Intravenous, Starting on Thu10/01/21 at 1159, Until Thu10/01/21 at 1449 Given 10/01/2021 12:16 PM EVENT MGR 5 mg Given 10/01/2021 11:59 AM EVENT MGR 5 mg fentaNYL (SUBLIMAZE) injection Given 10/01/2021 2:19 PM EVENT MGR 0.5 mL Intravenous, Starting on Thu10/01/21 at 1017, Until Thu10/01/21 at 1449 Given 10/01/2021 2:17 PM EVENT MGR 0.5 mL Given 10/01/2021 11:17 AM EVENT MGR 1 mL lactated ringers infusion Started 10/01/2021 1:51 PM EVENT MGR Intravenous, at 30 mL/hr, CONTINUOUS, Starting on Thu10/01/21 at 0845, If IV started. Continuous., Pre-op Restarted 10/01/2021 1:03 PM EVENT MGR Restarted 10/01/2021 10:17 AM EVENT MGR lidocaine PF (XYLOCAINE) 1 % injection Given 10/01/2021 10:23 AM EVENT MGR 50 mg Intravenous, Starting on Thu10/01/21 at 1023 midazolam (VERSED) injection Given 10/01/2021 10:17 AM EVENT MGR 2 mg Intravenous, Starting on Thu10/01/21 at 1017, Until Thu10/01/21 at 1449 ondansetron (ZOFRAN) injection Given 10/01/2021 1:56 PM EVENT MGR 4 mg Intravenous, Starting on Thu10/01/21 at 1356, Until Thu10/01/21 at 1449 phenylephrine-NaCl 0.9% (KANA-SYNEPHRINE) Given 10/01/2021 1:38 P M EVENT MGR 100 mcg injection Intravenous, Starting on Thu10/01/21 at 1033, Until Thu10/01/21 at 1449 Given 10/01/2021 1:27 PM EVENT MGR 100 mcg Given 10/01/2021 1:14 PM EVENT MGR 100 mcg propofol (aka diPRIvan) injection Given 10/01/2021 10:23 AM EVENT MGR 100 mg Intravenous, Starting on Thu10/01/21 at 1023 rocuronium (ZEMURON) injection Given 10/01/2021 1:50 PM EVENT MGR 10 mg Intravenous, Starting on Thu10/01/21 at 1029, Until Thu10/01/21 at 1449 Given 10/01/2021 1:17 PM EVENT MGR 20 mg Given 10/01/2021 12:33 PM EVENT MGR 20 mg succinylcholine (QUELICIN) injection Given 10/01/2021 10:23 AM EVENT MGR 80 mg Intravenous, Starting on Thu10/01/21 at 1023, Until Thu10/01/21 at 1449 sugammadex (BRIDION) injection Given 10/01/2021 2:35 PM EVENT MGR 200 mg Intravenous, Starting on Thu10/01/21 at 1435, Until Thu10/01/21 at 1449 tranexamic acid (CYKLOKAPRON) 1000 mg in Given 10/01/2021 10 :36 AM EVENT MGR 1,000 mg sodium chloride 0.9% (10 mg/mL) 100 mL IVPB premix 1,000 mg, Intravenous, ONCE, On Thu10/01/21 at 0900, For 1 dose, Administer once at incision and once at start of closure., Pre-op tranexamic acid (CYKLOKAPRON) 1000 mg in Given 10/01/2021 1:59 P M EVENT MGR 1,000 mg sodium chloride 0.9% (10 mg/mL) 100 mL IVPB premix 1,000 mg, Intravenous, ONCE, On Thu10/01/21 at 0900, For 1 dose, Administer once at incision and once at start of closure., Pre-op documented in this encounter Care Teams Supervisor Carpenters Relationship Specialty Start Date End Date Cintia Cobb MD PCP - General Family Practice 09/30/21 documented as of this encounter
--- OUTSIDE RECORDS SUMMARY | 2022-07-29 11:08 | XMS_ITS | Encounter Summary ---
:1960 Author Organization [employer] Address [address] [place] [address] Care Team Providers Name Role Phone Kevin Cobb MD Primary Care Provider [phone] Reason for Visit Reason Comments FRACTURE Auth/Cert [...] Expiration Date Visits Requ ested Visits Authorized [id number] 1 1 Encounter Details Date Type Department Care Team Description 10/01/2021 Surgery RH Operating Room Martha Gottlieb, OPEN REDUCTION INTERNAL 640 John Salas MD [place] [address] DISTAL FEMUR FRACTURE [phone] [place], [place] [id number] Social History Tobacco Use Types Packs/Day Years [...] Sign Reading Time Taken Comments Blood Pressure 98/45 10/01/2021 4:10 PM LAST INSERTER Pulse 66 10/01/2021 4:10 PM LAST INSERTER Temperature 36.9 ??C (98.4 ??F) 10/01/2021 4:10 PM LAST INSERTER Respiratory Rate 12 10/01/2021 4:10 PM LAST INSERTER Oxygen Saturation 100% 10/01/2021 4:10 PM LAST INSERTER Inhaled Oxygen Concentration - - Weight 82.5 kg (181 lb 14.4 oz) 10/01/2021 2:00 AM LAST INSERTER Height - - Body Mass Index 24.67 10/01/2021 2:00 AM LAST INSERTER documented in this encounter Discharge Summaries Suzie Daigle PA-C - 10/02/2021 8:50 AM CST [facility] Orthopedic Discharge Note Patient Name: Noemí Luna [...] transposition ??? PACEMAKER INSERTION Brief History : Ed Luna is a 61 year old male [...] Pain., Disp-5 Tablet, R-0, Q4H PRN Starting 10/02/2021, Oral, E-Prescribing CONTINUE these medications which have [...] Date: 10/16/2021 Time: 10:20a Provider: Dr. Gottlieb [facility]: Orthopaedic & Sports Medicine; ([facility]) [phone]; [address] [place] [address] References: Specialty Connection Sari Aneesh Consult Page Question: Reason for visit? Answer: s/p ORIF IMN L femur Discharge Practitioner Electronic Signature Comments: Suzie Daigle PA-C 10/02/2021 8:43 AM These orders have been electronically signed. (In accordance with [place] Fed. Regulation Set, Fed A0232 - Types of Authentication) Weight bearing as tolerated Comments: You may resume normal weight bearing on the affected limb(s) as tolerated. Discharge Diet (see comments) Comments: Diabetic Follow Up: The patient will follow up with Martha Gottlieb MD in 2 weeks. At follow up, xrays should include L femur. This note completed by: Suzie Daigle PA-C INSERTER documented in this encounter Discharge Instructions Discharge Aisha Lund RN - 10/03/2021 8:15 AM CST Clinic Phone Numbers ??? [facility] Orthopaedic Clinic: [phone] ??? [facility] Orthopaedic Center: [phone] Labs and Warfarin (Coumadin) Information No data found. This information has been sent to the following clinic:{COUMADIN FAX DESTINATION:[id number]} [facility] ??? Always wash your hands [...] density, or have had a fracture, call [phone] to schedule an appointment. INSERTER documented in this encounter Medications at Time [...] 25G X 5/8 3 CYANOCOBALAMIN ML INJECTION diazePAM (VALIUM) 2 [...] Thompson MD - 10/03/2021 5:27 AM CST [facility] Orthopedic Surgery Progress Note Subjective: Patient sleeping [...] 09/30/2021 6.0 (LL) 09/30/2021 5.8 (LL) A/P: Ed Jim Luna is a 61 y.o. [...] Edward Thompson MD Orthopedic Surgery, PGY-2 Pager: [phone] INSERTER Kay Mcadams PA-C - 10/02/2021 2:52 PM [...] Kay Mcadams PA-C Department of Hospital Medicine INSERTER Nathen Burger MD - 10/02/2021 10:25 AM CST [facility] Orthopedic Surgery Note: The patient's hemoglobin returned [...] Will continue to monitor. Nathen Burger MD INSERTER Nathen Burger MD - 10/02/2021 5:07 AM CST [facility] Orthopedic Surgery Progress Note Subjective: Last evening [...] 09/30/2021 6.0 (LL) 09/30/2021 5.8 (LL) A/P: Ed Jim Luna is a 61 y.o. [...] fluids and progress as tolerated. - F/U: Mratha Gottlieb MD in 2 weeks with left femur x-rays needed. Patient discussed with Dr. Gottlieb who also evaluated the patient. Nathen Burger MD, PGY-1 [facility] Orthopedic Surgery Pager: [phone] 10/02/2021 5:07 AM Anika Neal RN - 10/01/2021 4:21 PM CST I completed a full assessment and assessments as ordered and per policy on this patient during my work shift. Reassessments completed during my work shift are unchanged unless documented. INSERTER Kay Mcadams PA-C - 10/01/2021 4:00 PM CST Brief HM Note Unable to see patient today as he has been in the OR. Recommend repeat Hgb and consideration of IV iron if pt agreeable. Medicine will f/u tomorrow. Kay Mcadams PA-C Department of [facility] Medicine Josep Anderson MD - 10/01/2021 5:40 AM CST [facility] Orthopedic Surgery Progress Note Subjective: Patient receiving [...] (LL) 09/30/2021 5.8 (LL) Imaging: Complete A/P: Ed Jim Lnua is a 61 y.o. male with left [...] days. F/U: TBD Josep Cervantes MD, PGY-2 [facility] Orthopedic Surgery Pager: [phone] 10/01/2021 5:41 AM INSERTER documented in this encounter Procedure Notes Suzie Daigle PA-C - 10/01/2021 2:04 PM CST [facility] Brief Operative Progress Note Surgery Date: 10/01/2021 Surgeon(s) and Role: * Martha Gottlieb MD - Primary * Suzie Daigle PA-C - Assisting * Keyla Gilbert APRN, KORIN - Assisting * Delmer Romano MD - [...] left femur x-rays needed. Suzie Daigle PA-C INSERTER Martha Gottlieb MD - 10/01/2021 12:00 AM CST NAME: NOEMÍ LUNA CSN: [id number] OPERATIVE REPORT DATE OF SURGERY: 10/01/2021 : [...] after the injury. He was brought to [facility] emergency department, where he was found to have a comminuted and displaced left supracondylar distal femur fracture. This was a closed injury, and he was neurovascularly intact. Of note, the patient had sustained an ipsilateral left intertrochanteric femur fracture in August of 2019for which he underwent short intramedullary nailing in [place], [place]. Prior to this most recent injury, the patient was ambulatory with a cane. 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 The IT band laterally was closed with #1 Vicryl [id number] sutures. All skin incisions were then closed with 2-0 Vicryl buried deepdermal sutures and chapis. A sterile compressive dressing was then applied and finally the leg was wrapped in a double length 6-inch Carmita wrap. The patient was transferred back to his hospital bed, andthe Munoz catheter was removed. He was awoken from anesthesia without incident and taken to the [facility] room in stable condition. COMPLICATIONS: None. ESTIMATED [...] of the procedure. MARTHA GOTTLIEB MD RDW/AQS /[id number] INSERTER documented in this encounter Consult Notes Jaja Amor PA-C - 10/02/2021 10:40 AM CSTAssociated Order(s): ENDOCRINE CONSULT See consult note 10/01. Will continue to follow peripherally x24 hours. Glucose remains stable. 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 Keyla Gilbert APRN, SPAR FINISHER INSERTER Ted Burdick MD - 09/30/2021 9:29 PM CST [facility] Pre-operative Exam Patient Name: Noemí Luna Date of : 1960 Date of Service: 09/30/2021 Primary Practitioner: Kevin Valentin MD, Assessment and Plan: Ed Jim Luna is a 61 y.o. old male is undergoing a pre-operative medical evaluation. Pre-operative cardiac evaluation: This patient???s predictive cardiac risk is: 0.2 % Risk of myocardial infarction or cardiac arrest, intraoperatively or up to 30 days post-op per JACKSON. 3.9 % 30-day risk of , KS, or cardiac arrest per RCRI. Neither of [...] extensive explanations of risks of anemia pre-operatively (KS, , etc) and screening for infections of [...] Ordered EKG to ensure paced appropriately. From [facility] 2017, based on pooled data from 5 [...] Didn't lose consciousness. Didn't hit head. 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 Worried that he will lose everything if [...] surgery on 10/01/[address] Peck at [facility]. Pre-operative Screening Questions: Tightening or pressure in [...] Procedure: ESOPHAGOGASTRODUODENOSCOPY; Surgeon: Rene Carlson M.D.; Location: [facility] GI LAB?? Medical devices from this surgery are in the Medical Devices section.?? CARDIAC PACEMAKER PLACEMENT ? OPEN REDUCTION INTERNAL FIXATION FEMUR 08/13/2019 Hip/Left Procedure: OPEN REDUCTION INTERNAL FIXATION LEFT FEMUR; Surgeon: John Norman M.D.; Location: [facility] OR?? Medical devices from this surgery are [...] TAMSULOSIN 0.4MG CAP 09/19/2021 30 60 Each CARISSA VALENTIN,KEVIN S Juan Cmunity/Speci... ALLOPURINOL 300MG TAB 08/20/2021 30 30 Each MAGUI,KEVIN S Juan Cmunity/Speci... FUROSEMIDE 40 MG TABLET 08/20/2021 30 30 Each MAGUI,KEVIN S Juan Cmunity/Speci... OMEPRAZOLE 20MG CAP 08/20/2021 30 30 Each MAGUI,KEVIN Juan Cmunity/Speci... TAMSULOSIN 0.4MG CAP 08/20/2021 30 60 Each CARISSA VALENTIN,KEVIN S Juan Cmunity/Speci... FINASTERIDE 5MG TAB 08/14/2021 13 13 Each MAGUI,KEVIN Juan Cmunity/Speci... HYDROCODON-APAP 5-325 07/27/2021 2 8 Each CHUNG GARZA Juan Cmunity/Speci... ALLOPURINOL 300 MG TABS 07/19/2021 30 30 Each MAGUI,KEVIN S Juan Cmunity/Speci... FUROSEMIDE 40 MG TABLET 07/19/2021 30 30 Each MAGUI,KEVIN S Juan Cmunity/Speci... TAMSULOSIN 0.4MG CAP 07/19/2021 30 60 Each CARISSA VALENTIN,KEVIN S Juan Cmunity/Speci... TRAZODONE HCL 50 MG TABS 07/15/2021 30 60 Each MAGUI,KEVIN S Juan Cmunity/Speci... Allergies Allergies Allergen Reactions ??? [...] conditions: No # Acute coronary syndrome # KS < one month ago # decompensated heart [...] CC: consult --- End of Report --- INSERTER Martha Gottlieb MD - 09/30/2021 6:15 PM [...] obstruction who [facility] with [facility] distal thigh pain after [...] femur fracture by Dr. John Norman in [place], [place]. Location: Left distal thigh Time of Onset: today Severity: 04/16 Quality: sharp Radiation: none Exacerbating: movement, WB Alleviating: rest Associated symptoms: none Patient has been NPO since 1999 on 09/29/21. Patient lives with his and dog. Patient ambulates with a cane. 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 If there is no reply, if it is a weekend, or if it is after hours, then please page the orthopedic surgery service pager at [phone] Attestation: I saw and evaluated this patient and we have discussed the plan of care with the resident. I have personally reviewed the patient's imaging and laboratory data. I agree with the findings as detailed inthe resident's note. Martha Gottlieb MD [employer] Agent [facility] Department of Orthopaedic Surgery [facility] INSERTER documented in this encounter ED Notes Jonah Nova MD - 09/30/2021 6:14 PM CST [facility] Emergency Department Attending Supervision Note Pt Name: Noemí Luna : 1960 I performed the huynh [...] and screen Admit Author: Jonah Nova MD INSERTER Francisca Harvey MD - 09/30/2021 5:45 PM CST [facility] Emergency Medicine Visit Note Chief Complaint: FRACTURE [...] his knee and was brought to the [place] ED for evaluation. There, was found to [...] performed and is otherwise negative. Triage Vitals [09/30/215] Temp Temp src Pulse 76 Resp BP [...] [id number] BP: 131/84 Initial vitals wnl. [KS] 182 Gave a dose of fentanyl for pain control of leg fracture and headache. [KS] 1826 Spoke to orthopedics and placed consult. They would like to repeat pelvis, left hip, left femur, and left knee imaging as images from [facility] of the left knee are not available. CBC and BMP availablevia Care Everywhere, will repeat hgb and obtain T&S, INR/PT, and PTT in preparation for surgery per ortho. [KS] 1950 Hemoglobin, Blood(!!) Hemoglobin low at 5.8-6, lower [...] femur, unspecified fracture morphology, initial encounter (HRC) INSERTER Juan Miguel Rios MD - 09/30/2021 4:01 PM CST Referred from [facility] by MD for L femur fx. Background/plan: Slipped and fell this morning. L distal femur fx. CMS intact. No other hinjury. Noton anticoag. VSS Covid negative. Needs ortho Means of arrival: EMS Call back: none INSERTER documented in this encounter Plan of Treatment Upcoming Encounters Date Type Specialty Care Team Description 08/04/2022 Appointment Orthopedics Martha Gottlieb MD [address] [place], [place] [address] (Wo rk) 10/08/2022 Appointment Orthopedics Martha Gottlieb MD [address] [place], [place] [address] (Wo rk) 05/27/2023 Appointment Chemo Therapy/Infusion Services Pending Results Name Type Priority Associated Diagnoses Date/Ti me Transfuse RBC Nursing Transfusion Routine 022 3:23 AM LAST INSERTER Scheduled Referrals Name Type Priority Associated Diagnoses [...] 10/02/2021 10:21 Resu lts for this AM LAST INSERTER procedure are i n the results section. VITAMIN D 25-HYDROXY, Routine 10/02/2021 8:22 Res ults for this TOTAL AM LAST INSERTER procedure are i n the results section. INTACT PTH Routine 10/02/2021 8:22 Results for this AM LAST INSERTER procedure are i n the results section. COMP METABOLIC PANEL Routine 10/02/2021 8:22 Resu lts for this AM LAST INSERTER procedure are i n the results section. TSH, SENSITIVE Routine 10/02/2021 8:22 Results fo r this AM LAST INSERTER procedure are i n the results section. COMPLETE BLOOD COUNT-NO Routine 10/02/2021 8:22 R esults for this DIFF AM LAST INSERTER procedure are i n the results section. GLUCOSE, WHOLE BLOOD POCT Routine 10/01/2021 3:00 Results for this PM LAST INSERTER procedure are i n the results section. XR C-ARM 3.5-4 HOURS Routine 10/01/2021 2:11 Resu lts for this PM LAST INSERTER procedure are i n the results section. HEMOGLOBIN, MEASURED POCT Routine 10/01/2021 10:52 Results for this AM LAST INSERTER procedure are i n the results section. GLUCOSE, WHOLE BLOOD POCT Routine 10/01/2021 10:48 Results for this AM LAST INSERTER procedure are i n the results section. INSERTION INTRAMEDULLARY 10/01/2021 9:59 Closed fractu re of NAIL FEMUR AM LAST INSERTER distal end of left femur, unspecified fracture morphology, initial encounter (HRC) OPEN REDUCTION INTERNAL 10/01/2021 9:59 Closed fractur e of FIXATION DISTAL FEMUR AM LAST INSERTER distal end of left FRACTURE femur, unspecified fracture morphology, initial encounter (HRC) GLUCOSE, WHOLE BLOOD POCT Routine 10/01/2021 9:16 Results for this AM LAST INSERTER procedure are i n the results section. ECG 12-LEAD ROUTINE(LAB Routine 10/01/2021 6:20 R esults for this PERFORM) AM LAST INSERTER procedure are i n the results section. [id number] ELECTROCARDIOGRAM STAT 10/01/2021 6:14 R esults for this TRACING AM LAST INSERTER procedure are i n the results section. IV INSERTION(LAB TO STAT 10/01/2021 2:34 Resul ts for this PERFORM) AM LAST INSERTER procedure are i n the results section. PREP RBC LR Routine 09/30/2021 11:01 Results for this PM LAST INSERTER procedure are i n the results section. XR PELVIS AP W AP/LAT HIP STAT 09/30/2021 7:32 Results for this LT PM LAST INSERTER procedure are i n the results section. XR FEMUR LT 2 VIEWS LOWER STAT 09/30/2021 7:32 Results for this AP/LAT PM LAST INSERTER procedure are i n the results section. XR KNEE LT 2 VIEWS STAT 09/30/2021 7:32 Result s for this PM LAST INSERTER procedure are i n the results section. CBC AND DIFFERENTIAL Routine 09/30/2021 7:02 Resu lts for this PANEL PM LAST INSERTER procedure are i n the results section. BT SECOND DRAW Routine 09/30/2021 7:02 Results fo r this PM LAST INSERTER procedure are i n the results section. COMPLETE BLOOD Routine 09/30/2021 7:02 Results fo r this COUNT-W/DIFF PM LAST INSERTER procedure are i n the results section. BASIC METABOLIC PANEL Routine 09/30/2021 7:02 Res ults for this PM LAST INSERTER procedure are i n the results section. DIFFERENTIAL Routine 09/30/2021 7:02 Results for this PM LAST INSERTER procedure are i n the results section. FERRITIN Add-On 09/30/2021 7:02 Results for this PM LAST INSERTER procedure are i n the results section. IRON PROFILE Add-On 09/30/2021 7:02 Results for this (IRON,TIBC,%SAT.(CALC)) PM LAST INSERTER proc edure are in the results section. TYPE AND SCREEN STAT 09/30/2021 6:27 Results f or this PM LAST INSERTER procedure are i n the results section. ANTIBODY SCREEN STAT 09/30/2021 6:27 Results f or this PM LAST INSERTER procedure are i n the results section. BLOOD TYPE STAT 09/30/2021 6:27 Results for this PM LAST INSERTER procedure are i n the results section. PATH REVIEW (LAB USE Routine 09/30/2021 6:27 Resu lts for this ONLY) PM LAST INSERTER procedure are i n the results section. APTT (ACTIVATED PARTIAL Routine 09/30/2021 6:27 R esults for this THROMBOPLASTIN TIME PM LAST INSERTER procedur e are in the results section. HEMOGLOBIN, BLOOD STAT 09/30/2021 6:27 Results for this PM LAST INSERTER procedure are i n the results section. INR/PROTIME Routine 09/30/2021 6:27 Results for this PM LAST INSERTER procedure are i n the results section. documented in this encounter Results XR Femur Lt 2 Views (10/02/2021 10:21 AM LAST INSERTER) Anatomical Region Laterality Modality Lower Extremity, Leg, Thigh Computed Rad iography Specimen (Source) Anatomical Collection Method Collection Time Re ceived Time Location / / Volume Laterality 10/02/2021 10:21 AM LAST INSERTER Narrative 10/02/2021 10:37 AM LAST INSERTER EXAM: XR FEMUR LT 2 VIEWS LOCATION: [...] EXAM: XR FEMUR LT 2 VIEWS LOCATION: [facility] DATE/TIME: 10/02/2021 10:21 AM INDICATION: S/p [...] thigh. Osteopenia of the visualized bones. Suzie LOUIS GD Vitamin D 25 HYDROXY, TOTAL (10/02/2021 8:22 AM LAST INSERTER) [facility] gist Method Time Signature Vitamin D, 58 30 - 80 10/02/2021 [facility] 25-OH, Total ng/mL 12:54 PM LAST INSERTER [facility] Specimen Anatomical Collection Method / Collection Time Recei shahid Time (Source) Location / Volume Laterality Blood Venipuncture 10/02/2021 8:22 10/02/2021 8 :32 Butterfly / Unknown AM LAST INSERTER AM LAST INSERTER Keyla Gilbert APRN, CNP LAB_1 Performing Organization Address City/State/ZIP Code Phon e Number [facility] [address] [address] TSH (10/02/2021 8:22 AM LAST INSERTER) athologist Signature TSH, Sensitive 0.31 0.30 - 10/02/2021 [facility] 4.50 9:37 AM LAST INSERTER [facility] uIU/mL Specimen Anatomical Collection Method / Collection Time Recei shahid Time (Source) Location / Volume Laterality Blood Venipuncture 10/02/2021 8:22 10/02/2021 8 :33 Butterfly / Unknown AM LAST INSERTER AM LAST INSERTER Keyla Hintonelliottkali TOBACCO FLAVORER, SPAR FINISHER LAB_1 Performing Organization Address City/State/ZIP Code Phon e Number [facility] [address] [place] [address] (ABNORMAL) Comp Metabolic Panel (10/02/2021 8:22 AM LAST INSERTER) Analysis Performed At Patho logist Time Signature Sodium 137 136 - 145 10/02/2021 [facility] mmol/L 9:19 AM [facility] Potassium 4.2 3.5 - 5.1 10/02/2021 [facility] mmol/L 9:19 AM [facility] Chloride 108 98 - 109 10/02/2021 [facility] mmol/L 9:19 AM [facility] CO2 23 20 - 29 10/02/2021 [facility] mmol/L 9:19 AM [facility] Anion Gap 6 (L) 7 - 16 10/02/2021 [facility] mmol/L 9:19 AM [facility] Calcium 8.4 8.4 - 10.4 10/02/2021 [facility] mg/dL 9:19 AM [facility] BUN 30 (H) 7 - 26 10/02/2021 [facility] mg/dL 9:19 AM [facility] Creatinine 0.96 0.73 - 10/02/2021 [facility] 1.18 mg/dL 9:19 AM [facility] GFR, Estimated >60 >60 10/02/2021 [facility] mL/min/1.7 9:19 AM [facility] 3m2 Alkaline 42 40 - 150 10/02/2021 [facility] Phosphatase U/L 9:19 AM [facility] AST (SGOT) 12 10 - 40 10/02/2021 [facility] U/L 9:19 AM [facility] ALT (SGPT) 13 0 - 55 U/L 10/02/2021 [facility] 9:19 AM [facility] Bilirubin, Total 0.2 0.2 - 1.2 10/02/2021 [facility] mg/dL 9:19 AM [facility] Protein, Total 5.5 (L) 6.4 - 8.3 10/02/2021 [facility] g/dL 9:19 AM [facility] Albumin 3.1 (L) 3.5 - 5.0 10/02/2021 [facility] g/dL 9:19 AM [facility] Glucose 116 (H) 70 - 100 10/02/2021 [facility] mg/dL 9:19 AM [facility] Comment: The given reference range is fo r the fasting state. Non-fasting reference range for glucose is 70 - 180 mg/dL. Specimen Anatomical Collection Method / Collection Time Recei shahid Time (Source) Location / Volume Laterality Blood Venipuncture 10/02/2021 8:22 10/02/2021 8 :33 Butterfly / Unknown AM LAST INSERTER AM LAST INSERTER Keyla Gilbert APRN, CNP LAB_1 Performing Organization Address City/State/ZIP Code Phon e Number [address] [address] (ABNORMAL) Complete Blood Count-No Diff (10/02/2021 8:22 AM LAST INSERTER) Analysis Performed At Patho logist Time Signature WBC 7.5 3.5 - 10.5 10/02/2021 [facility] x10(9)/L 9:19 AM [facility] RBC 2.41 (L) 4.32 - 10/02/2021 [facility] 5.72 9:19 AM [facility] x10(12)/L Hemoglobin 5.6 (LL) 13.5 - 10/02/2021 [facility] 17.5 g/dL 9:19 AM [facility] HCT 19.3 (L) 38.8 - 10/02/2021 [facility] 50.0 % 9:19 AM [facility] MCV 80.1 80.0 - 10/02/2021 [facility] 100.0 fL 9:19 AM [facility] MCH 23.2 (L) 27.6 - 10/02/2021 [facility] 33.3 pg 9:19 AM [facility] MCHC 29.0 (L) 31.5 - 10/02/2021 [facility] 35.2 g/dL 9:19 AM [facility] RDW 17.2 (H) 11.9 - 10/02/2021 [facility] 15.5 % 9:19 AM [facility] Platelets 130 (L) 150 - 450 10/02/2021 [facility] x10(9)/L 9:19 AM [facility] Automated NRBC 0 <=0 /100 10/02/2021 [facility] WBC 9:19 AM [facility] Specimen Anatomical Collection Method / Collection Time Recei shahid Time (Source) Location / Volume Laterality Blood Venipuncture 10/02/2021 8:22 10/02/2021 8 :33 Butterfly / Unknown AM LAST INSERTER AM LAST INSERTER Keyla Gilbert APRN, CNP LAB_1 Performing Organization Address [facility]/ZIP [facility] Phon e Number [address] [address] Intact PTH (10/02/2021 8:22 AM LAST INSERTER) P athologist Signature Intact PTH 96 10 - 100 10/02/2021 [facility] pg/mL 9:37 AM LAST INSERTER HOSPITAL Specimen Anatomical Collection Method / Collection Time Recei shahid Time (Source) Location / Volume Laterality Blood Venipuncture 10/02/2021 8:22 10/02/2021 8 :33 Butterfly / Unknown AM LAST INSERTER AM LAST INSERTER Keyla Gilbert APRN, CNP LAB_1 Performing Organization Address [facility]/ZIP [facility] Phon e Number [address] [address] Glucose, Whole Blood POCT (10/01/2021 3:00 PM LAST INSERTER) Patholo gist Method Time Signature Glucose, Whole 166 70 - 180 10/01/2021 [facility] Blood mg/dL 3:01 PM LAST INSERTER HOSPITAL POCT Comment 1 MD Notified 10/01/2021 [facility] 3:01 PM LAST INSERTER [facility] Performing R[facility]AB PACU 10/01/2021 [facility] Location 3:01 PM [facility] [facility] Specimen Anatomical Collection Method Collection Time Receive d Time (Source) Location / / Volume Laterality Blood 10/01/2021 3:00 PM 3:01 LAST INSERTER PM LAST INSERTER Martha Gottlieb MD LAB_1 Performing Organization Address [facility]/ZIP [facility] Phon e Number [address] [address] XR C-Arm 3.5-4 Hours (10/01/2021 2:11 PM LAST INSERTER) Anatomical Region Laterality Modality X-Ray Angiography Specimen (Source) Anatomical Location Collection Method / Collectio n Time Received Time / Laterality Volume Narrative 10/01/2021 2:12 PM LAST INSERTER Fluoroscopy provided by a resident physician in radiology. Exact fluoroscopy time is documented in end of exam information in EPIC Martha Gottlieb MD RAD GD (ABNORMAL) Hemoglobin, Measured POCT (10/01/2021 10:52 AM LAST INSERTER) Analysis Performed At Patho logist Time Signature Hemoglobin 8.5 (L) 13.5 - 10/03/2021 [facility] 17.5 g/dL 7:17 AM [facility] Performing RCLAB OR 10/03/2021 [facility] Location 7:17 AM [facility] Specimen Anatomical Collection Method Collection Time Receive d Time (Source) Location / / Volume Laterality Blood 10/01/2021 10:52 10/03/2021 7:17 AM LAST INSERTER AM LAST INSERTER Martha Gottlieb MD LAB_1 Performing Organization Address City/[facility]/ZIP Code Phon e Number [address] [address] Glucose, Whole Blood POCT (10/01/2021 10:48 AM LAST INSERTER) [facility] gist Method Time Signature Glucose, Whole 103 70 - 180 10/01/2021 [facility] Blood mg/dL 10:50 AM [facility] POCT Comment 1 No Action 10/01/2021 [facility] Required 10:50 AM [facility] Performing RCLAB OR 10/01/2021 [facility] Location 10:50 AM [facility] Specimen Anatomical Collection Method Collection Time Receive d Time (Source) Location / / Volume Laterality Blood 10/01/2021 10:48 10/01/2021 AM LAST INSERTER 10:50 AM LAST INSERTER Martha Gottlieb MD LAB_1 Performing Organization Address [facility]/ZIP Code Phon e Number [address] [address] Glucose, Whole Blood POCT (10/01/2021 9:16 AM LAST INSERTER) [facility] gist Method Time Signature Glucose, Whole 106 70 - 180 10/01/2021 [facility] Blood mg/dL 9:17 AM [facility] Performing RCLAB SDS 10/01/2021 [facility] Location 9:17 AM [facility] Specimen Anatomical Collection Method Collection Time Receive d Time (Source) Location / / Volume Laterality Blood 10/01/2021 9:16 AM 9:17 LAST INSERTER AM LAST INSERTER Martha Gottlieb MD LAB_1 Performing Organization Address City/[facility]/ZIP Code Phon e Number [address] [address] Transfuse RBC (10/01/2021 8:38 AM LAST INSERTER) Josep Peck MD ET NURSING BLOOD ADMIN ECG 12-Lead Routine (Lab perform) (10/01/2021 6:20 AM LAST INSERTER) athologist Signature EKG Completed 10/01/2021 [facility] 11:02 AM [facility] Specimen Anatomical Collection Method Collection Time Receive d Time (Source) Location / / Volume Laterality Other Specimen Non-blood 10/01/2021 6:20 AM 022 9:57 Type Collection / LAST INSERTER AM LAST INSERTER Unknown Óscar Simms DO LAB_1 Performing Organization Address City/State/ZIP Code Phon e Number [facility] [address] [place] [address] Ecg 12-Lead Routine (MUSE) (10/01/2021 6:14 AM LAST INSERTER) athologist Signature Ventricular Rate 64 BPM MUSE [facility] Atrial Rate 64 BPM [facility] P-R Interval 448 ms [facility] QRS Duration 176 ms M[facility] QT 466 ms M[facility] QTc 480 ms [facility] R Luning -89 degrees MUSE GHP T Luning 68 degrees MUSE [facility] Specimen (Source) Anatomical Collection Method Collection Time Re ceived Time Location / / Volume Laterality 10/01/2021 6:14 AM LAST INSERTER Narrative MUSE [facility] - 10/01/2021 2:40 PM LAST INSERTER Atrial-sensed ventricular-paced rhythm with prolonged AV conduction Abnormal ECG No previous ECGs available Confirmed by Pancho Dangelo ([id number]) on 10/01/19 2:40:30 PM Procedure Note Pancho Dangelo MD - 10/01/2021 Atrial-sensed ventricular-paced rhythm w ith prolonged AV conduction Abnormal ECG No previous ECGs available Confirmed by Pancho Dangelo ([id number]) on 10/01/19 2:40:30 PM Óscar Simms DO EKG Performing Organization Address City/[facility]/ZIP Code Phon e Number [facility] [address] [place] [address] IV Insertion, LST Perform (10/01/2021 2:34 AM LAST INSERTER) athologist Signature IV INSERTION, Done 10/01/2021 [facility] LST PERFORM 5:03 AM LAST INSERTER HOSPITAL (LAB) Specimen Anatomical Collection Method / Collection Time Recei shahid Time (Source) Location / Volume Laterality Other Specimen Venipuncture 10/01/2021 2:34 10/01/2021 3:20 Type Butterfly / Unknown AM LAST INSERTER AM LAST INSERTER Josep Peck MD LAB_1 Performing Organization Address [facility]/ZIP [facility] Phon e Number [address] [address] Prep RBC: , 2 Units (09/30/2021 11:01 PM LAST INSERTER) Component Value Ref Test Analysis Performed At [facility] Range Method Time Signature BLOOD PRODUCT [id number] [facility] CODE BLOOD BANK BLOOD UNIT NUMBER [id number] [facility] S BLOOD BANK CROSSMATCH Compatible [facility] INTERPRETATION BLOOD BANK BLOOD DISPENSE Transfused [facility] STATUS BLOOD BANK Unit Expiration [facility] Date BLOOD BANK UNIT BT BARCODE 6200 [facility] BLOOD [facility] PRODUCT VOL ML 400 [facility] BLOOD [facility] CODING SYSTEM ISBT [facility] BLOOD [facility] PRODUCT RBC LR [facility] BLOOD [facility] BLOOD PRODUCT [id number] [facility] CODE BLOOD BANK BLOOD UNIT NUMBER [id number] [facility] BLOOD BANK CROSSMATCH Compatible [facility] [...] / Volume Laterality Blood 09/30/2021 11:01 PM LAST INSERTER Josep Peck MD LAB_BLOOD PRODUCTS Performing Organization Address City/[facility] Phon e Number [facility] BLOOD BANK [address] [place] [address] XR Femur Lt 2 Views Lower AP/Lat (09/30/2021 7:32 PM LAST INSERTER) Anatomical Region Laterality Modality Lower Extremity, Leg, Thigh Computed Rad iography Specimen (Source) Anatomical Collection Method Collection Time Re ceived Time Location / / Volume Laterality 09/30/2021 7:32 PM LAST INSERTER Narrative 09/30/2021 7:41 PM LAST INSERTER EXAM: XR FEMUR LT 2 VIEWS LOWER AP/LAT LOCATION: [facility] DATE/TIME: 09/30/2021 7:32 PM INDICATION: [...] Knee Lt 2 Views (09/30/2021 7:32 PM LAST INSERTER) Anatomical Region Laterality Modality Lower Extremity, Knee Computed Radiograp hy Specimen (Source) Anatomical Collection Method Collection Time Re ceived Time Location / / Volume Laterality 09/30/2021 7:32 PM LAST INSERTER Narrative 09/30/2021 7:38 PM LAST INSERTER EXAM: XR KNEE LT 2 VIEWS LOCATION: [...] W AP/Lat Hip Lt (09/30/2021 7:32 PM LAST INSERTER) Anatomical Region Laterality Modality Pelvis, Hip Computed Radiography Specimen (Source) Anatomical Collection Method Collection Time Re ceived Time Location / / Volume Laterality 09/30/2021 7:32 PM LAST INSERTER Narrative 09/30/2021 7:41 PM LAST INSERTER EXAM: XR PELVIS AP W AP/LAT HIP LT LOCATION: [facility]OSPITAL DATE/TIME: 09/30/2021 7:32 PM INDICATION: [...] PELVIS AP W AP/LAT HIP LT LOCATION: [facility] DATE/TIME: 09/30/2021 7:32 PM INDICATION: Left hip [...] RAD GD (ABNORMAL) Ferritin (09/30/2021 7:02 PM LAST INSERTER) athologist Signature Ferritin 13 (L) 22 - 275 09/30/2021 [facility] ng/mL 10:48 PM [facility] Specimen Anatomical Collection Method / Collection Time Recei shahid Time (Source) Location / Volume Laterality Blood Venipuncture / 09/30/2021 7:02 09/30/2021 7:07 Unknown PM LAST INSERTER PM LAST INSERTER Ted Burdick MD LAB_1 Performing Organization Address City/State/ZIP Code Phon e Number [address] [address] (ABNORMAL) Iron Profile (Iron,TIBC,%Sat.(Calc)) (09/30/2021 7:02 PM LAST INSERTER) [facility] Method Time Signature Iron 14 (L) 65 - 175 09/30/2021 [facility] mcg/dL 10:41 PM HOSPITAL LAST INSERTER Transferrin 324 174 - 364 09/30/2021 [facility] mg/dL 10:41 PM HOSPITAL LAST INSERTER TIBC, Calculated 405 240 - 450 09/30/2021 [facility] mcg/dL 10:41 PM HOSPITAL LAST INSERTER % Saturation, 3 (L) 10 - 50 % 09/30/2021 [facility] Calculated 10:41 PM HOSPITAL LAST INSERTER TIBC Low iron, 09/30/2021 [facility] Interpretation normal TIBC, 10:41 PM HOSPITAL possible LAST INSERTER iron deficiency. Specimen Anatomical Collection Method / Collection Time Recei shahid Time (Source) Location / Volume Laterality Blood Venipuncture / 09/30/2021 7:02 09/30/2021 7:07 Unknown PM LAST INSERTER PM LAST INSERTER Ted Burdick MD LAB_1 Performing Organization Address City/State/ZIP Code Phon e Number [address] [address] (ABNORMAL) Differential (09/30/2021 7:02 PM LAST INSERTER) [facility] Method Time Signature Polychromasia Slight (A) None Seen 09/30/2021 [facility] 7:42 PM [facility] RBC Morphology Reviewed 09/30/2021 [facility] 7:42 PM [facility] Platelet Estimate Adequate Adequate 09/30/2021 [facility] 7:42 PM [facility] Neutrophil 7.1 (H) 1.7 - 7.0 09/30/2021 [facility] Absolute 10(9)/L 7:42 PM [facility] Lymphocyte 0.5 (L) 1.0 - 4.8 09/30/2021 [facility] Absolute 10(9)/L 7:42 PM [facility] Monocytes 0.3 0.2 - 0.9 09/30/2021 [facility] Absolute 10(9)/L 7:42 PM [facility] Eosinophil 0.0 0.0 - 0.5 09/30/2021 [facility] Absolute 10(9)/L 7:42 PM [facility] Basophil Absolute 0.1 0.0 - 0.3 09/30/2021 [facility] 10(9)/L 7:42 PM [facility] Specimen Anatomical Collection Method / Collection Time Recei shahid Time (Source) Location / Volume Laterality Blood Venipuncture / 09/30/2021 7:02 09/30/2021 7:07 Unknown PM LAST INSERTER PM LAST INSERTER Jonah Nova MD LAB_1 Performing Organization Address [facility]/ZIP [facility] Phon e Number [address] [address] Blood Type second draw (09/30/2021 7:02 PM LAST INSERTER) P athologist Signature ABO A 09/30/2021 [facility] BLOOD 7:42 PM LAST INSERTER BANK RH Positive 09/30/2021 [facility] BLOOD 7:42 PM LAST INSERTER BANK Specimen Anatomical Collection Method / Collection Time Recei shahid Time (Source) Location / Volume Laterality Blood Venipuncture / 09/30/2021 7:02 09/30/2021 7:07 Unknown PM LAST INSERTER PM LAST INSERTER Eugenia Gupta MD LAB_1 Performing Organization Address [facility] Phon e Number [facility] BLOOD BANK [address] [place] [address] (ABNORMAL) Complete Blood Count-W/Diff (09/30/2021 7:02 PM LAST INSERTER) Analysis Performed At Patho logist Time Signature WBC 8.0 3.5 - 10.5 09/30/2021 [facility] x10(9)/L 7:42 PM [facility] RBC 2.68 (L) 4.32 - 09/30/2021 [facility] 5.72 7:42 PM [facility] x10(12)/L Hemoglobin 6.0 (LL) 13.5 - 09/30/2021 [facility] 17.5 g/dL 7:42 PM [facility] HCT 20.8 (L) 38.8 - 09/30/2021 [facility] 50.0 % 7:42 PM [facility] MCV 77.6 (L) 80.0 - 09/30/2021 [facility] 100.0 fL 7:42 PM [facility] MCH 22.4 (L) 27.6 - 09/30/2021 [facility] 33.3 pg 7:42 PM [facility] MCHC 28.8 (L) 31.5 - 09/30/2021 [facility] 35.2 g/dL 7:42 PM [facility] RDW 17.5 (H) 11.9 - 09/30/2021 [facility] 15.5 % 7:42 PM [facility] Platelets 151 150 - 450 09/30/2021 [facility] x10(9)/L 7:42 PM [facility] Automated NRBC 0 <=0 /100 09/30/2021 [facility] WBC 7:42 PM [facility] Specimen Anatomical Collection Method / Collection Time Recei shahid Time (Source) Location / Volume Laterality Blood Venipuncture / 09/30/2021 7:02 09/30/2021 7:07 Unknown PM LAST INSERTER PM LAST INSERTER Jonah Nova MD LAB_1 Performing Organization Address City/State/[place] [address] (ABNORMAL) Basic Metabolic Panel (09/30/2021 7:02 PM LAST INSERTER) athologist Signature Sodium 136 136 - 145 09/30/2021 [facility] mmol/L 7:46 PM [facility] Potassium 4.0 3.5 - 5.1 09/30/2021 [facility] mmol/L 7:46 PM [facility] Chloride 104 98 - 109 09/30/2021 [facility] mmol/L 7:46 PM [facility] CO2 24 20 - 29 09/30/2021 [facility] mmol/L 7:46 PM [facility] Anion Gap 8 7 - 16 09/30/2021 [facility] mmol/L 7:46 PM [facility] Calcium 8.4 8.4 - 10.4 09/30/2021 [facility] mg/dL 7:46 PM [facility] BUN 26 7 - 26 09/30/2021 [facility] mg/dL 7:46 PM [facility] Creatinine 0.78 0.73 - 09/30/2021 [facility] 1.18 mg/dL 7:46 PM [facility] GFR, Estimated >60 >60 09/30/2021 [facility] mL/min/1.7 7:46 PM [facility] 3m2 Glucose 152 (H) 70 - 100 09/30/2021 [facility] mg/dL 7:46 PM [facility] Comment: The given reference range is fo r the fasting state. Non-fasting reference range for glucose is 70 - 180 mg/dL. Specimen Anatomical Collection Method / Collection Time Recei shahid Time (Source) Location / Volume Laterality Blood Venipuncture / 09/30/2021 7:02 09/30/2021 7:07 Unknown PM LAST INSERTER PM LAST INSERTER Jonah Nova MD LAB_1 Performing Organization Address [facility]/ZIP [facility] Phon e Number [address] [address] Blood Smear Review (Lab Use Only) (09/30/2021 6:27 PM LAST INSERTER) Patholo gist Method Time Signature Path Review Special heme 10/01/2021 [facility] tech 11:24 AM [facility] performed slide review Path Review Hgb low 10/01/2021 [facility] Reason 11:24 AM [facility] Specimen Anatomical Collection Method / Collection Time Recei shahid Time (Source) Location / Volume Laterality Blood Venipuncture / 09/30/2021 6:27 09/30/2021 6:47 Unknown PM LAST INSERTER PM LAST INSERTER Jonah Nova MD LAB_1 Performing Organization Address [facility]/ZIP Code Phon e Number [address] [address] (ABNORMAL) Hemoglobin, Blood (09/30/2021 6:27 PM LAST INSERTER) P athologist Signature Hemoglobin 5.8 (LL) 13.5 - 17.5 09/30/2021 [facility] g/dL 7:12 PM [facility] Specimen Anatomical Collection Method / Collection Time Recei shahid Time (Source) Location / Volume Laterality Blood Venipuncture / 09/30/2021 6:27 09/30/2021 6:47 Unknown PM LAST INSERTER PM LAST INSERTER Jonah Nova MD LAB_1 Performing Organization Address [facility]/ZIP [facility] Phon e Number [address] [address] INR/Protime (09/30/2021 6:27 PM LAST INSERTER) P athologist Signature Protime 13.6 11.8 - 14.6 09/30/2021 [facility] Seconds 7:03 PM [facility] INR 1.1 0.9 - 1.1 09/30/2021 [facility] 7:03 PM [facility] Specimen Anatomical Collection Method / Collection Time Recei shahid Time (Source) Location / Volume Laterality Blood Venipuncture / 09/30/2021 6:27 09/30/2021 6:47 Unknown PM LAST INSERTER PM LAST INSERTER [facility] 09/30/2021 7:03 PM CS T Therapeutic range determined by protocol established by anticoagulation provider. Jonah Nova MD LAB_1 Performing Organization Address [facility] Phon e Number [address] [address] APTT (Activated Partial Thromboplastin Time) (09/30/2021 6:27 PM LAST INSERTER) P athologist Signature APTT 31.7 22.5 - 36.5 09/30/2021 [facility] Seconds 7:03 PM [facility]ST [facility] HOSPITAL Specimen Anatomical Collection Method / Collection Time Recei shahid Time (Source) Location / Volume Laterality Blood Venipuncture / 09/30/2021 6:27 09/30/2021 6:47 Unknown PM LAST INSERTER PM LAST INSERTER Jonah Nova MD LAB_1 Performing Organization Address [facility] Phon e [address] [address] Antibody Screen (09/30/2021 6:27 PM LAST INSERTER) [facility] Method Time Signature Antibody Screen Negative 09/30/2021 [facility] BLOOD Interpretation 7:35 PM LAST INSERTER BANK Specimen Anatomical Collection Method / Collection Time Recei shahid Time (Source) Location / Volume Laterality Blood Venipuncture / 09/30/2021 6:27 09/30/2021 6:46 Unknown PM LAST INSERTER PM LAST INSERTER Jonah Nova MD LAB_1 Performing Organization Address [facility] Phon e Number [facility] BLOOD BANK [address] [place] [address] Blood Type (09/30/2021 6:27 PM LAST INSERTER) P athologist Signature ABO A 09/30/2021 [facility] BLOOD 7:23 PM LAST INSERTER BANK RH Positive 09/30/2021 [facility] BLOOD 7:23 PM LAST INSERTER BANK Specimen Anatomical Collection Method / Collection Time Recei shahid Time (Source) Location / Volume Laterality Blood Venipuncture / 09/30/2021 6:27 09/30/2021 6:46 Unknown PM LAST INSERTER PM LAST INSERTER Jonah Nova MD LAB_1 Performing Organization Address [facility] Phon e Number [facility] BLOOD BANK [address] [place] [address] documented in this encounter Visit Diagnoses Diagnosis [...] fall on same level, initial encoun ter Closed fracture of distal end of left fe mur, unspecified fracture morphology, initial encounter (HRC) Plan of Care - Pop Green RN - 10/03/2021 3:45 PM CST Patient called the unit on this date with some sort of medical question. Attempted to return the call now, patient did not answer and has a VM box that is not set up. Will try again later INSERTER Plan of Care - Brenda Bar RN - 10/03/2021 3:24 PM CST [facility] Discharge Note - Nursing Admission Date/Time: 09/30/2021 5:33 PM Attending MD: Martha Gottlieb MD Patient discharged: to Home. Discharge Date: 10/03/2021 Discharge Time: 3:24 PM Patient accompanied by: self and transportation security officer (TSI). Transported by: Wheelchair Valuables were taken [...] about DC instructions. SBA with walker to WC, belongings and walker sent with pt and transportation person. All medical devices (telemetry/IV/etc) unless otherwise ordered, have been removed and stored: Yes --- End of Report --- INSERTER Plan of Care - Afshan Guajardo RN - 10/03/2021 3:09 PM CST I completed a full assessment and assessments as ordered and per policy on this patient during my work shift. Reassessments completed during my work shift are unchanged unless documented. INSERTER Plan of Care - Dilcia Barr RN - 10/03/2021 2:02 PM CST [facility] Care Management Discharge Note Discharge Information: Expected [...] to shower in basement) Contacts: Emergency Contacts Rnfa (Rel.) Home Phone Work Phone Mobile Phone Magali Luna (Spouse) [phone] -- -- Decline,Pt 03/23/2018 -- -- -- [...] Additional Comments: Case discussed in care rounds. Frame Hand was notified that patient needing assistance with transportation home. I met with patient, he is needing a wheelchair ride home today. His will be home when he arrives but she is unable to drive. He has a ramp to enter the home and has [employer] PMAP. Ride re quested and obtained for [id number]. PT recommending outpatient PT, pt prefers to go to [facility] for outpatient PT. Paged ortho corporate legal intern and obtained order which I printed and gave to the patient and instructed him to call [facility] and they will want him to bring printed order to appt. Dilcia Barr RN INSERTER Plan of Care - Linda Longo RN - 10/03/2021 7:28 AM CST I completed a full assessment and assessments as ordered and per policy on this patient during my work shift. Reassessments completed during my work shift are unchanged unless documented. INSERTER Plan of Care - Brenda Bar RN [...] my work shift are unchanged unless documented. INSERTER Plan of Care - Kera Reeder RN - 10/02/2021 2:58 PM CST I completed a full assessment and assessments as ordered on this patient during my work shift. Reassessments completed during my work shift are unchanged unless documented. INSERTER Plan of Care - Sommer Lowery RN - 10/02/2021 1:16 AM CST [facility] Plan of Care Note Assessment: Plan of [...] unless documented. --- End of Report --- INSERTER Plan of Care - Brenda Bar RN [...] willing to answer and let RN do. INSERTER Plan of Care - Josep Cervantes MD [...] to the patient and agreed [facility]. Josep Cervantes MD Orthopaedic Surgery, PGY-2 Pager: [phone] INSERTER Plan of Care - Brenda Bar RN - 10/01/2021 5:06 PM CST [facility]. Practitioner Notified Note Name of Practitioner notified: Ortho consult Time of Practitioner notification: 5:08 PM Reason: E. Hol., 9633, Pt stating he will leave hospital without coming to floor. Not situationcan, security aware. Response: Ortho team coming up to talk to pt with security at bedside. Will notify pt at that time that is unable to come to floor. INSERTER Plan of Care - Estephania Mejia RN - 10/01/2021 2:19 PM CST [facility] Plan of Care Note Assessment: aggression, safety, [...] unless documented. --- End of Report --- INSERTER Plan of Care - Ladan Najera RN - 10/01/2021 10:08 AM CST [facility]. Practitioner Notified Note Name of Practitioner notified: Dr Gottlieb Time of Practitioner notification: 10:08 AM Reason: Luna, Ed: Can you come back to patient in STCU 2? Patient refusing blood products and needs to sign on consent. Thanks. Response: Will come see patient INSERTER Plan of Care - Estephania Mejia RN - 10/01/2021 9:04 AM CST [facility] Nursing Pre-Op Note Admission Date/Time: 09/30/2021 5:33 PM Time of transport to the Operating Room: 09 Transported by: Litter/cart Pre-Op checklist complete?: yes INSERTER Plan of Care - Diana Early RN - 10/01/2021 3:56 AM CST [facility] Plan of Care Note Assessment: Plan of [...] two providers. Concerned about heather communicable diseases. Harvest Supervisor stated this may delay his surgery. Patient states that he was being forced to get blood. Harvest Supervisor explained the safety concerns of low hemoglobin and surgery. Patient stated he did not want to talk about it anymore. Aboutan hour later patient stated that he would take the blood under protest. Harvest Supervisor clarified that this meant he was consenting. Patient confirmed. Started transfusion of 2 units. I completed a full assessment and assessments as ordered and per policy on this patient during my work shift. Reassessments completed during my work shift are unchanged unless documented. --- End of Report --- INSERTER Plan of Care - Josep Cervantes MD [...] and that this country is ???going to shit?? . I recognized that thepatient has reservations [...] He suggested that this felt like [place]. He repeatedly statedthat the only circumstances under which he would be willing to receive blood is if I personally drafted a statement or letter that would allow him to yudi me personally, his nurse, and [facility] if he received any sort of blood borne illness from a transfusion. I explained that [facility] does not have such statements. Ultimately, I [...] Josep Cervantes MD Orthopaedic Surgery, PGY-2 Pager: [phone] INSERTER Triage Assessment Note - Yari Adams RN - 09/30/2021 5:35 PM LAST INSERTER Patient arrived by [facility] from Hospital with chief complaint: Femur fracture Symptoms/background (EMS narrative): Pt. Was at home and slipped on the ice and fell on the left knee. CMS intact. Leg was splinted at [facility]. Has been given dilaudid for pain. Interventions/abnormal vitals: VSS. 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 INSERTER documented in this encounter Admitting Diagnoses Diagnosis [...] S tarting on Thu09/30/21 at 2142, Until Thu10/03/21 at 1754 bisacodyl (DULCOLAX) rectal suppository 10 [...] chewable tablet Given 10/03/2021 9:32 A M LAST INSERTER 1,000 mg 500-1,000 mg 500-1,000 mg, Oral, QID PRN, Heartburn, Dyspepsia, Starting on Thu09/30/21 at 2142, Until Thu10/03/21 at 1754, Each tablet provides 200 mg elemental calcium Given 10/02/2021 7:13 PM LAST INSERTER 1,000 mg Given 10/02/2021 2:30 PM LAST INSERTER 1,000 mg dextrose (D50) injection 25 g 25 g, Intravenous, Q15MIN PRN, Hypoglycemia, Per Adult Hypoglycemia Treatment Protocol, Starting on Thu09/30/21 at 214 2, Per Hypoglycemic episode: Give 25g IV push, recheck POCT glucose in 15 minutes , if result less than 70mg/dL, may repeat. After 2 doses notify Practitioner. May continue to karolyn at while waiting for call back. glucagon rDNA (diagnostic) (GLUCAGEN) in jection 1 [...] Hazardous waste, dispose of in [place]. methocarbamol (ROBAXIN) tablet 500 mg Given 09/30/2021 10:35 PM LAST INSERTER 500 mg 500 mg, Oral, Q6H PRN, Muscle Spasms, Starting on Thu09/30/21 at 2142, Until Thu10/03/21 at 1754 metoclopramide (REGLAN) injection 5 mg [...] immediate release tablet Given 10/03/2021 2:44 PM LAST INSERTER 5 mg 5-10 mg 5-10 mg, Oral, Q4H PRN, Pain, Starting on Thu09/30/21 at 2142, Until Ruth 10/03/21 at 1754, Give PO opioid if able to take PO and pain not well controlled with other medications or interventions. Given 10/03/2021 9:32 AM LAST INSERTER 10 mg Given 10/02/2021 11:09 AM LAST INSERTER 5 mg polyethylene glycol (MIRALAX) oral powde [...] Startin g on Thu09/30/21 at 2142, Until Thu10/03/21 at [...] on Thu09/30/21 at 2142, Until Thu10/03/21 at 17 54, Cumulative bowel medication orders. [...] begin regimen again until patient stools., Post-op documented in this encounter Active and Recently Administered Medications Times are shown in LAST INSERTER. Scheduled Medication Order 10/01/2021 10/02/2021 10/03/2021 acetaminophen [...] 0.9% (ANCEF) IVPB 2 g (CO MPLETED) 103 (Given - Provider: Pooja Whitlock APRN, WARP KNITTER HELPER) 2 g, Intravenous, Administer over 30 Min [...] Patient/family refused - Comment: I'm not diabetic.) 09 (Not Given - Provider: Kera ordonez RN [...] 8.6-50 MG per t ablet 1 Tablet 827 (Not Given - Provider: Estephania Mejia RN - Reason: Patient/family refused)2131 (Not Given - Provider: Brenda Bar RN - Reason: Patient/family refused) 09 (Not Given - Provider: Kera ordonez RN - Reason: Patient/family refused)191 (Not Given - Provider: Brenda Bar RN - Reason: Patient/family refused) 1009 (Not Given - Provider: Afshan Guajardo RN - Reason: Patient/family refused) 1 Tablet, Oral, BID, First dose on Thu at 2200, Until Discontinued, as laxative/stimulant, stool-softening agent, Post-op tranexamic acid (CYKLOKAPRON) 1000 mg in sodium chloride 0.9% (10 mg/mL) 100 mL IVPB premix (COMPLETED) 1036 (Given - Provider: Pooja Simmons APRN, WARP KNITTER HELPER) 1,000 mg, Intravenous, ONCE, On 10/01 at 0900, For 1 dose, Administer once at incision and once at start of closure., Pre-op tranexamic acid (CYKLOKAPRON) 1000 mg in sodium chloride 0.9% (10 mg/mL) 100 mL IVPB premix (COMPLETED) 1359 (Given - Provider: Pooja Simmons APRN, LUZMA) 1,000 mg, Intravenous, ONCE, On 10/01 at 0900, For 1 dose, Administer once at incision and once at start of closure., Pre-op Continuous Medication Order 10/01/2021 10/02/2021 10/03/2021 lactated ringers infusion (CANCELED) 0937 (Started - P rovider: Irma Barr RN)1016 (Stopped - Provider: Pooja Whitlock APRN, LUZMA - Comment: Switch to gravity)1017 (Restarted - Provider: Pooja Whitlock APRN, LUZMA) Intravenous, at 30 mL/hr, CONTINUOUS, St arting on Thu10/01/21 at 0845, If IV started. Continuous., Pre-op 1251 (Infused - Provider: Pooja Quinn APRN, WARP KNITTER HELPER)1303 (Restarted - Provider: Pooja Whitlock APRN, LUZMA)1351 (Started - Provider: Pooja Whitlock APRN, LUZMA)1359 (Anesthesia Fluid - Provider: Pooja Whitlock APRN, LUZMA) 1441 (Infused - Provider: Pooja Whitlock APRNLUZMA) PRN Medication Order 10/01/2021 10/02/2021 10/03/2021 benzocaine-menthol (CEPACOL) lozenge 1 Lozenge 1 Lozenge, Oral, Q2H PRN, Throat Pain, S tarting on Thu09/30/21 at 2142, Until Ruth 10/03/21 at 1754 bisacodyl (DULCOLAX) rectal suppository 10 mg(Linked Group 2) 10 mg, Rectal, DAILY PRN, Constipation, No stool in the last 3 days, Starting on Thu09/30/21 at 2142, Until Ruth 10/03/21 at 1754, Cumulative bowel medication orders. If [...] 500-1,000 mg 1430 (Given - Provider: Kera Reeder RN)1913 (Given - Provider: Brenda Bar RN) 0932 (Given - Provider: Afshan Guajardo RN) [...] Provider: Anika Lazo RN) 25-50 mcg, Intravenous, L5UORVOD, Pain, Starting on Thu10/01/21 at 1412, Until [...] Thu09/30/21 at 2142, Until Thu10/03/21 at 1754, Per Hypoglycemic episode: Give 1mg [...] at 2142, Until Thu10/03/21 at 1754, Give 15g orally, recheck POCT glucose in 15 minute s, if result less than 70mg/dL, may repe at. After 2 doses notify Practitioner. May continue to treat while waiting for call back. 37.5g tube delivers 15g of glucose methocarbamol (ROBAXIN) tablet 500 mg 500 mg, Oral, Q6H PRN, Muscle Spasms, St arting on Thu09/30/21 at 2142, Until Thu10/03/21 at 1754 metoclopramide (REGLAN) injection 5 mg(Linked [...] 5-10 mg 1109 (Given - Provider: Kera Reeder RN) 0932 (Given - Provider: Afshan cabrera RN)1444 (Given - Provider: Afshan Guajardo RN) 5-10 mg, Oral, Q4H PRN, Pain, Starting [...] at 2142, Until Ruth 10/03/21 at 1754
Per Hypoglycemic episode: Give 1mg [...] Nausea/Vomiting. documented in this encounter Care Teams Public Relations Professional Relationship Specialty Start Date End Date Kevin Cobb MD PCP - General Family Practice 09/30/21 documented as of this encounter
--- OUTSIDE RECORDS SUMMARY | 2022-07-29 11:08 | XMS_ITS | Encounter Summary ---
:1960 Author Organization [facility] Address [address], [place] [address] Care Team Providers Name Role Phone Cintia Cobb MD Primary Care Provider [phone] Encounter Details Date Type Department Care Team Description 09/30/2021 Partner ED HIM DEPARTMENT Provider, Aguilar hernandez MD [facility] 09/30/2021 [place] [address] Social History Tobacco Use Types Packs/Day Years [...] 08/04/2022 Appointment Orthopedics Delgado Gottlieb MD [address] [place], [place] [phone] (Gavi presley) 10/08/2022 Appointment Orthopedics Delgado Gottlieb MD [address] [place] [phone] (Gavi presley) 05/27/2023 Appointment Chemo Therapy/Infusion Services documented as of this encounter Visit Diagnoses Not on filedocumented in this encounter Care Teams Law Clerk Relationship Specialty Start Date End Date Cintia Cobb MD PCP - General Family Practice 09/30/21 documented as of this encounter
--- OUTSIDE RECORDS SUMMARY | 2022-07-29 11:08 | XMS_ITS | Encounter Summary ---
:1960 Author Organization [facility] Address [address] [place] [address] Care Team Providers Name Role Phone Cintia Cobb MD Primary Care Provider [phone] Encounter Details Date Type Department Care Team Description 09/18/2021 Notes/Orders [facility] Cesar Champagne, [address] [place], [place] [address] [address] [place] [address] [place] [address] (Gavi presley) Social History Tobacco [...] Description 08/04/2022 Appointment Orthopedics Delgado Gottlieb MD [address] [place] [phone] (Gavi rk) 10/08/2022 Appointment Orthopedics Delgado Gottlieb MD [address] [place] [phone] (Wo rk) 05/27/2023 Appointment Chemo Therapy/Infusion Services documented as of this encounter Visit Diagnoses Not on filedocumented in this encounter Care Teams Senior Technologist Relationship Specialty Start Date End Date Cintia Cobb MD PCP - General Family Practice 09/30/21 documented as of this encounter
--- OUTSIDE RECORDS SUMMARY | 2022-07-29 11:08 | XMS_ITS | Encounter Summary ---
:1960 Author Organization [facility] Address [address] [place] [address] Care Team Providers Name Role Phone Cintia Cobb MD Primary Care Provider [phone] Reason for Visit Auth/Cert Specialty Diagnoses / [...] Expiration Date Visits Requ ested Visits Authorized [id number] 1 1 Encounter Details Date Type Department Care Team Description 10/02/2021 Ancillary Procedure [facility] [address] [place] [address] Social History Tobacco Use Types Packs/Day Years [...] Description 08/04/2022 Appointment Orthopedics Delgado Gottlieb MD [address] [place] [phone] (Wo rk) 10/08/2022 Appointment Orthopedics Delgado Gottlieb MD [address] [place], [place] [phone] (Wo rk) 05/27/2023 Appointment Chemo Therapy/Infusion Services documented as of this encounter Procedures Procedure Name Priority Date/Time Associated Diagnosis Comme nts XR FEMUR LT 2 VIEWS Routine 10/02/2021 10:21 AM R esults for this KNOWLEDGE ARCHITECT procedure are i n the results section. documented in this encounter Results XR Femur Lt 2 Views (10/02/2021 10:21 AM KNOWLEDGE ARCHITECT) Anatomical Region Laterality Modality Lower Extremity, Leg, Thigh Computed Rad iography Specimen (Source) Anatomical Collection Method Collection Time Re ceived Time Location / / Volume Laterality 10/02/2021 10:21 AM KNOWLEDGE ARCHITECT Narrative 10/02/2021 10:37 AM KNOWLEDGE ARCHITECT EXAM: XR FEMUR LT 2 VIEWS LOCATION: [...] thigh. Osteopenia of the visualized bones. Suzie LIN documented in this encounter Visit Diagnoses Not on filedocumented in this encounter Care Teams Creative Arts Therapist Relationship Specialty Start Date End Date Cintia Cobb MD PCP - General Family Practice 09/30/21 documented as of this encounter
--- OUTSIDE RECORDS SUMMARY | 2022-07-29 11:08 | XMS_ITS | Encounter Summary ---
:1960 Author Organization [facility] Address [address] [place] [address] Care Team Providers Name Role Phone Cintia Cobb MD Primary Care Provider [phone] Reason for Visit Auth/Cert Specialty Diagnoses / [...] Expiration Date Visits Requ ested Visits Authorized [id number] 1 1 Encounter Details Date Type Department Care Team Description 10/01/2021 Ancillary Procedure [facility] [address] [place] [address] Social History Tobacco Use Types Packs/Day Years [...] 08/04/2022 Appointment Orthopedics Delgado Gottlieb MD [address] [place] [phone] (Wo rk) 10/08/2022 Appointment Orthopedics Delgado Gottlieb MD [address] [place], [place] [address] (Gavi rk) 05/27/2023 Appointment Chemo Therapy/Infusion Services documented as of this encounter Procedures Procedure Name Priority Date/Time Associated Diagnosis Comme nts XR C-ARM 3.5-4 Routine 10/01/2021 2:11 PM Results for this HOURS POULTRY TENDER procedure are i n the results section. documented in this encounter Results XR C-Arm 3.5-4 Hours (10/01/2021 2:11 PM POULTRY TENDER) Anatomical Region Laterality Modality X-Ray Angiography Specimen (Source) Anatomical Location Collection Method / Collectio n Time Received Time / Laterality Volume Narrative 10/01/2021 2:12 PM POULTRY TENDER Fluoroscopy provided by a phlebotomy technologist. Exact fluoroscopy time is documented in end of exam information in EPIC Delgado Gottlieb MD RAD GD documented in this encounter Visit Diagnoses Not on filedocumented in this encounter Care Teams Spectrographic Analyst Relationship Specialty Start Date End Date Cintia Cobb MD PCP - General Family Practice 09/30/21 documented as of this encounter
--- OUTSIDE RECORDS SUMMARY | 2022-07-29 11:09 | XMS_ITS | Encounter Summary ---
:1960 Author Organization [facility] Address [address] [place] [address] Care Team Providers Name Role Phone Ladan Song MD Primary Care Provider Unavailable Reason for Visit Reason Comments Phone Call From Patient Encounter Details Date Type Department Care Team Description 01/29/2021 Telephone [facility] Cesar Champagne Phone Call From Patient [address] [facility] MD [place], [place] [address] [address] [place], [place] [phone] [place] [address] Social History Tobacco Use Types Packs/Day Years Used Date Smoking Tobacco: Never Smokeless Tobacco: Never Food Insecurity Answer Date Recorded Within the [...] documented as of this encounter Nursing Notes Yissel Moctezuma RN - 01/29/2021 4:34 PM CDT Attempted to call patient again. Patient did not answer, no voice mailbox set up. Yissel Moctezuma RN - 01/29/2021 2:43 PM CDT Unable to reach patient, voicemail not set up. Alysa Winter - 01/29/2021 1:45 PM CDT Ed called today to speak with a member of Dr. Short care team. Ask if it was emergent, responsewas his pain in his back is getting worse. Informed him I would have to send a message over and ask for a call back. This is when he got really rude. Started with, I will just by some meth for the pain, going on and on. I asked repeatedly if he would like a message sent. He said no dont waste there time. I explained his situation is not considered emergent and this is protocol. Sounds like he is atwork. Had excuses for every suggestion I had.. He hung up on me. Wanted to give a heads up in case he calls again. He is not a pleasant person. documented in this encounter Plan of Treatment Upcoming Encounters Date Type Specialty Care Team Description 08/04/2022 Appointment Orthopedics Delgado Gottlieb MD [address] [place], [place] [address] (Gavi presley) 10/08/2022 Appointment Orthopedics Delgado Gottlieb MD [address] [place], [place] [phone] (Gavi presley) 05/27/2023 Appointment Chemo Therapy/Infusion Services documented as of this encounter Visit Diagnoses Not on filedocumented in this encounter Care Teams School Supervisor Relationship Specialty Start Date End Date Ladan Song MD PCP - General Internal Medicine 08/18/17 09/29/21 documented as of this encounter
--- OUTSIDE RECORDS SUMMARY | 2022-07-29 11:09 | XMS_ITS | Encounter Summary ---
:1960 Author Organization Replaced by [facility] Address [address], [place] [address] Care Team Providers Name Role Phone Ladan Song MD Primary Care Provider Unavailable Reason for Visit Reason Comments Post Visit Follow Up Phone Call Encounter Details Date Type Department Care Team Description 06/27/2021 Telephone [facility] Lizeth Valentino Post Visit Follow Up [address] [facility] Yeni Dooley, RN Phone Call [place], [place] [address] Social History Tobacco Use Types Packs/Day Years [...] 08/04/2022 Appointment Orthopedics Delgado Gottlieb MD [address] [place], [place] [address] (Gavi presley) 10/08/2022 Appointment Orthopedics Delgado Gottlieb MD [address] [place], [place] [address] (Gavi presley) 05/27/2023 Appointment Chemo Therapy/Infusion Services documented as of this encounter Visit Diagnoses Not on filedocumented in this encounter Care Teams Manager Military Relationship Specialty Start Date End Date Ladan Song MD PCP - General Internal Medicine 08/18/17 09/29/21 documented as of this encounter
--- OUTSIDE RECORDS SUMMARY | 2022-07-29 11:09 | XMS_ITS | Encounter Summary ---
:1960 Author Organization [facility] Address [address], [place] [address] Care Team Providers Name Role Phone Ladan Song MD Primary Care Provider Unavailable Reason for Visit Reason Comments BACK PAIN, LOW Encounter Details Date Type Department Care Team Description 07/22/2018 [facility] disc displacement, [address] lumbar region (Primary [place], [place] Dx) [address] [phone] Social History Tobacco Use Types Packs/Day Years [...] as of this encounter Patient Instructions Patient InstructionsCassi Darden, PHOTO CHECKER AND ASSEMBLER - 07/22/2018 8:[address] Giovanni Wilson MD Orthopeadic Spine Label Cutter: Anya Pittman Please contact Anya for all administrative questions at [phone] Please contact the Spine Nurse for all medical related questions at [phone] Office Hours: Thursday-Thursday and AM Medication Requests: Prescriptions are not filled on Weekends or on Weekdays after 3:00PM For all medication refills: Request a refill using [facility] or contact your Pharmacy ING SHOVEL OPERATOR documented in this encounter Progress Notes Giovanni Wilson MD - 07/22/2018 8:22 AM CST NAME: LAZ LUNA MR#: [id number] CSN: [id number] AUTHENTICATING CLINICIAN: Giovanni Wilson MD CONFIRM #: [id number] LOC: 711 CLINIC PROGRESS NOTE DATE OF VISIT: 07/22/2018 : 1960 CHIEF COMPLAINT: Follow up lumbar disk protrusion. 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 He was sent to me by Dr. Miller for radicular leg pain at the L2-3 level. He has disk bulging impinging the L3 nerve root, as well as some central stenosis. I sent him for an L3-4 transforaminal epidural, which was performed by Dr. Buckley. Ed states today that it helped a little bit. After talking to him in more detail, the emphasis should be on the word little. There is perhaps a 10 or 15% improvement in symptoms. We talked the situation over at length today and Ed would like to proceed with surgical consultation. We will get him set up with Dr. Grace. Right now, he is still in the busy grain hauling season and will get him set up for later in the winter. In the meantime, if he wishes to do a repeat injection, he can call in to our nurse number to once again arrange for a repeat lumbar epidural. We would order it once again as a left L3-4 injection, but with an additional note that Dr. Buckley can use his discretion if he feels a different approach would be better the 2nd time around. FINAL ASSESSMENT: Lumbar disk protrusion with ongoing left anterior thigh pain. DAA:MEDQ C: R:07/22/18 11:28 CONFIRM#:[id number] ING SHOVEL OPERATOR documented in this encounter Plan of Treatment Upcoming Encounters Date Type Specialty Care Team Description 08/04/2022 Appointment Orthopedics Delgado Gottlieb MD [address] [place] [phone] (Wo rk) 10/08/2022 Appointment Orthopedics Delgado Gottlieb MD [address] [place], [place] [address] (Wo rk) 05/27/2023 Appointment Chemo Therapy/Infusion Services documented as of this encounter Visit Diagnoses Diagnosis Other intervertebral disc displacement, lumbar region (HR[facility]) - Primary documented in this encounter Care Teams Field Laborer Relationship Specialty Start Date End Date Ladan Song MD PCP - General Internal Medicine 08/18/17 09/29/21 documented as of this encounter
--- OUTSIDE RECORDS SUMMARY | 2022-07-29 11:09 | XMS_ITS | Encounter Summary ---
:1960 Author Organization [facility] Address [address] [place] [id number] Care Team Providers Name Role Phone Ladan Song MD Primary Care Provider Unavailable Reason for Referral Procedure/Equipment (Routine) - Closed Specialty Diagnoses / Procedures Referred By Contact Refer red To Contact Diagnoses Spinal stenosis of lumbar region with neurogenic claudication Cesar Scherer MD Procedures CT Lumbar Spine Post Myelogram [address] [place] [address] Referral ID Status Reason Start Date Expiration Date Visits Requ ested Visits Authorized [id number] Closed 03/12/2021 06/11/2022 1 1 Procedure/Equipment (Routine) - Incomplete Specialty Diagnoses / Procedures Referred By Contact Refer red To Contact Diagnoses Spinal stenosis of lumbar region with neurogenic claudication Cesar Scherer MD Procedures [place] Myelogram Lumbar Spine [address] [place] [address] Referral ID Status Reason Start Date Expiration Date Visits V isits Requested Authorized [id number] Incomplete 03/12/2021 06/11/2022 1 1 Reason for Visit Reason Comments QUESTIONS, GENERAL Encounter Details Date Type Department Care Team Description 03/12/2021 Telephone [facility] Cesar Champagne, QUESTIONS, GENERAL [address] [facility] [place], [place] [address] [address] [facility] [phone] [address] [place] [phone] (Wo rk) Social History Tobacco Use Types [...] encounter Nursing Notes Hermilo Mcghee RN - 03/19/2021 8:28 AM CDT Pt was called and the dicussed an order for a CT myelogram was placed last week. Number for CT for PN was left with his since he was driving. Pt to call back once CT scan is done. Davin Diggs - 03/18/2021 4:50 PM CDT Pt is wondering what was found out about his leg since its starting to bother him worse. Please callto advise. NO VM, please call till you get through. Yissel Moctezuma RN - 03/12/2021 4:20 PM CDT Patient calling in complaining of Back and left leg pain 06/16. FARHAN: 12/25/2020 Spinal stenosis of lumbar region with neurogenic claudication ASSESSMENT: 1. Spinal stenosis. 2. Back and left leg pain. ?? PLAN: At this point, Dr. Scherer along with Mr. Luna and his I had a lengthy discussion in regard to the options moving forward. At the end of our lengthy discussion, we did recommend a left L3-4 transforaminal injection here at [facility]. If this is not therapeutically beneficial for him, the consideration of a CT myelogram was recommended today. He will call, and we would be more than willing to order this for him. Mr. Luna and his are in agreement with the plan. All questions were answered appropriately. Follow up in the meantime with further questions or concerns. Patient received injection 01/15/21 Patient is now stating pain is the same location but increased in severity. PWO, order for Lumbar CT myelogram placed. Will route to provider as FYI and to advise if necessary. documented in this encounter Plan of Treatment Upcoming Encounters Date Type Specialty Care Team Description 08/04/2022 Appointment Orthopedics Delgado Gottlieb MD [address] [place] [phone] (Gavi presley) 10/08/2022 Appointment Orthopedics Delgado Gottlieb MD [address] [place] [phone] (Gavi presley) 05/27/2023 Appointment Chemo Therapy/Infusion Services documented as of this encounter Results CT Lumbar Spine Post Myelogram (03/27/2021 9:38 AM CDT) Anatomical Region Laterality Modality Spine, L-Spine Computed Tomography Specimen (Source) Anatomical Collection Method Collection Time Re ceived Time Location / / Volume Laterality 03/27/2021 9:23 AM CDT Impressions 03/27/2021 10:37 AM CDT INDICATION: Continued back and left leg pain TECHNIQUE: ??Frontal and lateral radiogr aphs of lumbar spine. X-ray myelogram of lumbar spine. CT scan of the lumbar spine post myelogram with axial acquisition and 2-D reformatting. COMPARISON: None. PROCEDURE: ??The risks, benefits, and al ternatives to fluoroscopic-guided lumbar puncture and administration of intrathecal myelographic contrast agent were discussed with the patient. ??The patient exp ressed understanding and wished to proce ed. Relevant imaging was reviewed. ??The patient's identity, type of procedure, and location of symptoms were confirmed in the presence of the technologist. ?? Frontal and lateral radiographs of the l umbar spine were obtained. Using sterile technique, local anesthesia with 1% lidocaine, and fluoroscopic guidance a 22- gauge 3-1/2 inch spinal needle was placed a t the L2-L3 level. ??Intrathecal locatio n confirmed with return of a small amount of cerebral spinal fluid. The table was tipped with the head slightly elevated relative to the feet and 10 mL Isovue-200 M myographic contrast injected intrathe zoila under intermittent fluoroscopic visualization. Contrast was observed flowing from the level of the injection site dependently. The needle was removed. Spot AP, lateral, and oblique myelographic im aging of the lumbar spine was performed. The patient was then brought to the CT scanner where a thin section axial CT scan of the lumbar spine was performed with 2-D reformatting. FINDINGS: ?? CT Lumbar Spine: Sagittal: Five lumbar-type vertebral bod ies. Normal vertebral body height. The conus medullaris terminates at the L1-L2 level. Loss of disc space height and mild disc calcification at the L4-L5 level. L oss of disc space height at the L3-L4 an d L5-S1 levels. Normal alignment. Degenerative changes involving the sacroiliac joints, right greater than left. Axial: T12-L1: The spinal canal and neural fora men are patent. L1-2: The spinal canal and neural forame n are patent. Mild degenerative facet changes. L2-3: Mild disc bulge effaces the ventra l thecal sac eccentric to the left causing slight narrowing of the left lateral recess. Mild left neural foraminal stenosis. The right neural foramen is patent. L3-4: Posterior disc osteophyte complex with small central disc protrusion effaces the ventral thecal sac causing narrowing of the lateral recesses, left greater than right. Mild to moderate spinal ryan l stenosis. Mild bilateral neural forami nal stenosis.. L4-5: Posterior disc osteophyte complex effaces the ventral thecal sac. Moderate to severe left and mild right neural foraminal stenosis. Postoperative changes hemilaminectomy on the right. L5-S1: Posterior disc osteophyte complex mildly effaces the ventral thecal sac and causes posterior displacement of the traversing right S1 nerve root. Moderate to severe left and moderate right neural foraminal stenosis. Lumbar Myelogram: Contrast flowed freely from the injection site to the S1 level. ??No evidence of myelographic contrast block. IMPRESSION: ?? 1. Moderate to severe left neural forami nal stenosis at the L4-L5 and L5-S1 levels. 2. Moderate right neural foraminal steno sis at the L5-S1 level and mild right neural foraminal stenosis at the L4-L5 level. 3. Posterior disc osteophyte complex mil dly effaces the ventral thecal sac at the L5-S1 level causing posterior displacement of the traversing right S1 nerve root. 4. Posterior disc osteophyte complex eff aces the ventral thecal sac at the L4-L5 level. 5. Posterior disc osteophyte complex wit h small central disc protrusion effaces the ventral thecal sac at the L3-L4 level causing narrowing of the lateral recesses, left greater than right and mild to moderate spinal canal stenosis. 6. Mild bilateral neural foraminal steno sis at the L3-L4 level. Following the procedure, the patient lef jana GALE from the postprocedural suite. Procedure Note Josep Soares MD - 03/27/2021Forma tting of this note might be different from the original. IMPRESSION INDICATION: Continued back and left leg pain TECHNIQUE: Frontal and lateral radiograp hs of lumbar spine. X-ray myelogram of lumbar spine. CT scan of the lumbar spine post myelogram with axial acquisition and 2-D reformatting. COMPARISON: None. PROCEDURE: The risks, benefits, and alte rnatives to fluoroscopic-guided lumbar puncture and administration of intrathecal myelographic contrast agent were discussed with the patient. The patient expressed understanding and wished to proceed. Rel evant imaging was reviewed. The patient's identity, type of procedure, and location of symptoms were confirmed in the presence of the technologist. Frontal and lateral radiographs of the l umbar spine were obtained. Using sterile technique, local anesthesia with 1% lidocaine, and fluoroscopic guidance a 22- gauge 3-1/2 inch spinal needle was placed at the L2-L3 level. Intrathecal location confirmed wi th return of a small amount of cerebral spinal fluid. The table was tipped with the head slightly elevated relative to the feet and 10 mL Isovue-200 M myographic contrast injected intrathecally under intermitten t fluoroscopic visualization. Contrast was observed flowing from the level of the injection site dependently. The needle was removed. Spot AP, lateral, and oblique myelographic imaging of the lumbar spine was performed. The patient was then brought to the CT scanner where a thin section axial CT scan of the lumbar spine was performed with 2-D reformatting. FINDINGS: CT Lumbar Spine: Sagittal: Five lumbar-type vertebral bod ies. Normal vertebral body height. The conus medullaris terminates at the L1-L2 level. Loss of disc space height and mild disc calcification at the L4-L5 level. Loss of disc space height at the L3-L4 and L5-S1 levels. No rmal alignment. Degenerative changes involving the sacroiliac joints, right greater than left. Axial: T12-L1: The spinal canal and neural fora men are patent. L1-2: The spinal canal and neural forame n are patent. Mild degenerative facet changes. L2-3: Mild disc bulge effaces the ventra l thecal sac eccentric to the left causing slight narrowing of the left lateral recess. Mild left neural foraminal stenosis. The right neural foramen is patent. L3-4: Posterior disc osteophyte complex with small central disc protrusion effaces the ventral thecal sac causing narrowing of the lateral recesses, left greater than right. Mild to moderate spinal canal stenosis. Mild bilateral neural foraminal stenosis.. L4-5: Posterior disc osteophyte complex effaces the ventral thecal sac. Moderate to severe left and mild right neural foraminal stenosis. Postoperative changes hemilaminectomy on the right. L5-S1: Posterior disc osteophyte complex mildly effaces the ventral thecal sac and causes posterior displacement of the traversing right S1 nerve root. Moderate to severe left and moderate right neural foraminal stenosis. Lumbar Myelogram: Contrast flowed freely from the injection site to the S1 level. No evidence of myelographic contrast block. IMPRESSION: 1. Moderate to severe left neural forami nal stenosis at the L4-L5 and L5-S1 levels. 2. Moderate right neural foraminal steno sis at the L5-S1 level and mild right neural foraminal stenosis at the L4-L5 level. 3. Posterior disc osteophyte complex mil dly effaces the ventral thecal sac at the L5-S1 level causing posterior displacement of the traversing right S1 nerve root. 4. Posterior disc osteophyte complex eff aces the ventral thecal sac at the L4-L5 level. 5. Posterior disc osteophyte complex wit h small central disc protrusion effaces the ventral thecal sac at the L3-L4 level causing narrowing of the lateral recesses, left greater than right and mild to moderate spinal canal stenosis. 6. Mild bilateral neural foraminal steno sis at the L3-L4 level. Following the procedure, the patient lef t AMA from the postprocedural suite. Cesar Scherer MD RAD CT [place] Myelogram Lumbar Spine (03/27/2021 9:19 AM CDT) Anatomical Region Laterality Modality Spine, L-Spine Radio Fluoroscopy Specimen (Source) Anatomical Collection Method Collection Time Re ceived Time Location / / Volume Laterality 03/27/2021 8:24 AM CDT Impressions 03/27/2021 10:37 AM CDT INDICATION: Continued back and left leg pain TECHNIQUE: ??Frontal and lateral radiogr aphs of lumbar spine. X-ray myelogram of lumbar spine. CT scan of the lumbar spine post myelogram with axial acquisition and 2-D reformatting. COMPARISON: None. PROCEDURE: ??The risks, benefits, and al ternatives to fluoroscopic-guided lumbar puncture and administration of intrathecal myelographic contrast agent were discussed with the patient. ??The patient exp ressed understanding and wished to proce ed. Relevant imaging was reviewed. ??The patient's identity, type of procedure, and location of symptoms were confirmed in the presence of the technologist. ?? Frontal and lateral radiographs of the l umbar spine were obtained. Using sterile technique, local anesthesia with 1% lidocaine, and fluoroscopic guidance a 22- gauge 3-1/2 inch spinal needle was placed a t the L2-L3 level. ??Intrathecal locatio n confirmed with return of a small amount of cerebral spinal fluid. The table was tipped with the head slightly elevated relative to the feet and 10 mL Isovue-200 M myographic contrast injected intrathe zoila under intermittent fluoroscopic visualization. Contrast was observed flowing from the level of the injection site dependently. The needle was removed. Spot AP, lateral, and oblique myelographic im aging of the lumbar spine was performed. The patient was then brought to the CT scanner where a thin section axial CT scan of the lumbar spine was performed with 2-D reformatting. FINDINGS: ?? CT Lumbar Spine: Sagittal: Five lumbar-type vertebral bod ies. Normal vertebral body height. The conus medullaris terminates at the L1-L2 level. Loss of disc space height and mild disc calcification at the L4-L5 level. L oss of disc space height at the L3-L4 an d L5-S1 levels. Normal alignment. Degenerative changes involving the sacroiliac joints, right greater than left. Axial: T12-L1: The spinal canal and neural fora men are patent. L1-2: The spinal canal and neural forame n are patent. Mild degenerative facet changes. L2-3: Mild disc bulge effaces the ventra l thecal sac eccentric to the left causing slight narrowing of the left lateral recess. Mild left neural foraminal stenosis. The right neural foramen is patent. L3-4: Posterior disc osteophyte complex with small central disc protrusion effaces the ventral thecal sac causing narrowing of the lateral recesses, left greater than right. Mild to moderate spinal ryan l stenosis. Mild bilateral neural forami nal stenosis.. L4-5: Posterior disc osteophyte complex effaces the ventral thecal sac. Moderate to severe left and mild right neural foraminal stenosis. Postoperative changes hemilaminectomy on the right. L5-S1: Posterior disc osteophyte complex mildly effaces the ventral thecal sac and causes posterior displacement of the traversing right S1 nerve root. Moderate to severe left and moderate right neural foraminal stenosis. Lumbar Myelogram: Contrast flowed freely from the injection site to the S1 level. ??No evidence of myelographic contrast block. IMPRESSION: ?? 1. Moderate to severe left neural forami nal stenosis at the L4-L5 and L5-S1 levels. 2. Moderate right neural foraminal steno sis at the L5-S1 level and mild right neural foraminal stenosis at the L4-L5 level. 3. Posterior disc osteophyte complex mil dly effaces the ventral thecal sac at the L5-S1 level causing posterior displacement of the traversing right S1 nerve root. 4. Posterior disc osteophyte complex eff aces the ventral thecal sac at the L4-L5 level. 5. Posterior disc osteophyte complex wit h small central disc protrusion effaces the ventral thecal sac at the L3-L4 level causing narrowing of the lateral recesses, left greater than right and mild to moderate spinal canal stenosis. 6. Mild bilateral neural foraminal steno sis at the L3-L4 level. Following the procedure, the patient lef t AMA from the postprocedural suite. Procedure Note Josep Soares MD - 03/27/2021Forma tting of this note might be different from the original. IMPRESSION INDICATION: Continued back and left leg pain TECHNIQUE: Frontal and lateral radiograp hs of lumbar spine. X-ray myelogram of lumbar spine. CT scan of the lumbar spine post myelogram with axial acquisition and 2-D reformatting. COMPARISON: None. PROCEDURE: The risks, benefits, and alte rnatives to fluoroscopic-guided lumbar puncture and administration of intrathecal myelographic contrast agent were discussed with the patient. The patient expressed understanding and wished to proceed. Rel evant imaging was reviewed. The patient's identity, type of procedure, and location of symptoms were confirmed in the presence of the technologist. Frontal and lateral radiographs of the l umbar spine were obtained. Using sterile technique, local anesthesia with 1% lidocaine, and fluoroscopic guidance a 22- gauge 3-1/2 inch spinal needle was placed at the L2-L3 level. Intrathecal location confirmed wi th return of a small amount of cerebral spinal fluid. The table was tipped with the head slightly elevated relative to the feet and 10 mL Isovue-200 M myographic contrast injected intrathecally under intermitten t fluoroscopic visualization. Contrast was observed flowing from the level of the injection site dependently. The needle was removed. Spot AP, lateral, and oblique myelographic imaging of the lumbar spine was performed. The patient was then brought to the CT scanner where a thin section axial CT scan of the lumbar spine was performed with 2-D reformatting. FINDINGS: CT Lumbar Spine: Sagittal: Five lumbar-type vertebral bod ies. Normal vertebral body height. The conus medullaris terminates at the L1-L2 level. Loss of disc space height and mild disc calcification at the L4-L5 level. Loss of disc space height at the L3-L4 and L5-S1 levels. No rmal alignment. Degenerative changes involving the sacroiliac joints, right greater than left. Axial: T12-L1: The spinal canal and neural fora men are patent. L1-2: The spinal canal and neural forame n are patent. Mild degenerative facet changes. L2-3: Mild disc bulge effaces the ventra l thecal sac eccentric to the left causing slight narrowing of the left lateral recess. Mild left neural foraminal stenosis. The right neural foramen is patent. L3-4: Posterior disc osteophyte complex with small central disc protrusion effaces the ventral thecal sac causing narrowing of the lateral recesses, left greater than right. Mild to moderate spinal canal stenosis. Mild bilateral neural foraminal stenosis.. L4-5: Posterior disc osteophyte complex effaces the ventral thecal sac. Moderate to severe left and mild right neural foraminal stenosis. Postoperative changes hemilaminectomy on the right. L5-S1: Posterior disc osteophyte complex mildly effaces the ventral thecal sac and causes posterior displacement of the traversing right S1 nerve root. Moderate to severe left and moderate right neural foraminal stenosis. Lumbar Myelogram: Contrast flowed freely from the injection site to the S1 level. No evidence of myelographic contrast block. IMPRESSION: 1. Moderate to severe left neural forami nal stenosis at the L4-L5 and L5-S1 levels. 2. Moderate right neural foraminal steno sis at the L5-S1 level and mild right neural foraminal stenosis at the L4-L5 level. 3. Posterior disc osteophyte complex mil dly effaces the ventral thecal sac at the L5-S1 level causing posterior displacement of the traversing right S1 nerve root. 4. Posterior disc osteophyte complex eff aces the ventral thecal sac at the L4-L5 level. 5. Posterior disc osteophyte complex wit h small central disc protrusion effaces the ventral thecal sac at the L3-L4 level causing narrowing of the lateral recesses, left greater than right and mild to moderate spinal canal stenosis. 6. Mild bilateral neural foraminal steno sis at the L3-L4 level. Following the procedure, the patient lef t AMA from the postprocedural suite. Cesar Scherer MD [facility] documented in this encounter Visit Diagnoses Diagnosis Spinal stenosis of lumbar region with ne urogenic claudication - Primary Spinal stenosis, lumbar region, with kaci rogenic claudication documented in this encounter Care Teams Comb Fixer Relationship Specialty Start Date End Date Ladan Song MD PCP - General Internal Medicine 08/18/17 09/29/21 documented as of this encounter
--- OUTSIDE RECORDS SUMMARY | 2022-07-29 11:09 | XMS_ITS | Encounter Summary ---
:1960 Author Organization [facility] Address [address] [place] [address] Care Team Providers Name Role Phone Cintia Cobb MD Primary Care Provider [phone] Encounter Details Date Type Department Care Team Description 08/16/2019 Lab Requisition [facility] Aureliano Munoz, Encounter for [address] Roach MD screening for [place], [place] [address] [facility] [address] tuberculosis [phone] [place] [address] Social History Tobacco Use Types Packs/Day Years [...] 08/04/2022 Appointment Orthopedics Delgado Gottlieb MD [address] [facility] [place] [place] [phone] (Gavi presley) 10/08/2022 Appointment Orthopedics Delgado Gottlieb MD [address] [facility] [place] [phone] (Gavi presley) 05/27/2023 Appointment Chemo Therapy/Infusion Services documented as of this encounter Procedures Procedure Name Priority Date/Time Associated Diagnosis Comme nts TB GOLD, QUANTIFERON Routine 08/17/2019 11:32 Encounter for Re sults for this AM [facility] screening for procedure are in respiratory the results tuberculosis section. documented in this encounter Results (ABNORMAL) TB Gold, QuantiFERON Plus (08/17/2019 11:32 AM [facility]) [facility] Method Time Signature TB Gold, Indeterminate Negative 08/19/2019 [facility] QuantiFeron (A) 2:32 PM [facility] Plus TB Nil Value 0.04 08/19/2019 [facility] 2:32 PM [facility] TB1 Minus Nil <0.01 08/19/2019 [facility] Value 2:32 PM [facility] TB2 Minus Nil <0.01 08/19/2019 [facility] Value 2:32 PM [facility] Mitogen Minus 0.39 08/19/2019 [facility] Nil Value 2:32 PM [facility] Specimen Anatomical Collection Method / Collection Time Recei shahid Time (Source) Location / Volume Laterality Blood Venipuncture / 08/17/2019 11:32 9 2:24 Unknown AM [facility] PM [facility] Narrative [facility] - 08/19/2019 2:32 P M [facility] Nil ?TB1-Nil ? TB2-Nil ?Mitogen-Nil ??Result ?Interpretation (IU/ml) ??(IU/mL) ? (IU/mL) ?(IU/mL) <=8.0 ? >=0.35 & ? Any ?Any ?Positive ?M. tuberculosis ?>=25% Nil ?infection likely <=8.0 ? Any ?>=0.35 & ? Any ?Positive ?M. tuberculosis ? >=25% Nil ? infection likely <=8.0 ? <0.35 or ? <0.35 or ? >=0.50 ? Negative ?M. tuberculosis ?>=0.35 & ? >=0.35 & ?infection NOT ?<25% Nil ? <25% Nil ?likely <=8.0 ? <0.35 or ? <0.35 or ? <0.50 ? Indeterminate ??M. tuberculosis ?>=0.35 & ? >=0.35 & ?infection cannot ?<25% Nil ? <25% Nil ?be determined >8.0 ?Any ?Any ?Any ? Indeterminate ??M. tuberculosis ? infection cannot ? be determined. Important: Diagnosing or excluding tuber culosis disease, and assessing the probability of LTBI, requires a combination of epidemiological, historical, medical, and diagnostic findings that should be lisa en into account when interpreting QFT-Pl us results. See general guidance on the diagnosis and treatment of TB disease and LTBI (https://www.cdc.gov/tb/publications/guidelines/default.htm). The magnitude of the measured IFN-gamma level cannot be correlated to stage or degree of infection, level of immune responsiveness, or likelihood for progression to active disease. A positive TB respons e in persons who are negative to Mitogen is rare, but has been seen in patients with TB disease. This indicates the IFN-gamma response to TB antigens is greater than that to Mitogen, which is possible a s the level of Mitogen does not maximall y stimulate IFN-gamma production by lymphocytes. Aureliano Munoz MD LAB_1 Performing Organization Address City/State/ZIP Code Phon e Number [facility] [address] [place] [address] documented in this encounter Visit Diagnoses Diagnosis Encounter for screening for respiratory tuberculosis Screening examination for pulmonary tube rculosis documented in this encounter Care Teams Plastics Worker Relationship Specialty Start Date End Date Cintia Cobb MD PCP - General Family Practice 09/30/21 documented as of this encounter
--- OUTSIDE RECORDS SUMMARY | 2022-07-29 11:09 | XMS_ITS | Encounter Summary ---
:1960 Author Organization [facility] Address [address] [place] [address] Care Team Providers Name Role Phone Ladan Song MD Primary Care Provider Unavailable Reason for Referral Procedure/Equipment (Routine) - Closed Specialty Diagnoses / Procedures Referred By Contact Refer red To Contact Diagnoses Spinal stenosis of lumbar region with neurogenic claudication Cesar Scherer MD Procedures CT Lumbar Spine Post Myelogram [address] [facility] [address] [place] [address] Referral ID Status Reason Start Date Expiration Date Visits Requ ested Visits Authorized [id number] Closed 03/12/2021 06/11/2022 1 1 Procedure/Equipment (Routine) - Incomplete Specialty Diagnoses / Procedures Referred By Contact Refer red To Contact Diagnoses Spinal stenosis of lumbar region with neurogenic claudication Cesar Scherer MD Procedures [place] Myelogram Lumbar Spine [address] [facility] [address] [place] [address] Referral ID Status Reason Start Date Expiration Date Visits V isits Requested Authorized [id number] Incomplete 03/12/2021 06/11/2022 1 1 Encounter Details Date Type Department Care Team Description 03/27/2021 Hospital Encounter [place] [address] [place] [address] Spinal stenosis of Center Procedural Edward Ardon MD [address] [place] [address] lumbar region with Area neurogenic [address] [place], [place] [id number] Social History Tobacco Use Types Packs/Day Years [...] Sign Reading Time Taken Comments Blood Pressure 146/81 03/27/2021 7:17 AM CDT Pulse 65 03/27/2021 7:17 AM CDT Temperature 36.8 ??C (98.2 ??F) 03/27/2021 7:17 AM CDT Respiratory Rate 16 03/27/2021 7:17 AM CDT Oxygen Saturation 98% 03/27/2021 7:17 AM CDT Inhaled Oxygen Concentration - - Weight - - Height - - Body Mass Index - - documented in this encounter Discharge Instructions Discharge InstructionsJoIvonne degroot RN - 03/27/2021 9:48 AM CDT Post myelogram instructions reviewed and sent home with Ed. documented in this encounter Medications at Time of Discharge Medication Sig Dispensed Refills Start Date End Date allopurinol (ZYLOPRIM) 1 10/28/2016 300 MG tablet B-D 3CC LUER-ARIES SYR USE DIRECTED FOR 12 2017 25GX5/8 25G X 5/8 3 CYANOCOBALAMIN ML INJECTION furosemide (LASIX) 40 3 10/28/2016 MG tablet omeprazole (PRILOSEC) Take 20 mg by mouth 05/28 20 MG capsule daily. Sennosides (SENOKOT OR) 0 acetaminophen (TYLENOL Take 650 mg by mouth 0 10/02/2021 ARTHRITIS PAIN) 650 MG every 8 hours as controlled release needed for Pain. tablet acetaminophen (TYLENOL) Take 1 Tab by mouth 100 Tab 11 08/201706/26/2021 500 MG tablet every 4 hours as needed for Pain (Mild Pain). Maximum acetaminophen dose is 4000 mg in 24 hours cyanocobalamin 3 10/28/2016 06/26/2021 (OOFKVGOQ08) 1000 MCG/ML injection DULoxetine (CYMBALTA) Take 20 mg by mouth 3 04/0306/26/2021 20 MG capsule two times a day. gabapentin (NEURONTIN) TAKE TWO TABLETS 3 018 06/26/2021 600 MG tablet 1200MG BY MOUTH THREE TIMES A DAY ibuprofen (MOTRIN) 200 Take 2 Tabs by mouth 100 Tab 0 08/201701/27/2022 MG tablet every 6 hours as needed for Pain (Mild Pain). This may be safely mixed with the prescription pain medications (oxycodone, hydrocodone or tramadol.)?? This may also be safely mixed with acetaminophen. naproxen (NAPROSYN) 500 TAKE ONE TABLET BY 0 03/0706/26/2021 MG tablet MOUTH 500MG TOTAL TWICE A DAY WITH MEALS FOR 10 DAYS predniSONE (DELTASONE) TAKE 2 TABLETS 40 MG 0 06/26/2021 20 MG tablet TOTAL BY MOUTH DAILY FOR 5 DAYS documented as of this encounter Progress Notes Ivonne Porter RN - 03/27/2021 10:09 AM CDT Patient very upset when I told him about the post procedure bedrest. He adamantly refused to stay that long because he has things to do. Dr. Soares informed of this. documented in this encounter Plan of Treatment Upcoming Encounters Date Type Specialty Care Team Description 08/04/2022 Appointment Orthopedics Delgado Gottlieb MD [address] [place] [phone] (Wo fernandez) 10/08/2022 Appointment Orthopedics Delgado Gottlieb MD [address] [place] [phone] (Wo rk) 05/27/2023 Appointment Chemo Therapy/Infusion Services documented as of this encounter Procedures Procedure Name Priority Date/Time Associated Diagnosis Comme nts CT LUMBAR SPINE Routine 03/27/2021 9:38 AM Spinal stenosis of Results for this POST MYELOGRAM CDT lumbar region with procedu re are in neurogenic the results claudication section. FL MYELOGRAM LUMBAR Routine 03/27/2021 9:19 AM Spinal stenosis of Results for this SPINE CDT lumbar region with procedure are in neurogenic the results claudication section. documented in this encounter Results CT Lumbar Spine Post [...] Following the procedure, the patient lef jana AMA from the postprocedural suite. Procedure Note [...] the postprocedural suite. Cesar Scherer MD RAD CO documented in this encounter Visit Diagnoses Diagnosis Spinal stenosis of lumbar region with ne urogenic claudication Spinal stenosis, lumbar region, with kaci rogenic claudication documented in this encounter Administered Medications Inactive Administered Medications - up to 3 most recent administrations Medication Order MAR Action Action Date Dose Rate Site iopamidol (ISOVUE-M 200) 41 % Given 03/27/2021 9:21 AM CDT 10 mL intrathecal injection 10 mL 10 mL, Intrathecal, ONCE, On Thu03/27/21 at 0945, For 1 dose, Radiology documented in this encounter Active and Recently Administered Medications Times are shown in CDT. Scheduled Medication Order 03/25/2021 03/26/2021 03/27/2021 iopamidol (ISOVUE-M 200) 41 % intrathecal injection 10 mL (COMPL ETED) 0921 (Given - Provider: Edna Vizcaino - Comment: [facility] [id number]) 10 mL, Intrathecal, ONCE, On Thu03/27/21 at 0945, For 1 dose, Ra diology documented in this encounter Care Teams Board Mixer Tender Relationship Specialty Start Date End Date Ladan Song MD PCP - General Internal Medicine 08/18/17 09/29/21 documented as of this encounter
--- OUTSIDE RECORDS SUMMARY | 2022-07-29 11:09 | XMS_ITS | Encounter Summary ---
:1960 Author Organization [facility] Address [address], [place] [address] Care Team Providers Name Role Phone Ladan Song MD Primary Care Provider Unavailable Reason for Visit Reason Comments Surgery Questions Schedule Surgery Encounter Details Date Type Department Care Team Description 07/24/2021 Telephone [facility] Csear Champagne Surgery Questions [address] [facility] MD Terri (Schedule Surgery) [place], [place] [address] [place] [phone] [place] [phone] Social History Tobacco Use Types Packs/Day [...] this encounter Nursing Notes Lesli Motley - 07/25/2021 12:50 PM CST Prior Authorization and Surgery Scheduling Information Surgery order and spine information sent to the [facility] for insurance approval and surgery scheduling. Once [facility] obtains approval from insurance they will contact the patient directly to schedule surgery. Mid Level Project Manager: [facility] Mid Level Project Manager (Eloy Thomas and Berto): Jackie [phone] Prior Authorization: [facility] Prior Auth Dept: Y[facility] [phone] Please note some authorizations can take up to 1-3 weeks depending on your insurance and the surgical procedure that was ordered. EMENT RIDE INSPECTOR Lesli Motley - 07/24/2021 10:52 AM CST Will need to obtain surgical surgery order/request and then submit for insurance approval before surgery can be booked. Didier, since Dr. Scherer is not in until 08/13 to complete, is this something youcan complete at your next clinic you are here at [facility]? EMENT RIDE INSPECTOR Davin Diggs - 07/24/2021 10:40 AM CST Has the patient recently had surgery or an injury? No How may we help you today? Pt would like a call back from AA Describe your symptoms/concerns: Pt is wanting to schedule his surgery. Please call to advise, When did the issue start: NA Have you been seen for this recently?: NA [[facility]: If yes, please include date and provider.] Is it okay to leave detailed message on your voicemail? No, he don't have VM, so keep trying till you get him. [[facility]: If this call is after 3 p.m., communicate to patient: If we are not able to get back to you by the end of the day and your symptoms worsen please contact the Careline] EMENT RIDE INSPECTOR documented in this encounter Plan of Treatment Upcoming Encounters Date Type Specialty Care Team Description 08/04/2022 Appointment Orthopedics Delgado Gottlieb MD [address] [place] [phone] (Wo rk) 10/08/2022 Appointment Orthopedics Delgado Gottlieb MD [address] [place] [phone] (Wo rk) 05/27/2023 Appointment Chemo Therapy/Infusion Services documented as of this encounter Visit Diagnoses Not on filedocumented in this encounter Care Teams Water Hauler Relationship Specialty Start Date End Date Ladan Song MD PCP - General Internal Medicine 08/18/17 09/29/21 documented as of this encounter
--- OUTSIDE RECORDS SUMMARY | 2022-07-29 11:09 | XMS_ITS | Encounter Summary ---
:1960 [facility] Address [address] [place] [address] Care Team Providers Name Role Phone Ladan Song MD Primary Care Provider Unavailable Reason for Visit Reason Comments Pre-procedure Call Encounter Details Date Type Department Care Team Description 06/20/2021 Telephone [facility] Rebecca Leiva RN Pre-procedure Call [address] [place], [place] [address] Social History Tobacco Use Types [...] Description 08/04/2022 Appointment Orthopedics Delgado Gottlieb MD [address] [place] [phone] (Gavi presley) 10/08/2022 Appointment Orthopedics Delgado Gottlieb MD [address] [place] [phone] (Gavi presley) 05/27/2023 Appointment Chemo Therapy/Infusion Services documented as of this encounter Visit Diagnoses Not on filedocumented in this encounter Care Teams Peoplesoft Programmer Relationship Specialty Start Date End Date Laadn Song MD PCP - General Internal Medicine 08/18/17 09/29/21 documented as of this encounter
--- OUTSIDE RECORDS SUMMARY | 2022-07-29 11:09 | XMS_ITS | Encounter Summary ---
:1960 Author Organization [facility] Address [address] [place] [address] Care Team Providers Name Role Phone Ladan Song MD Primary Care Provider Unavailable Reason for Visit Reason Comments Pre-procedure Call Encounter Details Date Type Department Care Team Description 01/09/2021 Telephone [facility] Luz Wei, Pre-procedure Call [address] [place], [place] [address] Social History Tobacco Use Types [...] Description 08/04/2022 Appointment Orthopedics Delgado Gottlieb MD [address] [place] [phone] (Gavi presley) 10/08/2022 Appointment Orthopedics Delgado Gottlieb MD [address] [place] [phone] (Gavi presley) 05/27/2023 Appointment Chemo Therapy/Infusion Services documented as of this encounter Visit Diagnoses Not on filedocumented in this encounter Care Teams Strategic Partner Development Manager Relationship Specialty Start Date End Date Ladan Song MD PCP - General Internal Medicine 08/18/17 09/29/21 documented as of this encounter
--- OUTSIDE RECORDS SUMMARY | 2022-07-29 11:09 | XMS_ITS | Encounter Summary ---
:1960 Author Organization [facility] Address [address] [place] [address] Care Team Providers Name Role Phone Ladan Song MD Primary Care Provider Unavailable Reason for Referral Procedure/Equipment (Routine) - Closed Specialty Diagnoses / Referred By Contact Referred To Contact Procedures Interventional Pain Mgmt Diagnoses Osteoarthritis of spine with radiculopathy, lumbar region (HRC) Everardo Scherer [facility] Procedures FL C Arm 20 Pain Management MD [address] [facility] [address] [facility] [address] [address] [place], [place] Phone: [phone] Referral ID Status Reason Start Date Expiration Date Visits Requ ested Visits Authorized [id number] Closed 05/14/2021 08/13/2022 1 1 Reason for Visit Reason Comments Follow Up Ct Results lumbar Encounter Details Date Type Department Care Team Description 05/14/2021 Office Visit YOU Scherer Osteoarthri tis of spine CENTER Everardo Murray MD with radiculopathy, [address] [facility] [address] lumbar region (Primary [place], [place] [address] [place] [address] Dx) [phone] [place] [address] Social History Tobacco Use Types [...] as of this encounter Patient Instructions Patient InstructionsSylvia Zheng CMA - 05/14/2021 3:[address] Everardo Scherer MD Orthopaedic Spine Surgery Medication Requests: Prescriptions are not filled on weekends or on weekdays after 3:00 PM documented in this encounter Progress Notes Everardo Scherer MD - 05/14/2021 12:00 AM CDT NAME: LAZ LUNA CSN: [id number] CLINIC NOTE DATE OF SERVICE: 05/14/2021 : 1960 Mr. Luna presents today in followup. His most recent injection was performed back January 15, 2021, which was short-term beneficial. Unfortunately, he has continued to have quite severe back pain as well as left greater than right lower extremity pain. He has had a CT myelogram and is here for review of this study. OBJECTIVE: On physical examination today, he does ambulate with a slow ned. Strength is symmetric without deficits quadriceps, hamstrings, tibialis anterior, EHL, gastrocsoleus, peroneals. Sensation grossly intact as well. His CT myelogram does confirm high-grade stenosis at L2-3, L3-4, previous decompression L4-5. ASSESSMENT: Spinal stenosis with neurogenic claudication. PLAN: An additional epidural injection centrally at L3-4. If this is short-term beneficial, then he does wish to proceed on with surgical management, which should include bilateral decompression L2-3, L3-4. Risks of surgical procedure were clearly identified including not limited to infection, dural laceration requiring repair, battered nerve root syndrome, failure of alleviation of symptoms, need for additional surgical management, epidural hematoma, increased spondylosis, any and all additional neurologic sequelae as well as general anesthetic risks. He does understand and wishes to proceed on asdescribed. He is to call if there are any additional questions or concerns. EVERARDO SCHERER MD JDS/AQS /[id number] documented in this encounter Plan of Treatment Upcoming Encounters Date Type Specialty Care Team Description 08/04/2022 Appointment Orthopedics Delgado Gottlieb MD [address] [place] [phone] (Wo rk) 10/08/2022 Appointment Orthopedics Delgado Gottlieb MD [address] [place] [phone] (Wo rk) 05/27/2023 Appointment Chemo Therapy/Infusion Services documented as of this encounter Results FL C Arm 20 Pain Management (06/26/2021 8:01 AM CDT) Anatomical Region Laterality Modality Radiographic Imaging Specimen (Source) Anatomical Location Collection Method / Collectio n Time Received Time / Laterality Volume Narrative 06/26/2021 8:07 AM CDT These images were obtained during a surg ical procedure. Everardo Scherer MD RAD [place] documented in this encounter Visit Diagnoses Diagnosis Osteoarthritis of spine with radiculopat hy, lumbar region (HRC) - Primary Lumbar radiculitis - Primary Thoracic or lumbosacral neuritis or radi culitis, unspecified Osteoarthritis of spine with radiculopat hy, lumbar region (HRC) documented in this encounter Care Teams Medical Billing Coder Relationship Specialty Start Date End Date Ladan Song MD PCP - General Internal Medicine 08/18/17 09/29/21 documented as of this encounter
--- OUTSIDE RECORDS SUMMARY | 2022-07-29 11:09 | XMS_ITS | Encounter Summary ---
:1960 Author Organization [facility] Address [address] [place] [address] Care Team Providers Name Role Phone Ladan Song MD Primary Care Provider Unavailable Reason for Visit Reason Comments CANCEL APPOINTMENT 04/19 due to provider emergen cy Encounter Details Date Type Department Care Team Description 04/19/2021 Telephone [facility] Freddy Delgado [facility] (04/19 due to provider [address] [facility] emergency) [place], [place] [address] [place], [place] [phone] (Wo rk) Social History Tobacco Use Types [...] as of this encounter Nursing Notes Mehreen Bolton RN - 04/24/2021 11:14 AM CDT Pt transferred from . Pt was upset about wait times and trouble getting in contact with this writer technical publications after missed calls from [facility]. Spoke with pt at length. Appt made at later afternoon time on 05/14/21 per pt request. Told pt because he is being overbooked into providers schedule he will most likely have to wait beyond his appt time depending how behind provider is in clinic. Pt stated understanding of this message. Mehreen Bolton RN - 04/24/2021 9:32 AM CDT Called pt to review provider message: Freddy Delgado PA-C to Lesli Motley ?? 5:23 PM Pt should see JDS as he will need to talk surgery at his next visit. I reviewed his CT scan, nothingurgent or dangerous. He does have stenosis worse at L3-4. Thanks, didier Called pt numbers on file. No answer at cell phone and no VM set up. Called home number listed whichwas his . Left message with for patient to call to change appt from 08/16 with Didier to 08/13with Dr. Scherer. CC when pt returns call may review message above from provider and assist in cancelling and scheduling appt with Dr. Scherer on 05/14/21 at 12:10pm ok per AA approval. Lesli Motley - 04/24/2021 8:20 AM CDT Spine nurse, are you able to reach out to this patient? He may have questions about the CT that I can't answer. Didier did review his CT to be sure there wasn't anything urgent. I can work him into Dr. Scherer's schedule on 05/14 at 12:10pm. That's the next day Dr. Scherer is back at [facility]. Lesli Motley - 04/19/2021 1:49 PM CDT Didier does not have any clinics that starts that early. 04/23 was offered earlier today but he had a schedule conflict. Didier, are you able to review your schedule and see if there's a work in we can offer? Please see my phone note from today regarding my interaction with the patient. He was scheduled today for CT results but had to cancel as you had to leave on an emergency. Darya Guerrero - 04/19/2021 1:04 PM CDT Patient is scheduled as follows but he would like to know if he can be seen sooner for a 7 730 am.Please call at [phone] Future Appointments Date Time Provider Department Center 05/17/2021 3:00 PM Freddy Delgado PA-C [facility] Lesli Motley - 04/19/2021 11:17 AM CDT Received an urgent message from Didier Delgado PA-C that he has to leave [facility] as he has a family emergency. Called patient to inform him of the situation and move his appt to 04/23 with Didier. Left a message on his home phone (priority) and then called his cell phone in another attempt to reach him. He answered his cell phone and I explained the situation. Patient was frustrated that we had to cancel hisappt as he took the afternoon off to attend. I apologized for the inconvenience and frustrations andoffered 04/23 in the AM to get him back in. He stated Thursday didn't work and became more agitated about the situation. I offered a phone visit to maybe offer more convenience and he stated I don't believe in calls! He asked to see Dr. Scherer and I told him I am happy to check his schedule but he's here every Thursday of the month so we'd be looking at Thursday again. He then expressed frustrations to me and asked why I couldn't have called him yesterday to inform him of this. I informed him this is an emergency situation so this was unknown as of yesterday as he just got the call now. I toldthe patient I am trying my best to help assist with rescheduling and unfortunately the emergency call was unplanned and phone disconnected on the patient's end. documented in this encounter Plan of Treatment Upcoming Encounters Date Type Specialty Care Team Description 08/04/2022 Appointment Orthopedics Delgado Gottlieb MD [address] [place], [place] [address] (Wo rk) 10/08/2022 Appointment Orthopedics Delgado Gottlieb MD [address] [place] [phone] (Wo rk) 05/27/2023 Appointment Chemo Therapy/Infusion Services documented as of this encounter Visit Diagnoses Not on filedocumented in this encounter Care Teams Grinding Wheel Dresser Relationship Specialty Start Date End Date Ladan Song MD PCP - General Internal Medicine 08/18/17 09/29/21 documented as of this encounter
--- OUTSIDE RECORDS SUMMARY | 2022-07-29 11:09 | XMS_ITS | Encounter Summary ---
:1960 [facility] Address [address], [place] [address] Care Team Providers Name Role Phone Ladan Song MD Primary Care Provider Unavailable Reason for Visit Reason Comments Post Visit Follow Up Phone Call Encounter Details Date Type Department Care Team Description 01/16/2021 Telephone [facility] Naima Narayan, Post Visit Follow Up [address] [facility] RN Phone Call [place], [place] [address] Social History Tobacco Use Types [...] 08/04/2022 Appointment Orthopedics Delgado Gottlieb MD [address] [place], [place] [address] (Gavi presley) 10/08/2022 Appointment Orthopedics Delgado Gottlieb MD [address] [place], [place] [address] (Gavi presley) 05/27/2023 Appointment Chemo Therapy/Infusion Services documented as of this encounter Visit Diagnoses Not on filedocumented in this encounter Care Teams Wet End Supervisor Relationship Specialty Start Date End Date Ladan Song MD PCP - General Internal Medicine 08/18/17 09/29/21 documented as of this encounter
--- OUTSIDE RECORDS SUMMARY | 2022-07-29 11:09 | XMS_ITS | Encounter Summary ---
:1960 Author Organization [facility] Address [address] [place] [address] Care Team Providers Name Role Phone Ladan Song MD Primary Care Provider Unavailable Reason for Visit Procedure/Equipment (Routine) - Incomplete Specialty Diagnoses / Procedures Referred By Contact Refer red To Contact Procedures Cesar Scherer MD Foreign Image(S) CT Hip Lt [address] [facility] [address] [place], [place] [phone] Referral ID Status Reason Start Date Expiration Date Visits V isits Requested Authorized [id number] Incomplete 12/07/2020 03/08/2022 1 1 Encounter Details Date Type Department Care Team Description 08/30/2020 Ancillary Procedure [facility] Radiology PACS [place] [address] [facility] [address] [place] [address] Social History Tobacco Use Types [...] 08/04/2022 Appointment Orthopedics Delgado Gottlieb MD [address] [place] [phone] (Wo rk) 10/08/2022 Appointment Orthopedics Delgado Gottlieb MD [address] [place], [place] [address] (Wo rk) 05/27/2023 Appointment Chemo Therapy/Infusion Services documented as of this encounter Procedures Procedure Name Priority Date/Time Associated Diagnosis Comme nts FOREIGN IMAGE(S) CT Routine 08/30/2020 12:05 AM R esults for this HIP LT WELDING PANTOGRAPH OPERATOR procedure are i n the results section. documented in this encounter Results Foreign Image(S) CT Hip Lt (08/30/2020 12:05 AM WELDING PANTOGRAPH OPERATOR) Specimen (Source) Anatomical Location Collection Method / Collectio n Time Received Time / Laterality Volume Narrative POCT - 12/07/2020 3:49 PM CDT These outside images have been uploaded into PACS. If the results were provided, they will be located in the sulema paula's chart under the Media or Imaging tab. Cesar Scherer MD RAD NON-REPORTABLES Performing Organization Address City/State/ZIP Code Phon e Number POCT documented in this encounter Visit Diagnoses Not on filedocumented in this encounter Care Teams Tool Design Draftsperson Relationship Specialty Start Date End Date Ladan Song MD PCP - General Internal Medicine 08/18/17 09/29/21 documented as of this encounter
--- OUTSIDE RECORDS SUMMARY | 2022-07-29 11:09 | XMS_ITS | Encounter Summary ---
:1960 Author Organization [facility] Address [address] [place] [address] Care Team Providers Name Role Phone Ladan Song MD Primary Care Provider Unavailable Reason for Referral (Routine) - Closed Specialty Diagnoses / Procedures Referred By Contact Refer red To Contact Diagnoses Spinal stenosis of lumbar region with neurogenic claudication Wellington Donaldson MD Procedures Dexamethasone Sodium Phos [address] [place] [address] [phone] Referral ID Status Reason Start Date Expiration Date Visits Requ ested Visits Authorized [id number] Closed 01/15/2021 04/16/2022 1 1 Reason for Visit Reason Comments Procedure Procedure/Equipment (Routine) - Incomplete Specialty Diagnoses / Procedures Referred By Contact Refer red To Contact Diagnoses Spinal stenosis of lumbar region with neurogenic claudication Cesar Scherer MD Procedures FL C Arm 20 Pain Management [address] [address] Referral ID Status Reason Start Date Expiration Date Visits V isits Requested Authorized [id number] Incomplete 12/25/2020 03/26/2022 1 1 Encounter Details Date Type Department Care Team Description 01/15/2021 Procedure Visit [facility] Cesar Scherer MD [address] [facility] [address] [place] [address] Procedure [address] [facility] Wellington Donaldson MD [address] [place] [address] [place], [place] [address] 1, Jean Jose Antonio Rn [phone] Social History Tobacco Use Types Packs/Day Years [...] Sign Reading Time Taken Comments Blood Pressure 134/67 01/15/2021 8:35 AM CDT Pulse 62 01/15/2021 8:35 AM CDT Temperature 36.3 ??C (97.3 ??F) 01/15/2021 7:30 AM CDT Respiratory Rate 18 01/15/2021 8:35 AM CDT Oxygen Saturation 98% 01/15/2021 8:35 AM CDT Inhaled Oxygen Concentration - - Weight 76.2 kg (168 lb) 01/15/2021 7:30 AM CDT Height 182.9 cm (6') 01/15/2021 7:30 AM CDT Body Mass Index 22.78 01/15/2021 7:30 AM CDT documented in this encounter Patient Instructions Patient InstructionsSnehal Goins RN - 01/15/2021 7:30 AM CDT FOLLOW UP PLAN: Please follow up with your referring provider, Dr. Scherer in 10-14 days. Please call [phone] to schedule an appointment if you do not already have one. Lumbar Epidural Injection Post-Procedure Instructions: ?? Rest today, you may resume your normal activities tomorrow (Physical Therapy & gericare aide teacher can also be resumed next day). ?? Refrain from driving until tomorrow (Local anesthetic near the spine has the potential to make you weak or slow your reaction time) ?? Apply ice to site (20 minutes on/ 20 minutes off) for the next 48 hours if you experience any soreness or pain. ?? No heat to site for next 48 hours (car seat warmers, heating pads, electric blankets, etc) ?? No tub baths, pools, hot tubs or lakes for 2 days. You may shower. ?? Resume your regular diet and medications ?? One or more band-aids have been applied to the injection site(s). Please leave on today; you may remove them in the morning. If they fall off, no need to replace. ?? After a few hours the numbing (anesthetic) will wear off and pain may return. It often takes about 3-10 days for the steroid to reach full effect, as a result you may not notice any significant decrease in pain for a week or more ?? If you experience shortness of breath, pain when breathing, or severe swelling, perineal numbness, loss of bowel or bladder control, or progressive extremity weakness that does not resolve in 6 hours notify the doctor. If it is after normal clinic hours (8a-4p), go to the nearest emergency room for evaluation. ?? You may experience the following symptoms which are NORMAL ?? up to 6 hours after your injection: ?? Warmth ?? Tingling ?? Heaviness ?? Numbness ?? Can last a day or 2 post injection ?? Flushing in face ?? Insomnia/difficulty sleeping ?? If the symptoms last more than 12 hours, call the doctor If you have a severe headache that goes away when lying down, this may be a spinal headache - thisis not an emergency, but please alert our team so we can help you manage it. This is uncommon. Dr. Wellington Donaldson MD Interventional Pain Physician and Anesthesiologist Please contact the Pain Nurse ([phone]) for all medical/procedural questions regarding your care at the [facility] Please contact our Traffic Court Referee ([phone]) for all administrative/scheduling questions related to the [facility] Medication Requests: ?? Prescriptions requiring refills must be requested from the prescribing physician. If Dr. Donaldson prescribed your medication, call the number above. If any other physician prescribed your medication,please contact his or her office to discuss. documented in this encounter Progress Notes Naima Narayan RN - 01/15/2021 7:30 AM CDT Patient here for L TFESI procedure. Patient rates pain in refused to describe pain. Verified NPO status. Pre-op teaching completed, patient verbalizes understanding. Confirmed pt has scoop driver home. Consent per MD. Snehal Goins RN - 01/15/2021 7:30 AM CDT Patient tolerated procedure well, vital signs stable. Post-procedure pain level ?/10 at rest, Refused to give a number said no such thing as numbers ?/10 with activity. He did state that his pain does feel better as DC time. Discharge instructions given (written & verbal review), patient verbalized understanding. Patient discharged to home at 835 via ambulatory with can with sig. other. documented in this encounter Procedure Notes Wellington Donaldson MD - 01/15/2021 7:30 AM CDT Procedure Note: Left Lumbar Transforaminal Epidural Steroid Injection under Fluoroscopy at levels L3/4 PREOPERATIVE DIAGNOSIS: ICD-10-CM 1. Spinal stenosis of lumbar region with neurogenic claudication M48.062 FL C Arm 20 Pain Management POSTOPERATIVE DIAGNOSIS: ICD-10-CM 1. Spinal stenosis of lumbar region with neurogenic claudication M48.062 FL C Arm 20 Pain Management Procedure Date: 01/15/2021 Interventionalist: Wellington Donaldson MD Patient: Laz Davilat 1960 INDICATIONS FOR PROCEDURE: This is a 60 y.o. year old male with a clinical picture consistent with the above-mentioned diagnosis, resulting in radicular pain to theLeft lower extremity. Images and Lab were reviewed in this patient. IV sedation - None TOTAL SEDATION TIME: 0 minutes. IV Fluids - None Needle Type: - 22-gauge 5 inch Quincke spinal needle Contrast Dye - 1.5 mls Isovue M200 dye (from a 10 ml vial) Injected Solution: 1 ml of PF 0.25% bupivacaine + 10 mg dexamethasone Additional Medications Administered: None Estimated Blood Loss - None Specimens Removed: None Urine Output - Not Measured Complications: None Outcome: Good VAS Before Injection: Patient refused to give pain scores VAS 10 minutes After Injection: He refused to give pain scores, but said he felt a little better. FLUOROSCOPY WAS USED. PROCEDURE AND FINDINGS: The patient was greeted in the pre procedure holding area. I discussed the risks of the procedure with the patient in-depth, which includes but not limited to bleeding, tissue damage, increased pain, no pain relief; side effects from the steroids such as hypertension, hyperglycemia, mood changes; rareside effects such as hematoma/bleeding, infection, strokes, anaphylaxis, permanent nerve injury, paralysis and loss of limb function. The risk, benefits and alternatives to the procedure were reviewed with the patient. The patient's / responsible libertarian's questions were answered. The patient / responsible libertarian appeared to understand and chose to proceed. Prior to the procedure a time out was completed , verifying correct patient, procedure, site, positioning, and implants and/or special equipment. The patient was taken to the procedure room and positioned prone on the fluoroscopy table. Then a cloth bleaching range tender film was taken to identify the correct level. The skin was prepped and draped in the usual sterile fashion. The overlying skin and subcutaneous tissue was anesthetized using a 25-gauge 1-1/2 inch needle with 1% preservative-free lidocaine for a total volume of 7 mls. Then the above noted Quincke spinal needle was advanced under fluoroscopic guidance using an obliqueview just inferior to the pedicle of the above stated level(s) on the above noted side. The fluoroscopy view was changed to the AP and lateral views and the needle position was confirmed to be within the foramen. Then the above noted contrast dye was injected under AP view at each level with live fluoro and confirmed adequate spread along the nerve root and in the epidural space. There was no evidence of intravascular uptake or intrathecal spread on imaging. A lateral view was also taken confirming adequate epidural spread. The final position of the needle(s) was identified using AP and lateral views. Paresthesias were not noted with final needle positioning. At this point, dexamethasone and bupivacaine solution was injected slowly (see above for amount). 0.5ml of 1% lidocaine was then injected to clear the extension tubing of the steroid solution, and the needle was removed. The needle insertion site was dressed appropriately. The patient was taken to the recovery room where he was monitored for a brief period of time. He tolerated the procedure well and was discharged home in stable condition with post procedural instructions. DISCUSSION: Today we performed a lumbar transforaminal epidural steroid injection. Conditions of the spine that result in spinal nerve root irritation such as disc protrusions, spinal stenosis, or post surgical radiculitis often respond favorably to transforaminal epidural steroid injections. The goal in performing a transforaminal epidural steroid injections is to provide relief from pain and permit greater function. The patient was informed that it may take several days for the steroid medication to reach its full efficacy and he should continue his regular pain medications as prescribed. The patient was advised to relax and avoid any heavy lifting or excessive bending for the rest of the day. He was advised that he may return to his usual activities tomorrow if he is otherwise feeling well. The patient was advised not to bathe or soak in water for 24 hours but that showering would be acceptable. The patient was instructed that if he experienced fever or chills, new weakness, new sensory changes, any changes in bowel or bladder habits, worsening back pain, new headache, neck stiffness, or othernew symptoms, that he should contact the pain clinic immediately or seek immediate medication attention if unable to reach the pain clinic. RECOMMENDATIONS: 1. We will plan to have the patient follow up in spine clinic for evaluation of today's procedure 2. Patient was advised not to drive for the remainder of the day. Wellington Donaldson M.D. documented in this encounter Plan of Treatment Upcoming Encounters Date Type Specialty Care Team Description 08/04/2022 Appointment Orthopedics Delgado Gottlieb MD [address] [place], [place] [address] (Gavi presley) 10/08/2022 Appointment Orthopedics Delgado Gottlieb MD [address] [place], [place] [address] (Gavi presley) 05/27/2023 Appointment Chemo Therapy/Infusion Services documented as of this encounter Procedures Procedure Name Priority Date/Time Associated Diagnosis Comme nts FL C ARM 20 PAIN Routine 01/15/2021 8:21 AM Spinal stenosis of Results for this MANAGEMENT CDT lumbar region with procedure are in neurogenic the results claudication section. documented in this encounter Results FL C Arm 20 Pain Management (01/15/2021 8:21 AM CDT) Anatomical Region Laterality Modality Radiographic Imaging Specimen (Source) Anatomical Location Collection Method / Collectio n Time Received Time / Laterality Volume Narrative 01/15/2021 8:21 AM CDT These images were obtained during a surg ical procedure. Cesar Scherer MD RAD FL documented in this encounter Visit Diagnoses Diagnosis Spinal stenosis of lumbar region with ne urogenic claudication Spinal stenosis, lumbar region, with kaci rogenic claudication documented in this encounter Care Teams Television Tube Inspector Relationship Specialty Start Date End Date Ladan Song MD PCP - General Internal Medicine 08/18/17 09/29/21 documented as of this encounter
--- OUTSIDE RECORDS SUMMARY | 2022-07-29 11:09 | XMS_ITS | Encounter Summary ---
:1960 [facility] Address [address] [place] [address] Care Team Providers Name Role Phone Ladan Song MD Primary Care Provider Unavailable Reason for Visit Reason Comments Post Visit Follow Up Phone Call Encounter Details Date Type Department Care Team Description 07/08/2018 Telephone [facility] Garth White RN Post Visit Follow Up [address] Phone Call [place], [place] [address] [place], [place] [phone] (Gavi presley) Social History Tobacco Use Types [...] 08/04/2022 Appointment Orthopedics Delgado Gottlieb MD [address] [place], [place] [address] (Gavi rk) 10/08/2022 Appointment Orthopedics Delgado Gottlieb MD [address] [place], [place] [address] (Gavi presley) 05/27/2023 Appointment Chemo Therapy/Infusion Services documented as of this encounter Visit Diagnoses Not on filedocumented in this encounter Care Teams Jinriksha Driver Relationship Specialty Start Date End Date Ladan Song MD PCP - General Internal Medicine 08/18/17 09/29/21 documented as of this encounter
--- OUTSIDE RECORDS SUMMARY | 2022-07-29 11:09 | XMS_ITS | Encounter Summary ---
:1960 Author [facility] Address [address] [place] [address] Care Team Providers Name Role Phone Ladan Song MD Primary Care Provider Unavailable Reason for Visit Reason Comments Surgery Questions Encounter Details Date Type Department Care Team Description 12/03/2020 Telephone [facility] Rudy Horton, Surgery Questions [address] [facility] [place], [place] [address] [address] [place] [address] [place] [address] (Wo rk) Social History Tobacco Use Types [...] as of this encounter Nursing Notes Yissel Moctezuma, RN - 12/04/2020 9:20 AM CDT Pt states that he had a recent Xray done at [facility] that shows ruptures at L3, L4 and L5 so thinks he needs surgery. Pt states that if the recovery time would be more than a month he would need to figure something out. Pt did not want to schedule an appt until he talked to someone to get details. As advised, patient scheduled for a surgical consult. Future Appointments Provider Department Center 12/25/2020 4:10 PM Cesar Scherer MD [facility] Advised patient to have his Xrays from [facility] released. Patient requesting to call phone if there is any earlier availability for cnsultation Nathalia Stokes RN - 12/04/2020 8:55 AM CDT Tried to reach patient, no answer, message of this wireless caller is not available please try again later. No VM option. Agreed with Isidra statement, depends largely on what surgery is being recommended for him. Should proceed with surgical consultation to discuss with surgeon. Lesli Motley - 12/04/2020 8:14 AM CDT Unfortunately without a surgical consult with surgery ordered this is hard to give any specific details as we don't know if a minimally invasive surgery will be ordered or a more invasive one such as afusion will be ordered. Will forward to nurse to address and hopefully answer some medical questionsabout recovery in general. Patient should set up an appointment if they want more specific details. Eli Mercado - 12/03/2020 4:51 PM CDT Has the patient recently had surgery or an injury? No How may we help you today? Pt is calling to ask how long he would be laid up for recovery after having back surgery. Describe your symptoms/concerns: Pt states that he had a recent Xray done at [facility] that shows ruptures at L3, L4 and L5 so thinks he needs surgery. Pt states that if the recovery time would be more thana month he would need to figure something out. Pt did not want to schedule an appt until he talked to someone to get details. Please call pt at [phone], no VM is available so hopefully he can takethe call when it comes through. When did the issue start: ongoing Have you been seen for this recently?: No Last saw Dr Wilson in 2018. [Weatherization Field Technician/Appt Center: If yes, please include date and provider.] Is it okay to leave detailed message on your voicemail? no [Weatherization Field Technician/Appt Center: If this call is after 3 p.m., communicate to patient: If we are not able to get back to you by the end of the day and your symptoms worsen please contact the Careline] documented in this encounter Plan of Treatment Upcoming Encounters Date Type Specialty Care Team Description 08/04/2022 Appointment Orthopedics Delgado Gottlieb MD [address] [place] [phone] (Gavi presley) 10/08/2022 Appointment Orthopedics Delgado Gottlieb MD [address] [place], [place] [address] (Gavi presley) 05/27/2023 Appointment Chemo Therapy/Infusion Services documented as of this encounter Visit Diagnoses Not on filedocumented in this encounter Care Teams Applied Psychology Professor Relationship Specialty Start Date End Date Ladan Song MD PCP - General Internal Medicine 08/18/17 09/29/21 documented as of this encounter
--- OUTSIDE RECORDS SUMMARY | 2022-07-29 11:09 | XMS_ITS | Encounter Summary ---
:1960 Author Organization [facility] Address [address] [place] [address] Care Team Providers Name Role Phone Ladan Song MD Primary Care Provider Unavailable Reason for Visit Reason Comments QUESTIONS, GENERAL Encounter Details Date Type Department Care Team Description 03/27/2021 Telephone [facility] Cesar Champagne, QUESTIONS, GENERAL [address] [facility] [place], [place] [address] [address] [phone] [place] [phone] (Wo rk) Social History Tobacco Use [...] encounter Nursing Notes Yissel Moctezuma RN - 03/28/2021 8:31 AM CDT Spoke with patient. Patient stated he had a CT myelogram at [facility] yesterday. Patient scheduled for follow-up Future Appointments Provider Department Center 04/19/2021 3:00 PM Freddy Delgado PA-C [facility] Patient continues to have low back pain with radiculopathy. Miguelina Faith - 03/27/2021 4:51 PM CDT Has the patient recently had surgery or an injury? No How may we help you today? Pt. would like call back from the care team. Describe your symptoms/concerns: pt stated that he still having back pain and would like to talk to care team. Please advise. When did the issue start: N/A Have you been seen for this recently?: N/A [Wood Experimental Mechanic/Appt Center: If yes, please include date and provider.] Is it okay to leave detailed message on your voicemail? No Pt. doesn't have voicemail. Try calling him back if he didn't answer. [Wood Experimental Mechanic/Appt Center: If this call is after 3 p.m., communicate to patient: If we are not able to get back to you by the end of the day and your symptoms worsen please contact the Careline] documented in this encounter Plan of Treatment Upcoming Encounters Date Type Specialty Care Team Description 08/04/2022 Appointment Orthopedics Delgado Gottlieb MD [address] [place] [phone] (Gavi presley) 10/08/2022 Appointment Orthopedics Delgado Gottlieb MD [address] [place], [place] [address] (Gavi presley) 05/27/2023 Appointment Chemo Therapy/Infusion Services documented as of this encounter Visit Diagnoses Not on filedocumented in this encounter Care Teams Mailing Machine Assistant Relationship Specialty Start Date End Date Ladan Song MD PCP - General Internal Medicine 08/18/17 09/29/21 documented as of this encounter
--- OUTSIDE RECORDS SUMMARY | 2022-07-29 11:09 | XMS_ITS | Encounter Summary ---
:1960 Author Organization [employer] Address [address] [place] [address] Care Team Providers Name Role Phone Ladan Song MD Primary Care Provider Unavailable Reason for Visit Reason Comments NURSE PREP FOR PROCEDURE Encounter Details Date Type Department Care Team Description 03/25/2021 Telephone [facility] Crystal Olsen, NURSE PREP FOR PROCEDURE [address] RN [place], [place] [address] Social History Tobacco Use Types Packs/Day Years [...] documented as of this encounter Nursing Notes Crystal Olsen, RN - 03/25/2021 9:05 AM CDT Patient called with instructions for Myelogram scheduled 03/27/2021 *Shrub Grower can park in the Blue [place]amp and bring in parking ticket OR boat driver can drop pt off at front door *Take elevator to 2nd floor [facility] to check in by 0730 (1 hour before exam) *Bring photo ID/insurance card/pharmacy card *NPO after midnight/ Water only up to 2 hours before procedure *If you have one, bring list of current medications/Take pain meds 4 hours prior to procedure time. (BP, Diabetes, Parkinson's, Inhalers, etc...) *Bring any completed forms given to you by your clinician's office *Leave jewelery & valuables at home *Need to have an Adult boat driver (No public transportation unless accompanied by responsible adult) *Need an adult at home with you for 12 hours after procedure (only if cervical). *Call [phone] if have questions documented in this encounter Plan of Treatment Upcoming Encounters Date Type Specialty Care Team Description 08/04/2022 Appointment Orthopedics Delgado Gottlieb MD [address] [place] [phone] (Gavi presley) 10/08/2022 Appointment Orthopedics Delgado Gottlieb MD [address] [place], [place] [address] (Gavi rk) 05/27/2023 Appointment Chemo Therapy/Infusion Services documented as of this encounter Visit Diagnoses Not on filedocumented in this encounter Care Teams Grease Remover Relationship Specialty Start Date End Date Ladan Song MD PCP - General Internal Medicine 08/18/17 09/29/21 documented as of this encounter
--- OUTSIDE RECORDS SUMMARY | 2022-07-29 11:09 | XMS_ITS | Encounter Summary ---
:1960 Author Organization [facility] Address [address] [place] [address] Care Team Providers Name Role Phone Ladan Song MD Primary Care Provider Unavailable Reason for Referral (Routine) - Closed Specialty Diagnoses / Procedures Referred By Contact Refer red To Contact Diagnoses Lumbar radiculopathy Juan Miguel Buckley MD Procedures Dexamethasone [address] [place] [address] [place] [address] 1 Referral ID Status Reason Start Date Expiration Date Visits Requ ested Visits Authorized [id number] Closed 07/07/2018 10/06/2019 1 1 Reason for Visit Reason Comments Procedure Procedure/Equipment (Routine) - Incomplete Specialty Diagnoses / Procedures Referred By Contact Refer red To Contact Diagnoses Low back pain, unspecified back pain laterality, unspecified chronicity, with sciatica presence unspecified (HRC) Giovanni Wilson MD Procedures FL C Arm 20 Pain Management [address] [place] [address] [place] [address] Referral ID Status Reason Start Date Expiration Date Visits V isits Requested Authorized [id number] Incomplete 06/07/2018 09/06/2019 1 1 Encounter Details Date Type Department Care Team Description 07/07/2018 Procedure Visit [facility] Giovanni Wilson MD [address] [facility] [place] [address] [place] [address] Juan Miguel Buckley MD [address] [place] [address] [place] [address] D[place] [address] 3, Jean Jose Antonio Martinez [phone] Social History Tobacco Use Types Packs/Day Years [...] Sign Reading Time Taken Comments Blood Pressure 125/74 07/07/2018 9:24 AM CDT Pulse 62 07/07/2018 9:24 AM CDT Temperature 37 ??C (98.6 ??F) 07/07/2018 8:39 AM CDT Respiratory Rate 18 07/07/2018 9:24 AM CDT Oxygen Saturation 99% 07/07/2018 9:24 AM CDT Inhaled Oxygen Concentration - - Weight 79.4 kg (175 lb 0.7 oz) 07/07/2018 8:39 AM CDT Height 183 cm (6' 0.05) 07/07/2018 8:39 AM CDT Body Mass Index 23.71 07/07/2018 8:39 AM CDT documented in this encounter Patient Instructions Patient InstructionsDeSnehal menjivar RN - 07/07/2018 8:30 AM CDT FOLLOW UP PLAN: Please follow up with Dr. Jamal Wilson in 10-14 days; call [phone] to schedule an appointment if you do not already have one. Lumbar Epidural Injection Post-Procedure Instructions: ?? Rest today, you may resume your normal activities tomorrow (Physical Therapy & student career development specialist can also be resumed next day). ?? [...] you manage it. This is uncommon. Dr. Juan Miguel Buckley MD Interventional Pain Physician and Anesthesiologist Please contact the Pain Nurse ([phone]) for all medical/procedural questions regarding your care at the [facility] Please contact our Podiatric Physician ([phone]) for all administrative/scheduling questions related to the [facility] Medication Requests: Prescriptions requiring refills must be requested from the prescribing physician. If Dr. Buckley prescribed your medication, call the number above. If any other physician prescribed your medication, please contact his or her office to discuss. documented in this encounter Progress Notes Diane, Ivonne L, RN - 07/07/2018 8:30 AM CDT Patient here for LESI procedure. Patient rates pain in back, 5/10 at rest, 5/10 with activity. Verified NPO status. Pre-op teaching completed, patient verbalizes understanding. 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 Consent per MD. Snehal Goins RN - 07/07/2018 8:30 AM CDT Patient tolerated procedure well, vital signs stable. Post-procedure pain level 1/10 at rest, 1/10 with activity. Discharge instructions given (written & verbal review), patient verbalized understanding. Patient discharged to home at 930am via ambulatory with sig other. documented in this encounter Procedure Notes Juan Miguel Buckley MD - 07/07/2018 8:30 AM CDT Procedure Note Lumbar Transforaminal Epidural Steroid Injection under Flouro Procedure Date: 07/07/2018 Patient: Laz Luna 1960 PREOPERATIVE DIAGNOSIS: Lumbar Radicular Pain POSTOPERATIVE DIAGNOSIS: Lumbar Radicular Pain OPERATION PERFORMED: Left Lumbar Transforaminal Epidural Steroid Injection at levels: L3/4 Interventionalist: Juan Miguel Buckley MD Sedation was not used ESTIMATED BLOOD LOSS: None FLUIDS: 0 mL FLUOROSCOPY WAS USED. TOTAL SEDATION TIME: 0 minutes. INDICATIONS FOR PROCEDURE: This is a 58 y.o. year old male with a clinical picture consistent with the above-mentioned diagnosis, resulting in radicular pain to the Left lower extremity as confirmed on clinical exam and imaging studies. Pain has been refractory to conservative therapy. PROCEDURE AND FINDINGS: The patient was greeted in the pre procedure holding area. The risk, benefits and alternatives to the procedure were again reviewed with the patient and written informed consent was placed in the chart. Prior to the procedure a time out was completed, verifying correct patient, procedure, site, positioning, and implants and/or special equipment. The patient was taken to the procedure room and positioned prone on the fluoroscopy table. Then a machines technician film was taken to identify the correct level. The skin was prepped and draped in the usual sterile fashion. The overlying skin and subcutaneous tissue was anesthetized using a 25-gauge 1-1/2 inch needle with 1% preservative-free lidocaine for a total volume of 2 mls. Then a 22-gauge 3.5 inch Quincke spinal needle was advanced under fluoroscopic guidance using an oblique view just inferior to the pedicle of the L3 level to the laterality mentioned above. The fluoroscopy view was changed to the AP and lateral views and the needle position was confirmed to be within the foramen. I then attached a flushed 20-inch length of low-volume microbore tubing to the needle hub to minimize any further needle movement or introduction of air. Then 1 mls of Isovue-M 200 dye froma 10cc vial was injected under AP view at each level with DSA and confirmed adequate spread along the nerve root and in the epidural space. There was no evidence of intravascular uptake or intrathecal s pread on imaging. A lateral view was also taken confirming adequate epidural spread. At this point, 10 mg of dexamethasone was injected along with 2.0 mls of 0.25% bupivacaine per level. The needle was then re-styletted and removed. The needle insertion site was dressed appropriately. The patient was carefully escorted to the recovery room where they were monitored for a brief periodof time. The patient tolerated the procedure well and was discharged home, with a fork truck driver, in stable condition with post procedural instructions. Prior to the procedure, the patient reported a pain score of 5/10 at rest and 5/10 with activity. Shortly before discharge, we noted a pain score of 1/10 at rest and 1/10 with activity. Follow-up will be Clinic Visit with Dr. Wilson, per pertinent documentation. COMPLICATIONS: None documented in this encounter Plan of Treatment Upcoming Encounters Date Type Specialty Care Team Description 08/04/2022 Appointment Orthopedics Delgado Gottlieb MD [address] [place], [place] [address] (Wo rk) 10/08/2022 Appointment Orthopedics Delgado Gottlieb MD [address] [place], [place] [address] (Wo rk) 05/27/2023 Appointment Chemo Therapy/Infusion Services documented as of this encounter Procedures Procedure Name Priority Date/Time Associated Diagnosis Comme nts FL C ARM 20 PAIN Routine 07/07/2018 9:13 AM Low back pain, Res ults for this MANAGEMENT CDT unspecified back procedure a re in pain laterality, the results unspecified section. chronicity, with sciatica presence unspecified (HRC) documented in this encounter Results FL C Arm 20 Pain Management (07/07/2018 9:13 AM CDT) Anatomical Region Laterality Modality Radiographic Imaging Specimen (Source) Anatomical Location Collection Method / Collectio n Time Received Time / Laterality Volume Narrative 07/07/2018 9:16 AM CDT Images obtained during surgical procedure. Gioavnni Wilson MD RAD FL documented in this encounter Visit Diagnoses Diagnosis Lumbar radiculopathy - Primary Thoracic or lumbosacral neuritis or radi culitis, unspecified Low back pain, unspecified back pain lat erality, unspecified chronicity, with sciatica presence unspecified (HRC) documented in this encounter Care Teams Science Analyst Relationship Specialty Start Date End Date Ladan Song MD PCP - General Internal Medicine 08/18/17 09/29/21 documented as of this encounter
--- OUTSIDE RECORDS SUMMARY | 2022-07-29 11:09 | XMS_ITS | Encounter Summary ---
:1960 Author Organization [facility] Address [address], [place] [address] Care Team Providers Name Role Phone Ladan Song MD Primary Care Provider Unavailable Reason for Visit Reason Comments Orders Needed Encounter Details Date Type Department Care Team Description 04/10/2020 Telephone [facility] Giovanni Granger MD Orders Needed [address] [facility] [address] [facility] [place] [address] [place] [address] [phone] (Wo rk) Social History Tobacco Use Types [...] encounter Nursing Notes Nathalia Stokes RN - 04/11/2020 4:00 PM CDT Order sent to [facility]. Left VM for patient regarding this and [facility] number to call to schedule. Radha Solo - 04/11/2020 3:40 PM CDT [facility] has not received referral can this be faxed over- patient is anxious to receive injection Evelyne Brunner - 04/11/2020 3:13 PM CDT Patient looking to get his ERIN completed tomorrow, hoping [facility] has an opening. Could an order be sentover? Mehreen Bolton RN - 04/10/2020 2:19 PM CDT Images from the original note were not included. Giovanni Wilson MD to Nathalia Stokes RN ?? 04/10/20 1:24 PM OK to do repeat inj again Order placed. Pt notified who answred his phone. Told pain clinic will call to schedule and recommended making a f/u appt with Dr. Wilson 2 weeks post injection. Asked about getting injection this week and advised will need to speak with dough raiser. Eli Mercado - 04/10/2020 11:42 AM CDT Patient's called back. Pt had 100% relief from the injection 2 yrs ago and is experiencing the same pain as before--when laying flat, pain is at it's worst. Mehreen Bolton RN - 04/10/2020 10:31 AM CDT FARHAN with Dr. Cruz on 07/22/2018: ler note: He can call in to our nurse number to once again arrange for a repeat lumbar epidural. We would order it once again as a left L3-4 injection, but with an additional note that Dr. Buckley can use his discretion if he feels a different approach would be better the 2nd time around. Last injection on 07/07/2018: Left Lumbar Transforaminal Epidural Steroid Injection at levels: L3/4 Called pt to review. No answer (LVM to call back with how effective last injection was, % of relief 0-100, and if pain is the same this time around - CC please address when pt returns call). Pt has f/u scheduled for 04/26/2020. Routing to provider to approve or advise on repeat injection since it has been over x1 year, or if pt will need to wait until f/u appt. Margaret Izquierdo - 04/10/2020 9:20 AM CDT Has the patient recently had surgery or an injury? No What referral/order is being requested: injection Why is the referral/order needed: Back Is it okay to leave detailed message on your voicemail? Yes. Patient states that they would like to have this done on afternoon if possible; they have the day off to attend a in the morning. [Emergency Room Orderly/Appt Center: If this call is after 3 p.m., communicate to patient: If we are not able to get back to you by the end of the day and your symptoms worsen please contact the Careline] [Emergency Room Orderly: Please inform patient that a referral does not guarantee insurance coverage. Patients should call the member services number on the back of their insurance ID card to understand whatcoverage for the services they are requesting.] documented in this encounter Plan of Treatment Upcoming Encounters Date Type Specialty Care Team Description 08/04/2022 Appointment Orthopedics Delgado Gottlieb MD [address] [place], [place] [address] (Gavi presley) 10/08/2022 Appointment Orthopedics Delgado Gottlieb MD [address] [place], [place] [address] (Gavi presley) 05/27/2023 Appointment Chemo Therapy/Infusion Services documented as of this encounter Visit Diagnoses Diagnosis Other intervertebral disc displacement, lumbar region (HRC) - Primary Displacement of lumbar intervertebral di sc (HRC) Displacement of lumbar intervertebral di sc without myelopathy documented in this encounter Care Teams Cardiology Clinical Nurse Specialist Relationship Specialty Start Date End Date Ladan Song MD PCP - General Internal Medicine 08/18/17 09/29/21 documented as of this encounter
--- OUTSIDE RECORDS SUMMARY | 2022-07-29 11:09 | XMS_ITS | Encounter Summary ---
:1960 Author Organization [facility] Address [address] [address] Care Team Providers Name Role Phone Ladan Song MD Primary Care Provider Unavailable Reason for Visit Reason Comments Other Scheduled ILESI Encounter Details Date Type Department Care Team Description 06/06/2021 Telephone [facility] Juan Miguel Buckley MD Other (Scheduled ILESI [address] [facility] [address] [facility] ) [place], [place] [address] [place], [place] [phone] (Wo rk) Social History Tobacco Use Types [...] documented as of this encounter Nursing Notes Lizeth Valentino RN - 06/07/2021 1:39 PM CDT Left message for Ed regarding upcoming injection scheduled 06-26-21, reiterated our policy regardingrequirement for dedicated local truck driver home after injection and NPO two hours prior to procedure. Asked Ed to returnour call if he is unable or unwilling to comply and injection order could then be sent to other medical facility. If he does not return our call, we will call patient prior to injection with procedure instructions. Evelyne Brunner - 06/06/2021 11:23 AM CDT Ed called to schedule his lumbar ILESI. Patient was difficult while scheduling, and does not agree with anything Tria says. Ed was very upset that we do not offer same day spinal procedures and that we have prep instructions for our visits. Ed says his [facility] does not require this nor did his myelogram so why should he for this. Ed also says he will not need a dedicated local truck driver for his ILESI on 06/26/21 and will not be following the NPO instructions as he knows his body, we do not. Patient adamantly declines the pre call as he does not need to know that garage and he does not want to sit around with my finger up my bum all day andwill be returning to work same day. 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 documented in this encounter Plan of Treatment Upcoming Encounters Date Type Specialty Care Team Description 08/04/2022 Appointment Orthopedics Delgado Gottlieb MD [address] [place] [phone] (Gavi presley) 10/08/2022 Appointment Orthopedics Delgado Gottlieb MD [address] [place], [place] [address] (Gavi presley) 05/27/2023 Appointment Chemo Therapy/Infusion Services documented as of this encounter Visit Diagnoses Not on filedocumented in this encounter Care Teams Assault Boat Coxswain Relationship Specialty Start Date End Date Ladan Song MD PCP - General Internal Medicine 08/18/17 09/29/21 documented as of this encounter
--- OUTSIDE RECORDS SUMMARY | 2022-07-29 11:09 | XMS_ITS | Encounter Summary ---
:1960 Author Organization Formerly [facility] Address [address] [place] [address] Care Team Providers Name Role Phone Ladan Song MD Primary Care Provider Unavailable Reason for Referral Procedure/Equipment (Routine) - Incomplete Specialty Diagnoses / Procedures Referred By Contact Refer red To Contact Diagnoses Spinal stenosis of lumbar region with neurogenic claudication Everardo Scherer MD Procedures FL C Arm 20 Pain Management [address] [phone] Referral ID Status Reason Start Date Expiration Date Visits V isits Requested Authorized [id number] Incomplete 12/25/2020 03/26/2022 1 1 Reason for Visit Reason Comments Back Problem Low back Left leg pain Consult/Transfer Care (Routine) - Closed Specialty Diagnoses / Procedures Referred By Contact Refer red To Contact Orthopedics Diagnoses Low back pain (HRC) Spondylosis without myelopathy or radiculopathy, lumbar region (HRC) Radiculopathy, lumbar region Christian Gonzalez II [facility] [address] [place] [phone] Referral ID Status Reason Start Date Expiration Date Visits Requ ested Visits Authorized [id number] Closed 12/05/2020 03/06/2022 1 1 Encounter Details Date Type Department Care Team Description 12/25/2020 Office Visit Everardo Reynolds Spinal stenosis of CENTER MD Terri lumbar region with [address] [facility] [address] neurogenic claudication [place], [place] [address] [address] (Primary Dx) [phone] [place] [address] Social History Tobacco Use Types [...] - Inhaled Oxygen Concentration - - Weight 77.1 kg (170 lb) 12/25/2020 4:35 PM CDT Height 182.9 cm (6') 12/25/2020 4:35 PM CDT Body Mass Index 23.06 12/25/2020 4:35 PM CDT documented in this encounter Progress Notes Freddy Gao PA-C - 12/25/2020 12:00 AM CDT CARLYLENOEMÍ CSN: [id number] CLINIC NOTE DATE OF SERVICE: 12/25/2020 : 1960 CHIEF COMPLAINT: Mr. Luna presents with a chief complaint of left lower extremity radiculopathy. HPI: Mr. Luna is a pleasant 60-year-old male who presents today for evaluation in regard to the symptoms that have been ongoing really dating back to fall that left him with a left hip fracture in August of 2019. He thought it was complications due to his hip. Fortunately for him, his hip has been thoroughly evaluated, and his orthopedic PA recommended he get a scan of his low back. He was diagnosed with significant stenosis of the lumbar spine and was sent to us via referral in regard to recommendations moving forward. He describes some back pain, but pertinently pain that runs through the anterior thigh of the left lower extremity and occasionally on the right. Worse with standing, walking, bending, lifting, twisting, sitting, and lying down. Really describes it as a constant pain, not much at this point relieves it either. He did have an injection in April of 2020 at L3-4. He has attempted physical therapy. Otherwise, health has been stable. PAST MEDICAL HISTORY: Significant for bariatric surgery. He also has a pacemaker that was implanted in 2017. PAST SURGICAL HISTORY: He has had bariatric surgery in 2014, elbow surgery and L4-5 decompression in 1988, pacemaker implantation in 2016, and a fractured hip repair in 2018. CURRENT MEDICATIONS: Reviewed in Epic. ALLERGIES: CIPRO AND THE FLU SHOT. FAMILY HISTORY: Noncontributory in regard to spine pathology. 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 He has worked for [employer] since 1952. Lives at home with his . Denies smoking or tobacco use. He cannot exercise due to his pain. Denies consumption of alcohol. REVIEW OF SYSTEMS: A 13-point review of system was undertaken by myself, discussed with the patient, and found to be negative unless otherwise stated in the HPI. PHYSICAL EXAM: On physical examination today, Mr. Luna ambulates with a slower ned, but nonmyelopathic. Slightly antalgic, favoring his left lower extremity. In the seated position, motor strength testing of the lower extremities reveals 5/5 strength with symmetric L2-S1 bilaterally. Sensation grossly intact to the bilateral extremities to light touch. Straight leg raise is negative bilaterally. Hip range of motion nonpainful to internal external and rotation bilaterally. IMAGING STUDIES: View of the CT scan of Mr. Luna's lumbar spine is available for review. [employer] PACS system does reveal significant spinal stenosis at L3-4 as well as severe foraminal stenosis on the left at L4-5 and L5-S1. ASSESSMENT: 1. Spinal stenosis. 2. Back and left leg pain. PLAN: At this point, Dr. Scherer along [...] the meantime with further questions or concerns. FREDDY GAO PA-C Staff: EVERARDO SCHERER MD JCANDELARIO/JOSEPH /[id number] documented in this encounter Plan of Treatment Upcoming Encounters Date Type Specialty Care Team Description 08/04/2022 Appointment Orthopedics Delgado Gottlieb MD [address] [place] [phone] (Wo rk) 10/08/2022 Appointment Orthopedics Delgado Gottlieb MD [address] [place] [phone] (Gavi presley) 05/27/2023 Appointment Chemo [...] stenosis, lumbar region, with kaci rogenic claudication Spinal stenosis of lumbar region with ne urogenic claudication Spinal stenosis, lumbar region, with kaci rogenic claudication documented in this encounter Care Teams Classroom Instructional Aide Relationship Specialty Start Date End Date Ladan Song MD PCP - General Internal Medicine 08/18/17 09/29/21 documented as of this encounter
--- OUTSIDE RECORDS SUMMARY | 2022-07-29 11:09 | XMS_ITS | Encounter Summary ---
:1960 Author Organization [email or web address] Address [address] [place] [address] Care Team Providers Name Role Phone Ladan Song MD Primary Care Provider Unavailable Reason for Visit (Routine) - Incomplete Specialty Diagnoses / Procedures Referred By Contact Refer red To Contact Procedures Cesar Scherer MD Foreign Image(s) CT L-Spine [address] W/WO IV Cont [place], [place] [phone] Referral ID Status Reason Start Date Expiration Date Visits V isits Requested Authorized [id number] Incomplete 12/07/2020 03/08/2022 1 1 Encounter Details Date Type Department Care Team Description 08/30/2020 Ancillary Procedure [facility]iology PACS [place] [address] [place] [address] Social History Tobacco Use Types [...] Description 08/04/2022 Appointment Orthopedics Delgado Gottlieb MD [address] [place] [address] [place] [phone] (Gavi rk) 10/08/2022 Appointment Orthopedics Delgado Gottlieb MD [address] [place], [place] [address] (Gavi rk) 05/27/2023 Appointment Chemo Therapy/Infusion Services documented as of this encounter Procedures Procedure Name Priority Date/Time Associated Diagnosis Comme nts FOREIGN IMAGE(S) CT Routine 08/30/2020 12:00 AM R esults for this L-SPINE W/WO IV SPECIAL EDUCATION COORDINATOR procedure ar e in CONT the results section. documented in this encounter Results Foreign Image(s) CT L-Spine W/WO IV Cont (08/30/2020 12:00 AM SPECIAL EDUCATION COORDINATOR) Specimen (Source) Anatomical Location Collection Method / Collectio n Time Received Time / Laterality Volume Narrative POCT - 12/07/2020 3:41 PM CDT These outside images have been uploaded into PACS. If the results were provided, they will be located in the sulema paula's chart under the Media or Imaging tab. Cesar Scherer MD RAD NON-REPORTABLES Performing Organization Address City/State/ZIP Code Phon e Number POCT documented in this encounter Visit Diagnoses Not on filedocumented in this encounter Care Teams A Auxiliary Relationship Specialty Start Date End Date Ladan Song MD PCP - General Internal Medicine 08/18/17 09/29/21 documented as of this encounter
--- OUTSIDE RECORDS SUMMARY | 2022-07-29 11:09 | XMS_ITS | Encounter Summary ---
:1960 Author Organization [facility] Address [address] [place] [address] Care Team Providers Name Role Phone Ladan Song MD Primary Care Provider Unavailable Reason for Visit Reason Comments QUESTIONS, GENERAL Surgery scheduling Encounter Details Date Type Department Care Team Description 07/29/2021 Telephone [facility] Cesar Champagne QUESTIONS, GENERAL [address] [facility] MD Terri (Surgery scheduling) [place] [phone] [place] [phone] [place] [phone] Social History Tobacco Use Types Packs/Day [...] encounter Nursing Notes Nathalia Stokes RN - 07/29/2021 4:20 PM CST Left regarding surgery locations that Dr. Scherer performs surgery at may further discuss with his museum service scheduler Jackie as well (phone number left in ). K TOP SPREADER MACHINE OPERATOR Mandy Hinojosa - 07/29/2021 4:08 PM CST Use home number on file, it is his 's. His number doesn't have voicemail but hers does. K TOP SPREADER MACHINE OPERATOR Mandy Hinojosa - 07/29/2021 4:05 PM CST Patient was calling to talk about surgery scheduling. Aviation Safety Officer let him know order was being sent for authorization and that a nursing scheduler would be reaching out to him (see messages below). He wouldlike to have surgery done in [place] or somewhere close. Please reach out to patient to give him an update. K TOP SPREADER MACHINE OPERATOR documented in this encounter Plan of Treatment Upcoming Encounters Date Type Specialty Care Team Description 08/04/2022 Appointment Orthopedics Delgado Gottlieb MD [address] [place] [phone] (Gavi presley) 10/08/2022 Appointment Orthopedics Delgado Gottlieb MD [address] [place] [phone] (Gavi presley) 05/27/2023 Appointment Chemo Therapy/Infusion Services documented as of this encounter Visit Diagnoses Not on filedocumented in this encounter Care Teams Lamp Tester And Inspector Relationship Specialty Start Date End Date Ladan Song MD PCP - General Internal Medicine 08/18/17 09/29/21 documented as of this encounter
--- OUTSIDE RECORDS SUMMARY | 2022-07-29 11:09 | XMS_ITS | Encounter Summary ---
:1960 Author Organization [facility] Address [address] [place] [address] Care Team Providers Name Role Phone Ladan Song MD Primary Care Provider Unavailable Reason for Referral (Routine) - New Request Specialty Diagnoses / Procedures Referred By Contact Refer red To Contact Diagnoses Lumbar radiculitis Juan Miguel Buckley MD Procedures [facility] [address] [place] [address] 1 Referral ID Status Reason Start Date Expiration Date Visits V isits Requested Authorized [id number] New Request 06/26/2021 09/25/2022 1 1 Reason for Visit Reason Comments Procedure Procedure/Equipment (Routine) - Closed Specialty Diagnoses / Referred By Contact Referred To Contact Procedures Interventional Pain Mgmt Diagnoses Osteoarthritis of spine with radiculopathy, lumbar region (HRC) Cesar Scherer, [facility] Procedures FL C Arm 20 Pain Management [address] [facility] [address] [place] [phone] [place], [place] Phone: [phone] Referral ID Status Reason Start Date Expiration Date Visits Requ ested Visits Authorized [id number] Closed 05/14/2021 08/13/2022 1 1 Encounter Details Date Type Department Care Team Description 06/26/2021 Procedure Visit [facility] Cesar Scherer MD [address] [facility] [address] [place] [phone] Procedure [address] [facility] [address] Juan Miguel Buckley MD [address] [facility] D[place] [id number] [place] [address] 1 1, Jean Brady Rn [phone] Social History Tobacco Use Types Packs/Day Years [...] Reading Time Taken Comments Blood Pressure 126/78 06/26/2021 8:16 AM CDT Pulse 73 06/26/2021 8:16 AM CDT Temperature 36.2 ??C (97.2 ??F) 06/26/2021 7:37 AM CDT Respiratory Rate 18 06/26/2021 8:16 AM CDT Oxygen Saturation 100% 06/26/2021 8:16 AM CDT Inhaled Oxygen Concentration - - Weight 81.6 kg (180 lb) 06/26/2021 7:37 AM CDT Height 182.9 cm (6') 06/26/2021 7:37 AM CDT Body Mass Index 24.41 06/26/2021 7:37 AM CDT documented in this encounter Patient Instructions Patient InstructionsSaLizeth linn RN - 06/26/2021 7:30 AM CDT FOLLOW UP PLAN: Please follow up with your referring provider, Dr. Scherer in 10-14 days. Please call [phone] to schedule an appointment if you do not already have one. Lumbar Epidural Injection Post-Procedure Instructions: ?? Rest today, you may resume your normal activities tomorrow (Physical Therapy & certified caregiver can also be resumed next day). ?? [...] and Anesthesiologist Please contact the Pain Nurse ([phone]) for all medical/procedural questions regarding your care at the [facility] Please contact our Therapeutic Assistant ([phone]) for all administrative/scheduling questions related to the [facility] Medication Requests: Prescriptions requiring refills must be requested from the prescribing physician. If Dr. Buckley prescribed your medication, call the number above. If any other physician prescribed your medication, please contact his or her office to discuss. documented in this encounter Progress Notes Lizeth Valentino RN - 06/26/2021 7:30 AM CDT Patient here for ILESI procedure. Patient rates pain in low back, left leg, 0/10 at rest, 10/10 withactivity. Verified NPO status. Pre-op teaching completed, patient verbalizes understanding. Confirmed pt has class b driver home. Consent per MD. Rebecca Leiva RN - 06/26/2021 7:30 AM CDT Patient tolerated procedure well, vital signs stable. Post-procedure pain level 0/10 at rest, 0/10 with activity. Discharge instructions given (written & verbal review), patient verbalized understanding. Patient discharged to home at 0820 via ambulatory with class b driver. documented in this encounter Procedure Notes Juan Miguel Buckley MD - 06/26/2021 7:30 AM CDT Procedure Note Lumbar Interlaminar ERIN Procedure Date: 06/26/2021 [facility] Date of : 1960 Interventionalist: Juan Miguel Buckley MD PREOPERATIVE DIAGNOSIS: Lumbar Radicular Pain POSTOPERATIVE DIAGNOSIS: Lumbar Radicular Pain OPERATION PERFORMED: Interlaminar Epidural Steroid Injection at the L3/4 level Sedation was not used. ESTIMATED BLOOD LOSS: None FLUIDS: 0 mL FLUOROSCOPY WAS USED. TOTAL SEDATION TIME: 0 minutes. INDICATIONS FOR PROCEDURE: This is a 61 y.o. year old male with a clinical picture consistent with the above-mentioned diagnosis, resulting in radicular pain to the Bilateral lower extremity(ies) as confirmed on clinical exam and imaging [...] prone on the fluoroscopy table. Then a snowmobile mechanic film was taken to identify the correct level. The skin was prepped and draped in the usual sterile fashion. The overlying skin and subcutaneous tissue was anesthetized using a 25-gauge 1-1/2 inch needle with 1% preservative-free lidocaine for a total volume of 2 mls. Then an 20.5- inch tuohy needle was advanced under fluorosocpic guidance using an AP lateral views into the interlaminar space. A loss of resistance syringe was attached once I contacted ligamentum flavum; the needle was then slowly and carefully advanced until loss of resistance to Saline occurred at 5.5cm. I then attached a flushed 20-inch length of low-volume microbore tubing to the needle hub to minimize any further needle movement or introduction of air. Then 2 mls of Isovue-M 300 dye from a 10cc vial was injected under AP and confirmed adequate spread along in the epidural space. There was no evidence of intravascular up take or intrathecal spread on imaging. A lateral view was also taken confirming adequate epidural spread. Then 6 mls containing 0.125% Bupivacaine and 40 mg of Kenalog was injected without incident. The needle was flushed with a small amount of saline, re- styletted and removed. The needle insertion site was dressed appropriately. The patient was carefully escorted to the recovery room where they were monitored for a brief periodof time. The patient tolerated the procedure well and was discharged home, with a class b driver, in stable condition with post procedural instructions. Prior to the procedure, the patient reported a pain score of 0/10 at rest and 10/10 with activity. Shortly before discharge, we noted a pain score of 0/10 at rest and 0/10 with activity. Follow-up will be a clinic visit with Dr. Scherer, according to pertinent medical record documentation Complications: None documented in this encounter Plan of Treatment Upcoming Encounters Date Type Specialty Care Team Description 08/04/2022 Appointment Orthopedics Delgado Gottlieb MD [address] [place], [place] [address] (Wo rk) 10/08/2022 Appointment Orthopedics Delgado Gottlieb MD [address] [place], [place] [address] (Gavi presley) 05/27/2023 Appointment Chemo Therapy/Infusion Services documented as of this encounter Procedures Procedure Name Priority Date/Time Associated Diagnosis Comme nts FL C ARM 20 PAIN Routine 06/26/2021 8:01 AM Osteoarthritis of Results for this MANAGEMENT CDT spine with procedure are i n radiculopathy, lumbar the re sults region section. documented in this encounter Results FL [...] in this encounter Visit Diagnoses Diagnosis Lumbar radiculitis - Primary Thoracic or lumbosacral neuritis or radi culitis, unspecified Osteoarthritis of spine with radiculopat hy, lumbar region (HRC) documented in this encounter Care Teams Antique Finisher Relationship Specialty Start Date End Date Ladan Song MD PCP - General Internal Medicine 08/18/17 09/29/21 documented as of this encounter
--- OUTSIDE RECORDS SUMMARY | 2022-07-29 11:09 | XMS_ITS | Encounter Summary ---
:1960 Author Organization [facility] Address [address] [place] [address] Care Team Providers Name Role Phone Ladan Song MD Primary Care Provider Unavailable Reason for Visit Reason Comments QUESTIONS, GENERAL Encounter Details Date Type Department Care Team Description 03/12/2021 Telephone [facility] Cesar Champagne, QUESTIONS, GENERAL [address] [facility] [place], [place] [address] [address] [phone] [place] [phone] (Wo rk) Social History Tobacco Use [...] encounter Nursing Notes Yissel Moctezuma RN - 03/12/2021 9:49 AM CDT Unable to reach patient. Phone line is busy. Amanda Damon - 03/12/2021 9:16 AM CDT Has the patient recently had surgery or an injury? No Patient has questions regarding his back as he is starting to have issues again and declined to giveinformation to com writer. 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 documented in this encounter Plan of Treatment Upcoming Encounters Date Type Specialty Care Team Description 08/04/2022 Appointment Orthopedics Delgado Gottlieb MD [address] [place] [phone] (Gavi rk) 10/08/2022 Appointment Orthopedics Delgado Gottlieb MD [address] [place] [phone] (Gavi presley) 05/27/2023 Appointment Chemo Therapy/Infusion Services documented as of this encounter Visit Diagnoses Not on filedocumented in this encounter Care Teams Packager Machine Relationship Specialty Start Date End Date Ladan Song MD PCP - General Internal Medicine 08/18/17 09/29/21 documented as of this encounter
--- OUTSIDE RECORDS SUMMARY | 2022-07-29 11:10 | XMS_ITS | Encounter Summary ---
:1960 Author Organization [facility] Address [address] [place] [address] Care Team Providers Name Role Phone Eric Bower MD Primary Care Provider Reason for Visit Reason Onset Date Comments UPDATE 06/24/2017 Encounter Details Date Type Department Care Team Description 06/24/2017 Telephone [facility] TER German Miller MD UPDATE [address] [facility] [address] [place] [address] [place] [address] 1 [place] [address] [phone] (Wo rk) Social History Tobacco Use Types Packs/Day Years Used Date Smoking Tobacco: Never Food Insecurity Answer Date Recorded [...] documented as of this encounter Nursing Notes Freda Yao, RN - 06/24/2017 3:52 PM CDT Images from the original note were not included. ?? Message Received: Today ? German Miller MD Tibodeau, Joann R, RN ? Caller: Unspecified (Today, ??3:07 PM) ? I would separate the two by a couple weeks. Advised Lalitha of the same. She will assist in scheduling. Freda Yao RN - 06/24/2017 3:08 PM CDT Pt calling via . States he needs to get answers on his surgery today to be able to tell Kay. Returned call. Pt is going to have Procedure: LEFT carpal tunnel release, LEFT ulnar nerve submuscular transposition and open LEFT elbow debridement. He is also going to have a panniculectomy. There has been some question as to whether or not these 2 procedures can be done close together. [facility] asked that we contact this pt and obtain the name of the abdominal surgeon so that he could calland discuss this with him. In speaking to the pt, he has adamantly refused to tell us who the other surgeon is. Some doctor down in [place]. You don't need that information. I am not worried at all about infection. 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 When asked what would happen if he were to get an infection, he said no big deal. Routing to [facility] to see how he would like to proceed on this. documented in this encounter Plan of Treatment Upcoming Encounters Date Type Specialty Care Team Description 08/04/2022 Appointment Orthopedics Delgado Gottlieb MD [address] [place], [place] [phone] (Gavi presley) 10/08/2022 Appointment Orthopedics Delgado Gottlieb MD [address] [place], [place] [address] (Gavi presley) 05/27/2023 Appointment Chemo Therapy/Infusion Services documented as of this encounter Visit Diagnoses Not on filedocumented in this encounter Care Teams Industrial Maintenance Electrician Relationship Specialty Start Date End Date Eric Bower MD PCP - General 12/10/10 08/17/[address] [phone] documented as of this encounter
--- OUTSIDE RECORDS SUMMARY | 2022-07-29 11:10 | XMS_ITS | Encounter Summary ---
:1960 Author Organization [facility] Address [address] [place] [address] Care Team Providers Name Role Phone Ladan Song MD Primary Care Provider Unavailable Reason for Visit Reason Comments Hand Therapy Encounter Details Date Type Department Care Team Description 08/25/2017 Office Visit [facility] Sruthi Guardado, Cubital tunnel syndrome on l eft (Primary Dx); [address] [facility] OTR/L Aftercare following [facility]; Drive [address] [facility] [address] [place]ose [place] [address] [phone] Social History Tobacco Use Types Packs/Day Years [...] as of this encounter Progress Notes Sruthi Sheriff, OTR/L - 08/25/2017 1:00 PM CST Hand Occupational Therapy Evaluation/Plan of Care Initial Certification Period: 08/25/2017 - 11/23/17 Date of : 1960 Referring Provider: German Miller Diagnosis: Left cubital tunnel syndrome, elbow arthritis, and elbow loose bodies Orders: Evaluate and treat per MD post-operative protocol. Per post-op note: A/AA/PROM, hand use for basic every day activities. LAS with wrist included for protection. Date of Onset: years Cause: Gradual onset. Date of Surgery: 08/18/17 Surgery: Left ulnar nerve subcutaneous transposition; left elbow capsulectomy, left elbow debridement and loose body removal. Hand Dominance: Right PMH/Precautions: Refer to EMR for past medical history, medications, and drug allergies. Patient hash/o pacemaker. Patient reports early wrist injuries. Patient has no past medical history on file. 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 Functional Goals: ?? The patient will implement techniques for self-management of pain, edema, and scar as instructed at today's treatment session. ?? The patient will perform and progress their home exercise program as instructed at today's treatment session. ?? The patient will be able to manage self care ADLs with minimal to no difficulty or pain in 2 weeks. ?? The patient will be able to initiate return to full use with minimal to no difficulty or pain in 4-6 weeks. Functional Limitation Reporting: Based on objective findings and clinical judgment on 08/25/2017 Current Status: Self care (G8987) - Impairment level 40-59% impaired (CK modifier) Goal Status: Self care (G8988) - Impairment level 20-39% impaired (CJ modifier) SUBJECTIVE: Patient is 1 weeks post-operative. Seen after German Miller MD appointment. Patient was accompanied by his significant other. OBJECTIVE: Pain: Patient rates resting pain 0/10. Patient rates pain with activity 0/10. Edema: Moderate swelling observed at the surgical site. Circumferential measurements in cm: Right Left Elbow 26.6 30.3 AROM: The patient has full digital and wrist motion. Left Elbow Extension/Flexion 35/120 Supination/Pronation NT secondary to protocol Strength: Deferred secondary to post-operative restrictions. Incision: The incision is closed, no drainage, discharge, or signs of infection noted today. Sensation: The patient reports their sensation of numbness is improving in small finger s/p surgery.. TREATMENT INTERVENTION: OT Evaluation CPT 05101 (20 minutes untimed) A Moderate Complexity Occupational Therapy Evaluation was completed. Occupational profile/history: expanded review of records and medical history. Assessment: 3-5 performance deficits. Clinical decision making: consideration of several treatment options and patient may have co-morbidities. The patient was educated on the condition, planned therapy intervention, and expectations from treatment. Goals were a collaborative effort between the patient and therapist. Risks, benefits, and alternatives to treatment were explained. Patient or guardian in agreement with care plan. Therapeutic Exercise CPT 82764 (15 minutes) Exercise: Issued handout, instructed in, and performed elbow AROM in pronated position. The patient was instructed to perform the exercises 3-4x/day, 10 repetitions of each exercise. To keep digits, wrist and shoulder moving through normal ROM. Edema Management: Patient was instructed to keep the affected extremity elevated above their heart as able. Fit with light compression for edema control at the elbow- size E for wrist and G for elbow tubigrip. Scar Management: As patient is only 1 week out, no scar management issued. May wash normally. Education: The patient was educated on post-operative precautions and activity restrictions. Fair amount of time educating on anatomy, healing structures, what LIGHT hand use means, but that we need to emphasis gentle motion at this time, only 1 week out. Splint/Orthosis (30 minutes untimed) A custom thermoplastic long arm splint with wrist included was fabricated for the patient. The patient was provided with written instructions on splint care. Patient was intstructed to wear splint continuously, but may remove for hygiene and prescribed exercises. Per post op note, patient may also usehand for basic light every day tasks. Patient can don and doff splint independently. Timed Code Treatment Minutes: 15 Total Treatment Minutes: 65 ASSESSMENT: Symptoms are consistent with referring diagnosis and post-operative status. Functional limitations are due to: edema, decreased ROM, decreased strength, post-operative restrictions, and sensory disturbance. 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 Simplification to ROM was made in light of this. Rehab prognosis is good to achieve stated goals. Mood, orientation, and behavior were appropriate. Patient was alert and oriented. No apparent barriers to learning observed, however question compliancewith light ADLs. PLAN: The patient will return for additional therapy. Discharge is planned as functional outcomes are achieved, progress has reached a plateau or adequate progress is made such that the patient is able to self-manage with their home program. Patient was provided with the clinic number and instructed to callwith any questions or concerns. Next Treatment Session: Assess splint fit, ROM, and edema. If scar well healed, instruct in scar management. At 3 weeks, unrestricted elbow and forearm AROM. May wean from splint a bit more, but continue to use for protection. Patient lives in [place] so would like to minimize visits. If progressing well, consider f/u after MD 6 week appointment. (May instruct to begin AAROM to begin around 4-5 weeks if needed) Visit frequency/duration: Patient will be seen 1x/week for 6-8 weeks, unless progressing well. Treatment Plan: AROM, nerve glides, desensitization, strengthening, edema control, scar management, modalities, manual therapy, patient education and training. Therapist Signature: ANDREW Ruth/Violette, [facility] #[id number] Visit #1 Payor: [facility] / Plan: [facility] BLUE [employer]VANTAGE / Product Type: Medicaid / Physician electronic signature indicates review and certification of therapy plan of care. AGE GRINDER documented in this encounter Plan of Treatment Upcoming Encounters Date Type Specialty Care Team Description 08/04/2022 Appointment Orthopedics Delgado Gottlieb MD [address] [place], [place] [address] (Gavi presley) 10/08/2022 Appointment Orthopedics Delgado Gottlieb MD [address] [place], [place] [address] (Gavi presley) 05/27/2023 Appointment Chemo Therapy/Infusion Services documented as of this encounter Visit Diagnoses Diagnosis Cubital tunnel syndrome on left - Primar y Lesion of ulnar nerve Aftercare following [facility] Aftercare following surgery of [facility], N[facility] Loose body of left elbow Loose body in upper arm joint documented in this encounter Care Teams Events Solutions Consultant Relationship Specialty Start Date End Date Ladan Song MD PCP - General Internal Medicine 08/18/17 09/29/21 documented as of this encounter
--- OUTSIDE RECORDS SUMMARY | 2022-07-29 11:10 | XMS_ITS | Encounter Summary ---
:1960 Author Organization [facility] Address [address] [place] [id number] Care Team Providers Name Role Phone Eric Bower MD Primary Care Provider Reason for Visit Reason Onset Date Comments QUESTIONS, GENERAL 11/26/2016 Encounter Details Date Type Department Care Team Description 11/26/2016 Telephone [facility] ANNI German Rob, QUESTIONS, GENERAL [address] [facility] [place], [place] [address] [address] [facility] [phone] [place] [address] (Wo rk) Social History Tobacco Use Types [...] documented as of this encounter Nursing Notes Keyla Louise, RN - 11/26/2016 4:53 PM CDT Pt calling back, let him know he can come here and have an EMG with Jeronimo. Assisted Pt in scheduling. Future Appointments Date Time Provider Department Center 12/11/2016 1:20 PM Rahel Decker MD [facility] Freda Yao RN - 11/26/2016 12:16 PM CDT Called 's cell number. LM on to call back to [phone]. Freda Yao RN - 11/26/2016 9:07 AM CDT Pt calling via [employer]. States he has seen [facility] [place] his elbow. A CT was done and he has been referred to have an EMG. He has had to cancel this appt twice. He has been told that the EMG can be done here at [facility]. He would rather do this here as [facility]. Wanting to know why he is being sent to [place] when this can be done here. Routing to [facility]. Can this be scheduled here? documented in this encounter Plan of Treatment Upcoming Encounters Date Type Specialty Care Team Description 08/04/2022 Appointment Orthopedics Delgado Gottlieb MD [address] [place], [place] [address] (Gavi presley) 10/08/2022 Appointment Orthopedics Delgado Gottlieb MD [address] [place], [place] [address] (Gavi presley) 05/27/2023 Appointment Chemo Therapy/Infusion Services documented as of this encounter Visit Diagnoses Not on filedocumented in this encounter Care Teams Pbx Installer Relationship Specialty Start Date End Date Eric Bower MD PCP - General 12/10/10 08/17/[address] [place] [phone] documented as of this encounter
--- OUTSIDE RECORDS SUMMARY | 2022-07-29 11:10 | XMS_ITS | Encounter Summary ---
:1960 Author Organization [facility] Address [address] [place] [address] Care Team Providers Name Role Phone Eric Bower MD Primary Care Provider Reason for Referral Procedure/Equipment (Routine) - Incomplete Specialty Diagnoses / Procedures Referred By Contact Refer red To Contact Diagnoses Arthritis of left elbow German Miller MD Procedures CT Elbow Lt WO IV Cont [address] [facility] [address] [place] [address] Referral ID Status Reason Start Date Expiration Date Visits V isits Requested Authorized [id number] Incomplete 11/03/2016 02/02/2018 1 1 IFIED INDOOR ENVIRONMENTALIST Procedure/Equipment (Routine) - Incomplete Specialty Diagnoses / Procedures Referred By Contact Refer red To Contact Diagnoses Arthritis of left elbow German Miller MD Procedures XR Elbow Lt 3+ Views [address] [facility] [place] [address] [place] [address] Referral ID Status Reason Start Date Expiration Date Visits V isits Requested Authorized [id number] Incomplete 11/03/2016 02/02/2018 1 1 IFIED INDOOR ENVIRONMENTALIST Reason for Visit Reason Comments Elbow Pain Left Encounter Details Date Type Department Care Team Description 11/03/2016 Surgical Consult [facility] German Miller hritis of left elbow (Primary Dx); MELANIA Motta MD Ulnar neuropathy of both upper extremiti es [address] [facility] [address] [place], [place] [address] [phone] Social History Tobacco Use Types Packs/Day Years [...] - Inhaled Oxygen Concentration - - Weight 79.4 kg (175 lb) 11/03/2016 10:55 AM CERTIFIED INDOOR ENVIRONMENTALIST Height 182.9 cm (6') 11/03/2016 10:55 AM CERTIFIED INDOOR ENVIRONMENTALIST Body Mass Index 23.73 11/03/2016 10:55 AM CERTIFIED INDOOR ENVIRONMENTALIST documented in this encounter Patient Instructions Patient InstructionsKueAmol serrano, OA - 11/03/2016 11:[address] German Miller MD Hand & Upper Extremity Surgeon Erp Engineer: Lalitha Watson Please contact Lalitha for all surgery scheduling and administrative questions at [phone] Hand Nurse: Leonardo Yao Please contact Leonardo for all medical related questions at [phone] Medication Requests: Prescriptions are not filled on Weekends or on Weekdays after 3:00PM For all medication refills: Request a refill using [employer] or contact your Pharmacy Please call [phone] to make future appointments. Schedule CT scan and EMG Follow up for results as discussed Your Provider has ordered an EMG: Location: [facility] [address], [place] [address] Provider: Dr. Thompson Test Ordered: EMG Nerve Conduction Study Please be aware: Dr. Thompson's office will call you within 24 hours. If you have not heard from their office please call [phone]. To Do List: Please make an appointment with your referring provider in clinic to review the results. IFIED INDOOR ENVIRONMENTALIST documented in this encounter Progress Notes German Miller MD - 11/03/2016 6:31 AM CST [facility] Orthopaedic [place] Consultation 11/03/2016 Chief Complaint: Left Elbow Pain History of Present Illness: Laz Luna is a right hand dominant 56 y.o. male who presents with his for evaluation of left elbow pain that has been going on for the past 5 years. The pain initially occurred when he slipped on some ice and landed directly on the left elbow and knee. There is no prior history of injury, trauma,or surgery to the left elbow. He has noticed difficulty with lifting his left arm, and any types of motion. There is pain especially noted when using his steering wheel and occasionally during the night. The patient has not had any clicking, catching, or locking sensations in the elbow. He has had some numbness in the left small finger, but otherwise no other numbness/tingling sensations. The patienthas not noticed any swelling in the elbow, but has noticed decreased range of motion. Ed has been previously evaluated by Ruth for this same problem where they recommended he try physical therapy. Allergies: The patient has allergies to Ciprofloxacin and Flu virus vaccine. Current Medications: The patient has a current medication list which includes the following prescription(s): acetaminophen, allopurinol, cyanocobalamin, furosemide, lisinopril, and sennosides. Past Medical History: Noncontributory. Past Surgical History: The patient has past surgical history on file including bariatric surgery (2015). Family History: Noncontributory. 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 He is a non-smoker and does not drink any alcohol. The General Medical History Form dated 11/03/2016 was updated and reviewed with the patient; this is located in [facility] in [facility]. Review of Systems: A 15-point review was completed by the patient on the intake questionnaire. Review of systems was negative except for high blood pressure and arthritis. Physical Exam: Height: 1.829 m (6') Weight: 79.379 kg (175 lb) General: Healthy appearing male. Affect appropriate. Normal gait. Alert and oriented x 3. Cardiovascular/Neuro: Sensation intact to light touch in all digits. Fingertips pink and well-perfused. Capillary refill less than two seconds. 2 point discrimination 5, 5, 5, 5 and then >15 mm in the 5th digit. Left Hand/Wrist: Intrinsic atrophy of the left hand. Minor hypothenar atrophy, but no clawing of theleft hand. 5/5 strength in the abductor pollicis brevis, 4/5 strength in the first dorsal interosseous, and 4/5 strength in the abductor digiti minimi. Positive Froment's sign on the left. Positive Tinel's sign at the cubital tunnel. Elbow flexion is approximately to 110 degrees. Elbow extension is to-22 degrees. Pronation and supination is smooth and symmetric. Tenderness over the radiocapitellar and ulnohumeral joint lines. Imaging: Radiographs of the left elbow - 3 views (11/03/2016): 3 views of the left elbow show there are degenerative changes seen with a large osteophytes seen on the coronoid and a second on the olecranon. There is also osteophyte formation in the olecranon and coronoid fossa. Loose bodies noted in the joint. I ordered and independently reviewed and interpreted the imaging studies above; the results were discussed with the patient and . Assessment: Diagnosis and Associated Orders ICD-10-CM 1. Arthritis of left elbow M19.90 XR Elbow Lt 3+ Views 2. 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 The patient voiced understanding of the information discussed, and at this time, elects to proceed with scheduling a CT scan of the left elbow and an EMG test ofthe bilateral upper extremity. I instructed the patient to follow- up after both tests are complete to discuss the results and further treatment options. The patient voices understanding and agreement of this plan. Scribe Disclosure: I, Melchor Arevalo, am serving as a scribe to document services personally performed by German Miller MD at this visit, based upon the provider's statements to me. All documentation has been reviewed by the aforementioned provider prior to being entered into the official medical record. Entered on 11/03/2016 at 11:23 AM. I, German Miller MD, attest that the above named individual is acting in scribe capacity, has observed my performance of the services performed at this visit and has documented them in accordance with my direction. Entered on 11/03/2016 at 11:23 AM. German Miller MD IFIED INDOOR ENVIRONMENTALIST documented in this encounter Plan of Treatment Upcoming Encounters Date Type Specialty Care Team Description 08/04/2022 Appointment Orthopedics Delgado Gottlieb MD [address] [place] [phone] (Wo rk) 10/08/2022 Appointment Orthopedics Delgado Gottlieb MD [address] [place] [phone] (Gavi presley) 05/27/2023 Appointment Chemo Therapy/Infusion Services documented as of this encounter Results CT Elbow Lt WO IV Cont (11/03/2016 1:56 PM CERTIFIED INDOOR ENVIRONMENTALIST) Anatomical Region Laterality Modality Upper Extremity, Forearm, Arm, Elbow Com puted Tomography Specimen (Source) Anatomical Collection Method Collection Time Re ceived Time Location / / Volume Laterality 11/03/2016 1:32 PM CERTIFIED INDOOR ENVIRONMENTALIST Impressions 11/03/2016 2:49 PM CERTIFIED INDOOR ENVIRONMENTALIST IMPRESSION: ??Moderate osteoarthritic changes and multiple ossific joint bodies. Narrative 11/03/2016 2:49 PM CERTIFIED INDOOR ENVIRONMENTALIST TECHNIQUE: ??Thin section axial scans were obtained through the left elbow. Sagittal and coronal reconstruction was performed without contrast. COMPARISON: None. FINDINGS: ??There is full-thickness join t space narrowing of the radiocapitellar joint. There is moderate ulnohumeral spurring. There are there are multiple ossific joint bodies in the anterior and post erior elbow joint, up to 0.8 cm diameter . There are enthesophytes at the medial and lateral humeral epicondyles. No fracture identified. Procedure Note Aureliano Huang MD - 11/03/2016Forma tting of this note might be different from the original. TECHNIQUE: Thin section axial scans were obtained through the left elbow. Sagittal and coronal reconstruction was performed without contrast. COMPARISON: None. FINDINGS: There is full-thickness joint space narrowing of the radiocapitellar joint. There is moderate ulnohumeral spurring. There are there are multiple ossific joint bodies in the anterior and posterior elbow joint, up to 0.8 cm diameter. Ther e are enthesophytes at the medial and lateral humeral epicondyles. No fracture identified. IMPRESSION IMPRESSION: Moderate osteoarthritic ayala ges and multiple ossific joint bodies. German Miller MD RAD CT XR Elbow Lt 3+ Views (11/03/2016 11:04 AM CERTIFIED INDOOR ENVIRONMENTALIST) Anatomical Region Laterality Modality Upper Extremity, Elbow Digital Radiograp hy Specimen (Source) Anatomical Location Collection Method / Collectio n Time Received Time / Laterality Volume Narrative 11/03/2016 3:31 PM CERTIFIED INDOOR ENVIRONMENTALIST 3 views of the left elbow show there are degenerative changes seen with a large osteophytes seen on the coronoid a nd a second on the olecranon. There is also osteophyte formation in th e olecranon and coronoid fossa. Loose bodies noted in the joint. German Miller MD RAD GD documented in this encounter Visit Diagnoses Diagnosis Arthritis of left elbow - Primary Ulnar neuropathy of both upper extremiti es Left elbow pain Pain in joint, upper arm Arthritis of left elbow documented in this encounter Care Teams Auto Parker Relationship Specialty Start Date End Date Eric Bower MD PCP - General 12/10/10 08/17/[address] [place] [phone] documented as of this encounter
--- OUTSIDE RECORDS SUMMARY | 2022-07-29 11:10 | XMS_ITS | Encounter Summary ---
:1960 Author Organization [facility] Address [address] [place] [address] Care Team Providers Name Role Phone Ladan Song MD Primary Care Provider Unavailable Encounter Details Date Type Department Care Team Description 08/26/2017 Notes/Orders [facility] Radha Womack, OTR/L [address] [place] [address] [place] [address] [phone] (Wo rk) Social History Tobacco Use Types [...] documented as of this encounter Progress Notes Radha Womack, OTR/L - 08/26/2017 12:52 PM CST Patient called clinic today with concerns about LAS aggravating ulnar nerve at the hand. He states I cut it down some already and it helped, but its still putting pressure on the nerve so I'm going tocut it down more. Patient reports that he is not able to return to clinic until scheduled appointment next week despite recommendations to return to clinic for splint adjustments. He states that he feels better when he is out of the splint and is moving, as the elbow is less stiff and he isn't experiencing any pain. Expresses frustration at having to wear the splint at all - Reviewed with him the rationale for splint wear to protect flexor/pronator mass, and encouraged him to continue to use it for protection. He may remove it frequently for exercises and some light functional use. Also reviewed the importance of adhering to post-op lifting restrictions, as the patient reported during the phone conversation that he has already lifted a 40# bag of salt with both arms. Plan is to return to clinic for his next scheduled appointment next week. VINCENT Brady/Violette T #[id number] AINER FINISHER documented in this encounter Plan of Treatment Upcoming Encounters Date Type Specialty Care Team Description 08/04/2022 Appointment Orthopedics Delgado Gottlieb MD [address] [place] [phone] (Gavi presley) 10/08/2022 Appointment Orthopedics Delgado Gottlieb MD [address] [place] [phone] (Gavi presley) 05/27/2023 Appointment Chemo Therapy/Infusion Services documented as of this encounter Visit Diagnoses Not on filedocumented in this encounter Care Teams Electrician Ship Relationship Specialty Start Date End Date Ladan Song MD PCP - General Internal Medicine 08/18/17 09/29/21 documented as of this encounter
--- OUTSIDE RECORDS SUMMARY | 2022-07-29 11:10 | XMS_ITS | Encounter Summary ---
:1960 Author Organization [facility] Address [address] [place] [address] Care Team Providers Name Role Phone Ladan Song MD Primary Care Provider Unavailable Reason for Visit Reason Comments Hand Therapy Encounter Details Date Type Department Care Team Description 09/01/2017 Office Visit [facility] Jerad Bell, Cubital tunnel syndrome on l eft (Primary Dx); [address] [facility] OTR/L [facility] Drive [address] [facility] [address] [place] [address] [phone] Social History Tobacco Use Types Packs/Day Years [...] documented as of this encounter Progress Notes Jerad Bell, OTR/L - 09/01/2017 1:00 PM CST Hand Occupational Therapy Progress Note Initial Certification Period: 08/25/2017 - 11/23/17 Date [...] history, medications, and drug allergies. Patient hash/o pacemaker, falls risk. Patient reports early wrist injuries. Patient has no past medical historyon file. 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 Patient was accompanied by his significant other again today. He reports he had to cut the splint down at the wrist because it was hurting him; it feels much better now. He also requests additional strap hook as his has been coming off. Pt reports it is extremely difficult/illegal to drive/shift whilewearing his splint. OBJECTIVE: Pain: Patient rates resting pain 0/10. Patient rates pain with activity 0/10. Edema: Moderate swelling observed at the surgical site. Circumferential measurements in cm: Right Left 09/01/17 L 09/01/17 R Elbow 26.6 30.3 28.4 26.4 AROM: The patient has full digital and wrist motion. Left 09/01/17 Elbow Extension/Flexion 35/120 30/122 Supination/Pronation NT secondary to protocol Not measured due to time constraints today Incision: The incision is closed, no drainage, discharge, or signs of infection noted today. Steri strips removed today and sutures trimmed at each end of incision. Sensation: Patient reports no numbness today. TREATMENT INTERVENTION: Therapeutic Exercise CPT 15732 (45 minutes) Exercise: Re-Issued handout, instructed in, and performed elbow AROM, in all positions today. The patient was instructed to perform the exercises 3-4x/day, 10 repetitions of each exercise. Emphasized to pt to keep digits, wrist and shoulder moving through normal ROM and only move elbow through gentle ROM. Considerable amount of time spent with pt today educating on imprortance of continued splint wearing and following all precautions outlined in his initial visit. Also emphasized to pt the healing process without added stress. Elbow measurements updated today and cleaning performed around wound site. Edema Management: Patient was instructed to keep the affected extremity elevated above their heart as able. Re-Fit with light compression for edema control at the elbow- size E for wrist and G for elbow tubigrip. Pt reports he added another layer of his own compression sleeve at home, however he was instructed to only use one layer to avoid tourniquet effect. Scar Management: Not performed due to time constraints today. Education: The patient was educated on post-operative precautions and activity restrictions. Splint/Orthosis (5 minutes untimed) Adjusted distal end of splint for comfort. Timed Code Treatment Minutes: 45 Total Treatment Minutes: 50 ASSESSMENT: Symptoms are consistent with referring diagnosis and post-operative status. Functional limitations are due to: edema, decreased ROM, decreased strength, post-operative restrictions, and sensory disturbance. Able to progress with elbow AROM exercise in all planes today-pt able to demonstrate understanding. Non-compliance with splint wearing and lifting precautions noted, as pt verbally stated his frustrations with his plan of care, in addition to splint already being cut down today upon arrival. Bruising and mild edema noted about wound site. Pt and significant other demonstrate notable frustration and questioning attitude with POC, however pt voiced his eagerness to return to therapy next week to progress his program and to have his splint discharged. PLAN: The patient will return for additional therapy. Discharge is planned as functional outcomes are achieved, progress has reached a plateau or adequate progress is made such that the patient is able to self-manage with their home program. Patient was provided with the clinic number and instructed to callwith any questions or concerns. Next Treatment Session: D/C splint, update measurements, ROM, and edema, progress HEP. If scar well healed, instruct in scar management. Patient lives in [place] so would like to minimize visits. Ifprogressing well, consider f/u after MD 6 week appointment. (May instruct to begin AAROM to begin around 4-5 weeks if needed) Visit frequency/duration: Patient will be seen 1x/week for 6-8 weeks, unless progressing well. Treatment Plan: AROM, nerve glides, desensitization, strengthening, edema control, scar management, modalities, manual therapy, patient education and training. Therapist Signature: Jerad Bell MS, OTR/L # [id number] Visit #2 Payor: [employer] / Plan: [facility] BLUE ADVANTAGE / Product Type: Medicaid / AL TOWER OPERATOR documented in this encounter Plan of Treatment Upcoming Encounters Date Type Specialty Care Team Description 08/04/2022 Appointment Orthopedics Delgado Gottlieb MD [address] [place], [place] [phone] (Gavi presley) 10/08/2022 Appointment Orthopedics Delgado Gottlieb MD [address] [place], [place] [phone] (Gavi presley) 05/27/2023 Appointment Chemo Therapy/Infusion Services documented as of this encounter Visit Diagnoses Diagnosis Cubital tunnel syndrome on left - Primar y Lesion of ulnar nerve Aftercare following [facility] Aftercare following [facility], NEC Loose body of left elbow Loose body in upper arm joint documented in this encounter Care Teams Air Intercept Controller Supervisor Relationship Specialty Start Date End Date Ladan Song MD PCP - General Internal Medicine 08/18/17 09/29/21 documented as of this encounter
--- OUTSIDE RECORDS SUMMARY | 2022-07-29 11:10 | XMS_ITS | Encounter Summary ---
:1960 Author Organization [facility] Address [address] [place], [place] [address] [address] Care Team Providers Name Role Phone Eric Bower MD Primary Care Provider Reason for Visit Procedure/Equipment (Routine) - Incomplete Specialty Diagnoses / Procedures Referred By Contact Refer red To Contact Diagnoses Arthritis of left elbow German Miller MD Procedures XR Elbow Lt 3+ Views [address] [facility] [address] [place] [address] Referral ID Status Reason Start Date Expiration Date Visits V isits Requested Authorized [id number] Incomplete 11/03/2016 02/02/2018 1 1 Encounter Details Date Type Department Care Team Description 11/03/2016 Imaging [facility] German Miller MD Left elbow pain [address] [facility] [address] [facility] [address] [place] [address] [place] [address] [phone] (Wo rk) Social History Tobacco Use Types [...] 08/04/2022 Appointment Orthopedics Delgado Gottlieb MD [address] [place], [place] [phone] (Wo rk) 10/08/2022 Appointment Orthopedics Delgado Gottlieb MD [address] [place], [place] [phone] (Wo rk) 05/27/2023 Appointment Chemo Therapy/Infusion Services documented as of this encounter Procedures Procedure Name Priority Date/Time Associated Diagnosis Comme nts XR ELBOW LT 3+ Routine 11/03/2016 11:04 AM Left elbow pain Res ults for this VIEWS SOFTWARE CONSULTANT procedure are i n the results section. documented in this encounter Results XR Elbow Lt 3+ Views (11/03/2016 11:04 AM SOFTWARE CONSULTANT) Anatomical Region Laterality Modality Upper Extremity, Elbow Digital Radiograp hy Specimen (Source) Anatomical Location Collection Method / Collectio n Time Received Time / Laterality Volume Narrative 11/03/2016 3:31 PM SOFTWARE CONSULTANT 3 views of the left elbow show there are degenerative changes seen with a large osteophytes seen on the coronoid a nd a second on the olecranon. There is also osteophyte formation in th e olecranon and coronoid fossa. Loose bodies noted in the joint. German Miller MD RAD GD documented in this encounter Visit Diagnoses Diagnosis Left elbow pain Pain in joint, upper arm documented in this encounter Care Teams Publications Inspector Relationship Specialty Start Date End Date Eric Bower MD PCP - General 12/10/10 08/17/[address] [place] [phone] documented as of this encounter
--- OUTSIDE RECORDS SUMMARY | 2022-07-29 11:10 | XMS_ITS | Encounter Summary ---
:1960 Author Organization [facility] Address [address] [place] [address] Care Team Providers Name Role Phone Eric Bower MD Primary Care Provider Encounter Details Date Type Department Care Team Description 08/11/2017 Notes/Orders [facility] German Miller, Surg hayes, elective CENTER (Primary Dx) [address] [facility] [facility] [address] [place] [address] [place] [address] [place], [place] [phone] (Gavi presley) Social History Tobacco Use Types [...] 08/04/2022 Appointment Orthopedics Delgado Gottlieb MD [address] [place], [place] [phone] (Gavi presley) 10/08/2022 Appointment Orthopedics Delgado Gottlieb MD [address] [facility] [place] [place] [phone] (Gavi presley) 05/27/2023 Appointment Chemo Therapy/Infusion Services documented as of this encounter Visit Diagnoses Diagnosis Surgery, elective - Primary Unspecified elective surgery for purpose s other than remedying health states documented in this encounter Care Teams Tacker Elastic Band Relationship Specialty Start Date End Date Eric Bower MD PCP - General 12/10/10 08/17/17 [address] [facility] [address] [place] [address] documented as of this encounter
--- OUTSIDE RECORDS SUMMARY | 2022-07-29 11:10 | XMS_ITS | Encounter Summary ---
:1960 Author Organization [facility] Address [address] [place] [address] Care Team Providers Name Role Phone Ladan Song MD Primary Care Provider Unavailable Reason for Visit Reason Comments Elbow Problem left Encounter Details Date Type Department Care Team Description 04/08/2018 Office Visit [facility] Geramn Miller, Cont usion of left CENTER elbow, initial [address] [facility] [address] [facility] [address] encounter (Primary [place], [place] [address] [place], [place] Dx) [phone] (Wo rk) Social History Tobacco Use Types [...] as of this encounter Patient Instructions Patient InstructionsGoIta real, OA - 04/08/2018 7:[address] German Miller MD Hand & Upper Extremity Surgeon Filler Shredder Helper: Lalitha Watson Please contact Lalitha for all surgery scheduling and administrative questions at [phone] Hand Nurse: Leonardo Yao Please contact Leonardo for all medical related questions at [phone] Medication Requests: Prescriptions are not filled on Weekends or on Weekdays after 3:00PM For all medication refills: Request a refill using [employer] or contact your Pharmacy Please call [phone] to make future appointments. Dr. Giovanni Wilson MD Orthopeadic Spine documented in this encounter Progress Notes German Miller MD - 04/08/2018 7:20 AM CDT [facility] Follow-Up 04/08/2018 Chief Complaint: Left elbow injury History of Present Illness: Ed Jim Luna is a 57 y.o. male status-post left ulnar submuscular transposition, capsulectomy, and opendebridement and loose body removal completed on 08/18/17 who presents for concerns of a left elbow injury. Patient reports he experienced a trip and fall directly on the posterior left elbow two monthsago in February 2018. Was evaluated for this in an emergency department where radiographs were completed, results as below. Today, localizes continued tenderness described as aching in nature to the medialand posterior aspect of the left elbow. Presents today to make sure he has not accidentally caused alf damage. Denies any numbness or tingling. Physical Exam: General: Healthy appearing male. Affect appropriate. Normal gait. Alert and oriented x 3. Cardiovascular/Neuro: Sensation intact to light touch in all digits. Fingertips pink and well-perfused. Capillary refill less than two seconds. Left Hand/Wrist: Full range of motion. Focally tender over the medial epicondyle. No tenderness of the olecranon or lateral epicondyle. No bruising. No edema. No obvious deformity. Imaging: Radiographs of the left elbow - 3 views (02/14/18): IMPRESSION: No radiographic evidence of acute fracture or elbow effusion or dislocation. Mild to moderate olecranon spur, unchanged. Probable small elbow joint effusion, stable to minimally progressed since 11/18/2011. Interval progression of arthritic changes involving the medial lateral elbow joint sp aces. No erosive or osteolytic changes. No evidence of opaque foreign body. Vascular calcifications. Report per radiologist. I independently reviewed and interpreted the imaging studies above; the results were discussed with the patient. Assessment: Diagnosis and Associated Orders ICD-10-CM 1. Contusion of left elbow, initial encounter S50.02XA Plan: After a detailed discussion, I have informed the patient that I do not see anything on exam or imaging studies that are worrisome for his left elbow in relation to his fall. At this time, I am recommending he continue with conservative managements and activities as tolerated. He also requests a referra l to a spine physician here at [facility]. A referral to Dr. Wilson has been placed. Patient voiced understanding of the information discussed and has elected to proceed with my recommendations. All questions were answered. Follow up as needed. Scribe Disclosure: I, Sebas Negron, am serving as a scribe to document services personally performed by German Miller MD at this visit, based upon the provider's statements to me. All documentation has been reviewedby the aforementioned provider prior to being entered into the official medical record. Portions of this medical record were completed by a scribe. UPON MY REVIEW AND AUTHENTICATION BY ELECTRONIC SIGNATURE, this confirms (a) I performed the applicable clinical services, and (b) the recordis accurate. German Miller MD documented in this encounter Plan of Treatment Upcoming Encounters Date Type Specialty Care Team Description 08/04/2022 Appointment Orthopedics Delgado Gottlieb MD [address] [place] [phone] (Gavi presley) 10/08/2022 Appointment Orthopedics Delgado Gottlieb MD [address] [place], [place] [address] (Gavi presley) 05/27/2023 Appointment Chemo Therapy/Infusion Services documented as of this encounter Visit Diagnoses Diagnosis Contusion of left elbow, initial encount er - Primary documented in this encounter Care Teams Pediatric Psychiatrist Relationship Specialty Start Date End Date Ladan Song MD PCP - General Internal Medicine 08/18/17 09/29/21 documented as of this encounter
--- OUTSIDE RECORDS SUMMARY | 2022-07-29 11:10 | XMS_ITS | Encounter Summary ---
:1960 Author Organization [facility] Address [address] [place] [address] Care Team Providers Name Role Phone Eric Bower MD Primary Care Provider Reason for Visit Reason Comments HAND PAIN left CTS Encounter Details Date Type Department Care Team Description 01/06/2017 Office Visit TRIGerman Watkins, Left carpal tunnel syndrome (Primary Dx); CENTER Left cubital tunnel syndrome; [address] [facility] [place] [address] Left elbow arthritis with loose bodies [place], [place] [address] [place], [place] [phone] (Wo rk) Social History Tobacco Use Types [...] as of this encounter Patient Instructions Patient InstructionsKAmol boland, OA - 01/06/2017 7:[address] German Miller MD Hand & Upper Extremity Surgeon Senior Php Software Developer: Lalitha Watson Please contact Lalitha for all surgery scheduling and administrative questions at [phone] Hand Nurse: Leonardo Yao Please contact Leonardo for all medical related questions at [phone] Medication Requests: Prescriptions are not filled on Weekends or on Weekdays after 3:00PM For all medication refills: Request a refill using [employer] or contact your Pharmacy Please call [phone] to make future appointments. Follow up for surgery as scheduled documented in this encounter Progress Notes German Miller MD - 01/06/2017 6:22 AM CDT [facility] Follow-Up 01/06/2017 Chief Complaint: Left Elbow Pain Bilateral Ulnar Neuropathy History of Present Illness: Laz Luna is a 56 y.o. male who presents for follow-up regarding left elbow pain and ulnar neuropathy. I last saw the patient on 11/03/16. At that time he described five years of ongoing elbow pain after a fall on the ice where he landed on his elbow. Plan was made to obtain CT of the left elbow and EMG of the bilateral upper extremities. Dr. Decker performed his EMG on 12/11/16 with results as noted below. Today, he states that he has intermittent elbow pain, some good days and some bad. He does stillnote both palpable and audible catching and clicking in the elbow. He has been treating with an elastic sleeve, heat, and IcyHot. The numbness and tingling in his left hand has persisted without any sig nificant change or worsening since his last visit. He states that sometimes his small finger is completely numb. The patient voices no further questions or concerns. Physical Exam: General: Healthy appearing male. Affect appropriate. Normal gait. Alert and oriented x 3. Cardiovascular/Neuro: Fingertips pink and well-perfused. Capillary refill less than two seconds. Left Upper Extremity: Elbow flexion to 105 degrees, extension to 35 degrees. Pronosupination is smooth and symmetric. Atrophy of the intrinsics. No clawing. 5/5 in abductor pollicis brevis. 4+/5 in first DI and abductor digiti minimi. Static two point is 5, 5, 5, 6, greater than 15. Imaging: CT Left Elbow w/o IV Contrast (11/03/16): Moderate osteoarthritic changes and multiple ossific joint bodies. Reading per radiology. I ordered and independently reviewed the imaging studies above; the results were discussed with the patient. EMG Results per Dr. Decker's Note: 1. 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 2. Incidentally, there is a right ulnar neuropathy. This EMG is unable to localize to a specific site. 3. There is a left moderate median neuropathy at the wrist (carpal tunnel syndrome.) 4. Incidentally, there is a right mild medial neuropathy at the wrist (carpal tunnel syndrome). Thisupper extremity was evaluate for comparison. There is no electrophysiologic evidence of a left cervical radiculopathy. Assessment: Diagnosis and Associated Orders ICD-10-CM 1. Left carpal tunnel syndrome G56.02 2. Left cubital tunnel syndrome G56.22 3. 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 I have recommended open elbow debridement and simultaneous submuscular transposition. I a have also suggested that he address his carpal tunnel syndrome with a CTR at the same time. We discussed the procedure in detail includingthe risks, benefits and alternatives. No guarantees were made. The patient voiced understanding of the information discussed, and at this time, elects to proceed with surgery. He may schedule this withmy team. Scribe Disclosure: Gloria Contreras, am serving as a scribe to document services personally performed by German Miller MD at this visit, based upon the provider's statements to me. All documentation has been reviewed by the aforementioned provider prior to being entered into the official medical record. Entered on 01/06/2017 at 8:09 AM. German Contreras MD, attest that the above named individual is acting in scribe capacity, has observed my performance of the services performed at this visit and has documented them in accordance with my direction. Entered on 01/06/2017 at 8:09 AM. German Miller MD documented in this encounter Plan of Treatment Upcoming Encounters Date Type Specialty Care Team Description 08/04/2022 Appointment Orthopedics Wojahn, Delagdo D , MD [address] [place], [place] [address] (Wo rk) 10/08/2022 Appointment Orthopedics Delgado Gottlieb MD [address] [place], [place] [address] (Gavi rk) 05/27/2023 Appointment Chemo Therapy/Infusion Services documented as of this encounter Visit Diagnoses Diagnosis Left carpal tunnel syndrome - Primary Carpal tunnel syndrome Left cubital tunnel syndrome Left elbow arthritis with loose bodies documented in this encounter Care Teams Planning Consultant Relationship Specialty Start Date End Date Eric Bower MD PCP - General 12/10/10 08/17/[address] [place] [phone] documented as of this encounter
--- OUTSIDE RECORDS SUMMARY | 2022-07-29 11:10 | XMS_ITS | Encounter Summary ---
:1960 Author Organization [facility] Address [address] [place] [address] Care Team Providers Name Role Phone Ladan Song MD Primary Care Provider Unavailable Reason for Visit Reason Comments Post-Op Follow Up Call Encounter Details Date Type Department Care Team Description 08/19/2017 Telephone [facility] German Miller, Post -Op Follow Up Call CENTER [address] [facility] [address] [facility] [address] [place] [address] [place], [place] [phone] (Wo rk) Social History Tobacco Use Types [...] documented as of this encounter Nursing Notes Vidhi Bran, RN - 08/19/2017 5:44 PM CST Post surgical discharge follow up call completed. See doc flowsheet: SURGDC for details. Pt doing very well. He states he hasn't needed anything for pain. Pt did ask about the order of his appts. Pt's appts are set up on the 08/25/2017 but the therapy first and then sees Dr. Miller after therapy. Wondering if this should be switched? Please call him to clarify at . ING TRACER documented in this encounter Plan of Treatment Upcoming Encounters Date Type Specialty Care Team Description 08/04/2022 Appointment Orthopedics Delgado Gottlieb MD [address] [place], [place] [phone] (Wo rk) 10/08/2022 Appointment Orthopedics Delgado Gottlieb MD [address] [place] [phone] (Gavi rk) 05/27/2023 Appointment Chemo Therapy/Infusion Services documented as of this encounter Visit Diagnoses Not on filedocumented in this encounter Care Teams Firebreak Cutter Relationship Specialty Start Date End Date Ladan Song MD PCP - General Internal Medicine 08/18/17 09/29/21 documented as of this encounter
--- OUTSIDE RECORDS SUMMARY | 2022-07-29 11:10 | XMS_ITS | Encounter Summary ---
:1960 Author Organization [facility] Address [address] [place] [address] Care Team Providers Name Role Phone Ladan Song MD Primary Care Provider Unavailable Reason for Visit Reason Comments Hand Therapy Encounter Details Date Type Department Care Team Description 09/08/2017 Office Visit [facility] Jerad Bell, Cubital tunnel syndrome on l eft (Primary Dx); [address] [facility] OTR/L [facility]care [facility]; Drive [address] [facility] [address] [place] [address] [phone] Social History Tobacco Use Types Packs/Day Years [...] encounter Progress Notes Jerad Bell, OTR/L - 09/08/2017 1:00 PM CST Hand Occupational Therapy Progress [...] no past medical historyon file. 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 Functional Goals: All goals met 09-08-17 ?? The patient will implement techniques for [...] on objective findings and clinical judgment on 09/08/2017 Discharge Status: Self care (G8989) - Impairment level 20-39% impaired (CJ modifier) Goal Status: Self care (G8988) - Impairment level 20-39% impaired (CJ modifier) SUBJECTIVE: Pt reports he is pleased with his overall progress and feels he is appropriate to be discharged today. He does note lingering intermittent numbness/tingling through L SF, though none reported today. He was encouraged to monitor his resting position of the the L elbow to avoid compression at the surgical site. OBJECTIVE: Pain: Patient rates resting pain 0/10. Patient rates pain with activity 0/10. Edema: Moderate swelling observed at the surgical site. Circumferential measurements in cm: Right Left 09/01/17 L 09/01/17 R 09/08/17 L 09/08/17 R Elbow 26.6 30.3 28.4 26.4 27.8 27.5 AROM: The patient has full digital and wrist motion. Left 09/01/17 09/08/17 Elbow Extension/Flexion 35/120 30/122 10/125 Supination/Pronation NT secondary to protocol Not measured due to time constraints today 75/70 Incision: The incision is closed, no drainage, discharge, or signs of infection noted today. Sensation: Patient reports no numbness today. TREATMENT INTERVENTION: Therapeutic Exercise CPT 26838 (25 minutes) Exercise: All measurements updated today. Edema Management: Pt reports he is satisfied with his current tubi-warranty administrator supply and does not need additional. Scar Management: The patient was instructed in and issued written information on scar mobilization with recommendations to perform 3 times per day for 3-5 minutes as soon as incision is healed. The patient was issued ascar pad to use 8 hours out of 24 hours a day. Written instructions were issued regarding scar pad wear, care and precautions. Education: The patient was educated on post-operative precautions and activity restrictions. Timed Code Treatment Minutes: 25 Total Treatment Minutes:25 ASSESSMENT: Per updated measurements, patient's L elbow AROM continues to improve, as well his overall functional ability, and he remains pain-free with activity. He was instructed to continue wearing his splint, as needed, for protection purposes only-he voices understanding of this precaution. He will continue to progress well on his own and thus is appropriate to be discharged from therapy at this time. PLAN: Treatment goals were achieved/Progress has reached a plateau and the patient is able to progress independently towards their remaining short and long-term goals. The patient is discharged from [facility] hand therapy with a home exercise program. The patient will follow-up with the referring provider as needed. Next Treatment Session: Pt to follow up as needed. Visit frequency/duration: Pt instructed to follow up with therapy as needed before his next MD visit. Treatment Plan: AROM, nerve glides, desensitization, strengthening, edema control, scar management, modalities, manual therapy, patient education and training. Therapist Signature: Jerad Bell MS, OTR/L # [id number] Visit #3 Payor: BCBS / Plan: BCBS PMAP BLUE ADVANTAGE / Product Type: Medicaid / PECTING DRILLER HELPER documented in this encounter Plan of Treatment Upcoming Encounters Date Type Specialty Care Team Description 08/04/2022 Appointment Orthopedics Delgado Gottlieb MD [address] [place] [phone] (Wo rk) 10/08/2022 Appointment Orthopedics Delgado Gottlieb MD [address] [facility] [place] [phone] (Wo rk) 05/27/2023 Appointment Chemo Therapy/Infusion Services documented as of this encounter Visit Diagnoses Diagnosis Cubital tunnel syndrome on left - Primar y Lesion of ulnar nerve Aftercare following surgery of the muscu loskeletal system Aftercare following surgery of the muscu loskeletal system, NEC Loose body of left elbow Loose body in upper arm joint documented in this encounter Care Teams Yard Engineer Relationship Specialty Start Date End Date Ladan Song MD PCP - General Internal Medicine 08/18/17 09/29/21 documented as of this encounter
--- OUTSIDE RECORDS SUMMARY | 2022-07-29 11:10 | XMS_ITS | Encounter Summary ---
:1960 Author Organization [facility] Address [address] [place] [address] Care Team Providers Name Role Phone Eric Bower MD Primary Care Provider Reason for Visit Reason Comments QUESTIONS, GENERAL Encounter Details Date Type Department Care Team Description 08/05/2017 Telephone [facility] ANNI German Rob, QUESTIONS, GENERAL [address] [facility] [place], [place] [address] [address] [facility] [phone] [place] [address] (Wo rk) Social History Tobacco Use Types [...] as of this encounter Nursing Notes Freda Yao RN - 08/05/2017 4:38 PM CST Pt calling. Wanting to know what to expect with the surgical dressing. Explained that there would randy surgical dressing for 10-14 days. Then he would have a removable splint. Pt verbalized understanding and agreed to this plan. Pt also wondering why he is having the CTR. States this is not bothering him. Told him the EMG test does show that he has CTS. He will be able to talk with [facility] on the day of his surgery to discuss thisfurther. Pt verbalized understanding and agreed to this plan. Advised to call back with further questions or concerns to [phone]. ISION PRINTING WORKER documented in this encounter Plan of Treatment Upcoming Encounters Date Type Specialty Care Team Description 08/04/2022 Appointment Orthopedics Delgado Gottlieb MD [address] [place] [phone] (Wo rk) 10/08/2022 Appointment Orthopedics Delgado Gottlieb MD [address] [place], [place] [phone] (Gavi rk) 05/27/2023 Appointment Chemo Therapy/Infusion Services documented as of this encounter Visit Diagnoses Not on filedocumented in this encounter Care Teams Meter Tester Polyphase Relationship Specialty Start Date End Date Eric Bower MD PCP - General 12/10/10 08/17/[address] [place] [address] [address] [place] [address] documented as of this encounter
--- OUTSIDE RECORDS SUMMARY | 2022-07-29 11:10 | XMS_ITS | Encounter Summary ---
:1960 Author Organization [facility] Address [address] [address] Care Team Providers Name Role Phone Ladan Song MD Primary Care Provider Unavailable Reason for Referral Procedure/Equipment (Routine) - Incomplete Specialty Diagnoses / Procedures Referred By Contact Refer red To Contact Diagnoses Low back pain, unspecified back pain laterality, unspecified chronicity, with sciatica presence unspecified (HRC) Giovanni Wilson MD Procedures FL C Arm [address] [facility] [place] [address] Referral ID Status Reason Start Date Expiration Date Visits V isits Requested Authorized [id number] Incomplete 06/07/2018 09/06/2019 1 1 Reason for Visit Reason Comments BACK PAIN, LOW Encounter Details Date Type Department Care Team Description 06/07/2018 Office Visit [facility] Giovanni Wilson juani k pain, unspecified back pain laterality, unspecified chronicity, with sciatica presence unspecified (HRC) (Primary Dx); MELANIA Dooley MD Displacement of lumbar intervertebral di sd [address] [facility] [address] [facility] [place] [address] [phone] Social History Tobacco Use Types Packs/Day Years [...] - - Weight 79.4 kg (175 lb) 06/07/2018 8:05 AM CDT Height 182.9 cm (6') 06/07/2018 8:05 AM CDT Body Mass Index 23.73 06/07/2018 8:05 AM CDT documented in this encounter Patient Instructions Patient InstructionsCassi Darden LPN - 06/07/2018 8:[address] Giovanni Wilson MD [facility] Spine Precision Instrument Maker And Repairer: Anya Pittman Please contact Anya for all administrative questions at [phone] Please contact the Spine Nurse for all medical related questions at [phone] Office Hours: Thursday-Thursday and AM Medication Requests: Prescriptions are not filled on Weekends or on Weekdays after 3:00PM For all medication refills: Request a refill using MyChart or contact your Pharmacy documented in this encounter Progress Notes Giovanni Wilson MD - 06/07/2018 12:00 PM CDT NAME: LAZ LUNA MR#: [id number] CSN: [id number] AUTHENTICATING CLINICIAN: Giovanni Wilson MD CONFIRM #: [id number] LOC: 711 CLINIC PROGRESS NOTE DATE OF VISIT: 06/07/2018 : 1960 NEW VISIT: CHIEF COMPLAINT: Radicular left leg pain and weakness. 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 He is seen today at the request of Dr. Miller, who has done surgery on his left elbow in the past. Ed presents today in the company of his . He describes a 3-month history of left anterior thigh discomfort, loss of feeling, and weakness in the quads. He has had recent CT scan imaging of the lumbar spine through the [facility] system, which confirms disk bulging at L2-3 impinging the traversing L3 nerve root as well as L4-5 impinging the traversing 5th roots. He has virtually no post posterior buttock or posterior leg pain. All of his symptoms are anterior. The CT scan also describes moderately severe central canal stenosis. He does confirm that his legs get tired when he walks, although he freely states he really does not walk very far and has not challenged that. PAST MEDICAL HISTORY: Includes presence of a pacemaker. He is otherwise healthy. SOCIAL HISTORY: He is accompanied today by his . 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 PHYSICAL EXAM: Shows a very affable, slim gentleman with a very dry sense of humor. He stands with a slightly forward flexed posture, and I suspect he has some significant facet arthropathy clinically. His spinal motion is reasonably intact. He can walk on heels and toes. In the sitting position, there is mild weakness to the left hip flexor, but quad strength remains intact. Negative straight leg raise. He has diminished light-touch sensation over the medial anterior thigh through the mid zone. I think his primary culprit is at L2-L3. We talked about the treatment options. At this point, he would like to proceed with a lumbar epidural. I will order this as a left L3-4 transforaminal to best capture that 3rd root. He will follow up with me 2 weeks after the injection to review results. I did caution him today that the injection, of course, will not change his underlying anatomy, and given the presence of his already moderately severe central canal stenosis and some symptoms of neurogenic claudication, in the future he may require surgical intervention, but we will see how well he can respond to the epidural first. FINAL ASSESSMENT: Lumbar disk protrusion. CC: AZIZA MILLER MD [address] [place] [address] DAA:MEDQ C: R:06/07/18 12:40 CONFIRM#:[id number] documented in this encounter Plan of Treatment Upcoming Encounters Date Type Specialty Care Team Description 08/04/2022 Appointment Orthopedics Delgado Gottlieb MD [address] [place], [place] [phone] (Wo rk) 10/08/2022 Appointment Orthopedics Delgado Gottlieb MD [address] [place] [phone] (Wo rk) 05/27/2023 Appointment Chemo Therapy/Infusion Services documented as of this encounter Results FL C Arm 20 Pain Management (07/07/2018 9:13 AM CDT) Anatomical Region Laterality Modality Radiographic Imaging Specimen (Source) Anatomical Location Collection Method / Collectio n Time Received Time / Laterality Volume Narrative 07/07/2018 9:16 AM CDT Images obtained during surgical procedure. Giovanni Wilson MD RAD FL documented in this encounter Visit Diagnoses Diagnosis Low back pain, unspecified back pain lat erality, unspecified chronicity, with sciatica presence unspecified (HRC) - Pr imary Displacement of lumbar intervertebral di sc (HRC) Displacement of lumbar intervertebral di sc without myelopathy Lumbar radiculopathy - Primary Thoracic or lumbosacral neuritis or radi culitis, unspecified Low back pain, unspecified back pain lat erality, unspecified chronicity, with sciatica presence unspecified (HRC) documented in this encounter Care Teams Cargo And Ramp Services Manager Relationship Specialty Start Date End Date Ladan Song MD PCP - General Internal Medicine 08/18/17 09/29/21 documented as of this encounter
--- OUTSIDE RECORDS SUMMARY | 2022-07-29 11:10 | XMS_ITS | Encounter Summary ---
:1960 Author Organization [facility] Address [address] [place] [address] Care Team Providers Name Role Phone Ladan Song MD Primary Care Provider Unavailable Reason for Visit Reason Comments ARM PAIN left Encounter Details Date Type Department Care Team Description 10/06/2017 Office Visit [facility] German Miller Hist ory [facility] surgery (Primary Dx) [address] [facility] [address] [place] [address] [place] [address] [place], [place] [phone] (Wo rk) Social History Tobacco Use Types [...] Patient Instructions Patient InstructionsKAmol boland, OA - 10/06/2017 9:[address] German Miller MD Hand & Upper Extremity Surgeon Engraver Optical Frames: Lalitha Watson Please contact Lalitha for all surgery scheduling and administrative questions at [phone] Hand Nurse: Leonardo Yao Please contact Leonardo for all medical related questions at [phone] Medication Requests: Prescriptions are not filled on Weekends or on Weekdays after 3:00PM For all medication refills: Request a refill using [employer] microcaps or contact your Pharmacy Please call [phone] to make future appointments. Follow up in 6 weeks as tolerated TRIC SERVICEMAN documented in this encounter Progress Notes German Miller MD - 10/06/2017 9:00 AM CST [facility] Postoperative Follow-Up 10/06/2017 History of Present Illness: Laz Luna is a 57 y.o. male status-post left ulnar nerve submuscular transposition, elbow capsulectomy, and open debridement and loose body removal completed on 08/18/2017 who presents for routine postoperative follow-up. He patient reports significant improvement after surgery and has no pain except w hen he rests his arm on the scar. He now has sensation back in his small finger. Physical Exam: General: Healthy appearing male. Affect appropriate. Normal gait. Alert and oriented x 3. Skin: Incisions well-healed. No erythema or ecchymosis. Cardiovascular/Neuro: Sensation intact to light touch in all digits. Fingertips pink and well-perfused. Capillary refill less than two seconds. Left Elbow: The surgical wound is healed and benign. Static two-point discrimination is 5 mm in all the fingers. Range of motion is full. Assessment: Diagnosis and Associated Orders ICD-10-CM 1. Status-post left ulnar nerve submuscular transposition, elbow capsulectomy, and open debridement and loose body removal Z98.890 Plan: I recommended the patient return to normal activity as tolerated. He may discontinue use of his elbow brace, pad, and compression sleeve. Follow-up in six weeks. Scribe Disclosure: I, Wellington Mendez, am serving as a scribe to document [...] (b) the recordis accurate. German Miller MD TRIC SERVICEMAN documented in this encounter Plan of Treatment Upcoming Encounters Date Type Specialty Care Team Description 08/04/2022 Appointment Orthopedics Delgado Gottlieb MD [address] [place], [place] [phone] (Wo rk) 10/08/2022 Appointment Orthopedics Delgado Gtotlieb MD [address] [place], [place] [address] (Wo rk) 05/27/2023 Appointment Chemo Therapy/Infusion Services documented as of this encounter Visit Diagnoses Diagnosis History of elbow surgery - Primary Personal history of surgery to other org ans documented in this encounter Care Teams Yeast Culture Developer Relationship Specialty Start Date End Date Ladan Song MD PCP - General Internal Medicine 08/18/17 09/29/21 documented as of this encounter
--- OUTSIDE RECORDS SUMMARY | 2022-07-29 11:10 | XMS_ITS | Encounter Summary ---
:1960 Author Organization [facility] Address [address] [place] [address] Care Team Providers Name Role Phone Eric Bower MD Primary Care Provider Reason for Visit Reason Onset Date Comments RESULTS, TEST 12/17/2016 Encounter Details Date Type Department Care Team Description 12/17/2016 Telephone [facility] ANNI German Rob MD RESULTS, TEST [address] [facility] [place], [place] [address] [place] [address] [phone] (Wo rk) Social History Tobacco Use Types [...] documented as of this encounter Nursing Notes Josi Jenkins LPN - 12/18/2016 9:29 AM CDT Results given to Dr. Burgess Rahel Decker MD - 12/17/2016 6:47 PM CDT Josi, please give results to Dr. Henry's team. Freda Yao, RN - 12/17/2016 12:27 PM CDT Pt calling via vm. He had the EMG done on 12/11/16. Is wanting to know the results. Ok to call and discuss with . Called 's cell number. LM on VM to call and schedule a f/u with [facility] to discuss the EMG results and plan moving forward. Routing to Dr. Decker as results are not available. documented in this encounter Plan of Treatment Upcoming Encounters Date Type Specialty Care Team Description 08/04/2022 Appointment Orthopedics Delgado Gottlieb MD [address] [place], [place] [phone] (Wo rk) 10/08/2022 Appointment Orthopedics Delgado Gottlieb MD [address] [place], [place] [phone] (Wo rk) 05/27/2023 Appointment Chemo Therapy/Infusion Services documented as of this encounter Visit Diagnoses Not on filedocumented in this encounter Care Teams Pallet Stone Inserter Relationship Specialty Start Date End Date Eric Bower MD PCP - General 12/10/10 08/17/17 [address] [facility] [address] [place] [address] documented as of this encounter
--- OUTSIDE RECORDS SUMMARY | 2022-07-29 11:10 | XMS_ITS | Encounter Summary ---
:1960 Author Organization [facility] Address [address] [place] [address] Care Team Providers Name Role Phone Eric Bower MD Primary Care Provider Reason for Visit Procedure/Equipment (Routine) - Incomplete Specialty Diagnoses / Procedures Referred By Contact Refer red To Contact Diagnoses Arthritis of left elbow German Miller MD Procedures CT Elbow Lt WO IV Cont [address] [facility] [place], [place] [address] Referral ID Status Reason Start Date Expiration Date Visits V isits Requested Authorized [id number] Incomplete 11/03/2016 02/02/2018 1 1 Encounter Details Date Type Department Care Team Description 11/03/[address] Scan German Miller, Arthritis of left elbow [address] [place] [address] [address] [facility] [phone] [place], [place] [address] (Wo rk) Social History Tobacco Use Types [...] 08/04/2022 Appointment Orthopedics Delgado Gottlieb MD [address] [place], [place] [phone] (Gavi rk) 10/08/2022 Appointment Orthopedics Delgado Gottlieb MD [address] [place], [place] [phone] (Gavi presley) 05/27/2023 Appointment Chemo Therapy/Infusion Services documented as of this encounter Procedures Procedure Name Priority Date/Time Associated Diagnosis Comme nts CT ELBOW LT WO IV Routine 11/03/2016 1:56 PM Arthritis of left Results for this CONT KALSOMINER elbow procedure are i n the results section. documented in this encounter Results CT Elbow Lt WO IV Cont (11/03/2016 1:56 PM KALSOMINER) Anatomical Region Laterality Modality Upper Extremity, Forearm, Arm, Elbow Com puted Tomography Specimen (Source) Anatomical Collection Method Collection Time Re ceived Time Location / / Volume Laterality 11/03/2016 1:32 PM KALSOMINER Impressions 11/03/2016 2:49 PM KALSOMINER IMPRESSION: ??Moderate osteoarthritic changes and multiple ossific joint bodies. Narrative 11/03/2016 2:49 PM KALSOMINER TECHNIQUE: ??Thin section axial scans were obtained [...] joint bodies. German Miller MD RAD CT documented in this encounter Visit Diagnoses Diagnosis Arthritis of left elbow documented in this encounter Care Teams Yard Clerk Relationship Specialty Start Date End Date Eric Bower MD PCP - General 12/10/10 08/17/[address] [phone] documented as of this encounter
--- OUTSIDE RECORDS SUMMARY | 2022-07-29 11:10 | XMS_ITS | Encounter Summary ---
:1960 Author Organization [facility] Address [address] [place] [address] Care Team Providers Name Role Phone Ladan Song MD Primary Care Provider Unavailable Reason for Visit Procedure/Equipment (Routine) - Canceled Specialty Diagnoses / Procedures Referred By Contact Refer red To Contact Diagnoses No diagnosis or condition on [place] (HRC) German Miller MD Procedures FL C Arm Mini [address] [facility] [place], [place] [address] Referral ID Status Reason Start Date Expiration Date Visits V isits Requested Authorized [id number] Canceled 08/18/2017 11/17/2018 1 1 Encounter Details Date Type Department Care Team Description 08/18/2017 Hospital Encounter [facility] German Miller No diagnosis or [address] Ramirez Motta MD condition on [address] [facility] [address] [place] [facility] [phone] Social History Tobacco Use Types Packs/Day Years [...] allopurinol (ZYLOPRIM) 1 10/28/2016 300 MG tablet furosemide (LASIX) 40 3 10/28/2016 MG tablet Sennosides (SENOKOT OR) 0 acetaminophen (TYLENOL Take 650 mg by mouth 0 10/02/2021 ARTHRITIS PAIN) 650 MG every 8 hours as controlled release needed for Pain. tablet acetaminophen (TYLENOL) Take 1 Tab by mouth 100 Tab 11 08/201706/26/2021 500 MG tablet every 4 hours as needed for Pain (Mild Pain). Maximum acetaminophen dose is 4000 mg in 24 hours cyanocobalamin 3 10/28/2016 06/26/2021 (MKZBJTHW35) 1000 MCG/ML injection HYDROmorphone Take 1-2 Tabs by mouth 30 Tab 0 08/18/2017 04/08/2018 (DILAUDID) 2 MG tablet every 4 hours as needed for Pain (Severe Pain). This medication may be safely taken with ibuprofen or naproxen ibuprofen (MOTRIN) 200 Take 2 Tabs by mouth 100 Tab 0 08/201701/27/2022 MG tablet every 6 hours as needed for Pain (Mild Pain). This may be safely mixed with the prescription pain medications (oxycodone, hydrocodone or tramadol.)?? This may also be safely mixed with acetaminophen. documented as of this encounter Plan of Treatment Upcoming Encounters Date Type Specialty Care Team Description 08/04/2022 Appointment Orthopedics Delgado Gottlieb MD [address] [place], [place] [address] (Gavi presley) 10/08/2022 Appointment Orthopedics Delgado Gottlieb MD [address] [place], [place] [address] (Gavi presley) 05/27/2023 Appointment Chemo Therapy/Infusion Services documented as of this encounter Visit Diagnoses Diagnosis No diagnosis or condition on [place] II (HR C) Observation of other suspected mental co ndition documented in this encounter Care Teams Mechanical Detailer Relationship Specialty Start Date End Date Ladan Song MD PCP - General Internal Medicine 08/18/17 09/29/21 documented as of this encounter
--- OUTSIDE RECORDS SUMMARY | 2022-07-29 11:10 | XMS_ITS | Encounter Summary ---
:1960 Author Organization [facility] Address [address] [place] [address] Care Team Providers Name Role Phone Ladan Song MD Primary Care Provider Unavailable Reason for Visit (Routine) - Incomplete Specialty Diagnoses / Procedures Referred By Contact Refer red To Contact Procedures Giovanni Wilson MD Foreign Image(s) CT L-Spine [address] [place] [address] Dr DELGADO IV Cont [place], [place] [address] Referral ID Status Reason Start Date Expiration Date Visits V isits Requested Authorized [id number] Incomplete 06/07/2018 09/06/2019 1 1 Encounter Details Date Type Department Care Team Description 04/21/2018 Imaging Radiology PACS Giovanni Wilson MD [address] [place] [address] [place] [address] [address] [address] (Gavi rk) Social History Tobacco Use Types [...] Specialty Care Team Description 08/04/2022 Appointment Orthopedics Delgdao Gottlieb MD [address] [place] [address] [place] [phone] (Wo rk) 10/08/2022 Appointment Orthopedics Delgado Gottlieb MD [address] [place] [phone] (Wo rk) 05/27/2023 Appointment Chemo Therapy/Infusion Services documented as of this encounter Procedures Procedure Name Priority Date/Time Associated Diagnosis Comme nts FOREIGN IMAGE(S) CT Routine 04/21/2018 12:00 AM R esults for this L-SPINE WO IV CONT CDT procedure are in the results section. documented in this encounter Results Foreign Image(s) CT L-Spine WO IV Cont (04/21/2018 12:00 AM CDT) Specimen (Source) Anatomical Location Collection Method / Collectio n Time Received Time / Laterality Volume Narrative PN POCT - 06/07/2018 8:04 AM CDT These outside images have been uploaded into PACS. If the results were provided, they will be located in the id chai's chart under the Media or Imaging tab. Giovanni Wilson MD RAD NON-REPORTABLES Performing Organization Address City/State/ZIP Code Phon e Number POCT PN POCT documented in this encounter Visit Diagnoses Not on filedocumented in this encounter Care Teams Manager Vehicle Relationship Specialty Start Date End Date Ladan Sogn MD PCP - General Internal Medicine 08/18/17 09/29/21 documented as of this encounter
--- OUTSIDE RECORDS SUMMARY | 2022-07-29 11:10 | XMS_ITS | Encounter Summary ---
:1960 Author Organization [facility] Address [address] [place] [address] Care Team Providers Name Role Phone Ladan Song MD Primary Care Provider Unavailable Reason for Visit Reason Comments ARM PAIN post op Encounter Details Date Type Department Care Team Description 11/17/2017 Office Visit German Wei Status post musculoskeletal system surgery (Primary Dx); MELANIA CMD Aftercare following surgery of the [facility] [place] [place] [facility] [address] [facility] [address] [place] [address] [place] [address] [phone] Social History Tobacco Use Types Packs/Day Years [...] Patient Instructions Patient InstructionsKAmol boland, OA - 11/17/2017 9:[address] German Miller MD Hand & Upper Extremity Surgeon Mobile Home Mechanic: Lalitha Watson Please contact Lalitha for all surgery scheduling and administrative questions at [phone] Hand Nurse: Leonardo Yao Please contact Leonardo for all medical related questions at [phone] Medication Requests: Prescriptions are not filled on Weekends or on Weekdays after 3:00PM For all medication refills: Request a refill using [facility] or contact your Pharmacy Please call [phone] to make future appointments. Follow up as needed documented in this encounter Progress Notes German Miller MD - 11/17/2017 9:00 AM CDT [facility] Postoperative Follow-Up 11/17/2017 History of Present Illness: Laz Luna is a 57 y.o. male status-post left ulnar submuscular transposition, capsulectomy, and opendebridement and loose body removal completed on 08/18/17 who presents for routine postoperative follow-up. I last evaluated the patient on 10/06/17 at which time he reported significant improvement after surgery with No pain aside from when he rests his arm on the scar. He also noted that he has sensation back in his small finger. Today, the patient reports that he is doing well. He states that he did have an episode of pain in his left forearm last week when he was shoveling. He does also note occasional pain if he rests his arm on his armrest while driving. He otherwise denies any pains or further concerns. Physical Exam: General: Healthy appearing male. Affect appropriate. Normal gait. Alert and oriented x 3. Skin: Incisions well-healed. No erythema or ecchymosis. Cardiovascular/Neuro: Static two point discrimination is 5 mm in all fingers. Fingertips pink and well-perfused. Capillary refill less than two seconds. Left Elbow: Great range of motion. Left Hand/Wrist: There is mild atrophy. No clawing. Full range of motion. 5/5 strength in abductor pollicis brevis. 4+/5 strength in first dorsal interosseus and abductor digiti minimi. Assessment: Diagnosis and Associated Orders ICD-10-CM 1. Status post ulnar submuscular transposition, capsulectomy, and open debridement and loose body removal Z98.890 2. Aftercare following surgery of the musculoskeletal system Z47.89 Plan: The patient is doing well today. I do not think he injured anything with the pain he had recently with shoveling. I recommended the patient return to normal activity as tolerated. Follow-up on a PRN basis. Scribe Disclosure: I, Alexandre Gan, am serving as a scribe to document [...] 08/04/2022 Appointment Orthopedics Delgado Gottlieb MD [address] [place], [place] [address] (Gavi presley) 10/08/2022 Appointment Orthopedics Delgado Gottlieb MD [address] [place], [place] [address] (Gavi presley) 05/27/2023 Appointment Chemo Therapy/Infusion Services documented as of this encounter Visit Diagnoses Diagnosis Status post musculoskeletal system surge ry - Primary [place]care [place] [facility] [place] [facility] documented in this encounter Care Teams Snout Puller Relationship Specialty Start Date End Date Ladan Song MD PCP - General Internal Medicine 08/18/17 09/29/21 documented as of this encounter
--- OUTSIDE RECORDS SUMMARY | 2022-07-29 11:10 | XMS_ITS | Encounter Summary ---
:1960 Author Organization Replaced by [facility] Address [address] [place] [address] Care Team Providers Name Role Phone Ladan Song MD Primary Care Provider Unavailable Reason for Visit Reason Comments Pre-procedure Call Encounter Details Date Type Department Care Team Description 07/01/2018 Telephone [facility] Vicky Barrios RN Pre-procedure Call [address] [place], [place] [address] Social History Tobacco Use Types [...] Description 08/04/2022 Appointment Orthopedics Delgado Gottlieb MD [address] [place] [phone] (aGvi presley) 10/08/2022 Appointment Orthopedics Delgado Gottlieb MD [address] [place] [phone] (Gavi presley) 05/27/2023 Appointment Chemo Therapy/Infusion Services documented as of this encounter Visit Diagnoses Not on filedocumented in this encounter Care Teams Road Roller Operator Hot Mix Relationship Specialty Start Date End Date Ladan Song MD PCP - General Internal Medicine 08/18/17 09/29/21 documented as of this encounter
--- OUTSIDE RECORDS SUMMARY | 2022-07-29 11:10 | XMS_ITS | Encounter Summary ---
:1960 Author Organization [facility] Address [address] [place] [address] Care Team Providers Name Role Phone Eric Bower MD Primary Care Provider Encounter Details Date Type Department Care Team Description 08/17/2017 Notes/Orders [facility] German Rob MD [address] [facility] [place] [facility] [address] [facility] [address] [place] [address] [place], [place] [address] (Gavi presley) Social History Tobacco Use Types [...] Appointment Orthopedics Delgado Gottlieb MD [address] [place], [place] [address] (Gavi presley) 10/08/2022 Appointment Orthopedics Delgado Gottlieb MD [address] [place], [place] [address] (Gavi presley) 05/27/2023 Appointment Chemo Therapy/Infusion Services documented as of this encounter Visit Diagnoses Not on filedocumented in this encounter Care Teams Carriage Setter Relationship Specialty Start Date End Date Eric Bower MD PCP - General 12/10/10 08/17/[address] [place] [phone] documented as of this encounter
--- OUTSIDE RECORDS SUMMARY | 2022-07-29 11:10 | XMS_ITS | Encounter Summary ---
:1960 Author Organization [facility] Address [address] [facility] [place] [address] Care Team Providers Name Role Phone Ladan Song MD Primary Care Provider Unavailable Reason for Visit Procedure/Equipment (Routine) - Incomplete Specialty Diagnoses / Procedures Referred By Contact Refer red To Contact Procedures German Miller MD Foreign Image(S) XR Elbow [address] [facility] [place] [address] Referral ID Status Reason Start Date Expiration Date Visits V isits Requested Authorized [id number] Incomplete 04/08/2018 07/08/2019 1 1 Encounter Details Date Type Department Care Team Description 02/14/2018 Imaging Radiology PACS German Miller MD [address] [place] [address] [place] [address] (Wo rk) Social History Tobacco Use Types [...] 08/04/2022 Appointment Orthopedics Delgado Gottlieb MD [address] [place] [address] [place] [phone] (Wo rk) 10/08/2022 Appointment Orthopedics Delgado Gottlieb MD [address] [place] [address] (Wo rk) 05/27/2023 Appointment Chemo Therapy/Infusion Services documented as of this encounter Procedures Procedure Name Priority Date/Time Associated Diagnosis Comme nts FOREIGN IMAGE(S) XR Routine 02/14/2018 12:00 AM R esults for this ELBOW LT CDT procedure are i n the results section. documented in this encounter Results Foreign Image(S) XR Elbow Lt (02/14/2018 12:00 AM CDT) Specimen (Source) Anatomical Location Collection Method / Collectio n Time Received Time / Laterality Volume Narrative PN POCT - 04/08/2018 7:23 AM CDT These outside images have been uploaded into PACS. If the results were provided, they will be located in the sulema paula's chart under the Media or Imaging tab. German Miller MD RAD NON-REPORTABLES Performing Organization Address City/State/ZIP Code Phon e Number POCT PN POCT documented in this encounter Visit Diagnoses Not on filedocumented in this encounter Care Teams Destination Sign Repairer Relationship Specialty Start Date End Date Ladan Song MD PCP - General Internal Medicine 08/18/17 09/29/21 documented as of this encounter
--- OUTSIDE RECORDS SUMMARY | 2022-07-29 11:10 | XMS_ITS | Encounter Summary ---
:1960 Author Organization [facility] Address [address] [place] [address] Care Team Providers Name Role Phone Ladan Song MD Primary Care Provider Unavailable Reason for Referral Therapies (Routine) - Closed Specialty Diagnoses / Procedures Referred By Contact Refer red To Contact Diagnoses Cubital tunnel syndrome on left Stiffness of left elbow joint German Miller MD [address] [facility] [place], [place] [address] Referral ID Status Reason Start Date Expiration Date Visits Requ ested Visits Authorized [id number] Closed 08/18/2017 10/17/2017 1 1 Scheduling Instructions Your provider has recommended an appoint ment with [facility]. You may call [phone] to schedule your appoi ntment. If you do not schedule an appointment within the next 1 to 3 business days, we will call you to help arrange your appointment. We suggest you call your [facility] insurance company about your coverage and benefits for this appointment. ATTENDANT Encounter Details Date Type Department Care Team Description 08/18/2017 Hospital Encounter [facility] German Miller Cubital tunnel syndrome on left (Primary Dx); Bren Motta MD Stiffness of left elbow joint [address] [facility] [place] [address] [phone] Social History Tobacco Use Types Packs/Day Years [...] - - Weight 79.4 kg (175 lb) 08/17/2017 11:02 AM MILL ATTENDANT Height 182.9 cm (6') 08/17/2017 11:02 AM MILL ATTENDANT Body Mass Index 23.73 08/17/2017 11:02 AM MILL ATTENDANT documented in this encounter Discharge Instructions Discharge Instr - Other German Ochoa MD - 08/18/2017 4:44 PM MILL ATTENDANT Home Care following Hand Surgery Diet You may resume your regular diet. During the evening following surgery, drink plenty of fluids and eat a light supper. Discomfort The amount of discomfort is unpredictable. If you have pain that cannot be controlled with your prescription and/or an anti-inflammatory, notify your physician. Do not drink alcoholic beverages while taking prescription pain medication. Fever A low grade fever (not more than 101 degrees) is common after this procedure. Do not hesitate to notify your physician if your fever seems excessive. Activity Elevate the operative extremity above the level of the heart for the next 48-72 hours. Light use of the hand for activities of daily living is permitted. Dressing Keep your dressing clean, dry, and in good condition. Your post operative dressing will be removed next week in hand therapy. You may then begin to bathe and get your wound wet. Your sutures are under the skin and do not need to be removed. Contact your physician for A fever more than 101 degrees, a large amount of bleeding of drainage, swelling, pain, foul-smellingdrainage, redness, excessive tenderness at the operative site, or separation of the skin closure. Post-Surgical Care If you have any questions or concerns about your surgery or post-surgical care call [facility] ([phone]) and ask for nurse triage. Home Care following Regional Anesthesia Regional Anesthesia Regional anesthesia is an injection of a local anesthetic by an anesthesiologist into or around appropriate nerves to numb the area having surgery. Procedure The anesthesia used to numb your extremity will wear off in 12-24 hours. During that period you needto be careful (use your sling) to avoid injury to your affected extremity. While your extremity is numb, avoid bumping the extremity and contact with extreme heat or cold. Discomfort You may have a tingling and prickly sensation in your extremity as feeling begins to return. You also can expect some discomfort. The amount of discomfort is unpredictable. Begin your prescribed pain medication as soon as the block begins to wear off. Activity You may resume normal activities, wearing the sling for comfort and keeping your hand elevated for the next 48-72 hours. Contact your physician ([phone]) if you have any of these problems: ?? Continued numbness or increased numbness or tingling. ?? Swelling of the extremity that makes the dressing too tight. Take special note of either extremities that are cold to the touch or exhibit blue coloring. ?? Excessive bleeding or drainage. ?? Severe pain. ATTENDANT documented in this encounter Medications at Time [...] in 24 hours cyanocobalamin 3 10/28/2016 06/26/2021 ([id number]) 1000 MCG/ML injection HYDROmorphone Take 1-2 Tabs [...] with acetaminophen. documented as of this encounter H&P Notes German Miller MD - 08/18/2017 1:46 PM CST Surgery Update for Preop History and Physical For 08/18/2017 scheduled procedure Update to H&P includes: Patient and/or family denies any health changes since the H&P This patient has been evaluated by me today and has been found to be a suitable candidate for surgery. German Miller MD 08/18/2017 ATTENDANT Source Note - ProviderRoland MD - 08/17/2017 12:00 AM MILL ATTENDANT documented in this encounter Procedure Notes German Miller MD - 08/18/2017 4:29 PM CST BRIEF OPERATIVE NOTE Date of procedure: 08.18.2017 Pre op diagnosis: Left cubital tunnel syndrome, left elbow arthritis, left elbow loose bodies Post op diagnosis: Same Procedure: Left ulnar nerve submuscular transposition, Left elbow capsulectomy, Left elbow open debridement and loose body removal Surgeon: German Miller MD Assistants: ZULLY Beltran Findings: See dictated operative note Estimated blood loss: 10 ml Specimen: None Complications: None Disposition: Discharge home German Miller MD 4:31 PM 08/18/2017 ATTENDANT German Miller MD - 08/18/2017 12:00 PM CST NAME: LAZ LUNA MR#: [id number] CSN: [id number] AUTHENTICATING CLINICIAN: German Miller MD CONFIRM #: [id number] LOC: 1 OPERATIVE REPORT DATE OF OPERATION: 08/18/2017 : 1960 SURGEON: German Miller MD PREOPERATIVE DIAGNOSES: 1.Left cubital tunnel syndrome. 2.Left elbow arthritis. 3.Left elbow loose bodies. POSTOPERATIVE DIAGNOSES: 1.Left cubital tunnel syndrome. 2.Left elbow arthritis. 3.Left elbow loose bodies. PROCEDURE PERFORMED: 1.Left ulnar nerve submuscular transposition. 2.Left elbow capsulectomy. 3.Left elbow open debridement and loose body removal. SUPERVISOR [employer]ISH[employer]: BEBETO Milian, medical records assistant. ANESTHESIA: Brachial plexus block. ESTIMATED BLOOD LOSS: 10 mL. URINE OUTPUT: Not measured. FLUIDS: Refer to the anesthesia flow sheet. INDICATIONS: For surgical indications please refer to my clinic note found in the electronic medical record dated11/03/2016 and 01/06/2017. DESCRIPTION OF PROCEDURE: Upon completion of the informed consent process, the proper surgical site was verified and then marked with my initials. Mr. Luna was then given 2 g of preoperative Ancef. The left upper extremity was then prepped and draped in the standard sterile fashion. A well-padded sterile tourniquet was applied. A time- out was then completed. An incision in the retro-condylar groove was planned. The arm was exsanguinated with an elastic bandage and the tourniquet inflated to 250 mmHg. The planned incision was made. Dissection continued bluntly through the subcutaneous tissue, taking care to identify mobilize and protect the medial antebrachial cutaneous nerve. The ulnar nerve was then identified in the proximal aspect of the wound as it ran between the intermuscular septum and the triceps. I traced the nerve further proximally and the arcade of [place] was released. I then traced the nerve distally through the retro-condylar groove, and Logan's ligament was released. The ligament was very thick. The nerve was then traced into the fo rearm. The aponeurosis connecting the 2 heads of the FCU was divided. Again this was thickened and the nerve appeared compressed. The nerve was then traced into the forearm. A blue vessel loop was thenplaced around the nerve and used to gently retract the nerve in preparation for anterior transposition. Once the nerve was mobilized, we redirected our attention anteriorly. A full-thickness flap was raised off the flexor pronator origin. I next identified the raphe in the flexor pronator origin. A distally-based step-cut was then made in the flexor pronator origin, with the horizontal limb utilizingthis raphe. The raphe was excised. With the proximal 2/3 of the flexor pronator origin retracted, a c apsulotomy was made. The plane between the brachialis and the capsule was developed and an appendiceal was placed in that plane and an anterior capsulotomy was then performed. This gave very good exposure to the anterior aspect of the joint where there were several loose bodies that were removed with a rongeur. I also used a rongeur to remove the tip of the coronoid, as well as fixed hypertrophic overgrowth in the olecranon fossa. After the anterior compartment had been debrided, I turned my attention posteriorly. The posterior bundle of the ulnar collateral ligament was divided and it was notably t hickened. The medial triceps was elevated and the capsulotomy was made on the medial side of the joint. The triceps was retracted out of the way to gain exposure. The posterior joint capsule was excise. There were several large loose bodies in the posterior fossa which were removed. I then used a rongeur to remove the overgrowth on the tip of the olecranon, as well as the fixed overgrowth in the olecranon fossa. Upon completion of all of this, I was able to achieve full extension with gravity and flexion to approximately 140 degrees. I then excised the intermuscular septum, as well as the leading fascial edge of the FCU and the nerve was moved into its transposed bed. It was found to have a straight course and did not run over any sharp corners. The step-cut in the flexor pronator origin was repaired in a lengthened state using 3-0 Ethibond suture. Three stitches were placed. I ran my finger along the nerve to ensure that it had not been impaled by the suture and also to confirm that there was no compression. At the end of thecase, the nerve laid free, with no sites of compression. The wound was then irrigated with saline. The dermis was closed with 4-0 Vicryl and the skin with a running 4-0 Monocryl subcuticular stitch. A sterile dressing was applied. Mr. Luna tolerated the procedure well and there were no immediate complications. He returned to the recovery area in good condition. POSTOPERATIVE PLAN: Mr. Luna will be seen in hand therapy next week. He will have his postop dressing removed and he will be encouraged to work on active, active-assisted and passive range of motion exercises. He may use his hand for light basic everyday activities. He will be given a long arm posterior splint with the wrist included for protection, but I would encourage him to work on range of motion to prevent future stiffness. I would like to see him 6 weeks postop. MCW:MEDQ C: CONFIRM #: [id number] ATTENDANT documented in this encounter Plan of Treatment Upcoming Encounters Date Type Specialty Care Team Description 08/04/2022 Appointment Orthopedics Delgado Gottlieb MD [address] [place], [place] [address] (Wo rk) 10/08/2022 Appointment Orthopedics Delgado Gottlieb MD [address] [place], [place] [address] (Wo rk) 05/27/2023 Appointment Chemo Therapy/Infusion Services Scheduled Orders Name Type Priority Associated Diagnoses Order S chedule POCT Glucose: Point of Care Routine Once today st arting now for 1 Occurrences s tarting 08/18/2017 unti l 08/18/2017 POCT Glucose: Point of Care Routine Once today st arting now for 1 Occurrences s tarting 08/18/2017 unti l 08/18/2017 Scheduled Referrals Name Type Priority Associated Diagnoses Order S chedule Hand Occupational Therapy Referral Routine Cubital tunnel Ordered: 08/18/2017 syndrome on left Stiffness of left elbow joint documented as of this encounter Procedures Procedure Name Priority Date/Time Associated Diagnosis Comme nts BEDSIDE GLUCOSE Routine 08/18/2017 1:50 PM Result s for this MONITOR POCT MILL ATTENDANT procedure are i n the results section. POTASSIUM STAT 08/18/2017 1:35 PM Results f or this MILL ATTENDANT procedure are i n the results section. documented in this encounter Results Bedside Glucose Monitor (08/18/2017 1:50 PM MILL ATTENDANT) P athologist Signature Bedside Blood 118 mg/dL PN SOFT Glucose Test Comment: Performed at [address] [facility] [place] [address] Specimen Anatomical Collection Method Collection Time Receive d Time (Source) Location / / Volume Laterality 08/18/2017 1:50 PM 7 1:55 MILL ATTENDANT PM MILL ATTENDANT German Miller MD LAB_1 Performing Organization Address [facility] Phon e Number PN SOFT [address] [place] [address] POTASSIUM (08/18/2017 1:35 PM MILL ATTENDANT) athologist Signature Potassium 4.1 3.5 - 5.2 PN SOFT mmol/L Specimen Anatomical Collection Method Collection Time Receive d Time (Source) Location / / Volume Laterality 08/18/2017 1:35 PM 7 1:43 MILL ATTENDANT PM MILL ATTENDANT Narrative PN SOFT - 08/18/2017 2:31 PM MILL ATTENDANT Performed at [place] [address] [place] [address] CLIA number [id number] German Miller MD LAB_1 Performing Organization Address [facility] Phon e Number PN SOFT [address] [place] [address] documented in this encounter Visit Diagnoses Diagnosis Cubital tunnel syndrome on left - Primar y Lesion of ulnar nerve Stiffness of left elbow joint documented in this encounter Administered Medications Inactive Administered Medications - up to 3 most recent administrations Medication Order MAR Action Action Date Dose Rate Site fentaNYL (SUBLIMAZE) injection 25-50 mcg 25-50 mcg, Intravenous, [id number], Other, Moderate to Severe Pain (pain score 5 and above) in the immediate postop period when faster on-s et, short acting agent is desired., Starting on Thu08/18/17 at 16 53, Until Thu08/18/17 at 2043, Administer every 5 minutes as needed, to a maximum cumulative dose of 250 mcg. For patients with a regional, spinal, or local anesth etic, may give for anticipated pain as the anesthetic wears off., PACU/Recovery HYDROmorphone injectable 0.2-0.4 mg 0.2-0.4 mg, Intravenous, Q10MIN PRN, Oth er, : Moderate to Severe Pain (pain score 5 and above) in the immediate postop period when longer acting agent is desired., Starting on Thu08/18/17 at 1653, Until Thu08/18/17 at 2043, Maximum cumulative dose is 2 mg. For patients with a region al, spinal, or local anesthetic, may give for anticipated pain as the anesthetic wears off., PAC U/Recovery lactated ringers infusion 25 mL/hr, Intravenous, CONTINUOUS, Start ing on Thu08/18/17 at 1345, Administer on all preop surgery patients, ages 12 and older, unless specified differently in the Protocol for Preop Initiation of IV fluids Order Set., Pre-op lidocaine (XYLOCAINE) 1 % injection 0.1- 0.3 mL 0.1-0.3 mL, Subcutaneous, PRN, Other, for additional I V starts, Starting on Thu08/18/17 at 1322, Pre-op ondansetron (ZOFRAN) injection 4 mg 4 mg, Intravenous, Q4H PRN, Nausea, Vomiting, Starting on Thu08/18/17 at 1653, Until Thu08/18/17 at 2043, If multiple medications ar e ordered for nausea or vomiting - administer in the following priority based on medications ordered, effectiveness and availability: ondanset rk (ZOFRAN) > prochlorPERAZINE (COMPAZINE) > diphenhydrAMINE (BENADRYL) > hydrOXYzine HCl (VISTAR [place])> ePHEDrine > scopolamine (TRANSDERM-SCOP)., PACU/Recovery documented in this encounter Active and Recently Administered Medications Times are shown in MILL ATTENDANT. Scheduled Medication Order 08/16/2017 08/17/2017 08/18/2017 acetaminophen (TYLENOL) tablet 1,000 mg 1345 (Due) 1,000 mg, Oral, ONCE, Thu08/18/17 at 1345, For 1 dose , Give in pre-op., Pre-op ceFAZolin (aka ANCEF) 2 g in dextrose 100 ml IVPB 1345 (Due) 2 g, Intravenous, Administer over 30 Min utes, ONCE, Thu08/18/17 at 1345, For 1 dose, Infuse within 60 minutes prior to incision; Re-dose 1 gram IV every 4 hours after initial dose until incision closed., Pre-op fentaNYL (SUBLIMAZE) injection 25-50 mcg 1345 (Due) 25-50 mcg, Intravenous, ONCE, Thu at 1345, For 1 dose, Notify Anesthesiologist if total cumulative dose in excess of 250 mcg., Pre-op lidocaine (XYLOCAINE) 1 % injection 0.1-0.3 mL 1345 (Due) 0.1-0.3 mL, Subcutaneous, ONCE, 08/07 at 1345, For 1 dose, Lidocaine to be used for IV starts unless patient refuses., Pre-op midazolam (VERSED) injection 1-2 mg 134 (Due) 1-2 mg, Intravenous, ONCE, Thu08/18/17 at 1345, For 1 dose, Pre -op Continuous Medication Order 08/16/2017 08/17/2017 08/18/2017 lactated ringers infusion 1345 ( Due) 25 mL/hr, Intravenous, at 25 mL/hr, CONT INUOUS, Starting Thu08/18/17 at 1345, Administer on all preop surgery patients, ages 12 and older, unless specified differently in the Protocol for Preop Initiation of IV fluids Order Set., Pre-op PRN Medication Order 08/16/2017 08/17/2017 08/18/2017 acetaminophen (TYLENOL) tablet 325-650 mg 325-650 mg, Oral, Q4H PRN, Other, Mild P ain (pain score 1-4), Starting Thu08/18/17 at 1711, Give if able to take oral medications. Give for mild pain or if patient prefers acetaminophen over other options for pain (all pain scores)., Post-op fentaNYL (SUBLIMAZE) injection 25-50 mcg 25-50 mcg, Intravenous, [id number], Other, Moderate to Severe Pain (pain score 5 and above) in the immediate postop period when faster on-set, short acting agent is desired., Starting Thu08/18/17 at 1653 , Administer every 5 minutes as needed, to a maximum cumulative dose of 250 mcg. For patients with a regional, spinal, or local anesthetic, may give for anticipated pain as the anesthetic wears off., PACU/Recovery HYDROmorphone (DILAUDID) tablet 2-4 mg 2-4 mg, Oral, Q4H PRN, Other, Moderate P ain (pain score 5-7), Starting Thu08/18/17 at 1711, Post-op HYDROmorphone injectable 0.2-0.4 mg 0.2-0.4 mg, Intravenous, Q10MIN PRN, Oth er, : Moderate to Severe Pain (pain score 5 and above) in the immediate postop period when longer acting agent is desired., Starting Thu08/18/17 at 1653, Maximum cumulative dose is 2 mg. For patients w ith a regional, spinal, or local anesthetic, may give for anticipated pain as the anesthetic wears off., PACU/Recovery ibuprofen (MOTRIN) tablet 600 mg 600 mg, Oral, Q6H PRN, Other, Mild Pain (pain score 1-4), Starting Thu08/18/17 at 1711, Give if able to take oral medications. May give in addition to acetaminophen (TYLENOL) if pain not relieved by ac etaminophen (TYLENOL) OR if acetaminophe n (TYLENOL) has been given in the last 4 hours. Do not give ibuprofen and ketorolac together., Post-op lidocaine (XYLOCAINE) 1 % injection 0.1-0.3 mL 0.1-0.3 mL, Subcutaneous, PRN, Other, fo r additional IV starts, Starting Thu08/18/17 at 1322, Pre-op ondansetron (ZOFRAN) injection 4 mg 4 mg, Intravenous, Q4H PRN, Nausea, Vomi ting, Starting Thu08/18/17 at 1653, If multiple medications are ordered for nausea or vomiting - administer in the following priority based on medications ordere d, effectiveness and availability: ondan setron (ZOFRAN) > prochlorPERAZINE (COMPAZINE) > diphenhydrAMINE (BENADRYL) > hydrOXYzine HCl (VISTARIL)> ePHEDrine > scopolamine (TRANSDERM-SCOP)., PACU/Recovery documented in this encounter Care Teams Bonding Machine Operator Relationship Specialty Start Date End Date Ladan Song MD PCP - General Internal Medicine 08/18/17 09/29/21 documented as of this encounter
--- OUTSIDE RECORDS SUMMARY | 2022-07-29 11:10 | XMS_ITS | Encounter Summary ---
:1960 Author Organization [facility] Address [address] [place] [address] Care Team Providers Name Role Phone Eric Bower MD Primary Care Provider Reason for Visit Reason Comments Procedure Bilateral upper extremity EM G Encounter Details Date Type Department Care Team Description 12/11/2016 Procedure Visit [facility] Rahel Decker (Bilateral CENTER Imani Conteh MD upper extremity EMG) [address] [place] [address] [place] [address] [phone] Social History Tobacco Use Types Packs/Day Years [...] documented as of this encounter Progress Notes Rahel Decker MD - 12/17/2016 6:44 PM CDT Exam Date: 12/11/2016 Name: Laz Luna MR#: [id number] Gender: Male Date of : 1960 Age: 56 y Referring Physician: German Burgess MD Height: Examining Physician: Rahel Decker M.D. Impression: The patient presented for evaluation of the left upper extremity. For comparison with the left upper extremity findings; right upper extremity nerve conduction studies were also performed. There is electrophysiologic evidence of the bilateral upper extremities. 1. 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 2. Incidentally, there is a right ulnar neuropathy. This EMG is unable to localize to a specific site. 3. There is a left moderate median neuropathy at the wrist (carpal tunnel syndrome). 4. Incidentally, there is a right mild median neuropathy at the wrist (carpal tunnel syndrome). Thisupper extremity was evaluated for comparison. There is no electrophysiologic evidence of a left cervical radiculopathy. Summary: The right median motor nerve conduction study is normal. The right median antidromic sensory nerve conduction study showed prolonged distal latency. The right ulnar motor nerve conduction study showed normal distal latency, normal conduction velocity with reduced amplitude. The right ulnar antidromic sensory nerve conduction study showed mildly prolonged distal latency. The left median motor nerve conduction study showed prolonged distal latency. The left median antidromic sensory nerve conduction study showed prolonged distal latency. The left ulnar motor nerve conduction study showed prolonged distal latency, slowed conduction velocity around the elbow and reduced amplitude. The left ulnar antidromic sensory nerve conduction study showed prolonged distal latency. The concentric needle examination of the left upper extremity showed large motor unit potentials of the left ulnar innervated hand muscles. documented in this encounter Plan of Treatment Upcoming Encounters Date Type Specialty Care Team Description 08/04/2022 Appointment Orthopedics Delgado Gottlieb MD [address] [place] [phone] (Gavi presley) 10/08/2022 Appointment Orthopedics Delgado Gottlieb MD [address] [place], [place] [address] (Gavi presley) 05/27/2023 Appointment Chemo Therapy/Infusion Services documented as of this encounter Visit Diagnoses Diagnosis Carpal tunnel syndrome of left wrist [G5 6.02] - Primary Carpal tunnel syndrome Ulnar neuropathy of both upper extremiti es [G56.23] documented in this encounter Care Teams Machine Maintenance Mechanic Relationship Specialty Start Date End Date Eric Bower MD PCP - General 12/10/10 08/17/17 [address] [facility] [address] [place] [id number] documented as of this encounter
--- OUTSIDE RECORDS SUMMARY | 2022-07-29 11:10 | XMS_ITS | Encounter Summary ---
:1960 Author Organization [facility] Address [address] [place] [address] Care Team Providers Name Role Phone Ladan Song MD Primary Care Provider Unavailable Reason for Visit Reason Comments Elbow Problem Post Op Left ulnar nerve sub muscular transposition at elbow 08/18/17 Therapies (Routine) - Closed Specialty Diagnoses / Procedures Referred By Contact Refer red To Contact Diagnoses Cubital tunnel syndrome on left Stiffness of left elbow joint German Miller MD [address] [place] [address] [address] [place] 5543 1 Referral ID Status Reason Start Date Expiration Date Visits Requ ested Visits Authorized [id number] Closed 08/18/2017 10/17/2017 1 1 Encounter Details Date Type Department Care Team Description 08/25/2017 Office Visit [facility] German Miller Status post musculoskeletal system surgery (Primary Dx); MELANIA Motta MD Aftercare following surgery of the [facility] [address] [place] [address] [place] [phone] Social History Tobacco Use Types Packs/Day Years [...] documented as of this encounter Progress Notes German Miller MD - 08/25/2017 1:11 PM CST [facility] Postoperative Follow-Up 08/25/2017 History of Present Illness: Laz Luna is a 57 y.o. male status-post left ulnar nerve submuscular transposition, elbow capsulectomy and open debridement and loose body removal of left elbow completed on 08/18/2017 [facility] The patient is doing well with improved pain since surgery. He currently rates his pain at a 0/10 in severity. Reports he has intermittent numbness into his left ring finger. No further concerns were addressed. Physical Exam: General: Healthy appearing male. Affect appropriate. Normal gait. Alert and oriented x 3. Skin: Incisions well-healed and benign. No erythema. Positive for swelling and ecchymosis. Cardiovascular/Neuro: Sensation intact to light touch in all digits. Fingertips pink and well-perfused. Capillary refill less than two seconds. Left Hand/Wrist: Range of motion: flexion to 130 degrees and extension to -10 degrees. Imaging: Deferred. Assessment: Diagnosis and Associated Orders ICD-10-CM 1. Status post musculoskeletal system surgery Z98.890 status-post left ulnar nerve submuscular transposition, elbow capsulectomy and open debridement andloose body removal of left elbow completed on 08/18/2017 2. Aftercare following surgery of the musculoskeletal system Z47.89 Plan: We discussed the patient's postoperative recovery progress. I recommended placing the patient into aremovable splint, start formal hand therapy to improve his range of motion, and avoid heavy lifting and gripping. The patient verbalized agreement and understanding with this plan. Follow-up in one month for recheck. All questions were answered at this time. Scribe Disclosure: I, Haylee Morales, am serving as a scribe to document [...] (b) the recordis accurate. German Miller MD ANICAL LEAD documented in this encounter Plan of Treatment Upcoming Encounters Date Type Specialty Care Team Description 08/04/2022 Appointment Orthopedics Delgado Gottlieb MD [address] [place], [place] [address] (Wo rk) 10/08/2022 Appointment Orthopedics Delgado Gottlieb MD [address] [place], [place] [address] (Wo rk) 05/27/2023 Appointment Chemo Therapy/Infusion Services Scheduled Referrals Name Type Priority Associated Diagnoses Order S chedule Hand Occupational Therapy Referral Routine Cubital tunnel Ordered: 08/18/2017 syndrome on left Stiffness of left elbow joint documented as of this encounter Visit Diagnoses Diagnosis Status post musculoskeletal system surge ry - Primary [facility]care [facility] Aftercare following surgery of the [facility], [facility] documented in this encounter Care Teams Delivery Specialist Relationship Specialty Start Date End Date Ladan Song MD PCP - General Internal Medicine 08/18/17 09/29/21 documented as of this encounter
--- OUTSIDE RECORDS SUMMARY | 2022-07-29 11:10 | XMS_ITS | Encounter Summary ---
:1960 Author Organization [facility] Address [address], [place] [address] Care Team Providers Name Role Phone Ladan Song MD Primary Care Provider Unavailable Reason for Visit Reason Comments Appt. Work In Request Encounter Details Date Type Department Care Team Description 03/24/2018 Telephone [facility] German Miller, Appt . Work In Request CENTER [address] [place] [address] [place] [address] [place], [place] [phone] (Wo rk) Social History Tobacco Use Types [...] encounter Nursing Notes Freda Yao RN - 03/24/2018 2:05 PM CDT Pt calling via . Returned call. He made an appt to be seen for a new injury on his operative elbow. They referred himto talk to me to see if he could be seen sooner. Advised that [facility] would be out of the office, so there really wasn't anything sooner. Pt verbalized understanding and agreed to this plan. He will keep his scheduled appt. Advised that if this worsens, he could be seen in the [facility] as this is a new injury. Pt verbalized understanding and agreed to this plan. Advised to call back with further questions or concerns to [phone]. Freda Yao RN - 03/24/2018 9:34 AM CDT Pt calling via . He is status-post left ulnar submuscular transposition, capsulectomy, and open debridement and loose body removal completed on 08/18/17. He has been doing good. However, about 2 months ago, he fell and landed on his elbow. He thinks he reinjured it. It is sore, tender and bothering him. He did go to the [facility]. They did not see a fx. He would like an appt on . Pt does have an appt scheduled for 04/08/18 at 7:20 am. Returned call. The wireless caller you are trying to get ahold of is unavailable. Please try again later. Phone disconnected. documented in this encounter Plan of Treatment Upcoming Encounters Date Type Specialty Care Team Description 08/04/2022 Appointment Orthopedics Delgado Gottlieb MD [address] [place], [place] [address] (Gavi presley) 10/08/2022 Appointment Orthopedics Delgado Gottlieb MD [address] [place], [place] [address] (Gavi presley) 05/27/2023 Appointment Chemo Therapy/Infusion Services documented as of this encounter Visit Diagnoses Not on filedocumented in this encounter Care Teams Aircraft Cylinder Mechanic Relationship Specialty Start Date End Date Ladan Song MD PCP - General Internal Medicine 08/18/17 09/29/21 documented as of this encounter
--- OUTSIDE RECORDS SUMMARY | 2022-07-29 11:11 | XMS_ITS ---
:1960 Author Care Team Providers Name Role Phone [facility] Physical Therapist [phone] Allergies Code Code System Name Reaction Severity Status Onset [id number] RxNorm Cipro Swelling Severe Active ? Influenza a (H5N1) Virus Diarrhea Severe Activ e ? Vaccine Monoval (18 Yr +) Medications Name Status Start Date Stop Date ? ? alendronate 70 mg tablet Active ? Not margaux ilable allopurinol 300 mg tablet Active ? Not av ailable furosemide 40 mg tablet Active ? Not avai lable omeprazole 20 mg capsule,delayed release Active ? Not available tamsulosin 0.4 mg capsule Active ? Not av ailable Problems No Known Problems Procedures Date Name Performed by ? 09/07/2018 Hip Surgery Information not avai lable 09/07/2016 Pacemaker/Defibrillator Information not available 09/07/2015 Other Information not avai lable 09/07/2014 Other Information not avai lable 09/07/1988 Back Surgery Information not avai lable 12/20/2020 CT, Lumbar Spine, W/ Contrast Inspired S [facility] [address] [place], [place] [id number] (Work Place) 12/20/2020 XR, Lumbosacral Spine Inspired Spine [facility] [address] [place] [address] (Work Place) Results Lab Results None recorded. Past Encounters None recorded. Social History Tobacco Smoking Status Never Smoker Vaccine List Notes: Pt reports he is not UTD on inf luenza, pneumococcal, or covid vaccines. Plan of Care Reminders Provider Appointments None recorded. ? ? Lab None recorded. ? ? Referral None recorded. ? ? Procedures None recorded. ? ? Surgeries None recorded. ? ? Imaging None recorded. ? ? Vitals Height Weight BMI Blood Pressure 6 ft 170 lbs 23.1 kg/m2 128/78 mm[Hg]
--- OUTSIDE RECORDS SUMMARY | 2022-07-29 11:11 | XMS_ITS | Encounter Summary ---
:1960 Author Organization [facility] Address [address] [place] [address] Care Team Providers Name Role Phone Eric Bower MD Primary Care Provider Encounter Details Date Type Department Care Team Description 09/07/1989 PN Conversion Only VAT HOUSE LABORER [address] [facility] [facility] [address] [place] [address] (Gavi presley) Social History Tobacco Use Types Packs/Day Years Used Date Smoking Tobacco: Never Assessed Food Insecurity Answer Date Recorded Within the [...] 08/04/2022 Appointment Orthopedics Delgado Gottlieb MD [address] [place], [place] [address] (Gavi rk) 10/08/2022 Appointment Orthopedics Delgado Gottlieb MD [address] [place], [place] [address] (Gavi presley) 05/27/2023 Appointment Chemo Therapy/Infusion Services documented as of this encounter Visit Diagnoses Not on filedocumented in this encounter Care Teams Diversified Crops Ii Farmworker Relationship Specialty Start Date End Date Eric Bower MD PCP - General 12/10/10 08/17/17 [address] [facility] [address] [place] [address] documented as of this encounter
== END 2022-07-29 10:04 | disposition home or self-care (01) ==
LOC: WOUND 10:03
PROVIDERS: PCP Physician Assistant Surgical; Visit Provider Nurse Practitioner Family
DX: L89.894 Pressure ulcer of other site, stage 4 (principal)
CPT/HCPCS: 11042

== ENCOUNTER 2022-08-05 10:04 | Outpatient (CLI) | payer BC, SELFPAY ==
--- OUTSIDE RECORDS SUMMARY | 2022-08-05 10:08 | XMS_ITS | Clinical Summary ---
:1960 Author Organization [facility] Address [address] [place] [address] Care Team Providers Name Role Phone Elsewhere, Pcp Primary Care Provider Unavailable Source Comments Patient records contain information from all sites at [facility]. For routine questions regarding patient records, call [phone] during business hours, M-F 8:00 AM - 5:00 PM Central Time. Record requests for emergency care only can be directed to [phone] at any time.[facility] Allergies Active Allergy Reactions Severity Noted Date [...] Added automatically from request for emiliano rossi [id number] Fracture Hip Closed Initial Left 08/12/2019 021 [...] (178 lb 9.2 oz) 09/30/2021 8:25 AM LIEN SEARCHER Height 180.3 cm (5' 11) 06/21/2022 9:24 AM CDT Body Mass Index 24.22 08/12/2019 12:43 PM LIEN SEARCHER Plan of Treatment Health Maintenance Due Date [...] history exists Medical Devices Implanted Type Area Director Of Institutional Sales Device Shelf Model / Identifier Expiration Serial / Date Lot Lead 4076-52 Capsurefix Novus - Patel [id number] Cardiac Lead Heart Me dtronic / Implanted: Qty: 1 on 01/19/2017 [id number] / Description: Device Director Of Institutional Sales - [employer] Body Location - Other. Right Atrial. Device Status Text - CARD LEAD-1 [id number]. Clip Device Hemostatic 235 - [id number] Hardware e.g. N/A: [place] [id number] 01/12/2021 [id number] / Implanted: Qty: 1 on 04/13/2018 by Rene Skinner M.D. at [facility] pins/screws/rods Stomach Scientific / [id number] Description: Resolution clip Scrw Lck Mariano Ti T25 5x38 - [id number] Hardware e.g. Left: Hip Depuy Synthes [id number] / Implanted: Qty: 1 on 08/13/2019 by John Sebastian M.D. at [facility] pins/screws/rods / Pacemaker Chuy Toribio L101 - Patel [id number] Pacemaker Other/Legacy - Caleb ton / Implanted: Qty: 1 on 01/19/2017 See Implant Scientific [id number] / Description Description: Device Director Of Institutional Sales - [employer]. Body Location - Other. Left. Device Status Text - [id number]. Procedures Procedure Name Priority Date/Time Associated Comments [...] / Group Dates BLUE CROSS BCBS BLUE [id number] 2018-Prese ATTN: Angélica contreras HMO BLUE SHIELD PLUS HMO nt CONSUMER [facility] [place] [address] [address] [place] [address] Advance Directives For more information, please contact: [phone] Documents on File Type Date Recorded Patient Plate Setter Explanati on Advance Directives 11/17/2016 12:00 AM LegClever Sense doc ument. See document viewer. Advance Directives 09/19/2016 12:00 AM LegClever Sense doc ument. See document viewer. Latest Code [...] 4:16 PM 04/15/2018 9:11 PM Care Teams Edger Hand Relationship Specialty Start Date End Date Elsewhere, Pcp PCP - General Internal Medicine 06/21/22
--- OUTSIDE RECORDS SUMMARY | 2022-08-05 10:08 | XMS_ITS | Encounter Summary ---
:1960 Author Organization [facility] Address [address] [place] [address] Care Team Providers Name Role Phone Cintia Cobb M.D. Primary Care Provider [phone] Reason for Visit Physical Therapy (Routine) - Canceled Specialty Diagnoses / Procedures Referred By Contact Refer red To Contact Diagnoses Fracture Femur Lower Multiple Closed Initial Left (HCC) Nathen Burger M.D. [facility] Procedures PT Ongoing treatment [facility] [address] [address] Referral ID Status Reason Start Date Expiration Date Visits V isits Requested Authorized [id number] Canceled 10/22/2021 10/22/2022 40 40 Encounter Details Date Type Department Care Team Description 12/10/2021 Clinical Support Department of Gustavo Burger M.D. [address] [address] Fracture Femur Rehabilitation Lesli Dias, P.T. [address] [place] [phone] Lower Multiple Services in [place] Closed In itial [place], [place] ([facility]) [address] [place] [phone] Social History Tobacco Use Types Packs/Day [...] Lower Multiple Closed Initial Left (HCC) Payor: [employer] [facility] / Plan: BC BLUE PLUS HMO [...] pain TREATMENT Treatment today consisted of: Performed??the Journalism Online-Fit Total body ergometer times 15??minutes at a [...] documented as of this encounter Care Teams Fireworks Display Specialist Relationship Specialty Start Date End Date Cintia Cobb M.D. PCP - General 02/19/17 02/20/[address] [address] documented as of this encounter
--- OUTSIDE RECORDS SUMMARY | 2022-08-05 10:08 | XMS_ITS | Encounter Summary ---
:1960 Author Organization [facility] Address [address] [place] [address] Care Team Providers Name Role Phone Cintia Cobb M.D. Primary Care Provider [phone] Reason for Visit Physical Therapy (Routine) - Canceled Specialty Diagnoses / Procedures Referred By Contact Refer red To Contact Diagnoses Fracture Femur Lower Multiple Closed Initial Left (HCC) Nathen Burger M.D. [facility] Procedures PT Ongoing treatment [facility] [address] [address] Referral ID Status Reason Start Date Expiration Date Visits V isits Requested Authorized [id number] Canceled 10/22/2021 10/22/2022 40 40 Encounter Details Date Type Department Care Team Description 12/17/2021 Clinical Support Department of Gustavo Burger M.D. [address] [address] Fracture Femur Rehabilitation Lesli Dias, P.T. [address] [place] [phone] Lower Multiple Services in [place] Closed In itial [place], [place] ([facility]) [address] [place] [phone] Social History Tobacco Use Types Packs/Day [...] Lower Multiple Closed Initial Left (HCC) Payor: [employer] [facility] / Plan: [facility] [...] documented as of this encounter Care Teams Um Specialist Relationship Specialty Start Date End Date Cintia Cobb M.D. PCP - General 02/19/17 02/20/[address] [address] documented as of this encounter
--- OUTSIDE RECORDS SUMMARY | 2022-08-05 10:08 | XMS_ITS | Encounter Summary ---
:1960 Author Organization [facility] Address [address] [place] [address] Care Team Providers Name Role Phone Cintia Cobb M.D. Primary Care Provider [phone] Reason for Visit Physical Therapy (Routine) - Canceled Specialty Diagnoses / Procedures Referred By Contact Refer red To Contact Diagnoses Fracture Femur Lower Multiple Closed Initial Left (HCC) Nathen Burger M.D. [facility] Procedures PT Ongoing treatment [facility] [address] [address] Referral ID Status Reason Start Date Expiration Date Visits V isits Requested Authorized [id number] Canceled 10/22/2021 10/22/2022 40 40 Encounter Details Date Type Department Care Team Description 12/13/2021 Clinical Support Department of Gustavo Burger M.D. [address] [address] Fracture Femur Rehabilitation Lesli Dias, P.T. [address] [place] [phone] Lower Multiple Services in [place] Closed In itial [place], [place] ([facility]) [address] [place] [phone] Social History Tobacco Use Types Packs/Day [...] Lower Multiple Closed Initial Left (HCC) Payor: [employer] [place] CARE / Plan: BC BLUE PLUS HMO [...] LBP TREATMENT Treatment today consisted of: Performed??the toucanBox-Fit Total body ergometer times 15??minutes at a [...] documented as of this encounter Care Teams Electroplater Relationship Specialty Start Date End Date Cintia Cobb M.D. PCP - General 02/19/17 02/20/[address] [address] documented as of this encounter
--- OUTSIDE RECORDS SUMMARY | 2022-08-05 10:08 | XMS_ITS | Encounter Summary ---
:1960 Author Organization [facility] Address [address] [place] [address] Care Team Providers Name Role Phone Cintia Cobb M.D. Primary Care Provider [phone] Reason for Visit Reason Comments Med Refill Encounter Details Date Type Department Care Team Description 12/18/2021 Refill Department of [facility] Angélica Cobb Med Refill Medicine, Jose Daniel [facility]per M.D[facility] Clinic, in [address] [address] [place], [place] [address] [phone] Social History Tobacco Use Types Packs/Day Years [...] documented as of this encounter Care Teams Rebar Worker Relationship Specialty Start Date End Date Cintia Cobb M.D. PCP - General 02/19/17 02/20/[address] [place] [phone] documented as of this encounter
--- OUTSIDE RECORDS SUMMARY | 2022-08-05 10:08 | XMS_ITS | Encounter Summary ---
:1960 Author Organization [facility] Address [address] [place] [address] Care Team Providers Name Role Phone Elsewhere, Pcp Primary Care Provider Unavailable Reason for Visit Reason Comments Medical Information Encounter Details Date Type Department Care Team Description 2022 Nurse Triage Division of [facility] Soni Benjamin [facility] Internal Medicine, Angélica, R.NPili [facility] in [address] [place], [place] [address] [place] [phone] [place] [address] Social History Tobacco Use Types Packs/Day Years Used Date Smoking Tobacco: Never Smokeless Tobacco: Never Alcohol Use Standard Drinks/Week Comments No 0 (1 standard drink = 0.6 oz pure alcoho l) Sex Assigned at Date Recorded Not on file documented as of this encounter Miscellaneous Notes Telephone Encounter - Soni Benjamin R.N. - 2022 4:59 PM CDT Patient calls and states I fired Echo but was taken by ambulance to [place] and need to know if I need [...] documented as of this encounter Care Teams Supervising Broker Relationship Specialty Start Date End Date Elsewhere, Pcp PCP - General Internal Medicine 06/21/22 documented as of this encounter
--- OUTSIDE RECORDS SUMMARY | 2022-08-05 10:08 | XMS_ITS | Encounter Summary ---
:1960 Author Organization [facility] Address [address] [place] [address] Care Team Providers Name Role Phone Cintia Cobb M.D. Primary Care Provider [phone] Encounter Details Date Type Department Care Team Description 02/11/2022 Orders Only Department of [facility] Angélica Cobb Medicine, Jose Daniel Piper M.D. Clinic, [address] [address] [place], [place] [phone] (W ork) [phone] Social History Tobacco Use Types Packs/Day Years [...] documented as of this encounter Care Teams Bed Operator Relationship Specialty Start Date End Date Cintia Cobb M.D. PCP - General 02/19/17 02/20/[address] [place] [phone] documented as of this encounter
--- OUTSIDE RECORDS SUMMARY | 2022-08-05 10:08 | XMS_ITS | Encounter Summary ---
:1960 Author Organization [facility] Address [address] [place] [address] Care Team Providers Name Role Phone Elsewhere, Pcp Primary Care Provider Unavailable Reason for Visit Reason Comments Knee Injury Encounter Details Date Type Department Care Team Description 2022 Nurse Triage Department of [facility] Lesli Anguiano, Knee Injury Medicine in [facility] [address] [place] [address] Social History Tobacco Use Types [...] (bear weight) or walk Protocols used: Knee Ibmbbe-HOYQA-BU Care Advice Patient/Caregiver understands and will follow [...] documented as of this encounter Care Teams Submarine Element Coordinator Relationship Specialty Start Date End Date Elsewhere, Pcp PCP - General Internal Medicine 06/21/22 documented as of this encounter
--- OUTSIDE RECORDS SUMMARY | 2022-08-05 10:08 | XMS_ITS | Encounter Summary ---
:1960 Author Organization [facility] Address [address] [place] [address] Care Team Providers Name Role Phone Cintia Cobb M.D. Primary Care Provider [phone] Reason for Referral Outpatient (Routine) - Authorized Specialty Diagnoses / Procedures Referred By Contact Refer red To Contact Family Medicine Cintia Cobb SE, M.D. [address] [place] [phone] Referral ID Status Reason Start Date Expiration Date Visits V isits Requested Authorized [id number] Authorized 01/01/2022 01/01/2023 1 1 utpatient (Routine) - Authorized Specialty Diagnoses / Procedures Referred By Contact Fatuma almodovar To Contact Diagnoses Preoperative Exam Cintia Cobb SE Procedures ECG 12 Lead Keely Piper [address] [place] [phone] Referral ID Status Reason Start Date Expiration Date Visits V isits Requested Authorized [id number] Authorized 12/31/2021 12/31/2022 1 1 Reason for Visit Reason Comments Follow-up D5 Outpatient (Routine) - Closed Specialty Diagnoses / Procedures Referred By Contact Refer red To Contact Family Medicine [facility] DREW Piper M.D. [address] [place] [address] DREW Condon [phone] Referral ID Status Reason Start Date Expiration Date Visits Requ ested Visits Authorized [id number] Closed 08/13/2021 08/13/2022 1 1 Encounter Details Date Type Department Care Team Description 12/31/2021 Office Visit Department of Family Tigist Cobb reoperative Exam (Primary Dx); Medicine, Jose Daniel Piper M.D. 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; [facility], in [address] [place] [address] Diabetes Mellitus Type 2 With Diabetic Neuropathy (HCC); [facility] Gastric Bypass Status Post; [place] Jose Daniel Dean [place] Anemia Microcytic; [address] [place] [phone] Wound Lower Leg Open Initial Right; RDEW CONDON [phone] Flutter Atr ial (HCC); [phone] (Work) Pacemaker Cardiac Status Post; [phone] Benign Pr ostatic Hyperplasia Without Obstruction; Screening [facility] [place] Prostate Cancer Social History Tobacco Use Types [...] will be undergoing a spine surgery with [facility], Dr. Cesar Scherer at [facility] in [facility] on January 27. He has never had [...] been seeing the wound care nurse at [facility] and states that this has been [...] working with the wound care clinic through [facility]. There has been significant improvement in his wound. Hopefully it will be healed by the time of surgery. They do state that there were some vascular abnormalities, potentially varicose veins, on ultrasound for which he has been[facility] the [facility]. #7 Flutter Atrial (HCC) #8 Pacemaker Cardiac [...] Name Type Priority Associated Diagnoses Order [facility] Basic Metabolic Panel Lab Routine Preoperative Exam E xpected: 12/31/2021, Expires: 2022 Hemoglobin A1c Lab Routine Diabetes Mellitus Type 2 E xpected: 07/03/2022 With Diabetic Neuropathy (Ap proximate), (HCC) Expires: 2022 Hemoglobin Lab Routine Anemia Microcytic Expected: 07/03/2022 (Approximate), Expires: 2022 Scheduled Referrals Name Type Priority Associated Diagnoses Order [facility] Family Medicine Outpatient Referral Routine Expec [...] M.D. LAB BLOOD ADD-ON Performing Organization Address City/State/[facility] Code Phon e Number [address] [address] [place] [address] System in [address] Lipid Panel (12/31/2021 7:28 PM CDT) [...] Organization Address City/[facility]/ZIP Code Phon e Number [facility]- [address] [place] [address] [place] [address] [place] [address] System in [place] [address] Bl PSA (Prostate-Specific Antigen) Screen (12/31/2021 7:28 PM CDT) athologist Signature Prostate-Specif 0.92 <=4.5 ng/mL 01/01/2022 RDW ic Ag 1:39 PM CDT Comment: ----ADDITIONAL INFORMATION---- The testing method is an electrochemilum inescence assay manufactured by [employer] and performed on the Modular [...] e Number [facility]- [address] [place], [place] [address] [facility] [place] [address] System in [place] [address] (ABNORMAL) CBC without Differential [...] Organization Address City/State/ZIP Code Phon e Number [address] [address] [place] [address] System [address] ECG 12 Lead (12/31/2021 7:16 PM CDT) P athologist Signature Ventricular Rate 81 BPM MUSE ECG/Min OK Interval 172 ms MUSE QRSD Interval 172 ms MUSE QT Interval 400 ms MUSE QTC Interval 465 ms MUSE P Lejunior 37 degrees MUSE R Lejunior 269 degrees MUSE T Wave Lejunior 83 degrees MUSE Specimen Anatomical Collection Method [...] documented as of this encounter Care Teams Trust Operations Assistant Relationship Specialty Start Date End Date Cintia Cobb M.D. PCP - General 02/19/17 02/20/[address] [place] [phone] documented as of this encounter
--- OUTSIDE RECORDS SUMMARY | 2022-08-05 10:08 | XMS_ITS | Encounter Summary ---
:1960 Author Organization [facility] Address [address] [place] [address] Care Team Providers Name Role Phone Cintia Cobb M.D. Primary Care Provider [phone] Encounter Details Date Type Department Care Team Description 01/01/2022 Clinical Communication Department of [facility], Jose Daniel Piper M.D. [address] [address] [place], [place] [phone] (Work) [phone] Social History Tobacco Use Types Packs/Day Years [...] Date/Date of Appointment: 01/27/22 Location of Appointment/Surgery: [facility] Provider name or Department: Cesar Scherer MD, [facility] Address: [address] [place] [address] documented in this encounter Plan of Treatment Not on filedocumented as of this encounter Visit Diagnoses Not on filedocumented in this encounter Additional Health Concerns Assessment Noted Time PHQ-9 Depression Total Score: 18 02/14/2013 9:53 AM CD T documented as of this encounter Care Teams Deck Molder Relationship Specialty Start Date End Date Cinita Cobb M.D. PCP - General 02/19/17 02/20/[id number] [place] [phone] documented as of this encounter
--- OUTSIDE RECORDS SUMMARY | 2022-08-05 10:08 | XMS_ITS | Encounter Summary ---
:1960 Author Organization [facility] Address [address] [place] [address] Care Team Providers Name Role Phone Elsewhere, Pcp Primary Care Provider Unavailable Reason for Visit Reason Comments Fall Pt arrived via [facility] foll owing a fall at a farm site. Pt reported he landed on his knee. Encounter Details Date Type Department Care Team Description 06/21/2022 Emergency [facility] Billy Camacho [facility] [place] Mary Carmen Munguia (Primary Dx) Emergency Department [phone] [place] [address] [place], [place] [phone] (Wo rk) [address] [phone] Social History Tobacco Use Types Packs/Day Years [...] year old man who presented to the [facility] emergency department earlier today after a reported fall at a local worksite. Commercial Banker was consulted by nursing staff to assist [...] not completed with the patient today. INTERVENTIONS Commercial Banker provided a cab voucher to the patient as requested and instructed him to call [employer] this service. Patient reported that his truck remains at [facility] in [place] and once he can get there he plans to return home. PLAN Patient discharged from the emergency department at this time with no further identified needs. Alexandre ValeraC.S.W. 06/21/22 documented in this encounter ED Notes Billy Camacho P.A.-C. - 06/21/2022 10:14 AM CDT SUBJECTIVE CHIEF COMPLAINT / REASON FOR VISIT: Fall (Pt arrived via [facility] following a fall at a farm [...] Procedure: ESOPHAGOGASTRODUODENOSCOPY; Surgeon: Rene Carlson M.D.; Location: [facility] GI LAB ??? LAPAROSCOPIC ASSISTED - GASTRIC BYPASS N/A 11/21/2014 Laparoscopic assisted - Gastric bypass ??? OPEN REDUCTION INTERNAL FIXATION FEMUR Left 08/13/2019 Procedure: OPEN REDUCTION INTERNAL FIXATION LEFT FEMUR; Surgeon: John Norman M.D.; Location:[facility] OR ??? OTHER CONVERTED SHX (SEE COMMENT) [...] documented as of this encounter Care Teams Non Categorical Preschool Teacher Relationship Specialty Start Date End Date Elsewhere, Pcp PCP - General Internal Medicine 06/21/22 documented as of this encounter
--- OUTSIDE RECORDS SUMMARY | 2022-08-05 10:08 | XMS_ITS | Encounter Summary ---
:1960 Author Organization [facility] Address [address] [place] [address] Care Team Providers Name Role Phone Cintia Cobb M.D. Primary Care Provider Reason for Visit Physical Therapy (Routine) - Canceled Specialty Diagnoses / Procedures Referred By Contact Refer red To Contact Diagnoses Fracture Femur Lower Multiple Closed Initial Left (HCC) Nathen Burger M.D. [facility] Procedures PT Ongoing treatment [facility] [address] [address] Referral ID Status Reason Start Date Expiration Date Visits V isits Requested Authorized [id number] Canceled 10/22/2021 10/22/2022 40 40 Encounter Details Date Type Department Care Team Description 12/12/2021 Clinical Support Department of Gustavo Burger M.D. [address] [address] Fracture Femur Rehabilitation Lesli Dias, P.T. [address] [place] [phone] Lower Multiple Services in [place] Closed In itial [place], [place] ([facility]) [address] [place] [phone] Social History Tobacco Use Types Packs/Day Years Used Date Smoking Tobacco: Never Smokeless Tobacco: Never Alcohol Use Standard Drinks/Week Comments No 0 (1 standard drink = 0.6 oz pure alcoho l) Sex Assigned at Date Recorded Not on file documented as of this encounter Progress Notes Lesli Dias P.T. - 12/12/2021 10:45 AM CDT Physical Therapy Outpatient Treatment Note SUBJECTIVE Patient's Name: Laz Luna Referring Provider: Nathen Burger M.D. Visit Diagnosis: 1. Fracture Femur Lower Multiple Closed Initial Left (HCC) Payor: [employer] [facility] CARE / Plan: [place] BLUE PLUS HMO / Product Type: Medicaid HMO / No data recorded Epic Visit Count: 16 Patient comments: Patient reports his back pain is worsening. Contact monitoring: PPE used during therapy: Therapist was wearing the following PPE throughout entire session: surgicalmask Patient was wearing a mask during therapy session: yes Additional Staff Present During Session: no OBJECTIVE Pain: LBP and Left knee pain, pain not rated on pain scale today. TREATMENT Treatment today consisted of: Performed??the Apparcando-Fit Total body ergometer times 15??minutes at a level??3??resistance. ??Leg press??60#??3??x 15??reps.?Forward ups 2 x 10 reps each.?Standing partial squats 2 x 10 reps each. ??Ambulated in the parallel bars without UE support, mild antalgic gait. ??SLS attempted but unable due to back pain.?? Home Exercise Program/Education: Supine Knee Extension Stretch [...] Assessment Clinical Impression: Patient tolerated treatment session well despite his back pain. Patient is gradually progressing with his strengthening. Patient does have a more antalgic gait today likely relatedto his back pain. Patient will continue to benefit from skilled physical therapy to regain functional range of motion and strength and for safe independent ambulation. Functional Goals and Timeframes: PT Goal [...] Plan for next session: Range of motion, strengthening and balance training. Time Spent with Patient Therapeutic Interventions Gait Training (min): 5 min Therapeutic Exercise (min): 33 min Time Tracking Total Timed Units (min): 38 min Total Treatment Time (min): 38 min documented in this encounter Plan of Treatment Not on filedocumented as of this encounter Visit Diagnoses Diagnosis Fracture Femur Lower Multiple Closed Ini tial Left (HCC) documented in this encounter Additional Health Concerns Assessment Noted Time PHQ-9 Depression Total Score: 18 02/14/2013 9:53 AM CD T documented as of this encounter Care Teams Table Maker Relationship Specialty Start Date End Date Cintia Cobb M.D. PCP - General 02/19/17 02/20/[id number] [phone] documented as of this encounter
--- OUTSIDE RECORDS SUMMARY | 2022-08-05 10:09 | XMS_ITS | Encounter Summary ---
:1960 Author Organization [facility] Address [address] [place] [address] Care Team Providers Name Role Phone Cintia Cobb M.D. Primary Care Provider [phone] Reason for Visit Physical Therapy (Routine) - Canceled Specialty Diagnoses / Procedures Referred By Contact Refer red To Contact Diagnoses Fracture Femur Lower Multiple Closed Initial Left (HCC) Nathen Burger M.D. [facility] Procedures PT Ongoing treatment [facility] [address] [address] Referral ID Status Reason Start Date Expiration Date Visits V isits Requested Authorized [id number] Canceled 10/22/2021 10/22/2022 40 40 Encounter Details Date Type Department Care Team Description 10/30/2021 Clinical Support Department of Gustavo Burger M.D. [address] [address] Fracture Femur Rehabilitation Lesli Dias, P.T. [address] [place] [phone] Lower Multiple Services in [place] Closed In itial [place], [place] ([facility]) [address] [place] [phone] Social History Tobacco Use Types Packs/Day [...] Lower Multiple Closed Initial Left (HCC) Payor: [employer] [facility] / Plan: [facility] BLUE PLUS HMO / Product Type: Medicaid [...] TREATMENT Treatment today consisted of: Perform the FlashSoft-Fit Total body ergometer times 10 minutes at [...] min Total Treatment Time (min): 35 min ER B[place] documented in this encounter Plan of Treatment Not on filedocumented as of this encounter Visit Diagnoses Diagnosis Fracture Femur Lower Multiple Closed Ini tial Left (HCC) documented in this encounter Additional Health Concerns Assessment Noted Time PHQ-9 Depression Total Score: 18 02/14/2013 9:53 AM CD T documented as of this encounter Care Teams Material Man Relationship Specialty Start Date End Date Cintia Cobb M.D. PCP - General 02/19/17 02/20/[address] [phone] documented as of this encounter
--- OUTSIDE RECORDS SUMMARY | 2022-08-05 10:09 | XMS_ITS | Encounter Summary ---
:1960 Author Organization [facility] Address [address] [place] [address] Care Team Providers Name Role Phone Cintia Cobb M.D. Primary Care Provider [phone] Reason for Visit Physical Therapy (Routine) - Canceled Specialty Diagnoses / Procedures Referred By Contact Refer red To Contact Diagnoses Fracture Femur Lower Multiple Closed Initial [facility] ([facility]) Nathen Burger M.D. [facility] Procedures PT Ongoing treatment [facility] [address] [address] Referral ID Status Reason Start Date Expiration Date Visits V isits Requested Authorized [id number] Canceled 10/22/2021 10/22/2022 40 40 Encounter Details Date Type Department Care Team Description 11/13/2021 Clinical Support Department of Gustavo Burger M.D. [address] [address] Fracture Femur Rehabilitation Emelia Acosta, P.TPili Lower Multiple Services in [facility] [place], [place] ([facility]) [address] [place] [phone] Social History Tobacco Use Types Packs/Day Years [...] Lower Multiple Closed Initial Left (HCC) Payor: [employer] [place] CARE / Plan: [facility] Melty HMO / Product Type: Medicaid HMO / [...] min Total Treatment Time (min): 45 min STER RECOVERY COORDINATOR documented in this encounter Plan of Treatment Not on filedocumented as of this encounter Visit Diagnoses Diagnosis Fracture Femur Lower Multiple Closed Ini tial Left (HCC) documented in this encounter Additional Health Concerns Assessment Noted Time PHQ-9 Depression Total Score: 18 02/14/2013 9:53 AM CD T documented as of this encounter Care Teams Horseback Riding Instructor Relationship Specialty Start Date End Date Cintia Cobb M.D. PCP - General 02/19/17 02/20/[address] [phone] documented as of this encounter
--- OUTSIDE RECORDS SUMMARY | 2022-08-05 10:09 | XMS_ITS | Encounter Summary ---
:1960 Author Organization [facility] Address [address] [place] [address] Care Team Providers Name Role Phone Cintia Cobb M.D. Primary Care Provider [phone] Reason for Visit Reason Onset Date Comments Testing For Upper Respiratory Virus Symptoms 10/03/2021 Encounter Details Date Type Department Care Team Description 10/03/2021 External Outreach Department of [facility] Nicky Franco Contact With And Medicine, [place] Mary Carmen Padilla (Suspected) Exposure Clinic, in [address] To COVID-19 (Primary [place], [place] Dx) [address] [place] [address] [place], [place] [phone] (Work) [phone] Social History Tobacco Use Types Packs/Day Years [...] Influenza, RSV, and/or Group A Strep testing. IVABLE MANAGER documented in this encounter Plan of Treatment Not on filedocumented as of this encounter Visit Diagnoses Diagnosis Contact With And (Suspected) Exposure To COVID-19 - Primary documented in this encounter Additional Health Concerns Infection Onset Date Last Indicated Resolved Time COVID19 Pending 10/03/2021 10/03/2021 10/23/2021 6:10 AM RECEIVABLE MANAGER Assessment Noted Time PHQ-9 Depression Total Score: 18 02/14/2013 9:53 AM CD T documented as of this encounter Care Teams Gallery Intern Relationship Specialty Start Date End Date Cintia Cobb M.D. PCP - General 02/19/17 02/20/[address] [place] [phone] documented as of this encounter
--- OUTSIDE RECORDS SUMMARY | 2022-08-05 10:09 | XMS_ITS | Encounter Summary ---
:1960 Author Organization [facility] Address [address] [place] [address] Care Team Providers Name Role Phone Cintia Cobb M.D. Primary Care Provider [phone] Reason for Visit Reason Comments Quality D5 Encounter Details Date Type Department Care Team Description 12/06/2021 Clinical Communication [facility] D5 Medicine, Jose Daniel Piper M.D. [address] [address] [place], [place] [phone] (Work) [phone] Social History Tobacco Use Types Packs/Day Years [...] documented as of this encounter Care Teams Chief Procurement Officer Relationship Specialty Start Date End Date Cintia Cobb M.D. PCP - General 02/19/17 02/20/[address] [place] [phone] documented as of this encounter
--- OUTSIDE RECORDS SUMMARY | 2022-08-05 10:09 | XMS_ITS | Encounter Summary ---
:1960 Author Organization [facility] Address [address] [place] [address] Care Team Providers Name Role Phone Cintia Cobb M.D. Primary Care Provider [phone] Reason for Visit Physical Therapy (Routine) - Canceled Specialty Diagnoses / Procedures Referred By Contact Refer red To Contact Diagnoses Fracture Femur Lower Multiple Closed Initial Left (HCC) Nathen Burger M.D. [facility] Procedures PT Ongoing treatment [facility] [address] [address] Referral ID Status Reason Start Date Expiration Date Visits V isits Requested Authorized [id number] Canceled 10/22/2021 10/22/2022 40 40 Encounter Details Date Type Department Care Team Description 11/21/2021 Clinical Support Department of Gustavo Burger M.D. [address] [address] Fracture Femur Rehabilitation Lesli Dias, P.T. [address] [place] [phone] Lower Multiple Services in [place] Closed In itial [place], [place] ([facility]) [address] [place] [phone] Social History Tobacco Use Types Packs/Day [...] Lower Multiple Closed Initial Left (HCC) Payor: [employer] [facility] CARE / Plan: [facility] BLUE PLUS HMO / Product Type: [...] documented as of this encounter Care Teams Mechanical Engineering Director Relationship Specialty Start Date End Date Cintia Cobb M.D. PCP - General 02/19/17 02/20/[address] [place] [phone] documented as of this encounter
--- OUTSIDE RECORDS SUMMARY | 2022-08-05 10:09 | XMS_ITS | Encounter Summary ---
:1960 Author Organization [facility] Address [address] [place] [address] Care Team Providers Name Role Phone Cintia Cobb M.D. Primary Care Provider [phone] Reason for Referral Outpatient (Routine) - Closed Specialty Diagnoses / Procedures Referred By Contact Refer red To Contact Family Medicine Cintia Cobb DREW Piper M.D. [address] [place] [phone] Referral ID Status Reason Start Date Expiration Date Visits Requ ested Visits Authorized [id number] Closed 08/13/2021 08/13/2022 1 1 ORIZATION REPRESENTATIVE Reason for Visit Reason Comments Weight Gain due to gabapentin. Stopped R x Appointment Request (Routine) - Incomplete Specialty Diagnoses / Procedures Referred By Contact Fatuma almodovar To Contact Referral ID Status Reason Start Date Expiration Date Visits V isits Requested Authorized [id number] Incomplete 05/21/2021 05/21/2022 1 1 Encounter Details Date Type Department Care Team Description 08/13/2021 Office Visit Department of [facility] Terri Cobb Mellitus Type 2 With Diabetic Neuropathy (HCC) (Primary Dx); Jose Daniel Cablelo M.D. Diabetes Mellitus Type 2 Peripheral Neur opathy (HCC); [facility], in [address] [place] [address] Hyperten mikey Essential Primary; [facility] Flutter Atrial (HCC); [place] DREW Condon Anemia Microcytic; [address] [phone] Gastric Bypass Status Post; DREW CONDON [phone] Benign Pros tatic Hyperplasia Without Obstruction; [phone] (Work) Screening Examination Prostate Cancer; [phone] Pain Low Back Unspecified Social History Tobacco [...] Comments Blood Pressure 127/82 08/13/2021 7:21 PM AUTHORIZATION REPRESENTATIVE Pulse 78 08/13/2021 7:21 PM AUTHORIZATION REPRESENTATIVE Temperature - - Respiratory Rate 20 08/13/2021 6:30 PM AUTHORIZATION REPRESENTATIVE Oxygen Saturation 98% 08/13/2021 6:30 PM AUTHORIZATION REPRESENTATIVE Inhaled Oxygen Concentration - - Weight - [...] in no acute distress. Cintia Copeland MD ORIZATION REPRESENTATIVE documented in this encounter Plan of Treatment Scheduled Orders Name Type Priority Associated Diagnoses Order [place] Creatinine with Lab Routine Hypertension Essential Ex [...] is an electrochemilum inescence assay manufactured by [employer] and performed on the Modular [...] Code Phon e Number [facility]- [address] [place] [phone] [place] [address] System [address] Lipid Panel (12/31/2021 7:28 PM CDT) [...] M.D. LAB BLOOD ADD-ON Performing Organization Address [facility] Phon e Number [address] [address] [place] [address] System in [place] [address] [address] Hemoglobin A1c (12/31/2021 7:28 PM CDT) P athologist Signature Hemoglobin A1c, 5.4 4.2 - 5.6 12/31/2021 CNFL B % 7:48 PM CDT Specimen Anatomical Collection Method Collection Time Receive d Time (Source) Location / / Volume Laterality Blood (Blood, 12/31/2021 7:28 PM 01/01/20 22 7:32 Venous) CDT PM CDT Cintia Copeland M.D. LAB BLOOD ADD-ON Performing Organization Address [facility] Phon e Number [address] [address] [place] [address] System [address] (ABNORMAL) CBC without Differential (12/31/2021 7:22 [...] Code Phon e Number [facility]- [address] [place] [address] [place] [address] System in [address] documented in this encounter Visit Diagnoses [...] documented as of this encounter Care Teams Consumer Insight Manager Relationship Specialty Start Date End Date Cintia Cobb M.D. PCP - General 02/19/17 02/20/[address] [place] [phone] documented as of this encounter
--- OUTSIDE RECORDS SUMMARY | 2022-08-05 10:09 | XMS_ITS | Encounter Summary ---
:1960 Author Organization [facility] Address [address] [place] [address] Care Team Providers Name Role Phone Cintia Cobb M.D. Primary Care Provider [phone] Reason for Visit Reason Comments paperwork Encounter Details Date Type Department Care Team Description 09/24/2021 Clinical Communication Department of [facility] Yady donahue, paperwork Medicine, Jose Daniel Piper M.D. [address] [address] [place], [place] [phone] (Work) [phone] Social History Tobacco Use Types Packs/Day Years [...] cancellation of that surgical procedure on 10/07/21 O REPAIR TEACHER Telephone Encounter - Caro Harper - 09/24/2021 3:30 PM CST Patient asking to have someone call him regarding paperwork for the Pre-op Appt. Please call him at [phone]. Thanks O REPAIR TEACHER documented in this encounter Plan of Treatment Not on filedocumented as of this encounter Visit Diagnoses Not on filedocumented in this encounter Additional Health Concerns Infection Onset Date Last Indicated Resolved Time COVID19 Pending 09/30/2021 09/30/2021 09/30/2021 11:06 AM RADIO REPAIR TEACHER COVID19 Pending 10/03/2021 10/03/2021 10/23/2021 6:10 AM RADIO REPAIR TEACHER Assessment Noted Time PHQ-9 Depression Total Score: 18 02/14/2013 9:53 AM CD T documented as of this encounter Care Teams Patch Washer Relationship Specialty Start Date End Date Cintia Cobb M.D. PCP - General 02/19/17 02/20/[address] [place] [phone] documented as of this encounter
--- OUTSIDE RECORDS SUMMARY | 2022-08-05 10:09 | XMS_ITS | Encounter Summary ---
:1960 Author Organization [facility] Address [address] [place] [address] Care Team Providers Name Role Phone Cintia Cobb M.D. Primary Care Provider [phone] Reason for Visit Reason Comments ED visit Encounter Details Date Type Department Care Team Description 09/30/2021 Clinical Communication Department of [facility] Duncan donahue, ED visit Medicine, Jose Daniel Piper M.D. [facility], [address] [address] [place], [place] [phone] (Work) [phone] Social History Tobacco Use Types Packs/Day Years [...] 10/01/21 due to currently being in the [place] ED with a broken leg. Patient wanted Dr Song to be aware. Name of Medication (if relevant): na Please send all scheduling replies to scheduling pool. ICAL EXERCISE SPECIALIST documented in this encounter Plan of Treatment Not on filedocumented as of this encounter Visit Diagnoses Not on filedocumented in this encounter Additional Health Concerns Infection Onset Date Last Indicated Resolved Time COVID19 Pending 09/30/2021 09/30/2021 09/30/2021 11:06 AM CLINICAL EXERCISE SPECIALIST COVID19 Pending 10/03/2021 10/03/2021 10/23/2021 6:10 AM CLINICAL EXERCISE SPECIALIST Assessment Noted Time PHQ-9 Depression Total Score: 18 02/14/2013 9:53 AM CD T documented as of this encounter Care Teams Field Engineer Relationship Specialty Start Date End Date Cintia Cobb M.D. PCP - General 02/19/17 02/20/[address] [place] [phone] documented as of this encounter
--- OUTSIDE RECORDS SUMMARY | 2022-08-05 10:09 | XMS_ITS | Encounter Summary ---
:1960 Author Organization [facility] [place] [facility] Address [address] [place] [address] Care Team Providers Name Role Phone Cintia Cobb M.D. Primary Care Provider [phone] Encounter Details Date Type Department Care Team Description 07/30/2021 Clinical Communication Department of [facility] Medicine, Jose Daniel Piper M.D. [address] [address] [place], [place] [phone] (Work) [phone] Social History Tobacco Use Types Packs/Day Years Used Date Smoking Tobacco: Never Smokeless Tobacco: Never Alcohol Use Standard Drinks/Week Comments No 0 (1 standard drink = 0.6 oz pure alcoho l) Sex Assigned at Date Recorded Not on file documented as of this encounter Miscellaneous Notes Telephone Encounter - Cintia Cobb M.D. - 08/05/2021 11:38 AM HYDROLOGIC ENGINEER Noted. Will discuss at upcoming appointment. OLOGIC ENGINEER Telephone Encounter - Iliana Campos L.P.N. - 07/30/2021 10:21 AM CST Notes below from liquefaction supervisor as an FY from 07/28/21I: FYI I wanted PCP and Nurse Team to know. Patient is taking prescriptions inappropriately and could result in terrible side effects. All follow up related to this message will need to be done by the primary provider's nursing team. ??Please have your local nursing staff follow up with patient directly. ??Patient blocked [facility] [place] [facility] from calling so unable to reach patient. Routing comment Patient calling to see why he shouldn't mix [place] with Tylenol and alcohol. Nurse continued to explain but patient refused recommendations. Stated he's going to continue to do what he's been doing andtake all 6 pain pills with half a bottle of Tylenol and wash it down with Wild [place], all at the same time. ?? This could be life threatening and result in an overdose. Patient refused liquefaction supervisor recommendation. Note sent to PCP team. Unable to contact patient due to him blocking [facility] [place] [facility]. OLOGIC ENGINEER documented in this encounter Plan of Treatment Not on filedocumented as of this encounter Visit Diagnoses Not on filedocumented in this encounter Additional Health Concerns Assessment Noted Time PHQ-9 Depression Total Score: 18 02/14/2013 9:53 AM CD T documented as of this encounter Care Teams Photography Manager Relationship Specialty Start Date End Date Cintia Cobb M.D. PCP - General 02/19/17 02/20/[address] [address] documented as of this encounter
--- OUTSIDE RECORDS SUMMARY | 2022-08-05 10:09 | XMS_ITS | Encounter Summary ---
:1960 Author Organization [facility] Address [address] [place] [address] Care Team Providers Name Role Phone Cintia Cobb M.D. Primary Care Provider [phone] Reason for Visit Physical Therapy (Routine) - Canceled Specialty Diagnoses / Procedures Referred By Contact Refer red To Contact Diagnoses Fracture Femur Lower Multiple Closed Initial Left (HCC) Nathen Burger M.D. [facility] Procedures PT Ongoing treatment [facility] [address] [address] Referral ID Status Reason Start Date Expiration Date Visits V isits Requested Authorized [id number] Canceled 10/22/2021 10/22/2022 40 40 Encounter Details Date Type Department Care Team Description 12/09/2021 Clinical Support Department of Gustavo Burger M.D. [address] [place] [address] Fracture Femur Rehabilitation Lesli Dias, P.T. [address] [place] [phone] Lower Multiple Services in [place] Closed In itial [place], [place] ([facility]) [address] [place] [phone] Social History Tobacco Use Types Packs/Day [...] Lower Multiple Closed Initial Left (HCC) Payor: [employer] [place] CARE / Plan: [facility] BLUE PLUS HMO / Product Type: [...] documented as of this encounter Care Teams Note Teller Relationship Specialty Start Date End Date Cintia Cobb M.D. PCP - General 02/19/17 02/20/[address] [place] [phone] documented as of this encounter
--- OUTSIDE RECORDS SUMMARY | 2022-08-05 10:09 | XMS_ITS | Encounter Summary ---
:1960 Author Organization [facility] Address [address] [place] [address] Care Team Providers Name Role Phone Cintia Cobb M.D. Primary Care Provider [phone] Reason for Visit Reason Comments Medical Information Encounter Details Date Type Department Care Team Description 07/28/2021 Nurse Triage Department of Family Hanny Cosme, Medical Information Medicine, [facility], in [place] [phone] (Work[address] [phone] Social History Tobacco Use Types Packs/Day Years Used Date Smoking Tobacco: Never Smokeless Tobacco: Never Alcohol Use Standard Drinks/Week Comments No 0 (1 standard drink = 0.6 oz pure alcoho l) Sex Assigned at Date Recorded Not on file documented as of this encounter Miscellaneous Notes Telephone Encounter - Hanny Cosme RKevin. - 07/28/2021 10:57 AM SHIPMASTER Patient calling to see why he shouldn't mix [place] with Tylenol and alcohol. Nurse continued to explain but patient refused recommendations. Stated he's going to continue to do what he's been doing andtake all 6 pain pills with half a bottle of Tylenol and wash it down with Wild [place], all at the same time. This could be life threatening and result in an overdose. Patient refused oxyacetylene cutter recommendation. Note sent to PCP team. Unable to contact patient due to him blocking [facility]. MASTER documented in this encounter Plan of Treatment Not on filedocumented as of this encounter Visit Diagnoses Not on filedocumented in this encounter Additional Health Concerns Assessment Noted Time PHQ-9 Depression Total Score: 18 02/14/2013 9:53 AM CD T documented as of this encounter Care Teams Immunopathologist Relationship Specialty Start Date End Date Cintia Cobb M.D. PCP - General 02/19/17 02/20/[address] [place] [phone] documented as of this encounter
--- OUTSIDE RECORDS SUMMARY | 2022-08-05 10:09 | XMS_ITS | Encounter Summary ---
:1960 Author Organization [facility] Address [address] [place] [address] Care Team Providers Name Role Phone Cintia Cobb M.D. Primary Care Provider [phone] Reason for Visit Reason Comments Supplement Question Encounter Details Date Type Department Care Team Description 11/28/2021 Clinical Department of [place] Supplement Que stion Communication Family Medicine, Cintia Copeland M.D. Clinic, in [address] [address] [place], [place] [phone] (Work) [phone] Social History Tobacco Use Types Packs/Day Years [...] to stink even after cleaning it Ed Jim Luna RESPONSE: I would recommend scheduling an appointment so that we can look at the wound and prescribe appropriate treatment. In regards to your supplement question, I do not know anything specifically about Rockwall XL. You can certainly try it but if no improvement in whatever symptoms you are hoping it will help, I would stoptaking it. Cintia Song MD Telephone Encounter - Xochitl Hackett L.P.N. - 11/28/2021 1:57 PM CDT Ed was here for some PT this afternoon and wanted to ask your opinion, if you knew anything about a supplement called Rockwall XL. It is to be used for [...] documented as of this encounter Care Teams Door Builder Relationship Specialty Start Date End Date Cintia Cobb M.D. PCP - General 02/19/17 02/20/[address] [address] documented as of this encounter
--- OUTSIDE RECORDS SUMMARY | 2022-08-05 10:09 | XMS_ITS | Encounter Summary ---
:1960 Author Organization [facility] Address [address] [place] [address] Care Team Providers Name Role Phone Cintia [...] documented as of this encounter Care Teams Multimedia Engineer Relationship Specialty Start Date End Date Cintia Cobb M.D. PCP - General 02/19/17 02/20/[address] [phone] documented as of this encounter
--- OUTSIDE RECORDS SUMMARY | 2022-08-05 10:09 | XMS_ITS | Encounter Summary ---
:1960 Author Organization [facility] Address [address] [place] [address] Care Team Providers Name Role Phone Cintia Cobb M.D. Primary Care Provider [phone] Reason for Visit Physical Therapy (Routine) - Canceled Specialty Diagnoses / Procedures Referred By Contact Refer red To Contact Diagnoses Fracture Femur Lower Multiple Closed Initial Left (HCC) Nathen Burger M.D. [facility] Procedures PT Ongoing treatment [facility] [address] [address] Referral ID Status Reason Start Date Expiration Date Visits V isits Requested Authorized [id number] Canceled 10/22/2021 10/22/2022 40 40 Encounter Details Date Type Department Care Team Description 11/19/2021 Clinical Support Department of Gustavo Burger M.D. [address] [address] Fracture Femur Rehabilitation Lesli Dias, P.T. [address] [place] [phone] Lower Multiple Services in [place] Closed In itial [place], [place] ([facility]) [address] [place] [phone] Social History Tobacco Use Types Packs/Day [...] Lower Multiple Closed Initial Left (HCC) Payor: [employer] [facility] CARE / Plan: [facility] BLUE PLUS HMO / Product [...] as of this encounter Care Teams Deputy Head Relationship Specialty Start Date End Date Cintia Cobb M.D. PCP - General 02/19/17 02/20/[address] [phone] documented as of this encounter
--- OUTSIDE RECORDS SUMMARY | 2022-08-05 10:09 | XMS_ITS | Encounter Summary ---
:1960 Author Organization [facility] Address [address] [place] [address] Care Team Providers Name Role Phone Cintia Cobb M.D. Primary Care Provider Encounter Details Date Type Department Care Team Description 08/13/2021 Orders Only [facility] PCP [facility] Priyanka Cobb Mellitus Type OLEG Piper M.D. 2 With Diabetic [address] [address] Neuropathy ( HCC) [place] [phone] (Wo rk) Social History Tobacco [...] as of this encounter Care Teams Clinical Documentation Consultant Relationship Specialty Start Date End Date Cintia Cobb M.D. PCP - General 02/19/17 02/20/22 [address] [facility] [address] [place] [phone] documented as of this encounter
--- OUTSIDE RECORDS SUMMARY | 2022-08-05 10:09 | XMS_ITS | Encounter Summary ---
:1960 Author Organization [facility] Address [address] [place] [address] Care Team Providers Name Role Phone Cintia Cobb M.D. Primary Care Provider [phone] Reason for Visit Physical Therapy (Routine) - Canceled Specialty Diagnoses / Procedures Referred By Contact Refer red To Contact Diagnoses Fracture Femur Lower Multiple Closed Initial Left (HCC) Nathen Burger M.D. [facility] Procedures PT Ongoing treatment [facility] [address] [address] Referral ID Status Reason Start Date Expiration Date Visits V isits Requested Authorized [id number] Canceled 10/22/2021 10/22/2022 40 40 Encounter Details Date Type Department Care Team Description 11/04/2021 Clinical Support Department of Gustavo Burger M.D. [address] [address] Fracture Femur Rehabilitation Lesli Dias, P.T. [address] [place] [phone] Lower Multiple Services in [place] Closed In itial [place], [place] ([facility]) [address] [place] [phone] Social History Tobacco Use Types Packs/Day [...] Lower Multiple Closed Initial Left (HCC) Payor: [employer] [facility] CARE / Plan: [facility] BLUE PLUS HMO / Product Type: [...] min Total Treatment Time (min): 30 min MANAGER documented in this encounter Plan of Treatment Not on filedocumented as of this encounter Visit Diagnoses Diagnosis Fracture Femur Lower Multiple Closed Ini tial Left (HCC) documented in this encounter Additional Health Concerns Assessment Noted Time PHQ-9 Depression Total Score: 18 02/14/2013 9:53 AM CD T documented as of this encounter Care Teams Ecotherapist Relationship Specialty Start Date End Date Cintia Cobb M.D. PCP - General 02/19/17 02/20/[address] [place] [phone] documented as of this encounter
--- OUTSIDE RECORDS SUMMARY | 2022-08-05 10:09 | XMS_ITS | Encounter Summary ---
:1960 Author Organization [facility] Address [address] [place] [address] Care Team Providers Name Role Phone Cintia Cobb M.D. Primary Care Provider [phone] Encounter Details Date Type Department Care Team Description 09/09/2021 Orders Only Department of [facility] Angélica Cobb Medicine, Jose Daniel Piper M.D. Clinic, [address] [address] [place], [place] [phone] (W ork) [phone] [phone] Social History Tobacco Use Types Packs/Day Years [...] documented as of this encounter Care Teams Ladle Repairer Relationship Specialty Start Date End Date Cintia Cobb M.D. PCP - General 02/19/17 02/20/[address] [place] [phone] documented as of this encounter
--- OUTSIDE RECORDS SUMMARY | 2022-08-05 10:09 | XMS_ITS | Encounter Summary ---
:1960 Author Organization [facility] Address [address] [place] [address] Care Team Providers Name Role Phone Cintia Cobb M.D. Primary Care Provider [phone] Reason for Visit Physical Therapy (Routine) - Canceled Specialty Diagnoses / Procedures Referred By Contact Refer red To Contact Diagnoses Fracture Femur Lower Multiple Closed Initial Left (HCC) Nathen Burger M.D. [facility] Procedures PT Ongoing treatment [facility] [address] [address] Referral ID Status Reason Start Date Expiration Date Visits V isits Requested Authorized [id number] Canceled 10/22/2021 10/22/2022 40 40 Encounter Details Date Type Department Care Team Description 11/25/2021 Clinical Support Department of Gustavo Burger M.D. [address] [address] Fracture Femur Rehabilitation Lesli Dias, P.T. [address] [place] [phone] Lower Multiple Services in [place] Closed In itial [place], [place] ([facility]) [address] [place] [phone] Social History Tobacco Use Types Packs/Day [...] Lower Multiple Closed Initial Left (HCC) Payor: [employer] [place] CARE / Plan: [employer] BLUE PLUS HMO [...] TREATMENT Treatment today consisted of: Performed the Milk [employer] Deal-GL 2ours Total body ergometer times 16??minutes at a [...] documented as of this encounter Care Teams Jig Filler Relationship Specialty Start Date End Date Cintia Cobb M.D. PCP - General 02/19/17 02/20/[address] [phone] documented as of this encounter
--- OUTSIDE RECORDS SUMMARY | 2022-08-05 10:09 | XMS_ITS | Encounter Summary ---
:1960 Author Organization [facility] Address [address] [place] [address] Care Team Providers Name Role Phone Cintia Cobb M.D. Primary Care Provider Reason for Referral Outpatient (Routine) - Authorized Specialty Diagnoses / Procedures Referred By Contact Refer red To Contact Diagnoses Wound Lower Leg Open Initial Right Diabetes Mellitus Type 2 Peripheral Neuropathy (HCC) Cintia Cobb Referring S, M.D. Provider [address] [place] [phone] Referral ID Status Reason Start Expiration Visits Visits Date Date Requested Authorized [id number] Authorized Patient 12/05/2021 12/05/2022 1 1 Preference Reason for Visit Reason Comments Wound referral Encounter Details Date Type Department Care Team Description 12/03/2021 Clinical Communication [facility] [place] [facility], [facility] Clinic, in [address] [address] [place], [place] [phone] (Work) [phone] Social History Tobacco Use Types Packs/Day Years [...] willing to have a referral placed to [facility] but is on sure if they will [...] within their system for pt would be [facility] location: Located in: [facility] Address: [address] [place] [address] Telephone Encounter - Cintia Cobb M.D. - 12/03/2021 8:30 PM CDT Patient has a wound and we need to refer him to a vascular Medicine/qa specialist. Can we please call the [facility] to determine the closest clinic that offers [...] documented as of this encounter Care Teams Deep Fryer Assembler Relationship Specialty Start Date End Date Cintia Cobb M.D. PCP - General 02/19/17 02/20/[address] [place] [phone] documented as of this encounter
--- OUTSIDE RECORDS SUMMARY | 2022-08-05 10:09 | XMS_ITS | Encounter Summary ---
:1960 Author Organization [facility] Address [address] [place] [address] Care Team Providers Name Role Phone Cintia Cobb M.D. Primary Care Provider [phone] Reason for Visit Physical Therapy (Routine) - Canceled Specialty Diagnoses / Procedures Referred By Contact Refer red To Contact Diagnoses Fracture Femur Lower Multiple Closed Initial [facility] ([facility]) Nathen Burger M.D. [facility] Procedures PT Ongoing treatment [facility] [address] [address] Referral ID Status Reason Start Date Expiration Date Visits V isits Requested Authorized [id number] Canceled 10/22/2021 10/22/2022 40 40 Encounter Details Date Type Department Care Team Description 12/04/2021 Clinical Support Department of Gustavo Burger M.D. [address] [address] Fracture Femur Rehabilitation Emelia Acosta, P.TPili Lower Multiple Services in [facility] [place], [place] ([facility]) [address] [place] [phone] Social History Tobacco Use Types Packs/Day Years [...] Lower Multiple Closed Initial Left (HCC) Payor: [employer] [place] CARE / Plan: [employer] BLUE PLUS [...] and has additional questions pertaining to discussed [place] that was not provided to him. Contact [...] documented as of this encounter Care Teams Mixing Operator Relationship Specialty Start Date End Date Cintia Cobb M.D. PCP - General 02/19/17 02/20/[address] [phone] documented as of this encounter
--- OUTSIDE RECORDS SUMMARY | 2022-08-05 10:09 | XMS_ITS | Encounter Summary ---
:1960 Author Organization [facility] Address [address] [place] [address] Care Team Providers Name Role Phone Cintia Cobb M.D. Primary Care Provider [phone] Reason for Visit Reason Comments Med Refill Encounter Details Date Type Department Care Team Description 11/18/2021 Refill Department of [facility] Angélica Cobb Med Refill Medicine, [facility], in [address] [address] [place], [place] [address] [phone] Social History Tobacco Use Types Packs/Day Years [...] documented as of this encounter Care Teams Service Station Console Operator Relationship Specialty Start Date End Date Cintia Cobb M.D. PCP - General 02/19/17 02/20/[address] [place] [phone] documented as of this encounter
--- OUTSIDE RECORDS SUMMARY | 2022-08-05 10:09 | XMS_ITS | Encounter Summary ---
:1960 Author Organization [facility] Address [address] [place] [address] Care Team Providers Name Role Phone Cintia Cobb M.D. Primary Care Provider [phone] Reason for Visit Physical Therapy (Routine) - Canceled Specialty Diagnoses / Procedures Referred By Contact Refer red To Contact Diagnoses Fracture Femur Lower Multiple Closed Initial Left (HCC) Nathen Burger M.D. [facility] Procedures PT Ongoing treatment [facility] [address] [address] Referral ID Status Reason Start Date Expiration Date Visits V isits Requested Authorized [id number] Canceled 10/22/2021 10/22/2022 40 40 Encounter Details Date Type Department Care Team Description 12/05/2021 Clinical Support Department of Gustavo Burger M.D. [address] [address] Fracture Femur Rehabilitation Lesli Dias, P.T. [address] [place] [phone] Lower Multiple Services in [place] Closed In itial [place], [place] ([facility]) [address] [place] [phone] Social History Tobacco Use Types Packs/Day [...] Lower Multiple Closed Initial Left (HCC) Payor: [employer] [facility] CARE / Plan: [facility] BLUE PLUS HMO / Product [...] pain TREATMENT Treatment today consisted of: Performed??the DrDoctor-Fit Total body ergometer times 10??minutes at a [...] documented as of this encounter Care Teams Transport Analyst Relationship Specialty Start Date End Date Cintia Cobb M.D. PCP - General 02/19/17 02/20/[address] [phone] documented as of this encounter
--- OUTSIDE RECORDS SUMMARY | 2022-08-05 10:09 | XMS_ITS | Encounter Summary ---
:1960 Author Organization [facility] Address [address] [place] [address] Care Team Providers Name Role Phone Cintia Cobb M.D. Primary Care Provider [phone] Reason for Visit Reason Comments Med Refill Encounter Details Date Type Department Care Team Description 09/19/2021 Refill Department of [facility] Angélica Cobb Med Refill Medicine, [facility] M[facility] Clinic, in [address] [address] [place], [place] [address] [phone] Social History Tobacco Use Types Packs/Day Years [...] as of this encounter Care Teams Dental Therapist Relationship Specialty Start Date End Date Cintia Cobb M.D. PCP - General 02/19/17 02/20/[address] [place] [phone] documented as of this encounter
--- OUTSIDE RECORDS SUMMARY | 2022-08-05 10:09 | XMS_ITS | Encounter Summary ---
:1960 Author Organization [facility] Address [address] [place] [address] Care Team Providers Name Role Phone Cintia Cobb M.D. Primary Care Provider Reason for Visit Physical Therapy (Routine) - Canceled Specialty Diagnoses / Procedures Referred By Contact Refer red To Contact Diagnoses Fracture Femur Lower Multiple Closed Initial Left (HCC) Nathen Burger M.D. [facility] Procedures PT Ongoing treatment [facility] [address] [address] Referral ID Status Reason Start Date Expiration Date Visits V isits Requested Authorized [id number] Canceled 10/22/2021 10/22/2022 40 40 Encounter Details Date Type Department Care Team Description 10/25/2021 Clinical Support Department of Gustavo Burger M.D. [address] [address] Fracture Femur Rehabilitation Lesli Dias, P.T. [address] [place] [phone] Lower Multiple Services in [place] Closed In itial [place], [place] ([facility]) [address] [place] [phone] Social History Tobacco Use Types Packs/Day [...] Lower Multiple Closed Initial Left (HCC) Payor: [employer] [facility] CARE / Plan: [facility] BLUE PLUS HMO / [...] TREATMENT Treatment today consisted of: Perform the LegitTrader-Fit Total body ergometer times 10 minutes at [...] gait belt. Home Exercise Program/Education: Access Code: [email or web address] URL: [email or web address] Date: 10/22/2021 Prepared by: Lesli Dias ?? [...] min Total Treatment Time (min): 30 min RTAINMENT MUSICIAN documented in this encounter Plan of Treatment Not on filedocumented as of this encounter Visit Diagnoses Diagnosis Fracture Femur Lower Multiple Closed Ini tial Left (HCC) documented in this encounter Additional Health Concerns Assessment Noted Time PHQ-9 Depression Total Score: 18 02/14/2013 9:53 AM CD T documented as of this encounter Care Teams Pharmacovigilance Scientist Relationship Specialty Start Date End Date Cintia Cobb M.D. PCP - General 02/19/17 02/20/[address] [phone] documented as of this encounter
--- OUTSIDE RECORDS SUMMARY | 2022-08-05 10:09 | XMS_ITS | Encounter Summary ---
:1960 Author Organization [facility] Address [address] [place] [address] Care Team Providers Name Role Phone Cintia Cobb M.D. Primary Care Provider [phone] Reason for Visit Outpatient (Routine) - Closed Specialty Diagnoses / Referred By Contact Referred To Contact Procedures Physical Medicine and Diagnoses Fracture Femur Lower Multiple Closed Initial Left (HCC) Nathen Burger [facility] Dalton Riggs [address] [place] [phone] Referral ID Status Reason Start Date Expiration Date Visits Requ ested Visits Authorized [id number] Closed 10/08/2021 10/08/2022 1 1 Encounter Details Date Type Department Care Team Description 10/22/2021 Comprehensive Visit Department of Ailin Burger M.D. [address] [place] [phone] Fracture Femur Rehabilitation Lesli Dias PPiliTPili [address] [phone] Lower Multiple Services in [place] Closed In [place], [place] Left (HCC) [address] [phone] Social History Tobacco Use Types [...] eval and treat Onset Date: 09/30/21 Payor: [facility] CARE / Plan: [facility] [employer] HMO / Product Type: Medicaid HMO / [place] Visit Count: Visit count could not be [...] Procedure: ESOPHAGOGASTRODUODENOSCOPY; Surgeon: Rene Carlson M.D.; Location: [facility] GI LAB ??? LAPAROSCOPIC ASSISTED - GASTRIC BYPASS N/A 11/21/2014 Laparoscopic assisted - Gastric bypass ??? OPEN REDUCTION INTERNAL FIXATION FEMUR Left 08/13/2019 Procedure: OPEN REDUCTION INTERNAL FIXATION LEFT FEMUR; Surgeon: John Norman M.D.; Location:[facility] OR ??? OTHER CONVERTED SHX (SEE [...] for assessment. Home Exercise Program/Education: Access Code: [email or web address] URL: [email or web address] Date: 10/22/2021 Prepared by: Lesli Dias Exercises [...] Calculation Total Treatment Time (min): 45 min DESIGN CHECKER documented in this encounter Plan of Treatment Not on filedocumented as of this encounter Visit Diagnoses Diagnosis Fracture Femur Lower Multiple Closed Ini tial Left (HCC) documented in this encounter Additional Health Concerns Infection Onset Date Last Indicated Resolved Time COVID19 Pending 10/03/2021 10/03/2021 10/23/2021 6:10 AM AUTO DESIGN CHECKER Assessment Noted Time PHQ-9 Depression Total Score: 18 02/14/2013 9:53 AM CD T documented as of this encounter Care Teams Steam Presser Relationship Specialty Start Date End Date Cintia Cobb M.D. PCP - General 02/19/17 02/20/[address] [phone] documented as of this encounter
--- OUTSIDE RECORDS SUMMARY | 2022-08-05 10:09 | XMS_ITS | Encounter Summary ---
:1960 Author Organization [facility] Address [address] [place] [address] Care Team Providers Name Role Phone Cintia Cobb M.D. Primary Care Provider Reason for Visit Reason Comments Fall Left knee pain from fall at home Encounter Details Date Type Department Care Team Description 09/30/2021 Emergency [place] Noe Linares, History Of Falling (Primary Dx); Emergency Department P.A.-C. Fracture Lower End Femur Supracondylar W ith Intracondylar Extension Displaced Closed Initial Left (HCC) [address] [place] [address] [address] [place] [phone] (Wo rk) Social History Tobacco Use Types Packs/Day Years Used Date Smoking Tobacco: Never Smokeless Tobacco: Never Alcohol Use Standard Drinks/Week Comments No 0 (1 standard drink = 0.6 oz pure alcoho l) Sex Assigned at Date Recorded Not on file documented as of this encounter Last Filed Vital Signs Vital Sign Reading Time Taken Comments Blood Pressure 143/88 09/30/2021 4:15 PM PROGRAMMER ANALYST Pulse 79 09/30/2021 4:25 PM PROGRAMMER ANALYST Temperature 36.7 ??C (98.1 ??F) 09/30/2021 8:30 AM PROGRAMMER ANALYST Respiratory Rate 18 09/30/2021 8:30 AM PROGRAMMER ANALYST Oxygen Saturation 98% 09/30/2021 4:25 PM PROGRAMMER ANALYST Inhaled Oxygen Concentration - - Weight 81 kg (178 lb 9.2 oz) 09/30/2021 8:25 AM PROGRAMMER ANALYST Height - - Body Mass Index 24.22 08/12/2019 12:43 PM PROGRAMMER ANALYST documented in this encounter Medications at Time [...] with ATC who spoke to Dr Mccoy, safety companion for ortho/trauma, requested we obtain surgical prescreening [...] Left (HCC) Noe Linares P.A.-C. 10/04/21 0350 RAMMER ANALYST documented in this encounter Plan of Treatment Not on filedocumented as of this encounter Procedures Procedure Name Priority Date/Time Associated Comments Diagnosis TESTING LOCATION STAT 09/30/2021 1:22 Results for PM PROGRAMMER ANALYST this procedure are in the results section. ECG STAT 09/30/2021 10:45 Results for AM PROGRAMMER ANALYST this procedure are in the results section. CBC WITH STAT 09/30/2021 10:40 Results for DIFFERENTIAL, B AM PROGRAMMER ANALYST this procedu re are in the results section. COMPREHENSIVE STAT 09/30/2021 10:40 Results fo r METABOLIC PANEL, S/P AM PROGRAMMER ANALYST this pr ocedure are in the results section. SARS CORONAVIRUS 2, STAT 09/30/2021 10:36 Resu lts for PCR RAPID, V AM PROGRAMMER ANALYST this procedure are in the results section. DX CHEST PORTABLE 1 RAD - Semiurgent 09/30/2021 10:22 Results for VIEW (Fast; most ED AM PROGRAMMER ANALYST this procedur e patients; some are in the inpatients) results section. DX KNEE LEFT 4+ RAD - Semiurgent 09/30/2021 9:12 Resul ts for VIEWS (Fast; most ED AM PROGRAMMER ANALYST this procedur e patients; some are in the inpatients) results section. documented in this encounter Results Testing Location (09/30/2021 1:22 PM PROGRAMMER ANALYST) P athologist Signature Testing CANCELED 09/30/2021 CNFL Location 2:56 PM PROGRAMMER ANALYST Comment: REVISED RESULTS ----PREVIOUSLY REPORTED ---- [facility], Flagged as: Normal (Reported 09/30/2021 13:22) Specimen Anatomical Collection Method Collection Time Receive d Time (Source) Location / / Volume Laterality Blood 09/30/2021 1:22 PM 2 1:22 PROGRAMMER ANALYST PM PROGRAMMER ANALYST Narrative [facility] - 09/30/2021 2:56 PM PROGRAMMER ANALYST Testing Location was cancelled on 09/30/2021 at 14:56; Per provider's request. !CNCL! Noe Linares P.A.-C. LAB BLOOD BANK TEST ORDERABL ES Performing Organization Address City/[facility] Phon e Number [place] [address] [place] [address] [place] [address] System [address] ECG 12 Lead (09/30/2021 10:45 AM PROGRAMMER ANALYST) P athologist Signature Ventricular Rate 70 BPM MUSE ECG/Min MO Interval 188 ms MUSE QRSD Interval 176 ms MUSE QT Interval 462 ms MUSE QTC Interval 498 ms MUSE R [place] -83 degrees MUSE T Wave [place] 79 degrees MUSE Specimen Anatomical Collection Method Collection Time Receive d Time (Source) Location / / Volume Laterality 09/30/2021 10:45 09/30/2021 AM PROGRAMMER ANALYST 10:50 AM PROGRAMMER ANALYST Impressions MUSE - 09/30/2021 10:50 AM PROGRAMMER ANALYST Dual chamber electronic pacemaker Sinus rhythm When [...] Linares P.A.-C. ECG ORDERABLES Performing Organization Address City/[facility]/ZIP Code Phon e Number MUSE MUSE NA (ABNORMAL) Comprehensive Metabolic Panel (09/30/2021 10:40 AM PROGRAMMER ANALYST) P athologist Signature Potassium, P 4.5 3.6 - 5.2 09/30/2021 CNFL mmol/L 11:22 AM PROGRAMMER ANALYST Sodium, P 136 135 - 145 09/30/2021 CNFL mmol/L 11:22 AM PROGRAMMER ANALYST Chloride, P 102 98 - 107 09/30/2021 CNFL mmol/L 11:22 AM PROGRAMMER ANALYST Bicarbonate, P 22 22 - 29 09/30/2021 CNFL mmol/L 11:22 AM PROGRAMMER ANALYST Anion Gap, P 12 7 - 15 09/30/2021 CNFL 11:22 AM PROGRAMMER ANALYST BUN (Blood Urea 29 (H) 8 - 24 09/30/2021 CNFL Nitrogen), P mg/dL 11:22 AM PROGRAMMER ANALYST Creatinine 0.91 0.74 - 09/30/2021 CNFL 1.35 mg/dL 11:22 AM PROGRAMMER ANALYST eGFR-Black/Afri >90 >=60 09/30/2021 CNFL can Sudanese mL/min/BSA 11:22 AM PROGRAMMER ANALYST Comment: ----ADDITIONAL INFORMATION---- Estimated GFR calculated using the 2009 CKD_EPI creatinine equation. eGFR Non-Black/ 89 >=60 mL/min/BSA 09/30/2021 11:22 AM PROGRAMMER ANALYST CNFL Comment: ----ADDITIONAL INFORMATION---- Estimated GFR calculated using the 2009 CKD_EPI creatinine equation. Calcium, Total, P 8.9 8.8 - 10.2 mg/dL 09/30/2021 11:2 2 AM PROGRAMMER ANALYST CNFL Glucose, P 114 70 - 140 mg/dL 09/30/2021 11:22 AM PROGRAMMER ANALYST CNFL Protein, Total, P 6.3 6.3 - 7.9 g/dL 09/30/2021 11:22 AM PROGRAMMER ANALYST CNFL Albumin, P 4.0 3.5 - 5.0 g/dL 09/30/2021 11:22 AM PROGRAMMER ANALYST CNFL Aspartate Aminotransferase 15 8 - 48 U/L 09/30/2021 1 1:22 AM PROGRAMMER ANALYST CNFL (AST), P Alkaline Phosphatase, P 57 40 - 129 U/L 09/30/2021 11 :22 AM PROGRAMMER ANALYST CNFL Alanine Aminotransferase (ALT), 15 7 - 55 U/L 022 11:22 AM PROGRAMMER ANALYST CNFL P Bilirubin, Total, P 0.2 <=1.2 mg/dL 09/30/2021 11:22 A M PROGRAMMER ANALYST CNFL Specimen Anatomical Collection Method Collection Time Receive d Time (Source) Location / / Volume Laterality Blood (Blood, 09/30/2021 10:40 09/30/2021 Venous) AM PROGRAMMER ANALYST 10:40 AM PROGRAMMER ANALYST Noe Linares P.A.-C. LAB BLOOD ADD-ON Performing Organization Address City/State/ZIP Code Phon e Number [facility]- [address] [place] [address] [place] [address] System [address] (ABNORMAL) CBC with Differential, Blood (09/30/2021 10:40 AM PROGRAMMER ANALYST) [facility] gist Method Time Signature Hemoglobin 6.5 (L) 13.2 - 09/30/2021 CNFL 16.6 g/dL 11:16 AM PROGRAMMER ANALYST Hematocrit 23.0 (L) 38.3 - 09/30/2021 CNFL 48.6 % 11:16 AM PROGRAMMER ANALYST Erythrocytes 2.90 (L) 4.35 - 09/30/2021 CNFL 5.65 11:16 AM PROGRAMMER ANALYST x10(12)/L MCV 79.3 78.2 - 09/30/2021 CNFL 97.9 fL 11:16 AM PROGRAMMER ANALYST RBC Distrib Width 16.9 (H) 11.8 - 09/30/2021 CNFL 14.5 % 11:16 AM PROGRAMMER ANALYST Platelet Count 178 135 - 317 09/30/2021 CNFL x10(9)/L 11:16 AM PROGRAMMER ANALYST Leukocytes 6.1 3.4 - 9.6 09/30/2021 CNFL x10(9)/L 11:16 AM PROGRAMMER ANALYST Neutrophils 4.77 1.56 - 09/30/2021 CNFL 6.45 11:16 AM PROGRAMMER ANALYST x10(9)/L Lymphocytes 0.79 (L) 0.95 - 09/30/2021 CNFL 3.07 11:16 AM PROGRAMMER ANALYST x10(9)/L Monocytes 0.40 0.26 - 09/30/2021 CNFL 0.81 11:16 AM PROGRAMMER ANALYST x10(9)/L Eosinophils 0.06 0.03 - 09/30/2021 CNFL 0.48 11:16 AM PROGRAMMER ANALYST x10(9)/L Basophils 0.03 0.01 - 09/30/2021 CNFL 0.08 11:16 AM PROGRAMMER ANALYST x10(9)/L Specimen Anatomical Collection Method Collection Time Receive d Time (Source) Location / / Volume Laterality Blood (Blood, 09/30/2021 10:40 09/30/2021 Venous) AM PROGRAMMER ANALYST 10:40 AM PROGRAMMER ANALYST Noe Linares P.A.-C. LAB BLOOD ADD-ON Performing Organization Address City/[facility] Phon e Number [address] [address] [place] [address] SARS Coronavirus 2, PCR Rapid, V Symptomatic (09/30/2021 10:36 AM PROGRAMMER ANALYST) [facility] Method Time Signature SARS CoV-2, Undetected Undetected 09/30/2021 [facility] PCR, Rapid, V 11:06 AM PROGRAMMER ANALYST Comment: ----ADDITIONAL INFORMATION---- This RT-PCR test was performed using the Lola SARS-CoV-2 and Influenza A/B Reagent assay from [employer], which has received Emergency Use Authori zation(EUA) by the U.S. Food and Drug Administration . Fact sheets for this Emergency Use Autho rization (EUA) assay can be found at the following link s: For Healthcare Providers: https://www.fda.gov/media/998033/downloa d For Patients: https://www.fda.gov/media/927183/downloa d SARS Coronavirus 2, Source, Swab, Nasopharynx 09/08 10:40 AM PROGRAMMER ANALYST FL Rapid Specimen Anatomical Collection Method Collection Time Receive d Time (Source) Location / / Volume Laterality Varies 09/30/2021 10:36 09/30/2021 (Nasopharynx) AM PROGRAMMER ANALYST 10:40 AM PROGRAMMER ANALYST Noe Linares P.A.-C. LAB MICROBIOLOGY - GENERAL O RDERABLES Performing Organization Address City/[facility]/ZIP Code Phon e Number [address] [address] [place] [address] System [address] DX Chest Portable 1 View (09/30/2021 10:22 AM PROGRAMMER ANALYST) Anatomical Region Laterality Modality Chest, Thoracic RST LOS, Thoracic ARZ LOS, Thoracic N/A Computed Radiography FLA LOS Specimen (Source) Anatomical Collection Method Collection Time Re ceived Time Location / / Volume Laterality 09/30/2021 10:24 AM PROGRAMMER ANALYST Impressions 09/30/2021 10:25 AM PROGRAMMER ANALYST Comparison 07/27/21. Pacemaker. Heart size normal. Lungs are clear. Narrative 09/30/2021 10:25 AM PROGRAMMER ANALYST EXAM: DX CHEST PORTABLE 1 VIEW Procedure Note Sebas Vegas M.D. - 09/30/2021 EXAM: DX CHEST PORTABLE 1 VIEW IMPRESSION: Comparison 07/27/21. Pacemaker. Heart si ze normal. Lungs are clear. Noe Linares P.A.-C. IMG DIAGNOSTIC IMAGING PROCE DURES DX Knee Left 4+ Views (09/30/2021 9:12 AM PROGRAMMER ANALYST) Anatomical Region Laterality Modality Lower Extremity, Knee, Musculoskeletal RST LOS, Left Digital Radiography Musculoskeletal ARZ LOS, Muskuloskeletal FLA LOS Specimen (Source) Anatomical Collection Method Collection Time Re ceived Time Location / / Volume Laterality 09/30/2021 9:16 AM PROGRAMMER ANALYST Impressions 09/30/2021 9:17 AM PROGRAMMER ANALYST Comparison 04/06/20. Osteopenia. New acute fracture of distal femur diametaphysis with marked comminution, 4 cm impaction, mild medial angulation, and moderate posterior angulation. Arter ial calcifications. Narrative 09/30/2021 9:17 AM PROGRAMMER ANALYST EXAM: DX KNEE LEFT 4+ VIEWS Procedure [...] tablet 1,000 mg Given 09/30/2021 12:58 PM PROGRAMMER ANALYST 1,00 0 mg (TYLENOL) 1,000 mg, oral, Once, On Thu09/30/21 at 1233, For 1 dose droperidoL injection 1.875 mg (INAPSINE) Given 09/30/2021 12:58 PM PROGRAMMER ANALYST 1.875 mg 1.875 mg, intravenous, Once, On Thu09/30/21 at 1233, For 1 dose HYDROmorphone injection 1 mg (DILAUDID) Given 09/30/2021 10:58 AM PROGRAMMER ANALYST 1 mg 1 mg, intravenous, Once, On Thu09/30/21 at 1051, For 1 dose HYDROmorphone injection 1 mg (DILAUDID) Given 09/30/2021 11:15 AM PROGRAMMER ANALYST 1 mg 1 mg, intravenous, Once, On Thu09/30/21 at 1113, For 1 dose ketorolac injection 15 mg (TORADOL) Given 09/30/2021 3:30 PM PROGRAMMER ANALYST 15 mg 15 mg, intravenous, Once, On Thu09/30/21 at 1521, For 1 dose, Adult IV push rate: Over 15 seconds. Peds IV push rate: Over 1 minute. 60 mg dose only for IM, not recommended for IV. ketorolac tablet 10 mg (TORADOL) Given 09/30/2021 9:11 AM PROGRAMMER ANALYST 10 mg 10 mg, oral, Once, On Thu09/30/21 at 0841, For 1 dose NaCl 0.9 % bolus 1,000 mL New Bag 09/30/2021 2:29 PM PROGRAMMER ANALYST 1,000 mL 1000 mL/hr 1,000 mL, intravenous, [...] mg per tablet Given 09/08 9:11 AM PROGRAMMER ANALYST 1 tablet 1 tablet (PERCOCET) 1 tablet, oral, Once, On Thu09/30/21 at 0841, For 1 dose documented in this encounter Active and Recently Administered Medications Times are shown in PROGRAMMER ANALYST. Scheduled Medication Order 09/28/2021 09/29/2021 09/30/2021 acetaminophen [...] COVID19 Pending 09/30/2021 09/30/2021 09/30/2021 11:06 AM PROGRAMMER ANALYST Assessment Noted Time PHQ-9 Depression Total Score: 18 02/14/2013 9:53 AM CD T documented as of this encounter Care Teams Vibrating Screen Operator Relationship Specialty Start Date End Date Cintia Cobb M.D. PCP - General 02/19/17 02/20/[address] [phone] documented as of this encounter
--- OUTSIDE RECORDS SUMMARY | 2022-08-05 10:09 | XMS_ITS | Encounter Summary ---
:1960 Author Organization [facility] Address [address] [place] [address] Care Team Providers Name Role Phone Cintia Cobb M.D. Primary Care Provider [phone] Reason for Visit Physical Therapy (Routine) - Canceled Specialty Diagnoses / Procedures Referred By Contact Refer red To Contact Diagnoses Fracture Femur Lower Multiple Closed Initial [facility] ([facility]) Nathen Burger M.D. [facility] Procedures PT Ongoing treatment [facility] [address] [address] Referral ID Status Reason Start Date Expiration Date Visits V isits Requested Authorized [id number] Canceled 10/22/2021 10/22/2022 40 40 Encounter Details Date Type Department Care Team Description 11/15/2021 Clinical Support Department of Gustavo Burger M.D. [address] [address] Fracture Femur Rehabilitation Emelia Acosta, P.TPili Lower Multiple Services in [facility] [place], [place] ([facility]) [address] [place] [phone] Social History Tobacco Use Types Packs/Day Years [...] Lower Multiple Closed Initial Left (HCC) Payor: [employer] [place] CARE / Plan: [facility] BLUE PLUS [...] 13 min Therapeutic Exercise (min): 22 min ING DEPARTMENT SUPERVISOR documented in this encounter Plan of Treatment Not on filedocumented as of this encounter Visit Diagnoses Diagnosis Fracture Femur Lower Multiple Closed Ini tial Left (HCC) documented in this encounter Additional Health Concerns Assessment Noted Time PHQ-9 Depression Total Score: 18 02/14/2013 9:53 AM CD T documented as of this encounter Care Teams Openstack Developer Relationship Specialty Start Date End Date Cintia Cobb M.D. PCP - General 02/19/17 02/20/[address] [address] documented as of this encounter
--- OUTSIDE RECORDS SUMMARY | 2022-08-05 10:09 | XMS_ITS | Encounter Summary ---
:1960 Author Organization [facility] Address [address] [place] [address] Care Team Providers Name Role Phone Cintia Cobb M.D. Primary Care Provider [phone] Reason for Visit Physical Therapy (Routine) - Canceled Specialty Diagnoses / Procedures Referred By Contact Refer red To Contact Diagnoses Fracture Femur Lower Multiple Closed Initial Left (HCC) Nathen Burger M.D. [facility] Procedures PT Ongoing treatment [facility] [address] [address] Referral ID Status Reason Start Date Expiration Date Visits V isits Requested Authorized [id number] Canceled 10/22/2021 10/22/2022 40 40 Encounter Details Date Type Department Care Team Description 11/28/2021 Clinical Support Department of Gustavo Burger M.D. [address] [address] Fracture Femur Rehabilitation Lesli Dias P.T. [address] [place] [phone] Lower Multiple Services in [place] Cl[place] it[place], [place] ([facility]) [address] [place] [phone] Social History Tobacco Use Types Packs/Day [...] Lower Multiple Closed Initial Left (HCC) Payor: [employer] [place] CARE / Plan: [facility] BLUE PLUS HMO / Product Type: [...] TREATMENT Treatment today consisted of: Performed the [employer] Total body ergometer times 16??minutes at a [...] documented as of this encounter Care Teams Winter Sports Manager Relationship Specialty Start Date End Date Cintia Cobb M.D. PCP - General 02/19/17 02/20/[address] [place] [address] documented as of this encounter
--- OUTSIDE RECORDS SUMMARY | 2022-08-05 10:09 | XMS_ITS | Encounter Summary ---
:1960 Author Organization [facility] Address [address] [place] [address] Care Team Providers Name Role Phone Cintia Cobb M.D. Primary Care Provider [phone] Reason for Visit Reason Comments ankle wound Wound on right ankle will no t healing 10 days Appointment Request (Routine) - Closed Specialty Diagnoses / Procedures Referred By Contact Refer red To Contact Family Medicine Referral ID Status Reason Start Date Expiration Date Visits Requ ested Visits Authorized [id number] Closed 12/02/2021 12/02/2022 1 1 Encounter Details Date Type Department Care Team Description 12/03/2021 Office Visit Department of [facility] Reed Cobb Lower Leg Open Initial Right (Primary Dx); Medicine, Jose Daniel Piper M.D. Diabetes Mellitus Type 2 Peripheral Neur opathy (HCC) [facility], [address] [address] [place], [place] [phone] (W ork) [phone] Social History Tobacco Use Types Packs/Day Years [...] is tender to palpation. Pictures uploaded into Group Therapy Records. ASSESSMENT / PLAN #1 Wound Lower Leg [...] Recommended the patient follow-up with a vascular mechanical technical service specialist. We will likely pursue this through the [facility]. Wound care instructions were given to his [...] documented as of this encounter Care Teams Marketing Development Specialist Relationship Specialty Start Date End Date Cintia Cobb M.D. PCP - General 02/19/17 02/20/[address] [place] [phone] documented as of this encounter
--- OUTSIDE RECORDS SUMMARY | 2022-08-05 10:09 | XMS_ITS | Encounter Summary ---
:1960 Author Organization [facility] Address [address] [place] [address] Care Team Providers Name Role Phone Cintia Cobb M.D. Primary Care Provider [phone] Reason for Visit Physical Therapy (Routine) - Canceled Specialty Diagnoses / Procedures Referred By Contact Refer red To Contact Diagnoses Fracture Femur Lower Multiple Closed Initial Left (HCC) Nathen Burger M.D. [facility] Procedures PT Ongoing treatment [facility] [address] [address] Referral ID Status Reason Start Date Expiration Date Visits V isits Requested Authorized [id number] Canceled 10/22/2021 10/22/2022 40 40 Encounter Details Date Type Department Care Team Description 11/01/2021 Clinical Support Department of Gustavo Burger M.D. [address] [address] Fracture Femur Rehabilitation Lesli Dias, P.T. [address] [place] [phone] Lower Multiple Services in [place] Closed In itial [place], [place] ([facility]) [address] [place] [phone] Social History Tobacco Use Types Packs/Day [...] Lower Multiple Closed Initial Left (HCC) Payor: [employer] [facility] CARE / Plan: [facility] HMO / Product Type: Medicaid HMO / [...] 15 min Therapeutic Exercise (min): 25 min OGRAPHY TECHNICIAN documented in this encounter Plan of Treatment Not on filedocumented as of this encounter Visit Diagnoses Diagnosis Fracture Femur Lower Multiple Closed Ini tial Left (HCC) documented in this encounter Additional Health Concerns Assessment Noted Time PHQ-9 Depression Total Score: 18 02/14/2013 9:53 AM CD T documented as of this encounter Care Teams Machine Set Up Technician Relationship Specialty Start Date End Date Cintia Cobb M.D. PCP - General 02/19/17 02/20/[address] [address] documented as of this encounter
--- OUTSIDE RECORDS SUMMARY | 2022-08-05 10:09 | XMS_ITS | Encounter Summary ---
:1960 Author Organization [facility] Address [address] [place] [address] Care Team Providers Name Role Phone Cintia Cobb M.D. Primary Care Provider [phone] Reason for Visit Physical Therapy (Routine) - Canceled Specialty Diagnoses / Procedures Referred By Contact Refer red To Contact Diagnoses Fracture Femur Lower Multiple Closed Initial Left (HCC) Nathen Burger M.D. [facility] Procedures PT Ongoing treatment [facility] [address] [address] Referral ID Status Reason Start Date Expiration Date Visits V isits Requested Authorized [id number] Canceled 10/22/2021 10/22/2022 40 40 Encounter Details Date Type Department Care Team Description 11/07/2021 Clinical Support Department of Gustavo Burger M.D. [address] [address] Fracture Femur Rehabilitation Lesli Dias, P.T. [address] [place] [phone] Lower Multiple Services in [place] Closed In itial [place], [place] ([facility]) [address] [place] [phone] Social History Tobacco Use Types Packs/Day [...] Lower Multiple Closed Initial Left (HCC) Payor: [employer] [facility] CARE / Plan: [facility] BLUE PLUS HMO / Product Type: [...] min Total Treatment Time (min): 45 min LATORY MANAGER documented in this encounter Plan of Treatment Not on filedocumented as of this encounter Visit Diagnoses Diagnosis Fracture Femur Lower Multiple Closed Ini tial Left (HCC) documented in this encounter Additional Health Concerns Assessment Noted Time PHQ-9 Depression Total Score: 18 02/14/2013 9:53 AM CD T documented as of this encounter Care Teams Hydrology Professor Relationship Specialty Start Date End Date Cintia Cobb M.D. PCP - General 02/19/17 02/20/[address] [address] documented as of this encounter
--- OUTSIDE RECORDS SUMMARY | 2022-08-05 10:10 | XMS_ITS | Encounter Summary ---
:1960 Author Organization [facility] Address [address] [place] [address] Care Team Providers Name Role Phone Cintia Cobb M.D. Primary Care Provider [phone] Reason for Visit Reason Comments Post Surgery Question Encounter Details Date Type Department Care Team Description 04/10/2021 Clinical Department of [place] Post Surgery Communication Family MedicineMin Megan Questio n [place] [facility], M.[facility]. [facility], in [address] [address] [place], [place] [phone] (Work) [phone] Social History Tobacco Use Types Packs/Day Years [...] many times and nothing has happened. This service writer advisor informed patient that this is highly not recommended by his surgeon, as it can lead to dislocation. Patient then began carrying on and making negative slurs about the surgeon and wanted this service writer advisor to tell that to his surgeon. This service writer advisor attempted to deescalate and change the conversation to see if there is any other other questions to address. Patient continued to say rude comments about the surgeon. Patient continued to complain, so service writer advisor ended the call. Telephone Encounter - Loly [...] us to call his wifes phone at [phone]. A detailed message can be left on this line if she doesn't answer. His main number has [employer] line blocked and no voicemail Name of [...] documented as of this encounter Care Teams Professional Poker Player Relationship Specialty Start Date End Date Cintia Cobb M.D. PCP - General 02/19/17 02/20/[address] [address] documented as of this encounter
--- OUTSIDE RECORDS SUMMARY | 2022-08-05 10:10 | XMS_ITS | Encounter Summary ---
:1960 Author Organization [facility] Address [address] [place] [address] Care Team Providers Name Role Phone Cintia Cobb M.D. Primary Care Provider Encounter Details Date Type Department Care Team Description 05/14/[address] [facility] PCP [facility] Priyanka Cobb Mellitus Type OLEG Piper M.D. 2 With Diabetic [address] [address] Neuropathy ( HCC) [place] [address] (Wo rk) Social History Tobacco [...] documented as of this encounter Care Teams Invoice Coder Relationship Specialty Start Date End Date Cintia Cobb M.D. PCP - General 02/19/17 02/20/22 [address] [facility] [address] [place] [address] documented as of this encounter
--- OUTSIDE RECORDS SUMMARY | 2022-08-05 10:10 | XMS_ITS | Encounter Summary ---
:1960 Author Organization [facility] Address [address] [place] [address] Care Team Providers Name Role Phone Cintia Cobb M.D. Primary Care Provider [phone] Reason for Visit Reason Comments SOB/ weight gain Encounter Details Date Type Department Care Team Description 04/05/2021 Clinical Communication Department of [place] SOB/ weight gain Family MedicineMin Megan [place] S, M.D. Clinic, in [address] [address] [place], [place] [phone] (Work) [phone] Social History Tobacco Use Types Packs/Day Years [...] as of this encounter Care Teams Dish Carrier Relationship Specialty Start Date End Date Cintia Cobb M.D. PCP - General 02/19/17 02/20/[address] [place] [address] documented as of this encounter
--- OUTSIDE RECORDS SUMMARY | 2022-08-05 10:10 | XMS_ITS | Encounter Summary ---
:1960 Author Organization [facility] Address [address] [place] [address] Care Team Providers Name Role Phone Cintia Cobb M.D. Primary Care Provider [phone] Reason for Visit Reason Comments Gabapentin/ SE Encounter Details Date Type Department Care Team Description 03/04/2021 Clinical Communication Department of [facility] millie/ Family MedicineMin Megan [place] S, M.D. Clinic, in [address] [address] [place], [place] [phone] (Work) [phone] Social History Tobacco Use Types Packs/Day Years [...] documented as of this encounter Care Teams Dope Mixer Relationship Specialty Start Date End Date Cintia Cobb M.D. PCP - General 02/19/17 02/20/[address] [place] [phone] documented as of this encounter
--- OUTSIDE RECORDS SUMMARY | 2022-08-05 10:10 | XMS_ITS | Encounter Summary ---
:1960 Author Organization [facility] Address [address] [place] [address] Care Team Providers Name Role Phone Cintia Cobb M.D. Primary Care Provider [phone] Reason for Visit Reason Comments Medical Information Encounter Details Date Type Department Care Team Description 04/15/2021 Nurse Triage Department of [facility] Ashley Cole Medic al Information Medicine, [facility], in [address] [address] [place], [place] [phone] (Work) [phone] Social History Tobacco Use Types Packs/Day Years Used Date Smoking Tobacco: Never Smokeless Tobacco: Never Alcohol Use Standard Drinks/Week Comments No 0 (1 standard drink = 0.6 oz pure alcoho l) Sex Assigned at Date Recorded Not on file documented as of this encounter Miscellaneous Notes Telephone Encounter - Ashley Cole R.N. - 04/15/2021 8:21 AM CDT [...] documented as of this encounter Care Teams Stunner Relationship Specialty Start Date End Date Cintia Cobb M.D. PCP - General 02/19/17 02/20/[address] [place] [address] documented as of this encounter
--- OUTSIDE RECORDS SUMMARY | 2022-08-05 10:10 | XMS_ITS | Encounter Summary ---
:1960 Author Organization [facility] Address [address] [place] [address] Care Team Providers Name Role Phone Cintia Cobb M.D. Primary Care Provider [phone] Encounter Details Date Type Department Care Team Description 07/14/2021 Clinical Communication Department of [facility] Medicine, Jose Daniel Piper M.D. [address] [address] [place], [place] [phone] (Work) [phone] Social History Tobacco Use Types Packs/Day Years Used Date Smoking Tobacco: Never Smokeless Tobacco: Never Alcohol Use Standard Drinks/Week Comments No 0 (1 standard drink = 0.6 oz pure alcoho l) Sex Assigned at Date Recorded Not on file documented as of this encounter Miscellaneous Notes Telephone Encounter - Cintia Cobb M.D. - 07/14/2021 6:04 PM SENIOR ENGINEERING TEAM LEADER Received this message from patient via email: [...] adjust the dose. Thanks, Cintia Song MD OR ENGINEERING TEAM LEADER documented in this encounter Plan of Treatment Not on filedocumented as of this encounter Visit Diagnoses Not on filedocumented in this encounter Additional Health Concerns Assessment Noted Time PHQ-9 Depression Total Score: 18 02/14/2013 9:53 AM CD T documented as of this encounter Care Teams Cryptographic Technician Relationship Specialty Start Date End Date Cintia Cobb M.D. PCP - General 02/19/17 02/20/[address] [address] documented as of this encounter
--- OUTSIDE RECORDS SUMMARY | 2022-08-05 10:10 | XMS_ITS | Encounter Summary ---
:1960 Author Organization [facility] Address [address] [place] [address] Care Team Providers Name Role Phone Cintia Cobb M.D. Primary Care Provider [phone] Reason for Visit Reason Comments FYI Encounter Details Date Type Department Care Team Description 04/15/2021 Clinical Communication [facility], Jose Daniel Piper M.D. [address] [address] [place], [place] [phone] (Work) [phone] Social History Tobacco Use Types Packs/Day Years [...] you. It has appeared you have blocked [facility] from calling your phone number. Dr. Song [...] your personal email. Please call us at [phone] to utilize your [facility] Portal or enable phone calls/ voicemails to you from [facility] so we can communicate effectively with you. Thank you Telephone Encounter - Shanice Ferguson - 04/15/2021 8:40 AM CDT Reason for Communication: gabapentin Current - pt blocked the phone number for [facility] so he cannot get a call back. Pt asked that you email him at [email or web address]. Can Nursing/Provider leave a detailed message?: no [...] documented as of this encounter Care Teams Pharmacist Intern Relationship Specialty Start Date End Date Cintia Cobb M.D. PCP - General 02/19/17 02/20/[address] [place] [phone] documented as of this encounter
--- OUTSIDE RECORDS SUMMARY | 2022-08-05 10:10 | XMS_ITS | Encounter Summary ---
:1960 Author Organization [facility] Address [address] [place] [address] Care Team Providers Name Role Phone Cintia Cobb M.D. Primary Care Provider [phone] Reason for Visit Reason Comments Shortness of Breath COVID Nurse Line Encounter Details Date Type Department Care Team Description 04/05/2021 Nurse Triage Department of [facility] Joy Pineda Shor tness of Breath; Medicine, [employer] [facility] COVID Nurse Line Clinic, in [place] [phone] [address] Social History Tobacco Use Types [...] [2] SAME as normal Protocols used: BREATHING [id number] Care Advice Patient/Caregiver understands and will follow [...] Screening ASSESSMENT Region Select appropriate region: : [place] Age Pathway Select approprite pathway: : Adult [...] care: Yes The following references were used: [facility] novel coronavirus (COVID- 19) resources Nursing judgement documented in this encounter Plan of Treatment Not on filedocumented as of this encounter Visit Diagnoses Not on filedocumented in this encounter Additional Health Concerns Assessment Noted Time PHQ-9 Depression Total Score: 18 02/14/2013 9:53 AM CD T documented as of this encounter Care Teams Research Development Manager Relationship Specialty Start Date End Date Cintia Cobb M.D. PCP - General 02/19/17 02/20/[address] [phone] documented as of this encounter
--- OUTSIDE RECORDS SUMMARY | 2022-08-05 10:10 | XMS_ITS | Encounter Summary ---
:1960 Author Organization [facility] Address [address] [place] [address] Care Team Providers Name Role Phone Cintia Cobb M.D. Primary Care Provider [phone] Reason for Referral Outpatient (Routine) - Closed Specialty Diagnoses / Procedures Referred By Contact Refer red To Contact Diagnoses Pain Knee Left Kacie Huerta APRN, [facility] [place] [facility] Procedures wyz-cwgl-drswipse-elbow arthrocentesis: L knee joint C.N.P., D.N.P. [address] [place] [address] Referral ID Status Reason Start Date Expiration Date Visits Requ ested Visits Authorized [id number] Closed 07/12/2021 07/12/2022 1 1 utpatient (Routine) - Closed Specialty Diagnoses / Procedures Referred By Contact Refer red To Contact Diagnoses Pain Hip Left Kacie Huerta APRN, [facility] [place] [facility] Procedures tys-ewrc-katbudyg-elbow arthrocentesis: L greater troch bursa C.N.P., D.N.P. [address] [place] [address] Referral ID Status Reason Start Date Expiration Date Visits Requ ested Visits Authorized [id number] Closed 07/12/2021 07/12/2022 1 1 Reason for Visit Reason Comments Follow-up Encounter Details Date Type Department Care Team Description 07/12/2021 Office Visit Department of Kacie Huerta, Pain Knee L eft (Primary Dx); Orthopedic Surgery in [place], Pain Hip Left Merlyn Dean D.N.P. [address] [place] [phone] Social History Tobacco Use Types Packs/Day Years Used Date Smoking Tobacco: Never Smokeless Tobacco: Never Alcohol Use Standard Drinks/Week Comments No 0 (1 standard drink = 0.6 oz pure alcoho l) Sex Assigned at Date Recorded Not on file documented as of this encounter Progress Notes Kacie Huerta, [place], iFdelNPiliP. - 07/12/2021 8:00 AM CDT Ed is [...] in his symptoms. His questions were answered MACHINE ADJUSTER documented in this encounter Procedure Notes Theresa Santiago RAug[facility]ine - 07/12/2021 8:00 AM CDTAssociated Order(s): axw-rdyf-lhcfkdki-elbow arthrocentesis: L greater troch bursa; lhk-ylop-moxroabo -elbow arthrocentesis: L knee joint Post-Procedure Diagnose(s): [...] dressing care and follow-up with ordering provider MACHINE ADJUSTER documented in this encounter Plan of Treatment Not on filedocumented as of this encounter Procedures Procedure Name Priority Date/Time Associated Diagnosis Comme nts [place] ARTHCS ASP/INJ Routine 07/12/2021 8:50 AM Pain Knee Left Re sults for this MJR JT WO US CDT procedure are i n the results section. [place] ARTHCS ASP/INJ Routine 07/12/2021 8:48 AM Pain Hip Left Res ults for this MJR JT WO US CDT procedure are i n the results section. documented in this encounter Results [place] ARTHCS ASP/INJ MJR JT WO US (07/12/2021 [...] Code Phon e Number MMODAL MMODAL NA [place] ARTHCS ASP/INJ MJR JT WO US (07/12/2021 [...] documented as of this encounter Care Teams Platinumsmith Relationship Specialty Start Date End Date Cintia Cobb M.D. PCP - General 02/19/17 02/20/[address] [phone] documented as of this encounter
--- OUTSIDE RECORDS SUMMARY | 2022-08-05 10:10 | XMS_ITS | Encounter Summary ---
:[address] [facility] Address [address] [place] [address] Care Team Providers Name Role Phone Cintia Cobb M.D. Primary Care Provider [phone] Reason for Visit Reason Comments Chest Wall Pain 61 year old male admits with concerns of right rib pain. Pt states he was working on his truck and was leaning on a piece of the truck and it has hurt ever since Encounter Details Date Type Department Care Team Description 07/27/2021 Emergency [place] [facility] Joaquín Grayson, Elvi Chest Wall Department P.A.-C. (Primary Dx) [id number] [place] [address] [place] [address] [phone] Social History Tobacco Use Types Packs/Day Years [...] (176 lb 5.9 oz) 07/27/2021 11:56 AM TECHNICAL AID Height - - Body Mass Index 23.92 08/12/2019 12:43 PM TECHNICAL AID documented in this encounter Discharge Instructions Discharge InstructionsCrJoaquín burris P.A.-C. - 07/27/2021 1:10 PM TECHNICAL AID Come back if needed NICAL AID AttachmentsThe following attachments cannot be sent through Care Everywhere. Chest Wall Pain (Vietnamese)documented in this encounter Medications at Time of [...] daily. 1 each 1 each 0 [facility]. Dx: E11.9. Brand per insurance [...] pneumothorax. I gave him a prescription for Coffeen to use for more severe pain. He will follow-up in clinic as needed. DIFFERENTIAL DIAGNOSIS Rib fracture, muscle strain, pneumothorax, costochondritis I personally reviewed the radiology image(s). The Radiology exam interpretation(s) is/are normal. Final Diagnoses: as of 07/27/21 1316 Pain Chest Wall Joaquín Grayson P.A.-C. 07/27/21 1316 NICAL AID documented in this encounter Plan of Treatment Not on filedocumented as of this encounter Procedures Procedure Name Priority Date/Time Associated Comments Diagnosis DX RIBS RIGHT 2 VIEWS RAD - Routine 07/27/2021 Resul ts for WITH CHEST (most inpatients 12:42 PM TECHNICAL AID this proced ure POSTEROANTERIOR 1 VIEW and all are i n the outpatients) results section. documented in this encounter Results DX Ribs Right 2 Views with Chest Posteroanterior 1 View (07/27/2021 12:42 PM TECHNICAL AID) Anatomical Region Laterality Modality Ribs, Chest, Musculoskeletal RST LOS, Musculoskeletal Right Digital Radiography ARZ LOS, Muskuloskeletal FLA LOS Specimen (Source) Anatomical Collection Method Collection Time Re ceived Time Location / / Volume Laterality 07/27/2021 1:25 PM TECHNICAL AID Impressions 07/27/2021 1:26 PM TECHNICAL AID No acute appreciable rib fracture. No acute radiographic abnormality. Narrative 07/27/2021 1:26 PM TECHNICAL AID EXAM: DX RIBS RIGHT 2 VIEWS WITH CHEST POSTEROANTERIOR 1 VIEW COMPARISON: 01/20/2017 FINDINGS: Patient's jewelry projects ove r the upper lungs, limiting evaluation. Dual lead left chest cardiac device. Car diac silhouette is within normal limits. Pulmonary vasculature is distinct. No ac [place] consolidation, pleural effusion, or pneumothorax. No acute [...] limits. Pulmonary vasculature is distinct. No ac [place] consolidation, pleural effusion, or pneumothorax. No acute appreciable rib f racture. IMPRESSION: No acute appreciable rib fracture. No ac [place] radiographic abnormality. Joaquín Grayson P.A.-C. [place] DIAGNOSTIC IMAGING PROCE DURES documented in this encounter Visit Diagnoses Diagnosis Pain Chest Wall - Primary documented in this encounter Additional Health Concerns Assessment Noted Time PHQ-9 Depression Total Score: 18 02/14/2013 9:53 AM CD T documented as of this encounter Care Teams Senior Internet Sales Consultant Relationship Specialty Start Date End Date Cintia Cobb M.D. PCP - General 02/19/17 02/20/[address] [place] [address] documented as of this encounter
--- OUTSIDE RECORDS SUMMARY | 2022-08-05 10:10 | XMS_ITS | Encounter Summary ---
:1960 Author Organization [facility] Address [address] [place] [address] Care Team Providers Name Role Phone Cintia Cobb M.D. Primary Care Provider [phone] Reason for Visit Reason Comments Triage Encounter Details Date Type Department Care Team Description 07/25/2021 Nurse Triage Department of [employer] Drake Gilbert RAugustine Triage Medicine, [place] [address] [facility], in [facility] [address] [place] [address] [place] [phone] Social History Tobacco Use Types Packs/Day [...] next 24 hours. Call your doctor (or INSULATOR APPRENTICE/PA) when the office opens and make an [...] acetaminophen, ibuprofen, or naproxen. * They are vbqr-aup-iiudxpz (OTC) pain drugs. You can buy them [...] AND [2] still hurts Protocols used: CHEST RQCRPI-RNBNK-NV LER APPRENTICE documented in this encounter Plan of Treatment Not on filedocumented as of this encounter Visit Diagnoses Not on filedocumented in this encounter Additional Health Concerns Assessment Noted Time PHQ-9 Depression Total Score: 18 02/14/2013 9:53 AM CD T documented as of this encounter Care Teams Molasses Feed Mixer Relationship Specialty Start Date End Date Cintia Cobb M.D. PCP - General 02/19/17 02/20/[address] [address] documented as of this encounter
--- OUTSIDE RECORDS SUMMARY | 2022-08-05 10:10 | XMS_ITS | Encounter Summary ---
:1960 Author Organization [facility] Address [address] [place] [address] Care Team Providers Name Role Phone Cintia Cobb M.D. Primary Care Provider [phone] Reason for Visit Reason Comments Appointment Encounter Details Date Type Department Care Team Description 04/15/2021 Clinical Communication Department of [facility], App[facility]ment Medicine, Jose Daniel Piper M.D. [address] [address] [place], [place] [phone] (Work) [phone] Social History Tobacco Use Types Packs/Day Years [...] phone number can I reach you at? [phone] ('s number) New Symptom and duration of [...] after 6:00 PM. Routing: - transfer to medical staff manager line if new or worsening symptoms - team rubber thread spooler for continued symptoms - TELEGRAPHIC TYPEWRITER OPERATOR pool for chronic issue or medication refill/question documented in this encounter Plan of Treatment Not on filedocumented as of this encounter Visit Diagnoses Not on filedocumented in this encounter Additional Health Concerns Assessment Noted Time PHQ-9 Depression Total Score: 18 02/14/2013 9:53 AM CD T documented as of this encounter Care Teams State Game Warden Relationship Specialty Start Date End Date Cintia Cobb M.D. PCP - General 02/19/17 02/20/[address] [address] documented as of this encounter
--- OUTSIDE RECORDS SUMMARY | 2022-08-05 10:10 | XMS_ITS | Encounter Summary ---
:1960 Author Organization [facility] Address [address] [place] [address] Care Team Providers Name Role Phone Cintia Cobb M.D. Primary Care Provider [phone] Reason for Visit Reason Comments Medication Question Encounter Details Date Type Department Care Team Description 03/01/2021 [facility], Cintia Copeland M.D. Clinic, in [address] [address] [place], [place] [phone] (Work) [phone] Social History Tobacco Use Types Packs/Day Years [...] What number can I reach you at? [phone] Magali What is the patient's request? Ed [...] symptoms or side effects, please route to [facility] pool of prescribing provider - if new symptoms have having side effects, please transfer to off-site triage ([phone]) documented in this encounter Plan of Treatment Not on filedocumented as of this encounter Visit Diagnoses Not on filedocumented in this encounter Additional Health Concerns Assessment Noted Time PHQ-9 Depression Total Score: 18 02/14/2013 9:53 AM CD T documented as of this encounter Care Teams Supervisor Train Operations Relationship Specialty Start Date End Date Cintia Cobb M.D. PCP - General 02/19/17 02/20/[address] [address] documented as of this encounter
--- OUTSIDE RECORDS SUMMARY | 2022-08-05 10:10 | XMS_ITS | Encounter Summary ---
:1960 Author Organization [facility] Address [address] [place] [address] Care Team Providers Name Role Phone Cintia Cobb M.D. Primary Care Provider Reason for Visit Reason Comments Gabapentin question Encounter Details Date Type Department Care Team Description 03/18/2021 Clinical Department of [facility] [place] [facility], M.D[facility] Clinic, in [address] [address] [place], [place] [phone] (Work) [phone] Social History Tobacco Use Types Packs/Day Years [...] until after he hears a recommendation from Cintia Copeland M.D. Patient states that the best way to contact him is to call his wifes phone and leave a message on there. PLAN Disposition/Recommendation: recommended continue engagement in self-management activities Information/Education: patient/caller able to teach back Caller agreeable to plan of care: yes The following references were used: nursing clinical judgement Telephone Encounter - Bella Amezquita L.P.N. - 03/18/2021 3:18 PM CDT Attempted [...] documented as of this encounter Care Teams Optometry Assistant Relationship Specialty Start Date End Date Cintia Cobb M.D. PCP - General 02/19/17 02/20/[address] [place] [address] documented as of this encounter
--- OUTSIDE RECORDS SUMMARY | 2022-08-05 10:10 | XMS_ITS | Encounter Summary ---
:1960 Author Organization [facility] Address [address] [place] [address] Care Team Providers Name Role Phone Cintia Cobb M.D. Primary Care Provider [phone] Reason for Visit Reason Comments Follow-up Encounter Details Date Type Department Care Team Description 03/12/2021 Clinical Communication Department of [facility], Follow-up Medicine, Jose Daniel Piper M.D. [facility], [address] [address] [place], [place] [phone] (Work) [phone] Social History Tobacco Use Types Packs/Day Years [...] a headache. Cintia Segura Telephone Encounter - Pretehi Wagner R.N. - 03/12/2021 9:31 AM CDT [...] documented as of this encounter Care Teams Metal Casket Maker Relationship Specialty Start Date End Date Cintia Cobb M.D. PCP - General 02/19/17 02/20/[address] [phone] documented as of this encounter
--- OUTSIDE RECORDS SUMMARY | 2022-08-05 10:11 | XMS_ITS | Encounter Summary ---
:1960 Author Organization [facility] Address [address] [place] [address] Care Team Providers Name Role Phone Cintia Cobb M.D. Primary Care Provider [phone] Encounter Details Date Type Department Care Team Description 11/14/2020 Orders Only [facility] Sa chico Brand M.D. [address] [place], [place] [phone] (Wo rk) Social History [...] documented as of this encounter Care Teams Patient Clerical Assistant Relationship Specialty Start Date End Date Cintia Cobb M.D. PCP - General 02/19/17 02/20/[address] [place] [address] documented as of this encounter
--- OUTSIDE RECORDS SUMMARY | 2022-08-05 10:11 | XMS_ITS | Encounter Summary ---
:1960 Author Organization [facility] Address [address] [place] [address] Care Team Providers Name Role Phone Cintia Cobb M.D. Primary Care Provider [phone] Reason for Visit Reason Comments Med Refill Encounter Details Date Type Department Care Team Description 11/20/2020 Refill Department of [facility] Angélica Cobb Med Refill Medicine, Jose Daniel Piper M.D. Clinic, in [address] [address] [place], [place] [address] [phone] Social History Tobacco Use Types Packs/Day Years [...] documented as of this encounter Care Teams Artificial Flower Maker Relationship Specialty Start Date End Date Cintia Cobb M.D. PCP - General 02/19/17 02/20/[address] [place] [phone] documented as of this encounter
--- OUTSIDE RECORDS SUMMARY | 2022-08-05 10:11 | XMS_ITS | Encounter Summary ---
:1960 Author Organization [facility] Address [address] [place] [address] Care Team Providers Name Role Phone Cintia Cobb M.D. Primary Care Provider [phone] Reason for Referral MRI/CAT/PET Scan (Routine) - Closed Specialty Diagnoses / Procedures Referred By Contact Refer red To Contact Radiology Diagnoses Pain Low Back Unspecified Kacie Huerta APRN, [facility] [place] [facility] Procedures CT Lumbar Spine without IV Contrast C.N.P., D.N.P. [address] [place] [address] Referral ID Status Reason Start Date Expiration Date Visits Requ ested Visits Authorized [id number] Closed 08/22/2020 08/22/2021 1 1 LOADER Reason for Visit MRI/CAT/PET Scan (Routine) - Closed Specialty Diagnoses / Procedures Referred By Contact Refer red To Contact Radiology Diagnoses Pain Low Back Unspecified Kacie Huerta [facility]N [facility] [place] [facility] Procedures CT Lumbar Spine without IV Contrast C.N.P., D.N.P. [address] [place] [address] Referral ID Status Reason Start Date Expiration Date Visits Requ ested Visits Authorized [id number] Closed 08/22/2020 08/22/2021 1 1 Encounter Details Date Type Department Care Team Description 08/30/2020 Hospital Encounter Department of Radiology Otf Huerta, Pain Low Back in [place], [place], C.N.P., [place].N.P. [address] [address] Social History Tobacco Use [...] for this WITHOUT IV (most inpatients PM RACK LOADER procedure a re in CONTRAST and all the results outpatients) section. documented in this encounter Results CT Lumbar Spine without IV Contrast (08/30/2020 1:14 PM RACK LOADER) Anatomical Region Laterality Modality Lumbar Spine, Neuroradiology RST LOS, Neuroradiology N/A Computed Tomography ARZ LOS, Neuroradiology FLA [facility] Specimen (Source) Anatomical Collection Method Collection Time Re ceived Time Location / / Volume Laterality 08/30/2020 1:24 PM RACK LOADER Impressions 08/30/2020 1:32 PM RACK LOADER Spondylotic changes, as detailed level by level, includes moderate to severe spinal canal narrowing at L3-L 4 and moderate foraminal/extraforaminal narrowing on the left at L5-S1. Narrative 08/30/2020 1:32 PM RACK LOADER EXAM: CT LUMBAR SPINE WITHOUT IV CONTRAST [...] documented as of this encounter Care Teams Extrusion Technician Relationship Specialty Start Date End Date Cintia Cobb M.D. PCP - General 02/19/17 02/20/[address] [phone] documented as of this encounter
--- OUTSIDE RECORDS SUMMARY | 2022-08-05 10:11 | XMS_ITS | Encounter Summary ---
:1960 Author Organization [facility] Address [address] [place] [address] Care Team Providers Name Role Phone Cintia Cobb M.D. Primary Care Provider [phone] Encounter Details Date Type Department Care Team Description 09/05/2020 Clinical Communication Department of Kacie Huerta, Orthopedic Surgery in [facility] C.N.PMoos[place], [place] D.N.P. [address] [phone] Social History Tobacco Use Types Packs/Day Years Used Date Smoking Tobacco: Never Smokeless Tobacco: Never Alcohol Use Standard Drinks/Week Comments No 0 (1 standard drink = 0.6 oz pure alcoho l) Sex Assigned at Date Recorded Not on file documented as of this encounter Miscellaneous Notes Telephone Encounter - Suzie Quan R.N. - 09/05/2020 3:04 PM HUMAN RESOURCES RECORDS CLERK Spoke with Magali, patients . She will call at her convenience to schedule an appointment with Kacie to review Ed's CT scans. N RESOURCES RECORDS CLERK Telephone Encounter - Suzie Quan R.N. - 09/05/2020 3:03 PM HUMAN RESOURCES RECORDS CLERK ----- Message from Kacie Huerta APRN, C.NPiliPPili, D.N.P. sent at 09/05/2020 10:11 AM HUMAN RESOURCES RECORDS CLERK ----- Can we schedule a follow up to review CT scans? No hurry. Thanks N RESOURCES RECORDS CLERK documented in this encounter Plan of Treatment Not on filedocumented as of this encounter Visit Diagnoses Not on filedocumented in this encounter Additional Health Concerns Assessment Noted Time PHQ-9 Depression Total Score: 18 02/14/2013 9:53 AM CD T documented as of this encounter Care Teams Screen Writer Relationship Specialty Start Date End Date Cintia Cobb M.D. PCP - General 02/19/17 02/20/[address] [place] [phone] documented as of this encounter
--- OUTSIDE RECORDS SUMMARY | 2022-08-05 10:11 | XMS_ITS | Encounter Summary ---
:1960 Author Organization [facility] Address [address] [place] [address] Care Team Providers Name Role Phone Cintia Cobb M.D. Primary Care Provider [phone] Encounter Details Date Type Department Care Team Description 12/18/2020 Hospital Encounter Department of [place] Diabetes Mellitus Laboratory Medicine Cintia Copeland Type 2 With Diabetic in Feliz Arellano M.D. Neuropathy ([facility]) [address] [place] [phone] Social History Tobacco Use Types Packs/Day [...] documented as of this encounter Care Teams Java Engineer Relationship Specialty Start Date End Date Cintia Cobb M.D. PCP - General 02/19/17 02/20/[address] [phone] documented as of this encounter
--- OUTSIDE RECORDS SUMMARY | 2022-08-05 10:11 | XMS_ITS | Encounter Summary ---
:1960 Author Organization [facility] Address [address] [place] [address] Care Team Providers Name Role Phone Cintia Cobb M.D. Primary Care Provider [phone] Reason for Referral Outpatient (Routine) - Closed Specialty Diagnoses / Procedures Referred By Contact Refer red To Contact Diagnoses Pain Low Back Chronic Spondylosis Lumbar Without Myelopathy Radiculopathy Lumbar Christian Gonzalez II, M.D. 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 External, Referring [address] [place] [address] Referral ID Status Reason Start Date Expiration Visits Visits Date Requested Authorized [id number] Closed Continuity of 12/04/2020 12/04/2021 1 1 Care Outpatient (Routine) - Closed Specialty Diagnoses / Procedures Referred By Contact Refer red To Contact Diagnoses Pain Low Back Chronic Spondylosis Lumbar Without Myelopathy Radiculopathy Lumbar Christian Gonzalez II, M.D. External, Referring [address] [place] [address] Referral ID Status Reason Start Date Expiration Visits Visits Date Requested Authorized [id number] Closed Continuity of 12/04/2020 12/04/2021 1 1 Care Encounter Details Date Type Department Care Team Description 12/04/2020 Orders Only Department of Pain Estrella Mark, Pain Low Back Chronic (Primary Dx); [place] in [place] Spondylosis Lumbar Without Myelopathy; [place] [phone] Radiculopathy Lumbar [address] [facility] (Work) [place] [address] Social History Tobacco Use Types [...] documented as of this encounter Care Teams Rail Maintenance Worker Relationship Specialty Start Date End Date Cintia Cobb M.D. PCP - General 02/19/17 02/20/[address] [phone] documented as of this encounter
--- OUTSIDE RECORDS SUMMARY | 2022-08-05 10:11 | XMS_ITS | Encounter Summary ---
:1960 Author Organization [facility] Address [address] [place] [address] Care Team Providers Name Role Phone Cintia Cobb M.D. Primary Care Provider [phone] Encounter Details Date Type Department Care Team Description 12/25/2020 Hospital Encounter Department of Abhay Elizondo Admini strative Purpose Laboratory Medicine MLinda, Ph.D. Exam in [address] [address] [place], [place] [phone] (Work) [phone] Social History Tobacco Use Types Packs/Day Years [...] documented as of this encounter Care Teams Embryology Professor Relationship Specialty Start Date End Date Cintia Cobb M.D. PCP - General 02/19/17 02/20/[address] [address] documented as of this encounter
--- OUTSIDE RECORDS SUMMARY | 2022-08-05 10:11 | XMS_ITS | Encounter Summary ---
:1960 Author Organization [facility] Address [address] [place] [address] Care Team Providers Name Role Phone Cintia Cobb M.D. Primary Care Provider [phone] Reason for Visit Reason Comments Back Surgery questions Encounter Details Date Type Department Care Team Description 12/25/2020 Clinical Department of [place] [facility] Communication Family Medicine, Cintia Copeland Jose Daniel Piper M.D. Clinic, in [address] [address] [place], [place] [phone] (Work) [phone] Social History Tobacco Use Types Packs/Day Years [...] as of this encounter Care Teams Asphalt Distributor Tender Relationship Specialty Start Date End Date Cintia Cobb M.D. PCP - General 02/19/17 02/20/[address] [phone] documented as of this encounter
--- OUTSIDE RECORDS SUMMARY | 2022-08-05 10:11 | XMS_ITS | Encounter Summary ---
:1960 Author Organization [facility] Address [address] [place] [address] Care Team Providers Name Role Phone Cintia Cobb M.D. Primary Care Provider [phone] Reason for Referral Outpatient (Routine) - Closed Specialty Diagnoses / Procedures Referred By Contact Refer red To Contact Pain Medicine Diagnoses Spondylitis (HCC) Kacie Huerta APRN, [facility] C.N.P., D.N.P. [address] [place] [address] Referral ID Status Reason Start Date Expiration Date Visits V isits Requested Authorized [id number] Closed Specialty 10/30/2020 10/30/2021 1 1 Services Required utpatient (Routine) - Closed Specialty Diagnoses / Procedures Referred By Contact Refer red To Contact Diagnoses Primary Osteoarthritis Knee Left Kacie Huerta APRN, [facility] Procedures avr-dapu-jrovuvak-elbow arthrocentesis: L knee joint C.N.P., D.N.P. [address] [place] [address] Referral ID Status Reason Start Date Expiration Date Visits Requ ested Visits Authorized [id number] Closed 10/30/2020 10/30/2021 1 1 STRIPPER Reason for Visit Reason Comments Follow-up CT Results Pain Outpatient (Routine) - Closed Specialty Diagnoses / Procedures Referred By Contact Refer red To Contact Orthopedic Surgery Kacie Huerta, HAKEEM, [facility] [place], FidelN.PPili [address] [place] [phone] Referral ID Status Reason Start Date Expiration Date Visits Requ ested Visits Authorized [id number] Closed 08/22/2020 08/22/2021 1 1 Encounter Details Date Type Department Care Team Description 10/30/2020 Office Visit Department of Kacie Huerta, Primary Ost eoarthritis Knee Left (Primary Dx); Orthopedic Surgery in [place], Spond ylitis ([facility]) Jose Daniel Dean D.N.P. [address] [phone] Social History Tobacco Use Types Packs/Day [...] not be able to do this in [place]. In regard to his knee I did [...] agrees with this plan. Questions were answered STRIPPER documented in this encounter Procedure Notes Loly Betts L.P.N. - 10/30/2020 8:00 AM CSTAssociated Order(s): wxk-zxyi-jddodqlu-elbow arthrocentesis: L knee joint Post-Procedure Diagnose(s): Primary [...] dressing care and follow-up with ordering provider STRIPPER documented in this encounter Plan of Treatment Scheduled Referrals Name Type Priority Associated Diagnoses Order S chedule Pain Medicine - Outpatient Referral Routine Spondylitis (HCC) Expected: General consult 10/30/2020 (clinic) (Approximate), Expires: 10/30/2023 documented as of this encounter Procedures Procedure Name Priority Date/Time Associated Diagnosis Comme nts OR ARTHCS ASP/INJ Routine 10/30/2020 8:00 AM Primary Osteoarth ritis Results for this MJR JT WO US CORE STRIPPER Knee Left procedure are i n the results section. documented in this encounter Results OR ARTHCS ASP/INJ MJR JT WO US (10/30/2020 8:00 AM CORE STRIPPER) Narrative MMODAL - 10/30/2020 8:00 AM CORE STRIPPER Loly Betts L.P.N. ? 10/31/2020 ??3:30 AM [...] injection 60 mg Given 10/30/2020 8:00 AM CORE STRIPPER 60 mg (KENALOG-40) 60 mg, intra-articular, One-Time Injection, Starting on Thu10/30/20 at 0800, For 1 dose documented in this encounter Additional Health Concerns Assessment Noted Time PHQ-9 Depression Total Score: 18 02/14/2013 9:53 AM CD T documented as of this encounter Care Teams Cyanide Case Hardener Relationship Specialty Start Date End Date Cintia Cobb M.D. PCP - General 02/19/17 02/20/[address] [phone] documented as of this encounter
--- OUTSIDE RECORDS SUMMARY | 2022-08-05 10:11 | XMS_ITS | Encounter Summary ---
:1960 Author Organization [facility] Address [address] [place] [address] Care Team Providers Name Role Phone Cintia Cobb M.D. Primary Care Provider [phone] Reason for Referral MRI/CAT/PET Scan (Routine) - Closed Specialty Diagnoses / Procedures Referred By Contact Refer red To Contact Radiology Diagnoses Pain Hip Left Kacie Huerta APRN, [facility] Procedures CT Hip Left without IV Contrast C.N.P., D.N.P. [address] [place] [address] Referral ID Status Reason Start Date Expiration Date Visits Requ ested Visits Authorized [id number] Closed 08/22/2020 08/22/2021 1 1 WINDOW AND DOOR CRAFTSMAN Reason for Visit MRI/CAT/PET Scan (Routine) - Closed Specialty Diagnoses / Procedures Referred By Contact Refer red To Contact Radiology Diagnoses Pain Hip Left Kacie Huerta APRN, [facility] [place] [facility] Procedures CT Hip Left without IV Contrast C.N.P., D.N.P. [address] [place] [address] Referral ID Status Reason Start Date Expiration Date Visits Requ ested Visits Authorized [id number] Closed 08/22/2020 08/22/2021 1 1 Encounter Details Date Type Department Care Team Description 08/30/2020 Hospital Encounter Department of Radiology Albert Huertaeric devon Oakes, Pain Hip Left in [place], HAKEEM, C.N.P., [place] D.N.P. [address] [place] [phone] Social History Tobacco Use Types Packs/Day [...] r this WITHOUT IV (most inpatients PM WOOD WINDOW AND DOOR CRAFTSMAN procedure a re in CONTRAST and all the results outpatients) section. documented in this encounter Results CT Hip Left without IV Contrast (08/30/2020 1:21 PM WOOD WINDOW AND DOOR CRAFTSMAN) Anatomical Region Laterality Modality Lower Extremity, Hip, Musculoskeletal RST LOS, Left Computed Tomography Musculoskeletal ARZ LOS, Muskuloskeletal FLA LOS Specimen (Source) Anatomical Collection Method Collection Time Re ceived Time Location / / Volume Laterality 08/30/2020 1:33 PM WOOD WINDOW AND DOOR CRAFTSMAN Impressions 08/30/2020 1:38 PM WOOD WINDOW AND DOOR CRAFTSMAN Intramedullary ovidio and screw fixation across a healed intertrochanteric fracture of the left f emur; hardware appears well seated by CT. Mild left hip joint effusion and/or synovitis. Narrative 08/30/2020 1:38 PM WOOD WINDOW AND DOOR CRAFTSMAN EXAM: CT HIP LEFT WITHOUT IV CONTRAST [...] documented as of this encounter Care Teams Lightning Protection Installer Relationship Specialty Start Date End Date Cintia Cobb M.D. PCP - General 02/19/17 02/20/[address] [place] [phone] documented as of this encounter
--- OUTSIDE RECORDS SUMMARY | 2022-08-05 10:11 | XMS_ITS | Encounter Summary ---
:[address] [facility] Address [address] [place] [address] Care Team Providers Name Role Phone Cintia Cobb M.D. Primary Care Provider [phone] Encounter Details Date Type Department Care Team Description 10/15/2020 Clinical Communication Department of Kacie Huerta, Orthopedic Surgery in [facility] [place] D.N.P. [address] [place] [phone] Social History Tobacco Use Types Packs/Day Years [...] documented as of this encounter Care Teams Supply Chain Technician Relationship Specialty Start Date End Date Cintia Cobb M.D. PCP - General 02/19/17 02/20/[address] [place] [phone] documented as of this encounter
--- OUTSIDE RECORDS SUMMARY | 2022-08-05 10:11 | XMS_ITS | Encounter Summary ---
:1960 Author Organization [facility] Address [address] [place] [address] Care Team Providers Name Role Phone Cintia Cobb M.D. Primary Care Provider Encounter Details Date Type Department Care Team Description 11/07/2020 Orders Only [facility] PCP [facility] Priyanka Cobb Mellitus Type DREWT Cintia Piper M.D. 2 With Diabetic [address] [address] Neuropathy ( HCC) [place] [phone] (Wo rk) Social History Tobacco [...] documented as of this encounter Care Teams Electrical Inspector Relationship Specialty Start Date End Date Cintia Cobb M.D. PCP - General 02/19/17 02/20/22 [address] [facility] [address] [place] [phone] documented as of this encounter
--- OUTSIDE RECORDS SUMMARY | 2022-08-05 10:11 | XMS_ITS | Encounter Summary ---
:1960 Author Organization [facility] Address [address] [place] [address] Care Team Providers Name Role Phone Cintia Cobb M.D. Primary Care Provider [phone] Reason for Visit Reason Comments Follow-up Medication request Encounter Details Date Type Department Care Team Description 01/30/2021 Clinical Communication Department of Pain Star Mark Follow-up Medicine in [place] R.N. ([place], [place] [phone] request) [address] [facility] (Work) [place] [address] Social History Tobacco Use Types [...] name and he states he has a [place] friend [place] [facility] with similar back problems that was going [...] Ihave a wet back friend [place] [facility] with similar back problems who was given [...] documented as of this encounter Care Teams Prosthodontist/Educator Relationship Specialty Start Date End Date Cintia Cobb M.D. PCP - General 02/19/17 02/20/[address] [place] [phone] documented as of this encounter
--- OUTSIDE RECORDS SUMMARY | 2022-08-05 10:11 | XMS_ITS | Encounter Summary ---
:1960 Author Organization [facility] Address [address] [place] [address] Care Team Providers Name Role Phone Cintia Cobb M.D. Primary Care Provider Encounter Details Date Type Department Care Team Description 02/05/2021 Orders Only [facility] SEMN PCP [facility] Priyanka Cobb Mellitus Type DREWT iCntia Piper M.D. 2 With Diabetic [address] [address] Neuropathy ( HCC) [place] [phone] (Wo rk) Social History Tobacco [...] documented as of this encounter Care Teams Roof Designer Relationship Specialty Start Date End Date Cintia Cobb M.D. PCP - General 02/19/17 02/20/22 [address] [facility] [address] [place] [phone] documented as of this encounter
--- OUTSIDE RECORDS SUMMARY | 2022-08-05 10:11 | XMS_ITS | Encounter Summary ---
:1960 Author Organization [facility] Address [address] [place] [address] Care Team Providers Name Role Phone Cintia Cobb M.D. Primary Care Provider [phone] Reason for Visit Reason Comments Shoulder Pain Pt presents to ED with left shoulder pain. Pt reports a branch hit his shoulder when mowing lawn 08/27. Encounter Details Date Type Department Care Team Description 02/18/2021 Emergency [place] Alexey Patel, Pain Shoulder Left Department P.A.-C. (Primary Dx) [address] [address] [place], [place] [phone] Social History Tobacco Use Types Packs/Day [...] be sent through Care Everywhere. Shoulder Pain (Senegalese)documented in this encounter Medications at Time of [...] as of this encounter Care Teams Service Captain Relationship Specialty Start Date End Date Cintia Cobb M.D. PCP - General 02/19/17 02/20/[address] [place] [phone] documented as of this encounter
--- OUTSIDE RECORDS SUMMARY | 2022-08-05 10:11 | XMS_ITS | Encounter Summary ---
:1960 Author Organization [facility] Address [address] [place] [address] Care Team Providers Name Role Phone Cintia Cobb M.D. Primary Care Provider [phone] Encounter Details Date Type Department Care Team Description 12/18/2020 Hospital Encounter Department of [place] Anemia; Laboratory Cintia Copeland Gastric Bypa ss Status Post; Medicine in Jose Daniel Piper M.D. Anemia Microcytic; [address] [address] Hypertension Essential Prima ry; [address] [place] [address] Blvd Diabetes Mellitus Type 2 With Diabetic N europathy (HCC); BLVD [place], [place] [phone] Social History Tobacco Use Types Packs/Day [...] Organization Address City/State/ZIP Code Phon e Number [facility]- [address] [place], [place] [address] [address] [facility] [place] [address] System in [place] [address] Lipid Panel (12/18/2020 7:49 [...] M.D. LAB BLOOD ADD-ON Performing Organization Address City/State/[facility] Code Phon e Number [phone] [place] [address] [place] [address] System in [address] (ABNORMAL) Basic Metabolic Panel (12/18/2020 7:49 [...] CDT eGFR-Black/Afri >90 >=60 12/18/2020 CNFL can Argentine mL/min/BSA 8:31 PM CDT Comment: ----ADDITIONAL INFORMATION---- [...] Organization Address City/State/ZIP Code Phon e Number [facility]- [address] [place] [phone] [place] [address] [place] [address] (ABNORMAL) Vitamin B12 Assay (12/18/2020 7:49 [...] M.D. LAB BLOOD ADD-ON Performing Organization Address City/[facility] Phon e Number [facility]- [address] [place] [address] [phone] [facility] [place] [address] System [address] (ABNORMAL) CBC without Differential (12/18/2020 7:48 PM CDT) [facility] gist Method Time Signature Hemoglobin 8.0 [...] Organization Address City/State/ZIP Code Phon e Number [facility]- [address] [place] [address] [place] [address] [place] [address] System [address] Hemoglobin A1c (12/18/2020 7:48 PM CDT) athologist Signature Hemoglobin A1c, 5.3 4.2 - 5.6 12/18/2020 CNFL B % 8:33 PM CDT Specimen Anatomical Collection Method Collection Time Receive d Time (Source) Location / / Volume Laterality Blood (Blood, 12/18/2020 7:48 PM 12/19/19 8:07 Venous) CDT PM CDT Cintia Copeland M.D. LAB BLOOD ADD-ON Performing Organization Address City/[facility]/ZIP Code Phon e Number [address] [address] [place] [address] System [address] [address] 25-Hydroxyvitamin D2 and D3 (12/18/2020 7:48 [...] and its performa nce characteristics determined by [facility] in a manner consistent with CLIA requirements. [...] CLINIC [address] [place], [place] [address] SUPPORT CENTER [facility] [place] [address] Laboratory Medicine and Pathology [address] [...] documented as of this encounter Care Teams Security Systems Manager Relationship Specialty Start Date End Date Cintia Cobb M.D. PCP - General 02/19/17 02/20/[address] [place] [phone] documented as of this encounter
--- OUTSIDE RECORDS SUMMARY | 2022-08-05 10:11 | XMS_ITS | Encounter Summary ---
:[address] [facility] Address [address] [place] [address] Care Team Providers Name Role Phone Cintia Cobb M.D. Primary Care Provider [phone] Reason for Visit Reason Comments Paper Work Referrals Outside of [place] Encounter Details Date Type Department Care Team Description 12/04/2020 Clinical Communication Department of Christian Mcduffie Paper Work Medicine in [place] RA[place] M.D. (Referrals Outside [place], [place] [address] [facility]) [address] [place] [phone] Social History Tobacco Use Types Packs/Day Years [...] referrals requested as well ( email sent Frieda Monreal) Patient has not decided if he will go to [facility] in [place] or to [facility] in [place]. documented in this encounter Plan of Treatment Not on filedocumented as of this encounter Visit Diagnoses Not on filedocumented in this encounter Additional Health Concerns Assessment Noted Time PHQ-9 Depression Total Score: 18 02/14/2013 9:53 AM CD T documented as of this encounter Care Teams Marshmallow Runner Relationship Specialty Start Date End Date Cintia Cobb M.D. PCP - General 02/19/17 02/20/[address] [phone] documented as of this encounter
--- OUTSIDE RECORDS SUMMARY | 2022-08-05 10:11 | XMS_ITS | Encounter Summary ---
:1960 Author Organization [facility] Address [address] [place] [address] Care Team Providers Name Role Phone Cintia Bullock M.D. Primary Care Provider [phone] Reason for Referral Outpatient (Routine) - Closed Specialty Diagnoses / Procedures Referred By Contact Refer red To Contact Pain Medicine Diagnoses Pain Low Back Unspecified Cintia Bullock DREW Piper M.D. [address] [place] [phone] Referral ID Status Reason Start Date Expiration Date Visits V isits Requested Authorized [id number] Closed Specialty 02/18/2021 02/18/2022 1 1 Services Required Reason for Visit Reason Comments Medical Information Encounter Details Date Type Department Care Team Description 02/05/2021 Nurse [facility] mar[facility] c Information Medicine, [place] David Dooley [facility], in [place] [address] [place] [address] [address] [place] [phone] Social History Tobacco Use Types [...] appointment with his spine surgeon in the [facility]. If he does not, he should [...] take the pressure off the nerves to [facility] [place]. Call disconnected and unable to reach in callback. Message sent to primary as requested. documented in this encounter Plan of Treatment Scheduled Referrals Name Type Priority Associated Diagnoses Order S [facility] Pain Medicine - Outpatient Referral Routine Pain Low Back Expe cted: General consult 02/19/2021, (clinic) Expires: 02/19/2024 documented as of this encounter Visit Diagnoses Diagnosis Pain Low Back Unspecified - Primary documented in this encounter Additional Health Concerns Assessment Noted Time PHQ-9 Depression Total Score: 18 02/14/2013 9:53 AM CD T documented as of this encounter Care Teams Topper Press Operator Relationship Specialty Start Date End Date Cintia Bullock M.D. PCP - General 02/19/17 02/20/[address] [place] [phone] documented as of this encounter
--- OUTSIDE RECORDS SUMMARY | 2022-08-05 10:11 | XMS_ITS | Encounter Summary ---
:[address] [facility] Address [address] [place] [address] Care Team Providers Name Role Phone Cintia Cobb M.D. Primary Care Provider [phone] Reason for Visit Reason Comments Pain Medicine Intake - Return Patient Patient here for consult, c/o low back pain Visit with radiating pain down lef t leg to the foot. [facility] had back sugery in 1988. No known injury. Outpatient (Routine) - Closed Specialty Diagnoses / Procedures Referred By Contact Refer red To Contact Pain Medicine Diagnoses Spondylitis (HCC) Kacie Huerta APRN, [facility] C.N.P., D.N.P. [address] [place] [phone] Referral ID Status Reason Start Date Expiration Date Visits V isits Requested Authorized [id number] Closed Specialty 10/30/2020 10/30/2021 1 1 Services Required Encounter Details Date Type Department Care Team Description 12/03/2020 Comprehensive Visit Department of Pain Christian Gonzalez Low Back Chronic (Primary Dx); Medicine in [facility] Keely RAZO Spondylitis (HCC); [place], [place] [address] [facility] Spondylosis Lumbar Without Myelopathy; [address] [place], [place] [phone] Social History Tobacco Use Types Packs/Day [...] 12/03/2020 8:00 AM CDT REQUESTING PROVIDER: Kacie Hureta APRN C.N.P., D.N.P. HISTORY OF PRESENT ILLNESS: [...] He is unable to undergo evaluation in [place] by report. He states that there were some inappropriate behavior, which resulted in termination from that campus. He has been up to [facility] in the [facility]. He has undergone evaluations of musculoskeletal issues as well as his low back. He was previously referred to [facility]. He underwent an epidural injection, which gave [...] like to consider some options in the [facility]. We offered to make a referral if [...] spent a total of 53 minutes in uvo-anjj-xa-face time performing a review of the record [...] documented as of this encounter Care Teams Photo Finisher Relationship Specialty Start Date End Date Cintia Cobb M.D. PCP - General 02/19/17 02/20/[address] [place] [phone] documented as of this encounter
--- OUTSIDE RECORDS SUMMARY | 2022-08-05 10:11 | XMS_ITS | Encounter Summary ---
:1960 Author Organization [facility] Address [address] [place] [address] Care Team Providers Name Role Phone Cintia Cobb M.D. Primary Care Provider [phone] Reason for Visit Reason Comments Follow-up Triage note 02/05 Encounter Details Date Type Department Care Team Description 02/11/2021 Clinical Department of [place] Follow-up ([facility] Communication Family Medicine, Cintia Copeland note 02/05) Jose Daniel Piper M.D. Clinic, in [address] [address] [place], [place] [phone] (Work) [phone] Social History Tobacco Use Types Packs/Day Years [...] appointment with his spine surgeon in the [facility]. If he does not, he [...] documented as of this encounter Care Teams Street Sweeper Operator Relationship Specialty Start Date End Date Cintia Cobb M.D. PCP - General 02/19/17 02/20/[address] [phone] documented as of this encounter
--- OUTSIDE RECORDS SUMMARY | 2022-08-05 10:11 | XMS_ITS | Encounter Summary ---
:1960 Author Organization [facility] Address [address] [place] [address] Care Team Providers Name Role Phone Cintia Cobb M.D. Primary Care Provider [phone] Reason for Visit Reason Comments Med Refill Encounter Details Date Type Department Care Team Description 09/20/2020 Refill Department of Infusion Cintia Cobb Med Refill Therapy in Feliz Arellano M.D. [address] [phone] (Wo rk) Social History Tobacco Use Types [...] documented as of this encounter Care Teams Commissary Steward Relationship Specialty Start Date End Date Cintia Cobb M.D. PCP - General 02/19/17 02/20/[address] [place] [phone] documented as of this encounter
--- OUTSIDE RECORDS SUMMARY | 2022-08-05 10:11 | XMS_ITS | Encounter Summary ---
:1960 Author Organization [facility] Address [address] [place] [address] Care Team Providers Name Role Phone Cintia Cobb M.D. Primary Care Provider [phone] Encounter Details Date Type Department Care Team Description 11/09/2020 Clinical Communication Department of Kacie Huerta, Orthopedic Surgery in [facility] [place], [place] D.N.P. [address] [phone] Social History Tobacco Use Types Packs/Day Years Used Date Smoking Tobacco: Never Smokeless Tobacco: Never Alcohol Use Standard Drinks/Week Comments No 0 (1 standard drink = 0.6 oz pure alcoho l) Sex Assigned at Date Recorded Not on file documented as of this encounter Miscellaneous Notes Telephone Encounter - Maricel Aleman R.N. - 11/13/2020 4:55 PM CUSTOMER DEVELOPMENT REPRESENTATIVE Left another message on patient's phone to update his plan of care. OMER DEVELOPMENT REPRESENTATIVE Telephone Encounter - Maricel Aleman R.N. - 11/12/2020 11:26 AM CUSTOMER DEVELOPMENT REPRESENTATIVE LM for patient to callback on mobile number. OMER DEVELOPMENT REPRESENTATIVE Telephone Encounter - Emelia Mujica L.P.N. - 11/09/2020 12:55 PM CUSTOMER DEVELOPMENT REPRESENTATIVE Attempt to contact patient his phone is currently not taking call. OMER DEVELOPMENT REPRESENTATIVE Telephone Encounter - Aleksandra Garcia L.P.N. - 11/09/2020 12:38 PM CUSTOMER DEVELOPMENT REPRESENTATIVE Per Kacie- she would like to wait and see for the next couple weeks and see if this changes since gordyid find some relief. If the pain is still the same in 2 more weeks, she would like to order a CT of his knee. OMER DEVELOPMENT REPRESENTATIVE Telephone Encounter - Emelia Mujica L.P.N. - 11/09/2020 11:29 AM CUSTOMER DEVELOPMENT REPRESENTATIVE Patient called with update on Left knee cortisone injection 10/30/20. He reports that it took away some of the pain but is wrapping machine tender to touch on the left inside of knee. He does not wish to proceed with Pt he does have a pace maker so is unsure of option of a MRI. Please advise on next steps in plane of care. OMER DEVELOPMENT REPRESENTATIVE documented in this encounter Plan of Treatment Not on filedocumented as of this encounter Visit Diagnoses Not on filedocumented in this encounter Additional Health Concerns Assessment Noted Time PHQ-9 Depression Total Score: 18 02/14/2013 9:53 AM CD T documented as of this encounter Care Teams Warhead Maintenance Specialist Relationship Specialty Start Date End Date Cintia Cobb M.D. PCP - General 02/19/17 02/20/[address] [place] [phone] documented as of this encounter
--- OUTSIDE RECORDS SUMMARY | 2022-08-05 10:11 | XMS_ITS | Encounter Summary ---
:1960 Author Organization [facility] Address [address] [place] [address] Care Team Providers Name Role Phone Cintia Cobb M.D. Primary Care Provider [phone] Reason for Referral Outpatient (Routine) - Closed Specialty Diagnoses / Procedures Referred By Contact Refer red To Contact Orthopedic Surgery Kacie Huerta APRN, [facility] C.N.P., D.N.P. [address] [place] [phone] Referral ID Status Reason Start Date Expiration Date Visits Requ ested Visits Authorized [id number] Closed 08/22/2020 08/22/2021 1 1 RI/CAT/PET Scan (Routine) - Closed Specialty Diagnoses / Procedures Referred By Contact Refer red To Contact Radiology Diagnoses Pain Low Back Unspecified Kacie Huerta APRN, [facility] Procedures CT Lumbar Spine without IV Contrast C.N.P., D.N.P. [address] [place] [phone] Referral ID Status Reason Start Date Expiration Date Visits Requ ested Visits Authorized [id number] Closed 08/22/2020 08/22/2021 1 1 RI/CAT/PET Scan (Routine) - Closed Specialty Diagnoses / Procedures Referred By Contact Refer red To Contact Radiology Diagnoses Pain Hip Left Kacie Huerta APRN, [facility] Region Procedures CT Hip Left without IV Contrast C.N.P., D.N.P. [address] [place] [address] Referral ID Status Reason Start Date Expiration Date Visits Requ ested Visits Authorized [id number] Closed 08/22/2020 08/22/2021 1 1 TAL CUTTER Reason for Visit Reason Comments Injections Encounter Details Date Type Department Care Team Description 08/22/2020 Clinical Communication Department of Kacie Huerta I njections Orthopedic Surgery in [place], [place] D.N.P. 701 [facility] [address] [place] [phone] Social History Tobacco Use Types Packs/Day Years Used Date Smoking Tobacco: Never Smokeless Tobacco: Never Alcohol Use Standard Drinks/Week Comments No 0 (1 standard drink = 0.6 oz pure alcoho l) Sex Assigned at Date Recorded Not on file documented as of this encounter Miscellaneous Notes Telephone Encounter - Xochitl Edge R.N. - 08/24/2020 11:51 AM CRYSTAL CUTTER Patient is scheduled for the CT scans on 08/30/20. TAL CUTTER Telephone Encounter - Mehreen Coleman APRN, C.NEricka, D.N.P. - 08/24/2020 11:15 AM CST Lumbar and hip CT are ordered. Please have his schedule this when he is able. Following imaging, he can schedule with us to discuss results and next steps. If there are back issues seen on CT, he can follow up with whoever he wants. Thanks. TAL CUTTER Telephone Encounter - Xochitl Edge R.N. - 08/24/2020 10:32 AM CRYSTAL CUTTER TC from patient calling to schedule CT [...] with his back, he will return to [facility] for spine care and will not see Dr. Gonzalez. Consult for Dr. Gonzalez has been cancelled per his request and his call was transferred to the scheduling team. TAL CUTTER Telephone Encounter - Aleksandra Garcia L.P.N. - 08/22/2020 11:40 AM CRYSTAL CUTTER Called patient's per his request and informed her of Kacie's message below. Ed does not accept incoming calls from [employer] on his phone. His will relay the message to call the scheduling line and set up 2 CT scans, an appointment with Kacie and wait to be called regarding the appointment with Dr. Gonzalez TAL CUTTER Telephone Encounter - Aleksandra Garcia L.P.N. - 08/22/2020 9:49 AM CRYSTAL CUTTER Patient called today with results of his [...] and get back to himhow to proceed. TAL CUTTER documented in this encounter Plan of Treatment Scheduled Referrals Name Type Priority Associated Order Schedule Diagnoses Orthopedic Surgery Outpatient Referral Routine Ex pected: office visit 08/22/2020 (clinic) (Approximate), Expires: 08/22/2023 documented as of this encounter Results CT Hip Left without IV Contrast (08/30/2020 1:21 PM CRYSTAL CUTTER) Anatomical Region Laterality Modality Lower Extremity, Hip, Musculoskeletal RST LOS, Left Computed Tomography Musculoskeletal ARZ LOS, Muskuloskeletal FLA LOS Specimen (Source) Anatomical Collection Method Collection Time Re ceived Time Location / / Volume Laterality 08/30/2020 1:33 PM CRYSTAL CUTTER Impressions 08/30/2020 1:38 PM CRYSTAL CUTTER Intramedullary ovidio and screw fixation across a healed intertrochanteric fracture of the left f emur; hardware appears well seated by CT. Mild left hip joint effusion and/or synovitis. Narrative 08/30/2020 1:38 PM CRYSTAL CUTTER EXAM: CT HIP LEFT WITHOUT IV CONTRAST [...] Spine without IV Contrast (08/30/2020 1:14 PM CRYSTAL CUTTER) Anatomical Region Laterality Modality Lumbar Spine, Neuroradiology RST LOS, Neuroradiology N/A Computed Tomography ARZ LOS, Neuroradiology FLA LOS Specimen (Source) Anatomical Collection Method Collection Time Re ceived Time Location / / Volume Laterality 08/30/2020 1:24 PM CRYSTAL CUTTER Impressions 08/30/2020 1:32 PM CRYSTAL CUTTER Spondylotic changes, as detailed level by level, includes moderate to severe spinal canal narrowing at L3-L 4 and moderate foraminal/extraforaminal narrowing on the left at L5-S1. Narrative 08/30/2020 1:32 PM CRYSTAL CUTTER EXAM: CT LUMBAR SPINE WITHOUT IV CONTRAST [...] documented as of this encounter Care Teams Reinforcing Steel Placer Relationship Specialty Start Date End Date Cintia Cobb M.D. PCP - General 02/19/17 02/20/[id number] [phone] documented as of this encounter
--- OUTSIDE RECORDS SUMMARY | 2022-08-05 10:11 | XMS_ITS | Encounter Summary ---
:1960 Author Organization [facility] Address [address] [place] [address] Care Team Providers Name Role Phone Cintia Cobb M.D. Primary Care Provider [phone] Encounter Details Date Type Department Care Team Description 10/09/2020 Orders Only Department of [facility] Angélica Cobb Medicine, Jose Daniel Piper M.D. Clinic, [address] [address] [place], [place] [phone] (W ork) [phone] Social History Tobacco Use Types Packs/Day Years [...] as of this encounter Care Teams Manager Technical Sales Relationship Specialty Start Date End Date Cintia Cobb M.D. PCP - General 02/19/17 02/20/[address] [place] [phone] documented as of this encounter
--- OUTSIDE RECORDS SUMMARY | 2022-08-05 10:11 | XMS_ITS | Encounter Summary ---
:1960 Author Organization [facility] Address [address] [place] [address] Care Team Providers Name Role Phone Cintia Cobb M.D. Primary Care Provider [phone] Encounter Details Date Type Department Care Team Description 08/07/2020 Hospital Encounter Department of Radiology Otf Huerta, Pain Hip Left in [facility], [place], [place] D.N.P. [address] [place] [phone] Social History Tobacco Use Types Packs/Day [...] s for this VIEWS (most inpatients AM ADULT EDUCATION MANAGER procedure a re in and all the results outpatients) section. documented in this encounter Results DX Hip Left 2-3 Views (08/07/2020 11:00 AM ADULT EDUCATION MANAGER) Anatomical Region Laterality Modality Lower Extremity, Hip, Musculoskeletal RST LOS, Left Digital Radiography Musculoskeletal ARZ LOS, Muskuloskeletal FLA LOS Specimen (Source) Anatomical Collection Method Collection Time Re ceived Time Location / / Volume Laterality 08/07/2020 11:28 AM ADULT EDUCATION MANAGER Impressions 08/07/2020 11:29 AM ADULT EDUCATION MANAGER Postoperative changes proximal left femoral intramedullary rodding screw fixation across the intertrochanteric fr acture. Hardware is intact. No evidence of acute osseous abnormality. Mild degen erative changes of the bilateral hips. Atherosclerotic vascular disease. March 092019 comparison. Narrative 08/07/2020 11:29 AM ADULT EDUCATION MANAGER EXAM: DX HIP LEFT 2-3 VIEWS Procedure [...] documented as of this encounter Care Teams Adjunct Art History Instructor Relationship Specialty Start Date End Date Cintia Cobb M.D. PCP - General 02/19/17 02/20/[address] [phone] documented as of this encounter
--- OUTSIDE RECORDS SUMMARY | 2022-08-05 10:11 | XMS_ITS | Encounter Summary ---
:1960 Author Organization [facility] Address [address] [place] [address] Care Team Providers Name Role Phone Cintia Cobb M.D. Primary Care Provider [phone] Reason for Visit Reason Comments D5 and Colon Screen Encounter Details Date Type Department Care Team Description 10/09/2020 Clinical Department of [place] D5 and Colon S creen Communication Family MedicineMin Megan [place] S, M.D. Clinic, in [address] [address] [place], [place] [phone] (Work) [phone] Social History Tobacco Use Types Packs/Day Years Used Date Smoking Tobacco: Never Smokeless Tobacco: Never Alcohol Use Standard Drinks/Week Comments No 0 (1 standard drink = 0.6 oz pure alcoho l) Sex Assigned at Date Recorded Not on file documented as of this encounter Miscellaneous Notes Telephone Encounter - Xochitl Hackett L.PPiliN. - 10/09/2020 7:48 AM EDGE ROLLER In reviewing the patient's diabetic quality metrics, [...] his D5 quality measures not met. (BR) ROLLER documented in this encounter Plan of Treatment Not on filedocumented as of this encounter Visit Diagnoses Not on filedocumented in this encounter Additional Health Concerns Assessment Noted Time PHQ-9 Depression Total Score: 18 02/14/2013 9:53 AM CD T documented as of this encounter Care Teams Bindery Cutter Operator Relationship Specialty Start Date End Date Cintia Cobb M.D. PCP - General 02/19/17 02/20/[address] [place] [phone] documented as of this encounter
--- OUTSIDE RECORDS SUMMARY | 2022-08-05 10:11 | XMS_ITS | Encounter Summary ---
:1960 Author Organization [facility] Address [address] [place] [address] Care Team Providers Name Role Phone Cintia Cobb M.D. Primary Care Provider [phone] Reason for Visit Reason Comments Referral Pain Med Referral Encounter Details Date Type Department Care Team Description 02/18/2021 Clinical Communication Department of Pain Star Mark Referral (Pain Med Medicine in [place], R.N. Referral) [place], [place] [phone] 700 [facility] (Work) [place] [address] Social History Tobacco Use Types [...] patient decided to seek care in the [facility]. Please review triage note from 02/05/21 and advise, thank you! documented in this encounter Plan of Treatment Not on filedocumented as of this encounter Visit Diagnoses Not on filedocumented in this encounter Additional Health Concerns Assessment Noted Time PHQ-9 Depression Total Score: 18 02/14/2013 9:53 AM CD T documented as of this encounter Care Teams Oracle Fusion Middleware Architect Relationship Specialty Start Date End Date Cintia Cobb M.D. PCP - General 02/19/17 02/20/[address] [phone] documented as of this encounter
--- OUTSIDE RECORDS SUMMARY | 2022-08-05 10:11 | XMS_ITS | Encounter Summary ---
:1960 Author Organization [facility] Address [address] [place] [address] Care Team Providers Name Role Phone Cintia Cobb M.D. Primary Care Provider [phone] Reason for Visit Outpatient (Routine) - Canceled Specialty Diagnoses / Procedures Referred By Contact Refer red To Contact Family Medicine Diagnoses Anemia Microcytic Hypertension Essential Primary Diabetes Mellitus Type 2 With Diabetic Neuropathy (HCC) Hyperlipidemia On Treatment Gastric Bypass Status Post MANNY Cobb [facility] Gianna Piper M.D. [address] [place] [phone] Referral ID Status Reason Start Date Expiration Date Visits V isits Requested Authorized [id number] Canceled 11/08/2019 11/07/2020 1 1 Encounter Details Date Type Department Care Team Description 12/18/2020 Office Visit Department of [facility] Terri Cobb Mellitus Type 2 With Diabetic Neuropathy (HCC) (Primary Dx); MedicineMerlyn M.D. Diabetes Mellitus Type 2 Peripheral Neur opathy (HCC); [facility], in [address] [place] [address] Gastric Bypass Status Post; Merlyn Dean [facility] Flutter Atrial (HCC); [facility] [place] Pacemaker Cardiac Status Pos t; [address] [place] [phone] Benign Prostatic Hyperplasia Without Obs truction; MERLYN DEAN [place] [phone] (W ork) Pain Low Back; [phone] Intertrigo; [phone] Anemia Iron Def iciency Social History Tobacco [...] Address City/State/ZIP Code Phon e Number [facility]- [address] [place], [place] [address] [address] [facility] [place] [address] System in [place] [address] documented in this encounter [...] documented as of this encounter Care Teams Dietetic Assistant Relationship Specialty Start Date End Date Cintia Cobb M.D. PCP - General 02/19/17 02/20/[address] [place] [phone] documented as of this encounter
--- OUTSIDE RECORDS SUMMARY | 2022-08-05 10:12 | XMS_ITS | Encounter Summary ---
:1960 Author Organization [facility] Address [address] [place] [address] Care Team Providers Name Role Phone Cintia Cobb M.D. Primary Care Provider [phone] Reason for Visit Physical Therapy (Routine) - Canceled Specialty Diagnoses / Procedures Referred By Contact Refer red To Contact Diagnoses Follow Up Examination Postoperative Visit Fracture Hip Intertrochanteric Closed Initial Left (HCC) Kacie Huerta APRN, [facility] Procedures PT Ongoing treatment C.N.P., D.N.P. [address] [place] [phone] Referral ID Status Reason Start Date Expiration Date Visits V isits Requested Authorized [id number] Canceled 10/13/2019 10/12/2020 99 99 Encounter Details Date Type Department Care Team Description 11/23/2019 Clinical Department of Kacie Huerta APRN, C.N.P., D.N.P. [address] [place] [phone] Follow Up Examination Postoperative Visi t; Support Rehabilitation Lesli Dias P.TPili [address] [place] [phone] Fracture Hip Intertrochanteric Closed In itial Left (HCC) Services in [address] [place] [address] Social History Tobacco Use Types Packs/Day Years [...] [facility] CARE / Plan: BCBS BLUE PLUS HMO / Product Type: Medicaid HMO / No data recorded Epic Visit Count: 11 Patient comments: patient has no new complaints. OBJECTIVE Pain: Patient does have soreness at times. Continues to note hip abductor weakness. However this is improving significantly. TREATMENT Treatment today consisted of: Perform the NantWorks-Fit Total body ergometer times 10 minutes at [...] Dias P.T. Department of Rehabilitation Services in [address] [address] Dept: [phone] documented in this encounter Plan of Treatment Not on filedocumented as of this encounter Visit Diagnoses Diagnosis Follow Up Examination Postoperative Visi t Fracture Hip Intertrochanteric Closed In itial Left (HCC) documented in this encounter Additional Health Concerns Assessment Noted Time PHQ-9 Depression Total Score: 18 02/14/2013 9:53 AM CD T documented as of this encounter Care Teams [employer] Relationship Specialty Start Date End Date Cintia Cobb M.D. PCP - General 02/19/17 02/20/[address] [place] [phone] documented as of this encounter
--- OUTSIDE RECORDS SUMMARY | 2022-08-05 10:12 | XMS_ITS | Encounter Summary ---
:1960 Author Organization [facility] Address [address] [place] [address] Care Team Providers Name Role Phone Cintia Cobb M.D. Primary Care Provider [phone] Encounter Details Date Type Department Care Team Description 04/06/2020 Hospital Encounter Department of Kacie Huerta, Pain Knee Left Radiology in [facility], [place], [place] D.N.P. [address] [place] [phone] Social History Tobacco Use Types Packs/Day [...] as of this encounter Care Teams Engine Room Helper Relationship Specialty Start Date End Date Cintia Cobb M.D. PCP - General 02/19/17 02/20/[phone] [place] [phone] documented as of this encounter
--- OUTSIDE RECORDS SUMMARY | 2022-08-05 10:12 | XMS_ITS | Encounter Summary ---
:1960 Author Organization [facility] Address [address] [place] [address] Care Team Providers Name Role Phone Cintia Cobb M.D. Primary Care Provider [phone] Encounter Details Date Type Department Care Team Description 04/12/2020 Orders Only Department of Kacie Huerta, Primary Ost eoarthritis Orthopedic Surgery in [facility], C.N.P., Lumba r Spine (Primary [place], [place] D.N.P. Dx) [address] [phone] Social History Tobacco Use Types Packs/Day Years [...] documented as of this encounter Care Teams Landscaping Manager Relationship Specialty Start Date End Date Cintia Cobb M.D. PCP - General 02/19/17 02/20/[phone] [place] [phone] documented as of this encounter
--- OUTSIDE RECORDS SUMMARY | 2022-08-05 10:12 | XMS_ITS | Encounter Summary ---
:1960 Author Organization [facility] Address [address] [place] [address] Care Team Providers Name Role Phone Cintia Cobb M.D. Primary Care Provider [phone] Reason for Visit Reason Comments Quality Metrics - Colon CA screen Encounter Details Date Type Department Care Team Description 02/07/2020 Clinical Department of [place] Quality Zoomy s - Communication Family Medicine, Cintia Copeland C A screen Jose Daniel Piper M.D. Clinic, in [address] [address] [place], [place] [phone] (Work) [phone] Social History Tobacco Use Types Packs/Day Years [...] documented as of this encounter Care Teams Core Machine Operator Relationship Specialty Start Date End Date Cintia Cobb M.D. PCP - General 02/19/17 02/20/[phone] [place] [phone] documented as of this encounter
--- OUTSIDE RECORDS SUMMARY | 2022-08-05 10:12 | XMS_ITS | Encounter Summary ---
:1960 Author Organization [facility] Address [address] [place] [address] Care Team Providers Name Role Phone Cintia Cobb M.D. Primary Care Provider [phone] Reason for Visit Reason Comments Appointment Encounter Details Date Type Department Care Team Description 11/29/2019 Clinical Communication Department of Kacie Huerta A ppointment Orthopedic Surgery in [facility] [place], [place] D.N.P. 701 [facility] [address] [place] [phone] Social History Tobacco Use Types Packs/Day Years [...] with Kacie Huerta DNP on 12/27/2019 in [place] has been changed to a phone consultation [...] documented as of this encounter Care Teams Interpreter Translator Relationship Specialty Start Date End Date Cintia Cobb M.D. PCP - General 02/19/17 02/20/[address] [place] [phone] documented as of this encounter
--- OUTSIDE RECORDS SUMMARY | 2022-08-05 10:12 | XMS_ITS | Encounter Summary ---
:1960 Author Organization [facility] Address [address] [place] [address] Care Team Providers Name Role Phone Cintia Cobb M.D. Primary Care Provider Reason for Visit Reason Comments PT Progress Note Encounter Details Date Type Department Care Team Description 01/13/2020 Clinical Department of [facility], PT Progress No te Communication Rehabilitation Lesli Oakes Services in [address], [address] [place] [phone] Social History Tobacco Use Types Packs/Day Years [...] documented as of this encounter Care Teams Vp Human Resources Relationship Specialty Start Date End Date Cintia Cobb M.D. PCP - General 02/19/17 02/20/[address] [place] [phone] documented as of this encounter
--- OUTSIDE RECORDS SUMMARY | 2022-08-05 10:12 | XMS_ITS | Encounter Summary ---
:1960 Author Organization [facility] Address [address] [place] [address] Care Team Providers Name Role Phone Cintia Cobb M.D. Primary Care Provider [phone] Reason for Visit Physical Therapy (Routine) - Canceled Specialty Diagnoses / Procedures Referred By Contact Refer red To Contact Diagnoses Follow Up Examination Postoperative Visit Fracture Hip Intertrochanteric Closed Initial Left (HCC) Kacie Huerta APRN, [facility] Procedures PT Ongoing treatment C.N.P., D.N.P. [address] [place] [address] Referral ID Status Reason Start Date Expiration Date Visits V isits Requested Authorized [id number] Canceled 10/13/2019 10/12/2020 99 99 Encounter Details Date Type Department Care Team Description 01/05/2020 Clinical Department of Kacie Huerta APRN, C.N.P., D.N.P. [address] [place] [phone] Follow Up Examination Postoperative Visi t; Support Rehabilitation Lesli Dias P.TPili [address] [place] [phone] Fracture Hip Intertrochanteric Closed In itial Left (HCC) Services in [address] [place] [address] Social History Tobacco Use Types Packs/Day Years [...] and treat Onset Date: 08/12/19 Payor: [facility] CARE / Plan: [facility] [employer] HMO / Product Type: Medicaid HMO / [...] Dias P.T. Department of Rehabilitation Services in [address] [address] Dept: [phone] documented in this encounter Plan of Treatment Not on filedocumented as of this encounter Visit Diagnoses Diagnosis Follow Up Examination Postoperative Visi t Fracture Hip Intertrochanteric Closed In itial Left (HCC) documented in this encounter Additional Health Concerns Assessment Noted Time PHQ-9 Depression Total Score: 18 02/14/2013 9:53 AM CD T documented as of this encounter Care Teams Moving Picture Operator Relationship Specialty Start Date End Date Cintia Cobb M.D. PCP - General 02/19/17 02/20/[address] [phone] documented as of this encounter
--- OUTSIDE RECORDS SUMMARY | 2022-08-05 10:12 | XMS_ITS | Encounter Summary ---
:1960 Author Organization [facility] Address [address] [place] [address] Care Team Providers Name Role Phone Cintia Cobb M.D. Primary Care Provider [phone] Reason for Visit Reason Comments PT Progress Note Encounter Details Date Type Department Care Team Description 12/01/2019 Clinical Department of [place], DVEANTE Progress No te Communication Rehabilitation Lesli Oakes Services in [address], [address] [place] [phone] Social History Tobacco Use Types Packs/Day Years [...] as of this encounter Care Teams Global Logistics Analyst Relationship Specialty Start Date End Date Cintia Cobb M.D. PCP - General 02/19/17 02/20/[address] [phone] documented as of this encounter
--- OUTSIDE RECORDS SUMMARY | 2022-08-05 10:12 | XMS_ITS | Encounter Summary ---
:1960 Author Organization [facility] Address [address] [place] [address] Care Team Providers Name Role Phone Cintia Cobb M.D. Primary Care Provider Reason for Visit Physical Therapy (Routine) - Closed Specialty Diagnoses / Procedures Referred By Contact Refer red To Contact Diagnoses Pain Shoulder Right [facility] Procedures PT Evaluate and treat Keely Piper [address] [place] [phone] Referral ID Status Reason Start Date Expiration Date Visits Requ ested Visits Authorized [id number] Closed 11/08/2019 11/07/2020 1 1 Encounter Details Date Type Department Care Team Description 01/25/2020 Comprehensive Visit Department of Song Cintia Jorgensen M.D. [address] [place] [phone] Pain Shoulder Rehabilitation Lesli Dias P.T. [address] [phone] Right Services in [address] [address] Social History Tobacco Use Types [...] eval and treat Onset Date: 08/12/19 Payor: [employer] [place] CARE / Plan: [employer] BLUE PLUS HMO / Product Type: Medicaid [...] Dias P.T. Department of Rehabilitation Services in [address] [address] Dept: [phone] documented in this encounter Plan of Treatment Not on filedocumented as of this encounter Visit Diagnoses Diagnosis Pain Shoulder Right documented in this encounter Additional Health Concerns Assessment Noted Time PHQ-9 Depression Total Score: 18 02/14/2013 9:53 AM CD T documented as of this encounter Care Teams News Camera Operator Relationship Specialty Start Date End Date Cintia Cobb M.D. PCP - General 02/19/17 02/20/[address] [place] [phone] documented as of this encounter
--- OUTSIDE RECORDS SUMMARY | 2022-08-05 10:12 | XMS_ITS | Encounter Summary ---
:1960 Author Organization [facility] Address [address] [place] [address] Care Team Providers Name Role Phone Cintia Cobb M.D. Primary Care Provider [phone] Reason for Visit Reason Comments PT Progress Note Encounter Details Date Type Department Care Team Description 01/02/2020 Clinical Department of [facility], PT Progress No te Communication Rehabilitation Lesli Oakes Services in [address], [address] [place] [phone] Social History Tobacco Use Types Packs/Day Years [...] as of this encounter Care Teams Scarfer Operator Relationship Specialty Start Date End Date Cintia Cobb M.D. PCP - General 02/19/17 02/20/[address] [place] [phone] documented as of this encounter
--- OUTSIDE RECORDS SUMMARY | 2022-08-05 10:12 | XMS_ITS | Encounter Summary ---
:1960 Author Organization [facility] Address [address] [place] [address] Care Team Providers Name Role Phone Cintia Cobb M.D. Primary Care Provider Reason for Referral Outpatient (Routine) - Closed Specialty Diagnoses / Procedures Referred By Contact Refer red To Contact Diagnoses Fracture Hip Closed Initial Left (HCC) Cintia Cobb [facility] [place] [facility] Procedures BMD Bone Density Spine Hips S, M.D. [address] [address] Referral ID Status Reason Start Date Expiration Date Visits Requ ested Visits Authorized [id number] Closed 11/08/2019 11/07/2020 1 1 MOBILE UPHOLSTERER Reason for Visit Outpatient (Routine) - Closed Specialty Diagnoses / Procedures Referred By Contact Refer red To Contact Diagnoses Fracture Hip Closed Initial Left (HCC) Cintia Cobb [place] Procedures BMD Bone Density Spine Hips S, M.D. [address] [address] Referral ID Status Reason Start Date Expiration Date Visits Requ ested Visits Authorized [id number] Closed 11/08/2019 11/07/2020 1 1 Encounter Details Date Type Department Care Team Description 11/09/2019 Hospital Encounter Department of Song Fracture Hip Closed Radiology in [place] Cop[place], Cintia Initi al Left ([facility]) [place], [place] S, M.D. [address] [place] [phone] Social History Tobacco Use Types Packs/Day Years [...] for this SPINE HIPS (most inpatients PM AUTOMOBILE UPHOLSTERER Closed Initial procedure are in and all Left (HCC) the results outpatients) section. documented in this encounter Results BMD Bone Density Spine Hips (11/09/2019 3:05 PM AUTOMOBILE UPHOLSTERER) Anatomical Region Laterality Modality Hip, Lumbar Spine, Nuclear Medicine RST LOS, N/A Radiographic Imaging Musculoskeletal ARZ LOS, Muskuloskeletal FLA LOS Specimen (Source) Anatomical Collection Method Collection Time Re ceived Time Location / / Volume Laterality 11/09/2019 3:29 PM AUTOMOBILE UPHOLSTERER Impressions 11/09/2019 3:31 PM AUTOMOBILE UPHOLSTERER Osteoporosis. Narrative 11/09/2019 3:31 PM AUTOMOBILE UPHOLSTERER EXAM: BMD BONE DENSITY SPINE HIPS COMPARISON: None. Public Affairs Officer/Model: [employer] FINDINGS: ?? LUMBAR SPINE L1-L4 included unless [...] BMD BONE DENSITY SPINE HIPS COMPARISON: None. Public Affairs Officer/Model: [employer] FINDINGS: LUMBAR SPINE L1-L4 included unless otherwise [...] documented as of this encounter Care Teams Induction Machine Setter Relationship Specialty Start Date End Date Cintia Cobb M.D. PCP - General 02/19/17 02/20/[address] [place] [phone] documented as of this encounter
--- OUTSIDE RECORDS SUMMARY | 2022-08-05 10:12 | XMS_ITS | Encounter Summary ---
:1960 Author Organization [facility] Address [address] [place] [address] Care Team Providers Name Role Phone Cintia Cobb M.D. Primary Care Provider Reason for Visit Physical Therapy (Routine) - Canceled Specialty Diagnoses / Procedures Referred By Contact Refer red To Contact Diagnoses Follow Up Examination Postoperative Visit Fracture Hip Intertrochanteric Closed Initial Left (HCC) Kacie Huerta APRN, [facility] Procedures PT Ongoing treatment C.N.P., D.N.P. [address] [place] [address] Referral ID Status Reason Start Date Expiration Date Visits V isits Requested Authorized [id number] Canceled 10/13/2019 10/12/2020 99 99 Encounter Details Date Type Department Care Team Description 01/18/2020 Clinical Department of Kacie Huerta APRN, C.N.P., D.N.P. [address] [place] [phone] Follow Up Examination Postoperative Visi t; Support Rehabilitation Lesli Dias P.TPili [address] [place] [phone] Fracture Hip Intertrochanteric Closed In itial Left (HCC) Services in [address] [place] [address] Social History Tobacco Use Types Packs/Day Years [...] eval and treat Onset Date: 08/12/19 Payor: [facility] CARE / Plan: [facility] BLUE PLUS HMO / Product Type: Medicaid [...] Dias P.T. Department of Rehabilitation Services in [address] [address] Dept: [phone] documented in this encounter Plan of Treatment Not on filedocumented as of this encounter Visit Diagnoses Diagnosis Follow Up Examination Postoperative Visi t Fracture Hip Intertrochanteric Closed In itial Left (HCC) documented in this encounter Additional Health Concerns Assessment Noted Time PHQ-9 Depression Total Score: 18 02/14/2013 9:53 AM CD T documented as of this encounter Care Teams Rotary Soil Stabilizer Relationship Specialty Start Date End Date Cintia Cobb M.D. PCP - General 02/19/17 02/20/[address] [place] [phone] documented as of this encounter
--- OUTSIDE RECORDS SUMMARY | 2022-08-05 10:12 | XMS_ITS | Encounter Summary ---
:1960 Author Organization [facility] Address [address] [place] [address] Care Team Providers Name Role Phone Cintia Cobb M.D. Primary Care Provider [phone] Reason for Visit Reason Comments DMV certificate Encounter Details Date Type Department Care Team Description 04/26/2020 Clinical Communication Department of [place] DMV certificate Family MedicineMin [facility] [place] S, M.D. Clinic, in [address] [address] [place], [place] [phone] (Work) [phone] Social History Tobacco Use Types Packs/Day Years [...] signed by her and placed at the hotel front desk clerk for pick-up. Certificate still needs to be completed by pt (ie. DL number). Certificate at hotel front desk clerk awaiting pt pick-up. documented in this encounter [...] Cobb M.D. PCP - General 02/19/17 02/20/[address] [address] documented as of this encounter
--- OUTSIDE RECORDS SUMMARY | 2022-08-05 10:12 | XMS_ITS | Encounter Summary ---
:[address] [facility] Address [address] [place] [address] Care Team Providers Name Role Phone Cintia Cobb M.D. Primary Care Provider [phone] Encounter Details Date Type Department Care Team Description 01/11/2020 Hospital Encounter Department of John Norman Up Examination Radiology in [place] M.D. Postoperative Visit [address] [phone] Social History Tobacco Use Types Packs/Day [...] test once a week. 100 each 11 03/0 11/2019 (glucose blood) strips Dx: E11.9, brand [...] (Mepilex) 4 Apply 1 each 10 each 0 12/18/2020 X 4 bandage topically every [...] Date/Time Associated Diagnosis Comme nts DX HIP LEFT 2-3 RAD - Routine 01/11/2020 2:51 Follow Up Results for this VIEWS (most inpatients PM CDT Examination procedure a re in and all Postoperative Visit the resu lts [...] documented as of this encounter Care Teams Biomedical Repair Technician Relationship Specialty Start Date End Date Cintia Cobb M.D. PCP - General 02/19/17 02/20/[address] [phone] documented as of this encounter
--- OUTSIDE RECORDS SUMMARY | 2022-08-05 10:12 | XMS_ITS | Encounter Summary ---
:1960 Author Organization [facility] Address [address] [place] [address] Care Team Providers Name Role Phone Cintia Cobb M.D. Primary Care Provider [phone] Reason for Visit Reason Comments Xray request Encounter Details Date Type Department Care Team Description 04/06/2020 Clinical Communication Department of [facility] Yady donahue, Xray request Medicine, Jose Daniel Piper M.D. [facility], [address] [address] [place], [place] [phone] (Work) [phone] Social History Tobacco Use Types Packs/Day Years [...] documented as of this encounter Care Teams End Worker Relationship Specialty Start Date End Date Cintia Cobb M.D. PCP - General 02/19/17 02/20/[phone] [place] [phone] documented as of this encounter
--- OUTSIDE RECORDS SUMMARY | 2022-08-05 10:12 | XMS_ITS | Encounter Summary ---
:1960 Author Organization [facility] Address [address] [place] [address] Care Team Providers Name Role Phone Cintia Cobb M.D. Primary Care Provider Encounter Details Date Type Department Care Team Description 07/04/2020 Orders Only [facility] [address] M.D . [address] [place] [address] [place], [place] [phone] (Wo rk) Social History Tobacco Use [...] documented as of this encounter Care Teams Wide Area Network Engineer Relationship Specialty Start Date End Date Cintia Cobb M.D. PCP - General 02/19/17 02/20/[phone] [place] [phone] documented as of this encounter
--- OUTSIDE RECORDS SUMMARY | 2022-08-05 10:12 | XMS_ITS | Encounter Summary ---
:1960 Author Organization [facility] Address [address] [place] [address] Care Team Providers Name Role Phone Cintia Cobb M.D. Primary Care Provider [phone] Reason for Visit Physical Therapy (Routine) - Canceled Specialty Diagnoses / Procedures Referred By Contact Refer red To Contact Diagnoses Follow Up Examination Postoperative Visit Fracture Hip Intertrochanteric Closed Initial Left (HCC) Kacie Huerta APRN, [facility] Procedures PT Ongoing treatment C.N.P., D.N.P. [address] [place] [address] Referral ID Status Reason Start Date Expiration Date Visits V isits Requested Authorized [id number] Canceled 10/13/2019 10/12/2020 99 99 Encounter Details Date Type Department Care Team Description 11/15/2019 Clinical Department of Kacie Huerta APRN, C.N.P., D.N.P. [address] [place] [phone] Follow Up Examination Postoperative Visi t; Support Rehabilitation Lesli Dias P.TPili [address] [place] [phone] Fracture Hip Intertrochanteric Closed In itial Left (HCC) Services in [address] [place] [address] Social History Tobacco Use Types Packs/Day Years [...] and treat Onset Date: 08/12/19 Payor: [facility] CARE / Plan: [facility] BLUE PLUS HMO / Product Type: [...] Dias P.T. Department of Rehabilitation Services in [address] [address] Dept: [phone] documented in this encounter Plan of Treatment Not on filedocumented as of this encounter Visit Diagnoses Diagnosis Follow Up Examination Postoperative Visi t Fracture Hip Intertrochanteric Closed In itial Left (HCC) documented in this encounter Additional Health Concerns Assessment Noted Time PHQ-9 Depression Total Score: 18 02/14/2013 9:53 AM CD T documented as of this encounter Care Teams Rn Hedis Relationship Specialty Start Date End Date Cintia Cobb M.D. PCP - General 02/19/17 02/20/[address] [place] [phone] documented as of this encounter
--- OUTSIDE RECORDS SUMMARY | 2022-08-05 10:12 | XMS_ITS | Encounter Summary ---
:1960 Author Organization [facility] Address [address] [place] [address] Care Team Providers Name Role Phone Cintia Cobb M.D. Primary Care Provider [phone] Encounter Details Date Type Department Care Team Description 04/06/2020 Hospital Encounter Department of Kacie Huerta Fract ure Hip Closed Radiology in [facility] C.N.P., Initial Left (HCC) [place], [place] D.N.P. [address] [place] [phone] Social History Tobacco Use Types Packs/Day [...] as of this encounter Care Teams Cone Runner Relationship Specialty Start Date End Date Cintia Cobb M.D. PCP - General 02/19/17 02/20/22 [address] [address] [place] [address] documented as of this encounter
--- OUTSIDE RECORDS SUMMARY | 2022-08-05 10:12 | XMS_ITS | Encounter Summary ---
:1960 Author Organization [facility] Address [address] [place] [address] Care Team Providers Name Role Phone Cintia Cobb M.D. Primary Care Provider [phone] Reason for Visit Reason Comments PT Progress Note Encounter Details Date Type Department Care Team Description 12/08/2019 Clinical Department of [place], PT Progress No te Communication Rehabilitation Lesli Oakes Services in [address], [address] [place] [phone] Social History Tobacco Use Types Packs/Day Years [...] documented as of this encounter Care Teams Oil Sprayer Relationship Specialty Start Date End Date Cintia Cobb M.D. PCP - General 02/19/17 02/20/[address] [place] [phone] documented as of this encounter
--- OUTSIDE RECORDS SUMMARY | 2022-08-05 10:12 | XMS_ITS | Encounter Summary ---
:1960 Author Organization [facility] Address [address] [place] [address] Care Team Providers Name Role Phone Cintia Cobb M.D. Primary Care Provider [phone] Reason for Visit Physical Therapy (Routine) - Canceled Specialty Diagnoses / Procedures Referred By Contact Refer red To Contact Diagnoses Follow Up Examination Postoperative Visit Fracture Hip Intertrochanteric Closed Initial Left (HCC) Kacie Huerta APRN, [facility] Procedures PT Ongoing treatment C.N.P., D.N.P. [address] [place] [phone] Referral ID Status Reason Start Date Expiration Date Visits V isits Requested Authorized [id number] Canceled 10/13/2019 10/12/2020 99 99 Encounter Details Date Type Department Care Team Description 02/01/2020 Clinical Department of Kacie Huerta APRN, C.N.P., D.N.P. [address] [place] [address] Follow Up Examination Postoperative Visi t; Support Rehabilitation Lesli Dias P.TPili [address] [place] [phone] Fracture Hip Intertrochanteric Closed In itial Left (HCC) Services in [address] [place] [address] Social History Tobacco Use Types Packs/Day Years [...] [facility] CARE / Plan: [facility] BLUE PLUS HMO / [...] Dias P.T. Department of Rehabilitation Services in [address] [address] Dept: [phone] documented in this encounter Plan of Treatment Not on filedocumented as of this encounter Visit Diagnoses Diagnosis Follow Up Examination Postoperative Visi t Fracture Hip Intertrochanteric Closed In itial Left (HCC) documented in this encounter Additional Health Concerns Assessment Noted Time PHQ-9 Depression Total Score: 18 02/14/2013 9:53 AM CD T documented as of this encounter Care Teams Desktop Support Manager Relationship Specialty Start Date End Date iCntia Cobb M.D. PCP - General 02/19/17 02/20/[address] [place] [phone] documented as of this encounter
--- OUTSIDE RECORDS SUMMARY | 2022-08-05 10:12 | XMS_ITS | Encounter Summary ---
:1960 Author Organization [facility] Address [address] [place] [address] Care Team Providers Name Role Phone Cintia Cobb M.D. Primary Care Provider [phone] Encounter Details Date Type Department Care Team Description 06/27/2020 Orders Only Pharmacy Prior Auth RO Unassigned, Pcp [phone] Social History Tobacco Use Types Packs/Day Years [...] documented as of this encounter Care Teams Blunger Relationship Specialty Start Date End Date Cintia Cobb M.D. PCP - General 02/19/17 02/20/[address] [place] [phone] documented as of this encounter
--- OUTSIDE RECORDS SUMMARY | 2022-08-05 10:12 | XMS_ITS | Encounter Summary ---
:1960 Author Organization [facility] Address [address] [place] [address] Care Team Providers Name Role Phone Cintia Cobb M.D. Primary Care Provider [phone] Encounter Details Date Type Department Care Team Description 04/12/2020 Clinical Communication Department of John Norman , Orthopedic Surgery in [place] [address] [address] [phone] Social History Tobacco Use Types Packs/Day Years [...] documented as of this encounter Care Teams Chairman Relationship Specialty Start Date End Date Cintia Cobb M.D. PCP - General 02/19/17 02/20/[address] [phone] documented as of this encounter
--- OUTSIDE RECORDS SUMMARY | 2022-08-05 10:12 | XMS_ITS | Encounter Summary ---
:1960 Author Organization [facility] Address [address] [place] [address] Care Team Providers Name Role Phone Cintia Cobb M.D. Primary Care Provider [phone] Encounter Details Date Type Department Care Team Description 04/06/2020 Clinical Communication [facility], Jose Daniel Piper M.D. [address] [address] [place], [place] [phone] (Work) [phone] Social History Tobacco Use Types Packs/Day Years Used Date Smoking Tobacco: Never Smokeless Tobacco: Never Alcohol Use Standard Drinks/Week Comments No 0 (1 standard drink = 0.6 oz pure alcoho l) Sex Assigned at Date Recorded Not on file documented as of this encounter Miscellaneous Notes Telephone Encounter - Eli Enrique Abby - 04/06/2020 3:04 PM CDT ([facility] and [facility] locations only: If the patient is not having symptoms and is requesting COVID-19 Nasal Swab testing only, use the process listed in the COVID-19 Patient Requesting COVID PCR Test OTG COVID-19 [place] Patient Requesting COVID PCR Test). 1. Do [...] documented as of this encounter Care Teams It Business Systems Analyst Relationship Specialty Start Date End Date Cintia Cobb M.D. PCP - General 02/19/17 02/20/[address] [place] [phone] documented as of this encounter
--- OUTSIDE RECORDS SUMMARY | 2022-08-05 10:12 | XMS_ITS | Encounter Summary ---
:1960 Author Organization [facility] Address [address] [place] [address] Care Team Providers Name Role Phone Cintia Cobb M.D. Primary Care Provider [phone] Encounter Details Date Type Department Care Team Description 12/26/2019 Orders Only Department of [facility] Yady Cobb Hip Closed MedicineJose Daniel M.D. Initial Left (HCC) [facility], in [address] [place] [address] (Primary Dx) [address] [address] [place], [place] [phone] (W ork) [phone] [phone] Social History Tobacco Use Types Packs/Day Years [...] as of this encounter Care Teams Senior Consumer Insights Consultant Relationship Specialty Start Date End Date Cintia Cobb M.D. PCP - General 02/19/17 02/20/[address] [place] [phone] documented as of this encounter
--- OUTSIDE RECORDS SUMMARY | 2022-08-05 10:12 | XMS_ITS | Encounter Summary ---
:1960 Author Organization [facility] Address [address] [place] [address] Care Team Providers Name Role Phone Cintia Cobb M.D. Primary Care Provider [phone] Reason for Visit Reason Comments PT Progress Note Encounter Details Date Type Department Care Team Description 11/29/2019 Clinical Department of [place], PT Progress No te Communication Rehabilitation Lesli Oakes Services in [address], [address] [place] [phone] Social History Tobacco Use Types Packs/Day Years [...] sent to patient viaemail provided by patient ([email or web address] Exercises included SLR, seated hip abduction with [...] documented as of this encounter Care Teams Track Machine Operator Repairer Relationship Specialty Start Date End Date Cintia Cobb M.D. PCP - General 02/19/17 02/20/[id number] [phone] documented as of this encounter
--- OUTSIDE RECORDS SUMMARY | 2022-08-05 10:12 | XMS_ITS | Encounter Summary ---
:1960 Author Organization [facility] Address [address] [place] [address] Care Team Providers Name Role Phone Cintia Cobb M.D. Primary Care Provider [phone] Reason for Visit Reason Onset Date Comments diabetic supplies 11/09/2019 Encounter Details Date Type Department Care Team Description 11/09/2019 Clinical Communication Department of [place] [facility] supplies Family MedicineMin Megan [place] S, M.D. Clinic, in [address] [address] [place], [place] [phone] (Work) [phone] Social History Tobacco Use Types Packs/Day Years Used Date Smoking Tobacco: Never Smokeless Tobacco: Never Alcohol Use Standard Drinks/Week Comments No 0 (1 standard drink = 0.6 oz pure alcoho l) Sex Assigned at Date Recorded Not on file documented as of this encounter Miscellaneous Notes Telephone Encounter - Cintia Cobb M.D. - 11/09/2019 9:12 PM RETAIL ADVERTISING EXECUTIVE Script sent. [place] ADVERTISING EXECUT[place] Telephone Encounter - Aminata Hill L.PPiliNPili - 11/09/2019 2:22 PM RETAIL ADVERTISING EXECUTIVE Pharmacy called stating they received a prescription for test strips but also need an order for lancets and meter. Orders pended to PCP [place] ADVERT[place] EXECUT[place] documented in this encounter Plan of Treatment Not on filedocumented as of this encounter Visit Diagnoses Not on filedocumented in this encounter Additional Health Concerns Assessment Noted Time PHQ-9 Depression Total Score: 18 02/14/2013 9:53 AM CD T documented as of this encounter Care Teams Plant Safety Leader Relationship Specialty Start Date End Date Cintia Cobb M.D. PCP - General 02/19/17 02/20/[address] [place] [phone] documented as of this encounter
--- OUTSIDE RECORDS SUMMARY | 2022-08-05 10:12 | XMS_ITS | Encounter Summary ---
:1960 Author Organization [facility] Address [address] [place] [address] Care Team Providers Name Role Phone Cintia Cobb M.D. Primary Care Provider [phone] Reason for Referral Outpatient (Routine) - Closed Specialty Diagnoses / Procedures Referred By Contact Refer red To Contact Diagnoses Trochanteric Bursitis Left Hip Kacie Huerta, [place], [facility] Region Procedures mhv-dego-rvioztcj-elbow arthrocentesis: L greater troch bursa C.N.P., D.N.P. [address] [place] [address] Referral ID Status Reason Start Date Expiration Date Visits Requ ested Visits Authorized [id number] Closed 08/07/2020 08/07/2021 1 1 ING AND BLENDING SUPERVISOR Reason for Visit Reason Comments Pain Appointment Request (Routine) - Closed Specialty Diagnoses / Procedures Referred By Contact Refer red To Contact Orthopedic Surgery Referral ID Status Reason Start Date Expiration Date Visits Requ ested Visits Authorized [id number] Closed 08/07/2020 08/07/2021 1 1 Encounter Details Date Type Department Care Team Description 08/07/2020 Office Visit Department of Kacie Huerta, Pain Hip Le ft (Primary Dx); Orthopedic Surgery in [place] C.N.PPili, Troch anteric Bursitis Left Hip Fidel CondonN.P. [place] [phone] [address] [place] [phone] Social History [...] should be repeated prior to that visit. ING AND BLENDING SUPERVISOR documented in this encounter Procedure Notes Aleksandra Garcia L.P.N. - 08/07/2020 10:30 AM CSTAssociated Order(s): jcr-tlzm-whsxfbtt-elbow arthrocentesis: L greater troch bursa Post-Procedure Diagnose(s): [...] dressing care and follow-up with ordering provider ING AND BLENDING SUPERVISOR documented in this encounter Plan of Treatment Not on filedocumented as of this encounter Procedures Procedure Name Priority Date/Time Associated Diagnosis Comme nts CA ARTHCS ASP/INJ Routine 08/07/2020 10:30 Trochanteric Bursit is Results for this MJR JT WO US AM HEATING AND BLENDING SUPERVISOR Left Hip procedure are i n the results section. documented in this encounter Results DX Hip Left 2-3 Views (08/07/2020 11:00 AM HEATING AND BLENDING SUPERVISOR) Anatomical Region Laterality Modality Lower Extremity, Hip, Musculoskeletal RST LOS, Left Digital Radiography Musculoskeletal ARZ LOS, Muskuloskeletal FLA LOS Specimen (Source) Anatomical Collection Method Collection Time Re ceived Time Location / / Volume Laterality 08/07/2020 11:28 AM HEATING AND BLENDING SUPERVISOR Impressions 08/07/2020 11:29 AM HEATING AND BLENDING SUPERVISOR Postoperative changes proximal left femoral intramedullary rodding screw fixation across the intertrochanteric fr acture. Hardware is intact. No evidence of acute osseous abnormality. Mild degen erative changes of the bilateral hips. Atherosclerotic vascular disease. March 092019 comparison. Narrative 08/07/2020 11:29 AM HEATING AND BLENDING SUPERVISOR EXAM: DX HIP LEFT 2-3 VIEWS Procedure [...] C.N.PPili, D.N.P. IMG DIAGNOSTIC IMAG ING PROCEDURES CA ARTHCS ASP/INJ MJR JT WO US (08/07/2020 10:30 AM HEATING AND BLENDING SUPERVISOR) Narrative MMODAL - 08/07/2020 10:30 AM HEATING AND BLENDING SUPERVISOR Aleksandra Garcia L.P.N. ? 08/08/2020 ??9:00 AM [...] (1 %) injection Given 08/07/2020 11:35 AM HEATING AND BLENDING SUPERVISOR 5 mL 5 mL (XYLOCAINE) 5 mL, infiltration, One-Time Injection, Starting on Thu08/07/20 at 1135, For 1 dose methylPREDNISolone acetate injection 80 mg Given 08/07/2020 11:3 5 AM HEATING AND BLENDING SUPERVISOR 80 mg (DEPO-Medrol) 80 mg, intra-articular, One-Time Injection, Starting on Thu08/07/20 at 1135, For 1 dose documented in this encounter Additional Health Concerns Assessment Noted Time PHQ-9 Depression Total Score: 18 02/14/2013 9:53 AM CD T documented as of this encounter Care Teams Field Support Specialist Relationship Specialty Start Date End Date Cintia Cobb M.D. PCP - General 02/19/17 02/20/[address] [place] [phone] documented as of this encounter
--- OUTSIDE RECORDS SUMMARY | 2022-08-05 10:12 | XMS_ITS | Encounter Summary ---
:1960 Author Organization [facility] Address [address] [place] [address] Care Team Providers Name Role Phone Cintia Cobb M.D. Primary Care Provider [phone] Reason for Visit Physical Therapy (Routine) - Canceled Specialty Diagnoses / Procedures Referred By Contact Refer red To Contact Diagnoses Follow Up Examination Postoperative Visit Fracture Hip Intertrochanteric Closed Initial Left (HCC) Kacie Huerta APRN, [facility] Procedures PT Ongoing treatment C.N.P., D.N.P. [address] [place] [phone] Referral ID Status Reason Start Date Expiration Date Visits V isits Requested Authorized [id number] Canceled 10/13/2019 10/12/2020 99 99 Encounter Details Date Type Department Care Team Description 12/19/2019 Virtual Visit Department of Kacie Huerta APRN, C.N.P., D.N.P. [address] [place] [phone] Follow Up Examination Postoperative Visi t; Rehabilitation Lesli Dias, P.TPili [address] [place] [phone] Fracture Hip Intertrochanteric Closed In itial Left (HCC) Services in [address] [place] [address] Social History Tobacco Use Types Packs/Day Years [...] eval and treat Onset Date: 08/12/19 Payor: [facility] C[facility] / Plan: [facility] [employer] [facility] HMO / Product Type: Medicaid HMO [...] him. 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 Mild difficulty getting in/out of his [...] Dias P.T. Department of Rehabilitation Services in [address] [address] Dept: [phone] documented in this encounter Plan of Treatment Not on filedocumented as of this encounter Visit Diagnoses Diagnosis Follow Up Examination Postoperative Visi t Fracture Hip Intertrochanteric Closed In itial Left (HCC) documented in this encounter Additional Health Concerns Assessment Noted Time PHQ-9 Depression Total Score: 18 02/14/2013 9:53 AM CD T documented as of this encounter Care Teams Nib Adjuster Relationship Specialty Start Date End Date Cintia Cobb M.D. PCP - General 02/19/17 02/20/[address] [place] [phone] documented as of this encounter
--- OUTSIDE RECORDS SUMMARY | 2022-08-05 10:12 | XMS_ITS | Encounter Summary ---
:1960 Author Organization [facility] Address [address] [place] [address] Care Team Providers Name Role Phone Cintia Cobb M.D. Primary Care Provider [phone] Encounter Details Date Type Department Care Team Description 01/11/2020 Office Visit Department of Kacie Huerta, Follow Up E xamination Orthopedic Surgery in [place] C.N.P., Posto perative Visit [place], [place] D.N.P. (Primary Dx) [address] [facility] [address] [place] [phone] Social History Tobacco Use Types Packs/Day Years [...] as of this encounter Care Teams Industrial Gas Servicer Helper Relationship Specialty Start Date End Date Cintia Cobb M.D. PCP - General 02/19/17 02/20/[address] [place] [phone] documented as of this encounter
--- OUTSIDE RECORDS SUMMARY | 2022-08-05 10:12 | XMS_ITS | Encounter Summary ---
:1960 Author Organization [facility] Address [address] [place] [address] Care Team Providers Name Role Phone Cintia Cobb M.D. Primary Care Provider [phone] Encounter Details Date Type Department Care Team Description 04/26/2020 Orders Only Department of [facility] Angélica Cobb Medicine, Jose Daniel Piper M.D. Clinic, in [address] [address] [place], [place] [phone] (W ork) [phone] [phone] Social History Tobacco Use Types Packs/Day Years [...] documented as of this encounter Care Teams Retrieval Specialist Relationship Specialty Start Date End Date Cintia Cobb M.D. PCP - General 02/19/17 02/20/[address] [place] [phone] documented as of this encounter
--- OUTSIDE RECORDS SUMMARY | 2022-08-05 10:12 | XMS_ITS | Encounter Summary ---
:[address] [facility] Address [address] [place] [address] Care Team Providers Name Role Phone Cintia Cobb M.D. Primary Care Provider [phone] Reason for Visit Reason Comments Communication Encounter Details Date Type Department Care Team Description 01/06/2020 Clinical Communication Department of Kacie Huerta C ommunication Orthopedic Surgery in [facility] [place] D.N.P. [address] [facility] [address] [place] [phone] Social History Tobacco Use Types Packs/Day Years [...] as of this encounter Care Teams Gallery Director Relationship Specialty Start Date End Date Cintia Cobb M.D. PCP - General 02/19/17 02/20/[phone] [place] [phone] documented as of this encounter
--- OUTSIDE RECORDS SUMMARY | 2022-08-05 10:12 | XMS_ITS | Encounter Summary ---
:1960 Author Organization [facility] Address [address] [place] [address] Care Team Providers Name Role Phone Cintia Cobb M.D. Primary Care Provider [phone] Reason for Visit Physical Therapy (Routine) - Canceled Specialty Diagnoses / Procedures Referred By Contact Refer red To Contact Diagnoses Follow Up Examination Postoperative Visit Fracture Hip Intertrochanteric Closed Initial Left (HCC) Kacie Huerta APRN, [facility] Procedures PT Ongoing treatment C.N.P., D.N.P. [address] [place] [phone] Referral ID Status Reason Start Date Expiration Date Visits V isits Requested Authorized [id number] Canceled 10/13/2019 10/12/2020 99 99 Encounter Details Date Type Department Care Team Description 11/25/2019 Clinical Department of Kacie Huerta APRN, C.N.P., D.N.P. [address] [place] [phone] Follow Up Examination Postoperative Visi t; Support Rehabilitation Lesli Dias P.TPili [address] [place] [phone] Fracture Hip Intertrochanteric Closed In itial Left (HCC) Services in [address] [place] [address] Social History Tobacco Use Types Packs/Day Years [...] eval and treat Onset Date: 08/12/19 Payor: [facility] CARE / Plan: [facility] BLUE PLUS HMO / Product Type: Medicaid [...] Dias P.T. Department of Rehabilitation Services in [address] [address] Dept: [phone] documented in this encounter Plan of Treatment Not on filedocumented as of this encounter Visit Diagnoses Diagnosis Follow Up Examination Postoperative Visi t Fracture Hip Intertrochanteric Closed In itial Left (HCC) documented in this encounter Additional Health Concerns Assessment Noted Time PHQ-9 Depression Total Score: 18 02/14/2013 9:53 AM CD T documented as of this encounter Care Teams Emergency Medical Technician/Driver Relationship Specialty Start Date End Date Cintia Cobb M.D. PCP - General 02/19/17 02/20/[address] [place] [address], [place] [phone] documented as of this encounter
--- OUTSIDE RECORDS SUMMARY | 2022-08-05 10:12 | XMS_ITS | Encounter Summary ---
:1960 Author Organization [facility] Address [address] [place] [address] Care Team Providers Name Role Phone Cintia Cobb M.D. Primary Care Provider [phone] Reason for Visit Physical Therapy (Routine) - Canceled Specialty Diagnoses / Procedures Referred By Contact Refer red To Contact Diagnoses Follow Up Examination Postoperative Visit Fracture Hip Intertrochanteric Closed Initial Left (HCC) Kacie Huerta APRN, [facility] Procedures PT Ongoing treatment C.N.P., D.N.P. [address] [place] [phone] Referral ID Status Reason Start Date Expiration Date Visits V isits Requested Authorized [id number] Canceled 10/13/2019 10/12/2020 99 99 Encounter Details Date Type Department Care Team Description 11/17/2019 Clinical Department of Kacie Huerta APRN, C.N.P., D.N.P. [address] [place] [phone] Follow Up Examination Postoperative Visi t; Support Rehabilitation Lesli Dias P.TPili [address] [place] [phone] Fracture Hip Intertrochanteric Closed In itial Left (HCC) Services in [address] [place] [address] Social History Tobacco Use Types Packs/Day Years [...] eval and treat Onset Date: 08/12/19 Payor: [facility] CARE / Plan: [place] BLUE PLUS [...] Dias P.T. Department of Rehabilitation Services in [address] [address] Dept: [phone] documented in this encounter Plan of Treatment Not on filedocumented as of this encounter Visit Diagnoses Diagnosis Follow Up Examination Postoperative Visi t Fracture Hip Intertrochanteric Closed In itial Left (HCC) documented in this encounter Additional Health Concerns Assessment Noted Time PHQ-9 Depression Total Score: 18 02/14/2013 9:53 AM CD T documented as of this encounter Care Teams Gang Investigator Relationship Specialty Start Date End Date Cintia Cobb M.D. PCP - General 02/19/17 02/20/[address] [place] [phone] documented as of this encounter
--- OUTSIDE RECORDS SUMMARY | 2022-08-05 10:13 | XMS_ITS | Encounter Summary ---
:1960 Author Organization [facility] Address [address] [place] [address] Care Team Providers Name Role Phone Cintia Cobb M.D. Primary Care Provider [phone] Encounter Details Date Type Department Care Team Description 11/07/2019 Hospital Encounter Department of [place] Fracture Hip Closed Radiology in Cintia Jean Baptiste Initi renée Mcmahon ([facility]) [place], [place] Keely Piper [address] [place] [phone] Social History Tobacco Use Types Packs/Day Years [...] Results for this VIEWS (most inpatients PM DIGITAL MEDIA REPRESENTATIVE Closed Initial procedure are in and all Left (HCC) the results outpatients) section. documented in this encounter Results DX Hip Left 2-3 Views (11/07/2019 2:58 PM DIGITAL MEDIA REPRESENTATIVE) Anatomical Region Laterality Modality Lower Extremity, Hip, Musculoskeletal RST LOS, Left Digital Radiography Musculoskeletal ARZ LOS, Muskuloskeletal FLA LOS Specimen (Source) Anatomical Collection Method Collection Time Re ceived Time Location / / Volume Laterality 11/07/2019 3:14 PM DIGITAL MEDIA REPRESENTATIVE Impressions 11/07/2019 3:15 PM DIGITAL MEDIA REPRESENTATIVE Postop changes prior IM ovidio, nail fixation [...] Hardware is intact Narrative 11/07/2019 3:15 PM DIGITAL MEDIA REPRESENTATIVE EXAM: DX HIP LEFT 2-3 VIEWS COMPARISON: [...] as of this encounter Care Teams Senior Art Director Relationship Specialty Start Date End Date Cintia Cobb M.D. PCP - General 02/19/17 02/20/[address] [phone] documented as of this encounter
--- OUTSIDE RECORDS SUMMARY | 2022-08-05 10:13 | XMS_ITS | Encounter Summary ---
:1960 Author Organization [facility] Address [address] [place] [address] Care Team Providers Name Role Phone Cintia Cobb M.D. Primary Care Provider [phone] Reason for Referral Physical Therapy (Routine) - Closed Specialty Diagnoses / Procedures Referred By Contact Refer red To Contact Diagnoses Follow Up Examination Postoperative Visit Fracture Hip Intertrochanteric Closed Initial Left (HCC) Kacie Huerta, [place], [facility] Procedures PT Evaluate and treat C.N.P., D.N.P. [address] [place] [phone] Referral ID Status Reason Start Date Expiration Date Visits Requ ested Visits Authorized [id number] Closed 10/04/2019 10/03/2020 1 1 ELING ACCOUNTANT Reason for Visit Appointment Request (Routine) - Closed Specialty Diagnoses / Procedures Referred By Contact Refer red To Contact Family Medicine Referral ID Status Reason Start Date Expiration Date Visits Requ ested Visits Authorized [id number] Closed 09/09/2019 09/08/2020 1 1 Encounter Details Date Type Department Care Team Description 10/04/2019 Office Visit Department of Kacie Huerta, Follow Up E xamination Postoperative Visit (Primary Dx); Orthopedic Surgery [place], C.N.P., Fracture Hip Intertrochanteric Closed Initial Left (HCC) in [place], FidelN.Tigist. [place] [id number] [address] [place] [phone] Social History Tobacco Use Types Packs/Day [...] the wound nurse. His questions were answered ELING ACCOUNTANT documented in this encounter Plan of Treatment Not on filedocumented as of this encounter Results DX Hip And Pelvis Left 2-3 Views (10/04/2019 3:58 PM TRAVELING ACCOUNTANT) Anatomical Region Laterality Modality Lower Extremity, Pelvis, Hip, Musculoskeletal RST LOS, Left Digital Radiography Musculoskeletal ARZ LOS, Muskuloskeletal FLA LOS Specimen (Source) Anatomical Collection Method Collection Time Re ceived Time Location / / Volume Laterality 10/04/2019 4:42 PM TRAVELING ACCOUNTANT Impressions 10/04/2019 4:43 PM TRAVELING ACCOUNTANT Prior surgical fixation across a subacute fracture of the intertrochanteric left femur. The fractu re line remains visible with interval healing change. No evidence of hardware loosening. Negative for acute fracture. Degenerative changes at the lumbosacral junction, both SI joints, and right hip. Demineralization. Narrative 10/04/2019 4:43 PM TRAVELING ACCOUNTANT EXAM: DX HIP AND PELVIS LEFT 2-3 [...] documented as of this encounter Care Teams Drafter Tool Design Relationship Specialty Start Date End Date Cintia Cobb M.D. PCP - General 02/19/17 02/20/[address] [phone] documented as of this encounter
--- OUTSIDE RECORDS SUMMARY | 2022-08-05 10:13 | XMS_ITS | Encounter Summary ---
:1960 Author Organization [facility] Address [address] [place] [address] Care Team Providers Name Role Phone Cintia Cobb M.D. Primary Care Provider [phone] Encounter Details Date Type Department Care Team Description 10/31/2019 Orders Only Department of [facility] Angélica Cobb Medicine, Jose Daniel Piper M.D. Clinic, in [address] [address] [place], [place] [phone] (W ork) [address] [phone] Social History Tobacco Use Types Packs/Day Years [...] documented as of this encounter Care Teams Petroleum Engineering Teacher Relationship Specialty Start Date End Date Cintia Cobb M.D. PCP - General 02/19/17 02/20/[address] [place] [phone] documented as of this encounter
--- OUTSIDE RECORDS SUMMARY | 2022-08-05 10:13 | XMS_ITS | Encounter Summary ---
:1960 Author Organization [facility] Address [address] [place] [address] Care Team Providers Name Role Phone Cintia Cobb M.D. Primary Care Provider [phone] Reason for Visit Physical Therapy (Routine) - Canceled Specialty Diagnoses / Procedures Referred By Contact Refer red To Contact Diagnoses Follow Up Examination Postoperative Visit Fracture Hip Intertrochanteric Closed Initial Left (HCC) Kacie Huerta APRN, [facility] Procedures PT Ongoing treatment C.N.P., D.N.P. [address] [place] [phone] Referral ID Status Reason Start Date Expiration Date Visits V isits Requested Authorized [id number] Canceled 10/13/2019 10/12/2020 99 99 Encounter Details Date Type Department Care Team Description 10/27/2019 Clinical Department of Kacie Huerta APRN, C.N.P., D.N.P. [address] [place] [phone] Follow Up Examination Postoperative Visi t; Support Rehabilitation Lesli Dias P.TPili [address] [place] [phone] Fracture Hip Intertrochanteric Closed In itial Left (HCC) Services in [address] [place] [address] Social History Tobacco Use Types Packs/Day Years [...] eval and treat Onset Date: 08/12/19 Payor: [facility] CARE / Plan: [facility] BLUE PLUS HMO / Product [...] Dias P.T. Department of Rehabilitation Services in [address] [address] Dept: [phone] ON PRINTER documented in this encounter Plan of Treatment Not on filedocumented as of this encounter Visit Diagnoses Diagnosis Follow Up Examination Postoperative Visi t Fracture Hip Intertrochanteric Closed In itial Left (HCC) documented in this encounter Additional Health Concerns Assessment Noted Time PHQ-9 Depression Total Score: 18 02/14/2013 9:53 AM CD T documented as of this encounter Care Teams Perfect Bind Machine Operator Relationship Specialty Start Date End Date Cintia Cobb M.D. PCP - General 02/19/17 02/20/[address] [place] [phone] documented as of this encounter
--- OUTSIDE RECORDS SUMMARY | 2022-08-05 10:13 | XMS_ITS | Encounter Summary ---
:1960 Author Organization [facility] Address [address] [place] [address] Care Team Providers Name Role Phone Cintia Cobb M.D. Primary Care Provider [phone] Reason for Visit Physical Therapy (Routine) - Canceled Specialty Diagnoses / Procedures Referred By Contact Refer red To Contact Diagnoses Follow Up Examination Postoperative Visit Fracture Hip Intertrochanteric Closed Initial Left (HCC) Kacie Huerta APRN, [facility] Procedures PT Ongoing treatment C.N.P., D.N.P. [address] [place] [address] Referral ID Status Reason Start Date Expiration Date Visits V isits Requested Authorized [id number] Canceled 10/13/2019 10/12/2020 99 99 Encounter Details Date Type Department Care Team Description 10/21/2019 Clinical Department of Kacie Huerta APRN, C.N.P., D.N.P. [address] [place] [phone] Follow Up Examination Postoperative Visi t; Support Rehabilitation Lesli Dias P.TPili [address] [place] [phone] Fracture Hip Intertrochanteric Closed In itial Left (HCC) Services in [address] [place] [address] Social History Tobacco Use Types Packs/Day Years [...] [facility] CARE / Plan: [facility] BLUE PLUS HMO / Product Type: Medicaid [...] Dias P.T. Department of Rehabilitation Services in [address] [address] Dept: [phone] UCTION UTILITY WORKER documented in this encounter Plan of Treatment Not on filedocumented as of this encounter Visit Diagnoses Diagnosis Follow Up Examination Postoperative Visi t Fracture Hip Intertrochanteric Closed In itial Left (HCC) documented in this encounter Additional Health Concerns Assessment Noted Time PHQ-9 Depression Total Score: 18 02/14/2013 9:53 AM CD T documented as of this encounter Care Teams Installer Inspector Final Relationship Specialty Start Date End Date Cintia Cobb M.D. PCP - General 02/19/17 02/20/[address] [place] [phone] documented as of this encounter
--- OUTSIDE RECORDS SUMMARY | 2022-08-05 10:13 | XMS_ITS | Encounter Summary ---
:1960 Author Organization [facility] Address [address] [place] [address] Care Team Providers Name Role Phone Cintia Cobb M.D. Primary Care Provider [phone] Reason for Visit Reason Comments Med Refill Encounter Details Date Type Department Care Team Description 09/17/2019 Refill Department of Family Medicine, Gray Danielson M.D. Med Refill [facility], in [place] [address] [address] [place], [place] [address] [phone] Social History Tobacco Use Types Packs/Day Years [...] documented as of this encounter Care Teams Special Effects Specialist Relationship Specialty Start Date End Date Cintia Cobb M.D. PCP - General 02/19/17 02/20/[address] [phone] documented as of this encounter
--- OUTSIDE RECORDS SUMMARY | 2022-08-05 10:13 | XMS_ITS | Encounter Summary ---
:1960 Author Organization [facility] Address [address] [place] [address] Care Team Providers Name Role Phone Cintia Cobb M.D. Primary Care Provider [phone] Reason for Visit Physical Therapy (Routine) - Canceled Specialty Diagnoses / Procedures Referred By Contact Refer red To Contact Diagnoses Follow Up Examination Postoperative Visit Fracture Hip Intertrochanteric Closed Initial Left (HCC) Kacie Huerta APRN, [facility] Procedures PT Ongoing treatment C.N.P., D.N.P. [address] [place] [address] Referral ID Status Reason Start Date Expiration Date Visits V isits Requested Authorized [id number] Canceled 10/13/2019 10/12/2020 99 99 Encounter Details Date Type Department Care Team Description 10/19/2019 Clinical Department of Kacie Huerta APRN, C.N.P., D.N.P. [address] [place] [phone] Follow Up Examination Postoperative Visi t; Support Rehabilitation Lesli Dias P.TPili [address] [place] [phone] Fracture Hip Intertrochanteric Closed In itial Left (HCC) Services in [address] [place] [address] Social History Tobacco Use Types Packs/Day Years [...] [facility] CARE / Plan: [facility] [employer] HMO / Product Type: Medicaid HMO / [...] Dias P.T. Department of Rehabilitation Services in [address] [address] Dept: [phone] ARCH ENGINEER documented in this encounter Plan of Treatment Not on filedocumented as of this encounter Visit Diagnoses Diagnosis Follow Up Examination Postoperative Visi t Fracture Hip Intertrochanteric Closed In itial Left (HCC) documented in this encounter Additional Health Concerns Assessment Noted Time PHQ-9 Depression Total Score: 18 02/14/2013 9:53 AM CD T documented as of this encounter Care Teams Lather Apprentice Relationship Specialty Start Date End Date Cintia Cobb M.D. PCP - General 02/19/17 02/20/[address] [phone] documented as of this encounter
--- OUTSIDE RECORDS SUMMARY | 2022-08-05 10:13 | XMS_ITS | Encounter Summary ---
:1960 Author Organization [facility] Address [address] [place] [address] Care Team Providers Name Role Phone Cintia Cobb M.D. Primary Care Provider [phone] Encounter Details Date Type Department Care Team Description 09/12/2019 Orders Only Department of [facility] Angélica Cobb Medicine, Jose Daniel Piper M.D. Clinic, in [address] [address] [place], [place] [phone] (W ork) [address] [phone] Social History Tobacco Use Types Packs/Day Years [...] as of this encounter Care Teams Field Radio Technician Relationship Specialty Start Date End Date Cintia Cobb M.D. PCP - General 02/19/17 02/20/[address] [place] [phone] documented as of this encounter
--- OUTSIDE RECORDS SUMMARY | 2022-08-05 10:13 | XMS_ITS | Encounter Summary ---
:1960 Author Organization [facility] Address [address] [place] [address] Care Team Providers Name Role Phone Citnia Cobb M.D. Primary Care Provider [phone] Reason for Visit Physical Therapy (Routine) - Canceled Specialty Diagnoses / Procedures Referred By Contact Refer red To Contact Diagnoses Follow Up Examination Postoperative Visit Fracture Hip Intertrochanteric Closed Initial Left (HCC) Kacie Huerta APRN, [facility] Procedures PT Ongoing treatment C.N.P., D.N.P. [address] [place] [address] Referral ID Status Reason Start Date Expiration Date Visits V isits Requested Authorized [id number] Canceled 10/13/2019 10/12/2020 99 99 Encounter Details Date Type Department Care Team Description 11/07/2019 Clinical Department of Kacie Huerta APRN, C.N.P., D.N.P. [address] [place] [phone] Follow Up Examination Postoperative Visi t; Support Rehabilitation Lesli Dias P.TPili [address] [place] [phone] Fracture Hip Intertrochanteric Closed In itial Left (HCC) Services in [address] [place] [address] Social History Tobacco Use Types Packs/Day Years [...] eval and treat Onset Date: 08/12/19 Payor: [facility] CARE / Plan: [facility] BLUE PLUS HMO / Product Type: [...] Dias P.T. Department of Rehabilitation Services in [address] [address] Dept: [phone] OR FINISHING MACHINE OPERATOR documented in this encounter Plan of Treatment Not on filedocumented as of this encounter Visit Diagnoses Diagnosis Follow Up Examination Postoperative Visi t Fracture Hip Intertrochanteric Closed In itial Left (HCC) documented in this encounter Additional Health Concerns Assessment Noted Time PHQ-9 Depression Total Score: 18 02/14/2013 9:53 AM CD T documented as of this encounter Care Teams Sales And Business Development Manager Relationship Specialty Start Date End Date Cintia Cobb M.D. PCP - General 02/19/17 02/20/[address] [place] [phone] documented as of this encounter
--- OUTSIDE RECORDS SUMMARY | 2022-08-05 10:13 | XMS_ITS | Encounter Summary ---
:1960 Author Organization [facility] Address [address] [place] [address] Care Team Providers Name Role Phone Kevin Bullock M.D. Primary Care Provider [phone] Reason for Referral Outpatient (Routine) - Closed Specialty Diagnoses / Procedures Referred By Contact Refer red To Contact Diagnoses Fracture Hip Closed Initial Left (HCC) Kevin Bullock [facility] Procedures BMD Bone Density Spine Hips Keely Piper [address] [address] Referral ID Status Reason Start Date Expiration Date Visits Requ ested Visits Authorized [id number] Closed 11/08/2019 11/07/2020 1 1 hysical Therapy (Routine) - Closed Specialty Diagnoses / Procedures Referred By Contact Refer red To Contact Diagnoses Pain Shoulder Right Kevin Bullock [facility] Procedures PT Evaluate and treat SKeely [address] [address] Referral ID Status Reason Start Date Expiration Date Visits Requ ested Visits Authorized [id number] Closed 11/08/2019 11/07/2020 1 1 HEN STEWARD Reason for Visit Appointment Request (Routine) - Closed Specialty Diagnoses / Procedures Referred By Contact Refer red To Contact Family Medicine Referral ID Status Reason Start Date Expiration Date Visits Requ ested Visits Authorized [id number] Closed 10/04/2019 10/03/2020 1 1 Encounter Details Date Type Department Care Team Description 11/08/2019 Office Visit Department of Family Terri Bullock 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 Diabetes Mellitus Type 2 Ulcer Foot ([facility] ); [facility], in [address] [place] [address] Pain Elle ulder Right; Jose Daniel Dean, [facility] Fracture Hip Closed Initial Left (HCC); [place] Jose Daniel Dean [place] Anemia Microcytic; [address] [place] [address] [address] [address] Gastric Bypass Status Post; DREW CONDON [phone] Hypertensio n Essential Primary; [phone] (Work) Hyperlipidemia On Treatment; [phone] Flutter A trial ([facility]) Social History Tobacco Use Types Packs/Day Years [...] [facility], here in [place]. reports that Ed has been having more [...] Diabetes Mellitus Type 2 With Diabetic Neuropathy ([facility]) Last A1c at goal at 5.7%. #2 Diabetes Mellitus Type 2 Ulcer Foot ([facility]) Recommended that they stop using Vaseline as [...] PT. #4 Fracture Hip Closed Initial Left ([facility]) Continue with PT and orthopedics. #5 Anemia [...] is not taking meds. #9 Flutter Atrial ([facility]) Pacemaker in place. Not on anticoagulation. Plan [...] Electronically Signed: lidia Ag. 11/08/2019. 7:29 PM KITCHEN STEWARD . I, Kevin Copeland M.D., personally performed the services described in this documentation.All medical record entries made by the scribe were at my direction and in my presence. I have reviewed the chart and discharge instructions (if applicable) and agree that the record reflects my personal performance and is accurate and complete. Kevin Copeland M.D. . 11/09/2019. 9:53 PM KITCHEN STEWARD. HEN STEWARD documented in this encounter Miscellaneous Notes Addendum Note - Kevin Bullock M.D. - 11/08/2019 5:30 PM KITCHEN STEWARD Addended by: KEVIN BULLOCK on: 11/19/2019 11:54 [...] supplements. ??If the result does not [facility] clinical observations, repeat testing after patient refrains fr om the use of supplements for at least 12 hours. Specimen Anatomical Collection Method Collection Time Receive d Time (Source) Location / / Volume Laterality Blood (Blood, 12/18/2020 7:49 PM 12/20/19 Venous) CDT 12:42 PM CDT Kevin Copeland M.D. LAB BLOOD ADD-ON Performing Organization Address City/State/ZIP Code Phon e Number [facility] [address] [place], [place] [address] [facility] [place] [address] System in [place] 70 Juju Good Lipid Panel (12/18/2020 7:49 [...] City/State/ZIP Code Phon e Number [facility]- [address] [place] [address] [address] [place] [address] [place] [address] [address] (ABNORMAL) Basic Metabolic Panel (12/18/2020 7:49 [...] CDT eGFR-Black/Afri >90 >=60 12/18/2020 CNFL can Slovenian mL/min/BSA 8:31 PM CDT Comment: ----ADDITIONAL INFORMATION---- [...] City/State/ZIP Code Phon e Number [facility]- [address] [place] [address] [place] [address] System [address] (ABNORMAL) CBC without Differential (12/18/2020 7:48 [...] City/State/ZIP Code Phon e Number [facility]- [address] [place] [address] [place] [address] System in [address] Hemoglobin A1c (12/18/2020 7:48 PM CDT) P athologist Signature Hemoglobin A1c, 5.3 4.2 - 5.6 12/18/2020 CNFL B % 8:33 PM CDT Specimen Anatomical Collection Method Collection Time Receive d Time (Source) Location / / Volume Laterality Blood (Blood, 12/18/2020 7:48 PM 12/19/19 21 8:07 Venous) CDT PM CDT Kevin Copeland M.D. LAB BLOOD ADD-ON Performing Organization Address City/State/[facility] Code Phon e Number [facility] [address] [place] [address] [place] [address] System in [place] [address] [address] 25-Hydroxyvitamin D2 and D3 (12/18/2020 7:48 [...] and its performa nce characteristics determined by [facility] in a manner consistent with CLIA requirements. This test has not been cleared or approved by the [place] d and Drug Administration. Specimen Anatomical Collection Method Collection Time Receive d Time (Source) Location / / Volume Laterality Blood (Blood, 12/18/2020 7:48 PM 12/21/19 7:59 Venous) CDT AM CDT Kevin Copeland M.D. LAB BLOOD ADD-ON Performing Organization Address City/State/ZIP Code Phon e Number [facility] [address] [place], [place] [address] [place] [address] [place] [address] Laboratory Medicine and Pathology [address] [place] BMD Bone Density Spine Hips (11/09/2019 3:05 PM KITCHEN STEWARD) Anatomical Region Laterality Modality Hip, Lumbar Spine, Nuclear Medicine RST LOS, N/A Radiographic Imaging Musculoskeletal ARZ LOS, Muskuloskeletal FLA LOS Specimen (Source) Anatomical Collection Method Collection Time Re ceived Time Location / / Volume Laterality 11/09/2019 3:29 PM KITCHEN STEWARD Impressions 11/09/2019 3:31 PM KITCHEN STEWARD Osteoporosis. Narrative 11/09/2019 3:31 PM KITCHEN STEWARD EXAM: BMD BONE DENSITY SPINE HIPS COMPARISON: None. Buildings And Grounds Director/Model: [employer] FINDINGS: ?? LUMBAR SPINE L1-L4 included unless [...] BMD BONE DENSITY SPINE HIPS COMPARISON: None. Buildings And Grounds Director/Model: [employer] FINDINGS: LUMBAR SPINE L1-L4 included unless otherwise [...] documented as of this encounter Care Teams Drying Machine Operator Relationship Specialty Start Date End Date Kevin Bullock M.D. PCP - General 02/19/17 02/20/[address] [address] documented as of this encounter
--- OUTSIDE RECORDS SUMMARY | 2022-08-05 10:13 | XMS_ITS | Encounter Summary ---
:1960 Author Organization [facility] Address [address] [place] [address] Care Team Providers Name Role Phone Cintia Cobb M.D. Primary Care Provider [phone] Reason for Visit Physical Therapy (Routine) - Canceled Specialty Diagnoses / Procedures Referred By Contact Refer red To Contact Diagnoses Follow Up Examination Postoperative Visit Fracture Hip Intertrochanteric Closed Initial Left (HCC) Kacie Huerta APRN, [facility] Procedures PT Ongoing treatment C.N.P., D.N.P. [address] [place] [address] Referral ID Status Reason Start Date Expiration Date Visits V isits Requested Authorized [id number] Canceled 10/13/2019 10/12/2020 99 99 Encounter Details Date Type Department Care Team Description 10/25/2019 Clinical Department of Kacie Huerta APRN, C.N.P., D.N.P. [address] [place] [phone] Follow Up Examination Postoperative Visi t; Support Rehabilitation Lesli Dias P.TPili [address] [place] [phone] Fracture Hip Intertrochanteric Closed In itial Left (HCC) Services in [address] [place] [address] Social History Tobacco Use Types Packs/Day Years [...] Date: 08/12/19 Payor: [facility] CARE / Plan: [facility] BLUE PLUS HMO / Product Type: Medicaid HMO / No data recorded Epic Visit Count: 4 Patient comments: no new complaints. [facility] the [facility] to work on his home exerciseprogram. OBJECTIVE Pain: controlled TREATMENT Treatment today consisted of: Reviewed precautions at length today. Patient verbalized understanding. Perform the [employer]-Fit Total body ergometer times 10 minutes at [...] P.T. Department of Rehabilitation Services in [address] [address] Dept: [phone] UNITY FACILITATOR documented in this encounter Plan of Treatment Not on filedocumented as of this encounter Visit Diagnoses Diagnosis Follow Up Examination Postoperative Visi t Fracture Hip Intertrochanteric Closed In itial Left (HCC) documented in this encounter Additional Health Concerns Assessment Noted Time PHQ-9 Depression Total Score: 18 02/14/2013 9:53 AM CD T documented as of this encounter Care Teams Reducing Machine Operator Relationship Specialty Start Date End Date Cintia Cobb M.D. PCP - General 02/19/17 02/20/[address] [place] [phone] documented as of this encounter
--- OUTSIDE RECORDS SUMMARY | 2022-08-05 10:13 | XMS_ITS | Encounter Summary ---
:1960 Author Organization [facility] Address [address] [place] [address] Care Team Providers Name Role Phone Cintia Cobb M.D. Primary Care Provider [phone] Reason for Visit Reason Onset Date Comments Coding 09/15/2019 Encounter Details Date Type Department Care Team Description 09/15/2019 Clinical Communication Department of [facility] Yady donahue, [facility] Medicine, Jose Daniel Piper M.D. [facility], [address] [address] [place], [place] [phone] (Work) [phone] Social History Tobacco Use Types Packs/Day Years [...] ICD 10 code for patients Mepilex script. RAMP SERVICE MAN Telephone Encounter - Eli Enrique - 09/15/2019 3:11 PM CST Tiffany is needing the ICD 10 code for billing on the Mepilex that was prescribed for Ed on 09-12-2019. Please call pharmacy with information, Thanks RAMP SERVICE MAN documented in this encounter Plan of Treatment Not on filedocumented as of this encounter Visit Diagnoses Diagnosis Fracture Hip Closed Initial Left (HCC) - Primary documented in this encounter Additional Health Concerns Assessment Noted Time PHQ-9 Depression Total Score: 18 02/14/2013 9:53 AM CD T documented as of this encounter Care Teams Warehouse Inventory Clerk Relationship Specialty Start Date End Date Cintia Cobb M.D. PCP - General 02/19/17 02/20/[address] [place] [phone] documented as of this encounter
--- OUTSIDE RECORDS SUMMARY | 2022-08-05 10:13 | XMS_ITS | Encounter Summary ---
:1960 Author Organization [facility] Address [address] [place] [address] Care Team Providers Name Role Phone Cintia Cobb M.D. Primary Care Provider [phone] Encounter Details Date Type Department Care Team Description 11/02/2019 Orders Only Department of [facility] Closed Medicine, Jose Daniel Piper M.D. Initial Left (HCC) [facility], [place] [address] (Primary Dx) [address] [address] [place], [place] [phone] (W ork) [address] [phone] Social History Tobacco Use Types Packs/Day Years Used Date Smoking Tobacco: Never Smokeless Tobacco: Never Alcohol Use Standard Drinks/Week Comments No 0 (1 standard drink = 0.6 oz pure alcoho l) Sex Assigned at Date Recorded Not on file documented as of this encounter Plan of Treatment Not on filedocumented as of this encounter Results DX Hip Left 2-3 Views (11/07/2019 2:58 PM SECTION CUTTER) Anatomical Region Laterality Modality Lower Extremity, Hip, Musculoskeletal RST LOS, Left Digital Radiography Musculoskeletal ARZ LOS, Muskuloskeletal FLA LOS Specimen (Source) Anatomical Collection Method Collection Time Re ceived Time Location / / Volume Laterality 11/07/2019 3:14 PM SECTION CUTTER Impressions 11/07/2019 3:15 PM SECTION CUTTER Postop changes prior IM ovidio, nail fixation [...] Hardware is intact Narrative 11/07/2019 3:15 PM SECTION CUTTER EXAM: DX HIP LEFT 2-3 VIEWS COMPARISON: [...] as of this encounter Care Teams Business Development Sales Executive Relationship Specialty Start Date End Date Cintia Cobb M.D. PCP - General 02/19/17 02/20/[address] [place] [phone] documented as of this encounter
--- OUTSIDE RECORDS SUMMARY | 2022-08-05 10:13 | XMS_ITS | Encounter Summary ---
:1960 Author Organization [facility] Address [address] [place] [address] Care Team Providers Name Role Phone Cintia Cobb M.D. Primary Care Provider [phone] Encounter Details Date Type Department Care Team Description 10/04/2019 Hospital Encounter Department of Kacie Huerta Follo w Up Examination Radiology in [facility], C.N.P., Postope rative Visit [place], [place] D.N.P. [address] [place] [phone] Social History Tobacco Use Types Packs/Day [...] this PELVIS LEFT 2-3 (most inpatients PM GLASSWARE VERIFIER Examination procedur e are in VIEWS and all Postoperative Visit the resu lts outpatients) section. documented in this encounter Results DX Hip And Pelvis Left 2-3 Views (10/04/2019 3:58 PM GLASSWARE VERIFIER) Anatomical Region Laterality Modality Lower Extremity, Pelvis, Hip, Musculoskeletal RST LOS, Left Digital Radiography Musculoskeletal ARZ LOS, Muskuloskeletal FLA LOS Specimen (Source) Anatomical Collection Method Collection Time Re ceived Time Location / / Volume Laterality 10/04/2019 4:42 PM GLASSWARE VERIFIER Impressions 10/04/2019 4:43 PM GLASSWARE VERIFIER Prior surgical fixation across a subacute fracture of the intertrochanteric left femur. The fractu re line remains visible with interval healing change. No evidence of hardware loosening. Negative for acute fracture. Degenerative changes at the lumbosacral junction, both SI joints, and right hip. Demineralization. Narrative 10/04/2019 4:43 PM GLASSWARE VERIFIER EXAM: DX HIP AND PELVIS LEFT 2-3 [...] documented as of this encounter Care Teams Editor News Relationship Specialty Start Date End Date Cintia Cobb M.D. PCP - General 02/19/17 02/20/[address] [phone] documented as of this encounter
--- OUTSIDE RECORDS SUMMARY | 2022-08-05 10:13 | XMS_ITS | Encounter Summary ---
:1960 Author Organization [facility] Address [address] [place] [address] Care Team Providers Name Role Phone Cintia Cobb M.D. Primary Care Provider [phone] Reason for Referral Outpatient (Routine) - Closed Specialty Diagnoses / Procedures Referred By Contact Refer red To Contact Orthopedic Surgery Diagnoses Follow Up Examination Postoperative Visit John Norman, [facility] [place] [address] Referral ID Status Reason Start Date Expiration Date Visits Requ ested Visits Authorized [id number] Closed 08/16/2019 08/15/2020 1 1 LAB Encounter Details Date Type Department Care Team Description 08/16/2019 Orders Only Department of Keyla Lopez, Follow Up Examination Orthopedic Surgery in [place] Postoperative Visit [place] [phone] (Primary Dx) [address] (Work) [place] [address] Social History Tobacco Use Types Packs/Day [...] Cobb M.D. PCP - General 02/19/17 02/20/[address] [phone] documented as of this encounter
--- OUTSIDE RECORDS SUMMARY | 2022-08-05 10:13 | XMS_ITS | Encounter Summary ---
:1960 Author Organization [facility] Address [address] [place] [address] Care Team Providers Name Role Phone Cintia Cobb M.D. Primary Care Provider [phone] Reason for Visit Physical Therapy (Routine) - Canceled Specialty Diagnoses / Procedures Referred By Contact Refer red To Contact Diagnoses Follow Up Examination Postoperative Visit Fracture Hip Intertrochanteric Closed Initial Left (HCC) Kacie Huerta APRN, [facility] Procedures PT Ongoing treatment C.N.P., D.N.P. [address] [place] [address] Referral ID Status Reason Start Date Expiration Date Visits V isits Requested Authorized [id number] Canceled 10/13/2019 10/12/2020 99 99 Encounter Details Date Type Department Care Team Description 11/03/2019 Clinical Department of Kacie Huerta APRN, C.N.P., D.N.P. [address] [place] [id number] Follow Up Examination Postoperative Visi t; Support Rehabilitation Lesli Dias P.TPili [address] [place] [phone] Fracture Hip Intertrochanteric Closed In itial Left (HCC) Services in [address] [place] [address] Social History Tobacco Use Types Packs/Day Years [...] eval and treat Onset Date: 08/12/19 Payor: [facility] CARE / Plan: [facility] BLUE [employer] HMO / Product Type: Medicaid HMO / [...] TREATMENT Treatment today consisted of: Performed the Enablon-Fit total body ergometer x 8 minutes level [...] Total Treatment Time (min): 27 min Lesli iDas P.T. Department of Rehabilitation Services in [address] [address] Dept: [phone] [employer]ING INSPECT[employer] documented in this encounter Plan of Treatment Not on filedocumented as of this encounter Visit Diagnoses Diagnosis Follow Up Examination Postoperative Visi t Fracture Hip Intertrochanteric Closed In itial Left (HCC) documented in this encounter Additional Health Concerns Assessment Noted Time PHQ-9 Depression Total Score: 18 02/14/2013 9:53 AM CD T documented as of this encounter Care Teams Floor Helper Relationship Specialty Start Date End Date Cintia Cobb M.D. PCP - General 02/19/17 02/20/[address] [place] [phone] documented as of this encounter
--- OUTSIDE RECORDS SUMMARY | 2022-08-05 10:13 | XMS_ITS | Encounter Summary ---
:1960 Author Organization [facility] Address [address] [place] [address] Care Team Providers Name Role Phone Cintia Cobb M.D. Primary Care Provider [phone] Encounter Details Date Type Department Care Team Description 10/14/2019 Orders Only Department of Mitzi Williamson I., Wound Toe Without Infusion Therapy in [place] Damage To Nail Open [address] Subsequent (Primary [place], [place]) [id number] [phone] [place] [address] Social History Tobacco Use Types Packs/Day [...] as of this encounter Care Teams Photographic Double Relationship Specialty Start Date End Date Cintia Cobb M.D. PCP - General 02/19/17 02/20/[address] [place], [place] [address] [address] documented as of this encounter
--- OUTSIDE RECORDS SUMMARY | 2022-08-05 10:13 | XMS_ITS | Encounter Summary ---
:1960 Author Organization [facility] Address [address] [place] [address] Care Team Providers Name Role Phone Cintia Cobb M.D. Primary Care Provider [phone] Reason for Visit Auth/Cert Specialty Diagnoses / Procedures Referred By Contact Refer red To Contact Diagnoses Pain Joint Fracture Hip Closed Initial Left (HCC) Hip Fracture Procedures n/a Referral ID Status Reason Start Date Expiration Date Visits Requ ested Visits Authorized [id number] 1 1 Encounter Details Date Type Department Care Team Description 08/12/2019 - Hospital Encounter [facility] Dumont, Ed Angélica Oakes [address] [place] [id number] Fracture Hip Closed Initial Left (HCC) ( Primary Dx); 08/16/2019 [facility] Rahel Ashby M.D. [address] [place] [phone] [facility], Third Floor [address] [place] [address] Social History Tobacco Use Types Packs/Day Years Used Date Smoking Tobacco: Never Smokeless Tobacco: Never Alcohol Use Standard Drinks/Week Comments No 0 (1 standard drink = 0.6 oz pure alcoho l) Sex Assigned at Date Recorded Not on file documented as of this encounter Last Filed Vital Signs Vital Sign Reading Time Taken Comments Blood Pressure 110/73 08/16/2019 3:21 AM DELINQUENT ACCOUNT CLERK Pulse 77 08/15/2019 8:09 PM DELINQUENT ACCOUNT CLERK Temperature 36.9 ??C (98.4 ??F) 08/16/2019 3:21 AM DELINQUENT ACCOUNT CLERK Respiratory Rate 16 08/16/2019 3:21 AM DELINQUENT ACCOUNT CLERK Oxygen Saturation 95% 08/16/2019 3:21 AM DELINQUENT ACCOUNT CLERK Inhaled Oxygen Concentration - - Weight 80.2 kg (176 lb 12.9 oz) 08/16/2019 5:00 AM DELINQUENT ACCOUNT CLERK Height 182.9 cm (6') 08/12/2019 12:43 PM DELINQUENT ACCOUNT CLERK Body Mass Index 23.98 08/12/2019 12:43 PM DELINQUENT ACCOUNT CLERK documented in this encounter Discharge Summaries Laz Dumont M.D. - 08/16/2019 12:00 PM CST DISCHARGE SUMMARY BRIEF OVERVIEW Discharge Provider: Laz Dumont M.D. Primary Care Providers: Cintia Cobb M.D. ([address] [address] Primary Care Provider Primary Care Provider Other [...] INTERNAL FIXATION LEFT FEMUR John Norman M.D. 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 Had surgery for repair on August 13 [...] and needs to get back to driving [place] a soon as possible to help with [...] 45 minutes discharge care by me today NQUENT ACCOUNT CLERK documented in this encounter Discharge Instructions Discharge Instr - Non [place] Eyqpci-KgbRbhmnc-Qmvwkxnuuk, Becky - 08/16/2019 12:01 PM CST Please have Patient seen by PCP on rounds in 3-5 days. NQUENT ACCOUNT CLERK documented in this encounter Medications at Time [...] L hip fx Onset Date: 08/12/19 Payor: DOVRAY Anna Lozabai [facility] [place] CARE / Plan: [facility] BLUE [facility] HMO / Product Type: Medicaid [...] min Functional G-code Worksheet Marya Paredes P.T.A. [facility], Third Floor [address] [facility] [address] Dept: [phone] NQUENT ACCOUNT CLERK Associated attestation - Stephanie Diaz PLainey - 08/18/2019 7:58 AM DELINQUENT ACCOUNT CLERK Physical Therapy Dismissal Snapshot Patient was seen [...] Cristobal, and Dr. Dumont. SWS confirmed with [facility] that thereare no beds today. [...] to go to short term rehab at [address] [place] [address] in [place] today. Ed contacted his , Julissa and confirmed that his friend can not transport until 3pm or later. SWS spoke with [facility]/[address] [place] [address] admissions and confirmed discharge today, by 12noon. Nurse Cristobal completed the Nurse to Nurse. SWS contacted [facility] and [facility] and they both are not available for transport today. SWS contacted [employer] and set up 12noon to transport. O: Discharge Planning for today to arrive no later than 3pm to [address] [place] [address] A: Ed was fully engaged in our conversation and open to going to a SNF upon discharge to decrease the time he is away from work for recovery. P: Discharge today - NQUENT ACCOUNT CLERK Laz Dumont M.D. - 08/15/2019 12:00 PM [...] Wants to return to work as a truck spotter soon as possible because of his truck [...] days. Patient definitely not interested in a custodial after hospitalization, particularly with experiences his mother had in jail facilities. Ed used a [employer] in [place] to start letter correspondences with dozens of Filipina women around 2003. Julissa, his , is from [facility] near active [facility] 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 Had surgery for repair on August 13 [...] help I still recommend it. He skipped Q52uhqpr last few months (thinks they cause diarrhea [...] he makes big strides he likely needs jail help. He is not open to discussing this and fired the child protective services social worker today.(he fired me over a [...] care. Spoke with nurse, PT, social work. NQUENT ACCOUNT CLERK Marya Paredes P.T.A. - 08/15/2019 11:26 AM CST Physical Therapy Inpatient Treatment SUBJECTIVE Patient's Name: Laz Cuauhtemoc Davilat Referring/Attending Provider: Rahel Ashby M.D. Medical Diagnosis: Pain Joint [M25.50] Fracture Hip Closed Initial Left (HCC) [S72.002A] Reason for Referral: L hip fx Onset Date: 08/12/19 Payor: [employer] [place] CARE / Plan: [employer] HMO / Product Type: Medicaid HMO / [...] in use of gait belt as leg plate glass installer helper to assist left LE to edge of [...] min Functional G-code Worksheet Marya Paredes P.T.A. [facility], Third Floor [address] [facility] [address] Dept: [phone] NQUENT ACCOUNT CLERK Ml Ha L.S.W. - 08/15/2019 11:10 AM [...] SWS passed this information onto Hillary Sotomayor/Nurse Account Support Associate. SWS Shared with Ed that a person [...] that he is not interested in any custodial or and followed up with [address] [place] [address]/ Nathalia [phone]., Fax: [phone]. O: Discharge planning continued, Ed was sitting up in the chair and fully engaged in the conversation A: Ed enjoys sarcastic humor and consistent communication. Ed becomes frustrated if he feels he is being misinformed. P: Discharge likely tomorrow, per Dr. Dumont. Transport to be determined. NQUENT ACCOUNT CLERK Kacie Huerta APRN, C.N.P., D.N.P. - 08/15/2019 [...] aware. Will have him follow up in [place] with Orthopedics in 2 weeks. 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 Patient definitely not interested in a custodial after hospitalization, particularly with experiences his mother had in jail facilities. Ed used a [employer] in [place] to start letter correspondences with dozens of Filipina women around 2003. Julissa, his , is from [facility] near active [facility] 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 Had surgery for repair on August 13 [...] with patient, 2 visits so far today. NQUENT ACCOUNT CLERK Lacie Donaldson PSilvano. - 08/13/2019 12:48 PM CST Attempted to get patient up today. Patient continues to have numbness in legs. Will wait to start PTtomorrow 08/14/19. NQUENT ACCOUNT CLERK Alyssa [facility] O.T. - 08/13/2019 11:43 AM [...] mg (LOVENOX) 08/14/2019 40 mg, subcutaneous, Daily NQUENT ACCOUNT CLERK documented in this encounter H&P Notes John [...] precede with surgical treatment. John Norman M.D. NQUENT ACCOUNT CLERK Source Note - Juliette Bettencourt APRN, C.N.P., D.N.P. - 08/12/2019 2:22 PM DELINQUENT ACCOUNT CLERK SUBJECTIVE CHIEF COMPLAINT Mr. Laz Luna is a 59 y.o. male who presents with left hip pain. HISTORY OF PRESENT ILLNESS Patient transferred from [facility] emergency room this afternoon. Patient works by [employer] and fell on ice while loading his [...] but plans on getting a ride to [facility] tomorrow. Patient scheduled for the following [...] Procedure: ESOPHAGOGASTRODUODENOSCOPY; Surgeon: Rene Carlson M.D.; Location: [facility] GI LAB ??? LAPAROSCOPIC ASSISTED [...] education level: None Occupational History ??? 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 Financial [...] on phone: None Gets together: None Attends worship service: None Active member of club or [...] labs, xray and diagnostics from admission and [facility] ED. ASSESSMENT / PLAN #1 Fracture Hip Intertrochanteric Closed Initial Left (HCC) Dr Norman orthopedics accepting patient, plan is for surgery 08/13/2019 Follow orthopedic recommendations #2 History Of Falling Fall precautions in place Ambulate with assistance #3 Diabetes Mellitus Type 2 ([facility]) Accucheck BID, Novolog BID Hypoglycemic measures in [...] of plan of care, chart review, and dbpp-ob-mqqo interview. NQUENT ACCOUNT CLERK Juliette Bettencourt APRN, C.N.P., D.N.P. - 08/12/2019 2:22 PM CST SUBJECTIVE CHIEF COMPLAINT Mr. Laz Luna is a 59 y.o. male who presents with left hip pain. HISTORY OF PRESENT ILLNESS Patient transferred from [facility] emergency room this afternoon. Patient works by [employer] and fell on ice while loading his [...] but plans on getting a ride to [facility] tomorrow. Patient scheduled for the following [...] Procedure: ESOPHAGOGASTRODUODENOSCOPY; Surgeon: Rene Carlson M.D.; Location: [facility] GI LAB ??? LAPAROSCOPIC ASSISTED [...] education level: None Occupational History ??? 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 Financial [...] on phone: None Gets together: None Attends worship service: None Active member of club or [...] labs, xray and diagnostics from admission and [facility] ED. ASSESSMENT / PLAN #1 Fracture Hip [...] of plan of care, chart review, and enyq-ex-rfim interview. NQUENT ACCOUNT CLERK documented in this encounter Consult Notes Alyssa [...] L hip fx Onset Date: 08/12/19 Payor: [facility] CARE / Plan: [facility] HMO / Product Type: Medicaid [...] Procedure: ESOPHAGOGASTRODUODENOSCOPY; Surgeon: Rene Carlson M.D.; Location: [facility] GI LAB ??? LAPAROSCOPIC ASSISTED - GASTRIC BYPASS N/A 11/21/2014 Laparoscopic assisted - Gastric bypass ??? OPEN REDUCTION INTERNAL FIXATION FEMUR Left 08/13/2019 Procedure: OPEN REDUCTION INTERNAL FIXATION LEFT FEMUR; Surgeon: John Norman M.D.; Location:[facility] OR ??? OTHER CONVERTED SHX (SEE COMMENT) N/A 01/19/2017 >Implantation of dual-chamber permanent pacemaker. ??? OTHER SURGICAL HISTORY cystoscopy ??? UPPER GASTROINTESTINAL ENDOSCOPY N/A 11/21/2014 Upper gastrointestinal endoscopy History of Present Illness: Patient slipped and fell on the ice. 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 [facility]'s 3-year data, as reported at [facility] 2017, indicates a cut off of 39.4 or greater in daily activity is a fair to good accurate prediction of discharge home. Source: AM-PAC ???6 -Clicks?? functional assessment scores predict acute care hospital discharge destination. Medical Charge Entry Specialist. 2014 May; 94 (9): 1257-61. 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 Currently, patient presents with impairments including R hip fx c ORIF completed 08/13/19 resulting in the following functional deficits: impaired ADL/IADL and functional/ADL transfers. Laz Luna is a 59 y.o. year old direct admit to [facility] [place] [facility] following a fall on ice resulting in R hip fracture requiring ORIF completed 08/13/19, admission 08/12/19. Today, Mr. Laz Luna actively participated in education regarding regaining PLOF c basic ADL. Educated in WBAT status. Educatedin adaptive equipment for regaining self care independence. Reports has long tank crewmember and long shoe horn at home from [...] toileting safety in a.m. Bathroom Safety Sheet [id number] provided as patient education with recommendations written [...] Daily Activities CMS Modifier: MARYJO [facility] O.T. [facility], Third Floor [address] [facility] [address] Dept: [phone] NQUENT ACCOUNT CLERK Lacie Donaldson P.T. - 08/14/2019 10:45 AM CST Consults Physical Therapy Inpatient Evaluation/Treatment SUBJECTIVE Patient's Name: Laz Luna Referring/Attending Provider: Rahel Ashby M.D. Medical Diagnosis: Pain Joint [M25.50] Fracture Hip Closed Initial Left (HCC) [S72.002A] Reason for Referral: L hip fx Onset Date: 08/12/19 Payor: [facility] CARE / Plan: [facility] HMO / Product Type: Medicaid HMO / [...] Procedure: ESOPHAGOGASTRODUODENOSCOPY; Surgeon: Rene Carlson M.D.; Location: [facility] GI LAB ??? LAPAROSCOPIC ASSISTED - GASTRIC BYPASS N/A 11/21/2014 Laparoscopic assisted - Gastric bypass ??? OTHER CONVERTED SHX (SEE COMMENT) N/A 01/19/2017 >Implantation of dual-chamber permanent pacemaker. ??? OTHER SURGICAL HISTORY cystoscopy ??? UPPER GASTROINTESTINAL ENDOSCOPY N/A 11/21/2014 Upper gastrointestinal endoscopy History of Present Illness: Patient slipped and fell on the ice. 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 [facility], Third Floor [address] [facility] [address] Dept: [phone] NQUENT ACCOUNT CLERK Ml Ha L.S.W. - 08/12/2019 3:45 PM CST Discharge Planning Assessment SUBJECTIVE Referral Data Referral Source: Early Screen for Discharge Planning Referral Reason: (59 year old, Admit Diagnosis: Hip Fracture) Who was present during the interview?: Patient Boat Tester Services Used: No Psychosocial assessment, Coping, adjustment [...] Patient Information Primary Caregiver: Self(Spouse Julissa h: [phone], c:[phone], supportive neighbors and friends) Legal Information Legal [...] to transport upon discharge) Finance/Insurance Primary insurance: [employer] Secondary insurance: N/A Does the Patient have [...] the basement) Support Systems: (Spouse Julissa h: [phone], c:[phone], supportive neighbors and friends) Anticipated Discharge Destination: [...] he could likely do outpatient PT in [place] at [address] [place] [address], if he would prefer a location closer than [facility]. He stated that he may prefer to stay in the [place] [facility] and [facility] is the closest. He stated that he is open to SWS sending a referral to [address] [place] [address] to determine if they have the ability to do outpatient PT for him or any other services. SWS received notice from [address] [place] [address] has accepted him for admission for short term rehab. SWS sent a message to [address] [place] [address] asking what outpatient PT services they provide. [...] needed. Signed by: Maria Guadalupe Feng 08/12/2019 NQUENT ACCOUNT CLERK documented in this encounter Nursing Notes Anika [...] as needed- d/c to 3 links in [place]. Denise Morris RPiliN. - 08/16/2019 5:16 AM [...] Tylenol & Oxycodone for adequate pain control. NQUENT ACCOUNT CLERK Desirae Veras R.N. - 08/14/2019 6:39 PM [...] CST PAS completed and sent to [facility]. PAS [id number] Hanny Hart R.N. - 08/13/2019 10:24 AM CST Patient became very agitated with nurse after she called him sir at the beginning of shift. Patient requested that he has a new nurse. Wharfmaster was notified and spoke to the patient [...] Patient remained free of falls this shift. NQUENT ACCOUNT CLERK documented in this encounter OR Notes Op Note - John Norman M.D. - 08/13/2019 7:48 AM CST FULL OP NOTE Procedure(s) (LRB): OPEN REDUCTION INTERNAL FIXATION LEFT FEMUR (Left) Surgeon(s) and Role: * John Norman M.D. - Primary Health Advocate: Lesli Zuñiga L.P.N. Anesthesia Type Regional Pre-operative Diagnosis Fracture Hip Intertrochanteric Closed Initial Left (HCC) Post-operative Diagnosis Fracture Hip Intertrochanteric Closed Initial Left (HCC) Full Operative Note Details PROCEDURE(S) Open reduction, intramedullary fixation of left intertrochanteric femur fracture. SURGEON(S) John Norman M.D. FORMULA CHECKER: None. ANESTHESIA TYPE Spinal anesthesia. PRE-OPERATIVE DIAGNOSIS [...] closed using #1 Vicryl in an interrupted xtkscy-dl-uzqwi fashion, followed by copious irrigation. Subcutaneous tissue [...] Implant Name Type Inv. Item Serial No. Warehouse Processor Lot No. LRB No. Used NL FEM TFN RT [id number] - SNA - [id number] Hardware e.g. pins/screws/rods NL FEM TFN RT [id number] NA Depuy Synthes [id number] Left [address] 10.5X110 - SNA - [id number] Hardware e.g. pins/screws/rods SCRW TFN FEN ST 10.5X110 NA Depuy Synthes [id number] Left 1 SCRW LCK [facility] TI T25 5X38 - [id number] Hardware e.g. pins/screws/rods SCRW [facility] T25 5X38 Depuy Synthes Left 1 Intra-op Medications Date/Time Order Dose Route Action Action by 08/13/2019 0901 ceFAZolin in NaCl 0.9 % IVPB 2 g (ANCEF) intravenous Anesthesia Volume Adjustment Kalia Luna 08/13/2019 0727 ceFAZolin in NaCl 0.9 % IVPB 2 g (ANCEF) 2 g intravenous Given Kalia Luna M.D. NQUENT ACCOUNT CLERK Brief Op Note - John Norman M.D. - 08/13/2019 7:48 AM CST BRIEF OP NOTE Procedure(s) (LRB): OPEN REDUCTION INTERNAL FIXATION LEFT FEMUR (Left) Surgeon(s) and Role: * John Norman M.D. - Primary Health Advocate: Lesli Zuñiga L.P.N. Anesthesia Type Regional Pre-operative Diagnosis Fracture Hip Intertrochanteric Closed Initial Left (HCC) Post-operative Diagnosis Fracture Hip Intertrochanteric Closed Initial Left (HCC) Brief Operative Note Details Specimens None Drains None Estimated Blood Loss None Implants Implant Name Type Inv. Item Serial No. Warehouse Processor Lot No. LRB No. Used NL FEM TFN RT [id number] - SNA - [id number] Hardware e.g. pins/screws/rods NL FEM TFN RT 130D [id number] NA [employer] [id number] Left [address] 10.5X110 - SNA - [id number] Hardware e.g. pins/screws/rods SCRW TFN FEN ST 10.5X110 NA [employer] [id number] Left 1 SCRW LCK [employer] TI T25 5X38 - [id number] Hardware e.g. pins/screws/rods SCRW LCK [employer] TI T25 5X38 [employer]ynthe[employer] Left 1 John Norman M.D. NQUENT ACCOUNT CLERK documented in this encounter Miscellaneous Notes Hospital Course - Rahel Ashby M.D. - 08/13/2019 12:26 PM CST 59 y/o male who presented to the ED with left hip pain workup revealed nondisplaced left intertrochanteric trochanteric fracture. Patient also has anemia of chronic disease 08/13 s/p ORIF, trend hemoglobin. NQUENT ACCOUNT CLERK documented in this encounter Plan of Treatment Not on filedocumented as of this encounter Procedures Procedure Name Priority Date/Time Associated Diagnosis Comme nts ADULT OXYGEN Routine 08/15/2019 8:00 THERAPY AM DELINQUENT ACCOUNT CLERK ADULT OXYGEN Routine 08/14/2019 8:01 THERAPY PM DELINQUENT ACCOUNT CLERK ADULT OXYGEN Routine 08/14/2019 8:01 THERAPY AM DELINQUENT ACCOUNT CLERK IRON AND TOT Routine 08/14/2019 6:00 Results for IRON-BINDING AM DELINQUENT ACCOUNT CLERK this procedure CAPACITY, S/P are in the results section. HEMOGLOBIN, B Routine 08/14/2019 6:00 Results for AM DELINQUENT ACCOUNT CLERK this procedure are in the results section. VITAMIN B12 Routine 08/14/2019 6:00 Results for ASSAY, S AM DELINQUENT ACCOUNT CLERK this procedure are in the results section. ADULT OXYGEN Routine 08/13/2019 8:01 THERAPY PM DELINQUENT ACCOUNT CLERK ADULT OXYGEN Routine 08/13/2019 9:13 THERAPY AM DELINQUENT ACCOUNT CLERK ADULT OXYGEN Routine 08/13/2019 9:13 THERAPY AM DELINQUENT ACCOUNT CLERK FL FLUORO LESS RAD - Routine 08/13/2019 8:43 Results f or THAN 1 HOUR (most inpatients AM DELINQUENT ACCOUNT CLERK this proced ure and all are in the outpatients) results section. OPEN REDUCTION 08/13/2019 7:07 Fracture Hip INTERNAL AM DELINQUENT ACCOUNT CLERK Intertrochanteric FIXATION FEMUR Closed Initial Left (HCC) CBC WITH Routine 08/13/2019 6:06 Results for DIFFERENTIAL, B AM DELINQUENT ACCOUNT CLERK this procedu re are in the results section. GLUCOSE POCT, B Routine 08/13/2019 4:27 Results f or AM DELINQUENT ACCOUNT CLERK this procedure are in the results section. HEMOGLOBIN A1C, Routine 08/12/2019 1:17 Results f or B PM DELINQUENT ACCOUNT CLERK this procedure are in the results section. documented in this encounter Results (ABNORMAL) Vitamin B12 Assay (08/14/2019 6:00 AM DELINQUENT ACCOUNT CLERK) Analysis Performed At Patho logist Time Signature Vitamin B12 >2000 (H) 232 - 1245 08/14/2019 ECLR Assay, S ng/L 3:11 PM DELINQUENT ACCOUNT CLERK Comment: Biotin has been identified by the jyoti cabreraurer as a potential interfering substance. ??Higher concentr ations of biotin may be found in multivitamins, hair/nail supple ments, and workout supplements. ??If the result does not [facility] clinical observations, repeat testing after patient refrains fr om the use of supplements for at least 12 hours. Specimen Anatomical Collection Method Collection Time Receive d Time (Source) Location / / Volume Laterality Blood (Blood, 08/14/2019 6:00 AM 08/14/20 19 2:21 Venous) DELINQUENT ACCOUNT CLERK PM DELINQUENT ACCOUNT CLERK Ed L Dumont M.D. LAB BLOOD ADD-ON Performing Organization Address City/[facility]/ZIP Code Phon e Number [facility]- [address] [place] [address] [phone] [facility] [place] [address] System in [address] (ABNORMAL) Iron and Total Iron-Binding Capacity (08/14/2019 6:00 AM DELINQUENT ACCOUNT CLERK) P athologist Signature Iron 15 (L) 50 - 150 08/14/2019 [facility] mcg/dL 6:49 AM DELINQUENT ACCOUNT CLERK Total Iron 260 250 - 400 08/14/2019 [facility] Binding mcg/dL 6:49 AM DELINQUENT ACCOUNT CLERK Capacity Percent 6 (L) 14 - 50 % 08/14/2019 [facility] Saturation 6:49 AM DELINQUENT ACCOUNT CLERK Specimen Anatomical Collection Method Collection Time Receive d Time (Source) Location / / Volume Laterality Blood (Blood, 08/14/2019 6:00 AM 08/14/20 19 6:20 Venous) DELINQUENT ACCOUNT CLERK AM DELINQUENT ACCOUNT CLERK Ed Violette Dumont M.D. LAB BLOOD ADD-ON Performing Organization Address City/State/ZIP Code Phon e Number [facility]- [address] [place], [place] [address] [facility] [place] [address] System in [place] [address] [place] (ABNORMAL) Hemoglobin (08/14/2019 6:00 AM DELINQUENT ACCOUNT CLERK) P athologist Signature Hemoglobin 7.5 (L) 13.2 - 16.6 08/14/2019 [facility] g/dL 6:23 AM DELINQUENT ACCOUNT CLERK Specimen Anatomical Collection Method Collection Time Receive d Time (Source) Location / / Volume Laterality Blood (Blood, 08/14/2019 6:00 AM 08/14/20 19 6:20 Venous) DELINQUENT ACCOUNT CLERK AM DELINQUENT ACCOUNT CLERK John Norman M.D. LAB BLOOD ADD-ON Performing Organization Address City/State/ZIP Code Phon e Number [facility] [address] [place] [place], [place] [address] [facility] [place] [address] System in [place] [address] [place] Fluoro Less Than 1 Hour (08/13/2019 8:43 AM DELINQUENT ACCOUNT CLERK) Specimen (Source) Anatomical Location Collection Method / Collectio n Time Received Time / Laterality Volume Narrative [address] [place] - 08/13/2019 8:45 AM DELINQUENT ACCOUNT CLERK This exam does not require a radiologist review or interpretation. Please refer to the patient's medical record on this date for clinical details. John Norman M.D. IMG FLUOROSCOPY PROCEDURES Performing Organization Address City/State/ZIP Code Phon e Number [address] [place] (ABNORMAL) CBC with Differential (08/13/2019 6:06 AM DELINQUENT ACCOUNT CLERK) [facility] gist Method Time Signature Hemoglobin 8.1 (L) 13.2 - 08/13/2019 RDW[facility] 16.6 g/dL 6:32 AM DELINQUENT ACCOUNT CLERK Hematocrit 28.0 (L) 38.3 - 08/13/2019 RDWG 48.6 % 6:32 AM DELINQUENT ACCOUNT CLERK Erythrocytes 3.48 (L) 4.35 - 08/13/2019 RDWG 5.65 6:32 AM DELINQUENT ACCOUNT CLERK x10(12)/L MCV 80.5 78.2 - 08/13/2019 RDW[facility] 97.9 fL 6:32 AM DELINQUENT ACCOUNT CLERK RBC Distrib Width 17.9 (H) 11.8 - 08/13/2019 R[facility] 14.5 % 6:32 AM DELINQUENT ACCOUNT CLERK Platelet Count 179 135 - 317 08/13/2019 R[facility] x10(9)/L 6:32 AM DELINQUENT ACCOUNT CLERK Leukocytes 6.7 3.4 - 9.6 08/13/2019 R[facility] x10(9)/L 6:32 AM DELINQUENT ACCOUNT CLERK Neutrophils 5.06 1.56 - 08/13/2019 RDW[facility] 6.45 6:32 AM DELINQUENT ACCOUNT CLERK x10(9)/L Lymphocytes 0.84 (L) 0.95 - 08/13/2019 R[facility] 3.07 6:32 AM DELINQUENT ACCOUNT CLERK x10(9)/L Monocytes 0.73 0.26 - 08/13/2019 RDW[facility] 0.81 6:32 AM DELINQUENT ACCOUNT CLERK x10(9)/L Eosinophils 0.06 0.03 - 08/13/2019 RDW[facility] 0.48 6:32 AM DELINQUENT ACCOUNT CLERK x10(9)/L Basophils 0.03 0.01 - 08/13/2019 RDW[facility] 0.08 6:32 AM DELINQUENT ACCOUNT CLERK x10(9)/L Specimen Anatomical Collection Method Collection Time Receive d Time (Source) Location / / Volume Laterality Blood (Blood, 08/13/2019 6:06 AM 08/13/20 19 6:28 Venous) DELINQUENT ACCOUNT CLERK AM DELINQUENT ACCOUNT CLERK Juliette Crenshawviolet PALACIO C.N.P., FidelNEricka LAB BLOOD ADD-ON Performing Organization Address City/State/ZIP Code Phon e Number [facility] [address] [place], [place] [address] [place] [address] System in [place] [address] Glucose, POCT (08/13/2019 4:27 AM DELINQUENT ACCOUNT CLERK) athologist Signature Glucose, POCT, 101 70 - 140 08/13/2019 R[facility] B mg/dL 4:27 AM DELINQUENT ACCOUNT CLERK Specimen Anatomical Collection Method Collection Time Receive d Time (Source) Location / / Volume Laterality Blood 08/13/2019 4:27 AM 9 4:34 DELINQUENT ACCOUNT CLERK AM DELINQUENT ACCOUNT CLERK Generic Rals LAB POCT ORDERABLES-MANUAL Performing Organization Address City/State/ZIP Code Phon e Number [facility]- [address] [place], [place] [address] [place] [address] System in [place] [address] (ABNORMAL) Hemoglobin A1c (08/12/2019 1:17 PM DELINQUENT ACCOUNT CLERK) athologist Signature Hemoglobin A1c, 5.7 (H) 4.2 - 5.6 08/12/2019 R[facility] B % 1:43 PM DELINQUENT ACCOUNT CLERK Comment: Hemoglobin A1c values of 5.7-6.4 percent indicate an increased risk for developing diabetes m roberto carlos. In diabetic patients, HbA1c goals should be discussed with healthcare provider. Specimen Anatomical Collection Method Collection Time Receive d Time (Source) Location / / Volume Laterality Blood (Blood, 08/12/2019 1:17 PM 08/12/20 19 1:28 Venous) DELINQUENT ACCOUNT CLERK PM DELINQUENT ACCOUNT CLERK John Norman M.D. LAB BLOOD ADD-ON Performing Organization Address City/State/ZIP Code Phon e Number [facility]- [address] [place], [place] [address] [place] [address] System in [place] [address] Good documented in this encounter Visit [...] tablet 1,000 mg Given 08/16/2019 9:00 AM DELINQUENT ACCOUNT CLERK 1,000 mg (TYLENOL) 1,000 mg, oral, 3 times daily PRN, mild pain or score 1-3 of 10, headaches, fever, Starting on Thu08/12/19 at 1403 Given 08/15/2019 6:32 PM DELINQUENT ACCOUNT CLERK 1,000 mg Given 08/15/2019 8:46 AM DELINQUENT ACCOUNT CLERK 1,000 mg allopurinol tablet 300 mg (ZYLOPRIM) Given 08/15/2019 6:30 AM DELINQUENT ACCOUNT CLERK 300 mg 300 mg, oral, Daily, First dose on Thu08/13/19 at 0900 Given 08/14/2019 6:35 AM DELINQUENT ACCOUNT CLERK 300 mg allopurinol tablet 300 mg (ZYLOPRIM) Given 08/16/2019 6:22 AM DELINQUENT ACCOUNT CLERK 300 mg 300 mg, oral, Daily at bedtime, First dose (after last modification) on Thu08/16/19 at 0630 calcium carbonate chewable tablet Given 08/16/2019 6:0 9 AM DELINQUENT ACCOUNT CLERK 400 mg of calcium 400 mg of calcium (TUMS) 400 mg of calcium, oral, 2 times daily, First dose on Thu08/12/19 at 2100, Doses listed are in mg of elemental calcium. Take with food. 500 mg calcium carbonate contains 200 mg of elemental calcium. Given 08/15/2019 6:32 AM DELINQUENT ACCOUNT CLERK 400 mg of calcium Given 08/14/2019 5:25 PM DELINQUENT ACCOUNT CLERK 400 mg of calcium calcium carbonate chewable tablet Given 08/15/2019 5:4 3 PM DELINQUENT ACCOUNT CLERK 400 mg of calcium 400 mg of calcium (TUMS) 400 mg of calcium, oral, Every 2 hour PRN, heartburn, indigestion, Starting on Thu08/12/19 at 1413, Doses listed are in mg of elemental calcium. Take with food. 500 mg calcium carbonate contains 200 mg of elemental calcium. Given 08/13/2019 5:35 PM DELINQUENT ACCOUNT CLERK 400 mg of calcium ceFAZolin in NaCl 0.9 % IVPB 2 g New Bag 08/13/2019 11:59 PM DELINQUENT ACCOUNT CLERK 2 g 220 mL/hr (ANCEF) 2 g, intravenous, at 220 mL/hr, Administer over 30 Minutes, Every 8 hours, First dose on 08/13/19 at 1530, For 2 doses, Start within 8 hours of last IV dose. premix bag, Drug Monitoring Program: Pharmacist to adjust medication dosing based on indication and drug clearance factors., Indications: Prophylaxis, surgical New Bag 08/13/2019 4:07 PM DELINQUENT ACCOUNT CLERK 2 g 220 mL/hr ferrous sulfate tablet 65 mg of iron 65 mg of iron, oral, Daily, First dose o n 08/14/19 at 1315, 325 mg contains 65 mg of elemental iron. furosemide tablet 40 mg (LASIX) Given 08/15/2019 5:43 PM DELINQUENT ACCOUNT CLERK 40 mg 40 mg, oral, Daily before dinner, First dose on Thu08/12/19 at 1600 Given 08/14/2019 5:25 PM DELINQUENT ACCOUNT CLERK 40 mg Given 08/13/2019 5:33 PM DELINQUENT ACCOUNT CLERK 40 mg HYDROmorphone injection 0.5 mg (DILAUDID ) Given 08/14/2019 8:17 PM DELINQUENT ACCOUNT CLERK 0.5 mg 0.5 mg, intravenous, Every 5 min PRN, moderate pain or score 4-6 of 10, severe pain or score 7-10 of 10, Starting on 08/13/19 at 0912, For 4 doses, PACU (only), Up to maximum total dose of 2 mg Given 08/14/2019 9:03 AM DELINQUENT ACCOUNT CLERK 0.5 mg HYDROmorphone injection 0.5 mg (DILAUDID ) Given 08/13/2019 8:06 PM DELINQUENT ACCOUNT CLERK 0.5 mg 0.5 mg, intravenous, Every 2 hour PRN, severe pain or score 7-10 of 10, Starting on 08/13/19 at 0942, For 2 doses, May administer if pain is greater than 7 after scheduled and PRN regimen exhausted. If pain remains greater than 7, notify primary service. Given 08/13/2019 1:31 PM DELINQUENT ACCOUNT CLERK 0.5 mg morphine injection 2 mg Given 08/15/2019 8:45 AM DELINQUENT ACCOUNT CLERK 2 mg 2 mg, intravenous, Every 2 hour PRN, severe pain or score 7-10 of 10, breakthrough pain, Starting on 08/12/19 at 1413, For breakthrough pain unrelieved 30 minutes after PRN oral pain medication is used or if unable to take oral pain medication. NaCl 0.9% infusion Restarted 08/13/2019 9:28 AM DELINQUENT ACCOUNT CLERK 100 mL/hr 100 mL/hr 100 mL/hr, intravenous, Continuous, Starting on 08/13/19 at 0000 New Bag 08/12/2019 11:47 PM DELINQUENT ACCOUNT CLERK 100 mL/hr 100 mL/hr NaCl 0.9% infusion Rate/Dose Verify 08/14/2019 12:09 AM DELINQUENT ACCOUNT CLERK 50 mL/hr 50 mL/hr 50 mL/hr, intravenous, Continuous, Starting on 08/13/19 at 0945 New Bag 08/13/2019 8:05 PM DELINQUENT ACCOUNT CLERK 50 mL/hr 50 mL/hr Continued from OR 08/13/2019 10:09 AM DELINQUENT ACCOUNT CLERK 50 mL/hr 50 mL/hr oxyCODONE IR tablet 10 mg (ROXICODONE) Given 08/16/2019 9:00 AM DELINQUENT ACCOUNT CLERK 10 mg 10 mg, oral, Every 4 hours PRN, severe pain or score 7-10 of 10, Starting on 08/13/19 at 0942, Second line therapy. If patient is greater than 7 after 2 hours, call service for new order. Given 08/15/2019 6:32 PM DELINQUENT ACCOUNT CLERK 10 mg Given 08/15/2019 1:31 PM DELINQUENT ACCOUNT CLERK 10 mg oxyCODONE IR tablet 5 mg (ROXICODONE) 5 mg, oral, Every 4 hours PRN, moderate pain or score 4-6 of 10, Starting on 08/13/19 at 0942, Second line therapy pantoprazole DR tablet 40 mg (PROTONIX) Given 08/16/2019 6:09 AM DELINQUENT ACCOUNT CLERK 40 mg 40 mg, oral, Daily before breakfast, First dose on 08/13/19 at 0700, pantoprazole 40 mg oral daily was interchanged for omeprazole 20 or 40 mg oral daily Swallow whole. Do NOT crush, chew, or split tablet. Given 08/15/2019 6:30 AM DELINQUENT ACCOUNT CLERK 40 mg Given 08/14/2019 6:36 AM DELINQUENT ACCOUNT CLERK 40 mg pediatric umsikjtjpasl-xury-ifljqfes Given 08/14/2019 9:02 AM CS T 2 tablets chewable tablet 2 tablet (FLINTSTONES COMPLETE) 2 tablet, oral, Daily, First dose on 08/13/19 at 0900 pediatric zerdwhbmxyfx-nswx-ivqgbgig Given 08/14/2019 11:[address] 2 tablets chewable tablet 2 tablet (FLINTSTONES COMPLETE) 2 tablet, oral, Once, On 08/14/19 at 1145, For 1 dose, For total AM dose of 4 tablets pediatric jirztnwippen-vfap-volxxocl Given 08/16/2019 6:09 AM CS T 4 tablets chewable tablet 4 tablet (FLINTSTONES COMPLETE) 4 tablet, oral, Daily, First dose (after last modification) on 08/15/19 at 0630 Given 08/15/2019 6:32 AM DELINQUENT ACCOUNT CLERK 4 tablets sodium chloride 0.9 % injection 10 mL Given 08/15/2019 8:46 AM DELINQUENT ACCOUNT CLERK 10 mL 10 mL, intravenous, As needed, line care, Starting on Thu08/12/19 at 1410, Peripheral Intravenous Catheter and Rapid Infusion Catheter, prior to blood sampling, post blood transfusion or post blood sampling sodium chloride 0.9 % injection 3 mL Given 08/15/2019 10:09 PM DELINQUENT ACCOUNT CLERK 3 mL 3 mL, intravenous, Every 12 hours scheduled, First dose on Thu08/12/19 at 2100, Peripheral Intravenous Catheter and Rapid Infusion Catheter, when no infusion to maintain patency Given 08/14/2019 8:18 PM DELINQUENT ACCOUNT CLERK 3 mL Given 08/12/2019 11:47 PM DELINQUENT ACCOUNT CLERK 3 mL tamsulosin 24 hr capsule 0.4 mg (FLOMAX) Given 08/15/2019 5:43 PM DELINQUENT ACCOUNT CLERK 0.4 mg 0.4 mg, oral, Daily, First dose on 08/13/19 at 0900, Swallow whole. Do NOT crush, chew or open capsule. Given 08/14/2019 9:02 AM DELINQUENT ACCOUNT CLERK 0.4 mg tamsulosin 24 hr capsule 0.4 [...] Recently Administered Medications Times are shown in DELINQUENT ACCOUNT CLERK. Scheduled Medication Order 08/14/2019 08/15/2019 08/16/2019 allopurinol [...] NOT crush, chew, or split tablet. pediatric nfzhcvjryrwv-kogj-tmtapetl shaina wable tablet 2 tablet (FLINTSTONES COMPLETE) (CANCELED) 0902 (Given - Provider: Desirae Veras R.N.) 2 tablet, oral, Daily, First dose on 08/13/19 at 0900 pediatric tybqpyuunule-hqpb-xxbuqgin shaina wable tablet 2 tablet (FLINTSTONES COMPLETE) (COMPLETED) 1144 (Given - Provider: Desirae Veras R.N.) 2 tablet, oral, Once, On 08/14/19 at 1145, For 1 dose, For total AM dose of 4 tablets pediatric xuwjvnsuecpr-gube-meawctxo shaina wable tablet 4 tablet (FLINTSTONES COMPLETE) [...] mg of calcium, oral, Every 2 hour MD N, heartburn, indigestion, Starting on Thu08/12/19 at [...] documented as of this encounter Care Teams Imaging Technician Relationship Specialty Start Date End Date Cintia Cobb M.D. PCP - General 02/19/17 02/20/[address] [place] [phone] documented as of this encounter
--- OUTSIDE RECORDS SUMMARY | 2022-08-05 10:13 | XMS_ITS | Encounter Summary ---
:[address] [facility] Address [address] [place] [address] Care Team Providers Name Role Phone Cintia Cobb M.D. 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 Wound Toe Without Damage To Nail Open Kiran bsequent; [address] Diabetes Mellitus Type 2 Peripheral Neur opathy ([facility]) [address] [place] [phone] [phone] Social History Tobacco Use Types Packs/Day Years [...] no questions or concerns at time ofdischarge. STANT CHIEF NURSING OFFICER documented in this encounter Plan of [...] documented as of this encounter Care Teams Fraternity House Cook Relationship Specialty Start Date End Date Cintia Cobb M.D. PCP - General 02/19/17 02/20/[address] [place] [phone] documented as of this encounter
--- OUTSIDE RECORDS SUMMARY | 2022-08-05 10:13 | XMS_ITS | Encounter Summary ---
:1960 Author Organization [facility] Address [address] [place] [address] Care Team Providers Name Role Phone Cintia Cobb M.D. Primary Care Provider [phone] Reason for Visit Physical Therapy (Routine) - Closed Specialty Diagnoses / Procedures Referred By Contact Refer red To Contact Diagnoses Follow Up Examination Postoperative Visit Fracture Hip Intertrochanteric Closed Initial Left (HCC) Kacie Huerta APRN, [facility] Procedures PT Evaluate and treat C.N.P., D.N.P. [address] [place] [phone] Referral ID Status Reason Start Date Expiration Date Visits Requ ested Visits Authorized [id number] Closed 10/04/2019 10/03/2020 1 1 Encounter Details Date Type Department Care Team Description 10/13/2019 Comprehensive Visit Department of Kacie Huerta APRN, C.N.P., D.N.P. [address] [place] [phone] Follow Up Examination Postoperative Visi t; Rehabilitation Ivonne Washington P.T., D.P.T. Fracture Hip Intertrochanteric Closed In itial Left (HCC) Services in [address] [phone] Social History Tobacco Use Types Packs/Day Years [...] eval and treat Onset Date: 08/12/19 Payor: [employer] [facility] / Plan: [facility] [employer] HMO / Product Type: Medicaid HMO / TATE'S LIST Visit Count: 1 PERTINENT MEDICAL / SURGICAL [...] Procedure: ESOPHAGOGASTRODUODENOSCOPY; Surgeon: Rene Carlson M.D.; Location: [facility] GI LAB ??? LAPAROSCOPIC ASSISTED - GASTRIC BYPASS N/A 11/21/2014 Laparoscopic assisted - Gastric bypass ??? OPEN REDUCTION INTERNAL FIXATION FEMUR Left 08/13/2019 Procedure: OPEN REDUCTION INTERNAL FIXATION LEFT FEMUR; Surgeon: John Norman M.D.; Location:[facility] OR ??? OTHER CONVERTED SHX (SEE COMMENT) N/A 01/19/2017 >Implantation of dual-chamber permanent pacemaker. ??? OTHER SURGICAL HISTORY cystoscopy ??? UPPER GASTROINTESTINAL ENDOSCOPY N/A 11/21/2014 Upper gastrointestinal endoscopy Ed Cuauhtemoc Luan is a 59 y.o. male who presents [...] His waspresent for the appointment. 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 Supine Quad Set - 10 [...] P.T., D.P.T. Department of Rehabilitation Services in [address] [address] Dept: [phone] H WINDER MACHINE OPERATOR documented in this encounter Plan of Treatment Not on filedocumented as of this encounter Visit Diagnoses Diagnosis Follow Up Examination Postoperative Visi t Fracture Hip Intertrochanteric Closed In itial Left (HCC) documented in this encounter Additional Health Concerns Assessment Noted Time PHQ-9 Depression Total Score: 18 02/14/2013 9:53 AM CD T documented as of this encounter Care Teams Marketing Communications Manager Relationship Specialty Start Date End Date Cintia Cobb M.D. PCP - General 02/19/17 02/20/[address] [place] [phone] documented as of this encounter
--- OUTSIDE RECORDS SUMMARY | 2022-08-05 10:13 | XMS_ITS | Encounter Summary ---
:1960 Author Organization [facility] Address [address] [place] [address] Care Team Providers Name Role Phone Cintia Cobb M.D. Primary Care Provider [phone] Reason for Visit Reason Comments Med Refill Encounter Details Date Type Department Care Team Description 09/20/2019 Refill Department of [facility] Angélica Cobb Med Refill Medicine, Jose Daniel Piper M.D. [facility], in [address] [phone] [place], [place] [phone] Social History Tobacco Use Types Packs/Day Years [...] documented as of this encounter Care Teams Bean Sorter Relationship Specialty Start Date End Date Cintia Cobb M.D. PCP - General 02/19/17 02/20/[address] [place] [phone] documented as of this encounter
--- OUTSIDE RECORDS SUMMARY | 2022-08-05 10:13 | XMS_ITS | Encounter Summary ---
:1960 Author Organization [facility] Address [address] [place] [address] Care Team Providers Name Role Phone Cintia Cobb M.D. Primary Care Provider [phone] Reason for Visit Reason Onset Date Comments Code Needed 09/15/2019 Encounter Details Date Type Department Care Team Description 09/15/2019 Clinical Communication Department of [facility], [facility] rowan, Code Needed Medicine, Jose Daniel Piper M.D. [facility], [address] [address] [place], [place] [phone] (Work) [phone] Social History Tobacco Use Types Packs/Day Years Used Date Smoking Tobacco: Never Smokeless Tobacco: Never Alcohol Use Standard Drinks/Week Comments No 0 (1 standard drink = 0.6 oz pure alcoho l) Sex Assigned at Date Recorded Not on file documented as of this encounter Miscellaneous Notes Telephone Encounter - Fani Mac - 09/15/2019 3:11 PM CST [facility] in [place] is calling requesting an ICD10 code for billing. Please advise. Call back number: [phone] IER SUPERVISOR documented in this encounter Plan of Treatment Not on filedocumented as of this encounter Visit Diagnoses Not on filedocumented in this encounter Additional Health Concerns Assessment Noted Time PHQ-9 Depression Total Score: 18 02/14/2013 9:53 AM CD T documented as of this encounter Care Teams Domestic Helper Relationship Specialty Start Date End Date Cintia Cobb M.D. PCP - General 02/19/17 02/20/[id number] [phone] documented as of this encounter
--- OUTSIDE RECORDS SUMMARY | 2022-08-05 10:13 | XMS_ITS | Encounter Summary ---
:1960 Author Organization [facility] Address [address] [place] [address] Care Team Providers Name Role Phone Cintia Cobb M.D. Primary Care Provider [phone] Reason for Visit Physical Therapy (Routine) - Canceled Specialty Diagnoses / Procedures Referred By Contact Refer red To Contact Diagnoses Follow Up Examination Postoperative Visit Fracture Hip Intertrochanteric Closed Initial Left (HCC) Kacie Huerta APRN, [facility] Procedures PT Ongoing treatment C.N.P., D.N.P. [address] [place] [phone] Referral ID Status Reason Start Date Expiration Date Visits V isits Requested Authorized [id number] Canceled 10/13/2019 10/12/2020 99 99 Encounter Details Date Type Department Care Team Description 11/01/2019 Clinical Department of Kacie Huerta APRN, C.N.P., D.N.P. [address] [place] [phone] Follow Up Examination Postoperative Visi t; Support Rehabilitation Lesli Dias P.TPili [address] [place] [phone] Fracture Hip Intertrochanteric Closed In itial Left (HCC) Services in [address] [place] [address] Social History Tobacco Use Types Packs/Day Years [...] eval and treat Onset Date: 08/12/19 Payor: [facility] / Plan: [facility] [employer] HMO / Product Type: Medicaid HMO / [...] TREATMENT Treatment today consisted of: Performed the [employer]-Fit total body ergometer x 10 minutes level [...] Dias P.T. Department of Rehabilitation Services in [address] [address] Dept: [phone] [place] MEDIA COORDINATOR documented in this encounter Plan of Treatment Not on filedocumented as of this encounter Visit Diagnoses Diagnosis Follow Up Examination Postoperative Visi t Fracture Hip Intertrochanteric Closed In itial Left (HCC) documented in this encounter Additional Health Concerns Assessment Noted Time PHQ-9 Depression Total Score: 18 02/14/2013 9:53 AM CD T documented as of this encounter Care Teams Quality Control Scientist Relationship Specialty Start Date End Date Cintia Cobb M.D. PCP - General 02/19/17 02/20/[address] [place] [phone] documented as of this encounter
--- OUTSIDE RECORDS SUMMARY | 2022-08-05 10:14 | XMS_ITS | Encounter Summary ---
:1960 Author Organization [facility] Address [address] [place] [address] Care Team Providers Name Role Phone Cintia Cobb M.D. Primary Care Provider [phone] Reason for Visit Reason Comments Med Refill Encounter Details Date Type Department Care Team Description 07/17/2018 Refill Department of Infusion Cintia Cobb Med Refill Therapy in Feliz Arellano M.D. [address] [phone] (Wo rk) Social History Tobacco Use Types Packs/Day Years Used Date Smoking Tobacco: Never Smokeless Tobacco: Never Alcohol Use Standard Drinks/Week Comments No 0 (1 standard drink = 0.6 oz pure alcoho l) Sex Assigned at Date Recorded Not on file documented as of this encounter Miscellaneous Notes Telephone Encounter - Cintia Cobb M.D. - 07/20/2018 7:22 PM POULTRY KILLER Rx filled. TRY KILLER documented in this encounter Plan of Treatment Not on filedocumented as of this encounter Visit Diagnoses Not on filedocumented in this encounter Additional Health Concerns Assessment Noted Time PHQ-9 Depression Total Score: 18 02/14/2013 9:53 AM CD T documented as of this encounter Care Teams Director Heart Relationship Specialty Start Date End Date Cintia Cobb M.D. PCP - General 02/19/17 02/20/[id number] [phone] documented as of this encounter
--- OUTSIDE RECORDS SUMMARY | 2022-08-05 10:14 | XMS_ITS | Encounter Summary ---
:1960 Author Organization [facility] Address [address] [place] [address] Care Team Providers Name Role Phone Cintia Cobb M.D. Primary Care Provider [phone] Encounter Details Date Type Department Care Team Description 05/31/2018 Orders Only [facility] First S, M.D. Floor [address] [phone] (Wo rk) Social History Tobacco Use Types [...] documented as of this encounter Care Teams Stock Trader Relationship Specialty Start Date End Date Cintia Cobb M.D. PCP - General 02/19/17 02/20/[phone] [place] [phone] documented as of this encounter
--- OUTSIDE RECORDS SUMMARY | 2022-08-05 10:14 | XMS_ITS | Encounter Summary ---
:1960 Author Organization [facility] Address [address] [place] [address] Care Team Providers Name Role Phone Cintia Cobb M.D. Primary Care Provider [phone] Reason for Visit Reason Comments Med Refill Encounter Details Date Type Department Care Team Description 06/20/2019 Refill Department of [facility] Angélica Cobb Med Refill Medicine, [place] Keely Piper [facility], in [address] [place] [address] [phone] Social History Tobacco Use Types Packs/Day Years [...] documented as of this encounter Care Teams Forest Fire Officer Relationship Specialty Start Date End Date Cintia Cobb M.D. PCP - General 02/19/17 02/20/[address] [place] [phone] documented as of this encounter
--- OUTSIDE RECORDS SUMMARY | 2022-08-05 10:14 | XMS_ITS | Encounter Summary ---
:1960 Author Organization [facility] Address [address] [place] [address] Care Team Providers Name Role Phone Cintia Cobb M.D. Primary Care Provider [phone] Encounter Details Date Type Department Care Team Description 04/26/2018 Orders Only [facility], [place] [facility], M.D. Floor [address] [phone] [phone] (Wo rk) Social History Tobacco Use Types [...] documented as of this encounter Care Teams Demographic Analyst Relationship Specialty Start Date End Date Cintia Cobb M.D. PCP - General 02/19/17 02/20/[phone] [place] [phone] documented as of this encounter
--- OUTSIDE RECORDS SUMMARY | 2022-08-05 10:14 | XMS_ITS | Encounter Summary ---
:1960 Author Organization [facility] Address [address] [place] [address] Care Team Providers Name Role Phone Cintia Cobb M.D. Primary Care Provider [phone] Encounter Details Date Type Department Care Team Description 08/02/2019 Orders Only Department of [facility] Terri Cobb (Primary Dx) Medicine, Jose Daniel Piper M.D. [facility] in [address] [place] [phone] [place], [place] [phone] (W ork) [address] [phone] Social History Tobacco Use Types Packs/Day Years [...] as of this encounter Care Teams Rn Traveling Relationship Specialty Start Date End Date Cintia Cobb M.D. PCP - General 02/19/17 02/20/[address] [place] [phone] documented as of this encounter
--- OUTSIDE RECORDS SUMMARY | 2022-08-05 10:14 | XMS_ITS | Encounter Summary ---
:1960 Author Organization [facility] Address [address] [place] [address] Care Team Providers Name Role Phone Cintia Cobb M.D. Primary Care Provider [phone] Encounter Details Date Type Department Care Team Description 05/27/2019 Clinical Communication [facility], Jose Daniel Piper M.D. [address] [address] [place], [place] [phone] (Work) [phone] Social History Tobacco Use Types Packs/Day Years [...] done. Please follow up with her at [phone]. 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 PCP - General 02/19/17 02/20/[phone] [phone] documented as of this encounter
--- OUTSIDE RECORDS SUMMARY | 2022-08-05 10:14 | XMS_ITS | Encounter Summary ---
:1960 Author Organization [facility] Address [address] [place] [address] Care Team Providers Name Role Phone Cintia Cobb M.D. Primary Care Provider [phone] Encounter Details Date Type Department Care Team Description 02/25/2019 Orders Only [facility] - Edita El D.O. [address] , [facility] [address] [place] [phone] [place] [address] (Wo rk) Social History Tobacco [...] documented as of this encounter Care Teams Sample Maker Original Relationship Specialty Start Date End Date Cintia Cobb M.D. PCP - General 02/19/17 02/20/[address] [phone] documented as of this encounter
--- OUTSIDE RECORDS SUMMARY | 2022-08-05 10:14 | XMS_ITS | Encounter Summary ---
:1960 Author Organization [facility] Address [address] [place] [address] Care Team Providers Name Role Phone Cintia Cobb M.D. Primary Care Provider [phone] Reason for Visit Reason Comments Hip Pain 59 year old male admits . Pt was chasing his truck and slipped on the ice . Pt was unable to get up comp laints of left hip pain Encounter Details Date Type Department Care Team Description 08/12/2019 Emergency [facility] Sancho Wise Hip Closed Department (Skip) Keely ALLEN, Initial Left (HCC) [address] [facility] (Primary Dx) [place], [place] [address] [place] [address] [place] [address] Social History Tobacco Use Types Packs/Day Years Used Date Smoking Tobacco: Never Smokeless Tobacco: Never Alcohol Use Standard Drinks/Week Comments No 0 (1 standard drink = 0.6 oz pure alcoho l) Sex Assigned at Date Recorded Not on file documented as of this encounter Last Filed Vital Signs Vital Sign Reading Time Taken Comments Blood Pressure 130/71 08/12/2019 11:46 AM TRANSPORT DRIVER Pulse 69 08/12/2019 11:46 AM TRANSPORT DRIVER Temperature 37.1 ??C (98.8 ??F) 08/12/2019 11:46 AM TRANSPORT DRIVER Respiratory Rate 16 08/12/2019 8:57 AM TRANSPORT DRIVER Oxygen Saturation 100% 08/12/2019 11:46 AM TRANSPORT DRIVER Inhaled Oxygen Concentration - - Weight 83.3 kg (183 lb 10.3 oz) 08/12/2019 8:51 AM TRANSPORT DRIVER Height 182.9 cm (6') 08/12/2019 8:51 AM TRANSPORT DRIVER Body Mass Index 24.91 08/12/2019 8:51 AM TRANSPORT DRIVER documented in this encounter Medications at Time [...] X-ray demonstrates nondisplaced intertrochanteric fracture. Orthopedics in [place] consulted. Orthopedics and anesthesia accept the patient for transfer. Hospitalist and [facility] accepts for transfer. Differential Diagnoses Conditions [...] Intertrochanteric fracture seen on x-ray, orthopedics and [place] called Final Diagnoses: as of Aug 12 1036 Fracture Hip Closed Initial Left (HCC) Sancho Wise III, M.D. (Skip), M.P.H. 08/12/191035 SPORT DRIVER Mehreen Mascorro R.N. 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 Pt chased after truck. Pt slipped on ice from a standing position injuring left hip, denies all other injury Mehreen Mascorro R.N. 08/12/19 0840 SPORT DRIVER documented in this encounter Plan of Treatment Not on filedocumented as of this encounter Procedures Procedure Name Priority Date/Time Associated Comments Diagnosis PROTHROMBIN TIME STAT 08/12/2019 9:55 Results for this (PT), P AM TRANSPORT DRIVER procedure are i n the results section. CBC WITH STAT 08/12/2019 9:55 Results for this DIFFERENTIAL, B AM TRANSPORT DRIVER procedure ar e in the results section. BASIC METABOLIC STAT 08/12/2019 9:55 Results f or this PANEL, S/P AM TRANSPORT DRIVER procedure are i n the results section. ECG STAT 08/12/2019 9:24 Results for this AM TRANSPORT DRIVER procedure are i n the results section. DX HIP AND PELVIS RAD - Semiurgent 08/12/2019 8:51 Res ults for this LEFT 2-3 VIEWS (Fast; most ED AM TRANSPORT DRIVER procedure a re in patients; some the results inpatients) section. documented in this encounter Results Prothrombin Time (PT) (08/12/2019 9:55 AM TRANSPORT DRIVER) P athologist Signature Prothrombin 8.8 8.8 - 11.9 08/12/2019 CNFL Time, P sec 10:09 AM TRANSPORT DRIVER INR 0.9 0.9 - 1.2 08/12/2019 CNFL 10:09 AM TRANSPORT DRIVER Comment: Standard intensity warfarin therapeutic range: 2.0 to 3.0 High intensity warfarin therapeutic rang e: 2.5 to 3.5 Specimen Anatomical Collection Method Collection Time Receive d Time (Source) Location / / Volume Laterality Blood (Blood, 08/12/2019 9:55 AM 08/12/20 9:55 Venous) TRANSPORT DRIVER AM TRANSPORT DRIVER Sancho (Skip) Frandy ALLEN M.D., M.P.H. LAB BLOOD ADD-ON Performing Organization Address City/State/ZIP Code Phon e Number [facility]- [address] [place] [address] [place] [address] [facility] [place] [address] System in [place] [address] Bl (ABNORMAL) Basic Metabolic Panel (08/12/2019 9:55 AM TRANSPORT DRIVER) P athologist Signature Potassium, P 4.6 3.6 - 5.2 08/12/2019 CNFL mmol/L 10:19 AM TRANSPORT DRIVER Sodium, P 139 135 - 145 08/12/2019 [facility] mmol/L 10:19 AM TRANSPORT DRIVER Chloride, P 100 98 - 107 08/12/2019 [facility] mmol/L 10:13 AM TRANSPORT DRIVER Bicarbonate, P 27 22 - 29 08/12/2019 [facility] mmol/L 10:13 AM TRANSPORT DRIVER Anion Gap, P 12 7 - 15 08/12/2019 CNFL 10:19 AM TRANSPORT DRIVER BUN (Blood Urea 26 (H) 8 - 24 08/12/2019 [facility] Nitrogen), P mg/dL 10:13 AM TRANSPORT DRIVER Creatinine 1.06 0.74 - 08/12/2019 [facility] 1.35 mg/dL 10:13 AM TRANSPORT DRIVER eGFR-Black/Afri 87 >=60 08/12/2019 [facility]FL can Wallisian mL/min/BSA 10:13 AM TRANSPORT DRIVER Comment: ----ADDITIONAL INFORMATION---- Estimated GFR calculated using the 2009 CKD_EPI creatinine equation. eGFR Non-Black/ 75 >=60 mL/min/BSA 08/12/2019 10:13 AM TRANSPORT DRIVER CNFL Comment: ----ADDITIONAL INFORMATION---- Estimated GFR calculated using the 2009 CKD_EPI creatinine equation. Calcium, Total, P 9.2 8.8 - 10.2 mg/dL 08/12/2019 10:1 3 AM TRANSPORT DRIVER CNFL Glucose, P 131 70 - 140 mg/dL 08/12/2019 10:13 AM TRANSPORT DRIVER CNFL Specimen Anatomical Collection Method Collection Time Receive d Time (Source) Location / / Volume Laterality Blood (Blood, 08/12/2019 9:55 AM 08/12/20 9:55 Venous) TRANSPORT DRIVER AM TRANSPORT DRIVER Sancho (Skip) Frandy ALLEN M.D., M.P.H. LAB BLOOD ADD-ON Performing Organization Address City/State/ZIP Code Phon e Number [facility]- [address] [place] [address] [facility] [place] [address] System in [address] (ABNORMAL) CBC with Differential, Blood (08/12/2019 9:55 AM TRANSPORT DRIVER) [facility] gist Method Time Signature Hemoglobin 8.3 (L) 13.2 - 08/12/2019 [facility] 16.6 g/dL 10:03 AM TRANSPORT DRIVER Hematocrit 28.1 (L) 38.3 - 08/12/2019 CNFL 48.6 % 10:03 AM TRANSPORT DRIVER Erythrocytes 3.51 (L) 4.35 - 08/12/2019 [facility] 5.65 10:03 AM TRANSPORT DRIVER x10(12)/L MCV 80.1 78.2 - 08/12/2019 [facility] 97.9 fL 10:03 AM TRANSPORT DRIVER RBC Distrib Width 17.7 (H) 11.8 - 08/12/2019 [facility] 14.5 % 10:03 AM TRANSPORT DRIVER Platelet Count 225 135 - 317 08/12/2019 CN[facility] x10(9)/L 10:03 AM TRANSPORT DRIVER Leukocytes 5.8 3.4 - 9.6 08/12/2019 CNFL x10(9)/L 10:03 AM TRANSPORT DRIVER Neutrophils 4.39 1.56 - 08/12/2019 CNFL 6.45 10:03 AM TRANSPORT DRIVER x10(9)/L Lymphocytes 0.89 (L) 0.95 - 08/12/2019 CNFL 3.07 10:03 AM TRANSPORT DRIVER x10(9)/L Monocytes 0.45 0.26 - 08/12/2019 CNFL 0.81 10:03 AM TRANSPORT DRIVER x10(9)/L Eosinophils 0.07 0.03 - 08/12/2019 CNFL 0.48 10:03 AM TRANSPORT DRIVER x10(9)/L Basophils 0.03 0.01 - 08/12/2019 CNFL 0.08 10:03 AM TRANSPORT DRIVER x10(9)/L Specimen Anatomical Collection Method Collection Time Receive d Time (Source) Location / / Volume Laterality Blood (Blood, 08/12/2019 9:55 AM 08/12/20 9:55 Venous) TRANSPORT DRIVER AM TRANSPORT DRIVER Authorizing Provider Result Thom Higgins) Frandy ALLEN M.D., M.P.H. LAB BLOOD ADD-ON Performing Organization Address City/State/ZIP Code Phon e Number [facility]- [address] [place] [address] [place] [address] [facility] [place] [address] ECG 12 Lead (08/12/2019 9:24 AM TRANSPORT DRIVER) P athologist Signature Ventricular Rate 63 BPM MUSE ECG/Min QRSD Interval 174 ms MUSE QT Interval 460 ms MUSE QTC Interval 470 ms MUSE R [place] -84 degrees MUSE T Wave [place] 81 degrees MUSE Specimen Anatomical Collection Method Collection Time Receive d Time (Source) Location / / Volume Laterality 08/12/2019 9:24 AM 9 9:28 TRANSPORT DRIVER AM TRANSPORT DRIVER Impressions MUSE - 08/12/2019 9:28 AM TRANSPORT DRIVER Dual chamber electronic pacemaker Sinus rhythm When [...] Pelvis Left 2-3 Views (08/12/2019 8:51 AM TRANSPORT DRIVER) Anatomical Region Laterality Modality Lower Extremity, Pelvis, Hip, Musculoskeletal RST LOS, Left Digital Radiography Musculoskeletal ARZ LOS, Muskuloskeletal FLA LOS Specimen (Source) Anatomical Collection Method Collection Time Re ceived Time Location / / Volume Laterality 08/12/2019 8:53 AM TRANSPORT DRIVER Impressions 08/12/2019 8:58 AM TRANSPORT DRIVER Nondisplaced left intertrochanteric trochanteric fracture. Femoral acetabular joints are congruent. Mild to moderate degenerative changes at both hips. Lumbosacral spondylosis. No suspic ious osseous lesion. Narrative 08/12/2019 8:58 AM TRANSPORT DRIVER EXAM: DX HIP AND PELVIS LEFT 2-3 [...] documented as of this encounter Care Teams Pole Frame Construction Worker Relationship Specialty Start Date End Date Cintia Cobb M.D. PCP - General 02/19/17 02/20/[address] [place] [phone] documented as of this encounter
--- OUTSIDE RECORDS SUMMARY | 2022-08-05 10:14 | XMS_ITS | Encounter Summary ---
:1960 Author Organization [facility] Address [address] [place] [address] Care Team Providers Name Role Phone Cintia Bullock M.D. Primary Care Provider [phone] Reason for Visit Reason Comments hemoglobin follow up Encounter Details Date Type Department Care Team Description 09/28/2018 Office Visit Department of [facility] Terri Bullocktes Mellitus Type 2 With Diabetic Neuropathy (HCC) (Primary Dx); Medicine, Jose Daniel Piper M.D. Anemia Iron Deficiency Blood Loss Chroni c; [facility], in [address] [place] [address] Frequenc y Urinary; [facility] Hypertension Essential Primary; [place], [place] Herniated Disc Lumbar; [address] [place] [phone] Screening Examination Prostate Cancer; [place], [place] [phone] Diarrhea [phone] (Work) [phone] Social History Tobacco Use Types Packs/Day Years Used Date Smoking Tobacco: Never Smokeless Tobacco: Never Alcohol Use Standard Drinks/Week Comments No 0 (1 standard drink = 0.6 oz pure alcoho l) Sex Assigned at Date Recorded Not on file documented as of this encounter Last Filed Vital Signs Vital Sign Reading Time Taken Comments Blood Pressure 134/85 09/28/2018 6:15 PM ANIMATED CARTOONS PAINTER Pulse 80 09/28/2018 6:15 PM ANIMATED CARTOONS PAINTER Temperature - - Respiratory Rate - - Oxygen Saturation 100% 09/28/2018 6:15 PM ANIMATED CARTOONS PAINTER Inhaled Oxygen Concentration - - Weight - [...] Cintia Copeland M.D. . 09/30/2018. 1:26 PM. ATED CARTOONS PAINTER Xochitl Hackett L.P.N. - 09/28/2018 6:45 PM CST Client has question about omeprazole script. is unclear on what he's speaking of. Ed believes they want to cover four months. Instructed to find out what problem is. ATED CARTOONS PAINTER documented in this encounter Miscellaneous Notes Addendum Note - Cintia Bullock M.D. - 09/28/2018 6:45 PM ANIMATED CARTOONS PAINTER Addended by: CINTIA BULLOCK on: 08/02/2019 06:53 PM Modules accepted: Orders ATED CARTOONS PAINTER documented in this encounter Plan of Treatment Not on filedocumented as of this encounter Procedures Procedure Name Priority Date/Time Associated Diagnosis Comme nts PROSTATE-SPECIFIC AG Routine 09/28/2018 7:08 PM Screening R esults for this (PSA) SCRN, S ANIMATED CARTOONS PAINTER Examination Prostate proced ure are in Cancer the results section. HEMOGLOBIN, B Routine 09/28/2018 7:08 PM Anemia Iron Results for this ANIMATED CARTOONS PAINTER Deficiency Blood procedure a re in Loss Chronic the results section. HEMOGLOBIN A1C, B Routine 09/28/2018 7:08 PM Diabetes Mellitus Results for this ANIMATED CARTOONS PAINTER Type 2 With Diabetic procedu re are in Neuropathy (HCC) the results section. documented in this encounter Results PSA (Prostate-Specific Antigen) Screen (09/28/2018 7:08 PM ANIMATED CARTOONS PAINTER) P athologist Signature Prostate-Specif 2.0 <=4.5 09/29/2018 [facility] ic Ag ng/mL 1:30 PM ANIMATED CARTOONS PAINTER [facility] Comment: Biotin has been identified by the [facility] as a potential interfering substance. ??Higher concentr ations of biotin may be found in multivitamins, hair/nail supple ments, and workout supplements. ??If the result does not [facility] clinical observations, repeat testing after patient [...] (Blood, 09/28/2018 7:08 PM 09/29/19 19 Venous) ANIMATED CARTOONS PAINTER 12:48 PM ANIMATED CARTOONS PAINTER Cintia Copeland M.D. LAB BLOOD ADD-ON Performing Organization Address City/State/ZIP Code Phon e Number [facility] [address] [place] [address] [facility] (ABNORMAL) Hemoglobin (09/28/2018 7:08 PM ANIMATED CARTOONS PAINTER) athologist Signature Hemoglobin 7.8 (L) 13.2 - 16.6 09/28/2018 [facility] g/dL 7:30 PM [facility] Specimen Anatomical Collection Method Collection Time Receive d Time (Source) Location / / Volume Laterality Blood (Blood, 09/28/2018 7:08 PM 09/28/19 19 7:27 Venous) ANIMATED CARTOONS PAINTER PM ANIMATED CARTOONS PAINTER Cintia Copeland M.D. LAB BLOOD ADD-ON Performing Organization Address City/State/ZIP Code Phon e Number [facility]- [address] [place] [address], [place] [address] [facility] (ABNORMAL) Hemoglobin A1c (09/28/2018 7:08 PM ANIMATED CARTOONS PAINTER) P athologist Signature Hemoglobin A1c, 5.9 (H) 4.2 - 5.6 09/28/2018 [facility] B % 7:43 PM ANIMATED CARTOONS PAINTER [facility] Comment: Hemoglobin A1c values of 5.7-6.4 percent indicate an increased risk for developing diabetes m ellitus. In diabetic patients, HbA1c goals should be discussed with healthcare provider. Specimen Anatomical Collection Method Collection Time Receive d Time (Source) Location / / Volume Laterality Blood (Blood, 09/28/2018 7:08 PM 09/28/19 19 7:27 Venous) ANIMATED CARTOONS PAINTER PM ANIMATED CARTOONS PAINTER Cintia Copeland M.D. LAB BLOOD ADD-ON Performing Organization Address City/State/ZIP Code Phon e Number [facility]- [address] [place] [address] [facility] documented in this encounter Visit Diagnoses [...] documented as of this encounter Care Teams Ball Shagger Relationship Specialty Start Date End Date Cintia Bullock M.D. PCP - General 02/19/17 02/20/[address] [place] [phone] documented as of this encounter
--- OUTSIDE RECORDS SUMMARY | 2022-08-05 10:14 | XMS_ITS | Encounter Summary ---
:1960 Author Organization [facility] Address [address] [place] [address] Care Team Providers Name Role Phone Cintia Cobb M.D. Primary Care Provider [phone] Reason for Visit Reason Comments Post Hospital Follow-up Outpatient (Routine) - Closed Specialty Diagnoses / Procedures Referred By Contact Refer red To Contact Diagnoses Hemorrhage Gastrointestinal Luis Varghese, [facility] HAKEEM, C.N.P. [address] [place] [phone] Referral ID Status Reason Start Date Expiration Date Visits Requ ested Visits Authorized [id number] Closed 04/15/2018 04/15/2019 1 1 Encounter Details Date Type Department Care Team Description 04/21/2018 Office Visit Department of [facility] Tanja Munoz, P.A.-C. [address] [place] [address] Hemorrhage Gastrointestinal (Primary Dx) ; Medicine, Cintia Bella M.D. [address] [place] [phone] Anemia Of Chronic Disease; [facility], in Weakness Le g Left; [place], [facility]; [place] Diabetes Mellitus Type 2 Wit h Diabetic Neuropathy (HCC); [address] [place] [address] [place] [address] Social History Tobacco Use Types Packs/Day Years [...] He was admitted to the hospital in [place] and had an EGD showing an ulcer. [...] possible left L5 radiculopathy. Cintia S Song [place] M.D. IMG CT PROCEDURES documented in this [...] documented as of this encounter Care Teams Stick Puller Relationship Specialty Start Date End Date Cintia Cobb M.D. PCP - General 02/19/17 02/20/[address] [place] [phone] documented as of this encounter
--- OUTSIDE RECORDS SUMMARY | 2022-08-05 10:14 | XMS_ITS | Encounter Summary ---
:[address] [facility] Address [address] [place] [address] Care Team Providers Name Role Phone Cintia Cobb M.D. Primary Care Provider [phone] Reason for Visit MRI/CAT/PET Scan (Routine) - Closed Specialty Diagnoses / Procedures Referred By Contact Refer red To Contact Radiology Diagnoses Pain Low Back Unspecified Cintia Cobb [facility] Region Procedures CT Lumbar Spine without IV Contrast MO CT LUMBAR SPINE WO [facility] CT LUMBAR SPINE WO [facility] MO CT LUMBAR SPINE WO SAMARA Piper M.D. [address] [place] [phone] Referral ID Status Reason Start Date Expiration Date Visits Requ ested Visits Authorized [id number] Closed 04/07/2018 04/07/2019 1 1 Encounter Details Date Type Department Care Team Description 04/21/2018 Hospital Encounter Department of Radiology [place] [facility] Cintia Arellano M.D. [address] [phone] Social History Tobacco Use Types Packs/Day Years [...] documented as of this encounter Care Teams Driver Lifter Of Sanitation Truck Relationship Specialty Start Date End Date Cintia Cobb M.D. PCP - General 02/19/17 02/20/[address] [place] [phone] documented as of this encounter
--- OUTSIDE RECORDS SUMMARY | 2022-08-05 10:14 | XMS_ITS | Encounter Summary ---
:1960 Author Organization [facility] Address [address] [place] [address] Care Team Providers Name Role Phone Cintia Cobb M.D. Primary Care Provider [phone] Reason for Visit Auth/Cert Specialty Diagnoses / Procedures Referred By Contact Refer red To Contact Diagnoses Pain Joint Fracture Hip Closed Initial Left (HCC) Hip Fracture Procedures n/a Referral ID Status Reason Start Date Expiration Date Visits Requ ested Visits Authorized [id number] 1 1 Encounter Details Date Type Department Care Team Description 08/13/2019 Anesthesia Event [facility] OR Billy Luna, Suraj SAL WAN AUTO BODY PAINTER, ENGINE DYNAMOMETER TESTER [place], [place] [address] [address] [place] [address] Anesthesia Record Procedure Summary Procedure Name Responsible Anesthesia Start Anesthesia Stop Time Anesthesiologist Time OPEN REDUCTION Billy Luna APRN, 08/13/19 0707 08/13 0901 INTERNAL FIXATION ENGINE DYNAMOMETER TESTER LEFT FEMUR (Left: Hip) Events Date Time [...] h andoff to the receiving staff during [facility] we 1. Identified the patient 2. [...] 1 1418 by Left; Eric Lakhani R.N. [facility] ic-Backgroun chapis; 05/28/21 d, Scheduling (Removed by [...] Procedure Summary Date: 08/13/19 Room / Location: [address] 0306 / [facility] - [facility] Anesthesia Start: 706 Anesthesia Stop: [...] Post Op nausea/vomiting: none Hydration status: euvolemic AT CDL A DRIVER Anesthesia Procedure Notes - Billy Luna CRNA [...] completed successfully: successful procedure Other complications: none AT CDL A DRIVER Anesthesia Preprocedure Evaluation - Billy Luna CRNA, R.N. - 08/13/2019 6:16 AM CST Preprocedure Anesthesia & H&P Assessment Procedure Summary Date/Time: 08/13/19 0700 Procedure: OPEN REDUCTION INTERNAL FIXATION LEFT FEMUR (Left ) Diagnosis: Fracture Hip Intertrochanteric Closed Initial Left (HCC) [S72.142A] Pre-op diagnosis: Fracture Hip Intertrochanteric Closed Initial Left (HCC) [S72.142A] Location: [address] 1203 / [facility] Surgeon: John Norman M.D. Pertinent [...] with patient /legal guardian or through an paper mill supervisor. Risks/Benefits/Alternatives of Blood transfusion discussed with patient [...] due to failed or unsuccessful spinal placement. AT CDL A DRIVER documented in this encounter Plan of Treatment Not on filedocumented as of this encounter Procedures Procedure Name Priority Date/Time Associated Comments Diagnosis ANESTHESIA REGIONAL Routine 08/13/2019 7:40 AM Re sults for this BLOCK HAZMAT CDL A DRIVER procedure are i n the results section. documented in this encounter Results Regional Block (08/13/2019 7:40 AM HAZMAT CDL A DRIVER) Narrative Billy Luna CRNA RPiliN. - 2018 7:40 AM HAZMAT CDL A DRIVER Billy Luna CRNA, R.N. ? 08/13/2019 ??7:41 [...] % (5 mg/mL) Given 08/13/2019 7:24 AM HAZMAT CDL A DRIVER 2.4 mL injection (MARCAINE) As needed, Starting on 08/13/19 at 0724, Anesthesia Intra-op ceFAZolin in NaCl 0.9 % IVPB 2 g (ANCEF) Given 08/13/2019 7:27 AM HAZMAT CDL A DRIVER 2 g 2 g (rounded from 2.0825 [...] fentaNYL injection (SUBLIMAZE) Given 08/13/2019 7:13 AM HAZMAT CDL A DRIVER 50 mcg intravenous, As needed, Starting on 08/13/19 at 0707, Anesthesia Intra-op Given 08/13/2019 7:07 AM HAZMAT CDL A DRIVER 50 mcg lactated ringers New Bag 08/13/2019 7:07 AM HAZMAT CDL A DRIVER intravenous, Continuous Infusion: Per Instructions PRN, Starting on 08/13/19 at 0707, Anesthesia Intra-op midazolam (PF) injection (VERSED) Given 08/13/2019 7:13 AM HAZMAT CDL A DRIVER 1 mg intravenous, As needed, Starting on 08/13/19 at 0707, Anesthesia Intra-op Given 08/13/2019 7:07 AM HAZMAT CDL A DRIVER 1 mg ondansetron (PF) injection (ZOFRAN) Given 08/13/2019 7:35 AM HAZMAT CDL A DRIVER 4 mg As needed, Starting on 08/13/19 at 0735, Anesthesia Intra-op propofol 10 mg/mL infusion Rate/Dose 08/13/2019 8:34 25 mcg/kg/min 1 2.2 mL/hr (DIPRIVAN) Change AM HAZMAT CDL A DRIVER intravenous, Continuous Infusion: Per Instructions PRN, Starting on 08/13/19 at 0730, Anesthesia Intra-op New Bag 08/13/2019 7:30 AM HAZMAT CDL A DRIVER 50 mcg/kg/min 24.3 mL/hr documented in this encounter Additional Health Concerns Assessment Noted Time PHQ-9 Depression Total Score: 18 02/14/2013 9:53 AM CD T documented as of this encounter Care Teams National Account Executive Relationship Specialty Start Date End Date Cintia Cobb M.D. PCP - General 02/19/17 02/20/[address] [phone] documented as of this encounter
--- OUTSIDE RECORDS SUMMARY | 2022-08-05 10:14 | XMS_ITS | Encounter Summary ---
:1960 Author Organization [facility] Address [address] [place] [address] Care Team Providers Name Role Phone Cintia Cobb M.D. Primary Care Provider [phone] Encounter Details Date Type Department Care Team Description 12/16/2018 Orders Only Department of [facility] Bhumi Bran, Therapy in [place], M.S.N., [place] [address] [facility] [address] [place] [address] [phone] Social History Tobacco Use Types Packs/Day Years [...] documented as of this encounter Care Teams Transportation Refrigeration Technician Relationship Specialty Start Date End Date Cintia Cobb M.D. PCP - General 02/19/17 02/20/[address] [place] [phone] documented as of this encounter
--- OUTSIDE RECORDS SUMMARY | 2022-08-05 10:14 | XMS_ITS | Encounter Summary ---
:1960 Author Organization [facility] Address [address] [place] [address] Care Team Providers Name Role Phone Cintia Cobb M.D. Primary Care Provider [phone] Encounter Details Date Type Department Care Team Description 08/12/2019 Orders Only Department of Orthopedic John Norman M.D. Surgery in [address] [address] [place] [address] [place] [address] [phone] Social History Tobacco Use Types Packs/Day Years [...] documented as of this encounter Care Teams Custodial Supervisor Relationship Specialty Start Date End Date Cintia Cobb M.D. PCP - General 02/19/17 02/20/[address] [phone] documented as of this encounter
--- OUTSIDE RECORDS SUMMARY | 2022-08-05 10:14 | XMS_ITS | Encounter Summary ---
:1960 Author Organization [facility] Address [address] [place] [address] Care Team Providers Name Role Phone Cintia Cobb M.D. Primary Care Provider [phone] Encounter Details Date Type Department Care Team Description 10/22/2018 Orders Only Department of [facility] Angélica Cobb Medicine, Jose Daniel Piper M.D. Clinic, in [address] [address] [place], [place] [phone] (W ork) [phone] Social History Tobacco Use Types Packs/Day Years [...] documented as of this encounter Care Teams Pit Furnace Melter Relationship Specialty Start Date End Date Cintia Cobb M.D. PCP - General 02/19/17 02/20/[address] [place] [phone] documented as of this encounter
--- OUTSIDE RECORDS SUMMARY | 2022-08-05 10:14 | XMS_ITS | Encounter Summary ---
:1960 Author Organization [facility] Address [address] [place] [address] Care Team Providers Name Role Phone Cintia Cobb M.D. Primary Care Provider [phone] Encounter Details Date Type Department Care Team Description 06/03/2018 Orders Only Department of [facility] Terri Cobbbetes Mellitus Type MedicineJose Daniel M.D. 2 (HCC) (Primary Dx) [facility], in [address] [place] [address] [place], [place] [phone] (W ork) [address] [phone] Social History Tobacco Use Types Packs/Day Years [...] as of this encounter Care Teams Drilling Engineer Relationship Specialty Start Date End Date Cintia Cobb M.D. PCP - General 02/19/17 02/20/[address] [place] [phone] documented as of this encounter
--- OUTSIDE RECORDS SUMMARY | 2022-08-05 10:14 | XMS_ITS | Encounter Summary ---
:1960 Author Organization [facility] Address [address] [place] [address] Care Team Providers Name Role Phone Cintia Cobb M.D. Primary Care Provider [phone] Reason for Visit Reason Onset Date Comments CT scan disc 04/30/2018 Encounter Details Date Type Department Care Team Description 04/30/2018 Clinical Communication Department of [facility] Fernanda Buckner CT scan disc Medicine, Jose Daniel Lindsay R.N. [address] [address] [place], [place] [phone] (Work) [phone] Social History Tobacco Use Types Packs/Day Years [...] of 04/21/18 CT scan taken from front line leader to Med/ elevator adjusterTiffany, per pt request as he cannot get to the front line leader before noon tomorrow (Thursday). documented in this encounter Plan of Treatment Not on filedocumented as of this encounter Visit Diagnoses Not on filedocumented in this encounter Additional Health Concerns Assessment Noted Time PHQ-9 Depression Total Score: 18 02/14/2013 9:53 AM CD T documented as of this encounter Care Teams Extern Relationship Specialty Start Date End Date Cintia Cobb M.D. PCP - General 02/19/17 02/20/[address] [place] [phone] documented as of this encounter
--- OUTSIDE RECORDS SUMMARY | 2022-08-05 10:14 | XMS_ITS | Encounter Summary ---
:1960 Author Organization [facility] Address [address] [place] [address] Care Team Providers Name Role Phone Cintia Cobb M.D. Primary Care Provider [phone] Reason for Visit Reason Comments Med Refill Encounter Details Date Type Department Care Team Description 09/30/2018 Refill Department of [facility] Angélica Cobb Med Refill Medicine, Jose Daniel Piper M.D. [facility], in [address] [address] [place], [place] [address] [phone] Social History Tobacco Use Types Packs/Day Years [...] documented as of this encounter Care Teams Vb Net Developer Relationship Specialty Start Date End Date Cintia Cobb M.D. PCP - General 02/19/17 02/20/[address] [place] [phone] documented as of this encounter
--- OUTSIDE RECORDS SUMMARY | 2022-08-05 10:14 | XMS_ITS | Encounter Summary ---
:1960 Author Organization [facility] Address [address] [place] [address] Care Team Providers Name Role Phone Cintia Cobb M.D. Primary Care Provider [phone] Reason for Visit Reason Comments Med Refill Encounter Details Date Type Department Care Team Description 02/24/2019 Refill Department of [facility] Angélica Cobb Med Refill Medicine, [place] Pi[place] M[place]. [facility], in [address] [place] [address] [phone] Social History Tobacco Use Types Packs/Day Years [...] by mouth every morning Pharmacy (include Location): [facility] Patient states he dont answer his phone but you can email him documented in this encounter Plan of Treatment Not on filedocumented as of this encounter Visit Diagnoses Not on filedocumented in this encounter Additional Health Concerns Assessment Noted Time PHQ-9 Depression Total Score: 18 02/14/2013 9:53 AM CD T documented as of this encounter Care Teams Agricultural Loan Officer Relationship Specialty Start Date End Date Cintia Cobb M.D. PCP - General 02/19/17 02/20/[address] [place] [phone] documented as of this encounter
--- OUTSIDE RECORDS SUMMARY | 2022-08-05 10:14 | XMS_ITS | Encounter Summary ---
:1960 Author Organization [facility] Address [address] [place] [address] Care Team Providers Name Role Phone Cintia Cobb M.D. Primary Care Provider [phone] Reason for Visit Reason Onset Date Comments Communication 09/29/2018 Encounter Details Date Type Department Care Team Description 09/29/2018 Clinical Communication [facility] Medicine, Cintia Jean Baptiste [facility], in S, RaysaD. [address] [phone] Social History Tobacco Use Types Packs/Day Years Used Date Smoking Tobacco: Never Smokeless Tobacco: Never Alcohol Use Standard Drinks/Week Comments No 0 (1 standard drink = 0.6 oz pure alcoho l) Sex Assigned at Date Recorded Not on file documented as of this encounter Miscellaneous Notes Telephone Encounter - Laura Mejia R.N. - 09/30/2018 11:48 AM ANVIL WORKER Pharmacy contacted and updated directions given. L WORKER Telephone Encounter - Emelia Ackerman - 09/30/2018 11:39 AM CST Pharmacy is stating that they did not receive the new script with updated directions. Please send again. L WORKER Telephone Encounter - Laura Mejia R.N. - 09/30/2018 10:17 AM ANVIL WORKER Pharmacy notified that a new script has been sent with updated directions. L WORKER Telephone Encounter - Cintia Cobb M.D. - 09/30/2018 10:14 AM ANVIL WORKER I attempted to remove the directions of bid. It should be daily for life. Cintia Segura L WORKER Telephone Encounter - Laura Mejia R.N. - 09/29/2018 3:43 PM CST Unable to review 09/28/18 visit note, not yet completed. Pharmacy states the instructions state once daily (script refilled as once daily), but then additional instructions state BID for an indefinite amount of time. Please advise. Juan drug will need updated directions. L WORKER Telephone Encounter - Eli Armstrong - 09/29/2018 3:28 PM CST [facility] in [place] called to clarify RX sent for Ed from Dr Song, please call them at [phone] L WORKER documented in this encounter Plan of Treatment Not on filedocumented as of this encounter Visit Diagnoses Not on filedocumented in this encounter Additional Health Concerns Assessment Noted Time PHQ-9 Depression Total Score: 18 02/14/2013 9:53 AM CD T documented as of this encounter Care Teams Crossing Tender Relationship Specialty Start Date End Date Cintia Cobb M.D. PCP - General 02/19/17 02/20/[address] [phone] documented as of this encounter
--- OUTSIDE RECORDS SUMMARY | 2022-08-05 10:14 | XMS_ITS | Encounter Summary ---
:1960 Author Organization [facility] Address [address] [place] [address] Care Team Providers Name Role Phone Cintia Cobb M.D. Primary Care Provider [phone] Reason for Visit Reason Comments Anemia Encounter Details Date Type Department Care Team Description 06/01/2018 Office Visit Department of [facility] Soumya Cobb Iron Deficiency Blood Loss Chronic (Primary Dx); Medicine, Jose Daniel Piper M.D. Chronic Or Unspecified Gastrojejunal Ulc er With Hemorrhage; [place] [address] Radiculo fabiana Lumbar; [facility] Somnolence [address] [address] [place], [place] [phone] (Work) [phone] Social History Tobacco Use Types Packs/Day Years [...] his pain. He will be seeing the transitional living specialist next week. His stomach is starting [...] asleep. 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 Brief [...] Ferritin, S 33 30 - 400 06/02/2018 [facility] mcg/L 2:25 PM CDT [facility] Comment: Biotin has been identified by the [facility] as a potential interfering substance. ??Higher concentr ations of biotin may be found in multivitamins, hair/nail supple ments, and workout supplements. ??If the result does not [facility] clinical observations, repeat testing after patient refrains fr om the use of supplements for at least 12 hours. Specimen Anatomical Collection Method Collection Time Receive d Time (Source) Location / / Volume Laterality Blood (Blood, 06/01/2018 7:07 PM 06/02/20 18 1:59 Venous) CDT PM CDT Cintia Copeland M.D. LAB BLOOD ADD-ON Performing Organization Address City/State/ZIP Code Phon e Number [facility] [address] [place] [address] [facility] (ABNORMAL) Hemoglobin (06/01/2018 7:07 PM CDT) athologist Signature Hemoglobin 7.8 (L) 13.2 - 16.6 06/01/2018 [facility] g/dL 7:17 PM CDT [facility] Specimen Anatomical Collection Method Collection Time Receive d Time (Source) Location / / Volume Laterality Blood (Blood, 06/01/2018 7:07 PM 06/01/20 18 7:09 Venous) CDT PM CDT Cintia Copeland M.D. LAB BLOOD ADD-ON Performing Organization Address City/State/ZIP Code Phon e Number [facility] [address] [place] [address], [place] [address] [facility] documented in this encounter Visit Diagnoses Diagnosis Anemia Iron Deficiency Blood Loss Chroni c - Primary Chronic Or Unspecified Gastrojejunal Ulc er With Hemorrhage Radiculopathy Lumbar Somnolence documented in this encounter Additional Health Concerns Assessment Noted Time PHQ-9 Depression Total Score: 18 02/14/2013 9:53 AM CD T documented as of this encounter Care Teams Rolling Mill Operator Helper Relationship Specialty Start Date End Date Cintia Cobb M.D. PCP - General 02/19/17 02/20/[address] [phone] documented as of this encounter
--- OUTSIDE RECORDS SUMMARY | 2022-08-05 10:14 | XMS_ITS | Encounter Summary ---
:1960 Author Organization [facility] Address [address] [place] [address] Care Team Providers Name Role Phone Cintia Cobb M.D. Primary Care Provider [phone] Encounter Details Date Type Department Care Team Description 04/21/2018 Hospital Department of [facility], Hemorrhage Encounter Laboratory Luis Fernandez, Gastrointestina l Medicine in [address] [address] [place], [place] [phone] (Work) [phone] Social History Tobacco Use Types Packs/Day Years [...] CBC with Differential (04/21/2018 1:35 PM CDT) [facility] gist Method Time Signature Hemoglobin 8.4 (L) 13.2 - 04/21/2018 [facility] 16.6 g/dL 1:44 PM CDT [facility] Hematocrit 26.6 (L) 38.3 - 04/21/2018 [facility] 48.6 % 1:44 PM CDT [facility] Erythrocytes 2.99 (L) 4.35 - 04/21/2018 [facility] 5.65 1:44 PM CDT HEALTH x10(12)/L [facility] MCV 89.0 78.2 - 04/21/2018 [facility] 97.9 fL 1:44 PM T [facility] RBC Distrib Width 15.4 (H) 11.8 - 04/21/2018 [facility] 14.5 % 1:44 PM CDT [facility] Platelet Count 251 135 - 317 04/21/2018 [facility] x10(9)/L 1:44 PM CDT [facility] Leukocytes 8.8 3.4 - 9.6 04/21/2018 [facility] x10(9)/L 1:44 PM CDT [facility] Neutrophils 5.90 1.56 - 04/21/2018 [facility] 6.45 1:44 PM CDT [facility]ALTH x10(9)/L [facility] Lymphocytes 1.91 0.95 - 04/21/2018 [facility] 3.07 1:44 PM CDT [facility] x10(9)/L [facility] Monocytes 0.78 0.26 - 04/21/2018 [facility] 0.81 1:44 PM CDT HEALTH x10(9)/L [facility] Eosinophils 0.15 0.03 - 04/21/2018 [facility] 0.48 1:44 PM CDT HEALTH x10(9)/L [facility] Basophils 0.05 0.01 - 04/21/2018 [facility] 0.08 1:44 PM CDT [facility] x10(9)/[facility] Specimen Anatomical Collection Method Collection Time Receive d Time (Source) Location / / Volume Laterality Blood (Blood, 04/21/2018 1:35 PM 04/21/20 18 1:37 Venous) CDT PM CDT Kelvin Narvaez APRNNEricka LAB BLOOD ADD-ON Performing Organization Address City/State/ZIP Code Phon e Number [facility] [address] [place] [address] [facility] documented in this encounter Visit Diagnoses Diagnosis Hemorrhage Gastrointestinal documented in this encounter Additional Health Concerns Assessment Noted Time PHQ-9 Depression Total Score: 18 02/14/2013 9:53 AM CD T documented as of this encounter Care Teams Glove Maker Relationship Specialty Start Date End Date Cintia Cobb M.D. PCP - General 02/19/17 02/20/[address] [place] [address] DREW Arellano [phone] documented as of this encounter
--- OUTSIDE RECORDS SUMMARY | 2022-08-05 10:14 | XMS_ITS | Encounter Summary ---
:1960 Author Organization [facility] Address [address] [place] [address] Care Team Providers Name Role Phone Cintia Cobb M.D. Primary Care Provider [phone] Reason for Visit Auth/Cert Specialty Diagnoses / Procedures Referred By Contact Refer red To Contact Diagnoses Pain Joint Fracture Hip Closed Initial Left (HCC) Hip Fracture Procedures n/a Referral ID Status Reason Start Date Expiration Date Visits Requ ested Visits Authorized [id number] 1 1 Encounter Details Date Type Department Care Team Description 08/13/2019 Surgery [facility] MAIN OR John Norman, OPEN REDUCTION INTERNAL [address] [place] [address] [address] [phone] [place] [address] (Wo rk) Social History Tobacco [...] Comments Blood Pressure 121/74 08/13/2019 4:18 AM MANAGER OF PRODUCTION Pulse 63 08/13/2019 4:18 AM MANAGER OF PRODUCTION Temperature 37.2 ??C (99 ??F) 08/13/2019 4:18 AM MANAGER OF PRODUCTION Respiratory Rate 18 08/13/2019 4:18 AM MANAGER OF PRODUCTION Oxygen Saturation 97% 08/13/2019 4:18 AM MANAGER OF PRODUCTION Inhaled Oxygen Concentration - - Weight 81 kg (178 lb 9.2 oz) 08/13/2019 4:31 AM MANAGER OF PRODUCTION Height 182.9 cm (6') 08/12/2019 12:43 PM MANAGER OF PRODUCTION Body Mass Index 23.98 08/12/2019 12:43 PM MANAGER OF PRODUCTION documented in this encounter Discharge Summaries Laz Dumont M.D. - 08/16/2019 12:00 PM CST DISCHARGE SUMMARY BRIEF OVERVIEW Discharge Provider: Laz Dumont M.D. Primary Care Providers: Cintia Cobb M.D. ([address] [address] Primary Care Provider Primary Care Provider Other [...] INTERNAL FIXATION LEFT FEMUR John Norman M.D. 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 Had surgery for repair on August 13 [...] and needs to get back to driving [employer] a soon as possible to help with [...] 45 minutes discharge care by me today GER OF PRODUCTION documented in this encounter Discharge Instructions Discharge Instr - Non [place] Plwwdj-KkeYjhjzl-Ephyflaobj, Becky - 08/16/2019 12:01 PM CST Please have Patient seen by PCP on rounds in 3-5 days. GER OF PRODUCTION documented in this encounter Medications at Time [...] Physical Therapy Inpatient Treatment SUBJECTIVE Patient's Name: Lza Luna Referring/Attending Provider: Laz Dumont M.D. Medical Diagnosis: Pain Joint [M25.50] Fracture Hip Closed Initial Left (HCC) [S72.002A] Reason for Referral: L hip fx Onset Date: 08/12/19 Payor: [facility] [place] CARE / Plan: [facility] [employer] HMO / Product Type: Medicaid HMO / [...] Activity Level: Answer: Up with Assistance 08/12/19 3234 OBJECTIVE Pain Assessment Pain Score: (not rated [...] min Functional G-code Worksheet Marya Paredes P.T.A. [facility], Third Floor [address] [facility] [address] Dept: [phone] GER OF PRODUCTION Associated attestation - Stephanie Diaz P.T. - 08/18/2019 7:58 AM MANAGER OF PRODUCTION Physical Therapy Dismissal Snapshot Patient was seen [...] Levar, and Dr. Dumont. OMAR confirmed with [facility] that thereare no beds today. OMAR [...] to go to short term rehab at [address] [place] [address] in [place] today. Ed contacted his , Julissa and confirmed that his friend can not transport until 3pm or later. SWS spoke with [facility] [place] [place]/[address] [place] [address] admissions and confirmed discharge today, by 12noon. Nurse Levar completed the Nurse to Nurse. SWS contacted [facility] and [employer] and they both are not available for transport today. SWS contacted [employer] and set up 12noon to transport. O: Discharge Planning for today to arrive no later than 3pm to [address] [place] [address] A: Ed was fully engaged in our conversation and open to going to a SNF upon discharge to decrease the time he is away from work for recovery. P: Discharge today - GER OF PRODUCTION Dumont, Laz Oakes M.D. 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 Patient definitely not interested in a half-way after hospitalization, particularly with experiences his mother had in prison facilities. Ed used a [employer] in [place] to start letter correspondences with dozens of Filipina women around 2003. Julissa, his , is from [facility] ([facility] near active [facility], [facility]). 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 Had surgery for repair on August 13 [...] help I still recommend it. He skipped [id number] last few months (thinks they cause diarrhea [...] he makes big strides he likely needs prison help. He is not open to discussing [...] care. Spoke with nurse, PT, social work. GER OF PRODUCTION Marya Paredes P.T.A. - 08/15/2019 11:26 AM CST Physical Therapy Inpatient Treatment SUBJECTIVE Patient's Name: Laz Cuauhtemoc Luna Referring/Attending Provider: Rahel Ashby M.D. 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 [facility], Third Floor [address] [facility] [address] Dept: [phone] GER OF PRODUCTION Ml Ha L.S.W. - 08/15/2019 11:10 AM [...] SWS passed this information onto Hillary Sotomayor/Nurse Licensing Registration Examiner. SWS Shared with Ed that a person [...] that he is not interested in any half-way or and followed up with [address] [place] [address]/ [place] [phone]., Fax: [phone]. O: Discharge planning continued, Ed was sitting up in the chair and fully engaged in the conversation A: Ed enjoys sarcastic humor and consistent communication. Ed becomes frustrated if he feels he is being misinformed. P: Discharge likely tomorrow, per Dr. Dumont. Transport to be determined. GER OF PRODUCTION Kacie Huerta APRN, C.N.P., D.N.P. - 08/15/2019 [...] aware. Will have him follow up in [place] with Orthopedics in 2 weeks. 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 Patient definitely not interested in a half-way after hospitalization, particularly with experiences his mother had in prison facilities. Ed used a [employer] in [place] to start letter correspondences with dozens of Filipina women around 2003. Julissa, his , is from [facility] near active [facility], [facility]). 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 Had surgery for repair on August 13 [...] with patient, 2 visits so far today. GER OF PRODUCTION Lacie Donaldson P.Randy. - 08/13/2019 12:48 PM CST Attempted to get patient up today. Patient continues to have numbness in legs. Will wait to start PTtomorrow 08/14/19. GER OF PRODUCTION Alyssa Shepherd O.T. - 08/13/2019 11:43 AM [...] mg (LOVENOX) 08/14/2019 40 mg, subcutaneous, Daily GER OF PRODUCTION documented in this encounter H&P Notes John [...] precede with surgical treatment. John Norman M.D. GER OF PRODUCTION Source Note - Juliette Bettencourt APRN, C.N.P., D.N.P. - 08/12/2019 2:22 PM MANAGER OF PRODUCTION SUBJECTIVE CHIEF COMPLAINT Mr. Laz Luna is a 59 y.o. male who presents with left hip pain. HISTORY OF PRESENT ILLNESS Patient transferred from [place] emergency room this afternoon. Patient works by [employer] and fell on ice while loading his [...] but plans on getting a ride to [facility] tomorrow. Patient scheduled for the following [...] Surgeon: Rene Carlson M.D.; Location: [facility] GI LAB ??? LAPAROSCOPIC ASSISTED - [...] education level: None Occupational History ??? 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 ASSESSMENT / PLAN #1 Fracture Hip [...] of plan of care, chart review, and wmmd-do-saob interview. GER OF PRODUCTION Juliette Bettencourt APRN, C.N.P., D.N.P. - 08/12/2019 2:22 PM CST SUBJECTIVE CHIEF COMPLAINT Mr. Laz Luna is a 59 y.o. male who presents with left hip pain. HISTORY OF PRESENT ILLNESS Patient transferred from [place] emergency room this afternoon. Patient works by [employer] and fell on ice while loading his [...] but plans on getting a ride to [facility] tomorrow. Patient scheduled for the following [...] Surgeon: Rene Carlson M.D.; Location: [facility] GI LAB ??? LAPAROSCOPIC ASSISTED - [...] education level: None Occupational History ??? 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 ASSESSMENT / PLAN #1 Fracture Hip [...] of plan of care, chart review, and azlz-cv-zmhp interview. GER OF PRODUCTION documented in this encounter Consult Notes Alyssa [...] L hip fx Onset Date: 08/12/19 Payor: [employer] [facility] CARE / Plan: [facility] HMO / Product Type: Medicaid HMO [...] Surgeon: Rene Carlson M.D.; Location: [facility] GI LAB ??? LAPAROSCOPIC ASSISTED - GASTRIC BYPASS N/A 11/21/2014 Laparoscopic assisted - Gastric bypass ??? OPEN REDUCTION INTERNAL FIXATION FEMUR Left 08/13/2019 Procedure: OPEN REDUCTION INTERNAL FIXATION LEFT FEMUR; Surgeon: John Norman M.D.; Location:[facility] OR ??? OTHER CONVERTED SHX (SEE COMMENT) N/A 01/19/2017 >Implantation of dual-chamber permanent pacemaker. ??? OTHER SURGICAL HISTORY cystoscopy ??? UPPER GASTROINTESTINAL ENDOSCOPY N/A 11/21/2014 Upper gastrointestinal endoscopy History of Present Illness: Patient slipped and fell on the ice. 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 [facility]'s 3-year data, as reported at [facility] 2017, indicates a cut off of 39.4 or greater in daily activity is a fair to good accurate prediction of discharge home. Source: AM-PAC ???6 -Clicks?? functional assessment scores predict acute care hospital discharge destination. Break Out Worker. 2014 May; 94 (9): 1252-61. 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 Currently, patient presents with impairments including R hip fx c ORIF completed 08/13/19 resulting in the following functional deficits: impaired ADL/IADL and functional/ADL transfers. Laz Luna is a 59 y.o. year old direct admit to [facility] [place] [facility] following a fall on ice resulting in R hip fracture requiring ORIF completed 08/13/19, admission 08/12/19. Today, Mr. Laz Luna actively participated in education regarding regaining PLOF c basic ADL. Educated in WBAT status. Educatedin adaptive equipment for regaining self care independence. Reports has long telephone maintenance mechanic and long shoe horn at home from [...] like to get back to work in [facility], does state he would not be able [...] toileting safety in a.m. Bathroom Safety Sheet [id number] provided as patient education with recommendations written [...] Daily Activities CMS Modifier: MARYJO Shepherd O.T. [facility], Third Floor [address] [facility] [address] Dept: [phone] GER OF PRODUCTION Lacie Donaldson P.T. - 08/14/2019 10:45 AM CST Consults Physical Therapy Inpatient Evaluation/Treatment SUBJECTIVE Patient's Name: Laz Luna Referring/Attending Provider: Rahel Ashby M.D. Medical Diagnosis: Pain Joint [M25.50] Fracture Hip Closed Initial Left (HCC) [S72.002A] Reason for Referral: L hip fx Onset Date: 08/12/19 Payor: [employer] [facility] / Plan: [employer] / Product Type: Medicaid O / [...] Surgeon: Rene Carlson M.D.; Location: [facility] GI LAB ??? LAPAROSCOPIC ASSISTED - GASTRIC BYPASS N/A 11/21/2014 Laparoscopic assisted - Gastric bypass ??? OTHER CONVERTED SHX (SEE COMMENT) N/A 01/19/2017 >Implantation of dual-chamber permanent pacemaker. ??? OTHER SURGICAL HISTORY cystoscopy ??? UPPER GASTROINTESTINAL ENDOSCOPY N/A 11/21/2014 Upper gastrointestinal endoscopy History of Present Illness: Patient slipped and fell on the ice. 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 [facility], Third Floor [address] [facility] [address] Dept: [phone] GER OF PRODUCTION Ml Ha L.S.W. - 08/12/2019 3:45 PM CST Discharge Planning Assessment SUBJECTIVE Referral Data Referral Source: Early Screen for Discharge Planning Referral Reason: (59 year old, Admit Diagnosis: Hip Fracture) Who was present during the interview?: Patient Print Shop Chief Clerk Services Used: No Psychosocial assessment, Coping, adjustment [...] Patient Information Primary Caregiver: Self(Spouse Julissa h: [phone], c:[phone], supportive neighbors and friends) Legal Information Legal [...] the basement) Support Systems: (Spouse Julissa h: [phone], c:[phone], supportive neighbors and friends) Anticipated Discharge Destination: Jail Care or Intermediate Care Facility Recommended Discharge [...] he could likely do outpatient PT in [place] at [address] [place] [address], if he would prefer a location closer than [place]. He stated that he may prefer to stay in the [facility] and [place] is the closest. He stated that he is open to [facility] sending a referral to [address] [place] [address] to determine if they have the ability to do outpatient PT for him or any other services. SWS received notice from [address] [place] [address] has accepted him for admission for short term rehab. SWS sent a message to [address] [place] [address] asking what outpatient PT services they provide. Discussed transportation options with patient and , including using a private vehicle, privately paying for a mobility van $50 or more and non-emergent ambulance. Social Work Services ([facility]) advised that if insurance does not cover the charge for non-emergent ambulance, it could be a minimum of $3,000 private pay. SWS explained that our physicians have documented the medical need for the transport, although, that does not assure coverage. The patient plans to discharge via friend or neighbor, becausehis Julissa does not drive. Social Work Services ([facility]) contact information, including a phone number, was provided to patient, if any need or questions arise. He plans to discharge to home and drive home if needed. Signed by: Maria Guadalupe Feng 08/12/2019 GER OF PRODUCTION documented in this encounter Nursing Notes Anika [...] as needed- d/c to 3 links in [place]. Denise Morris R.N. - 08/16/2019 5:16 AM [...] Tylenol & Oxycodone for adequate pain control. GER OF PRODUCTION Desirae Veras R.N. - 08/14/2019 6:39 PM [...] encouraged per self and he refuses assistance. GER OF PRODUCTION Ella Milan RAugustine - 08/14/2019 5:18 AM [...] CST PAS completed and sent to [facility]. PAS [id number] GER OF PRODUCTION Hanny Dowling R.N. - 08/13/2019 10:24 AM CST Patient became very agitated with nurse after she called him sir at the beginning of shift. Patient requested that he has a new nurse. Biological Chemist was notified and spoke to the patient [...] need for pain meds. NPO since midnight GER OF PRODUCTION Ellen Horne R.N. - 08/12/2019 6:18 PM CST Shift Goals: Patient to remain free from falls Identify possible barriers to meeting goals/advancing plan of care: none End of Shift Summary: Patient remained free of falls this shift. GER OF PRODUCTION documented in this encounter OR Notes Op Note - John Norman M.D. - 08/13/2019 7:48 AM CST FULL OP NOTE Procedure(s) (LRB): OPEN REDUCTION INTERNAL FIXATION LEFT FEMUR (Left) Surgeon(s) and Role: * John Norman M.D. - Primary Communications Professor: Lesli Zuñiga L.P.N. Anesthesia Type Regional Pre-operative Diagnosis Fracture Hip Intertrochanteric Closed Initial Left (HCC) Post-operative Diagnosis Fracture Hip Intertrochanteric Closed Initial Left (HCC) Full Operative Note Details PROCEDURE(S) Open reduction, intramedullary fixation of left intertrochanteric femur fracture. SURGEON(S) John Norman M.D. CONDUCTOR/ENGINEER: None. ANESTHESIA TYPE Spinal anesthesia. PRE-OPERATIVE DIAGNOSIS [...] closed using #1 Vicryl in an interrupted clhwrf-zp-xcetc fashion, followed by copious irrigation. Subcutaneous tissue [...] Implant Name Type Inv. Item Serial No. Vp Global Lot No. LRB No. Used NL FEM TFN RT 130D [id number] - SNA - [id number] Hardware e.g. pins/screws/rods NL FEM TFN RT 130D [id number] NA [employer]s [id number] Left [address] 10.5X110 - SNA - [id number] Hardware e.g. pins/screws/rods SCRW TFN FEN ST 10.5X110 NA [employer] Synthes [id number] Left 1 SCRW LCK [facility] TI T25 5X38 - [id number] Hardware e.g. pins/screws/rods SCRW [facility] T25 5X38 Depuy Synthes Left 1 Intra-op Medications Date/Time Order Dose Route Action Action by 08/13/2019 0901 ceFAZolin in NaCl 0.9 % IVPB 2 g (ANCEF) intravenous Anesthesia Volume Adjustment Kalia Luna 08/13/2019 0727 ceFAZolin in NaCl 0.9 % IVPB 2 g (ANCEF) 2 g intravenous Given Kalia Luna M.D. GER OF PRODUCTION Brief Op Note - John Norman M.D. - 08/13/2019 7:48 AM CST BRIEF OP NOTE Procedure(s) (LRB): OPEN REDUCTION INTERNAL FIXATION LEFT FEMUR (Left) Surgeon(s) and Role: * John Norman M.D. - Primary Communications Professor: Lesli Zuñiga L.P.N. Anesthesia Type Regional Pre-operative Diagnosis Fracture Hip Intertrochanteric Closed Initial Left (HCC) Post-operative Diagnosis Fracture Hip Intertrochanteric Closed Initial Left (HCC) Brief Operative Note Details Specimens None Drains None Estimated Blood Loss None Implants Implant Name Type Inv. Item Serial No. Vp Global Lot No. LRB No. Used NL FEM TFN RT 130D [id number] - SNA - [id number] Hardware e.g. pins/screws/rods NL FEM TFN RT 130D [id number] NA [employer] [id number] Left [address] 10.5X110 - SNA - [id number] Hardware e.g. pins/screws/rods SCRW TFN FEN ST 10.5X110 NA [employer] Synthes [id number] Left 1 SCRW LCK [place] TI T25 5X38 - [id number] Hardware e.g. pins/screws/rods SCRW LCK [place] TI T25 5X38 Depuy Synthes Left 1 John Norman M.D. GER OF PRODUCTION documented in this encounter Miscellaneous Notes Hospital Course - Rahel Ashby M.D. - 08/13/2019 12:26 PM CST 59 y/o male who presented to the ED with left hip pain workup revealed nondisplaced left intertrochanteric trochanteric fracture. Patient also has anemia of chronic disease 08/13 s/p ORIF, trend hemoglobin. GER OF PRODUCTION documented in this encounter Plan of Treatment Not on filedocumented as of this encounter Procedures Procedure Name Priority Date/Time Associated Diagnosis Comme nts ADULT OXYGEN Routine 08/15/2019 8:00 THERAPY AM MANAGER OF PRODUCTION ADULT OXYGEN Routine 08/14/2019 8:01 THERAPY PM MANAGER OF PRODUCTION ADULT OXYGEN Routine 08/14/2019 8:01 THERAPY AM MANAGER OF PRODUCTION IRON AND TOT Routine 08/14/2019 6:00 Results for IRON-BINDING AM MANAGER OF PRODUCTION this procedure CAPACITY, S/P are in the results section. HEMOGLOBIN, B Routine 08/14/2019 6:00 Results for AM MANAGER OF PRODUCTION this procedure are in the results section. VITAMIN B12 Routine 08/14/2019 6:00 Results for ASSAY, S AM MANAGER OF PRODUCTION this procedure are in the results section. ADULT OXYGEN Routine 08/13/2019 8:01 THERAPY PM MANAGER OF PRODUCTION ADULT OXYGEN Routine 08/13/2019 9:13 THERAPY AM MANAGER OF PRODUCTION ADULT OXYGEN Routine 08/13/2019 9:13 THERAPY AM MANAGER OF PRODUCTION FL FLUORO LESS RAD - Routine 08/13/2019 8:43 Results f or THAN 1 HOUR (most inpatients AM MANAGER OF PRODUCTION this proced ure and all are in the outpatients) results section. OPEN REDUCTION 08/13/2019 7:07 Fracture Hip INTERNAL AM MANAGER OF PRODUCTION Intertrochanteric FIXATION FEMUR Closed Initial Left (HCC) CBC WITH Routine 08/13/2019 6:06 Results for DIFFERENTIAL, B AM MANAGER OF PRODUCTION this procedu re are in the results section. GLUCOSE POCT, B Routine 08/13/2019 4:27 Results f or AM MANAGER OF PRODUCTION this procedure are in the results section. HEMOGLOBIN A1C, Routine 08/12/2019 1:17 Results f or B PM MANAGER OF PRODUCTION this procedure are in the results section. documented in this encounter Results (ABNORMAL) Vitamin B12 Assay (08/14/2019 6:00 AM MANAGER OF PRODUCTION) Analysis Performed At Patho logist Time Signature Vitamin B12 >2000 (H) 232 - 1245 08/14/2019 ECL[facility] Assay, S ng/L 3:11 PM MANAGER OF PRODUCTION Comment: Biotin has been identified by the [facility] as a potential interfering substance. ??Higher concentr ations of biotin may be found in multivitamins, hair/nail supple ments, and workout supplements. ??If the result does not [facility] clinical observations, repeat testing after patient refrains fr om the use of supplements for at least 12 hours. Specimen Anatomical Collection Method Collection Time Receive d Time (Source) Location / / Volume Laterality Blood (Blood, 08/14/2019 6:00 AM 08/14/20 19 2:21 Venous) MANAGER OF PRODUCTION PM MANAGER OF PRODUCTION Laz Dumont M.D. LAB BLOOD ADD-ON Performing Organization Address City/State/ZIP Code Phon e Number [facility]- [address] [place] [address] [phone] [facility] [place] [address] [address] (ABNORMAL) Iron and Total Iron-Binding Capacity (08/14/2019 6:00 AM MANAGER OF PRODUCTION) P athologist Signature Iron 15 (L) 50 - 150 08/14/2019 [facility] mcg/dL 6:49 AM MANAGER OF PRODUCTION Total Iron 260 250 - 400 08/14/2019 [facility] Binding mcg/dL 6:49 AM MANAGER OF PRODUCTION Capacity Percent 6 (L) 14 - 50 % 08/14/2019 [facility] Saturation 6:49 AM MANAGER OF PRODUCTION Specimen Anatomical Collection Method Collection Time Receive d Time (Source) Location / / Volume Laterality Blood (Blood, 08/14/2019 6:00 AM 08/14/20 19 6:20 Venous) MANAGER OF PRODUCTION AM MANAGER OF PRODUCTION Laz Dumont M.D. LAB BLOOD ADD-ON Performing Organization Address City/State/ZIP Code Phon e Number [facility]- [address] [place] [address] [address] [employer] [place] [address] System in [place] [address] [place] (ABNORMAL) Hemoglobin (08/14/2019 6:00 AM MANAGER OF PRODUCTION) P athologist Signature Hemoglobin 7.5 (L) 13.2 - 16.6 08/14/2019 [facility] g/dL 6:23 AM MANAGER OF PRODUCTION Specimen Anatomical Collection Method Collection Time Receive d Time (Source) Location / / Volume Laterality Blood (Blood, 08/14/2019 6:00 AM 08/14/20 19 6:20 Venous) MANAGER OF PRODUCTION AM MANAGER OF PRODUCTION John Norman M.D. LAB BLOOD ADD-ON Performing Organization Address City/State/ZIP Code Phon e Number [facility]- [address] [place] [address] [facility] [place] [address] System in [place] [address] [place] Fluoro Less Than 1 Hour (08/13/2019 8:43 AM MANAGER OF PRODUCTION) Specimen (Source) Anatomical Location Collection Method / Collectio n Time Received Time / Laterality Volume Narrative 8000 LOS SEMN - 08/13/2019 8:45 AM MANAGER OF PRODUCTION This exam does not require a radiologist review or interpretation. Please refer to the patient's medical record on this date for clinical details. John Norman M.D. IMG FLUOROSCOPY PROCEDURES Performing Organization Address City/State/ZIP Code Phon e Number 8000 [facility] [place] (ABNORMAL) CBC with Differential (08/13/2019 6:06 AM MANAGER OF PRODUCTION) [facility] Method Time Signature Hemoglobin 8.1 (L) 13.2 - 08/13/2019 [facility] 16.6 g/dL 6:32 AM MANAGER OF PRODUCTION Hematocrit 28.0 (L) 38.3 - 08/13/2019 [facility] 48.6 % 6:32 AM MANAGER OF PRODUCTION Erythrocytes 3.48 (L) 4.35 - 08/13/2019 [facility] 5.65 6:32 AM MANAGER OF PRODUCTION x10(12)/L MCV 80.5 78.2 - 08/13/2019 [facility] 97.9 fL 6:32 AM MANAGER OF PRODUCTION RBC Distrib Width 17.9 (H) 11.8 - 08/13/2019 [facility] 14.5 % 6:32 AM MANAGER OF PRODUCTION Platelet Count 179 135 - 317 08/13/2019 [facility] x10(9)/L 6:32 AM MANAGER OF PRODUCTION Leukocytes 6.7 3.4 - 9.6 08/13/2019 [facility] x10(9)/L 6:32 AM MANAGER OF PRODUCTION Neutrophils 5.06 1.56 - 08/13/2019 [facility] 6.45 6:32 AM MANAGER OF PRODUCTION x10(9)/L Lymphocytes 0.84 (L) 0.95 - 08/13/2019 [facility] 3.07 6:32 AM MANAGER OF PRODUCTION x10(9)/L Monocytes 0.73 0.26 - 08/13/2019 [facility] 0.81 6:32 AM MANAGER OF PRODUCTION x10(9)/L Eosinophils 0.06 0.03 - 08/13/2019 [facility] 0.48 6:32 AM MANAGER OF PRODUCTION x10(9)/L Basophils 0.03 0.01 - 08/13/2019 [facility] 0.08 6:32 AM MANAGER OF PRODUCTION x10(9)/L Specimen Anatomical Collection Method Collection Time Receive d Time (Source) Location / / Volume Laterality Blood (Blood, 08/13/2019 6:06 AM 08/13/20 19 6:28 Venous) MANAGER OF PRODUCTION AM MANAGER OF PRODUCTION Isaac Tompkins APRN.P., FidelNPiliP. LAB BLOOD ADD-ON Performing Organization Address City/State/ZIP Code Phon e Number [facility]- [address] [place] [address] [facility] [place] [address] System in [place] [address] Glucose, POCT (08/13/2019 4:27 AM MANAGER OF PRODUCTION) athologist Signature Glucose, POCT, 101 70 - 140 08/13/2019 [facility] B mg/dL 4:27 AM MANAGER OF PRODUCTION Specimen Anatomical Collection Method Collection Time Receive d Time (Source) Location / / Volume Laterality Blood 08/13/2019 4:27 AM 9 4:34 MANAGER OF PRODUCTION AM MANAGER OF PRODUCTION Generic Rals LAB POCT ORDERABLES-MANUAL Performing Organization Address City/[facility]/ZIP Code Phon e Number [facility]- [address] [place] [place] [address] [place] [address] System in [place] [address] (ABNORMAL) Hemoglobin A1c (08/12/2019 1:17 PM MANAGER OF PRODUCTION) athologist Signature Hemoglobin A1c, 5.7 (H) 4.2 - 5.6 08/12/2019 [facility] B % 1:43 PM MANAGER OF PRODUCTION Comment: Hemoglobin A1c values of 5.7-6.4 percent indicate an increased risk for developing diabetes m ellitus. In diabetic patients, HbA1c goals should be discussed with healthcare provider. Specimen Anatomical Collection Method Collection Time Receive d Time (Source) Location / / Volume Laterality Blood (Blood, 08/12/2019 1:17 PM 08/12/20 19 1:28 Venous) MANAGER OF PRODUCTION PM MANAGER OF PRODUCTION John Norman M.D. LAB BLOOD ADD-ON Performing Organization Address City/State/ZIP Code Phon e Number [facility]- [address] [place], [place] [address] [facility] [place] [address] System in [place] [address] documented in this encounter Visit Diagnoses Diagnosis [...] tablet 1,000 mg Given 08/16/2019 9:00 AM MANAGER OF PRODUCTION 1,000 mg (TYLENOL) 1,000 mg, oral, 3 times daily PRN, mild pain or score 1-3 of 10, headaches, fever, Starting on Thu08/12/19 at 1403 Given 08/15/2019 6:32 PM MANAGER OF PRODUCTION 1,000 mg Given 08/15/2019 8:46 AM MANAGER OF PRODUCTION 1,000 mg allopurinol tablet 300 mg (ZYLOPRIM) Given 08/16/2019 6:22 AM MANAGER OF PRODUCTION 300 mg 300 mg, oral, Daily at bedtime, First dose (after last modification) on Thu08/16/19 at 0630 calcium carbonate chewable tablet Given 08/16/2019 6:0 9 AM MANAGER OF PRODUCTION 400 mg of calcium 400 mg of calcium (TUMS) 400 mg of calcium, oral, 2 times daily, First dose on Thu08/12/19 at 2100, Doses listed are in mg of elemental calcium. Take with food. 500 mg calcium carbonate contains 200 mg of elemental calcium. Given 08/15/2019 6:32 AM MANAGER OF PRODUCTION 400 mg of calcium Given 08/14/2019 5:25 PM MANAGER OF PRODUCTION 400 mg of calcium calcium carbonate chewable tablet Given 08/15/2019 5:4 3 PM MANAGER OF PRODUCTION 400 mg of calcium 400 mg of calcium (TUMS) 400 mg of calcium, oral, Every 2 hour PRN, heartburn, indigestion, Starting on Thu08/12/19 at 1413, Doses listed are in mg of elemental calcium. Take with food. 500 mg calcium carbonate contains 200 mg of elemental calcium. Given 08/13/2019 5:35 PM MANAGER OF PRODUCTION 400 mg of calcium ferrous sulfate tablet 65 mg of iron 65 mg of iron, oral, Daily, First dose o n 08/14/19 at 1315, 325 mg contains 65 mg of elemental iron. furosemide tablet 40 mg (LASIX) Given 08/15/2019 5:43 PM MANAGER OF PRODUCTION 40 mg 40 mg, oral, Daily before dinner, First dose on Thu08/12/19 at 1600 Given 08/14/2019 5:25 PM MANAGER OF PRODUCTION 40 mg Given 08/13/2019 5:33 PM MANAGER OF PRODUCTION 40 mg morphine injection 2 mg Given 08/15/2019 8:45 AM MANAGER OF PRODUCTION 2 mg 2 mg, intravenous, Every 2 hour PRN, severe pain or score 7-10 of 10, breakthrough pain, Starting on Thu08/12/19 at 1413, For breakthrough pain unrelieved 30 minutes after PRN oral pain medication is used or if unable to take oral pain medication. oxyCODONE IR tablet 10 mg (ROXICODONE) Given 08/16/2019 9:00 AM MANAGER OF PRODUCTION 10 mg 10 mg, oral, Every 4 hours PRN, severe pain or score 7-10 of 10, Starting on 08/13/19 at 0942, Second line therapy. If patient is greater than 7 after 2 hours, call service for new order. Given 08/15/2019 6:32 PM MANAGER OF PRODUCTION 10 mg Given 08/15/2019 1:31 PM MANAGER OF PRODUCTION 10 mg oxyCODONE IR tablet 5 mg (ROXICODONE) 5 mg, oral, Every 4 hours PRN, moderate pain or score 4-6 of 10, Starting on 08/13/19 at 0942, Second line therapy pantoprazole DR tablet 40 mg (PROTONIX) Given 08/16/2019 6:09 AM MANAGER OF PRODUCTION 40 mg 40 mg, oral, Daily before breakfast, First dose on 08/13/19 at 0700, pantoprazole 40 mg oral daily was interchanged for omeprazole 20 or 40 mg oral daily Swallow whole. Do NOT crush, chew, or split tablet. Given 08/15/2019 6:30 AM MANAGER OF PRODUCTION 40 mg Given 08/14/2019 6:36 AM MANAGER OF PRODUCTION 40 mg pediatric qgsngtvuktxa-yphi-gfnscjhx Given 08/16/2019 6:09 AM CS T 4 tablets chewable tablet 4 tablet (FLINTSTONES COMPLETE) 4 tablet, oral, Daily, First dose (after last modification) on 08/15/19 at 0630 Given 08/15/2019 6:32 AM MANAGER OF PRODUCTION 4 tablets sodium chloride 0.9 % injection 10 mL Given 08/15/2019 8:46 AM MANAGER OF PRODUCTION 10 mL 10 mL, intravenous, As needed, line care, Starting on Thu08/12/19 at 1410, Peripheral Intravenous Catheter and Rapid Infusion Catheter, prior to blood sampling, post blood transfusion or post blood sampling sodium chloride 0.9 % injection 3 mL Given 08/15/2019 10:09 PM MANAGER OF PRODUCTION 3 mL 3 mL, intravenous, Every 12 hours scheduled, First dose on Thu08/12/19 at 2100, Peripheral Intravenous Catheter and Rapid Infusion Catheter, when no infusion to maintain patency Given 08/14/2019 8:18 PM MANAGER OF PRODUCTION 3 mL Given 08/12/2019 11:47 PM MANAGER OF PRODUCTION 3 mL tamsulosin 24 hr capsule 0.4 [...] Recently Administered Medications Times are shown in MANAGER OF PRODUCTION. Scheduled Medication Order 08/14/2019 08/15/2019 08/16/2019 allopurinol [...] NOT crush, chew, or split tablet. pediatric dfbwnqccpuvj-lcob-qtxmqjre shaina wable tablet 2 tablet (FLINTSTONES COMPLETE) (CANCELED) 0902 (Given - Provider: Desirae Veras R.N.) 2 tablet, oral, Daily, First dose on 08/13/19 at 0900 pediatric ilozbwgxqutj-ubqk-uxteryaj shaina wable tablet 2 tablet (FLINTSTONES COMPLETE) (COMPLETED) 1144 (Given - Provider: Desirae Veras R.N.) 2 tablet, oral, Once, On 08/14/19 at 1145, For 1 dose, For total AM dose of 4 tablets pediatric tqfpyoybenwd-fvyd-fvhvodfc shaina wable tablet 4 tablet (FLINTSTONES COMPLETE) [...] mg of calcium, oral, Every 2 hour TN N, heartburn, indigestion, Starting on Thu08/12/19 at [...] Provider: Desirae Veras RPiliN.)2017 (Given - Provider: lEla Milan RPiliNPili) 0.5 mg, intravenous, Every 5 [...] 10 mL 08 46 (Given - Provider: Vviiana Acosta R.N.) 10 mL, intravenous, As needed, [...] documented as of this encounter Care Teams Deflector Operator Relationship Specialty Start Date End Date Cintia Cobb M.D. PCP - General 02/19/17 02/20/[id number] [address] documented as of this encounter
--- OUTSIDE RECORDS SUMMARY | 2022-08-05 10:15 | XMS_ITS | Encounter Summary ---
:1960 Author Organization [facility] Address [address] [place] [address] Care Team Providers Name Role Phone Cintia Cobb M.D. Primary Care Provider [phone] Reason for Visit Reason Onset Date Comments CT Scan 04/08/2018 Encounter Details Date Type Department Care Team Description 04/08/2018 Clinical Communication Department of [facility] Scan Medicine, Jose Daniel Piper M.D. [address] [address] [place], [place] [phone] (Work) [phone] Social History Tobacco Use Types Packs/Day Years [...] pt calling pts 's phone number at [phone]. No answer, left voice message for pt to contact the clinic. Telephone Encounter - Jena Martell R.N. - 04/08/2018 10:24 AM CDT Scheduling informed RN that the number listed on his chart ([phone]) is an invalid number. RN tried to call pts home phone number of [phone] and is an invalid number. RN attempted to contact pt using his temporary number in his chart ([phone]), no answer, and isan invalid number. Telephone [...] documented as of this encounter Care Teams Equine Pharmacology Technician Relationship Specialty Start Date End Date Cintia Cobb M.D. PCP - General 02/19/17 02/20/[address] [place] [phone] documented as of this encounter
--- OUTSIDE RECORDS SUMMARY | 2022-08-05 10:15 | XMS_ITS | Encounter Summary ---
:1960 Author Organization [facility] Address [address] [place] [address] Care Team Providers Name Role Phone Cintia Cobb M.D. Primary Care Provider [phone] Reason for Visit Reason Comments Black or Bloody Stool since wed black tarry stools Encounter Details Date Type Department Care Team Description 04/12/2018 Emergency [place] Eugene Buncha ge Gastrointestinal (Primary Dx); Emergency Department Reed ALLEN M.D. Anemia; [address] [facility] [address] [address] [facility] [address]; [place], [place] [address] Diabetes Mellitus Type 2 Hyperglycemia ( HCC); [address] [place], [place] Hypoalbuminemia [phone] [address] (Wo rk) Social History Tobacco Use [...] . We will be transferring him to [place] with the intention of having him scoped [...] Dr. Jess Hernandez External Hospital or Facilty [facility] Eguene Bunch III, M.D. 04/12/18 1621 Lesli Sotomayor [...] Cells, 2 Units (04/12/2018 11:55 AM CDT) [facility] Method Time Signature Red Blood [id number] 04/13/2018 [facility] Cells Released 5:29 AM CDT [facility] Product Code ^-1 LR Red 04/13/2018 [facility] Blood Cells /500 5:29 AM CDT [facility] Donation [id number] 04/13/2018 [facility] Number 5:29 AM CDT [facility] [place] Barcoded [id number] 04/13/2018 [facility] Product Code 5:29 AM [facility] [place] Unit Status Not Available 04/13/2018 [facility] 5:29 AM [facility] [place] [facility] Unit [id number] 04/13/2018 [facility] Expiration 5:29 AM T [facility] [place] Unit ABO/Rh 6200 04/13/2018 [facility] 5:29 AM T [facility] [place] [facility] Unit ABO/Rh A POSITIVE [facility] [place] [facility] Specimen Anatomical Collection Method Collection Time Receive d Time (Source) Location / / Volume Laterality WB EDTA 04/12/2018 11:55 04/12/2018 AM CDT 12:03 PM CDT Eugene Bunch III, M.D. BLOOD BANK PRODUCT ORDE CATARINO Performing Organization Address [facility] Phon e Number [address] [address] [place] [facility] Type and screen (04/12/2018 11:55 AM CDT) [facility] Method Time Signature ABO Group A 04/12/2018 [facility] 12:30 PM CDT [facility] [place] Rh Type POS 04/12/2018 [facility] 12:31 PM T [facility] [facility] Antibody Screen NEG 04/12/2018 [facility] 12:43 PM T [facility] Type & Screen 04/15/2018 04/12/2018 [facility] Expiration 23:59 12:43 PM T [facility] [facility] ELXM Eligible N 04/12/2018 [facility] 12:43 PM T [facility] [facility] Specimen Anatomical Collection Method Collection Time Receive d Time (Source) Location / / Volume Laterality Blood 04/12/2018 11:55 04/12/2018 AM CDT 12:03 PM CDT Eugene Bunch III, M.D. LAB BLOOD BANK TEST ORD ERAPRETTY Performing Organization Address [facility] Phon e Number [address] [address] [place] [facility] Emergency blood uncrossmatched (04/12/2018 11:55 AM CDT) Patholo gist Method Time Signature Emergency EMBLD 04/12/2018 [facility] Blood Confirmed 12:39 PM CDT [facility] Specimen Anatomical Collection Method Collection Time Receive d Time (Source) Location / / Volume Laterality Blood (Blood, 04/12/2018 11:55 04/12/2018 Venous) AM CDT 11:57 AM CDT Eugene Bunch III, M.D. LAB BLOOD BANK TEST ORD ERABLES Performing Organization Address [facility] Phon e Number [place] [id number] [place] [facility] PT (Prothrombin Time) with INR (04/12/2018 11:23 AM CDT) athologist Signature Prothrombin 9.7 8.8 - 11.9 04/12/2018 [facility] Time, P sec 12:31 PM CDT [facility] INR 1.0 0.9 - 1.2 04/12/2018 [facility] 12:31 PM CDT [facility] Comment: Standard intensity warfarin therapeutic range: 2.0 to 3.0 High intensity warfarin therapeutic rang e: 2.5 to 3.5 Specimen Anatomical Collection Method Collection Time Receive d Time (Source) Location / / Volume Laterality Blood (Blood, 04/12/2018 11:23 04/12/2018 Venous) AM CDT 11:25 AM CDT Eugene Bunch III, M.D. LAB BLOOD ADD-ON Performing Organization Address [facility] Phon e Number [address] [address] [place] [facility] (ABNORMAL) Lactate (04/12/2018 11:23 AM CDT) P athologist Signature Lactate, P 3.1 (H) 0.5 - 2.2 04/12/2018 [facility] mmol/L 11:39 AM CDT [facility] Specimen Anatomical Collection Method Collection Time Receive d Time (Source) Location / / Volume Laterality Blood (Blood, 04/12/2018 11:23 04/12/2018 Venous) AM CDT 11:25 AM CDT Eugene Bunch III, M.D. LAB BLOOD NON ADD-ON Performing Organization Address City/State/ZIP Code Phon e Number [facility]- [address] [address] [place] [facility] (ABNORMAL) Comprehensive Metabolic Panel (04/12/2018 11:23 AM [facility]) P athologist Signature Potassium, P 3.8 3.6 - 5.2 04/12/2018 [facility] mmol/L 11:45 AM [facility] [place] [facility] Sodium, P 137 135 - 145 04/12/2018 [facility] mmol/L 11:45 AM [facility] Chloride, P 102 98 - 107 04/12/2018 [facility] mmol/L 11:45 AM [facility] Bicarbonate, P 23 22 - 29 04/12/2018 [facility] mmol/L 11:45 AM [facility] Anion Gap, P 12 7 - 15 04/12/2018 [facility] 11:45 AM [facility] [place] [facility] BUN (Blood Urea 88 (H) 8 - 24 04/12/2018 [facility] Nitrogen), P mg/dL 11:45 AM [facility] [place] [facility] Creatinine 1.22 0.74 - 04/12/2018 [facility] 1.35 mg/dL 11:45 AM [facility] [place] [facility] eGFR-Black/Afri 75 >=60 04/12/2018 [facility] can [place] mL/min/BSA 11:[address] [facility] [place] [facility] Comment: ----ADDITIONAL INFORMATION---- Estimated GFR calculated using the 2009 CKD_EPI creatinine equation. eGFR Non-Black/ 64 >=60 mL/min/BSA 04/12/2018 11:45 AM [facility] [place] [facility] [place] Comment: ----ADDITIONAL INFORMATION---- Estimated GFR calculated using the 2009 CKD_EPI creatinine equation. Calcium, Total, P 8.1 (L) 8.6 - 10.0 04/12/2018 11:45 AM [facility] mg/dL [facility] [place] [facility] Glucose, P 227 (H) 70 - 140 mg/dL 04/12/2018 11:45 AM [facility] Protein, Total, P 5.1 (L) 6.3 - 7.9 g/dL 04/12/2018 11:45 AM [facility] Albumin, P 2.9 (L) 3.5 - 5.0 g/dL 04/12/2018 11:45 AM [facility] Aspartate 12 8 - 48 U/L 04/12/2018 11:45 AM [facility] IC Aminotransferase (AST), P [facility] Alkaline Phosphatase, P 38 (L) 45 - 115 U/L 04/12/2018 11 :45 AM [facility] Alanine Aminotransferase 15 7 - 55 U/L 04/12/2018 11: 45 AM [facility] (ALT), [facility] LAB Bilirubin, Total, P <0.2 <=1.2 mg/dL 04/12/2018 11:45 A M [facility] Specimen Anatomical Collection Method Collection Time Receive d Time (Source) Location / / Volume Laterality Blood (Blood, 04/12/2018 11:23 04/12/2018 Venous) AM CDT 11:25 AM CDT Eugene Bunch III, M.D. LAB BLOOD ADD-ON Performing Organization Address City/State/[facility] Code Phon e Number [facility] [id number] [place] [id number] [place] [address] LAB (ABNORMAL) CBC with Differential (04/12/2018 11:23 AM CDT) [facility] Method Time Signature Hemoglobin 2.9 (CL) 13.2 - 04/12/2018 [facility] 16.6 g/dL 11:46 AM [facility] LAB Hematocrit 9.2 (L) 38.3 - 04/12/2018 [facility] 48.6 % 11:45 AM [facility] LAB Erythrocytes 0.95 (L) 4.35 - 04/12/2018 [facility] 5.65 11:45 AM [facility] x10(12)/L [facility] MCV 96.8 78.2 - 04/12/2018 [facility] 97.9 fL 11:45 AM [facility] LAB RBC Distrib Width 15.9 (H) 11.8 - 04/12/2018 [facility] 14.5 % 11:45 AM CDT [facility] Platelet Count 197 135 - 317 04/12/2018 [facility] x10(9)/L 11:45 AM CDT [facility] [place] [facility] Leukocytes 10.8 (H) 3.4 - 9.6 04/12/2018 [facility] x10(9)/L 11:45 AM CDT [facility] [place] [facility] Neutrophils 8.96 (H) 1.56 - 04/12/2018 [facility] 6.45 11:45 AM CDT [facility] x10(9)/[facility] Lymphocytes 1.13 0.95 - 04/12/2018 [facility] 3.07 11:45 AM CDT HEALTH x10(9)/L [facility] Monocytes 0.68 0.26 - 04/12/2018 [facility] 0.81 11:45 AM CDT HEALTH x10(9)/L [facility] Eosinophils 0.02 (L) 0.03 - 04/12/2018 [facility] 0.48 11:45 AM CDT [facility] x10(9)/[facility] Basophils 0.01 0.01 - 04/12/2018 [facility] 0.08 11:45 AM CDT [facility] x10(9)/L [facility] Specimen Anatomical Collection Method Collection Time Receive d Time (Source) Location / / Volume Laterality Blood (Blood, 04/12/2018 11:23 04/12/2018 Venous) AM CDT 11:25 AM CDT Eugene Bunch III, M.D. LAB BLOOD ADD-ON Performing Organization Address City/State/[facility] Code Phon e Number [facility]- [id number] [address] [place] [facility] documented in this encounter Visit Diagnoses [...] mL/hr, Admini ster over 30 Minutes, Once, On Thu04/12/18 at [...] As needed, line care , Starting on Thu04/12/18 at 1110, Peripheral Intravenous [...] documented as of this encounter Care Teams Enterprise Applications Manager Relationship Specialty Start Date End Date Cintia Cobb M.D. PCP - General 02/19/17 02/20/[address] [place] [phone] documented as of this encounter
--- OUTSIDE RECORDS SUMMARY | 2022-08-05 10:15 | XMS_ITS | Encounter Summary ---
:1960 Author Organization [facility] Address [address] [place] [address] Care Team Providers Name Role Phone Cintia Cobb M.D. Primary Care Provider [phone] Encounter Details Date Type Department Care Team Description 04/12/2018 Nurse Triage Department of [facility] Kathrin John R.N. Medicine, [facility], in [address] [place], [place] [address] [place] [address] [place] [address] [phone] Social History Tobacco Use Types Packs/Day Years [...] documented as of this encounter Care Teams Broom Maker Relationship Specialty Start Date End Date Cintia Cobb M.D. PCP - General 02/19/17 02/20/[id number] [phone] documented as of this encounter
--- OUTSIDE RECORDS SUMMARY | 2022-08-05 10:15 | XMS_ITS | Encounter Summary ---
:1960 Author Organization [facility] Address [address] [place] [address] Care Team Providers Name Role Phone Cintia Cobb M.D. Primary Care Provider [phone] Reason for Visit Reason Onset Date Comments RX PRIOR AUTHORIZATION 03/11/2018 DENIAL OF LYRICA Encounter Details Date Type Department Care Team Description 03/11/2018 Clinical [facility] Pari Song RX PRIOR Communication [facility] Cintia Copeland AUTHORIZATION [address] Feliz M.D. (DENIAL OF LYRICA ) [place] [id number] [place] [phone] [facility] [phone] [place] [address] Social History Tobacco Use Types [...] documented as of this encounter Care Teams Bilingual Medical Assistant Relationship Specialty Start Date End Date Cintia Cobb M.D. PCP - General 02/19/17 02/20/[address] [address] documented as of this encounter
--- OUTSIDE RECORDS SUMMARY | 2022-08-05 10:15 | XMS_ITS | Encounter Summary ---
:1960 Author Organization [facility] Address [address] [place] [address] Care Team Providers Name Role Phone Cintia Cobb M.D. Primary Care Provider [phone] Reason for Referral Outpatient (Routine) - Closed Specialty Diagnoses / Procedures Referred By Contact Refer red To Contact Diagnoses Hemorrhage Gastrointestinal Luis Varghese, [facility] HAKEEM, C.N.P. [address] [place] [address] Referral ID Status Reason Start Date Expiration Date Visits Requ ested Visits Authorized [id number] Closed 04/15/2018 04/15/2019 1 1 Scheduling Instructions [...] Expiration Date Visits Requ ested Visits Authorized [id number] 1 1 Encounter Details Date Type Department Care Team Description 04/12/2018 - [facility] Jess Shelby M.D. [address] [place] [id number] Hemorrhage Gastrointestinal (Primary Dx) ; 04/15/2018 Encounter Hospital, [facility] Luis Varghese APRN, C.N.P. [address] [place] [address] Gastric Bypass Status Post [facility], Third Floor [address] [place] [id number] Social History Tobacco Use Types Packs/Day Years [...] Primary Care Providers: Cintia Cobb M.D. (General) [address] [place] [phone] Primary Care Provider Primary Care Provider Admission Date: 04/12/2018 Discharge Date: 04/15/2018 PRINCIPAL DIAGNOSIS Gastrointestinal hemorrhage Acute blood loss anemia Headache SECONDARY DIAGNOSES Atrial fibrillation status post pacemaker placement Type 2 diabetes-resolved Status post gastric bypass Hypertension Operative Procedures: Scheduled (Monica), Completed (Comp) or Canceled (Can) Case IDs Date Procedure Surgeon Location Status [id number] 04/13/18 ESOPHAGOGASTRODUODENOSCOPY Omar Stone M.D. [facility] Comp No past medical history on file. Past Surgical History: Procedure Laterality Date ??? BYPASS OF STOMACH N/A 11/19/2014 Gastric bypass ??? CARDIAC PACEMAKER PLACEMENT ??? CHONDRECTOMY OF SPINE N/A 02/19/1989 Discectomy ??? CYSTOSCOPY kidney stone ??? ESOPHAGOGASTRODUODENOSCOPY N/A 04/13/2018 Procedure: ESOPHAGOGASTRODUODENOSCOPY; Surgeon: Omar Stone M.D.; Location: [facility] GI [...] Center 06/01/2018 6:30 PM Cintia Cobb M.D. [facility] SEMFei CFERWZ DISCHARGE MEDICATIONS Discharge Medications TAKE [...] COURSE 57-year-old male admitted to hospital through [place] [facility] with report of melena and [...] Everywhere. Acute Upper and Lower Gastrointestinal Bleeding (Niuean)Food Sources of Iron (Niuean)documented in this encounter Medications at Time of Discharge Medication Sig Dispensed Refills Start Date End Date PEDIATRIC MULTIVITAMIN Take 4 tablets by 0 2015 NO.76 ([place]ONES mouth daily. COMPLETE ORAL) acetaminophen (TYLENOL) Take 1,000 mg by 0 08/16/2019 500 mg tablet mouth 3 (three) times a day as needed for pain. sennosides-docusate Take 2 tablets by 0 08/12/2019 sodium (SENNA WITH mouth 2 (two) times DOCUSATE SODIUM) 8.6-50 a day. mg per tablet allopurinol Take 1 tablet (300 90 tablet [...] for 1 month then take daily indefinitely. documented as of this encounter Progress Notes Luis Varghese APRN, KelvinNDonna. 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 No skilled OT [...] CDT SUBJECTIVE The patient is located in [place] ICU, room 3109. I have seen, evaluated, [...] or assistance. BILLING: No charge. Job ID: [id number] documented in this encounter H&P Notes Luis Varghese APRN, C.NDonna. - 04/12/2018 5:25 PM CDT CHIEF COMPLAINT Black or bloody stools HISTORY OF PRESENT ILLNESS 57-year-old male admitted to hospital through [place] [facility] re-presented with 4-6 day history [...] amount of weight since that time. 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 Hemoglobin was found to be 2.9. Acute active Acute gastrointestinal bleeding. Most recent hemoglobin from February of this year was 10.6. Today 2.9. Patient did receive 2 units of packed red blood cells in [place] emergency department. Also given dose of intravenous [...] CDTAssociated Order(s): UPPER GI ENDOSCOPY [facility] [place] [facility] Patient Name: Noemí Luna Procedure Date: [...] healthy appearing mucosa. This was traversed. The fklrq-hw-qcnxtnu limb was characterized by healthy appearing mucosa. The dacelshe-fp-xioclaa limb was not examined as it could [...] disposition, GI bleed Onset Date: 04/12/18 Payor: [facility] CARE / Plan: [facility] [employer] HMO / Product Type: Medicaid HMO / [...] Procedure: ESOPHAGOGASTRODUODENOSCOPY; Surgeon: Omar Stone M.D.; Location: [facility] GI [...] History of Present Illness: Pt went to [facility] secondary to falling several days in a row. Determined pt had a GI bleed and was transferred to [place] for Surgery Prior Function / Occupational Profile Level of [place]: Independent with ADLs and functional transfers Lives [...] upon discharge. Reportedly not allowed back to [facility] due to his behavior. According to nursing, Ed has been behaving here overnight.) Who was present during the interview?: Patient, Spouse, Other (comment) (Spouse, Pipo([phone]-Ed scoulded Pipo for giving out this number, call his primary number/confirmed with Ed [phone]) neighbor was also present due to the fact that Pipo does not drive.) M[employer] Inspector Services Used: No Patient Information Primary Caregiver: Self Support System: Immediate family (, Pipo([phone]) Pipo wanted this workers card, although, Ed would not allow this worker to give it to her. Notified Pipo to call and ask for a hospital Patient Accounting Representative at the main number,) Legal Information (Retired) Legal Decision Maker: Self Caregiver Information Caregiver Name: Pipo Caregiver Relationship: Caregiver (should call [phone] first; this number should only be called [...] Communication: Can write, Talks, Understands speaking, Understands Niuean Environmental Supports Home Environment: (Ed refused Social [...] the nurses line. He presented to the [place] [facility] room with a hemoglobin of 2.9. [...] most of the history. 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 Noemí Luna's nurse regarding his disruptive behavior. Per Renetta, the primary nurse, this patient was refusing to go to CT, was refusing to get out of bed,and was being loud and abusive towards her and his spouse. This supervisor broadloom along with the hospitalist Jelena and the [...] wanted to be called he replied Her [place]. Patient was advised that she had call him Sir out of respect and several minutes were spent trying to convince him that sirwas not intended tameka disrespectful and that in no way was the nurse going to refer to him as her [place]. This patient did not appeared to be [...] a follow-up I contacted his Magali Luna ([phone]). Mrs. Luna stated she left because he [...] the room. The patient demanded that the supervisor broadloom speak with him about the staff members. He stated that nurse is no longer allowed in my room, and I will yudi this hospital if she comes in. The nurse obtained help from the supervisor broadloom and provider in dealing with the patients oppositional and demanding behaviors. The PCS and MACHINE FEEDER RAW STOCK had a lengthy discussion with the patient. The patient was assisted down to Radiology, where it took 1 complete hour for him to transfer to the CT scan and back. The patient was rather difficult during that time as well. He was accompanied by the NST. The MACHINE FEEDER RAW STOCK and nurse spoke with the patients , [...] to c/o severe headacheand blurry vision, bobby MACHINE FEEDER RAW STOCK notified and seen patient at bedside, see [...] of blood was complete upon arrival from [place]. documented in this encounter Plan of Treatment [...] CBC with Differential (04/21/2018 1:35 PM CDT) [facility] Method Time Signature Hemoglobin 8.4 (L) 13.2 - 04/21/2018 [facility] 16.6 g/dL 1:44 PM CDT [facility] Hematocrit 26.6 (L) 38.3 - 04/21/2018 [facility] 48.6 % 1:[address] [facility] Erythrocytes 2.99 (L) 4.35 - 04/21/2018 [facility] 5.65 1:44 PM CDT [facility] x10(12)/L [facility] MCV 89.0 78.2 - 04/21/2018 [facility] 97.9 fL 1:44 PM CDT [facility] RBC Distrib Width 15.4 (H) 11.8 - 04/21/2018 [facility] 14.5 % 1:44 PM CDT [facility] Platelet Count 251 135 - 317 04/21/2018 [facility] x10(9)/L 1:44 PM CDT [facility] Leukocytes 8.8 3.4 - 9.6 04/21/2018 [facility] x10(9)/L 1:[address] [facility] Neutrophils 5.90 1.56 - 04/21/2018 [facility] 6.45 1:44 PM CDT [facility] x10(9)/L [facility] Lymphocytes 1.91 0.95 - 04/21/2018 [facility] 3.07 1:44 PM CDT [facility] x10(9)/L [facility] Monocytes 0.78 0.26 - 04/21/2018 [facility] 0.81 1:44 PM CDT HEALTH x10(9)/L SYSTEM- [employer] LAB Eosinophils 0.15 0.03 - 04/21/2018 [facility] 0.48 1:44 PM CDT HEALTH x10(9)/L SYSTEM [employer] [facility] Basophils 0.05 0.01 - 04/21/2018 [facility] 0.08 1:44 PM CDT HEALTH x10(9)/L SYSTEM [employer] LAB Specimen Anatomical Collection Method Collection Time Receive d Time (Source) Location / / Volume Laterality Blood (Blood, 04/21/2018 1:35 PM 04/21/20 18 1:37 Venous) CDT PM CDT Luis Varghese APRN, C.N.P. LAB BLOOD ADD-ON Performing Organization Address City/State/ZIP Code Phon e Number [facility] [address] [place] [address] [place] LAB (ABNORMAL) CBC with Differential, Blood (04/15/2018 6:13 AM CDT) [facility] gist Method Time Signature Hemoglobin 7.4 (L) 13.2 - 04/15/2018 [facility] 16.6 g/dL 6:28 AM CDT [facility] [place] [facility] Hematocrit 22.8 (L) 38.3 - 04/15/2018 [facility] 48.6 % 6:28 AM T [facility] [place] [facility] Erythrocytes 2.65 (L) 4.35 - 04/15/2018 [facility] 5.65 6:28 AM CDT HEALTH x10(12)/L SYSTEM- [place] [facility] MCV 86.0 78.2 - 04/15/2018 [facility] 97.9 fL 6:28 AM T [facility] [place] [facility] RBC Distrib Width 18.4 (H) 11.8 - 04/15/2018 [facility] 14.5 % 6:28 AM T [facility] [place] [facility] Platelet Count 149 135 - 317 04/15/2018 [facility] x10(9)/L 6:28 AM [facility] [place] [facility] Leukocytes 7.3 3.4 - 9.6 04/15/2018 [facility] x10(9)/L 6:28 AM T [facility] [place] [facility] Neutrophils 5.04 1.56 - 04/15/2018 [facility] 6.45 6:28 AM CDT HEALTH x10(9)/L SYSTEM- [place] [facility] Lymphocytes 1.37 0.95 - 04/15/2018 [facility] 3.07 6:28 AM CDT HEALTH x10(9)/L SYSTEM- [place] [facility] Monocytes 0.69 0.26 - 04/15/2018 [facility] 0.81 6:28 AM CDT HEALTH x10(9)/L SYSTEM- [place] [facility] Eosinophils 0.16 0.03 - 04/15/2018 [facility] 0.48 6:28 AM CDT HEALTH x10(9)/L SYSTEM- [place] [facility] Basophils 0.02 0.01 - 04/15/2018 [facility] 0.08 6:28 AM CDT HEALTH x10(9)/L SYSTEM- [place] [facility] Specimen Anatomical Collection Method Collection Time Receive d Time (Source) Location / / Volume Laterality Blood (Blood, 04/15/2018 6:13 AM 04/15/20 18 6:23 Venous) CDT AM CDT Luis Varghese APRN, C.N.P. LAB BLOOD ADD-ON Performing Organization Address City/State/ZIP Code Phon e Number [facility] [address] [place] [address] [place] [facility] (ABNORMAL) Hemoglobin (04/14/2018 4:11 PM CDT) athologist Signature Hemoglobin 7.5 (L) 13.2 - 16.6 04/14/2018 [facility] g/dL 4:33 PM CDT [facility] [place] [facility] Specimen Anatomical Collection Method Collection Time Receive d Time (Source) Location / / Volume Laterality Blood (Blood, 04/14/2018 4:11 PM 04/14/20 18 4:30 Venous) CDT PM CDT Luis Varghese APRN, C.N.P. LAB BLOOD ADD-ON Performing Organization Address City/State/ZIP Code Phon e Number [facility] [address] [facility] [place] [address] [place] [facility] (ABNORMAL) BMP (Basic Metabolic Panel) (04/14/2018 5:55 AM CDT) athologist Signature Potassium, S 3.8 3.6 - 5.2 04/14/2018 [facility] mmol/L 6:49 AM CDT [facility] [place] [facility] Sodium, S 141 135 - 145 04/14/2018 [facility] mmol/L 6:49 AM CDT [facility] [place] [facility] Chloride, S 106 98 - 107 04/14/2018 [facility] mmol/L 6:49 AM CDT [facility] [place] [facility] Bicarbonate, S 27 22 - 29 04/14/2018 [facility] mmol/L 6:49 AM CDT [facility] [place] [facility] Anion Gap 8 7 - 15 04/14/2018 [facility] 6:49 AM [facility] BUN (Blood Urea 34 (H) 8 - 24 04/14/2018 [facility] Nitrogen), S mg/dL 6:49 AM [facility] Creatinine 0.98 0.74 - 04/14/2018 [facility] 1.35 mg/dL 6:49 AM [facility] eGFR-Non 84 >=60 04/14/2018 [facility] Black/ mL/min/BSA 6:49 AM [facility] Spanish [place] [facility] Comment: ----ADDITIONAL INFORMATION---- Estimated GFR calculated using the 2009 CKD_EPI creatinine equation. eGFR-Black/ >90 >=60 mL/min/BSA 2017 6:49 AM [facility] Comment: ----ADDITIONAL INFORMATION---- Estimated GFR calculated using the 2009 CKD_EPI creatinine equation. Calcium, Total, S 8.1 (L) 8.6 - 10.0 mg/dL 04/14/2018 6 :49 AM [facility] Glucose, S 149 (H) 70 - 140 mg/dL 04/14/2018 6:49 AM [facility] Specimen Anatomical Collection Method Collection Time Receive d Time (Source) Location / / Volume Laterality Blood (Blood, 04/14/2018 5:55 AM 04/14/20 18 6:10 Venous) CDT AM CDT Luis Varghese APRN, C.N.P. LAB BLOOD ADD-ON Performing Organization Address City/State/ZIP Code Phon e Number [facility] [address] [place] [address] [place] [facility] (ABNORMAL) CBC with Differential, Blood (04/14/2018 5:55 AM CDT) [facility] Method Time Signature Hemoglobin 7.0 (L) 13.2 - 04/14/2018 [facility] 16.6 g/dL 6:13 AM [facility] Hematocrit 21.8 (L) 38.3 - 04/14/2018 [facility] 48.6 % 6:13 AM [facility] Erythrocytes 2.48 (L) 4.35 - 04/14/2018 [facility] 5.65 6:13 AM CDT HEALTH x10(12)/L SYSTEM- [facility] [place] [facility] MCV 87.9 78.2 - 04/14/2018 [facility] 97.9 fL 6:13 AM T [facility] LAB RBC Distrib Width 19.3 (H) 11.8 - 04/14/2018 [facility] 14.5 % 6:13 AM T [facility] LAB Platelet Count 134 (L) 135 - 317 04/14/2018 [facility] x10(9)/L 6:13 AM CDT [facility] LAB Leukocytes 7.3 3.4 - 9.6 04/14/2018 [facility] x10(9)/L 6:13 AM T [facility] LAB Neutrophils 5.26 1.56 - 04/14/2018 [facility] 6.45 6:13 AM CDT HEALTH x10(9)/L [facility] [place] [facility] Lymphocytes 1.34 0.95 - 04/14/2018 [facility] 3.07 6:13 AM CDT [facility] x10(9)/L [facility] [place] [facility] Monocytes 0.63 0.26 - 04/14/2018 [facility] 0.81 6:13 AM CDT HEALTH x10(9)/L SYSTEM [place] [facility] Eosinophils 0.09 0.03 - 04/14/2018 [facility] 0.48 6:13 AM CDT HEALTH x10(9)/L [facility] [place] [facility] Basophils 0.01 0.01 - 04/14/2018 [facility] 0.08 6:13 AM CDT [facility] x10(9)/L [facility] Specimen Anatomical Collection Method Collection Time Receive d Time (Source) Location / / Volume Laterality Blood (Blood, 04/14/2018 5:55 AM 04/14/20 18 6:10 Venous) CDT AM CDT Luis Varghese APRN, C.N.P. LAB BLOOD ADD-ON Performing Organization Address City/State/ZIP Code Phon e Number [facility] [address] [place] [address] [address] Head Neck Angiogram with [...] Component Value Ref Test Analysis Performed At [facility] gist Range Method Time Signature PATHOLOGY Patient Name: NOEMÍ LUNA [facility] MR#: [id number] [facility] Submitting Physician: OMAR STONE MD [id number] Specimen #[id number] Performing Lab: ??[facility] ? [address] [place] [id number] Source: Stomach biopsy - R/O - Helicobacter [...] Organization Address City/State/ZIP Code Phon e Number [address] [address] UPPER GI ENDOSCOPY (04/13/2018 7:37 AM CDT) Specimen (Source) Anatomical Location Collection Method / Collectio n Time Received Time / Laterality Volume Narrative This result has an attachment that is no t available. Procedure Note Omar Stone M.D. - 04/13/2018 7:[address] [facility] [place] [facility] Patient Name: Noemí Luna Procedure Date: [...] y appearing mucosa. This was traversed. The sdwrz-eh-qjyetfm limb wa s characterized by healthy appearing mucosa. The jdtcucgo-ut-xcxlt um limb was not examined as it [...] Potassium, S 4.1 3.6 - 5.2 04/13/2018 [facility] mmol/L 6:[address] [facility] Sodium, S 144 135 - 145 04/13/2018 [facility] mmol/L 6:19 AM [facility] Chloride, S 108 (H) 98 - 107 04/13/2018 [facility] mmol/L 6:[address] [facility] Bicarbonate, S 25 22 - 29 04/13/2018 [facility] mmol/L 6:[address] [facility] Anion Gap 11 7 - 15 04/13/2018 [facility] 6:19 AM [facility] BUN (Blood Urea 63 (H) 8 - 24 04/13/2018 [facility] Nitrogen), S mg/dL 6:19 AM [facility] LAB Creatinine 1.14 0.74 - 04/13/2018 [facility] 1.35 mg/dL 6:[address] [facility] eGFR-Non 70 >=60 04/13/2018 [facility] Black/ mL/min/BSA 6:19 AM [facility] Comment: ----ADDITIONAL INFORMATION---- Estimated GFR calculated using the 2009 CKD_EPI creatinine equation. eGFR-Black/ 81 >=60 mL/min/BSA 2017 6:19 AM [facility] Comment: ----ADDITIONAL INFORMATION---- Estimated GFR calculated using the 2009 CKD_EPI creatinine equation. Calcium, Total, S 8.3 (L) 8.6 - 10.0 04/13/2018 6:19 AM [facility] mg/dL [facility] Glucose, S 176 (H) 70 - 140 mg/dL 04/13/2018 6:19 AM [facility] LAB Protein, Total, S 4.9 (L) 6.3 - 7.9 g/dL 04/13/2018 6:19 A M [facility] Albumin, S 3.3 (L) 3.5 - 5.0 g/dL 04/13/2018 6:19 AM [facility] Aspartate 12 8 - 48 U/L 04/13/2018 6:19 AM [facility] ([facility]), S [facility] Alkaline Phosphatase, S 41 (L) 45 - 115 U/L 04/13/2018 6: 19 AM [facility] Alanine Aminotransferase 13 7 - 55 U/L 04/13/2018 6:1 9 AM [facility] (ALT), S [facility] Bilirubin, Total, S 0.7 <=1.2 mg/dL 04/13/2018 6:19 AM [facility] LAB Specimen Anatomical Collection Method Collection Time Receive d Time (Source) Location / / Volume Laterality Blood (Blood, 04/13/2018 5:24 AM 04/13/20 18 5:34 Venous) CDT AM CDT Jess Hernandez M.D. LAB BLOOD ADD-ON Performing Organization Address City/State/ZIP Code Phon e Number [address] [place] [address] [place] [facility] (ABNORMAL) CBC without Differential (04/13/2018 5:23 AM CDT) [facility] Method Time Signature Hemoglobin 7.7 (L) 13.2 - 04/13/2018 [facility] 16.6 g/dL 5:37 AM [facility] Hematocrit 23.3 (L) 38.3 - 04/13/2018 [facility] 48.6 % 5:37 AM [facility] Erythrocytes 2.69 (L) 4.35 - 04/13/2018 [facility] 5.65 5:37 AM [facility] x10(12)/L [facility] MCV 86.6 78.2 - 04/13/2018 [facility] 97.9 fL 5:37 AM [facility] RBC Distrib Width 18.6 (H) 11.8 - 04/13/2018 [facility] 14.5 % 5:37 AM CDT [facility] [place] [facility] Platelet Count 147 135 - 317 04/13/2018 [facility] x10(9)/L 5:37 AM CDT [facility] [place] [facility] Leukocytes 9.4 3.4 - 9.6 04/13/2018 [facility] x10(9)/L 5:37 AM CDT [facility] [place] [facility] Specimen Anatomical Collection Method Collection Time Receive d Time (Source) Location / / Volume Laterality Blood (Blood, 04/13/2018 5:23 AM 04/13/20 18 5:34 Venous) CDT AM CDT Jess Hernandez M.D. LAB BLOOD ADD-ON Performing Organization Address City/State/ZIP Code Phon e Number [facility] [address] [place] [address] [place] [facility] Transfuse Red Blood Cells (04/13/2018 5:02 AM CDT) Kelvin Sadler APRNN.Tiigst., M.S.N. BLOOD TRANSFUSION O RDERABLES Transfuse Red Blood Cells : , 2 Units (04/13/2018 5:02 AM CDT) Kelvin Sadler APRNN.Tigist., M.S.N. BLOOD TRANSFUSION O RDERABLES Transfuse Red Blood Cells (04/13/2018 3:18 AM CDT) Kelvin Sadler APRNNDonna., M.S.N. BLOOD TRANSFUSION O RDERABLES (ABNORMAL) Hemoglobin (04/13/2018 12:33 AM CDT) P athologist Signature Hemoglobin 5.6 (CL) 13.2 - 16.6 04/13/2018 [facility] g/dL 12:44 AM CDT [facility] [place] [facility] Specimen Anatomical Collection Method Collection Time Receive d Time (Source) Location / / Volume Laterality Blood (Blood, 04/13/2018 12:33 04/13/2018 Venous) AM CDT 12:38 AM CDT Luis Varghese APRN, C.N.P. LAB BLOOD ADD-ON Performing Organization Address City/State/ZIP Code Phon e Number [facility] [address] [place] [address] [place] [facility] Transfuse Red Blood Cells (04/12/2018 9:35 PM CDT) Luis Varghese APRN, C.N.P. BLOOD TRANSFUSION ORDER DESEAN Transfuse Red Blood Cells : , 1 Units (04/12/2018 9:35 PM CDT) Luis Varghese APRN, C.N.P. BLOOD TRANSFUSION ORDER DESEAN Type and Screen (with reflex Antibody ID) (04/12/2018 5:52 PM CDT) Patholo gist Method Time Signature ABO Group A 04/12/2018 [facility] 6:15 PM CDT [facility] [place] [facility] Rh Type POS 04/12/2018 [facility] 6:15 PM CDT [facility] [place] [facility] Antibody Screen NEG 04/12/2018 [facility] 6:28 PM CDT [facility] Type & Screen 04/15/2018 04/12/2018 [facility] Expiration 23:59 6:28 PM CDT [facility] [place] [facility] ELXM Eligible Y 04/12/2018 [facility] 6:28 PM CDT [facility] Specimen Anatomical Collection Method Collection Time Receive d Time (Source) Location / / Volume Laterality Blood (Blood, 04/12/2018 5:52 PM 04/12/20 18 5:56 Venous) CDT PM CDT Omar Stone M.D. LAB BLOOD BANK TEST ORDERABL ES Performing Organization Address City/State/ZIP Code Phon e Number [facility] [address] [place] [address] [facility] (ABNORMAL) Hemoglobin (04/12/2018 4:50 PM CDT) P athologist Signature Hemoglobin 5.3 (CL) 13.2 - 16.6 04/12/2018 [facility] g/dL 5:02 PM CDT [facility] Specimen Anatomical Collection Method Collection Time Receive d Time (Source) Location / / Volume Laterality Blood (Blood, 04/12/2018 4:50 PM 04/12/20 18 4:54 Venous) CDT PM CDT Meme Narvaez APRNP. LAB BLOOD ADD-ON Performing Organization Address City/State/ZIP Code Phon e Number [facility] [address] [place] [address] LAB documented in this encounter Visit Diagnoses [...] Provider: Surendra Patino R.N.) 100 mL/hr, intravenous, Continuous, Starting on Thu04/12/18 at 16 30 PRN Medication Order 04/13/2018 04/14/2018 04/15/2018 acetaminophen [...] of 10, Starting on Thu04/12/18 at 1741 acetaminophen tablet 650 mg (TYLENOL) 0734 (NOV Hold - Provider: Transfer Provider, Automatic - Reason: Patient not available)0815 (NOV Unhold - Provider: Transfer Provider, Automatic) 650 mg, oral, Every 4 hours PRN, headaches, Starting on Thu at 1636 benzocaine 20 % mouth spray (HURRICAINE/TOPEX) (COMPLE TIN) 0743 (Given - Provider: Omar Stone M.D.) Code/trauma/sedation medication, Starting on Thu04/13/18 at 0743 fentaNYL injection (SUBLIMAZE) (COMPLETED) 0742 (Given - Provider: Gabriela Escalante R.N.) intravenous, Code/trauma/sedation medication, Starting on 03/24 at 0742 midazolam (PF) injection (VERSED) (COMPLETED) 0742 (Gi cora - Provider: Gabriela Escalante R.N.) Code/trauma/sedation medication, Starting on Thu04/13/18 at 0742 naloxone injection 0.2 mg (NARCAN) 0734 (NOV Hold - Pr ovider: Transfer Provider, Automatic - Reason: Patient not available)0815 (NOV Unhold - Provider: Transfer Provider, Automatic) 0.2 mg, intravenous, As needed, respirat ory depression, Starting on Thu04/12/18 at 1637, For respiratory rate less than 8 breaths per minute or RASS score of - 3, -4, -5. Apply oxygen to keep oxygen saturations greater than 90% and notify service. sodium chloride 0.9 % flush 55 mL (COMPLETED) 2104 (Gi cora - Provider: Snow Dunlap, R.T.(R)(CT), R.T.(R)) 55 mL, intravenous, Once in imaging, sergei e care, Starting on Thu04/13/18 at 1939, For [...] Automatic) 0908 (Given - Provider: Surendra rivas R.NPili)1658 (Given - Provider: Surendra Patino R.N.) 50 mg, oral, Every 6 hours PRN, moderate pain or score 4-6 of 10, Starting on Thu04/12/18 at 1636, Drug Monitoring Program: Pharmacist to adjust medication order based on comorbities and indication. No Frequency Medication Order 04/13/2018 04/14/2018 04/15/2018 iohexol (OMNIPAQUE) 350 mg iodine/mL solution - ADS Ov erride Pull (COMPLETED) 4331 (Given - Provider: Myriam Garcia(R)(CT), RLainey(R)) Starting on Thu04/13/18 at 1944, For 1 dose, Created by xuan delatorre documented in this encounter Additional Health Concerns Assessment Noted Time PHQ-9 Depression Total Score: 18 02/14/2013 9:53 AM CD T documented as of this encounter Care Teams Property Staff Accountant Relationship Specialty Start Date End Date Cintia Cobb M.D. PCP - General 02/19/17 02/20/[address] [place] [phone] documented as of this encounter
--- OUTSIDE RECORDS SUMMARY | 2022-08-05 10:15 | XMS_ITS | Encounter Summary ---
:1960 Author Organization [facility] Address [address] [place] [address] Care Team Providers Name Role Phone Cintia Cobb M.D. Primary Care Provider [phone] Reason for Visit Reason Comments Follow-up Outpatient (Routine) - Closed Specialty Diagnoses / Procedures Referred By Contact Refer red To Contact Family Medicine Cintia Cobb DREW Piper M.D. [address] [place] [address] [place] [phone] Referral ID Status Reason Start Date Expiration Date Visits Requ ested Visits Authorized [id number] Closed 12/22/2017 06/20/2018 1 1 Encounter Details Date Type Department Care Team Description 03/02/2018 Office Visit Department of [facility] Terri Cobb Mellitus Type 2 Peripheral Neuropathy (HCC) (Primary Dx); Merlyn Cabello M.D. Anemia Iron Deficiency; [facility], in [address] [place] [address] Hyperten mikey Essential Primary; [facility] Gastric Bypass Status Post; [facility] [place] Pacemaker Cardiac Status Pos t; [address] [place] [phone] Diabetes Mellitus Type 2 (HCC) [place] [phone] (Work) [phone] Social History Tobacco Use Types Packs/Day Years [...] Ferritin, S 44 30 - 400 03/03/2018 [facility] mcg/L 1:22 PM CDT [facility] Comment: Biotin has been identified by the [facility] as a potential interfering substance. ??Higher concentr ations of biotin may be found in multivitamins, hair/nail supple ments, and workout supplements. ??If the result does not [facility] clinical observations, repeat testing after patient refrains fr om the use of supplements for at least 12 hours. Specimen Anatomical Collection Method Collection Time Receive d Time (Source) Location / / Volume Laterality Blood (Blood, 03/02/2018 7:37 PM 03/03/20 18 Venous) CDT 12:50 PM CDT Cintia Copeland M.D. LAB BLOOD ADD-ON Performing Organization Address City/State/ZIP Code Phon e Number [facility] [address] [place] [address] [facility] (ABNORMAL) Hemoglobin (03/02/2018 7:37 PM CDT) athologist Signature Hemoglobin 10.6 (L) 13.2 - 16.6 03/02/2018 [facility] g/dL 8:02 PM CDT [facility] Specimen Anatomical Collection Method Collection Time Receive d Time (Source) Location / / Volume Laterality Blood (Blood, 03/02/2018 7:37 PM 03/02/20 18 7:44 Venous) CDT PM CDT Cintia Copeland M.D. LAB BLOOD ADD-ON Performing Organization Address City/State/ZIP Code Phon e Number [facility] [address] [place] [address] [place] [address] [facility] Lipid Panel (03/02/2018 7:37 PM CDT) athologist Signature Cholesterol, 139 mg/dL 03/02/2018 [facility] Total 8:26 PM CDT [facility] Comment: ----REFERENCE VALUE---- Desirable: < 200 Borderline high: 200 - 239 High: > or = 240 Triglycerides 40 mg/dL 03/02/2018 8:26 PM CDT [facility] Comment: ----REFERENCE VALUE---- Normal: <150 Borderline high: 150-199 High: 200-499 Very high: > or =500 Cholesterol, HDL, S 56 >=40 mg/dL 03/02/2018 8:26 PM CDT [facility] Calculated LDL 75 mg/dL 03/02/2018 8:26 PM CDT [facility] Comment: ----REFERENCE VALUE---- Desirable: <100 Above Desirable: 100-129 Borderline high: 130-159 High: 160-189 Very high: > or =190 Cholesterol, Non-HDL, 83 mg/dL 03/02/2018 8:26 PM [facility]T [facility] Comment: ----REFERENCE VALUE---- Desirable: <130 Above Desirable: 130-159 Borderline high: 160-189 High: 190-219 Very high: > or =220 Specimen Anatomical Collection Method Collection Time Receive d Time (Source) Location / / Volume Laterality Blood (Blood, 03/02/2018 7:37 PM 03/02/20 18 7:44 Venous) CDT PM CDT Cintia Copeland M.D. LAB BLOOD ADD-ON Performing Organization Address City/[facility]/ZIP Code Phon e Number [address] [address] [facility] Hemoglobin A1c (03/02/2018 7:37 PM CDT) P athologist Signature Hemoglobin A1c, 5.6 4.2 - 5.6 03/02/2018 [facility] B % 8:03 PM CDT [facility] Specimen Anatomical Collection Method Collection Time Receive d Time (Source) Location / / Volume Laterality Blood (Blood, 03/02/2018 7:37 PM 03/02/20 18 7:44 Venous) CDT PM CDT Cintia Copeland M.D. LAB BLOOD ADD-ON Performing Organization Address City/[facility]/ZIP Code Phon e Number [address] [address] [facility] documented in this encounter Visit Diagnoses [...] as of this encounter Care Teams Manager Distribution Center Relationship Specialty Start Date End Date Cintia Cobb M.D. PCP - General 02/19/17 02/20/[address] [place] [phone] documented as of this encounter
--- OUTSIDE RECORDS SUMMARY | 2022-08-05 10:15 | XMS_ITS | Encounter Summary ---
:1960 Author Organization [facility] Address [address] [place] [address] Care Team Providers Name Role Phone Cintia Cobb M.D. Primary Care Provider [phone] Reason for Visit Reason Comments Back Pain C/o lower back pain that sta rted 03/18/18. Located lower left back, radiating to the knee. Encounter Details Date Type Department Care Team Description 03/24/2018 Emergency [facility], Lavern Lindsay , Pain Low Back (Primary Department M.D. Dx) [phone] [place] [phone] [place], [place] [phone] (Wo rk) Social History Tobacco Use [...] cannot be sent through Care Everywhere.Back Exercises Yozu-[id number]-Kwbh (Japanese)Acute Pain Adult (Japanese)documented in this encounter Medications at Time of [...] 07/0906/01/2018 tablet mg total) by mouth daily. naproxen (NAPROSYN) 500 Take 1 tablet (500 20 tablet 0 03/0704/03/2018 mg tablet mg total) by mouth 2 (two) times a day with meals for 10 days. documented as of this encounter ED [...] History provided by: Patient and significant other claim benefit specialist used: No REVIEW OF SYSTEMS All other [...] Back Lavern Ba M.D. 03/24/18 0421 Bobby Munoz R.N. - 03/24/2018 3:47 AM CDT C/o lower back pain that started 03/18/18. Located lower left back, radiating to the knee. Pt was unwilling to get on a scale to be weighed and at that point became very rude and confrontational. Bobby uMnoz R.N. 03/24/18 0347 documented in this encounter [...] Bobby Munoz R.N.) 60 mg, intramuscular, Once, On Thu at 0402, For 1 dose, Adult IV push rate: Over 15 seconds. Peds IV push rate: Over 1 minute. 60 mg dose only for IM, not recommended for IV., Drug Monitoring Pr ogram: Pharmacist to adjust medication o rder based on comorbities and indication. documented in this encounter Additional Health Concerns Assessment Noted Time PHQ-9 Depression Total Score: 02/14/2013 9:53 AM CD T documented as of this encounter Care Teams Instrumentation Fitter Relationship Specialty Start Date End Date Cintia Cobb M.D. PCP - General 02/19/17 02/20/[id number] [phone] documented as of this encounter
--- OUTSIDE RECORDS SUMMARY | 2022-08-05 10:15 | XMS_ITS | Encounter Summary ---
:1960 Author Organization [facility] Address [address] [place] [address] Care Team Providers Name Role Phone Cintia Cobb M.D. Primary Care Provider [phone] Reason for Visit Auth/Cert Specialty Diagnoses / Procedures Referred By Contact Refer red To Contact Diagnoses Hemorrhage Gastrointestinal Anemia Procedures NA Referral ID Status Reason Start Date Expiration Date Visits Requ ested Visits Authorized [id number] 1 1 Encounter Details Date Type Department Care Team Description 04/13/2018 Surgery Department of Omar Stone TRODUODENOSCOPY Gastroenterology in [place] M.[address] [id number] [phone] Social History Tobacco Use Types Packs/Day Years [...] C.NEricka Primary Care Providers: Cintia Cobb M.D. ([facility]) [address] [place] [phone] Primary Care Provider Primary Care Provider Admission Date: 04/12/2018 Discharge Date: 04/15/2018 PRINCIPAL DIAGNOSIS Gastrointestinal hemorrhage Acute blood loss anemia Headache SECONDARY DIAGNOSES Atrial fibrillation status post pacemaker placement Type 2 diabetes-resolved Status post gastric bypass Hypertension Operative Procedures: Scheduled (Monica), Completed (Comp) or Canceled (Can) Case IDs Date Procedure Surgeon Location Status [id number] 04/13/18 ESOPHAGOGASTRODUODENOSCOPY Omar Stone M.D. [facility] Comp No past medical history on file. Past Surgical History: Procedure Laterality Date ??? BYPASS OF STOMACH N/A 11/19/2014 Gastric bypass ??? CARDIAC PACEMAKER PLACEMENT ??? CHONDRECTOMY OF SPINE N/A 02/19/1989 Discectomy ??? CYSTOSCOPY kidney stone ??? ESOPHAGOGASTRODUODENOSCOPY N/A 04/13/2018 Procedure: ESOPHAGOGASTRODUODENOSCOPY; Surgeon: Omar Stone M.D.; Location: [facility] ??? LAPAROSCOPIC ASSISTED - GASTRIC [...] COURSE 57-year-old male admitted to hospital through [facility] with report of melena and [...] Everywhere. Acute Upper and Lower Gastrointestinal Bleeding (Austrian)Food Sources of Iron (Austrian)documented in this encounter Medications at Time of [...] this encounter Progress Notes Luis Varghese APRN, C.N.P. - 04/14/2018 4:46 PM CDT SUBJECTIVE [...] 04/14/2018 11:17 AM CDT Spoke w ordering PACKING INSPECTOR OT order in error. No skilled OT [...] CDT SUBJECTIVE The patient is located in [facility], room 3109. I have seen, evaluated, and [...] or assistance. BILLING: No charge. Job ID: [id number] documented in this encounter H&P Notes Luis Varghese APRN, C.N.P. - 04/12/2018 5:25 PM CDT CHIEF COMPLAINT Black or bloody stools HISTORY OF PRESENT ILLNESS 57-year-old male admitted to hospital through [facility] re-presented with 4-6 day history [...] amount of weight since that time. 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 [...] placement Rhianna hypertension admitted to hospital through [facility] where he presented with complaints of melena on syncope. Hemoglobin was found to be 2.9. Acute active Acute gastrointestinal bleeding. Most recent hemoglobin from February of this year was 10.6. Today 2.9. Patient did receive 2 units of packed red blood cells in [facility] emergency department. Also given dose of intravenous [...] 7:37 AM CDTAssociated Order(s): UPPER GI ENDOSCOPY [facility] [place] [facility] Patient Name: Ed Jeremy Procedure Date: [...] healthy appearing mucosa. This was traversed. The kxrje-fh-ifkivyy limb was characterized by healthy appearing mucosa. The phiouyne-ad-pcdavsb limb was not examined as it could [...] disposition, GI bleed Onset Date: 04/12/18 Payor: [facility] [place] CARE / Plan: [facility] [...] Procedure: ESOPHAGOGASTRODUODENOSCOPY; Surgeon: Omar Stone M.D.; Location: [facility] ??? LAPAROSCOPIC ASSISTED - GASTRIC [...] History of Present Illness: Pt went to [facility] ER secondary to falling several days in a row. Determined pt had a GI bleed and was transferred to [place] for Surgery Prior Function / Occupational Profile Level of Tennyson: Independent with ADLs and functional transfers Lives [...] upon discharge. Reportedly not allowed back to [facility] due to his behavior. According to nursing, Ed has been behaving here overnight.) Who was present during the interview?: Patient, Spouse, Other (comment) (Spouse, Maddisona([phone]-Ed scoulded Pipo for giving out this number, call his primary number/confirmed with Ed [phone]) neighbor was also present due to the fact that Pipo does not drive.) Facility Technician Services Used: No Patient Information Primary Caregiver: Self Support System: Immediate family (Pipo([phone]) Pipo wanted this workers card, although, Ed would not allow this worker to give it to her. Notified Pipo to call and ask for a hospital Government Auditor at the main number,) Legal Information (Retired) Legal Decision Maker: Self Caregiver Information Caregiver Name: Pipo Caregiver Relationship: Caregiver (should call [phone] first; this number should only be called [...] Communication: Can write, Talks, Understands speaking, Understands Austrian Environmental Supports Home Environment: (Ed refused Social [...] any support regarding discharge planning. Pipo requested [facility]'s card, Ed would not allow her [...] as he does not trust social workers. [facility] honored Ed's request to leave the [...] the nurses line. He presented to the [facility] with a hemoglobin of 2.9. [...] most of the history. 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 Per Renetta, the primary nurse, this patient was refusing to go to [place], was refusing to get out of bed,and was being loud and abusive towards her and his spouse. This prepress supervisor along with the hospitalist Jelena and [...] wanted to be called he replied Her [place]. Patient was advised that she had call him Sir out of respect and several minutes were spent trying to convince him that sirwas not intended tameka disrespectful and that in no way was the nurse going to refer to him as her Bay. This patient did not appeared to be [...] a follow-up I contacted his Magali Luna ([phone]). Mrs. Luna stated she left because he [...] the room. The patient demanded that the prepress supervisor speak with him about the staff members. He stated that nurse is no longer allowed in my room, and I will yudi this hospital if she comes in. The nurse obtained help from the prepress supervisor and provider in dealing with the patients oppositional and demanding behaviors. The PCS and CARBURETOR MECHANIC had a lengthy discussion with the patient. The patient was assisted down to Radiology, where it took 1 complete hour for him to transfer to the CT scan and back. The patient was rather difficult during that time as well. He was accompanied by the NST. The CARBURETOR MECHANIC and nurse spoke with the patients , [...] to c/o severe headacheand blurry vision, bobby CARBURETOR MECHANIC notified and seen patient at bedside, see [...] of blood was complete upon arrival from [facility]. documented in this encounter Plan of Treatment [...] CBC with Differential (04/21/2018 1:35 PM CDT) [facility] Time Signature Hemoglobin 8.4 (L) 13.2 - 04/21/2018 [facility] ER 16.6 g/dL 1:44 PM CDT [facility] Hematocrit 26.6 (L) 38.3 - 04/21/2018 [facility] ER 48.6 % 1:44 PM CDT [facility] Erythrocytes 2.99 (L) 4.35 - 04/21/2018 [facility] ER 5.65 1:44 PM CDT [facility] x10(12)/[facility] MCV 89.0 78.2 - 04/21/2018 [facility] ER 97.9 fL 1:[address] [facility] [email or web address] LAB RBC Distrib Width 15.4 (H) 11.8 - 04/21/2018 [facility] ER 14.5 % 1:44 PM CDT [facility] Platelet Count 251 135 - 317 04/21/2018 [facility] ER x10(9)/L 1:44 PM CDT [facility] Leukocytes 8.8 3.4 - 9.6 04/21/2018 [facility] ER x10(9)/L 1:44 PM CDT [facility] Neutrophils 5.90 1.56 - 04/21/2018 [facility] ER 6.45 1:44 PM CDT [facility] x10(9)/L [facility] Lymphocytes 1.91 0.95 - 04/21/2018 [facility] ER 3.07 1:44 PM CDT [facility] x10(9)/L [facility] Monocytes 0.78 0.26 - 04/21/2018 [facility] ER 0.81 1:44 PM CDT [facility] x10(9)/L [facility] Eosinophils 0.15 0.03 - 04/21/2018 [facility] ER 0.48 1:44 PM CDT [facility] x10(9)/L [facility] Basophils 0.05 0.01 - 04/21/2018 [facility] ER 0.08 1:44 PM CDT [facility] x10(9)/L [facility] Specimen Anatomical Collection Method Collection Time Receive d Time (Source) Location / / Volume Laterality Blood (Blood, 04/21/2018 1:35 PM 04/21/20 18 1:37 Venous) CDT PM CDT Luis Varghese APRN, C.N.P. LAB BLOOD ADD-ON Performing Organization Address City/State/ZIP Code Phon e Number [facility]- [address] [place] [id number] [place] LAB (ABNORMAL) CBC with Differential, Blood (04/15/2018 6:13 AM CDT) [facility] Method Time Signature Hemoglobin 7.4 (L) 13.2 - 04/15/2018 [facility] ER 16.6 g/dL 6:28 AM CDT [facility] [facility] Hematocrit 22.8 (L) 38.3 - 04/15/2018 [facility] ER 48.6 % 6:28 AM CDT [facility] [place] [facility] Erythrocytes 2.65 (L) 4.35 - 04/15/2018 [facility] ER 5.65 6:28 AM CDT [facility] x10(12)/L [facility] [place] [facility] MCV 86.0 78.2 - 04/15/2018 [facility] ER 97.9 fL 6:28 AM CDT [facility] [place] [facility] RBC Distrib Width 18.4 (H) 11.8 - 04/15/2018 [facility] ER 14.5 % 6:28 AM CDT [facility] [place] [facility] Platelet Count 149 135 - 317 04/15/2018 [facility] ER x10(9)/L 6:[address] [facility] [place] [facility] Leukocytes 7.3 3.4 - 9.6 04/15/2018 [facility] ER x10(9)/L 6:28 AM CDT [facility] [place] [facility] Neutrophils 5.04 1.56 - 04/15/2018 [facility] ER 6.45 6:28 AM CDT [facility] x10(9)/L [facility] [place] [facility] Lymphocytes 1.37 0.95 - 04/15/2018 [facility] ER 3.07 6:28 AM CDT [facility] x10(9)/L [facility] [place] [facility] Monocytes 0.69 0.26 - 04/15/2018 [facility] ER 0.81 6:28 AM CDT [facility] x10(9)/L [facility] [place] [facility] Eosinophils 0.16 0.03 - 04/15/2018 [facility] ER 0.48 6:28 AM CDT [facility] x10(9)/L [facility] [place] [facility] Basophils 0.02 0.01 - 04/15/2018 [facility] ER 0.08 6:28 AM CDT [facility] x10(9)/L [facility] [place] [facility] Specimen Anatomical Collection Method Collection Time Receive d Time (Source) Location / / Volume Laterality Blood (Blood, 04/15/2018 6:13 AM 04/15/20 18 6:23 Venous) CDT AM CDT Luis Varghese APRN, C.N.P. LAB BLOOD ADD-ON Performing Organization Address City/State/ZIP Code Phon e Number [facility] [address] [place] [address] [place] [facility] (ABNORMAL) Hemoglobin (04/14/2018 4:11 PM CDT) P athologist Signature Hemoglobin 7.5 (L) 13.2 - 16.6 04/14/2018 [facility] ER g/dL 4:33 PM CDT [facility] Specimen Anatomical Collection Method Collection Time Receive d Time (Source) Location / / Volume Laterality Blood (Blood, 04/14/2018 4:11 PM 04/14/20 18 4:30 Venous) CDT PM CDT Luis Varghese APRN, C.N.P. LAB BLOOD ADD-ON Performing Organization Address City/State/ZIP Code Phon e Number [facility] [address] [place] [address] [place] [facility] (ABNORMAL) BMP (Basic Metabolic Panel) (04/14/2018 5:55 AM CDT) athologist Signature Potassium, S 3.8 3.6 - 5.2 04/14/2018 [facility] ER mmol/L 6:49 AM [facility] Sodium, S 141 135 - 145 04/14/2018 [facility] ER mmol/L 6:49 AM [facility] Chloride, S 106 98 - 107 04/14/2018 [facility] ER mmol/L 6:49 AM [facility] Bicarbonate, S 27 22 - 29 04/14/2018 [facility] ER mmol/L 6:49 AM [facility] Anion Gap 8 7 - 15 04/14/2018 [facility] ER 6:49 AM [facility] BUN (Blood Urea 34 (H) 8 - 24 04/14/2018 [facility] ER Nitrogen), S mg/dL 6:49 AM [facility] Creatinine 0.98 0.74 - 04/14/2018 [facility] ER 1.35 mg/dL 6:49 AM [facility] eGFR-Non 84 >=60 04/14/2018 [facility] Black/ mL/min/BSA 6:49 AM [facility] [employer] [place] [facility] Comment: ----ADDITIONAL INFORMATION---- Estimated GFR calculated using the 2009 CKD_EPI creatinine equation. eGFR-Black/ >90 >=60 mL/min/BSA 2017 6:49 AM [facility] Comment: ----ADDITIONAL INFORMATION---- Estimated GFR calculated using the 2009 CKD_EPI creatinine equation. Calcium, Total, S 8.1 (L) 8.6 - 10.0 mg/dL 04/14/2018 6 :49 AM [facility] [place] [facility] Glucose, S 149 (H) 70 - 140 mg/dL 04/14/2018 6:49 AM [facility] LAB Specimen Anatomical Collection Method Collection Time Receive d Time (Source) Location / / Volume Laterality Blood (Blood, 04/14/2018 5:55 AM 04/14/20 18 6:10 Venous) CDT AM CDT Kelvin Narvaez APRNNEricka LAB BLOOD ADD-ON Performing Organization Address City/State/ZIP Code Phon e Number [facility] [address] [place] [address] [facility] [facility] (ABNORMAL) CBC with Differential, Blood (04/14/2018 5:55 AM CDT) [facility] Method Time Signature Hemoglobin 7.0 (L) 13.2 - 04/14/2018 [facility] ER 16.6 g/dL 6:13 AM [facility] Hematocrit 21.8 (L) 38.3 - 04/14/2018 [facility] ER 48.6 % 6:13 AM [facility] Erythrocytes 2.48 (L) 4.35 - 04/14/2018 [facility] ER 5.65 6:13 AM T [facility] x10(12)/L [facility] [place] [facility] MCV 87.9 78.2 - 04/14/2018 [facility] ER 97.9 fL 6:13 AM [facility] RBC Distrib Width 19.3 (H) 11.8 - 04/14/2018 [facility] ER 14.5 % 6:13 AM [facility] Platelet Count 134 (L) 135 - 317 04/14/2018 [facility] ER x10(9)/L 6:13 AM [facility] Leukocytes 7.3 3.4 - 9.6 04/14/2018 [facility] ER x10(9)/L 6:13 AM [facility] Neutrophils 5.26 1.56 - 04/14/2018 [facility] ER 6.45 6:13 AM [facility] [employer] x10(9)/L [facility] [place] [facility] Lymphocytes 1.34 0.95 - 04/14/2018 [facility] ER 3.07 6:13 AM [facility] [employer] x10(9)/L [facility] [place] [facility] Monocytes 0.63 0.26 - 04/14/2018 [facility] ER 0.81 6:13 AM CDT [facility] x10(9)/L [facility] [place] [facility] Eosinophils 0.09 0.03 - 04/14/2018 [facility] ER 0.48 6:13 AM CDT [facility] x10(9)/L [facility] [place] [facility] Basophils 0.01 0.01 - 04/14/2018 [facility] ER 0.08 6:13 AM CDT [facility] x10(9)/L [facility] [place] [facility] Specimen Anatomical Collection Method Collection Time Receive d Time (Source) Location / / Volume Laterality Blood (Blood, 04/14/2018 5:55 AM 04/14/20 18 6:10 Venous) CDT AM CDT Kelvin Narvaez APRNNPiliPPili LAB BLOOD ADD-ON Performing Organization Address City/State/ZIP Code Phon e Number [facility] [address] [facility] [address] Head Neck Angiogram with [...] of acute infarct. Luis Varghese APRN C.N.P. [facility] CT PROCEDURES Pathology Services (04/13/2018 7:50 AM CDT) Component Value Ref Test Analysis Performed At [facility] Range Method Time Signature PATHOLOGY Patient Name: [facility] MR#: [id number] [facility] Submitting Physician: OMAR STONE MD [id number] Specimen #[id number] Performing Lab: ??[facility] ? [address] [place] [id number] Source: Stomach biopsy - R/O - Helicobacter [...] Code Phon e Number [facility] [address] [facility] [place] [address] UPPER GI ENDOSCOPY (04/13/2018 7:37 AM CDT) Specimen (Source) Anatomical Location Collection Method / Collectio n Time Received Time / Laterality Volume Narrative This result has an attachment that is no t available. Procedure Note Omar Stone M.D. - 04/13/2018 7:3 7 AM CDT [facility] Patient Name: Ed Luna Procedure Date: [...] y appearing mucosa. This was traversed. The gbgfi-gp-dqrbmdu limb wa s characterized by healthy appearing mucosa. The zmsduvlc-iw-wlxqk um limb was not examined as it [...] Potassium, S 4.1 3.6 - 5.2 04/13/2018 [facility] ER mmol/L 6:19 AM [facility] [place] [facility] Sodium, S 144 135 - 145 04/13/2018 [facility] ER mmol/L 6:19 AM [facility] [place] [facility] Chloride, S 108 (H) 98 - 107 04/13/2018 [facility] mmol/L 6:19 AM [facility] [place] [facility] Bicarbonate, S 25 22 - 29 04/13/2018 [facility] mmol/L 6:19 AM [facility] [place] [facility] Anion Gap 11 7 - 15 04/13/2018 [facility] ER 6:19 AM [facility] [place] [facility] BUN (Blood Urea 63 (H) 8 - 24 04/13/2018 [facility] ER Nitrogen), S mg/dL 6:19 AM [facility] Creatinine 1.14 0.74 - 04/13/2018 [facility] ER 1.35 mg/dL 6:19 AM [facility] eGFR-Non 70 >=60 04/13/2018 [facility] ER Black/ mL/min/BSA 6:19 AM [facility] LAB Comment: ----ADDITIONAL INFORMATION---- Estimated GFR calculated using the 2009 CKD_EPI creatinine equation. eGFR-Black/ 81 >=60 mL/min/BSA 2017 6:19 AM [facility] Comment: ----ADDITIONAL INFORMATION---- Estimated GFR calculated using the 2009 CKD_EPI creatinine equation. Calcium, Total, S 8.3 (L) 8.6 - 10.0 04/13/2018 6:[address] [facility] mg/dL [facility] Glucose, S 176 (H) 70 - 140 mg/dL 04/13/2018 6:19 AM [facility] Protein, Total, S 4.9 (L) 6.3 - 7.9 g/dL 04/13/2018 6:19 A M [facility] Albumin, S 3.3 (L) 3.5 - 5.0 g/dL 04/13/2018 6:19 AM [facility] Aspartate 12 8 - 48 U/L 04/13/2018 6:19 AM [facility] Aminotransferase (AST), S [facility] Alkaline Phosphatase, S 41 (L) 45 - 115 U/L 04/13/2018 6: 19 AM [facility] Alanine Aminotransferase 13 7 - 55 U/L 04/13/2018 6:1 9 AM [facility] ER (ALT), S [facility] Bilirubin, Total, S 0.7 <=1.2 mg/dL 04/13/2018 6:19 AM [facility] Specimen Anatomical Collection Method Collection Time Receive d Time (Source) Location / / Volume Laterality Blood (Blood, 04/13/2018 5:24 AM 04/13/20 18 5:34 Venous) CDT AM CDT Jess Hernandez M.D. LAB BLOOD ADD-ON Performing Organization Address City/State/ZIP Code Phon e Number [facility] [place] [address] [place] [facility] (ABNORMAL) CBC without Differential (04/13/2018 5:23 AM CDT) [facility] Method Time Signature Hemoglobin 7.7 (L) 13.2 - 04/13/2018 [facility] ER 16.6 g/dL 5:37 AM CDT [facility] Hematocrit 23.3 (L) 38.3 - 04/13/2018 [facility] ER 48.6 % 5:37 AM CDT [facility] Erythrocytes 2.69 (L) 4.35 - 04/13/2018 [facility] ER 5.65 5:37 AM CDT [facility] x10(12)/L [facility] LAB MCV 86.6 78.2 - 04/13/2018 [facility] ER 97.9 fL 5:37 AM CDT [facility] RBC Distrib Width 18.6 (H) 11.8 - 04/13/2018 [facility] ER 14.5 % 5:37 AM T [facility] Platelet Count 147 135 - 317 04/13/2018 [facility] ER x10(9)/L 5:37 AM T [facility] Leukocytes 9.4 3.4 - 9.6 04/13/2018 [facility] ER x10(9)/L 5:37 AM T [facility] Specimen Anatomical Collection Method Collection Time Receive d Time (Source) Location / / Volume Laterality Blood (Blood, 04/13/2018 5:23 AM 04/13/20 18 5:34 Venous) CDT AM CDT Jess Hernandez M.D. LAB BLOOD ADD-ON Performing Organization Address City/State/ZIP Code Phon e Number [facility] [place] [address] [place] [facility] Transfuse Red Blood Cells (04/13/2018 [...] Hemoglobin 5.6 (CL) 13.2 - 16.6 04/13/2018 [facility] ER g/dL 12:44 AM CDT [facility] [place] [facility] Specimen Anatomical Collection Method Collection Time Receive d Time (Source) Location / / Volume Laterality Blood (Blood, 04/13/2018 12:33 04/13/2018 Venous) AM CDT 12:38 AM CDT Luis Varghese APRN, C.N.P. LAB BLOOD ADD-ON Performing Organization Address City/State/ZIP Code Phon e Number [facility] [address] [facility] [place] [address] [place] [facility] Transfuse Red Blood Cells (04/12/2018 9:35 PM CDT) Luis Varghese APRN, C.N.P. BLOOD TRANSFUSION ORDER DESEAN Transfuse Red Blood Cells : , 1 Units (04/12/2018 9:35 PM CDT) Luis Varghese APRN, C.N.P. BLOOD TRANSFUSION ORDER DESEAN Type and Screen (with reflex Antibody ID) (04/12/2018 5:52 PM CDT) [facility] Method Time Signature ABO Group A 04/12/2018 [facility] ER 6:15 PM CDT [facility] [place] [facility] Rh Type POS 04/12/2018 [facility] ER 6:15 PM CDT [facility] [place] [facility] Antibody Screen NEG 04/12/2018 [facility] ER 6:28 PM CDT [facility] [place] [facility] Type & Screen 04/15/2018 04/12/2018 [facility] Expiration 23:59 6:28 PM CDT [facility] [place] [facility] ELXM Eligible Y 04/12/2018 [facility] ER 6:28 PM CDT [facility] Specimen Anatomical Collection Method Collection Time Receive d Time (Source) Location / / Volume Laterality Blood (Blood, 04/12/2018 5:52 PM 04/12/20 18 5:56 Venous) CDT PM CDT Omar Stone M.D. LAB BLOOD BANK TEST ORDERABL ES Performing Organization Address City/State/ZIP Code Phon e Number [facility] [place] [address] [place] [facility] (ABNORMAL) Hemoglobin (04/12/2018 4:50 PM CDT) P athologist Signature Hemoglobin 5.3 (CL) 13.2 - 16.6 04/12/2018 [facility] g/dL 5:02 PM CDT [facility] Specimen Anatomical Collection Method Collection Time Receive d Time (Source) Location / / Volume Laterality Blood (Blood, 04/12/2018 4:50 PM 04/12/20 18 4:54 Venous) CDT PM CDT Luis Varghese APRN, C.N.P. LAB BLOOD ADD-ON Performing Organization Address City/State/ZIP Code Phon e Number [facility] [place] [address] [place] [facility] documented in this encounter Visit Diagnoses [...] rivas R.N.)1658 (Given - Provider: Surendra Patino RKevin.) 0616 (Given - Provider: Diamond [...] Provider, Automatic)0902 (Given - Provider: Michell Mujica RAugustine) 40 mg, intravenous, 2 times daily, First [...] 0722 (New Bag - Provider: Surendra lake RAugustine)0900 (Stopped - Provider: Surendra Patino R.N.) 100 mL/hr, intravenous, Continuous, Starting on Thu04/12/18 at 16 30 PRN Medication Order 04/13/2018 04/14/2018 04/15/2018 acetaminophen tablet 1,000 mg (TYLENOL) 0734 (NOV Hold - Provider: Transfer Provider, Automatic - Reason: Patient not available)0815 (NOV Unhold - Provider: Transfer Provider, Automatic)1145 (Not Given - Provider: Michell Mujica R.N. - Reason: Patient/family refused) 1658 (Given - [...] (SUBLIMAZE) (COMPLETED) 0742 (Given - Provider: Gabriela R Boris, R.N.) intravenous, Code/trauma/sedation medication, Starting on 03/24 [...] mL (COMPLETED) 2104 (Gi cora - Provider: Fany GarciaTPili(R)(CT), R.T.(R)) 55 mL, intravenous, Once in imaging, sergei e care, Starting on Thu04/13/18 at 1939, For 1 dose sodium chloride injection 10 mL 2103 (Given - Provider : Fany GarciaTPili(R)(CT), R.T.(R)) 10 mL, intravenous, As needed, line care, Starting on Thu04/13/18 at 1939 traMADol tablet 50 mg (ULTRAM) 0734 (NOV Hold - Provid er: Transfer Provider, Automatic - Reason: Patient not available)0815 (NOV Unhold - Provider: Transfer Provider, Automatic) 0908 (Given - Provider: Surendra rivas R.N.)1658 (Given - Provider: Surendra Patino RKevin.) 50 mg, oral, Every 6 hours PRN, moderate pain or score 4-6 of 10, Starting on Thu04/12/18 at 1636, Drug Monitoring Program: Pharmacist to adjust medication order based on comorbities and indication. No Frequency Medication Order 04/13/2018 04/14/2018 04/15/2018 iohexol (OMNIPAQUE) 350 mg iodine/mL solution - ADS Ov erride Pull (COMPLETED) 2104 (Given - Provider: Myriam Garcia(Abby)(CT), Myriam(R)) Starting on Thu04/13/18 at 1944, For 1 dose, Created by xuan delatorre documented in this encounter Additional Health Concerns Assessment Noted Time PHQ-9 Depression Total Score: 18 02/14/2013 9:53 AM CD T documented as of this encounter Care Teams Radiation Oncology Nurse Relationship Specialty Start Date End Date Cintia Cobb M.D. PCP - General 02/19/17 02/20/[address] [place] [phone] documented as of this encounter
--- OUTSIDE RECORDS SUMMARY | 2022-08-05 10:15 | XMS_ITS | Encounter Summary ---
:1960 Author Organization [facility] Address [address] [place] [address] Care Team Providers Name Role Phone Cintia Cobb M.D. Primary Care Provider [phone] Reason for Visit Reason Onset Date Comments Post Hospital Follow-up 04/16/2018 Encounter Details Date Type Department Care Team Description 04/16/2018 Clinical Communication Department of [facility] Family MedicineLaura R.N. Follow-up [address], in [address] [address] [facility] [phone] [place], [place] (Work) [phone] Social History Tobacco Use [...] Primary Care Providers: Cintia Cobb M.D. (General) [address] [place] [phone] Primary Care Provider Primary Care Provider ?? [...] documented as of this encounter Care Teams Sde Relationship Specialty Start Date End Date Cintia Cobb M.D. PCP - General 02/19/17 02/20/[id number] [phone] documented as of this encounter
--- OUTSIDE RECORDS SUMMARY | 2022-08-05 10:15 | XMS_ITS | Encounter Summary ---
:1960 Author Organization [facility] Address [address] [place] [address] Care Team Providers Name Role Phone Cintia Cobb M.D. Primary Care Provider [phone] Encounter Details Date Type Department Care Team [...] documented as of this encounter Care Teams Jai Alai Player Relationship Specialty Start Date End Date Cintia Cobb M.D. PCP - General 02/19/17 02/20/[address] [phone] documented as of this encounter
--- OUTSIDE RECORDS SUMMARY | 2022-08-05 10:15 | XMS_ITS | Encounter Summary ---
:1960 Author Organization [facility] Address [address] [place] [address] Care Team Providers Name Role Phone Cintia Cobb M.D. Primary Care Provider [phone] Encounter Details Date Type Department Care Team Description 04/16/2018 Clinical Communication [facility], Jose Daniel Piper M.D. [address] [address] [place], [place] [phone] (Work) [phone] Social History Tobacco Use Types Packs/Day Years Used Date Smoking Tobacco: Never Smokeless Tobacco: Never Alcohol Use Standard Drinks/Week Comments No 0 (1 standard drink = 0.6 oz pure alcoho l) Sex Assigned at Date Recorded Not on file documented as of this encounter Miscellaneous Notes Telephone Encounter - Suzie Hurt - 04/16/2018 12:39 PM CDT Renetta from [facility] is calling needing a Quantity Limit Exemption for the Omeprazole 20mg. Please reach out to [facility] at [phone]. Thank you! documented in this encounter Plan of Treatment Not on filedocumented as of this encounter Visit Diagnoses Not on filedocumented in this encounter Additional Health Concerns Assessment Noted Time PHQ-9 Depression Total Score: 18 02/14/2013 9:53 AM CD T documented as of this encounter Care Teams Wig Dresser Relationship Specialty Start Date End Date Cintia Cobb M.D. PCP - General 02/19/17 02/20/[address] [place] [phone] documented as of this encounter
--- OUTSIDE RECORDS SUMMARY | 2022-08-05 10:15 | XMS_ITS | Encounter Summary ---
:1960 Author Organization [facility] Address [address] [place] [address] Care Team Providers Name Role Phone Cintia Cobb M.D. Primary Care Provider Encounter Details Date Type Department Care Team Description 03/23/2018 Clinical Communication Department of [facility], Jose Daniel Hernandez [address] [address] [place], [place] [phone] (Work) [phone] Social History Tobacco Use Types Packs/Day Years [...] documented as of this encounter Care Teams Inter Com Servicer Relationship Specialty Start Date End Date Cintia Cobb M.D. PCP - General 02/19/17 02/20/[address] [place] [phone] documented as of this encounter
--- OUTSIDE RECORDS SUMMARY | 2022-08-05 10:15 | XMS_ITS | Encounter Summary ---
:1960 Author Organization [facility] Address [address] [place] [address] Care Team Providers Name Role Phone Cintia Cobb M.D. Primary Care Provider [phone] Reason for Referral MRI/CAT/PET Scan (Routine) - Closed Specialty Diagnoses / Procedures Referred By Contact Refer red To Contact Radiology Diagnoses Pain Low Back Unspecified Cintia Cbob [facility] Region Procedures CT Lumbar Spine without IV Contrast NE CT LUMBAR SPINE WO CNTRST HC CT LUMBAR SPINE WO CNTRST NE CT LUMBAR SPINE WO SAMARA Piper M.D. [address] [place] [phone] Referral ID Status Reason Start Date Expiration Date Visits Requ ested Visits Authorized [id number] Closed 04/07/2018 04/07/2019 1 1 utpatient (Routine) - Closed Specialty Diagnoses / Procedures Referred By Contact Refer red To Contact Diagnoses Weakness Leg Left Cintia Cobb Referring S, M.D. Provider [address] [place] [phone] Referral ID Status Reason Start Date Expiration Visits Visits Date Requested Authorized [id number] Closed Patient 04/06/2018 04/06/2019 1 1 Preference Reason for Visit Reason Comments bilateral knee pain Appointment Request (Routine) - Closed Specialty Diagnoses / Procedures Referred By Contact Refer red To Contact Family Medicine Referral ID Status Reason Start Date Expiration Date Visits Requ ested Visits Authorized [id number] Closed 03/31/2018 03/31/2019 1 1 Encounter Details Date Type Department Care Team Description 04/06/2018 Office Visit Department of Family Reed Cobb Leg Left (Primary Dx); Medicine, Jose Daniel Piper M.D. [facility], [address] [address] [place], [place] [phone] (W ork) [phone] Social History Tobacco Use Types Packs/Day Years [...] documented as of this encounter Care Teams Fly Finisher Relationship Specialty Start Date End Date Cintia Cobb M.D. PCP - General 02/19/17 02/20/[id number] [phone] documented as of this encounter
--- OUTSIDE RECORDS SUMMARY | 2022-08-05 10:16 | XMS_ITS | Encounter Summary ---
:1960 Author Organization [facility] Address [address] [place] [address] Care Team Providers Name Role Phone Cintia Cobb M.D. 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 Cultures were [...] Component Value Ref Test Analysis Performed At [facility] gist Range Method Time Signature Bacterial STAPHYLOCOCCUS COAGULASE-NEGATIVE 2017 [facility] Culture, 1+ 10:13 AM HEALTH Aerobic (A) CDT SYSTEM- [facility] Specimen (Source) Anatomical Collection Method Collection Time Re ceived Time Location / / Volume Laterality Tissue, Superficial 12/21/2017 6:20 12/21 (Toe, Right) PM CDT 10:25 PM CDT Comment: Specimen Source Site: Tissue, S uperficial Eugene Bunch III, M.D. LAB MICROBIOLOGY - [facility] ORDERABLES Performing Organization Address City/State/ZIP Code Phon e Number [facility]- [address] [place] [address] [facility] LAB DX Toes Right 3 Views (12/21/2017 [...] NT-Pro BNP 490 (H) <=76 pg/mL 12/21/2017 [facility] 6:42 PM CDT [facility] [employer] [facility] Comment: REVISED RESULTS NT-proBNP values less [...] supplements. ??If the result does not ma [facility] clinical observations, repeat testing after patient [...] Biotin has bee n identified by the workforce planning analyst as a potential interfering substance. ??Higher concentr ations of biotin may be found in multivitamins, hair/nail supple ments, and workout supplements. ??If the result does not ma [facility] clinical observations, repeat testing after patient refrains fr om the use of supplements for at least 12 hours. Abnormal_High (Re ported 12/21/2017 18:08) Specimen Anatomical Collection Method Collection Time Receive d Time (Source) Location / / Volume Laterality Blood (Blood, 12/21/2017 5:20 PM 12/22/19 18 5:21 Venous) CDT PM CDT Eugene Bunch III, M.D. LAB BLOOD ADD-ON Performing Organization Address City/State/[facility] Phon e Number [facility]- [address] [place] [address] LAB (ABNORMAL) BMP (Basic Metabolic Panel) (12/21/2017 5:20 PM CDT) P athologist Signature Potassium, P 4.2 3.6 - 5.2 12/21/2017 [facility] mmol/L 5:41 PM [facility] Sodium, P 137 135 - 145 12/21/2017 [facility] mmol/L 5:41 PM [facility] Chloride, P 99 98 - 107 12/21/2017 [facility] mmol/L 5:41 PM [facility] LAB Bicarbonate, P 27 22 - 29 12/21/2017 [facility] mmol/L 5:41 PM [facility] LAB Anion Gap, P 11 7 - 15 12/21/2017 [facility] 5:41 PM [facility] BUN (Blood Urea 30 (H) 8 - 24 12/21/2017 [facility] Nitrogen), P mg/dL 5:41 PM [facility] Creatinine 1.08 0.74 - 12/21/2017 [facility] 1.35 mg/dL 5:41 PM [facility] LAB eGFR-Black/Afri 86 >=60 12/21/2017 [facility] can Turkish mL/min/BSA 5:[address] [facility] [employer] [facility] Comment: ----ADDITIONAL INFORMATION---- Estimated GFR calculated using the 2009 CKD_EPI creatinine equation. eGFR Non-Black/ 75 >=60 mL/min/BSA 12/21/2017 5:41 PM [facility] [employer] [facility] Comment: ----ADDITIONAL INFORMATION---- Estimated GFR calculated using the 2009 CKD_EPI creatinine equation. Calcium, Total, P 8.8 (L) 8.9 - 10.1 mg/dL 12/21/2017 5 :41 PM [facility] Glucose, P 140 70 - 140 mg/dL 12/21/2017 5:41 PM [facility] LAB Specimen Anatomical Collection Method Collection Time Receive d Time (Source) Location / / Volume Laterality Blood (Blood, 12/21/2017 5:20 PM 12/22/19 18 5:21 Venous) CDT PM CDT Eugene Bunch III, M.D. LAB BLOOD ADD-ON Performing Organization Address City/[facility] Phon e Number [facility] [id number] [place] [address] LAB (ABNORMAL) CBC with Differential (12/21/2017 5:19 PM CDT) [facility] Method Time Signature Hemoglobin 9.5 (L) 13.2 - 12/21/2017 [facility] 16.6 g/dL 5:[address] [facility] [employer] [facility] Hematocrit 29.5 (L) 38.3 - 12/21/2017 [facility] 48.6 % 5:[address] [facility] [employer] [facility] Erythrocytes 3.08 (L) 4.35 - 12/21/2017 [facility] 5.65 5:26 PM [facility] HEALTH x10(12)/L [facility] [employer] [facility] MCV 95.8 78.2 - 12/21/2017 [facility] 97.9 fL 5:26 PM [facility] RBC Distrib Width 13.8 11.8 - 12/21/2017 [facility] 14.5 % 5:26 PM [facility] [employer] [facility] Platelet Count 202 135 - 317 12/21/2017 [facility] x10(9)/L 5:26 PM CDT [facility] Leukocytes 7.3 3.4 - 9.6 12/21/2017 [facility] x10(9)/L 5:26 PM CDT [facility] Neutrophils 4.72 1.56 - 12/21/2017 [facility] 6.45 5:26 PM CDT HEALTH x10(9)/L [facility] Lymphocytes 1.62 0.95 - 12/21/2017 [facility] 3.07 5:26 PM CDT HEALTH x10(9)/L [facility] Monocytes 0.68 0.26 - 12/21/2017 [facility] 0.81 5:26 PM CDT HEALTH x10(9)/L [facility] Eosinophils 0.29 0.03 - 12/21/2017 [facility] 0.48 5:26 PM CDT HEALTH x10(9)/L [facility] Basophils 0.03 0.01 - 12/21/2017 [facility] 0.08 5:26 PM CDT [facility] x10(9)/L [facility] Specimen Anatomical Collection Method Collection Time Receive d Time (Source) Location / / Volume Laterality Blood (Blood, 12/21/2017 5:19 PM 12/22/19 18 5:21 Venous) CDT PM CDT Eugene Bunch III, M.D. LAB BLOOD ADD-ON Performing Organization Address City/State/ZIP Code Phon e Number [facility]- [address] [place] [id number] [place] [facility] documented in this encounter Visit Diagnoses [...] 12/21/2017 clindamycin capsule 300 mg (for_CLEOCIN) (COMPLETED) 7539 (Given - Provider: Lesli Sotomayor R.N.) 300 mg, oral, Once, On 12/21/17 at 18 43, For 1 dose, Indications: Bone and/or joint infection documented in this encounter Additional Health Concerns Assessment Noted Time PHQ-9 Depression Total Score: 18 02/14/2013 9:53 AM CD T documented as of this encounter Care Teams Advanced Practice Nurse Psychotherapist Relationship Specialty Start Date End Date Cintia Cobb M.D. PCP - General 02/19/17 02/20/[address] [place] [phone] documented as of this encounter
--- OUTSIDE RECORDS SUMMARY | 2022-08-05 10:16 | XMS_ITS | Encounter Summary ---
:1960 Author Organization [facility] Address [address] [place] [address] Care Team Providers Name Role Phone Cintia Cobb M.D. Primary Care Provider [phone] Reason for Visit Reason Comments Pre-op Exam Appointment Request (Routine) - Closed Specialty Diagnoses / Procedures Referred By Contact Refer red To Contact Family Medicine Referral ID Status Reason Start Date Expiration Date Visits Requ ested Visits Authorized [id number] Closed 07/07/2017 01/03/2018 1 1 Encounter Details Date Type Department Care Team Description 08/04/2017 Office Visit Department of Family Tigist Cobb reoperative Exam (Primary Dx); Medicine, Jose Daniel Piepr M.D. Diabetes Mellitus Type 2 (HCC); [facility], [place] [address] Neuropat hy Peripheral; [facility] Pacemaker Cardiac Status Post [place] [address] [address] [place], [place] [phone] (Work) [phone] Social History Tobacco Use Types Packs/Day Years Used Date Smoking Tobacco: Never Smokeless Tobacco: Never Sex Assigned at Date Recorded Not on file documented as of this encounter Last Filed Vital Signs Vital Sign Reading Time Taken Comments Blood Pressure 137/81 08/04/2017 6:49 PM CHARGING MANIPULATOR Pulse 75 08/04/2017 6:49 PM CHARGING MANIPULATOR Temperature 36.6 ??C (97.9 ??F) 08/04/2017 6:49 PM CHARGING MANIPULATOR Respiratory Rate - - Oxygen Saturation 100% 08/04/2017 6:49 PM CHARGING MANIPULATOR Inhaled Oxygen Concentration - - Weight 76.8 kg (169 lb 5.4 oz) 08/04/2017 6:49 PM CHARGING MANIPULATOR Height - - Body Mass Index 22.94 06/02/2017 6:04 PM CDT documented in this encounter Progress Notes Xochitl Hackett L.P.N. - 08/04/2017 6:45 PM CST Client here for preop exams. 08/12 - [facility], unsure of name of surgeon 08/28 - paniculectomy with Dr. Motley (?) in [place], unsure what site. Not feeling these days - since pacemaker placed. Legs heavy, difficulty to climb stairs, area aroundpacer painful, fatigued a lot of the time. Difficulty doing his job as he's often sleepy. 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 [...] PLT 162 08/04/2017 ECG 12 Lead Order: [id number] Status: Final result Visible to patient: No (Inaccessible in Patient Online Services) Dx: Preoperative Exam Ref Range & Units 3d ago Ventricular Rate ECG/Min BPM 66 ND Interval ms 192 QRSD Interval ms 182 QT Interval ms 468 QTC Interval ms 490 P [place] degrees 45 R [place] degrees -91 T Wave [place] degrees 71 Clinical Diagnosis Dual chamber electronic [...] to follow up withCardiology to this point. GING MANIPULATOR documented in this encounter Plan of Treatment Not on filedocumented as of this encounter Procedures Procedure Name Priority Date/Time Associated Diagnosis Comme nts ECG Routine 08/04/2017 8:03 PM Preoperative Exam Resu lts for this CHARGING MANIPULATOR procedure are i n the results section. CBC WITHOUT Routine 08/04/2017 7:58 PM Preoperative Exam Resu lts for this DIFFERENTIAL, B CHARGING MANIPULATOR procedure ar e in the results section. HEMOGLOBIN A1C, B Routine 08/04/2017 7:58 PM Diabetes Mellitus Results for this CHARGING MANIPULATOR Type 2 (HCC) procedure are i n the results section. BASIC METABOLIC Routine 08/04/2017 7:58 PM Preoperative Exam R esults for this PANEL, S/P CHARGING MANIPULATOR procedure are i n the results section. documented in this encounter Results ECG 12 Lead (08/04/2017 8:03 PM CHARGING MANIPULATOR) [facility] Method Time Signature Ventricular 66 BPM MUSE Rate ECG/Min ND Interval 192 ms MUSE QRSD Interval 182 ms MUSE QT Interval 468 ms MUSE QTC Interval 490 ms MUSE P [place] 45 degrees MUSE R [place] -91 degrees MUSE T Wave [place] 71 degrees MUSE Clinical Dual chamber electronic pacemaker MUSE Diagnosis Sinus rhythm When compared with ECG of 20-JAN-2017 05:46, No significant change was found Specimen Anatomical Collection Method Collection Time Receive d Time (Source) Location / / Volume Laterality 08/04/2017 8:03 PM 7 8:27 CHARGING MANIPULATOR PM CHARGING MANIPULATOR Narrative This result has an attachment that is no t available. Cintia Copeland M.D. ECG ORDERABLES Performing Organization Address City/State/ZIP Code Phon e Number MUSE MUSE NA Hemoglobin A1c (08/04/2017 7:58 PM CHARGING MANIPULATOR) P athologist Signature Hemoglobin A1c, 5.0 4.2 - 5.6 08/04/2017 [facility] B % 9:56 PM [facility] [employer] [facility] Specimen Anatomical Collection Method Collection Time Receive d Time (Source) Location / / Volume Laterality Blood (Blood, 08/04/2017 7:58 PM 08/04/20 17 8:02 Venous) CHARGING MANIPULATOR PM CHARGING MANIPULATOR Cintia Copeland M.D. LAB BLOOD ADD-ON Performing Organization Address City/[facility] Phon e Number [facility] [id number] [place] [address] [place] (ABNORMAL) CBC without Differential (08/04/2017 7:58 PM CHARGING MANIPULATOR) Patholo gist Method Time Signature Hemoglobin 11.3 (L) 13.2 - 08/04/2017 [facility] 16.6 g/dL 8:09 PM [facility] Hematocrit 34.4 (L) 38.3 - 08/04/2017 [facility] 48.6 % 8:09 PM [facility] Erythrocytes 3.56 (L) 4.35 - 08/04/2017 [facility] 5.65 8:[address] [facility] x10(12)/L [facility] [employer] [facility] MCV 96.6 78.2 - 08/04/2017 [facility] 97.9 fL 8:09 PM [facility] RBC Distrib Width 13.5 11.8 - 08/04/2017 [facility] 14.5 % 8:09 PM [facility] Platelet Count 162 135 - 317 08/04/2017 [facility] x10(9)/L 8:09 PM [facility] Leukocytes 7.7 3.4 - 9.6 08/04/2017 [facility] x10(9)/L 8:09 PM [facility] Specimen Anatomical Collection Method Collection Time Receive d Time (Source) Location / / Volume Laterality Blood (Blood, 08/04/2017 7:58 PM 08/04/20 17 8:02 Venous) CHARGING MANIPULATOR PM CHARGING MANIPULATOR Cintia Copeland M.D. LAB BLOOD ADD-ON Performing Organization Address City/State/ZIP Code Phon e Number [facility]- [id number] [address] [place] [employer] [facility] (ABNORMAL) BMP (Basic Metabolic Panel) (08/04/2017 7:58 PM [facility]) P athologist Signature Potassium, S 4.1 3.6 - 5.2 08/04/2017 [facility] mmol/L 9:56 PM [facility] Sodium, S 138 135 - 145 08/04/2017 [facility] mmol/L 9:56 PM [facility] Chloride, S 96 (L) 98 - 107 08/04/2017 [facility] mmol/L 9:56 PM [facility] Bicarbonate, S 31 (H) 22 - 29 08/04/2017 [facility] mmol/L 9:56 PM [facility] Anion Gap 11 7 - 15 08/04/2017 [facility] 9:56 PM [facility] BUN (Blood Urea 28 (H) 8 - 24 08/04/2017 [facility] Nitrogen), S mg/dL 9:56 PM [facility] Creatinine 1.13 0.74 - 08/04/2017 [facility] 1.35 mg/dL 9:56 PM [facility] eGFR 71 >=60 08/04/2017 [facility] Non-Black/Afric mL/min/BSA 9:56 PM [facility] EM- an Filipino [place] [employer] [facility] Comment: ----ADDITIONAL INFORMATION---- Estimated GFR calculated using the 2009 CKD_EPI creatinine equation. eGFR-Black/ 82 >=60 mL/min/BSA 2016 9:56 PM [facility] Comment: ----ADDITIONAL INFORMATION---- Estimated GFR calculated using the 2009 CKD_EPI creatinine equation. Calcium, Total, S 9.5 8.9 - 10.1 mg/dL 08/04/2017 9:56 PM [facility] Glucose, S 146 (H) 70 - 140 mg/dL 08/04/2017 9:56 PM [facility] Specimen Anatomical Collection Method Collection Time Receive d Time (Source) Location / / Volume Laterality Blood (Blood, 08/04/2017 7:58 PM 08/04/20 17 8:02 Venous) CHARGING MANIPULATOR PM CHARGING MANIPULATOR Cintia Copeland M.D. LAB BLOOD ADD-ON Performing Organization Address City/State/ZIP Code Phon e Number [facility]- [address] [place] [address] [place] [facility] documented in this encounter Visit Diagnoses Diagnosis Preoperative Exam - Primary Diabetes Mellitus Type 2 (HCC) Neuropathy Peripheral Pacemaker Cardiac Status Post documented in this encounter Additional Health Concerns Assessment Noted Time PHQ-9 Depression Total Score: 18 02/14/2013 9:53 AM CD T documented as of this encounter Care Teams Fleet Sales Manager Relationship Specialty Start Date End Date Cintia Cobb M.D. PCP - General 02/19/17 02/20/[address] [place] [phone] documented as of this encounter
--- OUTSIDE RECORDS SUMMARY | 2022-08-05 10:16 | XMS_ITS | Encounter Summary ---
:1960 Author Organization [facility] Address [address] [place] [address] Care Team Providers Name Role Phone Cintia Cobb M.D. Primary Care Provider [phone] Reason for Visit Reason Comments Right great toe osteomyelitis Encounter Details Date Type Department Care Team Description 01/05/2018 Office Visit Department of [facility] Terri Cobb Mellitus Type 2 Ulcer Foot (HCC) (Primary Dx); Medicine, Jose Daniel Piper M.D. Diabetes Mellitus Type 2 Peripheral Neur opathy (HCC); [facility], [place] [address] Gastric Bypass Status Post [address] [address] [place], [place] [phone] (W ork) [address] [phone] Social History Tobacco Use Types Packs/Day Years [...] documented as of this encounter Care Teams Science Intern Relationship Specialty Start Date End Date Cintia Cobb M.D. PCP - General 02/19/17 02/20/[phone] [place] [phone] documented as of this encounter
--- OUTSIDE RECORDS SUMMARY | 2022-08-05 10:16 | XMS_ITS | Encounter Summary ---
:1960 Author Organization [facility] Address [address] [place] [address] Care Team Providers Name Role Phone Cintia Cobb M.D. Primary Care Provider Reason for Referral Outpatient (Routine) - Closed Specialty Diagnoses / Procedures Referred By Contact Refer red To Contact Diagnoses Neuropathy Peripheral [facility]intia Cobb [facility] Karla Piper M.D. [address] [place] [phone] Referral ID Status Reason Start Date Expiration Date Visits Requ ested Visits Authorized [id number] Closed 09/01/2017 02/28/2018 1 1 H DEVELOPMENT PROFESSIONAL Encounter Details Date Type Department Care Team Description 09/01/2017 Orders Only Department of [facility] Fei Cobb Peripheral Medicine, Jose Daniel Piper M.D. (Primary Dx) [facility], in [address] [place] [address] [place], [place] [phone] (W ork) [address] [phone] Social History Tobacco Use Types Packs/Day Years Used Date Smoking Tobacco: Never Smokeless Tobacco: Never Sex Assigned at Date Recorded Not on file documented as of this encounter Plan of Treatment Not on filedocumented as of this encounter Results EMG (10/13/2017 1:53 PM YOUTH DEVELOPMENT PROFESSIONAL) Specimen (Source) Anatomical Collection Method Collection Time Re ceived Time Location / / Volume Laterality 10/13/2017 1:53 PM YOUTH DEVELOPMENT PROFESSIONAL Narrative EMG - 10/15/2017 10:20 AM YOUTH DEVELOPMENT PROFESSIONAL 13-Oct-2017 ? Electromyography ? Final Report Study Number: 1 EMG Appliance Tester: Eli Lopez Referred by: Cintia Cobb () [...] Eli Lopez DO at 10/14/2017 5:04:07 PM YOUTH DEVELOPMENT PROFESSIONAL Cintia Copeland M.D. NEUROLOGY ORDERABLES Performing Organization Address City/State/[facility] Code Phon e Number [facility] documented in this encounter Visit Diagnoses Diagnosis Neuropathy Peripheral - Primary documented in this encounter Additional Health Concerns Assessment Noted Time PHQ-9 Depression Total Score: 18 02/14/2013 9:53 AM CD T documented as of this encounter Care Teams Fitting Room Checker Relationship Specialty Start Date End Date Cintia Cobb M.D. PCP - General 02/19/17 02/20/[address] [place] [address] [place] [phone] documented as of this encounter
--- OUTSIDE RECORDS SUMMARY | 2022-08-05 10:16 | XMS_ITS | Encounter Summary ---
:1960 Author Organization [facility] Address [address] [place] [address] Care Team Providers Name Role Phone Cintia Cobb M.D. Primary Care Provider Reason for Visit Reason Comments Neuro Consult Neuropathy Outpatient (Routine) - Closed Specialty Diagnoses / Procedures Referred By Contact Refer red To Contact Neurology Diagnoses Neuropathy Peripheral Cintia Cobb [facility] DREW Piper M.D. [address] [address] Referral ID Status Reason Start Date Expiration Date Visits V isits Requested Authorized [id number] Closed Specialty 12/24/2017 2018 1 1 Services Required Encounter Details Date Type Department Care Team Description 01/23/2018 Comprehensive Visit Department of Cintia Aguirre M.D. [address] [phone] Neuropathy Neurology in [place] Garnica M.D. [address] [place] [address] Peripheral ([place], [place] Dx) [address] [phone] Social History Tobacco Use Types [...] athologist Signature Ceruloplasmin, 25.0 19.0 - 01/25/2018 [facility] S 31.0 mg/dL 11:30 AM CDT LABORATORIES - [facility] Specimen Anatomical Collection Method Collection Time Receive d Time (Source) Location / / Volume Laterality Blood (Blood, 01/23/2018 10:01/25/2018 8:03 Venous) AM CDT AM CDT German Kwong M.D. LAB BLOOD ADD-ON Performing Organization Address City/[facility]/ZIP Code Phon e Number [facility] [address] [place] [phone] [facility] Copper (01/23/2018 10:19 AM CDT) athologist Signature Copper, S 1.09 0.75 - 1.45 01/25/2018 [facility] mcg/mL 1:22 PM CDT [facility] Comment: ----ADDITIONAL INFORMATION---- This test was developed and its performa nce characteristics determined by [facility] in a manner consistent with CLIA requirements. This test has not been cleared or approved by the [place] d and Drug Administration. Specimen Anatomical Collection Method Collection Time Receive d Time (Source) Location / / Volume Laterality Blood (Blood, 01/23/2018 10:01/25/2018 7:04 Venous) AM CDT AM CDT German Kwong M.D. LAB BLOOD NON ADD-ON Performing Organization Address City/State/ZIP Code Phon e Number [facility] [address] [place] [address] [facility] documented in this encounter Visit Diagnoses Diagnosis Neuropathy Peripheral - Primary documented in this encounter Additional Health Concerns Assessment Noted Time PHQ-9 Depression Total Score: 18 02/14/2013 9:53 AM CD T documented as of this encounter Care Teams Bench Assembler Operator Relationship Specialty Start Date End Date Cintia Cobb M.D. PCP - General 02/19/17 02/20/[address] [phone] documented as of this encounter
--- OUTSIDE RECORDS SUMMARY | 2022-08-05 10:16 | XMS_ITS | Encounter Summary ---
:1960 Author Organization [facility] Address [address] [place] [address] Care Team Providers Name Role Phone Cintia Cobb M.D. Primary Care Provider [phone] Encounter Details Date Type Department Care Team Description 09/01/2017 Hospital Encounter Department of [place] [facility] Initial Radiology in Cintia Jean Baptiste [place], [place] Keely Piper [address] [place] [phone] Social History Tobacco Use Types Packs/Day [...] Results for this VIEWS (most inpatients PM CLAM DIGGER Initial Right procedure are in and all the results outpatients) section. documented in this encounter Results DX Knee Right 4+ Views (09/01/2017 5:43 PM CLAM DIGGER) Anatomical Region Laterality Modality Lower Extremity, Knee Right Digital Radiograph y Specimen (Source) Anatomical Collection Method Collection Time Re ceived Time Location / / Volume Laterality 09/02/2017 8:32 AM CLAM DIGGER Impressions 09/02/2017 8:35 AM CLAM DIGGER IMPRESSION: Diffuse bone demineralization. No acute fracture or traumatic malalignment. Mild diffuse degenerative change. Patellar spurs. Small knee effusion versus synovitis. Mild patellar soft tissue edema. Benign soft tissue calcifications. Vascular calcifications. Narrative 09/02/2017 8:35 AM CLAM DIGGER EXAM: DX KNEE RIGHT 4+ VIEWS Procedure [...] documented as of this encounter Care Teams Paste Up Artist Relationship Specialty Start Date End Date Cintia Cobb M.D. PCP - General 02/19/17 02/20/[address] [place] [phone] documented as of this encounter
--- OUTSIDE RECORDS SUMMARY | 2022-08-05 10:16 | XMS_ITS | Encounter Summary ---
:1960 Author Organization [facility] Address [address] [place] [address] Care Team Providers Name Role Phone Cintia Cobb M.D. Primary Care Provider [phone] Reason for Visit Reason Comments Communication Encounter Details Date Type Department Care Team Description 08/07/2017 Clinical Communication Department of [facility] Communication Medicine, [facility], in [place] Piper. [address] [phone] Social History Tobacco Use Types Packs/Day Years Used Date Smoking Tobacco: Never Smokeless Tobacco: Never Sex Assigned at Date Recorded Not on file documented as of this encounter Miscellaneous Notes Telephone Encounter - Cintia Cobb M.D. - 08/07/2017 6:48 AM CONCENTRATOR OPERATOR Please fax a copy of Ed's preop note and EKG to [facility]. Patient did not know the exact location to fax it to, but the phone number he calls is [phone] or [phone], so hopefully someone at one of those numbers can tell us where to direct it. Cintia Segura ENTRATOR OPERATOR documented in this encounter Plan of Treatment Not on filedocumented as of this encounter Visit Diagnoses Not on filedocumented in this encounter Additional Health Concerns Assessment Noted Time PHQ-9 Depression Total Score: 18 02/14/2013 9:53 AM CD T documented as of this encounter Care Teams Supervisor Engine Assembly Relationship Specialty Start Date End Date Cintia Cobb M.D. PCP - General 02/19/17 02/20/[address] [place] [phone] documented as of this encounter
--- OUTSIDE RECORDS SUMMARY | 2022-08-05 10:16 | XMS_ITS | Encounter Summary ---
:1960 Author Organization [facility] Address [address] [place] [address] Care Team Providers Name Role Phone Cintia Cobb M.D. Primary Care Provider [phone] Encounter Details Date Type Department Care Team [...] documented as of this encounter Care Teams Holistic Pulser Relationship Specialty Start Date End Date Cintia Cobb M.D. PCP - General 02/19/17 02/20/[address] [phone] documented as of this encounter
--- OUTSIDE RECORDS SUMMARY | 2022-08-05 10:16 | XMS_ITS | Encounter Summary ---
:[address] [facility] Address [address] [place] [address] Care Team Providers Name Role Phone Cintia Cobb M.D. Primary Care Provider [phone] Reason for Referral Outpatient (Routine) - Closed Specialty Diagnoses / Procedures Referred By Contact Refer red To Contact Neurology Diagnoses Neuropathy Peripheral [facility]intia Cobb [facility] Piper M.D. [address] [place] [phone] Referral ID Status Reason Start Date Expiration Date Visits V isits Requested Authorized [id number] Closed Specialty 12/24/2017 2018 1 1 Services Required Encounter Details Date Type Department Care Team Description 12/24/2017 Orders Only Department of [facility] Fei Cobb Peripheral Medicine, Jose Daniel Piper M.D. (Primary Dx) [facility], [address] [address] [place], [place] [phone] (W ork) [address] [phone] Social History Tobacco Use Types Packs/Day Years Used Date Smoking Tobacco: Never Smokeless Tobacco: Never Alcohol Use Standard Drinks/Week Comments No 0 (1 standard drink = 0.6 oz pure alcoho l) Sex Assigned at Date Recorded Not on file documented as of this encounter Plan of Treatment Scheduled Referrals Name Type Priority Associated Diagnoses Order S [facility] Neurology - General Outpatient Referral Routine Neuropathy E xpected: consult (clinic) Peripheral 12/24/2017 (Approximate), Expires: 12/24/2020 documented as of this encounter Visit Diagnoses Diagnosis Neuropathy Peripheral - Primary documented in this encounter Additional Health Concerns Assessment Noted Time PHQ-9 Depression Total Score: 18 02/14/2013 9:53 AM CD T documented as of this encounter Care Teams Disintegrator Relationship Specialty Start Date End Date Cintia Cobb M.D. PCP - General 02/19/17 02/20/[address] [place] [phone] documented as of this encounter
--- OUTSIDE RECORDS SUMMARY | 2022-08-05 10:16 | XMS_ITS | Encounter Summary ---
:1960 Author Organization [facility] Address [address] [place] [address] Care Team Providers Name Role Phone Cintia Cobb M.D. Primary Care Provider [phone] Encounter Details Date Type Department Care Team Description 01/08/2018 Orders Only Department of Infusion Sruthi Campos Wou nd Toe Without Therapy in [place] Damage To Nail [place] [address] Subsequent (Primary [address] [place] [address] Blvd Dx) [place] [phone] Social History Tobacco Use Types Packs/Day Years [...] documented as of this encounter Care Teams Wood Sawyer Relationship Specialty Start Date End Date Cintia Cobb M.D. PCP - General 02/19/17 02/20/[address] [place], [place] [address] [phone] documented as of this encounter
--- OUTSIDE RECORDS SUMMARY | 2022-08-05 10:16 | XMS_ITS | Encounter Summary ---
:1960 Author Organization [facility] Address [address] [place] [address] Care Team Providers Name Role Phone Cintia Cobb M.D. Primary Care Provider [phone] Encounter Details Date Type Department Care Team Description 07/07/2017 Orders Only Department of [facility] Tigist Cobb reoperative Exam; Medicine, [place] Cintia Piper M.D. [facility], in [address] [place] [address] [place], [place] [phone] (W ork) [address] [phone] Social History Tobacco Use Types Packs/Day Years [...] as of this encounter Care Teams Manufacturing Support Engineer Relationship Specialty Start Date End Date Cintia Cobb M.D. PCP - General 02/19/17 02/20/[address] [place] [phone] documented as of this encounter
--- OUTSIDE RECORDS SUMMARY | 2022-08-05 10:16 | XMS_ITS | Encounter Summary ---
:1960 Author Organization [facility] Address [address] [place] [address] Care Team Providers Name Role Phone Cintia Cobb M.D. Primary Care Provider [phone] Reason for Visit Reason Comments Right knee pain Encounter Details Date Type Department Care Team Description 09/01/2017 Office Visit Department of [facility] Knee Initial Right (Primary Dx); Medicine, Jose Daniel Piper M.D. Neuropathy [facility], [address] [address] [place], [place] [phone] (W ork) [address] [phone] Social History Tobacco Use Types Packs/Day Years Used Date Smoking Tobacco: Never Smokeless Tobacco: Never Sex Assigned at Date Recorded Not on file documented as of this encounter Last Filed Vital Signs Vital Sign Reading Time Taken Comments Blood Pressure 146/83 09/01/2017 4:25 PM BUYING AGENT Pulse 62 09/01/2017 4:25 PM BUYING AGENT Temperature 36.6 ??C (97.9 ??F) 09/01/2017 4:25 PM BUYING AGENT Respiratory Rate - - Oxygen Saturation 100% 09/01/2017 4:25 PM BUYING AGENT Inhaled Oxygen Concentration - - Weight - - Height - - Body Mass Index - - documented in this encounter Patient Instructions Patient InstructionsCintia Cobb M.D. - 09/01/2017 4:45 PM BUYING AGENT Future Appointments Date Time Provider Department Center 10/13/2017 2:00 PM Eli Lopez D.O. [facility] SEMFei CFERWZ NG AGENT documented in this encounter Progress Notes Xochitl Hackett L.P.N. - 09/01/2017 4:45 PM CST Client also had a fall off his trailer due to his pacemaker. States he had no dizziness or warning prior. Did hurt right knee, split lip and scuffed right hand. NG AGENT Cintia Cobb M.D. - 09/01/2017 4:45 PM [...] EMG which patient was willing to pursue. NG AGENT documented in this encounter Plan of Treatment Not on filedocumented as of this encounter Visit Diagnoses Diagnosis Injury Knee Initial Right - Primary Neuropathy Peripheral documented in this encounter Additional Health Concerns Assessment Noted Time PHQ-9 Depression Total Score: 18 02/14/2013 9:53 AM CD T documented as of this encounter Care Teams Lokie Engineer Relationship Specialty Start Date End Date Cintia Cobb M.D. PCP - General 02/19/17 02/20/[address] [address] documented as of this encounter
--- OUTSIDE RECORDS SUMMARY | 2022-08-05 10:16 | XMS_ITS | Encounter Summary ---
:1960 Author Organization [facility] Address [address] [place] [address] Care Team Providers Name Role Phone Cintia Cobb M.D. Primary Care Provider [phone] Encounter Details Date Type Department Care Team Description 02/25/2018 Infusion Department of Infusion Duncan Copeland Wound Toe Without Damage To Nail Open Subsequent (Primary Dx); Therapy in Jose Daniel Piper M.D. Diabetes Mellitus Type 2 Peripheral Neur opathy (HCC); [address] Diabetes Mellitus Type 2 (HCC) [address] [place] [address] [phone] Social History Tobacco Use Types Packs/Day Years [...] documented as of this encounter Care Teams Utility System Operator Relationship Specialty Start Date End Date Cintia Cobb M.D. PCP - General 02/19/17 02/20/[address] [phone] documented as of this encounter
--- OUTSIDE RECORDS SUMMARY | 2022-08-05 10:16 | XMS_ITS | Encounter Summary ---
:1960 Author Organization [facility] Address [address] [place] [address] Care Team Providers Name Role Phone Cintia Cobb M.D. Primary Care Provider [phone] Reason for Visit Reason Comments Fall the other day due to pacemaker Wants pacemaker re moved - hurt knee. 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 Pacemaker Cardiac Status Post; [facility], [place] [address] Pain Kne e Right; [facility] Gastric Bypass Status Post [address] [address] [place], [place] [phone] (W ork) [address] [phone] Social History Tobacco Use Types Packs/Day Years [...] eating. I did review this with the cane flume feeding machine operator who thought dumping syndrome might be a [...] documented as of this encounter Care Teams Keyseating Machine Set Up Operator Relationship Specialty Start Date End Date Cintia Cobb M.D. PCP - General 02/19/17 02/20/[address] [place] [phone] documented as of this encounter
--- OUTSIDE RECORDS SUMMARY | 2022-08-05 10:16 | XMS_ITS | Encounter Summary ---
:1960 Author Organization [facility] Address [address] [place] [address] Care Team Providers Name Role Phone Cintia Cobb M.D. Primary Care Provider [phone] Reason for Visit Reason Comments Elbow Pain left Encounter Details Date Type Department Care Team Description 02/14/2018 Emergency [place] [facility] RadhausTali, Inj ury Elbow Initial Department P.A.-C. Left (Primary Dx) [address] [phone] Social History Tobacco Use Types Packs/Day Years [...] mg mg total) by mouth tablet daily. furosemide (LASIX) 40 mg Take 1 tablet (40 90 tablet 3 07/0906/01/2018 tablet mg total) by mouth daily. gabapentin Take 2 tablets 540 tablet 3 08/04/2017 03/11/2018 (for_NEURONTIN) 600 mg (1,200 mg total) by tablet mouth 3 (three) times a day. cyanocobalamin, vitamin Inject 1,000 mcg 3 kit 3 201606/01/2018 B-12, 1,000 mcg/mL kit under the skin every 30 (thirty) days. documented as of this encounter ED Notes Tali Mehta P.A.-C., P.A. - 02/14/2018 7:18 PM CDT SUBJECTIVE CHIEF COMPLAINT/REASON FOR VISIT Elbow Pain (left) HISTORY OF PRESENT ILLNESS History provided by: Patient Elbow Pain Location: Elbow Elbow location: L elbow Injury: yes Time since incident: 2 weeks Mechanism of injury: fall Fall: Fall occurred: Standing Impact surface: [place] Point of impact: Onto L forearm with [...] pt as his surgeon is in the [facility] area. Further evaluation and mgmt per surgeon [...] documented as of this encounter Care Teams Advertising Layout Worker Relationship Specialty Start Date End Date Cintia Cobb M.D. PCP - General 02/19/17 02/20/[id number] [place] [phone] documented as of this encounter
--- OUTSIDE RECORDS SUMMARY | 2022-08-05 10:16 | XMS_ITS | Encounter Summary ---
:1960 Author Organization [facility] Address [address] [place] [address] Care Team Providers Name Role Phone Cintia Cobb M.D. Primary Care Provider [phone] Reason for Referral Outpatient (Routine) - Closed Specialty Diagnoses / Procedures Referred By Contact Refer red To Contact Family Medicine Cintia Cobb DREW Piper M.D. [address] [place] [phone] Referral ID Status Reason Start Date Expiration Date Visits Requ ested Visits Authorized [id number] Closed 12/22/2017 06/20/2018 1 1 Encounter Details Date Type Department Care Team Description 12/22/2017 Orders Only Department of [facility] Terri Cobb iabetes Mellitus Type Medicine, Jose Daniel Piper M.D. 2 (HCC) (Primary Dx) [facility], [address] [address] [place], [place] [phone] (W ork) [address] [phone] Social History Tobacco Use Types Packs/Day Years Used Date Smoking Tobacco: Never Smokeless Tobacco: Never Alcohol Use Standard Drinks/Week Comments No 0 (1 standard drink = 0.6 oz pure alcoho l) Sex Assigned at Date Recorded Not on file documented as of this encounter Plan of Treatment Scheduled Referrals Name Type Priority Associated Diagnoses Order S [facility] Outpatient Referral Routine Expec ti: office visit 01/05/2018, (clinic) Expires: 12/22/2020 documented as of this encounter Results Lipid Panel (03/02/2018 7:37 PM CDT) athologist Signature Cholesterol, 139 mg/dL 03/02/2018 [facility] Total 8:26 PM CDT [facility] Comment: ----REFERENCE VALUE---- Desirable: < 200 Borderline high: 200 - 239 High: > or = 240 Triglycerides 40 mg/dL 03/02/2018 8:26 PM CDT [facility] Comment: ----REFERENCE VALUE---- Normal: <150 Borderline high: 150-199 High: 200-499 Very high: > or =500 Cholesterol, HDL, S 56 >=40 mg/dL 03/02/2018 8:26 PM CDT [facility] Calculated LDL 75 mg/dL 03/02/2018 8:[address] [facility] Comment: ----REFERENCE VALUE---- Desirable: <100 Above Desirable: 100-129 Borderline high: 130-159 High: 160-189 Very high: > or =190 Cholesterol, Non-HDL, 83 mg/dL 03/02/2018 8:26 PM CDT [facility] Comment: ----REFERENCE VALUE---- Desirable: <130 Above Desirable: 130-159 Borderline high: 160-189 High: 190-219 Very high: > or =220 Specimen Anatomical Collection Method Collection Time Receive d Time (Source) Location / / Volume Laterality Blood (Blood, 03/02/2018 7:37 PM 03/02/20 18 7:44 Venous) CDT PM CDT Cintia Copeland M.D. LAB BLOOD ADD-ON Performing Organization Address City/State/ZIP Code Phon e Number [facility]- [address] [place] [address], [place] [address] [facility] Hemoglobin A1c (03/02/2018 7:37 PM CDT) P athologist Signature Hemoglobin A1c, 5.6 4.2 - 5.6 03/02/2018 [facility] B % 8:[address] [facility] Specimen Anatomical Collection Method Collection Time Receive d Time (Source) Location / / Volume Laterality Blood (Blood, 03/02/2018 7:37 PM 03/02/20 18 7:44 Venous) CDT PM CDT Cintia Copeland M.D. LAB BLOOD ADD-ON Performing Organization Address City/State/ZIP Code Phon e Number [facility]- [address] [place] [address] [facility] documented in this encounter Visit Diagnoses Diagnosis Diabetes Mellitus Type 2 (HCC) - Primary documented in this encounter Additional Health Concerns Assessment Noted Time PHQ-9 Depression Total Score: 18 02/14/2013 9:53 AM CD T documented as of this encounter Care Teams Floor Supervisor Relationship Specialty Start Date End Date Cintia Cobb M.D. PCP - General 02/19/17 02/20/[address] [place] [phone] documented as of this encounter
--- OUTSIDE RECORDS SUMMARY | 2022-08-05 10:16 | XMS_ITS | Encounter Summary ---
:1960 Author Organization [facility] Address [address] [place] [address] Care Team Providers Name Role Phone Cintia Cobb M.D. Primary Care Provider [phone] Encounter Details Date Type Department Care Team Description 12/08/2017 Orders Only Department of [facility] Feliz [facility] Leg Right MedicineJose Daniel M.D. (Primary Dx) [facility], [address] [address] [place], [place] [phone] (W ork) [address] [phone] Social History Tobacco Use Types Packs/Day Years [...] documented as of this encounter Care Teams General Practice Relationship Specialty Start Date End Date Cintia Cobb M.D. PCP - General 02/19/17 02/20/[address] [place] [phone] documented as of this encounter
--- OUTSIDE RECORDS SUMMARY | 2022-08-05 10:16 | XMS_ITS | Encounter Summary ---
:1960 Author Organization [facility] Address [address] [place] [address] Care Team Providers Name Role Phone Cintai Cobb M.D. Primary Care Provider [phone] Encounter Details Date Type Department Care Team Description 07/18/2017 Abstract Department of Ophthalmology in Provider, Historical Natalie Gillette n [address] [place] [address] Social History Tobacco Use Types Packs/Day [...] documented as of this encounter Care Teams Glass Pulverizer Equipment Operator Relationship Specialty Start Date End Date Cintia Cobb M.D. PCP - General 02/19/17 02/20/[address] [place] [phone] documented as of this encounter
--- OUTSIDE RECORDS SUMMARY | 2022-08-05 10:16 | XMS_ITS | Encounter Summary ---
:1960 Author Organization [facility] Address [address] [place] [address] Care Team Providers Name Role Phone Cintia Cobb M.D. Primary Care Provider Encounter Details Date Type Department Care Team Description 08/07/2017 Orders Only Department of [facility] Angélica Cobb Medicine, Jose Daniel Piper M.D. Clinic, in [address] [address] [place], [place] [phone] (W ork) [address] [phone] Social History Tobacco Use Types Packs/Day Years [...] as of this encounter Care Teams Cable Swager Relationship Specialty Start Date End Date Cintia Cobb M.D. PCP - General 02/19/17 02/20/[address] [place] [phone] documented as of this encounter
--- OUTSIDE RECORDS SUMMARY | 2022-08-05 10:16 | XMS_ITS | Encounter Summary ---
:1960 Author Organization [facility] Address [address] [place] [address] Care Team Providers Name Role Phone Cintia Cobb M.D. Primary Care Provider [phone] Reason for Visit Reason Comments Communication Encounter Details Date Type Department Care Team Description 08/13/2017 Clinical Communication Department of [facility] Laura Mejia Communication Medicine, Jose Daniel Motta R.N. [address] [address] [place], [place] [phone] (Work) [phone] Social History Tobacco Use Types Packs/Day Years [...] Pt very pleasant during entire phone conversation. EMS DEVELOPMENT CONSULTANT documented in this encounter Plan of Treatment Not on filedocumented as of this encounter Visit Diagnoses Not on filedocumented in this encounter Additional Health Concerns Assessment Noted Time PHQ-9 Depression Total Score: 18 02/14/2013 9:53 AM CD T documented as of this encounter Care Teams Information Systems Auditor Relationship Specialty Start Date End Date Cintia Cobb M.D. PCP - General 02/19/17 02/20/[address] [place] [phone] documented as of this encounter
--- OUTSIDE RECORDS SUMMARY | 2022-08-05 10:16 | XMS_ITS | Encounter Summary ---
:1960 Author Organization [facility] Address [address] [place] [address] Care Team Providers Name Role Phone Cintia Cobb M.D. Primary Care Provider Reason for Visit Reason Onset Date Comments pacemaker issues 07/20/2017 almost fell Encounter Details Date Type Department Care Team Description 07/20/2017 Clinical Department of Duncan pacemaker issu es Communication Family Medicine, Cintia Copeland (almost fell) Jose Daniel Piper M.D. [facility], in [address] [address] [place], [place] [phone] (Work) [phone] Social History Tobacco Use Types Packs/Day Years [...] surgeries he wants the anaya doctor from [place] to remove his pacemaker and do it for free as she did not follow his living will. Patient expressed a lot of anger at the provider who put in his pacemaker. Please call patient to discuss. EMS LEAD documented in this encounter Plan of Treatment Not on filedocumented as of this encounter Visit Diagnoses Not on filedocumented in this encounter Additional Health Concerns Assessment Noted Time PHQ-9 Depression Total Score: 18 02/14/2013 9:53 AM CD T documented as of this encounter Care Teams Psychologist Counseling Relationship Specialty Start Date End Date Cintia Cobb M.D. PCP - General 02/19/17 02/20/[address] [place] [phone] documented as of this encounter
--- OUTSIDE RECORDS SUMMARY | 2022-08-05 10:16 | XMS_ITS | Encounter Summary ---
:1960 Author Organization [facility] Address [address] [place] [address] Care Team Providers Name Role Phone Kevin Bullock M.D. Primary Care Provider [phone] Encounter Details Date Type Department Care Team Description 06/02/2017 Hospital Encounter HX [facility] Kevin Aguirre M.D. [address] [place] [address] [phone] (Wo rk) Social History Tobacco Use Types [...] Ordered: OV Est Pt Level 4 - 71460 - 25 min Protein Electrophoresis*-[place]at[place] 18594 2. Anemia Hemoglobin has improved. Patient is not consistently taking the iron but this is likely having someaffect. Ordered: OV Est Pt Level 4 - 52885 - 25 min 3. Pacemaker Cardiac S/P Pacemaker site is well healed. Patient continues to believe that many of his current symptoms are related to his pacemaker although I cannot definitely explain how that would occur unless it is simplyrelated to altered physiology with a normal heartbeat. Ordered: OV Est Pt Level 4 - 71603 - 25 min 4. DM2 Blood sugars are acceptable by report. Patient will be due for an A1c in 3 months. Ordered: OV Est Pt Level 4 - 18292 - 25 min 5. Hypertension HTN NOS Patient occasionally has lower blood pressures. Orthostatics were obtained today and normal. Ordered: OV Est Pt Level 4 - 17470 - 25 min Orders: furosemide, 1-2 tab(s), PO, Daily, Leg Swelling, # 180 tab(s), 3 Refill(s), Maintenance, [facility]acy: [facility] gabapentin, 300 mg = 1 cap(s), PO, 2xDay, with 600mg tablet, # 90 cap(s), 6 Refill(s), Maintenance,Pharmacy: [facility] gabapentin, 600 mg = 1 tab(s), PO, 2xDay, with 300mg tab, # 180 tab(s), 11 Refill(s), Maintenance, Pharmacy: [facility] Electronically Signed By: KEVIN BULLOCK MD On: 06/03/2017 06:47 AM Source: [email or web address] Document Id: [id number] documented in this encounter Nursing Notes Alvina [...] LANGSTON LPN - 06/02/2017 18:45 CDT Source: [email or web address] Document Id: [id number] CDT!20 documented in this encounter Miscellaneous Notes Telephone Encounter - Conversion, Historical Provider Ser - 07/09/2017 2:37 PM CDT *Phone Message Document Contains Addenda Addendum by VINEET RAMIREZ LPN on July 09, 2017 15:52:03 CDT please see other message dated 07/09 regarding the subject below. From: HADLEY PARISH ([facility] Bolt Threader) To: [facility] Bennett; Sent: 07/09/2017 14:37:41 [...] op.. I tried to schedule him an early childhood associate appt and he says that will not work. He says it has to be 21st or 28th at 6:15 or 6:30 in the evening. He will not see any other doctor, but Duncan. He is very upset no one has tried to call him back and wants someone to call him right away. [phone] and keep trying. Message: Advice/Action: Source used: [...] back cell phone number ( ) Source: [facility] POWERCHART Document Id: [id number] Telephone Encounter - Brit Felder - 06/20/2017 9:17 AM CDT *Phone Message Document Contains Addenda Addendum by HARVEY REDDY LPN on June 23, 2017 11:14:59 CDT Rere called patient, no answer left message. Addendum by HARVEY REDDY LPN on June 23, 2017 10:41:54 CDT From: HARVEY REDDY LPN ([facility] Nurse Gu[place]ardo) To: ANA CRISTINA FERRELL RN; Sent: 06/23/2017 10:41:54 CDT Subject: FW: *Phone Message From: BRIT FELDER ([facility] Bolt Threader) To: [facility] Gu[facility]; Sent: 06/20/2017 09:17:38 [...] back cell phone number ( ) Source: [facility] POWERCHART Document Id: [id number] Miscellaneous - Kevin Bullock M.D. - 06/09/2017 7:10 PM CDT referral Document Contains Addenda Addendum by RAYMOND DIAZ on June 11, 2017 10:43:33 CDT From: RAYMOND DIAZ ([facility]Referrals) To: KEVIN BULLOCK MD; Sent: 06/11/2017 10:43:33 CDT Subject: RE: referral Referral faxed to [place]. They will contact patient to schedule an appointment. From: KEVIN BULLOCK MD To: [facility]; Sent: 06/09/2017 19:10:00 CDT Subject: referral Referral Request Date: 06/09/2017 Provider: Kevin Whyte [facility] Type of Referral/Department: Neurology Specific Clinical Question: Peripheral neuropathy Pertinent History: _ Best Appointment Days to Avoid: Best Time of day: Date/Time of appointment made: Sign off: Source: [facility] POWERCHART Document Id: [id number] Miscellaneous - Conversion, Historical Provider Ser - [...] 2017 08:37:43 CDT From: HARVEY REDDY LPN ([facility]) To: ART RN [...] done. He was rude and uncooperative. Source: [facility] Gather Document Id: [id number] Miscellaneous - Kevin Bullock M.D. - 06/02/2017 7:15 PM CDT Ambulatory Patient Summary [address] [id number] Visit Information Name: NOEMÍ LUNA [facility] Number: [id number] Current Date: 06/02/2017 19:15:22 Physicians [...] once a day Leg Swelling Routed to [facility] , gabapentin (gabapentin 300 mg oral capsule) 1 cap, Oral, two times a day with 600mg tablet This is aCHANGE gabapentin (gabapentin 600 mg oral tablet) 1 Tablet(s), Oral, two times a day with 300mg tab Routed to [facility] , multivitamin with minerals (Flintstones Complete oral [...] if you dont have one. Go to [email or web address] and click on Create Your Account. Then, follow the directions to complete the online form. Youll be asked for your [facility] number which you can find at the top of this document. Your Goals/Additional instructions: Source: [facility] POWERCHART Document Id: [id number] Miscellaneous - Kevin Bullock M.D. - 06/02/2017 7:15 PM CDT Ambulatory Discharge Medication List [address] [id number] Visit Information Name: NOEMÍ LUNA [facility] Number: [id number] Current Date: 06/02/2017 19:15:19 Attending [...] once a day Leg Swelling [facility] , gabapentin (gabapentin 300 mg oral capsule) 1 cap, Oral, two times a day with 600mg tablet This is aCHANGE gabapentin (gabapentin 600 mg oral tablet) 1 Tablet(s), Oral, two times a day with 300mg tab [facility] , multivitamin with minerals (Flintstones Complete oral [...] MD Signed On:02-JUN-2017 19:15:10 Additional Information: Source: [facility] Gather Document Id: [id number] Miscellaneous - Alvina Langston, L.P.N. - 06/02/2017 [...] LANGSTON LPN - 06/02/2017 18:04 CDT Source: [facility] Gather Document Id: [id number] CDT!9 Miscellaneous - Alvina Langston, L.P.N. - 06/02/2017 5:59 PM CDT Adult [employer] Intake/History Adult [employer] Intake/History Entered On: 06/02/2017 18:04 CDT Performed [...] Preferred Communication Mode : Verbal Languages : Malay Is Patient Female and 13-50 no hysterectomy [...] ALVINA LANGSTON LPN 06/02/2017 17:59 CDT [facility] Document Id: [id number] CDT!46 Sorin Mallory RKevin. - 06/02/2017 2:50 PM CDT Visit From: SORIN WAGNER RN Sent: 06/02/2017 14:50:38 CDT Subject: Visit Attempted to call all 3 numbers for patient in chart to confirm appointment for tonight. No answer. LVM on patients personal cell. Source: [facility] Gather Document Id: [id number] Nichelle Shoemaker - 06/01/2017 3:51 PM CDT Health Maintenance Reminder June 01, 2017 ED CAR[place]LE [address] [facility] [phone] Dear NOEMÍ LUNA, We have developed a [...] visit with us more convenient. Please call [phone] to schedule services that are past due or that may shortly become due (thank you if you have already done so). We will follow up in three to six months should you have more services to schedule at that time. If you have already received any of the listed past due or upcoming services outside of [facility], please call [phone] to add them to your medical record. You may want to consider contacting your health insurance company to make sure these services are covered and find out if there will be any hun-ri-ctdiau expense. If you have any questions about the services listed above, or if you are no longer receiving care from [facility], please contact us at [phone]. Thank you for partnering to provide you with the best care possible. We encourage you to set up your Patient Online Services account [email or web address], where you can communicate in a convenient way with us, schedule appointments, receive lab results and more. To set up your account, you will need your [facility] Number, which is [id number]. Thank you for choosing the Keivn Copeland M.D. care team for your health care needs! You are receiving this notice based on [facility]'s recommended standard for preventive care and ongoing condition-specific services you may need. If you have completed or do not believe you need these services, please contact your provider or care team to discuss this further. Sincerely, NICHELLE HOLLIS Electronic Signature Electronically Signed By: NICHELLE HOLLIS On: June 01, 2017 This document has images extracted. Source: [employer] POWERCHART Document Id: [id number] documented in this encounter Plan of Treatment [...] GMDL Comment: Test Performed by: [facility] - [address] [address] Albumin, S 3.3 (L) 3.4 - 4.7 [...] serum electrophoresis. Test Performed by: [facility] - [address] [address] Specimen (Source) Anatomical Collection Method Collection Time [...] as of this encounter Care Teams Metal Furniture Polisher Relationship Specialty Start Date End Date Kevin Bullock M.D. PCP - General 02/19/17 02/20/[address] [place] [address] [phone] documented as of this encounter
--- OUTSIDE RECORDS SUMMARY | 2022-08-05 10:16 | XMS_ITS | Encounter Summary ---
:1960 Author Organization [facility] Address [address] [place] [address] Care Team Providers Name Role Phone Cintia Cobb M.D. Primary Care Provider [phone] Encounter Details Date Type Department Care Team Description 09/29/2017 Orders Only Department of [facility] Angélica Cobb Medicine, Jose Daniel Piper M.D. Clinic, in [address] [address] [place], [place] [phone] (W ork) [phone] Social History Tobacco Use Types Packs/Day Years [...] documented as of this encounter Care Teams Fruit Distributor Relationship Specialty Start Date End Date Cintia Cobb M.D. PCP - General 02/19/17 02/20/[address] [place] [phone] documented as of this encounter
--- OUTSIDE RECORDS SUMMARY | 2022-08-05 10:16 | XMS_ITS | Encounter Summary ---
:1960 Author Organization [facility] Address [address] [place] [address] Care Team Providers Name Role Phone Cintia Cobb M.D. Primary Care Provider [phone] Encounter Details Date Type Department Care Team Description 02/21/2018 Documentation Department of Infusion Gus Campos R.N. Therapy in [address] [address] [place] [address] Social History Tobacco Use Types [...] Ed called today and spoke with our [facility], stating he is not able to come in today for a recheck but would like to come in this week. The FRONT END LOADER OPERATOR stated he could come in and see [...] as of this encounter Care Teams Director Radiation Oncology Relationship Specialty Start Date End Date Cintia Cobb M.D. PCP - General 02/19/17 02/20/[address] [address] documented as of this encounter
--- OUTSIDE RECORDS SUMMARY | 2022-08-05 10:16 | XMS_ITS | Encounter Summary ---
:1960 Author Organization [facility] Address [address] [place] [address] Care Team Providers Name Role Phone Cintia Cobb M.D. Primary Care Provider [phone] Encounter Details Date Type Department Care Team Description 01/09/2018 Infusion Department of Infusion Duncan Copeland Wound Toe Without Damage To Nail Open Subsequent (Primary Dx); Therapy in Jose Daniel Piper M.D. Neuropathy Peripheral; [address] Diabetes Mellitus Type 2 (HCC) [address] [place] [phone] Social History Tobacco Use Types Packs/Day Years [...] difficulties with this. 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 Ed's reports using hydrogen peroxide in the [...] and healthy. I recommended Ed see a coke crane operator for evaluation of his wounds, toenails, and calloused areas. I provided him with Dr. Blackwell's name and let him know she typically sees patient's here on Mondays. Iadvised he could either call and set up and appointment with her here, or could check with [facility] on podiatry schedule there. He will consider this as he has not seen a coke crane operator before, but is not sure he can make it work with his schedule. In the meantime, they will continue with every other day dressing changes and will follow up with [facility] in a week or so. I provided [...] documented as of this encounter Care Teams Top And Seat Cover Fitter Relationship Specialty Start Date End Date Cintia Cobb M.D. PCP - General 02/19/17 02/20/[address] [address] documented as of this encounter
--- OUTSIDE RECORDS SUMMARY | 2022-08-05 10:16 | XMS_ITS | Encounter Summary ---
:1960 Author Organization [facility] Address [address] [place] [address] Care Team Providers Name Role Phone Cintia Cobb M.D. Primary Care Provider [phone] Encounter Details Date Type Department Care Team [...] documented as of this encounter Care Teams Student Services Advisor Relationship Specialty Start Date End Date Cintia Cobb M.D. PCP - General 02/19/17 02/20/[address] [place] [phone] documented as of this encounter
--- OUTSIDE RECORDS SUMMARY | 2022-08-05 10:16 | XMS_ITS | Encounter Summary ---
:1960 Author Organization [facility] Address [address] [place] [address] Care Team Providers Name Role Phone Cintia Cobb M.D. Primary Care Provider [phone] Reason for Visit Reason Onset Date Comments Radilogy semi-urgent result 12/22/2017 Encounter Details Date Type Department Care Team Description 12/22/2017 Clinical Loki Gallegos Communication Emergency Eugene W III, semi-urgen t result Department M.D. [address] [place] [phone] Social History Tobacco Use Types Packs/Day Years [...] documented as of this encounter Care Teams Hearing Aid Consultant Relationship Specialty Start Date End Date Cintia Cobb M.D. PCP - General 02/19/17 02/20/[address] [phone] documented as of this encounter
--- OUTSIDE RECORDS SUMMARY | 2022-08-05 10:16 | XMS_ITS | Encounter Summary ---
:1960 Author Organization [facility] Address [address] [place] [address] Care Team Providers Name Role Phone Cintia Cobb M.D. Primary Care Provider [phone] Reason for Visit Reason Comments Communication Encounter Details Date Type Department Care Team Description 09/01/2017 Clinical Communication Department of [facility] Medicine, Cintia Jean Baptiste, judith Piper M.D. [address] [phone] Social History Tobacco Use Types Packs/Day Years [...] documented as of this encounter Care Teams Salon Shampoo Assistant Relationship Specialty Start Date End Date Cintia Cobb M.D. PCP - General 02/19/17 02/20/[address] [place] [phone] documented as of this encounter
--- OUTSIDE RECORDS SUMMARY | 2022-08-05 10:17 | XMS_ITS | Encounter Summary ---
:1960 Author Organization [facility] Address [address] [place] [address] Care Team Providers Name Role Phone Cintia Cobb M.D. Primary Care Provider [phone] Encounter Details Date Type Department Care Team Description 02/05/2017 Confidential HX RST NO MAPPING Jennifer Shaffer M.D. [address] [place], [place] [phone] (Wo rk) Social History Tobacco Use Types Packs/Day Years Used Date Smoking Tobacco: Never Sex Assigned at Date Recorded Not on file documented as of this encounter Progress Notes Jennifer Shaffer M.D. - 02/05/2017 10:08 AM CDT DEMOGRAPHIC INFORMATION Clinic Number: [id number] Patient Name: Laz Luna Age: 56 Y Birthdate: 1960 Sex: M [address] [facility] City: [place] [address] CONFIDENTIAL NOTE Service Date/Time: 05-Feb-2017 10:08 Provider: Jennifer Shaffer MD Pager: [phone] Service: CV Type/Desc: MIS Status: Fnl Revision #: 1 CHIEF COMPLAINT/PURPOSE OF VISIT Note created for correspondence purposes only on behalf of Mr. Zane Pineda. Original: [email or web address] Electronically Signed: 04-Mar-2017 10:34 by Shama Shaffer MD Clinical Notes - [id number] Id: [id number] Status: Fnl documented in this encounter Plan of Treatment Not on filedocumented as of this encounter Visit Diagnoses Not on filedocumented in this encounter Additional Health Concerns Assessment Noted Time PHQ-9 Depression Total Score: 18 02/14/2013 9:53 AM CD T documented as of this encounter Care Teams Report Clerk Relationship Specialty Start Date End Date Cintia Cobb M.D. PCP - General 02/19/17 02/20/[address] [place] [phone] documented as of this encounter
--- OUTSIDE RECORDS SUMMARY | 2022-08-05 10:17 | XMS_ITS | Encounter Summary ---
:1960 Author Organization [facility] Address [address] [place] [address] Care Team Providers Name Role Phone Elsewhere, [...] 56 Y Birthdate: 1960 Sex: M Address: [address] [place] [address] [address] City: [place] [address] CONFIDENTIAL NOTE Service Date/Time: 16-Jan-2017 09:33 Provider: Dilcia Donaldson, MSN, MHA, RN Pager: [phone] Service: CVHREP Type/Desc: MIS Status: Fnl Revision #: 1 CHIEF COMPLAINT/PURPOSE OF VISIT Patient called Ellen Pham RN and became upset with her for asking [facility] number. Patient then was upset because RN asked for his full name. Nurse Manager Assurance Dilcia Donaldson called patient back and was able to obtain information from patient to inquire what specifically patient was concerned about. Patient refused the second time to give information needed for follow up. Nurse sales administration manager informedpatient without name and birthday no other information could be given. Patient then was able to giveneeded verifications. Patient informed procedure on Thursday for ablation. Patient would be admitted overnight and discharged Thursday late afternoon. Patient also informed if he lives greater than 30 minutes from [place] will need to stay in [place] until Thursday. Patient states can [facility] father in laws . Per information obtained from packaging sales consultant can fly after Thursdaybut unable to lift greater than 5 pounds for 2 weeks. Patient hung up on nurse sales administration manager after information was given . Original: mgj Electronically Signed: 16-Jan-2017 09:47 by Tony Donaldson, MSN, CARL, RN Clinical Notes - [id number] Id: [id number] Status: Fnl Ellen Pham R.N. - 01/16/2017 9:07 AM CDT DEMOGRAPHIC INFORMATION Clinic Number: [id number] Patient Name: Laz Luna Age: 56 Y Birthdate: 1960 Sex: M Address: [address] [place] [address] City: [place] [address] CONFIDENTIAL NOTE Service Date/Time: 16-Jan-2017 09:07 Provider: Ellen Pham RN Pager: [phone] Service: CVHREP Type/Desc: MIS Status: Fnl Revision #: 2 CHIEF COMPLAINT/PURPOSE OF VISIT Left Message stating he had an emergency. This phone communication was initiated by a [facility] healthcare provider. The phone communication was with the patient. Phone number patient/caller is calling from or the number of the provider: [phone]. Follow-up phone number: Same as above. The patient's/caller's preferred language is Frisian. IMPRESSION/REPORT/PLAN Today I am covering for Alysia [...] back. Around 814, Janina Miranda, a CV Defensive Line Coach called and left a message for me [...] keep these appointments. I have let my cnc supervisor, Dilcia Donaldson, know about this phone call and she was going to try to follow up with him. RESPONSE TO EDUCATION /INFORMATION GIVEN. Patient/caller unable to teach back. TYPE OF PHONE CALL. Telephone follow-up. Original: maintenance specialist Electronically Signed: 16-Jan-2017 09:26 by Argelia Pham RN Clinical Notes - [id number] Id: [id number] Status: Fnl documented in this encounter Plan of Treatment Not on filedocumented as of this encounter Visit Diagnoses Not on filedocumented in this encounter Additional Health Concerns Infection Onset Date Last Indicated Resolved Time COVID19 Pending 09/30/2021 09/30/2021 09/30/2021 11:06 AM MANAGER MARKET DEVELOPMENT COVID19 Pending 10/03/2021 10/03/2021 10/23/2021 6:10 AM MANAGER MARKET DEVELOPMENT Assessment Noted Time PHQ-9 Depression Total Score: 18 02/14/2013 9:53 AM CD T documented as of this encounter Care Teams Service Writer Advisor Relationship Specialty Start Date End Date Elsewhere, Pcp PCP - General Internal Medicine 06/21/22 documented as of this encounter
--- OUTSIDE RECORDS SUMMARY | 2022-08-05 10:17 | XMS_ITS | Encounter Summary ---
:1960 Author Organization [facility] Address [address] [place] [address] Care Team Providers Name Role Phone Unavailable Primary Care Provider Unavailable Encounter Details Date Type Department Care Team Description 01/05/2017 Hospital Encounter HX [facility] Yariel Shaffer i, M.D. [address] [place], [place] [phone] (Wo rk) Social History Tobacco Use Types [...] answer From: DAVONTE PRASAD ( Family Medicine Supervisor Aircraft Cleaning) To: [facility] Family Medicine Nurse Bennett; Sent: 04/20/2017 10:00:59 CDT Subject: *Phone Message Caller is: ( x ) Patient ( ) Mother ( ) Father ( ) Spouse ( ) Daughter ( ) Son ( ) Pharmacy ( ) Other: Physician: Cintia Cobb Patient MRN #: Reason for Call: Patient would like to talk /complain about several issues. Please call to discuss [phone]. Patient also left a VM- he wanted [...] back cell phone number ( ) Source: [facility] POWERCHART Document Id: [id number] documented in this encounter Plan of Treatment [...] Erythrocytes 3.59 (L) 4.32 - POWERCHART 5.72 [id number] Hemoglobin 11.7 (L) 13.5 - POWERCHART 17.5 [...] Code Phon e Number POWERCHART Thyroid Function [place] (01/05/2017 5:38 PM CDT) P athologist Signature TSH, Sensitive 0.6 0.3 - 4.2 POWERCHART MIUL Comment: Test Performed by: [address] [address] Specimen (Source) Anatomical Collection Method Collection Time Re ceived Time Location / / Volume Laterality Blood 01/05/2017 5:38 PM CDT Jennifer Shaffer M.D. LAB BLOOD ADD-ON Performing Organization Address City/[facility]/ZIP Code Phon e Number POWERCHART Sodium (01/05/2017 5:38 PM CDT) athologist Signature Sodium, S 142 135 - 145 POWERCHART MMOLL Specimen (Source) Anatomical Collection Method Collection Time Re ceived Time Location / / Volume Laterality Blood 01/05/2017 5:38 PM CDT Jennifer Shaffer M.D. LAB BLOOD ADD-ON Performing Organization Address City/[facility]/ZIP Code Phon e Number POWERCHART Potassium (01/05/2017 [...] 1.35 MGDL HXeGFR (MDRD) >60 >=60 POWERCHART [id number] eGFR >60 >=60 POWERCHART Black/ [id number] [place] Specimen (Source) Anatomical Collection Method Collection Time [...]
--- OUTSIDE RECORDS SUMMARY | 2022-08-05 10:17 | XMS_ITS | Encounter Summary ---
:1960 Author Organization [facility] Address [address] [place] [address] Care Team Providers Name Role Phone Unavailable Primary Care Provider Unavailable Encounter Details Date Type Department Care Team Description 07/13/2016 Hospital Encounter HX [facility] ED Alexandra Barker M.D. [address] [place] [address] (Wo rk) Social History Tobacco Use Types Packs/Day Years Used Date Smoking Tobacco: Never Assessed Sex Assigned at Date Recorded Not on file documented as of this encounter Last Filed Vital Signs Vital Sign Reading Time Taken Comments Blood Pressure 142/83 07/13/2016 7:58 PM DRIER BELT CONVEYOR Pulse 37 07/13/2016 7:10 PM DRIER BELT CONVEYOR Temperature - - Respiratory Rate 20 07/13/2016 7:58 PM DRIER BELT CONVEYOR Oxygen Saturation - - Inhaled Oxygen Concentration - - Weight - - Height - - Body Mass Index - - documented in this encounter Discharge Summaries Lesli Sotomayor, R.N. - 07/13/2016 7:59 PM CST ED Depart Summary [facility] Emergency Department Clinical Discharge Summary PERSON INFORMATION Name NOEMÍ LUNA Age 56 Years 1960 12:00 AM Sex Male Language Ethiopian PCP KEVIN KILGORE MD Marital Status Visit Id Visit Reason Rash; Wants someone to take a oicture of his rash Specialty Enc Type Emergency Med Service Emergency Medicine Referred by Track Group [facility] ED Discharge 07/13/2016 7:59 PM Tracking Id [id number] Checkout 07/13/2016 7:59 PM Checkin 07/13/2016 7:03 PM Acuity 4 -Less Urgent Dispo Type * Discharged to Home or Self Care Arrival 07/13/2016 7:03 PM Reg Status Complete LOS 000 00:56 Address: [address] [place] [phone] Comment: PROVIDER INFORMATION Provider Role Provider Contact Time CIERRA BARKER MD ED Provider 07/13/16 19:07 LESLI SOTOMAYOR LOAN APPROVER Nurse 07/13/16 19:15 DIAGNOSIS Rash Groin Comment: PATIENT EDUCATION INFORMATION Instructions: Self-Care for Skin Rashes Follow up: With: Address: When: KEVIN KILGORE [address] [place] [id number] Business (1) Within As Needed Comments: The photo of your rash will be sent to plastic surgeon Dr. Richard. Source: [facility] POWERCHART Document Id: [id number] R BELT CONVEYOR Lesli Sotomayor, R.N. - 07/13/2016 7:59 PM CST ED Discharge Instructions [address] [address] Name: NOEMÍ LUNA Date of : 1960 12:00 AM Visit Date: 07/13/2016 7:03 PM [facility] Number: [phone] Address: [address] [place] [phone] Primary Care Provider: KEVIN KILGORE MD IMPORTANT: [facility] in [place] would like to thank you for allowing us to assist you with your healthcare needs. The following includes patient education materials and informationregarding your injury/illness. Diagnosis: Rash Groin Follow-Up Instructions: With: Address: When: KEVIN FERRER-[address] [address] [phone] [employer] (1) Within As Needed Comments: The photo [...] control itching of many rashes. ?? Using ppfd-ugv-irpcmuc hydrocortisone cream on small rashes may help reduce swelling and itching. Most zoqg-olq-ofyyxoz antifungal medications can treat athletes foot and [...] resistant bacteria (MRSA) on your skin. ?? [id number] [facility], [address] [place] [address]. All rights reserved. This information is not [...] have one. Go to [email or web address] and click on Create Your [...] arrange a ride home with a responsible democrat. CARLYLE Contreras ED J , or responsible democrat have received this information and my questions [...] arrange a ride home with a responsible democrat. CARLYLE Contreras ED J , or responsible democrat have received this information and my questions have been answered. I have discussed any challenges I see with this plan with the nurse or physician. Patient Signature or Responsible Libertarian/Relationship Date Time Provider Signature Date Time Source: [facility] POWERCHART Document Id: [id number] R BELT CONVEYOR documented in this encounter Medications at Time [...] ED Disposition Summary Entered On: 07/13/2016 19:58 DRIER BELT CONVEYOR Performed On: 07/13/2016 19:58 DRIER BELT CONVEYOR by LESLI SOTOMAYOR RN ED Disposition Summary Present in Room During Exam/Procedure : Alone Mode of Discharge : Ambulatory Transportation : Private vehicle Printed Discharge Instructions Given to Patient : Yes Patient Status at Discharge from ED : Improved LESLI SOTOMAYOR RN - 07/13/2016 19:58 DRIER BELT CONVEYOR Source: [employer] Document Id: [id number] DRIER BELT CONVEYOR!7 R BELT CONVEYOR Lesli Sotomayor R.N. - 07/13/2016 7:58 PM CST ED Pain Assessment ED Pain Assessment Entered On: 07/13/2016 19:58 DRIER BELT CONVEYOR Performed On: 07/13/2016 19:58 DRIER BELT CONVEYOR by LESLI SOTOMAYOR RN Pain Assessment Pain Symptoms : No LESLI SOTOMAYOR RN - 07/13/2016 19:58 DRIER BELT CONVEYOR Source: [employer] Document Id: [id number] DRIER BELT CONVEYOR!3 R BELT CONVEYOR Cierra Barker M.D. - 07/13/2016 7:41 PM CST Rash Document Contains Addenda Addendum by CIERRA BARKER MD on July 14, 2016 0:[address] Doyle sent an email stating that [...] Note : Chief Complaint Description 07/13/2016 19:10 DRIER BELT CONVEYOR Chief Complaint Description Pt comes in to ER with c/o of a rash to right lowerabdomen and just want a picture taken of it for another Dr. . History of Present Illness States he is here to have his groin rash photographed, as suggested by his plastic surgeon, Dr. April Doyle, from [place]. The rash is red, weeping, but not [...] on 09/29/2012 at 52 years. Comments: 09/30/2012 DRIER BELT CONVEYOR 15:06 STEVE COUCH APRN OPS ANALYST left Genital warts (078.19) Comments: 09/30/2013 DRIER BELT CONVEYOR 11:47 ANOOP MESSER PUBLIC ADDRESS TECHNICIAN onset unknown Tinea pedis* (110.4) Comments: 09/30/2013 DRIER BELT CONVEYOR 11:47 ANOOP MESSER PUBLIC ADDRESS TECHNICIAN onset unknown Tinea cruris. (110.3) Comments: 09/30/2013 DRIER BELT CONVEYOR 11:47 ANOOP MESSER PUBLIC ADDRESS TECHNICIAN onset unknown. Surgical history: Gastric bypass ([id number]) on 11/19/2014 at 54 Years. Cystoscopy ([id number]) on 12/26/2009 at 49 Years. Comments: 02/20/2010 08:36 - STEVE ANDREA CNP [place] [facility] / normal PSA, TOTAL SCREENING (G0103) on 12/26/2009 at 49 Years. Comments: 02/20/2010 08:38 - STEVE ANDREA CNP Done at [place] / Result: 1.55 Discectomy ([id number]) on 02/19/1989 at 28 Years. Comments: 12/28/2009 09:38 - STEVE ANDREA OPS ANALYST lumbar L4-L5. Family history: Diabetes mellitus Mother [...] Examination Vital Signs: Vital Signs 07/13/2016 19:10 DRIER BELT CONVEYOR Temperature Core 36.4 DegC LOW Peripheral Pulse Rate 37 /min <LLOW Respiratory Rate 18 /min SpO2 100 % Systolic Blood Pressure 144 mmHg HI Diastolic Blood Pressure 71 mmHg Mean Arterial Pressure 95 mmHg , SpO2 07/13/2016 19:10 DRIER BELT CONVEYOR SpO2 100 % . General: Alert and [...] PM This document has images extracted. Source: [facility] QPSoftwareCHART Document Id: [id number]} R BELT CONVEYOR Manan Ramírez, R.N. - 07/13/2016 7:12 PM CST ED Primary Assessment Document Has Been Updated ED Primary Assessment Entered On: 07/13/2016 19:13 DRIER BELT CONVEYOR Performed On: 07/13/2016 19:12 DRIER BELT CONVEYOR by MANAN RAMÍREZ RN Reason For Visit (As Of: 07/13/2016 19:13:41 DRIER BELT CONVEYOR) Problems(Active) BPH without urinary obstruction (ICD-9-CM :600.00 ) Name of Problem: BPH without urinary obstruction; Recorder: STEVE ANDREA APRN, CNP; Confirmation: Confirmed ; Classification: Medical ; Code: 600.00 ; Contributor System: [employer] ; Last Updated: 02/15/2010 10:00 CDT ; Life Cycle Date: 02/15/2010 ; Life Cycle Status: Active ; Responsible Provider: STEVE ANDREA APRN, CNP; Vocabulary: ICD-9-CM ; Comments: 09/30/2013 11:46 - ANOOP QUEVEDO PUBLIC ADDRESS TECHNICIAN onset unknown DM II (or NOS), uncontrolled (ICD-9-CM :250.02 ) Name of Problem: DM II (or NOS), uncontrolled ; Onset Date: 12/28/2009 ; Recorder: STEVE ANDREA APRN, CNP; Confirmation: Confirmed ; Classification: Medical ; Code: 250.02 ; Contributor System: [employer] ; Last Updated: 07/24/2011 10:45 DRIER BELT CONVEYOR ; Life Cycle Date: 12/05/2010 ; Life [...] ICD-9-CM ; Comments: 09/30/2013 11:47 - ROHIT QEUVEDOSSICA Abby ZURITA onset unknown Erectile dysfunction* (ICD-9-CM [...] System: Power[employer] ; Last Updated: 07/29/2014 7:02 DRIER BELT CONVEYOR ; Life Cycle Status: Active ; Responsible Provider: KEVIN KILGORE MD; Vocabulary: ICD-9-CM Flutter Atrial NOS (ICD-9-CM :427.32 ) Name of Problem: Flutter Atrial NOS ; Recorder: JOSIE ACSTANEDA LPN, RT; Confirmation: Confirmed ; Classification: Medical ; Code: 427.32 ; Contributor System: [employer] ; Last Updated: 01/04/2015 10:57 CDT ; Life Cycle Status: Active ; Vocabulary: ICD-9-CM Fracture Closed Radial head (ICD-9-CM :813.05 ) Name of Problem: Fracture Closed Radial head ; OnsetDate: 09/29/2012 ; Recorder: STEVE ANDREA APRN, CNP; Confirmation: Confirmed ; Classification: Medical ; Code: 813.05 ; Contributor System: [employer] ; Last Updated: 09/30/2012 15:06 DRIER BELT CONVEYOR ; Life Cycle Date: 09/30/2012 ; Life Cycle Status: Active ; Responsible Provider: STEVE ANDREA APRN, CNP; Vocabulary: ICD-9-CM ; Comments: 09/30/2012 15:06 - STEVE ANDREA APRN, CNP left Genital warts (ICD-9-CM :078.19 ) Name of Problem: Genital warts ; Recorder: MARILUZ FRAGA MD; Confirmation: Confirmed ; Classification: UPDATE NEEDED ; Code: 078.19 ; Contributor System: PowerChart; Last Updated: 11/05/2015 4:20 DRIER BELT CONVEYOR ; Life Cycle Date: 02/11/2013 ; Life [...] Code: 695.89 ; Last Updated: 07/14/2012 14:36 DRIER BELT CONVEYOR ; Life Cycle Status: Active ; Responsible [...] System: PowerChart ; Last Updated: 09/05/2010 9:56 DRIER BELT CONVEYOR ; Life Cycle Date: 09/05/2010 ; Life [...] Medical ; Code: 110.3 ; Contributor System: [employer] ; Last Updated: 06/01/2013 9:06 CDT ; Life Cycle Date: 06/01/2013 ; Life Cycle Status: Active ; Responsible Provider: MARILUZ FRAGA MD; Vocabulary: ICD-9-CM ; Comments: 09/30/2013 11:47 Shea ANOOP QUEVEDO RLPN onset unknown Tinea pedis* (ICD-9-CM :110.4 ) Name of Problem: Tinea pedis* ; Recorder: MARILUZ FRAGA MD; Confirmation: Confirmed ; Classification: Medical ; Code: 110.4 ; Contributor System: [employer] ; Last Updated: 02/02/2014 8:24 CDT ; Life Cycle Date: 06/01/2013 ; Life Cycle Status: Active ; Responsible Provider: MARILUZ FRAGA MD; Vocabulary: ICD-9-CM ; Comments: 09/30/2013 11:47 Shea AONOP QUEVEDO R PUBLIC ADDRESS TECHNICIAN onset unknown Ulcer of skin NOS (ICD-9-CM :707.9 ) Name of Problem: Ulcer of skin NOS ; Recorder: HALEIGH SCHULTZ APRN, CNP; Confirmation: Confirmed ; Classification: UPDATE NEEDED ; Code: 707.9 ; Contributor System:PowerChart ; Last Updated: 09/18/2010 8:25 DRIER BELT CONVEYOR ; Life Cycle Date: 09/18/2010 ; Life Cycle Status: Active ; Responsible Provider: HALEIGH SCHULTZ APRN, CNP; Vocabulary: ICD-9-CM ; Comments: 09/30/2013 11:47 Shea ANOOP QUEVEDO R PUBLIC ADDRESS TECHNICIAN onset unknown Unspecified Adjustment Reaction (ICD-9-CM :309.9 ) Name of Problem: Unspecified Adjustment Reaction ; Onset Date: 05/05/2013 ; Confirmation: Confirmed ; Classification: Medical ; Code: 309.9 ; Contributor System: [facility]_HX_PR_UPLOAD ; Last Updated: 12/03/2013 18:36 CDT ; Life Cycle Status: Active ; Vocabulary: ICD-9-CM ; Comments: - Unspecified adjustment reaction Urge Incontinence (ICD-9-CM :788.31 ) Name of Problem: Urge Incontinence ; Recorder: STEVE ANDREA CNP; Confirmation: Confirmed ; Classification: Medical ; Code: 788.31 ; Contributor System: [employer] ; Last Updated: 02/20/2010 8:39 CDT ; Life Cycle Date: 02/20/2010 ; Life Cycle Status: Active; Responsible Provider: STEVE ANDREA APRN, CNP; Vocabulary: ICD-9-CM ; Comments: 09/30/2013 11:46 - ANOOP QUEVEDO PUBLIC ADDRESS TECHNICIAN onset unknown Diagnoses(Active) Rash Date: 07/13/2016 ; Diagnosis Type: Reason For Visit ; Confirmation: Complaint of ; Clinical Dx:Rash ; Classification: Medical ; Clinical Service: Emergency medicine ; Code: PNED ; Probability: 0 ; Diagnosis Code: [id number] Triage Chief Complaint Description : see triage Mode of Arrival ED : Private vehicle, Ambulatory Track : Medical Languages : Ethiopian Treatments Prior to Arrival : None Is Patient Female and 13-50 no hysterectomy : No MANAN RAMÍREZ RN - 07/13/2016 19:12 DRIER BELT CONVEYOR Pain Assessment Pain Symptoms : No MANAN RAMÍREZ RN - 07/13/2016 19:12 DRIER BELT CONVEYOR Respiratory Airway : Patent Respirations : Unlabored Respiratory Pattern : Regular MANAN RAMÍREZ RN - 07/13/2016 19:12 DRIER BELT CONVEYOR Cardiovascular Heart Rhythm : Regular Skin Color : Normal for ethnicity Skin Description : Dry Skin Temperature : Warm MANAN RAMÍREZ RN - 07/13/2016 19:12 DRIER BELT CONVEYOR Neurological Last Well Time Known : Not applicable Level of Consciousness : Alert Orientation : Oriented x 3 Characteristics of Speech : Appropriate for age MANAN RAMÍREZ RN - 07/13/2016 19:12 DRIER BELT CONVEYOR ED Psychosocial Affect/Behavior : Calm Domestic Abuse Concerns : None Behavioral Health Screen/Safety Assmt : No MANAN RAMÍREZ RN - 07/13/2016 19:12 DRIER BELT CONVEYOR Gastrointestinal Nutrition ED : Adequate MANAN RAMÍREZ RN - 07/13/2016 19:12 DRIER BELT CONVEYOR Musculoskeletal Fall Prevention Education Provided : MANAN RUIZ RN - 07/13/2016 19:12 DRIER BELT CONVEYOR Social Habits Exposure to Tobacco Smoke : Care provider denies smoking in home, Other: never Smoking Status : Never smoker Tobacco 2A : No Tobacco Use/Currently Using : No Tobacco Use/Last 30 Days : No Tobacco Use/Last 12 months : No MANAN RAMÍREZ RN - 07/13/2016 19:12 DRIER BELT CONVEYOR Alcohol Use Grid Alcohol Use : No MANAN RAMÍREZ RN - 07/13/2016 19:12 DRIER BELT CONVEYOR Recreational Drug Use Grid Drug Use : None MANAN RAMÍREZ RN - 07/13/2016 19:12 DRIER BELT CONVEYOR Source: [facility] POWERCHART Document Id: [id number] DRIER BELT CONVEYOR!45 R BELT CONVEYOR Manan Ramírez R.N. - 07/13/2016 7:10 PM CST ED Triage Assessment Document Has Been Updated ED Triage Assessment Entered On: 07/13/2016 19:12 DRIER BELT CONVEYOR Performed On: 07/13/2016 19:10 DRIER BELT CONVEYOR by MANAN RAMÍREZ RN Reason For Visit (As Of: 07/13/2016 19:12:45 DRIER BELT CONVEYOR) Problems(Active) BPH without urinary obstruction (ICD-9-CM :600.00 ) Name of Problem: BPH without urinary obstruction; Recorder: STEVE ANDREA APRN, CNP; Confirmation: Confirmed ; Classification: Medical ; Code: 600.00 ; Contributor System: [employer] ; Last Updated: 02/15/2010 10:00 CDT ; [...] Medical ; Code: 250.02 ; Contributor System: [employer] ; Last Updated: 07/24/2011 10:45 DRIER BELT CONVEYOR ; Life Cycle Date: 12/05/2010 ; Life [...] System: PowerChart ; Last Updated: 07/29/2014 7:02 DRIER BELT CONVEYOR ; Life Cycle Status: Active ; Responsible [...] System: PowerChart ; Last Updated: 09/30/2012 15:06 DRIER BELT CONVEYOR ; Life Cycle Date: 09/30/2012 ; Life Cycle Status: Active ; Responsible Provider: STEVE ANDREA APRN, CNP; Vocabulary: ICD-9-CM ; Comments: 09/30/2012 15:06 - STEVE ANDREA APRN, CNP left Genital warts (ICD-9-CM :078.19 ) Name of Problem: Genital warts ; Recorder: MARILUZ FRAGA MD; Confirmation: Confirmed ; Classification: UPDATE NEEDED ; Code: 078.19 ; Contributor System: [employer]; Last Updated: 11/05/2015 4:20 DRIER BELT CONVEYOR ; Life Cycle Date: 02/11/2013 ; Life [...] Code: 695.89 ; Last Updated: 07/14/2012 14:36 DRIER BELT CONVEYOR ; Life Cycle Status: Active ; Responsible [...] Obesity NOS ; Recorder: STEVE ANDREA APRN OPS ANALYST; Confirmation: Confirmed ; Classification: Medical ; Code: 278.00 ; Contributor System: PowerChart ; Last Updated: 09/05/2010 9:56 DRIER BELT CONVEYOR ; Life Cycle Date: 09/05/2010 ; Life Cycle Status: Active ; Responsible Provider: STEVE ANDREA APRN OPS ANALYST; Vocabulary: ICD-9-CM ; Comments: 09/30/2013 11:ANOOP ISAAC [...] Medical ; Code: 110.3 ; Contributor System: [employer] ; Last Updated: 06/01/2013 9:06 CDT ; Life Cycle Date: 06/01/2013 ; Life Cycle Status: Active ; Responsible Provider: MARLIUZ FRAGA MD; Vocabulary: ICD-9-CM ; Comments: 09/30/2013 11:ANOOP ISAAC RLJACK onset unknown Tinea pedis* (ICD-9-CM :110.4 ) Name of Problem: Tinea pedis* ; Recorder: MARILUZ FARGA MD; Confirmation: Confirmed ; Classification: Medical ; Code: 110.4 ; Contributor System: [employer] ; Last Updated: 02/02/2014 8:24 CDT ; Life Cycle Date: 06/01/2013 ; Life Cycle Status: Active ; Responsible Provider: MARILUZ FRAGA MD; Vocabulary: ICD-9-CM ; Comments: 09/30/2013 11:ANOOP ISAAC PUBLIC ADDRESS TECHNICIAN onset unknown Ulcer of skin NOS (ICD-9-CM :707.9 ) Name of Problem: Ulcer of skin NOS ; Recorder: HALEIGH SCHULTZ APRN, CNP; Confirmation: Confirmed ; Classification: UPDATE NEEDED ; Code: 707.9 ; Contributor System:[employer] ; Last Updated: 09/18/2010 8:25 DRIER BELT CONVEYOR ; Life Cycle Date: 09/18/2010 ; Life Cycle Status: Active ; Responsible Provider: HALEIGH SCHULTZ APRN, CNP; Vocabulary: ICD-9-CM ; Comments: 09/30/2013 11:ANOOP ISAAC PUBLIC ADDRESS TECHNICIAN onset unknown Unspecified Adjustment Reaction (ICD-9-CM :309.9 ) Name of Problem: Unspecified Adjustment Reaction ; Onset Date: 05/05/2013 ; Confirmation: Confirmed ; Classification: Medical ; Code: 309.9 ; Contributor System: [facility]_HX_PR_UPLOAD ; Last Updated: 12/03/2013 18:36 CDT ; Life Cycle Status: Active ; Vocabulary: ICD-9-CM ; Comments: - Unspecified adjustment reaction Urge Incontinence (ICD-9-CM :788.31 ) Name of Problem: Urge Incontinence ; Recorder: STEVE ANDREA CNP; Confirmation: Confirmed ; Classification: Medical ; Code: 788.31 ; Contributor System: [employer] ; Last Updated: 02/20/2010 8:39 CDT ; [...] PNED ; Probability: 0 ; Diagnosis Code: [id number] Triage Chief Complaint Description : Pt comes in to ER with c/o of a rash to right lower abdomen and just want a picture taken of it for another Dr. Information Given By : Patient Present in Room During Exam/Procedure : Alone Mode of Arrival ED : Private vehicle, Ambulatory Track : Medical Languages : Ethiopian Vital Signs Assessed : Yes Treatments Prior to Arrival : None Is Patient Female and 13-50 no hysterectomy : No MANAN RAMÍREZ RN - 07/13/2016 19:10 DRIER BELT CONVEYOR Vital Signs Temperature Core : 36.4 DegC(Converted to: 97.5 DegF) (LOW) Peripheral Pulse Rate : 37 /min (<LLOW) Respiratory Rate : 18 /min Systolic Blood Pressure : 144 mmHg (HI) Diastolic Blood Pressure : 71 mmHg NIBP Mean : 95 mmHg SpO2 : 100 % MANAN RAMÍREZ RN - 07/13/2016 19:10 DRIER BELT CONVEYOR Pain Assessment Pain Symptoms : No MANAN RAMÍREZ RN - 07/13/2016 19:10 DRIER BELT CONVEYOR Comfort Measures Comfort Measures Grid Rest : Yes MANAN RAMÍREZ RN - 07/13/2016 19:10 DRIER BELT CONVEYOR ED Physician Notification Time ED Physician Notification Time : 07/13/2016 19:12 DRIER BELT CONVEYOR MANAN RAMÍREZ RN - 07/13/2016 19:10 DRIER BELT CONVEYOR ERIN ERIN Level 1 : No ERIN Level 2 : No ERIN Level 3 : One MANAN RAMÍREZ RN - 07/13/2016 19:10 DRIER BELT CONVEYOR DCP GENERIC CODE Tracking Acuity : 4 -Less Urgent Tracking Group : [facility] ED MANAN RAMÍREZ RN - 07/13/2016 19:10 DRIER BELT CONVEYOR Allergy (As Of: 07/13/2016 19:12:45 DRIER BELT CONVEYOR) Allergies (Active) Cipro Estimated Onset Date: Unspecified ; Created By: STEVE ANDREA APRN, CNP; Reaction Status: Active ; Category: Drug ; Substance: Cipro ; Type: Allergy ; Updated By: STEVE ANDREA APRN, CNP; Reviewed Date: 07/13/2016 19:12 DRIER BELT CONVEYOR Influenza Virus Vaccine Estimated Onset Date: Unspecified ; Reactions: diarrhea ; Created By: STEVE ANDREA APRN, CNP; Reaction Status: Active ; Category: Drug ; Substance: Influenza Virus Vaccine ; Type: Intolerance ; Updated By: STEVE ANDREA APRN, CNP; Reviewed Date: 07/13/2016 19:12 DRIER BELT CONVEYOR Immunizations Immunizations Current : Yes MANAN RAMÍREZ RN - 07/13/2016 19:10 DRIER BELT CONVEYOR Source: [facility] [employer] Document Id: [id number] DRIER BELT CONVEYOR!35 R BELT CONVEYOR documented in this encounter Miscellaneous Notes Miscellaneous - Conversion, Historical Provider Ser - 07/13/2016 7:59 PM DRIER BELT CONVEYOR Coding Summary-Paper Based CODING DATE: 07/19/2016 FINAL [place] [facility] STATUS: * Discharged to Home [...] MARTÍNEZ Date Saved: 07/19/2016 06:33 am Source: [facility] [employer] Document Id: [id number] Miscellaneous - Lesli Sotomayor R.N. - 07/13/2016 7:58 PM CST Valuables/Belongings Valuables/Belongings Entered On: 07/13/2016 19:58 DRIER BELT CONVEYOR Performed On: 07/13/2016 19:58 DRIER BELT CONVEYOR by LESLI SOTOMAYOR RN Valuables/Jd Home Medication Disposition : None brought in with patient LESLI SOTOMAYOR RN - 07/13/2016 19:58 DRIER BELT CONVEYOR Source: [facility] [employer] Document Id: [id number] DRIER BELT CONVEYOR!3 R BELT CONVEYOR Miscellaneous - Lesli Sotomayor R.N. - 07/13/2016 7:03 PM CST Facility Charge Ticket 2.0 11.0 DX Facility Charge Ticket 2.0 11.0 DX Entered On: 07/13/2016 19:59 DRIER BELT CONVEYOR Performed On: 07/13/2016 19:03 DRIER BELT CONVEYOR by LESLI SOTOMAYOR RN Facility Charge Ticket [...] Control : 4 Lynx Visit Level : 09397 Level 2 Treatments Prior to Arrival : None LESLI SOTOMAYOR RN - 07/13/2016 19:58 DRIER BELT CONVEYOR Source: [facility] POWERCHART Document Id: [id number] DRIER BELT CONVEYOR!17 R BELT CONVEYOR documented in this encounter Plan of Treatment Not on filedocumented as of this encounter Visit Diagnoses Not on filedocumented in this encounter Additional Health Concerns Assessment Noted Time PHQ-9 Depression Total Score: 18 02/14/2013 9:53 AM CD T documented as of this encounter
--- OUTSIDE RECORDS SUMMARY | 2022-08-05 10:17 | XMS_ITS | Encounter Summary ---
:1960 Author Organization [facility] Address [address] [place] [address] Care Team Providers Name Role Phone Unavailable Primary Care Provider Unavailable Encounter Details Date Type Department Care Team Description 08/01/2016 Hospital Encounter HX [facility] Cintia Bullock M.D. [address] [place] [phone] (Wo rk) Social History Tobacco Use [...] 182 cm (5' 11.65) 08/01/2016 1:56 PM MALT HOUSE KILN OPERATOR Body Mass Index - - documented [...] Cintia Bullock M.D. - 08/01/2016 3:51 PM MALT HOUSE KILN OPERATOR Results Notification Document Contains Addenda Addendum by TIFFANY DEAN LPN on August 04, 2016 12:34:40 MALT HOUSE KILN OPERATOR From: TIFFANY DEAN LPN ([facility]) To: CINTIA BULLOCK MD; Cc: CINTIA BULLOCK MD; Sent: 08/04/2016 12:34:40 MALT HOUSE KILN OPERATOR Show up: 08/04/2016 12:34:00 MALT HOUSE KILN OPERATOR Subject: RE: Results Notification Addendum by TIFFANY DEAN LPN on August 04, 2016 12:34:26 MALT HOUSE KILN OPERATOR From: TIFFANY DEAN LPN ([facility] Nurse Guajardo) To: CINTIA BULLOCK MD; Cc: CINTIA BULLOCK MD; Sent: 08/04/2016 12:34:26 MALT HOUSE KILN OPERATOR Show up: 08/04/2016 12:34:00 MALT HOUSE KILN OPERATOR Subject: RE: Results Notification Addendum by TIFFANY DEAN LPN on August 04, 2016 12:34:26 MALT HOUSE KILN OPERATOR From: TIFFANY DEAN LPN ([facility] Nurse Guajardo) To: CINTIA BULLOCK MD; Cc: CINTIA BULLOCK MD; Sent: 08/04/2016 12:34:26 MALT HOUSE KILN OPERATOR Show up: 08/04/2016 12:34:00 MALT HOUSE KILN OPERATOR Subject: RE: Results Notification Addendum by TIFFANY DEAN LPN on August 04, 2016 12:34:[address] Song, Spoke with pt.He is taking [...] RAMIREZ LPN on August 04, 2016 12:00:00 MALT HOUSE KILN OPERATOR Tried calling pt at all the numbers listed on overview and the one listed with this encounter. No answer. I was able to leave a voice message on one of them and asked to call back for message. From: CINITA BULLOCK MD To: [facility] Humidifier Attendant/Referrals; [facility]; Sent: 08/01/2016 15:51:12 MALT HOUSE KILN OPERATOR Show up: 08/01/2016 15:49:00 MALT HOUSE KILN OPERATOR Subject: Results Notification LM for patient to [...] Lvl 9.9 mg/dL (8.6 - 10.0) Source: [facility] POWERCHART Document Id: [id number] documented in this encounter Plan of Treatment Not on filedocumented as of this encounter Procedures Procedure Name Priority Date/Time Associated Diagnosis Comme nts BASIC METABOLIC Routine 08/01/2016 2:02 PM Result s for this PANEL, S/P MALT HOUSE KILN OPERATOR procedure are i n the results section. documented in this encounter Results (ABNORMAL) BMP (Basic Metabolic Panel) (08/01/2016 2:02 PM MALT HOUSE KILN OPERATOR) Analysis Performed At Patho logist Time Signature [...] MMOLL HXeGFR (MDRD) 44 (L) >=60 POWERCHART [id number] eGFR 53 (L) >=60 POWERCHART Black/ [id number] Sudanese Glucose 124 70 - 139 POWERCHART MGDL Specimen (Source) Anatomical Collection Method Collection Time Re ceived Time Location / / Volume Laterality Blood 08/01/2016 2:02 PM MALT HOUSE KILN OPERATOR Cintia Copeland M.D. LAB BLOOD ADD-ON Performing Organization Address City/State/ZIP Code Phon e Number POWERCHART documented in this encounter Visit Diagnoses Not on filedocumented in this encounter Additional Health Concerns Assessment Noted Time PHQ-9 Depression Total Score: 18 02/14/2013 9:53 AM CD T documented as of this encounter
--- OUTSIDE RECORDS SUMMARY | 2022-08-05 10:17 | XMS_ITS | Encounter Summary ---
:1960 Author Organization [facility] Address [address] [place] [address] Care Team Providers Name Role Phone Unavailable Primary Care Provider Unavailable Encounter Details Date Type Department Care Team Description 01/05/2017 Hospital Encounter HX [facility] Angeline LECHUGA Cha, ei, M.D. [address] [place], [place] [phone] (Wo rk) Social History Tobacco Use Types [...] Summary-Paper Based CODING DATE: 01/09/[address] [facility] STATUS: * Discharged to Home or [...] HICKMAN Date Saved: 01/09/2017 04:56 pm Source: Archiver's Document Id: [id number] documented in this encounter Plan of Treatment [...] / Volume Laterality 01/05/2017 4:51 PM CDT [facility] SYSTEM - 01/05/2017 4:51 PM CDT [...] Phon e Number [facility] [address] [place] [phone] documented in this encounter Visit Diagnoses Not on filedocumented in this encounter Additional Health Concerns Assessment Noted Time PHQ-9 Depression Total Score: 18 02/14/2013 9:53 AM CD T documented as of this encounter
--- OUTSIDE RECORDS SUMMARY | 2022-08-05 10:17 | XMS_ITS | Encounter Summary ---
:1960 Author Organization [facility] Address [address] [place] [address] Care Team Providers Name Role Phone Kevin Bullock M.D. Primary Care Provider [phone] Encounter Details Date Type Department Care Team Description 03/17/2017 Hospital Encounter HX [facility] Kevin Aguirre M.D. [address] [place] [phone] (Wo rk) Social History Tobacco Use Types [...] FEC OV Est Pt Level 4 - 76611 - 25 min Vitamin B12 and Folate Level*-Chairez 9156 2. Paresthesia NOS I am concerned about vitamin B12 deficiency although patient does note he typically takes his injections and also is taking a vitamin. Diabetic neuropathy is also possible but his A1c looks really good at this time. Ordered: OV Est Pt Level 4 - 34229 - 25 min 3. Pacemaker Cardiac S/P We remove some remaining suture fragments which will allow the corner of the pacemaker incision to heal. Heart rate is regular today. Ordered: OV Est Pt Level 4 - 98499 - 25 min 4. DM2 A1c is at goal. Lipid panel is also acceptable. Patient is not currently on any medications. Ordered: Ferritin-Chairez 8689 Iron and Total Fe Binding Capacity*-Chairez FEC OV Est Pt Level 4 - 53557 - 25 min Vitamin B12 and Folate Level*-Chairez 9156 5. Surgery Bariatric S/P Vitamin B12 and iron studies pending. Ordered: Ferritin-Chairez 8689 Iron and Total Fe Binding Capacity*-Chairez FEC OV Est Pt Level 4 - 65784 - 25 min Vitamin B12 and Folate Level*-Chairez 9156 6. Hypertension HTN NOS Blood pressure is acceptable. Continue current medications. BMP within normal limits. Ordered: OV Est Pt Level 4 - 21488 - 25 min Electronically Signed By: KEVIN BULLOCK MD On: 03/18/2017 07:02 AM Source: [facility] POWERCHART Document Id: [id number] documented in this encounter Miscellaneous Notes Miscellaneous [...] Message Addendum to earlier message from today, [id number] Patient forgot to mention, since they put in the pacemaker he is bruising very easily. Not on blood thinner meds. PCP: Kevin Whyte, requesting follow up call, may be difficult to reach. Source: [facility] POWERCHART Document Id: [id number] Telephone Encounter - Conversion, Historical Provider Ser - 05/04/2017 10:46 AM CDT *Phone Message Document Contains Addenda Addendum by ANGEL NGUYEN on May 06, 2017 06:42:10 CDT Copy of this message mailed to client and will continue to attempt to reach him by phone. Addendum by KEVIN BULLOCK MD on May 05, 2017 20:06:01 CDT From: KEVIN BULLOCK MD To: [facility]; Sent: 05/05/2017 20:06:01 [...] 2017 11:18:28 CDT From: HARVEY REDDY LPN ([facility]) To: KEVIN BULLOCK MD; Sent: 05/04/2017 11:18:28 CDT Subject: FW: *Phone Message Forwarded to PCP to review From: MARY FELDER ([facility] Music Mixer) To: [facility]; Sent: 05/04/2017 10:46:09 [...] like to have a return call to [phone]. If he is unable to answer please call the home # [phone]. Advice/Action: Source used: ( ) Verbalizes understanding [...] back cell phone number ( ) Source: [facility] CONSTRVCTCHART Document Id: [id number] Miscellaneous - Kevin Bullock M.D. - 03/20/2017 3:19 PM CDT Normal Results Letter March 20, 2017 NOEMÍ LUNA [address] [facility] [id number] Dear NOEMÍ LUNA, Please review your test [...] an e-mail account, join the other 900,000 [facility] patients who use the Patient Online Services to conveniently access their lab results by calling [phone] to sign up for an account. It [...] (mL/min/1.73m2) >60 03/17/2017 >60 01/05/2017 >=60 - [id number] (MDRD) (mL/min/1.73m2) >60 03/17/2017 >60 01/05/2017 >=60 [...] Total (mg/dL) 0.3 03/17/2017 0.1 - 1.0 Iron-[place] (mcg/dL) (L) 48 03/17/2017 50 - 150 - TIBC-[place] (mcg/dL) 319 03/17/2017 250 - 400 - Iron Sat-[place] (%) 15 03/17/2017 14 - 50 - [...] >1400 03/17/2017 180 - 914 - Folate Lvl-[place] (mcg/L) >20.0 03/17/2017 >=4.0 - Hgb (g/dL) [...] 01/05/2017 150 - 450 Sincerely, KEVIN VALENTIN [address] [place] [id number] Electronic Signature Electronically Signed By: KEVIN BULLOCK MD On: March 20, 2017 This document has images extracted. Source: [facility] POWERCHART Document Id: [id number] Electronically signed by Conversion, [facility] Consulting Solution Director [id number] at 03/21/2017 7:00 AM CDT Miscellaneous - Kevin Bullock M.D. - 03/17/2017 7:23 PM CDT Ambulatory Patient Summary [address] [place] [id number] Visit Information Name: CARLYLE NOEMÍ Jim [facility] Number: [id number] Current Date: 03/17/2017 19:23:08 Physicians [...] if you dont have one. Go to [email or web address] and click on Create Your Account. Then, follow the directions to complete the online form. Youll be asked for your [facility] number which you can find at the top of this document. Your Goals/Additional instructions: Source: [facility] POWERCHART Document Id: [id number] Miscellaneous - Kevin Bullock M.D. - 03/17/2017 7:23 PM CDT Ambulatory Discharge Medication List [address] [place], [place] [phone] Visit Information Name: NOEMÍ LUNA [facility] Number: [id number] Current Date: 03/17/2017 19:23:04 Attending [...] MD Signed On:17-MAR-2017 19:22:54 Additional Information: Source: [facility] POWERCHART Document Id: [id number] Miscellaneous - Alvina Langston L.P.N. - 03/17/2017 6:34 PM CDT Adult Product Specialist Intake/History Adult Product Specialist Intake/History Entered On: 03/17/2017 18:39 CDT Performed On: 03/17/2017 18:34 CDT by ALVINA LANGSTON [facility] Intake Chief Complaint : Not feeling [...] Preferred Communication Mode : Verbal Languages : Spanish Is Patient Female and 13-50 no hysterectomy : No ALVINA LANGSTON LPN - 03/17/2017 18:34 CDT Subjective Pain Symptoms : Yes ALVINA LANGSTON [facility] - 03/17/2017 18:34 CDT Pain Scale Pain Scale Verbal 0-10 : Open ALVINA LANGSTON [facility] 03/17/2017 18:34 CDT Pain Pain Assessment Grid Pain 1 Pain 2 Location : Head Lower leg Laterality : Bilateral ALVINA LANGSTON [facility] - 03/17/2017 18:34 CDT ALVINA LANGSTON LPN - 03/17/2017 18:34 CDT Dependent Habits Exposure to Tobacco Smoke : Care provider denies smoking in home, Other: never Smoking Status : Never smoker Tobacco 2A : No Tobacco Use/Currently Using : No Tobacco Use/Last 30 Days : No Tobacco Use/Last 12 months : No Alcohol Use : No ALVINA LANGSTON CIVIL ENGINEERING PROJECT MANAGER - 03/17/2017 18:34 CDT Caffeine Use Grid Caffeine Use : Current Type : Coffee, Soft drinks Frequency : Weekly Amount : soda- weekly; coffee- 1x/week ALVINA LANGSTON LPN - 03/17/2017 18:34 CDT Recreational Drug Use Grid Drug Use : None ALVINA LANGSTON LPN 03/17/2017 18:34 CDT Source: [employer] POWERCHART Document Id: [id number]!48 documented in this encounter Plan of [...] Erythrocytes 2.92 (L) 4.32 - POWERCHART 5.72 [id number] Hemoglobin 9.8 (L) 13.5 - POWERCHART 17.5 [...] 50 POWERCHART Saturation Comment: Test Performed by: [facility] [address] [place] [address] Specimen (Source) Anatomical Collection Method Collection Time Re ceived Time Location / / Volume Laterality Blood 03/17/2017 7:30 PM CDT Kevin Valentin M.D. LAB BLOOD ADD-ON Performing Organization Address City/[facility] Phon e Number POWERCHART POWERCHART NA Ferritin (03/17/2017 7:30 PM CDT) athologist Signature Ferritin, S 47 24 - 336 POWERCHART MCGL Comment: Test Performed by: [address] [address] Specimen (Source) Anatomical Collection Method Collection Time Re ceived Time Location / / Volume Laterality Blood 03/17/2017 7:30 PM CDT Kevin Valentin M.D. LAB BLOOD ADD-ON Performing Organization Address City/[facility]/ZIP Code Phon e Number POWERCHART POWERCHART NA (ABNORMAL) Vitamin B12 and Folate (03/17/2017 7:30 PM CDT) athologist Signature Folate, S >20.0 >=4.0 MCGL POWERCHART Comment: Test Performed by: [facility] [address] [place] [address] Vitamin B12 Assay, S >1400 (H) 180 - 914 NGL POWER CHART Specimen (Source) Anatomical Collection Method Collection Time Re ceived Time Location / / Volume Laterality Blood 03/17/2017 7:30 PM CDT Kevin Valentin M.D. LAB BLOOD NON ADD-ON Performing Organization Address City/[facility]/ZIP Code Phon e Number POWERCHART POWERCHART NA [...] esting for FH and FDB is available [facility]: FH/ADH Genetic Reflex Luu el (test ADHP). Acquired (non-genetic) causes of markedly increased LDL cholesterol include cholestatic liver disease due to the presence of LpX. If a genetic form of hypercholesterolemia is suspected, family studies including biochemical testing fo r lipids (total cholesterol,triglycerides, LDL cholesterol and HDL cholesterol) are recommended. ??Please contact the laboratory at or the on-line test catalog at [email or web address] for information about how to order these [...] POWERCHART MMOLL HXeGFR (MDRD) >60 >=60 POWERCHART [id number] 2 eGFR Black/ >60 >=60 POWERCHART Latvian [id number] 2 Bilirubin, Total, S 0.3 0.1 - [...] documented as of this encounter Care Teams Race Car Driver Relationship Specialty Start Date End Date Kevin Bullock M.D. PCP - General 02/19/17 02/20/[id number] [phone] documented as of this encounter
--- OUTSIDE RECORDS SUMMARY | 2022-08-05 10:17 | XMS_ITS | Encounter Summary ---
:1960 Author Organization [facility] Address [address] [place] [address] Care Team Providers Name Role Phone Unavailable Primary Care Provider Unavailable Encounter Details Date Type Department Care Team Description 09/30/2016 [facility] Kevin lindquist M.D. [address] [place] [phone] (Wo rk) Social History Tobacco Use Types Packs/Day Years Used Date Smoking Tobacco: Never Sex Assigned at Date Recorded Not on file documented as of this encounter Last Filed Vital Signs Vital Sign Reading Time Taken Comments Blood Pressure 150/66 09/30/2016 6:32 PM STOGY MAKER Pulse 40 09/30/2016 6:32 PM STOGY MAKER Temperature - - Respiratory Rate - - Oxygen Saturation - - Inhaled Oxygen Concentration - - Weight 86.4 kg (190 lb 7.6 oz) 09/30/2016 6:32 PM STOGY MAKER Height 182.9 cm (6') 09/30/2016 6:32 PM STOGY MAKER Body Mass Index 25.83 09/30/2016 6:32 PM STOGY MAKER documented in this encounter Medications at Time [...] undergoing a panniculectomy on December 10 in [place]. He reports that with his last procedure, [...] No tobacco or alcohol. 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 SOCIAL HISTORY Date Time: 09/30/2016 18:32 [...] ECG; TITI WATTS MD, PhD 09/30/2016 19:25 STOGY MAKER Electronically Signed By: KEVIN BULLOCK MD On: 10/05/2016 07:04 AM Source: [employer] Document Id: [id number] Y MAKER documented in this encounter Miscellaneous Notes Telephone [...] 14:36:01 CDT From: KEVIN BULLOCK MD To: [place] [facility] Nurse Guajardo; Sent: 02/11/2017 14:36:01 [...] 11, 2017 08:28:01 CDT From: ANGEL NGUYEN ([place] [facility] Nurse Guajardo) To: KEVIN BULLOCK MD; Sent: 02/11/2017 08:28:01 CDT Subject: FW: *Phone Message This pretty much says it all, do you want me to call him? I'm assuming that your response will be he needs an appointment to discuss which will be out several weeks at best..... From: KRISTA PAPPAS ([place] Family Medicine Service Order Dispatcher Chief) To: [place] [facility] Nurse Guajardo; Sent: 02/11/2017 00:30:28 [...] missed the appointment. Please call him at [phone]. Advice/Action: Source used: ( ) Verbalizes understanding [...] back cell phone number ( ) Source: [facility] POWERCHART Document Id: [id number] Telephone Encounter - Conversion, Historical Provider Ser - 10/04/2016 9:19 AM CST *Phone Message Document Contains Addenda Addendum by KEVIN BULLOCK MD on October 06, 2016 09:35:19 STOGY MAKER From: KEVIN BULLOCK MD To: KEVIN BULLOCK MD; Sent: 10/06/2016 09:35:19 STOGY MAKER Subject: RE: *Phone Message Attempted to call patient to discuss cardiology recommendations. Addendum by VINEET RAMIREZ LPN on October 04, 2016 12:32:38 STOGY MAKER From: VINEET RAMIREZ LPN ([place] [facility] Nurse Guajardo) To: KEVIN BULLOCK MD; Sent: 10/04/2016 12:32:38 STOGY MAKER Subject: FW: *Phone Message From: MARY FELDERTN Family Medicine Service Order Dispatcher Chief) To: [place] Family Medicine Nurse Guajardo; Sent: 10/04/2016 09:19:28 STOGY MAKER Subject: *Phone Message Caller is: ( X [...] number ( ) Source: [facility] Document Id: [id number] Osbaldo - Angel Nguyen L.P.N. - 10/01/2016 7:38 AM CST Px Follow up questions From: ANGEL NGUYEN ([place] [facility] Nurse Bennett) To: KEVIN BULLOCK MD; Sent: 10/01/2016 07:38:27 STOGY MAKER Subject: Px Follow up questions Client called [...] avoid stretching out his gastric pouch. Source: [facility] Document Id: [id number] Electronically signed by Conversion, [facility] Metal Precision Machine Assembler [id number] at 02/17/2017 3:23 AM CDT Osbaldo - Kevin Bullock M.D. - 09/30/2016 7:32 PM STOGY MAKER Ambulatory Patient Summary [address] [place] [id number] Visit Information Name: NOEMÍ LUNA [facility] Number: [id number] Current Date: 09/30/2016 19:32:28 Physicians [...] once a day kidney stones Routed to [facility] , cyanocobalamin (cyanocobalamin 1000 mcg/mL injectable solution) 1 Milliliter, Subcutaneous, once a month vitamin B12 deficiency Routed to [facility] , *ferrous sulfate (ferrous sulfate 325 mg (65 mg elemental iron) oral tablet) 1 Tablet(s), Oral, two times a day furosemide (Lasix 40 mg oral tablet) 1 Tablet(s), Oral, once a day as needed for edema Leg Swelling This is a CHANGE Routed to [facility] , lisinopril (lisinopril 10 mg oral tablet) 1 Tablet(s), Oral, once a day blood pressure Routed to [facility] , *multivitamin with minerals (Flintstones Complete [...] if you dont have one. Go to [email or web address] and click on Create Your Account. Then, follow the directions to complete the online form. Youll be asked for your [facility] number which you can find at the top of this document. Your Goals/Additional instructions: Source: [facility] POWERCHART Document Id: [id number] Y MAKER Miscellaneous - Kevin Bullock M.D. - 09/30/2016 7:32 PM STOGY MAKER Ambulatory Discharge Medication List [place] - [address] [place] [id number] Visit Information Name: NOEMÍ LUNA [facility] Number: [id number] Current Date: 09/30/2016 19:32:25 Attending [...] once a day kidney stones Routed to [facility] , cyanocobalamin (cyanocobalamin 1000 mcg/mL injectable solution) 1 Milliliter, Subcutaneous, once a month vitamin B12 deficiency Routed to [facility] , *ferrous sulfate (ferrous sulfate 325 mg (65 mg elemental iron) oral tablet) 1 Tablet(s), Oral, two times a day furosemide (Lasix 40 mg oral tablet) 1 Tablet(s), Oral, once a day as needed for edema Leg Swelling This is a CHANGE Routed to [facility] , lisinopril (lisinopril 10 mg oral tablet) 1 Tablet(s), Oral, once a day blood pressure Routed to [facility] , *multivitamin with minerals (Flintstones Complete [...] MD Signed On:30-SEP-2016 19:32:14 Additional Information: Source: [facility] POWERCHART Document Id: [id number] Y MAKER Miscellaneous - Angel Nguyen L.P.N. - 09/30/2016 7:17 PM CST Obstructive Sleep Apnea Obstructive Sleep Apnea Entered On: 09/30/2016 19:18 STOGY MAKER Performed On: 09/30/2016 19:17 STOGY MAKER by ANGEL NGUYEN CELESTE Screening Known Obstructive Sleep Apnea : No - NOT diagnosed with CELESTE CELESTE Score : No qualifying data available. CELESTE Results : No qualifying data available. ANGEL NGUYEN - 09/30/2016 19:17 STOGY MAKER CELESTE Assessment Do you have high blood [...] : 8 ANGEL NGUYEN - 09/30/2016 19:17 STOGY MAKER Source: [facility] POWERCHART Document Id: [id number] STOGY MAKER!12 Y MAKER Miscellaneous - Angel Nguyen, L.P.N. - 09/30/2016 6:32 PM CST Adult Tea Tree Farmer Intake/History Document Has Been Updated Adult Tea Tree Farmer Intake/History Entered On: 09/30/2016 18:40 STOGY MAKER Performed On: 09/30/2016 18:32 STOGY MAKER by ANGEL NGUYEN Intake Actual Weight : 86.4 kg(Converted to: 190 lb 8 oz) Weight Source : Standing scale Dosing Weight Clinic : 86.4 kg ANGEL NGUYEN - 09/30/2016 19:16 STOGY MAKER Clinic BSA : 2.1 Body Mass Index : 25.83 kg/m2 ANGEL NGUYEN - 10/01/2016 7:38 STOGY MAKER Chief Complaint : Here for preop exam. [...] Room air ANGEL NGUYEN - 09/30/2016 18:32 STOGY MAKER Height : 182.88 cm(Converted to: 6 ft 0 inch(es), 72 inch(es)) ANGEL NGUYEN - 10/01/2016 7:38 STOGY MAKER General Info Information Given By : Patient Languages : Kazakh Is Patient Female and 13-50 no hysterectomy : No ANGEL NGUYEN 09/30/2016 18:32 STOGY MAKER Subjective Pain Symptoms : ANGEL Torres 09/30/2016 18:32 STOGY MAKER Dependent Habits Exposure to Tobacco Smoke : Care provider denies smoking in home, Other: never Smoking Status : Never smoker Tobacco 2A : No Tobacco Use/Currently Using : No Tobacco Use/Last 30 Days : No Tobacco Use/Last 12 months : No Alcohol Use : No ANGEL NGUYEN 09/30/2016 18:32 STOGY MAKER Caffeine Use Grid Caffeine Use : Current Type : Coffee, Soft drinks Frequency : Weekly Amount : soda- weekly; coffee- 1x/week ANGEL NGUYEN 09/30/2016 18:32 STOGY MAKER Recreational Drug Use Grid Drug Use : None ANGEL NGUYEN 09/30/2016 18:32 STOGY MAKER Source: [facility] POWERCHART Document Id: [id number] STOGY MAKER!5 Y MAKER Miscellaneous - Sorin Wagner RAugustine - 09/02/2016 8:27 AM CST FYI; Fired from pharmacy From: SORIN WAGENR RN To: KEVIN BULLOCK MD; Sent: 09/02/2016 08:27:21 STOGY MAKER Subject: COLIN; Fired from pharmacy [facility] called and states that patient is no longer able to get his medications through their pharmacy. Patient has been notified. Source: [facility] POWERCHART Document Id: [id number] Electronically signed by Conversion, [facility] Metal Precision Machine Assembler [id number] at 02/17/2017 3:23 AM CDT documented in this encounter Plan of Treatment Not on filedocumented as of this encounter Procedures Procedure Name Priority Date/Time Associated Comments Diagnosis CBC WITHOUT Routine 09/30/2016 7:35 PM Results f or this DIFFERENTIAL, B STOGY MAKER procedure ar e in the results section. HEMOGLOBIN A1C, B Routine 09/30/2016 7:35 PM Resu lts for this STOGY MAKER procedure are i n the results section. BASIC METABOLIC Routine 09/30/2016 7:35 PM Result s for this PANEL, S/P STOGY MAKER procedure are i n the results section. ECG Routine 09/30/2016 7:25 PM Results f or this STOGY MAKER procedure are i n the results section. documented in this encounter Results (ABNORMAL) CBC without Differential (09/30/2016 7:35 PM STOGY MAKER) Analysis Performed At Patho logist Time Signature Leukocytes 7.7 3.5 - 10.5 POWERCHART X109L Erythrocytes 3.93 (L) 4.32 - POWERCHART 5.72 T0008N Hemoglobin 12.5 (L) 13.5 - POWERCHART 17.5 GDL Hematocrit 36.8 (L) 38.8 - POWERCHART 50.0 MCV 93.6 81.2 - POWERCHART 95.1 FL HX RDW 13.1 11.8 - POWERCHART 15.6 Platelet Count 153 150 - 450 POWERCHART X109L Specimen (Source) Anatomical Collection Method Collection Time Re ceived Time Location / / Volume Laterality Blood 09/30/2016 7:35 PM STOGY MAKER Kevin Copeland M.D. LAB BLOOD ADD-ON Performing Organization Address City/State/ZIP Code Phon e Number POWERCHART BMP (Basic Metabolic Panel) (09/30/2016 7:35 PM STOGY MAKER) P athologist Signature Sodium, S 138 135 [...] POWERCHART MMOLL HXeGFR (MDRD) >60 >=60 POWERCHART [id number] eGFR >60 >=60 POWERCHART Black/ [id number] Brazilian Glucose 117 70 - 139 POWERCHART MGDL Specimen (Source) Anatomical Collection Method Collection Time Re ceived Time Location / / Volume Laterality Blood 09/30/2016 7:35 PM STOGY MAKER Kevin Copeland M.D. LAB BLOOD ADD-ON Performing Organization Address City/State/ZIP Code Phon e Number POWERCHART Hemoglobin A1c (09/30/2016 7:35 PM STOGY MAKER) P athologist Signature Hemoglobin A1c, 5.1 <=5.6 A1C POWERCHART B Specimen (Source) Anatomical Collection Method Collection Time Re ceived Time Location / / Volume Laterality Blood 09/30/2016 7:35 PM STOGY MAKER Kevin Copeland M.D. LAB BLOOD ADD-ON Performing Organization Address City/State/ZIP Code Phon e Number POWERCHART ECG 12 Lead (09/30/2016 7:25 PM STOGY MAKER) Specimen (Source) Anatomical Collection Method Collection Time Re ceived Time Location / / Volume Laterality 09/30/2016 7:25 PM STOGY MAKER [facility] - 09/30/2016 7:25 PM STOGY MAKER Test Reason : PREOP Blood Pressure : [...] Organization Address City/State/ZIP Code Phon e Number [facility] [address] [place] [phone] documented in this encounter Visit Diagnoses Not on filedocumented in this encounter Additional Health Concerns Assessment Noted Time PHQ-9 Depression Total Score: 18 02/14/2013 9:53 AM CD T documented as of this encounter
--- OUTSIDE RECORDS SUMMARY | 2022-08-05 10:17 | XMS_ITS | Encounter Summary ---
:1960 Author Organization [facility] Address [address] [place] [address] Care Team Providers Name Role Phone Unavailable Primary Care Provider Unavailable Encounter Details Date Type Department Care Team Description 09/18/2015 Hospital Encounter HX [facility] [place] Kevin Aguirre M.D. [address] [place] [phone] (Wo rk) Social History Tobacco Use Types Packs/Day Years Used Date Smoking Tobacco: Never Assessed Sex Assigned at Date Recorded Not on file documented as of this encounter Last Filed Vital Signs Vital Sign Reading Time Taken Comments Blood Pressure 139/69 09/18/2015 6:28 PM DISCHARGE RN Pulse 40 09/18/2015 6:28 PM DISCHARGE RN Temperature - - Respiratory Rate 16 09/18/2015 6:28 PM DISCHARGE RN Oxygen Saturation - - Inhaled Oxygen Concentration - - Weight 87.2 kg (192 lb 3.9 oz) 09/18/2015 6:28 PM DISCHARGE RN Height 180 cm (5' 10.87) 09/18/2015 6:28 PM DISCHARGE RN Body Mass Index 26.91 09/18/2015 6:28 PM DISCHARGE RN documented in this encounter Medications at Time [...] Ordered: OV Est Pt Level 4 - 63627 - 25 min 2. Hypertension HTN NOS Blood pressure is acceptable today. Patient is currently on amlodipine and metoprolol. He may benefit from being on an CARMITA inhibitor in the future. Previously his creatinine had been elevated so this was stopped. Ordered: OV Est Pt Level 4 - 44988 - 25 min 3. Hyperlipidemia NOS Lipid panel is at goal. Continue simvastatin. Ordered: OV Est Pt Level 4 - 51198 - 25 min 4. Flutter Atrial NOS Patient continues to be bradycardic. He is also on a small dose of metoprolol. He is asymptomatic. Ordered: OV Est Pt Level 4 - 58572 - 25 min 5. Impotence Organic I advised patient to not take more Cialis than was prescribed. We again discussed other potential options to treat erectile dysfunction including injectable medications or implantable prostheses. Ordered: OV Est Pt Level 4 - 70083 - 25 min 6. Lump Skin Patient is going to return for an ultrasound to further assess this lump. 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 I confirmed this again. The human relations professor recommended doing more testing which I think [...] now. Thanks, Kevin From: VINEET RAMIREZ LPN ([place] Family Medicine Nurse [place]) To: KEVIN BULLOCK MD; Sent: 11/17/2016 18:33:53 CDT Subject: *General Message pt lvm that he went to [facility] to discuss having surgery today and they turned him down. He said he was angry and went down stairs to talk to some really powerful people within [facility] pt services andthey told him that the [...] his time. Please call him back at [phone] and keep trying till he actually picks up as he won't answer numbers he doesn't recognise. If we call several times then he will figure out it is you trying to call. Also Preethi silk folder listened to message to confirm the information he was leaving. Source: [facility] POWERCHART Document Id: [id number] Electronically signed by Dayami, [facility] Chef Kitchen Manager [id number] at 01/31/2017 10:58 AM CDT Telephone Encounter - Conversion, Historical Provider Ser - 04/14/2016 10:20 AM CDT *Phone Message Document Contains Addenda Addendum by HARVEY REDDY LPN on April 15, 2016 13:17:09 CDT noted Addendum by KEVIN KILGORE MD on April 15, 2016 12:42:30 CDT From: KEVIN KILGORE MD To: [place] Family Medicine Nurse Guajardo; Sent: 04/15/2016 12:42:30 CDT Subject: RE: *Phone Message Lasix sent to [facility] until appt on 04/29. Kevin Segura Addendum by ANGEL NGUYEN on April 14, 2016 11:40:08 CDT From: ANGEL NGUYEN ([place] Family Medicine Nurse Guajardo) To: KEVIN KILGORE [...] is next , 04/29. From: TALYA KELSEY ([place] Family Medicine Library Serials Assistant) To: [place] Family Medicine Nurse Guajardo; Sent: 04/14/2016 10:20:45 [...] back cell phone number ( ) [facility] Document Id: [id number] Telephone Encounter - Conversion, Historical Provider Ser [...] the year for him. From: TALYA KELSEY ([place] Family Medicine Library Serials Assistant) To: [place] Family Medicine Nurse [place]; Sent: 03/14/2016 15:11:39 [...] of the medication. Please call pt at [phone] Advice/Action: Source used: ( ) Verbalizes understanding [...] back cell phone number ( ) Source: [facility] POWERCHART Document Id: [id number] Miscellaneous - Vineet Ramirez L.P.N. - 10/18/2015 10:06 AM CST *General Message Document Contains Addenda Addendum by ANGEL NGUYEN on 22 October 2015 12:39:20 DISCHARGE RN Below lasix info was relayed to patient. Addendum by VINEET ARMIREZ LPN on 22 October 2015 12:30:46 DISCHARGE RN Shirlene has information regarding pt. when he calls back. Addendum by ANGEL NGUYEN on 19 October 2015 15:08:45 DISCHARGE RN Left a message at his residence to please call us back. Addendum by KEVIN KILGORE MD on 19 October 2015 13:54:08 DISCHARGE RN From: KEVIN KILGORE MD To: [place] Family Medicine Nurse [place]; Sent: 10/19/2015 13:54:08 DISCHARGE RN Subject: RE: *General Message If his weight has increased by 2 pounds in 24 hours or 5 pounds in 1 week, he can take an extra doseof Lasix and see if that helps. If it continues to be an issue, we should see him back. Kevin Segura From: VINEET RAMIREZ LPN To: KEVIN KILGORE MD; Sent: 10/18/2015 10:06:06 DISCHARGE RN Subject: *General Message pt called and stated that he wt at home has [id number] and today 189.5. He kept saying his [...] today. He will be available then. Source: [facility] POWERCHART Document Id: [id number] Electronically signed by Conversion, [facility] Chef Kitchen Manager [id number] at 01/31/2017 10:58 AM CDT Miscellaneous - Kevin Bullock M.D. - 09/18/2015 7:10 PM DISCHARGE RN Ambulatory Patient Summary [address] [id number] Visit Information Name: NOEMÍ LUNA [facility] Number: [id number] Current Date: 09/18/2015 19:10:50 Physicians [...] if you dont have one. Go to [email or web address] and click on Create Your Account. Then, follow the directions to complete the online form. Youll be asked for your [facility] number which you can find at the top of this document. Your Goals/Additional instructions: Source: [facility] POWERCHART Document Id: [id number] HARGE RN Miscellaneous - Kevin Bullock M.D. - 09/18/2015 7:10 PM DISCHARGE RN Ambulatory Discharge Medication List [address] [id number] Visit Information Name: NOEMÍ LUNA [facility] Number: [id number] Visit Date: 09/18/2015 19:10:49 Attending [...] MD Signed On:18-SEP-2015 19:10:35 Additional Information: Source: [facility] POWERCHART Document Id: [id number] HARGE RN Miscellaneous - Anegl Nguyen LPiliPPiliN. - 09/18/2015 6:28 PM CST Adult Safety Council Director Intake/History Document Has Been Updated Adult Safety Council Director Intake/History Entered On: 09/18/2015 18:35 DISCHARGE RN Performed On: 09/18/2015 18:28 DISCHARGE RN by ANGEL NGUYEN Intake Chief Complaint : Client states he's due for follow up. Discuss labs. Of note, client started Lasix again on his own, taking one tab daily but is taking AT NIGHT. Denies nocturia. ANGEL NGUYEN - 09/18/2015 18:28 DISCHARGE RN Ambulatory Intake Additional Information : Client here for follow - gastric bypass 11/21. Called in by us - states he had labs drawn on 09/15/15. Here to review. Left little finger numbness. ANGEL NGUYEN - 09/18/2015 18:36 DISCHARGE RN Temperature Core : 36.0 DegC(Converted to: 96.8 [...] 26.91 kg/m2 ANGEL NGUYEN - 09/18/2015 18:28 DISCHARGE RN General Info Information Given By : Patient Languages : Pashto Is Patient Female and 13-50 no hysterectomy : No ANGEL NGUYEN - 09/18/2015 18:28 DISCHARGE RN Subjective Pain Symptoms : No ANGEL NGUYEN - 09/18/2015 18:28 DISCHARGE RN Dependent Habits Exposure to Tobacco Smoke : Care provider denies smoking in home, Other: never Smoking Status : Never smoker Tobacco 2A : No Tobacco Use/Currently Using : No Tobacco Use/Last 30 Days : No Tobacco Use/Last 12 months : No ANGEL NGUYEN - 09/18/2015 18:28 DISCHARGE RN Alcohol Use : No ANGEL NGUYEN 09/18/2015 18:36 DISCHARGE RN ANGEL NGUYEN 09/18/2015 18:36 DISCHARGE RN Caffeine Use Grid Caffeine Use : Current Type : Coffee, Soft drinks Frequency : Weekly Amount : soda- weekly; coffee- 1x/week ANGEL NGUYEN [place] 09/18/2015 18:28 DISCHARGE RN Recreational Drug Use Grid Drug Use : None ANGEL NGUYEN [place] 09/18/2015 18:28 DISCHARGE RN Source: [facility] [employer] Document Id: [id number] DISCHARGE RN!5 HARGE RN Miscellaneous - Tiffany Dean L.P.N. - 09/10/2015 9:11 AM CST *General Message Document Contains Addenda Addendum by KEVIN KILGORE MD on 10 September 2015 10:45:50 DISCHARGE RN From: KEVIN KILGORE MD To: TIFFANY DEAN LPN; Sent: 09/10/2015 10:45:50 DISCHARGE RN Subject: RE: *General Message Thanks for the update. From: TIFFANY DEAN LPN To: KEVIN KILGORE MD; Sent: 09/10/2015 09:11:25 DISCHARGE RN Subject: *General Message Dr. Song, pt. called and shared he got a letter about his wt. gain. He shared he feels that hiswt. gain is due to water gain. He has been taking his water pills and has wt. loss in the am approx.4 lbs.He will be seeing you . Source: [facility] POWERCHART Document Id: [id number] Electronically signed by Conversion, [facility] Chef Kitchen Manager [id number] at 01/31/2017 10:58 AM CDT documented in this encounter Plan of Treatment Not on filedocumented as of this encounter Visit Diagnoses Not on filedocumented in this encounter Additional Health Concerns Assessment Noted Time PHQ-9 Depression Total Score: 18 02/14/2013 9:53 AM CD T documented as of this encounter
--- OUTSIDE RECORDS SUMMARY | 2022-08-05 10:17 | XMS_ITS | Encounter Summary ---
:1960 Author Organization [facility] Address [address] [place] [address] Care Team Providers Name Role Phone Unavailable Primary Care Provider Unavailable Encounter Details Date Type Department Care Team Description 01/19/2017 - Hospital Encounter HX RST [facility] 4B Jennifer Shaffer, 01/20/2017 M.D. [address] [place] [address] Social History Tobacco Use Types Packs/Day Years [...] Respiratory Rate 14 01/20/2017 11:00 Value from [facility] rtplus. AM CDT Oxygen Saturation - - Inhaled Oxygen - - Concentration Weight 86 kg (189 lb 9.5 01/19/2017 12:46 Vital sign result oz) PM CDT from [facility]. Height 183 cm (6' 0.05) 01/19/2017 12:46 Vital sign result PM CDT from [facility]. Body Mass Index 25.68 01/19/2017 12:46 PM [...] Signature Sodium, S 140 135 - 145 [facility] MMOL/L [facility] Potassium, S 4.4 3.6 - 5.2 [facility] MMOL/L [facility] Chloride, S 102 98 - 107 [facility] MMOL/L [facility] HX Bicarbonate, 25 22 - 29 [facility] P/S MMOL/L [facility] Creatinine 1.0 0.8 - 1.3 [facility] MG/DL [facility] eGFR >60 >60 [facility] Non-Black/Afric ML/MIN/BSA LABORATORIES - an [place] Citizen [facility] eGFR-Black/Afri >60 >60 [facility] can [place] Citizen ML/MIN/BSA LABORATORIES - [facility] BUN (Blood Urea 23 8 - 24 [facility] Nitrogen), S MG/DL [facility] Anion Gap 13 7 - 15 [facility] Glucose, S 95 70 - 140 [facility] MG/DL [facility] - [facility] Specimen Anatomical Collection Method Collection Time Receive d Time (Source) Location / / Volume Laterality 01/20/2017 6:01 AM 7 6:01 CDT AM CDT Maricel Reyes APRN, C.N.P., M.S.N. LAB BLOOD ADD-ON Performing Organization Address City/[facility]/ZIP Code Phon e Number [facility] LABORATORIES - [address] [place], [place] [address] [facility] Magnesium (01/20/2017 6:01 AM CDT) P athologist Signature Magnesium, S 2.1 1.7 - 2.3 [facility] MG/DL [facility] Specimen Anatomical Collection Method Collection Time Receive d Time (Source) Location / / Volume Laterality 01/20/2017 6:01 AM 7 6:01 CDT AM CDT Maricel Reyes APRN, C.N.P., M.S.N. LAB BLOOD ADD-ON Performing Organization Address City/State/[facility] Code Phon e Number [facility] LABORATORIES - [address] [place] [address] [facility] (ABNORMAL) CBC without Differential (01/20/2017 6:01 AM CDT) Patholo gist Method Time Signature Hemoglobin 11.5 (L) 13.5 - [facility] 17.5 G/DL [facility] Hematocrit 34.0 (L) 38.8 - [facility] 50.0 % [facility] RBC Distrib 15.0 11.8 - [facility] Width 15.6 % [facility] Platelet Count 131 (L) 150 - 450 [facility] X10(9)/L [facility] Leukocytes 7.2 3.5 - [facility] 10.5 LABORATORIES - X10(9)/L [facility] Erythrocytes 3.52 (L) 4.32 - [facility] 5.72 LABORATORIES - X10(12)/L [facility] MCV 96.6 (H) 81.2 - [facility] 95.1 FL [facility] Specimen Anatomical Collection Method Collection Time Receive d Time (Source) Location / / Volume Laterality 01/20/2017 6:01 AM 7 6:01 CDT AM CDT Maricel Reyes APRN, C.N.P., M.S.N. LAB BLOOD ADD-ON Performing Organization Address City/[facility]/ZIP Code Phon e Number [facility] LABORATORIES - [address] [place], [place] [address] [facility] ECG 12 Lead (01/20/2017 5:46 AM CDT) Specimen (Source) Anatomical Collection Method Collection Time Re ceived Time Location / / Volume Laterality 01/20/2017 5:46 AM CDT Narrative HISTORICAL [facility] CONVERSION - 8:43 AM CDT [id number] 05:46 VENTRICULAR RATE 57 Dual chamber electronic pacemaker Sinus rhythm When compared with ECG of 05-JAN-2017 16 :51, Significant changes have occurred [id number]^CARLOS MENDEZ^SHUKRI Procedure Note Shukri Barroso M.D. - 11/26/2017Formatt ing of this note might be different from the original. [id number] 05:46 VENTRICULAR RATE 57 Dual chamber electronic pacemaker Sinus rhythm When compared with ECG of 05-JAN-2017 16 :51, Significant changes have occurred [id number]^CARLOS MENDEZ^SHUKRI Jennifer Shaffer M.D. ECG ORDERABLES Performing Organization Address City/[facility]/ZIP Code Phon e Number HX RAYMUNDO CONVERSION HISTORICAL [facility] CONVERSION (ABNORMAL) ACT (Activated Clotting Time), POCT (01/19/2017 2:30 PM CDT) [facility] Method Time Signature Activated 177 (H) 84 - 139 [facility] Clotting Time, SEC LABORATORIES - POCT [facility] Specimen Anatomical Collection Method Collection Time Receive d Time (Source) Location / / Volume Laterality 01/19/2017 2:30 PM 7 2:30 CDT PM CDT Historical Provider LAB POCT ORDERABLES - DEVICE Performing Organization Address City/[facility]/ZIP [facility] Phon e Number [facility]ATORIES - [address] [place], [place] [address] [facility] (ABNORMAL) ACT (Activated Clotting Time), POCT (01/19/2017 2:09 PM CDT) [facility] IdeaString Method Time Signature Activated 238 (H) 84 - 139 [facility] Clotting Time, SEC LABORATORIES - POCT [facility] Specimen Anatomical Collection Method Collection Time Receive d Time (Source) Location / / Volume Laterality 01/19/2017 2:09 PM 7 2:09 CDT PM CDT Historical Provider LAB POCT ORDERABLES - DEVICE Performing Organization Address City/[facility] Code Phon e Number [facility]IES - [address] [place] [address] [facility] (ABNORMAL) ACT (Activated Clotting Time), POCT (01/19/2017 12:48 PM CDT) [facility] gist Method Time Signature Activated 287 (H) 84 - 139 [facility] Clotting Time, SEC LABORATORIES - POCT [facility] Specimen Anatomical Collection Method Collection Time Receive d Time (Source) Location / / Volume Laterality 01/19/2017 12:48 01/19/2017 PM CDT 12:48 PM CDT Historical Provider LAB POCT ORDERABLES - DEVICE Performing Organization Address City/[facility] Code Phon e Number [facility]IES - [address] [place], [place] [address] [facility] documented in this encounter Visit Diagnoses Not on filedocumented in this encounter Additional Health Concerns Assessment Noted Time PHQ-9 Depression Total Score: 18 02/14/2013 9:53 AM CD T documented as of this encounter
--- OUTSIDE RECORDS SUMMARY | 2022-08-05 10:17 | XMS_ITS | Encounter Summary ---
:1960 Author Organization [facility] Address [address] [place] [address] Care Team Providers Name Role Phone Unavailable Primary Care Provider Unavailable Encounter Details Date Type Department Care Team Description 04/07/2016 Hospital Encounter HX [facility] Angélica Jolley M.D. [address] [place], [place] [phone] (Wo rk) Social History [...] Erythrocytes 3.53 (L) 4.32 - POWERCHART 5.72 [id number] Hemoglobin 11.4 (L) 13.5 - POWERCHART 17.5 [...] esting for FH and FDB [facility]: FH/ADH Genetic Reflex Luu el (test ADHP). Acquired (non-genetic) causes of markedly increased LDL cholesterol include cholestatic liver disease due to the presence of LpX. If a genetic form of hypercholesterolemia is suspected, family studies including biochemical testing fo r lipids (total cholesterol,triglycerides, LDL cholesterol and HDL cholesterol) are recommended. ??Please contact the laboratory at or the on-line test catalog at [facility] for information about how to order these [...] (04/07/2016 6:05 PM CDT) [facility] Time Signature Creatinine 1.55 (H) 0.60 - POWERCHART 1.30 MGDL HXeGFR (MDRD) 46 (L) >=60 POWERCHART [id number] eGFR 56 (L) >=60 POWERCHART Black/ [id number] Nepalese Specimen (Source) Anatomical Collection Method Collection Time Re ceived Time Location / / Volume Laterality Blood 04/07/2016 6:05 PM CDT Renetta Jolley M.D. LAB BLOOD ADD-ON Performing Organization Address City/[facility]/ZIP Code Phon e Number POWERCHART Ferritin (04/07/2016 6:05 PM CDT) athologist Signature Ferritin, S 102 24 - 336 POWERCHART [facility] Comment: Test Performed by: [facility] [place] [address] Manufacturing Assembler: Rene Gomez II, M.D., Ph.D. Specimen (Source) [...] M.D. LAB BLOOD ADD-ON Performing Organization Address City/[facility]/ZIP Code Phon e Number POWERCHART 25-Hydroxyvitamin [...] within this r vivienne. Test Performed by: [address] [address] Manufacturing Assembler: Rene Gomez II, M.D., Ph.D. Specimen (Source) [...]
--- OUTSIDE RECORDS SUMMARY | 2022-08-05 10:17 | XMS_ITS | Encounter Summary ---
:1960 Author Organization [facility] Address [address] [place] [address] Care Team Providers Name Role Phone Unavailable Primary Care Provider Unavailable Encounter Details Date Type Department Care Team Description 09/21/2015 Hospital Encounter [facility] Cintia lindquist M.D. [address] [place] [phone] (Wo rk) Social History Tobacco Use [...] 180 cm (5' 10.87) 09/21/2015 2:13 PM FRINGE KNOTTER Body Mass Index - - documented in [...] about appt but doesn't think he will [employer] compression stockings. Addendum by SHIRLENE ABBOTT RN on January 22, 2016 13:44:29 CDT Tried to call pt back to give below info - [phone] Addendum by CINTIA KILGORE MD on January [...] will call back to make appt. Source: [facility] POWERCHART Document Id: [id number] Electronically signed by Conversion, [facility] Platemaker [id number] at 01/31/2017 10:58 AM CDT Miscellaneous - [...] XOCHITL HACKETT on November 12, 2015 16:00:40 FRINGE KNOTTER No answer at home number - will try again tomorrow. Addendum by XOCHITL HACKETT on 05 November 2015 09:14:12 FRINGE KNOTTER Message left with client's to him return our call at his convenience. Addendum by XOCHITL HACKETT on 31 October 2015 08:44:50 FRINGE KNOTTER No answer at above number, will try again later. Addendum by CINTIA KILGORE MD on 30 October 2015 15:58:55 FRINGE KNOTTER From: CINTIA KILGORE MD To: XOCHITL HACKETT; Sent: 10/30/2015 15:58:55 FRINGE KNOTTER Subject: RE: *General Message He does take [...] To: CINTIA KILGORE MD; Sent: 10/30/2015 10:36:56 FRINGE KNOTTER Subject: *General Message Client left a voice [...] whenI spoke with you. Thanks, Nicki Source: [facility] [employer] Document Id: [id number] Electronically signed by Conversion, [facility] Platemaker [id number] at 01/31/2017 10:58 AM CDT Miscellaneous - Shirlene Abbott R.N. - 10/22/2015 12:24 PM CST diabetic supplies From: SHIRLENE ABBOTT RN Sent: 10/22/2015 12:24:17 FRINGE KNOTTER Subject: diabetic supplies Submitted: Order:Rx Lancets Supply MISC Once 100 count to use 2x/wk or as directed.Please include Lancing device. Accu chek, Jolie Plus IDDM 250.00 Qty: 1 box(es) Refills: 1 Substitutions Allowed Route To Pharmacy - [id number] Signed by SHIRLENE ABBOTT RN 10/22/2015 12:21:11 Submitted: Order:Rx Test Strips Supply MISC Once 50 count Accu check Jolie Plus Use 2x/week or as directed IDDMII E11.9 Qty: 50 each Refills: 2 Substitutions Allowed Route To Pharmacy - [facility][id number] Signed by SHIRLENE ABBOTT RN 10/22/2015 12:20:02 Insurance wants to cover different brand on equipment, sent scripts: Source: [facility] [employer] Document Id: [id number] Electronically signed by Conversion, [facility] Platemaker [id number] at 01/31/2017 10:58 AM CDT Miscellaneous - Conversion, Historical Provider Ser - 10/11/2015 12:00 AM FRINGE KNOTTER Quality Measures Quality Measures Entered On: 11/12/2015 11:53 FRINGE KNOTTER Performed On: 10/11/2015 0:00 FRINGE KNOTTER by NATHALIE BUTLER Diabetes Date of Last Eye Exam : 10/11/2015 FRINGE KNOTTER NATHALIE BUTLER - 11/12/2015 11:53 FRINGE KNOTTER Source: [facility] [employer] Document Id: [id number] FRINGE KNOTTER!3 Miscellaneous - Cintia Cobb M.D. - 09/26/2015 6:49 AM FRINGE KNOTTER Normal Results Letter 26 September 2015 ED CARLYLE [address] [facility] [phone] Dear LAZ LUNA, Please review the enclosed [...] Lower Extremity Left 09/21/2015 Sincerely, CINTIA KILGORE [id number] [address] Electronic Signature Electronically Signed By: CINTIA KILGORE MD On: 26 September 2015 This document has images extracted. Source: [facility] Document Id: [id number] Electronically signed by Conversion, [facility] Platemaker [id number] at 01/31/2017 10:58 AM CDT Miscellaneous - Conversion, Historical Provider Ser - 09/21/2015 11:59 PM FRINGE KNOTTER Coding Summary-Paper Based CODING DATE: 09/24/2015 FINAL [place] [facility] STATUS: * Discharged to Home [...] CABELLO Date Saved: 09/24/2015 02:59 pm Source: [facility] Document Id: [id number] documented in this encounter Plan of Treatment Not on filedocumented as of this encounter Visit Diagnoses Not on filedocumented in this encounter Additional Health Concerns Assessment Noted Time PHQ-9 Depression Total Score: 18 02/14/2013 9:53 AM CD T documented as of this encounter
--- OUTSIDE RECORDS SUMMARY | 2022-08-05 10:17 | XMS_ITS | Encounter Summary ---
:1960 Author Organization [facility] Address [address] [place] [address] Care Team Providers Name Role Phone Unavailable Primary Care Provider Unavailable Encounter Details Date Type Department Care Team Description 01/05/2017 Hospital Encounter HX [facility] Angeline ZABALA Cha, ei, M.D. [address] [place], [place] [phone] (Wo rk) Social History Tobacco Use Types [...] Summary-Paper Based CODING DATE: 01/09/2017 FINAL [place] [facility] STATUS: * Discharged to Home or [...] Date Saved: 01/09/2017 01:03 pm [facility] Document Id: [id number] documented in this encounter Plan of Treatment Not on filedocumented as of this encounter Visit Diagnoses Not on filedocumented in this encounter Additional Health Concerns Assessment Noted Time PHQ-9 Depression Total Score: 18 02/14/2013 9:53 AM CD T documented as of this encounter
--- OUTSIDE RECORDS SUMMARY | 2022-08-05 10:17 | XMS_ITS | Encounter Summary ---
:1960 Author Organization [facility] Address [address] [place] [address] Care Team Providers Name Role Phone Unavailable Primary Care Provider Unavailable Encounter Details Date Type Department Care Team Description 02/22/2016 Hospital Encounter HX [facility] ED Alexandra Barker M.D. [address] [place] [address] [phone] (Wo rk) Social History Tobacco Use [...] 02/22/2016 8:10 PM CDT ED Discharge Instructions [address] [address] Name: NOEMÍ LUNA Date of : 1960 12:00 AM Visit Date: 02/22/2016 6:18 PM [facility] Number: [id number] Address: [place] [address] [facility] [phone] Primary Care Provider: KEVIN KILGORE MD IMPORTANT: [facility] in [place] would like to thank you for allowing us to assist you with your healthcare needs. The following includes patient education materials and informationregarding your injury/illness. Diagnosis: Stomatitis NOS Follow-Up Instructions: With: Address: When: KEVIN KILGORE [address] [place] [phone] Business (1) Within As Needed Your Upcoming [...] 1/2 cup of warm water ?? An fmke-cfh-bmnzeqw anesthetic gargle Use Medication for More Relief Wjww-uof-aykmdbe medication can reduce sore throat symptoms. Ask [...] glands in the neck or jaw ?? [id number] Nadeem [facility], [address] [place] [address], [place] [address]. All rights reserved. This information is not [...] if you dont have one. Go to [email or web address] and click on Create Your Account. Then, follow the directions to complete the online form. Youll be asked for your [facility] number which you can find at the [...] nurse or physician. Patient Signature or Responsible Green Party/Relationship Date Time Provider Signature Date Time [...] nurse or physician. Patient Signature or Responsible Green Party/Relationship Date Time Provider Signature Date Time This document has images extracted. Please consider using [employer] for all your patient education needs. Source: [facility] POWERCHART Document Id: [id number] Nicyk Madrigal, R.NPili - 02/22/2016 8:10 PM CDT ED Depart Summary [facility] Emergency Department Clinical Discharge Summary PERSON INFORMATION Name NOEMÍ LUNA Age 55 Years 1960 12:00 AM Sex Male Language Welsh PCP KEVIN KILGORE MD Marital Status Visit Id Visit Reason Throat pain - Adult; Throat pain - Adult; Sore Throat Specialty Enc Type Emergency Med Service Emergency Medicine Referred by Track Group [facility] ED Discharge 02/22/2016 8:05 PM Tracking Id [id number] Checkout 02/22/2016 8:05 PM Checkin 02/22/2016 6:18 PM Acuity 4 -Less Urgent Dispo Type * Discharged to Home or Self Care Arrival 02/22/2016 6:18 PM Reg Status Complete LOS 000 01:47 Address: [address] [phone] Comment: PROVIDER INFORMATION Provider Role Provider Contact Time CIERRA BARKER MD ED Provider 02/22/16 18:27 NICKY MADRIGAL TIE INSPECTOR Nurse 02/22/16 18:37 DIAGNOSIS Stomatitis NOS Comment: PATIENT EDUCATION INFORMATION Instructions: Self-Care for Sore Throats Follow up: With: Address: When: KEVIN KILGORE [address] [place] [address] [phone] Business (0) Within As Needed Source: [facility] POWERCHART Document Id: [id number] documented in this encounter Medications at Time [...] MADRIGAL RN - 02/22/2016 20:08 CDT Source: [employer] Document Id: [id number] CDT!3 Nicky Madrigal RAugustine - 02/22/2016 8:08 PM CDT ED Pain Assessment ED Pain Assessment Entered On: 02/22/2016 20:08 CDT Performed On: 02/22/2016 20:08 CDT by NICKY MADRIGAL RN Pain Assessment Pain Symptoms : No NICKY MADRIGAL RN - 02/22/2016 20:08 CDT Source: [employer] Document Id: [id number] CDT!3 Nicky Madrigal R.N. - 02/22/2016 7:40 [...] MADRIGAL RN - 02/22/2016 20:09 CDT Source: [employer] Document Id: [id number] CDT!6 Nicky Madrigal RAugustine - 02/22/2016 7:22 [...] System: PowerChart ; Last Updated: 07/24/2011 10:45 MICROBIOLOGY COORDINATOR ; Life Cycle Date: 12/05/2010 ; Life [...] System: PowerChart ; Last Updated: 07/29/2014 7:02 MICROBIOLOGY COORDINATOR ; Life Cycle Status: Active ; Responsible [...] System: PowerChart ; Last Updated: 09/30/2012 15:06 MICROBIOLOGY COORDINATOR ; Life Cycle Date: 09/30/2012 ; Life Cycle Status: Active ; Responsible Provider: STEVE ANDREA APRN, CNP; Vocabulary: ICD-9-CM ; Comments: 09/30/2012 15:06 - STEVE ANDREA APRN, CNP left Genital warts (ICD-9-CM :078.19 ) Name of Problem: Genital warts ; Recorder: MARILUZ FRAGA MD; Confirmation: Confirmed ; Classification: UPDATE NEEDED ; Code: 078.19 ; Contributor System: PowerChart; Last Updated: 11/05/2015 4:20 MICROBIOLOGY COORDINATOR ; Life Cycle Date: 02/11/2013 ; Life [...] Code: 695.89 ; Last Updated: 07/14/2012 14:36 MICROBIOLOGY COORDINATOR ; Life Cycle Status: Active ; Responsible [...] System: PowerChart ; Last Updated: 09/05/2010 9:56 MICROBIOLOGY COORDINATOR ; Life Cycle Date: 09/05/2010 ; Life Cycle Status: Active ; Responsible Provider: STEVE ANDREA APRN DINKEY MECHANIC; Vocabulary: ICD-9-CM ; Comments: 09/30/2013 11:ANOOP ISAAC R REGIONAL OFFICE COORDINATOR onset unknown Optic disc cupping (ICD-9-CM :377.14 [...] Medical ; Code: 110.3 ; Contributor System: [employer] ; Last Updated: 06/01/2013 9:06 CDT ; Life Cycle Date: 06/01/2013 ; Life Cycle Status: Active ; Responsible Provider: MARILUZ FRAGA MD; Vocabulary: ICD-9-CM ; Comments: 09/30/2013 11:ANOOP ISAAC RLPN onset unknown Tinea pedis* (ICD-9-CM :110.4 ) Name of Problem: Tinea pedis* ; Recorder: MARILUZ FRAGA MD; Confirmation: Confirmed ; Classification: Medical ; Code: 110.4 ; Contributor System: [employer] ; Last Updated: 02/02/2014 8:24 CDT ; Life Cycle Date: 06/01/2013 ; Life Cycle Status: Active ; Responsible Provider: MARILUZ FRAGA MD; Vocabulary: ICD-9-CM ; Comments: 09/30/2013 11:ANOOP ISAAC R REGIONAL OFFICE COORDINATOR onset unknown Ulcer of skin NOS (ICD-9-CM :707.9 ) Name of Problem: Ulcer of skin NOS ; Recorder: HALEIGH SCHULTZ APRN DINKEY MECHANIC; Confirmation: Confirmed ; Classification: UPDATE NEEDED ; Code: 707.9 ; Contributor System:PowerChart ; Last Updated: 09/18/2010 8:25 MICROBIOLOGY COORDINATOR ; Life Cycle Date: 09/18/2010 ; Life Cycle Status: Active ; Responsible Provider: HALEIGH SCHULTZ APRN, CNP; Vocabulary: ICD-9-CM ; Comments: 09/30/2013 11:47 - ANOOP QUEVEDO LPN onset unknown Unspecified Adjustment Reaction (ICD-9-CM :309.9 ) Name of Problem: Unspecified Adjustment Reaction ; Onset Date: 05/05/2013 ; Confirmation: Confirmed ; Classification: Medical ; Code: 309.9 ; Contributor System: [facility] ; Last Updated: 12/03/2013 18:36 CDT ; Life Cycle Status: Active ; Vocabulary: ICD-9-CM ; Comments: - Unspecified adjustment reaction Urge Incontinence (ICD-9-CM :788.31 ) Name of Problem: Urge Incontinence ; Recorder: STEVE ANDREA CNP; Confirmation: Confirmed ; Classification: Medical ; Code: 788.31 ; Contributor System: [employer] ; Last Updated: 02/20/2010 8:39 CDT ; [...] PNED ; Probability: 0 ; Diagnosis Code: [id number] Throat pain - Adult Date: 02/22/2016 ; Diagnosis Type: Reason For Visit ; Confirmation: Complaint of; Clinical Dx: Throat pain - Adult ; Classification: Medical ; Clinical Service: Non-Specified ; Code: PNED ; Probability: 0 ; Diagnosis Code: [id number] Triage Chief Complaint Description : See Triage Note Mode of Arrival ED : Private vehicle Track : Medical Languages : Welsh Treatments Prior to Arrival : None Is [...] MADRIGAL RN - 02/22/2016 19:22 CDT Source: [facility] [employer] Document Id: [id number] CDT!45 Cierra Barker M.D. - 02/22/2016 7:06 PM CDT Throat pain - Adult Patient: ONEMÍ LUNA Age: 55 years Sex: Male : [...] on 09/29/2012 at 52 years. Comments: 09/30/2012 MICROBIOLOGY COORDINATOR 15:06 MICROBIOLOGY COORDINATOR - STEVE ANDREA APRN DINKEY MECHANIC left Genital warts (078.19) Comments: 09/30/2013 MICROBIOLOGY COORDINATOR 11:47 MICROBIOLOGY COORDINATOR ANOOP GONZALEZ LPN onset unknown Tinea pedis* (110.4) Comments: 09/30/2013 MICROBIOLOGY COORDINATOR 11:47 MICROBIOLOGY COORDINATOR ANOOP GONZALEZ REGIONAL OFFICE COORDINATOR onset unknown Tinea cruris. (110.3) Comments: 09/30/2013 MICROBIOLOGY COORDINATOR 11:47 MICROBIOLOGY COORDINATOR ANOOP GONZALEZ REGIONAL OFFICE COORDINATOR onset unknown. Surgical history: Gastric bypass ([id number]) on 11/19/2014 at 54 Years. Cystoscopy ([id number]) on 12/26/2009 at 49 Years. Comments: 02/20/2010 08:36 - STEVE ANDREA DINKEY MECHANIC [facility] / normal PSA, TOTAL SCREENING (G0103) on 12/26/2009 at 49 Years. Comments: 02/20/2010 08:38 - STEVE ANDREA DINKEY MECHANIC Done at [facility] / Result: 1.55 Discectomy ([id number]) on 02/19/1989 at 28 Years. Comments: 12/28/2009 [...] BARKER MD On: 02/22/2016 07:46 PM Source: [facility] POWERCHART Document Id: [id number]} Nicky Madrigal, R.N. - 02/22/2016 6:28 PM [...] Medical ; Code: 600.00 ; Contributor System: [employer] ; Last Updated: 02/15/2010 10:00 CDT ; [...] System: PowerChart ; Last Updated: 07/24/2011 10:45 MICROBIOLOGY COORDINATOR ; Life Cycle Date: 12/05/2010 ; Life [...] System: PowerChart ; Last Updated: 07/29/2014 7:02 MICROBIOLOGY COORDINATOR ; Life Cycle Status: Active ; Responsible [...] System: PowerChart ; Last Updated: 09/30/2012 15:06 MICROBIOLOGY COORDINATOR ; Life Cycle Date: 09/30/2012 ; Life Cycle Status: Active ; Responsible Provider: STEVE ANDREA APRN, CNP; Vocabulary: ICD-9-CM ; Comments: 09/30/2012 15:06 - STEVE ANDREA APRN, CNP left Genital warts (ICD-9-CM :078.19 ) Name of Problem: Genital warts ; Recorder: MARILUZ FRAGA MD; Confirmation: Confirmed ; Classification: UPDATE NEEDED ; Code: 078.19 ; Contributor System: [employer]; Last Updated: 11/05/2015 4:20 MICROBIOLOGY COORDINATOR ; Life Cycle Date: 02/11/2013 ; Life [...] Code: 695.89 ; Last Updated: 07/14/2012 14:36 MICROBIOLOGY COORDINATOR ; Life Cycle Status: Active ; Responsible [...] Obesity NOS ; Recorder: STEVE ANDREA APRN DINKEY MECHANIC; Confirmation: Confirmed ; Classification: Medical ; Code: 278.00 ; Contributor System: PowerChart ; Last Updated: 09/05/2010 9:56 MICROBIOLOGY COORDINATOR ; Life Cycle Date: 09/05/2010 ; Life Cycle Status: Active ; Responsible Provider: STEVE ANDREA APRN DINKEY MECHANIC; Vocabulary: ICD-9-CM ; Comments: 09/30/2013 11:47 ANOOP GONZALEZ REGIONAL OFFICE COORDINATOR onset unknown Optic disc cupping (ICD-9-CM :377.14 [...] Name of Problem: Tinea pedis* ; Recorder: MAIRLUZ FRAGA MD; Confirmation: Confirmed ; Classification: Medical [...] UPDATE NEEDED ; Code: 707.9 ; Contributor System:[employer] ; Last Updated: 09/18/2010 8:25 MICROBIOLOGY COORDINATOR ; Life Cycle Date: 09/18/2010 ; Life Cycle Status: Active ; Responsible Provider: HALEIGH SCHULTZ APRN, CNP; Vocabulary: ICD-9-CM ; Comments: 09/30/2013 11:47 - ANOOP QUEVEDO LPN onset unknown Unspecified Adjustment Reaction (ICD-9-CM :309.9 ) Name of Problem: Unspecified Adjustment Reaction ; Onset Date: 05/05/2013 ; Confirmation: Confirmed ; Classification: Medical ; Code: 309.9 ; Contributor System: [facility] ; Last Updated: 12/03/2013 18:36 CDT ; Life Cycle Status: Active ; Vocabulary: ICD-9-CM ; Comments: - Unspecified adjustment reaction Urge Incontinence (ICD-9-CM :788.31 ) Name of Problem: Urge Incontinence ; Recorder: STEVE ANDREA CNP; Confirmation: Confirmed ; Classification: Medical ; Code: 788.31 ; Contributor System: [employer] ; Last Updated: 02/20/2010 8:39 CDT ; [...] PNED ; Probability: 0 ; Diagnosis Code: [id number] Triage Chief Complaint Description : Sore Throat for 1 week. Unable to eat or drink for approx. can take sips of liquids and clear liq. Slight discomfort/dull pain in chest. patient believes it could be from not eating anything. Information Given By : Patient Present in Room During Exam/Procedure : Alone Mode of Arrival ED : Private vehicle Track : Medical Languages : Welsh Treatments Prior to Arrival : None Is Patient Female and 13-50 no hysterectomy : No NICKY MADRIGAL Terri RN - 02/22/2016 18:28 CDT Pain Assessment Pain Symptoms : Yes NICKY MADRIGAL Terri RN - 02/22/2016 18:28 [...] : 4 -Less Urgent Tracking Group : [facility] ED NICKY MADRIGAL Terri RN - 02/22/2016 [...] MADRIGAL RN - 02/22/2016 18:28 CDT Source: [facility] [employer] Document Id: [id number] CDT!46 documented in this encounter Miscellaneous Notes [...] before making changes. Pt hung up. Source: [facility] [employer] Document Id: [id number] Electronically signed by Conversion, [facility] Vehicle Trimmer [id number] at 01/31/2017 6:19 PM CDT Miscellaneous - Shirlene Dominguez R.N. - 02/26/2016 1:30 PM CDT Tums From: SHIRLENE DOMINGUEZ RN Sent: 02/26/2016 13:30:48 CDT Subject: Tums Pt wants only Forde flavored Tums, would have to be extra strength. Discussed with provider, pt has instructions on taking and can not change script amount without visit to discuss. Source: [facility] [employer] Document Id: [id number] Electronically signed by Conversion, [facility] Vehicle Trimmer [id number] at 01/31/2017 6:19 PM CDT Miscellaneous - Nicky Madrigal R.N. - 02/22/2016 8:08 PM CDT Valuables/Belongings Valuables/Belongings Entered On: 02/22/2016 20:08 CDT Performed On: 02/22/2016 20:08 CDT by NICKY MADRIGAL RN Valuables/Belongings Home Medication Disposition : None brought in with patient NICKY MADRIGAL RN - 02/22/2016 20:08 CDT Source: [facility] [employer] Document Id: [id number] CDT!3 Miscellaneous - Conversion, Historical Provider Ser - 02/22/2016 8:05 PM CDT Coding Summary-Paper Based CODING DATE: 02/29/2016 FINAL [facility] STATUS: * Discharged to Home or [...] VERGARA Date Saved: 02/29/2016 02:01 pm [facility] Document Id: [id number] Miscellaneous - Nicky Madrigal, R.N. - 02/22/2016 [...] Nursing Notes ED Primary Assessment,02/22/16 19:22,NICKY MADRIGAL TIE INSPECTOR Pain Assessment,02/22/16 20:08,NICKY MADRIGAL RN [facility] Nursing Assessment : Triage and 1-2 nursing assessments [facility] Disposition : Discharge [facility] Total Points with Diagnosis Control : 5 [facility] Visit Level : 28667 Level 3 Treatments Prior to Arrival : None NICKY MADRIGAL RN - 02/22/2016 20:08 CDT Source: [employer] Document Id: [id number] CDT!18 documented in this encounter Plan of [...] Strep A Screen (02/22/2016 6:50 PM CDT) [facility] Method Time Signature HXRapid Strep POWERCHART Confirmation HXPre Pending POWERCHART HXFinal NEG POWERCHART HXFinal [facility] [address] [facility] [address] Specimen Anatomical Collection Method Collection Time Receive d Time (Source) Location / / Volume Laterality Throat 02/22/2016 6:50 PM 6 6:50 CDT PM CDT Cierra Barker M.D. LAB MICROBIOLOGY - GENERAL O SARAH Performing Organization Address City/State/ZIP Code Phon e Number POWERCHART Rapid Strep A Screen (02/22/2016 6:50 PM CDT) [facility] Method Time Signature HXStrep A POWERCHART Screen [...]
--- OUTSIDE RECORDS SUMMARY | 2022-08-05 10:17 | XMS_ITS | Encounter Summary ---
:1960 Author Organization [facility] Address [address] [place] [address] Care Team Providers Name Role Phone Unavailable [...]
--- OUTSIDE RECORDS SUMMARY | 2022-08-05 10:17 | XMS_ITS | Encounter Summary ---
:1960 Author Organization [facility] Address [address] [place] [address] Care Team Providers Name Role Phone Unavailable Primary Care Provider Unavailable Encounter Details Date Type Department Care Team Description 04/29/2016 Hospital En[facility] [place] Kevin Aguirre M.D. [address] [place] [phone] (Wo rk) Social History Tobacco Use [...] has been seen by plastic surgery in [place] to discuss a panniculectomy due to his [...] pannus. Pictures were taken and uploaded to [employer]. LAB RESULTS Sodium Lvl: 137.3 05/12/15 Potassium [...] Absolute: 4.17 04/07/16 Lymph Absolute: 1.55 04/07/16 Louisa Absolute: 0.55 04/07/16 Eos Absolute: 0.12 04/07/16 Baso Absolute: 0.02 04/07/16 Differential?: Auto 05/12/15 IMPRESSION/REPORT/PLAN 1. DM2 A1c looks great at 5.6. Encouraged patient to continue with healthy diet. I would also like him to check his blood sugars a couple times per month. Ordered: OV Est Pt Level 4 - 42964 - 25 min 2. Bradycardia NOS Heart rate continues in the 40s which is not unusual for patient. With his blood pressure being so good, we are going to stop his metoprolol and have him check his blood pressure and pulse a couple times per week. Ordered: OV Est Pt Level 4 - 21766 - 25 min 3. Hypertension HTN NOS As per #2. Stop metoprolol and monitor. We will call in 1 month for a followup. Ordered: OV Est Pt Level 4 - 60561 - 25 min 4. Insufficiency Renal NOS Creatinine in early April was 1.55. On recheck today it is better. We discussed that taking such high doses of diuretics can certainly cause that to go up. Ordered: OV Est Pt Level 4 - 61466 - 25 min 5. Hyperlipidemia NOS Lipid panel was at goal. He does not need a statin currently. Ordered: OV Est Pt Level 4 - 19180 - 25 min 6. Tinea Groin Perianal Area Pictures were taken of his tinea infection. His plastic surgeon will be updated. He can continue with powder. Ordered: OV Est Pt Level 4 - 52876 - 25 min 7. Retention Fluid We restarted Lasix 40 mg daily as needed for weight gain. Again advised that he should not take really high doses because it affects his kidney function. Ordered: OV Est Pt Level 4 - 49510 - 25 min Orders: furosemide, 40 mg = 1 tab(s), PO, Daily, PRN edema, Leg Swelling, # 90 tab(s), 3 Refill(s), Maintenance, Pharmacy: [id number] Electronically Signed By: KEVIN KILGORE MD On: 04/30/2016 06:30 AM Source: [facility] POWERCHART Document Id: [id number] documented in this encounter Miscellaneous Notes Telephone Encounter - Conversion, Historical Provider Ser - 09/01/2016 1:29 PM CST *Phone Message Document Contains Addenda Addendum by JUDITH PATE LPN on September 02, 2016 08:26:09 [facility]ACH pharmacy changed in chart per request. From: ANUSHA MAURICE To: ART Family Medicine Nurse Bennett; Sent: 09/01/2016 13:29:58 POPULATION HEALTH COACH Subject: *Phone Message Caller is: (X ) Patient ( ) Mother ( ) Father ( ) Spouse ( ) Daughter ( ) Son ( ) Pharmacy ( ) Other: Physician: Kevin Kilgore Patient MRN #: Reason for Call: Switched Pharmacy's Message: Patient called to state that he switched from [facility] to [facility] in [place]. Any question please call [phone]. No voice mail Advice/Action: Source used: ( [...] back cell phone number ( ) Source[facility] Document Id: [id number] Telephone Encounter - Conversion, Historical Provider Ser [...] 18:23:07 CDT From: KEVIN KILGORE MD To: [place] Family Medicine Nurse Bennett; Sent: 06/10/2016 18:23:07 [...] 2016 14:16:35 CDT From: ANOOP QUEVEDO LPN ([place] Family Medicine Nurse Guajardo) To: KEVIN KILGORE MD; Sent: 06/10/2016 14:16:35 CDT Subject: FW: *Phone Message Please advise as our medication list shows he is taking Lasix 40mg Prn. Thanks Anoop From: MARTI CHOI I ([place] Family Medicine Ndt Inspector) To: [place] Family Medicine Nurse Bennett; Sent: 06/10/2016 13:19:55 [...] he takes 2/day. Pharmacy is [facility] in [place]. Patient is hard to reach by phone, but number is [phone]. Advice/Action: Source used: ( ) Verbalizes understanding [...] cell phone number ( ) Source: [facility] POWERCHART Document Id: [id number] Miscellaneous - Kevin Cobb M.D. - 04/30/2016 9:21 AM CDT Results Notification Document Contains Addenda Addendum by ANGEL NGUYEN on April 30, 2016 11:17:11 CDT Vineet Ramirez LPN, already addressed with patient. From: KEVNI KILGORE MD To: ART Family Medicine Nurse [...] (MDRD) >60 mL/min/1.73m2 (>=60 - ) Source: [facility] POWERCHART Document Id: [id number] Electronically signed by Conversion, [facility] Senior Insight Manager International [id number] at 02/01/2017 1:26 AM CDT Telephone Encounter [...] 08:45:43 CDT From: HARVEY REDDY LPN ([facility] Medicine Nurse Guajardo) To: KEVIN KILGORE MD; Sent: 04/30/2016 08:45:43 CDT Subject: FW: *Phone Message From: MARTI CHOI I ([place] Family Medicine Ndt Inspector) To: [place] Family Medicine Nurse Guajardo; Sent: 04/30/2016 08:11:07 [...] was eating, he occasionally has pizza from [employer]. He also meant to ask her about a problem with his nose running a lot. It is an issue his father had and was never able to be diagnosed, he is wondering if Dr Song would have any thoughts regarding this. Cell number is [phone], home number is [phone]. Advice/Action: Source used: ( ) Verbalizes understanding [...] cell phone number ( ) Source: [facility] POWERCHART Document Id: [id number] Miscellaneous - Kevin Cobb M.D. - 04/30/2016 6:35 AM CDT Reminder Msg Document Contains Addenda Addendum by ANGEL NGUYEN on June 02, 2016 14:46:51 CDT Done, see message dated 06/02/16. From: KEVIN KILGORE MD To: [place] Family Medicine Nurse [place]; Sent: 04/30/2016 06:35:09 CDT Show up: 05/31/2016 06:35:00 CDT Subject: Reminder Msg Please Remember to: Please call patient for BP and pulse readings. You will speak with his Julissa. Kevin Segura PATIENT: ( ) Call Patient ( ) Ask Patient to ( ) ( ) Call Relative ( ) Schedule Patient ( ) ( ) Call for Auto Damage Trainee ( ) Follow up on Results ( ) Other: PROVIDER: ( ) Call Physician ( ) Call Pharmacist ( ) Call Lab ( ) Other: Special Instructions: Comments: Source: [facility] POWERCHART Document Id: [id number] Electronically signed by Dayami [facility] Senior Insight Manager International [id number] at 02/01/2017 1:26 AM CDT Miscellaneous - Kevin Cobb M.D. - 04/29/2016 7:24 PM CDT Ambulatory Patient Summary [address] [id number] Visit Information Name: NOEMÍ LUNA [facility] Number: [id number] Current Date: 04/29/2016 19:24:41 [...] Swelling This is a CHANGE Routed to [address] [address] *multivitamin with minerals (Flintstones Complete [...] you dont have one. Go to [email or web address] and click on Create Your Account. Then, follow the directions to complete the online form. Youll be asked for your [facility] number which you can find at the top of this document. Your Goals/Additional instructions: Source: [facility] POWERCHART Document Id: [id number] Miscellaneous - Kevin Cobb M.D. - 04/29/2016 7:24 PM CDT Ambulatory Discharge Medication List [address] [id number] Visit Information Name: NOEMÍ LUNA [facility] Number: [id number] Visit Date: 04/29/2016 19:24:41 [...] Swelling This is a CHANGE Routed to [address] [address] *multivitamin with minerals (Flintstones Complete oral tablet, [...] MD Signed On:29-APR-2016 19:24:36 Additional Information: Source: [facility] POWERCHART Document Id: [id number] Miscellaneous - Alvina Langston, L.P.N. - 04/29/2016 6:33 PM CDT Adult Model Maker Scale Intake/History Adult Model Maker Scale Intake/History Entered On: 04/29/2016 18:37 CDT Performed [...] it 181 from home scale. ALVINA LANGSTON [facility] - 04/29/2016 18:33 CDT General Info Information Given By : Patient Preferred Communication Mode : Verbal Languages : Spanish Is Patient Female and 13-50 no hysterectomy : No ALVINA LANGSTON [facility] - 04/29/2016 18:33 CDT Subjective Pain Symptoms : No ALVINA LANGSTON LPN - 04/29/2016 18:33 CDT Dependent Habits Exposure to Tobacco Smoke : Care provider denies smoking in home, Other: never Smoking Status : Never smoker Tobacco 2A : No Tobacco Use/Currently Using : No Tobacco Use/Last 30 Days : No Tobacco Use/Last 12 months : No Alcohol Use : No ALVINA LANGSTON [facility] - 04/29/2016 18:33 CDT Caffeine Use Grid Caffeine Use : Current Type : Coffee, Soft drinks Frequency : Weekly Amount : soda- weekly; coffee- 1x/week ALVINA LANGSTON [facility] - 04/29/2016 18:33 CDT Recreational Drug Use Grid Drug Use : None ALVINA LANGSTON [facility] - 04/29/2016 18:33 CDT Source: [facility] POWERCHART Document Id: [id number] CDT!40 documented in this encounter Plan of [...] MGDL HXeGFR (MDRD) 54 (L) >=60 POWERCHART [id number] eGFR >60 >=60 POWERCHART Black/ [id number] [place]an Specimen (Source) Anatomical Collection Method [...]
--- OUTSIDE RECORDS SUMMARY | 2022-08-05 10:17 | XMS_ITS | Encounter Summary ---
:1960 Author Organization [facility] Address [address] [place] [address] Care Team Providers Name Role Phone Cintia Cobb M.D. Primary Care Provider [phone] Encounter Details Date Type Department Care Team Description 03/30/2017 Confidential HX RST NO MAPPING Jennifer Shaffer M.D. [address] [place], [place] [phone] (Wo rk) Social History Tobacco Use Types Packs/Day Years Used Date Smoking Tobacco: Never Sex Assigned at Date Recorded Not on file documented as of this encounter Progress Notes Jennifer Shaffer M.D. - 03/30/2017 8:41 AM CDT DEMOGRAPHIC INFORMATION Clinic Number: [id number] Patient Name: Laz Luna Age: 56 Y Birthdate: 1960 Sex: M [address] [facility] City: [place] [address] CONFIDENTIAL NOTE Service Date/Time: 30-Mar-2017 08:41 Provider: Jennifer Shaffer MD Pager: [phone] Service: CV Type/Desc: MIS Status: Fnl Revision [...] by Shama Shaffer MD Clinical Notes - [id number] Id: [id number] Status: Fnl documented in this encounter Plan of Treatment Not on filedocumented as of this encounter Visit Diagnoses Not on filedocumented in this encounter Additional Health Concerns Assessment Noted Time PHQ-9 Depression Total Score: 18 02/14/2013 9:53 AM CD T documented as of this encounter Care Teams Food Science Professor Relationship Specialty Start Date End Date Cintia Cobb M.D. PCP - General 02/19/17 02/20/[address] [place] [phone] documented as of this encounter
--- OUTSIDE RECORDS SUMMARY | 2022-08-05 10:17 | XMS_ITS | Encounter Summary ---
:[address] [facility] Address [address] [place] [address] Care Team Providers Name Role Phone Unavailable [...]
--- OUTSIDE RECORDS SUMMARY | 2022-08-05 10:17 | XMS_ITS | Encounter Summary ---
:1960 Author Organization [facility] Address [address] [place] [address] Care Team Providers Name Role Phone Unavailable [...]
--- OUTSIDE RECORDS SUMMARY | 2022-08-05 10:17 | XMS_ITS | Encounter Summary ---
:1960 Author Organization [facility] Address [address] [place] [address] Care Team Providers Name Role Phone Unavailable Primary Care Provider Unavailable Encounter Details Date Type Department Care Team Description 09/15/2015 Hospital Encounter HX [facility] Cintia Cobb M.D. [address] [place] [phone] (Wo rk) Social History Tobacco Use [...] 180 cm (5' 10.87) 09/15/2015 9:54 AM PUG MACHINE OPERATOR Body Mass Index - - documented [...] 09/15/2015 10:30 AM Result s for this PUG MACHINE OPERATOR procedure are i n the results section . documented in this encounter Results Lipid Panel (09/15/2015 10:30 AM PUG MACHINE OPERATOR) P athologist Signature Cholesterol, 119 <=199 MGDL [...] at or the on-line test catalog at [facility] for information about how to order these wandy ts or to speak with a genetic counselor. Further interpretation would require clinical information. Total Cholesterol/HDL Ratio 2 PO WERCHART Specimen (Source) Anatomical Collection Method Collection Time Re ceived Time Location / / Volume Laterality Blood 09/15/2015 10:30 AM PUG MACHINE OPERATOR Cintia Copeland M.D. LAB BLOOD ADD-ON Performing Organization Address City/State/ZIP Code Phon e Number POWERCHART documented in this encounter Visit Diagnoses Not on filedocumented in this encounter Additional Health Concerns Assessment Noted Time PHQ-9 Depression Total Score: 18 02/14/2013 9:53 AM CD T documented as of this encounter
--- OUTSIDE RECORDS SUMMARY | 2022-08-05 10:18 | XMS_ITS | Encounter Summary ---
:1960 Author Organization [facility] Address [address] [place] [address] Care Team Providers Name Role Phone Unavailable Primary Care Provider Unavailable Encounter Details Date Type Department Care Team Description 08/04/2015 Hospital Encounter HX [facility] [place] Piero Swann M.D. [address] [place] [phone] (Wo rk) Social History Tobacco Use Types Packs/Day Years Used Date Smoking Tobacco: Never Assessed Sex Assigned at Date Recorded Not on file documented as of this encounter Last Filed Vital Signs Vital Sign Reading Time Taken Comments Blood Pressure 115/60 08/04/2015 11:59 AM LUMBER HANDLER Pulse 42 08/04/2015 11:59 AM LUMBER HANDLER Temperature - - Respiratory Rate 16 08/04/2015 11:59 AM LUMBER HANDLER Oxygen Saturation - - Inhaled Oxygen Concentration - - Weight - - Height 185 cm (6' 0.84) 08/04/2015 11:59 AM LUMBER HANDLER Body Mass Index - - documented in [...] CST *General Message From: JUDITH PATE LPN ([place] Family Medicine Nurse [place]) To: JUDITH PATE LPN; Sent: 08/21/2015 09:44:40 LUMBER HANDLER Subject: *General Message pt called and left message on voicemail stating he is sick, coughing, sore throat that hurts so bad. x3days per pt request to leave a message left a message and informed pt that he will need to make and appt or call and speak to an Expert RN nurse line. Source: [facility] POWERCHART Document Id: [id number] Electronically signed by Dayami [facility] Manager Organizational [id number] at 02/02/2017 6:21 AM CDT Miscellaneous - Shirlene Abbott R.N. - 08/13/2015 8:38 AM CST COLIN Document Contains Addenda Addendum by VINEET RAMIREZ LPN on 16 August 2015 07:24:01 LUMBER HANDLER From: VINEET RAMIREZ LPN To: SHIRLENE ABBOTT RN; Cc: KEVIN KILGORE MD; Sent: 08/16/2015 07:24:01 LUMBER HANDLER Subject: FW: COLIN pt left detailed message that trell Donaldson called and talked to his and told her about lab workthat was done. From part of his message it was Sorin who called and gave her the info below. He states that it is best to call her cell # of [phone] and leave a message as she can't [...] RAMIREZ LPN on 16 August 2015 07:16:50 LUMBER HANDLER From: VINEET RAMIREZ LPN To: VINEET RAMIREZ LPN; Sent: 08/16/2015 07:16:50 LUMBER HANDLER Subject: FW: FYI Addendum by SORIN VARGAS RN on 15 August 2015 09:21:07 LUMBER HANDLER updated with message below, verbalized understanding and able to repeat back. Addendum by KEVIN KILGORE MD on 15 August 2015 07:59:43 LUMBER HANDLER From: KEVIN KILGORE MD To: [place] Family Medicine Nurse [place]; Sent: 08/15/2015 07:59:43 LUMBER HANDLER Subject: call patient Please let patient know that I have reviewed the blood sugars he dropped off. They overall look good. I would still prefer that he check his blood sugars at least 2 times per week. His A1c did go up a little to 6.0%. In regards to his weight fluctuations, I think he needs to follow up with the dietitian in [place] as we had discussed at his last [...] To: KEVIN KILGORE MD; Sent: 08/13/2015 08:38:46 LUMBER HANDLER Subject: FYI Pt called to ask if he could stop taking his B12 shots, says he hasn't done them. Advised again as [facility] in [facility] that he still needs to take them, [...] would not be answering his phone. Source: [facility] [employer] Document Id: [id number] Miscellaneous - Shirlene Abbott R.N. - 08/09/2015 3:45 PM CST *General Message From: SHIRLENE ABBOTT RN Sent: 08/09/2015 15:45:14 LUMBER HANDLER Subject: *General Message Pt called for A1C, result given Source: [facility] [employer] Document Id: [id number] Electronically signed by Conversion, [facility] Manager Organizational [id number] at 02/02/2017 6:21 AM CDT Lulycellwalter - Anoop Mujica L.PAugustine - 08/04/2015 12:06 PM CST *General Message From: ANOOP MUJICA LPN ([place] Family Medicine Nurse [place]) To: KEVIN KILGORE MD; Sent: 08/04/2015 12:06:33 LUMBER HANDLER Subject: *General Message Patient came in on [...] on any further orders Thanks Anoop Source: [employer] Document Id: [id number] Electronically signed by Conversion, [facility] Manager Organizational [id number] at 02/02/2017 6:21 AM CDT Osbaldo - Anoop Mujica L.PPiliNPili - 08/04/2015 11:59 AM CST Ambulatory Vitals Height Weight Ambulatory Vitals Height Weight Entered On: 08/04/2015 12:03 LUMBER HANDLER Performed On: 08/04/2015 11:59 LUMBER HANDLER by ANOOP MUJICA LPN Vitals/Ht/Wt Peripheral Pulse [...] inch(es)) ANOOP MUJICA LPN - 08/04/2015 11:59 LUMBER HANDLER Source: [facility] POWERCHART Document Id: [id number] LUMBER HANDLER!13 ER HANDLER documented in this encounter Plan of Treatment Not on filedocumented as of this encounter Procedures Procedure Name Priority Date/Time Associated Diagnosis Comme nts HEMOGLOBIN A1C, B Routine 08/04/2015 10:45 AM Res ults for this LUMBER HANDLER procedure are i n the results section. documented in this encounter Results (ABNORMAL) Hemoglobin A1c (08/04/2015 10:45 AM LUMBER HANDLER) P athologist Signature Hemoglobin A1c, 6.0 (H) <=5.6 A1C POWERCHART B Specimen (Source) Anatomical Collection Method Collection Time Re ceived Time Location / / Volume Laterality Blood 08/04/2015 10:45 AM LUMBER HANDLER Kevin Copeland M.D. LAB BLOOD ADD-ON Performing Organization Address City/State/ZIP Code Phon e Number POWERCHART documented in this encounter Visit Diagnoses Not on filedocumented in this encounter Additional Health Concerns Assessment Noted Time PHQ-9 Depression Total Score: 18 02/14/2013 9:53 AM CD T documented as of this encounter
--- OUTSIDE RECORDS SUMMARY | 2022-08-05 10:18 | XMS_ITS | Encounter Summary ---
:1960 Author Organization [facility] Address [address] [place] [address] Care Team Providers Name Role Phone Unavailable Primary Care Provider Unavailable Encounter Details Date Type Department Care Team Description 08/04/2015 Hospital Encounter HX [facility] Cintia Cobb M.D. [address] [place] [phone] (Wo rk) Social History Tobacco Use [...] 185 cm (6' 0.84) 08/04/2015 10:39 AM PRIVATE CHEF Body Mass Index - - documented in [...] Routine 08/04/2015 10:45 AM Results for this PRIVATE CHEF procedure are i n the results section . documented in this encounter Results (ABNORMAL) Hemoglobin (08/04/2015 10:45 AM PRIVATE CHEF) athologist Signature Hemoglobin 12.4 (L) 13.5 - 17.5 POWERCHART GDL Specimen (Source) Anatomical Collection Method Collection Time Re ceived Time Location / / Volume Laterality Blood 08/04/2015 10:45 AM PRIVATE CHEF Cintia Copeland M.D. LAB BLOOD ADD-ON Performing Organization Address City/State/ZIP Code Phon e Number POWERCHART documented in this encounter Visit Diagnoses Not on filedocumented in this encounter Additional Health Concerns Assessment Noted Time PHQ-9 Depression Total Score: 18 02/14/2013 9:53 AM CD T documented as of this encounter
--- OUTSIDE RECORDS SUMMARY | 2022-08-05 10:18 | XMS_ITS | Encounter Summary ---
:[address] [facility] Address [address] [place] [address] Care Team Providers Name Role Phone Unavailable Primary Care Provider Unavailable Encounter Details Date Type Department Care Team Description 08/24/2015 Hospital Encounter HX [facility] ED Alon Benavides M.D. [address] [place], [place] [address] (Wo rk) Social History Tobacco Use Types Packs/Day Years Used Date Smoking Tobacco: Never Assessed Sex Assigned at Date Recorded Not on file documented as of this encounter Last Filed Vital Signs Vital Sign Reading Time Taken Comments Blood Pressure 128/80 08/24/2015 8:11 PM PORTABLE SAWYER Pulse 53 08/24/2015 8:11 PM PORTABLE SAWYER Temperature - - Respiratory Rate 16 08/24/2015 8:11 PM PORTABLE SAWYER Oxygen Saturation - - Inhaled Oxygen Concentration - - Weight 95 kg (209 lb 7 oz) 08/24/2015 6:36 PM PORTABLE SAWYER Height 180 cm (5' 10.87) 08/24/2015 8:11 PM PORTABLE SAWYER Body Mass Index 29.32 08/24/2015 6:36 PM PORTABLE SAWYER documented in this encounter Discharge Summaries Nik Cisneros R.N. - 08/24/2015 8:32 PM CST ED Discharge Instructions [address] [address] Name: JEREMY NOEMÍ Jim Date of : 1960 12:00 AM Visit Date: 08/24/2015 6:[address] [facility] Number: [id number] Address: [address] [employer] [id number] Primary Care Provider: KEVIN KILGORE MD IMPORTANT: [facility] in [place] would like to thank you for allowing us to assist you with your healthcare needs. The following includes patient education materials and informationregarding your injury/illness. Diagnosis: Viral Syndrome Follow-Up Instructions: With: Address: When: KEVIN KILGORE [address] [place] [id number] [facility] (1) Within As Needed Comments: As [...] and be dangerous to your health. ?? Flpy-nsk-fzafrmm remedies won't shorten the length of the [...] better with fever medication ?? Convulsion ?? 2452-3397 [facility], [address] [place] [address]. All rights reserved. This information is not [...] if you dont have one. Go to [email or web address] and click on Create Your Account. Then, follow the directions to complete the online form. Youll be asked for your [facility] number which you can find at the [...] ride home with a responsible alliance party. JEREMY Contreras ED J , or responsible alliance [...] ride home with a responsible alliance party. JEREMY Contreras ED J , or responsible alliance party have received this information and my questions have been answered. I have discussed any challenges I see with this plan with the nurse or physician. Patient Signature or Responsible Republican/Relationship Date Time Provider Signature Date Time Source: [facility] POWERCHART Document Id: [id number] ABLE SAWYER Nik Cisneros R.N. - 08/24/2015 8:32 PM CST ED Depart Summary [facility] Emergency Department Clinical Discharge Summary PERSON INFORMATION Name NOEMÍ LUNA Age 55 Years 1960 12:00 AM Sex Male Language Taiwanese PCP KEVIN KILGORE MD Marital Status N [id number] Visit Id Visit Reason Body aches; Difficulty breathing/shakes/head pain Specialty Enc Type Emergency Med Service Emergency Medicine Referred by Track Group [facility] ED Discharge 08/24/2015 8:32 PM Tracking Id [id number] Checkout 08/24/2015 8:32 PM Checkin 08/24/2015 6:28 PM Acuity 5 -Non Urgent Dispo Type * Discharged to Home or Self Care Arrival 08/24/2015 6:28 PM Reg Status Complete LOS 000 02:04 Address: [address] [phone] Comment: PROVIDER INFORMATION Provider Role Provider Contact Time ALON BENAVIDES MD ED Provider 08/24/15 18:53 BOBBY MUNOZ BLANKET WINDER OPERATOR Nurse 08/24/15 18:53 NIK CISNEROS BLANKET WINDER OPERATOR Nurse 08/24/15 20:32 DIAGNOSIS Viral Syndrome Comment: PATIENT EDUCATION INFORMATION Instructions: VIRAL SYNDROME (Adult) Follow up: With: Address: When: KEVIN FERRER-[address] [address] [facility] (1) Within As Needed Comments: As needed. If your lightheadedness continues or you don't feel better by Thursday then call your PCP. Focus on hydration. [facility] Document Id: [id number] ABLE SAWYER documented in this encounter Medications at Time of Discharge Medication Sig Dispensed Refills Start Date End Date ferrous sulfate 325 mg Take 1 tablet by 0 015 11/24/2017 (65 mg iron) tablet mouth 2 (two) times a day. documented as of this encounter ED Notes Nik Cisneros R.N. - 08/24/2015 8:20 PM CST ED Pain Assessment ED Pain Assessment Entered On: 08/24/2015 20:20 PORTABLE SAWYER Performed On: 08/24/2015 20:20 PORTABLE SAWYER by NIK CISNEROS RN Pain Assessment Pain Symptoms : Yes NIK CISNEROS RN - 08/24/2015 20:20 PORTABLE SAWYER Source: [employer] Document Id: [id number] PORTABLE SAWYER!3 ABLE SAWYER Nik Cisneros R.N. - 08/24/2015 8:19 PM CST ED Disposition Summary ED Disposition Summary Entered On: 08/24/2015 20:20 PORTABLE SAWYER Performed On: 08/24/2015 20:19 PORTABLE SAWYER by NIK CISNEROS RN ED Disposition Summary Accompanied By : Alone Mode of Discharge : Ambulatory Transportation : Private vehicle Discharge From ED With : Home Med List Printed Discharge Instructions Given to Patient : Yes Patient Status at Discharge from ED : Unchanged NIK CISNEROS RN - 08/24/2015 20:19 PORTABLE SAWYER [facility] Document Id: [id number] PORTABLE SAWYER!8 ABLE SAWYER Alon Benavides M.D. - 08/24/2015 7:24 PM CST General Medical *ED Document Contains Addenda Addendum by ALON BENAVIDES MD on 24 August 2015 20:15 PORTABLE SAWYER The patient appears well, does not appear [...] Note : Chief Complaint Description 08/24/2015 18:45 PORTABLE SAWYER Chief Complaint Description see triage note 08/24/2015 18:36 PORTABLE SAWYER Chief Complaint Description Body aches, cough, headache, [...] on 09/29/2012 at 52 years. Comments: 09/30/2012 PORTABLE SAWYER 15:06 STEVE COUCH CNP left Genital warts (078.19) Comments: 09/30/2013 PORTABLE SAWYER 11:47 PORTABLE SAWYER - ANOOP QUEVEDO R GEOPHYSICAL PROSPECTING SURVEYOR onset unknown Tinea pedis* (110.4) Comments: 09/30/2013 PORTABLE SAWYER 11:47 PORTABLE SAWYER ANOOP GONZALEZ R GEOPHYSICAL PROSPECTING SURVEYOR onset unknown Tinea cruris. (110.3) Comments: 09/30/2013 PORTABLE SAWYER 11:47 PORTABLE SAWYER ANOOP GONZALEZ R GEOPHYSICAL PROSPECTING SURVEYOR onset unknown, DM 2, HTN. Surgical history: Gastric bypass ([id number]) on 11/19/2014 at 54 Years. Cystoscopy ([id number]) on 12/26/2009 at 49 Years. Comments: 02/20/2010 08:36 - STEVE ANDREA CNP [place] [facility] / normal PSA, TOTAL SCREENING (G0103) on 12/26/2009 at 49 Years. Comments: 02/20/2010 08:38 - STEVE ANDREA CNP Done at [place] / Result: 1.55 Discectomy ([id number]) on 02/19/1989 at 28 Years. Comments: 12/28/2009 09:38 - STEVE ANDREA CNP lumbar L4-L5. Social history: Reviewed as documented in chart, Alcohol use: Denies, Tobacco use: Denies, Drug use:Denies. Physical Examination Vital Signs: Vital Signs 08/24/2015 18:48 PORTABLE SAWYER Systolic Blood Pressure 131 mmHg Diastolic Blood Pressure 79 mmHg 08/24/2015 18:36 PORTABLE SAWYER Temperature Core 37.2 DegC Peripheral Pulse Rate 60 /min Respiratory Rate 18 /min SpO2 98 % Systolic Blood Pressure 141 mmHg HI Diastolic Blood Pressure 80 mmHg Mean Arterial Pressure 100 mmHg , Measurements 08/24/2015 18:48 PORTABLE SAWYER Height 180 cm 08/24/2015 18:36 PORTABLE SAWYER Height 180 cm Height Source Stated Dosing Weight 95.00 kg Actual Weight 95 kg Weight Source Standing scale Body Mass Index 29.32 kg/m2 , SpO2 08/24/2015 18:36 PORTABLE SAWYER SpO2 98 % . General: Alert and [...] BENAVIDES MD On: 08/24/2015 07:57 PM Source: [facility] POWERCHART Document Id: [id number]} ABLE SAWYER Bobby Munoz RPiliN. - 08/24/2015 6:45 PM CST ED Primary Assessment Document Has Been Updated ED Primary Assessment Entered On: 08/24/2015 19:04 PORTABLE SAWYER Performed On: 08/24/2015 18:45 PORTABLE SAWYER by BOBBY MUNOZ RN Reason For Visit (As Of: 08/24/2015 19:04:13 PORTABLE SAWYER) Problems(Active) BPH without urinary obstruction (ICD-9-CM :600.00 ) Name of Problem: BPH without urinary obstruction; Recorder: STEVE ANDREA CNP; Confirmation: Confirmed ; Classification: Medical ; Code: 600.00 ; Contributor System: [employer] ; Last Updated: 02/15/2010 10:00 CDT ; Life Cycle Date: 02/15/2010 ; Life Cycle Status: Active ; Responsible Provider: STEVE ADNREA CNP; Vocabulary: ICD-9-CM ; Comments: 09/30/2013 11:46 - ANOOP QUEVEDO LPN onset unknown DM II (or NOS), uncontrolled (ICD-9-CM :250.02 ) Name of Problem: DM II (or NOS), uncontrolled ; Onset Date: 12/28/2009 ; Recorder: STEVE ANDREA CNP; Confirmation: Confirmed ; Classification: Medical ; Code: 250.02 ; Contributor System: [employer] ; Last Updated: 07/24/2011 10:45 PORTABLE SAWYER ; Life Cycle Date: 12/05/2010 ; Life Cycle Status: Active ; Responsible Provider: STEVE ANDREA CNP; Vocabulary: ICD-9-CM Eczema (ICD-9-CM :692.9 ) Name of Problem: Eczema ; Recorder: STEVE ANDREA CNP; Confirmation: Confirmed ; Classification: Medical ; Code: 692.9 ; Contributor System: [employer] ; Last Updated: 01/25/2014 16:29 CDT ; [...] System: [employer] ; Last Updated: 07/29/2014 7:02 PORTABLE SAWYER ; Life Cycle Status: Active ; Responsible [...] System: [employer] ; Last Updated: 09/30/2012 15:06 PORTABLE SAWYER ; Life Cycle Date: 09/30/2012 ; Life [...] Comments: 09/30/2013 11:47 - QUEVEDO, ANOOP R GEOPHYSICAL PROSPECTING SURVEYOR onset unknown Hyperlipidemia (ICD-9-CM :272.4 ) Name [...] Code: 695.89 ; Last Updated: 07/14/2012 14:36 PORTABLE SAWYER ; Life Cycle Status: Active ; Responsible [...] System: [employer] ; Last Updated: 09/05/2010 9:56 PORTABLE SAWYER ; Life Cycle Date: 09/05/2010 ; Life Cycle Status: Active ; Responsible Provider: STEVE ANDREA CNP; Vocabulary: ICD-9-CM ; Comments: 09/30/2013 11:ANOOP ISAAC R GEOPHYSICAL PROSPECTING SURVEYOR onset unknown Optic disc cupping (ICD-9-CM :377.14 [...] Medical ; Code: 110.4 ; Contributor System: [employer] ; Last Updated: 02/02/2014 8:24 CDT ; Life Cycle Date: 06/01/2013 ; Life Cycle Status: Active ; Responsible Provider: MARILUZ FRAGA MD; Vocabulary: ICD-9-CM ; Comments: 09/30/2013 11:ANOOP ISAAC R GEOPHYSICAL PROSPECTING SURVEYOR onset unknown Ulcer of skin NOS (ICD-9-CM :707.9 ) Name of Problem: Ulcer of skin NOS ; Recorder: HALEIGH SCHULTZ CNP; Confirmation: Confirmed ; Classification: UPDATE NEEDED ; Code: 707.9 ; Contributor System: [employer] ; Last Updated: 09/18/2010 8:25 PORTABLE SAWYER ; Life Cycle Date: 09/18/2010 ; Life Cycle Status: Active ; Responsible Provider: HALEIGH SCHULTZ CNP; Vocabulary: ICD-9-CM ; Comments: 09/30/2013 11:47 - ANOOP QUEVEDO LPN onset unknown Unspecified Adjustment Reaction (ICD-9-CM :309.9 ) Name of Problem: Unspecified Adjustment Reaction ; Onset Date: 05/05/2013 ; Confirmation: Confirmed ; Classification: Medical ; Code: 309.9 ; Contributor System: [facility]PL[facility]AD ; Last Updated: 12/03/2013 18:36 CDT ; Life Cycle Status: Active ; Vocabulary: ICD-9-CM ; Comments: - Unspecified adjustment reaction Urge Incontinence (ICD-9-CM :788.31 ) Name of Problem: Urge Incontinence ; Recorder: STEVE ANDREA; Confirmation: Confirmed ; Classification: Medical ; Code: 788.31 ; Contributor System: [employer] ; Last Updated: 02/20/2010 8:39 CDT ; [...] PNED ; Probability: 0 ; Diagnosis Code: [id number] Triage Chief Complaint Description : see triage note Mode of Arrival ED : Private vehicle Track : Medical Languages : Taiwanese Treatments Prior to Arrival : None Is Patient Female and 13-50 no hysterectomy : No BOBBY MUNOZ RN - 08/24/2015 18:55 PORTABLE SAWYER Pain Assessment Pain Symptoms : Yes BOBBY MUNOZ RN - 08/24/2015 18:55 PORTABLE SAWYER Respiratory Airway : Patent Respirations : Unlabored Respiratory Pattern : Regular Oxygen Therapy : Room air Respiratory Detailed Assessment : Yes BOBBY MUNOZ RN - 08/24/2015 18:55 PORTABLE SAWYER Resp Detailed Respiratory Patient Stated Symptoms : None Distress : None Cough : Productive Sputum Amount : Scant Respiratory Note : body aches, sinus congestion, rhinorrhea, headache. BOBBY MUNOZ RN - 08/24/2015 18:55 PORTABLE SAWYER Cardiovascular Heart Rhythm : Regular Skin Color : Normal for ethnicity Skin Description : Dry Skin Temperature : Cool BOBBY MUNOZ RN - 08/24/2015 18:55 PORTABLE SAWYER Neurological Last Well Time Known : Not applicable Level of Consciousness : Alert Orientation : Appropriate for age Characteristics of Speech : Appropriate for age Neuro Patient Stated Symptoms : None Gait : Steady Swallowing Difficulty/Aspiration Risk : Cough BOBBY MUNOZ RN - 08/24/2015 18:55 PORTABLE SAWYER ED Psychosocial Affect/Behavior : Calm, Appropriate Domestic Abuse Concerns : None Behavioral Health Screen/Safety Assmt : No BOBBY MUNOZ RN - 08/24/2015 18:55 PORTABLE SAWYER Gastrointestinal Nutrition ED : Adequate BOBBY MUNOZ RN - 08/24/2015 18:55 PORTABLE SAWYER Musculoskeletal Fall Prevention Education Provided : Yes BOBBY MUNOZ RN - 08/24/2015 18:55 PORTABLE SAWYER Social Habits Exposure to Tobacco Smoke : Care provider denies smoking in home, Other: never Smoking Status : Never smoker Tobacco 2A : Unknown BOBBY MUNOZ RN - 08/24/2015 18:55 PORTABLE SAWYER Alcohol Use Grid Alcohol Use : No BOBBY MUNOZ RN - 08/24/2015 18:55 PORTABLE SAWYER Recreational Drug Use Grid Drug Use : None BOBBY MUNOZ RN - 08/24/2015 18:55 PORTABLE SAWYER Source: [facility] POWERCHART Document Id: [id number] PORTABLE SAWYER!53 ABLE SAWYER Bobby Munoz RPiliN. - 08/24/2015 6:36 PM CST ED Triage Assessment Document Has Been Updated ED Triage Assessment Entered On: 08/24/2015 18:43 PORTABLE SAWYER Performed On: 08/24/2015 18:36 PORTABLE SAWYER by BOBBY MUNOZ RN Reason For Visit (As Of: 08/24/2015 18:43:01 PORTABLE SAWYER) Problems(Active) BPH without urinary obstruction (ICD-9-CM :600.00 ) Name of Problem: BPH without urinary obstruction; Recorder: STEVE ANDREA CNP; Confirmation: Confirmed ; Classification: Medical ; Code: 600.00 ; Contributor System: [employer] ; Last Updated: 02/15/2010 10:00 CDT ; [...] Medical ; Code: 250.02 ; Contributor System: [employer] ; Last Updated: 07/24/2011 10:45 PORTABLE SAWYER ; Life Cycle Date: 12/05/2010 ; Life Cycle Status: Active ; Responsible Provider: STEVE ANDREA CNP; Vocabulary: ICD-9-CM Eczema (ICD-9-CM :692.9 ) Name of Problem: Eczema ; Recorder: STEVE ANDREA CNP; Confirmation: Confirmed ; Classification: Medical ; Code: 692.9 ; Contributor System: [employer] ; Last Updated: 01/25/2014 16:29 CDT ; [...] System: [employer] ; Last Updated: 07/29/2014 7:02 PORTABLE SAWYER ; Life Cycle Status: Active ; Responsible [...] System: [employer] ; Last Updated: 09/30/2012 15:06 PORTABLE SAWYER ; Life Cycle Date: 09/30/2012 ; Life [...] Code: 695.89 ; Last Updated: 07/14/2012 14:36 PORTABLE SAWYER ; Life Cycle Status: Active ; Responsible [...] System: [employer] ; Last Updated: 09/05/2010 9:56 PORTABLE SAWYER ; Life Cycle Date: 09/05/2010 ; Life [...] Vocabulary: ICD-9-CM ; Comments: 09/30/2013 11:ANOOP ISAAC GEOPHYSICAL PROSPECTING SURVEYOR onset unknown Ulcer of skin NOS (ICD-9-CM :707.9 ) Name of Problem: Ulcer of skin NOS ; Recorder: HALEIGH SCHULTZ CNP; Confirmation: Confirmed ; Classification: UPDATE NEEDED ; Code: 707.9 ; Contributor System: [employer] ; Last Updated: 09/18/2010 8:25 PORTABLE SAWYER ; Life Cycle Date: 09/18/2010 ; Life Cycle Status: Active ; Responsible Provider: HALEIGH SCHULTZ CNP; Vocabulary: ICD-9-CM ; Comments: 09/30/2013 11:ANOOP ISAAC GEOPHYSICAL PROSPECTING SURVEYOR onset unknown Unspecified Adjustment Reaction (ICD-9-CM :309.9 ) Name of Problem: Unspecified Adjustment Reaction ; Onset Date: 05/05/2013 ; Confirmation: Confirmed ; Classification: Medical ; Code: 309.9 ; Contributor System: [facility] ; Last Updated: 12/03/2013 18:36 CDT ; Life Cycle Status: Active ; Vocabulary: ICD-9-CM ; Comments: - Unspecified adjustment reaction Urge Incontinence (ICD-9-CM :788.31 ) Name of Problem: Urge Incontinence ; Recorder: STEVE ANDREA; Confirmation: Confirmed ; Classification: Medical ; Code: 788.31 ; Contributor System: [employer] ; Last Updated: 02/20/2010 8:39 CDT ; [...] PNED ; Probability: 0 ; Diagnosis Code: [id number] Triage Chief Complaint Description : Body aches, cough, headache, shakes, since 08/18/15. Information Given By : Patient Accompanied By : Alone Mode of Arrival ED : Private vehicle Track : Medical Languages : Taiwanese Patient Informed of Triage Location : Emergency department Vital Signs Assessed : Yes GCS Assessed : Yes Treatments Prior to Arrival : None Is Patient Female and 13-50 no hysterectomy : No BOBBY MUNOZ RN - 08/24/2015 18:36 PORTABLE SAWYER Vital Signs Temperature Core : 37.2 DegC(Converted [...] kg/m2 BOBBY MUNOZ RN - 08/24/2015 18:36 PORTABLE SAWYER Lois Coma Eye Opening Response [place] : Spontaneously Best Verbal Response [place] : Oriented Best Motor Response [place] : Obeys simple commands Lois Coma Score : 15 SERA MUNOZY Soumya RN - 08/24/2015 18:36 PORTABLE SAWYER Pain Assessment Pain Symptoms : Yes BOBBY MUNOZ RN - 08/24/2015 18:36 PORTABLE SAWYER Pain Scale Pain Scale Non-Verbal PainAD : Open SERA MUNOZY Soumya RN - 08/24/2015 18:36 PORTABLE SAWYER PAINAD Breathing : Normal breathing Negative vocalization : None Facial expression : Smiling or inexpressive Body language : Relaxed Consolability : No need to console PAINAD Score : 0 BOBBY MUNOZ RN - 08/24/2015 18:36 PORTABLE SAWYER Comfort Measures Comfort Measures Grid Positioning : Yes BOBBY MUNOZ RN - 08/24/2015 18:36 PORTABLE SAWYER ED Physician Notification Time ED Physician Notification Time : 08/24/2015 18:42 PORTABLE SAWYER BOBBY MUNOZ RN - 08/24/2015 18:36 PORTABLE SAWYER ERIN ERIN Level 1 : No ERIN Level 2 : No ERIN Level 3 : One BOBBY MUNOZ RN - 08/24/2015 18:36 PORTABLE SAWYER DCP GENERIC CODE Tracking Acuity : 5 -Non Urgent Tracking Group : [facility] ED MUNOZBOBBY Soumya RN - 08/24/2015 18:36 PORTABLE SAWYER Allergy (As Of: 08/24/2015 18:43:01 PORTABLE SAWYER) Allergies (Active) Cipro Estimated Onset Date: Unspecified ; Created By: STEVE ANDREA CNP; Reaction Status: Active ;Category: Drug ; Substance: Cipro ; Type: Allergy ; Updated By: STEVE ANDREA CNP; Reviewed Date: 08/24/2015 18:42 PORTABLE SAWYER Influenza Virus Vaccine Estimated Onset Date: Unspecified ; Reactions: diarrhea ; Created By: STEVE ANDREA CNP; Reaction Status: Active ; Category: Drug ; Substance: Influenza Virus Vaccine ; Type: Intolerance ; Updated By: STEVE ANDREA CNP; Reviewed Date: 08/24/2015 18:42 PORTABLE SAWYER ID Screen Drug Resistant Organism : No Travel Within Last 21 Days : No Contact with someone with Ebola : No BOBBY MUNOZ RN - 08/24/2015 18:36 PORTABLE SAWYER Immunizations Immunizations Current : Yes BOBBY MUNOZ RN - 08/24/2015 18:36 PORTABLE SAWYER Source: [facility] POWERCHART Document Id: [id number] PORTABLE SAWYER!61 ABLE SAWYER documented in this encounter Miscellaneous Notes Miscellaneous - Juliette Donaldson R.N. - 07/16/2016 2:18 PM CST Health Maintenance Reminder July 16, 2016 NOEMÍ LUNA [address] [employer] [phone] Dear NOEMÍ LUNA, This is a reminder that you are due for a Colonoscopy appointment: at [facility]. Please call the Clinic registration at to schedule an appointment with your primary provider. A pre-procedure physical needs to be performed prior to your procedure. Your colonoscopy willbe scheduled by your primary provider upon completion of the physical. If you had this done elsewhere, please notify the Endoscopy department [phone], to update your chart. We look forward to seeing you soon. Thank you for choosing the [facility] in [place]. Sincerely, JULIETTE DONALDSON Electronic Signature Electronically Signed By: JULIETTE DONALDSON RN On: July 16, 2016 This document has images extracted. Source: [facility] ImmuVen Document Id: [id number] Miscellaneous - Moraima Chase - 08/27/2015 10:19 AM CST Reminder Msg Document Contains Addenda Addendum by JULIETTE DONALDSON RN on July 16, 2016 14:18:45 PORTABLE SAWYER Third letter sent today. Addendum by MORAIMA CHASE on March 19, 2016 12:00:47 CDT second letter will be sent to patient March 2016 From: MORAIMA CHASE To: [place] Colonoscopy Pool; Sent: 08/27/2015 10:19:41 PORTABLE SAWYER Show up: 08/27/2015 10:19:00 PORTABLE SAWYER Subject: Reminder Msg Due Date/Time: 08/27/2015 10:19:00 PORTABLE SAWYER Please Remember to: Pt Due for 48 y.o. Colonoscopy Screening. Letter Will be sent to pt. aug 2015 PATIENT: ( ) Call Patient ( ) Ask Patient to ( ) ( ) Call Relative ( ) Schedule Patient ( ) ( ) Call for Cupola Tapper ( ) Follow up on Results ( ) Other: PROVIDER: ( ) Call Physician ( ) Call Pharmacist ( ) Call Lab ( ) Other: Special Instructions: Comments: Source: [facility] Im[employer]Ven Document Id: [id number] Electronically signed by Conversion, [facility] Fire Observer [id number] at 02/02/2017 9:27 AM CDT Miscellaneous - Conversion, Historical Provider Ser - 08/24/2015 8:32 PM PORTABLE SAWYER Coding Summary-Paper Based CODING DATE: 09/03/2015 FINAL [facility] STATUS: * Discharged to Home or Self [...] VERGARA Date Saved: 09/03/2015 09:43 am Source: [facility] [employer] Document Id: [id number] Miscellaneous - Nik Cisneros, R.N. - 08/24/2015 8:20 PM CST Valuables/Belongings Valuables/Belongings Entered On: 08/24/2015 20:21 PORTABLE SAWYER Performed On: 08/24/2015 20:20 PORTABLE SAWYER by NIK CISNEROS RN Valuables/Belongings Valuables/Belongings Grid Valuables with Patient Clothes, Patient Valuables : Coat, Pants, Shirt, Shoes, Undergarments Electronic Devices : Cell phone Jewelry : None Monetary Items : Wallet Personal Devices : None NIK CISNEROS RN - 08/24/2015 20:20 PORTABLE SAWYER Home Medication Disposition : None brought in with patient NIK CISNEROS RN - 08/24/2015 20:20 PORTABLE SAWYER [facility] Document Id: [id number] PORTABLE SAWYER!10 ABLE SAWYER Miscellaneous - Nik Cisneros RAugustine - 08/24/2015 6:28 PM CST Facility Charge Ticket 2.0 11.0 DX Facility Charge Ticket 2.0 11.0 DX Entered On: 08/24/2015 20:22 PORTABLE SAWYER Performed On: 08/24/2015 18:28 PORTABLE SAWYER by NIK CISNEROS RN Facility Charge Ticket [...] Nursing Notes ED Primary Assessment,08/24/15 18:45,BOBBY MUNOZ BLANKET WINDER OPERATOR Pain Assessment,08/24/15 20:20,NIK CISNEROS RN [facility] Nursing Assessment : Triage and 1-2 nursing assessments [facility] Disposition : Discharge Disposition RTF : discharge [facility] Total Points with Diagnosis Control : 7 [facility] Visit Level : 96090 Level 3 Treatments Prior to Arrival : None NIK CISNEROS RN - 08/24/2015 20:21 PORTABLE SAWYER Source: [facility] [employer] Document Id: [id number] PORTABLE SAWYER!19 ABLE SAWYER documented in this encounter Plan of Treatment Not on filedocumented as of this encounter Procedures Procedure Name Priority Date/Time Associated Diagnosis Comme nts GLUCOSE POCT, B Routine 08/24/2015 6:59 PM Result s for this PORTABLE SAWYER procedure are i n the results section. documented in this encounter Results (ABNORMAL) Glucose, POCT (08/24/2015 6:59 PM PORTABLE SAWYER) athologist Signature Glucose, POCT, 183 (H) 70 - 139 POWERCHART B MGDL Comment: AnalyzedBy [id number] Alexander Rosales Performed at Med Surg [address] [facility] [address] [place], [place] ??[address] Specimen Anatomical Collection Method Collection Time Receive d Time (Source) Location / / Volume Laterality Blood 08/24/2015 6:59 PM 5 6:59 PORTABLE SAWYER PM PORTABLE SAWYER Cierra Barker M.D. LAB POCT ORDERABLES-MANUAL Performing Organization Address City/State/ZIP Code Phon e Number POWERCHART documented in this encounter Visit Diagnoses Not on filedocumented in this encounter Additional Health Concerns Assessment Noted Time PHQ-9 Depression Total Score: 18 02/14/2013 9:53 AM CD T documented as of this encounter
--- OUTSIDE RECORDS SUMMARY | 2022-08-05 10:18 | XMS_ITS | Encounter Summary ---
:1960 Author Organization [facility] Address [address] [place] [address] Care Team Providers Name Role Phone Unavailable Primary Care Provider Unavailable Encounter Details Date Type Department Care Team Description 12/25/2014 Hospital Encounter [facility]X [facility] Cintia lindquist M.D. [address] [place] [phone] (Wo rk) Social History Tobacco Use [...] 04, 2017 08:05:05 CDT From: ANGEL NGUYEN ([place] Family Medicine Nurse Guajardo) To: CINTIA BULLOCK MD; Sent: 05/04/2017 08:05:05 CDT Subject: BP readings Addendum by ANGEL NGUYEN on May 04, 2017 08:04:48 CDT BP access: [employer], select bp tracker hyperlink in the middle of the page, enter patient's access codeof [id number], month 10, year 1959. This will bring you to a snap shot of bp readings. From: MICHAEL GAITAN To: [place] Family Medicine Nurse Guajardo; Sent: 05/02/2017 17:53:29 CDT Subject: *Phone Message Caller is: ( x ) Patient ( ) Mother ( ) Father ( ) Spouse ( ) Daughter ( ) Son ( ) Pharmacy ( ) Other: Physician: Pato Patient MRN #: Reason for Call: BP Readings Message: Patient called in to give the following BP readings: 05[facility]02[facility]17 [facility]pm [facility] - 05/02/17 [facility] 5:15 66/41. Patient states all are normal and would like you to view his readings at [facility] as he has advised to before. Advice/Action: [...] back cell phone number ( ) Source: [facility] POWERCHART Document Id: [id number] Miscellaneous - Rosetta Ramirez L.PPiliN. - 12/25/2014 [...] RAMIREZ LPN - 12/25/2014 13:28 CDT Source: [employer] Document Id: [id number] CDT!9 Miscellaneous - Rosetta Ramirez L.P.N. - [...] RAMIREZ LPN - 12/25/2014 13:19 CDT Source: [employer] Document Id: [id number] CDT!12 documented in this encounter Plan of Treatment Not on filedocumented as of this encounter Visit Diagnoses Not on filedocumented in this encounter Additional Health Concerns Assessment Noted Time PHQ-9 Depression Total Score: 18 02/14/2013 9:53 AM CD T documented as of this encounter
--- OUTSIDE RECORDS SUMMARY | 2022-08-05 10:18 | XMS_ITS | Encounter Summary ---
:1960 Author Organization [facility] Address [address] [place] [address] Care Team Providers Name Role Phone Unavailable Primary Care Provider Unavailable Encounter Details Date Type Department Care Team Description 12/25/2014 Hospital Encounter HX [facility] Cintia Cobb M.D. [address] [place] [phone] (Wo rk) Social History Tobacco Use [...] 2014 15:19:35 CDT From: OLIVIA BECERRA V ([place] Family Medicine Nurse [place]) To: CINTIA KILGORE [...] Lvl 9.7 mg/dL (8.6 - 10.0) Source: [facility] POWERCHART Document Id: [id number] Electronically signed by Conversion, [facility] Certified Bench Jeweler Technician [id number] at 02/01/2017 4:56 PM CDT Miscellaneous - Conversion, Historical Provider Ser - 12/25/2014 11:59 PM CDT Coding Summary-Paper Based CODING DATE: 12/28/2014 FINAL [facility] STATUS: [...] Revised Date Saved: 12/28/2014 10:54 am Source: [facility] [employer] Document Id: [id number] documented in this encounter Plan of Treatment [...] POWERCHART MMOLL HXeGFR (MDRD) >60 >=60 POWERCHART [id number] eGFR >60 >=60 POWERCHART Black/ [id number] Malawian Specimen (Source) Anatomical Collection Method Collection Time [...]
--- OUTSIDE RECORDS SUMMARY | 2022-08-05 10:18 | XMS_ITS | Encounter Summary ---
:1960 Author Organization [facility] Address [address] [place] [address] Care Team Providers Name Role Phone Unavailable Primary Care Provider Unavailable Encounter Details Date Type Department Care Team Description 12/18/2014 Hospital Encounter [facility] Song Cintia Copeland M.D. [address] [place] [phone] (Wo rk) Social History Tobacco Use [...] Coding Summary-Paper Based CODING DATE: 12/26/2014 FINAL [facility] STATUS: * Discharged to Home or [...] BLISS Date Saved: 12/26/2014 01:48 pm [facility] Document Id: [id number] Miscellaneous - Shawnee Haji, L.P.N. - 12/12/2014 3:09 PM CDT *General Message Document Contains Addenda Addendum by VINEET RAMIREZ LPN on 13 December 2014 14:53:34 CDT mailed note below to pt. Phone does not have voice mail.< Addendum by CINTIA KILGORE MD on 13 December 2014 13:44:56 CDT From: CINTIA KILGORE MD To: [place] Family Medicine Nurse Guajardo; Sent: 12/13/2014 13:44:56 CDT Subject: RE: *General Message Vitamin B was sent to the pharmacy at his last visit. He does not need Vitamin D. THanksCintia From: SHAWNEE HAJI LPN ([facility] Medicine Nurse Guajardo) To: CINTIA KILGORE MD; Sent: 12/12/2014 15:09:50 CDT Subject: *General Message Ed was looking for prescriptions for his B12 and his vitamin D3. His says he doesn't need to take the vitamin D due to his Flinistone vitamins have vitamin D in them? Source: [facility] Document Id: [id number] Electronically signed by Conversion, [facility] Slitting Machine Feeder [id number] at 02/01/2017 3:36 PM CDT documented in this encounter Plan of Treatment Not on filedocumented as of this encounter Procedures Procedure Name Priority Date/Time Associated Diagnosis Comme nts BASIC METABOLIC Routine 12/18/2014 12:50 PM Resul ts for this PANEL, S/P CDT procedure are i n the results section. documented in this encounter Results (ABNORMAL) BMP (Basic Metabolic Panel) (12/18/2014 12:50 PM CDT) [facility] gist Method Time Signature Anion Gap [...] MMOLL HXeGFR (MDRD) 28 (L) >=60 POWERCHART [id number] eGFR 34 (L) >=60 POWERCHART Black/ [id number] Filipino Specimen (Source) Anatomical Collection Method Collection Time [...]
--- OUTSIDE RECORDS SUMMARY | 2022-08-05 10:18 | XMS_ITS | Encounter Summary ---
:1960 Author Organization [facility] Address [address] [place] [address] Care Team Providers Name Role Phone Unavailable Primary Care Provider Unavailable Encounter Details Date Type Department Care Team Description 01/04/2015 Hospital Encounter [facility]X [facility] Cintia lindquist M.D. [address] [place] [phone] (Wo rk) Social History Tobacco Use [...] 01/04/2015 10:41 CDT by ANNE MARIE TUTTLE DAILY SALES AUDIT CLERK, RT Vitals/Ht/Wt Systolic Blood Pressure : 124 [...] LPN, RT - 01/04/2015 10:41 CDT Source: [employer] Document Id: [id number] CDT!12 documented in this encounter Plan of Treatment Not on filedocumented as of this encounter Visit Diagnoses Not on filedocumented in this encounter Additional Health Concerns Assessment Noted Time PHQ-9 Depression Total Score: 18 02/14/2013 9:53 AM CD T documented as of this encounter
--- OUTSIDE RECORDS SUMMARY | 2022-08-05 10:18 | XMS_ITS | Encounter Summary ---
:1960 Author Organization [facility] Address [address] [place] [address] Care Team Providers Name Role Phone Unavailable Primary Care Provider Unavailable Encounter Details Date Type Department Care Team Description 03/24/2015 Hospital Encounter HX [facility] Cintia Cobb M.D. [address] [place] [phone] (Wo rk) Social History Tobacco Use [...] 5.5 % A1C ( - <=5.6) Source: [facility] POWERCHART Document Id: [id number] Electronically signed by Conversion, [facility] Tong Setter [id number] at 02/01/2017 11:35 PM CDT documented in [...]
--- OUTSIDE RECORDS SUMMARY | 2022-08-05 10:18 | XMS_ITS | Encounter Summary ---
:1960 Author Organization [facility] Address [address] [place] [address] Care Team Providers Name Role Phone Unavailable Primary Care Provider Unavailable Encounter Details Date Type Department Care Team Description 04/14/2015 Hospital Encounter HX [facility] ED Alexandra Barker M.D. [address] [place] [address] (Wo rk) Social History Tobacco Use Types [...] 04/14/2015 5:42 PM CDT ED Discharge Instructions [address] [address] Name: NOEMÍ LUNA Date of : 1960 12:00 AM Visit Date: 04/14/2015 3:44 PM [facility] Number: [id number] Address: [address] [facility] [phone] Primary Care Provider: KEVIN KILGORE MD IMPORTANT: [facility] in [place] would like to thank you for allowing us to assist you with your healthcare needs. The following includes patient education materials and informationregarding your injury/illness. Diagnosis: Pain Chest Wall (CWP) Follow-Up Instructions: With: Address: When: KEVIN KILGORE [address] [place] [phone] Business (1) Within As Needed Comments: Your [...] as directed by your healthcare provider ?? [phone] [facility], [address] [place] [address], [place] [address]. All rights reserved. This information is not [...] if you dont have one. Go to [email or web address] and click on Create Your Account. Then, follow the directions to complete the online form. Youll be asked for your [facility] number which you can [...] Party/Relationship Date Time Provider Signature Date Time jyoti This document has images extracted. Please consider using [employer] for all your patient education needs. Source: [facility] [employer] Document Id: [id number] Ana Reeves RKevin. - 04/14/2015 5:42 PM CDT ED Depart Summary [facility] Emergency Department Clinical Discharge Summary PERSON INFORMATION Name NOEMÍ LUNA Age 54 Years 1960 12:00 AM Sex Male Language Cook Islander PCP KEVIN KILGORE MD Marital Status Visit Id Visit Reason Rib/trunk pain-swelling; back and rib pain Specialty Enc Type Emergency Med Service Emergency Medicine Referred by Track Group [facility] ED Discharge 04/14/2015 5:28 PM Tracking Id [id number] Checkout 04/14/2015 5:28 PM Checkin 04/14/2015 3:44 PM Acuity 3 -Urgent Dispo Type * Discharged to Home or Self Care Arrival 04/14/2015 3:44 PM Reg Status Complete LOS 000 01:44 Address: [address] [place] [phone] Comment: PROVIDER INFORMATION Provider Role Provider Contact Time ANA REEVES SHUTTLE THREADER Nurse 04/14/15 16:09 CIERRA BARKER MD ED Provider 04/14/15 16:12 DIAGNOSIS Pain Chest Wall (CWP) Comment: PATIENT EDUCATION INFORMATION Instructions: CHEST WALL STRAIN Follow up: With: Address: When: KEVIN NELSON[address] [address] Business (1) Within As Needed Comments: Source: [employer] Document Id: [id number] documented in this encounter ED Notes Ana [...] REEVES RN - 04/14/2015 17:34 CDT Source: [employer] Document Id: [id number] CDT!7 Ana Reeves R.N. - 04/14/2015 5:34 PM CDT ED Pain Assessment ED Pain Assessment Entered On: 04/14/2015 17:34 CDT Performed On: 04/14/2015 17:34 CDT by ANA REEVES RN Pain Assessment Pain Symptoms : Yes ANA REEVES RN - 04/14/2015 17:34 CDT Source: [employer] Document Id: [id number] CDT!3 Cierra Barker M.D. - 04/14/2015 4:27 [...] on 09/29/2012 at 52 years. Comments: 09/30/2012 ASSISTANT OFFICE MANAGER 15:06 STEVE COUCH CNP left Genital warts (078.19) Comments: 09/30/2013 ASSISTANT OFFICE MANAGER 11:47 ASSISTANT OFFICE MANAGER ANOOP GONZALEZ WIND TURBINE TECHNICIAN onset unknown Tinea pedis* (110.4) Comments: 09/30/2013 ASSISTANT OFFICE MANAGER 11:47 ANOOP MESSER WIND TURBINE TECHNICIAN onset unknown Tinea cruris. (110.3) Comments: 09/30/2013 ASSISTANT OFFICE MANAGER 11:47 ANOOP MESSER WIND TURBINE TECHNICIAN onset unknown. Surgical history: Cystoscopy ([id number]) on 12/26/2009 at 49 Years. Comments: 02/20/2010 08:36 - STEVE ANDREA CNP [place] / normal PSA, TOTAL SCREENING (G0103) on 12/26/2009 at 49 Years. Comments: 02/20/2010 08:38 - STEVE ANDREA CNP Done at [place] / Result: 1.55 Discectomy ([id number]) on 02/19/1989 at 28 Years. Comments: 12/28/2009 [...] PM This document has images extracted. Source: [facility] POWERCHART Document Id: [id number]} Ana Reeves RPiliN. - 04/14/2015 4:06 PM [...] Comments: 09/30/2013 11:46 - QUEVEDOIKE ROMANICA R WIND TURBINE TECHNICIAN onset unknown DM II (or NOS), uncontrolled (ICD-9-CM :250.02 ) Name of Problem: DM II (or NOS), uncontrolled ; Onset Date: 12/28/2009 ; Recorder: STEVE ANDREA CNP; Confirmation: Confirmed ; Classification: Medical ; Code: 250.02 ; Contributor System: [employer] AlphaChart ; Last Updated: 07/24/2011 10:45 ASSISTANT OFFICE MANAGER ; Life Cycle Date: 12/05/2010 ; Life [...] Comments: 09/30/2013 11:47 - ANOOP QUEVEDO R WIND TURBINE TECHNICIAN onset unknown Erectile dysfunction* (ICD-9-CM :607.84 ) Name of Problem: Erectile dysfunction* ; Recorder: STEVE ANDREA CNP; Confirmation: Confirmed ; Classification: Medical ; Code: 607.84 ; Contributor System: [employer] Alpha[employer] ; Last Updated: 12/28/2009 9:40 CDT ; Life Cycle Date: 12/28/2009 ; Life Cycle Status: Active ; Responsible Provider: STEVE ANDREA CNP; Vocabulary: ICD-9-CM ; Comments: 09/30/2013 11:46 - IKE QUEVEDOICA R WIND TURBINE TECHNICIAN onset unknown Flutter Atrial NOS (ICD-9-CM :427.32 ) Name of Problem: Flutter Atrial NOS ; Recorder: KEVIN KILGORE MD; Confirmation: Confirmed ; Classification: Medical ; Code: 427.32 ; Contributor System: PowerChart ; Last Updated: 07/29/2014 7:02 ASSISTANT OFFICE MANAGER ; Life Cycle Status: Active ; Responsible Provider: KEVIN KILGORE MD; Vocabulary: ICD-9-CM Flutter Atrial NOS (ICD-9-CM :427.32 ) Name of Problem: Flutter Atrial NOS ; Recorder: JOSEI CASTANEDA LPN, RT; Confirmation: Confirmed ; Classification: [...] System: PowerChart ; Last Updated: 09/30/2012 15:06 ASSISTANT OFFICE MANAGER ; Life Cycle Date: 09/30/2012 ; Life [...] Code: 695.89 ; Last Updated: 07/14/2012 14:36 ASSISTANT OFFICE MANAGER ; Life Cycle Status: Active ; Responsible [...] System: PowerChart ; Last Updated: 09/05/2010 9:56 ASSISTANT OFFICE MANAGER ; Life Cycle Date: 09/05/2010 ; Life [...] Vocabulary: ICD-9-CM ; Comments: 09/30/2013 11:ANOOP ISAAC WIND TURBINE TECHNICIAN onset unknown Ulcer of skin NOS (ICD-9-CM :707.9 ) Name of Problem: Ulcer of skin NOS ; Recorder: HALEIGH SCHULTZ CNP; Confirmation: Confirmed ; Classification: UPDATE NEEDED ; Code: 707.9 ; Contributor System: PowerChart ; Last Updated: 09/18/2010 8:25 ASSISTANT OFFICE MANAGER ; Life Cycle Date: 09/18/2010 ; Life Cycle Status: Active ; Responsible Provider: HALEIGH SCHULTZ CNP; Vocabulary: ICD-9-CM ; Comments: 09/30/2013 11:ANOOP ISAAC WIND TURBINE TECHNICIAN onset unknown Unspecified Adjustment Reaction (ICD-9-CM :309.9 ) Name of Problem: Unspecified Adjustment Reaction ; Onset Date: 05/05/2013 ; Confirmation: Confirmed ; Classification: Medical ; Code: 309.9 ; Contributor System: [facility]X_PR_UPLOAD ; Last Updated: 12/03/2013 18:36 CDT ; Life Cycle Status: Active ; Vocabulary: ICD-9-CM ; Comments: - Unspecified adjustment reaction Urge Incontinence (ICD-9-CM :788.31 ) Name of Problem: Urge Incontinence ; Recorder: STEVE ANDREA; Confirmation: Confirmed ; Classification: Medical ; Code: 788.31 ; Contributor System: [employer] ; Last Updated: 02/20/2010 8:39 CDT ; Life Cycle Date: 02/20/2010 ; Life Cycle Status: Active ; Responsible Provider: STEVE ANDREA CNP; Vocabulary: ICD-9-CM ; Comments: 09/30/2013 11:46 - ANOOP QUEVEDO WIND TURBINE TECHNICIAN onset unknown Diagnoses(Active) Rib/trunk pain-swelling Date: 04/14/2015 ; Diagnosis Type: Reason For Visit ; Confirmation: Complaint of ; Clinical Dx: Rib/trunk pain-swelling ; Classification: Medical ; Clinical Service: Emergency medicine ; Code: PNED ; Probability: 0 ; Diagnosis Code: [id number] Triage Chief Complaint Description : has had pain in ribs on both side that started thursday night after a massage ANA REEVES RN - 04/14/2015 16:15 CDT Mode of Arrival ED : Private vehicle Track : Medical Languages : Cook Islander Patient Informed of Triage Location : Emergency [...] ERIN DCP GENERIC CODE Tracking Group : [facility] ED Tracking Acuity : 3 -Urgent [...] REEVES RN - 04/14/2015 16:15 CDT Source: [employer] Document Id: [id number] CDT!5 documented in this encounter Miscellaneous Notes Miscellaneous - Ana Reeves, R.N. - 04/14/2015 5:34 PM CDT Valuables/Belongings Valuables/Belongings Entered On: 04/14/2015 17:34 CDT Performed On: 04/14/2015 17:34 CDT by ANA REEVES RN Valuables/Belongings Home Medication Disposition : None brought in with patient ANA REEVES RN - 04/14/2015 17:34 CDT Source: [facility] [employer] Document Id: [id number] CDT!3 Miscellaneous - Conversion, Historical Provider Ser - 04/14/2015 5:28 PM CDT Coding Summary-Paper Based CODING DATE: 04/16/2015 FINAL [place] [facility] STATUS: * Discharged to Home or [...] HEREDIA Date Saved: 04/16/2015 09:43 am Source: [employer] Document Id: [id number] Miscellaneous - Ana Reeves, R.N. - 04/14/2015 [...] Control : 6 Lynx Visit Level : 79462 Level 3 Treatments Prior to Arrival : None ANA REEVES RN - 04/14/2015 17:34 CDT Source: [facility] [employer] Document Id: [id number] CDT!18 documented in this encounter Plan of Treatment Not on filedocumented as of this encounter Visit Diagnoses Not on filedocumented in this encounter Additional Health Concerns Assessment Noted Time PHQ-9 Depression Total Score: 18 02/14/2013 9:53 AM CD T documented as of this encounter
--- OUTSIDE RECORDS SUMMARY | 2022-08-05 10:18 | XMS_ITS | Encounter Summary ---
:1960 Author Organization [facility] Address [address] [place] [address] Care Team Providers Name Role Phone Unavailable Primary Care Provider Unavailable Encounter Details Date Type Department Care Team Description 05/12/2015 Hospital Encounter HX [facility] ED Jessika Mehta , P.A.-C. [address] [place] [address] [phone] (Wo rk) Social History Tobacco [...] 05/12/2015 12:13 PM CDT ED Discharge Instructions [address] [address] Name: NOEMÍ LUNA Date of : 1960 12:00 AM Visit Date: 05/12/2015 9:24 AM [facility] Number: [id number] Address: P.Andrew Camp [address] [place] [phone] Primary Care Provider: KEVIN KILGORE MD IMPORTANT: [facility] in [place] would like to thank you for allowing [...] if you dont have one. Go to [email or web address] and click on Create Your Account. Then, follow the directions to complete the online form. Youll be asked for your [facility] number which you can find at the top of this document. ED Tests and Procedures: Order Status Culture Urine Ordered Helicobacter pylori IgG Ab-[facility] Ordered Thyroid Stimulating Hormone Completed CBC (includes [...] Democrat/Relationship Date Time Provider Signature Date Time Source: [facility] [employer] Document Id: [id number] Mark Thakkar R.N. - 05/12/2015 12:13 PM CDT ED Depart Summary [facility] Emergency Department Clinical Discharge Summary PERSON INFORMATION Name CARLYLE NOEMÍ Jim Age 54 Years 1960 12:00 AM Sex Male Language Costa Rican PCP KEVIN KILGORE MD Marital Status Visit Id Visit Reason Weakness or fatigue; Hyperglycemia; personal Specialty Enc Type Emergency Med Service Emergency Medicine Referred by Track Group [facility] ED Discharge 05/12/2015 12:13 PM Tracking Id [id number] Checkout 05/12/2015 12:13 PM Checkin 05/12/2015 9:24 AM Acuity 3 -Urgent Dispo Type Left Against Medical Advice Arrival 05/12/2015 9:24 AM Reg Status Complete LOS 000 02:49 Address: [address] [place] [phone] Comment: PROVIDER INFORMATION Provider Role Provider Contact Time JESSIKA RICO ED Provider 05/12/15 09:42 MARK THAKKAR SWIMMING POOL SERVICEPERSON Nurse 05/12/15 10:21 DIAGNOSIS Anemia NOS; Bleeding Gastrointestinal (GI) Obscure; Diabetes Mellitus Type 2; Gastritis NOS Comment: PATIENT EDUCATION INFORMATION Instructions: Follow up: Source: [employer] Document Id: [id number] documented in this encounter ED Notes Mark [...] HERCULES RN - 05/12/2015 12:00 CDT Source: [employer] Document Id: [id number] CDT!8 Mark Thakkar R.N. - 05/12/2015 12:00 PM CDT ED Pain Assessment ED Pain Assessment Entered On: 05/12/2015 12:00 CDT Performed On: 05/12/2015 12:00 CDT by MARK THAKKAR RN Pain Assessment Pain Symptoms : Yes MARK THAKKAR RN - 05/12/2015 12:00 CDT Source: [facility] POWERCHART Document Id: [id number] CDT!3 Mark Thakkar R.N. 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 SUPERVISOR ; Life Cycle Date: 12/05/2010 ; Life [...] System: PowerChart ; Last Updated: 07/29/2014 7:02 TRAFFIC CONTROL SUPERVISOR ; Life Cycle Status: Active ; Responsible [...] System: PowerChart ; Last Updated: 09/30/2012 15:06 TRAFFIC CONTROL SUPERVISOR ; Life Cycle Date: 09/30/2012 ; Life Cycle Status: Active ; Responsible Provider: STEVE ANDREA CNP; Vocabulary: ICD-9-CM ; Comments: 09/30/2012 15:06 - STEVE ANDREA CNP left Genital warts (ICD-9-CM :078.19 ) Name of Problem: Genital warts ; Recorder: MARILUZ FRAGA MD; Confirmation: Confirmed ; Classification: UPDATE NEEDED ; Code: 078.19 ; Contributor System: [employer]; Last Updated: 02/11/2013 16:19 CDT ; Life [...] Code: 695.89 ; Last Updated: 07/14/2012 14:36 TRAFFIC CONTROL SUPERVISOR ; Life Cycle Status: Active ; Responsible [...] System: PowerChart ; Last Updated: 09/05/2010 9:56 TRAFFIC CONTROL SUPERVISOR ; Life Cycle Date: 09/05/2010 ; Life Cycle Status: Active ; Responsible Provider: STEVE ANDREA CNP; Vocabulary: ICD-9-CM ; Comments: 09/30/2013 11:ANOOP ISAAC EXECUTOR OF ESTATE onset unknown Optic disc cupping (ICD-9-CM :377.14 [...] Vocabulary: ICD-9-CM ; Comments: 09/30/2013 11:ANOOP ISAAC EXECUTOR OF ESTATE onset unknown Ulcer of skin NOS (ICD-9-CM :707.9 ) Name of Problem: Ulcer of skin NOS ; Recorder: HALEIGH SCHULTZ CNP; Confirmation: Confirmed ; Classification: UPDATE NEEDED ; Code: 707.9 ; Contributor System: [employer] ; Last Updated: 09/18/2010 8:25 TRAFFIC CONTROL SUPERVISOR ; Life Cycle Date: 09/18/2010 ; Life Cycle Status: Active ; Responsible Provider: HALEIGH SCHULTZ CNP; Vocabulary: ICD-9-CM ; Comments: 09/30/2013 11:Kenneth Valdivia QUEVEDOANOOP ROMAN EXECUTOR OF ESTATE onset unknown Unspecified Adjustment Reaction (ICD-9-CM :309.9 ) Name of Problem: Unspecified Adjustment Reaction ; Onset Date: 05/05/2013 ; Confirmation: Confirmed ; Classification: Medical ; Code: 309.9 ; Contributor System: [facility]X_[facility]_UPLOAD ; Last Updated: 12/03/2013 18:36 CDT ; Life Cycle Status: Active ; Vocabulary: ICD-9-CM ; Comments: - Unspecified adjustment reaction Urge Incontinence (ICD-9-CM :788.31 ) Name of Problem: Urge Incontinence ; Recorder: STEVE ANDREA; Confirmation: Confirmed ; Classification: Medical ; Code: 788.31 ; Contributor System: Telnex[employer]Chart ; Last Updated: 02/20/2010 8:39 CDT ; Life Cycle Date: 02/20/2010 ; Life Cycle Status: Active ; Responsible Provider: STEVE ANDREA CNP; Vocabulary: ICD-9-CM ; Comments: 09/30/2013 11:46 Shea QUEVEDOROHITANOOP R EXECUTOR OF ESTATE onset unknown Diagnoses(Active) Hyperglycemia Date: 05/12/2015 ; Diagnosis Type: Reason For Visit ; Confirmation: Complaint of ; Clinical Dx: Hyperglycemia ; Classification: Medical ; Clinical Service: Emergency medicine ; Code: PNED; Probability: 0 ; Diagnosis Code: [id number] Weakness or fatigue Date: 05/12/2015 ; Diagnosis Type: Reason For Visit ; Confirmation: Confirmed ; Clinical Dx: Weakness or fatigue ; Classification: Medical ; Clinical Service: Emergency medicine ; Code: PNED ; Probability: 0 ; Diagnosis Code: [id number] Triage Chief Complaint Description : see triage Information Given By : Patient Accompanied By : Alone Mode of Arrival ED : Private vehicle Track : Medical Languages : [place]ican Patient Informed of Triage Location : Emergency [...] Acuity : 3 -Urgent Tracking Group : [facility] ED MARK THAKKAR RN - 05/12/2015 9:48 CDT Allergy (As Of: 05/12/2015 10:02:57 CDT) Allergies (Active) Cipro Estimated Onset Date: Unspecified ; Created By: STEVE NADREA CNP; Reaction Status: Active ;Category: Drug ; [...] THAKKAR RN - 05/12/2015 9:48 CDT Source: [facility] POWERCHART Document Id: [id number] CDT!77 Jessika Mehta P.A.-C. - 05/12/2015 9:45 [...] on 09/29/2012 at 52 years. Comments: 09/30/2012 TRAFFIC CONTROL SUPERVISOR 15:06 TRAFFIC CONTROL SUPERVISOR - STEVE ANDREA ORCHARD MANAGER left Genital warts (078.19) Comments: 09/30/2013 TRAFFIC CONTROL SUPERVISOR 11:47 TRAFFIC CONTROL SUPERVISOR - QUEVEDO, ANOOP R EXECUTOR OF ESTATE onset unknown Tinea pedis* (110.4) Comments: 09/30/2013 TRAFFIC CONTROL SUPERVISOR 11:47 TRAFFIC CONTROL SUPERVISOR - ANOOP QUEVEDO EXECUTOR OF ESTATE onset unknown Tinea cruris. (110.3) Comments: 09/30/2013 TRAFFIC CONTROL SUPERVISOR 11:47 TRAFFIC CONTROL SUPERVISOR ANOOP GONZALEZ EXECUTOR OF ESTATE onset unknown. Surgical history: Cystoscopy ([id number]) on 12/26/2009 at 49 Years. Comments: 02/20/2010 08:36 - STEVE ANDREA ORCHARD MANAGER [place] [facility] / normal PSA, TOTAL SCREENING (G0103) on 12/26/2009 at 49 Years. Comments: 02/20/2010 08:38 - STEVE ANDREA ORCHARD MANAGER Done at [place] / Result: 1.55 Discectomy ([id number]) on 02/19/1989 at 28 Years. Comments: 12/28/2009 09:38 STEVE WELSH ORCHARD MANAGER lumbar L4-L5. Family history: Diabetes mellitus Mother [...] Once, Launch Orders Laboratory: Helicobacter pylori IgG Ab-[facility] (Order Processing): Stat, 05/12/2015 10:48 CDT, Once, [...] Absolute 4.64 10(9)/L Lymph Absolute 1.63 x10(9)/L Holmes Absolute 0.58 x10(9)/L Eos Absolute 0.15 x10(9)/L [...] AMA. Disposition: Discharged: Left AMA. Prescriptions: Prescription [facility]: PriLOSEC 40 mg oral delayed release [...] MCNEILL MD On: 05/12/2015 01:57 PM Source: [facility] POWERCHART Document Id: [id number]} Mark Thakkar R.N. - 05/12/2015 9:33 AM [...] Medical ; Code: 600.00 ; Contributor System: [employer] ; Last Updated: 02/15/2010 10:00 CDT ; [...] System: PowerChart ; Last Updated: 07/24/2011 10:45 TRAFFIC CONTROL SUPERVISOR ; Life Cycle Date: 12/05/2010 ; Life [...] System: PowerChart ; Last Updated: 07/29/2014 7:02 TRAFFIC CONTROL SUPERVISOR ; Life Cycle Status: Active ; Responsible [...] System: PowerChart ; Last Updated: 09/30/2012 15:06 TRAFFIC CONTROL SUPERVISOR ; Life Cycle Date: 09/30/2012 ; Life [...] Comments: 09/30/2013 11:47 - QUEVEDO ANOOP Mora EXECUTOR OF ESTATE onset unknown Hyperlipidemia (ICD-9-CM :272.4 ) Name [...] Code: 695.89 ; Last Updated: 07/14/2012 14:36 TRAFFIC CONTROL SUPERVISOR ; Life Cycle Status: Active ; Responsible [...] System: PowerChart ; Last Updated: 09/05/2010 9:56 TRAFFIC CONTROL SUPERVISOR ; Life Cycle Date: 09/05/2010 ; Life Cycle Status: Active ; Responsible Provider: STEVE ANDREA CNP; Vocabulary: ICD-9-CM ; Comments: 09/30/2013 11:ANOOP ISAAC R EXECUTOR OF ESTATE onset unknown Optic disc cupping (ICD-9-CM :377.14 [...] Medical ; Code: 110.3 ; Contributor System: [employer] ; Last Updated: 06/01/2013 9:06 CDT ; Life Cycle Date: 06/01/2013 ; Life Cycle Status: Active ; Responsible Provider: MARILUZ FRAGA MD; Vocabulary: ICD-9-CM ; Comments: 09/30/2013 11:IKE ISAACICA RLPN onset unknown Tinea pedis* (ICD-9-CM :110.4 ) Name of Problem: Tinea pedis* ; Recorder: MARILUZ FRAGA MD; Confirmation: Confirmed ; Classification: Medical ; Code: 110.4 ; Contributor System: [employer] ; Last Updated: 02/02/2014 8:24 CDT ; Life Cycle Date: 06/01/2013 ; Life Cycle Status: Active ; Responsible Provider: MARILUZ FRAGA MD; Vocabulary: ICD-9-CM ; Comments: 09/30/2013 11:IKE ISAACICA R EXECUTOR OF ESTATE onset unknown Ulcer of skin NOS (ICD-9-CM :707.9 ) Name of Problem: Ulcer of skin NOS ; Recorder: HALEIGH SCHULTZ CNP; Confirmation: Confirmed ; Classification: UPDATE NEEDED ; Code: 707.9 ; Contributor System: [employer] ; Last Updated: 09/18/2010 8:25 TRAFFIC CONTROL SUPERVISOR ; Life Cycle Date: 09/18/2010 ; Life Cycle Status: Active ; Responsible Provider: HALEIGH SCHULTZ CNP; Vocabulary: ICD-9-CM ; Comments: 09/30/2013 11:47 - ANOOP QUEVEDO EXECUTOR OF ESTATE onset unknown Unspecified Adjustment Reaction (ICD-9-CM :309.9 ) Name of Problem: Unspecified Adjustment Reaction ; Onset Date: 05/05/2013 ; Confirmation: Confirmed ; Classification: Medical ; Code: 309.9 ; Contributor System: [facility]_HX_PR_UPLOAD ; Last Updated: 12/03/2013 18:36 CDT ; Life Cycle Status: Active ; Vocabulary: ICD-9-CM ; Comments: - Unspecified adjustment reaction Urge Incontinence (ICD-9-CM :788.31 ) Name of Problem: Urge Incontinence ; Recorder: STEVE ANDREA; Confirmation: Confirmed ; Classification: Medical ; Code: 788.31 ; Contributor System: [employer] ; Last Updated: 02/20/2010 8:39 CDT ; Life Cycle Date: 02/20/2010 ; Life Cycle Status: Active ; Responsible Provider: STEVE ANDREA CNP; Vocabulary: ICD-9-CM ; Comments: 09/30/2013 11:46 - ANOOP QUEVEDO EXECUTOR OF ESTATE onset unknown Diagnoses(Active) Hyperglycemia Date: 05/12/2015 ; Diagnosis Type: Reason For Visit ; Confirmation: Complaint of ; Clinical Dx: Hyperglycemia ; Classification: Medical ; Clinical Service: Emergency medicine ; Code: PNED; Probability: 0 ; Diagnosis Code: [id number] Triage Chief Complaint Description : 54 yo male presents to the ED via private vehicle with c/o feeling more fatigue, c/o having high blood surgar levels 120-130's, and intermittent dizziness. Information Given By : Patient Accompanied By : Alone Mode of Arrival ED : Private vehicle Track : Medical Languages : [place] Vital Signs Assessed : Yes GCS Assessed [...] 9:33 CDT Lois Coma Eye Opening Response [place] : Spontaneously Best Verbal Response Lois : Oriented Best Motor Response Lois : Obeys simple commands [place] Coma Score : 15 MARK THAKKAR RN [...] Acuity : 3 -Urgent Tracking Group : [facility] ED MARK THAKKAR RN - 05/12/2015 [...] THAKKAR RN - 05/12/2015 9:33 CDT Source: [employer] Document Id: [id number] CDT!58 documented in this encounter Miscellaneous Notes Miscellaneous - Conversion, Historical Provider Ser - 05/12/2015 12:13 PM CDT Coding Summary-Paper Based CODING DATE: 05/21/2015 FINAL [facility] STATUS: Left Against Medical Advice PAYOR: Medicaid [...] HEREDIA Date Saved: 05/21/2015 04:09 pm Source: [employer] Document Id: [id number] [place] - Mark Thakkar R.N. - 05/12/2015 12:00 PM CDT Valuables/Belongings Valuables/Belongings Entered On: 05/12/2015 12:01 CDT Performed On: 05/12/2015 12:00 CDT by MARK THAKKAR RN Valuables/Belongings Belongings Sent Home With : ALL BELONGINGS SENT HOME WITH PATIENT Home Medication Disposition : None brought in with patient MARK THAKKAR RN - 05/12/2015 12:00 CDT [facility] Document Id: [id number] CDT!4 Miscellaneous - Mark Thakkar R.N. - [...] Control : 13 Lynx Visit Level : 15023 Level 5 Treatments Prior to Arrival : None MARK THAKKAR RN - 05/12/2015 12:01 CDT Chief Complaint 11.0 Reason For Visit Category : Gastrointestinal TVL Calculation : 12 ED Chief Complaint Gastrointestinal 11.0 : Abdominal pain TVL for Facility Charge Ticket Dx : Level 4 MARK THAKKAR RN - 05/12/2015 12:01 CDT [facility] Document Id: [id number] CDT!23 documented in this encounter Plan of [...] - 139 POWERCHART B MGDL Comment: AnalyzedBy [id number] Ariane Tovar Performed at Med Surg [address] [facility] [address] [place], [place] ??[address] Specimen Anatomical Collection Method Collection Time Receive d Time (Source) Location / / Volume Laterality Blood 05/12/2015 11:57 05/12/2015 AM CDT 11:57 AM CDT Jessika Mehta P.A.-C. LAB POCT ORDERABLES-MANUAL Performing Organization Address City/State/ZIP Code Phon e Number POWERCHART (ABNORMAL) Urinalysis, Complete, Includes Microscopic (05/12/2015 11:18 AM CDT) [facility] gist Method Time Signature HXUr Color Yellow Colorless POWERCHART Clarity Clear Clear POWERCHART Glucose Negative Negative POWERCHART MGDL HXBILIRUBIN Small (A) Negative POWERCHART Ketones, QL(U) Trace (A) Negative POWERCHART MGDL Specific 1.015 POWERCHART [place], POCT, U pH, POCT, Urine 5.0 <5.0 [...] Phon e Number POWERCHART HELICOBACTER PYLORI IGG AB[facility] (05/12/2015 10:50 AM CDT) athologist Signature HXH pylori Negative Negative POWERCHART IgG-[place] HXH pylori IgG 3.21 POWERCHART Idx-[place] Comment: Results with Index Values of <8.95 are n egative. Test Performed by: [address] [address] Shipping And Receiving Specialist: Rene Gomez II, M.D., Ph.D. Specimen (Source) Anatomical Collection Method Collection Time Re ceived Time Location / / Volume Laterality Blood 05/12/2015 10:50 AM CDT Jessika Mehta P.A.-C. LAB HISTORICAL ORDERS Performing Organization Address City/[facility]/ZIP Code Phon e Number POWERCHART Automated Differential [...] P.A.-C. LAB BLOOD ADD-ON Performing Organization Address City/[facility] Code Phon e Number POWERCHART (ABNORMAL) CBC with Differential (05/12/2015 10:25 AM CDT) [facility] gist Method Time Signature HXDifferential? Auto POWERCHART Leukocytes 7.0 3.5 - 10.5 POWERCHART X109L Erythrocytes 2.65 (L) 4.32 - POWERCHART 5.72 U0385T Hemoglobin 8.3 (L) 13.5 - POWERCHART 17.5 [...] Simons. LAB BLOOD ADD-ON Performing Organization Address City/[facility]/ZIP Code Phon e Number POWERCHART (ABNORMAL) CMP (Comprehensive Metabolic Panel) (05/12/2015 10:25 AM CDT) [facility] gist Method Time Signature Anion Gap [...] POWERCHART GDL HXeGFR (MDRD) >60 >=60 POWERCHART [id number] 2 eGFR Black/ >60 >=60 POWERCHART Alger[place] [id number] 2 Specimen (Source) Anatomical Collection Method Collection Time Re ceived Time Location / / Volume Laterality Blood 05/12/2015 10:25 AM CDT Jessika Mehta P.A.-C. LAB BLOOD ADD-ON Performing Organization Address City/State/ZIP Code Phon e Number POWERCHART (ABNORMAL) Glucose, POCT (05/12/2015 9:31 AM CDT) athologist Signature Glucose, POCT, 193 (H) 70 - 139 POWERCHART B MGDL Comment: AnalyzedBy [id number] Ariane Tovar Performed at Med Surg [address] [place] [address] [place], [place] ??[address] Specimen Anatomical Collection Method Collection Time Receive [...]
--- OUTSIDE RECORDS SUMMARY | 2022-08-05 10:18 | XMS_ITS | Encounter Summary ---
:1960 Author Organization [facility] Address [address] [place] [address] Care Team Providers Name Role Phone Unavailable Primary Care Provider Unavailable Encounter Details Date Type Department Care Team Description 01/16/2015 Hospital Encounter HX [facility] Cintia Jorgensen M.D. [address] [place] [phone] (Wo rk) Social History Tobacco Use [...] Refills: 1 Substitutions Allowed Route To Pharmacy [id number] Signed by CINTIA KILGORE MD 02/06/2015 16:03:30 From: OLIVIA BECERRA V To: CINTIA KILGORE MD; OLIVIA BECERRA V; Sent: 02/06/2015 10:11:39 CDT Subject: Med Management On hold pending signature Order:metoprolol (Metoprolol Tartrate 25 mg oral tablet) 0.5 tab(s) PO 2xDay Qty: 90 tab(s) Duration: 90 day(s) Refills: 1 Substitutions Allowed Route To [id number] Documented Discontinue:metoprolol (Metoprolol Tartrate) Signed by OLIVIA BECERRA V 02/06/2015 10:09:27 Pt seen 01/09. BP was 144/87. Had nurse BP visit 01/16 w/ BP 158/82 & 149/87. Unclear if dosing forthis is to be changed. Had been 25mg BID prior to surgery. Now 12.5 mg BID. Please advise Source: [facility] POWERCHART Document Id: [id number] Miscellaneous - Shawnee Haji, L.P.N. - 01/16/2015 5:09 PM CDT Ambulatory Vitals Height Weight Ambulatory Vitals Height Weight Entered On: 01/16/2015 17:09 CDT Performed On: 01/16/2015 17:09 CDT by SHAWNEE HAJI HARNESS RACING HANDICAPPER Vitals/Ht/Wt Systolic Blood Pressure : 149 mmHg (HI) Diastolic Blood Pressure : 87 mmHg NIBP Mean : 108 mmHg BP Location : Right upper extremity Blood Pressure Cuff Size : Large Height : 185 cm(Converted to: 6 ft 1 inch(es), 73 inch(es)) SHAWNEE HAJI LPN - 01/16/2015 17:09 CDT Source: [employer] Document Id: [id number] CDT!8 Miscellaneous - Shawnee Haji LPiliP.N. - [...] HAJI LPN - 01/16/2015 16:26 CDT Source: [employer] Document Id: [id number] CDT!7 documented in this encounter Plan of Treatment Not on filedocumented as of this encounter Visit Diagnoses Not on filedocumented in this encounter Additional Health Concerns Assessment Noted Time PHQ-9 Depression Total Score: 18 02/14/2013 9:53 AM CD T documented as of this encounter
--- OUTSIDE RECORDS SUMMARY | 2022-08-05 10:18 | XMS_ITS | Encounter Summary ---
:1960 Author Organization [facility] Address [address] [place] [address] Care Team Providers Name Role Phone Unavailable Primary Care Provider Unavailable Encounter Details Date Type Department Care Team Description 03/24/2015 Hospital Encounter H[facility] Cintia Aguirre M.D. [address] [place] [phone] (Wo rk) Social History Tobacco Use [...] TALI TORRES On: 03/24/2015 10:48 AM Source: [facility] POWERCHART Document Id: [id number] documented in this encounter Miscellaneous Notes Miscellaneous [...] on any further orders Thanks Anoop Source: [facility] Document Id: [id number] Miscellwalter - Anoop Mujica LPiliP.NPili - 03/24/2015 [...] MUJICA LPN - 03/24/2015 11:42 CDT Source: [employer] Document Id: [id number] CDT!10 Lulycellaneous - Anoop Mujica L.P.NPili - [...] MUJICA LPN - 03/24/2015 10:27 CDT Source: [employer] Document Id: [id number] CDT!15 documented in this encounter Plan of Treatment Not on filedocumented as of this encounter Visit Diagnoses Not on filedocumented in this encounter Additional Health Concerns Assessment Noted Time PHQ-9 Depression Total Score: 18 02/14/2013 9:53 AM CD T documented as of this encounter
--- OUTSIDE RECORDS SUMMARY | 2022-08-05 10:18 | XMS_ITS | Encounter Summary ---
:1960 Author Organization [facility] Address [address] [place] [address] Care Team Providers Name Role Phone Unavailable Primary Care Provider Unavailable Encounter Details Date Type Department Care Team Description 01/09/2015 Hospital Encounter HX [facility] Cintia Aguirre M.D. [address] [place] [phone] (Wo rk) Social History Tobacco Use [...] I would appreciate the guidance of his veterans adviser. We will arrange this appointment. 3. Hypertension [...] 09:44 PM Source: [facility] POWERCHART Document Id: [id number] documented in this encounter Miscellaneous Notes Miscellaneous - Cintia Cobb M.D. - 01/09/2015 6:56 PM CDT Ambulatory Patient Summary [address] [place] [phone] Visit Information Name: LAZ LUNA [facility] Number: [id number] Current Date: 01/09/2015 18:56:56 Physicians [...] Appointments Date Time Location Provider 01/16/2015 13:15 [facility] Urology Gonzalez MENDEZ, Rayna Posadas Attention: Contact your local Clinic if further appointment detail needed. Your Goals/Additional instructions: Future Appointment: nurse visit BP check 1 week Lab: _ Radiology: _ Need Prior Auth: _ NO Prior Auth: _ Consult: _ Release of MR_ PHI_ Source: [facility] POWERCHART Document Id: [id number] Miscellaneous - Cintia Cobb M.D. - 01/09/2015 6:56 PM CDT Ambulatory Discharge Medication List [address] [place] [phone] Visit Information Name: LAZ LUNA [facility] Number: [id number] Visit Date: 01/09/2015 18:56:55 Attending [...] MD Signed On:09-JAN-2015 18:55:13 Additional Information: Source: [facility] POWERCHART Document Id: [id number] Miscellaneous - Rosetta Ramirez L.P.N. 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
--- OUTSIDE RECORDS SUMMARY | 2022-08-05 10:18 | XMS_ITS | Encounter Summary ---
:1960 Author Organization [facility] Address [address] [place] [address] Care Team Providers Name Role Phone Unavailable Primary Care Provider Unavailable Encounter Details Date Type Department Care Team Description 05/21/2015 Hospital Encounter HX [facility] Cintia Cobb M.D. [address] [place] [phone] (Wo rk) Social History Tobacco Use [...] ABBOTT RN on 27 July 2015 07:52:20 PARACHUTIST/COMBATANT DIVER QUALIFIED returned request back to pharmacy to let them know pt can't switch Addendum by CINTIA KILGORE MD on 27 July 2015 07:33:59 PARACHUTIST/COMBATANT DIVER QUALIFIED From: CINTIA KILGORE MD To: FERNY Alexander for Readmission; Sent: 07/27/2015 07:33:59 PARACHUTIST/COMBATANT DIVER QUALIFIED Subject: RE: B12 He needs to stay on shots since he has had gastric bypass surgery. Pills are not appropriate for himbecause he no longer has the portion of the stomach that absorbs the Vit B12. ThanksCintia From: SHIRLENE ABBOTT RN (FERNY Risk for Readmission) To: CINTIA KILGORE MD; SHIRLENE ABBOTT RN; Sent: 07/26/2015 14:46:45 PARACHUTIST/COMBATANT DIVER QUALIFIED Subject: B12 On hold pending signature Discontinue:cyanocobalamin (cyanocobalamin 1000 mcg/mL injectable solution) 1 mL Subcut. Monthly vitamin B12 deficiency Qty: 4 mL Refills: 3 Substitutions Allowed Route To Pharmacy - [facility] #[id number] Pt would like to switch to oral pills from injection if appropriate for him. Unsure how that switches over so did not propose. [facility] pharm request Source: [facility] POWERCHART Document Id: [id number] Electronically signed by Conversion, [facility] Upstream Biomanufacturing Technician [id number] at 02/02/2017 7:04 PM CDT Miscellaneous - [...] on 22 May 2015 09:57:12 CDT From: CINTIA KILGORE MD To: SHIRLENE ABBOTT RN; Sent: 05/22/2015 09:57:12 CDT Subject: RE: Blood sugar readings He can start checking 2-3 mornings a week. Cintia Segura From: SHIRLENE ABBOTT RN To: CINTIA KILGORE MD; SHIRLENE ABBOTT RN; Sent: 05/22/2015 08:00:39 CDT Subject: Blood sugar readings Ed would like to know how long to continue blood sugar readings? A1C 5.5 on 03-24-15. [phone] or [facility] [phone] Source: [employer] Document Id: [id number] Electronically signed by Conversion, [employer] Upstream Biomanufacturing Technician [id number] at 02/02/2017 7:04 PM CDT Miscellaneous - Cintia Cobb M.D. - 05/22/2015 6:39 AM CDT Results Notification From: CINTIA KILGORE MD To: [facility] Season[facility] Sprayer/Referrals; Sent: 05/22/2015 06:39:10 CDT Show up: 05/22/2015 06:39:00 CDT Subject: Results Notification Please let patient know that his hemoglobin is 9, so it continues to go up. He should continue his iron. We should recheck it in 2 weeks. ThanksCintia Results: Date Result Name Ind Value Ref Range 05/21/2015 18:36 Hgb (L) 9.0 g/dL (13.5 - 17.5) Source: [employer] Document Id: [id number] Electronically signed by Conversion, [employer] Upstream Biomanufacturing Technician [id number] at 02/02/2017 7:04 PM CDT documented in this encounter Plan [...]
--- OUTSIDE RECORDS SUMMARY | 2022-08-05 10:18 | XMS_ITS | Encounter Summary ---
:1960 Author Organization [facility] Address [address] [place] [address] Care Team Providers Name Role Phone Unavailable Primary Care Provider Unavailable Encounter Details Date Type Department Care Team Description 01/16/2015 Hospital Encounter HX [facility] Charleen Roth M.D. [address] [place] [phone] (Wo rk) Social History Tobacco Use Types [...] Roth M.D. - 01/16/2015 1:18 PM CDT [id number] A 54-year-old gentleman with a long history [...] that time. He was seen at the [facility] and he tells me that they [...] ROTH MD On: 01/30/2015 09:48 AM Source: [facility] MHSDOLBEYNONRADSYS Document Id: [id number] documented in this encounter Miscellaneous Notes Miscellaneous - Angela Terry R.N. - 01/30/2015 4:42 PM CDT Provider Letter 30 Jan 2015 NOEMÍ LUNA [address] [place] [phone] Dear NOEMÍ LUNA, I am pleased to report that your results from the following diagnostic test(s) are normal. Please follow up with us as we discussed during your visit or sooner if you have any concerns. If you have questions or concerns, please do not hesitate to call our office at [phone]. Result Name Current Result [facility] 444 01/16/2015 240-950 - Sincerely, TRINI TERRY Electronic Signature Electronically Signed By: TRINI TERRY RN On: 30 Jan 2015 This document has images extracted. Source: [facility] POWERCHART Document Id: [id number] Electronically signed by Dayami, [facility] Safety Representative [id number] at 02/01/2017 7:34 PM CDT Telephone Encounter - Conversion, Historical Provider Ser - 01/30/2015 10:01 AM CDT Outside Referral [facility] Entered by JESSIKA PAREKH on 30 Jan 2015 10:01:05 CDT Thank you for your referral.? This patient has not returned messages to call us so that we may obtain information for registrationand scheduling purposes. The referral has been closed. The following patient has a Consult to Outside Specialist [facility]: order placed. Patient Name: NOEMÍ LUNA Diagnosis: Impotence of Organic Origin,of Organic Origin, Ordering Provider: RAYNA ROTH MD ; Original Order DT/TM: January 16, 2015 14:13:01 CDT ; Order: Consult to Outside Specialist [facility] ; Order Details: Referral For: Adult Department: Urology Reason For Visit: men's health Why Needs cannot be met : NOT FOUND Why Needs cannot be met - FH : NOT FOUND Why Needs cannot be met [facility] : Service not available at [facility] Facility : [facility] FH : NOT FOUND Appointment Type: Consult [...] be Sent: NOT FOUND Impotence Organic Source: [facility] POWERCHART Document Id: [id number] Miscellaneous - Raymond Graham, L.P.N. - 01/16/2015 1:40 PM CDT Adult Creative Services Producer Intake/History Adult Creative Services Producer Intake/History Entered On: 01/16/2015 13:42 CDT Performed [...] Preferred Communication Mode : Verbal Languages : Faroese Is Patient Female and 13-50 no hysterectomy : No RAYMOND GRAHAM LPN - 01/16/2015 13:40 CDT Subjective Pain Symptoms : No RAYMOND GRAHAM Violette [facility] - 01/16/2015 13:40 CDT Dependent Habits Tobacco Use/Currently Using : No Exposure to Tobacco Smoke : Care provider denies smoking in home Smoking Status : Never smoker Alcohol Use : No ISABELLA GRAHAMFREDO Oakes [employer] - 01/16/2015 13:40 CDT Caffeine Use Grid Caffeine Use : Current Type : Coffee, Soft drinks Frequency : Weekly Amount : soda- weekly; coffee- 1x/week ISABELLA GRAHAMFREDO Oakes [facility] - 01/16/2015 13:40 CDT Recreational Drug Use Grid Drug Use : None ISABELLA GRAHAMFREDO Oakes [facility] - 01/16/2015 13:40 CDT ID Screen Drug Resistant Organism : No Travel Within Last 21 Days : No Contact with someone with Ebola : No GRAHAM, RAYMOND L [facility] - 01/16/2015 13:40 CDT Source: [employer] Document Id: [id number] CDT!10 documented in this encounter Plan of [...] Total and Free (01/16/2015 2:27 PM CDT) [facility] Method Time Signature % Free 7.5 (L) 9 - 30 POWERCHART Testosterone NGDL Comment: ADDITIONAL INFORMATIO N Testing performed by Catarina mcmahan Testosterone, Total 444 240 - 950 NGDL POWER CHART Comment: ADDITIONAL INFORMATIO N Testing performed by Liquid Chromatograp hy-Tandem Mass Spectrometry (LC-MS/MS). Test Performed by: [facility] [place] [address] Regional Rehabilitation Director: Rene Gomez II, M.D., Ph.D. Specimen (Source) Anatomical Collection Method Collection Time Re ceived Time Location / / Volume Laterality Blood 01/16/2015 2:27 PM CDT Rayna Roth M.D. LAB BLOOD NON ADD-ON Performing Organization Address City/State/ZIP Code Phon e Number POWERCHART PSA (Prostate-Specific Antigen), Total and Free (01/16/2015 2:15 PM CDT) [facility] gist Method Time Signature Prostate-Speci [...] of malignant disease. Test Performed by: [facility] - [address] [address] Regional Rehabilitation Director: Rene Gomez II, M.D., Ph.D. Specimen (Source) [...]
--- OUTSIDE RECORDS SUMMARY | 2022-08-05 10:18 | XMS_ITS | Encounter Summary ---
:1960 Author Organization [facility] Address [address] [place] [address] Care Team Providers Name Role Phone Unavailable Primary Care Provider Unavailable Encounter Details Date Type Department Care Team Description 12/18/2014 Hospital Encounter HX [facility] Cintia Aguirre M.D. [address] [place] [phone] (Wo rk) Social History Tobacco Use [...] documented in this encounter Nursing Notes Keyla Ptae L.P.N. - 12/18/2014 2:42 PM CDT called per Verbal request of Dr. Arriaza, informed to remove lisinopril from medications and only take 1/2 tab of the amlodipine. also to have follow visit and lab work next week, also informed that dr. arriaza will be informing the kidney specialist in [place]. Electronically Signed By: KEYLA PATE LPN On: 12/18/2014 03:17 PM Source: [facility] [employer] Document Id: [id number] documented in this encounter Miscellaneous Notes Miscellaneous [...] 11:23:27 CDT From: SHIRLENE ABBOTT RN To: [facility] [facility] Nurse Bennett; Sent: 01/03/2015 11:23:27 CDT Subject: 5-5-15 From: SHIRLENE ABBOTT RN To: SHIRLENE ABBOTT RN; Sent: 01/03/2015 11:22:52 CDT Subject: *General Message Pt has appt on January 09. [facility] pharmacy would like updated scripts on anything we will be filling, pt reports different directions on Lisinopril, HCTZ and Amlodipine. Checked Synthesis but not sure who prescribed. Source: [facility] POWERCHART Document Id: [id number] Miscellaneous - Shawnee Haji L.PPiliNPili - 12/18/2014 11:59 AM CDT Ambulatory Vitals [...] HAJI LPN - 12/18/2014 11:59 CDT Source: [employer] Document Id: [id number] CDT!16 documented in this encounter Plan of Treatment Not on filedocumented as of this encounter Visit Diagnoses Not on filedocumented in this encounter Additional Health Concerns Assessment Noted Time PHQ-9 Depression Total Score: 18 02/14/2013 9:53 AM CD T documented as of this encounter
--- OUTSIDE RECORDS SUMMARY | 2022-08-05 10:18 | XMS_ITS | Encounter Summary ---
:1960 Author Organization [facility] Address [address] [place] [address] Care Team Providers Name Role Phone Unavailable Primary Care Provider Unavailable Encounter Details Date Type Department Care Team Description 05/12/2015 Hospital Encounter [facility] Piero Swann M.D. [address] [place] [phone] (Wo rk) Social History Tobacco Use [...] and urlogic cancers sent for scanning. Source: [facility] POWERCHART Document Id: [id number] documented in this encounter Plan of Treatment Not on filedocumented as of this encounter Visit Diagnoses Not on filedocumented in this encounter Additional Health Concerns Assessment Noted Time PHQ-9 Depression Total Score: 18 02/14/2013 9:53 AM CD T documented as of this encounter
--- OUTSIDE RECORDS SUMMARY | 2022-08-05 10:18 | XMS_ITS | Encounter Summary ---
:1960 Author Organization [facility] Address [address] [place] [address] Care Team Providers Name Role Phone Unavailable Primary Care Provider Unavailable Encounter Details Date Type Department Care Team Description 05/15/2015 Hospital Encounter [facility] Kevin Aguirre M.D. [address] [place] [phone] (Wo rk) Social History Tobacco Use [...] HISTORY Patient is . 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 No tobacco or alcohol. SOCIAL HISTORY Date [...] Absolute: 4.64 05/12/15 Lymph Absolute: 1.63 05/12/15 Hood Absolute: 0.58 05/12/15 Eos Absolute: 0.15 05/12/15 [...] Ordered: OV Est Pt Level 4 - 55002 - 25 min 2. Anemia NOS Hemoglobin was rechecked and has gone up a little to 8.4. I think this is reassuring. I encouraged patient to remember his vitamin B12 and we will also recommend starting an iron supplement. Ordered: OV Est Pt Level 4 - 93405 - 25 min 3. Ulcer Gastric Acute NOS Patient is most likely suffering an acute gastric ulcer due to use of Celebrex in the setting of gastric bypass surgery. He has appropriately stopped the Celebrex. We will continue with Prilosec. EGD will hopefully help determine if there is anything further going on. Ordered: OV Est Pt Level 4 - 15546 - 25 min 4. DM2 Patient brings in a record of his blood sugars which have been doing quite well. Generally they arearound 100 in the morning. He is no longer on insulin. Ordered: OV Est Pt Level 4 - 74054 - 25 min 5. Gastric Bypass S/P We will help arrange appointment to follow up with Dr. Hess, Dr. Saez and Hong, his dietitian. Patient's weight loss has been very successful. Ordered: OV Est Pt Level 4 - 11504 - 25 min 6. Hypertension HTN NOS Blood pressure was initially a little high today. Recheck was a little better. We will need to continue to monitor this. Ordered: OV Est Pt Level 4 - 83773 - 25 min Electronically Signed By: KEVIN KILGORE MD On: 05/16/2015 06:54 AM Source: [facility] POWERCHART Document Id: [id number] documented in this encounter Miscellaneous Notes Miscellaneous - Shirlene Abbott R.N. - 06/19/2015 11:05 AM CDT *General Message Document Contains Addenda Addendum by SORIN VARGAS RN on 20 June 2015 13:46:56 CDT Updated Magali. 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 Reminded her of hemoglobin to be [...] working long hours he is currently in [place]. Blood sugars are good, reported many numbers from 85-95. Tailbone is sore because I don't have any meat on it. Did not leave any question or request that could be determined. No phone number. Source: [facility] POWERCHART Document Id: [id number] Miscellaneous - Kevin Cobb M.D. - 05/15/2015 4:04 PM CDT Ambulatory Patient Summary [address] [phone] Visit Information Name: NOEMÍ LUNA [facility] Number: [id number] Current Date: 05/15/2015 16:04:00 Physicians [...] Appointments Date Time Location Provider 05/16/2015 11:00 [facility] Scope Room Jd Bruno MD Attention: [...] if you dont have one. Go to [email or web address] and click on Create Your Account. Then, follow the directions to complete the online form. Youll be asked for your [facility] number which you can find at the top of this document. Your Goals/Additional instructions: Source: [facility] POWERCHART Document Id: [id number] Miscellaneous - Kevin Cobb M.D. - 05/15/2015 4:03 PM CDT Ambulatory Discharge Medication List [address] [id number] Visit Information Name: NOEMÍ LUNA [facility] Number: [id number] Visit Date: 05/15/2015 16:03:58 Attending [...] MD Signed On:15-MAY-2015 16:03:46 Additional Information: Source: [facility] POWERCHART Document Id: [id number] Miscellaneous - Marco Haji L.P.N. - 05/15/2015 [...] HAJI LPN - 05/15/2015 15:26 CDT Source: [employer] Document Id: [id number] CDT!12 Miscellaneous - Marco Haji L.P.N. - 05/15/2015 3:13 PM CDT Adult [employer] Buffer Intake/History Adult [employer] Buffer Intake/History Entered On: 05/15/2015 15:26 CDT Performed [...] Preferred Communication Mode : Verbal Languages : Greek Is Patient Female and 13-50 no hysterectomy : No HAJI, HETDAVID Oakes [facility] - 05/15/2015 15:13 CDT Subjective Pain Symptoms : No HAJIMARCO [facility] - 05/15/2015 15:13 CDT Dependent Habits Tobacco Use/Currently Using : No Tobacco Use/Last 12 months : No Tobacco Use/Advised to Quit : No Exposure to Tobacco Smoke : Care provider denies smoking in home Smoking Status : Never smoker Alcohol Use : No PATELDAVID Oakes [facility] - 05/15/2015 15:13 CDT Caffeine Use Grid Caffeine Use : Current Type : Coffee, Soft drinks Frequency : Weekly Amount : soda- weekly; coffee- 1x/week HAJI KRISTINEDAVID Oakes [facility] - 05/15/2015 15:13 CDT Recreational Drug Use Grid Drug Use : None MARCO HAJI [facility] - 05/15/2015 15:13 CDT Source: [facility] POWERCHART Document Id: [id number] CDT!5 documented in this encounter Plan of [...]
--- OUTSIDE RECORDS SUMMARY | 2022-08-05 10:18 | XMS_ITS | Encounter Summary ---
:1960 Author Organization [facility] Address [address] [place] [address] Care Team Providers Name Role Phone Unavailable Primary Care Provider Unavailable Encounter Details Date Type Department Care Team Description 12/08/2014 Hospital Encounter HX [facility] Kevin Aguirre M.D. [address] [place] [phone] (Wo rk) Social History Tobacco Use [...] Ordered: OV Est Pt Level 4 - 35190 - 25 min 2. DM2 Patient off of a couple medications. Blood sugars are a little high, but with anticipated weight loss, I do not want to be too aggressive with increasing his insulin. Goal is ultimately to get off of insulin and perhaps all diabetic meds altogether. Ordered: OV Est Pt Level 4 - 96547 - 25 min 3. Insufficiency Renal NOS Creatinine up a little. Was 1.1 on discharge. Some concern for dehydration. Will decrease lisinopril to 20mg daily and recheck. Ordered: OV Est Pt Level 4 - 84601 - 25 min 4. Hypertension HTN NOS Blood pressure is very good today. We are going to cut back on the lisinopril. Lasix has already been stopped. Ordered: OV Est Pt Level 4 - 86313 - 25 min 5. Dysfunction Erectile (ED) NOS Patient would like to be referred to urology to further discuss. This will be placed. Electronically Signed By: KEVIN KILGORE MD On: 12/10/2014 07:57 PM Source: [facility] POWERCHART Document Id: [id number] documented in this encounter Miscellaneous Notes Miscellaneous - Shirlene Dominguez R.N. - 12/11/2014 2:31 PM CDT vit D From: SHIRLENE DOMINGUEZ RN Sent: 12/11/2014 14:31:34 CDT Subject: vit D Pharmacy called about pt wanting Vit D. Provider doesn't recall discussing this with pt but if he chooses, he could take OTC 1000IU Vit D daily. Pharmacy will let him know. Source: [facility] POWERCHART Document Id: [id number] Electronically signed by Dayami, [facility] Health Care Attorney [id number] at 02/01/2017 3:36 PM CDT Miscellaneous - [...] at 1:15pm with Dr. Rayna Roth. From: EKVIN KILGORE MD To: NICHELLE NATHAN; Sent: 12/10/2014 20:00:36 CDT Subject: referral Referral Request Date: 12/10/2014_ Provider: Kevin Kilgore [facility] Type of Referral/Department: Urology- female Specific Clinical Question: Erectile dysfunction Pertinent History: _ Best Phone Number: _ Appointment Days to Avoid: Best Time of day: Date/Time of appointment made: Sign off: 3 Source: [facility] POWERCHART Document Id: [id number] Electronically signed by Dayami [facility] Health Care Attorney [id number] at 02/01/2017 3:36 PM CDT Miscellaneous - Kevin Cobb M.D. - 12/10/2014 7:58 PM CDT Lab results Document Contains Addenda Addendum by JUDITH PATE LPN on 11 December 2014 13:24:58 CDT pt and his notified. Judith Addendum by JESSIKA TORRES on 11 December 2014 09:03:38 CDT no answer. From: KEVIN KILGORE MD To: [place] [facility] Nurse Bennett; Sent: 12/10/2014 19:58:24 [...] 1-2 weeks. Order will be placed. Source: [facility] [employer] Storage Document Id: [id number] Electronically signed by Conversion, [facility] Health Care Attorney [id number] at 02/01/2017 3:36 PM CDT Miscellaneous - Shirlene Dominguez R.N. - 12/08/2014 3:32 PM CDT B12 Document Contains Addenda Addendum by SORIN VARGAS RN on 11 December 2014 09:04:15 CDT Submitted: Order:Rx Syringes Supply MISC Once 3 mg syringes with 5/8 25 gauge needle. Qty: 12 each Refills: 0 Substitutions Allowed Route To Pharmacy - [id number] Signed by SORIN VARGAS RN From: SHIRLENE DOMINGUEZ RN To: SHIRLENE DOMINGUEZ RN; Sent: 12/08/2014 15:32:47 CDT Subject: B12 Tried to call pt, need to ask if he is going to do B12 shots himself, if so, needs syringes - per pharmacy 3ml syringe with 5/8 in needle 25 guage, needs 12. No answering machine, unable to leave message. Source: [facility] [employer] Document Id: [id number] Electronically signed by Conversion, [facility] Health Care Attorney [id number] at 02/01/2017 3:36 PM CDT Miscellaneous - Kevin Cobb M.D. - 12/08/2014 1:13 PM CDT Ambulatory Patient Summary [address] [place] [phone] Visit Information Name: NOEMÍ LUNA [facility] Number: [id number] Current Date: 12/08/2014 13:13:16 [...] a month vitamin B12 deficiency Routed to [address] [address] docusate-senna (Senna Plus) 1 Tablet(s), [...] Consult: _ Release of MR_ PHI_ Source: [facility] POWERCHART Document Id: [id number] Miscellaneous - Kevin Cobb M.D. - 12/08/2014 1:13 PM CDT Ambulatory Discharge Medication List [address] [id number] Visit Information Name: CARLYLE NOEMÍ Fernandez [facility] Number: [id number] Visit Date: 12/08/2014 13:13:15 [...] a month vitamin B12 deficiency Routed to [address] [address] docusate-senna (Senna Plus) 1 Tablet(s), [...] MD Signed On:08-DEC-2014 13:12:26 Additional Information: Source: [facility] POWERCHART Document Id: [id number] Miscellaneous - Marco Dueñas LPiliPPiliN. 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 Intake/History Entered On: 12/08/2014 12:02 CDT Performed [...] Preferred Communication Mode : Verbal Languages : Eritrean Is Patient Female and 13-50 no hysterectomy [...] CDT Alcohol Use : No MARCO DUEÑAS [facility] - 12/08/2014 11:56 CDT Caffeine Use Grid Caffeine Use : Current Type : Coffee, Soft drinks Frequency : Weekly Amount : soda- weekly; coffee- 1x/week MARCO DUEÑAS [facility] - 12/08/2014 11:56 CDT Recreational Drug Use Grid Drug Use : None MARCO DUEÑAS [facility] - 12/08/2014 11:56 CDT ID Screen Drug Resistant Organism : No Travel Within Last 21 Days : No Contact with someone with Ebola : No MARCO DUEÑAS [facility] - 12/08/2014 11:56 CDT Source: [facility] [employer]comCHART Document Id: [id number] CDT!51 documented in this encounter Plan of Treatment Not on filedocumented as of this encounter Procedures Procedure Name Priority Date/Time Associated Diagnosis Comme nts BASIC METABOLIC Routine 12/08/2014 1:10 PM Result s for this PANEL, S/P CDT procedure are i n the results section. documented in this encounter Results (ABNORMAL) BMP (Basic Metabolic Panel) (12/08/2014 1:10 PM CDT) [facility] gist Method Time Signature Anion Gap [...] MMOLL HXeGFR (MDRD) 43 (L) >=60 POWERCHART [id number] eGFR 52 (L) >=60 POWERCHART Black/ [id number] Beninese Specimen (Source) Anatomical Collection Method Collection Time [...]
--- OUTSIDE RECORDS SUMMARY | 2022-08-05 10:18 | XMS_ITS | Encounter Summary ---
:1960 Author Organization [facility] Address [address] [place] [address] Care Team Providers Name Role Phone Unavailable Primary Care Provider Unavailable Encounter Details Date Type Department Care Team Description 05/13/[address] [facility] Eugene Bunch III, M.D. [address] [place] [address] [phone] (Wo rk) Social History Tobacco Use Types [...] 05/13/2015 3:19 PM CDT ED Discharge Instructions [address] [address] Name: NOEMÍ LUNA Date of : 1960 12:00 AM Visit Date: 05/13/2015 12:38 PM [facility] Number: [id number] Address: [address] [facility] [id number] Primary Care Provider: KEVIN KILGORE MD IMPORTANT: [facility] in [place] would like to thank you for allowing us to assist you with your healthcare needs. The following includes patient education materials and informationregarding your injury/illness. Diagnosis: 1:Anemia NOS Follow-Up Instructions: With: Address: When: KEVIN KILGORE [address] [place] [phone] Business (1) In 2days 05/15/2015 Your Upcoming Appointments: Date Time Location Provider 05/15/2015 15:00 [facility] Kevin Song MD Patient Education Materials: When [...] output; very dark urine) Abdominal pain ?? [id number] [place] [address]. All rights reserved. This information is not [...] you dont have one. Go to [email or web address] and click on Create Your Account. Then, follow the directions to complete the online form. Youll be asked for your [facility] number which you can find at [...] document has images extracted. Please consider using [employer] for all your patient education needs. Source: Twyxt Document Id: [id number] Mark Thakkar R.N. - 05/13/2015 3:19 PM CDT ED Depart Summary [facility] Emergency Department Clinical Discharge Summary PERSON INFORMATION Name NOEMÍ LUNA Age 54 Years 1960 12:00 AM Sex Male Language Turkmen PCP KEVIN KILGORE MD Marital Status Visit Id Visit Reason Anemia; Taking blood sample; hemoglobin check Specialty Enc Type Emergency Med Service Emergency Medicine Referred by Track Group [facility] ED Discharge 05/13/2015 3:19 PM Tracking Id [id number] Checkout 05/13/2015 3:19 PM Checkin 05/13/2015 12:38 PM Acuity 5 -Non Urgent Dispo Type Left Against Medical Advice Arrival 05/13/2015 12:38 PM Reg Status Complete LOS 000 02:41 Address: [address] [id number] Comment: PROVIDER INFORMATION Provider Role Provider Contact Time MARK THAKKAR ROAD BUILDER Nurse 05/13/15 12:52 EUGENE BUNCH III, MD ED Provider 05/13/15 12:52 DIAGNOSIS 1:Anemia NOS Comment: PATIENT EDUCATION INFORMATION Instructions: When You Have Gastrointestinal (GI) Bleeding Follow up: With: Address: When: KEVIN KILGORE [address] [place] [phone] Business (9) In 2days 05/15/2015 Source: Twyxt Document Id: [id number] documented in this encounter ED Notes Mark [...] THAKKAR RN - 05/13/2015 15:17 CDT Source: Twyxt Document Id: [id number] CDT!8 Mark Thakkar R.N. - 05/13/2015 2:48 [...] THAKKAR RN - 05/13/2015 14:48 CDT Source: Twyxt Document Id: [id number] CDT!7 Mark Thakkar R.N. - 05/13/2015 2:48 PM CDT ED Pain Assessment ED Pain Assessment Entered On: 05/13/2015 14:48 CDT Performed On: 05/13/2015 14:48 CDT by MARK THAKKAR RN Pain Assessment Pain Symptoms : Yes MARK THAKKAR RN - 05/13/2015 14:48 CDT Source: [facility] POWERCHART Document Id: [id number] CDT!3 Eugene Bunch M.D. - 05/13/2015 2:09 [...] on 09/29/2012 at 52 years. Comments: 09/30/2012 TIMING ADJUSTER 15:06 STEVE COUCH CNP left Genital warts (078.19) Comments: 09/30/2013 TIMING ADJUSTER 11:47 ANOOP MESSER LPN onset unknown Tinea pedis* (110.4) Comments: 09/30/2013 TIMING ADJUSTER 11:47 ANOOP MESSER END TRIMMER onset unknown Tinea cruris. (110.3) Comments: 09/30/2013 TIMING ADJUSTER 11:47 ANOOP MESSER END TRIMMER onset unknown. Surgical history: Gastric bypass (SNOMED CT 3933550239) on 11/19/2014 at 54 Years. Cystoscopy (SNOMED CT 88405874) on 12/26/2009 at 49 Years. Comments: 02/20/2010 08:36 - STEVE ANDREA CNP [facility] / normal PSA, TOTAL SCREENING (CPT4 G0103) on 12/26/2009 at 49 Years. Comments: 02/20/2010 08:38 - STEVE ANDREA CNP Done at [place] / Result: 1.55 Discectomy (SNOMED CT 9080150) on 02/19/1989 at 28 Years. Comments: 12/28/2009 09:38 - STEVE ANDREA KETTLE WORKER lumbar L4-L5. Family history: Diabetes mellitus Mother [...] Absolute 4.64 10(9)/L Lymph Absolute 1.63 x10(9)/L [place] Absolute 0.58 x10(9)/L Eos Absolute 0.15 x10(9)/L [...] III, MD On: 05/13/2015 03:06 PM [facility] P[facility] Document Id: [id number]} Mark Thakkar R.N. - 05/13/2015 1:01 PM [...] System: PowerChart ; Last Updated: 07/24/2011 10:45 TIMING ADJUSTER ; Life Cycle Date: 12/05/2010 ; Life [...] Comments: 09/30/2013 11:46 - ANOOP QUEVEDO Abby END TRIMMER onset unknown Flutter Atrial NOS (ICD-9-CM :427.32 ) Name of Problem: Flutter Atrial NOS ; Recorder: KEVIN KILGORE MD; Confirmation: Confirmed ; Classification: Medical ; Code: 427.32 ; Contributor System: PowerChart ; Last Updated: 07/29/2014 7:02 TIMING ADJUSTER ; Life Cycle Status: Active ; Responsible [...] System: PowerChart ; Last Updated: 09/30/2012 15:06 TIMING ADJUSTER ; Life Cycle Date: 09/30/2012 ; Life [...] Code: 695.89 ; Last Updated: 07/14/2012 14:36 TIMING ADJUSTER ; Life Cycle Status: Active ; Responsible [...] System: PowerChart ; Last Updated: 09/05/2010 9:56 TIMING ADJUSTER ; Life Cycle Date: 09/05/2010 ; Life Cycle Status: Active ; Responsible Provider: STEVE ANDREA CNP; Vocabulary: ICD-9-CM ; Comments: 09/30/2013 11:ANOOP ISAAC R END TRIMMER onset unknown Optic disc cupping (ICD-9-CM :377.14 [...] Medical ; Code: 110.3 ; Contributor System: Kam[employer] ; Last Updated: 06/01/2013 9:06 CDT ; Life Cycle Date: 06/01/2013 ; Life Cycle Status: Active ; Responsible Provider: MARILUZ FRAGA MD; Vocabulary: ICD-9-CM ; Comments: 09/30/2013 11:ANOOP ISAAC RLPN onset unknown Tinea pedis* (ICD-9-CM :110.4 ) Name of Problem: Tinea pedis* ; Recorder: MARILUZ FRAGA MD; Confirmation: Confirmed ; Classification: Medical ; Code: 110.4 ; Contributor System: [employer] ; Last Updated: 02/02/2014 8:24 CDT ; Life Cycle Date: 06/01/2013 ; Life Cycle Status: Active ; Responsible Provider: MARILUZ FRAGA MD; Vocabulary: ICD-9-CM ; Comments: 09/30/2013 11:ANOOP ISAAC R END TRIMMER onset unknown Ulcer of skin NOS (ICD-9-CM :707.9 ) Name of Problem: Ulcer of skin NOS ; Recorder: HALEIGH SCHULTZ CNP; Confirmation: Confirmed ; Classification: UPDATE NEEDED ; Code: 707.9 ; Contributor System: PowerChart ; Last Updated: 09/18/2010 8:25 TIMING ADJUSTER ; Life Cycle Date: 09/18/2010 ; Life Cycle Status: Active ; Responsible Provider: HALEIGH SCHULTZ CNP; Vocabulary: ICD-9-CM ; Comments: 09/30/2013 11:47 - ANOOP QUEVEDO LPN onset unknown Unspecified Adjustment Reaction (ICD-9-CM :309.9 ) Name of Problem: Unspecified Adjustment Reaction ; Onset Date: 05/05/2013 ; Confirmation: Confirmed ; Classification: Medical ; Code: 309.9 ; Contributor System: [facility] ; Last Updated: 12/03/2013 18:36 CDT ; Life Cycle Status: Active ; Vocabulary: ICD-9-CM ; Comments: - Unspecified adjustment reaction Urge Incontinence (ICD-9-CM :788.31 ) Name of Problem: Urge Incontinence ; Recorder: STEVE ANDREA; Confirmation: Confirmed ; Classification: Medical ; Code: 788.31 ; Contributor System: Kamcord ; Last Updated: 02/20/2010 8:39 CDT ; [...] PNED ; Probability: 0 ; Diagnosis Code: [id number] Triage Chief Complaint Description : see triage note Information Given By : Patient Accompanied By : Spouse Mode of Arrival ED : Private vehicle Track : Medical Languages : Turkmen Patient Informed of Triage Location : Emergency department GCS Assessed : Yes Treatments Prior to Arrival : None Is Patient Female and 13-50 no hysterectomy : No MARK THAKKAR RN - 05/13/2015 13:01 CDT Lois Coma Eye Opening Response Anchor Point : Spontaneously Best Verbal Response Anchor Point : Oriented Best Motor Response Anchor Point : Obeys simple commands Anchor Point Coma Score : 15 MARK HTAKKAR RN - 05/13/2015 13:01 CDT Pain Assessment [...] : 5 -Non Urgent Tracking Group : [facility] ED MARK THAKKAR Jim RN - 05/13/2015 [...] THAKKAR RN - 05/13/2015 13:01 CDT Source: [facility] Yanado Document Id: [id number] CDT!75 Mark Thakkar R.N. - 05/13/2015 12:53 [...] Medical ; Code: 600.00 ; Contributor System: [employer] ; Last Updated: 02/15/2010 10:00 CDT ; Life Cycle Date: 02/15/2010 ; Life Cycle Status: Active ; Responsible Provider: STEVE ANDREA CNP; Vocabulary: ICD-9-CM ; Comments: 09/30/2013 11:46 - ANOOP QUEVEDO R END TRIMMER onset unknown DM II (or NOS), uncontrolled (ICD-9-CM :250.02 ) Name of Problem: DM II (or NOS), uncontrolled ; Onset Date: 12/28/2009 ; Recorder: STEVE ANDREA CNP; Confirmation: Confirmed ; Classification: Medical ; Code: 250.02 ; Contributor System: PowerChart ; Last Updated: 07/24/2011 10:45 TIMING ADJUSTER ; Life Cycle Date: 12/05/2010 ; Life [...] ; Comments: 09/30/2013 11:47 - QUEVEDOANOOP R END TRIMMER onset unknown Erectile dysfunction* (ICD-9-CM :607.84 ) Name of Problem: Erectile dysfunction* ; Recorder: STEVE ANDREA CNP; Confirmation: Confirmed ; Classification: Medical ; Code: 607.84 ; Contributor System: PowerChart ; Last Updated: 12/28/2009 9:40 CDT ; Life Cycle Date: 12/28/2009 ; Life Cycle Status: Active ; Responsible Provider: STEVE ANDREA CNP; Vocabulary: ICD-9-CM ; Comments: 09/30/2013 11:46 - QUEVEDOANOOP R END TRIMMER onset unknown Flutter Atrial NOS (ICD-9-CM :427.32 ) Name of Problem: Flutter Atrial NOS ; Recorder: KEVIN KILGORE MD; Confirmation: Confirmed ; Classification: Medical ; Code: 427.32 ; Contributor System: PowerChart ; Last Updated: 07/29/2014 7:02 TIMING ADJUSTER ; Life Cycle Status: Active ; Responsible Provider: KEVIN KILGORE MD; Vocabulary: ICD-9-CM Flutter Atrial NOS (ICD-9-CM :427.32 ) Name of Problem: Flutter Atrial NOS ; Recorder: JOSIE CASTANEDA LPN, RT; Confirmation: Confirmed ; Classification: Medical ; Code: 427.32 ; Contributor System: [employer] ; Last Updated: 01/04/2015 10:57 CDT ; Life Cycle Status: Active ; Vocabulary: ICD-9-CM Fracture Closed Radial head (ICD-9-CM :813.05 ) Name of Problem: Fracture Closed Radial head ; OnsetDate: 09/29/2012 ; Recorder: STEVE ANDREA CNP; Confirmation: Confirmed ; Classification: Medical ; Code: 813.05 ; Contributor System: [employer] ; Last Updated: 09/30/2012 15:06 TIMING ADJUSTER ; Life Cycle Date: 09/30/2012 ; Life Cycle Status: Active ; Responsible Provider: STEVE ANDREA CNP; Vocabulary: ICD-9-CM ; Comments: 09/30/2012 15:06 - STEVE ANDREA CNP left Genital warts (ICD-9-CM :078.19 ) Name of Problem: Genital warts ; Recorder: MARILUZ FRAGA MD; Confirmation: Confirmed ; Classification: UPDATE NEEDED ; Code: 078.19 ; Contributor System: [employer]; Last Updated: 02/11/2013 16:19 CDT ; Life [...] Code: 695.89 ; Last Updated: 07/14/2012 14:36 TIMING ADJUSTER ; Life Cycle Status: Active ; Responsible [...] System: PowerChart ; Last Updated: 09/05/2010 9:56 TIMING ADJUSTER ; Life Cycle Date: 09/05/2010 ; Life [...] Medical ; Code: 110.3 ; Contributor System: [employer] ; Last Updated: 06/01/2013 9:06 CDT ; Life Cycle Date: 06/01/2013 ; Life Cycle Status: Active ; Responsible Provider: MARILUZ FRAGA MD; Vocabulary: ICD-9-CM ; Comments: 09/30/2013 11:ANOOP ISAAC RLPN onset unknown Tinea pedis* (ICD-9-CM :110.4 ) Name of Problem: Tinea pedis* ; Recorder: MARILUZ FRAGA MD; Confirmation: Confirmed ; Classification: Medical ; Code: 110.4 ; Contributor System: [employer] ; Last Updated: 02/02/2014 8:24 CDT ; Life Cycle Date: 06/01/2013 ; Life Cycle Status: Active ; Responsible Provider: MARILUZ FRAGA MD; Vocabulary: ICD-9-CM ; Comments: 09/30/2013 11:47 ANOOP GONZALEZ R END TRIMMER onset unknown Ulcer of skin NOS (ICD-9-CM :707.9 ) Name of Problem: Ulcer of skin NOS ; Recorder: HALEIGH SCHULTZ CNP; Confirmation: Confirmed ; Classification: UPDATE NEEDED ; Code: 707.9 ; Contributor System: [employer] ; Last Updated: 09/18/2010 8:25 TIMING ADJUSTER ; Life Cycle Date: 09/18/2010 ; Life Cycle Status: Active ; Responsible Provider: HALEIGH SCHULTZ CNP; Vocabulary: ICD-9-CM ; Comments: 09/30/2013 11:ANOOP ISAAC END TRIMMER onset unknown Unspecified Adjustment Reaction (ICD-9-CM :309.9 ) Name of Problem: Unspecified Adjustment Reaction ; Onset Date: 05/05/2013 ; Confirmation: Confirmed ; Classification: Medical ; Code: 309.9 ; Contributor System: [facility] ; Last Updated: 12/03/2013 18:36 CDT [...] ; Comments: 09/30/2013 11:46 - ANOOP QUEVEDO END TRIMMER onset unknown Diagnoses(Active) Taking blood sample Date: 05/13/2015 ; Diagnosis Type: Reason For Visit ; Confirmation: Complaint of; Clinical Dx: Taking blood sample ; Classification: Medical ; Clinical Service: Emergency medicine ; Code: PNED ; Probability: 0 ; Diagnosis Code: [id number] Triage Chief Complaint Description : 54 yo [...] Private vehicle Track : Medical Languages : Turkmen Patient Informed of Triage Location : Emergency [...] MARK THAKKAR RN - 05/13/2015 12:53 CDT Anchor Point Coma Eye Opening Response Anchor Point : Spontaneously Best Verbal Response Lois : Oriented Best Motor Response Anchor Point : Obeys simple commands Lois Coma Score [...] : 5 -Non Urgent Tracking Group : [facility] ED MARK THAKKAR RN - 05/13/2015 12:53 [...] THAKKAR RN - 05/13/2015 12:53 CDT Source: [facility] Yanado Document Id: [id number] CDT!52 documented in this encounter Miscellaneous Notes [...] that he would rather have care at [facility]-. Discussed with patient that he needs to take recommended RX and follow up sooner in ED if sx worsen. Patient verbalized understanding. MARK THAKKAR RN - 05/14/2015 8:21 CDT Source: [facility] POWERCHART Document Id: [id number] CDT!6 Miscellaneous - Conversion, Historical Provider Ser - 05/13/2015 3:19 PM CDT Coding Summary-Paper Based CODING DATE: 05/22/2015 FINAL [facility] STATUS: Left Against Medical Advice PAYOR: Medicaid [...] HEREDIA Date Saved: 05/22/2015 08:26 am Source: Twyxt Document Id: [id number] Miscellaneous - Mark Thakkar R.N. - 05/13/2015 [...] THAKKAR RN - 05/13/2015 15:17 CDT Source: [employer]xt Document Id: [id number] CDT!11 Miscellaneous - Mark Thakkar R.N. - 05/13/2015 2:48 PM CDT Valuables/Belongings Valuables/Belongings Entered On: 05/13/2015 14:49 CDT Performed On: 05/13/2015 14:48 CDT by MARK THAKKAR RN Valuables/Belongings Belongings Sent Home With : all belongings sent home with patient Home Medication Disposition : None brought in with patient MARK THAKKAR RN - 05/13/2015 14:48 CDT [facility] Document Id: [id number] CDT!4 Miscellaneous - Mark Thakkar R.N. - [...] Control : 8 Lynx Visit Level : 98613 Level 4 Treatments Prior to Arrival : None MARK THAKKAR RN - 05/13/2015 14:49 CDT Chief Complaint 11.0 Reason For Visit Category : Gastrointestinal TVL Calculation : 12 ED Chief Complaint Gastrointestinal 11.0 : Abdominal pain TVL for Facility Charge Ticket Dx : Level 4 MARK THAKKAR RN - 05/13/2015 14:49 CDT [facility] POWERFerevo Document Id: [id number] CDT!23 documented in this encounter Plan of [...]
--- OUTSIDE RECORDS SUMMARY | 2022-08-05 10:19 | XMS_ITS | Encounter Summary ---
:1960 Author Organization [facility] Address [address] [place] [address] Care Team Providers Name Role Phone Unavailable Primary Care Provider Unavailable Encounter Details Date Type Department Care Team Description 10/03/2014 Hospital Encounter HX [facility] Cintia Cobb M.D. [address] [place] [phone] (Wo rk) Social History Tobacco Use [...] 185 cm (6' 0.84) 10/03/2014 7:52 PM SALES ACCOUNT COORDINATOR Body Mass Index - - documented in this encounter Miscellaneous Notes Miscellaneous - Cintia Cobb M.D. - 10/06/2014 2:30 PM SALES ACCOUNT COORDINATOR lab results From: CINTIA KILGORE MD To: CINTIA KILGORE MD; Sent: 10/06/2014 14:30:36 SALES ACCOUNT COORDINATOR Subject: lab results Spoke with patient re: lab results. A1c looks very good at 7.2. Kidney function is still elevated at1.34, but has not significantly changed. He is also spilling extra protein into his urine. Discussedthat in the future, we will need to have him see a nephrology, but first we will continue to pursue the gastric bypass vs lap band procedure. Source: [facility] POWERCHART Document Id: [id number] Miscellaneous - Cintia Cobb M.D. - 10/06/2014 2:26 PM SALES ACCOUNT COORDINATOR F/U on referral Document Contains Addenda Addendum by CINTIA KILGORE MD on 09 October 2014 13:42:37 SALES ACCOUNT COORDINATOR From: CINTIA KILGORE MD To: NICHELLE NATHAN; Sent: 10/09/2014 13:42:37 SALES ACCOUNT COORDINATOR Subject: RE: F/U on referral Thanks. [place]! Addendum by NICHELLE NATHAN on 09 October 2014 13:17:36 SALES ACCOUNT COORDINATOR From: NICHELLE NATHAN To: CINTIA KILGORE MD; Sent: 10/09/2014 13:17:36 SALES ACCOUNT COORDINATOR Subject: RE: F/U on referral Patient [facility]. Addendum by NICHELLE NATHAN on 09 October 2014 08:01:25 SALES ACCOUNT COORDINATOR From: NICHELLE NATHAN To: CINTIA KILGORE MD; Sent: 10/09/2014 08:01:25 SALES ACCOUNT COORDINATOR Subject: RE: F/U on referral I did attempt to call him, no answer again. It doesn't appear he has VM, so we are not able to leavehim a message either. Addendum by CINTIA KILGORE MD on 06 October 2014 20:29:14 SALES ACCOUNT COORDINATOR From: CINTIA KILGORE MD To: NICHELLE NATHAN; Sent: 10/06/2014 20:29:14 SALES ACCOUNT COORDINATOR Subject: RE: F/U on referral Was patient updated with this info? Cintia Segura Addendum by NICHELLE NATHAN on 06 October 2014 15:52:27 SALES ACCOUNT COORDINATOR From: NICHELLE NATHAN To: NICHELLE NATHAN; Sent: 10/06/2014 15:52:27 SALES ACCOUNT COORDINATOR Subject: FW: F/U on referral Cintia from [facility], called back to report that she was not successful in reaching patient. She asked that I note that they did attempt to call and if he wishes to call them directly he can do so [phone]. Addendum by NICHELLE NATHAN on 06 October 2014 15:29:30 SALES ACCOUNT COORDINATOR From: NICHELLE NATHAN To: CINTIA KILGORE MD; Sent: 10/06/2014 15:29:30 SALES ACCOUNT COORDINATOR Subject: RE: F/U on referral I contacted [...] no answer. From: CINTIA KILGORE MD To: INCHELLE NATHAN; Sent: 10/06/2014 14:26:32 SALES ACCOUNT COORDINATOR Subject: F/U on referral Patient has not yet heard [facility] re: gastric banding consult appt. Can you look into this? Thanks, Cintia [facility] Document Id: [id number] Miscellaneous - Conversion, Historical Provider Ser - 10/03/2014 11:59 PM SALES ACCOUNT COORDINATOR Coding Summary-Paper Based CODING DATE: 10/09/2014 FINAL [facility] STATUS: * Discharged to Home [...] BLISS Date Saved: 10/09/2014 12:51 pm Source[facility] Document Id: [id number] documented in this encounter Plan of Treatment Not on filedocumented as of this encounter Procedures Procedure Name Priority Date/Time Associated Comments Diagnosis ALBUMIN, RANDOM, U Routine 10/03/2014 5:00 PM Res ults for this SALES ACCOUNT COORDINATOR procedure are i n the results section. HEMOGLOBIN A1C, B Routine 10/03/2014 5:00 PM Resu lts for this SALES ACCOUNT COORDINATOR procedure are i n the results section. BASIC METABOLIC Routine 10/03/2014 5:00 PM Result s for this PANEL, S/P SALES ACCOUNT COORDINATOR procedure are i n the results section. documented in this encounter Results (ABNORMAL) Microalbumin, Random, Urine (10/03/2014 5:00 PM SALES ACCOUNT COORDINATOR) Analysis Per[facility] Time Signature HXU Albumin % 1566.4 (H) 12.0 - POWERCHART 30.0 MGL Creatinine, 91.9 30.0 - POWERCHART Random, U 125.0 MGDL Albumin/Creati 1704 (H) 0 - 25 POWERCHART nine Ratio MGGM Specimen (Source) Anatomical Collection Method Collection Time Re ceived Time Location / / Volume Laterality Urine 10/03/2014 5:00 PM SALES ACCOUNT COORDINATOR Cintia Copeland M.D. LAB URINE ORDERABLES Performing Organization Address City/State/ZIP Code Phon e Number POWERCHART (ABNORMAL) Hemoglobin A1c (10/03/2014 5:00 PM SALES ACCOUNT COORDINATOR) P athologist Signature Hemoglobin A1c, 7.2 (H) <=5.6 A1C POWERCHART B Specimen (Source) Anatomical Collection Method Collection Time Re ceived Time Location / / Volume Laterality Blood 10/03/2014 5:00 PM SALES ACCOUNT COORDINATOR Cintia Copeland M.D. LAB BLOOD ADD-ON Performing Organization Address City/[facility] Phon e Number POWERCHART (ABNORMAL) BMP (Basic Metabolic Panel) (10/03/2014 5:00 PM SALES ACCOUNT COORDINATOR) Analysis Performed At Patho logist Time Signature [...] MMOLL HXeGFR (MDRD) 55 (L) >=60 POWERCHART [id number] eGFR >60 >=60 POWERCHART Black/ [id number] Mauritian Specimen (Source) Anatomical Collection Method Collection Time Re ceived Time Location / / Volume Laterality Blood 10/03/2014 5:00 PM SALES ACCOUNT COORDINATOR Cintia Copeland M.D. LAB BLOOD ADD-ON Performing Organization Address City/State/ZIP Code Phon e Number POWERCHART documented in this encounter Visit Diagnoses Not on filedocumented in this encounter Additional Health Concerns Assessment Noted Time PHQ-9 Depression Total Score: 18 02/14/2013 9:53 AM CD T documented as of this encounter
--- OUTSIDE RECORDS SUMMARY | 2022-08-05 10:19 | XMS_ITS | Encounter Summary ---
:1960 Author Organization [facility] Address [address] [place] [address] Care Team Providers Name Role Phone Unavailable Primary Care Provider Unavailable Encounter Details Date Type Department Care Team Description 07/13/[address] [facility] Tigist Cosme M.D. [address] [place], [place] [phone] (Wo rk) Social History [...] 185 cm (6' 0.84) 07/13/2014 10:24 AM TIPPLE SUPERVISOR Body Mass Index - - documented in this encounter Plan of Treatment Not on filedocumented as of this encounter Visit Diagnoses Not on filedocumented in this encounter Additional Health Concerns Assessment Noted Time PHQ-9 Depression Total Score: 18 02/14/2013 9:53 AM CD T documented as of this encounter
--- OUTSIDE RECORDS SUMMARY | 2022-08-05 10:19 | XMS_ITS | Encounter Summary ---
:1960 Author Organization [facility] Address [address] [place] [address] Care Team Providers Name Role Phone Unavailable Primary Care Provider Unavailable Encounter Details Date Type Department Care Team Description 11/04/2014 Hospital Encounter HX [facility] Cintia Cobb M.D. [address] [place] [phone] (Wo rk) Social History Tobacco Use [...] 185 cm (6' 0.84) 11/04/2014 1:27 PM ENGRAVING PRESS OPERATOR Body Mass Index - - documented in this encounter Miscellaneous Notes Miscellaneous - Cintia Cobb M.D. - 11/17/2014 3:00 PM CDT Normal Results Letter 17 November 2014 ED JEREMY [address] [place] [address] [address] [facility] [id number] Dear LAZ LUNA, Your recent creatinine was [...] >60 10/03/2014 >=60 - Sincerely, CINTIA KILGORE [address] [address] Electronic Signature Electronically Signed By: CINTIA KILGORE MD On: 17 November 2014 This document has images extracted. Source: [employer] Document Id: [id number] Electronically signed by Conversion, [facility] Director [employer] [id number] at 02/02/2017 1:37 AM CDT Miscellaneous - Conversion, Historical Provider Ser - 11/04/2014 11:59 PM ENGRAVING PRESS OPERATOR Coding Summary-Paper Based CODING DATE: 11/08/2014 FINAL [facility] STATUS: * Discharged [...] BLISS Date Saved: 11/08/2014 02:17 pm Source: [employer] Document Id: [id number] documented in this encounter Plan of Treatment Not on filedocumented as of this encounter Procedures Procedure Name Priority Date/Time Associated Comments Diagnosis CREATININE WITH Routine 11/04/2014 1:40 PM Result s for this EGFR, S/P ENGRAVING PRESS OPERATOR procedure are i n the results section. documented in this encounter Results (ABNORMAL) Creatinine with eGFR (11/04/2014 1:40 PM ENGRAVING PRESS OPERATOR) [facility] Time Signature Creatinine 1.43 (H) 0.60 - POWERCHART 1.30 MGDL HXeGFR (MDRD) 51 (L) >=60 POWERCHART [id number] eGFR >60 >=60 POWERCHART Black/ [id number] [place] Specimen (Source) Anatomical Collection Method Collection Time Re ceived Time Location / / Volume Laterality Blood 11/04/2014 1:40 PM ENGRAVING PRESS OPERATOR Cintia Copeland M.D. LAB BLOOD ADD-ON Performing Organization Address City/State/ZIP Code Phon e Number POWERCHART documented in this encounter Visit Diagnoses Not on filedocumented in this encounter Additional Health Concerns Assessment Noted Time PHQ-9 Depression Total Score: 18 02/14/2013 9:53 AM CD T documented as of this encounter
--- OUTSIDE RECORDS SUMMARY | 2022-08-05 10:19 | XMS_ITS | Encounter Summary ---
:1960 Author Organization [facility] Address [address] [place] [address] Care Team Providers Name Role Phone Unavailable [...]
--- OUTSIDE RECORDS SUMMARY | 2022-08-05 10:19 | XMS_ITS | Encounter Summary ---
:1960 Author Organization [facility] Address [address] [place] [address] Care Team Providers Name Role Phone Unavailable Primary Care Provider Unavailable Encounter Details Date Type Department Care Team Description 07/27/2014 Hospital Encounter [facility] Cintia lindquist M.D. [address] [place] [phone] (Wo rk) Social History Tobacco Use [...] 185 cm (6' 0.84) 07/27/2014 1:30 PM CHEMICAL PACKAGER Body Mass Index - - documented in this encounter Plan of Treatment Not on filedocumented as of this encounter Visit Diagnoses Not on filedocumented in this encounter Additional Health Concerns Assessment Noted Time PHQ-9 Depression Total Score: 18 02/14/2013 9:53 AM CD T documented as of this encounter
--- OUTSIDE RECORDS SUMMARY | 2022-08-05 10:19 | XMS_ITS | Encounter Summary ---
:1960 Author Organization [facility] Address [address] [place] [address] Care Team Providers Name Role Phone Unavailable Primary Care Provider Unavailable Encounter Details Date Type Department Care Team Description 10/24/2014 Hospital Encounter [facility] MD Cintia Aguirre M.D. [address] [place] [phone] (Wo rk) Social History Tobacco Use Types Packs/Day Years Used Date Smoking Tobacco: Never Assessed Sex Assigned at Date Recorded Not on file documented as of this encounter Last Filed Vital Signs Vital Sign Reading Time Taken Comments Blood Pressure 151/80 10/24/2014 6:00 PM SPECIAL NEEDS CAREGIVER Pulse 46 10/24/2014 6:00 PM SPECIAL NEEDS CAREGIVER Temperature - - Respiratory Rate 16 10/24/2014 6:00 PM SPECIAL NEEDS CAREGIVER Oxygen Saturation - - Inhaled Oxygen Concentration - - Weight 155 kg (341 lb 11.4 oz) 10/24/2014 6:00 PM SPECIAL NEEDS CAREGIVER Height 185 cm (6' 0.84) 10/24/2014 6:00 PM SPECIAL NEEDS CAREGIVER Body Mass Index 45.29 10/24/2014 6:00 PM SPECIAL NEEDS CAREGIVER documented in this encounter Progress Notes Cintia Cobb M.D. - 10/24/2014 5:28 AM CST Clinic Full Note CHIEF COMPLAINT/REASON FOR VISIT Review some stuff with Dr. Song HISTORY OF PRESENT ILLNESS Ed is a 54 year old male who presents today to follow up on recent visit to the [facility] bariatric surgery program. He reports that this appointment went okay. He also saw a dietitian and they will be getting records from [facility] prior to scheduling an appt with the surgeon. They think he would be a good candidate for the gastric sleeve. Patient is interested in this because the recovery time would be shorter than the gastric bypass procedure. He states that he cannot afford to be off work for that long. He has follow up with [facility] to review bariatric surgery options tomorrow. He [...] Lab Hgb A1c 7.2 % 10/03/2014 10:30 SPECIAL NEEDS CAREGIVER Outside Lab Creatinine (Serum) 1.34 mg/dL 10/03/2014 10:30 SPECIAL NEEDS CAREGIVER IMPRESSION/REPORT/PLAN 1. DM2 Blood sugars continue to [...] Ordered: OV Est Pt Level 4 - [id number] - 25 min 2. Obesity Medically Complicated We reviewed the note from [facility] They need [facility]'s records and I have asked him to follow up to ensure that has happened. Also reviewed that he needs to get down to a weight of 331. Recommended that he review the sleeve option with [facility] at his appointment tomorrow. Ordered: OV Est Pt Level 4 - [id number] - 25 min 3. Hypertension HTN NOS Blood pressure still a little high. Ordered: OV Est Pt Level 4 - 76433 - 25 min 4. Insufficiency Renal NOS Creatinine a little elevated with increased diuretic dose, but stable. He does showing spilling of protein into his urine. Ordered: OV Est Pt Level 4 - 78232 - 25 min 5. Edema Pedal Recommended that he wear his compressive stockings daily, but take them off at night. Recommended using dish gloves to put them on. Ordered: OV Est Pt Level 4 - 01112 - 25 min Electronically Signed By: CINTIA KILGORE MD On: 10/25/2014 05:33 AM Source: [employer] POWERCHART Document Id: [id number] IAL NEEDS CAREGIVER documented in this encounter Miscellaneous Notes Miscellaneous - Cintia Cobb M.D. - 10/24/2014 6:48 PM SPECIAL NEEDS CAREGIVER Ambulatory Patient Summary [address] [phone] Visit Information Name: LAZ LUNA [facility] Number: [id number] Current Date: 10/24/2014 18:48:50 Physicians [...] appointment detail needed. Your Goals/Additional instructions: Source: [facility] POWERCHART Document Id: [id number] IAL NEEDS CAREGIVER Miscellaneous - Cintia Cobb M.D. - 10/24/2014 6:48 PM SPECIAL NEEDS CAREGIVER Ambulatory Discharge Medication List [address] [place], [place] [phone] Visit Information Name: LAZ LUNA [facility] Number: [id number] Visit Date: 10/24/2014 18:48:48 Attending [...] MD Signed On:24-OCT-2014 18:48:34 Additional Information: Source: [facility] POWERCHART Document Id: [id number] IAL NEEDS CAREGIVER Miscellaneous - Shawnee Haji L.P.N. - 10/24/2014 6:00 PM CST Adult Steamfitter Apprentice Intake/History Adult Steamfitter Apprentice Intake/History Entered On: 10/24/2014 18:04 SPECIAL NEEDS CAREGIVER Performed On: 10/24/2014 18:00 SPECIAL NEEDS CAREGIVER by SHAWNEE HAJI LPN Intake Chief Complaint : Review some stuff with Dr. Song Temperature Core : 35.6 DegC(Converted to: 96.1 DegF) (LOW) Peripheral Pulse Rate : 46 /min (<LLOW) Respiratory Rate : 16 /min Systolic Blood Pressure : 151 mmHg (HI) Diastolic Blood Pressure : 80 mmHg NIBP Mean : 104 mmHg SpO2 : 96 % SHAWNEE HAJI LPN - 10/24/2014 18:05 SPECIAL NEEDS CAREGIVER Heart Rhythm : Regular BP Location : [...] kg/m2 SHAWNEE HAJI LPN - 10/24/2014 18:00 SPECIAL NEEDS CAREGIVER General Info Information Given By : Patient Preferred Communication Mode : Verbal Languages : Zambian Is Patient Female and 13-50 no hysterectomy : No SHAWNEE HAJI LPN - 10/24/2014 18:00 SPECIAL NEEDS CAREGIVER Subjective Pain Symptoms : No SHAWNEE HAJI LPN - 10/24/2014 18:00 SPECIAL NEEDS CAREGIVER Dependent Habits Tobacco Use/Currently Using : No Tobacco Use/Last 12 months : No Tobacco Use/Advised to Quit : No Exposure to Tobacco Smoke : Care provider denies smoking in home Smoking Status : Never smoker SHAWNEE HAJI LPN - 10/24/2014 18:00 SPECIAL NEEDS CAREGIVER Tobacco Use Grid Last Use : never SHAWNEE HAJI LPN - 10/24/2014 18:00 SPECIAL NEEDS CAREGIVER Alcohol Use : No SHAWNEE HAJI LPN - 10/24/2014 18:00 SPECIAL NEEDS CAREGIVER Caffeine Use Grid Caffeine Use : Current Type : Coffee, Soft drinks Frequency : Weekly Amount : soda- weekly; coffee- 1x/week SHAWNEE HAJI LPN - 10/24/2014 18:00 SPECIAL NEEDS CAREGIVER Recreational Drug Use Grid Drug Use : None SHAWNEE HAJI LPN - 10/24/2014 18:00 SPECIAL NEEDS CAREGIVER ID Screen Drug Resistant Organism : No Travel Within Last 21 Days : No SHAWNEE HAJI LPN - 10/24/2014 18:00 SPECIAL NEEDS CAREGIVER Source: [employer] Document Id: [id number] SPECIAL NEEDS CAREGIVER!10 IAL NEEDS CAREGIVER documented in this encounter Plan of Treatment Not on filedocumented as of this encounter Visit Diagnoses Not on filedocumented in this encounter Additional Health Concerns Assessment Noted Time PHQ-9 Depression Total Score: 18 02/14/2013 9:53 AM CD T documented as of this encounter
--- OUTSIDE RECORDS SUMMARY | 2022-08-05 10:19 | XMS_ITS | Encounter Summary ---
:1960 Author Organization [facility] Address [address] [place] [address] Care Team Providers Name Role Phone Unavailable Primary Care Provider Unavailable Encounter Details Date Type Department Care Team Description 07/27/2014 Hospital Encounter HX [facility] Cintia Aguirre M.D. [address] [place] [phone] (Wo rk) Social History Tobacco Use Types Packs/Day Years Used Date Smoking Tobacco: Never Assessed Sex Assigned at Date Recorded Not on file documented as of this encounter Last Filed Vital Signs Vital Sign Reading Time Taken Comments Blood Pressure 154/78 07/27/2014 12:04 PM CLIENT SOLUTIONS MANAGER Pulse 49 07/27/2014 12:04 PM CLIENT SOLUTIONS MANAGER Temperature - - Respiratory Rate - - Oxygen Saturation - - Inhaled Oxygen Concentration - - Weight 164 kg (362 lb 7 oz) 07/27/2014 12:04 PM CLIENT SOLUTIONS MANAGER Height 185 cm (6' 0.84) 07/27/2014 12:04 PM CLIENT SOLUTIONS MANAGER Body Mass Index 48.03 07/27/2014 12:04 PM CLIENT SOLUTIONS MANAGER documented in this encounter Progress Notes Cintia Cobb M.D. - 07/27/2014 11:56 AM CST [id number] CHIEF COMPLAINT/REASON FOR VISIT Leg swelling. HISTORY [...] potentially ordering an open MRI in the [facility] and then having him follow through with [...] Cintia Song M.D./caron Electronically Signed By: CINTIA KILOGRE MD On: 08/12/2014 08:50 AM Source: [facility] MHSDOLBEYNONRADSYS Document Id: [id number] NT SOLUTIONS MANAGER documented in this encounter Miscellaneous Notes Miscellaneous - Cintia Cobb M.D. - 07/28/2014 11:50 AM CLIENT SOLUTIONS MANAGER blood thinner Document Contains Addenda Addendum by ANNE MARIE TUTTLE LPN, RT on 28 July 2014 12:40:42 CLIENT SOLUTIONS MANAGER notified. DL From: CINTIA KILGORE MD To: ANNE MARIE TUTTLE LPN, RT; Sent: 07/28/2014 11:50:00 CLIENT SOLUTIONS MANAGER Subject: blood thinner Please let patient know that I have heard from Dr. Reyes re: anticoagulation/blood thinner medicine and he would wait to address that until after surgery. We will have him see Dr. Gaitan as scheduled on 08/14 and myself on 08/10. Cintia Segura Source: [facility] POWERCHART Document Id: [id number] Miscellaneous - Cintia Cobb M.D. - 07/27/2014 2:12 PM CLIENT SOLUTIONS MANAGER Ambulatory Patient Summary [place] [place] [phone] Visit Information Name: LUNALAZ Padilla [facility] Number: [id number] Current Date: 07/27/2014 14:12:29 Physicians [...] swelling This is a CHANGE Routed to [facility] [address] hydrochlorothiazide (hydrochlorothiazide 25 mg oral tablet) 1 Tablet(s), Oral, once a day high bloodpressure This is a CH[facility] [address] hydrocortisone topical (hydrocortisone 2.5% topical lotion) 1 jannie, Topical, three times a day ibuprofen (Advil) 200 mg, Oral, 2 tabs daily insulin glargine (Lantus Solostar Pen 100 units/mL subcutaneous solution) 75 units, Subcutaneous, once a day diabetes This is a CHANGE [facility] [address] liraglutide (Victoza) 1.8 mg, Subcutaneous, once a day lisinopril (lisinopril 40 mg oral tablet) 1 Tablet(s), Oral, two times a day high blood pressure This is a CHANGE Routed to [address] [address] metFORMIN (metformin 1000 mg oral tablet) 1 Tablet(s), Oral, two times a day with meals diabetes This is a CHANGE Routed to [address] [address] metoprolol (metoprolol tartrate 25 mg oral tablet) 1 Tablet(s), Oral, two times a day omeprazole (omeprazole 20 mg oral delayed release capsule) 1 cap, Oral, once a day simvastatin (simvastatin 40 mg oral tablet) 1 Tablet(s), Oral, once a day (at bedtime) high cholesterol This is a CHANGE Routed to [address] [address] tadalafil (Cialis 20 mg oral [...] Appointments Date Time Location Provider 08/10/2014 18:00 [facility] Family Med Cintia Song MD 08/14/2014 11:30 [facility] Cardiology Chasity Gaitan MD Attention: Contact your local Clinic if further appointment detail needed. Your Goals/Additional instructions: Source: [facility] POWERCHART Document Id: [id number] NT SOLUTIONS MANAGER Miscellaneous - Cintia Cobb M.D. - 07/27/2014 2:12 PM CLIENT SOLUTIONS MANAGER Ambulatory Discharge Medication List [address] [id number] Visit Information Name: LAZ LUNA [facility] Number: [id number] Visit Date: 07/27/2014 14:12:27 Attending [...] swelling This is a CHANGE Routed to [address] [address] hydrochlorothiazide (hydrochlorothiazide 25 mg oral tablet) 1 Tablet(s), Oral, once a day high bloodpressure This is a CHANGE Routed to [address] [address] hydrocortisone topical (hydrocortisone 2.5% topical lotion) 1 jannie, Topical, three times a day ibuprofen (Advil) 200 mg, Oral, 2 tabs daily insulin glargine (Lantus Solostar Pen 100 units/mL subcutaneous solution) 75 units, Subcutaneous, once a day diabetes This is a CHANGE Routed to [address] [address] liraglutide (Victoza) 1.8 mg, Subcutaneous, once a day lisinopril (lisinopril 40 mg oral tablet) 1 Tablet(s), Oral, two times a day high blood pressure This is a CHANGE Routed to [address] [address] metFORMIN (metformin 1000 mg oral tablet) 1 Tablet(s), Oral, two times a day with meals diabetes This is a CHANGE Routed to [address] [address] metoprolol (metoprolol tartrate 25 mg oral tablet) 1 Tablet(s), Oral, two times a day omeprazole (omeprazole 20 mg oral delayed release capsule) 1 cap, Oral, once a day simvastatin (simvastatin 40 mg oral tablet) 1 Tablet(s), Oral, once a day (at bedtime) high cholesterol This is a CHANGE Routed to [address] [address] tadalafil (Cialis 20 mg oral [...] MD Signed On:27-JUL-2014 14:12:20 Additional Information: Source: [facility] POWERCHART Document Id: [id number] NT SOLUTIONS MANAGER Miscellaneous - Anne Marie Tuttle L.PPiliN. - 07/27/2014 12:11 PM CST Health Assessment Health Assessment Entered On: 07/27/2014 12:12 CLIENT SOLUTIONS MANAGER Performed On: 07/27/2014 12:11 CLIENT SOLUTIONS MANAGER by ANNE MARIE TUTTLE LPN, RT Health Assessment Complete Health Assessment Complete or Modified : Annual Health Assessment Annual Health Assessment Completed : Yes ANNE MARIE TUTTLE LPN, RT - 07/27/2014 12:11 CLIENT SOLUTIONS MANAGER Nutrition Nutrition Risk Factors by History Adult : None ANNE MARIE TUTTLE LPN, RT - 07/27/2014 12:11 CLIENT SOLUTIONS MANAGER Functional Current Daily Living Assistance : None ANNE MARIE TUTTLE LPN, RT - 07/27/2014 12:11 CLIENT SOLUTIONS MANAGER Dependent Habits Tobacco Use/Currently Using : No Smoking Status : Never smoker ANNE MARIE TUTTLE LPN, RT - 07/27/2014 12:11 CLIENT SOLUTIONS MANAGER Tobacco Use Grid Last Use : never ANNE MARIE TUTTLE LPN, RT - 07/27/2014 12:11 CLIENT SOLUTIONS MANAGER Caffeine Use Grid Caffeine Use : Current Type : Coffee, Soft drinks Frequency : Weekly Amount : soda- weekly; coffee- 1x/week ANNE AMRIE TUTTLE LPN, RT - 07/27/2014 12:11 CLIENT SOLUTIONS MANAGER Recreational Drug Use Grid Drug Use : None ANNE MARIE TUTTLE LPN, RT - 07/27/2014 12:11 CLIENT SOLUTIONS MANAGER Psychosocial Domestic Abuse Concerns : None Latter Day Preference : Unknown ANNE MARIE TUTTLE LPN, RT - 07/27/2014 12:11 CLIENT SOLUTIONS MANAGER Advance Directive Advanced Directives : No Advance Directive Additional Information : No ANNE MARIE TUTTLE LPN, RT - 07/27/2014 12:11 CLIENT SOLUTIONS MANAGER Educ Needs Learning Style Preference Adult Grid Patient : Demonstration, Printed materials, Verbal explanation, Video/Educational TV Family : None ANNE MARIE TUTTLE LPN, RT - 07/27/2014 12:11 CLIENT SOLUTIONS MANAGER Source: [facility] POWERCHART Document Id: [id number] CLIENT SOLUTIONS MANAGER!33 NT SOLUTIONS MANAGER Miscellaneous - Anne Marie Tuttle L.P.N. - 07/27/2014 12:04 PM CST Adult Gin Feeder Intake/History Adult Gin Feeder Intake/History Entered On: 07/27/2014 12:09 CLIENT SOLUTIONS MANAGER Performed On: 07/27/2014 12:04 CLIENT SOLUTIONS MANAGER by ANNE MARIE TUTTLE LPN, RT Intake [...] MARIE TUTTLE LPN, RT - 07/27/2014 12:04 CLIENT SOLUTIONS MANAGER General Info Information Given By : Patient Preferred Communication Mode : Verbal Languages : Panamanian Is Patient Female and 13-50 no hysterectomy : No ANNE MARIE TUTTLE LPN, RT - 07/27/2014 12:04 CLIENT SOLUTIONS MANAGER Subjective Pain Symptoms : Yes ANNE MARIE TUTTLE LPN, RT - 07/27/2014 12:04 CLIENT SOLUTIONS MANAGER Pain Pain Assessment Grid Pain 1 Pain 2 Location : Shoulder Lower leg Laterality : Left Bilateral ANNE MARIE TUTTLE LPN, RT - 07/27/2014 12:04 CLIENT SOLUTIONS MANAGER ANNE MARIE TUTTLE LPN, RT - 07/27/2014 12:04 CLIENT SOLUTIONS MANAGER Dependent Habits Tobacco Use/Currently Using : No Smoking Status : Never smoker ANNE MARIE TUTTLE LPN, RT - 07/27/2014 12:04 CLIENT SOLUTIONS MANAGER Tobacco Use Grid Last Use : never ANNE MARIE TUTTLE LPN, RT - 07/27/2014 12:04 CLIENT SOLUTIONS MANAGER Caffeine Use Grid Caffeine Use : Current Type : Coffee, Soft drinks Frequency : Weekly Amount : soda- weekly; coffee- 1x/week ANNE MARIE TUTTLE LPN, RT - 07/27/2014 12:04 CLIENT SOLUTIONS MANAGER Recreational Drug Use Grid Drug Use : None ANNE MARIE TUTTLE LPN, RT - 07/27/2014 12:04 CLIENT SOLUTIONS MANAGER ID Screen Drug Resistant Organism : No Travel Within Last 21 Days : No ANNE MARIE TUTTLE LPN, RT - 07/27/2014 12:04 CLIENT SOLUTIONS MANAGER Source: [facility] POWERCHART Document Id: [id number] CLIENT SOLUTIONS MANAGER!49 NT SOLUTIONS MANAGER documented in this encounter Plan of Treatment Not on filedocumented as of this encounter Procedures Procedure Name Priority Date/Time Associated Comments Diagnosis CBC WITHOUT Routine 07/27/2014 12:49 Results for this DIFFERENTIAL, B PM CLIENT SOLUTIONS MANAGER procedure ar e in the results section. HEMOGLOBIN A1C, B Routine 07/27/2014 12:49 Result s for this PM CLIENT SOLUTIONS MANAGER procedure are i n the results section. COMPREHENSIVE Routine 07/27/2014 12:49 Results fo r this METABOLIC PANEL, S/P PM CLIENT SOLUTIONS MANAGER procedu re are in the results section. documented in this encounter Results CBC without Differential (07/27/2014 12:49 PM CLIENT SOLUTIONS MANAGER) P athologist Signature Leukocytes 10.2 3.5 - 10.5 POWERCHART X109L Erythrocytes 5.05 4.32 - 5.72 POWERCHART [id number] Hemoglobin 14.5 13.5 - 17.5 POWERCHART GDL Hematocrit 44.9 38.8 - 50.0 POWERCHART MCV 88.9 81.0 - 95.0 POWERCHART FL HX RDW 14.4 11.8 - 15.6 POWERCHART Platelet Count 183 150 - 450 POWERCHART X109L Specimen (Source) Anatomical Collection Method Collection Time Re ceived Time Location / / Volume Laterality Blood 07/27/2014 12:49 PM CLIENT SOLUTIONS MANAGER Cintia Copeland M.D. LAB BLOOD ADD-ON Performing Organization Address City/State/ZIP Code Phon e Number POWERCHART (ABNORMAL) Hemoglobin A1c (07/27/2014 12:49 PM CLIENT SOLUTIONS MANAGER) P athologist Signature Hemoglobin A1c, 8.6 (H) <=5.6 A1C POWERCHART B Specimen (Source) Anatomical Collection Method Collection Time Re ceived Time Location / / Volume Laterality Blood 07/27/2014 12:49 PM CLIENT SOLUTIONS MANAGER Cintia Copeland M.D. LAB BLOOD ADD-ON Performing Organization Address City/State/ZIP Code Phon e Number POWERCHART (ABNORMAL) CMP (Comprehensive Metabolic Panel) (07/27/2014 12:49 PM CLIENT SOLUTIONS MANAGER) Patholo gist Method Time Signature Anion Gap [...] GDL HXeGFR (MDRD) 57 (L) >=60 POWERCHART [id number] 2 eGFR Black/ >60 >=60 POWERCHART Hungarian [id number] 2 Specimen (Source) Anatomical Collection Method Collection Time Re ceived Time Location / / Volume Laterality Blood 07/27/2014 12:49 PM CLIENT SOLUTIONS MANAGER Cintia Copeland M.D. LAB BLOOD ADD-ON Performing Organization Address City/State/ZIP Code Phon e Number POWERCHART documented in this encounter Visit Diagnoses Not on filedocumented in this encounter Additional Health Concerns Assessment Noted Time PHQ-9 Depression Total Score: 18 02/14/2013 9:53 AM CD T documented as of this encounter
--- OUTSIDE RECORDS SUMMARY | 2022-08-05 10:19 | XMS_ITS | Encounter Summary ---
:1960 Author Organization [facility] Address [address] [place] [address] Care Team Providers Name Role Phone Unavailable Primary Care Provider Unavailable Encounter Details Date Type Department Care Team Description 08/10/[address] [facility] [place] Kevin Aguirre M.D. [address] [place] [phone] (Wo rk) Social History Tobacco Use Types Packs/Day Years Used Date Smoking Tobacco: Never Assessed Sex Assigned at Date Recorded Not on file documented as of this encounter Last Filed Vital Signs Vital Sign Reading Time Taken Comments Blood Pressure 155/73 08/10/2014 7:21 PM SOCIAL INSURANCE SPECIALIST Pulse 57 08/10/2014 6:11 PM SOCIAL INSURANCE SPECIALIST Temperature - - Respiratory Rate - - Oxygen Saturation - - Inhaled Oxygen Concentration - - Weight 167 kg (368 lb 2.7 oz) 08/10/2014 6:11 PM SOCIAL INSURANCE SPECIALIST Height 185 cm (6' 0.84) 08/10/2014 7:21 PM SOCIAL INSURANCE SPECIALIST Body Mass Index 48.79 08/10/2014 6:11 PM SOCIAL INSURANCE SPECIALIST documented in this encounter H&P Notes Kevin Cobb M.D. - 08/10/2014 6:05 PM CST [id number] CHIEF COMPLAINT/REASON FOR VISIT Preanesthesia medical exam. HISTORY OF PRESENT ILLNESS Ed is a 54-year-old, male who presents today for preanesthesia medical exam prior to undergoing gastric bypass surgery on August 25 in [facility] in [place]. He has never had any problems with [...] SOCIAL HISTORY Patient is to his , Julissa, for 10 years. He has never been a smoker and does not drink any alcohol. 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 VITAL SIGNS Temperature 36.3. Pulse is 57 [...] pressure as well as his lower extremity delia a. The patient is also a diabetic, [...] KILGORE MD On: 08/24/2014 05:13 PM Source: [facility] MHSDOLBEYNONRADSYS Document Id: [id number] AL INSURANCE SPECIALIST documented in this encounter Nursing Notes Selam Ferrell R.N. - 07/20/2014 1:34 PM CST holter monitor Email sent to Dr. Reyes that the holter monitor and EKG are available for him to review. Electronically Signed By: SELAM FERRELL RN On: 07/20/2014 01:35 PM Modified by and Electronically Signed by: SELAM FERRELL RN On: 07/20/2014 01:35 PM Source: [facility] POWERCHART Document Id: [id number] AL INSURANCE SPECIALIST documented in this encounter Miscellaneous Notes Miscellaneous - Anne Marie Tuttle L.PPiliNPili - 08/10/2014 7:21 PM CST Ambulatory Vitals Height Weight Ambulatory Vitals Height Weight Entered On: 08/10/2014 19:21 SOCIAL INSURANCE SPECIALIST Performed On: 08/10/2014 19:21 SOCIAL INSURANCE SPECIALIST by ANNE MARIE TUTTLE LPN, RT Vitals/Ht/Wt Systolic Blood Pressure : 155 mmHg (HI) Diastolic Blood Pressure : 73 mmHg NIBP Mean : 100 mmHg BP Location : Left upper extremity Blood Pressure Cuff Size : Large Height : 185 cm(Converted to: 6 ft 1 inch(es), 73 inch(es)) ANNE MARIE TUTTLE LPN, RT - 08/10/2014 19:21 SOCIAL INSURANCE SPECIALIST Source: [facility] POWERCHART Document Id: [id number] SOCIAL INSURANCE SPECIALIST!8 AL INSURANCE SPECIALIST Miscellaneous - Kevin Cobb M.D. - 08/10/2014 7:14 PM SOCIAL INSURANCE SPECIALIST Ambulatory Patient Summary [place] - [address] [id number] Visit Information Name: NOEMÍ LUNA [facility] Number: [id number] Current Date: 08/10/2014 19:14:13 Physicians [...] leg swellingThis is a CHANGE Routed to [address] [address] hydrochlorothiazide (hydrochlorothiazide 25 mg oral tablet) 2 [...] appointment detail needed. Your Goals/Additional instructions: Source: [facility] POWERCHART Document Id: [id number] AL INSURANCE SPECIALIST Miscellaneous - Kevin Cobb M.D. - 08/10/2014 7:14 PM SOCIAL INSURANCE SPECIALIST Ambulatory Discharge Medication List [address] [place] [id number] Visit Information Name: NOEMÍ LUNA [facility] Number: [id number] Visit Date: 08/10/2014 19:14:11 Attending [...] leg swellingThis is a CHANGE Routed to [address] [address] hydrochlorothiazide (hydrochlorothiazide 25 mg oral [...] MD Signed On:10-AUG-2014 19:13:51 Additional Information: Source: [facility] POWERCHART Document Id: [id number] AL INSURANCE SPECIALIST Miscellaneous - Anne Marie Tuttle, AlexandreP.N. - 08/10/2014 6:24 PM CST Ambulatory Vitals Height Weight Ambulatory Vitals Height Weight Entered On: 08/10/2014 18:26 SOCIAL INSURANCE SPECIALIST Performed On: 08/10/2014 18:24 SOCIAL INSURANCE SPECIALIST by ANNE MARIE TUTTLE LPN, RT Vitals/Ht/Wt Systolic Blood Pressure : 162 mmHg (>HHI) Diastolic Blood Pressure : 84 mmHg NIBP Mean : 110 mmHg BP Location : Left upper extremity Blood Pressure Cuff Size : Large Height : 185 cm(Converted to: 6 ft 1 inch(es), 73 inch(es)) ANNE MARIE TUTTLE LPN, - 08/10/2014 18:24 SOCIAL INSURANCE SPECIALIST Source: [facility] POWERCHART Document Id: [id number] SOCIAL INSURANCE SPECIALIST!8 AL INSURANCE SPECIALIST Miscellaneous - Anne Maire Tuttle L.P.N. - 08/10/2014 6:20 PM CST Obstructive Sleep Apnea Obstructive Sleep Apnea Entered On: 08/10/2014 18:22 SOCIAL INSURANCE SPECIALIST Performed On: 08/10/2014 18:20 SOCIAL INSURANCE SPECIALIST by ANNE MARIE TUTTLE LPN, RT CELESTE Screening Known Obstructive Sleep Apnea : No - NOT diagnosed with CELESTE ANNE MARIE TUTTLE LPN, RT - 08/10/2014 18:20 SOCIAL INSURANCE SPECIALIST CELESTE Assessment Do you have high blood [...] ANNE MARIE TUTTLE LPN, - 08/10/2014 18:20 SOCIAL INSURANCE SPECIALIST [facility] Document Id: [id number] SOCIAL INSURANCE SPECIALIST!10 AL INSURANCE SPECIALIST Miscellaneous - Anne Marie Tuttle L.P.N. - 08/10/2014 6:11 PM CST Adult Automation Test Developer Intake/History Adult Automation Test Developer Intake/History Entered On: 08/10/2014 18:15 SOCIAL INSURANCE SPECIALIST Performed On: 08/10/2014 18:11 SOCIAL INSURANCE SPECIALIST by ANNE MARIE TUTTLE LPN, RT Intake Chief Complaint : preop. surgery gastricbypass in 08/25/2014 [place] Ambulatory Intake Additional Information : concerned about [...] MARIE Lindsay LPN, RT - 08/10/2014 18:11 SOCIAL INSURANCE SPECIALIST General Info Information Given By : Patient Preferred Communication Mode : Verbal Languages : Urdu Is Patient Female and 13-50 no hysterectomy : No TONYA ANNE MARIE Lindsay LPN, RT - 08/10/2014 18:11 SOCIAL INSURANCE SPECIALIST Subjective Pain Symptoms : Yes TONYA ANNE MARIE Lindsay LPN, RT - 08/10/2014 18:11 SOCIAL INSURANCE SPECIALIST Pain Pain Assessment Grid Pain 1 Location : Lower back Laterality : Right ANNE MARIE TUTTLE Angélica ZURITA, RT - 08/10/2014 18:11 SOCIAL INSURANCE SPECIALIST Dependent Habits Tobacco Use/Currently Using : No Smoking Status : Never smoker ANNE MARIE TUTTLE LPN, RT - 08/10/2014 18:11 SOCIAL INSURANCE SPECIALIST Tobacco Use Grid Last Use : never TONYA ANNE MARIE Linsday LPN, RT - 08/10/2014 18:11 SOCIAL INSURANCE SPECIALIST Caffeine Use Grid Caffeine Use : Current Type : Coffee, Soft drinks Frequency : Weekly Amount : soda- weekly; coffee- 1x/week TONYA ANNE MARIE Lindsay LPN, RT - 08/10/2014 18:11 SOCIAL INSURANCE SPECIALIST Recreational Drug Use Grid Drug Use : None TONYA ANNE MARIE Lindsay LPN, RT - 08/10/2014 18:11 SOCIAL INSURANCE SPECIALIST ID Screen Drug Resistant Organism : No Travel Within Last 21 Days : No TONYA ANNE MARIE Lindsay LPN, RT - 08/10/2014 18:11 SOCIAL INSURANCE SPECIALIST [facility] Document Id: [id number] SOCIAL INSURANCE SPECIALIST!47 AL INSURANCE SPECIALIST documented in this encounter Plan of Treatment Not on filedocumented as of this encounter Visit Diagnoses Not on filedocumented in this encounter Additional Health Concerns Assessment Noted Time PHQ-9 Depression Total Score: 18 02/14/2013 9:53 AM CD T documented as of this encounter
--- OUTSIDE RECORDS SUMMARY | 2022-08-05 10:19 | XMS_ITS | Encounter Summary ---
:1960 Author Organization [facility] Address [address] [place] [address] Care Team Providers Name Role Phone Unavailable Primary Care Provider Unavailable Encounter Details Date Type Department Care Team Description 08/24/2014 Hospital Encounter [facility]X [facility] Cintia Aguirre M.D. [address] [place] [phone] (Wo rk) Social History Tobacco Use Types Packs/Day Years Used Date Smoking Tobacco: Never Assessed Sex Assigned at Date Recorded Not on file documented as of this encounter Last Filed Vital Signs Vital Sign Reading Time Taken Comments Blood Pressure 131/72 08/24/2014 6:30 PM ELECTRO WINNING OPERATOR Pulse 49 08/24/2014 6:22 PM ELECTRO WINNING OPERATOR Temperature - - Respiratory Rate - - Oxygen Saturation - - Inhaled Oxygen Concentration - - Weight 156 kg (343 lb 14.7 oz) 08/24/2014 6:22 PM ELECTRO WINNING OPERATOR Height 185 cm (6' 0.84) 08/24/2014 6:30 PM ELECTRO WINNING OPERATOR Body Mass Index 45.58 08/24/2014 6:22 PM ELECTRO WINNING OPERATOR documented in this encounter Progress Notes Cintia Cobb M.D. - 08/24/2014 5:44 PM CST [id number] CHIEF COMPLAINT/REASON FOR VISIT Follow up diabetes. [...] him to a program perhaps at the [facility]. He is uncertain if insurance would approve [...] the bariatric surgery program up at the [facility], but I think he would likely have to start all the way at the beginning again and he has already completed all of that work with [facility]. I cer tainly respect his decision if that is where he prefers to go, but I strongly encouraged him to reconsider going to [place] because I do feel that his problems are coming under control and his surgery was not necessarily canceled so much as postponed until we could get things to be a little more stable. The patient reports that he does not want to see the same surgeon but he would be willing to seeanother surgeon at [facility]. At this point, I will e-mail Dr. [...] KILGORE MD On: 09/04/2014 08:55 AM Source: [facility] MHSDOLBEYNONRADSYS Document Id: [id number] TRO WINNING OPERATOR documented in this encounter Miscellaneous Notes Miscellaneous - Cintia Cobb M.D. - 08/24/2014 6:59 PM ELECTRO WINNING OPERATOR Ambulatory Patient Summary [address] [place] [id number] Visit Information Name: LAZ LUNA [facility] Number: [id number] Current Date: 08/24/2014 18:59:47 [...] appointment detail needed. Your Goals/Additional instructions: Source: [facility] POWERCHART Document Id: [id number] TRO WINNING OPERATOR Miscellaneous - Cintia Cobb M.D. - 08/24/2014 6:59 PM ELECTRO WINNING OPERATOR Ambulatory Discharge Medication List [address] [place] [id number] Visit Information Name: LAZ LUNA [facility] Number: [id number] Visit Date: 08/24/2014 18:59:45 [...] MD Signed On:24-AUG-2014 18:59:28 Additional Information: Source: [facility] CaskCHART Document Id: [id number] TRO WINNING OPERATOR Miscellaneous - Anne Marie Tuttle L.P.N. - 08/24/2014 6:30 PM CST Ambulatory Vitals Height Weight Ambulatory Vitals Height Weight Entered On: 08/24/2014 18:31 ELECTRO WINNING OPERATOR Performed On: 08/24/2014 18:30 ELECTRO WINNING OPERATOR by ANNE MARIE TUTTLE LPN, RT Vitals/Ht/Wt Systolic Blood Pressure : 131 mmHg Diastolic Blood Pressure : 72 mmHg NIBP Mean : 92 mmHg BP Location : Left upper extremity Blood Pressure Cuff Size : Large Height : 185 cm(Converted to: 6 ft 1 inch(es), 73 inch(es)) ANNE MARIE TUTTLE LPN, RT - 08/24/2014 18:30 ELECTRO WINNING OPERATOR Source: [facility] POWERCHART Document Id: [id number] ELECTRO WINNING OPERATOR!8 TRO WINNING OPERATOR Miscellaneous - Anne Marie Tuttle L.P.NPili - 08/24/2014 6:22 PM CST Adult Leases And Land Supervisor Intake/History Adult Leases And Land Supervisor Intake/History Entered On: 08/24/2014 18:27 ELECTRO WINNING OPERATOR Performed On: 08/24/2014 18:22 ELECTRO WINNING OPERATOR by ANNE MARIE TUTTLE LPN, RT [...] MARIE TUTTLE LPN, RT - 08/24/2014 18:22 ELECTRO WINNING OPERATOR General Info Information Given By : Patient Preferred Communication Mode : Verbal Languages : Thai Is Patient Female and 13-50 no hysterectomy : No ANNE MARIE TUTTLE LPN, RT - 08/24/2014 18:22 ELECTRO WINNING OPERATOR Subjective Pain Symptoms : No ANNE MARIE TUTTLE LPN, RT - 08/24/2014 18:22 ELECTRO WINNING OPERATOR Dependent Habits Tobacco Use/Currently Using : No Smoking Status : Never smoker ANNE MARIE TUTTLE LPN, RT - 08/24/2014 18:22 ELECTRO WINNING OPERATOR Tobacco Use Grid Last Use : never ANNE MARIE TUTTLE LPN, RT - 08/24/2014 18:22 ELECTRO WINNING OPERATOR Caffeine Use Grid Caffeine Use : Current Type : Coffee, Soft drinks Frequency : Weekly Amount : soda- weekly; coffee- 1x/week ANNE MARIE TUTTLE LPN, RT - 08/24/2014 18:22 ELECTRO WINNING OPERATOR Recreational Drug Use Grid Drug Use : None ANNE MARIE TUTTLE LPN, RT - 08/24/2014 18:22 ELECTRO WINNING OPERATOR ID Screen Drug Resistant Organism : No Travel Within Last 21 Days : No ANNE MARIE TUTTLE LPN, RT - 08/24/2014 18:22 ELECTRO WINNING OPERATOR Source: 1-800-DENTISTCHART Document Id: [id number] ELECTRO WINNING OPERATOR!41 TRO WINNING OPERATOR documented in this encounter Plan of Treatment Not on filedocumented as of this encounter Visit Diagnoses Not on filedocumented in this encounter Additional Health Concerns Assessment Noted Time PHQ-9 Depression Total Score: 18 02/14/2013 9:53 AM CD T documented as of this encounter
--- OUTSIDE RECORDS SUMMARY | 2022-08-05 10:19 | XMS_ITS | Encounter Summary ---
:1960 Author Organization [facility] Address [address] [place] [address] Care Team Providers Name Role Phone Unavailable Primary Care Provider Unavailable Encounter Details Date Type Department Care Team Description 08/17/2014 Hospital Encounter [facility] [place] Cintia Aguirre M.D. [address] [place] [phone] (Wo rk) Social History Tobacco Use Types Packs/Day Years Used Date Smoking Tobacco: Never Assessed Sex Assigned at Date Recorded Not on file documented as of this encounter Last Filed Vital Signs Vital Sign Reading Time Taken Comments Blood Pressure 148/81 08/17/2014 2:06 PM MEDICAL BILLING COORDINATOR Pulse 53 08/17/2014 2:06 PM MEDICAL BILLING COORDINATOR Temperature - - Respiratory Rate - - Oxygen Saturation - - Inhaled Oxygen Concentration - - Weight 160 kg (352 lb 8.3 oz) 08/17/2014 2:06 PM MEDICAL BILLING COORDINATOR Height 185 cm (6' 0.84) 08/17/2014 2:06 PM MEDICAL BILLING COORDINATOR Body Mass Index 46.72 08/17/2014 2:06 PM MEDICAL BILLING COORDINATOR documented in this encounter Progress Notes Cintia Cobb M.D. - 08/17/2014 2:02 PM CST [id number] CHIEF COMPLAINT/REASON FOR VISIT Follow up pneumonia [...] point, and he is waiting for the headend technician to give him a call back. 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 - 08/17/2014 2:36 PM MEDICAL BILLING COORDINATOR Ambulatory Patient Summary [address] [id number] Visit Information Name: LAZ LUNA [facility] Number: [id number] Current Date: 08/17/2014 14:36:05 Physicians [...] appointment detail needed. Your Goals/Additional instructions: Source: [facility] POWERCHART Document Id: [id number] CAL BILLING COORDINATOR Miscellaneous - Cintia Cobb M.D. - 08/17/2014 2:36 PM MEDICAL BILLING COORDINATOR Ambulatory Discharge Medication List [address] [id number] Visit Information Name: LAZ LUNA [facility] Number: [id number] Visit Date: 08/17/2014 14:36:03 Attending [...] MD Signed On:17-AUG-2014 14:35:44 Additional Information: Source: [facility] POWERCHART Document Id: [id number] CAL BILLING COORDINATOR Miscellaneous - Anne Marie Tuttle L.P.N. - 08/17/2014 2:06 PM CST Adult Perinatal Director Intake/History Adult Perinatal Director Intake/History Entered On: 08/17/2014 14:08 MEDICAL BILLING COORDINATOR Performed On: 08/17/2014 14:06 MEDICAL BILLING COORDINATOR by ANNE MARIE TUTTLE LPN, RT Intake [...] MARIE TUTTLE LPN, RT - 08/17/2014 14:06 MEDICAL BILLING COORDINATOR General Info Information Given By : Patient Preferred Communication Mode : Verbal Languages : Kenyan Is Patient Female and 13-50 no hysterectomy : No ANNE MARIE TUTTLE LPN, RT - 08/17/2014 14:06 MEDICAL BILLING COORDINATOR Subjective Pain Symptoms : No ANNE MARIE TUTTLE LPN, RT - 08/17/2014 14:06 MEDICAL BILLING COORDINATOR Dependent Habits Tobacco Use/Currently Using : No Smoking Status : Never smoker ANNE MARIE TUTTLE LPN, RT - 08/17/2014 14:06 MEDICAL BILLING COORDINATOR Tobacco Use Grid Last Use : never ANNE MARIE TUTTLE LPN, RT - 08/17/2014 14:06 MEDICAL BILLING COORDINATOR Caffeine Use Grid Caffeine Use : Current Type : Coffee, Soft drinks Frequency : Weekly Amount : soda- weekly; coffee- 1x/week ANNE MARIE TUTTLE LPN, RT - 08/17/2014 14:06 MEDICAL BILLING COORDINATOR Recreational Drug Use Grid Drug Use : None ANNE MARIE TUTTLE LPN, RT - 08/17/2014 14:06 MEDICAL BILLING COORDINATOR ID Screen Drug Resistant Organism : No Travel Within Last 21 Days : No ANNE MARIE TUTTLE LPN, RT - 08/17/2014 14:06 MEDICAL BILLING COORDINATOR Source: [facility] [employer] Document Id: [id number] MEDICAL BILLING COORDINATOR!41 CAL BILLING COORDINATOR documented in this encounter Plan of Treatment Not on filedocumented as of this encounter Visit Diagnoses Not on filedocumented in this encounter Additional Health Concerns Assessment Noted Time PHQ-9 Depression Total Score: 18 02/14/2013 9:53 AM CD T documented as of this encounter
--- OUTSIDE RECORDS SUMMARY | 2022-08-05 10:19 | XMS_ITS | Encounter Summary ---
:[address] [facility] Address [address] [place] [address] Care Team Providers Name Role Phone Unavailable Primary Care Provider Unavailable Encounter Details Date Type Department Care Team Description 11/20/2014 Hospital Encounter [facility] [place] Cintia Aguirre M.D. [address] [place] [phone] (Wo rk) Social History Tobacco Use [...] and knee. Vascular calcification. Kelsey Peterson MD. [id number] 20-Nov-2014 11:57 [1] Report 20-Nov-2014 11:54:00 Exam: [...] Ordered: OV Est Pt Level 4 - 29643 - 25 min 2. Pain Hip R Evidence of arthritis on xray. Again hopefully, rest and weight loss will improve his discomfort. Tylenol for pain. Ordered: OV Est Pt Level 4 - 21666 - 25 min 3. Insufficiency Renal NOS Patient's last creatinine was up a little more at 1.43. I did have the opportunity to speak with his surgical team in [place]. Certainly his diabetes and hypertension could be damaging his kidneys and the diuretics are exacerbating that. I am hoping that as he loses weight, we will be able to decrease some of him medications and hopefully see some improvement. Ordered: OV Est Pt Level 4 - 17910 - 25 min 4. Obesity Medically Complicated [...] Ordered: OV Est Pt Level 4 - 54471 - 25 min FOOTNOTES [1]XR Knee Right 2 or less views; CLARKE SOLIZ 11/20/2014 11:52 CDT [2]XR Hip Right 2 or more views; CLARKE SOLIZ 11/20/2014 11:51 CDT Electronically Signed By: CINTIA KILGORE MD On: 11/21/2014 07:08 AM Source: [employer] Document Id: [id number] documented in this encounter Miscellaneous Notes Miscellaneous [...] LPN, RT - 11/20/2014 12:06 CDT Source: [employer] Document Id: [id number] CDT!8 Miscellaneous - Cintia Cobb M.D. - 11/20/2014 11:18 AM CDT Ambulatory Patient Summary [address] [id number] Visit Information Name: LAZ LUNA [facility] Number: [id number] Current Date: 11/20/2014 11:18:39 Physicians [...] appointment detail needed. Your Goals/Additional instructions: Source: [employer] POWERCHART Document Id: [id number] Miscellaneous - Cintia Cobb M.D. - 11/20/2014 11:18 AM CDT Ambulatory Discharge Medication List [address] [id number] Visit Information Name: LAZ LUNA [facility] Number: [id number] Visit Date: 11/20/2014 11:18:37 Attending [...] Signed By: Signed On: Additional Information: Source: [facility] POWERCHART Document Id: [id number] Miscellaneous - Anne Marie Tuttle L.P.N. - 11/20/2014 10:51 AM CDT Adult Grid Operator Intake/History Adult Grid Operator Intake/History Entered On: 11/20/2014 10:53 CDT [...] Preferred Communication Mode : Verbal Languages : Ecuadorean Is Patient Female and 13-50 no hysterectomy [...] LPN, RT - 11/20/2014 10:51 CDT Source: [employer] Document Id: [id number] CDT!53 documented in this encounter Plan of Treatment Not on filedocumented as of this encounter Visit Diagnoses Not on filedocumented in this encounter Additional Health Concerns Assessment Noted Time PHQ-9 Depression Total Score: 18 02/14/2013 9:53 AM CD T documented as of this encounter
--- OUTSIDE RECORDS SUMMARY | 2022-08-05 10:19 | XMS_ITS | Encounter Summary ---
:1960 Author Organization [facility] Address [address] [place] [address] Care Team Providers Name Role Phone Unavailable Primary Care Provider Unavailable Encounter Details Date Type Department Care Team Description 09/21/2014 Hospital Encounter HX [facility] Cintia Aguirre M.D. [address] [place] [phone] (Wo rk) Social History Tobacco Use Types Packs/Day Years Used Date Smoking Tobacco: Never Assessed Sex Assigned at Date Recorded Not on file documented as of this encounter Last Filed Vital Signs Vital Sign Reading Time Taken Comments Blood Pressure 149/70 09/21/2014 7:07 PM CHECK PROCESSING CLERK Pulse 64 09/21/2014 6:09 PM CHECK PROCESSING CLERK Temperature - - Respiratory Rate - - Oxygen Saturation - - Inhaled Oxygen Concentration - - Weight 157 kg (345 lb 0.3 oz) 09/21/2014 6:09 PM CHECK PROCESSING CLERK Height 185 cm (6' 0.84) 09/21/2014 7:07 PM CHECK PROCESSING CLERK Body Mass Index 45.73 09/21/2014 6:09 PM CHECK PROCESSING CLERK documented in this encounter Progress Notes Cintia Cobb M.D. - 09/21/2014 6:03 PM CST [id number] CHIEF COMPLAINT/REASON FOR VISIT Follow up chronic problems. HISTORY OF PRESENT ILLNESS Ed is a 54-year-old male who presents today to follow up on chronic problems. He also has questions about the Lap-Band. He is set up for appointments with Bariatric Surgery in [place] againthe beginning of October but he reports [...] about 1 week. We will also get yzpqvgrelq-wn-urhsnwqjvk ratio. The blood sugars he gives are [...] have an open MRI up in [facility]. He will thinkabout what he would like [...] bariatric surgery which was previously planned in [place]. He is going to keep his appointment in [place] at this time. 6. Hypertension. Patient's blood [...] KILGORE MD On: 10/02/2014 02:41 PM Source: [facility] MHSDOLBEYNONRADSYS Document Id: [id number] K PROCESSING CLERK documented in this encounter Miscellaneous Notes Miscellaneous - Anne Marie Tuttle L.P.N. - 09/21/2014 7:07 PM CST Ambulatory Vitals Height Weight Ambulatory Vitals Height Weight Entered On: 09/21/2014 19:08 CHECK PROCESSING CLERK Performed On: 09/21/2014 19:07 CHECK PROCESSING CLERK by ANNE MARIE TUTTLE LPN, RT Vitals/Ht/Wt Systolic Blood Pressure : 149 mmHg (HI) Diastolic Blood Pressure : 70 mmHg NIBP Mean : 96 mmHg BP Location : Left upper extremity Blood Pressure Cuff Size : Large Height : 185 cm(Converted to: 6 ft 1 inch(es), 73 inch(es)) ANNE MARIE TUTTLE LPN, RT - 09/21/2014 19:07 CHECK PROCESSING CLERK Source: [facility] POWERCHART Document Id: [id number] CHECK PROCESSING CLERK!8 K PROCESSING CLERK Miscellaneous - Cintia Cobb M.D. - 09/21/2014 6:52 PM CHECK PROCESSING CLERK Ambulatory Patient Summary [address] [id number] Visit Information Name: LAZ LUNA [facility] Number: [id number] Current Date: 09/21/2014 [...] Consult: _ Release of MR_ PHI_ Source: [facility] POWERCHART Document Id: [id number] K PROCESSING CLERK Miscellaneous - Cintia Cobb M.D. - 09/21/2014 6:52 PM CHECK PROCESSING CLERK Ambulatory Discharge Medication List [address] [id number] Visit Information Name: LAZ LUNA [facility] Number: [id number] Visit Date: 09/21/2014 [...] MD Signed On:21-SEP-2014 18:51:42 Additional Information: Source: [facility] POWERCHART Document Id: [id number] K PROCESSING CLERK Miscellaneous - Anne Marie Tuttle L.PPiliN. - 09/21/2014 6:21 PM CST Quality Measures Quality Measures Entered On: 09/21/2014 18:23 CHECK PROCESSING CLERK Performed On: 09/21/2014 18:21 CHECK PROCESSING CLERK by ANNE MARIE TUTTLE LPN, Diabetes Date of Last Eye Exam : 09/12/2014 CHECK PROCESSING CLERK ANNE MARIE TUTTLE LPN, RT - 09/21/2014 18:21 CHECK PROCESSING CLERK Source: [facility] POWERCHART Document Id: [id number] CHECK PROCESSING CLERK!3 K PROCESSING CLERK Miscellaneous - Anne Marie Tuttle L.PPiliN. - 09/21/2014 6:09 PM CST Adult Business Relations Manager Intake/History Adult Business Relations Manager Intake/History Entered On: 09/21/2014 18:16 CHECK PROCESSING CLERK Performed On: 09/21/2014 18:09 CHECK PROCESSING CLERK by ANNE MARIE TUTTLE LPN, RT Intake [...] MARIE TUTTLE LPN, RT - 09/21/2014 18:09 CHECK PROCESSING CLERK General Info Information Given By : Patient Preferred Communication Mode : Verbal Languages : [place] Is Patient Female and 13-50 no hysterectomy : No ANNE MARIE TUTTLE LPN, RT - 09/21/2014 18:09 CHECK PROCESSING CLERK Subjective Pain Symptoms : No ANNE MARIE TUTTLE LPN, RT - 09/21/2014 18:09 CHECK PROCESSING CLERK Dependent Habits Tobacco Use/Currently Using : No Smoking Status : Never smoker ANNE MARIE TUTTLE LPN, RT - 09/21/2014 18:09 CHECK PROCESSING CLERK Tobacco Use Grid Last Use : never ANNE MARIE TUTTLE LPN, RT - 09/21/2014 18:09 CHECK PROCESSING CLERK Caffeine Use Grid Caffeine Use : Current Type : Coffee, Soft drinks Frequency : Weekly Amount : soda- weekly; coffee- 1x/week ANNE MARIE TUTTLE LPN, RT - 09/21/2014 18:09 CHECK PROCESSING CLERK Recreational Drug Use Grid Drug Use : None ANNE MARIE TUTTLE LPN, RT - 09/21/2014 18:09 CHECK PROCESSING CLERK ID Screen Drug Resistant Organism : No Travel Within Last 21 Days : No ANNE MARIE TUTTLE LPN, RT - 09/21/2014 18:09 CHECK PROCESSING CLERK Source: [employer] Document Id: [id number] CHECK PROCESSING CLERK!41 K PROCESSING CLERK documented in this encounter Plan of Treatment Not on filedocumented as of this encounter Visit Diagnoses Not on filedocumented in this encounter Additional Health Concerns Assessment Noted Time PHQ-9 Depression Total Score: 18 02/14/2013 9:53 AM CD T documented as of this encounter
--- OUTSIDE RECORDS SUMMARY | 2022-08-05 10:19 | XMS_ITS | Encounter Summary ---
:1960 Author Organization [facility] Address [address] [place] [address] Care Team Providers Name Role Phone Unavailable [...] Results Glucose, POCT (11/27/2014 11:59 AM CDT) [facility] Method Time Signature Last Intake 2-3 hours [facility] LABORATORIES [facility] Glucose, 137 70 - 140 [facility] POCT, B MG/DL LABORATORIES - [facility] Sample Site, Capillary [facility] Blood Gas, LABORATORIES - POCT [facility] Specimen Anatomical Collection Method Collection Time Receive d Time (Source) Location / / Volume Laterality 11/27/2014 11:59 11/27/2014 AM CDT 11:59 AM CDT Historical Provider LAB POCT ORDERABLES-MANUAL Performing Organization Address City/State/ZIP Code Phon e Number [facility] LABORATORIES - [address] [place], [place] [address] [facility] Glucose, POCT (11/27/2014 6:26 AM CDT) [facility] Method Time Signature Last Intake > 4 hours [facility] Glucose, 135 70 - 140 [facility] POCT, B MG/DL LABORATORIES - [facility] Sample Site, Capillary [facility] Blood Gas, LABORATORIES - POCT [facility] Specimen Anatomical Collection Method Collection Time Receive d Time (Source) Location / / Volume Laterality 11/27/2014 6:26 AM 5 6:26 CDT AM CDT Historical Provider LAB POCT ORDERABLES-MANUAL Performing Organization Address City/[facility] Phon e Number [facility] LABORATORIES - [address] [place] [address] [facility] (ABNORMAL) Glucose, POCT (11/26/2014 10:21 PM CDT) [facility] Method Time Signature Glucose, 144 (H) 70 - 140 [facility] POCT, B MG/DL LABORATORIES - [facility] Sample Site, Capillary [facility] Blood Gas, LABORATORIES - POCT [facility] Last Intake > 4 hours [facility] Specimen Anatomical Collection Method Collection Time Receive d Time (Source) Location / / Volume Laterality 11/26/2014 10:21 11/26/2014 PM CDT 10:21 PM CDT Historical Provider LAB POCT ORDERABLES-MANUAL Performing Organization Address [facility] Phon e Number [facility] LABORATORIES - [address] [place] [phone] [facility] (ABNORMAL) Glucose, POCT (11/26/2014 5:49 PM CDT) [facility] Method Time Signature Glucose, 167 (H) 70 - 140 [facility] POCT, B MG/DL LABORATORIES - [facility] Sample Site, Capillary [facility] Blood Gas, LABORATORIES - POCT [facility] Last Intake 2-3 hours [facility] Specimen Anatomical Collection Method Collection Time Receive d Time (Source) Location / / Volume Laterality 11/26/2014 5:49 PM 5 5:49 CDT PM CDT Historical Provider LAB POCT ORDERABLES-MANUAL Performing Organization Address City/[facility] Phon e Number [facility] LABORATORIES - [address] [place] [phone] [facility] (ABNORMAL) Glucose, POCT (11/26/2014 11:48 AM CDT) [facility] Signature Glucose, POCT, 147 (H) 70 - 140 [facility] B MG/DL [facility] - [facility] Specimen Anatomical Collection Method Collection Time Receive d Time (Source) Location / / Volume Laterality 11/26/2014 11:48 11/26/2014 AM CDT 11:48 AM CDT Historical Provider LAB POCT ORDERABLES-MANUAL Performing Organization Address City/[facility] Phon e Number [facility] LABORATORIES - [address] [place] [phone] [facility] (ABNORMAL) Electrolyte (Chem 4) Panel (11/26/2014 7:18 AM CDT) [facility] Signature Sodium, S 140 135 - 145 [facility] MMOL/L [facility] Potassium, S 4.0 3.6 - 5.2 [facility] MMOL/L [facility] Chloride, S 98 98 - 107 [facility] MMOL/L [facility] - [facility] HX Bicarbonate, 29 22 - 29 [facility] P/S MMOL/L LABORATORIES - [facility] Creatinine 1.1 0.8 - 1.3 [facility] MG/DL LABORATORIES - [facility] eGFR >60 >60 [facility] Non-Black/Afric ML/MIN/BSA LABORATORIES - an Turkmen [facility] eGFR-Black/Afri >60 >60 [facility] can Turkmen ML/MIN/BSA LABORATORIES - [facility] BUN (Blood Urea 27 (H) 8 - 24 [facility] Nitrogen), S MG/DL LABORATORIES - [facility] Anion Gap 13 7 - 15 [facility] LABORATORIES - [facility] Glucose, S 139 70 - 140 [facility] MG/DL LABORATORIES - [facility] Specimen Anatomical Collection Method Collection Time Receive d Time (Source) Location / / Volume Laterality 11/26/2014 7:18 AM 5 7:18 CDT AM CDT Shane Mendes M.D. LAB BLOOD ADD-ON Performing Organization Address City/[facility]/ZIP Code Phon e Number [facility] LABORATORIES - [address] [place] [phone] [facility] Magnesium (11/26/2014 7:18 AM CDT) P athologist Signature Magnesium, S 1.8 1.7 - 2.3 [facility] MG/DL LABORATORIES - [facility] Specimen Anatomical Collection Method Collection Time Receive d Time (Source) Location / / Volume Laterality 11/26/2014 7:18 AM 5 7:18 CDT AM CDT Shane Mendes M.D. LAB BLOOD ADD-ON Performing Organization Address City/[facility]/ZIP Code Phon e Number [facility] LABORATORIES - [address] [place] [phone] [facility] Phosphorus Inorganic (11/26/2014 7:18 AM CDT) Analysis Performed At Patho logist Time Signature Phosphorus 2.5 2.5 - 4.5 [facility] (Inorganic), S MG/DL LABORATORIES - [facility] Specimen Anatomical Collection Method Collection Time Receive d Time (Source) Location / / Volume Laterality 11/26/2014 7:18 AM 5 7:18 CDT AM CDT Shane Mendes M.D. LAB BLOOD ADD-ON Performing Organization Address City/[facility]/ZIP Code Phon e Number [facility] LABORATORIES - [address] [place] [phone] [facility] (ABNORMAL) Glucose, POCT (11/26/2014 6:43 AM CDT) [facility] gist Method Time Signature Last Intake > 4 hours [facility] Glucose, 145 (H) 70 - 140 [facility] POCT, B MG/DL LABORATORIES - [facility] Sample Site, Capillary [facility] Blood Gas, LABORATORIES - POCT [facility] Specimen Anatomical Collection Method Collection Time Receive d Time (Source) Location / / Volume Laterality 11/26/2014 6:43 AM 5 6:43 CDT AM CDT Historical Provider LAB POCT ORDERABLES-MANUAL Performing Organization Address City/[facility]/ZIP Code Phon e Number [facility] LABORATORIES - [address] [place], [place] [address] [facility] (ABNORMAL) Glucose, POCT (11/25/2014 9:56 PM CDT) [facility] Method Time Signature Last Intake 2-3 hours [facility] Glucose, 145 (H) 70 - 140 [facility] POCT, B MG/DL LABORATORIES - [facility] Sample Site, Capillary [facility] Blood Gas, LABORATORIES - POCT [facility] Specimen Anatomical Collection Method Collection Time Receive d Time (Source) Location / / Volume Laterality 11/25/2014 9:56 PM 5 9:56 CDT PM CDT Historical Provider LAB POCT ORDERABLES-MANUAL Performing Organization Address City/State/ZIP Code Phon e Number [facility] LABORATORIES - [address] [place], [place] [address] [facility] (ABNORMAL) Glucose, POCT (11/25/2014 5:35 PM CDT) [facility] Method Time Signature Glucose, 207 (H) 70 - 140 [facility] POCT, B MG/DL LABORATORIES [facility] Sample Site, Capillary [facility] Blood Gas, LABORATORIES - POCT [facility] Last Intake 2-3 hours [facility] Specimen Anatomical Collection Method Collection Time Receive d Time (Source) Location / / Volume Laterality 11/25/2014 5:35 PM 5 5:35 CDT PM CDT Historical Provider LAB POCT ORDERABLES-MANUAL Performing Organization Address City/State/ZIP Code Phon e Number [facility] LABORATORIES - [address] [place], [place] [address] [facility] (ABNORMAL) Glucose, POCT (11/25/2014 2:47 PM CDT) [facility] Method Time Signature Glucose, POCT, 189 (H) 70 - 140 [facility] B MG/DL LABORATORIES - [facility] Last Intake 3-4 hours [facility] Specimen Anatomical Collection Method Collection Time Receive d Time (Source) Location / / Volume Laterality 11/25/2014 2:47 PM 5 2:47 CDT PM CDT Historical Provider LAB POCT ORDERABLES-MANUAL Performing Organization Address City/[facility] Code Phon e Number [facility] LABORATORIES - [address] [place], [place] [address] [facility] (ABNORMAL) Glucose, POCT (11/25/2014 6:40 AM CDT) [facility] Time Signature Glucose, 158 (H) 70 - 140 [facility] POCT, B MG/DL LABORATORIES - [facility] Sample Site, Capillary [facility] Blood Gas, LABORATORIES - POCT [facility] Last Intake > 4 hours [facility] Specimen Anatomical Collection Method Collection Time Receive d Time (Source) Location / / Volume Laterality 11/25/2014 6:40 AM 5 6:40 CDT AM CDT Historical Provider LAB POCT ORDERABLES-MANUAL Performing Organization Address City/State/[facility] Code Phon e Number [facility] LABORATORIES - [address] [place], [place] [address] [facility] (ABNORMAL) CBC with Differential (11/25/2014 4:09 AM CDT) [facility] Signature Hemoglobin 14.7 13.5 - [facility] 17.5 G/DL [facility] Hematocrit 46.3 38.8 - [facility] 50.0 % [facility] RBC Distrib 15.8 (H) 11.8 - [facility] Width 15.6 % [facility] Platelet Count 168 150 - 450 [facility] X10(9)/L [facility] Lymphocytes 1.42 0.90 - [facility] 2.90 LABORATORIES - X10(9)/L [facility] Monocytes 1.43 (H) 0.30 - [facility] 0.90 LABORATORIES - X10(9)/L [facility] Erythrocytes 5.09 4.32 - [facility] 5.72 LABORATORIES - X10(12)/L [facility] MCV 91.0 81.2 - [facility] 95.1 [place] LABORATORIES - [facility] Leukocytes 11.2 (H) 3.5 - [facility] 10.5 LABORATORIES - X10(9)/L [facility] Neutrophils 8.00 (H) 1.70 - [facility] 7.00 LABORATORIES - X10(9)/L [facility] Eosinophils 0.34 0.05 - [facility] 0.50 LABORATORIES - X10(9)/L [facility] Basophils 0.04 0.00 - [facility] 0.30 LABORATORIES - X10(9)/L [facility] Specimen Anatomical Collection Method Collection Time Receive d Time (Source) Location / / Volume Laterality 11/25/2014 4:09 AM 5 4:09 CDT AM CDT Berkley Kaufman M.D. LAB BLOOD ADD-ON Performing Organization Address City/State/ZIP Code Phon e Number [facility] LABORATORIES - [address] [place], [place] [address] [facility] (ABNORMAL) Electrolyte (Chem 4) Panel (11/25/2014 4:09 AM CDT) [facility] gist Method Time Signature Chloride, S 100 98 - 107 [facility] MMOL/L LABORATORIES [facility] HX Bicarbonate, 30 (H) 22 - 29 [facility] P/S MMOL/L LABORATORIES [facility] eGFR-Black/Afri >60 >60 [facility] can Turkmen ML/MIN/BS LABORATORIES - A [facility] BUN (Blood Urea 35 (H) 8 - 24 [facility] Nitrogen), S MG/DL LABORATORIES [facility] Sodium, S 142 135 - 145 [facility] MMOL/L [facility] Potassium, S 4.7 3.6 - 5.2 [facility] MMOL/L [facility] Creatinine 1.2 0.8 - 1.3 [facility] MG/DL LABORATORIES - [facility] eGFR >60 >60 [facility] Non-Black/Afric ML/MIN/BS LABORATORIES - an Turkmen A [facility] Anion Gap 12 7 - 15 [facility] LABORATORIES - [facility] Glucose, S 152 (H) 70 - 140 [facility] MG/DL LABORATORIES - [facility] Specimen Anatomical Collection Method Collection Time Receive d Time (Source) Location / / Volume Laterality 11/25/2014 4:09 AM 5 4:09 CDT AM CDT Berkley Kaufman M.D. LAB BLOOD ADD-ON Performing Organization Address City/[facility]/ZIP Code Phon e Number [facility] LABORATORIES - [address] [place] [phone] [facility] (ABNORMAL) Phosphorus Inorganic (11/25/2014 4:09 AM CDT) [facility] Method Time Signature Phosphorus 1.8 (L) 2.5 - 4.5 [facility] (Inorganic), S MG/DL LABORATORIES - [facility] Specimen Anatomical Collection Method Collection Time Receive d Time (Source) Location / / Volume Laterality 11/25/2014 4:09 AM 5 4:09 CDT AM CDT Berkley Kaufman M.D. LAB BLOOD ADD-ON Performing Organization Address City/[facility] Phon e Number [facility] LABORATORIES - [address] [place] [phone] [facility] (ABNORMAL) Glucose, POCT (11/25/2014 1:39 AM CDT) [facility] Method Time Signature Glucose, 147 (H) 70 - 140 [facility] POCT, B MG/DL LABORATORIES - [facility] Sample Site, Capillary [facility] Blood Gas, LABORATORIES - POCT [facility] Last [facility]ake > 4 hours [facility] Specimen Anatomical Collection Method Collection Time Receive d Time (Source) Location / / Volume Laterality 11/25/2014 1:39 AM 5 1:39 CDT AM CDT Historical Provider LAB POCT ORDERABLES-MANUAL Performing Organization Address City/[facility] Phon e Number [facility] LABORATORIES - [address] [place] [phone] [facility] (ABNORMAL) Glucose, POCT (11/24/2014 7:34 PM CDT) [facility] Method Time Signature Glucose, POCT, 194 (H) 70 - 140 [facility] B MG/DL LABORATORIES - [facility] Sample Site, ARTLINE [facility] Blood Gas, LABORATORIES - POCT [facility] Specimen Anatomical Collection Method Collection Time Receive d Time (Source) Location / / Volume Laterality 11/24/2014 7:34 PM 5 7:34 CDT PM CDT Historical Provider LAB POCT ORDERABLES-MANUAL Performing Organization Address City/[facility]/ZIP Code Phon e Number [facility] LABORATORIES - [address] [place], [place] [address] [facility] (ABNORMAL) Glucose, POCT (11/24/2014 1:21 PM CDT) Patholo gist Method Time Signature Glucose, POCT, 199 (H) 70 - 140 [facility] B MG/DL LABORATORIES - [facility] Sample Site, ARTLINE [facility] Blood Gas, LABORATORIES - POCT [facility] Specimen Anatomical Collection Method Collection Time Receive d Time (Source) Location / / Volume Laterality 11/24/2014 1:21 PM 5 1:21 CDT PM CDT Historical Provider LAB POCT ORDERABLES-MANUAL Performing Organization Address City/[facility]/ZIP Code Phon e Number [facility] LABORATORIES - [address] [place] [phone] [facility] Phosphorus Inorganic (11/24/2014 6:50 AM CDT) Analysis Performed At Patho logist Time Signature Phosphorus 2.5 2.5 - 4.5 [facility] (Inorganic), S MG/DL LABORATORIES - [facility] Specimen Anatomical Collection Method Collection Time Receive d Time (Source) Location / / Volume Laterality 11/24/2014 6:50 AM 5 6:50 CDT AM CDT Eric Hess M.D. LAB BLOOD ADD-ON Performing Organization Address City/[facility]/ZIP Code Phon e Number [facility] LABORATORIES - [address] [place], [place] [address] [facility] Magnesium (11/24/2014 6:50 AM CDT) P athologist Signature Magnesium, S 2.0 1.7 - 2.3 [facility] MG/DL LABORATORIES - [facility] Specimen Anatomical Collection Method Collection Time Receive d Time (Source) Location / / Volume Laterality 11/24/2014 6:50 AM 5 6:50 CDT AM CDT Eric Hess M.D. LAB BLOOD ADD-ON Performing Organization Address City/State/ZIP Code Phon e Number [facility] LABORATORIES - [address] [place], [place] [address] [facility] PT (Prothrombin Time) with INR (11/24/2014 6:50 AM CDT) [facility] [employer] Method Time Signature Prothrombin 12.8 9.5 - 13.8 [facility] Time, P SEC [facility] INR 1.1 0.8 - 1.2 [facility] Specimen Anatomical Collection Method Collection Time Receive d Time (Source) Location / / Volume Laterality 11/24/2014 6:50 AM 5 6:50 CDT AM CDT Eric Hess M.D. LAB BLOOD ADD-ON Performing Organization Address City/[facility]/ZIP Code Phon e Number [facility] - [address] [place], [place] [address] [facility] (ABNORMAL) Blood Gas with Coox, Arterial (11/24/2014 6:50 AM CDT) [facility] [employer] Method Time Signature Device NCPAP [facility] Spont. 22 [facility] breaths/min [facility] pO2 117 (H) 80 - 100 [facility] MM HG [facility] pCO2 56 (H) 35 - 45 [facility] MM HG [facility] pH 7.34 (L) 7.35 - [facility] 7.45 PH [facility] Base Excess 4 (H) -2 - 2 [facility] MMOL/L [facility] O2Hb 95.7 94.0 - [facility] 98.0 % [facility] COHb 1.7 <3.0 % [facility] Arterial Art Line [facility] Sample Site [facility] FIO2 0.60 .21=AIR [facility] HCO3 30 (H) 22 - 26 [facility] MMOL/L [facility] Hb 14.6 13.5 - [facility] 17.5 G/DL [facility] MetHb 1.0 <1.6 % [facility] CtO2 19.8 (L) 21.0 - [facility] 23.0 [facility] Specimen Anatomical Collection Method Collection Time Receive d Time (Source) Location / / Volume Laterality 11/24/2014 6:50 AM 5 6:50 CDT AM CDT Eric Hess M.D. LAB BLOOD NON ADD-ON Performing Organization Address City/[facility]/ZIP Code Phon e Number [facility] LABORATORIES - [address] [place] [phone] [facility] (ABNORMAL) CBC without Differential (11/24/2014 6:50 AM CDT) [facility] Method Time Signature Leukocytes 11.4 (H) 3.5 - [facility] 10.5 LABORATORIES - X10(9)/L [facility] Hemoglobin 14.0 13.5 - [facility] 17.5 G/DL LABORATORIES - [facility] MCV 90.5 81.2 - [facility] 95.1 [place] LABORATORIES - [facility] RBC Distrib 16.1 (H) 11.8 - [facility] Width 15.6 % LABORATORIES - [facility] Platelet Count 146 (L) 150 - 450 [facility] X10(9)/L LABORATORIES - [facility] Hematocrit 44.6 38.8 - [facility] 50.0 % LABORATORIES - [facility] Erythrocytes 4.93 4.32 - [facility] 5.72 LABORATORIES - X10(12)/L [facility] Specimen Anatomical Collection Method Collection Time Receive d Time (Source) Location / / Volume Laterality 11/24/2014 6:50 AM 5 6:50 CDT AM CDT Eric Hess M.D. LAB BLOOD ADD-ON Performing Organization Address City/State/ZIP Code Phon e Number [facility] LABORATORIES - [address] [place] [phone] [facility] Calcium, Ionized (11/24/2014 6:50 AM CDT) athologist Signature Calcium, 5.07 4.65 - [facility] Ionized, B 5.30 MG/DL [facility] - [facility] Specimen Anatomical Collection Method Collection Time Receive d Time (Source) Location / / Volume Laterality 11/24/2014 6:50 AM 5 6:50 CDT AM CDT Eric Hess M.D. LAB BLOOD NON ADD-ON Performing Organization Address City/State/ZIP Code Phon e Number [facility] LABORATORIES - [address] [id number] [facility] (ABNORMAL) Electrolyte (Chem 4) Panel (11/24/2014 6:50 AM CDT) [facility] Method Time Signature Chloride, S 102 98 - 107 [facility] MMOL/L LABORATORIES - [facility] HX Bicarbonate, 27 22 - 29 [facility] P/S MMOL/L LABORATORIES - [facility] eGFR-Black/Afri >60 >60 [facility] can Turkmen ML/MIN/BS LABORATORIES - A [facility] BUN (Blood Urea 47 (H) 8 - 24 [facility] Nitrogen), S MG/DL LABORATORIES - [facility] Sodium, S 142 135 - 145 [facility] MMOL/L LABORATORIES - [facility] Potassium, S 4.8 3.6 - 5.2 [facility] MMOL/L LABORATORIES - [facility] Creatinine 1.4 (H) 0.8 - 1.3 [facility] MG/DL LABORATORIES - [facility] eGFR 52 (L) >60 [facility] Non-Black/Afric ML/MIN/BS LABORATORIES - an Turkmen A [facility] Anion Gap 13 7 - 15 [facility] LABORATORIES - [facility] Glucose, S 132 70 - 140 [facility] MG/DL LABORATORIES - [facility] Specimen Anatomical Collection Method Collection Time Receive d Time (Source) Location / / Volume Laterality 11/24/2014 6:50 AM 5 6:50 CDT AM CDT Eric Hess M.D. LAB BLOOD ADD-ON Performing Organization Address City/State/ZIP Code Phon e Number [facility] LABORATORIES - [address] [place] [address] [facility] Glucose, POCT (11/24/2014 6:49 AM CDT) P athologist Signature Glucose, POCT, 137 70 - 140 [facility] B MG/DL LABORATORIES - [facility] Sample Site, ARTL [facility] Blood Gas, LABORATORIES - POCT [facility] Specimen Anatomical Collection Method Collection Time Receive d Time (Source) Location / / Volume Laterality 11/24/2014 6:49 AM 5 6:49 CDT AM CDT Historical Provider LAB POCT ORDERABLES-MANUAL Performing Organization Address City/[facility]/ZIP [facility] Phon e Number [facility] LABORATORIES - [address] [place] [address] 05 [facility] (ABNORMAL) Blood Gas with Coox, Arterial (11/24/2014 2:50 AM CDT) Patholo gist Method Time Signature Arterial Art Line [facility] Sample Site LABORATORIES - [facility] O2 Flow 4.0 L/MIN [facility] LABORATORIES - [facility] pO2 53 (L) 80 - 100 [facility] MM HG LABORATORIES [facility] pCO2 51 (H) 35 - 45 [facility] MM HG LABORATORIES [facility] HCO3 28 (H) 22 - 26 [facility] MMOL/L LABORATORIES [facility] Hb 14.7 13.5 - [facility] 17.5 G/DL [facility] MetHb <1.0 <1.6 % [facility] LABORATORIES [facility] CtO2 17.5 (L) 21.0 - [facility] 23.0 VOL LABORATORIES - % [facility] Device NC [facility] LABORATORIES - [facility] Spont. 19 [facility] breaths/min LABORATORIES [facility] pH 7.36 7.35 - [facility] 7.45 PH [facility] Base Excess 3 (H) -2 - 2 [facility] MMOL/L [facility] O2Hb 84.6 (L) 94.0 - [facility] 98.0 % [facility] COHb 1.6 <3.0 % [facility] LABORATORIES [facility] Specimen Anatomical Collection Method Collection Time Receive d Time (Source) Location / / Volume Laterality 11/24/2014 2:50 AM 5 2:50 CDT AM CDT Kemal Heredia M.D. LAB BLOOD NON ADD-ON Performing Organization Address City/State/ZIP Code Phon e Number [facility] LABORATORIES - [address] [phone] [facility] Glucose, POCT (11/24/2014 2:49 AM CDT) Patholo gist Method Time Signature Glucose, POCT, 135 70 - 140 [facility] B MG/DL LABORATORIES [facility] Sample Site, ARTLINE [facility] Blood Gas, LABORATORIES - POCT [facility] Specimen Anatomical Collection Method Collection Time Receive d Time (Source) Location / / Volume Laterality 11/24/2014 2:49 AM 5 2:49 CDT AM CDT Historical Provider LAB POCT ORDERABLES-MANUAL Performing Organization Address City/[facility] Phon e Number [facility] LABORATORIES - [address] [place] [address] 05 [facility] Glucose, POCT (11/23/2014 7:05 PM CDT) P athologist Signature Glucose, POCT, 133 70 - 140 [facility] B MG/DL LABORATORIES [facility] Specimen Anatomical Collection Method Collection Time Receive d Time (Source) Location / / Volume Laterality 11/23/2014 7:05 PM 5 7:05 CDT PM CDT Historical Provider LAB POCT ORDERABLES-MANUAL Performing Organization Address City/[facility]/ZIP Code Phon e Number [facility] LABORATORIES - [address] [place] [address] [facility] (ABNORMAL) Blood Gas without Coox, Arterial (11/23/2014 3:35 PM CDT) Patholo gist Method Time Signature Device [place] [facility] Spont. 16 [facility] breaths/min [facility] pO2 74 (L) 80 - 100 [facility] MM HG [facility] pCO2 48 (H) 35 - 45 [facility] MM HG [facility] HCO3 27 (H) 22 - 26 [facility] MMOL/L [facility] Arterial Art Line [facility] Sample Site [facility] O2 Flow 4.0 L/MIN [facility] pH 7.37 7.35 - [facility] 7.45 PH [facility] Base Excess 2 -2 - 2 [facility] MMOL/L [facility] Specimen Anatomical Collection Method Collection Time Receive d Time (Source) Location / / Volume Laterality 11/23/2014 3:35 PM 5 3:35 CDT PM CDT Danni Bran APRN C.N.P., M.S., R.N. LAB BLOO D NON ADD-ON Performing Organization Address City/[facility]/ZIP Code Phon e Number [facility] LABORATORIES - [address] [phone] [facility] (ABNORMAL) Cardiac Biomarker Panel (11/23/2014 3:35 PM CDT) Analysis Performed At Patho logist Time Signature Delta Interp Not Sig [facility] Comment: No significant delta observed. Troponin Delta 0.00 NG/ML [facility] Troponin Delta -0.01 NG/ML [facility] Troponin T, S 0.04 (H) <0.01 NG/ML [facility] Troponin T 3H, S 0.04 (H) <0.01 NG/ML [facility] Troponin T 6H, S 0.03 (H) <0.01 NG/ML [facility] LABORATORIES [facility] Delta Interp Not Sig [facility] LABOR ATORIES - [facility] Comment: No significant delta observed. Specimen Anatomical Collection Method Collection Time Receive d Time (Source) Location / / Volume Laterality 11/23/2014 3:35 PM 5 3:35 CDT PM CDT Danni Brna APRN, C.N.P., M.S., R.N. LAB BLOO D ADD-ON Performing Organization Address City/[facility]/ZIP Code Phon e Number [facility] LABORATORIES - [address] [place], [place] [address] [facility] (ABNORMAL) Electrolyte (Chem 4) Panel (11/23/2014 3:35 PM CDT) [facility] Method Time Signature Chloride, S 100 98 - 107 [facility] MMOL/L LABORATORIES [facility] HX Bicarbonate, 25 22 - 29 [facility] P/S MMOL/L LABORATORIES [facility] eGFR-Black/Afri 40 (L) >60 [facility] can Turkmen ML/MIN/BS LABORATORIES - A [facility] BUN (Blood Urea 54 (H) 8 - 24 [facility] Nitrogen), S MG/DL [facility] Sodium, S 141 135 - 145 [facility] MMOL/L [facility] Potassium, S 4.7 3.6 - 5.2 [facility] MMOL/L [facility] Creatinine 2.1 (H) 0.8 - 1.3 [facility] MG/DL [facility] eGFR 33 (L) >60 [facility] Non-Black/Afric ML/MIN/BS LABORATORIES - an Turkmen A [facility] Anion Gap 16 (H) 7 - 15 [facility] LABORATORIES [facility] Glucose, S 123 70 - 140 [facility] MG/DL LABORATORIES - [facility] Specimen Anatomical Collection Method Collection Time Receive d Time (Source) Location / / Volume Laterality 11/23/2014 3:35 PM 5 3:35 CDT PM CDT Danni Bran APRN, C.N.P., M.S., R.N. LAB BLOO D ADD-ON Performing Organization Address City/[facility]/ZIP Code Phon e Number [facility] LABORATORIES - [address] [facility], [place] [address] [facility] Glucose, POCT (11/23/2014 3:30 PM CDT) [facility] Method Time Signature Glucose, POCT, 120 70 - 140 [facility] B MG/DL LABORATORIES - [facility] Sample Site, [facility] Blood Gas, LABORATORIES - POCT [facility] Specimen Anatomical Collection Method Collection Time Receive d Time (Source) Location / / Volume Laterality 11/23/2014 3:30 PM 5 3:30 CDT PM CDT Historical Provider LAB POCT ORDERABLES-MANUAL Performing Organization Address City/[facility]/ZIP Code Phon e Number [facility] LABORATORIES - [address] [place], [place] [address] [facility] ECG 12 Lead (11/23/2014 2:47 PM CDT) Specimen (Source) Anatomical Collection Method Collection Time Re ceived Time Location / / Volume Laterality 11/23/2014 2:47 PM CDT [facility] RADIOLOGY SYSTEM - 11/24/2014 11:10 AM CDT 23Nov2014 14:47 VENTRICULAR RATE 62 Atrial flutter with variable A-V block Right bundle branch block When compared with ECG of 22-NOV-2014 19 :48, No significant change was [place] [id number]^ANA LUISA ?^[facility] Procedure Note Kaiser Skaggs Jr., M.D. - 11/27/2017For matting of this note might be different from the original. 23Nov2014 14:47 VENTRICULAR RATE 62 Atrial flutter with variable A-V block Right bundle branch block When compared with ECG of 22-NOV-2014 19 :48, No significant change was found [id number]^ANA LUISA PALOMO MD^[facility] Kemal Heredia M.D. ECG ORDERABLES Performing Organization Address City/State/ZIP Code Phon e Number HX [facility] RADIOLOGY SYSTEM [address] [place] [address], U SA Glucose, POCT (11/23/2014 7:46 AM CDT) [facility] Method Time Signature Glucose, POCT, 97 70 - 140 [facility] B MG/DL LABORATORIES - [facility] Sample Site, [facility] Blood Gas, LABORATORIES - POCT [facility] Specimen Anatomical Collection Method Collection Time Receive d Time (Source) Location / / Volume Laterality 11/23/2014 7:46 AM 5 7:46 CDT AM CDT Historical Provider LAB POCT ORDERABLES-MANUAL Performing Organization Address City/State/ZIP Code Phon e Number [facility] LABORATORIES - [address] [place], [place] [address] [facility] DX Chest Portable 1 View (11/23/2014 6:16 [...] athologist Signature Hemoglobin 14.1 13.5 - 17.5 [facility] G/DL [facility] Comment: Drawn From Arterial Line Hematocrit 45.5 38.8 - 50.0 % [facility] Comment: Drawn From Arterial Line RBC Distrib Width 16.4 (H) 11.8 - 15.6 % [facility] Comment: Drawn From Arterial Line Platelet Count 150 150 - 450 X10(9)/L [facility] Comment: Drawn From Arterial Line Leukocytes 15.1 (H) 3.5 - 10.5 X10(9)/L [facility] IC [facility] Comment: Drawn From Arterial Line Erythrocytes 4.89 4.32 - 5.72 X10(12)/L [facility] Comment: Drawn From Arterial Line MCV 93.0 81.2 - 95.1 FL [facility] Comment: Drawn From Arterial Line Specimen Anatomical Collection Method Collection Time Receive d Time (Source) Location / / Volume Laterality 11/23/2014 3:47 AM 5 3:47 CDT AM CDT Narrative [facility] - 11/23/2014 4:13 AM CDT Drawn From Arterial Line Kemal Heredia M.D. LAB BLOOD ADD-ON Performing Organization Address City/State/ZIP Code Phon e Number [facility] - [address] [place] [address] [facility] (ABNORMAL) Blood Gas without Coox, Arterial (11/23/2014 3:47 AM CDT) [facility] Method Time Signature Arterial Art Line [facility] Sample Site [facility] Comment: Drawn From Arterial Line FIO2 0.35 .21=AIR [facility] Comment: Drawn From Arterial Line pO2 129 (H) 80 - 100 MM HG [facility] Comment: Drawn From Arterial Line pCO2 59 (H) 35 - 45 MM [facility] Comment: Drawn From Arterial Line pH 7.30 (L) 7.35 - 7.45 PH [facility] Comment: Drawn From Arterial Line Base Excess 2 -2 - 2 MMOL/L [facility] Comment: Drawn From Arterial Line Device BPAP [facility] Comment: Drawn From Arterial Line Spont. breaths/min 12 [facility] Comment: Drawn From Arterial Line HCO3 28 (H) 22 - 26 MMOL/L [facility] Comment: Drawn From Arterial Line Specimen Anatomical Collection Method Collection Time Receive d Time (Source) Location / / Volume Laterality 11/23/2014 3:47 AM 5 3:47 CDT AM CDT Narrative [facility] - 11/23/2014 4:04 AM CDT Drawn From Arterial Line Kemal Heredia M.D. LAB BLOOD NON ADD-ON Performing Organization Address City/State/ZIP Code Phon e Number [facility] - [address] [place], [place] [address] [facility] (ABNORMAL) Electrolyte (Chem 4) Panel (11/23/2014 3:47 AM CDT) P athologist Signature Sodium, S 140 135 - 145 [facility] MMOL/L [facility] Comment: Drawn From Arterial Line Potassium, S 4.9 3.6 - 5.2 MMOL/L [facility] Comment: Drawn From Arterial Line Creatinine 2.6 (H) 0.8 - 1.3 MG/DL [facility] Comment: Drawn From Arterial Line eGFR Non-Black/ 26 (L) >60 ML/MIN/BSA [facility] S Comment: Drawn From Arterial Line eGFR-Black/ 31 (L) >60 ML/MIN/BSA [facility] S Comment: Drawn From Arterial Line BUN (Blood Urea Nitrogen), S 58 (H) 8 - 24 MG/DL [facility] S Comment: Drawn From Arterial Line Chloride, S 99 98 - 107 MMOL/L [facility] Comment: Drawn From Arterial Line HX Bicarbonate, P/S 26 22 - 29 MMOL/L M [facility] Comment: Drawn From Arterial Line Anion Gap 15 7 - 15 [facility] LABORATO PAPI [facility] Comment: Drawn From Arterial Line Glucose, S 84 70 - 140 MG/DL [facility] Comment: Drawn From Arterial Line Specimen Anatomical Collection Method Collection Time Receive d Time (Source) Location / / Volume Laterality 11/23/2014 3:47 AM 5 3:47 CDT AM CDT Narrative [facility] - 11/23/2014 4:48 AM CDT Drawn From Arterial Line Kemal Heredia M.D. LAB BLOOD ADD-ON Performing Organization Address City/State/ZIP Code Phon e Number [facility] - [address] [phone] [facility] (ABNORMAL) Phosphorus Inorganic (11/23/2014 3:47 AM CDT) Patholo gist Method Time Signature Phosphorus 5.3 (H) 2.5 - 4.5 [facility] (Inorganic), S MG/DL [facility] Comment: Drawn From Arterial Line Specimen Anatomical Collection Method Collection Time Receive d Time (Source) Location / / Volume Laterality 11/23/2014 3:47 AM 5 3:47 CDT AM CDT Narrative [facility] - 11/23/2014 4:48 AM CDT Drawn From Arterial Line Kemal Heredia M.D. LAB BLOOD ADD-ON Performing Organization Address City/[facility]/ZIP Code Phon e Number [facility] - [address] [phone] [facility] Magnesium (11/23/2014 3:47 AM CDT) P athologist Signature Magnesium, S 2.0 1.7 - 2.3 [facility] MG/DL [facility] Comment: Drawn From Arterial Line Specimen Anatomical Collection Method Collection Time Receive d Time (Source) Location / / Volume Laterality 11/23/2014 3:47 AM 5 3:47 CDT AM CDT Narrative [facility] - 11/23/2014 4:48 AM CDT Drawn From Arterial Line Kemal Heredia M.D. LAB BLOOD ADD-ON Performing Organization Address City/State/ZIP Code Phon e Number [facility] - [address] [place] [phone] [facility] Potassium, Blood (11/23/2014 3:47 AM CDT) P athologist Signature Potassium, B 4.5 3.6 - 5.2 [facility] MMOL/L [facility] Comment: Drawn From Arterial Line Specimen Anatomical Collection Method Collection Time Receive d Time (Source) Location / / Volume Laterality 11/23/2014 3:47 AM 5 3:47 CDT AM CDT Narrative [facility] - 11/23/2014 4:04 AM CDT Drawn From Arterial Line Kemal Heredia M.D. LAB BLOOD NON ADD-ON Performing Organization Address City/[facility]/ZIP Code Phon e Number [facility] LABORATORIES - [address] [place] [phone] [facility] Glucose, POCT (11/23/2014 1:57 AM CDT) [facility] Method Time Signature Glucose, POCT, 97 70 - 140 [facility] B MG/DL LABORATORIES - [facility] Sample Site, ARTLINE [facility] Blood Gas, LABORATORIES - POCT [facility] Specimen Anatomical Collection Method Collection Time Receive d Time (Source) Location / / Volume Laterality 11/23/2014 1:57 AM 5 1:57 CDT AM CDT Historical Provider LAB POCT ORDERABLES-MANUAL Performing Organization Address City/[facility] Phon e Number [facility] LABORATORIES - [address] [place] [phone] [facility] (ABNORMAL) Microscopic Manual (11/23/2014 1:41 AM CDT) [facility] Method Archie Signature Microscopy Abnormal [facility] LABORATORIES [facility] Blood <3 <3 /HPF [facility] WBC 4-10 (A) 1-3 [facility] (Males); LABORATORIES - 1-10 [facility] (Females[facility] CAMPUS /HPF Casts, Hyaline 4-10 /LPF [facility] LABORATORIES [facility] Squamous 1-3 /HPF [facility] Epithelial LABORATORIES - [facility] Specimen Anatomical Collection Method Collection Time Receive d Time (Source) Location / / Volume Laterality 11/23/2014 1:41 AM 5 1:41 CDT AM CDT Berkley Kaufman M.D. LAB URINE ORDERABLES Performing Organization Address City/[facility]/ZIP [facility] Phon e Number [facility] LABORATORIES - [address] [address] [facility] Sodium, Random, Urine (11/23/2014 1:41 AM CDT) [facility] Method Archie Signature Sodium, 28 Interpret [facility] Random, U with other; LABORATORIES - clinical [facility]. MMOL/L CAMPUS Specimen Anatomical Collection Method Collection Time Receive d Time (Source) Location / / Volume Laterality 11/23/2014 1:41 AM 5 1:41 CDT AM CDT Berkley Kaufman M.D. LAB URINE ORDERABLES Performing Organization Address City/State/ZIP Code Phon e Number [facility] LABORATORIES - [address] [place], [place] [address] [facility] (ABNORMAL) Urinalysis with Microscopic (11/23/2014 1:41 AM CDT) athologist Signature Source . [facility] Comment: Munoz Catheter Appearance Normal Normal [facility] Glucose 4 0 - 15 MG/DL [facility] ATORIES [facility] Protein, U 29 (H) <22 MG/DL [facility] Comment: ? ADDITIONAL INFORMATIO N ? On 03/20/2014 the total protein assay me thod changed resulting ? in approximately a 20% increase in prote in values. ? Osmolality, 24 HR, U 450 150 - 1150 MOSM/KG [facility] S pH, 24 HR, U 4.5 4.5 - 8.0 [facility] LABOR ATORIES [facility] S Protein/Osmolality 0.64 (H) <0.27 RATIO [facility] S Comment: ? ADDITIONAL INFORMATIO N ? On 03/20/2014 the total protein assay me thod changed resulting ? in approximately a 20% increase in prote in values. ? Predicted 24 Hr Protein 620 MG/24 H [facility] Predicted Range 197-1952 MG/24 H [facility] Hemoglobin, QL Negative Negative [facility] Specimen Anatomical Collection Method Collection Time Receive d Time (Source) Location / / Volume Laterality 11/23/2014 1:41 AM 5 1:41 CDT AM CDT Berkley Kaufman M.D. LAB URINE ORDERABLES Performing Organization Address City/[facility]/ZIP Code Phon e Number [facility] LABORATORIES - [address] [phone] [facility] Creatinine, Random, Urine (11/23/2014 1:41 AM CDT) [employer] Method Time Signature Creatinine, 169 Used to [facility] Random, U normalize LABORATORIES - other; [facility] values. MG/DL CAMPUS Specimen Anatomical Collection Method Collection Time Receive d Time (Source) Location / / Volume Laterality 11/23/2014 1:41 AM 5 1:41 CDT AM CDT Berkley Kaufman M.D. LAB URINE ORDERABLES Performing Organization Address City/[facility] Phon e Number [facility] LABORATORIES - [address] [phone] [facility] (ABNORMAL) Blood Gas without Coox, Arterial (11/23/2014 12:42 AM CDT) [employer] Method Time Signature Arterial Art Line [facility] Sample Site [facility] Comment: Drawn From Arterial Line FIO2 0.35 .21=AIR [facility] Comment: Drawn From Arterial Line Device BPAP [facility] Comment: Drawn From Arterial Line Spont. breaths/min 16 [facility] Comment: Drawn From Arterial Line pO2 113 (H) 80 - 100 MM HG [facility] Comment: Drawn From Arterial Line pCO2 62 (H) 35 - 45 MM HG [facility] Comment: Drawn From Arterial Line pH 7.28 (L) 7.35 - 7.45 PH [facility] Comment: Drawn From Arterial Line Base Excess 2 -2 - 2 MMOL/L [facility] Comment: Drawn From Arterial Line HCO3 28 (H) 22 - 26 MMOL/L [facility] Comment: Drawn From Arterial Line Specimen Anatomical Collection Method Collection Time Receive d Time (Source) Location / / Volume Laterality 11/23/2014 12:42 11/23/2014 AM CDT 12:42 AM CDT Narrative [facility] - 11/23/2014 12:54 AM CDT Drawn From Arterial Line Ernestina Tao M.D. LAB BLOOD NON ADD-ON Performing Organization Address City/State/ZIP Code Phon e Number [facility] - [address] [phone] [facility] (ABNORMAL) BMP (Basic Metabolic Panel) (11/23/2014 12:42 AM CDT) P athologist Signature Sodium, P 140 135 - 145 [facility] MMOL/L [facility] Comment: Drawn From Arterial Line Potassium, P 4.9 3.6 - 5.2 MMOL/L [facility] Comment: Drawn From Arterial Line eGFR Non-Black/ 24 (L) >60 ML/MIN/BSA [facility] Comment: Drawn From Arterial Line eGFR-Black/ 29 (L) >60 ML/MIN/BSA [facility] Comment: Drawn From Arterial Line BUN (Blood Urea Nitrogen), S 59 (H) 8 - 24 MG/DL [facility] Comment: Drawn From Arterial Line HX Bicarbonate, P/S 28 22 - 29 MMOL/L [facility] Comment: Drawn From Arterial Line Glucose, S 88 70 - 140 MG/DL [facility] Comment: Drawn From Arterial Line Anion Gap 13 7 - 15 [facility]O [facility] Comment: Drawn From Arterial Line Chloride, S 99 98 - 107 MMOL/L [facility] LABORATORIES - [facility] Comment: Drawn From Arterial Line Creatinine 2.8 (H) 0.8 - 1.3 MG/DL [facility] L ABORATORIES - [facility] Comment: Drawn From Arterial Line Specimen Anatomical Collection Method Collection Time Receive d Time (Source) Location / / Volume Laterality 11/23/2014 12:42 11/23/2014 AM CDT 12:42 AM CDT Narrative [facility] - 11/23/2014 1:24 AM CDT Drawn From Arterial Line Ernestina Tao M.D. LAB BLOOD ADD-ON Performing Organization Address City/[facility]/ZIP [facility] Phon e Number [facility] LABORATORIES - [address] [phone] [facility] Glucose, POCT (11/22/2014 10:17 PM CDT) [facility] Method Time Signature Glucose, POCT, 86 70 - 140 [facility] B MG/DL LABORATORIES [facility] Sample Site, ARTLINE [facility] Blood Gas, LABORATORIES - POCT [facility] Specimen Anatomical Collection Method Collection Time Receive d Time (Source) Location / / Volume Laterality 11/22/2014 10:17 11/22/2014 PM CDT 10:17 PM CDT Historical Provider LAB POCT ORDERABLES-MANUAL Performing Organization Address City/State/ZIP Code Phon e Number [facility] LABORATORIES - [address] [phone] [facility] (ABNORMAL) Blood Gas with Coox, Arterial (11/22/2014 9:53 PM CDT) [facility] Method Time Signature Arterial Art Line [facility] Sample Site [facility] FIO2 0.35 .21=AIR [facility] pCO2 59 (H) 35 - 45 [facility] MM HG [facility] pH 7.29 (L) 7.35 - [facility] 7.45 PH [facility] Base Excess 1 -2 - 2 [facility] MMOL/L [facility] HCO3 27 (H) 22 - 26 [facility] MMOL/L [facility] Hb 13.7 13.5 - [facility] 17.5 G/DL [facility] O2Hb 95.7 94.0 - [facility] 98.0 % [facility] COHb 1.0 <3.0 % [facility] MetHb <1.0 <1.6 % [facility] LABORATORIES - [facility] Device BPAP [facility] pO2 102 (H) 80 - 100 [facility] MM HG [facility] CtO2 18.6 (L) 21.0 - [facility] 23.0 VOL LABORATORIES - % [facility] Specimen Anatomical Collection Method Collection Time Receive d Time (Source) Location / / Volume Laterality 11/22/2014 9:53 PM 5 9:53 CDT PM CDT Ernestina Tao M.D. LAB BLOOD NON ADD-ON Performing Organization Address City/[facility]/ZIP Code Phon e Number [facility] LABORATORIES - [address] Potassium (11/22/2014 9:53 PM CDT) P athologist Signature Potassium, S 5.0 3.6 - 5.2 [facility] MMOL/L [facility] Specimen Anatomical Collection Method Collection Time Receive d Time (Source) Location / / Volume Laterality 11/22/2014 9:53 PM 5 9:53 CDT PM CDT Ernestina Tao M.D. LAB BLOOD ADD-ON Performing Organization Address City/[facility]/ZIP Code Phon e Number [facility] LABORATORIES - [address] [address] [facility] Glucose, POCT (11/22/2014 9:48 PM CDT) P athologist Signature Glucose, POCT, 91 70 - 140 [facility] B MG/DL LABORATORIES - [facility] Sample Site, ARTL [facility] Blood Gas, LABORATORIES - POCT [facility] Specimen Anatomical Collection Method Collection Time Receive d Time (Source) Location / / Volume Laterality 11/22/2014 9:48 PM 5 9:48 CDT PM CDT Historical Provider LAB POCT ORDERABLES-MANUAL Performing Organization Address City/[facility]/ZIP [facility] Phon e Number [facility] LABORATORIES - [address] [phone] [facility] (ABNORMAL) Cardiac Biomarker Panel (11/22/2014 9:24 PM CDT) Patholo gist Method Time Signature Troponin T, S 0.03 (H) <0.01 [facility] NG/ML [facility] Troponin T 3H, 0.04 (H) <0.01 [facility] S NG/ML [facility] Troponin Delta 0.01 NG/ML [facility] Delta Interp Not Sig [facility] Comment: No significant delta observed. Troponin Delta 0.01 NG/ML [facility] Troponin T 6H, S 0.04 (H) <0.01 NG/ML [facility] INIC [facility] Delta Interp Not Sig [facility] Comment: No significant delta observed. Specimen Anatomical Collection Method Collection Time Receive d Time (Source) Location / / Volume Laterality 11/22/2014 9:24 PM 5 9:24 CDT PM CDT Kemal Heredia M.D. LAB BLOOD ADD-ON Performing Organization Address City/[facility]/ZIP [facility] Phon e Number [facility] LABORATORIES - [address] [phone] [facility] Glucose, POCT (11/22/2014 9:20 PM CDT) P athologist Signature Glucose, POCT, 96 70 - 140 [facility] B MG/DL [facility] Sample Site, ARTL [facility] Blood Gas, LABORATORIES - POCT [facility] Specimen Anatomical Collection Method Collection Time Receive d Time (Source) Location / / Volume Laterality 11/22/2014 9:20 PM 5 9:20 CDT PM CDT Historical Provider LAB POCT ORDERABLES-MANUAL Performing Organization Address City/State/[facility] Phon e Number [facility] LABORATORIES - [address] [address] [facility] (ABNORMAL) Glucose, POCT (11/22/2014 8:43 PM CDT) Patholo gist Method Time Signature Glucose, POCT, 154 (H) 70 - 140 [facility] B MG/DL [facility] Sample Site, ARTLINE [facility] Blood Gas, LABORATORIES - POCT [facility] Specimen Anatomical Collection Method Collection Time Receive d Time (Source) Location / / Volume Laterality 11/22/2014 8:43 PM 5 8:43 CDT PM CDT Historical Provider LAB POCT ORDERABLES-MANUAL Performing Organization Address City/[facility]/ZIP Code Phon e Number [facility] LABORATORIES - [address] [address] [facility] Glucose, POCT (11/22/2014 8:15 PM CDT) [facility] Method Time Signature Glucose, POCT, 111 70 - 140 [facility] B MG/DL LABORATORIES - [facility] Sample Site, Venstick [facility] Blood Gas, LABORATORIES - POCT [facility] Specimen Anatomical Collection Method Collection Time Receive d Time (Source) Location / / Volume Laterality 11/22/2014 8:15 PM 5 8:15 CDT PM CDT Historical Provider LAB POCT ORDERABLES-MANUAL Performing Organization Address [facility] Phon e Number [facility] LABORATORIES - [address] [phone] [facility] ECG 12 Lead (11/22/2014 7:48 PM CDT) Specimen (Source) Anatomical Collection Method Collection Time Re ceived Time Location / / Volume Laterality 11/22/2014 7:48 PM CDT [facility] RADIOLOGY SYSTEM - 11/22/2014 8:09 PM CDT 22Nov2014 19:48 VENTRICULAR RATE 58 Atrial flutter with variable A-V block Right bundle branch block When compared with ECG of 22-NOV-2014 12 :14, QRS axis has changed [id number]^CARL ??^GLORIA Graham Procedure Note Gloria May M.D., M.B. - 11/27/2017F ormatting of this note might be different from the original. 22Nov2014 19:48 VENTRICULAR RATE 58 Atrial flutter with variable A-V block Right bundle branch block When compared with ECG of 22-NOV-2014 12 :14, QRS axis has changed [id number]^CARL MENDEZ^GLORIA Graham Emelia Gay, P.A.-C., M.S. ECG ORDERABLES Performing Organization Address City/[facility]/ZIP Code Phon e Number HX [facility] RADIOLOGY SYSTEM [address] [place] [address], U SA (ABNORMAL) Blood Gas with Coox, Arterial (11/22/2014 6:57 PM CDT) [facility] Method Time Signature Device BPAP [facility] Spont. 14 [facility] breaths/min [facility] pH 7.28 (L) 7.35 - [facility] 7.45 PH [facility] Base Excess 1 -2 - 2 [facility] MMOL/L [facility] O2Hb 94.2 94.0 - [facility] 98.0 % [facility] COHb 1.5 <3.0 % [facility] Arterial Art Line [facility] Sample Site [facility] FIO2 0.35 .21=AIR [facility] pO2 88 80 - 100 [facility] MM HG [facility] pCO2 61 (H) 35 - 45 [facility] MM HG [facility] HCO3 27 (H) 22 - 26 [facility] MMOL/L [facility] Hb 14.8 13.5 - [facility] 17.5 G/DL [facility] MetHb <1.0 <1.6 % [facility] CtO2 19.6 (L) 21.0 - [facility] 23.0 VOL LABORATORIES - % [facility] Specimen Anatomical Collection Method Collection Time Receive d Time (Source) Location / / Volume Laterality 11/22/2014 6:57 PM 5 6:57 CDT PM CDT Nathalie Cosby R.N. LAB BLOOD NON ADD-ON Performing Organization Address City/State/ZIP Code Phon e Number [facility] LABORATORIES - [address] [place], [place] [address] [facility] (ABNORMAL) Blood Gas with Coox, Arterial (11/22/2014 4:31 PM CDT) [facility] gist Method Time Signature Arterial Art Line [facility] Sample Site [facility] FIO2 0.35 .21=AIR [facility] pO2 82 80 - 100 [facility] MM HG [facility] pCO2 69 (H) 35 - 45 [facility] MM HG [facility] pH 7.23 (L) 7.35 - [facility] 7.45 PH [facility] Base Excess 1 -2 - 2 [facility] MMOL/L [facility] HCO3 28 (H) 22 - 26 [facility] MMOL/L [facility] Hb 14.5 13.5 - [facility] 17.5 G/DL [facility] O2Hb 93.2 (L) 94.0 - [facility] 98.0 % LABORATORIES - [facility] COHb 1.0 <3.0 % [facility] LABORATORIES [facility] Device BPAP [facility] - [facility] Spont. 14 [facility] breaths/min [facility] - [facility] MetHb <1.0 <1.6 % [facility] CtO2 19.0 (L) 21.0 - [facility] 23.0 VOL LABORATORIES - % [facility] Specimen Anatomical Collection Method Collection Time Receive d Time (Source) Location / / Volume Laterality 11/22/2014 4:31 PM 5 4:31 CDT PM CDT Radha Peña APRN, C.N.P. LAB BLOOD NON ADD-ON Performing Organization Address City/[facility]/ZIP Code Phon e Number [facility] LABORATORIES - [address] [place] [address] [facility] Magnesium (11/22/2014 4:31 PM CDT) P athologist Signature Magnesium, S 1.8 1.7 - 2.3 [facility] MG/DL [facility] Specimen Anatomical Collection Method Collection Time Receive d Time (Source) Location / / Volume Laterality 11/22/2014 4:31 PM 5 4:31 CDT PM CDT Radha Peña APRN, C.N.P. LAB BLOOD ADD-ON Performing Organization Address City/State/[facility] Code Phon e Number [facility] LABORATORIES - [address] [address] [facility] (ABNORMAL) CBC without Differential (11/22/2014 4:31 PM CDT) Patholo gist Method Time Signature Erythrocytes 4.85 4.32 - [facility] 5.72 LABORATORIES - X10(12)/L [facility] MCV 94.2 81.2 - [facility] 95.1 FL [facility] Hemoglobin 14.2 13.5 - [facility] 17.5 G/DL [facility] - [facility] Hematocrit 45.7 38.8 - [facility] 50.0 % [facility] RBC Distrib 16.5 (H) 11.8 - [facility] Width 15.6 % [facility] Platelet Count 166 150 - 450 [facility] X10(9)/L LABORATORIES - [facility] Leukocytes 15.5 (H) 3.5 - [facility] 10.5 LABORATORIES - X10(9)/L [facility] Specimen Anatomical Collection Method Collection Time Receive d Time (Source) Location / / Volume Laterality 11/22/2014 4:31 PM 5 4:31 CDT PM CDT Radha Peña APRN, C.N.P. LAB BLOOD ADD-ON Performing Organization Address City/[facility] Code Phon e Number [facility] LABORATORIES - [address] [place] [address] [facility] (ABNORMAL) Electrolyte (Chem 4) Panel (11/22/2014 4:31 PM CDT) [facility] Method Time Signature Chloride, S 96 (L) 98 - 107 [facility] MMOL/L LABORATORIES - [facility] HX Bicarbonate, 26 22 - 29 [facility] P/S MMOL/L LABORATORIES - [facility] eGFR-Black/Afri 30 (L) >60 [facility] can Turkmen ML/MIN/BS LABORATORIES - A [facility] BUN (Blood Urea 52 (H) 8 - 24 [facility] Nitrogen), S MG/DL LABORATORIES - [facility] Sodium, S 136 135 - 145 [facility] MMOL/L LABORATORIES - [facility] Potassium, S 5.8 (H) 3.6 - 5.2 [facility] MMOL/L LABORATORIES - [facility] Creatinine 2.7 (H) 0.8 - 1.3 [facility] MG/DL LABORATORIES - [facility] eGFR 25 (L) >60 [facility] Non-Black/Afric ML/MIN/BS LABORATORIES - an Turkmen A [facility] Anion Gap 14 7 - 15 [facility] LABORATORIES - [facility] Glucose, S 145 (H) 70 - 140 [facility] MG/DL LABORATORIES - [facility] Specimen Anatomical Collection Method Collection Time Receive d Time (Source) Location / / Volume Laterality 11/22/2014 4:31 PM 5 4:31 CDT PM CDT Radha Peña APRN, C.N.P. LAB BLOOD ADD-ON Performing Organization Address City/State/ZIP Code Phon e Number [facility] LABORATORIES - [address] [place], [place] [address] [facility] Lactate (11/22/2014 4:31 PM CDT) athologist Signature Lactate, P 0.9 0.6 - 2.3 [facility] MMOL/L LABORATORIES - [facility] Specimen Anatomical Collection Method Collection Time Receive d Time (Source) Location / / Volume Laterality 11/22/2014 4:31 PM 5 4:31 CDT PM CDT Radha Peña APRN, C.N.P. LAB BLOOD NON ADD-ON Performing Organization Address City/[facility]/ZIP Code Phon e Number [facility] LABORATORIES - [address] [place] [phone] [facility] (ABNORMAL) Phosphorus Inorganic (11/22/2014 4:31 PM CDT) [facility] Method Time Signature Phosphorus 7.0 (H) 2.5 - 4.5 [facility] (Inorganic), S MG/DL LABORATORIES - [facility] Specimen Anatomical Collection Method Collection Time Receive d Time (Source) Location / / Volume Laterality 11/22/2014 4:31 PM 5 4:31 CDT PM CDT Radha Peña APRN, C.N.P. LAB BLOOD ADD-ON Performing Organization Address City/[facility]/ZIP Code Phon e Number [facility] LABORATORIES - [address] [place] [phone] [facility] Calcium, Ionized (11/22/2014 4:31 PM CDT) athologist Signature Calcium, 4.70 4.65 - [facility] Ionized, B 5.30 MG/DL LABORATORIES - [facility] Specimen Anatomical Collection Method Collection Time Receive d Time (Source) Location / / Volume Laterality 11/22/2014 4:31 PM 5 4:31 CDT PM CDT Radha Peña APRN, C.N.P. LAB BLOOD NON ADD-ON Performing Organization Address City/[facility]/ZIP Code Phon e Number [facility] LABORATORIES - [address] [place] [phone] [facility] Glucose, POCT (11/22/2014 4:21 PM CDT) [facility] gist Method Time Signature Glucose, POCT, 133 70 - 140 [facility] B MG/DL LABORATORIES - [facility] Sample Site, ARTLINE [facility] Blood Gas, LABORATORIES - POCT [facility] Specimen Anatomical Collection Method Collection Time Receive d Time (Source) Location / / Volume Laterality 11/22/2014 4:21 PM 5 4:21 CDT PM CDT Historical Provider LAB POCT ORDERABLES-MANUAL Performing Organization Address City/[facility]/ZIP Code Phon e Number [facility] LABORATORIES - [address] [place], [place] [address] [facility] (ABNORMAL) Glucose, POCT (11/22/2014 3:32 PM CDT) [facility] gist Method Time Signature Glucose, POCT, 147 (H) 70 - 140 [facility] B MG/DL LABORATORIES - [facility] Sample Site, [facility] Blood Gas, LABORATORIES - POCT [facility] Specimen Anatomical Collection Method Collection Time Receive d Time (Source) Location / / Volume Laterality 11/22/2014 3:32 PM 5 3:32 CDT PM CDT Historical Provider LAB POCT ORDERABLES-MANUAL Performing Organization Address City/[facility]/ZIP Code Phon e Number [facility] LABORATORIES - [address], [place] [address] [facility] (ABNORMAL) Glucose, POCT (11/22/2014 3:06 PM CDT) [facility] Method Time Signature Glucose, POCT, 164 (H) 70 - 140 [facility] B MG/DL LABORATORIES - [facility] Sample Site, [facility] Blood Gas, LABORATORIES - POCT [facility] Specimen Anatomical Collection Method Collection Time Receive d Time (Source) Location / / Volume Laterality 11/22/2014 3:06 PM 5 3:06 CDT PM CDT Historical Provider LAB POCT ORDERABLES-MANUAL Performing Organization Address City/[facility]/ZIP Code Phon e Number [facility] LABORATORIES - [address], [place] [address] [facility] (ABNORMAL) Blood Gas with Coox, Arterial (11/22/2014 2:32 PM CDT) [facility] Method Time Signature Arterial Art Line [facility] Sample Site [facility] FIO2 0.50 .21=AIR [facility] pO2 109 (H) 80 - 100 [facility] MM HG [facility] pCO2 71 (H) 35 - 45 [facility] MM HG [facility] HCO3 30 (H) 22 - 26 [facility] MMOL/L LABORATORIES [facility] Hb 14.3 13.5 - [facility] 17.5 G/DL [facility] MetHb <1.0 <1.6 % [facility] LABORATORIES [facility] CtO2 19.5 (L) 21.0 - [facility] 23.0 VOL LABORATORIES - % [facility] Device BPAP [facility] Spont. 20 [facility] breaths/min [facility] pH 7.22 (L) 7.35 - [facility] 7.45 PH [facility] Base Excess 2 -2 - 2 [facility] MMOL/L [facility] O2Hb 96.1 94.0 - [facility] 98.0 % [facility] COHb 1.1 <3.0 % [facility] Specimen Anatomical Collection Method Collection Time Receive d Time (Source) Location / / Volume Laterality 11/22/2014 2:32 PM 5 2:32 CDT PM CDT Berkley Kaufman M.D. LAB BLOOD NON ADD-ON Performing Organization Address City/State/ZIP Code Phon e Number [facility] LABORATORIES - [address] [place] [address] [facility] (ABNORMAL) Glucose, POCT (11/22/2014 2:31 PM CDT) [facility] Method Time Signature Glucose, POCT, 166 (H) 70 - 140 [facility] B MG/DL [facility] Sample Site, [employer] Blood Gas, LABORATORIES - POCT [facility] Specimen Anatomical Collection Method Collection Time Receive d Time (Source) Location / / Volume Laterality 11/22/2014 2:31 PM 5 2:31 CDT PM CDT Historical Provider LAB POCT ORDERABLES-MANUAL Performing Organization Address City/[facility]/ZIP [facility] Phon e Number [facility] LABORATORIES - [address] [place] [phone] [facility] (ABNORMAL) BMP (Basic Metabolic Panel) (11/22/2014 12:27 PM CDT) [facility] Method Time Signature Creatinine 2.5 (H) 0.8 - 1.3 [facility] MG/DL [facility] eGFR 27 (L) >60 [facility] Non-Black/Afric ML/MIN/BS LABORATORIES - an Turkmen A [facility] HX Bicarbonate, 28 22 - 29 [facility] P/S MMOL/L LABORATORIES - [facility] Glucose, S 138 70 - 140 [facility] MG/DL LABORATORIES - [facility] Sodium, P 135 135 - 145 [facility] MMOL/L LABORATORIES - [facility] Chloride, S 95 (L) 98 - 107 [facility] MMOL/L LABORATORIES - [facility] eGFR-Black/Afri 32 (L) >60 [facility] can Turkmen ML/MIN/BS LABORATORIES - A [facility] BUN (Blood Urea 52 (H) 8 - 24 [facility] Nitrogen), S MG/DL LABORATORIES - [facility] Anion Gap 12 7 - 15 [facility] LABORATORIES - [facility] Potassium, P 6.3 (>) 3.6 - 5.2 [facility] MMOL/L LABORATORIES - [facility] Specimen Anatomical Collection Method Collection Time Receive d Time (Source) Location / / Volume Laterality 11/22/2014 12:27 11/22/2014 PM CDT 12:27 PM CDT Ana Gomez M.D. LAB BLOOD ADD-ON Performing Organization Address City/State/ZIP Code Phon e Number [facility] LABORATORIES - [address] [place] [phone] [facility] ECG 12 Lead (11/22/2014 12:14 PM CDT) Specimen (Source) Anatomical Collection Method Collection Time Re ceived Time Location / / Volume Laterality 11/22/2014 12:14 PM CDT [facility] RADIOLOGY SYSTEM - 11/22/2014 1:04 PM CDT 22Nov2014 12:14 VENTRICULAR RATE 53 Atrial flutter with 4:1 A-V conduction Right bundle branch block Left anterior fascicular block Bifascicular block No previous ECGs available [id number]^CARL ??^GLORIA Graham Procedure Note Gloria May M.D., M.B. - 11/27/2017F ormatting of this note might be different from the original. 22Nov2014 12:14 VENTRICULAR RATE 53 Atrial flutter with 4:1 A-V conduction Right bundle branch block Left anterior fascicular block Bifascicular block No previous ECGs available [id number]^CARL MENDEZ^GLORIA Graham Emelia Gay, PNoe M.S. ECG ORDERABLES Performing Organization Address City/State/ZIP Code Phon e Number HX [facility] RADIOLOGY SYSTEM [address] [place] [address], [place] (ABNORMAL) Blood Gas without Coox, Arterial (11/22/2014 12:12 PM CDT) [facility] gist Method Time Signature Arterial R-Radial [facility] Sample Site [facility] FIO2 0.40 .21=AIR [facility] pO2 78 (L) 80 - 100 [facility] MM HG [facility] pCO2 67 (H) 35 - 45 [facility] MM HG [facility] pH 7.24 (L) 7.35 - [facility] 7.45 PH [facility] Base Excess 1 -2 - 2 [facility] MMOL/L [facility] HCO3 28 (H) 22 - 26 [facility] MMOL/L [facility] Device CFM [facility] Spont. 16 [facility] breaths/min [facility] Specimen Anatomical Collection Method Collection Time Receive d Time (Source) Location / / Volume Laterality 11/22/2014 12:12 11/22/2014 PM CDT 12:12 PM CDT Ana Gomez M.D. LAB BLOOD NON ADD-ON Performing Organization Address City/State/ZIP Code Phon e Number [facility] LABORATORIES - [address], [place] [address] [facility] DX Chest Portable 1 View (11/22/2014 12:05 PM CDT) Anatomical Region Laterality Modality Chest N/A Radiographic Imaging Specimen (Source) Anatomical Collection Method Collection Time Re ceived Time Location / / Volume Laterality 11/22/2014 12:05 PM CDT Impressions 11/22/2014 12:08 PM CDT Shallow inspiration. Perihilar consolidation possibly representing atelectasis or infiltrate. Chest otherwise negative. Electronically signed by: ?? Cuauhtemoc Denton M.D. [phone] 22-Nov-2014 12:08 Narrative 11/22/2014 12:08 PM CDT [...] negative. Electronically signed by: Cuauhtemoc Denton M.D. [phone] 22-Nov-2014 12:08 Emelia Gay, Kristyn., M.S. IMG DIAGNOSTIC IM AGING PROCEDURES (ABNORMAL) Glucose, POCT (11/22/2014 11:00 AM CDT) [facility] Method Time Signature Glucose, POCT, 141 (H) 70 - 140 [facility] B MG/DL [facility] Specimen Anatomical Collection Method Collection Time Receive d Time (Source) Location / / Volume Laterality 11/22/2014 11:00 11/22/2014 AM CDT 11:00 AM CDT Historical Provider LAB POCT ORDERABLES-MANUAL Performing Organization Address City/State/ZIP Code Phon e Number [facility] LABORATORIES - [address] [place] [phone] [facility] (ABNORMAL) Electrolyte (Chem 4) Panel (11/22/2014 9:00 AM CDT) [facility] Method Time Signature Chloride, S 95 (L) 98 - 107 [facility] MMOL/L [facility] HX Bicarbonate, 25 22 - 29 [facility] P/S MMOL/L [facility] Creatinine 2.4 (H) 0.8 - 1.3 [facility] MG/DL [facility] eGFR 28 (L) >60 [facility] Non-Black/Afric ML/MIN/BS LABORATORIES - an Turkmen A [facility] Anion Gap 16 (H) 7 - 15 [facility] Glucose, S 130 70 - 140 [facility] MG/DL [facility] Sodium, S 136 135 - 145 [facility] MMOL/L [facility] Potassium, S 6.8 (>) 3.6 - 5.2 [facility] MMOL/L [facility] eGFR-Black/Afri 34 (L) >60 [facility] can Turkmen ML/MIN/BS LABORATORIES - A [facility] BUN (Blood Urea 48 (H) 8 - 24 [facility] Nitrogen), S MG/DL [facility] Specimen Anatomical Collection Method Collection Time Receive d Time (Source) Location / / Volume Laterality 11/22/2014 9:00 AM 5 9:00 CDT AM CDT Eric Hess M.D. LAB BLOOD ADD-ON Performing Organization Address City/[facility] Phon e Number [facility] - [address] [place], [place] [address] [facility] (ABNORMAL) Blood Gas without Coox, Arterial (11/22/2014 7:15 AM CDT) [facility] [employer] Method Time Signature Device CFM [facility] pO2 56 (L) 80 - 100 [facility] MM HG [facility] pCO2 81 (H) 35 - 45 [facility] MM HG [facility] pH 7.19 (L) 7.35 - [facility] 7.45 PH [facility] Base Excess 2 -2 - 2 [facility] MMOL/L [facility] HCO3 31 (H) 22 - 26 [facility] MMOL/L [facility] Arterial R-Radial [facility] Sample Site [facility] - [facility] FIO2 0.70 .21=AIR [facility] Specimen Anatomical Collection Method Collection Time Receive d Time (Source) Location / / Volume Laterality 11/22/2014 7:15 AM 5 7:15 CDT AM CDT Eric Hess M.D. LAB BLOOD NON ADD-ON Performing Organization Address City/[facility] Code Phon e Number [facility] - [address] [place], [place] [address] [facility] (ABNORMAL) Glucose, POCT (11/22/2014 6:14 AM CDT) [facility] [employer] Method Time Signature Glucose, 157 (H) 70 - 140 [facility] POCT, B MG/DL [facility] - [facility] Sample Site, Capillary [facility] Blood Gas, LABORATORIES - POCT [facility] Last Intake NPO [facility] Specimen Anatomical Collection Method Collection Time Receive d Time (Source) Location / / Volume Laterality 11/22/2014 6:14 AM 5 6:14 CDT AM CDT Historical Provider LAB POCT ORDERABLES-MANUAL Performing Organization Address City/State/ZIP Code Phon e Number [facility] LABORATORIES - [address] [place] [phone] [facility] (ABNORMAL) Blood Gas without Coox, Arterial (11/22/2014 12:23 AM CDT) [employer] Method Time Signature Device OFM [facility] pO2 60 (L) 80 - 100 [facility] MM HG [facility] Arterial L-Radial [facility] Sample Site [facility] O2 Flow 10.0 L/MIN [facility] pCO2 70 (H) 35 - 45 [facility] MM HG [facility] pH 7.25 (L) 7.35 - [facility] 7.45 PH [facility] Base Excess 3 (H) -2 - 2 [facility] MMOL/L [facility] HCO3 30 (H) 22 - 26 [facility] MMOL/L [facility] Specimen Anatomical Collection Method Collection Time Receive d Time (Source) Location / / Volume Laterality 11/22/2014 12:23 11/22/2014 AM CDT 12:23 AM CDT Berkley Kaufman M.D. LAB BLOOD NON ADD-ON Performing Organization Address City/State/ZIP Code Phon e Number [facility] LABORATORIES - [address] [place] [phone] [facility] (ABNORMAL) Glucose, POCT (11/21/2014 10:09 PM CDT) [employer] Method Time Signature Glucose, 164 (H) 70 - 140 [facility] POCT, B MG/DL [facility] Sample Site, Capillary [facility] Blood Gas, LABORATORIES - POCT [facility] Last Intake NPO [facility] Specimen Anatomical Collection Method Collection Time Receive d Time (Source) Location / / Volume Laterality 11/21/2014 10:09 11/21/2014 PM CDT 10:09 PM CDT Historical Provider LAB POCT ORDERABLES-MANUAL Performing Organization Address City/State/ZIP Code Phon e Number [facility] LABORATORIES - [address] [place] [address] [facility] (ABNORMAL) Glucose, POCT (11/21/2014 6:10 PM CDT) [facility] Method Time Signature Glucose, POCT, 156 (H) 70 - 140 [facility] B MG/DL [facility] Specimen Anatomical Collection Method Collection Time Receive d Time (Source) Location / / Volume Laterality 11/21/2014 6:10 PM 5 6:10 CDT PM CDT Historical Provider LAB POCT ORDERABLES-MANUAL Performing Organization Address City/[facility] Code Phon e Number [facility] LABORATORIES - [address], [place] [address] [facility] (ABNORMAL) Glucose, POCT (11/21/2014 2:03 PM CDT) [facility] Signature Glucose, 173 (H) 70 - 140 [facility] POCT, B MG/DL LABORATORIES [facility] Sample Site, Capillary [facility] Blood Gas, LABORATORIES - POCT [facility] Last Intake > 4 hours [facility] Specimen Anatomical Collection Method Collection Time Receive d Time (Source) Location / / Volume Laterality 11/21/2014 2:03 PM 5 2:03 CDT PM CDT Historical Provider LAB POCT ORDERABLES-MANUAL Performing Organization Address City/[facility]/ZIP Code Phon e Number [facility] LABORATORIES - [address] [place] [phone] [facility] (ABNORMAL) Glucose, POCT (11/21/2014 1:15 PM CDT) [facility] Method Archie Signature Glucose, 151 (H) 70 - 140 [facility] POCT, B MG/DL [facility] Sample Site, Capillary [facility] Blood Gas, LABORATORIES - POCT [facility] Specimen Anatomical Collection Method Collection Time Receive d Time (Source) Location / / Volume Laterality 11/21/2014 1:15 PM 5 1:15 CDT PM CDT Historical Provider LAB POCT ORDERABLES-MANUAL Performing Organization Address City/[facility] Phon e Number [facility] LABORATORIES - [address], [place] [address] [facility] Glucose, POCT (11/21/2014 11:46 AM CDT) [facility] Method Archie Signature Glucose, 140 70 - 140 [facility] POCT, B MG/DL LABORATORIES - [facility] Sample Site, Capillary [facility] Blood Gas, LABORATORIES - POCT [facility] Specimen Anatomical Collection Method Collection Time Receive d Time (Source) Location / / Volume Laterality 11/21/2014 11:46 11/21/2014 AM CDT 11:46 AM CDT Nuno Sawant M.D. LAB POCT ORDERABLES-MANUAL Performing Organization Address [facility] Phon e Number [facility] LABORATORIES - [address] [place] [phone] [facility] Glucose, POCT (11/21/2014 10:43 AM CDT) P athologist Signature Glucose, POCT, 113 70 - 140 [facility] B MG/DL LABORATORIES - [facility] Specimen Anatomical Collection Method Collection Time Receive d Time (Source) Location / / Volume Laterality 11/21/2014 10:43 11/21/2014 AM CDT 10:43 AM CDT Historical Provider LAB POCT ORDERABLES-MANUAL Performing Organization Address City/[facility] Phon e Number [facility] LABORATORIES - [address] [place], [place] [address] [facility] Glucose, POCT (11/21/2014 9:46 AM CDT) P athologist Signature Glucose, POCT, 115 70 - 140 [facility] B MG/DL LABORATORIES - [facility] Specimen Anatomical Collection Method Collection Time Receive d Time (Source) Location / / Volume Laterality 11/21/2014 9:46 AM 5 9:46 CDT AM CDT Historical Provider LAB POCT ORDERABLES-MANUAL Performing Organization Address City/[facility] Phon e Number [facility] LABORATORIES - [address] [place], [place] [address] [facility] (ABNORMAL) Glucose, POCT (11/21/2014 8:43 AM CDT) Patholo gist Method Time Signature Glucose, 64 (L) 70 - 140 [facility] POCT, B MG/DL LABORATORIES - [facility] Sample Site, Capillary [facility] Blood Gas, LABORATORIES - POCT [facility] Specimen Anatomical Collection Method Collection Time Receive d Time (Source) Location / / Volume Laterality 11/21/2014 8:43 AM 5 8:43 CDT AM CDT Nuno Sawant M.D. LAB POCT ORDERABLES-MANUAL Performing Organization Address City/[facility]/ZIP Code Phon e Number [facility] LABORATORIES - [address] [place] [phone] [facility] Glucose, POCT (11/21/2014 7:26 AM CDT) [facility] [employer] Method Time Signature Last Intake NPO [facility] Glucose, 91 70 - 140 [facility] POCT, B MG/DL LABORATORIES - [facility] Sample Site, Capillary [facility] Blood Gas, LABORATORIES - POCT [facility] Specimen Anatomical Collection Method Collection Time Receive d Time (Source) Location / / Volume Laterality 11/21/2014 7:26 AM 5 7:26 CDT AM CDT Historical Provider LAB POCT ORDERABLES-MANUAL Performing Organization Address City/[facility] Code Phon e Number [facility] LABORATORIES - [address] [place], [place] [address] [facility] (ABNORMAL) Glucose, POCT (11/21/2014 6:57 AM CDT) [facility] [employer] Method Time Signature Last Intake > 4 hours [facility] Glucose, 61 (L) 70 - 140 [facility] POCT, B MG/DL LABORATORIES - [facility] Sample Site, Capillary [facility] Blood Gas, LABORATORIES - POCT [facility] Specimen Anatomical Collection Method Collection Time Receive d Time (Source) Location / / Volume Laterality 11/21/2014 6:57 AM 5 6:57 CDT AM CDT Historical Provider LAB POCT ORDERABLES-MANUAL Performing Organization Address City/[facility]/ZIP Code Phon e Number [facility] LABORATORIES - [address] [phone] [facility] documented in this encounter Visit Diagnoses Not on filedocumented in this encounter Additional Health Concerns Assessment Noted Time PHQ-9 Depression Total Score: 18 02/14/2013 9:53 AM CD T documented as of this encounter
--- OUTSIDE RECORDS SUMMARY | 2022-08-05 10:19 | XMS_ITS | Encounter Summary ---
:1960 Author Organization [facility] Address [address] [place] [address] Care Team Providers Name Role Phone Unavailable Primary Care Provider Unavailable Encounter Details Date Type Department Care Team Description 08/25/2014 Hospital Encounter HX [facility] Cintia Cobb M.D. [address] [place] [phone] (Wo rk) Social History Tobacco Use Types [...] 185 cm (6' 0.84) 08/25/2014 9:56 AM SHIP SURVEYOR Body Mass Index - - documented in this encounter Miscellaneous Notes Miscellaneous - Cintia Cobb M.D. - 09/04/2014 1:17 PM SHIP SURVEYOR Normal Results Letter 04 September 2014 LAZ LUNA [address] [place] [address] [address] [facility] [phone] Dear LAZ LUNA, I am pleased to [...] Chol/HDL Ratio 4 08/25/2014 Sincerely, CINTIA KILGORE [address] [address] Electronic Signature Electronically Signed By: CINTIA KILGORE MD On: 04 September 2014 This document has images extracted. Source: [facility] POWERCHART Document Id: [id number] Electronically signed by Conversion, [facility] Civil Clerk [id number] at 02/03/2017 4:34 PM CDT documented in this encounter Plan of Treatment Not on filedocumented as of this encounter Procedures Procedure Name Priority Date/Time Associated Diagnosis Comme nts LIPID PANEL, S Routine 08/25/2014 10:17 AM Result s for this SHIP SURVEYOR procedure are i n the results section . documented in this encounter Results (ABNORMAL) Lipid Panel (08/25/2014 10:17 AM SHIP SURVEYOR) P athologist Signature Cholesterol, 122 0 - [...] / Volume Laterality Blood 08/25/2014 10:17 AM SHIP SURVEYOR Cintia Copeland M.D. LAB BLOOD ADD-ON Performing Organization Address City/State/ZIP Code Phon e Number POWERCHART documented in this encounter Visit Diagnoses Not on filedocumented in this encounter Additional Health Concerns Assessment Noted Time PHQ-9 Depression Total Score: 18 02/14/2013 9:53 AM CD T documented as of this encounter
--- OUTSIDE RECORDS SUMMARY | 2022-08-05 10:20 | XMS_ITS | Encounter Summary ---
:1960 Author Organization [facility] Address [address] [place] [address] Care Team Providers Name Role Phone Unavailable [...]
--- OUTSIDE RECORDS SUMMARY | 2022-08-05 10:20 | XMS_ITS | Encounter Summary ---
:1960 Author Organization [facility] Address [address] [place] [address] Care Team Providers Name Role Phone Unavailable Primary Care Provider Unavailable Encounter Details Date Type Department Care Team Description 03/06/2014 Hospital Encounter HX [facility] Song FlCintia domingo M.D. [address] [place] [phone] (Wo rk) Social History Tobacco Use [...] SOB, dizziness, chest pain. Per Dr. Reyes (holton Provider) patient advised to return if symptoms develope. Patient understood. Please advise anynew orders. Source: [facility] [email or web address] Document Id: [id number] Miscellaneous - Alvina Langston, L.P.N. - 03/06/2014 [...] LANGSTON LPN - 03/06/2014 16:01 CDT [facility] Document Id: [id number] CDT!9 Miscellaneous - Alvina Langston, L.P.N. - [...] LANGSTON LPN - 03/06/2014 16:01 CDT Source: [employer] Document Id: [id number] CDT!9 documented in this encounter Plan of Treatment Not on filedocumented as of this encounter Visit Diagnoses Not on filedocumented in this encounter Additional Health Concerns Assessment Noted Time PHQ-9 Depression Total Score: 18 02/14/2013 9:53 AM CD T documented as of this encounter
--- OUTSIDE RECORDS SUMMARY | 2022-08-05 10:20 | XMS_ITS | Encounter Summary ---
:1960 Author Organization [facility] Address [address] [place] [address] Care Team Providers Name Role Phone Unavailable Primary Care Provider Unavailable Encounter Details Date Type Department Care Team Description 07/26/2013 Hospital Encounter HX [facility] HLT Provider, Elder robledo Social History Tobacco Use Types Packs/Day Years Used Date Smoking Tobacco: Never Assessed Sex Assigned at Date Recorded Not on file documented as of this encounter Miscellaneous Notes Miscellaneous - Conversion, Historical Provider Ser - 07/26/2013 12:00 AM EMBROIDERY CUTTER [id number]NEO LETTER July 26, 2013 RE: Laz Luna 1960 EMR: [id number] TO WHOM IT MAY CONCERN: This letter is to inform you that the above named individual has completed the eight session [facility] Program for weight management and to fulfill the requirements of [facility] gastric bypass surgery process. This individual was in attendance at all eight sessions and participated in the group discussions. Sincerely, Sebas Soares Asp, Ed.D., L.P. Amy Monsour, [facility] Source: [facility] RWHXTRANSXRTFSYS Document Id: [id number] documented in this encounter Plan of Treatment Not on filedocumented as of this encounter Visit Diagnoses Not on filedocumented in this encounter Additional Health Concerns Assessment Noted Time PHQ-9 Depression Total Score: 18 02/14/2013 9:53 AM CD T documented as of this encounter
--- OUTSIDE RECORDS SUMMARY | 2022-08-05 10:20 | XMS_ITS | Encounter Summary ---
:1960 Author Organization [facility] Address [address] [place] [address] Care Team Providers Name Role Phone Unavailable Primary Care Provider Unavailable Encounter Details Date Type Department Care Team Description 07/12/2013 Hospital Encounter HX [facility] Aranza Ramirez P.AJoby [address] [place] [phone] (Wo rk) Social History Tobacco Use Types Packs/Day Years Used Date Smoking Tobacco: Never Assessed Sex Assigned at Date Recorded Not on file documented as of this encounter Nursing Notes Chhaya Ramirez - 07/12/2013 12:00 AM CST [id number] CHIEF COMPLAINT/REASON FOR VISIT Medical Nutrition Therapy [...] from the room and proceeded to get stonework supervisor, Jeovanny Jansen M.D. After discussion with Dr. Jansen, Dr. Jansen had a discussion with the patient regarding his inappropriateness. Education session was, therefore, terminated and there was no further time spent with patient. ADMINISTRATIVE BILLING Total Time: Approximately 5 minutes. Chhaya Allred R.D., L.D./sweetie Electronically Signed By: CHHAYA ALLRED On: 07/13/2013 03:41 PM Source: [facility] MHSDOLBEYNONRADSYS Document Id: [id number] [employer] documented in this encounter Plan of Treatment Not on filedocumented as of this encounter Visit Diagnoses Not on filedocumented in this encounter Additional Health Concerns Assessment Noted Time PHQ-9 Depression Total Score: 18 02/14/2013 9:53 AM CD T documented as of this encounter
--- OUTSIDE RECORDS SUMMARY | 2022-08-05 10:20 | XMS_ITS | Encounter Summary ---
:1960 Author Organization [facility] Address [address] [place] [address] Care Team Providers Name Role Phone Unavailable Primary Care Provider Unavailable Encounter Details Date Type Department Care Team Description 09/30/2013 Hospital Encounter [facility] Cintia Aguirre M.D. [address] [place] [phone] (Wo rk) Social History Tobacco Use Types Packs/Day Years Used Date Smoking Tobacco: Never Assessed Sex Assigned at Date Recorded Not on file documented as of this encounter Last Filed Vital Signs Vital Sign Reading Time Taken Comments Blood Pressure 167/85 09/30/2013 12:07 PM [employer] Pulse 56 09/30/2013 12:07 PM [employer] Temperature - - Respiratory Rate 16 09/30/2013 11:38 AM [employer] Oxygen Saturation - - Inhaled Oxygen Concentration - - Weight 153 kg (336 lb 6.8 oz) 09/30/2013 11:38 AM [employer] Height 183 cm (6' 0.05) 09/30/2013 11:38 AM [employer]LECTIONS Body Mass Index 45.57 09/30/2013 11:38 AM [employer] documented in this encounter Progress Notes Cintia Cobb M.D. - 09/30/2013 11:33 AM CST [id number] CHIEF COMPLAINT/REASON FOR VISIT Followup hypertension. HISTORY [...] Victoza and Lantus. He follows with an blue leather sorter in [place] and is also currently going through the [...] due for repeat. He does see an blue leather sorter. At this time we are going to increase his Lantus to 58 units at bedtime and we will continue to monitor. Other lab work is up-to-date. He also requested we refill his test strips. Patient Education Ready to learn No apparent learning barriers were identified Learning preferences include listening Explained diagnosis and treatment plan Patient/Child/Caregiver expressed understanding of the content Cintia Song M.D./[facility] Electronically Signed By: CINTIA KILGORE MD On: 10/04/2013 07:28 AM Source: [facility] MHSDOLBEYNONRADSYS Document Id: [id number] [employer] documented in this encounter Miscellaneous Notes Miscellaneous - Conversion, Historical Provider Ser - 10/03/2013 2:42 PM [employer] Med Management Document Contains Addenda Addendum by CINTIA KILGORE MD on 04 October 2013 07:10:57 [employer] From: CINTIA KILGORE MD Sent: 10/04/2013 07:10:56 [employer] Subject: RE:Med Management Approved Order:simvastatin (simvastatin 40 mg oral tablet) 1 tab(s) PO Bedtime Qty: 90 tab(s) Refills: [address] [id number] Signed by CINTIA KILGORE MD 10/04/2013 07:10:49 From: OLIVIA BECERRA V To: CINTIA KILGORE MD; OLIVIA BECERRA V; Sent: 10/03/2013 14:42:45 [employer] Subject: Med Management On hold pending signature Order:simvastatin (simvastatin 40 mg oral tablet) 1 tab(s) PO Bedtime Qty: 90 tab(s) Refills: [address] [facility][id number] pt had lipid panel done 07/11/13 in [place] .This was last filled 04/08 by provider there Source: [facility] POWERCHART Document Id: [id number] Miscellaneous - Cintia Cobb M.D. - 09/30/2013 12:30 PM [employer] Ambulatory Patient Summary [address] [address] Visit Information Name: LAZ LUNA [facility] Number: [id number] Current Date: 09/30/2013 12:30:51 Physicians [...] Oral, once a day New Routed to [address] [address] docusate-senna (Dok Plus) 2 Tablet(s), Oral, once [...] appointment detail needed. Your Goals/Additional instructions: Source: [facility] POWERCHART Document Id: [id number] [employer] Miscellaneous - Cintia Cobb M.D. - 09/30/2013 12:30 PM [employer] Ambulatory Depart Summary [facility] [address] [place] [address] Visit Information Name: LAZ LUNA [facility] Number: [id number] Visit Date: 09/30/2013 12:30:45 Attending [...] Oral, once a day New Routed to [address] [address] docusate-senna (Dok Plus) 2 Tablet(s), [...] in case of emergency. Additional Information: Source: [facility] POWERCHART Document Id: [id number] [employer] Osbaldo - Anoop Mujica L.P.N. - 09/30/2013 12:07 PM CST Ambulatory Vitals Height Weight Ambulatory Vitals Height Weight Entered On: 09/30/2013 12:08 [employer] Performed On: 09/30/2013 12:07 [employer] by ANOOP MUJICA LPN Vitals/Ht/Wt Peripheral Pulse Rate : 56 /min (LOW) Systolic Blood Pressure : 167 mmHg (>HHI) Diastolic Blood Pressure : 85 mmHg (Comment: Daniel B/P Average [ANOOP MUJICA LPN - 09/30/2013 12:07 [employer]] ) NIBP Mean : 112 mmHg ANOOP MUJICA LPN - 09/30/2013 12:07 [employer] Source: [facility] ClipaboutCHART Document Id: [id number] [employer]!6 [employer] Osbaldo - Anoop Mujica LPiliP.N. - 09/30/2013 11:38 AM CST Adult Entrepreneur Intake/History Adult Entrepreneur Intake/History Entered On: 09/30/2013 11:44 [employer] Performed On: 09/30/2013 11:38 [employer] by MUJICA, ANOOP R BONE CHAR KILN TENDER Intake Chief Complaint : Recheck couple of [...] kg/m2 ANOOP MUJICA LPN - 09/30/2013 11:38 [employer] General Info Information Given By : Patient Preferred Communication Mode : Verbal Languages : Bahraini ANOOP MUJICA LPN - 09/30/2013 11:38 [employer] Subjective Pain Symptoms : No ANOOP MUJICA LPN - 09/30/2013 11:38 [employer] Dependent Habits Tobacco Use/Currently Using : No Smoking Status : Never smoker ANOOP MUJICA LPN - 09/30/2013 11:38 [employer] Tobacco Use Grid Last Use : never ANOOP MUJICA LPN 09/30/2013 11:38 [employer] Caffeine Use Grid Caffeine Use : Current Type : Coffee, Soft drinks Frequency : Weekly Amount : soda- weekly; coffee- 1x/week ANOOP MUJICA LPN - 09/30/2013 11:38 [employer] Recreational Drug Use Grid Drug Use : None ANOOP MUJICA LPN 09/30/2013 11:38 [employer] Source: [facility] POWERCHART Document Id: [id number] [employer]!39 [employer] documented in this encounter Plan of Treatment Not on filedocumented as of this encounter Visit Diagnoses Not on filedocumented in this encounter Additional Health Concerns Assessment Noted Time PHQ-9 Depression Total Score: 18 02/14/2013 9:53 AM CD T documented as of this encounter
--- OUTSIDE RECORDS SUMMARY | 2022-08-05 10:20 | XMS_ITS | Encounter Summary ---
:1960 Author Organization [facility] Address [address] [place] [address] Care Team Providers Name Role Phone Unavailable Primary Care Provider Unavailable Encounter Details Date Type Department Care Team Description 12/14/2013 - Hospital Encounter [facility]X [facility] John Norman, 06/30/2014 PARKER Riggs [address] [place] [phone] Social History Tobacco Use Types Packs/Day Years Used Date Smoking Tobacco: Never Assessed Sex Assigned at Date Recorded Not on file documented as of this encounter Discharge Summaries Rigoberto Bello, P.T. - 04/24/2014 12:00 AM CDT [id number] PHYSICAL THERAPY DISCHARGE NOTE The patient was [...] BELLO DPT On: 04/26/2014 01:16 PM Source: [facility] MHSDOLBEYNONRADSYS Document Id: [id number] documented in this encounter Progress Notes Micah Donaldson P.T. - 01/11/2014 12:00 AM CDT [id number] PHYSICAL THERAPY PROGRESS NOTE CHIEF COMPLAINT/REASON FOR [...] DONALDSON DPT On: 01/19/2014 08:36 AM Source: [facility] MHSDOLBEYNONRADSYS Document Id: [id number] Rigoberto Bello P.T. - 01/04/2014 12:00 AM CDT [id number] PHYSICAL THERAPY PROGRESS NOTE CHIEF COMPLAINT Patient [...] BELLO DPT On: 01/06/2014 08:42 AM Source: [facility] MHSDOLBEYNONRADSYS Document Id: [id number] Rigoberto Bello P.T. - 12/28/2013 12:00 AM CDT [id number] PHYSICAL THERAPY PROGRESS NOTE CHIEF COMPLAINT Patient [...] BELLO DPT On: 12/30/2013 07:41 AM Source: [facility] MHSDOLBEYNONRADSYS Document Id: [id number] Micah Donaldson PSilvano. - 12/26/2013 12:00 AM CDT [id number] REVISION HISTORY January 12, 2014, at 2:01 [...] DONALDSON DPT On: 01/13/2014 01:39 PM Source: [facility] MHSDOLBEYNONRADSYS Document Id: [id number] Rigoberto Bello P.T. - 12/21/2013 12:00 AM CDT [id number] PHYSICAL THERAPY DAILY PROGRESS NOTE CHIEF COMPLAINT [...] BELLO DPRandy On: 12/23/2013 09:24 AM Source: [facility] MHSDOLBEYNONRADSYS Document Id: [id number] Micah Donaldson P.T. - 12/19/2013 12:00 AM CDT [id number] PHYSICAL THERAPY PROGRESS NOTE CHIEF COMPLAINT/REASON FOR [...] DONALDSON DPT On: 12/26/2013 04:11 PM Source: [facility] MHSDOLBEYNONRADSYS Document Id: [id number] documented in this encounter Consult Notes Rigoberto Bello P.T. - 12/14/2013 12:00 AM CDT [id number] PHYSICAL THERAPY INITIAL EVALUATION REFERRAL SOURCE/REFERRING DIAGNOSIS [...] tight, with fingers especially. 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 Negative Yeboah Tony and negative [...] active range of motion, within 2 weeks. FREIGHT CONDUCTOR GOAL: 1. Patient will report no pain [...] Rigoberto Bello D.P.T./caron cc: John Norman M.D. [address] [place] [phone] Electronically Signed By: RIGOBERTO BELLO DPRandy On: 12/19/2013 01:26 PM Modified by and Electronically Signed by: RIGOBERTO BELLO DPT On: 12/19/2013 01:26 PM Co-Signed By: JOHN NORMAN MD On: 12/19/2013 02:31 PM Source: [facility] WINSOMESDDEMOND Document Id: [id number] documented in this encounter Plan of Treatment Not on filedocumented as of this encounter Visit Diagnoses Not on filedocumented in this encounter Additional Health Concerns Assessment Noted Time PHQ-9 Depression Total Score: 18 02/14/2013 9:53 AM CD T documented as of this encounter
--- OUTSIDE RECORDS SUMMARY | 2022-08-05 10:20 | XMS_ITS | Encounter Summary ---
:1960 Author Organization [facility] Address [address] [place] [address] Care Team Providers Name Role Phone Unavailable Primary Care Provider Unavailable Encounter Details Date Type Department Care Team Description 07/12/2013 Hospital Encounter HX [facility] Mehreen Perez M.S., R.N., A.C.N.S.-B.C. [address] [place] [phone] (Wo rk) Social History Tobacco Use [...]
--- OUTSIDE RECORDS SUMMARY | 2022-08-05 10:20 | XMS_ITS | Encounter Summary ---
:1960 Author Organization [facility] Address [address] [place] [address] Care Team Providers Name Role Phone Unavailable Primary Care Provider Unavailable Encounter Details Date Type Department Care Team Description 10/18/2013 Hospital Encounter [facility] Cintia Cobb M.D. [address] [place] [phone] (Wo rk) Social History Tobacco Use Types Packs/Day Years Used Date Smoking Tobacco: Never Assessed Sex Assigned at Date Recorded Not on file documented as of this encounter Plan of Treatment Not on filedocumented as of this encounter Procedures Procedure Name Priority Date/Time Associated Diagnosis Comme nts POTASSIUM, S/P Routine 10/18/2013 10:37 AM Result s for this UNDERWATER TRAPPER procedure are i n the results section. HEMOGLOBIN A1C, B Routine 10/18/2013 10:37 AM Res ults for this UNDERWATER TRAPPER procedure are i n the results section. documented in this encounter Results Potassium (10/18/2013 10:37 AM UNDERWATER TRAPPER) P athologist Signature Potassium, S 4.0 3.6 - 4.8 POWERCHART MMOLL Specimen (Source) Anatomical Collection Method Collection Time Re ceived Time Location / / Volume Laterality Blood 10/18/2013 10:37 AM UNDERWATER TRAPPER Cintia Copeland M.D. LAB BLOOD ADD-ON Performing Organization Address City/State/ZIP Code Phon e Number POWERCHART (ABNORMAL) Hemoglobin A1c (10/18/2013 10:37 AM UNDERWATER TRAPPER) Analysis Performed At Patho logist Time Signature Hemoglobin A1c, 7.65 (H) 4.00 - POWERCHART B 6.00 Specimen (Source) Anatomical Collection Method Collection Time Re ceived Time Location / / Volume Laterality Blood 10/18/2013 10:37 AM UNDERWATER TRAPPER Cintia Copeland M.D. LAB BLOOD ADD-ON Performing Organization Address City/State/ZIP Code Phon e Number POWERCHART documented in this encounter Visit Diagnoses Not on filedocumented in this encounter Additional Health Concerns Assessment Noted Time PHQ-9 Depression Total Score: 18 02/14/2013 9:53 AM CD T documented as of this encounter
--- OUTSIDE RECORDS SUMMARY | 2022-08-05 10:20 | XMS_ITS | Encounter Summary ---
:1960 Author Organization [facility] Address [address] [place] [address] Care Team Providers Name Role Phone Unavailable Primary Care Provider Unavailable Encounter Details Date Type Department Care Team Description 01/04/2014 Hospital Encounter [facility] Cintia Cobb M.D. [address] [place] [phone] (Wo rk) Social History Tobacco Use [...] for him to call to reschedule. Source: [facility] POWERCHART Document Id: [id number] documented in this encounter Plan of Treatment Not on filedocumented as of this encounter Visit Diagnoses Not on filedocumented in this encounter Additional Health Concerns Assessment Noted Time PHQ-9 Depression Total Score: 18 02/14/2013 9:53 AM CD T documented as of this encounter
--- OUTSIDE RECORDS SUMMARY | 2022-08-05 10:20 | XMS_ITS | Encounter Summary ---
:1960 Author Organization [facility] Address [address] [place] [address] Care Team Providers Name Role Phone Unavailable Primary Care Provider Unavailable Encounter Details Date Type Department Care Team Description 07/13/2014 Hospital Encounter HX [facility] Pratik Aguila M.D. [address] [place] [phone] (Wo rk) Social History Tobacco Use Types Packs/Day Years Used Date Smoking Tobacco: Never Assessed Sex Assigned at Date Recorded Not on file documented as of this encounter Last Filed Vital Signs Vital Sign Reading Time Taken Comments Blood Pressure 137/79 07/13/2014 12:07 PM NURSE REVIEWER Pulse 45 07/13/2014 12:07 PM NURSE REVIEWER Temperature - - Respiratory Rate 18 07/13/2014 12:07 PM NURSE REVIEWER Oxygen Saturation - - Inhaled Oxygen Concentration - - Weight - - Height 185 cm (6' 0.84) 07/13/2014 12:07 PM NURSE REVIEWER Body Mass Index - - documented in this encounter Discharge Summaries Geneva Woodson R.N. - 07/13/2014 12:58 PM CST ED Discharge Instructions [address] [id number] Name: JEREMYNOEMÍ Date of : 1960 12:00 AM Visit Date: 07/13/2014 11:26 AM [facility] Number: [id number] Address: [address] [place] [phone] Primary Care Provider: KEVIN KILGORE MD IMPORTANT: [facility] in [place] would like to thank you for allowing us to assist you with your healthcare needs. The following includes patient education materials and informationregarding your injury/illness. Diagnosis: Sprain Shoulder Active L; Tendonitis Elbow Follow-Up Instructions: With: Address: When: KEVIN KILGORE [address] [place] [phone] Business (1) Within As Needed Comments: If symptoms worsen Your Upcoming Appointments: Date Time Location Provider 08/09/2014 18:00 [facility] Kevin Song MD Patient Education Materials: [id number] TENDONITIS A tendon is the thick fibrous [...] as directed by your healthcare provider ?? [facility], [address] [place] [address]. All rights reserved. This information is not intended as a substitute for professional medical care. Always follow your healthcare professional's instructions. [id number] SHOULDER SPRAIN A sprain is a stretching [...] of the shoulder or upper arm ?? [facility], [address] [place] [address]. All rights reserved. This information is not intended as a substitute for professional medical care. Always follow your healthcare professional's instructions. [id number] MUSCLE STRAIN,EXTREMITY A MUSCLE STRAIN is a [...] tingly -- Pain or swelling increases ?? [id number] [facility], [address] [place] [address]. All rights reserved. This information is not [...] a ride home with a responsible republican. I, LUNA, ED , or responsible republican have received this information and my questions have been answered. I have discussed any challenges I see with this plan with the nurse or physician. Patient Signature or Responsible Democrat/Relationship Date Time Provider Signature Date Time Medication [...] a ride home with a responsible republican. I, JEREMY, NOEMÍ , or responsible republican have received this information and my questions have been answered. I have discussed any challenges I see with this plan with the nurse or physician. Patient Signature or Responsible Democrat/Relationship Date Time Provider Signature Date Time Source: [employer] POWERCHART Document Id: [id number] E REVIEWER Geneva Woodson R.N. - 07/13/2014 12:58 PM CST ED Depart Summary [facility] Emergency Department Clinical Discharge Summary PERSON INFORMATION Name NOEMÍ LUNA Age 54 Years 1960 12:00 AM Sex Male Language Indonesian PCP KEVIN KILGORE MD Marital Status N [id number] Visit Id Visit Reason Arm pain-swelling; Arm pain-swelling; Left Arm Hurts Specialty Enc Type Emergency Med Service Emergency Medicine Referred by Track Group [facility] Discharge 07/13/2014 12:58 PM Tracking Id [id number] Checkout 07/13/2014 12:58 PM Checkin 07/13/2014 11:26 AM Acuity 4 -Less Urgent Dispo Type * Discharged to Home or Self Care Arrival 07/13/2014 11:26 AM Reg Status Complete LOS 000 01:32 Address: [address] [place] [phone] Comment: PROVIDER INFORMATION Provider Role Provider Contact Time SABRA AGUILA MD ED Provider 07/13/14 11:33 MANAN RAMÍREZ VALVE MECHANIC Nurse 07/13/14 12:09 DIAGNOSIS Sprain Shoulder Active L; Tendonitis Elbow Comment: PATIENT EDUCATION INFORMATION Instructions: TENDONITIS; SPRAIN SHOULDER; MUSCLE STRAIN, Extremity Follow up: With: Address: When: KEVIN KILGORE [address] [place] [phone] Business (1) Within As Needed Comments: If symptoms worsen [facility] POWER[facility] Document Id: [id number] E REVIEWER documented in this encounter ED Notes Geneva Woodson R.N. - 07/13/2014 12:56 PM CST ED Pain Assessment ED Pain Assessment Entered On: 07/13/2014 12:56 NURSE REVIEWER Performed On: 07/13/2014 12:56 NURSE REVIEWER by GENEVA WOODSON RN Pain Assessment Pain Symptoms : Yes Pain Medication Requested : No GENEVA WOODSON RN - 07/13/2014 12:56 NURSE REVIEWER Source: [employer] Document Id: [id number] NURSE REVIEWER!4 E REVIEWER Geneva Woodson R.N. - 07/13/2014 12:55 PM CST ED Disposition Summary ED Disposition Summary Entered On: 07/13/2014 12:56 NURSE REVIEWER Performed On: 07/13/2014 12:55 NURSE REVIEWER by GENEVA WOODSON RN ED Disposition Summary Accompanied By : Alone Mode of Discharge : Ambulatory Transportation : Private vehicle Printed Discharge Instructions Given to Patient : Yes Patient Status at Discharge from ED : Improved GENEVA WOODSON RN - 07/13/2014 12:55 NURSE REVIEWER Source: [employer] Document Id: [id number] NURSE REVIEWER!7 E REVIEWER Sabra Aguila M.D. - 07/13/2014 12:44 PM [...] Note : Chief Complaint Description 07/13/2014 11:58 NURSE REVIEWER Chief Complaint Description 54 year old male [...] on 09/29/2012 at 52 years. Comments: 09/30/2012 NURSE REVIEWER 15:06 STEVE COUCH CNP left Genital warts (ICD-9-CM 078.19) Comments: 09/30/2013 NURSE REVIEWER 11:47 ANOOP MESSER MOLD BUILDER onset unknown Tinea pedis* (ICD-9-CM 110.4) Comments: 09/30/2013 NURSE REVIEWER 11:47 ANOOP MESSER MOLD BUILDER onset unknown Tinea cruris. (ICD-9-CM 110.3) Comments: 09/30/2013 NURSE REVIEWER 11:47 ANOOP MESSER MOLD BUILDER onset unknown. Surgical history: Cystoscopy ([id number]) on 12/26/2009 at 49 Years. Comments: 02/20/2010 08:36 - STEVE ANDREA CNP [facility] / normal PSA, TOTAL SCREENING (G0103) on 12/26/2009 at 49 Years. Comments: 02/20/2010 08:38 - STEVE ANDREA CNP Done at [facility] / Result: 1.55 Discectomy ([id number]) on 02/19/1989 at 28 Years. Comments: 12/28/2009 09:38 - MYROM, STEVE J LAST SCOURER lumbar L4-L5. Family history: Hypertension Father Congestive [...] Examination Vital Signs: Vital Signs 07/13/2014 12:07 NURSE REVIEWER Temperature Core 37.2 DegC Peripheral Pulse Rate 45 /min <LLOW Respiratory Rate 18 /min SpO2 93 % LOW Systolic Blood Pressure 137 mmHg Diastolic Blood Pressure 79 mmHg BP Location Left upper 07/13/2014 9:15 NURSE REVIEWER Peripheral Pulse Rate 46 /min <LLOW Systolic Blood Pressure 156 mmHg HI Diastolic Blood Pressure 78 mmHg Mean Arterial Pressure 104 mmHg , Measurements 07/13/2014 12:07 NURSE REVIEWER Height 185 cm 07/13/2014 10:24 NURSE REVIEWER Height 185 cm 07/13/2014 9:15 NURSE REVIEWER Height 185 cm 07/13/2014 9:09 NURSE REVIEWER Height 185 cm , oxygen saturation. General: [...] from flowsheet : Vital Signs 07/13/2014 12:07 NURSE REVIEWER Temperature Core 37.2 DegC Peripheral Pulse Rate 45 /min <LLOW Respiratory Rate 18 /min SpO2 93 % LOW Systolic Blood Pressure 137 mmHg Diastolic Blood Pressure 79 mmHg BP Location Left upper 07/13/2014 9:15 NURSE REVIEWER Peripheral Pulse Rate 46 /min <LLOW Systolic [...] AGUILA MD On: 07/14/2014 10:08 AM Source: [facility] POWERCHART Document Id: [id number]} E REVIEWER Manan Ramírez R.N. - 07/13/2014 12:03 PM CST ED Primary Assessment Document Has Been Updated ED Primary Assessment Entered On: 07/13/2014 12:05 NURSE REVIEWER Performed On: 07/13/2014 12:03 NURSE REVIEWER by MANAN RAMÍREZ RN Reason For Visit (As Of: 07/13/2014 12:05:33 NURSE REVIEWER) Problems(Active) BPH without urinary obstruction (ICD-9-CM :600.00 ) Name of Problem: BPH without urinary obstruction; Recorder: STEVE ANDREA CNP; Confirmation: Confirmed ; Classification: Medical ; Code: 600.00 ; Contributor System: Leads DirectChart ; Last Updated: 02/15/2010 10:00 CDT ; [...] System: PowerChart ; Last Updated: 07/24/2011 10:45 NURSE REVIEWER ; Life Cycle Date: 12/05/2010 ; Life [...] head ; OnsetDate: 09/29/2012 ; Recorder: STEVE ANDRAE CNP; Confirmation: Confirmed ; Classification: Medical ; Code: 813.05 ; Contributor System: Leads DirectChart ; Last Updated: 09/30/2012 15:06 NURSE REVIEWER ; Life Cycle Date: 09/30/2012 ; Life [...] Code: 695.89 ; Last Updated: 07/14/2012 14:36 NURSE REVIEWER ; Life Cycle Status: Active ; Responsible [...] Medical ; Code: 278.00 ; Contributor System: [employer] ; Last Updated: 09/05/2010 9:56 NURSE REVIEWER ; Life Cycle Date: 09/05/2010 ; Life [...] ICD-9-CM ; Comments: 09/30/2013 11:IKE ISAACICA R MOLD BUILDER onset unknown Ulcer of skin NOS (ICD-9-CM :707.9 ) Name of Problem: Ulcer of skin NOS ; Recorder: HALEIGH SCHULTZ CNP; Confirmation: Confirmed ; Classification: UPDATE NEEDED ; Code: 707.9 ; Contributor System: PowerChart ; Last Updated: 09/18/2010 8:25 NURSE REVIEWER ; Life Cycle Date: 09/18/2010 ; Life Cycle Status: Active ; Responsible Provider: HALEIGH SCHULTZ CNP; Vocabulary: ICD-9-CM ; Comments: 09/30/2013 11:IKE ISAACICA R MOLD BUILDER onset unknown Unspecified Adjustment Reaction (ICD-9-CM :309.9 ) Name of Problem: Unspecified Adjustment Reaction ; Onset Date: 05/05/2013 ; Confirmation: Confirmed ; Classification: Medical ; Code: 309.9 ; Contributor System: [facility]_HX_PR_UPLOAD ; Last Updated: 12/03/2013 18:36 CDT ; [...] PNED ; Probability: 0 ; Diagnosis Code: [id number] Triage Mode of Arrival ED : Private vehicle Track : Medical Languages : Indonesian Treatments Prior to Arrival : Home treatments Is Patient Female and 13-50 no hysterectomy : No MANAN RAMÍREZ RN - 07/13/2014 12:03 NURSE REVIEWER Pain Assessment Pain Symptoms : Yes MANAN RAMÍREZ RN - 07/13/2014 12:03 NURSE REVIEWER ID Screen Drug Resistant Organism : No Travel Within Last 21 Days : No MANAN RAMÍREZ RN - 07/13/2014 12:03 NURSE REVIEWER Respiratory Airway : Patent Respirations : Unlabored Respiratory Pattern : Regular MANAN RAMÍREZ RN - 07/13/2014 12:03 NURSE REVIEWER Cardiovascular Skin Color : Normal for ethnicity Skin Description : Dry Skin Temperature : Warm MANAN RAMÍREZ RN - 07/13/2014 12:03 NURSE REVIEWER Neurological Last Well Time Known : Not applicable Level of Consciousness : Alert Orientation : Oriented x 3 Characteristics of Speech : Appropriate for age MANAN RAMÍREZ RN - 07/13/2014 12:03 NURSE REVIEWER ED Psychosocial Affect/Behavior : Calm, Cooperative, Appropriate Domestic Abuse Concerns : None MANAN RAMÍREZ RN - 07/13/2014 12:03 NURSE REVIEWER Gastrointestinal Nutrition ED : Adequate MANAN RAMÍREZ RN - 07/13/2014 12:03 NURSE REVIEWER Musculoskeletal Fall Prevention Education Provided : NA MANAN RAMÍREZ RN - 07/13/2014 12:03 NURSE REVIEWER Social Habits Tobacco Use/Currently Using : No Smoking Status : Never smoker MANAN RAMÍREZ RN - 07/13/2014 12:03 NURSE REVIEWER Tobacco Use Grid Last Use : never MANAN RAMÍREZ RN - 07/13/2014 12:03 NURSE REVIEWER Alcohol Use Grid Alcohol Use : No MANAN RAMÍREZ RN - 07/13/2014 12:03 NURSE REVIEWER Recreational Drug Use Grid Drug Use : None MANAN RAMÍREZ RN - 07/13/2014 12:03 NURSE REVIEWER Source: [facility] POWERCHART Document Id: [id number] NURSE REVIEWER!44 E REVIEWER Manan Ramírez R.N. - 07/13/2014 11:58 AM CST ED Triage Assessment Document Has Been Updated ED Triage Assessment Entered On: 07/13/2014 12:03 NURSE REVIEWER Performed On: 07/13/2014 11:58 NURSE REVIEWER by MANAN RAMÍREZ RN Reason For Visit (As Of: 07/13/2014 12:03:04 NURSE REVIEWER) Problems(Active) BPH without urinary obstruction (ICD-9-CM :600.00 ) Name of Problem: BPH without urinary obstruction; Recorder: STEVE ANDREA CNP; Confirmation: Confirmed ; Classification: Medical ; Code: 600.00 ; Contributor System: Leads DirectChart ; Last Updated: 02/15/2010 10:00 CDT ; [...] System: PowerChart ; Last Updated: 07/24/2011 10:45 NURSE REVIEWER ; Life Cycle Date: 12/05/2010 ; Life [...] Medical ; Code: 607.84 ; Contributor System: Leads DirectChart ; Last Updated: 12/28/2009 9:40 CDT ; [...] System: PowerChart ; Last Updated: 09/30/2012 15:06 NURSE REVIEWER ; Life Cycle Date: 09/30/2012 ; Life [...] Code: 695.89 ; Last Updated: 07/14/2012 14:36 NURSE REVIEWER ; Life Cycle Status: Active ; Responsible [...] Medical ; Code: 278.00 ; Contributor System: [employer] ; Last Updated: 09/05/2010 9:56 NURSE REVIEWER ; Life Cycle Date: 09/05/2010 ; Life [...] ICD-9-CM ; Comments: 09/30/2013 11:ANOOP ISAAC R MOLD BUILDER onset unknown Ulcer of skin NOS (ICD-9-CM :707.9 ) Name of Problem: Ulcer of skin NOS ; Recorder: HALEIGH SCHULTZ CNP; Confirmation: Confirmed ; Classification: UPDATE NEEDED ; Code: 707.9 ; Contributor System: PowerChart ; Last Updated: 09/18/2010 8:25 NURSE REVIEWER ; Life Cycle Date: 09/18/2010 ; Life Cycle Status: Active ; Responsible Provider: HALEIGH SCHULTZ CNP; Vocabulary: ICD-9-CM ; Comments: 09/30/2013 11:ANOOP ISAAC MOLD BUILDER onset unknown Unspecified Adjustment Reaction (ICD-9-CM :309.9 ) Name of Problem: Unspecified Adjustment Reaction ; Onset Date: 05/05/2013 ; Confirmation: Confirmed ; Classification: Medical ; Code: 309.9 ; Contributor System: [facility]_HX_PR_UPLOAD ; Last Updated: 12/03/2013 18:36 CDT ; Life Cycle Status: Active ; Vocabulary: ICD-9-CM ; Comments: - Unspecified adjustment reaction Urge Incontinence (ICD-9-CM :788.31 ) Name of Problem: Urge Incontinence ; Recorder: STEVE ANDREA; Confirmation: Confirmed ; Classification: Medical ; Code: 788.31 ; Contributor System: Leads DirectChart ; Last Updated: 02/20/2010 8:39 CDT ; Life Cycle Date: 02/20/2010 ; Life Cycle Status: Active ; Responsible Provider: STEVE ANDREA CNP; Vocabulary: ICD-9-CM ; Comments: 09/30/2013 11:46 - ANOOP QUEVEDO MOLD BUILDER onset unknown Diagnoses(Active) Arm pain-swelling Date: 07/13/2014 ; Diagnosis Type: Reason For Visit ; Confirmation: Complaint of ;Clinical Dx: Arm pain-swelling ; Classification: Medical ; Clinical Service: Non-Specified ; Code: PNED ; Probability: 0 ; Diagnosis Code: [id number] Triage Chief Complaint Description : 54 year old male presents to ER with left arm pain Mode of Arrival ED : Private vehicle Track : Medical Languages : Indonesian Treatments Prior to Arrival : Home treatments Is Patient Female and 13-50 no hysterectomy : No MANAN RAMÍREZ RN - 07/13/2014 11:58 NURSE REVIEWER Pain Assessment Pain Symptoms : Yes MANAN RAMÍREZ RN - 07/13/2014 11:58 NURSE REVIEWER Pain Pain Assessment Grid Pain 1 Location : Upper arm Intensity : 0 MANAN RAMÍREZ RN - 07/13/2014 11:58 NURSE REVIEWER ED Physician Notification Time ED Physician Notification Time : 07/13/2014 12:02 NURSE REVIEWER MANAN RAMÍREZ RN - 07/13/2014 11:58 NURSE REVIEWER ERIN DCP GENERIC CODE Tracking Acuity : 4 -Less Urgent Tracking Group : [facility] MANAN RAMÍREZ RN - 07/13/2014 11:58 NURSE REVIEWER Allergy (As Of: 07/13/2014 12:03:04 NURSE REVIEWER) Allergies (Active) Cipro Estimated Onset Date: Unspecified ; Created By: STEVE ANDREA CNP; Reaction Status: Active ;Category: Drug ; Substance: Cipro ; Type: Allergy ; Updated By: STEVE ANDREA CNP; Reviewed Date: 07/13/2014 12:02 NURSE REVIEWER Influenza Virus Vaccine Estimated Onset Date: Unspecified ; Reactions: diarrhea ; Created By: STEVE ANDRAE CNP; Reaction Status: Active ; Category: Drug ; Substance: Influenza Virus Vaccine ; Type: Intolerance ; Updated By: STEVE ANDREA CNP; Reviewed Date: 07/13/2014 12:02 NURSE REVIEWER ID Screen Drug Resistant Organism : No Travel Within Last 21 Days : No MANAN RAMÍREZ RN - 07/13/2014 11:58 NURSE REVIEWER Immunizations Immunizations Current : Unknown Influenza : None MANAN RMAÍREZ RN - 07/13/2014 11:58 NURSE REVIEWER Source: [facility] [employer] Document Id: [id number] NURSE REVIEWER!27 E REVIEWER documented in this encounter Miscellaneous Notes Miscellaneous - Geneva Woodson R.N. - 07/13/2014 12:56 PM CST Valuables/Belongings Valuables/Belongings Entered On: 07/13/2014 12:56 NURSE REVIEWER Performed On: 07/13/2014 12:56 NURSE REVIEWER by GENEVA WOODSON RN Valuables/Belongingglendy Home Medication Disposition : None brought in with patient GENEVA WOODSON RN - 07/13/2014 12:56 NURSE REVIEWER Source: [facility] [employer] Document Id: [id number] NURSE REVIEWER!3 E REVIEWER Miscellaneous - Geneva Woodson R.N. - 07/13/2014 11:26 AM CST Facility Charge Ticket 2.0 11.0 DX Facility Charge Ticket 2.0 11.0 DX Entered On: 07/13/2014 12:57 NURSE REVIEWER Performed On: 07/13/2014 11:26 NURSE REVIEWER by GENEVA WOODSON RN Facility Charge Ticket [...] Control : 5 Lynx Visit Level : 74307 Level 3 Treatments Prior to Arrival : Home treatments GENEVA WOODSON RN - 07/13/2014 12:56 NURSE REVIEWER [facility] POWERCHART Document Id: [id number] NURSE REVIEWER!17 E REVIEWER documented in this encounter Plan of Treatment Not on filedocumented as of this encounter Visit Diagnoses Not on filedocumented in this encounter Additional Health Concerns Assessment Noted Time PHQ-9 Depression Total Score: 18 02/14/2013 9:53 AM CD T documented as of this encounter
--- OUTSIDE RECORDS SUMMARY | 2022-08-05 10:20 | XMS_ITS | Encounter Summary ---
:1960 Author Organization [facility] Address [address] [place] [address] Care Team Providers Name Role Phone Unavailable Primary Care Provider Unavailable Encounter Details Date Type Department Care Team Description 09/13/2013 Hospital Encounter HX [facility] Song FlCintia domingo M.D. [address] [place] [phone] (Wo rk) Social History Tobacco Use Types Packs/Day Years Used Date Smoking Tobacco: Never Assessed Sex Assigned at Date Recorded Not on file documented as of this encounter Last Filed Vital Signs Vital Sign Reading Time Taken Comments Blood Pressure 142/98 09/13/2013 1:47 PM MARINE PROPULSION TECHNICIAN Pulse - - Temperature - - Respiratory Rate - - Oxygen Saturation - - Inhaled Oxygen Concentration - - Weight - - Height - - Body Mass Index - - documented in this encounter Miscellaneous Notes Miscellaneous - Harvey Packer LPiliP.N. - 09/13/2013 2:10 PM CST General Message From: HARVEY PACKER LPN To: CINTIA KILGORE MD; Sent: 09/13/2013 14:10:09 MARINE PROPULSION TECHNICIAN Subject: General Message S. Patient came in [...] call him with any questions or concerns. [phone] Verbal permission given to this nurse, you make speak with his . Magali (he calls her Fabiola). Source: [facility] [employer] Document Id: [id number] Miscellaneous - Harvey Packer L.P.N. - 09/13/2013 1:47 PM CST Ambulatory Vitals Height Weight Ambulatory Vitals Height Weight Entered On: 09/13/2013 13:47 MARINE PROPULSION TECHNICIAN Performed On: 09/13/2013 13:47 MARINE PROPULSION TECHNICIAN by HARVEY PACKER LPN Vitals/Ht/Wt Systolic Blood Pressure : 142 mmHg (HI) Diastolic Blood Pressure : 102 mmHg (>HHI) NIBP Mean : 115 mmHg HARVEY PACKER LPN - 09/13/2013 13:47 MARINE PROPULSION TECHNICIAN [facility] Document Id: [id number] MARINE PROPULSION TECHNICIAN!5 NE PROPULSION TECHNICIAN Miscellaneous - Harvey Packer L.P.N. - 09/13/2013 1:47 PM CST Ambulatory Vitals Height Weight Ambulatory Vitals Height Weight Entered On: 09/13/2013 13:47 MARINE PROPULSION TECHNICIAN Performed On: 09/13/2013 13:47 MARINE PROPULSION TECHNICIAN by HARVEY PACKER LPN Vitals/Ht/Wt Systolic Blood Pressure : 144 mmHg (HI) Diastolic Blood Pressure : 98 mmHg (>HHI) NIBP Mean : 113 mmHg HARVEY PACKER LPN - 09/13/2013 13:47 MARINE PROPULSION TECHNICIAN Source: [facility] [employer] Document Id: [id number] MARINE PROPULSION TECHNICIAN!5 NE PROPULSION TECHNICIAN documented in this encounter Plan of Treatment Not on filedocumented as of this encounter Visit Diagnoses Not on filedocumented in this encounter Additional Health Concerns Assessment Noted Time PHQ-9 Depression Total Score: 18 02/14/2013 9:53 AM CD T documented as of this encounter
--- OUTSIDE RECORDS SUMMARY | 2022-08-05 10:20 | XMS_ITS | Encounter Summary ---
:1960 Author Organization [facility] Address [address] [place] [address] Care Team Providers Name Role Phone Unavailable Primary Care Provider Unavailable Encounter Details Date Type Department Care Team Description 11/25/2013 Hospital Encounter HX [facility] Cintia lindquist M.D. [address] [place] [phone] (Wo rk) Social History Tobacco Use [...] cap(s) Refills: 3 Route To Pharmacy - [id number] Signed by CINTIA KILGORE MD 11/29/2013 14:42:55 From: SHIRLENE ABBOTT RN To: CINTIA KILGORE MD; SHIRLENE ABBOTT RN; Sent: 11/28/2013 16:13:30 CDT Subject: Med Management On hold pending signature Order:omeprazole (omeprazole 20 mg oral delayed release capsule) 1 cap(s) PO Daily Qty: 90 cap(s) Refills: 3 Route To Pharmacy - [facility][id number] We have not prescribed this in the past, but it is noted on med list. Prescribed by Cindy Moy CNP. Add dx to list to make it refillable per protocol if you'd like. Source: [employer] Document Id: [id number] Miscellaneous - Tiffany Owens, L.P.N. - 11/25/2013 [...] that his insurance is not covering. Although [facility] pharm. had callled and shared he had a couple of rxs to be picked up.Thank you. co Source: [employer] Document Id: [id number] documented in this encounter Plan of Treatment Not on filedocumented as of this encounter Visit Diagnoses Not on filedocumented in this encounter Additional Health Concerns Assessment Noted Time PHQ-9 Depression Total Score: 18 02/14/2013 9:53 AM CD T documented as of this encounter
--- OUTSIDE RECORDS SUMMARY | 2022-08-05 10:20 | XMS_ITS | Encounter Summary ---
:[address] [facility] Address [address] [place] [address] Care Team Providers Name Role Phone Unavailable Primary Care Provider Unavailable Encounter Details Date Type Department Care Team Description 09/13/2013 Hospital Encounter HX [facility] Cintia Cobb M.D. [address] [place] [phone] (Wo rk) Social History Tobacco Use Types Packs/Day Years Used Date Smoking Tobacco: Never Assessed Sex Assigned at Date Recorded Not on file documented as of this encounter Miscellaneous Notes Miscellaneous - Cintia Cobb M.D. - 09/22/2013 12:13 PM ROTO ROOTER OPERATOR Normal Results Letter 22 September 2013 [facility] [facility] [address] [place] [phone] Dear ED CARLYLE, Please review your lab [...] 07/11/2013 8.6 - 10.0 Sincerely, CINTIA KILGORE [facility] [place] [address] Electronic Signature Electronically Signed By: CINTIA KILGORE MD On: 22 September 2013 This document has images extracted. Source: [facility] [employer] Document Id: [id number] Electronically signed by Conversion, [facility] Systems Analyst Engineer [id number] at 02/03/2017 2:37 PM CDT documented in this encounter Plan of Treatment Not on filedocumented as of this encounter Procedures Procedure Name Priority Date/Time Associated Diagnosis Comme nts BASIC METABOLIC Routine 09/13/2013 1:39 PM Result s for this PANEL, S/P ROTO ROOTER OPERATOR procedure are i n the results section. documented in this encounter Results (ABNORMAL) BMP (Basic Metabolic Panel) (09/13/2013 1:39 PM ROTO ROOTER OPERATOR) P athologist Signature Anion Gap 14 10 [...] POWERCHART MMOLL HXeGFR (MDRD) >60 >=60 POWERCHART [id number] eGFR >60 >=60 POWERCHART Black/ [id number] Jamaican Specimen (Source) Anatomical Collection Method Collection Time Re ceived Time Location / / Volume Laterality Blood 09/13/2013 1:39 PM ROTO ROOTER OPERATOR Cintia Copeland M.D. LAB BLOOD ADD-ON Performing Organization Address City/State/ZIP Code Phon e Number POWERCHART documented in this encounter Visit Diagnoses Not on filedocumented in this encounter Additional Health Concerns Assessment Noted Time PHQ-9 Depression Total Score: 18 02/14/2013 9:53 AM CD T documented as of this encounter
--- OUTSIDE RECORDS SUMMARY | 2022-08-05 10:20 | XMS_ITS | Encounter Summary ---
:1960 Author Organization [facility] Address [address] [place] [address] Care Team Providers Name Role Phone Unavailable Primary Care Provider Unavailable Encounter Details Date Type Department Care Team Description 08/30/2013 Hospital Encounter HX [facility] Cintia Aguirre M.D. [address] [place] [phone] (Wo rk) Social History Tobacco Use Types Packs/Day Years Used Date Smoking Tobacco: Never Assessed Sex Assigned at Date Recorded Not on file documented as of this encounter Last Filed Vital Signs Vital Sign Reading Time Taken Comments Blood Pressure 160/100 08/30/2013 11:22 AM ONCOLOGY NAVIGATOR Pulse 56 08/30/2013 11:15 AM ONCOLOGY NAVIGATOR Temperature - - Respiratory Rate - - Oxygen Saturation - - Inhaled Oxygen Concentration - - Weight 149 kg (329 lb 5.9 oz) 08/30/2013 11:15 AM ONCOLOGY NAVIGATOR Height 180 cm (5' 10.87) 08/30/2013 11:15 AM ONCOLOGY NAVIGATOR Body Mass Index 46.11 08/30/2013 11:15 AM ONCOLOGY NAVIGATOR documented in this encounter Progress Notes Cintia Cobb M.D. - 08/30/2013 11:02 AM CST [id number] CHIEF COMPLAINT/REASON FOR VISIT Followup blood pressure. [...] [facility] MHSDOLBEYNONRADSYS Document Id: [id number] LOGY NAVIGATOR documented in this encounter Miscellaneous Notes Miscellaneous - Cintia Cobb M.D. - 08/30/2013 11:53 AM ONCOLOGY NAVIGATOR Ambulatory Patient Summary [facility] [address] [facility] [address] Visit Information Name: LAZ LUNA [facility] Number: [id number] Current Date: 08/30/2013 11:53:32 Physicians [...] [facility] POWERCHART Document Id: [id number] LOGY NAVIGATOR Miscellaneous - Cintia Cobb M.D. - 08/30/2013 11:53 AM ONCOLOGY NAVIGATOR Ambulatory Depart Summary [address] [address] Visit Information Name: LAZ LUNA [facility] Number: [id number] Visit Date: 08/30/2013 11:53:28 Attending [...] times a day This is a CHANGE [address] [address] metFORMIN (metformin 1000 mg oral [...] in case of emergency. Additional Information: Source: [facility] POWERCHART Document Id: [id number] LOGY NAVIGATOR Miscellaneous - Anne Marie Tuttle L.P.N. - 08/30/2013 11:22 AM CST Ambulatory Vitals Height Weight Ambulatory Vitals Height Weight Entered On: 08/30/2013 11:22 ONCOLOGY NAVIGATOR Performed On: 08/30/2013 11:22 ONCOLOGY NAVIGATOR by ANNE MARIE TUTTLE LPN, RT Vitals/Ht/Wt Systolic Blood Pressure : 160 mmHg (HI) Diastolic Blood Pressure : 100 mmHg (>HHI) NIBP Mean : 120 mmHg BP Location : Left upper extremity Blood Pressure Cuff Size : Large ANNE MARIE TUTTLE LPN, RT - 08/30/2013 11:22 ONCOLOGY NAVIGATOR Source: [employer] Document Id: [id number] ONCOLOGY NAVIGATOR!7 LOGY NAVIGATOR Miscellaneous - Anne Marie Tuttle L.P.N. - 08/30/2013 11:15 AM CST Adult Golf Cart Attendant Intake/History Adult Golf Cart Attendant Intake/History Entered On: 08/30/2013 11:18 ONCOLOGY NAVIGATOR Performed On: 08/30/2013 11:15 ONCOLOGY NAVIGATOR by ANNE MARIE TUTTLE LPN, RT Intake [...] ANNE MARIE TUTTLE LPN, - 08/30/2013 11:15 ONCOLOGY NAVIGATOR General Info Information Given By : Patient Preferred Communication Mode : Verbal Languages : Swedish ANNE MARIE TUTTLE LPN, RT - 08/30/2013 11:15 ONCOLOGY NAVIGATOR Subjective Pain Symptoms : No TONYA ANNE MARIE Lindsay LPN, RT - 08/30/2013 11:15 ONCOLOGY NAVIGATOR Dependent Habits Tobacco Use/Currently Using : No Smoking Status : Never smoker ANNE MARIE TUTTLE LPN, RT - 08/30/2013 11:15 ONCOLOGY NAVIGATOR Tobacco Use Grid Last Use : never ANNE MARIE TUTTLE LPN, RT - 08/30/2013 11:15 ONCOLOGY NAVIGATOR Caffeine Use Grid Caffeine Use : Current Type : Coffee, Soft drinks Frequency : Weekly Amount : soda- weekly; coffee- 1x/week ANNE MARIE TUTTLE LPN, RT - 08/30/2013 11:15 ONCOLOGY NAVIGATOR Recreational Drug Use Grid Drug Use : None ANNE MARIE TUTTLE LPN, RT - 08/30/2013 11:15 ONCOLOGY NAVIGATOR Source: [employer] Document Id: [id number] ONCOLOGY NAVIGATOR!37 LOGY NAVIGATOR documented in this encounter Plan of Treatment Not on filedocumented as of this encounter Visit Diagnoses Not on filedocumented in this encounter Additional Health Concerns Assessment Noted Time PHQ-9 Depression Total Score: 18 02/14/2013 9:53 AM CD T documented as of this encounter
--- OUTSIDE RECORDS SUMMARY | 2022-08-05 10:20 | XMS_ITS | Encounter Summary ---
:1960 Author Organization [facility] Address [address] [place] [address] Care Team Providers Name Role Phone Unavailable [...]
--- OUTSIDE RECORDS SUMMARY | 2022-08-05 10:20 | XMS_ITS | Encounter Summary ---
:1960 Author Organization [facility] Address [address] [place] [address] Care Team Providers Name Role Phone Unavailable Primary Care Provider Unavailable Encounter Details Date Type Department Care Team Description 07/13/2014 Hospital Encounter HX [facility] Liam Gutierrez M.D. [address] [place] [phone] (Wo rk) Social History Tobacco Use Types Packs/Day Years Used Date Smoking Tobacco: Never Assessed Sex Assigned at Date Recorded Not on file documented as of this encounter Last Filed Vital Signs Vital Sign Reading Time Taken Comments Blood Pressure 156/78 07/13/2014 9:15 AM PAEDIATRIC SURGEON Pulse 46 07/13/2014 9:15 AM PAEDIATRIC SURGEON Temperature - - Respiratory Rate - - Oxygen Saturation - - Inhaled Oxygen Concentration - - Weight - - Height 185 cm (6' 0.84) 07/13/2014 9:15 AM PAEDIATRIC SURGEON Body Mass Index - - documented in this encounter Consult Notes Amol Gutierrez M.D. - 07/13/2014 9:[address] [facility] REFERRAL SOURCE Referral is from Dr. Duncan [...] GUTIERREZ MD On: 07/13/2014 01:28 PM Source: [facility] MHSDOLBEYNONRADSYS Document Id: [id number] IATRIC SURGEON documented in this encounter Miscellaneous Notes Miscellaneous - Mehreen Washington, RPiliN. - 07/13/2014 9:15 AM CST Adult Varnish Thinner Intake/History Document Has Been Updated Adult Varnish Thinner Intake/History Entered On: 07/13/2014 9:17 PAEDIATRIC SURGEON Performed On: 07/13/2014 9:15 PAEDIATRIC SURGEON by MEHREEN WASHINGTON membership coordinator Chief Complaint : Lowewr extremity edema and HTN Peripheral Pulse Rate : 46 /min (<LLOW) Systolic Blood Pressure : 156 mmHg (HI) Diastolic Blood Pressure : 78 mmHg NIBP Mean : 104 mmHg Height : 185 cm(Converted to: 6 ft 1 inch(es), 73 inch(es)) MEHREEN WASHINGTON RN - 07/13/2014 9:15 PAEDIATRIC SURGEON General Info Information Given By : Patient Languages : Arabic Is Patient Female and 13-50 no hysterectomy : No MEHREEN WASHINGTON RN - 07/13/2014 9:15 PAEDIATRIC SURGEON Subjective Pain Symptoms : No Cardiovascular Symptoms : Edema MEHREEN WASHINGTON RN - 07/13/2014 9:15 PAEDIATRIC SURGEON Dependent Habits Tobacco Use/Currently Using : No Smoking Status : Never smoker MEHREEN WASHINGTON RN - 07/13/2014 9:15 PAEDIATRIC SURGEON Tobacco Use Grid Last Use : never MEHREEN WASHINGTON RN - 07/13/2014 9:15 PAEDIATRIC SURGEON Alcohol Use : No MEHREEN WASHINGTON RN - 07/13/2014 9:15 PAEDIATRIC SURGEON Caffeine Use Grid Caffeine Use : Current Type : Coffee, Soft drinks Frequency : Weekly Amount : soda- weekly; coffee- 1x/week MEHREEN WASHINGTON RN - 07/13/2014 9:15 PAEDIATRIC SURGEON Recreational Drug Use Grid Drug Use : None MEHREEN WASHINGTON RN - 07/13/2014 9:15 PAEDIATRIC SURGEON Allergy (As Of: 07/13/2014 09:17:25 PAEDIATRIC SURGEON) Allergies (Active) Cipro Estimated Onset Date: Unspecified [...] : MEHREEN Engle RN - 07/13/2014 9:15 PAEDIATRIC SURGEON [facility] Document Id: [id number] PAEDIATRIC SURGEON!34 IATRIC SURGEON documented in this encounter Plan of Treatment Not on filedocumented as of this encounter Visit Diagnoses Not on filedocumented in this encounter Additional Health Concerns Assessment Noted Time PHQ-9 Depression Total Score: 18 02/14/2013 9:53 AM CD T documented as of this encounter
--- OUTSIDE RECORDS SUMMARY | 2022-08-05 10:20 | XMS_ITS | Encounter Summary ---
:1960 Author Organization [facility] Address [address] [place] [address] Care Team Providers Name Role Phone Unavailable Primary Care Provider Unavailable Encounter Details Date Type Department Care Team Description 07/26/2013 Hospital Encounter HX [facility] Mehreen Perez M.S., R.N., A.C.N.S[facility]B.[facility]. [address] [place] [phone] (Wo rk) Social History Tobacco Use [...]
--- OUTSIDE RECORDS SUMMARY | 2022-08-05 10:20 | XMS_ITS | Encounter Summary ---
:1960 Author Organization [facility] Address [address] [place] [address] Care Team Providers Name Role Phone Unavailable Primary Care Provider Unavailable Encounter Details Date Type Department Care Team Description 12/16/2013 Hospital Encounter [facility] Cintia Aguirre M.D. [address] [place] [phone] (Wo rk) Social History Tobacco Use [...] Cobb M.D. 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 Source: [facility] POWERCHART Document Id: [id number] Electronically signed by Dayami [facility] Mva Reactor Operator Head [id number] at 02/03/2017 8:59 AM CDT documented in this encounter Plan of Treatment Not on filedocumented as of this encounter Visit Diagnoses Not on filedocumented in this encounter Additional Health Concerns Assessment Noted Time PHQ-9 Depression Total Score: 18 02/14/2013 9:53 AM CD T documented as of this encounter
--- OUTSIDE RECORDS SUMMARY | 2022-08-05 10:20 | XMS_ITS | Encounter Summary ---
:1960 Author Organization [facility] Address [address] [place] [address] Care Team Providers Name Role Phone Unavailable Primary Care Provider Unavailable Encounter Details Date Type Department Care Team Description 04/10/2014 Hospital Encounter [facility]X [facility] Cintia lindquist M.D. [address] [place] [phone] (Wo rk) Social History Tobacco Use [...] On: 04/10/2014 10:44 CDT by ALVINA ROBERTS TRAILER ASSEMBLER Vitals/Ht/Wt Peripheral Pulse Rate : 52 /min (LOW) Systolic Blood Pressure : 156 mmHg (HI) Diastolic Blood Pressure : 74 mmHg NIBP Mean : 101 mmHg BP Location : Left upper extremity Blood Pressure Cuff Size : Large Height : 185 cm(Converted to: 6 ft 1 inch(es), 73 inch(es)) ALVINA ROBERTS LPN - 04/10/2014 10:44 CDT Source: [employer] Document Id: [id number] CDT!9 documented in this encounter Plan of Treatment Not on filedocumented as of this encounter Visit Diagnoses Not on filedocumented in this encounter Additional Health Concerns Assessment Noted Time PHQ-9 Depression Total Score: 18 02/14/2013 9:53 AM CD T documented as of this encounter
--- OUTSIDE RECORDS SUMMARY | 2022-08-05 10:20 | XMS_ITS | Encounter Summary ---
:1960 Author Organization [facility] Address [address] [place] [address] Care Team Providers Name Role Phone Unavailable Primary Care Provider Unavailable Encounter Details Date Type Department Care Team Description 12/06/2013 Hospital Encounter HX NO MAPPING Rocio Norman M.D. [address] [place] [phone] (Wo rk) Social History Tobacco [...] Norman M.D. - 12/06/2013 2:58 PM CDT [id number] HISTORY OF PRESENT ILLNESS Ed is a [...] pain. John Norman M.D./caron Electronically Signed By: OJHN NORMAN MD On: 12/08/2013 10:00 AM Source: [facility] MHSDOLBEYNONRADSYS Document Id: [id number] documented in this encounter Miscellaneous Notes Miscellaneous - John Norman M.D. - 12/06/2013 4:37 PM CDT Ambulatory Patient Summary [facility] [address] [facility] [address] [place] [phone] Visit Information Name: NOEMÍ LUNA [facility] Number: [id number] Current Date: 12/06/2013 16:37:42 Physicians [...] Time Location Reason Provider 12/07/2013 16:30 [facility] Family Med BP issues Duncan MENDEZ, Kevin Piper 12/14/2013 17:15 [facility] PT/OT rt shoulder impingment Ade Gandhi Attention: Contact your local Clinic if further appointment detail needed. Your Goals/Additional instructions: Source: [facility] POWERCHART Document Id: [id number] Miscellaneous - John Norman M.D. - 12/06/2013 4:37 PM CDT Ambulatory Discharge Medication List [address] [phone] Visit Information Name: NOEMÍ LUNA [facility] Number: [id number] Visit Date: 12/06/2013 16:37:40 Attending [...] in case of emergency. Additional Information: Source: [facility] POWERCHART Document Id: [id number] Miscellaneous - Lacie Donaldson R.N. - 12/06/2013 3:07 PM CDT Adult Milk Driver Intake/History Adult Milk Driver Intake/History Entered On: 12/06/2013 15:10 CDT Performed On: 12/06/2013 15:07 CDT by LACIE DONALDSON wastewater treatment plant supervisor Chief Complaint : right shoulder pain that [...] Preferred Communication Mode : Verbal Languages : Zimbabwean LACIE DONALDSON RN - 12/06/2013 15:07 CDT [...] DONALDSON RN - 12/06/2013 15:07 CDT Source: [facility] [employer] Document Id: [id number] CDT!39 documented in this encounter Plan of Treatment Not on filedocumented as of this encounter Visit Diagnoses Not on filedocumented in this encounter Additional Health Concerns Assessment Noted Time PHQ-9 Depression Total Score: 18 02/14/2013 9:53 AM CD T documented as of this encounter
--- OUTSIDE RECORDS SUMMARY | 2022-08-05 10:20 | XMS_ITS | Encounter Summary ---
:1960 Author Organization [facility] Address [address] [place] [address] Care Team Providers Name Role Phone Unavailable Primary Care Provider Unavailable Encounter Details Date Type Department Care Team Description 05/10/2014 Hospital Encounter [facility] [address] [place] [phone] (Wo rk) Social History Tobacco Use [...] CDT From: CINTIA KILGORE MD To: OLIVIA BCEERRA V; Sent: 05/12/2014 14:55:36 CDT Subject: RE: [...] is also a type of insulin Source: [employer] Document Id: [id number] Miscellaneous - Conversion, Historical Provider Ser - [...] BECERRA V - 05/10/2014 12:01 CDT Source: [employer] Document Id: [id number] CDT!11 documented in this encounter Plan of Treatment Not on filedocumented as of this encounter Visit Diagnoses Not on filedocumented in this encounter Additional Health Concerns Assessment Noted Time PHQ-9 Depression Total Score: 18 02/14/2013 9:53 AM CD T documented as of this encounter
--- OUTSIDE RECORDS SUMMARY | 2022-08-05 10:20 | XMS_ITS | Encounter Summary ---
:1960 Author Organization [facility] Address [address] [place] [address] Care Team Providers Name Role Phone Unavailable Primary Care Provider Unavailable Encounter Details Date Type Department Care Team Description 11/18/[address] [facility] Cintia lindquist M.D. [address] [place] [phone] (Wo rk) Social History Tobacco Use [...] covered. Pt will talk to pharmacy. Source: [facility] POWERCHART Document Id: [id number] Electronically signed by Conversion, [facility] Quencher Operator [id number] at 02/03/2017 4:58 AM CDT Miscellaneous - [...] indapamide, Chlorathyazide, hydroclorathyzide, metolazone. Please advise. Source: [employer] Document Id: [id number] Miscellwalter - Tiffany Owens, L.P.N. - 11/18/2013 4:24 PM CDT General Message From: TIFFANY OWENS LPN To: CINTIA KILGORE MD; Sent: 11/18/2013 16:24:01 CDT Subject: General Message lauren Bautista/silvestre repeated 173/93 large cuff, left arm Source: [employer] Document Id: [id number] Miscellaneous - Tiffany Owens, L.P.N. - 11/18/2013 [...] OWENS LPN - 11/18/2013 16:19 CDT Source: [employer] Document Id: [id number] CDT!9 Miscellaneous - Tiffany Owens L.P.N. - 11/18/2013 4:07 PM CDT General Message From: TIFFANY OWENS LPN To: CINTIA KILGORE MD; Sent: 11/18/2013 16:07:19 CDT Subject: General Message Dr. Song, pt.here for 152/82.Left arm ,large cuff .Pulse 48.slight irrg. Will repeat. thank youcolleen Source: [employer] Document Id: [id number] Miscellaneous - Tiffany Owens L.P.N. - 11/18/2013 [...] Fraire LPN - 11/18/2013 16:01 CDT Source: [employer] Document Id: [id number] CDT!9 documented in this encounter Plan of Treatment Not on filedocumented as of this encounter Visit Diagnoses Not on filedocumented in this encounter Additional Health Concerns Assessment Noted Time PHQ-9 Depression Total Score: 18 02/14/2013 9:53 AM CD T documented as of this encounter
--- OUTSIDE RECORDS SUMMARY | 2022-08-05 10:20 | XMS_ITS | Encounter Summary ---
:1960 Author Organization [facility] Address [address] [place] [address] Care Team Providers Name Role Phone Unavailable Primary Care Provider Unavailable Encounter Details Date Type Department Care Team Description 07/13/2013 Hospital Encounter HX [facility] Mehreen Perez M.S., R.N., A.C.N.S.-B.C. [address] [place] [phone] (Wo rk) Social History Tobacco Use [...]
--- OUTSIDE RECORDS SUMMARY | 2022-08-05 10:20 | XMS_ITS | Encounter Summary ---
:1960 Author Organization [facility] Address [address] [place] [address] Care Team Providers Name Role Phone Unavailable Primary Care Provider Unavailable Encounter Details Date Type Department Care Team Description 12/07/[address] [facility] [place] Cintia Aguirre M.D. [address] [place] [phone] (Wo rk) Social History Tobacco Use [...] Cobb M.D. - 12/07/2013 4:34 PM CDT [id number] CHIEF COMPLAINT/REASON FOR VISIT Followup blood pressure. [...] KILGORE MD On: 12/20/2013 09:48 PM Source: [facility] MHSDOLBEYNONRADSYS Document Id: [id number] documented in this encounter Miscellaneous Notes Miscellaneous - Anne Marie Tuttle, L.P.N. - 12/07/2013 5:36 PM CDT Ambulatory Vitals Height Weight Ambulatory Vitals Height Weight Entered On: 12/07/2013 17:38 CDT Performed On: 12/07/2013 17:36 CDT by ANN EMARIE TTUTLE LPN, Vitals/Ht/Wt Systolic Blood Pressure : 149 mmHg (HI) Diastolic Blood Pressure : 86 mmHg NIBP Mean : 107 mmHg BP Location : Left upper extremity Blood Pressure Cuff Size : Large ANNE MARIE TUTTLE LPN, RT - 12/07/2013 17:36 CDT Source: [facility] POWERCHART Document Id: [id number] CDT!7 Miscellaneous - Cintia Cobb M.D. - 12/07/2013 5:28 PM CDT Ambulatory Patient Summary [address] [place], [place] [phone] Visit Information Name: LAZ LUNA [facility] Number: [id number] Current Date: 12/07/2013 17:28:39 Physicians [...] Oral, once a day New Routed to [address] [address] docusate-senna (Dok Plus) 2 Tablet(s), Oral, once a day furosemide (Lasix 20 mg oral tablet) 1 Tablet(s), Oral, once a day New Routed to [address] [address] hydrochlorothiazide (hydrochlorothiazide 25 mg oral [...] appointment detail needed. Your Goals/Additional instructions: Source: [facility] POWERCHART Document Id: [id number] Miscellaneous - Cintia Cobb M.D. - 12/07/2013 5:28 PM CDT Ambulatory Discharge Medication List [facility] [address] [facility] [place], [place] [phone] Visit Information Name: LAZ LUNA [facility] Number: [id number] Visit Date: 12/07/2013 17:28:37 Attending [...] Oral, once a day New Routed to [address] [address] docusate-senna (Dok Plus) 2 Tablet(s), Oral, once a day furosemide (Lasix 20 mg oral tablet) 1 Tablet(s), Oral, once a day New Routed to [address] [address] hydrochlorothiazide (hydrochlorothiazide 25 mg oral [...] in case of emergency. Additional Information: [facility] Frontiers[facility] Document Id: [id number] Miscellaneous - Anne Marie Tuttle, L.P.N. - [...] LPN, RT - 12/07/2013 16:51 CDT Source: [facility] POWERCHART Document Id: [id number] CDT!7 Miscellaneous - Anne Marie Tuttle L.P.N. - 12/07/2013 4:39 PM CDT Adult Level Vial Inspector And Tester Intake/History Adult Level Vial Inspector And Tester Intake/History Entered On: 12/07/2013 16:42 CDT Performed [...] Communication Mode : Verbal Languages : South Korean ANNE MARIE TUTTLE LPN, RT - 12/07/2013 [...] MARIE TUTTLE LPN, 12/07/2013 16:39 CDT Source: [employer] Document Id: [id number] CDT!41 Miscellaneous - Conversion, Historical Provider Ser - 11/28/2013 1:13 PM CDT Med Management Document Contains Addenda Addendum by CINTIA KILGORE MD on 28 November 2013 14:12:59 CDT From: CINTIA KILGORE MD Sent: 11/28/2013 14:12:58 CDT Subject: RE:Med Management Approved Order:allopurinol (allopurinol 300 mg oral tablet) 1 tab(s) PO Daily Qty: 90 tab(s) Duration: 90 day(s) Refills: 3 Substitutions Allowed Route To [id number] Signed by CINTIA KILGORE MD 11/28/2013 14:12:53 From: OLIVIA BECERRA V To: CINTIA KILGORE MD; OLIVIA BECERRA V; Sent: 11/28/2013 13:13:19 CDT Subject: Med Management On hold pending signature Order:allopurinol (allopurinol 300 mg oral tablet) 1 tab(s) PO Daily Qty: 90 tab(s) Duration: 90 day(s) Refills: 3 Substitutions [address] Route To [id number] Source: [facility] POWERCHART Document Id: [id number] documented in this encounter Plan of Treatment Not on filedocumented as of this encounter Visit Diagnoses Not on filedocumented in this encounter Additional Health Concerns Assessment Noted Time PHQ-9 Depression Total Score: 18 02/14/2013 9:53 AM CD T documented as of this encounter
--- OUTSIDE RECORDS SUMMARY | 2022-08-05 10:20 | XMS_ITS | Encounter Summary ---
:1960 Author Organization [facility] Address [address] [place] [address] Care Team Providers Name Role Phone Unavailable Primary Care Provider Unavailable Encounter Details Date Type Department Care Team Description 11/18/2013 Hospital Encounter HX [facility] ED Pratik Aguila M.D. [address] [place] [phone] (Wo rk) Social History Tobacco Use Types [...] 11/20/2013 3:56 PM CDT ED Discharge Instructions [address] [address] Name: JEREMYNOEMÍ Date of : 1960 12:00 AM Visit Date: 11/18/2013 4:27 PM [facility] Number: [id number] [address] [facility] [phone] Primary Care Provider: KEVIN KILGORE MD IMPORTANT: [facility] in [place] would like to thank you for allowing us to assist you with your healthcare needs. The following includes patient education materials and informationregarding your injury/illness. Chief Complaint: Shoulder injury - Major; Shoulder pain-swelling; Right shoulder pain for about a month, getting worse Follow-Up Instructions: With: Address: When: noni Within As Needed Comments: With: Address: When: SASHA ZULETA [address] [place] [address] Business (1) Within As Needed Comments: With: Address: When: KEVIN KILGORE [address] [place] [address] Business (1) Within As Needed Comments: Patient Education Materials: [id number] ROTATOR CUFF TEAR The rotator cuff is [...] of strength in the affected arm ?? 0023-1412 [facility], [address] [place] [address]. All rights reserved. This information is not intended as a substitute for professional medical care. Always follow your healthcare professional's instructions. 819134al SHOULDER IMPINGEMENT SYNDROME The rotator cuff is [...] of strength in the affected side ?? [address], [place] [address]. All rights reserved. This information is not intended as a substitute for professional medical care. Always follow your healthcare professional's instructions. [address] Understanding Rotator Cuff Injuries The rotator cuff [...] surgery to repair the rotator cuff. ?? 1127-4186 [facility], [address] [place] [address]. All rights reserved. This information is not [...] a ride home with a responsible libertarian. I, JEREMY, ED , or responsible libertarian have received this information and my questions have been answered. I have discussed any challenges I see with this plan with the nurse or physician. Patient Signature or Responsible Libertarian/Relationship Date Time Provider Signature Date Time Medication [...] a ride home with a responsible libertarian. I, JEREMY, ED , or responsible libertarian have received this information and my questions have been answered. I have discussed any challenges I see with this plan with the nurse or physician. Patient Signature or Responsible Libertarian/Relationship Date Time Provider Signature Date Time This document has images extracted. Please consider using [employer] for all your patient education needs. Source: [facility] POWERCHART Document Id: [id number] Sabra Aguila M.D. - 11/20/2013 3:56 PM CDT ED Depart Summary [facility] Emergency Department Clinical Discharge Summary PERSON INFORMATION Name NOEMÍ LUNA Age 53 Years 1960 12:00 AM Sex Male Language Rwandan PCP KEVIN KILGORE MD Marital Status Visit Id Visit Reason Shoulder injury - Major; Shoulder pain-swelling; Right shoulder pain for about a month,getting worse Specialty Enc Type Emergency Med Service Emergency Medicine Referred by [facility] ED Discharge 11/18/2013 5:17 PM Tracking Id [id number] Checkout 11/18/2013 5:17 PM Checkin 11/18/2013 4:27 PM Acuity 3 -Urgent Dispo Type * Discharged to Home or Self Care Arrival 11/18/2013 4:27 PM Reg Status LOS 000 00:50 Address: [address] [place] [phone] Comment: PROVIDER INFORMATION Provider Role Provider Contact Time SABRA AGUILA MD ED Provider 11/18/13 16:35 LESLI SOTOMAYOR COOPER APPRENTICE Nurse 11/18/13 16:35 DIAGNOSIS Comment: PATIENT EDUCATION INFORMATION Instructions: ROTATOR CUFF TEAR; SHOULDER IMPINGEMENT SYNDROME; Understanding Rotator Cuff Injuries Follow up: With: Address: When: noni Within As Needed Comments: With: Address: When: SASHA ZULETA [address] [place] [address] Business (1) Within As Needed Comments: With: Address: [facility] [address] [place] [address] Business (1) Within As Needed Comments: [facility] Document Id: [id number] documented in this encounter ED Notes Lesli Sotomayor R.N. - 11/18/2013 5:17 PM CDT ED Pain Assessment ED Pain Assessment Entered On: 11/18/2013 17:17 CDT Performed On: 11/18/2013 17:17 CDT by LESLI SOTOMAYOR RN Pain Assessment Pain Symptoms : Yes LESLI SOTOMAYOR RN - 11/18/2013 17:17 CDT Source: [facility] [employer] Document Id: [id number] CDT!3 Lesli Sotomayor RPiliN. - 11/18/2013 5:16 PM CDT ED Disposition Summary ED Disposition Summary Entered On: 11/18/2013 17:17 CDT Performed On: 11/18/2013 17:16 CDT by LESLI SOTOMAYOR COOPER APPRENTICE Disposition Summary Accompanied By : Alone Mode of Discharge : Ambulatory Transportation : Private vehicle Printed Discharge Instructions Given to Patient : Yes Patient Status at Discharge from ED : Unchanged LESLI SOTOMAYOR RN - 11/18/2013 17:16 CDT Source: [facility] [employer] Document Id: [id number] CDT!7 Sabra Aguila M.D. - 11/18/2013 4:59 [...] on 09/29/2012 at 52 years. Comments: 09/30/2012 [employer]IVER 15:06 STEVE COUCH CNP left Genital warts (ICD-9-CM 078.19) Comments: 09/30/2013 [employer]IVER 11:47 [employer] onset unknown Tinea pedis* (ICD-9-CM 110.4) Comments: 09/30/2013 S[employer] DRIVER 11:47 ANOOP [employer] onset unknown Tinea cruris. (ICD-9-CM 110.3) Comments: 09/30/2013 [employer] DRIVER 11:47 AN[employer]OP [employer] onset unknown. Surgical history: Cystoscopy ([id number]) on 12/26/2009 at 49 Years. Comments: 02/20/2010 08:36 - STEVE ANDREA CNP [facility] / normal PSA, TOTAL SCREENING ([id number]) on 12/26/2009 at 49 Years. Comments: 02/20/2010 08:38 - STEVE ANDREA SUPERVISOR HOT DIP TINNING Done at [facility] / Result: 1.55 Discectomy ([id number]) on 02/19/1989 at 28 Years. Comments: 12/28/2009 09:38 - STEVE ANDREA SUPERVISOR HOT DIP TINNING lumbar L4-L5. 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 ; Life Cycle Date: 12/05/2010 ; Life Cycle Status: Active ; Responsible Provider: STEVE ANDREA CNP; Vocabulary: ICD-9-CM Eczema (ICD-9-CM :692.9 ) Name of Problem: Eczema ; Recorder: STEVE ANDREA CNP; Confirmation: Confirmed ; Classification: Medical ; Code: 692.9 ; Contributor System: PowerChart ; Last Updated: 09/05/2010 9:56 S[employer] HITCH DRIVER ; Life Cycle Date: 09/05/2010 ; Life [...] System: PowerChart ; Last Updated: 09/30/2012 15:06 S[employer] H[employer] HITCH DRIVER ; Life Cycle Date: 09/30/2012 ; Life [...] Comments: 09/30/2013 11:47 - IKE QUEVEDOICA R [employer] onset unknown Hyperlipidemia (ICD-9-CM :272.4 ) Name [...] Code: 695.89 ; Last Updated: 07/14/2012 14:36 S[employer] H[employer] DRIVER ; Life Cycle Status: Active ; Responsible [...] System: PowerChart ; Last Updated: 09/05/2010 9:56 S[employer] H[employer] DRIVER ; Life Cycle Date: 09/05/2010 ; Life Cycle Status: Active ; Responsible Provider: STEVE ANDREA CNP; Vocabulary: ICD-9-CM ; Comments: 09/30/2013 11:ANOOP ISAAC R [employer] onset unknown Optic disc cupping (ICD-9-CM :377.14 [...] Medical ; Code: 110.3 ; Contributor System: Electronifie ; Last Updated: 06/01/2013 9:06 CDT ; Life Cycle Date: 06/01/2013 ; Life Cycle Status: Active ; Responsible Provider: MARILUZ FRAGA MD; Vocabulary: ICD-9-CM ; Comments: 09/30/2013 11:ANOOP ISAAC RLPN onset unknown Tinea pedis* (ICD-9-CM :110.4 ) Name of Problem: Tinea pedis* ; Recorder: MARILUZ FRAGA MD; Confirmation: Confirmed ; Classification: Medical ; Code: 110.4 ; Contributor System: SpotRightChart ; Last Updated: 06/01/2013 9:06 CDT ; Life Cycle Date: 06/01/2013 ; Life Cycle Status: Active ; Responsible Provider: MARILUZ FRAGA MD; Vocabulary: ICD-9-CM ; Comments: 09/30/2013 11:ANOOP ISAAC R [employer] onset unknown Ulcer of skin NOS (ICD-9-CM :707.9 ) Name of Problem: Ulcer of skin NOS ; Recorder: HALEIGH SCHULTZ CNP; Confirmation: Confirmed ; Classification: Medical ; Code: 707.9 ; Contributor System: PowerChart; Last Updated: 09/18/2010 8:25 S[employer]SE HITCH DRIVER ; Life Cycle Date: 09/18/2010 ; Life Cycle Status: Active ; Responsible Provider: HALEIGH SCHULTZ CNP; Vocabulary: ICD-9-CM ; Comments: 09/30/2013 11:47 - ANOOP QUEVEDO LPN onset unknown Urge Incontinence (ICD-9-CM :788.31 ) Name of Problem: Urge Incontinence ; Recorder: STEVE ANDREA; Confirmation: Confirmed ; Classification: Medical ; Code: 788.31 ; Contributor System: Electronifie ; Last Updated: 02/20/2010 8:39 CDT ; Life Cycle Date: 02/20/2010 ; Life Cycle Status: Active ; Responsible Provider: STEVE ANDREA CNP; Vocabulary: ICD-9-CM ; Comments: 09/30/2013 11:46 - ANOOP QUEVEDO LPN onset unknown Triage Chief Complaint Description : see triage Mode of Arrival ED : Private vehicle, Ambulatory Track : Trauma Other Languages : Rwandan Treatments Prior to Arrival : None LESLI SOTOMAYOR RN - 11/18/2013 16:40 CDT Pain Assessment Pain Symptoms : Yes LESLI SOTOMAYOR RN - 11/18/2013 16:40 CDT Respiratory Airway : Patent Respirations : Unlabored Respiratory Pattern : Regular LESLI SOTOMAYOR RN - 11/18/2013 16:40 CDT Cardiovascular Heart [...] Fall Prevention Education Provided : NA LESLI OSTOMAYOR RN - 11/18/2013 16:40 CDT Social Habits Tobacco Use/Currently Using : No Smoking Status : Never smoker LESLI SOTOMAYOR RN - 11/18/2013 16:40 CDT Tobacco Use Grid Last Use : never LESLI SOTOMAYOR RN - 11/18/2013 16:40 CDT Recreational Drug Use Grid Drug Use : None LESLI SOTOMAYOR RN - 11/18/2013 16:40 CDT Source: [facility] POWERCHART Document Id: [id number] CDT!39 Lesli Sotomayor R.N. 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 ; Life Cycle Date: 12/05/2010 ; Life Cycle Status: Active ; Responsible Provider: STEVE ANDREA CNP; Vocabulary: ICD-9-CM Eczema (ICD-9-CM :692.9 ) Name of Problem: Eczema ; Recorder: STEVE ANDREA CNP; Confirmation: Confirmed ; Classification: Medical ; Code: 692.9 ; Contributor System: SpotRightChart ; Last Updated: 09/05/2010 9:56 S[employer] H[employer]SE HITCH DRIVER ; Life Cycle Date: 09/05/2010 ; Life Cycle Status: Active ; Responsible Provider: STEVE ANDREA CNP; Vocabulary: ICD-9-CM ; Comments: 09/30/2013 11:47 - ANOOP QUEVEDO LPN onset unknown Erectile dysfunction* (ICD-9-CM :607.84 ) Name of Problem: Erectile dysfunction* ; Recorder: STEVE ANDREA CNP; Confirmation: Confirmed ; Classification: Medical ; Code: 607.84 ; Contributor System: SpotRightChart ; Last Updated: 12/28/2009 9:40 CDT ; [...] System: PowerChart ; Last Updated: 09/30/2012 15:06 SIX 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 HITCH DRIVER ; Life Cycle Date: 09/30/2012 ; Life [...] Code: 695.89 ; Last Updated: 07/14/2012 14:36 SIX HORSE HITCH DRIVER ; Life Cycle Status: Active ; Responsible [...] System: PowerChart ; Last Updated: 09/05/2010 9:56 SIX HORSE HITCH DRIVER ; Life Cycle Date: 09/05/2010 ; Life Cycle Status: Active ; Responsible Provider: TSEVE ANDREA CNP; Vocabulary: ICD-9-CM ; Comments: 09/30/2013 [...] ; Comments: 09/30/2013 11:47 ANOOP GONZALEZ R [employer] onset unknown Ulcer of skin NOS (ICD-9-CM :707.9 ) Name of Problem: Ulcer of skin NOS ; Recorder: HALEIGH SCHULTZ CNP; Confirmation: Confirmed ; Classification: Medical ; Code: 707.9 ; Contributor System: PowerChart; Last Updated: 09/18/2010 8:25 SIX 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 HITCH DRIVER ; Life Cycle Date: 09/18/2010 ; Life Cycle Status: Active ; Responsible Provider: HALEIGH SCHULTZ CNP; Vocabulary: ICD-9-CM ; Comments: 09/30/2013 11:ANOOP ISAAC R [employer]ER onset unknown Urge Incontinence (ICD-9-CM :788.31 ) Name of Problem: Urge Incontinence ; Recorder: STEVE ANDREA; Confirmation: Confirmed ; Classification: Medical ; Code: 788.31 ; Contributor System: PowerChart ; Last Updated: 02/20/2010 8:39 CDT ; Life Cycle Date: 02/20/2010 ; Life Cycle Status: Active ; Responsible Provider: STEVE ANDREA CNP; Vocabulary: ICD-9-CM ; Comments: 09/30/2013 11:46 - ANOOP QUEVEDO [employer] onset unknown Triage Vital Signs Assessed : [...] Ambulatory Track : Trauma Other Languages : Rwandan Treatments Prior to Arrival : None STEPHANIE [...] Notification Time : 11/18/2013 16:38 CDT LESLI SOTOMAYOR RN - 11/18/2013 16:35 CDT ERIN ERIN Level 1 : No ERIN Level 2 : No ERIN Level 3 : One LESLI SOTOMAYOR RN - 11/18/2013 16:35 CDT DCP GENERIC CODE Tracking Group : [facility] ED Tracking Acuity : 3 -Urgent [...] SOTOMAYOR RN - 11/18/2013 16:35 CDT Source: [employer] Document Id: [id number] CDT!16 documented in this encounter Miscellaneous Notes Miscellaneous - Lesli Sotomayor R.N. - 11/18/2013 5:17 PM CDT Valuables/Belongings Valuables/Belongings Entered On: 11/18/2013 17:17 CDT Performed On: 11/18/2013 17:17 CDT by LESLI SOTOMAYOR RN Valuables/Belongings Home Medication Disposition : None brought in with patient LESLI SOTOMAYOR RN - 11/18/2013 17:17 CDT Source: [employer] Document Id: [id number] CDT!3 Miscellaneous - Lesli Sotomayor R.N. - [...] Control : 7 Lynx Visit Level : 09888 Level 3 Treatments Prior to Arrival : None LESLI SOTOMAYOR RN - 11/18/2013 17:17 CDT Source: [facility] POWERCHART Document Id: [id number] CDT!17 documented in this encounter Plan of Treatment Not on filedocumented as of this encounter Visit Diagnoses Not on filedocumented in this encounter Additional Health Concerns Assessment Noted Time PHQ-9 Depression Total Score: 18 02/14/2013 9:53 AM CD T documented as of this encounter
--- OUTSIDE RECORDS SUMMARY | 2022-08-05 10:20 | XMS_ITS | Encounter Summary ---
:1960 Author Organization [facility] Address [address] [place] [address] Care Team Providers Name Role Phone Unavailable Primary Care Provider Unavailable Encounter Details Date Type Department Care Team Description 03/14/2014 Hospital Encounter [facility] Juan Sears, P. A.-C. Social History Tobacco [...]
--- OUTSIDE RECORDS SUMMARY | 2022-08-05 10:20 | XMS_ITS | Encounter Summary ---
:1960 Author Organization [facility] Address [address] [place] [address] Care Team Providers Name Role Phone Unavailable Primary Care Provider Unavailable Encounter Details Date Type Department Care Team Description 07/26/[address] [facility] [place] Marino Larios P.A.-C., P.A. [address] [place] [phone] (Wo rk) Social History Tobacco Use Types Packs/Day Years Used Date Smoking Tobacco: Never Assessed Sex Assigned at Date Recorded Not on file documented as of this encounter Last Filed Vital Signs Vital Sign Reading Time Taken Comments Blood Pressure 172/93 07/26/2013 11:50 AM INDUSTRIAL ORGANIZATION MANAGER Pulse 56 07/26/2013 11:01 AM INDUSTRIAL ORGANIZATION MANAGER Temperature - - Respiratory Rate 14 07/26/2013 11:01 AM INDUSTRIAL ORGANIZATION MANAGER Oxygen Saturation - - Inhaled Oxygen Concentration - - Weight 153 kg (337 lb 8.4 oz) 07/26/2013 11:01 AM INDUSTRIAL ORGANIZATION MANAGER Height 183 cm (6' 0.05) 07/26/2013 11:01 AM INDUSTRIAL ORGANIZATION MANAGER Body Mass Index 45.72 07/26/2013 11:01 AM INDUSTRIAL ORGANIZATION MANAGER documented in this encounter Progress Notes Dyan Larios - 07/26/2013 10:45 AM CST [id number] CHIEF COMPLAINT/REASON FOR VISIT This is a 53-year-old male seen today new to our clinic after having recently been fired from the [facility] and [place]. HISTORY OF PRESENT ILLNESS He states that he has been going through a program through the bariatric clinic in [place] to get set up for gastric bypass. He had a meeting with a dietitian and that is when the problem started. [place]estates that he did not get along with the dietitian in [place]. He does have one dietitian visit left of his 6 and he actually states that he has this scheduled in [place] and plans to follow up down there for that tomorrow. He also sees someone in behavioral health for something similar to the LEARN Program. This is in [place] most recently he has been having some [...] DYAN LARIOS On: 08/02/2013 09:44 AM Source: [facility] MHSDOLBEYNONRADSYS Document Id: [id number] STRIAL ORGANIZATION MANAGER documented in this encounter Miscellaneous Notes Miscellaneous - Dyan Larios - 07/26/2013 12:15 PM CST Ambulatory Patient Summary [address] [address] Visit Information Name: LAZ LUNA [facility] Number: [id number] Current Date: 07/26/2013 12:15:01 Physicians [...] appointment detail needed. Your Goals/Additional instructions: Source: [facility] POWERCHART Document Id: [id number] STRIAL ORGANIZATION MANAGER Miscellaneous - Dyan Larios - 07/26/2013 12:15 PM CST Ambulatory Depart Summary [address] [address] Visit Information Name: LAZ LUNA [facility] Number: [id number] Visit Date: 07/26/2013 12:15:00 Attending [...] your provider for clarification. Additional Information: Source: [facility] Citelighter Document Id: [id number] STRIAL ORGANIZATION MANAGER Lulycellwalter - Tali Torres L.P.N. - 07/26/2013 11:50 AM CST Ambulatory Vitals Height Weight Ambulatory Vitals Height Weight Entered On: 07/26/2013 11:51 INDUSTRIAL ORGANIZATION MANAGER Performed On: 07/26/2013 11:50 INDUSTRIAL ORGANIZATION MANAGER by TALI TORRES Vitals/Ht/Wt Systolic Blood Pressure : 172 mmHg (>HHI) Diastolic Blood Pressure : 93 mmHg (>HHI) NIBP Mean : 119 mmHg BP Location : Right upper extremity Blood Pressure Cuff Size : Large TALI TORRES - 07/26/2013 11:50 INDUSTRIAL ORGANIZATION MANAGER Source: [facility] [employer] Document Id: [id number] INDUSTRIAL ORGANIZATION MANAGER!7 STRIAL ORGANIZATION MANAGER Lulycellwalter - Tali Torres L.P.N. - 07/26/2013 11:01 AM CST Adult Records Associate Intake/History Adult Records Associate Intake/History Entered On: 07/26/2013 11:07 INDUSTRIAL ORGANIZATION MANAGER Performed On: 07/26/2013 11:01 INDUSTRIAL ORGANIZATION MANAGER by TALI TORRES Intake Chief Complaint : [...] 45.72 kg/m2 TALI TORRES - 07/26/2013 11:01 INDUSTRIAL ORGANIZATION MANAGER General Info Information Given By : Patient Languages : Syriac TALI TORRES - 07/26/2013 11:01 INDUSTRIAL ORGANIZATION MANAGER Subjective Pain Symptoms : No TALI TORRES - 07/26/2013 11:01 INDUSTRIAL ORGANIZATION MANAGER Dependent Habits Tobacco Use/Currently Using : No Smoking Status : Never smoker Alcohol Use : No TALI TORRES - 07/26/2013 11:01 INDUSTRIAL ORGANIZATION MANAGER Source: [employer] Document Id: [id number] INDUSTRIAL ORGANIZATION MANAGER!27 STRIAL ORGANIZATION MANAGER documented in this encounter Plan of Treatment Not on filedocumented as of this encounter Visit Diagnoses Not on filedocumented in this encounter Additional Health Concerns Assessment Noted Time PHQ-9 Depression Total Score: 18 02/14/2013 9:53 AM CD T documented as of this encounter
--- OUTSIDE RECORDS SUMMARY | 2022-08-05 10:20 | XMS_ITS | Encounter Summary ---
:1960 Author Organization [facility] Address [address] [place] [address] Care Team Providers Name Role Phone Unavailable Primary Care Provider Unavailable Encounter Details Date Type Department Care Team Description 10/18/2013 Hospital Encounter HX [facility] Cintia Aguirre M.D. [address] [place] [phone] (Wo rk) Social History Tobacco Use Types Packs/Day Years Used Date Smoking Tobacco: Never Assessed Sex Assigned at Date Recorded Not on file documented as of this encounter Miscellaneous Notes Miscellaneous - Cintia Cobb M.D. - 10/18/2013 3:37 PM HOSTEL MANAGER US results Document Contains Addenda Addendum by JOSIE CASTANEDA LPN, RT on 20 October 2013 15:48:07 HOSTEL MANAGER Message left with to have patient call clinic. DL Addendum by JOSIE CASTANEDA LPN, RT on 19 October 2013 12:04:01 HOSTEL MANAGER no answer/no machine. DL From: CINTIA KILGORE MD To: JOSIE CASTANEDA LPN RT; Sent: 10/18/2013 15:37:21 HOSTEL MANAGER Subject: US results Please let Ed know that his kidney ultrasound looked okay. They did not see any narrowing of his arteries. We will follow up on his BP as discussed. Thanks, Cintia Source: [facility] POWERCHART Document Id: [id number] documented in this encounter Plan of Treatment Not on filedocumented as of this encounter Visit Diagnoses Not on filedocumented in this encounter Additional Health Concerns Assessment Noted Time PHQ-9 Depression Total Score: 18 02/14/2013 9:53 AM CD T documented as of this encounter
--- OUTSIDE RECORDS SUMMARY | 2022-08-05 10:20 | XMS_ITS | Encounter Summary ---
:1960 Author Organization [facility] Address [address] [place] [address] Care Team Providers Name Role Phone Unavailable Primary Care Provider Unavailable Encounter Details Date Type Department Care Team Description 11/04/2013 Hospital Encounter HX [facility] [place] Cintia Aguirre M.D. [address] [place] [phone] (Wo rk) Social History Tobacco Use Types Packs/Day Years Used Date Smoking Tobacco: Never Assessed Sex Assigned at Date Recorded Not on file documented as of this encounter Last Filed Vital Signs Vital Sign Reading Time Taken Comments Blood Pressure 131/68 11/04/2013 1:48 PM [employer] Pulse 62 11/04/2013 11:23 AM [employer] Temperature - - Respiratory Rate 16 11/04/2013 11:23 AM [employer] Oxygen Saturation - - Inhaled Oxygen Concentration - - Weight 152 kg (335 lb 1.6 oz) 11/04/2013 11:23 AM [employer] Height - - Body Mass Index 46.04 10/26/2013 10:12 AM [employer] documented in this encounter Progress Notes Cintia Cobb M.D. - 11/04/2013 11:06 AM CST [id number] CHIEF COMPLAINT/REASON FOR VISIT Followup blood pressure. [...] blood sugars, his morning readings have been [id number] to 170 since we increased his Lantus. [...] KILGORE MD On: 11/15/2013 10:17 PM Source: [facility] MHSDOLBEYNONRADSYS Document Id: [id number] documented in this encounter Miscellaneous Notes Miscellaneous - Harvey Packer L.P.N. - 11/04/2013 1:48 PM CST Quality Measures Quality Measures Entered On: 11/04/2013 13:48 [employer] Performed On: 11/04/2013 13:48 [employer] by HARVEY PACKER LPN BP/Tobacco/Misc Systolic Blood Pressure : 131 mmHg Diastolic Blood Pressure : 68 mmHg HARVEY PACKER LPN - 11/04/2013 13:48 [employer] Source: [facility] POWERCHART Document Id: [id number] [employer]!4 [employer] Miscellaneous - Cintia Cobb M.D. - 11/04/2013 11:49 AM [employer] Ambulatory Patient Summary [address] [id number] Visit Information Name: LAZ LUNA [facility] Number: [id number] Current Date: 11/04/2013 11:49:57 Physicians [...] appointment detail needed. Your Goals/Additional instructions: Source: [facility] POWERCHART Document Id: [id number] [employer] Miscellaneous - Cintia Cobb M.D. - 11/04/2013 11:49 AM [employer] Ambulatory Discharge Medication List [address] [id number] Visit Information Name: LUNALAZ [facility] Number: [id number] Visit Date: 11/04/2013 11:49:53 Attending [...] in case of emergency. Additional Information: Source: [facility] POWERCHART Document Id: [id number] [employer] Osbaldo - Anne Marie Tuttle LPiliP.N. - 11/04/2013 11:27 AM CST Ambulatory Vitals Height Weight Ambulatory Vitals Height Weight Entered On: 11/04/2013 11:28 [employer] Performed On: 11/04/2013 11:27 [employer] by ANNE MARIE TUTTLE LPN, RT Vitals/Ht/Wt Systolic Blood Pressure : 131 mmHg Diastolic Blood Pressure : 68 mmHg NIBP Mean : 89 mmHg BP Location : Right upper extremity Blood Pressure Cuff Size : Large ANNE MARIE TUTTLE LPN, - 11/04/2013 11:27 [employer] Source: [facility] OrthoScanCHART Document Id: [id number] [employer] Anne Marie Dasilva L.P.N. - 11/04/2013 11:23 AM CST Adult Milieu Counselor Intake/History Adult Milieu Counselor Intake/History Entered On: 11/04/2013 11:26 [employer] Performed On: 11/04/2013 11:23 [employer] by ANNE MARIE TUTTLE LPN, RT Intake [...] MARIE TUTTLE LPN, RT - 11/04/2013 11:23 [employer] General Info Information Given By : Patient Preferred Communication Mode : Verbal Languages : Lao ANNE MARIE TUTTLE LPN, RT - 11/04/2013 11:23 [employer] Subjective Pain Symptoms : No ANNE MARIE TUTTLE LPN, RT - 11/04/2013 11:23 [employer] Dependent Habits Tobacco Use/Currently Using : No Smoking Status : Never smoker ANNE MARIE TUTTLE LPN, RT - 11/04/2013 11:23 [employer] Tobacco Use Grid Last Use : never ANNE MARIE TUTTLE LPN, RT - 11/04/2013 11:23 [employer] Caffeine Use Grid Caffeine Use : Current Type : Coffee, Soft drinks Frequency : Weekly Amount : soda- weekly; coffee- 1x/week ANNE MARIE TUTTLE LPN, RT - 11/04/2013 11:23 [employer] Recreational Drug Use Grid Drug Use : None ANNE MARIE TUTTLE LPN, RT - 11/04/2013 11:23 [employer] Source: [facility] POWERCHART Document Id: [id number] [employer]!37 [employer] documented in this encounter Plan of Treatment Not on filedocumented as of this encounter Visit Diagnoses Not on filedocumented in this encounter Additional Health Concerns Assessment Noted Time PHQ-9 Depression Total Score: 18 02/14/2013 9:53 AM CD T documented as of this encounter
--- OUTSIDE RECORDS SUMMARY | 2022-08-05 10:20 | XMS_ITS | Encounter Summary ---
:1960 Author Organization [facility] Address [address] [place] [address] Care Team Providers Name Role Phone Unavailable Primary Care Provider Unavailable Encounter Details Date Type Department Care Team Description 05/03/[address] [facility] [place] Cintia Aguirre M.D. [address] [place] [phone] (Wo rk) Social History Tobacco Use [...] Cobb M.D. - 05/03/2014 6:06 PM CDT [id number] CHIEF COMPLAINT/REASON FOR VISIT Follow up blood [...] to auscultation bilaterally. 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 - 05/11/2014 2:16 PM CDT Normal Results Letter 11 May 2014 LAZ LUNA [address] [place] [id number] Dear ED CARLYLE, Your A1c has gone [...] 7.65 10/18/2013 - <=5.6 Sincerely, CINTIA KILGORE [address] [address] Electronic Signature Electronically Signed By: CINTIA KILGORE MD On: 11 May 2014 This document has images extracted. Source: [facility] NextSpace Document Id: [id number] Electronically signed by Dayami [facility] Casino Surveillance Officer [id number] at 02/03/2017 6:55 PM CDT Lulycellaneous - Cintia Cobb M.D. - 05/05/2014 [...] rechecked in 3 months. Cintia Segura Source: [facility] [employer]ART Document Id: [id number] Electronically signed by Dayami, [facility] Casino Surveillance Officer [id number] at 02/03/2017 6:55 PM CDT Miscellaneous - Cintia Cobb M.D. - 05/03/2014 6:49 PM CDT Ambulatory Patient Summary [address] [id number] Visit Information Name: CARLYLE LAZ [facility] Number: [id number] Current Date: 05/03/2014 18:49:04 [...] hypertension This is a CHANGE Routed to [address] [address] docusate-senna (Dok Plus) 2 Tablet(s), Oral, once a day furosemide (Lasix 20 mg oral tablet) See Instructions 1 tab(s) PO in morning and 2 tab in evening Routed to [address] [address] hydrochlorothiazide (hydrochlorothiazide 25 mg oral [...] appointment detail needed. Your Goals/Additional instructions: Source: [facility] POWERCHART Document Id: [id number] Miscellaneous - Cintia Cobb M.D. - 05/03/2014 6:49 PM CDT Ambulatory Discharge Medication List [address] [place] [id number] Visit Information Name: LAZ LUNA [facility] Number: [id number] Visit Date: 05/03/2014 18:49:02 [...] hypertension This is a CHANGE Routed to [address] [address] docusate-senna (Dok Plus) 2 Tablet(s), Oral, once a day furosemide (Lasix 20 mg oral tablet) See Instructions 1 tab(s) PO in morning and 2 tab in evening Routed to [address] [address] hydrochlorothiazide (hydrochlorothiazide 25 mg oral [...] MD Signed On:03-MAY-2014 18:48:42 Additional Information: Source: [facility] [employer]Space Document Id: [id number] Miscellwalter - Anne Marie Tuttle L.P.N. - [...] LPN, RT - 05/03/2014 18:24 CDT [facility] Document Id: [id number] CDT!8 Lulycellaneous - Anne Marie Tuttle LPiliP.N. - 05/03/2014 6:08 PM CDT Adult Immigration Case Manager Intake/History Adult Immigration Case Manager Intake/History Entered On: 05/03/2014 18:12 CDT Performed [...] LPN, RT - 05/03/2014 18:08 CDT Source: [facility] POWERCHART Document Id: [id number] CDT!38 documented in this encounter Plan of [...]
--- OUTSIDE RECORDS SUMMARY | 2022-08-05 10:20 | XMS_ITS | Encounter Summary ---
:1960 Author Organization [facility] Address [address] [place] [address] Care Team Providers Name Role Phone Unavailable Primary Care Provider Unavailable Encounter Details Date Type Department Care Team Description 10/18/2013 Hospital Encounter HX [facility] [place] Cintia Aguirre M.D. [address] [place] [phone] (Wo rk) Social History Tobacco Use Types Packs/Day Years Used Date Smoking Tobacco: Never Assessed Sex Assigned at Date Recorded Not on file documented as of this encounter Last Filed Vital Signs Vital Sign Reading Time Taken Comments Blood Pressure 159/98 10/18/2013 10:56 AM [employer] Pulse 54 10/18/2013 10:41 AM COLDFUS[employer] Temperature - - Respiratory Rate 16 10/18/2013 10:41 AM [employer] Oxygen Saturation - - Inhaled Oxygen Concentration - - Weight 155 kg (342 lb 9.5 oz) 10/18/2013 10:41 AM [employer] Height - - Body Mass Index 46.4 09/30/2013 11:38 AM [employer] documented in this encounter Progress Notes Cintia Cobb M.D. - 10/18/2013 10:37 AM CST [id number] CHIEF COMPLAINT/REASON FOR VISIT Followup blood pressure [...] KILGORE MD On: 10/26/2013 04:23 PM Source: [facility] MHSDOLBEYNONRADSYS Document Id: [id number] FUSION documented in this encounter Miscellaneous Notes Osbaldo - Cintia Cobb M.D. - 10/18/2013 10:50 PM COLDFUSION Quality Measures Quality Measures Entered On: 10/18/2013 22:51 COLDFUSION Performed On: 10/18/2013 22:50 COLDFUSION by CINTIA KILGORE MD Diabetes Date of Last Foot Exam : 10/18/2013 COLDFUSION CINTIA KILGORE MD - 10/18/2013 22:50 COLDFUSION Source: [facility] POWERCHART Document Id: [id number] COLDFUSION!3 FUSION Lulycellaneous - Cintia Cobb M.D. - 10/18/2013 11:29 AM COLDFUSION Ambulatory Patient Summary [address] [place] [address] Visit Information Name: LAZ LUNA [facility] Number: [id number] Current Date: 10/18/2013 11:29:55 Physicians [...] Oral, once a day New Routed to [address] [address] docusate-senna (Dok Plus) 2 Tablet(s), [...] appointment detail needed. Your Goals/Additional instructions: Source: [facility] POWERCHART Document Id: [id number] FUSION Miscellaneous - Cintia Cobb M.D. - 10/18/2013 11:29 AM COLDFUSION Ambulatory Depart Summary [address] [id number] Visit Information Name: LAZ LUNA [facility] Number: [id number] Visit Date: 10/18/2013 11:29:49 Attending [...] Oral, once a day New Routed to [address] [address] docusate-senna (Dok Plus) 2 Tablet(s), Oral, once [...] in case of emergency. Additional Information: Source: [facility] POWERCHART Document Id: [id number] Anne Marie Hensley L.P.N. - 10/18/2013 11:00 AM CST Quality Measures Quality Measures Entered On: 10/18/2013 11:00 COLDFUSION Performed On: 10/18/2013 11:00 COLDFUSION by ANNE MARIE TUTTLE LPN, RT Diabetes Date of Last Eye Exam : 09/07/2013 COLDFUSION ANNE MARIE TUTTLE LPN, RT - 10/18/2013 11:00 COLDFUSION Source: [employer] Document Id: [id number] COLDFUSION!3 FUSION Anne Marie Dasilva L.P.NPili - 10/18/2013 10:56 AM CST Ambulatory Vitals Height Weight Ambulatory Vitals Height Weight Entered On: 10/18/2013 10:56 COLDFUSION Performed On: 10/18/2013 10:56 COLDFUSION by ANNE MARIE TUTTLE LPN, RT Vitals/Ht/Wt Systolic Blood Pressure : 159 mmHg (HI) Diastolic Blood Pressure : 98 mmHg (>HHI) NIBP Mean : 118 mmHg BP Location : Right upper extremity Blood Pressure Cuff Size : Large ANNE MARIE TUTTLE LPN, RT - 10/18/2013 10:56 COLDFUSION Source: [employer] Document Id: [id number] COLDFUSION!7 FUSION Osbaldo - Anne Marie Tuttle L.P.NPili - 10/18/2013 10:52 AM CST Quality Measures Quality Measures Entered On: 10/18/2013 10:53 COLDFUSION Performed On: 10/18/2013 10:52 COLDFUSION by ANNE MARIE TUTTLE LPN, RT Diabetes Date of Last Foot Exam : 10/18/2013 COLDFUSION ANNE MARIE TUTTLE LPN, RT - 10/18/2013 10:52 COLDFUSION Source: [employer] Document Id: [id number] COLDFUSION!3 FUSION Miscellaneous - Anne Marie Tuttle L.P.N. - 10/18/2013 10:41 AM CST Adult Manager Front Office Intake/History Adult Manager Front Office Intake/History Entered On: 10/18/2013 10:46 COLDFUSION Performed On: 10/18/2013 10:41 COLDFUSION by ANNE MARIE TUTTLE LPN, RT Intake [...] MARIE TUTTLE LPN, RT - 10/18/2013 10:41 COLDFUSION General Info Information Given By : Patient Preferred Communication Mode : Verbal Languages : Uruguayan ANNE MARIE TUTTLE LPN, RT - 10/18/2013 10:41 COLDFUSION Subjective Pain Symptoms : No ANNE MARIE TUTTLE LPN, RT - 10/18/2013 10:41 COLDFUSION Dependent Habits Tobacco Use/Currently Using : No Smoking Status : Never smoker ANNE MARIE TUTTLE LPN, RT - 10/18/2013 10:41 COLDFUSION Tobacco Use Grid Last Use : never ANNE MARIE TUTTLE LPN, RT - 10/18/2013 10:41 COLDFUSION Caffeine Use Grid Caffeine Use : Current Type : Coffee, Soft drinks Frequency : Weekly Amount : soda- weekly; coffee- 1x/week ANNE MARIE TUTTLE LPN, RT - 10/18/2013 10:41 COLDFUSION Recreational Drug Use Grid Drug Use : None ANNE MARIE TUTTLE LPN, RT - 10/18/2013 10:41 COLDFUSION Source: [facility] POWERCHART Document Id: [id number] COLDFUSION!38 FUSION documented in this encounter Plan of Treatment Not on filedocumented as of this encounter Visit Diagnoses Not on filedocumented in this encounter Additional Health Concerns Assessment Noted Time PHQ-9 Depression Total Score: 18 02/14/2013 9:53 AM CD T documented as of this encounter
--- OUTSIDE RECORDS SUMMARY | 2022-08-05 10:20 | XMS_ITS | Encounter Summary ---
:1960 Author Organization [facility] Address [address] [place] [address] Care Team Providers Name Role Phone Unavailable [...] Suzi Hill - 02/07/2014 3:05 PM CDT [id number] Mr. Luna is a pleasant 53-year-old gentleman [...] have good motion both actively and passively. [place]'s test is equivocal. He does have painwhen [...] half that time was spent in direct pjsl-wv-uhdj counseling and educating the patient about his condition as well as treatment options that are available to him. Suzi Hill P.A.-C./caron Electronically Signed By: SUZI HILL PA-C On: 02/14/2014 02:48 PM Source: [facility] MHSDOLBEYNONRADSYS Document Id: [id number] documented in this encounter Miscellaneous Notes Miscellaneous - Suzi Hill - 02/07/2014 3:31 PM CDT Ambulatory Patient Summary [place] [facility] [address] [id number] Visit Information Name: LAZ LUNA [facility] Number: [id number] Current Date: 02/07/2014 15:31:20 Physicians [...] appointment detail needed. Your Goals/Additional instructions: Source: [facility] POWERCHART Document Id: [id number] Miscellaneous - Suzi Hill - 02/07/2014 3:31 PM CDT Ambulatory Discharge Medication List [facility] [address] [place], [place] [phone] Visit Information Name: LAZ LUNA [facility] Number: [id number] Visit Date: 02/07/2014 15:31:18 Attending [...] PA-C Signed On:07-FEB-2014 15:31:09 Additional Information: Source: [facility] POWERCHART Document Id: [id number] Miscellaneous - Lacie Donaldson R.N. - 02/07/2014 3:09 PM CDT Adult Medical Center Director Intake/History Adult Medical Center Director Intake/History Entered On: 02/07/2014 15:13 CDT Performed On: 02/07/2014 15:09 CDT by LACIE DONALDSON [employer] attendant Chief Complaint : f/u right shoulder pain, [...] Preferred Communication Mode : Verbal Languages : French LACIE DONALDSON RN - 02/07/2014 15:09 CDT [...] DONALDSON RN - 02/07/2014 15:09 CDT Source: [employer] Document Id: [id number] CDT!39 documented in this encounter Plan of Treatment Not on filedocumented as of this encounter Visit Diagnoses Not on filedocumented in this encounter Additional Health Concerns Assessment Noted Time PHQ-9 Depression Total Score: 18 02/14/2013 9:53 AM CD T documented as of this encounter
--- OUTSIDE RECORDS SUMMARY | 2022-08-05 10:20 | XMS_ITS | Encounter Summary ---
:1960 Author Organization [facility] Address [address] [place] [address] Care Team Providers Name Role Phone Unavailable Primary Care Provider Unavailable Encounter Details Date Type Department Care Team Description 03/21/2014 Hospital Encounter HX NO MAPPING Rocio Norman M.D. [address] [place] [address] [phone] (Wo rk) Social History Tobacco [...] Norman M.D. - 03/21/2014 3:25 PM CDT [id number] HISTORY OF PRESENT ILLNESS Ed is a [...] NORMAN MD On: 03/22/2014 07:43 AM Source: [facility] MHSDOLBEYNONRADSYS Document Id: [id number] documented in this encounter Miscellaneous Notes Miscellaneous - John Norman M.D. - 03/21/2014 4:07 PM CDT Ambulatory Patient Summary [facility] [address] [phone] Visit Information Name: LAZ LUNA [facility] Number: [id number] Current Date: 03/21/2014 16:07:21 Physicians [...] appointment detail needed. Your Goals/Additional instructions: Source: [facility] POWERCHART Document Id: [id number] Miscellaneous - John Norman M.D. - 03/21/2014 4:07 PM CDT Ambulatory Discharge Medication List [place] - [facility] [address] [phone] Visit Information Name: LUNALAZ [facility] Number: [id number] Visit Date: 03/21/2014 16:07:18 Attending [...] MD Signed On:21-MAR-2014 16:07:07 Additional Information: Source: [facility] POWERCHART Document Id: [id number] Miscellaneous - Lacie Donaldson R.N. - 03/21/2014 3:31 PM CDT Adult Us Administrative Law Judge Intake/History Adult Us Administrative Law Judge Intake/History Entered On: 03/21/2014 15:34 CDT Performed On: 03/21/2014 15:31 CDT by LACIE DONALDSON cnc mill set up operator Chief Complaint : f/u right shoulder pain [...] Preferred Communication Mode : Verbal Languages : Niuean LACIE DONALDSON RN - 03/21/2014 15:31 CDT [...] DONALDSON RN - 03/21/2014 15:31 CDT Source: [facility] POWERCHART Document Id: [id number] CDT!39 documented in this encounter Plan of Treatment Not on filedocumented as of this encounter Visit Diagnoses Not on filedocumented in this encounter Additional Health Concerns Assessment Noted Time PHQ-9 Depression Total Score: 18 02/14/2013 9:53 AM CD T documented as of this encounter
--- OUTSIDE RECORDS SUMMARY | 2022-08-05 10:20 | XMS_ITS | Encounter Summary ---
:1960 Author Organization [facility] Address [address] [place] [address] Care Team Providers Name Role Phone Unavailable Primary Care Provider Unavailable Encounter Details Date Type Department Care Team Description 12/15/2013 Hospital Encounter [facility] Song Cintia Jorgensen M.D. [address] [place] [phone] (wo rk) Social History Tobacco Use Types [...] this encounter Miscellaneous Notes Miscellaneous - Cintia Cbob M.D. - 12/15/2013 7:18 PM CDT Ambulatory Patient Summary [phone] [place], [place] [phone] Visit Information Name: LAZ LUNA [facility] Number: [id number] Current Date: 12/15/2013 19:18:44 Physicians [...] Date Time Location Reason Provider 12/19/2013 17:00 [facility] PT/OT rt shoulder impingment Rahel Donaldson 12/21/2013 18:00 [facility] PT/OT rt shoulder impingment Ade Gandhi 01/17/2014 15:30 [facility] Follow up Shoulder Ester MENDEZ, John Lindsay Attention: Contact your local Clinic if further appointment detail needed. Your Goals/Additional instructions: Source: [facility] POWERCHART Document Id: [id number] Miscellaneous - Cintia Cobb M.D. - 12/15/2013 7:18 PM CDT Ambulatory Discharge Medication List [address] [place], [place] [phone] Visit Information Name: LAZ LUNA [facility] Number: [id number] Visit Date: 12/15/2013 19:18:42 Attending [...] MD Signed On:15-DEC-2013 19:18:26 Additional Information: Source: [facility] [employer] Document Id: [id number] Osbaldo - Anne Marie Tuttle L.P.N. - [...] LPN, RT - 12/15/2013 17:38 CDT Source: [facility] [employer] Document Id: [id number] CDT!7 Anne Marie Dasilva L.P.N. - 12/15/2013 5:28 PM CDT Adult Linen Grader Intake/History Adult Linen Grader Intake/History Entered On: 12/15/2013 17:34 CDT Performed [...] Information Given By : Patient Languages : Barbadian ANNE MARIE TUTTLE LPN, RT - 12/15/2013 [...] LPN, RT - 12/15/2013 17:28 CDT Source: [employer] Document Id: [id number] CDT!41 documented in this encounter Plan of [...] X109L Erythrocytes 4.93 4.32 - 5.72 POWERCHART X7551V Hemoglobin 15.0 13.5 - 17.5 POWERCHART GDL [...] POWERCHART MMOLL HXeGFR (MDRD) >60 >=60 POWERCHART [id number] eGFR >60 >=60 POWERCHART Black/ [id number] Maltese Specimen (Source) Anatomical Collection Method Collection Time [...]
--- OUTSIDE RECORDS SUMMARY | 2022-08-05 10:21 | XMS_ITS | Encounter Summary ---
:1960 Author Organization [facility] Address [address] [place] [address] Care Team Providers Name Role Phone Unavailable [...]
--- OUTSIDE RECORDS SUMMARY | 2022-08-05 10:21 | XMS_ITS | Encounter Summary ---
:1960 Author Organization [facility] Address [address] [place] [address] Care Team Providers Name Role Phone Unavailable Primary Care Provider Unavailable Encounter Details Date Type Department Care Team Description 07/04/2013 Hospital Encounter HX [facility] INTERNMED Aranza Ramirez PPiliAPili-Kelvin [address] [place] [phone] (Wo rk) Social History Tobacco Use Types [...] Chhaya Ramirez - 07/04/2013 12:00 AM CDT [id number] CHIEF COMPLAINT/REASON FOR VISIT Medical Nutrition Therapy [...] OF GOALS: from 06/06/13: 1. Follow with [facility], regarding above goals. 2. [...] of Lantus insulin today. 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 TOBACCO USE: None. ALCOHOL USE: [...] CHHAYA ALLRED On: 07/06/2013 04:49 PM Source: [facility] MHSDOLBEYNONRADSYS Document Id: [id number] documented in this encounter Miscellaneous Notes Miscellaneous - Chhaya Ramirez - 07/04/2013 3:18 PM CDT Ambulatory Patient Summary [address] [address] Visit Information Name: LAZ LUNA [facility] Number: [id number] Current Date: 07/04/2013 15:18:34 Physicians Attending Provider: CHHAYA LALRED Primary Care Provider: STEVE MOY INTERNET SALESPERSON LAZ LUNA has been given the following [...] Time Location Reason Provider 07/11/2013 08:45 [facility] high blood pressure Steve Moy CNP 07/11/2013 09:15 [facility] Lab [facility] Lab 07/11/2013 09:15 [facility] Lab [facility] Lab Attention: Contact your local Clinic if further appointment detail needed. Your Goals/Additional instructions: Source: [facility] POWERCHART Document Id: [id number] Miscellaneous - Chhaya Ramirez - 07/04/2013 3:18 PM CDT Ambulatory Depart Summary [address] [address] Visit Information Name: CARLYLELAZ [facility] Number: [id number] Visit Date: 07/04/2013 15:18:33 Attending Provider: CHHAYA ALLRED Primary Care Provider: STEVE MOY INTERNET SALESPERSON LAZ LUNA has been given the following [...] your provider for clarification. Additional Information: Source: [facility] POWERCHART Document Id: [id number] Miscellaneous - Chhaya Ramirez - 07/04/2013 3:11 PM CDT Adult Metal Can Inspector Intake/History Adult Metal Can Inspector Intake/History Entered On: 07/04/2013 15:14 CDT Performed [...] Information Given By : Patient Languages : Luxembourger CHHAYA ALLRED - 07/04/2013 15:11 CDT Subjective [...] None CHHAYA ALLRED 07/04/2013 15:11 CDT Source: [employer] Document Id: [id number] CDT!29 documented in this encounter Plan of Treatment Not on filedocumented as of this encounter Visit Diagnoses Not on filedocumented in this encounter Additional Health Concerns Assessment Noted Time PHQ-9 Depression Total Score: 18 02/14/2013 9:53 AM CD T documented as of this encounter
--- OUTSIDE RECORDS SUMMARY | 2022-08-05 10:21 | XMS_ITS | Encounter Summary ---
:1960 Author Organization [facility] Address [address] [place] [address] Care Team Providers Name Role Phone Unavailable [...]
--- OUTSIDE RECORDS SUMMARY | 2022-08-05 10:21 | XMS_ITS | Encounter Summary ---
:1960 Author Organization [facility] Address [address] [place] [address] Care Team Providers Name Role Phone Unavailable [...]
--- OUTSIDE RECORDS SUMMARY | 2022-08-05 10:21 | XMS_ITS | Encounter Summary ---
:1960 Author Organization [facility] Address [address] [place] [address] Care Team Providers Name Role Phone Unavailable Primary Care Provider Unavailable Encounter Details Date Type Department Care Team Description 06/28/2013 Hospital Encounter HX [facility] Mehreen Perez M.S., R.N., A.C.N.S.-B.C. [address] [place] [phone] (Wo rk) Social History Tobacco Use [...]
--- OUTSIDE RECORDS SUMMARY | 2022-08-05 10:21 | XMS_ITS | Encounter Summary ---
:1960 Author Organization [facility] Address [address] [place] [address] Care Team Providers Name Role Phone Unavailable Primary Care Provider Unavailable Encounter Details Date Type Department Care Team Description 07/11/2013 Hospital Encounter HX [facility] Angélica Jolley M.D. [address] [place], [place] [phone] (Wo rk) Social History Tobacco Use Types Packs/Day Years Used Date Smoking Tobacco: Never Assessed Sex Assigned at Date Recorded Not on file documented as of this encounter Plan of Treatment Not on filedocumented as of this encounter Procedures Procedure Name Priority Date/Time Associated Diagnosis Comme nts HEMOGLOBIN A1C, B Routine 07/11/2013 9:41 AM Resu lts for this CORRECTIONAL COOK procedure are i n the results section. documented in this encounter Results (ABNORMAL) Hemoglobin A1c (07/11/2013 9:41 AM CORRECTIONAL COOK) athologist Signature Hemoglobin A1c, 8.0 (H) 4.0 - 6.0 POWERCHART B Specimen (Source) Anatomical Collection Method Collection Time Re ceived Time Location / / Volume Laterality Blood 07/11/2013 9:41 AM CORRECTIONAL COOK Renetta Jolley M.D. LAB BLOOD ADD-ON Performing Organization Address City/State/ZIP Code Phon e Number POWERCHART documented in this encounter Visit Diagnoses Not on filedocumented in this encounter Additional Health Concerns Assessment Noted Time PHQ-9 Depression Total Score: 18 02/14/2013 9:53 AM CD T documented as of this encounter
--- OUTSIDE RECORDS SUMMARY | 2022-08-05 10:21 | XMS_ITS | Encounter Summary ---
:1960 Author Organization [facility] Address [address] [place] [address] Care Team Providers Name Role Phone Unavailable Primary Care Provider Unavailable Encounter Details Date Type Department Care Team Description 2013 Hospital Encounter HX [facility] Steve Andrea, Soumya PRN, C.N.P. [address] [place], [place] [phone] (Wo rk) Social History Tobacco Use Types Packs/Day Years Used Date Smoking Tobacco: Never Assessed Sex Assigned at Date Recorded Not on file documented as of this encounter Miscellaneous Notes Miscellaneous - Steve Andrea, SURVEILLANCE OFFICER, C.N.P. - 06/23/2013 10:56 AM CDT Normal Results Letter 23 June 2013 ED CARLYLE [address] [facility] [address] [facility] [phone] Dear ED CARLYLE, I am pleased to report that your results from the following diagnostic test(s) are normal. Please follow up with us as we discussed during your visit or sooner if you have any concerns. If you have questions or concerns, please do not hesitate to call our office. Result Name Current Result Normal Range FIT/Fecal Occult Bld-Hallam Negative 2013 Negative - Sincerely, STEVE ANDREA [address] [place] [address] Electronic Signature Electronically Signed By: STEVE ANDREA CNP On: 23 June 2013 This document has images extracted. Source: [facility] POWERCHART Document Id: [id number] Electronically signed by Conversion, [facility] Casing Worker [id number] at 02/04/2017 2:42 AM CDT documented in [...] ordered if clinically indicated. Test Performed by: [place] [address] Infrastructure Manager: Benji roper III, M.D. Specimen (Source) Anatomical [...]
--- OUTSIDE RECORDS SUMMARY | 2022-08-05 10:21 | XMS_ITS | Encounter Summary ---
:1960 Author Organization [facility] Address [address] [place] [address] Care Team Providers Name Role Phone Unavailable Primary Care Provider Unavailable Encounter Details Date Type Department Care Team Description 07/11/2013 Hospital Encounter HX [facility] FAMILYPRA Bhumi Andrea, HAKEEM, C.N.P. [address] [place] [phone] (Wo rk) Social History Tobacco Use Types Packs/Day Years Used Date Smoking Tobacco: Never Assessed Sex Assigned at Date Recorded Not on file documented as of this encounter Last Filed Vital Signs Vital Sign Reading Time Taken Comments Blood Pressure 170/96 07/11/2013 9:22 AM PROSTHETIC TECHNICIAN Pulse 68 07/11/2013 8:56 AM PROSTHETIC TECHNICIAN Temperature - - Respiratory Rate 16 07/11/2013 8:56 AM PROSTHETIC TECHNICIAN Oxygen Saturation - - Inhaled Oxygen Concentration - - Weight 154 kg (338 lb 6.5 oz) 07/11/2013 8:56 AM PROSTHETIC TECHNICIAN Height - - Body Mass Index 46.49 07/04/2013 3:11 PM CDT documented in this encounter Progress Notes Steve Andrea APRN, C.N.P. - 07/11/2013 8:43 AM CST [id number] CHIEF COMPLAINT/REASON FOR VISIT 1. Hypertension. 2. Diabetes type 2 uncontrolled. HISTORY OF PRESENT ILLNESS 1. Ed states he has been monitoring his blood pressure. He has been seen at [facility] for dietetic counseling for [...] and results need to be sent to [place]. I explained to him that [place] can see his lab results in the [...] ANDREA CNP On: 07/12/2013 01:31 PM Source: [facility] MHSDOLBEYNONRADSYS Document Id: [id number] THETIC TECHNICIAN documented in this encounter Miscellaneous Notes Miscellaneous - Alysia Villafana R.N. - 07/19/2013 9:45 AM CST Medication Refill Msg Document Contains Addenda Addendum by ALYSIA VILLAFANA on 19 July 2013 11:47:50 PROSTHETIC TECHNICIAN done Addendum by STEVE ANDREA CNP on 19 July 2013 11:39:36 PROSTHETIC TECHNICIAN From: STEVE ANDREA CNP To: ALYSIA VILLAFANA; Sent: 07/19/2013 11:39:36 PROSTHETIC TECHNICIAN Subject: RE: Medication Refill Msg Yes, Ok to refill for 30 days from July 14, 2013. From: ALYSIA VILLAFANA To: STEVE ANDREA CNP; Sent: 07/19/2013 09:45:05 PROSTHETIC TECHNICIAN Subject: Medication Refill Msg Caller is: ( ) Patient ( ) Mother ( ) Father ( ) Spouse ( ) Daughter ( ) Son ( ) Pharmacy ( ) Other: Provider: Pharmacy: [facility] Name of Medications Needing Refill:can I fill metformin for this patient? Last Refill Date: Additional Information:see 07-15-13 phone message Last / Future Appointment:07-11-13 Disposition: ( ) Send to Pharmacy ( ) Call to Pharmacy ( ) Patient will supervisor picking crew Script ( ) Mail Rx to Patient Source: [facility] POWERCHART Document Id: [id number] Electronically signed by Dayami [facility] Home Appliance Technician [id number] at 02/04/2017 1:28 AM CDT Miscellaneous - Steve Andrea, HAKEEM, C.N.P. - 07/11/2013 2:11 PM CST Schedule Follow-Up Visit 11 July 2013 NOEMÍ LUNA [address] [place] [address] [address] [facility] [phone] Dear NOEMÍ LUNA, Thank you for choosing [facility] for your health care needs. You [...] (mL/min) >60 07/11/2013 Sincerely, STEVE ANDREA [address] [place] [address] Electronic Signature Electronically Signed By: STEVE ANDREA CNP On: 11 July 2013 This document has images extracted. Source: [facility] POWERCHART Document Id: [id number] Miscellaneous - Steve Andrea, HAKEEM, C.N.P. - 07/11/2013 9:27 AM CST Ambulatory Patient Summary [address] [facility] [place] [address] Visit Information Name: NOEMÍ LUNA [facility] Number: [id number] Current Date: 07/11/2013 09:27:48 [...] appointment detail needed. Your Goals/Additional instructions: Source: [facility] POWERCHART Document Id: [id number] THETIC TECHNICIAN Miscellaneous - Steve Andrea APRN, C.N.P. - 07/11/2013 9:27 AM CST Ambulatory Depart Summary [phone] [place] [address] Visit Information Name: CARLYLE NOEMÍ [facility] Number: [id number] Visit Date: 07/11/2013 09:27:47 [...] your provider for clarification. Additional Information: Source: [facility] [employer] Document Id: [id number] THETIC TECHNICIAN Miscellaneous - Setve Andrea APRN, C.N.P. - 07/11/2013 9:22 AM CST Ambulatory Vitals Height Weight Ambulatory Vitals Height Weight Entered On: 07/11/2013 9:22 PROSTHETIC TECHNICIAN Performed On: 07/11/2013 9:22 PROSTHETIC TECHNICIAN by STEVE ANDREA CNP Vitals/Ht/Wt Systolic Blood Pressure : 170 mmHg (>HHI) Diastolic Blood Pressure : 96 mmHg (>HHI) NIBP Mean : 121 mmHg STEVE ANDREA CNP - 07/11/2013 9:22 PROSTHETIC TECHNICIAN Source: [facility] [employer] Document Id: [id number] PROSTHETIC TECHNICIAN!5 THETIC TECHNICIAN Miscellaneous - Marcial Chavez L.P.NPili - 07/11/2013 8:56 AM CST Adult It Service Technician Intake/History Adult It Service Technician Intake/History Entered On: 07/11/2013 8:59 PROSTHETIC TECHNICIAN Performed On: 07/11/2013 8:56 PROSTHETIC TECHNICIAN by MARCIAL CHAVEZ Intake Chief Complaint : [...] 153.5 kg MARCIAL CHAVEZ - 07/11/2013 8:56 PROSTHETIC TECHNICIAN General Info Information Given By : Patient Languages : Armenian MARCIAL CHAVEZ - 07/11/2013 8:56 PROSTHETIC TECHNICIAN Subjective Pain Symptoms : No MARCIAL CHAVEZ - 07/11/2013 8:56 PROSTHETIC TECHNICIAN Dependent Habits Tobacco Use/Currently Using : No Smoking Status : Never smoker MARCIAL CHAVEZ - 07/11/2013 8:56 PROSTHETIC TECHNICIAN Tobacco Use Grid Last Use : non MARCIAL CHAVEZ - 07/11/2013 8:56 PROSTHETIC TECHNICIAN Caffeine Use Grid Caffeine Use : Current Type : Coffee, Soft drinks Frequency : Weekly Amount : soda- weekly; coffee- 1x/week MARCIAL CHAVEZ - 07/11/2013 8:56 PROSTHETIC TECHNICIAN Recreational Drug Use Grid Drug Use : None MARCIAL CHAVEZ - 07/11/2013 8:56 PROSTHETIC TECHNICIAN Source: [facility] POWERCHART Document Id: [id number] PROSTHETIC TECHNICIAN!31 THETIC TECHNICIAN documented in this encounter Plan of Treatment Not on filedocumented as of this encounter Procedures Procedure Name Priority Date/Time Associated Comments Diagnosis ALBUMIN, RANDOM, U Routine 07/11/2013 9:42 Result s for this AM PROSTHETIC TECHNICIAN procedure are i n the results section. ASPARTATE Routine 07/11/2013 9:41 Results for this AMINOTRANSFERASE (AST), AM PROSTHETIC TECHNICIAN proc edure are in S/P the results section. documented in this encounter Results (ABNORMAL) Microalbumin, Random, Urine (07/11/2013 9:42 AM PROSTHETIC TECHNICIAN) P athologist Signature HXU Albumin % 282 MGDL POWERCHART Creatinine, 126 MGDL POWERCHART Random, U Albumin/Creati 224 (H) 0 - 17 POWERCHART nine Ratio MGGM Specimen (Source) Anatomical Collection Method Collection Time Re ceived Time Location / / Volume Laterality Urine 07/11/2013 9:42 AM PROSTHETIC TECHNICIAN Kelvin Grier APRNNPiliPPili LAB URINE ORDERABLES Performing Organization Address City/State/ZIP Code Phon e Number POWERCHART AST (Aspartate Aminotransferase) (07/11/2013 9:41 AM PROSTHETIC TECHNICIAN) [facility] Method Time Signature Aspartate 20 8 - 48 POWERCHART Aminotransferase UNITL (AST), S Specimen (Source) Anatomical Collection Method Collection Time Re ceived Time Location / / Volume Laterality Blood 07/11/2013 9:41 AM PROSTHETIC TECHNICIAN Steve Andrea APRN C.N.P. LAB BLOOD ADD-ON Performing Organization Address City/State/ZIP Code Phon e Number POWERCHART documented in this encounter Visit Diagnoses Not on filedocumented in this encounter Additional Health Concerns Assessment Noted Time PHQ-9 Depression Total Score: 18 02/14/2013 9:53 AM CD T documented as of this encounter
--- OUTSIDE RECORDS SUMMARY | 2022-08-05 10:21 | XMS_ITS | Encounter Summary ---
:1960 Author Organization [facility] Address [address] [place] [address] Care Team Providers Name Role Phone Unavailable Primary Care Provider Unavailable Encounter Details Date Type Department Care Team Description 06/06/2013 Hospital Encounter HX [facility] INTERNMED Aranza Ramirez PPiliAPili-K[address]vin [address] [place] [phone] (Wo rk) Social History Tobacco Use Types [...] Chhaya Ramirez - 06/06/2013 12:00 AM CDT [id number] CHIEF COMPLAINT / REASON FOR VISIT Medical [...] sizes. He states he is working on [employer]. He drinks soda occasionally, but refuses to [...] EMR 06/06/2013. No changes. 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 TOBACCO USE: None. ALCOHOL USE: None. VITAL SIGNS HEIGHT: 181.7 cm. CURRENT BODY WEIGHT: 156.8 kg, body weight is up 2 kg since 05/02/2013. BMI: 47.49 kg/m IMPRESSION / REPORT / PLAN DIAGNOSTICS: Updated hemoglobin A1c was drawn on 06/01/2013 and is at 9%. IMPRESSION: Vsotx-qvvm-hudj-old male here for pre-gastric bypass surgery education session. Patient is taking gastric bypass classes in [employer]. These start sometime in June. He estimates [...] to discuss liquid intake and carbonation with [facility]. READINESS TO LEARN: Low interest. TEACHING METHOD USED: Verbal discussion. STAGE OF BEHAVIOR CHANGE: Pre-contemplation. EDUCATION OUTCOME: Verbalizes understanding. Patient selected behavioral objectives: 1) To follow up with [facility] regarding above goals. 2) [...] CHHAYA ALLRED On: 06/07/2013 11:44 AM Source: [facility] MHSDOLBEYNONRADSYS Document Id: [id number] documented in this encounter Miscellaneous Notes Miscellaneous - Chhaya Ramirez - 06/06/2013 9:11 AM CDT Ambulatory Patient Summary [facility] [address] [place] [address] Visit Information Name: LAZ LUNA [facility] Number: [id number] Current Date: 06/06/2013 09:11:25 Physicians Attending Provider: CHHAYA ALLRED Primary Care Provider: STEVE ANDREA PIECE GOODS CLERK Your Medications Here is a list of [...] No Appointments found Your Goals/Additional instructions: Source: [facility] POWERCHART Document Id: [id number] Miscellaneous - Chhaya Ramirez - 06/06/2013 9:11 AM CDT Ambulatory Depart Summary [facility] [address] [place] [address] Visit Information Name: LAZ LUNA [facility] Number: [id number] Visit Date: 06/06/2013 09:11:24 Attending Provider: CHHAYA ALLRED Primary Care Provider: STEVE ANDREA PIECE GOODS CLERK LAZ LUNA has been given the following [...] Additional Information: Source: [facility] POWERCHART Document Id: [id number] Miscellaneous - Chhaya Ramirez - 06/06/2013 9:02 AM CDT Adult Tailings Worker Intake/History Adult Tailings Worker Intake/History Entered On: 06/06/2013 9:04 CDT Performed [...] Information Given By : Patient Languages : South Sudanese CHHAYA ALLRED - 06/06/2013 9:02 CDT Subjective [...] CHHAYA ALLRED - 06/06/2013 9:02 CDT Source: [employer] Document Id: [id number] CDT!33 documented in this encounter Plan of Treatment Not on filedocumented as of this encounter Visit Diagnoses Not on filedocumented in this encounter Additional Health Concerns Assessment Noted Time PHQ-9 Depression Total Score: 18 02/14/2013 9:53 AM CD T documented as of this encounter
--- OUTSIDE RECORDS SUMMARY | 2022-08-05 10:21 | XMS_ITS | Encounter Summary ---
:1960 Author Organization [facility] Address [address] [place] [address] Care Team Providers Name Role Phone Unavailable Primary Care Provider Unavailable Encounter Details Date Type Department Care Team Description 06/01/2013 Hospital Encounter HX [facility] FB FAMILYPRA Rosangela Vieira M.D. [address] [facility], [address] [place], [place] [address] (Wo rk) Social History [...] Vieira M.D. - 06/01/2013 8:44 AM CDT [id number] CHIEF COMPLAINT/REASON FOR VISIT Genital warts. 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 - 06/01/2013 9:25 AM CDT Ambulatory Patient Summary [address] [facility] [place] [address] Visit Information Name: NOEMÍ LUNA [facility] Number: [id number] Current Date: 06/01/2013 09:25:12 Physicians Attending Provider: MARILUZ VIEIRA MD Primary Care Provider: STEVE ANDREA SUPERMARKET MANAGER Your Medications Here is a list [...] day to help prevent tinea pedis. Source: [facility] POWERCHART Document Id: [id number] Miscellaneous - Mariluz Vieira M.D. - 06/01/2013 9:25 AM CDT Ambulatory Depart Summary [place] [id number] [facility] [place] [address] Visit Information Name: NOEMÍ LUNA [facility] Number: [id number] Visit Date: 06/01/2013 09:25:11 Attending Provider: MARILUZ VIEIRA MD Primary Care Provider: STEVE ANDREA SUPERMARKET MANAGER NOEMÍ LUNA has been given the following [...] your provider for clarification. Additional Information: Source: [facility] POWERCHART Document Id: [id number] Miscellaneous - Ynes Dia L.P.N. - 06/01/2013 8:53 AM CDT Adult Agency Service Representative Intake/History Adult Agency Service Representative Intake/History Entered On: 06/01/2013 8:54 CDT Performed [...] Information Given By : Patient Languages : Anguillan YNES DIA - 06/01/2013 8:53 CDT Subjective [...] YNES DIA - 06/01/2013 8:53 CDT Source: [facility] POWERCHART Document Id: [id number] CDT!34 documented in this encounter Plan of Treatment Not on filedocumented as of this encounter Visit Diagnoses Not on filedocumented in this encounter Additional Health Concerns Assessment Noted Time PHQ-9 Depression Total Score: 18 02/14/2013 9:53 AM CD T documented as of this encounter
--- OUTSIDE RECORDS SUMMARY | 2022-08-05 10:21 | XMS_ITS | Encounter Summary ---
:1960 Author Organization [facility] Address [address] [place] [address] Care Team Providers Name Role Phone Unavailable Primary Care Provider Unavailable Encounter Details Date Type Department Care Team Description 07/11/2013 Hospital Encounter HX [facility] Cindy Moy, Soumya PRN, C.N.P. [address] [place], [place] [phone] (Wo rk) Social History Tobacco Use Types Packs/Day Years Used Date Smoking Tobacco: Never Assessed Sex Assigned at Date Recorded Not on file documented as of this encounter Plan of Treatment Not on filedocumented as of this encounter Procedures Procedure Name Priority Date/Time Associated Diagnosis Comme nts LIPID PANEL, S Routine 07/11/2013 9:41 AM Results for this [facility] procedure are i n the results section. BASIC METABOLIC Routine 07/11/2013 9:41 AM Result s for this PANEL, S/P [facility] [employer] [facility] procedure are i n the results section. documented in this encounter Results (ABNORMAL) BMP (Basic Metabolic Panel) (07/11/2013 9:41 AM [facility]) P athologist Signature BUN (Blood Urea 20 [...] / Volume Laterality Blood 07/11/2013 9:41 AM [facility] Cindy Moy APRN, C.N.P. LAB BLOOD ADD-ON Performing Organization Address City/State/ZIP Code Phon e Number POWERCHART Lipid Panel (07/11/2013 9:41 AM [facility]) [facility] Signature Cholesterol, Total 135 0 - 200 POWERCHART MGDL HX HDL 46.0 40.0 - POWERCHART 60.0 MGDL Triglycerides 145 0 - 150 POWERCHART MGDL Calculated LDL 60 0 - 100 POWERCHART MGDL Specimen (Source) Anatomical Collection Method Collection Time Re ceived Time Location / / Volume Laterality Blood 07/11/2013 9:41 AM [facility] Cindy Moy APRN, C.N.P. LAB BLOOD ADD-ON Performing Organization Address City/State/ZIP Code Phon e Number POWERCHART documented in this encounter Visit Diagnoses Not on filedocumented in this encounter Additional Health Concerns Assessment Noted Time PHQ-9 Depression Total Score: 18 02/14/2013 9:53 AM CD T documented as of this encounter
--- OUTSIDE RECORDS SUMMARY | 2022-08-05 10:21 | XMS_ITS | Encounter Summary ---
:1960 Author Organization [facility] Address [address] [place] [address] Care Team Providers Name Role Phone Unavailable Primary Care Provider Unavailable Encounter Details Date Type Department Care Team Description 05/02/[address] [facility] INTERNMED Aranza Ramirez PPiliAPili-Kelvin [address] [place] [phone] (Wo rk) Social History Tobacco Use Types [...] CDT documented in this encounter Nursing Notes Chhaay Ramirez - 05/02/2013 12:00 AM CDT [id number] CHIEF COMPLAINT / REASON FOR VISIT Medical [...] program. He states he sees someone in [place] tomorrow. He refuses to chew food to [...] dated 05/02/2013. No changes. 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 TOBACCO USE: None. ALCOHOL USE: None. VITAL [...] None. ADMINISTRATIVE BILLING Total Time: 15 minutes. Chhyaa Allred R.D., LLinda/claude Electronically Signed By: CHHAYA ALLRED On: 05/05/2013 10:38 AM Source: [facility] MHSDOLBEYNONRADSYS Document Id: [id number] documented in this encounter Miscellaneous Notes Miscellaneous - Chhaya Ramirez - 05/02/2013 8:38 AM CDT Ambulatory Patient Summary [facility] [address] [place] [address] Visit Information Name: LAZ LUNA [facility] Number: [id number] Current Date: 05/02/2013 08:38:46 Physicians Attending Provider: CHHAYA ALLRED Primary Care Provider: STEVE ANDREA RN MATERNITY Your Medications Here is a list of [...] instructions: Source: [email or web address] POWERCHART Document Id: [id number] Miscellaneous - Chhaya Ramirez - 05/02/2013 8:38 AM CDT Ambulatory Depart Summary [facility] [address] [place] [address] Visit Information Name: LAZ LUNA [facility] Number: [id number] Visit Date: 05/02/2013 08:38:45 Attending Provider: CHHAYA ALLRED Primary Care Provider: STEVE ANDREA RN MATERNITY LAZ LUNA has been given the following [...] Source: [facility] POWERCHART Document Id: [id number] Miscellaneous - Chhaya Ramirez - 05/02/2013 8:34 AM CDT Adult Drying Machine Receiver Intake/History Adult Drying Machine Receiver Intake/History Entered On: 05/02/2013 8:36 CDT Performed [...] Information Given By : Patient Languages : Gabonese CHALINO CHHAYA Fernandez 05/02/2013 8:34 CDT Subjective [...] None CHHAYA ALLRED 05/02/2013 8:34 CDT Source: [employer] Document Id: [id number] CDT!34 documented in this encounter Plan of Treatment Not on filedocumented as of this encounter Visit Diagnoses Not on filedocumented in this encounter Additional Health Concerns Assessment Noted Time PHQ-9 Depression Total Score: 18 02/14/2013 9:53 AM CD T documented as of this encounter
--- OUTSIDE RECORDS SUMMARY | 2022-08-05 10:21 | XMS_ITS | Encounter Summary ---
:1960 Author Organization [facility] Address [address] [place] [address] Care Team Providers Name Role Phone Unavailable Primary Care Provider Unavailable Encounter Details Date Type Department Care Team Description 06/01/2013 Hospital Encounter HX [facility] FBHB FAMILYPRA Bhumi Andrea, HAKEEM, C.N.P. [address] [place] [phone] (Wo rk) Social History Tobacco Use Types [...] APRN, C.N.P. - 06/01/2013 9:20 AM CDT [id number] CHIEF COMPLAINT/REASON FOR VISIT 1. Diabetes type 2, uncontrolled. 2. Hypertension. 3. Hyperlipidemia. 4. Urinary tract infection. 5. Benign prostatic hypertrophy. 6. Urge incontinence. HISTORY OF PRESENT ILLNESS Ed is here for recheck. 1. He has history of diabetes type 2, uncontrolled. He has been working with dietitian in [place]. He has discontinued glimepiride and is now on Victoza, along with 60 units of Lantus. He states he has missed a few doses of Lantus. 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 He states he has been working on weight loss and has lost a few pounds. He is hoping to undergo bariatric surgery. He has some classes he needs to attend in [place] andthen will be scheduling followup at [place] again. He is due for A1c today. [...] the dietitian and will be following with [place] in preparation for bariatric surgery. 2. Hypertension [...] ANDREA CNP On: 06/01/2013 03:13 PM Source: [facility] MHSDOLBEYNONRADSYS Document Id: [id number] documented in this encounter Miscellaneous Notes Miscellaneous - Hank Villafana L.P.NPili - 06/24/2013 10:21 AM CDT Colorectal cancer screening reminder Document Contains Addenda Addendum by MARY DIAZ LPN on 24 May 2014 15:50:32 CDT No longer a patient at [facility]. Addendum by MARCIAL CHAVEZ LPN on 24 [...] Patient ( ) ( ) Call for Station Cashier ( ) Follow up on Results ( ) Other: PROVIDER: ( ) Call Physician ( ) Call Pharmacist ( ) Call Lab ( ) Other: Special Instructions: Comments: [facility] Document Id: [id number] Electronically signed by Conversion, [facility] Property Handler [id number] at 02/04/2017 9:52 PM CDT Miscellaneous - Steve Andrea APRN, C.N.P. - 06/01/2013 10:36 AM CDT Schedule Follow-Up Visit 01 June 2013 ED CARLYLE [address] [place] [address] [place] [phone] Dear NOEMÍ LUNA, Thank you for choosing [facility] for your health care needs. You recently [...] - 6.0 Sincerely, STEVE ANDREA [address] [address] Electronic Signature Electronically Signed By: STEVE ANDREA CNP On: 01 June 2013 This document has images extracted. Source: [facility] Document Id: [id number] Electronically signed by Conversion, [facility] Property Handler [id number] at 02/04/2017 9:52 PM CDT Miscellaneous - Steve Andrea APRN, C.N.P. - 06/01/2013 10:03 AM CDT Ambulatory Patient Summary [address] [facility] [place] [address] Visit Information Name: NOEMÍ LUNA [facility] Number: [id number] Current Date: 06/01/2013 10:03:46 Physicians [...] Chhaya Campos RD Your Goals/Additional instructions: Source: [facility] POWERCHART Document Id: [id number] Miscellaneous - Steve Andrea APRN, C.N.P. - 06/01/2013 10:03 AM CDT Ambulatory Depart Summary [address] [address] Visit Information Name: CARLYLE NOEMÍ [facility] Number: [id number] Visit Date: 06/01/2013 10:03:45 Attending Provider: STEVE ANDREA CNP Primary Care Provider: STEVE ANDREA RESERVOIR ENGINEERING MANAGER NOEMÍ LUNA has been given the [...] your provider for clarification. Additional Information: Source: [facility] POWERCHART Document Id: [id number] Miscellaneous - Marcial Chavez, LPiliPPiliN. - 06/01/2013 9:29 AM CDT Adult Esthetic Dermatologist Intake/History Adult Esthetic Dermatologist Intake/History Entered On: 06/01/2013 9:31 CDT Performed [...] Information Given By : Patient Languages : Vincentian MARCIAL CHAVEZ - 06/01/2013 9:29 CDT Subjective [...] MARCIAL CHAVEZ - 06/01/2013 9:29 CDT Source: [employer] Document Id: [id number] CDT!29 Miscellaneous - Steve Andrea APRN, C.N.P. - 05/28/2013 10:10 AM CDT Quality Measures Quality Measures Entered On: 06/01/2013 10:10 CDT Performed On: 05/28/2013 10:10 CDT by STEVE ANDREA CNP Labs Outside Lab Creatinine (Serum) : 1.07 mg/dL Outside Lab Report Location : Scanned into EMR STEVE ANDREA CNP - 06/01/2013 10:10 CDT Source: [employer] Document Id: [id number] CDT!4 documented in this encounter Plan of [...] See POWERCHART scanned/paper report. Test performed at [facility]. Specimen (Source) Anatomical Collection Method Collection Time [...]
--- OUTSIDE RECORDS SUMMARY | 2022-08-05 10:22 | XMS_ITS | Encounter Summary ---
:1960 Author Organization [facility] Address [address] [place] [address] Care Team Providers Name Role Phone Unavailable Primary Care Provider Unavailable Encounter Details Date Type Department Care Team Description 05/01/2010 Hospital Encounter HX [facility] Steve Andrea, Soumya HERRERA, C.N.P. [address] [place], [place] [phone] (Wo rk) Social History Tobacco Use Types Packs/Day Years Used Date Smoking Tobacco: Never Assessed Sex Assigned at Date Recorded Not on file documented as of this encounter Progress Notes Steve Andrea, SUPERVISOR PRESSING DEPARTMENT, C.N.P. - 05/01/2010 12:00 AM CDT [id number] IMPRESSION/REPORT/PLAN Pyelonephritis resolving and diabetes type 2. Complete the doxycycline prescription. Creatinine is pending when results are back if creatinine is back down to normal I will call him to restart Metformin and will recheck in 1 month. CHIEF COMPLAINT/REASON FOR VISIT Recheck post hospitalization HISTORY OF PRESENT ILLNESS Ed is here for recheck. He was admitted to [facility] with pyelonephritis. He had kidney stone treated [...] no hepatosplenomegaly. SJM/clf Signed Steve Andrea, MSN, OB/GYN PHYSICIAN, CDE Family Nurse Practitioner Electronically Signed By:STEVE ANDREA CNP On 05/06/2010 11:37 AM Source: [facility] MHSDOLBEYNONRADSYS Document Id: [id number] documented in this encounter Plan of Treatment Not on filedocumented as of this encounter Visit Diagnoses Not on filedocumented in this encounter
--- OUTSIDE RECORDS SUMMARY | 2022-08-05 10:22 | XMS_ITS | Encounter Summary ---
:1960 Author Organization [facility] Address [address] [place] [address] Care Team Providers Name Role Phone Unavailable [...] José M.D. - 04/22/2010 12:00 AM CDT [id number] IMPRESSION/REPORT/PLAN 1. Status-post ureteroscopy for treatment of a proximal left ureteral stone. This is a uric acid stone. 2. Irritative voiding symptoms. Plan Patient will follow up with his primary urologist Dr. Conley at the [facility] for his irritative voiding symptoms. I would [...] Jose José M.D. Urology CC: [facility]. Electronically Signed By:JOES JOSÉ MD On 04/24/2010 03:38 PM Source: [facility] MHSDOLBEYNONRADSYS Document Id: [id number] documented in this encounter Miscellaneous Notes Miscellaneous - Panchito Mccracken, L.P.N. - 04/22/2010 10:58 AM CDT Adult Power Regulator Intake/History Adult Power Regulator Intake/History Entered On: 04/22/2010 10:59 CDT Performed [...] CNP; Reviewed Date: 04/22/2010 10:56 CDT Source: [facility] [employer] Document Id: [id number] CDT!22 documented in this encounter Plan of Treatment Not on filedocumented as of this encounter Visit Diagnoses Not on filedocumented in this encounter
--- OUTSIDE RECORDS SUMMARY | 2022-08-05 10:22 | XMS_ITS | Encounter Summary ---
:1960 Author Organization [facility] Address [address] [place] [address] Care Team Providers Name Role Phone Unavailable Primary Care Provider Unavailable Encounter Details Date Type Department Care Team Description 05/14/2010 Hospital Encounter HX [facility] FAMILYPRA Bhumi Andrea, HAKEEM, C.N.P. [address] [place] [phone] (Wo rk) Social History Tobacco Use Types Packs/Day Years Used Date Smoking Tobacco: Never Assessed Sex Assigned at Date Recorded Not on file documented as of this encounter Progress Notes Steve Andrea, HAKEEM, C.N.P. - 05/14/2010 12:00 AM CDT [id number] CHIEF COMPLAINT/REASON FOR VISIT 1. Contusion left lower leg 2. Diabetes type 2 HISTORY OF PRESENT ILLNESS 1. Ed states he [place] down the steps at the [employer] [place] on 05-09-10. He bruised his left [...] results. SJM/clf Signed Steve Fernandez. Farzaneh, MSN, ESCALATOR ATTENDANT, CDE Family Nurse Practitioner Electronically Signed By:STEVE ANDREA CNP On 05/14/2010 03:36 PM Source: [facility] MHSDOLBEYNONRADSYS Document Id: [id number] documented in this encounter Miscellaneous Notes Miscellaneous - Steve Andrea APRN, C.N.P. - 05/14/2010 10:43 AM CDT Ambulatory Depart Summary [address] [address] Visit Information Name: NOEMÍ LUNA Current Date: 05/14/2010 10:43:33 Primary Care Provider: STEVE ANDREA CNP [id number] NOEMÍ LUNA has been given the following [...] to the patient and/or family, guardian/caregiver. Source: [facility] POWERCHART Document Id: [id number] Electronically signed by Dayami, [facility] Undercollar Maker [id number] at 02/09/2017 12:48 AM CDT Miscellaneous - Conversion, Historical Provider Ser - 05/14/2010 9:32 AM CDT Adult Psychotherapist Social Worker Intake/History Adult Psychotherapist Social Worker Intake/History Entered On: 05/14/2010 9:33 CDT Performed On: 05/14/2010 9:32 CDT by BEBO PYLE LPN Intake Chief Complaint: fell at [employer] on 05/09/2010 complains of left knee and [...] Using: No Alcohol Use: No BEBO PYLE FLIGHT OPERATIONS COORDINATOR - 05/14/2010 9:32 CDT Caffeine Use Grid Caffeine Use: Current Type: Soft drinks Frequency: Occasionally BEBO PYLE MARÍA ELENA [facility] - 05/14/2010 9:32 CDT Recreational Drug Use Grid Drug Use: None BEBO PYLE FLIGHT OPERATIONS COORDINATOR - 05/14/2010 9:32 CDT Allergies Allergies (Active) Cipro Estimated Onset Date: Unspecified ; Created By: STEVE ANDREA CNP; Reaction Status: Active ;Category: Drug ; Substance: Cipro ; Type: Allergy ; Updated By: STEVE ANDREA CNP; Reviewed Date: 04/22/2010 10:56 CDT Source: [employer] Document Id: [id number] CDT!24 documented in this encounter Plan of [...]
--- OUTSIDE RECORDS SUMMARY | 2022-08-05 10:22 | XMS_ITS | Encounter Summary ---
:1960 Author Organization [facility] Address [address] [place] [address] Care Team Providers Name Role Phone Unavailable Primary Care Provider Unavailable Encounter Details Date Type Department Care Team Description 12/05/2010 Hospital Encounter HX [facility] FAMILYPRA Bhumi Andrea, HAKEEM, C.N.P. [address] [place] [phone] (Wo rk) Social History Tobacco Use Types Packs/Day Years Used Date Smoking Tobacco: Never Assessed Sex Assigned at Date Recorded Not on file documented as of this encounter Progress Notes Steve Andrea, HAKEEM, C.N.P. - 12/05/2010 12:00 AM CDT [id number] CHIEF COMPLAINT/ REASON FOR VISIT Diabetes type [...] 3 months SJM/clf Signed Steve Andrea, MSN, MARINA PORTER, CDE Family Nurse Practitioner Electronically Signed By: STEVE ANDREA CNP On: 12/07/2010 10:41 Source: [facility] MHSDOLBEYNONRADSYS Document Id: [id number] documented in this encounter Nursing Notes Steve Andrea APRN, C.N.P. - 12/05/2010 5:57 PM CDT Parimutuel Ticket Checker Intake (Adult) Parimutuel Ticket Checker Intake (Adult) Entered On: 12/05/2010 17:58 CDT [...] ANDREA CNP - 12/05/2010 17:57 CDT Source: [facility] 10-[employer] Media[employer] Document Id: [id number] CDT!36 documented in this encounter Miscellaneous Notes Miscellaneous - Steve Andrea APRN, C.N.P. - 12/05/2010 5:55 PM CDT Ambulatory Patient Summary [address] [address] Visit Information Name: LUNA, Current Date: 12/05/2010 17:55:55 Primary Care Provider: STEVE ANDREA [facility] Your Medications Here is a list [...] jannie Topical three times a day (apply sroaya thin film to the affected skin and [...] Date Time Location Reason Provider 12/30/2010 08:40 [facility] [place] Phil diabetes Daniela MENDEZ, Tye Fields Your Goals/Additional instructions: Source: [facility] POWERCHART Document Id: [id number] Electronically signed by Conversion, [facility] Amusement Equipment Operator [id number] at 02/08/2017 5:27 PM CDT Miscellaneous - Steve Andrea, HAKEEM, C.N.P. - 12/05/2010 5:55 PM CDT Ambulatory Depart Summary [address] [address] Visit Information Name: NOEMÍ LUNA Current Date: 12/05/2010 17:55:54 Primary Care Provider: STEVE ANDREA [facility] NOEMÍ LUNA has been given the [...] to the patient and/or family, guardian/caregiver. Source: [facility] POWERCHART Document Id: [id number] Miscellaneous - Steve Andrea APRN, C.N.P. - 12/05/2010 10:22 AM CDT Quality Measures Quality Measures Entered On: 12/05/2010 10:23 CDT Performed On: 12/05/2010 10:22 CDT by STEVE ANDREA CNP Diabetes Date of Last Foot Exam: 12/05/2010 CDT Date of Last Diabetes Education: 12/05/2010 CDT STEVE ANRDEA CNP - 12/05/2010 10:22 CDT Foot Exam Grid Left foot exam Right foot exam Dorsalis Pedis Pulse: Normal Normal Post Tibial Pulse: Normal Normal Capillary Refill: Less than 3 seconds Less than 3 seconds 10 gm Monofilament Sensation Check: Intact Intact STEVE ANDREA CNP - 12/05/2010 10:22 CDT STEVE ANDREA CNP - 12/05/2010 10:22 CDT Source: [facility] POWERCHART Document Id: [id number] CDT!15 Miscellaneous - Dayami, [facility] Provider Ser - 12/05/2010 10:07 AM CDT Ambulatory Vitals Height Weight Ambulatory Vitals Height Weight Entered On: 12/05/2010 10:08 CDT Performed On: 12/05/2010 10:07 CDT by JOSE WILLIAM Vitals/Ht/Wt Systolic Blood Pressure: 130mmHg Diastolic Blood Pressure: 80mmHg NIBP Mean: 97mmHg BP Location: Left upper extremity JOSE WILLIAM Feliz - 12/05/2010 10:07 CDT Source: [employer] Document Id: [id number] CDT!6 Miscellaneous - Conversion, Historical Provider Ser - 12/05/2010 10:05 AM CDT Adult Foot Gatherer Intake/History Adult Foot Gatherer Intake/History Entered On: 12/05/2010 10:07 CDT Performed [...] CDT Dependent Habits Tobacco Use/Currently Using: No STEWARTJASONVILMA Piper 12/05/2010 10:05 CDT Caffeine Use Grid [...] STEVE ANDREA CNP; Reviewed Date: 09/05/2010 9:47 TILER'S ASSISTANT Source: [employer] Document Id: [id number] CDT!22 documented in this encounter Plan of Treatment Not on filedocumented as of this encounter Visit Diagnoses Not on filedocumented in this encounter
--- OUTSIDE RECORDS SUMMARY | 2022-08-05 10:22 | XMS_ITS | Encounter Summary ---
:1960 Author Organization [facility] Address [address] [place] [address] Care Team Providers Name Role Phone Unavailable Primary Care Provider Unavailable Encounter Details Date Type Department Care Team Description 11/18/2011 Hospital Encounter HX [facility] Cindy Moy A PRN, C.N.P. [address] [place], [place] [phone] (Wo rk) Social History [...]
--- OUTSIDE RECORDS SUMMARY | 2022-08-05 10:22 | XMS_ITS | Encounter Summary ---
:1960 Author Organization [facility] Address [address] [place] [address] Care Team Providers Name Role Phone Unavailable Primary Care Provider Unavailable Encounter Details Date Type Department Care Team Description 03/03/2012 Hospital Encounter HX [facility] Cindy Moy A PRN, C.N.P. [address] [place], [place] [phone] (Wo rk) Social History [...] C.N.P. LAB HISTORICAL ORDERS Performing Organization Address [facility] Phon e Number POWERCHART HX STOOL OCCULT BLOOD - DAY 2 (03/02/2012 8:00 AM CDT) athologist Signature Occult Blood - Negative POWERCHART 2, Fecal Specimen (Source) Anatomical Collection Method Collection Time Re ceived Time Location / / Volume Laterality Stool 03/02/2012 8:00 AM CDT Kalia Grier APRN.N.P. LAB HISTORICAL ORDERS Performing Organization Address [facility] Phon e Number POWERCHART HX STOOL OCCULT BLOOD- DAY 1 (03/01/2012 8:00 AM CDT) athologist Signature HXOccult Bld Negative Negative POWERCHART Stl I Specimen (Source) Anatomical Collection Method Collection Time Re ceived Time Location / / Volume Laterality Stool 03/01/2012 8:00 AM CDT Kalia Grier APRN.N.P. LAB HISTORICAL ORDERS Performing Organization Address [facility] Phon e Number POWERCHART documented in this encounter Visit Diagnoses Not on filedocumented in this encounter
--- OUTSIDE RECORDS SUMMARY | 2022-08-05 10:22 | XMS_ITS | Encounter Summary ---
:1960 Author Organization [facility] Address [address] [place] [address] Care Team Providers Name Role Phone Unavailable Primary Care Provider Unavailable Encounter Details Date Type Department Care Team Description 02/11/2013 Hospital Encounter HX [facility] FB FAMILYPRA Rosangela Vieira M.D. [address] [facility], [address] [place], [place] [address] (Wo rk) Social History [...] Vieira M.D. - 02/11/2013 3:39 PM CDT [id number] CHIEF COMPLAINT/REASON FOR VISIT Multiple issues. HISTORY [...] a day, and has been referred to [place] for a recalcitrant A1c of over 10%. [...] he told me he was referred to [place] and so he will follow up with them. He was wondering about weight loss surgery. He also has other health conditions that can make the surgery somewhat higher risk including high blood pressure, high cholesterol and of course the diabetes.He will go for the referral at [place]. Mariluz Vieira M.D./steven Electronically Signed By: MARILUZ VIEIRA MD On: 02/15/2013 11:53 AM Source: [facility] MHSDOLBEYNONRADSYS Document Id: [id number] documented in this encounter Miscellaneous Notes Miscellaneous - Mariluz Vieira M.D. - 02/11/2013 4:40 PM CDT Ambulatory Patient Summary [address] [place] [address] Visit Information Name: LAZ LUNA [facility] Number: [id number] Current Date: 02/11/2013 16:40:07 Physicians Attending Provider: MARILUZ VIEIRA MD Primary Care Provider: STEVE ANDREA [facility] Your Medications Here is a list [...] Date Time Location Reason Provider 03/16/2013 16:00 [facility] Mariluz Vieira MD Your Goals/Additional instructions: Source: [facility] POWERCHART Document Id: [id number] Miscellaneous - Mariluz Vieira M.D. - 02/11/2013 4:40 PM CDT Ambulatory Depart Summary [address] [address] Visit Information Name: LUNALAZ [facility] Number: [id number] Visit Date: 02/11/2013 16:40:06 Attending Provider: MARILUZ VIEIRA MD Primary Care Provider: STEVE ANDREA TRANSFER PUMPER LAZ LUNA has been given the following [...] how to best lower your sugars Source: [facility] POWERCHART Document Id: [id number] Miscellaneous - Ashley Dia L.P.N. - 02/11/2013 3:54 PM CDT Adult [place] Operator Intake/History Adult [place] Operator Intake/History Entered On: 02/11/2013 16:00 CDT Performed [...] Information Given By : Patient Languages : Hebrew ASHLEY DIA - 02/11/2013 15:54 CDT Subjective [...] ASHLEY DIA - 02/11/2013 15:54 CDT [facility] Document Id: [id number] CDT!33 documented in this encounter Plan of Treatment Not on filedocumented as of this encounter Visit Diagnoses Not on filedocumented in this encounter
--- OUTSIDE RECORDS SUMMARY | 2022-08-05 10:22 | XMS_ITS | Encounter Summary ---
:1960 Author Organization [facility] Address [address] [place] [address] Care Team Providers Name Role Phone Unavailable Primary Care Provider Unavailable Encounter Details Date Type Department Care Team Description 02/19/2012 Hospital Encounter HX [facility] FBHB FAMILYPRA Bhumi Andrea, HAKEEM, C.N.P. [address] [place] [phone] (Wo rk) Social History Tobacco Use Types [...] Progress Notes Steve Andrea APRN, C.N.P. - 02/19/2012 12:00 AM CDT [id number] CHIEF COMPLAINT/ REASON FOR VISIT 1. 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 He again talked about gastric bypass today [...] 3 months SJM/clf Signed Steve Andrea, MSN, MANAGER BAR, CDE Family Nurse Practitioner Electronically Signed By: STEVE ANDREA CNP On: 02/19/2012 12:02 PM Source: [facility] MHSDOLBEYNONRADSYS Document Id: [id number] documented in this encounter Miscellaneous Notes Miscellaneous - Steve Andrea APRN, C.N.P. - 02/19/2012 9:51 AM CDT Ambulatory Patient Summary [address] [address] Visit Information Name: LAZ LUNA Current Date: [...] No Appointments found Your Goals/Additional instructions: Source: [facility] POWERnoFeeRealEstateSales.com Document Id: [id number] Miscellaneous - Steve Andrea APRN, C.N.P. - 02/19/2012 9:51 AM CDT Ambulatory Depart Summary [address] [address] Visit Information Name: LAZ LUNA Visit Date: [...] your provider for clarification. Additional Information: Source: [facility] POWERCHART Document Id: [id number] Miscellaneous - Samantha Chavez L.P.N. - 02/19/2012 9:35 AM CDT Ambulatory Vitals Height Weight Ambulatory Vitals Height Weight Entered On: 02/19/2012 9:36 CDT Performed On: 02/19/2012 9:35 CDT by SAMANTHA CHAVEZ Vitals/Ht/Wt Systolic Blood Pressure : 144mmHg (HI) Diastolic Blood Pressure : 86mmHg NIBP Mean : 105mmHg SAMANTHA CHAVEZ - 02/19/2012 9:35 CDT Source: [facility] POWERCHART Document Id: [id number] Miscellaneous - Samantha Chavez L.P.N. - 02/19/2012 9:32 AM CDT Adult Securities Attorney Intake/History Adult Securities Attorney Intake/History Entered On: 02/19/2012 9:34 CDT Performed [...] CNP; Reviewed Date: 12/05/2010 10:10 CDT Source: [facility] [employer] Document Id: [id number] documented in this encounter Plan of Treatment Not on filedocumented as of this encounter Visit Diagnoses Not on filedocumented in this encounter
--- OUTSIDE RECORDS SUMMARY | 2022-08-05 10:22 | XMS_ITS | Encounter Summary ---
:1960 Author Organization [facility] Address [address] [place] [address] Care Team Providers Name Role Phone Unavailable Primary Care Provider Unavailable Encounter Details Date Type Department Care Team Description 05/01/2010 Hospital Encounter HX [facility] FAMILYPRA Bhumi Andrea APRN, C.N.P. [address] [place] [phone] (Wo rk) Social History Tobacco Use Types Packs/Day Years Used Date Smoking Tobacco: Never Assessed Sex Assigned at Date Recorded Not on file documented as of this encounter Miscellaneous Notes Miscellaneous - Steve Andrea APRN, C.N.P. - 05/01/2010 10:33 AM CDT Ambulatory Depart Summary [address] [id number] Visit Information Name: LAZ LUNA Current Date: 05/01/2010 10:33:21 Primary Care Provider: STEVE ANDREA [facility] [id number] LAZ LUNA has been given the following [...] to the patient and/or family, guardian/caregiver. Source: [facility] POWERCHART Document Id: [id number] Electronically signed by Dayami [facility] Centerglendy Waiter/Waitress Second Class [id number] at 02/09/2017 1:31 AM CDT Miscellaneous - Conversion, Historical Provider Ser - 05/01/2010 10:07 AM CDT Adult Project Management Specialist Intake/History Adult Project Management Specialist Intake/History Entered On: 05/01/2010 10:07 CDT [...] Alcohol Use: No BEBO PYLE MARÍA ELENA WATER POLLUTION CONTROL INSPECTOR - 05/01/2010 10:07 CDT Caffeine Use Grid Caffeine Use: Current Type: Soft drinks Frequency: Occasionally BEBO PYLE MARÍA ELENA WATER POLLUTION CONTROL INSPECTOR - 05/01/2010 10:07 CDT Recreational Drug Use Grid Drug Use: None BEBO PYLE MARÍA ELENA WATER POLLUTION CONTROL INSPECTOR - 05/01/2010 10:07 CDT Allergies Allergies (Active) Cipro Estimated Onset Date: Unspecified ; Created By: STEVE ANDREA CNP; Reaction Status: Active ;Category: Drug ; Substance: Cipro ; Type: Allergy ; Updated By: STEVE ANDREA CNP; Reviewed Date: 04/22/2010 10:56 CDT [facility] Document Id: [id number] CDT!24 documented in this encounter Plan of Treatment Not on filedocumented as of this encounter Visit Diagnoses Not on filedocumented in this encounter
--- OUTSIDE RECORDS SUMMARY | 2022-08-05 10:22 | XMS_ITS | Encounter Summary ---
:1960 Author Organization [facility] Address [address] [place] [address] Care Team Providers Name Role Phone Unavailable Primary Care Provider Unavailable Encounter Details Date Type Department Care Team Description 02/19/2012 Hospital Encounter HX [facility] LAB Cindy Moy A PRN, C.N.P. [address] [place], [place] [phone] (Wo rk) Social History [...]
--- OUTSIDE RECORDS SUMMARY | 2022-08-05 10:22 | XMS_ITS | Encounter Summary ---
:1960 Author Organization [facility] Address [address] [place] [address] Care Team Providers Name Role Phone Unavailable Primary Care Provider Unavailable Encounter Details Date Type Department Care Team Description 11/18/2012 Hospital Encounter HX [facility] FBHB FAMILYPRA Bhumi Andrea, HAKEEM, C.N.P. [address] [place] [phone] (Wo rk) Social History Tobacco Use Types [...] APRN, C.N.P. - 11/18/2012 12:56 PM CDT [id number] CHIEF COMPLAINT/REASON FOR VISIT 1. Diabetes type II, uncontrolled 2. Hypertension 3. Hyperlipidemia 4. Urge incontinence 5. Right hip pain HISTORY OF PRESENT ILLNESS 1. Ed is here for a recheck. He has history of diabetes type II, uncontrolled. He did have A1c drawntoday, it is extremely high at 10.7. He wanted to discuss gastric bypass again today. [place] was scheduled [place], but canceled the appointment. He is now [...] Urology back. He has a urologist in [place] that he has seen in the past and he will call for an appointment with her again. 5. Right hip pain. X-ray of the right hip is negative. If symptoms continue, we will have him see physical therapy. Steve Andrea CNP/jostin DOCID: [id number] Electronically Signed By: STEVE ANDREA CNP On: 11/21/2012 04:27 PM Source: [facility] MHSDOLBEYNCONYS Document Id: [id number] documented in this encounter Nursing Notes Steve Andrea APRN, C.N.P. - 11/18/2012 1:24 PM CDT Dry Pan Feeder Intake (Adult) Dry Pan Feeder Intake (Adult) Entered On: 11/18/2012 13:30 CDT [...] ANDREA CNP - 11/18/2012 13:24 CDT [facility] Document Id: [id number] documented in this encounter Miscellaneous Notes Miscellaneous - Steve Andrea APRN, C.N.P. - 11/18/2012 4:42 PM CDT Ambulatory Patient Summary [address] [address] Visit Information Name: NOEMÍ LUNA [facility] Number: [id number] Current Date: 11/18/2012 16:42:37 [...] No Appointments found Your Goals/Additional instructions: Source: [facility] POWERCHART Document Id: [id number] Miscellaneous - Steve Andrea APRN, C.N.P. - 11/18/2012 4:42 PM CDT Ambulatory Depart Summary [place] [id number] [facility] [place] [address] Visit Information Name: NOEMÍ LUNA [facility] Number: [id number] Visit Date: 11/18/2012 16:42:36 [...] your provider for clarification. Additional Information: Source: [facility] POWERCHART Document Id: [id number] Miscellaneous - Steve Andrea APRN, C.N.P. - [...] ANDREA CNP - 11/18/2012 13:21 CDT [facility] Document Id: [id number] Miscellaneous - Marcial Chavez L.P.N. - 11/18/2012 [...] MARCIAL FLOYD - 11/18/2012 13:08 CDT Source: [facility] [employer] Document Id: [id number] Miscellaneous - Marcial Chavez L.PPiliNPili - 11/18/2012 1:04 PM CDT Adult Radar Tester Intake/History Adult Radar Tester Intake/History Entered On: 11/18/2012 13:07 CDT Performed On: 11/18/2012 13:04 CDT by MARCIAL CHAVEZ Intake Chief Complaint : urinary issues due [...] Given By : Patient Languages : Vincentian SCOTT MARCIAL FLOYD - 11/18/2012 13:04 CDT [...] STEVE ANDREA CNP; Reviewed Date: 07/14/2012 14:13 SCHOOL LIBRARIAN Influenza Virus Vaccine Estimated Onset Date: Unspecified ; Reactions: diarrhea ; Created By: STEVE ANDREA CNP; Reaction Status: Active ; Category: Drug ; Substance: Influenza Virus Vaccine ; Type: Intolerance ; Updated By: STEVE ANDREA CNP; Reviewed Date: 07/14/2012 14:13 SCHOOL LIBRARIAN Source: [facility] [employer] Document Id: [id number] documented in this encounter Plan of Treatment [...] Complete, Includes Microscopic (11/18/2012 2:04 PM CDT) [facility] gist Method Time Signature Protein, Ur, Dip >=300 (A) Negative POWERCHART Source Clean Void POWERCHART Urine HXUr Color Yellow POWERCHART Appearance Clear POWERCHART Glucose >=1000 (A) Negative POWERCHART HXBILIRUBIN Negative Negative POWERCHART Ketones, QL(U) Negative Negative POWERCHART Specific 1.025 (A) 1.020 POWERCHART [place], POCT, U pH, POCT, Urine 6.5 5.0 [...] absence of malignant disease. Test Performed by: [place] [address] Hose Suspender Cutter: Benji roper III, M.D. Specimen (Source) Anatomical Collection Method Collection Time Re ceived Time Location / / Volume Laterality Blood 11/18/2012 1:43 PM CDT Steve Andrea APRN C.N.P. LAB BLOOD ADD-ON Performing Organization Address City/State/ZIP Code Phon e Number POWERCHART documented in this encounter Visit Diagnoses Not on filedocumented in this encounter
--- OUTSIDE RECORDS SUMMARY | 2022-08-05 10:22 | XMS_ITS | Encounter Summary ---
:1960 Author Organization [facility] Address [address] [place] [address] Care Team Providers Name Role Phone Unavailable Primary Care Provider Unavailable Encounter Details Date Type Department Care Team Description 04/08/2010 Hospital Encounter HX [facility] UROLOGY Jose José M.D. [address] [place] [phone] (Wo rk) Social History Tobacco Use Types Packs/Day Years Used Date Smoking Tobacco: Never Assessed Sex Assigned at Date Recorded Not on file documented as of this encounter Progress Notes Jose José M.D. - 04/08/2010 12:00 AM CDT [id number] IMPRESSION/REPORT/PLAN 1. Symptomatic left ureteral stone. PLAN [...] has seen Dr. Jarvis Heart at the [facility] for evaluation of this. It was felt that he had mild urgency with urge incontinence exacerbated by the use of diuretics. He also has a history of erectile dysfunction. The patient does not have a history of prior stones. CURRENT MEDICATIONS Post-visit Medication Reconciliation Per [facility] electronic medical record. ALLERGIES Per [facility] electronic medical record. SYSTEMS REVIEW For further details of systems review, please see separate personal history form dated 04/08/2010. PAST MEDICAL/SURGICAL HISTORY 1. Urge urinary incontinence 2. Hypertension 3. Hyperlipidemia 4. Type 2 diabetes mellitus 5. Erectile dysfunction SOCIAL HISTORY The patient is . He does not use tobacco, alcohol or recreational drugs. 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 FAMILY HISTORY Father is 83 and [...] JOSÉ MD On 04/09/2010 03:57 PM Source: [facility] MANHATTANSDOLBEYNONRADSYS Document Id: [id number] documented in this encounter Miscellaneous Notes Miscellaneous - Conversion, Historical Provider Ser - 04/08/2010 2:41 PM CDT Adult Page Makeup System Operator Intake/History Adult Page Makeup System Operator Intake/History Entered On: 04/08/2010 14:46 CDT Performed [...] CNP; Reviewed Date: 12/28/2009 9:39 CDT Source: [facility] POWERCHART Document Id: [id number] CDT!29 documented in this encounter Plan of Treatment Not on filedocumented as of this encounter Visit Diagnoses Not on filedocumented in this encounter
--- OUTSIDE RECORDS SUMMARY | 2022-08-05 10:22 | XMS_ITS | Encounter Summary ---
:1960 Author Organization [facility] Address [address] [place] [address] Care Team Providers Name Role Phone Unavailable Primary Care Provider Unavailable Encounter Details Date Type Department Care Team Description 11/18/[address] [facility] FBHB LAB Cindy Moy A PRN, C.N.P. [address] [place], [place] [phone] (Wo rk) Social History [...]
--- OUTSIDE RECORDS SUMMARY | 2022-08-05 10:22 | XMS_ITS | Encounter Summary ---
:1960 Author Organization [facility] Address [address] [place] [address] Care Team Providers Name Role Phone Unavailable Primary Care Provider Unavailable Encounter Details Date Type Department Care Team Description 03/03/2012 Hospital Encounter HX [facility] FBHB FAMILYPRA Bhumi Andrea, HAKEEM, C.N.P. [address] [place] [phone] (Wo rk) Social History Tobacco Use Types [...] APRN, C.N.P. - 03/03/2012 12:00 AM CDT [id number] CHIEF COMPLAINT/REASON FOR VISIT Mattery eyes, sinus [...] improve. SJM/sks Signed Steve Fernandez. Farzaneh, MSN, YARD INSPECTOR, CDE Family Nurse Practitioner Electronically Signed By: STEVE ANDREA YARD INSPECTOR On: 03/08/2012 07:50 AM Source: [facility] MHSDOLBEYNONRADSYS Document Id: [id number] documented in this encounter Miscellaneous Notes Miscellaneous [...] Patient ( ) ( ) Call for Marine Oiler ( ) Follow up on Results ( ) Other: PROVIDER: ( ) Call Physician ( ) Call Pharmacist ( ) Call Lab ( ) Other: Special Instructions: Comments: Source: [facility] POWERCHART Document Id: [id number] Electronically signed by Dayami, [facility] Biology Laboratory Assistant [id number] at 02/07/2017 7:31 PM CDT Miscellaneous - Steve Andrea APRN, C.N.P. - 03/03/2012 1:34 PM CDT Ambulatory Depart Summary [address] [address] Visit Information Name: CARLYLE, ED Visit Date: 03/03/2012 13:34:09 Attending Provider: STEVE ANDREA CNP Primary Care Provider: SETVE ANDREA CNP CARLYLE, ED has been given [...] your provider for clarification. Additional Information: Source: [facility] POWERCHART Document Id: [id number] Miscellaneous - Steve Andrea APRN, C.N.P. - 03/03/2012 1:34 PM CDT Ambulatory Patient Summary [address] [address] Visit Information Name: CARLYLE NOEMÍ Current Date: [...] Provider 05/20/2012 09:00 FBHB Lab 05/20/2012 09:30 [facility] Diabetes recheck Steve Andrea CNP Your Goals/Additional instructions: Source: [facility] POWERCHART Document Id: [id number] Miscellaneous - Marcial Chavez L.P.N. - 03/03/2012 1:07 PM CDT Adult Call Box Wirer Intake/History Adult Call Box Wirer Intake/History Entered On: 03/03/2012 13:09 CDT Performed [...] CNP; Reviewed Date: 02/19/2012 9:51 CDT Source: [facility] POWERCHART Document Id: [id number] documented in this encounter Plan of Treatment Not on filedocumented as of this encounter Visit Diagnoses Not on filedocumented in this encounter
--- OUTSIDE RECORDS SUMMARY | 2022-08-05 10:22 | XMS_ITS | Encounter Summary ---
:1960 Author Organization [facility] Address [address] [place] [address] Care Team Providers Name Role Phone Unavailable Primary Care Provider Unavailable Encounter Details Date Type Department Care Team Description 09/18/2010 Hospital Encounter HX [facility] FAMILYPRA Uriel Eid APRN, C.N.P. [address] [place] [phone] (Wo rk) Social History Tobacco Use Types Packs/Day Years Used Date Smoking Tobacco: Never Assessed Sex Assigned at Date Recorded Not on file documented as of this encounter Progress Notes Haleigh Eid APRN, C.N.P. - 09/18/2010 12:00 AM CST [id number] IMPRESSION/REPORT/PLAN Diabetic ischemic foot ulcer Procedural pause [...] lower extremity. PVD/cmt Signed Haleigh Eid RN, LIEUTENANT SHIFT SUPERVISOR Geriatric Nurse Practitioner Electronically Signed By:HALEIGH EID CNP On 09/20/2010 10:33 AM [facility] Document Id: [id number] STAFF FITTER documented in this encounter Plan of Treatment Not on filedocumented as of this encounter Visit Diagnoses Not on filedocumented in this encounter
--- OUTSIDE RECORDS SUMMARY | 2022-08-05 10:22 | XMS_ITS | Encounter Summary ---
:[address] [facility] Address [address] [place] [address] Care Team Providers Name Role Phone Unavailable Primary Care Provider Unavailable Encounter Details Date Type Department Care Team Description 09/05/2010 Hospital Encounter HX [facility] FBHB LAB Cindy Moy, Soumya PRN, C.N.P. [address] [place], [place] [phone] (Wo rk) Social History Tobacco Use Types Packs/Day Years Used Date Smoking Tobacco: Never Assessed Sex Assigned at Date Recorded Not on file documented as of this encounter Plan of Treatment Not on filedocumented as of this encounter Visit Diagnoses Not on filedocumented in this encounter
--- OUTSIDE RECORDS SUMMARY | 2022-08-05 10:22 | XMS_ITS | Encounter Summary ---
:1960 Author Organization [facility] Address [address] [place] [address] Care Team Providers Name Role Phone Unavailable Primary Care Provider Unavailable Encounter Details Date Type Department Care Team Description 03/19/2011 Hospital Encounter HX [facility] FBHB FAMILYPRA MyrBhumi walker, MACHINE REPAIRER, C.N.P. [address] [place] [phone] (Wo rk) Social History Tobacco Use Types [...] DIAZ LPN On: 07/22/2011 03:47 PM Source: [facility] POWERCHART Document Id: [id number] REFINISHER Brit Diaz L.P.N. - 07/16/2011 10:28 AM CST Diabetic Call Message left with Ed's aftab he is due for diabetic lab and for a blood pressure check with nurse. Electronically Signed By: BRIT DIAZ LPN On: 07/16/2011 10:29 AM Source: [employer] Document Id: [id number] REFINISHER Steve Moy APRN, C.NPiliPPili - 03/19/2011 4:37 PM CDT Parts Room Associate Intake (Adult) Parts Room Associate Intake (Adult) Entered On: 03/19/2011 16:39 CDT [...] MOY CNP - 03/19/2011 16:37 CDT Source: [employer] Document Id: [id number] CDT!33 documented in this encounter Miscellaneous Notes Miscellaneous - Steve Moy APRN, C.N.P. - 03/19/2011 4:46 PM CDT Ambulatory Patient Summary [address] [place] [address] Visit Information Name: NOEMÍ LUNA Current Date: 03/19/2011 16:46:01 Primary Care Provider: STEVE MOY [facility] Your Medications Here is a [...] No Appointments found Your Goals/Additional instructions: Source: [facility] POWERCHART Document Id: [id number] Electronically signed by Conversion, [facility] Boilerhouse Mechanic [id number] at 02/08/2017 3:38 PM CDT Miscellaneous - Steve Moy, HAKEEM, C.N.P. - 03/19/2011 4:46 PM CDT Ambulatory Depart Summary [address] [address] Visit Information Name: NOEMÍ LUNA Current Date: 03/19/2011 16:46:00 Primary Care Provider: STEVE MOY [facility] NOEMÍ LUNA has been given the following [...] to the patient and/or family, guardian/caregiver. Source: [facility] righTune Document Id: [id number] Electronically signed by Dayami [facility] Boilerhouse Mechanic [id number] at 02/08/2017 3:38 PM CDT Miscellaneous - Steve Moy APRN, C.N.P. - 03/19/2011 4:46 PM CDT Quality Measures Quality Measures Entered On: 03/19/2011 16:47 CDT Performed On: 03/19/2011 16:46 CDT by STEVE MOY CNP Diabetes Date of Last Diabetes Education: 03/19/2011 CDT STEVE MOY CNP - 03/19/2011 16:46 CDT Source: [facility] [employer] Document Id: [id number] CDT!3 Miscellaneous - Lisa Stock Provider Ser - 03/19/2011 4:28 PM CDT Adult Sql Ssrs Ssis Developer Intake/History Adult Sql Ssrs Ssis Developer Intake/History Entered On: 03/19/2011 16:29 CDT Performed [...] 2.75 Body Mass Index: 48.29kg/m2 BEBO PYLE [facility] 03/19/2011 16:28 CDT Subjective Pain Symptoms: No BEBO PYLE [facility] 03/19/2011 16:28 CDT Dependent Habits Tobacco Use/Currently Using: No Alcohol Use: No BEBO YPLE [facility] 03/19/2011 16:28 CDT Caffeine Use Grid Caffeine Use: Current Type: Soft drinks Frequency: Occasionally BEBO PYLE MARÍA ELENA [facility] 03/19/2011 16:28 CDT Recreational Drug Use Grid Drug Use: None BEBO PYLE [facility] 03/19/2011 16:28 CDT Allergy Allergies (Active) Cipro [...] CNP; Reviewed Date: 12/05/2010 10:10 CDT Source: [employer] Document Id: [id number] CDT!27 documented in this encounter Plan of Treatment Not on filedocumented as of this encounter Visit Diagnoses Not on filedocumented in this encounter
--- OUTSIDE RECORDS SUMMARY | 2022-08-05 10:22 | XMS_ITS | Encounter Summary ---
:1960 Author Organization [facility] Address [address] [place] [address] Care Team Providers Name Role Phone Unavailable Primary Care Provider Unavailable Encounter Details Date Type Department Care Team Description 07/30/2011 Hospital Encounter HX [facility] FB NURSE ONL Bhumi Moy, ELECTRICIANS TOP HELPER, C.N.P. [address] [place] [phone] (Wo rk) Social History Tobacco Use Types Packs/Day Years Used Date Smoking Tobacco: Never Assessed Sex Assigned at Date Recorded Not on file documented as of this encounter Miscellaneous Notes Miscellaneous - Samantha Grayson, L.P.N. - 07/30/2011 11:55 AM CST Ambulatory Vitals Height Weight Ambulatory Vitals Height Weight Entered On: 07/30/2011 11:55 BILINGUAL TRAINER Performed On: 07/30/2011 11:55 BILINGUAL TRAINER by SAMANTHA GRAYSON Vitals/Ht/Wt Systolic Blood Pressure : 132mmHg Diastolic Blood Pressure : 82mmHg NIBP Mean : 99mmHg SAMANTHA GRAYSON - 07/30/2011 11:55 BILINGUAL TRAINER Source: [facility] POWERCHART Document Id: [id number] BILINGUAL TRAINER!5 NGUAL TRAINER documented in this encounter Plan of Treatment Not on filedocumented as of this encounter Visit Diagnoses Not on filedocumented in this encounter
--- OUTSIDE RECORDS SUMMARY | 2022-08-05 10:22 | XMS_ITS | Encounter Summary ---
:1960 Author Organization [facility] Address [address] [place] [address] Care Team Providers Name Role Phone Unavailable Primary Care Provider Unavailable Encounter Details Date Type Department Care Team Description 04/11/2010 Hospital Encounter HX [facility] FBHB FAMILYPRA Bhumi Andrea, HAKEEM, C.N.P. [address] [place] [phone] (Wo rk) Social History Tobacco Use Types Packs/Day Years Used Date Smoking Tobacco: Never Assessed Sex Assigned at Date Recorded Not on file documented as of this encounter H&P Notes Steve Andrea APRN, C.N.P. - 04/11/2010 12:00 AM CDT [id number] IMPRESSION / REPORT / PLAN 1. Preoperative medical evaluation. Patient's active problems diagnostically and therapeutically optimized for planned procedure. He will be NPO after midnight the night before surgery. He will stop Metformin on 04-13-10. He is holding aspirin as of now. He will resume all medications after surgery. Appropriate paperwork completed and faxed over to [facility]. All of his questions were answered. [...] with laser with Dr. José at [facility] on 04-15-10. 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 FAMILY HISTORY Mother coronary artery disease diabetes [...] chest x-ray SJM/clf Signed Steve Andrea, MSN, CERTIFIED NURSING ASSISTANT INSTRUCTOR, CDE Family Nurse Practitioner Electronically Signed By:STEVE ANDREA CNP On 04/12/2010 09:26 AM Source: [facility] MHSDOLBEYNSARAHSYGlendy Document Id: [id number] documented in this encounter Miscellaneous Notes Miscellaneous [...] results Due Date/Time: 04/11/2010 13:37:00 CDT Source: [facility] POWERCHART Document Id: [id number] Electronically signed by Dayami [facility] Swimming Pool Servicer [id number] at 02/09/2017 1:31 AM CDT Miscellaneous - Steve Andrea APRN, C.N.P. - 04/11/2010 1:37 PM CDT Reminder Msg Document Contains Addenda Addendum by BEBO PYLE LPN on 01 May 2010 10:26:50 CDT Done. From: STEVE ANDREA CNP To: BEBO PYLE LPN Sent: 04/11/2010 13:37:36 CDT ! Show up: 04/11/2010 13:36:00 CDT Subject: Reminder Msg Actions: Notify patient of results Due Date/Time: 04/11/2010 13:36:00 CDT Source: [facility] POWERCHART Document Id: [id number] Electronically signed by Dayami, [facility] Swimming Pool Servicer [id number] at 02/09/2017 1:31 AM CDT Miscellaneous - Steve Andrea APRN, C.N.P. - 04/11/2010 10:43 AM CDT Ambulatory Depart Summary [address] [address] Visit Information Name: LAZ LUNA Current Date: 04/11/2010 10:43:45 Primary Care Provider: STEVE ANDREA [facility] [phone] LAZ LUNA has been given the following [...] to the patient and/or family, guardian/caregiver. Source: [facility] [employer] Document Id: [id number] Electronically signed by Conversion, [facility] Swimming Pool Servicer [id number] at 02/09/2017 1:31 AM CDT Miscellaneous - Conversion, Historical Provider Ser - 04/11/2010 10:19 AM CDT Adult Linoleum Tile Layer Intake/History Adult Linoleum Tile Layer Intake/History Entered On: 04/11/2010 10:20 CDT Performed [...] CNP; Reviewed Date: 04/08/2010 14:46 CDT Source: [facility] Document Id: [id number] CDT!25 documented in this encounter Plan of [...]
--- OUTSIDE RECORDS SUMMARY | 2022-08-05 10:22 | XMS_ITS | Encounter Summary ---
:1960 Author Organization [facility] Address [address] [place] [address] Care Team Providers Name Role Phone Unavailable [...] Lucero Ed.D. - 03/02/2013 12:00 AM CDT [id number] LETTER Laz Luna [address] [facility] [address] [facility] [phone] March 02, 2013 Dear Ed: Thank you for requesting an appointment for services at the [facility] in [facility]. Your Initial Evaluation appointment has been scheduled in our Psychology Department with: Friday, May 03, 2013 at 12:45 PM for Paperwork & Registration followed by a 45 minute appointment at 1:30 PM with your provider: Sebas Soares Asp, Ed.D., L.P. [facility] Your appointment with your provider will be [...] are located on the 3rd floor of [facility] and [facility]) at [address] [place] [address]. If the above scheduled appointment is not convenient, please contact our office as soon as possible at or to reschedule. We trust that your experience with us will be a pleasant and worthwhile one. Sincerely, [facility] Contact Information March 02, 2013 Intake done by: [facility]#: [id number] NAME: Laz Luna SSN: [id number] : 1960 Age: [age] year old Sex: male Spouse/ S.O.: - Parent/Guardian: - ADDRESS: [address] [place] [phone] Phone Numbers: [phone] (home) Phone Contact: Home: Yes Messages: Yes Written Contact: Home: Yes Work: No No coverage found. Court Ordered/Litigation No Referral Information Caller: Self Referred by: [place] Location: [place] Referred to: Dr. Lucero Prior Contact with [facility] [employer]? No Date: - Doctor seen: NA Reason: Learn Program Length and/or Severity of Problem: - Past or Current Mental Health Provider: n/a Primary Care Physician: No primary provider on file. Medication: n/a Dosage: n/a Appointments Appt. With: Sebas Soares Asp, Ed.D., Jun [facility] Initial: 05/03/13 @ 1:30PM F/U: - 3rd.: - Intake Packet Sent on __03/02/13 Wait List Yes Source: MANNY COSTELLOHXTRANSXRTFSYS Document Id: [id number] documented in this encounter Plan of Treatment Not on filedocumented as of this encounter Visit Diagnoses Not on filedocumented in this encounter Additional Health Concerns Assessment Noted Time PHQ-9 Depression Total Score: 18 02/14/2013 9:53 AM CD T documented as of this encounter
--- OUTSIDE RECORDS SUMMARY | 2022-08-05 10:22 | XMS_ITS | Encounter Summary ---
:1960 Author Organization [facility] Address [address] [place] [address] Care Team Providers Name Role Phone Unavailable Primary Care Provider Unavailable Encounter Details Date Type Department Care Team Description 07/14/2012 Hospital Encounter HX [facility] FB FAMILYPRA Rosangela Vieira M.D. [address] [facility], [address] [place], [place] [address] (Wo rk) Social History Tobacco Use Types Packs/Day Years Used Date Smoking Tobacco: Never Assessed Sex Assigned at Date Recorded Not on file documented as of this encounter Last Filed Vital Signs Vital Sign Reading Time Taken Comments Blood Pressure 154/102 07/14/2012 2:17 PM COBOL DEVELOPER Pulse 68 07/14/2012 2:13 PM COBOL DEVELOPER Temperature - - Respiratory Rate 20 07/14/2012 2:13 PM COBOL DEVELOPER Oxygen Saturation - - Inhaled Oxygen Concentration - - Weight 151 kg (332 lb 14.3 oz) 07/14/2012 2:13 PM COBOL DEVELOPER Height - - Body Mass Index 46.61 02/19/2012 9:32 AM CDT documented in this encounter Progress Notes Mariluz Vieira M.D. - 07/14/2012 2:02 PM CST [id number] CHIEF COMPLAINT/REASON FOR VISIT Rash HISTORY OF [...] the 200 to 300s. 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 IMPRESSION/REPORT/PLAN 1. Sim intertrigo - will give 2.5% hydrocortisone lotion. [...] VIEIRA MD On: 07/16/2012 04:24 PM Source: [facility] MHSDOLBEYNONRADSYS Document Id: [id number] L DEVELOPER documented in this encounter Miscellaneous Notes Miscellaneous - Mariluz Vieira M.D. - 07/14/2012 4:00 PM CST Results Notification From: MARILUZ VIEIRA MD To: STEVE ANDREA CNP Sent: 07/14/2012 16:00:21 COBOL DEVELOPER ! Show up: 07/14/2012 22:00:21 [facility] Subject: Results Notification Actions: Notify patient of results Source: [facility] POWERCHART Document Id: [id number] Electronically signed by Dayami [facility] Interpretive Naturalist [id number] at 02/07/2017 6:42 PM CDT Miscellaneous - Mariluz Vieira M.D. - 07/14/2012 2:56 PM CST Ambulatory Patient Summary [address] [address] Visit Information Name: NOEMÍ LUNA Current Date: [...] today- A1c, lipids, and comprehensive panel Source: [facility] POWERCHART Document Id: [id number] L DEVELOPER Miscellaneous - Mariluz Vieira M.D. - 07/14/2012 2:56 PM CST Ambulatory Depart Summary [address] [address] Visit Information Name: NOEMÍ LUNA Visit Date: 07/14/2012 14:56:30 Attending Provider: MARILUZ VIEIRA MD Primary Care Provider: STEVE ANDREA [facility] LUNA, NOEMÍ has been given the [...] provider for clarification. Additional Information: Source: [facility] POWERCHART Document Id: [id number] L DEVELOPER Miscellaneous - Ynes Dia L.P.N. - 07/14/2012 2:17 PM CST Ambulatory Vitals Height Weight Ambulatory Vitals Height Weight Entered On: 07/14/2012 14:17 COBOL DEVELOPER Performed On: 07/14/2012 14:17 COBOL DEVELOPER by YNES DIA Vitals/Ht/Wt Systolic Blood Pressure : 154mmHg (HI) Diastolic Blood Pressure : 102mmHg (>HHI) NIBP Mean : 119mmHg BP Location : Left upper extremity Blood Pressure Cuff Size : Large YNES DIA - 07/14/2012 14:17 COBOL DEVELOPER Source: [facility] POWERCHART Document Id: [id number] L DEVELOPER Miscellaneous - Ynes Dia L.P.N. - 07/14/2012 2:17 PM CST Ambulatory Vitals Height Weight Ambulatory Vitals Height Weight Entered On: 07/14/2012 14:19 COBOL DEVELOPER Performed On: 07/14/2012 14:17 COBOL DEVELOPER by YNES DIA Vitals/Ht/Wt Systolic Blood Pressure : 154mmHg (HI) Diastolic Blood Pressure : 102mmHg (>HHI) NIBP Mean : 119mmHg BP Location : Left upper extremity Blood Pressure Cuff Size : Large YNES DIA - 07/14/2012 14:17 COBOL DEVELOPER Source: [facility] [employer] Document Id: [id number] L DEVELOPER Miscellaneous - Ynes Dia L.PPiliNPili - 07/14/2012 2:13 PM CST Adult Hydropress Operator Intake/History Adult Hydropress Operator Intake/History Entered On: 07/14/2012 14:17 COBOL DEVELOPER Performed On: 07/14/2012 14:13 COBOL DEVELOPER by YNES DIA Intake Chief Complaint : [...] : 151.00kg YNES DIA - 07/14/2012 14:13 COBOL DEVELOPER Subjective Pain Symptoms : No YNES DIA - 07/14/2012 14:13 COBOL DEVELOPER Dependent Habits Tobacco Use/Currently Using : No Smoking Status : Never smoker YNES DIA - 07/14/2012 14:13 COBOL DEVELOPER Caffeine Use Grid Caffeine Use : Current Type : Soft drinks Frequency : Occasionally YNES DIA - 07/14/2012 14:13 COBOL DEVELOPER Recreational Drug Use Grid Drug Use : None YNES DIA - 07/14/2012 14:13 COBOL DEVELOPER Allergy Allergies (Active) Cipro Estimated Onset Date: Unspecified ; Created By: STEVE ANDREA CNP; Reaction Status: Active ;Category: Drug ; Substance: Cipro ; Type: Allergy ; Updated By: STEVE ANDREA CNP; Reviewed Date: 07/14/2012 14:13 COBOL DEVELOPER Influenza Virus Vaccine Estimated Onset Date: Unspecified ; Reactions: diarrhea ; Created By: STEVE ANDREA CNP; Reaction Status: Active ; Category: Drug ; Substance: Influenza Virus Vaccine ; Type: Intolerance ; Updated By: STEVE ANDREA CNP; Reviewed Date: 07/14/2012 14:13 COBOL DEVELOPER Source: [facility] POWERCHART Document Id: [id number] L DEVELOPER documented in this encounter Plan of Treatment Not on filedocumented as of this encounter Procedures Procedure Name Priority Date/Time Associated Comments Diagnosis LIPID PANEL, S Routine 07/14/2012 2:56 PM Results for this COBOL DEVELOPER procedure are i n the results section. HEMOGLOBIN A1C, B Routine 07/14/2012 2:56 PM Resu lts for this COBOL DEVELOPER procedure are i n the results section. COMPREHENSIVE Routine 07/14/2012 2:56 PM Results for this METABOLIC PANEL, S/P COBOL DEVELOPER procedu re are in the results section. documented in this encounter Results (ABNORMAL) Lipid Panel (07/14/2012 2:56 PM COBOL DEVELOPER) Patholo gist Method Time Signature Cholesterol, Total 154 0 - 200 POWERCHART MGDL HX HDL 43.0 40.0 - POWERCHART 60.0 MGDL Triglycerides 240 (H) 0 - 150 POWERCHART MGDL Calculated LDL 63 0 - 100 POWERCHART MGDL Specimen (Source) Anatomical Collection Method Collection Time Re ceived Time Location / / Volume Laterality Blood 07/14/2012 2:56 PM COBOL DEVELOPER Mariluz Vieira M.D. LAB BLOOD ADD-ON Performing Organization Address City/State/ZIP Code Phon e Number POWERCHART (ABNORMAL) Hemoglobin A1c (07/14/2012 2:56 PM COBOL DEVELOPER) P athologist Signature Hemoglobin A1c, 9.8 (H) 4.0 - 6.0 POWERCHART B Specimen (Source) Anatomical Collection Method Collection Time Re ceived Time Location / / Volume Laterality Blood 07/14/2012 2:56 PM COBOL DEVELOPER Mariluz Vieira M.D. LAB BLOOD ADD-ON Performing Organization Address City/State/ZIP Code Phon e Number POWERCHART (ABNORMAL) CMP (Comprehensive Metabolic Panel) (07/14/2012 2:56 PM COBOL DEVELOPER) [facility] gist Method Time Signature BUN (Blood Urea [...] MLMIN POWERCHART eGFR Black/ >60 MLMIN POWERCHART Turkmen Glucose, Fasting, S 165 (H) 70 - 99 POWERCHART MGDL Specimen (Source) Anatomical Collection Method Collection Time Re ceived Time Location / / Volume Laterality Blood 07/14/2012 2:56 PM COBOL DEVELOPER Mariluz Vieira M.D. LAB BLOOD ADD-ON Performing Organization Address City/State/ZIP Code Phon e Number POWERCHART documented in this encounter Visit Diagnoses Not on filedocumented in this encounter
--- OUTSIDE RECORDS SUMMARY | 2022-08-05 10:22 | XMS_ITS | Encounter Summary ---
:1960 Author Organization [facility] Address [address] [place] [address] Care Team Providers Name Role Phone Unavailable Primary Care Provider Unavailable Encounter Details Date Type Department Care Team Description 07/24/2011 Hospital Encounter HX [facility] FBHB LAB Cindy Moy, Soumya PRN, C.N.P. [address] [place], [place] [phone] (Wo rk) Social History Tobacco Use Types Packs/Day Years Used Date Smoking Tobacco: Never Assessed Sex Assigned at Date Recorded Not on file documented as of this encounter Plan of Treatment Not on filedocumented as of this encounter Visit Diagnoses Not on filedocumented in this encounter
--- OUTSIDE RECORDS SUMMARY | 2022-08-05 10:22 | XMS_ITS | Encounter Summary ---
:1960 Author Organization [facility] Address [address] [place] [address] Care Team Providers Name Role Phone Unavailable Primary Care Provider Unavailable Encounter Details Date Type Department Care Team Description 03/31/2011 Hospital Encounter HX [facility] Vishal Suarez Jr., M.D. [address] [place] [phone] (Wo rk) Social History Tobacco Use Types Packs/Day Years Used Date Smoking Tobacco: Never Assessed Sex Assigned at Date Recorded Not on file documented as of this encounter Plan of Treatment Not on filedocumented as of this encounter Visit Diagnoses Not on filedocumented in this encounter
--- OUTSIDE RECORDS SUMMARY | 2022-08-05 10:22 | XMS_ITS | Encounter Summary ---
:1960 Author Organization [facility] Address [address] [place] [address] Care Team Providers Name Role Phone Unavailable Primary Care Provider Unavailable Encounter Details Date Type Department Care Team Description 07/24/2011 [facility] Cindy Moy, Soumya PRN, C.N.P. [address] [place], [place] [phone] (Wo rk) Social History Tobacco Use Types Packs/Day Years Used Date Smoking Tobacco: Never Assessed Sex Assigned at Date Recorded Not on file documented as of this encounter Plan of Treatment Not on filedocumented as of this encounter Visit Diagnoses Not on filedocumented in this encounter
--- OUTSIDE RECORDS SUMMARY | 2022-08-05 10:22 | XMS_ITS | Encounter Summary ---
:[address] [facility] Address [address] [place] [address] Care Team Providers Name Role Phone Unavailable Primary Care Provider Unavailable Encounter Details Date Type Department Care Team Description 09/05/2010 Hospital Encounter HX [facility] FAMILYPR[facility] Bhumi Andrea, HAKEEM, C.N.P. [address] [place] [phone] (Wo rk) Social History Tobacco Use Types Packs/Day Years Used Date Smoking Tobacco: Never Assessed Sex Assigned at Date Recorded Not on file documented as of this encounter Progress Notes Steve Andrea, HAKEEM, C.N.P. - 09/05/2010 12:00 AM CST [id number] CHIEF COMPLAINT/ REASON FOR VISIT 1. Diabetes [...] needed. SJM/clf Signed Steve Fernandez. Farzaneh, MSN, VP CARE MANAGEMENT, CDE Family Nurse Practitioner Electronically Signed By:STEVE ANDREA CNP On 09/05/2010 02:13 PM Source: [facility] MHSDOLBEYNONRADSYS Document Id: [id number] N MILL WORKER documented in this encounter Procedure Notes Steve Andrea APRN, C.N.P. - 09/05/2010 9:47 AM CST Cancel Permanently Flu Vaccine Cancel Permanently Flu Vaccine Entered On: 09/05/2010 9:47 GRAIN MILL WORKER Performed On: 09/05/2010 9:47 GRAIN MILL WORKER by STEVE ANDREA CNP Cancel Permanently Flu Vaccine Cancel Permanently Flu Vaccine: Allergy/Intolerance or interaction STEVE ANDREA CNP - 09/05/2010 9:47 GRAIN MILL WORKER Source: [facility] POWERCHART Document Id: [id number] GRAIN MILL WORKER!3 N MILL WORKER documented in this encounter Miscellaneous Notes Miscellaneous - Steve Andrea APRN, C.N.P. - 09/05/2010 9:55 AM CST Ambulatory Patient Summary [address] [address] Visit Information Name: LAZ LUNA Current Date: 09/05/2010 09:55:16 Primary Care Provider: STEVE ANDREA [facility] [phone] Your Medications Here is a list of [...] found Your Goals/Additional instructions: Source: [facility] POWERCHART Document Id: [id number] Miscellaneous - Steve Andrea, HAKEEM, C.N.P. - 09/05/2010 9:55 AM CST Ambulatory Depart Summary [address] [address] Visit Information Name: LAZ LUNA Current Date: 09/05/2010 09:55:14 Primary Care Provider: STEVE ANDREA [facility] [phone] LAZ LUNA has been given the following [...] the patient and/or family, guardian/caregiver. Source: [facility] EQ worksCHART Document Id: [id number] Miscellaneous - Conversion, Historical Provider Ser - 09/05/2010 9:38 AM GRAIN MILL WORKER Ambulatory Vitals Height Weight Ambulatory Vitals Height Weight Entered On: 09/05/2010 9:39 GRAIN MILL WORKER Performed On: 09/05/2010 9:38 GRAIN MILL WORKER by HEIDI PURCELL/Ht/Wt Systolic Blood Pressure: 130mmHg Diastolic Blood Pressure: 82mmHg NIBP Mean: 98mmHg BP Location: Left upper extremity Heart Rhythm: Regular HEIDI PURCELL - 09/05/2010 9:38 GRAIN MILL WORKER Source: [facility] EQ worksCHART Document Id: [id number] GRAIN MILL WORKER!7 Miscellaneous - Conversion, Historical Provider Ser - 09/05/2010 9:29 AM GRAIN MILL WORKER Adult Application Integration Specialist Intake/History Adult Application Integration Specialist Intake/History Entered On: 09/05/2010 9:33 GRAIN MILL WORKER Performed On: 09/05/2010 9:29 GRAIN MILL WORKER by EHIDI PURCELL Intake Chief Complaint: Recheck from May. Temperature Core: 36.8C(Converted to: 98.2DegF) Peripheral Pulse Rate: 80/min Respiratory Rate: 16/min Systolic Blood Pressure: 140mmHg Diastolic Blood Pressure: 82mmHg NIBP Mean: 101mmHg BP Location: Left upper extremity Heart Rhythm: Regular Actual Weight: 152.200kg(Converted to: 335lb 9oz) Dosing Weight Clinic: 152.20kg HEIDI PURCELL 09/05/2010 9:29 GRAIN MILL WORKER Subjective Pain Symptoms: No HEIDI PURCELL - 09/05/2010 9:29 GRAIN MILL WORKER Dependent Habits Tobacco Use/Currently Using: No HEIDI PURCELL - 09/05/2010 9:29 GRAIN MILL WORKER Caffeine Use Grid Caffeine Use: Current Type: Soft drinks Frequency: Occasionally HEIDI PURCELL - 09/05/2010 9:29 GRAIN MILL WORKER Recreational Drug Use Grid Drug Use: None HEIDI PURCELL 09/05/2010 9:29 GRAIN MILL WORKER Allergies Allergies (Active) Cipro Estimated Onset Date: Unspecified ; Created By: STEVE ANDREA CNP; Reaction Status: Active ;Category: Drug ; Substance: Cipro ; Type: Allergy ; Updated By: STEVE ANDREA CNP; Reviewed Date: 04/22/2010 10:56 CDT Source: [facility] POWERCHART Document Id: [id number] GRAIN MILL WORKER!25 documented in this encounter Plan of Treatment Not on filedocumented as of this encounter Visit Diagnoses Not on filedocumented in this encounter
--- OUTSIDE RECORDS SUMMARY | 2022-08-05 10:22 | XMS_ITS | Encounter Summary ---
:1960 Author Organization [facility] Address [address] [place] [address] Care Team Providers Name Role Phone Unavailable Primary Care Provider Unavailable Encounter Details Date Type Department Care Team Description 07/24/2011 Hospital Encounter HX [facility] FAMILY[facility] Bhumi Andrea, HAKEEM, C.N.P. [address] [place] [phone] (Wo rk) Social History Tobacco Use Types Packs/Day Years Used Date Smoking Tobacco: Never Assessed Sex Assigned at Date Recorded Not on file documented as of this encounter Progress Notes Steve Andrea, HAKEEM, C.N.P. - 07/24/2011 12:00 AM CST [id number] CHIEF COMPLAINT/ REASON FOR VISIT 1. Diabetes type 2 uncontrolled. 2. Hypertension 3. Hyperlipidemia HISTORY OF PRESENT ILLNESS 1. Ed is here for diabetes check. He had A1c done this morning it remains elevated at 8.6. 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 - 10/13/2011 10:10 AM CST Diabetic Call Spoke with patient in regards to being due for diabetic lab work. 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 - 07/24/2011 11:06 AM CST Ambulatory Vitals Height Weight Ambulatory Vitals Height Weight Entered On: 07/24/2011 11:06 MULTIMEDIA COORDINATOR Performed On: 07/24/2011 11:06 MULTIMEDIA COORDINATOR by SAMANTHA CHAVEZ Vitals/Ht/Wt Systolic Blood Pressure : 144mmHg (HI) Diastolic Blood Pressure : 86mmHg NIBP Mean : 105mmHg SAMANTHA CHAVEZ - 07/24/2011 11:06 MULTIMEDIA COORDINATOR Source: [facility] POWERCHART Document Id: [id number] MULTIMEDIA COORDINATOR!5 IMEDIA COORDINATOR Miscellaneous - Steve Andrea APRN, C.N.P. - 07/24/2011 11:03 AM MULTIMEDIA COORDINATOR Ambulatory Patient Summary [address] [address] Visit Information Name: CARLYLE, LAZ Current Date: 07/24/2011 11:03:11 Primary Care Provider: STEVE ANDREA [facility] Your Medications Here is a list [...] No Appointments found Your Goals/Additional instructions: Source: [facility] POWERCHART Document Id: [id number] IMEDIA COORDINATOR Miscellaneous - Steve Andrea APRN, C.N.P. - 07/24/2011 11:03 AM MULTIMEDIA COORDINATOR Ambulatory Depart Summary [address] [address] Visit Information Name: LAZ LUNA Current Date: 07/24/2011 11:03:09 Primary Care Provider: STEVE ANDREA [facility] LAZ LUNA has been given the following [...] Oral once a day Additional Information: Source: [facility] POWERCHART Document Id: [id number] IMEDIA COORDINATOR Miscellaneous - Samantha Chavez L.P.N. - 07/24/2011 10:29 AM CST Adult Traffic Counter Intake/History Adult Traffic Counter Intake/History Entered On: 07/24/2011 10:31 MULTIMEDIA COORDINATOR Performed On: 07/24/2011 10:29 MULTIMEDIA COORDINATOR by SAMANTHA CHAVEZ Intake Chief Complaint : diabetes Temperature Core : 36.8C(Converted to: 98.2DegF) Peripheral Pulse Rate : 72/min Respiratory Rate : 18/min Systolic Blood Pressure : 172mmHg (>HHI) Diastolic Blood Pressure : 102mmHg (>HHI) NIBP Mean : 125mmHg Actual Weight : 157.4kg(Converted to: 347lb 0oz) Dosing Weight Clinic : 157.40kg SAMANTHA CHAVEZ - 07/24/2011 10:29 MULTIMEDIA COORDINATOR Subjective Pain Symptoms : No SAMANTHA CHAVEZ - 07/24/2011 10:29 MULTIMEDIA COORDINATOR Dependent Habits Tobacco Use/Currently Using : No Smoking Status : Never smoker SAMANTHA CHAVEZ - 07/24/2011 10:29 MULTIMEDIA COORDINATOR Caffeine Use Grid Caffeine Use : Current Type : Soft drinks Frequency : Occasionally SAMANTHA CHAVEZ - 07/24/2011 10:29 MULTIMEDIA COORDINATOR Recreational Drug Use Grid Drug Use : None SAMANTHA CHAVEZ - 07/24/2011 10:29 MULTIMEDIA COORDINATOR Allergy Allergies (Active) Cipro Estimated Onset Date: Unspecified ; Created By: STEVE ANDREA SHOWER SCREEN INSTALLER; Reaction Status: Active ;Category: Drug ; Substance: [...] CNP; Reviewed Date: 12/05/2010 10:10 CDT [facility] Document Id: [id number] MULTIMEDIA COORDINATOR!24 IMEDIA COORDINATOR documented in this encounter Plan of Treatment Not on filedocumented as of this encounter Visit Diagnoses Not on filedocumented in this encounter
--- OUTSIDE RECORDS SUMMARY | 2022-08-05 10:22 | XMS_ITS | Encounter Summary ---
:1960 Author Organization [facility] Address [address] [place] [address] Care Team Providers Name Role Phone Unavailable Primary Care Provider Unavailable Encounter Details Date Type Department Care Team Description 04/04/2013 Hospital Encounter [facility]X [facility] INTERNMED Aranza Ramirez, P.APili-C. [address] [place] [phone] (Wo rk) Social History Tobacco Use Types [...] Chhaya Ramirez - 04/04/2013 12:00 AM CDT [id number] CHIEF COMPLAINT / REASON FOR VISIT Referral completed by Steve Moy CNP for pre gastric bypass surgery. HISTORY OF PRESENT ILLNESS DIET RECALL: Patient is following a general eating pattern. Breakfast today was a big breakfast [employer]. It consisted of eggs, sausage, hash browns [...] own decision. Did recommend thathe contact his conservation educator at [facility] prior to making self-adjustments. He refuses to contact them stating that they do not return his phone calls. Patient also plans to increase his Victoza himself. Did again recommend that he contact [facility] his conservation educator prior to doing that as there [...] EMR. 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 TOBACCO USE: None. ALCOHOL USE: None. [...] currently pursuing using the Learn Program in [facility]. First session is not u ntil the end of April. He thinks it will be group sessions but he is not sure of this. He did see [facility] chemist steroids prior to this appointment and at that [...] and Protein Content of Common Foods - [facility] reference. 2) Nutrition in the Fast Bam, Fast Food Guide. ADMINISTRATIVE BILLING Counseling Time: Spent today with patient 60 minutes. Chhaya Allred R.D., L.D./thai Electronically Signed By: CHHAYA ALLRED On: 04/06/2013 04:45 PM Source: [facility] MHSDOLBEYNONRADSYS Document Id: [id number] documented in this encounter Miscellaneous Notes Miscellaneous [...] in pizza, returned phone call today to [employer] #'s at 10:30 a.m. No answer on either line, unable to leave message. Will try to return call again at later time. Source: [facility] POWERCHART Document Id: [id number] Miscellaneous - Chhaya Ramirez - 04/04/2013 3:26 PM CDT Ambulatory Patient Summary [facility] [address] [place] [address] Visit Information Name: LAZ LUNA [facility] Number: [id number] Current Date: 04/04/2013 15:26:21 Physicians Attending Provider: CHHAYA ALLRED Primary Care Provider: STEVE MOY DRESS DESIGNER Your Medications Here is a list of [...] No Appointments found Your Goals/Additional instructions: Source: [facility] POWERCHART Document Id: [id number] Miscellaneous - Chhaya Ramirez - 04/04/2013 3:26 PM CDT Ambulatory Depart Summary [address] [address] Visit Information Name: CARLYLE LAZ [facility] Number: [id number] Visit Date: 04/04/2013 15:26:20 Attending Provider: CHHAYA ALLRED Primary Care Provider: STEVE MOY DRESS DESIGNER LAZ LUNA has been given the following [...] your provider for clarification. Additional Information: Source: [facility] POWERCHART Document Id: [id number] Miscellaneous - Chhaya Ramirez - 04/04/2013 3:26 PM CDT Adult Commutator Operator Intake/History Adult Commutator Operator Intake/History Entered On: 04/04/2013 15:42 CDT Performed [...] Information Given By : Patient Languages : Vietnamese CHHAYA ALLRED - 04/04/2013 15:26 CDT Subjective [...] CHHAYA ALLRED - 04/04/2013 15:26 CDT Source: [facility] [employer] Document Id: [id number] CDT!37 documented in this encounter Plan of Treatment Not on filedocumented as of this encounter Visit Diagnoses Not on filedocumented in this encounter Additional Health Concerns Assessment Noted Time PHQ-9 Depression Total Score: 18 02/14/2013 9:53 AM CD T documented as of this encounter
--- OUTSIDE RECORDS SUMMARY | 2022-08-05 10:22 | XMS_ITS | Encounter Summary ---
:1960 Author Organization [facility] Address [address] [place] [address] Care Team Providers Name Role Phone Unavailable Primary Care Provider Unavailable Encounter Details Date Type Department Care Team Description 11/18/2011 Hospital Encounter HX [facility] FBHB FAMILYPRA Bhumi Andrea, HAKEEM, C.N.P. [address] [place] [phone] (Wo rk) Social History Tobacco Use Types [...] APRN, C.N.P. - 11/18/2011 12:00 AM CDT [id number] CHIEF COMPLAINT/ REASON FOR VISIT 1. 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 He will continue with Byetta injections twice [...] 3 months SJM/clf Signed Steve Andrea, MSN, PHOTOENGRAVER APPRENTICE, CDE Family Nurse Practitioner Electronically Signed By: STEVE ANDREA CNP On: 11/19/2011 09:04 AM Source: [facility] MHSDOLBEYNONRADSYS Document Id: [id number] documented in this encounter Nursing Notes Steve Andrea APRN, C.N.P. - 11/18/2011 9:28 AM CDT Command Post Craftsman Intake (Adult) Command Post Craftsman Intake (Adult) Entered On: 11/18/2011 9:30 CDT [...] STEVE ANDREA - 11/18/2011 9:28 CDT Source: [employer] Document Id: [id number] CDT!42 documented in this encounter Miscellaneous Notes Miscellaneous - Steve Andrea APRN, C.N.P. - 11/18/2011 9:41 AM CDT Ambulatory Patient Summary [address] [address] Visit Information Name: NOEMÍ LUNA Current Date: [...] No Appointments found Your Goals/Additional instructions: Source: [facility] POWERCHART Document Id: [id number] Miscellaneous - Steve Andrea APRN, C.N.P. - 11/18/2011 9:41 AM CDT Ambulatory Depart Summary [address] [address] Visit Information Name: NOEMÍ LUNA Visit Date: 11/18/2011 09:41:27 Attending Provider: SETVE ANDREA CNP Primary Care Provider: STEVE ANDREA [...] your provider for clarification. Additional Information: Source: [facility] POWERCHART Document Id: [id number] Miscellaneous - Steve Andrea APRN, C.N.P. - 11/18/2011 9:40 AM CDT Quality Measures Quality Measures Entered On: 11/18/2011 9:40 CDT Performed On: 11/18/2011 9:40 CDT by STEVE ANDREA CNP Diabetes Date of Last Foot Exam : 11/18/2011 CDT Date of Last Diabetes Education : 11/18/2011 CDT STEVE ANDREA [facility] - 11/18/2011 9:40 CDT Foot Exam Grid Left foot exam Right foot exam Dorsalis Pedis Pulse : Normal Normal Capillary Refill : Less than 3 seconds Less than 3 seconds 10 gm Monofilament Sensation Check : Intact Intact STEVE ANDREA Jim [facility] - 11/18/2011 9:40 CDT STEVE ANDREA [facility] - 11/18/2011 9:40 CDT Source: [facility] POWERCHART Document Id: [id number] CDT!13 Miscellaneous - Marcial Chavez L.P.N. - 11/18/2011 9:08 AM CDT Health Assessment Health Assessment Entered On: 11/18/2011 9:08 CDT Performed On: 11/18/2011 9:08 CDT by MARCIAL CHAVEZ Health Assessment Complete Health Assessment Complete or Modified : Annual Health Assessment Annual Health Assessment Completed : Yes MARCIAL CHAVEZ - 11/18/2011 9:08 CDT Nutrition Nutrition Risk Factors by History Adult : None MARCIAL CHVAEZ - 11/18/2011 9:08 CDT Functional Current Daily [...] explanation MARCIAL CHAVEZ 11/18/2011 9:08 CDT Source: [facility] POWERCHART Document Id: [id number] CDT!28 Miscellaneous - Marcial Chavez L.P.N. - 11/18/2011 9:04 AM CDT Adult Workplace Relations Adviser Intake/History Adult Workplace Relations Adviser Intake/History Entered On: 11/18/2011 9:07 CDT Performed [...] Smoking Status : Never smoker SCOTT MARCIAL FLOYD - 11/18/2011 9:04 CDT Caffeine Use Grid [...] CNP; Reviewed Date: 12/05/2010 10:10 CDT Source: [facility] WORKING OUT WORKSCHART Document Id: [id number] CDT!27 documented in this encounter Plan of [...]
--- OUTSIDE RECORDS SUMMARY | 2022-08-05 10:22 | XMS_ITS | Encounter Summary ---
:1960 Author Organization [facility] Address [address] [place] [address] Care Team Providers Name Role Phone Unavailable Primary Care Provider Unavailable Encounter Details Date Type Department Care Team Description 03/31/2011 Hospital Encounter [facility] Tye Mooney Jr., M.D. [address], [place] [phone] (Wo rk) Social History [...] Performed by: Dami Sphere: Pl CYL: -0.50 Rhodelia: 180 ADD: +1.50 Prism: 20/20 VALE CRAIG - 03/31/2011 11:13 CDT Left Eye Manifest Grid Date: 03/31/2011 CDT Performed by: Dami Sphere: Pl CYL: -0.25 Rhodelia: 180 ADD: +1.50 Prism: 20/20 VALE CRAIG [...] drop Phenylephrine 2.5% Eye Drops Time: 11:21 WATER HYDRANT INSTALLER Tropicamide 1% Eye Drops Eye: Both eyes Tropicamide 1% Eye Drops Amount: One drop Tropicamide 1% Eye Drops Time: 11:21 WATER HYDRANT INSTALLER VALE CRAIG - 03/31/2011 11:13 CDT Ocular [...] MOONEY MD - 03/31/2011 11:45 CDT Source: [employer] Document Id: [id number] CDT!37 documented in this encounter Nursing Notes Radha Graham L.PPiliNPili - 06/12/2011 11:29 AM CDT Diabetic Call Called and spoke with patient's who states that they are working through some issues with their insurance and once those are straightened out they will call and schedule the lab and blood pressure check. Electronically Signed By: RADHA GRAHAM LPN On: 06/12/2011 11:31 am Source: [employer] Document Id: [id number] documented in this encounter Miscellaneous Notes Miscellaneous - Mary Diaz L.PPiliNPili - 03/31/2011 1:57 PM CDT Quality Measures Quality Measures Entered On: 04/03/2011 13:58 CDT Performed On: 03/31/2011 13:57 CDT by MARY DIAZ LPN Diabetes Date of Last Eye Exam: 03/31/2011 CDT MARY DIAZ LPN - 04/03/2011 13:57 CDT Source: [employer] Document Id: [id number] CDT!3 Miscellaneous - Vale Craig, C.O.T. - 03/31/2011 11:23 AM CDT Ambulatory Vitals Height Weight Ambulatory Vitals Height Weight Entered On: 03/31/2011 11:25 CDT Performed On: 03/31/2011 11:23 CDT by VALE CRAIG Vitals/Ht/Wt Systolic Blood Pressure: 130mmHg Diastolic Blood Pressure: 90mmHg (HI) NIBP Mean: 103mmHg BP Location: Right upper extremity VALE CRAIG - 03/31/2011 11:23 CDT Source: [employer] Document Id: [id number] CDT!6 documented in this encounter Plan of Treatment Not on filedocumented as of this encounter Visit Diagnoses Not on filedocumented in this encounter
--- OUTSIDE RECORDS SUMMARY | 2022-08-05 10:22 | XMS_ITS | Encounter Summary ---
:[address] [facility] Address [address] [place] [address] Care Team Providers Name Role Phone Unavailable Primary Care Provider Unavailable Encounter Details Date Type Department Care Team Description 03/19/2011 Hospital Encounter HX [facility] Steve Andrea, Soumya HERRERA, C.N.P. [address] [place], [place] [phone] (Wo rk) Social History Tobacco Use Types Packs/Day Years Used Date Smoking Tobacco: Never Assessed Sex Assigned at Date Recorded Not on file documented as of this encounter Progress Notes Steve Andrea, MEETING COORDINATOR, C.N.P. - 03/19/2011 12:00 AM CDT [id number] CHIEF COMPLAINT/ REASON FOR VISIT Diabetes type [...] regular exercise program. Diabetes education done see primary special educator intake form in the EMR and I will mail him laboratory results STEVEN/clrenee Signed Steve Andrea, MSN, BUSINESS ADVISOR, CDE Family Nurse Practitioner Electronically Signed By: STEVE ANDREA BUSINESS ADVISOR On: 03/20/2011 12:48 PM Source: [facility] MHSDOLBEYNONRADSYS Document Id: [id number] documented in this encounter Plan of Treatment Not on filedocumented as of this encounter Visit Diagnoses Not on filedocumented in this encounter
--- OUTSIDE RECORDS SUMMARY | 2022-08-05 10:23 | XMS_ITS | Encounter Summary ---
:1960 Author Organization [facility] Address [address] [place] [address] Care Team Providers Name Role Phone Unavailable [...]
--- OUTSIDE RECORDS SUMMARY | 2022-08-05 10:23 | XMS_ITS | Encounter Summary ---
:1960 Author Organization [facility] Address [address] [place] [address] Care Team Providers Name Role Phone Unavailable Primary Care Provider Unavailable Encounter Details Date Type Department Care Team Description 11/12/2006 Hospital Encounter HX [facility] Vishal Suarez Jr., M.D. [address] [place] [phone] (Wo rk) Social History Tobacco Use Types Packs/Day Years Used Date Smoking Tobacco: Never Assessed Sex Assigned at Date Recorded Not on file documented as of this encounter Plan of Treatment Not on filedocumented as of this encounter Visit Diagnoses Not on filedocumented in this encounter
--- OUTSIDE RECORDS SUMMARY | 2022-08-05 10:23 | XMS_ITS | Encounter Summary ---
:1960 Author Organization [facility] Address [address] [place] [address] Care Team Providers Name Role Phone Unavailable Primary Care Provider Unavailable Encounter Details Date Type Department Care Team Description 11/29/2004 Hospital Encounter HX [facility] Vishal Suarez Jr., M.D. [address] [place] [phone] (Wo rk) Social History Tobacco Use Types Packs/Day Years Used Date Smoking Tobacco: Never Assessed Sex Assigned at Date Recorded Not on file documented as of this encounter Plan of Treatment Not on filedocumented as of this encounter Visit Diagnoses Not on filedocumented in this encounter
--- OUTSIDE RECORDS SUMMARY | 2022-08-05 10:23 | XMS_ITS | Encounter Summary ---
:1960 Author Organization [facility] Address [address] [place] [address] Care Team Providers Name Role Phone Unavailable Primary Care Provider Unavailable Encounter Details Date Type Department Care Team Description 11/28/2005 Hospital Encounter HX [facility] Vishal Suarez Jr., M.D. [address] [place] [phone] (Wo rk) Social History Tobacco Use Types Packs/Day Years Used Date Smoking Tobacco: Never Assessed Sex Assigned at Date Recorded Not on file documented as of this encounter Plan of Treatment Not on filedocumented as of this encounter Visit Diagnoses Not on filedocumented in this encounter
--- OUTSIDE RECORDS SUMMARY | 2022-08-05 10:23 | XMS_ITS | Encounter Summary ---
:1960 Author Organization [facility] Address [address] [place] [address] Care Team Providers Name Role Phone Unavailable Primary Care Provider Unavailable Encounter Details Date Type Department Care Team Description 02/15/2010 Hospital Encounter [facility]X [facility]ILY[facility] Bhumi Andrea, HAKEEM, C.N.P. [address] [place] [phone] (Wo rk) Social History Tobacco Use Types Packs/Day Years Used Date Smoking Tobacco: Never Assessed Sex Assigned at Date Recorded Not on file documented as of this encounter Progress Notes Steve Andrea, HAKEEM, C.N.P. - 02/15/2010 12:00 AM CDT [id number] IMPRESSION/REPORT/PLAN 1. Diabetes type 2. 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 SJM/clf Signed Steve Andrea, UMU, COURT ABSTRACTOR, CDE Family Nurse Practitioner Electronically Signed By:STEVE ANDREA CNP On 02/20/2010 09:33 AM Source: [facility] MHSDOLBEYNONRADSYS Document Id: [id number] documented in this encounter Nursing Notes Steve [...] ANDREA CNP - 02/15/2010 10:24 CDT Source: [facility] POWERCHART Document Id: [id number] CDT!10 Conversion, Historical Provider Ser - 02/15/2010 9:46 AM CDT Diabetes Nurse Intake Diabetes Nurse Intake Entered On: 02/15/2010 9:47 CDT Performed On: 02/15/2010 9:46 CDT by BEBO PYLE LPN Diabetes Nurse Intake Date of Last Foot Exam: 12/08/2009 CDT Date of Last Eye Exam: 11/02/2009 MOTOR COACH BUS DRIVER BEBO PYLE LPN - 02/15/2010 9:46 CDT Source: [facility] POWERCHART Document Id: [id number] CDT!4 documented in this encounter Miscellaneous Notes [...] 02/15/2010 9:45 CDT Psychosocial Domestic Concerns: None EBBO PYLE LPN - 02/15/2010 9:45 CDT Advance Directive Advanced Directives: No BEBO PYLE LPN - 02/15/2010 9:45 CDT Educ Needs Learning Style Preference Adult Grid Patient: Verbal explanation Family: Verbal explanation BEBO PYLE LPN - 02/15/2010 9:45 CDT Source: [employer] Document Id: [id number] CDT!24 Miscellaneous - Conversion, Historical Provider Ser - 02/15/2010 9:44 AM CDT Adult Technical Fellow Intake/History Adult Technical Fellow Intake/History Entered On: 02/15/2010 9:45 CDT Performed [...] Frequency: Occasionally BEBO PYLE LPN - 02/15/2010 9:44 CDT Recreational Drug Use Grid Drug Use: None BEBO PYLE LPN - 02/15/2010 9:44 CDT Allergies Allergies (Active) Cipro Estimated Onset Date: Unspecified ; Created By: STEVE ANDREA CNP; Reaction Status: Active ;Category: Drug ; Substance: Cipro ; Type: Allergy ; Updated By: STEVE ANDREA CNP; Reviewed Date: 12/28/2009 9:39 CDT Source: [employer] Document Id: [id number] CDT!24 documented in this encounter Plan of Treatment Not on filedocumented as of this encounter Visit Diagnoses Not on filedocumented in this encounter
--- OUTSIDE RECORDS SUMMARY | 2022-08-05 10:23 | XMS_ITS | Encounter Summary ---
:1960 Author Organization [facility] Address [address] [place] [address] Care Team Providers Name Role Phone Unavailable Primary Care Provider Unavailable Encounter Details Date Type Department Care Team Description 12/28/2009 Hospital Encounter HX [facility] FAMILYPR[facility] Bhumi Andrea, HAKEEM, C.N.P. [address] [place] [phone] (Wo rk) Social History Tobacco Use Types Packs/Day Years Used Date Smoking Tobacco: Never Assessed Sex Assigned at Date Recorded Not on file documented as of this encounter Progress Notes Steve Andrea APRN, C.N.P. - 12/28/2009 12:00 AM CDT [id number] IMPRESSION/REPORT/PLAN 1. Cellulitis left leg resolving. Continue [...] with monofilament. SJM/clf Signed Steve Andrea, MSN, MUFFLE OPERATOR, CDE Family Nurse Practitioner Electronically Signed By:STEVE ANDREA CNP On 12/31/2009 01:12 PM Source: [facility] MHSDOLBEYNONRADSYS Document Id: [id number] documented in this encounter Miscellaneous Notes Miscellaneous - Steve Andrea APRN, C.N.P. - 12/28/2009 1:40 PM CDT Ambulatory Depart Summary [address] [address] Visit Information Name: LAZ LUNA Current Date: [...] to the patient and/or family, guardian/caregiver. Source: [facility] POWERCHART Document Id: [id number] Electronically signed by Conversion, [facility] Clinical Trial Assistant [id number] at 02/09/2017 4:10 AM CDT Miscellaneous - Conversion, Historical Provider Ser - 12/28/2009 9:21 AM CDT Adult Potato Chip Frier Intake/History Adult Potato Chip Frier Intake/History Entered On: 12/28/2009 9:23 CDT Performed [...] ANDREA CNP - 12/28/2009 13:41 CDT Source: [employer] Document Id: [id number] CDT!11 documented in this encounter Plan of Treatment Not on filedocumented as of this encounter Visit Diagnoses Not on filedocumented in this encounter
--- OUTSIDE RECORDS SUMMARY | 2022-08-05 10:23 | XMS_ITS | Encounter Summary ---
:1960 Author Organization [facility] Address [address] [place] [address] Care Team Providers Name Role Phone Unavailable Primary Care Provider Unavailable Encounter Details Date Type Department Care Team Description 07/14/2008 Hospital Encounter HX [facility] Vishal Suarez Jr., M.D. [address] [place] [address] (Wo rk) Social History Tobacco Use Types Packs/Day Years Used Date Smoking Tobacco: Never Assessed Sex Assigned at Date Recorded Not on file documented as of this encounter Plan of Treatment Not on filedocumented as of this encounter Visit Diagnoses Not on filedocumented in this encounter
--- OUTSIDE RECORDS SUMMARY | 2022-08-05 10:23 | XMS_ITS | Encounter Summary ---
:1960 Author Organization [facility] Address [address] [place] [address] Care Team Providers Name Role Phone Unavailable Primary Care Provider Unavailable Encounter Details Date Type Department Care Team Description 11/02/2009 Hospital Encounter [facility]X [facility] Vishal Suarez Jr., M.D. [address] [phone] (Wo rk) Social History Tobacco Use Types Packs/Day Years Used Date Smoking Tobacco: Never Assessed Sex Assigned at Date Recorded Not on file documented as of this encounter Plan of Treatment Not on filedocumented as of this encounter Visit Diagnoses Not on filedocumented in this encounter
--- OUTSIDE RECORDS SUMMARY | 2022-08-05 10:23 | XMS_ITS | Encounter Summary ---
:1960 Author Organization [facility] Address [address] [place] [address] Care Team Providers Name Role Phone Unavailable Primary Care Provider Unavailable Encounter Details Date Type Department Care Team Description 02/26/2010 Hospital Encounter HX [facility] LAB Cindy Moy, Soumya PRN, C.N.P. [address] [place], [place] [phone] (Wo rk) Social History Tobacco Use Types Packs/Day Years Used Date Smoking Tobacco: Never Assessed Sex Assigned at Date Recorded Not on file documented as of this encounter Plan of Treatment Not on filedocumented as of this encounter Visit Diagnoses Not on filedocumented in this encounter
--- OUTSIDE RECORDS SUMMARY | 2022-08-05 10:23 | XMS_ITS | Encounter Summary ---
:1960 Author Organization [facility] Address [address] [place] [address] Care Team Providers Name Role Phone Unavailable Primary Care Provider Unavailable Encounter Details Date Type Department Care Team Description 04/08/2010 Hospital Encounter HX [facility] FAMILYPRA Bhumi Andrea, HAKEEM, C.N.P. [address] [place] [phone] (Wo rk) Social History Tobacco Use Types Packs/Day Years Used Date Smoking Tobacco: Never Assessed Sex Assigned at Date Recorded Not on file documented as of this encounter Progress Notes Steve Andrea APRN, C.N.P. - 04/08/2010 12:00 AM CDT [id number] IMPRESSION/REPORT/PLAN 1. Kidney stone per CT scan. [...] hepatosplenomegaly. SJM/clf Signed Steve Fernandez. Farzaneh, MSN, HIGH SCHOOL SOCIAL SCIENCE TEACHER, CDE Family Nurse Practitioner Electronically Signed By:STEVE ANDREA CNP On 04/10/2010 01:08 PM Source: [facility] MHSDOLBEYNONRADSYFeliz Document Id: [id number] documented in this encounter Nursing Notes Conversion, [...] PYLE LPN On 04/23/2010 09:18 am Source: [facility] POWERCHART Document Id: [id number] Steve Andrea APRN, C.N.P. - 04/08/2010 12:20 PM CDT Flatbed Owner Operator Intake (Adult) Document Has Been Updated Flatbed Owner Operator Intake (Adult) Entered On: 04/08/2010 12:22 CDT [...] CDT BRIT DIAZ LPN - 09/04/2010 11:43 FIREWORKS ASSEMBLY SUPERVISOR Exercise Type: None Time Spent With Patient: 15 Minutes STEVE ANDREA CNP - 04/08/2010 12:20 CDT Education Diabetes Education Grid Topics: Disease process, Medications/Effectiveness - Oral Agents, Monitoring - Blood Glucose, Using Results - Blood Glucose, Chronic Complications - Preventing Individuals Taught: Patient Barriers to Learning: None evident Teaching Method: Explanation Teaching Evaluation: Verbalizes understanding STEVE ANDREA CNP - 04/08/2010 12:20 CDT Source: [facility] [employer] Document Id: [id number] FIREWORKS ASSEMBLY SUPERVISOR!4 WORKS ASSEMBLY SUPERVISOR documented in this encounter Miscellaneous Notes Miscellaneous - Steve Andrea APRN, C.N.P. - 04/08/2010 12:24 PM CDT Ambulatory Depart Summary [address] [address] Visit Information Name: NOEMÍ LUNA Current Date: 04/08/2010 12:24:00 Primary Care Provider: STEVE ANDREA CNP [id number] NOEMÍ LUNA has been given the following [...] day emollients, topical (Eucerin topical cream) 1 janine Topical once a day furosemide (furosemide 80 mg oral tablet) 40 mg Oral once a day aspirin (aspirin 325 mg oral tablet) 1 tab(s) Oral once a day Additional Information: Yes - Current list of reconciled medications is provided and explained to the patient and/or family, guardian/caregiver. Source: [facility] POWERCHART Document Id: [id number] Electronically signed by Dayami, [facility] [employer] Portal Consultant [id number] at 02/09/2017 1:31 AM CDT Miscellaneous - Conversion, Historical Provider Ser - 04/08/2010 11:50 AM CDT Adult It Help Desk Associate Intake/History Adult It Help Desk Associate Intake/History Entered On: 04/08/2010 11:51 CDT Performed [...] Weight Clinic: 154.50kg BEBO PYLE MARÍA ELENA LATH HAND - 04/08/2010 11:50 CDT Subjective Pain Symptoms: No BEBO PYLE MARÍA ELENA ZURITA - 04/08/2010 11:50 CDT Dependent Habits Tobacco Use/Currently Using: No Alcohol Use: No BEBO PYLE MARÍA ELENA ZURITA - 04/08/2010 11:50 CDT Caffeine Use Grid Caffeine Use: Current Type: Soft drinks Frequency: Occasionally LASHANDABEBO MARÍA ELENA LATH HAND - 04/08/2010 11:50 CDT Recreational Drug Use Grid Drug Use: None LASHANDABEBO MARÍA ELENA LATH HAND - 04/08/2010 11:50 CDT Allergies Allergies (Active) Cipro Estimated Onset Date: Unspecified ; Created By: STEVE ANDREA CNP; Reaction Status: Active ;Category: Drug ; Substance: Cipro ; Type: Allergy ; Updated By: STEVE ANDREA CNP; Reviewed Date: 12/28/2009 9:39 CDT Source: [employer] Document Id: [id number] CDT!24 documented in this encounter Plan of Treatment Not on filedocumented as of this encounter Visit Diagnoses Not on filedocumented in this encounter
--- OUTSIDE RECORDS SUMMARY | 2022-08-05 10:28 | XMS_ITS | Encounter Summary ---
:1960 Author Organization [facility] Address [address] [place] [address] Care Team Providers Name Role Phone Ladan Song Primary Care Provider Reason for Visit Reason Comments Consult Bariatric Consult Encounter Details Date Type Department Care Team Description 10/12/2014 Office Visit Surgery Clinic Joy Núñez Morbid obesity (H) Tigist Mcmullen (Primary Dx) [address] 1[address] Floor, Clinic [address] [place] [address] (Wo rk) [address] [phone] Social History Tobacco Use Types Packs/Day Years Used Date Smoking Tobacco: Never Alcohol Use Standard Drinks/Week Comments No 0 (1 standard drink = 0.6 oz pure alcoho l) Sex Assigned at Date Recorded Not on file documented as of this encounter Last Filed Vital Signs Vital Sign Reading Time Taken Comments Blood Pressure 148/82 10/12/2014 11:45 AM LUNG SPLITTER Pulse 51 10/12/2014 11:45 AM LUNG SPLITTER Temperature - - Respiratory Rate - - Oxygen Saturation 96% 10/12/2014 11:45 AM LUNG SPLITTER Inhaled Oxygen Concentration - - Weight 152.5 kg (336 lb 1.6 oz) 10/12/2014 11:45 AM LUNG SPLITTER Height 182.9 cm (6') 10/12/2014 11:45 AM LUNG SPLITTER Body Mass Index 45.58 10/12/2014 11:45 AM LUNG SPLITTER documented in this encounter Patient Instructions Patient InstructionsJoy Núñez PA-C - 10/12/2014 1:55 PM LUNG SPLITTER PREOPERATIVE WEIGHT LOSS SURGERY TASKLIST Tentative surgery: sleeve Approximate Month and Year: Unknown depending on how much of his [place] visits are transferrable Surgeon: Lien Khanna Insurance Coverage: BC Exclusions: None __x___To view Seminar. To sign Research Consent Form. __x___To register on [employer]. __x___To receive Decision Making Handout to read. Letter of support from primary care provider. Labs ordered and treated by primary care provider, results faxed to us. See Surgeon if interested in having surgery here at the [facility] Lose 5 lbs prior to surgery from today`s weight of 336 lbs. Per patient he has already lost [address] [facility]. Will confirm when receive records Exercise: [...] you have completed the psychological evaluation, required subsorter visits and are within5 lbs of your goal weight, call the route clerk to finalize the surgery date and schedule [...] to surgery, call Nicki Bar RN at [phone]. ___Fax #: [phone] (to send preoperative documents). ___Fax #: [phone] (to send FMLA or return to work forms). ___Scheduler for Dr Emmanuel is Nicole. . . ___Scheduler for Dr Salazar is Amol. . . ___Call the Call Center at [phone] for appointment scheduling and nurse help after surgery. SPLITTER documented in this encounter Progress Notes Joy Núñez PA-C - 10/12/2014 1:18 PM CST Department of Surgery Weight Loss Surgery [facility] [place] Mail Code [address] [place] [address] Date: October 12, 2014 New Bariatric Surgery Consultation RE: Laz Luna MR#: [id number] : 1960 Requesting provider: Cintia Elizondo Chief [...] success with weight loss attempts, such as [facility] program. Over the years he has had a maximum weight loss of 60 lbs. The heaviest weight attained by patient is 400 lbs. No previous weight loss surgery. He has gone through the program and per the patient he is set up to have surgery at [place] by the end of November. He states [...] on file ??? 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 He reports seeing the [facility] and being all ready for surgery. He [...] the end of November. Get records from [place]. Approximate surgery month: November 2014 possibly if all complete and candidate for surgery. Seminar watched: yes Research consent signed: no, need to do at [facility] visit Decision making handout given to patient at NBS: yes Please check you insurance company for an exclusions Letter from PCP and preop labs Viner Operator visits monthly for 6 months. (saw RD today and may at the [facility] already) Psychological evaluation, get from [facility] Consultations: cardiology: need from [facility] See surgeon possibly after reviewing records from [place] Required weight loss: 5 lbs prior to surgery from today's weight of 336 lbs 1.6 oz. Must be within 5lbs from your required weight at your 3 week preop weight check in order to keep your surgery date. (Per patient he has already gone from 352 to 336 today at the [facility]) If this is accurate per his [place] records we will have him lose 5 more pounds from 336 lbs. Goal 331 lbs. 3 weeks before surgery you will go to a pre-op class, anesthesia clinic and nurse clinic visit. These will be scheduled by our schedulers. If any questions prior to surgery, call Nicki Bar RN at [phone]. Call the Call Center at [phone] for appointment scheduling and nurse help after surgery. Sincerely, Joy Núñez PA-C [phone] SPLITTER documented in this encounter Nursing Notes Shanice [...] Shanice Noe; October 12, 2014; 11:48 AM??) SPLITTER documented in this encounter Miscellaneous Notes Addendum Note - Shanice Noe CMA - 10/20/2014 12:26 PM LUNG SPLITTER Addended by: SHANICE NOE on: 10/20/2014 12:26 PM Modules accepted: Medications SPLITTER documented in this encounter Plan of Treatment Not on filedocumented as of this encounter Visit Diagnoses Diagnosis Morbid obesity (H) - Primary Morbid obesity documented in this encounter Care Teams Loader Helper Sorting Yard Relationship Specialty Start Date End Date Ladan Song PCP - General 09/29/14 [facility] [address] [place] [address] [address] [place] [address] documented as of this encounter
--- OUTSIDE RECORDS SUMMARY | 2022-08-05 10:28 | XMS_ITS | Encounter Summary ---
:1960 Author Organization [facility] Address [address] [place] [address] Care Team Providers Name Role Phone Unavailable Primary Care Provider Unavailable Encounter Details Date Type Department Care Team Description 02/19/2010 Office Visit-[facility] INTERFACE [facility] DEPT Provider, [facility] Nurs e Social History Tobacco Use Types Packs/Day Years Used Date Smoking Tobacco: Never Assessed Sex Assigned at Date Recorded Not on file documented as of this encounter Progress Notes Provider, [facility] Nurse - 02/19/2010 1:39 PM CDT Producer: Mildred Linares Status: Final - Signature Encounter: [...] results and visit notes form [facility]. [facility] #[phone] please call patient. [phone] Thanks Tonie faxed to [phone] mildred Electronically signed by:Mildred Linares L.P.N. Feb 19 2010 1:39PM MIDDLE SCHOOL TECHNOLOGY TEACHER documented in this encounter Plan of Treatment Not on filedocumented as of this encounter Visit Diagnoses Not on filedocumented in this encounter
--- OUTSIDE RECORDS SUMMARY | 2022-08-05 10:28 | XMS_ITS | Encounter Summary ---
:1960 Author Organization [facility] Address [address] [place] [address] Care Team Providers Name Role Phone SongLadan [...] BPH (benign prostatic hyperplasia); [facility] Erectile dysfunction due to diseases cla ssified elsewhere [facility] [address] [place], [place] [address] [address] [address]LO[address], [address] [place] [address] (Work) [place] [address] [place] [address] Social History Tobacco Use Types [...] by PCP - Ladan Song at the [facility]. He has numerous urologic concerns today as listed above. His last visit with [facility] Urology was with Dr. Heart in December [...] least since 2003 when he his from [facility]. His sensation is relatively normal and [...] unsure what type SOCIAL HISTORY: - from [facility] 2003 - no intercourse. 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 Never smoked. reports that he has never [...] Signature PSA 1.48 0 - 4 ug/L [facility] Specimen Anatomical Collection Method Collection Time Receive d Time (Source) Location / / Volume Laterality Blood specimen 04/10/2015 2:06 PM 015 2:07 (specimen) CDT PM CDT [facility] - BLOOD ORDERABLES Performing Organization Address City/Special Care Hospital/ZIP Code Phon e Number [facility] [address] (ABNORMAL) Basic metabolic panel (04/10/2015 2:06 PM CDT) [facility] gist Method Time Signature Sodium 140 133 - 144 [facility] mmol/L [facility] Potassium 3.9 3.4 - 5.3 [facility] mmol/L [facility] Chloride 107 94 - 109 [facility] mmol/L [facility] Carbon Dioxide 23 20 - 32 [facility] mmol/L [facility] Anion Gap 9 3 - 14 [facility] mmol/L [facility] Glucose 122 (H) 70 - 99 [facility] mg/dL [facility] Urea Nitrogen 16 7 - 30 [facility] mg/dL [facility] Creatinine 0.82 0.66 - [facility] 1.25 [facility] mg/dL [facility] GFR Estimate >90 >60 [facility] Non GFR Calc mL/min/1. [facility] 7m2 [facility] GFR Estimate >90 >60 [facility] If Black GFR Calc mL/min/1. [place] [facility] 7m2 [facility] Calcium 9.2 8.5 - [facility] 10.1 [facility] mg/dL [facility] Specimen Anatomical Collection Method Collection Time Receive d Time (Source) Location / / Volume Laterality Blood specimen 04/10/2015 2:06 PM 015 2:07 (specimen) CDT PM CDT Y[facility] - BLOOD ORDERABLES Performing Organization Address City/State/ZIP Code Phon e Number [facility] [address] [place] [address] [facility] documented in this encounter Visit Diagnoses Diagnosis [...] organs documented in this encounter Care Teams Behavioral Health Case Manager Relationship Specialty Start Date End Date Song, Ladan PCP - General 09/29/14 [facility] [address] [facility] [address] [place], [place] [address] Yulisa Bernabe PA Physician Program Proposals Coordinator Physician Program Proposals Coordinator 03/16/[address] [place] [address] [address] [place], [place] [address] documented as of this encounter
--- OUTSIDE RECORDS SUMMARY | 2022-08-05 10:28 | XMS_ITS | Encounter Summary ---
:1960 Author Organization [facility] Address [address] [place] [address] Care Team Providers Name Role Phone Ladan Song Primary Care Provider Reason for Visit Reason Comments Clinic Care Coordination - Follow-up Encounter Details Date Type Department Care Team Description 10/28/2014 Documentation Only Surgery Clinic [facility] Care Alan Fountain RN Coordination - n Building [address] [place] [address] Follow-up 1st Floor, Clinic [facility] [id number] [address] [phone] [place], [place] (Work) [address] Social History Tobacco Use [...] on filedocumented in this encounter Care Teams Pharmacy Associate Relationship Specialty Start Date End Date Ladan Song PCP - General 09/29/14 [facility] [address] [place] [address] [address] [place], [place] [id number] documented as of this encounter
--- OUTSIDE RECORDS SUMMARY | 2022-08-05 10:28 | XMS_ITS | Encounter Summary ---
:1960 Author Organization [facility] Address [address] [place] [address] Care Team Providers Name Role Phone DuncanLadan [...] on filedocumented in this encounter Care Teams Compensator Worker Relationship Specialty Start Date End Date Ladan Song PCP - General 09/29/14 [facility] [address] [place] [address] [place] [address] Yulisa Bernabe PA Physician Sheet Metal Superintendent Physician Sheet Metal Superintendent 03/16/15 [address] [facility] [address] [place] [address] documented as of this encounter
--- OUTSIDE RECORDS SUMMARY | 2022-08-05 10:28 | XMS_ITS | Encounter Summary ---
:1960 Author Organization [place] Address [address] [place] [address] Care Team Providers Name Role Phone Unavailable Primary Care Provider Unavailable Encounter Details Date Type Department Care Team Description 07/05/2013 Psyche [facility] Health Asp[place]ebas Unspecified adjustment System in [place] [facility] [place] reaction (Primary Dx) Psychology [address] [place] [address] [place] [address] [phone] Social History Tobacco Use Types Packs/Day Years Used Date Smoking Tobacco: Never Assessed Sex Assigned at Date Recorded Not on file documented as of this encounter Plan of Treatment Not on filedocumented as of this encounter Visit Diagnoses Diagnosis Unspecified adjustment reaction - Primar y documented in this encounter
--- OUTSIDE RECORDS SUMMARY | 2022-08-05 10:28 | XMS_ITS | Encounter Summary ---
:1960 Author Organization [place] Address [address] [place] [address] Care Team Providers Name Role Phone Duncan [...] on filedocumented in this encounter Care Teams Outer Diameter Grinder Tool Relationship Specialty Start Date End Date Ladan Song PCP - General 09/29/14 [facility] [address] [place] [address] [place] [address] Yulisa Bernabe PA Physician Scalloper Physician Scalloper 03/16/15 420 [facility] [address] [place], [place] [address] documented as of this encounter
--- OUTSIDE RECORDS SUMMARY | 2022-08-05 10:28 | XMS_ITS | Encounter Summary ---
:1960 Author Organization [place] Address [address] [place] [address] Care Team Providers Name Role Phone Unavailable Primary Care Provider Unavailable Encounter Details Date Type Department Care Team Description 07/12/2013 Office Visit [facility] ChrisMehreen ed adjustment System in [place] HAKEEM Roberson reaction (Primary Dx) Psychiatry [address] [address] Social History Tobacco Use Types Packs/Day Years [...] 154.2 kg (340 lb) 07/14/2013 2:30 PM CRITICAL CARE PHYSICIAN Height - - Body Mass Index - - documented in this encounter Progress Notes Luz Lindsay - 07/18/2013 5:25 AM CST BRIEF DISCUSSION NOTE: Time spent with client approximately 45 - 50 minutes. This was our 6th session for the [facility] Program. The participant was present today. This session primarily focused on negative and positive self talk. Other additional topics were unrealistic expectations, inflexibility, all or nothing thinking, depression, anxiety, stress and emotional eating. Ed weighed in today at 340.7 pounds. Ed was invited to join the group next week. AM:phil D: 07-14-13 Mehreen Perez, UNDERWATER HUNTER TRAPPER T: 07-18-13 ICAL CARE PHYSICIAN documented in this encounter Plan of Treatment Not on filedocumented as of this encounter Visit Diagnoses Diagnosis Unspecified adjustment reaction - Primar y documented in this encounter
--- OUTSIDE RECORDS SUMMARY | 2022-08-05 10:28 | XMS_ITS | Encounter Summary ---
:1960 Author Organization [place] Address [address] [place] [address] Care Team Providers Name Role Phone Unavailable Primary Care Provider Unavailable Encounter Details Date Type Department Care Team Description 05/03/2013 Psyche [facility] AspSebas Unspecified adjustment System in [place] [facility] [place] reaction (Primary Dx) Psychology [address] [place] [address] [place] [address] [phone] Social History Tobacco Use Types Packs/Day Years [...]
--- OUTSIDE RECORDS SUMMARY | 2022-08-05 10:28 | XMS_ITS | Encounter Summary ---
:1960 Author Organization [place] Address [address] [place] [address] Care Team Providers Name Role Phone Ladan [...] PA Done (New patient AND UROLOGIC CANCERS [facility] Urology consult for testicular [facility] [address] [facility]. ) 4TH FLOOR, [address], [facility] [address] [place] [address] Social History Tobacco Use Types Packs/Day Years Used Date Smoking Tobacco: Never Alcohol Use Standard Drinks/Week Comments No 0 (1 standard drink = 0.6 oz pure alcoho l) Sex Assigned at Date Recorded Not on file documented as of this encounter Plan of Treatment Not on filedocumented as of this encounter Visit Diagnoses Not on filedocumented in this encounter Care Teams Property And Equipment Clerk Relationship Specialty Start Date End Date Ladan Song PCP - General 09/29/14 [facility] [address] [place] [address] [place] [address] Yulisa Bernabe PA Physician Pvc Loader Physician Pvc Loader 03/16/[address] [place] [address] documented as of this encounter
--- OUTSIDE RECORDS SUMMARY | 2022-08-05 10:28 | XMS_ITS | Encounter Summary ---
:1960 Author Organization [place] Address [address] [place] [address] Care Team Providers Name Role Phone Ladan Song Primary Care Provider Encounter Details Date Type Department Care Team Description 10/12/2014 [facility] Crissy Amador Visit [address]phon Nolen [address] [facility] 1st Floor, Clinic 1E [address] [facility] [address] [facility] [address] [place] [address] [phone] Social History Tobacco Use Types Packs/Day Years [...] restaurant; fast food occasionally Types of Foods: Kuwaiti salad; [employer] hamburger Physical Activity: Types of [...] 60 minutes. Crissy Donaldson, ROBERT, LD, CLT ER PAINTER documented in this encounter Plan of Treatment Not on filedocumented as of this encounter Visit Diagnoses Not on filedocumented in this encounter Care Teams Intermodal Dispatcher Relationship Specialty Start Date End Date Ldaan Song PCP - General 09/29/14 [facility] [address] [place] [address] [place] [address] documented as of this encounter
--- OUTSIDE RECORDS SUMMARY | 2022-08-05 10:28 | XMS_ITS | Encounter Summary ---
:1960 Author Organization [place] Address [facility] [place] [address] Care Team Providers Name Role Phone Unavailable Primary Care Provider Unavailable Encounter Details Date Type Department Care Team Description 12/26/[address] [facility] Jarvis Heart MD [place] [address] [facility] [address] [place], [place] [address] [phone] Social History Tobacco Use Types Packs/Day Years [...]
--- OUTSIDE RECORDS SUMMARY | 2022-08-05 10:28 | XMS_ITS | Clinical Summary ---
:1960 Author Organization [place] Address [address] [place] [address] Care Team Providers Name Role Phone Ladan [...] Comments Blood Pressure 142/80 09/21/2018 10:15 AM VENEER TRIMMER Pulse 78 09/21/2018 10:15 AM VENEER TRIMMER Temperature - - Respiratory Rate - - Oxygen Saturation 96% 10/12/2014 11:45 AM VENEER TRIMMER Inhaled Oxygen Concentration - - Weight 80.7 kg (178 lb) 09/21/2018 10:15 AM VENEER TRIMMER per pat ient Height 182.9 cm (6') 09/21/2018 10:15 AM VENEER TRIMMER Body Mass Index 24.14 09/21/2018 10:15 AM VENEER TRIMMER Plan of Treatment Health Maintenance Due Date [...] on patient's age to complete this to [facility] MENINGITIS IMMUNIZATION Aged Out No longe r eligible based on patient's age to complete this to [facility] Insurance Payer Benefit Plan / Subscriber ID Effective Dates Phone Addre ss Type Group BLUE PLUS BLUE PLUS [id number] 2018-Present [phone] [address] [address] [address] [place] [address] [place] [address] Luna,Ed Personal/Family Self 1960 [id number] (Home) [address] [place] [address] Care Teams Vascular Nurse Relationship Specialty Start Date End Date Ladan Song PCP - General 09/29/14 [facility] [address] [place] [address] [place] [address] Yulisa Bernabe PA Physician Supervisor Word Processing Physician Supervisor Word Processing 03/16/15 420 [facility] [address] [place] [address]
--- OUTSIDE RECORDS SUMMARY | 2022-08-05 10:28 | XMS_ITS | Encounter Summary ---
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
--- OUTSIDE RECORDS SUMMARY | 2022-08-05 10:28 | XMS_ITS | Encounter Summary ---
:1960 Author Organization [place] Address [address] [place] [address] Care Team Providers Name Role Phone Unavailable Primary Care Provider Unavailable Encounter Details Date Type Department Care Team Description 03/29/2010 Office Visit-[facility] INTERFACE [facility] DEPT Unknown, Provider Social History Tobacco Use Types Packs/Day Years Used Date Smoking Tobacco: Never Assessed Sex Assigned at Date Recorded Not on file documented as of this encounter Progress Notes Unknown, Provider - 03/29/2010 11:54 AM CDT Guest Service Supervisor: Mallorie Armendariz Status: Final - Signature Encounter: [...] transferred the call. Electronically signed by:Mallorie Armendariz [facility] Mar 29 2010 11:57AM LABELING ASSOCIATE documented in this encounter Plan of Treatment Not on filedocumented as of this encounter Visit Diagnoses Not on filedocumented in this encounter
--- OUTSIDE RECORDS SUMMARY | 2022-08-05 10:28 | XMS_ITS | Encounter Summary ---
:1960 Author Organization [place] Address [address] [place] [address] Care Team Providers Name Role Phone Unavailable Primary Care Provider Unavailable Encounter Details Date Type Department Care Team Description 07/08/2013 Psyche [facility] in [place] , [place] No Show [place] [facility] [place] [address] [place] [address] [place] [address] [phone] (Wo rk) Social History Tobacco Use Types Packs/Day Years Used Date Smoking Tobacco: Never Assessed Sex Assigned at Date Recorded Not on file documented as of this encounter Plan of Treatment Not on filedocumented as of this encounter Visit Diagnoses Not on filedocumented in this encounter
--- OUTSIDE RECORDS SUMMARY | 2022-08-05 10:28 | XMS_ITS | Encounter Summary ---
:1960 Author Organization [place] Address [address] [place] [address] Care Team Providers Name Role Phone Unavailable Primary Care Provider Unavailable Encounter Details Date Type Department Care Team Description 07/22/2013 Psyche [facility] Health AspSebas Unspecified adjustment System in [place] [facility] [place] reaction (Primary Dx) Psychology [address] [place] [address] [place] [address] [phone] Social History Tobacco Use Types Packs/Day Years Used Date Smoking Tobacco: Never Assessed Sex Assigned at Date Recorded Not on file documented as of this encounter Plan of Treatment Not on filedocumented as of this encounter Visit Diagnoses Diagnosis Unspecified adjustment reaction - Primar y documented in this encounter
--- OUTSIDE RECORDS SUMMARY | 2022-08-05 10:28 | XMS_ITS | Encounter Summary ---
:1960 Author Organization [place] Address [address] [place] [address]. [place] [address] Care Team Providers Name Role Phone Unavailable Primary Care Provider Unavailable Encounter Details Date Type Department Care Team Description 12/26/2009 Office Visit-[facility] UR[facility]Y CLINIC AND Alex Heart MD [facility] [address] TE AND UROLOGIC CANCERS [address] [place] [address] 4TH FLOOR, [address] [place] [address], (Fax ) [address] [address] Social History Tobacco Use Types Packs/Day Years Used Date Smoking Tobacco: Never Assessed Sex Assigned at Date Recorded Not on file documented as of this encounter Progress Notes Jarvis Heart - 12/26/2009 1:40 PM CDT Medical Communication Specialist: Jarvis Heart Status: Final - Signature Encounter: 26 Dec 2009 Type: Uro Prostate Visit Urologic Surgery [place] Mail Code [address] [place] [address] [place] [address] Office: [phone] RE: Laz Luna : 1960 [place]: 12/26/2009 [...] any children. 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 He does not smoke and does not [...] time to take effect. A flexible 16 Arabic cystoscope was then inserted through the urethra [...] of Urology [id number] cc: Cindy Moy NP [address] [address] Electronically signed by:Jarvis Heart M.D. Dec 27 2009 4:27PM CONDENSER WINDER documented in this encounter Plan of Treatment Not on filedocumented as of this encounter Visit Diagnoses Not on filedocumented in this encounter
--- OUTSIDE RECORDS SUMMARY | 2022-08-05 10:28 | XMS_ITS | Encounter Summary ---
:1960 Author Organization [place] Address [address] [place] [address] Care Team Providers Name Role Phone Ladan Song Primary Care Provider Yulisa Bernabe PA Unavailable Reason for Visit Reason Comments Consult personal issues, would not explain Encounter Details Date Type Department Care Team Description 09/21/2018 Office Visit [facility] Urology and Keyla Haider le dysfunction, Inst for Prostate and PATIENCE Reaves unspecified erectile Urologic Cancers [address] [facility] [address] dysfunction type 909 [place], [place] (Primary Dx) 4th [address] [place] [address] [phone] [address] (Work) [phone] Social History Tobacco Use Types Packs/Day Years Used Date Smoking Tobacco: Never Smokeless Tobacco: Never Alcohol Use Standard Drinks/Week Comments No 0 (1 standard drink = 0.6 oz pure alcoho l) Sex Assigned at Date Recorded Not on file documented as of this encounter Last Filed Vital Signs Vital Sign Reading Time Taken Comments Blood Pressure 142/80 09/21/2018 10:15 AM CERTIFIED PEDORTHOTIST Pulse 78 09/21/2018 10:15 AM CERTIFIED PEDORTHOTIST Temperature - - Respiratory Rate - - Oxygen Saturation - - Inhaled Oxygen Concentration - - Weight 80.7 kg (178 lb) 09/21/2018 10:15 AM CERTIFIED PEDORTHOTIST per pat ient Height 182.9 cm (6') 09/21/2018 10:15 AM CERTIFIED PEDORTHOTIST Body Mass Index 24.14 09/21/2018 10:15 AM CERTIFIED PEDORTHOTIST documented in this encounter Progress Notes Keyla [...] of erectile dysfunction. His [facility] visit with [facility] Urology was 04/10/2015 with Jess Bernabe [...] since 2003 when he his from the [facility]. For the past 3-5 years, he also [...] unsure what type. SOCIAL HISTORY: - from [facility] 2003 - no intercourse. 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 Never smoked. reports that has never smoked. [...] on the front of his truckif the group insurance specialist wouldn't cooperate with him. -At this time, [...] I stood up and walked out of [facility] stating that I was leaving now. The patient then proceeded to walk out of clinic into the [facility]. -Urology patient care ward supervisor was notified and an ACT report [...] Keyla Haider PA-C Department of Urologic Surgery IFIED PEDORTHOTIST documented in this encounter Nursing Notes Radha [...] file Radha Sultana LPN 09/21/2018 10:17 AM IFIED PEDORTHOTIST documented in this encounter Plan of Treatment Not on filedocumented as of this encounter Visit Diagnoses Diagnosis Erectile dysfunction, unspecified erecti le dysfunction type - Primary documented in this encounter Care Teams Sewing Machine Operator Zipper Relationship Specialty Start Date End Date Ladan Song PCP - General 09/29/14 [facility] [address] [place] [address] [place] [address] Yulisa Bernabe PA Physician Sales Enablement Consultant Physician Sales Enablement Consultant 03/16/[address] [place] [address] 394 [place] [address] documented as of this encounter
--- OUTSIDE RECORDS SUMMARY | 2022-08-05 10:28 | XMS_ITS | Encounter Summary ---
:1960 Author Organization [place] Address [address] [place] [address] Care Team Providers Name Role Phone Ladan Song Primary Care Provider Yulisa Bernabe Unavailable Reason for Visit Reason Onset Date Comments Call Back 07/10/2016 Encounter Details Date Type Department Care Team Description 07/10/2016 Telephone [facility] Urology and Inst Yulisa Farah PA Call Back for Prostate and Urologic [facility] Urology Cancers [address] [place] [address] [place], [place] [address] [place] [address] [place] [phone] Social History Tobacco Use Types Packs/Day Years [...] on filedocumented in this encounter Care Teams Laborer Driver Relationship Specialty Start Date End Date Ladan Song PCP - General 09/29/14 [facility] [address] [facility] [address] [place] [address] Yulisa Bernabe PA Physician Cloud Automation Tester Physician Cloud Automation Tester 03/16/[address] [place] [address] 394 [place], [place] [address] documented as of this encounter
--- OUTSIDE RECORDS SUMMARY | 2022-08-05 10:28 | XMS_ITS | Encounter Summary ---
:1960 Author Organization [place] Address [address] [place] [address] Care Team Providers Name Role Phone Unavailable Primary Care Provider Unavailable Encounter Details Date Type Department Care Team Description 04/02/2010 Office Visit-[facility] INTERFACE [facility] DEPT Provider, [facility] Nurs e Social History Tobacco Use Types Packs/Day Years Used Date Smoking Tobacco: Never Assessed Sex Assigned at Date Recorded Not on file documented as of this encounter Progress Notes Provider, [facility] Nurse - 04/02/2010 1:38 PM CDT Pattern Perforating Machine Operator: Mildred Linares Status: Final - Signature Encounter: [...] by:Mildred Linares L.P.N. Apr 02 2010 1:39PM SPEECH LANGUAGE PATHOLOGIST documented in this encounter Plan of Treatment Not on filedocumented as of this encounter Visit Diagnoses Not on filedocumented in this encounter
--- OUTSIDE RECORDS SUMMARY | 2022-08-05 10:28 | XMS_ITS | Encounter Summary ---
:1960 Author Organization [place] Address [address] [place] [address] Care Team Providers Name Role Phone Unavailable Primary Care Provider Unavailable Encounter Details Date Type Department Care Team Description 07/19/2013 Psyche [facility] Health AspSebas Unspecified adjustment System in [place] [facility] [place] reaction (Primary Dx) Psychology [address] [place] [address] [place] [address] [phone] Social History Tobacco Use Types Packs/Day Years Used Date Smoking Tobacco: Never Assessed Sex Assigned at Date Recorded Not on file documented as of this encounter Plan of Treatment Not on filedocumented as of this encounter Visit Diagnoses Diagnosis Unspecified adjustment reaction - Primar y documented in this encounter
--- OUTSIDE RECORDS SUMMARY | 2022-08-05 10:28 | XMS_ITS | Encounter Summary ---
:1960 Author Organization [place] Address [address] [place] [address] Care Team Providers Name Role Phone Unavailable Primary Care Provider Unavailable Encounter Details Date Type Department Care Team Description 12/26/2009 Office Visit-[facility] INTERFACE [facility] DEPT Provider, [facility] Nurs e Social History Tobacco Use Types Packs/Day Years Used Date Smoking Tobacco: Never Assessed Sex Assigned at Date Recorded Not on file documented as of this encounter Progress Notes Provider, [facility] Nurse - 12/26/2009 1:40 PM CDT Community Health Nursing Director: Radha Morales Status: Signed Encounter: 26 Dec [...] By: Radha Morales L.P.N.; 12/27/2009 10:54 AM EXECUTIVE LEGAL SECRETARY; Author. Provider, [facility] Nurse - 12/26/2009 1:40 PM CDT Community Health Nursing Director: Radha Morales Status: Final Encounter: 26 Dec 2009 Type: Rooming Note Reason For Visit New leakage and sd Do you have any other appointments, tests or procedures within the [place] system for this same day? No. Pain [...] By: Radha Morales L.P.N.; 12/26/2009 1:30 PM EXECUTIVE LEGAL SECRETARY; Author. documented in this encounter Plan of Treatment Not on filedocumented as of this encounter Visit Diagnoses Not on filedocumented in this encounter
--- OUTSIDE RECORDS SUMMARY | 2022-08-05 10:28 | XMS_ITS | Encounter Summary ---
:1960 Author Organization [place] Address [address] [place] [address] Care Team Providers Name Role Phone Unavailable Primary Care Provider Unavailable Encounter Details Date Type Department Care Team Description 07/26/2013 Office Visit [facility] Chris Mehreen Av ed adjustment System in [place] HAKEEM Roberson reaction (Primary Dx) Psychiatry [address] [phone] Social History Tobacco Use Types Packs/Day Years [...] (336 lb 9.6 oz) 07/27/2013 4:25 PM DIRECTOR CONSTRUCTION SERVICES Height - - Body Mass Index - - documented in this encounter Progress Notes Luz Lindsay - 07/28/2013 7:18 AM CST BRIEF DISCUSSION NOTE: Time spent with client approximately 45 - 50 minutes. This is a note for the 8th and final session of the [facility] Program group. The patient was active in the participation of this group today. The topic for discussion was preventing relapse and continued motivation for weight loss. The patient was given a letter stating that he completed all of the eight group sessions. Mr. Luna weighed in today at 336.6 pounds. AM:phil D: 07-27-13 Mehreen Perez, MOLDING MACHINE OPERATOR HELPER T: 07-28-13 CTOR CONSTRUCTION SERVICES documented in this encounter Plan of Treatment Not on filedocumented as of this encounter Visit Diagnoses Diagnosis Unspecified adjustment reaction - Primar y documented in this encounter
--- OUTSIDE RECORDS SUMMARY | 2022-08-05 10:28 | XMS_ITS | Encounter Summary ---
:1960 Author Organization [place] Address [address] [place] [address] Care Team Providers Name Role Phone Unavailable Primary Care Provider Unavailable Encounter Details Date Type Department Care Team Description 06/28/2013 Office Visit [facility] Mehreen Perez Av ed adjustment System in [place] HAKEEM Roberson reaction (Primary Dx) Psychiatry [address] [phone] Social History Tobacco Use Types Packs/Day Years [...] This is the 4th session for the [facility] Program on weight management. Specifically accomplished today [...] 341.5 pounds. AM:karinas D: 06-28-13 Mehreen Perez, COMMUNITY SERVICES MANAGER T: 06-29-13 documented in this encounter Plan of Treatment Not on filedocumented as of this encounter Visit Diagnoses Diagnosis Unspecified adjustment reaction - Primar y documented in this encounter
--- OUTSIDE RECORDS SUMMARY | 2022-08-05 10:28 | XMS_ITS | Encounter Summary ---
:1960 Author Organization [facility] Address [address] [place] [address]. [place] [address] Care Team Providers Name Role Phone Ladan Song Primary Care Provider Yulisa Bernabe Unavailable Reason for Visit Reason Onset Date Comments Results 04/23/2015 Encounter Details Date Type Department Care Team Description 04/23/2015 Telephone [facility] Yulisa [place] PA Results FOR PROSTATE AND UROLOGIC [facility] [address] [place] [address] 4TH FLOOR, [address] [facility], [facility] [address] [place], [place] [phone] Social History Tobacco Use [...] you first. His cell phone number is: [phone] Thank you!! documented in this encounter Plan of Treatment Not on filedocumented as of this encounter Visit Diagnoses Not on filedocumented in this encounter Care Teams Fur Joiner Relationship Specialty Start Date End Date Ladan Song PCP - General 09/29/14 [facility] [address] [facility] [address] [place] [address] Yulisa Bernabe PA Physician System Administration Advisor Physician System Administration Advisor 03/16/15 [facility] [address] [place], [place] [address] documented as of this encounter
--- OUTSIDE RECORDS SUMMARY | 2022-08-05 10:28 | XMS_ITS | Encounter Summary ---
:1960 Author Organization [facility] Address [address] [place] [address] Care Team Providers Name Role Phone Unavailable Primary Care Provider Unavailable Encounter Details Date Type Department Care Team Description 06/21/2013 [facility] Unspecified adjustment System in [place] [facility] [place] reaction (Primary Dx) Psychology [address] [place] [address] [place] [address] [phone] Social History Tobacco Use Types Packs/Day Years Used Date Smoking Tobacco: Never Assessed Sex Assigned at Date Recorded Not on file documented as of this encounter Plan of Treatment Not on filedocumented as of this encounter Visit Diagnoses Diagnosis Unspecified adjustment reaction - Primar y documented in this encounter
--- OUTSIDE RECORDS SUMMARY | 2022-08-05 10:28 | XMS_ITS | Encounter Summary ---
:1960 Author Organization [place] Address [address] [place] [address] Care Team Providers Name Role Phone Unavailable Primary Care Provider Unavailable Encounter Details Date Type Department Care Team Description 07/13/[address] [facility] Mehreen Perez ed adjustment System in [place] HAKEEM Roberson reaction (Primary Dx) Psychiatry [address] [phone] Social History Tobacco Use Types Packs/Day Years Used Date Smoking Tobacco: Never Assessed Sex Assigned at Date Recorded Not on file documented as of this encounter Progress Notes Luz Lindsay - 07/18/2013 5:12 AM CST BRIEF DISCUSSION NOTE: Time spent with client approximately 45 - 50 minutes. The patient appoints to the clinic for a missed session of the [facility]. Session #2 was the topic of discussion for our meeting today. The session primarily focused on goal setting long termand short term. We also spoke briefly about return to work and dietary changes post surgery that will need to occur. The patient did report meeting with a dietitian over in the [facility] where more of this was being discussed. The material was presented from the book My Weight Loss Solution a [facility] Guide. The patient participated actively in discussion one-to-one. No weight was obtained today. The patient was invited to join the group next week. AM:phil D: 07-14-13 CAROL Graf T: 07-18-13 CASE TRIMMER documented in this encounter Plan of Treatment Not on filedocumented as of this encounter Visit Diagnoses Diagnosis Unspecified adjustment reaction - Primar y documented in this encounter
--- OUTSIDE RECORDS SUMMARY | 2022-08-05 10:28 | XMS_ITS | Encounter Summary ---
:1960 Author Organization [place] Address [address] [place] [address] Care Team Providers Name Role Phone Unavailable Primary Care Provider Unavailable Encounter Details Date Type Department Care Team Description 02/15/2010 Office Visit-P INTERFACE P DEPT Jessee Iniguez [facility] [address] [address] (Wo rk) Social History Tobacco Use Types Packs/Day Years Used Date Smoking Tobacco: Never Assessed Sex Assigned at Date Recorded Not on file documented as of this encounter Progress Notes Estephania Iniguez - 02/15/2010 12:16 PM CDT Fisheries Biologist: Estephania Iniguez Status: Final - Signature Encounter: [...] by:Estephania Iniguez MA Feb 15 2010 12:22PM FORMING MILL OPERATOR documented in this encounter Plan of Treatment Not on filedocumented as of this encounter Visit Diagnoses Not on filedocumented in this encounter
--- OUTSIDE RECORDS SUMMARY | 2022-08-05 10:29 | XMS_ITS | Encounter Summary ---
:1960 Author Organization [facility] Address [address], [place] [address] Care Team Providers Name Role Phone Cintia Cobb MD Primary Care Provider [phone] Reason for Referral Procedure/Equipment (Routine) - Incomplete Specialty Diagnoses / Procedures Referred By Contact Refer red To Contact Diagnoses Pain of left lower leg Delgado Gottlieb MD Procedures US VENOUS LEFT LOWER EXTREM DOPPLER [address] [place] [address] Referral ID Status Reason Start Date Expiration Date Visits V isits Requested Authorized [id number] Incomplete 06/30/2022 09/29/2023 1 1 Reason for Visit Reason Comments QUESTIONS, GENERAL Encounter Details Date Type Department Care Team Description 06/26/2022 Telephone Specialty Center [address] Delgado Gottlieb MD QUESTIONS, GENERAL Orthopedics Clinic [address] [facility] [place] [address] [place] [address] [phone] Social History Tobacco Use Types Packs/Day Years [...] stay. Rosetta Ye RN 07/14/2022, 10:55 AM SH MILL OPERATOR Gretchen Patino ATC - 07/10/2022 9:22 AM [...] would like us to send this to [facility] he would like us to leave the letter at the front desk representative for someone to pharmacy picking tech for him. Unfortunately, as Rosetta told the [...] to be emailed to his home at [email or web address] He was informed that we do not sendletters via email as we do not have a secure portal on our end. He was advised to set up a [employer] Chart account and we could get him some help to do so. He states that he does not know how to set up a [employer] account and does not want all the [...] Rosetta is not in until later today, Practicing Dermatologist did reach out to see if we could help with any questions. Left message for pt to call back at [phone] and press the option for [facility]. [...] states that they never called him to [facility]. He was informed that he can [...] results. Patient has not had it done. [facility] at [phone] and follow the prompt for [facility] and [...] stating that it should be faxed to [phone]. He states I can't read my own writing. My 5's look like a 7 and is should have been a 1. The order has been faxed to the updated number. Confirmation received. Rosetta Ye RN 06/30/2022, 1:56 PM T Rosetta Ye RN - 06/30/2022 11:23 AM CDT Patient states that his insurance is telling him that it may take up to 7 days to get a ride as he already used up his short notice ride. He states he is going to see what they say once they get the order. He states he is needing the order faxed to [facility] at [phone]. Order has been faxed as requested. Rosetta [...] closer to him or come to the [facility]. He states he has enough other medication [...] AM CDT Patient was transferred through to dc. Patient is stating that his pain is [...] Encounters Date Type Specialty Care Team Description 09/15/2022 Appointment Orthopedics Delgado Gottlieb MD [address] [place], [place] [address] (Wo rk) 10/08/2022 Appointment Orthopedics Delgado Gottlieb MD [address] [place], [place] [address] (Wo rk) 05/27/2023 Appointment Chemo Therapy/Infusion Services Scheduled Orders Name Type Priority Associated Diagnoses Order S chedule US VENOUS LEFT LOWER Imaging New STAT Pain of left lower l eg Expected: 06/30/2022, EXTREM DOPPLER Expires: 06/08 documented as of this encounter Visit Diagnoses Diagnosis Pain of left lower leg - Primary Pain in limb documented in this encounter Care Teams Moderate Needs Teacher Relationship Specialty Start Date End Date Cintia Cobb MD PCP - General Family Practice 09/30/21 documented as of this encounter
--- OUTSIDE RECORDS SUMMARY | 2022-08-05 10:29 | XMS_ITS | Encounter Summary ---
:1960 Author [facility] Address [address] [place] [address] Care Team Providers Name Role Phone Cintia Cobb MD Primary Care Provider [phone] Reason for Referral Therapies (Routine) - New Request Specialty Diagnoses / Procedures Referred By Contact Refer red To Contact Diagnoses Closed nondisplaced fracture of left tibial plateau with routine healing, subsequent encounter Delgado Gottlieb MD [address] [place] [address] Referral ID Status Reason Start Date Expiration Date Visits V isits Requested Authorized [id number] New Request 08/04/2022 08/04/2023 1 1 Scheduling Instructions This order is [...] ask your clinician's staff to assist you. D [facility]IC[facility] Procedure/Equipment (Routine) - Incomplete Specialty Diagnoses / Procedures Referred By Contact Refer red To Contact Diagnoses Closed nondisplaced fracture of left tibial plateau with routine healing, subsequent encounter Delgado Gottlieb MD Procedures XR Knee Lt 2 Views [address] [place] [address] Referral ID Status Reason Start Date Expiration Date Visits V isits Requested Authorized [id number] Incomplete 08/04/2022 11/03/2023 1 1 D [facility]IC[facility] Reason for Visit Reason Comments FOLLOW-UP,FRACTURE Encounter Details Date Type Department Care Team Description 08/04/2022 Office Visit Specialty Center Delgado Gottlieb, Domenica sed nondisplaced fracture of left tibial plateau with routine healing, subsequent encounter (Primary Dx); 435 Orthopedics Clin ic MD Closed fracture of distal end of left fe mur with routine healing, unspecified fracture morphology, subsequent encounter [address] [place] [address] [place], [place] [phone] [address] Social History Tobacco Use Types Packs/Day Years [...] as of this encounter Patient Instructions Patient InstructionsPeharinderKyleigh rivasavery Oakes, ATC - 08/04/2022 1:00 PM CST ORTHOPAEDICS DEPARTMENT PHONE NUMBER: [phone] Reason for today's visit: FOLLOW-UP,FRACTURE Treatment plan: Okay to progress weight bearing as tolerated on the left leg, using crutches/walker/cane as needed for support. Back off of weightbearing if you have increased pain New physical therapy order provided Wear the hinged knee brace as needed for support Follow up appointments: You will follow up with Delgado Gottlieb MD in 6 week(s). X-Rays: You will have left knee X-Rays taken with your next Orthopaedics appointment. Please arrive 15 minutes early for your appointment. Reason for next Orthopaedics appointment: Follow up left tibial plateau fracture DOI: 06/21/2022 Please stop at the check out desk to schedule a follow up appointment. Use this grid to write down your next appointment. DATE & TIME PROVIDER LOCATION APPT NOTES ( ) [facility]: [address] [place], [place] ( ) [facility]: [address] [place], [place] ( ) Other: Follow up left tibial plateau fracture DOI: 06/21/2022 ( ) [facility]: [address] [place] [address] ( ) [facility] [address] [place], [place] ( ) Other: If you have any questions about your visit, your symptoms, your medication, your test results or it is not clear what your diagnosis or treatment plan is please contact us at [phone] or send us a secure message via imagine. You may receive a survey in the mail regarding your visit today. Your feedback is very important to us, please take a moment to complete the survey which is completely anonymous. If you would like to speak to someone specifically, you may contact the clinic at [phone] and your call will be directed to someone on our leadership team. Thank you for choosing Delgado Gottlieb MD and [facility]. Did you know, you can now reach us for appointment scheduling seven days a week, 365 days a year from 7am to 9pm? Just call our main number, , listen to the prompts and you will be connected to a solar manufacturer's representative who can assist you with your appointment scheduling needs. [facility] documented in this encounter Progress Notes Delgado Gottlieb MD - 08/04/2022 1:00 PM CST Orthopaedic Follow-Up Note Date of Injury: 06/21/2022 [...] is a 62 y.o. male who presents 6-1/2 weeks out from left tibial plateau fracture. His injury occurred when he fell directly onto the left knee on 06/21/2022. He was seen at an outside hospital where radiographs were read as normal, and he was referred for outpatientfollow up. His x-rays were concerning for tibial tubercle fracture, and a CT scan revealed a nondisplaced medial tibial plateau fracture with extension to the tibial tubercle. We discussed treatment options and ultimately planned to proceed with non-operative management. Last visit, he continued to have severe pain at the knee and proximal leg, worsened after a recent episode when the leg twisted whil e getting off of the toilet. X-rays remained stable, he was transitioned to a hinged knee brace for comfort, he was to remain touchdown weightbearing, and hydrofera blue dressing changes were started for his calf wound. He is using a wheelchair, and wearing a hinged knee brace today. He reports continued pain at the knee, including the medial, anterior, and lateral knee. He also notes some pain over the medial distal femur area with direct pressure. Wearing the hinged knee brace has been beneficial, and he has been putting some weight on the leg. He continues use of assistive devices, though is able to put some weight on the leg for very short distances without assistive devices. On the whole he is actually more upbeat today and encouraged by the progress with his leg. He is also following with a wound clinic for his calf wound, which does seem to be shrinking in size. 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 Appears older than stated age. Psychiatric: Patient's affect is pleasant and appropriate. Patient is cooperative with exam. HEENT: Hearing is intact to spoken word, extraocular movements intact. Respiratory: Breathing is unlabored, regular respirations. Examination of the patient's left lower extremity demonstrates superficial wound at the tibial tubercle is healed. Swelling at the proximal tibia has improved since last visit. Unchanged venous stasis changes from the mid cadena distally. Palpation: Tender to palpation over the medial proximal tibia and over the screw heads at the medialdistal femur. No tenderness over the tibial tubercle. ROM: Knee ROM from 15 degrees short of full extension to 100 degrees flexion. Sensory: SILT to light touch about the knee and thigh Vascular: Foot warm, with vascular changes Motor: Fires EHL/FHL/Gastroc/Tib Anterior. Able to perform straight leg raise, though limited by current flexion contracture. Imaging: Radiographs obtained of the left knee obtained today are personally reviewed, which demonstrate stable alignment of the medial tibial plateau and tibial tubercle fractures. Interval callus formation atthe medial tibial plateau fracture. Prior distal femur fracture is healed. All implants at the distal femur remain intact. Assessment: Patient is a 62 y.o. male 6-1/2 weeks out from a mechanical ground level fall, sustaining a nondisplaced left medial tibial plateau fracture involving the tibial tubercle. He is now 10 months status post ORIF left supracondylar distal femur fracture. Presenting today with stable radiographs and clinically improving. Plan: His radiographs reveal stable alignment of his fractures, and he has been able to mobilize at home. He may continue to gradually progress weight bearing as tolerated for the left lower extremity, usingassistive devices as he needs to for support. I offered use of a shorter hinged knee brace to wear as he starts to mobilize more, and he may wear this as needed for comfort. I recommend starting physical therapy to work on strengthening and mobilization. I would plan to seehim back in 6 weeks for a recheck. We discussed that if his distal femur screws remain bothersome, we could consider removal of these in the future. If he were to require a total knee replacement in the future, some or all of the distal femur hardware would need to be removed. 1. Weight bearing: As tolerated for the left lower extremity, using assistive devices as needed 2. Fit for a short hinged knee brace to wear as needed for comfort 3. Outpatient physical therapy order placed, which they plan to pursue in their local area 4. New letter provided for work. Follow-Up: In 6 weeks, checking x-rays AP/Lat left knee The patient is in agreement with today's plan and has no further questions. Speech-recognition software was utilized in the writing of this note and therefore the note may contain unintended word substitutions. Delgado Gottlieb MD Obstetric Assistant [facility] Department of Orthopaedic Surgery [facility] D HORTICULT[facility] SPECIALTY [facility]OWER documented in this encounter Plan of Treatment Upcoming Encounters Date Type Specialty Care Team Description 09/15/2022 Appointment Orthopedics Delgado Gottlieb MD [address] [place] [phone] (Gavi presley) 10/08/2022 Appointment Orthopedics Delgado Gottlieb MD [address] [place] [phone] (Gavi presley) 05/27/2023 Appointment Chemo Therapy/Infusion Services Scheduled Referrals Name Type Priority Associated Diagnoses Order S chedule Physical Therapy - Referral Routine Closed nondisplaced Or dered: 08/04/2022 Ortho [[id number]] fracture of left tibial plateau with routine healing, subsequent encounter documented as of this encounter Results XR Knee Lt 2 Views (08/04/2022 12:52 PM [facility]) Anatomical Region Laterality Modality Lower Extremity, Knee Computed Radiograp hy Specimen (Source) Anatomical Collection Method Collection Time Re ceived Time Location / / Volume Laterality 08/04/2022 12:52 PM [facility] Narrative 08/04/2022 6:53 PM [facility] EXAM: XR KNEE LT 2 VIEWS LOCATION: [place] [address] DATE/TIME: 08/04/2022 12:52 PM INDICATION: Left distal femur fracture COMPARISON: 07/07/2022 IMPRESSION: Redemonstrated ORIF of a com minuted fracture of the distal femur. No interval hardware complication. Incomplete healing. Incomplete healing of a mildly displaced avulsive fracture of the tibial tubercle and fracture of the proximal tibia. Procedure Note Sebas Thompson MD - 08/04/2022Formatti ng of this note might be different from the original. EXAM: XR KNEE LT 2 VIEWS LOCATION: [facility] [address] DATE/TIME: 08/04/2022 12:52 PM INDICATION: Left distal femur fracture COMPARISON: 07/07/2022 IMPRESSION: Redemonstrated ORIF of a com minuted fracture of the distal femur. No interval hardware complication. Incomplete healing. Incomplete healing of a mildly displaced avulsive fracture of the tibial tubercle and fracture of the proximal tibia. Delgado Gottlieb MD RAD GD documented in this encounter Visit Diagnoses Diagnosis Closed nondisplaced fracture of left tib ial plateau with routine healing, subsequent encounter - Primary Closed fracture of distal end of left fe mur with routine healing, unspecified fracture morphology, subsequent encounte r Closed fracture of distal end of left fe mur with routine healing, unspecified fracture morphology, subsequent encounte r documented in this encounter Care Teams Lead Atg Developer Relationship Specialty Start Date End Date Cintia Cobb MD PCP - General Family Practice 09/30/21 documented as of this encounter
--- OUTSIDE RECORDS SUMMARY | 2022-08-05 10:29 | XMS_ITS | Clinical Summary ---
:1960 [facility] Address [address] [place] [address] Care Team Providers Name Role Phone Cintia Cobb MD Primary Care Provider Source Comments You are receiving this document [...] for each transition of care or referral. [employer] Allergies Active Allergy Reactions Severity Noted Date Comments Ciprofloxacin Unknown 11/03/2016 Swelling Haemophilus Influenzae Gastrointestinal 11/03/2016 D iarrhea Influenza A (H1n1) Monovalent Gastrointestinal 022 Diarrhea Vaccine Influenza Virus Vaccine Other, see comments 11/03/2016 Diarrhea Medications Medication Sig Dispensed Refills Start End Status Date Date furosemide (LASIX) 3 A ctive 40 MG tablet 7 allopurinol 1 Active (ZYLOPRIM) 300 MG 7 tablet Sennosides (SENOKOT 0 Active OR) omeprazole Take 20 mg by 11 Activ e (PRILOSEC) 20 MG mouth daily. 8 capsule B-D 3CC LUER-ARIES USE DIRECTED 12 Active SYR 25GX5/8 25G X FOR CYANOCOBALAMIN 8 5/8 3 ML INJECTION acetaminophen TAKE 2 TABLETS BY 180 Tablet 2 Active (TYLENOL) 500 MG MOUTH THREE TIMES 2 023 tabletIndications: A DAY. MAXIMUM Pain ACETAMINOPHEN DOSE IS 4000 MG IN 24 HOURS INDICATIONS: FEVER, PAIN finasteride Take 5 mg by mouth 0 Active (PROSCAR) 5 MG daily. 2 tablet tamsulosin (FLOMAX) Take 0.8 mg by 0 Active 0.4 MG CAPS capsule mouth daily. 2 Calcium Carbonate Chew and swallow 2 0 Active (AKA OS-JESSE) 1250 Tablets by mouth. (500 Ca) MG chewable tablet diazePAM (VALIUM) 2 Take 1 Tablet (2 20 Tablet 0 Active MG tablet mg) by mouth every 2 6 hours as needed for Muscle Spasms. cyclobenzaprine Take 1 Tablet (10 60 Tablet 1 Active (FLEXERIL) 10 MG mg) by mouth two 2 tablet times daily as needed. FEROSUL 325 (65 Fe) Take 1 Tablet (325 0 Active MG tablet mg) by mouth 2 daily. oxyCODONE Take 1-2 Tablets 25 Tablet 0 Dis continued (ROXICODONE) 5 MG (5-10 mg) by mouth 2 022 immediate release every 4 hours as tablet needed for Pain. Active Problems Problem Noted Date Closed fracture of left distal femur 09/30/2021 Overview: Added automatically from request for emiliano flo [id number] Encounters Date Type Specialty Care Team Description 08/04/2022 Office Visit Orthopedics Delgado Gottlieb Closed nondis placed fracture of left tibial plateau with routine healing, subsequent encounter (Primary Dx); MD Terri Closed fracture of distal end of left femur with routine healing, unspecified fracture morphology, subsequent encounter 08/04/2022 Ancillary Radiology Delgado Gottlieb Closed fractu re of Procedure MD Terri distal end of l eft femur with rout ine healing, unspec ified fracture morpho logy, subsequent enco unter 07/22/2022 Telephone Orthopedics Delmer Valladares Nurse Return Call EMMA Fernandez Request (Reques tinandreia to speak with R N) 07/14/2022 Telephone Orthopedics Delgado Gottlieb, CHIDI Murray MD 07/07/2022 Office Visit Orthopedics Delgado Gottlieb [...] morpho logy, subsequent enco unter 06/26/2022 Telephone Orthopedics Delgado Gottlieb QUESTIONS, CHIDI Murray MD 06/25/2022 Office Visit Orthopedics Delgado Gottlieb Closed nondis placed fracture of left tibial plateau, initial encounter (Primary Dx); MD Terri Closed fracture of distal end of left femur with routine healing, unspecified fracture morphology, subsequent encounter 06/25/2022 Ancillary Radiology Delgado Gottlieb Acute pain of left knee; Procedure MD Terri Closed fracture of distal end of left femur with routine healing, unspecified fracture morphology, subsequent encounter 06/23/2022 Telephone Orthopedics Delgado Gottlieb MD 06/23/2022 Telephone Orthopedics Delgado Gottlieb PAIN, NOS MD Terri 06/17/2022 Telephone Orthopedics Cesar Scherer GENERAL D, MD 06/16/2022 Notes/Orders Orthopedics Cesar Scherer MD 06/16/2022 Telephone Orthopedics Delgado Gottlieb QUESTIONS, CHIDI Murray MD 06/13/2022 Refill Orthopedics Cesar Scherer Medication Questions MD Terri 05/27/2022 Hospital Encounter Chemo Anali Lam, Close d fracture of Therapy/Infusion Pat Brenda, distal end of left Services MBBS femur with rout ine healing, unspec ified fracture morpho logy, subsequent enco unter (Primary Dx) 05/19/2022 Telephone Orthopedics Cesar Scherer Nurse Retur n Call MD Terri Request (Low ba ck pain) 05/10/2022 Refill Orthopedics Ita Mack, Quianaill PA-C from Last 3 Months Social History Tobacco [...] 09/15/2022 Appointment Orthopedics Delgado Gottlieb MD [address] [place], [place] [address] (Gavi rk) 10/08/2022 Appointment Orthopedics Delgado Gottlieb MD [address] [place], [place] [address] (Gavi presley) 05/27/2023 Appointment Chemo Therapy/Infusion Services Health Maintenance [...] to pic Medical Devices Implanted Type Area Transfer Specialist Device Shelf Model / Identifier Expiration Serial / Date Lot <Historic:?? Stpckac-Faemji-8/15/2017 <Histori [employer] / Implanted: 01/19/2017 (Quantity not on file) c:?? Elect rophysiology [id number] / Cardiac- Rhythm Description: [employer] Chuy Toribio [id number] Pacemaker Implant ID:[id number] Pacemaker Leads are Snapstreamtronic. 5mm Locking Screw For Im Nails;80mm DEVICE Left: F[place]UR DISTAL [place] [facility] 911 - [phone] / Implanted: Qty: 1 on 10/01/2021 by Delgado Gottlieb MD at [facility] Trauma / Description: RFN ADVANCED RETROGRADE FEM ORAL NAIL SYSTEM Procedures Procedure Name Priority Date/Time Associated Diagnosis Comme nts XR KNEE LT 2 VIEWS Routine 08/04/2022 12:52 PM Closed fracture of Results for this BRINE TANK OPERATOR distal end of left procedure are in femur with routine the resul ts healing, unspecified section . fracture morphology, subsequent encounter XR KNEE LT 2 VIEWS Routine 07/07/2022 [...] Months Results XR Knee Lt 2 Views (08/04/2022 12:52 PM BRINE TANK OPERATOR)Only the most recent of2 results within the time period is included. Anatomical Region Laterality Modality Lower Extremity, Knee Computed Radiograp hy Specimen (Source) Anatomical Collection Method Collection Time Re ceived Time Location / / Volume Laterality 08/04/2022 12:52 PM BRINE TANK OPERATOR Narrative 08/04/2022 6:53 PM BRINE TANK OPERATOR EXAM: XR KNEE LT 2 VIEWS LOCATION: [facility] 435 DATE/TIME: 08/04/2022 12:52 PM INDICATION: [...] EXAM: XR KNEE LT 2 VIEWS LOCATION: [facility] 435 DATE/TIME: 08/04/2022 12:52 PM INDICATION: Left distal femur fracture COMPARISON: 07/07/2022 IMPRESSION: Redemonstrated ORIF of a com minuted fracture of the distal femur. No interval hardware complication. Incomplete healing. Incomplete healing of a mildly displaced avulsive fracture of the tibial tubercle and fracture of the proximal tibia. Delgado Gottlieb MD RAD GD CT Knee Lt WO IV Cont (06/25/2022 11:21 AM CDT) Anatomical Region Laterality Modality Lower Extremity, Knee, Leg, Skeletal, Thigh Computed Tomography Specimen (Source) Anatomical Collection Method Collection Time Re ceived Time Location / / Volume Laterality 06/25/2022 11:21 AM CDT Narrative 06/25/2022 1:16 PM CDT EXAM: CT KNEE LT WO IV CONT LOCATION: [place] [address] DATE/TIME: 06/25/2022 11:21 AM INDICATION: Tibial tubercle [...] fract ure. Hardware partially seen on the welder experimental images in the distal femur from lateral [...] fracture. Hardware parti ally seen on the welder experimental images in the distal femur from lateral [...] ss Type Group BCBS BCBS PMAP BLUE [id number] 2018-Present [address] [address] [place] [address] (Home) [place] [address] Laz Luna J Personal/Family Self 1960 [id number]) [place] [address] Jeremy Ed J Personal/Family Self 1960 [id number] (Home) [place] [address] JEREMY,ED J Personal/Family Advance Directives Latest Code Status on File Code Status Date Activated Date Inactivated Comments Full Code 01/27/2022 2:04 PM 01/27/2022 8:57 PM Code Status History Code Status Date Activated Date Inactivated Comments Full Code 10/01/2021 8:29 AM 10/03/2021 5:59 PM Full Code 09/30/2021 9:42 PM 10/01/2021 8:29 AM Full Code 08/18/2017 4:40 PM 08/18/2017 8:44 PM Care Teams Organ Tuner Relationship Specialty Start Date End Date Cintia Cobb MD PCP - General Family Practice 09/30/21
--- OUTSIDE RECORDS SUMMARY | 2022-08-05 10:29 | XMS_ITS | Encounter Summary ---
:1960 Author Organization [facility] Address [address] [place] [address] Care Team Providers Name Role Phone Cintia Cobb MD Primary Care Provider [phone] Reason for Visit Reason Comments Infusion Infusion [...] cified site, initial encounter for fracture [address] [facility] [address] [place] Procedures ZOLEDRONIC ACID 1MG [place] [address] [place] [address] Phone: Fax: Referral ID Status Reason Start Date Expiration Date Visits V isits Requested Authorized [id number] Authorized 01/08/2022 01/20/2023 999 999 Encounter Details Date Type Department Care Team Description 05/27/2022 Hospital Encounter [facility] Domenica Mcallister fracture of Center JACQUELIN Mendez distal end of left [address] [place] [address] [facility] femur [facility] routine [address] healing, [place], [place] unspecif ied [address] fracture [phone] morphology, (Work) subsequent encounter (Primary Dx) Social [...] mouth 11 05/28 20 MG capsule daily. Sennosides (SENOKOT OR) 0 tamsulosin (FLOMAX) 0.4 Take 0.8 mg by mouth 0 MG CAPS capsule daily. cyclobenzaprine Take 1 Tablet (10 mg) 30 Tablet 1 2 06/13/2022 (FLEXERIL) 10 MG tablet by mouth two times daily as needed. oxyCODONE (ROXICODONE) Take 1-2 Tablets 25 Tablet 0 022 08/04/2022 5 MG immediate release (5-10 mg) by mouth tablet every 4 hours as needed for Pain. documented as of this encounter Progress Notes Ellen Hassan RN - 05/27/2022 8:00 AM CDT Dx: Closed fracture of left distal femur (HRC) Provider: Bliane Is this the first dose: Yes History [...] 09/15/2022 Appointment Orthopedics Delgado Gottlieb MD [address] [place], [place] [address] (Gavi presley) 10/08/2022 Appointment Orthopedics Delgado Gottlieb MD [address] [place], [place] [address] (Gavi presley) 05/27/2023 Appointment [...] glove documented in this encounter Care Teams Pearl Restorer Relationship Specialty Start Date End Date Cintia Cobb MD PCP - General Family Practice 09/30/21 documented as of this encounter
--- OUTSIDE RECORDS SUMMARY | 2022-08-05 10:29 | XMS_ITS | Clinical Summary ---
:1960 Author Organization [facility] [place] [address] Care Team Providers Name Role Phone Meghna [...] 08/11/2022 Office Visit Daniella Estrada, SAMIRA [address] [place], [place] [address] (Wo rk) Health Maintenance [...] RED CELL MORPHOLOGY (06/03/2022 10:08 AM CDT) [facility] Method Time Signature ELLIPTOCYTES Few 06/03/2022 [facility] 11:22 AM [facility] POLYCHROMASIA Slight 06/03/2022 [facility] 11:22 AM [facility] RBC COMMENT Present (A) RBC 06/03/2022 [facility] morphology 11:22 AM [facility] normal, RBC morphology within normal limits for newborns. Specimen Anatomical Collection Method Collection Time Receive d Time (Source) Location / / Volume Laterality Blood [facility]LOOD [facility]IMEN / [facility] / 06/03/2022 10:08 022 Unknown Unknown AM CDT 10:11 AM CDT Meghna Fox HEMATOLOGY Performing Organization Address City/[facility]/ZIP Code Phon e Number [address] [place] [address] PLATELET ESTIMATE (06/03/2022 10:08 AM CDT) [facility] Method Time Signature PLATELET Adequate Adequate, No 06/03/2022 [facility] ESTIMATE estimate 11:22 AM [facility] Specimen Anatomical Collection Method Collection Time Receive d Time (Source) Location / / Volume Laterality Blood BLOOD SPECIMEN / [facility] / 06/03/2022 10:08 022 Unknown Unknown AM CDT 10:11 AM CDT Meghna Blancaalvarado HEMATOLOGY Performing Organization Address City/State/ZIP Code Phon e Number [address] [place] [address] (ABNORMAL) CBC W PLT NO DIFF (06/03/2022 10:08 AM CDT) [facility] Method Time Signature WHITE BLOOD 6.2 4.5 - 11.0 06/03/2022 [facility] COUNT thou/cu mm 11:22 AM [facility] RED BLOOD COUNT 3.57 (L) 4.30 - 06/03/2022 [facility] 5.90 11:22 AM CDT [place] mil/cu mm CLINIC HEMOGLOBIN 7.8 (L) 13.5 - 06/03/2022 [facility] 17.5 g/dL 11:22 AM T [facility] HEMATOCRIT 27.2 (L) 37.0 - 06/03/2022 [facility] 53.0 % 11:22 AM T [facility] MCV 76 (L) 80 - 100 06/03/2022 [facility] fL 11:22 AM CDT [facility] MCH 21.8 (L) 26.0 - 06/03/2022 [facility] 34.0 pg 11:22 AM T [facility] MCHC 28.7 (L) 32.0 - 06/03/2022 [facility] 36.0 g/dL 11:22 AM T [facility] RDW 19.6 (H) 11.5 - 06/03/2022 [facility] 15.5 % 11:22 AM T [facility] PLATELET COUNT 198 140 - 440 06/03/2022 [facility] thou/cu mm 11:22 AM T [facility] MPV 10.5 6.5 - 11.0 06/03/2022 [facility] 11:22 AM CDT [facility] Specimen Anatomical Collection Method Collection Time Receive d Time (Source) Location / / Volume Laterality Blood BLOOD SPECIMEN / [facility] / 06/03/2022 10:08 022 Unknown Unknown AM CDT 10:11 AM CDT Meghna Fox DO HEMATOLOGY Performing Organization Address City/State/ZIP Code Phon e Number [address] [place] [address] PSA TOTAL (DIAGNOSTIC) (06/03/2022 10:08 AM CDT) P athologist Signature PSA TOTAL 0.92 <4.00 06/04/2022 [facility] (DIAGNOSTIC) ng/mL 6:29 AM CDT LABORATORY-[facility] [facility] Specimen Anatomical Collection Method Collection Time [...] between 4.00 and 10.00 ng/mL. The [employer] Field Agent PSA assay is a Chem iluminescent Microparticle Immunoassay(CMIA). Assay values obtained with different assay methods cannot be used interchangeably due to differences in assay method s and reagent specificity. ? Meghna Fox DO CHEMISTRY Performing Organization Address City/State/ZIP Code Phon e Number [employer] [address] [place] [address] LABORATORY-[facility]EN[facility] 2000 LABORATORY LIPID PANEL (06/03/2022 10:08 AM CDT) [facility] Method Time Signature CHOLESTEROL,TOTAL 130 100 [...] Organization Address City/State/ZIP Code Phon e Number [facility] [address] [place] [address] LABORATORY-CENTRAL [address] LABORATORY (ABNORMAL) BASIC METABOLIC PANEL (06/03/2022 10:08 AM CDT) [facility] Time Signature SODIUM 136 135 - 145 06/04/2022 [facility] mmol/L 6:06 AM CDT [facility] POTASSIUM 5.2 (H) 3.5 - 5.0 06/04/2022 [facility] mmol/L 6:06 AM CDT [facility] CHLORIDE 108 98 - 110 06/04/2022 [facility] mmol/L 6:06 AM CDT [facility] CO2,TOTAL 20 (L) 21 - 31 06/04/2022 [facility] mmol/L 6:06 AM CDT [facility] ANION GAP 8 5 - 18 06/04/2022 [facility] 6:06 AM CDT [facility] GLUCOSE 111 (H) 65 - 100 06/04/2022 [facility] mg/dL 6:06 AM CDT [facility] CALCIUM 8.1 (L) 8.5 - 10.5 06/04/2022 [facility] mg/dL 6:06 AM CDT [facility] BUN 25 8 - 25 06/04/2022 [facility] mg/dL 6:06 AM CDT [facility] CREATININE 0.97 0.72 - 06/04/2022 [facility] 1.25 mg/dL 6:06 AM CDT [facility] BUN/CREAT RATIO 26 (H) 10 - 20 06/04/2022 [facility] 6:06 AM CDT [facility] eGFR 88 (L) >90 06/04/2022 [facility] mL/min/1.7 6:06 AM CDT LABORATORY-[facility] 3m2 TRAL [...] Organization Address City/State/ZIP Code Phon e Number [facility] [address] [place], [place] [address] [address] LABORATORY-CENTRAL [facility] LABORATORY (ABNORMAL) URINALYSIS MICROSCOPIC (06/03/2022 10:05 AM CDT) [facility] Method Time Signature RBC 0-2 0-2, None 06/03/2022 [facility] Seen /HPF 10:49 AM CDT [facility] WBC 26-50 (A) 0-2, 3-5, 06/03/2022 [facility] None Seen 10:49 AM CDT [facility] BACTERIA Many (A) None 06/03/2022 [facility] Seen, 10:49 AM CDT [place] Rare, Few CLINIC Bacteria/ HPF EPITHELIAL None Seen None 06/03/2022 [facility] CELLS Seen, Few 10:49 AM CDT [place] Epi/HPF CLINIC Specimen Anatomical Collection Method Collection Time Receive d Time (Source) Location / / Volume Laterality Urine URINE SPECIMEN / Non-Blood / 06/03/2022 10:05 022 Unknown Unknown AM CDT 10:12 AM CDT Meghna Fox DO URINE Performing Organization Address City/State/ZIP Code Phon e Number [address] [place] [address] (ABNORMAL) URINE CULTURE (06/03/2022 10:05 AM CDT) [facility] Method Time Signature CULTURE RESULT (A) 06/06/2022 [facility] 6:38 AM CDT [facility] LAB[facility]ATORY CULTURE >100,000 CFU/mL 06/06/2022 [facility] Escherichia 6:38 AM CDT [facility]ORY[facility] coli [...] [facility] [address] [place] [address] LABORATORY-CENTRAL [facility] LABORATORY (ABNORMAL) UA W/ SEDIMENT EXAM REFLEXED PER CRITERIA (06/03/2022 10:05 AM CDT) [facility] Method Time Signature COLOR Yellow Yellow Color 06/03/2022 [facility] 10:48 AM [facility] CLARITY Clear Clear 06/03/2022 [facility] Clarity 10:48 AM [facility] SPECIFIC 1.025 1.010, 06/03/2022 [facility] GRAVITY,URINE 1.015, 10:48 AM [place] 1.020, 1.025 T CLINIC PH,URINE 5.5 6.0, 7.0, 06/03/2022 [facility] 8.0, 5.5, 10:48 AM [facility] 6.5, 7.5, T CLINIC 8.5 UROBILINOGEN, Normal Normal EU/dl 06/03/2022 [facility] H QUALITATIVE 10:48 AM [facility] PROTEIN, 100 (A) Negative 06/03/2022 [facility] URINE mg/dL 10:48 AM [facility] GLUCOSE, Negative Negative 06/03/2022 [facility] URINE mg/dL 10:48 AM [facility] KETONES,URINE Negative Negative 06/03/2022 [facility] mg/dL 10:48 AM [facility] BILIRUBIN,URI Negative Negative 06/03/2022 [facility] NE 10:48 AM [facility] OCCULT Negative Negative 06/03/2022 [facility] BLOOD,URINE 10:48 AM [facility] NITRITE Positive (A) Negative 06/03/2022 [facility] 10:48 AM [facility] LEUKOCYTE Trace (A) Negative 06/03/2022 [facility] ESTERASE 10:48 AM [facility] Specimen Anatomical Collection Method Collection Time Receive d Time (Source) Location / / Volume Laterality Urine URINE SPECIMEN / Non-Blood / 06/03/2022 10:05 022 Unknown Unknown AM CDT 10:12 AM CDT Meghna Fox DO URINE Performing Organization Address City/State/ZIP Code Phon e Number [address] [place] [address] from Last 3 Months Insurance Payer Benefit Plan / Subscriber ID Effective Dates Phone Addre ss Type Group [employer]UE [employer] [place] [employer] ADVANTAGE [id number] 2018-Present [address] [address] [place] [address] Care Teams Air Traffic Controller Center Relationship Specialty Start Date End Date Meghna Fox DO PCP - General Family Practice 02/11/22 [address] [place] [address]
--- OUTSIDE RECORDS SUMMARY | 2022-08-05 10:29 | XMS_ITS | Encounter Summary ---
:1960 Author Organization [facility] Address [address], [place] [address] Care Team Providers Name Role Phone Cintia Cobb MD Primary Care Provider [phone] Reason for Visit Reason Comments QUESTIONS, GENERAL Encounter Details Date Type Department Care Team Description 07/14/2022 Telephone Specialty Center [address] Delgado Gottlieb MD QUESTIONS, GENERAL Orthopedics Clinic [address] [place] [address] [place] [address] [phone] Social History Tobacco Use Types Packs/Day Years [...] Noted. Rosetta Ye RN 07/15/2022, 9:33 AM SCHOOL SUSPENSION COORDINATOR Delgado Gottlieb MD - 07/14/2022 11:04 PM [...] to figure out how to get to [facility] to get groceries vs [employer] as it [...] Yes Nory Padilla Mai 07/14/2022, 10:06 AM SCHOOL SUSPENSION COORDINATOR documented in this encounter Plan of Treatment Upcoming Encounters Date Type Specialty Care Team Description 09/15/2022 Appointment Orthopedics Delgado Gottlieb MD [address] [place], [place] [address] (Wo rk) 10/08/2022 Appointment Orthopedics Delgado Gottlieb MD [address] [place], [place] [address] (Wo rk) 05/27/2023 Appointment Chemo Therapy/Infusion Services documented as of this encounter Visit Diagnoses Not on filedocumented in this encounter Care Teams Wheel Installer Relationship Specialty Start Date End Date Cintia Cobb MD PCP - General Family Practice 09/30/21 documented as of this encounter
--- OUTSIDE RECORDS SUMMARY | 2022-08-05 10:29 | XMS_ITS | Encounter Summary ---
:1960 Author Organization [facility] Address [address] [place] [address] Care Team Providers Name Role Phone Cintia Cobb MD Primary Care Provider [phone] Reason for Visit Reason Comments PAIN, NOS Encounter Details Date Type Department Care Team Description 06/23/2022 Telephone Specialty Center [address] Delgado Gottlieb MD PAIN, NOS Orthopedics Clinic [address] [place] [address] [place] [address] [phone] Social History Tobacco Use Types Packs/Day Years [...] Ye RN 06/23/2022, 10:10 AM Nory Krishna 06/23/2022 8:48 AM CDT Has the patient [...] the weekend. He is had fell in [place]. He was not able to walk or [...] Description 09/15/2022 Appointment Orthopedics Delgado Gottlieb MD [address] [place] [phone] (Gavi presley) 10/08/2022 Appointment Orthopedics Delgado Gottlieb MD [address] [place], [place] [address] (Gavi presley) 05/27/2023 Appointment Chemo Therapy/Infusion Services documented as of this encounter Visit Diagnoses Not on filedocumented in this encounter Care Teams At Home Independent Call Center Agent Relationship Specialty Start Date End Date Cintia Cobb MD PCP - General Family Practice 09/30/21 documented as of this encounter
--- OUTSIDE RECORDS SUMMARY | 2022-08-05 10:29 | XMS_ITS | Encounter Summary ---
:[address] [facility] Address [address], [place] [address] Care Team Providers Name Role Phone Cintia Cobb MD Primary Care Provider [phone] Reason for Visit Reason Comments Refill Encounter Details Date Type Department Care Team Description 05/10/2022 Refill [facility] Ita Alvarez PA-C Refill [address] [place], [place] [address] [place] [address] [phone] (Wo rk) Social History Tobacco Use Types [...] 09/15/2022 Appointment Orthopedics Delgado Gottlieb MD [address] [place], [place] [address] (Wo rk) 10/08/2022 Appointment Orthopedics Delgado Gottlieb MD [address] [place] [phone] (Wo rk) 05/27/2023 Appointment Chemo Therapy/Infusion Services documented as of this encounter Visit Diagnoses Not on filedocumented in this encounter Care Teams Machine Group Leader Relationship Specialty Start Date End Date Cintia Cobb MD PCP - General Family Practice 09/30/21 documented as of this encounter
--- OUTSIDE RECORDS SUMMARY | 2022-08-05 10:29 | XMS_ITS | Encounter Summary ---
:1960 Author Organization [employer] Address [address] [place] [address] Care Team Providers Name Role Phone Cintia Cobb MD Primary Care Provider [phone] Reason for Visit Reason Comments Nurse Return Call Request Low back pain Encounter Details Date Type Department Care Team Description 05/19/2022 Telephone [facility] Cesar Champagne Nurse Return Call [address] [facility] MD Terri Request (Low back pain) [place], [place] [address] [address] [facility] [phone] [address] [place] [address] Social History Tobacco Use Types [...] that normal? Please call the pt at [phone] and if no answer keep trying as he will be in and out of his truck. When did the issue start: over the weekend Have you been seen for this recently?: 03/14/22 Didier Delgado [Rose Grading Supervisor/Appt Center: If yes, please include date and provider.] Is it okay to leave detailed message on your voicemail? No keep trying [Rose Grading Supervisor/Appt Center: If this call is after 3 p.m., communicate to patient: If we are not able to get back to you by the end of the day and your symptoms worsen please contact the Careline] documented in this encounter Plan of Treatment Upcoming Encounters Date Type Specialty Care Team Description 09/15/2022 Appointment Orthopedics Delgado Gottlieb MD [address] [place], [place] [address] (Gavi presley) 10/08/2022 Appointment Orthopedics Delgado Gottlieb MD [address] [place], [place] [address] (Gavi presley) 05/27/2023 Appointment Chemo Therapy/Infusion Services documented as of this encounter Visit Diagnoses Not on filedocumented in this encounter Care Teams Metal Tank Builder Relationship Specialty Start Date End Date Cintia Cobb MD PCP - General Family Practice 09/30/21 documented as of this encounter
--- OUTSIDE RECORDS SUMMARY | 2022-08-05 10:29 | XMS_ITS | Encounter Summary ---
:1960 Author Organization [facility] Address [address] [place] [address] Care Team Providers Name Role Phone Cintia [...] Lt WO IV Cont [address] [place] [address] Referral ID Status Reason Start Date Expiration Date Visits V isits Requested Authorized [id number] Incomplete 06/25/2022 09/24/2023 1 1 Encounter Details Date Type Department Care Team Description 06/25/2022 [facility] Acute pain of left knee; Procedure Specialty Center Donnell Murray MD Closed fracture of distal end of left fe mur with routine healing, unspecified fracture morphology, subsequent encounter Radiology [address] [place] [address] [place], [place] [phone] [address] Social History Tobacco Use Types Packs/Day Years [...] 09/15/2022 Appointment Orthopedics Delgado Gottlieb MD [address] [place], [place] [address] (Wo rk) 10/08/2022 Appointment Orthopedics Delgado Gottlieb MD [address] [place], [place] [address] (Wo rk) 05/27/2023 Appointment [...] fract ure. Hardware partially seen on the windows infrastructure engineer images in the distal femur from lateral [...] fracture. Hardware parti ally seen on the windows infrastructure engineer images in the distal femur from lateral [...] r documented in this encounter Care Teams Checkerer Hand Relationship Specialty Start Date End Date Cintia Cobb MD PCP - General Family Practice 09/30/21 documented as of this encounter
--- OUTSIDE RECORDS SUMMARY | 2022-08-05 10:29 | XMS_ITS | Encounter Summary ---
:1960 Author Organization [facility] Address [address] [place] [address] Care Team Providers Name Role Phone Cintia Cobb MD Primary Care Provider [phone] Reason for Visit Procedure/Equipment (Routine) - Incomplete Specialty Diagnoses / Procedures Referred By Contact Refer red To Contact Diagnoses Closed nondisplaced fracture of left tibial plateau with routine healing, subsequent encounter Delgado Gottlieb MD Procedures XR Knee Lt [address] [place] [address] Referral ID Status Reason Start Date Expiration Date Visits V isits Requested Authorized [id number] Incomplete 08/04/2022 11/03/2023 1 1 Encounter Details Date Type Department Care Team Description 08/04/2022 [facility] Closed frac ture of Procedure Specialty Center Donnell Murray MD distal end of left Radiology [address] femur with routine [address] healing, [place] [address] [place], [place] unspecified [phone] fracture [phone] morphology, (Work) subsequent [phone] encounter (Fax) Social History Tobacco Use Types [...] 09/15/2022 Appointment Orthopedics Delgado Gottlieb MD [address] [place], [place] [address] (Wo rk) 10/08/2022 Appointment Orthopedics Delgado Gottlieb MD [address] [place], [place] [address] (Wo rk) 05/27/2023 Appointment Chemo Therapy/Infusion Services documented as of this encounter Procedures Procedure Name Priority Date/Time Associated Diagnosis Comme nts XR KNEE LT 2 VIEWS Routine 08/04/2022 12:52 PM Closed fracture of Results for this LODGE SALES ASSOCIATE distal end of left procedure are in femur with routine the resul ts healing, unspecified section . fracture morphology, subsequent encounter documented in this encounter Results XR Knee Lt 2 Views (08/04/2022 12:52 PM LODGE SALES ASSOCIATE) Anatomical Region Laterality Modality Lower Extremity, Knee Computed Radiograp hy Specimen (Source) Anatomical Collection Method Collection Time Re ceived Time Location / / Volume Laterality 08/04/2022 12:52 PM LODGE SALES ASSOCIATE Narrative 08/04/2022 6:53 PM LODGE SALES ASSOCIATE EXAM: XR KNEE LT 2 VIEWS LOCATION: [facility] 435 DATE/TIME: 08/04/2022 12:52 PM INDICATION: Left [...] XR KNEE LT 2 VIEWS LOCATION: [facility] 435 DATE/TIME: 08/04/2022 12:52 PM INDICATION: Left [...] r documented in this encounter Care Teams Advertising Teacher Relationship Specialty Start Date End Date Cintia Cobb MD PCP - General Family Practice 09/30/21 documented as of this encounter
--- OUTSIDE RECORDS SUMMARY | 2022-08-05 10:29 | XMS_ITS | Encounter Summary ---
:1960 Author Organization [facility] Address [address] [place] [address] Care Team Providers Name Role Phone Cintia Cobb MD Primary Care Provider [phone] Encounter Details Date Type Department Care Team Description 06/23/2022 Telephone Specialty Center [address] Delgado Gottlieb MD Orthopedics Clinic [address] [place] [address]. [place] [address] [place] [address] [phone] Social History Tobacco Use Types Packs/Day Years [...] Description 09/15/2022 Appointment Orthopedics Delgado Gottlieb MD [address] [place] [phone] (Gavi presley) 10/08/2022 Appointment Orthopedics Delgado Gottlieb MD [address] [place] [phone] (Wo rk) 05/27/2023 Appointment Chemo Therapy/Infusion Services documented as of this encounter Visit Diagnoses Not on filedocumented in this encounter Care Teams Spray Mixer Relationship Specialty Start Date End Date Cintia Cobb MD PCP - General Family Practice 09/30/21 documented as of this encounter
--- OUTSIDE RECORDS SUMMARY | 2022-08-05 10:29 | XMS_ITS | Encounter Summary ---
:1960 Author Organization [facility] Address [address] [place] [address] Care Team Providers Name Role Phone Cintia Cobb MD Primary Care Provider [phone] Reason for Visit Procedure/Equipment (Routine) - Incomplete Specialty Diagnoses / Procedures Referred By Contact Refer red To Contact Diagnoses Closed fracture of distal end of left femur with routine healing, unspecified fracture morphology, subsequent encounter Delgado Gottlieb MD Procedures XR Knee Lt [address] [place] [address] Referral ID Status Reason Start Date Expiration Date Visits V isits Requested Authorized [id number] Incomplete 07/07/2022 10/06/2023 1 1 Encounter Details Date Type Department Care Team Description 07/07/2022 [facility] Closed frac ture of Procedure Specialty Center Donnell Murray MD distal end of left Radiology [address] femur with routine [address] healing, [place] [address] [place], [place] unspecified [phone] fracture [phone] morphology, (Work) subsequent [phone] encounter (Fax) Social History Tobacco Use Types [...] 09/15/2022 Appointment Orthopedics Delgado Gottlieb MD [address] [place], [place] [address] (Wo rk) 10/08/2022 Appointment Orthopedics Delgado Gottlieb MD [address] [place], [place] [address] (Wo rk) 05/27/2023 Appointment [...] EXAM: XR KNEE LT 2 VIEWS LOCATION: [place] [address] DATE/TIME: 07/07/2022 12:47 PM INDICATION: Left distal [...] EXAM: XR KNEE LT 2 VIEWS LOCATION: [facility] 435 DATE/TIME: 07/07/2022 12:47 PM INDICATION: [...] r documented in this encounter Care Teams Mercantile Agent Relationship Specialty Start Date End Date Cintia Cobb MD PCP - General Family Practice 09/30/21 documented as of this encounter
--- OUTSIDE RECORDS SUMMARY | 2022-08-05 10:29 | XMS_ITS | Encounter Summary ---
:1960 Author Organization [facility] Address [address] [place] [address] Care Team Providers Name Role Phone Cintia Cobb MD Primary Care Provider [phone] Reason for Visit Reason Comments Medication Questions Encounter Details Date Type Department Care Team Description 06/13/2022 Refill [facility] Cesar Champagne, Medication Questions [address] [place], [place] [address] [address] [phone] [place] [phone] (Wo rk) Social History Tobacco Use [...] encounter Nursing Notes Mehreen Bolton RN - 06/13/2022 4:32 PM CDT Meds refilled. Called pt to inform. LVM and advise on follow up if pain continues Mehreen Bolton RN - 06/13/2022 1:13 PM CDT S/P [...] 09/15/2022 Appointment Orthopedics Delgado Gottlieb MD [address] [place], [place] [address] (Gavi rk) 10/08/2022 Appointment Orthopedics Delgado Gottlieb MD [address] [place], [place] [address] (Gavi presley) 05/27/2023 Appointment Chemo Therapy/Infusion Services documented as of this encounter Visit Diagnoses Not on filedocumented in this encounter Care Teams Foreign Exchange Trader Relationship Specialty Start Date End Date Cintia Cobb MD PCP - General Family Practice 09/30/21 documented as of this encounter
--- OUTSIDE RECORDS SUMMARY | 2022-08-05 10:29 | XMS_ITS | Encounter Summary ---
:1960 Author Organization [employer] Address [address] [place] [address] Care Team Providers Name Role Phone Cintia Cobb MD Primary Care Provider [phone] Reason for Referral Procedure/Equipment (Routine) - Incomplete Specialty Diagnoses / Procedures Referred By Contact Refer red To Contact Diagnoses Closed nondisplaced fracture of left tibial plateau, initial encounter Closed fracture of distal end of left femur with routine healing, unspecified fracture morphology, subsequent encounter Delgado Gottlieb MD Procedures CT Knee Lt WO IV Cont [address] [place] [address] Referral ID Status Reason Start Date Expiration Date Visits V isits Requested Authorized [id number] Incomplete 06/25/2022 09/24/2023 1 1 Reason for Visit Reason Comments Revisit Encounter Details Date Type Department Care Team Description 06/25/2022 Office Visit Specialty Center Delgado Gottlieb, Domenica sed nondisplaced fracture of left tibial plateau, initial encounter (Primary Dx); [address] [facility] Closed fracture of distal end of left fe mur with routine healing, unspecified fracture morphology, subsequent [facility] [address] [place] [address] [place], [place] [phone] [address] Social History Tobacco Use Types Packs/Day Years [...] as of this encounter Patient Instructions Patient InstructionsSidaryl Zenaida Fields, PRIVATE WATCHMAN - 06/25/2022 11:00 AM CDT ORTHOPAEDICS DEPARTMENT PHONE NUMBER: [phone] Reason for today's visit: Follow up- ORIF [...] TIME PROVIDER LOCATION APPT NOTES ( ) [facility]: [address] [place] [address] ( ) [facility]: [address] [place], [place] ( ) Other: Follow up- ORIF Left supracondylar distal femur fracture, utilizing both plate and nail fixation DOS: 10/01/2021 ( ) [facility]: [address] [place] [address] ( ) [facility] [address] [place], [place] ( ) Other: If you have any questions about your visit, your symptoms, your medication, your test results or it is not clear what your diagnosis or treatment plan is please contact us at [phone] or send us a secure message via Pickie. You may receive surveys via mail, e-mail or text regarding your visit and recovery. Your feedback isvery important to us. Please take a moment to complete them. If you would like to speak to someone specifically, you may contact the clinic at [phone] and your call will be directed to someone on our leadership team. Thank you for choosing [facility]. If you need to schedule an appointment, you may call our office at [phone]. We are open Thursday-Thursday 8 am - [...] to work as soon as able. 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 His left leg is important for driving, [...] agreement with this plan. Delgado Gottlieb MD Template Checker [facility] Department of Orthopaedic Surgery [facility] documented in this encounter Plan of Treatment Upcoming Encounters Date Type Specialty Care Team Description 09/15/2022 Appointment Orthopedics Delgado Gottlieb MD [address] [place] [phone] (Gavi rk) 10/08/2022 Appointment Orthopedics Delgado Gottlieb MD [address] [place] [phone] (Gavi presley) 05/27/2023 Appointment Chemo [...] LT WO IV CONT LOCATION: [facility] DATE/TIME: 06/25/2022 11:21 AM INDICATION: Tibial [...] fract ure. Hardware partially seen on the engineering systems analyst images in the distal femur from lateral [...] fracture. Hardware parti ally seen on the engineering systems analyst images in the distal femur from lateral [...] r documented in this encounter Care Teams Cream Dipper Relationship Specialty Start Date End Date Cintia Cobb MD PCP - General Family Practice 09/30/21 documented as of this encounter
--- OUTSIDE RECORDS SUMMARY | 2022-08-05 10:29 | XMS_ITS | Encounter Summary ---
:1960 Author Organization [email or web address] Address [address] [place] [address] Care Team Providers Name Role Phone Cintia Cobb MD Primary Care Provider Reason for Visit Reason Comments QUESTIONS, GENERAL Encounter Details Date Type Department Care Team Description 06/16/2022 Telephone Specialty Center [address] Delgado Gottlieb MD QUESTIONS, GENERAL Orthopedics Clinic [address] [place] [address] [place] [address] [phone] Social History Tobacco Use Types Packs/Day Years [...] Thursday. Called and spoke with Xiao at [facility] and requested images be pushed to PACS. Patient called and notified of the information from Dr Gottlieb. He was transferred through to [facility]. Rosetta Ye RN 06/23/2022, 10:05 AM Rosetta Ye RN - 06/23/2022 9:06 AM CDT Patient is calling back stating I think I broke my leg. He states that he fell Thursday morning at7:30. He states he felt and heard something snap. He states he landed on his knee cap. He states he was brought by ambulance to [place] and they did imaging, but did not [...] Ye RN - 06/19/2022 3:07 PM CDT [facility] at [phone] and follow the prompt for [facility] and ask to speak with one of the nurses. Rosetta Ye RN 06/19/2022, 3:07 PM Delgado Gottlieb MD - 06/19/2022 2:29 PM CDT Sorry [...] Ye RN 06/17/2022, 9:11 AM TR at [phone] and follow the prompt for [facility] and ask to speak with one of the nurses. Rosetta Ye RN 06/17/2022, 9:19 AM Rosetta Lee RN - 06/17/2022 8:26 AM CDT [facility] at [phone] and follow the prompt for [facility] and ask to speak with one of the nurses. Rosetta Ye RN 06/17/2022, 8:27 AM Britany Lopez - 06/16/2022 9:22 AM CDT Patient called requesting to speak to Rosetta, he won't give any other information, or why he is calling just requests to speak to Rosetta only. Please contact patient to advise. Britany Lopez 06/16/2022, 9:24 AM documented in this encounter Plan of Treatment Upcoming Encounters Date Type Specialty Care Team Description 09/15/2022 Appointment Orthopedics Delgado Gottlieb MD [address] [place] [phone] (Wo rk) 10/08/2022 Appointment Orthopedics Delgado Gottlieb MD [address] [place] [phone] (Wo rk) 05/27/2023 Appointment Chemo Therapy/Infusion Services documented as of this encounter Visit Diagnoses Not on filedocumented in this encounter Care Teams Lumber Grader Relationship Specialty Start Date End Date Cintia Cobb MD PCP - General Family Practice 09/30/21 documented as of this encounter
--- OUTSIDE RECORDS SUMMARY | 2022-08-05 10:29 | XMS_ITS | Encounter Summary ---
:1960 Author Organization [employer] Address [address] [address] Care Team Providers Name Role Phone Cintia Cobb MD Primary Care Provider [phone] Reason for Visit Reason Comments QUESTIONS, GENERAL Encounter Details Date Type Department Care Team Description 06/17/2022 Telephone [facility] Cesar Champagne, QUESTIONS, GENERAL [address] [place], [place] [address] [address] [phone] [place] [phone] (Wo rk) Social History Tobacco Use [...] for a call back. Would not give sign writer hand any information regarding why he is calling only states that he needs to speak with Nathalia and it is an emergency. documented in this encounter Plan of Treatment Upcoming Encounters Date Type Specialty Care Team Description 09/15/2022 Appointment Orthopedics Delgado Gottlieb MD [address] [place] [phone] (Gavi presley) 10/08/2022 Appointment Orthopedics Delgado Gottlieb MD [address] [place], [place] [address] (Gavi presley) 05/27/2023 Appointment Chemo Therapy/Infusion Services documented as of this encounter Visit Diagnoses Not on filedocumented in this encounter Care Teams Child Development Associate Teacher Relationship Specialty Start Date End Date Cintia Cobb MD PCP - General Family Practice 09/30/21 documented as of this encounter
--- OUTSIDE RECORDS SUMMARY | 2022-08-05 10:29 | XMS_ITS | Encounter Summary ---
:1960 Author Organization [employer] Address [address], [place] [address] Care Team Providers Name Role Phone Cintia Cobb MD Primary Care Provider [phone] Reason for Referral Procedure/Equipment (Routine) - Incomplete Specialty Diagnoses / Procedures Referred By Contact Refer red To Contact Diagnoses Closed fracture of distal end of left femur with routine healing, unspecified fracture morphology, subsequent encounter Delgado Gottlieb MD Procedures XR Knee Lt [address] [place] [address] Referral ID Status Reason Start Date Expiration Date Visits V isits Requested Authorized [id number] Incomplete 07/07/2022 10/06/2023 1 1 Reason for Visit Reason Comments FOLLOW-UP,FRACTURE Encounter Details Date Type Department Care Team Description 07/07/2022 Office Visit Specialty Center Delgado Gottlieb, Domenica sed fracture of [address] [facility] distal end of left [address] [place] [place] [address] [place], [place] healing, unspecified [phone] fracture morphology, subsequent enco unter (Work) [...] 1:20 PM CDT ORTHOPAEDICS DEPARTMENT PHONE NUMBER: [phone] Reason for today's visit: Non displaced tibial [...] PROVIDER LOCATION APPT NOTES ( ) [facility]: [address] [place] [address] ( ) [facility]: [address] [place] [address] ( ) Other: F/u Non displaced tibial plateau fracture. Pressure sore. ( ) [facility]: [address] [place] [address] ( ) [address] ( ) Other: If you have any questions about your visit, your symptoms, your medication, your test results or it is not clear what your diagnosis or treatment plan is please contact us at [phone] or send us a secure message via Rapleaf. You may receive surveys via mail, e-mail or text regarding your visit and recovery. Your feedback isvery important to us. Please take a moment to complete them. If you would like to speak to someone specifically, you may contact the clinic at [phone] and your call will be directed to someone on our leadership team. Thank you for choosing [facility]. If you need to schedule an appointment, you may call our office at [phone]. We are open Thursday-Thursday 8 am - [...] such as a splint or brace. 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 Therefore he will continue with his prior pain control regimen which was primarily [id number] medication, ice, and elevation. If he does figure out a way to pick and shovel worker medication at a pharmacy and would like [...] contain unintended word substitutions. Delgado Gottlieb MD Circuits Engineer [facility] Department of Orthopaedic Surgery [facility] documented in this encounter Plan of Treatment Upcoming Encounters Date Type Specialty Care Team Description 09/15/2022 Appointment Orthopedics Delgado Gottlieb MD [address] [place] [phone] (Gavi presley) 10/08/2022 Appointment Orthopedics Delgado Gottlieb MD [address] [place] [phone] (Gavi presley) 05/27/2023 Appointment Chemo [...] EXAM: XR KNEE LT 2 VIEWS LOCATION: [facility] 435 DATE/TIME: 07/07/2022 12:47 PM INDICATION: [...] r documented in this encounter Care Teams Stone Engraver Relationship Specialty Start Date End Date Cintia Cobb MD PCP - General Family Practice 09/30/21 documented as of this encounter
--- OUTSIDE RECORDS SUMMARY | 2022-08-05 10:29 | XMS_ITS | Encounter Summary ---
:1960 Author Organization [facility] Address [address] [facility] [place] [address] Care Team Providers Name Role Phone Cintia Cobb MD Primary Care Provider [phone] Reason for Visit Reason Comments Nurse Return Call Request Requesting to speak with RN Encounter Details Date Type Department Care Team Description 07/22/2022 Telephone [facility] Delmer Valladares, Nurse Return Call CENTER EMMA Request (Requesting to [address] [place] [address] Dr speak with RN) [place], [place] [address] [place], [place] [phone] (Wo rk) Social History Tobacco Use Types [...] could consider it in the future. Delmer ING MACHINE OPERATOR ELECTROSLAG Loly Kelley RN - 07/23/2022 9:14 AM [...] healing? Sending to Delmer to further advise ING MACHINE OPERATOR ELECTROSLAG Nancy Herrera - 07/22/2022 2:29 PM CST Has the [...] you been seen for this recently?: n/a [Disposal Plant Operator/Appt Center: If yes, please include date and provider.] Is it okay to leave detailed message on your voicemail? No voicemail set up per patient. Please callpatient's mobile at [phone] per request. [Disposal Plant Operator/Appt Center: If this call is after 3 p.m., communicate to patient: If we are not able to get back to you by the end of the day and your symptoms worsen please contact the Careline] ING MACHINE OPERATOR ELECTROSLAG documented in this encounter Plan of Treatment Upcoming Encounters Date Type Specialty Care Team Description 09/15/2022 Appointment Orthopedics Delgado Gottlieb MD [address] [place], [place] [address] (Wo rk) 10/08/2022 Appointment Orthopedics Delgado Gottlieb MD [address] [place], [place] [address] (Wo rk) 05/27/2023 Appointment Chemo Therapy/Infusion Services documented as of this encounter Visit Diagnoses Not on filedocumented in this encounter Care Teams Intern Architect Relationship Specialty Start Date End Date Cintia Cobb MD PCP - General Family Practice 09/30/21 documented as of this encounter
--- OUTSIDE RECORDS SUMMARY | 2022-08-05 10:29 | XMS_ITS | Encounter Summary ---
:1960 Author Organization [facility] Address [address] [place] [address] Care Team Providers Name Role Phone Cintia Cobb MD Primary Care Provider Encounter Details Date Type Department Care Team Description 06/16/2022 Notes/Orders [facility] ANNI Cesar Champagne, [address] [place], [place] [address] [address] [address] [place] [address] (Gavi rk) Social History Tobacco [...] Description 09/15/2022 Appointment Orthopedics Delgado Gottlieb MD [address] [place] [phone] (Gavi rk) 10/08/2022 Appointment Orthopedics Delgado Gottlieb MD [address] [place] [address] (Wo rk) 05/27/2023 Appointment Chemo Therapy/Infusion Services documented as of this encounter Visit Diagnoses Not on filedocumented in this encounter Care Teams Bologna Lacer Relationship Specialty Start Date End Date Cintia Cobb MD PCP - General Family Practice 09/30/21 documented as of this encounter
--- OUTSIDE RECORDS SUMMARY | 2022-08-05 10:30 | XMS_ITS | Encounter Summary ---
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 Freddy Delgado PA-C [address] [place], [place] [address] Referral ID Status Reason Start Date Expiration Date Visits Requ ested Visits Authorized [id number] Closed 03/14/2022 03/14/2023 1 1 Scheduling Instructions [...] Description 03/14/2022 Office Visit [facility] Freddy Delgado Statu s post lumbar CENTER EMMA spine surgery for [address] decompression of [place] [id number] spinal cord (Primary [phone] [place], [place] Dx) [id number] Social History Tobacco Use Types Packs/Day Years [...] 9:04 AM CDT Thank you for Choosing [facility] for your health care visit today. Didier Delgado PA-C Orthopaedic Physician Income Tax Expert You were provided with an order for physical therapy to focus on core stabilization and stretching and strengthening of lower extremities and postural training Medication Requests: Prescriptions are not filled on weekends or on weekdays after 3:00 PM. For all medication refills: Request a refill using [employer] or contact your pharmacy. What is Know Your Cost? Know Your Cost is a service for patients and patient/members to call and receive personalized cost information and estimates across our care group. The phone number is (COST) Thursday - Thursday 8 AM to 5 PM Advanced Imaging Scheduling: To schedule an MRI, Ultrasound, or Image guided injection at [facility] please call [phone]. To schedule an MRI or CT at a [facility] please call [phone]. [facility] Workers' Compensation [address] [place] [address] (Phone) Email: [email or web address] Release of Information: Radiology/Imaging [address] [place], [place] [address] (Phone) Health Information Management [address] [place], [place] [address] (Phone) tu.nr documented in this encounter Progress Notes Freddy Delgado PA-C - 03/14/2022 12:00 AM CDT NAME: LAZ LUNA CSN: [id number] CLINIC NOTE DATE OF SERVICE: 03/14/2022 : [...] further questions or concerns in the meantime. EMMA MELGOZA/JOSEPH /[id number] documented in this encounter Plan of Treatment Upcoming Encounters Date Type Specialty Care Team Description 09/15/2022 Appointment Orthopedics Delgado Gottlieb MD [address] [place] [address] (Gavi rk) 10/08/2022 Appointment Orthopedics Delgado Gottlieb MD [address] [place] [phone] (Gavi presley) 05/27/2023 Appointment Chemo Therapy/Infusion Services Scheduled Referrals Name Type Priority Associated Diagnoses Order S chedule Physical Therapy Referral Routine Status post lumbar spine Ordered: 03/14/2022 surgery for decompression of spinal cord documented as of this encounter Visit Diagnoses Diagnosis Status post lumbar spine surgery for dec ompression of spinal cord - Primary documented in this encounter Care Teams Unattended Ground Sensor Specialist Relationship Specialty Start Date End Date Cintia Cobb MD PCP - General Family Practice 09/30/21 documented as of this encounter
--- OUTSIDE RECORDS SUMMARY | 2022-08-05 10:30 | XMS_ITS | Encounter Summary ---
:1960 Author Organization [facility] Address [address] [place] [address] Care Team Providers Name Role Phone Cintia Cobb MD Primary Care Provider [phone] Reason for Visit Reason Comments APPOINTMENT REQUEST Pt requesting to have his po stop appt first thing in the morning due to work commitment. Encounter Details Date Type Department Care Team Description 02/04/2022 Telephone [facility] Freddy Delgado, APPOI NTMENT REQUEST CENTER EMMA (Pt requesting to have [address] his postop appt first [place], [place] [address] [place], [place] thing in the morning [phone] due to work [phone] (Wo rk) commitment. ) Social History Tobacco [...] you been seen for this recently?: n/a [Agricultural And Forestry Supervisor/Appt Center: If yes, please include date and provider.] Is it okay to leave detailed message on your voicemail? yes [Agricultural And Forestry Supervisor/Appt Center: If this call is after 3 p.m., communicate to patient: If we are not able to get back to you by the end of the day and your symptoms worsen please contact the Careline] documented in this encounter Plan of Treatment Upcoming Encounters Date Type Specialty Care Team Description 09/15/2022 Appointment Orthopedics Delgado Gottlieb MD [address] [place], [place] [address] (Gavi presley) 10/08/2022 Appointment Orthopedics Delgado Gottlieb MD [address] [place] [phone] (Gavi presley) 05/27/2023 Appointment Chemo Therapy/Infusion Services documented as of this encounter Visit Diagnoses Not on filedocumented in this encounter Care Teams Book Editor Relationship Specialty Start Date End Date Cintia Cobb MD PCP - General Family Practice 1/24/22 documented as of this encounter
--- OUTSIDE RECORDS SUMMARY | 2022-08-05 10:30 | XMS_ITS | Encounter Summary ---
:1960 Author Organization [employer] Address [address] [place] [address] Care Team Providers Name Role Phone Cintia Cobb MD Primary Care Provider [phone] Reason for Visit Auth/Cert Specialty Diagnoses / Procedures Referred By Contact Refer red To Contact Diagnoses Lumbar stenosis with neurogenic claudication Procedures Bilateral Lumbar 2-Lumbar 4 Decompression Foraminotomy Referral ID Status Reason Start Date Expiration Date Visits Requ ested Visits Authorized [id number] 1 1 Encounter Details Date Type Department Care Team Description 01/27/2022 Surgery Yarsanism Operating Everardo Scherer Lumbar 2-Lumbar Room MD Terri 4 [address] [facility] Foraminotomy [place], [place] [address] [place], [place] [phone] [address] Social History Tobacco Use Types Packs/Day [...] 05/28 20 MG capsule daily. Sennosides (SENOKOT 0 OR) tamsulosin (FLOMAX) Take 0.8 mg by mouth 0 2021 0.4 MG CAPS capsule daily. oxyCODONE (ROXICODONE) Take 1-2 Tablets (5-10 25 Tablet 0 0 01/27/2022 08/04/2022 5 MG immediate release mg) by mouth every 4 tablet hours as needed for Pain. documented as of this encounter Progress Notes AlyseDilcia massey RN - 01/27/2022 6:49 PM CDT Patient [...] told patient that she would page the southeast regional sales manager MD. Patient refused because he wanted to [...] Delgado PA-C - 01/27/2022 2:[address] [facility] Brief Operative Progress Note Surgery Date: 01/27/2022 [...] planned. See operative note. Didier Delgado PA-C [phone] Everardo Scherer MD - 01/27/2022 12:00 AM CDT NAME: NO[facility] LUNA [facility]: [id number] OPERATIVE REPORT DATE OF SURGERY: 01/27/2022 : 1960 SURGEON: EVERARDO SCHERER MD INFORMATION TECHNOLOGY ACCOUNT MANAGER: Freddy Delgado PA-C. PREOPERATIVE DIAGNOSIS: Bilateral spinal [...] 2 and 3 mm Kerrisons. My assistant brand manager protected the neural elements through the decompression. Subarticular decompression was obtained with decompression ofthe transversing lumbar 3 and 4 nerve roots. Finally formal foraminal decompression was carried out with my assistant brand manager protecting the exiting L2 and 3 nerve [...] and there were no specimens sent. Mr. Contrerasshua EMMA Delgado was used through the entirety of the surgical procedure to safelyretract the neural elements which provided safety for the patient through this surgical procedure. EVERARDO SCHERER MD JNIKHIL/AQS /[id number] documented in this encounter Miscellaneous Notes OR Nursing - Lesli Ng RN - 01/24/2022 3:42 PM CDT Pre-Procedure Assessment, PPA. Patient reports pre-procedure Covid-19 test done in [place] at [facility] on Thursday, January 24. Results will be available in Care Everywhere. Last HGB 7.6 on 12/31/21; Paged to notify HGB result, dx chronic anemia. Anesthesiologist notified of upcoming procedure and HGB 7.6 with recent hx requiring blood transfusion after emergency surgery [facility] No orders received. History and Physical also noted an open wound to right lower extremity being treated at a wound clinic in [place]; page to Dr. Scherer included FYI regarding wound. When patient received NPO instructions, he stated, Well I've had other surgeries when I have eaten breakfast and didn't have any problems. Framing Mill Operator attempted to explain [facility] NPO policy is in place for his health and safety; Dr. Scherer's office notified. documented in this encounter Plan of Treatment Upcoming Encounters Date Type Specialty Care Team Description 09/15/2022 Appointment Orthopedics Delgado Gottlieb MD [address] [place], [place] [address] (Gavi presley) 10/08/2022 Appointment Orthopedics Delgado Gottlieb MD [address] [place] [phone] (Gavi presley) 05/27/2023 Appointment Chemo [...] 2:25 PM CDT) Analysis Performed At [facility] Time Signature Glucose, Whole 110 70 - 180 01/27/2022 [facility] Blood mg/dL 2:26 PM CDT LABORATORY Performing MT PACU 01/27/2022 [facility] Location 2:26 PM CDT LABORATORY Specimen Anatomical Collection Method Collection Time Receive d Time (Source) Location / / Volume Laterality Blood 01/27/2022 2:25 PM 2 2:26 CDT PM CDT Everardo Scherer MD LAB_1 Performing Organization Address [facility] Code Phon e Number [facility] LABORATORY [address] [place] [address] Antibody Screen (01/27/2022 11:46 AM CDT) Patholo gist Method Time Signature Antibody Screen Negative 01/27/2022 [facility] Interpretation 12:50 PM CDT BLOOD BANK Specimen Anatomical Collection Method / Collection Time Recei shahid Time (Source) Location / Volume Laterality Blood Venipuncture / 01/27/2022 11:46 2 Unknown AM CDT 11:51 AM CDT Efra Javier MD LAB_1 Performing Organization Address [facility] Phon e Number [facility] BLOOD BANK [address] [place] [address] Blood Type (01/27/2022 11:46 AM CDT) P athologist Signature ABO A 01/27/2022 [facility] 12:35 PM CDT BLOOD BANK RH Positive 01/27/2022 [facility] 12:35 PM CDT BLOOD BANK Specimen Anatomical Collection Method / Collection Time Recei shahid Time (Source) Location / Volume Laterality Blood Venipuncture / 01/27/2022 11:46 2 Unknown AM CDT 11:51 AM CDT Efra Javier MD LAB_1 Performing Organization Address [facility] Code Phon e Number [facility] BLOOD BANK [address] [place] [address] Glucose, Whole Blood POCT (01/27/2022 10:53 AM CDT) Analysis Performed At Patho logist Time Signature Glucose, Whole 105 70 - 180 01/27/2022 [facility] Blood mg/dL 10:54 AM CDT LABORATORY Performing MT SURG 01/27/2022 [facility] Location 10:54 AM CDT LABORATORY Specimen Anatomical Collection Method Collection Time Receive d Time (Source) Location / / Volume Laterality Blood 01/27/2022 10:53 01/27/2022 AM CDT 10:54 AM CDT Everardo Scherer MD LAB_1 Performing Organization Address City/State/ZIP Code Phon e Number [facility]OR[facility] [address] [place] [address] documented in this encounter Visit Diagnoses Diagnosis [...] 1:39 PM CDT 8 mL (SENSORCAINE) 0.25% -1:537919 injection ONCE PRN, Starting on Thu01/27/22 at 1339, Until Thu01/27/22 at 2056, Intra-op dextrose 5 % infusion at 250 mL/hr, ONCE PRN, Other, for nausea if all other options have failed and patient is not diabetic., Starting on Thu01/27/22 at 0 823, For 1 dose, PACU/Recovery fentaNYL (SUBLIMAZE) injection 25-50 mcg 25-50 mcg, Intravenous, [id number], Other, Moderate to Severe Pain (pain score [...] (DEMEROL) injection 12.5 mg 12.5 mg, Intravenous, [id number], Shiverin g, Starting on Thu01/27/22 at 0823, [...] [id number])[id number] (Started - Provider: Abhay Salas APRN, LUZMA) 25 mL/hr, Intravenous, CONTINUOUS, Start ing on [...] Thu01/27/22 at 1446, Until Thu01/27/22 at 2056, Give if able to take oral medications. Give for mild pain or if patient prefers acetaminophen over other options for pain (all pain scores)., Po st-op bupivacaine-epinephrine (SENSORCAINE) 0.25% -1:524692 injection 1339 (Given - Provider: Everardo Scherer MD) ONCE PRN, Starting on Thu01/27/22 at 1339, Until Thu01/27/22 at 2056, Intra-op dextrose 5 % infusion at 250 mL/hr, ONCE PRN, Other, for nause a if all other options have failed and patient is not diabetic., Starting on Thu01/27/22 at 0823, For 1 dose, PACU/Recovery fentaNYL (SUBLIMAZE) injection 25-50 mcg 25-50 mcg, Intravenous, [id number], Other, Moderate to Severe Pain (pain score [...] (DEMEROL) injection 12.5 mg 12.5 mg, Intravenous, [id number], Shiverin g, Starting on Thu01/27/22 at 0823, [...] PACU/Recovery documented in this encounter Care Teams Boat Captain Relationship Specialty Start Date End Date Cintia Cobb MD PCP - General Family Practice 09/30/21 documented as of this encounter
--- OUTSIDE RECORDS SUMMARY | 2022-08-05 10:30 | XMS_ITS | Encounter Summary ---
:1960 Author Organization [facility] Address [address] [place] [address] Care Team Providers Name Role Phone Cintia Cobb MD Primary Care Provider [phone] Reason for Visit Procedure/Equipment (Routine) - Incomplete Specialty Diagnoses / Procedures Referred By Contact Refer red To Contact Diagnoses Closed fracture of distal end of left femur with routine healing, unspecified fracture morphology, subsequent encounter Delgado Gottlieb MD Procedures XR Femur Lt [address] [place] [address] Referral ID Status Reason Start Date Expiration Date Visits V isits Requested Authorized [id number] Incomplete 04/02/2022 07/02/2023 1 1 Encounter Details Date Type Department Care Team Description 04/02/2022 [facility]illary [facility] Closed frac ture of Procedure Specialty Center Donnell Murray MD distal end of left Radiology [address] femur with routine [address] healing, [place] [address] [place], [place] unspecified [phone] fracture [phone] morphology, (Work) subsequent [phone] encounter (Fax) Social History Tobacco Use Types [...] 09/15/2022 Appointment Orthopedics Delgado Gottlieb MD [address] [place], [place] [address] (Wo rk) 10/08/2022 Appointment Orthopedics Delgado Gottlieb MD [address] [place], [place] [address] (Wo rk) 05/27/2023 Appointment [...] r documented in this encounter Care Teams Gear Nicker Relationship Specialty Start Date End Date Cintia Cobb MD PCP - General Family Practice 09/30/21 documented as of this encounter
--- OUTSIDE RECORDS SUMMARY | 2022-08-05 10:30 | XMS_ITS | Encounter Summary ---
:1960 Author Organization [employer] Address [address], [place] [address] Care Team Providers Name Role Phone Cintia Cobb MD Primary Care Provider [phone] Reason for Referral Procedure/Equipment (Routine) - Incomplete Specialty Diagnoses / Procedures Referred By Contact Refer red To Contact Diagnoses Closed fracture of distal end of left femur with routine healing, unspecified fracture morphology, subsequent encounter Delgado Gottlieb MD Procedures XR Femur Lt [address] [place] [address] Referral ID Status Reason Start Date Expiration Date Visits V isits Requested Authorized [id number] Incomplete 04/02/2022 07/02/2023 1 1 Reason for Visit Reason Comments KNEE PAIN Encounter Details Date Type Department Care Team Description 04/02/2022 Office Visit Specialty Center Delgado Gottlieb, Domenica sed fracture of [address] [facility] distal end of left [address] [place] [address] [place] healing, unspecified [phone] fracture morphology, subsequent enco unter (Work) [...] 7:40 AM CDT ORTHOPAEDICS DEPARTMENT PHONE NUMBER: [phone] Reason for today's visit: Open reduction internal fixation of left supracondylar distal femur fracture, utilizing both plate and nail fixation. DOS 10/01/2021 Treatment plan: Weight bearing and activities as tolerated If you continue to have pain over the location of the screw tips at the next visit, we may get a CT scan to see what screws are prominent and guide further treatment. [facility]: [phone] Follow up appointments: You will follow up [...] TIME PROVIDER LOCATION APPT NOTES ( ) [facility]: [address] [place] [address] ( ) [facility]: [address] [place] [address] ( ) Other: Open reduction internal fixation of left supracondylar distal femur fracture, utilizing both plate and nail fixation. DOS 10/01/2021 ( ) [facility]: [address] [place] [address] ( ) [facility] [address] [place], [place] ( ) Other: If you have any questions about your visit, your symptoms, your medication, your test results or it is not clear what your diagnosis or treatment plan is please contact us at [phone] or send us a secure message via [employer]. You may receive surveys via mail, e-mail or text regarding your visit and recovery. Your feedback isvery important to us. Please take a moment to complete them. If you would like to speak to someone specifically, you may contact the clinic at [phone] and your call will be directed to someone on our leadership team. Thank you for choosing Delgado Gottlieb MD and [facility]. If you need to schedule an appointment, you may call our office at [phone]. We are open Thursday-Thursday 8 am - [...] cut. 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 He is still in physical therapy but this is now more focused on his lower back as he had a surgery on this in January. 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 Delgado Gottlieb MD [employer] [facility] Department of Orthopaedic Surgery [facility] documented in this encounter Plan of Treatment Upcoming Encounters Date Type Specialty Care Team Description 09/15/2022 Appointment Orthopedics Delgado Gottlieb MD [address] [place], [place] [address] (Gavi presley) 10/08/2022 Appointment Orthopedics Delgado Gottlieb MD [address] [place], [place] [address] (Gavi presley) 05/27/2023 Appointment [...] EXAM: XR FEMUR LT 2 VIEWS LOCATION: [facility] 435 DATE/TIME: 04/02/2022 7:48 AM INDICATION: Open reduction internal fixa tion of left supracondylar distal femur fracture COMPARISON: 11/27/2021 IMPRESSION: ORIF of a distal left femur fracture. No interval hardware complication. Progressive incomplete healing. Procedure Note Sebas Thompson MD - 04/02/2022Formatti ng of this note might be different from the original. EXAM: XR FEMUR LT 2 VIEWS LOCATION: [facility] 435 DATE/TIME: 04/02/2022 7:48 AM INDICATION: [...] r documented in this encounter Care Teams Drafting Instructor Relationship Specialty Start Date End Date Cintia Cobb MD PCP - General Family Practice 09/30/21 documented as of this encounter
--- OUTSIDE RECORDS SUMMARY | 2022-08-05 10:30 | XMS_ITS | Encounter Summary ---
:1960 Author Organization [employer] Address [address] [place] [address] Care Team Providers Name Role Phone Cintia Cobb MD Primary Care Provider [phone] Reason for Visit Reason Comments QUESTIONS, GENERAL Left Leg Encounter Details Date Type Department Care Team Description 03/17/2022 Telephone Specialty Center [address] Delgado Gottlieb, QUESTIONS, GENERAL [facility]opedics [facility]Left Leg) [facility] 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 He states he is also havinga sharp [...] 09/15/2022 Appointment Orthopedics Delgado Gottlieb MD [address] [place], [place] [address] (Gavi presley) 10/08/2022 Appointment Orthopedics Delgado Gottlieb MD [address] [place], [place] [address] (Gavi presley) 05/27/2023 Appointment Chemo Therapy/Infusion Services documented as of this encounter Visit Diagnoses Not on filedocumented in this encounter Care Teams Sports Leadership Instructor Relationship Specialty Start Date End Date Cintia Cobb MD PCP - General Family Practice 09/30/21 documented as of this encounter
--- OUTSIDE RECORDS SUMMARY | 2022-08-05 10:30 | XMS_ITS | Encounter Summary ---
:1960 Author Organization [facility] Address [address], [place] [address] Care Team Providers Name Role Phone Cintia Cobb MD Primary Care Provider [phone] Reason for Visit Reason Comments Medication Questions Reclast Encounter Details Date Type Department Care Team Description 03/26/2022 Telephone [facility] Delmer Valladares, Medica tion Questions CENTER [facility] (Reclast) [address] [place] [address] [place] [address] [place], [place] [phone] (Wo rk) Social History Tobacco Use Types [...] with Jelena, she is rerouting referral to [facility] Petra Cervantes - 03/26/2022 3:54 PM CDT [...] message with his . Please use - [phone] as the best number to reach the patient. Let me know if I need to send this somewhere else. Thanks! documented in this encounter Plan of Treatment Upcoming Encounters Date Type Specialty Care Team Description 09/15/2022 Appointment Orthopedics Delgado Gottlieb MD [address] [place], [place] [phone] (Wo rk) 10/08/2022 Appointment Orthopedics Delgado Gottlieb MD [address] [place] [phone] (Wo rk) 05/27/2023 Appointment Chemo Therapy/Infusion Services documented as of this encounter Visit Diagnoses Not on filedocumented in this encounter Care Teams Mirror Finishing Machine Operator Relationship Specialty Start Date End Date Cintia Cobb MD PCP - General Family Practice 09/30/21 documented as of this encounter
--- OUTSIDE RECORDS SUMMARY | 2022-08-05 10:30 | XMS_ITS | Encounter Summary ---
:[address] [facility] Address [address] [address] Care Team Providers Name Role Phone Cintia Cobb MD Primary Care Provider [phone] Reason for Referral Procedure/Equipment (Routine) - Incomplete Specialty Diagnoses / Procedures Referred By Contact Refer red To Contact Diagnoses Diagnosis unknown Cesar Scherer MD Procedures FL C Arm [address] [facility] [address], [place] [phone] Referral ID Status Reason Start Date Expiration Date Visits V isits Requested Authorized [id number] Incomplete 01/27/2022 04/28/2023 1 1 Reason for Visit Auth/Cert Specialty Diagnoses / Procedures Referred By Contact Refer red To Contact Diagnoses Lumbar stenosis with neurogenic claudication Procedures Bilateral Lumbar 2-Lumbar 4 Decompression Foraminotomy Referral ID Status Reason Start Date Expiration Date Visits Requ ested Visits Authorized [id number] 1 1 Encounter Details Date Type Department Care Team Description 01/27/2022 Hospital Encounter [facility] Cesar Scherer Diagnosis unknown [address] Murray MD [place], [place] [address] [address] [place] [address] [place] [address] Social History Tobacco Use Types [...] for Pain. documented as of this encounter Plan of Treatment Upcoming Encounters Date Type Specialty Care Team Description 09/15/2022 Appointment Orthopedics Delgado Gottlieb MD [address] [place] [phone] (Gavi rk) 10/08/2022 Appointment Orthopedics Delgado Gottlieb MD [address] [place] [phone] (Wo rk) 05/27/2023 Appointment Chemo Therapy/Infusion [...] surg ical procedure. Cesar Scherer MD RAD [place] documented in this encounter Visit Diagnoses Diagnosis Diagnosis unknown Other unknown and unspecified cause of m orbidity or mortality documented in this encounter Care Teams Adult Care Provider Relationship Specialty Start Date End Date Cintia Cobb MD PCP - General Family Practice 09/30/21 documented as of this encounter
--- OUTSIDE RECORDS SUMMARY | 2022-08-05 10:30 | XMS_ITS | Encounter Summary ---
:1960 [facility] Address [address] [address] Care Team Providers Name Role Phone Cintia Cobb MD Primary Care Provider [phone] Reason for Visit Reason Comments QUESTIONS, GENERAL Infusion Appointment Encounter Details Date Type Department Care Team Description 04/30/2022 Telephone [facility] Delmer Valladares, [facility] PAJenifer (Infusion Appointment) [address] [place] [address] [place] [address] [place], [place] [phone] (Wo rk) Social History Tobacco Use Types [...] - 05/01/2022 1:09 PM CDT [facility] for Reclast infusion in chart. Left message for patient via that he can call [facility] clinic to get scheduled. [phone]. Amanda Damon - 04/30/2022 3:51 PM CDT Has the patient recently had surgery or an injury? No Patient is calling back regarding his referral to the infusion center. He has never been contacted to schedule the appointment and would like to make sure the referral went through. He would prefer to be seen in the [facility] but [facility]. Patient [...] Description 09/15/2022 Appointment Orthopedics Delgado Gottlieb MD [address] [place] [phone] (Gavi presley) 10/08/2022 Appointment Orthopedics Delgado Gottlieb MD [address] [place] [phone] (Gavi presley) 05/27/2023 Appointment Chemo Therapy/Infusion Services documented as of this encounter Visit Diagnoses Not on filedocumented in this encounter Care Teams German Teacher Relationship Specialty Start Date End Date Cintia Cobb MD PCP - General Family Practice 09/30/21 documented as of this encounter
--- OUTSIDE RECORDS SUMMARY | 2022-08-05 10:30 | XMS_ITS | Encounter Summary ---
:1960 Author Organization [facility] Address [address] [place] [address] Care Team Providers Name Role Phone Cintia Cobb MD Primary Care Provider [phone] Reason for Visit Reason Comments QUESTIONS, GENERAL Encounter Details Date Type Department Care Team Description 01/28/2022 Telephone [facility] Cesar Champagne, QUESTIONS, GENERAL [address] [place], [place] [address] [address] [phone] [place] [address] (Wo rk) Social History Tobacco Use [...] status and will work with Jackie at [facility] to assist in getting him his off [...] PM CDT ED had surgery yesterday at [facility]. He states he did not receive any information regarding his surgery, no paperwork, questions were not answered by staff. He is not happy and asked to speak to Lesli. documented in this encounter Plan of Treatment Upcoming Encounters Date Type Specialty Care Team Description 09/15/2022 Appointment Orthopedics Delgado Gottlieb MD [address] [place] [phone] (Gavi presley) 10/08/2022 Appointment Orthopedics Delgado Gottlieb MD [address] [place], [place] [address] (Gavi presley) 05/27/2023 Appointment Chemo Therapy/Infusion Services documented as of this encounter Visit Diagnoses Not on filedocumented in this encounter Care Teams Binding Nicker Relationship Specialty Start Date End Date Cintia Cobb MD PCP - General Family Practice 09/30/21 documented as of this encounter
--- OUTSIDE RECORDS SUMMARY | 2022-08-05 10:30 | XMS_ITS | Encounter Summary ---
:1960 Author Organization [facility] Address [address] [place] [address] Care Team Providers Name Role Phone Cintia Cobb MD Primary Care Provider [phone] Encounter Details Date Type Department Care Team Description 01/27/2022 Orders Only HIM DEPARTMENT Provider, Aguilar hernandez [place] [address] Social History Tobacco Use Types Packs/Day Years [...] 09/15/2022 Appointment Orthopedics Delgado Gottlieb MD [address] [place], [place] [phone] (Gavi presley) 10/08/2022 Appointment Orthopedics Delgado Gottlieb MD [address] [facility] [place] [place] [address] (Gavi presley) 05/27/2023 Appointment Chemo Therapy/Infusion Services documented as of this encounter Procedures Procedure Name Priority Date/Time Associated Diagnosis Comme nts LABORATORY REPORT 01/27/2022 Results fo r this procedure are in the resu lts section. documented in this encounter Results LABORATORY REPORT (01/27/2022) Narrative This result has an attachment that is no t available. Interface Provider DUMMY/OTHER/AR documented in this encounter Visit Diagnoses Not on filedocumented in this encounter Care Teams Java Consultant Relationship Specialty Start Date End Date Cintia Cobb MD PCP - General Family Practice 09/30/21 documented as of this encounter
--- OUTSIDE RECORDS SUMMARY | 2022-08-05 10:30 | XMS_ITS | Encounter Summary ---
:1960 Author Organization [facility] Address [address] [place] [address] Care Team Providers Name Role Phone Cintia Cobb MD Primary Care Provider [phone] Encounter Details Date Type Department Care Team Description 01/27/2022 Orders Only HIM DEPARTMENT Provider, Aguilar hernandez [place] [address] Social History Tobacco Use Types Packs/Day Years [...] 09/15/2022 Appointment Orthopedics Delgado Gottlieb MD [address] [place], [place] [address] (Gavi presley) 10/08/2022 Appointment Orthopedics Delgado Gottlieb MD [address] [facility] [place] [address] (Gavi presley) 05/27/2023 Appointment [...] on filedocumented in this encounter Care Teams Binder And Box Builder Relationship Specialty Start Date End Date Cintia Cobb MD PCP - General Family Practice 09/30/21 documented as of this encounter
--- OUTSIDE RECORDS SUMMARY | 2022-08-05 10:30 | XMS_ITS | Encounter Summary ---
:1960 Author Organization [facility] Address [address] [place] [address] Care Team Providers Name Role Phone Cintia Cobb MD Primary Care Provider [phone] Encounter Details Date Type Department Care Team Description 02/16/2022 Notes/Orders [facility] Cesar Champagne, [address] [place], [place] [address] [address] [address] [place] [address] (Gavi rk) Social History Tobacco [...] Description 09/15/2022 Appointment Orthopedics Delgado Gottlieb MD [address] [place] [phone] (Gavi rk) 10/08/2022 Appointment Orthopedics Delgado Gottlieb MD [address] [place] [phone] (Wo rk) 05/27/2023 Appointment Chemo Therapy/Infusion Services documented as of this encounter Visit Diagnoses Not on filedocumented in this encounter Care Teams Skiver Heel Tap Relationship Specialty Start Date End Date Cintia Cobb MD PCP - General Family Practice 09/30/21 documented as of this encounter
--- OUTSIDE RECORDS SUMMARY | 2022-08-05 10:30 | XMS_ITS | Encounter Summary ---
:1960 Author Organization [facility] Address [address], [place] [address] Care Team Providers Name Role Phone Cintia Cobb MD Primary Care Provider [phone] Reason for Visit Reason Comments Refill Encounter Details Date Type Department Care Team Description 03/01/2022 Refill [facility] Ita Alvarez PA-C Refill [address] [facility] [address] [facility] [place], [place] [address] [place] [address] [phone] (Wo rk) Social History Tobacco Use Types [...] Description 09/15/2022 Appointment Orthopedics Delgado Gottlieb MD [address] [place] [phone] (Wo rk) 10/08/2022 Appointment Orthopedics Delgado Gottlieb MD [address] [place] [phone] (Gavi presley) 05/27/2023 Appointment Chemo Therapy/Infusion Services documented as of this encounter Visit Diagnoses Not on filedocumented in this encounter Care Teams Net Making Supervisor Relationship Specialty Start Date End Date Cintia Cobb MD PCP - General Family Practice 09/30/21 documented as of this encounter
--- OUTSIDE RECORDS SUMMARY | 2022-08-05 10:30 | XMS_ITS | Encounter Summary ---
:1960 Author Organization [facility] Address [address], [place] [address] Care Team Providers Name Role Phone Cintia Cobb MD Primary Care Provider Reason for Visit Auth/Cert Specialty Diagnoses / Procedures Referred By Contact Refer red To Contact Diagnoses Lumbar stenosis with neurogenic claudication Procedures Bilateral Lumbar 2-Lumbar 4 Decompression Foraminotomy Referral ID Status Reason Start Date Expiration Date Visits Requ ested Visits Authorized [id number] 1 1 Encounter Details Date Type Department Care Team Description 01/27/2022 Anesthesia Event Yarsanism Operating Katya Javier MD Room [address] [place] [address] [phone] Anesthesia Record Procedure Summary Procedure Name Responsible [...] Electr onically signed by Abhay Salas APRN, BIOMEDICAL EQUIPMENT SPECIALIST 1404 An Stop Care transferred . Name [...] Salas, Abhay Salas, HAKEEM, Time: 1217; Placed LUZMA PALACIO BIOMEDICAL EQUIPMENT SPECIALIST By: BIOMEDICAL EQUIPMENT SPECIALIST; Induction Type: Pre-O2, IV; Masking: Easy; ETT [...] after intubation); Removal Date: 01/27/22; Removal Time: 135 documented in this encounter Social History Tobacco [...] Javier MD - 01/27/2022 2:47 PM CDT [facility] Anesthesia Post-op Note Patient: Ed J Luna [...] Javier MD - 01/27/2022 11:07 AM CDT [facility] Anesthesia Pre-op Evaluation Procedure: Bilateral Lumbar 2-Lumbar [...] QT 466 ms QTc 480 ms R [place] -89 degrees T [place] 68 degrees Physical Exam: BP (!) 145/76 [...] benefits and alternatives discussed with: Patient or Sign Installer agree tothe anesthesia treatment plan. ANESTHESIA PREOP EVALUATION Ed Jim Luna is a 61 y.o. male who presents for Procedure(s): Bilateral Lumbar 2-Lumbar 4 Decompression Foraminotomy Plan is General with an endotracheal tube Pertinent risks, benefits, available alternatives, and the anesthetic plan were discussed with patient, family, and/or patient's arborist representative. All questions were answered and an understanding of our conversation was expressed. There was an agreement to proceed. The patient and/or their arborist representative were notified about the potential risks of damage to the lips, teeth, dental devices, mouth and airway. H&P Reviewed and Patient examined, no change observed IV access Antibiotics per surgery Electronically signed by: Efra Javier MD 01/27/2022 11:07 AM documented in this encounter Plan of Treatment Upcoming Encounters Date Type Specialty Care Team Description 09/15/2022 Appointment Orthopedics Delgado Gottlieb MD [address] [place] [phone] (Wo rk) 10/08/2022 Appointment Orthopedics Delgado Gottlieb MD [address] [place] [phone] (Wo rk) 05/27/2023 Appointment Chemo [...] 1404 documented in this encounter Care Teams Roading Engineer Relationship Specialty Start Date End Date Cintia Cobb MD PCP - General Family Practice 09/30/21 documented as of this encounter
--- OUTSIDE RECORDS SUMMARY | 2022-08-05 10:30 | XMS_ITS | Encounter Summary ---
:[address] [facility] Address [address], [place] [address] Care Team Providers Name Role Phone Cintia Cobb MD Primary Care Provider [phone] Reason for Visit Reason Comments QUESTIONS, GENERAL Encounter Details Date Type Department Care Team Description 01/29/2022 Telephone [facility] Cesar Champagne QUESTIONS, GENERAL (/) [address] [facility] MD [place], [place] [address] [address] [place] [address] [place] [address] Social History Tobacco Use Types Packs/Day [...] Pt is post Decomp-Foraminotomy L2-4 Bilat/DOS 01/27/22 [facility] Pt was called and he states he [...] you been seen for this recently?: na [Perinatal Educator/Appt Center: If yes, please include date and provider.] Is it okay to leave detailed message on your voicemail? YES [Perinatal Educator/Appt Center: If this call is after 3 p.m., communicate to patient: If we are not able to get back to you by the end of the day and your symptoms worsen please contact the Careline] documented in this encounter Plan of Treatment Upcoming Encounters Date Type Specialty Care Team Description 09/15/2022 Appointment Orthopedics Delgado Gottlieb MD [address] [place] [phone] (Gavi presley) 10/08/2022 Appointment Orthopedics Delgado Gottlieb MD [address] [place] [phone] (Gavi rk) 05/27/2023 Appointment Chemo Therapy/Infusion Services documented as of this encounter Visit Diagnoses Not on filedocumented in this encounter Care Teams Trauma Program Manager Relationship Specialty Start Date End Date Cintia Cobb MD PCP - General Family Practice 09/30/21 documented as of this encounter
--- OUTSIDE RECORDS SUMMARY | 2022-08-05 10:30 | XMS_ITS | Encounter Summary ---
:1960 Author Organization [employer] Address [address] [place] [address] Care Team Providers Name Role Phone Cintia Cobb MD Primary Care Provider [phone] Encounter Details Date Type Department Care Team Description 01/27/2022 Notes/Orders [facility] Cesar Champagne, [address] [place], [place] [address] [address] [address] [place] [address] (Gavi rk) Social History Tobacco [...] 09/15/2022 Appointment Orthopedics Delgado Gottlieb MD [address] [place] [phone] (Gavi rk) 10/08/2022 Appointment Orthopedics Delgado Gottlieb MD [address] [place] [phone] (Wo rk) 05/27/2023 Appointment Chemo Therapy/Infusion Services documented as of this encounter Visit Diagnoses Not on filedocumented in this encounter Care Teams Talkback Host Relationship Specialty Start Date End Date Cintia Cobb MD PCP - General Family Practice 09/30/21 documented as of this encounter
--- OUTSIDE RECORDS SUMMARY | 2022-08-05 10:31 | XMS_ITS | Encounter Summary ---
:1960 Author Organization [facility] Address [address] [place] [address] Care Team Providers Name Role Phone Cintia Cobb MD Primary Care Provider [phone] Reason for Visit Reason Comments QUESTIONS, GENERAL Encounter Details Date Type Department Care Team Description 10/07/2021 Telephone Specialty Center [address] Delgado Gottlieb MD QUESTIONS, GENERAL Orthopedics Clinic [address] [place] [address] [place] [address] [phone] Social History Tobacco Use Types Packs/Day Years [...] as scheduled. He states he lives in [place] and was just trying to see if [...] he would like the order fax[facility] to [facility] [facility] at [phone] ATTN: Lesli. Order faxed as requested. Rosetta Ye RN 10/07/2021, 12:49 PM Delgado Loyola MD - 10/07/2021 11:43 AM CST Given the complexity of this patient's injury my preference would be that he continue to see me for now. However, if he is still resistant to that then one option would be to arrange followup with Drs. Edge or Marcello at [facility]. There are no ortho trauma surgeons at [facility] so that would not be an option for followup of this injury. Thanks. Freddy Lua - 10/07/2021 10:04 AM CST Has the patient recently had surgery or an injury? Yes. Date of Surgery: September 30, 2021 Type of Surgery: Left ORIF distal femur How may we help you today? Patient called, wanting to transfer care to [facility] due to convenience, please call to advise Describe your symptoms/concerns: Left femur S/P ORIF When did the issue start: 09/30/21 Have you been seen for this recently?: Yes Dr. Gottlieb [Supervisor Modern Languages/Appt Center: If yes, please include date and provider.] Is it okay to leave detailed message on your voicemail? Yes [Supervisor Modern Languages/Appt Center: If this call is after 3 p.m., communicate to patient: If we are not able to get back to you by the end of the day and your symptoms worsen please contact the Careline] OM BOW MAKER documented in this encounter Plan of Treatment Upcoming Encounters Date Type Specialty Care Team Description 09/15/2022 Appointment Orthopedics Delgado Gottlieb MD [address] [place], [place] [address] (Wo rk) 10/08/2022 Appointment Orthopedics Delgado Gottlieb MD [address] [place], [place] [address] (Wo rk) 05/27/2023 Appointment Chemo Therapy/Infusion Services documented as of this encounter Visit Diagnoses Not on filedocumented in this encounter Care Teams Sdc Teacher Relationship Specialty Start Date End Date Cintia Cobb MD PCP - General Family Practice 09/30/21 documented as of this encounter
--- OUTSIDE RECORDS SUMMARY | 2022-08-05 10:31 | XMS_ITS | Encounter Summary ---
:1960 Author Organization [facility] Address [address], [place] [address] Care Team Providers Name Role Phone Cintia Cobb MD Primary Care Provider [phone] Reason for Visit Procedure/Equipment (Routine) - Incomplete Specialty Diagnoses / Procedures Referred By Contact Refer red To Contact Diagnoses Closed fracture of distal end of left femur with routine healing, unspecified fracture morphology, subsequent encounter Delgado Gottlieb MD Procedures XR Femur Lt 2 Views [address] [place] [address] Referral ID Status Reason Start Date Expiration Date Visits V isits Requested Authorized [id number] Incomplete 10/16/2021 01/15/2023 1 1 Encounter Details Date Type Department Care Team Description 10/16/2021 [facility]illary [facility] Procedure Specialty Center Angélica Tadeo surgery of the Radiology [address] musculoskeletal system [address] [facility] [place] [address] [facility] [phone] [place] [address] Social History Tobacco Use Types Packs/Day Years [...] 09/15/2022 Appointment Orthopedics Delgado Gottlieb MD [address] [place], [place] [address] (Wo rk) 10/08/2022 Appointment Orthopedics Delgado Gottlieb MD [address] [place], [place] [address] (Wo rk) 05/27/2023 Appointment Chemo Therapy/Infusion Services documented as of this encounter Procedures Procedure Name Priority Date/Time Associated Diagnosis Comme nts XR FEMUR LT 2 Routine 10/16/2021 10:01 Aftercare following Res ults for this VIEWS AM TOUCH UP PAINTER HAND surgery of the procedure are in musculoskeletal system the r esults section. documented in this encounter Results XR Femur Lt 2 Views (10/16/2021 10:01 AM TOUCH UP PAINTER HAND) Anatomical Region Laterality Modality Lower Extremity, Leg, Thigh Computed Rad iography Specimen (Source) Anatomical Collection Method Collection Time Re ceived Time Location / / Volume Laterality 10/16/2021 10:01 AM TOUCH UP PAINTER HAND Narrative 10/16/2021 2:21 PM TOUCH UP PAINTER HAND EXAM: XR FEMUR LT 2 VIEWS LOCATION: [place] [address] DATE/TIME: 10/16/2021 10:01 AM INDICATION: Open reduction [...] EXAM: XR FEMUR LT 2 VIEWS LOCATION: [place] [address] DATE/TIME: 10/16/2021 10:01 AM INDICATION: Open reduction [...] Diagnoses Diagnosis Aftercare [facility] documented in this encounter Care Teams Emergency Doctor Relationship Specialty Start Date End Date Cintia Cobb MD PCP - General Family Practice 09/30/21 documented as of this encounter
--- OUTSIDE RECORDS SUMMARY | 2022-08-05 10:31 | XMS_ITS | Encounter Summary ---
:1960 Author Organization [facility] Address [address] [place] [address] Care Team Providers Name Role Phone Cintia Cobb MD Primary Care Provider [phone] Reason for Visit Reason Comments QUESTIONS, GENERAL Encounter Details Date Type Department Care Team Description 11/06/2021 Telephone Specialty Center [address] Delgado Gottlieb MD QUESTIONS, GENERAL Orthopedics Clinic [address] [place] [address] [place] [address] [phone] Social History Tobacco Use Types Packs/Day Years [...] given. Rosetta Ye RN 11/07/2021, 2:26 PM Rosetta Parker RN - 11/07/2021 10:04 AM CST [facility] at [phone] and follow the prompt for [facility] and [...] you. Rosetta Ye RN 11/06/2021, 4:[address] SQL DEVELOPER Davin Diggs - 11/06/2021 3:32 PM CST Pt would like a call back from the care team. He wouldn't give any information on this and states that he will be by his phone for the next 5 minutes. Please call to advise. PL SQL DEVELOPER Mary Acosta - 11/06/2021 3:30 PM CST Patient said he wants Rosetta to call him back today. He said not tomorrow, not next month, but today. When asked the reason for his call he stated it is personal. He insisted to be put thru to Rosetta and automatic typewriter inspector indicated she is not available and would call him back. He said he would hold and automatic typewriter inspector said he would get a call back. Grinder Lap repeated this three times. Mary Acosta 11/06/2021, 3:[address] SQL DEVELOPER documented in this encounter Plan of Treatment Upcoming Encounters Date Type Specialty Care Team Description 09/15/2022 Appointment Orthopedics Delgado Gottlieb MD [address] [place] [phone] (Gavi presley) 10/08/2022 Appointment Orthopedics Delgado Gottlieb MD [address] [place] [phone] (Gavi presley) 05/27/2023 Appointment Chemo Therapy/Infusion Services documented as of this encounter Visit Diagnoses Not on filedocumented in this encounter Care Teams Automobile Radiator Mechanic Relationship Specialty Start Date End Date Cintia Cobb MD PCP - General Family Practice 09/30/21 documented as of this encounter
--- OUTSIDE RECORDS SUMMARY | 2022-08-05 10:31 | XMS_ITS | Encounter Summary ---
:1960 Author Organization [facility] Address [address] [place] [address] Care Team Providers Name Role Phone Cintia oCbb MD Primary Care Provider [phone] Reason for Visit Reason Comments COVID Screening Pre op screening Encounter Details Date Type Department Care Team Description 01/17/2022 Telephone [facility] Cesar Champagne COVID Screening (Pre op [address] [facility] MD Terri screening) [place], [place] [address] [address] [facility] [phone] [place] [address] Social History Tobacco Use Types Packs/Day [...] Lesli Motley - 01/20/2022 9:29 AM CDT [facility] never reached back with a fax and [...] covid test order to be send to [facility] so he can get his [...] allow his covid test to happen. Called [facility] and spoke with the wound clinic where he wasjust seen and she directed me to the lab harvest supervisor at [phone] to see if they want the order directly. I left the lab harvest supervisor a detailed message regarding the situation and needing a correct fax #. Spine nurse, can you please sign the pended covid test orders. When I get a call back from [facility] I can fax it. documented in this encounter Plan of Treatment Upcoming Encounters Date Type Specialty Care Team Description 09/15/2022 Appointment Orthopedics Delgado Gottlieb MD [address] [place], [place] [address] (Gavi presley) 10/08/2022 Appointment Orthopedics Delgado Gottlieb MD [address] [place], [place] [address] (Gavi presley) 05/27/2023 Appointment Chemo Therapy/Infusion Services documented as of this encounter Visit Diagnoses Diagnosis Screening examination for infectious dis ease - Primary Screening examination for unspecified in fectious disease documented in this encounter Care Teams Health Concierge Relationship Specialty Start Date End Date Cintia Cobb MD PCP - General Family Practice 09/30/21 documented as of this encounter
--- OUTSIDE RECORDS SUMMARY | 2022-08-05 10:31 | XMS_ITS | Encounter Summary ---
:1960 Author Organization [facility] Address [address] [place] [address] Care Team Providers Name Role Phone Cintia Cobb MD Primary Care Provider [phone] Reason for Visit Reason Comments QUESTIONS, GENERAL Encounter Details Date Type Department Care Team Description 10/23/2021 Telephone Specialty Center [address] Delgado Gottlieb MD QUESTIONS, GENERAL Orthopedics Clinic [address] [place] [address] [place] [address] [phone] Social History Tobacco Use Types Packs/Day Years [...] information. Jenniffer Carpenter RN 10/23/2021, 12:31 PM NE ENGINEER Delgado Gottlieb MD - 10/23/2021 12:03 PM CST Methocarbamol refill approved. Thanks. NE ENGINEER Rosetta Ye RN - 10/23/2021 11:33 AM CST I spoke with Dr Gottlieb regarding patients request. He is approving to be off work through 12/29/2021.Letter has been written and patient notified. Letter placed at front desk supervisor of third floor check in, per patient request. Date of Surgery: 10/01/2021 ORIF of left supracondylar distal femur fracture, utilizing both plate and nail fixation Patient is also requesting a refill of the robaxin. Last refill on 10/02/2021 for 30 tabs. Please advise. Thank you. Rosetta Ye RN 10/23/2021, 11:45 AM NE ENGINEER Rosetta Ye RN - 10/23/2021 11:20 AM CST I spoke with Ed who states that he needs a letter for his insurance stating his injury and about howlong he would be off work. He would like to be able to pick this up today since we are not able to do email. Rosetta Ye RN 10/23/2021, 11:21 AM NE ENGINEER Nory Krishna - 10/23/2021 11:04 AM CST Has the patient recently had surgery or an injury? No How may we help you today? Patient decline to disclose any information. Nory Padilla Mai 10/23/2021, 11:06 AM NE ENGINEER documented in this encounter Plan of Treatment Upcoming Encounters Date Type Specialty Care Team Description 09/15/2022 Appointment Orthopedics Delgado Gottlieb MD [address] [place], [place] [phone] (Wo rk) 10/08/2022 Appointment Orthopedics Delgado Gottlieb MD [address] [place], [place] [phone] (Gavi rk) 05/27/2023 Appointment Chemo Therapy/Infusion Services documented as of this encounter Visit Diagnoses Not on filedocumented in this encounter Care Teams Cable Swager Relationship Specialty Start Date End Date Cintia Cobb MD PCP - General Family Practice 09/30/21 documented as of this encounter
--- OUTSIDE RECORDS SUMMARY | 2022-08-05 10:31 | XMS_ITS | Encounter Summary ---
:1960 Author Organization [employer] Address [address] [place] [address] Care Team Providers Name Role Phone Cintia Cobb MD Primary Care Provider [phone] Reason for Visit Reason Comments QUESTIONS, GENERAL Encounter Details Date Type Department Care Team Description 01/15/2022 Telephone Specialty Center 435 Delgado Gottlieb MD QUESTIONS, GENERAL Orthopedics Clinic [address] [place] [address] [place] [address] [phone] Social History Tobacco Use Types Packs/Day Years [...] - 01/23/2022 8:53 AM CDT [facility] at [phone] and follow the prompt for [facility] and ask to speak with one of the nurses. Rosetta Ye RN 01/23/2022, 8:53 AM Rosetta Ye RN - 01/21/2022 10:06 AM CDT [facility] at [phone] and follow the prompt for [facility] and [...] Attempted to reach on home phone - [facility] at [phone] and follow the prompt for [facility] and [...] Description 09/15/2022 Appointment Orthopedics Delgado Gottlieb MD [address] [place] [phone] (Wo rk) 10/08/2022 Appointment Orthopedics Delgado Gottlieb MD [address] [place] [phone] (Wo rk) 05/27/2023 Appointment Chemo Therapy/Infusion Services documented as of this encounter Visit Diagnoses Not on filedocumented in this encounter Care Teams Pediatric Speech Language Pathologist Relationship Specialty Start Date End Date Cintia Cobb MD PCP - General Family Practice 09/30/21 documented as of this encounter
--- OUTSIDE RECORDS SUMMARY | 2022-08-05 10:31 | XMS_ITS | Encounter Summary ---
:1960 Author Organization [facility] Address [address] [place] [address] Care Team Providers Name Role Phone Cintia Cobb MD Primary Care Provider [phone] Encounter Details Date Type Department Care Team Description 01/01/2022 Notes/Orders [facility] Cesar Champagne, Acute pain [address] [place], [place] [address] [address] [place] [address] [place] [address] (Gavi presley) Social History Tobacco [...] Description 09/15/2022 Appointment Orthopedics Delgado Gottlieb MD [address] [place] [phone] (Gavi rk) 10/08/2022 Appointment Orthopedics Delgado Gottlieb MD [address] [place] [phone] (Wo rk) 05/27/2023 Appointment Chemo Therapy/Infusion Services documented as of this encounter Visit Diagnoses Diagnosis Acute pain documented in this encounter Care Teams Pool Hand Relationship Specialty Start Date End Date Cintia Cobb MD PCP - General Family Practice 09/30/21 documented as of this encounter
--- OUTSIDE RECORDS SUMMARY | 2022-08-05 10:31 | XMS_ITS | Encounter Summary ---
:1960 Author Organization [employer] [facility] Address [address] [place] [address] Care Team Providers Name Role Phone Cintia Cobb MD Primary Care Provider Reason for Visit Auth/Cert Specialty Diagnoses / Procedures Referred By Contact Refer red To Contact Diagnoses Lumbar stenosis with neurogenic claudication Procedures Bilateral Lumbar 2-Lumbar 4 Decompression Foraminotomy Referral ID Status Reason Start Date Expiration Date Visits Requ ested Visits Authorized [id number] 1 1 Encounter Details Date Type Department Care Team Description 01/27/2022 Hospital Encounter [facility] Louis Scherer inal stenosis of Room Everardo Murray MD lumbar region with [address] neurogenic [place], [place] [address] claudication (Primary [address] [place], [place]) [phone] [place] [phone] Social History Tobacco Use Types Packs/Day Years [...] told patient that she would page the lease administration analyst MD. Patient refused because he wanted [...] Delgado PA-C - 01/27/2022 2:[address] [facility] Brief Operative Progress Note Surgery Date: [...] planned. See operative note. Didier Delgado PA-C [phone] Everardo Scherer MD - 01/27/2022 12:00 AM CDT NAME: NOEMÍ LUNA [facility]: [id number] OPERATIVE REPORT DATE OF SURGERY: 01/27/2022 : 1960 SURGEON: EVERARDO SCHERER MD RUBBISH COLLECTOR: Freddy Delgado PA-C. PREOPERATIVE DIAGNOSIS: Bilateral spinal [...] 2 and 3 mm Kerrisons. My assistant director of plant operations protected the neural elements through the decompression. Subarticular decompression was obtained with decompression ofthe transversing lumbar 3 and 4 nerve roots. Finally formal foraminal decompression was carried out with my assistant director of plant operations protecting the exiting L2 and 3 nerve [...] this surgical procedure. EVERARDO SCHERER MD JNIKHIL/AQS /[id number] documented in this encounter Miscellaneous Notes OR Nursing - Lesli Ng RN - 01/24/2022 3:42 PM CDT Pre-Procedure Assessment, PPA. Patient reports pre-procedure Covid-19 test done in [place] at [facility] on Thursday, January 24. Results will be available in Care Everywhere. Last HGB 7.6 on 12/31/21; Paged to notify HGB result, dx chronic anemia. Anesthesiologist notified of upcoming procedure and HGB 7.6 with recent hx requiring blood transfusion after emergency surgery [facility] No orders received. History and Physical also noted an open wound to right lower extremity being treated at a wound clinic in [place]; page to Dr. Scherer included FYI regarding wound. When patient received NPO instructions, he stated, Well I've had other surgeries when I have eaten breakfast and didn't have any problems. Office Services Clerk attempted to explain [facility] NPO policy is in place for his health and safety; Dr. Scherer's office notified. documented in this encounter Plan of Treatment Upcoming Encounters Date Type Specialty Care Team Description 09/15/2022 Appointment Orthopedics Delgaod Gottlieb MD [address] [place], [place] [address] (Gavi presley) 10/08/2022 Appointment Orthopedics Delgado Gottlieb MD [address] [place] [phone] (Gavi presley) 05/27/2023 Appointment Chemo [...] (01/27/2022 2:25 PM CDT) Analysis Performed At [facility] Time Signature Glucose, Whole 110 70 - 180 01/27/2022 [facility] Blood mg/dL 2:26 PM CDT LABORATORY Performing MT PACU 01/27/2022 [facility] Location 2:26 PM CDT LABORATORY Specimen Anatomical Collection Method Collection Time Receive d Time (Source) Location / / Volume Laterality Blood 01/27/2022 2:25 PM 2 2:26 CDT PM CDT Everardo Scherer MD LAB_1 Performing Organization Address [facility] Code Phon e Number [facility] [address] [place] [address] Antibody Screen (01/27/2022 11:46 AM CDT) Patholo gist Method Time Signature Antibody Screen Negative 01/27/2022 [facility] Interpretation 12:50 PM CDT BLOOD BANK Specimen Anatomical Collection Method / Collection Time Recei shahid Time (Source) Location / Volume Laterality Blood Venipuncture / 01/27/2022 11:46 2 Unknown AM CDT 11:51 AM CDT Efra Javier MD LAB_1 Performing Organization Address [facility] Phon e Number [facility] [address] [place] [address] Blood Type (01/27/2022 11:46 AM CDT) P athologist Signature ABO A 01/27/2022 [facility] 12:35 PM CDT BLOOD BANK RH Positive 01/27/2022 [facility] 12:35 PM CDT BLOOD BANK Specimen Anatomical Collection Method / Collection Time Recei shahid Time (Source) Location / Volume Laterality Blood Venipuncture / 01/27/2022 11:46 2 Unknown AM CDT 11:51 AM CDT Efra Javier MD LAB_1 Performing Organization Address [facility] Phon e Number [facility] [address] [place] [address] Glucose, Whole Blood POCT (01/27/2022 10:53 AM CDT) Analysis Performed At Patho logist Time Signature Glucose, Whole 105 70 - 180 01/27/2022 [facility] Blood mg/dL 10:54 AM CDT LABORATORY Performing MT SURG 01/27/2022 [facility] Location 10:54 AM CDT LABORATORY Specimen Anatomical Collection Method Collection Time Receive d Time (Source) Location / / Volume Laterality Blood 01/27/2022 10:53 01/27/2022 AM CDT 10:54 AM CDT Everardo Scherer MD LAB_1 Performing Organization Address City/State/ZIP Code Phon e Number [facility] [address] [place] [address] documented in this encounter Visit Diagnoses Diagnosis Spinal stenosis of lumbar region with ne urogenic claudication - Primary Spinal stenosis, lumbar region, with kaci rogenic claudication documented in this encounter Administered Medications Inactive Administered Medications - up to 3 most recent administrations Medication Order MAR Action Action Date Dose Rate Site bupivacaine-epinephrine Given 01/27/2022 1:39 PM CDT 8 mL (SENSORCAINE) 0.25% -1:152062 injection ONCE PRN, Starting on Thu01/27/22 at 1339, Until Thu01/27/22 at 2056, Intra-op dextrose 5 % infusion at 250 mL/hr, ONCE PRN, Other, for nausea if all other options have failed and patient is not diabetic., Starting on Thu01/27/22 at 0 823, For 1 dose, PACU/Recovery fentaNYL (SUBLIMAZE) injection 25-50 mcg 25-50 mcg, Intravenous, [id number], Other, Moderate to Severe Pain (pain score [...] (DEMEROL) injection 12.5 mg 12.5 mg, Intravenous, [id number], Shiverin g, Starting on Thu01/27/22 at 0823, [...] pain scores)., Po st-op bupivacaine-epinephrine (SENSORCAINE) 0.25% -1:459640 injection 1339 (Given - Provider: Everardo Scherer MD) ONCE PRN, Starting on Thu01/27/22 at 1339, Until Thu01/27/22 at 2056, Intra-op dextrose 5 % infusion at 250 mL/hr, ONCE PRN, Other, for nause a if all other options have failed and patient is not diabetic., Starting on Thu01/27/22 at 0823, For 1 dose, PACU/Recovery fentaNYL (SUBLIMAZE) injection 25-50 mcg 25-50 mcg, Intravenous, [id number], Other, Moderate to Severe Pain (pain score [...] (DEMEROL) injection 12.5 mg 12.5 mg, Intravenous, [id number], Shiverin g, Starting on Thu01/27/22 at 0823, [...] PACU/Recovery documented in this encounter Care Teams Editor House Organ Relationship Specialty Start Date End Date Cintia Cobb MD PCP - General Family Practice 09/30/21 documented as of this encounter
--- OUTSIDE RECORDS SUMMARY | 2022-08-05 10:31 | XMS_ITS | Encounter Summary ---
:1960 Author Organization [employer] Address [address] [place] [address] Care Team Providers Name Role Phone Cintia Cobb MD Primary Care Provider [phone] Reason for Visit Reason Comments QUESTIONS, GENERAL Encounter Details Date Type Department Care Team Description 12/12/2021 Telephone Specialty Center [address] Delgado Gottlieb MD QUESTIONS, GENERAL Orthopedics Clinic [address] [place] [address] [place] [address] [phone] Social History Tobacco Use Types Packs/Day Years [...] days. He was encouraged to contact his [facility] doctor to be seen as soon as [...] Description 09/15/2022 Appointment Orthopedics Delgado Gottlieb MD [address] [place] [phone] (Wo rk) 10/08/2022 Appointment Orthopedics Delgado Gottlieb MD [address] [place] [phone] (Wo rk) 05/27/2023 Appointment Chemo Therapy/Infusion Services documented as of this encounter Visit Diagnoses Not on filedocumented in this encounter Care Teams Auto Tester Relationship Specialty Start Date End Date Cintia Cobb MD PCP - General Family Practice 09/30/21 documented as of this encounter
--- OUTSIDE RECORDS SUMMARY | 2022-08-05 10:31 | XMS_ITS | Encounter Summary ---
:1960 Author Organization [employer] Address [address] [place] [address] Care Team Providers Name Role Phone Cintia Cobb MD Primary Care Provider [phone] Encounter Details Date Type Department Care Team Description 12/30/2021 Notes/Orders [facility] Cesar Champagne, [address] [place], [place] [address] [address] [address] [place] [address] (Gavi rk) Social History Tobacco [...] Description 09/15/2022 Appointment Orthopedics Delgado Gottlieb MD [address] [place] [phone] (Gavi rk) 10/08/2022 Appointment Orthopedics Delgado Gottlieb MD [address] [place] [phone] (Wo rk) 05/27/2023 Appointment Chemo Therapy/Infusion Services documented as of this encounter Visit Diagnoses Not on filedocumented in this encounter Care Teams Surgery Teacher Relationship Specialty Start Date End Date Cintia Cobb MD PCP - General Family Practice 09/30/21 documented as of this encounter
--- OUTSIDE RECORDS SUMMARY | 2022-08-05 10:31 | XMS_ITS | Encounter Summary ---
:1960 Author Organization [facility] Address [address] [place] [address] Care Team Providers Name Role Phone Cintia Cobb MD Primary Care Provider [phone] Reason for Visit Procedure/Equipment (Routine) - Closed Specialty Diagnoses / Procedures Referred By Contact Refer red To Contact Diagnoses Low bone density Delgado Gottlieb MD Procedures DXA Bone Density Spine/Hip Inc Vert FX Assess Dxa Bone Density Spine/Hip/Forearm [address] [place] [address] Referral ID Status Reason Start Date Expiration Date Visits Requ ested Visits Authorized [id number] Closed 10/16/2021 01/15/2023 1 1 Encounter Details Date Type Department Care Team Description 12/20/2021 Ancillary Procedure [facility] Bone Density Low bone density [address] [place], [place] [address] Social History Tobacco Use Types Packs/Day Years [...] 09/15/2022 Appointment Orthopedics Delgado Gottlieb MD [address] [place], [place] [address] (Gavi presley) 10/08/2022 Appointment Orthopedics Delgado Gottlieb MD [address] [place], [place] [address] (Gavi presley) 05/27/2023 Appointment [...] J Luna Densitometer:Hologic Discovery A (S/N [id number]) [facility] BONE 5 OSTEOPOROSIS RISK FACTORS FROM [...] bone density test (fi rst one at [facility]) VERTEBRAL FRACTURE ASSESSMENT: No vertebral fractures from [...] density documented in this encounter Care Teams Avionics Systems Engineer Relationship Specialty Start Date End Date Cintia Cobb MD PCP - General Family Practice 09/30/21 documented as of this encounter
--- OUTSIDE RECORDS SUMMARY | 2022-08-05 10:31 | XMS_ITS | Encounter Summary ---
:1960 Author Organization [facility] Address [address] [place] [address] Care Team Providers Name Role Phone Cintia Cobb MD Primary Care Provider [phone] Encounter Details Date Type Department Care Team Description 10/16/2021 Lab Visit [facility] 435 Low bone density Laboratory [address] [place] [address]. [place] [address] Social History Tobacco Use Types [...] 09/15/2022 Appointment Orthopedics Delgado Gottlieb MD [address] [place], [place] [address] (Gavi presley) 10/08/2022 Appointment Orthopedics Delgado Gottlieb MD [address] [place], [place] [address] (Gavi presley) 05/27/2023 Appointment Chemo Therapy/Infusion Services documented as of this encounter Procedures Procedure Name Priority Date/Time Associated Comments Diagnosis CBC AND DIFFERENTIAL Routine 10/16/2021 11:39 Low bone density Results for this PANEL AM ANIMAL CYTOLOGIST procedure are i n the results section. VITAMIN D 25-HYDROXY, Routine 10/16/2021 11:39 Low bone densit y Results for this TOTAL AM ANIMAL CYTOLOGIST procedure are i n the results section. INTACT PTH Routine 10/16/2021 11:39 Low bone density Results for this AM ANIMAL CYTOLOGIST procedure are i n the results section. COMPLETE BLOOD Routine 10/16/2021 11:39 Low bone density Resul ts for this COUNT-W/DIFF AM ANIMAL CYTOLOGIST procedure are i n the results section. COMP METABOLIC PANEL Routine 10/16/2021 11:39 Low bone density Results for this AM ANIMAL CYTOLOGIST procedure are i n the results section. TSH, SENSITIVE Routine 10/16/2021 11:39 Low bone density Resul ts for this AM ANIMAL CYTOLOGIST procedure are i n the results section. documented in this encounter Results (ABNORMAL) Complete Blood Count-W/Diff (10/16/2021 11:39 AM ANIMAL CYTOLOGIST) Analysis Performed At Patho logist Time Signature WBC 8.3 3.5 - 10.5 10/16/2021 [facility] x10(9)/L 2:52 PM [facility] RBC 2.49 (L) 4.32 - 10/16/2021 [facility] 5.72 2:52 PM [facility] x10(12)/L Hemoglobin 5.9 (LL) 13.5 - 10/16/2021 [facility] 17.5 g/dL 2:52 PM [facility] HCT 21.7 (L) 38.8 - 10/16/2021 [facility] 50.0 % 2:52 PM [facility] MCV 87.1 80.0 - 10/16/2021 [facility] 100.0 fL 2:52 PM [facility] MCH 23.7 (L) 27.6 - 10/16/2021 [facility] 33.3 pg 2:52 PM [facility] MCHC 27.2 (L) 31.5 - 10/16/2021 [facility] 35.2 g/dL 2:52 PM [facility] RDW 20.4 (H) 11.9 - 10/16/2021 [facility] 15.5 % 2:52 PM [facility] Platelets 305 150 - 450 10/16/2021 [facility] x10(9)/L 2:52 PM [facility] Automated NRBC 0 <=0 /100 10/16/2021 [facility] WBC 2:52 PM [facility] Neutrophil 6.8 1.7 - 7.0 10/16/2021 [facility] Absolute 10(9)/L 2:52 PM [facility] Lymphocyte 0.9 (L) 1.0 - 4.8 10/16/2021 [facility] Absolute 10(9)/L 2:52 PM [facility] Monocytes 0.5 0.2 - 0.9 10/16/2021 [facility] Absolute 10(9)/L 2:52 PM [facility] Eosinophil 0.1 0.0 - 0.5 10/16/2021 [facility] Absolute 10(9)/L 2:52 PM [facility] Basophil 0.0 0.0 - 0.3 10/16/2021 [facility] Absolute 10(9)/L 2:52 PM [facility] Immature Gran % 1.0 (H) 0.0 - 0.5 10/16/2021 [facility] % 2:52 PM [facility] Specimen Anatomical Collection Method / Collection Time Recei shahid Time (Source) Location / Volume Laterality Blood Venipuncture / 10/16/2021 11:39 2 Unknown AM ANIMAL CYTOLOGIST 11:39 AM ANIMAL CYTOLOGIST Delgado Gottlieb MD LAB_1 Performing Organization Address City/State/ZIP Code Phon e Number [address] [address] VITAMIN D 25-HYDROXY, TOTAL (V77.99) (10/16/2021 11:39 AM ANIMAL CYTOLOGIST) [facility] Method Time Signature Vitamin D, 69 30 - 80 10/16/20[email or web address] 25-[facility], Total ng/mL 3:06 PM [facility]OLOG[facility] CENTRAL LAB Specimen Anatomical Collection Method / Collection Time Recei shahid Time (Source) Location / Volume Laterality Blood Venipuncture / 10/16/2021 11:39 2 Unknown AM ANIMAL CYTOLOGIST 11:39 AM ANIMAL CYTOLOGIST Delgado Gottlieb MD LAB_1 Performing Organization Address City/State/ZIP Code Phon e Number [facility] CENTRAL LAB [address] [address] TSH, SENSITIVE (10/16/2021 11:39 AM ANIMAL CYTOLOGIST) [facility] Method Time Signature TSH, Sensitive 1.10 0.30 - 10/16/2021 [facility] 4.50 3:10 PM AN[facility] CYTOLOGIST C[facility]AL [facility] uIU/mL Specimen Anatomical Collection Method / Collection Time Recei shahid Time (Source) Location / Volume Laterality Blood Venipuncture / 10/16/2021 11:39 2 Unknown AM ANIMAL CYTOLOGIST 11:39 AM ANIMAL CYTOLOGIST Delgado Gottlieb MD LAB_1 Performing Organization Address City/[facility]/ZIP Code Phon e Number [facility] CENTRAL LAB [address] [address] (ABNORMAL) Intact PTH (10/16/2021 11:39 AM ANIMAL CYTOLOGIST) athologist Signature Intact PTH 107 (H) 10 - 100 10/16/2021 [facility] pg/mL 2:37 PM [facility] Specimen Anatomical Collection Method / Collection Time Recei shahid Time (Source) Location / Volume Laterality Blood Venipuncture / 10/16/2021 11:39 2 Unknown AM ANIMAL CYTOLOGIST 11:39 AM ANIMAL CYTOLOGIST Delgado Gottlieb MD LAB_1 Performing Organization Address City/State/ZIP Code Phon e Number [address] [address] (ABNORMAL) Comp Metabolic Panel (10/16/2021 11:39 AM ANIMAL CYTOLOGIST) [facility] Method Time Signature Sodium 138 136 - 145 10/16/2021 [facility] mmol/L 2:58 PM ANIMAL CYTOLOGIST CENTRAL LAB Potassium 4.7 3.5 - 5.1 10/16/2021 [facility] mmol/L 2:58 PM [facility]TOLOGIST CENTRAL LAB Chloride 107 98 - 109 10/16/2021 [facility] mmol/L 2:58 PM ANIMAL CYTOLOGIST CEN[facility]AL [facility] CO2 21 20 - 29 10/16/2021 [facility] mmol/L 2:58 PM ANIMAL CYTOLOGIST CENTRAL LAB Anion Gap 10 7 - 16 10/16/2021 [facility] mmol/L 2:58 PM ANIMAL CYTOLOGIST CENTRAL LAB Calcium 9.0 8.4 - 10/16/2021 [facility] 10.4 2:58 PM ANIMAL CYTOLOGIST CENTRAL LAB mg/dL BUN 26 7 - 26 10/16/2021 [facility] mg/dL 2:58 PM ANIMAL CYTOLOGIST CENTRAL LAB Creatinine 1.08 0.73 - 10/16/2021 [facility] 1.18 2:58 PM ANIMAL CYTOLOGIST CENTRAL LAB mg/dL GFR, Estimated >60 >60 10/16/2021 [facility] mL/min/1. 2:58 PM ANIMAL CYTOLOGIST CENTRAL LAB 73m2 Alkaline 79 40 - 150 10/16/2021 [facility] Phosphatase U/L 2:58 PM ANIMAL CYTOLOGIST CENTRAL LAB AST (SGOT) 12 10 - 40 10/16/2021 [facility] U/L 2:58 PM ANIMAL CYTOLOGIST CENTRAL LAB ALT (SGPT) 11 0 - 55 10/16/2021 [facility] U/L 2:58 PM ANIMAL CYTOLOGIST CENTRAL LAB Bilirubin, 0.5 0.2 - 1.2 10/16/2021 [facility] Total mg/dL 2:58 PM ANIMAL CYTOLOGIST CENTRAL LAB Protein, Total 6.1 (L) 6.4 - 8.3 10/16/2021 [facility] g/dL 2:58 PM ANIMAL CYTOLOGIST CENTRAL LAB Albumin 3.4 (L) 3.5 - 5.0 10/16/2021 [facility] g/dL 2:58 PM ANIMAL CYTOLOGIST CENTRAL LAB Glucose 110 (H) 70 - 100 10/16/2021 [facility] mg/dL 2:58 PM ANIMAL CYTOLOGIST CENTRAL LAB Comment: The given reference range is fo r the fasting state. Non-fasting reference range for glucose is 70 - 180 mg/dL. Hours Fasting 4 10/16/2021 2:58 PM ANIMAL CYTOLOGIST [facility] 435 LABORATORY Specimen Anatomical Collection Method / Collection Time Recei shahid Time (Source) Location / Volume Laterality Blood Venipuncture / 10/16/2021 11:39 2 Unknown AM ANIMAL CYTOLOGIST 11:39 AM ANIMAL CYTOLOGIST Delgado Gottlieb MD LAB_1 Performing Organization Address City/State/ZIP Code Phon e Number [facility] CENTRAL LAB [address] 435 LABORATORY documented in this encounter Visit Diagnoses Diagnosis Low bone density documented in this encounter Care Teams Supervisor Boiler Repair Relationship Specialty Start Date End Date Cintia Cobb MD PCP - General Family Practice 09/30/21 documented as of this encounter
--- OUTSIDE RECORDS SUMMARY | 2022-08-05 10:31 | XMS_ITS | Encounter Summary ---
:1960 Author Organization [facility] Address [address] [place] [address] Care Team Providers Name Role Phone Cintia Cobb MD Primary Care Provider [phone] Reason for Referral Therapies (Routine) - New Request Specialty Diagnoses / Procedures Referred By Contact Refer red To Contact Diagnoses Closed fracture of distal end of left femur with routine healing, unspecified fracture morphology, subsequent encounter Delgado Gottlieb MD [address] [place] [address] Referral ID Status Reason Start Date Expiration Date Visits V isits Requested Authorized [id number] New Request 11/27/2021 11/27/2022 1 1 Scheduling [...] Procedures XR Femur Lt 2 Views [address] [place] [address] Referral ID Status Reason Start Date Expiration Date Visits V isits Requested Authorized [id number] Incomplete 11/27/2021 02/26/2023 1 1 ANALYST Reason for Visit Reason Comments POST-OP,EXAM Encounter Details Date Type Department Care Team Description 11/27/2021 Office Visit Specialty Center Delgado Gottlieb, Domenica sed fracture of [address] [facility] MD distal end of left [address] [place] [address] [place] healing, unspecified [phone] fracture morphology, subsequent enco unter (Work) (Primary [...] as of this encounter Patient Instructions Patient InstructionsMillaminaKarri - 11/27/2021 10:20 AM CDT ORTHOPAEDICS DEPARTMENT PHONE NUMBER: [phone] Reason for today's visit: POST-OP,EXAM Treatment plan: [...] TIME PROVIDER LOCATION APPT NOTES ( ) [facility]: [address] [place] [address] ( ) [facility]: [address] [place], [place] ( ) Other: S/p ORIF/IMN supracondylar distal femur fx, DOS: 10/01/2021 ( ) [facility]: [address] [place] [address] ( ) [facility] [address] [place], [place] ( ) Other: If you have any questions about your visit, your symptoms, your medication, your test results or it is not clear what your diagnosis or treatment plan is please contact us at [phone] or send us a secure message via [employer]. You may receive a survey in the mail regarding your visit today. Your feedback is very important to us, please take a moment to complete the survey which is completely anonymous. If you would like to speak to someone specifically, you may contact the clinic at [phone] and your call will be directed to [...] and you will be connected to a billing representative who can assist you with your [...] he is makingprogress. He does PT at [facility]. He uses the recumbent bicycle and the [...] not had a lot of swelling. 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 Delgado Gottlieb MD Can Slider [facility] Department of Orthopaedic Surgery [facility] documented in this encounter Plan of Treatment Upcoming Encounters Date Type Specialty Care Team Description 09/15/2022 Appointment Orthopedics Delgado Gottlieb MD [address] [place] [address] (Gavi presley) 10/08/2022 Appointment Orthopedics Delgado Gottlieb MD [address] [place] [address] (Gavi presley) 05/27/2023 Appointment Chemo Therapy/Infusion Services Scheduled Referrals Name Type Priority Associated Diagnoses Order S chedule PT - PHYSICAL THERAPY Referral Routine Closed fracture of distal Ordered: 11/27/2021 [[id number]] end of left femur with routine healing, [...] EXAM: XR FEMUR LT 2 VIEWS LOCATION: [place] [address] DATE/TIME: 11/27/2021 9:59 AM INDICATION: Open reduction internal fixa tion of left supracondylar distal femur fracture COMPARISON: 10/16/2021 IMPRESSION: ORIF of the left femur. No n ew hardware complication. Incomplete healing of a distal left femur fracture. Procedure Note Sebas Thompson MD - 11/27/2021Formatti ng of this note might be different from the original. EXAM: XR FEMUR LT 2 VIEWS LOCATION: [facility] 435 DATE/TIME: 11/27/2021 9:59 AM INDICATION: Open [...] r documented in this encounter Care Teams Operations Processor Relationship Specialty Start Date End Date Cintia Cobb MD PCP - General Family Practice 09/30/21 documented as of this encounter
--- OUTSIDE RECORDS SUMMARY | 2022-08-05 10:31 | XMS_ITS | Encounter Summary ---
:1960 Author Organization [facility] Address [address] [facility] [address] Care Team Providers Name Role Phone Cintia Cobb MD Primary Care Provider [phone] Reason for Visit Reason Comments IV,THERAPY Prior Authorization For Infusion Medication Reclast [id number] - add additional DIAG code to TP Order Encounter Details Date Type Department Care Team Description 01/10/2022 Telephone [facility] Delmer Valladares, ONOFRE,THE RAPY; Prior CENTER PA-C Authorization For [address] Infusion Medication [place], [place] [address] [place], [place] (Reclast [id number] - add [phone] additional DIAG code to [phone] (Wo rk) TP Order) Social History Tobacco [...] one. Thank you, Jelena [facility] German Tutor [address] Mail Stop: [address] [place] [address] Office: [phone] documented in this encounter Plan of Treatment Upcoming Encounters Date Type Specialty Care Team Description 09/15/2022 Appointment Orthopedics Delgado Gottlieb MD [address] [place], [place] [address] (Gavi presley) 10/08/2022 Appointment Orthopedics Delgado Gottlieb MD [address] [place], [place] [address] (Gavi presley) 05/27/2023 Appointment Chemo Therapy/Infusion Services documented as of this encounter Visit Diagnoses Not on filedocumented in this encounter Care Teams Basket Patcher Relationship Specialty Start Date End Date Cintia Cobb MD PCP - General Family Practice 09/30/21 documented as of this encounter
--- OUTSIDE RECORDS SUMMARY | 2022-08-05 10:31 | XMS_ITS | Encounter Summary ---
:1960 Author Organization [facility] Address [address] [place] [address] Care Team Providers Name Role Phone Cintia Cobb MD Primary Care Provider [phone] Reason for Referral Consult/Transfer Care (Routine) - New Request Specialty Diagnoses / Procedures Referred By Contact Refer red To Contact Diagnoses Low bone density Delgado Gottlieb MD [address] [place] [address] Referral ID Status Reason Start Date Expiration Date Visits V isits Requested Authorized [id number] New Request 10/16/2021 01/15/2023 1 1 Scheduling Instructions Your provider has recommended an appoint ment with [facility]. You can quickly make your appointment online at [employer]/schedule. You can also call [phone] for help scheduling yo ur appointment. We suggest you call your health insurance company about your cove rage and benefits for this appointment. ENT MIXER Procedure/Equipment (Routine) - Incomplete Specialty Diagnoses / Procedures Referred By Contact Refer red To Contact Diagnoses Closed fracture of distal end of left femur with routine healing, unspecified fracture morphology, subsequent encounter Delgado Gottlieb MD Procedures XR Femur Lt 2 Views [address] [place] [address] Referral ID Status Reason Start Date Expiration Date Visits V isits Requested Authorized [id number] Incomplete 10/16/2021 01/15/2023 1 1 ENT MIXER Reason for Visit Reason Comments POST-OP,EXAM Consult/Transfer Care (Routine) - New Request Specialty Diagnoses / Procedures Referred By Contact Refer red To Contact Diagnoses Closed fracture of distal end of left femur, unspecified fracture morphology, initial encounter ([facility]) Suzie Daigle PA-C [address] [place] [address] Referral ID Status Reason Start Date Expiration Date Visits V isits Requested Authorized [id number] New Request 10/02/2021 01/01/2023 1 1 Encounter Details Date Type Department Care Team Description 10/16/2021 Office Visit Specialty Center Delgado Gottlieb, Domenica bell fracture of distal end of left femur with routine healing, unspecified fracture morphology, subsequent encounter (Primary Dx); [address] [facility] Low bone density [address] [place] [address] [place], [place] [phone] [id number] Social History Tobacco Use Types Packs/Day Years [...] this encounter Patient Instructions Patient InstructionsPeGretchen herman, ATC - 10/16/2021 10:20 AM CST ORTHOPAEDICS DEPARTMENT PHONE NUMBER: [phone] Reason for today's visit: POST-OP,EXAM Treatment plan: [...] You can get them done at any [facility] lab. Call [phone] to schedule a DEXA Scan to see how strong your bones are. [facility] will be contacting you to schedule a Bone Health Consultwith them, or you can call [phone], to discuss the results of your bone health screening and any treatments that you may need. This can be done in person or via a video visit using the [employer] jannie. [place] were removed today, and steri-strips applied. Leave [...] taken with your next Orthopaedics appointment. Please eqzgof10 minutes early for your appointment. Reason for next Orthopaedics appointment: Post op ORIF/IMN supracondylar distal femur fx DOS: 10/01/2021 Please stop at the check out desk to schedule a follow up appointment. Use this grid to write down your next appointment. DATE & TIME PROVIDER LOCATION APPT NOTES ( ) [facility]: [address] [place] [address] ( ) [facility]: [address] [place], [place] ( ) Other: Post op ORIF/IMN supracondylar distal femur fx DOS: 10/01/2021 ( ) [facility]: [address] [place] [address] ( ) [facility] [address] [place], [place] ( ) Other: If you have any questions about your visit, your symptoms, your medication, your test results or it is not clear what your diagnosis or treatment plan is please contact us at [phone] or send us a secure message via Ins[employer]. You may receive a survey in the mail regarding your visit today. Your feedback is very important to us, please take a moment to complete the survey which is completely anonymous. If you would like to speak to someone specifically, you may contact the clinic at [phone] and your call will be directed to someone on our leadership team. Thank you for choosing Delgado Gottlieb MD and [facility]. Did you know, you can now reach us for appointment scheduling seven days a week, 365 days a year from 7am to 9pm? Just call our main number, , listen to the prompts and you will be connected to a fulfillment representative who can assist you with your appointment scheduling needs. ENT MIXER documented in this encounter Progress Notes Delgado [...] week in his local area at a [facility]. He notes that he was told he would get exercises by the inpatient PT at [facility], though never received these. 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 Charles were removed today. There is resolving ecchymosis [...] contain unintended word substitutions. Delgado Gottlieb MD Desktop Publishing Associate [facility] Department of Orthopaedic Surgery [facility] ADDENDUM: The patient's bone health labs came [...] if he develops any symptoms of anemia. ENT MIXER documented in this encounter Plan of Treatment Upcoming Encounters Date Type Specialty Care Team Description 09/15/2022 Appointment Orthopedics Delgado Gottlieb MD [address] [place], [place] [id number] (Wo rk) 10/08/2022 Appointment Orthopedics Delgado Gottlieb MD [address], [place] [address] (Wo rk) 05/27/2023 Appointment Chemo Therapy/Infusion Services Scheduled Referrals Name Type Priority Associated Diagnoses Order S chedule Osteoporosis-Orthopedics Referral Routine Low bone density Ordered: 10/16/2021 [[id number]] documented as of this encounter Results VITAMIN D 25-HYDROXY, TOTAL (V77.99) (10/16/2021 11:39 AM SOLVENT MIXER) [facility] Method Time Signature Vitamin D, 69 30 - 80 10/16/2021 [facility] 25-OH, Total ng/mL 3:06 PM SOLVENT MIXER CENTRAL LAB Specimen Anatomical Collection Method / Collection Time Recei shahid Time (Source) Location / Volume Laterality Blood Venipuncture / 10/16/2021 11:39 2 Unknown AM SOLVENT MIXER 11:39 AM SOLVENT MIXER Delgado Gottlieb MD LAB_1 Performing Organization Address [facility] Phon e Number [facility] [address] [address] TSH, SENSITIVE (10/16/2021 11:39 AM SOLVENT MIXER) [facility] Method Time Signature TSH, Sensitive 1.10 0.30 - 10/16/2021 [facility] 4.50 3:10 PM SOLVENT MIXER CENTRAL LAB uIU/mL Specimen Anatomical Collection Method / Collection Time Recei shahid Time (Source) Location / Volume Laterality Blood Venipuncture / 10/16/2021 11:39 2 Unknown AM SOLVENT MIXER 11:39 AM SOLVENT MIXER Delgado Gottlieb MD LAB_1 Performing Organization Address [facility] Phon [facility] Number [facility] [address] [address] (ABNORMAL) Intact PTH (10/16/2021 11:39 AM SOLVENT MIXER) P athologist Signature Intact PTH 107 (H) 10 - 100 10/16/2021 [facility] pg/mL 2:37 PM SOL[facility] M[facility]ER HOSPITAL Specimen Anatomical Collection Method / Collection Time Recei shahid Time (Source) Location / Volume Laterality Blood Venipuncture / 10/16/2021 11:39 2 Unknown AM SOLVENT MIXER 11:39 AM SOLVENT MIXER Delgado Gottlieb MD LAB_1 Performing Organization Address City/State/ZIP [place] [address] (ABNORMAL) Comp Metabolic Panel (10/16/2021 11:39 AM SOLVENT MIXER) [facility] Method Time Signature Sodium 138 136 - 145 10/16/2021 [facility] mmol/L 2:58 PM SOLVENT MIXER CENTRAL LAB Potassium 4.7 3.5 - 5.1 10/16/2021 [facility] mmol/L 2:58 PM SOLVENT MIXER CENTRAL LAB Chloride 107 98 - 109 10/16/2021 [facility] mmol/L 2:58 PM SOLVENT MIXER CENTRAL LAB CO2 21 20 - 29 10/16/2021 [facility] mmol/L 2:58 PM SOLVENT MIXER CENTRAL LAB Anion Gap 10 7 - 16 10/16/2021 [facility] mmol/L 2:58 PM SOLVENT MIXER CENTRAL LAB Calcium 9.0 8.4 - 10/16/2021 [facility] 10.4 2:58 PM SOLVENT MIXER CENTRAL LAB mg/dL BUN 26 7 - 26 10/16/2021 [facility] mg/dL 2:58 PM SOLVENT MIXER CENTRAL LAB Creatinine 1.08 0.73 - 10/16/2021 [facility] 1.18 2:58 PM SOLVENT MIXER CENTRAL LAB mg/dL GFR, Estimated >60 >60 10/16/2021 [facility] mL/min/1. 2:58 PM SOLVENT MIXER CENTRAL LAB 73m2 Alkaline 79 40 - 150 10/16/2021 [facility] Phosphatase U/L 2:58 PM SOLVENT MIXER CENTRAL LAB AST (SGOT) 12 10 - 40 10/16/2021 [facility] U/L 2:58 PM SOLVENT MIXER CENTRAL LAB ALT (SGPT) 11 0 - 55 10/16/2021 [facility] U/L 2:58 PM SOLVENT MIXER CENTRAL LAB Bilirubin, 0.5 0.2 - 1.2 10/16/2021 [facility] Total mg/dL 2:58 PM SOLVENT MIXER CENTRAL LAB Protein, Total 6.1 (L) 6.4 - 8.3 10/16/2021 [facility] g/dL 2:58 PM SOLVENT MIXER CENTRAL LAB Albumin 3.4 (L) 3.5 - 5.0 10/16/2021 [facility] g/dL 2:58 PM SOLVENT MIXER CENTRAL LAB Glucose 110 (H) 70 - 100 10/16/2021 [facility] mg/dL 2:58 PM SOLVENT MIXER CENTRAL LAB Comment: The given reference range is fo r the fasting state. Non-fasting reference range for glucose is 70 - 180 mg/dL. Hours Fasting 4 10/16/2021 2:58 PM SOLVENT MIXER [facility] [address] LABORATORY Specimen Anatomical Collection Method / Collection Time Recei shahid Time (Source) Location / Volume Laterality Blood Venipuncture / 10/16/2021 11:39 2 Unknown AM SOLVENT MIXER 11:39 AM SOLVENT MIXER Delgado Gottlieb MD LAB_1 Performing Organization Address City/State/ZIP Code Phon e Number [facility] CENTRAL LAB [address] LABORATORY XR Femur Lt 2 Views (10/16/2021 10:01 AM SOLVENT MIXER) Anatomical Region Laterality Modality Lower Extremity, Leg, Thigh Computed Rad iography Specimen (Source) Anatomical Collection Method Collection Time Re ceived Time Location / / Volume Laterality 10/16/2021 10:01 AM SOLVENT MIXER Narrative 10/16/2021 2:21 PM SOLVENT MIXER EXAM: XR FEMUR LT 2 VIEWS LOCATION: [place] [address] DATE/TIME: 10/16/2021 10:01 AM INDICATION: Open reduction [...] bone density Aftercare [facility] Aftercare [facility], NEC documented in this encounter Care Teams Cash Register Servicer Relationship Specialty Start Date End Date Cintia Cobb MD PCP - General Family Practice 09/30/21 documented as of this encounter
--- OUTSIDE RECORDS SUMMARY | 2022-08-05 10:31 | XMS_ITS | Encounter Summary ---
:1960 Author Organization [employer] Address [address] [place] [address] Care Team Providers Name Role Phone Cintia Cobb MD Primary Care Provider [phone] Reason for Visit Reason Comments QUESTIONS, GENERAL Encounter Details Date Type Department Care Team Description 12/23/2021 Telephone [facility] Cesar Champagne, QUESTIONS, GENERAL [address] [place], [place] [address] [address] [phone] [place] [phone] (Wo rk) Social History Tobacco Use [...] from the nurse. Declined to give to internal communications writer to put in the message. Patient does not have voicemail. documented in this encounter Plan of Treatment Upcoming Encounters Date Type Specialty Care Team Description 09/15/2022 Appointment Orthopedics Delgado Gottlieb MD [address] [place], [place] [address] (Gavi rk) 10/08/2022 Appointment Orthopedics Delgado Gottlieb MD [address] [place], [place] [address] (Gavi presley) 05/27/2023 Appointment Chemo Therapy/Infusion Services documented as of this encounter Visit Diagnoses Not on filedocumented in this encounter Care Teams Java Sdet Relationship Specialty Start Date End Date Cintia Cobb MD PCP - General Family Practice 09/30/21 documented as of this encounter
--- OUTSIDE RECORDS SUMMARY | 2022-08-05 10:31 | XMS_ITS | Encounter Summary ---
:1960 Author Organization [facility] Address [address], [place] [address] Care Team Providers Name Role Phone Cintia Cobb MD Primary Care Provider [phone] Encounter Details Date Type Department Care Team Description 01/11/2022 Notes/Orders [facility] [place], Age-re lated Orthopa[facility]ics [facility] PA-C osteoporosis with Medicine [address] [place] [address] current pathological [address] [facility] [place], [place] fracture, initial [place], [place] [phone] encounter (Primary [phone] Dx) (Work) Social History Tobacco Use Types [...] Description 09/15/2022 Appointment Orthopedics Delgado Gottlieb MD [address] [place] [address] (Wo rk) 10/08/2022 Appointment Orthopedics Delgado Gottlieb MD [address] [place] [address] (Wo rk) 05/27/2023 Appointment Chemo Therapy/Infusion Services documented as of this encounter Visit Diagnoses Diagnosis Age-related osteoporosis with current pa thological fracture, initial encounter - Primary documented in this encounter Care Teams Steam Hammer Operator Relationship Specialty Start Date End Date Cintia Cobb MD PCP - General Family Practice 09/30/21 documented as of this encounter
--- OUTSIDE RECORDS SUMMARY | 2022-08-05 10:31 | XMS_ITS | Encounter Summary ---
:1960 Author Organization [facility] Address [address] [place] [address] Care Team Providers Name Role Phone Cintia Cobb MD Primary Care Provider [phone] Reason for Visit Reason Comments OSTEOPOROSIS Consult/Transfer Care (Routine) - New Request Specialty Diagnoses / Procedures Referred By Contact Refer red To Contact Diagnoses Low bone density Delgado Gottlieb MD [address] [place] [id number] Referral ID Status Reason Start Date Expiration Date Visits V isits Requested Authorized [id number] New Request 10/16/2021 01/15/2023 1 1 Encounter Details Date Type Department Care Team Description 01/08/2022 Office Visit [facility]adares[facility] osteoporosis with [address] [facility] [address] [place] [address] current pathological [place], [place] [address] [place], [place] fracture, initial [phone] encounter (Primary [phone] (Wo rk) Dx) Social History Tobacco Use [...] you contact your insurance to verify your [id number] expense for all medications, as it may [...] daily through food and supplements. Vitamin D: 8019-6291 IU daily Exercise Aerobic Exercise: Work your [...] ice pack on the infusionsite or taking mhbi-tco-gzwkmic pain relievers such as acetaminophen as detailed [...] Treatment History Fosamax- years ago prescribed through [facility] History The patient [...] baseline bone density test (first one at [facility]) ?? VERTEBRAL FRACTURE ASSESSMENT: No vertebral fractures [...] the disease with the patient.The patient meets [facility] criteria for the clinical diagnosis of osteoporosis [...] 09/15/2022 Appointment Orthopedics Delgado Gottlieb MD [address] [place], [place] [address] (Wo rk) 10/08/2022 Appointment Orthopedics Delgado Gottlieb MD [address] [place] [address] (Wo rk) 05/27/2023 Appointment Chemo Therapy/Infusion Services documented as of this encounter Visit Diagnoses Diagnosis Age-related osteoporosis with current pa thological fracture, initial encounter - Primary documented in this encounter Care Teams Legal Recruiter Relationship Specialty Start Date End Date Cintia Cobb MD PCP - General Family Practice 09/30/21 documented as of this encounter
--- OUTSIDE RECORDS SUMMARY | 2022-08-05 10:31 | XMS_ITS | Encounter Summary ---
:1960 Author Organization [employer] Address [address] [place] [address] Care Team Providers Name Role Phone Cintia Cobb MD Primary Care Provider [phone] Reason for Visit Reason Comments QUESTIONS, GENERAL Encounter Details Date Type Department Care Team Description 01/03/2022 Telephone [facility] Cesar Champagne, QUESTIONS, GENERAL [address] [place], [place] [address] [address] [phone] [place] [phone] (Wo rk) Social History Tobacco Use [...] leave detailed message on your voicemail? No [Signals Intelligence Superintendent/Appt Center: If this call is after 3 p.m., communicate to patient: If we are not able to get back to you by the end of the day and your symptoms worsen please contact the Careline] documented in this encounter Plan of Treatment Upcoming Encounters Date Type Specialty Care Team Description 09/15/2022 Appointment Orthopedics Delgado Gottlieb MD [address] [place], [place] [address] (Gavi presley) 10/08/2022 Appointment Orthopedics Delgado Gottlieb MD [address] [place], [place] [address] (Gavi presley) 05/27/2023 Appointment Chemo Therapy/Infusion Services documented as of this encounter Visit Diagnoses Not on filedocumented in this encounter Care Teams Sleeve Separator Relationship Specialty Start Date End Date Cintai Cobb MD PCP - General Family Practice 09/30/21 documented as of this encounter
--- OUTSIDE RECORDS SUMMARY | 2022-08-05 10:31 | XMS_ITS | Encounter Summary ---
:1960 Author Organization [facility] Address [address] [place] [address] Care Team Providers Name Role Phone Cintia Cobb MD Primary Care Provider Reason for Visit Reason Comments LAB RESULTS Critical lab result Encounter Details Date Type Department Care Team Description 10/16/2021 Telephone Specialty Center [address] Delgado Gottlieb, LAB RESULTS (Critical Orthopedics Clinic lab result ) [address] [place] [address] [place], [place] [phone] Social History Tobacco Use Types Packs/Day Years [...] Patient notified of the approval of the Range and to not go over 3000 mg of Tylenol a day as there is Tylenol in the Range. He verbalized understanding. Rosetta Ye RN 10/23/2021, 11:50 AM OR WEB SERVICES DEVELOPER Rosetta Ye RN - 10/21/2021 9:00 AM CST [facility] at [phone] and follow the prompt for [facility] and ask to speak with one of the nurses. Letter sent Rosetta Ye RN 10/21/2021, 9:00 AM OR WEB SERVICES DEVELOPER Rosetta Ye RN - 10/18/2021 8:51 AM CST [facility] at [phone] and follow the prompt for [facility] and ask to speak with one of the nurses. Rosetta Ye RN 10/18/2021, 8:51 AM OR WEB SERVICES DEVELOPER Rosetta Ye RN - 10/17/2021 8:08 AM CST [facility] at [phone] and follow the prompt for [facility] and ask to speak with one of the nurses. Rosetta Ye RN 10/17/2021, 8:09 AM OR WEB SERVICES DEVELOPER Delgado Gottlieb MD - 10/16/2021 9:15 PM CST Thanks. Range refill approved and sent to the patient's pharmacy. I discussed this with him today but please remind them that he cannot take Tylenol with the Range because it has acetaminophen already in it. [...] well documented resistance to receiving blood products. OR WEB SERVICES DEVELOPER Rosetta Ye RN - 10/16/2021 3:37 PM [...] could get a script sent to the [facility] in [place]. Please advise. Thank you. Rosetta Ye RN 10/16/2021, 3:43 PM OR WEB SERVICES DEVELOPER Rosetta Ye RN - 10/16/2021 2:55 PM [...] be willing to start an iron tablet. [facility] at [phone] and follow the prompt for [facility] and ask to speak with one of the nurses. Rosetta Ye RN 10/16/2021, 3:12 PM OR WEB SERVICES DEVELOPER documented in this encounter Plan of Treatment Upcoming Encounters Date Type Specialty Care Team Description 09/15/2022 Appointment Orthopedics Delgado Gottlieb MD [address] [place], [place] [address] (Wo rk) 10/08/2022 Appointment Orthopedics Delgado Gottlieb MD [address] [place] [address] (Wo rk) 05/27/2023 Appointment Chemo Therapy/Infusion Services documented as of this encounter Visit Diagnoses Not on filedocumented in this encounter Care Teams Shredding Machine Knife Changer Relationship Specialty Start Date End Date Cintia Cobb MD PCP - General Family Practice 09/30/21 documented as of this encounter
--- OUTSIDE RECORDS SUMMARY | 2022-08-05 10:31 | XMS_ITS | Encounter Summary ---
:1960 Author Organization [facility] Address [address] [place] [address] Care Team Providers Name Role Phone Cintia Cobb MD Primary Care Provider [phone] Reason for Visit Reason Comments QUESTIONS, GENERAL Encounter Details Date Type Department Care Team Description 10/08/2021 Telephone Specialty Center [address] Delgado Gottlieb MD QUESTIONS, GENERAL Orthopedics Clinic [address] [place] [address] [place] [address] [phone] Social History Tobacco Use Types Packs/Day Years [...] basement. Rosetta Ye RN 10/08/2021, 3:24 PM RAFT SHIPPING CHECKER documented in this encounter Plan of Treatment Upcoming Encounters Date Type Specialty Care Team Description 09/15/2022 Appointment Orthopedics Delgado Gottlieb MD [address] [place] [address] (Gavi presley) 10/08/2022 Appointment Orthopedics Delgado Gottlieb MD [address] [place] [address] (Gavi presley) 05/27/2023 Appointment Chemo Therapy/Infusion Services documented as of this encounter Visit Diagnoses Not on filedocumented in this encounter Care Teams Building Carpenter Helper Relationship Specialty Start Date End Date Cintia Cobb MD PCP - General Family Practice 09/30/21 documented as of this encounter
--- OUTSIDE RECORDS SUMMARY | 2022-08-05 10:31 | XMS_ITS | Encounter Summary ---
:1960 [facility] Address [address] [place] [address] Care Team Providers Name Role Phone Cintia Cobb MD Primary Care Provider [phone] Reason for Visit Reason Comments QUESTIONS, GENERAL Encounter Details Date Type Department Care Team Description 10/14/2021 Telephone Specialty [facility] [address] Delgado Gottlieb MD QUESTIONS, GENERAL Orth[facility]ics [facility] [address] [place] [address] [place] [address] [phone] Social History Tobacco Use Types Packs/Day Years [...] maybe had 4 total in the hospital. [id number] mg arthritis strength BID and ibuprofen 400 [...] clinic appt on 10/16/21. 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 Continue to ice/elevate, increase frequency as mobility increases. Rosetta Garland RN to call and discuss ASA use with patient. Mary Lou Baumann RN 10/14/2021, 12:52 PM Jenniffer Garza RN - 10/14/2021 10:56 AM CST Called the patient's home number as this is what is bold in his chart. Left message for pt to call back at [phone] and press the option for [facility]. Jenniffer Carpenter RN 10/14/2021, 10:57 AM Jenni An - 10/14/2021 10:47 AM CST Ed called wanting to speak with Rosetta. He stated that it was urgent and need to speak with her JEY.Mail Room had asked what it was regarding and patient had hung up the call. Ed also stated prior to thecall was disconnected that his phone does not incoming calls. Mail Room was unable to get the best callback number. Please advise. Jenni Sanchez 10/14/2021, 10:49 AM ETIC SHOE DESIGNER documented in this encounter Plan of Treatment Upcoming Encounters Date Type Specialty Care Team Description 09/15/2022 Appointment Orthopedics Delgado Gottlieb MD [address] [place] [phone] (Wo rk) 10/08/2022 Appointment Orthopedics Delgado Gottlieb MD [address] [place], [place] [address] (Wo rk) 05/27/2023 Appointment Chemo Therapy/Infusion Services documented as of this encounter Visit Diagnoses Not on filedocumented in this encounter Care Teams Blend Plant Operator Relationship Specialty Start Date End Date Cintia Cobb MD PCP - General Family Practice 09/30/21 documented as of this encounter
--- OUTSIDE RECORDS SUMMARY | 2022-08-05 10:31 | XMS_ITS | Encounter Summary ---
:1960 Author Organization [facility] Address [address] [place] [address] Care Team Providers Name Role Phone Cintia Cobb MD Primary Care Provider [phone] Reason for Visit Procedure/Equipment (Routine) - Incomplete Specialty Diagnoses / Procedures Referred By Contact Refer red To Contact Diagnoses Closed fracture of distal end of left femur with routine healing, unspecified fracture morphology, subsequent encounter Delgado Gottlieb MD Procedures XR Femur Lt [address] [place] [address] Referral ID Status Reason Start Date Expiration Date Visits V isits Requested Authorized [id number] Incomplete 11/27/2021 02/26/2023 1 1 Encounter Details Date Type Department Care Team Description 11/27/2021 [facility] Closed frac ture of Procedure [facility] Donnell Murray MD distal end of left Radiology [address] femur with routine [address] healing, [place] [address] [place], [place] unspecified [phone] fracture [phone] morphology, (Work) subsequent [phone] encounter (Fax) Social History Tobacco Use Types [...] 09/15/2022 Appointment Orthopedics Delgado Gottlieb MD [address] [place], [place] [address] (Wo rk) 10/08/2022 Appointment Orthopedics Delgado Gottlieb MD [address] [place], [place] [address] (Wo rk) 05/27/2023 Appointment [...] EXAM: XR FEMUR LT 2 VIEWS LOCATION: [facility] 435 DATE/TIME: 11/27/2021 9:59 AM [...] EXAM: XR FEMUR LT 2 VIEWS LOCATION: [facility] 435 DATE/TIME: 11/27/2021 9:59 AM [...] r documented in this encounter Care Teams Cath Lab Manager Relationship Specialty Start Date End Date Cintia Cobb MD PCP - General Family Practice 09/30/21 documented as of this encounter
--- OUTSIDE RECORDS SUMMARY | 2022-08-05 10:31 | XMS_ITS | Encounter Summary ---
:1960 Author Organization [facility] Address [address] [place] [address] Care Team Providers Name Role Phone Cintia Cobb MD Primary Care Provider [phone] Encounter Details Date Type Department Care Team Description 11/19/2021 Notes/Orders [facility] Cesar Champagne, [address] [place], [place] [address] [address] [address] [place] [address] (Gavi rk) Social History Tobacco [...] 09/15/2022 Appointment Orthopedics Delgado Gottlieb MD [address] [place] [phone] (Gavi rk) 10/08/2022 Appointment Orthopedics Delgado Gottlieb MD [address] [place] [phone] (Wo rk) 05/27/2023 Appointment Chemo Therapy/Infusion Services documented as of this encounter Visit Diagnoses Not on filedocumented in this encounter Care Teams Interactive Multimedia Designer Relationship Specialty Start Date End Date Cintia Cobb MD PCP - General Family Practice 09/30/21 documented as of this encounter
--- OUTSIDE RECORDS SUMMARY | 2022-08-05 10:32 | XMS_ITS | Encounter Summary ---
:1960 Author [facility] Address [address] [address] Care Team Providers Name Role Phone Cintia Cobb MD Primary Care Provider [phone] Encounter Details Date Type Department Care Team Description 10/02/2021 Orders Only [facility] S9 Suzie Daigle, PA-C [address] [facility] [place] [address] [place] [address] [place] [address] [phone] (Gavi presley) Social History Tobacco Use Types [...] 09/15/2022 Appointment Orthopedics Delgado Gottlieb MD [address] [place], [place] [address] (Gavi rk) 10/08/2022 Appointment Orthopedics Delgado Gottlieb MD [address] [place], [place] [address] (Wo rk) 05/27/2023 Appointment Chemo Therapy/Infusion Services documented as of this encounter Visit Diagnoses Not on filedocumented in this encounter Care Teams Cell Maker Relationship Specialty Start Date End Date Cintia Cobb MD PCP - General Family Practice 09/30/21 documented as of this encounter
--- OUTSIDE RECORDS SUMMARY | 2022-08-05 10:32 | XMS_ITS | Encounter Summary ---
:1960 Author Organization [facility] Address [address], [place] [address] Care Team Providers Name Role Phone Cintia Cobb MD Primary Care Provider [phone] Reason for Visit Auth/Cert Specialty Diagnoses / [...] Expiration Date Visits Requ ested Visits Authorized [id number] 1 1 Encounter Details Date Type Department Care Team Description 10/02/2021 Ancillary Procedure [facility] [address] [place] [address] Social History Tobacco Use Types Packs/Day Years [...] 09/15/2022 Appointment Orthopedics Delgado Gottlieb MD [address] [place] [phone] (Wo rk) 10/08/2022 Appointment Orthopedics Delgado Gottlieb MD [address] [place], [place] [address] (Wo rk) 05/27/2023 Appointment Chemo Therapy/Infusion Services documented as of this encounter Procedures Procedure Name Priority Date/Time Associated Diagnosis Comme nts XR FEMUR LT 2 VIEWS Routine 10/02/2021 10:21 AM R esults for this FOREIGN LANGUAGE INSTRUCTOR procedure are i n the results section. documented in this encounter Results XR Femur Lt 2 Views (10/02/2021 10:21 AM FOREIGN LANGUAGE INSTRUCTOR) Anatomical Region Laterality Modality Lower Extremity, Leg, Thigh Computed Rad iography Specimen (Source) Anatomical Collection Method Collection Time Re ceived Time Location / / Volume Laterality 10/02/2021 10:21 AM FOREIGN LANGUAGE INSTRUCTOR Narrative 10/02/2021 10:37 AM FOREIGN LANGUAGE INSTRUCTOR EXAM: XR FEMUR LT 2 VIEWS LOCATION: [...] on filedocumented in this encounter Care Teams Cherry Dipper Relationship Specialty Start Date End Date Cintia Cobb MD PCP - General Family Practice 09/30/21 documented as of this encounter
--- OUTSIDE RECORDS SUMMARY | 2022-08-05 10:32 | XMS_ITS | Encounter Summary ---
:1960 Author Organization [facility] Address [address], [place] [address] Care Team Providers Name Role Phone Cintia Cobb MD Primary Care Provider [phone] Reason for Visit Auth/Cert Specialty Diagnoses / [...] Expiration Date Visits Requ ested Visits Authorized [id number] 1 1 Encounter Details Date Type Department Care Team Description 10/01/2021 Ancillary Procedure [facility] [address] [place] [address] Social History Tobacco Use Types Packs/Day Years [...] Description 09/15/2022 Appointment Orthopedics Delgado Gottlieb MD [address] [place] [phone] (Gavi presley) 10/08/2022 Appointment Orthopedics Delgado Gottlieb MD [address] [place], [place] [address] (Gavi presley) 05/27/2023 Appointment Chemo Therapy/Infusion Services documented as of this encounter Procedures Procedure Name Priority Date/Time Associated Diagnosis Comme nts XR C-ARM 3.5-4 Routine 10/01/2021 2:11 PM Results for this HOURS SOFTWARE APPLICATIONS ARCHITECT procedure are i n the results section. documented in this encounter Results XR C-Arm 3.5-4 Hours (10/01/2021 2:11 PM SOFTWARE APPLICATIONS ARCHITECT) Anatomical Region Laterality Modality X-Ray Angiography Specimen (Source) Anatomical Location Collection Method / Collectio n Time Received Time / Laterality Volume Narrative 10/01/2021 2:12 PM SOFTWARE APPLICATIONS ARCHITECT Fluoroscopy provided by a medical lab technologist. Exact fluoroscopy time is documented in end of exam information in EPIC Delgado Gottlieb MD RAD GD documented in this encounter Visit Diagnoses Not on filedocumented in this encounter Care Teams Biological Sciences Professor Relationship Specialty Start Date End Date Cintia Cobb MD PCP - General Family Practice 09/30/21 documented as of this encounter
--- OUTSIDE RECORDS SUMMARY | 2022-08-05 10:32 | XMS_ITS | Encounter Summary ---
:1960 [facility] Address [address], [place] [address] Care Team Providers Name Role Phone Kevin Bullock MD Primary Care Provider [phone] Reason for Referral Therapies (Routine) - New Request Specialty Diagnoses / Procedures Referred By Contact Refer red To Contact Diagnoses Closed fracture of distal end of left femur, unspecified fracture morphology, initial encounter (HRC) Martha Gottlieb MD [address] [place] [address] Referral ID Status Reason Start Date Expiration Date Visits V isits Requested Authorized [id number] New Request 10/03/2021 10/03/2022 1 1 Scheduling Instructions Your provider has recommended an appoint ment with a [facility] Physical Therapist. Call [facility] Outpatient Rehabilitation at . We suggest you call your health insurance company about your coverage an d benefits for this appointment. KING GUIDE Consult/Transfer Care (Routine) - New Request Specialty Diagnoses / Procedures Referred By Contact Refer red To Contact Diagnoses Closed fracture of distal end of left femur, unspecified fracture morphology, initial encounter (HRC) Suzie Daigle PA-C [address] [place] [address] Referral ID Status Reason Start Date Expiration Date Visits V isits Requested Authorized [id number] New Request 10/02/2021 01/01/2023 1 1 Scheduling Instructions Your provider has recommended an appoint ment with [facility]. You may call to schedule your appointment. We suggest you call your health insurance company a bout your coverage and benefits for this appointment. KING GUIDE Procedure/Equipment (Routine) - Incomplete Specialty Diagnoses / Procedures Referred By Contact Refer red To Contact Procedures Suzie Daigle PA-C XR Femur Lt 2 Views [address] [place] [address] Referral ID Status Reason Start Date Expiration Date Visits V isits Requested Authorized [id number] Incomplete 10/01/2021 12/31/2022 1 1 KING GUIDE (Routine) - Incomplete Specialty Diagnoses / Procedures Referred By Contact Refer red To Contact Procedures Martha Gottlieb MD XR C-Arm 3.5-[address] [place], [place] [address] XR C-Arm 2.5-3 Hours [place], [place] [address] Referral ID Status Reason Start Date Expiration Date Visits V isits Requested Authorized [id number] Incomplete 10/01/2021 12/31/2022 1 1 KING GUIDE Procedure/Equipment (Routine) - Incomplete Specialty Diagnoses / Procedures Referred By Contact Refer red To Contact Diagnoses Closed fracture of distal end of left femur, unspecified fracture morphology, initial encounter (HRC) Jonah Nova MD Procedures Case Request OR - Orthopedic Surgery: OPEN REDUCTION INTERNAL FIXATION SUPRACONDYLAR DISTAL FEMUR FRACTURE, INSERTION INTRAMEDULLARY NAIL SUPRACONDYLAR DISTAL FEMUR FRACTURE [address] [place] [address] Referral ID Status Reason Start Date Expiration Date Visits V isits Requested Authorized [id number] Incomplete 09/30/2021 12/30/2022 1 1 KING GUIDE Procedure/Equipment (Routine) - Incomplete Specialty Diagnoses / Procedures Referred By Contact Refer red To Contact Procedures Francisca Harvey MD XR Femur Lt 2 Views Lower [address] [facility] AP/[place] [address] XR Femur Lt 2 Views Referral ID Status Reason Start Date Expiration Date Visits V isits Requested Authorized [id number] Incomplete 09/30/2021 12/30/2022 1 1 KING GUIDE Procedure/Equipment (Routine) - Incomplete Specialty Diagnoses / Procedures Referred By Contact Refer red To Contact Procedures Jonah Nova MD XR Knee Lt 2 Views [address] [place] [address] Referral ID Status Reason Start Date Expiration Date Visits V isits Requested Authorized [id number] Incomplete 09/30/2021 12/30/2022 1 1 KING GUIDE Procedure/Equipment (Routine) - Incomplete Specialty Diagnoses / Procedures Referred By Contact Refer red To Contact Procedures Jonah Nova MD XR Pelvis AP W AP/Lat Hip Lt [address] [place] [address] Referral ID Status Reason Start Date Expiration Date Visits V isits Requested Authorized [id number] Incomplete 09/30/2021 12/30/2022 1 1 KING GUIDE Reason for Visit Reason Comments FRACTURE Auth/Cert [...] Expiration Date Visits Requ ested Visits Authorized [id number] 1 1 Encounter Details Date Type Department Care Team Description 09/30/2021 - Hospital Encounter RH S9 Jonah Nova MD [address] [place] [address] Closed fracture of distal end of left fe mur, unspecified fracture morphology, initial encounter (HRC) (Primary Dx); 10/03/2021 [address] [facility] Josep Peck MD [address] [place] [address] Pain; [place], [place] Kay Mcadams, PA-C [address] [place] [address] Diabetes mellitus type II (HRC); [address] Martha Gottlieb MD [address] [place] [address] Diabetic peripheral neuropathy (HRC); [phone] Pain, lumbar re gion (HRC); Other chronic [...] Comments Blood Pressure 128/76 10/03/2021 1:54 PM TREKKING GUIDE Pulse 79 10/03/2021 1:54 PM TREKKING GUIDE Temperature 37 ??C (98.6 ??F) 10/03/2021 1:54 PM TREKKING GUIDE Respiratory Rate 18 10/03/2021 1:54 PM TREKKING GUIDE Oxygen Saturation 95% 10/03/2021 1:54 PM TREKKING GUIDE Inhaled Oxygen Concentration - - Weight 82.5 kg (181 lb 14.4 oz) 10/01/2021 2:00 AM TREKKING GUIDE Height 182.9 cm (6') 10/02/2021 12:00 AM TREKKING GUIDE Body Mass Index 24.67 10/01/2021 2:00 AM TREKKING GUIDE documented in this encounter Discharge Summaries Suzie Daigle PA-C - 10/02/2021 8:50 AM CST [facility] Orthopedic Discharge Note Patient Name: Noemí Luna [...] Date: 10/16/2021 Time: 10:20a Provider: Dr. Gottlieb [facility]: Orthopaedic & Sports Medicine; ( FAMILY OF CARE REFERRAL) [phone]; [address] [place] [address] References: Specialty Connection Sari Melendrez Consult Page Question: Reason for visit? Answer: s/p ORIF IMN L femur Discharge Practitioner Electronic Signature Comments: Suzie Daigle PA-C 10/02/2021 8:43 AM These orders have been electronically signed. (In accordance with [place] Fed. Regulation Set, Fed A0232 - Types of Authentication) Weight bearing as tolerated Comments: You may resume normal weight bearing on the affected limb(s) as tolerated. Discharge Diet (see comments) Comments: Diabetic Follow Up: The patient will follow up with Martha Gottlieb MD in 2 weeks. At follow up, xrays should include L femur. This note completed by: Suzie Daigle PA-C KING GUIDE documented in this encounter Discharge Instructions Discharge InstructionsAisha Workman RN - 10/03/2021 8:15 AM CST Clinic Phone Numbers ??? [facility]: [phone] ??? [facility]: [phone] Labs and Warfarin (Coumadin) Information No data found. This information has been sent to the following clinic:{[facility] FAX DESTINATION:[id number]} [facility] ??? Always wash your hands [...] density, or have had a fracture, call [phone] to schedule an appointment. KING GUIDE documented in this encounter Medications at Time [...] MG capsule daily. Sennosides (SENOKOT 0 OR) aspirin 325 MG [...] Musculoskeletal Pain oxyCODONE (ROXICODONE) Take 1-2 Tablets (5-10 25 Tablet 0 0 01/27/2022 08/04/2022 5 MG immediate release mg) by mouth every 4 tablet hours as needed for Pain. oxyCODONE (ROXICODONE) Take 1-2 Tablets by 5 Tablet 0 09/0810/16/2021 5 MG immediate release mouth every 4 hours as tablet needed for Pain. documented as of this encounter Progress Notes Edward Thompson MD - 10/03/2021 5:27 AM CST [facility] Orthopedic Surgery Progress Note Subjective: Patient [...] Edward Thompson MD Orthopedic Surgery, PGY-2 Pager: [phone] KING GUIDE Kay Mcadams PA-C - 10/02/2021 2:52 PM [...] Kay Mcadams PA-C Department of Hospital Medicine Nathen Vera MD - 10/02/2021 10:25 AM CST Brief [...] Will continue to monitor. Nathen Burger MD Nathen Vera MD - 10/02/2021 5:07 AM CST [facility] Orthopedic Surgery Progress Note Subjective: Last [...] 6.0 (LL) 09/30/2021 5.8 (LL) A/P: Ed J Luna is a 61 y.o. male with [...] evaluated the patient. Nathen Burger MD, PGY-1 [facility] Orthopedic Surgery Pager: [phone] 10/02/2021 5:07 AM KING GUIDE Anika Lazo RN - 10/01/2021 4:21 PM CST I completed a full assessment and assessments as ordered and per policy on this patient during my work shift. Reassessments completed during my work shift are unchanged unless documented. KING GUIDE Kay Mcadams PA-C - 10/01/2021 4:00 PM CST Brief HM Note Unable to see patient today as he has been in the OR. Recommend repeat Hgb and consideration of IV iron if pt agreeable. Medicine will f/u tomorrow. Kay Mcadams PA-C Department [facility] Medicine KING GUIDE Josep Cervantes MD - 10/01/2021 5:40 AM CST [facility] Orthopedic Surgery Progress Note Subjective: Patient [...] 5.8 (LL) Imaging: Complete A/P: Ed Jim Luna is a 61 [...] discharge to home in 2-4 days. F/U: BEE Cervantes MD, PGY-2 [facility] Orthopedic Surgery Pager: [phone] 10/01/2021 5:41 AM KING GUIDE documented in this encounter Procedure Notes Suzie Daigle PA-C - 10/01/2021 2:04 PM CST [facility] Brief Operative Progress Note Surgery Date: 10/01/2021 [...] left femur x-rays needed. Suzie Daigle PA-C KING GUIDE Martha Gottlieb MD - 10/01/2021 12:00 AM CST NAME: NOEMÍ LUNA [facility]: [id number] OPERATIVE REPORT DATE OF SURGERY: 10/01/2021 : [...] after the injury. He was brought to [facility] emergency department, where he was found to have a comminuted and displaced left supracondylar distal femur fracture. This was a closed injury, and he was neurovascularly intact. Of note, the patient had sustained an ipsilateral left intertrochanteric femur fracture in August of 2019for which he underwent short intramedullary nailing in [place], [place]. Prior to this most recent injury, the patient was ambulatory with a cane. 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 The IT band laterally was closed with #1 Vicryl [id number]-[id number] sutures. All skin incisions were then closed with 2-0 Vicryl buried deepdermal sutures and chapis. A sterile compressive dressing was then applied and finally the leg was wrapped in a double length 6-inch Carmita wrap. The patient was transferred back to his hospital bed, andthe Munoz catheter was removed. He was awoken from anesthesia without incident and taken [facility] room in stable condition. COMPLICATIONS: None. ESTIMATED [...] of the procedure. MARTHA GOTTLIEB MD RDW/AQS /[id number] KING GUIDE documented in this encounter Consult Notes Jaja Amor PA-C - 10/02/2021 10:40 AM CSTAssociated Order(s): ENDOCRINE CONSULT See consult note 10/01. Will continue to follow peripherally x24 hours. Glucose remains stable. Jaja Amor PA-C Endocrinology KING GUIDE Padmini Lima APRN, CNP - 10/01/2021 2:36 [...] you, Padmini Lima APRN, KORIN, Endocrinology nonbillable KING GUIDE Keyla Gilbert APRN, KORIN - 10/01/2021 7:20 AM CSTAssociated Order(s): OSTEOPOROSIS [...] a cane at baseline Works as a hazmat truck driver Additional Osteoporosis Risk Factors: Tobacco/Alcohol: No current [...] for the patient. Keyla Gilbert APRN, KORIN KING GUIDE Ted Burdick MD - 09/30/2021 9:29 PM CST [facility] Pre-operative Exam Patient Name: Noemí Luna Date of : 1960 Date of Service: 09/30/2021 Primary Practitioner: Kevin Vlaentin MD, Assessment and Plan: Noemí Luna is a 61 y.o. old male is undergoing a pre-operative medical evaluation. Pre-operative cardiac evaluation: This patient???s predictive cardiac risk is: 0.2 % Risk of myocardial infarction or cardiac arrest, intraoperatively or up to 30 days post-op per JACKSON. 3.9 % 30-day risk of , [place], or cardiac arrest per RCRI. Neither of [...] extensive explanations of risks of anemia pre-operatively ([place], , etc) and screening for infections of [...] Didn't lose consciousness. Didn't hit head. 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 Worried that he will lose everything if [...] surgery on 10/01/[address] Peck at [facility]. Pre-operative Screening Questions: Tightening or pressure [...] Procedure: ESOPHAGOGASTRODUODENOSCOPY; Surgeon: Rene Carlson M.D.; Location: [facility] GI LAB?? Medical devices from this surgery are in the Medical Devices section.?? CARDIAC PACEMAKER PLACEMENT ? OPEN REDUCTION INTERNAL FIXATION FEMUR 08/13/2019 Hip/Left Procedure: OPEN REDUCTION INTERNAL FIXATION LEFT FEMUR; Surgeon: John Norman M.D.; Location: [facility] OR?? Medical devices from this surgery [...] OMEPRAZOLE 20MG CAP 08/20/2021 30 30 Each KEVIN KILGOREling Cmunity/Speci... TAMSULOSIN 0.4MG CAP 08/20/2021 30 60 Each CARISSA VALENTIN,KEVIN Piper Juan Cmunity/Speci... FINASTERIDE 5MG TAB 08/14/2021 13 13 Each CIARRA KILGOREN Juan Cmunity/Speci... HYDROCODON-APAP 5-325 07/27/2021 2 8 Each CHUNG GARAZ Juan Cmunity/Speci... ALLOPURINOL 300 MG TABS 07/19/2021 30 30 Each MAGUI,KEVIN Feliz Juan Cmunity/Speci... FUROSEMIDE 40 MG TABLET 07/19/2021 30 30 Each MAGUI,KEVIN Piper Juan Cmunity/Speci... TAMSULOSIN 0.4MG CAP 07/19/2021 30 60 Each KEVIN BULLOCK Juan Cmunity/Speci... TRAZODONE HCL 50 MG TABS 07/15/2021 30 60 Each MAGUI,KEVIN Feliz Juan Cmunity/Speci... Allergies Allergies Allergen Reactions ??? [...] conditions: No # Acute coronary syndrome # MO < one month ago # decompensated heart [...] CC: consult --- End of Report --- KING GUIDE Martha Gottlieb MD - 09/30/2021 6:15 PM [...] obstruction who presentsas a transfer from the [place] ED with left distal thigh pain after [...] femur fracture by Dr. John Norman in [place], [place]. Location: Left distal thigh Time of Onset: today Severity: 8/10 Quality: sharp Radiation: none Exacerbating: movement, WB Alleviating: rest Associated symptoms: none Patient has been NPO since 1999 on 09/29/21. Patient lives with his and dog. Patient ambulates with a cane. 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 If there is no reply, if it is a weekend, or if it is after hours, then please page the orthopedic surgery service pager at [phone] Attestation: I saw and evaluated this patient and we have discussed the plan of care with the resident. I have personally reviewed the patient's imaging and laboratory data. I agree with the findings as detailed inthe resident's note. Martha Gottlieb MD Paranormal Investigator [facility] Department of Orthopaedic Surgery [facility] KING GUIDE documented in this encounter ED Notes Jonah Nova MD - 09/30/2021 6:14 PM CST [facility] Emergency Department Attending Supervision Note Pt [...] and screen Admit Author: Jonah Nova MD KING GUIDE Francisca Harvey MD - 09/30/2021 5:45 PM CST [facility] Emergency Medicine Visit Note Chief Complaint: [...] his knee and was brought to the [place] ED for evaluation. There, was found to [...] and left knee imaging as images from [facility] of the left knee are not available. [...] femur, unspecified fracture morphology, initial encounter (HRC) KING GUIDE Juan Miguel Rios MD - 09/30/2021 4:01 PM CST Referred from [facility] by MD for L femur fx. Background/plan: Slipped and fell this morning. L distal femur fx. CMS intact. No other hinjury. Noton anticoag. VSS Covid negative. Needs ortho Means of arrival: EMS Call back: none KING GUIDE documented in this encounter Plan of Treatment Upcoming Encounters Date Type Specialty Care Team Description 09/15/2022 Appointment Orthopedics Martha Gottlieb MD [address] [place], [place] [address] (Gavi presley) 10/08/2022 Appointment Orthopedics Martha Gottlieb MD [address] [place], [place] [address] (Gavi presley) 05/27/2023 Appointment Chemo Therapy/Infusion Services Pending Results Name Type Priority Associated Diagnoses Date/Ti me Transfuse RBC Nursing Transfusion Routine 022 3:23 AM TREKKING GUIDE Scheduled Referrals Name Type Priority Associated Diagnoses [...] 10/02/2021 10:21 Resu lts for this AM TREKKING GUIDE procedure are i n the results section. VITAMIN D 25-HYDROXY, Routine 10/02/2021 8:22 Res ults for this TOTAL AM TREKKING GUIDE procedure are i n the results section. INTACT PTH Routine 10/02/2021 8:22 Results for this AM TREKKING GUIDE procedure are i n the results section. COMP METABOLIC PANEL Routine 10/02/2021 8:22 Resu lts for this AM TREKKING GUIDE procedure are i n the results section. TSH, SENSITIVE Routine 10/02/2021 8:22 Results fo r this AM TREKKING GUIDE procedure are i n the results section. COMPLETE BLOOD COUNT-NO Routine 10/02/2021 8:22 R esults for this DIFF AM TREKKING GUIDE procedure are i n the results section. GLUCOSE, WHOLE BLOOD POCT Routine 10/01/2021 3:00 Results for this PM TREKKING GUIDE procedure are i n the results section. XR C-ARM 3.5-4 HOURS Routine 10/01/2021 2:11 Resu lts for this PM TREKKING GUIDE procedure are i n the results section. HEMOGLOBIN, MEASURED POCT Routine 10/01/2021 10:52 Results for this AM TREKKING GUIDE procedure are i n the results section. GLUCOSE, WHOLE BLOOD POCT Routine 10/01/2021 10:48 Results for this AM TREKKING GUIDE procedure are i n the results section. INSERTION INTRAMEDULLARY 10/01/2021 9:59 Closed fractu re of NAIL FEMUR AM TREKKING GUIDE distal end of left femur, unspecified fracture morphology, initial encounter (HRC) OPEN REDUCTION INTERNAL 10/01/2021 9:59 Closed fractur e of FIXATION DISTAL FEMUR AM TREKKING GUIDE distal end of left FRACTURE femur, unspecified fracture morphology, initial encounter (HRC) GLUCOSE, WHOLE BLOOD POCT Routine 10/01/2021 9:16 Results for this AM TREKKING GUIDE procedure are i n the results section. ECG 12-LEAD ROUTINE(LAB Routine 10/01/2021 6:20 R esults for this PERFORM) AM TREKKING GUIDE procedure are i n the results section. [id number] ELECTROCARDIOGRAM STAT 10/01/2021 6:14 R esults for this TRACING AM TREKKING GUIDE procedure are i n the results section. IV INSERTION(LAB TO STAT 10/01/2021 2:34 Resul ts for this PERFORM) AM TREKKING GUIDE procedure are i n the results section. PREP RBC LR Routine 09/30/2021 11:01 Results for this PM TREKKING GUIDE procedure are i n the results section. XR PELVIS AP W AP/LAT HIP STAT 09/30/2021 7:32 Results for this LT PM TREKKING GUIDE procedure are i n the results section. XR FEMUR LT 2 VIEWS LOWER STAT 09/30/2021 7:32 Results for this AP/LAT PM TREKKING GUIDE procedure are i n the results section. XR KNEE LT 2 VIEWS STAT 09/30/2021 7:32 Result s for this PM TREKKING GUIDE procedure are i n the results section. CBC AND DIFFERENTIAL Routine 09/30/2021 7:02 Resu lts for this PANEL PM TREKKING GUIDE procedure are i n the results section. BT SECOND DRAW Routine 09/30/2021 7:02 Results fo r this PM TREKKING GUIDE procedure are i n the results section. COMPLETE BLOOD Routine 09/30/2021 7:02 Results fo r this COUNT-W/DIFF PM TREKKING GUIDE procedure are i n the results section. BASIC METABOLIC PANEL Routine 09/30/2021 7:02 Res ults for this PM TREKKING GUIDE procedure are i n the results section. DIFFERENTIAL Routine 09/30/2021 7:02 Results for this PM TREKKING GUIDE procedure are i n the results section. FERRITIN Add-On 09/30/2021 7:02 Results for this PM TREKKING GUIDE procedure are i n the results section. IRON PROFILE Add-On 09/30/2021 7:02 Results for this (IRON,TIBC,%SAT.(CALC)) PM TREKKING GUIDE proc edure are in the results section. TYPE AND SCREEN STAT 09/30/2021 6:27 Results f or this PM TREKKING GUIDE procedure are i n the results section. ANTIBODY SCREEN STAT 09/30/2021 6:27 Results f or this PM TREKKING GUIDE procedure are i n the results section. BLOOD TYPE STAT 09/30/2021 6:27 Results for this PM TREKKING GUIDE procedure are i n the results section. PATH REVIEW (LAB USE Routine 09/30/2021 6:27 Resu lts for this ONLY) PM TREKKING GUIDE procedure are i n the results section. APTT (ACTIVATED PARTIAL Routine 09/30/2021 6:27 R esults for this THROMBOPLASTIN TIME PM TREKKING GUIDE procedur e are in the results section. HEMOGLOBIN, BLOOD STAT 09/30/2021 6:27 Results for this PM TREKKING GUIDE procedure are i n the results section. INR/PROTIME Routine 09/30/2021 6:27 Results for this PM TREKKING GUIDE procedure are i n the results section. documented in this encounter Results XR Femur Lt 2 Views (10/02/2021 10:21 AM TREKKING GUIDE) Anatomical Region Laterality Modality Lower Extremity, Leg, Thigh Computed Rad iography Specimen (Source) Anatomical Collection Method Collection Time Re ceived Time Location / / Volume Laterality 10/02/2021 10:21 AM TREKKING GUIDE Narrative 10/02/2021 10:37 AM TREKKING GUIDE EXAM: XR FEMUR LT 2 VIEWS LOCATION: [...] D 25 HYDROXY, TOTAL (10/02/2021 8:22 AM TREKKING GUIDE) Patholo gist Method Time Signature Vitamin D, 58 30 - 80 10/02/2021 [facility] 25-OH, Total ng/mL 12:54 PM TREKKING GUIDE CENTRAL LAB Specimen Anatomical Collection Method / Collection Time Recei shahid Time (Source) Location / Volume Laterality Blood Venipuncture 10/02/2021 8:22 10/02/2021 8 :32 Butterfly / Unknown AM TREKKING GUIDE AM TREKKING GUIDE Keyla Gilbert APRN, CNP LAB_1 Performing Organization Address City/[facility]/ZIP Code Phon e Number [facility] CENTRAL LAB [address] [address] TSH (10/02/2021 8:22 AM TREKKING GUIDE) athologist Signature TSH, Sensitive 0.31 0.30 - 10/02/2021 [facility] 4.50 9:37 AM [facility] uIU/mL Specimen Anatomical Collection Method / Collection Time Recei shahdi Time (Source) Location / Volume Laterality Blood Venipuncture 10/02/2021 8:22 10/02/2021 8 :33 Butterfly / Unknown AM TREKKING GUIDE AM TREKKING GUIDE Keyla Gilbert APRN, CNP LAB_1 Performing Organization Address City/[facility]/ZIP Code Phon e Number [address] [address] (ABNORMAL) Comp Metabolic Panel (10/02/2021 8:22 AM TREKKING GUIDE) Analysis Performed At Patho logist Time Signature Sodium 137 136 - 145 10/02/2021 [facility] mmol/L 9:19 AM [facility] Potassium 4.2 3.5 - 5.1 10/02/2021 [facility] mmol/L 9:19 AM [facility] Chloride 108 98 - 109 10/02/2021 [facility] mmol/L 9:19 AM [facility] CO2 23 20 - 29 10/02/2021 [facility] mmol/L 9:19 AM [facility] Anion Gap 6 (L) 7 - 16 10/02/2021 [facility] mmol/L 9:19 AM [facility] Calcium 8.4 8.4 - 10.4 10/02/2021 [facility] mg/dL 9:19 AM [facility] BUN 30 (H) 7 - 26 10/02/2021 [facility] mg/dL 9:19 AM [facility] Creatinine 0.96 0.73 - 10/02/2021 [facility] 1.18 mg/dL 9:19 AM [facility] GFR, Estimated >60 >60 10/02/2021 [facility] mL/min/1.7 9:19 AM [facility] 3m2 Alkaline 42 40 - 150 10/02/2021 [facility] Phosphatase U/L 9:19 AM [facility] AST (SGOT) 12 10 - 40 10/02/2021 [facility] U/L 9:19 AM [facility] ALT (SGPT) 13 0 - 55 U/L 10/02/2021 [facility] 9:19 AM [facility] Bilirubin, Total 0.2 0.2 - 1.2 10/02/2021 [facility] mg/dL 9:19 AM [facility] Protein, Total 5.5 (L) 6.4 - 8.3 10/02/2021 [facility] g/dL 9:19 AM [facility] Albumin 3.1 (L) 3.5 - 5.0 10/02/2021 [facility] g/dL 9:19 AM [facility] Glucose 116 (H) 70 - 100 10/02/2021 [facility] mg/dL 9:19 AM [facility] Comment: The given reference range is fo r the fasting state. Non-fasting reference range for glucose is 70 - 180 mg/dL. Specimen Anatomical Collection Method / Collection Time Recei shahid Time (Source) Location / Volume Laterality Blood Venipuncture 10/02/2021 8:22 10/02/2021 8 :33 Butterfly / Unknown AM TREKKING GUIDE AM TREKKING GUIDE Keyla Gilbert CORK MIXER, CAR PUSHER LAB_1 Performing Organization Address City/State/ZIP Code Phon e Number [address] [address] (ABNORMAL) Complete Blood Count-No Diff (10/02/2021 8:22 AM TREKKING GUIDE) Analysis Performed At Patho logist Time Signature WBC 7.5 3.5 - 10.5 10/02/2021 [facility] x10(9)/L 9:19 AM [facility] RBC 2.41 (L) 4.32 - 10/02/2021 [facility] 5.72 9:19 AM [facility] x10(12)/L Hemoglobin 5.6 (LL) 13.5 - 10/02/2021 [facility] 17.5 g/dL 9:19 AM [facility] HCT 19.3 (L) 38.8 - 10/02/2021 [facility] 50.0 % 9:19 AM [facility] MCV 80.1 80.0 - 10/02/2021 [facility] 100.0 fL 9:19 AM [facility] MCH 23.2 (L) 27.6 - 10/02/2021 [facility] 33.3 pg 9:19 AM [facility] MCHC 29.0 (L) 31.5 - 10/02/2021 [facility] 35.2 g/dL 9:19 AM [facility] RDW 17.2 (H) 11.9 - 10/02/2021 [facility] 15.5 % 9:19 AM [facility] Platelets 130 (L) 150 - 450 10/02/2021 [facility] x10(9)/L 9:19 AM [facility] Automated NRBC 0 <=0 /100 10/02/2021 [facility] WBC 9:19 AM [facility] Specimen Anatomical Collection Method / Collection Time Recei shahid Time (Source) Location / Volume Laterality Blood Venipuncture 10/02/2021 8:22 10/02/2021 8 :33 Butterfly / Unknown AM TREKKING GUIDE AM TREKKING GUIDE Keyla Gilbert APRN, KORIN LAB_1 Performing Organization Address City/State/ZIP Code Phon e Number [address] [address] Intact PTH (10/02/2021 8:22 AM TREKKING GUIDE) P athologist Signature Intact PTH 96 10 - 100 10/02/2021 [facility] pg/mL 9:37 AM [facility] Specimen Anatomical Collection Method / Collection Time Recei shahid Time (Source) Location / Volume Laterality Blood Venipuncture 10/02/2021 8:22 10/02/2021 8 :33 Butterfly / Unknown AM TREKKING GUIDE AM TREKKING GUIDE Keyla Gilbert APRN, CNP LAB_1 Performing Organization Address [facility] Phon e Number [address] [address] Glucose, Whole Blood POCT (10/01/2021 3:00 PM TREKKING GUIDE) Patholo gist Method Time Signature Glucose, Whole 166 70 - 180 10/01/2021 [facility] Blood mg/dL 3:01 PM [facility] POCT Comment 1 MD Notified 10/01/2021 [facility] 3:01 PM [facility] Performing RCLAB PACU 10/01/2021 [facility] Location 3:01 PM [facility] Specimen Anatomical Collection Method Collection Time Receive d Time (Source) Location / / Volume Laterality Blood 10/01/2021 3:00 PM 3:01 TREKKING GUIDE PM TREKKING GUIDE Martha Gottlieb MD LAB_1 Performing Organization Address [facility] Phon e Number [address] [address] XR C-Arm 3.5-4 Hours (10/01/2021 2:11 PM TREKKING GUIDE) Anatomical Region Laterality Modality X-Ray Angiography Specimen (Source) Anatomical Location Collection Method / Collectio n Time Received Time / Laterality Volume Narrative 10/01/2021 2:12 PM TREKKING GUIDE Fluoroscopy provided by a anesthesiology technologist. Exact fluoroscopy time is documented in end of exam information in EPIC Martha Gottlieb MD RAD GD (ABNORMAL) Hemoglobin, Measured POCT (10/01/2021 10:52 AM TREKKING GUIDE) Analysis Performed At Patho logist Time Signature Hemoglobin 8.5 (L) 13.5 - 10/03/2021 [facility] 17.5 g/dL 7:17 AM [facility] Performing RCLAB OR 10/03/2021 [facility] Location 7:17 AM [facility] Specimen Anatomical Collection Method Collection Time Receive d Time (Source) Location / / Volume Laterality Blood 10/01/2021 10:52 10/03/2021 7:17 AM TREKKING GUIDE AM TREKKING GUIDE Martha Gottlieb MD LAB_1 Performing Organization Address City/[facility]/ZIP Code Phon e Number [address] [address] Glucose, Whole Blood POCT (10/01/2021 10:48 AM TREKKING GUIDE) [facility] Method Time Signature Glucose, Whole 103 70 - 180 10/01/2021 [facility] Blood mg/dL 10:50 AM [facility] POCT Comment 1 No Action 10/01/2021 [facility] Required 10:50 AM [facility] Performing RCLAB OR 10/01/2021 [facility] Location 10:50 AM [facility] Specimen Anatomical Collection Method Collection Time Receive d Time (Source) Location / / Volume Laterality Blood 10/01/2021 10:48 10/01/2021 AM TREKKING GUIDE 10:50 AM TREKKING GUIDE Martha Gottlieb MD LAB_1 Performing Organization Address [facility]/ZIP Code Phon e Number [address] [address] Glucose, Whole Blood POCT (10/01/2021 9:16 AM TREKKING GUIDE) [facility] Method Time Signature Glucose, Whole 106 70 - 180 10/01/2021 [facility] Blood mg/dL 9:17 AM [facility] Performing RCLAB SDS 10/01/2021 [facility] Location 9:17 AM [facility] Specimen Anatomical Collection Method Collection Time Receive d Time (Source) Location / / Volume Laterality Blood 10/01/2021 9:16 AM 9:17 TREKKING GUIDE AM TREKKING GUIDE Martha Gottlieb MD LAB_1 Performing Organization Address [facility]/ZIP Code Phon e Number [address] [address] Transfuse RBC (10/01/2021 8:38 AM TREKKING GUIDE) Josep Peck MD ET NURSING BLOOD ADMIN ECG 12-Lead Routine (Lab perform) (10/01/2021 6:20 AM TREKKING GUIDE) athologist Signature EKG Completed 10/01/2021 [facility] 11:02 AM [facility] Specimen Anatomical Collection Method Collection Time Receive d Time (Source) Location / / Volume Laterality Other Specimen Non-blood 10/01/2021 6:20 AM 022 9:57 Type Collection / TREKKING GUIDE AM TREKKING GUIDE Unknown Óscar Lindsay Mendez BROWNE LAB_1 Performing Organization Address [facility]/ZIP [facility] Phon e Number [address] [address] Ecg 12-Lead Routine (MUSE) (10/01/2021 6:14 AM TREKKING GUIDE) P athologist Signature Ventricular Rate 64 BPM MUSE GHP Atrial Rate 64 BPM MUSE [facility]HP P-R Interval 448 ms MUSE GHP QRS Duration 176 ms MUSE GHP QT 466 ms MUSE GHP QTc 480 ms MUSE GHP R [place] -89 degrees MUSE GHP T [place] 68 degrees MUSE GHP Specimen (Source) Anatomical Collection Method Collection Time Re ceived Time Location / / Volume Laterality 10/01/2021 6:14 AM TREKKING GUIDE Narrative MUSE GHP - 10/01/2021 2:40 PM TREKKING GUIDE Atrial-sensed ventricular-paced rhythm with prolonged AV conduction Abnormal ECG No previous ECGs available Confirmed by Pancho Dangelo ([id number]) on 10/01/19 2:40:30 PM Procedure Note Pancho Dangelo MD - 10/01/2021 Atrial-sensed ventricular-paced rhythm w ith prolonged AV conduction Abnormal ECG No previous ECGs available Confirmed by Pancho Dangelo ([id number]) on 10/01/19 2:40:30 PM Óscar Simms DO EKG Performing Organization Address [facility] Phon e Number MUSE GHP [address] [place] [address] IV Insertion, LST Perform (10/01/2021 2:34 AM TREKKING GUIDE) athologist Signature IV INSERTION, Done 10/01/2021 [facility] LST PERFORM 5:03 AM [facility] (LAB) Specimen Anatomical Collection Method / Collection Time Recei shahid Time (Source) Location / Volume Laterality Other Specimen Venipuncture 10/01/2021 2:34 10/01/2021 3:20 Type Butterfly / Unknown AM TREKKING GUIDE AM TREKKING GUIDE Josep Peck MD LAB_1 Performing Organization Address [facility]/ZIP [facility] Phon e Number [address] [address] Prep RBC: , 2 Units (09/30/2021 11:01 PM TREKKING GUIDE) Component Value Ref Test Analysis Performed At [facility] gist Range Method Time Signature BLOOD PRODUCT [id number] [facility] CODE BLOOD BANK BLOOD UNIT NUMBER [id number] [facility] S BLOOD [facility] CROSSMATCH Compatible [facility] INTERPRETATION BLOOD BANK BLOOD DISPENSE Transfused [facility] STATUS BLOOD B[facility] Unit Expiration [facility] Date BLOOD BANK UNIT BT BARCODE 6200 [facility] PRODUCT VOL ML 400 [facility] CODING SYSTEM ISBT [facility] PRODUCT RBC LR [facility] BLOOD PRODUCT [id number] [facility] CODE BLOOD BANK BLOOD UNIT NUMBER [id number] [facility] B[facility] CROSSMATCH Compatible [facility] [...] / Volume Laterality Blood 09/30/2021 11:01 PM TREKKING GUIDE Josep Peck MD LAB_BLOOD PRODUCTS Performing Organization Address City/State/ZIP Code Phon e Number [facility] [address] [place] [address] XR Femur Lt 2 Views Lower AP/Lat (09/30/2021 7:32 PM TREKKING GUIDE) Anatomical Region Laterality Modality Lower Extremity, Leg, Thigh Computed Rad iography Specimen (Source) Anatomical Collection Method Collection Time Re ceived Time Location / / Volume Laterality 09/30/2021 7:32 PM TREKKING GUIDE Narrative 09/30/2021 7:41 PM TREKKING GUIDE EXAM: XR FEMUR LT 2 VIEWS LOWER [...] Knee Lt 2 Views (09/30/2021 7:32 PM TREKKING GUIDE) Anatomical Region Laterality Modality Lower Extremity, Knee Computed Radiograp hy Specimen (Source) Anatomical Collection Method Collection Time Re ceived Time Location / / Volume Laterality 09/30/2021 7:32 PM TREKKING GUIDE Narrative 09/30/2021 7:38 PM TREKKING GUIDE EXAM: XR KNEE LT 2 VIEWS LOCATION: [...] W AP/Lat Hip Lt (09/30/2021 7:32 PM TREKKING GUIDE) Anatomical Region Laterality Modality Pelvis, Hip Computed Radiography Specimen (Source) Anatomical Collection Method Collection Time Re ceived Time Location / / Volume Laterality 09/30/2021 7:32 PM TREKKING GUIDE Narrative 09/30/2021 7:41 PM TREKKING GUIDE EXAM: XR PELVIS AP W AP/LAT HIP [...] PELVIS AP W AP/LAT HIP LT LOCATION: [facility] DATE/TIME: 09/30/2021 7:32 PM INDICATION: Left [...] RAD GD (ABNORMAL) Ferritin (09/30/2021 7:02 PM TREKKING GUIDE) athologist Signature Ferritin 13 (L) 22 - 275 09/30/2021 [facility] ng/mL 10:48 PM [facility] Specimen Anatomical Collection Method / Collection Time Recei shahid Time (Source) Location / Volume Laterality Blood Venipuncture / 09/30/2021 7:02 09/30/2021 7:07 Unknown PM TREKKING GUIDE PM TREKKING GUIDE Ted Burdick MD LAB_1 Performing Organization Address City/State/ZIP Code Phon e Number [address] [address] (ABNORMAL) Iron Profile (Iron,TIBC,%Sat.(Calc)) (09/30/2021 7:02 PM TREKKING GUIDE) [facility] Method Time Signature Iron 14 (L) 65 - 175 09/30/2021 [facility] mcg/dL 10:41 PM HOSPITAL TREKKING GUIDE Transferrin 324 174 - 364 09/30/2021 [facility] mg/dL 10:41 PM [facility] TREKKING GUIDE TIBC, Calculated 405 240 - 450 09/30/2021 [facility] mcg/dL 10:41 PM HOSPITAL TREKKING GUIDE % Saturation, 3 (L) 10 - 50 % 09/30/2021 [facility] Calculated 10:41 PM HOSPITAL TREKKING GUIDE TIBC Low iron, 09/30/2021 [facility] Interpretation normal TIBC, 10:41 PM HOSPITAL possible TREKKING GUIDE iron deficiency. Specimen Anatomical Collection Method / Collection Time Recei shahid Time (Source) Location / Volume Laterality Blood Venipuncture / 09/30/2021 7:02 09/30/2021 7:07 Unknown PM TREKKING GUIDE PM TREKKING GUIDE Ted Burdick MD LAB_1 Performing Organization Address [facility] Phon e Number [address] [address] (ABNORMAL) Differential (09/30/2021 7:02 PM TREKKING GUIDE) [facility] Method Time Signature Polychromasia Slight (A) None Seen 09/30/2021 [facility] 7:42 PM [facility] RBC Morphology Reviewed 09/30/2021 [facility] 7:42 PM [facility] Platelet Estimate Adequate Adequate 09/30/2021 [facility] 7:42 PM [facility] Neutrophil 7.1 (H) 1.7 - 7.0 09/30/2021 [facility] Absolute 10(9)/L 7:42 PM [facility] Lymphocyte 0.5 (L) 1.0 - 4.8 09/30/2021 [facility] Absolute 10(9)/L 7:42 PM [facility] Monocytes 0.3 0.2 - 0.9 09/30/2021 [facility] Absolute 10(9)/L 7:42 PM [facility] Eosinophil 0.0 0.0 - 0.5 09/30/2021 [facility] Absolute 10(9)/L 7:42 PM [facility] Basophil Absolute 0.1 0.0 - 0.3 09/30/2021 [facility] 10(9)/L 7:42 PM [facility] Specimen Anatomical Collection Method / Collection Time Recei shahid Time (Source) Location / Volume Laterality Blood Venipuncture / 09/30/2021 7:02 09/30/2021 7:07 Unknown PM TREKKING GUIDE PM TREKKING GUIDE Jonah Nova MD LAB_1 Performing Organization Address [facility] Phon e Number [address] [address] Blood Type second draw (09/30/2021 7:02 PM TREKKING GUIDE) P athologist Signature ABO A 09/30/2021 [facility] BLOOD 7:42 PM [facility]IDE BANK RH Positive 09/30/2021 [facility] BLOOD 7:42 PM [facility]KK[facility] GUIDE BANK Specimen Anatomical Collection Method / Collection Time Recei shahid Time (Source) Location / Volume Laterality Blood Venipuncture / 09/30/2021 7:02 09/30/2021 7:07 Unknown PM TREKKING GUIDE PM TREKKING GUIDE Eugenia Gupta MD LAB_1 Performing Organization Address City/State/ZIP Code Phon e Number [facility] [address] [place] [address] (ABNORMAL) Complete Blood Count-W/Diff (09/30/2021 7:02 PM TREKKING GUIDE) Analysis Performed At Patho logist Time Signature WBC 8.0 3.5 - 10.5 09/30/2021 [facility] x10(9)/L 7:42 PM [facility] RBC 2.68 (L) 4.32 - 09/30/2021 [facility] 5.72 7:42 PM [facility] x10(12)/L Hemoglobin 6.0 (LL) 13.5 - 09/30/2021 [facility] 17.5 g/dL 7:42 PM [facility] HCT 20.8 (L) 38.8 - 09/30/2021 [facility] 50.0 % 7:42 PM [facility] MCV 77.6 (L) 80.0 - 09/30/2021 [facility] 100.0 fL 7:42 PM [facility] MCH 22.4 (L) 27.6 - 09/30/2021 [facility] 33.3 pg 7:42 PM [facility] MCHC 28.8 (L) 31.5 - 09/30/2021 [facility] 35.2 g/dL 7:42 PM [facility] RDW 17.5 (H) 11.9 - 09/30/2021 [facility] 15.5 % 7:42 PM [facility] Platelets 151 150 - 450 09/30/2021 [facility] x10(9)/L 7:42 PM [facility] Automated NRBC 0 <=0 /100 09/30/2021 [facility] WBC 7:42 PM [facility] Specimen Anatomical Collection Method / Collection Time Recei shahid Time (Source) Location / Volume Laterality Blood Venipuncture / 09/30/2021 7:02 09/30/2021 7:07 Unknown PM TREKKING GUIDE PM TREKKING GUIDE Jonah Nova MD LAB_1 Performing Organization Address [facility]/ZIP [facility] Phon e Number [address] [address] (ABNORMAL) Basic Metabolic Panel (09/30/2021 7:02 PM TREKKING GUIDE) P athologist Signature Sodium 136 136 - 145 09/30/2021 [facility] mmol/L 7:46 PM [facility] Potassium 4.0 3.5 - 5.1 09/30/2021 [facility] mmol/L 7:46 PM [facility] Chloride 104 98 - 109 09/30/2021 [facility] mmol/L 7:46 PM [facility] CO2 24 20 - 29 09/30/2021 [facility] mmol/L 7:46 PM [facility] Anion Gap 8 7 - 16 09/30/2021 [facility] mmol/L 7:46 PM [facility] Calcium 8.4 8.4 - 10.4 09/30/2021 [facility] mg/dL 7:46 PM [facility] BUN 26 7 - 26 09/30/2021 [facility] mg/dL 7:46 PM [facility] Creatinine 0.78 0.73 - 09/30/2021 [facility] 1.18 mg/dL 7:46 PM [facility] GFR, Estimated >60 >60 09/30/2021 [facility] mL/min/1.7 7:46 PM [facility] 3m2 Glucose 152 (H) 70 - 100 09/30/2021 [facility] mg/dL 7:46 PM [facility] Comment: The given reference range is fo r the fasting state. Non-fasting reference range for glucose is 70 - 180 mg/dL. Specimen Anatomical Collection Method / Collection Time Recei shahid Time (Source) Location / Volume Laterality Blood Venipuncture / 09/30/2021 7:02 09/30/2021 7:07 Unknown PM TREKKING GUIDE PM TREKKING GUIDE Jonah Nova MD LAB_1 Performing Organization Address [facility] Phon e Number [address] [address] Blood Smear Review (Lab Use Only) (09/30/2021 6:27 PM TREKKING GUIDE) Patholo gist Method Time Signature Path Review Special heme 10/01/2021 [facility] tech 11:24 AM [facility] performed slide review Path Review Hgb low 10/01/2021 [facility] Reason 11:24 AM [facility] Specimen Anatomical Collection Method / Collection Time Recei shahid Time (Source) Location / Volume Laterality Blood Venipuncture / 09/30/2021 6:27 09/30/2021 6:47 Unknown PM TREKKING GUIDE PM TREKKING GUIDE Jonah Nova MD LAB_1 Performing Organization Address [facility]/ZIP [facility] Phon e Number [address] [address] (ABNORMAL) Hemoglobin, Blood (09/30/2021 6:27 PM TREKKING GUIDE) athologist Signature Hemoglobin 5.8 (LL) 13.5 - 17.5 09/30/2021 [facility] g/dL 7:12 PM [facility] Specimen Anatomical Collection Method / Collection Time Recei shahid Time (Source) Location / Volume Laterality Blood Venipuncture / 09/30/2021 6:27 09/30/2021 6:47 Unknown PM TREKKING GUIDE PM TREKKING GUIDE Jonah Nova MD LAB_1 Performing Organization Address [facility] Phon e Number [address] [address] INR/Protime (09/30/2021 6:27 PM TREKKING GUIDE) athologist Signature Protime 13.6 11.8 - 14.6 09/30/2021 [facility] Seconds 7:03 PM [facility] INR 1.1 0.9 - 1.1 09/30/2021 [facility] 7:03 PM [facility] Specimen Anatomical Collection Method / Collection Time Recei shahid Time (Source) Location / Volume Laterality Blood Venipuncture / 09/30/2021 6:27 09/30/2021 6:47 Unknown PM TREKKING GUIDE PM TREKKING GUIDE [facility] - 09/30/2021 7:03 PM CS T Therapeutic range determined by protocol established by anticoagulation provider. Jonah Nova MD LAB_1 Performing Organization Address [facility] Phon e Number [address] [address] APTT (Activated Partial Thromboplastin Time) (09/30/2021 6:27 PM TREKKING GUIDE) P athologist Signature APTT 31.7 22.5 - 36.5 09/30/2021 [facility] Seconds 7:03 PM [facility] Specimen Anatomical Collection Method / Collection Time Recei shahid Time (Source) Location / Volume Laterality Blood Venipuncture / 09/30/2021 6:27 09/30/2021 6:47 Unknown PM TREKKING GUIDE PM TREKKING GUIDE Jonah Nova MD LAB_1 Performing Organization Address [facility] Phon e Number [address] [address] Antibody Screen (09/30/2021 6:27 PM TREKKING GUIDE) [facility] gist Method Time Signature Antibody Screen Negative 09/30/2021 [facility] BLOOD Interpretation 7:35 PM [facility]IDE BANK Specimen Anatomical Collection Method / Collection Time Recei shahid Time (Source) Location / Volume Laterality Blood Venipuncture / 09/30/2021 6:27 09/30/2021 6:46 Unknown PM TREKKING GUIDE PM TREKKING GUIDE Jonah Nova MD LAB_1 Performing Organization Address [facility] Phon e Number [facility] [address] [place] [address] Blood Type (09/30/2021 6:27 PM TREKKING GUIDE) P athologist Signature ABO A 09/30/2021 [facility] BLOOD 7:23 PM [facility] BANK RH Positive 09/30/2021 [facility] BLOOD 7:23 PM [facility]IDE BANK Specimen Anatomical Collection Method / Collection Time Recei shahid Time (Source) Location / Volume Laterality Blood Venipuncture / 09/30/2021 6:27 09/30/2021 6:46 Unknown PM TREKKING GUIDE PM TREKKING GUIDE Jonah Nova MD LAB_1 Performing Organization Address [facility] Phon e Number [facility] [address] [place] [address] documented in this encounter Visit Diagnoses Diagnosis [...] not set up. Will try again later KING GUIDE Plan of Care - Brenda Bar RN - 10/03/2021 3:24 PM CST [facility] Discharge Note - Nursing Admission Date/Time: 09/30/2021 5:33 PM Attending MD: Martha Gottlieb MD Patient discharged: to Home. Discharge Date: 10/03/2021 Discharge Time: 3:24 PM Patient accompanied by: self and ocean transportation intermediary ([employer]). Transported by: Wheelchair Valuables were taken [...] stored: Yes --- End of Report --- KING GUIDE Plan of Care - Afshan Guajardo RN - 10/03/2021 3:09 PM CST I completed a full assessment and assessments as ordered and per policy on this patient during my work shift. Reassessments completed during my work shift are unchanged unless documented. 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 Solutions Delivery Consultant was notified that patient needing assistance with transportation home. I met with patient, he is needing a wheelchair ride home today. His will be home when he arrives but she is unable to drive. He has a ramp to enter the home and has [employer] PMAP. Ride re quested and obtained for [id number]. PT recommending outpatient PT, pt prefers to go to [facility] for outpatient PT. Paged ortho internal security manager and obtained order which I printed and gave to the patient and instructed him to call [facility] and they will want him to bring printed order to appt. Dilcia Barr RN KING GUIDE Plan of Care - Linda Longo RN - 10/03/2021 7:28 AM CST I completed a full assessment and assessments as ordered and per policy on this patient during my work shift. Reassessments completed during my work shift are unchanged unless documented. KING GUIDE Plan of Care - Brenda Bar RN [...] my work shift are unchanged unless documented. KING GUIDE Plan of Care - Kera Reeder RN - 10/02/2021 2:58 PM CST I completed a full assessment and assessments as ordered on this patient during my work shift. Reassessments completed during my work shift are unchanged unless documented. KING GUIDE Plan of Care - Sommer Lowery RN - 10/02/2021 1:16 AM CST [facility] Plan of Care Note Assessment: Plan of [...] unless documented. --- End of Report --- KING GUIDE Plan of Care - Brenda Bar RN [...] willing to answer and let RN do. KING GUIDE Plan of Care - Josep Cervantes MD [...] to the patient and agreed upon by [facility] team. Josep Cervantes MD Orthopaedic Surgery, PGY-2 Pager: [phone] KING GUIDE Plan of Care - Brenda Bar RN - 10/01/2021 5:06 PM CST [facility]. Practitioner Notified Note Name of Practitioner notified: Ortho consult Time of Practitioner notification: 5:08 PM Reason: E. Hol., [id number], Pt stating he will leave hospital without coming to floor. Not situationcan, security aware. Response: Ortho team coming up to talk to pt with security at bedside. Will notify pt at that time that is unable to come to floor. KING GUIDE Plan of Care - Estephania Mejia RN - 10/01/2021 2:19 PM CST [facility] Plan of Care Note Assessment: aggression, safety, [...] unless documented. --- End of Report --- KING GUIDE Plan of Care - Ladan Najera RN - 10/01/2021 10:08 AM CST [facility]. Practitioner Notified Note Name of Practitioner notified: Dr Gottlieb Time of Practitioner notification: 10:08 AM Reason: Luna, Ed: Can you come back to patient in ST[facility] 2? Patient refusing blood products and needs to sign on consent. Thanks. Response: Will come see patient KING GUIDE Plan of Care - Estephania Mejia RN - 10/01/2021 9:04 AM CST [facility] Nursing Pre-Op Note Admission Date/Time: 09/30/2021 5:33 PM Time of transport to the Operating Room: 903 Transported by: Litter/cart Pre-Op checklist complete?: yes KING GUIDE Plan of Care - Diana Early RN - 10/01/2021 3:56 AM CST [facility] Plan of Care Note Assessment: Plan of [...] two providers. Concerned about heather communicable diseases. Escalator Attendant stated this may delay his surgery. Patient states that he was being forced to get blood. Escalator Attendant explained the safety concerns of low hemoglobin and surgery. Patient stated he did not want to talk about it anymore. Aboutan hour later patient stated that he would take the blood under protest. Escalator Attendant clarified that this meant he was consenting. Patient confirmed. Started transfusion of 2 units. I completed a full assessment and assessments as ordered and per policy on this patient during my work shift. Reassessments completed during my work shift are unchanged unless documented. --- End of Report --- KING GUIDE Plan of Care - Josep Cervantes MD [...] and that this country is ???going to [facility]?? . I recognized that thepatient has reservations [...] health. He suggested that this felt like [facility]. He repeatedly statedthat the only circumstances under which he would be willing to receive blood is if I personally drafted a statement or letter that would allow him to yudi me personally, his nurse, and [facility] if he received any sort of blood borne illness from a transfusion. I explained that [facility] does not have such statements. Ultimately, [...] Josep Cervantes MD Orthopaedic Surgery, PGY-2 Pager: [phone] KING GUIDE Triage Assessment Note - Yari Adams RN - 09/30/2021 5:35 PM TREKKING GUIDE Patient arrived by [facility] from Hospital with chief complaint: Femur fracture Symptoms/background (EMS narrative): Pt. Was at home and slipped on the ice and fell on the left knee. CMS intact. Leg was splinted at [place] ED. Has been given dilaudid for pain. Interventions/abnormal vitals: VSS. 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 KING GUIDE documented in this encounter Admitting Diagnoses Diagnosis [...] Starting on Thu09/30/21 at 2142, Until Ruth 1/27/22 a t 1754, Cumulative bowel medication orders. [...] chewable tablet Given 10/03/2021 9:32 A M TREKKING GUIDE 1,000 mg 500-1,000 mg 500-1,000 mg, Oral, QID PRN, Heartburn, Dyspepsia, Starting on Thu09/30/21 at 2142, Until Ruht 10/03/21 at 1754, Each tablet provides 200 mg elemental calcium Given 10/02/2021 7:13 PM TREKKING GUIDE 1,000 mg Given 10/02/2021 2:30 PM TREKKING GUIDE 1,000 mg dextrose (D50) injection 25 g [...] injection 25-50 mcg Given 10/01/2021 3:35 PM TREKKING GUIDE 25 mcg 25-50 mcg, Intravenous, [id number], Pain, Starting on Thu10/01/21 at 1412, Until [...] medications., PACU (only) Given 10/01/2021 3:20 PM TREKKING GUIDE 50 mcg Given 10/01/2021 3:12 PM TREKKING GUIDE 25 mcg fentaNYL (SUBLIMAZE) injection 50 mcg Given 09/30/2021 6:19 PM TREKKING GUIDE 50 mcg 50 mcg, Intravenous, ONCE, On [...] injection 15 mg Given 09/30/2021 10:34 PM TREKKING GUIDE 15 mg 15 mg, Intravenous, Q6H PRN, Pain, Starting on Thu09/30/21 at 2142, Until Ruth 10/03/21 at 1508, For 8 doses, Hold all NSAIDS if SBP less than 100 mmHg. lactated ringers infusion Started 10/01/2021 1:51 PM TREKKING GUIDE Intravenous, at 30 mL/hr, CONTINUOUS, Starting on Thu10/01/21 at 0845, If IV started. Continuous., Pre-op Restarted 10/01/2021 1:03 PM TREKKING GUIDE Restarted 10/01/2021 10:17 AM TREKKING GUIDE methocarbamol (ROBAXIN) tablet 500 mg Given 09/30/2021 10:35 PM TREKKING GUIDE 500 mg 500 mg, Oral, Q6H PRN, [...] immediate release tablet Given 10/03/2021 2:44 PM TREKKING GUIDE 5 mg 5-10 mg 5-10 mg, Oral, Q4H PRN, Pain, Starting on Thu09/30/21 at 2142, Until Ruth 10/03/21 at 1754, Give PO opioid if able to take PO and pain not well controlled with other medications or interventions. Given 10/03/2021 9:32 AM TREKKING GUIDE 10 mg Given 10/02/2021 11:09 AM TREKKING GUIDE 5 mg polyethylene glycol (MIRALAX) oral powde [...] chloride 0.9% infusion Started 09/30/2021 11:31 PM TREKKING GUIDE 125 mL/hr Intravenous, at 125 mL/hr, CONTINUOUS, Starting on Thu09/30/21 at 2200 documented in this encounter Active and Recently Administered Medications Times are shown in TREKKING GUIDE. Scheduled Medication Order 10/01/2021 10/02/2021 10/03/2021 acetaminophen [...] Provider: Kera ordonez RN - Reason: Patient/family refused)111 (Not Given - Provider: Kera Reeder RN [...] 1036 (Given - Provider: Pooja Simmons APRN, ULTRASOUND TECHNOLOGIST SONOGRAPHER) 1,000 mg, Intravenous, ONCE, On 10/01 at [...] Provider: Anika Lazo RN) 25-50 mcg, Intravenous, [id number], Pain, Starting on Thu10/01/21 at 1412, Until [...] Reeder, SIMEON) 0932 (Given - Provider: Afshan cabrera RN)1444 (Given - Provider: Afshan Guajardo RN) 5-10 mg, Oral, Q4H PRN, Pain, Starting o n 09/30/21 at 2142, Until Ruth 10/03/21 at 1754, [...] Nausea/Vomiting. documented in this encounter Care Teams Camp Nurse Relationship Specialty Start Date End Date Kevin Bullock MD PCP - General Family Practice 09/30/21 documented as of this encounter
--- OUTSIDE RECORDS SUMMARY | 2022-08-05 10:32 | XMS_ITS | Encounter Summary ---
:1960 Author Organization [facility] Address [address], [place] [address] Care Team Providers Name Role Phone Cintia Cobb MD Primary Care Provider [phone] Reason for Visit Auth/Cert Specialty Diagnoses / [...] Expiration Date Visits Requ ested Visits Authorized [id number] 1 1 Encounter Details Date Type Department Care Team Description 10/01/2021 Anesthesia Event RH Operating Room Yasmany Lewis MBBS [address] [place] [address] [place], [place] [address]German MD [address] [place] [address] [place] [address] Anesthesia Record Procedure Summary Procedure Name Responsible [...] Electr onically signed by Pooja Whitlock APRN, GUITAR TEACHER 1449 An Stop Care transferred . Name [...] Pooja Noonan, Pooja Noonan, Time: 1024; Placed COPPER MINER, GUITAR TEACHER COPPER MINER, GUITAR TEACHER By: GUITAR TEACHER; Induction Type: Pre-O2, IV; Masking: Easy; ETT [...] Kelley DO - 10/01/2021 4:[address] [facility] Anesthesia Post-op Note Patient: Ed J Luna [...] by: Jonah Kelley DO 10/01/2021 4:30 PM ENT MANAGER Anesthesia Preprocedure Evaluation - German Henry MD - 10/01/2021 10:[address] [facility] Anesthesia Pre-op Evaluation Procedure: OPEN REDUCTION INTERNAL [...] QT 466 ms QTc 480 ms R [place] -89 degrees T [place] 68 degrees Physical Exam: BP (!) 140/83 [...] by: German Henry MD 10/01/2021 10:02 AM ENT MANAGER documented in this encounter Plan of Treatment Upcoming Encounters Date Type Specialty Care Team Description 09/15/2022 Appointment Orthopedics Delgado Gottlieb MD [address] [place], [place] [address] (Gavi presley) 10/08/2022 Appointment Orthopedics Delgado Gottlieb MD [address] [place], [place] [address] (Gavi presley) 05/27/2023 Appointment Chemo Therapy/Infusion Services documented as of this encounter Visit Diagnoses Not on filedocumented in this encounter Administered Medications Inactive Administered Medications - up to 3 most recent administrations Medication Order MAR Action Action Date Dose Rate Site albumin human Given 10/01/2021 12:51 PM PATIENT MANAGER 250 mL (ALBUMINAR,ALBUTEIN) 5 % infusion Intravenous, Starting on Thu10/01/21 at 1251, Until Thu10/01/21 at 1449 ceFAZolin in sodium chloride 0.9% (ANCEF) IVPB Given 0 10/01/2021 10:31 AM PATIENT MANAGER 2 g 2 g 2 g, Intravenous, Administer over 30 Minutes, ONCE (NON-SCHEDULED), Starting on Thu10/01/21 at 0828, For 1 dose, For patient weight less than or equal to 119 kg PRE-OP, Pre-op dexamethasone (DECADRON) injection Given 10/01/2021 10:37 AM PATIENT MANAGER 4 mg Intravenous, Starting on Thu10/01/21 at 1037, Until Thu10/01/21 at 1449 dexmedetomidine 20 mcg/5 mL injection Given 10/01/2021 2:20 PM PATIENT MANAGER 8 mcg Intravenous, Starting on Thu10/01/21 at 1420, Until Thu10/01/21 at 1449 ePHEDrine 5 mg/mL injection Given 10/01/2021 1:38 PM PATIENT MANAGER 5 mg Intravenous, Starting on Thu10/01/21 at 1159, Until Thu10/01/21 at 1449 Given 10/01/2021 12:16 PM PATIENT MANAGER 5 mg Given 10/01/2021 11:59 AM PATIENT MANAGER 5 mg fentaNYL (SUBLIMAZE) injection Given 10/01/2021 2:19 PM PATIENT MANAGER 0.5 mL Intravenous, Starting on Thu10/01/21 at 1017, Until Thu10/01/21 at 1449 Given 10/01/2021 2:17 PM PATIENT MANAGER 0.5 mL Given 10/01/2021 11:17 AM PATIENT MANAGER 1 mL lactated ringers infusion Started 10/01/2021 1:51 PM PATIENT MANAGER Intravenous, at 30 mL/hr, CONTINUOUS, Starting on Thu10/01/21 at 0845, If IV started. Continuous., Pre-op Restarted 10/01/2021 1:03 PM PATIENT MANAGER Restarted 10/01/2021 10:17 AM PATIENT MANAGER lidocaine PF (XYLOCAINE) 1 % injection Given 10/01/2021 10:23 AM PATIENT MANAGER 50 mg Intravenous, Starting on Thu10/01/21 at 1023 midazolam (VERSED) injection Given 10/01/2021 10:17 AM PATIENT MANAGER 2 mg Intravenous, Starting on Thu10/01/21 at 1017, Until Thu10/01/21 at 1449 ondansetron (ZOFRAN) injection Given 10/01/2021 1:56 PM PATIENT MANAGER 4 mg Intravenous, Starting on Thu10/01/21 at 1356, Until Thu10/01/21 at 1449 phenylephrine-NaCl 0.9% (KANA-SYNEPHRINE) Given 10/01/2021 1:38 P M PATIENT MANAGER 100 mcg injection Intravenous, Starting on Thu10/01/21 at 1033, Until Thu10/01/21 at 1449 Given 10/01/2021 1:27 PM PATIENT MANAGER 100 mcg Given 10/01/2021 1:14 PM PATIENT MANAGER 100 mcg propofol (aka diPRIvan) injection Given 10/01/2021 10:23 AM PATIENT MANAGER 100 mg Intravenous, Starting on Thu10/01/21 at 1023 rocuronium (ZEMURON) injection Given 10/01/2021 1:50 PM PATIENT MANAGER 10 mg Intravenous, Starting on Thu10/01/21 at 1029, Until Thu10/01/21 at 1449 Given 10/01/2021 1:17 PM PATIENT MANAGER 20 mg Given 10/01/2021 12:33 PM PATIENT MANAGER 20 mg succinylcholine (QUELICIN) injection Given 10/01/2021 10:23 AM PATIENT MANAGER 80 mg Intravenous, Starting on Thu10/01/21 at 1023, Until Thu10/01/21 at 1449 sugammadex (BRIDION) injection Given 10/01/2021 2:35 PM PATIENT MANAGER 200 mg Intravenous, Starting on Thu10/01/21 at 1435, Until Thu10/01/21 at 1449 tranexamic acid (CYKLOKAPRON) 1000 mg in Given 10/01/2021 10 :36 AM PATIENT MANAGER 1,000 mg sodium chloride 0.9% (10 mg/mL) 100 mL IVPB premix 1,000 mg, Intravenous, ONCE, On Thu10/01/21 at 0900, For 1 dose, Administer once at incision and once at start of closure., Pre-op tranexamic acid (CYKLOKAPRON) 1000 mg in Given 10/01/2021 1:59 P M PATIENT MANAGER 1,000 mg sodium chloride 0.9% (10 mg/mL) 100 mL IVPB premix 1,000 mg, Intravenous, ONCE, On Thu10/01/21 at 0900, For 1 dose, Administer once at incision and once at start of closure., Pre-op documented in this encounter Care Teams Sack Cleaning Hand Relationship Specialty Start Date End Date Cintia Cobb MD PCP - General Family Practice 09/30/21 documented as of this encounter
--- OUTSIDE RECORDS SUMMARY | 2022-08-05 10:33 | XMS_ITS | Encounter Summary ---
:1960 [facility] Address [address] [place] [address] Care Team Providers Name Role Phone Ladan Song MD Primary Care Provider Unavailable Reason for Visit Reason Comments QUESTIONS, GENERAL Encounter Details Date Type Department Care Team Description 03/27/2021 Telephone [facility] Cesar Champagne, QUESTIONS, GENERAL [address] [facility] [place], [place] [address] [address] [phone] [place] [phone] (Wo rk) Social History Tobacco Use [...] stated he had a CT myelogram at [facility] yesterday. Patient scheduled for follow-up Future Appointments Provider Department Center 04/19/2021 3:00 PM Freddy Delgado PA-C [facility] Patient continues to have low back pain [...] you been seen for this recently?: N/A [Inter Fold Roll Cutter/Appt Center: If yes, please include date and provider.] Is it okay to leave detailed message on your voicemail? No Pt. doesn't have voicemail. Try calling him back if he didn't answer. [Inter Fold Roll Cutter/Appt Center: If this call is after 3 p.m., communicate to patient: If we are not able to get back to you by the end of the day and your symptoms worsen please contact the Careline] documented in this encounter Plan of Treatment Upcoming Encounters Date Type Specialty Care Team Description 09/15/2022 Appointment Orthopedics Delgado Gottlieb MD [address] [place] [address] (Gavi presley) 10/08/2022 Appointment Orthopedics Delgado Gottlieb MD [address] [place], [place] [address] (Gavi presley) 05/27/2023 Appointment Chemo Therapy/Infusion Services documented as of this encounter Visit Diagnoses Not on filedocumented in this encounter Care Teams Vascular Technician Relationship Specialty Start Date End Date Ladan Song MD PCP - General Internal Medicine 08/18/17 09/29/21 documented as of this encounter
--- OUTSIDE RECORDS SUMMARY | 2022-08-05 10:33 | XMS_ITS | Encounter Summary ---
:1960 Author Organization [facility] Address [address] [address] Care Team Providers Name Role Phone Ladan Song MD Primary Care Provider Unavailable Reason for Referral (Routine) - New Request Specialty Diagnoses / Procedures Referred By Contact Refer red To Contact Diagnoses Lumbar radiculitis Juan Miguel Buckley MD Procedures [facility] [address] [place] [address] Referral ID Status Reason Start Date Expiration Date Visits V isits Requested Authorized [id number] New Request 06/26/2021 09/25/2022 1 1 Reason for Visit Reason Comments Procedure Procedure/Equipment (Routine) - Closed Specialty Diagnoses / Referred By Contact Referred To Contact Procedures Interventional Pain Mgmt Diagnoses Osteoarthritis of spine with radiculopathy, lumbar region (HRC) Cesar Scherer, [facility] Procedures FL C Arm 20 Pain Management [address] [facility] [address] [place] [address] [place], [place] Phone: [phone] Referral ID Status Reason Start Date Expiration Date Visits Requ ested Visits Authorized [id number] Closed 05/14/2021 08/13/2022 1 1 Encounter Details Date Type Department Care Team Description 06/26/2021 Procedure Visit [facility] Cesar Scherer MD [address] [facility] [address] [place] [address] [address] [facility] [address] Juan Miguel Buckley MD [address] [facility] [place] [address] [place] [address] 1, Jean Brady Rn [phone] Social History Tobacco Use Types Packs/Day Years [...] Dr. Scherer in 10-14 days. Please call [phone] to schedule an appointment if you do not already have one. Lumbar Epidural Injection Post-Procedure Instructions: ?? Rest today, you may resume your normal activities tomorrow (Physical Therapy & grounds caretaker can also be resumed next day). ?? [...] and Anesthesiologist Please contact the Pain Nurse ([phone]) for all medical/procedural questions regarding your care at the [facility] Please contact our Industrial Refrigeration Mechanic ([phone]) for all administrative/scheduling questions related to the [...] completed, patient verbalizes understanding. 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 Consent per MD. Rebecca Leiva RN - 06/26/2021 7:30 AM CDT Patient tolerated procedure well, vital signs stable. Post-procedure pain level 0/10 at rest, 0/10 with activity. Discharge instructions given (written & verbal review), patient verbalized understanding. Patient discharged to home at 0820 via ambulatory with entry level truck driver. documented in this encounter Procedure Notes Juan Miguel Buckley MD - 06/26/2021 7:30 AM CDT Procedure Note Lumbar Interlaminar ERIN Procedure Date: 06/26/2021 Ed [facility] Date of : 1960 Interventionalist: Juan Miguel [...] prone on the fluoroscopy table. Then a application trainer film was taken to identify the correct [...] well and was discharged home, with a entry level truck driver, in stable condition with post [...] Care Team Description 09/15/2022 Appointment Orthopedics Delgado Gottileb MD [address] [place], [place] [address] (Wo rk) 10/08/2022 Appointment Orthopedics Delgado Gottlieb MD [address] [place], [place] [address] (Gavi rk) 05/27/2023 Appointment [...] (HRC) documented in this encounter Care Teams Carpenter Cradle And Dolly Relationship Specialty Start Date End Date Ladan Song MD PCP - General Internal Medicine 08/18/17 09/29/21 documented as of this encounter
--- OUTSIDE RECORDS SUMMARY | 2022-08-05 10:33 | XMS_ITS | Encounter Summary ---
:1960 Author Organization [email or web address] Address [address] [place] [address] Care Team Providers Name Role Phone Cintia Cobb MD Primary Care Provider [phone] Reason for Visit Reason Comments Consult, New Patient Encounter Details Date Type Department Care Team Description 09/30/2021 Telephone Specialty Center [facility] , Consult, New Patient Orthopedics Clinic Provider [address] [facility] [place] [address] Social History Tobacco Use Types Packs/Day Years [...] 3:53 PM CST Yimi HOGAN, calling from [facility] in [place]. Looking for treatment advice. Believes patient needs surgery. -Left Distal Femur Fracture, DOI: 09/30/21, ~7 am Discussed with Leta Daigle and Niyah Cintron. Advised to have [facility] call [facility] at [phone], and also have them push imaging to Pacs. Called Yimi back and notified him of this. Verbal order per Provider [facility]. Mandy Galindo LPN T SALES MANAGER documented in this encounter Plan of Treatment Upcoming Encounters Date Type Specialty Care Team Description 09/15/2022 Appointment Orthopedics Delgado Gottlieb MD [address] [place], [place] [address] (Wo rk) 10/08/2022 Appointment Orthopedics Delgado Gottlieb MD [address] [place], [place] [address] (Wo rk) 05/27/2023 Appointment Chemo Therapy/Infusion Services documented as of this encounter Visit Diagnoses Not on filedocumented in this encounter Care Teams Lighting Specialist Relationship Specialty Start Date End Date Cintia Cobb MD PCP - General Family Practice 09/30/21 documented as of this encounter
--- OUTSIDE RECORDS SUMMARY | 2022-08-05 10:33 | XMS_ITS | Encounter Summary ---
:[address] [facility] Address [address] [address] Care Team Providers Name Role Phone Ladan Song MD Primary Care Provider Unavailable Reason for Visit Reason Comments Pre-procedure Call Encounter Details Date Type Department Care Team Description 06/20/2021 Telephone [facility] Rebecca Leiva RN Pre-procedure Call [address] [place], [place] [address] Social History Tobacco Use Types [...] 09/15/2022 Appointment Orthopedics Delgado Gottlieb MD [address] [place], [place] [address] (Gavi presley) 10/08/2022 Appointment Orthopedics Delgado Gottlieb MD [address] [place] [address] (Gavi presley) 05/27/2023 Appointment Chemo Therapy/Infusion Services documented as of this encounter Visit Diagnoses Not on filedocumented in this encounter Care Teams Apple Peeler Operator Relationship Specialty Start Date End Date Ladan Song MD PCP - General Internal Medicine 08/18/17 09/29/21 documented as of this encounter
--- OUTSIDE RECORDS SUMMARY | 2022-08-05 10:33 | XMS_ITS | Encounter Summary ---
:1960 Author Organization [facility] Address [address] [place] [address] Care Team Providers Name Role Phone Ladan Song MD Primary Care Provider Unavailable Reason for Referral Procedure/Equipment (Routine) - Closed Specialty Diagnoses / Referred By Contact Referred To Contact Procedures Interventional Pain Mgmt Diagnoses Osteoarthritis of spine with radiculopathy, lumbar region (HRC) Everardo Scherer [facility] Procedures FL C Arm 20 Pain Management MD [address] [facility] [address] [facility] [address] [address] [place], [place] Phone: [phone] Referral ID Status Reason Start Date Expiration Date Visits Requ ested Visits Authorized [id number] Closed 05/14/2021 08/13/2022 1 1 Reason for Visit Reason Comments Follow Up Ct Results lumbar Encounter Details Date Type Department Care Team Description 05/14/2021 Office Visit YOU Scherer Osteoarthri tis of spine CENTER Everardo Murray MD with radiculopathy, [address] [facility] [address] lumbar region (Primary [place], [place] [address] [place] [address] Dx) [phone] [place] [address] Social History Tobacco Use Types [...] 12:00 AM CDT NAME: LAZ LUNA CSN: [id number] CLINIC NOTE DATE OF SERVICE: 05/14/2021 : [...] questions or concerns. EVERARDO SCHERER MD JDS/AQS /[id number] documented in this encounter Plan of Treatment Upcoming Encounters Date Type Specialty Care Team Description 09/15/2022 Appointment Orthopedics Delgado Gottlieb MD [address] [place] [address] (Wo rk) 10/08/2022 Appointment Orthopedics Delgado Gottlieb MD [address] [place], [place] [address] (Wo rk) 05/27/2023 Appointment [...] (HRC) documented in this encounter Care Teams Steel Die Printer Relationship Specialty Start Date End Date Ladan Song MD PCP - General Internal Medicine 08/18/17 09/29/21 documented as of this encounter
--- OUTSIDE RECORDS SUMMARY | 2022-08-05 10:33 | XMS_ITS | Encounter Summary ---
:1960 Author Organization [facility] Address [address] [place] [address] Care Team Providers Name Role Phone Ladan Song MD Primary Care Provider Unavailable Reason for Visit Reason Comments Other Scheduled ILESI Encounter Details Date Type Department Care Team Description 06/06/2021 Telephone [facility] Juan Miguel Buckley MD Other (Scheduled ILESI [address] [facility] [address] [facility] ) [place], [place] [address] [place], [place] [phone] (Wo rk) Social History Tobacco Use Types [...] scheduled 06-26-21, reiterated our policy regardingrequirement for mechanic welder truck driver home after injection and NPO [...] instructions for our visits. Ed says his [facility] does not require this nor did his myelogram so why should he for this. Ed also says he will not need a mechanic welder truck driver for his ILESI on 06/26/21 [...] 09/15/2022 Appointment Orthopedics Delgado Gottlieb MD [address] [place], [place] [address] (Gavi presley) 10/08/2022 Appointment Orthopedics Delgado Gottlieb MD [address] [place], [place] [address] (Gavi presley) 05/27/2023 Appointment Chemo Therapy/Infusion Services documented as of this encounter Visit Diagnoses Not on filedocumented in this encounter Care Teams Human Resources Consultant Relationship Specialty Start Date End Date Ladan Song MD PCP - General Internal Medicine 08/18/17 09/29/21 documented as of this encounter
--- OUTSIDE RECORDS SUMMARY | 2022-08-05 10:33 | XMS_ITS | Encounter Summary ---
:1960 Author Organization [facility] Address [address], [place] [address] Care Team Providers Name Role Phone Kevin Cobb MD Primary Care Provider [phone] Reason for Visit Reason Comments FRACTURE Auth/Cert [...] Expiration Date Visits Requ ested Visits Authorized [id number] 1 1 Encounter Details Date Type Department Care Team Description 10/01/2021 Surgery Operating Room Martha Gottlieb, OPEN REDUCTION INTERNAL [address] John Salas MD [place] [address] DISTAL FEMUR FRACTURE [phone] [place], [place] [id number] Social History Tobacco Use Types Packs/Day Years [...] Comments Blood Pressure 98/45 10/01/2021 4:10 PM PRESS SECRETARY Pulse 66 10/01/2021 4:10 PM PRESS SECRETARY Temperature 36.9 ??C (98.4 ??F) 10/01/2021 4:10 PM PRESS SECRETARY Respiratory Rate 12 10/01/2021 4:10 PM PRESS SECRETARY Oxygen Saturation 100% 10/01/2021 4:10 PM PRESS SECRETARY Inhaled Oxygen Concentration - - Weight 82.5 kg (181 lb 14.4 oz) 10/01/2021 2:00 AM PRESS SECRETARY Height - - Body Mass Index 24.67 10/01/2021 2:00 AM PRESS SECRETARY documented in this encounter Discharge Summaries Suzie Daigle PA-C - 10/02/2021 8:50 AM CST [facility] Orthopedic Discharge Note Patient Name: Noemí [...] Date: 10/16/2021 Time: 10:20a Provider: Dr. Gottlieb [facility]: Orthopaedic & Sports Medicine; ( FAMILY OF CARE REFERRAL) [phone]; [address] [place] [address] References: Specialty Connection Sari Aneesh Consult Page Question: Reason for visit? Answer: s/p ORIF IMN L femur Discharge Practitioner Electronic Signature Comments: Suzie Daigle PA-C 10/02/2021 8:43 AM These orders have been electronically signed. (In accordance with [place] Fed. Regulation Set, Fed A0232 - Types of Authentication) Weight bearing as tolerated Comments: You may resume normal weight bearing on the affected limb(s) as tolerated. Discharge Diet (see comments) Comments: Diabetic Follow Up: The patient will follow up with Martha Gottlieb MD in 2 weeks. At follow up, xrays should include L femur. This note completed by: Suzie Daigle PA-C S SECRETARY documented in this encounter Discharge Instructions Discharge InstructionsAisha Workman RN - 10/03/2021 8:15 AM CST Clinic Phone Numbers ??? [facility]: [phone] ??? [facility]: [phone] Labs and Warfarin (Coumadin) Information No data found. This information has been sent to the following clinic:{COUMADIN FAX DESTINATION:[id number]} [facility] ??? Always wash your hands [...] density, or have had a fracture, call [phone] to schedule an appointment. S SECRETARY documented in this encounter Medications at Time [...] Thompson MD - 10/03/2021 5:27 AM CST [facility] Orthopedic Surgery Progress Note Subjective: Patient sleeping comfortably this morning; attempted to wake but patient declined to answer questions and went back to sleep. Continues to refuse cares. Hgb 5.6 yesterday but declined transfusion. Still refusing prophylactic antibiotics. Objective: Vitals: 10/02/219 BP: 113/68 Pulse: 77 Resp: 18 Temp: [...] Edward Thompson MD Orthopedic Surgery, PGY-2 Pager: [phone] S SECRETARY Kay Mcadams PA-Kalia - 10/02/2021 2:52 PM CST Brief Hospital [...] Vera MD - 10/02/2021 5:07 AM CST [facility] Orthopedic Surgery Progress Note Subjective: Last [...] evaluated the patient. Nathen Burger MD, PGY-1 [facility] Orthopedic Surgery Pager: [phone] 10/02/2021 5:07 AM S SECRETARY Anika Lazo RN - 10/01/2021 4:21 PM CST I completed a full assessment and assessments as ordered and per policy on this patient during my work shift. Reassessments completed during my work shift are unchanged unless documented. S SECRETARY Kya Mcadams PA-C - 10/01/2021 4:00 PM CST Brief HM Note Unable to see patient today as he has been in the OR. Recommend repeat Hgb and consideration of IV iron if pt agreeable. Medicine will f/u tomorrow. Kay Mcadams PA-C Department of Hospital Medicine Josep Anderson MD - 10/01/2021 5:40 AM CST [facility] Orthopedic Surgery Progress Note Subjective: Patient [...] days. F/U: TBD Josep Cervantes MD, PGY-2 [facility] Orthopedic Surgery Pager: [phone] 10/01/2021 5:41 AM S SECRETARY documented in this encounter Procedure Notes Suzie Daigle PA-C - 10/01/2021 2:04 PM CST [facility] Brief Operative Progress Note Surgery [...] left femur x-rays needed. Suzie Daigle PA-C S SECRETARY Martha Gottlieb MD - 10/01/2021 12:00 AM CST NAME: NOEMÍ LUNA CSN: [id number] OPERATIVE REPORT DATE OF SURGERY: 10/01/2021 : [...] after the injury. He was brought to [facility] emergency department, where he was found to have a comminuted and displaced left supracondylar distal femur fracture. This was a closed injury, and he was neurovascularly intact. Of note, the patient had sustained an ipsilateral left intertrochanteric femur fracture in August of 2019for which he underwent short intramedullary nailing in [place], [place]. Prior to this most recent injury, the patient was ambulatory with a cane. 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 The IT band laterally was closed with #1 Vicryl [id number]-[id number] sutures. All skin incisions were then closed with 2-0 Vicryl buried deepdermal sutures and chapis. A sterile compressive dressing was then applied and finally the leg was wrapped in a double length 6-inch Carmita wrap. The patient was transferred back to his hospital bed, andthe Munoz catheter was removed. He was awoken from anesthesia without incident and taken to the [facility] room in stable condition. COMPLICATIONS: None. [...] of the procedure. MARTHA GOTTLIEB MD RDW/AQS /[id number] S SECRETARY documented in this encounter Consult Notes Jaja Amor PA-C - 10/02/2021 10:40 AM CSTAssociated Order(s): ENDOCRINE CONSULT See consult note 10/01. Will continue to follow peripherally x24 hours. Glucose remains stable. 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 Keyla Gilbert APRN, DATA ENTRY SPECIALIST S SECRETARY Ted Burdick MD - 09/30/2021 9:29 PM CST [facility] Pre-operative Exam Patient Name: Noemí Luna [...] JACKSON. 3.9 % 30-day risk of , SD, or cardiac arrest per RCRI. Neither of [...] extensive explanations of risks of anemia pre-operatively (SD, , etc) and screening for infections of [...] Ordered EKG to ensure paced appropriately. From Duce[employer] 2017, based on pooled data from 5 [...] Didn't lose consciousness. Didn't hit head. 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 Worried that he will lose [...] surgery on 10/01/[address] Peck at [facility]. Pre-operative Screening Questions: Tightening or pressure [...] Procedure: ESOPHAGOGASTRODUODENOSCOPY; Surgeon: Rene Carlson M.D.; Location: [facility] GI [facility]?? Medical devices from this surgery are in the Medical Devices section.?? CARDIAC PACEMAKER PLACEMENT ? OPEN REDUCTION INTERNAL FIXATION FEMUR 08/13/2019 Hip/Left Procedure: OPEN REDUCTION INTERNAL FIXATION LEFT FEMUR; Surgeon: John Norman M.D.; Location: [facility] OR?? Medical devices from this surgery [...] HYDROCODON-APAP 5-325 07/27/2021 2 8 Each CHUNG GARZAling C[employer]/Speci... ALLOPURINOL 300 MG TABS 07/19/2021 30 [...] conditions: No # Acute coronary syndrome # SD < one month ago # decompensated heart [...] CC: consult --- End of Report --- S SECRETARY Martha Gottlieb MD - 09/30/2021 6:15 PM [...] obstruction who presentsas a transfer from the [place] ED with left distal thigh pain after [...] femur fracture by Dr. John Norman in [place], [place]. Location: Left distal thigh Time of Onset: today Severity: 04/16 Quality: sharp Radiation: none Exacerbating: movement, WB Alleviating: rest Associated symptoms: none Patient has been NPO since 1999 on 09/29/21. Patient lives with his and dog. Patient ambulates with a cane. 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 If there is no reply, if it is a weekend, or if it is after hours, then please page the orthopedic surgery service pager at [phone] Attestation: I saw and evaluated this patient and we have discussed the plan of care with the resident. I have personally reviewed the patient's imaging and laboratory data. I agree with the findings as detailed inthe resident's note. Martha Gottlieb MD Application Designer [facility] Department of Orthopaedic Surgery [facility] S SECRETARY documented in this encounter ED Notes Jonah Nova MD - 09/30/2021 6:14 PM CST [facility] Emergency Department Attending Supervision Note Pt [...] and screen Admit Author: Jonah Nova MD S SECRETARY Francisca Harvey MD - 09/30/2021 5:45 PM CST [facility] Emergency Medicine Visit Note Chief Complaint: [...] his knee and was brought to the [place] ED for evaluation. There, was found to [...] and left knee imaging as images from [facility] of the left knee are not available. [...] femur, unspecified fracture morphology, initial encounter (HRC) S SECRETARY Juan Miguel Rios MD - 09/30/2021 4:01 PM CST Referred from [facility] by MD for L femur fx. Background/plan: Slipped and fell this morning. L distal femur fx. CMS intact. No other hinjury. Noton anticoag. VSS Covid negative. Needs ortho Means of arrival: EMS Call back: none S SECRETARY documented in this encounter Plan of Treatment Upcoming Encounters Date Type Specialty Care Team Description 09/15/2022 Appointment Orthopedics Martha Gottlieb MD [address] [place], [place] [address] (Wo rk) 10/08/2022 Appointment Orthopedics aMrtha Gottlieb MD [address], [place] [address] (Wo rk) 05/27/2023 Appointment Chemo Therapy/Infusion Services Pending Results Name Type Priority Associated Diagnoses Date/Ti me Transfuse RBC Nursing Transfusion Routine 022 3:23 AM PRESS SECRETARY Scheduled Referrals Name Type Priority Associated Diagnoses [...] 10/02/2021 10:21 Resu lts for this AM PRESS SECRETARY procedure are i n the results section. VITAMIN D 25-HYDROXY, Routine 10/02/2021 8:22 Res ults for this TOTAL AM PRESS SECRETARY procedure are i n the results section. INTACT PTH Routine 10/02/2021 8:22 Results for this AM PRESS SECRETARY procedure are i n the results section. COMP METABOLIC PANEL Routine 10/02/2021 8:22 Resu lts for this AM PRESS SECRETARY procedure are i n the results section. TSH, SENSITIVE Routine 10/02/2021 8:22 Results fo r this AM PRESS SECRETARY procedure are i n the results section. COMPLETE BLOOD COUNT-NO Routine 10/02/2021 8:22 R esults for this DIFF AM PRESS SECRETARY procedure are i n the results section. GLUCOSE, WHOLE BLOOD POCT Routine 10/01/2021 3:00 Results for this PM PRESS SECRETARY procedure are i n the results section. XR C-ARM 3.5-4 HOURS Routine 10/01/2021 2:11 Resu lts for this PM PRESS SECRETARY procedure are i n the results section. HEMOGLOBIN, MEASURED POCT Routine 10/01/2021 10:52 Results for this AM PRESS SECRETARY procedure are i n the results section. GLUCOSE, WHOLE BLOOD POCT Routine 10/01/2021 10:48 Results for this AM PRESS SECRETARY procedure are i n the results section. INSERTION INTRAMEDULLARY 10/01/2021 9:59 Closed fractu re of NAIL FEMUR AM PRESS SECRETARY distal end of left femur, unspecified fracture morphology, initial encounter (HRC) OPEN REDUCTION INTERNAL 10/01/2021 9:59 Closed fractur e of FIXATION DISTAL FEMUR AM PRESS SECRETARY distal end of left FRACTURE femur, unspecified fracture morphology, initial encounter (HRC) GLUCOSE, WHOLE BLOOD POCT Routine 10/01/2021 9:16 Results for this AM PRESS SECRETARY procedure are i n the results section. ECG 12-LEAD ROUTINE(LAB Routine 10/01/2021 6:20 R esults for this PERFORM) AM PRESS SECRETARY procedure are i n the results section. [address]26 ELECTROCARDIOGRAM STAT 10/01/2021 6:14 R esults for this TRACING AM PRESS SECRETARY procedure are i n the results section. IV INSERTION(LAB TO STAT 10/01/2021 2:34 Resul ts for this PERFORM) AM PRESS SECRETARY procedure are i n the results section. PREP RBC LR Routine 09/30/2021 11:01 Results for this PM PRESS SECRETARY procedure are i n the results section. XR PELVIS AP W AP/LAT HIP STAT 09/30/2021 7:32 Results for this LT PM PRESS SECRETARY procedure are i n the results section. XR FEMUR LT 2 VIEWS LOWER STAT 09/30/2021 7:32 Results for this AP/LAT PM PRESS SECRETARY procedure are i n the results section. XR KNEE LT 2 VIEWS STAT 09/30/2021 7:32 Result s for this PM PRESS SECRETARY procedure are i n the results section. CBC AND DIFFERENTIAL Routine 09/30/2021 7:02 Resu lts for this PANEL PM PRESS SECRETARY procedure are i n the results section. BT SECOND DRAW Routine 09/30/2021 7:02 Results fo r this PM PRESS SECRETARY procedure are i n the results section. COMPLETE BLOOD Routine 09/30/2021 7:02 Results fo r this COUNT-W/DIFF PM PRESS SECRETARY procedure are i n the results section. BASIC METABOLIC PANEL Routine 09/30/2021 7:02 Res ults for this PM PRESS SECRETARY procedure are i n the results section. DIFFERENTIAL Routine 09/30/2021 7:02 Results for this PM PRESS SECRETARY procedure are i n the results section. FERRITIN Add-On 09/30/2021 7:02 Results for this PM PRESS SECRETARY procedure are i n the results section. IRON PROFILE Add-On 09/30/2021 7:02 Results for this (IRON,TIBC,%SAT.(CALC)) PM PRESS SECRETARY proc edure are in the results section. TYPE AND SCREEN STAT 09/30/2021 6:27 Results f or this PM PRESS SECRETARY procedure are i n the results section. ANTIBODY SCREEN STAT 09/30/2021 6:27 Results f or this PM PRESS SECRETARY procedure are i n the results section. BLOOD TYPE STAT 09/30/2021 6:27 Results for this PM PRESS SECRETARY procedure are i n the results section. PATH REVIEW (LAB USE Routine 09/30/2021 6:27 Resu lts for this ONLY) PM PRESS SECRETARY procedure are i n the results section. APTT (ACTIVATED PARTIAL Routine 09/30/2021 6:27 R esults for this THROMBOPLASTIN TIME PM PRESS SECRETARY procedur e are in the results section. HEMOGLOBIN, BLOOD STAT 09/30/2021 6:27 Results for this PM PRESS SECRETARY procedure are i n the results section. INR/PROTIME Routine 09/30/2021 6:27 Results for this PM PRESS SECRETARY procedure are i n the results section. documented in this encounter Results XR Femur Lt 2 Views (10/02/2021 10:21 AM PRESS SECRETARY) Anatomical Region Laterality Modality Lower Extremity, Leg, Thigh Computed Rad iography Specimen (Source) Anatomical Collection Method Collection Time Re ceived Time Location / / Volume Laterality 10/02/2021 10:21 AM PRESS SECRETARY Narrative 10/02/2021 10:37 AM PRESS SECRETARY EXAM: XR FEMUR LT 2 VIEWS LOCATION: [facility] DATE/TIME: 10/02/2021 10:21 AM INDICATION: S/p [...] EXAM: XR FEMUR LT 2 VIEWS LOCATION: [facility] DATE/TIME: 10/02/2021 10:21 AM INDICATION: S/p [...] D 25 HYDROXY, TOTAL (10/02/2021 8:22 AM PRESS SECRETARY) [facility] gist Method Time Signature Vitamin D, 58 30 - 80 10/02/2021 [facility] 25-OH, Total ng/mL 12:54 PM [facility] Specimen Anatomical Collection Method / Collection Time Recei shahid Time (Source) Location / Volume Laterality Blood Venipuncture 10/02/2021 8:22 10/02/2021 8 :32 Butterfly / Unknown AM PRESS SECRETARY AM PRESS SECRETARY Keyla Gilbert APRN, KORIN LAB_1 Performing Organization Address City/State/ZIP Code Phon e Number [facility] [address] [address] TSH (10/02/2021 8:22 AM PRESS SECRETARY) P athologist Signature TSH, Sensitive 0.31 0.30 - 10/02/2021 [facility] 4.50 9:37 AM [facility] uIU/mL Specimen Anatomical Collection Method / Collection Time Recei shahid Time (Source) Location / Volume Laterality Blood Venipuncture 10/02/2021 8:22 10/02/2021 8 :33 Butterfly / Unknown AM PRESS SECRETARY AM PRESS SECRETARY Keyla E Ofelia TRANSCRIPTION TYPIST, DATA ENTRY SPECIALIST LAB_1 Performing Organization Address City/State/ZIP Code Phon e Number [address] [address] (ABNORMAL) Comp Metabolic Panel (10/02/2021 8:22 AM PRESS SECRETARY) Analysis Performed At Patho logist Time Signature Sodium 137 136 - 145 10/02/2021 [facility] mmol/L 9:19 AM [facility] Potassium 4.2 3.5 - 5.1 10/02/2021 [facility] mmol/L 9:19 AM [facility] Chloride 108 98 - 109 10/02/2021 [facility] mmol/L 9:19 AM [facility] CO2 23 20 - 29 10/02/2021 [facility] mmol/L 9:19 AM [facility] Anion Gap 6 (L) 7 - 16 10/02/2021 [facility] mmol/L 9:19 AM [facility] Calcium 8.4 8.4 - 10.4 10/02/2021 [facility] mg/dL 9:19 AM [facility] BUN 30 (H) 7 - 26 10/02/2021 [facility] mg/dL 9:19 AM [facility] Creatinine 0.96 0.73 - 10/02/2021 [facility] 1.18 mg/dL 9:19 AM [facility] GFR, Estimated >60 >60 10/02/2021 [facility] mL/min/1.7 9:19 AM [facility] 3m2 Alkaline 42 40 - 150 10/02/2021 [facility] Phosphatase U/L 9:19 AM [facility] AST (SGOT) 12 10 - 40 10/02/2021 [facility] U/L 9:19 AM [facility] ALT (SGPT) 13 0 - 55 U/L 10/02/2021 [facility] 9:19 AM [facility] Bilirubin, Total 0.2 0.2 - 1.2 10/02/2021 [facility] mg/dL 9:19 AM [facility] Protein, Total 5.5 (L) 6.4 - 8.3 10/02/2021 [facility] g/dL 9:19 AM [facility] Albumin 3.1 (L) 3.5 - 5.0 10/02/2021 [facility] g/dL 9:19 AM [facility] Glucose 116 (H) 70 - 100 10/02/2021 [facility] mg/dL 9:19 AM [facility] Comment: The given reference range is fo r the fasting state. Non-fasting reference range for glucose is 70 - 180 mg/dL. Specimen Anatomical Collection Method / Collection Time Recei shahid Time (Source) Location / Volume Laterality Blood Venipuncture 10/02/2021 8:22 10/02/2021 8 :33 Butterfly / Unknown AM PRESS SECRETARY AM PRESS SECRETARY Keyla Gilbert APRN, KORIN LAB_1 Performing Organization Address City/State/ZIP Code Phon e Number [address] [address] (ABNORMAL) Complete Blood Count-No Diff (10/02/2021 8:22 AM [facility]) Analysis Performed At Patho logist Time Signature WBC 7.5 3.5 - 10.5 10/02/2021 [facility] x10(9)/L 9:19 AM [facility] RBC 2.41 (L) 4.32 - 10/02/2021 [facility] 5.72 9:19 AM [facility] x10(12)/L Hemoglobin 5.6 (LL) 13.5 - 10/02/2021 [facility] 17.5 g/dL 9:19 AM [facility] HCT 19.3 (L) 38.8 - 10/02/2021 [facility] 50.0 % 9:19 AM [facility] MCV 80.1 80.0 - 10/02/2021 [facility] 100.0 fL 9:19 AM [facility] MCH 23.2 (L) 27.6 - 10/02/2021 [facility] 33.3 pg 9:19 AM [facility] MCHC 29.0 (L) 31.5 - 10/02/2021 [facility] 35.2 g/dL 9:19 AM [facility] RDW 17.2 (H) 11.9 - 10/02/2021 [facility] 15.5 % 9:19 AM [facility] Platelets 130 (L) 150 - 450 10/02/2021 [facility] x10(9)/L 9:19 AM [facility] Automated NRBC 0 <=0 /100 10/02/2021 [facility] WBC 9:19 AM [facility] Specimen Anatomical Collection Method / Collection Time Recei shahid Time (Source) Location / Volume Laterality Blood Venipuncture 10/02/2021 8:22 10/02/2021 8 :33 Butterfly / Unknown AM PRESS SECRETARY AM PRESS SECRETARY Keyla Gilbert APRN, CNP LAB_1 Performing Organization Address [facility]/ZIP [facility] Phon e Number [address] [address] Intact PTH (10/02/2021 8:22 AM PRESS SECRETARY) P athologist Signature Intact PTH 96 10 - 100 10/02/2021 [facility] pg/mL 9:37 AM PRESS SECRETARY HOSPITAL Specimen Anatomical Collection Method / Collection Time Recei shahid Time (Source) Location / Volume Laterality Blood Venipuncture 10/02/2021 8:22 10/02/2021 8 :33 Butterfly / Unknown AM PRESS SECRETARY AM PRESS SECRETARY Keyla Gilbert APRN, CNP LAB_1 Performing Organization Address [facility] e Number [address] [address] Glucose, Whole Blood POCT (10/01/2021 3:00 PM PRESS SECRETARY) [facility] gist Method Time Signature Glucose, Whole 166 70 - 180 10/01/2021 [facility] Blood mg/dL 3:01 PM PRESS SECRETARY HOSPITAL POCT Comment 1 MD Notified 10/01/2021 [facility] 3:01 PM PRESS SECRETARY HOSPITAL Performing [facility] PACU 10/01/2021 [facility] Location 3:01 PM [facility] Specimen Anatomical Collection Method Collection Time Receive d Time (Source) Location / / Volume Laterality Blood 10/01/2021 3:00 PM 3:01 PRESS SECRETARY PM PRESS SECRETARY Martha Gottlieb MD LAB_1 Performing Organization Address [facility]/ZIP [facility] Phon e Number [address] [address] XR C-Arm 3.5-4 Hours (10/01/2021 2:11 PM PRESS SECRETARY) Anatomical Region Laterality Modality X-Ray Angiography Specimen (Source) Anatomical Location Collection Method / Collectio n Time Received Time / Laterality Volume Narrative 10/01/2021 2:12 PM PRESS SECRETARY Fluoroscopy provided by a 3d technologist. Exact fluoroscopy time is documented in end of exam information in EPIC Martha Gottlieb MD RAD GD (ABNORMAL) Hemoglobin, Measured POCT (10/01/2021 10:52 AM PRESS SECRETARY) Analysis Performed At [facility] logist Time Signature Hemoglobin 8.5 (L) 13.5 - 10/03/2021 [facility] 17.5 g/dL 7:17 AM [facility] Performing [facility]CL[facility] OR 10/03/2021 [facility] Location 7:17 AM [facility] Specimen Anatomical Collection Method Collection Time Receive d Time (Source) Location / / Volume Laterality Blood 10/01/2021 10:52 10/03/2021 7:17 AM PRESS SECRETARY AM PRESS SECRETARY Martha Gottlieb MD LAB_1 Performing Organization Address City/[facility]/ZIP Code Phon e Number [address] [address] Glucose, Whole Blood POCT (10/01/2021 10:48 AM PRESS SECRETARY) [facility] gist Method Time Signature Glucose, Whole 103 70 - 180 10/01/2021 [facility] Blood mg/dL 10:50 AM [facility] POCT Comment 1 No Action 10/01/2021 [facility] Required 10:50 AM [facility] Performing RCLAB OR 10/01/2021 [facility] Location 10:50 AM [facility] Specimen Anatomical Collection Method Collection Time Receive d Time (Source) Location / / Volume Laterality Blood 10/01/2021 10:48 10/01/2021 AM PRESS SECRETARY 10:50 AM PRESS SECRETARY Martha Gottlieb MD LAB_1 Performing Organization Address City/[facility]/ZIP Code Phon e Number [address] [address] Glucose, Whole Blood POCT (10/01/2021 9:16 AM PRESS SECRETARY) [facility] gist Method Time Signature Glucose, Whole 106 70 - 180 10/01/2021 [facility] Blood mg/dL 9:17 AM [facility] Performing RCLAB SDS 10/01/2021 [facility] Location 9:17 AM PRESS SECRETARY [facility]OSPITAL Specimen Anatomical Collection Method Collection Time Receive d Time (Source) Location / / Volume Laterality Blood 10/01/2021 9:16 AM 9:17 PRESS SECRETARY AM PRESS SECRETARY Martha Gottlieb MD LAB_1 Performing Organization Address City/[facility] Health/ZIP Code Phon e Number [address] [address] Transfuse RBC (10/01/2021 8:38 AM PRESS SECRETARY) Josep Peck MD ET NURSING BLOOD ADMIN ECG 12-Lead Routine (Lab perform) (10/01/2021 6:20 AM PRESS SECRETARY) P athologist Signature EKG Completed 10/01/2021 [facility] 11:02 AM [facility] Specimen Anatomical Collection Method Collection Time Receive d Time (Source) Location / / Volume Laterality Other Specimen Non-blood 10/01/2021 6:20 AM 022 9:57 Type Collection / PRESS SECRETARY AM PRESS SECRETARY Unknown Óscar Simms DO LAB_1 Performing Organization Address City/State/ZIP Code Phon e Number [facility] [address] [place] [address] Ecg 12-Lead Routine (MUSE) (10/01/2021 6:14 AM PRESS SECRETARY) P athologist Signature Ventricular Rate 64 BPM [facility] Atrial Rate 64 BPM [facility] P-R Interval 448 ms [facility] QRS Duration 176 ms [facility] QT 466 ms [facility] QTc 480 ms [facility] R [place] -89 degrees [facility] T [place] 68 degrees [facility] Specimen (Source) Anatomical Collection Method Collection Time Re ceived Time Location / / Volume Laterality 10/01/2021 6:14 AM PRESS SECRETARY Narrative [facility] - 10/01/2021 2:40 PM PRESS SECRETARY Atrial-sensed ventricular-paced rhythm with prolonged AV conduction Abnormal ECG No previous ECGs available Confirmed by Pancho Dangelo ([id number]) on 10/01/19 2:40:30 PM Procedure Note Pancho Dangelo MD - 10/01/2021 Atrial-sensed ventricular-paced rhythm w ith prolonged AV conduction Abnormal ECG No previous ECGs available Confirmed by Pancho Dangelo ([id number]) on 10/01/19 2:40:30 PM Óscar Simms DO EKG Performing Organization Address City/[facility]/ZIP Code Phon e Number [facility] [address] [place] [id number] IV Insertion, LST Perform (10/01/2021 2:34 AM PRESS SECRETARY) P athologist Signature IV INSERTION, Done 10/01/2021 [facility] PERFORM 5:03 AM [facility] (LAB) Specimen Anatomical Collection Method / Collection Time Recei shahid Time (Source) Location / Volume Laterality Other Specimen Venipuncture 10/01/2021 2:34 10/01/2021 3:20 Type Butterfly / Unknown AM PRESS SECRETARY AM PRESS SECRETARY Josep Peck MD LAB_1 Performing Organization Address [facility] Phon e Number [address] [address] Prep RBC: , 2 Units (09/30/2021 11:01 PM PRESS SECRETARY) Component Value Ref Test Analysis Performed At [facility] Range Method Time Signature BLOOD PRODUCT [id number] [facility] CODE BLOOD BANK BLOOD UNIT NUMBER [id number] [facility] S BLOOD BANK CROSSMATCH Compatible [facility] INTERPRETATION BLOOD BANK BLOOD DISPENSE Transfused [facility] STATUS BLOOD BANK Unit Expiration [facility] Date BLOOD BANK UNIT BT BARCODE 6200 [facility] PRODUCT VOL ML 400 [facility] CODING SYSTEM ISBT [facility] PRODUCT RBC LR [facility] B[facility]OD [facility] BLOOD PRODUCT [id number] [facility] CODE BLOOD BANK BLOOD UNIT NUMBER [id number] [facility] S BLOOD BANK CROSSMATCH Compatible [facility] [...] / Volume Laterality Blood 09/30/2021 11:01 PM PRESS SECRETARY Josep Peck MD LAB_BLOOD PRODUCTS Performing Organization Address City/[facility] Phon e Number [facility] [address] [place] [phone] XR Femur Lt 2 Views Lower AP/Lat (09/30/2021 7:32 PM PRESS SECRETARY) Anatomical Region Laterality Modality Lower Extremity, Leg, Thigh Computed Rad iography Specimen (Source) Anatomical Collection Method Collection Time Re ceived Time Location / / Volume Laterality 09/30/2021 7:32 PM PRESS SECRETARY Narrative 09/30/2021 7:41 PM PRESS SECRETARY EXAM: XR FEMUR LT 2 VIEWS LOWER AP/LAT LOCATION: [facility] DATE/TIME: 09/30/2021 7:32 PM INDICATION: Left [...] Knee Lt 2 Views (09/30/2021 7:32 PM PRESS SECRETARY) Anatomical Region Laterality Modality Lower Extremity, Knee Computed Radiograp hy Specimen (Source) Anatomical Collection Method Collection Time Re ceived Time Location / / Volume Laterality 09/30/2021 7:32 PM PRESS SECRETARY Narrative 09/30/2021 7:38 PM PRESS SECRETARY EXAM: XR KNEE LT 2 VIEWS LOCATION: [...] W AP/Lat Hip Lt (09/30/2021 7:32 PM PRESS SECRETARY) Anatomical Region Laterality Modality Pelvis, Hip Computed Radiography Specimen (Source) Anatomical Collection Method Collection Time Re ceived Time Location / / Volume Laterality 09/30/2021 7:32 PM PRESS SECRETARY Narrative 09/30/2021 7:41 PM PRESS SECRETARY EXAM: XR PELVIS AP W AP/LAT HIP LT LOCATION: [facility] DATE/TIME: 09/30/2021 7:32 PM INDICATION: Left [...] PELVIS AP W AP/LAT HIP LT LOCATION: [facility] DATE/TIME: 09/30/2021 7:32 PM INDICATION: Left [...] RAD GD (ABNORMAL) Ferritin (09/30/2021 7:02 PM PRESS SECRETARY) P athologist Signature Ferritin 13 (L) 22 - 275 09/30/2021 [facility] ng/mL 10:48 PM [facility] Specimen Anatomical Collection Method / Collection Time Recei shahid Time (Source) Location / Volume Laterality Blood Venipuncture / 09/30/2021 7:02 09/30/2021 7:07 Unknown PM PRESS SECRETARY PM PRESS SECRETARY Ted Burdick MD LAB_1 Performing Organization Address City/State/ZIP Code Phon e Number [address] [address] (ABNORMAL) Iron Profile (Iron,TIBC,%Sat.(Calc)) (09/30/2021 7:02 PM PRESS SECRETARY) [facility] Method Time Signature Iron 14 (L) 65 - 175 09/30/2021 [facility] mcg/dL 10:41 PM HOSPITAL PRESS SECRETARY Transferrin 324 174 - 364 09/30/2021 [facility] mg/dL 10:41 PM HOSPITAL PRESS SECRETARY TIBC, Calculated 405 240 - 450 09/30/2021 [facility] mcg/dL 10:41 PM HOSPITAL PRESS SECRETARY % Saturation, 3 (L) 10 - 50 % 09/30/2021 [facility] Calculated 10:41 PM HOSPITAL PRESS SECRETARY TIBC Low iron, 09/30/2021 [facility] Interpretation normal TIBC, 10:41 PM HOSPITAL possible PRESS SECRETARY iron deficiency. Specimen Anatomical Collection Method / Collection Time Recei shahid Time (Source) Location / Volume Laterality Blood Venipuncture / 09/30/2021 7:02 09/30/2021 7:07 Unknown PM PRESS SECRETARY PM PRESS SECRETARY Ted Burdick MD LAB_1 Performing Organization Address City/State/ZIP Code Phon e Number [address] [address] (ABNORMAL) Differential (09/30/2021 7:02 PM PRESS SECRETARY) [facility] Method Time Signature Polychromasia Slight (A) None Seen 09/30/2021 [facility] 7:42 PM [facility] RBC Morphology Reviewed 09/30/2021 [facility] 7:42 PM [facility] Platelet Estimate Adequate Adequate 09/30/2021 [facility] 7:42 PM [facility] Neutrophil 7.1 (H) 1.7 - 7.0 09/30/2021 [facility] Absolute 10(9)/L 7:42 PM [facility] Lymphocyte 0.5 (L) 1.0 - 4.8 09/30/2021 [facility] Absolute 10(9)/L 7:42 PM [facility] Monocytes 0.3 0.2 - 0.9 09/30/2021 [facility] Absolute 10(9)/L 7:42 PM [facility] Eosinophil 0.0 0.0 - 0.5 09/30/2021 [facility] Absolute 10(9)/L 7:42 PM [facility] Basophil Absolute 0.1 0.0 - 0.3 09/30/2021 [facility] 10(9)/L 7:42 PM [facility] Specimen Anatomical Collection Method / Collection Time Recei shahid Time (Source) Location / Volume Laterality Blood Venipuncture / 09/30/2021 7:02 09/30/2021 7:07 Unknown PM PRESS SECRETARY PM PRESS SECRETARY Jonah Nova MD LAB_1 Performing Organization Address [facility]/ZIP [facility] Phon e Number [address] [address] Blood Type second draw (09/30/2021 7:02 PM PRESS SECRETARY) P athologist Signature ABO A 09/30/2021 [facility] BLOOD 7:42 PM PRESS SECRETARY BANK RH Positive 09/30/2021 [facility] BLOOD 7:42 PM PRESS SECRETARY BANK Specimen Anatomical Collection Method / Collection Time Recei shahid Time (Source) Location / Volume Laterality Blood Venipuncture / 09/30/2021 7:02 09/30/2021 7:07 Unknown PM PRESS SECRETARY PM PRESS SECRETARY Eugenia Gupta MD LAB_1 Performing Organization Address [facility] Phon e Number [facility] [address] [place] [phone] (ABNORMAL) Complete Blood Count-W/Diff (09/30/2021 7:02 PM PRESS SECRETARY) Analysis Performed At Patho logist Time Signature WBC 8.0 3.5 - 10.5 09/30/2021 [facility] x10(9)/L 7:42 PM [facility] RBC 2.68 (L) 4.32 - 09/30/2021 [facility] 5.72 7:42 PM [facility] x10(12)/L Hemoglobin 6.0 (LL) 13.5 - 09/30/2021 [facility] 17.5 g/dL 7:42 PM [facility] HCT 20.8 (L) 38.8 - 09/30/2021 [facility] 50.0 % 7:42 PM [facility] MCV 77.6 (L) 80.0 - 09/30/2021 [facility] 100.0 fL 7:42 PM [facility] MCH 22.4 (L) 27.6 - 09/30/2021 [facility] 33.3 pg 7:42 PM [facility] MCHC 28.8 (L) 31.5 - 09/30/2021 [facility] 35.2 g/dL 7:42 PM [facility] RDW 17.5 (H) 11.9 - 09/30/2021 [facility] 15.5 % 7:42 PM [facility] Platelets 151 150 - 450 09/30/2021 [facility] x10(9)/L 7:42 PM [facility] Automated NRBC 0 <=0 /100 09/30/2021 [facility] WBC 7:42 PM [facility] Specimen Anatomical Collection Method / Collection Time Recei shahid Time (Source) Location / Volume Laterality Blood Venipuncture / 09/30/2021 7:02 09/30/2021 7:07 Unknown PM PRESS SECRETARY PM PRESS SECRETARY Jonah Nova MD LAB_1 Performing Organization Address City/State/ZIP Code Phon e Number [address] [address] (ABNORMAL) Basic Metabolic Panel (09/30/2021 7:02 PM [facility] P athologist Signature Sodium 136 136 - 145 09/30/2021 [facility] mmol/L 7:46 PM [facility] Potassium 4.0 3.5 - 5.1 09/30/2021 [facility] mmol/L 7:46 PM [facility] Chloride 104 98 - 109 09/30/2021 [facility] mmol/L 7:46 PM [facility] CO2 24 20 - 29 09/30/2021 [facility] mmol/L 7:46 PM [facility] Anion Gap 8 7 - 16 09/30/2021 [facility] mmol/L 7:46 PM [facility] Calcium 8.4 8.4 - 10.4 09/30/2021 [facility] mg/dL 7:46 PM [facility] BUN 26 7 - 26 09/30/2021 [facility] mg/dL 7:46 PM [facility] Creatinine 0.78 0.73 - 09/30/2021 [facility] 1.18 mg/dL 7:46 PM [facility] GFR, Estimated >60 >60 09/30/2021 [facility] mL/min/1.7 7:46 PM [facility] 3m2 Glucose 152 (H) 70 - 100 09/30/2021 [facility] mg/dL 7:46 PM [facility] Comment: The given reference range is fo r the fasting state. Non-fasting reference range for glucose is 70 - 180 mg/dL. Specimen Anatomical Collection Method / Collection Time Recei shahid Time (Source) Location / Volume Laterality Blood Venipuncture / 09/30/2021 7:02 09/30/2021 7:07 Unknown PM PRESS SECRETARY PM PRESS SECRETARY Jonah Nova MD LAB_1 Performing Organization Address [facility] Phon e Number [address] [address] Blood Smear Review (Lab Use Only) (09/30/2021 6:27 PM PRESS SECRETARY) Patholo gist Method Time Signature Path Review Special heme 10/01/2021 [facility] tech 11:24 AM [facility] performed slide review Path Review Hgb low 10/01/2021 [facility] Reason 11:24 AM [facility] Specimen Anatomical Collection Method / Collection Time Recei shahid Time (Source) Location / Volume Laterality Blood Venipuncture / 09/30/2021 6:27 09/30/2021 6:47 Unknown PM PRESS SECRETARY PM PRESS SECRETARY Jonah Nova MD LAB_1 Performing Organization Address [facility] Phon e Number [address] [address] (ABNORMAL) Hemoglobin, Blood (09/30/2021 6:27 PM PRESS SECRETARY) P athologist Signature Hemoglobin 5.8 (LL) 13.5 - 17.5 09/30/2021 [facility] g/dL 7:12 PM [facility] Specimen Anatomical Collection Method / Collection Time Recei shahid Time (Source) Location / Volume Laterality Blood Venipuncture / 09/30/2021 6:27 09/30/2021 6:47 Unknown PM PRESS SECRETARY PM PRESS SECRETARY Jonah Nova MD LAB_1 Performing Organization Address [facility] Phon e Number [address] [address] INR/Protime (09/30/2021 6:27 PM PRESS SECRETARY) P athologist Signature Protime 13.6 11.8 - 14.6 09/30/2021 [facility] Seconds 7:03 PM [facility] INR 1.1 0.9 - 1.1 09/30/2021 [facility] 7:03 PM [facility] Specimen Anatomical Collection Method / Collection Time Recei shahid Time (Source) Location / Volume Laterality Blood Venipuncture / 09/30/2021 6:27 09/30/2021 6:47 Unknown PM PRESS SECRETARY PM PRESS SECRETARY [facility] - 09/30/2021 7:03 PM CS T Therapeutic range determined by protocol established by anticoagulation provider. Jonah Nova MD LAB_1 Performing Organization Address [facility] e Number [address] [address] APTT (Activated Partial Thromboplastin Time) (09/30/2021 6:27 PM PRESS SECRETARY) P athologist Signature APTT 31.7 22.5 - 36.5 09/30/2021 [facility] Seconds 7:03 PM [facility] Specimen Anatomical Collection Method / Collection Time Recei shahid Time (Source) Location / Volume Laterality Blood Venipuncture / 09/30/2021 6:27 09/30/2021 6:47 Unknown PM PRESS SECRETARY PM PRESS SECRETARY Jonah Nova MD LAB_1 Performing Organization Address [facility] [address] [address] Antibody Screen (09/30/2021 6:27 PM PRESS SECRETARY) Patholo gist Method Time Signature Antibody Screen Negative 09/30/2021 [facility] BLOOD Interpretation 7:35 PM [facility] SECR[facility] BANK Specimen Anatomical Collection Method / Collection Time Recei shahid Time (Source) Location / Volume Laterality Blood Venipuncture / 09/30/2021 6:27 09/30/2021 6:46 Unknown PM PRESS SECRETARY PM PRESS SECRETARY Jonah Nova MD LAB_1 Performing Organization Address [facility] Phon e Number [facility] [address] [place] [address] Blood Type (09/30/2021 6:27 PM PRESS SECRETARY) P athologist Signature ABO A 09/30/2021 [facility] BLOOD 7:23 PM PRESS SECR[facility]ARY BANK RH Positive 09/30/2021 [facility] BLOOD 7:23 PM PRESS SECRETARY BANK Specimen Anatomical Collection Method / Collection Time Recei shahid Time (Source) Location / Volume Laterality Blood Venipuncture / 09/30/2021 6:27 09/30/2021 6:46 Unknown PM PRESS SECRETARY PM PRESS SECRETARY Jonah Nova MD LAB_1 Performing Organization Address [facility] Phon e Number [facility] [address] [place] [address] documented in this encounter Visit Diagnoses Diagnosis [...] not set up. Will try again later S SECRETARY Plan of Care - Brenda Bar RN - 10/03/2021 3:24 PM CST [facility] Discharge Note - Nursing Admission Date/Time: 09/30/2021 5:33 PM Attending MD: Martha Gottlieb MD Patient discharged: to Home. Discharge Date: 10/03/2021 Discharge Time: 3:24 PM Patient accompanied by: self and river transportation worker (TSI). Transported by: Wheelchair Valuables were taken [...] stored: Yes --- End of Report --- S SECRETARY Plan of Care - Afshan Guajardo RN - 10/03/2021 3:09 PM CST I completed a full assessment and assessments as ordered and per policy on this patient during my work shift. Reassessments completed during my work shift are unchanged unless documented. S SECRETARY Plan of Care - Dilcia Barr RN - 10/03/2021 2:02 PM CST [facility] Care Management Discharge Note Discharge Information: Expected [...] to shower in basement) Contacts: Emergency Contacts Serologist (Rel.) Home Phone Work Phone Mobile Phone Magali Luna (Spouse) [phone] -- -- Decline,Pt 03/23/2018 -- -- -- [...] Additional Comments: Case discussed in care rounds. Way Inspector was notified that patient needing assistance with transportation home. I met with patient, he is needing a wheelchair ride home today. His will be home when he arrives but she is unable to drive. He has a ramp to enter the home and has [employer] PMAP. Ride re quested and obtained for 1415. PT recommending outpatient PT, pt prefers to go to [facility] for outpatient PT. Paged ortho sports intern and obtained order which I printed and gave to the patient and instructed him to call [facility] and they will want him to bring printed order to appt. Dilcia Barr RN S SECRETARY Plan of Care - Linda Longo RN - 10/03/2021 7:28 AM CST I completed a full assessment and assessments as ordered and per policy on this patient during my work shift. Reassessments completed during my work shift are unchanged unless documented. S SECRETARY Plan of Care - Brenda Bar RN [...] my work shift are unchanged unless documented. S SECRETARY Plan of Care - Kera Reeder RN - 10/02/2021 2:58 PM CST I completed a full assessment and assessments as ordered on this patient during my work shift. Reassessments completed during my work shift are unchanged unless documented. S SECRETARY Plan of Care - Sommer Lowery RN - 10/02/2021 1:16 AM CST [facility] Plan of Care Note Assessment: [...] unless documented. --- End of Report --- S SECRETARY Plan of Care - Brenda Bar RN [...] willing to answer and let RN do. S SECRETARY Plan of Care - Josep Cervantse MD - 10/01/2021 6:15 PM CST Brief [...] to the patient and agreed upon by [facility] care team. Josep Cervantes MD Orthopaedic Surgery, PGY-2 Pager: [phone] S SECRETARY Plan of Care - Brenda Bar RN - 10/01/2021 5:06 PM CST [facility]. Practitioner Notified Note Name of Practitioner notified: Ortho consult Time of Practitioner notification: 5:08 PM Reason: E. Hol., 9633, Pt stating he will leave hospital without coming to floor. Not situationcan, security aware. Response: Ortho team coming up to talk to pt with security at bedside. Will notify pt at that time that is unable to come to floor. S SECRETARY Plan of Care - Estephania Mejia RN - 10/01/2021 2:19 PM CST [facility] Plan of Care Note Assessment: [...] unless documented. --- End of Report --- S SECRETARY Plan of Care - Ladan Najera RN - 10/01/2021 10:08 AM CST [facility]. Practitioner Notified Note Name of Practitioner notified: Dr Gottlieb Time of Practitioner notification: 10:08 AM Reason: Luna, Ed: Can you come back to patient in ST[facility] 2? Patient refusing blood products and needs to sign on consent. Thanks. Response: Will come see patient S SECRETARY Plan of Care - Estephania Mejia RN - 10/01/2021 9:04 AM CST [facility] Nursing Pre-Op Note Admission Date/Time: 09/30/2021 5:33 PM Time of transport to the Operating Room: 09 Transported by: Litter/cart Pre-Op checklist complete?: yes S SECRETARY Plan of Care - Diana Early RN - 10/01/2021 3:56 AM CST [facility] Plan of Care Note Assessment: [...] two providers. Concerned about heather communicable diseases. Aircraft Charter Dispatcher stated this may delay his surgery. Patient states that he was being forced to get blood. Aircraft Charter Dispatcher explained the safety concerns of low hemoglobin and surgery. Patient stated he did not want to talk about it anymore. Aboutan hour later patient stated that he would take the blood under protest. Aircraft Charter Dispatcher clarified that this meant he was consenting. Patient confirmed. Started transfusion of 2 units. I completed a full assessment and assessments as ordered and per policy on this patient during my work shift. Reassessments completed during my work shift are unchanged unless documented. --- End of Report --- S SECRETARY Plan of Care - Josep Cervantes MD [...] and that [facility] . I recognized that thepatient has reservations [...] health. He suggested that [facility] felt [facility]. He repeatedly statedthat the only circumstances under which he would be willing to receive blood is if I personally drafted a statement or letter that would allow him to yudi me personally, his nurse, and [facility] if he received any sort of blood borne illness from a transfusion. I explained that [facility] does not have such statements. Ultimately, [...] the medicine cross cover team accordingly. Josep eCrvantes MD Orthopaedic Surgery, PGY-2 Pager: [phone] S SECRETARY Triage Assessment Note - Yari Adams RN - 09/30/2021 5:35 PM PRESS SECRETARY Patient arrived by [facility] from Hospital with chief complaint: Femur fracture Symptoms/background (EMS narrative): Pt. Was at home and slipped on the ice and fell on the left knee. CMS intact. Leg was splinted at [facility]. Has been given dilaudid for pain. Interventions/abnormal vitals: VSS. 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 S SECRETARY documented in this encounter Admitting Diagnoses Diagnosis [...] chewable tablet Given 10/03/2021 9:32 A M PRESS SECRETARY 1,000 mg 500-1,000 mg 500-1,000 mg, Oral, QID PRN, Heartburn, Dyspepsia, Starting on Thu09/30/21 at 2142, Until Thu10/03/21 at 1754, Each tablet provides 200 mg elemental calcium Given 10/02/2021 7:13 PM PRESS SECRETARY 1,000 mg Given 10/02/2021 2:30 PM PRESS SECRETARY 1,000 mg dextrose (D50) injection 25 g [...] tablet 500 mg Given 09/30/2021 10:35 PM PRESS SECRETARY 500 mg 500 mg, Oral, Q6H PRN, [...] immediate release tablet Given 10/03/2021 2:44 PM PRESS SECRETARY 5 mg 5-10 mg 5-10 mg, Oral, Q4H PRN, Pain, Starting on Thu09/30/21 at 2142, Until Ruth 10/03/21 at 1754, Give PO opioid if able to take PO and pain not well controlled with other medications or interventions. Given 10/03/2021 9:32 AM PRESS SECRETARY 10 mg Given 10/02/2021 11:09 AM PRESS SECRETARY 5 mg polyethylene glycol (MIRALAX) oral powde [...] Recently Administered Medications Times are shown in PRESS SECRETARY. Scheduled Medication Order 10/01/2021 10/02/2021 10/03/2021 acetaminophen [...] 1030 (Given - Provider: Pooja Whitlock APRN, SYSTEM AUDITOR) 2 g, Intravenous, Administer over 30 Min [...] 1036 (Given - Provider: Pooja Simmons APRN, LUZMA) [...] 1251 (Infused - Provider: Pooja Quinn APRN, LUZMA)1303 (Restarted - Provider: Pooja Whitlock APRN, LUZMA)1351 (Started - Provider: Pooja Whitlock APRN, LUZMA)1359 (Anesthesia Fluid - Provider: Pooja Whitlock APRN, LUZMA) 1441 (Infused - Provider: Pooja Whitlock APRN, LUZMA) PRN Medication Order 10/01/2021 10/02/2021 10/03/2021 benzocaine-menthol [...] Bar, SIMEON) 0932 (Given - Provider: Afshan Guajardo, SIMEON) 500-1,000 mg, Oral, QID PRN, Heartburn, Dyspepsia, [...] (CANCELED) 15 12 (Given - Provider: Anika Lazo, SIMEON)1520 (Given - Provider: Anika Lazo, RN)1535 (Given - Provider: Anika Laoz, SIMEON) 25-50 mcg, Intravenous, [id number], Pain, Starting on Thu10/01/21 at 1412, Until Thu10/01/21 at 1624, PACU USE ONLY 25 mcg IV q5min prn based on the patient's pain scale rating for mild to moderate pain ( 1 to 5). 50 mcg IV q5min prn based on th e patient's pain scale rating for moderate [...] stool in the last day, Starting on 09/30/21 at 2142, Until Thu10/03/21 at 1754
Cumulative [...] at 2142, Until Ruth 10/03/21 at 1754
Cumulative bowel medication orders. If [...] at 2142, Until Ruth 10/03/21 at 1754
Cumulative bowel medication orders. If [...] Nausea/Vomiting. documented in this encounter Care Teams Gymnastics Instructor Relationship Specialty Start Date End Date Kevin Cobb MD PCP - General Family Practice 09/30/21 documented as of this encounter
--- OUTSIDE RECORDS SUMMARY | 2022-08-05 10:33 | XMS_ITS | Encounter Summary ---
:1960 Author Organization [facility] Address [address], [place] [address] Care Team Providers Name Role Phone Cintia Cobb MD Primary Care Provider [phone] Reason for Visit Auth/Cert Specialty Diagnoses / [...] Expiration Date Visits Requ ested Visits Authorized [id number] 1 1 Encounter Details Date Type Department Care Team Description 09/30/2021 Ancillary Procedure [facility] [address] [place] [id number] Social History Tobacco Use Types Packs/Day Years [...] Description 09/15/2022 Appointment Orthopedics Delgado Gottlieb MD [address] [place] [phone] (Wo rk) 10/08/2022 Appointment Orthopedics Delgado Gottlieb MD [address] [place], [place] [phone] (Gavi rk) 05/27/2023 Appointment Chemo Therapy/Infusion Services documented as of this encounter Procedures Procedure Name Priority Date/Time Associated Diagnosis Comme nts XR FEMUR LT 2 VIEWS STAT 09/30/2021 7:32 PM Re sults for this LOWER AP/LAT TILE SETTER SUPERVISOR procedure are i n the results section. XR KNEE LT 2 VIEWS STAT 09/30/2021 7:32 PM Res ults for this TILE SETTER SUPERVISOR procedure are i n the results section. XR PELVIS AP W STAT 09/30/2021 7:32 PM Results for this AP/LAT HIP LT TILE SETTER SUPERVISOR procedure are in the results section. documented in this encounter Results XR Femur Lt 2 Views Lower AP/Lat (09/30/2021 7:32 PM TILE SETTER SUPERVISOR) Anatomical Region Laterality Modality Lower Extremity, Leg, Thigh Computed Rad iography Specimen (Source) Anatomical Collection Method Collection Time Re ceived Time Location / / Volume Laterality 09/30/2021 7:32 PM TILE SETTER SUPERVISOR Narrative 09/30/2021 7:41 PM TILE SETTER SUPERVISOR EXAM: XR FEMUR LT 2 VIEWS LOWER AP/LAT LOCATION: [facility] DATE/TIME: 09/30/2021 7:32 PM INDICATION: Left [...] FEMUR LT 2 VIEWS LOWER AP/LAT LOCATION: [facility] DATE/TIME: 09/30/2021 7:32 PM INDICATION: Left [...] Knee Lt 2 Views (09/30/2021 7:32 PM TILE SETTER SUPERVISOR) Anatomical Region Laterality Modality Lower Extremity, Knee Computed Radiograp hy Specimen (Source) Anatomical Collection Method Collection Time Re ceived Time Location / / Volume Laterality 09/30/2021 7:32 PM TILE SETTER SUPERVISOR Narrative 09/30/2021 7:38 PM TILE SETTER SUPERVISOR EXAM: XR KNEE LT 2 VIEWS LOCATION: [...] W AP/Lat Hip Lt (09/30/2021 7:32 PM TILE SETTER SUPERVISOR) Anatomical Region Laterality Modality Pelvis, Hip Computed Radiography Specimen (Source) Anatomical Collection Method Collection Time Re ceived Time Location / / Volume Laterality 09/30/2021 7:32 PM TILE SETTER SUPERVISOR Narrative 09/30/2021 7:41 PM TILE SETTER SUPERVISOR EXAM: XR PELVIS AP W AP/LAT HIP [...] PELVIS AP W AP/LAT HIP LT LOCATION: [facility] DATE/TIME: 09/30/2021 7:32 PM INDICATION: Left [...] on filedocumented in this encounter Care Teams Stoker Erector And Servicer Relationship Specialty Start Date End Date Cintia Cobb MD PCP - General Family Practice 09/30/21 documented as of this encounter
--- OUTSIDE RECORDS SUMMARY | 2022-08-05 10:33 | XMS_ITS | Encounter Summary ---
:1960 Author Organization [facility] Address [address] [place] [address] Care Team Providers Name Role Phone Cintia Cobb MD Primary Care Provider [phone] Encounter Details Date Type Department Care Team Description 09/30/2021 Orders Only HIM DEPARTMENT Provider, Aguilar hernandez [place] [address] Social History Tobacco Use Types Packs/Day Years [...] 09/15/2022 Appointment Orthopedics Delgado Gottlieb MD [address] [place], [place] [phone] (Gavi presley) 10/08/2022 Appointment Orthopedics Delgado Gottlieb MD [address] [place] [address] (Gavi presley) 05/27/2023 Appointment [...] filedocumented in this encounter Care Teams Manager Rfid Relationship Specialty Start Date End Date Cintia Cobb MD PCP - General Family Practice 09/30/21 documented as of this encounter
--- OUTSIDE RECORDS SUMMARY | 2022-08-05 10:33 | XMS_ITS | Encounter Summary ---
:1960 Author Organization [facility] Address [address] [address] Care Team Providers Name Role Phone Ladan Song MD Primary Care Provider Unavailable Reason for Referral Procedure/Equipment (Routine) - Closed Specialty Diagnoses / Procedures Referred By Contact Refer red To Contact Diagnoses Spinal stenosis of lumbar region with neurogenic claudication Cesar Scherer MD Procedures CT Lumbar Spine Post Myelogram [address] [facility] [address] [place] [address] Referral ID Status Reason Start Date Expiration Date Visits Requ ested Visits Authorized [id number] Closed 03/12/2021 06/11/2022 1 1 Procedure/Equipment (Routine) - Incomplete Specialty Diagnoses / Procedures Referred By Contact Refer red To Contact Diagnoses Spinal stenosis of lumbar region with neurogenic claudication Cesar Scherer MD Procedures [place] Myelogram Lumbar Spine [address] [facility] [address] [place] [address] Referral ID Status Reason Start Date Expiration Date Visits V isits Requested Authorized [id number] Incomplete 03/12/2021 06/11/2022 1 1 Encounter Details Date Type Department Care Team Description 03/27/2021 Hospital Encounter [place] [address] [place] [address] Spinal stenosis of Center Procedural Edward Ardon MD [address] [place] [address] lumbar region with Area neurogenic [address] [place], [place] [id number] Social History Tobacco Use Types Packs/Day Years [...] in 24 hours cyanocobalamin 3 10/28/2016 06/26/2021 ([id number]) 1000 MCG/ML injection DULoxetine (CYMBALTA) Take 20 [...] Description 09/15/2022 Appointment Orthopedics Delgado Gottlieb MD [address] [place] [phone] (Gavi presley) 10/08/2022 Appointment Orthopedics Delgado Gottlieb MD [address] [place] [phone] (Gavi presley) 05/27/2023 Appointment Chemo [...] the postprocedural suite. Cesar Scherer MD RAD FL documented in [...] (Given - Provider: Edna Vizcaino - Comment: [facility] [id number]) 10 mL, Intrathecal, ONCE, On Thu03/27/21 at 0945, For 1 dose, Ra diology documented in this encounter Care Teams Help Desk Internship Relationship Specialty Start Date End Date Ladan Song MD PCP - General Internal Medicine 08/18/17 09/29/21 documented as of this encounter
--- OUTSIDE RECORDS SUMMARY | 2022-08-05 10:33 | XMS_ITS | Encounter Summary ---
:1960 Author Organization [facility] Address [address] [place] [address] Care Team Providers Name Role Phone Ladan Song MD Primary Care Provider Unavailable Reason for Referral Procedure/Equipment (Routine) - Closed Specialty Diagnoses / Procedures Referred By Contact Refer red To Contact Diagnoses Spinal stenosis of lumbar region with neurogenic claudication Cesar Scherer MD Procedures CT Lumbar Spine Post Myelogram [address] [facility] [address] [place] [address] Referral ID Status Reason Start Date Expiration Date Visits Requ ested Visits Authorized [id number] Closed 03/12/2021 06/11/2022 1 1 Procedure/Equipment (Routine) - Incomplete Specialty Diagnoses / Procedures Referred By Contact Refer red To Contact Diagnoses Spinal stenosis of lumbar region with neurogenic claudication Cesar Scherer MD Procedures [place] Myelogram Lumbar Spine [address] [place] [address] [place] [address] Referral ID Status Reason Start Date Expiration Date Visits V isits Requested Authorized [id number] Incomplete 03/12/2021 06/11/2022 1 1 Reason for Visit Reason Comments QUESTIONS, GENERAL Encounter Details Date Type Department Care Team Description 03/12/2021 Telephone [facility] Cesar Champagne, QUESTIONS, GENERAL [address] [facility] [place], [place] [address] [address] [facility] [phone] [address] [place] [address] (Wo rk) Social History Tobacco Use Types [...] At this point, Dr. Scherer along with Jeremy and his I had a lengthy discussion in regard to the options moving forward. At the end of our lengthy discussion, we did recommend a left L3-4 transforaminal injection here at [facility]. If this is not therapeutically beneficial for [...] Description 09/15/2022 Appointment Orthopedics Delgado Gottlieb MD [address] [place] [phone] (Gavi presley) 10/08/2022 Appointment Orthopedics Delgado Gottlieb MD [address] [place] [phone] (Gavi presley) 05/27/2023 Appointment Chemo [...] claudication documented in this encounter Care Teams Doweling Machine Operator Relationship Specialty Start Date End Date Ladan Song MD PCP - General Internal Medicine 08/18/17 09/29/21 documented as of this encounter
--- OUTSIDE RECORDS SUMMARY | 2022-08-05 10:33 | XMS_ITS | Encounter Summary ---
:1960 Author Organization [facility] Address [address] [place] [address] Care Team Providers Name Role Phone Cintia Cobb MD Primary Care Provider [phone] Encounter Details Date Type Department Care Team Description 09/30/2021 Partner ED HIM DEPARTMENT Provider, Aguilar hernandez MD [facility] 09/30/2021 [place] [address] Social History Tobacco Use Types Packs/Day Years [...] 09/15/2022 Appointment Orthopedics Delgado Gottlieb MD [address] [place], [place] [address] (Gavi presley) 10/08/2022 Appointment Orthopedics Delgado Gottlieb MD [address] [place], [place] [address] (Gavi presley) 05/27/2023 Appointment Chemo Therapy/Infusion Services documented as of this encounter Visit Diagnoses Not on filedocumented in this encounter Care Teams Hose Stripper Relationship Specialty Start Date End Date Cintia Cobb MD PCP - General Family Practice 09/30/21 documented as of this encounter
--- OUTSIDE RECORDS SUMMARY | 2022-08-05 10:33 | XMS_ITS | Encounter Summary ---
:1960 Author Organization [facility] Address [address] [place] [address] Care Team Providers Name Role Phone Ladan Song MD Primary Care Provider Unavailable Reason for Visit Reason Comments Symptoms Encounter Details Date Type Department Care Team Description 09/09/2021 Telephone [facility] Cesar Champagne MD Symptoms [address] [facility] [address] [facility] [address] [facility] [address] [place], [place] [address] [place], [place] [phone] [address] (Wo rk) Social History Tobacco Use [...] to also reach out to Jackie at [facility] as well. Symptoms were also discussed. N RELATIONS TEACHER Mehreen Bolton, RN - 09/09/2021 11:26 AM CST Called pt to review symptoms. No answer. LVM to call back to [facility] for any questions related to symptoms or repeat injection. If wanted to schedule surgery call Sp[facility] - see number listed below. N RELATIONS TEACHER Lesli Motley - 09/09/2021 9:10 AM CST Yarelis at [facility] asked for a nurse to call this patient regarding his symptoms. Symptoms are getting worse, he is falling and legs are buckling. [facility] does have insurance approval to book surgery and if he is ready to book he can call Jackie at [phone]. N RELATIONS TEACHER documented in this encounter Plan of Treatment Upcoming Encounters Date Type Specialty Care Team Description 09/15/2022 Appointment Orthopedics Delgado Gottlieb MD [address] [place], [place] [address] (Gavi presley) 10/08/2022 Appointment Orthopedics Delgado Gottlieb MD [address] [place], [place] [address] (Gavi presley) 05/27/2023 Appointment Chemo Therapy/Infusion Services documented as of this encounter Visit Diagnoses Not on filedocumented in this encounter Care Teams Research Instructor Relationship Specialty Start Date End Date Ladan Song MD PCP - General Internal Medicine 08/18/17 09/29/21 documented as of this encounter
--- OUTSIDE RECORDS SUMMARY | 2022-08-05 10:33 | XMS_ITS | Encounter Summary ---
:1960 Author Organization [facility] Address [address] [place] [address] Care Team Providers Name Role Phone Ladan Song MD Primary Care Provider Unavailable Reason for Visit Reason Comments CANCEL APPOINTMENT 04/19 due to provider emergen cy Encounter Details Date Type Department Care Team Description 04/19/2021 Telephone [facility] Freddy Delgado, [facility] (04/19 due to provider [address] [facility] [address] [facility] emergency) [place], [place] [address] [place], [place] [phone] (Wo rk) Social History Tobacco Use Types [...] and trouble getting in contact with this show card writer after missed calls from [facility]. Spoke with [...] next day Dr. Scherer is back at [facility]. Lesli Motley - 04/19/2021 1:49 PM CDT [...] can be seen sooner for a 7 0 am.Please call at [phone] Future Appointments Date Time Provider Department Center 05/17/2021 3:00 PM Freddy Delgado PA-C [facility] Lesli Motley - 04/19/2021 11:17 AM CDT Received an urgent message from Didier Delgado PA-C that he has to leave [facility] as he has a family emergency. Called [...] Description 09/15/2022 Appointment Orthopedics Delgado Gottlieb MD [address] [place] [phone] (Gavi presley) 10/08/2022 Appointment Orthopedics Delgado Gottlieb MD [address] [place] [phone] (Gavi presley) 05/27/2023 Appointment Chemo Therapy/Infusion Services documented as of this encounter Visit Diagnoses Not on filedocumented in this encounter Care Teams Dietetic Intern Relationship Specialty Start Date End Date Ladan Song MD PCP - General Internal Medicine 08/18/17 09/29/21 documented as of this encounter
--- OUTSIDE RECORDS SUMMARY | 2022-08-05 10:33 | XMS_ITS | Encounter Summary ---
:1960 Author Organization [employer] Address [address] [place] [address] Care Team Providers Name Role Phone Ladan Song MD Primary Care Provider Unavailable Reason for Visit Reason Comments Phone Call From Patient Encounter Details Date Type Department Care Team Description 01/29/2021 Telephone [facility] Cesar Champagne Phone Call From Patient [address] [facility] MD [place]ri [place], [place] [address] [address] [phone] [place] [address] Social History Tobacco Use Types Packs/Day [...] 09/15/2022 Appointment Orthopedics Delgado Gottlieb MD [address] [place], [place] [address] (Gavi presley) 10/08/2022 Appointment Orthopedics Delgado Gottlieb MD [address] [place], [place] [address] (Gavi presely) 05/27/2023 Appointment Chemo Therapy/Infusion Services documented as of this encounter Visit Diagnoses Not on filedocumented in this encounter Care Teams Wordpress Developer Relationship Specialty Start Date End Date Ladan Song MD PCP - General Internal Medicine 08/18/17 09/29/21 documented as of this encounter
--- OUTSIDE RECORDS SUMMARY | 2022-08-05 10:33 | XMS_ITS | Encounter Summary ---
:1960 Author Organization [facility] [employer] Address [address] [place] [address] Care Team Providers Name Role Phone Cintia Cobb MD Primary Care Provider [phone] Encounter Details Date Type Department Care Team Description 09/18/2021 Notes/Orders [facility] Cesar Champagne, [address] [place], [place] [address] [address] [place] [address] [place] [address] (Gavi rk) Social History Tobacco [...] Description 09/15/2022 Appointment Orthopedics Delgado Gottlieb MD [address] [place] [phone] (Gavi rk) 10/08/2022 Appointment Orthopedics Delgado Gottlieb MD [address] [place] [phone] (Wo rk) 05/27/2023 Appointment Chemo Therapy/Infusion Services documented as of this encounter Visit Diagnoses Not on filedocumented in this encounter Care Teams Manager Restaurant Relationship Specialty Start Date End Date Cintia Cobb MD PCP - General Family Practice 09/30/21 documented as of this encounter
--- OUTSIDE RECORDS SUMMARY | 2022-08-05 10:33 | XMS_ITS | Encounter Summary ---
:1960 Author Organization [facility] Address [address] [place] [address] Care Team Providers Name Role Phone Ladan Song MD Primary Care Provider Unavailable Reason for Visit Reason Comments NURSE PREP FOR PROCEDURE Encounter Details Date Type Department Care Team Description 03/25/2021 Telephone [facility] MRI Crystal Olsen, NURSE PREP FOR PROCEDURE [address] RN [place], [place] [phone] Social History Tobacco Use Types Packs/Day Years [...] called with instructions for Myelogram scheduled 03/27/2021 *Reimbursement Director can park in the Blue Ramp and bring in parking ticket OR oil truck driver can drop pt off at front door *Take elevator to 2nd floor C to check in by 0730 (1 hour [...] at home *Need to have an Adult oil truck driver (No public transportation unless accompanied by responsible adult) *Need an adult at home with you for 12 hours after procedure (only if cervical). *Call [phone] if have questions documented in this encounter Plan of Treatment Upcoming Encounters Date Type Specialty Care Team Description 09/15/2022 Appointment Orthopedics Delgado Gottlieb MD [address] [place], [place] [address] (Gavi presley) 10/08/2022 Appointment Orthopedics Delgado Gottlieb MD [address] [place], [place] [address] (Gavi presley) 05/27/2023 Appointment Chemo Therapy/Infusion Services documented as of this encounter Visit Diagnoses Not on filedocumented in this encounter Care Teams Builder Operator Relationship Specialty Start Date End Date Ladan Song MD PCP - General Internal Medicine 08/18/17 09/29/21 documented as of this encounter
--- OUTSIDE RECORDS SUMMARY | 2022-08-05 10:33 | XMS_ITS | Encounter Summary ---
:1960 Author Organization [facility] Address [address] [place] [address] Care Team Providers Name Role Phone Ladan Song MD Primary Care Provider Unavailable Reason for Visit Reason Comments QUESTIONS, GENERAL Surgery scheduling Encounter Details Date Type Department Care Team Description 07/29/2021 Telephone [facility] Cesar Champagne QUESTIONS, GENERAL [address] [facility] MD Terri (Surgery scheduling) [place] [phone] [phone] [place] [address] Social History Tobacco Use Types Packs/Day [...] surgery at may further discuss with his surgery scheduler Jackie as well (phone number left in ). NE STRUCTURAL DESIGNER Mandy Hinojosa - 07/29/2021 4:08 PM CST Use home number on file, it is his 's. His number doesn't have voicemail but hers does. NE STRUCTURAL DESIGNER Mandy Hinojosa - 07/29/2021 4:05 PM CST Patient was calling to talk about surgery scheduling. Cashiers Supervisor let him know order was being sent for authorization and that a line cleaner would be reaching out to him (see messages below). He wouldlike to have surgery done in [place] or somewhere close. Please reach out to patient to give him an update. NE STRUCTURAL DESIGNER documented in this encounter Plan of Treatment Upcoming Encounters Date Type Specialty Care Team Description 09/15/2022 Appointment Orthopedics Delgado Gottlieb MD [address] [place] [phone] (Gavi presley) 10/08/2022 Appointment Orthopedics Delgado Gottlieb MD [address] [place] [phone] (Gavi presley) 05/27/2023 Appointment Chemo Therapy/Infusion Services documented as of this encounter Visit Diagnoses Not on filedocumented in this encounter Care Teams Elevator Constructor Relationship Specialty Start Date End Date Ladan Song MD PCP - General Internal Medicine 08/18/17 09/29/21 documented as of this encounter
--- OUTSIDE RECORDS SUMMARY | 2022-08-05 10:33 | XMS_ITS | Encounter Summary ---
:1960 Author Organization [employer] Address [address] [place] [address] Care Team Providers Name Role Phone Cintia Cobb MD Primary Care Provider [phone] Encounter Details Date Type Department Care Team Description 09/23/2021 Notes/Orders [facility] Cesar Champagne, Acute pain [address] [place], [place] [address] [address] [address] [place] [address] (Gavi presley) Social History Tobacco [...] 09/15/2022 Appointment Orthopedics Delgado Gottlieb MD [address] [place] [phone] (Gavi rk) 10/08/2022 Appointment Orthopedics Delgado Gottlieb MD [address] [place] [phone] (Wo rk) 05/27/2023 Appointment Chemo Therapy/Infusion Services documented as of this encounter Visit Diagnoses Diagnosis Acute pain documented in this encounter Care Teams Pediatric Dental Assistant Relationship Specialty Start Date End Date Cintia Cobb MD PCP - General Family Practice 09/30/21 documented as of this encounter
--- OUTSIDE RECORDS SUMMARY | 2022-08-05 10:33 | XMS_ITS | Encounter Summary ---
:1960 Author Organization [facility] Address [address] [place] [address] Care Team Providers Name Role Phone Ladan Song MD Primary Care Provider Unavailable Reason for Visit Reason Comments Post Visit Follow Up Phone Call Encounter Details Date Type Department Care Team Description 06/27/2021 Telephone [facility] Lizeth Valentino Post Visit Follow Up 8[address] [facility] Yeni Dooley, SIMEON Phone Call [place], [place] [address] Social History Tobacco Use Types [...] 09/15/2022 Appointment Orthopedics Delgado Gottlieb MD [address] [place], [place] [address] (Gavi presley) 10/08/2022 Appointment Orthopedics Delgado Gottlieb MD [address] [place], [place] [address] (Gavi presley) 05/27/2023 Appointment Chemo Therapy/Infusion Services documented as of this encounter Visit Diagnoses Not on filedocumented in this encounter Care Teams Dairy Farmworker Relationship Specialty Start Date End Date Ladan Song MD PCP - General Internal Medicine 08/18/17 09/29/21 documented as of this encounter
--- OUTSIDE RECORDS SUMMARY | 2022-08-05 10:33 | XMS_ITS | Encounter Summary ---
:1960 Author Organization [facility] Address [address] [place] [address] Care Team Providers Name Role Phone Ladan Song MD Primary Care Provider Unavailable Reason for Visit Reason Comments QUESTIONS, GENERAL Encounter Details Date Type Department Care Team Description 03/12/2021 Telephone [facility] Cesar Champagne, QUESTIONS, GENERAL [address] [facility] [place], [place] [address] [address] [phone] [place] [address] (Wo rk) Social History Tobacco Use [...] issues again and declined to giveinformation to curriculum writer. 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 documented in this encounter Plan of Treatment Upcoming Encounters Date Type Specialty Care Team Description 09/15/2022 Appointment Orthopedics Delgado Gottlieb MD [address] [place] [phone] (Gavi presley) 10/08/2022 Appointment Orthopedics Delgado Gottlieb MD [address] [place] [phone] (Gavi presley) 05/27/2023 Appointment Chemo Therapy/Infusion Services documented as of this encounter Visit Diagnoses Not on filedocumented in this encounter Care Teams Clay Grinder Relationship Specialty Start Date End Date Ladan Song MD PCP - General Internal Medicine 08/18/17 09/29/21 documented as of this encounter
--- OUTSIDE RECORDS SUMMARY | 2022-08-05 10:34 | XMS_ITS | Encounter Summary ---
:1960 [facility] Address [address] [place] [address] Care Team Providers Name Role Phone Ladan Song MD Primary Care Provider Unavailable Reason for Visit Reason Comments Pre-procedure Call Encounter Details Date Type Department Care Team Description 01/09/2021 Telephone [facility] Luz Wei, Pre-procedure Call [address] [place], [place] [address] Social History Tobacco Use Types [...] Description 09/15/2022 Appointment Orthopedics Delgado Gottlieb MD [address] [place] [phone] (Gavi presley) 10/08/2022 Appointment Orthopedics Delgado Gottlieb MD [address] [place] [phone] (Gavi presley) 05/27/2023 Appointment Chemo Therapy/Infusion Services documented as of this encounter Visit Diagnoses Not on filedocumented in this encounter Care Teams Fur Scraper Relationship Specialty Start Date End Date Ladan Song MD PCP - General Internal Medicine 08/18/17 09/29/21 documented as of this encounter
--- OUTSIDE RECORDS SUMMARY | 2022-08-05 10:34 | XMS_ITS | Encounter Summary ---
:1960 Author [facility] Address [address] [place] [address] Care Team Providers Name Role Phone Cintia Cobb MD Primary Care Provider Encounter Details Date Type Department Care Team Description 08/16/2019 Lab Requisition [facility] Aureliano Munoz, Encounter for [address] Ramirez Roach MD screening for [place] [address] [facility] res piratory [address] [facility] [phone] [place] [address] Social History Tobacco Use Types Packs/Day Years [...] 09/15/2022 Appointment Orthopedics Delgado Gottlieb MD [address] [facility] [place] [place] [address] (Gavi presley) 10/08/2022 Appointment Orthopedics Delgado Gottlieb MD [address] [facility] [place] [place] [address] (Wo rk) 05/27/2023 Appointment Chemo Therapy/Infusion Services documented as of this encounter Procedures Procedure Name Priority Date/Time Associated Diagnosis Comme nts TB GOLD, QUANTIFERON Routine 08/17/2019 11:32 Encounter for Re sults for this AM SELF DEFENSE INSTRUCTOR screening for procedure are in respiratory the results tuberculosis section. documented in this encounter Results (ABNORMAL) TB Gold, QuantiFERON Plus (08/17/2019 11:32 AM SELF DEFENSE INSTRUCTOR) [facility] Method Time Signature TB Gold, Indeterminate Negative 08/19/2019 [facility] QuantiFeron (A) 2:32 PM SELF DEFENSE INSTRUCTOR LABORATORY Plus TB Nil Value 0.04 08/19/2019 [facility] 2:32 PM SELF DEFENSE INSTRUCTOR LABORATORY TB1 Minus Nil <0.01 08/19/2019 [facility] Value 2:32 PM SELF DEFENSE INSTRUCTOR LABORATORY TB2 Minus Nil <0.01 08/19/2019 [facility] Value 2:32 PM SELF DEFENSE INSTRUCTOR LABORATORY Mitogen Minus 0.39 08/19/2019 [facility] Nil Value 2:32 PM SELF DEFENSE INSTRUCTOR LABORATORY Specimen Anatomical Collection Method / Collection Time Recei shahid Time (Source) Location / Volume Laterality Blood Venipuncture / 08/17/2019 11:32 9 2:24 Unknown AM SELF DEFENSE INSTRUCTOR PM SELF DEFENSE INSTRUCTOR Narrative [facility] - 08/19/2019 2:32 P M SELF DEFENSE INSTRUCTOR Nil ?TB1-Nil ? TB2-Nil ?Mitogen-Nil ??Result ?Interpretation [...] Organization Address City/State/ZIP Code Phon e Number [facility] [address] [place] [address] documented in this encounter Visit Diagnoses Diagnosis Encounter for screening for respiratory tuberculosis Screening examination for pulmonary tube rculosis documented in this encounter Care Teams Manager Play Relationship Specialty Start Date End Date Cintia Cobb MD PCP - General Family Practice 09/30/21 documented as of this encounter
--- OUTSIDE RECORDS SUMMARY | 2022-08-05 10:34 | XMS_ITS | Encounter Summary ---
:1960 Author Organization [facility] Address [address] [place] [address] Care Team Providers Name Role Phone Eric Bower MD Primary Care Provider Reason for Visit Reason Comments QUESTIONS, GENERAL Encounter Details Date Type Department Care Team Description 08/05/2017 Telephone [facility] ANNI German Rob, QUESTIONS, GENERAL [address] [facility] [place], [place] [address] 8100 [facility] [phone] [place], [place] [address] (Wo rk) Social History Tobacco Use Types [...] back with further questions or concerns to [phone]. NT PARTNER documented in this encounter Plan of Treatment Upcoming Encounters Date Type Specialty Care Team Description 09/15/2022 Appointment Orthopedics Delgado Gottlieb MD [address] [place], [place] [phone] (Wo rk) 10/08/2022 Appointment Orthopedics Delgado Gottlieb MD [address] [place] [phone] (Gavi rk) 05/27/2023 Appointment Chemo Therapy/Infusion Services documented as of this encounter Visit Diagnoses Not on filedocumented in this encounter Care Teams Applications Development Consultant Relationship Specialty Start Date End Date Eric Bower MD PCP - General 12/10/10 08/17/[address] [place] [phone] documented as of this encounter
--- OUTSIDE RECORDS SUMMARY | 2022-08-05 10:34 | XMS_ITS | Encounter Summary ---
:1960 Author Organization [facility] Address [address] [place] [address] Care Team Providers Name Role Phone Ladan Song MD Primary Care Provider Unavailable Reason for Visit Reason Comments Post Visit Follow Up Phone Call Encounter Details Date Type Department Care Team Description 01/16/2021 Telephone [facility] Naima Narayan, Post Visit Follow Up [address] [facility] RN Phone Call [place], [place] [address] Social History Tobacco Use Types [...] 09/15/2022 Appointment Orthopedics Delgado Gottlieb MD [address] [place], [place] [phone] (Gavi presley) 10/08/2022 Appointment Orthopedics Delgado Gottlieb MD [address] [place], [place] [address] (Gavi presley) 05/27/2023 Appointment Chemo Therapy/Infusion Services documented as of this encounter Visit Diagnoses Not on filedocumented in this encounter Care Teams Microelectronics Engineer Relationship Specialty Start Date End Date Ladan Song MD PCP - General Internal Medicine 08/18/17 09/29/21 documented as of this encounter
--- OUTSIDE RECORDS SUMMARY | 2022-08-05 10:34 | XMS_ITS | Encounter Summary ---
:1960 [facility] Address [address] [place] [address] Care Team Providers Name Role Phone Ladan Song MD Primary Care Provider Unavailable Reason for Visit Procedure/Equipment (Routine) - Incomplete Specialty Diagnoses / Procedures Referred By Contact Refer red To Contact Procedures German Miller MD Foreign Image(S) XR Elbow [address] [facility] [place] [address] Referral ID Status Reason Start Date Expiration Date Visits V isits Requested Authorized [id number] Incomplete 04/08/2018 07/08/2019 1 1 Encounter Details Date Type Department Care Team Description 02/14/2018 Imaging Radiology PACS German Miller MD [address] [place] [address] [place] [address] (Wo rk) Social History Tobacco Use Types [...] 09/15/2022 Appointment Orthopedics Delgado Gottlieb MD [address] [place] [address] [place] [phone] (Wo rk) 10/08/2022 Appointment Orthopedics Delgado Gottlieb MD [address] [place], [place] [address] (Wo rk) 05/27/2023 Appointment [...] on filedocumented in this encounter Care Teams Wildlife Biostation Research Ecologist Relationship Specialty Start Date End Date Ladan Song MD PCP - General Internal Medicine 08/18/17 09/29/21 documented as of this encounter
--- OUTSIDE RECORDS SUMMARY | 2022-08-05 10:34 | XMS_ITS | Encounter Summary ---
:1960 Author Organization [facility] Address [address] [place] [address] Care Team Providers Name Role Phone Ladan Song MD Primary Care Provider Unavailable Reason for Visit (Routine) - Incomplete Specialty Diagnoses / Procedures Referred By Contact Refer red To Contact Procedures Cesar Scherer MD Foreign Image(s) CT L-Spine [address] W/WO IV Cont [place], [place] [phone] Referral ID Status Reason Start Date Expiration Date Visits V isits Requested Authorized [id number] Incomplete 12/07/2020 03/08/2022 1 1 Encounter Details Date Type Department Care Team Description 08/30/2020 Ancillary Procedure [facility] Radiology PACS [place] [address] [place] [address] Social History Tobacco Use Types [...] 09/15/2022 Appointment Orthopedics Delgado Gottlieb MD [address] [place], [place] [address] (Gavi rk) 10/08/2022 Appointment Orthopedics Delgado Gottlieb MD [address] [place], [place] [address] (Gavi presley) 05/27/2023 Appointment Chemo Therapy/Infusion Services documented as of this encounter Procedures Procedure Name Priority Date/Time Associated Diagnosis Comme nts FOREIGN IMAGE(S) CT Routine 08/30/2020 12:00 AM R esults for this L-SPINE W/WO IV SENIOR OPERATIONS MANAGER procedure ar e in CONT the results section. documented in this encounter Results Foreign Image(s) CT L-Spine W/WO IV Cont (08/30/2020 12:00 AM SENIOR OPERATIONS MANAGER) Specimen (Source) Anatomical Location Collection Method / [...] on filedocumented in this encounter Care Teams Medical Policy Specialist Relationship Specialty Start Date End Date Ladan Song MD PCP - General Internal Medicine 08/18/17 09/29/21 documented as of this encounter
--- OUTSIDE RECORDS SUMMARY | 2022-08-05 10:34 | XMS_ITS | Encounter Summary ---
:1960 Author Organization [facility] Address [address] [place] [address] Care Team Providers Name Role Phone Ladan Song MD Primary Care Provider Unavailable Reason for Visit Procedure/Equipment (Routine) - Canceled Specialty Diagnoses / Procedures Referred By Contact Refer red To Contact Diagnoses No diagnosis or condition on [place] II (HRC) German Miller MD Procedures FL C Arm Mini [address] [facility] [place], [place] [address] Referral ID Status Reason Start Date Expiration Date Visits V isits Requested Authorized [id number] Canceled 08/18/2017 11/17/2018 1 1 Encounter Details Date Type Department Care Team Description 08/18/2017 Hospital Encounter [facility] Rad[facility] German Miller No diagnosis or [address] Ramirez Motta MD condition on [address] [facility] [address] RAZO [facility] [address] [phone] Social History Tobacco Use Types Packs/Day Years [...] in 24 hours cyanocobalamin 3 10/28/2016 06/26/2021 ([id number]) 1000 MCG/ML injection HYDROmorphone Take 1-2 Tabs [...] Description 09/15/2022 Appointment Orthopedics Delgado Gottlieb MD [address] [place] [phone] (Gavi presley) 10/08/2022 Appointment Orthopedics Delgado Gottlieb MD [address] [place] [phone] (Gavi presley) 05/27/2023 Appointment Chemo Therapy/Infusion Services documented as of this encounter Visit Diagnoses Diagnosis No diagnosis or condition on [place] II (HR C) Observation of other suspected mental co ndition documented in this encounter Care Teams Marking Devices Assembler Relationship Specialty Start Date End Date Ladan Song MD PCP - General Internal Medicine 08/18/17 09/29/21 documented as of this encounter
--- OUTSIDE RECORDS SUMMARY | 2022-08-05 10:34 | XMS_ITS | Encounter Summary ---
:1960 Author [facility] Address [address] [place] [address] Care Team Providers Name Role Phone Ladan Song MD Primary Care Provider Unavailable Reason for Visit Reason Comments Elbow Problem left Encounter Details Date Type Department Care Team Description 04/08/2018 Office Visit [facility] German Miller, Cont usion of left CENTER elbow, initial [address] [facility] [address] [facility] [address] encounter (Primary [place], [place] [address] [place], [place] Dx) [phone] (Wo rk) Social History Tobacco Use Types [...] Miller MD Hand & Upper Extremity Surgeon Iuss Acoustic Analyst: Lalitha Watson Please contact Lalitha for all surgery scheduling and administrative questions at [phone] Hand Nurse: Leonardo Yao Please contact Leonardo for all medical related questions at [phone] Medication Requests: Prescriptions are not filled on Weekends or on Weekdays after 3:00PM For all medication refills: Request a refill using [employer] or contact your Pharmacy Please call [phone] to make future appointments. Dr. 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 Denies any numbness or tingling. Physical [...] l to a spine physician here at [facility]. A referral to Dr. Wilson has been placed. Patient voiced understanding of the information discussed and has elected to proceed with my recommendations. All questions were answered. Follow up as needed. Scribe Disclosure: I, Sebas Cooper, am serving as a scribe to document [...] Description 09/15/2022 Appointment Orthopedics Delgado Gottlieb MD [address] [place] [phone] (Gavi presley) 10/08/2022 Appointment Orthopedics Delgado Gottlieb MD [address] [place] [phone] (Gavi presley) 05/27/2023 Appointment Chemo Therapy/Infusion Services documented as of this encounter Visit Diagnoses Diagnosis Contusion of left elbow, initial encount er - Primary documented in this encounter Care Teams Director Game Relationship Specialty Start Date End Date Ladan Song MD PCP - General Internal Medicine 08/18/17 09/29/21 documented as of this encounter
--- OUTSIDE RECORDS SUMMARY | 2022-08-05 10:34 | XMS_ITS | Encounter Summary ---
:1960 Author Organization [facility] Address [address] [place] [address] Care Team Providers Name Role Phone Ladan Song MD Primary Care Provider Unavailable Reason for Visit Reason Comments Orders Needed Encounter Details Date Type Department Care Team Description 04/10/2020 Telephone [facility] Giovanni Granger MD Orders Needed [address] [facility] [address] [facility] [place] [address] [place] [address] [phone] (Wo rk) Social History Tobacco Use Types [...] 04/11/2020 4:00 PM CDT Order sent to [facility]. Left VM for patient regarding this and [facility] number to call to schedule. Radha [...] and advised will need to speak with water hauler. Eli Mercado - 04/10/2020 11:42 AM CDT [...] off to attend a in the morning. [News Specialist/Appt Center: If this call is after 3 p.m., communicate to patient: If we are not able to get back to you by the end of the day and your symptoms worsen please contact the Careline] [News Specialist: Please inform patient that a referral does not guarantee insurance coverage. Patients should call the member services number on the back of their insurance ID card to understand whatcoverage for the services they are requesting.] documented in this encounter Plan of Treatment Upcoming Encounters Date Type Specialty Care Team Description 09/15/2022 Appointment Orthopedics Delgado Gottlieb MD [address] [place], [place] [address] (Gavi presley) 10/08/2022 Appointment Orthopedics Delgado Gottlieb MD [address] [place], [place] [address] (Gavi presley) 05/27/2023 Appointment Chemo Therapy/Infusion Services documented as of this encounter Visit Diagnoses Diagnosis Other intervertebral disc displacement, lumbar region (HRC) - Primary Displacement of lumbar intervertebral di sc (HRC) Displacement of lumbar intervertebral di 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
--- OUTSIDE RECORDS SUMMARY | 2022-08-05 10:34 | XMS_ITS | Encounter Summary ---
:1960 Author Organization [facility] Address [address] [place] [address] Care Team Providers Name Role Phone Ladan Song MD Primary Care Provider Unavailable Reason for Referral Therapies (Routine) - Closed Specialty Diagnoses / Procedures Referred By Contact Refer red To Contact Diagnoses Cubital tunnel syndrome on left Stiffness of left elbow joint German Miller MD [address] [facility] [place], [place] [address] Referral ID Status Reason Start Date Expiration Date Visits Requ ested Visits Authorized [id number] Closed 08/18/2017 10/17/2017 1 1 Scheduling Instructions Your provider has recommended an appoint ment with [facility]. You may call [phone] to schedule your appoi ntment. If you do not schedule an appointment within the next 1 to 3 business days, we will call you to help arrange your appointment. We suggest you call your [employer] insurance [employer] about your coverage and benefits for this appointment. N'S COUNSEL Encounter Details Date Type Department Care Team Description 08/18/2017 Hospital Encounter [facility] German Miller Cubital tunnel syndrome on left (Primary Dx); Bren Motta MD Stiffness of left elbow joint [address] [facility] [place] [address] [phone] Social History Tobacco Use Types Packs/Day Years [...] 79.4 kg (175 lb) 08/17/2017 11:02 AM QUEEN'S COUNSEL Height 182.9 cm (6') 08/17/2017 11:02 AM QUEEN'S COUNSEL Body Mass Index 23.73 08/17/2017 11:02 AM QUEEN'S COUNSEL documented in this encounter Discharge Instructions Discharge Instr - Other German Ochoa MD - 08/18/2017 4:44 PM QUEEN'S COUNSEL Home Care following Hand Surgery Diet You [...] your surgery or post-surgical care call [facility] ([phone]) and ask for nurse triage. Home Care [...] the next 48-72 hours. Contact your physician ([phone]) if you have any of these problems: ?? Continued numbness or increased numbness or tingling. ?? Swelling of the extremity that makes the dressing too tight. Take special note of either extremities that are cold to the touch or exhibit blue coloring. ?? Excessive bleeding or drainage. ?? Severe pain. N'S COUNSEL documented in this encounter Medications at Time [...] in 24 hours cyanocobalamin 3 10/28/2016 06/26/2021 ([id number]) 1000 MCG/ML injection HYDROmorphone Take 1-2 Tabs [...] candidate for surgery. German Miller MD 08/18/2017 N'S COUNSEL Source Note - ProviderRoland MD - 08/17/2017 12:00 AM QUEEN'S COUNSEL documented in this encounter Procedure Notes German [...] home German Miller MD 4:31 PM 08/18/2017 N'S COUNSEL German Miller MD - 08/18/2017 12:00 PM CST NAME: LAZ LUNA MR#: [id number] CSN: [id number] AUTHENTICATING CLINICIAN: German Miller MD CONFIRM #: [id number] LOC: 1 OPERATIVE REPORT DATE OF OPERATION: 08/18/2017 : 1960 SURGEON: German Miller MD PREOPERATIVE DIAGNOSES: 1.Left cubital tunnel syndrome. 2.Left elbow arthritis. 3.Left elbow loose bodies. POSTOPERATIVE DIAGNOSES: 1.Left cubital tunnel syndrome. 2.Left elbow arthritis. 3.Left elbow loose bodies. PROCEDURE PERFORMED: 1.Left ulnar nerve submuscular transposition. 2.Left elbow capsulectomy. 3.Left elbow open debridement and loose body removal. SR. DIRECTOR: BEBETO Milian, assistant professor of english. ANESTHESIA: Brachial plexus block. ESTIMATED BLOOD LOSS: [...] nerve further proximally and the arcade of [place] was released. I then traced the nerve [...] like to see him 6 weeks postop. MCW:KEISHA C: CONFIRM #: [id number] N'S COUNSEL documented in this encounter Plan of Treatment Upcoming Encounters Date Type Specialty Care Team Description 09/15/2022 Appointment Orthopedics Delgado Gottlieb MD [address] [place], [place] [address] (Wo rk) 10/08/2022 Appointment Orthopedics Delgado Gottlieb MD [address] [place] [phone] (Wo rk) 05/27/2023 Appointment Chemo [...] PM Result s for this MONITOR POCT QUEEN'S COUNSEL procedure are i n the results section. POTASSIUM STAT 08/18/2017 1:35 PM Results f or this QUEEN'S COUNSEL procedure are i n the results section. documented in this encounter Results Bedside Glucose Monitor (08/18/2017 1:50 PM QUEEN'S COUNSEL) P athologist Signature Bedside Blood 118 mg/dL PN SOFT Glucose Test Comment: Performed at [address] [facility] [place] [address] Specimen Anatomical Collection Method Collection Time Receive d Time (Source) Location / / Volume Laterality 08/18/2017 1:50 PM 7 1:55 QUEEN'S COUNSEL PM QUEEN'S COUNSEL German Miller MD LAB_1 Performing Organization Address [facility] Phon e Number PN SOFT [address] [place] [address] POTASSIUM (08/18/2017 1:35 PM QUEEN'S COUNSEL) athologist Signature Potassium 4.1 3.5 - 5.2 PN SOFT mmol/L Specimen Anatomical Collection Method Collection Time Receive d Time (Source) Location / / Volume Laterality 08/18/2017 1:35 PM 7 1:43 QUEEN'S COUNSEL PM QUEEN'S COUNSEL Narrative PN SOFT - 08/18/2017 2:31 PM QUEEN'S COUNSEL Performed at [place] [address] [place] [address] CLIA number [id number] German Miller MD LAB_1 Performing Organization Address [facility] Phon e Number PN SOFT [address] [place] [address] documented in this encounter Visit Diagnoses Diagnosis Cubital tunnel syndrome on left - Primar y Lesion of ulnar nerve Stiffness of left elbow joint documented in this encounter Administered Medications Inactive Administered Medications - up to 3 most recent administrations Medication Order MAR Action Action Date Dose Rate Site fentaNYL (SUBLIMAZE) injection 25-50 mcg 25-50 mcg, Intravenous, [id number], Other, Moderate to Severe Pain (pain score [...] Recently Administered Medications Times are shown in QUEEN'S COUNSEL. Scheduled Medication Order 08/16/2017 08/17/2017 08/18/2017 acetaminophen [...] (SUBLIMAZE) injection 25-50 mcg 25-50 mcg, Intravenous, [id number], Other, Moderate to Severe Pain (pain score [...] PACU/Recovery documented in this encounter Care Teams Boarding Mother Relationship Specialty Start Date End Date Ladan Song MD PCP - General Internal Medicine 08/18/17 09/29/21 documented as of this encounter
--- OUTSIDE RECORDS SUMMARY | 2022-08-05 10:34 | XMS_ITS | Encounter Summary ---
:1960 Author Organization [facility] Address [address] [place] [address] Care Team Providers Name Role Phone Ladan Song MD Primary Care Provider Unavailable Reason for Visit Reason Comments ARM PAIN left Encounter Details Date Type Department Care Team Description 10/06/2017 Office Visit [facility] German Miller Hist [facility] surgery (Primary Dx) [address] [place] [address] DR [place] [address] [address] [place], [place] [phone] (Wo rk) Social History Tobacco Use Types [...] as of this encounter Patient Instructions Patient InstructionsKkyaAmol, OA - 10/06/2017 9:[address] German Miller MD Hand & Upper Extremity Surgeon Roving Department End Finder: Lalitha Watson Please contact Lalitha for all surgery scheduling and administrative questions at [phone] Hand Nurse: Leonardo Yao Please contact Leonardo for all medical related questions at [phone] Medication Requests: Prescriptions are not filled on Weekends or on Weekdays after 3:00PM For all medication refills: Request a refill using [facility] or contact your Pharmacy Please call [phone] to make future appointments. Follow up in 6 weeks as tolerated NESS BROKER documented in this encounter Progress Notes German Miller MD - 10/06/2017 9:00 AM CST [facility] Postoperative Follow-Up 10/06/2017 History of Present Illness: [...] (b) the recordis accurate. German Miller MD NESS BROKER documented in this encounter Plan of Treatment Upcoming Encounters Date Type Specialty Care Team Description 09/15/2022 Appointment Orthopedics Delgado Gottlieb MD [address] [place], [place] [address] (Wo rk) 10/08/2022 Appointment Orthopedics Delgado Gottlieb MD [address] [place], [place] [address] (Wo rk) 05/27/2023 Appointment Chemo Therapy/Infusion Services documented as of this encounter Visit Diagnoses Diagnosis History of elbow surgery - Primary Personal history of surgery to other org ans documented in this encounter Care Teams Exterior Work Helper Relationship Specialty Start Date End Date Ladan Song MD PCP - General Internal Medicine 08/18/17 09/29/21 documented as of this encounter
--- OUTSIDE RECORDS SUMMARY | 2022-08-05 10:34 | XMS_ITS | Encounter Summary ---
:1960 Author Organization [facility] Address [address] [facility] [place] [address] Care Team Providers Name Role Phone Ladan Song MD Primary Care Provider Unavailable Reason for Referral (Routine) - Closed Specialty Diagnoses / Procedures Referred By Contact Refer red To Contact Diagnoses Lumbar radiculopathy Juan Miguel Buckley MD Procedures Dexamethasone [address] [place] [address] Dr [place] [address] 1 Referral ID Status Reason Start Date Expiration Date Visits Requ ested Visits Authorized [id number] Closed 07/07/2018 10/06/2019 1 1 Reason for Visit Reason Comments Procedure Procedure/Equipment (Routine) - Incomplete Specialty Diagnoses / Procedures Referred By Contact Refer red To Contact Diagnoses Low back pain, unspecified back pain laterality, unspecified chronicity, with sciatica presence unspecified (HRC) Giovanni Wilson MD Procedures FL C Arm 20 Pain Management [address] [place] [address] Dr [place] [address] Referral ID Status Reason Start Date Expiration Date Visits V isits Requested Authorized [id number] Incomplete 06/07/2018 09/06/2019 1 1 Encounter Details Date Type Department Care Team Description 07/07/2018 Procedure Visit [facility] Giovanni Wilson MD [address] [facility] [place] [address] [place] [address] Juan Miguel Buckley MD [address] [facility] [place] [address] [address] [place] [address] 1 3, Jean Jose Antonio Martinez [phone] Social History Tobacco Use Types Packs/Day Years [...] Patient Instructions Patient InstructionsSnehal Goins RN - 07/07/2018 8:30 AM CDT FOLLOW UP PLAN: Please follow up with Dr. Jamal Wilson in 10-14 days; call [phone] to schedule an appointment if you do not already have one. Lumbar Epidural Injection Post-Procedure Instructions: ?? Rest today, you may resume your normal activities tomorrow (Physical Therapy & resident care manager can also be resumed next day). ?? [...] and Anesthesiologist Please contact the Pain Nurse ([phone]) for all medical/procedural questions regarding your care at the [facility] Please contact our Pullboat Engineer ([phone]) for all administrative/scheduling questions related to the [facility] Medication Requests: Prescriptions requiring refills must be requested from the prescribing physician. If Dr. Buckley prescribed your medication, call the number above. If any other physician prescribed your medication, please contact his or her office to discuss. documented in this encounter Progress Notes Ivonne Contreras RN - 07/07/2018 8:30 AM CDT Patient here for LESI procedure. Patient rates pain in back, 5/10 at rest, 5/10 with activity. Verified NPO status. Pre-op teaching completed, patient verbalizes understanding. 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 Consent per MD. Snehal Goins [...] prone on the fluoroscopy table. Then a return to vendor film was taken to identify the correct [...] well and was discharged home, with a commercial relief driver, in stable condition with post procedural [...] 09/15/2022 Appointment Orthopedics Delgado Gottlieb MD [address] [place], [place] [address] (Wo rk) 10/08/2022 Appointment Orthopedics Delgado Gottlieb MD [address] [place], [place] [address] (Wo rk) 05/27/2023 Appointment [...] (HRC) documented in this encounter Care Teams Tool/Die Maker Relationship Specialty Start Date End Date Ladan Song MD PCP - General Internal Medicine 08/18/17 09/29/21 documented as of this encounter
--- OUTSIDE RECORDS SUMMARY | 2022-08-05 10:34 | XMS_ITS | Encounter Summary ---
:1960 Author Organization [facility] Address [address] [place] [address] Care Team Providers Name Role Phone Ladan Song MD Primary Care Provider Unavailable Reason for Referral Procedure/Equipment (Routine) - Incomplete Specialty Diagnoses / Procedures Referred By Contact Refer red To Contact Diagnoses Low back pain, unspecified back pain laterality, unspecified chronicity, with sciatica presence unspecified (HRC) Giovanni Wilson MD Procedures FL C Arm [address] [facility] [place] [address] Referral ID Status Reason Start Date Expiration Date Visits V isits Requested Authorized [id number] Incomplete 06/07/2018 09/06/2019 1 1 Reason for Visit Reason Comments BACK PAIN, LOW Encounter Details Date Type Department Care Team Description 06/07/2018 Office Visit [facility] Giovanni Wilson juani k pain, unspecified back pain laterality, unspecified chronicity, with sciatica presence unspecified (HRC) (Primary Dx); MELANIA Do[place] MD Displacement of lumbar intervertebral di mt [address] [facility] [address] [facility] [address] [phone] Social History Tobacco Use Types Packs/Day Years [...] CDT Dr. Giovanni Wilson MD Orthopeadic Spine Donkey Doctor: Anya Pittman Please contact Anya for all administrative questions at [phone] Please contact the Spine Nurse for all medical related questions at [phone] Office Hours: Thursday-Thursday and AM Medication Requests: Prescriptions are not filled on Weekends or on Weekdays after 3:00PM For all medication refills: Request a refill using MyChart or contact your Pharmacy documented in this encounter Progress Notes Giovanni Wilson MD - 06/07/2018 12:00 PM CDT NAME: LAZ LUNA MR#: [id number] CSN: [id number] AUTHENTICATING CLINICIAN: Giovanni Wilson MD CONFIRM #: [id number] LOC: 711 CLINIC PROGRESS NOTE DATE OF VISIT: 06/07/2018 : 1960 NEW VISIT: CHIEF COMPLAINT: Radicular left leg pain and weakness. 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 He is [...] imaging of the lumbar spine through the [employer] system, which confirms disk bulging at L2-3 [...] Lumbar disk protrusion. CC: AZIZA MILLER MD [address] [place] [address] DAA:MEDQ C: R:06/07/18 12:40 CONFIRM#:[id number] documented in this encounter Plan of Treatment Upcoming Encounters Date Type Specialty Care Team Description 09/15/2022 Appointment Orthopedics Delgado Gottlieb MD [address] [place], [place] [address] (Wo rk) 10/08/2022 Appointment Orthopedics Delgado Gottlieb MD [address] [place], [place] [address] (Wo rk) 05/27/2023 Appointment [...] (HRC) documented in this encounter Care Teams Manufacturing Teacher Relationship Specialty Start Date End Date Ladan Song MD PCP - General Internal Medicine 08/18/17 09/29/21 documented as of this encounter
--- OUTSIDE RECORDS SUMMARY | 2022-08-05 10:34 | XMS_ITS | Encounter Summary ---
:1960 Author [facility] Address [address] [place] [address] Care Team Providers Name Role Phone Ladan Song MD Primary Care Provider Unavailable Reason for Visit Reason Comments Post Visit Follow Up Phone Call Encounter Details Date Type Department Care Team Description 07/08/2018 Telephone [facility] Garth White RN Post Visit Follow Up [address] Phone Call [place], [place] [address] [place], [place] [phone] (Gavi presley) Social History Tobacco Use Types [...] 09/15/2022 Appointment Orthopedics Delgado Gottlieb MD [address] [place], [place] [address] (Gavi rk) 10/08/2022 Appointment Orthopedics Delgado Gottlieb MD [address] [place], [place] [address] (Gavi rk) 05/27/2023 Appointment Chemo Therapy/Infusion Services documented as of this encounter Visit Diagnoses Not on filedocumented in this encounter Care Teams Surveyor Helper Rod Relationship Specialty Start Date End Date Ladan Song MD PCP - General Internal Medicine 08/18/17 09/29/21 documented as of this encounter
--- OUTSIDE RECORDS SUMMARY | 2022-08-05 10:34 | XMS_ITS | Encounter Summary ---
:1960 Author Organization [facility] Address [address] [place] [address] Care Team Providers Name Role Phone Eric Bower MD Primary Care Provider Reason for Visit Reason Onset Date Comments UPDATE 06/24/2017 Encounter Details Date Type Department Care Team Description 06/24/2017 Telephone [facility] ANNI TER German Miller MD UPDATE [address] [place] [address] [place] [address] [place] [address] [phone] (Wo rk) Social History Tobacco Use Types [...] 2 procedures can be done close together. [facility] asked that we contact this pt and obtain the name of the abdominal surgeon so that he could calland discuss this with him. In speaking to the pt, he has adamantly refused to tell us who the other surgeon is. Some doctor down in [place]. You don't need that information. I am [...] he said no big deal. Routing to [facility] to see how he would like to proceed on this. documented in this encounter Plan of Treatment Upcoming Encounters Date Type Specialty Care Team Description 09/15/2022 Appointment Orthopedics Delgado Gottlieb MD [address] [place], [place] [address] (Gavi presley) 10/08/2022 Appointment Orthopedics Delgado Gottlieb MD [address] [place], [place] [address] (Gavi presley) 05/27/2023 Appointment Chemo Therapy/Infusion Services documented as of this encounter Visit Diagnoses Not on filedocumented in this encounter Care Teams Buzzle Buffer Relationship Specialty Start Date End Date Eric Bower MD PCP - General 12/10/10 08/17/[address] [place] [phone] documented as of this encounter
--- OUTSIDE RECORDS SUMMARY | 2022-08-05 10:34 | XMS_ITS | Encounter Summary ---
:1960 Author Organization [facility] Address [address] [place] [address] Care Team Providers Name Role Phone Ladan Song MD Primary Care Provider Unavailable Reason for Referral Procedure/Equipment (Routine) - Incomplete Specialty Diagnoses / Procedures Referred By Contact Refer red To Contact Diagnoses Spinal stenosis of lumbar region with neurogenic claudication Cesar Scherer MD Procedures FL C Arm 20 Pain Management [address] [address] Referral ID Status Reason Start Date Expiration Date Visits V isits Requested Authorized [id number] Incomplete 12/25/2020 03/26/2022 1 1 Reason for Visit Reason Comments Back Problem Low back Left leg pain Consult/Transfer Care (Routine) - Closed Specialty Diagnoses / Procedures Referred By Contact Refer red To Contact Orthopedics Diagnoses Low back pain (HRC) Spondylosis without myelopathy or radiculopathy, lumbar region (HRC) Radiculopathy, lumbar region Christian Gonzalez II [facility] [address] [place] [phone] Referral ID Status Reason Start Date Expiration Date Visits Requ ested Visits Authorized [id number] Closed 12/05/2020 03/06/2022 1 1 Encounter Details Date Type Department Care Team Description 12/25/2020 Office Visit Cesar Reynolds Spinal stenosis of ASHTON MD Terri lumbar region with [address] neurogenic claudication [place], [place] [address] [place] [address] (Primary Dx) [phone] [place] [address] Social History Tobacco Use Types [...] Gao PA-C - 12/25/2020 12:00 AM CDT CARLYLELAZ J CSN: [id number] CLINIC NOTE DATE OF SERVICE: 12/25/2020 : [...] L4-5 decompression in 1988, pacemaker implantation in 2017, and a fractured hip repair in 2019. CURRENT MEDICATIONS: Reviewed in Epic. ALLERGIES: CIPRO AND THE FLU SHOT. FAMILY HISTORY: Noncontributory in regard to spine pathology. 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 He has worked for [employer] since 1952. Lives at home with his [...] Luna's lumbar spine is available for review. [employer] PACS system does reveal significant spinal stenosis [...] questions or concerns. FREDDY GAO PA-C Staff: MD ENRIQUE BROWN/JOSEPH /[id number] documented in this encounter Plan of Treatment Upcoming Encounters Date Type Specialty Care Team Description 09/15/2022 Appointment Orthopedics Delgado Gottlieb MD [address] [place], [place] [address] (Wo rk) 10/08/2022 Appointment Orthopedics Delgado Gottlieb MD [address] [place], [place] [address] (Gavi rk) 05/27/2023 Appointment [...] claudication documented in this encounter Care Teams Regional Telecommunications Specialist Relationship Specialty Start Date End Date Ladan Song MD PCP - General Internal Medicine 08/18/17 09/29/21 documented as of this encounter
--- OUTSIDE RECORDS SUMMARY | 2022-08-05 10:34 | XMS_ITS | Encounter Summary ---
:1960 Author Organization [facility] Address [address] [place] [address] Care Team Providers Name Role Phone Ladan Song MD Primary Care Provider Unavailable Encounter Details Date Type Department Care Team Description 08/26/2017 Notes/Orders [facility] Radha Womack, OTR/L [address] [facility] [address] [place] [address] [address] [place] [address] [phone] (Wo rk) Social History Tobacco Use Types [...] scheduled appointment next week. VINCENT Brady/Violette T #[id number] ECTION OFFICER PENITENTIARY documented in this encounter Plan of Treatment Upcoming Encounters Date Type Specialty Care Team Description 09/15/2022 Appointment Orthopedics Delgado Gottlieb MD [address] [place] [address] (Gavi presley) 10/08/2022 Appointment Orthopedics Delgado Gottlieb MD [address] [place] [address] (Gavi presley) 05/27/2023 Appointment Chemo Therapy/Infusion Services documented as of this encounter Visit Diagnoses Not on filedocumented in this encounter Care Teams Mds Manager Relationship Specialty Start Date End Date Ladan Song MD PCP - General Internal Medicine 08/18/17 09/29/21 documented as of this encounter
--- OUTSIDE RECORDS SUMMARY | 2022-08-05 10:34 | XMS_ITS | Encounter Summary ---
:1960 Author Organization [facility] Address [address] [address] Care Team Providers Name Role Phone Eric Bower MD Primary Care Provider Encounter Details Date Type Department Care Team Description 08/11/2017 Notes/Orders [facility] German Miller, Surg hayes, elective CENTER (Primary Dx) [address] [facility] [address] [place] [address] DR [place] [address] [place], [place] [phone] (Gavi presley) Social History Tobacco Use Types [...] 09/15/2022 Appointment Orthopedics Delgado Gottlieb MD [address] [place], [place] [address] (Gavi presley) 10/08/2022 Appointment Orthopedics Delgado Gottlieb MD [address] [place], [place] [address] (Gavi presley) 05/27/2023 Appointment Chemo Therapy/Infusion Services documented as of this encounter Visit Diagnoses Diagnosis Surgery, elective - Primary Unspecified elective surgery for purpose s other than remedying health states documented in this encounter Care Teams Drain Tile Press Operator Relationship Specialty Start Date End Date Eric Bower MD PCP - General 12/10/10 08/17/[address] [address] documented as of this encounter
--- OUTSIDE RECORDS SUMMARY | 2022-08-05 10:34 | XMS_ITS | Encounter Summary ---
:1960 [address] [facility] Address [address] [place] [address] Care Team Providers Name Role Phone Ladan Song MD Primary Care Provider Unavailable Reason for Visit Reason Comments Appt. Work In Request Encounter Details Date Type Department Care Team Description 03/24/2018 Telephone [facility] German Miller, Appt . Work In Request CENTER [address] [place] [address] [place] [address] [place], [place] [phone] (Wo rk) Social History Tobacco Use Types [...] back with further questions or concerns to [phone]. Freda Yao RN - 03/24/2018 9:34 AM [...] bothering him. He did go to the [facility] ER. They did not see a fx. [...] Description 09/15/2022 Appointment Orthopedics Delgado Gottlieb MD [address] [place] [address] (Gavi presley) 10/08/2022 Appointment Orthopedics Delgado Gottlieb MD [address] [place] [address] (Gavi presley) 05/27/2023 Appointment Chemo Therapy/Infusion Services documented as of this encounter Visit Diagnoses Not on filedocumented in this encounter Care Teams Hosiery Operator Relationship Specialty Start Date End Date Ladan Song MD PCP - General Internal Medicine 08/18/17 09/29/21 documented as of this encounter
--- OUTSIDE RECORDS SUMMARY | 2022-08-05 10:34 | XMS_ITS | Encounter Summary ---
:1960 Author Organization [facility] Address [address] [place] [address] Care Team Providers Name Role Phone Ladan Song MD Primary Care Provider Unavailable Reason for Visit Reason Comments Surgery Questions Encounter Details Date Type Department Care Team Description 12/03/2020 Telephone [facility] ANNI Rudy Horton, Surgery Questions [address] [facility] [place], [place] [address] [address] [address] [place] [address] (Wo rk) Social History Tobacco Use Types [...] he had a recent Xray done at [place] that shows ruptures at L3, L4 and [...] Center 12/25/2020 4:10 PM Cesar Scherer MD [facility] PN [facility] Advised patient to have his Xrays from [place] released. Patient requesting to call phone if [...] he had a recent Xray done at [place] that shows ruptures at L3, L4 and L5 so thinks he needs surgery. Pt states that if the recovery time would be more thana month he would need to figure something out. Pt did not want to schedule an appt until he talked to someone to get details. Please call pt at [phone], no VM is available so hopefully he can takethe call when it comes through. When did the issue start: ongoing Have you been seen for this recently?: No Last saw Dr Wilson in 2018. [Collection Systems Modeler/Appt Center: If yes, please include date and provider.] Is it okay to leave detailed message on your voicemail? no [Collection Systems Modeler/Appt Center: If this call is after 3 p.m., communicate to patient: If we are not able to get back to you by the end of the day and your symptoms worsen please contact the Careline] documented in this encounter Plan of Treatment Upcoming Encounters Date Type Specialty Care Team Description 09/15/2022 Appointment Orthopedics Delgado Gottlieb MD [address] [place] [address] (Gavi presley) 10/08/2022 Appointment Orthopedics Delgado Gottlieb MD [address] [place], [place] [address] (Gavi presley) 05/27/2023 Appointment Chemo Therapy/Infusion Services documented as of this encounter Visit Diagnoses Not on filedocumented in this encounter Care Teams Line Cleaner Relationship Specialty Start Date End Date Ladan Song MD PCP - General Internal Medicine 08/18/17 09/29/21 documented as of this encounter
--- OUTSIDE RECORDS SUMMARY | 2022-08-05 10:34 | XMS_ITS | Encounter Summary ---
:1960 Author Organization [facility] Address [address], [place] [address] Care Team Providers Name Role Phone Ladan Song MD Primary Care Provider Unavailable Reason for Visit Procedure/Equipment (Routine) - Incomplete Specialty Diagnoses / Procedures Referred By Contact Refer red To Contact Procedures Cesar Scherer MD Foreign Image(S) CT Hip Lt [address] [facility] [address] [place], [place] [phone] Referral ID Status Reason Start Date Expiration Date Visits V isits Requested Authorized [id number] Incomplete 12/07/2020 03/08/2022 1 1 Encounter Details Date Type Department Care Team Description 08/30/2020 Ancillary Procedure [facility] PACS [place] [address] [address] [facility] [address] [place] [address] Social History Tobacco Use Types [...] 09/15/2022 Appointment Orthopedics Delgado Gottlieb MD [address] [place], [place] [address] (Wo rk) 10/08/2022 Appointment Orthopedics Delgado Gottlieb MD [address] [place], [place] [address] (Wo rk) 05/27/2023 Appointment Chemo Therapy/Infusion Services documented as of this encounter Procedures Procedure Name Priority Date/Time Associated Diagnosis Comme nts FOREIGN IMAGE(S) CT Routine 08/30/2020 12:05 AM R esults for this HIP LT DRYWALL FINISHING FOREMAN procedure are i n the results section. documented in this encounter Results Foreign Image(S) CT Hip Lt (08/30/2020 12:05 AM DRYWALL FINISHING FOREMAN) Specimen (Source) Anatomical Location Collection Method / [...] on filedocumented in this encounter Care Teams Electric Hoist Operator Relationship Specialty Start Date End Date Ldaan Song MD PCP - General Internal Medicine 08/18/17 09/29/21 documented as of this encounter
--- OUTSIDE RECORDS SUMMARY | 2022-08-05 10:34 | XMS_ITS | Encounter Summary ---
:1960 Author Organization [facility] Address [address] [place] [address] Care Team Providers Name Role Phone Ladan Song MD Primary Care Provider Unavailable Reason for Visit Reason Comments Elbow Problem Post Op Left ulnar nerve sub muscular transposition at elbow 08/18/17 Therapies (Routine) - Closed Specialty Diagnoses / Procedures Referred By Contact Refer red To Contact Diagnoses Cubital tunnel syndrome on left Stiffness of left elbow joint German Miller MD [address] [place] [address] [address] [place] [address] Referral ID Status Reason Start Date Expiration Date Visits Requ ested Visits Authorized [id number] Closed 08/18/2017 10/17/2017 1 1 Encounter Details Date Type Department Care Team Description 08/25/2017 Office Visit [facility] German Miller Status post musculoskeletal system surgery (Primary Dx); MELANIA Motta MD Aftercare following surgery of the [facility] [address] [facility] [address] [place] [address] [place] [address] [phone] Social History Tobacco Use Types Packs/Day Years [...] Miller MD - 08/25/2017 1:11 PM CST [facility] Postoperative Follow-Up 08/25/2017 History of Present Illness: Laz Luna is a 57 y.o. male status-post left ulnar nerve submuscular transposition, elbow capsulectomy and open debridement and loose body removal of left elbow completed on 08/18/2017 [facility]. The patient is doing [...] (b) the recordis accurate. German Miller MD DECORATOR documented in this encounter Plan of Treatment Upcoming Encounters Date Type Specialty Care Team Description 09/15/2022 Appointment Orthopedics Delgado Gottlieb MD [address] [place], [place] [address] (Wo rk) 10/08/2022 Appointment Orthopedics Delgado Gottlieb MD [address] [place], [place] [address] (Wo rk) 05/27/2023 Appointment Chemo Therapy/Infusion Services Scheduled Referrals Name Type Priority Associated Diagnoses Order S chedule Hand Occupational Therapy Referral Routine Cubital tunnel Ordered: 08/18/2017 syndrome on left Stiffness of left elbow joint documented as of this encounter Visit Diagnoses Diagnosis Status post musculoskeletal system surge ry - Primary Aftercare following [facility] Aftercare following surgery of the [facility], NEC documented in this encounter Care Teams Billet Shearer Relationship Specialty Start Date End Date Ladan Song MD PCP - General Internal Medicine 08/18/17 09/29/21 documented as of this encounter
--- OUTSIDE RECORDS SUMMARY | 2022-08-05 10:34 | XMS_ITS | Encounter Summary ---
:1960 Author Organization [facility] Address [address] [place] [address] Care Team Providers Name Role Phone Ladan Song MD Primary Care Provider Unavailable Reason for Visit Reason Comments Hand Therapy Encounter Details Date Type Department Care Team Description 09/01/2017 Office Visit [facility] Jerad Bell, Cubital tunnel syndrome on l eft (Primary Dx); [address] [facility] OTR/L [facility] Drive [address] [facility] [address] [place]ose [place] [address] [phone] Social History Tobacco Use Types Packs/Day Years [...] no past medical historyon file. 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 TREATMENT INTERVENTION: Therapeutic Exercise CPT 42753 (45 minutes) Exercise: Re-Issued handout, instructed in, [...] instruct in scar management. Patient lives in [place] so would like to minimize visits. Ifprogressing [...] Therapist Signature: Jerad Bell MS, OTR/L # [id number] Visit #2 Payor: [employer] / Plan: [facility] BLUE ADVANTAGE / Product Type: Medicaid / TECHNICIAN documented in this encounter Plan of Treatment Upcoming Encounters Date Type Specialty Care Team Description 09/15/2022 Appointment Orthopedics Delgado Gottlieb MD [address] [place], [place] [address] (Gavi presley) 10/08/2022 Appointment Orthopedics Delgado Gottlieb MD [address] [place], [place] [address] (Gavi presley) 05/27/2023 Appointment Chemo Therapy/Infusion Services documented as of this encounter Visit Diagnoses Diagnosis Cubital tunnel syndrome on left - Primar y Lesion of ulnar nerve [facility] Aftercare following surgery of the [facility] loskeletal system, NEC Loose body of left elbow Loose body in upper arm joint documented in this encounter Care Teams Clinic Licensed Practical Nurse Relationship Specialty Start Date End Date Ladan Song MD PCP - General Internal Medicine 08/18/17 09/29/21 documented as of this encounter
--- OUTSIDE RECORDS SUMMARY | 2022-08-05 10:34 | XMS_ITS | Encounter Summary ---
:1960 Author Organization [facility] Address [address] [place] [address] Care Team Providers Name Role Phone Ladan Song MD Primary Care Provider Unavailable Reason for Visit Reason Comments Hand Therapy Encounter Details Date Type Department Care Team Description 08/25/2017 Office Visit [facility] Sruthi Guardado, Cubital tunnel syndrome on l eft (Primary Dx); [address] [facility] OTR/L Aftercare following surgery of the [facility] loskeletal system; Drive [address] [facility] [place] [address] [phone] Social History Tobacco Use Types Packs/Day Years [...] past medical history on file. 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 Seen after Gemran Miller MD appointment. Patient was accompanied by [...] s/p surgery.. TREATMENT INTERVENTION: OT Evaluation CPT 10280 (20 minutes untimed) A Moderate Complexity Occupational [...] agreement with care plan. Therapeutic Exercise CPT 29493 (15 minutes) Exercise: Issued handout, instructed in, [...] to use for protection. Patient lives in [place] so would like to minimize visits. If progressing well, consider f/u after MD 6 week appointment. (May instruct to begin AAROM to begin around 4-5 weeks if needed) Visit frequency/duration: Patient will be seen 1x/week for 6-8 weeks, unless progressing well. Treatment Plan: AROM, nerve glides, desensitization, strengthening, edema control, scar management, modalities, manual therapy, patient education and training. Therapist Signature: ANDREW Ruth/Violette, [facility] #[id number] Visit #1 Payor: [facility] / Plan: [facility] BLUE ADVANTAGE / Product Type: Medicaid / Physician electronic signature indicates review and certification of therapy plan of care. OR TREASURY ANALYST documented in this encounter Plan of Treatment Upcoming Encounters Date Type Specialty Care Team Description 09/15/2022 Appointment Orthopedics Delgado Gottlieb MD [address] [place], [place] [address] (Gavi presley) 10/08/2022 Appointment Orthopedics Delgado Gottlieb MD [address] [place], [place] [address] (Gavi presley) 05/27/2023 Appointment Chemo Therapy/Infusion Services documented as of this encounter Visit Diagnoses Diagnosis Cubital tunnel syndrome on left - Primar y Lesion of ulnar nerve Aftercare following surgery of the [facility] loskeletal system Aftercare following surgery of the [facility] loskeletal system, NEC Loose body of left elbow Loose body in upper arm joint documented in this encounter Care Teams Rn Neurology Relationship Specialty Start Date End Date Ladan Song MD PCP - General Internal Medicine 08/18/17 09/29/21 documented as of this encounter
--- OUTSIDE RECORDS SUMMARY | 2022-08-05 10:34 | XMS_ITS | Encounter Summary ---
:1960 Author Organization [facility] Address [address] [place] [address] Care Team Providers Name Role Phone Ladan Song MD Primary Care Provider Unavailable Reason for Visit (Routine) - Incomplete Specialty Diagnoses / Procedures Referred By Contact Refer red To Contact Procedures Giovanni Wilson MD Foreign Image(s) CT L-Spine [address] [place] [address] Dr [address] IV Cont [place], [place] [address] Referral ID Status Reason Start Date Expiration Date Visits V isits Requested Authorized [id number] Incomplete 06/07/2018 09/06/2019 1 1 Encounter Details Date Type Department Care Team Description 04/21/2018 Imaging Radiology PACS Giovanni Wilson MD [address] [place] [address] [place] [address] (Gavi rk) Social History Tobacco Use Types [...] 09/15/2022 Appointment Orthopedics Delgado Gottlieb MD [address] [place] [address] D[place] [place] [address] (Wo rk) 10/08/2022 Appointment Orthopedics Delgado Gottlieb MD [address] [place], [place] [address] (Wo rk) 05/27/2023 Appointment [...] provided, they will be located in the ks chai's chart under the Media or Imaging tab. Giovanni Wilson MD RAD NON-REPORTABLES Performing Organization Address City/State/ZIP Code Phon e Number POCT PN POCT documented in this encounter Visit Diagnoses Not on filedocumented in this encounter Care Teams Skein Bleacher Relationship Specialty Start Date End Date Ladan Song MD PCP - General Internal Medicine 08/18/17 09/29/21 documented as of this encounter
--- OUTSIDE RECORDS SUMMARY | 2022-08-05 10:34 | XMS_ITS | Encounter Summary ---
:1960 Author Organization [facility] Address [address] [address] Care Team Providers Name Role Phone Ladan Song MD Primary Care Provider Unavailable Reason for Visit Reason Comments Pre-procedure Call Encounter Details Date Type Department Care Team Description 07/01/2018 Telephone [facility] Vicky Barrios RN Pre-procedure Call [address] [place], [place] [address] Social History Tobacco Use Types [...] Description 09/15/2022 Appointment Orthopedics Delgado Gottlieb MD [address] [place] [address] (Gavi presley) 10/08/2022 Appointment Orthopedics Delgado Gottlieb MD [address] [place] [address] (Gavi presley) 05/27/2023 Appointment Chemo Therapy/Infusion Services documented as of this encounter Visit Diagnoses Not on filedocumented in this encounter Care Teams Oracle Business Intelligence Developer Relationship Specialty Start Date End Date Ladan Song MD PCP - General Internal Medicine 08/18/17 09/29/21 documented as of this encounter
--- OUTSIDE RECORDS SUMMARY | 2022-08-05 10:34 | XMS_ITS | Encounter Summary ---
:1960 Author Organization [facility] Address [address], [place] [address] Care Team Providers Name Role Phone Eric Bower MD Primary Care Provider Encounter Details Date Type Department Care Team Description 08/17/2017 Notes/Orders [facility] ANNI German Rob MD [address] [facility] [address] [place] [address] DR [place] [place] [address] [place], [place] [address] (Gavi presley) Social History Tobacco Use Types [...] 09/15/2022 Appointment Orthopedics Delgado Gottlieb MD [address] [place], [place] [address] (Gavi rk) 10/08/2022 Appointment Orthopedics Delgado Gottlieb MD [address] [place], [place] [address] (Gavi presley) 05/27/2023 Appointment Chemo Therapy/Infusion Services documented as of this encounter Visit Diagnoses Not on filedocumented in this encounter Care Teams Corporate Scheduler Relationship Specialty Start Date End Date Eric Bower MD PCP - General 12/10/10 08/17/[address] [place] [address] documented as of this encounter
--- OUTSIDE RECORDS SUMMARY | 2022-08-05 10:34 | XMS_ITS | Encounter Summary ---
:1960 Author Organization [facility] Address [address] [place] [address] Care Team Providers Name Role Phone Ladan Song MD Primary Care Provider Unavailable Reason for Visit Reason Comments Post-Op Follow Up Call Encounter Details Date Type Department Care Team Description 08/19/2017 Telephone [facility] German Miller, Post -Op Follow Up Call CENTER [address] [facility] [address] [place] [address] [place] [address] [place], [place] [phone] (Wo rk) Social History Tobacco Use Types [...] Please call him to clarify at . DEVELOPMENT CONSULTANT documented in this encounter Plan of Treatment Upcoming Encounters Date Type Specialty Care Team Description 09/15/2022 Appointment Orthopedics Delgado Gottlieb MD [address] [place], [place] [address] (Gavi rk) 10/08/2022 Appointment Orthopedics Delgado Gottlieb MD [address] [place] [address] (Gavi presley) 05/27/2023 Appointment Chemo Therapy/Infusion Services documented as of this encounter Visit Diagnoses Not on filedocumented in this encounter Care Teams Semiconductor Processing Technician Relationship Specialty Start Date End Date Ladan Song MD PCP - General Internal Medicine 08/18/17 09/29/21 documented as of this encounter
--- OUTSIDE RECORDS SUMMARY | 2022-08-05 10:34 | XMS_ITS | Encounter Summary ---
:1960 Author Organization [facility] Address [address] [place] [address] Care Team Providers Name Role Phone Ladan Song MD Primary Care Provider Unavailable Reason for Visit Reason Comments Hand Therapy Encounter Details Date Type Department Care Team Description 09/08/2017 Office Visit [facility] Jerad Bell, Cubital tunnel syndrome on l eft (Primary Dx); [address] [facility] OTR/L Aftercare [facility]; Drive [address] [facility] [address] [place] [address] [phone] Social History Tobacco Use Types Packs/Day Years [...] no past medical historyon file. 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 TREATMENT INTERVENTION: Therapeutic Exercise CPT 26418 (25 minutes) Exercise: All measurements updated today. Edema Management: Pt reports he is satisfied with his current tubi-stage manager supply and does not need additional. Scar [...] long-term goals. The patient is discharged from [facility] hand therapy with a home [...] Therapist Signature: Jerad Bell MS, OTR/L # [id number] Visit #3 Payor: BCBS / Plan: [employer] BLUE ADVANTAGE / Product Type: Medicaid / ER GOODS ASSEMBLER documented in this encounter Plan of Treatment Upcoming Encounters Date Type Specialty Care Team Description 09/15/2022 Appointment Orthopedics Delgado Gottlieb MD [address] [place] [address], [place] [address] (Wo rk) 10/08/2022 Appointment Orthopedics Delgado Gottlieb MD [address] [place], [place] [address] (Wo rk) 05/27/2023 Appointment [...] joint documented in this encounter Care Teams Manager Of Selection And Assessment Relationship Specialty Start Date End Date Ladan Song MD PCP - General Internal Medicine 08/18/17 09/29/21 documented as of this encounter
--- OUTSIDE RECORDS SUMMARY | 2022-08-05 10:34 | XMS_ITS | Encounter Summary ---
:1960 Author Organization [facility] Address [address] [address] Care Team Providers Name Role Phone Ladan Song MD Primary Care Provider Unavailable Reason for Visit Reason Comments ARM PAIN post op Encounter Details Date Type Department Care Team Description 11/17/2017 Office Visit German Wei Status post musculoskeletal system surgery (Primary Dx); MELANIA CMD Aftercare following surgery of the [facility] [address] [facility] [address] [place] [address] [place], [place] [address] [phone] Social History Tobacco Use Types Packs/Day Years [...] Miller MD Hand & Upper Extremity Surgeon Petroleum Refining Firer: Lalitha Watson Please contact Lalitha for all surgery scheduling and administrative questions at [phone] Hand Nurse: Leonardo Yao Please contact Leonardo for all medical related questions at [phone] Medication Requests: Prescriptions are not filled on Weekends or on Weekdays after 3:00PM For all medication refills: Request a refill using [employer] or contact your Pharmacy Please call [phone] to make future appointments. Follow up as needed documented in this encounter Progress Notes German Miller MD - 11/17/2017 9:00 AM CDT [facility] Postoperative Follow-Up 11/17/2017 History of Present Illness: [...] 09/15/2022 Appointment Orthopedics Delgado Gottlieb MD [address] [place], [place] [address] (Gavi presley) 10/08/2022 Appointment Orthopedics Delgado Gottlieb MD [address] [place], [place] [address] (Gavi presley) 05/27/2023 Appointment Chemo Therapy/Infusion Services documented as of this encounter Visit Diagnoses Diagnosis Status post musculoskeletal system surge ry - Primary Aftercare following surgery of the [facility] loskeletal system Aftercare [facility] documented in this encounter Care Teams Cook Restaurant Relationship Specialty Start Date End Date Ladan Song MD PCP - General Internal Medicine 08/18/17 09/29/21 documented as of this encounter
--- OUTSIDE RECORDS SUMMARY | 2022-08-05 10:34 | XMS_ITS | Encounter Summary ---
:1960 Author Organization [facility] Address [address] [place] [address] Care Team Providers Name Role Phone Ladan Song MD Primary Care Provider Unavailable Reason for Visit Reason Comments BACK PAIN, LOW Encounter Details Date Type Department Care Team Description 07/22/2018 [facility] Soumya disc displacement, [address] [facility] [address] [place] [address] lumbar region (Primary [place], [place] Dx) [address] [phone] Social History Tobacco Use Types Packs/Day Years [...] as of this encounter Patient Instructions Patient InstructionsEngeCassi torres, GARAGE ATTENDANT - 07/22/2018 8:[address] Giovanni Wilson MD Orthopeadic Spine Coater Helper: Anya Pittman Please contact Anya for all administrative questions at [phone] Please contact the Spine Nurse for all medical related questions at [phone] Office Hours: Thursday-Thursday and AM Medication Requests: Prescriptions are not filled on Weekends or on Weekdays after 3:00PM For all medication refills: Request a refill using [employer] or contact your Pharmacy ER HELPER documented in this encounter Progress Notes Giovanni Wilson MD - 07/22/2018 8:22 AM CST NAME: LAZ LUNA MR#: [id number] CSN: [id number] AUTHENTICATING CLINICIAN: Giovanni Wlison MD CONFIRM #: [id number] LOC: 711 CLINIC PROGRESS NOTE DATE OF VISIT: 07/22/2018 : 1960 CHIEF COMPLAINT: Follow up lumbar disk protrusion. 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 DAA:MEDQ C: R:07/22/18 11:28 CONFIRM#:[id number] ER HELPER documented in this encounter Plan of Treatment Upcoming Encounters Date Type Specialty Care Team Description 09/15/2022 Appointment Orthopedics Delgado Gottlieb MD [address] [place], [place] [address] (Wo rk) 10/08/2022 Appointment Orthopedics Delgado Gottlieb MD [address] [place], [place] [address] (Wo rk) 05/27/2023 Appointment Chemo Therapy/Infusion Services documented as of this encounter Visit Diagnoses Diagnosis Other intervertebral disc displacement, lumbar region (HRC) - Primary documented in this encounter Care Teams Pie Crust Mixer Relationship Specialty Start Date End Date Ladan Song MD PCP - General Internal Medicine 08/18/17 09/29/21 documented as of this encounter
--- OUTSIDE RECORDS SUMMARY | 2022-08-05 10:35 | XMS_ITS ---
:1960 Author Care Team Providers Name Role Phone [facility] Physical Therapist [phone] Allergies Code Code System Name Reaction [...] CT, Lumbar Spine, W/ Contrast Inspired S [facility] [address] [place], [place] [address] (Work Place) 12/20/2020 XR, Lumbosacral Spine Inspired Spine [facility] [address] [place] [address] (Work Place) Results Lab Results [...]
--- OUTSIDE RECORDS SUMMARY | 2022-08-05 10:35 | XMS_ITS | Encounter Summary ---
:1960 Author Organization [facility] Address [address], [place] [address] Care Team Providers Name Role Phone Eric Bower MD Primary Care Provider Reason for Visit Reason Onset Date Comments RESULTS, TEST 12/17/2016 Encounter Details Date Type Department Care Team Description 12/17/2016 Telephone [facility] ANNI German Rob MD RESULTS, TEST [address] [facility] [address] [facility] [place], [place] [address] [place] [address] [phone] (Wo rk) Social History Tobacco Use Types [...] Gottlieb MD [address] [place], [place] [address] (Wo rk) 10/08/2022 Appointment Orthopedics Delgado Gottlieb MD [address] [place] [address] (Wo rk) 05/27/2023 Appointment Chemo Therapy/Infusion Services documented as of this encounter Visit Diagnoses Not on filedocumented in this encounter Care Teams Cake Wrapper Relationship Specialty Start Date End Date Eric Bower MD PCP - General 12/10/10 08/17/[address] [phone] documented as of this encounter
--- OUTSIDE RECORDS SUMMARY | 2022-08-05 10:35 | XMS_ITS | Encounter Summary ---
:1960 Author Organization [employer] Address [address], [place] [address] Care Team Providers Name Role Phone Eric Bower MD Primary Care Provider Reason for Visit Reason Onset Date Comments QUESTIONS, GENERAL 11/26/2016 Encounter Details Date Type Department Care Team Description 11/26/2016 Telephone [facility] ANNI German Rob, QUESTIONS, GENERAL [address] [facility] [place], [place] [address] [address] [facility] [phone] [place], [place] [address] (Wo rk) Social History Tobacco Use Types [...] 12/11/2016 1:20 PM Rahel Decker MD [facility] Freda Yao RN - 11/26/2016 12:16 PM CDT Called 's cell number. LM on to call back to [phone]. Freda Yao RN - 11/26/2016 9:07 AM CDT Pt calling via [employer]. States he has seen [facility] for his elbow. A CT was done and he has been referred to have an EMG. He has had to cancel this appt twice. He has been told that the EMG can be done here at [facility]. He would rather do this here as it is closer and [facility]. Wanting to know why he is being sent to [place] when this can be done here. Routing to [facility]. Can this be scheduled here? documented in this encounter Plan of Treatment Upcoming Encounters Date Type Specialty Care Team Description 09/15/2022 Appointment Orthopedics Delgado Gottlieb MD [address] [place], [place] [address] (Gavi presley) 10/08/2022 Appointment Orthopedics Delgado Gottlieb MD [address] [place], [place] [address] (Gavi presley) 05/27/2023 Appointment Chemo Therapy/Infusion Services documented as of this encounter Visit Diagnoses Not on filedocumented in this encounter Care Teams Automotive Parts Counterperson Relationship Specialty Start Date End Date Eric Bower MD PCP - General 12/10/10 08/17/[address] [place] [phone] documented as of this encounter
--- OUTSIDE RECORDS SUMMARY | 2022-08-05 10:35 | XMS_ITS | Encounter Summary ---
:1960 [facility] Address [address], [place] [address] Care Team Providers Name Role Phone Eric Bower MD Primary Care Provider Encounter Details Date Type Department Care Team Description 09/07/1989 PN Conversion Only CLEANER AND PRESSER [address] [facility] Eric Bower MD 3800 [facility] [address] [place] [address] (Gavi presley) Social History Tobacco [...] 09/15/2022 Appointment Orthopedics Delgado Gottlieb MD [address] [place], [place] [address] (Gavi rk) 10/08/2022 Appointment Orthopedics Delgado Gottlieb MD [address] [place], [place] [address] (Gavi presley) 05/27/2023 Appointment Chemo Therapy/Infusion Services documented as of this encounter Visit Diagnoses Not on filedocumented in this encounter Care Teams Hide Washer Relationship Specialty Start Date End Date Eric Bower MD PCP - General 12/10/10 08/17/17 270 [facility] [address] [place] [address] documented as of this encounter
--- OUTSIDE RECORDS SUMMARY | 2022-08-05 10:35 | XMS_ITS | Encounter Summary ---
:1960 Author Organization [facility] Address [address] [place] [address] Care Team Providers Name Role Phone Eric Bower MD Primary Care Provider Reason for Visit Reason Comments HAND PAIN left CTS Encounter Details Date Type Department Care Team Description 01/06/2017 Office Visit TRIGerman Watkins, Left carpal tunnel syndrome (Primary Dx); CENTER Left cubital tunnel syndrome; [address] [facility] [address] [place] [address] Left elbow arthritis with loose bodies [place], [place] [address] [place], [place] [phone] (Wo rk) Social History Tobacco Use Types [...] Miller MD Hand & Upper Extremity Surgeon Hook Up Driver: Lalitha Watson Please contact Lalitha for all surgery scheduling and administrative questions at [phone] Hand Nurse: Leonardo Yao Please contact Leonardo for all medical related questions at [phone] Medication Requests: Prescriptions are not filled on Weekends or on Weekdays after 3:00PM For all medication refills: Request a refill using Linkytt or contact your Pharmacy Please call [phone] to make future appointments. Follow up for surgery as scheduled documented in this encounter Progress Notes German Miller MD - 01/06/2017 6:22 AM CDT [facility] Follow-Up 01/06/2017 Chief Complaint: Left Elbow Pain [...] 09/15/2022 Appointment Orthopedics Delgado Gottlieb MD [address] [place], [place] [address] (Wo rk) 10/08/2022 Appointment Orthopedics Delgado Gottileb MD [address] [place], [place] [address] (Wo rk) 05/27/2023 Appointment Chemo Therapy/Infusion Services documented as of this encounter Visit Diagnoses Diagnosis Left carpal tunnel syndrome - Primary Carpal tunnel syndrome Left cubital tunnel syndrome Left elbow arthritis with loose bodies documented in this encounter Care Teams Painter And Body Work Relationship Specialty Start Date End Date Eric Bower MD PCP - General 12/10/10 08/17/[address] [place] [phone] documented as of this encounter
--- OUTSIDE RECORDS SUMMARY | 2022-08-05 10:35 | XMS_ITS | Encounter Summary ---
:1960 [facility] Address [address] [place] [address] Care Team Providers Name Role Phone Eric Bower MD Primary Care Provider Reason for Visit Procedure/Equipment (Routine) - Incomplete Specialty Diagnoses / Procedures Referred By Contact Refer red To Contact Diagnoses Arthritis of left elbow German Miller MD Procedures CT Elbow Lt WO IV Cont [address] [facility] [place], [place] [address] Referral ID Status Reason Start Date Expiration Date Visits V isits Requested Authorized [id number] Incomplete 11/03/2016 02/02/2018 1 1 Encounter Details Date Type Department Care Team Description 11/03/[address] [place] [address] Scan German Miller, Arthritis of left elbow [address] [place] [address] [address] [facility] [phone] [place], [place] [address] (Wo rk) Social History Tobacco Use Types [...] 09/15/2022 Appointment Orthopedics Delgado Gottlieb MD [address] [place], [place] [address] (Wo rk) 10/08/2022 Appointment Orthopedics Delgado Gottlieb MD [address] [place], [place] [address] (Gavi presley) 05/27/2023 Appointment Chemo Therapy/Infusion Services documented as of this encounter Procedures Procedure Name Priority Date/Time Associated Diagnosis Comme nts CT ELBOW LT WO IV Routine 11/03/2016 1:56 PM Arthritis of left Results for this CONT SCREW MACHINE OPERATOR SWISS TYPE elbow procedure are i n the results section. documented in this encounter Results CT Elbow Lt WO IV Cont (11/03/2016 1:56 PM SCREW MACHINE OPERATOR SWISS TYPE) Anatomical Region Laterality Modality Upper Extremity, Forearm, Arm, Elbow Com puted Tomography Specimen (Source) Anatomical Collection Method Collection Time Re ceived Time Location / / Volume Laterality 11/03/2016 1:32 PM SCREW MACHINE OPERATOR SWISS TYPE Impressions 11/03/2016 2:49 PM SCREW MACHINE OPERATOR SWISS TYPE IMPRESSION: ??Moderate osteoarthritic changes and multiple ossific joint bodies. Narrative 11/03/2016 2:49 PM SCREW MACHINE OPERATOR SWISS TYPE TECHNIQUE: ??Thin section axial scans were obtained [...] elbow documented in this encounter Care Teams Head Athletic Trainer Relationship Specialty Start Date End Date Eric Bower MD PCP - General 12/10/10 08/17/[address] [phone] documented as of this encounter
--- OUTSIDE RECORDS SUMMARY | 2022-08-05 10:35 | XMS_ITS | Encounter Summary ---
:1960 [facility] Address [address] [place] [address] Care Team Providers Name Role Phone Eric Bowre MD Primary Care Provider Reason for Visit Procedure/Equipment (Routine) - Incomplete Specialty Diagnoses / Procedures Referred By Contact Refer red To Contact Diagnoses Arthritis of left elbow German Miller MD Procedures XR Elbow Lt 3+ Views [address] [facility] [place] [address] Referral ID Status Reason Start Date Expiration Date Visits V isits Requested Authorized [id number] Incomplete 11/03/2016 02/02/2018 1 1 Encounter Details Date Type Department Care Team Description 11/03/2016 Imaging [facility] German Miller MD Left elbow pain [address] [facility] [address] [facility] [place] [address] [place] [address] [phone] (Wo rk) Social History Tobacco Use Types [...] 09/15/2022 Appointment Orthopedics Delgado Gottlieb MD [address] [place], [place] [address] (Wo rk) 10/08/2022 Appointment Orthopedics Delgado Gottlieb MD [address] [place], [place] [address] (Wo rk) 05/27/2023 Appointment Chemo Therapy/Infusion Services documented as of this encounter Procedures Procedure Name Priority Date/Time Associated Diagnosis Comme nts XR ELBOW LT 3+ Routine 11/03/2016 11:04 AM Left elbow pain Res ults for this VIEWS COMPRESSED AIR PILE DRIVER OPERATOR procedure are i n the results section. documented in this encounter Results XR Elbow Lt 3+ Views (11/03/2016 11:04 AM COMPRESSED AIR PILE DRIVER OPERATOR) Anatomical Region Laterality Modality Upper Extremity, Elbow Digital Radiograp hy Specimen (Source) Anatomical Location Collection Method / Collectio n Time Received Time / Laterality Volume Narrative 11/03/2016 3:31 PM COMPRESSED AIR PILE DRIVER OPERATOR 3 views of the left elbow show [...] arm documented in this encounter Care Teams Paperhanger Apprentice Relationship Specialty Start Date End Date Eric Bower MD PCP - General 12/10/10 08/17/[address] [place] [phone] documented as of this encounter
--- OUTSIDE RECORDS SUMMARY | 2022-08-05 10:35 | XMS_ITS | Encounter Summary ---
:1960 Author Organization [facility] Address [address], [place] [address] Care Team Providers Name Role Phone Eric Bower MD Primary Care Provider Reason for Referral Procedure/Equipment (Routine) - Incomplete Specialty Diagnoses / Procedures Referred By Contact Refer red To Contact Diagnoses Arthritis of left elbow German Miller MD Procedures CT Elbow Lt WO IV Cont [address] [facility] [address] [place] [address] Referral ID Status Reason Start Date Expiration Date Visits V isits Requested Authorized [id number] Incomplete 11/03/2016 02/02/2018 1 1 LOCK WAISTLINE JOINER Procedure/Equipment (Routine) - Incomplete Specialty Diagnoses / Procedures Referred By Contact Refer red To Contact Diagnoses Arthritis of left elbow German Miller MD Procedures XR Elbow Lt 3+ Views [address] [facility] [address] [place] [address] Referral ID Status Reason Start Date Expiration Date Visits V isits Requested Authorized [id number] Incomplete 11/03/2016 02/02/2018 1 1 LOCK WAISTLINE JOINER Reason for Visit Reason Comments Elbow Pain Left Encounter Details Date Type Department Care Team Description 11/03/2016 Surgical Consult [facility] German Miller hritis of left elbow (Primary Dx); MELANIA Motta MD 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 German Miller MD Hand & Upper Extremity Surgeon Nursing Service Administrator: Lalitha Watson Please contact Lalitha for all surgery scheduling and administrative questions at [phone] Hand Nurse: Leonardo Yao Please contact Leonardo for all medical related questions at [phone] Medication Requests: Prescriptions are not filled on Weekends or on Weekdays after 3:00PM For all medication refills: Request a refill using CloudRunner I/Ohart or contact your Pharmacy Please call [phone] to make future appointments. Schedule CT scan and EMG Follow up for results as discussed Your Provider has ordered an EMG: Location: [facility] [address], [place] [address] Provider: Dr. Thompson Test Ordered: EMG Nerve Conduction Study Please be aware: Dr. Thompson's office will call you within 24 hours. If you have not heard from their office please call [phone]. To Do List: Please make an appointment with your referring provider in clinic to review the results. LOCK WAISTLINE JOINER documented in this encounter Progress Notes German Miller MD - 11/03/2016 6:31 AM CST [facility] [place] Consultation 11/03/2016 Chief Complaint: Left Elbow Pain [...] motion. Ed has been previously evaluated by [facility] for this same problem where they recommended [...] with the patient; this is located in [facility] in [facility]. Review of Systems: A 15-point review was [...] 11/03/2016 at 11:23 AM. German Miller MD LOCK WAISTLINE JOINER documented in this encounter Plan of Treatment Upcoming Encounters Date Type Specialty Care Team Description 09/15/2022 Appointment Orthopedics Delgado Gottlieb MD [address] [place] [address] (Wo rk) 10/08/2022 Appointment Orthopedics Delgado Gottlieb MD [address] [place] [address] (Gavi presley) 05/27/2023 Appointment Chemo Therapy/Infusion Services documented as of this encounter Results CT Elbow Lt WO IV Cont (11/03/2016 1:56 PM OVERLOCK WAISTLINE JOINER) Anatomical Region Laterality Modality Upper Extremity, Forearm, Arm, Elbow Com puted Tomography Specimen (Source) Anatomical Collection Method Collection Time Re ceived Time Location / / Volume Laterality 11/03/2016 1:32 PM OVERLOCK WAISTLINE JOINER Impressions 11/03/2016 2:49 PM OVERLOCK WAISTLINE JOINER IMPRESSION: ??Moderate osteoarthritic changes and multiple ossific joint bodies. Narrative 11/03/2016 2:49 PM OVERLOCK WAISTLINE JOINER TECHNIQUE: ??Thin section axial scans were obtained [...] Elbow Lt 3+ Views (11/03/2016 11:04 AM OVERLOCK WAISTLINE JOINER) Anatomical Region Laterality Modality Upper Extremity, Elbow Digital Radiograp hy Specimen (Source) Anatomical Location Collection Method / Collectio n Time Received Time / Laterality Volume Narrative 11/03/2016 3:31 PM OVERLOCK WAISTLINE JOINER 3 views of the left elbow show [...] elbow documented in this encounter Care Teams Raw Stock Dyeing Machine Tender Relationship Specialty Start Date End Date Eric Bower MD PCP - General 12/10/10 08/17/[address] [place] [phone] documented as of this encounter
--- OUTSIDE RECORDS SUMMARY | 2022-08-05 10:35 | XMS_ITS | Encounter Summary ---
:1960 [facility] Address [address] [place] [address] Care Team Providers Name Role Phone Eric Bower MD Primary Care Provider Reason for Visit Reason Comments Procedure Bilateral upper extremity EM G Encounter Details Date Type Department Care Team Description 12/11/2016 Procedure Visit [facility] Rahel Decker (Bilateral CENTER Imani Conteh MD upper extremity EMG) [address] [place] [address] [phone] Social History Tobacco Use Types Packs/Day Years [...] Exam Date: 12/11/2016 Name: Laz Luna MR#: [id number] Gender: Male Date of : 1960 Age: [...] 09/15/2022 Appointment Orthopedics Delgado Gottlieb MD [address] [place] [address] (Gavi presley) 10/08/2022 Appointment Orthopedics Delgado Gottlieb MD [address] [place], [place] [address] (Gavi presley) 05/27/2023 Appointment Chemo Therapy/Infusion Services documented as of this encounter Visit Diagnoses Diagnosis Carpal tunnel syndrome of left wrist [G5 6.02] - Primary Carpal tunnel syndrome 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
== END 2022-08-05 10:05 | disposition home or self-care (01) ==
PROVIDERS: PCP Family Medicine; Visit Provider Nurse Practitioner Family
DX: E11.622 Type 2 diabetes mellitus with other skin ulcer (principal); L89.894 Pressure ulcer of other site, stage 4; R26.9 Unspecified abnormalities of gait and mobility
CPT/HCPCS: 11042

== ENCOUNTER 2022-08-12 09:00 | Outpatient (CLI) | payer BC, SELFPAY ==
--- OUTSIDE RECORDS SUMMARY | 2022-08-12 09:14 | XMS_ITS | Encounter Summary ---
:1960 Author Organization [facility] Address [address] [place] [address] Care Team Providers Name Role Phone Cintia Cobb M.D. Primary Care Provider [phone] Reason for Visit Reason Comments Quality D5 Encounter Details Date Type Department Care Team Description 12/06/2021 Clinical Communication Department of [facility], [facility] D5 Medicine, Jose Daniel Piper M.D. [address] [address] [place], [place] [phone] (Work) [phone] Social History Tobacco Use Types Packs/Day Years [...] documented as of this encounter Care Teams Utilization Specialist Relationship Specialty Start Date End Date Cintia Cobb M.D. PCP - General 02/19/17 02/20/[address] [place] [phone] documented as of this encounter
--- OUTSIDE RECORDS SUMMARY | 2022-08-12 09:14 | XMS_ITS | Encounter Summary ---
:1960 Author Organization [facility] Address [address] [place] [address] Care Team Providers Name Role Phone Cintia Cobb M.D. Primary Care Provider [phone] Reason for Visit Physical Therapy (Routine) - Canceled Specialty Diagnoses / Procedures Referred By Contact Refer red To Contact Diagnoses Fracture Femur Lower Multiple Closed Initial Left (HCC) Nathen Burger M.D. [facility] Procedures PT Ongoing treatment Counts include 234 beds at the [facility] [address] [address] Referral ID Status Reason Start Date Expiration Date Visits V isits Requested Authorized [id number] Canceled 10/22/2021 10/22/2022 40 40 Encounter Details Date Type Department Care Team Description 12/09/2021 Clinical Support Department of Gustavo Burger M.D. [address] [place] [address] Fracture Femur Rehabilitation Lesli Dias, P.T. [address] [place] [phone] Lower Multiple Services in [place] Closed In itial [place], [place] ([facility]) [address] [place] [phone] Social History Tobacco Use Types Packs/Day [...] Lower Multiple Closed Initial Left (HCC) Payor: [employer] [place] CARE / Plan: [facility] BLUE PLUS HMO / Product [...] of this encounter Care Teams Front Desk Person Relationship Specialty Start Date End Date Cintia Cobb M.D. PCP - General 02/19/17 02/20/[address] [place] [phone] documented as of this encounter
--- OUTSIDE RECORDS SUMMARY | 2022-08-12 09:14 | XMS_ITS | Encounter Summary ---
:1960 Author Organization [facility] Address [address] [place] [address] Care Team Providers Name Role Phone Cintia Cobb M.D. Primary Care Provider [phone] Reason for Visit Physical Therapy (Routine) - Canceled Specialty Diagnoses / Procedures Referred By Contact Refer red To Contact Diagnoses Fracture Femur Lower Multiple Closed Initial [facility] ([facility]) Nathen Burger M.D. [facility] Procedures PT Ongoing treatment [facility] [address] [address] Referral ID Status Reason Start Date Expiration Date Visits V isits Requested Authorized [id number] Canceled 10/22/2021 10/22/2022 40 40 Encounter Details Date Type Department Care Team Description 12/04/2021 Clinical Support Department of Gustavo Burger M.D. [address] [address] Fracture Femur Rehabilitation Emelia Acosta, P.TPili Lower Multiple Services in [facility] [place], [place] ([facility]) [address] [place] [phone] Social History Tobacco Use Types Packs/Day Years [...] Lower Multiple Closed Initial Left (HCC) Payor: [employer] [place] CARE / Plan: [place] BLUE PLUS [...] and has additional questions pertaining to discussed [place] that was not provided to him. Contact [...] documented as of this encounter Care Teams Supplier Quality Specialist Relationship Specialty Start Date End Date Cintia Cobb M.D. PCP - General 02/19/17 02/20/[address] [phone] documented as of this encounter
--- OUTSIDE RECORDS SUMMARY | 2022-08-12 09:14 | XMS_ITS | Encounter Summary ---
:1960 Author Organization [facility] Address [address] [place] [address] Care Team Providers Name Role Phone Cintia Cobb M.D. Primary Care Provider [phone] Reason for Visit Physical Therapy (Routine) - Canceled Specialty Diagnoses / Procedures Referred By Contact Refer red To Contact Diagnoses Fracture Femur Lower Multiple Closed Initial Left (HCC) Nathen Burger M.D. [facility] Procedures PT Ongoing treatment [facility] [address] [address] Referral ID Status Reason Start Date Expiration Date Visits V isits Requested Authorized [id number] Canceled 10/22/2021 10/22/2022 40 40 Encounter Details Date Type Department Care Team Description 12/13/2021 Clinical Support Department of Gustavo Burger M.D. [address] [address] Fracture Femur Rehabilitation Lesli Dias, P.T. [address] [place] [phone] Lower Multiple Services in [place] Closed In itial [place], [place] ([facility]) [address] [place] [phone] Social History Tobacco Use Types Packs/Day [...] Lower Multiple Closed Initial Left (HCC) Payor: [employer] [place] CARE / Plan: [place] BLUE PLUS HMO [...] LBP TREATMENT Treatment today consisted of: Performed??the QualMetrix-Fit Total body ergometer times 15??minutes at a [...] documented as of this encounter Care Teams Loft Rigger Relationship Specialty Start Date End Date Cintia Cobb M.D. PCP - General 02/19/17 02/20/[address] [phone] documented as of this encounter
--- OUTSIDE RECORDS SUMMARY | 2022-08-12 09:14 | XMS_ITS | Encounter Summary ---
:1960 Author Organization [facility] Address [address] [place] [address] Care Team Providers Name Role Phone Cintia Cobb M.D. Primary Care Provider [phone] Reason for Visit Physical Therapy (Routine) - Canceled Specialty Diagnoses / Procedures Referred By Contact Refer red To Contact Diagnoses Fracture Femur Lower Multiple Closed Initial Left (HCC) Nathen Burger M.D. [facility] Procedures PT Ongoing treatment [facility] [address] [address] Referral ID Status Reason Start Date Expiration Date Visits V isits Requested Authorized [id number] Canceled 10/22/2021 10/22/2022 40 40 Encounter Details Date Type Department Care Team Description 12/05/2021 Clinical Support Department of Gustavo Burger M.D. [address] [address] Fracture Femur Rehabilitation Lesli Dias, P.T. [address] [place] [phone] Lower Multiple Services in [place] Closed In itial [place], [place] ([facility]) [address] [place] [phone] Social History Tobacco Use Types Packs/Day [...] Lower Multiple Closed Initial Left (HCC) Payor: [employer] [facility] CARE / Plan: [facility] BLUE PLUS HMO / Product Type: [...] pain TREATMENT Treatment today consisted of: Performed??the [employer]-Fit Total body ergometer times 10??minutes at a [...] documented as of this encounter Care Teams Physician Assistant Certified Relationship Specialty Start Date End Date Cintia Cobb M.D. PCP - General 02/19/17 02/20/[address] [phone] documented as of this encounter
--- OUTSIDE RECORDS SUMMARY | 2022-08-12 09:14 | XMS_ITS | Encounter Summary ---
:1960 Author Organization [facility] Address [address] [place] [address] Care Team Providers Name Role Phone Cintia Cobb M.D. Primary Care Provider [phone] Reason for Referral Outpatient (Routine) - Authorized Specialty Diagnoses / Procedures Referred By Contact Refer red To Contact Family Medicine Cintia Cobb SE, M.D. [address] [place] [phone] Referral ID Status Reason Start Date Expiration Date Visits V isits Requested Authorized [id number] Authorized 01/01/2022 01/01/2023 1 1 utpatient (Routine) - Authorized Specialty Diagnoses / Procedures Referred By Contact Fatuma almodovar To Contact Diagnoses Preoperative Exam Cintia Cobb SE Procedures ECG 12 Lead Keely Piper [address] [place] [phone] Referral ID Status Reason Start Date Expiration Date Visits V isits Requested Authorized [id number] Authorized 12/31/2021 12/31/2022 1 1 Reason for Visit Reason Comments Follow-up D5 Outpatient (Routine) - Closed Specialty Diagnoses / Procedures Referred By Contact Refer red To Contact Family Medicine [facility] DREW Piper M.D. [address] [place] [address] D[place]W [place] [phone] Referral ID Status Reason Start Date Expiration Date Visits Requ ested Visits Authorized [id number] Closed 08/13/2021 08/13/2022 1 1 Encounter Details Date Type Department Care Team Description 12/31/2021 Office Visit Department of Family Tigist Cobb reoperative Exam (Primary Dx); Medicine, Jose Daniel Piper M.D. 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 Cesar Scherer at [facility] in [facility] on January 27. He has [...] been seeing the wound care nurse at [facility] and states that this has been [...] working with the wound care clinic through [facility]. There has been significant improvement in his wound. Hopefully it will be healed by the time of surgery. They do state that there were some vascular abnormalities, potentially varicose veins, on ultrasound for which he has beenreferred to the [facility]. #7 Flutter Atrial (HCC) #8 Pacemaker Cardiac [...] Name Type Priority Associated Diagnoses Order S [facility] Basic Metabolic Panel Lab Routine Preoperative Exam E xpected: 12/31/2021, Expires: 2022 Hemoglobin A1c Lab Routine Diabetes Mellitus Type 2 E xpected: 07/03/2022 With Diabetic Neuropathy (Ap proximate), (HCC) Expires: 2022 Hemoglobin Lab Routine Anemia Microcytic Expected: 07/03/2022 (Approximate), Expires: 2022 Scheduled Referrals Name Type Priority Associated Diagnoses Order S [facility] Family Medicine Outpatient Referral Routine Expec ti: [...] M.D. LAB BLOOD ADD-ON Performing Organization Address City/State/[facility] Code Phon e Number [address] [address] [place] [address] [address] Lipid Panel (12/31/2021 7:28 PM CDT) [...] M.D. LAB BLOOD ADD-ON Performing Organization Address City/[facility]/ZIP Code Phon e Number [facility]- [address] [place] [address] [place] [address] [place] [address] System in [place] [address] Bl PSA (Prostate-Specific Antigen) Screen (12/31/2021 7:28 PM CDT) athologist Signature Prostate-Specif 0.92 <=4.5 ng/mL 01/01/2022 RDW ic Ag 1:39 PM CDT Comment: ----ADDITIONAL INFORMATION---- The testing method is an electrochemilum inescence assay manufactured by [employer] and performed on the Modular [...] Organization Address City/State/ZIP Code Phon e Number [facility]- [address] [place], [place] [address] [facility] [place] [place] [address] System in [place] [address] (ABNORMAL) CBC without Differential [...] Organization Address City/State/ZIP Code Phon e Number [address] [address] [place] [address] [address] ECG 12 Lead (12/31/2021 7:16 PM CDT) P athologist Signature Ventricular Rate 81 BPM MUSE ECG/Min WI Interval 172 ms MUSE QRSD Interval 172 ms MUSE QT Interval 400 ms MUSE QTC Interval 465 ms MUSE P Doucette 37 degrees MUSE R Doucette 269 degrees MUSE T Wave Doucette 83 degrees MUSE Specimen Anatomical Collection Method [...] documented as of this encounter Care Teams Lens Polisher Hand Relationship Specialty Start Date End Date Cintia Cobb M.D. PCP - General 02/19/17 02/20/[address] [place] [phone] documented as of this encounter
--- OUTSIDE RECORDS SUMMARY | 2022-08-12 09:14 | XMS_ITS | Encounter Summary ---
:1960 Author Organization [facility] Address [address] [place] [address] Care Team Providers Name Role Phone Cintia Cobb M.D. Primary Care Provider [phone] Encounter Details Date Type Department Care Team Description 01/01/2022 Clinical Communication Department of [facility], Jose Daniel Piper M.D. [address] [address] [place], [place] [phone] (Work) [phone] Social History Tobacco Use Types Packs/Day Years [...] Date/Date of Appointment: 01/27/22 Location of Appointment/Surgery: [facility] Provider name or Department: Cesar Scherer MD, [facility] Address: [address] [place] [address] documented in this encounter Plan of Treatment Not on filedocumented as of this encounter Visit Diagnoses Not on filedocumented in this encounter Additional Health Concerns Assessment Noted Time PHQ-9 Depression Total Score: 18 02/14/2013 9:53 AM CD T documented as of this encounter Care Teams Attendant Coin Operated Laundry Relationship Specialty Start Date End Date Cintia Cobb M.D. PCP - General 02/19/17 02/20/[address] [place] [phone] documented as of this encounter
--- OUTSIDE RECORDS SUMMARY | 2022-08-12 09:14 | XMS_ITS | Encounter Summary ---
:1960 Author Organization [facility] Address [address] [place] [address] Care Team Providers Name Role Phone Elsewhere, Pcp Primary Care Provider Unavailable Reason for Visit Reason Comments Knee Injury Encounter Details Date Type Department Care Team Description 2022 Nurse Triage Department of [facility] Lesli Anguiano, Knee Injury Medicine in [facility] [address] [place] [address] Social History Tobacco Use Types [...] (bear weight) or walk Protocols used: Knee [place]weed-HNDMA-[place] Care Advice Patient/Caregiver understands and will follow [...] documented as of this encounter Care Teams Retail Field Supervisor Relationship Specialty Start Date End Date Elsewhere, Pcp PCP - General Internal Medicine 06/21/22 documented as of this encounter
--- OUTSIDE RECORDS SUMMARY | 2022-08-12 09:14 | XMS_ITS | Encounter Summary ---
:1960 Author Organization [facility] Address [address] [place] [address] Care Team Providers Name Role Phone Cintia Cobb M.D. Primary Care Provider [phone] Reason for Visit Physical Therapy (Routine) - Canceled Specialty Diagnoses / Procedures Referred By Contact Refer red To Contact Diagnoses Fracture Femur Lower Multiple Closed Initial Left (HCC) Nathen Burger M.D. [facility] Procedures PT Ongoing treatment [facility] [address] [address] Referral ID Status Reason Start Date Expiration Date Visits V isits Requested Authorized [id number] Canceled 10/22/2021 10/22/2022 40 40 Encounter Details Date Type Department Care Team Description 12/17/2021 Clinical Support Department of Gustavo Burger M.D. [address] [address] Fracture Femur Rehabilitation Lesli Dias, P.T. [address] [place] [phone] Lower Multiple Services in [place] Closed In itial [place], [place] ([facility]) [address] [place] [phone] Social History Tobacco Use Types Packs/Day [...] Lower Multiple Closed Initial Left (HCC) Payor: [employer] [facility] / Plan: [facility] BLUE PLUS HMO / Product Type: Medicaid [...] documented as of this encounter Care Teams Soldering Machine Operator Helper Relationship Specialty Start Date End Date Cintia Cobb M.D. PCP - General 02/19/17 02/20/[address] [phone] documented as of this encounter
--- OUTSIDE RECORDS SUMMARY | 2022-08-12 09:14 | XMS_ITS | Clinical Summary ---
:1960 Author Organization [facility] Address [address] [place] [address] Care Team Providers Name Role Phone Elsewhere, Pcp Primary Care Provider Unavailable Source Comments Patient records contain information from all sites at [facility]. For routine questions regarding patient records, call [phone] during business hours, M-F 8:00 AM - 5:00 PM Central Time. Record requests for emergency care only can be directed to [phone] at any time.[facility] Allergies Active Allergy Reactions Severity Noted [...] Added automatically from request for emiliano rossi [id number] Fracture Hip Closed Initial Left 08/12/2019 021 [...] (178 lb 9.2 oz) 09/30/2021 8:25 AM AUTOMOTIVE LIGHT MECHANIC Height 180.3 cm (5' 11) 06/21/2022 9:24 AM CDT Body Mass Index 24.22 08/12/2019 12:43 PM AUTOMOTIVE LIGHT MECHANIC Plan of Treatment Health Maintenance Due Date [...] history exists Medical Devices Implanted Type Area Shadowgraph Operator Device Shelf Model / Identifier Expiration Serial / Date Lot Lead 4076-52 Capsurefix Novus - Patel [id number] Cardiac Lead Heart Me dtronic / Implanted: Qty: 1 on 01/19/2017 [id number] / Description: Device Shadowgraph Operator - Datto Body Location - Other. Right Atrial. Device Status Text - CARD LEAD-1 [id number]. Clip Device Hemostatic 235 - [id number] Hardware e.g. N/A: [place] [id number] 01/12/2021 [id number] / Implanted: Qty: 1 on 04/13/2018 by Rene Skinner M.D. at [facility] pins/screws/rods Stom[employer] / [id number] Description: Resolution clip Scrw Lck Mariano Ti T25 5x38 - [id number] Hardware e.g. Left: Hip Depuy Synthes [id number] / Implanted: Qty: 1 on 08/13/2019 by John Sebastian M.D. at [facility] pins/screws/rods / Pacemaker Chuy Toribio L101 - Patel [id number] Pacemaker Other/Legacy - Caleb ton / Implanted: Qty: 1 on 01/19/2017 See Implant Scientific [id number] / Description Description: Device Shadowgraph Operator - NayanaJumia. Body Location - Other. Left. Device Status Text - [id number]. Procedures Procedure Name Priority Date/Time Associated Comments [...] / Group Dates BLUE CROSS BCBS BLUE [id number] 2018-Prese ATTN: Angélica contreras HMO BLUE SHIELD PLUS HMO nt [facility] [place] [address] [address] [place] [address] Advance Directives For more information, please contact: [phone] Documents on File Type Date Recorded Patient Highway Maintainer Explanati on Advance Directives 11/17/2016 12:00 AM LegAkita doc ument. See document viewer. Advance Directives 09/19/2016 12:00 AM LegAkita doc ument. See document viewer. Latest Code [...] 4:16 PM 04/15/2018 9:11 PM Care Teams Telegraph Repeater Installer Relationship Specialty Start Date End Date Elsewhere, Pcp PCP - General Internal Medicine 06/21/22
--- OUTSIDE RECORDS SUMMARY | 2022-08-12 09:14 | XMS_ITS | Encounter Summary ---
:1960 Author Organization [facility] Address [address] [place] [address] Care Team Providers Name Role Phone Cintia Cobb M.D. Primary Care Provider [phone] Reason for Visit Reason Comments Med Refill Encounter Details Date Type Department Care Team Description 12/18/2021 Refill Department of [facility] Angélica Cobb Med Refill Medicine, Jose Daniel Piper M.D. Clinic, in [address] [address] [place], [place] [address] [phone] Social History Tobacco Use Types Packs/Day Years [...] documented as of this encounter Care Teams Preboarder Relationship Specialty Start Date End Date Cintia Cobb M.D. PCP - General 02/19/17 02/20/[address] [place] [phone] documented as of this encounter
--- OUTSIDE RECORDS SUMMARY | 2022-08-12 09:14 | XMS_ITS | Encounter Summary ---
:1960 Author Organization [facility] Address [address] [place] [address] Care Team Providers Name Role Phone Cintia Cobb M.D. Primary Care Provider [phone] Reason for Visit Physical Therapy (Routine) - Canceled Specialty Diagnoses / Procedures Referred By Contact Refer red To Contact Diagnoses Fracture Femur Lower Multiple Closed Initial Left (HCC) Nathen Burger M.D. [facility] Procedures PT Ongoing treatment [facility]0 [address] [address] Referral ID Status Reason Start Date Expiration Date Visits V isits Requested Authorized [id number] Canceled 10/22/2021 10/22/2022 40 40 Encounter Details Date Type Department Care Team Description 12/12/2021 Clinical Support Department of Gustavo Burger M.D. [address] [address] Fracture Femur Rehabilitation Lesli Dias, P.T. [address] [place] [phone] Lower Multiple Services in [place] Closed In itial [place], [place] ([facility]) [address] [place] [phone] Social History Tobacco Use Types Packs/Day [...] Lower Multiple Closed Initial Left (HCC) Payor: [employer] [facility] / Plan: BC BLUE PLUS [...] today. TREATMENT Treatment today consisted of: Performed??the TastyKhana-Fit Total body ergometer times 15??minutes at a [...] documented as of this encounter Care Teams Environmental Property Assessor Relationship Specialty Start Date End Date Cintia Cobb M.D. PCP - General 02/19/17 02/20/[address] [address] documented as of this encounter
--- OUTSIDE RECORDS SUMMARY | 2022-08-12 09:14 | XMS_ITS | Encounter Summary ---
:1960 Author Organization [facility] Address [address] [place] [address] Care Team Providers Name Role Phone Elsewhere, Pcp Primary Care Provider Unavailable Reason for Visit Reason Comments Fall Pt arrived via [facility] foll owing a fall at a farm site. Pt reported he landed on his knee. Encounter Details Date Type Department Care Team Description 06/21/[address] [facility] Billy Camacho istory Of Falling System [place] Mary Carmen Munguia (Primary Dx) Emergency Department [address] [address] [place] [address] [place], [place] [phone] (Wo rk) [address] [phone] Social History Tobacco Use Types Packs/Day Years [...] year old man who presented to the [facility] emergency department earlier today after a reported fall at a local worksite. Rotary Screen Printing Machine Operator was consulted by nursing staff to assist [...] not completed with the patient today. INTERVENTIONS Rotary Screen Printing Machine Operator provided a cab voucher to the patient as requested and instructed him to call [employer] this service. Patient reported that his truck remains at [facility] in [place] and once he can get there he plans to return home. PLAN Patient discharged from the emergency department at this time with no further identified needs. Alexandre ValeraC.S.W. 06/21/22 documented in this encounter ED Notes Billy Camacho P.A.-C. - 06/21/2022 10:14 AM CDT SUBJECTIVE CHIEF COMPLAINT / REASON FOR VISIT: Fall (Pt arrived via [facility] following a fall at a farm [...] Procedure: ESOPHAGOGASTRODUODENOSCOPY; Surgeon: Rene Carlson M.D.; Location: [facility] GI [facility] ??? LAPAROSCOPIC ASSISTED - GASTRIC BYPASS N/A 11/21/2014 Laparoscopic assisted - Gastric bypass ??? OPEN REDUCTION INTERNAL FIXATION FEMUR Left 08/13/2019 Procedure: OPEN REDUCTION INTERNAL FIXATION LEFT FEMUR; Surgeon: John Norman M.D.; Location:[facility] OR ??? OTHER CONVERTED SHX (SEE [...] documented as of this encounter Care Teams Publishing Specialist Relationship Specialty Start Date End Date Elsewhere, Pcp PCP - General Internal Medicine 06/21/22 documented as of this encounter
--- OUTSIDE RECORDS SUMMARY | 2022-08-12 09:14 | XMS_ITS | Encounter Summary ---
:1960 Author Organization [facility] Address [address] [place] [address] Care Team Providers Name Role Phone Cintia Cobb M.D. Primary Care Provider [phone] Reason for Visit Physical Therapy (Routine) - Canceled Specialty Diagnoses / Procedures Referred By Contact Refer red To Contact Diagnoses Fracture Femur Lower Multiple Closed Initial Left (HCC) Nathen Burger M.D. [facility] Procedures PT Ongoing treatment [facility] [address] [address] Referral ID Status Reason Start Date Expiration Date Visits V isits Requested Authorized [id number] Canceled 10/22/2021 10/22/2022 40 40 Encounter Details Date Type Department Care Team Description 12/10/2021 Clinical Support Department of Gustavo Burger M.D. [address] [address] Fracture Femur Rehabilitation Lesli Dias, P.T. [address] [place] [phone] Lower Multiple Services in [place] Closed In itial [place], [place] ([facility]) [address] [place] [phone] Social History Tobacco Use Types Packs/Day [...] Lower Multiple Closed Initial Left (HCC) Payor: [employer] [facility] CARE / Plan: BC BLUE PLUS [...] pain TREATMENT Treatment today consisted of: Performed??the Happy Cloud-Fit Total body ergometer times 15??minutes at a [...] documented as of this encounter Care Teams Band Saw Runner Relationship Specialty Start Date End Date Cintia Cobb M.D. PCP - General 02/19/17 02/20/[address] [address] documented as of this encounter
--- OUTSIDE RECORDS SUMMARY | 2022-08-12 09:14 | XMS_ITS | Encounter Summary ---
:[address] [facility] Address [address] [place] [address] Care Team Providers Name Role Phone Cintia Cobb M.D. Primary Care Provider [phone] Encounter Details Date Type Department Care Team Description 02/11/2022 Orders Only Department of [facility] Angélica Cobb Medicine, Jose Daniel Piper M.D. Clinic, [address] [address] [place], [place] [phone] (W ork) [phone] Social History Tobacco Use Types Packs/Day Years [...] documented as of this encounter Care Teams Bleaching Supervisor Relationship Specialty Start Date End Date Cintia Cobb M.D. PCP - General 02/19/17 02/20/[address] [place] [phone] documented as of this encounter
--- OUTSIDE RECORDS SUMMARY | 2022-08-12 09:15 | XMS_ITS | Encounter Summary ---
:1960 Author Organization [facility] Address [address] [place] [address] Care Team Providers Name Role Phone Cintia Cobb M.D. Primary Care Provider [phone] Reason for Visit Reason Comments paperwork Encounter Details Date Type Department Care Team Description 09/24/2021 Clinical Communication Department of [facility] Yady donahue, paperwork Medicine, Jose Daniel Piper M.D. [address] [address] [place], [place] [phone] (Work) [phone] Social History Tobacco Use Types Packs/Day Years [...] cancellation of that surgical procedure on 10/07/21 RY PICKER OPERATOR Telephone Encounter - Caro Harper - 09/24/2021 3:30 PM CST Patient asking to have someone call him regarding paperwork for the Pre-op Appt. Please call him at [phone]. Thanks RY PICKER OPERATOR documented in this encounter Plan of Treatment Not on filedocumented as of this encounter Visit Diagnoses Not on filedocumented in this encounter Additional Health Concerns Infection Onset Date Last Indicated Resolved Time COVID19 Pending 09/30/2021 09/30/2021 09/30/2021 11:06 AM CHERRY PICKER OPERATOR COVID19 Pending 10/03/2021 10/03/2021 10/23/2021 6:10 AM CHERRY PICKER OPERATOR Assessment Noted Time PHQ-9 Depression Total Score: 18 02/14/2013 9:53 AM CD T documented as of this encounter Care Teams Coil Builder Relationship Specialty Start Date End Date Cintia Cobb M.D. PCP - General 02/19/17 02/20/[address] [place] [phone] documented as of this encounter
--- OUTSIDE RECORDS SUMMARY | 2022-08-12 09:15 | XMS_ITS | Encounter Summary ---
:1960 Author Organization [facility] Address [address] [place] [address] Care Team Providers Name Role Phone Cintia Cobb M.D. Primary Care Provider [phone] Encounter Details Date Type Department Care Team [...] documented as of this encounter Care Teams Videogame Designer Relationship Specialty Start Date End Date Cintia Cobb M.D. PCP - General 02/19/17 02/20/[address] [address] documented as of this encounter
--- OUTSIDE RECORDS SUMMARY | 2022-08-12 09:15 | XMS_ITS | Encounter Summary ---
:1960 Author Organization [facility] Address [address] [place] [address] Care Team Providers Name Role Phone Cintia Cobb M.D. Primary Care Provider [phone] Reason for Visit Reason Comments Med Refill Encounter Details Date Type Department Care Team Description 09/19/2021 Refill Department of [facility] Angélica Cobb Med Refill Medicine, Jose Daniel Piper M.D. Clinic, in [address] [address] [place], [place] [address] [phone] Social History Tobacco Use Types Packs/Day Years [...] documented as of this encounter Care Teams Animal Shelter Manager Relationship Specialty Start Date End Date Cintia Cobb M.D. PCP - General 02/19/17 02/20/[address] [place] [phone] documented as of this encounter
--- OUTSIDE RECORDS SUMMARY | 2022-08-12 09:15 | XMS_ITS | Encounter Summary ---
:1960 Author Organization [facility] Address [address] [place] [address] Care Team Providers Name Role Phone Cintia Cobb M.D. Primary Care Provider Reason for Referral Outpatient (Routine) - Authorized Specialty Diagnoses / Procedures Referred By Contact Refer red To Contact Diagnoses Wound Lower Leg Open Initial Right Diabetes Mellitus Type 2 Peripheral Neuropathy (HCC) Cintia Cobb Referring S, M.D. Provider [address] [place] [phone] Referral ID Status Reason Start Expiration Visits Visits Date Date Requested Authorized [id number] Authorized Patient 12/05/2021 12/05/2022 1 1 Preference Reason for Visit Reason Comments Wound referral Encounter Details Date Type Department Care Team Description 12/03/2021 Clinical Communication [facility] [place] [facility], M[facility] Clinic, in [address] [address] [place], [place] [phone] (Work) [phone] Social History Tobacco Use Types Packs/Day Years [...] willing to have a referral placed to [place] but is on sure if they will [...] within their system for pt would be [facility] location: Located in: [facility] Address: [address] [place] [address] Telephone Encounter - Cintia Cobb M.D. - 12/03/2021 8:30 PM CDT Patient has a wound and we need to refer him to a vascular Medicine/certified legal secretary specialist. Can we please call the [facility] to determine the closest clinic that [...] documented as of this encounter Care Teams Assayer Helper Relationship Specialty Start Date End Date Cintia Cobb M.D. PCP - General 02/19/17 02/20/[address] [place] [phone] documented as of this encounter
--- OUTSIDE RECORDS SUMMARY | 2022-08-12 09:15 | XMS_ITS | Encounter Summary ---
:1960 Author Organization [facility] Address [address] [place] [address] Care Team Providers Name Role Phone Cintia Cobb M.D. Primary Care Provider [phone] Reason for Visit Physical Therapy (Routine) - Canceled Specialty Diagnoses / Procedures Referred By Contact Refer red To Contact Diagnoses Fracture Femur Lower Multiple Closed Initial Left (HCC) Nathen Burger M.D. [facility] Procedures PT Ongoing treatment [facility] [address] [address] Referral ID Status Reason Start Date Expiration Date Visits V isits Requested Authorized [id number] Canceled 10/22/2021 10/22/2022 40 40 Encounter Details Date Type Department Care Team Description 11/04/2021 Clinical Support Department of Gustavo Burger M.D. [address] [address] Fracture Femur Rehabilitation Lesli Dias, P.T. [address] [place] [phone] Lower Multiple Services in [place] Closed In itial [place], [place] ([facility]) [address] [place] [phone] Social History Tobacco Use Types Packs/Day [...] Lower Multiple Closed Initial Left (HCC) Payor: [employer] [facility] CARE / Plan: [facility] BLUE PLUS HMO / Product [...] min Total Treatment Time (min): 30 min COILER documented in this encounter Plan of Treatment Not on filedocumented as of this encounter Visit Diagnoses Diagnosis Fracture Femur Lower Multiple Closed Ini tial Left (HCC) documented in this encounter Additional Health Concerns Assessment Noted Time PHQ-9 Depression Total Score: 18 02/14/2013 9:53 AM CD T documented as of this encounter Care Teams Medical Services Manager Relationship Specialty Start Date End Date Cintia Cobb M.D. PCP - General 02/19/17 02/20/[address] [place] [phone] documented as of this encounter
--- OUTSIDE RECORDS SUMMARY | 2022-08-12 09:15 | XMS_ITS | Encounter Summary ---
:1960 Author Organization [facility] Address [address] [place] [address] Care Team Providers Name Role Phone Cintia Cobb M.D. Primary Care Provider [phone] Reason for Visit Physical Therapy (Routine) - Canceled Specialty Diagnoses / Procedures Referred By Contact Refer red To Contact Diagnoses Fracture Femur Lower Multiple Closed Initial Left (HCC) Nathen Burger M.D. [facility] Procedures PT Ongoing treatment [facility] [address] [address] Referral ID Status Reason Start Date Expiration Date Visits V isits Requested Authorized [id number] Canceled 10/22/2021 10/22/2022 40 40 Encounter Details Date Type Department Care Team Description 11/25/2021 Clinical Support Department of Gustavo Burger M.D. [address] [address] Fracture Femur Rehabilitation Lesli Dias, P.T. [address] [place] [phone] Lower Multiple Services in [place] Closed In itial [place], [place] ([facility]) [address] [place] [phone] Social History Tobacco Use Types Packs/Day Years Used Date Smoking Tobacco: Never Smokeless Tobacco: Never Alcohol Use Standard Drinks/Week Comments No 0 (1 standard drink = 0.6 oz pure alcoho l) Sex Assigned at Date Recorded Not on file documented as of this encounter Progress Notes Lesli Dais P.T. - 11/25/2021 12:30 PM CDT Physical Therapy Outpatient Treatment Note SUBJECTIVE Patient's Name: Laz Luna Referring Provider: Nathen Burger M.D. Visit Diagnosis: 1. Fracture Femur Lower Multiple Closed Initial Left (HCC) Payor: [employer] [place] CARE / Plan: [employer] BLUE PLUS HMO [...] TREATMENT Treatment today consisted of: Performed the [employer] Total body ergometer times 16??minutes at a [...] as of this encounter Care Teams Electronic Intelligence Officer Relationship Specialty Start Date End Date Cintia Cobb M.D. PCP - General 02/19/17 02/20/[address] [phone] documented as of this encounter
--- OUTSIDE RECORDS SUMMARY | 2022-08-12 09:15 | XMS_ITS | Encounter Summary ---
:1960 Author Organization [facility] Address [address] [place] [address] Care Team Providers Name Role Phone Cintia Cobb M.D. Primary Care Provider [phone] Reason for Visit Physical Therapy (Routine) - Canceled Specialty Diagnoses / Procedures Referred By Contact Refer red To Contact Diagnoses Fracture Femur Lower Multiple Closed Initial Left (HCC) Nathen Burger M.D. [facility] Procedures PT Ongoing treatment [facility] [address] [address] Referral ID Status Reason Start Date Expiration Date Visits V isits Requested Authorized [id number] Canceled 10/22/2021 10/22/2022 40 40 Encounter Details Date Type Department Care Team Description 11/07/2021 Clinical Support Department of Gustavo Burger M.D. [address] [address] Fracture Femur Rehabilitation Lesli Dias, P.T. [address] [place] [phone] Lower Multiple Services in [place] Closed In itial [place], [place] ([facility]) [address] [place] [phone] Social History Tobacco Use Types Packs/Day [...] Lower Multiple Closed Initial Left (HCC) Payor: [employer] [facility] CARE / Plan: [facility] BLUE PLUS HMO / Product Type: Medicaid [...] min Total Treatment Time (min): 45 min CTOR BIOLOGICS documented in this encounter Plan of Treatment Not on filedocumented as of this encounter Visit Diagnoses Diagnosis Fracture Femur Lower Multiple Closed Ini tial Left (HCC) documented in this encounter Additional Health Concerns Assessment Noted Time PHQ-9 Depression Total Score: 18 02/14/2013 9:53 AM CD T documented as of this encounter Care Teams Estimator Lumber Relationship Specialty Start Date End Date Cintia Cobb M.D. PCP - General 02/19/17 02/20/[address] [phone] documented as of this encounter
--- OUTSIDE RECORDS SUMMARY | 2022-08-12 09:15 | XMS_ITS | Encounter Summary ---
:1960 Author Organization [facility] Address [address] [place] [address] Care Team Providers Name Role Phone Cintia Cobb M.D. Primary Care Provider [phone] Reason for Visit Reason Comments Med Refill Encounter Details Date Type Department Care Team Description 11/18/2021 Refill Department of [facility] Angélica Cobb Med Refill Medicine, [facility] M[facility], in [address] [address] [place], [place] [address] [phone] Social History Tobacco Use Types Packs/Day Years [...] M.D. PCP - General 02/19/17 02/20/[address] [place] [phone] documented as of this encounter
--- OUTSIDE RECORDS SUMMARY | 2022-08-12 09:15 | XMS_ITS | Encounter Summary ---
:1960 Author Organization [facility] Address [address] [place] [address] Care Team Providers Name Role Phone Cintia Cobb M.D. Primary Care Provider [phone] Reason for Visit Outpatient (Routine) - Closed Specialty Diagnoses / Referred By Contact Referred To Contact Procedures Physical Medicine and Diagnoses Fracture Femur Lower Multiple Closed Initial Left (HCC) Nathen Burger [facility] Dalton Riggs [address] [place] [phone] Referral ID Status Reason Start Date Expiration Date Visits Requ ested Visits Authorized [id number] Closed 10/08/2021 10/08/2022 1 1 Encounter Details Date Type Department Care Team Description 10/22/2021 Comprehensive Visit Department of Ailin Burger M.D. [address] [place] [phone] Fracture Femur Rehabilitation Lesli Dias PPiliTPili [address] [phone] Lower Multiple Services in [place] Closed In [place], [place] Left (HCC) [address] [phone] Social History Tobacco Use Types [...] eval and treat Onset Date: 09/30/21 Payor: [facility] CARE / Plan: [facility] [employer] HMO / Product Type: Medicaid HMO / [employer] Visit Count: Visit count could not be [...] Surgeon: Rene Carlson M.D.; Location: [facility] ??? LAPAROSCOPIC ASSISTED - GASTRIC BYPASS N/A 11/21/2014 Laparoscopic assisted - Gastric bypass ??? OPEN REDUCTION INTERNAL FIXATION FEMUR Left 08/13/2019 Procedure: OPEN REDUCTION INTERNAL FIXATION LEFT FEMUR; Surgeon: John Norman M.D.; Location:[facility] OR ??? OTHER CONVERTED SHX (SEE COMMENT) [...] for assessment. Home Exercise Program/Education: Access Code: [email or web address] URL: [email or web address] Date: 10/22/2021 Prepared by: Lesli Dias Exercises [...] Calculation Total Treatment Time (min): 45 min STRIPPER documented in this encounter Plan of Treatment Not on filedocumented as of this encounter Visit Diagnoses Diagnosis Fracture Femur Lower Multiple Closed Ini tial Left (HCC) documented in this encounter Additional Health Concerns Infection Onset Date Last Indicated Resolved Time COVID19 Pending 10/03/2021 10/03/2021 10/23/2021 6:10 AM CAKE STRIPPER Assessment Noted Time PHQ-9 Depression Total Score: 18 02/14/2013 9:53 AM CD T documented as of this encounter Care Teams Chemical Instrumentation Officer Relationship Specialty Start Date End Date Cintia Cobb M.D. PCP - General 02/19/17 02/20/[address] [phone] documented as of this encounter
--- OUTSIDE RECORDS SUMMARY | 2022-08-12 09:15 | XMS_ITS | Encounter Summary ---
:1960 Author Organization [facility] Address [address] [place] [address] Care Team Providers Name Role Phone Cintia Cobb M.D. Primary Care Provider [phone] Reason for Visit Physical Therapy (Routine) - Canceled Specialty Diagnoses / Procedures Referred By Contact Refer red To Contact Diagnoses Fracture Femur Lower Multiple Closed Initial [facility] ([facility]) Nathen Burger M.D. [facility] Procedures PT Ongoing treatment [facility] [address] [address] Referral ID Status Reason Start Date Expiration Date Visits V isits Requested Authorized [id number] Canceled 10/22/2021 10/22/2022 40 40 Encounter Details Date Type Department Care Team Description 11/15/2021 Clinical Support Department of Gustavo Burger M.D. [address] [address] Fracture Femur Rehabilitation Emelia Acosta, P.TPili Lower Multiple Services in [facility] In [place], [place] ([facility]) [address] [place] [phone] Social History Tobacco Use Types Packs/Day Years [...] Lower Multiple Closed Initial Left (HCC) Payor: [employer] [place] CARE / Plan: [employer] BLUE PLUS [...] 13 min Therapeutic Exercise (min): 22 min PMENT SPECIALIST documented in this encounter Plan of Treatment Not on filedocumented as of this encounter Visit Diagnoses Diagnosis Fracture Femur Lower Multiple Closed Ini tial Left (HCC) documented in this encounter Additional Health Concerns Assessment Noted Time PHQ-9 Depression Total Score: 18 02/14/2013 9:53 AM CD T documented as of this encounter Care Teams Pilot Plant Supervisor Relationship Specialty Start Date End Date Cintia Cobb M.D. PCP - General 02/19/17 02/20/[address] [phone] documented as of this encounter
--- OUTSIDE RECORDS SUMMARY | 2022-08-12 09:15 | XMS_ITS | Encounter Summary ---
:1960 Author Organization [facility] Address [address] [place] [address] Care Team Providers Name Role Phone Cintia Cobb M.D. Primary Care Provider [phone] Reason for Visit Physical Therapy (Routine) - Canceled Specialty Diagnoses / Procedures Referred By Contact Refer red To Contact Diagnoses Fracture Femur Lower Multiple Closed Initial Left (HCC) Nathen Burger M.D. [facility] Procedures PT Ongoing treatment [facility]0 [address] [address] Referral ID Status Reason Start Date Expiration Date Visits V isits Requested Authorized [id number] Canceled 10/22/2021 10/22/2022 40 40 Encounter Details Date Type Department Care Team Description 11/01/2021 Clinical Support Department of Gustavo Burger M.D. [address] [address] Fracture Femur Rehabilitation Lesli Dias, P.T. [address] [place] [phone] Lower Multiple Services in [place] Closed In itial [place], [place] ([facility]) [address] [place] [phone] Social History Tobacco Use Types Packs/Day [...] Lower Multiple Closed Initial Left (HCC) Payor: [employer] [facility] CARE / Plan: [facility] BLUE [facility] HMO / Product Type: Medicaid [...] 15 min Therapeutic Exercise (min): 25 min ORNE ELECTRONICS ANALYST documented in this encounter Plan of Treatment Not on filedocumented as of this encounter Visit Diagnoses Diagnosis Fracture Femur Lower Multiple Closed Ini tial Left (HCC) documented in this encounter Additional Health Concerns Assessment Noted Time PHQ-9 Depression Total Score: 18 02/14/2013 9:53 AM CD T documented as of this encounter Care Teams Engine Generator Assembler Relationship Specialty Start Date End Date Cintia Cobb M.D. PCP - General 02/19/17 02/20/[address] [phone] documented as of this encounter
--- OUTSIDE RECORDS SUMMARY | 2022-08-12 09:15 | XMS_ITS | Encounter Summary ---
:[address] [facility] Address [address] [place] [address] Care Team Providers Name Role Phone Cintia Cobb M.D. Primary Care Provider [phone] Reason for Visit Reason Comments Fall Left knee pain from fall at home Encounter Details Date Type Department Care Team Description 09/30/2021 [place] Noe Linares, History Of Falling (Primary Dx); Emergency Department P.A.-C. Fracture Lower End Femur Supracondylar W ith Intracondylar Extension Displaced Closed Initial Left (HCC) [address] [place] [address] [address] [place] [phone] [phone] (Wo rk) Social History Tobacco Use Types Packs/Day Years Used Date Smoking Tobacco: Never Smokeless Tobacco: Never Alcohol Use Standard Drinks/Week Comments No 0 (1 standard drink = 0.6 oz pure alcoho l) Sex Assigned at Date Recorded Not on file documented as of this encounter Last Filed Vital Signs Vital Sign Reading Time Taken Comments Blood Pressure 143/88 09/30/2021 4:15 PM HOTEL ATTENDANT Pulse 79 09/30/2021 4:25 PM HOTEL ATTENDANT Temperature 36.7 ??C (98.1 ??F) 09/30/2021 8:30 AM HOTEL ATTENDANT Respiratory Rate 18 09/30/2021 8:30 AM HOTEL ATTENDANT Oxygen Saturation 98% 09/30/2021 4:25 PM HOTEL ATTENDANT Inhaled Oxygen Concentration - - Weight 81 kg (178 lb 9.2 oz) 09/30/2021 8:25 AM HOTEL ATTENDANT Height - - Body Mass Index 24.22 08/12/2019 12:43 PM HOTEL ATTENDANT documented in this encounter Medications at [...] with ATC who spoke to Dr Mccoy, partition assembler for ortho/trauma, requested we obtain surgical prescreening [...] Left (HCC) Noe Linares P.A.-C. 10/04/21 0350 L ATTENDANT documented in this encounter Plan of Treatment Not on filedocumented as of this encounter Procedures Procedure Name Priority Date/Time Associated Comments Diagnosis TESTING LOCATION STAT 09/30/2021 1:22 Results for PM HOTEL ATTENDANT this procedure are in the results section. ECG STAT 09/30/2021 10:45 Results for AM HOTEL ATTENDANT this procedure are in the results section. CBC WITH STAT 09/30/2021 10:40 Results for DIFFERENTIAL, B AM HOTEL ATTENDANT this procedu re are in the results section. COMPREHENSIVE STAT 09/30/2021 10:40 Results fo r METABOLIC PANEL, S/P AM HOTEL ATTENDANT this pr ocedure are in the results section. SARS CORONAVIRUS 2, STAT 09/30/2021 10:36 Resu lts for PCR RAPID, V AM HOTEL ATTENDANT this procedure are in the results section. DX CHEST PORTABLE 1 RAD - Semiurgent 09/30/2021 10:22 Results for VIEW (Fast; most ED AM HOTEL ATTENDANT this procedur e patients; some are in the inpatients) results section. DX KNEE LEFT 4+ RAD - Semiurgent 09/30/2021 9:12 Resul ts for VIEWS (Fast; most ED AM HOTEL ATTENDANT this procedur e patients; some are in the inpatients) results section. documented in this encounter Results Testing Location (09/30/2021 1:22 PM HOTEL ATTENDANT) P athologist Signature Testing CANCELED 09/30/2021 CNFL Location 2:56 PM HOTEL ATTENDANT Comment: REVISED RESULTS ----PREVIOUSLY REPORTED ---- [facility], Flagged as: Normal (Reported 09/30/2021 13:22) Specimen Anatomical Collection Method Collection Time Receive d Time (Source) Location / / Volume Laterality Blood 09/30/2021 1:22 PM 2 1:22 HOTEL ATTENDANT PM HOTEL ATTENDANT Narrative [facility] - 09/30/2021 2:56 PM HOTEL ATTENDANT Testing Location was cancelled on 09/30/2021 at 14:56; Per provider's request. !CNCL! Noe Linares P.A.-C. LAB BLOOD BANK TEST ORDERABL ES Performing Organization Address City/[facility] Phon e Number [place] [address] [place] [address] [place] [address] ECG 12 Lead (09/30/2021 10:45 AM HOTEL ATTENDANT) P athologist Signature Ventricular Rate 70 BPM MUSE ECG/Min CA Interval 188 ms MUSE QRSD Interval 176 ms MUSE QT Interval 462 ms MUSE QTC Interval 498 ms MUSE R [place] -83 degrees MUSE T Wave [place] 79 degrees MUSE Specimen Anatomical Collection Method Collection Time Receive d Time (Source) Location / / Volume Laterality 09/30/2021 10:45 09/30/2021 AM HOTEL ATTENDANT 10:50 AM HOTEL ATTENDANT Impressions MUSE - 09/30/2021 10:50 AM HOTEL ATTENDANT Dual chamber electronic pacemaker Sinus rhythm When [...] Linares P.A.-C. ECG ORDERABLES Performing Organization Address City/[facility]/ZIP Code Phon e Number MUSE MUSE NA (ABNORMAL) Comprehensive Metabolic Panel (09/30/2021 10:40 AM HOTEL ATTENDANT) P athologist Signature Potassium, P 4.5 3.6 - 5.2 09/30/2021 CNFL mmol/L 11:22 AM HOTEL ATTENDANT Sodium, P 136 135 - 145 09/30/2021 CNFL mmol/L 11:22 AM HOTEL ATTENDANT Chloride, P 102 98 - 107 09/30/2021 CNFL mmol/L 11:22 AM HOTEL ATTENDANT Bicarbonate, P 22 22 - 29 09/30/2021 CNFL mmol/L 11:22 AM HOTEL ATTENDANT Anion Gap, P 12 7 - 15 09/30/2021 CNFL 11:22 AM HOTEL ATTENDANT BUN (Blood Urea 29 (H) 8 - 24 09/30/2021 CNFL Nitrogen), P mg/dL 11:22 AM HOTEL ATTENDANT Creatinine 0.91 0.74 - 09/30/2021 CNFL 1.35 mg/dL 11:22 AM HOTEL ATTENDANT eGFR-Black/Afri >90 >=60 09/30/2021 CNFL can Surinamese mL/min/BSA 11:22 AM HOTEL ATTENDANT Comment: ----ADDITIONAL INFORMATION---- Estimated GFR calculated using the 2009 CKD_EPI creatinine equation. eGFR Non-Black/ 89 >=60 mL/min/BSA 09/30/2021 11:22 AM HOTEL ATTENDANT CNFL Comment: ----ADDITIONAL INFORMATION---- Estimated GFR calculated using the 2009 CKD_EPI creatinine equation. Calcium, Total, P 8.9 8.8 - 10.2 mg/dL 09/30/2021 11:2 2 AM HOTEL ATTENDANT CNFL Glucose, P 114 70 - 140 mg/dL 09/30/2021 11:22 AM HOTEL ATTENDANT CNFL Protein, Total, P 6.3 6.3 - 7.9 g/dL 09/30/2021 11:22 AM HOTEL ATTENDANT CNFL Albumin, P 4.0 3.5 - 5.0 g/dL 09/30/2021 11:22 AM HOTEL ATTENDANT CNFL Aspartate Aminotransferase 15 8 - 48 U/L 09/30/2021 1 1:22 AM HOTEL ATTENDANT CNFL (AST), P Alkaline Phosphatase, P 57 40 - 129 U/L 09/30/2021 11 :22 AM HOTEL ATTENDANT CNFL Alanine Aminotransferase (ALT), 15 7 - 55 U/L 022 11:22 AM HOTEL ATTENDANT CNFL P Bilirubin, Total, P 0.2 <=1.2 mg/dL 09/30/2021 11:22 A M HOTEL ATTENDANT CNFL Specimen Anatomical Collection Method Collection Time Receive d Time (Source) Location / / Volume Laterality Blood (Blood, 09/30/2021 10:40 09/30/2021 Venous) AM HOTEL ATTENDANT 10:40 AM HOTEL ATTENDANT Noe Linares P.A.-C. LAB BLOOD ADD-ON Performing Organization Address City/State/ZIP Code Phon e Number [facility]- [address] [place] [address] [place] [address] [address] (ABNORMAL) CBC with Differential, Blood (09/30/2021 10:40 AM HOTEL ATTENDANT) [facility] gist Method Time Signature Hemoglobin 6.5 (L) 13.2 - 09/30/2021 CNFL 16.6 g/dL 11:16 AM HOTEL ATTENDANT Hematocrit 23.0 (L) 38.3 - 09/30/2021 CNFL 48.6 % 11:16 AM HOTEL ATTENDANT Erythrocytes 2.90 (L) 4.35 - 09/30/2021 CNFL 5.65 11:16 AM HOTEL ATTENDANT x10(12)/L MCV 79.3 78.2 - 09/30/2021 CNFL 97.9 fL 11:16 AM HOTEL ATTENDANT RBC Distrib Width 16.9 (H) 11.8 - 09/30/2021 CNFL 14.5 % 11:16 AM HOTEL ATTENDANT Platelet Count 178 135 - 317 09/30/2021 CNFL x10(9)/L 11:16 AM HOTEL ATTENDANT Leukocytes 6.1 3.4 - 9.6 09/30/2021 CNFL x10(9)/L 11:16 AM HOTEL ATTENDANT Neutrophils 4.77 1.56 - 09/30/2021 CNFL 6.45 11:16 AM HOTEL ATTENDANT x10(9)/L Lymphocytes 0.79 (L) 0.95 - 09/30/2021 CNFL 3.07 11:16 AM HOTEL ATTENDANT x10(9)/L Monocytes 0.40 0.26 - 09/30/2021 CNFL 0.81 11:16 AM HOTEL ATTENDANT x10(9)/L Eosinophils 0.06 0.03 - 09/30/2021 CNFL 0.48 11:16 AM HOTEL ATTENDANT x10(9)/L Basophils 0.03 0.01 - 09/30/2021 CNFL 0.08 11:16 AM HOTEL ATTENDANT x10(9)/L Specimen Anatomical Collection Method Collection Time Receive d Time (Source) Location / / Volume Laterality Blood (Blood, 09/30/2021 10:40 09/30/2021 Venous) AM HOTEL ATTENDANT 10:40 AM HOTEL ATTENDANT Noe Linares P.A.-C. LAB BLOOD ADD-ON Performing Organization Address City/[facility] Phon e Number [address] [address] [place] [address] SARS Coronavirus 2, PCR Rapid, V Symptomatic (09/30/2021 10:36 AM HOTEL ATTENDANT) [facility] Method Time Signature SARS CoV-2, Undetected Undetected 09/30/2021 [facility] PCR, Rapid, V 11:06 AM HOTEL ATTENDANT Comment: ----ADDITIONAL INFORMATION---- This RT-PCR test was performed using the Lola SARS-CoV-2 and Influenza A/B Reagent assay from [employer], which has received Emergency Use Authori zation(EUA) by the U.S. Food and Drug Administration . Fact sheets for this Emergency Use Autho rization (EUA) assay can be found at the following link s: For Healthcare Providers: https://www.fda.gov/media/697714/downloa d For Patients: https://www.fda.gov/media/943035/downloa d SARS Coronavirus 2, Source, Swab, Nasopharynx 09/08 10:40 AM HOTEL ATTENDANT FL Rapid Specimen Anatomical Collection Method Collection Time Receive d Time (Source) Location / / Volume Laterality Varies 09/30/2021 10:36 09/30/2021 (Nasopharynx) AM HOTEL ATTENDANT 10:40 AM HOTEL ATTENDANT Noe Linares P.A.-C. LAB MICROBIOLOGY - GENERAL O RDERABLES Performing Organization Address City/[facility]/ZIP Code Phon e Number [address] [address] [place] [address] DX Chest Portable 1 View (09/30/2021 10:22 AM HOTEL ATTENDANT) Anatomical Region Laterality Modality Chest, Thoracic RST LOS, Thoracic ARZ LOS, Thoracic N/A Computed Radiography FLA LOS Specimen (Source) Anatomical Collection Method Collection Time Re ceived Time Location / / Volume Laterality 09/30/2021 10:24 AM HOTEL ATTENDANT Impressions 09/30/2021 10:25 AM HOTEL ATTENDANT Comparison 07/27/21. Pacemaker. Heart size normal. Lungs are clear. Narrative 09/30/2021 10:25 AM HOTEL ATTENDANT EXAM: DX CHEST PORTABLE 1 VIEW Procedure Note Sebas Vegas M.D. - 09/30/2021 EXAM: DX CHEST PORTABLE 1 VIEW IMPRESSION: Comparison 07/27/21. Pacemaker. Heart si ze normal. Lungs are clear. Noe Linares P.A.-C. IMG DIAGNOSTIC IMAGING PROCE DURES DX Knee Left 4+ Views (09/30/2021 9:12 AM HOTEL ATTENDANT) Anatomical Region Laterality Modality Lower Extremity, Knee, Musculoskeletal RST LOS, Left Digital Radiography Musculoskeletal ARZ LOS, Muskuloskeletal FLA LOS Specimen (Source) Anatomical Collection Method Collection Time Re ceived Time Location / / Volume Laterality 09/30/2021 9:16 AM HOTEL ATTENDANT Impressions 09/30/2021 9:17 AM HOTEL ATTENDANT Comparison 04/06/20. Osteopenia. New acute fracture of distal femur diametaphysis with marked comminution, 4 cm impaction, mild medial angulation, and moderate posterior angulation. Arter ial calcifications. Narrative 09/30/2021 9:17 AM HOTEL ATTENDANT EXAM: DX KNEE LEFT 4+ VIEWS Procedure [...] tablet 1,000 mg Given 09/30/2021 12:58 PM HOTEL ATTENDANT 1,00 0 mg (TYLENOL) 1,000 mg, oral, Once, On Thu09/30/21 at 1233, For 1 dose droperidoL injection 1.875 mg (INAPSINE) Given 09/30/2021 12:58 PM HOTEL ATTENDANT 1.875 mg 1.875 mg, intravenous, Once, On Thu09/30/21 at 1233, For 1 dose HYDROmorphone injection 1 mg (DILAUDID) Given 09/30/2021 10:58 AM HOTEL ATTENDANT 1 mg 1 mg, intravenous, Once, On Thu09/30/21 at 1051, For 1 dose HYDROmorphone injection 1 mg (DILAUDID) Given 09/30/2021 11:15 AM HOTEL ATTENDANT 1 mg 1 mg, intravenous, Once, On Thu09/30/21 at 1113, For 1 dose ketorolac injection 15 mg (TORADOL) Given 09/30/2021 3:30 PM HOTEL ATTENDANT 15 mg 15 mg, intravenous, Once, On Thu09/30/21 at 1521, For 1 dose, Adult IV push rate: Over 15 seconds. Peds IV push rate: Over 1 minute. 60 mg dose only for IM, not recommended for IV. ketorolac tablet 10 mg (TORADOL) Given 09/30/2021 9:11 AM HOTEL ATTENDANT 10 mg 10 mg, oral, Once, On Thu09/30/21 at 0841, For 1 dose NaCl 0.9 % bolus 1,000 mL New Bag 09/30/2021 2:29 PM HOTEL ATTENDANT 1,000 mL 1000 mL/hr 1,000 mL, intravenous, [...] mg per tablet Given 09/08 9:11 AM HOTEL ATTENDANT 1 tablet 1 tablet (PERCOCET) 1 tablet, oral, Once, On Thu09/30/21 at 0841, For 1 dose documented in this encounter Active and Recently Administered Medications Times are shown in HOTEL ATTENDANT. Scheduled Medication Order 09/28/2021 09/29/2021 09/30/2021 acetaminophen [...] COVID19 Pending 09/30/2021 09/30/2021 09/30/2021 11:06 AM HOTEL ATTENDANT Assessment Noted Time PHQ-9 Depression Total Score: 18 02/14/2013 9:53 AM CD T documented as of this encounter Care Teams House Supervisor Relationship Specialty Start Date End Date Cintia Cobb M.D. PCP - General 02/19/17 02/20/[address] [phone] documented as of this encounter
--- OUTSIDE RECORDS SUMMARY | 2022-08-12 09:15 | XMS_ITS | Encounter Summary ---
:1960 Author Organization [facility] Address [address] [place] [address] Care Team Providers Name Role Phone Cintia Cobb M.D. Primary Care Provider [phone] Reason for Visit Physical Therapy (Routine) - Canceled Specialty Diagnoses / Procedures Referred By Contact Refer red To Contact Diagnoses Fracture Femur Lower Multiple Closed Initial Left (HCC) Nathen Burger M.D. [facility] Procedures PT Ongoing treatment [facility] [address] [address] Referral ID Status Reason Start Date Expiration Date Visits V isits Requested Authorized [id number] Canceled 10/22/2021 10/22/2022 40 40 Encounter Details Date Type Department Care Team Description 10/30/2021 Clinical Support Department of Gustavo Burger M.D. [address] [address] Fracture Femur Rehabilitation Lesli Dias, P.T. [address] [place] [phone] Lower Multiple Services in [place] Closed In itial [place], [place] ([facility]) [address] [place] [phone] Social History Tobacco Use Types Packs/Day [...] Lower Multiple Closed Initial Left (HCC) Payor: [employer] [facility] CARE / Plan: [facility] BLUE [...] TREATMENT Treatment today consisted of: Perform the [employer]-Fit Total body ergometer times 10 minutes at [...] min Total Treatment Time (min): 35 min N MAKER HAND documented in this encounter Plan of Treatment Not on filedocumented as of this encounter Visit Diagnoses Diagnosis Fracture Femur Lower Multiple Closed Ini tial Left (HCC) documented in this encounter Additional Health Concerns Assessment Noted Time PHQ-9 Depression Total Score: 18 02/14/2013 9:53 AM CD T documented as of this encounter Care Teams Loft Worker Head Relationship Specialty Start Date End Date Cintia Cobb M.D. PCP - General 02/19/17 02/20/[address] [phone] documented as of this encounter
--- OUTSIDE RECORDS SUMMARY | 2022-08-12 09:15 | XMS_ITS | Encounter Summary ---
:1960 Author Organization [facility] Address [address] [place] [address] Care Team Providers Name Role Phone Cintia Cobb M.D. Primary Care Provider [phone] Reason for Visit Physical Therapy (Routine) - Canceled Specialty Diagnoses / Procedures Referred By Contact Refer red To Contact Diagnoses Fracture Femur Lower Multiple Closed Initial Left (HCC) Nathen Burger M.D. [facility] Procedures PT Ongoing treatment [facility] [address] [address] Referral ID Status Reason Start Date Expiration Date Visits V isits Requested Authorized [id number] Canceled 10/22/2021 10/22/2022 40 40 Encounter Details Date Type Department Care Team Description 11/21/2021 Clinical Support Department of Gustavo Burger M.D. [address] [address] Fracture Femur Rehabilitation Lesli Dias, P.T. [address] [place] [phone] Lower Multiple Services in [place] Closed In itial [place], [place] ([facility]) [address] [place] [phone] Social History Tobacco Use Types Packs/Day [...] Lower Multiple Closed Initial Left (HCC) Payor: [employer] [facility] CARE / Plan: [facility] BLUE PLUS HMO / Product Type: [...] documented as of this encounter Care Teams Physical Fitness Teacher Relationship Specialty Start Date End Date Cintia Cobb M.D. PCP - General 02/19/17 02/20/[address] [place] [phone] documented as of this encounter
--- OUTSIDE RECORDS SUMMARY | 2022-08-12 09:15 | XMS_ITS | Encounter Summary ---
:1960 Author Organization [facility] Address [address] [place] [address] Care Team Providers Name Role Phone Cintia Cobb M.D. Primary Care Provider Reason for Visit Reason Comments ankle wound Wound on right ankle will no t healing 10 days Appointment Request (Routine) - Closed Specialty Diagnoses / Procedures Referred By Contact Refer red To Contact Family Medicine Referral ID Status Reason Start Date Expiration Date Visits Requ ested Visits Authorized [id number] Closed 12/02/2021 12/02/2022 1 1 Encounter Details Date Type Department Care Team Description 12/03/2021 Office Visit Department of [facility] Reed Cobb Lower Leg Open Initial Right (Primary Dx); Medicine, Jose Daniel Piper M.D. Diabetes Mellitus Type 2 Peripheral Neur opathy (HCC) [facility], [address] [address] [place], [place] [phone] (W ork) [phone] Social History Tobacco Use Types Packs/Day Years [...] is tender to palpation. Pictures uploaded into [employer]. ASSESSMENT / PLAN #1 Wound Lower Leg [...] Recommended the patient follow-up with a vascular speech language specialist. We will likely pursue this through the [facility]. Wound care instructions were given [...] documented as of this encounter Care Teams Analytical Manager Relationship Specialty Start Date End Date Cintia Cobb M.D. PCP - General 02/19/17 02/20/[address] [place] [phone] documented as of this encounter
--- OUTSIDE RECORDS SUMMARY | 2022-08-12 09:15 | XMS_ITS | Encounter Summary ---
:1960 Author Organization [facility] Address [address] [place] [address] Care Team Providers Name Role Phone Cintia Cobb M.D. Primary Care Provider [phone] Reason for Visit Physical Therapy (Routine) - Canceled Specialty Diagnoses / Procedures Referred By Contact Refer red To Contact Diagnoses Fracture Femur Lower Multiple Closed Initial [facility] ([facility]) Nathen Burger M.D. [facility] Procedures PT Ongoing treatment [facility] [address] [address] Referral ID Status Reason Start Date Expiration Date Visits V isits Requested Authorized [id number] Canceled 10/22/2021 10/22/2022 40 40 Encounter Details Date Type Department Care Team Description 11/13/2021 Clinical Support Department of Gustavo Burger M.D. [address] [address] Fracture Femur Rehabilitation Emelia Acosta, P.TPili Lower [facility] [place], [place] ([facility]) [address] [place] [phone] Social History Tobacco Use Types Packs/Day Years [...] Lower Multiple Closed Initial Left (HCC) Payor: [employer] [place] CARE / Plan[facility] [employer] H[facility] / Product Type: Medicaid HMO / [...] min Total Treatment Time (min): 45 min TION PLANNER documented in this encounter Plan of Treatment Not on filedocumented as of this encounter Visit Diagnoses Diagnosis Fracture Femur Lower Multiple Closed Ini tial Left (HCC) documented in this encounter Additional Health Concerns Assessment Noted Time PHQ-9 Depression Total Score: 18 02/14/2013 9:53 AM CD T documented as of this encounter Care Teams Tooth Cutter Relationship Specialty Start Date End Date Cintia Cobb M.D. PCP - General 02/19/17 02/20/[address] [phone] documented as of this encounter
--- OUTSIDE RECORDS SUMMARY | 2022-08-12 09:15 | XMS_ITS | Encounter Summary ---
:1960 Author Organization [facility] Address [address] [place] [address] Care Team Providers Name Role Phone Cintia Cobb M.D. Primary Care Provider [phone] Reason for Visit Physical Therapy (Routine) - Canceled Specialty Diagnoses / Procedures Referred By Contact Refer red To Contact Diagnoses Fracture Femur Lower Multiple Closed Initial Left (HCC) Nathen Burger M.D. [facility] Procedures PT Ongoing treatment [facility] [address] [address] Referral ID Status Reason Start Date Expiration Date Visits V isits Requested Authorized [id number] Canceled 10/22/2021 10/22/2022 40 40 Encounter Details Date Type Department Care Team Description 11/19/2021 Clinical Support Department of Gustavo Burger M.D. [address] [address] Fracture Femur Rehabilitation Lesli Dias, P.T. [address] [place] [phone] Lower Multiple Services in [place] Closed In itial [place], [place] ([facility]) [address] [place] [phone] Social History Tobacco Use Types Packs/Day [...] Lower Multiple Closed Initial Left (HCC) Payor: [employer] [facility] CARE / Plan: [facility] BLUE PLUS HMO / Product Type: Medicaid [...] as of this encounter Care Teams Field Marketer Relationship Specialty Start Date End Date Cintia Cobb M.D. PCP - General 02/19/17 02/20/[address] [phone] documented as of this encounter
--- OUTSIDE RECORDS SUMMARY | 2022-08-12 09:15 | XMS_ITS | Encounter Summary ---
:1960 Author Organization [facility] Address [address] [place] [address] Care Team Providers Name Role Phone Cintia Cobb M.D. Primary Care Provider [phone] Reason for Visit Physical Therapy (Routine) - Canceled Specialty Diagnoses / Procedures Referred By Contact Refer red To Contact Diagnoses Fracture Femur Lower Multiple Closed Initial Left (HCC) Nathen Burger M.D. [facility] Procedures PT Ongoing treatment [facility] [address] [address] Referral ID Status Reason Start Date Expiration Date Visits V isits Requested Authorized [id number] Canceled 10/22/2021 10/22/2022 40 40 Encounter Details Date Type Department Care Team Description 10/25/2021 Clinical Support Department of Gustavo Burger M.D. [address] [address] Fracture Femur Rehabilitation Lesli Dias, P.T. [address] [place] [phone] Lower Multiple Services in [place] Closed In itial [place], [place] ([facility]) [address] [place] [phone] Social History Tobacco Use Types Packs/Day [...] Lower Multiple Closed Initial Left (HCC) Payor: [employer] [facility] CARE / Plan: [facility] BLUE PLUS HMO / Product Type: Medicaid [...] TREATMENT Treatment today consisted of: Perform the [employer]-Fit Total body ergometer times 10 minutes at [...] gait belt. Home Exercise Program/Education: Access Code: [email or web address] URL: [email or web address] Date: 10/22/2021 Prepared by: Lesli Dias ?? [...] min Total Treatment Time (min): 30 min PLANT OPERATOR documented in this encounter Plan of Treatment Not on filedocumented as of this encounter Visit Diagnoses Diagnosis Fracture Femur Lower Multiple Closed Ini tial Left (HCC) documented in this encounter Additional Health Concerns Assessment Noted Time PHQ-9 Depression Total Score: 18 02/14/2013 9:53 AM CD T documented as of this encounter Care Teams Puppy Walker Relationship Specialty Start Date End Date Cintia Cobb M.D. PCP - General 02/19/17 02/20/[address] [phone] documented as of this encounter
--- OUTSIDE RECORDS SUMMARY | 2022-08-12 09:15 | XMS_ITS | Encounter Summary ---
:[address] [facility] Address [address] [place] [address] Care Team Providers Name Role Phone Cintia Cobb M.D. Primary Care Provider [phone] Reason for Visit Reason Comments Supplement Question Encounter Details Date Type Department Care Team Description 11/28/2021 Clinical Department of [place] Supplement Que stion Communication Family Medicine, Cintia Copeland M.D. Clinic, in [address] [address] [place], [place] [phone] (Work) [phone] Social History Tobacco Use Types Packs/Day Years [...] I do not know anything specifically about Denver XL. You can certainly try it but if no improvement in whatever symptoms you are hoping it will help, I would stoptaking it. Cintia Song MD Telephone Encounter - Xochitl Hackett L.P.N. - 11/28/2021 1:57 PM CDT Ed was here for some PT this afternoon and wanted to ask your opinion, if you knew anything about a supplement called Denver XL. It is to be used for [...] documented as of this encounter Care Teams Blow Off Worker Relationship Specialty Start Date End Date Cintia Cobb M.D. PCP - General 02/19/17 02/20/[address] [address] documented as of this encounter
--- OUTSIDE RECORDS SUMMARY | 2022-08-12 09:15 | XMS_ITS | Encounter Summary ---
:1960 Author Organization [facility] Address [address] [place] [address] Care Team Providers Name Role Phone Cintia Cobb M.D. Primary Care Provider [phone] Reason for Visit Physical Therapy (Routine) - Canceled Specialty Diagnoses / Procedures Referred By Contact Refer red To Contact Diagnoses Fracture Femur Lower Multiple Closed Initial Left (HCC) Nathen Burger M.D. [facility] Procedures PT Ongoing treatment [facility] [address] [address] 5 Referral ID Status Reason Start Date Expiration Date Visits V isits Requested Authorized [id number] Canceled 10/22/2021 10/22/2022 40 40 Encounter Details Date Type Department Care Team Description 11/28/2021 Clinical Support Department of Gustavo Burger M.D. [address] [address] Fracture Femur Rehabilitation Lesli Dias P.T. [address] [place] [phone] Lower Multiple Services in [place] Closed In itial [place], [place] ([facility]) [address] [place] [phone] Social History Tobacco Use Types Packs/Day [...] Lower Multiple Closed Initial Left (HCC) Payor: [employer] CARE / Plan: [facility] BLUE PLUS HMO / Product Type: [...] TREATMENT Treatment today consisted of: Performed the CadenceMD Total body ergometer times 16??minutes at a [...] documented as of this encounter Care Teams Sharepoint Application Architect Relationship Specialty Start Date End Date Cintia Cobb M.D. PCP - General 02/19/17 02/20/[address] [place] [address] documented as of this encounter
--- OUTSIDE RECORDS SUMMARY | 2022-08-12 09:15 | XMS_ITS | Encounter Summary ---
:1960 Author Organization [facility] Address [address] [place] [address] Care Team Providers Name Role Phone Cintia Cobb M.D. Primary Care Provider [phone] Reason for Visit Reason Comments ED visit Encounter Details Date Type Department Care Team Description 09/30/2021 Clinical Communication Department of [facility] Duncan donahue, ED visit Medicine, Jose Daniel Piper M.D. [facility], [address] [address] [place], [place] [phone] (Work) [phone] Social History Tobacco Use Types Packs/Day Years Used Date Smoking Tobacco: Never Smokeless Tobacco: Never Alcohol Use Standard Drinks/Week Comments No 0 (1 standard drink = 0.6 oz pure alcoho l) Sex Assigned at Date Recorded Not on file documented as of this encounter Miscellaneous Notes Telephone Encounter - Yissel Bardy I - 09/30/2021 9:49 AM CST Reason for Communication: ED visit Current Can Nursing/Provider leave a detailed message?: yes Did the patient refuse triage through Nurse line? (for symptom based concerns): na Action Needed: Patient cancelled appointment with Dr Song on 10/01/21 due to currently being in the [place] ED with a broken leg. Patient wanted Dr Song to be aware. Name of Medication (if relevant): na Please send all scheduling replies to scheduling pool. PULLER documented in this encounter Plan of Treatment Not on filedocumented as of this encounter Visit Diagnoses Not on filedocumented in this encounter Additional Health Concerns Infection Onset Date Last Indicated Resolved Time COVID19 Pending 09/30/2021 09/30/2021 09/30/2021 11:06 AM WELL PULLER COVID19 Pending 10/03/2021 10/03/2021 10/23/2021 6:10 AM WELL PULLER Assessment Noted Time PHQ-9 Depression Total Score: 18 02/14/2013 9:53 AM CD T documented as of this encounter Care Teams Shipping Receiving Clerk Relationship Specialty Start Date End Date Cintia Cobb M.D. PCP - General 02/19/17 02/20/[address] [place] [phone] documented as of this encounter
--- OUTSIDE RECORDS SUMMARY | 2022-08-12 09:15 | XMS_ITS | Encounter Summary ---
:1960 Author Organization [facility] Address [address] [place] [address] Care Team Providers Name Role Phone Cintia Cobb M.D. Primary Care Provider [phone] Reason for Visit Reason Onset Date Comments Testing For Upper Respiratory Virus Symptoms 10/03/2021 Encounter Details Date Type Department Care Team Description 10/03/2021 External Outreach Department of [facility] Nicky Franco Contact With And Medicine, [place] Carmen Padilla (Suspected) Exposure Clinic, in [address] To COVID-19 (Primary [place], [place] Dx) [address] [place] [address] [place], [place] [phone] (Work) [phone] Social History Tobacco Use Types Packs/Day Years [...] Influenza, RSV, and/or Group A Strep testing. GE PLANT SUPERVISOR documented in this encounter Plan of Treatment Not on filedocumented as of this encounter Visit Diagnoses Diagnosis Contact With And (Suspected) Exposure To COVID-19 - Primary documented in this encounter Additional Health Concerns Infection Onset Date Last Indicated Resolved Time COVID19 Pending 10/03/2021 10/03/2021 10/23/2021 6:10 AM SEWAGE PLANT SUPERVISOR Assessment Noted Time PHQ-9 Depression Total Score: 18 02/14/2013 9:53 AM CD T documented as of this encounter Care Teams Director Of Sports Medicine Relationship Specialty Start Date End Date Cintia Cobb M.D. PCP - General 02/19/17 02/20/[address] [place] [phone] documented as of this encounter
--- OUTSIDE RECORDS SUMMARY | 2022-08-12 09:16 | XMS_ITS | Encounter Summary ---
:[address] [facility] Address [address] [place] [address] Care Team Providers Name Role Phone Cintia Cobb M.D. Primary Care Provider [phone] Reason for Visit Reason Comments FYI Encounter Details Date Type Department Care Team Description 04/15/2021 Clinical Communication [facility], Jose Daniel Piper M.D. [address] [address] [place], [place] [phone] (Work) [phone] Social History Tobacco Use Types Packs/Day Years [...] you. It has appeared you have blocked [place] from calling your phone number. Dr. Song [...] your personal email. Please call us at [phone] to utilize your [place] Portal or enable phone calls/ voicemails to you from [place] so we can communicate effectively with you. Thank you Telephone Encounter - Shanice Ferguson - 04/15/2021 8:40 AM CDT Reason for Communication: gabapentin Current - pt blocked the phone number for [facility] so he cannot get a call back. Pt asked that you email him at [email or web address]. Can Nursing/Provider leave a detailed message?: no [...] documented as of this encounter Care Teams Applied Behavior Science Specialist Relationship Specialty Start Date End Date Cintia Cobb M.D. PCP - General 02/19/17 02/20/[address] [place] [phone] documented as of this encounter
--- OUTSIDE RECORDS SUMMARY | 2022-08-12 09:16 | XMS_ITS | Encounter Summary ---
:1960 Author Organization [facility] Address [address] [place] [address] Care Team Providers Name Role Phone Cintia Cobb M.D. Primary Care Provider [phone] Reason for Visit Reason Comments Shortness of Breath COVID Nurse Line Encounter Details Date Type Department Care Team Description 04/05/2021 Nurse Triage Department of [facility] Joy Pineda Shor tness of Breath; Medicine, [place] [facility] COVID Nurse Line Clinic, in [place] [phone] [address] Social History Tobacco Use Types [...] [2] SAME as normal Protocols used: BREATHING [id number] Care Advice Patient/Caregiver understands and will follow [...] Screening ASSESSMENT Region Select appropriate region: : [place] Age Pathway Select approprite pathway: : Adult [...] care: Yes The following references were used: [facility] novel coronavirus (COVID- 19) resources Nursing judgement documented in this encounter Plan of Treatment Not on filedocumented as of this encounter Visit Diagnoses Not on filedocumented in this encounter Additional Health Concerns Assessment Noted Time PHQ-9 Depression Total Score: 18 02/14/2013 9:53 AM CD T documented as of this encounter Care Teams Forming Yardage Control Operator Relationship Specialty Start Date End Date Cintia Cobb M.D. PCP - General 02/19/17 02/20/[address] [address] documented as of this encounter
--- OUTSIDE RECORDS SUMMARY | 2022-08-12 09:16 | XMS_ITS | Encounter Summary ---
:1960 Author Organization [facility] Address [address] [place] [address] Care Team Providers Name Role Phone Cintia Cobb M.D. Primary Care Provider [phone] Encounter Details Date Type Department Care Team Description 07/14/2021 Clinical Communication Department of [facility] Medicine, Jose Daniel Piper M.D. [address] [address] [place], [place] [phone] (Work) [phone] Social History Tobacco Use Types Packs/Day Years Used Date Smoking Tobacco: Never Smokeless Tobacco: Never Alcohol Use Standard Drinks/Week Comments No 0 (1 standard drink = 0.6 oz pure alcoho l) Sex Assigned at Date Recorded Not on file documented as of this encounter Miscellaneous Notes Telephone Encounter - Cintia Cobb M.D. - 07/14/2021 6:04 PM AIR TUBE RELEASER Received this message from patient via email: [...] adjust the dose. Thanks, Cintia Song MD TUBE RELEASER documented in this encounter Plan of Treatment Not on filedocumented as of this encounter Visit Diagnoses Not on filedocumented in this encounter Additional Health Concerns Assessment Noted Time PHQ-9 Depression Total Score: 18 02/14/2013 9:53 AM CD T documented as of this encounter Care Teams Forge Tender Relationship Specialty Start Date End Date Cintia Cobb M.D. PCP - General 02/19/17 02/20/[address] [address] documented as of this encounter
--- OUTSIDE RECORDS SUMMARY | 2022-08-12 09:16 | XMS_ITS | Encounter Summary ---
:1960 Author Organization [facility] Address [address] [place] [address] Care Team Providers Name Role Phone Cintia Cobb M.D. Primary Care Provider [phone] Reason for Visit Reason Comments Appointment Encounter Details Date Type Department Care Team Description 04/15/2021 Clinical Communication Department of [facility], Appointment Medicine, Jose Daniel Piper M.D. [address] [address] [place], [place] [phone] (Work) [phone] Social History Tobacco Use Types Packs/Day Years [...] phone number can I reach you at? [phone] ('s number) New Symptom and duration of [...] after 6:00 PM. Routing: - transfer to payloader machine operator line if new or worsening symptoms - team automatic pilot mechanic for continued symptoms - [employer] SALES CONSULTANT pool for chronic issue or medication refill/question documented in this encounter Plan of Treatment Not on filedocumented as of this encounter Visit Diagnoses Not on filedocumented in this encounter Additional Health Concerns Assessment Noted Time PHQ-9 Depression Total Score: 18 02/14/2013 9:53 AM CD T documented as of this encounter Care Teams Yoga Coordinator Relationship Specialty Start Date End Date Cintia Cobb M.D. PCP - General 02/19/17 02/20/[address] [phone] documented as of this encounter
--- OUTSIDE RECORDS SUMMARY | 2022-08-12 09:16 | XMS_ITS | Encounter Summary ---
:1960 Author Organization [facility] Address [address] [place] [address] Care Team Providers Name Role Phone Cintia Cobb M.D. Primary Care Provider [phone] Reason for Visit Reason Comments Gabapentin question Encounter Details Date Type Department Care Team Description 03/18/2021 Clinical Department of [facility] [place] S, M.D. Clinic, in [address] [address] [place], [place] [phone] (Work) [phone] Social History Tobacco Use Types Packs/Day Years [...] documented as of this encounter Care Teams Mortgage Operations Manager Relationship Specialty Start Date End Date Cintia Cobb M.D. PCP - General 02/19/17 02/20/[address] [place] [address] documented as of this encounter
--- OUTSIDE RECORDS SUMMARY | 2022-08-12 09:16 | XMS_ITS | Encounter Summary ---
:1960 Author Organization [facility] Address [address] [place] [address] Care Team Providers Name Role Phone Cintia Cobb M.D. Primary Care Provider [phone] Reason for Visit Reason Comments Medical Information Encounter Details Date Type Department Care Team Description 04/15/2021 Nurse Triage Department of [facility] Ashley Cole Medic al Information Medicine, [facility], in [address] [address] [place], [place] [phone] (Work) [phone] Social History Tobacco Use Types Packs/Day Years [...] documented as of this encounter Care Teams Undercollar Maker Relationship Specialty Start Date End Date Cintia Cobb M.D. PCP - General 02/19/17 02/20/[address] [place] [phone] documented as of this encounter
--- OUTSIDE RECORDS SUMMARY | 2022-08-12 09:16 | XMS_ITS | Encounter Summary ---
:[address] [facility] Address [address] [place] [address] Care Team Providers Name Role Phone Cintia Cobb M.D. Primary Care Provider [phone] Reason for Visit Reason Comments Gabapentin/ SE Encounter Details Date Type Department Care Team Description 03/04/2021 Clinical Communication Department of [facility] millie/ Family MedicineMin Megan [place] S, M.D. Clinic, in [address] [address] [place], [place] [phone] (Work) [phone] Social History Tobacco Use Types Packs/Day Years [...] documented as of this encounter Care Teams Design Engineer Marine Equipment Relationship Specialty Start Date End Date Cintia Cobb M.D. PCP - General 02/19/17 02/20/[address] [place] [phone] documented as of this encounter
--- OUTSIDE RECORDS SUMMARY | 2022-08-12 09:16 | XMS_ITS | Encounter Summary ---
:1960 Author Organization [facility] Address [address] [place] [address] Care Team Providers Name Role Phone Cintia Cobb M.D. Primary Care Provider [phone] Reason for Visit Reason Comments Referral Pain Med Referral Encounter Details Date Type Department Care Team Description 02/18/2021 Clinical Communication Department of [facility] Referral (Pain Med Medicine in [place], R.N. Referral) [place], [place] [phone] [address] [facility] (Work) [place] [address] Social History Tobacco Use Types [...] to contact the clinic. Telephone Encounter - Cintai Cobb M.D. - 02/19/2021 4:02 PM CDT [...] patient decided to seek care in the [facility]. Please review triage note from 02/05/21 and advise, thank you! documented in this encounter Plan of Treatment Not on filedocumented as of this encounter Visit Diagnoses Not on filedocumented in this encounter Additional Health Concerns Assessment Noted Time PHQ-9 Depression Total Score: 18 02/14/2013 9:53 AM CD T documented as of this encounter Care Teams Senior Director Relationship Specialty Start Date End Date Cintia Cobb M.D. PCP - General 02/19/17 02/20/[address] [address] documented as of this encounter
--- OUTSIDE RECORDS SUMMARY | 2022-08-12 09:16 | XMS_ITS | Encounter Summary ---
:1960 Author Organization [facility] Address [address] [place] [address] Care Team Providers Name Role Phone Cintia Cobb M.D. Primary Care Provider [phone] Reason for Visit Reason Comments Chest Wall Pain 61 year old male admits with concerns of right rib pain. Pt states he was working on his truck and was leaning on a piece of the truck and it has hurt ever since Encounter Details Date Type Department Care Team Description 07/27/2021 [facility] Joaquín Grayson, Elvi Chest Wall Department P.A.-C. (Primary Dx) [phone] [place] [address] [place] [address] [phone] Social History Tobacco Use Types Packs/Day Years [...] (176 lb 5.9 oz) 07/27/2021 11:56 AM AUTOMOBILE CLUB MEMBERSHIP SALES AGENT Height - - Body Mass Index 23.92 08/12/2019 12:43 PM AUTOMOBILE CL[employer] MEMBERSHIP SALES AGENT documented in this encounter Discharge Instructions Discharge InstructionsCrJoaquín burris P.A.-C. - 07/27/2021 1:10 PM AUTOMOBILE [employer] MEMBERSHIP SALES AGENT Come back if needed MOBILE [employer] MEMBERSHIP SALES AGENT AttachmentsThe following attachments cannot be sent through Care Everywhere. Chest Wall Pain (Arabic)documented in this encounter Medications at Time of [...] daily. 1 each 1 each 0 [facility]. Dx: E11.9. Brand per insurance coverage. [...] pneumothorax. I gave him a prescription for [place] to use for more severe pain. He will follow-up in clinic as needed. DIFFERENTIAL DIAGNOSIS Rib fracture, muscle strain, pneumothorax, costochondritis I personally reviewed the radiology image(s). The Radiology exam interpretation(s) is/are normal. Final Diagnoses: as of 07/27/21 1316 Pain Chest Wall Joaquín Grayson P.A.-C. 07/27/21 1316 [employer] MEMBERSHIP SALES AGENT documented in this encounter Plan of Treatment Not on filedocumented as of this encounter Procedures Procedure Name Priority Date/Time Associated Comments Diagnosis DX RIBS RIGHT 2 VIEWS RAD - Routine 07/27/2021 Resul ts for WITH CHEST (most inpatients 12:42 PM [employer] MEMBERSHIP SALES AGENT this proced ure POSTEROANTERIOR 1 VIEW and all are i n the outpatients) results section. documented in this encounter Results DX Ribs Right 2 Views with Chest Posteroanterior 1 View (07/27/2021 12:42 PM [employer] MEMBERSHIP SALES AGENT) Anatomical Region Laterality Modality Ribs, Chest, Musculoskeletal RST LOS, Musculoskeletal Right Digital Radiography ARZ LOS, Muskuloskeletal FLA LOS Specimen (Source) Anatomical Collection Method Collection Time Re ceived Time Location / / Volume Laterality 07/27/2021 1:25 PM [employer] MEMBERSHIP SALES AGENT Impressions 07/27/2021 1:26 PM AUTOM[employer] MEMBERSHIP SALES AGENT No acute appreciable rib fracture. No acute radiographic abnormality. Narrative 07/27/2021 1:26 PM AUTOMOBI[employer] MEMBERSHIP SALES AGENT EXAM: DX RIBS RIGHT 2 VIEWS WITH CHEST POSTEROANTERIOR 1 VIEW COMPARISON: 01/20/2017 FINDINGS: Patient's jewelry projects ove r the upper lungs, limiting evaluation. Dual lead left chest cardiac device. Car diac silhouette is within normal limits. Pulmonary vasculature is distinct. No ac cachil dehe consolidation, pleural effusion, or pneumothorax. No acute [...] limits. Pulmonary vasculature is distinct. No ac cachil dehe consolidation, pleural effusion, or pneumothorax. No acute appreciable rib f racture. IMPRESSION: No acute appreciable rib fracture. No ac cachil dehe radiographic abnormality. Joaquín Grayson P.A.-C. [facility] DIAGNOSTIC IMAGING PROCE DURES documented in this encounter Visit Diagnoses Diagnosis Pain Chest Wall - Primary documented in this encounter Additional Health Concerns Assessment Noted Time PHQ-9 Depression Total Score: 18 02/14/2013 9:53 AM CD T documented as of this encounter Care Teams Covered Buckle Assembler Relationship Specialty Start Date End Date Cintia Cobb M.D. PCP - General 02/19/17 02/20/[address] [place] [address] documented as of this encounter
--- OUTSIDE RECORDS SUMMARY | 2022-08-12 09:16 | XMS_ITS | Encounter Summary ---
:1960 Author Organization [facility] Address [address] [place] [address] Care Team Providers Name Role Phone Cintia Cobb M.D. Primary Care Provider [phone] Reason for Visit Reason Comments SOB/ weight gain Encounter Details Date Type Department Care Team Description 04/05/2021 Clinical Communication Department of Song SOB/ weight gain Family MedicineMin Megan [place] S, M.D. Clinic, in [address] [address] [place], [place] [phone] (Work) [phone] Social History Tobacco Use Types Packs/Day Years [...] will keep calling in. Telephone Encounter - Courtnye Calixto - 04/05/2021 8:38 AM CDT Reason [...] documented as of this encounter Care Teams Lithographic Proofer Relationship Specialty Start Date End Date Cintia Cobb M.D. PCP - General 02/19/17 02/20/[address] [place] [phone] documented as of this encounter
--- OUTSIDE RECORDS SUMMARY | 2022-08-12 09:16 | XMS_ITS | Encounter Summary ---
:[address] [facility] Address [address] [place] [address] Care Team Providers Name Role Phone Cintia Cobb M.D. Primary Care Provider [phone] Reason for Visit Reason Comments Medical Information Encounter Details Date Type Department Care Team Description 07/28/2021 Nurse Triage Department of Family Hanny Cosme, Medical Information Medicine, [facility], in [place] [phone] ([address] [address] Social History Tobacco Use Types Packs/Day Years Used Date Smoking Tobacco: Never Smokeless Tobacco: Never Alcohol Use Standard Drinks/Week Comments No 0 (1 standard drink = 0.6 oz pure alcoho l) Sex Assigned at Date Recorded Not on file documented as of this encounter Miscellaneous Notes Telephone Encounter - Hanny Cosme RKevin. - 07/28/2021 10:57 AM MANAGER PROPOSAL Patient calling to see why he shouldn't mix [place] with Tylenol and alcohol. Nurse continued to explain but patient refused recommendations. Stated he's going to continue to do what he's been doing andtake all 6 pain pills with half a bottle of Tylenol and wash it down with [place], all at the same time. This could be life threatening and result in an overdose. Patient refused vortex operator recommendation. Note sent to PCP team. Unable to contact patient due to him blocking [facility]. GER PROPOSAL documented in this encounter Plan of Treatment Not on filedocumented as of this encounter Visit Diagnoses Not on filedocumented in this encounter Additional Health Concerns Assessment Noted Time PHQ-9 Depression Total Score: 18 02/14/2013 9:53 AM CD T documented as of this encounter Care Teams Gauge Controller Relationship Specialty Start Date End Date Cintia Cobb M.D. PCP - General 02/19/17 02/20/[address] [place] [phone] documented as of this encounter
--- OUTSIDE RECORDS SUMMARY | 2022-08-12 09:16 | XMS_ITS | Encounter Summary ---
:1960 Author Organization [facility] Address [address] [place] [address] Care Team Providers Name Role Phone Cintia Cobb M.D. Primary Care Provider [phone] Encounter Details Date Type Department Care Team Description 05/14/2021 Orders Only [facility] SEMN PCP [facility] Priyanka Cobb Mellitus Type OLEG Piper M.D. 2 With Diabetic [address] [address] Neuropathy ( HCC) [place] [address] (Wo rk) Social History Tobacco [...] documented as of this encounter Care Teams Adzing And Boring Machine Helper Relationship Specialty Start Date End Date Cintia Cobb M.D. PCP - General 02/19/17 02/20/22 [address] [facility] [address] [place] [phone] documented as of this encounter
--- OUTSIDE RECORDS SUMMARY | 2022-08-12 09:16 | XMS_ITS | Encounter Summary ---
:1960 Author Organization [facility] Address [address] [place] [address] Care Team Providers Name Role Phone Cintia Cobb M.D. Primary Care Provider Encounter Details Date Type Department Care Team Description 08/13/2021 Orders Only [facility] SEMN PCP [facility] Priyanka Cobb Mellitus Type OLEG Piper M.D. 2 With Diabetic [address] [address] Neuropathy ( HCC) [place] [address] (Wo rk) Social History Tobacco [...] documented as of this encounter Care Teams Graduate Fellow Relationship Specialty Start Date End Date Cintia Cobb M.D. PCP - General 02/19/17 02/20/22 [address] [facility] [address] [place] [phone] documented as of this encounter
--- OUTSIDE RECORDS SUMMARY | 2022-08-12 09:16 | XMS_ITS | Encounter Summary ---
:1960 Author Organization [facility] Address [address] [place] [address] Care Team Providers Name Role Phone Cintia Cobb M.D. Primary Care Provider [phone] Encounter Details Date Type Department Care Team Description 07/30/2021 Clinical Communication Department of [facility] Medicine, Jose Daniel Piper M.D. [address] [address] [place], [place] [phone] (Work) [phone] Social History Tobacco Use Types Packs/Day Years Used Date Smoking Tobacco: Never Smokeless Tobacco: Never Alcohol Use Standard Drinks/Week Comments No 0 (1 standard drink = 0.6 oz pure alcoho l) Sex Assigned at Date Recorded Not on file documented as of this encounter Miscellaneous Notes Telephone Encounter - Cintia Cobb M.D. - 08/05/2021 11:38 AM DISTRICT SALES MANAGER Noted. Will discuss at upcoming appointment. RICT SALES MANAGER Telephone Encounter - Iliana Campos L.P.N. - 07/30/2021 10:21 AM CST Notes below from indian blanket weaver as an FY from 07/28/21I: FYI I wanted PCP and Nurse Team to know. Patient is taking prescriptions inappropriately and could result in terrible side effects. All follow up related to this message will need to be done by the primary provider's nursing team. ??Please have your local nursing staff follow up with patient directly. ??Patient blocked [facility] from calling so unable to reach patient. Routing comment Patient calling to see why he shouldn't mix [place] with Tylenol and alcohol. Nurse continued to explain but patient refused recommendations. Stated he's going to continue to do what he's been doing andtake all 6 pain pills with half a bottle of Tylenol and wash it down with [place], all at the same time. ?? This could be life threatening and result in an overdose. Patient refused indian blanket weaver recommendation. Note sent to PCP team. Unable to contact patient due to him blocking [facility]. RICT SALES MANAGER documented in this encounter Plan of Treatment Not on filedocumented as of this encounter Visit Diagnoses Not on filedocumented in this encounter Additional Health Concerns Assessment Noted Time PHQ-9 Depression Total Score: 18 02/14/2013 9:53 AM CD T documented as of this encounter Care Teams Hand Sample Maker Relationship Specialty Start Date End Date Cintia Cobb M.D. PCP - General 02/19/17 02/20/[address] [address] documented as of this encounter
--- OUTSIDE RECORDS SUMMARY | 2022-08-12 09:16 | XMS_ITS | Encounter Summary ---
:1960 Author Organization [facility] Address [address] [place] [address] Care Team Providers Name Role Phone Cintia Cobb M.D. Primary Care Provider [phone] Reason for Referral Outpatient (Routine) - Closed Specialty Diagnoses / Procedures Referred By Contact Refer red To Contact Diagnoses Pain Knee Left Kacie Huerta APRN, [facility] [place] [facility] Procedures vih-ramx-dgtaqgwy-elbow arthrocentesis: L knee joint C.N.P., D.N.P. [address] [place] [address] Referral ID Status Reason Start Date Expiration Date Visits Requ ested Visits Authorized [id number] Closed 07/12/2021 07/12/2022 1 1 utpatient (Routine) - Closed Specialty Diagnoses / Procedures Referred By Contact Refer red To Contact Diagnoses Pain Hip Left Kacie Huerta APRN, [facility] [place] [facility] Procedures lpv-qtwy-ylhhzpgz-elbow arthrocentesis: L greater troch bursa C.N.P., D.N.P. [address] [place] [address] Referral ID Status Reason Start Date Expiration Date Visits Requ ested Visits Authorized [id number] Closed 07/12/2021 07/12/2022 1 1 Reason for Visit Reason Comments Follow-up Encounter Details Date Type Department Care Team Description 07/12/2021 Office Visit Department of Kacie Huerta, Pain Knee L eft (Primary Dx); Orthopedic Surgery in [place], Pain Hip Left Merlyn Dean D.N.P. [address] [place] [phone] Social History Tobacco Use Types [...] in his symptoms. His questions were answered RONMENTAL LABORATORY TECHNICIAN documented in this encounter Procedure Notes Theresa Santiago RAugustine - 07/12/2021 8:00 AM CDTAssociated Order(s): mwx-gyot-gighucei-elbow arthrocentesis: L greater troch bursa; ffm-lhjp-qztkmfnb -elbow arthrocentesis: L knee joint Post-Procedure Diagnose(s): [...] dressing care and follow-up with ordering provider RONMENTAL LABORATORY TECHNICIAN documented in this encounter Plan of Treatment Not on filedocumented as of this encounter Procedures Procedure Name Priority Date/Time Associated Diagnosis Comme nts [place] ARTHCS ASP/INJ Routine 07/12/2021 8:50 AM Pain Knee Left Re sults for this MJR JT WO US CDT procedure are i n the results section. [place] ARTHCS ASP/INJ Routine 07/12/2021 8:48 AM Pain Hip Left Res ults for this MJR JT WO US CDT procedure are i n the results section. documented in this encounter Results [place] ARTHCS ASP/INJ MJR JT WO US (07/12/2021 [...] Code Phon e Number MMODAL MMODAL NA [place] ARTHCS ASP/INJ MJR JT WO US (07/12/2021 [...] documented as of this encounter Care Teams Billposting Supervisor Relationship Specialty Start Date End Date Cintia Cobb M.D. PCP - General 02/19/17 02/20/[address] [phone] documented as of this encounter
--- OUTSIDE RECORDS SUMMARY | 2022-08-12 09:16 | XMS_ITS | Encounter Summary ---
:1960 Author Organization [facility] Address [address] [place] [address] Care Team Providers Name Role Phone Cintia Cobb M.D. Primary Care Provider [phone] Reason for Visit Reason Comments Shoulder Pain Pt presents to ED with left shoulder pain. Pt reports a branch hit his shoulder when mowing lawn 08/27. Encounter Details Date Type Department Care Team Description 02/18/2021 Emergency [place] [facility] Alexey Patel, Pain Shoulder Left Department P.A.-C. (Primary Dx) [address] [address] [place], [place] [phone] Social History Tobacco Use Types Packs/Day [...] be sent through Care Everywhere. Shoulder Pain (Niuean)documented in this encounter Medications at Time [...] documented as of this encounter Care Teams Team Foreman Relationship Specialty Start Date End Date Cintia Cobb M.D. PCP - General 02/19/17 02/20/[address] [place] [phone] documented as of this encounter
--- OUTSIDE RECORDS SUMMARY | 2022-08-12 09:16 | XMS_ITS | Encounter Summary ---
:1960 Author Organization [facility] Address [address] [place] [address] Care Team Providers Name Role Phone Cintia Cobb M.D. Primary Care Provider [phone] Reason for Visit Reason Comments Triage Encounter Details Date Type Department Care Team Description 07/25/2021 Nurse Triage Department of [facility] Drake Gilbert RAugustine Triage Medicine, [place] [address] [facility], in [facility] [address] [place] [address] [address] [phone] Social History Tobacco Use Types Packs/Day [...] next 24 hours. Call your doctor (or DISASTER DIRECTOR/PA) when the office opens and make an [...] acetaminophen, ibuprofen, or naproxen. * They are obaq-mdt-rqvhihr (OTC) pain drugs. You can buy them [...] AND [2] still hurts Protocols used: CHEST KJGIIT-VVJWV-HH OMER SOLUTIONS ARCHITECT documented in this encounter Plan of Treatment Not on filedocumented as of this encounter Visit Diagnoses Not on filedocumented in this encounter Additional Health Concerns Assessment Noted Time PHQ-9 Depression Total Score: 18 02/14/2013 9:53 AM CD T documented as of this encounter Care Teams Shirt Finisher Relationship Specialty Start Date End Date Cintia Cobb M.D. PCP - General 02/19/17 02/20/[address] [address] documented as of this encounter
--- OUTSIDE RECORDS SUMMARY | 2022-08-12 09:16 | XMS_ITS | Encounter Summary ---
:1960 Author Organization [facility] Address [address] [place] [address] Care Team Providers Name Role Phone Cintia Cobb M.D. Primary Care Provider [phone] Encounter Details Date Type Department Care Team Description 09/09/2021 Orders Only Department of [facility] Angélica Cobb Medicine, Jose Daniel Piper M.D. Clinic, [address] [address] [place], [place] [phone] (W ork) [address] [phone] Social History Tobacco Use Types Packs/Day Years [...] documented as of this encounter Care Teams Primary Care Provider Relationship Specialty Start Date End Date Cintia Cobb M.D. PCP - General 02/19/17 02/20/[address] [place] [phone] documented as of this encounter
--- OUTSIDE RECORDS SUMMARY | 2022-08-12 09:16 | XMS_ITS | Encounter Summary ---
:1960 Author Organization [facility] Address [address] [place] [address] Care Team Providers Name Role Phone Cintia Cobb M.D. Primary Care Provider [phone] Reason for Referral Outpatient (Routine) - Closed Specialty Diagnoses / Procedures Referred By Contact Refer red To Contact Family Medicine Cintia Cobb DREW Piper M.D. [address] [place] [address] Referral ID Status Reason Start Date Expiration Date Visits Requ ested Visits Authorized [id number] Closed 08/13/2021 08/13/2022 1 1 R TESTER POLYPHASE Reason for Visit Reason Comments Weight Gain due to gabapentin. 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 Diabetes Mellitus Type 2 Peripheral Neur opathy (HCC); [facility], in [address] [place] [address] Hyperten mikey Essential Primary; [facility] Flutter Atrial (HCC); [place] DREW Condon Anemia Microcytic; [address] [address] Gastric Bypass Status Post; DREW CONDON [phone] Benign Pros tatic Hyperplasia Without Obstruction; [phone] (Work) Screening Examination Prostate Cancer; [phone] Pain Low Back Unspecified Social History Tobacco [...] Comments Blood Pressure 127/82 08/13/2021 7:21 PM METER TESTER POLYPHASE Pulse 78 08/13/2021 7:21 PM METER TESTER POLYPHASE Temperature - - Respiratory Rate 20 08/13/2021 6:30 PM METER TESTER POLYPHASE Oxygen Saturation 98% 08/13/2021 6:30 PM METER TESTER POLYPHASE Inhaled Oxygen Concentration - - Weight - [...] in no acute distress. Cintia Copeland MD R TESTER POLYPHASE documented in this encounter Plan of Treatment Scheduled Orders Name Type Priority Associated Diagnoses Order [facility] Creatinine with Lab Routine Hypertension Essential Ex [...] is an electrochemilum inescence assay manufactured by [employer] and performed on the Modular [...] Organization Address City/State/ZIP Code Phon e Number [facility]- [address] [place] [address] [address] [place] [address] System in [address] Lipid Panel (12/31/2021 7:28 PM [...] M.D. LAB BLOOD ADD-ON Performing Organization Address [facility] Phon e Number [address] [address] [place] [address] System in [address] [address] [address] Hemoglobin A1c (12/31/2021 7:28 PM CDT) P athologist Signature Hemoglobin A1c, 5.4 4.2 - 5.6 12/31/2021 CNFL B % 7:48 PM CDT Specimen Anatomical Collection Method Collection Time Receive d Time (Source) Location / / Volume Laterality Blood (Blood, 12/31/2021 7:28 PM 01/01/20 22 7:32 Venous) CDT PM CDT Cintia Copeland M.D. LAB BLOOD ADD-ON Performing Organization Address [facility] Phon e Number [address] [address] [place] [address] System [address] (ABNORMAL) CBC without Differential (12/31/2021 7:22 [...] Organization Address City/State/ZIP Code Phon e Number [facility]- [address] [place] [address] [place] [address] System in [address] documented in this encounter Visit Diagnoses [...] as of this encounter Care Teams Engineer Second Assistant Relationship Specialty Start Date End Date Cintia Cobb M.D. PCP - General 02/19/17 02/20/[address] [place] [address] documented as of this encounter
--- OUTSIDE RECORDS SUMMARY | 2022-08-12 09:16 | XMS_ITS | Encounter Summary ---
:1960 Author Organization [facility] Address [address] [place] [address] Care Team Providers Name Role Phone Cintia Cobb M.D. Primary Care Provider [phone] Reason for Visit Reason Comments Medication Question Encounter Details Date Type Department Care Team Description 03/01/2021 [facility], Cintia Copeland M.D. Clinic, in [address] [address] [place], [place] [phone] [address] (Work) [phone] Social History Tobacco Use Types Packs/Day Years [...] What number can I reach you at? [phone] Magali What is the patient's request? Ed [...] symptoms or side effects, please route to [facility] pool of prescribing provider - if new symptoms have having side effects, please transfer to off-site triage ([phone]) documented in this encounter Plan of Treatment Not on filedocumented as of this encounter Visit Diagnoses Not on filedocumented in this encounter Additional Health Concerns Assessment Noted Time PHQ-9 Depression Total Score: 18 02/14/2013 9:53 AM CD T documented as of this encounter Care Teams Piano Stringer Relationship Specialty Start Date End Date Cintia Cobb M.D. PCP - General 02/19/17 02/20/[address] [address] documented as of this encounter
--- OUTSIDE RECORDS SUMMARY | 2022-08-12 09:16 | XMS_ITS | Encounter Summary ---
:1960 Author Organization [facility] Address [address] [place] [address] Care Team Providers Name Role Phone Cintia Cobb M.D. Primary Care Provider [phone] Reason for Visit Reason Comments Follow-up Encounter Details Date Type Department Care Team Description 03/12/2021 Clinical Communication Department [facility], Follow-up Medicine, Jose Daniel Piper M.D. [facility], [address] [address] [place], [place] [phone] (Work) [phone] Social History Tobacco Use Types Packs/Day Years [...] documented as of this encounter Care Teams Consultant Dietitian Relationship Specialty Start Date End Date Cintia Cobb M.D. PCP - General 02/19/17 02/20/[address] [place] [address] documented as of this encounter
--- OUTSIDE RECORDS SUMMARY | 2022-08-12 09:16 | XMS_ITS | Encounter Summary ---
:1960 Author Organization [facility] Address [address] [place] [address] Care Team Providers Name Role Phone Cintia Cobb M.D. Primary Care Provider [phone] Reason for Visit Reason Comments Post Surgery Question Encounter Details Date Type Department Care Team Description 04/10/2021 Clinical Department of [place] Post Surgery Communication Family MedicineMin Megan Questio n [place] S, M.D. Clinic, in [address] [address] [place], [place] [phone] [phone] (Work) [phone] Social History Tobacco Use Types Packs/Day Years [...] many times and nothing has happened. This music writer informed patient that this is highly not recommended by his surgeon, as it can lead to dislocation. Patient then began carrying on and making negative slurs about the surgeon and wanted this music writer to tell that to his surgeon. This music writer attempted to deescalate and change the conversation to see if there is any other other questions to address. Patient continued to say rude comments about the surgeon. Patient continued to complain, so music writer ended the call. Telephone Encounter - [...] us to call his wifes phone at [phone]. A detailed message can be left on this line if she doesn't answer. His main number has [employer] line blocked and no voicemail Name of [...] documented as of this encounter Care Teams Plug Machine Operator Relationship Specialty Start Date End Date Cintia Cobb M.D. PCP - General 02/19/17 02/20/[address] [address] documented as of this encounter
--- OUTSIDE RECORDS SUMMARY | 2022-08-12 09:17 | XMS_ITS | Encounter Summary ---
:1960 Author Organization [facility] Address [address] [place] [address] Care Team Providers Name Role Phone Cintia Cobb M.D. Primary Care Provider [phone] Reason for Referral Outpatient (Routine) - Closed Specialty Diagnoses / Procedures Referred By Contact Refer red To Contact Pain Medicine Diagnoses Spondylitis (HCC) Kacie Huerta APRN, [facility] [place] [facility] C.N.P., D.N.P. [address] [place] [address] Referral ID Status Reason Start Date Expiration Date Visits V isits Requested Authorized [id number] Closed Specialty 10/30/2020 10/30/2021 1 1 Services Required utpatient (Routine) - Closed Specialty Diagnoses / Procedures Referred By Contact Refer red To Contact Diagnoses Primary Osteoarthritis Knee Left Kacie Huerta APRN, [facility] Procedures idh-oacb-cgrkjgco-elbow arthrocentesis: L knee joint C.N.P., D.N.P. [address] [place] [address] Referral ID Status Reason Start Date Expiration Date Visits Requ ested Visits Authorized [id number] Closed 10/30/2020 10/30/2021 1 1 LITE MOLDER Reason for Visit Reason Comments Follow-up CT Results Pain Outpatient (Routine) - Closed Specialty Diagnoses / Procedures Referred By Contact Refer red To Contact Orthopedic Surgery Kacie Huerta, [place], [facility] [place], FidelN.PPili [address] [place] [phone] Referral ID Status Reason Start Date Expiration Date Visits Requ ested Visits Authorized [id number] Closed 08/22/2020 08/22/2021 1 1 Encounter Details Date Type Department Care Team Description 10/30/2020 Office Visit Department of Kacie Huerta, Primary Ost eoarthritis Knee Left (Primary Dx); Orthopedic Surgery in [place], Spond ylitis ([facility]) Jose Daniel Dean D.N.P. [address] [phone] Social History Tobacco Use Types Packs/Day [...] not be able to do this in [place]. In regard to his knee I did [...] agrees with this plan. Questions were answered LITE MOLDER documented in this encounter Procedure Notes Loly Betts L.P.N. - 10/30/2020 8:00 AM CSTAssociated Order(s): flh-piml-vmfbohwj-elbow arthrocentesis: L knee joint Post-Procedure Diagnose(s): Primary [...] dressing care and follow-up with ordering provider LITE MOLDER documented in this encounter Plan of Treatment Scheduled Referrals Name Type Priority Associated Diagnoses Order S chedule Pain Medicine - Outpatient Referral Routine Spondylitis (HCC) Expected: General consult 10/30/2020 (clinic) (Approximate), Expires: 10/30/2023 documented as of this encounter Procedures Procedure Name Priority Date/Time Associated Diagnosis Comme nts [place] ARTHCS ASP/INJ Routine 10/30/2020 8:00 AM Primary Osteoarth ritis Results for this MJR JT WO US BAKELITE MOLDER Knee Left procedure are i n the results section. documented in this encounter Results [place] ARTHCS ASP/INJ MJR JT WO US (10/30/2020 8:00 AM BAKELITE MOLDER) Narrative MMODAL - 10/30/2020 8:00 AM BAKELITE MOLDER Loly Betts L.P.N. ? 10/31/2020 ??3:30 AM [...] injection 60 mg Given 10/30/2020 8:00 AM BAKELITE MOLDER 60 mg (KENALOG-40) 60 mg, intra-articular, One-Time Injection, Starting on Thu10/30/20 at 0800, For 1 dose documented in this encounter Additional Health Concerns Assessment Noted Time PHQ-9 Depression Total Score: 18 02/14/2013 9:53 AM CD T documented as of this encounter Care Teams Subsurface Augmentee Operator Relationship Specialty Start Date End Date Cintia Cobb M.D. PCP - General 02/19/17 02/20/[address] [phone] documented as of this encounter
--- OUTSIDE RECORDS SUMMARY | 2022-08-12 09:17 | XMS_ITS | Encounter Summary ---
:1960 Author Organization [facility] Address [address] [place] [address] Care Team Providers Name Role Phone Cintia Cobb M.D. Primary Care Provider Encounter Details Date Type Department Care Team Description 02/05/2021 Orders Only [facility]N PCP [facility] Priyanka Cobb Mellitus Type DREWT Cintia Piper M.D. 2 With Diabetic [address] [address] Neuropathy ( HCC) [place] [address] (Wo rk) Social History Tobacco [...] documented as of this encounter Care Teams Hospitality Team Member Relationship Specialty Start Date End Date Cintia Cobb M.D. PCP - General 02/19/17 02/20/22 [address] [facility] [address] [place] [phone] documented as of this encounter
--- OUTSIDE RECORDS SUMMARY | 2022-08-12 09:17 | XMS_ITS | Encounter Summary ---
:1960 Author Organization [facility] Address [address] [place] [address] Care Team Providers Name Role Phone Cintia Cobb M.D. Primary Care Provider [phone] Reason for Visit Reason Comments Pain Medicine Intake - Return Patient Patient here for consult, c/o low back pain Visit with radiating pain down lef t leg to the foot. [facility] had back sugery in 1988. No known injury. Outpatient (Routine) - Closed Specialty Diagnoses / Procedures Referred By Contact Refer red To Contact Pain Medicine Diagnoses Spondylitis (HCC) Kacie Huerta APRN, [facility] D.N.P. [address] [place] [phone] Referral ID Status Reason Start Date Expiration Date Visits V isits Requested Authorized [id number] Closed Specialty 10/30/2020 10/30/2021 1 1 Services Required Encounter Details Date Type Department Care Team Description 12/03/2020 Comprehensive Visit Department of Pain Christian Gonzalez Low Back Chronic (Primary Dx); Medicine in [facility] Keely RAZO Spondylitis (HCC); [place], [place] [address] [facility] Spondylosis Lumbar Without Myelopathy; [address] [place], [place] [phone] Social History Tobacco Use Types Packs/Day [...] He is unable to undergo evaluation in [place] by report. He states that there were some inappropriate behavior, which resulted in termination from that campus. He has been up to [facility] in the [facility]. He has undergone evaluations of musculoskeletal issues as well as his low back. He was previously referred to [facility]. He underwent an epidural injection, which gave [...] Procedure: ESOPHAGOGASTRODUODENOSCOPY; Surgeon: Rene Carlson M.D.; Location: [facility] GI LAB ??? LAPAROSCOPIC ASSISTED - GASTRIC BYPASS N/A 11/21/2014 Laparoscopic assisted - Gastric bypass ??? OPEN REDUCTION INTERNAL FIXATION FEMUR Left 08/13/2019 Procedure: OPEN REDUCTION INTERNAL FIXATION LEFT FEMUR; Surgeon: John Norman M.D.; Location:[facility] OR ??? OTHER CONVERTED [...] like to consider some options in the [facility]. We offered to make [...] spent a total of 53 minutes in emb-tsba-ox-face time performing a review of the record [...] documented as of this encounter Care Teams Hydroelectric Station Operator Chief Relationship Specialty Start Date End Date Cintia Cobb M.D. PCP - General 02/19/17 02/20/[address] [place] [phone] documented as of this encounter
--- OUTSIDE RECORDS SUMMARY | 2022-08-12 09:17 | XMS_ITS | Encounter Summary ---
:1960 Author Organization [facility] Address [address] [place] [address] Care Team Providers Name Role Phone Cintia Cobb M.D. Primary Care Provider [phone] Reason for Referral Outpatient (Routine) - Closed Specialty Diagnoses / Procedures Referred By Contact Refer red To Contact Diagnoses Pain Low Back Chronic Spondylosis Lumbar Without Myelopathy Radiculopathy Lumbar Christian Gonzalez II, M.D. External, Referring [address] [place] [address] Referral ID Status Reason Start Date Expiration Visits Visits Date Requested Authorized [id number] Closed Continuity of 12/04/2020 12/04/2021 1 1 Care Outpatient (Routine) - Closed Specialty Diagnoses / Procedures Referred By Contact Refer red To Contact Diagnoses Pain Low Back Chronic Spondylosis Lumbar Without Myelopathy Radiculopathy Lumbar Christian Gonzalez II, M.D. External, Referring [address] [place] [address] Referral ID Status Reason Start Date Expiration Visits Visits Date Requested Authorized [id number] Closed Continuity of 12/04/2020 12/04/2021 1 1 Care Outpatient (Routine) - Closed Specialty Diagnoses / Procedures Referred By Contact Refer red To Contact Diagnoses Pain Low Back Chronic Spondylosis Lumbar Without Myelopathy Radiculopathy Lumbar Christian Gonzalez II, M.D. External, Referring [address] [place] [address] Referral ID Status Reason Start Date Expiration Visits Visits Date Requested Authorized [id number] Closed Continuity of 12/04/2020 12/04/2021 1 1 Care Encounter Details Date Type Department Care Team Description 12/04/2020 Orders Only Department of Pain Estrella Mark, Pain Low Back Chronic (Primary Dx); [place] Spondylosis Lumbar Without Myelopathy; [place] [phone] Radiculopathy Lumbar [address] [facility] (Work) [place] [address] Social History Tobacco Use Types [...] documented as of this encounter Care Teams Toys And Games Hand Finisher Relationship Specialty Start Date End Date Cintia Cobb M.D. PCP - General 02/19/17 02/20/[address] [phone] documented as of this encounter
--- OUTSIDE RECORDS SUMMARY | 2022-08-12 09:17 | XMS_ITS | Encounter Summary ---
:[address] [facility] Address [address] [place] [address] Care Team Providers Name Role Phone Cintia Cobb M.D. Primary Care Provider [phone] Encounter Details Date Type Department Care Team Description 12/25/2020 Hospital Encounter Department of Abhay Elizondo Admini strative Purpose Laboratory Medicine MLinda, Ph.D. Exam in [address] [address] [place], [place] [phone] (Work) [phone] Social History Tobacco Use Types Packs/Day Years [...] as of this encounter Care Teams Brand Strategy Manager Relationship Specialty Start Date End Date Cintia Cobb M.D. PCP - General 02/19/17 02/20/[address] [phone] documented as of this encounter
--- OUTSIDE RECORDS SUMMARY | 2022-08-12 09:17 | XMS_ITS | Encounter Summary ---
:1960 Author Organization [facility] Address [address] [place] [address] Care Team Providers Name Role Phone Cintia Cobb M.D. Primary Care Provider [phone] Encounter Details Date Type Department Care Team Description 11/14/2020 Orders Only [facility] Sa chico Brand M.D. [address] [place], [place] [phone] (Wo rk) Social History [...] documented as of this encounter Care Teams Real Estate Director Relationship Specialty Start Date End Date Cintia Cobb M.D. PCP - General 02/19/17 02/20/[address] [place] [phone] documented as of this encounter
--- OUTSIDE RECORDS SUMMARY | 2022-08-12 09:17 | XMS_ITS | Encounter Summary ---
:1960 Author Organization [facility] Address [address] [place] [address] Care Team Providers Name Role Phone Cinita Cobb M.D. Primary Care Provider [phone] Encounter Details Date Type Department Care Team Description 10/09/2020 Orders Only Department of [facility] Angélica Cobb Medicine, [facility]per M.D. Clinic, [address] [address] [place], [place] [phone] (W ork) [phone] Social History Tobacco Use Types Packs/Day Years [...] as of this encounter Care Teams Business Services Specialist Sales Relationship Specialty Start Date End Date Cintia Cobb M.D. PCP - General 02/19/17 02/20/[address] [place] [phone] documented as of this encounter
--- OUTSIDE RECORDS SUMMARY | 2022-08-12 09:17 | XMS_ITS | Encounter Summary ---
:1960 Author Organization [facility] Address [address] [place] [address] Care Team Providers Name Role Phone Cintia Cobb M.D. Primary Care Provider [phone] Reason for Visit Outpatient (Routine) - Canceled Specialty Diagnoses / Procedures Referred By Contact Refer red To Contact Family Medicine Diagnoses Anemia Microcytic Hypertension Essential Primary Diabetes Mellitus Type 2 With Diabetic Neuropathy (HCC) Hyperlipidemia On Treatment Gastric Bypass Status Post [facility] Gianna Piper M.D. [address] [place] [phone] Referral ID Status Reason Start Date Expiration Date Visits V isits Requested Authorized [id number] Canceled 11/08/2019 11/07/2020 1 1 Encounter Details Date Type Department Care Team Description 12/18/2020 Office Visit Department of [facility] Terri Cobb Mellitus Type 2 With Diabetic Neuropathy (HCC) (Primary Dx); MedicineMerlyn M.D. Diabetes Mellitus Type 2 Peripheral Neur opathy (HCC); [facility], in [address] [place] [address] Gastric Bypass Status Post; [facility] [employer] Flutter Atrial (HCC); [facility] [place] Pacemaker Cardiac Status Pos t; [address] [place] [phone] Benign Prostatic Hyperplasia Without Obs truction; [place] [phone] (W ork) Pain Low Back; [phone] Intertrigo; [phone] Anemia Iron Def iciency Social History Tobacco [...] Organization Address City/State/ZIP Code Phon e Number [facility]- [address] [place], [place] [address] [place] [address] System in [place] [address] documented in this encounter [...] documented as of this encounter Care Teams District Manager In Training Relationship Specialty Start Date End Date Cintia Cobb M.D. PCP - General 02/19/17 02/20/[address] [place] [phone] documented as of this encounter
--- OUTSIDE RECORDS SUMMARY | 2022-08-12 09:17 | XMS_ITS | Encounter Summary ---
:1960 Author Organization [facility] Address [address] [place] [address] Care Team Providers Name Role Phone Cintia Cobb M.D. Primary Care Provider [phone] Reason for Visit Reason Comments Follow-up Triage note 02/05 Encounter Details Date Type Department Care Team Description 02/11/2021 Clinical Department of [place] Follow-up ([facility] Communication Family Medicine, Cintia Copeland note 02/05) [facility] M.D[facility] Clinic, in [address] [address] [place], [place] [phone] (Work) [phone] Social History Tobacco Use Types Packs/Day Years [...] appointment with his spine surgeon in the [facility]. If he does not, he should [...] documented as of this encounter Care Teams Exterior Designer Relationship Specialty Start Date End Date Cintia Cobb M.D. PCP - General 02/19/17 02/20/[address] [phone] documented as of this encounter
--- OUTSIDE RECORDS SUMMARY | 2022-08-12 09:17 | XMS_ITS | Encounter Summary ---
:1960 Author Organization [facility] Address [address] [place] [address] Care Team Providers Name Role Phone Cintia Cobb M.D. Primary Care Provider [phone] Encounter Details Date Type Department Care Team Description 11/07/2020 Orders Only [facility] PCP [facility] Priyanka Cobb Mellitus Type DREWT Cintia Piper M.D. 2 With Diabetic [address] [address] Neuropathy ( HCC) [place] [phone] (Wo rk) Social History Tobacco [...] as of this encounter Care Teams Certified Home Health Aide Relationship Specialty Start Date End Date Cintia Cobb M.D. PCP - General 02/19/17 02/20/22 [address] [facility] [address] [place] [phone] documented as of this encounter
--- OUTSIDE RECORDS SUMMARY | 2022-08-12 09:17 | XMS_ITS | Encounter Summary ---
:1960 Author Organization [facility] Address [address] [place] [address] Care Team Providers Name Role Phone Cintia Cobb M.D. Primary Care Provider [phone] Reason for Visit Reason Comments Back Surgery questions Encounter Details Date Type Department Care Team Description 12/25/2020 Clinical Department of [place] [facility] Communication Family Medicine, Cintia Copeland [facility] M.D[facility] Clinic, in [address] [address] [place], [place] [phone] (Work) [phone] Social History Tobacco Use Types Packs/Day Years [...] on 01/04/2021 PMR. Telephone Encounter - Estrella aHji L.PPiliN. - 12/31/2020 10:25 AM CDT Left [...] as of this encounter Care Teams Furnace Worker Relationship Specialty Start Date End Date Cintia Cobb M.D. PCP - General 02/19/17 02/20/[address] [phone] documented as of this encounter
--- OUTSIDE RECORDS SUMMARY | 2022-08-12 09:17 | XMS_ITS | Encounter Summary ---
:1960 Author Organization [facility] Address [address] [place] [address] Care Team Providers Name Role Phone Cintia Cobb M.D. Primary Care Provider [phone] Encounter Details Date Type Department Care Team Description 11/09/2020 Clinical Communication Department of Kacie Huerta, Orthopedic Surgery in [facility] [place] D.N.P. [address] [phone] Social History Tobacco Use Types Packs/Day Years Used Date Smoking Tobacco: Never Smokeless Tobacco: Never Alcohol Use Standard Drinks/Week Comments No 0 (1 standard drink = 0.6 oz pure alcoho l) Sex Assigned at Date Recorded Not on file documented as of this encounter Miscellaneous Notes Telephone Encounter - Maricel Aleman R.N. - 11/13/2020 4:55 PM REFRACTORY SPECIALIST Left another message on patient's phone to update his plan of care. ACTORY SPECIALIST Telephone Encounter - Maricel Aleman R.N. - 11/12/2020 11:26 AM REFRACTORY SPECIALIST LM for patient to callback on mobile number. ACTORY SPECIALIST Telephone Encounter - Emelia Mujica L.P.N. - 11/09/2020 12:55 PM REFRACTORY SPECIALIST Attempt to contact patient his phone is currently not taking call. ACTORY SPECIALIST Telephone Encounter - Aleksandra Garcia L.P.N. - 11/09/2020 12:38 PM REFRACTORY SPECIALIST Per Kacie- she would like to wait and see for the next couple weeks and see if this changes since gordyid find some relief. If the pain is still the same in 2 more weeks, she would like to order a CT of his knee. ACTORY SPECIALIST Telephone Encounter - Emelia Mujica L.P.N. - 11/09/2020 11:29 AM REFRACTORY SPECIALIST Patient called with update on Left knee cortisone injection 10/30/20. He reports that it took away some of the pain but is lime vat tender to touch on the left inside of knee. He does not wish to proceed with Pt he does have a pace maker so is unsure of option of a MRI. Please advise on next steps in plane of care. ACTORY SPECIALIST documented in this encounter Plan of Treatment Not on filedocumented as of this encounter Visit Diagnoses Not on filedocumented in this encounter Additional Health Concerns Assessment Noted Time PHQ-9 Depression Total Score: 18 02/14/2013 9:53 AM CD T documented as of this encounter Care Teams Aircraft Load Controller Relationship Specialty Start Date End Date Cintia Cobb M.D. PCP - General 02/19/17 02/20/[address] [place] [phone] documented as of this encounter
--- OUTSIDE RECORDS SUMMARY | 2022-08-12 09:17 | XMS_ITS | Encounter Summary ---
:1960 Author Organization [facility] Address [address] [place] [address] Care Team Providers Name Role Phone Cintia Cobb M.D. Primary Care Provider [phone] Encounter Details Date Type Department Care Team Description 12/18/2020 Hospital Encounter Department of [place] Diabetes Mellitus Laboratory Medicine Cintia Copeland Type 2 With Diabetic in Feliz Arellano M.D. Neuropathy ([facility]) [address] [place] [phone] Social History Tobacco Use Types Packs/Day [...] documented as of this encounter Care Teams Value Stream Manager Relationship Specialty Start Date End Date Cintia Cobb M.D. PCP - General 02/19/17 02/20/[address] [phone] documented as of this encounter
--- OUTSIDE RECORDS SUMMARY | 2022-08-12 09:17 | XMS_ITS | Encounter Summary ---
:1960 Author Organization [facility] Address [address] [place] [address] Care Team Providers Name Role Phone Cintia Cobb M.D. Primary Care Provider [phone] Reason for Visit Reason Comments D5 and Colon Screen Encounter Details Date Type Department Care Team Description 10/09/2020 Clinical Department of [place] D5 and Colon S creen Communication Family MedicineMin Megan [place] S, M.D. Clinic, in [address] [address] [place], [place] [phone] (Work) [phone] Social History Tobacco Use Types Packs/Day Years Used Date Smoking Tobacco: Never Smokeless Tobacco: Never Alcohol Use Standard Drinks/Week Comments No 0 (1 standard drink = 0.6 oz pure alcoho l) Sex Assigned at Date Recorded Not on file documented as of this encounter Miscellaneous Notes Telephone Encounter - Xochitl Hackett L.PPiliN. - 10/09/2020 7:48 AM BUSINESS RULES DEVELOPER In reviewing the patient's diabetic quality metrics, [...] his D5 quality measures not met. (BR) NESS RULES DEVELOPER documented in this encounter Plan of Treatment Not on filedocumented as of this encounter Visit Diagnoses Not on filedocumented in this encounter Additional Health Concerns Assessment Noted Time PHQ-9 Depression Total Score: 18 02/14/2013 9:53 AM CD T documented as of this encounter Care Teams Lpn Cma Relationship Specialty Start Date End Date Cintia Cobb M.D. PCP - General 02/19/17 02/20/[address] [place] [phone] documented as of this encounter
--- OUTSIDE RECORDS SUMMARY | 2022-08-12 09:17 | XMS_ITS | Encounter Summary ---
:1960 Author Organization [facility] Address [address] [place] [address] Care Team Providers Name Role Phone Cintia Cobb M.D. Primary Care Provider Encounter Details Date Type Department Care Team Description 10/15/2020 Clinical Communication Department of Kacie Huerta, Orthopedic Surgery in [facility] [place] D.N.P. [address] [place] [phone] Social History Tobacco Use Types Packs/Day Years [...] documented as of this encounter Care Teams Pain Management Physician Relationship Specialty Start Date End Date Cintia Cobb M.D. PCP - General 02/19/17 02/20/[phone] [place] [phone] documented as of this encounter
--- OUTSIDE RECORDS SUMMARY | 2022-08-12 09:17 | XMS_ITS | Encounter Summary ---
:1960 Author Organization [facility] Address [address] [place] [address] Care Team Providers Name Role Phone Cintia Cobb M.D. Primary Care Provider [phone] Encounter Details Date Type Department Care Team Description 09/05/2020 Clinical Communication Department of Kacie Huerta, Orthopedic Surgery in [facility] [place] D.N.P. [address] [phone] Social History Tobacco Use Types Packs/Day Years Used Date Smoking Tobacco: Never Smokeless Tobacco: Never Alcohol Use Standard Drinks/Week Comments No 0 (1 standard drink = 0.6 oz pure alcoho l) Sex Assigned at Date Recorded Not on file documented as of this encounter Miscellaneous Notes Telephone Encounter - Suzie Quan R.N. - 09/05/2020 3:04 PM WEIGHER ALLOY Spoke with Magali, patients . She will call at her convenience to schedule an appointment with Kacie to review Ed's CT scans. HER ALLOY Telephone Encounter - Suzie Quan R.N. - 09/05/2020 3:03 PM WEIGHER ALLOY ----- Message from Kacie Huerta APRN, C.NPiliPPili, D.N.P. sent at 09/05/2020 10:11 AM WEIGHER ALLOY ----- Can we schedule a follow up to review CT scans? No hurry. Thanks HER ALLOY documented in this encounter Plan of Treatment Not on filedocumented as of this encounter Visit Diagnoses Not on filedocumented in this encounter Additional Health Concerns Assessment Noted Time PHQ-9 Depression Total Score: 18 02/14/2013 9:53 AM CD T documented as of this encounter Care Teams Retail Banker Relationship Specialty Start Date End Date Cintia Cobb M.D. PCP - General 02/19/17 02/20/[address] [place] [phone] documented as of this encounter
--- OUTSIDE RECORDS SUMMARY | 2022-08-12 09:17 | XMS_ITS | Encounter Summary ---
:1960 Author Organization [facility] Address [address] [place] [address] Care Team Providers Name Role Phone Cintia Cobb M.D. Primary Care Provider [phone] Encounter Details Date Type Department Care Team Description 12/18/2020 Hospital Encounter Department of [place] Anemia; Laboratory Cintia Copeland Gastric Bypa ss Status Post; Medicine in Jose Daniel Piper M.D. 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 LAB BLOOD ADD-ON Performing Organization Address City/State/[facility] Code Phon e Number [id number] [place] [address] [place] [address] System [address] (ABNORMAL) Basic Metabolic Panel (12/18/2020 7:49 [...] CDT eGFR-Black/Afri >90 >=60 12/18/2020 CNFL can Ivorian mL/min/BSA 8:31 PM CDT Comment: ----ADDITIONAL INFORMATION---- [...] Organization Address City/State/ZIP Code Phon e Number [facility]- [address] [place] [phone] [place] [address] [place] [address] [address] (ABNORMAL) Vitamin B12 Assay (12/18/2020 7:49 [...] M.D. LAB BLOOD ADD-ON Performing Organization Address City/[facility] Phon e Number [facility]- [address] [place] [phone] [facility] [place] [address] System [address] (ABNORMAL) CBC without Differential (12/18/2020 7:48 PM CDT) [facility] gist Method Time Signature Hemoglobin [...] Organization Address City/State/ZIP Code Phon e Number [facility]- [address] [place] [address] [place] [address] [facility] [place] [address] [address] Hemoglobin A1c (12/18/2020 7:48 PM CDT) athologist Signature Hemoglobin A1c, 5.3 4.2 - 5.6 12/18/2020 CNFL B % 8:33 PM CDT Specimen Anatomical Collection Method Collection Time Receive d Time (Source) Location / / Volume Laterality Blood (Blood, 12/18/2020 7:48 PM 12/19/19 8:07 Venous) CDT PM CDT Cintia Copeland M.D. LAB BLOOD ADD-ON Performing Organization Address City/[facility]/ZIP Code Phon e Number [address] [address] [facility] [place] [address] System in [place] [address] [address] 25-Hydroxyvitamin D2 and D3 (12/18/2020 7:48 [...] and its performa nce characteristics determined by [facility] in a manner consistent with CLIA requirements. [...] CLINIC [address] [place], [place] [address] [facility] [place] [address] Laboratory Medicine and Pathology [address] [...] documented as of this encounter Care Teams Electrician Helper Powerhouse Relationship Specialty Start Date End Date Cintia Cobb M.D. PCP - General 02/19/17 02/20/[address] [place] [phone] documented as of this encounter
--- OUTSIDE RECORDS SUMMARY | 2022-08-12 09:17 | XMS_ITS | Encounter Summary ---
:1960 Author Organization [facility] Address [address] [place] [address] Care Team Providers Name Role Phone Cintia Cobb M.D. Primary Care Provider Reason for Visit Reason Comments Med Refill Encounter Details Date Type Department Care Team Description 09/20/2020 Refill Department of Infusion Cintia Cobb Med Refill Therapy in Feliz Arellano M.D. [address] [phone] (Wo rk) Social History Tobacco Use Types [...] documented as of this encounter Care Teams Athletic Scout Relationship Specialty Start Date End Date Cintia Cobb M.D. PCP - General 02/19/17 02/20/[address] [place] [phone] documented as of this encounter
--- OUTSIDE RECORDS SUMMARY | 2022-08-12 09:17 | XMS_ITS | Encounter Summary ---
:1960 Author Organization [facility] Address [address] [place] [address] Care Team Providers Name Role Phone Cintia Bullock M.D. Primary Care Provider [phone] Reason for Referral Outpatient (Routine) - Closed Specialty Diagnoses / Procedures Referred By Contact Refer red To Contact Pain Medicine Diagnoses Pain Low Back Unspecified Cintia Bullock DREW Piper M.D. [address] [place] [phone] Referral ID Status Reason Start Date Expiration Date Visits V isits Requested Authorized [id number] Closed Specialty 02/18/2021 02/18/2022 1 1 Services Required Reason for Visit Reason Comments Medical Information Encounter Details Date Type Department Care Team Description 02/05/2021 [facility], [place] [facility], in [place] [address] [place] [address] [address] [place] [address] Social History Tobacco Use Types [...] with his spine surgeon in the [facility]. If he does not, he [...] take the pressure off the nerves to [facility]/ [place]. Call disconnected and unable to reach in callback. Message sent to primary as requested. documented in this encounter Plan of Treatment Scheduled Referrals Name Type Priority Associated Diagnoses Order S [facility] Pain Medicine - Outpatient Referral Routine Pain Low Back Expe cted: General consult 02/19/2021, (clinic) Expires: 02/19/2024 documented as of this encounter Visit Diagnoses Diagnosis Pain Low Back Unspecified - Primary documented in this encounter Additional Health Concerns Assessment Noted Time PHQ-9 Depression Total Score: 18 02/14/2013 9:53 AM CD T documented as of this encounter Care Teams Wool Merchant Relationship Specialty Start Date End Date Cintia Bullock M.D. PCP - General 02/19/17 02/20/[address] [place] [phone] documented as of this encounter
--- OUTSIDE RECORDS SUMMARY | 2022-08-12 09:17 | XMS_ITS | Encounter Summary ---
:1960 Author Organization [facility] Address [address] [place] [address] Care Team Providers Name Role Phone Cintia Cobb M.D. Primary Care Provider [phone] Reason for Visit Reason Comments Follow-up Medication request Encounter Details Date Type Department Care Team Description 01/30/2021 Clinical Communication Department of [facility] Follow-up Medicine in [place] R.N. ([place], [place] [phone] request) [address] [facility] (Work) [place] [address] Social History Tobacco Use Types [...] name and he states he has a german friend in the [facility] with similar back problems that was going [...] Ihave a wet back friend in the [facility] with similar back problems who was given [...] documented as of this encounter Care Teams Camp Counselor Relationship Specialty Start Date End Date Cintia Cobb M.D. PCP - General 02/19/17 02/20/[address] [place] [phone] documented as of this encounter
--- OUTSIDE RECORDS SUMMARY | 2022-08-12 09:17 | XMS_ITS | Encounter Summary ---
:1960 Author Organization [facility] Address [address] [place] [address] Care Team Providers Name Role Phone Cintia Cobb M.D. Primary Care Provider [phone] Reason for Visit Reason Comments Med Refill Encounter Details Date Type Department Care Team Description 11/20/2020 Refill Department of [facility] Angélica Cobb Med Refill Medicine, [facility] Daniel Piper M.D[facility] Clinic, in [address] [address] [place], [place] [address] [phone] Social History Tobacco Use Types Packs/Day Years [...] documented as of this encounter Care Teams Cotton Chopper Relationship Specialty Start Date End Date Cintia Cobb M.D. PCP - General 02/19/17 02/20/[address] [place] [phone] documented as of this encounter
--- OUTSIDE RECORDS SUMMARY | 2022-08-12 09:17 | XMS_ITS | Encounter Summary ---
:1960 Author Organization [facility] Address [address] [place] [address] Care Team Providers Name Role Phone Cintia Cobb M.D. Primary Care Provider [phone] Reason for Visit Reason Comments Paper Work Referrals Outside of [place] Encounter Details Date Type Department Care Team Description 12/04/2020 Clinical Communication Department of Christian Mcduffie Paper Work Medicine in [place] M.D. (Referrals Outside [place], [place] [address] [facility]) [address] [place] [phone] Social History Tobacco Use Types Packs/Day Years [...] not decided if he will go to [facility] in [place] or to [facility] in [place]. documented in this encounter Plan of Treatment Not on filedocumented as of this encounter Visit Diagnoses Not on filedocumented in this encounter Additional Health Concerns Assessment Noted Time PHQ-9 Depression Total Score: 18 02/14/2013 9:53 AM CD T documented as of this encounter Care Teams Game Master Relationship Specialty Start Date End Date Cintia Cobb M.D. PCP - General 02/19/17 02/20/[address] [phone] documented as of this encounter
--- OUTSIDE RECORDS SUMMARY | 2022-08-12 09:18 | XMS_ITS | Encounter Summary ---
:1960 Author Organization [facility] Address [address] [place] [address] Care Team Providers Name Role Phone Cintia Cobb M.D. Primary Care Provider [phone] Reason for Referral Outpatient (Routine) - Closed Specialty Diagnoses / Procedures Referred By Contact Refer red To Contact Diagnoses Trochanteric Bursitis Left Hip Kacie Huerta, [place], [facility] Procedures uff-hkwr-aquxazlt-elbow arthrocentesis: L greater troch bursa C.N.P., D.N.P. [address] [place] [address] Referral ID Status Reason Start Date Expiration Date Visits Requ ested Visits Authorized [id number] Closed 08/07/2020 08/07/2021 1 1 DING STONECUTTER Reason for Visit Reason Comments Pain Appointment Request (Routine) - Closed Specialty Diagnoses / Procedures Referred By Contact Refer red To Contact Orthopedic Surgery Referral ID Status Reason Start Date Expiration Date Visits Requ ested Visits Authorized [id number] Closed 08/07/2020 08/07/2021 1 1 Encounter Details Date Type Department Care Team Description 08/07/2020 Office Visit Department of Kacie Huerta, Pain Hip Le ft (Primary Dx); Orthopedic Surgery in [place] C.N.PPili, Troch anteric Bursitis Left Hip Fidel CondonN.P. [place] [phone] [place] [phone] Social History [...] should be repeated prior to that visit. DING STONECUTTER documented in this encounter Procedure Notes Aleksandra Garcia L.P.N. - 08/07/2020 10:30 AM CSTAssociated Order(s): fdk-hacv-bnwutope-elbow arthrocentesis: L greater troch bursa Post-Procedure Diagnose(s): [...] dressing care and follow-up with ordering provider DING STONECUTTER documented in this encounter Plan of Treatment Not on filedocumented as of this encounter Procedures Procedure Name Priority Date/Time Associated Diagnosis Comme nts OH ARTHCS ASP/INJ Routine 08/07/2020 10:30 Trochanteric Bursit is Results for this MJR JT WO US AM BUILDING STONECUTTER Left Hip procedure are i n the results section. documented in this encounter Results DX Hip Left 2-3 Views (08/07/2020 11:00 AM BUILDING STONECUTTER) Anatomical Region Laterality Modality Lower Extremity, Hip, Musculoskeletal RST LOS, Left Digital Radiography Musculoskeletal ARZ LOS, Muskuloskeletal FLA LOS Specimen (Source) Anatomical Collection Method Collection Time Re ceived Time Location / / Volume Laterality 08/07/2020 11:28 AM BUILDING STONECUTTER Impressions 08/07/2020 11:29 AM BUILDING STONECUTTER Postoperative changes proximal left femoral intramedullary rodding screw fixation across the intertrochanteric fr acture. Hardware is intact. No evidence of acute osseous abnormality. Mild degen erative changes of the bilateral hips. Atherosclerotic vascular disease. March 092019 comparison. Narrative 08/07/2020 11:29 AM BUILDING STONECUTTER EXAM: DX HIP LEFT 2-3 VIEWS Procedure [...] C.N.PPili, D.N.P. IMG DIAGNOSTIC IMAG ING PROCEDURES OH ARTHCS ASP/INJ MJR JT WO US (08/07/2020 10:30 AM BUILDING STONECUTTER) Narrative MMODAL - 08/07/2020 10:30 AM BUILDING STONECUTTER Aleksandra Garcia L.P.N. ? 08/08/2020 ??9:00 AM [...] (1 %) injection Given 08/07/2020 11:35 AM BUILDING STONECUTTER 5 mL 5 mL (XYLOCAINE) 5 mL, infiltration, One-Time Injection, Starting on Thu08/07/20 at 1135, For 1 dose methylPREDNISolone acetate injection 80 mg Given 08/07/2020 11:3 5 AM BUILDING STONECUTTER 80 mg (DEPO-Medrol) 80 mg, intra-articular, One-Time Injection, Starting on Thu08/07/20 at 1135, For 1 dose documented in this encounter Additional Health Concerns Assessment Noted Time PHQ-9 Depression Total Score: 18 02/14/2013 9:53 AM CD T documented as of this encounter Care Teams Auto Body Repairer Relationship Specialty Start Date End Date Cintia Cobb M.D. PCP - General 02/19/17 02/20/[address] [place] [phone] documented as of this encounter"
--- OUTSIDE RECORDS SUMMARY | 2022-08-12 09:18 | XMS_ITS | Encounter Summary ---
:1960 Author Organization [facility] Address [address] [place] [address] Care Team Providers Name Role Phone Cintia Cobb M.D. Primary Care Provider [phone] Encounter Details Date Type Department Care Team Description 04/06/2020 Clinical Communication [facility], Jose Daniel Piper M.D. [address] [address] [place], [place] [phone] (Work) [phone] Social History Tobacco Use Types Packs/Day Years Used Date Smoking Tobacco: Never Smokeless Tobacco: Never Alcohol Use Standard Drinks/Week Comments No 0 (1 standard drink = 0.6 oz pure alcoho l) Sex Assigned at Date Recorded Not on file documented as of this encounter Miscellaneous Notes Telephone Encounter - Eli Enrique Abby - 04/06/2020 3:04 PM CDT ([facility] and [facility] locations only: If the patient is not having symptoms and is requesting COVID-19 Nasal Swab testing only, use the process listed in the COVID-19 Patient Requesting COVID PCR Test OTG COVID-19 [place] Patient Requesting COVID PCR Test). 1. Do [...] documented as of this encounter Care Teams English As A Second Language Teacher Relationship Specialty Start Date End Date Cintia Cobb M.D. PCP - General 02/19/17 02/20/[address] [place] [phone] documented as of this encounter
--- OUTSIDE RECORDS SUMMARY | 2022-08-12 09:18 | XMS_ITS | Encounter Summary ---
:1960 Author Organization [facility] Address [address] [place] [address] Care Team Providers Name Role Phone Cintia Cobb M.D. Primary Care Provider [phone] Encounter Details Date Type Department Care Team Description 04/12/2020 Clinical Communication Department of John Norman , Orthopedic Surgery in [place] [address] [phone] Social History Tobacco Use Types Packs/Day Years [...] as of this encounter Care Teams Hand Spring Repairer Relationship Specialty Start Date End Date Cintia Cobb M.D. PCP - General 02/19/17 02/20/[address] [phone] documented as of this encounter
--- OUTSIDE RECORDS SUMMARY | 2022-08-12 09:18 | XMS_ITS | Encounter Summary ---
:1960 Author Organization [facility] Address [address] [place] [address] Care Team Providers Name Role Phone Cintia Cobb M.D. Primary Care Provider [phone] Reason for Visit Reason Comments Communication Encounter Details Date Type Department Care Team Description 01/06/2020 Clinical Communication Department of Kacie Huerta C ommunication Orthopedic Surgery in [facility] C.[place], [place] D.N.P. [address] [facility] [address] [place] [phone] Social History Tobacco Use Types Packs/Day Years [...] documented as of this encounter Care Teams International Exchange Coordinator Relationship Specialty Start Date End Date Cintia Cobb M.D. PCP - General 02/19/17 02/20/[address] [place] [phone] documented as of this encounter
--- OUTSIDE RECORDS SUMMARY | 2022-08-12 09:18 | XMS_ITS | Encounter Summary ---
:1960 Author Organization [facility] Address [address] [place] [address] Care Team Providers Name Role Phone Cintia Cobb M.D. Primary Care Provider [phone] Reason for Visit Physical Therapy (Routine) - Closed Specialty Diagnoses / Procedures Referred By Contact Refer red To Contact Diagnoses Pain Shoulder Right [facility] Procedures PT Evaluate and treat [place] Piper [address] [place] [phone] Referral ID Status Reason Start Date Expiration Date Visits Requ ested Visits Authorized [id number] Closed 11/08/2019 11/07/2020 1 1 Encounter Details Date Type Department Care Team Description 01/25/2020 Comprehensive Visit Department of Song Cintia Jorgensen M.D. [address] [place] [phone] Pain Shoulder Rehabilitation Lesli Dias P.T. [address] [phone] Right Services in [address] [phone] Social History Tobacco Use Types [...] eval and treat Onset Date: 08/12/19 Payor: [employer] [place] CARE / Plan: [employer] BLUE PLUS HMO / Product Type: Medicaid [...] Dias P.T. Department of Rehabilitation Services in [address] [address] Dept: [phone] documented in this encounter Plan of Treatment Not on filedocumented as of this encounter Visit Diagnoses Diagnosis Pain Shoulder Right documented in this encounter Additional Health Concerns Assessment Noted Time PHQ-9 Depression Total Score: 18 02/14/2013 9:53 AM CD T documented as of this encounter Care Teams Dealer Development Manager Relationship Specialty Start Date End Date Cintia Cobb M.D. PCP - General 02/19/17 02/20/[address] [place] [phone] documented as of this encounter
--- OUTSIDE RECORDS SUMMARY | 2022-08-12 09:18 | XMS_ITS | Encounter Summary ---
:1960 Author Organization [facility] Address [address] [place] [address] Care Team Providers Name Role Phone Cintia Cobb M.D. Primary Care Provider [phone] Encounter Details Date Type Department Care Team Description 01/11/2020 Office Visit Department of Kacie Huerta, Follow Up E xamination Orthopedic Surgery in [place] C.N.P., Posto perative Visit [place], [place] D.N.P. (Primary Dx) [address] [facility] [address] [place] [phone] Social History Tobacco Use Types Packs/Day Years [...] documented as of this encounter Care Teams Perforator Relationship Specialty Start Date End Date Cintia Cobb M.D. PCP - General 02/19/17 02/20/[address] [place] [phone] documented as of this encounter
--- OUTSIDE RECORDS SUMMARY | 2022-08-12 09:18 | XMS_ITS | Encounter Summary ---
:1960 Author Organization [facility] Address [address] [place] [address] Care Team Providers Name Role Phone Cintia Cobb M.D. Primary Care Provider [phone] Reason for Visit Reason Comments PT Progress Note Encounter Details Date Type Department Care Team Description 01/02/2020 Clinical Department of [facility], PT Progress No te Communication Rehabilitation Lesli Oakes Services in [address], [address] [place] [phone] Social History Tobacco Use Types Packs/Day Years [...] documented as of this encounter Care Teams Boat Operator Relationship Specialty Start Date End Date Cintia Cobb M.D. PCP - General 02/19/17 02/20/[address] [place] [phone] documented as of this encounter
--- OUTSIDE RECORDS SUMMARY | 2022-08-12 09:18 | XMS_ITS | Encounter Summary ---
:1960 Author Organization [facility] Address [address] [place] [address] Care Team Providers Name Role Phone Cintia Cobb M.D. Primary Care Provider Reason for Visit Reason Comments PT Progress Note Encounter Details Date Type Department Care Team Description 01/13/2020 Clinical Department of [facility], PT Progress No te Communication Rehabilitation Lesli Oakes Services in [address], [address] [place] [phone] Social History Tobacco Use Types Packs/Day Years [...] documented as of this encounter Care Teams Freezer Laboratory Technician Relationship Specialty Start Date End Date Cintia Cobb M.D. PCP - General 02/19/17 02/20/[address] [place] [phone] documented as of this encounter
--- OUTSIDE RECORDS SUMMARY | 2022-08-12 09:18 | XMS_ITS | Encounter Summary ---
:1960 Author Organization [facility] Address [address] [place] [address] Care Team Providers Name Role Phone Cintia Cobb M.D. Primary Care Provider [phone] Reason for Visit Physical Therapy (Routine) - Canceled Specialty Diagnoses / Procedures Referred By Contact Refer red To Contact Diagnoses Follow Up Examination Postoperative Visit Fracture Hip Intertrochanteric Closed Initial Left (HCC) Kacie Huerta APRN, [facility] Procedures PT Ongoing treatment C.N.P., D.N.P. [address] [place] [phone] Referral ID Status Reason Start Date Expiration Date Visits V isits Requested Authorized [id number] Canceled 10/13/2019 10/12/2020 99 99 Encounter Details Date Type Department Care Team Description 01/18/2020 Clinical Department of Kacie Huerta APRN, C.N.P., D.N.P. [address] [place] [phone] Follow Up Examination Postoperative Visi t; Support Rehabilitation Lesli Dias P.TPili [address] [place] [phone] Fracture Hip Intertrochanteric Closed In itial Left (HCC) Services in [address] [place] [address] Social History Tobacco Use Types Packs/Day Years [...] Payor: [facility] CARE / Plan: [facility] BLUE PLUS HMO / Product Type: [...] P.T. Department of Rehabilitation Services in [address] [address] Dept: [phone] documented in this encounter Plan of Treatment Not on filedocumented as of this encounter Visit Diagnoses Diagnosis Follow Up Examination Postoperative Visi t Fracture Hip Intertrochanteric Closed In itial Left (HCC) documented in this encounter Additional Health Concerns Assessment Noted Time PHQ-9 Depression Total Score: 18 02/14/2013 9:53 AM CD T documented as of this encounter Care Teams Forensic Investigator Relationship Specialty Start Date End Date Cintia Cobb M.D. PCP - General 02/19/17 02/20/[address] [place] [phone] documented as of this encounter
--- OUTSIDE RECORDS SUMMARY | 2022-08-12 09:18 | XMS_ITS | Encounter Summary ---
:1960 Author Organization [facility] Address [address] [place] [address] Care Team Providers Name Role Phone Cintia Cobb M.D. Primary Care Provider [phone] Reason for Visit Physical Therapy (Routine) - Canceled Specialty Diagnoses / Procedures Referred By Contact Refer red To Contact Diagnoses Follow Up Examination Postoperative Visit Fracture Hip Intertrochanteric Closed Initial Left (HCC) Kacie Huerta APRN, [facility] Procedures PT Ongoing treatment C.N.P., D.N.P. [address] [place] [address] Referral ID Status Reason Start Date Expiration Date Visits V isits Requested Authorized [id number] Canceled 10/13/2019 10/12/2020 99 99 Encounter Details Date Type Department Care Team Description 02/01/2020 Clinical Department of Kacie Huerta APRN, C.N.P., D.N.P. [address] [place] [phone] Follow Up Examination Postoperative Visi t; Support Rehabilitation Lesli Dias P.TPili [address] [place] [phone] Fracture Hip Intertrochanteric Closed In itial Left (HCC) Services in [address] [place] [address] Social History Tobacco Use Types Packs/Day Years [...] [facility] CARE / Plan: [facility] BLUE PLUS HMO / Product Type: Medicaid [...] Dias P.T. Department of Rehabilitation Services in [address] [address] Dept: [phone] documented in this encounter Plan of Treatment Not on filedocumented as of this encounter Visit Diagnoses Diagnosis Follow Up Examination Postoperative Visi t Fracture Hip Intertrochanteric Closed In itial Left (HCC) documented in this encounter Additional Health Concerns Assessment Noted Time PHQ-9 Depression Total Score: 18 02/14/2013 9:53 AM CD T documented as of this encounter Care Teams Web Operations Lead Relationship Specialty Start Date End Date Cintia Cobb M.D. PCP - General 02/19/17 02/20/[address] [place] [phone] documented as of this encounter
--- OUTSIDE RECORDS SUMMARY | 2022-08-12 09:18 | XMS_ITS | Encounter Summary ---
:1960 Author Organization [facility] Address [address] [place] [address] Care Team Providers Name Role Phone Cintia Cobb M.D. Primary Care Provider [phone] Reason for Visit Physical Therapy (Routine) - Canceled Specialty Diagnoses / Procedures Referred By Contact Refer red To Contact Diagnoses Follow Up Examination Postoperative Visit Fracture Hip Intertrochanteric Closed Initial Left (HCC) Kacie Huerta APRN, [facility] Procedures PT Ongoing treatment C.N.P., D.N.P. [address] [place] [phone] Referral ID Status Reason Start Date Expiration Date Visits V isits Requested Authorized [id number] Canceled 10/13/2019 10/12/2020 99 99 Encounter Details Date Type Department Care Team Description 01/05/2020 Clinical Department of Kacie Huerta APRN, C.N.P., D.N.P. [address] [place] [phone] Follow Up Examination Postoperative Visi t; Support Rehabilitation Lesli Dias P.TPili [address] [place] [phone] Fracture Hip Intertrochanteric Closed In itial Left (HCC) Services in [address] [place] [address] Social History Tobacco Use Types Packs/Day Years [...] [facility] CARE / Plan: [facility] [employer] HMO / Product Type: Medicaid HMO / [...] Dias P.T. Department of Rehabilitation Services in [address] [address] Dept: [phone] documented in this encounter Plan of Treatment Not on filedocumented as of this encounter Visit Diagnoses Diagnosis Follow Up Examination Postoperative Visi t Fracture Hip Intertrochanteric Closed In itial Left (HCC) documented in this encounter Additional Health Concerns Assessment Noted Time PHQ-9 Depression Total Score: 18 02/14/2013 9:53 AM CD T documented as of this encounter Care Teams Mexican Food Maker Hand Relationship Specialty Start Date End Date Cintia Cobb M.D. PCP - General 02/19/17 02/20/[address] [phone] documented as of this encounter
--- OUTSIDE RECORDS SUMMARY | 2022-08-12 09:18 | XMS_ITS | Encounter Summary ---
:1960 Author Organization [facility] Address [address] [place] [address] Care Team Providers Name Role Phone Cintia oCbb M.D. Primary Care Provider [phone] Encounter Details Date Type Department Care Team Description 04/06/2020 Hospital Encounter Department of Kacie Huerta Fract ure Hip Closed Radiology in [facility] C.N.P., Initial Left (HCC) [place], [place] D.N.P. [address] [place] [phone] Social History Tobacco Use Types Packs/Day [...] the right hip. Stable lumbosacral spondylosis. Kalia Gratn APRN.N.P., D.N.P. IMG DIAGNOSTIC IMAG ING PROCEDURES documented in this encounter Visit Diagnoses Diagnosis Fracture Hip Closed Initial Left (HCC) documented in this encounter Additional Health Concerns Assessment Noted Time PHQ-9 Depression Total Score: 18 02/14/2013 9:53 AM CD T documented as of this encounter Care Teams Industrial Maintenance Repairer Helper Relationship Specialty Start Date End Date Cintia Cobb M.D. PCP - General 02/19/17 02/20/22 [address] [address] [place] [phone] documented as of this encounter
--- OUTSIDE RECORDS SUMMARY | 2022-08-12 09:18 | XMS_ITS | Encounter Summary ---
:1960 Author Organization [facility] Address [address] [place] [address] Care Team Providers Name Role Phone Cintia Cobb M.D. Primary Care Provider [phone] Reason for Referral Outpatient (Routine) - Closed Specialty Diagnoses / Procedures Referred By Contact Refer red To Contact Orthopedic Surgery Kacie Huerta APRN, [facility] [place] [facility] C.N.P., D.N.P. [address] [place] [address] Referral ID Status Reason Start Date Expiration Date Visits Requ ested Visits Authorized [id number] Closed 08/22/2020 08/22/2021 1 1 RI/CAT/PET Scan (Routine) - Closed Specialty Diagnoses / Procedures Referred By Contact Refer red To Contact Radiology Diagnoses Pain Low Back Unspecified Kacei Huerta APRN, [facility] [place] [facility] Procedures CT Lumbar Spine without IV Contrast C.N.P., D.N.P. [address] [place] [address] Referral ID Status Reason Start Date Expiration Date Visits Requ ested Visits Authorized [id number] Closed 08/22/2020 08/22/2021 1 1 RI/CAT/PET Scan (Routine) - Closed Specialty Diagnoses / Procedures Referred By Contact Refer red To Contact Radiology Diagnoses Pain Hip Left Kacie Huerta APRN, [facility] Region Procedures CT Hip Left without IV Contrast C.N.P., D.N.P. [address] [place] [address] Referral ID Status Reason Start Date Expiration Date Visits Requ ested Visits Authorized [id number] Closed 08/22/2020 08/22/2021 1 1 PRING ASSEMBLER Reason for Visit Reason Comments Injections Encounter Details Date Type Department Care Team Description 08/22/2020 Clinical Communication Department of Kacie Huerta I njections Orthopedic Surgery [place] D.N.P. [address] [facility] [address] [place] [phone] [phone] Social History Tobacco Use Types Packs/Day Years Used Date Smoking Tobacco: Never Smokeless Tobacco: Never Alcohol Use Standard Drinks/Week Comments No 0 (1 standard drink = 0.6 oz pure alcoho l) Sex Assigned at Date Recorded Not on file documented as of this encounter Miscellaneous Notes Telephone Encounter - Xochitl Edge R.N. - 08/24/2020 11:51 AM BEDSPRING ASSEMBLER Patient is scheduled for the CT scans on 08/30/20. PRING ASSEMBLER Telephone Encounter - Mehreen Coleman APRN, C.NEricka, D.N.P. - 08/24/2020 11:15 AM CST Lumbar and hip CT are ordered. Please have his schedule this when he is able. Following imaging, he can schedule with us to discuss results and next steps. If there are back issues seen on CT, he can follow up with whoever he wants. Thanks. PRING ASSEMBLER Telephone Encounter - Xochitl Edge R.N. - 08/24/2020 10:32 AM BEDSPRING ASSEMBLER TC from patient calling to schedule CT [...] with his back, he will return to [facility] for spine care and will not see Dr. Gonzalez. Consult for Dr. Gonzalez has been cancelled per his request and his call was transferred to the scheduling team. PRING ASSEMBLER Telephone Encounter - Aleksandra Garcia L.P.N. - 08/22/2020 11:40 AM BEDSPRING ASSEMBLER Called patient's per his request and informed her of Kacie's message below. Ed does not accept incoming calls from [place] on his phone. His will relay the message to call the scheduling line and set up 2 CT scans, an appointment with Kacie and wait to be called regarding the appointment with Dr. Gonzalez PRING ASSEMBLER Telephone Encounter - Aleksandra Garcia L.P.N. - 08/22/2020 9:49 AM BEDSPRING ASSEMBLER Patient called today with results of his [...] and get back to himhow to proceed. PRING ASSEMBLER documented in this encounter Plan of Treatment Scheduled Referrals Name Type Priority Associated Order Schedule Diagnoses Orthopedic Surgery Outpatient Referral Routine Ex pected: office visit 08/22/2020 (clinic) (Approximate), Expires: 08/22/2023 documented as of this encounter Results CT Hip Left without IV Contrast (08/30/2020 1:21 PM BEDSPRING ASSEMBLER) Anatomical Region Laterality Modality Lower Extremity, Hip, Musculoskeletal RST LOS, Left Computed Tomography Musculoskeletal ARZ LOS, Muskuloskeletal FLA LOS Specimen (Source) Anatomical Collection Method Collection Time Re ceived Time Location / / Volume Laterality 08/30/2020 1:33 PM BEDSPRING ASSEMBLER Impressions 08/30/2020 1:38 PM BEDSPRING ASSEMBLER Intramedullary ovidio and screw fixation across a healed intertrochanteric fracture of the left f emur; hardware appears well seated by CT. Mild left hip joint effusion and/or synovitis. Narrative 08/30/2020 1:38 PM BEDSPRING ASSEMBLER EXAM: CT HIP LEFT WITHOUT IV CONTRAST [...] Spine without IV Contrast (08/30/2020 1:14 PM BEDSPRING ASSEMBLER) Anatomical Region Laterality Modality Lumbar Spine, Neuroradiology RST LOS, Neuroradiology N/A Computed Tomography ARZ LOS, Neuroradiology FLA LOS Specimen (Source) Anatomical Collection Method Collection Time Re ceived Time Location / / Volume Laterality 08/30/2020 1:24 PM BEDSPRING ASSEMBLER Impressions 08/30/2020 1:32 PM BEDSPRING ASSEMBLER Spondylotic changes, as detailed level by level, includes moderate to severe spinal canal narrowing at L3-L 4 and moderate foraminal/extraforaminal narrowing on the left at L5-S1. Narrative 08/30/2020 1:32 PM BEDSPRING ASSEMBLER EXAM: CT LUMBAR SPINE WITHOUT IV CONTRAST [...] as of this encounter Care Teams Client Analyst Relationship Specialty Start Date End Date Cintia Cobb M.D. PCP - General 02/19/17 02/20/[address] [phone] documented as of this encounter
--- OUTSIDE RECORDS SUMMARY | 2022-08-12 09:18 | XMS_ITS | Encounter Summary ---
:1960 Author Organization [facility] Address [address] [place] [address] Care Team Providers Name Role Phone Cintia Cobb M.D. Primary Care Provider [phone] Reason for Visit Reason Comments Quality Metrics - Colon CA screen Encounter Details Date Type Department Care Team Description 02/07/2020 Clinical Department of [employer] s - Communication Family Medicine, Cintia Copeland C A screen Jose Daniel Piper M.D. Clinic, in [address] [address] [place], [place] [phone] (Work) [phone] Social History Tobacco Use Types Packs/Day Years [...] documented as of this encounter Care Teams Self Propelled Hot Mix Roller Operator Relationship Specialty Start Date End Date Cintia Cobb M.D. PCP - General 02/19/17 02/20/[phone] [place] [phone] documented as of this encounter
--- OUTSIDE RECORDS SUMMARY | 2022-08-12 09:18 | XMS_ITS | Encounter Summary ---
:1960 Author Organization [facility] Address [address] [place] [address] Care Team Providers Name Role Phone Cintia Cbob M.D. Primary Care Provider [phone] Encounter Details Date Type Department Care Team Description 06/27/2020 Orders Only Pharmacy Prior Auth RO Unassigned, Pcp [phone] Social History Tobacco Use Types Packs/Day Years [...] documented as of this encounter Care Teams Airway Controller Relationship Specialty Start Date End Date Cintia Cobb M.D. PCP - General 02/19/17 02/20/[address] [place] [phone] documented as of this encounter
--- OUTSIDE RECORDS SUMMARY | 2022-08-12 09:18 | XMS_ITS | Encounter Summary ---
:1960 Author Organization [facility] Address [address] [place] [address] Care Team Providers Name Role Phone Cintia Cobb M.D. Primary Care Provider [phone] Reason for Visit Physical Therapy (Routine) - Canceled Specialty Diagnoses / Procedures Referred By Contact Refer red To Contact Diagnoses Follow Up Examination Postoperative Visit Fracture Hip Intertrochanteric Closed Initial Left (HCC) Kacie Huerta APRN, [facility] Procedures PT Ongoing treatment C.N.P., D.N.P. [address] [place] [address] Referral ID Status Reason Start Date Expiration Date Visits V isits Requested Authorized [id number] Canceled 10/13/2019 10/12/2020 99 99 Encounter Details Date Type Department Care Team Description 12/19/2019 Virtual Visit Department of Kacie Huerta APRN, C.N.P., D.N.P. [address] [place] [phone] Follow Up Examination Postoperative Visi t; Rehabilitation Lesli Dias, P.TPili [address] [place] [phone] Fracture Hip Intertrochanteric Closed In itial Left (HCC) Services in [address] [place] [address] Social History Tobacco Use Types Packs/Day Years [...] Date: 08/12/19 Payor: [facility] CARE / Plan: [facility] Narrable [facility] HMO / Product Type: Medicaid [...] him. 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 Mild difficulty getting in/out of his [...] Dias P.T. Department of Rehabilitation Services in [address] [address] Dept: [phone] documented in this encounter Plan of Treatment Not on filedocumented as of this encounter Visit Diagnoses Diagnosis Follow Up Examination Postoperative Visi t Fracture Hip Intertrochanteric Closed In itial Left (HCC) documented in this encounter Additional Health Concerns Assessment Noted Time PHQ-9 Depression Total Score: 18 02/14/2013 9:53 AM CD T documented as of this encounter Care Teams Trimmer Loader Relationship Specialty Start Date End Date Cintia Cobb M.D. PCP - General 02/19/17 02/20/[address] [place] [phone] documented as of this encounter
--- OUTSIDE RECORDS SUMMARY | 2022-08-12 09:18 | XMS_ITS | Encounter Summary ---
:1960 Author Organization [facility] Address [address] [place] [address] Care Team Providers Name Role Phone Cintia Cobb M.D. Primary Care Provider [phone] Encounter Details Date Type Department Care Team Description 04/06/2020 Hospital Encounter Department of Kacie Huerta, Pain Knee Left Radiology in [facility], [place] D.N.P. [address] [place] [phone] Social History Tobacco Use Types Packs/Day [...] as of this encounter Care Teams Rn Internal Medicine Relationship Specialty Start Date End Date Cintia Cobb M.D. PCP - General 02/19/17 02/20/[phone] [place] [phone] documented as of this encounter
--- OUTSIDE RECORDS SUMMARY | 2022-08-12 09:18 | XMS_ITS | Encounter Summary ---
:1960 Author Organization [facility] Address [address] [place] [address] Care Team Providers Name Role Phone Cintia Cobb M.D. Primary Care Provider [phone] Encounter Details Date Type Department Care Team Description 12/26/2019 Orders Only Department of [facility] Yady Cobb Hip Closed MedicineJose Daniel M.D. Initial Left (HCC) [facility], in [address] [place] [address] (Primary Dx) [address] [address] [place], [place] [phone] (W ork) [address] [phone] Social History Tobacco Use Types Packs/Day Years [...] documented as of this encounter Care Teams Elevator Worker Relationship Specialty Start Date End Date Cintia Cobb M.D. PCP - General 02/19/17 02/20/[address] [place] [phone] documented as of this encounter
--- OUTSIDE RECORDS SUMMARY | 2022-08-12 09:18 | XMS_ITS | Encounter Summary ---
:1960 Author Organization [facility] Address [address] [place] [address] Care Team Providers Name Role Phone Cintia Cobb M.D. Primary Care Provider [phone] Encounter Details Date Type Department Care Team Description 08/07/2020 Hospital Encounter Department of Radiology Otf Huerta, Pain Hip Left in [facility], C.N.P.[place], [place] D.N.P. [address] [place] [phone] Social History Tobacco Use Types Packs/Day [...] s for this VIEWS (most inpatients AM STUDENT AMBASSADOR procedure a re in and all the results outpatients) section. documented in this encounter Results DX Hip Left 2-3 Views (08/07/2020 11:00 AM STUDENT AMBASSADOR) Anatomical Region Laterality Modality Lower Extremity, Hip, Musculoskeletal RST LOS, Left Digital Radiography Musculoskeletal ARZ LOS, Muskuloskeletal FLA LOS Specimen (Source) Anatomical Collection Method Collection Time Re ceived Time Location / / Volume Laterality 08/07/2020 11:28 AM STUDENT AMBASSADOR Impressions 08/07/2020 11:29 AM STUDENT AMBASSADOR Postoperative changes proximal left femoral intramedullary rodding screw fixation across the intertrochanteric fr acture. Hardware is intact. No evidence of acute osseous abnormality. Mild degen erative changes of the bilateral hips. Atherosclerotic vascular disease. March 092019 comparison. Narrative 08/07/2020 11:29 AM STUDENT AMBASSADOR EXAM: DX HIP LEFT 2-3 VIEWS Procedure [...] documented as of this encounter Care Teams Fire Tower Keeper Relationship Specialty Start Date End Date Cintia Cobb M.D. PCP - General 02/19/17 02/20/[address] [phone] documented as of this encounter
--- OUTSIDE RECORDS SUMMARY | 2022-08-12 09:18 | XMS_ITS | Encounter Summary ---
:1960 Author Organization [facility] Address [address] [place] [address] Care Team Providers Name Role Phone Cintia Cobb M.D. Primary Care Provider Reason for Referral MRI/CAT/PET Scan (Routine) - Closed Specialty Diagnoses / Procedures Referred By Contact Refer red To Contact Radiology Diagnoses Pain Low Back Unspecified Kacie Huerta APRN, [facility] [place] [facility] Procedures CT Lumbar Spine without IV Contrast C.N.P., D.N.P. [address] [place] [address] Referral ID Status Reason Start Date Expiration Date Visits Requ ested Visits Authorized [id number] Closed 08/22/2020 08/22/2021 1 1 NCIAL SERVICES TECHNICIAN Reason for Visit MRI/CAT/PET Scan (Routine) - Closed Specialty Diagnoses / Procedures Referred By Contact Refer red To Contact Radiology Diagnoses Pain Low Back Unspecified Kacie Huerta [facility]N [facility] [place] [facility] Procedures CT Lumbar Spine without IV Contrast C.N.P., D.N.P. [address] [place] [address] Referral ID Status Reason Start Date Expiration Date Visits Requ ested Visits Authorized [id number] Closed 08/22/2020 08/22/2021 1 1 Encounter Details Date Type Department Care Team Description 08/30/2020 Hospital Encounter Department of Radiology Otf Huerta, Pain Low Back in [place], [place], C.N.P., [place] D.N.P. [address] [phone] Social History Tobacco Use [...] for this WITHOUT IV (most inpatients PM FINANCIAL SERVICES TECHNICIAN procedure a re in CONTRAST and all the results outpatients) section. documented in this encounter Results CT Lumbar Spine without IV Contrast (08/30/2020 1:14 PM FINANCIAL SERVICES TECHNICIAN) Anatomical Region Laterality Modality Lumbar Spine, Neuroradiology RST LOS, Neuroradiology N/A Computed Tomography ARZ LOS, Neuroradiology FLA [facility] Specimen (Source) Anatomical Collection Method Collection Time Re ceived Time Location / / Volume Laterality 08/30/2020 1:24 PM FINANCIAL SERVICES TECHNICIAN Impressions 08/30/2020 1:32 PM FINANCIAL SERVICES TECHNICIAN Spondylotic changes, as detailed level by level, includes moderate to severe spinal canal narrowing at L3-L 4 and moderate foraminal/extraforaminal narrowing on the left at L5-S1. Narrative 08/30/2020 1:32 PM FINANCIAL SERVICES TECHNICIAN EXAM: CT LUMBAR SPINE WITHOUT IV CONTRAST [...] as of this encounter Care Teams Human Performance Professor Relationship Specialty Start Date End Date Cintia Cobb M.D. PCP - General 02/19/17 02/20/[address] [phone] documented as of this encounter
--- OUTSIDE RECORDS SUMMARY | 2022-08-12 09:18 | XMS_ITS | Encounter Summary ---
:1960 Author Organization [facility] Address [address] [place] [address] Care Team Providers Name Role Phone Cintia Cobb M.D. Primary Care Provider [phone] Reason for Referral MRI/CAT/PET Scan (Routine) - Closed Specialty Diagnoses / Procedures Referred By Contact Refer red To Contact Radiology Diagnoses Pain Hip Left Kacie Huerta APRN, [facility] Region Procedures CT Hip Left without IV Contrast C.N.P., D.N.P. [address] [place] [address] Referral ID Status Reason Start Date Expiration Date Visits Requ ested Visits Authorized [id number] Closed 08/22/2020 08/22/2021 1 1 STIGATOR Reason for Visit MRI/CAT/PET Scan (Routine) - Closed Specialty Diagnoses / Procedures Referred By Contact Refer red To Contact Radiology Diagnoses Pain Hip Left Kacie Huerta APRN, [facility] [place] [facility] Procedures CT Hip Left without IV Contrast C.N.P., D.N.P. [address] [place] [address] Referral ID Status Reason Start Date Expiration Date Visits Requ ested Visits Authorized [id number] Closed 08/22/2020 08/22/2021 1 1 Encounter Details Date Type Department Care Team Description 08/30/2020 Hospital Encounter Department of Radiology Albert Huertaeric devon Oakes, Pain Hip Left in [place], [place], C.N.P., [place] D.N.P. [address] [place] [phone] Social History Tobacco Use Types Packs/Day [...] r this WITHOUT IV (most inpatients PM INVESTIGATOR procedure a re in CONTRAST and all the results outpatients) section. documented in this encounter Results CT Hip Left without IV Contrast (08/30/2020 1:21 PM INVESTIGATOR) Anatomical Region Laterality Modality Lower Extremity, Hip, Musculoskeletal RST LOS, Left Computed Tomography Musculoskeletal ARZ LOS, Muskuloskeletal FLA LOS Specimen (Source) Anatomical Collection Method Collection Time Re ceived Time Location / / Volume Laterality 08/30/2020 1:33 PM INVESTIGATOR Impressions 08/30/2020 1:38 PM INVESTIGATOR Intramedullary ovidio and screw fixation across a healed intertrochanteric fracture of the left f emur; hardware appears well seated by CT. Mild left hip joint effusion and/or synovitis. Narrative 08/30/2020 1:38 PM INVESTIGATOR EXAM: CT HIP LEFT WITHOUT IV CONTRAST [...] documented as of this encounter Care Teams Aviation Safety Inspector Relationship Specialty Start Date End Date Cintia Cobb M.D. PCP - General 02/19/17 02/20/[address] [place] [phone] documented as of this encounter
--- OUTSIDE RECORDS SUMMARY | 2022-08-12 09:18 | XMS_ITS | Encounter Summary ---
:1960 Author Organization [facility] Address [address] [place] [address] Care Team Providers Name Role Phone Cintia Cobb M.D. Primary Care Provider [phone] Encounter Details Date Type Department Care Team Description 07/04/2020 Orders Only [facility] [address] M.D . [address] [place] [phone] [place], [place] [phone] (Wo rk) Social History Tobacco Use [...] documented as of this encounter Care Teams Storekeeper Helper Relationship Specialty Start Date End Date Cintia Cobb M.D. PCP - General 02/19/17 02/20/[phone] [place] [phone] documented as of this encounter
--- OUTSIDE RECORDS SUMMARY | 2022-08-12 09:18 | XMS_ITS | Encounter Summary ---
:1960 Author Organization [facility] Address [address] [place] [address] Care Team Providers Name Role Phone Cintia Cobb M.D. Primary Care Provider [phone] Encounter Details Date Type Department Care Team Description 04/26/2020 Orders Only Department of [facility] Angélica Cobb Medicine, Jose Daniel Piper M.D. Clinic, in [address] [address] [place], [place] [phone] (W ork) [address] [phone] Social History Tobacco Use Types Packs/Day Years [...] documented as of this encounter Care Teams Mail Handlers Supervisor Relationship Specialty Start Date End Date Cintia Cobb M.D. PCP - General 02/19/17 02/20/[address] [place] [phone] documented as of this encounter
--- OUTSIDE RECORDS SUMMARY | 2022-08-12 09:18 | XMS_ITS | Encounter Summary ---
:1960 Author Organization [facility] Address [address] [place] [address] Care Team Providers Name Role Phone Cintia Cobb M.D. Primary Care Provider [phone] Reason for Visit Reason Comments DMV certificate Encounter Details Date Type Department Care Team Description 04/26/2020 Clinical Communication Department of [place] DMV certificate Family MedicineMin Megan [place] S, M.D. Clinic, in [address] [address] [place], [place] [phone] (Work) [phone] Social History Tobacco Use Types Packs/Day Years [...] signed by her and placed at the assignment desk assistant for pick-up. Certificate still needs to be completed by pt (ie. DL number). Certificate at assignment desk assistant awaiting pt pick-up. documented in this encounter Plan of Treatment Not on filedocumented as of this encounter Visit Diagnoses Not on filedocumented in this encounter Additional Health Concerns Assessment Noted Time PHQ-9 Depression Total Score: 18 02/14/2013 9:53 AM CD T documented as of this encounter Care Teams Consumer Analyst Relationship Specialty Start Date End Date Cintia Cobb M.D. PCP - General 02/19/17 02/20/[address] [phone] documented as of this encounter
--- OUTSIDE RECORDS SUMMARY | 2022-08-12 09:18 | XMS_ITS | Encounter Summary ---
:1960 Author Organization [facility] Address [address] [place] [address] Care Team Providers Name Role Phone Cintia Cobb M.D. Primary Care Provider [phone] Reason for Visit Reason Comments Xray request Encounter Details Date Type Department Care Team Description 04/06/2020 Clinical Communication Department of [facility] Yady donahue, Xray request Medicine, Jose Daniel Piper M.D. [facility], [address] [address] [place], [place] [phone] (Work) [phone] Social History Tobacco Use Types Packs/Day Years [...] documented as of this encounter Care Teams Casting Technician Relationship Specialty Start Date End Date Cintia Cobb M.D. PCP - General 02/19/17 02/20/[phone] [place] [phone] documented as of this encounter
--- OUTSIDE RECORDS SUMMARY | 2022-08-12 09:18 | XMS_ITS | Encounter Summary ---
:1960 Author Organization [facility] Address [address] [place] [address] Care Team Providers Name Role Phone Cintia Cobb M.D. Primary Care Provider [phone] Encounter Details Date Type Department Care Team Description 04/12/2020 Orders Only Department of Kacie Huerta, Primary Ost eoarthritis Orthopedic Surgery in [facility], C.N.P., Lumba r Spine (Primary [place], [place] D.N.P. Dx) [address] [phone] Social History Tobacco Use Types Packs/Day Years [...] as of this encounter Care Teams Mechanical Assembly Relationship Specialty Start Date End Date Cintia Cobb M.D. PCP - General 02/19/17 02/20/[phone] [place] [phone] documented as of this encounter
--- OUTSIDE RECORDS SUMMARY | 2022-08-12 09:18 | XMS_ITS | Encounter Summary ---
:1960 Author Organization [facility] Address [address] [place] [address] Care Team Providers Name Role Phone Cintia Cobb M.D. Primary Care Provider Encounter Details Date Type Department Care Team Description 01/11/2020 Hospital Encounter Department of John Norman Up Examination Radiology in [place] M.D. Postoperative Visit [address] [phone] Social History Tobacco Use [...] documented as of this encounter Care Teams Lastex Operator Relationship Specialty Start Date End Date Cintia Cobb M.D. PCP - General 02/19/17 02/20/[phone] [phone] documented as of this encounter
--- OUTSIDE RECORDS SUMMARY | 2022-08-12 09:19 | XMS_ITS | Encounter Summary ---
:1960 Author Organization [facility] Address [address] [place] [address] Care Team Providers Name Role Phone Cintia Cobb M.D. Primary Care Provider [phone] Reason for Visit Physical Therapy (Routine) - Canceled Specialty Diagnoses / Procedures Referred By Contact Refer red To Contact Diagnoses Follow Up Examination Postoperative Visit Fracture Hip Intertrochanteric Closed Initial Left (HCC) Kacie Huerta APRN, [facility] Procedures PT Ongoing treatment C.N.P., D.N.P. [address] [place] [address] Referral ID Status Reason Start Date Expiration Date Visits V isits Requested Authorized [id number] Canceled 10/13/2019 10/12/2020 99 99 Encounter Details Date Type Department Care Team Description 11/03/2019 Clinical Department of Kacie Huerta APRN, C.N.P., D.N.P. [address] [place] [phone] Follow Up Examination Postoperative Visi t; Support Rehabilitation Lesli Dias P.TiPli [address] [place] [phone] Fracture Hip Intertrochanteric Closed In itial Left (HCC) Services in [address] [place] [address] Social History Tobacco Use Types Packs/Day Years [...] Onset Date: 08/12/19 Payor: [facility] CARE / Plan: [facility] [email or web address] HMO / Product Type: Medicaid HMO / [...] TREATMENT Treatment today consisted of: Performed the Triton-Fit total body ergometer x 8 minutes level [...] Dias P.T. Department of Rehabilitation Services in [address] [address] Dept: [phone] TRIC TRUCK DRIVER documented in this encounter Plan of Treatment Not on filedocumented as of this encounter Visit Diagnoses Diagnosis Follow Up Examination Postoperative Visi t Fracture Hip Intertrochanteric Closed In itial Left (HCC) documented in this encounter Additional Health Concerns Assessment Noted Time PHQ-9 Depression Total Score: 18 02/14/2013 9:53 AM CD T documented as of this encounter Care Teams Cocktail Server Relationship Specialty Start Date End Date Cintia Cobb M.D. PCP - General 02/19/17 02/20/[address] [place] [phone] documented as of this encounter
--- OUTSIDE RECORDS SUMMARY | 2022-08-12 09:19 | XMS_ITS | Encounter Summary ---
:1960 Author Organization [facility] Address [address] [place] [address] Care Team Providers Name Role Phone Cintia Cobb M.D. Primary Care Provider [phone] Reason for Visit Reason Onset Date Comments Code Needed 09/15/2019 Encounter Details Date Type Department Care Team Description 09/15/2019 Clinical Communication Department of [facility] rowan, Code Needed Medicine, Jose Daniel Piper M.D. [facility], [address] [address] [place], [place] [phone] (Work) [phone] Social History Tobacco Use Types Packs/Day Years Used Date Smoking Tobacco: Never Smokeless Tobacco: Never Alcohol Use Standard Drinks/Week Comments No 0 (1 standard drink = 0.6 oz pure alcoho l) Sex Assigned at Date Recorded Not on file documented as of this encounter Miscellaneous Notes Telephone Encounter - Fani Mac - 09/15/2019 3:11 PM CST [facility] in [place] is calling requesting an ICD10 code for billing. Please advise. Call back number: [phone] ARY CLERK documented in this encounter Plan of Treatment Not on filedocumented as of this encounter Visit Diagnoses Not on filedocumented in this encounter Additional Health Concerns Assessment Noted Time PHQ-9 Depression Total Score: 18 02/14/2013 9:53 AM CD T documented as of this encounter Care Teams Digital Sales Director Relationship Specialty Start Date End Date Cintia Cobb M.D. PCP - General 02/19/17 02/20/[address] [address] documented as of this encounter
--- OUTSIDE RECORDS SUMMARY | 2022-08-12 09:19 | XMS_ITS | Encounter Summary ---
:1960 Author Organization [facility] Address [address] [place] [address] Care Team Providers Name Role Phone Cintia Cobb M.D. Primary Care Provider [phone] Encounter Details Date Type Department Care Team Description 10/14/2019 Orders Only Department of Mitzi Williamson I., Wound Toe Without Infusion Therapy in [place].N. Damage To Nail Open [address] Subsequent (Primary [place], [place] Dx) [address] [address] [place] [address] Social History Tobacco Use Types Packs/Day [...] documented as of this encounter Care Teams Police Commissioner Relationship Specialty Start Date End Date Cintia Cobb M.D. PCP - General 02/19/17 02/20/[address] [place], [place] [address] [phone] documented as of this encounter
--- OUTSIDE RECORDS SUMMARY | 2022-08-12 09:19 | XMS_ITS | Encounter Summary ---
:1960 Author Organization [facility] Address [address] [place] [address] Care Team Providers Name Role Phone Cintia Cobb M.D. Primary Care Provider [phone] Encounter Details Date Type Department Care Team Description 10/31/2019 Orders Only Department of [facility] Angélica Cobb Medicine, Jose Daniel Piper M.D. Clinic, in [address] [address] [place], [place] [phone] (W ork) [address] [phone] Social History Tobacco Use Types Packs/Day Years [...] documented as of this encounter Care Teams Interlocker Relationship Specialty Start Date End Date Cintia Cobb M.D. PCP - General 02/19/17 02/20/[address] [place] [phone] documented as of this encounter
--- OUTSIDE RECORDS SUMMARY | 2022-08-12 09:19 | XMS_ITS | Encounter Summary ---
:1960 Author Organization [facility] Address [address] [place] [address] Care Team Providers Name Role Phone Cintia Cobb M.D. Primary Care Provider [phone] Reason for Visit Reason Comments Med Refill Encounter Details Date Type Department Care Team Description 09/20/2019 Refill Department of [facility] Angélica oCbb Med Refill Medicine, Jose Daniel Piper M.D. [facility], in [address] [address] [place], [place] [address] [phone] Social History Tobacco Use Types Packs/Day Years [...] documented as of this encounter Care Teams Lumber Tailer Relationship Specialty Start Date End Date Cintia Cobb M.D. PCP - General 02/19/17 02/20/[address] [place] [phone] documented as of this encounter
--- OUTSIDE RECORDS SUMMARY | 2022-08-12 09:19 | XMS_ITS | Encounter Summary ---
:1960 Author Organization [facility] Address [address] [place] [address] Care Team Providers Name Role Phone Cintia Cobb M.D. Primary Care Provider [phone] Reason for Visit Physical Therapy (Routine) - Canceled Specialty Diagnoses / Procedures Referred By Contact Refer red To Contact Diagnoses Follow Up Examination Postoperative Visit Fracture Hip Intertrochanteric Closed Initial Left (HCC) Kacie Huerta APRN, [facility] Procedures PT Ongoing treatment C.N.P., D.N.P. [address] [place] [address] Referral ID Status Reason Start Date Expiration Date Visits V isits Requested Authorized [id number] Canceled 10/13/2019 10/12/2020 99 99 Encounter Details Date Type Department Care Team Description 10/21/2019 Clinical Department of Kacie Huerta APRN, C.N.P., D.N.P. [address] [place] [phone] Follow Up Examination Postoperative Visi t; Support Rehabilitation Lesli Dias P.TPili [address] [place] [phone] Fracture Hip Intertrochanteric Closed In itial Left (HCC) Services in [address] [place] [address] Social History Tobacco Use Types Packs/Day Years [...] [facility] CARE / Plan: [facility] BLUE PLUS HMO / Product Type: Medicaid [...] Dias P.T. Department of Rehabilitation Services in [address] [address] Dept: [phone] CLE OPERATOR documented in this encounter Plan of Treatment Not on filedocumented as of this encounter Visit Diagnoses Diagnosis Follow Up Examination Postoperative Visi t Fracture Hip Intertrochanteric Closed In itial Left (HCC) documented in this encounter Additional Health Concerns Assessment Noted Time PHQ-9 Depression Total Score: 18 02/14/2013 9:53 AM CD T documented as of this encounter Care Teams Passenger Representative Relationship Specialty Start Date End Date Cintia Cobb M.D. PCP - General 02/19/17 02/20/[address] [place] [address] documented as of this encounter
--- OUTSIDE RECORDS SUMMARY | 2022-08-12 09:19 | XMS_ITS | Encounter Summary ---
:1960 Author Organization [facility] Address [address] [place] [address] Care Team Providers Name Role Phone Cintia Cobb M.D. Primary Care Provider [phone] Reason for Visit Physical Therapy (Routine) - Canceled Specialty Diagnoses / Procedures Referred By Contact Refer red To Contact Diagnoses Follow Up Examination Postoperative Visit Fracture Hip Intertrochanteric Closed Initial Left (HCC) Kacie Huerta APRN, [facility] Procedures PT Ongoing treatment C.N.P., D.N.P. [address] [place] [address] Referral ID Status Reason Start Date Expiration Date Visits V isits Requested Authorized [id number] Canceled 10/13/2019 10/12/2020 99 99 Encounter Details Date Type Department Care Team Description 11/25/2019 Clinical Department of Kacie Huerta APRN, C.N.P., D.N.P. [address] [place] [address] Follow Up Examination Postoperative Visi t; Support Rehabilitation Lesli Dias P.TPili [address] [place] [phone] Fracture Hip Intertrochanteric Closed In itial Left (HCC) Services in [address] [place] [address] Social History Tobacco Use Types Packs/Day Years [...] [facility] CARE / Plan: [facility] BLUE PLUS HMO / Product [...] P.T. Department of Rehabilitation Services in [address] [address] Dept: [phone] documented in this encounter Plan of Treatment Not on filedocumented as of this encounter Visit Diagnoses Diagnosis Follow Up Examination Postoperative Visi t Fracture Hip Intertrochanteric Closed In itial Left (HCC) documented in this encounter Additional Health Concerns Assessment Noted Time PHQ-9 Depression Total Score: 18 02/14/2013 9:53 AM CD T documented as of this encounter Care Teams Claim Investigator Relationship Specialty Start Date End Date Cintia Cobb M.D. PCP - General 02/19/17 02/20/[address] [place] [address], [place] [address] documented as of this encounter
--- OUTSIDE RECORDS SUMMARY | 2022-08-12 09:19 | XMS_ITS | Encounter Summary ---
:1960 Author Organization [facility] Address [address] [place] [address] Care Team Providers Name Role Phone Cintia Cobb M.D. Primary Care Provider [phone] Reason for Visit Physical Therapy (Routine) - Canceled Specialty Diagnoses / Procedures Referred By Contact Refer red To Contact Diagnoses Follow Up Examination Postoperative Visit Fracture Hip Intertrochanteric Closed Initial Left (HCC) Kacie Huerta APRN, [facility] Procedures PT Ongoing treatment C.N.P., D.N.P. [address] [place] [address] Referral ID Status Reason Start Date Expiration Date Visits V isits Requested Authorized [id number] Canceled 10/13/2019 10/12/2020 99 99 Encounter Details Date Type Department Care Team Description 11/17/2019 Clinical Department of Kacie Huerta APRN, C.N.P., D.N.P. [address] [place] [phone] Follow Up Examination Postoperative Visi t; Support Rehabilitation Lesli Dias P.TPili [address] [place] [phone] Fracture Hip Intertrochanteric Closed In itial Left (HCC) Services in [address] [place] [address] Social History Tobacco Use Types Packs/Day Years [...] Onset Date: 08/12/19 Payor: CARE / Plan: [employer] BLUE PLUS HMO [...] P.T. Department of Rehabilitation Services in [address] [address] Dept: [phone] documented in this encounter Plan of Treatment Not on filedocumented as of this encounter Visit Diagnoses Diagnosis Follow Up Examination Postoperative Visi t Fracture Hip Intertrochanteric Closed In itial Left (HCC) documented in this encounter Additional Health Concerns Assessment Noted Time PHQ-9 Depression Total Score: 18 02/14/2013 9:53 AM CD T documented as of this encounter Care Teams Draw Furnace Tender Relationship Specialty Start Date End Date Citnia Cobb M.D. PCP - General 02/19/17 02/20/[address] [place] [phone] documented as of this encounter
--- OUTSIDE RECORDS SUMMARY | 2022-08-12 09:19 | XMS_ITS | Encounter Summary ---
:1960 Author Organization [facility] Address [address] [place] [address] Care Team Providers Name Role Phone Cintia Cobb M.D. Primary Care Provider [phone] Encounter Details Date Type Department Care Team Description 11/02/2019 Orders Only Department of [facility] Closed Medicine, Jose Daniel Piper M.D. Initial Left (HCC) [facility], [place] [address] (Primary Dx) [address] [address] [place], [place] [phone] (W ork) [address] [phone] Social History Tobacco Use Types Packs/Day Years Used Date Smoking Tobacco: Never Smokeless Tobacco: Never Alcohol Use Standard Drinks/Week Comments No 0 (1 standard drink = 0.6 oz pure alcoho l) Sex Assigned at Date Recorded Not on file documented as of this encounter Plan of Treatment Not on filedocumented as of this encounter Results DX Hip Left 2-3 Views (11/07/2019 2:58 PM OCCUPATIONAL HEALTH PHYSICIAN) Anatomical Region Laterality Modality Lower Extremity, Hip, Musculoskeletal RST LOS, Left Digital Radiography Musculoskeletal ARZ LOS, Muskuloskeletal FLA LOS Specimen (Source) Anatomical Collection Method Collection Time Re ceived Time Location / / Volume Laterality 11/07/2019 3:14 PM OCCUPATIONAL HEALTH PHYSICIAN Impressions 11/07/2019 3:15 PM OCCUPATIONAL HEALTH PHYSICIAN Postop changes prior IM ovidio, nail fixation [...] Hardware is intact Narrative 11/07/2019 3:15 PM OCCUPATIONAL HEALTH PHYSICIAN EXAM: DX HIP LEFT 2-3 VIEWS COMPARISON: [...] as of this encounter Care Teams Learning And Development Associate Relationship Specialty Start Date End Date Cintia Cobb M.D. PCP - General 02/19/17 02/20/[address] [place] [phone] documented as of this encounter
--- OUTSIDE RECORDS SUMMARY | 2022-08-12 09:19 | XMS_ITS | Encounter Summary ---
:1960 Author Organization [facility] Address [address] [place] [address] Care Team Providers Name Role Phone Cintia Cobb M.D. Primary Care Provider Encounter Details Date Type Department Care Team Description 10/04/2019 Hospital Encounter Department of Kacie Huerta Follo w Up Examination Radiology in [facility], C.N.P., Postope rative Visit [place], [place] D.N.P. [address] [place] [phone] Social History Tobacco Use Types Packs/Day [...] this PELVIS LEFT 2-3 (most inpatients PM LIQUOR MAKER Examination procedur e are in VIEWS and all Postoperative Visit the resu lts outpatients) section. documented in this encounter Results DX Hip And Pelvis Left 2-3 Views (10/04/2019 3:58 PM LIQUOR MAKER) Anatomical Region Laterality Modality Lower Extremity, Pelvis, Hip, Musculoskeletal RST LOS, Left Digital Radiography Musculoskeletal ARZ LOS, Muskuloskeletal FLA LOS Specimen (Source) Anatomical Collection Method Collection Time Re ceived Time Location / / Volume Laterality 10/04/2019 4:42 PM LIQUOR MAKER Impressions 10/04/2019 4:43 PM LIQUOR MAKER Prior surgical fixation across a subacute fracture of the intertrochanteric left femur. The fractu re line remains visible with interval healing change. No evidence of hardware loosening. Negative for acute fracture. Degenerative changes at the lumbosacral junction, both SI joints, and right hip. Demineralization. Narrative 10/04/2019 4:43 PM LIQUOR MAKER EXAM: DX HIP AND PELVIS LEFT 2-3 [...] documented as of this encounter Care Teams Unit Tender Relationship Specialty Start Date End Date Cintia Cobb M.D. PCP - General 02/19/17 02/20/[address] [phone] documented as of this encounter
--- OUTSIDE RECORDS SUMMARY | 2022-08-12 09:19 | XMS_ITS | Encounter Summary ---
:1960 Author Organization [facility] Address [address] [place] [address] Care Team Providers Name Role Phone Cintia Cobb M.D. Primary Care Provider [phone] Reason for Referral Outpatient (Routine) - Closed Specialty Diagnoses / Procedures Referred By Contact Refer red To Contact Diagnoses Fracture Hip Closed Initial Left (HCC) Cintia Cobb [place] Procedures BMD Bone Density Spine Hips S, M.D. [address] [address] Referral ID Status Reason Start Date Expiration Date Visits Requ ested Visits Authorized [id number] Closed 11/08/2019 11/07/2020 1 1 CHING MACHINE OPERATOR Reason for Visit Outpatient (Routine) - Closed Specialty Diagnoses / Procedures Referred By Contact Refer red To Contact Diagnoses Fracture Hip Closed Initial Left (HCC) Cintia Cobb [place] Procedures BMD Bone Density Spine Hips S, M.D. [address] [address] Referral ID Status Reason Start Date Expiration Date Visits Requ ested Visits Authorized [id number] Closed 11/08/2019 11/07/2020 1 1 Encounter Details Date Type Department Care Team Description 11/09/2019 Hospital Encounter Department of Song Fracture Hip Closed Radiology in [place] Cop[place], Cintia Initi al Left ([facility]) [place], [place] S, M.D. [address] [place] [phone] Social History Tobacco Use Types Packs/Day Years [...] for this SPINE HIPS (most inpatients PM QUENCHING MACHINE OPERATOR Closed Initial procedure are in and all Left (HCC) the results outpatients) section. documented in this encounter Results BMD Bone Density Spine Hips (11/09/2019 3:05 PM QUENCHING MACHINE OPERATOR) Anatomical Region Laterality Modality Hip, Lumbar Spine, Nuclear Medicine RST LOS, N/A Radiographic Imaging Musculoskeletal ARZ LOS, Muskuloskeletal FLA LOS Specimen (Source) Anatomical Collection Method Collection Time Re ceived Time Location / / Volume Laterality 11/09/2019 3:29 PM QUENCHING MACHINE OPERATOR Impressions 11/09/2019 3:31 PM QUENCHING MACHINE OPERATOR Osteoporosis. Narrative 11/09/2019 3:31 PM QUENCHING MACHINE OPERATOR EXAM: BMD BONE DENSITY SPINE HIPS COMPARISON: None. Surgeon Assistant/Model: WeedWall FINDINGS: ?? LUMBAR SPINE L1-L4 included unless [...] BMD BONE DENSITY SPINE HIPS COMPARISON: None. Surgeon Assistant/Model: WeedWall FINDINGS: LUMBAR SPINE L1-L4 included unless otherwise [...] documented as of this encounter Care Teams Neuropsychiatric Aide Relationship Specialty Start Date End Date Cintia Cobb M.D. PCP - General 02/19/17 02/20/[address] [place] [phone] documented as of this encounter
--- OUTSIDE RECORDS SUMMARY | 2022-08-12 09:19 | XMS_ITS | Encounter Summary ---
:1960 Author Organization [facility] Address [address] [place] [address] Care Team Providers Name Role Phone Cintia Cobb M.D. Primary Care Provider [phone] Reason for Visit Physical Therapy (Routine) - Canceled Specialty Diagnoses / Procedures Referred By Contact Refer red To Contact Diagnoses Follow Up Examination Postoperative Visit Fracture Hip Intertrochanteric Closed Initial Left (HCC) Kacie Huerta APRN, [facility] Procedures PT Ongoing treatment C.N.P., D.N.P. [address] [place] [address] Referral ID Status Reason Start Date Expiration Date Visits V isits Requested Authorized [id number] Canceled 10/13/2019 10/12/2020 99 99 Encounter Details Date Type Department Care Team Description 11/07/2019 Clinical Department of Kacie Huerta APRN, C.N.P., D.N.P. [address] [place] [phone] Follow Up Examination Postoperative Visi t; Support Rehabilitation Lesli Dias P.TPili [address] [place] [phone] Fracture Hip Intertrochanteric Closed In itial Left (HCC) Services in [address] [place] [address] Social History Tobacco Use Types Packs/Day Years [...] eval and treat Onset Date: 08/12/19 Payor: [facility] CARE / Plan: [facility] [...] P.T. Department of Rehabilitation Services in [address] [address] Dept: [phone] L FILLER documented in this encounter Plan of Treatment Not on filedocumented as of this encounter Visit Diagnoses Diagnosis Follow Up Examination Postoperative Visi t Fracture Hip Intertrochanteric Closed In itial Left (HCC) documented in this encounter Additional Health Concerns Assessment Noted Time PHQ-9 Depression Total Score: 18 02/14/2013 9:53 AM CD T documented as of this encounter Care Teams Sample Examiner Relationship Specialty Start Date End Date Cintia Cobb M.D. PCP - General 02/19/17 02/20/[address] [place] [phone] documented as of this encounter
--- OUTSIDE RECORDS SUMMARY | 2022-08-12 09:19 | XMS_ITS | Encounter Summary ---
:1960 Author Organization [facility] Address [address] [place] [address] Care Team Providers Name Role Phone Cintia Cobb M.D. Primary Care Provider [phone] Reason for Visit Physical Therapy (Routine) - Canceled Specialty Diagnoses / Procedures Referred By Contact Refer red To Contact Diagnoses Follow Up Examination Postoperative Visit Fracture Hip Intertrochanteric Closed Initial Left (HCC) Kacie Huerta APRN, [facility] Procedures PT Ongoing treatment C.N.P., D.N.P. [address] [place] [address] Referral ID Status Reason Start Date Expiration Date Visits V isits Requested Authorized [id number] Canceled 10/13/2019 10/12/2020 99 99 Encounter Details Date Type Department Care Team Description 10/25/2019 Clinical Department of Kacie Huerta APRN, C.N.P., D.N.P. [address] [place] [phone] Follow Up Examination Postoperative Visi t; Support Rehabilitation Lesli Dias P.TPili [address] [place] [phone] Fracture Hip Intertrochanteric Closed In itial Left (HCC) Services in [address] [place] [address] Social History Tobacco Use Types Packs/Day Years [...] Onset Date: 08/12/19 Payor: [facility] CARE / Plan: [facility] BLUE PLUS HMO / Product Type: Medicaid HMO / No data recorded Epic Visit Count: 4 Patient comments: no new complaints. [facility] to work on his home exerciseprogram. OBJECTIVE Pain: controlled TREATMENT Treatment today consisted of: Reviewed precautions at length today. Patient verbalized understanding. Perform the [employer] Medical-Fit Total body ergometer times 10 minutes at [...] Dias P.T. Department of Rehabilitation Services in [address] [address] Dept: [phone] DUST CLEANER AND SALVAGER documented in this encounter Plan of Treatment Not on filedocumented as of this encounter Visit Diagnoses Diagnosis Follow Up Examination Postoperative Visi t Fracture Hip Intertrochanteric Closed In itial Left (HCC) documented in this encounter Additional Health Concerns Assessment Noted Time PHQ-9 Depression Total Score: 18 02/14/2013 9:53 AM CD T documented as of this encounter Care Teams Bottom Pounder Cement Shoes Relationship Specialty Start Date End Date Cintia Cobb M.D. PCP - General 02/19/17 02/20/[address] [place] [phone] documented as of this encounter
--- OUTSIDE RECORDS SUMMARY | 2022-08-12 09:19 | XMS_ITS | Encounter Summary ---
:1960 Author Organization [facility] Address [address] [place] [address] Care Team Providers Name Role Phone Cintia Cobb M.D. Primary Care Provider [phone] Encounter Details Date Type Department Care Team Description 11/07/2019 Hospital Encounter Department of [place] Fracture Hip Closed Radiology in Cintia Jean Baptiste Initi renée Mcmahon ([facility]) [place], [place] Keely Piper [address] [place] [phone] Social History Tobacco Use Types Packs/Day Years [...] Results for this VIEWS (most inpatients PM SHUTTLE SPOTTER Closed Initial procedure are in and all Left (HCC) the results outpatients) section. documented in this encounter Results DX Hip Left 2-3 Views (11/07/2019 2:58 PM SHUTTLE SPOTTER) Anatomical Region Laterality Modality Lower Extremity, Hip, Musculoskeletal RST LOS, Left Digital Radiography Musculoskeletal ARZ LOS, Muskuloskeletal FLA LOS Specimen (Source) Anatomical Collection Method Collection Time Re ceived Time Location / / Volume Laterality 11/07/2019 3:14 PM SHUTTLE SPOTTER Impressions 11/07/2019 3:15 PM SHUTTLE SPOTTER Postop changes prior IM ovidio, nail fixation [...] Hardware is intact Narrative 11/07/2019 3:15 PM SHUTTLE SPOTTER EXAM: DX HIP LEFT 2-3 VIEWS COMPARISON: [...] documented as of this encounter Care Teams Complaint Evaluation Officer Relationship Specialty Start Date End Date Cintia Cobb M.D. PCP - General 02/19/17 02/20/[id number] [phone] documented as of this encounter
--- OUTSIDE RECORDS SUMMARY | 2022-08-12 09:19 | XMS_ITS | Encounter Summary ---
:1960 Author Organization [facility] Address [address] [place] [address] Care Team Providers Name Role Phone Cintia Cobb M.D. Primary Care Provider [phone] Reason for Visit Reason Comments PT Progress Note Encounter Details Date Type Department Care Team Description 11/29/2019 Clinical Department of [place], PT Progress No te Communication Rehabilitation Lesli Oakes Services in [address], [address] [place] [phone] Social History Tobacco Use Types Packs/Day Years [...] sent to patient viaemail provided by patient ([email or web address]). Exercises included SLR, seated hip abduction with [...] documented as of this encounter Care Teams White Sourer Relationship Specialty Start Date End Date Cintia Cobb M.D. PCP - General 02/19/17 02/20/[address] [phone] documented as of this encounter
--- OUTSIDE RECORDS SUMMARY | 2022-08-12 09:19 | XMS_ITS | Encounter Summary ---
:1960 Author Organization [facility] Address [address] [place] [address] Care Team Providers Name Role Phone Cintia Cobb M.D. Primary Care Provider [phone] Reason for Visit Reason Comments PT Progress Note Encounter Details Date Type Department Care Team Description 12/01/2019 Clinical Department of [place], DEVANTE Progress No te Communication Rehabilitation Lesli Oakes Services in [address], [address] [place] [phone] Social History Tobacco Use Types Packs/Day Years [...] documented as of this encounter Care Teams Tour Guide Relationship Specialty Start Date End Date Cintia Cobb M.D. PCP - General 02/19/17 02/20/[address] [phone] documented as of this encounter
--- OUTSIDE RECORDS SUMMARY | 2022-08-12 09:19 | XMS_ITS | Encounter Summary ---
:1960 Author Organization [facility] Address [address] [place] [address] Care Team Providers Name Role Phone Cintia Cobb M.D. Primary Care Provider [phone] Reason for Visit Reason Comments Appointment Encounter Details Date Type Department Care Team Description 11/29/2019 Clinical Communication Department of Kacie Huerta A ppointment Orthopedic Surgery in [facility] [place] D.N.P. [address] [facility] [address] [place] [phone] Social History Tobacco Use Types Packs/Day Years [...] with Kacie Huerta DNP on 12/27/2019 in [place] has been changed to a phone consultation [...] documented as of this encounter Care Teams Leveler Helper Relationship Specialty Start Date End Date Cintia Cobb M.D. PCP - General 02/19/17 02/20/[address] [place] [phone] documented as of this encounter
--- OUTSIDE RECORDS SUMMARY | 2022-08-12 09:19 | XMS_ITS | Encounter Summary ---
:1960 Author Organization [facility] Address [address] [place] [address] Care Team Providers Name Role Phone Cintia Cobb M.D. Primary Care Provider [phone] Reason for Referral Physical Therapy (Routine) - Closed Specialty Diagnoses / Procedures Referred By Contact Refer red To Contact Diagnoses Follow Up Examination Postoperative Visit Fracture Hip Intertrochanteric Closed Initial Left (HCC) Kacie Huerta, [place], [facility] Procedures PT Evaluate and treat C.N.P., D.N.P. [address] [place] [address] Referral ID Status Reason Start Date Expiration Date Visits Requ ested Visits Authorized [id number] Closed 10/04/2019 10/03/2020 1 1 CTOR SALES TRAINING Reason for Visit Appointment Request (Routine) - Closed Specialty Diagnoses / Procedures Referred By Contact Refer red To Contact Family Medicine Referral ID Status Reason Start Date Expiration Date Visits Requ ested Visits Authorized [id number] Closed 09/09/2019 09/08/2020 1 1 Encounter Details Date Type Department Care Team Description 10/04/2019 Office Visit Department of Kacie Huerta, Follow Up E xamination Postoperative Visit (Primary Dx); Orthopedic Surgery [place], C.N.P., Fracture Hip Intertrochanteric Closed Initial Left (HCC) in [place] Dean, FidelN.Tigist. [place] [id number] [place] [phone] Social History Tobacco Use Types Packs/Day [...] the wound nurse. His questions were answered CTOR SALES TRAINING documented in this encounter Plan of Treatment Not on filedocumented as of this encounter Results DX Hip And Pelvis Left 2-3 Views (10/04/2019 3:58 PM DIRECTOR SALES TRAINING) Anatomical Region Laterality Modality Lower Extremity, Pelvis, Hip, Musculoskeletal RST LOS, Left Digital Radiography Musculoskeletal ARZ LOS, Muskuloskeletal FLA LOS Specimen (Source) Anatomical Collection Method Collection Time Re ceived Time Location / / Volume Laterality 10/04/2019 4:42 PM DIRECTOR SALES TRAINING Impressions 10/04/2019 4:43 PM DIRECTOR SALES TRAINING Prior surgical fixation across a subacute fracture of the intertrochanteric left femur. The fractu re line remains visible with interval healing change. No evidence of hardware loosening. Negative for acute fracture. Degenerative changes at the lumbosacral junction, both SI joints, and right hip. Demineralization. Narrative 10/04/2019 4:43 PM DIRECTOR SALES TRAINING EXAM: DX HIP AND PELVIS LEFT 2-3 [...] documented as of this encounter Care Teams Central Lab Technician Relationship Specialty Start Date End Date Cintia Cobb M.D. PCP - General 02/19/17 02/20/[address] [phone] documented as of this encounter
--- OUTSIDE RECORDS SUMMARY | 2022-08-12 09:19 | XMS_ITS | Encounter Summary ---
:1960 Author Organization [facility] Address [address] [place] [address] Care Team Providers Name Role Phone Kevin Bullock M.D. Primary Care Provider [phone] Reason for Referral Outpatient (Routine) - Closed Specialty Diagnoses / Procedures Referred By Contact Refer red To Contact Diagnoses Fracture Hip Closed Initial Left (HCC) Kevin Bullock [facility] Procedures BMD Bone Density Spine Hips Keely Piper [address] [address] Referral ID Status Reason Start Date Expiration Date Visits Requ ested Visits Authorized [id number] Closed 11/08/2019 11/07/2020 1 1 hysical Therapy (Routine) - Closed Specialty Diagnoses / Procedures Referred By Contact Refer red To Contact Diagnoses Pain Shoulder Right Kevin Bullock [facility] Procedures PT Evaluate and treat [place] [address] [address] Referral ID Status Reason Start Date Expiration Date Visits Requ ested Visits Authorized [id number] Closed 11/08/2019 11/07/2020 1 1 [place] HCM CONSULTANT Reason for Visit Appointment Request (Routine) - Closed Specialty Diagnoses / Procedures Referred By Contact Refer red To Contact Family Medicine Referral ID Status Reason Start Date Expiration Date Visits Requ ested Visits Authorized [id number] Closed 10/04/2019 10/03/2020 1 1 Encounter Details Date Type Department Care Team Description 11/08/2019 Office Visit Department of Family Terri Bullock Mellitus Type 2 With Diabetic Neuropathy ([facility]) (Primary Dx); Medicine, Jose Daniel Piper M.D. Diabetes Mellitus Type 2 Ulcer Foot ([facility] ); [facility], in [address] [place] [address] Pain Elle ulder Right; Jose Daniel Dean, [facility] Fracture Hip Closed Initial Left (HCC); [place] Jose Daniel Dean [place] Anemia Microcytic; [address] [place] [address] BLVD [phone] Gastric Bypass Status Post; DREW CONDON [phone] Hypertensio n Essential Primary; [phone] (Work) Hyperlipidemia On Treatment; [phone] Flutter A trial ([facility]) Social History Tobacco Use Types [...] [facility], here in [place]. reports that Ed has been having more [...] Diabetes Mellitus Type 2 With Diabetic Neuropathy ([facility]) Last A1c at goal at 5.7%. #2 Diabetes Mellitus Type 2 Ulcer Foot ([facility]) Recommended that they stop using [...] PT. #4 Fracture Hip Closed Initial Left ([facility]) Continue with PT and orthopedics. [...] is not taking meds. #9 Flutter Atrial ([facility]) Pacemaker in place. Not on [...] Electronically Signed: lidia Ag. 11/08/2019. 7:29 PM [place] HCM CONSULTANT . I, Kevin Copeland M.D., personally performed the services described in this documentation.All medical record entries made by the scribe were at my direction and in my presence. I have reviewed the chart and discharge instructions (if applicable) and agree that the record reflects my personal performance and is accurate and complete. Kevin Copeland M.D. . 11/09/2019. 9:53 PM [place] HCM CONSULTANT. [place] HCM CONSULTANT documented in this encounter Miscellaneous Notes Addendum Note - Kevin Bullock M.D. - 11/08/2019 5:30 PM [place] HCM CONSULTANT Addended by: KEVIN BULLOCK on: 11/19/2019 11:54 [...] Organization Address City/State/ZIP Code Phon e Number [facility]- [address] [place], [place] [address] [facility] [place] [address] System in [place] 70 Juju Good Lipid Panel (12/18/2020 7:49 [...] Organization Address City/State/ZIP Code Phon e Number [facility]- [address] [place] [address] [place] [address] [place] [address] System [address] (ABNORMAL) Basic Metabolic Panel (12/18/2020 7:49 [...] CDT eGFR-Black/Afri >90 >=60 12/18/2020 CN[facility] can Congolese mL/min/BSA 8:31 PM CDT Comment: ----ADDITIONAL INFORMATION---- [...] Organization Address City/State/ZIP Code Phon e Number [facility]- [address] [place] [address] [place] [address] System in [address] (ABNORMAL) CBC without Differential (12/18/2020 7:48 [...] Organization Address City/State/ZIP Code Phon e Number [facility]- [address] [place] [address] [place] [address] System [address] Hemoglobin A1c (12/18/2020 7:48 PM CDT) P athologist Signature Hemoglobin A1c, 5.3 4.2 - 5.6 12/18/2020 CNFL B % 8:33 PM CDT Specimen Anatomical Collection Method Collection Time Receive d Time (Source) Location / / Volume Laterality Blood (Blood, 12/18/2020 7:48 PM 12/19/19 21 8:07 Venous) CDT PM CDT Kevin Copeland M.D. LAB BLOOD ADD-ON Performing Organization Address City/State/[facility] Code Phon e Number [facility] [address] [place] [address] [place] [address] System in [place] [address] [address] 25-Hydroxyvitamin D2 and D3 (12/18/2020 7:48 [...] its performa nce characteristics determined by [facility] in a manner consistent with CLIA requirements. This test has not been cleared or approved by the [place] and Drug Administration. Specimen Anatomical Collection Method Collection Time Receive d Time (Source) Location / / Volume Laterality Blood (Blood, 12/18/2020 7:48 PM 12/21/19 7:59 Venous) CDT AM CDT Kevin Copeland M.D. LAB BLOOD ADD-ON Performing Organization Address City/State/ZIP Code Phon e Number [facility] [address] [place], [place] [address] [place] [address] [place] [address] Laboratory Medicine and Pathology [address] [place] BMD Bone Density Spine Hips (11/09/2019 3:05 PM [place] HCM CONSULTANT) Anatomical Region Laterality Modality Hip, Lumbar Spine, Nuclear Medicine RST LOS, N/A Radiographic Imaging Musculoskeletal ARZ LOS, Muskuloskeletal FLA LOS Specimen (Source) Anatomical Collection Method Collection Time Re ceived Time Location / / Volume Laterality 11/09/2019 3:29 PM [place] HCM CONSULTANT Impressions 11/09/2019 3:31 PM [place] HCM CONSULTANT Osteoporosis. Narrative 11/09/2019 3:31 PM [place] HCM CONSULTANT EXAM: BMD BONE DENSITY SPINE HIPS COMPARISON: None. Dispensing Audiologist/Model: We Cluster FINDINGS: ?? LUMBAR SPINE L1-L4 included unless [...] BMD BONE DENSITY SPINE HIPS COMPARISON: None. Dispensing Audiologist/Model: We Cluster FINDINGS: LUMBAR SPINE L1-L4 included unless otherwise [...] documented as of this encounter Care Teams Operations Manager Assistant Relationship Specialty Start Date End Date Kevin Bullock M.D. PCP - General 02/19/17 02/20/[address] [phone] documented as of this encounter
--- OUTSIDE RECORDS SUMMARY | 2022-08-12 09:19 | XMS_ITS | Encounter Summary ---
:1960 Author Organization [facility] Address [address] [place] [address] Care Team Providers Name Role Phone Cintia Cobb M.D. Primary Care Provider [phone] Reason for Visit Physical Therapy (Routine) - Canceled Specialty Diagnoses / Procedures Referred By Contact Refer red To Contact Diagnoses Follow Up Examination Postoperative Visit Fracture Hip Intertrochanteric Closed Initial Left (HCC) Kacie Huerta APRN, [facility] Procedures PT Ongoing treatment C.N.P., D.N.P. [address] [place] [address] Referral ID Status Reason Start Date Expiration Date Visits V isits Requested Authorized [id number] Canceled 10/13/2019 10/12/2020 99 99 Encounter Details Date Type Department Care Team Description 11/01/2019 Clinical Department of Kacie Huerta APRN, C.N.P., D.N.P. [address] [place] [phone] Follow Up Examination Postoperative Visi t; Support Rehabilitation Lesli Dias P.TPili [address] [place] [phone] Fracture Hip Intertrochanteric Closed In itial Left (HCC) Services in [address] [place] [address] Social History Tobacco Use Types Packs/Day Years [...] and treat Onset Date: 08/12/19 Payor: [facility] CARE / Plan: [facility] [employer] HMO / Product Type: Medicaid HMO / [...] TREATMENT Treatment today consisted of: Performed the Arisoko-Fit total body ergometer x 10 minutes level [...] Dias P.T. Department of Rehabilitation Services in [address] [address] Dept: [phone] ING AND BROACH OPERATOR documented in this encounter Plan of Treatment Not on filedocumented as of this encounter Visit Diagnoses Diagnosis Follow Up Examination Postoperative Visi t Fracture Hip Intertrochanteric Closed In itial Left (HCC) documented in this encounter Additional Health Concerns Assessment Noted Time PHQ-9 Depression Total Score: 18 02/14/2013 9:53 AM CD T documented as of this encounter Care Teams Regulatory Affairs Coordinator Relationship Specialty Start Date End Date Cintia Cobb M.D. PCP - General 02/19/17 02/20/[address] [place] [phone] documented as of this encounter
--- OUTSIDE RECORDS SUMMARY | 2022-08-12 09:19 | XMS_ITS | Encounter Summary ---
:1960 Author Organization [facility] Address [address] [place] [address] Care Team Providers Name Role Phone Cintia Cobb M.D. 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 Wound Toe Without Damage To Nail Open Kiran bsequent; [address] Diabetes Mellitus Type 2 Peripheral Neur opathy ([facility]) [address] [place] [address] [phone] Social History Tobacco Use Types Packs/Day Years [...] no questions or concerns at time ofdischarge. [place] PHARMACY MANAGER documented in this encounter Plan of [...] as of this encounter Care Teams House Wrecker Relationship Specialty Start Date End Date Cintia Cobb M.D. PCP - General 02/19/17 02/20/[address] [place] [phone] documented as of this encounter
--- OUTSIDE RECORDS SUMMARY | 2022-08-12 09:19 | XMS_ITS | Encounter Summary ---
:1960 Author Organization [facility] Address [address] [place] [address] Care Team Providers Name Role Phone Cintia Cobb M.D. Primary Care Provider Reason for Visit Reason Comments Med Refill Encounter Details Date Type Department Care Team Description 09/17/2019 Refill Department of Family Medicine, Gray Danielson M.D. Med Refill [facility], in [place] [address] [address] [place], [place] [address] [phone] Social History Tobacco Use Types Packs/Day Years [...] Cobb M.D. PCP - General 02/19/17 02/20/[address] [phone] documented as of this encounter
--- OUTSIDE RECORDS SUMMARY | 2022-08-12 09:19 | XMS_ITS | Encounter Summary ---
:1960 Author Organization [facility] Address [address] [place] [address] Care Team Providers Name Role Phone Cintia Cobb M.D. Primary Care Provider [phone] Reason for Visit Reason Onset Date Comments diabetic supplies 11/09/2019 Encounter Details Date Type Department Care Team Description 11/09/2019 Clinical Communication Department of [place] [facility] supplies Family MedicineMin Megan [place], M.D. Clinic, in [address] [address] [place], [place] [phone] (Work) [phone] Social History Tobacco Use Types Packs/Day Years Used Date Smoking Tobacco: Never Smokeless Tobacco: Never Alcohol Use Standard Drinks/Week Comments No 0 (1 standard drink = 0.6 oz pure alcoho l) Sex Assigned at Date Recorded Not on file documented as of this encounter Miscellaneous Notes Telephone Encounter - Cintia Cobb M.D. - 11/09/2019 9:12 PM GEOSPATIAL SPECIALIST Script sent. PATIAL SPECIALIST Telephone Encounter - Aminata Hill L.PPiliNPili - 11/09/2019 2:22 PM GEOSPATIAL SPECIALIST Pharmacy called stating they received a prescription for test strips but also need an order for lancets and meter. Orders pended to PCP PATIAL SPECIALIST documented in this encounter Plan of Treatment Not on filedocumented as of this encounter Visit Diagnoses Not on filedocumented in this encounter Additional Health Concerns Assessment Noted Time PHQ-9 Depression Total Score: 18 02/14/2013 9:53 AM CD T documented as of this encounter Care Teams Lan Specialist Relationship Specialty Start Date End Date Cintia Cobb M.D. PCP - General 02/19/17 02/20/[address] [place] [phone] documented as of this encounter
--- OUTSIDE RECORDS SUMMARY | 2022-08-12 09:19 | XMS_ITS | Encounter Summary ---
:1960 Author Organization [facility] Address [address] [place] [address] Care Team Providers Name Role Phone Cintia Cobb M.D. Primary Care Provider [phone] Reason for Visit Physical Therapy (Routine) - Canceled Specialty Diagnoses / Procedures Referred By Contact Refer red To Contact Diagnoses Follow Up Examination Postoperative Visit Fracture Hip Intertrochanteric Closed Initial Left (HCC) Kacie Huerta APRN, [facility] Procedures PT Ongoing treatment C.N.P., D.N.P. [address] [place] [address] Referral ID Status Reason Start Date Expiration Date Visits V isits Requested Authorized [id number] Canceled 10/13/2019 10/12/2020 99 99 Encounter Details Date Type Department Care Team Description 10/27/2019 Clinical Department of Kacie Huerta APRN, C.N.P., D.N.P. [address] [place] [phone] Follow Up Examination Postoperative Visi t; Support Rehabilitation Lesli Dias P.TPili [address] [place] [phone] Fracture Hip Intertrochanteric Closed In itial Left (HCC) Services in [address] [place] [address] Social History Tobacco Use Types Packs/Day Years [...] eval and treat Onset Date: 08/12/19 Payor: [facility] CARE / Plan: [facility] [...] P.T. Department of Rehabilitation Services in [address] [address] Dept: [phone] TRAIN DRIVER documented in this encounter Plan of Treatment Not on filedocumented as of this encounter Visit Diagnoses Diagnosis Follow Up Examination Postoperative Visi t Fracture Hip Intertrochanteric Closed In itial Left (HCC) documented in this encounter Additional Health Concerns Assessment Noted Time PHQ-9 Depression Total Score: 18 02/14/2013 9:53 AM CD T documented as of this encounter Care Teams Safety And Skill Based Pay Manager Relationship Specialty Start Date End Date Cintia Cobb M.D. PCP - General 02/19/17 02/20/[address] [place] [phone] documented as of this encounter
--- OUTSIDE RECORDS SUMMARY | 2022-08-12 09:19 | XMS_ITS | Encounter Summary ---
:1960 Author Organization [facility] Address [address] [place] [address] Care Team Providers Name Role Phone Cintia Cobb M.D. Primary Care Provider [phone] Reason for Visit Physical Therapy (Routine) - Closed Specialty Diagnoses / Procedures Referred By Contact Refer red To Contact Diagnoses Follow Up Examination Postoperative Visit Fracture Hip Intertrochanteric Closed Initial Left (HCC) Kacie Huerta APRN, [facility] Procedures PT Evaluate and treat C.N.P., D.N.P. [address] [place] [address] Referral ID Status Reason Start Date Expiration Date Visits Requ ested Visits Authorized [id number] Closed 10/04/2019 10/03/2020 1 1 Encounter Details Date Type Department Care Team Description 10/13/2019 Comprehensive Visit Department of Kacie Huerta APRN, C.N.P., D.N.P. [address] [place] [phone] Follow Up Examination Postoperative Visi t; Rehabilitation Ivonne Washington P.T., D.P.T. Fracture Hip Intertrochanteric Closed In itial Left (HCC) Services in [address] [phone] Social History Tobacco Use Types Packs/Day Years [...] eval and treat Onset Date: 08/12/19 Payor: [place] [employer] [facility] CARE / Plan: [facility] [employer] HMO / Product Type: Medicaid HMO / [place] Visit Count: 1 PERTINENT MEDICAL / SURGICAL [...] Procedure: ESOPHAGOGASTRODUODENOSCOPY; Surgeon: Rene Carlson M.D.; Location: [facility] ??? LAPAROSCOPIC ASSISTED - GASTRIC BYPASS N/A 11/21/2014 Laparoscopic assisted - Gastric bypass ??? OPEN REDUCTION INTERNAL FIXATION FEMUR Left 08/13/2019 Procedure: OPEN REDUCTION INTERNAL FIXATION LEFT FEMUR; Surgeon: John Norman M.D.; Location:[facility] OR ??? OTHER CONVERTED SHX (SEE COMMENT) [...] His waspresent for the appointment. 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 Supine Quad Set - 10 [...] P.T., D.P.T. Department of Rehabilitation Services in [address] [address] Dept: [phone] THCARE FINANCIAL ANALYST documented in this encounter Plan of Treatment Not on filedocumented as of this encounter Visit Diagnoses Diagnosis Follow Up Examination Postoperative Visi t Fracture Hip Intertrochanteric Closed In itial Left (HCC) documented in this encounter Additional Health Concerns Assessment Noted Time PHQ-9 Depression Total Score: 18 02/14/2013 9:53 AM CD T documented as of this encounter Care Teams Medical Lab Director Relationship Specialty Start Date End Date Cintia Cobb M.D. PCP - General 02/19/17 02/20/[address] [place] [phone] documented as of this encounter
--- OUTSIDE RECORDS SUMMARY | 2022-08-12 09:19 | XMS_ITS | Encounter Summary ---
:[address] [facility] Address [address] [place] [address] Care Team Providers Name Role Phone Cintia Cobb M.D. Primary Care Provider [phone] Reason for Visit Physical Therapy (Routine) - Canceled Specialty Diagnoses / Procedures Referred By Contact Refer red To Contact Diagnoses Follow Up Examination Postoperative Visit Fracture Hip Intertrochanteric Closed Initial Left (HCC) Kacie Huerta APRN, [facility] Procedures PT Ongoing treatment C.N.P., D.N.P. [address] [place] [phone] Referral ID Status Reason Start Date Expiration Date Visits V isits Requested Authorized [id number] Canceled 10/13/2019 10/12/2020 99 99 Encounter Details Date Type Department Care Team Description 10/19/2019 Clinical Department of Kacie Huerta APRN, C.N.P., D.N.P. [address] [place] [phone] Follow Up Examination Postoperative Visi t; Support Rehabilitation Lesli Dias P.TPili [address] [place] [phone] Fracture Hip Intertrochanteric Closed In itial Left (HCC) Services in [address] [place] [address] Social History Tobacco Use Types Packs/Day Years [...] eval and treat Onset Date: 08/12/19 Payor: [facility] CARE / Plan: [facility] [employer] HMO / Product Type: Medicaid HMO / [...] P.T. Department of Rehabilitation Services in [address] [address] Dept: [phone] RIALS INTERN documented in this encounter Plan of Treatment Not on filedocumented as of this encounter Visit Diagnoses Diagnosis Follow Up Examination Postoperative Visi t Fracture Hip Intertrochanteric Closed In itial Left (HCC) documented in this encounter Additional Health Concerns Assessment Noted Time PHQ-9 Depression Total Score: 18 02/14/2013 9:53 AM CD T documented as of this encounter Care Teams Incoming Freight Clerk Relationship Specialty Start Date End Date Cintia Cobb M.D. PCP - General 02/19/17 02/20/[address] [phone] documented as of this encounter
--- OUTSIDE RECORDS SUMMARY | 2022-08-12 09:19 | XMS_ITS | Encounter Summary ---
:1960 Author Organization [facility] Address [address] [place] [address] Care Team Providers Name Role Phone Cintia Cobb M.D. Primary Care Provider [phone] Reason for Visit Reason Comments PT Progress Note Encounter Details Date Type Department Care Team Description 12/08/2019 Clinical Department of Larissa, PT Progress No te Communication Rehabilitation Lesli Oakes Services in [address], [address] [place] [phone] Social History Tobacco Use Types Packs/Day Years [...] as of this encounter Care Teams Bottom Sander Relationship Specialty Start Date End Date Cintia Cobb M.D. PCP - General 02/19/17 02/20/[phone] [place] [phone] documented as of this encounter
--- OUTSIDE RECORDS SUMMARY | 2022-08-12 09:19 | XMS_ITS | Encounter Summary ---
:1960 Author Organization [facility] Address [address] [place] [address] Care Team Providers Name Role Phone Cintia Cobb M.D. Primary Care Provider [phone] Reason for Visit Physical Therapy (Routine) - Canceled Specialty Diagnoses / Procedures Referred By Contact Refer red To Contact Diagnoses Follow Up Examination Postoperative Visit Fracture Hip Intertrochanteric Closed Initial Left (HCC) Kacie Huerta APRN, [facility] Procedures PT Ongoing treatment C.N.P., D.N.P. [address] [place] [address] Referral ID Status Reason Start Date Expiration Date Visits V isits Requested Authorized [id number] Canceled 10/13/2019 10/12/2020 99 99 Encounter Details Date Type Department Care Team Description 11/15/2019 Clinical Department of Kacie Huerta APRN, C.N.P., D.N.P. [address] [place] [phone] Follow Up Examination Postoperative Visi t; Support Rehabilitation Lesli Dias P.TPili [address] [place] [phone] Fracture Hip Intertrochanteric Closed In itial Left (HCC) Services in [address] [place] [address] Social History Tobacco Use Types Packs/Day Years [...] and treat Onset Date: 08/12/19 Payor: [facility] CARE / Plan: [facility] BLUE PLUS HMO / Product Type: Medicaid [...] Dias P.T. Department of Rehabilitation Services in [address] [address] Dept: [phone] documented in this encounter Plan of Treatment Not on filedocumented as of this encounter Visit Diagnoses Diagnosis Follow Up Examination Postoperative Visi t Fracture Hip Intertrochanteric Closed In itial Left (HCC) documented in this encounter Additional Health Concerns Assessment Noted Time PHQ-9 Depression Total Score: 18 02/14/2013 9:53 AM CD T documented as of this encounter Care Teams Safe Deposit Clerk Relationship Specialty Start Date End Date Cintia Cobb M.D. PCP - General 02/19/17 02/20/[address] [place] [phone] documented as of this encounter
--- OUTSIDE RECORDS SUMMARY | 2022-08-12 09:19 | XMS_ITS | Encounter Summary ---
:1960 Author Organization [facility] Address [address] [place] [address] Care Team Providers Name Role Phone Cintia Cobb M.D. Primary Care Provider [phone] Reason for Visit Physical Therapy (Routine) - Canceled Specialty Diagnoses / Procedures Referred By Contact Refer red To Contact Diagnoses Follow Up Examination Postoperative Visit Fracture Hip Intertrochanteric Closed Initial Left (HCC) Kacie Huerta APRN, [facility] Procedures PT Ongoing treatment C.N.P., D.N.P. [address] [place] [phone] Referral ID Status Reason Start Date Expiration Date Visits V isits Requested Authorized [id number] Canceled 10/13/2019 10/12/2020 99 99 Encounter Details Date Type Department Care Team Description 11/23/2019 Clinical Department of Kacie Huerta APRN, C.N.P., D.N.P. [address] [place] [phone] Follow Up Examination Postoperative Visi t; Support Rehabilitation Lesli Dias P.TPili [address] [place] [phone] Fracture Hip Intertrochanteric Closed In itial Left (HCC) Services in [address] [place] [address] Social History Tobacco Use Types Packs/Day Years [...] eval and treat Onset Date: 08/12/19 Payor: [facility] CARE / Plan: [employer] BLUE PLUS HMO / Product Type: Medicaid HMO / No data recorded Epic Visit Count: 11 Patient comments: patient has no new complaints. OBJECTIVE Pain: Patient does have soreness at times. Continues to note hip abductor weakness. However this is improving significantly. TREATMENT Treatment today consisted of: Perform the VoltDB-Fit Total body ergometer times 10 minutes at [...] Dias P.T. Department of Rehabilitation Services in [address] [address] Dept: [phone] documented in this encounter Plan of Treatment Not on filedocumented as of this encounter Visit Diagnoses Diagnosis Follow Up Examination Postoperative Visi t Fracture Hip Intertrochanteric Closed In itial Left (HCC) documented in this encounter Additional Health Concerns Assessment Noted Time PHQ-9 Depression Total Score: 18 02/14/2013 9:53 AM CD T documented as of this encounter Care Teams Data Sciences Director Relationship Specialty Start Date End Date Cintia Cobb M.D. PCP - General 02/19/17 02/20/[address] [place] [phone] documented as of this encounter
--- OUTSIDE RECORDS SUMMARY | 2022-08-12 09:20 | XMS_ITS | Encounter Summary ---
:1960 Author Organization [facility] Address [address] [place] [address] Care Team Providers Name Role Phone Cintia Cobb M.D. Primary Care Provider [phone] Reason for Visit Reason Onset Date Comments Coding 09/15/2019 Encounter Details Date Type Department Care Team Description 09/15/2019 Clinical Communication Department of [facility] Yady donahue, [facility], Jose Daniel Piper M.D. [facility], [address] [address] [place], [place] [phone] (Work) [phone] Social History Tobacco Use Types Packs/Day Years [...] ICD 10 code for patients Mepilex script. WEAVER Telephone Encounter - Eli Enrique - 09/15/2019 3:11 PM CST Tiffany is needing the ICD 10 code for billing on the Mepilex that was prescribed for Ed on 09-12-2019. Please call pharmacy with information, Thanks WEAVER documented in this encounter Plan of Treatment Not on filedocumented as of this encounter Visit Diagnoses Diagnosis Fracture Hip Closed Initial Left (HCC) - Primary documented in this encounter Additional Health Concerns Assessment Noted Time PHQ-9 Depression Total Score: 18 02/14/2013 9:53 AM CD T documented as of this encounter Care Teams Plant Supervisor Relationship Specialty Start Date End Date Cintia Cobb M.D. PCP - General 02/19/17 02/20/[address] [place] [phone] documented as of this encounter
--- OUTSIDE RECORDS SUMMARY | 2022-08-12 09:20 | XMS_ITS | Encounter Summary ---
:1960 Author Organization [facility] Address [address] [place] [address] Care Team Providers Name Role Phone Cintia Cobb M.D. Primary Care Provider [phone] Reason for Referral Outpatient (Routine) - Closed Specialty Diagnoses / Procedures Referred By Contact Refer red To Contact Orthopedic Surgery Diagnoses Follow Up Examination Postoperative Visit John Norman, [facility] [place] [address] Referral ID Status Reason Start Date Expiration Date Visits Requ ested Visits Authorized [id number] Closed 08/16/2019 08/15/2020 1 1 SPLITTER Encounter Details Date Type Department Care Team Description 08/16/2019 Orders Only Department of Keyla Lopez, Follow Up Examination Orthopedic Surgery in [place] Postoperative Visit [place] [phone] (Primary Dx) [address] (Work) [place] [address] Social History Tobacco Use Types Packs/Day [...] documented as of this encounter Care Teams Can Operator Relationship Specialty Start Date End Date Cintia Cobb M.D. PCP - General 02/19/17 02/20/[address] [phone] documented as of this encounter
--- OUTSIDE RECORDS SUMMARY | 2022-08-12 09:20 | XMS_ITS | Encounter Summary ---
:[address] [facility] Address [address] [place] [address] Care Team Providers Name Role Phone Cintia Cobb M.D. Primary Care Provider [phone] Reason for Visit Auth/Cert Specialty Diagnoses / Procedures Referred By Contact Refer red To Contact Diagnoses Pain Joint Fracture Hip Closed Initial Left (HCC) Hip Fracture Procedures n/a Referral ID Status Reason Start Date Expiration Date Visits Requ ested Visits Authorized [id number] 1 1 Encounter Details Date Type Department Care Team Description 08/12/2019 - Hospital Encounter [facility] Dumont, Ed Angélica Oakes [address] [place] [id number] Fracture Hip Closed Initial Left (HCC) ( Primary Dx); 08/16/2019 [facility] Rahel Ashby M.D. [address] [place] [phone] [facility], Third Floor [address] [place] [address] Social History Tobacco Use Types Packs/Day Years Used Date Smoking Tobacco: Never Smokeless Tobacco: Never Alcohol Use Standard Drinks/Week Comments No 0 (1 standard drink = 0.6 oz pure alcoho l) Sex Assigned at Date Recorded Not on file documented as of this encounter Last Filed Vital Signs Vital Sign Reading Time Taken Comments Blood Pressure 110/73 08/16/2019 3:21 AM BAG LOADER Pulse 77 08/15/2019 8:09 PM BAG LOADER Temperature 36.9 ??C (98.4 ??F) 08/16/2019 3:21 AM BAG LOADER Respiratory Rate 16 08/16/2019 3:21 AM BAG LOADER Oxygen Saturation 95% 08/16/2019 3:21 AM BAG LOADER Inhaled Oxygen Concentration - - Weight 80.2 kg (176 lb 12.9 oz) 08/16/2019 5:00 AM BAG LOADER Height 182.9 cm (6') 08/12/2019 12:43 PM BAG LOADER Body Mass Index 23.98 08/12/2019 12:43 PM BAG LOADER documented in this encounter Discharge Summaries Laz Dumont M.D. - 08/16/2019 12:00 PM CST DISCHARGE SUMMARY BRIEF OVERVIEW Discharge Provider: Laz Dumont M.D. Primary Care Providers: Cintia Cobb M.D. ([address] [address] Primary Care Provider Primary Care Provider Other [...] INTERNAL FIXATION LEFT FEMUR John Norman M.D. 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 Had surgery for repair on August 13 [...] and needs to get back to driving [employer] a soon as possible to help with [...] 45 minutes discharge care by me today LOADER documented in this encounter Discharge Instructions Discharge Instr - Non Lynwood Oeyvku-XqqXocbjf-Wtqljiezza, Becky - 08/16/2019 12:01 PM CST Please have Patient seen by PCP on rounds in 3-5 days. LOADER documented in this encounter Medications at Time [...] L hip fx Onset Date: 08/12/19 Payor: [place] [employer] [facility] CARE / Plan: [facility] BLUE [facility] HMO / Product Type: Medicaid [...] min Functional G-code Worksheet Marya Paredes P.T.A. [facility], Third Floor [address] [facility] [address] Dept: [phone] LOADER Associated attestation - Stephanie Diaz PLainey - 08/18/2019 7:58 AM BAG LOADER Physical Therapy Dismissal Snapshot Patient was seen [...] Cristobal, and Dr. Dumont. SWS confirmed with [facility] that thereare no beds today. [...] to go to short term rehab at [address] [place] [address] in [place] today. Ed contacted his , Julissa and confirmed that his friend can not transport until 3pm or later. SWS spoke with [facility]/[address] [place] [address] admissions and confirmed discharge today, by 12noon. Nurse Cristobal completed the Nurse to Nurse. SWS contacted [facility] and [facility] and they both are not available for transport today. SWS contacted [employer] and set up 12noon to transport. O: Discharge Planning for today to arrive no later than 3pm to [address] [place] [address] A: Ed was fully engaged in our conversation and open to going to a SNF upon discharge to decrease the time he is away from work for recovery. P: Discharge today - LOADER Laz Dumont M.D. 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 Patient definitely not interested in a fci after hospitalization, particularly with experiences his mother had in retirement facilities. Ed used a [facility] in [place] to start letter correspondences with dozens of Filipina women around 2003. Julissa, his , is from [facility] active [facility] 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 Had surgery for repair on August 13 [...] help I still recommend it. He skipped [id number] last few months (thinks they cause diarrhea [...] he makes big strides he likely needs retirement help. He is not open to discussing this and fired the clinical social worker today.(he fired me over a [...] care. Spoke with nurse, PT, social work. LOADER Marya Paredes P.T.A. - 08/15/2019 11:26 AM CST Physical Therapy Inpatient Treatment SUBJECTIVE Patient's Name: Laz Cuauhtemoc Davilat Referring/Attending Provider: Rahel Ashby M.D. Medical Diagnosis: Pain Joint [M25.50] Fracture Hip Closed Initial Left (HCC) [S72.002A] Reason for Referral: L hip fx Onset Date: 08/12/19 Payor: [employer] [place] CARE / Plan: [employer] HMO / Product Type: Medicaid HMO / [...] in use of gait belt as leg human services supervisor to assist left LE to edge of [...] min Functional G-code Worksheet Marya Paredes P.T.A. [facility], [facility], Third Floor [address] [facility] [address] Dept: [phone] LOADER Ml Ha L.S.W. - 08/15/2019 11:10 AM [...] SWS passed this information onto Hillary Sotomayor/Nurse [employer] Band Teacher. SWS Shared with Ed that a person [...] that he is not interested in any fci or and followed up with [address] [place] [address]/ Nathalia [phone]., Fax: [phone]. O: Discharge planning continued, Ed was sitting up in the chair and fully engaged in the conversation A: Ed enjoys sarcastic humor and consistent communication. Ed becomes frustrated if he feels he is being misinformed. P: Discharge likely tomorrow, per Dr. Dumont. Transport to be determined. LOADER Kacie Huerta APRN, C.N.P., D.N.P. - 08/15/2019 [...] aware. Will have him follow up in [place] with Orthopedics in 2 weeks. 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 Patient definitely not interested in a fci after hospitalization, particularly with experiences his mother had in retirement facilities. Ed used a [facility] in [place] to start letter correspondences with dozens of Filipina women around 2003. Julissa, his , is from [facility] near active [facility] 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 Had surgery for repair on August 13 [...] with patient, 2 visits so far today. LOADER Lacie Donaldson PSilvano. - 08/13/2019 12:48 PM CST Attempted to get patient up today. Patient continues to have numbness in legs. Will wait to start PTtomorrow 08/14/19. LOADER Alyssa Shepherd O.T. - 08/13/2019 11:43 AM [...] mg (LOVENOX) 08/14/2019 40 mg, subcutaneous, Daily LOADER documented in this encounter H&P Notes John [...] precede with surgical treatment. John Norman M.D. LOADER Source Note - Juliette Bettencourt APRN, C.N.P., D.N.P. - 08/12/2019 2:22 PM BAG LOADER SUBJECTIVE CHIEF COMPLAINT Mr. Laz Luna is a 59 y.o. male who presents with left hip pain. HISTORY OF PRESENT ILLNESS Patient transferred from [place] emergency room this afternoon. Patient works by [employer] and fell on ice while loading his [...] but plans on getting a ride to [facility] tomorrow. Patient scheduled for the following [...] Procedure: ESOPHAGOGASTRODUODENOSCOPY; Surgeon: Rene Carlson M.D.; Location: [facility] GI LAB ??? LAPAROSCOPIC ASSISTED [...] education level: None Occupational History ??? 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 Financial [...] labs, xray and diagnostics from admission and [place] ED. ASSESSMENT / PLAN #1 Fracture Hip Intertrochanteric Closed Initial Left (HCC) Dr Norman orthopedics accepting patient, plan is for surgery 08/13/2019 Follow orthopedic recommendations #2 History Of Falling Fall precautions in place Ambulate with assistance #3 Diabetes Mellitus Type 2 ([facility]) Accucheck BID, Novolog BID Hypoglycemic measures in [...] of plan of care, chart review, and lash-zs-lvbf interview. LOADER Juliette Bettencourt APRN, C.N.P., D.N.P. - 08/12/2019 2:22 PM CST SUBJECTIVE CHIEF COMPLAINT Mr. Laz Luna is a 59 y.o. male who presents with left hip pain. HISTORY OF PRESENT ILLNESS Patient transferred from [place] emergency room this afternoon. Patient works by [employer] and fell on ice while loading his [...] but plans on getting a ride to [facility] tomorrow. Patient scheduled for the following [...] Procedure: ESOPHAGOGASTRODUODENOSCOPY; Surgeon: Rene Carlson M.D.; Location: [facility] GI LAB ??? LAPAROSCOPIC ASSISTED [...] education level: None Occupational History ??? 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 Financial [...] labs, xray and diagnostics from admission and [place] ED. ASSESSMENT / PLAN #1 Fracture Hip [...] of plan of care, chart review, and zkwo-ab-azun interview. LOADER documented in this encounter Consult Notes Alyssa [...] L hip fx Onset Date: 08/12/19 Payor: [facility] CARE / Plan: [facility] BLUE [facility] HMO / Product Type: Medicaid [...] Procedure: ESOPHAGOGASTRODUODENOSCOPY; Surgeon: Rene Carlson M.D.; Location: [facility] GI LAB ??? LAPAROSCOPIC ASSISTED - GASTRIC BYPASS N/A 11/21/2014 Laparoscopic assisted - Gastric bypass ??? OPEN REDUCTION INTERNAL FIXATION FEMUR Left 08/13/2019 Procedure: OPEN REDUCTION INTERNAL FIXATION LEFT FEMUR; Surgeon: John Norman M.D.; Location:[facility] OR ??? OTHER CONVERTED SHX (SEE COMMENT) N/A 01/19/2017 >Implantation of dual-chamber permanent pacemaker. ??? OTHER SURGICAL HISTORY cystoscopy ??? UPPER GASTROINTESTINAL ENDOSCOPY N/A 11/21/2014 Upper gastrointestinal endoscopy History of Present Illness: Patient slipped and fell on the ice. 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 [facility]'s 3-year data, as reported at [facility] 2017, indicates a cut off of 39.4 or greater in daily activity is a fair to good accurate prediction of discharge home. Source: AM-PAC ???6 -Clicks?? functional assessment scores predict acute care hospital discharge destination. Computer Numeric Control Setter. 2014 May; 94 (9): 1251-61. 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 Currently, patient presents with impairments including R hip fx c ORIF completed 08/13/19 resulting in the following functional deficits: impaired ADL/IADL and functional/ADL transfers. Laz Luna is a 59 y.o. year old direct admit to [facility] [place] [facility] following a fall on ice resulting in R hip fracture requiring ORIF completed 08/13/19, admission 08/12/19. Today, Mr. Laz Luna actively participated in education regarding regaining PLOF c basic ADL. Educated in WBAT status. Educatedin adaptive equipment for regaining self care independence. 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 Bathroom Safety Sheet [id number] provided as patient education with recommendations written [...] Daily Activities CMS Modifier: MARYJO Shepherd O.T. [facility], Third Floor [address] [facility] [address] Dept: [phone] LOADER Lacie Donaldson P.T. - 08/14/2019 10:45 AM CST Consults Physical Therapy Inpatient Evaluation/Treatment SUBJECTIVE Patient's Name: Laz Luna Referring/Attending Provider: Rahel Ashby M.D. Medical Diagnosis: Pain Joint [M25.50] Fracture Hip Closed Initial Left (HCC) [S72.002A] Reason for Referral: L hip fx Onset Date: 08/12/19 Payor: [facility] CARE / Plan: [facility] HMO / Product Type: Medicaid HMO [...] Procedure: ESOPHAGOGASTRODUODENOSCOPY; Surgeon: Rene Carlson M.D.; Location: [facility] GI LAB ??? LAPAROSCOPIC ASSISTED - GASTRIC BYPASS N/A 11/21/2014 Laparoscopic assisted - Gastric bypass ??? OTHER CONVERTED SHX (SEE COMMENT) N/A 01/19/2017 >Implantation of dual-chamber permanent pacemaker. ??? OTHER SURGICAL HISTORY cystoscopy ??? UPPER GASTROINTESTINAL ENDOSCOPY N/A 11/21/2014 Upper gastrointestinal endoscopy History of Present Illness: Patient slipped and fell on the ice. 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 [facility], Third Floor [address] [facility] [address] Dept: [phone] LOADER Ml Ha L.S.W. 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 Services Used: No Psychosocial assessment, Coping, adjustment [...] Patient Information Primary Caregiver: Self(Spouse Julissa h: [phone], c:[phone], supportive neighbors and friends) Legal Information Legal [...] to transport upon discharge) Finance/Insurance Primary insurance: [employer] Secondary insurance: N/A Does the Patient have [...] the basement) Support Systems: (Spouse Julissa h: [phone], c:[phone], supportive neighbors and friends) Anticipated Discharge Destination: [facility] or Intermediate Care Facility Recommended Discharge [...] he could likely do outpatient PT in [place] at [address] [place] [address], if he would prefer a location closer than [facility]. He stated that he may prefer to stay in the [facility] and [facility] is the closest. He stated that he is open to SWS sending a referral to [address] [place] [address] to determine if they have the ability to do outpatient PT for him or any other services. SWS received notice from [address] [place] [address] has accepted him for admission for short term rehab. SWS sent a message to [address] [place] [address] asking what outpatient PT services they provide. [...] needed. Signed by: Maria Guadalupe Feng 08/12/2019 LOADER documented in this encounter Nursing Notes Anika [...] as needed- d/c to [facility] in [place]. Denise Morris RPiliN. - 08/16/2019 5:16 AM [...] this shift. Pt refuses Senokot & iron. iVviana Kay R.N. - 08/15/2019 5:52 PM CST [...] Tylenol & Oxycodone for adequate pain control. LOADER Desirae Veras R.N. - 08/14/2019 6:39 PM [...] CST PAS completed and sent to [facility]. PAS [id number] Hanny Hart R.N. - 08/13/2019 10:24 AM CST Patient became very agitated with nurse after she called him sir at the beginning of shift. Patient requested that he has a new nurse. Manager Latin was notified and spoke to the patient [...] Patient remained free of falls this shift. LOADER documented in this encounter OR Notes Op Note - John Norman M.D. - 08/13/2019 7:48 AM CST FULL OP NOTE Procedure(s) (LRB): OPEN REDUCTION INTERNAL FIXATION LEFT FEMUR (Left) Surgeon(s) and Role: * John Norman M.D. - Primary [employer] Mdm Developer: Lesli Zuñiga L.P.N. Anesthesia Type Regional Pre-operative Diagnosis Fracture Hip Intertrochanteric Closed Initial Left (HCC) Post-operative Diagnosis Fracture Hip Intertrochanteric Closed Initial Left (HCC) Full Operative Note Details PROCEDURE(S) Open reduction, intramedullary fixation of left intertrochanteric femur fracture. SURGEON(S) John Norman M.D. AMMUNITION STOREKEEPER: None. ANESTHESIA TYPE Spinal anesthesia. PRE-OPERATIVE DIAGNOSIS [...] closed using #1 Vicryl in an interrupted pvfiwy-se-pjbhx fashion, followed by copious irrigation. Subcutaneous tissue [...] Implant Name Type Inv. Item Serial No. Press Tool Maker Lot No. LRB No. Used NL FEM TFN RT 130D [id number] - SNA - [id number] Hardware e.g. pins/screws/rods NL FEM TFN RT 130D [id number] NA Depuy Synthes [id number] Left [address] 10.5X110 - SNA - [id number] Hardware e.g. pins/screws/rods SCRW TFN FEN ST 10.5X110 NA Depuy Synthes [id number] Left 1 SCRW LCK [facility] TI T25 5X38 - [id number] Hardware e.g. pins/screws/rods SCRW [facility] T25 5X38 Depuy Synthes Left 1 Intra-op Medications Date/Time Order Dose Route Action Action by 08/13/2019 0901 ceFAZolin in NaCl 0.9 % IVPB 2 g (ANCEF) intravenous Anesthesia Volume Adjustment Kalia Luna 08/13/2019 0727 ceFAZolin in NaCl 0.9 % IVPB 2 g (ANCEF) 2 g intravenous Given Kalia Luna M.D. LOADER Brief Op Note - John Norman M.D. - 08/13/2019 7:48 AM CST BRIEF OP NOTE Procedure(s) (LRB): OPEN REDUCTION INTERNAL FIXATION LEFT FEMUR (Left) Surgeon(s) and Role: * John Norman M.D. - Primary Inform[employer] Mdm Developer: Lesli Zuñiga L.P.N. Anesthesia Type Regional Pre-operative Diagnosis Fracture Hip Intertrochanteric Closed Initial Left (HCC) Post-operative Diagnosis Fracture Hip Intertrochanteric Closed Initial Left (HCC) Brief Operative Note Details Specimens None Drains None Estimated Blood Loss None Implants Implant Name Type Inv. Item Serial No. Press Tool Maker Lot No. LRB No. Used NL FEM TFN RT 130D [id number] - SNA - [id number] Hardware e.g. pins/screws/rods NL FEM TFN RT 130D [id number] NA [employer] [id number] Left [address] 10.5X110 - SNA - [id number] Hardware e.g. pins/screws/rods SCRW TFN FEN ST 10.5X110 NA Depuy Synthes [id number] Left 1 SCRW LCK [employer] TI T25 5X38 - [id number] Hardware e.g. pins/screws/rods SCRW LCK [employer]ILES TI T25 5X38 Depuy Synthes Left 1 John Norman M.D. LOADER documented in this encounter Miscellaneous Notes Hospital Course - Rahel Ashby M.D. - 08/13/2019 12:26 PM CST 59 y/o male who presented to the ED with left hip pain workup revealed nondisplaced left intertrochanteric trochanteric fracture. Patient also has anemia of chronic disease 08/13 s/p ORIF, trend hemoglobin. LOADER documented in this encounter Plan of Treatment Not on filedocumented as of this encounter Procedures Procedure Name Priority Date/Time Associated Diagnosis Comme nts ADULT OXYGEN Routine 08/15/2019 8:00 THERAPY AM BAG LOADER ADULT OXYGEN Routine 08/14/2019 8:01 THERAPY PM BAG LOADER ADULT OXYGEN Routine 08/14/2019 8:01 THERAPY AM BAG LOADER IRON AND TOT Routine 08/14/2019 6:00 Results for IRON-BINDING AM BAG LOADER this procedure CAPACITY, S/P are in the results section. HEMOGLOBIN, B Routine 08/14/2019 6:00 Results for AM BAG LOADER this procedure are in the results section. VITAMIN B12 Routine 08/14/2019 6:00 Results for ASSAY, S AM BAG LOADER this procedure are in the results section. ADULT OXYGEN Routine 08/13/2019 8:01 THERAPY PM BAG LOADER ADULT OXYGEN Routine 08/13/2019 9:13 THERAPY AM BAG LOADER ADULT OXYGEN Routine 08/13/2019 9:13 THERAPY AM BAG LOADER FL FLUORO LESS RAD - Routine 08/13/2019 8:43 Results f or THAN 1 HOUR (most inpatients AM BAG LOADER this proced ure and all are in the outpatients) results section. OPEN REDUCTION 08/13/2019 7:07 Fracture Hip INTERNAL AM BAG LOADER Intertrochanteric FIXATION FEMUR Closed Initial Left (HCC) CBC WITH Routine 08/13/2019 6:06 Results for DIFFERENTIAL, B AM BAG LOADER this procedu re are in the results section. GLUCOSE POCT, B Routine 08/13/2019 4:27 Results f or AM BAG LOADER this procedure are in the results section. HEMOGLOBIN A1C, Routine 08/12/2019 1:17 Results f or B PM BAG LOADER this procedure are in the results section. documented in this encounter Results (ABNORMAL) Vitamin B12 Assay (08/14/2019 6:00 AM BAG LOADER) Analysis Performed At Patho logist Time Signature Vitamin B12 >2000 (H) 232 - 1245 08/14/2019 ECLR Assay, S ng/L 3:11 PM BAG LOADER Comment: Biotin has been identified by the jyoti cabreraurer as a potential interfering substance. ??Higher concentr ations of biotin may be found in multivitamins, hair/nail supple ments, and workout supplements. ??If the result does not [facility] clinical observations, repeat testing after patient refrains fr om the use of supplements for at least 12 hours. Specimen Anatomical Collection Method Collection Time Receive d Time (Source) Location / / Volume Laterality Blood (Blood, 08/14/2019 6:00 AM 08/14/20 19 2:21 Venous) BAG LOADER PM BAG LOADER Ed L Dumont M.D. LAB BLOOD ADD-ON Performing Organization Address City/[facility]/ZIP Code Phon e Number [facility]- [address] [place] [address] [phone] [facility] [place] [address] System in [address] (ABNORMAL) Iron and Total Iron-Binding Capacity (08/14/2019 6:00 AM BAG LOADER) P athologist Signature Iron 15 (L) 50 - 150 08/14/2019 [facility] mcg/dL 6:49 AM BAG LOADER Total Iron 260 250 - 400 08/14/2019 [facility] Binding mcg/dL 6:49 AM BAG LOADER Capacity Percent 6 (L) 14 - 50 % 08/14/2019 [facility] Saturation 6:49 AM BAG LOADER Specimen Anatomical Collection Method Collection Time Receive d Time (Source) Location / / Volume Laterality Blood (Blood, 08/14/2019 6:00 AM 08/14/20 19 6:20 Venous) BAG LOADER AM BAG LOADER Ed Violette Dumont M.D. LAB BLOOD ADD-ON Performing Organization Address City/State/ZIP Code Phon e Number [facility]- [address] [place], [place] [address] [facility] [place] [address] System in [place] [address] (ABNORMAL) Hemoglobin (08/14/2019 6:00 AM BAG LOADER) P athologist Signature Hemoglobin 7.5 (L) 13.2 - 16.6 08/14/2019 [facility] g/dL 6:23 AM BAG LOADER Specimen Anatomical Collection Method Collection Time Receive d Time (Source) Location / / Volume Laterality Blood (Blood, 08/14/2019 6:00 AM 08/14/20 19 6:20 Venous) BAG LOADER AM BAG LOADER John Norman M.D. LAB BLOOD ADD-ON Performing Organization Address City/State/ZIP Code Phon e Number [facility]- [address] [place], [place] [address] [place] [facility] [address] [facility] [place] [address] System in [place] [address] [place] Fluoro Less Than 1 Hour (08/13/2019 8:43 AM BAG LOADER) Specimen (Source) Anatomical Location Collection Method / Collectio n Time Received Time / Laterality Volume Narrative [address] - 08/13/2019 8:45 AM BAG LOADER This exam does not require a radiologist review or interpretation. Please refer to the patient's medical record on this date for clinical details. John Norman M.D. IMG FLUOROSCOPY PROCEDURES Performing Organization Address City/State/ZIP Code Phon e Number [id number] [place] (ABNORMAL) CBC with Differential (08/13/2019 6:06 AM BAG LOADER) [facility] Method Time Signature Hemoglobin 8.1 (L) 13.2 - 08/13/2019 [facility] 16.6 g/dL 6:32 AM BAG LOADER Hematocrit 28.0 (L) 38.3 - 08/13/2019 [facility] 48.6 % 6:32 AM BAG LOADER Erythrocytes 3.48 (L) 4.35 - 08/13/2019 [facility] 5.65 6:32 AM BAG LOADER x10(12)/L MCV 80.5 78.2 - 08/13/2019 [facility] 97.9 fL 6:32 AM BAG LOADER RBC Distrib Width 17.9 (H) 11.8 - 08/13/2019 [facility] 14.5 % 6:32 AM BAG LOADER Platelet Count 179 135 - 317 08/13/2019 [facility] x10(9)/L 6:32 AM BAG LOADER Leukocytes 6.7 3.4 - 9.6 08/13/2019 [facility] x10(9)/L 6:32 AM BAG LOADER Neutrophils 5.06 1.56 - 08/13/2019 [facility] 6.45 6:32 AM BAG LOADER x10(9)/L Lymphocytes 0.84 (L) 0.95 - 08/13/2019 [facility] 3.07 6:32 AM BAG LOADER x10(9)/L Monocytes 0.73 0.26 - 08/13/2019 [facility] 0.81 6:32 AM BAG LOADER x10(9)/L Eosinophils 0.06 0.03 - 08/13/2019 [facility] 0.48 6:32 AM BAG LOADER x10(9)/L Basophils 0.03 0.01 - 08/13/2019 [facility] 0.08 6:32 AM BAG LOADER x10(9)/L Specimen Anatomical Collection Method Collection Time Receive d Time (Source) Location / / Volume Laterality Blood (Blood, 08/13/2019 6:06 AM 08/13/20 19 6:28 Venous) BAG LOADER AM BAG LOADER Juliette Crenshawviolet PALACIO C.N.P., FidelNEricka LAB BLOOD ADD-ON Performing Organization Address City/State/ZIP Code Phon e Number [facility]- [address] [place] [address] [address] [place] [address] System in [place] [address] Glucose, POCT (08/13/2019 4:27 AM BAG LOADER) athologist Signature Glucose, POCT, 101 70 - 140 08/13/2019 [facility] B mg/dL 4:27 AM BAG LOADER Specimen Anatomical Collection Method Collection Time Receive d Time (Source) Location / / Volume Laterality Blood 08/13/2019 4:27 AM 9 4:34 BAG LOADER AM BAG LOADER Generic [facility] LAB POCT ORDERABLES-MANUAL Performing Organization Address City/State/ZIP Code Phon e Number [facility]- [address] [place] [address] [place] [address] System in [place] [address] (ABNORMAL) Hemoglobin A1c (08/12/2019 1:17 PM BAG LOADER) athologist Signature Hemoglobin A1c, 5.7 (H) 4.2 - 5.6 08/12/2019 [facility] B % 1:43 PM BAG LOADER Comment: Hemoglobin A1c values of 5.7-6.4 percent indicate an increased risk for developing diabetes m roberto carlos. In diabetic patients, HbA1c goals should be discussed with healthcare provider. Specimen Anatomical Collection Method Collection Time Receive d Time (Source) Location / / Volume Laterality Blood (Blood, 08/12/2019 1:17 PM 08/12/20 19 1:28 Venous) BAG LOADER PM BAG LOADER John Norman M.D. LAB BLOOD ADD-ON Performing Organization Address City/State/ZIP Code Phon e Number [facility]- [address] [place], [place] [address] [address] [place] [address] System in [place] [address] documented in this encounter Visit [...] tablet 1,000 mg Given 08/16/2019 9:00 AM BAG LOADER 1,000 mg (TYLENOL) 1,000 mg, oral, 3 times daily PRN, mild pain or score 1-3 of 10, headaches, fever, Starting on Thu08/12/19 at 1403 Given 08/15/2019 6:32 PM BAG LOADER 1,000 mg Given 08/15/2019 8:46 AM BAG LOADER 1,000 mg allopurinol tablet 300 mg (ZYLOPRIM) Given 08/15/2019 6:30 AM BAG LOADER 300 mg 300 mg, oral, Daily, First dose on Thu08/13/19 at 0900 Given 08/14/2019 6:35 AM BAG LOADER 300 mg allopurinol tablet 300 mg (ZYLOPRIM) Given 08/16/2019 6:22 AM BAG LOADER 300 mg 300 mg, oral, Daily at bedtime, First dose (after last modification) on Thu08/16/19 at 0630 calcium carbonate chewable tablet Given 08/16/2019 6:0 9 AM BAG LOADER 400 mg of calcium 400 mg of calcium (TUMS) 400 mg of calcium, oral, 2 times daily, First dose on Thu08/12/19 at 2100, Doses listed are in mg of elemental calcium. Take with food. 500 mg calcium carbonate contains 200 mg of elemental calcium. Given 08/15/2019 6:32 AM BAG LOADER 400 mg of calcium Given 08/14/2019 5:25 PM BAG LOADER 400 mg of calcium calcium carbonate chewable tablet Given 08/15/2019 5:4 3 PM BAG LOADER 400 mg of calcium 400 mg of calcium (TUMS) 400 mg of calcium, oral, Every 2 hour PRN, heartburn, indigestion, Starting on Thu08/12/19 at 1413, Doses listed are in mg of elemental calcium. Take with food. 500 mg calcium carbonate contains 200 mg of elemental calcium. Given 08/13/2019 5:35 PM BAG LOADER 400 mg of calcium ceFAZolin in NaCl 0.9 % IVPB 2 g New Bag 08/13/2019 11:59 PM BAG LOADER 2 g 220 mL/hr (ANCEF) 2 g, intravenous, at 220 mL/hr, Administer over 30 Minutes, Every 8 hours, First dose on 08/13/19 at 1530, For 2 doses, Start within 8 hours of last IV dose. premix bag, Drug Monitoring Program: Pharmacist to adjust medication dosing based on indication and drug clearance factors., Indications: Prophylaxis, surgical New Bag 08/13/2019 4:07 PM BAG LOADER 2 g 220 mL/hr ferrous sulfate tablet 65 mg of iron 65 mg of iron, oral, Daily, First dose o n 08/14/19 at 1315, 325 mg contains 65 mg of elemental iron. furosemide tablet 40 mg (LASIX) Given 08/15/2019 5:43 PM BAG LOADER 40 mg 40 mg, oral, Daily before dinner, First dose on Thu08/12/19 at 1600 Given 08/14/2019 5:25 PM BAG LOADER 40 mg Given 08/13/2019 5:33 PM BAG LOADER 40 mg HYDROmorphone injection 0.5 mg (DILAUDID ) Given 08/14/2019 8:17 PM BAG LOADER 0.5 mg 0.5 mg, intravenous, Every 5 min PRN, moderate pain or score 4-6 of 10, severe pain or score 7-10 of 10, Starting on 08/13/19 at 0912, For 4 doses, PACU (only), Up to maximum total dose of 2 mg Given 08/14/2019 9:03 AM BAG LOADER 0.5 mg HYDROmorphone injection 0.5 mg (DILAUDID ) Given 08/13/2019 8:06 PM BAG LOADER 0.5 mg 0.5 mg, intravenous, Every 2 hour PRN, severe pain or score 7-10 of 10, Starting on 08/13/19 at 0942, For 2 doses, May administer if pain is greater than 7 after scheduled and PRN regimen exhausted. If pain remains greater than 7, notify primary service. Given 08/13/2019 1:31 PM BAG LOADER 0.5 mg morphine injection 2 mg Given 08/15/2019 8:45 AM BAG LOADER 2 mg 2 mg, intravenous, Every 2 hour PRN, severe pain or score 7-10 of 10, breakthrough pain, Starting on 08/12/19 at 1413, For breakthrough pain unrelieved 30 minutes after PRN oral pain medication is used or if unable to take oral pain medication. NaCl 0.9% infusion Restarted 08/13/2019 9:28 AM BAG LOADER 100 mL/hr 100 mL/hr 100 mL/hr, intravenous, Continuous, Starting on 08/13/19 at 0000 New Bag 08/12/2019 11:47 PM BAG LOADER 100 mL/hr 100 mL/hr NaCl 0.9% infusion Rate/Dose Verify 08/14/2019 12:09 AM BAG LOADER 50 mL/hr 50 mL/hr 50 mL/hr, intravenous, Continuous, Starting on 08/13/19 at 0945 New Bag 08/13/2019 8:05 PM BAG LOADER 50 mL/hr 50 mL/hr Continued from OR 08/13/2019 10:09 AM BAG LOADER 50 mL/hr 50 mL/hr oxyCODONE IR tablet 10 mg (ROXICODONE) Given 08/16/2019 9:00 AM BAG LOADER 10 mg 10 mg, oral, Every 4 hours PRN, severe pain or score 7-10 of 10, Starting on 08/13/19 at 0942, Second line therapy. If patient is greater than 7 after 2 hours, call service for new order. Given 08/15/2019 6:32 PM BAG LOADER 10 mg Given 08/15/2019 1:31 PM BAG LOADER 10 mg oxyCODONE IR tablet 5 mg (ROXICODONE) 5 mg, oral, Every 4 hours PRN, moderate pain or score 4-6 of 10, Starting on 08/13/19 at 0942, Second line therapy pantoprazole DR tablet 40 mg (PROTONIX) Given 08/16/2019 6:09 AM BAG LOADER 40 mg 40 mg, oral, Daily before breakfast, First dose on 08/13/19 at 0700, pantoprazole 40 mg oral daily was interchanged for omeprazole 20 or 40 mg oral daily Swallow whole. Do NOT crush, chew, or split tablet. Given 08/15/2019 6:30 AM BAG LOADER 40 mg Given 08/14/2019 6:36 AM BAG LOADER 40 mg pediatric iyhvyrxpmbwg-xdto-qynxufus Given 08/14/2019 9:02 AM CS T 2 tablets chewable tablet 2 tablet (FLINTSTONES COMPLETE) 2 tablet, oral, Daily, First dose on 08/13/19 at 0900 pediatric ushosgtrevih-lttr-uinnalmx Given 08/14/2019 11:[address] 2 tablets chewable tablet 2 tablet (FLINTSTONES COMPLETE) 2 tablet, oral, Once, On 08/14/19 at 1145, For 1 dose, For total AM dose of 4 tablets pediatric oagsguhiqkrn-vcud-fkndtzkc Given 08/16/2019 6:09 AM CS T 4 tablets chewable tablet 4 tablet (FLINTSTONES COMPLETE) 4 tablet, oral, Daily, First dose (after last modification) on 08/15/19 at 0630 Given 08/15/2019 6:32 AM BAG LOADER 4 tablets sodium chloride 0.9 % injection 10 mL Given 08/15/2019 8:46 AM BAG LOADER 10 mL 10 mL, intravenous, As needed, line care, Starting on Thu08/12/19 at 1410, Peripheral Intravenous Catheter and Rapid Infusion Catheter, prior to blood sampling, post blood transfusion or post blood sampling sodium chloride 0.9 % injection 3 mL Given 08/15/2019 10:09 PM BAG LOADER 3 mL 3 mL, intravenous, Every 12 hours scheduled, First dose on Thu08/12/19 at 2100, Peripheral Intravenous Catheter and Rapid Infusion Catheter, when no infusion to maintain patency Given 08/14/2019 8:18 PM BAG LOADER 3 mL Given 08/12/2019 11:47 PM BAG LOADER 3 mL tamsulosin 24 hr capsule 0.4 mg (FLOMAX) Given 08/15/2019 5:43 PM BAG LOADER 0.4 mg 0.4 mg, oral, Daily, First dose on 08/13/19 at 0900, Swallow whole. Do NOT crush, chew or open capsule. Given 08/14/2019 9:02 AM BAG LOADER 0.4 mg tamsulosin 24 hr capsule 0.4 [...] Recently Administered Medications Times are shown in BAG LOADER. Scheduled Medication Order 08/14/2019 08/15/2019 08/16/2019 allopurinol [...] NOT crush, chew, or split tablet. pediatric bnjscdbairvf-hlhl-yyzfmkkz shaina wable tablet 2 tablet (FLINTSTONES COMPLETE) (CANCELED) 0902 (Given - Provider: Desirae Veras R.N.) 2 tablet, oral, Daily, First dose on 08/13/19 at 0900 pediatric thsxovowmara-eeqm-vfidlbpt shaina wable tablet 2 tablet (FLINTSTONES COMPLETE) (COMPLETED) 1144 (Given - Provider: Desirae Veras R.N.) 2 tablet, oral, Once, On 08/14/19 at 1145, For 1 dose, For total AM dose of 4 tablets pediatric tlqnftfjgeoe-qfqv-bwyqlqhl shaina wable tablet 4 tablet (FLINTSTONES COMPLETE) [...] 1,000 mg (TYLENOL) 0902 (Given - Provider: Dseirae Veras R.N.)2017 (Given - Provider: Ella Milan [...] mg of calcium, oral, Every 2 hour WA N, heartburn, indigestion, Starting on Thu08/12/19 at [...] documented as of this encounter Care Teams Under Presser Relationship Specialty Start Date End Date Cintia Cobb M.D. PCP - General 02/19/17 02/20/[address] [place] [phone] documented as of this encounter
--- OUTSIDE RECORDS SUMMARY | 2022-08-12 09:20 | XMS_ITS | Encounter Summary ---
:1960 Author Organization [facility] Address [address] [place] [address] Care Team Providers Name Role Phone Cintia Cobb M.D. Primary Care Provider [phone] Reason for Visit Auth/Cert Specialty Diagnoses / Procedures Referred By Contact Refer red To Contact Diagnoses Pain Joint Fracture Hip Closed Initial Left (HCC) Hip Fracture Procedures n/a Referral ID Status Reason Start Date Expiration Date Visits Requ ested Visits Authorized [id number] 1 1 Encounter Details Date Type Department Care Team Description 08/13/2019 Anesthesia Event [facility] OR Billy Luna, Suraj SAL WAN COMMUNICATIONS SUPERVISOR, TREE EXPERT [place], [place] [address] [facility] [address] [place] [address] Anesthesia Record Procedure Summary Procedure Name Responsible Anesthesia Start Anesthesia Stop Time Anesthesiologist Time OPEN REDUCTION Billy Luna APRN, 08/13/19 0707 08/13 0901 INTERNAL FIXATION TREE EXPERT LEFT FEMUR (Left: Hip) Events Date Time [...] h andoff to the receiving staff during [facility] ch we 1. Identified the patient [...] 1 1418 by Left; Eric Lakhani R.N. [facility] ic-Backgroun chapis; 05/28/21 d, Scheduling (Removed by [...] Procedure Summary Date: 08/13/19 Room / Location: [address] 4[address] / [facility] - GI Anesthesia Start: 706 Anesthesia Stop: [...] Post Op nausea/vomiting: none Hydration status: euvolemic ONAL CARE ATTENDANT Anesthesia Procedure Notes - Billy Luna CRNA [...] completed successfully: successful procedure Other complications: none ONAL CARE ATTENDANT Anesthesia Preprocedure Evaluation - Billy Luna CRNA, R.N. - 08/13/2019 6:16 AM CST Preprocedure Anesthesia & H&P Assessment Procedure Summary Date/Time: 08/13/19 0700 Procedure: OPEN REDUCTION INTERNAL FIXATION LEFT FEMUR (Left ) Diagnosis: Fracture Hip Intertrochanteric Closed Initial Left (HCC) [S72.142A] Pre-op diagnosis: Fracture Hip Intertrochanteric Closed Initial Left (HCC) [S72.142A] Location: [address] 3622 / [facility] - GI Surgeon: John Norman M.D. Pertinent [...] with patient /legal guardian or through an endoscopy registered nurse. Risks/Benefits/Alternatives of Blood transfusion discussed with patient [...] due to failed or unsuccessful spinal placement. ONAL CARE ATTENDANT documented in this encounter Plan of Treatment Not on filedocumented as of this encounter Procedures Procedure Name Priority Date/Time Associated Comments Diagnosis ANESTHESIA REGIONAL Routine 08/13/2019 7:40 AM Re sults for this BLOCK PERSONAL CARE ATTENDANT procedure are i n the results section. documented in this encounter Results Regional Block (08/13/2019 7:40 AM PERSONAL CARE ATTENDANT) Narrative Billy Luna CRNA RPiliN. - 2018 7:40 AM PERSONAL CARE ATTENDANT Billy Luna CRNA, R.N. ? 08/13/2019 ??7:41 [...] % (5 mg/mL) Given 08/13/2019 7:24 AM PERSONAL CARE ATTENDANT 2.4 mL injection (MARCAINE) As needed, Starting on 08/13/19 at 0724, Anesthesia Intra-op ceFAZolin in NaCl 0.9 % IVPB 2 g (ANCEF) Given 08/13/2019 7:27 AM PERSONAL CARE ATTENDANT 2 g 2 g (rounded from 2.0825 [...] fentaNYL injection (SUBLIMAZE) Given 08/13/2019 7:13 AM PERSONAL CARE ATTENDANT 50 mcg intravenous, As needed, Starting on 08/13/19 at 0707, Anesthesia Intra-op Given 08/13/2019 7:07 AM PERSONAL CARE ATTENDANT 50 mcg lactated ringers New Bag 08/13/2019 7:07 AM PERSONAL CARE ATTENDANT intravenous, Continuous Infusion: Per Instructions PRN, Starting on 08/13/19 at 0707, Anesthesia Intra-op midazolam (PF) injection (VERSED) Given 08/13/2019 7:13 AM PERSONAL CARE ATTENDANT 1 mg intravenous, As needed, Starting on 08/13/19 at 0707, Anesthesia Intra-op Given 08/13/2019 7:07 AM PERSONAL CARE ATTENDANT 1 mg ondansetron (PF) injection (ZOFRAN) Given 08/13/2019 7:35 AM PERSONAL CARE ATTENDANT 4 mg As needed, Starting on 08/13/19 at 0735, Anesthesia Intra-op propofol 10 mg/mL infusion Rate/Dose 08/13/2019 8:34 25 mcg/kg/min 1 2.2 mL/hr (DIPRIVAN) Change AM PERSONAL CARE ATTENDANT intravenous, Continuous Infusion: Per Instructions PRN, Starting on 08/13/19 at 0730, Anesthesia Intra-op New Bag 08/13/2019 7:30 AM PERSONAL CARE ATTENDANT 50 mcg/kg/min 24.3 mL/hr documented in this encounter Additional Health Concerns Assessment Noted Time PHQ-9 Depression Total Score: 18 02/14/2013 9:53 AM CD T documented as of this encounter Care Teams Field Marketing Team Leader Relationship Specialty Start Date End Date Cintia Cobb M.D. PCP - General 02/19/17 02/20/[id number] [phone] documented as of this encounter
--- OUTSIDE RECORDS SUMMARY | 2022-08-12 09:20 | XMS_ITS | Encounter Summary ---
:1960 Author Organization [facility] Address [address] [place] [address] Care Team Providers Name Role Phone Cintia Cobb M.D. Primary Care Provider [phone] Encounter Details Date Type Department Care Team Description 09/12/2019 Orders Only Department of [facility] Angélica Cobb Medicine, Jose Daniel Piper M.D. Clinic, in [address] [address] [place], [place] [phone] (W ork) [address] [phone] Social History Tobacco Use Types Packs/Day Years [...] documented as of this encounter Care Teams Wet Trimmer Relationship Specialty Start Date End Date Cintia Cobb M.D. PCP - General 02/19/17 02/20/[address] [place] [phone] documented as of this encounter
--- OUTSIDE RECORDS SUMMARY | 2022-08-12 09:21 | XMS_ITS | Encounter Summary ---
:1960 Author Organization [facility] Address [address] [place] [address] Care Team Providers Name Role Phone Cintia Cobb M.D. Primary Care Provider [phone] Encounter Details Date Type Department Care Team Description 06/03/2018 Orders Only Department of [facility] Terri Cobbbetes Mellitus Type MedicineJose Daniel M.D. 2 (HCC) (Primary Dx) [facility], in [address] [place] [address] [place], [place] [phone] (W ork) [address] [phone] Social History Tobacco Use Types Packs/Day Years [...] as of this encounter Care Teams Paper Machine Tender Relationship Specialty Start Date End Date Cintia Cobb M.D. PCP - General 02/19/17 02/20/[address] [place] [phone] documented as of this encounter
--- OUTSIDE RECORDS SUMMARY | 2022-08-12 09:21 | XMS_ITS | Encounter Summary ---
:1960 Author Organization [facility] Address [address] [place] [address] Care Team Providers Name Role Phone Cintia Cobb M.D. Primary Care Provider [phone] Encounter Details Date Type Department Care Team Description 05/27/2019 Clinical Communication [facility], Jose Daniel Piper M.D. [address] [address] [place], [place] [phone] (Work) [phone] Social History Tobacco Use Types Packs/Day Years [...] done. Please follow up with her at [phone]. Thank you documented in this encounter Plan of Treatment Not on filedocumented as of this encounter Results (ABNORMAL) Vitamin B12 Assay (12/18/2020 7:49 PM CDT) [facility] At [facility] Time Signature Vitamin B12 >2000 (H) 232 - 1245 12/19/2020 ECLR Assay, S ng/L 4:15 PM CDT Comment: Biotin has been identified by the [facility] as a potential interfering substance. ??Higher concentr ations of biotin may be found in multivitamins, hair/nail supple ments, and workout supplements. ??If the result does not ma [facility] clinical observations, repeat testing after patient refrains fr om the use of supplements for at least 12 hours. Specimen Anatomical Collection Method Collection Time Receive d Time (Source) Location / / Volume Laterality Blood (Blood, 12/18/2020 7:49 PM 12/20/19 2:59 Venous) CDT PM CDT Cintia Copeland M.D. 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 PCP - General 02/19/17 02/20/[id number] [phone] documented as of this encounter
--- OUTSIDE RECORDS SUMMARY | 2022-08-12 09:21 | XMS_ITS | Encounter Summary ---
:1960 Author Organization [facility] Address [address] [place] [address] Care Team Providers Name Role Phone Cintia Cobb M.D. Primary Care Provider Encounter Details Date Type Department Care Team Description 12/16/2018 Orders Only Department of [facility] Bhumi Bran, Therapy in [place], M.S.N., [place] [address] [facility] [address] [place] [address] [phone] Social History Tobacco Use Types Packs/Day Years [...] documented as of this encounter Care Teams Button Bradder Relationship Specialty Start Date End Date Cintia Cobb M.D. PCP - General 02/19/17 02/20/[address] [place] [phone] documented as of this encounter
--- OUTSIDE RECORDS SUMMARY | 2022-08-12 09:21 | XMS_ITS | Encounter Summary ---
:1960 Author Organization [facility] Address [address] [place] [address] Care Team Providers Name Role Phone Cintia Cobb M.D. Primary Care Provider [phone] Encounter Details Date Type Department Care Team Description 08/02/2019 Orders Only Department of [facility] Terri Cobb (Primary Dx) Medicine, Jose Daniel Piper M.D. [facility] in [address] [place] [address] [place], [place] [phone] (W ork) [address] [phone] Social History Tobacco Use Types Packs/Day Years [...] documented as of this encounter Care Teams Competitive Intelligence Analyst Relationship Specialty Start Date End Date Cintia Cobb M.D. PCP - General 02/19/17 02/20/[address] [place] [phone] documented as of this encounter
--- OUTSIDE RECORDS SUMMARY | 2022-08-12 09:21 | XMS_ITS | Encounter Summary ---
:1960 Author Organization [facility] Address [address] [place] [address] Care Team Providers Name Role Phone Cintia Cobb M.D. Primary Care Provider [phone] Reason for Visit Reason Comments Post Hospital Follow-up Outpatient (Routine) - Closed Specialty Diagnoses / Procedures Referred By Contact Refer red To Contact Diagnoses Hemorrhage Gastrointestinal Luis Varghese, [facility] HAKEEM, C.N.P. [address] [place] [address] Referral ID Status Reason Start Date Expiration Date Visits Requ ested Visits Authorized [id number] Closed 04/15/2018 04/15/2019 1 1 Encounter Details Date Type Department Care Team Description 04/21/2018 Office Visit Department of [facility] Tanja Munoz, P.A.-C. [address] [place] [address] Hemorrhage Gastrointestinal (Primary Dx) ; Medicine, Cintia Bella M.D. [address] [place] [phone] Anemia Of Chronic Disease; [facility], in Weakness Le g Left; [place]; [place] Diabetes Mellitus Type 2 Wit h Diabetic Neuropathy (HCC); [address] [place] [address] [place] [address] Social History Tobacco Use Types Packs/Day Years [...] He was admitted to the hospital in [place] and had an EGD showing an ulcer. [...] possible left L5 radiculopathy. Cintia S Song [place] M.D. IMG CT PROCEDURES documented in this [...] documented as of this encounter Care Teams Shoelace Tipping Machine Operator Relationship Specialty Start Date End Date Cintia Cobb M.D. PCP - General 02/19/17 02/20/[address] [place] [phone] documented as of this encounter
--- OUTSIDE RECORDS SUMMARY | 2022-08-12 09:21 | XMS_ITS | Encounter Summary ---
:1960 Author Organization [facility] Address [address] [place] [address] Care Team Providers Name Role Phone Cintia Cobb M.D. Primary Care Provider [phone] Reason for Visit Reason Onset Date Comments CT scan disc 04/30/2018 Encounter Details Date Type Department Care Team Description 04/30/2018 Clinical Communication Department of [facility] Fernanda Buckner CT scan disc Medicine, Jose Daniel Lindsay R.N. [address] [address] [place], [place] [phone] (Work) [phone] Social History Tobacco Use Types Packs/Day Years [...] Disc of 04/21/18 CT scan taken from first front ventilator to Med/ pe teacherTiffany, per pt request as he cannot get to the first front ventilator before noon tomorrow (Thursday). documented in this encounter Plan of Treatment Not on filedocumented as of this encounter Visit Diagnoses Not on filedocumented in this encounter Additional Health Concerns Assessment Noted Time PHQ-9 Depression Total Score: 18 02/14/2013 9:53 AM CD T documented as of this encounter Care Teams Material Planning Analyst Relationship Specialty Start Date End Date Cintia Cobb M.D. PCP - General 02/19/17 02/20/[address] [place] [phone] documented as of this encounter
--- OUTSIDE RECORDS SUMMARY | 2022-08-12 09:21 | XMS_ITS | Encounter Summary ---
:1960 Author Organization [facility] Address [address] [place] [address] Care Team Providers Name Role Phone Cintia Cobb M.D. Primary Care Provider [phone] Reason for Visit MRI/CAT/PET Scan (Routine) - Closed Specialty Diagnoses / Procedures Referred By Contact Refer red To Contact Radiology Diagnoses Pain Low Back Unspecified Cintia Cobb [facility] Region Procedures CT Lumbar Spine without IV Contrast AR CT LUMBAR SPINE WO SINGHRST HC CT LUMBAR SPINE WO SINGHRST AR CT LUMBAR SPINE WO SAMARA Piper M.D. [address] [place] [phone] Referral ID Status Reason Start Date Expiration Date Visits Requ ested Visits Authorized [id number] Closed 04/07/2018 04/07/2019 1 1 Encounter Details Date Type Department Care Team Description 04/21/2018 Hospital Encounter Department of Radiology [place] [facility], in Cintia Arellano M.D. [address] [phone] Social History Tobacco Use Types Packs/Day Years [...] documented as of this encounter Care Teams Contract Associate Relationship Specialty Start Date End Date Cintia Cobb M.D. PCP - General 02/19/17 02/20/[address] [place] [phone] documented as of this encounter
--- OUTSIDE RECORDS SUMMARY | 2022-08-12 09:21 | XMS_ITS | Encounter Summary ---
:1960 Author Organization [facility] Address [address] [place] [address] Care Team Providers Name Role Phone Cintia Cobb M.D. Primary Care Provider [phone] Reason for Visit Reason Comments Hip Pain 59 year old male admits . Pt was chasing his truck and slipped on the ice . Pt was unable to get up comp laints of left hip pain Encounter Details Date Type Department Care Team Description 08/12/2019 Emergency [facility] Sancho Wise Hip Closed Department (Skip) Keely ALLEN, Initial Left (HCC) [id number] [facility] (Primary Dx) [place], [place] [address] [address] [place] [address] Social History Tobacco Use Types Packs/Day Years Used Date Smoking Tobacco: Never Smokeless Tobacco: Never Alcohol Use Standard Drinks/Week Comments No 0 (1 standard drink = 0.6 oz pure alcoho l) Sex Assigned at Date Recorded Not on file documented as of this encounter Last Filed Vital Signs Vital Sign Reading Time Taken Comments Blood Pressure 130/71 08/12/2019 11:46 AM APPLE PEELER OPERATOR Pulse 69 08/12/2019 11:46 AM APPLE PEELER OPERATOR Temperature 37.1 ??C (98.8 ??F) 08/12/2019 11:46 AM APPLE PEELER OPERATOR Respiratory Rate 16 08/12/2019 8:57 AM APPLE PEELER OPERATOR Oxygen Saturation 100% 08/12/2019 11:46 AM APPLE PEELER OPERATOR Inhaled Oxygen Concentration - - Weight 83.3 kg (183 lb 10.3 oz) 08/12/2019 8:51 AM APPLE PEELER OPERATOR Height 182.9 cm (6') 08/12/2019 8:51 AM APPLE PEELER OPERATOR Body Mass Index 24.91 08/12/2019 8:51 AM APPLE PEELER OPERATOR documented in this encounter Medications at Time [...] X-ray demonstrates nondisplaced intertrochanteric fracture. Orthopedics in [place] consulted. Orthopedics and anesthesia accept the patient for transfer. Hospitalist and [facility] accepts for transfer. Differential Diagnoses Conditions include, [...] Intertrochanteric fracture seen on x-ray, orthopedics and [place] called Final Diagnoses: as of Aug 12 1036 Fracture Hip Closed Initial Left (HCC) Sancho Wise III, M.D. (Skip), M.P.H. 08/12/191035 E PEELER OPERATOR Mehreen Mascorro R.N. 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 Pt chased after truck. Pt slipped on ice from a standing position injuring left hip, denies all other injury Mehreen Mascorro R.N. 08/12/19 0840 E PEELER OPERATOR documented in this encounter Plan of Treatment Not on filedocumented as of this encounter Procedures Procedure Name Priority Date/Time Associated Comments Diagnosis PROTHROMBIN TIME STAT 08/12/2019 9:55 Results for this (PT), P AM APPLE PEELER OPERATOR procedure are i n the results section. CBC WITH STAT 08/12/2019 9:55 Results for this DIFFERENTIAL, B AM APPLE PEELER OPERATOR procedure ar e in the results section. BASIC METABOLIC STAT 08/12/2019 9:55 Results f or this PANEL, S/P AM APPLE PEELER OPERATOR procedure are i n the results section. ECG STAT 08/12/2019 9:24 Results for this AM APPLE PEELER OPERATOR procedure are i n the results section. DX HIP AND PELVIS RAD - Semiurgent 08/12/2019 8:51 Res ults for this LEFT 2-3 VIEWS (Fast; most ED AM APPLE PEELER OPERATOR procedure a re in patients; some the results inpatients) section. documented in this encounter Results Prothrombin Time (PT) (08/12/2019 9:55 AM APPLE PEELER OPERATOR) P athologist Signature Prothrombin 8.8 8.8 - 11.9 08/12/2019 CNFL Time, P sec 10:09 AM APPLE PEELER OPERATOR INR 0.9 0.9 - 1.2 08/12/2019 CNFL 10:09 AM APPLE PEELER OPERATOR Comment: Standard intensity warfarin therapeutic range: 2.0 to 3.0 High intensity warfarin therapeutic rang e: 2.5 to 3.5 Specimen Anatomical Collection Method Collection Time Receive d Time (Source) Location / / Volume Laterality Blood (Blood, 08/12/2019 9:55 AM 08/12/20 9:55 Venous) APPLE PEELER OPERATOR AM APPLE PEELER OPERATOR Sancho (Skip) Frandy ALLEN M.D., M.P.H. LAB BLOOD ADD-ON Performing Organization Address City/State/ZIP Code Phon e Number [facility]- [address] [place] [address] [place] [address] [place] [address] System in [place] [address] Bl (ABNORMAL) Basic Metabolic Panel (08/12/2019 9:55 AM APPLE PEELER OPERATOR) P athologist Signature Potassium, P 4.6 3.6 - 5.2 08/12/2019 CNFL mmol/L 10:19 AM APPLE PEELER OPERATOR Sodium, P 139 135 - 145 08/12/2019 [facility] mmol/L 10:19 AM APPLE PEELER OPERATOR Chloride, P 100 98 - 107 08/12/2019 CNFL mmol/L 10:13 AM APPLE PEELER OPERATOR Bicarbonate, P 27 22 - 29 08/12/2019 [facility] mmol/L 10:13 AM APPLE PEELER OPERATOR Anion Gap, P 12 7 - 15 08/12/2019 CNFL 10:19 AM APPLE PEELER OPERATOR BUN (Blood Urea 26 (H) 8 - 24 08/12/2019 CN[facility] Nitrogen), P mg/dL 10:13 AM APPLE PEELER OPERATOR Creatinine 1.06 0.74 - 08/12/2019 CNFL 1.35 mg/dL 10:13 AM APPLE PEELER OPERATOR eGFR-Black/Afri 87 >=60 08/12/2019 CNFL can Libyan mL/min/BSA 10:13 AM APPLE PEELER OPERATOR Comment: ----ADDITIONAL INFORMATION---- Estimated GFR calculated using the 2009 CKD_EPI creatinine equation. eGFR Non-Black/ 75 >=60 mL/min/BSA 08/12/2019 10:13 AM APPLE PEELER OPERATOR CNFL Comment: ----ADDITIONAL INFORMATION---- Estimated GFR calculated using the 2009 CKD_EPI creatinine equation. Calcium, Total, P 9.2 8.8 - 10.2 mg/dL 08/12/2019 10:1 3 AM APPLE PEELER OPERATOR CNFL Glucose, P 131 70 - 140 mg/dL 08/12/2019 10:13 AM APPLE PEELER OPERATOR CNFL Specimen Anatomical Collection Method Collection Time Receive d Time (Source) Location / / Volume Laterality Blood (Blood, 08/12/2019 9:55 AM 08/12/20 9:55 Venous) APPLE PEELER OPERATOR AM APPLE PEELER OPERATOR Sancho (Skip) Frandy ALLEN M.D., M.P.H. LAB BLOOD ADD-ON Performing Organization Address City/State/ZIP Code Phon e Number [facility]- [address] [place] [address] [place] [address] [address] (ABNORMAL) CBC with Differential, Blood (08/12/2019 9:55 AM APPLE PEELER OPERATOR) [facility] gist Method Time Signature Hemoglobin 8.3 (L) 13.2 - 08/12/2019 CNFL 16.6 g/dL 10:03 AM APPLE PEELER OPERATOR Hematocrit 28.1 (L) 38.3 - 08/12/2019 CNFL 48.6 % 10:03 AM APPLE PEELER OPERATOR Erythrocytes 3.51 (L) 4.35 - 08/12/2019 CNFL 5.65 10:03 AM APPLE PEELER OPERATOR x10(12)/L MCV 80.1 78.2 - 08/12/2019 CNFL 97.9 fL 10:03 AM APPLE PEELER OPERATOR RBC Distrib Width 17.7 (H) 11.8 - 08/12/2019 CNFL 14.5 % 10:03 AM APPLE PEELER OPERATOR Platelet Count 225 135 - 317 08/12/2019 CNFL x10(9)/L 10:03 AM APPLE PEELER OPERATOR Leukocytes 5.8 3.4 - 9.6 08/12/2019 CNFL x10(9)/L 10:03 AM APPLE PEELER OPERATOR Neutrophils 4.39 1.56 - 08/12/2019 CNFL 6.45 10:03 AM APPLE PEELER OPERATOR x10(9)/L Lymphocytes 0.89 (L) 0.95 - 08/12/2019 CNFL 3.07 10:03 AM APPLE PEELER OPERATOR x10(9)/L Monocytes 0.45 0.26 - 08/12/2019 CNFL 0.81 10:03 AM APPLE PEELER OPERATOR x10(9)/L Eosinophils 0.07 0.03 - 08/12/2019 CNFL 0.48 10:03 AM APPLE PEELER OPERATOR x10(9)/L Basophils 0.03 0.01 - 08/12/2019 CNFL 0.08 10:03 AM APPLE PEELER OPERATOR x10(9)/L Specimen Anatomical Collection Method Collection Time Receive d Time (Source) Location / / Volume Laterality Blood (Blood, 08/12/2019 9:55 AM 08/12/20 9:55 Venous) APPLE PEELER OPERATOR AM APPLE PEELER OPERATOR Authorizing Provider Result Thom Higgins) Frandy ALLEN M.D., M.P.H. LAB BLOOD ADD-ON Performing Organization Address City/State/ZIP Code Phon e Number [facility]- [address] [place] [address] [place] [address] [place] [address] [address] ECG 12 Lead (08/12/2019 9:24 AM APPLE PEELER OPERATOR) P athologist Signature Ventricular Rate 63 BPM MUSE ECG/Min QRSD Interval 174 ms MUSE QT Interval 460 ms MUSE QTC Interval 470 ms MUSE R [place] -84 degrees MUSE T Wave [place] 81 degrees MUSE Specimen Anatomical Collection Method Collection Time Receive d Time (Source) Location / / Volume Laterality 08/12/2019 9:24 AM 9 9:28 APPLE PEELER OPERATOR AM APPLE PEELER OPERATOR Impressions MUSE - 08/12/2019 9:28 AM APPLE PEELER OPERATOR Dual chamber electronic pacemaker Sinus rhythm When [...] Pelvis Left 2-3 Views (08/12/2019 8:51 AM APPLE PEELER OPERATOR) Anatomical Region Laterality Modality Lower Extremity, Pelvis, Hip, Musculoskeletal RST LOS, Left Digital Radiography Musculoskeletal ARZ LOS, Muskuloskeletal FLA LOS Specimen (Source) Anatomical Collection Method Collection Time Re ceived Time Location / / Volume Laterality 08/12/2019 8:53 AM APPLE PEELER OPERATOR Impressions 08/12/2019 8:58 AM APPLE PEELER OPERATOR Nondisplaced left intertrochanteric trochanteric fracture. Femoral acetabular joints are congruent. Mild to moderate degenerative changes at both hips. Lumbosacral spondylosis. No suspic ious osseous lesion. Narrative 08/12/2019 8:58 AM APPLE PEELER OPERATOR EXAM: DX HIP AND PELVIS LEFT 2-3 [...] as of this encounter Care Teams Production Expert Relationship Specialty Start Date End Date Cintia Cobb M.D. PCP - General 02/19/17 02/20/[address] [place] [phone] documented as of this encounter
--- OUTSIDE RECORDS SUMMARY | 2022-08-12 09:21 | XMS_ITS | Encounter Summary ---
:1960 Author Organization [facility] Address [address] [place] [address] Care Team Providers Name Role Phone Cintia Bullock M.D. 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 Anemia Iron Deficiency Blood Loss Chroni c; [facility], in [address] [place] [address] Frequenc y Urinary; [facility] Hypertension Essential Primary; [place], [place] Herniated Disc Lumbar; [address] [place] [phone] Screening Examination Prostate Cancer; [place], [place] [phone] Diarrhea [phone] (Work) [phone] Social History Tobacco Use Types Packs/Day Years Used Date Smoking Tobacco: Never Smokeless Tobacco: Never Alcohol Use Standard Drinks/Week Comments No 0 (1 standard drink = 0.6 oz pure alcoho l) Sex Assigned at Date Recorded Not on file documented as of this encounter Last Filed Vital Signs Vital Sign Reading Time Taken Comments Blood Pressure 134/85 09/28/2018 6:15 PM INTELLECTUAL PROPERTY COUNSEL Pulse 80 09/28/2018 6:15 PM INTELLECTUAL PROPERTY COUNSEL Temperature - - Respiratory Rate - - Oxygen Saturation 100% 09/28/2018 6:15 PM INTELLECTUAL PROPERTY COUNSEL Inhaled Oxygen Concentration - - Weight - [...] Cintia Copeland M.D. . 09/30/2018. 1:26 PM. LLECTUAL PROPERTY COUNSEL Xochitl Hackett L.P.N. - 09/28/2018 6:45 PM CST Client has question about omeprazole script. is unclear on what he's speaking of. Ed believes they want to cover four months. Instructed to find out what problem is. LLECTUAL PROPERTY COUNSEL documented in this encounter Miscellaneous Notes Addendum Note - Cintia Bullock M.D. - 09/28/2018 6:45 PM INTELLECTUAL PROPERTY COUNSEL Addended by: CINTIA BULLOCK on: 08/02/2019 06:53 PM Modules accepted: Orders LLECTUAL PROPERTY COUNSEL documented in this encounter Plan of Treatment Not on filedocumented as of this encounter Procedures Procedure Name Priority Date/Time Associated Diagnosis Comme nts PROSTATE-SPECIFIC AG Routine 09/28/2018 7:08 PM Screening R esults for this (PSA) SCRN, S INTELLECTUAL PROPERTY COUNSEL Examination Prostate proced ure are in Cancer the results section. HEMOGLOBIN, B Routine 09/28/2018 7:08 PM Anemia Iron Results for this INTELLECTUAL PROPERTY COUNSEL Deficiency Blood procedure a re in Loss Chronic the results section. HEMOGLOBIN A1C, B Routine 09/28/2018 7:08 PM Diabetes Mellitus Results for this INTELLECTUAL PROPERTY COUNSEL Type 2 With Diabetic procedu re are in Neuropathy (HCC) the results section. documented in this encounter Results PSA (Prostate-Specific Antigen) Screen (09/28/2018 7:08 PM INTELLECTUAL PROPERTY COUNSEL) P athologist Signature Prostate-Specif 2.0 <=4.5 09/29/2018 [facility] ic Ag ng/mL 1:30 PM INTELLECTUAL PROPERTY COUNSEL [facility] Comment: Biotin [...] (Blood, 09/28/2018 7:08 PM 09/29/19 19 Venous) INTELLECTUAL PROPERTY COUNSEL 12:48 PM INTELLECTUAL PROPERTY COUNSEL Cintia Copeland M.D. LAB BLOOD ADD-ON Performing Organization Address City/State/ZIP Code Phon e Number [facility] [address] [place] [address] [place] (ABNORMAL) Hemoglobin (09/28/2018 7:08 PM INTELLECTUAL PROPERTY COUNSEL) athologist Signature Hemoglobin 7.8 (L) 13.2 - 16.6 09/28/2018 [facility] g/dL 7:30 PM [facility] Specimen Anatomical Collection Method Collection Time Receive d Time (Source) Location / / Volume Laterality Blood (Blood, 09/28/2018 7:08 PM 09/28/19 19 7:27 Venous) INTELLECTUAL PROPERTY COUNSEL PM INTELLECTUAL PROPERTY COUNSEL Cintia Copeland M.D. LAB BLOOD ADD-ON Performing Organization Address City/State/ZIP Code Phon e Number [facility]- [address] [place] [address], [place] [address] [facility] (ABNORMAL) Hemoglobin A1c (09/28/2018 7:08 PM INTELLECTUAL PROPERTY COUNSEL) P athologist Signature Hemoglobin A1c, 5.9 (H) 4.2 - 5.6 09/28/2018 [facility] B % 7:43 PM INTELLECTUAL PROPERTY COUNSEL [facility] Comment: Hemoglobin A1c values of 5.7-6.4 percent indicate an increased risk for developing diabetes m ellitus. In diabetic patients, HbA1c goals should be discussed with healthcare provider. Specimen Anatomical Collection Method Collection Time Receive d Time (Source) Location / / Volume Laterality Blood (Blood, 09/28/2018 7:08 PM 09/28/19 19 7:27 Venous) INTELLECTUAL PROPERTY COUNSEL PM INTELLECTUAL PROPERTY COUNSEL Cintia Copeland M.D. LAB BLOOD ADD-ON Performing Organization Address City/State/ZIP Code Phon e Number [facility]- [address] [place] [address] [facility] documented in this encounter Visit Diagnoses [...] documented as of this encounter Care Teams Station Supervisor Relationship Specialty Start Date End Date Cintia Bullock M.D. PCP - General 02/19/17 02/20/[address] [place] [phone] documented as of this encounter
--- OUTSIDE RECORDS SUMMARY | 2022-08-12 09:21 | XMS_ITS | Encounter Summary ---
:1960 Author Organization [facility] Address [address] [place] [address] Care Team Providers Name Role Phone Cintia Cobb M.D. Primary Care Provider [phone] Encounter Details Date Type Department Care Team Description 10/22/2018 Orders Only Department of [facility] Angélica Cobb Medicine, Jose Daniel Piper M.D. Clinic, in [address] [address] [place], [place] [phone] (W ork) [phone] Social History Tobacco Use Types Packs/Day Years [...] documented as of this encounter Care Teams Plumbing Inspector Relationship Specialty Start Date End Date Cintia Cobb M.D. PCP - General 02/19/17 02/20/[address] [place] [phone] documented as of this encounter
--- OUTSIDE RECORDS SUMMARY | 2022-08-12 09:21 | XMS_ITS | Encounter Summary ---
:1960 Author Organization [facility] Address [address] [place] [address] Care Team Providers Name Role Phone Cintia Cobb M.D. Primary Care Provider [phone] Reason for Visit Reason Comments Med Refill Encounter Details Date Type Department Care Team Description 07/17/2018 Refill Department of Infusion Cintia Cobb Med Refill Therapy in Feliz Arellano M.D. [address] [phone] (Wo rk) Social History Tobacco Use Types Packs/Day Years Used Date Smoking Tobacco: Never Smokeless Tobacco: Never Alcohol Use Standard Drinks/Week Comments No 0 (1 standard drink = 0.6 oz pure alcoho l) Sex Assigned at Date Recorded Not on file documented as of this encounter Miscellaneous Notes Telephone Encounter - Cintia Cobb M.D. - 07/20/2018 7:22 PM UNIFORM CAP OPERATOR Rx filled. ORM CAP OPERATOR documented in this encounter Plan of Treatment Not on filedocumented as of this encounter Visit Diagnoses Not on filedocumented in this encounter Additional Health Concerns Assessment Noted Time PHQ-9 Depression Total Score: 18 02/14/2013 9:53 AM CD T documented as of this encounter Care Teams Fruit Farmer Relationship Specialty Start Date End Date Cintia Cobb M.D. PCP - General 02/19/17 02/20/[id number] [phone] documented as of this encounter
--- OUTSIDE RECORDS SUMMARY | 2022-08-12 09:21 | XMS_ITS | Encounter Summary ---
:1960 Author Organization [facility] Address [address] [place] [address] Care Team Providers Name Role Phone Cintia Cobb M.D. Primary Care Provider [phone] Encounter Details Date Type Department Care Team Description 02/25/2019 Orders Only [facility] Edita El D.O. [address] , [facility] [address] [place] [phone] [place] [phone] (Wo rk) Social History Tobacco [...] documented as of this encounter Care Teams Cleaning Professional Relationship Specialty Start Date End Date Cintia Cobb M.D. PCP - General 02/19/17 02/20/[address] [phone] documented as of this encounter
--- OUTSIDE RECORDS SUMMARY | 2022-08-12 09:21 | XMS_ITS | Encounter Summary ---
:1960 Author Organization [facility] Address [address] [place] [address] Care Team Providers Name Role Phone Cintia Cobb M.D. Primary Care Provider [phone] Encounter Details Date Type Department Care Team Description 05/31/2018 Orders Only [facility] M.D[facility] Floor [address] [phone] (Wo rk) Social History Tobacco Use Types [...] documented as of this encounter Care Teams Car Repairer Relationship Specialty Start Date End Date Cintia Cobb M.D. PCP - General 02/19/17 02/20/[phone] [place] [phone] documented as of this encounter
--- OUTSIDE RECORDS SUMMARY | 2022-08-12 09:21 | XMS_ITS | Encounter Summary ---
:1960 Author Organization [facility] Address [address] [place] [address] Care Team Providers Name Role Phone Cintia Cobb M.D. Primary Care Provider [phone] Encounter Details Date Type Department Care Team Description 04/26/[address] [facility], M.D. Floor [address] [phone] (Wo rk) Social History Tobacco Use Types [...] documented as of this encounter Care Teams Night Court Magistrate Relationship Specialty Start Date End Date Cintia Cobb M.D. PCP - General 02/19/17 02/20/[phone] [place] [phone] documented as of this encounter
--- OUTSIDE RECORDS SUMMARY | 2022-08-12 09:21 | XMS_ITS | Encounter Summary ---
:1960 Author Organization [facility] Address [address] [place] [address] Care Team Providers Name Role Phone Cintia Cobb M.D. Primary Care Provider [phone] Reason for Visit Auth/Cert Specialty Diagnoses / Procedures Referred By Contact Refer red To Contact Diagnoses Pain Joint Fracture Hip Closed Initial Left (HCC) Hip Fracture Procedures n/a Referral ID Status Reason Start Date Expiration Date Visits Requ ested Visits Authorized [id number] 1 1 Encounter Details Date Type Department Care Team Description 08/13/2019 Surgery [facility] MAIN OR John Norman, OPEN REDUCTION INTERNAL [address] [place] [address] [address] [phone] [place] [address] (Wo rk) Social History Tobacco [...] Comments Blood Pressure 121/74 08/13/2019 4:18 AM TEST SKEIN WINDER Pulse 63 08/13/2019 4:18 AM TEST SKEIN WINDER Temperature 37.2 ??C (99 ??F) 08/13/2019 4:18 AM TEST SKEIN WINDER Respiratory Rate 18 08/13/2019 4:18 AM TEST SKEIN WINDER Oxygen Saturation 97% 08/13/2019 4:18 AM TEST SKEIN WINDER Inhaled Oxygen Concentration - - Weight 81 kg (178 lb 9.2 oz) 08/13/2019 4:31 AM TEST SKEIN WINDER Height 182.9 cm (6') 08/12/2019 12:43 PM TEST SKEIN WINDER Body Mass Index 23.98 08/12/2019 12:43 PM TEST SKEIN WINDER documented in this encounter Discharge Summaries Laz Dumont M.D. - 08/16/2019 12:00 PM CST DISCHARGE SUMMARY BRIEF OVERVIEW Discharge Provider: Laz Dumont M.D. Primary Care Providers: Cintia Cobb M.D. ([address] [address] Primary Care Provider Primary Care Provider Other [...] INTERNAL FIXATION LEFT FEMUR John Norman M.D. 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 Had surgery for repair on August 13 [...] and needs to get back to driving [employer] a soon as possible to help with [...] 45 minutes discharge care by me today SKEIN WINDER documented in this encounter Discharge Instructions Discharge Instr - Non [place] Qrtkke-BvdIbeaxz-Nnpkngkdfa, Becky - 08/16/2019 12:01 PM CST Please have Patient seen by PCP on rounds in 3-5 days. SKEIN WINDER documented in this encounter Medications at Time [...] L hip fx Onset Date: 08/12/19 Payor: [facility] [place] CARE / Plan: [facility] [employer] HMO / Product Type: Medicaid HMO / [...] Activity Level: Answer: Up with Assistance 08/12/19 4354 OBJECTIVE Pain Assessment Pain Score: (not rated [...] min Functional G-code Worksheet Marya Paredes P.T.A. [facility], Third Floor [address] [facility] [address] Dept: [phone] SKEIN WINDER Associated attestation - Stephanie Diaz P.T. - 08/18/2019 7:58 AM TEST SKEIN WINDER Physical Therapy Dismissal Snapshot Patient was seen [...] Levar, and Dr. Dumont. OMAR confirmed with [facility] that thereare no beds today. OMAR met [...] to go to short term rehab at [address] [place] [address] in [place] today. Ed contacted his , Julissa and confirmed that his friend can not transport until 3pm or later. SWS spoke with [facility] [place] [address] admissions and confirmed discharge today, by 12noon. Nurse Levar completed the Nurse to Nurse. SWS contacted [facility] and [facility] and they both are not available for transport today. SWS contacted [employer] and set up 12noon to transport. O: Discharge Planning for today to arrive no later than 3pm to [address] [place] [address] A: Ed was fully engaged in our conversation and open to going to a SNF upon discharge to decrease the time he is away from work for recovery. P: Discharge today - SKEIN WINDER Dumont, Laz Oakes M.D. 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 Patient definitely not interested in a senior care after hospitalization, particularly with experiences his mother had in usp facilities. Ed used a [facility] in [place] to start letter correspondences with dozens of Filipina women around 2003. Julissa, his , is from [facility] ([facility] near active [facility], [facility] 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 Had surgery for repair on August 13 [...] help I still recommend it. He skipped O46wlqef last few months (thinks they cause diarrhea [...] he makes big strides he likely needs usp help. He is not open to discussing this and fired the social group worker today.(he fired me over a similar [...] care. Spoke with nurse, PT, social work. SKEIN WINDER Marya Paredes P.T.A. - 08/15/2019 11:26 AM CST Physical Therapy Inpatient Treatment SUBJECTIVE Patient's Name: Laz Cuauhtemoc Luna Referring/Attending Provider: Rahel Ashby M.D. Medical Diagnosis: Pain Joint [M25.50] Fracture Hip Closed Initial Left (HCC) [S72.002A] Reason for Referral: L hip fx Onset Date: 08/12/19 Payor: [employer] [place] CARE / Plan: [facility] [employer] HMO / Product Type: Medicaid HMO / [...] in use of gait belt as leg control systems engineer to assist left LE to edge of [...] min Functional G-code Worksheet Marya Paredes P.T.A. [facility], [facility], Third Floor [address] [facility] [address] Dept: [phone] SKEIN WINDER Ml Ha L.S.W. - 08/15/2019 11:10 AM [...] SWS passed this information onto Hillary Sotomayor/Nurse Hot Head Machine Operator. SWS Shared with Ed that a person [...] that he is not interested in any senior care or and followed up with [address] [place] [address]/ Nathalia [phone]., Fax: [phone]. O: Discharge planning continued, Ed was sitting up in the chair and fully engaged in the conversation A: Ed enjoys sarcastic humor and consistent communication. Ed becomes frustrated if he feels he is being misinformed. P: Discharge likely tomorrow, per Dr. Dumont. Transport to be determined. SKEIN WINDER Kacie Huerta APRN, C.N.P., D.N.P. - 08/15/2019 [...] aware. Will have him follow up in [place] with Orthopedics in 2 weeks. 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 Patient definitely not interested in a senior care after hospitalization, particularly with experiences his mother had in usp facilities. Ed used a [facility] in [place] to start letter correspondences with dozens of Filipina women around 2003. Julissa, his , is from [facility] near active [facility], [facility] 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 Had surgery for repair on August 13 [...] with patient, 2 visits so far today. SKEIN WINDER Lacie Donaldson P.Randy. - 08/13/2019 12:48 PM CST Attempted to get patient up today. Patient continues to have numbness in legs. Will wait to start PTtomorrow 08/14/19. SKEIN WINDER Alyssa Shepherd O.T. - 08/13/2019 11:43 AM [...] mg (LOVENOX) 08/14/2019 40 mg, subcutaneous, Daily SKEIN WINDER documented in this encounter H&P Notes John [...] precede with surgical treatment. John Norman M.D. SKEIN WINDER Source Note - Juliette Bettencourt APRN, C.N.P., D.N.P. - 08/12/2019 2:22 PM TEST SKEIN WINDER SUBJECTIVE CHIEF COMPLAINT Mr. Laz Luna is a 59 y.o. male who presents with left hip pain. HISTORY OF PRESENT ILLNESS Patient transferred from [place] emergency room this afternoon. Patient works by [employer] and fell on ice while loading his [...] but plans on getting a ride to [facility] tomorrow. Patient scheduled for the [...] Procedure: ESOPHAGOGASTRODUODENOSCOPY; Surgeon: Rene Carlson M.D.; Location: [facility] GI LAB ??? LAPAROSCOPIC ASSISTED - [...] level: None Occupational History ??? 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 Financial [...] on phone: None Gets together: None Attends taoist service: None Active member of club or [...] labs, xray and diagnostics from admission and [place] ED. ASSESSMENT / PLAN #1 Fracture Hip [...] of plan of care, chart review, and zhax-me-mjmv interview. SKEIN WINDER Juliette Bettencourt APRN, C.N.P., D.N.P. - 08/12/2019 2:22 PM CST SUBJECTIVE CHIEF COMPLAINT Mr. Laz Luna is a 59 y.o. male who presents with left hip pain. HISTORY OF PRESENT ILLNESS Patient transferred from [place] emergency room this afternoon. Patient works by [employer] and fell on ice while loading his [...] but plans on getting a ride to [facility] tomorrow. Patient scheduled for the [...] Procedure: ESOPHAGOGASTRODUODENOSCOPY; Surgeon: Rene Carlson M.D.; Location: [facility] GI LAB ??? LAPAROSCOPIC ASSISTED - [...] level: None Occupational History ??? 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 Financial [...] on phone: None Gets together: None Attends taoist service: None Active member of club or [...] labs, xray and diagnostics from admission and [place] ED. ASSESSMENT / PLAN #1 Fracture Hip [...] of plan of care, chart review, and sxgk-gb-cnnm interview. SKEIN WINDER documented in this encounter Consult Notes Alyssa [...] L hip fx Onset Date: 08/12/19 Payor: [facility] CARE / Plan: [facility] HMO / [...] Procedure: ESOPHAGOGASTRODUODENOSCOPY; Surgeon: Rene Carlson M.D.; Location: [facility] GI LAB ??? LAPAROSCOPIC ASSISTED - GASTRIC BYPASS N/A 11/21/2014 Laparoscopic assisted - Gastric bypass ??? OPEN REDUCTION INTERNAL FIXATION FEMUR Left 08/13/2019 Procedure: OPEN REDUCTION INTERNAL FIXATION LEFT FEMUR; Surgeon: John Norman M.D.; Location:[facility] OR ??? OTHER CONVERTED SHX (SEE COMMENT) N/A 01/19/2017 >Implantation of dual-chamber permanent pacemaker. ??? OTHER SURGICAL HISTORY cystoscopy ??? UPPER GASTROINTESTINAL ENDOSCOPY N/A 11/21/2014 Upper gastrointestinal endoscopy History of Present Illness: Patient slipped and fell on the ice. 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 [facility]'s 3-year data, as reported at [facility] 2017, indicates a cut off of 39.4 or greater in daily activity is a fair to good accurate prediction of discharge home. Source: AM-PAC ???6 -Clicks?? functional assessment scores predict acute care hospital discharge destination. Bag Press Operator. 2014 May; 94 (9): 1252-61. 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 Currently, patient presents with impairments including R hip fx c ORIF completed 08/13/19 resulting in the following functional deficits: impaired ADL/IADL and functional/ADL transfers. Laz Luna is a 59 y.o. year old direct admit to [facility] [place] [facility] following a fall on ice resulting in R hip fracture requiring ORIF completed 08/13/19, admission 08/12/19. Today, Mr. Laz Luna actively participated in education regarding regaining PLOF c basic ADL. Educated in WBAT status. Educatedin adaptive equipment for regaining self care independence. Reports has long facility security officer and long shoe horn at home from [...] to get back to work in [employer], does state he would not be [...] toileting safety in a.m. Bathroom Safety Sheet [id number] provided as patient education with recommendations written [...] Daily Activities CMS Modifier: MARYJO Shepherd O.T. [facility], [facility], Third Floor [address] [facility] [address] Dept: [phone] SKEIN WINDER Lacie Donaldson P.T. - 08/14/2019 10:45 AM CST Consults Physical Therapy Inpatient Evaluation/Treatment SUBJECTIVE Patient's Name: Laz Luna Referring/Attending Provider: Rahel Ashby M.D. Medical Diagnosis: Pain Joint [M25.50] Fracture Hip Closed Initial Left (HCC) [S72.002A] Reason for Referral: L hip fx Onset Date: 08/12/19 Payor: [facility] CARE / Plan: [employer] / Product Type: Medicaid O / [...] Procedure: ESOPHAGOGASTRODUODENOSCOPY; Surgeon: Rene Carlson M.D.; Location: [facility] GI LAB ??? LAPAROSCOPIC ASSISTED - GASTRIC BYPASS N/A 11/21/2014 Laparoscopic assisted - Gastric bypass ??? OTHER CONVERTED SHX (SEE COMMENT) N/A 01/19/2017 >Implantation of dual-chamber permanent pacemaker. ??? OTHER SURGICAL HISTORY cystoscopy ??? UPPER GASTROINTESTINAL ENDOSCOPY N/A 11/21/2014 Upper gastrointestinal endoscopy History of Present Illness: Patient slipped and fell on the ice. 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 [facility], [facility], Third Floor [address] [facility] [address] Dept: [phone] SKEIN WINDER Ml Ha L.S.W. - 08/12/2019 3:45 PM CST Discharge Planning Assessment SUBJECTIVE Referral Data Referral Source: Early Screen for Discharge Planning Referral Reason: (59 year old, Admit Diagnosis: Hip Fracture) Who was present during the interview?: Patient Travel Specialist Services Used: No Psychosocial assessment, Coping, adjustment [...] Patient Information Primary Caregiver: Self(Spouse Julissa h: [phone], c:[phone], supportive neighbors and friends) Legal Information Legal [...] the basement) Support Systems: (Spouse Julissa h: [phone], c:[phone], supportive neighbors and friends) Anticipated Discharge Destination: Prison Care or Intermediate Care Facility Recommended Discharge [...] he could likely do outpatient PT in [place] at [address] [place] [address], if he would prefer a location closer than [place]. He stated that he may prefer to stay in the [facility] and [place] is the closest. He stated that he is open to [facility] sending a referral to [address] [place] [address] to determine if they have the ability to do outpatient PT for him or any other services. SWS received notice from [address] [place] [address] has accepted him for admission for short term rehab. SWS sent a message to [address] [place] [address] asking what outpatient PT services they provide. Discussed transportation options with patient and , including using a private vehicle, privately paying for a mobility van $50 or more and non-emergent ambulance. Social Work Services ([facility]) advised that if insurance does not cover the charge for non-emergent ambulance, it could be a minimum of $3,000 private pay. SWS explained that our physicians have documented the medical need for the transport, although, that does not assure coverage. The patient plans to discharge via friend or neighbor, becausehis Julissa does not drive. Social Work Services ([facility]) contact information, including a phone number, was provided to patient, if any need or questions arise. He plans to discharge to home and drive home if needed. Signed by: Maria Guadalupe Feng 08/12/2019 SKEIN WINDER documented in this encounter Nursing Notes Anika [...] as needed- d/c to 3 links in [place]. Denise Morris R.N. - 08/16/2019 5:16 AM [...] finally obtained vitals while pt on phone. Vivinaa Kay R.N. - 08/15/2019 8:00 AM CST [...] Tylenol & Oxycodone for adequate pain control. SKEIN WINDER Desirae Veras R.N. - 08/14/2019 6:39 PM [...] encouraged per self and he refuses assistance. SKEIN WINDER Ella Milan RAugustine - 08/14/2019 5:18 AM [...] CST PAS completed and sent to [facility]. PAS [id number] SKEIN WINDER Hanny Dowling R.N. - 08/13/2019 10:24 AM CST Patient became very agitated with nurse after she called him sir at the beginning of shift. Patient requested that he has a new nurse. Money Laundering Investigator was notified and spoke to the patient [...] need for pain meds. NPO since midnight SKEIN WINDER Ellen Horne R.N. - 08/12/2019 6:18 PM CST Shift Goals: Patient to remain free from falls Identify possible barriers to meeting goals/advancing plan of care: none End of Shift Summary: Patient remained free of falls this shift. SKEIN WINDER documented in this encounter OR Notes Op Note - John Norman M.D. - 08/13/2019 7:48 AM CST FULL OP NOTE Procedure(s) (LRB): OPEN REDUCTION INTERNAL FIXATION LEFT FEMUR (Left) Surgeon(s) and Role: * John Norman M.D. - Primary Sales And Marketing Manager: Lesli Zuñiga L.P.N. Anesthesia Type Regional Pre-operative Diagnosis Fracture Hip Intertrochanteric Closed Initial Left (HCC) Post-operative Diagnosis Fracture Hip Intertrochanteric Closed Initial Left (HCC) Full Operative Note Details PROCEDURE(S) Open reduction, intramedullary fixation of left intertrochanteric femur fracture. SURGEON(S) John Norman M.D. RN NURSERY: None. ANESTHESIA TYPE Spinal anesthesia. PRE-OPERATIVE DIAGNOSIS [...] closed using #1 Vicryl in an interrupted omowej-ec-iaguh fashion, followed by copious irrigation. Subcutaneous tissue [...] Implant Name Type Inv. Item Serial No. Mat Puncher Lot No. LRB No. Used NL FEM TFN RT [id number] - SNA - [id number] Hardware e.g. pins/screws/rods NL FEM TFN RT 130D [id number] NA Depuy Synthes [id number] Left [address] 10.5X110 - SNA - [id number] Hardware e.g. pins/screws/rods SCRW TFN FEN ST 10.5X110 NA Depuy Synthes [id number] Left 1 SCRW [facility]CK [facility] TI T25 5X38 - [id number] Hardware e.g. pins/screws/rods SCRW [facility] T25 5X38 Depuy Synthes Left 1 Intra-op Medications Date/Time Order Dose Route Action Action by 08/13/2019 0901 ceFAZolin in NaCl 0.9 % IVPB 2 g (ANCEF) intravenous Anesthesia Volume Adjustment Kalia Luna 08/13/2019 0727 ceFAZolin in NaCl 0.9 % IVPB 2 g (ANCEF) 2 g intravenous Given Kalia Luna M.D. SKEIN WINDER Brief Op Note - John Norman M.D. - 08/13/2019 7:48 AM CST BRIEF OP NOTE Procedure(s) (LRB): OPEN REDUCTION INTERNAL FIXATION LEFT FEMUR (Left) Surgeon(s) and Role: * John Norman M.D. - Primary Sales And Marketing Manager: Lesli Zuñiga L.P.N. Anesthesia Type Regional Pre-operative Diagnosis Fracture Hip Intertrochanteric Closed Initial Left (HCC) Post-operative Diagnosis Fracture Hip Intertrochanteric Closed Initial Left (HCC) Brief Operative Note Details Specimens None Drains None Estimated Blood Loss None Implants Implant Name Type Inv. Item Serial No. Mat Puncher Lot No. LRB No. Used NL FEM TFN RT 130D [id number] - SNA - [id number] Hardware e.g. pins/screws/rods NL FEM TFN RT 130D [id number] NA Depuy [employer]ynthes [id number] Left [address] 10.5X110 - SNA - [id number] Hardware e.g. pins/screws/rods SCRW TFN FEN ST 10.5X110 NA Depuy Synthes [id number] Left 1 SCRW LCK [employer] TI T25 5X38 - [id number] Hardware e.g. pins/screws/rods SCRW LCK [employer] TI T25 5X38 Depuy Synthes Left 1 John Norman M.D. SKEIN WINDER documented in this encounter Miscellaneous Notes Hospital Course - Rahel Ashby M.D. - 08/13/2019 12:26 PM CST 59 y/o male who presented to the ED with left hip pain workup revealed nondisplaced left intertrochanteric trochanteric fracture. Patient also has anemia of chronic disease 08/13 s/p ORIF, trend hemoglobin. SKEIN WINDER documented in this encounter Plan of Treatment Not on filedocumented as of this encounter Procedures Procedure Name Priority Date/Time Associated Diagnosis Comme nts ADULT OXYGEN Routine 08/15/2019 8:00 THERAPY AM TEST SKEIN WINDER ADULT OXYGEN Routine 08/14/2019 8:01 THERAPY PM TEST SKEIN WINDER ADULT OXYGEN Routine 08/14/2019 8:01 THERAPY AM TEST SKEIN WINDER IRON AND TOT Routine 08/14/2019 6:00 Results for IRON-BINDING AM TEST SKEIN WINDER this procedure CAPACITY, S/P are in the results section. HEMOGLOBIN, B Routine 08/14/2019 6:00 Results for AM TEST SKEIN WINDER this procedure are in the results section. VITAMIN B12 Routine 08/14/2019 6:00 Results for ASSAY, S AM TEST SKEIN WINDER this procedure are in the results section. ADULT OXYGEN Routine 08/13/2019 8:01 THERAPY PM TEST SKEIN WINDER ADULT OXYGEN Routine 08/13/2019 9:13 THERAPY AM TEST SKEIN WINDER ADULT OXYGEN Routine 08/13/2019 9:13 THERAPY AM TEST SKEIN WINDER FL FLUORO LESS RAD - Routine 08/13/2019 8:43 Results f or THAN 1 HOUR (most inpatients AM TEST SKEIN WINDER this proced ure and all are in the outpatients) results section. OPEN REDUCTION 08/13/2019 7:07 Fracture Hip INTERNAL AM TEST SKEIN WINDER Intertrochanteric FIXATION FEMUR Closed Initial Left (HCC) CBC WITH Routine 08/13/2019 6:06 Results for DIFFERENTIAL, B AM TEST SKEIN WINDER this procedu re are in the results section. GLUCOSE POCT, B Routine 08/13/2019 4:27 Results f or AM TEST SKEIN WINDER this procedure are in the results section. HEMOGLOBIN A1C, Routine 08/12/2019 1:17 Results f or B PM TEST SKEIN WINDER this procedure are in the results section. documented in this encounter Results (ABNORMAL) Vitamin B12 Assay (08/14/2019 6:00 AM TEST SKEIN WINDER) Analysis Performed At Patho logist Time Signature Vitamin B12 >2000 (H) 232 - 1245 08/14/2019 ECLR Assay, S ng/L 3:11 PM TEST SKEIN WINDER Comment: Biotin has been identified by the [facility] as a potential interfering substance. ??Higher concentr ations of biotin may be found in multivitamins, hair/nail supple ments, and workout supplements. ??If the result does not [facility] clinical observations, repeat testing after patient refrains fr om the use of supplements for at least 12 hours. Specimen Anatomical Collection Method Collection Time Receive d Time (Source) Location / / Volume Laterality Blood (Blood, 08/14/2019 6:00 AM 08/14/20 19 2:21 Venous) TEST SKEIN WINDER PM TEST SKEIN WINDER Laz Dumont M.D. LAB BLOOD ADD-ON Performing Organization Address City/State/ZIP Code Phon e Number [facility]- [address] [place] [address] [phone] [facility] [place] [address] System in [address] (ABNORMAL) Iron and Total Iron-Binding Capacity (08/14/2019 6:00 AM TEST SKEIN WINDER) P athologist Signature Iron 15 (L) 50 - 150 08/14/2019 [facility] mcg/dL 6:49 AM TEST SKEIN WINDER Total Iron 260 250 - 400 08/14/2019 [facility] Binding mcg/dL 6:49 AM TEST SKEIN WINDER Capacity Percent 6 (L) 14 - 50 % 08/14/2019 [facility] Saturation 6:49 AM TEST SKEIN WINDER Specimen Anatomical Collection Method Collection Time Receive d Time (Source) Location / / Volume Laterality Blood (Blood, 08/14/2019 6:00 AM 08/14/20 19 6:20 Venous) TEST SKEIN WINDER AM TEST SKEIN WINDER Laz Dumont M.D. LAB BLOOD ADD-ON Performing Organization Address City/State/ZIP Code Phon e Number [facility]- [address] [place] [address] [address] [employer] [place] [address] System in [place] [facility] [place] (ABNORMAL) Hemoglobin (08/14/2019 6:00 AM TEST SKEIN WINDER) P athologist Signature Hemoglobin 7.5 (L) 13.2 - 16.6 08/14/2019 [facility] g/dL 6:23 AM TEST SKEIN WINDER Specimen Anatomical Collection Method Collection Time Receive d Time (Source) Location / / Volume Laterality Blood (Blood, 08/14/2019 6:00 AM 08/14/20 19 6:20 Venous) TEST SKEIN WINDER AM TEST SKEIN WINDER John Norman M.D. LAB BLOOD ADD-ON Performing Organization Address City/State/ZIP Code Phon e Number [facility]- [address] [place], [place] [address] [facility] [place] [address] System in [place] [address] [place] Fluoro Less Than 1 Hour (08/13/2019 8:43 AM TEST SKEIN WINDER) Specimen (Source) Anatomical Location Collection Method / Collectio n Time Received Time / Laterality Volume Narrative 8000 LOS SEMN - 08/13/2019 8:45 AM TEST SKEIN WINDER This exam does not require a radiologist review or interpretation. Please refer to the patient's medical record on this date for clinical details. John Norman M.D. IMG FLUOROSCOPY PROCEDURES Performing Organization Address City/State/ZIP Code Phon e Number 8000 [facility] (ABNORMAL) CBC with Differential (08/13/2019 6:06 AM TEST SKEIN WINDER) [facility] Method Time Signature Hemoglobin 8.1 (L) 13.2 - 08/13/2019 [facility] 16.6 g/dL 6:32 AM TEST SKEIN WINDER Hematocrit 28.0 (L) 38.3 - 08/13/2019 [facility] 48.6 % 6:32 AM TEST SKEIN WINDER Erythrocytes 3.48 (L) 4.35 - 08/13/2019 [facility] 5.65 6:32 AM TEST SKEIN WINDER x10(12)/L MCV 80.5 78.2 - 08/13/2019 [facility] 97.9 fL 6:32 AM TEST SKEIN WINDER RBC Distrib Width 17.9 (H) 11.8 - 08/13/2019 [facility] 14.5 % 6:32 AM TEST SKEIN WINDER Platelet Count 179 135 - 317 08/13/2019 [facility] x10(9)/L 6:32 AM TEST SKEIN WINDER Leukocytes 6.7 3.4 - 9.6 08/13/2019 [facility] x10(9)/L 6:32 AM TEST SKEIN WINDER Neutrophils 5.06 1.56 - 08/13/2019 [facility] 6.45 6:32 AM TEST SKEIN WINDER x10(9)/L Lymphocytes 0.84 (L) 0.95 - 08/13/2019 [facility] 3.07 6:32 AM TEST SKEIN WINDER x10(9)/L Monocytes 0.73 0.26 - 08/13/2019 [facility] 0.81 6:32 AM TEST SKEIN WINDER x10(9)/L Eosinophils 0.06 0.03 - 08/13/2019 [facility] 0.48 6:32 AM TEST SKEIN WINDER x10(9)/L Basophils 0.03 0.01 - 08/13/2019 [facility] 0.08 6:32 AM TEST SKEIN WINDER x10(9)/L Specimen Anatomical Collection Method Collection Time Receive d Time (Source) Location / / Volume Laterality Blood (Blood, 08/13/2019 6:06 AM 08/13/20 19 6:28 Venous) TEST SKEIN WINDER AM TEST SKEIN WINDER Isaac Tompkins APRN.P., FidelNPiliP. LAB BLOOD ADD-ON Performing Organization Address City/State/ZIP Code Phon e Number [facility]- [address] [place], [place] [address] [facility] [place] [address] System in [place] [address] [place] Glucose, POCT (08/13/2019 4:27 AM TEST SKEIN WINDER) athologist Signature Glucose, POCT, 101 70 - 140 08/13/2019 [facility] B mg/dL 4:27 AM TEST SKEIN WINDER Specimen Anatomical Collection Method Collection Time Receive d Time (Source) Location / / Volume Laterality Blood 08/13/2019 4:27 AM 9 4:34 TEST SKEIN WINDER AM TEST SKEIN WINDER Generic Rals LAB POCT ORDERABLES-MANUAL Performing Organization Address City/[facility]/ZIP Code Phon e Number [facility]- [address] [place], [place] [address] [facility] [place] [address] System in [place] [address] [place] (ABNORMAL) Hemoglobin A1c (08/12/2019 1:17 PM TEST SKEIN WINDER) athologist Signature Hemoglobin A1c, 5.7 (H) 4.2 - 5.6 08/12/2019 [facility] B % 1:43 PM TEST SKEIN WINDER Comment: Hemoglobin A1c values of 5.7-6.4 percent indicate an increased risk for developing diabetes m ellitus. In diabetic patients, HbA1c goals should be discussed with healthcare provider. Specimen Anatomical Collection Method Collection Time Receive d Time (Source) Location / / Volume Laterality Blood (Blood, 08/12/2019 1:17 PM 08/12/20 19 1:28 Venous) TEST SKEIN WINDER PM TEST SKEIN WINDER John Norman M.D. LAB BLOOD ADD-ON Performing Organization Address City/State/ZIP Code Phon e Number [facility]- [address] [place], [place] [address] [facility] [place] [address] System in [place] [address] [place] documented in this encounter Visit Diagnoses [...] tablet 1,000 mg Given 08/16/2019 9:00 AM TEST SKEIN WINDER 1,000 mg (TYLENOL) 1,000 mg, oral, 3 times daily PRN, mild pain or score 1-3 of 10, headaches, fever, Starting on Thu08/12/19 at 1403 Given 08/15/2019 6:32 PM TEST SKEIN WINDER 1,000 mg Given 08/15/2019 8:46 AM TEST SKEIN WINDER 1,000 mg allopurinol tablet 300 mg (ZYLOPRIM) Given 08/16/2019 6:22 AM TEST SKEIN WINDER 300 mg 300 mg, oral, Daily at bedtime, First dose (after last modification) on Thu08/16/19 at 0630 calcium carbonate chewable tablet Given 08/16/2019 6:0 9 AM TEST SKEIN WINDER 400 mg of calcium 400 mg of calcium (TUMS) 400 mg of calcium, oral, 2 times daily, First dose on Thu08/12/19 at 2100, Doses listed are in mg of elemental calcium. Take with food. 500 mg calcium carbonate contains 200 mg of elemental calcium. Given 08/15/2019 6:32 AM TEST SKEIN WINDER 400 mg of calcium Given 08/14/2019 5:25 PM TEST SKEIN WINDER 400 mg of calcium calcium carbonate chewable tablet Given 08/15/2019 5:4 3 PM TEST SKEIN WINDER 400 mg of calcium 400 mg of calcium (TUMS) 400 mg of calcium, oral, Every 2 hour PRN, heartburn, indigestion, Starting on Thu08/12/19 at 1413, Doses listed are in mg of elemental calcium. Take with food. 500 mg calcium carbonate contains 200 mg of elemental calcium. Given 08/13/2019 5:35 PM TEST SKEIN WINDER 400 mg of calcium ferrous sulfate tablet 65 mg of iron 65 mg of iron, oral, Daily, First dose o n 08/14/19 at 1315, 325 mg contains 65 mg of elemental iron. furosemide tablet 40 mg (LASIX) Given 08/15/2019 5:43 PM TEST SKEIN WINDER 40 mg 40 mg, oral, Daily before dinner, First dose on Thu08/12/19 at 1600 Given 08/14/2019 5:25 PM TEST SKEIN WINDER 40 mg Given 08/13/2019 5:33 PM TEST SKEIN WINDER 40 mg morphine injection 2 mg Given 08/15/2019 8:45 AM TEST SKEIN WINDER 2 mg 2 mg, intravenous, Every 2 hour PRN, severe pain or score 7-10 of 10, breakthrough pain, Starting on Thu08/12/19 at 1413, For breakthrough pain unrelieved 30 minutes after PRN oral pain medication is used or if unable to take oral pain medication. oxyCODONE IR tablet 10 mg (ROXICODONE) Given 08/16/2019 9:00 AM TEST SKEIN WINDER 10 mg 10 mg, oral, Every 4 hours PRN, severe pain or score 7-10 of 10, Starting on 08/13/19 at 0942, Second line therapy. If patient is greater than 7 after 2 hours, call service for new order. Given 08/15/2019 6:32 PM TEST SKEIN WINDER 10 mg Given 08/15/2019 1:31 PM TEST SKEIN WINDER 10 mg oxyCODONE IR tablet 5 mg (ROXICODONE) 5 mg, oral, Every 4 hours PRN, moderate pain or score 4-6 of 10, Starting on 08/13/19 at 0942, Second line therapy pantoprazole DR tablet 40 mg (PROTONIX) Given 08/16/2019 6:09 AM TEST SKEIN WINDER 40 mg 40 mg, oral, Daily before breakfast, First dose on 08/13/19 at 0700, pantoprazole 40 mg oral daily was interchanged for omeprazole 20 or 40 mg oral daily Swallow whole. Do NOT crush, chew, or split tablet. Given 08/15/2019 6:30 AM TEST SKEIN WINDER 40 mg Given 08/14/2019 6:36 AM TEST SKEIN WINDER 40 mg pediatric jsdznmipxdnu-tnaw-nysftctb Given 08/16/2019 6:09 AM CS T 4 tablets chewable tablet 4 tablet (FLINTSTONES COMPLETE) 4 tablet, oral, Daily, First dose (after last modification) on 08/15/19 at 0630 Given 08/15/2019 6:32 AM TEST SKEIN WINDER 4 tablets sodium chloride 0.9 % injection 10 mL Given 08/15/2019 8:46 AM TEST SKEIN WINDER 10 mL 10 mL, intravenous, As needed, line care, Starting on Thu08/12/19 at 1410, Peripheral Intravenous Catheter and Rapid Infusion Catheter, prior to blood sampling, post blood transfusion or post blood sampling sodium chloride 0.9 % injection 3 mL Given 08/15/2019 10:09 PM TEST SKEIN WINDER 3 mL 3 mL, intravenous, Every 12 hours scheduled, First dose on Thu08/12/19 at 2100, Peripheral Intravenous Catheter and Rapid Infusion Catheter, when no infusion to maintain patency Given 08/14/2019 8:18 PM TEST SKEIN WINDER 3 mL Given 08/12/2019 11:47 PM TEST SKEIN WINDER 3 mL tamsulosin 24 hr capsule 0.4 [...] Recently Administered Medications Times are shown in TEST SKEIN WINDER. Scheduled Medication Order 08/14/2019 08/15/2019 08/16/2019 allopurinol [...] NOT crush, chew, or split tablet. pediatric hvokbflkicej-xjih-vzhhakup shaina wable tablet 2 tablet (FLINTSTONES COMPLETE) (CANCELED) 0902 (Given - Provider: Desirae Veras R.N.) 2 tablet, oral, Daily, First dose on 08/13/19 at 0900 pediatric ejwyfvjhmnbu-gaut-qvmybrar shaina wable tablet 2 tablet (FLINTSTONES COMPLETE) (COMPLETED) 1144 (Given - Provider: Desirae Veras R.N.) 2 tablet, oral, Once, On 08/14/19 at 1145, For 1 dose, For total AM dose of 4 tablets pediatric fgyligjrllir-fvkr-ieydbopv shaina wable tablet 4 tablet (FLINTSTONES COMPLETE) [...] mg of calcium, oral, Every 2 hour MA N, heartburn, indigestion, Starting on Thu08/12/19 at [...] Viviana Acosta R.N.)1832 (See Alternative - Provider: Vviiana Acosta R.N.) 0900 (See Alternative - Provider: [...] documented as of this encounter Care Teams Golf Club Head Inspector And Adjuster Relationship Specialty Start Date End Date Cintia Cobb M.D. PCP - General 02/19/17 02/20/[id number] [place] [address] [address] documented as of this encounter
--- OUTSIDE RECORDS SUMMARY | 2022-08-12 09:21 | XMS_ITS | Encounter Summary ---
:1960 Author Organization [facility] Address [address] [place] [address] Care Team Providers Name Role Phone Cintia Cobb M.D. Primary Care Provider [phone] Reason for Visit Reason Comments Med Refill Encounter Details Date Type Department Care Team Description 09/30/2018 Refill Department of [facility] Angélica Cobb Med Refill Medicine, Jose Daniel Piper M.D. [facility], in [address] [address] [place], [place] [address] [phone] Social History Tobacco Use Types Packs/Day Years [...] documented as of this encounter Care Teams Podiatric Foot And Ankle Specialist Relationship Specialty Start Date End Date Cintia Cobb M.D. PCP - General 02/19/17 02/20/[address] [place] [phone] documented as of this encounter
--- OUTSIDE RECORDS SUMMARY | 2022-08-12 09:21 | XMS_ITS | Encounter Summary ---
:1960 Author Organization [facility] Address [address] [place] [address] Care Team Providers Name Role Phone Cintia Cobb M.D. Primary Care Provider Reason for Visit Reason Onset Date Comments Communication 09/29/2018 Encounter Details Date Type Department Care Team Description 09/29/2018 Clinical Communication Department of [facility] Medicine, Cintia Jean aBptiste [facility], in S, RaysaD. [address] [phone] Social History Tobacco Use Types Packs/Day Years Used Date Smoking Tobacco: Never Smokeless Tobacco: Never Alcohol Use Standard Drinks/Week Comments No 0 (1 standard drink = 0.6 oz pure alcoho l) Sex Assigned at Date Recorded Not on file documented as of this encounter Miscellaneous Notes Telephone Encounter - Laura Mejia R.N. - 09/30/2018 11:48 AM MANAGER UNDERWRITING Pharmacy contacted and updated directions given. GER UNDERWRITING Telephone Encounter - Emelia Ackerman - 09/30/2018 11:39 AM CST Pharmacy is stating that they did not receive the new script with updated directions. Please send again. GER UNDERWRITING Telephone Encounter - Laura Mejia R.N. - 09/30/2018 10:17 AM MANAGER UNDERWRITING Pharmacy notified that a new script has been sent with updated directions. GER UNDERWRITING Telephone Encounter - Cintia Cobb M.D. - 09/30/2018 10:14 AM MANAGER UNDERWRITING I attempted to remove the directions of bid. It should be daily for life. Cintia Segura GER UNDERWRITING Telephone Encounter - Laura Mejia R.N. - 09/29/2018 3:43 PM CST Unable to review 09/28/18 visit note, not yet completed. Pharmacy states the instructions state once daily (script refilled as once daily), but then additional instructions state BID for an indefinite amount of time. Please advise. Juan drug will need updated directions. GER UNDERWRITING Telephone Encounter - Eli Armstrong - 09/29/2018 3:28 PM CST [facility] in [place] called to clarify RX sent for Ed from Dr Song, please call them at [phone] GER UNDERWRITING documented in this encounter Plan of Treatment Not on filedocumented as of this encounter Visit Diagnoses Not on filedocumented in this encounter Additional Health Concerns Assessment Noted Time PHQ-9 Depression Total Score: 18 02/14/2013 9:53 AM CD T documented as of this encounter Care Teams Pulp Tester Relationship Specialty Start Date End Date Cintia Cobb M.D. PCP - General 02/19/17 02/20/[id number] [address] documented as of this encounter
--- OUTSIDE RECORDS SUMMARY | 2022-08-12 09:21 | XMS_ITS | Encounter Summary ---
:1960 Author Organization [facility] Address [address] [place] [address] Care Team Providers Name Role Phone Cintia Cobb M.D. Primary Care Provider [phone] Reason for Visit Reason Comments Anemia Encounter Details Date Type Department Care Team Description 06/01/2018 Office Visit Department of [facility] Soumya Cobb Iron Deficiency Blood Loss Chronic (Primary Dx); Medicine, Jose Daniel Piper M.D. Chronic Or Unspecified Gastrojejunal Ulc er With Hemorrhage; [place] [address] Radiculo fabiana Lumbar; [facility] Somnolence [address] [address] [place], [place] [phone] (Work) [phone] Social History Tobacco Use Types Packs/Day Years [...] his pain. He will be seeing the research support specialist next week. His stomach is starting [...] asleep. 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 Brief [...] Ferritin, S 33 30 - 400 06/02/2018 [facility] mcg/L 2:25 PM CDT [facility] Comment: Biotin has been identified by the [facility] as a potential interfering substance. ??Higher concentr ations of biotin may be found in multivitamins, hair/nail supple ments, and workout supplements. ??If the result does not [facility] clinical observations, repeat testing after patient refrains fr om the use of supplements for at least 12 hours. Specimen Anatomical Collection Method Collection Time Receive d Time (Source) Location / / Volume Laterality Blood (Blood, 06/01/2018 7:07 PM 06/02/20 18 1:59 Venous) CDT PM CDT Cintia Copeland M.D. LAB BLOOD ADD-ON Performing Organization Address City/State/ZIP Code Phon e Number [facility] [address] [place] [address] [facility] (ABNORMAL) Hemoglobin (06/01/2018 7:07 PM CDT) athologist Signature Hemoglobin 7.8 (L) 13.2 - 16.6 06/01/2018 [facility] g/dL 7:17 PM CDT [facility] Specimen Anatomical Collection Method Collection Time Receive d Time (Source) Location / / Volume Laterality Blood (Blood, 06/01/2018 7:07 PM 06/01/20 18 7:09 Venous) CDT PM CDT Cintia Copeland M.D. LAB BLOOD ADD-ON Performing Organization Address City/State/ZIP Code Phon e Number [facility]- [address] [place] [address], [place] [address] [facility] documented in this encounter Visit Diagnoses Diagnosis Anemia Iron Deficiency Blood Loss Chroni c - Primary Chronic Or Unspecified Gastrojejunal Ulc er With Hemorrhage Radiculopathy Lumbar Somnolence documented in this encounter Additional Health Concerns Assessment Noted Time PHQ-9 Depression Total Score: 18 02/14/2013 9:53 AM CD T documented as of this encounter Care Teams Heat And Frost Insulator Helper Relationship Specialty Start Date End Date Cintia Cobb M.D. PCP - General 02/19/17 02/20/[id number] [address] documented as of this encounter
--- OUTSIDE RECORDS SUMMARY | 2022-08-12 09:21 | XMS_ITS | Encounter Summary ---
:1960 Author Organization [facility] Address [address] [place] [address] Care Team Providers Name Role Phone Cintia Cobb M.D. Primary Care Provider [phone] Reason for Visit Reason Comments Med Refill Encounter Details Date Type Department Care Team Description 06/20/2019 Refill Department of [facility] Angélica Cobb Med Refill Medicine, Montara Keely Piper [facility], in [address] [place] [address] [phone] Social History Tobacco Use Types Packs/Day Years [...] documented as of this encounter Care Teams Lead Radiation Therapist Relationship Specialty Start Date End Date Cintia Cobb M.D. PCP - General 02/19/17 02/20/[address] [place] [phone] documented as of this encounter
--- OUTSIDE RECORDS SUMMARY | 2022-08-12 09:21 | XMS_ITS | Encounter Summary ---
:1960 Author Organization [facility] Address [address] [place] [address] Care Team Providers Name Role Phone Cintia Cobb M.D. Primary Care Provider [phone] Encounter Details Date Type Department Care Team Description 08/12/2019 Orders Only Department of Orthopedic John Norman M.D. Surgery in [address] [address] [place] [address] [place] [address] [phone] Social History Tobacco Use Types Packs/Day Years [...] documented as of this encounter Care Teams Wildlife Refuge Specialist Relationship Specialty Start Date End Date Cintia Cobb M.D. PCP - General 02/19/17 02/20/[address] [address] documented as of this encounter
--- OUTSIDE RECORDS SUMMARY | 2022-08-12 09:22 | XMS_ITS | Encounter Summary ---
:1960 Author Organization [facility] Address [address] [place] [address] Care Team Providers Name Role Phone Cintia Cobb M.D. Primary Care Provider [phone] Encounter Details Date Type Department Care Team Description 04/21/2018 Hospital Department of [place], Hemorrhage Encounter Laboratory Luis Fernandez, Gastrointestina l Medicine in [address] [address] [place], [place] [phone] (Work) [phone] Social History Tobacco Use Types Packs/Day Years [...] CBC with Differential (04/21/2018 1:35 PM CDT) [facility] gist Method Time Signature Hemoglobin 8.4 (L) 13.2 - 04/21/2018 [facility] 16.6 g/dL 1:44 PM CDT [facility] Hematocrit 26.6 (L) 38.3 - 04/21/2018 [facility] 48.6 % 1:44 PM CDT [facility] Erythrocytes 2.99 (L) 4.35 - 04/21/2018 [facility] 5.65 1:44 PM CDT HEALTH x10(12)/L [facility] MCV 89.0 78.2 - 04/21/2018 [facility] 97.9 fL 1:44 PM T [facility] RBC Distrib Width 15.4 (H) 11.8 - 04/21/2018 [facility] 14.5 % 1:44 PM CDT [facility] Platelet Count 251 135 - 317 04/21/2018 [facility] x10(9)/L 1:44 PM CDT [facility] Leukocytes 8.8 3.4 - 9.6 04/21/2018 [facility] x10(9)/L 1:44 PM CDT [facility] Neutrophils 5.90 1.56 - 04/21/2018 [facility] 6.45 1:44 PM CDT [facility]ALTH x10(9)/L [facility] Lymphocytes 1.91 0.95 - 04/21/2018 [facility] 3.07 1:44 PM CDT [facility]ALTH x10(9)/L [facility] Monocytes 0.78 0.26 - 04/21/2018 [facility] 0.81 1:44 PM CDT HEALTH x10(9)/L [facility] Eosinophils 0.15 0.03 - 04/21/2018 [facility] 0.48 1:44 PM CDT HEALTH x10(9)/L [facility] Basophils 0.05 0.01 - 04/21/2018 [facility] 0.08 1:44 PM CDT HEALTH x10(9)/L [facility] Specimen Anatomical Collection Method Collection Time Receive d Time (Source) Location / / Volume Laterality Blood (Blood, 04/21/2018 1:35 PM 04/21/20 18 1:37 Venous) CDT PM CDT Kelvin Narvaez APRNNEricka LAB BLOOD ADD-ON Performing Organization Address City/State/ZIP Code Phon e Number [facility] [address] [place] [address] [facility] documented in this encounter Visit Diagnoses Diagnosis Hemorrhage Gastrointestinal documented in this encounter Additional Health Concerns Assessment Noted Time PHQ-9 Depression Total Score: 18 02/14/2013 9:53 AM CD T documented as of this encounter Care Teams Log Brander Relationship Specialty Start Date End Date Cintia Cobb M.D. PCP - General 02/19/17 02/20/[address] [place] [address] DREW Arellano [phone] documented as of this encounter
--- OUTSIDE RECORDS SUMMARY | 2022-08-12 09:22 | XMS_ITS | Encounter Summary ---
:1960 Author Organization [facility] Address [address] [place] [address] Care Team Providers Name Role Phone Cintia Cobb M.D. Primary Care Provider [phone] Reason for Referral MRI/CAT/PET Scan (Routine) - Closed Specialty Diagnoses / Procedures Referred By Contact Refer red To Contact Radiology Diagnoses Pain Low Back Unspecified Cintia Cobb [facility] Region Procedures CT Lumbar Spine without IV Contrast UT CT LUMBAR SPINE WO CNTRST HC CT LUMBAR SPINE WO CNTRST UT CT LUMBAR SPINE WO SAMARA Piper M.D. [address] [place] [phone] Referral ID Status Reason Start Date Expiration Date Visits Requ ested Visits Authorized [id number] Closed 04/07/2018 04/07/2019 1 1 utpatient (Routine) - Closed Specialty Diagnoses / Procedures Referred By Contact Refer red To Contact Diagnoses Weakness Leg Left Cintia Cobb Referring S, M.D. Provider [address] [place] [phone] Referral ID Status Reason Start Date Expiration Visits Visits Date Requested Authorized [id number] Closed Patient 04/06/2018 04/06/2019 1 1 Preference Reason for Visit Reason Comments bilateral knee pain Appointment Request (Routine) - Closed Specialty Diagnoses / Procedures Referred By Contact Refer red To Contact Family Medicine Referral ID Status Reason Start Date Expiration Date Visits Requ ested Visits Authorized [id number] Closed 03/31/2018 03/31/2019 1 1 Encounter Details Date Type Department Care Team Description 04/06/2018 Office Visit Department of Family Reed Cobb Leg Left (Primary Dx); Medicine, Jose Daniel Piper M.D. [facility], [address] [address] [place], [place] [phone] (W ork) [address] [phone] Social History Tobacco Use Types Packs/Day Years [...] documented as of this encounter Care Teams Outside Plant Engineer Relationship Specialty Start Date End Date Cintia Cobb M.D. PCP - General 02/19/17 02/20/[id number] [address] documented as of this encounter
--- OUTSIDE RECORDS SUMMARY | 2022-08-12 09:22 | XMS_ITS | Encounter Summary ---
:1960 Author Organization [facility] Address [address] [place] [address] Care Team Providers Name Role Phone Cintia Cobb M.D. Primary Care Provider [phone] Reason for Visit Reason Onset Date Comments CT Scan 04/08/2018 Encounter Details Date Type Department Care Team Description 04/08/2018 Clinical Communication Department of [facility] Scan Medicine, Jose Daniel Piper M.D. [address] [address] [place], [place] [phone] (Work) [phone] Social History Tobacco Use Types Packs/Day Years [...] pt calling pts 's phone number at [phone]. No answer, left voice message for pt to contact the clinic. Telephone Encounter - Jena Martell R.N. - 04/08/2018 10:24 AM CDT Scheduling informed RN that the number listed on his chart ([phone]) is an invalid number. RN tried to call pts home phone number of [phone] and is an invalid number. RN attempted to contact pt using his temporary number in his chart ([phone]), no answer, and isan invalid number. Telephone [...] documented as of this encounter Care Teams Sheet Writer Relationship Specialty Start Date End Date Cintia Cobb M.D. PCP - General 02/19/17 02/20/[address] [place] [phone] documented as of this encounter
--- OUTSIDE RECORDS SUMMARY | 2022-08-12 09:22 | XMS_ITS | Encounter Summary ---
:1960 Author Organization [facility] Address [address] [place] [address] Care Team Providers Name Role Phone Cintia Cobb M.D. Primary Care Provider [phone] Reason for Visit Reason Comments Black or Bloody Stool since wed black tarry stools Encounter Details Date Type Department Care Team Description 04/12/2018 Emergency [place] Eugene Buncha ge Gastrointestinal (Primary Dx); Emergency Department Reed ALLEN M.D. Anemia; [address] [facility] [address] [address] [facility] [address]; [place], [place] Bl[address] Diabetes Mellitus Type 2 Hyperglycemia ( HCC); [id number] [place], [place] Hypoalbuminemia [phone] (Wo rk) Social History Tobacco Use [...] . We will be transferring him to [place] with the intention of having him scoped [...] Dr. Jess Hernandez External Hospital or Facilty [facility] Eugene Bunch III, M.D. 04/12/18 1621 [...] Cells, 2 Units (04/12/2018 11:55 AM CDT) [facility] Method Time Signature Red Blood [id number] 04/13/2018 [facility] Cells Released 5:29 AM CDT [facility] Product Code ^-1 LR Red 04/13/2018 [facility] Blood Cells /500 5:29 AM CDT [facility] Donation [id number] 04/13/2018 [facility] Number 5:29 AM CDT [facility] Barcoded [id number] 04/13/2018 [facility] Product Code 5:29 AM [facility] [place] [facility] Unit Status Not Available 04/13/2018 [facility] 5:29 AM [facility] Unit [id number] 04/13/2018 [facility] Expiration 5:29 AM T [facility] Unit ABO/Rh 6200 04/13/2018 [facility] 5:29 AM T [facility] Unit ABO/Rh A POSITIVE [facility] [place] [facility] Specimen Anatomical Collection Method Collection Time Receive d Time (Source) Location / / Volume Laterality WB EDTA 04/12/2018 11:55 04/12/2018 AM CDT 12:03 PM CDT Eugene Bunch III, M.D. BLOOD BANK PRODUCT ORDE CATARINO Performing Organization Address [facility] Phon e Number [address] [address] [place] [facility] Type and screen (04/12/2018 11:55 AM CDT) [facility] Method Time Signature ABO Group A 04/12/2018 [facility] 12:30 PM CDT [facility] Rh Type POS 04/12/2018 [facility] 12:31 PM T [facility] Antibody Screen NEG 04/12/2018 [facility] 12:43 PM T [facility] Type & Screen 04/15/2018 04/12/2018 [facility] Expiration 23:59 12:43 PM T [facility] ELXM Eligible N 04/12/2018 [facility] 12:43 PM T [facility] Specimen Anatomical Collection Method Collection Time Receive d Time (Source) Location / / Volume Laterality Blood 04/12/2018 11:55 04/12/2018 AM CDT 12:03 PM CDT Eugene Bunch III, M.D. LAB BLOOD BANK TEST ORD ERAPRETTY Performing Organization Address [facility] Phon e Number [address] [address] [place] [facility] Emergency blood uncrossmatched (04/12/2018 11:55 AM CDT) Patholo gist Method Time Signature Emergency EMBLD 04/12/2018 [facility] Blood Confirmed 12:39 PM CDT [facility] Specimen Anatomical Collection Method Collection Time Receive d Time (Source) Location / / Volume Laterality Blood (Blood, 04/12/2018 11:55 04/12/2018 Venous) AM CDT 11:57 AM CDT Eugene Bunch III, M.D. LAB BLOOD BANK TEST ORD ERABLES Performing Organization Address [facility] Phon e Number [place] [phone] [place] [facility] PT (Prothrombin Time) with INR (04/12/2018 11:23 AM CDT) athologist Signature Prothrombin 9.7 8.8 - 11.9 04/12/2018 [facility] Time, P sec 12:31 PM CDT [facility] INR 1.0 0.9 - 1.2 04/12/2018 [facility] 12:31 PM CDT [facility] Comment: Standard intensity warfarin therapeutic range: 2.0 to 3.0 High intensity warfarin therapeutic rang e: 2.5 to 3.5 Specimen Anatomical Collection Method Collection Time Receive d Time (Source) Location / / Volume Laterality Blood (Blood, 04/12/2018 11:23 04/12/2018 Venous) AM CDT 11:25 AM CDT Eugene Bunch III, M.D. LAB BLOOD ADD-ON Performing Organization Address [facility] Phon e Number [address] [address] [place] [facility] (ABNORMAL) Lactate (04/12/2018 11:23 AM CDT) P athologist Signature Lactate, P 3.1 (H) 0.5 - 2.2 04/12/2018 [facility] mmol/L 11:39 AM CDT [facility] Specimen Anatomical Collection Method Collection Time Receive d Time (Source) Location / / Volume Laterality Blood (Blood, 04/12/2018 11:23 04/12/2018 Venous) AM CDT 11:25 AM CDT Eugene Bunch III, M.D. LAB BLOOD NON ADD-ON Performing Organization Address City/State/ZIP Code Phon e Number [facility] [id number] [address] [place] [facility] (ABNORMAL) Comprehensive Metabolic Panel (04/12/2018 11:23 AM [facility]) P athologist Signature Potassium, P 3.8 3.6 - 5.2 04/12/2018 [facility] mmol/L 11:45 AM [facility] [place] [facility] Sodium, P 137 135 - 145 04/12/2018 [facility] mmol/L 11:45 AM [facility] Chloride, P 102 98 - 107 04/12/2018 [facility] mmol/L 11:45 AM [facility] Bicarbonate, P 23 22 - 29 04/12/2018 [facility] mmol/L 11:45 AM [facility] Anion Gap, P 12 7 - 15 04/12/2018 [facility] 11:45 AM [facility] [place] [facility] BUN (Blood Urea 88 (H) 8 - 24 04/12/2018 [facility] Nitrogen), P mg/dL 11:45 AM [facility] [place] [facility] Creatinine 1.22 0.74 - 04/12/2018 [facility] 1.35 mg/dL 11:45 AM [facility] [place] [facility] eGFR-Black/Afri 75 >=60 04/12/2018 [facility] can Tanzanian mL/min/BSA 11:[address] [facility] [place] [facility] Comment: ----ADDITIONAL INFORMATION---- Estimated GFR calculated using the 2009 CKD_EPI creatinine equation. eGFR Non-Black/ 64 >=60 mL/min/BSA 04/12/2018 11:45 AM [facility] [place] [facility] [place] [facility] Comment: ----ADDITIONAL INFORMATION---- Estimated GFR calculated using the 2009 CKD_EPI creatinine equation. Calcium, Total, P 8.1 (L) 8.6 - 10.0 04/12/2018 11:45 AM [facility] mg/dL [facility] [place] [facility] Glucose, P 227 (H) 70 - 140 mg/dL 04/12/2018 11:45 AM [facility] Protein, Total, P 5.1 (L) 6.3 - 7.9 g/dL 04/12/2018 11:45 AM [facility] Albumin, P 2.9 (L) 3.5 - 5.0 g/dL 04/12/2018 11:45 AM [facility] Aspartate 12 8 - 48 U/L 04/12/2018 11:45 AM [facility] IC Aminotransferase (AST), P [facility] Alkaline Phosphatase, P 38 (L) 45 - 115 U/L 04/12/2018 11 :45 AM [facility] Alanine Aminotransferase 15 7 - 55 U/L 04/12/2018 11: 45 AM [facility] (ALT), [facility] Bilirubin, Total, P <0.2 <=1.2 mg/dL 04/12/2018 11:45 A M [facility] Specimen Anatomical Collection Method Collection Time Receive d Time (Source) Location / / Volume Laterality Blood (Blood, 04/12/2018 11:23 04/12/2018 Venous) AM CDT 11:25 AM CDT Eugene Bunch III, M.D. LAB BLOOD ADD-ON Performing Organization Address City/State/[facility] Code Phon e Number [facility] [phone] [place] [phone] [place] [address] LAB (ABNORMAL) CBC with Differential (04/12/2018 11:23 AM CDT) [facility] Method Time Signature Hemoglobin 2.9 (CL) 13.2 - 04/12/2018 [facility] 16.6 g/dL 11:46 AM [facility] Hematocrit 9.2 (L) 38.3 - 04/12/2018 [facility] 48.6 % 11:45 AM [facility] Erythrocytes 0.95 (L) 4.35 - 04/12/2018 [facility] 5.65 11:45 AM [facility] HEALTH x10(12)/L [facility] MCV 96.8 78.2 - 04/12/2018 [facility] 97.9 fL 11:45 AM [facility] RBC Distrib Width 15.9 (H) 11.8 - 04/12/2018 [facility] 14.5 % 11:45 AM CDT [facility] Platelet Count 197 135 - 317 04/12/2018 [facility] x10(9)/L 11:45 AM CDT [facility] [place] [facility] Leukocytes 10.8 (H) 3.4 - 9.6 04/12/2018 [facility] x10(9)/L 11:45 AM CDT [facility] [place] [facility] Neutrophils 8.96 (H) 1.56 - 04/12/2018 [facility] 6.45 11:45 AM CDT [facility] x10(9)/L [facility] Lymphocytes 1.13 0.95 - 04/12/2018 [facility] 3.07 11:45 AM CDT [facility] x10(9)/L [facility] Monocytes 0.68 0.26 - 04/12/2018 [facility] 0.81 11:45 AM CDT HEALTH x10(9)/L [facility] Eosinophils 0.02 (L) 0.03 - 04/12/2018 [facility] 0.48 11:45 AM CDT [facility] x10(9)/[facility] Basophils 0.01 0.01 - 04/12/2018 [facility] 0.08 11:45 AM CDT [facility] x10(9)/L [facility] Specimen Anatomical Collection Method Collection Time Receive d Time (Source) Location / / Volume Laterality Blood (Blood, 04/12/2018 11:23 04/12/2018 Venous) AM CDT 11:25 AM CDT Eugene Bunch III, M.D. LAB BLOOD ADD-ON Performing Organization Address City/State/[facility] Code Phon e Number [facility] [phone] [address] [place] [facility] documented in this encounter Visit Diagnoses [...] as of this encounter Care Teams Supervisor [employer] Relationship Specialty Start Date End Date Cintia Cobb M.D. PCP - General 02/19/17 02/20/[address] [place] [phone] documented as of this encounter
--- OUTSIDE RECORDS SUMMARY | 2022-08-12 09:22 | XMS_ITS | Encounter Summary ---
:1960 Author Organization [facility] Address [address] [place] [address] Care Team Providers Name Role Phone Cintia Cobb M.D. Primary Care Provider [phone] Encounter Details Date Type Department Care Team [...] documented as of this encounter Care Teams Energy Assistant Relationship Specialty Start Date End Date Cintia Cobb M.D. PCP - General 02/19/17 02/20/[address] [phone] documented as of this encounter
--- OUTSIDE RECORDS SUMMARY | 2022-08-12 09:22 | XMS_ITS | Encounter Summary ---
:1960 Author Organization [facility] Address [address] [place] [address] Care Team Providers Name Role Phone Cintia Cobb M.D. Primary Care Provider [phone] Reason for Referral Outpatient (Routine) - Closed Specialty Diagnoses / Procedures Referred By Contact Refer red To Contact Diagnoses Hemorrhage Gastrointestinal Luis Varghese, [facility] HAKEEM, C.N.P. [address] [place] [address] Referral ID Status Reason Start Date Expiration Date Visits Requ ested Visits Authorized [id number] Closed 04/15/2018 04/15/2019 1 1 Scheduling Instructions [...] Expiration Date Visits Requ ested Visits Authorized [id number] 1 1 Encounter Details Date Type Department Care Team Description 04/12/2018 - [facility] Jess Shelby M.D. [address] [place] [id number] Hemorrhage Gastrointestinal (Primary Dx) ; 04/15/2018 [address], [facility] Luis Varghese APRN, C.N.P. [address] [facility] [place] [address] Gastric Bypass Status [place] [facility] [place] [place] [address] [place] [id number] Social History Tobacco Use Types Packs/Day Years [...] Primary Care Providers: Cintia Cobb M.D. (General) [address] [place] [phone] Primary Care Provider Primary Care Provider Admission Date: 04/12/2018 Discharge Date: 04/15/2018 PRINCIPAL DIAGNOSIS Gastrointestinal hemorrhage Acute blood loss anemia Headache SECONDARY DIAGNOSES Atrial fibrillation status post pacemaker placement Type 2 diabetes-resolved Status post gastric bypass Hypertension Operative Procedures: Scheduled (Monica), Completed (Comp) or Canceled (Can) Case IDs Date Procedure Surgeon Location Status [id number] 04/13/18 ESOPHAGOGASTRODUODENOSCOPY Omar Stone M.D. [facility] Comp No past medical history on file. Past Surgical History: Procedure Laterality Date ??? BYPASS OF STOMACH N/A 11/19/2014 Gastric bypass ??? CARDIAC PACEMAKER PLACEMENT ??? CHONDRECTOMY OF SPINE N/A 02/19/1989 Discectomy ??? CYSTOSCOPY kidney stone ??? ESOPHAGOGASTRODUODENOSCOPY N/A 04/13/2018 Procedure: ESOPHAGOGASTRODUODENOSCOPY; Surgeon: Omar Stone M.D.; Location: [facility] ??? LAPAROSCOPIC ASSISTED [...] Center 06/01/2018 6:30 PM Cintia Cobb M.D. [facility] SEMFei CFERWZ DISCHARGE MEDICATIONS Discharge Medications TAKE [...] COURSE 57-year-old male admitted to hospital through [facility] with report of melena and [...] Everywhere. Acute Upper and Lower Gastrointestinal Bleeding (North Korean)Food Sources of Iron (North Korean)documented in this encounter Medications at Time of [...] 04/14/2018 11:17 AM CDT Spoke w ordering DOG SHOW JUDGE OT order in error. No skilled OT [...] CDT SUBJECTIVE The patient is located in [place] ICU, room 3109. I have seen, evaluated, [...] or assistance. BILLING: No charge. Job ID: [id number] documented in this encounter H&P Notes Luis Varghese APRN, C.NDonna. - 04/12/2018 5:25 PM CDT CHIEF COMPLAINT Black or bloody stools HISTORY OF PRESENT ILLNESS 57-year-old male admitted to hospital through [facility] re-presented with 4-6 day history [...] amount of weight since that time. 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 [...] placement Rhianna hypertension admitted to hospital through [facility] where he presented with complaints of melena on syncope. Hemoglobin was found to be 2.9. Acute active Acute gastrointestinal bleeding. Most recent hemoglobin from February of this year was 10.6. Today 2.9. Patient did receive 2 units of packed red blood cells in [facility]. Also given dose of intravenous [...] CDTAssociated Order(s): UPPER GI ENDOSCOPY [facility] [place] [facility] Patient Name: Noemí Luna Procedure Date: [...] healthy appearing mucosa. This was traversed. The efdrb-fb-vwlxdpx limb was characterized by healthy appearing mucosa. The qoyzstci-vj-xacbeyp limb was not examined as it could [...] disposition, GI bleed Onset Date: 04/12/18 Payor: [facility] / Plan: [facility] [employer] HMO / Product Type: Medicaid HMO / [...] Procedure: ESOPHAGOGASTRODUODENOSCOPY; Surgeon: Omar Stone M.D.; Location: [facility] ??? LAPAROSCOPIC ASSISTED [...] History of Present Illness: Pt went to [facility] ER secondary to falling several days in a row. Determined pt had a GI bleed and was transferred to [place] for Surgery Prior Function / Occupational Profile Level of S[place]: Independent with ADLs and functional transfers Lives [...] upon discharge. Reportedly not allowed back to [facility] due to his behavior. According to nursing, Ed has been behaving here overnight.) Who was present during the interview?: Patient, Spouse, Other (comment) (Spouse, Pipo([phone]-Ed scoulded Pipo for giving out this number, call his primary number/confirmed with Ed [phone]) neighbor was also present due to the fact that Pipo does not drive.) Injection Molding Machine Offbearer Services Used: No Patient Information Primary Caregiver: Self Support System: Immediate family (, Pipo([phone]) Pipo wanted this workers card, although, Ed would not allow this worker to give it to her. Notified Pipo to call and ask for a hospital Rpg Developer at the main number,) Legal Information (Retired) Legal Decision Maker: Self Caregiver Information Caregiver Name: Pipo Caregiver Relationship: Caregiver (should call [phone] first; this number should only be called [...] Communication: Can write, Talks, Understands speaking, Understands [place] Environmental Supports Home Environment: (Ed refused Social [...] the nurses line. He presented to the [facility] with a hemoglobin of 2.9. [...] most of the history. 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 Noemí Luna's nurse regarding his disruptive behavior. Per Renetta, the primary nurse, this patient was refusing to go to CT, was refusing to get out of bed,and was being loud and abusive towards her and his spouse. This calender supervisor along with the hospitalist Jelena and [...] wanted to be called he replied Her [place]. Patient was advised that she had call him Sir out of respect and several minutes were spent trying to convince him that sirwas not intended tameka disrespectful and that in no way was the nurse going to refer to him as her [place]. This patient did not appeared to be joking about wanting to be called this. After much time it was agreed thatthe nurse would referred him is Ed. During the 20 min spent with the patient talking about his complaint, why he needed the CT, and his primary nurse Mr. uLna had to be reminded multiple times to stop referring to his primary nurse as The fat one. Mr. Luna had stated that his left because of the nurse was rude to him and her. also stated the nurse got upset with him when he gently moved the wheelchair with his foot. As a follow-up I contacted his Magali Luna ([phone]). Mrs. Luna stated she left because he [...] the room. The patient demanded that the calender supervisor speak with him about the staff members. He stated that nurse is no longer allowed in my room, and I will yudi this hospital if she comes in. The nurse obtained help from the calender supervisor and provider in dealing with the patients oppositional and demanding behaviors. The PCS and COLLATERAL CLERK had a lengthy discussion with the patient. The patient was assisted down to Radiology, where it took 1 complete hour for him to transfer to the CT scan and back. The patient was rather difficult during that time as well. He was accompanied by the NST. The COLLATERAL CLERK and nurse spoke with the patients , [...] to c/o severe headacheand blurry vision, bobby COLLATERAL CLERK notified and seen patient at bedside, see [...] of blood was complete upon arrival from [facility]. documented in this encounter Plan of Treatment [...] CBC with Differential (04/21/2018 1:35 PM CDT) [facility] Method Time Signature Hemoglobin 8.4 (L) 13.2 - 04/21/2018 [facility] 16.6 g/dL 1:44 PM CDT [facility] Hematocrit 26.6 (L) 38.3 - 04/21/2018 [facility] 48.6 % 1:44 PM CDT [facility] Erythrocytes 2.99 (L) 4.35 - 04/21/2018 [facility] 5.65 1:44 PM CDT HEALTH x10(12)/L [facility] MCV 89.0 78.2 - 04/21/2018 [facility] 97.9 fL 1:44 PM CDT [facility] RBC Distrib Width 15.4 (H) 11.8 - 04/21/2018 [facility] 14.5 % 1:44 PM CDT [facility] Platelet Count 251 135 - 317 04/21/2018 [facility] x10(9)/L 1:44 PM CDT [facility] Leukocytes 8.8 3.4 - 9.6 04/21/2018 [facility] x10(9)/L 1:44 PM CDT [facility] Neutrophils 5.90 1.56 - 04/21/2018 [facility] 6.45 1:44 PM CDT [facility] x10(9)/L [facility] Lymphocytes 1.91 0.95 - 04/21/2018 [facility] 3.07 1:44 PM CDT [facility] x10(9)/L [facility] Monocytes 0.78 0.26 - 04/21/2018 [facility] 0.81 1:44 PM CDT HEALTH x10(9)/L [facility] [employer] [facility] Eosinophils 0.15 0.03 - 04/21/2018 [facility] 0.48 1:44 PM CDT HEALTH x10(9)/L SYSTEM [employer] [facility] Basophils 0.05 0.01 - 04/21/2018 [facility] 0.08 1:44 PM CDT HEALTH x10(9)/L SYSTEM [employer] [facility] Specimen Anatomical Collection Method Collection Time Receive d Time (Source) Location / / Volume Laterality Blood (Blood, 04/21/2018 1:35 PM 04/21/20 18 1:37 Venous) CDT PM CDT Luis Varghese APRN, C.N.P. LAB BLOOD ADD-ON Performing Organization Address City/State/ZIP Code Phon e Number [facility] [address] [place] [address] [place] [facility] (ABNORMAL) CBC with Differential, Blood (04/15/2018 6:13 AM CDT) [facility] gist Method Time Signature Hemoglobin 7.4 (L) 13.2 - 04/15/2018 [facility] 16.6 g/dL 6:28 AM CDT [facility] [place] [facility] Hematocrit 22.8 (L) 38.3 - 04/15/2018 [facility] 48.6 % 6:28 AM T [facility] [place] [facility] Erythrocytes 2.65 (L) 4.35 - 04/15/2018 [facility] 5.65 6:28 AM CDT HEALTH x10(12)/L SYSTEM- [facility] [place] [facility] MCV 86.0 78.2 - 04/15/2018 [facility] 97.9 fL 6:28 AM T [facility] RBC Distrib Width 18.4 (H) 11.8 - 04/15/2018 [facility] 14.5 % 6:28 AM T [facility] [place] [facility] Platelet Count 149 135 - 317 04/15/2018 [facility] x10(9)/L 6:28 AM [facility] [place] [facility] Leukocytes 7.3 3.4 - 9.6 04/15/2018 [facility] x10(9)/L 6:28 AM T [facility] [place] [facility] Neutrophils 5.04 1.56 - 04/15/2018 [facility] 6.45 6:28 AM CDT HEALTH x10(9)/L SYSTEM- [place] [facility] Lymphocytes 1.37 0.95 - 04/15/2018 [facility] 3.07 6:28 AM CDT HE[facility] x10(9)/L SYSTEM- [facility] [place] [facility] Monocytes 0.69 0.26 - 04/15/2018 [facility] 0.81 6:28 AM CDT [facility] x10(9)/L SYSTEM- [place] [facility] Eosinophils 0.16 0.03 - 04/15/2018 [facility] 0.48 6:28 AM CDT [facility] x10(9)/L SYSTEM- [place] [facility] Basophils 0.02 0.01 - 04/15/2018 [facility] 0.08 6:28 AM CDT [facility] x10(9)/L [facility]- [facility] [place] [facility] Specimen Anatomical Collection Method Collection Time Receive d Time (Source) Location / / Volume Laterality Blood (Blood, 04/15/2018 6:13 AM 04/15/20 18 6:23 Venous) CDT AM CDT Luis Varghese APRN, C.N.P. LAB BLOOD ADD-ON Performing Organization Address City/State/ZIP Code Phon e Number [facility] [address] [place] [address] [facility] [facility] (ABNORMAL) Hemoglobin (04/14/2018 4:11 PM CDT) athologist Signature Hemoglobin 7.5 (L) 13.2 - 16.6 04/14/2018 [facility] g/dL 4:33 PM CDT [facility] [place] [facility] Specimen Anatomical Collection Method Collection Time Receive d Time (Source) Location / / Volume Laterality Blood (Blood, 04/14/2018 4:11 PM 04/14/20 18 4:30 Venous) CDT PM CDT Luis Varghese APRN, C.N.P. LAB BLOOD ADD-ON Performing Organization Address City/State/ZIP Code Phon e Number [facility] [address] [facility] [place] [address] [place] [facility] (ABNORMAL) BMP (Basic Metabolic Panel) (04/14/2018 5:55 AM CDT) athologist Signature Potassium, S 3.8 3.6 - 5.2 04/14/2018 [facility] mmol/L 6:49 AM CDT [facility] [place] [facility] Sodium, S 141 135 - 145 04/14/2018 [facility] mmol/L 6:49 AM CDT [facility] [place] [facility] Chloride, S 106 98 - 107 04/14/2018 [facility] mmol/L 6:49 AM CDT [facility] [place] [facility] Bicarbonate, S 27 22 - 29 04/14/2018 [facility] mmol/L 6:49 AM CDT [facility] [place] [facility] Anion Gap 8 7 - 15 04/14/2018 [facility] 6:49 AM [facility] BUN (Blood Urea 34 (H) 8 - 24 04/14/2018 [facility] Nitrogen), S mg/dL 6:49 AM [facility] Creatinine 0.98 0.74 - 04/14/2018 [facility] 1.35 mg/dL 6:49 AM [facility] eGFR-Non 84 >=60 04/14/2018 [facility] Black/ mL/min/BSA 6:49 AM [facility] [place] [facility] Comment: ----ADDITIONAL INFORMATION---- Estimated GFR calculated using the 2009 CKD_EPI creatinine equation. eGFR-Black/ >90 >=60 mL/min/BSA 2017 6:49 AM [facility] Comment: ----ADDITIONAL INFORMATION---- Estimated GFR calculated using the 2009 CKD_EPI creatinine equation. Calcium, Total, S 8.1 (L) 8.6 - 10.0 mg/dL 04/14/2018 6 :49 AM [facility] Glucose, S 149 (H) 70 - 140 mg/dL 04/14/2018 6:49 AM [facility] Specimen Anatomical Collection Method Collection Time Receive d Time (Source) Location / / Volume Laterality Blood (Blood, 04/14/2018 5:55 AM 04/14/20 18 6:10 Venous) CDT AM CDT Luis Varghese APRN, C.N.P. LAB BLOOD ADD-ON Performing Organization Address City/State/ZIP Code Phon e Number [facility] [address] [place] [address] [place] [facility] (ABNORMAL) CBC with Differential, Blood (04/14/2018 5:55 AM CDT) [facility] Method Time Signature Hemoglobin 7.0 (L) 13.2 - 04/14/2018 [facility] 16.6 g/dL 6:13 AM [facility] Hematocrit 21.8 (L) 38.3 - 04/14/2018 [facility] 48.6 % 6:13 AM [facility] LAB Erythrocytes 2.48 (L) 4.35 - 04/14/2018 [facility] 5.65 6:13 AM CDT HEALTH x10(12)/L SYSTEM- [facility] [place] [facility] MCV 87.9 78.2 - 04/14/2018 [facility] 97.9 fL 6:13 AM T [facility] RBC Distrib Width 19.3 (H) 11.8 - 04/14/2018 [facility] 14.5 % 6:13 AM T [facility] LAB Platelet Count 134 (L) 135 - 317 04/14/2018 [facility] x10(9)/L 6:13 AM CDT [facility] LAB Leukocytes 7.3 3.4 - 9.6 04/14/2018 [facility] x10(9)/L 6:13 AM T [facility] LAB Neutrophils 5.26 1.56 - 04/14/2018 [facility] 6.45 6:13 AM CDT HEALTH x10(9)/L [facility] [place] [facility] Lymphocytes 1.34 0.95 - 04/14/2018 [facility] 3.07 6:13 AM CDT [facility] x10(9)/L [facility] [place] [facility] Monocytes 0.63 0.26 - 04/14/2018 [facility] 0.81 6:13 AM CDT [facility] x10(9)/L SYSTEM [place] [facility] Eosinophils 0.09 0.03 - 04/14/2018 [facility] 0.48 6:13 AM CDT [facility]ALTH x10(9)/L [facility] [place] [facility] Basophils 0.01 0.01 - 04/14/2018 [facility] 0.08 6:13 AM CDT [facility] x10(9)/L [facility] LAB Specimen Anatomical Collection Method Collection Time Receive d Time (Source) Location / / Volume Laterality Blood (Blood, 04/14/2018 5:55 AM 04/14/20 18 6:10 Venous) CDT AM CDT Luis Varghese APRN, C.N.P. LAB BLOOD ADD-ON Performing Organization Address City/State/ZIP Code Phon e Number [facility] [address] [place] [address] Head Neck Angiogram with [...] Component Value Ref Test Analysis Performed At [facility] gist Range Method Time Signature PATHOLOGY Patient Name: NOEMÍ LUNA [facility] MR#: [id number] [facility] Submitting Physician: OMAR STONE MD [id number] Specimen #[id number] Performing Lab: ??[facility] ? [address] [place] [id number] Source: Stomach biopsy - R/O - Helicobacter [...] Organization Address City/State/ZIP Code Phon e Number [address] [address] UPPER GI ENDOSCOPY (04/13/2018 7:37 AM CDT) Specimen (Source) Anatomical Location Collection Method / Collectio n Time Received Time / Laterality Volume Narrative This result has an attachment that is no t available. Procedure Note Omar Stone M.D. - 04/13/2018 7:3 7 AM CDT [facility] [place] [facility] Patient Name: Noemí Luna Procedure Date: [...] y appearing mucosa. This was traversed. The uosvm-sq-jckflpd limb wa s characterized by healthy appearing mucosa. The lshowfzc-qc-pnvkj um limb was not examined as it [...] Potassium, S 4.1 3.6 - 5.2 04/13/2018 [facility] mmol/L 6:19 AM [facility] [employer] [facility] Sodium, S 144 135 - 145 04/13/2018 [facility] mmol/L 6:19 AM [facility] [employer] [facility] Chloride, S 108 (H) 98 - 107 04/13/2018 [facility] mmol/L 6:19 AM [facility] [place] [facility] Bicarbonate, S 25 22 - 29 04/13/2018 [facility] mmol/L 6:19 AM [facility] [place] [facility] Anion Gap 11 7 - 15 04/13/2018 [facility] 6:19 AM [facility] [employer] [facility] BUN (Blood Urea 63 (H) 8 - 24 04/13/2018 [facility] Nitrogen), S mg/dL 6:19 AM [facility] [employer] [facility] Creatinine 1.14 0.74 - 04/13/2018 [facility] 1.35 mg/dL 6:19 AM [facility] [place] [facility] eGFR-Non 70 >=60 04/13/2018 [facility] Black/ mL/min/BSA 6:19 AM [facility] [employer] [facility] Comment: ----ADDITIONAL INFORMATION---- Estimated GFR calculated using the 2009 CKD_EPI creatinine equation. eGFR-Black/ 81 >=60 mL/min/BSA 2017 6:[address] [facility] [place] [facility] Comment: ----ADDITIONAL INFORMATION---- Estimated GFR calculated using the 2009 CKD_EPI creatinine equation. Calcium, Total, S 8.3 (L) 8.6 - 10.0 04/13/2018 6:19 AM [facility] mg/dL [facility] [place] [facility] Glucose, S 176 (H) 70 - 140 mg/dL 04/13/2018 6:19 AM [facility] [employer] [facility] Protein, Total, S 4.9 (L) 6.3 - 7.9 g/dL 04/13/2018 6:19 A M [facility] Albumin, S 3.3 (L) 3.5 - 5.0 g/dL 04/13/2018 6:19 AM [facility] Aspartate 12 8 - 48 U/L 04/13/2018 6:19 AM [facility] C Aminotransferase (AST), S [facility] LAB Alkaline Phosphatase, S 41 (L) 45 - 115 U/L 04/13/2018 6: 19 AM [facility] Alanine Aminotransferase 13 7 - 55 U/L 04/13/2018 6:1 9 AM [facility] (ALT), S [facility] LAB Bilirubin, Total, S 0.7 <=1.2 mg/dL 04/13/2018 6:19 AM [facility] Specimen Anatomical Collection Method Collection Time Receive d Time (Source) Location / / Volume Laterality Blood (Blood, 04/13/2018 5:24 AM 04/13/20 18 5:34 Venous) CDT AM CDT Jess Hernandez M.D. LAB BLOOD ADD-ON Performing Organization Address City/State/ZIP Code Phon e Number [place] [id number] [place] [address] [place] [facility] (ABNORMAL) CBC without Differential (04/13/2018 5:23 AM CDT) [facility] Method Time Signature Hemoglobin 7.7 (L) 13.2 - 04/13/2018 [facility] 16.6 g/dL 5:37 AM [facility] Hematocrit 23.3 (L) 38.3 - 04/13/2018 [facility] 48.6 % 5:37 AM [facility] LAB Erythrocytes 2.69 (L) 4.35 - 04/13/2018 [facility] 5.65 5:37 AM [facility] HEALTH x10(12)/L [facility] LAB MCV 86.6 78.2 - 04/13/2018 [facility] 97.9 fL 5:37 AM [facility] RBC Distrib Width 18.6 (H) 11.8 - 04/13/2018 [facility] 14.5 % 5:37 AM CDT [facility] Platelet Count 147 135 - 317 04/13/2018 [facility] x10(9)/L 5:37 AM CDT [facility] [place] [facility] Leukocytes 9.4 3.4 - 9.6 04/13/2018 [facility] x10(9)/L 5:37 AM CDT [facility] [place] [facility] Specimen Anatomical Collection Method Collection Time Receive d Time (Source) Location / / Volume Laterality Blood (Blood, 04/13/2018 5:23 AM 04/13/20 18 5:34 Venous) CDT AM CDT Jess Hernandez M.D. LAB BLOOD ADD-ON Performing Organization Address City/State/ZIP Code Phon e Number [facility] [address] [facility] [place] [address] [place] [facility] Transfuse Red Blood Cells (04/13/2018 [...] Hemoglobin 5.6 (CL) 13.2 - 16.6 04/13/2018 [facility] g/dL 12:44 AM CDT [facility] [place] [facility] Specimen Anatomical Collection Method Collection Time Receive d Time (Source) Location / / Volume Laterality Blood (Blood, 04/13/2018 12:33 04/13/2018 Venous) AM CDT 12:38 AM CDT Luis Varghese APRN, C.N.P. LAB BLOOD ADD-ON Performing Organization Address City/State/ZIP Code Phon e Number [facility] [address] [place] [address] [place] [facility] Transfuse Red Blood Cells (04/12/2018 9:35 PM CDT) Lusi Varghese APRN, C.N.P. BLOOD TRANSFUSION ORDER DESEAN Transfuse Red Blood Cells : , 1 Units (04/12/2018 9:35 PM CDT) Luis Varghese APRN, C.N.P. BLOOD TRANSFUSION ORDER DESEAN Type and Screen (with reflex Antibody ID) (04/12/2018 5:52 PM CDT) Patholo gist Method Time Signature ABO Group A 04/12/2018 [facility] 6:15 PM CDT [facility] [place] [facility] Rh Type POS 04/12/2018 [facility] 6:15 PM CDT [facility] [place] [facility] Antibody Screen NEG 04/12/2018 [facility] 6:28 PM CDT [facility] [employer] [facility] Type & Screen 04/15/2018 04/12/2018 [facility] Expiration 23:59 6:28 PM CDT [facility] [place] [facility] ELXM Eligible Y 04/12/2018 [facility] 6:28 PM CDT [facility] [place] [facility] Specimen Anatomical Collection Method Collection Time Receive d Time (Source) Location / / Volume Laterality Blood (Blood, 04/12/2018 5:52 PM 04/12/20 18 5:56 Venous) CDT PM CDT Omar Stone M.D. LAB BLOOD BANK TEST ORDERABL ES Performing Organization Address City/State/ZIP Code Phon e Number [facility] [address] [place] [address] [place] [facility] (ABNORMAL) Hemoglobin (04/12/2018 4:50 PM CDT) P athologist Signature Hemoglobin 5.3 (CL) 13.2 - 16.6 04/12/2018 [facility] g/dL 5:02 PM CDT [facility] [place] [facility] Specimen Anatomical Collection Method Collection Time Receive d Time (Source) Location / / Volume Laterality Blood (Blood, 04/12/2018 4:50 PM 04/12/20 18 4:54 Venous) CDT PM CDT Meme Narvaez APRNP. LAB BLOOD ADD-ON Performing Organization Address City/State/ZIP Code Phon e Number [facility] [address] [place] [address] LAB documented in this encounter Visit Diagnoses [...] solution - ADS Ov erride Pull (COMPLETED) 6258 (Given - Provider: Myriam Garcia(R)(CT), RLainey(R)) Starting on Thu04/13/18 at 1944, For 1 dose, Created by xuan delatorre documented in this encounter Additional Health Concerns Assessment Noted Time PHQ-9 Depression Total Score: 18 02/14/2013 9:53 AM CD T documented as of this encounter Care Teams System Sales Consultant Relationship Specialty Start Date End Date Cintia Cobb M.D. PCP - General 02/19/17 02/20/[address] [place] [phone] documented as of this encounter
--- OUTSIDE RECORDS SUMMARY | 2022-08-12 09:22 | XMS_ITS | Encounter Summary ---
:1960 [facility] Address [address] [place] [address] Care Team Providers Name Role Phone Cintia Cobb M.D. Primary Care Provider [phone] Reason for Visit Reason Onset Date Comments Post Hospital Follow-up 04/16/2018 Encounter Details Date Type Department Care Team Description 04/16/2018 Clinical Communication Department of [facility] Family MedicineLaura R.N. Follow-up [address], in [address] [address] [facility] [phone] [place], [place] (Work) [phone] Social History Tobacco Use [...] Primary Care Providers: Cintia Cobb M.D. (General) [address] [place] [phone] Primary Care Provider Primary Care Provider ?? [...] documented as of this encounter Care Teams Seismographer Relationship Specialty Start Date End Date Cintia Cobb M.D. PCP - General 02/19/17 02/20/[address] [phone] documented as of this encounter
--- OUTSIDE RECORDS SUMMARY | 2022-08-12 09:22 | XMS_ITS | Encounter Summary ---
:1960 Author Organization [facility] Address [address] [place] [address] Care Team Providers Name Role Phone Cintia Cobb M.D. Primary Care Provider [phone] Encounter Details Date Type Department Care Team Description 04/16/2018 Clinical Communication [facility] Jose Daniel Piper M.D. [address] [address] [place], [place] [phone] (Work) [phone] Social History Tobacco Use Types Packs/Day Years Used Date Smoking Tobacco: Never Smokeless Tobacco: Never Alcohol Use Standard Drinks/Week Comments No 0 (1 standard drink = 0.6 oz pure alcoho l) Sex Assigned at Date Recorded Not on file documented as of this encounter Miscellaneous Notes Telephone Encounter - Suzie Hurt - 04/16/2018 12:39 PM CDT Renetta from [facility] is calling needing a Quantity Limit Exemption for the Omeprazole 20mg. Please reach out to [facility] at [phone]. Thank you! documented in this encounter Plan of Treatment Not on filedocumented as of this encounter Visit Diagnoses Not on filedocumented in this encounter Additional Health Concerns Assessment Noted Time PHQ-9 Depression Total Score: 18 02/14/2013 9:53 AM CD T documented as of this encounter Care Teams Chain Pegger Relationship Specialty Start Date End Date Cintia Cobb M.D. PCP - General 02/19/17 02/20/[address] [place] [phone] documented as of this encounter
--- OUTSIDE RECORDS SUMMARY | 2022-08-12 09:22 | XMS_ITS | Encounter Summary ---
:1960 Author Organization [facility] Address [address] [place] [address] Care Team Providers Name Role Phone Cintia Cobb M.D. Primary Care Provider Encounter Details Date Type Department Care Team Description 04/12/2018 Nurse Triage Department of [facility] Kathrin John R.N. Medicine, [facility], in [address] [place], [place] [address] [place] [phone] [place] [address] [phone] Social History Tobacco Use Types Packs/Day Years [...] documented as of this encounter Care Teams Wrapper Counter Relationship Specialty Start Date End Date Cintia Cobb M.D. PCP - General 02/19/17 02/20/[id number] [phone] documented as of this encounter
--- OUTSIDE RECORDS SUMMARY | 2022-08-12 09:22 | XMS_ITS | Encounter Summary ---
:1960 Author Organization [facility] Address [address] [place] [address] Care Team Providers Name Role Phone Cintia Cobb M.D. Primary Care Provider [phone] Reason for Visit Auth/Cert Specialty Diagnoses / Procedures Referred By Contact Refer red To Contact Diagnoses Hemorrhage Gastrointestinal Anemia Procedures NA Referral ID Status Reason Start Date Expiration Date Visits Requ ested Visits Authorized [id number] 1 1 Encounter Details Date Type Department Care Team Description 04/13/2018 Surgery Department of Omar Stone TRODUODENOSCOPY Gastroenterology in [place] M.[address] [phone] Social History Tobacco Use Types Packs/Day Years [...] C.NEricka Primary Care Providers: Cintia Cobb M.D. ([facility]) [address] [place] [phone] Primary Care Provider Primary Care Provider Admission Date: 04/12/2018 Discharge Date: 04/15/2018 PRINCIPAL DIAGNOSIS Gastrointestinal hemorrhage Acute blood loss anemia Headache SECONDARY DIAGNOSES Atrial fibrillation status post pacemaker placement Type 2 diabetes-resolved Status post gastric bypass Hypertension Operative Procedures: Scheduled (Monica), Completed (Comp) or Canceled (Can) Case IDs Date Procedure Surgeon Location Status [id number] 04/13/18 ESOPHAGOGASTRODUODENOSCOPY Omar Stone M.D. [facility] Comp No past medical history on file. Past Surgical History: Procedure Laterality Date ??? BYPASS OF STOMACH N/A 11/19/2014 Gastric bypass ??? CARDIAC PACEMAKER PLACEMENT ??? CHONDRECTOMY OF SPINE N/A 02/19/1989 Discectomy ??? CYSTOSCOPY kidney stone ??? ESOPHAGOGASTRODUODENOSCOPY N/A 04/13/2018 Procedure: ESOPHAGOGASTRODUODENOSCOPY; Surgeon: Omar Stone M.D.; Location: [facility] GI LAB ??? LAPAROSCOPIC ASSISTED [...] COURSE 57-year-old male admitted to hospital through [place] [facility] with report of melena and [...] Everywhere. Acute Upper and Lower Gastrointestinal Bleeding (Greenlandic)Food Sources of Iron (Greenlandic)documented in this encounter Medications at Time of [...] 04/14/2018 11:17 AM CDT Spoke w ordering MEDIA ACCOUNT EXECUTIVE OT order in error. No skilled OT [...] CDT SUBJECTIVE The patient is located in [facility], room 3109. I have seen, evaluated, [...] or assistance. BILLING: No charge. Job ID: [id number] documented in this encounter H&P Notes Luis Varghese APRN, C.N.P. - 04/12/2018 5:25 PM CDT CHIEF COMPLAINT Black or bloody stools HISTORY OF PRESENT ILLNESS 57-year-old male admitted to hospital through [place] [facility] re-presented with 4-6 day history [...] amount of weight since that time. 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 Hemoglobin was found to be 2.9. Acute active Acute gastrointestinal bleeding. Most recent hemoglobin from February of this year was 10.6. Today 2.9. Patient did receive 2 units of packed red blood cells in [place] emergency department. Also given dose of intravenous [...] 7:37 AM CDTAssociated Order(s): UPPER GI ENDOSCOPY [facility] [place] [facility] Patient Name: Ed Jeremy Procedure Date: [...] healthy appearing mucosa. This was traversed. The eyngc-en-zpwmuzg limb was characterized by healthy appearing mucosa. The teweixlz-jx-atakasc limb was not examined as it could [...] disposition, GI bleed Onset Date: 04/12/18 Payor: [facility] [place] CARE / Plan: [facility] BLUE PLUS HMO / Product Type: Medicaid [...] Procedure: ESOPHAGOGASTRODUODENOSCOPY; Surgeon: Omar Stone M.D.; Location: [facility] GI LAB ??? LAPAROSCOPIC ASSISTED [...] History of Present Illness: Pt went to [place] ER secondary to falling several days in a row. Determined pt had a GI bleed and was transferred to [place] for Surgery Prior Function / Occupational Profile Level of [place]: Independent with ADLs and functional transfers Lives [...] upon discharge. Reportedly not allowed back to [facility] due to his behavior. According to nursing, Ed has been behaving here overnight.) Who was present during the interview?: Patient, Spouse, Other (comment) (Spouse, Maddisona([phone]-Ed scoulded Pipo for giving out this number, call his primary number/confirmed with Ed [phone]) neighbor was also present due to the fact that Pipo does not drive.) Rn Clinical Resource Services Used: No Patient Information Primary Caregiver: Self Support System: Immediate family (Pipo([phone]) Pipo wanted this workers card, although, Ed would not allow this worker to give it to her. Notified Pipo to call and ask for a hospital Chief Jailer at the main number,) Legal Information (Retired) Legal Decision Maker: Self Caregiver Information Caregiver Name: Pipo Caregiver Relationship: Caregiver (should call [phone] first; this number should only be called [...] Communication: Can write, Talks, Understands speaking, Understands Greenlandic Environmental Supports Home Environment: (Ed refused Social [...] any support regarding discharge planning. Pipo requested [facility]'s card, Ed would not allow her [...] as he does not trust social workers. [facility] honored Ed's request to leave the room. Signed by: Maria Guadalupe Vela 04/13/2018 Omar Sotne M.D. - 04/12/2018 6:08 PM CDTAssociated Order(s): [...] the nurses line. He presented to the [place] [facility] with a hemoglobin of 2.9. [...] most of the history. 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 Per Renetta, the primary nurse, this patient was refusing to go to [place], was refusing to get out of bed,and was being loud and abusive towards her and his spouse. This pathology supervisor along with the hospitalist Jelena and [...] wanted to be called he replied Her [place]. Patient was advised that she had call him Sir out of respect and several minutes were spent trying to convince him that sirwas not intended tameka disrespectful and that in no way was the nurse going to refer to him as her [place]. This patient did not appeared to be [...] a follow-up I contacted his Magali Luna ([phone]). Mrs. Luna stated she left because he [...] the room. The patient demanded that the pathology supervisor speak with him about the staff members. He stated that nurse is no longer allowed in my room, and I will yudi this hospital if she comes in. The nurse obtained help from the pathology supervisor and provider in dealing with the patients oppositional and demanding behaviors. The PCS and PATTERN KEEPER had a lengthy discussion with the patient. The patient was assisted down to Radiology, where it took 1 complete hour for him to transfer to the CT scan and back. The patient was rather difficult during that time as well. He was accompanied by the NST. The PATTERN KEEPER and nurse spoke with the patients , [...] to c/o severe headacheand blurry vision, bobby PATTERN KEEPER notified and seen patient at bedside, see [...] of blood was complete upon arrival from [place]. documented in this encounter Plan of Treatment [...] CBC with Differential (04/21/2018 1:35 PM CDT) [facility] Time Signature Hemoglobin 8.4 (L) 13.2 - 04/21/2018 [facility] 16.6 g/dL 1:44 PM CDT [facility] Hematocrit 26.6 (L) 38.3 - 04/21/2018 [facility] 48.6 % 1:44 PM CDT [facility] Erythrocytes 2.99 (L) 4.35 - 04/21/2018 [facility] 5.65 1:44 PM CDT [facility] x10(12)/L [facility] MCV 89.0 78.2 - 04/21/2018 [facility] 97.9 fL 1:44 PM CDT [facility] Side.Cr LAB RBC Distrib Width 15.4 (H) 11.8 - 04/21/2018 [facility] 14.5 % 1:44 PM CDT [facility] Platelet Count 251 135 - 317 04/21/2018 [facility] x10(9)/L 1:44 PM CDT [facility] LAB Leukocytes 8.8 3.4 - 9.6 04/21/2018 [facility] x10(9)/L 1:44 PM CDT [facility] LAB Neutrophils 5.90 1.56 - 04/21/2018 [facility] 6.45 1:44 PM CDT HEALTH x10(9)/L [facility] LAB Lymphocytes 1.91 0.95 - 04/21/2018 [facility] 3.07 1:44 PM CDT HEALTH x10(9)/L [facility] LAB Monocytes 0.78 0.26 - 04/21/2018 [facility] 0.81 1:44 PM CDT HEALTH x10(9)/L [facility] LAB Eosinophils 0.15 0.03 - 04/21/2018 [facility] 0.48 1:44 PM CDT HEALTH x10(9)/L [facility] Basophils 0.05 0.01 - 04/21/2018 [facility] 0.08 1:44 PM CDT HEALTH x10(9)/L [facility] LAB Specimen Anatomical Collection Method Collection Time Receive d Time (Source) Location / / Volume Laterality Blood (Blood, 04/21/2018 1:35 PM 04/21/20 18 1:37 Venous) CDT PM CDT Luis Varghese APRN, C.N.P. LAB BLOOD ADD-ON Performing Organization Address City/State/ZIP Code Phon e Number [facility]- [address] [place] [id number] [place] LAB (ABNORMAL) CBC with Differential, Blood (04/15/2018 6:13 AM CDT) [facility] Method Time Signature Hemoglobin 7.4 (L) 13.2 - 04/15/2018 [facility] 16.6 g/dL 6:28 AM CDT [facility] [place] [facility] Hematocrit 22.8 (L) 38.3 - 04/15/2018 [facility] 48.6 % 6:28 AM CDT [facility] [place] [facility] Erythrocytes 2.65 (L) 4.35 - 04/15/2018 [facility] 5.65 6:28 AM CDT HEALTH x10(12)/L [facility] [place] [facility] MCV 86.0 78.2 - 04/15/2018 [facility] 97.9 fL 6:28 AM CDT [facility] [place] [facility] RBC Distrib Width 18.4 (H) 11.8 - 04/15/2018 [facility] 14.5 % 6:28 AM CDT [facility] [place] [facility] Platelet Count 149 135 - 317 04/15/2018 [facility] x10(9)/L 6:28 AM T [facility] [place] [facility] Leukocytes 7.3 3.4 - 9.6 04/15/2018 [facility] x10(9)/L 6:28 AM CDT [facility] [place] [facility] Neutrophils 5.04 1.56 - 04/15/2018 [facility] 6.45 6:28 AM CDT HEALTH x10(9)/L [facility] [place] [facility] Lymphocytes 1.37 0.95 - 04/15/2018 [facility] 3.07 6:28 AM CDT HEALTH x10(9)/L [facility] [place] [facility] Monocytes 0.69 0.26 - 04/15/2018 [facility] 0.81 6:28 AM CDT [facility] x10(9)/L [facility] [place] [facility] Eosinophils 0.16 0.03 - 04/15/2018 [facility] 0.48 6:28 AM CDT [facility] x10(9)/L [facility] [place] [facility] Basophils 0.02 0.01 - 04/15/2018 [facility] 0.08 6:28 AM CDT [facility] x10(9)/L [facility] [place] [facility] Specimen Anatomical Collection Method Collection Time Receive d Time (Source) Location / / Volume Laterality Blood (Blood, 04/15/2018 6:13 AM 04/15/20 18 6:23 Venous) CDT AM CDT Luis Varghese APRN, C.N.P. LAB BLOOD ADD-ON Performing Organization Address City/State/ZIP Code Phon e Number [facility] [address] [place] [address] [place] [facility] (ABNORMAL) Hemoglobin (04/14/2018 4:11 PM CDT) P athologist Signature Hemoglobin 7.5 (L) 13.2 - 16.6 04/14/2018 [facility] g/dL 4:33 PM CDT [facility] Specimen Anatomical Collection Method Collection Time Receive d Time (Source) Location / / Volume Laterality Blood (Blood, 04/14/2018 4:11 PM 04/14/20 18 4:30 Venous) CDT PM CDT Luis Varghese APRN, C.N.P. LAB BLOOD ADD-ON Performing Organization Address City/State/ZIP Code Phon e Number [facility] [address] [place] [address] [place] [facility] (ABNORMAL) BMP (Basic Metabolic Panel) (04/14/2018 5:55 AM CDT) athologist Signature Potassium, S 3.8 3.6 - 5.2 04/14/2018 [facility] mmol/L 6:49 AM [facility] Sodium, S 141 135 - 145 04/14/2018 [facility] mmol/L 6:49 AM [facility] Chloride, S 106 98 - 107 04/14/2018 [facility] mmol/L 6:49 AM [facility] Bicarbonate, S 27 22 - 29 04/14/2018 [facility] mmol/L 6:49 AM [facility] Anion Gap 8 7 - 15 04/14/2018 [facility] 6:49 AM [facility] BUN (Blood Urea 34 (H) 8 - 24 04/14/2018 [facility] Nitrogen), S mg/dL 6:49 AM [facility] Creatinine 0.98 0.74 - 04/14/2018 [facility] 1.35 mg/dL 6:49 AM [facility] eGFR-Non 84 >=60 04/14/2018 [facility] Black/ mL/min/BSA 6:49 AM [facility] [place] [facility] Comment: ----ADDITIONAL INFORMATION---- Estimated GFR calculated using the 2009 CKD_EPI creatinine equation. eGFR-Black/ >90 >=60 mL/min/BSA 2017 6:49 AM [facility] Comment: ----ADDITIONAL INFORMATION---- Estimated GFR calculated using the 2009 CKD_EPI creatinine equation. Calcium, Total, S 8.1 (L) 8.6 - 10.0 mg/dL 04/14/2018 6 :49 AM [facility] [place] [facility] Glucose, S 149 (H) 70 - 140 mg/dL 04/14/2018 6:49 AM [facility] LAB Specimen Anatomical Collection Method Collection Time Receive d Time (Source) Location / / Volume Laterality Blood (Blood, 04/14/2018 5:55 AM 04/14/20 18 6:10 Venous) CDT AM CDT Kelvin Narvaez APRNNEricka LAB BLOOD ADD-ON Performing Organization Address City/State/ZIP Code Phon e Number [facility] [address] [place] [address] [place] [facility] (ABNORMAL) CBC with Differential, Blood (04/14/2018 5:55 AM CDT) [facility] Method Time Signature Hemoglobin 7.0 (L) 13.2 - 04/14/2018 [facility] 16.6 g/dL 6:13 AM [facility] Hematocrit 21.8 (L) 38.3 - 04/14/2018 [facility] 48.6 % 6:13 AM [facility] Erythrocytes 2.48 (L) 4.35 - 04/14/2018 [facility] 5.65 6:13 AM T HEALTH x10(12)/L [facility] [place] [facility] MCV 87.9 78.2 - 04/14/2018 [facility] 97.9 fL 6:13 AM [facility] RBC Distrib Width 19.3 (H) 11.8 - 04/14/2018 [facility] 14.5 % 6:13 AM [facility] Platelet Count 134 (L) 135 - 317 04/14/2018 [facility] x10(9)/L 6:13 AM [facility] Leukocytes 7.3 3.4 - 9.6 04/14/2018 [facility] x10(9)/L 6:13 AM [facility] Neutrophils 5.26 1.56 - 04/14/2018 [facility] 6.45 6:13 AM [facility] x10(9)/L [facility] [place] [facility] Lymphocytes 1.34 0.95 - 04/14/2018 [facility] 3.07 6:13 AM [facility] x10(9)/L [facility] [place] [facility] Monocytes 0.63 0.26 - 04/14/2018 [facility] 0.81 6:13 AM CDT HEALTH x10(9)/L [facility] [place] [facility] Eosinophils 0.09 0.03 - 04/14/2018 [facility] 0.48 6:13 AM CDT HEALTH x10(9)/L [facility] [place] [facility] Basophils 0.01 0.01 - 04/14/2018 [facility] 0.08 6:13 AM CDT HEALTH x10(9)/L [facility] [place] [facility] Specimen Anatomical Collection Method Collection Time Receive d Time (Source) Location / / Volume Laterality Blood (Blood, 04/14/2018 5:55 AM 04/14/20 18 6:10 Venous) CDT AM CDT Kelvin Narvaez APRNNPiliPPili LAB BLOOD ADD-ON Performing Organization Address City/State/ZIP Code Phon e Number [facility] [address] [facility] [address] Head Neck Angiogram with [...] of acute infarct. Luis Varghese APRN C.N.P. [facility] CT PROCEDURES Pathology Services (04/13/2018 7:50 AM CDT) Component Value Ref Test Analysis Performed At [facility] Range Method Time Signature PATHOLOGY Patient Name: NOEMÍ LUNA [facility] MR#: [id number] [facility] Submitting Physician: OMAR STONE MD [id number] Specimen #[id number] Performing Lab: ??[facility] ? [address] [place] [id number] Source: Stomach biopsy - R/O - Helicobacter [...] Code Phon e Number SELENE HAMLIN [address] [facility] [place] [address] UPPER GI ENDOSCOPY (04/13/2018 7:37 AM CDT) Specimen (Source) Anatomical Location Collection Method / Collectio n Time Received Time / Laterality Volume Narrative This result has an attachment that is no t available. Procedure Note Omar Stone M.D. - 04/13/2018 7:3 7 AM CDT [facility] [place] [facility] Patient Name: Ed Luna Procedure Date: [...] y appearing mucosa. This was traversed. The ebnzo-lg-eoizcke limb wa s characterized by healthy appearing mucosa. The pcutujjz-zb-yxesz um limb was not examined as it [...] Potassium, S 4.1 3.6 - 5.2 04/13/2018 [facility] mmol/L 6:19 AM [facility] [place] [facility] Sodium, S 144 135 - 145 04/13/2018 [facility] mmol/L 6:19 AM [facility] [place] [facility] Chloride, S 108 (H) 98 - 107 04/13/2018 [facility] mmol/L 6:19 AM [facility] [place] [facility] Bicarbonate, S 25 22 - 29 04/13/2018 [facility] mmol/L 6:19 AM [facility] [place] [facility] Anion Gap 11 7 - 15 04/13/2018 [facility] 6:19 AM [facility] [place] [facility] BUN (Blood Urea 63 (H) 8 - 24 04/13/2018 [facility] Nitrogen), S mg/dL 6:19 AM [facility] Creatinine 1.14 0.74 - 04/13/2018 [facility] 1.35 mg/dL 6:19 AM [facility] eGFR-Non 70 >=60 04/13/2018 [facility] Black/ mL/min/BSA 6:19 AM [facility] LAB Comment: ----ADDITIONAL INFORMATION---- Estimated GFR calculated using the 2009 CKD_EPI creatinine equation. eGFR-Black/ 81 >=60 mL/min/BSA 2017 6:19 AM [facility] Comment: ----ADDITIONAL INFORMATION---- Estimated GFR calculated using the 2009 CKD_EPI creatinine equation. Calcium, Total, S 8.3 (L) 8.6 - 10.0 04/13/2018 6:19 AM [facility] mg/dL [facility] Glucose, S 176 (H) 70 - 140 mg/dL 04/13/2018 6:19 AM [facility] Protein, Total, S 4.9 (L) 6.3 - 7.9 g/dL 04/13/2018 6:19 A M [facility] Albumin, S 3.3 (L) 3.5 - 5.0 g/dL 04/13/2018 6:19 AM [facility] Aspartate 12 8 - 48 U/L 04/13/2018 6:19 AM [facility] ([facility]), S [facility] Alkaline Phosphatase, S 41 (L) 45 - 115 U/L 04/13/2018 6: 19 AM [facility] Alanine Aminotransferase 13 7 - 55 U/L 04/13/2018 6:1 9 AM [facility] (ALT), S [facility] Bilirubin, Total, S 0.7 <=1.2 mg/dL 04/13/2018 6:19 AM [facility] Specimen Anatomical Collection Method Collection Time Receive d Time (Source) Location / / Volume Laterality Blood (Blood, 04/13/2018 5:24 AM 04/13/20 18 5:34 Venous) CDT AM CDT Jess Hernandez M.D. LAB BLOOD ADD-ON Performing Organization Address City/State/ZIP Code Phon e Number [facility] [place] [address] [place] [facility] (ABNORMAL) CBC without Differential (04/13/2018 5:23 AM CDT) [facility] Method Time Signature Hemoglobin 7.7 (L) 13.2 - 04/13/2018 [facility] 16.6 g/dL 5:37 AM CDT [facility] Hematocrit 23.3 (L) 38.3 - 04/13/2018 [facility] 48.6 % 5:37 AM CDT [facility] Erythrocytes 2.69 (L) 4.35 - 04/13/2018 [facility] 5.65 5:37 AM CDT [facility] x10(12)/L [facility] MCV 86.6 78.2 - 04/13/2018 [facility] 97.9 fL 5:37 AM CDT [facility] RBC Distrib Width 18.6 (H) 11.8 - 04/13/2018 [facility] 14.5 % 5:37 AM T [facility] Platelet Count 147 135 - 317 04/13/2018 [facility] x10(9)/L 5:37 AM T [facility] Leukocytes 9.4 3.4 - 9.6 04/13/2018 [facility] x10(9)/L 5:37 AM T [facility] Specimen Anatomical Collection Method Collection Time Receive d Time (Source) Location / / Volume Laterality Blood (Blood, 04/13/2018 5:23 AM 04/13/20 18 5:34 Venous) CDT AM CDT Jess Hernandez M.D. LAB BLOOD ADD-ON Performing Organization Address City/State/ZIP Code Phon e Number [facility] [place] [address] [place] [facility] Transfuse Red Blood Cells (04/13/2018 [...] Hemoglobin 5.6 (CL) 13.2 - 16.6 04/13/2018 [facility] g/dL 12:44 AM CDT [facility] [place] [facility] Specimen Anatomical Collection Method Collection Time Receive d Time (Source) Location / / Volume Laterality Blood (Blood, 04/13/2018 12:33 04/13/2018 Venous) AM CDT 12:38 AM CDT Luis Varghese APRN, C.N.P. LAB BLOOD ADD-ON Performing Organization Address City/State/ZIP Code Phon e Number [facility] [address] [place] [address] [place] [facility] Transfuse Red Blood Cells (04/12/2018 9:35 PM CDT) Luis Varghese APRN, C.N.P. BLOOD TRANSFUSION ORDER DESEAN Transfuse Red Blood Cells : , 1 Units (04/12/2018 9:35 PM CDT) Luis Varghese APRN, C.N.P. BLOOD TRANSFUSION ORDER DESEAN Type and Screen (with reflex Antibody ID) (04/12/2018 5:52 PM CDT) [facility] Method Time Signature ABO Group A 04/12/2018 [facility] 6:15 PM CDT [facility] [place] [facility] Rh Type POS 04/12/2018 [facility] 6:15 PM CDT [facility] [place] [facility] Antibody Screen NEG 04/12/2018 [facility] 6:28 PM CDT [facility] [place] [facility] Type & Screen 04/15/2018 04/12/2018 [facility] Expiration 23:59 6:28 PM CDT [facility] [place] [facility] ELXM Eligible Y 04/12/2018 [facility] 6:28 PM CDT [facility] Specimen Anatomical Collection Method Collection Time Receive d Time (Source) Location / / Volume Laterality Blood (Blood, 04/12/2018 5:52 PM 04/12/20 18 5:56 Venous) CDT PM CDT Omar Stone M.D. LAB BLOOD BANK TEST ORDERABL ES Performing Organization Address City/State/ZIP Code Phon e Number [facility] [address] [place] [facility] (ABNORMAL) Hemoglobin (04/12/2018 4:50 PM CDT) P athologist Signature Hemoglobin 5.3 (CL) 13.2 - 16.6 04/12/2018 [facility] g/dL 5:02 PM CDT [facility] Specimen Anatomical Collection Method Collection Time Receive d Time (Source) Location / / Volume Laterality Blood (Blood, 04/12/2018 4:50 PM 04/12/20 18 4:54 Venous) CDT PM CDT Luis Varghese APRN, C.N.P. LAB BLOOD ADD-ON Performing Organization Address City/State/ZIP Code Phon e Number [facility] [address] [facility] documented in this encounter Visit Diagnoses [...] as of this encounter Care Teams State Archivist Relationship Specialty Start Date End Date Cintia Cobb M.D. PCP - General 02/19/17 02/20/[address] [place] [phone] documented as of this encounter
--- OUTSIDE RECORDS SUMMARY | 2022-08-12 09:23 | XMS_ITS | Encounter Summary ---
:1960 Author Organization [facility] Address [address] [place] [address] Care Team Providers Name Role Phone Cintia Cobb M.D. Primary Care Provider Reason for Referral Outpatient (Routine) - Closed Specialty Diagnoses / Procedures Referred By Contact Refer red To Contact Neurology Diagnoses Neuropathy Peripheral [facility] Piper M.D. [address] [place] [phone] Referral ID Status Reason Start Date Expiration Date Visits V isits Requested Authorized [id number] Closed Specialty 12/24/2017 2018 1 1 Services Required Encounter Details Date Type Department Care Team Description 12/24/2017 Orders Only Department of [facility] Fei Cobb Peripheral Medicine, Jose Daniel Piper M.D. (Primary Dx) [facility], [address] [address] [place], [place] [phone] (W ork) [address] [phone] Social History Tobacco Use Types Packs/Day Years Used Date Smoking Tobacco: Never Smokeless Tobacco: Never Alcohol Use Standard Drinks/Week Comments No 0 (1 standard drink = 0.6 oz pure alcoho l) Sex Assigned at Date Recorded Not on file documented as of this encounter Plan of Treatment Scheduled Referrals Name Type Priority Associated Diagnoses Order S [facility] Neurology - General Outpatient Referral Routine Neuropathy E xpected: consult (clinic) Peripheral 12/24/2017 (Approximate), Expires: 12/24/2020 documented as of this encounter Visit Diagnoses Diagnosis Neuropathy Peripheral - Primary documented in this encounter Additional Health Concerns Assessment Noted Time PHQ-9 Depression Total Score: 18 02/14/2013 9:53 AM CD T documented as of this encounter Care Teams Ebd Teacher Relationship Specialty Start Date End Date Cintia Cobb M.D. PCP - General 02/19/17 02/20/[address] [place] [phone] documented as of this encounter
--- OUTSIDE RECORDS SUMMARY | 2022-08-12 09:23 | XMS_ITS | Encounter Summary ---
:1960 Author Organization [facility] Address [address] [place] [address] Care Team Providers Name Role Phone Cintia Cobb M.D. Primary Care Provider [phone] Encounter Details Date Type Department Care Team Description 09/29/2017 Orders Only Department of [facility] Angélica Cobb Medicine, Jose Daniel Piper M.D. Clinic, in [address] [address] [place], [place] [phone] (W ork) [address] [phone] Social History Tobacco Use Types Packs/Day Years [...] as of this encounter Care Teams Environmental Services Project Manager Relationship Specialty Start Date End Date Cintia Cobb M.D. PCP - General 02/19/17 02/20/[address] [place] [phone] documented as of this encounter
--- OUTSIDE RECORDS SUMMARY | 2022-08-12 09:23 | XMS_ITS | Encounter Summary ---
:1960 Author Organization [facility] Address [address] [place] [address] Care Team Providers Name Role Phone Cintia Cobb M.D. Primary Care Provider [phone] Encounter Details Date Type Department Care Team Description 01/09/2018 Infusion Department of Infusion Duncan Copeland Wound Toe Without Damage To Nail Open Subsequent (Primary Dx); Therapy in Jose Daniel Piper M.D. Neuropathy Peripheral; [address] Diabetes Mellitus Type 2 (HCC) [address] [place] [phone] Social History Tobacco Use Types Packs/Day Years [...] difficulties with this. 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 Ed's reports using hydrogen peroxide in the [...] and healthy. I recommended Ed see a instructor pilot for evaluation of his wounds, toenails, and calloused areas. I provided him with Dr. Blackwell's name and let him know she typically sees patient's here on Mondays. Iadvised he could either call and set up and appointment with her here, or could check with [facility] on podiatry schedule there. He will consider this as he has not seen a instructor pilot before, but is not sure he can make it work with his schedule. In the meantime, they will continue with every other day dressing changes and will follow up with [facility] in a week or so. I [...] as of this encounter Care Teams Commercial Construction Estimator Relationship Specialty Start Date End Date Cintia Cobb M.D. PCP - General 02/19/17 02/20/[id number] [phone] documented as of this encounter
--- OUTSIDE RECORDS SUMMARY | 2022-08-12 09:23 | XMS_ITS | Encounter Summary ---
:1960 Author Organization [facility] Address [address] [place] [address] Care Team Providers Name Role Phone Cintia Cobb M.D. Primary Care Provider [phone] Reason for Visit Reason Comments Communication Encounter Details Date Type Department Care Team Description 09/01/2017 Clinical Communication Department of [facility] Medicine, Cintia Jean Baptiste, judith Piper M.D. [address] [phone] Social History Tobacco Use Types Packs/Day Years [...] as of this encounter Care Teams Glass Bulb Machine Adjuster Relationship Specialty Start Date End Date Cintia Cobb M.D. PCP - General 02/19/17 02/20/[address] [place] [phone] documented as of this encounter
--- OUTSIDE RECORDS SUMMARY | 2022-08-12 09:23 | XMS_ITS | Encounter Summary ---
:1960 Author Organization [facility] Address [address] [place] [address] Care Team Providers Name Role Phone Cintia Cobb M.D. Primary Care Provider [phone] Reason for Visit Reason Onset Date Comments RX PRIOR AUTHORIZATION 03/11/2018 DENIAL OF LYRICA Encounter Details Date Type Department Care Team Description 03/11/2018 Clinical [facility] Pari Song RX PRIOR Communication [facility] Cintia Copeland AUTHORIZATION [address] Feliz M.D. (DENIAL OF LYRICA ) [place] [id number] [place] [phone] [facility] [phone] [place] [address] Social History Tobacco Use Types [...] documented as of this encounter Care Teams Parts Counter Salesperson Relationship Specialty Start Date End Date Cintia Cobb M.D. PCP - General 02/19/17 02/20/[id number] [phone] documented as of this encounter
--- OUTSIDE RECORDS SUMMARY | 2022-08-12 09:23 | XMS_ITS | Encounter Summary ---
:1960 Author Organization [facility] Address [address] [place] [address] Care Team Providers Name Role Phone Cintia Cobb M.D. Primary Care Provider [phone] Encounter Details Date Type Department Care Team Description 01/08/2018 Orders Only Department of Infusion Sruthi Campos Wou nd Toe Without Therapy in [place] Damage To Nail Open [place] [address] Subsequent (Primary [address] [place] [address] Blvd Dx) [place] [phone] Social History Tobacco Use Types Packs/Day Years [...] as of this encounter Care Teams Lens Maker Relationship Specialty Start Date End Date Cintia Cobb M.D. PCP - General 02/19/17 02/20/[address] [place], [place] [address] [phone] documented as of this encounter
--- OUTSIDE RECORDS SUMMARY | 2022-08-12 09:23 | XMS_ITS | Encounter Summary ---
:1960 Author Organization [facility] Address [address] [place] [address] Care Team Providers Name Role Phone Cintia Cobb M.D. Primary Care Provider [phone] Reason for Visit Reason Comments Communication Encounter Details Date Type Department Care Team Description 08/13/2017 Clinical Communication Department of [facility] Laura Mejia Communication Medicine, Jose Daniel Motta R.N. [address] [address] [place], [place] [phone] (Work) [phone] Social History Tobacco Use Types Packs/Day Years [...] Pt very pleasant during entire phone conversation. E SPECIALIST documented in this encounter Plan of Treatment Not on filedocumented as of this encounter Visit Diagnoses Not on filedocumented in this encounter Additional Health Concerns Assessment Noted Time PHQ-9 Depression Total Score: 18 02/14/2013 9:53 AM CD T documented as of this encounter Care Teams Dock Clerk Relationship Specialty Start Date End Date Cintia Cobb M.D. PCP - General 02/19/17 02/20/[address] [place] [phone] documented as of this encounter
--- OUTSIDE RECORDS SUMMARY | 2022-08-12 09:23 | XMS_ITS | Encounter Summary ---
:1960 Author Organization [facility] Address [address] [place] [address] Care Team Providers Name Role Phone Cintia Cobb M.D. Primary Care Provider [phone] Reason for Visit Reason Comments Back Pain C/o lower back pain that sta rted 03/18/18. Located lower left back, radiating to the knee. Encounter Details Date Type Department Care Team Description 03/24/2018 Emergency [facility], Lavern Lindsay , Pain Low Back (Primary Department M.D. Dx) [address] [place] [address] [place], [place] [phone] (Wo rk) Social History Tobacco Use [...] cannot be sent through Care Everywhere.Back Exercises [id number] (Citizen Of [place])Acute Pain Adult (Citizen Of [place])documented in this encounter Medications at Time of [...] History provided by: Patient and significant other nutrition club ambassador used: No REVIEW OF SYSTEMS All other [...] documented as of this encounter Care Teams Refrigeration Person Relationship Specialty Start Date End Date Cintia Cobb M.D. PCP - General 02/19/17 02/20/[address] [phone] documented as of this encounter
--- OUTSIDE RECORDS SUMMARY | 2022-08-12 09:23 | XMS_ITS | Encounter Summary ---
:1960 Author Organization [facility] Address [address] [place] [address] Care Team Providers Name Role Phone Cintia Cobb M.D. 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 Cultures were [...] of big toe. Lesli Sotomayor R.N. 12/21/17 165 documented in this encounter Plan of Treatment [...] Component Value Ref Test Analysis Performed At [facility] gist Range Method Time Signature Bacterial STAPHYLOCOCCUS COAGULASE-NEGATIVE 2017 [facility] Culture, 1+ 10:13 AM HEALTH Aerobic (A) CDT SYSTEM- [facility] Specimen (Source) Anatomical Collection Method Collection Time Re ceived Time Location / / Volume Laterality Tissue, Superficial 12/21/2017 6:20 12/21 (Toe, Right) PM CDT 10:25 PM CDT Comment: Specimen Source Site: Tissue, S uperficial Eugene Bunch III, M.D. LAB MICROBIOLOGY - [facility] ORDERABLES Performing Organization Address City/State/ZIP Code Phon e Number [facility]- [address] [place] [address] [facility] DX Toes Right 3 Views (12/21/2017 [...] NT-Pro BNP 490 (H) <=76 pg/mL 12/21/2017 [facility] 6:42 PM CDT [facility]- [facility] Comment: REVISED RESULTS NT-proBNP values less [...] supplements. ??If the result does not [facility] clinical observations, repeat testing after patient [...] Biotin has bee n identified by the curtain drier as a potential interfering substance. ??Higher concentr ations of biotin may be found in multivitamins, hair/nail supple ments, and workout supplements. ??If the result does not [facility] clinical observations, repeat testing after patient refrains fr om the use of supplements for at least 12 hours. Abnormal_High (Re ported 12/21/2017 18:08) Specimen Anatomical Collection Method Collection Time Receive d Time (Source) Location / / Volume Laterality Blood (Blood, 12/21/2017 5:20 PM 12/22/19 18 5:21 Venous) CDT PM CDT Eugene Bunch III, M.D. LAB BLOOD ADD-ON Performing Organization Address City/State/[facility] Phon e Number [facility]- [address] [place] [address] LAB (ABNORMAL) BMP (Basic Metabolic Panel) (12/21/2017 5:20 PM CDT) P athologist Signature Potassium, P 4.2 3.6 - 5.2 12/21/2017 [facility] mmol/L 5:41 PM [facility] Sodium, P 137 135 - 145 12/21/2017 [facility] mmol/L 5:41 PM [facility] Chloride, P 99 98 - 107 12/21/2017 [facility] mmol/L 5:41 PM [facility] Bicarbonate, P 27 22 - 29 12/21/2017 [facility] mmol/L 5:41 PM [facility] Anion Gap, P 11 7 - 15 12/21/2017 [facility] 5:41 PM [facility] BUN (Blood Urea 30 (H) 8 - 24 12/21/2017 [facility] Nitrogen), P mg/dL 5:41 PM [facility] Creatinine 1.08 0.74 - 12/21/2017 [facility] 1.35 mg/dL 5:41 PM [facility] eGFR-Black/Afri 86 >=60 12/21/2017 [facility] can Pakistani mL/min/BSA 5:41 PM [facility] Comment: ----ADDITIONAL INFORMATION---- Estimated GFR calculated using the 2009 CKD_EPI creatinine equation. eGFR Non-Black/ 75 >=60 mL/min/BSA 12/21/2017 5:41 PM [facility] Comment: ----ADDITIONAL INFORMATION---- Estimated GFR calculated using the 2009 CKD_EPI creatinine equation. Calcium, Total, P 8.8 (L) 8.9 - 10.1 mg/dL 12/21/2017 5 :41 PM [facility] Glucose, P 140 70 - 140 mg/dL 12/21/2017 5:41 PM [facility] Specimen Anatomical Collection Method Collection Time Receive d Time (Source) Location / / Volume Laterality Blood (Blood, 12/21/2017 5:20 PM 12/22/19 18 5:21 Venous) CDT PM CDT Eugene Bunch III, M.D. LAB BLOOD ADD-ON Performing Organization Address City/[facility] Phon e Number [facility]- [id number] [place] [address] LAB (ABNORMAL) CBC with Differential (12/21/2017 5:19 PM CDT) [facility] Method Time Signature Hemoglobin 9.5 (L) 13.2 - 12/21/2017 [facility] 16.6 g/dL 5:26 PM [facility] Hematocrit 29.5 (L) 38.3 - 12/21/2017 [facility] 48.6 % 5:26 PM [facility] Erythrocytes 3.08 (L) 4.35 - 12/21/2017 [facility] 5.65 5:[address] [facility] HEALTH x10(12)/L [facility] MCV 95.8 78.2 - 12/21/2017 [facility] 97.9 fL 5:26 PM [facility] RBC Distrib Width 13.8 11.8 - 12/21/2017 [facility] 14.5 % 5:26 PM [facility] Platelet Count 202 135 - 317 12/21/2017 [facility] x10(9)/L 5:26 PM CDT [facility] Leukocytes 7.3 3.4 - 9.6 12/21/2017 [facility] x10(9)/L 5:26 PM CDT [facility] Neutrophils 4.72 1.56 - 12/21/2017 [facility] 6.45 5:26 PM CDT HEALTH x10(9)/L [facility] Lymphocytes 1.62 0.95 - 12/21/2017 [facility] 3.07 5:26 PM CDT HEALTH x10(9)/L [facility] Monocytes 0.68 0.26 - 12/21/2017 [facility] 0.81 5:26 PM CDT HEALTH x10(9)/L [facility] Eosinophils 0.29 0.03 - 12/21/2017 [facility] 0.48 5:26 PM CDT HEALTH x10(9)/L [facility] Basophils 0.03 0.01 - 12/21/2017 [facility] 0.08 5:[address] [facility] x10(9)/L [facility] Specimen Anatomical Collection Method Collection Time Receive d Time (Source) Location / / Volume Laterality Blood (Blood, 12/21/2017 5:19 PM 12/22/19 18 5:21 Venous) CDT PM CDT Eugene Bunch III, M.D. LAB BLOOD ADD-ON Performing Organization Address City/State/ZIP Code Phon e Number [facility]- [address] [place] [address] [place] [facility] documented in this encounter Visit Diagnoses [...] 12/21/2017 clindamycin capsule 300 mg (for_CLEOCIN) (COMPLETED) 5216 (Given - Provider: Lesli Sotomayor R.N.) 300 mg, oral, Once, On 12/21/17 at 18 43, For 1 dose, Indications: Bone and/or joint infection documented in this encounter Additional Health Concerns Assessment Noted Time PHQ-9 Depression Total Score: 18 02/14/2013 9:53 AM CD T documented as of this encounter Care Teams Associate Professor Of Art History Relationship Specialty Start Date End Date Cintia Cobb M.D. PCP - General 02/19/17 02/20/[address] [place] [phone] documented as of this encounter
--- OUTSIDE RECORDS SUMMARY | 2022-08-12 09:23 | XMS_ITS | Encounter Summary ---
:1960 Author Organization [facility] Address [address] [place] [address] Care Team Providers Name Role Phone Cintia Cobb M.D. Primary Care Provider Encounter Details Date Type Department Care Team Description 02/21/2018 Documentation Department of Infusion Gus Campos R.N. Therapy in [address] [address] [place] [address] Social History Tobacco Use Types [...] Ed called today and spoke with our [facility], stating he is not able to come in today for a recheck but would like to come in this week. The HYBRID CORN BREEDER stated he could come in and see [...] documented as of this encounter Care Teams Raise Drill Operator Relationship Specialty Start Date End Date Cintia Cobb M.D. PCP - General 02/19/17 02/20/[address] [phone] documented as of this encounter
--- OUTSIDE RECORDS SUMMARY | 2022-08-12 09:23 | XMS_ITS | Encounter Summary ---
:1960 Author Organization [facility] Address [address] [place] [address] Care Team Providers Name Role Phone Cintia Cobb M.D. Primary Care Provider Reason for Visit Reason Comments Follow-up Outpatient (Routine) - Closed Specialty Diagnoses / Procedures Referred By Contact Refer red To Contact Family Medicine Cintia Cobb DREW Piper M.D. [address] [place] [address] [place] [phone] Referral ID Status Reason Start Date Expiration Date Visits Requ ested Visits Authorized [id number] Closed 12/22/2017 06/20/2018 1 1 Encounter Details Date Type Department Care Team Description 03/02/2018 Office Visit Department of [facility] Terri Cobb Mellitus Type 2 Peripheral Neuropathy (HCC) (Primary Dx); Merlyn Cabello M.D. Anemia Iron Deficiency; [facility], in [address] [place] [address] Hyperten mikey Essential Primary; [facility] Gastric Bypass Status Post; [facility] [place] Pacemaker Cardiac Status Pos t; [address] [place] [phone] Diabetes Mellitus Type 2 (HCC) [place] [phone] (Work) [phone] Social History Tobacco Use Types Packs/Day Years [...] Ferritin, S 44 30 - 400 03/03/2018 [facility] mcg/L 1:22 PM CDT [facility] [place] [facility] Comment: Biotin has been identified by the [facility] as a potential interfering substance. ??Higher concentr ations of biotin may be found in multivitamins, hair/nail supple ments, and workout supplements. ??If the result does not [facility] clinical observations, repeat testing after patient [...] e Number [facility] [address] [place] [address] [facility] (ABNORMAL) Hemoglobin (03/02/2018 7:37 PM CDT) athologist Signature Hemoglobin 10.6 (L) 13.2 - 16.6 03/02/2018 [facility] g/dL 8:02 PM CDT [facility] Specimen Anatomical Collection Method Collection Time Receive d Time (Source) Location / / Volume Laterality Blood (Blood, 03/02/2018 7:37 PM 03/02/20 18 7:44 Venous) CDT PM CDT Cintia Copeland M.D. LAB BLOOD ADD-ON Performing Organization Address City/State/ZIP Code Phon e Number [facility]- [address] [place] [address] [place] [address] [place] [facility] Lipid Panel (03/02/2018 7:37 PM CDT) athologist Signature Cholesterol, 139 mg/dL 03/02/2018 [facility] Total 8:26 PM CDT [facility] Comment: ----REFERENCE VALUE---- Desirable: < 200 Borderline high: 200 - 239 High: > or = 240 Triglycerides 40 mg/dL 03/02/2018 8:26 PM CDT [facility] Comment: ----REFERENCE VALUE---- Normal: <150 Borderline high: 150-199 High: 200-499 Very high: > or =500 Cholesterol, HDL, S 56 >=40 mg/dL 03/02/2018 8:26 PM CDT [facility] Calculated LDL 75 mg/dL 03/02/2018 8:26 PM CDT [facility] Comment: ----REFERENCE VALUE---- Desirable: <100 Above Desirable: 100-129 Borderline high: 130-159 High: 160-189 Very high: > or =190 Cholesterol, Non-HDL, 83 mg/dL 03/02/2018 8:26 PM [facility] Comment: ----REFERENCE VALUE---- Desirable: <130 Above Desirable: 130-159 Borderline high: 160-189 High: 190-219 Very high: > or =220 Specimen Anatomical Collection Method Collection Time Receive d Time (Source) Location / / Volume Laterality Blood (Blood, 03/02/2018 7:37 PM 03/02/20 18 7:44 Venous) CDT PM CDT Cintia Copeland M.D. LAB BLOOD ADD-ON Performing Organization Address City/[facility]/ZIP Code Phon e Number [address] [address] [place] [facility] Hemoglobin A1c (03/02/2018 7:37 PM CDT) P athologist Signature Hemoglobin A1c, 5.6 4.2 - 5.6 03/02/2018 [facility] B % 8:03 PM CDT [facility] Specimen Anatomical Collection Method Collection Time Receive d Time (Source) Location / / Volume Laterality Blood (Blood, 03/02/2018 7:37 PM 03/02/20 18 7:44 Venous) CDT PM CDT Cintia Copeland M.D. LAB BLOOD ADD-ON Performing Organization Address City/[facility]/ZIP Code Phon e Number [address] [address] [place] [facility] documented in this encounter Visit Diagnoses [...] of this encounter Care Teams Real Estate Consultant Relationship Specialty Start Date End Date Cintia Cobb M.D. PCP - General 02/19/17 02/20/[address] [place] [phone] documented as of this encounter
--- OUTSIDE RECORDS SUMMARY | 2022-08-12 09:23 | XMS_ITS | Encounter Summary ---
:1960 Author Organization [facility] Address [address] [place] [address] Care Team Providers Name Role Phone Cintia Cobb M.D. Primary Care Provider [phone] Reason for Visit Reason Comments Neuro Consult Neuropathy Outpatient (Routine) - Closed Specialty Diagnoses / Procedures Referred By Contact Refer red To Contact Neurology Diagnoses Neuropathy Peripheral Cintia Cobb [facility] DREW Piper M.D. [address] [address] Referral ID Status Reason Start Date Expiration Date Visits V isits Requested Authorized [id number] Closed Specialty 12/24/2017 2018 1 1 Services Required Encounter Details Date Type Department Care Team Description 01/23/2018 Comprehensive Visit Department of Cintia Aguirre M.D. [address] [phone] Neuropathy Neurology in German Garnica M.D. [address] [place] [address] Peripheral ([place], [place] Dx) [address] [phone] Social History Tobacco Use Types [...] athologist Signature Ceruloplasmin, 25.0 19.0 - 01/25/2018 [facility] S 31.0 mg/dL 11:30 AM CDT LABORATORIES - [facility] Specimen Anatomical Collection Method Collection Time Receive d Time (Source) Location / / Volume Laterality Blood (Blood, 01/23/2018 10:01/25/2018 8:03 Venous) AM CDT AM CDT German Kwong M.D. LAB BLOOD ADD-ON Performing Organization Address City/[facility]/ZIP Code Phon e Number [facility] [address] [address] [facility] Copper (01/23/2018 10:19 AM CDT) athologist Signature Copper, S 1.09 0.75 - 1.45 01/25/2018 [facility] mcg/mL 1:22 PM CDT [facility] Comment: ----ADDITIONAL INFORMATION---- This test was developed and its performa nce characteristics determined by [facility] in a manner consistent with CLIA requirements. This test has not been cleared or approved by the [place] d and Drug Administration. Specimen Anatomical Collection Method Collection Time Receive d Time (Source) Location / / Volume Laterality Blood (Blood, 01/23/2018 10:01/25/2018 7:04 Venous) AM CDT AM CDT German Kwong M.D. LAB BLOOD NON ADD-ON Performing Organization Address City/State/ZIP Code Phon e Number [facility] [address] [address] [facility] documented in this encounter Visit Diagnoses Diagnosis Neuropathy Peripheral - Primary documented in this encounter Additional Health Concerns Assessment Noted Time PHQ-9 Depression Total Score: 18 02/14/2013 9:53 AM CD T documented as of this encounter Care Teams Iron Guardrail Installer Relationship Specialty Start Date End Date Cintia Cobb M.D. PCP - General 02/19/17 02/20/[address] [phone] documented as of this encounter
--- OUTSIDE RECORDS SUMMARY | 2022-08-12 09:23 | XMS_ITS | Encounter Summary ---
:1960 Author Organization [facility] Address [address] [place] [address] Care Team Providers Name Role Phone Cintia Cobb M.D. Primary Care Provider Reason for Visit Reason Comments Fall the other day due to pacemaker Wants pacemaker re moved - hurt knee. Encounter Details Date Type Department Care Team Description 11/24/2017 Office Visit Department of [facility] Terri Cobb Mellitus Type 2 With Diabetic Neuropathy (HCC) (Primary Dx); Medicine, Jose Daniel Piper M.D. Pacemaker Cardiac Status Post; [facility], [place] [address] Pain Kne e Right; [facility] Gastric Bypass Status Post [address] [address] [place], [place] [phone] (W ork) [address] [phone] Social History Tobacco Use Types Packs/Day Years [...] eating. I did review this with the clinical trial educator who thought dumping syndrome might be a [...] documented as of this encounter Care Teams Beer Brewer Relationship Specialty Start Date End Date Cintia Cobb M.D. PCP - General 02/19/17 02/20/[address] [place] [phone] documented as of this encounter
--- OUTSIDE RECORDS SUMMARY | 2022-08-12 09:23 | XMS_ITS | Encounter Summary ---
:1960 Author Organization [facility] Address [address] [place] [address] Care Team Providers Name Role Phone Cintia Cobb M.D. Primary Care Provider [phone] Encounter Details Date Type Department Care Team Description 02/25/2018 Infusion Department of Infusion Duncan Copeland Wound Toe Without Damage To Nail Open Subsequent (Primary Dx); Therapy in Jose Daniel Piper M.D. Diabetes Mellitus Type 2 Peripheral Neur opathy (HCC); [address] Diabetes Mellitus Type 2 (HCC) [address] [place] [address] [phone] Social History Tobacco Use Types Packs/Day Years [...] Cobb M.D. PCP - General 02/19/17 02/20/[address] [phone] documented as of this encounter
--- OUTSIDE RECORDS SUMMARY | 2022-08-12 09:23 | XMS_ITS | Encounter Summary ---
:1960 Author Organization [facility] Address [address] [place] [address] Care Team Providers Name Role Phone Cintia Cobb M.D. Primary Care Provider Reason for Visit Reason Comments Pre-op Exam Appointment Request (Routine) - Closed Specialty Diagnoses / Procedures Referred By Contact Refer red To Contact Family Medicine Referral ID Status Reason Start Date Expiration Date Visits Requ ested Visits Authorized [id number] Closed 07/07/2017 01/03/2018 1 1 Encounter Details Date Type Department Care Team Description 08/04/2017 Office Visit Department of Family Tigist Cobb reoperative Exam (Primary Dx); Medicine, Jose Daniel Piper M.D. Diabetes Mellitus Type 2 (HCC); [facility], [place] [address] Neuropat hy Peripheral; [facility] Pacemaker Cardiac Status Post [address] [address] [place], [place] [phone] (Work) [phone] Social History Tobacco Use Types Packs/Day Years Used Date Smoking Tobacco: Never Smokeless Tobacco: Never Sex Assigned at Date Recorded Not on file documented as of this encounter Last Filed Vital Signs Vital Sign Reading Time Taken Comments Blood Pressure 137/81 08/04/2017 6:49 PM DERRICK BOAT LEVERMAN Pulse 75 08/04/2017 6:49 PM DERRICK BOAT LEVERMAN Temperature 36.6 ??C (97.9 ??F) 08/04/2017 6:49 PM DERRICK BOAT LEVERMAN Respiratory Rate - - Oxygen Saturation 100% 08/04/2017 6:49 PM DERRICK BOAT LEVERMAN Inhaled Oxygen Concentration - - Weight 76.8 kg (169 lb 5.4 oz) 08/04/2017 6:49 PM DERRICK BOAT LEVERMAN Height - - Body Mass Index 22.94 06/02/2017 6:04 PM CDT documented in this encounter Progress Notes Xochitl Hackett L.P.N. - 08/04/2017 6:45 PM CST Client here for preop exams. 08[facility] unsure of name of surgeon 08/28 - paniculectomy with Dr. Motley (?) in [place], unsure what site. Not feeling these days - since pacemaker placed. Legs heavy, difficulty to climb stairs, area aroundpacer painful, fatigued a lot of the time. Difficulty doing his job as he's often sleepy. 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 [...] PLT 162 08/04/2017 ECG 12 Lead Order: [id number] Status: Final result Visible to patient: No (Inaccessible in Patient Online Services) Dx: Preoperative Exam Ref Range & Units 3d ago Ventricular Rate ECG/Min BPM 66 GA Interval ms 192 QRSD Interval ms 182 QT Interval ms 468 QTC Interval ms 490 P [place] degrees 45 R [place] degrees -91 T Wave [place] degrees 71 Clinical Diagnosis Dual chamber electronic [...] to follow up withCardiology to this point. ICK BOAT LEVERMAN documented in this encounter Plan of Treatment Not on filedocumented as of this encounter Procedures Procedure Name Priority Date/Time Associated Diagnosis Comme nts ECG Routine 08/04/2017 8:03 PM Preoperative Exam Resu lts for this DERRICK BOAT LEVERMAN procedure are i n the results section. CBC WITHOUT Routine 08/04/2017 7:58 PM Preoperative Exam Resu lts for this DIFFERENTIAL, B DERRICK BOAT LEVERMAN procedure ar e in the results section. HEMOGLOBIN A1C, B Routine 08/04/2017 7:58 PM Diabetes Mellitus Results for this DERRICK BOAT LEVERMAN Type 2 (HCC) procedure are i n the results section. BASIC METABOLIC Routine 08/04/2017 7:58 PM Preoperative Exam R esults for this PANEL, S/P DERRICK BOAT LEVERMAN procedure are i n the results section. documented in this encounter Results ECG 12 Lead (08/04/2017 8:03 PM DERRICK BOAT LEVERMAN) [facility] Method Time Signature Ventricular 66 BPM MUSE Rate ECG/Min GA Interval 192 ms MUSE QRSD Interval 182 ms MUSE QT Interval 468 ms MUSE QTC Interval 490 ms MUSE P [place] 45 degrees MUSE R [place] -91 degrees MUSE T Wave [place] 71 degrees MUSE Clinical Dual chamber electronic pacemaker MUSE Diagnosis Sinus rhythm When compared with ECG of 20-JAN-2017 05:46, No significant change was found Specimen Anatomical Collection Method Collection Time Receive d Time (Source) Location / / Volume Laterality 08/04/2017 8:03 PM 7 8:27 DERRICK BOAT LEVERMAN PM [employer]ERR[employer] LEVERMAN Narrative This result has an attachment that is no t available. Cintia Copeland M.D. ECG ORDERABLES Performing Organization Address City/State/ZIP Code Phon e Number MUSE MUSE NA Hemoglobin A1c (08/04/2017 7:58 PM DERRICK BOAT LEVERMAN) P athologist Signature Hemoglobin A1c, 5.0 4.2 - 5.6 08/04/2017 [facility] B % 9:56 PM [facility] [place] [employer] Specimen Anatomical Collection Method Collection Time Receive d Time (Source) Location / / Volume Laterality Blood (Blood, 08/04/2017 7:58 PM 08/04/20 17 8:02 Venous) DERRICK BOAT LEVERMAN PM [employer]ERRICK [employer]AT LEVERMAN Cintia Copeland M.D. LAB BLOOD ADD-ON Performing Organization Address City/[facility] Phon e Number [facility]- [address] [place] [address] [facility] (ABNORMAL) CBC without Differential (08/04/2017 7:58 PM DERRICK BOAT LEVERMAN) Patholo gist Method Time Signature Hemoglobin 11.3 (L) 13.2 - 08/04/2017 [facility] 16.6 g/dL 8:09 PM [facility] Hematocrit 34.4 (L) 38.3 - 08/04/2017 [facility] 48.6 % 8:09 PM [facility] Erythrocytes 3.56 (L) 4.35 - 08/04/2017 [facility] 5.65 8:09 PM [facility] x10(12)/L [facility] [place] [employer] MCV 96.6 78.2 - 08/04/2017 [facility] 97.9 fL 8:09 PM [facility] RBC Distrib Width 13.5 11.8 - 08/04/2017 [facility] 14.5 % 8:09 PM [facility] Platelet Count 162 135 - 317 08/04/2017 [facility] x10(9)/L 8:09 PM [facility] Leukocytes 7.7 3.4 - 9.6 08/04/2017 [facility] x10(9)/L 8:09 PM [facility] Specimen Anatomical Collection Method Collection Time Receive d Time (Source) Location / / Volume Laterality Blood (Blood, 08/04/2017 7:58 PM 08/04/20 17 8:02 Venous) DERRICK BOAT LEVERMAN PM [employer]ERR[employer]EVERMAN Cintia Copeland M.D. LAB BLOOD ADD-ON Performing Organization Address City/State/ZIP Code Phon e Number [facility]- [address] [address] [place] [employer] (ABNORMAL) BMP (Basic Metabolic Panel) (08/04/2017 7:58 PM [facility]) P athologist Signature Potassium, S 4.1 3.6 - 5.2 08/04/2017 [facility] mmol/L 9:56 PM [facility] Sodium, S 138 135 - 145 08/04/2017 [facility] mmol/L 9:56 PM [facility] Chloride, S 96 (L) 98 - 107 08/04/2017 [facility] mmol/L 9:56 PM [facility] Bicarbonate, S 31 (H) 22 - 29 08/04/2017 [facility] mmol/L 9:56 PM [facility] Anion Gap 11 7 - 15 08/04/2017 [facility] 9:56 PM [facility] BUN (Blood Urea 28 (H) 8 - 24 08/04/2017 [facility] Nitrogen), S mg/dL 9:56 PM [facility] Creatinine 1.13 0.74 - 08/04/2017 [facility] 1.35 mg/dL 9:56 PM [facility] eGFR 71 >=60 08/04/2017 [facility] Non-Black/Afric mL/min/BSA 9:56 PM [facility] EM- an Cymraes [place] [facility] Comment: ----ADDITIONAL INFORMATION---- Estimated GFR calculated using the 2009 CKD_EPI creatinine equation. eGFR-Black/ 82 >=60 mL/min/BSA 2016 9:56 PM [facility] Comment: ----ADDITIONAL INFORMATION---- Estimated GFR calculated using the 2009 CKD_EPI creatinine equation. Calcium, Total, S 9.5 8.9 - 10.1 mg/dL 08/04/2017 9:56 PM [facility] Glucose, S 146 (H) 70 - 140 mg/dL 08/04/2017 9:56 PM [facility] Specimen Anatomical Collection Method Collection Time Receive d Time (Source) Location / / Volume Laterality Blood (Blood, 08/04/2017 7:58 PM 08/04/20 17 8:02 Venous) DERRICK BOAT LEVERMAN PM [employer]EVERMAN Cintia Copeland M.D. LAB BLOOD ADD-ON Performing Organization Address City/State/ZIP Code Phon e Number [facility]- [address] [place] [address] [facility] documented in this encounter Visit Diagnoses Diagnosis Preoperative Exam - Primary Diabetes Mellitus Type 2 (HCC) Neuropathy Peripheral Pacemaker Cardiac Status Post documented in this encounter Additional Health Concerns Assessment Noted Time PHQ-9 Depression Total Score: 18 02/14/2013 9:53 AM CD T documented as of this encounter Care Teams Jewelry Sales Associate Relationship Specialty Start Date End Date Cintia Cobb M.D. PCP - General 02/19/17 02/20/[address] [place] [phone] documented as of this encounter
--- OUTSIDE RECORDS SUMMARY | 2022-08-12 09:23 | XMS_ITS | Encounter Summary ---
:1960 Author Organization [facility] Address [address] [place] [address] Care Team Providers Name Role Phone Cintia Cobb M.D. Primary Care Provider [phone] Encounter Details Date Type Department Care Team [...] documented as of this encounter Care Teams Beach Patrol Lieutenant Relationship Specialty Start Date End Date Cintia Cobb M.D. PCP - General 02/19/17 02/20/[address] [place] [phone] documented as of this encounter
--- OUTSIDE RECORDS SUMMARY | 2022-08-12 09:23 | XMS_ITS | Encounter Summary ---
:1960 Author Organization [facility] Address [address] [place] [address] Care Team Providers Name Role Phone Cintia Cobb M.D. Primary Care Provider [phone] Reason for Visit Reason Comments Right knee pain Encounter Details Date Type Department Care Team Description 09/01/2017 Office Visit Department of [facility] Knee Initial Right (Primary Dx); Medicine, Jose Daniel Piper M.D. Neuropathy [facility], [address] [address] [place], [place] [phone] (W ork) [address] [phone] Social History Tobacco Use Types Packs/Day Years Used Date Smoking Tobacco: Never Smokeless Tobacco: Never Sex Assigned at Date Recorded Not on file documented as of this encounter Last Filed Vital Signs Vital Sign Reading Time Taken Comments Blood Pressure 146/83 09/01/2017 4:25 PM MASTER TECHNICIAN Pulse 62 09/01/2017 4:25 PM MASTER TECHNICIAN Temperature 36.6 ??C (97.9 ??F) 09/01/2017 4:25 PM MASTER TECHNICIAN Respiratory Rate - - Oxygen Saturation 100% 09/01/2017 4:25 PM MASTER TECHNICIAN Inhaled Oxygen Concentration - - Weight - - Height - - Body Mass Index - - documented in this encounter Patient Instructions Patient InstructionsCintia Cobb M.D. - 09/01/2017 4:45 PM MASTER TECHNICIAN Future Appointments Date Time Provider Department Center 10/13/2017 2:00 PM Eli Lopez D.O. [facility] SEMFei CFERWZ ER TECHNICIAN documented in this encounter Progress Notes Xochitl Hackett L.P.N. - 09/01/2017 4:45 PM CST Client also had a fall off his trailer due to his pacemaker. States he had no dizziness or warning prior. Did hurt right knee, split lip and scuffed right hand. ER TECHNICIAN Cintia Cobb M.D. - 09/01/2017 4:45 PM [...] EMG which patient was willing to pursue. ER TECHNICIAN documented in this encounter Plan of Treatment Not on filedocumented as of this encounter Visit Diagnoses Diagnosis Injury Knee Initial Right - Primary Neuropathy Peripheral documented in this encounter Additional Health Concerns Assessment Noted Time PHQ-9 Depression Total Score: 18 02/14/2013 9:53 AM CD T documented as of this encounter Care Teams Upholstery Technician Relationship Specialty Start Date End Date Cintia Cobb M.D. PCP - General 02/19/17 02/20/[address] [phone] documented as of this encounter
--- OUTSIDE RECORDS SUMMARY | 2022-08-12 09:23 | XMS_ITS | Encounter Summary ---
:[address] [facility] Address [address] [place] [address] Care Team Providers Name Role Phone Cintia Cobb M.D. Primary Care Provider [phone] Encounter Details Date Type Department Care Team [...] documented as of this encounter Care Teams Patent Paralegal Relationship Specialty Start Date End Date Cintia Cobb M.D. PCP - General 02/19/17 02/20/[address] [phone] documented as of this encounter
--- OUTSIDE RECORDS SUMMARY | 2022-08-12 09:23 | XMS_ITS | Encounter Summary ---
:1960 Author Organization [facility] Address [address] [place] [address] Care Team Providers Name Role Phone Cintia Cobb M.D. Primary Care Provider [phone] Encounter Details Date Type Department Care Team Description 03/23/2018 Clinical Communication Department of [facility] [place] Medicine, Jose Daniel Hernandez [address] [address] [place], [place] [phone] (Work) [phone] Social History Tobacco Use Types Packs/Day Years [...] documented as of this encounter Care Teams After School Tutor Relationship Specialty Start Date End Date Cintia Cobb M.D. PCP - General 02/19/17 02/20/[address] [place] [phone] documented as of this encounter
--- OUTSIDE RECORDS SUMMARY | 2022-08-12 09:23 | XMS_ITS | Encounter Summary ---
:1960 Author Organization [facility] Address [address] [place] [address] Care Team Providers Name Role Phone Cintia Cobb M.D. Primary Care Provider Reason for Referral Outpatient (Routine) - Closed Specialty Diagnoses / Procedures Referred By Contact Refer red To Contact Family Medicine Cintia Cobb DREW Piper M.D. [address] [place] [phone] Referral ID Status Reason Start Date Expiration Date Visits Requ ested Visits Authorized [id number] Closed 12/22/2017 06/20/2018 1 1 Encounter Details Date Type Department Care Team Description 12/22/2017 Orders Only Department of [facility] Terri Cobb iabetes Mellitus Type Medicine, Jose Daniel Piper M.D. 2 (HCC) (Primary Dx) [facility], [address] [address] [place], [place] [phone] (W ork) [address] [phone] Social History Tobacco Use Types Packs/Day Years Used Date Smoking Tobacco: Never Smokeless Tobacco: Never Alcohol Use Standard Drinks/Week Comments No 0 (1 standard drink = 0.6 oz pure alcoho l) Sex Assigned at Date Recorded Not on file documented as of this encounter Plan of Treatment Scheduled Referrals Name Type Priority Associated Diagnoses [facility] Outpatient Referral Routine Expec ti: office visit 01/05/2018, (clinic) Expires: 12/22/2020 documented as of this encounter Results Lipid Panel (03/02/2018 7:37 PM CDT) athologist Signature Cholesterol, 139 mg/dL 03/02/2018 [facility] Total 8:26 PM CDT [facility] [place] [facility] Comment: ----REFERENCE VALUE---- Desirable: < 200 Borderline high: 200 - 239 High: > or = 240 Triglycerides 40 mg/dL 03/02/2018 8:26 PM CDT [facility] Comment: ----REFERENCE VALUE---- Normal: <150 Borderline high: 150-199 High: 200-499 Very high: > or =500 Cholesterol, HDL, S 56 >=40 mg/dL 03/02/2018 8:26 PM CDT [facility] Calculated LDL 75 mg/dL 03/02/2018 8:26 PM CDT [facility] [place] [facility] Comment: ----REFERENCE VALUE---- Desirable: <100 Above Desirable: 100-129 Borderline high: 130-159 High: 160-189 Very high: > or =190 Cholesterol, Non-HDL, 83 mg/dL 03/02/2018 8:26 PM CDT [facility] LAB Comment: ----REFERENCE VALUE---- Desirable: <130 Above Desirable: 130-159 Borderline high: 160-189 High: 190-219 Very high: > or =220 Specimen Anatomical Collection Method Collection Time Receive d Time (Source) Location / / Volume Laterality Blood (Blood, 03/02/2018 7:37 PM 03/02/20 18 7:44 Venous) CDT PM CDT Cintia Copeland M.D. LAB BLOOD ADD-ON Performing Organization Address City/State/ZIP Code Phon e Number [facility]- [id number] [place] [address], [place] [address] [place] [facility] Hemoglobin A1c (03/02/2018 7:37 PM CDT) P athologist Signature Hemoglobin A1c, 5.6 4.2 - 5.6 03/02/2018 [facility] B % 8:03 PM CDT [facility] [place] [facility] Specimen Anatomical Collection Method Collection Time Receive d Time (Source) Location / / Volume Laterality Blood (Blood, 03/02/2018 7:37 PM 03/02/20 18 7:44 Venous) CDT PM CDT Cintia Copeland M.D. LAB BLOOD ADD-ON Performing Organization Address City/State/ZIP Code Phon e Number [facility]- [address] [place] [address] [facility] [facility] documented in this encounter Visit Diagnoses Diagnosis Diabetes Mellitus Type 2 (HCC) - Primary documented in this encounter Additional Health Concerns Assessment Noted Time PHQ-9 Depression Total Score: 18 02/14/2013 9:53 AM CD T documented as of this encounter Care Teams Petrophysical Engineer Relationship Specialty Start Date End Date Cintia Cobb M.D. PCP - General 02/19/17 02/20/[address] [place] [phone] documented as of this encounter
--- OUTSIDE RECORDS SUMMARY | 2022-08-12 09:23 | XMS_ITS | Encounter Summary ---
:1960 Author Organization [facility] Address [address] [place] [address] Care Team Providers Name Role Phone Cintia Cobb M.D. Primary Care Provider [phone] Reason for Visit Reason Comments Communication Encounter Details Date Type Department Care Team Description 08/07/2017 Clinical Communication Department of [facility] Communication Medicine, Cintia [facility], in [place]. [address] [phone] Social History Tobacco Use Types Packs/Day Years Used Date Smoking Tobacco: Never Smokeless Tobacco: Never Sex Assigned at Date Recorded Not on file documented as of this encounter Miscellaneous Notes Telephone Encounter - Cintia Cobb M.D. - 08/07/2017 6:48 AM IMPROVEMENT LEAD Please fax a copy of Ed's preop note and EKG to [facility]. Patient did not know the exact location to fax it to, but the phone number he calls is [phone] or [phone], so hopefully someone at one of those numbers can tell us where to direct it. Cintia Segura OVEMENT LEAD documented in this encounter Plan of Treatment Not on filedocumented as of this encounter Visit Diagnoses Not on filedocumented in this encounter Additional Health Concerns Assessment Noted Time PHQ-9 Depression Total Score: 18 02/14/2013 9:53 AM CD T documented as of this encounter Care Teams Facility Service Associate Relationship Specialty Start Date End Date Cintia Cobb M.D. PCP - General 02/19/17 02/20/[address] [place] [phone] documented as of this encounter
--- OUTSIDE RECORDS SUMMARY | 2022-08-12 09:23 | XMS_ITS | Encounter Summary ---
:1960 Author Organization [facility] Address [address] [place] [address] Care Team Providers Name Role Phone Cintia Cobb M.D. Primary Care Provider [phone] Encounter Details Date Type Department Care Team Description 12/08/2017 Orders Only Department of [facility] Feliz [facility] Leg Right MedicineJose Daniel M.D. (Primary Dx) [facility], [address] [address] [place], [place] [phone] (W ork) [address] [phone] Social History Tobacco Use Types Packs/Day Years [...] as of this encounter Care Teams Sales Program Coordinator Relationship Specialty Start Date End Date Cintia Cobb M.D. PCP - General 02/19/17 02/20/[address] [place] [phone] documented as of this encounter
--- OUTSIDE RECORDS SUMMARY | 2022-08-12 09:23 | XMS_ITS | Encounter Summary ---
:1960 Author Organization [facility] Address [address] [place] [address] Care Team Providers Name Role Phone Cintia Cobb M.D. Primary Care Provider Reason for Visit Reason Onset Date Comments Radilogy semi-urgent result 12/22/2017 Encounter Details Date Type Department Care Team Description 12/22/2017 Clinical Loki Gallegos Communication Emergency Eugene W III, semi-urgen t result Department M.D. [address] [place] [phone] Social History Tobacco Use Types Packs/Day Years [...] documented as of this encounter Care Teams Light Rail Transit Operator Relationship Specialty Start Date End Date Cintia Cobb M.D. PCP - General 02/19/17 02/20/[address] [phone] documented as of this encounter
--- OUTSIDE RECORDS SUMMARY | 2022-08-12 09:23 | XMS_ITS | Encounter Summary ---
:1960 Author Organization [facility] Address [address] [place] [address] Care Team Providers Name Role Phone Cintia Cobb M.D. Primary Care Provider [phone] Reason for Visit Reason Comments Elbow Pain left Encounter Details Date Type Department Care Team Description 02/14/2018 Emergency [place] [facility] RadhausTali, Inj ury Elbow Initial Department P.A.-C. Left (Primary Dx) [address] [phone] Social History Tobacco Use Types Packs/Day Years [...] fall Fall: Fall occurred: Standing Impact surface: [place] Point of impact: Onto L forearm with [...] pt as his surgeon is in the [facility] area. Further evaluation and mgmt per [...] documented as of this encounter Care Teams Toy Stuffer Relationship Specialty Start Date End Date Cintia Cobb M.D. PCP - General 02/19/17 02/20/[phone] [place] [phone] documented as of this encounter
--- OUTSIDE RECORDS SUMMARY | 2022-08-12 09:23 | XMS_ITS | Encounter Summary ---
:1960 Author Organization [facility] Address [address] [place] [address] Care Team Providers Name Role Phone Cintia Cobb M.D. Primary Care Provider [phone] Reason for Referral Outpatient (Routine) - Closed Specialty Diagnoses / Procedures Referred By Contact Refer red To Contact Diagnoses Neuropathy Peripheral [facility] Karla Piper M.D. [address] [place] [phone] Referral ID Status Reason Start Date Expiration Date Visits Requ ested Visits Authorized [id number] Closed 09/01/2017 02/28/2018 1 1 ESMITH Encounter Details Date Type Department Care Team Description 09/01/2017 Orders Only Department of [facility] Fei Cobb Peripheral Medicine, Jose Daniel Piper M.D. (Primary Dx) [facility], in [address] [place] [address] [place], [place] [phone] (W ork) [address] [phone] Social History Tobacco Use Types Packs/Day Years Used Date Smoking Tobacco: Never Smokeless Tobacco: Never Sex Assigned at Date Recorded Not on file documented as of this encounter Plan of Treatment Not on filedocumented as of this encounter Results EMG (10/13/2017 1:53 PM FORGESMITH) Specimen (Source) Anatomical Collection Method Collection Time Re ceived Time Location / / Volume Laterality 10/13/2017 1:53 PM FORGESMITH Narrative EMG - 10/15/2017 10:20 AM FORGESMITH 13-Oct-2017 ? Electromyography ? Final Report Study Number: 1 EMG Certified Personal Finance Counselor: Eli Lopez Referred by: Cintia Cobb () [...] Eli Lopez DO at 10/14/2017 5:04:07 PM FORGESMITH Cintia Copeland M.D. NEUROLOGY ORDERABLES Performing Organization Address City/State/[facility] Code Phon e Number MC EMG documented in this encounter Visit Diagnoses Diagnosis Neuropathy Peripheral - Primary documented in this encounter Additional Health Concerns Assessment Noted Time PHQ-9 Depression Total Score: 18 02/14/2013 9:53 AM CD T documented as of this encounter Care Teams Instructor Business Education Relationship Specialty Start Date End Date Cintia Cobb M.D. PCP - General 02/19/17 02/20/[address] [place] [address] [place] [address] documented as of this encounter
--- OUTSIDE RECORDS SUMMARY | 2022-08-12 09:23 | XMS_ITS | Encounter Summary ---
:1960 Author Organization [facility] Address [address] [place] [address] Care Team Providers Name Role Phone Cintia Cobb M.D. Primary Care Provider [phone] Encounter Details Date Type Department Care Team Description 09/01/2017 Hospital Encounter Department of [facility] Initial Radiology in Cintia [facility] [place], [place] Keely Piper [address] [place] [phone] Social History Tobacco Use Types Packs/Day [...] Results for this VIEWS (most inpatients PM BUILD MASTER Initial Right procedure are in and all the results outpatients) section. documented in this encounter Results DX Knee Right 4+ Views (09/01/2017 5:43 PM BUILD MASTER) Anatomical Region Laterality Modality Lower Extremity, Knee Right Digital Radiograph y Specimen (Source) Anatomical Collection Method Collection Time Re ceived Time Location / / Volume Laterality 09/02/2017 8:32 AM BUILD MASTER Impressions 09/02/2017 8:35 AM BUILD MASTER IMPRESSION: Diffuse bone demineralization. No acute fracture or traumatic malalignment. Mild diffuse degenerative change. Patellar spurs. Small knee effusion versus synovitis. Mild patellar soft tissue edema. Benign soft tissue calcifications. Vascular calcifications. Narrative 09/02/2017 8:35 AM BUILD MASTER EXAM: DX KNEE RIGHT 4+ VIEWS Procedure [...] documented as of this encounter Care Teams Purchasing/Receiving Relationship Specialty Start Date End Date Cintia Cobb M.D. PCP - General 02/19/17 02/20/[address] [place] [phone] documented as of this encounter
--- OUTSIDE RECORDS SUMMARY | 2022-08-12 09:23 | XMS_ITS | Encounter Summary ---
:1960 Author Organization [facility] Address [address] [place] [address] Care Team Providers Name Role Phone Cintia Cobb M.D. Primary Care Provider [phone] Reason for Visit Reason Comments Right great toe osteomyelitis Encounter Details Date Type Department Care Team Description 01/05/2018 Office Visit Department of [facility] Terri Cobb Mellitus Type 2 Ulcer Foot (HCC) (Primary Dx); Medicine, Jose Daniel Piper M.D. Diabetes Mellitus Type 2 Peripheral Neur opathy (HCC); [facility], [place] [address] Gastric Bypass Status Post [address] [address] [place], [place] [phone] (W ork) [address] [phone] Social History Tobacco Use Types Packs/Day Years [...] documented as of this encounter Care Teams Plaster Model And Mold Maker Relationship Specialty Start Date End Date Cintia Cobb M.D. PCP - General 02/19/17 02/20/[phone] [place] [phone] documented as of this encounter
--- OUTSIDE RECORDS SUMMARY | 2022-08-12 09:24 | XMS_ITS | Encounter Summary ---
:1960 Author Organization [facility] Address [address] [place] [address] Care Team Providers Name Role Phone Unavailable Primary Care Provider Unavailable Encounter Details Date Type Department Care Team Description 01/05/2017 Hospital Encounter HX [facility] Yariel Shaffer i, M.D. [address] [place], [place] [phone] (Wo rk) Social History Tobacco Use Types [...] answer From: DAVONTE PRASAD ( Family Medicine Agricultural Pilot) To: ART Family Medicine Nurse Bennett; Sent: 04/20/2017 10:00:59 CDT Subject: *Phone Message Caller is: ( x ) Patient ( ) Mother ( ) Father ( ) Spouse ( ) Daughter ( ) Son ( ) Pharmacy ( ) Other: Physician: Cintia Cobb Patient MRN #: Reason for Call: Patient would like to talk /complain about several issues. Please call to discuss [phone]. Patient also left a VM- he wanted [...] back cell phone number ( ) Source: [facility] POWERCHART Document Id: [id number] documented in this encounter Plan of Treatment [...] Erythrocytes 3.59 (L) 4.32 - POWERCHART 5.72 [id number] Hemoglobin 11.7 (L) 13.5 - POWERCHART 17.5 [...] Code Phon e Number POWERCHART Thyroid Function [place] (01/05/2017 5:38 PM CDT) P athologist Signature TSH, Sensitive 0.6 0.3 - 4.2 POWERCHART MIUL Comment: Test Performed by: [address] [address] Specimen (Source) Anatomical Collection Method Collection Time Re ceived Time Location / / Volume Laterality Blood 01/05/2017 5:38 PM CDT Jennifer Shaffer M.D. LAB BLOOD ADD-ON Performing Organization Address City/[facility]/ZIP Code Phon e Number POWERCHART Sodium (01/05/2017 5:38 PM CDT) athologist Signature Sodium, S 142 135 - 145 POWERCHART MMOLL Specimen (Source) Anatomical Collection Method Collection Time Re ceived Time Location / / Volume Laterality Blood 01/05/2017 5:38 PM CDT Jennifer Shaffer M.D. LAB BLOOD ADD-ON Performing Organization Address City/[facility]/ZIP Code Phon e Number POWERCHART Potassium (01/05/2017 [...] 1.35 MGDL HXeGFR (MDRD) >60 >=60 POWERCHART [id number] eGFR >60 >=60 POWERCHART Black/ [id number] [place] Specimen (Source) Anatomical Collection Method Collection Time [...]
--- OUTSIDE RECORDS SUMMARY | 2022-08-12 09:24 | XMS_ITS | Encounter Summary ---
:1960 Author Organization [facility] Address [address] [place] [address] Care Team Providers Name Role Phone Unavailable [...]
--- OUTSIDE RECORDS SUMMARY | 2022-08-12 09:24 | XMS_ITS | Encounter Summary ---
:1960 Author Organization [facility] Address [address] [place] [address] Care Team Providers Name Role Phone Cintia Cobb M.D. Primary Care Provider [phone] Encounter Details Date Type Department Care Team Description 03/30/2017 Confidential HX RST NO MAPPING Jennifer Shaffer M.D. [address] [place], [place] [phone] (Wo rk) Social History Tobacco Use Types Packs/Day Years Used Date Smoking Tobacco: Never Sex Assigned at Date Recorded Not on file documented as of this encounter Progress Notes Jennifer Shaffer M.D. - 03/30/2017 8:41 AM CDT DEMOGRAPHIC INFORMATION Clinic Number: [id number] Patient Name: Laz Luna Age: 56 Y Birthdate: 1960 Sex: M [address] [facility] City: [place] [address] CONFIDENTIAL NOTE Service Date/Time: 30-Mar-2017 08:41 Provider: Jennifer Shaffer MD Pager: [phone] Service: CV Type/Desc: MIS Status: Fnl Revision [...] by Shama Shaffer MD Clinical Notes - [id number] Id: [id number] Status: Fnl documented in this encounter Plan of Treatment Not on filedocumented as of this encounter Visit Diagnoses Not on filedocumented in this encounter Additional Health Concerns Assessment Noted Time PHQ-9 Depression Total Score: 18 02/14/2013 9:53 AM CD T documented as of this encounter Care Teams District Sales Manager Relationship Specialty Start Date End Date Cintia Cobb M.D. PCP - General 02/19/17 02/20/[address] [place] [phone] documented as of this encounter
--- OUTSIDE RECORDS SUMMARY | 2022-08-12 09:24 | XMS_ITS | Encounter Summary ---
:1960 Author Organization [facility] Address [address] [place] [address] Care Team Providers Name Role Phone Kevin Bullock M.D. Primary Care Provider [phone] Encounter Details Date Type Department Care Team Description 03/17/2017 Hospital Encounter HX [facility] Kevin Aguirre M.D. [address] [place] [phone] (Wo rk) Social History Tobacco Use Types [...] FEC OV Est Pt Level 4 - 78749 - 25 min Vitamin B12 and Folate Level*-Chairez 9156 2. Paresthesia NOS I am concerned about vitamin B12 deficiency although patient does note he typically takes his injections and also is taking a vitamin. Diabetic neuropathy is also possible but his A1c looks really good at this time. Ordered: OV Est Pt Level 4 - 75057 - 25 min 3. Pacemaker Cardiac S/P We remove some remaining suture fragments which will allow the corner of the pacemaker incision to heal. Heart rate is regular today. Ordered: OV Est Pt Level 4 - 98062 - 25 min 4. DM2 A1c is at goal. Lipid panel is also acceptable. Patient is not currently on any medications. Ordered: Ferritin-Chairez 8689 Iron and Total Fe Binding Capacity*-Chairez FEC OV Est Pt Level 4 - 85873 - 25 min Vitamin B12 and Folate Level*-Chairez 9156 5. Surgery Bariatric S/P Vitamin B12 and iron studies pending. Ordered: Ferritin-Chairez 8689 Iron and Total Fe Binding Capacity*-Chairez FEC OV Est Pt Level 4 - 65596 - 25 min Vitamin B12 and Folate Level*-Chairez 9156 6. Hypertension HTN NOS Blood pressure is acceptable. Continue current medications. BMP within normal limits. Ordered: OV Est Pt Level 4 - 08828 - 25 min Electronically Signed By: KEVIN BULLOCK MD On: 03/18/2017 07:02 AM Source: [facility] POWERCHART Document Id: [id number] documented in this encounter Miscellaneous Notes Miscellaneous [...] SHIRLENE SEXTON To: ART Family Medicine Nurse Guaajrdo; Sent: 05/04/2017 20:09:21 CDT Subject: *General Message Addendum to earlier message from today, [id number] Patient forgot to mention, since they put in the pacemaker he is bruising very easily. Not on blood thinner meds. PCP: Kevin Whyte, requesting follow up call, may be difficult to reach. Source: [facility] POWERCHART Document Id: [id number] Telephone Encounter - Conversion, Historical Provider Ser - 05/04/2017 10:46 AM CDT *Phone Message Document Contains Addenda Addendum by ANGEL NGUYEN on May 06, 2017 06:42:10 CDT Copy of this message mailed to client and will continue to attempt to reach him by phone. Addendum by KEVIN BULLOCK MD on May 05, 2017 20:06:01 CDT From: KEVIN BULLOCK MD To: PA Family Medicine Nurse Guajardo; Sent: 05/05/2017 20:06:01 [...] 2017 11:18:28 CDT From: HARVEY REDDY LPN ([facility] Family Medicine Nurse Guajardo) To: KEVIN BULLOCK MD; Sent: 05/04/2017 11:18:28 CDT Subject: FW: *Phone Message Forwarded to PCP to review From: MARY FELDER (PA Family Medicine Mine Engineering Manager) To: PA Family Medicine Nurse Guajardo; Sent: 05/04/2017 10:46:09 [...] like to have a return call to [phone]. If he is unable to answer please call the home # [phone]. Advice/Action: Source used: ( ) Verbalizes understanding [...] back cell phone number ( ) Source: [facility] MuzuiCHART Document Id: [id number] Miscellaneous - Kevin Bullock M.D. - 03/20/2017 3:19 PM CDT Normal Results Letter March 20, 2017 NOEMÍ LUNA [address] [facility] [id number] Dear NOEMÍ LUNA, Please review your test [...] an e-mail account, join the other [phone],000 [facility] patients who use the Patient Online Services to conveniently access their lab results by calling [phone] to sign up for an account. It [...] (mL/min/1.73m2) >60 03/17/2017 >60 01/05/2017 >=60 - veaM2MEGI (MDRD) (mL/min/1.73m2) >60 03/17/2017 >60 01/05/2017 >=60 [...] Total (mg/dL) 0.3 03/17/2017 0.1 - 1.0 Iron-Virgin (mcg/dL) (L) 48 03/17/2017 50 - 150 - TIBC-Virgin (mcg/dL) 319 03/17/2017 250 - 400 - Iron Sat-Virgin (%) 15 03/17/2017 14 - 50 - [...] >1400 03/17/2017 180 - 914 - Folate Lvl-Virgin (mcg/L) >20.0 03/17/2017 >=4.0 - Hgb (g/dL) [...] 01/05/2017 150 - 450 Sincerely, KEVIN VALENTIN [address] [place] [phone] Electronic Signature Electronically Signed By: KEVIN BULLOCK MD On: March 20, 2017 This document has images extracted. Source: [facility] POWERCHART Document Id: [id number] Electronically signed by Conversion, [facility] Cent[facility]endy Oceanography Professor [id number] at 03/21/2017 7:00 AM CDT Miscellaneous - Kevin Bullock M.D. - 03/17/2017 7:23 PM CDT Ambulatory Patient Summary [address] Jose Daniel [place] [phone] Visit Information Name: CARLYLE NOEMÍ Jim [facility] Number: [id number] Current Date: 03/17/2017 19:23:08 Physicians [...] if you dont have one. Go to [email or web address] and click on Create Your Account. Then, follow the directions to complete the online form. Youll be asked for your [facility] number which you can find at the top of this document. Your Goals/Additional instructions: Source: [facility] POWERCHART Document Id: [id number] Miscellaneous - Kevin Bullock M.D. - 03/17/2017 7:23 PM CDT Ambulatory Discharge Medication List [address] [place], [place] [phone] Visit Information Name: NOEMÍ LUNA [facility] Number: [id number] Current Date: 03/17/2017 19:23:04 Attending [...] MD Signed On:17-MAR-2017 19:22:54 Additional Information: Source: [facility] POWERCHART Document Id: [id number] Miscellaneous - Alvina Langston L.P.N. - 03/17/2017 6:34 PM CDT Adult Research Engineer Marine Equipment Intake/History Adult Research Engineer Marine Equipment Intake/History Entered On: 03/17/2017 18:39 CDT Performed On: 03/17/2017 18:34 CDT by ALVINA LANGSTON [facility] Intake Chief Complaint : Not feeling well [...] Preferred Communication Mode : Verbal Languages : Finnish Is Patient Female and 13-50 no hysterectomy : No ALVINA LANGSTON LPN - 03/17/2017 18:34 CDT Subjective Pain Symptoms : Yes ALVINA LANGSTON [facility] - 03/17/2017 18:34 CDT Pain Scale Pain Scale Verbal 0-10 : Open ALVINA LANGSTON [facility] 03/17/2017 18:34 CDT Pain Pain Assessment Grid Pain 1 Pain 2 Location : Head Lower leg Laterality : Bilateral ALVINA LANGSTON [facility] - 03/17/2017 18:34 CDT ALVINA LANGSTON LPN - 03/17/2017 18:34 CDT Dependent Habits Exposure to Tobacco Smoke : Care provider denies smoking in home, Other: never Smoking Status : Never smoker Tobacco 2A : No Tobacco Use/Currently Using : No Tobacco Use/Last 30 Days : No Tobacco Use/Last 12 months : No Alcohol Use : No ALVINA LANGSTON INSULATION NOZZLEMAN - 03/17/2017 18:34 CDT Caffeine Use Grid Caffeine Use : Current Type : Coffee, Soft drinks Frequency : Weekly Amount : soda- weekly; coffee- 1x/week ALVINA LANGSTON LPN - 03/17/2017 18:34 CDT Recreational Drug Use Grid Drug Use : None ALVINA LANGSTON LPN 03/17/2017 18:34 CDT Source: [employer] POWERCHART Document Id: [id number]!48 documented in this encounter Plan of [...] Erythrocytes 2.92 (L) 4.32 - POWERCHART 5.72 [id number] Hemoglobin 9.8 (L) 13.5 - POWERCHART 17.5 [...] 50 POWERCHART Saturation Comment: Test Performed by: [facility] [address] [place] [address] Specimen (Source) Anatomical Collection Method Collection Time Re ceived Time Location / / Volume Laterality Blood 03/17/2017 7:30 PM CDT Kevin Valentin M.D. LAB BLOOD ADD-ON Performing Organization Address City/[facility] Phon e Number POWERCHART POWERCHART NA Ferritin (03/17/2017 7:30 PM CDT) athologist Signature Ferritin, S 47 24 - 336 POWERCHART MCGL Comment: Test Performed by: [address] [address] Specimen (Source) Anatomical Collection Method Collection Time Re ceived Time Location / / Volume Laterality Blood 03/17/2017 7:30 PM CDT Kevin Valentin M.D. LAB BLOOD ADD-ON Performing Organization Address City/[facility]/ZIP Code Phon e Number POWERCHART POWERCHART NA (ABNORMAL) Vitamin B12 and Folate (03/17/2017 7:30 PM CDT) athologist Signature Folate, S >20.0 >=4.0 MCGL POWERCHART Comment: Test Performed by: [facility] [address] [place] [address] Vitamin B12 Assay, S >1400 (H) 180 - 914 NGL POWER CHART Specimen (Source) Anatomical Collection Method Collection Time Re ceived Time Location / / Volume Laterality Blood 03/17/2017 7:30 PM CDT Kevin Valentin M.D. LAB BLOOD NON ADD-ON Performing Organization Address City/[facility]/ZIP Code Phon e Number POWERCHART POWERCHART NA [...] esting for FH and FDB is available [facility] CamSemi: FH/ADH Genetic Reflex Luu el (test ADHP). Acquired (non-genetic) causes of markedly increased LDL cholesterol include cholestatic liver disease due to the presence of LpX. If a genetic form of hypercholesterolemia is suspected, family studies including biochemical testing fo r lipids (total cholesterol,triglycerides, LDL cholesterol and HDL cholesterol) are recommended. ??Please contact the laboratory at or the on-line test catalog at [employer] for information about how to order these [...] POWERCHART MMOLL HXeGFR (MDRD) >60 >=60 POWERCHART [id number] 2 eGFR Black/ >60 >=60 POWERCHART Czech [id number] 2 Bilirubin, Total, S 0.3 0.1 - [...] as of this encounter Care Teams Business Systems Administrator Relationship Specialty Start Date End Date Kevin Bullock M.D. PCP - General 02/19/17 02/20/[address] [phone] documented as of this encounter
--- OUTSIDE RECORDS SUMMARY | 2022-08-12 09:24 | XMS_ITS | Encounter Summary ---
:1960 Author Organization [facility] Address [address] [place] [address] Care Team Providers Name Role Phone Unavailable [...]
--- OUTSIDE RECORDS SUMMARY | 2022-08-12 09:24 | XMS_ITS | Encounter Summary ---
:1960 Author Organization [facility] Address [address] [place] [address] Care Team Providers Name Role Phone Unavailable [...]
--- OUTSIDE RECORDS SUMMARY | 2022-08-12 09:24 | XMS_ITS | Encounter Summary ---
:1960 Author Organization [facility] Address [address] [place] [address] Care Team Providers Name Role Phone Elsewhere, [...] 56 Y Birthdate: 1960 Sex: M Address: [address] [place] [address] [address] City: [place] [address] CONFIDENTIAL NOTE Service Date/Time: 16-Jan-2017 09:33 Provider: Dilcia Donaldson, MSN, MHA, RN Pager: [phone] Service: CVHREP Type/Desc: MIS Status: Fnl Revision #: 1 CHIEF COMPLAINT/PURPOSE OF VISIT Patient called Ellen Pham RN and became upset with her for asking [facility] number. Patient then was upset because RN asked for his full name. Nurse Clinic Business Manager Dilcia Donaldson called patient back and was able to obtain information from patient to inquire what specifically patient was concerned about. Patient refused the second time to give information needed for follow up. Nurse manager intranet informedpatient without name and birthday no other information could be given. Patient then was able to giveneeded verifications. Patient informed procedure on Thursday for ablation. Patient would be admitted overnight and discharged Thursday late afternoon. Patient also informed if he lives greater than 30 minutes from [place] will need to stay in [place] until Thursday. Patient states can he fly to [facility] for father in laws . Per information obtained from clinical operations consultant can fly after Thursdaybut unable to lift greater than 5 pounds for 2 weeks. Patient hung up on nurse manager intranet after information was given . Original: mgj Electronically Signed: 16-Jan-2017 09:47 by Tony Donaldson, MSN, CARL, RN Clinical Notes - [id number] Id: [id number] Status: Fnl Ellen Pham R.N. - 01/16/2017 9:07 AM CDT DEMOGRAPHIC INFORMATION Clinic Number: [id number] Patient Name: Laz Luna Age: 56 Y Birthdate: 1960 Sex: M Address: [address] [place] [address] City: [place] [address] CONFIDENTIAL NOTE Service Date/Time: 16-Jan-2017 09:07 Provider: Ellen Pham RN Pager: [phone] Service: CVHREP Type/Desc: MIS Status: Fnl Revision #: 2 CHIEF COMPLAINT/PURPOSE OF VISIT Left Message stating he had an emergency. This phone communication was initiated by a [facility] healthcare provider. The phone communication was with the patient. Phone number patient/caller is calling from or the number of the provider: [phone]. Follow-up phone number: Same as above. The patient's/caller's preferred language is Divehi. IMPRESSION/REPORT/PLAN Today I am covering for Alysia [...] back. Around 814, Janina Miranda, a CV Dumper called and left a message for me [...] keep these appointments. I have let my floor supervisor, Dilcia Donaldson, know about this phone call and she was going to try to follow up with him. RESPONSE TO EDUCATION /INFORMATION GIVEN. Patient/caller unable to teach back. TYPE OF PHONE CALL. Telephone follow-up. Original: console manager Electronically Signed: 16-Jan-2017 09:26 by Argelia Pham RN Clinical Notes - [id number] Id: [id number] Status: Fnl documented in this encounter Plan of Treatment Not on filedocumented as of this encounter Visit Diagnoses Not on filedocumented in this encounter Additional Health Concerns Infection Onset Date Last Indicated Resolved Time COVID19 Pending 09/30/2021 09/30/2021 09/30/2021 11:06 AM ELECTROPLATER APPRENTICE COVID19 Pending 10/03/2021 10/03/2021 10/23/2021 6:10 AM ELECTROPLATER APPRENTICE Assessment Noted Time PHQ-9 Depression Total Score: 18 02/14/2013 9:53 AM CD T documented as of this encounter Care Teams Director Of Student Aid Relationship Specialty Start Date End Date Elsewhere, Pcp PCP - General Internal Medicine 06/21/22 documented as of this encounter
--- OUTSIDE RECORDS SUMMARY | 2022-08-12 09:24 | XMS_ITS | Encounter Summary ---
:1960 Author Organization [facility] Address [address] [place] [address] Care Team Providers Name Role Phone Cintia Cobb M.D. Primary Care Provider [phone] Encounter Details Date Type Department Care Team Description 07/18/2017 Abstract Department of Ophthalmology in Provider, Historical Natalie Gillette n [address] [place] [address] Social History Tobacco Use Types Packs/Day [...] documented as of this encounter Care Teams Loan Servicing Officer Relationship Specialty Start Date End Date Cintia Cobb M.D. PCP - General 02/19/17 02/20/[address] [place] [phone] documented as of this encounter
--- OUTSIDE RECORDS SUMMARY | 2022-08-12 09:24 | XMS_ITS | Encounter Summary ---
:1960 Author Organization [facility] Address [address] [place] [address] Care Team Providers Name Role Phone Unavailable Primary Care Provider Unavailable Encounter Details Date Type Department Care Team Description 07/13/2016 Hospital Encounter HX [facility] ED Alexandra Barker M.D. [address] [place] [address] (Wo rk) Social History Tobacco Use Types Packs/Day Years Used Date Smoking Tobacco: Never Assessed Sex Assigned at Date Recorded Not on file documented as of this encounter Last Filed Vital Signs Vital Sign Reading Time Taken Comments Blood Pressure 142/83 07/13/2016 7:58 PM MOP MAKER Pulse 37 07/13/2016 7:10 PM MOP MAKER Temperature - - Respiratory Rate 20 07/13/2016 7:58 PM MOP MAKER Oxygen Saturation - - Inhaled Oxygen Concentration - - Weight - - Height - - Body Mass Index - - documented in this encounter Discharge Summaries Lesli Sotomayor, R.N. - 07/13/2016 7:59 PM CST ED Depart Summary [facility] Emergency Department Clinical Discharge Summary PERSON INFORMATION Name NOEMÍ LUNA Age 56 Years 1960 12:00 AM Sex Male Language Tuvaluan PCP KEVIN KILGORE MD Marital Status Visit Id Visit Reason Rash; Wants someone to take a oicture of his rash Specialty Enc Type Emergency Med Service Emergency Medicine Referred by Track Group [facility] ED Discharge 07/13/2016 7:59 PM Tracking Id [id number] Checkout 07/13/2016 7:59 PM Checkin 07/13/2016 7:03 PM Acuity 4 -Less Urgent Dispo Type * Discharged to Home or Self Care Arrival 07/13/2016 7:03 PM Reg Status Complete LOS 000 00:56 Address: [address] [place] [phone] Comment: PROVIDER INFORMATION Provider Role Provider Contact Time CIERRA BARKER MD ED Provider 07/13/16 19:07 LESLI SOTOMAYOR DUMPING MACHINE OPERATOR Nurse 07/13/16 19:15 DIAGNOSIS Rash Groin Comment: PATIENT EDUCATION INFORMATION Instructions: Self-Care for Skin Rashes Follow up: With: Address: When: KEVIN KILGORE [address] [place] [id number] Business (1) Within As Needed Comments: The photo of your rash will be sent to plastic surgeon Dr. Richard. Source: [facility] POWERCHART Document Id: [id number] MAKER Lesli Sotomayor, R.N. - 07/13/2016 7:59 PM CST ED Discharge Instructions [address] [address] Name: NOEMÍ LUNA Date of : 1960 12:00 AM Visit Date: 07/13/2016 7:03 PM [facility] Number: [id number] Address: [address] [place] [phone] Primary Care Provider: KEVIN KILGORE MD IMPORTANT: [facility] in [place] would like to thank you for allowing us to assist you with your healthcare needs. The following includes patient education materials and informationregarding your injury/illness. Diagnosis: Rash Groin Follow-Up Instructions: With: Address: When: KEVIN FERRER-[address] [address] [phone] [place] (1) Within As Needed Comments: The photo [...] control itching of many rashes. ?? Using tidp-mtq-ylnpffm hydrocortisone cream on small rashes may help reduce swelling and itching. Most famb-zii-xrcumwa antifungal medications can treat athletes foot and [...] resistant bacteria (MRSA) on your skin. ?? 3974-4235 [facility], [address] [place] [address]. All rights reserved. This information is not [...] if you dont have one. Go to [email or web address] and click on Create Your Account. Then, follow the directions to complete the online form. Youll be asked for your [facility] number which you can find at [...] Source: [facility] POWERCHART Document Id: [id number] MAKER documented in this encounter Medications at [...] ED Disposition Summary Entered On: 07/13/2016 19:58 MOP MAKER Performed On: 07/13/2016 19:58 MOP MAKER by LESLI SOTOMAYOR RN ED Disposition Summary Present in Room During Exam/Procedure : Alone Mode of Discharge : Ambulatory Transportation : Private vehicle Printed Discharge Instructions Given to Patient : Yes Patient Status at Discharge from ED : Improved LESLI SOTOMAYOR RN - 07/13/2016 19:58 MOP MAKER Source: [employer] Document Id: [id number] MOP MAKER!7 MAKER Lesli Sotomayor R.N. - 07/13/2016 7:58 PM CST ED Pain Assessment ED Pain Assessment Entered On: 07/13/2016 19:58 MOP MAKER Performed On: 07/13/2016 19:58 MOP MAKER by LESLI SOTOMAYOR RN Pain Assessment Pain Symptoms : No LESLI SOTOMAYOR RN - 07/13/2016 19:58 MOP MAKER Source: [employer] Document Id: [id number] MOP MAKER!3 MAKER Cierra Barker M.D. - 07/13/2016 7:41 PM CST Rash Document Contains Addenda Addendum by CIERRA BARKER MD on July 14, 2016 0:[address] Doyle sent an email stating that he does not have coverage for surgical repair of his abdominal skin fold, so treatment can be prescribed. Will treat with clotrimazole cream BID. Electronically Signed By: CIERRA BAREKR MD On: 07/13/2016 09:49 PM Modified by [...] Note : Chief Complaint Description 07/13/2016 19:10 MOP MAKER Chief Complaint Description Pt comes in to ER with c/o of a rash to right lowerabdomen and just want a picture taken of it for another Dr. . History of Present Illness States he is here to have his groin rash photographed, as suggested by his plastic surgeon, Dr. April Doyle, from [place]. The rash is red, weeping, but not [...] on 09/29/2012 at 52 years. Comments: 09/30/2012 MOP MAKER 15:06 STEVE COUCH APRN COLLEGE PHYSICS INSTRUCTOR left Genital warts (078.19) Comments: 09/30/2013 MOP MAKER 11:47 ANOOP MESSER FABRICATION MIG WELDER onset unknown Tinea pedis* (110.4) Comments: 09/30/2013 MOP MAKER 11:47 ANOOP MESSER FABRICATION MIG WELDER onset unknown Tinea cruris. (110.3) Comments: 09/30/2013 MOP MAKER 11:47 ANOOP MESSER FABRICATION MIG WELDER onset unknown. Surgical history: Gastric bypass ([id number]) on 11/19/2014 at 54 Years. Cystoscopy ([id number]) on 12/26/2009 at 49 Years. Comments: 02/20/2010 08:36 - STEVE ANDREA CNP [facility] / normal PSA, TOTAL SCREENING (G0103) on 12/26/2009 at 49 Years. Comments: 02/20/2010 08:38 - STEVE ANDREA CNP Done at [place] / Result: 1.55 Discectomy ([id number]) on 02/19/1989 at 28 Years. Comments: 12/28/2009 09:38 - STEVE ANDREA COLLEGE PHYSICS INSTRUCTOR lumbar L4-L5. Family history: Diabetes mellitus Mother [...] Examination Vital Signs: Vital Signs 07/13/2016 19:10 MOP MAKER Temperature Core 36.4 DegC LOW Peripheral Pulse Rate 37 /min <LLOW Respiratory Rate 18 /min SpO2 100 % Systolic Blood Pressure 144 mmHg HI Diastolic Blood Pressure 71 mmHg Mean Arterial Pressure 95 mmHg , SpO2 07/13/2016 19:10 MOP MAKER SpO2 100 % . General: Alert and [...] has images extracted. Source: [facility] [employer]ing [employer] Document Id: [id number]} MAKER Manan Ramírez, R.N. - 07/13/2016 7:12 PM CST ED Primary Assessment Document Has Been Updated ED Primary Assessment Entered On: 07/13/2016 19:13 MOP MAKER Performed On: 07/13/2016 19:12 MOP MAKER by MANAN RAMÍREZ RN Reason For Visit (As Of: 07/13/2016 19:13:41 MOP MAKER) Problems(Active) BPH without urinary obstruction (ICD-9-CM :600.00 ) Name of Problem: BPH without urinary obstruction; Recorder: STEVE ANDREA APRN, CNP; Confirmation: Confirmed ; Classification: Medical ; Code: 600.00 ; Contributor System: Scopix ; Last Updated: 02/15/2010 10:00 CDT ; Life Cycle Date: 02/15/2010 ; Life Cycle Status: Active ; Responsible Provider: STEVE ANDREA APRN, CNP; Vocabulary: ICD-9-CM ; Comments: 09/30/2013 11:46 - ANOOP QUEVEDO FABRICATION MIG WELDER onset unknown DM II (or NOS), uncontrolled (ICD-9-CM :250.02 ) Name of Problem: DM II (or NOS), uncontrolled ; Onset Date: 12/28/2009 ; Recorder: STEVE ANDREA APRN, CNP; Confirmation: Confirmed ; Classification: Medical ; Code: 250.02 ; Contributor System: PowerChart ; Last Updated: 07/24/2011 10:45 MOP MAKER ; Life Cycle Date: 12/05/2010 ; Life [...] System: PowerChart ; Last Updated: 07/29/2014 7:02 MOP MAKER ; Life Cycle Status: Active ; Responsible Provider: KEVIN KILGORE MD; Vocabulary: ICD-9-CM Flutter Atrial NOS (ICD-9-CM :427.32 ) Name of Problem: Flutter Atrial NOS ; Recorder: JOSIE CASTANEDA LPN, RT; Confirmation: Confirmed ; Classification: Medical ; Code: 427.32 ; Contributor System: SolidariumChart ; Last Updated: 01/04/2015 10:57 CDT ; Life Cycle Status: Active ; Vocabulary: ICD-9-CM Fracture Closed Radial head (ICD-9-CM :813.05 ) Name of Problem: Fracture Closed Radial head ; OnsetDate: 09/29/2012 ; Recorder: STEVE ANDREA APRN, CNP; Confirmation: Confirmed ; Classification: Medical ; Code: 813.05 ; Contributor System: PowerChart ; Last Updated: 09/30/2012 15:06 MOP MAKER ; Life Cycle Date: 09/30/2012 ; Life Cycle Status: Active ; Responsible Provider: STEVE ANDREA APRN, CNP; Vocabulary: ICD-9-CM ; Comments: 09/30/2012 15:06 - STEVE ANDREA APRN, CNP left Genital warts (ICD-9-CM :078.19 ) Name of Problem: Genital warts ; Recorder: MARILUZ FRAGA MD; Confirmation: Confirmed ; Classification: UPDATE NEEDED ; Code: 078.19 ; Contributor System: PowerChart; Last Updated: 11/05/2015 4:20 MOP MAKER ; Life Cycle Date: 02/11/2013 ; Life [...] Code: 695.89 ; Last Updated: 07/14/2012 14:36 MOP MAKER ; Life Cycle Status: Active ; Responsible [...] System: PowerChart ; Last Updated: 09/05/2010 9:56 MOP MAKER ; Life Cycle Date: 09/05/2010 ; Life [...] Medical ; Code: 110.3 ; Contributor System: SolidariumChart ; Last Updated: 06/01/2013 9:06 CDT ; Life Cycle Date: 06/01/2013 ; Life Cycle Status: Active ; Responsible Provider: MARILUZ FRAGA MD; Vocabulary: ICD-9-CM ; Comments: 09/30/2013 11:47 Shea ANOOP QUEVEDO RLPN onset unknown Tinea pedis* (ICD-9-CM :110.4 ) Name of Problem: Tinea pedis* ; Recorder: MARILUZ FRAGA MD; Confirmation: Confirmed ; Classification: Medical ; Code: 110.4 ; Contributor System: SolidariumChart ; Last Updated: 02/02/2014 8:24 CDT ; Life Cycle Date: 06/01/2013 ; Life Cycle Status: Active ; Responsible Provider: MARILUZ FRAGA MD; Vocabulary: ICD-9-CM ; Comments: 09/30/2013 11:47 Shea ANOOP QUEVEDO R FABRICATION MIG WELDER onset unknown Ulcer of skin NOS (ICD-9-CM :707.9 ) Name of Problem: Ulcer of skin NOS ; Recorder: HALEIGH SCHULTZ APRN, CNP; Confirmation: Confirmed ; Classification: UPDATE NEEDED ; Code: 707.9 ; Contributor System:PowerChart ; Last Updated: 09/18/2010 8:25 MOP MAKER ; Life Cycle Date: 09/18/2010 ; Life Cycle Status: Active ; Responsible Provider: HALEIGH SCHULTZ APRN, CNP; Vocabulary: ICD-9-CM ; Comments: 09/30/2013 11:47 Shea ANOOP QUEVEDO R FABRICATION MIG WELDER onset unknown Unspecified Adjustment Reaction (ICD-9-CM :309.9 ) Name of Problem: Unspecified Adjustment Reaction ; Onset Date: 05/05/2013 ; Confirmation: Confirmed ; Classification: Medical ; Code: 309.9 ; Contributor System: [facility]_HX_PR_UPLOAD ; Last Updated: 12/03/2013 18:36 CDT ; Life Cycle Status: Active ; Vocabulary: ICD-9-CM ; Comments: - Unspecified adjustment reaction Urge Incontinence (ICD-9-CM :788.31 ) Name of Problem: Urge Incontinence ; Recorder: STEVE ANDREA CNP; Confirmation: Confirmed ; Classification: Medical ; Code: 788.31 ; Contributor System: SolidariumChart ; Last Updated: 02/20/2010 8:39 CDT ; Life Cycle Date: 02/20/2010 ; Life Cycle Status: Active; Responsible Provider: STEVE ANDREA APRN, CNP; Vocabulary: ICD-9-CM ; Comments: 09/30/2013 11:46 - ANOOP QUEVEDO FABRICATION MIG WELDER onset unknown Diagnoses(Active) Rash Date: 07/13/2016 ; Diagnosis Type: Reason For Visit ; Confirmation: Complaint of ; Clinical Dx:Rash ; Classification: Medical ; Clinical Service: Emergency medicine ; Code: PNED ; Probability: 0 ; Diagnosis Code: [id number] Triage Chief Complaint Description : see triage Mode of Arrival ED : Private vehicle, Ambulatory Track : Medical Languages : Tuvaluan Treatments Prior to Arrival : None Is Patient Female and 13-50 no hysterectomy : No MANAN RAMÍREZ RN - 07/13/2016 19:12 MOP MAKER Pain Assessment Pain Symptoms : No MANAN RAMÍREZ RN - 07/13/2016 19:12 MOP MAKER Respiratory Airway : Patent Respirations : Unlabored Respiratory Pattern : Regular MANAN RAMÍREZ RN - 07/13/2016 19:12 MOP MAKER Cardiovascular Heart Rhythm : Regular Skin Color : Normal for ethnicity Skin Description : Dry Skin Temperature : Warm MANAN RAMÍREZ RN - 07/13/2016 19:12 MOP MAKER Neurological Last Well Time Known : Not applicable Level of Consciousness : Alert Orientation : Oriented x 3 Characteristics of Speech : Appropriate for age MANAN RAMÍREZ RN - 07/13/2016 19:12 MOP MAKER ED Psychosocial Affect/Behavior : Calm Domestic Abuse Concerns : None Behavioral Health Screen/Safety Assmt : No MANAN RAMÍREZ RN - 07/13/2016 19:12 MOP MAKER Gastrointestinal Nutrition ED : Adequate MANAN RAMÍREZ RN - 07/13/2016 19:12 MOP MAKER Musculoskeletal Fall Prevention Education Provided : MANAN RUIZ RN - 07/13/2016 19:12 MOP MAKER Social Habits Exposure to Tobacco Smoke : Care provider denies smoking in home, Other: never Smoking Status : Never smoker Tobacco 2A : No Tobacco Use/Currently Using : No Tobacco Use/Last 30 Days : No Tobacco Use/Last 12 months : No MANAN RAMÍREZ RN - 07/13/2016 19:12 MOP MAKER Alcohol Use Grid Alcohol Use : No MANAN RAMÍREZ RN - 07/13/2016 19:12 MOP MAKER Recreational Drug Use Grid Drug Use : None MANAN RAMÍREZ RN - 07/13/2016 19:12 MOP MAKER Source: [facility] POWERCHART Document Id: [id number] MOP MAKER!45 MAKER Manan Ramírez R.N. - 07/13/2016 7:10 PM CST ED Triage Assessment Document Has Been Updated ED Triage Assessment Entered On: 07/13/2016 19:12 MOP MAKER Performed On: 07/13/2016 19:10 MOP MAKER by MANAN RAMÍREZ RN Reason For Visit (As Of: 07/13/2016 19:12:45 MOP MAKER) Problems(Active) BPH without urinary obstruction (ICD-9-CM :600.00 ) Name of Problem: BPH without urinary obstruction; Recorder: STEVE ANDREA APRN, CNP; Confirmation: Confirmed ; Classification: Medical ; Code: 600.00 ; Contributor System: SolidariumChart ; Last Updated: 02/15/2010 10:00 CDT ; [...] Medical ; Code: 250.02 ; Contributor System: SolidariumChart ; Last Updated: 07/24/2011 10:45 MOP MAKER ; Life Cycle Date: 12/05/2010 ; Life [...] System: PowerChart ; Last Updated: 07/29/2014 7:02 MOP MAKER ; Life Cycle Status: Active ; Responsible [...] System: PowerChart ; Last Updated: 09/30/2012 15:06 MOP MAKER ; Life Cycle Date: 09/30/2012 ; Life Cycle Status: Active ; Responsible Provider: STEVE ANDREA APRN, CNP; Vocabulary: ICD-9-CM ; Comments: 09/30/2012 15:06 - STEVE ANDREA APRN, CNP left Genital warts (ICD-9-CM :078.19 ) Name of Problem: Genital warts ; Recorder: MARILUZ FRAGA MD; Confirmation: Confirmed ; Classification: UPDATE NEEDED ; Code: 078.19 ; Contributor System: Scopix; Last Updated: 11/05/2015 4:20 MOP MAKER ; Life Cycle Date: 02/11/2013 ; Life [...] Code: 695.89 ; Last Updated: 07/14/2012 14:36 MOP MAKER ; Life Cycle Status: Active ; Responsible [...] Obesity NOS ; Recorder: STEVE ANDREA APRN COLLEGE PHYSICS INSTRUCTOR; Confirmation: Confirmed ; Classification: Medical ; Code: 278.00 ; Contributor System: PowerChart ; Last Updated: 09/05/2010 9:56 MOP MAKER ; Life Cycle Date: 09/05/2010 ; Life Cycle Status: Active ; Responsible Provider: STEVE ANDREA APRN COLLEGE PHYSICS INSTRUCTOR; Vocabulary: ICD-9-CM ; Comments: 09/30/2013 11:ANOOP ISAAC [...] Medical ; Code: 110.3 ; Contributor System: SolidariumChart ; Last Updated: 06/01/2013 9:06 CDT ; Life Cycle Date: 06/01/2013 ; Life Cycle Status: Active ; Responsible Provider: MARILUZ FRAGA MD; Vocabulary: ICD-9-CM ; Comments: 09/30/2013 11:ANOOP ISAAC RLJACK onset unknown Tinea pedis* (ICD-9-CM :110.4 ) Name of Problem: Tinea pedis* ; Recorder: MARILUZ FRAGA MD; Confirmation: Confirmed ; Classification: Medical ; Code: 110.4 ; Contributor System: Scopix ; Last Updated: 02/02/2014 8:24 CDT ; Life Cycle Date: 06/01/2013 ; Life Cycle Status: Active ; Responsible Provider: MARILUZ FRAGA MD; Vocabulary: ICD-9-CM ; Comments: 09/30/2013 11:ANOOP ISAAC FABRICATION MIG WELDER onset unknown Ulcer of skin NOS (ICD-9-CM :707.9 ) Name of Problem: Ulcer of skin NOS ; Recorder: HALEIGH SCHULTZ APRN, CNP; Confirmation: Confirmed ; Classification: UPDATE NEEDED ; Code: 707.9 ; Contributor System:SolidariumChart ; Last Updated: 09/18/2010 8:25 MOP MAKER ; Life Cycle Date: 09/18/2010 ; Life Cycle Status: Active ; Responsible Provider: HALEIGH SCHULTZ APRN, CNP; Vocabulary: ICD-9-CM ; Comments: 09/30/2013 11:ANOOP ISACA FABRICATION MIG WELDER onset unknown Unspecified Adjustment Reaction (ICD-9-CM :309.9 ) Name of Problem: Unspecified Adjustment Reaction ; Onset Date: 05/05/2013 ; Confirmation: Confirmed ; Classification: Medical ; Code: 309.9 ; Contributor System: [facility]_HX_PR_UPLOAD ; Last Updated: 12/03/2013 18:36 CDT ; Life Cycle Status: Active ; Vocabulary: ICD-9-CM ; Comments: - Unspecified adjustment reaction Urge Incontinence (ICD-9-CM :788.31 ) Name of Problem: Urge Incontinence ; Recorder: STEVE ANDREA CNP; Confirmation: Confirmed ; Classification: Medical ; Code: 788.31 ; Contributor System: Scopix ; Last Updated: 02/20/2010 8:39 CDT ; [...] PNED ; Probability: 0 ; Diagnosis Code: [id number] Triage Chief Complaint Description : Pt comes in to ER with c/o of a rash to right lower abdomen and just want a picture taken of it for another Dr. Information Given By : Patient Present in Room During Exam/Procedure : Alone Mode of Arrival ED : Private vehicle, Ambulatory Track : Medical Languages : Tuvaluan Vital Signs Assessed : Yes Treatments Prior to Arrival : None Is Patient Female and 13-50 no hysterectomy : No MANAN RAMÍREZ RN - 07/13/2016 19:10 MOP MAKER Vital Signs Temperature Core : 36.4 DegC(Converted to: 97.5 DegF) (LOW) Peripheral Pulse Rate : 37 /min (<LLOW) Respiratory Rate : 18 /min Systolic Blood Pressure : 144 mmHg (HI) Diastolic Blood Pressure : 71 mmHg NIBP Mean : 95 mmHg SpO2 : 100 % MANAN RAMÍREZ RN - 07/13/2016 19:10 MOP MAKER Pain Assessment Pain Symptoms : No MANAN RAMÍREZ RN - 07/13/2016 19:10 MOP MAKER Comfort Measures Comfort Measures Grid Rest : Yes MANAN RAMÍREZ RN - 07/13/2016 19:10 MOP MAKER ED Physician Notification Time ED Physician Notification Time : 07/13/2016 19:12 MOP MAKER MANAN RAMÍREZ RN - 07/13/2016 19:10 MOP MAKER ERIN ERIN Level 1 : No ERIN Level 2 : No ERIN Level 3 : One MANAN RAMÍREZ RN - 07/13/2016 19:10 MOP MAKER DCP GENERIC CODE Tracking Acuity : 4 -Less Urgent Tracking Group : [facility] ED MANAN RAMÍREZ RN - 07/13/2016 19:10 MOP MAKER Allergy (As Of: 07/13/2016 19:12:45 MOP MAKER) Allergies (Active) Cipro Estimated Onset Date: Unspecified ; Created By: STEVE ANDREA APRN, CNP; Reaction Status: Active ; Category: Drug ; Substance: Cipro ; Type: Allergy ; Updated By: STEVE ANDREA APRN, CNP; Reviewed Date: 07/13/2016 19:12 MOP MAKER Influenza Virus Vaccine Estimated Onset Date: Unspecified ; Reactions: diarrhea ; Created By: STEVE ANDREA APRN, CNP; Reaction Status: Active ; Category: Drug ; Substance: Influenza Virus Vaccine ; Type: Intolerance ; Updated By: STEVE ANDREA APRN, CNP; Reviewed Date: 07/13/2016 19:12 MOP MAKER Immunizations Immunizations Current : Yes MANAN RAMÍREZ RN - 07/13/2016 19:10 MOP MAKER Source: [facility] [employer] Document Id: [id number] MOP MAKER!35 MAKER documented in this encounter Miscellaneous Notes Miscellaneous - Conversion, Historical Provider Ser - 07/13/2016 7:59 PM MOP MAKER Coding Summary-Paper Based CODING DATE: 07/19/2016 FINAL CA [facility] STATUS: * Discharged to Home or [...] 07/19/2016 06:33 am Source: [facility] [employer] Document Id: [id number] Miscellaneous - Lesli Sotomayor R.N. - 07/13/2016 7:58 PM CST Valuables/Belongings Valuables/Belongings Entered On: 07/13/2016 19:58 MOP MAKER Performed On: 07/13/2016 19:58 MOP MAKER by LESLI SOTOMAYOR RN Valuables/Jd Home Medication Disposition : None brought in with patient LESLI SOTOMAYOR RN - 07/13/2016 19:58 MOP MAKER Source: [facility] [employer] Document Id: [id number] MOP MAKER!3 MAKER Miscellaneous - Lesli Sotomayor R.N. - 07/13/2016 7:03 PM CST Facility Charge Ticket 2.0 11.0 DX Facility Charge Ticket 2.0 11.0 DX Entered On: 07/13/2016 19:59 MOP MAKER Performed On: 07/13/2016 19:03 MOP MAKER by LESLI SOTOMAYOR RN Facility Charge Ticket [...] Control : 4 Lynx Visit Level : 99157 Level 2 Treatments Prior to Arrival : None LESLI SOTOMAYOR RN - 07/13/2016 19:58 MOP MAKER Source: [facility] POWERCHART Document Id: [id number] MOP MAKER!17 MAKER documented in this encounter Plan of Treatment Not on filedocumented as of this encounter Visit Diagnoses Not on filedocumented in this encounter Additional Health Concerns Assessment Noted Time PHQ-9 Depression Total Score: 18 02/14/2013 9:53 AM CD T documented as of this encounter
--- OUTSIDE RECORDS SUMMARY | 2022-08-12 09:24 | XMS_ITS | Encounter Summary ---
:1960 Author Organization [facility] Address [address] [place] [address] Care Team Providers Name Role Phone Unavailable Primary Care Provider Unavailable Encounter Details Date Type Department Care Team Description 09/30/2016 Hospital Encounter HX [facility] Kevin lindquist M.D. [address] [place] [phone] (Wo rk) Social History Tobacco Use Types Packs/Day Years Used Date Smoking Tobacco: Never Sex Assigned at Date Recorded Not on file documented as of this encounter Last Filed Vital Signs Vital Sign Reading Time Taken Comments Blood Pressure 150/66 09/30/2016 6:32 PM INSULATOR TESTER Pulse 40 09/30/2016 6:32 PM INSULATOR TESTER Temperature - - Respiratory Rate - - Oxygen Saturation - - Inhaled Oxygen Concentration - - Weight 86.4 kg (190 lb 7.6 oz) 09/30/2016 6:32 PM INSULATOR TESTER Height 182.9 cm (6') 09/30/2016 6:32 PM INSULATOR TESTER Body Mass Index 25.83 09/30/2016 6:32 PM INSULATOR TESTER documented in this encounter Medications at Time [...] undergoing a panniculectomy on December 10 in [place]. He reports that with his last procedure, [...] No tobacco or alcohol. 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 SOCIAL HISTORY Date Time: 09/30/2016 18:32 [...] ECG; TITI WATTS MD, PhD 09/30/2016 19:25 INSULATOR TESTER Electronically Signed By: KEVIN BULLOCK MD On: 10/05/2016 07:04 AM Source: [employer] Document Id: [id number] LATOR TESTER documented in this encounter Miscellaneous Notes Telephone [...] 14:36:01 CDT From: KEVIN BULLOCK MD To: [place] [facility] Nurse Guajardo; Sent: 02/11/2017 14:36:01 [...] 11, 2017 08:28:01 CDT From: ANGEL NGUYEN ([place] [facility] Nurse [place]) To: KEVIN BLULOCK MD; Sent: 02/11/2017 08:28:01 CDT Subject: FW: *Phone Message This pretty much says it all, do you want me to call him? I'm assuming that your response will be he needs an appointment to discuss which will be out several weeks at best..... From: KRISTA PAPPAS ([place] [facility] Diesel Inspector) To: [place] [facility] Nurse Gu[place]; Sent: 02/11/2017 00:30:28 [...] missed the appointment. Please call him at [phone]. Advice/Action: Source used: ( ) Verbalizes understanding [...] back cell phone number ( ) Source: [facility] POWERCHART Document Id: [id number] Telephone Encounter - Conversion, Historical Provider Ser - 10/04/2016 9:19 AM CST *Phone Message Document Contains Addenda Addendum by KEVIN BULLOCK MD on October 06, 2016 09:35:19 INSULATOR TESTER From: KEVIN BULLOCK MD To: KEVIN BULLOCK MD; Sent: 10/06/2016 09:35:19 INSULATOR TESTER Subject: RE: *Phone Message Attempted to call patient to discuss cardiology recommendations. Addendum by VINEET RAMIREZ LPN on October 04, 2016 12:32:38 INSULATOR TESTER From: VINEET RAMIREZ LPN ([place] [facility] Nurse [place]) To: KEVIN BULLOCK MD; Sent: 10/04/2016 12:32:38 INSULATOR TESTER Subject: FW: *Phone Message From: MARY FELDER[place] Family Medicine Diesel Inspector) To: [place] [facility] Nurse Gu[place]; Sent: 10/04/2016 09:19:28 INSULATOR TESTER Subject: *Phone Message Caller is: ( X [...] back cell phone number ( ) Source: [facility] Document Id: [id number] Osbaldo - Angel Nguyen L.P.N. - 10/01/2016 7:38 AM CST Px Follow up questions From: ANGEL NGUYEN ([place] [facility] Nurse [place]) To: KEVIN BULLOCK MD; Sent: 10/01/2016 07:38:27 INSULATOR TESTER Subject: Px Follow up questions Client called [...] avoid stretching out his gastric pouch. Source: [facility] Document Id: [id number] Osbaldo - Kevin Bullock M.D. - 09/30/2016 7:32 PM INSULATOR TESTER Ambulatory Patient Summary [address] [place] [id number] Visit Information Name: NOEMÍ LUNA [facility] Number: [id number] Current Date: 09/30/2016 19:32:28 Physicians [...] once a day kidney stones Routed to [facility] , cyanocobalamin (cyanocobalamin 1000 mcg/mL injectable solution) 1 Milliliter, Subcutaneous, once a month vitamin B12 deficiency Routed to [facility] , *ferrous sulfate (ferrous sulfate 325 mg (65 mg elemental iron) oral tablet) 1 Tablet(s), Oral, two times a day furosemide (Lasix 40 mg oral tablet) 1 Tablet(s), Oral, once a day as needed for edema Leg Swelling This is a CHANGE Routed to [facility] , lisinopril (lisinopril 10 mg oral tablet) 1 Tablet(s), Oral, once a day blood pressure Routed to [facility] , *multivitamin with minerals (Flintstones Complete [...] if you dont have one. Go to [email or web address] and click on Create Your Account. Then, follow the directions to complete the online form. Youll be asked for your [facility] number which you can find at the top of this document. Your Goals/Additional instructions: Source: [facility] POWERCHART Document Id: [id number] LATOR TESTER Miscellaneous - Kevin Bullock M.D. - 09/30/2016 7:32 PM INSULATOR TESTER Ambulatory Discharge Medication List [place] - [address] [place] [id number] Visit Information Name: NOEMÍ LUNA [facility] Number: [id number] Current Date: 09/30/2016 19:32:25 Attending [...] once a day kidney stones Routed to [facility] , cyanocobalamin (cyanocobalamin 1000 mcg/mL injectable solution) 1 Milliliter, Subcutaneous, once a month vitamin B12 deficiency Routed to [facility] , *ferrous sulfate (ferrous sulfate 325 mg (65 mg elemental iron) oral tablet) 1 Tablet(s), Oral, two times a day furosemide (Lasix 40 mg oral tablet) 1 Tablet(s), Oral, once a day as needed for edema Leg Swelling This is a CHANGE Routed to [facility] , lisinopril (lisinopril 10 mg oral tablet) 1 Tablet(s), Oral, once a day blood pressure Routed to [facility] , *multivitamin with minerals (Flintstones Complete [...] MD Signed On:30-SEP-2016 19:32:14 Additional Information: Source: [facility] POWERCHART Document Id: [id number] LATOR TESTER Miscellaneous - Angel Nguyen L.P.N. - 09/30/2016 7:17 PM CST Obstructive Sleep Apnea Obstructive Sleep Apnea Entered On: 09/30/2016 19:18 INSULATOR TESTER Performed On: 09/30/2016 19:17 INSULATOR TESTER by ANGEL NGUYEN CELESTE Screening Known Obstructive Sleep Apnea : No - NOT diagnosed with CELESTE CELESTE Score : No qualifying data available. CELESTE Results : No qualifying data available. ANGEL NGUYEN - 09/30/2016 19:17 INSULATOR TESTER CELESTE Assessment Do you have high blood [...] : 8 ANGEL NGUYEN - 09/30/2016 19:17 INSULATOR TESTER Source: [facility] POWERCHART Document Id: [id number] INSULATOR TESTER!12 LATOR TESTER Miscellaneous - Angel Nguyen, L.P.N. - 09/30/2016 6:32 PM CST Adult Cord Splicer Intake/History Document Has Been Updated Adult Cord Splicer Intake/History Entered On: 09/30/2016 18:40 INSULATOR TESTER Performed On: 09/30/2016 18:32 INSULATOR TESTER by ANGEL NGUYEN Intake Actual Weight : 86.4 kg(Converted to: 190 lb 8 oz) Weight Source : Standing scale Dosing Weight Clinic : 86.4 kg ANGEL NGUYEN - 09/30/2016 19:16 INSULATOR TESTER Clinic BSA : 2.1 Body Mass Index : 25.83 kg/m2 ANGEL NGUYEN - 10/01/2016 7:38 INSULATOR TESTER Chief Complaint : Here for preop exam. [...] Room air ANGEL NGUYEN - 09/30/2016 18:32 INSULATOR TESTER Height : 182.88 cm(Converted to: 6 ft 0 inch(es), 72 inch(es)) ANGEL NGUYEN - 10/01/2016 7:38 INSULATOR TESTER General Info Information Given By : Patient Languages : Albanian Is Patient Female and 13-50 no hysterectomy : No ANGEL NGUYEN 09/30/2016 18:32 INSULATOR TESTER Subjective Pain Symptoms : ANGEL Torres 09/30/2016 18:32 INSULATOR TESTER Dependent Habits Exposure to Tobacco Smoke : Care provider denies smoking in home, Other: never Smoking Status : Never smoker Tobacco 2A : No Tobacco Use/Currently Using : No Tobacco Use/Last 30 Days : No Tobacco Use/Last 12 months : No Alcohol Use : No ANGEL NGUYEN 09/30/2016 18:32 INSULATOR TESTER Caffeine Use Grid Caffeine Use : Current Type : Coffee, Soft drinks Frequency : Weekly Amount : soda- weekly; coffee- 1x/week ANGEL NGUYEN 09/30/2016 18:32 INSULATOR TESTER Recreational Drug Use Grid Drug Use : None ANGEL NGUYEN 09/30/2016 18:32 INSULATOR TESTER Source: [facility] POWERCHART Document Id: [id number] INSULATOR TESTER!5 LATOR TESTER Miscellaneous - Sorin Wagner RAugustine - 09/02/2016 8:27 AM CST FYI; Fired from pharmacy From: SORIN WAGNER RN To: KEVIN BULLOCK MD; Sent: 09/02/2016 08:27:21 INSULATOR TESTER Subject: COLIN; Fired from pharmacy [facility] called and states that patient is no longer able to get his medications through their pharmacy. Patient has been notified. Source: [facility] POWERCHART Document Id: [id number] documented in this encounter Plan of Treatment Not on filedocumented as of this encounter Procedures Procedure Name Priority Date/Time Associated Comments Diagnosis CBC WITHOUT Routine 09/30/2016 7:35 PM Results f or this DIFFERENTIAL, B INSULATOR TESTER procedure ar e in the results section. HEMOGLOBIN A1C, B Routine 09/30/2016 7:35 PM Resu lts for this INSULATOR TESTER procedure are i n the results section. BASIC METABOLIC Routine 09/30/2016 7:35 PM Result s for this PANEL, S/P INSULATOR TESTER procedure are i n the results section. ECG Routine 09/30/2016 7:25 PM Results f or this INSULATOR TESTER procedure are i n the results section. documented in this encounter Results (ABNORMAL) CBC without Differential (09/30/2016 7:35 PM INSULATOR TESTER) Analysis Performed At Patho logist Time Signature Leukocytes 7.7 3.5 - 10.5 POWERCHART X109L Erythrocytes 3.93 (L) 4.32 - POWERCHART 5.72 [id number] Hemoglobin 12.5 (L) 13.5 - POWERCHART 17.5 GDL Hematocrit 36.8 (L) 38.8 - POWERCHART 50.0 MCV 93.6 81.2 - POWERCHART 95.1 FL HX RDW 13.1 11.8 - POWERCHART 15.6 Platelet Count 153 150 - 450 POWERCHART X109L Specimen (Source) Anatomical Collection Method Collection Time Re ceived Time Location / / Volume Laterality Blood 09/30/2016 7:35 PM INSULATOR TESTER Kevin Copeland M.D. LAB BLOOD ADD-ON Performing Organization Address City/State/ZIP Code Phon e Number POWERCHART BMP (Basic Metabolic Panel) (09/30/2016 7:35 PM INSULATOR TESTER) P athologist Signature Sodium, S 138 135 [...] POWERCHART MMOLL HXeGFR (MDRD) >60 >=60 POWERCHART [id number] eGFR >60 >=60 POWERCHART Black/ [id number] French Glucose 117 70 - 139 POWERCHART MGDL Specimen (Source) Anatomical Collection Method Collection Time Re ceived Time Location / / Volume Laterality Blood 09/30/2016 7:35 PM INSULATOR TESTER Kevin Copeland M.D. LAB BLOOD ADD-ON Performing Organization Address City/State/ZIP Code Phon e Number POWERCHART Hemoglobin A1c (09/30/2016 7:35 PM INSULATOR TESTER) P athologist Signature Hemoglobin A1c, 5.1 <=5.6 A1C POWERCHART B Specimen (Source) Anatomical Collection Method Collection Time Re ceived Time Location / / Volume Laterality Blood 09/30/2016 7:35 PM INSULATOR TESTER Kevin Copeland M.D. LAB BLOOD ADD-ON Performing Organization Address City/State/ZIP Code Phon e Number POWERCHART ECG 12 Lead (09/30/2016 7:25 PM INSULATOR TESTER) Specimen (Source) Anatomical Collection Method Collection Time Re ceived Time Location / / Volume Laterality 09/30/2016 7:25 PM INSULATOR TESTER [facility] - 09/30/2016 7:25 PM INSULATOR TESTER Test Reason : PREOP Blood Pressure : [...] Organization Address City/State/ZIP Code Phon e Number [facility] [address] [place] [phone] documented in this encounter Visit Diagnoses Not on filedocumented in this encounter Additional Health Concerns Assessment Noted Time PHQ-9 Depression Total Score: 18 02/14/2013 9:53 AM CD T documented as of this encounter
--- OUTSIDE RECORDS SUMMARY | 2022-08-12 09:24 | XMS_ITS | Encounter Summary ---
:1960 Author Organization [facility] Address [address] [place] [address] Care Team Providers Name Role Phone Cintia Cobb M.D. Primary Care Provider [phone] Reason for Visit Reason Onset Date Comments pacemaker issues 07/20/2017 almost fell Encounter Details Date Type Department Care Team Description 07/20/2017 Clinical Department of [place] pacemaker issu es Communication Family Medicine, Cintia Copeland (almost fell) Jose Daniel Piper M.D. [facility], in [address] [address] [place], [place] [phone] (Work) [phone] Social History Tobacco Use Types Packs/Day Years [...] surgeries he wants the anaya doctor from [place] to remove his pacemaker and do it for free as she did not follow his living will. Patient expressed a lot of anger at the provider who put in his pacemaker. Please call patient to discuss. TIVE RETOUCHER documented in this encounter Plan of Treatment Not on filedocumented as of this encounter Visit Diagnoses Not on filedocumented in this encounter Additional Health Concerns Assessment Noted Time PHQ-9 Depression Total Score: 18 02/14/2013 9:53 AM CD T documented as of this encounter Care Teams Solar Energy System Installer Helper Relationship Specialty Start Date End Date Cintia Cobb M.D. PCP - General 02/19/17 02/20/[address] [place] [phone] documented as of this encounter
--- OUTSIDE RECORDS SUMMARY | 2022-08-12 09:24 | XMS_ITS | Encounter Summary ---
:1960 Author Organization [facility] Address [address] [place] [address] Care Team Providers Name Role Phone Unavailable Primary Care Provider Unavailable Encounter Details Date Type Department Care Team Description 04/07/2016 Hospital Encounter HX [facility] Angélica Jolley M.D. [address] [place], [place] [phone] (Wo rk) Social History [...] Erythrocytes 3.53 (L) 4.32 - POWERCHART 5.72 [id number] Hemoglobin 11.4 (L) 13.5 - POWERCHART 17.5 [...] esting for FH and FDB is available [facility]: FH/ADH Genetic Reflex Luu el (test ADHP). Acquired (non-genetic) causes of markedly increased LDL cholesterol include cholestatic liver disease due to the presence of LpX. If a genetic form of hypercholesterolemia is suspected, family studies including biochemical testing fo r lipids (total cholesterol,triglycerides, LDL cholesterol and HDL cholesterol) are recommended. ??Please contact the laboratory at or the on-line test catalog at [email or web address] for information about how to order these [...] (04/07/2016 6:05 PM CDT) [facility] Time Signature Creatinine 1.55 (H) 0.60 - POWERCHART 1.30 MGDL HXeGFR (MDRD) 46 (L) >=60 POWERCHART [id number] eGFR 56 (L) >=60 POWERCHART Black/ [id number] Bahraini Specimen (Source) Anatomical Collection Method Collection Time Re ceived Time Location / / Volume Laterality Blood 04/07/2016 6:05 PM CDT Renetta Jolley M.D. LAB BLOOD ADD-ON Performing Organization Address City/[facility]/ZIP Code Phon e Number POWERCHART Ferritin (04/07/2016 6:05 PM CDT) athologist Signature Ferritin, S 102 24 - 336 POWERCHART MCGL Comment: Test Performed by: [facility] [place] [address] Java Scala Developer: Rene oGmez II, M.D., Ph.D. Specimen (Source) Anatomical Collection [...] [facility]/ZIP Code Phon e Number POWERCHART 25-Hydroxyvitamin D2 [...] within this r vivienne. Test Performed by: [address] [address] Java Scala Developer: Rene Gomez II, M.D., Ph.D. Specimen (Source) [...]
--- OUTSIDE RECORDS SUMMARY | 2022-08-12 09:24 | XMS_ITS | Encounter Summary ---
:1960 Author Organization [facility] Address [address] [place] [address] Care Team Providers Name Role Phone Cintia Cobb M.D. Primary Care Provider [phone] Encounter Details Date Type Department Care Team Description 02/05/2017 Confidential HX RST NO MAPPING Jennifer Shaffer M.D. [address] [place], [place] [phone] (Wo rk) Social History Tobacco Use Types Packs/Day Years Used Date Smoking Tobacco: Never Sex Assigned at Date Recorded Not on file documented as of this encounter Progress Notes Jennifer Shaffer M.D. - 02/05/2017 10:08 AM CDT DEMOGRAPHIC INFORMATION Clinic Number: [id number] Patient Name: Laz Luna Age: 56 Y Birthdate: 1960 Sex: M [address] [facility] City: [place] [address] CONFIDENTIAL NOTE Service Date/Time: 05-Feb-2017 10:08 Provider: Jennifer Shaffer MD Pager: [phone] Service: CV Type/Desc: MIS Status: Fnl Revision #: 1 CHIEF COMPLAINT/PURPOSE OF VISIT Note created for correspondence purposes only on behalf of Mr. Zane Pineda. Original: [email or web address] Electronically Signed: 04-Mar-2017 10:34 by Shama Shaffer MD Clinical Notes - [id number] Id: [id number] Status: Fnl documented in this encounter Plan of Treatment Not on filedocumented as of this encounter Visit Diagnoses Not on filedocumented in this encounter Additional Health Concerns Assessment Noted Time PHQ-9 Depression Total Score: 18 02/14/2013 9:53 AM CD T documented as of this encounter Care Teams Editorial Specialist Relationship Specialty Start Date End Date Cintia Cobb M.D. PCP - General 02/19/17 02/20/[address] [place] [phone] documented as of this encounter
--- OUTSIDE RECORDS SUMMARY | 2022-08-12 09:24 | XMS_ITS | Encounter Summary ---
:1960 Author Organization [facility] Address [address] [place] [address] Care Team Providers Name Role Phone Unavailable Primary Care Provider Unavailable Encounter Details Date Type Department Care Team Description 01/05/2017 Hospital Encounter HX [facility] Angeline ZABALA Cha, ei, M.D. [address] [place], [place] [phone] (Wo rk) Social History Tobacco Use Types [...] Summary-Paper Based CODING DATE: 01/09/2017 FINAL [place] [facility] STATUS: * Discharged to Home or Self [...] HICKMAN Date Saved: 01/09/2017 01:03 pm [facility] Document Id: [id number] documented in this encounter Plan of Treatment Not on filedocumented as of this encounter Visit Diagnoses Not on filedocumented in this encounter Additional Health Concerns Assessment Noted Time PHQ-9 Depression Total Score: 18 02/14/2013 9:53 AM CD T documented as of this encounter
--- OUTSIDE RECORDS SUMMARY | 2022-08-12 09:24 | XMS_ITS | Encounter Summary ---
:1960 Author Organization [facility] Address [address] [place] [address] Care Team Providers Name Role Phone Unavailable Primary Care Provider Unavailable Encounter Details Date Type Department Care Team Description 01/05/2017 Hospital [facility] Angeline LECHUGA Cha, ei, M.D. [address] [place], [place] [phone] (Wo rk) Social History Tobacco Use Types [...] Summary-Paper Based CODING DATE: 01/09/2017 FINAL CA [facility] STATUS: * Discharged to [...] HICKMAN Date Saved: 01/09/2017 04:56 pm Source: [employer] Document Id: [id number] documented in this encounter Plan of Treatment [...] Volume Laterality 01/05/2017 4:51 PM CDT [facility] - 01/05/2017 4:51 PM CDT [...] Organization Address City/State/ZIP Code Phon e Number [facility] [address] [place] [phone] documented in this encounter Visit Diagnoses Not on filedocumented in this encounter Additional Health Concerns Assessment Noted Time PHQ-9 Depression Total Score: 18 02/14/2013 9:53 AM CD T documented as of this encounter
--- OUTSIDE RECORDS SUMMARY | 2022-08-12 09:24 | XMS_ITS | Encounter Summary ---
:1960 Author Organization [facility] Address [address] [place] [address] Care Team Providers Name Role Phone Kevin Bullock M.D. Primary Care Provider [phone] Encounter Details Date Type Department Care Team Description 06/02/[address] [facility] [place] Kevin Aguirre M.D. [address] [place] [address] [phone] (Wo rk) Social History Tobacco Use Types [...] Ordered: OV Est Pt Level 4 - 09379 - 25 min Protein Electrophoresis*-[place] 43147 2. Anemia Hemoglobin has improved. Patient is not consistently taking the iron but this is likely having someaffect. Ordered: OV Est Pt Level 4 - 06712 - 25 min 3. Pacemaker Cardiac S/P Pacemaker site is well healed. Patient continues to believe that many of his current symptoms are related to his pacemaker although I cannot definitely explain how that would occur unless it is simplyrelated to altered physiology with a normal heartbeat. Ordered: OV Est Pt Level 4 - 62687 - 25 min 4. DM2 Blood sugars are acceptable by report. Patient will be due for an A1c in 3 months. Ordered: OV Est Pt Level 4 - 58609 - 25 min 5. Hypertension HTN NOS Patient occasionally has lower blood pressures. Orthostatics were obtained today and normal. Ordered: OV Est Pt Level 4 - 80361 - 25 min Orders: furosemide, 1-2 tab(s), PO, Daily, Leg Swelling, # 180 tab(s), 3 Refill(s), Maintenance, Pharmacy: [id number] gabapentin, 300 mg = 1 cap(s), PO, 2xDay, with 600mg tablet, # 90 cap(s), 6 Refill(s), Maintenance,Pharmacy: [id number] gabapentin, 600 mg = 1 tab(s), PO, 2xDay, with 300mg tab, # 180 tab(s), 11 Refill(s), Maintenance, Pharmacy: [id number] Electronically Signed By: KEVIN BULLOCK MD On: 06/03/2017 06:47 AM Source: [employer] Document Id: [id number] documented in this encounter Nursing Notes Alvina [...] LANGSTON LPN - 06/02/2017 18:45 CDT Source: [employer] Document Id: [id number] CDT!20 documented in this encounter Miscellaneous Notes Telephone Encounter - Conversion, Historical Provider Ser - 07/09/2017 2:37 PM CDT *Phone Message Document Contains Addenda Addendum by VINEET RAMIREZ LPN on July 09, 2017 15:52:03 CDT please see other message dated 07/09 regarding the subject below. From: HADLEY PARISH ([facility] X Ray Developing Machine Operator) To: [place] [facility] Nurse Bennett; Sent: 07/09/2017 14:37:41 [...] op.. I tried to schedule him an medical receptionist medical assistant appt and he says that will not work. He says it has to be 21st or 28th at 6:15 or 6:30 in the evening. He will not see any other doctor, but Duncan. He is very upset no one has tried to call him back and wants someone to call him right away. [phone] and keep trying. Message: Advice/Action: Source used: [...] back cell phone number ( ) Source: [facility] POWERCHART Document Id: [id number] Telephone Encounter - Brit Felder - 06/20/2017 9:17 AM CDT *Phone Message Document Contains Addenda Addendum by HARVEY REDDY LPN on June 23, 2017 11:14:59 CDT Rere called patient, no answer left message. Addendum by HARVEY REDDY LPN on June 23, 2017 10:41:54 CDT From: HARVEY REDDY LPN ([place] [facility] Nurse Guajardo) To: ANA CRISTINA FERRELL RN; Sent: 06/23/2017 10:41:54 CDT Subject: FW: *Phone Message From: BRIT FELDER ([facility] X Ray Developing Machine Operator) To: [place] [facility] Nurse Guajardo; Sent: 06/20/2017 09:17:38 [...] back cell phone number ( ) Source: [facility] POWERCHART Document Id: [id number] Miscellaneous - Kevin Bullock M.D. - 06/09/2017 7:10 PM CDT referral Document Contains Addenda Addendum by RAYMOND DIAZ on June 11, 2017 10:43:33 CDT From: RAYMOND DIAZ ([facility] Canine Service Instructor Trainer/Referrals) To: KEVIN BULLOCK MD; Sent: 06/11/2017 10:43:33 CDT Subject: RE: referral Referral faxed to [place]. They will contact patient to schedule an appointment. From: KEVIN BULLOCK MD To: [place] [facility] Canine Service Instructor Trainer/Referrals; Sent: 06/09/2017 19:10:00 CDT Subject: referral Referral Request Date: 06/09/2017 Provider: Kevin Whyte [facility] Type of [facility]erral/Department: Neurology Specific Clinical Question: Peripheral neuropathy Pertinent History: _ Best Appointment Days to Avoid: Best Time of day: Date/Time of appointment made: Sign off: Source: [facility] POWERCHART Document Id: [id number] Miscellaneous - Conversion, Historical Provider Ser - [...] 2017 08:37:43 CDT From: HARVEY REDDY LPN ([place] [facility] Nurse Guajardo) To: ART RN [...] done. He was rude and uncooperative. Source: [facility] [employer] Document Id: [id number] Miscellaneous - Kevin Bullock M.D. - 06/02/2017 7:15 PM CDT Ambulatory Patient Summary [address] [id number] Visit Information Name: NOEMÍ LUNA [facility] Number: [id number] Current Date: 06/02/2017 19:15:22 Physicians [...] once a day Leg Swelling Routed to [facility] , gabapentin (gabapentin 300 mg oral capsule) 1 cap, Oral, two times a day with 600mg tablet This is aCHANGE gabapentin (gabapentin 600 mg oral tablet) 1 Tablet(s), Oral, two times a day with 300mg tab Routed to [facility] , multivitamin with minerals (Flintstones Complete [...] for your [facility] number which you can find at the top of this document. Your Goals/Additional instructions: Source: [facility] POWERCHART Document Id: [id number] Miscellaneous - Kevin Bullock M.D. - 06/02/2017 7:15 PM CDT Ambulatory Discharge Medication List [address] [id number] Visit Information Name: NOEMÍ LUNA [facility] Number: [id number] Current Date: 06/02/2017 19:15:19 Attending [...] once a day Leg Sw[facility] , gabapentin (gabapentin 300 mg oral capsule) 1 cap, Oral, two times a day with 600mg tablet This is aCHANGE gabapentin (gabapentin 600 mg oral tablet) 1 Tablet(s), Oral, two times a day with 300mg tab [facility] , multivitamin with minerals (Flintstones Complete [...] MD Signed On:02-JUN-2017 19:15:10 Additional Information: Source: [facility] [employer] Document Id: [id number] Miscellaneous - Alvina Langston, L.P.N. - 06/02/2017 [...] LANGSTON LPN - 06/02/2017 18:04 CDT Source: [facility] [employer] Document Id: [id number] CDT!9 Miscellaneous - Alvina Langston, L.P.N. - 06/02/2017 5:59 PM CDT Adult Scholarship Counselor Intake/History Adult Scholarship Counselor Intake/History Entered On: 06/02/2017 18:04 CDT Performed [...] Preferred Communication Mode : Verbal Languages : Kinyarwanda Is Patient Female and 13-50 no hysterectomy [...] ALVINA LANGSTON LPN 06/02/2017 17:59 CD[address] [facility] POWERCH[facility] Document Id: [id number] CDT!46 Sorin Mallory RKevin. - 06/02/2017 2:50 PM CDT Visit From: SORIN WAGNER RN Sent: 06/02/2017 14:50:38 CDT Subject: Visit Attempted to call all 3 numbers for patient in chart to confirm appointment for tonight. No answer. LVM on patients personal cell. Source: [facility] [employer] Document Id: [id number] Nichelle Shoemaker - 06/01/2017 3:51 PM CDT Health Maintenance Reminder June 01, [address] [facility] [phone] Dear NOEMÍ LUNA, We have developed a [...] visit with us more convenient. Please call [phone] to schedule services that are past due or that may shortly become due (thank you if you have already done so). We will follow up in three to six months should you have more services to schedule at that time. If you have already received any of the listed past due or upcoming services outside of [facility], please call [phone] to add them to your medical record. You may want to consider contacting your health insurance company to make sure these services are covered and find out if there will be any qlj-gu-slqowm expense. If you have any questions about the services listed above, or if you are no longer receiving care from [facility], please contact us at [phone]. Thank you for partnering to provide you with the best care possible. We encourage you to set up your Patient Online Services account [employer]/etqrpeb-meigou-udhpnmqw, where you can communicate in a convenient way with us, schedule appointments, receive lab results and more. To set up your account, you will need your [facility] Number, which is [phone]. Thank you for choosing the Kevin Copeland M.D. care team for your health care needs! You are receiving this notice based on [facility]'s recommended standard for preventive care and ongoing condition-specific services you may need. If you have completed or do not believe you need these services, please contact your provider or care team to discuss this further. Sincerely, NICHELLE HOLLIS Electronic Signature Electronically Signed By: NICHELLE HOLLIS On: June 01, 2017 This document has images extracted. Source: [employer] POWERCHART Document Id: [id number] documented in this encounter Plan of Treatment [...] POWERCHART S GMDL Comment: Test Performed by: [facility] - [address] [address] Albumin, S 3.3 (L) 3.4 - 4.7 GMDL POWERCHART Alpha-1 Globulin 0.3 0.1 - 0.3 GMDL POWERCHA RT Alpha-2 Globulin 1.1 (H) 0.6 - 1.0 GMDL POWERCHA RT Beta-Globulin 0.9 0.7 - 1.2 GMDL POWERCHART Gamma-Globulin 1.2 0.6 - 1.6 GMDL POWERCHART A/G Ratio 0.95 POWERCHART Impression See Comment POWERCHART Comment: RESULT: No apparent monoclonal protein o n serum electrophoresis. Test Performed by: [facility] - [address] [address] Specimen (Source) Anatomical Collection Method Collection Time [...] documented as of this encounter Care Teams Burner Operator Relationship Specialty Start Date End Date Kevin Bullock M.D. PCP - General 02/19/17 02/20/[address] [place] [address] [phone] documented as of this encounter
--- OUTSIDE RECORDS SUMMARY | 2022-08-12 09:24 | XMS_ITS | Encounter Summary ---
:1960 Author Organization [facility] Address [address] [place] [address] Care Team Providers Name Role Phone Unavailable Primary Care Provider Unavailable Encounter Details Date Type Department Care Team Description 04/29/2016 Hospital Encounter HX [facility] [place] Kevin Aguirre M.D. [address] [place] [phone] (Wo rk) Social History Tobacco Use [...] has been seen by plastic surgery in [place] to discuss a panniculectomy due to his [...] pannus. Pictures were taken and uploaded to [employer]. LAB RESULTS Sodium Lvl: 137.3 05/12/15 Potassium [...] Absolute: 4.17 04/07/16 Lymph Absolute: 1.55 04/07/16 [place] Absolute: 0.55 04/07/16 Eos Absolute: 0.12 04/07/16 Baso Absolute: 0.02 04/07/16 Differential?: Auto 05/12/15 IMPRESSION/REPORT/PLAN 1. DM2 A1c looks great at 5.6. Encouraged patient to continue with healthy diet. I would also like him to check his blood sugars a couple times per month. Ordered: OV Est Pt Level 4 - 32677 - 25 min 2. Bradycardia NOS Heart rate continues in the 40s which is not unusual for patient. With his blood pressure being so good, we are going to stop his metoprolol and have him check his blood pressure and pulse a couple times per week. Ordered: OV Est Pt Level 4 - 44908 - 25 min 3. Hypertension HTN NOS As per #2. Stop metoprolol and monitor. We will call in 1 month for a followup. Ordered: OV Est Pt Level 4 - 13318 - 25 min 4. Insufficiency Renal NOS Creatinine in early April was 1.55. On recheck today it is better. We discussed that taking such high doses of diuretics can certainly cause that to go up. Ordered: OV Est Pt Level 4 - 60024 - 25 min 5. Hyperlipidemia NOS Lipid panel was at goal. He does not need a statin currently. Ordered: OV Est Pt Level 4 - 97973 - 25 min 6. Tinea Groin Perianal Area Pictures were taken of his tinea infection. His plastic surgeon will be updated. He can continue with powder. Ordered: OV Est Pt Level 4 - 50948 - 25 min 7. Retention Fluid We restarted Lasix 40 mg daily as needed for weight gain. Again advised that he should not take really high doses because it affects his kidney function. Ordered: OV Est Pt Level 4 - 64244 - 25 min Orders: furosemide, 40 mg = 1 tab(s), PO, Daily, PRN edema, Leg Swelling, # 90 tab(s), 3 Refill(s), Maintenance, Pharmacy: [id number] Electronically Signed By: KEVIN KILGORE MD On: 04/30/2016 06:30 AM Source: [facility] POWERCHART Document Id: [id number] documented in this encounter Miscellaneous Notes Telephone Encounter - Conversion, Historical Provider Ser - 09/01/2016 1:29 PM CST *Phone Message Document Contains Addenda Addendum by JUDITH PATE LPN on September 02, 2016 08:26:09 JUVENILE OFFICER pharmacy changed in chart per request. From: ANUSHA MAURICE To: ART Family Medicine Nurse Bennett; Sent: 09/01/2016 13:29:58 JUVENILE OFFICER Subject: *Phone Message Caller is: (X ) Patient ( ) Mother ( ) Father ( ) Spouse ( ) Daughter ( ) Son ( ) Pharmacy ( ) Other: Physician: Kevin Kilgore Patient MRN #: Reason for Call: Switched Pharmacy's Message: Patient called to state that he switched from [facility] to [facility] in [place]. Any question please call [phone]. No voice mail Advice/Action: Source used: ( [...] back cell phone number ( ) [facility] Document Id: [id number] Telephone Encounter - Conversion, Historical Provider Ser [...] 18:23:07 CDT From: KEVIN KILGORE MD To: [place] Family Medicine Nurse Bennett; Sent: 06/10/2016 18:23:07 [...] 2016 14:16:35 CDT From: ANOOP QUEVEDO LPN ([place] [facility] Medicine Nurse Guajardo) To: KEVIN KILGORE MD; Sent: 06/10/2016 14:16:35 CDT Subject: FW: *Phone Message Please advise as our medication list shows he is taking Lasix 40mg Prn. Thanks Anoop From: MARTI CHOI I ([place] [facility] Medicine Tap Puller) To: [place] Family Medicine Nurse Bennett; Sent: 06/10/2016 13:19:55 [...] he takes 2/day. Pharmacy is [facility] in [place]. Patient is hard to reach by phone, but number is [phone]. Advice/Action: Source used: ( ) Verbalizes understanding [...] back cell phone number ( ) Source: [facility] POWERCHART Document Id: [id number] Miscellaneous - Kevin Cobb M.D. - 04/30/2016 [...] (MDRD) >60 mL/min/1.73m2 (>=60 - ) Source: [facility] POWERCHART Document Id: [id number] Telephone Encounter - Conversion, Historical Provider Ser [...] 2016 08:45:43 CDT From: HARVEY REDDY LPN ([facility] Medicine Nurse Guajardo) To: KEVIN KILGORE MD; Sent: 04/30/2016 08:45:43 CDT Subject: FW: *Phone Message From: MARTI CHOI I ([place] Family Medicine Tap Puller) To: [place] Family Medicine Nurse Guajardo; Sent: 04/30/2016 08:11:07 [...] was eating, he occasionally has pizza from [employer]. He also meant to ask her about a problem with his nose running a lot. It is an issue his father had and was never able to be diagnosed, he is wondering if Dr Song would have any thoughts regarding this. Cell number is [phone], home number is [phone]. Advice/Action: Source used: ( ) Verbalizes understanding [...] back cell phone number ( ) Source: [facility] POWERCHART Document Id: [id number] Miscellaneous - Kevin Cobb M.D. - 04/30/2016 6:35 AM CDT Reminder Msg Document Contains Addenda Addendum by ANGEL NGUYEN on June 02, 2016 14:46:51 CDT Done, see message dated 06/02/16. From: KEVIN KILGORE MD To: [place] Family Medicine Nurse Bennett; Sent: 04/30/2016 06:35:09 CDT Show up: 05/31/2016 06:35:00 CDT Subject: Reminder Msg Please Remember to: Please call patient for BP and pulse readings. You will speak with his Julissa. Kevin Segura PATIENT: ( ) Call Patient ( ) Ask Patient to ( ) ( ) Call Relative ( ) Schedule Patient ( ) ( ) Call for Dealer Relationship Manager ( ) Follow up on Results ( ) Other: PROVIDER: ( ) Call Physician ( ) Call Pharmacist ( ) Call Lab ( ) Other: Special Instructions: Comments: Source: [facility] POWERCHART Document Id: [id number] Miscellaneous - Kevin Cobb M.D. - 04/29/2016 7:24 PM CDT Ambulatory Patient Summary [address] [id number] Visit Information Name: NOEMÍ LUNA [facility] Number: [id number] Current Date: 04/29/2016 19:24:41 [...] Swelling This is a CHANGE Routed to [address] [address] *multivitamin with minerals (Flintstones Complete [...] if you dont have one. Go to [email or web address] and click on Create Your Account. Then, follow the directions to complete the online form. Youll be asked for your [facility] number which you can find at the top of this document. Your Goals/Additional instructions: Source: [facility] POWERCHART Document Id: [id number] Miscellaneous - Kevin Cobb M.D. - 04/29/2016 7:24 PM CDT Ambulatory Discharge Medication List [address] [id number] Visit Information Name: NOEMÍ LUNA [facility] Number: [id number] Visit Date: 04/29/2016 19:24:41 [...] Swelling This is a CHANGE Routed to [address] [address] *multivitamin with minerals (Flintstones Complete oral tablet, [...] MD Signed On:29-APR-2016 19:24:36 Additional Information: Source: [facility] POWERCHART Document Id: [id number] Miscellaneous - Alvina Langston, L.P.N. - 04/29/2016 6:33 PM CDT Adult Mural Artist Intake/History Adult Mural Artist Intake/History Entered On: 04/29/2016 18:37 CDT Performed [...] it 181 from home scale. ALVINA LANGSTON [facility] - 04/29/2016 18:33 CDT General Info Information Given By : Patient Preferred Communication Mode : Verbal Languages : Arabic Is Patient Female and 13-50 no hysterectomy : No ALVINA LANGSTON [facility] - 04/29/2016 18:33 CDT Subjective Pain [...] No Alcohol Use : No ALVINA LANGSTON [facility] - 04/29/2016 18:33 CDT Caffeine Use Grid Caffeine Use : Current Type : Coffee, Soft drinks Frequency : Weekly Amount : soda- weekly; coffee- 1x/week ALVINA LANGSTON [facility] - 04/29/2016 18:33 CDT Recreational Drug Use Grid Drug Use : None ALVINA LANGSTON [facility] - 04/29/2016 18:33 CDT Source: [facility] POWERCHART Document Id: [id number] CDT!40 documented in this encounter Plan of [...] MGDL HXeGFR (MDRD) 54 (L) >=60 POWERCHART [id number] eGFR >60 >=60 POWERCHART Black/ [id number] Albanian Specimen (Source) Anatomical Collection Method Collection Time [...]
--- OUTSIDE RECORDS SUMMARY | 2022-08-12 09:24 | XMS_ITS | Encounter Summary ---
:1960 Author Organization [facility] Address [address] [place] [address] Care Team Providers Name Role Phone Unavailable Primary Care Provider Unavailable Encounter Details Date Type Department Care Team Description 01/19/2017 - Hospital Encounter HX RST [facility] 4B Jennifer Shaffer, 01/20/2017 M.D. [address] [place] [address] Social History Tobacco Use Types Packs/Day Years [...] Respiratory Rate 14 01/20/2017 11:00 Value from [facility] rtplus. AM CDT Oxygen Saturation - - Inhaled Oxygen - - Concentration Weight 86 kg (189 lb 9.5 01/19/2017 12:46 Vital sign result oz) PM CDT from [facility]. Height 183 cm (6' 0.05) 01/19/2017 12:46 Vital sign result PM CDT from [facility]. Body Mass Index 25.68 01/19/2017 12:46 PM [...] Signature Sodium, S 140 135 - 145 [facility] MMOL/L [facility] Potassium, S 4.4 3.6 - 5.2 [facility] MMOL/L [facility] Chloride, S 102 98 - 107 [facility] MMOL/L [facility] HX Bicarbonate, 25 22 - 29 [facility] P/S MMOL/L [facility] Creatinine 1.0 0.8 - 1.3 [facility] MG/DL [facility] eGFR >60 >60 [facility] Non-Black/Afric ML/MIN/BSA LABORATORIES - an Beninese [facility] eGFR-Black/Afri >60 >60 [facility] can Beninese ML/MIN/BSA LABORATORIES - [facility] BUN (Blood Urea 23 8 - 24 [facility] Nitrogen), S MG/DL [facility] Anion Gap 13 7 - 15 [facility] Glucose, S 95 70 - 140 [facility] MG/DL [facility] [place] Specimen Anatomical Collection Method Collection Time Receive d Time (Source) Location / / Volume Laterality 01/20/2017 6:01 AM 7 6:01 CDT AM CDT Maricel Reyes APRN, C.N.P., M.S.N. LAB BLOOD ADD-ON Performing Organization Address City/[facility]/ZIP Code Phon e Number [facility] LABORATORIES - [address] [place], [place] [address] [facility] Magnesium (01/20/2017 6:01 AM CDT) P athologist Signature Magnesium, S 2.1 1.7 - 2.3 [facility] MG/DL [facility] Specimen Anatomical Collection Method Collection Time Receive d Time (Source) Location / / Volume Laterality 01/20/2017 6:01 AM 7 6:01 CDT AM CDT Maricel Reyes APRN, C.N.P., M.S.N. LAB BLOOD ADD-ON Performing Organization Address City/State/[facility] Code Phon e Number [facility] LABORATORIES - [address] [place] [phone] [facility] (ABNORMAL) CBC without Differential (01/20/2017 6:01 AM CDT) Patholo gist Method Time Signature Hemoglobin 11.5 (L) 13.5 - [facility] 17.5 G/DL [facility] Hematocrit 34.0 (L) 38.8 - [facility] 50.0 % [facility] RBC Distrib 15.0 11.8 - [facility] Width 15.6 % [facility] Platelet Count 131 (L) 150 - 450 [facility] X10(9)/L [facility] Leukocytes 7.2 3.5 - [facility] 10.5 LABORATORIES - X10(9)/L [facility] Erythrocytes 3.52 (L) 4.32 - [facility] 5.72 LABORATORIES - X10(12)/L [facility] MCV 96.6 (H) 81.2 - [facility] 95.1 FL [facility] Specimen Anatomical Collection Method Collection Time Receive d Time (Source) Location / / Volume Laterality 01/20/2017 6:01 AM 7 6:01 CDT AM CDT Maricel Reyes APRN, C.N.P., M.S.N. LAB BLOOD ADD-ON Performing Organization Address City/[facility]/ZIP Code Phon e Number [facility] LABORATORIES - [address] [place], [place] [address] [facility] ECG 12 Lead (01/20/2017 5:46 AM CDT) Specimen (Source) Anatomical Collection Method Collection Time Re ceived Time Location / / Volume Laterality 01/20/2017 5:46 AM CDT Narrative HISTORICAL [facility] CONVERSION - 8:43 AM CDT [id number] 05:46 VENTRICULAR RATE 57 Dual chamber electronic pacemaker Sinus rhythm When compared with ECG of 05-JAN-2017 16 :51, Significant changes have occurred [id number]^CARLOS MENDEZ^SHUKRI Procedure Note Shukri Barroso M.D. - 11/26/2017Formatt ing of this note might be different from the original. [id number] 05:46 VENTRICULAR RATE 57 Dual chamber electronic pacemaker Sinus rhythm When compared with ECG of 05-JAN-2017 16 :51, Significant changes have occurred [id number]^CARLOS MENEDZ^SHUKRI Jennifer Shaffer M.D. ECG ORDERABLES Performing Organization Address City/[facility]/ZIP Code Phon e Number HX RAYMUNDO CONVERSION HISTORICAL [facility] CONVERSION (ABNORMAL) ACT (Activated Clotting Time), POCT (01/19/2017 2:30 PM CDT) [facility] Method Time Signature Activated 177 (H) 84 - 139 [facility] Clotting Time, SEC LABORATORIES - POCT [facility] Specimen Anatomical Collection Method Collection Time Receive d Time (Source) Location / / Volume Laterality 01/19/2017 2:30 PM 7 2:30 CDT PM CDT Historical Provider LAB POCT ORDERABLES - DEVICE Performing Organization Address City/[facility]/ZIP [facility] Ph[place] e Number [facility] LABORATORIES - [address] [place], [place] [address] [facility] (ABNORMAL) ACT (Activated Clotting Time), POCT (01/19/2017 2:09 PM CDT) [facility] [employer] Method Time Signature Activated 238 (H) 84 - 139 [facility] Clotting Time, [facility] LAB[facility]ATORIES - POCT [facility] Specimen Anatomical Collection Method Collection Time Receive d Time (Source) Location / / Volume Laterality 01/19/2017 2:09 PM 7 2:09 CDT PM CDT Historical Provider LAB POCT ORDERABLES - DEVICE Performing Organization Address City/[facility] Code Phon e Number [facility] LABORATORIES - [address] [place] [phone] [facility] (ABNORMAL) ACT (Activated Clotting Time), POCT (01/19/2017 12:48 PM CDT) [facility] gist Method Time Signature Activated 287 (H) 84 - 139 [facility] Clotting Time, [facility] LAB[facility]ATORIES - POCT [facility] Specimen Anatomical Collection Method Collection Time Receive d Time (Source) Location / / Volume Laterality 01/19/2017 12:48 01/19/2017 PM CDT 12:48 PM CDT Historical Provider LAB POCT ORDERABLES - DEVICE Performing Organization Address City/[facility] Code Phon e Number [facility] LABORATORIES - [address] [place], [place] [address] [facility] documented in this encounter Visit Diagnoses Not on filedocumented in this encounter Additional Health Concerns Assessment Noted Time PHQ-9 Depression Total Score: 18 02/14/2013 9:53 AM CD T documented as of this encounter
--- OUTSIDE RECORDS SUMMARY | 2022-08-12 09:24 | XMS_ITS | Encounter Summary ---
:1960 Author Organization [facility] Address [address] [place] [address] Care Team Providers Name Role Phone Unavailable Primary Care Provider Unavailable Encounter Details Date Type Department Care Team Description 08/01/2016 Hospital Encounter HX [facility] Cintia Bullock M.D. [address] [place] [phone] (Wo rk) Social History Tobacco Use [...] 182 cm (5' 11.65) 08/01/2016 1:56 PM AIR CARGO AGENT Body Mass Index - - documented in [...] Cintia Bullock M.D. - 08/01/2016 3:51 PM AIR CARGO AGENT Results Notification Document Contains Addenda Addendum by TIFFANY DEAN LPN on August 04, 2016 12:34:40 AIR CARGO AGENT From: TIFFANY DEAN LPN ([facility] Nurse [facility]) To: CINTIA BULLOCK MD; Cc: CINTIA BULLOCK MD; Sent: 08/04/2016 12:34:40 AIR CARGO AGENT Show up: 08/04/2016 12:34:00 AIR CARGO AGENT Subject: RE: Results Notification Addendum by TIFFANY DEAN LPN on August 04, 2016 12:34:26 AIR CARGO AGENT From: TIFFANY DEAN LPN ([facility] Nurse Guajardo) To: CINTIA BULLOCK MD; Cc: CINTIA BULLOCK MD; Sent: 08/04/2016 12:34:26 AIR CARGO AGENT Show up: 08/04/2016 12:34:00 AIR CARGO AGENT Subject: RE: Results Notification Addendum by TIFFANY DEAN LPN on August 04, 2016 12:34:26 AIR CARGO AGENT From: TIFFANY DEAN LPN ([facility] Nurse Guajardo) To: CINTIA BULLOCK MD; Cc: CINTIA BULLOCK MD; Sent: 08/04/2016 12:34:26 AIR CARGO AGENT Show up: 08/04/2016 12:34:00 AIR CARGO AGENT Subject: RE: Results Notification Addendum by TIFFANY DEAN LPN on August 04, 2016 12:34:[address] Song, Spoke with pt.He is taking [...] RAMIREZ LPN on August 04, 2016 12:00:00 AIR CARGO AGENT Tried calling pt at all the numbers listed on overview and the one listed with this encounter. No answer. I was able to leave a voice message on one of them and asked to call back for message. From: CINTIA BULLOCK MD To: [facility]/Referrals; [facility] [place]; Sent: 08/01/2016 15:51:12 AIR CARGO AGENT Show up: 08/01/2016 15:49:00 AIR CARGO AGENT Subject: Results Notification LM for patient to [...] Lvl 9.9 mg/dL (8.6 - 10.0) Source: [facility] POWERCHART Document Id: [id number] Electronically signed by Conversion, [facility] Bilingual Executive Assistant [id number] at 01/31/2017 11:55 PM CDT documented in this encounter Plan of Treatment Not on filedocumented as of this encounter Procedures Procedure Name Priority Date/Time Associated Diagnosis Comme nts BASIC METABOLIC Routine 08/01/2016 2:02 PM Result s for this PANEL, S/P AIR CARGO AGENT procedure are i n the results section. documented in this encounter Results (ABNORMAL) BMP (Basic Metabolic Panel) (08/01/2016 2:02 PM AIR CARGO AGENT) Analysis Performed At Patho logist Time Signature [...] MMOLL HXeGFR (MDRD) 44 (L) >=60 POWERCHART [id number] eGFR 53 (L) >=60 POWERCHART Black/ [id number] Barbadian Glucose 124 70 - 139 POWERCHART MGDL Specimen (Source) Anatomical Collection Method Collection Time Re ceived Time Location / / Volume Laterality Blood 08/01/2016 2:02 PM AIR CARGO AGENT Cintia Copeland M.D. LAB BLOOD ADD-ON Performing Organization Address City/State/ZIP Code Phon e Number POWERCHART documented in this encounter Visit Diagnoses Not on filedocumented in this encounter Additional Health Concerns Assessment Noted Time PHQ-9 Depression Total Score: 18 02/14/2013 9:53 AM CD T documented as of this encounter
--- OUTSIDE RECORDS SUMMARY | 2022-08-12 09:24 | XMS_ITS | Encounter Summary ---
:1960 Author Organization [facility] Address [address] [place] [address] Care Team Providers Name Role Phone Cintia Cobb M.D. Primary Care Provider [phone] Encounter Details Date Type Department Care Team Description 07/07/2017 Orders Only Department of [facility] Tigist Cobb reoperative Exam; Medicine, [place] Cintia Piper M.D. 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 PCP - General 02/19/17 02/20/[address] [place] [phone] documented as of this encounter
--- OUTSIDE RECORDS SUMMARY | 2022-08-12 09:25 | XMS_ITS | Encounter Summary ---
:1960 Author Organization [facility] Address [address] [place] [address] Care Team Providers Name Role Phone Unavailable Primary Care Provider Unavailable Encounter Details Date Type Department Care Team Description 01/16/2015 Hospital Encounter HX [facility] Charleen Roth M.D. [address] [place] [phone] (Wo rk) Social History Tobacco Use Types [...] Roth M.D. - 01/16/2015 1:18 PM CDT [id number] A 54-year-old gentleman with a long history [...] that time. He was seen at the [facility] and he tells me that they said [...] ROTH MD On: 01/30/2015 09:48 AM Source: [facility] [email or web address] Document Id: [id number] documented in this encounter Miscellaneous Notes Miscellaneous - Angela Terry R.N. - 01/30/2015 4:42 PM CDT Provider Letter 30 Jan 2015 NOEMÍ LUNA [address] [place] [id number] Dear NOEMÍ LUNA, I am pleased to report that your results from the following diagnostic test(s) are normal. Please follow up with us as we discussed during your visit or sooner if you have any concerns. If you have questions or concerns, please do not hesitate to call our office at [phone]. Result Name Current Result [facility] (ng[facility]dL[facility] 444 01/16/2015 240-950 - Sincerely, TRINI TERRY Electronic Signature Electronically Signed By: TRINI TERRY RN On: 30 Jan 2015 This document has images extracted. Source: [facility] POWERCHART Document Id: [id number] Electronically signed by Dayami, [facility] Grey Roll Worker [id number] at 02/01/2017 7:34 PM CDT Telephone Encounter - Conversion, Historical Provider Ser - 01/30/2015 10:01 AM CDT Outside Referral [place] Entered by JESSIKA PAREKH on 30 Jan 2015 10:01:05 CDT Thank you for your referral.? This patient has not returned messages to call us so that we may obtain information for registrationand scheduling purposes. The referral has been closed. The following patient has a Consult to Outside Specialist [place]: order placed. Patient Name: NOEMÍ LUNA Diagnosis: Impotence of Organic Origin,of Organic Origin, Ordering Provider: RAYNA ROTH MD ; Original Order DT/TM: January 16, 2015 14:13:01 CDT ; Order: Consult to Outside Specialist [place] ; Order Details: Referral For: Adult Department: Urology Reason For Visit: men's health Why Needs cannot be met : NOT FOUND Why Needs cannot be met - FH : NOT FOUND Why Needs cannot be met [place] : Service not available at [facility] Facility : [facility] FH : NOT FOUND Appointment Type: Consult [...] be Sent: NOT FOUND Impotence Organic Source: [facility] POWERCHART Document Id: [id number] Miscellaneous - Raymond Graham, L.P.N. 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 HEAD START DIRECTOR - 01/16/2015 13:40 CDT Caffeine Use Grid Caffeine Use : Current Type : Coffee, Soft drinks Frequency : Weekly Amount : soda- weekly; coffee- 1x/week ISABELLA GRAHAMFREDO Oakes [facility] - 01/16/2015 13:40 CDT Recreational Drug Use Grid Drug Use : None ISABELLA GRAHAMFREDO Oakes [facility] - 01/16/2015 13:40 CDT ID Screen Drug Resistant Organism : No Travel Within Last 21 Days : No Contact with someone with Ebola : No GRAHAM, RAYMOND L [facility] - 01/16/2015 13:40 CDT Source: [email or web address] Document Id: [id number] CDT!10 documented in this encounter Plan of [...] Total and Free (01/16/2015 2:27 PM CDT) [facility] Method Time Signature % Free 7.5 (L) 9 - 30 POWERCHART Testosterone NGDL Comment: ADDITIONAL INFORMATIO N Testing performed by Catarina mcmahan Testosterone, Total 444 240 - 950 NGDL POWER CHART Comment: ADDITIONAL INFORMATIO N Testing performed by Liquid Chromatograp hy-Tandem Mass Spectrometry (LC-MS/MS). Test Performed by: [facility] [place] [address] Hammer Adjuster: Rene Gomez II, M.D., Ph.D. Specimen (Source) [...] of malignant disease. Test Performed by: [facility] - [address] [address] Hammer Adjuster: Rene Gomez II, M.D., Ph.D. Specimen (Source) [...]
--- OUTSIDE RECORDS SUMMARY | 2022-08-12 09:25 | XMS_ITS | Encounter Summary ---
:1960 Author Organization [facility] Address [address] [place] [address] Care Team Providers Name Role Phone Unavailable Primary Care Provider Unavailable Encounter Details Date Type Department Care Team Description 05/12/2015 Hospital Encounter [facility] Piero Swann M.D. [address] [place] [phone] (Wo rk) Social History Tobacco Use [...] and urlogic cancers sent for scanning. Source: [facility] POWERCHART Document Id: [id number] Electronically signed by Conversion, [facility] Cashier Or Checker Stock Clerk [id number] at 02/02/2017 7:04 PM CDT documented in this encounter Plan of Treatment Not on filedocumented as of this encounter Visit Diagnoses Not on filedocumented in this encounter Additional Health Concerns Assessment Noted Time PHQ-9 Depression Total Score: 18 02/14/2013 9:53 AM CD T documented as of this encounter
--- OUTSIDE RECORDS SUMMARY | 2022-08-12 09:25 | XMS_ITS | Encounter Summary ---
:1960 Author Organization [facility] Address [address] [place] [address] Care Team Providers Name Role Phone Unavailable Primary Care Provider Unavailable Encounter Details Date Type Department Care Team Description 02/22/2016 Hospital Encounter [facility] ED Alexandra Barker M.D. [address] [place] [address] 021 (Wo rk) Social History Tobacco Use [...] 02/22/2016 8:10 PM CDT ED Discharge Instructions [address] [address] Name: NOEMÍ LUNA Date of : 1960 12:00 AM Visit Date: 02/22/2016 6:18 PM [facility] Number: [id number] Address: [place] [address] [facility] [phone] Primary Care Provider: KEVIN KILGORE MD IMPORTANT: [facility] in [place] would like to thank you for allowing us to assist you with your healthcare needs. The following includes patient education materials and informationregarding your injury/illness. Diagnosis: Stomatitis NOS Follow-Up Instructions: With: Address: When: KEVIN KILGORE [address] [place] [phone] Business (1) Within As Needed Your Upcoming [...] 1/2 cup of warm water ?? An vvrd-csh-ssxpoyy anesthetic gargle Use Medication for More Relief Tmtw-upp-efbbmwi medication can reduce sore throat symptoms. Ask [...] glands in the neck or jaw ?? [id number] [facility], [address] [place] [address], [place] [address]. All rights reserved. This information is not [...] if you dont have one. Go to [email or web address] and click on Create Your Account. Then, follow the directions to complete the online form. Youll be asked for your [facility] number which you can find at the [...] ride home with a responsible green party. ICARLYLE ED J , or responsible green party have received this information and my questions have been answered. I have discussed any challenges I see with this plan with the nurse or physician. Patient Signature or Responsible Constitution Party/Relationship Date Time Provider Signature Date Time This document has images extracted. Please consider using [employer] for all your patient education needs. Source: [facility] POWERCHART Document Id: [id number] Nicky Madrigal, R.NPili - 02/22/2016 8:10 PM CDT ED Depart Summary [facility] Clinical Discharge Summary PERSON INFORMATION Name NOEMÍ LUNA Age 55 Years 1960 12:00 AM Sex Male Language Tajik PCP KEVIN KILGORE MD Marital Status Visit Id Visit Reason Throat pain - Adult; Throat pain - Adult; Sore Throat Specialty Enc Type Emergency Med Service Emergency Medicine Referred by Track Group [facility] ED Discharge 02/22/2016 8:05 PM Tracking Id [id number] Checkout 02/22/2016 8:05 PM Checkin 02/22/2016 6:18 PM Acuity 4 -Less Urgent Dispo Type * Discharged to Home or Self Care Arrival 02/22/2016 6:18 PM Reg Status Complete LOS 000 01:47 Address: [address] [phone] Comment: PROVIDER INFORMATION Provider Role Provider Contact Time CIERRA BARKER MD ED Provider 02/22/16 18:27 NICKY MADRIGAL CEMENT CUTTER Nurse 02/22/16 18:37 DIAGNOSIS Stomatitis NOS Comment: PATIENT EDUCATION INFORMATION Instructions: Self-Care for Sore Throats Follow up: With: Address: When: KEVIN KILGORE [address] [place] [address] [phone] Business (0) Within As Needed Source: [facility] POWERCHART Document Id: [id number] documented in this encounter Medications at Time [...] MADRIGAL RN - 02/22/2016 20:08 CDT Source: [employer] Document Id: [id number] CDT!3 Nicky Madrigal RAugustine - 02/22/2016 8:08 PM CDT ED Pain Assessment ED Pain Assessment Entered On: 02/22/2016 20:08 CDT Performed On: 02/22/2016 20:08 CDT by NICKY MADRIGAL RN Pain Assessment Pain Symptoms : No NICKY MADRIGAL RN - 02/22/2016 20:08 CDT Source: [employer] Document Id: [id number] CDT!3 Nicky Madrigal R.N. - 02/22/2016 7:40 [...] MADRIGAL RN - 02/22/2016 20:09 CDT Source: [employer] Document Id: [id number] CDT!6 Nicky Madrigal RAugustine - 02/22/2016 7:22 [...] System: PowerChart ; Last Updated: 07/24/2011 10:45 CONSULTING TECHNICAL MANAGER ; Life Cycle Date: 12/05/2010 ; [...] System: PowerChart ; Last Updated: 07/29/2014 7:02 CONSULTING TECHNICAL MANAGER ; Life Cycle Status: Active ; [...] System: PowerChart ; Last Updated: 09/30/2012 15:06 CONSULTING TECHNICAL MANAGER ; Life Cycle Date: 09/30/2012 ; Life Cycle Status: Active ; Responsible Provider: STEVE ANDREA APRN, CNP; Vocabulary: ICD-9-CM ; Comments: 09/30/2012 15:06 - STEVE ANDREA APRN, CNP left Genital warts (ICD-9-CM :078.19 ) Name of Problem: Genital warts ; Recorder: MARILUZ FRAGA MD; Confirmation: Confirmed ; Classification: UPDATE NEEDED ; Code: 078.19 ; Contributor System: PowerChart; Last Updated: 11/05/2015 4:20 CONSULTING TECHNICAL MANAGER ; Life Cycle Date: 02/11/2013 ; Life [...] Code: 695.89 ; Last Updated: 07/14/2012 14:36 CONSULTING TECHNICAL MANAGER ; Life Cycle Status: Active ; [...] System: PowerChart ; Last Updated: 09/05/2010 9:56 CONSULTING TECHNICAL MANAGER ; Life Cycle Date: 09/05/2010 ; Life Cycle Status: Active ; Responsible Provider: STEVE ANDREA APRN TOOTH POLISHER; Vocabulary: ICD-9-CM ; Comments: 09/30/2013 11:ANOOP ISAAC R RICE CLEANING MACHINE TENDER onset unknown Optic disc cupping (ICD-9-CM :377.14 [...] Medical ; Code: 110.3 ; Contributor System: [employer] ; Last Updated: 06/01/2013 9:06 CDT ; Life Cycle Date: 06/01/2013 ; Life Cycle Status: Active ; Responsible Provider: MARILUZ FRAGA MD; Vocabulary: ICD-9-CM ; Comments: 09/30/2013 11:ANOOP ISAAC RLPN onset unknown Tinea pedis* (ICD-9-CM :110.4 ) Name of Problem: Tinea pedis* ; Recorder: MARILUZ FRAGA MD; Confirmation: Confirmed ; Classification: Medical ; Code: 110.4 ; Contributor System: [employer] ; Last Updated: 02/02/2014 8:24 CDT ; Life Cycle Date: 06/01/2013 ; Life Cycle Status: Active ; Responsible Provider: MARILUZ FRAGA MD; Vocabulary: ICD-9-CM ; Comments: 09/30/2013 11:ANOOP ISAAC R RICE CLEANING MACHINE TENDER onset unknown Ulcer of skin NOS (ICD-9-CM :707.9 ) Name of Problem: Ulcer of skin NOS ; Recorder: HALEIGH SCHULTZ APRN TOOTH POLISHER; Confirmation: Confirmed ; Classification: UPDATE NEEDED ; Code: 707.9 ; Contributor System:PowerChart ; Last Updated: 09/18/2010 8:25 CONSULTING TECHNICAL MANAGER ; Life Cycle Date: 09/18/2010 ; Life Cycle Status: Active ; Responsible Provider: HALEIGH SCHULTZ APRN, CNP; Vocabulary: ICD-9-CM ; Comments: 09/30/2013 11:47 - ANOOP QUEVEDO LPN onset unknown Unspecified Adjustment Reaction (ICD-9-CM :309.9 ) Name of Problem: Unspecified Adjustment Reaction ; Onset Date: 05/05/2013 ; Confirmation: Confirmed ; Classification: Medical ; Code: 309.9 ; Contributor System: [facility]PR_UPLOAD ; Last Updated: 12/03/2013 18:36 CDT ; Life Cycle Status: Active ; Vocabulary: ICD-9-CM ; Comments: - Unspecified adjustment reaction Urge Incontinence (ICD-9-CM :788.31 ) Name of Problem: Urge Incontinence ; Recorder: STEVE ANDREA CNP; Confirmation: Confirmed ; Classification: Medical ; Code: 788.31 ; Contributor System: [employer] ; Last Updated: 02/20/2010 8:39 CDT ; [...] PNED ; Probability: 0 ; Diagnosis Code: [id number] Throat pain - Adult Date: 02/22/2016 ; Diagnosis Type: Reason For Visit ; Confirmation: Complaint of; Clinical Dx: Throat pain - Adult ; Classification: Medical ; Clinical Service: Non-Specified ; Code: PNED ; Probability: 0 ; Diagnosis Code: [id number] Triage Chief Complaint Description : See Triage Note Mode of Arrival ED : Private vehicle Track : Medical Languages : Tajik Treatments Prior to Arrival : None Is [...] MADRIGAL RN - 02/22/2016 19:22 CDT Source: [facility] eTipping Document Id: [id number] CDT!45 Cierra Barker M.D. - 02/22/2016 7:06 [...] on 09/29/2012 at 52 years. Comments: 09/30/2012 CONSULTING TECHNICAL MANAGER 15:06 CONSULTING TECHNICAL MANAGER - STEVE ANDREA APRN TOOTH POLISHER left Genital warts (078.19) Comments: 09/30/2013 CONSULTING TECHNICAL MANAGER 11:47 CONSULTING TECHNICAL MANAGER ANOOP GONZALEZ LPN onset unknown Tinea pedis* (110.4) Comments: 09/30/2013 CONSULTING TECHNICAL MANAGER 11:47 CONSULTING TECHNICAL MANAGER ANOOP GONZALEZ RICE CLEANING MACHINE TENDER onset unknown Tinea cruris. (110.3) Comments: 09/30/2013 CONSULTING TECHNICAL MANAGER 11:47 CONSULTING TECHNICAL MANAGER ANOOP GONZALEZ RICE CLEANING MACHINE TENDER onset unknown. Surgical history: Gastric bypass ([id number]) on 11/19/2014 at 54 Years. Cystoscopy ([id number]) on 12/26/2009 at 49 Years. Comments: 02/20/2010 08:36 - STEVE ANDREA TOOTH POLISHER [facility] / normal PSA, TOTAL SCREENING (G0103) on 12/26/2009 at 49 Years. Comments: 02/20/2010 08:38 - STEVE ANDREA TOOTH POLISHER Done at [facility] / Result: 1.55 Discectomy ([id number]) on 02/19/1989 at 28 Years. Comments: 12/28/2009 [...] BARKER MD On: 02/22/2016 07:46 PM Source: [facility] POWERCHART Document Id: {[id number]} Nicky Madrigal, R.N. - 02/22/2016 6:28 PM [...] Medical ; Code: 600.00 ; Contributor System: [employer] ; Last Updated: 02/15/2010 10:00 CDT ; [...] System: PowerChart ; Last Updated: 07/24/2011 10:45 CONSULTING TECHNICAL MANAGER ; Life Cycle Date: 12/05/2010 ; [...] System: PowerChart ; Last Updated: 07/29/2014 7:02 CONSULTING TECHNICAL MANAGER ; Life Cycle Status: Active ; [...] System: PowerChart ; Last Updated: 09/30/2012 15:06 CONSULTING TECHNICAL MANAGER ; Life Cycle Date: 09/30/2012 ; Life Cycle Status: Active ; Responsible Provider: STEVE ANDREA APRN, CNP; Vocabulary: ICD-9-CM ; Comments: 09/30/2012 15:06 - STEVE ANDREA APRN, CNP left Genital warts (ICD-9-CM :078.19 ) Name of Problem: Genital warts ; Recorder: MARILUZ FRAGA MD; Confirmation: Confirmed ; Classification: UPDATE NEEDED ; Code: 078.19 ; Contributor System: [employer]; Last Updated: 11/05/2015 4:20 CONSULTING TECHNICAL MANAGER ; Life Cycle Date: 02/11/2013 ; Life [...] Code: 695.89 ; Last Updated: 07/14/2012 14:36 CONSULTING TECHNICAL MANAGER ; Life Cycle Status: Active ; [...] Obesity NOS ; Recorder: STEVE ANDREA APRN TOOTH POLISHER; Confirmation: Confirmed ; Classification: Medical ; Code: 278.00 ; Contributor System: PowerChart ; Last Updated: 09/05/2010 9:56 CONSULTING TECHNICAL MANAGER ; Life Cycle Date: 09/05/2010 ; Life Cycle Status: Active ; Responsible Provider: STEVE ANDREA APRN TOOTH POLISHER; Vocabulary: ICD-9-CM ; Comments: 09/30/2013 11:47 ANOOP GONZALEZ RICE CLEANING MACHINE TENDER onset unknown Optic disc cupping (ICD-9-CM :377.14 [...] UPDATE NEEDED ; Code: 707.9 ; Contributor System:[employer] ; Last Updated: 09/18/2010 8:25 CONSULTING TECHNICAL MANAGER ; Life Cycle Date: 09/18/2010 ; Life Cycle Status: Active ; Responsible Provider: HALEIGH SCHULTZ APRN, CNP; Vocabulary: ICD-9-CM ; Comments: 09/30/2013 11:47 - ANOOP QUEVEDO LPN onset unknown Unspecified Adjustment Reaction (ICD-9-CM :309.9 ) Name of Problem: Unspecified Adjustment Reaction ; Onset Date: 05/05/2013 ; Confirmation: Confirmed ; Classification: Medical ; Code: 309.9 ; Contributor System: [facility]UPLOAD ; Last Updated: 12/03/2013 18:36 CDT ; Life Cycle Status: Active ; Vocabulary: ICD-9-CM ; Comments: - Unspecified adjustment reaction Urge Incontinence (ICD-9-CM :788.31 ) Name of Problem: Urge Incontinence ; Recorder: STEVE ANDREA CNP; Confirmation: Confirmed ; Classification: Medical ; Code: 788.31 ; Contributor System: [employer] ; Last Updated: 02/20/2010 8:39 CDT ; [...] PNED ; Probability: 0 ; Diagnosis Code: [id number] Triage Chief Complaint Description : Sore Throat for 1 week. Unable to eat or drink for approx. can take sips of liquids and clear liq. Slight discomfort/dull pain in chest. patient believes it could be from not eating anything. Information Given By : Patient Present in Room During Exam/Procedure : Alone Mode of Arrival ED : Private vehicle Track : Medical Languages : Tajik Treatments Prior to Arrival : None Is [...] : 4 -Less Urgent Tracking Group : [facility] ED NICKY MADRIGAL Terri RN - 02/22/2016 [...] MADRIGAL RN - 02/22/2016 18:28 CDT Source: [facility] eTipping Document Id: [id number] CDT!46 documented in this encounter Miscellaneous Notes [...] before making changes. Pt hung up. Source: [facility] eTipping Document Id: [id number] Electronically signed by Conversion, [facility] Corporate Administrator [id number] at 01/31/2017 6:19 PM CDT Miscellaneous - Shirlene Dominguez R.N. - 02/26/2016 1:30 PM CDT Tums From: SHIRLENE DOMINGUEZ RN Sent: 02/26/2016 13:30:48 CDT Subject: Tums Pt wants only For[place] flavored Tums, would have to be extra strength. Discussed with provider, pt has instructions on taking and can not change script amount without visit to discuss. Source: [facility] eTipping Document Id: [id number] Electronically signed by Conversion, [facility] Corporate Administrator [id number] at 01/31/2017 6:19 PM CDT Miscellaneous - Nicky Madrigal R.N. - 02/22/2016 8:08 PM CDT Valuables/Belongings Valuables/Belongings Entered On: 02/22/2016 20:08 CDT Performed On: 02/22/2016 20:08 CDT by NICKY MADRIGAL RN Valuables/Belongings Home Medication Disposition : None brought in with patient NICKY MADRIGAL RN - 02/22/2016 20:08 CDT Source: [facility] eTipping Document Id: [id number] CDT!3 Miscellaneous - Conversion, Historical Provider Ser - 02/22/2016 8:05 PM CDT Coding Summary-Paper Based CODING DATE: 02/29/2016 FINAL [facility] STATUS: * Discharged to Home [...] VERGARA Date Saved: 02/29/2016 02:01 pm [facility] Document Id: [id number] Miscellaneous - Nicky Madrigal, R.N. - 02/22/2016 [...] MADRIGAL RN Nursing Notes ED Primary Assessment,02/22/16 19:22,NICYK MADRIGAL CEMENT CUTTER Pain Assessment,02/22/16 20:08,NICKY MADRIGAL RN [place] Nursing Assessment : Triage and 1-2 nursing assessments [place] Disposition : Discharge [place] Total Points with Diagnosis Control : 5 [place] Visit Level : 45235 Level 3 Treatments Prior to Arrival : None NICKY MADRIGAL RN - 02/22/2016 20:08 CDT Source: [employer] Document Id: [id number] CDT!18 documented in this encounter Plan of [...] Strep A Screen (02/22/2016 6:50 PM CDT) [facility] Method Time Signature HXRapid Strep POWERCHART Confirmation HXPre Pending POWERCHART HXFinal NEG POWERCHART HXFinal [facility] [address] [facility] [id number] Specimen Anatomical Collection Method Collection Time Receive d Time (Source) Location / / Volume Laterality Throat 02/22/2016 6:50 PM 6 6:50 CDT PM CDT Cierra Barker M.D. LAB MICROBIOLOGY - GENERAL O SARAH Performing Organization Address City/State/ZIP Code Phon e Number POWERCHART Rapid Strep A Screen (02/22/2016 6:50 PM CDT) [facility] Method Time Signature HXStrep A POWERCHART [...]
--- OUTSIDE RECORDS SUMMARY | 2022-08-12 09:25 | XMS_ITS | Encounter Summary ---
:1960 Author Organization [facility] Address [address] [place] [address] Care Team Providers Name Role Phone Unavailable Primary Care Provider Unavailable Encounter Details Date Type Department Care Team Description 08/24/2015 Hospital Encounter HX [facility] ED Alon Benavides M.D. [address] [place], [place] [address] (Wo rk) Social History Tobacco Use Types Packs/Day Years Used Date Smoking Tobacco: Never Assessed Sex Assigned at Date Recorded Not on file documented as of this encounter Last Filed Vital Signs Vital Sign Reading Time Taken Comments Blood Pressure 128/80 08/24/2015 8:11 PM KILN STACKER Pulse 53 08/24/2015 8:11 PM KILN STACKER Temperature - - Respiratory Rate 16 08/24/2015 8:11 PM KILN STACKER Oxygen Saturation - - Inhaled Oxygen Concentration - - Weight 95 kg (209 lb 7 oz) 08/24/2015 6:36 PM KILN STACKER Height 180 cm (5' 10.87) 08/24/2015 8:11 PM KILN STACKER Body Mass Index 29.32 08/24/2015 6:36 PM KILN STACKER documented in this encounter Discharge Summaries Nik Cisneros R.N. - 08/24/2015 8:32 PM CST ED Discharge Instructions [address] [address] Name: JEREMY NOEMÍ Jim Date of : 1960 12:00 AM Visit Date: 08/24/2015 6:28 PM [facility] Number: [id number] Address: [address] [facility] [phone] Primary Care Provider: KEVIN KILGORE MD IMPORTANT: [facility] in [place] would like to thank you for allowing us to assist you with your healthcare needs. The following includes patient education materials and informationregarding your injury/illness. Diagnosis: Viral Syndrome Follow-Up Instructions: With: Address: When: KEVIN KILGORE [address] [place] [phone] [facility] (1) Within As Needed Comments: As [...] and be dangerous to your health. ?? Sape-zrz-iyipqev remedies won't shorten the length of the [...] better with fever medication ?? Convulsion ?? [id number] [facility], [address] [place] [address]. All rights reserved. This information is not [...] if you dont have one. Go to [email or web address] and click on Create Your Account. Then, follow the directions to complete the online form. Youll be asked for your [facility] number which you can find at the [...] a ride home with a responsible republican. JEREMY Contreras ED J , or responsible republican [...] a ride home with a responsible republican. JEREMY Contreras ED J , or responsible republican have received this information and my questions have been answered. I have discussed any challenges I see with this plan with the nurse or physician. Patient Signature or Responsible Alliance Party/Relationship Date Time Provider Signature Date Time Source: [facility] POWERCHART Document Id: [id number] STACKER Nik Cisneros R.N. - 08/24/2015 8:32 PM CST ED Depart Summary [facility] Emergency Department Clinical Discharge Summary PERSON INFORMATION Name NOEMÍ LUNA Age 55 Years 1960 12:00 AM Sex Male Language [place] Citizen PCP KEVIN KILGORE MD Marital Status N [id number] Visit Id Visit Reason Body aches; Difficulty breathing/shakes/head pain Specialty Enc Type Emergency Med Service Emergency Medicine Referred by Track Group [facility] ED Discharge 08/24/2015 8:32 PM Tracking Id [id number] Checkout 08/24/2015 8:32 PM Checkin 08/24/2015 6:28 PM Acuity 5 -Non Urgent Dispo Type * Discharged to Home or Self Care Arrival 08/24/2015 6:28 PM Reg Status Complete LOS 000 02:04 Address: [address] [phone] Comment: PROVIDER INFORMATION Provider Role Provider Contact Time ALON BENAVIDES MD ED Provider 08/24/15 18:53 BOBBY MUNOZ RN SURGICAL PCU Nurse 08/24/15 18:53 NIK CISNEROS RN SURGICAL PCU Nurse 08/24/15 20:32 DIAGNOSIS Viral Syndrome Comment: PATIENT EDUCATION INFORMATION Instructions: VIRAL SYNDROME (Adult) Follow up: With: Address: When: KEVIN FERRER-[address] [address] [facility] (1) Within As Needed Comments: As needed. If your lightheadedness continues or you don't feel better by Thursday then call your PCP. Focus on hydration. Source: [facility] Document Id: [id number] STACKER documented in this encounter Medications at Time of Discharge Medication Sig Dispensed Refills Start Date End Date ferrous sulfate 325 mg Take 1 tablet by 0 015 11/24/2017 (65 mg iron) tablet mouth 2 (two) times a day. documented as of this encounter ED Notes Nik Cisneros R.N. - 08/24/2015 8:20 PM CST ED Pain Assessment ED Pain Assessment Entered On: 08/24/2015 20:20 KILN STACKER Performed On: 08/24/2015 20:20 KILN STACKER by NIK CISNEROS RN Pain Assessment Pain Symptoms : Yes NIK CISNEROS RN - 08/24/2015 20:20 KILN STACKER Source: imedo Document Id: [id number] KILN STACKER!3 STACKER Nik Cisneros R.N. - 08/24/2015 8:19 PM CST ED Disposition Summary ED Disposition Summary Entered On: 08/24/2015 20:20 KILN STACKER Performed On: 08/24/2015 20:19 KILN STACKER by NIK CISNEROS RN ED Disposition Summary Accompanied By : Alone Mode of Discharge : Ambulatory Transportation : Private vehicle Discharge From ED With : Home Med List Printed Discharge Instructions Given to Patient : Yes Patient Status at Discharge from ED : Unchanged NIK CISNEROS RN - 08/24/2015 20:19 KILN STACKER [facility] Document Id: [id number] KILN STACKER!8 STACKER Alon Benavides M.D. - 08/24/2015 7:24 PM CST General Medical *ED Document Contains Addenda Addendum by ALON BENAVIDES MD on 24 August 2015 20:15 KILN STACKER The patient appears well, does not appear [...] Note : Chief Complaint Description 08/24/2015 18:45 KILN STACKER Chief Complaint Description see triage note 08/24/2015 18:36 KILN STACKER Chief Complaint Description Body aches, cough, headache, [...] on 09/29/2012 at 52 years. Comments: 09/30/2012 KILN STACKER 15:06 STEVE COUCH CNP left Genital warts (078.19) Comments: 09/30/2013 KILN STACKER 11:47 KILN STACKER - ANOOP QUEVEDO R ZIGZAGGER onset unknown Tinea pedis* (110.4) Comments: 09/30/2013 KILN STACKER 11:47 KILN STACKER ANOOP GONZALEZ R ZIGZAGGER onset unknown Tinea cruris. (110.3) Comments: 09/30/2013 KILN STACKER 11:47 KILN STACKER ANOOP GONZALEZ R ZIGZAGGER onset unknown, DM 2, HTN. Surgical history: Gastric bypass ([id number]) on 11/19/2014 at 54 Years. Cystoscopy ([id number]) on 12/26/2009 at 49 Years. Comments: 02/20/2010 08:36 - STEVE ANDREA CNP [employer] [facility] / normal PSA, TOTAL SCREENING (G0103) on 12/26/2009 at 49 Years. Comments: 02/20/2010 08:38 - STEVE ANDREA CNP Done at [employer] / Result: 1.55 Discectomy ([id number]) on 02/19/1989 at 28 Years. Comments: 12/28/2009 09:38 - STEVE ANDREA CNP lumbar L4-L5. Social history: Reviewed as documented in chart, Alcohol use: Denies, Tobacco use: Denies, Drug use:Denies. Physical Examination Vital Signs: Vital Signs 08/24/2015 18:48 KILN STACKER Systolic Blood Pressure 131 mmHg Diastolic Blood Pressure 79 mmHg 08/24/2015 18:36 KILN STACKER Temperature Core 37.2 DegC Peripheral Pulse Rate 60 /min Respiratory Rate 18 /min SpO2 98 % Systolic Blood Pressure 141 mmHg HI Diastolic Blood Pressure 80 mmHg Mean Arterial Pressure 100 mmHg , Measurements 08/24/2015 18:48 KILN STACKER Height 180 cm 08/24/2015 18:36 KILN STACKER Height 180 cm Height Source Stated Dosing Weight 95.00 kg Actual Weight 95 kg Weight Source Standing scale Body Mass Index 29.32 kg/m2 , SpO2 08/24/2015 18:36 KILN STACKER SpO2 98 % . General: Alert and [...] BENAVIDES MD On: 08/24/2015 07:57 PM Source: [facility] POWERCHART Document Id: [id number]} STACKER Bobby Munoz RPiliN. - 08/24/2015 6:45 PM CST ED Primary Assessment Document Has Been Updated ED Primary Assessment Entered On: 08/24/2015 19:04 KILN STACKER Performed On: 08/24/2015 18:45 KILN STACKER by BOBBY MUNOZ RN Reason For Visit (As Of: 08/24/2015 19:04:13 KILN STACKER) Problems(Active) BPH without urinary obstruction (ICD-9-CM :600.00 ) Name of Problem: BPH without urinary obstruction; Recorder: STEVE ANDREA CNP; Confirmation: Confirmed ; Classification: Medical ; Code: 600.00 ; Contributor System: Allworx ; Last Updated: 02/15/2010 10:00 CDT ; [...] System: PowerChart ; Last Updated: 07/24/2011 10:45 KILN STACKER ; Life Cycle Date: 12/05/2010 ; Life Cycle Status: Active ; Responsible Provider: STEVE ANDREA CNP; Vocabulary: ICD-9-CM Eczema (ICD-9-CM :692.9 ) Name of Problem: Eczema ; Recorder: STEVE ANDREA CNP; Confirmation: Confirmed ; Classification: Medical ; Code: 692.9 ; Contributor System: [email or web address] ; Last Updated: 01/25/2014 16:29 CDT ; [...] System: PowerChart ; Last Updated: 07/29/2014 7:02 KILN STACKER ; Life Cycle Status: Active ; Responsible [...] System: PowerChart ; Last Updated: 09/30/2012 15:06 KILN STACKER ; Life Cycle Date: 09/30/2012 ; Life [...] Comments: 09/30/2013 11:47 - QUEVEDO, ANOOP R ZIGZAGGER onset unknown Hyperlipidemia (ICD-9-CM :272.4 ) Name of Problem: Hyperlipidemia ; Onset Date: 12/28/2009 ; Recorder: TSEVE ANDREA CNP; Confirmation: Confirmed ; Classification: Medical [...] Code: 695.89 ; Last Updated: 07/14/2012 14:36 KILN STACKER ; Life Cycle Status: Active ; Responsible [...] System: PowerChart ; Last Updated: 09/05/2010 9:56 KILN STACKER ; Life Cycle Date: 09/05/2010 ; Life Cycle Status: Active ; Responsible Provider: STEVE ANDREA CNP; Vocabulary: ICD-9-CM ; Comments: 09/30/2013 11:ANOOP ISAAC R ZIGZAGGER onset unknown Optic disc cupping (ICD-9-CM :377.14 [...] Medical ; Code: 110.4 ; Contributor System: [email or web address] ; Last Updated: 02/02/2014 8:24 CDT ; Life Cycle Date: 06/01/2013 ; Life Cycle Status: Active ; Responsible Provider: MARILUZ FRAGA MD; Vocabulary: ICD-9-CM ; Comments: 09/30/2013 11:ANOOP ISAAC R ZIGZAGGER onset unknown Ulcer of skin NOS (ICD-9-CM :707.9 ) Name of Problem: Ulcer of skin NOS ; Recorder: HALEIGH SCHULTZ CNP; Confirmation: Confirmed ; Classification: UPDATE NEEDED ; Code: 707.9 ; Contributor System: Allworx ; Last Updated: 09/18/2010 8:25 KILN STACKER ; Life Cycle Date: 09/18/2010 ; Life Cycle Status: Active ; Responsible Provider: HALEIGH SCHULTZ CNP; Vocabulary: ICD-9-CM ; Comments: 09/30/2013 11:47 - ANOOP QUEVEDO LPN onset unknown Unspecified Adjustment Reaction (ICD-9-CM :309.9 ) Name of Problem: Unspecified Adjustment Reaction ; Onset Date: 05/05/2013 ; Confirmation: Confirmed ; Classification: Medical ; Code: 309.9 ; Contributor System: [facility]_HX_PR_UPLOAD ; Last Updated: 12/03/2013 18:36 CDT ; Life Cycle Status: Active ; Vocabulary: ICD-9-CM ; Comments: - Unspecified adjustment reaction Urge Incontinence (ICD-9-CM :788.31 ) Name of Problem: Urge Incontinence ; Recorder: STEVE ANDREA; Confirmation: Confirmed ; Classification: Medical ; Code: 788.31 ; Contributor System: Allworx ; Last Updated: 02/20/2010 8:39 CDT ; [...] PNED ; Probability: 0 ; Diagnosis Code: [id number] Triage Chief Complaint Description : see triage note Mode of Arrival ED : Private vehicle Track : Medical Languages : [place] Citizen Treatments Prior to Arrival : None Is Patient Female and 13-50 no hysterectomy : No BOBBY MUNOZ RN - 08/24/2015 18:55 KILN STACKER Pain Assessment Pain Symptoms : Yes BOBBY MUNOZ RN - 08/24/2015 18:55 KILN STACKER Respiratory Airway : Patent Respirations : Unlabored Respiratory Pattern : Regular Oxygen Therapy : Room air Respiratory Detailed Assessment : Yes BOBBY MUNOZ RN - 08/24/2015 18:55 KILN STACKER Resp Detailed Respiratory Patient Stated Symptoms : None Distress : None Cough : Productive Sputum Amount : Scant Respiratory Note : body aches, sinus congestion, rhinorrhea, headache. BOBBY MUNOZ RN - 08/24/2015 18:55 KILN STACKER Cardiovascular Heart Rhythm : Regular Skin Color : Normal for ethnicity Skin Description : Dry Skin Temperature : Cool BOBBY MUNOZ RN - 08/24/2015 18:55 KILN STACKER Neurological Last Well Time Known : Not applicable Level of Consciousness : Alert Orientation : Appropriate for age Characteristics of Speech : Appropriate for age Neuro Patient Stated Symptoms : None Gait : Steady Swallowing Difficulty/Aspiration Risk : Cough BOBBY MUNOZ RN - 08/24/2015 18:55 KILN STACKER ED Psychosocial Affect/Behavior : Calm, Appropriate Domestic Abuse Concerns : None Behavioral Health Screen/Safety Assmt : No BOBBY MUNOZ RN - 08/24/2015 18:55 KILN STACKER Gastrointestinal Nutrition ED : Adequate BOBBY MUNOZ RN - 08/24/2015 18:55 KILN STACKER Musculoskeletal Fall Prevention Education Provided : Yes BOBBY MUNOZ RN - 08/24/2015 18:55 KILN STACKER Social Habits Exposure to Tobacco Smoke : Care provider denies smoking in home, Other: never Smoking Status : Never smoker Tobacco 2A : Unknown BOBBY MUNOZ RN - 08/24/2015 18:55 KILN STACKER Alcohol Use Grid Alcohol Use : No BOBBY MUNOZ RN - 08/24/2015 18:55 KILN STACKER Recreational Drug Use Grid Drug Use : None BOBBY MUNOZ RN - 08/24/2015 18:55 KILN STACKER Source: [facility] POWERCHART Document Id: [id number] KILN STACKER!53 STACKER Bobby Munoz RPiliN. - 08/24/2015 6:36 PM CST ED Triage Assessment Document Has Been Updated ED Triage Assessment Entered On: 08/24/2015 18:43 KILN STACKER Performed On: 08/24/2015 18:36 KILN STACKER by BOBBY MUNOZ RN Reason For Visit (As Of: 08/24/2015 18:43:01 KILN STACKER) Problems(Active) BPH without urinary obstruction (ICD-9-CM :600.00 ) Name of Problem: BPH without urinary obstruction; Recorder: STEVE ANDREA CNP; Confirmation: Confirmed ; Classification: Medical ; Code: 600.00 ; Contributor System: [email or web address] ; Last Updated: 02/15/2010 10:00 CDT ; [...] Medical ; Code: 250.02 ; Contributor System: [email or web address] ; Last Updated: 07/24/2011 10:45 KILN STACKER ; Life Cycle Date: 12/05/2010 ; Life Cycle Status: Active ; Responsible Provider: STEVE ANDREA CNP; Vocabulary: ICD-9-CM Eczema (ICD-9-CM :692.9 ) Name of Problem: Eczema ; Recorder: STEVE ANDREA CNP; Confirmation: Confirmed ; Classification: Medical ; Code: 692.9 ; Contributor System: [email or web address] ; Last Updated: 01/25/2014 16:29 CDT ; [...] System: PowerChart ; Last Updated: 07/29/2014 7:02 KILN STACKER ; Life Cycle Status: Active ; Responsible [...] System: PowerChart ; Last Updated: 09/30/2012 15:06 KILN STACKER ; Life Cycle Date: 09/30/2012 ; Life [...] Code: 695.89 ; Last Updated: 07/14/2012 14:36 KILN STACKER ; Life Cycle Status: Active ; Responsible [...] of Problem: Obesity NOS ; Recorder: STEVE ANDERA CNP; Confirmation: Confirmed ; Classification: Medical ; Code: 278.00 ; Contributor System: PowerChart ; Last Updated: 09/05/2010 9:56 KILN STACKER ; Life Cycle Date: 09/05/2010 ; Life [...] Vocabulary: ICD-9-CM ; Comments: 09/30/2013 11:ANOOP ISAAC ZIGZAGGER onset unknown Ulcer of skin NOS (ICD-9-CM :707.9 ) Name of Problem: Ulcer of skin NOS ; Recorder: HALEIGH SCHULTZ CNP; Confirmation: Confirmed ; Classification: UPDATE NEEDED ; Code: 707.9 ; Contributor System: PowerChart ; Last Updated: 09/18/2010 8:25 KILN STACKER ; Life Cycle Date: 09/18/2010 ; Life Cycle Status: Active ; Responsible Provider: HALEIGH SCHULTZ CNP; Vocabulary: ICD-9-CM ; Comments: 09/30/2013 11:ANOOP ISAAC ZIGZAGGER onset unknown Unspecified Adjustment Reaction (ICD-9-CM :309.9 ) Name of Problem: Unspecified Adjustment Reaction ; Onset Date: 05/05/2013 ; Confirmation: Confirmed ; Classification: Medical ; Code: 309.9 ; Contributor System: [facility]_HX_PR_UPLOAD ; Last Updated: 12/03/2013 18:36 CDT ; Life Cycle Status: Active ; Vocabulary: ICD-9-CM ; Comments: - Unspecified adjustment reaction Urge Incontinence (ICD-9-CM :788.31 ) Name of Problem: Urge Incontinence ; Recorder: STEVE ANDREA; Confirmation: Confirmed ; Classification: Medical ; Code: 788.31 ; Contributor System: Allworx ; Last Updated: 02/20/2010 8:39 CDT ; [...] PNED ; Probability: 0 ; Diagnosis Code: [id number] Triage Chief Complaint Description : Body aches, cough, headache, shakes, since 08/18/15. Information Given By : Patient Accompanied By : Alone Mode of Arrival ED : Private vehicle Track : Medical Languages : [place] Citizen Patient Informed of Triage Location : Emergency department Vital Signs Assessed : Yes GCS Assessed : Yes Treatments Prior to Arrival : None Is Patient Female and 13-50 no hysterectomy : No BOBBY MUNOZ RN - 08/24/2015 18:36 KILN STACKER Vital Signs Temperature Core : 37.2 DegC(Converted [...] kg/m2 BOBBY MUNOZ RN - 08/24/2015 18:36 KILN STACKER Lois Coma Eye Opening Response [place] : Spontaneously Best Verbal Response [place] : Oriented Best Motor Response [place] : Obeys simple commands Lois Coma Score : 15 SERA MUNOZY Soumya RN - 08/24/2015 18:36 KILN STACKER Pain Assessment Pain Symptoms : Yes BOBBY MUNOZ RN - 08/24/2015 18:36 KILN STACKER Pain Scale Pain Scale Non-Verbal PainAD : Open SERA MUNOZY Soumya RN - 08/24/2015 18:36 KILN STACKER PAINAD Breathing : Normal breathing Negative vocalization : None Facial expression : Smiling or inexpressive Body language : Relaxed Consolability : No need to console PAINAD Score : 0 BOBBY MUNOZ RN - 08/24/2015 18:36 KILN STACKER Comfort Measures Comfort Measures Grid Positioning : Yes BOBBY UMNOZ RN - 08/24/2015 18:36 KILN STACKER ED Physician Notification Time ED Physician Notification Time : 08/24/2015 18:42 KILN STACKER BOBBY MUNOZ RN - 08/24/2015 18:36 KILN STACKER ERIN ERIN Level 1 : No ERIN Level 2 : No ERIN Level 3 : One BOBBY MUNOZ RN - 08/24/2015 18:36 KILN STACKER DCP GENERIC CODE Tracking Acuity : 5 -Non Urgent Tracking Group : [facility] ED MUNOZBOBBY Soumya RN - 08/24/2015 18:36 KILN STACKER Allergy (As Of: 08/24/2015 18:43:01 KILN STACKER) Allergies (Active) Cipro Estimated Onset Date: Unspecified ; Created By: STEVE ANDREA CNP; Reaction Status: Active ;Category: Drug ; Substance: Cipro ; Type: Allergy ; Updated By: STEVE ANDREA CNP; Reviewed Date: 08/24/2015 18:42 KILN STACKER Influenza Virus Vaccine Estimated Onset Date: Unspecified ; Reactions: diarrhea ; Created By: STEVE ANDREA CNP; Reaction Status: Active ; Category: Drug ; Substance: Influenza Virus Vaccine ; Type: Intolerance ; Updated By: STEVE ANDREA CNP; Reviewed Date: 08/24/2015 18:42 KILN STACKER ID Screen Drug Resistant Organism : No Travel Within Last 21 Days : No Contact with someone with Ebola : No BOBBY MUNOZ RN - 08/24/2015 18:36 KILN STACKER Immunizations Immunizations Current : Yes BOBBY MUNOZ RN - 08/24/2015 18:36 KILN STACKER Source: [facility] POWERCHART Document Id: [id number] KILN STACKER!61 STACKER documented in this encounter Miscellaneous Notes Miscellaneous - Juliette Donaldson R.N. - 07/16/2016 2:18 PM CST Health Maintenance Reminder July 16, 2016 NOEMÍ LUNA [address] [facility] [phone] Dear NOEMÍ LUNA, This is a reminder that you are due for a Colonoscopy appointment: at [facility]. Please call the Clinic registration at to schedule an appointment with your primary provider. A pre-procedure physical needs to be performed prior to your procedure. Your colonoscopy willbe scheduled by your primary provider upon completion of the physical. If you had this done elsewhere, please notify the Endoscopy department [phone], to update your chart. We look forward to seeing you soon. Thank you for choosing the [facility] in [place]. Sincerely, JULIETTE DONALDSON Electronic Signature Electronically Signed By: JULIETTE DONALDSON RN On: July 16, 2016 This document has images extracted. Source: [facility] CrossLoop Document Id: [id number] Miscellaneous - Moraima Chase - 08/27/2015 10:19 AM CST Reminder Msg Document Contains Addenda Addendum by JULIETTE DONALDSON RN on July 16, 2016 14:18:45 KILN STACKER Third letter sent today. Addendum by MORAIMA CHASE on March 19, 2016 12:00:47 CDT second letter will be sent to patient March 2016 From: MORAIMA CHASE To: [place] Colonoscopy Pool; Sent: 08/27/2015 10:19:41 KILN STACKER Show up: 08/27/2015 10:19:00 KILN STACKER Subject: Reminder Msg Due Date/Time: 08/27/2015 10:19:00 KILN STACKER Please Remember to: Pt Due for 48 y.o. Colonoscopy Screening. Letter Will be sent to pt. aug 2015 PATIENT: ( ) Call Patient ( ) Ask Patient to ( ) ( ) Call Relative ( ) Schedule Patient ( ) ( ) Call for Heel Seat Fitter Machine ( ) Follow up on Results ( ) Other: PROVIDER: ( ) Call Physician ( ) Call Pharmacist ( ) Call Lab ( ) Other: Special Instructions: Comments: Source: [facility] CrossLoop Document Id: [id number] Miscellaneous - Conversion, Historical Provider Ser - 08/24/2015 8:32 PM KILN STACKER Coding Summary-Paper Based CODING DATE: 09/03/2015 FINAL [facility] STATUS: * Discharged to Home or [...] VERGARA Date Saved: 09/03/2015 09:43 am Source: [facility] CrossLoop Document Id: [id number] Miscellaneous - Nik Cisneros, R.N. - 08/24/2015 8:20 PM CST Valuables/Belongings Valuables/Belongings Entered On: 08/24/2015 20:21 KILN STACKER Performed On: 08/24/2015 20:20 KILN STACKER by NIK CISNEROS RN Valuables/Belongings Valuables/Belongings Grid Valuables with Patient Clothes, Patient Valuables : Coat, Pants, Shirt, Shoes, Undergarments Electronic Devices : Cell phone Jewelry : None Monetary Items : Wallet Personal Devices : None NIK CISNEROS RN - 08/24/2015 20:20 KILN STACKER Home Medication Disposition : None brought in with patient NIK CISNEROS RN - 08/24/2015 20:20 KILN STACKER [facility] Document Id: [id number] KILN STACKER!10 STACKER Miscellaneous - Nik Cisneros RAugustine - 08/24/2015 6:28 PM CST Facility Charge Ticket 2.0 11.0 DX Facility Charge Ticket 2.0 11.0 DX Entered On: 08/24/2015 20:22 KILN STACKER Performed On: 08/24/2015 18:28 KILN STACKER by NIK CISNEROS RN Facility Charge Ticket [...] Nursing Notes ED Primary Assessment,08/24/15 18:45,BOBBY MUNOZ RN SURGICAL PCU Pain Assessment,08/24/15 20:20,NIK CISNEROS RN [facility] Nursing Assessment : Triage and 1-2 nursing assessments [facility] Disposition : Discharge Disposition RTF : discharge [facility] Total Points with Diagnosis Control : 7 [facility] Visit Level : 36218 Level 3 Treatments Prior to Arrival : None NIK CISNEROS RN - 08/24/2015 20:21 KILN STACKER Source: [facility] CrossLoop Document Id: [id number] KILN STACKER!19 STACKER documented in this encounter Plan of Treatment Not on filedocumented as of this encounter Procedures Procedure Name Priority Date/Time Associated Diagnosis Comme nts GLUCOSE POCT, B Routine 08/24/2015 6:59 PM Result s for this KILN STACKER procedure are i n the results section. documented in this encounter Results (ABNORMAL) Glucose, POCT (08/24/2015 6:59 PM KILN STACKER) athologist Signature Glucose, POCT, 183 (H) 70 - 139 POWERCHART B MGDL Comment: AnalyzedBy [id number] Alexander Rosales Performed at Med Surg [address] [facility] [address] [place], [place] ??[address] Specimen Anatomical Collection Method Collection Time Receive d Time (Source) Location / / Volume Laterality Blood 08/24/2015 6:59 PM 5 6:59 KILN STACKER PM KILN STACKER Cierra Barker M.D. LAB POCT ORDERABLES-MANUAL Performing Organization Address City/State/ZIP Code Phon e Number POWERCHART documented in this encounter Visit Diagnoses Not on filedocumented in this encounter Additional Health Concerns Assessment Noted Time PHQ-9 Depression Total Score: 18 02/14/2013 9:53 AM CD T documented as of this encounter
--- OUTSIDE RECORDS SUMMARY | 2022-08-12 09:25 | XMS_ITS | Encounter Summary ---
:1960 Author Organization [facility] Address [address] [place] [address] Care Team Providers Name Role Phone Unavailable Primary Care Provider Unavailable Encounter Details Date Type Department Care Team Description 05/21/2015 Hospital Encounter HX [facility] Cintia Cobb M.D. [address] [place] [phone] (Wo rk) Social History Tobacco Use [...] ABBOTT RN on 27 July 2015 07:52:20 AGRICULTURIST returned request back to pharmacy to let them know pt can't switch Addendum by CINTIA KILGORE MD on 27 July 2015 07:33:59 AGRICULTURIST From: CINTIA KILGORE MD To: FERNY Alexander for Readmission; Sent: 07/27/2015 07:33:59 AGRICULTURIST Subject: RE: B12 He needs to stay on shots since he has had gastric bypass surgery. Pills are not appropriate for himbecause he no longer has the portion of the stomach that absorbs the Vit B12. ThanksCintia From: SHIRLENE ABBOTT RN (FERNY Risk for Readmission) To: CINTIA KILGORE MD; SHIRLENE ABBOTT RN; Sent: 07/26/2015 14:46:45 AGRICULTURIST Subject: B12 On hold pending signature Discontinue:cyanocobalamin (cyanocobalamin 1000 mcg/mL injectable solution) 1 mL Subcut. Monthly vitamin B12 deficiency Qty: 4 mL Refills: 3 Substitutions Allowed Route To Pharmacy - [facility] #[id number] Pt would like to switch to oral pills from injection if appropriate for him. Unsure how that switches over so did not propose. [facility] pharm request Source: [facility] POWERCHART Document Id: [id number] Electronically signed by Conversion, [facility] Card Grinder Helper [id number] at 02/02/2017 7:04 PM CDT Miscellaneous - [...] blood sugar readings? A1C 5.5 on 03-24-15. [phone] or [facility] [phone] Source: [employer] Document Id: [id number] Miscellaneous - Cintia Cobb M.D. - 05/22/2015 6:39 AM CDT Results Notification From: CINTIA KILGORE MD To: [facility] Talk Show Host/Referrals; Sent: 05/22/2015 06:39:10 CDT Show up: 05/22/2015 06:39:00 CDT Subject: Results Notification Please let patient know that his hemoglobin is 9, so it continues to go up. He should continue his iron. We should recheck it in 2 weeks. ThanksCintia Results: Date Result Name Ind Value Ref Range 05/21/2015 18:36 Hgb (L) 9.0 g/dL (13.5 - 17.5) Source: [employer] Document Id: [id number] documented in this encounter Plan of Treatment [...]
--- OUTSIDE RECORDS SUMMARY | 2022-08-12 09:25 | XMS_ITS | Encounter Summary ---
:1960 Author Organization [facility] Address [address] [place] [address] Care Team Providers Name Role Phone Unavailable Primary Care Provider Unavailable Encounter Details Date Type Department Care Team Description 09/21/2015 Hospital Encounter HX [facility] Cintia lindquist M.D. 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 Addendum by SHIRLENE ABBOTT RN on January 22, 2016 13:44:29 CDT Tried to call pt back to give below info - [phone] Addendum by CINTIA KILGORE MD on January [...] will call back to make appt. Source: [facility] POWERCHART Document Id: [id number] Electronically signed by Conversion, [facility] Health Inspector [id number] at 01/31/2017 10:58 AM CDT Miscellaneous - [...] XOCHITL HACKETT on November 12, 2015 16:00:40 CLEAN RICE BROKER No answer at home number - will try again tomorrow. Addendum by XOCHITL HACKETT on 05 November 2015 09:14:12 CLEAN RICE BROKER Message left with client's to him return our call at his convenience. Addendum by XOCHITL HACKETT on 31 October 2015 08:44:50 CLEAN RICE BROKER No answer at above number, will try again later. Addendum by CINTIA KILGORE MD on 30 October 2015 15:58:55 CLEAN RICE BROKER From: CINTIA KILGORE MD To: XOCHITL HACKETT; Sent: 10/30/2015 15:58:55 CLEAN RICE BROKER Subject: RE: *General Message He does take [...] To: CINTIA KILGORE MD; Sent: 10/30/2015 10:36:56 CLEAN RICE BROKER Subject: *General Message Client left a voice [...] whenI spoke with you. Thanks, Nicki Source: [facility] Indelsul Document Id: [id number] Electronically signed by Conversion, [facility] Health Inspector [id number] at 01/31/2017 10:58 AM CDT Miscellaneous - Shirlene Abbott R.N. - 10/22/2015 12:24 PM CST diabetic supplies From: SHIRLENE ABBOTT RN Sent: 10/22/2015 12:24:17 CLEAN RICE BROKER Subject: diabetic supplies Submitted: Order:Rx Lancets Supply MISC Once 100 count to use 2x/wk or as directed.Please include Lancing device. Accu chek, Jolie Plus IDDM 250.00 Qty: 1 box(es) Refills: 1 Substitutions Allowed Route To Pharmacy - [facility] #[id number] Signed by SHIRLENE ABBOTT RN 10/22/2015 12:21:11 Submitted: Order:Rx Test Strips Supply MISC Once 50 count Accu check Jolie Plus Use 2x/week or as directed IDDMII E11.9 Qty: 50 each Refills: 2 Substitutions Allowed Route To Pharmacy - [facility] #[id number] Signed by SHIRLENE ABBOTT RN 10/22/2015 12:20:02 Insurance wants to cover different brand on equipment, sent scripts: Source: [facility] Indelsul Document Id: [id number] Electronically signed by Conversion, [facility] Health Inspector [id number] at 01/31/2017 10:58 AM CDT Miscellaneous - Conversion, Historical Provider Ser - 10/11/2015 12:00 AM CLEAN RICE BROKER Quality Measures Quality Measures Entered On: 11/12/2015 11:53 CLEAN RICE BROKER Performed On: 10/11/2015 0:00 CLEAN RICE BROKER by NATHALIE BUTLER Diabetes Date of Last Eye Exam : 10/11/2015 CLEAN RICE BROKER NATHALIE BUTLER - 11/12/2015 11:53 CLEAN RICE BROKER Source: [facility] Indelsul Document Id: [id number] CLEAN RICE BROKER!3 Miscellaneous - Cintia Cobb M.D. - 09/26/2015 6:49 AM CLEAN RICE BROKER Normal Results Letter 26 September 2015 ED CARLYLE [address] [facility] [phone] Dear LAZ LUNA, Please review the enclosed [...] Lower Extremity Left 09/21/2015 Sincerely, CINTIA KILGORE [id number] [address] Electronic Signature Electronically Signed By: CINTIA KILGORE MD On: 26 September 2015 This document has images extracted. Source: [employer] Document Id: [id number] Electronically signed by Conversion, [facility] Health Inspector [id number] at 01/31/2017 10:58 AM CDT Miscellaneous - Conversion, Historical Provider Ser - 09/21/2015 11:59 PM CLEAN RICE BROKER Coding Summary-Paper Based CODING DATE: 09/24/2015 FINAL [facility] STATUS: * Discharged to Home or [...] CABELLO Date Saved: 09/24/2015 02:59 pm Source: [employer] Document Id: [id number] documented in this encounter Plan of Treatment Not on filedocumented as of this encounter Visit Diagnoses Not on filedocumented in this encounter Additional Health Concerns Assessment Noted Time PHQ-9 Depression Total Score: 18 02/14/2013 9:53 AM CD T documented as of this encounter
--- OUTSIDE RECORDS SUMMARY | 2022-08-12 09:25 | XMS_ITS | Encounter Summary ---
:1960 Author Organization [facility] Address [address] [place] [address] Care Team Providers Name Role Phone Unavailable Primary Care Provider Unavailable Encounter Details Date Type Department Care Team Description 01/04/2015 Hospital Encounter HX [facility] Cintia lindquist M.D. [address] [place] [phone] (Wo rk) Social History Tobacco Use [...] 01/04/2015 10:41 CDT by ANNE MARIE TUTTLE BAGGAGE INSPECTOR, RT Vitals/Ht/Wt Systolic Blood Pressure : 124 [...] LPN, RT - 01/04/2015 10:41 CDT Source: [employer] Document Id: [id number] CDT!12 documented in this encounter Plan of Treatment Not on filedocumented as of this encounter Visit Diagnoses Not on filedocumented in this encounter Additional Health Concerns Assessment Noted Time PHQ-9 Depression Total Score: 18 02/14/2013 9:53 AM CD T documented as of this encounter
--- OUTSIDE RECORDS SUMMARY | 2022-08-12 09:25 | XMS_ITS | Encounter Summary ---
:1960 Author Organization [facility] Address [address] [place] [address] Care Team Providers Name Role Phone Unavailable Primary Care Provider Unavailable Encounter Details Date Type Department Care Team Description 01/16/2015 Hospital Encounter HX [facility] Cintia Jorgensen M.D. [address] [place] [phone] (Wo rk) Social History Tobacco Use [...] Refills: 1 Substitutions Allowed Route To Pharmacy [facility][id number] Signed by CINTIA KILGORE MD 02/06/2015 16:03:30 From: OLIVIA BECERRA V To: CINTIA KILGORE MD; OLIVIA BECERRA V; Sent: 02/06/2015 10:11:39 CDT Subject: Med Management On hold pending signature Order:metoprolol (Metoprolol Tartrate 25 mg oral tablet) 0.5 tab(s) PO 2xDay Qty: 90 tab(s) Duration: 90 day(s) Refills: 1 Substitutions Allowed Route To [facility] #[id number] Documented Discontinue:metoprolol (Metoprolol Tartrate) Signed by OLIVIA BECERRA V 02/06/2015 10:09:27 Pt seen 01/09. BP was 144/87. Had nurse BP visit 01/16 w/ BP 158/82 & 149/87. Unclear if dosing forthis is to be changed. Had been 25mg BID prior to surgery. Now 12.5 mg BID. Please advise Source: [facility] POWERCHART Document Id: [id number] Miscellaneous - Shawnee Haji, L.P.N. - 01/16/2015 5:09 PM CDT Ambulatory Vitals Height Weight Ambulatory Vitals Height Weight Entered On: 01/16/2015 17:09 CDT Performed On: 01/16/2015 17:09 CDT by SHAWNEE HAJI JUMPBASTING FACING BASTER Vitals/Ht/Wt Systolic Blood Pressure : 149 mmHg (HI) Diastolic Blood Pressure : 87 mmHg NIBP Mean : 108 mmHg BP Location : Right upper extremity Blood Pressure Cuff Size : Large Height : 185 cm(Converted to: 6 ft 1 inch(es), 73 inch(es)) SHAWNEE HAJI LPN - 01/16/2015 17:09 CDT Source: [employer] Document Id: [id number] CDT!8 Miscellaneous - Shawnee Haji LPiliP.N. - [...] HAJI LPN - 01/16/2015 16:26 CDT Source: [employer] Document Id: [id number] CDT!7 documented in this encounter Plan of Treatment Not on filedocumented as of this encounter Visit Diagnoses Not on filedocumented in this encounter Additional Health Concerns Assessment Noted Time PHQ-9 Depression Total Score: 18 02/14/2013 9:53 AM CD T documented as of this encounter
--- OUTSIDE RECORDS SUMMARY | 2022-08-12 09:25 | XMS_ITS | Encounter Summary ---
:1960 Author Organization [facility] Address [address] [place] [address] Care Team Providers Name Role Phone Unavailable Primary Care Provider Unavailable Encounter Details Date Type Department Care Team Description 05/12/2015 Hospital Encounter [facility]X [facility] ED Jessika Mehta , P.A.-C. [address] [place] [address] [phone] (Wo rk) Social History Tobacco [...] 05/12/2015 12:13 PM CDT ED Discharge Instructions [address] [address] Name: NOEMÍ LUNA Date of : 1960 12:00 AM Visit Date: 05/12/2015 9:24 AM [facility] Number: [id number] Address: P.Andrew Camp [address] [place] [phone] Primary Care Provider: KEVIN KILGORE MD IMPORTANT: in [place] would like to thank you for allowing [...] you dont have one. Go to [email or web address] and click on Create Your Account. Then, follow the directions to complete the online form. Youll be asked for your [facility] number which you can find at the top of this document. ED Tests and Procedures: Order Status Culture Urine Ordered Helicobacter pylori IgG Ab-[facility] Ordered Thyroid Stimulating Hormone Completed CBC (includes [...] a ride home with a responsible democrat. ICARLYLE ED J , or responsible democrat have received this information and my questions have been answered. I have discussed any challenges I see with this plan with the nurse or physician. Patient Signature or Responsible Libertarian/Relationship Date Time Provider Signature Date Time Source: [facility] [employer] Document Id: [id number] Mark Thakkar R.N. - 05/12/2015 12:13 PM CDT ED Depart Summary [facility] Emergency Department Clinical Discharge Summary PERSON INFORMATION Name CARLYLE NOEMÍ Jim Age 54 Years 1960 12:00 AM Sex Male Language Cameroonian PCP KEVIN KILGORE MD Marital Status Visit Id Visit Reason Weakness or fatigue; Hyperglycemia; personal Specialty Enc Type Emergency Med Service Emergency Medicine Referred by Track Group [facility] ED Discharge 05/12/2015 12:13 PM Tracking Id [id number] Checkout 05/12/2015 12:13 PM Checkin 05/12/2015 9:24 AM Acuity 3 -Urgent Dispo Type Left Against Medical Advice Arrival 05/12/2015 9:24 AM Reg Status Complete LOS 000 02:49 Address: [address] [place] [phone] Comment: PROVIDER INFORMATION Provider Role Provider Contact Time JESSIKA RICO ED Provider 05/12/15 09:42 MARK THAKKAR LAW LIBRARIAN Nurse 05/12/15 10:21 DIAGNOSIS Anemia NOS; Bleeding Gastrointestinal (GI) Obscure; Diabetes Mellitus Type 2; Gastritis NOS Comment: PATIENT EDUCATION INFORMATION Instructions: Follow up: Source: [employer] Document Id: [id number] documented in this encounter ED Notes Mark [...] HERCULES RN - 05/12/2015 12:00 CDT Source: [employer] Document Id: [id number] CDT!8 aMrk Thakkar R.N. - 05/12/2015 12:00 PM CDT ED Pain Assessment ED Pain Assessment Entered On: 05/12/2015 12:00 CDT Performed On: 05/12/2015 12:00 CDT by MARK THAKKAR RN Pain Assessment Pain Symptoms : Yes MARK THAKKAR RN - 05/12/2015 12:00 CDT Source: [facility] POWER[employer] Document Id: [id number] CDT!3 Mark Thakkar R.N. - 05/12/2015 9:48 [...] Medical ; Code: 600.00 ; Contributor System: PadMatcher ; Last Updated: 02/15/2010 10:00 CDT ; [...] Medical ; Code: 250.02 ; Contributor System: [employer] ; Last Updated: 07/24/2011 10:45 LINUX CONSULTANT ; Life Cycle Date: 12/05/2010 ; Life [...] System: PowerChart ; Last Updated: 07/29/2014 7:02 LINUX CONSULTANT ; Life Cycle Status: Active ; Responsible [...] System: PowerChart ; Last Updated: 09/30/2012 15:06 LINUX CONSULTANT ; Life Cycle Date: 09/30/2012 ; Life Cycle Status: Active ; Responsible Provider: STEVE ANDREA CNP; Vocabulary: ICD-9-CM ; Comments: 09/30/2012 15:06 - STEVE ANDREA CNP left Genital warts (ICD-9-CM :078.19 ) Name of Problem: Genital warts ; Recorder: MARILUZ FRAGA MD; Confirmation: Confirmed ; Classification: UPDATE NEEDED ; Code: 078.19 ; Contributor System: PadMatcher; Last Updated: 02/11/2013 16:19 CDT ; Life [...] Code: 695.89 ; Last Updated: 07/14/2012 14:36 LINUX CONSULTANT ; Life Cycle Status: Active ; Responsible [...] System: PowerChart ; Last Updated: 09/05/2010 9:56 LINUX CONSULTANT ; Life Cycle Date: 09/05/2010 ; Life Cycle Status: Active ; Responsible Provider: STEVE ANDREA CNP; Vocabulary: ICD-9-CM ; Comments: 09/30/2013 11:ANOOP ISAAC FACULTY NEUROPSYCHOLOGIST onset unknown Optic disc cupping (ICD-9-CM :377.14 [...] Vocabulary: ICD-9-CM ; Comments: 09/30/2013 11:ANOOP ISAAC FACULTY NEUROPSYCHOLOGIST onset unknown Ulcer of skin NOS (ICD-9-CM :707.9 ) Name of Problem: Ulcer of skin NOS ; Recorder: HALEIGH SCHULTZ CNP; Confirmation: Confirmed ; Classification: UPDATE NEEDED ; Code: 707.9 ; Contributor System: PadMatcher ; Last Updated: 09/18/2010 8:25 LINUX CONSULTANT ; Life Cycle Date: 09/18/2010 ; Life Cycle Status: Active ; Responsible Provider: HALEIGH SCHULTZ CNP; Vocabulary: ICD-9-CM ; Comments: 09/30/2013 11:Kenneth Valdivia QUEVEDOANOOP ROMAN FACULTY NEUROPSYCHOLOGIST onset unknown Unspecified Adjustment Reaction (ICD-9-CM :309.9 ) Name of Problem: Unspecified Adjustment Reaction ; Onset Date: 05/05/2013 ; Confirmation: Confirmed ; Classification: Medical ; Code: 309.9 ; Contributor System: [facility]_HX_PR_UPLOAD ; Last Updated: 12/03/2013 18:36 CDT ; Life Cycle Status: Active ; Vocabulary: ICD-9-CM ; Comments: - Unspecified adjustment reaction Urge Incontinence (ICD-9-CM :788.31 ) Name of Problem: Urge Incontinence ; Recorder: STEVE ANDREA; Confirmation: Confirmed ; Classification: Medical ; Code: 788.31 ; Contributor System: [employer] ; Last Updated: 02/20/2010 8:39 CDT ; Life Cycle Date: 02/20/2010 ; Life Cycle Status: Active ; Responsible Provider: STEVE ANDREA CNP; Vocabulary: ICD-9-CM ; Comments: 09/30/2013 11:46 Shea QUEVEDOROHITANOOP R FACULTY NEUROPSYCHOLOGIST onset unknown Diagnoses(Active) Hyperglycemia Date: 05/12/2015 ; Diagnosis Type: Reason For Visit ; Confirmation: Complaint of ; Clinical Dx: Hyperglycemia ; Classification: Medical ; Clinical Service: Emergency medicine ; Code: PNED; Probability: 0 ; Diagnosis Code: [id number] Weakness or fatigue Date: 05/12/2015 ; Diagnosis Type: Reason For Visit ; Confirmation: Confirmed ; Clinical Dx: Weakness or fatigue ; Classification: Medical ; Clinical Service: Emergency medicine ; Code: PNED ; Probability: 0 ; Diagnosis Code: [id number] Triage Chief Complaint Description : see triage Information Given By : Patient Accompanied By : Alone Mode of Arrival ED : Private vehicle Track : Medical Languages : Cameroonian Patient Informed of Triage Location : Emergency department GCS Assessed : Yes Treatments Prior to Arrival : None Is Patient Female and 13-50 no hysterectomy : No MARK THAKKRA RN - 05/12/2015 9:48 CDT Lois Coma [...] Acuity : 3 -Urgent Tracking Group : [facility] ED MARK THAKKAR RN - 05/12/2015 9:48 [...] Adequate GI Detailed Assessment : Yes ARIANE MAKR Fernandez RN - 05/12/2015 9:48 CDT GI [...] THAKKAR RN - 05/12/2015 9:48 CDT Source: [facility] POWERCHART Document Id: [id number] CDT!77 Jessika Mehta P.A.-C. - 05/12/2015 9:45 [...] on 09/29/2012 at 52 years. Comments: 09/30/2012 LINUX CONSULTANT 15:06 LINUX CONSULTANT - STEVE ANDREA TRAIN BRAKE OPERATOR left Genital warts (078.19) Comments: 09/30/2013 LINUX CONSULTANT 11:47 LINUX CONSULTANT - QUEVEDO, ANOOP R FACULTY NEUROPSYCHOLOGIST onset unknown Tinea pedis* (110.4) Comments: 09/30/2013 LINUX CONSULTANT 11:47 LINUX CONSULTANT - ANOOP QUEVEDO FACULTY NEUROPSYCHOLOGIST onset unknown Tinea cruris. (110.3) Comments: 09/30/2013 LINUX CONSULTANT 11:47 LINUX CONSULTANT ANOOP GONZALEZ FACULTY NEUROPSYCHOLOGIST onset unknown. Surgical history: Cystoscopy ([id number]) on 12/26/2009 at 49 Years. Comments: 02/20/2010 08:36 - STEVE ANDREA TRAIN BRAKE OPERATOR [place] [facility] / normal PSA, TOTAL SCREENING (G0103) on 12/26/2009 at 49 Years. Comments: 02/20/2010 08:38 - STEVE ANDREA TRAIN BRAKE OPERATOR Done at [place] / Result: 1.55 Discectomy ([id number]) on 02/19/1989 at 28 Years. Comments: 12/28/2009 09:38 STEVE WELSH TRAIN BRAKE OPERATOR lumbar L4-L5. Family history: Diabetes mellitus Mother [...] Once, Launch Orders Laboratory: Helicobacter pylori IgG Ab-[facility] (Order Processing): Stat, 05/12/2015 10:48 CDT, Once, [...] Absolute 4.64 10(9)/L Lymph Absolute 1.63 x10(9)/L [place] Absolute 0.58 x10(9)/L Eos Absolute 0.15 x10(9)/L [...] AMA. Disposition: Discharged: Left AMA. Prescriptions: Prescription [facility]: PriLOSEC 40 mg oral delayed release [...] MCNEILL MD On: 05/12/2015 01:57 PM Source: [facility] POWERCHART Document Id: [id number]} Mark Thakkar R.N. - 05/12/2015 9:33 AM [...] Medical ; Code: 600.00 ; Contributor System: PadMatcher ; Last Updated: 02/15/2010 10:00 CDT ; [...] System: PowerChart ; Last Updated: 07/24/2011 10:45 LINUX CONSULTANT ; Life Cycle Date: 12/05/2010 ; Life [...] System: PowerChart ; Last Updated: 07/29/2014 7:02 LINUX CONSULTANT ; Life Cycle Status: Active ; Responsible [...] System: PowerChart ; Last Updated: 09/30/2012 15:06 LINUX CONSULTANT ; Life Cycle Date: 09/30/2012 ; Life [...] Vocabulary: ICD-9-CM ; Comments: 09/30/2013 11:47 - QUEVEOD ANOOP Mora FACULTY NEUROPSYCHOLOGIST onset unknown Hyperlipidemia (ICD-9-CM :272.4 ) Name [...] Code: 695.89 ; Last Updated: 07/14/2012 14:36 LINUX CONSULTANT ; Life Cycle Status: Active ; Responsible [...] System: PowerChart ; Last Updated: 09/05/2010 9:56 LINUX CONSULTANT ; Life Cycle Date: 09/05/2010 ; Life Cycle Status: Active ; Responsible Provider: STEVE ANDREA CNP; Vocabulary: ICD-9-CM ; Comments: 09/30/2013 11:ANOOP ISAAC R FACULTY NEUROPSYCHOLOGIST onset unknown Optic disc cupping (ICD-9-CM :377.14 [...] Medical ; Code: 110.3 ; Contributor System: PadMatcher ; Last Updated: 06/01/2013 9:06 CDT ; Life Cycle Date: 06/01/2013 ; Life Cycle Status: Active ; Responsible Provider: MARILUZ FRAGA MD; Vocabulary: ICD-9-CM ; Comments: 09/30/2013 11:IKE ISAACICA RLPN onset unknown Tinea pedis* (ICD-9-CM :110.4 ) Name of Problem: Tinea pedis* ; Recorder: MARILUZ FRAGA MD; Confirmation: Confirmed ; Classification: Medical ; Code: 110.4 ; Contributor System: [employer]Matcher ; Last Updated: 02/02/2014 8:24 CDT ; Life Cycle Date: 06/01/2013 ; Life Cycle Status: Active ; Responsible Provider: MARILUZ FRAGA MD; Vocabulary: ICD-9-CM ; Comments: 09/30/2013 11:IKE ISAACICA R FACULTY NEUROPSYCHOLOGIST onset unknown Ulcer of skin NOS (ICD-9-CM :707.9 ) Name of Problem: Ulcer of skin NOS ; Recorder: HALEIGH SCHULTZ CNP; Confirmation: Confirmed ; Classification: UPDATE NEEDED ; Code: 707.9 ; Contributor System: [employer]Matcher ; Last Updated: 09/18/2010 8:25 LINUX CONSULTANT ; Life Cycle Date: 09/18/2010 ; Life Cycle Status: Active ; Responsible Provider: HALEIGH SCHULTZ CNP; Vocabulary: ICD-9-CM ; Comments: 09/30/2013 11:47 - ANOOP QUEVEDO FACULTY NEUROPSYCHOLOGIST onset unknown Unspecified Adjustment Reaction (ICD-9-CM :309.9 ) Name of Problem: Unspecified Adjustment Reaction ; Onset Date: 05/05/2013 ; Confirmation: Confirmed ; Classification: Medical ; Code: 309.9 ; Contributor System: [facility]_HX_PR_UPLOAD ; Last Updated: 12/03/2013 18:36 CDT ; Life Cycle Status: Active ; Vocabulary: ICD-9-CM ; Comments: - Unspecified adjustment reaction Urge Incontinence (ICD-9-CM :788.31 ) Name of Problem: Urge Incontinence ; Recorder: STEVE ANDREA; Confirmation: Confirmed ; Classification: Medical ; Code: 788.31 ; Contributor System: [employer]Matcher ; Last Updated: 02/20/2010 8:39 CDT ; Life Cycle Date: 02/20/2010 ; Life Cycle Status: Active ; Responsible Provider: STEVE ANDREA CNP; Vocabulary: ICD-9-CM ; Comments: 09/30/2013 11:46 - ANOOP QUEVEDO FACULTY NEUROPSYCHOLOGIST onset unknown Diagnoses(Active) Hyperglycemia Date: 05/12/2015 ; Diagnosis Type: Reason For Visit ; Confirmation: Complaint of ; Clinical Dx: Hyperglycemia ; Classification: Medical ; Clinical Service: Emergency medicine ; Code: PNED; Probability: 0 ; Diagnosis Code: [id number] Triage Chief Complaint Description : 54 yo male presents to the ED via private vehicle with c/o feeling more fatigue, c/o having high blood surgar levels 120-130's, and intermittent dizziness. Information Given By : Patient Accompanied By : Alone Mode of Arrival ED : Private vehicle Track : Medical Languages : Cameroonian Vital Signs Assessed : Yes GCS Assessed [...] 9:33 CDT Lois Coma Eye Opening Response [place] : Spontaneously Best Verbal Response Lois : Oriented Best Motor Response Lois : Obeys simple commands [place] Coma Score : 15 MARK THAKKAR RN [...] Acuity : 3 -Urgent Tracking Group : [facility] ED MARK THAKKAR RN - 05/12/2015 9:33 [...] THAKKAR RN - 05/12/2015 9:33 CDT Source: [employer] Document Id: [id number] CDT!58 documented in this encounter Miscellaneous Notes Miscellaneous - Conversion, Historical Provider Ser - 05/12/2015 12:13 PM CDT Coding Summary-Paper Based CODING DATE: 05/21/2015 FINAL [facility] STATUS: Left Against Medical Advice PAYOR: [...] HEREDIA Date Saved: 05/21/2015 04:09 pm Source: [employer] Document Id: [id number] [place]baldo - Mark Thakkar R.N. - 05/12/2015 12:00 PM CDT Valuables/Belongings Valuables/Belongings Entered On: 05/12/2015 12:01 CDT Performed On: 05/12/2015 12:00 CDT by MARK THAKKAR RN Valuables/Belongings Belongings Sent Home With : ALL BELONGINGS SENT HOME WITH PATIENT Home Medication Disposition : None brought in with patient MARK THAKKAR RN - 05/12/2015 12:00 CDT [facility] Document Id: [id number] CDT!4 Miscellaneous - Mark Thakkar R.N. - [...] Control : 13 Lynx Visit Level : 48399 Level 5 Treatments Prior to Arrival : None MARK THAKKAR RN - 05/12/2015 12:01 CDT Chief Complaint 11.0 Reason For Visit Category : Gastrointestinal TVL Calculation : 12 ED Chief Complaint Gastrointestinal 11.0 : Abdominal pain TVL for Facility Charge Ticket Dx : Level 4 MARK THAKKAR RN - 05/12/2015 12:01 CDT [facility] Document Id: [id number] CDT!23 documented in this encounter Plan of [...] - 139 POWERCHART B MGDL Comment: AnalyzedBy [id number] Ariane Tovar Performed at Med Surg [address] [facility] [address] [place], [place] ??[address] Specimen Anatomical Collection Method Collection Time Receive d Time (Source) Location / / Volume Laterality Blood 05/12/2015 11:57 05/12/2015 AM CDT 11:57 AM CDT Jessika Mehta P.A.-C. LAB POCT ORDERABLES-MANUAL Performing Organization Address City/State/ZIP Code Phon e Number POWERCHART (ABNORMAL) Urinalysis, Complete, Includes Microscopic (05/12/2015 11:18 AM CDT) [facility] gist Method Time Signature HXUr Color Yellow Colorless POWERCHART Clarity Clear Clear POWERCHART Glucose Negative Negative POWERCHART MGDL HXBILIRUBIN Small (A) Negative POWERCHART Ketones, QL(U) Trace (A) Negative POWERCHART MGDL Specific 1.015 POWERCHART [place], POCT, U pH, POCT, Urine 5.0 <5.0 [...] Phon e Number POWERCHART HELICOBACTER PYLORI IGG AB-[facility] (05/12/2015 10:50 AM CDT) athologist Signature HXH pylori Negative Negative POWERCHART IgG-[place] HXH pylori IgG 3.21 POWERCHART Idx-[place] Comment: Results with Index Values of <8.95 are n egative. Test Performed by: [address] [address] Staff [employer] Officer: Rene Gomez II, M.D., Ph.D. Specimen (Source) [...] LAB BLOOD ADD-ON Performing Organization Address City/[facility] Code Phon e Number POWERCHART (ABNORMAL) CBC with Differential (05/12/2015 10:25 AM CDT) [facility] gist Method Time Signature HXDifferential? Auto POWERCHART Leukocytes 7.0 3.5 - 10.5 POWERCHART X109L Erythrocytes 2.65 (L) 4.32 - POWERCHART 5.72 L2625H Hemoglobin 8.3 (L) 13.5 - POWERCHART 17.5 [...] (Comprehensive Metabolic Panel) (05/12/2015 10:25 AM CDT) [facility] gist Method Time Signature Anion Gap [...] POWERCHART GDL HXeGFR (MDRD) >60 >=60 POWERCHART [id number] 2 eGFR Black/ >60 >=60 POWERCHART Zimbabwean [id number] 2 Specimen (Source) Anatomical Collection Method Collection Time Re ceived Time Location / / Volume Laterality Blood 05/12/2015 10:25 AM CDT Jessika Mehta P.A.-C. LAB BLOOD ADD-ON Performing Organization Address City/State/ZIP Code Phon e Number POWERCHART (ABNORMAL) Glucose, POCT (05/12/2015 9:31 AM CDT) athologist Signature Glucose, POCT, 193 (H) 70 - 139 POWERCHART B MGDL Comment: AnalyzedBy [id number] Ariane Tovar Performed at Med Surg [address] [place] [address] [place], [place] ??[address] Specimen Anatomical Collection Method Collection Time Receive [...]
--- OUTSIDE RECORDS SUMMARY | 2022-08-12 09:25 | XMS_ITS | Encounter Summary ---
:1960 Author Organization [facility] Address [address] [place] [address] Care Team Providers Name Role Phone Unavailable Primary Care Provider Unavailable Encounter Details Date Type Department Care Team Description 09/18/2015 Hospital Encounter HX [facility] [place] Kevin Aguirre M.D. [address] [place] [phone] (Wo rk) Social History Tobacco Use Types Packs/Day Years Used Date Smoking Tobacco: Never Assessed Sex Assigned at Date Recorded Not on file documented as of this encounter Last Filed Vital Signs Vital Sign Reading Time Taken Comments Blood Pressure 139/69 09/18/2015 6:28 PM SHOOK SPLICER Pulse 40 09/18/2015 6:28 PM SHOOK SPLICER Temperature - - Respiratory Rate 16 09/18/2015 6:28 PM SHOOK SPLICER Oxygen Saturation - - Inhaled Oxygen Concentration - - Weight 87.2 kg (192 lb 3.9 oz) 09/18/2015 6:28 PM SHOOK SPLICER Height 180 cm (5' 10.87) 09/18/2015 6:28 PM SHOOK SPLICER Body Mass Index 26.91 09/18/2015 6:28 PM SHOOK SPLICER documented in this encounter Medications at Time [...] Ordered: OV Est Pt Level 4 - 31760 - 25 min 2. Hypertension HTN NOS Blood pressure is acceptable today. Patient is currently on amlodipine and metoprolol. He may benefit from being on an CARMITA inhibitor in the future. Previously his creatinine had been elevated so this was stopped. Ordered: OV Est Pt Level 4 - 83183 - 25 min 3. Hyperlipidemia NOS Lipid panel is at goal. Continue simvastatin. Ordered: OV Est Pt Level 4 - 27430 - 25 min 4. Flutter Atrial NOS Patient continues to be bradycardic. He is also on a small dose of metoprolol. He is asymptomatic. Ordered: OV Est Pt Level 4 - 70993 - 25 min 5. Impotence Organic I advised patient to not take more Cialis than was prescribed. We again discussed other potential options to treat erectile dysfunction including injectable medications or implantable prostheses. Ordered: OV Est Pt Level 4 - 08921 - 25 min 6. Lump Skin Patient is going to return for an ultrasound to further assess this lump. 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 I confirmed this again. The stair builder recommended doing more testing which I think [...] now. Thanks, Kevin From: VINEET RAMIREZ LPN ([place] [facility]) To: KEVIN BULLOCK MD; Sent: 11/17/2016 18:33:53 CDT Subject: *General Message pt lvm that he went to [place] to discuss having surgery today and they turned him down. He said he was angry and went down stairs to talk to some really powerful people within [place] pt services andthey told him that the [...] his time. Please call him back at [phone] and keep trying till he actually picks up as he won't answer numbers he doesn't recognise. If we call several times then he will figure out it is you trying to call. Also Preethi marketing agent listened to message to confirm the information he was leaving. Source: [facility] POWERCHART Document Id: [id number] Electronically signed by Dayami, [facility] Camera Tuning Engineer [id number] at 01/31/2017 10:58 AM CDT Telephone Encounter - Conversion, Historical Provider Ser - 04/14/2016 10:20 AM CDT *Phone Message Document Contains Addenda Addendum by HARVEY REDDY LPN on April 15, 2016 13:17:09 CDT noted Addendum by KEVIN KILGORE MD on April 15, 2016 12:42:30 CDT From: KEVIN KILGORE MD To: [facility] Gu[facility]; Sent: 04/15/2016 12:42:30 CDT Subject: RE: *Phone Message Lasix sent to [facility] until appt on 04/29. Kevin Segura Addendum by ANGEL NGUYEN on April 14, 2016 11:40:08 CDT From: ANGEL NGUYEN ([facility] Gu[facility]) To: KEVIN KILGORE [...] is next , 04/29. From: TALYA KELSEY ([facility] Mortician Supplies Sales Representative) To: [place] [facility]; Sent: 04/14/2016 10:20:45 [...] back cell phone number ( ) [facility] Document Id: [id number] Telephone Encounter - Conversion, Historical Provider Ser [...] the year for him. From: TALYA KELSEY ([facility] Mortician Supplies Sales Representative) To: [place] [facility]; Sent: 03/14/2016 15:11:39 [...] of the medication. Please call pt at [phone] Advice/Action: Source used: ( ) Verbalizes understanding [...] back cell phone number ( ) Source: [facility] POWERCHART Document Id: [id number] Miscellaneous - Vineet Ramirez L.P.N. - 10/18/2015 10:06 AM CST *General Message Document Contains Addenda Addendum by ANGEL NGUYEN on 22 October 2015 12:39:20 SHOOK SPLICER Below lasix info was relayed to patient. Addendum by VINEET RAMIREZ LPN on 22 October 2015 12:30:46 SHOOK SPLICER Shirlene has information regarding pt. when he calls back. Addendum by ANGEL NGUYEN on 19 October 2015 15:08:45 SHOOK SPLICER Left a message at his residence to please call us back. Addendum by KEVIN KILGORE MD on 19 October 2015 13:54:08 SHOOK SPLICER From: KEVIN KILGORE MD To: [facility]; Sent: 10/19/2015 13:54:08 SHOOK SPLICER Subject: RE: *General Message If his weight has increased by 2 pounds in 24 hours or 5 pounds in 1 week, he can take an extra doseof Lasix and see if that helps. If it continues to be an issue, we should see him back. Kevin Segura From: VINEET RAMIREZ LPN To: KEVIN KILGORE MD; Sent: 10/18/2015 10:06:06 SHOOK SPLICER Subject: *General Message pt called and stated that he wt at home has [id number] and today 189.5. He kept saying his [...] today. He will be available then. Source: [facility] POWERCHART Document Id: [id number] Electronically signed by Conversion, [facility] Camera Tuning Engineer [id number] at 01/31/2017 10:58 AM CDT Miscellaneous - Kevin Bullock M.D. - 09/18/2015 7:10 PM SHOOK SPLICER Ambulatory Patient Summary [address] [id number] Visit Information Name: NOEMÍ LUNA [facility] Number: [id number] Current Date: 09/18/2015 19:10:50 Physicians [...] you dont have one. Go to [email or web address] and click on Create Your Account. Then, follow the directions to complete the online form. Youll be asked for your [facility] number which you can find at the top of this document. Your Goals/Additional instructions: Source: [facility] POWERCHART Document Id: [id number] K SPLICER Miscellaneous - Kevin Bullock M.D. - 09/18/2015 7:10 PM SHOOK SPLICER Ambulatory Discharge Medication List [address] [id number] Visit Information Name: NOEMÍ LUNA [facility] Number: [id number] Visit Date: 09/18/2015 19:10:49 Attending [...] MD Signed On:18-SEP-2015 19:10:35 Additional Information: Source: [facility] POWERCHART Document Id: [id number] K SPLICER Miscellaneous - Angel Nguyen LPiliPPiliN. - 09/18/2015 6:28 PM CST Adult Dye Tank Tender Intake/History Document Has Been Updated Adult Dye Tank Tender Intake/History Entered On: 09/18/2015 18:35 SHOOK SPLICER Performed On: 09/18/2015 18:28 SHOOK SPLICER by ANGEL NGUYEN Intake Chief Complaint : Client states he's due for follow up. Discuss labs. Of note, client started Lasix again on his own, taking one tab daily but is taking AT NIGHT. Denies nocturia. ANGEL NGUYEN - 09/18/2015 18:28 SHOOK SPLICER Ambulatory Intake Additional Information : Client here for follow - gastric bypass 11/21. Called in by us - states he had labs drawn on 09/15/15. Here to review. Left little finger numbness. ANGEL NGUYEN - 09/18/2015 18:36 SHOOK SPLICER Temperature Core : 36.0 DegC(Converted to: 96.8 [...] 26.91 kg/m2 ANGEL NGUYEN - 09/18/2015 18:28 SHOOK SPLICER General Info Information Given By : Patient Languages : Kiswahili Is Patient Female and 13-50 no hysterectomy : No ANGEL NGUYEN - 09/18/2015 18:28 SHOOK SPLICER Subjective Pain Symptoms : No ANGEL NGUYEN - 09/18/2015 18:28 SHOOK SPLICER Dependent Habits Exposure to Tobacco Smoke : Care provider denies smoking in home, Other: never Smoking Status : Never smoker Tobacco 2A : No Tobacco Use/Currently Using : No Tobacco Use/Last 30 Days : No Tobacco Use/Last 12 months : No ANGEL NGUYEN - 09/18/2015 18:28 SHOOK SPLICER Alcohol Use : No ANGEL NGUYEN 09/18/2015 18:36 SHOOK SPLICER ANGEL NGUYEN 09/18/2015 18:36 SHOOK SPLICER Caffeine Use Grid Caffeine Use : Current Type : Coffee, Soft drinks Frequency : Weekly Amount : soda- weekly; coffee- 1x/week ANGEL NGUYEN Violette 09/18/2015 18:28 SHOOK SPLICER Recreational Drug Use Grid Drug Use : None ANGEL NGUYEN Violette 09/18/2015 18:28 SHOOK SPLICER Source: [facility] Advanced LEDs Document Id: [id number] SHOOK SPLICER!5 K SPLICER Miscellaneous - Tiffany Dean L.P.N. - 09/10/2015 9:11 AM CST *General Message Document Contains Addenda Addendum by KEVIN KILGORE MD on 10 September 2015 10:45:50 SHOOK SPLICER From: KEVIN KILGORE MD To: TIFFANY DEAN LPN; Sent: 09/10/2015 10:45:50 SHOOK SPLICER Subject: RE: *General Message Thanks for the update. From: TIFFANY DEAN LPN To: KEVIN KILGORE MD; Sent: 09/10/2015 09:11:25 SHOOK SPLICER Subject: *General Message Dr. Song, pt. called and shared he got a letter about his wt. gain. He shared he feels that hiswt. gain is due to water gain. He has been taking his water pills and has wt. loss in the am approx.4 lbs.He will be seeing you . Source: [facility] POWERCHART Document Id: [id number] Electronically signed by Conversion, [facility] Camera Tuning Engineer [id number] at 01/31/2017 10:58 AM CDT documented in this encounter Plan of Treatment Not on filedocumented as of this encounter Visit Diagnoses Not on filedocumented in this encounter Additional Health Concerns Assessment Noted Time PHQ-9 Depression Total Score: 18 02/14/2013 9:53 AM CD T documented as of this encounter
--- OUTSIDE RECORDS SUMMARY | 2022-08-12 09:25 | XMS_ITS | Encounter Summary ---
:[address] [facility] Address [address] [place] [address] Care Team Providers Name Role Phone Unavailable Primary Care Provider Unavailable Encounter Details Date Type Department Care Team Description 05/13/2015 Hospital Encounter HX [facility] Eugene Bunch III, M.D. [address] [place] [address] [phone] (Wo rk) Social History Tobacco Use Types [...] 05/13/2015 3:19 PM CDT ED Discharge Instructions [address] [address] Name: NOEMÍ LUNA Date of : 1960 12:00 AM Visit Date: 05/13/2015 12:[address] [facility] Number: [id number] Address: [address] [facility] [id number] Primary Care Provider: KEVIN KILGORE MD IMPORTANT: [facility] in [place] would like to thank you for allowing us to assist you with your healthcare needs. The following includes patient education materials and informationregarding your injury/illness. Diagnosis: 1:Anemia NOS Follow-Up Instructions: With: Address: When: KEVIN KILGORE [address] [place] [phone] Business (1) In 2days 05/15/2015 Your Upcoming Appointments: Date Time Location Provider 05/15/2015 15:00 [facility] Family [facility] Kevin Song MD Patient Education Materials: When [...] output; very dark urine) Abdominal pain ?? [phone] [place] [address]. All rights reserved. This information is not [...] if you dont have one. Go to [email or web address] and click on Create Your Account. Then, follow the directions to complete the online form. Youll be asked for your [facility] number which you can find at the [...] Democrat/Relationship Date Time Provider Signature Date Time This document has images extracted. Please consider using [employer] for all your patient education needs. Source: [employer] Document Id: [id number] Mark Thakkar R.N. - 05/13/2015 3:19 PM CDT ED Depart Summary [facility] Emergency Department Clinical Discharge Summary PERSON INFORMATION Name NOEMÍ LUNA Age 54 Years 1960 12:00 AM Sex Male Language [place] PCP KEVIN KILGORE MD Marital Status Visit Id Visit Reason Anemia; Taking blood sample; hemoglobin check Specialty Enc Type Emergency Med Service Emergency Medicine Referred by Track Group [facility] ED Discharge 05/13/2015 3:19 PM Tracking Id [id number] Checkout 05/13/2015 3:19 PM Checkin 05/13/2015 12:38 PM Acuity 5 -Non Urgent Dispo Type Left Against Medical Advice Arrival 05/13/2015 12:38 PM Reg Status Complete LOS 000 02:41 Address: [address] [id number] Comment: PROVIDER INFORMATION Provider Role Provider Contact Time MARK THAKKAR HEAVY EQUIPMENT SERVICE TECHNICIAN Nurse 05/13/15 12:52 EUGENE BUNCH III, MD ED Provider 05/13/15 12:52 DIAGNOSIS 1:Anemia NOS Comment: PATIENT EDUCATION INFORMATION Instructions: When You Have Gastrointestinal (GI) Bleeding Follow up: With: Address: When: KEVIN KILGORE [address] [place] [phone] Business (3) In 2days 05/15/2015 Source: [employer] Document Id: [id number] documented in this encounter ED Notes Mark [...] THAKKAR RN - 05/13/2015 15:17 CDT Source: [employer] Document Id: [id number] CDT!8 Mark Thakkar R.N. - 05/13/2015 2:48 [...] THAKKAR RN - 05/13/2015 14:48 CDT Source: [employer] Document Id: [id number] CDT!7 Mark Thakkar R.N. - 05/13/2015 2:48 PM CDT ED Pain Assessment ED Pain Assessment Entered On: 05/13/2015 14:48 CDT Performed On: 05/13/2015 14:48 CDT by MARK THAKKAR RN Pain Assessment Pain Symptoms : Yes MARK THAKKAR RN - 05/13/2015 14:48 CDT Source: [facility] POWERCHART Document Id: [id number] CDT!3 Eugene Bunch M.D. - 05/13/2015 2:09 [...] on 09/29/2012 at 52 years. Comments: 09/30/2012 LADLE CLEANER 15:06 STEVE COUCH CNP left Genital warts (078.19) Comments: 09/30/2013 LADLE CLEANER 11:47 ANOOP MESSER LPN onset unknown Tinea pedis* (110.4) Comments: 09/30/2013 LADLE CLEANER 11:47 ANOOP MESSER NEONATAL PEDIATRIC NURSE onset unknown Tinea cruris. (110.3) Comments: 09/30/2013 LADLE CLEANER 11:47 ANOOP MESSER NEONATAL PEDIATRIC NURSE onset unknown. Surgical history: Gastric bypass (SNOMED CT 9960653567) on 11/19/2014 at 54 Years. Cystoscopy (SNOMED CT [id number]) on 12/26/2009 at 49 Years. Comments: 02/20/2010 08:36 - STEVE ANDREA CNP [facility] / normal PSA, TOTAL SCREENING (CPT4 G0103) on 12/26/2009 at 49 Years. Comments: 02/20/2010 08:38 - STEVE ANDREA CNP Done at [facility] / Result: 1.55 Discectomy (SNOMED CT 7477829) on 02/19/1989 at 28 Years. 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 Family history: Diabetes mellitus Mother [...] Absolute 4.64 10(9)/L Lymph Absolute 1.63 x10(9)/L [place] Absolute 0.58 x10(9)/L Eos Absolute 0.15 x10(9)/L [...] III, MD On: 05/13/2015 03:06 PM [facility] POWER[facility]ART Document Id: [id number]} Mark Thakkar R.N. - 05/13/2015 1:01 PM [...] System: PowerChart ; Last Updated: 07/24/2011 10:45 LADLE CLEANER ; Life Cycle Date: 12/05/2010 ; Life [...] Responsible Provider: SETVE ANDREA CNP; Vocabulary: ICD-9-CM ; Comments: 09/30/2013 11:46 - ANOOP QUEVEDO Abby NEONATAL PEDIATRIC NURSE onset unknown Flutter Atrial NOS (ICD-9-CM :427.32 ) Name of Problem: Flutter Atrial NOS ; Recorder: KEVIN KILGORE MD; Confirmation: Confirmed ; Classification: Medical ; Code: 427.32 ; Contributor System: PowerChart ; Last Updated: 07/29/2014 7:02 LADLE CLEANER ; Life Cycle Status: Active ; Responsible [...] System: PowerChart ; Last Updated: 09/30/2012 15:06 LADLE CLEANER ; Life Cycle Date: 09/30/2012 ; Life [...] Code: 695.89 ; Last Updated: 07/14/2012 14:36 LADLE CLEANER ; Life Cycle Status: Active ; Responsible [...] System: PowerChart ; Last Updated: 09/05/2010 9:56 LADLE CLEANER ; Life Cycle Date: 09/05/2010 ; Life Cycle Status: Active ; Responsible Provider: STEVE ANDREA CNP; Vocabulary: ICD-9-CM ; Comments: 09/30/2013 11:ANOOP ISAAC R NEONATAL PEDIATRIC NURSE onset unknown Optic disc cupping (ICD-9-CM :377.14 [...] Medical ; Code: 110.3 ; Contributor System: [employer] ; Last Updated: 06/01/2013 9:06 CDT ; Life Cycle Date: 06/01/2013 ; Life Cycle Status: Active ; Responsible Provider: MARILUZ FRAGA MD; Vocabulary: ICD-9-CM ; Comments: 09/30/2013 11:ANOOP ISAAC RLPN onset unknown Tinea pedis* (ICD-9-CM :110.4 ) Name of Problem: Tinea pedis* ; Recorder: MARILUZ FRAGA MD; Confirmation: Confirmed ; Classification: Medical ; Code: 110.4 ; Contributor System: [employer] ; Last Updated: 02/02/2014 8:24 CDT ; Life Cycle Date: 06/01/2013 ; Life Cycle Status: Active ; Responsible Provider: MARILUZ FRAGA MD; Vocabulary: ICD-9-CM ; Comments: 09/30/2013 11:ANOOP ISAAC R NEONATAL PEDIATRIC NURSE onset unknown Ulcer of skin NOS (ICD-9-CM :707.9 ) Name of Problem: Ulcer of skin NOS ; Recorder: HALEIGH SCHULTZ CNP; Confirmation: Confirmed ; Classification: UPDATE NEEDED ; Code: 707.9 ; Contributor System: PowerChart ; Last Updated: 09/18/2010 8:25 LADLE CLEANER ; Life Cycle Date: 09/18/2010 ; Life Cycle Status: Active ; Responsible Provider: HALEIGH SCHULTZ CNP; Vocabulary: ICD-9-CM ; Comments: 09/30/2013 11:47 - ANOOP QUEVEDO LPN onset unknown Unspecified Adjustment Reaction (ICD-9-CM :309.9 ) Name of Problem: Unspecified Adjustment Reaction ; Onset Date: 05/05/2013 ; Confirmation: Confirmed ; Classification: Medical ; Code: 309.9 ; Contributor System: [facility]X_[facility]_UPLOAD ; Last Updated: 12/03/2013 18:36 CDT ; Life Cycle Status: Active ; Vocabulary: ICD-9-CM ; Comments: - Unspecified adjustment reaction Urge Incontinence (ICD-9-CM :788.31 ) Name of Problem: Urge Incontinence ; Recorder: STEVE ANDREA; Confirmation: Confirmed ; Classification: Medical ; Code: 788.31 ; Contributor System: [employer] ; Last Updated: 02/20/2010 8:39 CDT [...] PNED ; Probability: 0 ; Diagnosis Code: [id number] Triage Chief Complaint Description : see triage note Information Given By : Patient Accompanied By : Spouse Mode of Arrival ED : Private vehicle Track : Medical Languages : [place] Patient Informed of Triage Location : Emergency department GCS Assessed : Yes Treatments Prior to Arrival : None Is Patient Female and 13-50 no hysterectomy : No MARK THAKKAR RN - 05/13/2015 13:01 CDT Lois Coma Eye Opening Response [place] : Spontaneously Best Verbal Response [place] : Oriented Best Motor Response [place] : Obeys simple commands [place] Coma Score : 15 MARK THAKKAR RN [...] : 5 -Non Urgent Tracking Group : [facility] ED MARK THAKKAR Jim RN [...] : Dry Skin Temperature : Warm AKIRADANIELLE MurraySomuya Fernandez RN - 05/13/2015 13:01 CDT Neurological [...] THAKKAR RN - 05/13/2015 13:01 CDT Source: [facility] [employer] Document Id: [id number] CDT!75 Mark Thakkar R.N. - 05/13/2015 12:53 [...] Medical ; Code: 600.00 ; Contributor System: [employer] ; Last Updated: 02/15/2010 10:00 CDT ; Life Cycle Date: 02/15/2010 ; Life Cycle Status: Active ; Responsible Provider: STEVE ANDREA CNP; Vocabulary: ICD-9-CM ; Comments: 09/30/2013 11:46 - ANOOP QUEVEDO R NEONATAL PEDIATRIC NURSE onset unknown DM II (or NOS), uncontrolled (ICD-9-CM :250.02 ) Name of Problem: DM II (or NOS), uncontrolled ; Onset Date: 12/28/2009 ; Recorder: STEVE ANDREA CNP; Confirmation: Confirmed ; Classification: Medical ; Code: 250.02 ; Contributor System: PowerChart ; Last Updated: 07/24/2011 10:45 LADLE CLEANER ; Life Cycle Date: 12/05/2010 ; Life [...] ; Comments: 09/30/2013 11:47 - QUEVEDOANOOP R NEONATAL PEDIATRIC NURSE onset unknown Erectile dysfunction* (ICD-9-CM :607.84 ) Name of Problem: Erectile dysfunction* ; Recorder: STEVE ANDREA CNP; Confirmation: Confirmed ; Classification: Medical ; Code: 607.84 ; Contributor System: PowerChart ; Last Updated: 12/28/2009 9:40 CDT ; Life Cycle Date: 12/28/2009 ; Life Cycle Status: Active ; Responsible Provider: STEVE ANDREA CNP; Vocabulary: ICD-9-CM ; Comments: 09/30/2013 11:46 - QUEVEDOANOOP R NEONATAL PEDIATRIC NURSE onset unknown Flutter Atrial NOS (ICD-9-CM :427.32 ) Name of Problem: Flutter Atrial NOS ; Recorder: KEVIN KILGORE MD; Confirmation: Confirmed ; Classification: Medical ; Code: 427.32 ; Contributor System: [employer] ; Last Updated: 07/29/2014 7:02 LADLE CLEANER ; Life Cycle Status: Active ; Responsible Provider: KEVIN KILGORE MD; Vocabulary: ICD-9-CM Flutter Atrial NOS (ICD-9-CM :427.32 ) Name of Problem: Flutter Atrial NOS ; Recorder: JOSIE CASTANEDA LPN, RT; Confirmation: Confirmed ; Classification: Medical ; Code: 427.32 ; Contributor System: [employer] ; Last Updated: 01/04/2015 10:57 CDT ; Life Cycle Status: Active ; Vocabulary: ICD-9-CM Fracture Closed Radial head (ICD-9-CM :813.05 ) Name of Problem: Fracture Closed Radial head ; OnsetDate: 09/29/2012 ; Recorder: STEVE ANDREA CNP; Confirmation: Confirmed ; Classification: Medical ; Code: 813.05 ; Contributor System: [employer] ; Last Updated: 09/30/2012 15:06 LADLE CLEANER ; Life Cycle Date: 09/30/2012 ; Life Cycle Status: Active ; Responsible Provider: STEVE ANDREA CNP; Vocabulary: ICD-9-CM ; Comments: 09/30/2012 15:06 - STEVE ANDREA CNP left Genital warts (ICD-9-CM :078.19 ) Name of Problem: Genital warts ; Recorder: MARILUZ FRAGA MD; Confirmation: Confirmed ; Classification: UPDATE NEEDED ; Code: 078.19 ; Contributor System: [employer]; Last Updated: 02/11/2013 16:19 CDT ; Life [...] Code: 695.89 ; Last Updated: 07/14/2012 14:36 LADLE CLEANER ; Life Cycle Status: Active ; Responsible [...] System: PowerChart ; Last Updated: 09/05/2010 9:56 LADLE CLEANER ; Life Cycle Date: 09/05/2010 ; Life Cycle Status: Active ; Responsible Provider: STEVE ANDREA CNP; Vocabulary: ICD-9-CM ; Comments: 09/30/2013 11:47 - ANOOP QUEVEOD LPN onset unknown Optic disc cupping (ICD-9-CM [...] Medical ; Code: 110.3 ; Contributor System: [employer] ; Last Updated: 06/01/2013 9:06 CDT ; Life Cycle Date: 06/01/2013 ; Life Cycle Status: Active ; Responsible Provider: MARILUZ FRAGA MD; Vocabulary: ICD-9-CM ; Comments: 09/30/2013 11:ANOOP ISAAC RLPN onset unknown Tinea pedis* (ICD-9-CM :110.4 ) Name of Problem: Tinea pedis* ; Recorder: MARILUZ FRAGA MD; Confirmation: Confirmed ; Classification: Medical ; Code: 110.4 ; Contributor System: [employer] ; Last Updated: 02/02/2014 8:24 CDT ; Life Cycle Date: 06/01/2013 ; Life Cycle Status: Active ; Responsible Provider: MARILUZ FRAGA MD; Vocabulary: ICD-9-CM ; Comments: 09/30/2013 11:47 ANOOP GONZALEZ R NEONATAL PEDIATRIC NURSE onset unknown Ulcer of skin NOS (ICD-9-CM :707.9 ) Name of Problem: Ulcer of skin NOS ; Recorder: HALEIGH SCHULTZ CNP; Confirmation: Confirmed ; Classification: UPDATE NEEDED ; Code: 707.9 ; Contributor System: [employer]Chart ; Last Updated: 09/18/2010 8:25 LADLE CLEANER ; Life Cycle Date: 09/18/2010 ; Life Cycle Status: Active ; Responsible Provider: HALEIGH SCHULTZ CNP; Vocabulary: ICD-9-CM ; Comments: 09/30/2013 11:ANOOP ISAAC NEONATAL PEDIATRIC NURSE onset unknown Unspecified Adjustment Reaction (ICD-9-CM :309.9 ) Name of Problem: Unspecified Adjustment Reaction ; Onset Date: 05/05/2013 ; Confirmation: Confirmed ; Classification: Medical ; Code: 309.9 ; Contributor System: [facility]PLOAD ; Last Updated: 12/03/2013 18:36 CDT [...] ; Comments: 09/30/2013 11:46 - ANOOP QUEVEDO NEONATAL PEDIATRIC NURSE onset unknown Diagnoses(Active) Taking blood sample Date: 05/13/2015 ; Diagnosis Type: Reason For Visit ; Confirmation: Complaint of; Clinical Dx: Taking blood sample ; Classification: Medical ; Clinical Service: Emergency medicine ; Code: PNED ; Probability: 0 ; Diagnosis Code: [id number] Triage Chief Complaint Description : 54 yo [...] Private vehicle Track : Medical Languages : [place] Patient Informed of Triage Location : Emergency [...] MARK THAKKAR RN - 05/13/2015 12:53 CDT [place] Coma Eye Opening Response [place] : Spontaneously Best Verbal Response [place]is : Oriented Best Motor Response [place] : Obeys simple commands Lois Coma Score [...] 05/13/2015 12:53 CDT] ) Quality : Aching MAKR THAKKAR RN - 05/13/2015 12:53 CDT ED Physician Notification Time ED Physician Notification Time : 05/13/2015 12:58 CDT MARK THAKKAR RN - 05/13/2015 12:53 CDT ERIN ERIN Level 1 : No ERIN Level 2 : No ERIN Level 3 : One MARK THAKKAR RN - 05/13/2015 12:53 CDT DCP GENERIC CODE Tracking Acuity : 5 -Non Urgent Tracking Group : [facility] ED MARK THAKKAR RN - [...] THAKKAR RN - 05/13/2015 12:53 CDT Source: [facility] [employer] Document Id: [id number] CDT!52 documented in this encounter Miscellaneous Notes [...] that he would rather have care at [facility]-. Discussed with patient that he needs to take recommended RX and follow up sooner in ED if sx worsen. Patient verbalized understanding. MARK THAKKAR RN - 05/14/2015 8:21 CDT Source: [facility] POWERCHART Document Id: [id number] CDT!6 Miscellaneous - Conversion, Historical Provider Ser - 05/13/2015 3:19 PM CDT Coding Summary-Paper Based CODING DATE: 05/22/2015 FINAL [facility] STATUS: Left Against Medical Advice [...] HEREDIA Date Saved: 05/22/2015 08:26 am Source: [employer] Document Id: [id number] Miscellaneous - Mark Thakkar R.N. - 05/13/2015 [...] THAKKAR RN - 05/13/2015 15:17 CDT Source: [employer] Document Id: [id number] CDT!11 Miscellaneous - Mark Thakkar R.N. - 05/13/2015 2:48 PM CDT Valuables/Belongings Valuables/Belongings Entered On: 05/13/2015 14:49 CDT Performed On: 05/13/2015 14:48 CDT by MARK THAKKAR RN Valuables/Belongings Belongings Sent Home With : all belongings sent home with patient Home Medication Disposition : None brought in with patient MARK THAKKAR RN - 05/13/2015 14:48 CDT [facility] [employer] Document Id: [id number] CDT!4 Miscellaneous - Mark Thakkar R.N. - [...] Control : 8 Lynx Visit Level : 42821 Level 4 Treatments Prior to Arrival : None MARK THAKKAR RN - 05/13/2015 14:49 CDT Chief Complaint 11.0 Reason For Visit Category : Gastrointestinal TVL Calculation : 12 ED Chief Complaint Gastrointestinal 11.0 : Abdominal pain TVL for Facility Charge Ticket Dx : Level 4 MARK THAKKAR RN - 05/13/2015 14:49 CDT [facility]: [facility] [employer] Document Id: [id number] CDT!23 documented in this encounter Plan of [...]
--- OUTSIDE RECORDS SUMMARY | 2022-08-12 09:25 | XMS_ITS | Encounter Summary ---
:1960 Author Organization [facility] Address [address] [place] [address] Care Team Providers Name Role Phone Unavailable Primary Care Provider Unavailable Encounter Details Date Type Department Care Team Description 04/14/2015 Hospital Encounter HX [facility] ED Alexandra Barker M.D. [address] [place] [address] (Wo rk) Social History Tobacco Use Types [...] 04/14/2015 5:42 PM CDT ED Discharge Instructions [address] [address] Name: NOEMÍ LUNA Date of : 1960 12:00 AM Visit Date: 04/14/2015 3:44 PM [facility] Number: [id number] Address: [address] [facility] [id number] Primary Care Provider: KEVIN KILGORE MD IMPORTANT: [facility] in [place] would like to thank you for allowing us to assist you with your healthcare needs. The following includes patient education materials and informationregarding your injury/illness. Diagnosis: Pain Chest Wall (CWP) Follow-Up Instructions: With: Address: When: KEVIN KILGORE [address] [place] [phone] Business (1) Within As Needed Comments: Your [...] as directed by your healthcare provider ?? [phone] [facility], [address] [place] [address], [place] [address]. All rights reserved. This information is not [...] if you dont have one. Go to [email or web address] and click on Create Your Account. Then, follow the directions to complete the online form. Youll be asked for your [facility] number which you can find [...] a ride home with a responsible democrat. I, LUNA, ED J , or responsible democrat have received this information and my questions have been answered. I have discussed any challenges I see with this plan with the nurse or physician. Patient Signature or Responsible Alliance Party/Relationship Date Time Provider Signature Date Time jyoti This document has images extracted. Please consider using [facility] for all your patient education needs. Source: [facility] [employer] Document Id: [id number] Ana Reeves RKevin. - 04/14/2015 5:42 PM CDT ED Depart Summary [facility] Emergency Department Clinical Discharge Summary PERSON INFORMATION Name NOEMÍ LUNA Age 54 Years 1960 12:00 AM Sex Male Language Palauan PCP KEVIN KILGORE MD Marital Status Visit Id Visit Reason Rib/trunk pain-swelling; back and rib pain Specialty Enc Type Emergency Med Service Emergency Medicine Referred by Track Group [facility] ED Discharge 04/14/2015 5:28 PM Tracking Id [id number] Checkout 04/14/2015 5:28 PM Checkin 04/14/2015 3:44 PM Acuity 3 -Urgent Dispo Type * Discharged to Home or Self Care Arrival 04/14/2015 3:44 PM Reg Status Complete LOS 000 01:44 Address: [address] [place] [phone] Comment: PROVIDER INFORMATION Provider Role Provider Contact Time ANA REEVES DRAW BENCH OPERATOR HELPER Nurse 04/14/15 16:09 CIERRA BARKER MD ED Provider 04/14/15 16:12 DIAGNOSIS Pain Chest Wall (CWP) Comment: PATIENT EDUCATION INFORMATION Instructions: CHEST WALL STRAIN Follow up: With: Address: When: KEVIN NELSON[address] [address] Business (1) Within As Needed Comments: Source: [employer] Document Id: [id number] documented in this encounter ED Notes Ana [...] REEVES RN - 04/14/2015 17:34 CDT Source: [employer] Document Id: [id number] CDT!7 Ana Reeves R.N. - 04/14/2015 5:34 PM CDT ED Pain Assessment ED Pain Assessment Entered On: 04/14/2015 17:34 CDT Performed On: 04/14/2015 17:34 CDT by ANA REEVES RN Pain Assessment Pain Symptoms : Yes ANA REEVES RN - 04/14/2015 17:34 CDT Source: [employer] Document Id: [id number] CDT!3 Cierra Barker M.D. - 04/14/2015 4:27 [...] on 09/29/2012 at 52 years. Comments: 09/30/2012 PAPER MACHINE SUPERVISOR 15:06 STEVE COUCH CNP left Genital warts (078.19) Comments: 09/30/2013 PAPER MACHINE SUPERVISOR 11:47 PAPER MACHINE SUPERVISOR ANOOP GONZALEZ WASH MILL OPERATOR onset unknown Tinea pedis* (110.4) Comments: 09/30/2013 PAPER MACHINE SUPERVISOR 11:47 ANOOP MESSER WASH MILL OPERATOR onset unknown Tinea cruris. (110.3) Comments: 09/30/2013 PAPER MACHINE SUPERVISOR 11:47 ANOOP MESSER WASH MILL OPERATOR onset unknown. Surgical history: Cystoscopy ([id number]) on 12/26/2009 at 49 Years. Comments: 02/20/2010 08:36 - STEVE ANDREA CNP [facility] / normal PSA, TOTAL SCREENING (G0103) on 12/26/2009 at 49 Years. Comments: 02/20/2010 08:38 - STEVE ANDREA CNP Done at [place] / Result: 1.55 Discectomy ([id number]) on 02/19/1989 at 28 Years. Comments: 12/28/2009 [...] PM This document has images extracted. Source: [facility] POWERCHART Document Id: {[id number]} Ana Reeves RPiliN. - 04/14/2015 4:06 PM [...] Comments: 09/30/2013 11:46 - QUEVEDOIKE ROMANICA R WASH MILL OPERATOR onset unknown DM II (or NOS), uncontrolled (ICD-9-CM :250.02 ) Name of Problem: DM II (or NOS), uncontrolled ; Onset Date: 12/28/2009 ; Recorder: STEVE ANDREA CNP; Confirmation: Confirmed ; Classification: Medical ; Code: 250.02 ; Contributor System: [employer] GroupChart ; Last Updated: 07/24/2011 10:45 PAPER MACHINE SUPERVISOR ; Life Cycle Date: 12/05/2010 ; [...] Comments: 09/30/2013 11:47 - ANOOP QUEVEDO R WASH MILL OPERATOR onset unknown Erectile dysfunction* (ICD-9-CM :607.84 ) Name of Problem: Erectile dysfunction* ; Recorder: STEVE ANDREA CNP; Confirmation: Confirmed ; Classification: Medical ; Code: 607.84 ; Contributor System: [employer] GroupChart ; Last Updated: 12/28/2009 9:40 CDT ; Life Cycle Date: 12/28/2009 ; Life Cycle Status: Active ; Responsible Provider: STEVE ANDREA CNP; Vocabulary: ICD-9-CM ; Comments: 09/30/2013 11:46 - IKE QUEVEDOICA R WASH MILL OPERATOR onset unknown Flutter Atrial NOS (ICD-9-CM :427.32 ) Name of Problem: Flutter Atrial NOS ; Recorder: KEVIN KILGORE MD; Confirmation: Confirmed ; Classification: Medical ; Code: 427.32 ; Contributor System: PowerChart ; Last Updated: 07/29/2014 7:02 PAPER MACHINE SUPERVISOR ; Life Cycle Status: Active ; [...] System: PowerChart ; Last Updated: 09/30/2012 15:06 PAPER MACHINE SUPERVISOR ; Life Cycle Date: 09/30/2012 ; [...] Code: 695.89 ; Last Updated: 07/14/2012 14:36 PAPER MACHINE SUPERVISOR ; Life Cycle Status: Active ; [...] System: PowerChart ; Last Updated: 09/05/2010 9:56 PAPER MACHINE SUPERVISOR ; Life Cycle Date: 09/05/2010 ; [...] Vocabulary: ICD-9-CM ; Comments: 09/30/2013 11:ANOOP ISAAC WASH MILL OPERATOR onset unknown Ulcer of skin NOS (ICD-9-CM :707.9 ) Name of Problem: Ulcer of skin NOS ; Recorder: HALEIGH SCHULTZ CNP; Confirmation: Confirmed ; Classification: UPDATE NEEDED ; Code: 707.9 ; Contributor System: PowerChart ; Last Updated: 09/18/2010 8:25 PAPER MACHINE SUPERVISOR ; Life Cycle Date: 09/18/2010 ; Life Cycle Status: Active ; Responsible Provider: HALEIGH SCHULTZ CNP; Vocabulary: ICD-9-CM ; Comments: 09/30/2013 11:ANOOP ISAAC WASH MILL OPERATOR onset unknown Unspecified Adjustment Reaction (ICD-9-CM :309.9 [...] Medical ; Code: 788.31 ; Contributor System: [employer] ; Last Updated: 02/20/2010 8:39 CDT ; Life Cycle Date: 02/20/2010 ; Life Cycle Status: Active ; Responsible Provider: STEVE ANDREA CNP; Vocabulary: ICD-9-CM ; Comments: 09/30/2013 11:46 - ANOOP QUEVEDO WASH MILL OPERATOR onset unknown Diagnoses(Active) Rib/trunk pain-swelling Date: 04/14/2015 ; Diagnosis Type: Reason For Visit ; Confirmation: Complaint of ; Clinical Dx: Rib/trunk pain-swelling ; Classification: Medical ; Clinical Service: Emergency medicine ; Code: PNED ; Probability: 0 ; Diagnosis Code: [id number] Triage Chief Complaint Description : has had pain in ribs on both side that started thursday night after a massage ANA REEVES RN - 04/14/2015 16:15 CDT Mode of Arrival ED : Private vehicle Track : Medical Languages : Palauan Patient Informed of Triage Location : Emergency [...] ERIN DCP GENERIC CODE Tracking Group : [facility] ED Tracking Acuity : 3 -Urgent [...] REEVES RN - 04/14/2015 16:15 CDT Source: [employer] Document Id: [id number] CDT!5 documented in this encounter Miscellaneous Notes Miscellaneous - Ana Reeves, R.N. - 04/14/2015 5:34 PM CDT Valuables/Belongings Valuables/Belongings Entered On: 04/14/2015 17:34 CDT Performed On: 04/14/2015 17:34 CDT by ANA REEVES RN Valuables/Belongings Home Medication Disposition : None brought in with patient ANA REEVES RN - 04/14/2015 17:34 CDT Source: [facility] [employer] Document Id: [id number] CDT!3 Miscellaneous - Conversion, Historical Provider Ser - 04/14/2015 5:28 PM CDT Coding Summary-Paper Based CODING DATE: 04/16/2015 FINAL [place] [facility] STATUS: * Discharged to Home [...] HEREDIA Date Saved: 04/16/2015 09:43 am Source: [employer] Document Id: [id number] Miscellaneous - Ana Reeves, R.N. - 04/14/2015 [...] Control : 6 Lynx Visit Level : 17445 Level 3 Treatments Prior to Arrival : None ANA REEVES RN - 04/14/2015 17:34 CDT Source: [facility] [employer] Document Id: [id number] CDT!18 documented in this encounter Plan of Treatment Not on filedocumented as of this encounter Visit Diagnoses Not on filedocumented in this encounter Additional Health Concerns Assessment Noted Time PHQ-9 Depression Total Score: 18 02/14/2013 9:53 AM CD T documented as of this encounter
--- OUTSIDE RECORDS SUMMARY | 2022-08-12 09:25 | XMS_ITS | Encounter Summary ---
:1960 Author Organization [facility] Address [address] [place] [address] Care Team Providers Name Role Phone Unavailable Primary Care Provider Unavailable Encounter Details Date Type Department Care Team Description 12/25/2014 Hospital Encounter HX [facility] Cintia oCbb M.D. [address] [place] [phone] (Wo rk) Social History Tobacco Use [...] 2014 15:19:35 CDT From: OLIVIA BECERRA V (ID Family Medicine Nurse Bennett) To: CINTIA KILGORE [...] Lvl 9.7 mg/dL (8.6 - 10.0) Source: [facility] POWERCHART Document Id: [id number] Electronically signed by Conversion, [facility] Evp Chief Exploration Officer [id number] at 02/01/2017 4:56 PM CDT Miscellaneous - Conversion, Historical Provider Ser - 12/25/2014 11:59 PM CDT Coding Summary-Paper Based CODING DATE: 12/28/2014 FINAL CA [facility] STATUS: * Discharged to Home or [...] Revised Date Saved: 12/28/2014 10:54 am Source: [facility] [employer] Document Id: [id number] documented in this encounter Plan of Treatment [...] POWERCHART MMOLL HXeGFR (MDRD) >60 >=60 POWERCHART [id number] eGFR >60 >=60 POWERCHART Black/ [id number] Somali Specimen (Source) Anatomical Collection Method Collection Time [...]
--- OUTSIDE RECORDS SUMMARY | 2022-08-12 09:25 | XMS_ITS | Encounter Summary ---
:1960 Author Organization [facility] Address [address] [place] [address] Care Team Providers Name Role Phone Unavailable Primary Care Provider Unavailable Encounter Details Date Type Department Care Team Description 09/15/2015 Hospital Encounter [facility] Cintia Cobb M.D. [address] [place] [phone] (Wo rk) Social History Tobacco Use [...] 180 cm (5' 10.87) 09/15/2015 9:54 AM DOGGER Body Mass Index - - documented in [...] 09/15/2015 10:30 AM Result s for this DOGGER procedure are i n the results section . documented in this encounter Results Lipid Panel (09/15/2015 10:30 AM DOGGER) P athologist Signature Cholesterol, 119 <=199 MGDL [...] at or the on-line test catalog at [employer] for information about how to order these wandy ts or to speak with a genetic counselor. Further interpretation would require clinical information. Total Cholesterol/HDL Ratio 2 PO WERCHART Specimen (Source) Anatomical Collection Method Collection Time Re ceived Time Location / / Volume Laterality Blood 09/15/2015 10:30 AM DOGGER Cintia Copeland M.D. LAB BLOOD ADD-ON Performing Organization Address City/State/ZIP Code Phon e Number POWERCHART documented in this encounter Visit Diagnoses Not on filedocumented in this encounter Additional Health Concerns Assessment Noted Time PHQ-9 Depression Total Score: 18 02/14/2013 9:53 AM CD T documented as of this encounter
--- OUTSIDE RECORDS SUMMARY | 2022-08-12 09:25 | XMS_ITS | Encounter Summary ---
:1960 Author Organization [facility] Address [address] [place] [address] Care Team Providers Name Role Phone Unavailable Primary Care Provider Unavailable Encounter Details Date Type Department Care Team Description 12/25/2014 Hospital Encounter [facility] Cintia lindquist M.D. [address] [place] [phone] (Wo rk) Social History Tobacco Use [...] 04, 2017 08:05:05 CDT From: ANGEL NGUYEN ([place] Family Medicine Nurse Guajardo) To: CINTIA BULLOCK MD; Sent: 05/04/2017 08:05:05 CDT Subject: BP readings Addendum by ANGEL NGUYEN on May 04, 2017 08:04:48 CDT BP access: [employer], select bp tracker hyperlink in the middle of the page, enter patient's access codeof [id number], month 10, year 1959. This will bring you to a snap shot of bp readings. From: MICHAEL GAITAN To: [place] Family Medicine Nurse Guajardo; Sent: 05/02/2017 17:53:29 CDT Subject: *Phone Message Caller is: ( x ) Patient ( ) Mother ( ) Father ( ) Spouse ( ) Daughter ( ) Son ( ) Pharmacy ( ) Other: Physician: Pato Patient MRN #: Reason for Call: BP Readings Message: Patient called in to give the following BP readings: 05/02/17 @ 2pm [facility] - 05/02/17 [facility] 5:15 66/41. Patient states all are normal and would like you to view his readings at [facility] as he has advised to before. Advice/Action: [...] back cell phone number ( ) Source: [facility] POWERCHART Document Id: [id number] Miscellaneous - Rosetta Ramirez L.PPiliN. - 12/25/2014 [...] RAMIREZ LPN - 12/25/2014 13:28 CDT Source: [employer] Document Id: [id number] CDT!9 Miscellaneous - Rosetta Ramirez L.P.N. - [...] RAMIREZ LPN - 12/25/2014 13:19 CDT Source: [employer] Document Id: [id number] CDT!12 documented in this encounter Plan of Treatment Not on filedocumented as of this encounter Visit Diagnoses Not on filedocumented in this encounter Additional Health Concerns Assessment Noted Time PHQ-9 Depression Total Score: 18 02/14/2013 9:53 AM CD T documented as of this encounter
--- OUTSIDE RECORDS SUMMARY | 2022-08-12 09:25 | XMS_ITS | Encounter Summary ---
:1960 Author Organization [facility] Address [address] [place] [address] Care Team Providers Name Role Phone Unavailable Primary Care Provider Unavailable Encounter Details Date Type Department Care Team Description 05/15/2015 Hospital Encounter [facility]X [facility] Kevin Aguirre M.D. [address] [place] [phone] (Wo rk) Social History Tobacco Use [...] HISTORY Patient is . 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 No tobacco or alcohol. SOCIAL HISTORY Date [...] Absolute: 4.64 05/12/15 Lymph Absolute: 1.63 05/12/15 [place] Absolute: 0.58 05/12/15 Eos Absolute: 0.15 05/12/15 [...] Ordered: OV Est Pt Level 4 - 35615 - 25 min 2. Anemia NOS Hemoglobin was rechecked and has gone up a little to 8.4. I think this is reassuring. I encouraged patient to remember his vitamin B12 and we will also recommend starting an iron supplement. Ordered: OV Est Pt Level 4 - 11905 - 25 min 3. Ulcer Gastric Acute NOS Patient is most likely suffering an acute gastric ulcer due to use of Celebrex in the setting of gastric bypass surgery. He has appropriately stopped the Celebrex. We will continue with Prilosec. EGD will hopefully help determine if there is anything further going on. Ordered: OV Est Pt Level 4 - 67868 - 25 min 4. DM2 Patient brings in a record of his blood sugars which have been doing quite well. Generally they arearound 100 in the morning. He is no longer on insulin. Ordered: OV Est Pt Level 4 - 27839 - 25 min 5. Gastric Bypass S/P We will help arrange appointment to follow up with Dr. Hess, Dr. Saez and Hong, his dietitian. Patient's weight loss has been very successful. Ordered: OV Est Pt Level 4 - 27585 - 25 min 6. Hypertension HTN NOS Blood pressure was initially a little high today. Recheck was a little better. We will need to continue to monitor this. Ordered: OV Est Pt Level 4 - 85188 - 25 min Electronically Signed By: KEVIN KILGORE MD On: 05/16/2015 06:54 AM Source: [facility] POWERCHART Document Id: [id number] documented in this encounter Miscellaneous Notes Miscellaneous - Shirlene Abbott R.N. - 06/19/2015 11:05 AM CDT *General Message Document Contains Addenda Addendum by SORIN VARGAS RN on 20 June 2015 13:46:56 CDT Updated Magali. 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 Reminded her of hemoglobin to be [...] working long hours he is currently in [place]. Blood sugars are good, reported many numbers from 85-95. Tailbone is sore because I don't have any meat on it. Did not leave any question or request that could be determined. No phone number. Source: [facility] POWERCHART Document Id: [id number] Miscellaneous - Kevin Cobb M.D. - 05/15/2015 4:04 PM CDT Ambulatory Patient Summary [address] [id number] Visit Information Name: NOEMÍ LUNA [facility] Number: [id number] Current Date: 05/15/2015 16:04:00 Physicians [...] Appointments Date Time Location Provider 05/16/2015 11:00 [facility] Scope Room Jd Bruno MD Attention: [...] if you dont have one. Go to [email or web address] and click on Create Your Account. Then, follow the directions to complete the online form. Youll be asked for your [facility] number which you can find at the top of this document. Your Goals/Additional instructions: Source: [facility] POWERCHART Document Id: [id number] Miscellaneous - Kevin Cobb M.D. - 05/15/2015 4:03 PM CDT Ambulatory Discharge Medication List [address] [id number] Visit Information Name: NOEMÍ LUNA [facility] Number: [id number] Visit Date: 05/15/2015 16:03:58 Attending [...] MD Signed On:15-MAY-2015 16:03:46 Additional Information: Source: [facility] POWERCHART Document Id: [id number] Miscellaneous - Marco Haij L.P.N. - 05/15/2015 3:26 PM CDT Obstructive [...] HAJI LPN - 05/15/2015 15:26 CDT Source: [employer] Document Id: [id number] CDT!12 Miscellaneous - Marco Haji L.P.N. - 05/15/2015 3:13 PM CDT Adult Passenger Representative Intake/History Adult Passenger Representative Intake/History Entered On: 05/15/2015 15:26 CDT Performed [...] Preferred Communication Mode : Verbal Languages : Polish Is Patient Female and 13-50 no hysterectomy : No HAJI, HETDAVID Oakes [facility] - 05/15/2015 15:13 CDT Subjective Pain Symptoms : No HAJIMARCO [facility] - 05/15/2015 15:13 CDT Dependent Habits Tobacco Use/Currently Using : No Tobacco Use/Last 12 months : No Tobacco Use/Advised to Quit : No Exposure to Tobacco Smoke : Care provider denies smoking in home Smoking Status : Never smoker Alcohol Use : No PATELDAVID Oakes [facility] - 05/15/2015 15:13 CDT Caffeine Use Grid Caffeine Use : Current Type : Coffee, Soft drinks Frequency : Weekly Amount : soda- weekly; coffee- 1x/week HAJI KRISTINEDAVID Oakes [facility] - 05/15/2015 15:13 CDT Recreational Drug Use Grid Drug Use : None MARCO HAJI [facility] - 05/15/2015 15:13 CDT Source: [facility] POWERCHART Document Id: [id number] CDT!5 documented in this encounter Plan of [...]
--- OUTSIDE RECORDS SUMMARY | 2022-08-12 09:25 | XMS_ITS | Encounter Summary ---
:1960 Author Organization [facility] Address [address] [place] [address] Care Team Providers Name Role Phone Unavailable Primary Care Provider Unavailable Encounter Details Date Type Department Care Team Description 03/24/2015 [facility] Cintia Cobb M.D. [address] [place] [phone] (Wo rk) Social History Tobacco Use [...] 5.5 % A1C ( - <=5.6) Source: [facility] POWERCHART Document Id: [id number] Electronically signed by Conversion, [facility] Carpenter Assistant [id number] at 02/01/2017 11:35 PM CDT documented in [...]
--- OUTSIDE RECORDS SUMMARY | 2022-08-12 09:25 | XMS_ITS | Encounter Summary ---
:1960 Author Organization [facility] Address [address] [place] [address] Care Team Providers Name Role Phone Unavailable Primary Care Provider Unavailable Encounter Details Date Type Department Care Team Description 12/18/2014 Hospital Encounter [facility] Song Cintia Copeland M.D. [address] [place] [phone] (Wo rk) Social History Tobacco Use [...] Coding Summary-Paper Based CODING DATE: 12/26/2014 FINAL [facility] STATUS: * Discharged to Home or [...] BLISS Date Saved: 12/26/2014 01:48 pm [facility] Document Id: [id number] Miscellaneous - Shawnee Haji, L.P.N. - 12/12/2014 3:09 PM CDT *General Message Document Contains Addenda Addendum by VINEET RAMIREZ LPN on 13 December 2014 14:53:34 CDT mailed note below to pt. Phone does not have voice mail.< Addendum by CINTIA KILGORE MD on 13 December 2014 13:44:56 CDT From: CINTIA KILGORE MD To: [place] Family Medicine Nurse Guajardo; Sent: 12/13/2014 13:44:56 CDT Subject: RE: *General Message Vitamin B was sent to the pharmacy at his last visit. He does not need Vitamin D. THanksCintia From: SHAWNEE HAJI LPN ([facility] Medicine Nurse Guajardo) To: CINTIA KILGORE MD; Sent: 12/12/2014 15:09:50 CDT Subject: *General Message Ed was looking for prescriptions for his B12 and his vitamin D3. His says he doesn't need to take the vitamin D due to his Flinistone vitamins have vitamin D in them? [facility] Document Id: [id number] Electronically signed by Conversion, [facility] Cash Control Specialist [id number] at 02/01/2017 3:36 PM CDT documented in this encounter Plan of Treatment Not on filedocumented as of this encounter Procedures Procedure Name Priority Date/Time Associated Diagnosis Comme nts BASIC METABOLIC Routine 12/18/2014 12:50 PM Resul ts for this PANEL, S/P CDT procedure are i n the results section. documented in this encounter Results (ABNORMAL) BMP (Basic Metabolic Panel) (12/18/2014 12:50 PM CDT) [facility] gist Method Time Signature Anion Gap [...] MMOLL HXeGFR (MDRD) 28 (L) >=60 POWERCHART [id number] eGFR 34 (L) >=60 POWERCHART Black/ [id number] Sammarinese Specimen (Source) Anatomical Collection Method Collection Time [...]
--- OUTSIDE RECORDS SUMMARY | 2022-08-12 09:25 | XMS_ITS | Encounter Summary ---
:1960 Author Organization [facility] Address [address] [place] [address] Care Team Providers Name Role Phone Unavailable Primary Care Provider Unavailable Encounter Details Date Type Department Care Team Description 01/09/[address] [facility] [place] Cintia Aguirre M.D. [address] [place] [phone] (Wo rk) Social History Tobacco Use [...] I would appreciate the guidance of his preventive medicine physician. We will arrange this appointment. 3. Hypertension [...] 09:44 PM Source: [facility] POWERCHART Document Id: [id number] documented in this encounter Miscellaneous Notes Miscellaneous - Cintia Cobb M.D. - 01/09/2015 6:56 PM CDT Ambulatory Patient Summary [address] [place] [id number] Visit Information Name: LAZ LUNA [facility] Number: [id number] Current Date: 01/09/2015 18:56:56 [...] Appointments Date Time Location Provider 01/16/2015 13:15 [facility] Urology Gonzalez MENDEZ, Rayna Posadas Attention: Contact your local Clinic if further appointment detail needed. Your Goals/Additional instructions: Future Appointment: nurse visit BP check 1 week Lab: _ Radiology: _ Need Prior Auth: _ NO Prior Auth: _ Consult: _ Release of MR_ PHI_ Source: [facility] POWERCHART Document Id: [id number] Miscellaneous - Cintia Cobb M.D. - 01/09/2015 6:56 PM CDT Ambulatory Discharge Medication List [address] [place], [place] [id number] Visit Information Name: LAZ LUNA [facility] Number: [id number] Visit Date: 01/09/2015 18:56:55 [...] MD Signed On:09-JAN-2015 18:55:13 Additional Information: Source: [facility] POWERCHART Document Id: [id number] Miscellaneous - Rosetta Ramirez L.P.N. - 01/09/2015 6:15 PM CDT Adult Lab Instructor Intake/History Adult Lab Instructor Intake/History Entered On: 01/09/2015 18:23 CDT Performed [...] Information Given By : Patient Languages : Sami Is Patient Female and 13-50 no hysterectomy [...] RAMIREZ LPN - 01/09/2015 18:15 CDT Source: [employer] Document Id: [id number] CDT!46 documented in this encounter Plan of Treatment Not on filedocumented as of this encounter Visit Diagnoses Not on filedocumented in this encounter Additional Health Concerns Assessment Noted Time PHQ-9 Depression Total Score: 18 02/14/2013 9:53 AM CD T documented as of this encounter
--- OUTSIDE RECORDS SUMMARY | 2022-08-12 09:25 | XMS_ITS | Encounter Summary ---
:1960 Author Organization [facility] Address [address] [place] [address] Care Team Providers Name Role Phone Unavailable Primary Care Provider Unavailable Encounter Details Date Type Department Care Team Description 03/24/2015 Hospital Encounter [facility] Cintia Aguirre M.D. [address] [place] [phone] (Wo rk) Social History Tobacco Use [...] TALI TORRES On: 03/24/2015 10:48 AM Source: [facility] POWERCHART Document Id: [id number] documented in this encounter Miscellaneous Notes Miscellaneous [...] on any further orders Thanks Anoop Source[facility] Document Id: [id number] Electronically signed by Dayami [facility] Cent[facility] Longoria [id number] at 02/01/2017 11:35 PM CDT Miscellwalter - Anoop Mujica LPiliP.NPili - 03/24/2015 [...] MUJICA LPN - 03/24/2015 11:42 CDT Source: [employer] Document Id: [id number] CDT!10 Lulycellaneous - Anoop Mujica L.P.NPili - [...] MUJICA LPN - 03/24/2015 10:27 CDT Source: [employer] Document Id: [id number] CDT!15 documented in this encounter Plan of Treatment Not on filedocumented as of this encounter Visit Diagnoses Not on filedocumented in this encounter Additional Health Concerns Assessment Noted Time PHQ-9 Depression Total Score: 18 02/14/2013 9:53 AM CD T documented as of this encounter
--- OUTSIDE RECORDS SUMMARY | 2022-08-12 09:25 | XMS_ITS | Encounter Summary ---
:1960 Author Organization [facility] Address [address] [place] [address] Care Team Providers Name Role Phone Unavailable Primary Care Provider Unavailable Encounter Details Date Type Department Care Team Description 08/04/2015 Hospital Encounter [facility] Cintia Cobb M.D. [address] [place] [phone] (Wo rk) Social History Tobacco Use [...] 185 cm (6' 0.84) 08/04/2015 10:39 AM ADDRESSER Body Mass Index - - documented in [...] Routine 08/04/2015 10:45 AM Results for this ADDRESSER procedure are i n the results section . documented in this encounter Results (ABNORMAL) Hemoglobin (08/04/2015 10:45 AM ADDRESSER) athologist Signature Hemoglobin 12.4 (L) 13.5 - 17.5 POWERCHART GDL Specimen (Source) Anatomical Collection Method Collection Time Re ceived Time Location / / Volume Laterality Blood 08/04/2015 10:45 AM ADDRESSER Cintia Copeland M.D. LAB BLOOD ADD-ON Performing Organization Address City/State/ZIP Code Phon e Number POWERCHART documented in this encounter Visit Diagnoses Not on filedocumented in this encounter Additional Health Concerns Assessment Noted Time PHQ-9 Depression Total Score: 18 02/14/2013 9:53 AM CD T documented as of this encounter
--- OUTSIDE RECORDS SUMMARY | 2022-08-12 09:25 | XMS_ITS | Encounter Summary ---
:1960 Author Organization [facility] Address [address] [place] [address] Care Team Providers Name Role Phone Unavailable Primary Care Provider Unavailable Encounter Details Date Type Department Care Team Description 12/18/2014 Hospital Encounter H[facility] [place] Cintia Aguirre M.D. [address] [place] [phone] (Wo rk) Social History Tobacco Use [...] will be informing the kidney specialist in [place]. Electronically Signed By: KEYLA PATE LPN On: 12/18/2014 03:17 PM Source: [facility] [employer] Document Id: [id number] documented in this encounter Miscellaneous Notes Miscellaneous [...] 11:23:27 CDT From: SHIRLENE ABBOTT RN To: [place] Family Medicine Nurse Bennett; Sent: 01/03/2015 11:23:27 CDT Subject: 5-5-15 From: SHIRLENE ABBOTT RN To: SHIRLENE ABBOTT RN; Sent: 01/03/2015 11:22:52 CDT Subject: *General Message Pt has appt on January 09. [facility] pharmacy would like updated scripts on anything we will be filling, pt reports different directions on Lisinopril, HCTZ and Amlodipine. Checked Synthesis but not sure who prescribed. Source: [facility] POWERCHART Document Id: [id number] Miscellaneous - Shawnee Haji L.PPiliNPili - 12/18/2014 [...] HAJI LPN - 12/18/2014 11:59 CDT Source: [employer] Document Id: [id number] CDT!16 documented in this encounter Plan of Treatment Not on filedocumented as of this encounter Visit Diagnoses Not on filedocumented in this encounter Additional Health Concerns Assessment Noted Time PHQ-9 Depression Total Score: 18 02/14/2013 9:53 AM CD T documented as of this encounter
--- OUTSIDE RECORDS SUMMARY | 2022-08-12 09:25 | XMS_ITS | Encounter Summary ---
:1960 Author Organization [facility] Address [address] [place] [address] Care Team Providers Name Role Phone Unavailable Primary Care Provider Unavailable Encounter Details Date Type Department Care Team Description 08/04/2015 Hospital Encounter [facility]X [facility] [place] Piero Swann M.D. [address] [place] [phone] (Wo rk) Social History Tobacco Use Types Packs/Day Years Used Date Smoking Tobacco: Never Assessed Sex Assigned at Date Recorded Not on file documented as of this encounter Last Filed Vital Signs Vital Sign Reading Time Taken Comments Blood Pressure 115/60 08/04/2015 11:59 AM CHLORINATOR Pulse 42 08/04/2015 11:59 AM CHLORINATOR Temperature - - Respiratory Rate 16 08/04/2015 11:59 AM CHLORINATOR Oxygen Saturation - - Inhaled Oxygen Concentration - - Weight - - Height 185 cm (6' 0.84) 08/04/2015 11:59 AM CHLORINATOR Body Mass Index - - documented in [...] CST *General Message From: JUDITH PATE LPN ([place] [facility] Nurse [place]) To: JUDITH PATE LPN; Sent: 08/21/2015 09:44:40 CHLORINATOR Subject: *General Message pt called and left message on voicemail stating he is sick, coughing, sore throat that hurts so bad. x3days per pt request to leave a message left a message and informed pt that he will need to make and appt or call and speak to an Expert RN nurse line. Source: [facility] POWERCHART Document Id: [id number] Miscellaneous - Shirlene Abbott R.N. - 08/13/2015 8:38 AM CST COLIN Document Contains Addenda Addendum by VINEET RAMIREZ LPN on 16 August 2015 07:24:01 CHLORINATOR From: VINEET RAMIREZ LPN To: SHIRLENE ABBOTT RN; Cc: KEVIN KILGORE MD; Sent: 08/16/2015 07:24:01 CHLORINATOR Subject: FW: COLIN pt left detailed message that trell Donaldson called and talked to his and told her about lab workthat was done. From part of his message it was Sorin who called and gave her the info below. He states that it is best to call her cell # of [phone] and leave a message as she can't [...] RAMIREZ LPN on 16 August 2015 07:16:50 CHLORINATOR From: VINEET RAMIREZ LPN To: VINEET RAMIREZ LPN; Sent: 08/16/2015 07:16:50 CHLORINATOR Subject: FW: FYI Addendum by SORIN VARGAS RN on 15 August 2015 09:21:07 CHLORINATOR updated with message below, verbalized understanding and able to repeat back. Addendum by KEVIN KILGORE MD on 15 August 2015 07:59:43 CHLORINATOR From: KEVIN KILGORE MD To: [place] [facility] Nurse [place]; Sent: 08/15/2015 07:59:43 CHLORINATOR Subject: call patient Please let patient know that I have reviewed the blood sugars he dropped off. They overall look good. I would still prefer that he check his blood sugars at least 2 times per week. His A1c did go up a little to 6.0%. In regards to his weight fluctuations, I think he needs to follow up with the dietitian in [place] as we had discussed at his last [...] To: KEVIN KILGORE MD; Sent: 08/13/2015 08:38:46 CHLORINATOR Subject: FYI Pt called to ask if he could stop taking his B12 shots, says he hasn't done them. Advised again as [facility] in [facility] that he still needs to take [...] would not be answering his phone. Source: [employer] Document Id: [id number] Miscellaneous - Shirlene Abbott R.N. - 08/09/2015 3:45 PM CST *General Message From: SHIRLENE ABBOTT RN Sent: 08/09/2015 15:45:14 CHLORINATOR Subject: *General Message Pt called for A1C, result given Source: [employer] Document Id: [id number] Electronically signed by Conversion, [facility] Pre Press Proofer [id number] at 02/02/2017 6:21 AM CDT Lulycellwalter - Anoop Mujica L.PAugustine - 08/04/2015 12:06 PM CST *General Message From: ANOOP MUJICA LPN ([place] [facility] Nurse [place]) To: KEVIN KILGORE MD; Sent: 08/04/2015 12:06:33 CHLORINATOR Subject: *General Message Patient came in on [...] on any further orders Thanks Anoop Source: [employer] Document Id: [id number] Electronically signed by Conversion, [facility] Pre [employer] Proofer [id number] at 02/02/2017 6:21 AM CDT Osbaldo - Anoop Mujica L.PPiliNPili - 08/04/2015 11:59 AM CST Ambulatory Vitals Height Weight Ambulatory Vitals Height Weight Entered On: 08/04/2015 12:03 CHLORINATOR Performed On: 08/04/2015 11:59 CHLORINATOR by ANOOP MUJICA LPN Vitals/Ht/Wt Peripheral Pulse [...] inch(es)) ANOOP MUJICA LPN - 08/04/2015 11:59 CHLORINATOR Source: [facility] POWERCHART Document Id: [id number] CHLORINATOR!13 RINATOR documented in this encounter Plan of Treatment Not on filedocumented as of this encounter Procedures Procedure Name Priority Date/Time Associated Diagnosis Comme nts HEMOGLOBIN A1C, B Routine 08/04/2015 10:45 AM Res ults for this CHLORINATOR procedure are i n the results section. documented in this encounter Results (ABNORMAL) Hemoglobin A1c (08/04/2015 10:45 AM CHLORINATOR) P athologist Signature Hemoglobin A1c, 6.0 (H) <=5.6 A1C POWERCHART B Specimen (Source) Anatomical Collection Method Collection Time Re ceived Time Location / / Volume Laterality Blood 08/04/2015 10:45 AM CHLORINATOR Kevin Copeland M.D. LAB BLOOD ADD-ON Performing Organization Address City/State/ZIP Code Phon e Number POWERCHART documented in this encounter Visit Diagnoses Not on filedocumented in this encounter Additional Health Concerns Assessment Noted Time PHQ-9 Depression Total Score: 18 02/14/2013 9:53 AM CD T documented as of this encounter
--- OUTSIDE RECORDS SUMMARY | 2022-08-12 09:26 | XMS_ITS | Encounter Summary ---
:1960 Author Organization [facility] Address [address] [place] [address] Care Team Providers Name Role Phone Unavailable Primary Care Provider Unavailable Encounter Details Date Type Department Care Team Description 08/25/2014 Hospital Encounter [facility] Cintia Cobb M.D. [address] [place] [phone] (Wo rk) Social History Tobacco Use Types [...] 185 cm (6' 0.84) 08/25/2014 9:56 AM CAD DESIGN ENGINEER Body Mass Index - - documented in this encounter Miscellaneous Notes Miscellaneous - Cintia Cobb M.D. - 09/04/2014 1:17 PM CAD DESIGN ENGINEER Normal Results Letter 04 September 2014 LAZ LUNA [address] [place] [address] [address] [facility] [phone] Dear LAZ LUNA, I am pleased to [...] Chol/HDL Ratio 4 08/25/2014 Sincerely, CINTIA KILGORE [address] [address] Electronic Signature Electronically Signed By: CINTIA KILGORE MD On: 04 September 2014 This document has images extracted. Source: [facility] POWERCHART Document Id: [id number] Electronically signed by Conversion, [facility] Accounts Receivable Representative [id number] at 02/03/2017 4:34 PM CDT documented in this encounter Plan of Treatment Not on filedocumented as of this encounter Procedures Procedure Name Priority Date/Time Associated Diagnosis Comme nts LIPID PANEL, S Routine 08/25/2014 10:17 AM Result s for this CAD DESIGN ENGINEER procedure are i n the results section . documented in this encounter Results (ABNORMAL) Lipid Panel (08/25/2014 10:17 AM CAD DESIGN ENGINEER) P athologist Signature Cholesterol, 122 0 - [...] / Volume Laterality Blood 08/25/2014 10:17 AM CAD DESIGN ENGINEER Cintia Copeland M.D. LAB BLOOD ADD-ON Performing Organization Address City/State/ZIP Code Phon e Number POWERCHART documented in this encounter Visit Diagnoses Not on filedocumented in this encounter Additional Health Concerns Assessment Noted Time PHQ-9 Depression Total Score: 18 02/14/2013 9:53 AM CD T documented as of this encounter
--- OUTSIDE RECORDS SUMMARY | 2022-08-12 09:26 | XMS_ITS | Encounter Summary ---
:1960 Author Organization [facility] Address [address] [place] [address] Care Team Providers Name Role Phone Unavailable Primary Care Provider Unavailable Encounter Details Date Type Department Care Team Description 11/20/2014 Hospital Encounter HX [facility] [place] Cintia Aguirre M.D. [address] [place] [phone] (Wo rk) Social History Tobacco Use [...] and knee. Vascular calcification. Kelsey Peterson MD. [id number] 20-Nov-2014 11:57 [1] Report 20-Nov-2014 11:54:00 Exam: [...] Ordered: OV Est Pt Level 4 - 69417 - 25 min 2. Pain Hip R Evidence of arthritis on xray. Again hopefully, rest and weight loss will improve his discomfort. Tylenol for pain. Ordered: OV Est Pt Level 4 - 27830 - 25 min 3. Insufficiency Renal NOS Patient's last creatinine was up a little more at 1.43. I did have the opportunity to speak with his surgical team in [place]. Certainly his diabetes and hypertension could be damaging his kidneys and the diuretics are exacerbating that. I am hoping that as he loses weight, we will be able to decrease some of him medications and hopefully see some improvement. Ordered: OV Est Pt Level 4 - 76438 - 25 min 4. Obesity Medically Complicated [...] Ordered: OV Est Pt Level 4 - 85360 - 25 min FOOTNOTES [1]XR Knee Right 2 or less views; CLARKE SOLIZ 11/20/2014 11:52 CDT [2]XR Hip Right 2 or more views; CLARKE SOLIZ 11/20/2014 11:51 CDT Electronically Signed By: CINTIA KILGORE MD On: 11/21/2014 07:08 AM Source: [employer] Document Id: [id number] documented in this encounter Miscellaneous Notes Miscellaneous [...] LPN, RT - 11/20/2014 12:06 CDT Source: [employer] Document Id: [id number] CDT!8 Miscellaneous - Cintia Cobb M.D. - 11/20/2014 11:18 AM CDT Ambulatory Patient Summary [address] [id number] Visit Information Name: LAZ LUNA [facility] Number: [id number] Current Date: 11/20/2014 11:18:39 [...] appointment detail needed. Your Goals/Additional instructions: Source: [employer] POWERCHART Document Id: [id number] Miscellaneous - Cintia Cobb M.D. - 11/20/2014 11:18 AM CDT Ambulatory Discharge Medication List [address] [id number] Visit Information Name: LAZ LUNA [facility] Number: [id number] Visit Date: 11/20/2014 11:18:37 [...] Signed By: Signed On: Additional Information: Source: [facility] POWERCHART Document Id: [id number] Miscellaneous - Anne Marie Tuttle L.P.N. - 11/20/2014 10:51 AM CDT Adult Manager Night Intake/History Adult Manager Night Intake/History Entered On: 11/20/2014 10:53 CDT Performed [...] Preferred Communication Mode : Verbal Languages : Bahamian Is Patient Female and 13-50 no hysterectomy [...] LPN, RT - 11/20/2014 10:51 CDT Source: [employer] Document Id: [id number] CDT!53 documented in this encounter Plan of Treatment Not on filedocumented as of this encounter Visit Diagnoses Not on filedocumented in this encounter Additional Health Concerns Assessment Noted Time PHQ-9 Depression Total Score: 18 02/14/2013 9:53 AM CD T documented as of this encounter
--- OUTSIDE RECORDS SUMMARY | 2022-08-12 09:26 | XMS_ITS | Encounter Summary ---
:1960 Author Organization [facility] Address [address] [place] [address] Care Team Providers Name Role Phone Unavailable Primary Care Provider Unavailable Encounter Details Date Type Department Care Team Description 10/03/2014 Hospital Encounter H[facility] Cintia Cobb M.D. [address] [place] [phone] (Wo rk) Social History Tobacco Use [...] 185 cm (6' 0.84) 10/03/2014 7:52 PM DICER OPERATOR Body Mass Index - - documented in this encounter Miscellaneous Notes Miscellaneous - Cintia Cobb M.D. - 10/06/2014 2:30 PM DICER OPERATOR lab results From: CINTIA KILGORE MD To: CINTIA KILGORE MD; Sent: 10/06/2014 14:30:36 DICER OPERATOR Subject: lab results Spoke with patient re: lab results. A1c looks very good at 7.2. Kidney function is still elevated at1.34, but has not significantly changed. He is also spilling extra protein into his urine. Discussedthat in the future, we will need to have him see a nephrology, but first we will continue to pursue the gastric bypass vs lap band procedure. Source: [facility] POWERCHART Document Id: [id number] Electronically signed by Conversion, [facility] Adoption Agent [id number] at 02/01/2017 2:05 PM CDT Miscellaneous - Cintia Cobb M.D. - 10/06/2014 2:26 PM DICER OPERATOR F/U on referral Document Contains Addenda Addendum by CINTIA KILGORE MD on 09 October 2014 13:42:37 DICER OPERATOR From: CINTIA KILGORE MD To: NICHELLE NATHAN; Sent: 10/09/2014 13:42:37 DICER OPERATOR Subject: RE: F/U on referral Thanks. [place]! Addendum by NICHELLE NATHAN on 09 October 2014 13:17:36 DICER OPERATOR From: NICHELLE NATHAN To: CINTIA KILGORE MD; Sent: 10/09/2014 13:17:36 DICER OPERATOR Subject: RE: F/U on referral [facility] Addendum by NICHELLE NATHAN on 09 October 2014 08:01:25 DICER OPERATOR From: NICHELLE NATHAN To: CINTIA KILGORE MD; Sent: 10/09/2014 08:01:25 DICER OPERATOR Subject: RE: F/U on referral I did attempt to call him, no answer again. It doesn't appear he has VM, so we are not able to leavehim a message either. Addendum by CINTIA KILGORE MD on 06 October 2014 20:29:14 DICER OPERATOR From: CINTIA KILGORE MD To: NICHELLE NATHAN; Sent: 10/06/2014 20:29:14 DICER OPERATOR Subject: RE: F/U on referral Was patient updated with this info? Cintia Segura Addendum by NICHELLE NATHAN on 06 October 2014 15:52:27 DICER OPERATOR From: NICHELLE NATHAN To: NICHELLE NATHAN; Sent: 10/06/2014 15:52:27 DICER OPERATOR Subject: FW: F/U on referral Cintia from [facility], called back to report that she was not successful in reaching patient. She asked that I note that they did attempt to call and if he wishes to call them directly he can do so [phone]. Addendum by NICHELLE NATHAN on 06 October 2014 15:29:30 DICER OPERATOR From: NICHELLE NATHAN To: CINTIA KILGORE MD; Sent: 10/06/2014 15:29:30 DICER OPERATOR Subject: RE: F/U on referral I contacted [...] MD To: NICHELLE NATHAN; Sent: 10/06/2014 14:26:32 DICER OPERATOR Subject: F/U on referral Patient has not yet heard [facility]: gastric banding consult appt. Can you look into this? Thanks, Cintia [facility] Document Id: [id number] Electronically signed by Conversion, [facility] Adoption Agent [id number] at 02/01/2017 2:05 PM CDT Miscellaneous - Conversion, Historical Provider Ser - 10/03/2014 11:59 PM DICER OPERATOR Coding Summary-Paper Based CODING DATE: 10/09/[address] [place] [facility] STATUS: * Discharged to Home or [...] BLISS Date Saved: 10/09/2014 12:51 pm Source[facility] Document Id: [id number] documented in this encounter Plan of Treatment Not on filedocumented as of this encounter Procedures Procedure Name Priority Date/Time Associated Comments Diagnosis ALBUMIN, RANDOM, U Routine 10/03/2014 5:00 PM Res ults for this DICER OPERATOR procedure are i n the results section. HEMOGLOBIN A1C, B Routine 10/03/2014 5:00 PM Resu lts for this DICER OPERATOR procedure are i n the results section. BASIC METABOLIC Routine 10/03/2014 5:00 PM Result s for this PANEL, S/P DICER OPERATOR procedure are i n the results section. documented in this encounter Results (ABNORMAL) Microalbumin, Random, Urine (10/03/2014 5:00 PM DICER OPERATOR) [facility] Time Signature HXU Albumin % 1566.4 (H) 12.0 - POWERCHART 30.0 MGL Creatinine, 91.9 30.0 - POWERCHART Random, U 125.0 MGDL Albumin/Creati 1704 (H) 0 - 25 POWERCHART nine Ratio MGGM Specimen (Source) Anatomical Collection Method Collection Time Re ceived Time Location / / Volume Laterality Urine 10/03/2014 5:00 PM DICER OPERATOR Cintia Copeland M.D. LAB URINE ORDERABLES Performing Organization Address City/State/ZIP Code Phon e Number POWERCHART (ABNORMAL) Hemoglobin A1c (10/03/2014 5:00 PM DICER OPERATOR) P athologist Signature Hemoglobin A1c, 7.2 (H) <=5.6 A1C POWERCHART B Specimen (Source) Anatomical Collection Method Collection Time Re ceived Time Location / / Volume Laterality Blood 10/03/2014 5:00 PM DICER OPERATOR Cintia Copeland M.D. LAB BLOOD ADD-ON Performing Organization Address City/[facility] Phon e Number POWERCHART (ABNORMAL) BMP (Basic Metabolic Panel) (10/03/2014 5:00 PM DICER OPERATOR) Analysis Performed At Patho logist Time [...] MMOLL HXeGFR (MDRD) 55 (L) >=60 POWERCHART [id number] eGFR >60 >=60 POWERCHART Black/ [id number] Guinean Specimen (Source) Anatomical Collection Method Collection Time Re ceived Time Location / / Volume Laterality Blood 10/03/2014 5:00 PM DICER OPERATOR Cintia Copeland M.D. LAB BLOOD ADD-ON Performing Organization Address City/State/ZIP Code Phon e Number POWERCHART documented in this encounter Visit Diagnoses Not on filedocumented in this encounter Additional Health Concerns Assessment Noted Time PHQ-9 Depression Total Score: 18 02/14/2013 9:53 AM CD T documented as of this encounter
--- OUTSIDE RECORDS SUMMARY | 2022-08-12 09:26 | XMS_ITS | Encounter Summary ---
:1960 Author Organization [facility] Address [address] [place] [address] Care Team Providers Name Role Phone Unavailable Primary Care Provider Unavailable Encounter Details Date Type Department Care Team Description 12/08/2014 Hospital Encounter HX [facility] [place] Kevin Aguirre M.D. [address] [place] [phone] (Wo rk) Social History Tobacco Use [...] Ordered: OV Est Pt Level 4 - 42115 - 25 min 2. DM2 Patient off of a couple medications. Blood sugars are a little high, but with anticipated weight loss, I do not want to be too aggressive with increasing his insulin. Goal is ultimately to get off of insulin and perhaps all diabetic meds altogether. Ordered: OV Est Pt Level 4 - 31005 - 25 min 3. Insufficiency Renal NOS Creatinine up a little. Was 1.1 on discharge. Some concern for dehydration. Will decrease lisinopril to 20mg daily and recheck. Ordered: OV Est Pt Level 4 - 37463 - 25 min 4. Hypertension HTN NOS Blood pressure is very good today. We are going to cut back on the lisinopril. Lasix has already been stopped. Ordered: OV Est Pt Level 4 - 94318 - 25 min 5. Dysfunction Erectile (ED) NOS Patient would like to be referred to urology to further discuss. This will be placed. Electronically Signed By: KEVIN KILGORE MD On: 12/10/2014 07:57 PM Source: [facility] POWERCHART Document Id: [id number] documented in this encounter Miscellaneous Notes Miscellaneous - Shirlene Dominguez R.N. - 12/11/2014 2:31 PM CDT vit D From: SHIRLENE DOMINGUEZ RN Sent: 12/11/2014 14:31:34 CDT Subject: vit D Pharmacy called about pt wanting Vit D. Provider doesn't recall discussing this with pt but if he chooses, he could take OTC 1000IU Vit D daily. Pharmacy will let him know. Source: [facility] POWERCHART Document Id: [id number] Miscellaneous - Kevin Cobb M.D. - 12/10/2014 [...] [place] [facility] Type of Referral/Department: Urology- female Specific Clinical Question: Erectile dysfunction Pertinent History: _ Best Phone Number: _ Appointment Days to Avoid: Best Time of day: Date/Time of appointment made: Sign off: 3 Source: [facility] POWERCHART Document Id: [id number] Miscellaneous - Kevin Cobb M.D. - 12/10/2014 7:58 PM CDT Lab results Document Contains Addenda Addendum by JUDITH PATE LPN on 11 December 2014 13:24:58 CDT pt and his notified. Judith Addendum by JESSIKA TORRES on 11 December 2014 09:03:38 CDT no answer. From: KEVIN KILGORE MD To: [place] Family [facility] Nurse Bennett; Sent: 12/10/2014 19:58:24 [...] 1-2 weeks. Order will be placed. Source: [facility] [employer] Document Id: [id number] Miscellaneous - Shirlene Dominguez R.N. - 12/08/2014 3:32 PM CDT B12 Document Contains Addenda Addendum by SORIN VARGAS RN on 11 December 2014 09:04:15 CDT Submitted: Order:Rx Syringes Supply MISC Once 3 mg syringes with 5/8 25 gauge needle. Qty: 12 each Refills: 0 Substitutions Allowed Route To Pharmacy - [id number] Signed by SORIN VARGAS RN From: SHIRLENE DOMINGUEZ RN To: SHIRLENE DOMINGUEZ RN; Sent: 12/08/2014 15:32:47 CDT Subject: B12 Tried to call pt, need to ask if he is going to do B12 shots himself, if so, needs syringes - per pharmacy 3ml syringe with 5/8 in needle 25 guage, needs 12. No answering machine, unable to leave message. Source: [facility] [employer] Document Id: [id number] Miscellaneous - Kevin Cobb M.D. - 12/08/2014 1:13 PM CDT Ambulatory Patient Summary [address] [place] [phone] Visit Information Name: NOEMÍ LUNA [facility] Number: [id number] Current Date: 12/08/2014 13:13:16 [...] a month vitamin B12 deficiency Routed to [address] [address] docusate-senna (Senna Plus) 1 Tablet(s), [...] Consult: _ Release of MR_ PHI_ Source: [facility] POWERCHART Document Id: [id number] Miscellaneous - Kevin Cobb M.D. - 12/08/2014 1:13 PM CDT Ambulatory Discharge Medication List [address] [id number] Visit Information Name: CARLYLE NOEMÍ Fernandez [facility] Number: [id number] Visit Date: 12/08/2014 13:13:15 [...] a month vitamin B12 deficiency Routed to [address] [address] docusate-senna (Senna Plus) 1 Tablet(s), [...] MD Signed On:08-DEC-2014 13:12:26 Additional Information: Source: [facility] POWERCHART Document Id: [id number] Miscellaneous - Marco Dueñas LPiliPPiliN. - 12/08/2014 11:56 AM CDT Adult Pay Station Collector Intake/History Adult Pay Station Collector Intake/History Entered On: 12/08/2014 12:02 CDT Performed [...] Preferred Communication Mode : Verbal Languages : Solomon Islander Is Patient Female and 13-50 no hysterectomy [...] CDT Alcohol Use : No MARCO DUEÑAS [facility] - 12/08/2014 11:56 CDT Caffeine Use Grid Caffeine Use : Current Type : Coffee, Soft drinks Frequency : Weekly Amount : soda- weekly; coffee- 1x/week MARCO DUEÑAS [facility] - 12/08/2014 11:56 CDT Recreational Drug Use Grid Drug Use : None MARCO DUEÑAS [facility] - 12/08/2014 11:56 CDT ID Screen Drug Resistant Organism : No Travel Within Last 21 Days : No Contact with someone with Ebola : No MARCO DUEÑAS [facility] - 12/08/2014 11:56 CDT Source: [facility] [employer] Document Id: [id number] CDT!51 documented in this encounter Plan of Treatment Not on filedocumented as of this encounter Procedures Procedure Name Priority Date/Time Associated Diagnosis Comme nts BASIC METABOLIC Routine 12/08/2014 1:10 PM Result s for this PANEL, S/P CDT procedure are i n the results section. documented in this encounter Results (ABNORMAL) BMP (Basic Metabolic Panel) (12/08/2014 1:10 PM CDT) [facility] gist Method Time Signature Anion [...] MMOLL HXeGFR (MDRD) 43 (L) >=60 POWERCHART [id number] eGFR 52 (L) >=60 POWERCHART Black/ [id number] Finnish Specimen (Source) Anatomical Collection Method Collection Time [...]
--- OUTSIDE RECORDS SUMMARY | 2022-08-12 09:26 | XMS_ITS | Encounter Summary ---
:1960 Author Organization [facility] Address [address] [place] [address] Care Team Providers Name Role Phone Unavailable Primary Care Provider Unavailable Encounter Details Date Type Department Care Team Description 11/04/2014 Hospital Encounter [facility]X [facility] Cintia Cobb M.D. [address] [place] [phone] (Wo rk) Social History Tobacco Use [...] 185 cm (6' 0.84) 11/04/2014 1:27 PM REPAIR SERVICE DISPATCHER Body Mass Index - - documented in this encounter Miscellaneous Notes Miscellaneous - Cintia Cobb M.D. - 11/17/2014 3:00 PM CDT Normal Results Letter 17 November 2014 ED JEREMY [address] [place] [address] [address] [facility] [id number] Dear LAZ LUNA, Your recent creatinine was [...] >60 10/03/2014 >=60 - Sincerely, CINTIA KILGORE [address] [address] Electronic Signature Electronically Signed By: CINTIA KILGORE MD On: 17 November 2014 This document has images extracted. Source: [employer] Document Id: [id number] Miscellaneous - Conversion, Historical Provider Ser - 11/04/2014 11:59 PM REPAIR SERVICE DISPATCHER Coding Summary-Paper Based CODING DATE: 11/08/2014 FINAL [facility] STATUS: * Discharged to Home [...] BLISS Date Saved: 11/08/2014 02:17 pm Source: [employer] Document Id: [id number] documented in this encounter Plan of Treatment Not on filedocumented as of this encounter Procedures Procedure Name Priority Date/Time Associated Comments Diagnosis CREATININE WITH Routine 11/04/2014 1:40 PM Result s for this EGFR, S/P REPAIR SERVICE DISPATCHER procedure are i n the results section. documented in this encounter Results (ABNORMAL) Creatinine with eGFR (11/04/2014 1:40 PM REPAIR SERVICE DISPATCHER) [facility] Time Signature Creatinine 1.43 (H) 0.60 - POWERCHART 1.30 MGDL HXeGFR (MDRD) 51 (L) >=60 POWERCHART [id number] eGFR >60 >=60 POWERCHART Black/ [id number] Italian Specimen (Source) Anatomical Collection Method Collection Time Re ceived Time Location / / Volume Laterality Blood 11/04/2014 1:40 PM REPAIR SERVICE DISPATCHER Cintia Copeland M.D. LAB BLOOD ADD-ON Performing Organization Address City/State/ZIP Code Phon e Number POWERCHART documented in this encounter Visit Diagnoses Not on filedocumented in this encounter Additional Health Concerns Assessment Noted Time PHQ-9 Depression Total Score: 18 02/14/2013 9:53 AM CD T documented as of this encounter
--- OUTSIDE RECORDS SUMMARY | 2022-08-12 09:26 | XMS_ITS | Encounter Summary ---
:1960 Author Organization [facility] Address [address] [place] [address] Care Team Providers Name Role Phone Unavailable [...]
--- OUTSIDE RECORDS SUMMARY | 2022-08-12 09:26 | XMS_ITS | Encounter Summary ---
:1960 Author Organization [facility] Address [address] [place] [address] Care Team Providers Name Role Phone Unavailable Primary Care Provider Unavailable Encounter Details Date Type Department Care Team Description 09/21/2014 Hospital Encounter HX [facility] [place] Cintia Aguirre M.D. [address] [place] [phone] (Wo rk) Social History Tobacco Use Types Packs/Day Years Used Date Smoking Tobacco: Never Assessed Sex Assigned at Date Recorded Not on file documented as of this encounter Last Filed Vital Signs Vital Sign Reading Time Taken Comments Blood Pressure 149/70 09/21/2014 7:07 PM WARP DYEING VAT TENDER Pulse 64 09/21/2014 6:09 PM WARP DYEING VAT TENDER Temperature - - Respiratory Rate - - Oxygen Saturation - - Inhaled Oxygen Concentration - - Weight 157 kg (345 lb 0.3 oz) 09/21/2014 6:09 PM WARP DYEING VAT TENDER Height 185 cm (6' 0.84) 09/21/2014 7:07 PM WARP DYEING VAT TENDER Body Mass Index 45.73 09/21/2014 6:09 PM WARP DYEING VAT TENDER documented in this encounter Progress Notes Cintia Cobb M.D. - 09/21/2014 6:03 PM CST [id number] CHIEF COMPLAINT/REASON FOR VISIT Follow up chronic problems. HISTORY OF PRESENT ILLNESS Ed is a 54-year-old male who presents today to follow up on chronic problems. He also has questions about the Lap-Band. He is set up for appointments with Bariatric Surgery in [place] againthe beginning of October but he reports [...] about 1 week. We will also get ghkkxfriqj-je-yzqsvxiqkx ratio. The blood sugars he gives are [...] have an open MRI up in the [facility]. He will thinkabout what he would [...] bariatric surgery which was previously planned in [place]. He is going to keep his appointment in [place] at this time. 6. Hypertension. Patient's blood [...] KILGORE MD On: 10/02/2014 02:41 PM Source: [facility] MHSDOLBEYNONRADSYS Document Id: [id number] DYEING VAT TENDER documented in this encounter Miscellaneous Notes Miscellaneous - Anne Marie Tuttle L.P.N. - 09/21/2014 7:07 PM CST Ambulatory Vitals Height Weight Ambulatory Vitals Height Weight Entered On: 09/21/2014 19:08 WARP DYEING VAT TENDER Performed On: 09/21/2014 19:07 WARP DYEING VAT TENDER by ANNE MARIE TUTTLE LPN, RT Vitals/Ht/Wt Systolic Blood Pressure : 149 mmHg (HI) Diastolic Blood Pressure : 70 mmHg NIBP Mean : 96 mmHg BP Location : Left upper extremity Blood Pressure Cuff Size : Large Height : 185 cm(Converted to: 6 ft 1 inch(es), 73 inch(es)) ANNE MARIE TUTTLE LPN, RT - 09/21/2014 19:07 WARP DYEING VAT TENDER Source: [employer] POWERCHART Document Id: [id number] WARP DYEING VAT TENDER!8 DYEING VAT TENDER Miscellaneous - Cintia Cobb M.D. - 09/21/2014 6:52 PM WARP DYEING VAT TENDER Ambulatory Patient Summary [address] [id number] Visit Information Name: LAZ LUNA [facility] Number: [id number] Current Date: 09/21/2014 18:52:50 [...] Consult: _ Release of MR_ PHI_ Source: [facility] POWERCHART Document Id: [id number] DYEING VAT TENDER Miscellaneous - Cintia Cobb M.D. - 09/21/2014 6:52 PM WARP DYEING VAT TENDER Ambulatory Discharge Medication List [address] [id number] Visit Information Name: LAZ LUNA [facility] Number: [id number] Visit Date: 09/21/2014 18:52:48 [...] MD Signed On:21-SEP-2014 18:51:42 Additional Information: Source: [facility] POWERCHART Document Id: [id number] DYEING VAT TENDER Miscellaneous - Anne Marie Tuttle L.PPiliN. - 09/21/2014 6:21 PM CST Quality Measures Quality Measures Entered On: 09/21/2014 18:23 WARP DYEING VAT TENDER Performed On: 09/21/2014 18:21 WARP DYEING VAT TENDER by ANNE MARIE TUTTLE LPN, Diabetes Date of Last Eye Exam : 09/12/2014 WARP DYEING VAT TENDER ANNE MARIE TUTTLE LPN, RT - 09/21/2014 18:21 WARP DYEING VAT TENDER Source: [facility] POWERCHART Document Id: [id number] WARP DYEING VAT TENDER!3 DYEING VAT TENDER Miscellaneous - Anne Marie Tuttle L.PPiliN. - 09/21/2014 6:09 PM CST Adult Center Machine Set Up Operator Intake/History Adult Center Machine Set Up Operator Intake/History Entered On: 09/21/2014 18:16 WARP DYEING VAT TENDER Performed On: 09/21/2014 18:09 WARP DYEING VAT TENDER by ANNE MARIE TUTTLE LPN, RT Intake [...] MARIE TUTTLE LPN, RT - 09/21/2014 18:09 WARP DYEING VAT TENDER General Info Information Given By : Patient Preferred Communication Mode : Verbal Languages : Khmer Is Patient Female and 13-50 no hysterectomy : No ANNE MARIE TUTTLE LPN, RT - 09/21/2014 18:09 WARP DYEING VAT TENDER Subjective Pain Symptoms : No ANNE MARIE TUTTLE LPN, RT - 09/21/2014 18:09 WARP DYEING VAT TENDER Dependent Habits Tobacco Use/Currently Using : No Smoking Status : Never smoker ANNE MARIE TUTTLE LPN, RT - 09/21/2014 18:09 WARP DYEING VAT TENDER Tobacco Use Grid Last Use : never ANNE MARIE TUTTLE LPN, RT - 09/21/2014 18:09 WARP DYEING VAT TENDER Caffeine Use Grid Caffeine Use : Current Type : Coffee, Soft drinks Frequency : Weekly Amount : soda- weekly; coffee- 1x/week ANNE MARIE TUTTLE LPN, RT - 09/21/2014 18:09 WARP DYEING VAT TENDER Recreational Drug Use Grid Drug Use : None ANNE MARIE TUTTLE LPN, RT - 09/21/2014 18:09 WARP DYEING VAT TENDER ID Screen Drug Resistant Organism : No Travel Within Last 21 Days : No ANNE MARIE TUTTLE LPN, RT - 09/21/2014 18:09 WARP DYEING VAT TENDER Source: [employer] Document Id: [id number] WARP DYEING VAT TENDER!41 DYEING VAT TENDER documented in this encounter Plan of Treatment Not on filedocumented as of this encounter Visit Diagnoses Not on filedocumented in this encounter Additional Health Concerns Assessment Noted Time PHQ-9 Depression Total Score: 18 02/14/2013 9:53 AM CD T documented as of this encounter
--- OUTSIDE RECORDS SUMMARY | 2022-08-12 09:26 | XMS_ITS | Encounter Summary ---
:1960 Author Organization [facility] Address [address] [place] [address] Care Team Providers Name Role Phone Unavailable [...] Results Glucose, POCT (11/27/2014 11:59 AM CDT) [facility] Method Time Signature Last Intake 2-3 hours [facility] LABORATORIES [facility] Glucose, 137 70 - 140 [facility] POCT, B MG/DL LABORATORIES - [facility] Sample Site, Capillary [facility] Blood Gas, LABORATORIES - POCT [facility] Specimen Anatomical Collection Method Collection Time Receive d Time (Source) Location / / Volume Laterality 11/27/2014 11:59 11/27/2014 AM CDT 11:59 AM CDT Historical Provider LAB POCT ORDERABLES-MANUAL Performing Organization Address City/State/ZIP Code Phon e Number [facility]IES - [address] [place], [place] [address] [facility] Glucose, POCT (11/27/2014 6:26 AM CDT) [facility] Method Time Signature Last Intake > 4 hours [facility] Glucose, 135 70 - 140 [facility] POCT, B MG/DL LABORATORIES - [facility] Sample Site, Capillary [facility] Blood Gas, LABORATORIES - POCT [facility] Specimen Anatomical Collection Method Collection Time Receive d Time (Source) Location / / Volume Laterality 11/27/2014 6:26 AM 5 6:26 CDT AM CDT Historical Provider LAB POCT ORDERABLES-MANUAL Performing Organization Address City/[facility] Phon e Number [facility] - [address] [place] [phone] [facility] (ABNORMAL) Glucose, POCT (11/26/2014 10:21 PM CDT) [facility] Method Time Signature Glucose, 144 (H) 70 - 140 [facility] POCT, B MG/DL LABORATORIES - [facility] Sample Site, Capillary [facility] Blood Gas, LABORATORIES - POCT [facility] Last Intake > 4 hours [facility] Specimen Anatomical Collection Method Collection Time Receive d Time (Source) Location / / Volume Laterality 11/26/2014 10:21 11/26/2014 PM CDT 10:21 PM CDT Historical Provider LAB POCT ORDERABLES-MANUAL Performing Organization Address [facility] Phon e Number [facility]IES - [address] [place] [address] [facility] (ABNORMAL) Glucose, POCT (11/26/2014 5:49 PM CDT) [facility] Method Time Signature Glucose, 167 (H) 70 - 140 [facility] POCT, B MG/DL LABORATORIES - [facility] Sample Site, Capillary [facility] Blood Gas, LABORATORIES - POCT [facility] Last Intake 2-3 hours [facility] Specimen Anatomical Collection Method Collection Time Receive d Time (Source) Location / / Volume Laterality 11/26/2014 5:49 PM 5 5:49 CDT PM CDT Historical Provider LAB POCT ORDERABLES-MANUAL Performing Organization Address City/[facility] Phon e Number [facility]IES - [address] [address] [facility] (ABNORMAL) Glucose, POCT (11/26/2014 11:48 AM CDT) [facility] Signature Glucose, POCT, 147 (H) 70 - 140 [facility] B MG/DL [facility] - [facility] Specimen Anatomical Collection Method Collection Time Receive d Time (Source) Location / / Volume Laterality 11/26/2014 11:48 11/26/2014 AM CDT 11:48 AM CDT Historical Provider LAB POCT ORDERABLES-MANUAL Performing Organization Address City/[facility] Phon e Number [facility] - [address] [place] [address] [facility] (ABNORMAL) Electrolyte (Chem 4) Panel (11/26/2014 7:18 AM CDT) [facility] Signature Sodium, S 140 135 - 145 [facility] MMOL/L [facility] Potassium, S 4.0 3.6 - 5.2 [facility] MMOL/L [facility] Chloride, S 98 98 - 107 [facility] MMOL/L [facility] - [facility] HX Bicarbonate, 29 22 - 29 [facility] P/S MMOL/L LABORATORIES - [facility] Creatinine 1.1 0.8 - 1.3 [facility] MG/DL LABORATORIES - [facility] eGFR >60 >60 [facility] Non-Black/Afric ML/MIN/BSA LABORATORIES - an Uzbek [facility] eGFR-Black/Afri >60 >60 [facility] can Uzbek ML/MIN/BSA LABORATORIES - [facility] BUN (Blood Urea 27 (H) 8 - 24 [facility] Nitrogen), S MG/DL LABORATORIES - [facility] Anion Gap 13 7 - 15 [facility] LABORATORIES - [facility] Glucose, S 139 70 - 140 [facility] MG/DL LABORATORIES - [facility] Specimen Anatomical Collection Method Collection Time Receive d Time (Source) Location / / Volume Laterality 11/26/2014 7:18 AM 5 7:18 CDT AM CDT Shane Mendes M.D. LAB BLOOD ADD-ON Performing Organization Address City/[facility]/ZIP Code Phon e Number [facility] - [address] [phone] [facility] Magnesium (11/26/2014 7:18 AM CDT) P athologist Signature Magnesium, S 1.8 1.7 - 2.3 [facility] MG/DL LABORATORIES - [facility] Specimen Anatomical Collection Method Collection Time Receive d Time (Source) Location / / Volume Laterality 11/26/2014 7:18 AM 5 7:18 CDT AM CDT Shane Mendes M.D. LAB BLOOD ADD-ON Performing Organization Address City/[facility]/ZIP Code Phon e Number [facility] - [address] [address] [facility] Phosphorus Inorganic (11/26/2014 7:18 AM CDT) Analysis Performed At Patho logist Time Signature Phosphorus 2.5 2.5 - 4.5 [facility] (Inorganic), S MG/DL LABORATORIES - [facility] Specimen Anatomical Collection Method Collection Time Receive d Time (Source) Location / / Volume Laterality 11/26/2014 7:18 AM 5 7:18 CDT AM CDT Shane Mendes M.D. LAB BLOOD ADD-ON Performing Organization Address City/[facility]/ZIP Code Phon e Number [facility] - [address] [place] [address] [facility] (ABNORMAL) Glucose, POCT (11/26/2014 6:43 AM CDT) [facility] gist Method Time Signature Last Intake > 4 hours [facility] Glucose, 145 (H) 70 - 140 [facility] POCT, B MG/DL LABORATORIES - [facility] Sample Site, Capillary [facility] Blood Gas, LABORATORIES - POCT [facility] Specimen Anatomical Collection Method Collection Time Receive d Time (Source) Location / / Volume Laterality 11/26/2014 6:43 AM 5 6:43 CDT AM CDT Historical Provider LAB POCT ORDERABLES-MANUAL Performing Organization Address City/[facility]/ZIP Code Phon e Number [facility] - [address] [place], [place] [address] [facility] (ABNORMAL) Glucose, POCT (11/25/2014 9:56 PM CDT) [facility] Method Time Signature Last Intake 2-3 hours [facility] Glucose, 145 (H) 70 - 140 [facility] POCT, B MG/DL LABORATORIES - [facility] Sample Site, Capillary [facility] Blood Gas, LABORATORIES - POCT [facility] Specimen Anatomical Collection Method Collection Time Receive d Time (Source) Location / / Volume Laterality 11/25/2014 9:56 PM 5 9:56 CDT PM CDT Historical Provider LAB POCT ORDERABLES-MANUAL Performing Organization Address City/State/ZIP Code Phon e Number [facility] - [address] [place], [place] [address] [facility] (ABNORMAL) Glucose, POCT (11/25/2014 5:35 PM CDT) [facility] Method Time Signature Glucose, 207 (H) 70 - 140 [facility] POCT, B MG/DL LABORATORIES [facility] Sample Site, Capillary [facility] Blood Gas, LABORATORIES - POCT [facility] Last Intake 2-3 hours [facility] Specimen Anatomical Collection Method Collection Time Receive d Time (Source) Location / / Volume Laterality 11/25/2014 5:35 PM 5 5:35 CDT PM CDT Historical Provider LAB POCT ORDERABLES-MANUAL Performing Organization Address City/State/ZIP Code Phon e Number [facility]IES - [address] [place], [place] [address] [facility] (ABNORMAL) Glucose, POCT (11/25/2014 2:47 PM CDT) [facility] Method Time Signature Glucose, POCT, 189 (H) 70 - 140 [facility] B MG/DL LABORATORIES - [facility] Last Intake 3-4 hours [facility] Specimen Anatomical Collection Method Collection Time Receive d Time (Source) Location / / Volume Laterality 11/25/2014 2:47 PM 5 2:47 CDT PM CDT Historical Provider LAB POCT ORDERABLES-MANUAL Performing Organization Address City/[facility] Code Phon e Number [facility] - [address] [place] [address] [facility] (ABNORMAL) Glucose, POCT (11/25/2014 6:40 AM CDT) [facility] Time Signature Glucose, 158 (H) 70 - 140 [facility] POCT, B MG/DL LABORATORIES - [facility] Sample Site, Capillary [facility] Blood Gas, LABORATORIES - POCT [facility] Last Intake > 4 hours [facility] Specimen Anatomical Collection Method Collection Time Receive d Time (Source) Location / / Volume Laterality 11/25/2014 6:40 AM 5 6:40 CDT AM CDT Historical Provider LAB POCT ORDERABLES-MANUAL Performing Organization Address City/State/[facility] Code Phon e Number [facility]IES - [address] [place], [place] [address] [facility] (ABNORMAL) CBC with Differential (11/25/2014 4:09 AM CDT) [facility] Signature Hemoglobin 14.7 13.5 - [facility] 17.5 G/DL [facility] Hematocrit 46.3 38.8 - [facility] 50.0 % [facility] RBC Distrib 15.8 (H) 11.8 - [facility] Width 15.6 % [facility] Platelet Count 168 150 - 450 [facility] X10(9)/L [facility] Lymphocytes 1.42 0.90 - [facility] 2.90 LABORATORIES - X10(9)/L [facility] Monocytes 1.43 (H) 0.30 - [facility] 0.90 LABORATORIES - X10(9)/L [facility] Erythrocytes 5.09 4.32 - [facility] 5.72 LABORATORIES - X10(12)/L [facility] MCV 91.0 81.2 - [facility] 95.1 [place] LABORATORIES - [facility] Leukocytes 11.2 (H) 3.5 - [facility] 10.5 LABORATORIES - X10(9)/L [facility] Neutrophils 8.00 (H) 1.70 - [facility] 7.00 LABORATORIES - X10(9)/L [facility] Eosinophils 0.34 0.05 - [facility] 0.50 LABORATORIES - X10(9)/L [facility] Basophils 0.04 0.00 - [facility] 0.30 LABORATORIES - X10(9)/L [facility] Specimen Anatomical Collection Method Collection Time Receive d Time (Source) Location / / Volume Laterality 11/25/2014 4:09 AM 5 4:09 CDT AM CDT Berkley Kaufman M.D. LAB BLOOD ADD-ON Performing Organization Address City/State/ZIP Code Phon e Number [facility]IES - [address] [place], [place] [address] [facility] (ABNORMAL) Electrolyte (Chem 4) Panel (11/25/2014 4:09 AM CDT) [facility] gist Method Time Signature Chloride, S 100 98 - 107 [facility] MMOL/L LABORATORIES [facility] HX Bicarbonate, 30 (H) 22 - 29 [facility] P/S MMOL/L LABORATORIES [facility] eGFR-Black/Afri >60 >60 [facility] can U[place]bek ML/MIN/BS LABORATORIES - A [facility] BUN (Blood Urea 35 (H) 8 - 24 [facility] Nitrogen), S MG/DL LABORATORIES [facility] Sodium, S 142 135 - 145 [facility] MMOL/L [facility] Potassium, S 4.7 3.6 - 5.2 [facility] MMOL/L [facility] Creatinine 1.2 0.8 - 1.3 [facility] MG/DL LABORATORIES - [facility] eGFR >60 >60 [facility] Non-Black/Afric ML/MIN/BS LABORATORIES - an Uzbek A [facility] Anion Gap 12 7 - 15 [facility] LABORATORIES - [facility] Glucose, S 152 (H) 70 - 140 [facility] MG/DL LABORATORIES - [facility] Specimen Anatomical Collection Method Collection Time Receive d Time (Source) Location / / Volume Laterality 11/25/2014 4:09 AM 5 4:09 CDT AM CDT Berkley Kaufman M.D. LAB BLOOD ADD-ON Performing Organization Address City/[facility]/ZIP Code Phon e Number [facility]IES - [address] [place] [address] [facility] (ABNORMAL) Phosphorus Inorganic (11/25/2014 4:09 AM CDT) [facility] Method Time Signature Phosphorus 1.8 (L) 2.5 - 4.5 [facility] (Inorganic), S MG/DL LABORATORIES - [facility] Specimen Anatomical Collection Method Collection Time Receive d Time (Source) Location / / Volume Laterality 11/25/2014 4:09 AM 5 4:09 CDT AM CDT Berkley Kaufman M.D. LAB BLOOD ADD-ON Performing Organization Address City/[facility] Phon e Number [facility]IES - [address] [address] [facility] (ABNORMAL) Glucose, POCT (11/25/2014 1:39 AM CDT) [facility] Method Time Signature Glucose, 147 (H) 70 - 140 [facility] POCT, B MG/DL LABORATORIES - [facility] Sample Site, Capillary [facility] Blood Gas, LABORATORIES - POCT [facility] Last Intake > 4 hours [facility] - [facility] Specimen Anatomical Collection Method Collection Time Receive d Time (Source) Location / / Volume Laterality 11/25/2014 1:39 AM 5 1:39 CDT AM CDT Historical Provider LAB POCT ORDERABLES-MANUAL Performing Organization Address City/[facility] Phon e Number [facility] - [address] [place] [address] [facility] (ABNORMAL) Glucose, POCT (11/24/2014 7:34 PM CDT) [facility] Method Time Signature Glucose, POCT, 194 (H) 70 - 140 [facility] B MG/DL LABORATORIES - [facility] Sample Site, ARTLINE [facility] Blood Gas, LABORATORIES - POCT [facility] Specimen Anatomical Collection Method Collection Time Receive d Time (Source) Location / / Volume Laterality 11/24/2014 7:34 PM 5 7:34 CDT PM CDT Historical Provider LAB POCT ORDERABLES-MANUAL Performing Organization Address City/[facility]/ZIP Code Phon e Number [facility]IES - [address] [place] [address] [facility] (ABNORMAL) Glucose, POCT (11/24/2014 1:21 PM CDT) Patholo gist Method Time Signature Glucose, POCT, 199 (H) 70 - 140 [facility] B MG/DL LABORATORIES - [facility] Sample Site, ARTLINE [facility] Blood Gas, LABORATORIES - POCT [facility] Specimen Anatomical Collection Method Collection Time Receive d Time (Source) Location / / Volume Laterality 11/24/2014 1:21 PM 5 1:21 CDT PM CDT Historical Provider LAB POCT ORDERABLES-MANUAL Performing Organization Address City/[facility]/ZIP Code Phon e Number [facility]IES - [address] [place] [phone] [facility] Phosphorus Inorganic (11/24/2014 6:50 AM CDT) Analysis Performed At Patho logist Time Signature Phosphorus 2.5 2.5 - 4.5 [facility] (Inorganic), S MG/DL LABORATORIES - [facility] Specimen Anatomical Collection Method Collection Time Receive d Time (Source) Location / / Volume Laterality 11/24/2014 6:50 AM 5 6:50 CDT AM CDT Eric Hess M.D. LAB BLOOD ADD-ON Performing Organization Address City/[facility]/ZIP Code Phon e Number [facility]IES - [address] [place], [place] [address] [facility] Magnesium (11/24/2014 6:50 AM CDT) P athologist Signature Magnesium, S 2.0 1.7 - 2.3 [facility] MG/DL LABORATORIES - [facility] Specimen Anatomical Collection Method Collection Time Receive d Time (Source) Location / / Volume Laterality 11/24/2014 6:50 AM 5 6:50 CDT AM CDT Eric Hess M.D. LAB BLOOD ADD-ON Performing Organization Address City/State/ZIP Code Phon e Number [facility]IES - [address] [place], [place] [address] [facility] PT (Prothrombin Time) with INR (11/24/2014 6:50 AM CDT) [facility] Delivery Hero Method Time Signature Prothrombin 12.8 9.5 - 13.8 [facility] Time, P SEC [facility] INR 1.1 0.8 - 1.2 [facility] Specimen Anatomical Collection Method Collection Time Receive d Time (Source) Location / / Volume Laterality 11/24/2014 6:50 AM 5 6:50 CDT AM CDT Eric Hess M.D. LAB BLOOD ADD-ON Performing Organization Address City/[facility]/ZIP Code Phon e Number [facility] - [address] [place], [place] [address] [facility] (ABNORMAL) Blood Gas with Coox, Arterial (11/24/2014 6:50 AM CDT) [facility] Delivery Hero Method Time Signature Device NCPAP [facility] Spont. 22 [facility] breaths/min [facility] pO2 117 (H) 80 - 100 [facility] MM HG [facility] pCO2 56 (H) 35 - 45 [facility] MM HG [facility] pH 7.34 (L) 7.35 - [facility] 7.45 PH [facility] Base Excess 4 (H) -2 - 2 [facility] MMOL/L [facility] O2Hb 95.7 94.0 - [facility] 98.0 % [facility] COHb 1.7 <3.0 % [facility] Arterial Art Line [facility] Sample Site [facility] FIO2 0.60 .21=AIR [facility] HCO3 30 (H) 22 - 26 [facility] MMOL/L [facility] Hb 14.6 13.5 - [facility] 17.5 G/DL [facility] MetHb 1.0 <1.6 % [facility] CtO2 19.8 (L) 21.0 - [facility] 23.0 VOL [facility] Specimen Anatomical Collection Method Collection Time Receive d Time (Source) Location / / Volume Laterality 11/24/2014 6:50 AM 5 6:50 CDT AM CDT Eric Hess M.D. LAB BLOOD NON ADD-ON Performing Organization Address City/[facility]/ZIP Code Phon e Number [facility] LABORATORIES - [address] [address] [facility] (ABNORMAL) CBC without Differential (11/24/2014 6:50 AM CDT) [facility] Method Time Signature Leukocytes 11.4 (H) 3.5 - [facility] 10.5 LABORATORIES - X10(9)/L [facility] Hemoglobin 14.0 13.5 - [facility] 17.5 G/DL LABORATORIES - [facility] MCV 90.5 81.2 - [facility] 95.1 [place] LABORATORIES - [facility] RBC Distrib 16.1 (H) 11.8 - [facility] Width 15.6 % LABORATORIES - [facility] Platelet Count 146 (L) 150 - 450 [facility] X10(9)/L LABORATORIES - [facility] Hematocrit 44.6 38.8 - [facility] 50.0 % LABORATORIES - [facility] Erythrocytes 4.93 4.32 - [facility] 5.72 LABORATORIES - X10(12)/L [facility] Specimen Anatomical Collection Method Collection Time Receive d Time (Source) Location / / Volume Laterality 11/24/2014 6:50 AM 5 6:50 CDT AM CDT Eric Hess M.D. LAB BLOOD ADD-ON Performing Organization Address City/State/ZIP Code Phon e Number [facility] LABORATORIES - [address] [place] [address] [facility] Calcium, Ionized (11/24/2014 6:50 AM CDT) athologist Signature Calcium, 5.07 4.65 - [facility] Ionized, B 5.30 MG/DL [facility] - [facility] Specimen Anatomical Collection Method Collection Time Receive d Time (Source) Location / / Volume Laterality 11/24/2014 6:50 AM 5 6:50 CDT AM CDT Eric Hess M.D. LAB BLOOD NON ADD-ON Performing Organization Address City/State/ZIP Code Phon e Number [facility] LABORATORIES - [address] [place] [address] [facility] (ABNORMAL) Electrolyte (Chem 4) Panel (11/24/2014 6:50 AM CDT) [facility] Method Time Signature Chloride, S 102 98 - 107 [facility] MMOL/L LABORATORIES - [facility] HX Bicarbonate, 27 22 - 29 [facility] P/S MMOL/L LABORATORIES - [facility] eGFR-Black/Afri >60 >60 [facility] can Uzbek ML/MIN/BS LABORATORIES - A [facility] BUN (Blood Urea 47 (H) 8 - 24 [facility] Nitrogen), S MG/DL LABORATORIES - [facility] Sodium, S 142 135 - 145 [facility] MMOL/L LABORATORIES - [facility] Potassium, S 4.8 3.6 - 5.2 [facility] MMOL/L LABORATORIES - [facility] Creatinine 1.4 (H) 0.8 - 1.3 [facility] MG/DL LABORATORIES - [facility] eGFR 52 (L) >60 [facility] Non-Black/Afric ML/MIN/BS LABORATORIES - an Uzbek A [facility] Anion Gap 13 7 - 15 [facility] LABORATORIES - [facility] Glucose, S 132 70 - 140 [facility] MG/DL LABORATORIES - [facility] Specimen Anatomical Collection Method Collection Time Receive d Time (Source) Location / / Volume Laterality 11/24/2014 6:50 AM 5 6:50 CDT AM CDT Eric Hess M.D. LAB BLOOD ADD-ON Performing Organization Address City/State/ZIP Code Phon e Number [facility] LABORATORIES - [address] [place] [address] [facility] Glucose, POCT (11/24/2014 6:49 AM CDT) P athologist Signature Glucose, POCT, 137 70 - 140 [facility] B MG/DL LABORATORIES - [facility] Sample Site, ARTL [facility] Blood Gas, LABORATORIES - POCT [facility] Specimen Anatomical Collection Method Collection Time Receive d Time (Source) Location / / Volume Laterality 11/24/2014 6:49 AM 5 6:49 CDT AM CDT Historical Provider LAB POCT ORDERABLES-MANUAL Performing Organization Address City/[facility]/ZIP [facility] Phon e Number [facility] - [address] [place] [address] [facility] (ABNORMAL) Blood Gas with Coox, Arterial (11/24/2014 2:50 AM CDT) Patholo gist Method Time Signature Arterial Art Line [facility] Sample Site LABORATORIES - [facility] O2 Flow 4.0 L/MIN [facility] LABORATORIES - [facility] pO2 53 (L) 80 - 100 [facility] MM HG LABORATORIES [facility] pCO2 51 (H) 35 - 45 [facility] MM HG LABORATORIES [facility] HCO3 28 (H) 22 - 26 [facility] MMOL/L LABORATORIES [facility] Hb 14.7 13.5 - [facility] 17.5 G/DL [facility] MetHb <1.0 <1.6 % [facility] LABORATORIES [facility] CtO2 17.5 (L) 21.0 - [facility] 23.0 VOL LABORATORIES - % [facility] Device NC [facility] LABORATORIES - [facility] Spont. 19 [facility] breaths/min LABORATORIES [facility] pH 7.36 7.35 - [facility] 7.45 PH [facility] Base Excess 3 (H) -2 - 2 [facility] MMOL/L [facility] O2Hb 84.6 (L) 94.0 - [facility] 98.0 % [facility] COHb 1.6 <3.0 % [facility] LABORATORIES [facility] Specimen Anatomical Collection Method Collection Time Receive d Time (Source) Location / / Volume Laterality 11/24/2014 2:50 AM 5 2:50 CDT AM CDT Kemal Heredia M.D. LAB BLOOD NON ADD-ON Performing Organization Address City/State/ZIP Code Phon e Number [facility] - [address] [place] [address] 05 [facility] Glucose, POCT (11/24/2014 2:49 AM CDT) Patholo gist Method Time Signature Glucose, POCT, 135 70 - 140 [facility] B MG/DL LABORATORIES [facility] Sample Site, ARTLINE [facility] Blood Gas, LABORATORIES - POCT [facility] Specimen Anatomical Collection Method Collection Time Receive d Time (Source) Location / / Volume Laterality 11/24/2014 2:49 AM 5 2:49 CDT AM CDT Historical Provider LAB POCT ORDERABLES-MANUAL Performing Organization Address City/[facility] Phon e Number [facility] - [address] [place] [address] [facility] Glucose, POCT (11/23/2014 7:05 PM CDT) P athologist Signature Glucose, POCT, 133 70 - 140 [facility] B MG/DL LABORATORIES [facility] Specimen Anatomical Collection Method Collection Time Receive d Time (Source) Location / / Volume Laterality 11/23/2014 7:05 PM 5 7:05 CDT PM CDT Historical Provider LAB POCT ORDERABLES-MANUAL Performing Organization Address City/[facility]/ZIP Code Phon e Number [facility] - [address] [place] [address] [facility] (ABNORMAL) Blood Gas without Coox, Arterial (11/23/2014 3:35 PM CDT) Patholo gist Method Time Signature Device NC [facility] Spont. 16 [facility] breaths/min [facility] pO2 74 (L) 80 - 100 [facility] MM HG [facility] pCO2 48 (H) 35 - 45 [facility] MM HG [facility] HCO3 27 (H) 22 - 26 [facility] MMOL/L [facility] Arterial Art Line [facility] Sample Site [facility] O2 Flow 4.0 L/MIN [facility] pH 7.37 7.35 - [facility] 7.45 PH [facility] Base Excess 2 -2 - 2 [facility] MMOL/L [facility] Specimen Anatomical Collection Method Collection Time Receive d Time (Source) Location / / Volume Laterality 11/23/2014 3:35 PM 5 3:35 CDT PM CDT Danni Bran APRN C.N.P., M.S., R.N. LAB BLOO D NON ADD-ON Performing Organization Address City/[facility]/ZIP Code Phon e Number [facility] - [address] [phone] [facility] (ABNORMAL) Cardiac Biomarker Panel (11/23/2014 3:35 PM CDT) Analysis Performed At Patho logist Time Signature Delta Interp Not Sig [facility] Comment: No significant delta observed. Troponin Delta 0.00 NG/ML [facility] Troponin Delta -0.01 NG/ML [facility] Troponin T, S 0.04 (H) <0.01 NG/ML [facility] Troponin T 3H, S 0.04 (H) <0.01 NG/ML [facility] Troponin T 6H, S 0.03 (H) <0.01 NG/ML [facility] LABORATORIES [facility] Delta Interp Not Sig [facility] LABOR ATORIES - [facility] Comment: No significant delta observed. Specimen Anatomical Collection Method Collection Time Receive d Time (Source) Location / / Volume Laterality 11/23/2014 3:35 PM 5 3:35 CDT PM CDT Danni Bran APRN, C.N.P., M.S., R.N. LAB BLOO D ADD-ON Performing Organization Address City/[facility]/ZIP Code Phon e Number [facility] - [address] [place], [place] [address] [facility] (ABNORMAL) Electrolyte (Chem 4) Panel (11/23/2014 3:35 PM CDT) [facility] Method Time Signature Chloride, S 100 98 - 107 [facility] MMOL/L LABORATORIES [facility] HX Bicarbonate, 25 22 - 29 [facility] P/S MMOL/L LABORATORIES [facility] eGFR-Black/Afri 40 (L) >60 [facility] can Uzbek ML/MIN/BS LABORATORIES - A [facility] BUN (Blood Urea 54 (H) 8 - 24 [facility] Nitrogen), S MG/DL [facility] Sodium, S 141 135 - 145 [facility] MMOL/L [facility] Potassium, S 4.7 3.6 - 5.2 [facility] MMOL/L [facility] Creatinine 2.1 (H) 0.8 - 1.3 [facility] MG/DL [facility] eGFR 33 (L) >60 [facility] Non-Black/Afric ML/MIN/BS LABORATORIES - an Uzbek A [facility] Anion Gap 16 (H) 7 - 15 [facility] LABORATORIES [facility] Glucose, S 123 70 - 140 [facility] MG/DL LABORATORIES - [facility] Specimen Anatomical Collection Method Collection Time Receive d Time (Source) Location / / Volume Laterality 11/23/2014 3:35 PM 5 3:35 CDT PM CDT Danni Bran APRN, C.N.P., M.S., R.N. LAB BLOO D ADD-ON Performing Organization Address City/[facility]/ZIP Code Phon e Number [facility] - [address] [facility], [place] [address] [facility] Glucose, POCT (11/23/2014 3:30 PM CDT) [facility] Method Time Signature Glucose, POCT, 120 70 - 140 [facility] B MG/DL LABORATORIES - [facility] Sample Site, [facility] Blood Gas, LABORATORIES - POCT [facility] Specimen Anatomical Collection Method Collection Time Receive d Time (Source) Location / / Volume Laterality 11/23/2014 3:30 PM 5 3:30 CDT PM CDT Historical Provider LAB POCT ORDERABLES-MANUAL Performing Organization Address City/[facility]/ZIP Code Phon e Number [facility] - [address] [place], [place] [address] [facility] ECG 12 Lead (11/23/2014 2:47 PM CDT) Specimen (Source) Anatomical Collection Method Collection Time Re ceived Time Location / / Volume Laterality 11/23/2014 2:47 PM CDT [facility] RADIOLOGY SYSTEM - 11/24/2014 11:10 AM CDT 23Nov2014 14:47 VENTRICULAR RATE 62 Atrial flutter with variable A-V block Right bundle branch block When compared with ECG of 22-NOV-2014 19 :48, No significant change was found [id number]^ANA LUISA ?^[facility] Procedure Note Kaiser Skaggs Jr., M.D. - 11/27/2017For matting of this note might be different from the original. 23Nov2014 14:47 VENTRICULAR RATE 62 Atrial flutter with variable A-V block Right bundle branch block When compared with ECG of 22-NOV-2014 19 :48, No significant change was found [id number]^ANA LUISA PALOMO MD^[facility] Kemal Hereida M.D. ECG ORDERABLES Performing Organization Address City/State/ZIP Code Phon e Number HX [facility] RADIOLOGY SYSTEM [address] [place] [address], U SA Glucose, POCT (11/23/2014 7:46 AM CDT) [facility] Method Time Signature Glucose, POCT, 97 70 - 140 [facility] B MG/DL LABORATORIES - [facility] Sample Site, [facility] Blood Gas, LABORATORIES - POCT [facility] Specimen Anatomical Collection Method Collection Time Receive d Time (Source) Location / / Volume Laterality 11/23/2014 7:46 AM 5 7:46 CDT AM CDT Historical Provider LAB POCT ORDERABLES-MANUAL Performing Organization Address City/State/ZIP Code Phon e Number [facility] - [address] [place], [place] [address] [facility] DX Chest Portable 1 View (11/23/2014 6:16 AM CDT) Anatomical Region Laterality Modality Chest N/A Radiographic Imaging Specimen (Source) Anatomical Collection Method Collection Time Re ceived Time Location / / Volume Laterality 11/23/2014 6:16 AM CDT Impressions 11/23/2014 6:21 AM CDT No change since yesterday. Atelectasis in both bases. Shallow inspiration. Electronically signed by: ?? Juice Tmoas MD. ??[phone] 23-Nov-2014 06: 21 Narrative 11/23/2014 [...] athologist Signature Hemoglobin 14.1 13.5 - 17.5 [facility] G/DL [facility] Comment: Drawn From Arterial Line Hematocrit 45.5 38.8 - 50.0 % [facility] Comment: Drawn From Arterial Line RBC Distrib Width 16.4 (H) 11.8 - 15.6 % STAR CLI [facility] Comment: Drawn From Arterial Line Platelet Count 150 150 - 450 X10(9)/L [facility] Comment: Drawn From Arterial Line Leukocytes 15.1 (H) 3.5 - 10.5 X10(9)/L [facility] IC [facility] Comment: Drawn From Arterial Line Erythrocytes 4.89 4.32 - 5.72 X10(12)/L [facility] Comment: Drawn From Arterial Line MCV 93.0 81.2 - 95.1 FL [facility] Comment: Drawn From Arterial Line Specimen Anatomical Collection Method Collection Time Receive d Time (Source) Location / / Volume Laterality 11/23/2014 3:47 AM 5 3:47 CDT AM CDT Narrative [facility] [place] - 11/23/2014 4:13 AM CDT Drawn From Arterial Line Kemal Heredia M.D. LAB BLOOD ADD-ON Performing Organization Address City/State/ZIP Code Phon e Number [facility] - [address] [place] [address] [facility] (ABNORMAL) Blood Gas without Coox, Arterial (11/23/2014 3:47 AM CDT) [facility] Method Time Signature Arterial Art Line [facility] Sample Site [facility] Comment: Drawn From Arterial Line FIO2 0.35 .21=[facility] Comment: Drawn From Arterial Line pO2 129 (H) 80 - 100 MM HG [facility] Comment: Drawn From Arterial Line pCO2 59 (H) 35 - 45 MM HG [facility] Comment: Drawn From Arterial Line pH 7.30 (L) 7.35 - 7.45 PH [facility] Comment: Drawn From Arterial Line Base Excess 2 -2 - 2 MMOL/L [facility] Comment: Drawn From Arterial Line Device [facility] Comment: Drawn From Arterial Line Spont. breaths/min 12 [facility] Comment: Drawn From Arterial Line HCO3 28 (H) 22 - 26 MMOL/L [facility] Comment: Drawn From Arterial Line Specimen Anatomical Collection Method Collection Time Receive d Time (Source) Location / / Volume Laterality 11/23/2014 3:47 AM 5 3:47 CDT AM CDT Narrative [facility] [place] - 11/23/2014 4:04 AM CDT Drawn From Arterial Line Kemal Heredia M.D. LAB BLOOD NON ADD-ON Performing Organization Address City/State/ZIP Code Phon e Number [facility] - [address] [place], [place] [address] [facility] (ABNORMAL) Electrolyte (Chem 4) Panel (11/23/2014 3:47 AM CDT) P athologist Signature Sodium, S 140 135 - 145 [facility] MMOL/L [facility] Comment: Drawn From Arterial Line Potassium, S 4.9 3.6 - 5.2 MMOL/L [facility] Comment: Drawn From Arterial Line Creatinine 2.6 (H) 0.8 - 1.3 MG/DL [facility] Comment: Drawn From Arterial Line eGFR Non-Black/ 26 (L) >60 ML/MIN/BSA [facility][NOTE 2] S Comment: Drawn From Arterial Line eGFR-Black/ 31 (L) >60 ML/MIN/BSA [facility][NOTE 2] S Comment: Drawn From Arterial Line BUN (Blood Urea Nitrogen), S 58 (H) 8 - 24 MG/DL [facility][NOTE 2] S Comment: Drawn From Arterial Line Chloride, S 99 98 - 107 MMOL/L [facility] PAM [facility] Comment: Drawn From Arterial Line HX Bicarbonate, P/S 26 22 - 29 MMOL/L M [facility] Comment: Drawn From Arterial Line Anion Gap 15 7 - 15 [facility] LABORATO PAPI [facility] Comment: Drawn From Arterial Line Glucose, S 84 70 - 140 MG/DL [facility] Comment: Drawn From Arterial Line Specimen Anatomical Collection Method Collection Time Receive d Time (Source) Location / / Volume Laterality 11/23/2014 3:47 AM 5 3:47 CDT AM CDT Narrative [facility] [place] - 11/23/2014 4:48 AM CDT Drawn From Arterial Line Kemal Hreedia M.D. LAB BLOOD ADD-ON Performing Organization Address City/State/ZIP Code Phon e Number [facility] - [address] [place] [address] [facility] (ABNORMAL) Phosphorus Inorganic (11/23/2014 3:47 AM CDT) Patholo gist Method Time Signature Phosphorus 5.3 (H) 2.5 - 4.5 [facility] (Inorganic), S MG/DL [facility] Comment: Drawn From Arterial Line Specimen Anatomical Collection Method Collection Time Receive d Time (Source) Location / / Volume Laterality 11/23/2014 3:47 AM 5 3:47 CDT AM CDT Narrative [facility] [place] - 11/23/2014 4:48 AM CDT Drawn From Arterial Line Kemal Heredia M.D. LAB BLOOD ADD-ON Performing Organization Address City/[facility]/ZIP Code Phon e Number [facility] - [address] [address] [facility] Magnesium (11/23/2014 3:47 AM CDT) P athologist Signature Magnesium, S 2.0 1.7 - 2.3 [facility] MG/DL [facility] Comment: Drawn From Arterial Line Specimen Anatomical Collection Method Collection Time Receive d Time (Source) Location / / Volume Laterality 11/23/2014 3:47 AM 5 3:47 CDT AM CDT Narrative [facility] [place] - 11/23/2014 4:48 AM CDT Drawn From Arterial Line Kemal Heredia M.D. LAB BLOOD ADD-ON Performing Organization Address City/State/ZIP Code Phon e Number [facility] - [address] [place] [address] [facility] Potassium, Blood (11/23/2014 3:47 AM CDT) P athologist Signature Potassium, B 4.5 3.6 - 5.2 [facility] MMOL/L [facility] Comment: Drawn From Arterial Line Specimen Anatomical Collection Method Collection Time Receive d Time (Source) Location / / Volume Laterality 11/23/2014 3:47 AM 5 3:47 CDT AM CDT Narrative [facility] - 11/23/2014 4:04 AM CDT Drawn From Arterial Line Kemal Heredia M.D. LAB BLOOD NON ADD-ON Performing Organization Address City/[facility]/ZIP Code Phon e Number [facility]IES - [address] [place] [address] [facility] Glucose, POCT (11/23/2014 1:57 AM CDT) [facility] Method Time Signature Glucose, POCT, 97 70 - 140 [facility] B MG/DL LABORATORIES - [facility] Sample Site, ARTLINE [facility] Blood Gas, LABORATORIES - POCT [facility] Specimen Anatomical Collection Method Collection Time Receive d Time (Source) Location / / Volume Laterality 11/23/2014 1:57 AM 5 1:57 CDT AM CDT Historical Provider LAB POCT ORDERABLES-MANUAL Performing Organization Address City/[facility] Phon e Number [facility]ORATORIES - [address] [address] [facility] (ABNORMAL) Microscopic Manual (11/23/2014 1:41 AM CDT) [facility] Method [place] Signature Microscopy Abnormal [facility] LABORATORIES [facility] Blood <3 <3 /HPF [facility] WBC 4-10 (A) 1-3 [facility] (Males); LABORATORIES - 1-10 [facility] (Females[facility] CAMPUS /HPF Casts, Hyaline 4-10 /LPF [facility] LABORATORIES [facility] Squamous 1-3 /HPF [facility] Epithelial LABORATORIES - [facility] Specimen Anatomical Collection Method Collection Time Receive d Time (Source) Location / / Volume Laterality 11/23/2014 1:41 AM 5 1:41 CDT AM CDT Berkley Kaufman M.D. LAB URINE ORDERABLES Performing Organization Address City/[facility]/ZIP [facility] Phon e Number [facility] LABORATORIES - [address] [address] [facility] Sodium, Random, Urine (11/23/2014 1:41 AM CDT) [facility] Method [place] Signature Sodium, 28 Interpret [facility] Random, U with other; LABORATORIES - clinical [facility]. MMOL/L CAMPUS Specimen Anatomical Collection Method Collection Time Receive d Time (Source) Location / / Volume Laterality 11/23/2014 1:41 AM 5 1:41 CDT AM CDT Berkley Kaufman M.D. LAB URINE ORDERABLES Performing Organization Address City/State/ZIP Code Phon e Number [facility] LABORATORIES - [address] [place], [place] [address] [facility] (ABNORMAL) Urinalysis with Microscopic (11/23/2014 1:41 AM CDT) athologist Signature Source . [facility] Comment: Munoz Catheter Appearance Normal Normal [facility] Glucose 4 0 - 15 MG/DL [facility] ATORIES [facility] Protein, U 29 (H) <22 MG/DL [facility] Comment: ? ADDITIONAL INFORMATIO N ? On 03/20/2014 the total protein assay me thod changed resulting ? in approximately a 20% increase in prote in values. ? Osmolality, 24 HR, U 450 150 - 1150 MOSM/KG [facility]NOTE 2] S pH, 24 HR, U 4.5 4.5 - 8.0 [facility] LABOR ATORIES [facility] S Protein/Osmolality 0.64 (H) <0.27 [facility] S Comment: ? ADDITIONAL INFORMATIO N ? On 03/20/2014 the total protein assay me thod changed resulting ? in approximately a 20% increase in prote in values. ? Predicted 24 Hr Protein 620 MG/24 H [facility] Predicted Range 197-1952 MG/24 H [facility] Hemoglobin, QL Negative Negative [facility] Specimen Anatomical Collection Method Collection Time Receive d Time (Source) Location / / Volume Laterality 11/23/2014 1:41 AM 5 1:41 CDT AM CDT Berkley Kaufman M.D. LAB URINE ORDERABLES Performing Organization Address City/[facility]/ZIP Code Phon e Number [facility] LABORATORIES - [address] [place] [address] [facility] Creatinine, Random, Urine (11/23/2014 1:41 AM CDT) [employer] Method Time Signature Creatinine, 169 Used to [facility] Random, U normalize LABORATORIES - other; [facility] values. MG/DL CAMPUS Specimen Anatomical Collection Method Collection Time Receive d Time (Source) Location / / Volume Laterality 11/23/2014 1:41 AM 5 1:41 CDT AM CDT Berkley Kaufman M.D. LAB URINE ORDERABLES Performing Organization Address City/[facility] Phon e Number [facility] LABORATORIES - [address] [address] [facility] (ABNORMAL) Blood Gas without Coox, Arterial (11/23/2014 12:42 AM CDT) [employer] Method Time Signature Arterial Art Line [facility] Sample Site [facility] Comment: Drawn From Arterial Line FIO2 0.35 .21=[facility] Comment: Drawn From Arterial Line Device [facility] Comment: Drawn From Arterial Line Spont. breaths/min 16 [facility] Comment: Drawn From Arterial Line pO2 113 (H) 80 - 100 MM HG [facility] Comment: Drawn From Arterial Line pCO2 62 (H) 35 - 45 MM HG [facility] Comment: Drawn From Arterial Line pH 7.28 (L) 7.35 - 7.45 PH [facility] Comment: Drawn From Arterial Line Base Excess 2 -2 - 2 MMOL/L [facility] Comment: Drawn From Arterial Line HCO3 28 (H) 22 - 26 MMOL/L [facility] Comment: Drawn From Arterial Line Specimen Anatomical Collection Method Collection Time Receive d Time (Source) Location / / Volume Laterality 11/23/2014 12:42 11/23/2014 AM CDT 12:42 AM CDT Narrative [facility] [place] - 11/23/2014 12:54 AM CDT Drawn From Arterial Line Ernestina Tao M.D. LAB BLOOD NON ADD-ON Performing Organization Address City/State/ZIP Code Phon e Number [facility] - [address] [place] [address] [facility] (ABNORMAL) BMP (Basic Metabolic Panel) (11/23/2014 12:42 AM CDT) P athologist Signature Sodium, P 140 135 - 145 [facility] MMOL/L [facility] Comment: Drawn From Arterial Line Potassium, P 4.9 3.6 - 5.2 MMOL/L [facility] Comment: Drawn From Arterial Line eGFR Non-Black/ 24 (L) >60 ML/MIN/BSA [facility][NOTE 2] S Comment: Drawn From Arterial Line eGFR-Black/ 29 (L) >60 ML/MIN/BSA [facility] [place] S Comment: Drawn From Arterial Line BUN (Blood Urea Nitrogen), S 59 (H) 8 - 24 MG/DL [facility] [place]NOTE 2[place] S Comment: Drawn From Arterial Line HX Bicarbonate, P/S 28 22 - 29 MMOL/L [facility] Comment: Drawn From Arterial Line Glucose, S 88 70 - 140 MG/DL [facility] [place] Comment: Drawn From Arterial Line Anion Gap 13 7 - 15 [facility] Comment: Drawn From Arterial Line Chloride, S 99 98 - 107 MMOL/L [facility] - [facility] Comment: Drawn From Arterial Line Creatinine 2.8 (H) 0.8 - 1.3 MG/DL [facility] L ABORATORIES - [facility] Comment: Drawn From Arterial Line Specimen Anatomical Collection Method Collection Time Receive d Time (Source) Location / / Volume Laterality 11/23/2014 12:42 11/23/2014 AM CDT 12:42 AM CDT Narrative [facility] - 11/23/2014 1:24 AM CDT Drawn From Arterial Line Ernestina Tao M.D. LAB BLOOD ADD-ON Performing Organization Address City/[facility]/ZIP [facility] [place] Phon e Number [facility]IES - [address] [address] [facility] Glucose, POCT (11/22/2014 10:17 PM CDT) [facility] Method Time Signature Glucose, POCT, 86 70 - 140 [facility] B MG/DL LABORATORIES [facility] Sample Site, ARTLINE [facility] Blood Gas, LABORATORIES - POCT [facility] Specimen Anatomical Collection Method Collection Time Receive d Time (Source) Location / / Volume Laterality 11/22/2014 10:17 11/22/2014 PM CDT 10:17 PM CDT Historical Provider LAB POCT ORDERABLES-MANUAL Performing Organization Address City/State/ZIP Code Phon e Number [facility]IES - [address] [address] [facility] (ABNORMAL) Blood Gas with Coox, Arterial (11/22/2014 9:53 PM CDT) [facility] Method Time Signature Arterial Art Line [facility] Sample Site [facility] FIO2 0.35 .21=AIR [facility] pCO2 59 (H) 35 - 45 [facility] MM HG [facility] pH 7.29 (L) 7.35 - [facility] 7.45 PH [facility] Base Excess 1 -2 - 2 [facility] MMOL/L [facility] HCO3 27 (H) 22 - 26 [facility] MMOL/L [facility] Hb 13.7 13.5 - [facility] 17.5 G/DL [facility] O2Hb 95.7 94.0 - [facility] 98.0 % [facility] COHb 1.0 <3.0 % [facility] MetHb <1.0 <1.6 % [facility] LABORATORIES - [facility] Device BPAP [facility] pO2 102 (H) 80 - 100 [facility] MM HG [facility] CtO2 18.6 (L) 21.0 - [facility] 23.0 VOL LABORATORIES - % [facility] Specimen Anatomical Collection Method Collection Time Receive d Time (Source) Location / / Volume Laterality 11/22/2014 9:53 PM 5 9:53 CDT PM CDT Ernestina Tao M.D. LAB BLOOD NON ADD-ON Performing Organization Address City/[facility]/ZIP Code Phon e Number [facility]IES - [address] Potassium (11/22/2014 9:53 PM CDT) P athologist Signature Potassium, S 5.0 3.6 - 5.2 [facility] MMOL/L [facility] Specimen Anatomical Collection Method Collection Time Receive d Time (Source) Location / / Volume Laterality 11/22/2014 9:53 PM 5 9:53 CDT PM CDT Ernestina Tao M.D. LAB BLOOD ADD-ON Performing Organization Address City/[facility]/ZIP Code Phon e Number [facility]IES - [address] [phone] [facility] Glucose, POCT (11/22/2014 9:48 PM CDT) P athologist Signature Glucose, POCT, 91 70 - 140 [facility] B MG/DL LABORATORIES - [facility] Sample Site, ARTL [facility] Blood Gas, LABORATORIES - POCT [facility] Specimen Anatomical Collection Method Collection Time Receive d Time (Source) Location / / Volume Laterality 11/22/2014 9:48 PM 5 9:48 CDT PM CDT Historical Provider LAB POCT ORDERABLES-MANUAL Performing Organization Address City/[facility]/ZIP [facility] [place] [facility] Phon e Number [facility]IES - [address] [phone] [facility] (ABNORMAL) Cardiac Biomarker Panel (11/22/2014 9:24 PM CDT) Patholo gist Method Time Signature Troponin T, S 0.03 (H) <0.01 [facility] NG/ML [facility] Troponin T 3H, 0.04 (H) <0.01 [facility] S NG/ML [facility] Troponin Delta 0.01 NG/ML [facility] Delta Interp Not Sig [facility] Comment: No significant delta observed. Troponin Delta 0.01 NG/ML [facility] Troponin T 6H, S 0.04 (H) <0.01 NG/ML [facility] INIC [facility] Delta Interp Not Sig [facility] Comment: No significant delta observed. Specimen Anatomical Collection Method Collection Time Receive d Time (Source) Location / / Volume Laterality 11/22/2014 9:24 PM 5 9:24 CDT PM CDT Kemal Heredia M.D. LAB BLOOD ADD-ON Performing Organization Address City/[facility]/ZIP [facility] [place] [facility] Phon e Number [facility]IES - [address] [phone] [facility] Glucose, POCT (11/22/2014 9:20 PM CDT) P athologist Signature Glucose, POCT, 96 70 - 140 [facility] B MG/DL [facility] Sample Site, ARTL [facility] Blood Gas, LABORATORIES - POCT [facility] Specimen Anatomical Collection Method Collection Time Receive d Time (Source) Location / / Volume Laterality 11/22/2014 9:20 PM 5 9:20 CDT PM CDT Historical Provider LAB POCT ORDERABLES-MANUAL Performing Organization Address City/State/[facility] Phon e Number [facility]IES - [address] [address] [facility] (ABNORMAL) Glucose, POCT (11/22/2014 8:43 PM CDT) Patholo gist Method Time Signature Glucose, POCT, 154 (H) 70 - 140 [facility] B MG/DL [facility] Sample Site, ARTLINE [facility] Blood Gas, LABORATORIES - POCT [facility] Specimen Anatomical Collection Method Collection Time Receive d Time (Source) Location / / Volume Laterality 11/22/2014 8:43 PM 5 8:43 CDT PM CDT Historical Provider LAB POCT ORDERABLES-MANUAL Performing Organization Address City/[facility]/ZIP Code Phon e Number [facility]IES - [address] [phone] [facility] Glucose, POCT (11/22/2014 8:15 PM CDT) [facility] Method Time Signature Glucose, POCT, 111 70 - 140 [facility] B MG/DL LABORATORIES - [facility] Sample Site, Venstick [facility] Blood Gas, LABORATORIES - POCT [facility] Specimen Anatomical Collection Method Collection Time Receive d Time (Source) Location / / Volume Laterality 11/22/2014 8:15 PM 5 8:15 CDT PM CDT Historical Provider LAB POCT ORDERABLES-MANUAL Performing Organization Address [facility] Phon e Number [facility]ATORIES - [address] [phone] [facility] ECG 12 Lead (11/22/2014 7:48 PM CDT) Specimen (Source) Anatomical Collection Method Collection Time Re ceived Time Location / / Volume Laterality 11/22/2014 7:48 PM CDT [facility] [place] RADIOLOGY SYSTEM - 11/22/2014 8:09 PM CDT 22Nov2014 19:48 VENTRICULAR RATE 58 Atrial flutter with variable A-V block Right bundle branch block When compared with ECG of 22-NOV-2014 12 :14, QRS axis has changed [id number]^CARL ??^GLORIA Graham Procedure Note Gloria May M.D., M.B. - 11/27/2017F ormatting of this note might be different from the original. 22Nov2014 19:48 VENTRICULAR RATE 58 Atrial flutter with variable A-V block Right bundle branch block When compared with ECG of 22-NOV-2014 12 :14, QRS axis has changed [id number]^CARL MENDEZ^GLORIA Graham Emelia Gay, P.A.-C., M.S. ECG ORDERABLES Performing Organization Address City/[facility]/ZIP Code Phon e Number HX [facility] RADIOLOGY SYSTEM [address] [place] [address], U SA (ABNORMAL) Blood Gas with Coox, Arterial (11/22/2014 6:57 PM CDT) [facility] Method Time Signature Device BPAP [facility] Spont. 14 [facility] breaths/min [facility] pH 7.28 (L) 7.35 - [facility] 7.45 PH [facility] Base Excess 1 -2 - 2 [facility] MMOL/L [facility] O2Hb 94.2 94.0 - [facility] 98.0 % [facility] COHb 1.5 <3.0 % [facility] Arterial Art Line [facility] Sample Site [facility] FIO2 0.35 .21=AIR [facility] pO2 88 80 - 100 [facility] MM HG [facility] pCO2 61 (H) 35 - 45 [facility] MM HG [facility] HCO3 27 (H) 22 - 26 [facility] MMOL/L [facility] Hb 14.8 13.5 - [facility] 17.5 G/DL [facility] MetHb <1.0 <1.6 % [facility] CtO2 19.6 (L) 21.0 - [facility] 23.0 VOL LABORATORIES - % [facility] Specimen Anatomical Collection Method Collection Time Receive d Time (Source) Location / / Volume Laterality 11/22/2014 6:57 PM 5 6:57 CDT PM CDT Nathalie Cosby R.N. LAB BLOOD NON ADD-ON Performing Organization Address City/State/ZIP Code Phon e Number [facility] LABORATORIES - [address] [place], [place] [address] [facility] (ABNORMAL) Blood Gas with Coox, Arterial (11/22/2014 4:31 PM CDT) [facility] gist Method Time Signature Arterial Art Line [facility] Sample Site [facility] FIO2 0.35 .21=AIR [facility] pO2 82 80 - 100 [facility] MM HG [facility] pCO2 69 (H) 35 - 45 [facility] MM HG [facility] pH 7.23 (L) 7.35 - [facility] 7.45 PH [facility] Base Excess 1 -2 - 2 [facility] MMOL/L [facility] HCO3 28 (H) 22 - 26 [facility] MMOL/L [facility] Hb 14.5 13.5 - [facility] 17.5 G/DL [facility] O2Hb 93.2 (L) 94.0 - [facility] 98.0 % LABORATORIES - [facility] COHb 1.0 <3.0 % [facility] LABORATORIES [facility] Device BPAP [facility] - [facility] Spont[facility] 14 [facility] breaths/min [facility] - [facility] MetHb <1.0 <1.6 % [facility] CtO2 19.0 (L) 21.0 - [facility] 23.0 VOL LABORATORIES - % [facility] Specimen Anatomical Collection Method Collection Time Receive d Time (Source) Location / / Volume Laterality 11/22/2014 4:31 PM 5 4:31 CDT PM CDT Radha Peña APRN, C.N.P. LAB BLOOD NON ADD-ON Performing Organization Address City/[facility]/ZIP Code Phon e Number [facility] LABORATORIES - [address] [place] [phone] [facility] Magnesium (11/22/2014 4:31 PM CDT) P athologist Signature Magnesium, S 1.8 1.7 - 2.3 [facility] MG/DL [facility] Specimen Anatomical Collection Method Collection Time Receive d Time (Source) Location / / Volume Laterality 11/22/2014 4:31 PM 5 4:31 CDT PM CDT Radha Peña APRN, C.N.P. LAB BLOOD ADD-ON Performing Organization Address City/State/[facility] Code Phon e Number [facility] LABORATORIES - [address] [address] [facility] (ABNORMAL) CBC without Differential (11/22/2014 4:31 PM CDT) Patholo gist Method Time Signature Erythrocytes 4.85 4.32 - [facility] 5.72 LABORATORIES - X10(12)/L [facility] MCV 94.2 81.2 - [facility] 95.1 FL [facility] Hemoglobin 14.2 13.5 - [facility] 17.5 G/DL [facility] - [facility] Hematocrit 45.7 38.8 - [facility] 50.0 % [facility] RBC Distrib 16.5 (H) 11.8 - [facility] Width 15.6 % [facility] Platelet Count 166 150 - 450 [facility] X10(9)/L LABORATORIES - [facility] Leukocytes 15.5 (H) 3.5 - [facility] 10.5 LABORATORIES - X10(9)/L [facility] Specimen Anatomical Collection Method Collection Time Receive d Time (Source) Location / / Volume Laterality 11/22/2014 4:31 PM 5 4:31 CDT PM CDT Radha Peña APRN, C.N.P. LAB BLOOD ADD-ON Performing Organization Address City/[facility] Code Phon e Number [facility] LABORATORIES - [address] [place] [phone] [facility] (ABNORMAL) Electrolyte (Chem 4) Panel (11/22/2014 4:31 PM CDT) [facility] Method Time Signature Chloride, S 96 (L) 98 - 107 [facility] MMOL/L LABORATORIES - [facility] HX Bicarbonate, 26 22 - 29 [facility] P/S MMOL/L LABORATORIES - [facility] eGFR-Black/Afri 30 (L) >60 [facility] can Uzbek ML/MIN/BS LABORATORIES - A [facility] BUN (Blood Urea 52 (H) 8 - 24 [facility] Nitrogen), S MG/DL LABORATORIES - [facility] Sodium, S 136 135 - 145 [facility] MMOL/L LABORATORIES - [facility] Potassium, S 5.8 (H) 3.6 - 5.2 [facility] MMOL/L LABORATORIES - [facility] Creatinine 2.7 (H) 0.8 - 1.3 [facility] MG/DL LABORATORIES - [facility] eGFR 25 (L) >60 [facility] Non-Black/Afric ML/MIN/BS LABORATORIES - an Uzbek A [facility] Anion Gap 14 7 - 15 [facility] LABORATORIES - [facility] Glucose, S 145 (H) 70 - 140 [facility] MG/DL LABORATORIES - [facility] Specimen Anatomical Collection Method Collection Time Receive d Time (Source) Location / / Volume Laterality 11/22/2014 4:31 PM 5 4:31 CDT PM CDT Radha Peña APRN, C.N.P. LAB BLOOD ADD-ON Performing Organization Address City/State/ZIP Code Phon e Number [facility] LABORATORIES - [address] [place], [place] [address] [facility] Lactate (11/22/2014 4:31 PM CDT) athologist Signature Lactate, P 0.9 0.6 - 2.3 [facility] MMOL/L LABORATORIES - [facility] Specimen Anatomical Collection Method Collection Time Receive d Time (Source) Location / / Volume Laterality 11/22/2014 4:31 PM 5 4:31 CDT PM CDT Radha Peña APRN, C.N.P. LAB BLOOD NON ADD-ON Performing Organization Address City/[facility]/ZIP Code Phon e Number [facility] LABORATORIES - [address] [address] [facility] (ABNORMAL) Phosphorus Inorganic (11/22/2014 4:31 PM CDT) [facility] Method Time Signature Phosphorus 7.0 (H) 2.5 - 4.5 [facility] (Inorganic), S MG/DL LABORATORIES - [facility] Specimen Anatomical Collection Method Collection Time Receive d Time (Source) Location / / Volume Laterality 11/22/2014 4:31 PM 5 4:31 CDT PM CDT Radha Peña APRN, C.N.P. LAB BLOOD ADD-ON Performing Organization Address City/[facility]/ZIP Code Phon e Number [facility]IES - [address] [address] [facility] Calcium, Ionized (11/22/2014 4:31 PM CDT) athologist Signature Calcium, 4.70 4.65 - [facility] Ionized, B 5.30 MG/DL LABORATORIES - [facility] Specimen Anatomical Collection Method Collection Time Receive d Time (Source) Location / / Volume Laterality 11/22/2014 4:31 PM 5 4:31 CDT PM CDT Radha Peña APRN, C.N.P. LAB BLOOD NON ADD-ON Performing Organization Address City/[facility]/ZIP Code Phon e Number [facility] LABORATORIES - [address] [address] [facility] Glucose, POCT (11/22/2014 4:21 PM CDT) [facility] gist Method Time Signature Glucose, POCT, 133 70 - 140 [facility] B MG/DL LABORATORIES - [facility] Sample Site, ARTLINE [facility] Blood Gas, LABORATORIES - POCT [facility] Specimen Anatomical Collection Method Collection Time Receive d Time (Source) Location / / Volume Laterality 11/22/2014 4:21 PM 5 4:21 CDT PM CDT Historical Provider LAB POCT ORDERABLES-MANUAL Performing Organization Address City/[facility]/ZIP Code Phon e Number [facility] LABORATORIES - [address] [place], [place] [address] [facility] (ABNORMAL) Glucose, POCT (11/22/2014 3:32 PM CDT) [facility] gist Method Time Signature Glucose, POCT, 147 (H) 70 - 140 [facility] B MG/DL LABORATORIES - [facility] Sample Site, [facility] Blood Gas, LABORATORIES - POCT [facility] Specimen Anatomical Collection Method Collection Time Receive d Time (Source) Location / / Volume Laterality 11/22/2014 3:32 PM 5 3:32 CDT PM CDT Historical Provider LAB POCT ORDERABLES-MANUAL Performing Organization Address City/[facility]/ZIP Code Phon e Number [facility] LABORATORIES - [address] [place], [place] [address] [facility] (ABNORMAL) Glucose, POCT (11/22/2014 3:06 PM CDT) [facility] Method Time Signature Glucose, POCT, 164 (H) 70 - 140 [facility] B MG/DL LABORATORIES - [facility] Sample Site, [facility] Blood Gas, LABORATORIES - POCT [facility] Specimen Anatomical Collection Method Collection Time Receive d Time (Source) Location / / Volume Laterality 11/22/2014 3:06 PM 5 3:06 CDT PM CDT Historical Provider LAB POCT ORDERABLES-MANUAL Performing Organization Address City/[facility]/ZIP Code Phon e Number [facility] LABORATORIES - [address] [place], [place] [address] [facility] (ABNORMAL) Blood Gas with Coox, Arterial (11/22/2014 2:32 PM CDT) [facility] Method Time Signature Arterial Art Line [facility] Sample Site [facility] FIO2 0.50 .21=AIR [facility] pO2 109 (H) 80 - 100 [facility] MM HG [facility] pCO2 71 (H) 35 - 45 [facility] MM HG [facility] HCO3 30 (H) 22 - 26 [facility] MMOL/L LABORATORIES [facility] Hb 14.3 13.5 - [facility] 17.5 G/DL [facility] MetHb <1.0 <1.6 % [facility] LABORATORIES [facility] CtO2 19.5 (L) 21.0 - [facility] 23.0 VOL LABORATORIES - % [facility] Device BPAP [facility] Spont. 20 [facility] breaths/min [facility] pH 7.22 (L) 7.35 - [facility] 7.45 PH [facility] Base Excess 2 -2 - 2 [facility] MMOL/L [facility] O2Hb 96.1 94.0 - [facility] 98.0 % [facility] COHb 1.1 <3.0 % [facility] Specimen Anatomical Collection Method Collection Time Receive d Time (Source) Location / / Volume Laterality 11/22/2014 2:32 PM 5 2:32 CDT PM CDT Berkley Kaufman M.D. LAB BLOOD NON ADD-ON Performing Organization Address City/State/ZIP Code Phon e Number [facility] LABORATORIES - [address] [place] [address] [facility] (ABNORMAL) Glucose, POCT (11/22/2014 2:31 PM CDT) [facility] Method Time Signature Glucose, POCT, 166 (H) 70 - 140 [facility] B MG/DL [facility] Sample Site, ARTLINE [facility] Blood Gas, LABORATORIES - POCT [facility] Specimen Anatomical Collection Method Collection Time Receive d Time (Source) Location / / Volume Laterality 11/22/2014 2:31 PM 5 2:31 CDT PM CDT Historical Provider LAB POCT ORDERABLES-MANUAL Performing Organization Address City/[facility]/ZIP [facility] Phon e Number [facility] LABORATORIES - [address] [place] [address] [facility] (ABNORMAL) BMP (Basic Metabolic Panel) (11/22/2014 12:27 PM CDT) [facility] Method Time Signature Creatinine 2.5 (H) 0.8 - 1.3 [facility] MG/DL [facility] eGFR 27 (L) >60 [facility] Non-Black/Afric ML/MIN/BS LABORATORIES - an Uzbek A [facility] HX Bicarbonate, 28 22 - 29 [facility] P/S MMOL/L LABORATORIES - [facility] Glucose, S 138 70 - 140 [facility] MG/DL LABORATORIES - [facility] Sodium, P 135 135 - 145 [facility] MMOL/L LABORATORIES - [facility] Chloride, S 95 (L) 98 - 107 [facility] MMOL/L LABORATORIES - [facility] eGFR-Black/Afri 32 (L) >60 [facility] can [place] ML/MIN/BS LABORATORIES - A [facility] BUN (Blood Urea 52 (H) 8 - 24 [facility] Nitrogen), S MG/DL LAB[facility] - [facility] Anion Gap 12 7 - 15 [facility] - [facility] Potassium, P 6.3 (>) 3.6 - 5.2 [facility] MMOL/L LAB[facility] - [facility] Specimen Anatomical Collection Method Collection Time Receive d Time (Source) Location / / Volume Laterality 11/22/2014 12:27 11/22/2014 PM CDT 12:27 PM CDT [place] Gomez M.D. LAB BLOOD ADD-ON Performing Organization Address City/State/ZIP Code Phon e Number [facility] - [address] [address] [facility] ECG 12 Lead (11/22/2014 12:14 PM CDT) Specimen (Source) Anatomical Collection Method Collection Time Re ceived Time Location / / Volume Laterality 11/22/2014 12:14 PM CDT [facility] [place] RADIOLOGY SYSTEM - 11/22/2014 1:04 PM CDT 22Nov2014 12:14 VENTRICULAR RATE 53 Atrial flutter with 4:1 A-V conduction Right bundle branch block Left anterior fascicular block Bifascicular block No previous ECGs available [id number]^CARL ??^GLORIA Graham Procedure Note Gloria May M.D., M.B. - 11/27/2017F ormatting of this note might be different from the original. 22Nov2014 12:14 VENTRICULAR RATE 53 Atrial flutter with 4:1 A-V conduction Right bundle branch block Left anterior fascicular block Bifascicular block No previous ECGs available [id number]^CARL MENDEZ^GLORIA Graham Emelia Gay, PNoe M.S. ECG ORDERABLES Performing Organization Address City/State/ZIP Code Phon e Number HX [facility] RADIOLOGY SYSTEM [address] [place] [address], U SA (ABNORMAL) Blood Gas without Coox, Arterial (11/22/2014 12:12 PM CDT) [facility] gist Method Time Signature Arterial R-Radial [facility] Sample Site [facility] FIO2 0.40 .21=AIR [facility] pO2 78 (L) 80 - 100 [facility] MM HG [facility] pCO2 67 (H) 35 - 45 [facility] MM HG [facility] pH 7.24 (L) 7.35 - [facility] 7.45 PH [facility] Base Excess 1 -2 - 2 [facility] MMOL/L [facility] HCO3 28 (H) 22 - 26 [facility] MMOL/L [facility] Device CFM [facility] Spont. 16 [facility] breaths/min [facility] Specimen Anatomical Collection Method Collection Time Receive d Time (Source) Location / / Volume Laterality 11/22/2014 12:12 11/22/2014 PM CDT 12:12 PM CDT Ana Gomez M.D. LAB BLOOD NON ADD-ON Performing Organization Address City/State/ZIP Code Phon e Number [facility] - [address] [place], [place] [address] [facility] DX Chest Portable 1 View (11/22/2014 12:05 PM CDT) Anatomical Region Laterality Modality Chest N/A Radiographic Imaging Specimen (Source) Anatomical Collection Method Collection Time Re ceived Time Location / / Volume Laterality 11/22/2014 12:05 PM CDT Impressions 11/22/2014 12:08 PM CDT Shallow inspiration. Perihilar consolidation possibly representing atelectasis or infiltrate. Chest otherwise negative. Electronically signed by: ?? Cuauhtemoc Denton M.D. [id number] 22-Nov-2014 12:08 Narrative 11/22/2014 12:08 PM CDT [...] negative. Electronically signed by: Cuauhtemoc Denton M.D. [id number] 22-Nov-2014 12:08 Emelia Gay, Kristyn., M.S. IMG DIAGNOSTIC IM AGING PROCEDURES (ABNORMAL) Glucose, POCT (11/22/2014 11:00 AM CDT) [facility] Method Time Signature Glucose, POCT, 141 (H) 70 - 140 [facility] B MG/DL [facility] Specimen Anatomical Collection Method Collection Time Receive d Time (Source) Location / / Volume Laterality 11/22/2014 11:00 11/22/2014 AM CDT 11:00 AM CDT Historical Provider LAB POCT ORDERABLES-MANUAL Performing Organization Address City/State/ZIP Code Phon e Number [facility] - [address] [address] [facility] (ABNORMAL) Electrolyte (Chem 4) Panel (11/22/2014 9:00 AM CDT) [facility] Method Time Signature Chloride, S 95 (L) 98 - 107 [facility] MMOL/L [facility] HX Bicarbonate, 25 22 - 29 [facility] P/S MMOL/L [facility] Creatinine 2.4 (H) 0.8 - 1.3 [facility] MG/DL [facility] eGFR 28 (L) >60 [facility] Non-Black/Afric ML/MIN/BS LABORATORIES - an Uzbek A [facility] Anion Gap 16 (H) 7 - 15 [facility] Glucose, S 130 70 - 140 [facility] MG/DL [facility] Sodium, S 136 135 - 145 [facility] MMOL/L [facility] Potassium, S 6.8 (>) 3.6 - 5.2 [facility] MMOL/L [facility] eGFR-Black/Afri 34 (L) >60 [facility] can Uzbek ML/MIN/BS LABORATORIES - A [facility] BUN (Blood Urea 48 (H) 8 - 24 [facility] Nitrogen), S MG/DL [facility] Specimen Anatomical Collection Method Collection Time Receive d Time (Source) Location / / Volume Laterality 11/22/2014 9:00 AM 5 9:00 CDT AM CDT Eric Hess M.D. LAB BLOOD ADD-ON Performing Organization Address City/[facility] Phon e Number [facility] - [address], [place] [address] [facility] (ABNORMAL) Blood Gas without Coox, Arterial (11/22/2014 7:15 AM CDT) [facility] Delivery Hero Method Time Signature Device CFM [facility] pO2 56 (L) 80 - 100 [facility] MM HG [facility] pCO2 81 (H) 35 - 45 [facility] MM HG [facility] pH 7.19 (L) 7.35 - [facility] 7.45 PH [facility] Base Excess 2 -2 - 2 [facility] MMOL/L [facility] HCO3 31 (H) 22 - 26 [facility] MMOL/L [facility] Arterial R-Radial [facility] Sample Site [facility] - [facility] FIO2 0.70 .21=AIR [facility] Specimen Anatomical Collection Method Collection Time Receive d Time (Source) Location / / Volume Laterality 11/22/2014 7:15 AM 5 7:15 CDT AM CDT Eric Hess M.D. LAB BLOOD NON ADD-ON Performing Organization Address City/[facility] Code Phon e Number [facility] - [address], [place] [address] [facility] (ABNORMAL) Glucose, POCT (11/22/2014 6:14 AM CDT) [facility] Delivery Hero Method Time Signature Glucose, 157 (H) 70 - 140 [facility] POCT, B MG/DL [facility] - [facility] Sample Site, Capillary [facility] Blood Gas, LABORATORIES - POCT [facility] Last Intake NPO [facility] Specimen Anatomical Collection Method Collection Time Receive d Time (Source) Location / / Volume Laterality 11/22/2014 6:14 AM 5 6:14 CDT AM CDT Historical Provider LAB POCT ORDERABLES-MANUAL Performing Organization Address City/State/ZIP Code Phon e Number [facility] - [address] [address] [facility] (ABNORMAL) Blood Gas without Coox, Arterial (11/22/2014 12:23 AM CDT) [facility] Method Time Signature Device OFM [facility] pO2 60 (L) 80 - 100 [facility] MM HG [facility] Arterial L-Radial [facility] Sample Site [facility] O2 Flow 10.0 L/MIN [facility] pCO2 70 (H) 35 - 45 [facility] MM HG [facility] pH 7.25 (L) 7.35 - [facility] 7.45 PH [facility] Base Excess 3 (H) -2 - 2 [facility] MMOL/L [facility] HCO3 30 (H) 22 - 26 [facility] MMOL/L [facility] Specimen Anatomical Collection Method Collection Time Receive d Time (Source) Location / / Volume Laterality 11/22/2014 12:23 11/22/2014 AM CDT 12:23 AM CDT Berkley Kaufman M.D. LAB BLOOD NON ADD-ON Performing Organization Address City/State/ZIP Code Phon e Number [facility] - [address] [address] [facility] (ABNORMAL) Glucose, POCT (11/21/2014 10:09 PM CDT) [facility] Method Time Signature Glucose, 164 (H) 70 - 140 [facility] POCT, B MG/DL [facility] Sample Site, Capillary [facility] Blood Gas, LABORATORIES - POCT [facility] Last Intake NPO [facility] Specimen Anatomical Collection Method Collection Time Receive d Time (Source) Location / / Volume Laterality 11/21/2014 10:09 11/21/2014 PM CDT 10:09 PM CDT Historical Provider LAB POCT ORDERABLES-MANUAL Performing Organization Address City/State/ZIP Code Phon e Number [facility] - [address] [address] [facility] (ABNORMAL) Glucose, POCT (11/21/2014 6:10 PM CDT) [facility] Method Time Signature Glucose, POCT, 156 (H) 70 - 140 [facility] B MG/DL [facility] Specimen Anatomical Collection Method Collection Time Receive d Time (Source) Location / / Volume Laterality 11/21/2014 6:10 PM 5 6:10 CDT PM CDT Historical Provider LAB POCT ORDERABLES-MANUAL Performing Organization Address City/[facility] Code Phon e Number [facility] - [address] [place], [place] [address] [facility] (ABNORMAL) Glucose, POCT (11/21/2014 2:03 PM CDT) [facility] Signature Glucose, 173 (H) 70 - 140 [facility] POCT, B MG/DL LABORATORIES [facility] Sample Site, Capillary [facility] Blood Gas, LABORATORIES - POCT [facility] Last Intake > 4 hours [facility] Specimen Anatomical Collection Method Collection Time Receive d Time (Source) Location / / Volume Laterality 11/21/2014 2:03 PM 5 2:03 CDT PM CDT Historical Provider LAB POCT ORDERABLES-MANUAL Performing Organization Address City/[facility]/ZIP Code Phon e Number [facility] - [address] [address] [facility] (ABNORMAL) Glucose, POCT (11/21/2014 1:15 PM CDT) [facility] Method [place] Signature Glucose, 151 (H) 70 - 140 [facility] POCT, B MG/DL [facility] Sample Site, Capillary [facility] Blood Gas, LABORATORIES - POCT [facility] Specimen Anatomical Collection Method Collection Time Receive d Time (Source) Location / / Volume Laterality 11/21/2014 1:15 PM 5 1:15 CDT PM CDT Historical Provider LAB POCT ORDERABLES-MANUAL Performing Organization Address City/[facility] Phon e Number [facility] - [address] [place], [place] [address] [facility] Glucose, POCT (11/21/2014 11:46 AM CDT) [facility] Method [place] Signature Glucose, 140 70 - 140 [facility] POCT, B MG/DL LABORATORIES - [facility] Sample Site, Capillary [facility] Blood Gas, LABORATORIES - POCT [facility] Specimen Anatomical Collection Method Collection Time Receive d Time (Source) Location / / Volume Laterality 11/21/2014 11:46 11/21/2014 AM CDT 11:46 AM CDT Nuno Sawant M.D. LAB POCT ORDERABLES-MANUAL Performing Organization Address [facility] Phon e Number [facility] - [address] [address] [facility] Glucose, POCT (11/21/2014 10:43 AM CDT) P athologist Signature Glucose, POCT, 113 70 - 140 [facility] B MG/DL LABORATORIES - [facility] Specimen Anatomical Collection Method Collection Time Receive d Time (Source) Location / / Volume Laterality 11/21/2014 10:43 11/21/2014 AM CDT 10:43 AM CDT Historical Provider LAB POCT ORDERABLES-MANUAL Performing Organization Address City/[facility] Phon e Number [facility] - [address] [place], [place] [address] [facility] Glucose, POCT (11/21/2014 9:46 AM CDT) P athologist Signature Glucose, POCT, 115 70 - 140 [facility] B MG/DL LABORATORIES - [facility] Specimen Anatomical Collection Method Collection Time Receive d Time (Source) Location / / Volume Laterality 11/21/2014 9:46 AM 5 9:46 CDT AM CDT Historical Provider LAB POCT ORDERABLES-MANUAL Performing Organization Address City/[facility] Phon e Number [facility] - [address] [place], [place] [address] [facility] (ABNORMAL) Glucose, POCT (11/21/2014 8:43 AM CDT) Patholo gist Method Time Signature Glucose, 64 (L) 70 - 140 [facility] POCT, B MG/DL LABORATORIES - [facility] Sample Site, Capillary [facility] Blood Gas, LABORATORIES - POCT [facility] Specimen Anatomical Collection Method Collection Time Receive d Time (Source) Location / / Volume Laterality 11/21/2014 8:43 AM 5 8:43 CDT AM CDT Nuno Sawant M.D. LAB POCT ORDERABLES-MANUAL Performing Organization Address City/[facility]/ZIP Code Phon e Number [facility] - [address] [address] [facility] Glucose, POCT (11/21/2014 7:26 AM CDT) [facility] Delivery Hero Method Time Signature Last Intake NPO [facility] Glucose, 91 70 - 140 [facility] POCT, B MG/DL LABORATORIES - [facility] Sample Site, Capillary [facility] Blood Gas, LABORATORIES - POCT [facility] Specimen Anatomical Collection Method Collection Time Receive d Time (Source) Location / / Volume Laterality 11/21/2014 7:26 AM 5 7:26 CDT AM CDT Historical Provider LAB POCT ORDERABLES-MANUAL Performing Organization Address City/[facility] Code Phon e Number [facility] - [address] [place], [place] [address] [facility] (ABNORMAL) Glucose, POCT (11/21/2014 6:57 AM CDT) [facility] Delivery Hero Method Time Signature Last Intake > 4 hours [facility] Glucose, 61 (L) 70 - 140 [facility] POCT, B MG/DL LABORATORIES - [facility] Sample Site, Capillary [facility] Blood Gas, LABORATORIES - POCT [facility] Specimen Anatomical Collection Method Collection Time Receive d Time (Source) Location / / Volume Laterality 11/21/2014 6:57 AM 5 6:57 CDT AM CDT Historical Provider LAB POCT ORDERABLES-MANUAL Performing Organization Address City/[facility]/ZIP Code Phon e Number [facility] - [address] [address] [facility] documented in this encounter Visit Diagnoses Not on filedocumented in this encounter Additional Health Concerns Assessment Noted Time PHQ-9 Depression Total Score: 18 02/14/2013 9:53 AM CD T documented as of this encounter
--- OUTSIDE RECORDS SUMMARY | 2022-08-12 09:26 | XMS_ITS | Encounter Summary ---
:1960 Author Organization [facility] Address [address] [place] [address] Care Team Providers Name Role Phone Unavailable Primary Care Provider Unavailable Encounter Details Date Type Department Care Team Description 10/24/2014 Hospital Encounter [facility]X [facility]ILY ID Cintia Aguirre M.D. [address] [place] [phone] (Wo rk) Social History Tobacco Use Types Packs/Day Years Used Date Smoking Tobacco: Never Assessed Sex Assigned at Date Recorded Not on file documented as of this encounter Last Filed Vital Signs Vital Sign Reading Time Taken Comments Blood Pressure 151/80 10/24/2014 6:00 PM [employer] Pulse 46 10/24/2014 6:00 PM [employer] Temperature - - Respiratory Rate 16 10/24/2014 6:00 PM [employer] Oxygen Saturation - - Inhaled Oxygen Concentration - - Weight 155 kg (341 lb 11.4 oz) 10/24/2014 6:00 PM [employer] Height 185 cm (6' 0.84) 10/24/2014 6:00 PM [employer] Body Mass Index 45.29 10/24/2014 6:00 PM [employer] documented in this encounter Progress Notes Cintia Cobb M.D. - 10/24/2014 5:28 AM CST Clinic Full Note CHIEF COMPLAINT/REASON FOR VISIT Review some stuff with Dr. Song HISTORY OF PRESENT ILLNESS Ed is a 54 year old male who presents today to follow up on recent visit to the [facility] bariatric surgery program. He reports that this appointment went okay. He also saw a dietitian and they will be getting records from [facility] prior to scheduling an appt with the surgeon. They think he would be a good candidate for the gastric sleeve. Patient is interested in this because the recovery time would be shorter than the gastric bypass procedure. He states that he cannot afford to be off work for that long. He has follow up with [facility] to review bariatric surgery options tomorrow. He [...] Lab Hgb A1c 7.2 % 10/03/2014 10:30 [employer] Outside Lab Creatinine (Serum) 1.34 mg/dL 10/03/2014 10:30 [employer] IMPRESSION/REPORT/PLAN 1. DM2 Blood sugars continue to [...] Ordered: OV Est Pt Level 4 - 66365 - 25 min 2. Obesity Medically Complicated We reviewed the note from [facility]. They need [facility]'s records and I have asked him to follow up to ensure that has happened. Also reviewed that he needs to get down to a weight of 331. Recommended that he review the sleeve option with [facility] at his appointment tomorrow. Ordered: OV Est Pt Level 4 - 72793 - 25 min 3. Hypertension HTN NOS Blood pressure still a little high. Ordered: OV Est Pt Level 4 - 33232 - 25 min 4. Insufficiency Renal NOS Creatinine a little elevated with increased diuretic dose, but stable. He does showing spilling of protein into his urine. Ordered: OV Est Pt Level 4 - 13896 - 25 min 5. Edema Pedal Recommended that he wear his compressive stockings daily, but take them off at night. Recommended using dish gloves to put them on. Ordered: OV Est Pt Level 4 - 74640 - 25 min Electronically Signed By: CINTIA KILGORE MD On: 10/25/2014 05:33 AM Source: [email or web address] POWERCHART Document Id: [id number] [employer] documented in this encounter Miscellaneous Notes Miscellaneous - Cintia Cobb M.D. - 10/24/2014 6:48 PM [employer] Ambulatory Patient Summary [address] [id number] Visit Information Name: LAZ LUNA [facility] Number: [id number] Current Date: 10/24/2014 18:48:50 Physicians [...] appointment detail needed. Your Goals/Additional instructions: Source: [facility] POWERCHART Document Id: [id number] [employer] LEAD Miscellaneous - Cintia Cobb M.D. - 10/24/2014 6:48 PM [employer] Ambulatory Discharge Medication List [address] [place], [place] [phone] Visit Information Name: LAZ LUNA [facility] Number: [id number] Visit Date: 10/24/2014 18:48:48 Attending [...] MD Signed On:24-OCT-2014 18:48:34 Additional Information: Source: [facility] POWERCHART Document Id: [id number] [employer]AD Miscellaneous - Shawnee Haji L.P.N. 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 Song Temperature Core : 35.6 DegC(Converted to: 96.1 DegF) (LOW) Peripheral Pulse Rate : 46 /min (<LLOW) Respiratory Rate : 16 /min Systolic Blood Pressure : 151 mmHg (HI) Diastolic Blood Pressure : 80 mmHg NIBP Mean : 104 mmHg SpO2 : 96 % SHAWNEE HAJI LPN - 10/24/2014 18:05 [employer] Heart Rhythm : Regular BP Location : [...] kg/m2 SHAWNEE HAJI LPN - 10/24/2014 18:00 [employer] General Info Information Given By : Patient Preferred Communication Mode : Verbal Languages : Yemeni Is Patient Female and 13-50 no hysterectomy : No SHAWNEE HAJI LPN - 10/24/2014 18:00 [employer] Subjective Pain Symptoms : No SHAWNEE HAJI LPN - 10/24/2014 18:00 [employer]AD Dependent Habits Tobacco Use/Currently Using : No Tobacco Use/Last 12 months : No Tobacco Use/Advised to Quit : No Exposure to Tobacco Smoke : Care provider denies smoking in home Smoking Status : Never smoker SHAWNEE HAJI LPN - 10/24/2014 18:00 [employer] Tobacco Use Grid Last Use : never SHAWNEE HAJI LPN - 10/24/2014 18:00 [employer] Alcohol Use : No SHAWNEE HAJI LPN - 10/24/2014 18:00 [employer]AD Caffeine Use Grid Caffeine Use : Current Type : Coffee, Soft drinks Frequency : Weekly Amount : soda- weekly; coffee- 1x/week SHAWNEE HAJI LPN - 10/24/2014 18:00 [employer] Recreational Drug Use Grid Drug Use : None SHAWNEE HAJI LPN - 10/24/2014 18:00 [employer]ING [employer] LEAD ID Screen Drug Resistant Organism : No Travel Within Last 21 Days : No SHAWNEE HAJI LPN - 10/24/2014 18:00 MARKETING PROJECT LEAD Source: [employer] Document Id: [id number] MARKETING PROJECT LEAD!10 ETING PROJECT LEAD documented in this encounter Plan of Treatment Not on filedocumented as of this encounter Visit Diagnoses Not on filedocumented in this encounter Additional Health Concerns Assessment Noted Time PHQ-9 Depression Total Score: 18 02/14/2013 9:53 AM CD T documented as of this encounter
--- OUTSIDE RECORDS SUMMARY | 2022-08-12 09:27 | XMS_ITS | Encounter Summary ---
:1960 Author Organization [facility] Address [address] [place] [address] Care Team Providers Name Role Phone Unavailable Primary Care Provider Unavailable Encounter Details Date Type Department Care Team Description 12/15/2013 Hospital Encounter [facility] Song Cintia Jorgensen M.D. [address] [place] [phone] (wo rk) Social History Tobacco Use Types [...] 12/15/2013 7:18 PM CDT Ambulatory Patient Summary [id number] [place], [place] [id number] Visit Information Name: LAZ LUNA [facility] Number: [id number] Current Date: 12/15/2013 19:18:44 [...] Date Time Location Reason Provider 12/19/2013 17:00 [facility] PT/OT rt shoulder impingment Rahel Donaldson 12/21/2013 18:00 [facility] PT/OT rt shoulder impingment Ade Gandhi 01/17/2014 15:30 [facility] Follow up Shoulder Ester MENDEZ, John Lindsay Attention: Contact your local Clinic if further appointment detail needed. Your Goals/Additional instructions: Source: [facility] POWERCHART Document Id: [id number] Miscellaneous - Cintia Cobb M.D. - 12/15/2013 7:18 PM CDT Ambulatory Discharge Medication List [id number] [place], [place] [phone] Visit Information Name: LAZ LUNA [facility] Number: [id number] Visit Date: 12/15/2013 19:18:42 [...] MD Signed On:15-DEC-2013 19:18:26 Additional Information: Source: [facility] Capsule Tech Document Id: [id number] Osbaldo - Anne Marie Tuttle L.P.N. - [...] LPN, RT - 12/15/2013 17:38 CDT Source: [facility] [employer] Document Id: [id number] CDT!7 Anne Marie Dasilva L.P.N. - 12/15/2013 5:28 PM CDT Adult Rotary Machine Operator Intake/History Adult Rotary Machine Operator Intake/History Entered On: 12/15/2013 17:34 CDT Performed [...] Given By : Patient Languages : Chinese ANNE MARIE TUTTLE LPN, RT - 12/15/2013 [...] LPN, RT - 12/15/2013 17:28 CDT Source: [employer] Document Id: [id number] CDT!41 documented in this encounter Plan of [...] Laterality Blood 12/15/2013 6:10 PM CDT Cintia Copleand M.D. LAB BLOOD ADD-ON Performing Organization Address City/State/ZIP Code Phon e Number POWERCHART CBC without Differential (12/15/2013 6:10 PM CDT) P athologist Signature Leukocytes 8.4 3.5 - 10.5 POWERCHART X109L Erythrocytes 4.93 4.32 - 5.72 POWERCHART [id number] Hemoglobin 15.0 13.5 - 17.5 POWERCHART GDL [...] POWERCHART MMOLL HXeGFR (MDRD) >60 >=60 POWERCHART [id number] eGFR >60 >=60 POWERCHART Black/ [id number] Zimbabwean Specimen (Source) Anatomical Collection Method Collection Time [...]
--- OUTSIDE RECORDS SUMMARY | 2022-08-12 09:27 | XMS_ITS | Encounter Summary ---
:1960 Author Organization [facility] Address [address] [place] [address] Care Team Providers Name Role Phone Unavailable Primary Care Provider Unavailable Encounter Details Date Type Department Care Team Description 01/04/2014 Hospital Encounter HX [facility] Cintia Cobb M.D. [address] [place] [phone] (Wo rk) Social History Tobacco Use [...] CDT From: ANA CRISTINA FERRELL RN To: CINITA KILGORE MD; Sent: 01/03/2014 12:25:10 CDT Subject: [...] for him to call to reschedule. Source: [facility] POWERCHART Document Id: [id number] Electronically signed by Dayami, [facility] Brake Shoe Rebuilder [id number] at 02/02/2017 9:41 PM CDT documented in this encounter Plan of Treatment Not on filedocumented as of this encounter Visit Diagnoses Not on filedocumented in this encounter Additional Health Concerns Assessment Noted Time PHQ-9 Depression Total Score: 18 02/14/2013 9:53 AM CD T documented as of this encounter
--- OUTSIDE RECORDS SUMMARY | 2022-08-12 09:27 | XMS_ITS | Encounter Summary ---
:1960 Author Organization [facility] Address [address] [place] [address] Care Team Providers Name Role Phone Unavailable Primary Care Provider Unavailable Encounter Details Date Type Department Care Team Description 07/13/2014 Hospital Encounter HX [facility] Liam Gutierrez M.D. [address] [place] [phone] (Wo rk) Social History Tobacco Use Types Packs/Day Years Used Date Smoking Tobacco: Never Assessed Sex Assigned at Date Recorded Not on file documented as of this encounter Last Filed Vital Signs Vital Sign Reading Time Taken Comments Blood Pressure 156/78 07/13/2014 9:15 AM PROFESSIONAL BONDSMAN Pulse 46 07/13/2014 9:15 AM PROFESSIONAL BONDSMAN Temperature - - Respiratory Rate - - Oxygen Saturation - - Inhaled Oxygen Concentration - - Weight - - Height 185 cm (6' 0.84) 07/13/2014 9:15 AM PROFESSIONAL BONDSMAN Body Mass Index - - documented in this encounter Consult Notes Amol Gutierrez M.D. - 07/13/2014 9:08 AM CST [facility] REFERRAL SOURCE Referral is from Dr. [...] GUTIERREZ MD On: 07/13/2014 01:28 PM Source: [facility] MHSDOLBEYNONRADSYS Document Id: [id number] ESSIONAL BONDSMAN documented in this encounter Miscellaneous Notes Miscellaneous - Mehreen Washington, RPiliN. - 07/13/2014 9:15 AM CST Adult Pmp Intake/History Document Has Been Updated Adult Pmp Intake/History Entered On: 07/13/2014 9:17 PROFESSIONAL BONDSMAN Performed On: 07/13/2014 9:15 PROFESSIONAL BONDSMAN by MEHREEN WASHINGTON cyber legal advisor Chief Complaint : Lowewr extremity edema and HTN Peripheral Pulse Rate : 46 /min (<LLOW) Systolic Blood Pressure : 156 mmHg (HI) Diastolic Blood Pressure : 78 mmHg NIBP Mean : 104 mmHg Height : 185 cm(Converted to: 6 ft 1 inch(es), 73 inch(es)) MEHREEN WASHINGTON RN - 07/13/2014 9:15 PROFESSIONAL BONDSMAN General Info Information Given By : Patient Languages : Bulgarian Is Patient Female and 13-50 no hysterectomy : No MEHREEN WASHINGTON RN - 07/13/2014 9:15 PROFESSIONAL BONDSMAN Subjective Pain Symptoms : No Cardiovascular Symptoms : Edema MEHREEN WASHINGTON RN - 07/13/2014 9:15 PROFESSIONAL BONDSMAN Dependent Habits Tobacco Use/Currently Using : No Smoking Status : Never smoker MEHREEN WASHINGTON RN - 07/13/2014 9:15 PROFESSIONAL BONDSMAN Tobacco Use Grid Last Use : never MEHREEN WASHINGTON RN - 07/13/2014 9:15 PROFESSIONAL BONDSMAN Alcohol Use : No MEHREEN WASHINGTON RN - 07/13/2014 9:15 PROFESSIONAL BONDSMAN Caffeine Use Grid Caffeine Use : Current Type : Coffee, Soft drinks Frequency : Weekly Amount : soda- weekly; coffee- 1x/week MEHREEN WASHINGTON RN - 07/13/2014 9:15 PROFESSIONAL BONDSMAN Recreational Drug Use Grid Drug Use : None MEHREEN WASHINGTON RN - 07/13/2014 9:15 PROFESSIONAL BONDSMAN Allergy (As Of: 07/13/2014 09:17:25 PROFESSIONAL BONDSMAN) Allergies (Active) Cipro Estimated Onset Date: Unspecified [...] : MEHREEN Engle RN - 07/13/2014 9:15 PROFESSIONAL BONDSMAN [facility] Document Id: [id number] PROFESSIONAL BONDSMAN!34 ESSIONAL BONDSMAN documented in this encounter Plan of Treatment Not on filedocumented as of this encounter Visit Diagnoses Not on filedocumented in this encounter Additional Health Concerns Assessment Noted Time PHQ-9 Depression Total Score: 18 02/14/2013 9:53 AM CD T documented as of this encounter
--- OUTSIDE RECORDS SUMMARY | 2022-08-12 09:27 | XMS_ITS | Encounter Summary ---
:1960 Author Organization [facility] Address [address] [place] [address] Care Team Providers Name Role Phone Unavailable Primary Care Provider Unavailable Encounter Details Date Type Department Care Team Description 08/24/2014 Hospital Encounter HX [facility] Cintia Aguirre M.D. [address] [place] [phone] (Wo rk) Social History Tobacco Use Types Packs/Day Years Used Date Smoking Tobacco: Never Assessed Sex Assigned at Date Recorded Not on file documented as of this encounter Last Filed Vital Signs Vital Sign Reading Time Taken Comments Blood Pressure 131/72 08/24/2014 6:30 PM TOLL PATROLMAN Pulse 49 08/24/2014 6:22 PM TOLL PATROLMAN Temperature - - Respiratory Rate - - Oxygen Saturation - - Inhaled Oxygen Concentration - - Weight 156 kg (343 lb 14.7 oz) 08/24/2014 6:22 PM TOLL PATROLMAN Height 185 cm (6' 0.84) 08/24/2014 6:30 PM TOLL PATROLMAN Body Mass Index 45.58 08/24/2014 6:22 PM TOLL PATROLMAN documented in this encounter Progress Notes Cintia Cobb M.D. - 08/24/2014 5:44 PM CST [id number] CHIEF COMPLAINT/REASON FOR VISIT Follow up diabetes. [...] him to a program perhaps at the [facility]. He is uncertain if insurance would approve [...] the bariatric surgery program up at the [facility], but I think he would likely have to start all the way at the beginning again and he has already completed all of that work with [facility]. I cer tainly respect his decision if that is where he prefers to go, but I strongly encouraged him to reconsider going to [facility] because I do feel that his problems are coming under control and his surgery was not necessarily canceled so much as postponed until we could get things to be a little more stable. The patient reports that he does not want to see the same surgeon but he would be willing to seeanother surgeon at [facility]. At this point, I will e-mail Dr. [...] have some questions about perhaps go to [facility] and cutting back on his insulin. I [...] KILGORE MD On: 09/04/2014 08:55 AM Source: [facility] MHSDOLBEYNONRADSYS Document Id: [id number] PATROLMAN documented in this encounter Miscellaneous Notes Miscellaneous - Cintia Cobb M.D. - 08/24/2014 6:59 PM TOLL PATROLMAN Ambulatory Patient Summary [address] [place] [phone] Visit Information Name: LAZ LUNA [facility] Number: [id number] Current Date: 08/24/2014 18:59:47 Physicians Attending Provider: CINITA KILGORE MD Primary Care Provider: CINTIA KILGORE [...] appointment detail needed. Your Goals/Additional instructions: Source: [facility] POWERCHART Document Id: [id number] PATROLMAN Miscellaneous - Cintia Cobb M.D. - 08/24/2014 6:59 PM TOLL PATROLMAN Ambulatory Discharge Medication List [address] [place] [id number] Visit Information Name: LAZ LUNA [facility] Number: [id number] Visit Date: 08/24/2014 18:59:45 Attending [...] MD Signed On:24-AUG-2014 18:59:28 Additional Information: Source: [facility] WorkshareCHART Document Id: [id number] PATROLMAN Miscellaneous - Anne Marie Tuttle L.P.N. - 08/24/2014 6:30 PM CST Ambulatory Vitals Height Weight Ambulatory Vitals Height Weight Entered On: 08/24/2014 18:31 TOLL PATROLMAN Performed On: 08/24/2014 18:30 TOLL PATROLMAN by ANNE MARIE TUTTLE LPN, RT Vitals/Ht/Wt Systolic Blood Pressure : 131 mmHg Diastolic Blood Pressure : 72 mmHg NIBP Mean : 92 mmHg BP Location : Left upper extremity Blood Pressure Cuff Size : Large Height : 185 cm(Converted to: 6 ft 1 inch(es), 73 inch(es)) ANNE MARIE TUTTLE LPN, RT - 08/24/2014 18:30 TOLL PATROLMAN Source: [facility] POWERCHART Document Id: [id number] TOLL PATROLMAN!8 PATROLMAN Miscellaneous - Anne Marie Tuttle L.P.NPili - 08/24/2014 6:22 PM CST Adult Senior Mechanical Design Engineer Intake/History Adult Senior Mechanical Design Engineer Intake/History Entered On: 08/24/2014 18:27 TOLL PATROLMAN Performed On: 08/24/2014 18:22 TOLL PATROLMAN by ANNE MARIE TUTTLE LPN, RT Intake [...] 2.83 Body Mass Index : 45.58 kg/m2 NANE MARIE TUTTLE LPN, RT - 08/24/2014 18:22 TOLL PATROLMAN General Info Information Given By : Patient Preferred Communication Mode : Verbal Languages : Syriac Is Patient Female and 13-50 no hysterectomy : No ANNE MARIE TUTTLE LPN, RT - 08/24/2014 18:22 TOLL PATROLMAN Subjective Pain Symptoms : No ANNE MARIE TUTTLE LPN, RT - 08/24/2014 18:22 TOLL PATROLMAN Dependent Habits Tobacco Use/Currently Using : No Smoking Status : Never smoker ANNE MARIE TUTTLE LPN, RT - 08/24/2014 18:22 TOLL PATROLMAN Tobacco Use Grid Last Use : never ANNE MARIE TUTTLE LPN, RT - 08/24/2014 18:22 TOLL PATROLMAN Caffeine Use Grid Caffeine Use : Current Type : Coffee, Soft drinks Frequency : Weekly Amount : soda- weekly; coffee- 1x/week ANNE MARIE TUTTLE LPN, RT - 08/24/2014 18:22 TOLL PATROLMAN Recreational Drug Use Grid Drug Use : None ANNE MARIE TUTTLE LPN, RT - 08/24/2014 18:22 TOLL PATROLMAN ID Screen Drug Resistant Organism : No Travel Within Last 21 Days : No ANNE MARIE TUTTLE LPN, RT - 08/24/2014 18:22 TOLL PATROLMAN Source: [employer] Document Id: [id number] TOLL PATROLMAN!41 PATROLMAN documented in this encounter Plan of Treatment Not on filedocumented as of this encounter Visit Diagnoses Not on filedocumented in this encounter Additional Health Concerns Assessment Noted Time PHQ-9 Depression Total Score: 18 02/14/2013 9:53 AM CD T documented as of this encounter
--- OUTSIDE RECORDS SUMMARY | 2022-08-12 09:27 | XMS_ITS | Encounter Summary ---
:1960 Author Organization [facility] Address [address] [place] [address] Care Team Providers Name Role Phone Unavailable Primary Care Provider Unavailable Encounter Details Date Type Department Care Team Description 12/07/2013 Hospital Encounter HX [facility] Cintia Aguirre M.D. [address] [place] [phone] (Wo rk) Social History Tobacco Use [...] Cobb M.D. - 12/07/2013 4:34 PM CDT [id number] CHIEF COMPLAINT/REASON FOR VISIT Followup blood pressure. [...] KILGORE MD On: 12/20/2013 09:48 PM Source: [facility] MHSDOLBEYNONRADSYS Document Id: [id number] documented in this encounter Miscellaneous Notes Miscellaneous [...] LPN, RT - 12/07/2013 17:36 CDT Source: [facility] POWERCHART Document Id: [id number] CDT!7 Miscellaneous - Cintia Cobb M.D. - 12/07/2013 5:28 PM CDT Ambulatory Patient Summary [address] [place], [place] [phone] Visit Information Name: LAZ LUNA [facility] Number: [id number] Current Date: 12/07/2013 17:28:39 Physicians [...] Oral, once a day New Routed to [address] [address] docusate-senna (Dok Plus) 2 Tablet(s), Oral, once a day furosemide (Lasix 20 mg oral tablet) 1 Tablet(s), Oral, once a day New Routed to [address] [address] hydrochlorothiazide (hydrochlorothiazide 25 mg oral [...] appointment detail needed. Your Goals/Additional instructions: Source: [facility] POWERCHART Document Id: [id number] Miscellaneous - Cintia Cobb M.D. - 12/07/2013 5:28 PM CDT Ambulatory Discharge Medication List [facility] [address] [facility] [place] [phone] Visit Information Name: LAZ LUNA [facility] Number: [id number] Visit Date: 12/07/2013 17:28:37 Attending [...] Oral, once a day New Routed to [address] [address] docusate-senna (Dok Plus) 2 Tablet(s), Oral, once a day furosemide (Lasix 20 mg oral tablet) 1 Tablet(s), Oral, once a day New Routed to [address] [address] hydrochlorothiazide (hydrochlorothiazide 25 mg oral [...] in case of emergency. Additional Information: Source: [facility] Document Id: [id number] Miscellaneous - Anne Marie Tuttle, L.P.N. - [...] LPN, RT - 12/07/2013 16:51 CDT Source: [facility] POWERCHART Document Id: [id number] CDT!7 Miscellaneous - Anne Marie Tuttle L.P.N. - 12/07/2013 4:39 PM CDT Adult Telephone Lineman Intake/History Adult Telephone Lineman Intake/History Entered On: 12/07/2013 16:42 CDT Performed [...] Communication Mode : Verbal Languages : Georgian ANNE MARIE TUTTLE LPN, RT - 12/07/2013 [...] MARIE TUTTLE LPN, 12/07/2013 16:39 CDT Source: [employer] Document Id: [id number] CDT!41 Miscellaneous - Conversion, Historical Provider Ser - 11/28/2013 1:13 PM CDT Med Management Document Contains Addenda Addendum by CINTIA KILGORE MD on 28 November 2013 14:12:59 CDT From: CINTIA KILGORE MD Sent: 11/28/2013 14:12:58 CDT Subject: RE:Med Management Approved Order:allopurinol (allopurinol 300 mg oral tablet) 1 tab(s) PO Daily Qty: 90 tab(s) Duration: 90 day(s) Refills: 3 Substitutions Allowed Route To [id number] Signed by CINTIA KILGORE MD 11/28/2013 14:12:53 From: OLIVIA BECERRA V To: CINTIA KILGORE MD; OLIVIA BECERRA V; Sent: 11/28/2013 13:13:19 CDT Subject: Med Management On hold pending signature Order:allopurinol (allopurinol 300 mg oral tablet) 1 tab(s) PO Daily Qty: 90 tab(s) Duration: 90 day(s) Refills: [address] To [id number] Source: [facility] POWERCHART Document Id: [id number] documented in this encounter Plan of Treatment Not on filedocumented as of this encounter Visit Diagnoses Not on filedocumented in this encounter Additional Health Concerns Assessment Noted Time PHQ-9 Depression Total Score: 18 02/14/2013 9:53 AM CD T documented as of this encounter
--- OUTSIDE RECORDS SUMMARY | 2022-08-12 09:27 | XMS_ITS | Encounter Summary ---
:1960 Author Organization [facility] Address [address] [place] [address] Care Team Providers Name Role Phone Unavailable Primary Care Provider Unavailable Encounter Details Date Type Department Care Team Description 12/16/2013 Hospital Encounter HX [facility] Cintia Aguirre M.D. [address] [place] [phone] (Wo rk) Social History Tobacco Use [...] Cobb M.D. 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 Source: [facility] POWERCHART Document Id: [id number] documented in this encounter Plan of Treatment Not on filedocumented as of this encounter Visit Diagnoses Not on filedocumented in this encounter Additional Health Concerns Assessment Noted Time PHQ-9 Depression Total Score: 18 02/14/2013 9:53 AM CD T documented as of this encounter
--- OUTSIDE RECORDS SUMMARY | 2022-08-12 09:27 | XMS_ITS | Encounter Summary ---
:1960 Author Organization [facility] Address [address] [place] [address] Care Team Providers Name Role Phone Unavailable [...] Suzi Hill - 02/07/2014 3:05 PM CDT [id number] Mr. Luna is a pleasant 53-year-old gentleman [...] have good motion both actively and passively. Oliver's test is equivocal. He does have painwhen [...] half that time was spent in direct szto-sm-sqoq counseling and educating the patient about his condition as well as treatment options that are available to him. Suzi Hill P.A.-C./caron Electronically Signed By: SUZI HILL PA-C On: 02/14/2014 02:48 PM Source: [facility] MHSDOLBEYNONRADSYS Document Id: [id number] documented in this encounter Miscellaneous Notes Miscellaneous - Suzi Hill - 02/07/2014 3:31 PM CDT Ambulatory Patient Summary [facility] [address] [phone] Visit Information Name: LAZ LUNA [facility] Number: [id number] Current Date: 02/07/2014 15:31:20 [...] appointment detail needed. Your Goals/Additional instructions: Source: [facility] POWERCHART Document Id: [id number] Miscellaneous - Suzi Hill - 02/07/2014 3:31 PM CDT Ambulatory Discharge Medication List [facility] [address] [place], [place] [phone] Visit Information Name: LAZ LUNA [facility] Number: [id number] Visit Date: 02/07/2014 15:31:18 [...] PA-C Signed On:07-FEB-2014 15:31:09 Additional Information: Source: [facility] POWERCHART Document Id: [id number] Miscellaneous - Lacie Donaldson R.N. - 02/07/2014 3:09 PM CDT Adult Epoxy Coatings Installer Intake/History Adult Epoxy Coatings Installer Intake/History Entered On: 02/07/2014 15:13 CDT Performed On: 02/07/2014 15:09 CDT by LACIE DONALDSON ornamental metal worker Chief Complaint : f/u right shoulder pain, [...] Preferred Communication Mode : Verbal Languages : Tristanian LACIE DONALDSON RN - 02/07/2014 15:09 CDT [...] DONALDSON RN - 02/07/2014 15:09 CDT Source: [employer] Document Id: [id number] CDT!39 documented in this encounter Plan of Treatment Not on filedocumented as of this encounter Visit Diagnoses Not on filedocumented in this encounter Additional Health Concerns Assessment Noted Time PHQ-9 Depression Total Score: 18 02/14/2013 9:53 AM CD T documented as of this encounter
--- OUTSIDE RECORDS SUMMARY | 2022-08-12 09:27 | XMS_ITS | Encounter Summary ---
:1960 Author Organization [facility] Address [address] [place] [address] Care Team Providers Name Role Phone Unavailable Primary Care Provider Unavailable Encounter Details Date Type Department Care Team Description 07/27/[address] [facility] Cintia Aguirre M.D. [address] [place] [phone] (Wo rk) Social History Tobacco Use Types Packs/Day Years Used Date Smoking Tobacco: Never Assessed Sex Assigned at Date Recorded Not on file documented as of this encounter Last Filed Vital Signs Vital Sign Reading Time Taken Comments Blood Pressure 154/78 07/27/2014 12:04 PM LIVE HANGER Pulse 49 07/27/2014 12:04 PM LIVE HANGER Temperature - - Respiratory Rate - - Oxygen Saturation - - Inhaled Oxygen Concentration - - Weight 164 kg (362 lb 7 oz) 07/27/2014 12:04 PM LIVE HANGER Height 185 cm (6' 0.84) 07/27/2014 12:04 PM LIVE HANGER Body Mass Index 48.03 07/27/2014 12:04 PM LIVE HANGER documented in this encounter Progress Notes Cintia Cobb M.D. - 07/27/2014 11:56 AM CST [id number] CHIEF COMPLAINT/REASON FOR VISIT Leg swelling. HISTORY [...] potentially ordering an open MRI in the [facility] and then having him follow through [...] KILGORE MD On: 08/12/2014 08:50 AM Source: [facility] MHSDOLBEYNONRADSYS Document Id: [id number] HANGER documented in this encounter Miscellaneous Notes Miscellaneous - Cintia Cobb M.D. - 07/28/2014 11:50 AM LIVE HANGER blood thinner Document Contains Addenda Addendum by ANNE MARIE TUTTLE LPN, RT on 28 July 2014 12:40:42 LIVE HANGER notified. DL From: CINTIA KILOGRE MD To: ANNE MARIE TUTTLE LPN, RT; Sent: 07/28/2014 11:50:00 LIVE HANGER Subject: blood thinner Please let patient know that I have heard from Dr. Reyes re: anticoagulation/blood thinner medicine and he would wait to address that until after surgery. We will have him see Dr. Gaitan as scheduled on 08/14 and myself on 08/10. Cintia Segura Source: [facility] POWERCHART Document Id: [id number] Miscellaneous - Cintia Cobb M.D. - 07/27/2014 2:12 PM LIVE HANGER Ambulatory Patient Summary [address] [place], [place] [phone] Visit Information Name: LUNALAZ Padilla [facility] Number: [id number] Current Date: 07/27/2014 14:12:29 [...] swelling This is a CHANGE Routed to [facility] [address] hydrochlorothiazide (hydrochlorothiazide 25 mg oral tablet) 1 Tablet(s), Oral, once a day high bloodpressure This [facility] a [facility] [address] hydrocortisone topical (hydrocortisone 2.5% topical lotion) 1 jannie, Topical, three times a day ibuprofen (Advil) 200 mg, Oral, 2 tabs daily insulin glargine (Lantus Solostar Pen 100 units/mL subcutaneous solution) 75 units, Subcutaneous, once a day diabetes This is a CHANGE [facility] [address] liraglutide (Victoza) 1.8 mg, Subcutaneous, once a day lisinopril (lisinopril 40 mg oral tablet) 1 Tablet(s), Oral, two times a day high blood pressure This is a CHANGE Routed to [address] [address] metFORMIN (metformin 1000 mg oral tablet) 1 Tablet(s), Oral, two times a day with meals diabetes This is a CHANGE Routed to [address] [address] metoprolol (metoprolol tartrate 25 mg oral tablet) 1 Tablet(s), Oral, two times a day omeprazole (omeprazole 20 mg oral delayed release capsule) 1 cap, Oral, once a day simvastatin (simvastatin 40 mg oral tablet) 1 Tablet(s), Oral, once a day (at bedtime) high cholesterol This is a CHANGE Routed to [address] [address] tadalafil (Cialis 20 mg oral [...] Appointments Date Time Location Provider 08/10/2014 18:00 [facility] Family Med Cintia Song MD 08/14/2014 11:30 [facility] Cardiology Chasity Gaitan MD Attention: Contact your local Clinic if further appointment detail needed. Your Goals/Additional instructions: Source: [facility] POWERCHART Document Id: [id number] HANGER Miscellaneous - Cintia Cobb M.D. - 07/27/2014 2:12 PM LIVE HANGER Ambulatory Discharge Medication List [address] [id number] Visit Information Name: LAZ LUNA [facility] Number: [id number] Visit Date: 07/27/2014 14:12:27 [...] swelling This is a CHANGE Routed to [address] [address] hydrochlorothiazide (hydrochlorothiazide 25 mg oral tablet) 1 Tablet(s), Oral, once a day high bloodpressure This is a CHANGE Routed to [address] [address] hydrocortisone topical (hydrocortisone 2.5% topical lotion) 1 jannie, Topical, three times a day ibuprofen (Advil) 200 mg, Oral, 2 tabs daily insulin glargine (Lantus Solostar Pen 100 units/mL subcutaneous solution) 75 units, Subcutaneous, once a day diabetes This is a CHANGE Routed to [address] [address] liraglutide (Victoza) 1.8 mg, Subcutaneous, once a day lisinopril (lisinopril 40 mg oral tablet) 1 Tablet(s), Oral, two times a day high blood pressure This is a CHANGE Routed to [address] [address] metFORMIN (metformin 1000 mg oral tablet) 1 Tablet(s), Oral, two times a day with meals diabetes This is a CHANGE Routed to [address] [address] metoprolol (metoprolol tartrate 25 mg oral tablet) 1 Tablet(s), Oral, two times a day omeprazole (omeprazole 20 mg oral delayed release capsule) 1 cap, Oral, once a day simvastatin (simvastatin 40 mg oral tablet) 1 Tablet(s), Oral, once a day (at bedtime) high cholesterol This is a CHANGE Routed to [address] [address] tadalafil (Cialis 20 mg oral [...] MD Signed On:27-JUL-2014 14:12:20 Additional Information: Source: [facility] POWERCHART Document Id: [id number] HANGER Miscellaneous - Anne Marie Tuttle L.PPiliN. - 07/27/2014 12:11 PM CST Health Assessment Health Assessment Entered On: 07/27/2014 12:12 LIVE HANGER Performed On: 07/27/2014 12:11 LIVE HANGER by ANNE MARIE TUTTLE LPN, RT Health Assessment Complete Health Assessment Complete or Modified : Annual Health Assessment Annual Health Assessment Completed : Yes ANNE MARIE TUTTLE LPN, RT - 07/27/2014 12:11 LIVE HANGER Nutrition Nutrition Risk Factors by History Adult : None ANNE MARIE TUTTLE LPN, RT - 07/27/2014 12:11 LIVE HANGER Functional Current Daily Living Assistance : None ANNE MARIE TUTTLE LPN, RT - 07/27/2014 12:11 LIVE HANGER Dependent Habits Tobacco Use/Currently Using : No Smoking Status : Never smoker ANNE MARIE TUTTLE LPN, RT - 07/27/2014 12:11 LIVE HANGER Tobacco Use Grid Last Use : never ANNE MARIE TUTTLE LPN, RT - 07/27/2014 12:11 LIVE HANGER Caffeine Use Grid Caffeine Use : Current Type : Coffee, Soft drinks Frequency : Weekly Amount : soda- weekly; coffee- 1x/week ANNE MARIE TUTTLE LPN, RT - 07/27/2014 12:11 LIVE HANGER Recreational Drug Use Grid Drug Use : None ANNE MARIE TUTTLE LPN, RT - 07/27/2014 12:11 LIVE HANGER Psychosocial Domestic Abuse Concerns : None Jehovah'S Witness Preference : Unknown ANNE MARIE TUTTLE LPN, RT - 07/27/2014 12:11 LIVE HANGER Advance Directive Advanced Directives : No Advance Directive Additional Information : No ANNE MARIE TUTTLE LPN, RT - 07/27/2014 12:11 LIVE HANGER Educ Needs Learning Style Preference Adult Grid Patient : Demonstration, Printed materials, Verbal explanation, Video/Educational TV Family : None ANNE MARIE TUTTLE LPN, RT - 07/27/2014 12:11 LIVE HANGER Source: [facility] POWERCHART Document Id: [id number] LIVE HANGER!33 HANGER Miscellaneous - Anne Marie Tuttle L.P.N. - 07/27/2014 12:04 PM CST Adult Ophthalmic Technician Intake/History Adult Ophthalmic Technician Intake/History Entered On: 07/27/2014 12:09 LIVE HANGER Performed On: 07/27/2014 12:04 LIVE HANGER by ANNE MARIE TUTTLE LPN, RT Intake [...] MARIE TUTTLE LPN, RT - 07/27/2014 12:04 LIVE HANGER General Info Information Given By : Patient Preferred Communication Mode : Verbal Languages : [place] Citizen Is Patient Female and 13-50 no hysterectomy : No ANNE MARIE TUTTLE LPN, RT - 07/27/2014 12:04 LIVE HANGER Subjective Pain Symptoms : Yes ANNE MARIE TUTTLE LPN, RT - 07/27/2014 12:04 LIVE HANGER Pain Pain Assessment Grid Pain 1 Pain 2 Location : Shoulder Lower leg Laterality : Left Bilateral ANNE MARIE TUTTLE LPN, RT - 07/27/2014 12:04 LIVE HANGER ANNE MARIE TUTTLE LPN, RT - 07/27/2014 12:04 LIVE HANGER Dependent Habits Tobacco Use/Currently Using : No Smoking Status : Never smoker ANNE MARIE TUTTLE LPN, RT - 07/27/2014 12:04 LIVE HANGER Tobacco Use Grid Last Use : never ANNE MARIE TUTTLE LPN, RT - 07/27/2014 12:04 LIVE HANGER Caffeine Use Grid Caffeine Use : Current Type : Coffee, Soft drinks Frequency : Weekly Amount : soda- weekly; coffee- 1x/week ANNE MARIE TUTTLE LPN, RT - 07/27/2014 12:04 LIVE HANGER Recreational Drug Use Grid Drug Use : None ANNE MARIE TUTTLE LPN, RT - 07/27/2014 12:04 LIVE HANGER ID Screen Drug Resistant Organism : No Travel Within Last 21 Days : No ANEN MARIE TUTTLE LPN, RT - 07/27/2014 12:04 LIVE HANGER Source: [facility] POWERCHART Document Id: [id number] LIVE HANGER!49 HANGER documented in this encounter Plan of Treatment Not on filedocumented as of this encounter Procedures Procedure Name Priority Date/Time Associated Comments Diagnosis CBC WITHOUT Routine 07/27/2014 12:49 Results for this DIFFERENTIAL, B PM LIVE HANGER procedure ar e in the results section. HEMOGLOBIN A1C, B Routine 07/27/2014 12:49 Result s for this PM LIVE HANGER procedure are i n the results section. COMPREHENSIVE Routine 07/27/2014 12:49 Results fo r this METABOLIC PANEL, S/P PM LIVE HANGER procedu re are in the results section. documented in this encounter Results CBC without Differential (07/27/2014 12:49 PM LIVE HANGER) P athologist Signature Leukocytes 10.2 3.5 - 10.5 POWERCHART X109L Erythrocytes 5.05 4.32 - 5.72 POWERCHART X9229R Hemoglobin 14.5 13.5 - 17.5 POWERCHART GDL Hematocrit 44.9 38.8 - 50.0 POWERCHART MCV 88.9 81.0 - 95.0 POWERCHART FL HX RDW 14.4 11.8 - 15.6 POWERCHART Platelet Count 183 150 - 450 POWERCHART X109L Specimen (Source) Anatomical Collection Method Collection Time Re ceived Time Location / / Volume Laterality Blood 07/27/2014 12:49 PM LIVE HANGER Cintia Copeland M.D. LAB BLOOD ADD-ON Performing Organization Address City/State/ZIP Code Phon e Number POWERCHART (ABNORMAL) Hemoglobin A1c (07/27/2014 12:49 PM LIVE HANGER) P athologist Signature Hemoglobin A1c, 8.6 (H) <=5.6 A1C POWERCHART B Specimen (Source) Anatomical Collection Method Collection Time Re ceived Time Location / / Volume Laterality Blood 07/27/2014 12:49 PM LIVE HANGER Cintia Copeland M.D. LAB BLOOD ADD-ON Performing Organization Address City/State/ZIP Code Phon e Number POWERCHART (ABNORMAL) CMP (Comprehensive Metabolic Panel) (07/27/2014 12:49 PM LIVE HANGER) Patholo gist Method Time Signature Anion Gap [...] GDL HXeGFR (MDRD) 57 (L) >=60 POWERCHART [id number] 2 eGFR Black/ >60 >=60 POWERCHART Egyptian [id number] 2 Specimen (Source) Anatomical Collection Method Collection Time Re ceived Time Location / / Volume Laterality Blood 07/27/2014 12:49 PM LIVE HANGER Cintia Copeland M.D. LAB BLOOD ADD-ON Performing Organization Address City/State/ZIP Code Phon e Number POWERCHART documented in this encounter Visit Diagnoses Not on filedocumented in this encounter Additional Health Concerns Assessment Noted Time PHQ-9 Depression Total Score: 18 02/14/2013 9:53 AM CD T documented as of this encounter
--- OUTSIDE RECORDS SUMMARY | 2022-08-12 09:27 | XMS_ITS | Encounter Summary ---
:1960 Author Organization [facility] Address [address] [place] [address] Care Team Providers Name Role Phone Unavailable Primary Care Provider Unavailable Encounter Details Date Type Department Care Team Description 08/17/2014 Hospital Encounter HX [facility] Cintia Aguirre M.D. [address] [place] [phone] (Wo rk) Social History Tobacco Use Types Packs/Day Years Used Date Smoking Tobacco: Never Assessed Sex Assigned at Date Recorded Not on file documented as of this encounter Last Filed Vital Signs Vital Sign Reading Time Taken Comments Blood Pressure 148/81 08/17/2014 2:06 PM CONTROLLER REPAIRER AND TESTER Pulse 53 08/17/2014 2:06 PM CONTROLLER REPAIRER AND TESTER Temperature - - Respiratory Rate - - Oxygen Saturation - - Inhaled Oxygen Concentration - - Weight 160 kg (352 lb 8.3 oz) 08/17/2014 2:06 PM CONTROLLER REPAIRER AND TESTER Height 185 cm (6' 0.84) 08/17/2014 2:06 PM CONTROLLER REPAIRER AND TESTER Body Mass Index 46.72 08/17/2014 2:06 PM CONTROLLER REPAIRER AND TESTER documented in this encounter Progress Notes Cintia Cobb M.D. - 08/17/2014 2:02 PM CST [id number] CHIEF COMPLAINT/REASON FOR VISIT Follow up pneumonia [...] point, and he is waiting for the beater room supervisor to give him a call back. 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 - 08/17/2014 2:36 PM CONTROLLER REPAIRER AND TESTER Ambulatory Patient Summary [address] [id number] Visit Information Name: LAZ LUNA [facility] Number: [id number] Current Date: 08/17/2014 14:36:05 Physicians [...] appointment detail needed. Your Goals/Additional instructions: Source: [facility] POWERCHART Document Id: [id number] ROLLER REPAIRER AND TESTER Miscellaneous - Cintia Cobb M.D. - 08/17/2014 2:36 PM CONTROLLER REPAIRER AND TESTER Ambulatory Discharge Medication List [address] [id number] Visit Information Name: LAZ LUNA [facility] Number: [id number] Visit Date: 08/17/2014 14:36:03 Attending [...] MD Signed On:17-AUG-2014 14:35:44 Additional Information: Source: [facility] POWERCHART Document Id: [id number] ROLLER REPAIRER AND TESTER Miscellaneous - Anne Marie Tuttle L.P.N. - 08/17/2014 2:06 PM CST Adult Medical Collector Intake/History Adult Medical Collector Intake/History Entered On: 08/17/2014 14:08 CONTROLLER REPAIRER AND TESTER Performed On: 08/17/2014 14:06 CONTROLLER REPAIRER AND TESTER by ANNE MARIE TUTTLE LPN, RT Intake [...] MARIE TUTTLE LPN, RT - 08/17/2014 14:06 CONTROLLER REPAIRER AND TESTER General Info Information Given By : Patient Preferred Communication Mode : Verbal Languages : [place] Is Patient Female and 13-50 no hysterectomy : No ANNE MARIE TUTTLE LPN, RT - 08/17/2014 14:06 CONTROLLER REPAIRER AND TESTER Subjective Pain Symptoms : No ANNE MARIE TUTTLE LPN, RT - 08/17/2014 14:06 CONTROLLER REPAIRER AND TESTER Dependent Habits Tobacco Use/Currently Using : No Smoking Status : Never smoker ANNE MARIE TUTTLE LPN, RT - 08/17/2014 14:06 CONTROLLER REPAIRER AND TESTER Tobacco Use Grid Last Use : never ANNE MARIE TUTTLE LPN, RT - 08/17/2014 14:06 CONTROLLER REPAIRER AND TESTER Caffeine Use Grid Caffeine Use : Current Type : Coffee, Soft drinks Frequency : Weekly Amount : soda- weekly; coffee- 1x/week ANNE MARIE TUTTLE LPN, RT - 08/17/2014 14:06 CONTROLLER REPAIRER AND TESTER Recreational Drug Use Grid Drug Use : None ANNE MARIE TUTTLE LPN, RT - 08/17/2014 14:06 CONTROLLER REPAIRER AND TESTER ID Screen Drug Resistant Organism : No Travel Within Last 21 Days : No ANNE MARIE TUTTLE LPN, RT - 08/17/2014 14:06 CONTROLLER REPAIRER AND TESTER Source: [facility] [employer] Document Id: [id number] CONTROLLER REPAIRER AND TESTER!41 ROLLER REPAIRER AND TESTER documented in this encounter Plan of Treatment Not on filedocumented as of this encounter Visit Diagnoses Not on filedocumented in this encounter Additional Health Concerns Assessment Noted Time PHQ-9 Depression Total Score: 18 02/14/2013 9:53 AM CD T documented as of this encounter
--- OUTSIDE RECORDS SUMMARY | 2022-08-12 09:27 | XMS_ITS | Encounter Summary ---
:1960 Author Organization [facility] Address [address] [place] [address] Care Team Providers Name Role Phone Unavailable Primary Care Provider Unavailable Encounter Details Date Type Department Care Team Description 07/27/2014 [facility] Cintia lindquist M.D. [address] [place] [phone] (Wo rk) Social History Tobacco Use [...] 185 cm (6' 0.84) 07/27/2014 1:30 PM TILE SORTER Body Mass Index - - documented in this encounter Plan of Treatment Not on filedocumented as of this encounter Visit Diagnoses Not on filedocumented in this encounter Additional Health Concerns Assessment Noted Time PHQ-9 Depression Total Score: 18 02/14/2013 9:53 AM CD T documented as of this encounter
--- OUTSIDE RECORDS SUMMARY | 2022-08-12 09:27 | XMS_ITS | Encounter Summary ---
:1960 Author Organization [facility] Address [address] [place] [address] Care Team Providers Name Role Phone Unavailable Primary Care Provider Unavailable Encounter Details Date Type Department Care Team Description 08/10/[address] [facility] [place] Kevin Aguirre M.D. [address] [place] [phone] (Wo rk) Social History Tobacco Use Types Packs/Day Years Used Date Smoking Tobacco: Never Assessed Sex Assigned at Date Recorded Not on file documented as of this encounter Last Filed Vital Signs Vital Sign Reading Time Taken Comments Blood Pressure 155/73 08/10/2014 7:21 PM COAL YARD SUPERVISOR Pulse 57 08/10/2014 6:11 PM COAL YARD SUPERVISOR Temperature - - Respiratory Rate - - Oxygen Saturation - - Inhaled Oxygen Concentration - - Weight 167 kg (368 lb 2.7 oz) 08/10/2014 6:11 PM COAL YARD SUPERVISOR Height 185 cm (6' 0.84) 08/10/2014 7:21 PM COAL YARD SUPERVISOR Body Mass Index 48.79 08/10/2014 6:11 PM COAL YARD SUPERVISOR documented in this encounter H&P Notes Kevin Cobb M.D. - 08/10/2014 6:05 PM CST [id number] CHIEF COMPLAINT/REASON FOR VISIT Preanesthesia medical exam. HISTORY OF PRESENT ILLNESS Ed is a 54-year-old, male who presents today for preanesthesia medical exam prior to undergoing gastric bypass surgery on August 25 in [facility] in [place]. He has never had any problems with [...] drink any alcohol. 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 VITAL SIGNS Temperature 36.3. Pulse is 57 [...] KILGORE MD On: 08/24/2014 05:13 PM Source: [facility] MHSDOLBEYNONRADSYS Document Id: [id number] YARD SUPERVISOR documented in this encounter Nursing Notes Selam Ferrell R.N. - 07/20/2014 1:34 PM CST holter monitor Email sent to Dr. Reyes that the holter monitor and EKG are available for him to review. Electronically Signed By: SELAM FERRELL RN On: 07/20/2014 01:35 PM Modified by and Electronically Signed by: SELAM FERRELL RN On: 07/20/2014 01:35 PM Source: [facility] POWERCHART Document Id: [id number] YARD SUPERVISOR documented in this encounter Miscellaneous Notes Miscellaneous - Anne Marie Tuttle L.PPiliNPili - 08/10/2014 7:21 PM CST Ambulatory Vitals Height Weight Ambulatory Vitals Height Weight Entered On: 08/10/2014 19:21 COAL YARD SUPERVISOR Performed On: 08/10/2014 19:21 COAL YARD SUPERVISOR by ANNE MARIE TUTTLE LPN, RT Vitals/Ht/Wt Systolic Blood Pressure : 155 mmHg (HI) Diastolic Blood Pressure : 73 mmHg NIBP Mean : 100 mmHg BP Location : Left upper extremity Blood Pressure Cuff Size : Large Height : 185 cm(Converted to: 6 ft 1 inch(es), 73 inch(es)) ANNE MARIE TUTTLE LPN, RT - 08/10/2014 19:21 COAL YARD SUPERVISOR Source: [facility] POWERCHART Document Id: [id number] COAL YARD SUPERVISOR!8 YARD SUPERVISOR Miscellaneous - Kevin Cobb M.D. - 08/10/2014 7:14 PM COAL YARD SUPERVISOR Ambulatory Patient Summary [place] - [address] [id number] Visit Information Name: NOEMÍ LUNA [facility] Number: [id number] Current Date: 08/10/2014 19:14:13 [...] leg swellingThis is a CHANGE Routed to [address] [address] hydrochlorothiazide (hydrochlorothiazide 25 mg oral tablet) 2 [...] appointment detail needed. Your Goals/Additional instructions: Source: [facility] POWERCHART Document Id: [id number] YARD SUPERVISOR Miscellaneous - Kevin Cobb M.D. - 08/10/2014 7:14 PM COAL YARD SUPERVISOR Ambulatory Discharge Medication List [address] [place] [id number] Visit Information Name: NOEMÍ LUNA [facility] Number: [id number] Visit Date: 08/10/2014 19:14:11 [...] leg swellingThis is a CHANGE Routed to [address] [address] hydrochlorothiazide (hydrochlorothiazide 25 mg oral [...] MD Signed On:10-AUG-2014 19:13:51 Additional Information: Source: [facility] POWERCHART Document Id: [id number] YARD SUPERVISOR Miscellaneous - Anne Marie Tuttle, AlexandreP.N. - 08/10/2014 6:24 PM CST Ambulatory Vitals Height Weight Ambulatory Vitals Height Weight Entered On: 08/10/2014 18:26 COAL YARD SUPERVISOR Performed On: 08/10/2014 18:24 COAL YARD SUPERVISOR by ANNE MARIE TUTTLE LPN, RT Vitals/Ht/Wt Systolic Blood Pressure : 162 mmHg (>HHI) Diastolic Blood Pressure : 84 mmHg NIBP Mean : 110 mmHg BP Location : Left upper extremity Blood Pressure Cuff Size : Large Height : 185 cm(Converted to: 6 ft 1 inch(es), 73 inch(es)) ANNE MARIE TUTTLE LPN, - 08/10/2014 18:24 COAL YARD SUPERVISOR Source: [facility] POWERCHART Document Id: [id number] COAL YARD SUPERVISOR!8 YARD SUPERVISOR Miscellaneous - Anne Marie Tuttle L.P.N. - 08/10/2014 6:20 PM CST Obstructive Sleep Apnea Obstructive Sleep Apnea Entered On: 08/10/2014 18:22 COAL YARD SUPERVISOR Performed On: 08/10/2014 18:20 COAL YARD SUPERVISOR by ANNE MARIE TUTTLE LPN, RT CELESTE Screening Known Obstructive Sleep Apnea : No - NOT diagnosed with CELESTE ANNE MARIE TUTTLE LPN, RT - 08/10/2014 18:20 COAL YARD SUPERVISOR CELESTE Assessment Do you have high blood [...] ANNE MARIE TUTTLE LPN, - 08/10/2014 18:20 COAL YARD SUPERVISOR [facility] Document Id: [id number] COAL YARD SUPERVISOR!10 YARD SUPERVISOR Miscellaneous - Anne Marie Tuttle L.P.N. - 08/10/2014 6:11 PM CST Adult Examination Scorer Intake/History Adult Examination Scorer Intake/History Entered On: 08/10/2014 18:15 COAL YARD SUPERVISOR Performed On: 08/10/2014 18:11 COAL YARD SUPERVISOR by ANNE MARIE TUTTLE LPN, RT Intake Chief Complaint : preop. surgery gastricbypass in 08/25/2014 [place] Ambulatory Intake Additional Information : concerned about [...] 2.93 Body Mass Index : 48.79 kg/m2 OTNYA ANNE MARIE Lindsay LPN, RT - 08/10/2014 18:11 COAL YARD SUPERVISOR General Info Information Given By : Patient Preferred Communication Mode : Verbal Languages : French Is Patient Female and 13-50 no hysterectomy : No TONYA ANNE MARIE Lindsay LPN, RT - 08/10/2014 18:11 COAL YARD SUPERVISOR Subjective Pain Symptoms : Yes TONYA ANNE MARIE Lindsay LPN, RT - 08/10/2014 18:11 COAL YARD SUPERVISOR Pain Pain Assessment Grid Pain 1 Location : Lower back Laterality : Right ANNE MARIE TUTTLE Angélica ZURITA, RT - 08/10/2014 18:11 COAL YARD SUPERVISOR Dependent Habits Tobacco Use/Currently Using : No Smoking Status : Never smoker ANNE MARIE TUTTLE LPN, RT - 08/10/2014 18:11 COAL YARD SUPERVISOR Tobacco Use Grid Last Use : never TONYA ANNE MARIE Lindsay LPN, RT - 08/10/2014 18:11 COAL YARD SUPERVISOR Caffeine Use Grid Caffeine Use : Current Type : Coffee, Soft drinks Frequency : Weekly Amount : soda- weekly; coffee- 1x/week TONYA ANNE MARIE Lindsay LPN, RT - 08/10/2014 18:11 COAL YARD SUPERVISOR Recreational Drug Use Grid Drug Use : None TONYA ANNE MARIE Lindsay LPN, RT - 08/10/2014 18:11 COAL YARD SUPERVISOR ID Screen Drug Resistant Organism : No Travel Within Last 21 Days : No TONYA ANNE MARIE Lindsay LPN, RT - 08/10/2014 18:11 COAL YARD SUPERVISOR [facility] Document Id: [id number] COAL YARD SUPERVISOR!47 YARD SUPERVISOR documented in this encounter Plan of Treatment Not on filedocumented as of this encounter Visit Diagnoses Not on filedocumented in this encounter Additional Health Concerns Assessment Noted Time PHQ-9 Depression Total Score: 18 02/14/2013 9:53 AM CD T documented as of this encounter
--- OUTSIDE RECORDS SUMMARY | 2022-08-12 09:27 | XMS_ITS | Encounter Summary ---
:1960 Author Organization [facility] Address [address] [place] [address] Care Team Providers Name Role Phone Unavailable Primary Care Provider Unavailable Encounter Details Date Type Department Care Team Description 03/21/2014 Hospital Encounter HX NO MAPPING Rocio Norman M.D. [address] [place] [phone] (Wo rk) Social History Tobacco [...] Norman M.D. - 03/21/2014 3:25 PM CDT [id number] HISTORY OF PRESENT ILLNESS Ed is a [...] NORMAN MD On: 03/22/2014 07:43 AM Source: [facility] MHSDOLBEYNONRADSYS Document Id: [id number] documented in this encounter Miscellaneous Notes Miscellaneous - John Norman M.D. - 03/21/2014 4:07 PM CDT Ambulatory Patient Summary [facility] [address] [id number] Visit Information Name: LAZ LUNA [facility] Number: [id number] Current Date: 03/21/2014 16:07:21 Physicians [...] instructions: Source: [facility] POWERCHART Document Id: [id number] Miscellaneous - John Norman M.D. - 03/21/2014 4:07 PM CDT Ambulatory Discharge Medication List [facility] [address] [id number] Visit Information Name: LUNALAZ [facility] Number: [id number] Visit Date: 03/21/2014 16:07:18 Attending [...] MD Signed On:21-MAR-2014 16:07:07 Additional Information: Source: [facility] POWERCHART Document Id: [id number] Miscellaneous - Lacie Donaldson R.N. - 03/21/2014 3:31 PM CDT Adult Government Service Executive Intake/History Adult Government Service Executive Intake/History Entered On: 03/21/2014 15:34 CDT Performed On: 03/21/2014 15:31 CDT by LACIE DONALDSON tube handler Chief Complaint : f/u right shoulder pain [...] Communication Mode : Verbal Languages : Greek LACIE DONALDSON RN - 03/21/2014 15:31 CDT [...] DONALDSON RN - 03/21/2014 15:31 CDT Source: [facility] POWERCHART Document Id: [id number] CDT!39 documented in this encounter Plan of Treatment Not on filedocumented as of this encounter Visit Diagnoses Not on filedocumented in this encounter Additional Health Concerns Assessment Noted Time PHQ-9 Depression Total Score: 18 02/14/2013 9:53 AM CD T documented as of this encounter
--- OUTSIDE RECORDS SUMMARY | 2022-08-12 09:27 | XMS_ITS | Encounter Summary ---
:1960 Author Organization [facility] Address [address] [place] [address] Care Team Providers Name Role Phone Unavailable Primary Care Provider Unavailable Encounter Details Date Type Department Care Team Description 12/06/2013 Hospital Encounter HX NO MAPPING Rocio Norman M.D. [address] [place] [phone] (Wo rk) Social History Tobacco [...] Norman M.D. - 12/06/2013 2:58 PM CDT [id number] HISTORY OF PRESENT ILLNESS Ed is a [...] NORMAN MD On: 12/08/2013 10:00 AM Source: [facility] MHSDOLBEYNONRADSYS Document Id: [id number] documented in this encounter Miscellaneous Notes Miscellaneous - John Norman M.D. - 12/06/2013 4:37 PM CDT Ambulatory Patient Summary [facility] [address] [facility] [place] [id number] Visit Information Name: NOEMÍ LUNA [facility] Number: [id number] Current Date: 12/06/2013 16:37:42 [...] Date Time Location Reason Provider 12/07/2013 16:30 [facility] Family Med BP issues Duncan MENDEZ, Kevin Piper 12/14/2013 17:15 [facility] PT/OT rt shoulder impingment Ade Gandhi Attention: Contact your local Clinic if further appointment detail needed. Your Goals/Additional instructions: Source: [facility] POWERCHART Document Id: [id number] Miscellaneous - John Norman M.D. - 12/06/2013 4:37 PM CDT Ambulatory Discharge Medication List [address] [id number] Visit Information Name: NOEMÍ LUNA [facility] Number: [id number] Visit Date: 12/06/2013 16:37:40 [...] in case of emergency. Additional Information: Source: [facility] POWERCHART Document Id: [id number] Miscellaneous - Lacie Donaldson R.N. - 12/06/2013 3:07 PM CDT Adult Registered Client Associate Intake/History Adult Registered Client Associate Intake/History Entered On: 12/06/2013 15:10 CDT Performed On: 12/06/2013 15:07 CDT by LACIE DONALDSON water restoration technician Chief Complaint : right shoulder pain that [...] Preferred Communication Mode : Verbal Languages : Swazi LACIE DONALDSON RN - 12/06/2013 15:07 CDT [...] DONALDSON RN - 12/06/2013 15:07 CDT Source: [facility] [employer] Document Id: [id number] CDT!39 documented in this encounter Plan of Treatment Not on filedocumented as of this encounter Visit Diagnoses Not on filedocumented in this encounter Additional Health Concerns Assessment Noted Time PHQ-9 Depression Total Score: 18 02/14/2013 9:53 AM CD T documented as of this encounter
--- OUTSIDE RECORDS SUMMARY | 2022-08-12 09:27 | XMS_ITS | Encounter Summary ---
:1960 Author Organization [facility] Address [address] [place] [address] Care Team Providers Name Role Phone Unavailable Primary Care Provider Unavailable Encounter Details Date Type Department Care Team Description 03/06/2014 Hospital Encounter [facility]X [facility] Song FlCintia domingo M.D. [address] [place] [phone] (Wo rk) Social History Tobacco Use [...] SOB, dizziness, chest pain. Per Dr. Reyes ([place] Provider) patient advised to return if symptoms develope. Patient understood. Please advise anynew orders. Source: [facility] [employer] Document Id: [id number] Miscellaneous - Alvina Langston, L.P.N. - 03/06/2014 [...] LANGSTON LPN - 03/06/2014 16:01 CDT [facility] Document Id: [id number] CDT!9 Miscellaneous - Alvina Langston, L.P.N. - [...] LANGSTON LPN - 03/06/2014 16:01 CDT Source: [employer] Document Id: [id number] CDT!9 documented in this encounter Plan of Treatment Not on filedocumented as of this encounter Visit Diagnoses Not on filedocumented in this encounter Additional Health Concerns Assessment Noted Time PHQ-9 Depression Total Score: 18 02/14/2013 9:53 AM CD T documented as of this encounter
--- OUTSIDE RECORDS SUMMARY | 2022-08-12 09:27 | XMS_ITS | Encounter Summary ---
:1960 Author Organization [facility] Address [address] [place] [address] Care Team Providers Name Role Phone Unavailable Primary Care Provider Unavailable Encounter Details Date Type Department Care Team Description 05/10/2014 Hospital En[facility] [address] [place] [phone] (Wo rk) Social History Tobacco Use [...] is also a type of insulin Source: [employer] Document Id: [id number] Miscellaneous - Conversion, Historical Provider Ser - [...] BECERRA V - 05/10/2014 12:01 CDT Source: [employer] Document Id: [id number] CDT!11 documented in this encounter Plan of Treatment Not on filedocumented as of this encounter Visit Diagnoses Not on filedocumented in this encounter Additional Health Concerns Assessment Noted Time PHQ-9 Depression Total Score: 18 02/14/2013 9:53 AM CD T documented as of this encounter
--- OUTSIDE RECORDS SUMMARY | 2022-08-12 09:27 | XMS_ITS | Encounter Summary ---
:1960 Author Organization [facility] Address [address] [place] [address] Care Team Providers Name Role Phone Unavailable Primary Care Provider Unavailable Encounter Details Date Type Department Care Team Description 12/14/2013 - Hospital Encounter [facility] John Norman, 06/30/2014 PARKER Riggs [address] [place] [phone] Social History Tobacco Use Types Packs/Day Years Used Date Smoking Tobacco: Never Assessed Sex Assigned at Date Recorded Not on file documented as of this encounter Discharge Summaries Rigoberto Bello, P.T. - 04/24/2014 12:00 AM CDT [id number] PHYSICAL THERAPY DISCHARGE NOTE The patient was [...] BELLO DPT On: 04/26/2014 01:16 PM Source: [facility] MHSDOLBEYNONRADSYS Document Id: [id number] documented in this encounter Progress Notes Micah Donaldson P.T. - 01/11/2014 12:00 AM CDT [id number] PHYSICAL THERAPY PROGRESS NOTE CHIEF COMPLAINT/REASON FOR [...] DONALDSON DPT On: 01/19/2014 08:36 AM Source: [facility] MHSDOLBEYNONRADSYS Document Id: [id number] Rigoberto Bello P.T. - 01/04/2014 12:00 AM CDT [id number] PHYSICAL THERAPY PROGRESS NOTE CHIEF COMPLAINT Patient [...] BELLO DPT On: 01/06/2014 08:42 AM Source: [facility] MHSDOLBEYNONRADSYS Document Id: [id number] Rigoberto Bello P.T. - 12/28/2013 12:00 AM CDT [id number] PHYSICAL THERAPY PROGRESS NOTE CHIEF COMPLAINT Patient [...] BELLO DPT On: 12/30/2013 07:41 AM Source: [facility] MHSDOLBEYNONRADSYS Document Id: [id number] Micah Donaldson PSilvano. - 12/26/2013 12:00 AM CDT [id number] REVISION HISTORY January 12, 2014, at 2:01 [...] DONALDSON DPT On: 01/13/2014 01:39 PM Source: [facility] MHSDOLBEYNONRADSYS Document Id: [id number] Rigoberto Bello P.T. - 12/21/2013 12:00 AM CDT [id number] PHYSICAL THERAPY DAILY PROGRESS NOTE CHIEF COMPLAINT [...] BELLO DPRandy On: 12/23/2013 09:24 AM Source: [facility] MHSDOLBEYNONRADSYS Document Id: [id number] Micah Donaldson P.T. - 12/19/2013 12:00 AM CDT [id number] PHYSICAL THERAPY PROGRESS NOTE CHIEF COMPLAINT/REASON FOR [...] he has been pleased with our facility. Micha Donaldson D.P.T./caron Electronically Signed By: MICAH DONALDSON DPT On: 12/26/2013 04:11 PM Source: [facility] MHSDOLBEYNONRADSYS Document Id: [id number] documented in this encounter Consult Notes Rigoberto Bello P.T. - 12/14/2013 12:00 AM CDT [id number] PHYSICAL THERAPY INITIAL EVALUATION REFERRAL SOURCE/REFERRING DIAGNOSIS [...] tight, with fingers especially. 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 Negative Yebaoh Tony and negative Neer's impingement. Palpation: Patient [...] active range of motion, within 2 weeks. BUSINESS TRANSFORMATION MANAGER GOAL: 1. Patient will report no pain [...] Rigoberto Bello D.P.T./caron cc: John Norman M.D. [address] [place] [address] Electronically Signed By: RIGOBERTO BELLO DPRandy On: 12/19/2013 01:26 PM Modified by and Electronically Signed by: RIGOBERTO BELLO DPT On: 12/19/2013 01:26 PM Co-Signed By: JOHN NORMAN MD On: 12/19/2013 02:31 PM Source: [facility] WINSOMESDDEMOND Document Id: [id number] documented in this encounter Plan of Treatment Not on filedocumented as of this encounter Visit Diagnoses Not on filedocumented in this encounter Additional Health Concerns Assessment Noted Time PHQ-9 Depression Total Score: 18 02/14/2013 9:53 AM CD T documented as of this encounter
--- OUTSIDE RECORDS SUMMARY | 2022-08-12 09:27 | XMS_ITS | Encounter Summary ---
:1960 Author Organization [facility] Address [address] [place] [address] Care Team Providers Name Role Phone Unavailable Primary Care Provider Unavailable Encounter Details Date Type Department Care Team Description 07/13/2014 Hospital Encounter HX [facility] ED Pratik Aguila M.D. [address] [place] [phone] (Wo rk) Social History Tobacco Use Types Packs/Day Years Used Date Smoking Tobacco: Never Assessed Sex Assigned at Date Recorded Not on file documented as of this encounter Last Filed Vital Signs Vital Sign Reading Time Taken Comments Blood Pressure 137/79 07/13/2014 12:07 PM COKE WORKER Pulse 45 07/13/2014 12:07 PM COKE WORKER Temperature - - Respiratory Rate 18 07/13/2014 12:07 PM COKE WORKER Oxygen Saturation - - Inhaled Oxygen Concentration - - Weight - - Height 185 cm (6' 0.84) 07/13/2014 12:07 PM COKE WORKER Body Mass Index - - documented in this encounter Discharge Summaries Geneva Woodson R.N. - 07/13/2014 12:58 PM CST ED Discharge Instructions [address] [id number] Name: JEREMYNOEMÍ Date of : 1960 12:00 AM Visit Date: 07/13/2014 11:26 AM [facility] Number: [id number] Address: [address] [place] [phone] Primary Care Provider: KEVIN KILGORE MD IMPORTANT: [facility] in [place] would like to thank you for allowing us to assist you with your healthcare needs. The following includes patient education materials and informationregarding your injury/illness. Diagnosis: Sprain Shoulder Active L; Tendonitis Elbow Follow-Up Instructions: With: Address: When: KEVIN KILGORE [address] [place] [phone] Business (1) Within As Needed Comments: If symptoms worsen Your Upcoming Appointments: Date Time Location Provider 08/09/2014 18:00 [facility] Kevin Song MD Patient Education Materials: [id number] TENDONITIS A tendon is the thick fibrous [...] as directed by your healthcare provider ?? [facility], [address] [place] [address]. All rights reserved. This information is not intended as a substitute for professional medical care. Always follow your healthcare professional's instructions. [id number] SHOULDER SPRAIN A sprain is a stretching [...] of the shoulder or upper arm ?? [facility], [address] [place] [address]. All rights reserved. This information is not intended as a substitute for professional medical care. Always follow your healthcare professional's instructions. [id number] MUSCLE STRAIN,EXTREMITY A MUSCLE STRAIN is a [...] tingly -- Pain or swelling increases ?? [id number] [facility], [address] [place] [address]. All rights reserved. This information is not [...] Date Time Provider Signature Date Time Source: [employer] POWERCHART Document Id: [id number] WORKER Geneva Woodson R.N. - 07/13/2014 12:58 PM CST ED Depart Summary [facility] Emergency Department Clinical Discharge Summary PERSON INFORMATION Name NOEMÍ LUNA Age 54 Years 1960 12:00 AM Sex Male Language Niuean PCP KEVIN KILGORE MD Marital Status N [id number] Visit Id Visit Reason Arm pain-swelling; Arm pain-swelling; Left Arm Hurts Specialty Enc Type Emergency Med Service Emergency Medicine Referred by Track Group [facility] ED Discharge 07/13/2014 12:58 PM Tracking Id [id number] Checkout 07/13/2014 12:58 PM Checkin 07/13/2014 11:26 AM Acuity 4 -Less Urgent Dispo Type * Discharged to Home or Self Care Arrival 07/13/2014 11:26 AM Reg Status Complete LOS 000 01:32 Address: [address] [place] [phone] Comment: PROVIDER INFORMATION Provider Role Provider Contact Time SABRA AGUILA MD ED Provider 07/13/14 11:33 [facility] ENGINEER Nurse 07/13/14 12:09 DIAGNOSIS Sprain Shoulder Active L; Tendonitis Elbow Comment: PATIENT EDUCATION INFORMATION Instructions: TENDONITIS; SPRAIN SHOULDER; MUSCLE STRAIN, Extremity Follow up: With: Address: When: KEVIN KILGORE [address] [place] [phone] Business (1) Within As Needed Comments: If symptoms worsen [facility] POWERCHART Document Id: [id number] WORKER documented in this encounter ED Notes Geneva Woodson R.N. - 07/13/2014 12:56 PM CST ED Pain Assessment ED Pain Assessment Entered On: 07/13/2014 12:56 COKE WORKER Performed On: 07/13/2014 12:56 COKE WORKER by GENEVA WOODSON RN Pain Assessment Pain Symptoms : Yes Pain Medication Requested : No GENEVA WOODSON RN - 07/13/2014 12:56 COKE WORKER Source: [employer] Document Id: [id number] COKE WORKER!4 WORKER Geneva Woodson R.N. - 07/13/2014 12:55 PM CST ED Disposition Summary ED Disposition Summary Entered On: 07/13/2014 12:56 COKE WORKER Performed On: 07/13/2014 12:55 COKE WORKER by GENEVA WOODSON RN ED Disposition Summary Accompanied By : Alone Mode of Discharge : Ambulatory Transportation : Private vehicle Printed Discharge Instructions Given to Patient : Yes Patient Status at Discharge from ED : Improved GENEVA WOODSON RN - 07/13/2014 12:55 COKE WORKER Source: [employer] Document Id: [id number] COKE WORKER!7 WORKER Sabra Aguila M.D. - 07/13/2014 12:44 PM [...] Note : Chief Complaint Description 07/13/2014 11:58 COKE WORKER Chief Complaint Description 54 year old male [...] on 09/29/2012 at 52 years. Comments: 09/30/2012 COKE WORKER 15:06 STEVE COUCH CNP left Genital warts (ICD-9-CM 078.19) Comments: 09/30/2013 COKE WORKER 11:47 ANOOP MESSER CLEAN UP HELPER BANQUET onset unknown Tinea pedis* (ICD-9-CM 110.4) Comments: 09/30/2013 COKE WORKER 11:47 ANOOP MESSER CLEAN UP HELPER [employer]ANQUET onset unknown Tinea cruris. (ICD-9-CM 110.3) Comments: 09/30/2013 COKE WORKER 11:47 ANOOP MESSER CLEAN UP HELPER BANQUET onset unknown. Surgical history: Cystoscopy ([id number]) on 12/26/2009 at 49 Years. Comments: 02/20/2010 08:36 - STEVE ANDREA CNP [facility] / normal PSA, TOTAL SCREENING (G0103) on 12/26/2009 at 49 Years. Comments: 02/20/2010 08:38 - STEVE ANDREA CNP Done at [facility] / Result: 1.55 Discectomy ([id number]) on 02/19/1989 at 28 Years. Comments: 12/28/2009 09:38 - MYROM, STEVE J [employer]UMAN [employer]OURCES ADMIN lumbar L4-L5. Family history: Hypertension Father Congestive [...] Examination Vital Signs: Vital Signs 07/13/2014 12:07 COKE WORKER Temperature Core 37.2 DegC Peripheral Pulse Rate 45 /min <LLOW Respiratory Rate 18 /min SpO2 93 % LOW Systolic Blood Pressure 137 mmHg Diastolic Blood Pressure 79 mmHg BP Location Left upper 07/13/2014 9:15 COKE WORKER Peripheral Pulse Rate 46 /min <LLOW Systolic Blood Pressure 156 mmHg HI Diastolic Blood Pressure 78 mmHg Mean Arterial Pressure 104 mmHg , Measurements 07/13/2014 12:07 COKE WORKER Height 185 cm 07/13/2014 10:24 COKE WORKER Height 185 cm 07/13/2014 9:15 COKE WORKER Height 185 cm 07/13/2014 9:09 COKE WORKER Height 185 cm , oxygen saturation. General: [...] from flowsheet : Vital Signs 07/13/2014 12:07 COKE WORKER Temperature Core 37.2 DegC Peripheral Pulse Rate 45 /min <LLOW Respiratory Rate 18 /min SpO2 93 % LOW Systolic Blood Pressure 137 mmHg Diastolic Blood Pressure 79 mmHg BP Location Left upper 07/13/2014 9:15 COKE WORKER Peripheral Pulse Rate 46 /min <LLOW Systolic [...] AGUILA MD On: 07/14/2014 10:08 AM Source: [facility] POWERCHART Document Id: [id number]} WORKER Manan Ramírez R.N. - 07/13/2014 12:03 PM CST ED Primary Assessment Document Has Been Updated ED Primary Assessment Entered On: 07/13/2014 12:05 COKE WORKER Performed On: 07/13/2014 12:03 COKE WORKER by MANAN RAMÍREZ RN Reason For Visit (As Of: 07/13/2014 12:05:33 COKE WORKER) Problems(Active) BPH without urinary obstruction (ICD-9-CM :600.00 ) Name of Problem: BPH without urinary obstruction; Recorder: STEVE ANDREA CNP; Confirmation: Confirmed ; Classification: Medical ; Code: 600.00 ; Contributor System: [employer] 2000Chart ; Last Updated: 02/15/2010 10:00 CDT ; [...] System: PowerChart ; Last Updated: 07/24/2011 10:45 COKE WORKER ; Life Cycle Date: 12/05/2010 ; Life [...] Radial head ; OnsetDate: 09/29/2012 ; Recorder: TSEVE ANDREA CNP; Confirmation: Confirmed ; Classification: Medical ; Code: 813.05 ; Contributor System: [employer] 2000Chart ; Last Updated: 09/30/2012 15:06 COKE WORKER ; Life Cycle Date: 09/30/2012 ; Life [...] Code: 695.89 ; Last Updated: 07/14/2012 14:36 COKE WORKER ; Life Cycle Status: Active ; Responsible [...] Medical ; Code: 278.00 ; Contributor System: [employer] ; Last Updated: 09/05/2010 9:56 COKE WORKER ; Life Cycle Date: 09/05/2010 ; Life [...] ICD-9-CM ; Comments: 09/30/2013 11:IKE ISAACICA R CLEAN UP HELPER [employer]ANQUET onset unknown Ulcer of skin NOS (ICD-9-CM :707.9 ) Name of Problem: Ulcer of skin NOS ; Recorder: HALEIGH SCHULTZ CNP; Confirmation: Confirmed ; Classification: UPDATE NEEDED ; Code: 707.9 ; Contributor System: [employer] ; Last Updated: 09/18/2010 8:25 COKE WORKER ; Life Cycle Date: 09/18/2010 ; Life Cycle Status: Active ; Responsible Provider: HALEIGH SCHULTZ CNP; Vocabulary: ICD-9-CM ; Comments: 09/30/2013 11:IKE ISAACICA R CLEAN UP HELPER BANQUET onset unknown Unspecified Adjustment Reaction (ICD-9-CM :309.9 ) Name of Problem: Unspecified Adjustment Reaction ; Onset Date: 05/05/2013 ; Confirmation: Confirmed ; Classification: Medical ; Code: 309.9 ; Contributor System: [facility]_HX_PR_UPLOAD ; Last Updated: 12/03/2013 18:36 [...] PNED ; Probability: 0 ; Diagnosis Code: [id number] Triage Mode of Arrival ED : Private vehicle Track : Medical Languages : Niuean Treatments Prior to Arrival : Home treatments Is Patient Female and 13-50 no hysterectomy : No MANAN RAMÍREZ RN - 07/13/2014 12:03 COKE WORKER Pain Assessment Pain Symptoms : Yes MANAN RAMÍREZ RN - 07/13/2014 12:03 COKE WORKER ID Screen Drug Resistant Organism : No Travel Within Last 21 Days : No MANAN RAMÍREZ RN - 07/13/2014 12:03 COKE WORKER Respiratory Airway : Patent Respirations : Unlabored Respiratory Pattern : Regular MANAN RAMÍREZ RN - 07/13/2014 12:03 COKE WORKER Cardiovascular Skin Color : Normal for ethnicity Skin Description : Dry Skin Temperature : Warm MANAN RAMÍREZ RN - 07/13/2014 12:03 COKE WORKER Neurological Last Well Time Known : Not applicable Level of Consciousness : Alert Orientation : Oriented x 3 Characteristics of Speech : Appropriate for age MANAN RAMÍREZ RN - 07/13/2014 12:03 COKE WORKER ED Psychosocial Affect/Behavior : Calm, Cooperative, Appropriate Domestic Abuse Concerns : None MANAN RAMÍREZ RN - 07/13/2014 12:03 COKE WORKER Gastrointestinal Nutrition ED : Adequate MANAN RAMÍREZ RN - 07/13/2014 12:03 COKE WORKER Musculoskeletal Fall Prevention Education Provided : NA MANAN RAMÍREZ RN - 07/13/2014 12:03 COKE WORKER Social Habits Tobacco Use/Currently Using : No Smoking Status : Never smoker MANAN RAMÍREZ RN - 07/13/2014 12:03 COKE WORKER Tobacco Use Grid Last Use : never MANAN RAMÍREZ RN - 07/13/2014 12:03 COKE WORKER Alcohol Use Grid Alcohol Use : No MANAN RAMÍREZ RN - 07/13/2014 12:03 COKE WORKER Recreational Drug Use Grid Drug Use : None MANAN RAMÍREZ RN - 07/13/2014 12:03 COKE WORKER Source: [facility] POWERCHART Document Id: [id number] COKE WORKER!44 WORKER Manan Ramírez R.N. - 07/13/2014 11:58 AM CST ED Triage Assessment Document Has Been Updated ED Triage Assessment Entered On: 07/13/2014 12:03 COKE WORKER Performed On: 07/13/2014 11:58 COKE WORKER by MANAN RAMÍREZ RN Reason For Visit (As Of: 07/13/2014 12:03:04 COKE WORKER) Problems(Active) BPH without urinary obstruction (ICD-9-CM :600.00 ) Name of Problem: BPH without urinary obstruction; Recorder: STEVE ANDREA CNP; Confirmation: Confirmed ; Classification: Medical ; Code: 600.00 ; Contributor System: [employer] 2000Chart ; Last Updated: 02/15/2010 10:00 CDT ; [...] System: PowerChart ; Last Updated: 07/24/2011 10:45 COKE WORKER ; Life Cycle Date: 12/05/2010 ; Life [...] Medical ; Code: 607.84 ; Contributor System: [employer] 2000Chart ; Last Updated: 12/28/2009 9:40 CDT ; [...] System: PowerChart ; Last Updated: 09/30/2012 15:06 COKE WORKER ; Life Cycle Date: 09/30/2012 ; Life [...] Code: 695.89 ; Last Updated: 07/14/2012 14:36 COKE WORKER ; Life Cycle Status: Active ; Responsible [...] Medical ; Code: 278.00 ; Contributor System: [employer] ; Last Updated: 09/05/2010 9:56 COKE WORKER ; Life Cycle Date: 09/05/2010 ; Life [...] ICD-9-CM ; Comments: 09/30/2013 11:ANOOP ISAAC R CLEAN UP HELPER BANQUET onset unknown Ulcer of skin NOS (ICD-9-CM :707.9 ) Name of Problem: Ulcer of skin NOS ; Recorder: HALEIGH SCHULTZ CNP; Confirmation: Confirmed ; Classification: UPDATE NEEDED ; Code: 707.9 ; Contributor System: [employer] ; Last Updated: 09/18/2010 8:25 COKE WORKER ; Life Cycle Date: 09/18/2010 ; Life Cycle Status: Active ; Responsible Provider: HALEIGH SCHULTZ CNP; Vocabulary: ICD-9-CM ; Comments: 09/30/2013 11:ANOOP ISAAC CLEAN UP HELPER BANQUET onset unknown Unspecified Adjustment Reaction (ICD-9-CM :309.9 ) Name of Problem: Unspecified Adjustment Reaction ; Onset Date: 05/05/2013 ; Confirmation: Confirmed ; Classification: Medical ; Code: 309.9 ; Contributor System: [facility]_HX_PR_UPLOAD ; Last Updated: 12/03/2013 18:36 CDT ; Life Cycle Status: Active ; Vocabulary: ICD-9-CM ; Comments: - Unspecified adjustment reaction Urge Incontinence (ICD-9-CM :788.31 ) Name of Problem: Urge Incontinence ; Recorder: STEVE ANDREA; Confirmation: Confirmed ; Classification: Medical ; Code: 788.31 ; Contributor System: [employer] 2000Chart ; Last Updated: 02/20/2010 8:39 CDT ; Life Cycle Date: 02/20/2010 ; Life Cycle Status: Active ; Responsible Provider: STEVE ANDREA CNP; Vocabulary: ICD-9-CM ; Comments: 09/30/2013 11:46 - ANOOP QUEVEDO CLEAN UP HELPER BANQUET onset unknown Diagnoses(Active) Arm pain-swelling Date: 07/13/2014 ; Diagnosis Type: Reason For Visit ; Confirmation: Complaint of ;Clinical Dx: Arm pain-swelling ; Classification: Medical ; Clinical Service: Non-Specified ; Code: PNED ; Probability: 0 ; Diagnosis Code: [id number] Triage Chief Complaint Description : 54 year old male presents to ER with left arm pain Mode of Arrival ED : Private vehicle Track : Medical Languages : Niuean Treatments Prior to Arrival : Home treatments Is Patient Female and 13-50 no hysterectomy : No MANAN RAMÍREZ RN - 07/13/2014 11:58 COKE WORKER Pain Assessment Pain Symptoms : Yes MANAN RAMÍREZ RN - 07/13/2014 11:58 COKE WORKER Pain Pain Assessment Grid Pain 1 Location : Upper arm Intensity : 0 MANAN RAMÍREZ RN - 07/13/2014 11:58 COKE WORKER ED Physician Notification Time ED Physician Notification Time : 07/13/2014 12:02 COKE WORKER MANAN RAMÍREZ RN - 07/13/2014 11:58 COKE WORKER ERIN DCP GENERIC CODE Tracking Acuity : 4 -Less Urgent Tracking Group : [facility] ED MANAN RAMÍREZ RN - 07/13/2014 11:58 COKE WORKER Allergy (As Of: 07/13/2014 12:03:04 COKE WORKER) Allergies (Active) Cipro Estimated Onset Date: Unspecified ; Created By: STEVE ANDREA CNP; Reaction Status: Active ;Category: Drug ; Substance: Cipro ; Type: Allergy ; Updated By: STEVE ANDREA CNP; Reviewed Date: 07/13/2014 12:02 COKE WORKER Influenza Virus Vaccine Estimated Onset Date: Unspecified ; Reactions: diarrhea ; Created By: STEVE ANDREA CNP; Reaction Status: Active ; Category: Drug ; Substance: Influenza Virus Vaccine ; Type: Intolerance ; Updated By: STEVE ANDREA CNP; Reviewed Date: 07/13/2014 12:02 COKE WORKER ID Screen Drug Resistant Organism : No Travel Within Last 21 Days : No MANAN RAMÍREZ RN - 07/13/2014 11:58 COKE WORKER Immunizations Immunizations Current : Unknown Influenza : None MANAN RAMÍREZ RN - 07/13/2014 11:58 COKE WORKER Source: [facility] [employer] Document Id: [id number] COKE WORKER!27 WORKER documented in this encounter Miscellaneous Notes Miscellaneous - Geneva Woodson R.N. - 07/13/2014 12:56 PM CST Valuables/Belongings Valuables/Belongings Entered On: 07/13/2014 12:56 COKE WORKER Performed On: 07/13/2014 12:56 COKE WORKER by GENEVA WOODSON RN Valuables/Belongingglendy Home Medication Disposition : None brought in with patient GENEVA WOODSON RN - 07/13/2014 12:56 COKE WORKER Source: [facility] [employer] Document Id: [id number] COKE WORKER!3 WORKER Miscellaneous - Geneva Woodson R.N. - 07/13/2014 11:26 AM CST Facility Charge Ticket 2.0 11.0 DX Facility Charge Ticket 2.0 11.0 DX Entered On: 07/13/2014 12:57 COKE WORKER Performed On: 07/13/2014 11:26 COKE WORKER by GENEVA WOODSON RN Facility Charge Ticket [...] Control : 5 Lynx Visit Level : 84967 Level 3 Treatments Prior to Arrival : Home treatments GENEVA WOODSON RN - 07/13/2014 12:56 COKE WORKER [facility] POWERCHART Document Id: [id number] COKE WORKER!17 WORKER documented in this encounter Plan of Treatment Not on filedocumented as of this encounter Visit Diagnoses Not on filedocumented in this encounter Additional Health Concerns Assessment Noted Time PHQ-9 Depression Total Score: 18 02/14/2013 9:53 AM CD T documented as of this encounter
--- OUTSIDE RECORDS SUMMARY | 2022-08-12 09:27 | XMS_ITS | Encounter Summary ---
:1960 Author Organization [facility] Address [address] [place] [address] Care Team Providers Name Role Phone Unavailable Primary Care Provider Unavailable Encounter Details Date Type Department Care Team Description 11/25/2013 Hospital Encounter HX [facility] Cintia lindquist M.D. [address] [place] [phone] (Wo rk) Social History Tobacco Use [...] cap(s) Refills: 3 Route To Pharmacy - [id number] Signed by CINTIA KILGORE MD 11/29/2013 14:42:55 From: SHIRLENE ABBOTT RN To: CINTIA KILGORE MD; SHIRLENE ABBOTT RN; Sent: 11/28/2013 16:13:30 CDT Subject: Med Management On hold pending signature Order:omeprazole (omeprazole 20 mg oral delayed release capsule) 1 cap(s) PO Daily Qty: 90 cap(s) Refills: 3 Route To Pharmacy - [facility][id number] We have not prescribed this in the past, but it is noted on med list. Prescribed by Cindy Moy CNP. Add dx to list to make it refillable per protocol if you'd like. Source: [employer] Document Id: [id number] Miscellaneous - Tiffany Owens, L.P.N. - 11/25/2013 [...] that his insurance is not covering. Although [facility] pharm. had callled and shared he had a couple of rxs to be picked up.Thank you. co Source: [employer] Document Id: [id number] documented in this encounter Plan of Treatment Not on filedocumented as of this encounter Visit Diagnoses Not on filedocumented in this encounter Additional Health Concerns Assessment Noted Time PHQ-9 Depression Total Score: 18 02/14/2013 9:53 AM CD T documented as of this encounter
--- OUTSIDE RECORDS SUMMARY | 2022-08-12 09:27 | XMS_ITS | Encounter Summary ---
:1960 Author Organization [facility] Address [address] [place] [address] Care Team Providers Name Role Phone Unavailable Primary Care Provider Unavailable Encounter Details Date Type Department Care Team Description 03/14/2014 Hospital Encounter [facility] Juan Sears, P. A.-C. Social History [...]
--- OUTSIDE RECORDS SUMMARY | 2022-08-12 09:27 | XMS_ITS | Encounter Summary ---
:1960 Author Organization [facility] Address [address] [place] [address] Care Team Providers Name Role Phone Unavailable Primary Care Provider Unavailable Encounter Details Date Type Department Care Team Description 04/10/2014 Hospital Encounter HX [facility] Cintia lindquist M.D. [address] [place] [phone] (Wo rk) Social History Tobacco Use [...] On: 04/10/2014 10:44 CDT by ALVINA ROBERTS DATA INTEGRATION DEVELOPER Vitals/Ht/Wt Peripheral Pulse Rate : 52 /min (LOW) Systolic Blood Pressure : 156 mmHg (HI) Diastolic Blood Pressure : 74 mmHg NIBP Mean : 101 mmHg BP Location : Left upper extremity Blood Pressure Cuff Size : Large Height : 185 cm(Converted to: 6 ft 1 inch(es), 73 inch(es)) ALVINA ROBERTS LPN - 04/10/2014 10:44 CDT Source: [employer] Document Id: [id number]!9 documented in this encounter Plan of Treatment Not on filedocumented as of this encounter Visit Diagnoses Not on filedocumented in this encounter Additional Health Concerns Assessment Noted Time PHQ-9 Depression Total Score: 18 02/14/2013 9:53 AM CD T documented as of this encounter
--- OUTSIDE RECORDS SUMMARY | 2022-08-12 09:27 | XMS_ITS | Encounter Summary ---
:1960 Author Organization [facility] Address [address] [place] [address] Care Team Providers Name Role Phone Unavailable Primary Care Provider Unavailable Encounter Details Date Type Department Care Team Description 11/18/[address] [facility] Pratik Aguila M.D. [address] [place] [address] [phone] (Wo rk) Social History Tobacco Use Types [...] 11/20/2013 3:56 PM CDT ED Discharge Instructions [address] [address] Name: JEREMYNOEMÍ Date of : 1960 12:00 AM Visit Date: 11/18/2013 4:27 PM [facility] Number: [id number] [facility] [address] [facility] [phone] Primary Care Provider: KEVIN KILGORE MD IMPORTANT: [facility] in [place] would like to thank you for allowing us to assist you with your healthcare needs. The following includes patient education materials and informationregarding your injury/illness. Chief Complaint: Shoulder injury - Major; Shoulder pain-swelling; Right shoulder pain for about a month, getting worse Follow-Up Instructions: With: Address: When: noni Within As Needed Comments: With: Address: When: SASHA UZLETA [address] [place] [address] Business (1) Within As Needed Comments: With: Address: When: KEVIN KILGORE [address] [place] [address] Business (1) Within As Needed Comments: Patient Education Materials: [id number] ROTATOR CUFF TEAR The rotator cuff is [...] of strength in the affected arm ?? 0294-3133 [facility], [address] [place] [address]. All rights reserved. This information is not intended as a substitute for professional medical care. Always follow your healthcare professional's instructions. [id number] SHOULDER IMPINGEMENT SYNDROME The rotator cuff is [...] of strength in the affected side ?? [phone], [place] [address]. All rights reserved. This information is not intended as a substitute for professional medical care. Always follow your healthcare professional's instructions. [id number] Understanding Rotator Cuff Injuries The rotator cuff [...] surgery to repair the rotator cuff. ?? 7712-7359 [facility], [address] [place] [address]. All rights reserved. This information is not [...] home with a responsible republican. I, JEREMY, ED , or responsible republican have received [...] home with a responsible republican. I, JEREMY, ED , or responsible republican have received this information and my questions have been answered. I have discussed any challenges I see with this plan with the nurse or physician. Patient Signature or Responsible Libertarian/Relationship Date Time Provider Signature Date Time This document has images extracted. Please consider using [employer] for all your patient education needs. Source: [facility] POWERCHART Document Id: [id number] Sabra Aguila M.D. - 11/20/2013 3:56 PM CDT ED Depart Summary [facility] Emergency Department Clinical Discharge Summary PERSON INFORMATION Name NOEMÍ LUNA Age 53 Years 1960 12:00 AM Sex Male Language Sierra Leonean PCP KEVIN KILGORE MD Marital Status Visit Id Visit Reason Shoulder injury - Major; Shoulder pain-swelling; Right shoulder pain for about a month,getting worse Specialty Enc Type Emergency Med Service Emergency Medicine Referred by [facility] ED Discharge 11/18/2013 5:17 PM Tracking Id [id number] Checkout 11/18/2013 5:17 PM Checkin 11/18/2013 4:27 PM Acuity 3 -Urgent Dispo Type * Discharged to Home or Self Care Arrival 11/18/2013 4:27 PM Reg Status LOS 000 00:50 Address: [address] [place] [phone] Comment: PROVIDER INFORMATION Provider Role Provider Contact Time SABRA AGUILA MD ED Provider 11/18/13 16:35 LESLI SOTOMAYOR AMPHIBIAN CREWMEMBER Nurse 11/18/13 16:35 DIAGNOSIS Comment: PATIENT EDUCATION INFORMATION Instructions: ROTATOR CUFF TEAR; SHOULDER IMPINGEMENT SYNDROME; Understanding Rotator Cuff Injuries Follow up: With: Address: When: noni Within As Needed Comments: With: Address: When: SASHA ZULETA [address] [place] [address] Business (1) Within As Needed Comments: With: Address: When: KEVIN FERRERBANNER [address] [place] [address] Business (1) Within As Needed Comments: [facility] Document Id: [id number] documented in this encounter ED Notes Lesli Sotomayor R.N. - 11/18/2013 5:17 PM CDT ED Pain Assessment ED Pain Assessment Entered On: 11/18/2013 17:17 CDT Performed On: 11/18/2013 17:17 CDT by LESLI SOTOMAYOR RN Pain Assessment Pain Symptoms : Yes LESLI SOTOMAYOR RN - 11/18/2013 17:17 CDT Source: [facility] [employer] Document Id: [id number] CDT!3 Lesli Sotomayor RPiliN. - 11/18/2013 5:16 PM CDT ED Disposition Summary ED Disposition Summary Entered On: 11/18/2013 17:17 CDT Performed On: 11/18/2013 17:16 CDT by LESLI SOTOMAYOR AMPHIBIAN CREWMEMBER Disposition Summary Accompanied By : Alone Mode of Discharge : Ambulatory Transportation : Private vehicle Printed Discharge Instructions Given to Patient : Yes Patient Status at Discharge from ED : Unchanged LESLI SOTOMAYOR RN - 11/18/2013 17:16 CDT Source: [facility] [employer] Document Id: [id number] CDT!7 Sabra Aguila M.D. - 11/18/2013 4:59 [...] on 09/29/2012 at 52 years. Comments: 09/30/2012 CONCESSION ATTENDANT 15:06 STEVE COUCH CNP left Genital warts (ICD-9-CM 078.19) Comments: 09/30/2013 CONCESSION ATTENDANT 11:47 ANOOP MESSER PUMPER GAGER APPRENTICE onset unknown Tinea pedis* (ICD-9-CM 110.4) Comments: 09/30/2013 CONCESSION ATTENDANT 11:47 ANOOP MESSER PUMPER GAGER APPRENTICE onset unknown Tinea cruris. (ICD-9-CM 110.3) Comments: 09/30/2013 CONCESSION ATTENDANT 11:47 ANOOP MESSER PUMPER GAGER APPRENTICE onset unknown. Surgical history: Cystoscopy ([id number]) on 12/26/2009 at 49 Years. Comments: 02/20/2010 08:36 - STEVE ANDREA CNP [facility] / normal PSA, TOTAL SCREENING ([id number]) on 12/26/2009 at 49 Years. Comments: 02/20/2010 08:38 - STEVE ANDREA AERIAL PHOTOGRAPH INTERPRETER Done at [facility] / Result: 1.55 Discectomy ([id number]) on 02/19/1989 at 28 Years. Comments: 12/28/2009 09:38 - STEVE ANDREA AERIAL PHOTOGRAPH INTERPRETER lumbar L4-L5. Family history: Hypertension Father Congestive [...] AGUILA MD On: 11/20/2013 03:57 PM Source: [facility] POWERCHART Document Id: [id number]} Lesli Sotomayor RPiliNPili - 11/18/2013 4:40 PM [...] Medical ; Code: 600.00 ; Contributor System: tibdit ; Last Updated: 02/15/2010 10:00 CDT ; [...] Medical ; Code: 250.02 ; Contributor System: CmuneChart ; Last Updated: 07/24/2011 10:45 CONCESSION ATTENDANT ; Life Cycle Date: 12/05/2010 ; Life Cycle Status: Active ; Responsible Provider: STEVE ANDREA CNP; Vocabulary: ICD-9-CM Eczema (ICD-9-CM :692.9 ) Name of Problem: Eczema ; Recorder: STEVE ANDREA CNP; Confirmation: Confirmed ; Classification: Medical ; Code: 692.9 ; Contributor System: PowerChart ; Last Updated: 09/05/2010 9:56 CONCESSION ATTENDANT ; Life Cycle Date: 09/05/2010 ; Life [...] System: PowerChart ; Last Updated: 09/30/2012 15:06 CONCESSION ATTENDANT ; Life Cycle Date: 09/30/2012 ; Life [...] Comments: 09/30/2013 11:47 - IKE QUEVEDOICA R PUMPER GAGER APPRENTICE onset unknown Hyperlipidemia (ICD-9-CM :272.4 ) Name [...] Code: 695.89 ; Last Updated: 07/14/2012 14:36 CONCESSION ATTENDANT ; Life Cycle Status: Active ; Responsible [...] System: PowerChart ; Last Updated: 09/05/2010 9:56 CONCESSION ATTENDANT ; Life Cycle Date: 09/05/2010 ; Life Cycle Status: Active ; Responsible Provider: STEVE ANDREA CNP; Vocabulary: ICD-9-CM ; Comments: 09/30/2013 11:ANOOP ISAAC R PUMPER GAGER APPRENTICE onset unknown Optic disc cupping (ICD-9-CM :377.14 [...] Medical ; Code: 110.3 ; Contributor System: tibdit ; Last Updated: 06/01/2013 9:06 CDT ; Life Cycle Date: 06/01/2013 ; Life Cycle Status: Active ; Responsible Provider: MARILUZ FRAGA MD; Vocabulary: ICD-9-CM ; Comments: 09/30/2013 11:ANOOP ISAAC RLPN onset unknown Tinea pedis* (ICD-9-CM :110.4 ) Name of Problem: Tinea pedis* ; Recorder: MARILUZ FRAGA MD; Confirmation: Confirmed ; Classification: Medical ; Code: 110.4 ; Contributor System: CmuneChart ; Last Updated: 06/01/2013 9:06 CDT ; Life Cycle Date: 06/01/2013 ; Life Cycle Status: Active ; Responsible Provider: MARILUZ FRAGA MD; Vocabulary: ICD-9-CM ; Comments: 09/30/2013 11:ANOOP ISAAC R PUMPER GAGER APPRENTICE onset unknown Ulcer of skin NOS (ICD-9-CM :707.9 ) Name of Problem: Ulcer of skin NOS ; Recorder: HALEIGH SCHULTZ CNP; Confirmation: Confirmed ; Classification: Medical ; Code: 707.9 ; Contributor System: PowerChart; Last Updated: 09/18/2010 8:25 CONCESSION ATTENDANT ; Life Cycle Date: 09/18/2010 ; Life Cycle Status: Active ; Responsible Provider: HALEIGH SCHULTZ CNP; Vocabulary: ICD-9-CM ; Comments: 09/30/2013 11:47 - ANOOP QUEVEDO LPN onset unknown Urge Incontinence (ICD-9-CM :788.31 ) Name of Problem: Urge Incontinence ; Recorder: STEVE ANDREA; Confirmation: Confirmed ; Classification: Medical ; Code: 788.31 ; Contributor System: tibdit ; Last Updated: 02/20/2010 8:39 CDT ; Life Cycle Date: 02/20/2010 ; Life Cycle Status: Active ; Responsible Provider: STEVE ANDREA CNP; Vocabulary: ICD-9-CM ; Comments: 09/30/2013 11:46 - ANOOP QUEVEDO LPN onset unknown Triage Chief Complaint Description : see triage Mode of Arrival ED : Private vehicle, Ambulatory Track : Trauma Other Languages : Sierra Leonean Treatments Prior to Arrival : None LESLI [...] SOTOMAYOR RN - 11/18/2013 16:40 CDT Source: [facility] POWERCHART Document Id: [id number] CDT!39 Lesli Sotomayor R.N. - 11/18/2013 4:35 [...] Medical ; Code: 600.00 ; Contributor System: CmuneChart ; Last Updated: 02/15/2010 10:00 CDT ; [...] System: PowerChart ; Last Updated: 07/24/2011 10:45 CONCESSION ATTENDANT ; Life Cycle Date: 12/05/2010 ; Life Cycle Status: Active ; Responsible Provider: STEVE ANDREA CNP; Vocabulary: ICD-9-CM Eczema (ICD-9-CM :692.9 ) Name of Problem: Eczema ; Recorder: STEVE ANDREA CNP; Confirmation: Confirmed ; Classification: Medical ; Code: 692.9 ; Contributor System: C[employer]eChart ; Last Updated: 09/05/2010 9:56 CONCESSION ATTENDANT ; Life Cycle Date: 09/05/2010 ; Life Cycle Status: Active ; Responsible Provider: STEVE ANDREA CNP; Vocabulary: ICD-9-CM ; Comments: 09/30/2013 11:47 - ANOOP QUEVEDO LPN onset unknown Erectile dysfunction* (ICD-9-CM :607.84 ) Name of Problem: Erectile dysfunction* ; Recorder: STEVE ANDREA CNP; Confirmation: Confirmed ; Classification: Medical ; Code: 607.84 ; Contributor System: CmuneChart ; Last Updated: 12/28/2009 9:40 CDT ; [...] System: PowerChart ; Last Updated: 09/30/2012 15:06 CONCESSION ATTENDANT ; Life Cycle Date: 09/30/2012 ; Life [...] Code: 695.89 ; Last Updated: 07/14/2012 14:36 CONCESSION ATTENDANT ; Life Cycle Status: Active ; Responsible [...] System: PowerChart ; Last Updated: 09/05/2010 9:56 CONCESSION ATTENDANT ; Life Cycle Date: 09/05/2010 ; Life [...] ; Comments: 09/30/2013 11:47 ANOOP GONZALEZ R PUMPER GAGER APPRENTICE onset unknown Ulcer of skin NOS (ICD-9-CM :707.9 ) Name of Problem: Ulcer of skin NOS ; Recorder: HALEIGH SCHULTZ CNP; Confirmation: Confirmed ; Classification: Medical ; Code: 707.9 ; Contributor System: PowerChart; Last Updated: 09/18/2010 8:25 CONCESSION ATTENDANT ; Life Cycle Date: 09/18/2010 ; Life Cycle Status: Active ; Responsible Provider: HALEIGH SCHULTZ CNP; Vocabulary: ICD-9-CM ; Comments: 09/30/2013 11:ANOOP ISAAC R PUMPER GAGER APPRENTICE onset unknown Urge Incontinence (ICD-9-CM :788.31 ) Name of Problem: Urge Incontinence ; Recorder: STEVE ANDREA; Confirmation: Confirmed ; Classification: Medical ; Code: 788.31 ; Contributor System: PowerChart ; Last Updated: 02/20/2010 8:39 CDT ; Life Cycle Date: 02/20/2010 ; Life Cycle Status: Active ; Responsible Provider: STEVE ANDREA CNP; Vocabulary: ICD-9-CM ; Comments: 09/30/2013 11:46 - ANOOP QUEVEDO PUMPER GAGER APPRENTICE onset unknown Triage Vital Signs Assessed : [...] Ambulatory Track : Trauma Other Languages : Sierra Leonean Treatments Prior to Arrival : None STEPHANIE [...] CDT DCP GENERIC CODE Tracking Group : [facility] ED Tracking Acuity : 3 -Urgent LESLI [...] SOTOMAYOR RN - 11/18/2013 16:35 CDT Source: [employer] Document Id: [id number] CDT!16 documented in this encounter Miscellaneous Notes Miscellaneous - Lesli Sotomayor R.N. - 11/18/2013 5:17 PM CDT Valuables/Belongings Valuables/Belongings Entered On: 11/18/2013 17:17 CDT Performed On: 11/18/2013 17:17 CDT by LESLI SOTOMAYOR RN Valuables/Belongings Home Medication Disposition : None brought in with patient LESLI SOTOMAYOR RN - 11/18/2013 17:17 CDT Source: [employer] Document Id: [id number] CDT!3 Miscellaneous - Lesli Sotomayor R.N. - [...] Control : 7 Lynx Visit Level : 83799 Level 3 Treatments Prior to Arrival : None LESLI SOTOMAYOR RN - 11/18/2013 17:17 CDT Source: [facility] POWERCHART Document Id: [id number] CDT!17 documented in this encounter Plan of Treatment Not on filedocumented as of this encounter Visit Diagnoses Not on filedocumented in this encounter Additional Health Concerns Assessment Noted Time PHQ-9 Depression Total Score: 18 02/14/2013 9:53 AM CD T documented as of this encounter
--- OUTSIDE RECORDS SUMMARY | 2022-08-12 09:27 | XMS_ITS | Encounter Summary ---
:1960 Author Organization [facility] Address [address] [place] [address] Care Team Providers Name Role Phone Unavailable Primary Care Provider Unavailable Encounter Details Date Type Department Care Team Description 05/03/2014 Hospital Encounter HX [facility] [place] Cintia Aguirre M.D. [address] [place] [phone] (Wo rk) Social History Tobacco Use [...] Cobb M.D. - 05/03/2014 6:06 PM CDT [id number] CHIEF COMPLAINT/REASON FOR VISIT Follow up blood [...] to auscultation bilaterally. EXTREMITIES: He has 3+ [place] edema past his knees right greater than [...] KILGORE MD On: 05/12/2014 10:19 AM Source: [facility] MHSDOLBEYNONRADSYS Document Id: [id number] documented in this encounter Miscellaneous Notes Miscellaneous - Cintia Cobb M.D. - 05/11/2014 2:16 PM CDT Normal Results Letter 11 May 2014 LAZ LUNA [address] [place] [id number] Dear ED CARLYLE, Your A1c has gone [...] 7.65 10/18/2013 - <=5.6 Sincerely, CINTIA KILGORE [id number] [address] Electronic Signature Electronically Signed By: CINTIA KILGORE MD On: 11 May 2014 This document has images extracted. Source: [facility] [employer] Document Id: [id number] Electronically signed by Dayami [facility] Synthetic Filament Extruder [id number] at 02/03/2017 6:55 PM CDT Lulycellaneous - [...] rechecked in 3 months. Cintia Segura Source: [facility] NanoogoCHART Document Id: [id number] Electronically signed by Dayami, [facility] Synthetic Filament Extruder [id number] at 02/03/2017 6:55 PM CDT Miscellaneous - Cintia Cobb M.D. - 05/03/2014 6:49 PM CDT Ambulatory Patient Summary [address] [phone] Visit Information Name: CARLYLE LAZ [facility] Number: [id number] Current Date: 05/03/2014 18:49:04 Physicians [...] hypertension This is a CHANGE Routed to [address] [address] docusate-senna (Dok Plus) 2 Tablet(s), Oral, once a day furosemide (Lasix 20 mg oral tablet) See Instructions 1 tab(s) PO in morning and 2 tab in evening Routed to [address] [address] hydrochlorothiazide (hydrochlorothiazide 25 mg oral [...] appointment detail needed. Your Goals/Additional instructions: Source: [facility] POWERCHART Document Id: [id number] Miscellaneous - Cintia Cobb M.D. - 05/03/2014 6:49 PM CDT Ambulatory Discharge Medication List [address] [place] [phone] Visit Information Name: LAZ LUNA [facility] Number: [id number] Visit Date: 05/03/2014 18:49:02 Attending [...] hypertension This is a CHANGE Routed to [address] [address] docusate-senna (Dok Plus) 2 Tablet(s), Oral, once a day furosemide (Lasix 20 mg oral tablet) See Instructions 1 tab(s) PO in morning and 2 tab in evening Routed to [address] [address] hydrochlorothiazide (hydrochlorothiazide 25 mg oral [...] MD Signed On:03-MAY-2014 18:48:42 Additional Information: Source: [facility] [employer] Document Id: [id number] Miscellwalter - Anne Marie Tuttle L.P.N. - [...] LPN, RT - 05/03/2014 18:24 CDT [facility] Document Id: [id number] CDT!8 Lulycellaneous - Anne Marie Tuttle LPiliP.N. - 05/03/2014 6:08 PM CDT Adult Back Office Medical Assistant Intake/History Adult Back Office Medical Assistant Intake/History Entered On: 05/03/2014 18:12 CDT Performed [...] Preferred Communication Mode : Verbal Languages : Belarusian Is Patient Female and 13-50 no hysterectomy [...] LPN, RT - 05/03/2014 18:08 CDT Source: [facility] POWERCHART Document Id: [id number] CDT!38 documented in this encounter Plan of [...]
--- OUTSIDE RECORDS SUMMARY | 2022-08-12 09:27 | XMS_ITS | Encounter Summary ---
:1960 Author Organization [facility] Address [address] [place] [address] Care Team Providers Name Role Phone Unavailable Primary Care Provider Unavailable Encounter Details Date Type Department Care Team Description 07/13/2014 Hospital Encounter [facility] Tigist Cosme M.D. [address] [place], [place] [phone] (Wo rk) Social History [...] 185 cm (6' 0.84) 07/13/2014 10:24 AM FLEET ADMINISTRATOR Body Mass Index - - documented in this encounter Plan of Treatment Not on filedocumented as of this encounter Visit Diagnoses Not on filedocumented in this encounter Additional Health Concerns Assessment Noted Time PHQ-9 Depression Total Score: 18 02/14/2013 9:53 AM CD T documented as of this encounter
--- OUTSIDE RECORDS SUMMARY | 2022-08-12 09:28 | XMS_ITS | Encounter Summary ---
:1960 Author Organization [facility] Address [address] [place] [address] Care Team Providers Name Role Phone Unavailable Primary Care Provider Unavailable Encounter Details Date Type Department Care Team Description 07/26/2013 Hospital Encounter [facility]X [facility] Marino Larios P.A.-C., P.A. [address] [place] [phone] (Wo rk) Social History Tobacco Use Types Packs/Day Years Used Date Smoking Tobacco: Never Assessed Sex Assigned at Date Recorded Not on file documented as of this encounter Last Filed Vital Signs Vital Sign Reading Time Taken Comments Blood Pressure 172/93 07/26/2013 11:50 AM CLINICAL NURSING INSTRUCTOR Pulse 56 07/26/2013 11:01 AM CLINICAL NURSING INSTRUCTOR Temperature - - Respiratory Rate 14 07/26/2013 11:01 AM CLINICAL NURSING INSTRUCTOR Oxygen Saturation - - Inhaled Oxygen Concentration - - Weight 153 kg (337 lb 8.4 oz) 07/26/2013 11:01 AM CLINICAL NURSING INSTRUCTOR Height 183 cm (6' 0.05) 07/26/2013 11:01 AM CLINICAL NURSING INSTRUCTOR Body Mass Index 45.72 07/26/2013 11:01 AM CLINICAL NURSING INSTRUCTOR documented in this encounter Progress Notes Dyan Larios - 07/26/2013 10:45 AM CST [id number] CHIEF COMPLAINT/REASON FOR VISIT This is a 53-year-old male seen today new to our clinic after having recently been fired from the [facility] and [facility]. HISTORY OF PRESENT ILLNESS He states that he has been going through a program through the bariatric clinic in [place] to get set up for gastric bypass. He had a meeting with a dietitian and that is when the problem started. Hestates that he did not get along with the dietitian in [place]. He does have one dietitian visit left of his 6 and he actually states that he has this scheduled in [place] and plans to follow up down there for that tomorrow. He also sees someone in behavioral health for something similar to the LEARN Program. This is in [place] most recently he has been having some [...] DYAN LARIOS On: 08/02/2013 09:44 AM Source: [facility] MHSDOLBEYNONRADSYS Document Id: [id number] ICAL NURSING INSTRUCTOR documented in this encounter Miscellaneous Notes Miscellaneous - Dyan Larios - 07/26/2013 12:15 PM CST Ambulatory Patient Summary [address] [address] Visit Information Name: LAZ LUNA [facility] Number: [id number] Current Date: 07/26/2013 12:15:01 Physicians [...] appointment detail needed. Your Goals/Additional instructions: Source: [facility] POWERCHART Document Id: [id number] ICAL NURSING INSTRUCTOR Miscellaneous - Dyan Larios - 07/26/2013 12:15 PM CST Ambulatory Depart Summary [address] [address] Visit Information Name: LAZ LUNA [facility] Number: [id number] Visit Date: 07/26/2013 12:15:00 Attending [...] your provider for clarification. Additional Information: Source: [facility] [employer] Document Id: [id number] ICAL NURSING INSTRUCTOR Lulycellwalter - Tali Torres L.P.N. - 07/26/2013 11:50 AM CST Ambulatory Vitals Height Weight Ambulatory Vitals Height Weight Entered On: 07/26/2013 11:51 CLINICAL NURSING INSTRUCTOR Performed On: 07/26/2013 11:50 CLINICAL NURSING INSTRUCTOR by TALI TORRES Vitals/Ht/Wt Systolic Blood Pressure : 172 mmHg (>HHI) Diastolic Blood Pressure : 93 mmHg (>HHI) NIBP Mean : 119 mmHg BP Location : Right upper extremity Blood Pressure Cuff Size : Large TALI TORRES - 07/26/2013 11:50 CLINICAL NURSING INSTRUCTOR Source: [facility] [employer] Document Id: [id number] CLINICAL NURSING INSTRUCTOR!7 ICAL NURSING INSTRUCTOR Lulycellwalter - Tali Torres L.P.N. - 07/26/2013 11:01 AM CST Adult Hospital Receptionist Intake/History Adult Hospital Receptionist Intake/History Entered On: 07/26/2013 11:07 CLINICAL NURSING INSTRUCTOR Performed On: 07/26/2013 11:01 CLINICAL NURSING INSTRUCTOR by TALI TORRES Intake Chief Complaint : [...] 45.72 kg/m2 TALI TORRES - 07/26/2013 11:01 CLINICAL NURSING INSTRUCTOR General Info Information Given By : Patient Languages : Persian TALI TORRES - 07/26/2013 11:01 CLINICAL NURSING INSTRUCTOR Subjective Pain Symptoms : No TALI TORRES - 07/26/2013 11:01 CLINICAL NURSING INSTRUCTOR Dependent Habits Tobacco Use/Currently Using : No Smoking Status : Never smoker Alcohol Use : No TALI TORRES - 07/26/2013 11:01 CLINICAL NURSING INSTRUCTOR Source: [employer] Document Id: [id number] CLINICAL NURSING INSTRUCTOR!27 ICAL NURSING INSTRUCTOR documented in this encounter Plan of Treatment Not on filedocumented as of this encounter Visit Diagnoses Not on filedocumented in this encounter Additional Health Concerns Assessment Noted Time PHQ-9 Depression Total Score: 18 02/14/2013 9:53 AM CD T documented as of this encounter
--- OUTSIDE RECORDS SUMMARY | 2022-08-12 09:28 | XMS_ITS | Encounter Summary ---
:[address] [facility] Address [address] [place] [address] Care Team Providers Name Role Phone Unavailable Primary Care Provider Unavailable Encounter Details Date Type Department Care Team Description 07/11/2013 Hospital Encounter [facility]X [facility] Cindy Moy, Soumya PRN, C.N.P. [address] [place], [place] [phone] (Wo rk) Social History Tobacco Use Types Packs/Day Years Used Date Smoking Tobacco: Never Assessed Sex Assigned at Date Recorded Not on file documented as of this encounter Plan of Treatment Not on filedocumented as of this encounter Procedures Procedure Name Priority Date/Time Associated Diagnosis Comme nts LIPID PANEL, S Routine 07/11/2013 9:41 AM Results for this CROZE CUTTER HELPER procedure are i n the results section. BASIC METABOLIC Routine 07/11/2013 9:41 AM Result s for this PANEL, S/P CROZE CUTTER HELPER procedure are i n the results section. documented in this encounter Results (ABNORMAL) BMP (Basic Metabolic Panel) (07/11/2013 9:41 AM CROZE CUTTER HELPER) P athologist Signature BUN (Blood Urea 20 [...] / Volume Laterality Blood 07/11/2013 9:41 AM CROZE CUTTER HELPER Cindy Moy APRN, C.N.P. LAB BLOOD ADD-ON Performing Organization Address City/State/ZIP Code Phon e Number POWERCHART Lipid Panel (07/11/2013 9:41 AM CROZE CUTTER HELPER) [facility] Time Signature Cholesterol, Total 135 0 - 200 POWERCHART MGDL HX HDL 46.0 40.0 - POWERCHART 60.0 MGDL Triglycerides 145 0 - 150 POWERCHART MGDL Calculated LDL 60 0 - 100 POWERCHART MGDL Specimen (Source) Anatomical Collection Method Collection Time Re ceived Time Location / / Volume Laterality Blood 07/11/2013 9:41 AM CROZE CUTTER HELPER Cindy Moy APRN, C.N.P. LAB BLOOD ADD-ON Performing Organization Address City/State/ZIP Code Phon e Number POWERCHART documented in this encounter Visit Diagnoses Not on filedocumented in this encounter Additional Health Concerns Assessment Noted Time PHQ-9 Depression Total Score: 18 02/14/2013 9:53 AM CD T documented as of this encounter
--- OUTSIDE RECORDS SUMMARY | 2022-08-12 09:28 | XMS_ITS | Encounter Summary ---
:1960 Author Organization [facility] Address [address] [place] [address] Care Team Providers Name Role Phone Unavailable Primary Care Provider Unavailable Encounter Details Date Type Department Care Team Description 07/13/2013 Hospital Encounter HX [facility] Mehreen Perez, M.S.N., R.N., A.C.N.S.-B.C. [address] [place] [phone] (Wo rk) Social History Tobacco Use [...]
--- OUTSIDE RECORDS SUMMARY | 2022-08-12 09:28 | XMS_ITS | Encounter Summary ---
:1960 Author Organization [facility] Address [address] [place] [address] Care Team Providers Name Role Phone Unavailable Primary Care Provider Unavailable Encounter Details Date Type Department Care Team Description 09/30/2013 Hospital Encounter HX [facility] Cintia Aguirre M.D. [address] [place] [phone] (Wo rk) Social History Tobacco Use Types Packs/Day Years Used Date Smoking Tobacco: Never Assessed Sex Assigned at Date Recorded Not on file documented as of this encounter Last Filed Vital Signs Vital Sign Reading Time Taken Comments Blood Pressure 167/85 09/30/2013 12:07 PM WHITING CAN WORKER Pulse 56 09/30/2013 12:07 PM WHITING CAN WORKER Temperature - - Respiratory Rate 16 09/30/2013 11:38 AM WHITING CAN WORKER Oxygen Saturation - - Inhaled Oxygen Concentration - - Weight 153 kg (336 lb 6.8 oz) 09/30/2013 11:38 AM WHITING CAN WORKER Height 183 cm (6' 0.05) 09/30/2013 11:38 AM WHITING CAN WORKER Body Mass Index 45.57 09/30/2013 11:38 AM WHITING CAN WORKER documented in this encounter Progress Notes Cintia Cobb M.D. - 09/30/2013 11:33 AM CST [id number] CHIEF COMPLAINT/REASON FOR VISIT Followup hypertension. HISTORY [...] Victoza and Lantus. He follows with an laundry housekeeper in [place] and is also currently going through the [...] due for repeat. He does see an laundry housekeeper. At this time we are going to increase his Lantus to 58 units at bedtime and we will continue to monitor. Other lab work is up-to-date. He also requested we refill his test strips. Patient Education Ready to learn No apparent learning barriers were identified Learning preferences include listening Explained diagnosis and treatment plan Patient/Child/Caregiver expressed understanding of the content Cintia Song M.D./[facility] Electronically Signed By: CINTIA KILGORE MD On: 10/04/2013 07:28 AM Source: [facility] MHSDOLBEYNONRADSYS Document Id: [id number] ING CAN WORKER documented in this encounter Miscellaneous Notes Miscellaneous - Conversion, Historical Provider Ser - 10/03/2013 2:42 PM WHITING CAN WORKER Med Management Document Contains Addenda Addendum by CINTIA KILGORE MD on 04 October 2013 07:10:57 WHITING CAN WORKER From: CINTIA KILGORE MD Sent: 10/04/2013 07:10:56 WHITING CAN WORKER Subject: RE:Med Management Approved Order:simvastatin (simvastatin 40 mg oral tablet) 1 tab(s) PO Bedtime Qty: 90 tab(s) Refills: 2 Route To Pharmacy [facility][id number] Signed by CINTIA KILGORE MD 10/04/2013 07:10:49 From: OLIVIA BECERRA V To: CINTIA KILGORE MD; OLIVIA BECERRA V; Sent: 10/03/2013 14:42:45 WHITING CAN WORKER Subject: Med Management On hold pending signature Order:simvastatin (simvastatin 40 mg oral tablet) 1 tab(s) PO Bedtime Qty: 90 tab(s) Refills: 2 Route To Pharmacy [facility] #[id number] pt had lipid panel done 07/11/13 in [place] .This was last filled 04/08 by provider there Source: [facility] POWERCHART Document Id: [id number] Miscellaneous - Cintia Cobb M.D. - 09/30/2013 12:30 PM WHITING CAN WORKER Ambulatory Patient Summary [address] [address] Visit Information Name: LAZ LUNA [facility] Number: [id number] Current Date: 09/30/2013 12:30:51 [...] Oral, once a day New Routed to [address] [address] docusate-senna (Dok Plus) 2 Tablet(s), Oral, once [...] appointment detail needed. Your Goals/Additional instructions: Source: [facility] POWERCHART Document Id: [id number] ING CAN WORKER Miscellaneous - Cintia Cobb M.D. - 09/30/2013 12:30 PM WHITING CAN WORKER Ambulatory Depart Summary [facility] [address] [place] [address] Visit Information Name: LAZ LUNA [facility] Number: [id number] Visit Date: 09/30/2013 12:30:45 [...] Oral, once a day New Routed to [address] [address] docusate-senna (Dok Plus) 2 Tablet(s), [...] in case of emergency. Additional Information: Source: [facility] POWERCHART Document Id: [id number] ING CAN WORKER Osbaldo - Anoop Mujica L.P.N. - 09/30/2013 12:07 PM CST Ambulatory Vitals Height Weight Ambulatory Vitals Height Weight Entered On: 09/30/2013 12:08 WHITING CAN WORKER Performed On: 09/30/2013 12:07 WHITING CAN WORKER by ANOOP MUJICA LPN Vitals/Ht/Wt Peripheral Pulse Rate : 56 /min (LOW) Systolic Blood Pressure : 167 mmHg (>HHI) Diastolic Blood Pressure : 85 mmHg (Comment: Daniel B/P Average [ANOOP MUJICA LPN - 09/30/2013 12:07 WHITING CAN WORKER] ) NIBP Mean : 112 mmHg ANOOP MUJICA LPN - 09/30/2013 12:07 WHITING CAN WORKER Source: [facility] BionovoCHART Document Id: [id number] WHITING CAN WORKER!6 ING CAN WORKER Osbaldo - Anoop Mujica LPiliP.N. - 09/30/2013 11:38 AM CST Adult Tractor Operator Intake/History Adult Tractor Operator Intake/History Entered On: 09/30/2013 11:44 WHITING CAN WORKER Performed On: 09/30/2013 11:38 WHITING CAN WORKER by MUJICA, ANOOP R SEMI CONDUCTOR ASSEMBLER Intake Chief Complaint : Recheck couple of [...] kg/m2 ANOOP MUJICA LPN - 09/30/2013 11:38 WHITING CAN WORKER General Info Information Given By : Patient Preferred Communication Mode : Verbal Languages : Armenian ANOOP MUJICA LPN - 09/30/2013 11:38 WHITING CAN WORKER Subjective Pain Symptoms : No ANOOP MUJICA LPN - 09/30/2013 11:38 WHITING CAN WORKER Dependent Habits Tobacco Use/Currently Using : No Smoking Status : Never smoker ANOOP MUJICA LPN - 09/30/2013 11:38 WHITING CAN WORKER Tobacco Use Grid Last Use : never ANOOP MUJICA LPN 09/30/2013 11:38 WHITING CAN WORKER Caffeine Use Grid Caffeine Use : Current Type : Coffee, Soft drinks Frequency : Weekly Amount : soda- weekly; coffee- 1x/week ANOOP MUJICA LPN - 09/30/2013 11:38 WHITING CAN WORKER Recreational Drug Use Grid Drug Use : None ANOOP MUJICA LPN 09/30/2013 11:38 WHITING CAN WORKER Source: [facility] POWERCHART Document Id: [id number] WHITING CAN WORKER!39 ING CAN WORKER documented in this encounter Plan of Treatment Not on filedocumented as of this encounter Visit Diagnoses Not on filedocumented in this encounter Additional Health Concerns Assessment Noted Time PHQ-9 Depression Total Score: 18 02/14/2013 9:53 AM CD T documented as of this encounter
--- OUTSIDE RECORDS SUMMARY | 2022-08-12 09:28 | XMS_ITS | Encounter Summary ---
:1960 Author Organization [facility] Address [address] [place] [address] Care Team Providers Name Role Phone Unavailable [...]
--- OUTSIDE RECORDS SUMMARY | 2022-08-12 09:28 | XMS_ITS | Encounter Summary ---
:1960 Author Organization [facility] Address [address] [place] [address] Care Team Providers Name Role Phone Unavailable [...] Lucero Ed.D. - 03/02/2013 12:00 AM CDT [id number] LETTER Laz Luna [address] [facility] [address] [facility] [phone] March 02, 2013 Dear Ed: Thank you for requesting an appointment for services at the [facility] in [place] [facility]. Your Initial Evaluation appointment has been scheduled in our Psychology Department with: Friday, May 03, 2013 at 12:45 PM for Paperwork & Registration followed by a 45 minute appointment at 1:30 PM with your provider: Sebas Soares Asp, Ed.D., L.P. [facility] Your appointment with your provider will [...] are located on the 3rd floor of [facility]) at [address] [place] [address]. If the above scheduled appointment is not convenient, please contact our office as soon as possible at or to reschedule. We trust that your experience with us will be a pleasant and worthwhile one. Sincerely, [facility] Contact Information March 02, 2013 Intake done by: [facility]#: [id number] NAME: Laz Luna SSN: [id number] : 1960 Age: [age] year old Sex: male Spouse/ S.O.: - Parent/Guardian: - ADDRESS: [address] [place] [phone] Phone Numbers: [phone] (home) Phone Contact: Home: Yes Messages: Yes Written Contact: Home: Yes Work: No No coverage found. Court Ordered/Litigation No Referral Information Caller: Self Referred by: [place] Location: [place] Referred to: Dr. Lucero Prior Contact with [facility] [employer]? No Date: - Doctor seen: NA Reason: Learn Program Length and/or Severity of Problem: - Past or Current Mental Health Provider: n/a Primary Care Physician: No primary provider on file. Medication: n/a Dosage: n/a Appointments Appt. With: Sebas Soares Asp, Ed.D., Jun [facility] Initial: 05/03/13 @ 1:30PM F/U: - 3rd.: - Intake Packet Sent on __03/02/13 Wait List Yes Source: MANNY COSTELLOHXTRANSXRTFSYS Document Id: [id number] documented in this encounter Plan of Treatment Not on filedocumented as of this encounter Visit Diagnoses Not on filedocumented in this encounter Additional Health Concerns Assessment Noted Time PHQ-9 Depression Total Score: 18 02/14/2013 9:53 AM CD T documented as of this encounter
--- OUTSIDE RECORDS SUMMARY | 2022-08-12 09:28 | XMS_ITS | Encounter Summary ---
:1960 Author Organization [facility] Address [address] [place] [address] Care Team Providers Name Role Phone Unavailable Primary Care Provider Unavailable Encounter Details Date Type Department Care Team Description 07/11/2013 Hospital Encounter [facility]X [facility] Bhumi Andrea, HAKEEM, C.N.P. [address] [place] [phone] (Wo rk) Social History Tobacco Use Types Packs/Day Years Used Date Smoking Tobacco: Never Assessed Sex Assigned at Date Recorded Not on file documented as of this encounter Last Filed Vital Signs Vital Sign Reading Time Taken Comments Blood Pressure 170/96 07/11/2013 9:22 AM INDUSTRIAL TRUCK MECHANIC Pulse 68 07/11/2013 8:56 AM INDUSTRIAL TRUCK MECHANIC Temperature - - Respiratory Rate 16 07/11/2013 8:56 AM INDUSTRIAL TRUCK MECHANIC Oxygen Saturation - - Inhaled Oxygen Concentration - - Weight 154 kg (338 lb 6.5 oz) 07/11/2013 8:56 AM INDUSTRIAL TRUCK MECHANIC Height - - Body Mass Index 46.49 07/04/2013 3:11 PM CDT documented in this encounter Progress Notes Stvee Andrea APRN, C.N.P. - 07/11/2013 8:43 AM CST [id number] CHIEF COMPLAINT/REASON FOR VISIT 1. Hypertension. 2. Diabetes type 2 uncontrolled. HISTORY OF PRESENT ILLNESS 1. Ed states he has been monitoring his blood pressure. He has been seen at [facility] for dietetic counseling for [...] and results need to be sent to [facility]. I explained to him that [facility] can see his lab results in the [...] ANDREA CNP On: 07/12/2013 01:31 PM Source: [facility] MHSDOLBEYNONRADSYS Document Id: [id number] STRIAL TRUCK MECHANIC documented in this encounter Miscellaneous Notes Miscellaneous - Alysia Villafana R.N. - 07/19/2013 9:45 AM CST Medication Refill Msg Document Contains Addenda Addendum by ALYSIA VILLAFANA on 19 July 2013 11:47:50 INDUSTRIAL TRUCK MECHANIC done Addendum by STEVE ANDREA CNP on 19 July 2013 11:39:36 INDUSTRIAL TRUCK MECHANIC From: STEVE ANDREA CNP To: ALYSIA VILLAFANA; Sent: 07/19/2013 11:39:36 INDUSTRIAL TRUCK MECHANIC Subject: RE: Medication Refill Msg Yes, Ok to refill for 30 days from July 14, 2013. From: ALYSIA VILLAFANA To: STEVE ANDREA CNP; Sent: 07/19/2013 09:45:05 INDUSTRIAL TRUCK MECHANIC Subject: Medication Refill Msg Caller is: ( ) Patient ( ) Mother ( ) Father ( ) Spouse ( ) Daughter ( ) Son ( ) Pharmacy ( ) Other: Provider: Pharmacy: [facility] Name of Medications Needing Refill:can I fill metformin for this patient? Last Refill Date: Additional Information:see 07-15-13 phone message Last / Future Appointment:07-11-13 Disposition: ( ) Send to Pharmacy ( ) Call to Pharmacy ( ) Patient will brain picker Script ( ) Mail Rx to Patient Source: [facility] POWERCHART Document Id: [id number] Electronically signed by Day[facility] Earthmoving Plant Operator [id number] at 02/04/2017 1:28 AM CDT Miscellaneous - Steve Andrea, HAKEEM, C.N.P. - 07/11/2013 2:11 PM CST Schedule Follow-Up Visit 11 July 2013 NOEMÍ LNUA [address] [place] [address] [address] [facility] [phone] Dear NOEMÍ LUNA, Thank you for choosing [facility] for your health care needs. [...] (mL/min) >60 07/11/2013 Sincerely, STEVE ANDREA [address] [place] [address] Electronic Signature Electronically Signed By: STEVE ANDREA CNP On: 11 July 2013 This document has images extracted. Source: [facility] POWERCHART Document Id: [id number] Miscellaneous - Steve Andrea, HAKEEM, C.N.P. - 07/11/2013 9:27 AM CST Ambulatory Patient Summary [address] [facility] [place] [address] Visit Information Name: NOEMÍ LUNA [facility] Number: [id number] Current Date: 07/11/2013 09:27:48 [...] appointment detail needed. Your Goals/Additional instructions: Source: [facility] POWERCHART Document Id: [id number] STRIAL TRUCK MECHANIC Miscellaneous - Steve Andrea APRN, C.N.P. - 07/11/2013 9:27 AM CST Ambulatory Depart Summary [id number] [place] [address] Visit Information Name: CARLYLE NOEMÍ [facility] Number: [id number] Visit Date: 07/11/2013 09:27:47 [...] your provider for clarification. Additional Information: Source: [facility] NanoTuneCHART Document Id: [id number] STRIAL TRUCK MECHANIC Miscellaneous - Steve Andrea APRN, C.N.P. - 07/11/2013 9:22 AM CST Ambulatory Vitals Height Weight Ambulatory Vitals Height Weight Entered On: 07/11/2013 9:22 INDUSTRIAL TRUCK MECHANIC Performed On: 07/11/2013 9:22 INDUSTRIAL TRUCK MECHANIC by STEVE ANDREA CNP Vitals/Ht/Wt Systolic Blood Pressure : 170 mmHg (>HHI) Diastolic Blood Pressure : 96 mmHg (>HHI) NIBP Mean : 121 mmHg STEVE ANDREA CNP - 07/11/2013 9:22 INDUSTRIAL TRUCK MECHANIC Source: [facility] tamyca Document Id: [id number] INDUSTRIAL TRUCK MECHANIC!5 STRIAL TRUCK MECHANIC Miscellaneous - Marcial Chavez L.P.NPili - 07/11/2013 8:56 AM CST Adult Bottom Turner Intake/History Adult Bottom Turner Intake/History Entered On: 07/11/2013 8:59 INDUSTRIAL TRUCK MECHANIC Performed On: 07/11/2013 8:56 INDUSTRIAL TRUCK MECHANIC by MARCIAL CHAVEZ Intake Chief Complaint : [...] 153.5 kg MARCIAL CHAVEZ - 07/11/2013 8:56 INDUSTRIAL TRUCK MECHANIC General Info Information Given By : Patient Languages : Hungarian MARCIAL CHAVEZ - 07/11/2013 8:56 INDUSTRIAL TRUCK MECHANIC Subjective Pain Symptoms : No MARCIAL CHAVEZ - 07/11/2013 8:56 INDUSTRIAL TRUCK MECHANIC Dependent Habits Tobacco Use/Currently Using : No Smoking Status : Never smoker MARCIAL CHAVEZ - 07/11/2013 8:56 INDUSTRIAL TRUCK MECHANIC Tobacco Use Grid Last Use : non MARCIAL CHAVEZ - 07/11/2013 8:56 INDUSTRIAL TRUCK MECHANIC Caffeine Use Grid Caffeine Use : Current Type : Coffee, Soft drinks Frequency : Weekly Amount : soda- weekly; coffee- 1x/week MARCIAL CHAVEZ - 07/11/2013 8:56 INDUSTRIAL TRUCK MECHANIC Recreational Drug Use Grid Drug Use : None MARCIAL CHAVEZ - 07/11/2013 8:56 INDUSTRIAL TRUCK MECHANIC Source: [facility] POWERCHART Document Id: [id number] INDUSTRIAL TRUCK MECHANIC!31 STRIAL TRUCK MECHANIC documented in this encounter Plan of Treatment Not on filedocumented as of this encounter Procedures Procedure Name Priority Date/Time Associated Comments Diagnosis ALBUMIN, RANDOM, U Routine 07/11/2013 9:42 Result s for this AM INDUSTRIAL TRUCK MECHANIC procedure are i n the results section. ASPARTATE Routine 07/11/2013 9:41 Results for this AMINOTRANSFERASE (AST), AM INDUSTRIAL TRUCK MECHANIC proc edure are in S/P the results section. documented in this encounter Results (ABNORMAL) Microalbumin, Random, Urine (07/11/2013 9:42 AM INDUSTRIAL TRUCK MECHANIC) P athologist Signature HXU Albumin % 282 MGDL POWERCHART Creatinine, 126 MGDL POWERCHART Random, U Albumin/Creati 224 (H) 0 - 17 POWERCHART nine Ratio MGGM Specimen (Source) Anatomical Collection Method Collection Time Re ceived Time Location / / Volume Laterality Urine 07/11/2013 9:42 AM INDUSTRIAL TRUCK MECHANIC Kelvin Grier APRNNPiliPPili LAB URINE ORDERABLES Performing Organization Address City/State/ZIP Code Phon e Number POWERCHART AST (Aspartate Aminotransferase) (07/11/2013 9:41 AM INDUSTRIAL TRUCK MECHANIC) [facility] Time Signature Aspartate 20 8 - 48 POWERCHART Aminotransferase UNITL (AST), S Specimen (Source) Anatomical Collection Method Collection Time Re ceived Time Location / / Volume Laterality Blood 07/11/2013 9:41 AM INDUSTRIAL TRUCK MECHANIC Steve Andrea APRN C.N.P. LAB BLOOD ADD-ON Performing Organization Address City/State/ZIP Code Phon e Number POWERCHART documented in this encounter Visit Diagnoses Not on filedocumented in this encounter Additional Health Concerns Assessment Noted Time PHQ-9 Depression Total Score: 18 02/14/2013 9:53 AM CD T documented as of this encounter
--- OUTSIDE RECORDS SUMMARY | 2022-08-12 09:28 | XMS_ITS | Encounter Summary ---
:1960 Author Organization [facility] Address [address] [place] [address] Care Team Providers Name Role Phone Unavailable Primary Care Provider Unavailable Encounter Details Date Type Department Care Team Description 10/18/2013 Hospital Encounter [facility]X [facility] Cintia Cobb M.D. [address] [place] [phone] (Wo rk) Social History Tobacco Use Types Packs/Day Years Used Date Smoking Tobacco: Never Assessed Sex Assigned at Date Recorded Not on file documented as of this encounter Plan of Treatment Not on filedocumented as of this encounter Procedures Procedure Name Priority Date/Time Associated Diagnosis Comme nts POTASSIUM, S/P Routine 10/18/2013 10:37 AM Result s for this ROASTMASTER procedure are i n the results section. HEMOGLOBIN A1C, B Routine 10/18/2013 10:37 AM Res ults for this ROASTMASTER procedure are i n the results section. documented in this encounter Results Potassium (10/18/2013 10:37 AM ROASTMASTER) P athologist Signature Potassium, S 4.0 3.6 - 4.8 POWERCHART MMOLL Specimen (Source) Anatomical Collection Method Collection Time Re ceived Time Location / / Volume Laterality Blood 10/18/2013 10:37 AM ROASTMASTER Cintia Copeland M.D. LAB BLOOD ADD-ON Performing Organization Address City/State/ZIP Code Phon e Number POWERCHART (ABNORMAL) Hemoglobin A1c (10/18/2013 10:37 AM ROASTMASTER) Analysis Performed At Patho logist Time Signature Hemoglobin A1c, 7.65 (H) 4.00 - POWERCHART B 6.00 Specimen (Source) Anatomical Collection Method Collection Time Re ceived Time Location / / Volume Laterality Blood 10/18/2013 10:37 AM ROASTMASTER Cintia Copeland M.D. LAB BLOOD ADD-ON Performing Organization Address City/State/ZIP Code Phon e Number POWERCHART documented in this encounter Visit Diagnoses Not on filedocumented in this encounter Additional Health Concerns Assessment Noted Time PHQ-9 Depression Total Score: 18 02/14/2013 9:53 AM CD T documented as of this encounter
--- OUTSIDE RECORDS SUMMARY | 2022-08-12 09:28 | XMS_ITS | Encounter Summary ---
:1960 Author Organization [facility] Address [address] [place] [address] Care Team Providers Name Role Phone Unavailable Primary Care Provider Unavailable Encounter Details Date Type Department Care Team Description 07/12/2013 Hospital Encounter HX [facility] INTERNMED Aranza Ramirez P.AJoby [address] [place] [phone] (Wo rk) Social History Tobacco Use Types Packs/Day Years Used Date Smoking Tobacco: Never Assessed Sex Assigned at Date Recorded Not on file documented as of this encounter Nursing Notes Chhaya Ramirez - 07/12/2013 12:00 AM CST [id number] CHIEF COMPLAINT/REASON FOR VISIT Medical Nutrition Therapy [...] from the room and proceeded to get primer supervisor, Jeovanny Jansen M.D. After discussion with Dr. Jansen, Dr. Jansen had a discussion with the patient regarding his inappropriateness. Education session was, therefore, terminated and there was no further time spent with patient. ADMINISTRATIVE BILLING Total Time: Approximately 5 minutes. Chhaya Allred R.D., L.D./sweetie Electronically Signed By: CHHAYA ALLRED On: 07/13/2013 03:41 PM Source: [facility] MHSDOLBEYNONRADSYS Document Id: [id number] CONSTRUCTION INSPECTOR documented in this encounter Plan of Treatment Not on filedocumented as of this encounter Visit Diagnoses Not on filedocumented in this encounter Additional Health Concerns Assessment Noted Time PHQ-9 Depression Total Score: 18 02/14/2013 9:53 AM CD T documented as of this encounter
--- OUTSIDE RECORDS SUMMARY | 2022-08-12 09:28 | XMS_ITS | Encounter Summary ---
:1960 Author Organization [facility] Address [address] [place] [address] Care Team Providers Name Role Phone Unavailable [...]
--- OUTSIDE RECORDS SUMMARY | 2022-08-12 09:28 | XMS_ITS | Encounter Summary ---
:1960 Author Organization [facility] Address [address] [place] [address] Care Team Providers Name Role Phone Unavailable Primary Care Provider Unavailable Encounter Details Date Type Department Care Team Description 10/18/2013 Hospital Encounter HX [facility] Cintia Aguirre M.D. [address] [place] [phone] (Wo rk) Social History Tobacco Use Types Packs/Day Years Used Date Smoking Tobacco: Never Assessed Sex Assigned at Date Recorded Not on file documented as of this encounter Last Filed Vital Signs Vital Sign Reading Time Taken Comments Blood Pressure 159/98 10/18/2013 10:56 AM CONSTRUCTION HELPER Pulse 54 10/18/2013 10:41 AM CONSTRUCTION HELPER Temperature - - Respiratory Rate 16 10/18/2013 10:41 AM CONSTRUCTION HELPER Oxygen Saturation - - Inhaled Oxygen Concentration - - Weight 155 kg (342 lb 9.5 oz) 10/18/2013 10:41 AM CONSTRUCTION HELPER Height - - Body Mass Index 46.4 09/30/2013 11:38 AM CONSTRUCTION HELPER documented in this encounter Progress Notes Cintia Cobb M.D. - 10/18/2013 10:37 AM CST [id number] CHIEF COMPLAINT/REASON FOR VISIT Followup blood pressure [...] Patient/parent/caregiver expressed understanding of the content. Cintia oSng M.D./giovanny Electronically Signed By: CINTIA KILGORE MD On: 10/26/2013 04:23 PM Source: [facility] MHSDOLBEYNONRADSYS Document Id: [id number] TRUCTION HELPER documented in this encounter Miscellaneous Notes Osbaldo - Cintia Cobb M.D. - 10/18/2013 10:50 PM CONSTRUCTION HELPER Quality Measures Quality Measures Entered On: 10/18/2013 22:51 CONSTRUCTION HELPER Performed On: 10/18/2013 22:50 CONSTRUCTION HELPER by CINTIA KILGORE MD Diabetes Date of Last Foot Exam : 10/18/2013 CONSTRUCTION HELPER CINTIA KILGORE MD - 10/18/2013 22:50 CONSTRUCTION HELPER Source: [facility] POWERCHART Document Id: [id number] CONSTRUCTION HELPER!3 TRUCTION HELPER Lulycellaneous - Cintia Cobb M.D. - 10/18/2013 11:29 AM CONSTRUCTION HELPER Ambulatory Patient Summary [phone] [place] [address] Visit Information Name: LAZ LUNA [facility] Number: [id number] Current Date: 10/18/2013 11:29:55 Physicians [...] Oral, once a day New Routed to [address] [address] docusate-senna (Dok Plus) 2 Tablet(s), [...] [facility] POWERCHART Document Id: [id number] TRUCTION HELPER Miscellaneous - Cintia Cobb M.D. - 10/18/2013 11:29 AM CONSTRUCTION HELPER Ambulatory Depart Summary [address] [address] Visit Information Name: LAZ LUNA [facility] Number: [id number] Visit Date: 10/18/2013 11:29:49 Attending [...] Oral, once a day New Routed to [address] [address] docusate-senna (Dok Plus) 2 Tablet(s), Oral, once [...] in case of emergency. Additional Information: Source: [facility] POWERCHART Document Id: [id number] Anne Marie Hensley L.P.N. - 10/18/2013 11:00 AM CST Quality Measures Quality Measures Entered On: 10/18/2013 11:00 CONSTRUCTION HELPER Performed On: 10/18/2013 11:00 CONSTRUCTION HELPER by ANNE MARIE TUTTLE LPN, RT Diabetes Date of Last Eye Exam : 09/07/2013 CONSTRUCTION HELPER ANNE MARIE TUTTLE LPN, RT - 10/18/2013 11:00 CONSTRUCTION HELPER Source: [employer] Document Id: [id number] CONSTRUCTION HELPER!3 TRUCTION HELPER Anne Marie Dasilva L.P.NPili - 10/18/2013 10:56 AM CST Ambulatory Vitals Height Weight Ambulatory Vitals Height Weight Entered On: 10/18/2013 10:56 CONSTRUCTION HELPER Performed On: 10/18/2013 10:56 CONSTRUCTION HELPER by ANNE MARIE TUTTLE LPN, RT Vitals/Ht/Wt Systolic Blood Pressure : 159 mmHg (HI) Diastolic Blood Pressure : 98 mmHg (>HHI) NIBP Mean : 118 mmHg BP Location : Right upper extremity Blood Pressure Cuff Size : Large ANNE MARIE TUTTLE LPN, RT - 10/18/2013 10:56 CONSTRUCTION HELPER Source: [employer] Document Id: [id number] CONSTRUCTION HELPER!7 TRUCTION HELPER Osbaldo - Anne Marie Tuttle L.P.NPili - 10/18/2013 10:52 AM CST Quality Measures Quality Measures Entered On: 10/18/2013 10:53 CONSTRUCTION HELPER Performed On: 10/18/2013 10:52 CONSTRUCTION HELPER by ANNE MARIE TUTTLE LPN, RT Diabetes Date of Last Foot Exam : 10/18/2013 CONSTRUCTION HELPER ANNE MARIE TUTTLE LPN, RT - 10/18/2013 10:52 CONSTRUCTION HELPER Source: [employer] Document Id: [id number] CONSTRUCTION HELPER!3 TRUCTION HELPER Miscellaneous - Anne Marie Tuttle L.P.N. - 10/18/2013 10:41 AM CST Adult Chief Talent Officer Intake/History Adult Chief Talent Officer Intake/History Entered On: 10/18/2013 10:46 CONSTRUCTION HELPER Performed On: 10/18/2013 10:41 CONSTRUCTION HELPER by ANNE MARIE TUTTLE LPN, RT Intake [...] MARIE TUTTLE LPN, RT - 10/18/2013 10:41 CONSTRUCTION HELPER General Info Information Given By : Patient Preferred Communication Mode : Verbal Languages : Ethiopian ANNE MARIE TUTTLE LPN, RT - 10/18/2013 10:41 CONSTRUCTION HELPER Subjective Pain Symptoms : No ANNE MARIE TUTTLE LPN, RT - 10/18/2013 10:41 CONSTRUCTION HELPER Dependent Habits Tobacco Use/Currently Using : No Smoking Status : Never smoker ANNE MARIE TUTTLE LPN, RT - 10/18/2013 10:41 CONSTRUCTION HELPER Tobacco Use Grid Last Use : never ANNE MARIE TUTTLE LPN, RT - 10/18/2013 10:41 CONSTRUCTION HELPER Caffeine Use Grid Caffeine Use : Current Type : Coffee, Soft drinks Frequency : Weekly Amount : soda- weekly; coffee- 1x/week ANNE MARIE TUTTLE LPN, RT - 10/18/2013 10:41 CONSTRUCTION HELPER Recreational Drug Use Grid Drug Use : None ANNE MARIE UTTTLE LPN, RT - 10/18/2013 10:41 CONSTRUCTION HELPER Source: [facility] POWERCHART Document Id: [id number] CONSTRUCTION HELPER!38 TRUCTION HELPER documented in this encounter Plan of Treatment Not on filedocumented as of this encounter Visit Diagnoses Not on filedocumented in this encounter Additional Health Concerns Assessment Noted Time PHQ-9 Depression Total Score: 18 02/14/2013 9:53 AM CD T documented as of this encounter
--- OUTSIDE RECORDS SUMMARY | 2022-08-12 09:28 | XMS_ITS | Encounter Summary ---
:1960 Author Organization [facility] Address [address] [place] [address] Care Team Providers Name Role Phone Unavailable Primary Care Provider Unavailable Encounter Details Date Type Department Care Team Description 2013 Hospital Encounter [facility]X [facility] Steve Andrea, Soumya PRN, C.N.P. [address] [place], [place] [phone] (Wo rk) Social History Tobacco Use Types Packs/Day Years Used Date Smoking Tobacco: Never Assessed Sex Assigned at Date Recorded Not on file documented as of this encounter Miscellaneous Notes Miscellaneous - Steve Andrea, WOOLEN SUITING SHRINKER, C.N.P. - 06/23/2013 10:56 AM CDT Normal Results Letter 23 June 2013 ED CARLYLE [address] [facility] [address] [facility] [id number] Dear ED CARLYLE, I am pleased to report that your results from the following diagnostic test(s) are normal. Please follow up with us as we discussed during your visit or sooner if you have any concerns. If you have questions or concerns, please do not hesitate to call our office. Result Name Current Result Normal Range FIT/Fecal Occult Bld-Clio Negative 2013 Negative - Sincerely, STEVE ANDREA [address] [place] [address] Electronic Signature Electronically Signed By: STEVE ANDREA CNP On: 23 June 2013 This document has images extracted. Source: [facility] POWERCHART Document Id: [id number] documented in this encounter Plan of Treatment [...] ordered if clinically indicated. Test Performed by: [place] [address] [employer] Analyst: Benji roper III, M.D. Specimen (Source) Anatomical [...]
--- OUTSIDE RECORDS SUMMARY | 2022-08-12 09:28 | XMS_ITS | Encounter Summary ---
:1960 Author Organization [facility] Address [address] [place] [address] Care Team Providers Name Role Phone Unavailable Primary Care Provider Unavailable Encounter Details Date Type Department Care Team Description 11/18/2013 Hospital Encounter [facility] Cintia lindquist M.D. [address] [place] [phone] (Wo rk) Social History Tobacco Use [...] covered. Pt will talk to pharmacy. Source: [facility] POWERCHART Document Id: [id number] Miscellaneous - Nichelle Hollis - 11/21/2013 4:53 [...] indapamide, Chlorathyazide, hydroclorathyzide, metolazone. Please advise. Source: [employer] Document Id: [id number] Miscellwalter - Tiffany Owens, L.P.N. - 11/18/2013 4:24 PM CDT General Message From: TIFFANY OWENS LPN To: CINTIA KILGORE MD; Sent: 11/18/2013 16:24:01 CDT Subject: General Message lauren Bautista/silvestre repeated 173/93 large cuff, left arm Source: [employer] Document Id: [id number] Miscellaneous - Tiffany Owens, L.P.N. - 11/18/2013 [...] OWENS LPN - 11/18/2013 16:19 CDT Source: [employer] Document Id: [id number] CDT!9 Miscellaneous - Tiffany Owens L.P.N. - 11/18/2013 4:07 PM CDT General Message From: TIFFANY OWENS LPN To: CINTIA KILGORE MD; Sent: 11/18/2013 16:07:19 CDT Subject: General Message Dr. Song, pt.here for 152/82.Left arm ,large cuff .Pulse 48.slight irrg. Will repeat. thank youcolleen Source: [employer] Document Id: [id number] Miscellaneous - Tiffany Owens L.P.N. - 11/18/2013 [...] Fraire LPN - 11/18/2013 16:01 CDT Source: [employer] Document Id: [id number] CDT!9 documented in this encounter Plan of Treatment Not on filedocumented as of this encounter Visit Diagnoses Not on filedocumented in this encounter Additional Health Concerns Assessment Noted Time PHQ-9 Depression Total Score: 18 02/14/2013 9:53 AM CD T documented as of this encounter
--- OUTSIDE RECORDS SUMMARY | 2022-08-12 09:28 | XMS_ITS | Encounter Summary ---
:1960 Author Organization [facility] Address [address] [place] [address] Care Team Providers Name Role Phone Unavailable Primary Care Provider Unavailable Encounter Details Date Type Department Care Team Description 06/06/2013 Hospital Encounter [facility] INTERNM[facility] Aranza Ramirez PPiliAPili-Kelvin [address] [place] [phone] (Wo rk) Social History Tobacco Use Types [...] Chhaya Ramirez - 06/06/2013 12:00 AM CDT [id number] CHIEF COMPLAINT / REASON FOR VISIT Medical [...] sizes. He states he is working on [employer]. He drinks soda occasionally, but refuses to [...] EMR 06/06/2013. No changes. 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 TOBACCO USE: None. ALCOHOL USE: None. VITAL SIGNS HEIGHT: 181.7 cm. CURRENT BODY WEIGHT: 156.8 kg, body weight is up 2 kg since 05/02/2013. BMI: 47.49 kg/m IMPRESSION / REPORT / PLAN DIAGNOSTICS: Updated hemoglobin A1c was drawn on 06/01/2013 and is at 9%. IMPRESSION: Qmfct-rikr-cstf-old male here for pre-gastric bypass surgery education session. Patient is taking gastric bypass classes in [employer]. These start sometime in June. He estimates [...] to discuss liquid intake and carbonation with [facility]. READINESS TO LEARN: Low interest. TEACHING METHOD USED: Verbal discussion. STAGE OF BEHAVIOR CHANGE: Pre-contemplation. EDUCATION OUTCOME: Verbalizes understanding. Patient selected behavioral objectives: 1) To follow up with [facility] regarding above goals. 2) [...] CHHAYA ALLRED On: 06/07/2013 11:44 AM Source: [facility] MHSDOLBEYNONRADSYS Document Id: [id number] documented in this encounter Miscellaneous Notes Miscellaneous - Chhaya Ramirez - 06/06/2013 9:11 AM CDT Ambulatory Patient Summary [facility] [address] [place] [address] Visit Information Name: LAZ LUNA [facility] Number: [id number] Current Date: 06/06/2013 09:11:25 Physicians Attending Provider: CHHAYA ALLRED Primary Care Provider: STEVE ANDREA QUILL REAMER Your Medications Here is a list of [...] No Appointments found Your Goals/Additional instructions: Source: [facility] POWERCHART Document Id: [id number] Miscellaneous - Chhaya Ramirez - 06/06/2013 9:11 AM CDT Ambulatory Depart Summary [facility] [address] [place] [address] Visit Information Name: LAZ LUNA [facility] Number: [id number] Visit Date: 06/06/2013 09:11:24 Attending Provider: CHHAYA ALLRED Primary Care Provider: STEVE ANDREA QUILL REAMER LAZ LUNA has been given the following [...] your provider for clarification. Additional Information: Source: [facility] POWERCHART Document Id: [id number] Miscellaneous - Chhaya Ramirez - 06/06/2013 9:02 AM CDT Adult Wheel Lacer And Truer Intake/History Adult Wheel Lacer And Truer Intake/History Entered On: 06/06/2013 9:04 CDT Performed [...] Information Given By : Patient Languages : Citizen Of [place] CHHAYA ALLRED - 06/06/2013 9:02 CDT Subjective [...] CHHAYA ALLRED - 06/06/2013 9:02 CDT Source: [employer] Document Id: [id number] CDT!33 documented in this encounter Plan of Treatment Not on filedocumented as of this encounter Visit Diagnoses Not on filedocumented in this encounter Additional Health Concerns Assessment Noted Time PHQ-9 Depression Total Score: 18 02/14/2013 9:53 AM CD T documented as of this encounter
--- OUTSIDE RECORDS SUMMARY | 2022-08-12 09:28 | XMS_ITS | Encounter Summary ---
:1960 Author Organization [facility] Address [address] [place] [address] Care Team Providers Name Role Phone Unavailable Primary Care Provider Unavailable Encounter Details Date Type Department Care Team Description 06/01/2013 Hospital Encounter HX [facility] Rosangela Vieira M.D. [address] [facility], [address] [place], [place] [address] (Wo rk) Social History [...] Vieira M.D. - 06/01/2013 8:44 AM CDT [id number] CHIEF COMPLAINT/REASON FOR VISIT Genital warts. 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 - 06/01/2013 9:25 AM CDT Ambulatory Patient Summary [id number] [facility] [place] [address] Visit Information Name: NOEMÍ LUNA [facility] Number: [id number] Current Date: 06/01/2013 09:25:12 Physicians Attending Provider: MARILUZ VIEIRA MD Primary Care Provider: STEVE ANDREA AIR VALVE REPAIRER Your Medications Here is a list of [...] day to help prevent tinea pedis. Source: [facility] POWERCHART Document Id: [id number] Miscellaneous - Mariluz Vieira M.D. - 06/01/2013 9:25 AM CDT Ambulatory Depart Summary [phone] [place] [address] Visit Information Name: NOEMÍ LUNA [facility] Number: [id number] Visit Date: 06/01/2013 09:25:11 Attending Provider: MARILUZ VIEIRA MD Primary Care Provider: STEVE ANDREA AIR VALVE REPAIRER NOEMÍ LUNA has been given the following [...] your provider for clarification. Additional Information: Source: [facility] POWERCHART Document Id: [id number] Miscellaneous - Ynes Dia L.P.N. - 06/01/2013 8:53 AM CDT Adult End Trimmer Intake/History Adult End Trimmer Intake/History Entered On: 06/01/2013 8:54 CDT Performed [...] Information Given By : Patient Languages : Guatemalan YNES DIA - 06/01/2013 8:53 CDT Subjective [...] YNES DIA - 06/01/2013 8:53 CDT Source: [facility] POWERCHART Document Id: [id number] CDT!34 documented in this encounter Plan of Treatment Not on filedocumented as of this encounter Visit Diagnoses Not on filedocumented in this encounter Additional Health Concerns Assessment Noted Time PHQ-9 Depression Total Score: 18 02/14/2013 9:53 AM CD T documented as of this encounter
--- OUTSIDE RECORDS SUMMARY | 2022-08-12 09:28 | XMS_ITS | Encounter Summary ---
:1960 Author Organization [facility] Address [address] [place] [address] Care Team Providers Name Role Phone Unavailable [...]
--- OUTSIDE RECORDS SUMMARY | 2022-08-12 09:28 | XMS_ITS | Encounter Summary ---
:1960 Author Organization [facility] Address [address] [place] [address] Care Team Providers Name Role Phone Unavailable Primary Care Provider Unavailable Encounter Details Date Type Department Care Team Description 07/26/2013 Hospital Encounter HX [facility] Mehreen Perez, M.S.N., R.N., A.C.N.S.-B.C. [address] [place] [phone] (Wo rk) Social History Tobacco Use [...]
--- OUTSIDE RECORDS SUMMARY | 2022-08-12 09:28 | XMS_ITS | Encounter Summary ---
:1960 Author Organization [facility] Address [address] [place] [address] Care Team Providers Name Role Phone Unavailable Primary Care Provider Unavailable Encounter Details Date Type Department Care Team Description 07/12/2013 Hospital Encounter [facility]X [facility] Mehreen Perez, M.S.N., R.N., A.C.N.S.-B.C. [address] [phone] (Wo rk) Social History Tobacco Use [...]
--- OUTSIDE RECORDS SUMMARY | 2022-08-12 09:28 | XMS_ITS | Encounter Summary ---
:1960 Author Organization [facility] Address [address] [place] [address] Care Team Providers Name Role Phone Unavailable Primary Care Provider Unavailable Encounter Details Date Type Department Care Team Description 04/04/[address] [facility] INTERNMED Aranza Ramirez, P.APili-C. [address] [place] [phone] (Wo rk) Social History Tobacco Use Types [...] Chhaya Ramirez - 04/04/2013 12:00 AM CDT [id number] CHIEF COMPLAINT / REASON FOR VISIT Referral completed by Steve Moy CNP for pre gastric bypass surgery. HISTORY OF PRESENT ILLNESS DIET RECALL: Patient is following a general eating pattern. Breakfast today was a big breakfast [employer]. It consisted of eggs, sausage, hash browns [...] own decision. Did recommend thathe contact his nurse educator at [facility] prior to making self-adjustments. He refuses to contact them stating that they do not return his phone calls. Patient also plans to increase his Victoza himself. Did again recommend that he contact [facility] his nurse educator prior to doing that as there [...] EMR. 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 TOBACCO USE: None. ALCOHOL USE: None. [...] currently pursuing using the Learn Program in [facility]. First session is not u ntil the end of April. He thinks it will be group sessions but he is not sure of this. He did see [facility] perch machine inspector prior to this appointment and at that [...] Spent today with patient 60 minutes. Chhaya Allrde R.D., L.D./thai Electronically Signed By: CHHAYA ALLRED On: 04/06/2013 04:45 PM Source: [facility] MHSDOLBEYNONRADSYS Document Id: [id number] documented in this encounter Miscellaneous Notes Miscellaneous [...] in pizza, returned phone call today to [employer] #'s at 10:30 a.m. No answer on either line, unable to leave message. Will try to return call again at later time. Source: [facility] POWERCHART Document Id: [id number] Miscellaneous - Chhaya Ramirez - 04/04/2013 3:26 PM CDT Ambulatory Patient Summary [facility] [address] [place] [address] Visit Information Name: LAZ LUNA [facility] Number: [id number] Current Date: 04/04/2013 15:26:21 Physicians Attending Provider: CHHAYA ALLRED Primary Care Provider: STEVE MOY LEGAL INTERN Your Medications Here is a list of [...] No Appointments found Your Goals/Additional instructions: Source: [facility] POWERCHART Document Id: [id number] Miscellaneous - Chhaya Ramirez - 04/04/2013 3:26 PM CDT Ambulatory Depart Summary [address] [address] Visit Information Name: CARLYLE LAZ [facility] Number: [id number] Visit Date: 04/04/2013 15:26:20 Attending Provider: CHHAYA ALLRED Primary Care Provider: STEVE MOY LEGAL INTERN LAZ LUNA has been given the following [...] your provider for clarification. Additional Information: Source: [facility] POWERCHART Document Id: [id number] Miscellaneous - Chhaya Ramirez - 04/04/2013 3:26 PM CDT Adult Medical Dermatologist Intake/History Adult Medical Dermatologist Intake/History Entered On: 04/04/2013 15:42 CDT Performed [...] Information Given By : Patient Languages : Turkish CHHAYA ALLRED - 04/04/2013 15:26 CDT Subjective [...] CHHAYA ALLRED - 04/04/2013 15:26 CDT Source: [facility] [employer] Document Id: [id number] CDT!37 documented in this encounter Plan of Treatment Not on filedocumented as of this encounter Visit Diagnoses Not on filedocumented in this encounter Additional Health Concerns Assessment Noted Time PHQ-9 Depression Total Score: 18 02/14/2013 9:53 AM CD T documented as of this encounter
--- OUTSIDE RECORDS SUMMARY | 2022-08-12 09:28 | XMS_ITS | Encounter Summary ---
:1960 Author Organization [facility] Address [address] [place] [address] Care Team Providers Name Role Phone Unavailable [...]
--- OUTSIDE RECORDS SUMMARY | 2022-08-12 09:28 | XMS_ITS | Encounter Summary ---
:1960 Author Organization [facility] Address [address] [place] [address] Care Team Providers Name Role Phone Unavailable Primary Care Provider Unavailable Encounter Details Date Type Department Care Team Description 11/04/2013 Hospital Encounter HX [facility] [place] Cintia Aguirre M.D. [address] [place] [phone] (Wo rk) Social History Tobacco Use Types Packs/Day Years Used Date Smoking Tobacco: Never Assessed Sex Assigned at Date Recorded Not on file documented as of this encounter Last Filed Vital Signs Vital Sign Reading Time Taken Comments Blood Pressure 131/68 11/04/2013 1:48 PM REEXAMINER Pulse 62 11/04/2013 11:23 AM REEXAMINER Temperature - - Respiratory Rate 16 11/04/2013 11:23 AM REEXAMINER Oxygen Saturation - - Inhaled Oxygen Concentration - - Weight 152 kg (335 lb 1.6 oz) 11/04/2013 11:23 AM REEXAMINER Height - - Body Mass Index 46.04 10/26/2013 10:12 AM REEXAMINER documented in this encounter Progress Notes Cintia Cobb M.D. - 11/04/2013 11:06 AM CST [id number] CHIEF COMPLAINT/REASON FOR VISIT Followup blood pressure. [...] blood sugars, his morning readings have been csqr120 to 170 since we increased his Lantus. [...] KILGORE MD On: 11/15/2013 10:17 PM Source: [facility] MHSDOLBEYNONRADSYS Document Id: [id number] documented in this encounter Miscellaneous Notes Miscellaneous - Harvey Packer L.P.N. - 11/04/2013 1:48 PM CST Quality Measures Quality Measures Entered On: 11/04/2013 13:48 REEXAMINER Performed On: 11/04/2013 13:48 REEXAMINER by HARVEY PACKER LPN BP/Tobacco/Misc Systolic Blood Pressure : 131 mmHg Diastolic Blood Pressure : 68 mmHg HARVEY PACKER LPN - 11/04/2013 13:48 REEXAMINER Source: [facility] POWERCHART Document Id: [id number] REEXAMINER!4 AMINER Miscellaneous - Cintia Cobb M.D. - 11/04/2013 11:49 AM REEXAMINER Ambulatory Patient Summary [address] [id number] Visit Information Name: LAZ LUNA [facility] Number: [id number] Current Date: 11/04/2013 11:49:57 Physicians [...] Source: [facility] POWERCHART Document Id: [id number] AMINER Miscellaneous - Cintia Cobb M.D. - 11/04/2013 11:49 AM REEXAMINER Ambulatory Discharge Medication List [address] [phone] Visit Information Name: LUNALAZ [facility] Number: [id number] Visit Date: 11/04/2013 11:49:53 Attending [...] in case of emergency. Additional Information: Source: [facility] POWERCHART Document Id: [id number] AMINER Osbaldo - Anne Marie Tuttle LPiliP.N. - 11/04/2013 11:27 AM CST Ambulatory Vitals Height Weight Ambulatory Vitals Height Weight Entered On: 11/04/2013 11:28 REEXAMINER Performed On: 11/04/2013 11:27 REEXAMINER by ANNE MARIE TUTTLE LPN, RT Vitals/Ht/Wt Systolic Blood Pressure : 131 mmHg Diastolic Blood Pressure : 68 mmHg NIBP Mean : 89 mmHg BP Location : Right upper extremity Blood Pressure Cuff Size : Large ANNE MARIE TUTTLE LPN, - 11/04/2013 11:27 REEXAMINER Source: [facility] [employer]tvCHART Document Id: [id number] REEXAMINER!7 AMINER Anne Marie Dasilva L.P.N. - 11/04/2013 11:23 AM CST Adult Scientific Artist Intake/History Adult Scientific Artist Intake/History Entered On: 11/04/2013 11:26 REEXAMINER Performed On: 11/04/2013 11:23 REEXAMINER by ANNE MARIE TUTTLE LPN, RT Intake [...] MARIE TUTTLE LPN, RT - 11/04/2013 11:23 REEXAMINER General Info Information Given By : Patient Preferred Communication Mode : Verbal Languages : Persian ANNE MARIE TUTTLE LPN, RT - 11/04/2013 11:23 REEXAMINER Subjective Pain Symptoms : No ANNE MARIE TUTTLE LPN, RT - 11/04/2013 11:23 REEXAMINER Dependent Habits Tobacco Use/Currently Using : No Smoking Status : Never smoker ANNE MARIE TUTTLE LPN, RT - 11/04/2013 11:23 REEXAMINER Tobacco Use Grid Last Use : never ANNE MARIE TUTTLE LPN, RT - 11/04/2013 11:23 REEXAMINER Caffeine Use Grid Caffeine Use : Current Type : Coffee, Soft drinks Frequency : Weekly Amount : soda- weekly; coffee- 1x/week ANNE MARIE TUTTLE LPN, RT - 11/04/2013 11:23 REEXAMINER Recreational Drug Use Grid Drug Use : None ANNE MARIE TUTTLE LPN, RT - 11/04/2013 11:23 REEXAMINER Source: [facility] POWERCHART Document Id: [id number] REEXAMINER!37 AMINER documented in this encounter Plan of Treatment Not on filedocumented as of this encounter Visit Diagnoses Not on filedocumented in this encounter Additional Health Concerns Assessment Noted Time PHQ-9 Depression Total Score: 18 02/14/2013 9:53 AM CD T documented as of this encounter
--- OUTSIDE RECORDS SUMMARY | 2022-08-12 09:28 | XMS_ITS | Encounter Summary ---
:1960 Author Organization [facility] Address [address] [place] [address] Care Team Providers Name Role Phone Unavailable [...]
--- OUTSIDE RECORDS SUMMARY | 2022-08-12 09:28 | XMS_ITS | Encounter Summary ---
:1960 Author Organization [facility] Address [address] [place] [address] Care Team Providers Name Role Phone Unavailable Primary Care Provider Unavailable Encounter Details Date Type Department Care Team Description 06/01/2013 Hospital Encounter HX [facility] Bhumi Andrea, HAKEEM, C.N.P. [address] [place] [phone] (Wo rk) Social History Tobacco Use Types [...] APRN, C.N.P. - 06/01/2013 9:20 AM CDT [id number] CHIEF COMPLAINT/REASON FOR VISIT 1. Diabetes type 2, uncontrolled. 2. Hypertension. 3. Hyperlipidemia. 4. Urinary tract infection. 5. Benign prostatic hypertrophy. 6. Urge incontinence. HISTORY OF PRESENT ILLNESS Ed is here for recheck. 1. He has history of diabetes type 2, uncontrolled. He has been working with dietitian in [place]. He has discontinued glimepiride and is now on Victoza, along with 60 units of Lantus. He states he has missed a few doses of Lantus. 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 He states he has been working on weight loss and has lost a few pounds. He is hoping to undergo bariatric surgery. He has some classes he needs to attend in [place] andthen will be scheduling followup at [place] again. He is due for A1c today. [...] the dietitian and will be following with [place] in preparation for bariatric surgery. 2. Hypertension [...] ANDREA CNP On: 06/01/2013 03:13 PM Source: [facility] MHSDOLBEYNONRADSYS Document Id: [id number] documented in this encounter Miscellaneous Notes Miscellaneous - Hank Villafana L.P.NPili - 06/24/2013 10:21 AM CDT Colorectal cancer screening reminder Document Contains Addenda Addendum by MARY DIAZ LPN on 24 May 2014 15:50:32 CDT No longer a patient at [facility]. Addendum by MARCIAL CHAVEZ LPN on 24 [...] Patient ( ) ( ) Call for Mattress Inspector ( ) Follow up on Results ( ) Other: PROVIDER: ( ) Call Physician ( ) Call Pharmacist ( ) Call Lab ( ) Other: Special Instructions: Comments: [facility] Document Id: [id number] Miscellaneous - Steve Andrea APRN, C.N.P. - 06/01/2013 10:36 AM CDT Schedule Follow-Up Visit 01 June 2013 ED CARLYLE [address] [place] [address] [place] [phone] Dear NOEMÍ LUNA, Thank you for choosing [facility] for your health care needs. [...] - 6.0 Sincerely, STEVE ANDREA [address] [facility] [place] [address] Electronic Signature Electronically Signed By: STEVE ANDREA CNP On: 01 June 2013 This document has images extracted. Source: [facility] Document Id: [id number] Miscellaneous - tSeve Andrea APRN, C.N.P. - 06/01/2013 10:03 AM CDT Ambulatory Patient Summary [address] [facility] [place] [address] Visit Information Name: NOEMÍ LUNA [facility] Number: [id number] Current Date: [...] Chhaya Campos RD Your Goals/Additional instructions: Source: [facility] POWERCHART Document Id: [id number] Miscellaneous - Steve Andrea APRN, C.N.P. - 06/01/2013 10:03 AM CDT Ambulatory Depart Summary [address] [phone] Visit Information Name: CARLYLE NOEMÍ [facility] Number: [id number] Visit Date: 06/01/2013 10:03:45 Attending Provider: STEVE ANDREA CNP Primary Care Provider: STEVE ANDREA FARM MACHINERY ENGINE MECHANIC NOEMÍ LUNA has been given the following [...] your provider for clarification. Additional Information: Source: [facility] POWERCHART Document Id: [id number] Miscellaneous - Marcial Chavez, LPiliPPiliN. - 06/01/2013 9:29 AM CDT Adult Commodity Management Specialist Intake/History Adult Commodity Management Specialist Intake/History Entered On: 06/01/2013 9:31 CDT Performed [...] Information Given By : Patient Languages : Namibian MARCIAL CHAVEZ - 06/01/2013 9:29 CDT Subjective [...] MARCIAL CHAVEZ - 06/01/2013 9:29 CDT Source: [employer] Document Id: [id number] CDT!29 Miscellaneous - Steve Andrea APRN, C.N.P. - 05/28/2013 10:10 AM CDT Quality Measures Quality Measures Entered On: 06/01/2013 10:10 CDT Performed On: 05/28/2013 10:10 CDT by STEVE ANDREA CNP Labs Outside Lab Creatinine (Serum) : 1.07 mg/dL Outside Lab Report Location : Scanned into EMR STEVE ANDREA CNP - 06/01/2013 10:10 CDT Source: [employer] Document Id: [id number] CDT!4 documented in this encounter Plan of [...] See POWERCHART scanned/paper report. Test performed at [facility]. Specimen (Source) Anatomical Collection Method Collection [...]
--- OUTSIDE RECORDS SUMMARY | 2022-08-12 09:28 | XMS_ITS | Encounter Summary ---
:1960 Author Organization [facility] Address [address] [place] [address] Care Team Providers Name Role Phone Unavailable Primary Care Provider Unavailable Encounter Details Date Type Department Care Team Description 08/30/2013 Hospital Encounter HX [facility] [place] Cintia Aguirre M.D. [address] [place] [phone] (Wo rk) Social History Tobacco Use Types Packs/Day Years Used Date Smoking Tobacco: Never Assessed Sex Assigned at Date Recorded Not on file documented as of this encounter Last Filed Vital Signs Vital Sign Reading Time Taken Comments Blood Pressure 160/100 08/30/2013 11:22 AM STRAIGHT PIN MAKING MACHINE OPERATOR Pulse 56 08/30/2013 11:15 AM STRAIGHT PIN MAKING MACHINE OPERATOR Temperature - - Respiratory Rate - - Oxygen Saturation - - Inhaled Oxygen Concentration - - Weight 149 kg (329 lb 5.9 oz) 08/30/2013 11:15 AM STRAIGHT PIN MAKING MACHINE OPERATOR Height 180 cm (5' 10.87) 08/30/2013 11:15 AM STRAIGHT PIN MAKING MACHINE OPERATOR Body Mass Index 46.11 08/30/2013 11:15 AM STRAIGHT PIN MAKING MACHINE OPERATOR documented in this encounter Progress Notes Cintia Cobb M.D. - 08/30/2013 11:02 AM CST [id number] CHIEF COMPLAINT/REASON FOR VISIT Followup blood pressure. [...] KILGORE MD On: 09/08/2013 02:46 PM Source: [facility] MHSDOLBEYNONRADSYS Document Id: [id number] IGHT PIN MAKING MACHINE OPERATOR documented in this encounter Miscellaneous Notes Miscellaneous - Cintia Cobb M.D. - 08/30/2013 11:53 AM STRAIGHT PIN MAKING MACHINE OPERATOR Ambulatory Patient Summary [facility] [address] [facility] [place] [address] Visit Information Name: LAZ LUNA [facility] Number: [id number] Current Date: 08/30/2013 11:53:32 [...] appointment detail needed. Your Goals/Additional instructions: Source: [facility] POWERCHART Document Id: [id number] IGHT PIN MAKING MACHINE OPERATOR Miscellaneous - Cintia Cobb M.D. - 08/30/2013 11:53 AM STRAIGHT PIN MAKING MACHINE OPERATOR Ambulatory Depart Summary [address] [address] Visit Information Name: LAZ LUNA [facility] Number: [id number] Visit Date: 08/30/2013 11:53:28 [...] times a day This is a CHANGE [address] [address] metFORMIN (metformin 1000 mg oral [...] in case of emergency. Additional Information: Source: [facility] POWERCHART Document Id: [id number] IGHT PIN MAKING MACHINE OPERATOR Miscellaneous - Anne Marie Tuttle L.P.N. - 08/30/2013 11:22 AM CST Ambulatory Vitals Height Weight Ambulatory Vitals Height Weight Entered On: 08/30/2013 11:22 STRAIGHT PIN MAKING MACHINE OPERATOR Performed On: 08/30/2013 11:22 STRAIGHT PIN MAKING MACHINE OPERATOR by ANNE MARIE TUTTLE LPN, RT Vitals/Ht/Wt Systolic Blood Pressure : 160 mmHg (HI) Diastolic Blood Pressure : 100 mmHg (>HHI) NIBP Mean : 120 mmHg BP Location : Left upper extremity Blood Pressure Cuff Size : Large ANNE MARIE TUTTLE LPN, RT - 08/30/2013 11:22 STRAIGHT PIN MAKING MACHINE OPERATOR Source: [employer] Document Id: [id number] STRAIGHT PIN MAKING MACHINE OPERATOR!7 IGHT PIN MAKING MACHINE OPERATOR Miscellaneous - Anne Marie Tuttle L.P.N. - 08/30/2013 11:15 AM CST Adult Form Tamper Intake/History Adult Form Tamper Intake/History Entered On: 08/30/2013 11:18 STRAIGHT PIN MAKING MACHINE OPERATOR Performed On: 08/30/2013 11:15 STRAIGHT PIN MAKING MACHINE OPERATOR by ANNE MARIE TUTTLE LPN, RT [...] ANNE MARIE TUTTLE LPN, - 08/30/2013 11:15 STRAIGHT PIN MAKING MACHINE OPERATOR General Info Information Given By : Patient Preferred Communication Mode : Verbal Languages : Turkish ANNE MARIE TUTTLE LPN, RT - 08/30/2013 11:15 STRAIGHT PIN MAKING MACHINE OPERATOR Subjective Pain Symptoms : No TONYA ANNE MARIE Lindsay LPN, RT - 08/30/2013 11:15 STRAIGHT PIN MAKING MACHINE OPERATOR Dependent Habits Tobacco Use/Currently Using : No Smoking Status : Never smoker ANNE MARIE TUTTLE LPN, RT - 08/30/2013 11:15 STRAIGHT PIN MAKING MACHINE OPERATOR Tobacco Use Grid Last Use : never ANNE MARIE TUTTLE LPN, RT - 08/30/2013 11:15 STRAIGHT PIN MAKING MACHINE OPERATOR Caffeine Use Grid Caffeine Use : Current Type : Coffee, Soft drinks Frequency : Weekly Amount : soda- weekly; coffee- 1x/week ANNE MARIE TUTTLE LPN, RT - 08/30/2013 11:15 STRAIGHT PIN MAKING MACHINE OPERATOR Recreational Drug Use Grid Drug Use : None NANE MARIE TUTTLE LPN, RT - 08/30/2013 11:15 STRAIGHT PIN MAKING MACHINE OPERATOR Source: [employer] Document Id: [id number] STRAIGHT PIN MAKING MACHINE OPERATOR!37 IGHT PIN MAKING MACHINE OPERATOR documented in this encounter Plan of Treatment Not on filedocumented as of this encounter Visit Diagnoses Not on filedocumented in this encounter Additional Health Concerns Assessment Noted Time PHQ-9 Depression Total Score: 18 02/14/2013 9:53 AM CD T documented as of this encounter
--- OUTSIDE RECORDS SUMMARY | 2022-08-12 09:28 | XMS_ITS | Encounter Summary ---
:1960 Author Organization [facility] Address [address] [place] [address] Care Team Providers Name Role Phone Unavailable Primary Care Provider Unavailable Encounter Details Date Type Department Care Team Description 10/18/2013 Hospital Encounter HX [facility] Cintia Aguirre M.D. [address] [place] [phone] (Wo rk) Social History Tobacco Use Types Packs/Day Years Used Date Smoking Tobacco: Never Assessed Sex Assigned at Date Recorded Not on file documented as of this encounter Miscellaneous Notes Miscellaneous - Cintia Cobb M.D. - 10/18/2013 3:37 PM COOK APPRENTICE PASTRY US results Document Contains Addenda Addendum by JOSIE CASTANEDA LPN, RT on 20 October 2013 15:48:07 COOK APPRENTICE PASTRY Message left with to have patient call clinic. DL Addendum by JOSIE CASTANEDA LPN, RT on 19 October 2013 12:04:01 COOK APPRENTICE PASTRY no answer/no machine. DL From: CINTIA KILGORE MD To: JOSIE CASTANEDA LPN RT; Sent: 10/18/2013 15:37:21 COOK APPRENTICE PASTRY Subject: US results Please let Ed know that his kidney ultrasound looked okay. They did not see any narrowing of his arteries. We will follow up on his BP as discussed. Thanks, Cintia Source: [facility] POWERCHART Document Id: [id number] Electronically signed by Conversion, [facility] Developer Advocate [id number] at 02/03/2017 3:31 PM CDT documented in this encounter Plan of Treatment Not on filedocumented as of this encounter Visit Diagnoses Not on filedocumented in this encounter Additional Health Concerns Assessment Noted Time PHQ-9 Depression Total Score: 18 02/14/2013 9:53 AM CD T documented as of this encounter
--- OUTSIDE RECORDS SUMMARY | 2022-08-12 09:28 | XMS_ITS | Encounter Summary ---
:1960 Author Organization [facility] Address [address] [place] [address] Care Team Providers Name Role Phone Unavailable Primary Care Provider Unavailable Encounter Details Date Type Department Care Team Description 05/02/2013 Hospital Encounter HX [facility] INTERNMED Aranza Ramirez PPiliAPili-Kelvin [address] [place] [phone] (Wo rk) Social History Tobacco Use Types [...] Chhaya Ramirez - 05/02/2013 12:00 AM CDT [id number] CHIEF COMPLAINT / REASON FOR VISIT Medical [...] program. He states he sees someone in [place] tomorrow. He refuses to chew food to [...] dated 05/02/2013. No changes. 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 TOBACCO USE: None. ALCOHOL USE: None. VITAL [...] CHHAYA ALLRED On: 05/05/2013 10:38 AM Source: [facility] MHSDOLBEYNONRADSYS Document Id: [id number] documented in this encounter Miscellaneous Notes Miscellaneous - Chhaya Ramirez - 05/02/2013 8:38 AM CDT Ambulatory Patient Summary [facility] [address] [place] [phone] Visit Information Name: LAZ LUNA [facility] Number: [id number] Current Date: 05/02/2013 08:38:46 Physicians Attending Provider: CHHAYA ALLRED Primary Care Provider: STEVE ANDREA KINDER TEACHER Your Medications Here is a list of [...] No Appointments found Your Goals/Additional instructions: [facility] POWERCHART Document Id: [id number] Miscellaneous - Chhaya Ramirez - 05/02/2013 8:38 AM CDT Ambulatory Depart Summary [facility] [address] [place] [address] Visit Information Name: LAZ LUNA [facility] Number: [id number] Visit Date: 05/02/2013 08:38:45 Attending Provider: CHHAYA ALLRED Primary Care Provider: STEVE ANDREA KINDER TEACHER LAZ LUNA has been given the following [...] provider for clarification. Additional Information: Source: [facility] POWERCHART Document Id: [id number] Miscellaneous - Chhaya Ramirez - 05/02/2013 8:34 AM CDT Adult Senior Litigation Paralegal Intake/History Adult Senior Litigation Paralegal Intake/History Entered On: 05/02/2013 8:36 CDT Performed [...] Information Given By : Patient Languages : Lithuanian CHALINO CHHAYA Fernandez 05/02/2013 8:34 CDT Subjective [...] None CHHAYA ALLRED 05/02/2013 8:34 CDT Source: [employer] Document Id: [id number] CDT!34 documented in this encounter Plan of Treatment Not on filedocumented as of this encounter Visit Diagnoses Not on filedocumented in this encounter Additional Health Concerns Assessment Noted Time PHQ-9 Depression Total Score: 18 02/14/2013 9:53 AM CD T documented as of this encounter
--- OUTSIDE RECORDS SUMMARY | 2022-08-12 09:28 | XMS_ITS | Encounter Summary ---
:1960 Author Organization [facility] Address [address] [place] [address] Care Team Providers Name Role Phone Unavailable Primary Care Provider Unavailable Encounter Details Date Type Department Care Team Description 09/13/2013 Hospital Encounter HX [facility] Song FlCintia domingo M.D. [address] [place] [phone] (Wo rk) Social History Tobacco Use Types Packs/Day Years Used Date Smoking Tobacco: Never Assessed Sex Assigned at Date Recorded Not on file documented as of this encounter Last Filed Vital Signs Vital Sign Reading Time Taken Comments Blood Pressure 142/98 09/13/2013 1:47 PM GAG WRITER Pulse - - Temperature - - Respiratory Rate - - Oxygen Saturation - - Inhaled Oxygen Concentration - - Weight - - Height - - Body Mass Index - - documented in this encounter Miscellaneous Notes Miscellaneous - Harvey Packer LPiliP.N. - 09/13/2013 2:10 PM CST General Message From: HARVEY PACKER LPN To: CINTIA KILGORE MD; Sent: 09/13/2013 14:10:09 GAG WRITER Subject: General Message S. Patient came in [...] call him with any questions or concerns. [phone] Verbal permission given to this nurse, you make speak with his . Magali (he calls her Fabiola). Source: [facility] [employer] Document Id: [id number] Miscellaneous - Harvey Packer L.P.N. - 09/13/2013 1:47 PM CST Ambulatory Vitals Height Weight Ambulatory Vitals Height Weight Entered On: 09/13/2013 13:47 GAG WRITER Performed On: 09/13/2013 13:47 GAG WRITER by HARVEY PACKER LPN Vitals/Ht/Wt Systolic Blood Pressure : 142 mmHg (HI) Diastolic Blood Pressure : 102 mmHg (>HHI) NIBP Mean : 115 mmHg HARVEY PACKER LPN - 09/13/2013 13:47 GAG WRITER [facility] Document Id: [id number] GAG WRITER!5 WRITER Miscellaneous - Harvey Packer L.P.N. - 09/13/2013 1:47 PM CST Ambulatory Vitals Height Weight Ambulatory Vitals Height Weight Entered On: 09/13/2013 13:47 GAG WRITER Performed On: 09/13/2013 13:47 GAG WRITER by HARVEY PACKER LPN Vitals/Ht/Wt Systolic Blood Pressure : 144 mmHg (HI) Diastolic Blood Pressure : 98 mmHg (>HHI) NIBP Mean : 113 mmHg HARVEY PACKER LPN - 09/13/2013 13:47 GAG WRITER Source: [facility] [employer] Document Id: [id number] GAG WRITER!5 WRITER documented in this encounter Plan of Treatment Not on filedocumented as of this encounter Visit Diagnoses Not on filedocumented in this encounter Additional Health Concerns Assessment Noted Time PHQ-9 Depression Total Score: 18 02/14/2013 9:53 AM CD T documented as of this encounter
--- OUTSIDE RECORDS SUMMARY | 2022-08-12 09:28 | XMS_ITS | Encounter Summary ---
:1960 Author Organization [facility] Address [address] [place] [address] Care Team Providers Name Role Phone Unavailable Primary Care Provider Unavailable Encounter Details Date Type Department Care Team Description 07/04/2013 Hospital Encounter HX [facility]OC INTERNMED Aranza Ramirez PPiliAPili-Kelvin [address] [place] [phone] (Wo rk) Social History Tobacco Use Types [...] Chhaya Ramirez - 07/04/2013 12:00 AM CDT [id number] CHIEF COMPLAINT/REASON FOR VISIT Medical Nutrition Therapy [...] OF GOALS: from 06/06/13: 1. Follow with [facility], regarding above goals. 2. [...] of Lantus insulin today. 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 TOBACCO USE: None. ALCOHOL USE: None. [...] CHHAYA ALLRED On: 07/06/2013 04:49 PM Source: [facility] MHSDOLBEYNONRADSYS Document Id: [id number] documented in this encounter Miscellaneous Notes Miscellaneous - Chhaya Ramirez - 07/04/2013 3:18 PM CDT Ambulatory Patient Summary [address] [address] Visit Information Name: LAZ LUNA [facility] Number: [id number] Current Date: 07/04/2013 15:18:34 Physicians Attending Provider: CHHAYA ALLRED Primary Care Provider: STEVE MOY SPLUNK CONSULTANT LAZ LUNA has been given the following [...] Time Location Reason Provider 07/11/2013 08:45 [facility] high blood pressure Steve Moy CNP 07/11/2013 09:15 [facility] Lab [facility] Lab 07/11/2013 09:15 [facility] Lab [facility] Lab Attention: Contact your local Clinic if further appointment detail needed. Your Goals/Additional instructions: Source: [facility] POWERCHART Document Id: [id number] Miscellaneous - Chhaya Ramirez - 07/04/2013 3:18 PM CDT Ambulatory Depart Summary [address] [address] Visit Information Name: CARLYLELAZ [facility] Number: [id number] Visit Date: 07/04/2013 15:18:33 Attending Provider: CHHAYA ALLRED Primary Care Provider: STEVE MOY SPLUNK CONSULTANT LAZ LUNA has been given the following [...] for clarification. Additional Information: Source: [facility] POWERCHART Document Id: [id number] Miscellaneous - Chhaya Ramirez - 07/04/2013 3:11 PM CDT Adult Animal Trainer Intake/History Adult Animal Trainer Intake/History Entered On: 07/04/2013 15:14 CDT Performed [...] Information Given By : Patient Languages : Cay[place] Islander CHHAYA ALLRED - 07/04/2013 15:11 CDT Subjective [...] None CHHAYA ALLRED 07/04/2013 15:11 CDT Source: [facility] Document Id: [id number] CDT!29 documented in this encounter Plan of Treatment Not on filedocumented as of this encounter Visit Diagnoses Not on filedocumented in this encounter Additional Health Concerns Assessment Noted Time PHQ-9 Depression Total Score: 18 02/14/2013 9:53 AM CD T documented as of this encounter
--- OUTSIDE RECORDS SUMMARY | 2022-08-12 09:28 | XMS_ITS | Encounter Summary ---
:1960 Author Organization [facility] Address [address] [place] [address] Care Team Providers Name Role Phone Unavailable Primary Care Provider Unavailable Encounter Details Date Type Department Care Team Description 09/13/2013 Hospital Encounter HX [facility] Cintia Cobb M.D. [address] [place] [phone] (Wo rk) Social History Tobacco Use Types Packs/Day Years Used Date Smoking Tobacco: Never Assessed Sex Assigned at Date Recorded Not on file documented as of this encounter Miscellaneous Notes Miscellaneous - Cintia Cobb M.D. - 09/22/2013 12:13 PM REGISTERED MEDICAL TRANSCRIPTIONIST Normal Results Letter 22 September 2013 ED LUNA [address] [facility] [address] [place] [id number] Dear ED CARLYLE, Please review your lab [...] 07/11/2013 8.6 - 10.0 Sincerely, CINTIA KILGORE [facility] [place] [address] Electronic Signature Electronically Signed By: CINTIA KILGORE MD On: 22 September 2013 This document has images extracted. Source: [facility] EmboticsCHART Document Id: [id number] Electronically signed by Conversion, [facility] Post Office Clerk [id number] at 02/03/2017 2:37 PM CDT documented in this encounter Plan of Treatment Not on filedocumented as of this encounter Procedures Procedure Name Priority Date/Time Associated Diagnosis Comme nts BASIC METABOLIC Routine 09/13/2013 1:39 PM Result s for this PANEL, S/P REGISTERED MEDICAL TRANSCRIPTIONIST procedure are i n the results section. documented in this encounter Results (ABNORMAL) BMP (Basic Metabolic Panel) (09/13/2013 1:39 PM REGISTERED MEDICAL TRANSCRIPTIONIST) P athologist Signature Anion Gap 14 10 [...] POWERCHART MMOLL HXeGFR (MDRD) >60 >=60 POWERCHART [id number] eGFR >60 >=60 POWERCHART Black/ [id number] Swiss Specimen (Source) Anatomical Collection Method Collection Time Re ceived Time Location / / Volume Laterality Blood 09/13/2013 1:39 PM REGISTERED MEDICAL TRANSCRIPTIONIST Cintia Copeland M.D. LAB BLOOD ADD-ON Performing Organization Address City/State/ZIP Code Phon e Number POWERCHART documented in this encounter Visit Diagnoses Not on filedocumented in this encounter Additional Health Concerns Assessment Noted Time PHQ-9 Depression Total Score: 18 02/14/2013 9:53 AM CD T documented as of this encounter
--- OUTSIDE RECORDS SUMMARY | 2022-08-12 09:28 | XMS_ITS | Encounter Summary ---
:1960 Author Organization [facility] Address [address] [place] [address] Care Team Providers Name Role Phone Unavailable Primary Care Provider Unavailable Encounter Details Date Type Department Care Team Description 06/28/2013 Hospital Encounter HX [facility] Mehreen Perez, M.S.N., R.N., A.C.N.S.-B.C. [address] [place] [phone] (Wo rk) Social History Tobacco Use [...]
--- OUTSIDE RECORDS SUMMARY | 2022-08-12 09:28 | XMS_ITS | Encounter Summary ---
:1960 Author Organization [facility] Address [address] [place] [address] Care Team Providers Name Role Phone Unavailable Primary Care Provider Unavailable Encounter Details Date Type Department Care Team Description 07/11/2013 Hospital Encounter HX [facility] FB LAB Angélica Jolley M.D. [address] [place], [place] [phone] (Wo rk) Social History Tobacco Use Types Packs/Day Years Used Date Smoking Tobacco: Never Assessed Sex Assigned at Date Recorded Not on file documented as of this encounter Plan of Treatment Not on filedocumented as of this encounter Procedures Procedure Name Priority Date/Time Associated Diagnosis Comme nts HEMOGLOBIN A1C, B Routine 07/11/2013 9:41 AM Resu lts for this TRANSACTION MANAGER procedure are i n the results section. documented in this encounter Results (ABNORMAL) Hemoglobin A1c (07/11/2013 9:41 AM TRANSACTION MANAGER) athologist Signature Hemoglobin A1c, 8.0 (H) 4.0 - 6.0 POWERCHART B Specimen (Source) Anatomical Collection Method Collection Time Re ceived Time Location / / Volume Laterality Blood 07/11/2013 9:41 AM TRANSACTION MANAGER Renetta Jolley M.D. LAB BLOOD ADD-ON Performing Organization Address City/State/ZIP Code Phon e Number POWERCHART documented in this encounter Visit Diagnoses Not on filedocumented in this encounter Additional Health Concerns Assessment Noted Time PHQ-9 Depression Total Score: 18 02/14/2013 9:53 AM CD T documented as of this encounter
--- OUTSIDE RECORDS SUMMARY | 2022-08-12 09:29 | XMS_ITS | Encounter Summary ---
:1960 Author Organization [facility] Address [address] [place] [address] Care Team Providers Name Role Phone Unavailable Primary Care Provider Unavailable Encounter Details Date Type Department Care Team Description 02/11/2013 Hospital Encounter HX [facility] FB FAMILYPRA Rosangela Vieira M.D. [address] [facility], [address] [place], [place] [address] (Wo rk) Social History [...] Vieira M.D. - 02/11/2013 3:39 PM CDT [id number] CHIEF COMPLAINT/REASON FOR VISIT Multiple issues. HISTORY [...] a day, and has been referred to [place] for a recalcitrant A1c of over 10%. [...] he told me he was referred to [place] and so he will follow up with them. He was wondering about weight loss surgery. He also has other health conditions that can make the surgery somewhat higher risk including high blood pressure, high cholesterol and of course the diabetes.He will go for the referral at [place]. Mariluz Vieira M.D./steven Electronically Signed By: MARILUZ VIEIRA MD On: 02/15/2013 11:53 AM Source: [facility] MHSDOLBEYNONRADSYS Document Id: [id number] documented in this encounter Miscellaneous Notes Miscellaneous - Mariluz Vieira M.D. - 02/11/2013 4:40 PM CDT Ambulatory Patient Summary [address] [place] [address] Visit Information Name: LAZ LUNA [facility] Number: [id number] Current Date: 02/11/2013 16:40:07 Physicians Attending Provider: MARILUZ VIEIRA MD Primary Care Provider: STEVE ANDREA [facility] Your Medications Here is a list [...] Date Time Location Reason Provider 03/16/2013 16:00 [facility] Mariluz Vieira MD Your Goals/Additional instructions: Source: [facility] POWERCHART Document Id: [id number] Miscellaneous - Mariluz Vieira M.D. - 02/11/2013 4:40 PM CDT Ambulatory Depart Summary [address] [address] Visit Information Name: LUNALAZ [facility] Number: [id number] Visit Date: 02/11/2013 16:40:06 Attending Provider: MARILUZ VIEIRA MD Primary Care Provider: STEVE ANDREA ANALYST MARK[employer] INTELLIGENCE LAZ LUNA has been given the following [...] how to best lower your sugars Source: [facility] POWERCHART Document Id: [id number] Miscellaneous - Ashley Dia L.P.N. - 02/11/2013 3:54 PM CDT Adult Security Controls Assessor Intake/History Adult Security Controls Assessor Intake/History Entered On: 02/11/2013 16:00 CDT Performed [...] Information Given By : Patient Languages : Latvian ASHLEY DIA - 02/11/2013 15:54 CDT Subjective [...] ASHLEY DIA - 02/11/2013 15:54 CDT [facility] Document Id: [id number] CDT!33 documented in this encounter Plan of Treatment Not on filedocumented as of this encounter Visit Diagnoses Not on filedocumented in this encounter
--- OUTSIDE RECORDS SUMMARY | 2022-08-12 09:29 | XMS_ITS | Encounter Summary ---
:1960 Author Organization [facility] Address [address] [place] [address] Care Team Providers Name Role Phone Unavailable Primary Care Provider Unavailable Encounter Details Date Type Department Care Team Description 03/03/2012 Hospital Encounter HX [facility] FBHB FAMILYPRA Bhumi Andrea, HAKEEM, C.N.P. [address] [place] [phone] (Wo rk) Social History Tobacco Use Types [...] APRN, C.N.P. - 03/03/2012 12:00 AM CDT [id number] CHIEF COMPLAINT/REASON FOR VISIT Mattery eyes, sinus [...] improve. SJM/sks Signed Steve Fernandez. Farzaneh, MSN, TERRA [place] MASON, CDE Family Nurse Practitioner Electronically Signed By: STEVE ANDREA [place] MASON On: 03/08/2012 07:50 AM Source: [facility] MHSDOLBEYNONRADSYS Document Id: [id number] documented in this encounter Miscellaneous Notes Miscellaneous [...] Patient ( ) ( ) Call for Tire Center Manager ( ) Follow up on Results ( ) Other: PROVIDER: ( ) Call Physician ( ) Call Pharmacist ( ) Call Lab ( ) Other: Special Instructions: Comments: Source: [facility] POWERCHART Document Id: [id number] Miscellaneous - Steve Andrea APRN, C.N.P. - 03/03/2012 1:34 PM CDT Ambulatory Depart Summary [address] [address] Visit Information Name: CARLYLE, ED Visit Date: [...] your provider for clarification. Additional Information: Source: [facility] POWERCHART Document Id: [id number] Miscellaneous - Steve Andrea APRN, C.N.P. - 03/03/2012 1:34 PM CDT Ambulatory Patient Summary [address] [address] Visit Information Name: CARLYLE NOEMÍ Current Date: [...] Provider 05/20/2012 09:00 [facility] Lab 05/20/2012 09:30 [facility] Diabetes recheck Steve Andrea CNP Your Goals/Additional instructions: Source: [facility] POWERCHART Document Id: [id number] Miscellaneous - Marcial Chavez L.P.N. - 03/03/2012 1:07 PM CDT Adult Asbestos Abatement Technician Intake/History Adult Asbestos Abatement Technician Intake/History Entered On: 03/03/2012 13:09 CDT Performed [...] CNP; Reviewed Date: 02/19/2012 9:51 CDT Source: [facility] POWERCHART Document Id: [id number] documented in this encounter Plan of Treatment Not on filedocumented as of this encounter Visit Diagnoses Not on filedocumented in this encounter
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
--- OUTSIDE RECORDS SUMMARY | 2022-08-12 09:29 | XMS_ITS | Encounter Summary ---
:1960 Author Organization [facility] Address [address] [place] [address] Care Team Providers Name Role Phone Unavailable Primary Care Provider Unavailable Encounter Details Date Type Department Care Team Description 07/14/2012 Hospital Encounter HX [facility] FB FAMILYPRA Rosangela Vieira M.D. [address] [facility], [address] [place], [place] [address] (Wo rk) Social History Tobacco Use Types Packs/Day Years Used Date Smoking Tobacco: Never Assessed Sex Assigned at Date Recorded Not on file documented as of this encounter Last Filed Vital Signs Vital Sign Reading Time Taken Comments Blood Pressure 154/102 07/14/2012 2:17 PM ARTS ADMINISTRATOR OR MANAGER Pulse 68 07/14/2012 2:13 PM ARTS ADMINISTRATOR OR MANAGER Temperature - - Respiratory Rate 20 07/14/2012 2:13 PM ARTS ADMINISTRATOR OR MANAGER Oxygen Saturation - - Inhaled Oxygen Concentration - - Weight 151 kg (332 lb 14.3 oz) 07/14/2012 2:13 PM ARTS ADMINISTRATOR OR MANAGER Height - - Body Mass Index 46.61 02/19/2012 9:32 AM CDT documented in this encounter Progress Notes Mariluz Vieira M.D. - 07/14/2012 2:02 PM CST [id number] CHIEF COMPLAINT/REASON FOR VISIT Rash HISTORY OF [...] the 200 to 300s. 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 - 07/14/2012 4:00 PM CST Results Notification From: MARILUZ VIEIRA MD To: STEVE ANDREA CNP Sent: 07/14/2012 16:00:21 ARTS ADMINISTRATOR OR MANAGER ! Show up: 07/14/2012 22:00:21 [facility] Subject: Results Notification Actions: Notify patient of results Source: [facility] POWERCHART Document Id: [id number] Electronically signed by [facility] [employer] [id number] at 02/07/2017 6:42 PM CDT Miscellaneous - Mariluz Vieira M.D. - 07/14/2012 2:56 PM CST Ambulatory Patient Summary [address] [address] Visit Information Name: NOEMÍ LUNA Current Date: [...] today- A1c, lipids, and comprehensive panel Source: [facility] POWERCHART Document Id: [id number] ADMINISTRATOR OR MANAGER Miscellaneous - Mariluz Vieira M.D. - 07/14/2012 2:56 PM CST Ambulatory Depart Summary [address] [address] Visit Information Name: NOEMÍ LUNA Visit Date: 07/14/2012 14:56:30 Attending Provider: MARILUZ VIEIRA MD Primary Care Provider: STEVE ANDREA [facility] LUNA, NOEMÍ has been given the following [...] your provider for clarification. Additional Information: Source: [facility] POWERCHART Document Id: [id number] ADMINISTRATOR OR MANAGER Miscellaneous - Ynes Dia L.P.N. - 07/14/2012 2:17 PM CST Ambulatory Vitals Height Weight Ambulatory Vitals Height Weight Entered On: 07/14/2012 14:17 ARTS ADMINISTRATOR OR MANAGER Performed On: 07/14/2012 14:17 ARTS ADMINISTRATOR OR MANAGER by YNES DIA Vitals/Ht/Wt Systolic Blood Pressure : 154mmHg (HI) Diastolic Blood Pressure : 102mmHg (>HHI) NIBP Mean : 119mmHg BP Location : Left upper extremity Blood Pressure Cuff Size : Large YNES DIA - 07/14/2012 14:17 ARTS ADMINISTRATOR OR MANAGER Source: [facility] POWERCHART Document Id: [id number] ADMINISTRATOR OR MANAGER Miscellaneous - Ynes Dia L.P.N. - 07/14/2012 2:17 PM CST Ambulatory Vitals Height Weight Ambulatory Vitals Height Weight Entered On: 07/14/2012 14:19 ARTS ADMINISTRATOR OR MANAGER Performed On: 07/14/2012 14:17 ARTS ADMINISTRATOR OR MANAGER by YNES DIA Vitals/Ht/Wt Systolic Blood Pressure : 154mmHg (HI) Diastolic Blood Pressure : 102mmHg (>HHI) NIBP Mean : 119mmHg BP Location : Left upper extremity Blood Pressure Cuff Size : Large YNES DIA - 07/14/2012 14:17 ARTS ADMINISTRATOR OR MANAGER Source: [facility] [employer] Document Id: [id number] ADMINISTRATOR OR MANAGER Miscellaneous - Ynes Dia L.PPiliNPili - 07/14/2012 2:13 PM CST Adult Electric Motor Repairer Intake/History Adult Electric Motor Repairer Intake/History Entered On: 07/14/2012 14:17 ARTS ADMINISTRATOR OR MANAGER Performed On: 07/14/2012 14:13 ARTS ADMINISTRATOR OR MANAGER by YNES DIA Intake Chief Complaint : [...] : 151.00kg YNES DIA - 07/14/2012 14:13 ARTS ADMINISTRATOR OR MANAGER Subjective Pain Symptoms : No YNES DIA - 07/14/2012 14:13 ARTS ADMINISTRATOR OR MANAGER Dependent Habits Tobacco Use/Currently Using : No Smoking Status : Never smoker YNES DIA - 07/14/2012 14:13 ARTS ADMINISTRATOR OR MANAGER Caffeine Use Grid Caffeine Use : Current Type : Soft drinks Frequency : Occasionally YNES DIA - 07/14/2012 14:13 ARTS ADMINISTRATOR OR MANAGER Recreational Drug Use Grid Drug Use : None YNES DIA - 07/14/2012 14:13 ARTS ADMINISTRATOR OR MANAGER Allergy Allergies (Active) Cipro Estimated Onset Date: Unspecified ; Created By: STEVE ANDREA CNP; Reaction Status: Active ;Category: Drug ; Substance: Cipro ; Type: Allergy ; Updated By: STEVE ANDREA CNP; Reviewed Date: 07/14/2012 14:13 ARTS ADMINISTRATOR OR MANAGER Influenza Virus Vaccine Estimated Onset Date: Unspecified ; Reactions: diarrhea ; Created By: STEVE ANDREA CNP; Reaction Status: Active ; Category: Drug ; Substance: Influenza Virus Vaccine ; Type: Intolerance ; Updated By: STEVE ANDREA CNP; Reviewed Date: 07/14/2012 14:13 ARTS ADMINISTRATOR OR MANAGER Source: [facility] POWERCHART Document Id: [id number] ADMINISTRATOR OR MANAGER documented in this encounter Plan of Treatment Not on filedocumented as of this encounter Procedures Procedure Name Priority Date/Time Associated Comments Diagnosis LIPID PANEL, S Routine 07/14/2012 2:56 PM Results for this ARTS ADMINISTRATOR OR MANAGER procedure are i n the results section. HEMOGLOBIN A1C, B Routine 07/14/2012 2:56 PM Resu lts for this ARTS ADMINISTRATOR OR MANAGER procedure are i n the results section. COMPREHENSIVE Routine 07/14/2012 2:56 PM Results for this METABOLIC PANEL, S/P ARTS ADMINISTRATOR OR MANAGER procedu re are in the results section. documented in this encounter Results (ABNORMAL) Lipid Panel (07/14/2012 2:56 PM ARTS ADMINISTRATOR OR MANAGER) Patholo gist Method Time Signature Cholesterol, Total 154 0 - 200 POWERCHART MGDL HX HDL 43.0 40.0 - POWERCHART 60.0 MGDL Triglycerides 240 (H) 0 - 150 POWERCHART MGDL Calculated LDL 63 0 - 100 POWERCHART MGDL Specimen (Source) Anatomical Collection Method Collection Time Re ceived Time Location / / Volume Laterality Blood 07/14/2012 2:56 PM ARTS ADMINISTRATOR OR MANAGER Mariluz Vieira M.D. LAB BLOOD ADD-ON Performing Organization Address City/State/ZIP Code Phon e Number POWERCHART (ABNORMAL) Hemoglobin A1c (07/14/2012 2:56 PM ARTS ADMINISTRATOR OR MANAGER) P athologist Signature Hemoglobin A1c, 9.8 (H) 4.0 - 6.0 POWERCHART B Specimen (Source) Anatomical Collection Method Collection Time Re ceived Time Location / / Volume Laterality Blood 07/14/2012 2:56 PM ARTS ADMINISTRATOR OR MANAGER Mariluz Vieira M.D. LAB BLOOD ADD-ON Performing Organization Address City/State/ZIP Code Phon e Number POWERCHART (ABNORMAL) CMP (Comprehensive Metabolic Panel) (07/14/2012 2:56 PM ARTS ADMINISTRATOR OR MANAGER) [facility] gist Method Time Signature BUN (Blood [...] MLMIN POWERCHART eGFR Black/ >60 MLMIN POWERCHART Wall[place] Glucose, Fasting, S 165 (H) 70 - 99 POWERCHART MGDL Specimen (Source) Anatomical Collection Method Collection Time Re ceived Time Location / / Volume Laterality Blood 07/14/2012 2:56 PM ARTS ADMINISTRATOR OR MANAGER Mariluz Vieira M.D. LAB BLOOD ADD-ON Performing Organization Address City/State/ZIP Code Phon e Number POWERCHART documented in this encounter Visit Diagnoses Not on filedocumented in this encounter
--- OUTSIDE RECORDS SUMMARY | 2022-08-12 09:29 | XMS_ITS | Encounter Summary ---
:1960 Author Organization [facility] Address [address] [place] [address] Care Team Providers Name Role Phone Unavailable Primary Care Provider Unavailable Encounter Details Date Type Department Care Team Description 11/18/2012 Hospital Encounter HX [facility] FBHB FAMILYPRA Bhumi Andrea, HAKEEM, C.N.P. [address] [place] [phone] (Wo rk) Social History Tobacco Use Types [...] APRN, C.N.P. - 11/18/2012 12:56 PM CDT [id number] CHIEF COMPLAINT/REASON FOR VISIT 1. Diabetes type II, uncontrolled 2. Hypertension 3. Hyperlipidemia 4. Urge incontinence 5. Right hip pain HISTORY OF PRESENT ILLNESS 1. Ed is here for a recheck. He has history of diabetes type II, uncontrolled. He did have A1c drawntoday, it is extremely high at 10.7. He wanted to discuss gastric bypass again today. He was scheduled at [place], but canceled the appointment. He is now [...] Urology back. He has a urologist in [place] that he has seen in the past and he will call for an appointment with her again. 5. Right hip pain. X-ray of the right hip is negative. If symptoms continue, we will have him see physical therapy. Steve Andrea CNP/jostin DOCID: [id number] Electronically Signed By: STEVE ANDREA CNP On: 11/21/2012 04:27 PM Source: [facility] MHSDOLBEYNCONYS Document Id: [id number] documented in this encounter Nursing Notes Steve Andrea APRN, C.N.P. - 11/18/2012 1:24 PM CDT Founder President And Ceo Intake (Adult) Founder President And Ceo Intake (Adult) Entered On: 11/18/2012 13:30 CDT [...] ANDREA CNP - 11/18/2012 13:24 CDT [facility] Document Id: [id number] documented in this encounter Miscellaneous Notes Miscellaneous - Steve Andrea APRN, C.N.P. - 11/18/2012 4:42 PM CDT Ambulatory Patient Summary [address] [address] Visit Information Name: ONEMÍ LUNA [facility] Number: [id number] Current Date: 11/18/2012 16:42:37 [...] No Appointments found Your Goals/Additional instructions: Source: [facility] POWERCHART Document Id: [id number] Miscellaneous - Steve Andrea APRN, C.N.P. - 11/18/2012 4:42 PM CDT Ambulatory Depart Summary [place] [address] [facility] [place] [address] Visit Information Name: NOEMÍ LUNA [facility] Number: [id number] Visit Date: 11/18/2012 16:42:36 [...] your provider for clarification. Additional Information: Source: [facility] POWERCHART Document Id: [id number] Miscellaneous - Steve Andrea APRN, C.N.P. - [...] ANDREA CNP - 11/18/2012 13:21 CDT [facility] Document Id: [id number] Miscellaneous - Marcial Chavez L.P.N. - 11/18/2012 [...] MARCIAL FLOYD - 11/18/2012 13:08 CDT Source: [facility] [employer] Document Id: [id number] Miscellaneous - Marcial Chavez L.PPiliNPili - 11/18/2012 1:04 PM CDT Adult [place]man Intake/History Adult [place]ollyman Intake/History Entered On: 11/18/2012 13:07 CDT Performed [...] Information Given By : Patient Languages : Panamanian SCOTT MARCIAL FLOYD - 11/18/2012 13:04 CDT [...] STEVE ANDREA CNP; Reviewed Date: 07/14/2012 14:13 SEWING TEACHER Influenza Virus Vaccine Estimated Onset Date: Unspecified ; Reactions: diarrhea ; Created By: STEVE ANDREA CNP; Reaction Status: Active ; Category: Drug ; Substance: Influenza Virus Vaccine ; Type: Intolerance ; Updated By: STEVE ANDREA CNP; Reviewed Date: 07/14/2012 14:13 SEWING TEACHER Source: [facility] [employer] Document Id: [id number] documented in this encounter Plan of Treatment [...] Complete, Includes Microscopic (11/18/2012 2:04 PM CDT) [facility] gist Method Time Signature Protein, Ur, Dip >=300 (A) Negative POWERCHART Source Clean Void POWERCHART Urine HXUr Color Yellow POWERCHART Appearance Clear POWERCHART Glucose >=1000 (A) Negative POWERCHART HXBILIRUBIN Negative Negative POWERCHART Ketones, QL(U) Negative Negative POWERCHART Specific 1.025 (A) 1.020 POWERCHART [place], POCT, U pH, POCT, Urine 6.5 5.0 [...] absence of malignant disease. Test Performed by: [place] [address] Blower Installer: Benji roper III, M.D. Specimen (Source) Anatomical Collection Method Collection Time Re ceived Time Location / / Volume Laterality Blood 11/18/2012 1:43 PM CDT Steve Andrea APRN C.N.P. LAB BLOOD ADD-ON Performing Organization Address City/State/ZIP Code Phon e Number POWERCHART documented in this encounter Visit Diagnoses Not on filedocumented in this encounter
--- OUTSIDE RECORDS SUMMARY | 2022-08-12 09:29 | XMS_ITS | Encounter Summary ---
:1960 Author Organization [facility] Address [address] [place] [address] Care Team Providers Name Role Phone Unavailable Primary Care Provider Unavailable Encounter Details Date Type Department Care Team Description 07/30/2011 Hospital Encounter HX [facility] FB NURSE ONL Bhumi Moy, MEDICAL PHOTOGRAPHER, C.N.P. [address] [place] [phone] (Wo rk) Social History Tobacco Use Types Packs/Day Years Used Date Smoking Tobacco: Never Assessed Sex Assigned at Date Recorded Not on file documented as of this encounter Miscellaneous Notes Miscellaneous - Samantha Grayson, L.P.N. - 07/30/2011 11:55 AM CST Ambulatory Vitals Height Weight Ambulatory Vitals Height Weight Entered On: 07/30/2011 11:55 7TH GRADE SOCIAL STUDIES TEACHER Performed On: 07/30/2011 11:55 7TH GRADE SOCIAL STUDIES TEACHER by SAMANTHA GRAYSON Vitals/Ht/Wt Systolic Blood Pressure : 132mmHg Diastolic Blood Pressure : 82mmHg NIBP Mean : 99mmHg SAMANTHA GRAYSON - 07/30/2011 11:55 7TH GRADE SOCIAL STUDIES TEACHER Source: [facility] POWERCHART Document Id: [id number] 7TH GRADE SOCIAL STUDIES TEACHER!5 7TH GRADE SOCIAL STUDIES TEACHER documented in this encounter Plan of Treatment Not on filedocumented as of this encounter Visit Diagnoses Not on filedocumented in this encounter
--- OUTSIDE RECORDS SUMMARY | 2022-08-12 09:29 | XMS_ITS | Encounter Summary ---
:1960 Author Organization [facility] Address [address] [place] [address] Care Team Providers Name Role Phone Unavailable Primary Care Provider Unavailable Encounter Details Date Type Department Care Team Description 02/19/2012 Hospital Encounter HX [facility] FBHB FAMILYPRA Bhumi Andrea, HAKEEM, C.N.P. [address] [place] [phone] (Wo rk) Social History Tobacco Use Types [...] APRN, C.N.P. - 02/19/2012 12:00 AM CDT [id number] CHIEF COMPLAINT/ REASON FOR VISIT 1. 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 He again talked about gastric bypass today [...] 3 months SJM/clf Signed Steve Andrea, MSN, QUALITY ASSURANCE PRACTICE MANAGER, CDE Family Nurse Practitioner Electronically Signed By: STEVE ANDREA CNP On: 02/19/2012 12:02 PM Source: [facility] MHSDOLBEYNONRADSYS Document Id: [id number] documented in this encounter Miscellaneous Notes Miscellaneous - Steve Andrea APRN, C.N.P. - 02/19/2012 9:51 AM CDT Ambulatory Patient Summary [address] [address] Visit Information Name: LAZ LUNA Current Date: [...] No Appointments found Your Goals/Additional instructions: Source: [facility] [employer] Document Id: [id number] Miscellaneous - Steve Andrea APRN, C.N.P. - 02/19/2012 9:51 AM CDT Ambulatory Depart Summary [address] [address] Visit Information Name: LAZ LUNA Visit Date: [...] your provider for clarification. Additional Information: Source: [facility] POWERCHART Document Id: [id number] Miscellaneous - Samantha Chavez L.P.N. - 02/19/2012 9:35 AM CDT Ambulatory Vitals Height Weight Ambulatory Vitals Height Weight Entered On: 02/19/2012 9:36 CDT Performed On: 02/19/2012 9:35 CDT by SAMANTHA CHAVEZ Vitals/Ht/Wt Systolic Blood Pressure : 144mmHg (HI) Diastolic Blood Pressure : 86mmHg NIBP Mean : 105mmHg SAMANTHA CHAVEZ - 02/19/2012 9:35 CDT Source: [facility] POWERCHART Document Id: [id number] Miscellaneous - Samantha Chavez L.P.N. - 02/19/2012 9:32 AM CDT Adult Customer Experience Analyst Intake/History Adult Customer Experience Analyst Intake/History Entered On: 02/19/2012 9:34 CDT Performed [...] 9:32 CDT Subjective Pain Symptoms : No ASMANTHA CHAVEZ - 02/19/2012 9:32 CDT Dependent Habits [...] CNP; Reviewed Date: 12/05/2010 10:10 CDT Source: [facility] [employer] Document Id: [id number] documented in this encounter Plan of Treatment Not on filedocumented as of this encounter Visit Diagnoses Not on filedocumented in this encounter
--- OUTSIDE RECORDS SUMMARY | 2022-08-12 09:29 | XMS_ITS | Encounter Summary ---
:1960 Author Organization [facility] Address [address] [place] [address] Care Team Providers Name Role Phone Unavailable Primary Care Provider Unavailable Encounter Details Date Type Department Care Team Description 03/03/2012 Hospital Encounter HX [facility] FBHB LAB Cindy Moy A PRN, C.N.P. [address] [place], [place] [phone] (Wo rk) Social History [...] C.N.P. LAB HISTORICAL ORDERS Performing Organization Address [facility] Phon e Number POWERCHART HX STOOL OCCULT BLOOD - DAY 2 (03/02/2012 8:00 AM CDT) athologist Signature Occult Blood - Negative POWERCHART 2, Fecal Specimen (Source) Anatomical Collection Method Collection Time Re ceived Time Location / / Volume Laterality Stool 03/02/2012 8:00 AM CDT Kalia Grier APRN.N.P. LAB HISTORICAL ORDERS Performing Organization Address [facility] Phon e Number POWERCHART HX STOOL OCCULT BLOOD- DAY 1 (03/01/2012 8:00 AM CDT) athologist Signature HXOccult Bld Negative Negative POWERCHART Stl I Specimen (Source) Anatomical Collection Method Collection Time Re ceived Time Location / / Volume Laterality Stool 03/01/2012 8:00 AM CDT Kalia Grier APRN.N.P. LAB HISTORICAL ORDERS Performing Organization Address [facility] Phon e Number POWERCHART documented in this encounter Visit Diagnoses Not on filedocumented in this encounter
--- OUTSIDE RECORDS SUMMARY | 2022-08-12 09:29 | XMS_ITS | Encounter Summary ---
:1960 Author Organization [facility] Address [address] [place] [address] Care Team Providers Name Role Phone Unavailable Primary Care Provider Unavailable Encounter Details Date Type Department Care Team Description 07/24/2011 Hospital Encounter HX [facility] FBHB LAB Cindy Moy, Soumya PRN, C.N.P. [address] [place], [place] [phone] (Wo rk) Social History Tobacco Use Types Packs/Day Years Used Date Smoking Tobacco: Never Assessed Sex Assigned at Date Recorded Not on file documented as of this encounter Plan of Treatment Not on filedocumented as of this encounter Visit Diagnoses Not on filedocumented in this encounter
--- OUTSIDE RECORDS SUMMARY | 2022-08-12 09:29 | XMS_ITS | Encounter Summary ---
:1960 Author Organization [facility] Address [address] [place] [address] Care Team Providers Name Role Phone Unavailable Primary Care Provider Unavailable Encounter Details Date Type Department Care Team Description 11/18/2011 Hospital Encounter HX [facility] FBHB LAB Cindy Moy A PRN, C.N.P. [address] [place], [place] [phone] (Wo rk) Social History [...]
--- OUTSIDE RECORDS SUMMARY | 2022-08-12 09:29 | XMS_ITS | Encounter Summary ---
:1960 Author Organization [facility] Address [address] [place] [address] Care Team Providers Name Role Phone Unavailable Primary Care Provider Unavailable Encounter Details Date Type Department Care Team Description 02/19/2012 Hospital Encounter HX [facility] FBHB LAB Cindy Moy A PRN, C.N.P. [address] [place], [place] [phone] (Wo rk) Social History [...]
--- OUTSIDE RECORDS SUMMARY | 2022-08-12 09:29 | XMS_ITS | Encounter Summary ---
:1960 Author Organization [facility] Address [address] [place] [address] Care Team Providers Name Role Phone Unavailable Primary Care Provider Unavailable Encounter Details Date Type Department Care Team Description 07/24/2011 Hospital Encounter HX [facility] FBHB LAB Cindy Moy, Soumya PRN, C.N.P. [address] [place], [place] [phone] (Wo rk) Social History Tobacco Use Types Packs/Day Years Used Date Smoking Tobacco: Never Assessed Sex Assigned at Date Recorded Not on file documented as of this encounter Plan of Treatment Not on filedocumented as of this encounter Visit Diagnoses Not on filedocumented in this encounter
--- OUTSIDE RECORDS SUMMARY | 2022-08-12 09:29 | XMS_ITS | Encounter Summary ---
:1960 Author Organization [facility] Address [address] [place] [address] Care Team Providers Name Role Phone Unavailable Primary Care Provider Unavailable Encounter Details Date Type Department Care Team Description 11/18/[address] [facility] [place] FBHB FAMILYPRA Bhumi Andrea, HAKEEM, C.N.P. [address] [place] [phone] (Wo rk) Social History Tobacco Use Types [...] APRN, C.N.P. - 11/18/2011 12:00 AM CDT [id number] CHIEF COMPLAINT/ REASON FOR VISIT 1. 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 He will continue with Byetta injections twice [...] 3 months SJM/clf Signed Steve Andrea, MSN, GAME DESIGN INSTRUCTOR, CDE Family Nurse Practitioner Electronically Signed By: STEVE ANDREA CNP On: 11/19/2011 09:04 AM Source: [facility] MHSDOLBEYNONRADSYS Document Id: [id number] documented in this encounter Nursing Notes Steve Andrea APRN, C.N.P. - 11/18/2011 9:28 AM CDT Installation Manager Intake (Adult) Installation Manager Intake (Adult) Entered On: 11/18/2011 9:30 CDT [...] STEVE ANDREA - 11/18/2011 9:28 CDT Source: [employer] Document Id: [id number] CDT!42 documented in this encounter Miscellaneous Notes Miscellaneous - Steve Andrea APRN, C.N.P. - 11/18/2011 9:41 AM CDT Ambulatory Patient Summary [address] [address] Visit Information Name: NOEMÍ LUNA Current Date: [...] No Appointments found Your Goals/Additional instructions: Source: [facility] POWERCHART Document Id: [id number] Miscellaneous - Steve Andrea APRN, C.N.P. - 11/18/2011 9:41 AM CDT Ambulatory Depart Summary [address] [address] Visit Information Name: NOEMÍ LUNA Visit Date: [...] your provider for clarification. Additional Information: Source: [facility] POWERCHART Document Id: [id number] Miscellaneous - Steve Andrea APRN, C.N.P. - 11/18/2011 9:40 AM CDT Quality Measures Quality Measures Entered On: 11/18/2011 9:40 CDT Performed On: 11/18/2011 9:40 CDT by STEVE ANDREA CNP Diabetes Date of Last Foot Exam : 11/18/2011 CDT Date of Last Diabetes Education : 11/18/2011 CDT STEVE ANDREA [facility] - 11/18/2011 9:40 CDT Foot Exam Grid Left foot exam Right foot exam Dorsalis Pedis Pulse : Normal Normal Capillary Refill : Less than 3 seconds Less than 3 seconds 10 gm Monofilament Sensation Check : Intact Intact STEVE ANDREA Jim [facility] - 11/18/2011 9:40 CDT STEVE ANDREA [facility] - 11/18/2011 9:40 CDT Source: [facility] POWERCHART Document Id: [id number] CDT!13 Miscellaneous - Marcial Chavez L.P.N. - [...] explanation MARCIAL CHAVEZ 11/18/2011 9:08 CDT Source: [facility] POWERCHART Document Id: [id number] CDT!28 Miscellaneous - Marcial Chavez L.P.N. - 11/18/2011 9:04 AM CDT Adult Forge Heater Intake/History Adult Forge Heater Intake/History Entered On: 11/18/2011 9:07 CDT Performed [...] CNP; Reviewed Date: 12/05/2010 10:10 CDT Source: [facility] HOSTEXCHART Document Id: [id number] CDT!27 documented in this encounter Plan of [...]
--- OUTSIDE RECORDS SUMMARY | 2022-08-12 09:30 | XMS_ITS | Encounter Summary ---
:1960 Author Organization [facility] Address [address] [place] [address] Care Team Providers Name Role Phone Unavailable Primary Care Provider Unavailable Encounter Details Date Type Department Care Team Description 03/31/2011 Hospital Encounter HX [facility] Vishal Suarez Jr., M.D. [address] [place] [phone] (Wo rk) Social History Tobacco Use Types Packs/Day Years Used Date Smoking Tobacco: Never Assessed Sex Assigned at Date Recorded Not on file documented as of this encounter Plan of Treatment Not on filedocumented as of this encounter Visit Diagnoses Not on filedocumented in this encounter
--- OUTSIDE RECORDS SUMMARY | 2022-08-12 09:30 | XMS_ITS | Encounter Summary ---
:1960 Author Organization [facility] Address [address] [place] [address] Care Team Providers Name Role Phone Unavailable Primary Care Provider Unavailable Encounter Details Date Type Department Care Team Description 09/05/2010 Hospital Encounter HX [facility] FAMILYPRA Bhumi Andrea, HAKEEM, C.N.P. [address] [place] [phone] (Wo rk) Social History Tobacco Use Types Packs/Day Years Used Date Smoking Tobacco: Never Assessed Sex Assigned at Date Recorded Not on file documented as of this encounter Progress Notes Steve Andrea, HAKEEM, C.N.P. - 09/05/2010 12:00 AM CST [id number] CHIEF COMPLAINT/ REASON FOR VISIT 1. Diabetes [...] needed. SJM/clf Signed Steve Fernandez. Farzaneh, MSN, TEST DESK TROUBLE LOCATOR, CDE Family Nurse Practitioner Electronically Signed By:STEVE ANDREA CNP On 09/05/2010 02:13 PM Source: [facility] MHSDOLBEYNONRADSYS Document Id: [id number] RVISOR MOLDING documented in this encounter Procedure Notes Steve Andrea APRN, C.N.P. - 09/05/2010 9:47 AM CST Cancel Permanently Flu Vaccine Cancel Permanently Flu Vaccine Entered On: 09/05/2010 9:47 SUPERVISOR MOLDING Performed On: 09/05/2010 9:47 SUPERVISOR MOLDING by STEVE ANDREA CNP Cancel Permanently Flu Vaccine Cancel Permanently Flu Vaccine: Allergy/Intolerance or interaction STEVE ANDREA CNP - 09/05/2010 9:47 SUPERVISOR MOLDING Source: [facility] POWERCHART Document Id: [id number] SUPERVISOR MOLDING!3 RVISOR MOLDING documented in this encounter Miscellaneous Notes Miscellaneous - Steve Andrea APRN, C.N.P. - 09/05/2010 9:55 AM CST Ambulatory Patient Summary [address] [address] Visit Information Name: LAZ LUNA Current Date: 09/05/2010 09:55:16 Primary Care Provider: STEVE ANDREA [facility] [id number] Your Medications Here is a list of [...] No Appointments found Your Goals/Additional instructions: Source: [facility] POWERCHART Document Id: [id number] Miscellaneous - Steve Andrea, HAKEEM, C.N.P. - 09/05/2010 9:55 AM CST Ambulatory Depart Summary [address] [address] Visit Information Name: LAZ LUNA Current Date: 09/05/2010 09:55:14 Primary Care Provider: STEVE ANDREA [facility] [phone] LAZ LUNA has been given the following [...] to the patient and/or family, guardian/caregiver. Source: [facility] CemmerceCHART Document Id: [id number] Miscellaneous - Conversion, Historical Provider Ser - 09/05/2010 9:38 AM SUPERVISOR MOLDING Ambulatory Vitals Height Weight Ambulatory Vitals Height Weight Entered On: 09/05/2010 9:39 SUPERVISOR MOLDING Performed On: 09/05/2010 9:38 SUPERVISOR MOLDING by HEIDI PURCELL/Ht/Wt Systolic Blood Pressure: 130mmHg Diastolic Blood Pressure: 82mmHg NIBP Mean: 98mmHg BP Location: Left upper extremity Heart Rhythm: Regular HEIDI PURCELL - 09/05/2010 9:38 SUPERVISOR MOLDING Source: [facility] [employer] Document Id: [id number] SUPERVISOR MOLDING!7 Miscellaneous - Conversion, Historical Provider Ser - 09/05/2010 9:29 AM SUPERVISOR MOLDING Adult Gambreler Helper Intake/History Adult Gambreler Helper Intake/History Entered On: 09/05/2010 9:33 SUPERVISOR MOLDING Performed On: 09/05/2010 9:29 SUPERVISOR MOLDING by HEIDI PURCELL Intake Chief Complaint: Recheck from May. Temperature Core: 36.8C(Converted to: 98.2DegF) Peripheral Pulse Rate: 80/min Respiratory Rate: 16/min Systolic Blood Pressure: 140mmHg Diastolic Blood Pressure: 82mmHg NIBP Mean: 101mmHg BP Location: Left upper extremity Heart Rhythm: Regular Actual Weight: 152.200kg(Converted to: 335lb 9oz) Dosing Weight Clinic: 152.20kg HEIDI PURCELL 09/05/2010 9:29 SUPERVISOR MOLDING Subjective Pain Symptoms: No HEIDI PURCELL - 09/05/2010 9:29 SUPERVISOR MOLDING Dependent Habits Tobacco Use/Currently Using: No HEIDI PURCELL - 09/05/2010 9:29 SUPERVISOR MOLDING Caffeine Use Grid Caffeine Use: Current Type: Soft drinks Frequency: Occasionally HEIDI PURCELL - 09/05/2010 9:29 SUPERVISOR MOLDING Recreational Drug Use Grid Drug Use: None HEIDI PURCELL 09/05/2010 9:29 SUPERVISOR MOLDING Allergies Allergies (Active) Cipro Estimated Onset Date: Unspecified ; Created By: STEVE ANDREA CNP; Reaction Status: Active ;Category: Drug ; Substance: Cipro ; Type: Allergy ; Updated By: STEVE ANDREA CNP; Reviewed Date: 04/22/2010 10:56 CDT Source: [facility] POWERCHART Document Id: [id number] SUPERVISOR MOLDING!25 documented in this encounter Plan of Treatment Not on filedocumented as of this encounter Visit Diagnoses Not on filedocumented in this encounter
--- OUTSIDE RECORDS SUMMARY | 2022-08-12 09:30 | XMS_ITS | Encounter Summary ---
:1960 Author Organization [facility] Address [address] [place] [address] Care Team Providers Name Role Phone Unavailable Primary Care Provider Unavailable Encounter Details Date Type Department Care Team Description 09/18/2010 Hospital Encounter HX [facility] FB[facility] FAMILYPRA Uriel Eid APRN, C.N.P. [address] [place] [phone] (Wo rk) Social History Tobacco Use Types Packs/Day Years Used Date Smoking Tobacco: Never Assessed Sex Assigned at Date Recorded Not on file documented as of this encounter Progress Notes Haleigh Eid APRN, C.N.P. - 09/18/2010 12:00 AM CST [id number] IMPRESSION/REPORT/PLAN Diabetic ischemic foot ulcer Procedural pause [...] lower extremity. PVD/cmt Signed Haleigh Eid RN, STAVE BLOCK SPLITTER Geriatric Nurse Practitioner Electronically Signed By:HALEIGH EID CNP On 09/20/2010 10:33 AM [facility] Document Id: [id number] IGURATION TECHNICIAN documented in this encounter Plan of Treatment Not on filedocumented as of this encounter Visit Diagnoses Not on filedocumented in this encounter
--- OUTSIDE RECORDS SUMMARY | 2022-08-12 09:30 | XMS_ITS | Encounter Summary ---
:1960 Author Organization [facility] Address [address] [place] [address] Care Team Providers Name Role Phone Unavailable Primary Care Provider Unavailable Encounter Details Date Type Department Care Team Description 03/19/[address] [facility] FBHB FAMILYPRA MyrBhumi walker, EVAPORATOR REPAIRER, C.N.P. [address] [place] [phone] (Wo rk) Social History Tobacco Use Types [...] DIAZ LPN On: 07/22/2011 03:47 PM Source: [facility] POWERCHART Document Id: [id number] ACY COMPLIANCE MANAGER Brit Diaz L.P.N. - 07/16/2011 10:28 AM CST Diabetic Call Message left with Ed's aftab he is due for diabetic lab and for a blood pressure check with nurse. Electronically Signed By: BRIT DIAZ LPN On: 07/16/2011 10:29 AM Source: [employer] Document Id: [id number] ACY COMPLIANCE MANAGER Steve Moy APRN, C.NPiliPPili - 03/19/2011 4:37 PM CDT Manufacturing Controller Intake (Adult) Manufacturing Controller Intake (Adult) Entered On: 03/19/2011 16:39 CDT [...] MOY CNP - 03/19/2011 16:37 CDT Source: [employer] Document Id: [id number] CDT!33 documented in this encounter Miscellaneous Notes Miscellaneous - Steve Moy APRN, C.N.P. - 03/19/2011 4:46 PM CDT Ambulatory Patient Summary [address] [place] [address] Visit Information Name: NOEMÍ LUNA Current Date: 03/19/2011 16:46:01 Primary Care Provider: STEVE MOY [facility] Your Medications Here is a list of [...] No Appointments found Your Goals/Additional instructions: Source: [facility] POWERCHART Document Id: [id number] Electronically signed by Conversion, [facility] Garment Sewing Machine Operator [id number] at 02/08/2017 3:38 PM CDT Miscellaneous - Steve Moy, HAKEEM, C.N.P. - 03/19/2011 4:46 PM CDT Ambulatory Depart Summary [address] [address] Visit Information Name: NOEMÍ LUNA Current Date: 03/19/2011 16:46:00 Primary Care Provider: STEVE MOY [facility] NOEMÍ LUNA has been given the following [...] to the patient and/or family, guardian/caregiver. Source: [facility] [employer]r Document Id: [id number] Electronically signed by Dayami [facility] Garment Sewing Machine Operator [id number] at 02/08/2017 3:38 PM CDT Miscellaneous - Steve Moy APRN, C.N.P. - 03/19/2011 4:46 PM CDT Quality Measures Quality Measures Entered On: 03/19/2011 16:47 CDT Performed On: 03/19/2011 16:46 CDT by STEVE MOY CNP Diabetes Date of Last Diabetes Education: 03/19/2011 CDT STEVE MOY CNP - 03/19/2011 16:46 CDT Source: [facility] [employer] Document Id: [id number] CDT!3 Miscellaneous - Lisa Stock Provider Ser - 03/19/2011 4:28 PM CDT Adult Hat Binder Intake/History Adult Hat Binder Intake/History Entered On: 03/19/2011 16:29 CDT Performed [...] 2.75 Body Mass Index: 48.29kg/m2 [facility] 03/19/2011 16:28 CDT Subjective Pain Symptoms: No [facility] 03/19/2011 16:28 CDT Dependent Habits Tobacco Use/Currently Using: No Alcohol Use: No [facility] 03/19/2011 16:28 CDT Caffeine Use Grid Caffeine Use: Current Type: Soft drinks Frequency: Occasionally [facility] 03/19/2011 16:28 CDT Recreational Drug Use Grid Drug Use: None [facility] 03/19/2011 16:28 CDT Allergy Allergies (Active) Cipro [...] CNP; Reviewed Date: 12/05/2010 10:10 CDT Source: [employer] Document Id: [id number] CDT!27 documented in this encounter Plan of Treatment Not on filedocumented as of this encounter Visit Diagnoses Not on filedocumented in this encounter
--- OUTSIDE RECORDS SUMMARY | 2022-08-12 09:30 | XMS_ITS | Encounter Summary ---
:1960 Author Organization [facility] Address [address] [place] [address] Care Team Providers Name Role Phone Unavailable Primary Care Provider Unavailable Encounter Details Date Type Department Care Team Description 03/31/2011 Hospital Encounter [facility] Tye Mooney Jr., M.D. [address], [place] [phone] (Wo rk) Social History [...] Performed by: Dami Sphere: Pl CYL: -0.50 Randolph: 180 ADD: +1.50 Prism: 20/20 VALE CRAIG - 03/31/2011 11:13 CDT Left Eye Manifest Grid Date: 03/31/2011 CDT Performed by: Dami Sphere: Pl CYL: -0.25 Randolph: 180 ADD: +1.50 Prism: 20/20 VALE CRAIG [...] drop Phenylephrine 2.5% Eye Drops Time: 11:21 CYLINDER DIE MACHINE HELPER Tropicamide 1% Eye Drops Eye: Both eyes Tropicamide 1% Eye Drops Amount: One drop Tropicamide 1% Eye Drops Time: 11:21 CYLINDER DIE MACHINE HELPER VALE CRAIG - 03/31/2011 11:13 CDT Ocular [...] MOONEY MD - 03/31/2011 11:45 CDT Source: [facility] Document Id: [id number] CDT!37 documented in this encounter Nursing Notes Radha Graham L.PPiliNPili - 06/12/2011 11:29 AM CDT Diabetic Call Called and spoke with patient's who states that they are working through some issues with their insurance and once those are straightened out they will call and schedule the lab and blood pressure check. Electronically Signed By: RADHA GRAHAM LPN On: 06/12/2011 11:31 am Source: [facility] Document Id: [id number] documented in this encounter Miscellaneous Notes Miscellaneous - Mary Diaz L.PPiliNPili - 03/31/2011 1:57 PM CDT Quality Measures Quality Measures Entered On: 04/03/2011 13:58 CDT Performed On: 03/31/2011 13:57 CDT by MARY DIAZ LPN Diabetes Date of Last Eye Exam: 03/31/2011 CDT MARY DIAZ LPN - 04/03/2011 13:57 CDT Source: [facility] Document Id: [id number] CDT!3 Miscellaneous - Vale Craig, C.O.T. - 03/31/2011 11:23 AM CDT Ambulatory Vitals Height Weight Ambulatory Vitals Height Weight Entered On: 03/31/2011 11:25 CDT Performed On: 03/31/2011 11:23 CDT by VALE CRAIG Vitals/Ht/Wt Systolic Blood Pressure: 130mmHg Diastolic Blood Pressure: 90mmHg (HI) NIBP Mean: 103mmHg BP Location: Right upper extremity VALE CRAIG - 03/31/2011 11:23 CDT Source: [facility] Document Id: [id number] CDT!6 documented in this encounter Plan of Treatment Not on filedocumented as of this encounter Visit Diagnoses Not on filedocumented in this encounter
--- OUTSIDE RECORDS SUMMARY | 2022-08-12 09:30 | XMS_ITS | Encounter Summary ---
:1960 Author Organization [facility] Address [address] [place] [address] Care Team Providers Name Role Phone Unavailable [...] José M.D. - 04/22/2010 12:00 AM CDT [id number] IMPRESSION/REPORT/PLAN 1. Status-post ureteroscopy for treatment of a proximal left ureteral stone. This is a uric acid stone. 2. Irritative voiding symptoms. Plan Patient will follow up with his primary urologist Dr. Conley at the [facility] for his irritative voiding symptoms. I [...] Jose José M.D. Urology CC: Dr. Conley [facility]. Electronically Signed By:JOSE JOSÉ MD On 04/24/2010 03:38 PM Source: [facility] MHSDOLBEYNONRADSYS Document Id: [id number] documented in this encounter Miscellaneous Notes Miscellaneous - Panchito Mccracken, L.P.N. - 04/22/2010 10:58 AM CDT Adult Pc Analyst Intake/History Adult Pc Analyst Intake/History Entered On: 04/22/2010 10:59 CDT Performed [...] CNP; Reviewed Date: 04/22/2010 10:56 CDT Source: [facility] [employer] Document Id: [id number] CDT!22 documented in this encounter Plan of Treatment Not on filedocumented as of this encounter Visit Diagnoses Not on filedocumented in this encounter
--- OUTSIDE RECORDS SUMMARY | 2022-08-12 09:30 | XMS_ITS | Encounter Summary ---
:1960 Author Organization [facility] Address [address] [place] [address] Care Team Providers Name Role Phone Unavailable Primary Care Provider Unavailable Encounter Details Date Type Department Care Team Description 03/19/2011 Hospital Encounter HX [facility] Steve Andrea, Soumya HERRERA, C.N.P. [address] [place], [place] [phone] (Wo rk) Social History Tobacco Use Types Packs/Day Years Used Date Smoking Tobacco: Never Assessed Sex Assigned at Date Recorded Not on file documented as of this encounter Progress Notes Steve Andrea, CUSTOMS GUARD, C.N.P. - 03/19/2011 12:00 AM CDT [id number] CHIEF COMPLAINT/ REASON FOR VISIT Diabetes type [...] regular exercise program. Diabetes education done see health spa manager intake form in the EMR and I will mail him laboratory results STEVEN/clrenee Signed Steve Andrea, MSN, ROLL CARRIER, CDE Family Nurse Practitioner Electronically Signed By: STEVE ANDREA ROLL CARRIER On: 03/20/2011 12:48 PM Source: [facility] MHSDOLBEYNONRADSYS Document Id: [id number] documented in this encounter Plan of Treatment Not on filedocumented as of this encounter Visit Diagnoses Not on filedocumented in this encounter
--- OUTSIDE RECORDS SUMMARY | 2022-08-12 09:30 | XMS_ITS | Encounter Summary ---
:1960 Author Organization [facility] Address [address] [place] [address] Care Team Providers Name Role Phone Unavailable Primary Care Provider Unavailable Encounter Details Date Type Department Care Team Description 05/24/2010 Hospital Encounter HX [facility] FAMILYPRA Bhumi Andrea, HAKEEM, C.N.P. [address] [place] [phone] (Wo rk) Social History Tobacco Use Types Packs/Day Years Used Date Smoking Tobacco: Never Assessed Sex Assigned at Date Recorded Not on file documented as of this encounter Progress Notes Steve Andrea APRN, C.N.P. - 05/24/2010 12:00 AM CDT [id number] CHIEF COMPLAINT/REASON FOR VISIT Recheck contusion left [...] daily and schedule immediately with Adele Eid Collection Team Lead if any sign of infection. 2. Diabetes type 2. He is given refill on all of his medication. He declines flu shot. Recheck in 3 months fasting for laboratories. SJM/clf Signed Steve Fernandez. Farzaneh, MSN, WILLOWER, CDE Family Nurse Practitioner Electronically Signed By:STEVE ANDREA CNP On 05/29/2010 03:56 PM Source: [facility] MHSDOLBEYNONRADSYS Document Id: [id number] documented in this encounter Miscellaneous Notes Miscellaneous - Steve Andrea APRN, C.N.P. - 05/24/2010 11:41 AM CDT Ambulatory Depart Summary [place] [id number] Visit Information Name: LAZ LUNA Current Date: 05/24/2010 11:41:01 Primary Care Provider: STEVE ANDREA CNP [id number] LAZ LUNA has been given the following [...] to the patient and/or family, guardian/caregiver. Source: [facility] POWERCHART Document Id: [id number] Electronically signed by Dayami, [facility] Piece Presser [id number] at 02/09/2017 12:48 AM CDT Miscellaneous - Conversion, Historical Provider Ser - 05/24/2010 9:46 AM CDT Adult Lathe Setup Operator Intake/History Adult Lathe Setup Operator Intake/History Entered On: 05/24/2010 9:48 CDT Performed [...] CNP; Reviewed Date: 04/22/2010 10:56 CDT Source: [employer] Document Id: [id number] CDT!23 Mary Sanchez L.P.N. - 12/28/2009 11:45 AM CDT Quality Measures Quality Measures Entered On: 09/04/2010 11:45 RISK MANAGEMENT INTERN Performed On: 12/28/2009 11:45 CDT by MARY DIAZ LPN Diabetes Date of Last Foot Exam: 12/28/2009 CDT MARY DIAZ LPN - 09/04/2010 11:45 RISK MANAGEMENT INTERN Source: [employer] Document Id: [id number] RISK MANAGEMENT INTERN!3 MANAGEMENT INTERN Miscellwalter - Mary Diaz L.P.N. - 11/02/2009 11:44 AM CST Quality Measures Quality Measures Entered On: 09/04/2010 11:45 RISK MANAGEMENT INTERN Performed On: 11/02/2009 11:44 RISK MANAGEMENT INTERN by MARY DIAZ LPN Diabetes Date of Last Eye Exam: 11/02/2009 RISK MANAGEMENT INTERN MARY DIAZ LPN - 09/04/2010 11:44 RISK MANAGEMENT INTERN Source: [employer] Document Id: [id number] RISK MANAGEMENT INTERN!3 MANAGEMENT INTERN documented in this encounter Plan of Treatment Not on filedocumented as of this encounter Visit Diagnoses Not on filedocumented in this encounter
--- OUTSIDE RECORDS SUMMARY | 2022-08-12 09:30 | XMS_ITS | Encounter Summary ---
:1960 Author Organization [facility] Address [address] [place] [address] Care Team Providers Name Role Phone Unavailable Primary Care Provider Unavailable Encounter Details Date Type Department Care Team Description 04/08/2010 Hospital Encounter [facility]X [facility] FAMILYPRA Bhumi Andrea, HAKEEM, C.N.P. [address] [place] [phone] (Wo rk) Social History Tobacco Use Types Packs/Day Years Used Date Smoking Tobacco: Never Assessed Sex Assigned at Date Recorded Not on file documented as of this encounter Progress Notes Steve Andrea APRN, C.N.P. - 04/08/2010 12:00 AM CDT [id number] IMPRESSION/REPORT/PLAN 1. Kidney stone per CT scan. [...] hepatosplenomegaly. SJM/clf Signed Steve Fernandez. Farzaneh, MSN, DENTAL TECHNICIAN METAL, CDE Family Nurse Practitioner Electronically Signed By:STEVE ANDREA CNP On 04/10/2010 01:08 PM Source: [facility] MHSDOLBEYNONRADSYFeliz Document Id: [id number] documented in this encounter Nursing Notes Conversion, [...] PYLE LPN On 04/23/2010 09:18 am Source: [facility] POWERCHART Document Id: [id number] Steve Andrea APRN, C.N.P. - 04/08/2010 12:20 PM CDT Rail Director Intake (Adult) Document Has Been Updated Rail Director Intake (Adult) Entered On: 04/08/2010 12:22 CDT [...] CDT BRIT DIAZ LPN - 09/04/2010 11:43 OUTSOLE CASER Exercise Type: None Time Spent With Patient: 15 Minutes STEVE ANDREA CNP - 04/08/2010 12:20 CDT Education Diabetes Education Grid Topics: Disease process, Medications/Effectiveness - Oral Agents, Monitoring - Blood Glucose, Using Results - Blood Glucose, Chronic Complications - Preventing Individuals Taught: Patient Barriers to Learning: None evident Teaching Method: Explanation Teaching Evaluation: Verbalizes understanding STEVE ANDREA CNP - 04/08/2010 12:20 CDT Source: [facility] [employer] Document Id: [id number] OUTSOLE CASER!4 OLE CASER documented in this encounter Miscellaneous Notes Miscellaneous - Steve Andrea APRN, C.N.P. - 04/08/2010 12:24 PM CDT Ambulatory Depart Summary [address] [address] Visit Information Name: NOEMÍ LUNA Current Date: 04/08/2010 12:24:00 Primary Care Provider: STEVE ANDREA CNP [id number] NOEMÍ LUNA has been given the following [...] the patient and/or family, guardian/caregiver. Source: [facility] POWERCHART Document Id: [id number] Miscellaneous - Conversion, Historical Provider Ser - 04/08/2010 11:50 AM CDT Adult President & Ceo Intake/History Adult President & Ceo Intake/History Entered On: 04/08/2010 11:51 CDT Performed [...] Weight Clinic: 154.50kg BEBO PYLE MARÍA ELENA KNOWLEDGE MANAGEMENT ADVISOR - 04/08/2010 11:50 CDT Subjective Pain Symptoms: No BEBO PYLE MARÍA ELENA ZURITA - 04/08/2010 11:50 CDT Dependent Habits Tobacco Use/Currently Using: No Alcohol Use: No BEBO PYLE MARÍA ELENA ZURITA - 04/08/2010 11:50 CDT Caffeine Use Grid Caffeine Use: Current Type: Soft drinks Frequency: Occasionally LASHANDABEBO MARÍA ELENA KNOWLEDGE MANAGEMENT ADVISOR - 04/08/2010 11:50 CDT Recreational Drug Use Grid Drug Use: None LASHANDABEBO MARÍA ELENA KNOWLEDGE MANAGEMENT ADVISOR - 04/08/2010 11:50 CDT Allergies Allergies (Active) Cipro Estimated Onset Date: Unspecified ; Created By: STEVE ANDREA CNP; Reaction Status: Active ;Category: Drug ; Substance: Cipro ; Type: Allergy ; Updated By: STEVE ANDREA CNP; Reviewed Date: 12/28/2009 9:39 CDT Source: [email or web address] Document Id: [id number] CDT!24 documented in this encounter Plan of Treatment Not on filedocumented as of this encounter Visit Diagnoses Not on filedocumented in this encounter
--- OUTSIDE RECORDS SUMMARY | 2022-08-12 09:30 | XMS_ITS | Encounter Summary ---
:1960 Author Organization [facility] Address [address] [place] [address] Care Team Providers Name Role Phone Unavailable Primary Care Provider Unavailable Encounter Details Date Type Department Care Team Description 04/11/2010 Hospital Encounter [facility]X [facility] FAMILYPRA Bhumi Andrea, HAKEEM, C.N.P. [address] [place] [phone] (Wo rk) Social History Tobacco Use Types Packs/Day Years Used Date Smoking Tobacco: Never Assessed Sex Assigned at Date Recorded Not on file documented as of this encounter H&P Notes Steve Andrea APRN, C.N.P. - 04/11/2010 12:00 AM CDT [id number] IMPRESSION / REPORT / PLAN 1. Preoperative medical evaluation. Patient's active problems diagnostically and therapeutically optimized for planned procedure. He will be NPO after midnight the night before surgery. He will stop Metformin on 04-13-10. He is holding aspirin as of now. He will resume all medications after surgery. Appropriate paperwork completed and faxed over to [facility]. All of his questions were answered. [...] extraction with laser with Dr. José at [facility] on 04-15-10. 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 - 04/11/2010 1:37 PM CDT Reminder Msg Document Contains Addenda Addendum by BEBO PYLE LPN on 01 May 2010 10:26:50 CDT Done. From: STEVE ANDREA CNP To: BEBO PYLE LPN Sent: 04/11/2010 13:37:36 CDT ! Show up: 04/11/2010 13:36:00 CDT Subject: Reminder Msg Actions: Notify patient of results Due Date/Time: 04/11/2010 13:36:00 CDT Source: [facility] POWERCHART Document Id: [id number] Miscellaneous - Steve Andrea APRN, C.N.P. - 04/11/2010 10:43 AM CDT Ambulatory Depart Summary [address] [address] Visit Information Name: LAZ LUNA Current Date: 04/11/2010 10:43:45 Primary Care Provider: STEVE ANDREA [facility] [id number] LAZ LUNA has been given the following [...] to the patient and/or family, guardian/caregiver. Source: [facility] [employer] Document Id: [id number] Electronically signed by Conversion, [facility] Press Helper [id number] at 02/09/2017 1:31 AM CDT Miscellaneous - Conversion, Historical Provider Ser - 04/11/2010 10:19 AM CDT Adult Asphalt Dauber Intake/History Adult Asphalt Dauber Intake/History Entered On: 04/11/2010 10:20 CDT Performed [...] CNP; Reviewed Date: 04/08/2010 14:46 CDT [facility] Document Id: [id number] CDT!25 documented in this encounter Plan of [...]
--- OUTSIDE RECORDS SUMMARY | 2022-08-12 09:30 | XMS_ITS | Encounter Summary ---
:1960 Author Organization [facility] Address [address] [place] [address] Care Team Providers Name Role Phone Unavailable Primary Care Provider Unavailable Encounter Details Date Type Department Care Team Description 04/08/2010 Hospital Encounter [facility]X [facility] Jose José M.D. [address] [place] [phone] (Wo rk) Social History Tobacco Use Types Packs/Day Years Used Date Smoking Tobacco: Never Assessed Sex Assigned at Date Recorded Not on file documented as of this encounter Progress Notes Jose José M.D. - 04/08/2010 12:00 AM CDT [id number] IMPRESSION/REPORT/PLAN 1. Symptomatic left ureteral stone. PLAN [...] has seen Dr. Jarvis Heart at the [facility] for evaluation of this. It was felt that he had mild urgency with urge incontinence exacerbated by the use of diuretics. He also has a history of erectile dysfunction. The patient does not have a history of prior stones. CURRENT MEDICATIONS Post-visit Medication Reconciliation Per [facility] electronic medical record. ALLERGIES Per [facility] electronic medical record. SYSTEMS REVIEW For further details of systems review, please see separate personal history form dated 04/08/2010. PAST MEDICAL/SURGICAL HISTORY 1. Urge urinary incontinence 2. Hypertension 3. Hyperlipidemia 4. Type 2 diabetes mellitus 5. Erectile dysfunction SOCIAL HISTORY The patient is . He does not use tobacco, alcohol or recreational drugs. 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 FAMILY HISTORY Father is 83 and has [...] MD On 04/09/2010 03:57 PM [facility] Document Id: [id number] documented in this encounter Miscellaneous Notes Miscellaneous - Conversion, Historical Provider Ser - 04/08/2010 2:41 PM CDT Adult Track Repair Worker Intake/History Adult Track Repair Worker Intake/History Entered On: 04/08/2010 14:46 CDT Performed [...] CNP; Reviewed Date: 12/28/2009 9:39 CDT Source: [facility] POWERCHART Document Id: [id number] CDT!29 documented in this encounter Plan of Treatment Not on filedocumented as of this encounter Visit Diagnoses Not on filedocumented in this encounter
--- OUTSIDE RECORDS SUMMARY | 2022-08-12 09:30 | XMS_ITS | Encounter Summary ---
:1960 Author Organization [facility] Address [address] [place] [address] Care Team Providers Name Role Phone Unavailable Primary Care Provider Unavailable Encounter Details Date Type Department Care Team Description 09/05/2010 Hospital Encounter HX [facility] LAB Cindy Moy, Soumya PRN, C.N.P. [address] [place], [place] [phone] (Wo rk) Social History Tobacco Use Types Packs/Day Years Used Date Smoking Tobacco: Never Assessed Sex Assigned at Date Recorded Not on file documented as of this encounter Plan of Treatment Not on filedocumented as of this encounter Visit Diagnoses Not on filedocumented in this encounter
--- OUTSIDE RECORDS SUMMARY | 2022-08-12 09:30 | XMS_ITS | Encounter Summary ---
:1960 Author Organization [facility] Address [address] [place] [address] Care Team Providers Name Role Phone Unavailable Primary Care Provider Unavailable Encounter Details Date Type Department Care Team Description 05/01/2010 Hospital Encounter [facility]X [facility] Steve Andrea, Soumya HERRERA, C.N.P. [address] [place], [place] [phone] (Wo rk) Social History Tobacco Use Types Packs/Day Years Used Date Smoking Tobacco: Never Assessed Sex Assigned at Date Recorded Not on file documented as of this encounter Progress Notes Steve Andrea, DOUGH BRAKER, C.N.P. - 05/01/2010 12:00 AM CDT [id number] IMPRESSION/REPORT/PLAN Pyelonephritis resolving and diabetes type 2. Complete the doxycycline prescription. Creatinine is pending when results are back if creatinine is back down to normal I will call him to restart Metformin and will recheck in 1 month. CHIEF COMPLAINT/REASON FOR VISIT Recheck post hospitalization HISTORY OF PRESENT ILLNESS Ed is here for recheck. He was admitted to [facility] with pyelonephritis. He had kidney stone [...] no hepatosplenomegaly. SJM/clf Signed Steve Andrea, MSN, CARDIOVASCULAR OPERATING ROOM NURSE, CDE Family Nurse Practitioner Electronically Signed By:STEVE ANDREA CNP On 05/06/2010 11:37 AM Source: [facility] MHSDOLBEYNONRADSYS Document Id: [id number] documented in this encounter Plan of Treatment Not on filedocumented as of this encounter Visit Diagnoses Not on filedocumented in this encounter
--- OUTSIDE RECORDS SUMMARY | 2022-08-12 09:30 | XMS_ITS | Encounter Summary ---
:1960 Author Organization [facility] Address [address] [place] [address] Care Team Providers Name Role Phone Unavailable Primary Care Provider Unavailable Encounter Details Date Type Department Care Team Description 05/01/2010 Hospital Encounter [facility]X [facility] FAMILYPRA Bhumi Andrea APRN, C.N.P. [address] [place] [phone] (Wo rk) Social History Tobacco Use Types Packs/Day Years Used Date Smoking Tobacco: Never Assessed Sex Assigned at Date Recorded Not on file documented as of this encounter Miscellaneous Notes Miscellaneous - Steve Andrea APRN, C.N.P. - 05/01/2010 10:33 AM CDT Ambulatory Depart Summary [address] [id number] Visit Information Name: LAZ LUNA Current Date: 05/01/2010 10:33:21 Primary Care Provider: STEVE ANDREA [facility] [id number] LAZ LUNA has been given the following [...] to the patient and/or family, guardian/caregiver. Source: [facility] POWERCHART Document Id: [id number] Miscellaneous - Conversion, Historical Provider Ser - 05/01/2010 10:07 AM CDT Adult Dressage Instructor Intake/History Adult Dressage Instructor Intake/History Entered On: 05/01/2010 10:07 CDT Performed [...] Alcohol Use: No BEBO PYLE MARÍA ELENA AUDITING CONTROL CLERK - 05/01/2010 10:07 CDT Caffeine Use Grid Caffeine Use: Current Type: Soft drinks Frequency: Occasionally BEBO PYLE MARÍA ELENA AUDITING CONTROL CLERK - 05/01/2010 10:07 CDT Recreational Drug Use Grid Drug Use: None BEBO PYLE MARÍA ELENA AUDITING CONTROL CLERK - 05/01/2010 10:07 CDT Allergies Allergies (Active) Cipro Estimated Onset Date: Unspecified ; Created By: STEVE ANDREA CNP; Reaction Status: Active ;Category: Drug ; Substance: Cipro ; Type: Allergy ; Updated By: STEVE ANDREA CNP; Reviewed Date: 04/22/2010 10:56 CDT [facility] Document Id: [id number] CDT!24 documented in this encounter Plan of Treatment Not on filedocumented as of this encounter Visit Diagnoses Not on filedocumented in this encounter
--- OUTSIDE RECORDS SUMMARY | 2022-08-12 09:30 | XMS_ITS | Encounter Summary ---
:1960 Author Organization [facility] Address [address] [place] [address] Care Team Providers Name Role Phone Unavailable Primary Care Provider Unavailable Encounter Details Date Type Department Care Team Description 12/05/2010 Hospital Encounter [facility]X [facility] FAMILYPRA Bhumi Andrea, HAKEEM, C.N.P. [address] [place] [phone] (Wo rk) Social History Tobacco Use Types Packs/Day Years Used Date Smoking Tobacco: Never Assessed Sex Assigned at Date Recorded Not on file documented as of this encounter Progress Notes Steve Andrea, HAKEEM, C.N.P. - 12/05/2010 12:00 AM CDT [id number] CHIEF COMPLAINT/ REASON FOR VISIT Diabetes type [...] 3 months SJM/clf Signed Steve Andrea, MSN, CLOCKMAKER APPRENTICE, CDE Family Nurse Practitioner Electronically Signed By: STEVE ANDREA CNP On: 12/07/2010 10:41 Source: [facility] MHSDOLBEYNONRADSYS Document Id: [id number] documented in this encounter Nursing Notes Steve Andrea APRN, C.N.P. - 12/05/2010 5:57 PM CDT Typewriter Ribbon Winder Intake (Adult) Typewriter Ribbon Winder Intake (Adult) Entered On: 12/05/2010 17:58 CDT [...] ANDREA CNP - 12/05/2010 17:57 CDT Source: [facility] [employer]CHART Document Id: [id number] CDT!36 documented in this encounter Miscellaneous Notes Miscellaneous - Steve Andrea APRN, C.N.P. - 12/05/2010 5:55 PM CDT Ambulatory Patient Summary [address] [address] Visit Information Name: LUNA, Current Date: 12/05/2010 17:55:55 Primary Care Provider: STEVE ANDREA [facility] Your Medications Here is a list of [...] Date Time Location Reason Provider 12/30/2010 08:40 [facility] Phil diabetes Daniela MENDEZ, Tye Fields Your Goals/Additional instructions: Source: [facility] POWERCHART Document Id: [id number] Electronically signed by Conversion, [facility] Program Advocate [id number] at 02/08/2017 5:27 PM CDT Miscellaneous - Steve Andrea, HAKEEM, C.N.P. - 12/05/2010 5:55 PM CDT Ambulatory Depart Summary [address] [address] Visit Information Name: NOEMÍ LUNA Current Date: 12/05/2010 17:55:54 Primary Care Provider: STEVE ANDREA [facility] NOEMÍ LUNA has been given the following [...] to the patient and/or family, guardian/caregiver. Source: [facility] POWERCHART Document Id: [id number] Miscellaneous - Steve Andrea APRN, C.N.P. - [...] ANDREA CNP - 12/05/2010 10:22 CDT Source: [facility] POWERCHART Document Id: [id number] CDT!15 Miscellaneous - Dayami, [facility] Provider Ser - 12/05/2010 10:07 AM CDT Ambulatory Vitals Height Weight Ambulatory Vitals Height Weight Entered On: 12/05/2010 10:08 CDT Performed On: 12/05/2010 10:07 CDT by JOSE WILLIAM Vitals/Ht/Wt Systolic Blood Pressure: 130mmHg Diastolic Blood Pressure: 80mmHg NIBP Mean: 97mmHg BP Location: Left upper extremity JOSE WILLIAM Feliz - 12/05/2010 10:07 CDT Source: [facility] Document Id: [id number] CDT!6 Miscellaneous - Conversion, Historical Provider Ser - 12/05/2010 10:05 AM CDT Adult Brand Ambassadors Promotional Sales Intake/History Adult Brand Ambassadors Promotional Sales Intake/History Entered On: 12/05/2010 10:07 CDT Performed [...] STEVE ANDREA CNP; Reviewed Date: 09/05/2010 9:47 MACHINE SHOP INSPECTOR Source: [facility] Document Id: [id number] CDT!22 documented in this encounter Plan of Treatment Not on filedocumented as of this encounter Visit Diagnoses Not on filedocumented in this encounter
--- OUTSIDE RECORDS SUMMARY | 2022-08-12 09:30 | XMS_ITS | Encounter Summary ---
:1960 Author Organization [facility] Address [address] [place] [address] Care Team Providers Name Role Phone Unavailable Primary Care Provider Unavailable Encounter Details Date Type Department Care Team Description 05/14/2010 Hospital Encounter [facility]X [facility] FAMILYPRA Bhumi Andrea, HAKEEM, C.N.P. [address] [place] [phone] (Wo rk) Social History Tobacco Use Types Packs/Day Years Used Date Smoking Tobacco: Never Assessed Sex Assigned at Date Recorded Not on file documented as of this encounter Progress Notes Steve Andrea, HAKEEM, C.N.P. - 05/14/2010 12:00 AM CDT [id number] CHIEF COMPLAINT/REASON FOR VISIT 1. Contusion left lower leg 2. Diabetes type 2 HISTORY OF PRESENT ILLNESS 1. Ed states he [place] the steps at the [employer] [place] on 05[place]09-10. He bruised his left [...] results. SJM/clf Signed Steve Fernandez. Farzaneh, MSN, AML ANALYST, CDE Family Nurse Practitioner Electronically Signed By:STEVE ANDREA CNP On 05/14/2010 03:36 PM Source: [facility] MHSDOLBEYNONRADSYS Document Id: [id number] documented in this encounter Miscellaneous Notes Miscellaneous - Steve Andrea APRN, C.N.P. - 05/14/2010 10:43 AM CDT Ambulatory Depart Summary [address] [address] Visit Information Name: NOEMÍ LUNA Current Date: 05/14/2010 10:43:33 Primary Care Provider: STEVE ANDREA CNP [id number] NOEMÍ LUNA has been given the following [...] to the patient and/or family, guardian/caregiver. Source: [facility] POWERCHART Document Id: [id number] Electronically signed by Dayami, [facility] Production Troubleshooter [id number] at 02/09/2017 12:48 AM CDT Miscellaneous - Conversion, Historical Provider Ser - 05/14/2010 9:32 AM CDT Adult Radial Arm Saw Operator Intake/History Adult Radial Arm Saw Operator Intake/History Entered On: 05/14/2010 9:33 CDT Performed On: 05/14/2010 9:32 CDT by BEBO PYLE LPN Intake Chief Complaint: fell [place] [employer] on 05/09/2010 complains of left knee and [...] Using: No Alcohol Use: No BEBO PYLE COMPUTER AIDED DRAFTER - 05/14/2010 9:32 CDT Caffeine Use Grid Caffeine Use: Current Type: Soft drinks Frequency: Occasionally BEBO PYLE MARÍA ELENA [facility] - 05/14/2010 9:32 CDT Recreational Drug Use Grid Drug Use: None BEBO PYLE COMPUTER AIDED DRAFTER - 05/14/2010 9:32 CDT Allergies Allergies (Active) Cipro Estimated Onset Date: Unspecified ; Created By: STEVE ANDREA CNP; Reaction Status: Active ;Category: Drug ; Substance: Cipro ; Type: Allergy ; Updated By: STEVE ANDREA CNP; Reviewed Date: 04/22/2010 10:56 CDT Source: [employer] Document Id: [id number] CDT!24 documented in this encounter Plan of [...]
--- OUTSIDE RECORDS SUMMARY | 2022-08-12 09:30 | XMS_ITS | Encounter Summary ---
:1960 Author Organization [facility] Address [address] [place] [address] Care Team Providers Name Role Phone Unavailable Primary Care Provider Unavailable Encounter Details Date Type Department Care Team Description 02/26/2010 Hospital Encounter HX [facility] FB[facility] LAB Cindy Moy, Soumya PRN, C.N.P. [address] [place], [place] [phone] (Wo rk) Social History Tobacco Use Types Packs/Day Years Used Date Smoking Tobacco: Never Assessed Sex Assigned at Date Recorded Not on file documented as of this encounter Plan of Treatment Not on filedocumented as of this encounter Visit Diagnoses Not on filedocumented in this encounter
--- OUTSIDE RECORDS SUMMARY | 2022-08-12 09:31 | XMS_ITS | Encounter Summary ---
:1960 Author Organization [facility] Address [address] [place] [address] Care Team Providers Name Role Phone Unavailable Primary Care Provider Unavailable Encounter Details Date Type Department Care Team Description 11/29/2004 Hospital Encounter HX [facility] Vishal Suarez Jr., M.D. [address] [place] [address] (Wo rk) Social History Tobacco Use Types Packs/Day Years Used Date Smoking Tobacco: Never Assessed Sex Assigned at Date Recorded Not on file documented as of this encounter Plan of Treatment Not on filedocumented as of this encounter Visit Diagnoses Not on filedocumented in this encounter
--- OUTSIDE RECORDS SUMMARY | 2022-08-12 09:31 | XMS_ITS | Encounter Summary ---
:1960 Author Organization [facility] Address [address] [place] [address] Care Team Providers Name Role Phone Unavailable Primary Care Provider Unavailable Encounter Details Date Type Department Care Team Description 02/15/2010 Hospital Encounter HX [facility] FAMILYPRA Bhumi Andrea, HAKEEM, C.N.P. [address] [place] [phone] (Wo rk) Social History Tobacco Use Types Packs/Day Years Used Date Smoking Tobacco: Never Assessed Sex Assigned at Date Recorded Not on file documented as of this encounter Progress Notes Steve Andrea, HAKEEM, C.N.P. - 02/15/2010 12:00 AM CDT [id number] IMPRESSION/REPORT/PLAN 1. Diabetes type 2. 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 I did talk to him about possibly [...] no hepatosplenomegaly. SJM/clf Signed Steve Andrea, [facility], LONG TERM CARE PHLEBOTOMIST, CDE Family Nurse Practitioner Electronically Signed By:STEVE ANDREA CNP On 02/20/2010 09:33 AM Source: [facility] MHSDOLBEYNONRADSYS Document Id: [id number] documented in this encounter Nursing Notes Steve [...] ANDREA CNP - 02/15/2010 10:24 CDT Source: [facility] POWERCHART Document Id: [id number] CDT!10 Conversion, Historical Provider Ser - 02/15/2010 9:46 AM CDT Diabetes Nurse Intake Diabetes Nurse Intake Entered On: 02/15/2010 9:47 CDT Performed On: 02/15/2010 9:46 CDT by BEBO PYLE LPN Diabetes Nurse Intake Date of Last Foot Exam: 12/08/2009 CDT Date of Last Eye Exam: 11/02/2009 [place] BEBO PYLE LPN - 02/15/2010 9:46 CDT Source: [facility] POWERCHART Document Id: [id number] CDT!4 documented in this encounter Miscellaneous Notes [...] PYLE LPN - 02/15/2010 9:45 CDT Source: [facility] Document Id: [id number] CDT!24 Miscellaneous - Conversion, Historical Provider Ser - 02/15/2010 9:44 AM CDT Adult Licensed Certified Orthotist Intake/History Adult Licensed Certified Orthotist Intake/History Entered On: 02/15/2010 9:45 CDT Performed [...] CNP; Reviewed Date: 12/28/2009 9:39 CDT Source: [facility] Document Id: [id number] CDT!24 documented in this encounter Plan of Treatment Not on filedocumented as of this encounter Visit Diagnoses Not on filedocumented in this encounter
--- OUTSIDE RECORDS SUMMARY | 2022-08-12 09:31 | XMS_ITS | Encounter Summary ---
:1960 Author Organization [facility] Address [address] [place] [address] Care Team Providers Name Role Phone Unavailable Primary Care Provider Unavailable Encounter Details Date Type Department Care Team Description 11/28/2005 Hospital Encounter HX [facility] Vishal Suarez Jr., M.D. [address] [place] [phone] (Wo rk) Social History Tobacco Use Types Packs/Day Years Used Date Smoking Tobacco: Never Assessed Sex Assigned at Date Recorded Not on file documented as of this encounter Plan of Treatment Not on filedocumented as of this encounter Visit Diagnoses Not on filedocumented in this encounter
--- OUTSIDE RECORDS SUMMARY | 2022-08-12 09:31 | XMS_ITS | Encounter Summary ---
:1960 Author Organization [facility] Address [address] [place] [address] Care Team Providers Name Role Phone Unavailable Primary Care Provider Unavailable Encounter Details Date Type Department Care Team Description 12/28/2009 Hospital Encounter HX [facility] Bhumi Andrea, HAKEEM, C.N.P. [address] [place] [phone] (Wo rk) Social History Tobacco Use Types Packs/Day Years Used Date Smoking Tobacco: Never Assessed Sex Assigned at Date Recorded Not on file documented as of this encounter Progress Notes Steve Andrea APRN, C.N.P. - 12/28/2009 12:00 AM CDT [id number] IMPRESSION/REPORT/PLAN 1. Cellulitis left leg resolving. Continue [...] with monofilament. SJM/clf Signed Steve Andrea, MSN, AIRLINE MANAGER, CDE Family Nurse Practitioner Electronically Signed By:STEVE ANDREA CNP On 12/31/2009 01:12 PM Source: [facility] MHSDOLBEYNONRADSYS Document Id: [id number] documented in this encounter Miscellaneous Notes Miscellaneous - Steve Andrea APRN, C.N.P. - 12/28/2009 1:40 PM CDT Ambulatory Depart Summary [address] [address] Visit Information Name: LAZ LUNA Current Date: 12/28/2009 13:40:43 Primary Care Provider: LAZ ULNA has been given the following list of [...] to the patient and/or family, guardian/caregiver. Source: [facility] POWERCHART Document Id: [id number] Miscellaneous - Conversion, Historical Provider Ser - 12/28/2009 9:21 AM CDT Adult Display Associate Intake/History Adult Display Associate Intake/History Entered On: 12/28/2009 9:23 CDT Performed [...] ANDREA CNP - 12/28/2009 13:41 CDT Source: [facility] Document Id: [id number]!11 documented in this encounter Plan of Treatment Not on filedocumented as of this encounter Visit Diagnoses Not on filedocumented in this encounter
--- OUTSIDE RECORDS SUMMARY | 2022-08-12 09:31 | XMS_ITS | Encounter Summary ---
:1960 Author Organization [facility] Address [address] [place] [address] Care Team Providers Name Role Phone Unavailable Primary Care Provider Unavailable Encounter Details Date Type Department Care Team Description 07/14/[address] [facility] OW[facility] Vishal Suarez Jr., M.D. [address] [place] [address] (Wo rk) Social History Tobacco Use Types Packs/Day Years Used Date Smoking Tobacco: Never Assessed Sex Assigned at Date Recorded Not on file documented as of this encounter Plan of Treatment Not on filedocumented as of this encounter Visit Diagnoses Not on filedocumented in this encounter
--- OUTSIDE RECORDS SUMMARY | 2022-08-12 09:31 | XMS_ITS | Encounter Summary ---
:1960 Author Organization [facility] Address [address] [place] [address] Care Team Providers Name Role Phone Unavailable [...]
--- OUTSIDE RECORDS SUMMARY | 2022-08-12 09:31 | XMS_ITS | Encounter Summary ---
:1960 Author Organization [facility] Address [address] [place] [address] Care Team Providers Name Role Phone Unavailable Primary Care Provider Unavailable Encounter Details Date Type Department Care Team Description 11/02/2009 Hospital Encounter HX [facility] Vishal Suarez Jr., M.D. [address], [place] [phone] (Wo rk) Social History Tobacco Use Types Packs/Day Years Used Date Smoking Tobacco: Never Assessed Sex Assigned at Date Recorded Not on file documented as of this encounter Plan of Treatment Not on filedocumented as of this encounter Visit Diagnoses Not on filedocumented in this encounter
--- OUTSIDE RECORDS SUMMARY | 2022-08-12 09:36 | XMS_ITS | Encounter Summary ---
:1960 Author Organization [facility] Address [address] [place] [address] Care Team Providers Name Role Phone Unavailable Primary Care Provider Unavailable Encounter Details Date Type Department Care Team Description 04/02/2010 Office Visit-[facility] INTERFACE [facility] DEPT Provider, [facility] Nurs e Social History Tobacco Use Types Packs/Day Years Used Date Smoking Tobacco: Never Assessed Sex Assigned at Date Recorded Not on file documented as of this encounter Progress Notes Provider, [facility] Nurse - 04/02/2010 1:38 PM CDT Investment Associate: Mildred Linares Status: Final - Signature Encounter: [...] by:Mildred Linares L.P.N. Apr 02 2010 1:39PM STRADDLE BUG OPERATOR documented in this encounter Plan of Treatment Not on filedocumented as of this encounter Visit Diagnoses Not on filedocumented in this encounter
--- OUTSIDE RECORDS SUMMARY | 2022-08-12 09:36 | XMS_ITS | Clinical Summary ---
:1960 Author Organization [facility] Address [address] [place] [address] Care Team Providers Name Role Phone Ladan [...] Comments Blood Pressure 142/80 09/21/2018 10:15 AM GREENHOUSE FLORIST Pulse 78 09/21/2018 10:15 AM GREENHOUSE FLORIST Temperature - - Respiratory Rate - - Oxygen Saturation 96% 10/12/2014 11:45 AM GREENHOUSE FLORIST Inhaled Oxygen Concentration - - Weight 80.7 kg (178 lb) 09/21/2018 10:15 AM GREENHOUSE FLORIST per pat ient Height 182.9 cm (6') 09/21/2018 10:15 AM GREENHOUSE FLORIST Body Mass Index 24.14 09/21/2018 10:15 AM GREENHOUSE FLORIST Plan of Treatment Health Maintenance Due Date [...] on patient's age to complete this to [facility] MENINGITIS IMMUNIZATION Aged Out No longe r eligible based on patient's age to complete this to [facility] Insurance Payer Benefit Plan / Subscriber ID Effective Dates Phone Addre ss Type Group BLUE PLUS BLUE PLUS [id number] 2018-Present [phone] [id number] HMO ADVANTAGE ID [address] [place] [address] Luna,Ed Personal/Family Self 1960 [id number] (Home) [address] [place] [address] Care Teams Cover Cutter Machine Relationship Specialty Start Date End Date Ladan Song PCP - General 09/29/14 [facility] [address] [place] [address] [place] [id number] Yulisa Bernabe PA Physician Agile Developer Physician Agile Developer 03/16/15 [address] [facility] [address] [place] [address]
--- OUTSIDE RECORDS SUMMARY | 2022-08-12 09:36 | XMS_ITS | Encounter Summary ---
:1960 Author Organization [facility] Address [address] [place] [address] Care Team Providers Name Role Phone SongLadan [...] BPH (benign prostatic hyperplasia); [facility] Erectile dysfunction due to diseases cla ssified elsewhere [facility] [address] [place], [place] [address] [address] [address]LO[address], [address] [place] [address] (Work) [place] [address] [place] [address] Social History Tobacco Use Types [...] by PCP - Ladan Song at the [facility]. He has numerous urologic concerns today as listed above. His last visit with [facility] U[facility] was with Dr. Heart in December [...] least since 2003 when he his from [facility]. His sensation is relatively normal and he [...] unsure what type SOCIAL HISTORY: - from [facility] 2003 - no intercourse. 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 Never smoked. reports that he has never [...] Signature PSA 1.48 0 - 4 ug/L [facility] Specimen Anatomical Collection Method Collection Time Receive d Time (Source) Location / / Volume Laterality Blood specimen 04/10/2015 2:06 PM 015 2:07 (specimen) CDT PM CDT Yulisa [facility] - BLOOD ORDERABLES Performing Organization Address City/[facility]/ZIP Code Phon e Number [facility] [address] (ABNORMAL) Basic metabolic panel (04/10/2015 2:06 PM CDT) [facility] gist Method Time Signature Sodium 140 133 - 144 [facility] mmol/L [facility] Potassium 3.9 3.4 - 5.3 [facility] mmol/L [facility] Chloride 107 94 - 109 [facility] mmol/L [facility] Carbon Dioxide 23 20 - 32 [facility] mmol/L [facility] Anion Gap 9 3 - 14 [facility] mmol/L [facility] Glucose 122 (H) 70 - 99 [facility] mg/dL [facility] Urea Nitrogen 16 7 - 30 [facility] mg/dL [facility] Creatinine 0.82 0.66 - [facility] 1.25 [facility] mg/dL [facility] GFR Estimate >90 >60 [facility] Non GFR Calc mL/min/1. [facility] 7m2 [facility] GFR Estimate >90 >60 [facility] If Black GFR Calc mL/min/1. [place] [facility] 7m2 [facility] Calcium 9.2 8.5 - [facility] 10.1 [facility] mg/dL [facility] Specimen Anatomical Collection Method Collection Time Receive d Time (Source) Location / / Volume Laterality Blood specimen 04/10/2015 2:06 PM 015 2:07 (specimen) CDT PM CDT Yulisa [facility] - BLOOD ORDERABLES Performing Organization Address City/State/ZIP Code Phon e Number [facility] [address] [place] [address] [facility] documented in this encounter Visit Diagnoses Diagnosis [...] organs documented in this encounter Care Teams Manager Foreign Relationship Specialty Start Date End Date Song, Ladan PCP - General 09/29/14 [facility] [address] [facility] [address] [place], [place] [address] Yulisa Bernabe PA Physician Metal Furniture Polisher Physician Metal Furniture Polisher 03/16/[address] [place] [address] [address] [place], [place] [id number] documented as of this encounter
--- OUTSIDE RECORDS SUMMARY | 2022-08-12 09:36 | XMS_ITS | Encounter Summary ---
:1960 Author Organization [facility] Address [address] [place] [address] Care Team Providers Name Role Phone Ladan Song Primary Care Provider Reason for Visit Reason Comments Consult Bariatric Consult Encounter Details Date Type Department Care Team Description 10/12/2014 Office Visit Surgery Clinic Joy Núñez Morbid obesity (H) Tigist Mcmullen (Primary Dx) [address] 1st Floor, Clinic [address]E [address] [place] [address] (Wo rk) [address] [phone] Social History Tobacco Use Types Packs/Day Years Used Date Smoking Tobacco: Never Alcohol Use Standard Drinks/Week Comments No 0 (1 standard drink = 0.6 oz pure alcoho l) Sex Assigned at Date Recorded Not on file documented as of this encounter Last Filed Vital Signs Vital Sign Reading Time Taken Comments Blood Pressure 148/82 10/12/2014 11:45 AM [employer]ICE OFFICER Pulse 51 10/12/2014 11:45 AM UN[employer]ORM PAT[employer]OL POLICE OFFICER Temperature - - Respiratory Rate - - Oxygen Saturation 96% 10/12/2014 11:45 AM UNIFORM PATROL POLICE OFFICER Inhaled Oxygen Concentration - - Weight 152.5 kg (336 lb 1.6 oz) 10/12/2014 11:45 AM [employer] PAT[employer]OL POLICE OFFICER Height 182.9 cm (6') 10/12/2014 11:45 AM UN[employer]ORM PATROL POLICE OFFICER Body Mass Index 45.58 10/12/2014 11:45 AM [employer]ROL POLICE OFFICER documented in this encounter Patient Instructions Patient InstructionsJoy Núñez PA-C - 10/12/2014 1:55 PM [employer] POLICE OFFICER PREOPERATIVE WEIGHT LOSS SURGERY TASKLIST Tentative surgery: sleeve Approximate Month and Year: Unknown depending on how much of his [place] visits are transferrable Surgeon: Lien Khanna Insurance Coverage: BC Exclusions: None __x___To view Seminar. To sign Research Consent Form. __x___To register on [employer]. __x___To receive Decision Making Handout to read. Letter of support from primary care provider. Labs ordered and treated by primary care provider, results faxed to us. See Surgeon if interested in having surgery here at the [facility] Lose 5 lbs prior to surgery from today`s weight of 336 lbs. Per patient he has already lost 16 lbs at [facility]. Will confirm when receive records Exercise: Minimum [...] you have completed the psychological evaluation, required flight radio operator visits and are within5 lbs of your goal weight, call the quenching car operator to finalize the surgery date and schedule [...] to surgery, call Nicki Bar RN at [phone]. ___Fax #: [phone] (to send preoperative documents). ___Fax #: [phone] (to send FMLA or return to work forms). ___Scheduler for Dr Emmanuel is Nicole. . . ___Scheduler for Dr Salazar is Amol. . . ___Call the Call Center at [phone] for appointment scheduling and nurse help after surgery. ORM PATROL POLICE OFFICER documented in this encounter Progress Notes Joy Núñez PA-C - 10/12/2014 1:18 PM CST Department of Surgery Weight Loss [facility] [place] Mail Code [address] [place] [address] Date: October 12, 2014 New Bariatric Surgery Consultation RE: Laz Luna MR#: [id number] : 1960 Requesting provider: Cintia Elizondo Chief [...] success with weight loss attempts, such as [facility] program. Over the years he has had a maximum weight loss of 60 lbs. The heaviest weight attained by patient is 400 lbs. No previous weight loss surgery. He has gone through the program and per the patient he is set up to have surgery at [place] by the end of November. He states [...] on file ??? 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 He reports seeing the [facility] and being all ready for surgery. [...] the end of November. Get records from [place]. Approximate surgery month: November 2014 possibly if all complete and candidate for surgery. Seminar watched: yes Research consent signed: no, need to do at [facility] visit Decision making handout given to patient at [facility]: yes Please check you insurance company for an exclusions Letter from PCP and preop labs Knitting Machine Fixer visits monthly for 6 months. (saw RD today and may at the [facility] already) Psychological evaluation, get from [facility] Consultations: cardiology: need from [facility] See surgeon possibly after reviewing records from [place] Required weight loss: 5 lbs prior to surgery from today's weight of 336 lbs 1.6 oz. Must be within 5lbs from your required weight at your 3 week preop weight check in order to keep your surgery date. (Per patient he has already gone from 352 to 336 today at the [facility]) If this is accurate per his [place] records we will have him lose 5 more pounds from 336 lbs. Goal 331 lbs. 3 weeks before surgery you will go to a pre-op class, anesthesia clinic and nurse clinic visit. These will be scheduled by our schedulers. If any questions prior to surgery, call Nicki Bar RN at [phone]. Call the Call Center at [phone] for appointment scheduling and nurse help after surgery. Sincerely, Joy Núñez PA-C [phone] ORM PATROL POLICE OFFICER documented in this encounter Nursing Notes Shanice [...] Shanice Noe; October 12, 2014; 11:48 AM??) ORM PATROL POLICE OFFICER documented in this encounter Miscellaneous Notes Addendum Note - Shanice Noe CMA - 10/20/2014 12:26 PM [employer] POLICE OFFICER Addended by: SHANICE NOE on: 10/20/2014 12:26 PM Modules accepted: Medications ORM PATROL POLICE OFFICER documented in this encounter Plan of Treatment Not on filedocumented as of this encounter Visit Diagnoses Diagnosis Morbid obesity (H) - Primary Morbid obesity documented in this encounter Care Teams Senior Principal Architect Relationship Specialty Start Date End Date Ladan Song PCP - General 09/29/14 [facility] [address] [place] [address] [address] [place] [address] documented as of this encounter
--- OUTSIDE RECORDS SUMMARY | 2022-08-12 09:36 | XMS_ITS | Encounter Summary ---
:1960 Author Organization [facility] Address [address] [place] [address] Care Team Providers Name Role Phone Duncan [...] on filedocumented in this encounter Care Teams Sterile Products Processor Relationship Specialty Start Date End Date Ladan Song PCP - General 09/29/14 [facility] [address] [place] [address] [place] [address] Yulisa Bernabe PA Physician Wood Experimental Mechanic Physician Wood Experimental Mechanic 03/16/15 [address] [facility] [address] [place], [place] [address] documented as of this encounter
--- OUTSIDE RECORDS SUMMARY | 2022-08-12 09:36 | XMS_ITS | Encounter Summary ---
:1960 Author Organization [facility] Address [address] [place] [address] Care Team Providers Name Role Phone Ladan Song Primary Care Provider Encounter Details Date Type Department Care Team Description 10/12/2014 Allied Health/Nurse Surgery Clinic Crissy Amador Visit Stephon Nolen [address] [facility] 1st Floor, Clinic [address]E [address] [place] [address] [facility] [address] [facility] [address] [place] [address] [phone] Social History Tobacco Use Types Packs/Day Years [...] restaurant; fast food occasionally Types of Foods: Marshallese salad; [employer] hamburger Physical Activity: Types of [...] 60 minutes. Crissy Donaldson, ROBERT, LD, CLT [place] CERAMIST HELPER documented in this encounter Plan of Treatment Not on filedocumented as of this encounter Visit Diagnoses Not on filedocumented in this encounter Care Teams Concrete Mixing Plant Superintendent Relationship Specialty Start Date End Date Ladan Song PCP - General 09/29/14 [facility] [address] [place] [address] [place] [address] documented as of this encounter
--- OUTSIDE RECORDS SUMMARY | 2022-08-12 09:36 | XMS_ITS | Encounter Summary ---
:1960 Author Organization [facility] Address [address] [place] [address] Care Team Providers Name Role Phone Unavailable Primary Care Provider Unavailable Encounter Details Date Type Department Care Team Description 02/19/2010 Office Visit-[facility] INTERFACE [facility] DEPT Provider, [facility] Nurs e Social History Tobacco Use Types Packs/Day Years Used Date Smoking Tobacco: Never Assessed Sex Assigned at Date Recorded Not on file documented as of this encounter Progress Notes Provider, [facility] Nurse - 02/19/2010 1:39 PM CDT Financial Services Manager: Mildred Linares Status: Final - Signature Encounter: [...] results and visit notes form [facility]. [facility] #[phone] please call patient. [phone] Thanks Tonie faxed to [phone] mildred Electronically signed by:Mildred Linares L.P.N. Feb 19 2010 1:39PM TOUR AGENT documented in this encounter Plan of Treatment Not on filedocumented as of this encounter Visit Diagnoses Not on filedocumented in this encounter
--- OUTSIDE RECORDS SUMMARY | 2022-08-12 09:36 | XMS_ITS | Encounter Summary ---
:1960 Author Organization [facility] Address [address] [place] [address] Care Team Providers Name Role Phone Unavailable Primary Care Provider Unavailable Encounter Details Date Type Department Care Team Description 05/03/2013 [facility] Unspecified adjustment System in [place] [facility] [place] reaction (Primary Dx) Psychology [address] [place] [address] [place] [address] [phone] Social History Tobacco Use Types Packs/Day Years [...]
--- OUTSIDE RECORDS SUMMARY | 2022-08-12 09:36 | XMS_ITS | Encounter Summary ---
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
--- OUTSIDE RECORDS SUMMARY | 2022-08-12 09:36 | XMS_ITS | Encounter Summary ---
:1960 Author Organization [facility] Address [address] [place] [address] Care Team Providers Name Role Phone Unavailable Primary Care Provider Unavailable Encounter Details Date Type Department Care Team Description 03/29/2010 Office Visit-[facility] INTERFACE [facility] DEPT Unknown, Provider Social History Tobacco Use Types Packs/Day Years Used Date Smoking Tobacco: Never Assessed Sex Assigned at Date Recorded Not on file documented as of this encounter Progress Notes Unknown, Provider - 03/29/2010 11:54 AM CDT Cheesemaker Helper: Mallorie Armendariz Status: Final - Signature Encounter: [...] transferred the call. Electronically signed by:Mallorie Armendariz [facility] Mar 29 2010 11:57AM NEEDLEMAKER documented in this encounter Plan of Treatment Not on filedocumented as of this encounter Visit Diagnoses Not on filedocumented in this encounter
--- OUTSIDE RECORDS SUMMARY | 2022-08-12 09:36 | XMS_ITS | Encounter Summary ---
:1960 Author Organization [facility] Address [address] [place] [address]. [place] [address] Care Team Providers Name Role Phone Unavailable Primary Care Provider Unavailable Encounter Details Date Type Department Care Team Description 12/26/2009 Office Visit-[facility] UROLOGY CLINIC AND Alex Heart MD [facility] [address] [facility] AND UROLOGIC CANCERS [address] [place] [address] 4TH FLOOR, [address] [place] [address], (Fax ) [address] [address] Social History Tobacco Use Types Packs/Day Years Used Date Smoking Tobacco: Never Assessed Sex Assigned at Date Recorded Not on file documented as of this encounter Progress Notes Jarvis Heart - 12/26/2009 1:40 PM CDT Certified Surgical Tech/First Assistant: Jarvis Heart Status: Final - Signature Encounter: 26 Dec 2009 Type: Uro Prostate Visit Urologic Surgery [facility] Mail Code [address] [place] [address] [place] [address] Office: [phone] RE: Laz Luna : 1960 [place]: 12/26/2009 [...] any children. 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 He does not smoke and does not [...] time to take effect. A flexible 16 Uzbek cystoscope was then inserted through the urethra [...] of Urology [id number] cc: Cindy Moy NP [address] [address] Electronically signed by:Jarvis Heart M.D. Dec 27 2009 4:27PM PRESS CUTTER documented in this encounter Plan of Treatment Not on filedocumented as of this encounter Visit Diagnoses Not on filedocumented in this encounter
--- OUTSIDE RECORDS SUMMARY | 2022-08-12 09:36 | XMS_ITS | Encounter Summary ---
:1960 Author Organization [place] Address [address] [place] [address] Care Team Providers Name Role Phone Ladan Song Primary Care Provider Reason for Visit Reason Comments Clinic Care Coordination - Follow-up Encounter Details Date Type Department Care Team Description 10/28/2014 Documentation Only Surgery Clinic Xochitl [facility] Care Alan Fountain RN Coordination - n Building [address] [place] [address] Follow-up 1st Floor, Clinic [facility] [address] [id number] [address] [phone] [place], [place] (Work) [address] Social History Tobacco Use [...] on filedocumented in this encounter Care Teams Rn Surgery Relationship Specialty Start Date End Date Ladan Song PCP - General 09/29/14 [facility] [address] [place] [address] [address] [place], [place] [phone] documented as of this encounter
--- OUTSIDE RECORDS SUMMARY | 2022-08-12 09:36 | XMS_ITS | Encounter Summary ---
:1960 Author Organization [place] Address [address] [place] [address]. [place] [address] Care Team Providers Name Role Phone Ladan Song Primary Care Provider Yulisa Bernabe Unavailable Reason for Visit Reason Onset Date Comments Results 04/23/2015 Encounter Details Date Type Department Care Team Description 04/23/2015 [facility] uYlisa Holt PA Results FOR PROSTATE AND UROLOGIC [facility] 9[address] [place] [address] 4TH FLOOR, [address] 420 [facility] 394 [place], [place] [phone] Social History Tobacco Use [...] you first. His cell phone number is: [phone] Thank you!! documented in this encounter Plan of Treatment Not on filedocumented as of this encounter Visit Diagnoses Not on filedocumented in this encounter Care Teams Finisher Hot Strip Relationship Specialty Start Date End Date Ladan Song PCP - General 09/29/14 [facility] 7 [facility] [address] [place] [address] Yulisa Bernabe PA Physician Leadership Coach Physician Leadership Coach 03/16/15 420 [facility] 394 [place], [place] [phone] documented as of this encounter
--- OUTSIDE RECORDS SUMMARY | 2022-08-12 09:36 | XMS_ITS | Encounter Summary ---
:1960 Author Organization [place] Address [address] [place] [address] Care Team Providers Name Role Phone Unavailable Primary Care Provider Unavailable Encounter Details Date Type Department Care Team Description 06/28/2013 Office Visit [facility] Mehreen Perez Av ed adjustment System in [place] HAKEEM Roberson reaction (Primary Dx) Psychiatry [address] [phone] Social History Tobacco Use Types Packs/Day Years [...] documented in this encounter Progress Notes Luz Lindsya - 06/29/2013 12:06 PM CDT BRIEF DISCUSSION NOTE: Time spent with client approximately 45 - 50 minutes. This is the 4th session for the [facility] Program on weight management. Specifically accomplished [...] 341.5 pounds. AM:karinas D: 06-28-13 Mehreen Perez, CLINICAL FACULTY T: 06-29-13 documented in this encounter Plan of Treatment Not on filedocumented as of this encounter Visit Diagnoses Diagnosis Unspecified adjustment reaction - Primar y documented in this encounter
--- OUTSIDE RECORDS SUMMARY | 2022-08-12 09:36 | XMS_ITS | Encounter Summary ---
:1960 Author Organization [place] Address [address] [place] [address] Care Team Providers Name Role Phone DuncanLadan [...] on filedocumented in this encounter Care Teams Accounts Payable Administrator Relationship Specialty Start Date End Date Ladan Song PCP - General 09/29/14 [facility] [address] [place] [address] [place] [address] Yulisa Bernabe PA Physician Patent Leather Sorter Physician Patent Leather Sorter 03/16/15 420 [facility] 394 [place] [address] documented as of this encounter
--- OUTSIDE RECORDS SUMMARY | 2022-08-12 09:36 | XMS_ITS | Encounter Summary ---
:1960 Author Organization [place] Address [address] [place] [address] Care Team Providers Name Role Phone Ladan [...] PA Done (New patient AND UROLOGIC CANCERS [facility] Urology consult for testicular [facility] 909 [facility] pain. ) 4TH FLOOR, [address], [facility] 394 [place] [address] Social History Tobacco Use Types Packs/Day Years Used Date Smoking Tobacco: Never Alcohol Use Standard Drinks/Week Comments No 0 (1 standard drink = 0.6 oz pure alcoho l) Sex Assigned at Date Recorded Not on file documented as of this encounter Plan of Treatment Not on filedocumented as of this encounter Visit Diagnoses Not on filedocumented in this encounter Care Teams Mechanical Engineering Intern Relationship Specialty Start Date End Date Ladan Sogn PCP - General 09/29/14 [facility] [address] [place] [address] [place] [phone] Yulisa Bernabe PA Physician Rotary Drum Dyer Physician Rotary Drum Dyer 03/16/[address] [place] [address] documented as of this encounter
--- OUTSIDE RECORDS SUMMARY | 2022-08-12 09:36 | XMS_ITS | Encounter Summary ---
:1960 Author Organization [place] Address [address] [place] [address] Care Team Providers Name Role Phone Unavailable Primary Care Provider Unavailable Encounter Details Date Type Department Care Team Description 02/15/2010 Office Visit-P INTERFACE P DEPT Jessee Iniguez [facility] [address] [address] (Wo rk) Social History Tobacco Use Types Packs/Day Years Used Date Smoking Tobacco: Never Assessed Sex Assigned at Date Recorded Not on file documented as of this encounter Progress Notes Estephania Iniguez - 02/15/2010 12:16 PM CDT Builder Beam: Estephania Iniguez Status: Final - Signature Encounter: [...] by:Estephania Iniguez MA Feb 15 2010 12:22PM EMBEDDED SOFTWARE PROGRAMMER documented in this encounter Plan of Treatment Not on filedocumented as of this encounter Visit Diagnoses Not on filedocumented in this encounter
--- OUTSIDE RECORDS SUMMARY | 2022-08-12 09:36 | XMS_ITS | Encounter Summary ---
:1960 Author Organization [place] Address [address] [place] [address] Care Team Providers Name Role Phone Ladan Song Primary Care Provider Yulisa Bernabe PA Unavailable Reason for Visit Reason Comments Consult personal issues, would not explain Encounter Details Date Type Department Care Team Description 09/21/2018 Office Visit [facility] Urology and Keyla Haider le dysfunction, Inst for Prostate and PATIENCE [place] unspecified erectile Urologic Cancers 909 [facility] SE dysfunction type 909 [place], [place] (Primary Dx) [address]th [address] [place] [address] [phone] [address] (Work) [phone] Social History Tobacco Use Types Packs/Day Years Used Date Smoking Tobacco: Never Smokeless Tobacco: Never Alcohol Use Standard Drinks/Week Comments No 0 (1 standard drink = 0.6 oz pure alcoho l) Sex Assigned at Date Recorded Not on file documented as of this encounter Last Filed Vital Signs Vital Sign Reading Time Taken Comments Blood Pressure 142/80 09/21/2018 10:15 AM REIMBURSEMENT SPEC Pulse 78 09/21/2018 10:15 AM REIMBURSEMENT SPEC Temperature - - Respiratory Rate - - Oxygen Saturation - - Inhaled Oxygen Concentration - - Weight 80.7 kg (178 lb) 09/21/2018 10:15 AM REIMBURSEMENT SPEC per pat ient Height 182.9 cm (6') 09/21/2018 10:15 AM REIMBURSEMENT SPEC Body Mass Index 24.14 09/21/2018 10:15 AM REIMBURSEMENT SPEC documented in this encounter Progress Notes Keyla [...] of erectile dysfunction. His last visit with [facility] Urology was 04/10/2015 with Jess Bernabe [...] since 2003 when he his from the [facility]. For the past 3-5 years, he [...] unsure what type. SOCIAL HISTORY: - from [facility] 2003 - no intercourse. 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 Never smoked. reports that has [...] LABS: The last test results for Ms. aLz Luna were reviewed. PSA Date Value Ref [...] on the front of his truckif the licensed insurance sales agent wouldn't cooperate with him. [...] stood up and walked out of [facility] stating that I was leaving now. The patient then proceeded to walk out of clinic into the [facility]. -Urology patient care workers compensation claims supervisor was notified and an ACT report [...] Keyla Haider PA-C Department of Urologic Surgery BURSEMENT SPEC documented in this encounter Nursing Notes Rdaha Sultana LPN - 09/21/2018 10:30 AM CST [...] file Radha Sultana LPN 09/21/2018 10:17 AM BURSEMENT SPEC documented in this encounter Plan of Treatment Not on filedocumented as of this encounter Visit Diagnoses Diagnosis Erectile dysfunction, unspecified erecti le dysfunction type - Primary documented in this encounter Care Teams Airfield Services Officer Relationship Specialty Start Date End Date Ladan Song PCP - General 09/29/14 [facility] [address] [place] [address] [place] [address] Yulisa Bernabe PA Physician Proof Inspector Physician Proof Inspector 03/16/[address] [place] [address] 394 [place] [address] documented as of this encounter
--- OUTSIDE RECORDS SUMMARY | 2022-08-12 09:36 | XMS_ITS | Encounter Summary ---
:1960 Author Organization [place] Address [address] [place] [address] Care Team Providers Name Role Phone Unavailable Primary Care Provider Unavailable Encounter Details Date Type Department Care Team Description 07/12/[address] [facility] ChrisMehreen ed adjustment System in [place] HAKEEM Roberson reaction (Primary Dx) Psychiatry [address] [phone] Social History Tobacco Use Types Packs/Day Years [...] 154.2 kg (340 lb) 07/14/2013 2:30 PM TIRE BUILDER HEAVY SERVICE Height - - Body Mass Index - - documented in this encounter Progress Notes Luz Lindsay - 07/18/2013 5:25 AM CST BRIEF DISCUSSION NOTE: Time spent with client approximately 45 - 50 minutes. This was our 6th session for the [facility] Program. The participant was present today. This session primarily focused on negative and positive self talk. Other additional topics were unrealistic expectations, inflexibility, all or nothing thinking, depression, anxiety, stress and emotional eating. Ed weighed in today at 340.7 pounds. Ed was invited to join the group next week. AM:phil D: 07-14-13 Mehreen Perez, AIR POLLUTION INSPECTOR T: 07-18-13 BUILDER HEAVY SERVICE documented in this encounter Plan of Treatment Not on filedocumented as of this encounter Visit Diagnoses Diagnosis Unspecified adjustment reaction - Primar y documented in this encounter
--- OUTSIDE RECORDS SUMMARY | 2022-08-12 09:36 | XMS_ITS | Encounter Summary ---
:1960 Author Organization [place] Address [address] [place] [address] Care Team Providers Name Role Phone Unavailable Primary Care Provider Unavailable Encounter Details Date Type Department Care Team Description 07/19/2013 Psyche [facility] [place] Unspecified adjustment System in [place] [facility] [place] reaction (Primary Dx) Psychology [address] [place] [address] [place] [address] [phone] Social History Tobacco Use Types Packs/Day Years Used Date Smoking Tobacco: Never Assessed Sex Assigned at Date Recorded Not on file documented as of this encounter Plan of Treatment Not on filedocumented as of this encounter Visit Diagnoses Diagnosis Unspecified adjustment reaction - Primar y documented in this encounter
--- OUTSIDE RECORDS SUMMARY | 2022-08-12 09:36 | XMS_ITS | Encounter Summary ---
:1960 Author Organization [place] Address [address] [place] [address] Care Team Providers Name Role Phone Unavailable Primary Care Provider Unavailable Encounter Details Date Type Department Care Team Description 07/13/2013 Office Visit [facility] Mehreen Perez ed adjustment System in [place] HAKEEM Roberson reaction (Primary Dx) Psychiatry [address] [phone] Social History Tobacco Use Types Packs/Day Years Used Date Smoking Tobacco: Never Assessed Sex Assigned at Date Recorded Not on file documented as of this encounter Progress Notes Luz Lindsay - 07/18/2013 5:12 AM CST BRIEF DISCUSSION NOTE: Time spent with client approximately 45 - 50 minutes. The patient appoints to the clinic for a missed session of the [facility] Program. Session #2 was the topic of discussion for our meeting today. The session primarily focused on goal setting long termand short term. We also spoke briefly about return to work and dietary changes post surgery that will need to occur. The patient did report meeting with a dietitian over in the [facility] where more of this was being discussed. The material was presented from the book My Weight Loss Solution a [facility] Guide. The patient participated actively in discussion one-to-one. No weight was obtained today. The patient was invited to join the group next week. AM:phil D: 07-14-13 CAROL Graf T: 07-18-13 OENGRAVING ETCHER documented in this encounter Plan of Treatment Not on filedocumented as of this encounter Visit Diagnoses Diagnosis Unspecified adjustment reaction - Primar y documented in this encounter
--- OUTSIDE RECORDS SUMMARY | 2022-08-12 09:36 | XMS_ITS | Encounter Summary ---
:1960 Author Organization [place] Address [address] [place] [address] Care Team Providers Name Role Phone Unavailable Primary Care Provider Unavailable Encounter Details Date Type Department Care Team Description 07/08/2013 Psyche [facility] [place] , Sebas Mora [facility] [place] [facility] [place] [address] [place] [address] [place] [address] [phone] (Wo rk) Social History Tobacco Use Types Packs/Day Years Used Date Smoking Tobacco: Never Assessed Sex Assigned at Date Recorded Not on file documented as of this encounter Plan of Treatment Not on filedocumented as of this encounter Visit Diagnoses Not on filedocumented in this encounter
--- OUTSIDE RECORDS SUMMARY | 2022-08-12 09:36 | XMS_ITS | Encounter Summary ---
:1960 Author Organization [place] Address [address] [place] [address] Care Team Providers Name Role Phone Unavailable Primary Care Provider Unavailable Encounter Details Date Type Department Care Team Description 07/05/2013 Psyche [facility] [place] Unspecified adjustment System in [place] [facility] [place] reaction (Primary Dx) Psychology [address] [place] [address] [place] [address] [phone] Social History Tobacco Use Types Packs/Day Years Used Date Smoking Tobacco: Never Assessed Sex Assigned at Date Recorded Not on file documented as of this encounter Plan of Treatment Not on filedocumented as of this encounter Visit Diagnoses Diagnosis Unspecified adjustment reaction - Primar y documented in this encounter
--- OUTSIDE RECORDS SUMMARY | 2022-08-12 09:36 | XMS_ITS | Encounter Summary ---
:1960 Author Organization [place] Address [address] [place] [address] Care Team Providers Name Role Phone Unavailable Primary Care Provider Unavailable Encounter Details Date Type Department Care Team Description 07/26/2013 Office Visit [facility] Chris Mehreen Av ed adjustment System in [place] HAKEEM Roberson reaction (Primary Dx) Psychiatry [address] [phone] Social History Tobacco Use Types Packs/Day Years [...] (336 lb 9.6 oz) 07/27/2013 4:25 PM BUSINESS LEADER Height - - Body Mass Index - - documented in this encounter Progress Notes Luz Lindsay - 07/28/2013 7:18 AM CST BRIEF DISCUSSION NOTE: Time spent with client approximately 45 - 50 minutes. This is a note for the 8th and final session of the [facility] Program group. The patient was active in the participation of this group today. The topic for discussion was preventing relapse and continued motivation for weight loss. The patient was given a letter stating that he completed all of the eight group sessions. Mr. Luna weighed in today at 336.6 pounds. AM:phil D: 07-27-13 Mehreen Perez, CLINICAL AUDIOLOGIST T: 07-28-13 NESS LEADER documented in this encounter Plan of Treatment Not on filedocumented as of this encounter Visit Diagnoses Diagnosis Unspecified adjustment reaction - Primar y documented in this encounter
--- OUTSIDE RECORDS SUMMARY | 2022-08-12 09:36 | XMS_ITS | Encounter Summary ---
:1960 Author Organization [place] Address [address] [place] [address] Care Team Providers Name Role Phone Unavailable Primary Care Provider Unavailable Encounter Details Date Type Department Care Team Description 06/21/2013 Psyche [facility] [place] Unspecified adjustment System in [place] [facility] [place] reaction (Primary Dx) Psychology [address] [place] [address] [place] [address] [phone] Social History Tobacco Use Types Packs/Day Years Used Date Smoking Tobacco: Never Assessed Sex Assigned at Date Recorded Not on file documented as of this encounter Plan of Treatment Not on filedocumented as of this encounter Visit Diagnoses Diagnosis Unspecified adjustment reaction - Primar y documented in this encounter
--- OUTSIDE RECORDS SUMMARY | 2022-08-12 09:36 | XMS_ITS | Encounter Summary ---
:1960 Author Organization [place] Address [address] [place] [address] Care Team Providers Name Role Phone Ladan Song Primary Care Provider Yulisa Bernabe Unavailable Reason for Visit Reason Onset Date Comments Call Back 07/10/2016 Encounter Details Date Type Department Care Team Description 07/10/2016 Telephone [facility] Urology and Inst Yulisa Farah PA Call Back for Prostate and Urologic [facility] Urology Cancers [address] [address]88[address] [place], [place] [address] [place] [address] [address] [phone] Social History Tobacco Use Types Packs/Day Years [...] on filedocumented in this encounter Care Teams Geneticist Relationship Specialty Start Date End Date Ladan Song PCP - General 09/29/14 [facility] 9[address] [facility] [address] [place] [address] Yulisa Bernabe PA Physician Dairy Laboratory Technician Physician Dairy Laboratory Technician 03/16/[address] [place] [address] 394 [place], [place] [address] documented as of this encounter
--- OUTSIDE RECORDS SUMMARY | 2022-08-12 09:37 | XMS_ITS | Encounter Summary ---
:1960 Author Organization [facility] Address [address] [place] [address] Care Team Providers Name Role Phone Unavailable Primary Care Provider Unavailable Encounter Details Date Type Department Care Team Description 12/26/2009 Office Visit-[facility] INTERFACE [facility] DEPT Provider, [facility] Nurs e Social History Tobacco Use Types Packs/Day Years Used Date Smoking Tobacco: Never Assessed Sex Assigned at Date Recorded Not on file documented as of this encounter Progress Notes Provider, [facility] Nurse - 12/26/2009 1:40 PM CDT Dependency Director: Radha Morales Status: Signed Encounter: 26 [...] By: Radha Morales L.P.N.; 12/27/2009 10:54 AM LICENSED REAL ESTATE BROKER; Author. Provider, [facility] Nurse - 12/26/2009 1:40 PM CDT Dependency Director: Radha Morales Status: Final Encounter: 26 Dec 2009 Type: Rooming Note Reason For Visit New leakage and sd Do you have any other appointments, tests or procedures within the [facility] system for this same day? No. Pain [...] By: Radha Morales L.P.N.; 12/26/2009 1:30 PM LICENSED REAL ESTATE BROKER; Author. documented in this encounter Plan of Treatment Not on filedocumented as of this encounter Visit Diagnoses Not on filedocumented in this encounter
--- OUTSIDE RECORDS SUMMARY | 2022-08-12 09:37 | XMS_ITS | Encounter Summary ---
:1960 Author Organization [place] Address [facility] [place] [address] Care Team Providers Name Role Phone Unavailable Primary Care Provider Unavailable Encounter Details Date Type Department Care Team Description 12/26/2009 Historic Results [facility] Jarvis Heart MD [place] [address] [facility] [address] [place], [place] [address] [phone] Social History Tobacco Use Types Packs/Day Years [...]
--- OUTSIDE RECORDS SUMMARY | 2022-08-12 09:38 | XMS_ITS | Encounter Summary ---
:1960 Author Organization [facility] Address [address] [place] [address] Care Team Providers Name Role Phone Cintia Cobb MD Primary Care Provider [phone] Encounter Details Date Type Department Care Team Description 06/16/2022 Notes/Orders [facility] Cesar Champagen, [address] [place], [place] [address] [address] [address] [place] [address] (Gavi rk) Social History Tobacco [...] Description 09/15/2022 Appointment Orthopedics Delgado Gottlieb MD [address] [place] [phone] (Gavi rk) 10/08/2022 Appointment Orthopedics Delgado Gottlieb MD [address] [place] [phone] (Wo rk) 05/27/2023 Appointment Chemo Therapy/Infusion Services documented as of this encounter Visit Diagnoses Not on filedocumented in this encounter Care Teams Customer Development Representative Relationship Specialty Start Date End Date Cintia Cobb MD PCP - General Family Practice 09/30/21 documented as of this encounter
--- OUTSIDE RECORDS SUMMARY | 2022-08-12 09:38 | XMS_ITS | Clinical Summary ---
:1960 [facility] Address [address] [place] [address] Care Team Providers Name Role Phone Cintia Cobb MD Primary Care Provider [phone] Source Comments You are receiving this document [...] for each transition of care or referral. Hitpost Allergies Active Allergy Reactions Severity Noted Date [...] Added automatically from request for emiliano flo [id number] Encounters Date Type Specialty Care Team Description [...] enco unter 06/26/2022 Telephone Orthopedics Delgado Gottlieb QUESTIONSCHIDI MD 06/25/2022 Office Visit Orthopedics Delgado Gottlieb [...] MD Terri Request (Low ba ck pain) from Last 3 Months Social History Tobacco [...] 10/08/2022 Appointment Orthopedics Delgado Gottlieb MD [address] [place], [place] [address] (Wo rk) 05/27/2023 Appointment Chemo Therapy/Infusion Services Health [...] to pic Medical Devices Implanted Type Area Director Peoplesoft Device Shelf Model / Identifier Expiration Serial / Date Lot <Historic:?? [id number]-9/15/2017 <Histori [place] [employer] / Implanted: 01/19/2017 (Quantity not on file) c:?? Elect rophysiology [id number] / Cardiac- Rhythm Description: Reynaldo Vera Dr [id number] Pacemaker Implant ID:[id number] Pacemaker Leads are Medtronic. 5mm Locking Screw For Im Nails;80mm DEVICE Left: FEMUR DISTAL DePTriventus - 04.045.080 / Implanted: Qty: 1 on 10/01/2021 by Delgado Gotltieb MD at [facility] Trauma / Description: RFN ADVANCED RETROGRADE FEM ORAL NAIL SYSTEM Procedures Procedure Name Priority Date/Time Associated Diagnosis Comme nts XR KNEE LT 2 VIEWS Routine 08/04/2022 12:52 PM Closed fracture of Results for this PLASTIC SHEETS FINISHING SUPERVISOR distal end of left procedure are in [...] Knee Lt 2 Views (08/04/2022 12:52 PM PLASTIC SHEETS FINISHING SUPERVISOR)Only the most recent of2 results within the time period is included. Anatomical Region Laterality Modality Lower Extremity, Knee Computed Radiograp hy Specimen (Source) Anatomical Collection Method Collection Time Re ceived Time Location / / Volume Laterality 08/04/2022 12:52 PM PLASTIC SHEETS FINISHING SUPERVISOR Narrative 08/04/2022 6:53 PM PLASTIC SHEETS FINISHING SUPERVISOR EXAM: XR KNEE LT 2 VIEWS LOCATION: [facility] 435 DATE/TIME: 08/04/2022 12:52 PM INDICATION: Left [...] EXAM: XR KNEE LT 2 VIEWS LOCATION: [facility] 435 DATE/TIME: 08/04/2022 12:52 PM INDICATION: Left [...] CT KNEE LT WO IV CONT LOCATION: [place] [address] DATE/TIME: 06/25/2022 11:21 AM INDICATION: Tibial tubercle [...] fract ure. Hardware partially seen on the rn acute care images in the distal femur from lateral [...] fracture. Hardware parti ally seen on the rn acute care images in the distal femur from lateral [...] ss Type Group BCBS BCBS PMAP BLUE [id number] 2018-Present [address] [address] [place] [address] (Home) [place] [address] Laz Luna J Personal/Family Self 1960 [id number] (Home) [place] [address] Jeremy Ed J Personal/Family Self 1960 [id number] (Home) [place] [address] JEREMYED J Personal/Family Advance Directives Latest Code Status on File Code Status Date Activated Date Inactivated Comments Full Code 01/27/2022 2:04 PM 01/27/2022 8:57 PM Code Status History Code Status Date Activated Date Inactivated Comments Full Code 10/01/2021 8:29 AM 10/03/2021 5:59 PM Full Code 09/30/2021 9:42 PM 10/01/2021 8:29 AM Full Code 08/18/2017 4:40 PM 08/18/2017 8:44 PM Care Teams Fuel Oil Clerk Relationship Specialty Start Date End Date Cintia Cobb MD PCP - General Family Practice 09/30/21
--- OUTSIDE RECORDS SUMMARY | 2022-08-12 09:38 | XMS_ITS | Encounter Summary ---
:1960 Author Organization [facility] Address [address] [place] [address] Care Team Providers Name Role Phone Cintia Cobb MD Primary Care Provider [phone] Reason for Visit Reason Comments QUESTIONS, GENERAL Encounter Details Date Type Department Care Team Description 06/16/2022 Telephone Specialty Center [address] Delgado Gottlieb MD QUESTIONS, GENERAL Orthopedics Clinic [address] [place] [address] [place] [address] [phone] Social History Tobacco Use Types Packs/Day Years [...] Called and spoke with Xiao at [facility] and requested images be pushed to PACS. Patient called and notified of the information from Dr Gottlieb. He was transferred through to [facility]. Rosetta Ye RN 06/23/2022, 10:05 AM Rosetta Ye RN - 06/23/2022 9:06 AM CDT Patient is calling back stating I think I broke my leg. He states that he fell Thursday morning at7:30. He states he felt and heard something snap. He states he landed on his knee cap. He states he was brought by ambulance to [place] and they did imaging, but did not [...] Ye RN - 06/19/2022 3:07 PM CDT [facility] at [phone] and follow the prompt for [facility] and [...] Ye RN 06/17/2022, 9:11 AM TR at [phone] and follow the prompt for [facility] and ask to speak with one of the nurses. Rosetta Ye RN 06/17/2022, 9:19 AM Rosetta Lee RN - 06/17/2022 8:26 AM CDT [facility] at [phone] and follow the prompt for [facility] and ask to speak with one of the nurses. Rosetta eY RN 06/17/2022, 8:27 AM Britany Lopez - [...] 09/15/2022 Appointment Orthopedics Delgado Gottlieb MD [address] [place] [phone] (Wo rk) 10/08/2022 Appointment Orthopedics Delgado Gottlieb MD [address] [place] [phone] (Wo rk) 05/27/2023 Appointment Chemo Therapy/Infusion Services documented as of this encounter Visit Diagnoses Not on filedocumented in this encounter Care Teams Transportation Lead Relationship Specialty Start Date End Date Cintia Cobb MD PCP - General Family Practice 09/30/21 documented as of this encounter
--- OUTSIDE RECORDS SUMMARY | 2022-08-12 09:38 | XMS_ITS | Encounter Summary ---
:1960 Author Organization [facility] Address [address], [place] [address] Care Team Providers Name Role Phone Cintia Cobb MD Primary Care Provider [phone] Reason for Visit Reason Comments QUESTIONS, GENERAL Infusion Appointment Encounter Details Date Type Department Care Team Description 04/30/2022 Telephone [facility] Delmer Valladares, TONI [facility] PAJenifer (Infusion Appointment) [address] [place] [address] [place] [address] [address] [place], [place] [phone] (Wo rk) Social History Tobacco Use Types [...] - 05/01/2022 1:09 PM CDT Referral to [facility] for Reclast infusion in chart. Left message for patient via that he can call [facility] clinic to get scheduled. [phone]. Amanda Damon - 04/30/2022 3:51 PM CDT Has the patient recently had surgery or an injury? No Patient is calling back regarding his referral to the infusion center. He has never been contacted to schedule the appointment and would like to make sure the referral went through. He would prefer to be seen in the [facility] but will go to the [facility]. Patient [...] Description 09/15/2022 Appointment Orthopedics Delgado Gottlieb MD [address] [place] [phone] (Gavi presley) 10/08/2022 Appointment Orthopedics Delgado Gottlieb MD [address] [place] [phone] (Gavi presley) 05/27/2023 Appointment Chemo Therapy/Infusion Services documented as of this encounter Visit Diagnoses Not on filedocumented in this encounter Care Teams Footwear Production Machine Operator Relationship Specialty Start Date End Date Cintia Cobb MD PCP - General Family Practice 09/30/21 documented as of this encounter
--- OUTSIDE RECORDS SUMMARY | 2022-08-12 09:38 | XMS_ITS | Encounter Summary ---
:1960 Author Organization [email or web address] Address [address], [place] [address] Care Team Providers Name Role Phone Cintia Cobb MD Primary Care Provider [phone] Reason for Referral Procedure/Equipment (Routine) - Incomplete Specialty Diagnoses / Procedures Referred By Contact Refer red To Contact Diagnoses Closed fracture of distal end of left femur with routine healing, unspecified fracture morphology, subsequent encounter Delgado Gottlieb MD Procedures XR Knee Lt [address] [place] [address] Referral ID Status Reason Start Date Expiration Date Visits V isits Requested Authorized [id number] Incomplete 07/07/2022 10/06/2023 1 1 Reason for Visit Reason Comments FOLLOW-UP,FRACTURE Encounter Details Date Type Department Care Team Description 07/07/2022 Office Visit Specialty Center Delgado Gottlieb, Domenica sed fracture of [address] [facility] ic distal end of left [address] [place] [place] [address] [place], [place] healing, unspecified [phone] fracture morphology, subsequent enco unter (Work) [...] 1:20 PM CDT ORTHOPAEDICS DEPARTMENT PHONE NUMBER: [phone] Reason for today's visit: Non displaced tibial [...] TIME PROVIDER LOCATION APPT NOTES ( ) [facility]: [address] [place] [address] ( ) [facility]: [address] [place] [address] ( ) Other: F/u Non displaced tibial plateau fracture. Pressure sore. ( ) [facility]: [address] [place] [address] ( ) [address] ( ) Other: If you have any questions about your visit, your symptoms, your medication, your test results or it is not clear what your diagnosis or treatment plan is please contact us at [phone] or send us a secure message via [employer]. You may receive surveys via mail, e-mail or text regarding your visit and recovery. Your feedback isvery important to us. Please take a moment to complete them. If you would like to speak to someone specifically, you may contact the clinic at [phone] and your call will be directed to someone on our leadership team. Thank you for choosing [facility]. If you need to schedule an appointment, you may call our office at [phone]. We are open Thursday-Thursday 8 am - [...] such as a splint or brace. 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 Therefore he will continue with his prior pain control regimen which was primarily [id number] medication, ice, and elevation. If he does figure out a way to picker tender medication at a pharmacy and would like [...] contain unintended word substitutions. Delgado Gottlieb MD Anchor Tacker [facility] Department of Orthopaedic Surgery [facility] documented in this encounter Plan of Treatment Upcoming Encounters Date Type Specialty Care Team Description 09/15/2022 Appointment Orthopedics Delgado Gottlieb MD [address] [place] [address] (Gavi presley) 10/08/2022 Appointment Orthopedics Delgado Gottlieb MD [address] [place] [address] (Gavi presley) 05/27/2023 Appointment Chemo [...] EXAM: XR KNEE LT 2 VIEWS LOCATION: [facility] 435 DATE/TIME: 07/07/2022 12:47 PM INDICATION: [...] r documented in this encounter Care Teams Sports Instructor Relationship Specialty Start Date End Date Cintia Cobb MD PCP - General Family Practice 09/30/21 documented as of this encounter
--- OUTSIDE RECORDS SUMMARY | 2022-08-12 09:38 | XMS_ITS | Encounter Summary ---
:1960 Author Organization [facility] Address [address] [place] [address] Care Team Providers Name Role Phone Cintia Cobb MD Primary Care Provider [phone] Reason for Visit Procedure/Equipment (Routine) - Incomplete Specialty Diagnoses / Procedures Referred By Contact Refer red To Contact Diagnoses Closed fracture of distal end of left femur with routine healing, unspecified fracture morphology, subsequent encounter Delgado Gottlieb MD Procedures XR Femur Lt [address] [place] [address] Referral ID Status Reason Start Date Expiration Date Visits V isits Requested Authorized [id number] Incomplete 04/02/2022 07/02/2023 1 1 Encounter Details Date Type Department Care Team Description 04/02/2022 [facility]illary [facility] Closed frac ture of Procedure Specialty Center Donnell Murray MD distal end of left Radiology [address] femur with routine [address] healing, [place] [address] [place], [place] unspecified [phone] fracture [phone] morphology, (Work) subsequent [phone] encounter (Fax) Social History Tobacco Use Types [...] 09/15/2022 Appointment Orthopedics Delgado Gottlieb MD [address] [place], [place] [address] (Wo rk) 10/08/2022 Appointment Orthopedics Delgado Gottlieb MD [address] [place], [place] [address] (Wo rk) 05/27/2023 Appointment [...] EXAM: XR FEMUR LT 2 VIEWS LOCATION: [facility] 435 DATE/TIME: 04/02/2022 7:48 AM INDICATION: Open reduction internal fixa tion of left supracondylar distal femur fracture COMPARISON: 11/27/2021 IMPRESSION: ORIF of a distal left femur fracture. No interval hardware complication. Progressive incomplete healing. Procedure Note Sebas Thompson MD - 04/02/2022Formatti ng of this note might be different from the original. EXAM: XR FEMUR LT 2 VIEWS LOCATION: [facility] 435 DATE/TIME: 04/02/2022 7:48 AM [...] r documented in this encounter Care Teams Vice President Regulatory Relationship Specialty Start Date End Date Cintia Cobb MD PCP - General Family Practice 09/30/21 documented as of this encounter
--- OUTSIDE RECORDS SUMMARY | 2022-08-12 09:38 | XMS_ITS | Encounter Summary ---
:1960 Author Organization [facility] Address [address], [place] [address] Care Team Providers Name Role Phone Cintia Cobb MD Primary Care Provider [phone] Reason for Referral Procedure/Equipment (Routine) - Incomplete Specialty Diagnoses / Procedures Referred By Contact Refer red To Contact Diagnoses Pain of left lower leg Delgado Gottlieb MD Procedures US VENOUS LEFT LOWER EXTREM DOPPLER [address] [place] [address] Referral ID Status Reason Start Date Expiration Date Visits V isits Requested Authorized [id number] Incomplete 06/30/2022 09/29/2023 1 1 Reason for Visit Reason Comments QUESTIONS, GENERAL Encounter Details Date Type Department Care Team Description 06/26/2022 Telephone Specialty Center [address] Delgado Gottlieb MD QUESTIONS, GENERAL Orthopedics Clinic [address] [facility] [address] [facility] [place] [address] [place] [address] [phone] Social History Tobacco Use Types Packs/Day Years [...] stay. 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 Unfortunately, as Rosetta told the [...] to be emailed to his home at [email or web address] [email or web address] He was informed that we do not sendletters via email as we do not have a secure portal on our end. He was advised to set up a Near[employer] account and we could get him some help to do so. He states that he does not know how to set up a [employer] account and does not want all the [...] Rosetta is not in until later today, Battery [employer]sembler [employer] did reach out to see if we could help with any questions. Left message for pt to call back at [phone] and press the option for [facility]. [...] states that they never called him to [facility]. He was informed that he can call [...] results. Patient has not had it done. [facility] at [phone] and follow the prompt for [facility] and [...] stating that it should be faxed to [phone]. He states I can't read my own [...] is needing the order faxed to [facility] at [phone]. Order has been faxed as requested. Rosetta [...] closer to him or come to the community hospital. He states he has enough other medication [...] AM CDT [place]. Patient is stating that his pain is [...] 09/15/2022 Appointment Orthopedics Delgado Gottlieb MD [address] [place], [place] [address] (Wo rk) 10/08/2022 Appointment Orthopedics Delgado Gottlieb MD [address] [place], [place] [address] (Wo rk) 05/27/2023 [...] limb documented in this encounter Care Teams Quality Process Engineer Relationship Specialty Start Date End Date Cintia Cobb MD PCP - General Family Practice 09/30/21 documented as of this encounter
--- OUTSIDE RECORDS SUMMARY | 2022-08-12 09:38 | XMS_ITS | Encounter Summary ---
:1960 Author Organization [facility] Address [address], [place] [address] Care Team Providers Name Role Phone Cintia Cobb MD Primary Care Provider [phone] Reason for Referral Procedure/Equipment (Routine) - Incomplete Specialty Diagnoses / Procedures Referred By Contact Refer red To Contact Diagnoses Closed fracture of distal end of left femur with routine healing, unspecified fracture morphology, subsequent encounter Delgado Gottlieb MD Procedures XR Femur Lt [address] [place] [address] Referral ID Status Reason Start Date Expiration Date Visits V isits Requested Authorized [id number] Incomplete 04/02/2022 07/02/2023 1 1 Reason for Visit Reason Comments KNEE PAIN Encounter Details Date Type Department Care Team Description 04/02/2022 Office Visit Specialty Center Delgado Gottlieb, Domenica sed fracture of [address] Orth[facility]ics Clin ic distal end of left [address] [place] [address] [place], [place] healing, unspecified [phone] fracture morphology, subsequent enco unter (Work) [...] 7:40 AM CDT ORTHOPAEDICS DEPARTMENT PHONE NUMBER: [phone] Reason for today's visit: Open reduction internal fixation of left supracondylar distal femur fracture, utilizing both plate and nail fixation. DOS 10/01/2021 Treatment plan: Weight bearing and activities as tolerated If you continue to have pain over the location of the screw tips at the next visit, we may get a CT scan to see what screws are prominent and guide further treatment. [facility]: [phone] Follow up appointments: You will follow up with Dr. Delgado Gottlieb in 6 month(s). X-Rays: You will have left femur X-Rays taken with your next Orthopaedics appointment. Please flaxzb31 minutes early for your appointment. Reason for next Orthopaedics appointment: Open reduction internal fixation of left supracondylar distal femur fracture, utilizing both plate and nail fixation. DOS 10/01/2021 Please stop at the check out desk to schedule a follow up appointment. Use this grid to write down your next appointment. DATE & TIME PROVIDER LOCATION APPT NOTES ( ) [facility]: [address] [place] [address] ( ) [facility]: [address] [place] [address] ( ) Other: Open reduction internal fixation of left supracondylar distal femur fracture, utilizing both plate and nail fixation. DOS 10/01/2021 ( ) [facility]: [address] [place] [address] ( ) [facility] [address], [place] ( ) Other: If you have any questions about your visit, your symptoms, your medication, your test results or it is not clear what your diagnosis or treatment plan is please contact us at [phone] or send us a secure message via [employer]. You may receive surveys via mail, e-mail or text regarding your visit and recovery. Your feedback isvery important to us. Please take a moment to complete them. If you would like to speak to someone specifically, you may contact the clinic at [phone] and your call will be directed to someone on our leadership team. Thank you for choosing Delgado Gottlieb MD and [facility]. If you need to schedule an appointment, you may call our office at [phone]. We are open Thursday-Thursday 8 am - [...] cut. 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 He is still in physical therapy but this is now more focused on his lower back as he had a surgery on this in January. 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 Delgado Gottlieb MD Pharmacists [facility] Department of Orthopaedic Surgery [facility] documented in this encounter Plan of Treatment Upcoming Encounters Date Type Specialty Care Team Description 09/15/2022 Appointment Orthopedics Delgado Gottlieb MD [address] [place], [place] [address] (Gavi presley) 10/08/2022 Appointment Orthopedics Delgado Gottlieb MD [address] [place], [place] [address] (Gavi presley) 05/27/2023 Appointment [...] EXAM: XR FEMUR LT 2 VIEWS LOCATION: [facility] 435 DATE/TIME: 04/02/2022 7:48 AM INDICATION: Open reduction internal fixa tion of left supracondylar distal femur fracture COMPARISON: 11/27/2021 IMPRESSION: ORIF of a distal left femur fracture. No interval hardware complication. Progressive incomplete healing. Procedure Note Sebas Thompson MD - 04/02/2022Formatti ng of this note might be different from the original. EXAM: XR FEMUR LT 2 VIEWS LOCATION: [facility] 435 DATE/TIME: 04/02/2022 7:48 AM INDICATION: Open [...] r documented in this encounter Care Teams Intellectual Property Paralegal Relationship Specialty Start Date End Date Cintia Cobb MD PCP - General Family Practice 09/30/21 documented as of this encounter
--- OUTSIDE RECORDS SUMMARY | 2022-08-12 09:38 | XMS_ITS | Encounter Summary ---
:1960 Author Organization [facility] Address [address], [place] [address] Care Team Providers Name Role Phone Cintia Cobb MD Primary Care Provider [phone] Reason for Visit Reason Comments QUESTIONS, GENERAL Encounter Details Date Type Department Care Team Description 06/17/2022 Telephone [facility] NANI Cesar Champagne, QUESTIONS, GENERAL [address] [place], [place] [address] [address] [phone] [place] [phone] (Wo rk) Social History Tobacco Use [...] for a call back. Would not give loan underwriter any information regarding why he is calling only states that he needs to speak with Nathalia and it is an emergency. documented in this encounter Plan of Treatment Upcoming Encounters Date Type Specialty Care Team Description 09/15/2022 Appointment Orthopedics Delgado Gottlieb MD [address] [place] [phone] (Gavi presley) 10/08/2022 Appointment Orthopedics Delgado Gottlieb MD [address] [place], [place] [address] (Gavi presley) 05/27/2023 Appointment Chemo Therapy/Infusion Services documented as of this encounter Visit Diagnoses Not on filedocumented in this encounter Care Teams Packer Sausage And Wiener Relationship Specialty Start Date End Date Cintia Cobb MD PCP - General Family Practice 09/30/21 documented as of this encounter
--- OUTSIDE RECORDS SUMMARY | 2022-08-12 09:38 | XMS_ITS | Encounter Summary ---
:1960 Author Organization [facility] Address [address] [place] [address] Care Team Providers Name Role Phone Cintia Cobb MD Primary Care Provider [phone] Reason for Referral Therapies (Routine) - New Request Specialty Diagnoses / Procedures Referred By Contact Refer red To Contact Diagnoses Closed nondisplaced fracture of left tibial plateau with routine healing, subsequent encounter Delgado Gottlibe MD [address] [place] [id number] Referral ID Status Reason Start Date Expiration Date Visits V isits Requested Authorized [id number] New Request 08/04/2022 08/04/2023 1 1 Scheduling [...] ask your clinician's staff to assist you. RAL OPHTHALMOLOGIST Procedure/Equipment (Routine) - Incomplete Specialty Diagnoses / Procedures Referred By Contact Refer red To Contact Diagnoses Closed nondisplaced fracture of left tibial plateau with routine healing, subsequent encounter Delgado Gottlieb MD Procedures XR Knee Lt 2 Views [address] [place] [address] Referral ID Status Reason Start Date Expiration Date Visits V isits Requested Authorized [id number] Incomplete 08/04/2022 11/03/2023 1 1 RAL OPHTHALMOLOGIST Reason for Visit Reason Comments FOLLOW-UP,FRACTURE Encounter [...] encounter [address] [place] [address] [place], [place] [phone] Social History Tobacco Use Types Packs/Day Years [...] 1:00 PM CST ORTHOPAEDICS DEPARTMENT PHONE NUMBER: [phone] Reason for today's visit: FOLLOW-UP,FRACTURE Treatment plan: [...] NOTES ( ) [facility]: [address] [place], [place] ( ) [facility]: [address] [place], [place] ( ) Other: Follow up left tibial plateau fracture DOI: 06/21/2022 ( ) [facility]: [address] [place] [address] ( ) [facility] [address] [place], [place] ( ) Other: If you have any questions about your visit, your symptoms, your medication, your test results or it is not clear what your diagnosis or treatment plan is please contact us at [phone] or send us a secure message via [employer]. You may receive a survey in the mail regarding your visit today. Your feedback is very important to us, please take a moment to complete the survey which is completely anonymous. If you would like to speak to someone specifically, you may contact the clinic at [phone] and your call will be directed to [...] and you will be connected to a motor vehicle field representative who can assist you with your appointment scheduling needs. RAL OPHTHALMOLOGIST documented in this encounter Progress Notes Delgado [...] seem to be shrinking in size. 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 Delgado Gottlieb MD Electrical Accessories Ii Assembler [facility] Department of Orthopaedic Surgery [facility] RAL OPHTHALMOLOGIST documented in this encounter Plan of Treatment Upcoming Encounters Date Type Specialty Care Team Description 09/15/2022 Appointment Orthopedics Delgado Gottlieb MD [address] [place] [phone] (Gavi presley) 10/08/2022 Appointment Orthopedics Delgado Gottlieb MD [address] [place] [phone] (Gavi presley) 05/27/2023 Appointment Chemo Therapy/Infusion Services Scheduled Referrals Name Type Priority Associated Diagnoses Order S chedule Physical Therapy - Referral Routine Closed nondisplaced Or dered: 08/04/2022 Ortho [[id number]] fracture of left tibial plateau with routine healing, subsequent encounter documented as of this encounter Results XR Knee Lt 2 Views (08/04/2022 12:52 PM GENERAL OPHTHALMOLOGIST) Anatomical Region Laterality Modality Lower Extremity, Knee Computed Radiograp hy Specimen (Source) Anatomical Collection Method Collection Time Re ceived Time Location / / Volume Laterality 08/04/2022 12:52 PM GENERAL OPHTHALMOLOGIST Narrative 08/04/2022 6:53 PM GENERAL OPHTHALMOLOGIST EXAM: XR KNEE LT 2 VIEWS LOCATION: [place] [address] DATE/TIME: 08/04/2022 12:52 PM INDICATION: Left distal [...] EXAM: XR KNEE LT 2 VIEWS LOCATION: [facility] [address] DATE/TIME: 08/04/2022 12:52 PM INDICATION: Left [...] r documented in this encounter Care Teams Steam Fitter Supervisor Relationship Specialty Start Date End Date Cintia Cobb MD PCP - General Family Practice 09/30/21 documented as of this encounter
--- OUTSIDE RECORDS SUMMARY | 2022-08-12 09:38 | XMS_ITS | Encounter Summary ---
:1960 Author Organization [facility] Address [address] [place] [address] Care Team Providers Name Role Phone Cintia Cobb MD Primary Care Provider [phone] Reason for Visit Procedure/Equipment (Routine) - Incomplete Specialty Diagnoses / Procedures Referred By Contact Refer red To Contact Diagnoses Closed nondisplaced fracture of left tibial plateau with routine healing, subsequent encounter Delgado Gottlieb MD Procedures XR Knee Lt [address] [place] [address] Referral ID Status Reason Start Date Expiration Date Visits V isits Requested Authorized [id number] Incomplete 08/04/2022 11/03/2023 1 1 Encounter Details Date Type Department Care Team Description 08/04/2022 [facility] Closed frac ture of Procedure Specialty Center Donnell Murray MD distal end of left Radiology [address] femur with routine [address] healing, [place] [address] [place], [place] unspecified [phone] fracture [phone] morphology, (Work) subsequent [phone] encounter (Fax) Social History Tobacco Use Types [...] 09/15/2022 Appointment Orthopedics Delgado Gottlieb MD [address] [place], [place] [address] (Wo rk) 10/08/2022 Appointment Orthopedics Delgado Gottlieb MD [address] [place], [place] [address] (Wo rk) 05/27/2023 Appointment Chemo Therapy/Infusion Services documented as of this encounter Procedures Procedure Name Priority Date/Time Associated Diagnosis Comme nts XR KNEE LT 2 VIEWS Routine 08/04/2022 12:52 PM Closed fracture of Results for this EXPRESSIVE MUSIC THERAPIST distal end of left procedure are in femur with routine the resul ts healing, unspecified section . fracture morphology, subsequent encounter documented in this encounter Results XR Knee Lt 2 Views (08/04/2022 12:52 PM EXPRESSIVE MUSIC THERAPIST) Anatomical Region Laterality Modality Lower Extremity, Knee Computed Radiograp hy Specimen (Source) Anatomical Collection Method Collection Time Re ceived Time Location / / Volume Laterality 08/04/2022 12:52 PM EXPRESSIVE MUSIC THERAPIST Narrative 08/04/2022 6:53 PM EXPRESSIVE MUSIC THERAPIST EXAM: XR KNEE LT 2 VIEWS LOCATION: [facility] [address] DATE/TIME: 08/04/2022 12:52 PM INDICATION: [...] EXAM: XR KNEE LT 2 VIEWS LOCATION: [facility] [address] DATE/TIME: 08/04/2022 12:52 PM INDICATION: [...] r documented in this encounter Care Teams Asic Engineer Relationship Specialty Start Date End Date Cintia Cobb MD PCP - General Family Practice 09/30/21 documented as of this encounter
--- OUTSIDE RECORDS SUMMARY | 2022-08-12 09:38 | XMS_ITS | Encounter Summary ---
:1960 Author Organization [facility] Address [address] [facility] [place] [address] Care Team Providers Name Role Phone Cintia Cobb MD Primary Care Provider [phone] Reason for Visit Reason Comments Nurse Return Call Request Requesting to speak with RN Encounter Details Date Type Department Care Team Description 07/22/2022 Telephone [facility] Delmer Valladares, Nurse Return Call [facility] Request (Requesting to [address] [place] [address] Dr speak with RN) [place], [place] [address] [place], [place] [phone] (Wo rk) Social History Tobacco Use Types [...] could consider it in the future. Delmer RCELL CONNECTOR PLACER Loly Kelley RN - 07/23/2022 9:14 AM [...] healing? Sending to Delmer to further advise RCELL CONNECTOR PLACER Nancy Herrera - 07/22/2022 2:29 PM CST [...] you been seen for this recently?: n/a [Acid Purification Equipment Operator/Appt Center: If yes, please include date and provider.] Is it okay to leave detailed message on your voicemail? No voicemail set up per patient. Please callpatient's mobile at [phone] per request. [Acid Purification Equipment Operator/Appt Center: If this call is after 3 p.m., communicate to patient: If we are not able to get back to you by the end of the day and your symptoms worsen please contact the Careline] RCELL CONNECTOR PLACER documented in this encounter Plan of Treatment Upcoming Encounters Date Type Specialty Care Team Description 09/15/2022 Appointment Orthopedics Delgado Gottlieb MD [address] [place], [place] [address] (Wo rk) 10/08/2022 Appointment Orthopedics Delgado Gottlieb MD [address] [place], [place] [address] (Wo rk) 05/27/2023 Appointment Chemo Therapy/Infusion Services documented as of this encounter Visit Diagnoses Not on filedocumented in this encounter Care Teams Special Education Professional Relationship Specialty Start Date End Date Cintia Cobb MD PCP - General Family Practice 09/30/21 documented as of this encounter
--- OUTSIDE RECORDS SUMMARY | 2022-08-12 09:38 | XMS_ITS | Encounter Summary ---
:1960 Author Organization [facility] Address [address] [place] [address] Care Team Providers Name Role Phone Cintia Cobb MD Primary Care Provider [phone] Reason for Visit Reason Comments PAIN, NOS Encounter Details Date Type Department Care Team Description 06/23/2022 Telephone Specialty Center [address] Delgado Gottlieb MD PAIN, NOS Orthopedics Clinic [address] [place] [address] [place] [address] [phone] Social History Tobacco Use Types Packs/Day Years [...] the weekend. He is had fell in [place]. He was not able to walk or [...] Description 09/15/2022 Appointment Orthopedics Delgado Gottlieb MD [address] [place] [phone] (Gavi presley) 10/08/2022 Appointment Orthopedics Delgado Gottlieb MD [address] [place], [place] [address] (Gavi presley) 05/27/2023 Appointment Chemo Therapy/Infusion Services documented as of this encounter Visit Diagnoses Not on filedocumented in this encounter Care Teams Cut Out Worker Relationship Specialty Start Date End Date Cintia Cobb MD PCP - General Family Practice 09/30/21 documented as of this encounter
--- OUTSIDE RECORDS SUMMARY | 2022-08-12 09:38 | XMS_ITS | Encounter Summary ---
:1960 Author Organization [facility] Address [address], [place] [address] Care Team Providers Name Role Phone Cintia Cobb MD Primary Care Provider [phone] Reason for Visit Reason Comments Refill Encounter Details Date Type Department Care Team Description 05/10/2022 Refill [facility] ANNI Ita Alvarez PA-C Refill [address] [place], [place] [address] [place] [address] [phone] (Wo rk) Social History Tobacco Use Types [...] 09/15/2022 Appointment Orthopedics Delgado Gottlieb MD [address] [place], [place] [address] (Wo rk) 10/08/2022 Appointment Orthopedics Delgado Gottlieb MD [address] [place] [address] (Wo rk) 05/27/2023 Appointment Chemo Therapy/Infusion Services documented as of this encounter Visit Diagnoses Not on filedocumented in this encounter Care Teams Orthopedic Physical Therapist Relationship Specialty Start Date End Date Cintia Cobb MD PCP - General Family Practice 09/30/21 documented as of this encounter
--- OUTSIDE RECORDS SUMMARY | 2022-08-12 09:38 | XMS_ITS | Clinical Summary ---
:1960 Author Organization [employer] [place] [address] Care Team Providers Name Role Phone Meghna [...] Active (ZYLOPRIM) 300 mg tablet tablet omeprazole omeprazole 20 mg 0 Ac tive (PRILOSEC) 20 mg capsule,delayed Delayed-Release release capsule traZODone (DESYREL) TAKE 1-2 TABLETS 0 07/15/2021 Active 50 mg tablet (50-100 MG TOTAL) BY MOUTH AT BEDTIME NEEDED FOR SLEEP. tamsulosin (FLOMAX) tamsulosin 0.4 mg 0 Active 0.4 mg capsule capsule finasteride Take 5 mg by mouth 0 05/16/2022 Active (PROSCAR) 5 mg once daily. tablet cyclobenzaprine TAKE 1 TABLET (10 0 05/14/2022 [...] with a meal. Anemia of unknown etiology trospium 60 mg Take 1 Capsule (60 90 Capsule 0 08/11/2022 Active Extended-Release mg) by mouth once capsuleIndications: daily before a meal. Benign prostatic hyperplasia (BPH) with post-void dribbling cephalexin (Keflex) Take 1 Capsule (500 30 Capsule 0 2 Active 500 mg mg) by mouth three 2 capsuleIndications: times daily for 10 Acute UTI days. Active Problems Problem Noted Date Age-related osteoporosis without current pathological fracture 06/05/2022 Elevated blood pressure reading without diagnosis of h ypertension 06/05/2022 Benign prostatic hyperplasia (BPH) with post-void drib crow 06/05/2022 Anemia of unknown etiology 06/05/2022 Encounters Date Type Specialty Care Team Description 08/11/2022 Office Visit Daniella Estrada PA Consu lt (BPH with post void dribbling) 08/11/2022 Travel 06/09/2022 Telephone Meghna Fox DO Concern s (Constipation) 06/05/2022 Telephone Meghna Fox DO Results 06/04/2022 Telephone Meghna Fox DO Results 06/03/2022 Office Visit Meghna Fox DO Physica l (61 yr old male [...] Assigned at Date Recorded Not on file COVID-19 Exposure Response Date Recorded In the last 10 days, have you been in contact with No / Unsu re 08/11/2022 8:02 AM INSTRUMENT REPAIRER someone who was confirmed or suspected to have Coronavirus/COVID-19? Obstetrics History Last Filed Vital Signs Vital Sign Reading Time Taken Comments Blood Pressure 153/68 06/03/2022 7:58 AM CDT Pulse 100 08/11/2022 8:19 AM INSTRUMENT REPAIRER Temperature - - Respiratory Rate - - Oxygen Saturation 98% 08/11/2022 8:19 AM INSTRUMENT REPAIRER Inhaled Oxygen Concentration - - Weight - - Height 177.5 cm (5' 9.88) 06/03/2022 7:58 AM CDT Body Mass Index - - Plan of Treatment Upcoming Encounters Date Type Specialty Care Team Description 09/22/2022 Office Visit Daniella Estrada, SAMIRA [address] [phone] (Wo rk) Health Maintenance Due Date [...] Name Priority Date/Time Associated Diagnosis Comme nts URINALYSIS Routine 08/11/2022 8:00 AM Benign prostatic Resul ts for this MICROSCOPIC INSTRUMENT REPAIRER hyperplasia (BPH) procedure are in with post-void the results dribbling section. UA W/ SEDIMENT EXAM Routine 08/11/2022 8:00 AM Benign prostati c Results for this REFLEXED PER INSTRUMENT REPAIRER hyperplasia (BPH) procedure are in CRITERIA with post-void the results dribbling section. PLATELET ESTIMATE Routine 06/03/2022 10:08 History of [...] Dysuria from Last 3 Months Results (ABNORMAL) URINALYSIS MICROSCOPIC (08/11/2022 8:00 AM INSTRUMENT REPAIRER)Only the most recent of2 resultswithin the time period is included. [facility] Method Time Signature RBC None Seen 0-2, None 08/11/2022 [facility] Seen /HPF 9:43 AM INSTRUMENT REPAIRER [facility] WBC 11-25 (A) 0-2, 3-5, 08/11/[address] [facility] None Seen 9:43 AM INSTRUMENT REPAIRER [facility] BACTERIA Many (A) None 08/11/2022 [facility] Seen, 9:43 AM INSTRUMENT REPAIRER [place] Rare, Few [facility] Bacteria/ [facility] EPITHELIAL Moderate (A) None 08/11/2022 [facility] CELLS Seen, Few 9:43 AM INSTRUMENT REPAIRER [place] Specimen Anatomical Collection Method Collection Time Receive d Time (Source) Location / / Volume Laterality Urine URINE SPECIMEN / Non-Blood / 08/11/2022 8:00 AM 08/11 9:14 Unknown Unknown INSTRUMENT REPAIRER AM INSTRUMENT REPAIRER Daniella HOGAN URINE Performing Organization Address City/State/ZIP Code Phon e Number [facility] [address] [place] [address] [facility] (ABNORMAL) UA W/ SEDIMENT EXAM REFLEXED PER CRITERIA (08/11/2022 8:00 AM [facility]) Only the most recent of2 resultswithin the time period is included. [facility] Method Time Signature COLOR Yellow Yellow Color 08/11/2022 [facility] 9:39 AM [facility] CLARITY Clear Clear 08/11/2022 [facility] Clarity 9:39 AM [facility] SPECIFIC >=1.030 (A) 1.010, 08/11/2022 [facility] GRAVITY,URINE 1.015, 9:39 AM [facility] 1.020, 1.025 [facility] PH,URINE 5.5 6.0, 7.0, 08/11/2022 [facility] 8.0, 5.5, 9:39 AM [facility] 6.5, 7.5, [facility] 8.5 [facility] UROBILINOGEN, Normal Normal EU/dl 08/11/2022 [facility] QUALITATIVE 9:39 AM [facility] PROTEIN, 100 (A) Negative 08/11/2022 [facility] URINE mg/dL 9:39 AM [facility] GLUCOSE, Negative Negative 08/11/2022 [facility] URINE mg/dL 9:39 AM [facility] KETONES,URINE Trace (A) Negative 08/11/2022 [facility] mg/dL 9:39 AM [facility] BILIRUBIN,URI Negative Negative 08/11/2022 [facility] NE 9:39 AM [facility] OCCULT Negative Negative 08/11/2022 [facility] BLOOD,URINE 9:39 AM [facility] NITRITE Positive (A) Negative 08/11/2022 [facility] 9:39 AM [facility] LEUKOCYTE Small (A) Negative 08/11/2022 [facility] ESTERASE 9:39 AM [facility] Specimen Anatomical Collection Method Collection Time Receive d Time (Source) Location / / Volume Laterality Urine URINE SPECIMEN / Non-Blood / 08/11/2022 8:00 AM 08/11 9:14 Unknown Unknown INSTRUMENT REPAIRER AM INSTRUMENT REPAIRER Daniella HOGAN URINE Performing Organization Address City/State/ZIP Code Phon e Number [facility] [address] [place] [address] [facility] (ABNORMAL) RED CELL MORPHOLOGY (06/03/2022 10:08 AM CDT) [facility] Method Time Signature ELLIPTOCYTES Few 06/03/2022 [facility] 11:22 AM [facility] POLYCHROMASIA Slight 06/03/2022 [facility] 11:22 AM [facility] RBC COMMENT Present (A) RBC 06/03/2022 [facility] morphology 11:22 AM [facility] normal, RBC morphology within normal limits for newborns. Specimen Anatomical Collection Method Collection Time Receive d Time (Source) Location / / Volume Laterality Blood BLOOD SPECIMEN / Butterfly / 06/03/2022 10:08 022 Unknown Unknown AM CDT 10:11 AM CDT Meghna Fox DO HEMATOLOGY Performing Organization Address City/State/ZIP Code Phon e Number [facility] [address] [place], [place] [id number] PLATELET ESTIMATE (06/03/2022 10:08 AM CDT) [facility] Method Time Signature PLATELET Adequate Adequate, No 06/03/2022 [facility] ESTIMATE estimate 11:22 AM [facility] Specimen Anatomical Collection Method Collection Time Receive d Time (Source) Location / / Volume Laterality Blood BLOOD SPECIMEN / Butterfly / 06/03/2022 10:08 022 Unknown Unknown AM CDT 10:11 AM CDT Meghna Fox DO HEMATOLOGY Performing Organization Address City/State/ZIP Code Phon e Number [facility] [address] [place] [address] (ABNORMAL) CBC W PLT NO DIFF (06/03/2022 10:08 AM CDT) [facility] Method Time Signature WHITE BLOOD 6.2 4.5 - 11.0 06/03/2022 [facility] COUNT thou/cu mm 11:22 AM [facility] RED BLOOD COUNT 3.57 (L) 4.30 - 06/03/2022 [facility] 5.90 11:22 AM T [place] mil/cu mm CLINIC HEMOGLOBIN 7.8 (L) 13.5 - 06/03/2022 [facility] 17.5 g/dL 11:22 AM [facility] HEMATOCRIT 27.2 (L) 37.0 - 06/03/2022 [facility] 53.0 % 11:22 AM [facility] MCV 76 (L) 80 - 100 06/03/2022 [facility] fL 11:22 AM [facility] MCH 21.8 (L) 26.0 - 06/03/2022 [facility] 34.0 pg 11:22 AM [facility] MCHC 28.7 (L) 32.0 - 06/03/2022 [facility] 36.0 g/dL 11:22 AM [facility] RDW 19.6 (H) 11.5 - 06/03/2022 [facility] 15.5 % 11:22 AM [facility] PLATELET COUNT 198 140 - 440 [facility] MPV 10.5 6.5 - 11.0 06/03/2022 [facility] 11:22 AM [facility] Specimen Anatomical Collection Method Collection Time Receive d Time (Source) Location / / Volume Laterality Blood BLOOD SPECIMEN / Butterfly / 06/03/2022 10:08 022 Unknown Unknown AM CDT 10:11 AM CDT Meghna Fox DO HEMATOLOGY Performing Organization Address City/State/ZIP Code Phon e Number [facility] [address] [place] [address] PSA TOTAL (DIAGNOSTIC) (06/03/2022 10:08 AM CDT) P athologist Signature PSA TOTAL 0.92 <4.00 06/04/2022 [facility] (DIAGNOSTIC) ng/mL 6:29 AM CDT LABORATORY-[facility] Specimen Anatomical Collection Method Collection Time Receive d Time (Source) Location / / Volume Laterality Blood BLOOD SPECIMEN / Butterfly / 06/03/2022 10:08 022 Unknown Unknown AM CDT 10:11 AM CDT Narrative [facility] LABORATORY-CENTRAL LABORAT ORY - 06/04/2022 6:29 AM CDT The percentage of Free PSA can be used to enhance the differentiation of prostate cancer from benign prostatic disease in subjects whose PSA levels are between 4.00 and 10.00 ng/mL. The % Free PSA will be reported only for PSA values between 4.00 and 10.00 ng/mL. The [employer] Specialist PSA assay is a Chem iluminescent Microparticle Immunoassay(CMIA). Assay values obtained with different assay methods cannot be used interchangeably due to differences in assay method s and reagent specificity. ? Meghna Fox DO CHEMISTRY Performing Organization Address City/State/ZIP Code Phon e Number [facility] [address] [place] [address] LABORATORY-CENTRAL 2000 LABORATORY LIPID PANEL (06/03/2022 10:08 AM CDT) Patholo gist Method Time Signature CHOLESTEROL,TOTAL 130 100 - [...] Organization Address City/State/ZIP Code Phon e Number [facility] [address] [place] [address] LABORATORY-CENTRAL 2000 LABORATORY (ABNORMAL) BASIC METABOLIC PANEL (06/03/2022 10:08 AM CDT) Analysis Performed At Patho logist Time Signature SODIUM 136 135 - 145 06/04/2022 [facility] mmol/L 6:06 AM CDT LABORATORY-ANNI TRAL LABORATORY POTASSIUM 5.2 (H) 3.5 - 5.0 06/04/2022 [facility] mmol/L 6:06 AM CDT LABORATORY-ANNI TRAL LABORATORY CHLORIDE 108 98 - 110 06/04/2022 [facility] mmol/L 6:06 AM CDT LABORATORY-ANNI TRAL LABORATORY CO2,TOTAL 20 (L) 21 - 31 06/04/2022 [facility] mmol/L 6:06 AM CDT LABORATORY-ANNI TRAL LABORATORY ANION GAP 8 5 - 18 06/04/2022 [facility] 6:06 AM CDT LABORATORY-ANNI TRAL LABORATORY GLUCOSE 111 (H) 65 - 100 06/04/2022 [facility] mg/dL 6:06 AM CDT LABORATORY-ANNI TRAL LABORATORY CALCIUM 8.1 (L) 8.5 - 10.5 06/04/2022 [facility] mg/dL 6:06 AM CDT LABORATORY-ANNI TRAL LABORATORY BUN 25 8 - 25 06/04/2022 [facility] mg/dL 6:06 AM CDT LABORATORY-ANNI TRAL LABORATORY CREATININE 0.97 0.72 - 06/04/2022 [facility] 1.25 mg/dL 6:06 AM CDT LABORATORY-ANNI TRAL LABORATORY BUN/CREAT RATIO 26 (H) 10 - 20 06/04/2022 [facility] 6:06 AM CDT LABORATORY-ANNI TRAL LABORATORY eGFR 88 (L) >90 06/04/2022 [facility] mL/min/1.7 6:06 AM CDT LABORATORY-ANNI 3m2 TRAL [...] Organization Address City/State/ZIP Code Phon e Number [facility] [address] [place] [address] LABORATORY-CENTRAL 2000 LABORATORY (ABNORMAL) URINE CULTURE (06/03/2022 10:05 AM CDT) [facility] Method Time Signature CULTURE RESULT (A) 06/06/2022 [facility] 6:38 AM CDT LABORATORY-ANNI TRAL LABORATORY CULTURE >100,000 CFU/mL 06/06/2022 [facility] Escherichia 6:38 AM CDT LABORATORY-ANNI coli TRAL [...] Organization Address City/State/ZIP Code Phon e Number [facility] [address] [place] [address] LABORATORY-CENTRAL 2000 LABORATORY from Last 3 Months Insurance Payer Benefit Plan / Subscriber ID Effective Dates Phone Addre ss Type Group [employer] [id number] 2018-Present [address] [address] [place] [address] Care Teams Sound Effects Person Relationship Specialty Start Date End Date Meghna Fox DO PCP - General Family Practice 02/11/22 [address] [place] [address]
--- OUTSIDE RECORDS SUMMARY | 2022-08-12 09:38 | XMS_ITS | Encounter Summary ---
:1960 Author Organization [facility] Address [address] [place] [address] Care Team Providers Name Role Phone Cintia Cobb MD Primary Care Provider Reason for Visit Procedure/Equipment (Routine) - Incomplete Specialty Diagnoses / Procedures Referred By Contact Refer red To Contact Diagnoses Closed fracture of distal end of left femur with routine healing, unspecified fracture morphology, subsequent encounter Delgado Gottlieb MD Procedures XR Knee Lt [address] [place] [address] Referral ID Status Reason Start Date Expiration Date Visits V isits Requested Authorized [id number] Incomplete 07/07/2022 10/06/2023 1 1 Encounter Details Date Type Department Care Team Description 07/07/2022 [facility] Closed frac ture of Procedure Specialty Center Donnell Murray MD distal end of left Radiology [address] femur with routine [address] healing, [place] [address] [place], [place] unspecified [phone] fracture [phone] morphology, (Work) subsequent [phone] encounter (Fax) Social History Tobacco Use Types [...] 09/15/2022 Appointment Orthopedics Delgado Gottlieb MD [address] [place], [place] [address] (Wo rk) 10/08/2022 Appointment Orthopedics Delgado Gottlieb MD [address] [place], [place] [address] (Wo rk) 05/27/2023 Appointment [...] EXAM: XR KNEE LT 2 VIEWS LOCATION: [place] [address] DATE/TIME: 07/07/2022 12:47 PM INDICATION: Left distal [...] EXAM: XR KNEE LT 2 VIEWS LOCATION: [facility] [address] DATE/TIME: 07/07/2022 12:47 PM INDICATION: Left [...] r documented in this encounter Care Teams Carrot Buncher Relationship Specialty Start Date End Date Cintia Cobb MD PCP - General Family Practice 09/30/21 documented as of this encounter
--- OUTSIDE RECORDS SUMMARY | 2022-08-12 09:38 | XMS_ITS | Encounter Summary ---
:1960 Author [facility] Address [address] [place] [address] Care Team Providers Name Role Phone Cintia Cobb MD Primary Care Provider [phone] Reason for Visit Reason Comments Medication Questions Encounter Details Date Type Department Care Team Description 06/13/2022 Refill [facility] Cesar Champagne, Medication Questions [address] [place], [place] [address] [address] [phone] [place] [phone] (Wo rk) Social History Tobacco Use [...] 09/15/2022 Appointment Orthopedics Delgado Gottlieb MD [address] [place], [place] [address] (Gavi rk) 10/08/2022 Appointment Orthopedics Delgado Gottlieb MD [address] [place], [place] [address] (Gavi presley) 05/27/2023 Appointment Chemo Therapy/Infusion Services documented as of this encounter Visit Diagnoses Not on filedocumented in this encounter Care Teams Risk Reduction Counselor Relationship Specialty Start Date End Date Cintia Cobb MD PCP - General Family Practice 09/30/21 documented as of this encounter
--- OUTSIDE RECORDS SUMMARY | 2022-08-12 09:38 | XMS_ITS | Encounter Summary ---
:1960 Author Organization [facility] Address [address], [place] [address] Care Team Providers Name Role Phone Cintia Cobb MD Primary Care Provider [phone] Reason for Visit Reason Comments QUESTIONS, GENERAL Encounter Details Date Type Department Care Team Description 07/14/2022 Telephone Specialty Center [address] Delgado Gottlieb MD QUESTIONS, GENERAL Orthopedics Clinic [address] [place] [address] [place] [address] [phone] Social History Tobacco Use Types Packs/Day Years [...] Noted. Rosetta Ye RN 07/15/2022, 9:33 AM D HEALTH OFFICER Delgado Gottlieb MD - 07/14/2022 11:04 PM [...] to figure out how to get to [facility] to get groceries vs [employer] as [...] Yes Nory Padilla Mai 07/14/2022, 10:06 AM D HEALTH OFFICER documented in this encounter Plan of Treatment Upcoming Encounters Date Type Specialty Care Team Description 09/15/2022 Appointment Orthopedics Delgado Gottlieb MD [address] [place], [place] [address] (Wo rk) 10/08/2022 Appointment Orthopedics Delgado Gottlieb MD [address] [place], [place] [address] (Wo rk) 05/27/2023 Appointment Chemo Therapy/Infusion Services documented as of this encounter Visit Diagnoses Not on filedocumented in this encounter Care Teams Aircraft Maintenance Technician Relationship Specialty Start Date End Date Cintia Cobb MD PCP - General Family Practice 09/30/21 documented as of this encounter
--- OUTSIDE RECORDS SUMMARY | 2022-08-12 09:38 | XMS_ITS | Encounter Summary ---
:1960 Author Organization [facility] Address [address] [place] [address] Care Team Providers Name Role Phone Cintia Cobb MD Primary Care Provider [phone] Encounter Details Date Type Department Care Team Description 06/23/2022 Telephone Specialty Center [address] Delgado Gottlieb MD Orthopedics Clinic [address] [place] [address]. [place] [address] [place] [address] [phone] Social History Tobacco Use Types Packs/Day Years [...] 09/15/2022 Appointment Orthopedics Delgado Gottlieb MD [address] [place] [phone] (Gavi presley) 10/08/2022 Appointment Orthopedics Delgado Gottlieb MD [address] [place] [phone] (Wo rk) 05/27/2023 Appointment Chemo Therapy/Infusion Services documented as of this encounter Visit Diagnoses Not on filedocumented in this encounter Care Teams Primary Care Coordinator Relationship Specialty Start Date End Date Cintia Cobb MD PCP - General Family Practice 09/30/21 documented as of this encounter
--- OUTSIDE RECORDS SUMMARY | 2022-08-12 09:38 | XMS_ITS | Encounter Summary ---
:1960 Author Organization [facility] Address [address] [place] [address] Care Team Providers Name Role Phone Cintia Cobb MD Primary Care Provider [phone] Reason for Visit Reason Comments Nurse Return Call Request Low back pain Encounter Details Date Type Department Care Team Description 05/19/2022 Telephone [facility] Cesar Champagne Nurse Return Call [address] [facility] MD Terri Request (Low back pain) [place], [place] [address] [address] [facility] [phone] [address] [place] [address] Social History Tobacco Use Types [...] that normal? Please call the pt at [phone] and if no answer keep trying as he will be in and out of his truck. When did the issue start: over the weekend Have you been seen for this recently?: 03/14/22 Didier Delgado [School Counsellor/Appt Center: If yes, please include date and provider.] Is it okay to leave detailed message on your voicemail? No keep trying [School Counsellor/Appt Center: If this call is after 3 p.m., communicate to patient: If we are not able to get back to you by the end of the day and your symptoms worsen please contact the Careline] documented in this encounter Plan of Treatment Upcoming Encounters Date Type Specialty Care Team Description 09/15/2022 Appointment Orthopedics Delgado Gottlieb MD [address] [place], [place] [address] (Gavi presley) 10/08/2022 Appointment Orthopedics Delgado Gottlieb MD [address] [place], [place] [address] (Gavi presley) 05/27/2023 Appointment Chemo Therapy/Infusion Services documented as of this encounter Visit Diagnoses Not on filedocumented in this encounter Care Teams Map Colorer Relationship Specialty Start Date End Date Cintia Cobb MD PCP - General Family Practice 09/30/21 documented as of this encounter
--- OUTSIDE RECORDS SUMMARY | 2022-08-12 09:38 | XMS_ITS | Encounter Summary ---
:1960 Author Organization [employer] Address [address], [place] [address] Care Team Providers Name Role Phone Cintia Cobb MD Primary Care Provider [phone] Reason for Referral Procedure/Equipment (Routine) - Incomplete Specialty Diagnoses / Procedures Referred By Contact Refer red To Contact Diagnoses Closed nondisplaced fracture of left tibial plateau, initial encounter Closed fracture of distal end of left femur with routine healing, unspecified fracture morphology, subsequent encounter Delgado Gottlieb MD Procedures CT Knee Lt WO IV Cont [address] [place] [address] Referral ID Status Reason Start Date Expiration Date Visits V isits Requested Authorized [id number] Incomplete 06/25/2022 09/24/2023 1 1 Reason for Visit Reason Comments Revisit Encounter Details Date Type Department Care Team Description 06/25/2022 Office Visit Specialty Center Delgado Gottlieb, Domenica sed nondisplaced fracture of left tibial plateau, initial encounter (Primary Dx); [address] [facility] Closed fracture of distal end of left fe mur with routine healing, unspecified fracture morphology, subsequent encounter [facility] [address] [place] [address] [place], [place] [phone] [address] Social History Tobacco Use Types Packs/Day Years [...] encounter Patient Instructions Patient InstructionsSidaryl Zenaida Fields, GOLD LETTERER - 06/25/2022 11:00 AM CDT ORTHOPAEDICS DEPARTMENT PHONE NUMBER: [phone] Reason for today's visit: Follow up- ORIF [...] TIME PROVIDER LOCATION APPT NOTES ( ) [facility]: [address] [place] [address] ( ) [facility]: [address] [place], [place] ( ) Other: Follow up- ORIF Left supracondylar distal femur fracture, utilizing both plate and nail fixation DOS: 10/01/2021 ( ) [facility]: [address] [place] [address] ( ) [facility] [address] [place], [place] ( ) Other: If you have any questions about your visit, your symptoms, your medication, your test results or it is not clear what your diagnosis or treatment plan is please contact us at [phone] or send us a secure message via [employer]. You may receive surveys via mail, e-mail or text regarding your visit and recovery. Your feedback isvery important to us. Please take a moment to complete them. If you would like to speak to someone specifically, you may contact the clinic at [phone] and your call will be directed to someone on our leadership team. Thank you for choosing [facility]. If you need to schedule an appointment, you may call our office at [phone]. We are open Thursday-Thursday 8 am - [...] to work as soon as able. 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 His left leg is important for driving, [...] agreement with this plan. Delgado Gottlieb MD Abrasive Worker [facility] Department of Orthopaedic Surgery [facility] documented in this encounter Plan of Treatment Upcoming Encounters Date Type Specialty Care Team Description 09/15/2022 Appointment Orthopedics Delgado Gottlieb MD [address] [place] [phone] (Gavi rk) 10/08/2022 Appointment Orthopedics Delgado Gottlieb MD [address] [place] [phone] (Gavi presley) 05/27/2023 Appointment Chemo [...] LT WO IV CONT LOCATION: Specialty Center [facility] DATE/TIME: 06/25/2022 11:21 AM INDICATION: Tibial tubercle [...] fract ure. Hardware partially seen on the pizza hut assistant images in the distal femur from lateral [...] fracture. Hardware parti ally seen on the pizza hut assistant images in the distal femur from lateral [...] r documented in this encounter Care Teams Sanitary Plumber Relationship Specialty Start Date End Date Cintia Cobb MD PCP - General Family Practice 09/30/21 documented as of this encounter
--- OUTSIDE RECORDS SUMMARY | 2022-08-12 09:38 | XMS_ITS | Encounter Summary ---
:1960 Author Organization [facility] Address [address] [place] [address] Care Team Providers Name Role Phone Cintia Cobb MD Primary Care Provider [phone] Reason for Visit Procedure/Equipment (Routine) - Incomplete Specialty Diagnoses / Procedures Referred By Contact Refer red To Contact Diagnoses Closed nondisplaced fracture of left tibial plateau, initial encounter Closed fracture of distal end of left femur with routine healing, unspecified fracture morphology, subsequent encounter Delgado Gottlieb MD Procedures CT Knee Lt WO IV Cont [address] [place] [address] Referral ID Status Reason Start Date Expiration Date Visits V isits Requested Authorized [id number] Incomplete 06/25/2022 09/24/2023 1 1 Encounter Details Date Type Department Care Team Description 06/25/2022 [facility]illary [facility] Acute pain of left knee; Procedure Specialty Center Donnell Murray MD Closed fracture of distal end of left fe mur with routine healing, unspecified fracture morphology, subsequent encounter Radiology [address] [place] [address] [place], [place] [phone] [address] Social History Tobacco Use Types Packs/Day Years [...] 09/15/2022 Appointment Orthopedics Delgado Gottlieb MD [address] [place], [place] [address] (Wo rk) 10/08/2022 Appointment Orthopedics Delgado Gottlieb MD [address] [place], [place] [address] (Wo rk) 05/27/2023 Appointment [...] fract ure. Hardware partially seen on the plate hanger images in the distal femur from lateral [...] fracture. Hardware parti ally seen on the plate hanger images in the distal femur from lateral [...] r documented in this encounter Care Teams Undraped Artist Model Relationship Specialty Start Date End Date Cintia Cobb MD PCP - General Family Practice 09/30/21 documented as of this encounter
--- OUTSIDE RECORDS SUMMARY | 2022-08-12 09:38 | XMS_ITS | Encounter Summary ---
:1960 Author Organization [facility] Address [address] [place] [address] Care Team Providers Name Role Phone Cintia Cobb MD Primary Care Provider [phone] Reason for Visit Reason Comments Infusion Infusion [...] cified site, initial encounter for fracture [address] [facility] [address] [address] Procedures ZOLEDRONIC [place] 1[place] [address] [place] [address] Phone: Fax: Referral ID Status Reason Start Date Expiration Date Visits V isits Requested Authorized [id number] Authorized 01/08/2022 01/20/2023 999 999 Encounter Details Date Type Department Care Team Description 05/27/2022 Hospital Encounter [facility] Domenica Mcallister fracture of Center JACQUELIN Mendez distal end of left [address] [address] [facility] [address] healing, [place], [place] unspecif ied [address] fracture [phone] morphology, (Work) subsequent encounter (Primary Dx) Social [...] 09/15/2022 Appointment Orthopedics Delgado Gottlieb MD [address] [place], [place] [address] (Gavi presley) 10/08/2022 Appointment Orthopedics Delgado Gottlieb MD [address] [place], [place] [address] (Gavi presley) 05/27/2023 Appointment [...] glove documented in this encounter Care Teams Supervisor Metalizing Relationship Specialty Start Date End Date Cintia Cobb MD PCP - General Family Practice 09/30/21 documented as of this encounter
--- OUTSIDE RECORDS SUMMARY | 2022-08-12 09:39 | XMS_ITS | Encounter Summary ---
:1960 Author Organization [facility] Address [address] [facility] [place] [address] Care Team Providers Name Role Phone Cintia Cobb MD Primary Care Provider [phone] Reason for Visit Reason Comments IV,THERAPY Prior Authorization For Infusion Medication Reclast J3 489 - add additional DIAG code to TP Order Encounter Details Date Type Department Care Team Description 01/10/2022 Telephone [facility] Delmer Valladares, ONOFRE,THE RAPY; Prior CENTER PA-C Authorization For [address] Infusion Medication [place], [place] [address] [place], [place] (Reclast J3489 - add [phone] additional DIAG code to [phone] (Wo rk) TP Order) Social History Tobacco [...] one. Thank you, Jelena Owens Specialty Care Sustainability Purchasing Agent [address] Mail Stop: [address] [place] [address] Office: [phone] documented in this encounter Plan of Treatment Upcoming Encounters Date Type Specialty Care Team Description 09/15/2022 Appointment Orthopedics Delgado Gottlieb MD [address] [place], [place] [address] (Gavi presley) 10/08/2022 Appointment Orthopedics Delgado Gottlieb MD [address] [place], [place] [address] (Gavi presley) 05/27/2023 Appointment Chemo Therapy/Infusion Services documented as of this encounter Visit Diagnoses Not on filedocumented in this encounter Care Teams Log Yard Derrick Operator Relationship Specialty Start Date End Date Cintia Cobb MD PCP - General Family Practice 09/30/21 documented as of this encounter
--- OUTSIDE RECORDS SUMMARY | 2022-08-12 09:39 | XMS_ITS | Encounter Summary ---
:1960 Author Organization [employer] Address [address] [place] [address] Care Team Providers Name Role Phone Cintia Cobb MD Primary Care Provider [phone] Reason for Visit Reason Comments QUESTIONS, GENERAL Left Leg Encounter Details Date Type Department Care Team Description 03/17/2022 Telephone Specialty Center [address] Delgado Gottlieb, QUESTIONS, GENERAL Orthopedics Clinic (Left Leg) [facility] [address] [place] [address] [place], [place] [phone] Social History Tobacco Use Types Packs/Day Years [...] leave this as an FYI to the [facility] time to clarify that he knows his [...] He states it feels like a vice lens fabricating machine tender. He states he is also havinga sharp [...] 09/15/2022 Appointment Orthopedics Delgado Gottlieb MD [address] [place], [place] [address] (Gavi presley) 10/08/2022 Appointment Orthopedics Delgado Gottlieb MD [address] [place], [place] [address] (Gavi presley) 05/27/2023 Appointment Chemo Therapy/Infusion Services documented as of this encounter Visit Diagnoses Not on filedocumented in this encounter Care Teams Plywood Layup Line Back Feeder Relationship Specialty Start Date End Date Cintia Cobb MD PCP - General Family Practice 09/30/21 documented as of this encounter
--- OUTSIDE RECORDS SUMMARY | 2022-08-12 09:39 | XMS_ITS | Encounter Summary ---
:1960 Author Organization [employer] Address [address] [place] [address] Care Team Providers Name Role Phone Cintia Cobb MD Primary Care Provider Reason for Visit Reason Comments COVID Screening Pre op screening Encounter Details Date Type Department Care Team Description 01/17/2022 Telephone [facility] Cesar Champagne COVID Screening (Pre op [address] [facility] MD Terir screening) [place], [place] [address] [address] [facility] [phone] [place] [address] Social History Tobacco Use Types Packs/Day [...] Lesli Motley - 01/20/2022 9:29 AM CDT [facility] never reached back with a fax [...] covid test order to be send to [facility] so he can get his test next [...] allow his covid test to happen. Called [facility] and spoke with the wound clinic where he wasjust seen and she directed me to the lab light industrial supervisor at [phone] to see if they want the order directly. I left the lab light industrial supervisor a detailed message regarding the situation and needing a correct fax #. Spine nurse, can you please sign the pended covid test orders. When I get a call back from [facility] I can fax it. documented in this encounter Plan of Treatment Upcoming Encounters Date Type Specialty Care Team Description 09/15/2022 Appointment Orthopedics Delgado Gottlieb MD [address] [place], [place] [address] (Gavi presley) 10/08/2022 Appointment Orthopedics Delgado Gottileb MD [address] [place], [place] [address] (Gavi presley) 05/27/2023 Appointment Chemo Therapy/Infusion Services documented as of this encounter Visit Diagnoses Diagnosis Screening examination for infectious dis ease - Primary Screening examination for unspecified in fectious disease documented in this encounter Care Teams Multimedia Production Assistant Relationship Specialty Start Date End Date Cintia Cobb MD PCP - General Family Practice 09/30/21 documented as of this encounter
--- OUTSIDE RECORDS SUMMARY | 2022-08-12 09:39 | XMS_ITS | Encounter Summary ---
:1960 Author Organization [employer] Address [address] [place] [address] Care Team Providers Name Role Phone Cintia Cobb MD Primary Care Provider [phone] Encounter Details Date Type Department Care Team Description 01/27/2022 Notes/Orders [facility] Cesar Champagne, [address] [place], [place] [address] [address] [address] [place] [address] (Gavi rk) Social History Tobacco [...] 09/15/2022 Appointment Orthopedics Delgado Gottlieb MD [address] [place] [address] (Gavi rk) 10/08/2022 Appointment Orthopedics Delgado Gottlieb MD [address] [place] [phone] (Wo rk) 05/27/2023 Appointment Chemo Therapy/Infusion Services documented as of this encounter Visit Diagnoses Not on filedocumented in this encounter Care Teams Ice Cream Man Relationship Specialty Start Date End Date Cintia Cobb MD PCP - General Family Practice 09/30/21 documented as of this encounter
--- OUTSIDE RECORDS SUMMARY | 2022-08-12 09:39 | XMS_ITS | Encounter Summary ---
:1960 Author Organization [facility] Address [address], [place] [address] Care Team Providers Name Role Phone Cintia Cobb MD Primary Care Provider [phone] Reason for Visit Reason Comments Medication Questions Reclast Encounter Details Date Type Department Care Team Description 03/26/2022 Telephone [facility] Delmer Valladares, Medica tion Questions CENTER [facility] (Reclast) [address] [facility] [address] [place] [address] [place] [address] [place], [place] [phone] (Wo rk) Social History Tobacco Use Types [...] she is rerouting referral to [facility] Petra Cervantes - 03/26/2022 3:54 PM CDT [...] message with his . Please use - [phone] as the best number to reach the patient. Let me know if I need to send this somewhere else. Thanks! documented in this encounter Plan of Treatment Upcoming Encounters Date Type Specialty Care Team Description 09/15/2022 Appointment Orthopedics Delgado Gottlieb MD [address] [place], [place] [address] (Wo rk) 10/08/2022 Appointment Orthopedics Delgado Gottlieb MD [address] [place] [address] (Wo rk) 05/27/2023 Appointment Chemo Therapy/Infusion Services documented as of this encounter Visit Diagnoses Not on filedocumented in this encounter Care Teams Recovery Coordinator Relationship Specialty Start Date End Date Cintia Cobb MD PCP - General Family Practice 09/30/21 documented as of this encounter
--- OUTSIDE RECORDS SUMMARY | 2022-08-12 09:39 | XMS_ITS | Encounter Summary ---
:1960 Author Organization [employer] Address [address] [place] [address] Care Team Providers Name Role Phone Cintia Cobb MD Primary Care Provider [phone] Encounter Details Date Type Department Care Team Description 02/16/2022 Notes/Orders [facility] Cesar Champagne, [address] [place], [place] [address] [address] [address] [place] [address] (Gavi rk) Social History Tobacco [...] 09/15/2022 Appointment Orthopedics Delgado Gottlieb MD [address] [place] [address] (Gavi rk) 10/08/2022 Appointment Orthopedics Delgado Gottlieb MD [address] [place] [address] (Wo rk) 05/27/2023 Appointment Chemo Therapy/Infusion Services documented as of this encounter Visit Diagnoses Not on filedocumented in this encounter Care Teams Degreaser Operator Relationship Specialty Start Date End Date Cintia Cobb MD PCP - General Family Practice 09/30/21 documented as of this encounter
--- OUTSIDE RECORDS SUMMARY | 2022-08-12 09:39 | XMS_ITS | Encounter Summary ---
:1960 Author Organization [employer] Address [address] [place] [address] Care Team Providers Name Role Phone Cintia Cobb MD Primary Care Provider Encounter Details Date Type Department Care Team Description 01/27/2022 Orders Only HIM DEPARTMENT Provider, Aguilar hernandez [place] [address] Social History Tobacco Use Types Packs/Day Years [...] Appointment Orthopedics Delgado Gottlieb MD [address] [place], [place] [address] (Gavi presley) 10/08/2022 Appointment Orthopedics Delgado Gottlieb MD [address] [place] [address] (Gavi presley) 05/27/2023 Appointment [...] on filedocumented in this encounter Care Teams Civil Defense Director Relationship Specialty Start Date End Date Cintia Cobb MD PCP - General Family Practice 09/30/21 documented as of this encounter
--- OUTSIDE RECORDS SUMMARY | 2022-08-12 09:39 | XMS_ITS | Encounter Summary ---
:1960 Author Organization [facility] Address [address], [place] [address] Care Team Providers Name Role Phone Cintia Cobb MD Primary Care Provider [phone] Reason for Visit Reason Comments Refill Encounter Details Date Type Department Care Team Description 03/01/2022 Refill [facility] Ita Alvarez PA-C Refill [address] [facility] [address] [facility] [place], [place] [address] [place] [address] [phone] (Wo rk) Social History Tobacco Use Types [...] Description 09/15/2022 Appointment Orthopedics Delgado Gottlieb MD [address] [place] [address] (Wo rk) 10/08/2022 Appointment Orthopedics Delgado Gottlieb MD [address] [place] [phone] (Gavi presley) 05/27/2023 Appointment Chemo Therapy/Infusion Services documented as of this encounter Visit Diagnoses Not on filedocumented in this encounter Care Teams Automobile Damage Field Appraiser Relationship Specialty Start Date End Date Cintia Cobb MD PCP - General Family Practice 09/30/21 documented as of this encounter
--- OUTSIDE RECORDS SUMMARY | 2022-08-12 09:39 | XMS_ITS | Encounter Summary ---
:1960 Author Organization [employer] Address [address] [place] [address] Care Team Providers Name Role Phone Cintia Cobb MD Primary Care Provider [phone] Reason for Visit Auth/Cert Specialty Diagnoses / Procedures Referred By Contact Refer red To Contact Diagnoses Lumbar stenosis with neurogenic claudication Procedures Bilateral Lumbar 2-Lumbar 4 Decompression Foraminotomy Referral ID Status Reason Start Date Expiration Date Visits Requ ested Visits Authorized [id number] 1 1 Encounter Details Date Type Department Care Team Description 01/27/2022 Surgery [facility] Evreardo Scherer Lumbar 2-Lumbar Room MD Terri 4 Decompression [address] [facility] Foraminotomy [place], [place] [address] [place], [place] [phone] Social History Tobacco Use Types Packs/Day [...] told patient that she would page the clinical sales consultant MD. Patient refused because he wanted to [...] Delgado PA-C - 01/27/2022 2:04 PM CDT [facility] Brief Operative Progress Note Surgery [...] planned. See operative note. Didier Delgado PA-C [phone] Everardo Scherer MD - 01/27/2022 12:00 AM CDT NAME: NOEMÍ LUNA [facility]: [id number] OPERATIVE REPORT DATE OF SURGERY: 01/27/2022 : 1960 SURGEON: EVERARDO SCHERER MD ASSOCIATE PROFESSOR OF FORESTRY: Freddy Delgaod PA-C. PREOPERATIVE DIAGNOSIS: Bilateral spinal stenosis with [...] with 2 and 3 mm Kerrisons. My housing assistant protected the neural elements through the decompression. Subarticular decompression was obtained with decompression ofthe transversing lumbar 3 and 4 nerve roots. Finally formal foraminal decompression was carried out with my housing assistant protecting the exiting L2 and 3 [...] this surgical procedure. EVERARDO SCHERER MD JNIKHIL/AQS /[id number] documented in this encounter Miscellaneous Notes OR Nursing - Lesli Ng RN - 01/24/2022 3:42 PM CDT Pre-Procedure Assessment, PPA. Patient reports pre-procedure Covid-19 test done in [place] at [facility] on Thursday, January 24. Results will be available in Care Everywhere. Last HGB 7.6 on 12/31/21; Paged to notify HGB result, dx chronic anemia. Anesthesiologist notified of upcoming procedure and HGB 7.6 with recent hx requiring blood transfusion [facility] No orders received. History and Physical also noted an open wound to right lower extremity being treated at a wound clinic in [place]; page to Dr. Scherer included FYI regarding wound. When patient received NPO instructions, he stated, Well I've had other surgeries when I have eaten breakfast and didn't have any problems. Forensic Sergeant attempted to explain potential risks [facility] is in place for his health and safety; Dr. Scherer's office notified. documented in this encounter Plan of Treatment Upcoming Encounters Date Type Specialty Care Team Description 09/15/2022 Appointment Orthopedics Delgado Gottlieb MD [address] [place], [place] [address] (Gavi presley) 10/08/2022 Appointment Orthopedics Delgado Gottlieb MD [address] [place] [phone] (Gavi presley) 05/27/2023 Appointment Chemo [...] (01/27/2022 2:25 PM CDT) Analysis Performed At [facility] Time Signature Glucose, Whole 110 70 - 180 01/27/2022 [facility] Blood mg/dL 2:26 PM CDT LABORATORY Performing MT PACU 01/27/2022 [facility] Location 2:26 PM CDT LABORATORY Specimen Anatomical Collection Method Collection Time Receive d Time (Source) Location / / Volume Laterality Blood 01/27/2022 2:25 PM 2 2:26 CDT PM CDT Everardo Scherer MD LAB_1 Performing Organization Address [facility] Code Phon e Number [facility] [address] [place] [address] Antibody Screen (01/27/2022 11:46 AM CDT) Patholo gist Method Time Signature Antibody Screen Negative 01/27/2022 [facility] Interpretation 12:50 PM CDT BLOOD BANK Specimen Anatomical Collection Method / Collection Time Recei shahid Time (Source) Location / Volume Laterality Blood Venipuncture / 01/27/2022 11:46 2 Unknown AM CDT 11:51 AM CDT Efra Javier MD LAB_1 Performing Organization Address [facility] Phon e Number [facility] [address] [place] [address] Blood Type (01/27/2022 11:46 AM CDT) P athologist Signature ABO A 01/27/2022 [facility] 12:35 PM CDT BLOOD BANK RH Positive 01/27/2022 [facility] 12:35 PM CDT BLOOD BANK Specimen Anatomical Collection Method / Collection Time Recei shahid Time (Source) Location / Volume Laterality Blood Venipuncture / 01/27/2022 11:46 2 Unknown AM CDT 11:51 AM CDT Efra Javier MD LAB_1 Performing Organization Address [facility] Code Phon e Number [facility] [address] [place] [address] Glucose, Whole Blood POCT (01/27/2022 10:53 AM CDT) Analysis Performed At Patho logist Time Signature Glucose, Whole 105 70 - 180 01/27/2022 [facility] Blood mg/dL 10:54 AM CDT LABORATORY Performing MT SURG 01/27/2022 [facility] Location 10:54 AM CDT LABORATORY Specimen Anatomical Collection Method Collection Time Receive d Time (Source) Location / / Volume Laterality Blood 01/27/2022 10:53 01/27/2022 AM CDT 10:54 AM CDT Everardo Scherer MD LAB_1 Performing Organization Address City/State/ZIP Code Phon e Number [facility] [address] [place] [address] documented in this encounter Visit Diagnoses Diagnosis [...] 1:39 PM CDT 8 mL (SENSORCAINE) 0.25% -1:646562 injection ONCE PRN, Starting on Thu01/27/22 at 1339, Until Thu01/27/22 at 2056, Intra-op dextrose 5 % infusion at 250 mL/hr, ONCE PRN, Other, for nausea if all other options have failed and patient is not diabetic., Starting on Thu01/27/22 at 0 823, For 1 dose, PACU/Recovery fentaNYL (SUBLIMAZE) injection 25-50 mcg 25-50 mcg, Intravenous, [id number], Other, Moderate to Severe Pain (pain score [...] (DEMEROL) injection 12.5 mg 12.5 mg, Intravenous, [id number], Shiverin g, Starting on Thu01/27/22 at 0823, [...] pain scores)., Po st-op bupivacaine-epinephrine (SENSORCAINE) 0.25% -1:642503 injection 1339 (Given - Provider: Everardo Scherer MD) ONCE PRN, Starting on Thu01/27/22 at 1339, Until Thu01/27/22 at 2056, Intra-op dextrose 5 % infusion at 250 mL/hr, ONCE PRN, Other, for nause a if all other options have failed and patient is not diabetic., Starting on Thu01/27/22 at 0823, For 1 dose, PACU/Recovery fentaNYL (SUBLIMAZE) injection 25-50 mcg 25-50 mcg, Intravenous, [id number], Other, Moderate to Severe Pain (pain score [...] (DEMEROL) injection 12.5 mg 12.5 mg, Intravenous, [id number], Shiverin g, Starting on Thu01/27/22 at 0823, [...] PACU/Recovery documented in this encounter Care Teams Cocoa Powder Mixer Operator Relationship Specialty Start Date End Date Cintia Cobb MD PCP - General Family Practice 09/30/21 documented as of this encounter
--- OUTSIDE RECORDS SUMMARY | 2022-08-12 09:39 | XMS_ITS | Encounter Summary ---
:1960 Author Organization [facility] Address [address] [place] [address] Care Team Providers Name Role Phone Cintia Cobb MD Primary Care Provider [phone] Reason for Referral Therapies (Routine) - Closed Specialty Diagnoses / Procedures Referred By Contact Refer red To Contact Diagnoses Status post lumbar spine surgery for decompression of spinal cord Freddy Delgado PA-C [address] [place], [place] [address] Referral ID Status Reason Start Date Expiration Date Visits Requ ested Visits Authorized [id number] Closed 03/14/2022 03/14/2023 1 1 Scheduling Instructions [...] lumbar CENTER [facility] spine surgery for [address] decompression of [place] [id number] spinal cord (Primary [phone] [place], [place] Dx) [id number] Social History Tobacco Use Types Packs/Day Years [...] 9:04 AM CDT Thank you for Choosing [facility] for your health care visit today. Didier Delgado PA-C Orthopaedic Physician Senior Gamemaster You were provided with an order for physical therapy to focus on core stabilization and stretching and strengthening of lower extremities and postural training Medication Requests: Prescriptions are not filled on weekends or on weekdays after 3:00 PM. For all medication refills: Request a refill using [employer] or contact your pharmacy. What is Know Your Cost? Know Your Cost is a service for patients and patient/members to call and receive personalized cost information and estimates across our care group. The phone number is (COST) Thursday - Thursday 8 AM to 5 PM Advanced Imaging Scheduling: To schedule an MRI, Ultrasound, or Image guided injection at [facility] please call [phone]. To schedule an MRI or CT at a [facility] [place] [facility] please call [phone]. [facility] Workers' Compensation [address] [place] [address] (Phone) Email: [email or web address] Release of Information: Radiology/Imaging [address] [place], [place] [address] (Phone) Health Information Management [address] [place], [place] [address] (Phone) Stratio documented in this encounter Progress Notes Freddy Delgado PA-C - 03/14/2022 12:00 AM CDT NAME: LAZ LUNA CSN: [id number] CLINIC NOTE DATE OF SERVICE: 03/14/2022 : [...] or concerns in the meantime. [facility] MELGOZA/JOSEPH /[id number] documented in this encounter Plan of Treatment Upcoming Encounters Date Type Specialty Care Team Description 09/15/2022 Appointment Orthopedics Delgado Gottlieb MD [address] [place] [phone] (Gavi rk) 10/08/2022 Appointment Orthopedics Delgado Gottlieb MD [address] [place] [phone] (Gavi presley) 05/27/2023 Appointment Chemo Therapy/Infusion Services Scheduled Referrals Name Type Priority Associated Diagnoses Order S chedule Physical Therapy Referral Routine Status post lumbar spine Ordered: 03/14/2022 surgery for decompression of spinal cord documented as of this encounter Visit Diagnoses Diagnosis Status post lumbar spine surgery for dec ompression of spinal cord - Primary documented in this encounter Care Teams Wind Farm Support Specialist Relationship Specialty Start Date End Date Cintia Cobb MD PCP - General Family Practice 09/30/21 documented as of this encounter
--- OUTSIDE RECORDS SUMMARY | 2022-08-12 09:39 | XMS_ITS | Encounter Summary ---
:1960 Author Organization [facility] Address [address] [place] [address] Care Team Providers Name Role Phone Cintia Cobb MD Primary Care Provider [phone] Encounter Details Date Type Department Care Team Description 01/27/2022 Orders Only HIM DEPARTMENT Provider, Aguilar hernandez [place] [address] Social History Tobacco Use Types Packs/Day Years [...] 09/15/2022 Appointment Orthopedics Delgado Gottlieb MD [address] [place], [place] [address] (Gavi presley) 10/08/2022 Appointment Orthopedics Delgado Gottlieb MD [address] [facility] [place] [place] [address] (Gavi presley) 05/27/2023 Appointment [...] on filedocumented in this encounter Care Teams Obstetric Assistant Relationship Specialty Start Date End Date Cintia Cobb MD PCP - General Family Practice 09/30/21 documented as of this encounter
--- OUTSIDE RECORDS SUMMARY | 2022-08-12 09:39 | XMS_ITS | Encounter Summary ---
:1960 Author Organization [employer] Address [address] [place] [address] Care Team Providers Name Role Phone Cintia Cobb MD Primary Care Provider [phone] Reason for Visit Reason Comments QUESTIONS, GENERAL Encounter Details Date Type Department Care Team Description 01/15/2022 Telephone Specialty Center [address] Delgado Gottlieb MD QUESTIONS, GENERAL Orthopedics Clinic [address] [place] [address] [place] [address] [phone] Social History Tobacco Use Types Packs/Day Years [...] - 01/23/2022 8:53 AM CDT TR at [phone] and follow the prompt for [facility] and ask to speak with one of the nurses. Rosetta Ye RN 01/23/2022, 8:53 AM Rosetta Ye RN - 01/21/2022 10:06 AM CDT [facility] at [phone] and follow the prompt for [facility] and [...] Attempted to reach on home phone - [facility] at [phone] and follow the prompt for [facility] and [...] 09/15/2022 Appointment Orthopedics Delgado Gottlieb MD [address] [place] [phone] (Wo rk) 10/08/2022 Appointment Orthopedics Delgado Gottlieb MD [address] [place] [phone] (Wo rk) 05/27/2023 Appointment Chemo Therapy/Infusion Services documented as of this encounter Visit Diagnoses Not on filedocumented in this encounter Care Teams Non Profit Financial Controller Relationship Specialty Start Date End Date Cintia Cobb MD PCP - General Family Practice 09/30/21 documented as of this encounter
--- OUTSIDE RECORDS SUMMARY | 2022-08-12 09:39 | XMS_ITS | Encounter Summary ---
:1960 Author Organization [facility] Address [address] [place] [address] Care Team Providers Name Role Phone Cintia Cobb MD Primary Care Provider [phone] Reason for Visit Reason Comments APPOINTMENT REQUEST Pt requesting to have his po stop appt first thing in the morning due to work commitment. Encounter Details Date Type Department Care Team Description 02/04/2022 Telephone [facility] Freddy Delgado, APPOI NTMENT REQUEST CENTER [facility] (Pt requesting to have [address] his postop appt first [place], [place] [address] [place], [place] thing in the morning [phone] due to work [phone] (Wo rk) commitment. ) Social History Tobacco [...] you been seen for this recently?: n/a [Pile Driver Engineer/Appt Center: If yes, please include date and provider.] Is it okay to leave detailed message on your voicemail? yes [Pile Driver Engineer/Appt Center: If this call is after 3 p.m., communicate to patient: If we are not able to get back to you by the end of the day and your symptoms worsen please contact the Careline] documented in this encounter Plan of Treatment Upcoming Encounters Date Type Specialty Care Team Description 09/15/2022 Appointment Orthopedics Delgado Gottlieb MD [address] [place], [place] [address] (Gavi presley) 10/08/2022 Appointment Orthopedics Delgado Gottlieb MD [address] [place] [phone] (Gavi presley) 05/27/2023 Appointment Chemo Therapy/Infusion Services documented as of this encounter Visit Diagnoses Not on filedocumented in this encounter Care Teams Perch Mender Relationship Specialty Start Date End Date Cintia Cobb MD PCP - General Family Practice 1/24/22 documented as of this encounter
--- OUTSIDE RECORDS SUMMARY | 2022-08-12 09:39 | XMS_ITS | Encounter Summary ---
:1960 Author Organization [employer] Address [address] [place] [address] Care Team Providers Name Role Phone Cintia Cobb MD Primary Care Provider [phone] Reason for Visit Auth/Cert Specialty Diagnoses / Procedures Referred By Contact Refer red To Contact Diagnoses Lumbar stenosis with neurogenic claudication Procedures Bilateral Lumbar 2-Lumbar 4 Decompression Foraminotomy Referral ID Status Reason Start Date Expiration Date Visits Requ ested Visits Authorized [id number] 1 1 Encounter Details Date Type Department Care Team Description 01/27/2022 Hospital Encounter [facility] Louis Scherer inal stenosis of Room Everardo Murray MD lumbar region with [address] neurogenic [place], [place] [address] claudication (Primary [address] [place], Dx) [phone] [place] [phone] Social History Tobacco Use Types Packs/Day Years [...] told patient that she would page the labor relations analyst MD. Patient refused because he wanted [...] Delgado PA-C - 01/27/2022 2:04 PM CDT [facility] Brief Operative Progress Note Surgery Date: 01/27/2022 [...] planned. See operative note. Didier Delgado PA-C [phone] Everardo Scherer MD - 01/27/2022 12:00 AM CDT NAME: NOEMÍ LUNA [facility]: [id number] OPERATIVE REPORT DATE OF SURGERY: 01/27/2022 : 1960 SURGEON: EVERARDO SCHERER MD ART HISTORY PROFESSOR: Freddy Delgado PA-C. PREOPERATIVE DIAGNOSIS: Bilateral spinal [...] with 2 and 3 mm Kerrisons. My residential living assistant protected the neural elements through the decompression. Subarticular decompression was obtained with decompression ofthe transversing lumbar 3 and 4 nerve roots. Finally formal foraminal decompression was carried out with my residential living assistant protecting the exiting L2 and 3 [...] this surgical procedure. EVERARDO SCHERER MD JNIKHIL/AQS /[id number] documented in this encounter Miscellaneous Notes OR Nursing - Lesli Ng RN - 01/24/2022 3:42 PM CDT Pre-Procedure Assessment, PPA. Patient reports pre-procedure Covid-19 test done in [place] at [facility] on Thursday, January 24. Results will be available in Care Everywhere. Last HGB 7.6 on 12/31/21; Paged to notify HGB result, dx chronic anemia. Anesthesiologist notified of upcoming procedure and HGB 7.6 with recent hx requiring blood transfusion after emergency surgery [facility] No orders received. History and Physical also noted an open wound to right lower extremity being treated at a wound clinic in [place]; page to Dr. Scherer included FYI regarding wound. When patient received NPO instructions, he stated, Well I've had other surgeries when I have eaten breakfast and didn't have any problems. Fly Frame Tender attempted to explain potential risks [facility] in place for his health and safety; Dr. Scherer's office notified. documented in this encounter Plan of Treatment Upcoming Encounters Date Type Specialty Care Team Description 09/15/2022 Appointment Orthopedics Delgado Gottlieb MD [address] [place], [place] [address] (Gavi presley) 10/08/2022 Appointment Orthopedics Delgado Gottlieb MD [address] [place] [phone] (Gavi presley) 05/27/2023 Appointment Chemo [...] (01/27/2022 2:25 PM CDT) Analysis Performed At [facility] Time Signature Glucose, Whole 110 70 - 180 01/27/2022 [facility] Blood mg/dL 2:26 PM CDT LABORATORY Performing MT PACU 01/27/2022 [facility] Location 2:26 PM CDT LABORATORY Specimen Anatomical Collection Method Collection Time Receive d Time (Source) Location / / Volume Laterality Blood 01/27/2022 2:25 PM 2 2:26 CDT PM CDT Everardo Scherer MD LAB_1 Performing Organization Address [facility] Code Phon e Number [facility] [address] [place] [address] Antibody Screen (01/27/2022 11:46 AM CDT) Patholo gist Method Time Signature Antibody Screen Negative 01/27/2022 [facility] Interpretation 12:50 PM CDT BLOOD BANK Specimen Anatomical Collection Method / Collection Time Recei shahid Time (Source) Location / Volume Laterality Blood Venipuncture / 01/27/2022 11:46 2 Unknown AM CDT 11:51 AM CDT Efra Javier MD LAB_1 Performing Organization Address [facility] Phon e Number [facility]OD [facility] [address] [place] [address] Blood Type (01/27/2022 11:46 AM CDT) P athologist Signature ABO A 01/27/2022 [facility] 12:35 PM CDT BLOOD BANK RH Positive 01/27/2022 [facility] 12:35 PM CDT BLOOD BANK Specimen Anatomical Collection Method / Collection Time Recei shahid Time (Source) Location / Volume Laterality Blood Venipuncture / 01/27/2022 11:46 2 Unknown AM CDT 11:51 AM CDT Efra Javier MD LAB_1 Performing Organization Address [facility] Phon e Number [facility] [address] [place] [address] Glucose, Whole Blood POCT (01/27/2022 10:53 AM CDT) Analysis Performed At Patho logist Time Signature Glucose, Whole 105 70 - 180 01/27/2022 [facility] Blood mg/dL 10:54 AM CDT LABORATORY Performing MT SURG 01/27/2022 [facility] Location 10:54 AM CDT LABORATORY Specimen Anatomical Collection Method Collection Time Receive d Time (Source) Location / / Volume Laterality Blood 01/27/2022 10:53 01/27/2022 AM CDT 10:54 AM CDT Everardo Scherer MD LAB_1 Performing Organization Address City/State/ZIP Code Phon e Number [facility] [address] [place] [address] documented in this encounter Visit Diagnoses Diagnosis Spinal stenosis of lumbar region with ne urogenic claudication - Primary Spinal stenosis, lumbar region, with kaci rogenic claudication documented in this encounter Administered Medications Inactive Administered Medications - up to 3 most recent administrations Medication Order MAR Action Action Date Dose Rate Site bupivacaine-epinephrine Given 01/27/2022 1:39 PM CDT 8 mL (SENSORCAINE) 0.25% -1:104172 injection ONCE PRN, Starting on Thu01/27/22 at 1339, Until Thu01/27/22 at 2056, Intra-op dextrose 5 % infusion at 250 mL/hr, ONCE PRN, Other, for nausea if all other options have failed and patient is not diabetic., Starting on Thu01/27/22 at 0 823, For 1 dose, PACU/Recovery fentaNYL (SUBLIMAZE) injection 25-50 mcg 25-50 mcg, Intravenous, [id number], Other, Moderate to Severe Pain (pain score [...] (DEMEROL) injection 12.5 mg 12.5 mg, Intravenous, [id number], Shiverin g, Starting on Thu01/27/22 at 0823, [...] pain scores)., Po st-op bupivacaine-epinephrine (SENSORCAINE) 0.25% -1:737340 injection 1339 (Given - Provider: Everardo Scherer MD) ONCE PRN, Starting on Thu01/27/22 at 1339, Until Thu01/27/22 at 2056, Intra-op dextrose 5 % infusion at 250 mL/hr, ONCE PRN, Other, for nause a if all other options have failed and patient is not diabetic., Starting on Thu01/27/22 at 0823, For 1 dose, PACU/Recovery fentaNYL (SUBLIMAZE) injection 25-50 mcg 25-50 mcg, Intravenous, [id number], Other, Moderate to Severe Pain (pain score [...] (DEMEROL) injection 12.5 mg 12.5 mg, Intravenous, [id number], Shiverin g, Starting on Thu01/27/22 at 0823, [...] PACU/Recovery documented in this encounter Care Teams Chaplain Resident Relationship Specialty Start Date End Date Cintia Cobb MD PCP - General Family Practice 09/30/21 documented as of this encounter
--- OUTSIDE RECORDS SUMMARY | 2022-08-12 09:39 | XMS_ITS | Encounter Summary ---
:1960 Author Organization [employer] Address [address] [place] [address] Care Team Providers Name Role Phone Cintia Cobb MD Primary Care Provider [phone] Reason for Visit Reason Comments QUESTIONS, GENERAL Encounter Details Date Type Department Care Team Description 01/28/2022 Telephone [facility] ANNI Cesar Champagne, QUESTIONS, GENERAL [address] [place], [place] [address] [address] [phone] [place] [phone] (Wo rk) Social History Tobacco Use [...] status and will work with Jackie at [facility] to assist in getting him his off [...] PM CDT ED had surgery yesterday at [facility]. He states he did not receive any information regarding his surgery, no paperwork, questions were not answered by staff. He is not happy and asked to speak to Lesli. documented in this encounter Plan of Treatment Upcoming Encounters Date Type Specialty Care Team Description 09/15/2022 Appointment Orthopedics Delgado Gottlieb MD [address] [place] [phone] (Gavi presley) 10/08/2022 Appointment Orthopedics Delgado Gottlieb MD [address] [place], [place] [address] (Gavi presley) 05/27/2023 Appointment Chemo Therapy/Infusion Services documented as of this encounter Visit Diagnoses Not on filedocumented in this encounter Care Teams User Experience Lead Relationship Specialty Start Date End Date Cintia Cobb MD PCP - General Family Practice 09/30/21 documented as of this encounter
--- OUTSIDE RECORDS SUMMARY | 2022-08-12 09:39 | XMS_ITS | Encounter Summary ---
:1960 Author Organization [facility] Address [address] [address] Care Team Providers Name Role Phone Cintia Cobb MD Primary Care Provider [phone] Reason for Visit Auth/Cert Specialty Diagnoses / Procedures Referred By Contact Refer red To Contact Diagnoses Lumbar stenosis with neurogenic claudication Procedures Bilateral Lumbar 2-Lumbar 4 Decompression Foraminotomy Referral ID Status Reason Start Date Expiration Date Visits Requ ested Visits Authorized [id number] 1 1 Encounter Details Date Type Department Care Team Description 01/27/2022 Anesthesia Event [employer] Katya Javier MD Room [address] [place] [id number] [phone] Anesthesia Record Procedure Summary Procedure Name Responsible [...] Electr onically signed by Abhay Salas APRN, SENIOR COURTROOM CLERK 1404 An Stop Care transferred . Name [...] Salas, HAKEEM, Time: 1217; Placed LUZMA PALACIO SENIOR COURTROOM CLERK By: SENIOR COURTROOM CLERK; Induction Type: Pre-O2, IV; Masking: Easy; ETT [...] Javier MD - 01/27/2022 2:47 PM CDT [facility] Anesthesia Post-op Note Patient: Ed J [...] Javier MD - 01/27/2022 11:07 AM CDT [facility] Anesthesia Pre-op Evaluation Procedure: Bilateral Lumbar [...] QT 466 ms QTc 480 ms R [place] -89 degrees T [place] 68 degrees Physical Exam: BP (!) 145/76 [...] benefits and alternatives discussed with: Patient or Accountant Auditor agree tothe anesthesia treatment plan. ANESTHESIA PREOP EVALUATION Ed Jim Luna is a 61 y.o. male who presents for Procedure(s): Bilateral Lumbar 2-Lumbar 4 Decompression Foraminotomy Plan is General with an endotracheal tube Pertinent risks, benefits, available alternatives, and the anesthetic plan were discussed with patient, family, and/or patient's fuels sales representative. All questions were answered and an understanding of our conversation was expressed. There was an agreement to proceed. The patient and/or their fuels sales representative were notified about the potential risks of damage to the lips, teeth, dental devices, mouth and airway. H&P Reviewed and Patient examined, no change observed IV access Antibiotics per surgery Electronically signed by: Efra Javier MD 01/27/2022 11:07 AM documented in this encounter Plan of Treatment Upcoming Encounters Date Type Specialty Care Team Description 09/15/2022 Appointment Orthopedics Delgado Gottlieb MD [address] [place] [phone] (Wo rk) 10/08/2022 Appointment Orthopedics Delgado Gottlieb MD [address] [place] [address] [phone] (Wo rk) 05/27/2023 Appointment Chemo [...] 1404 documented in this encounter Care Teams Body Component Engineer Relationship Specialty Start Date End Date Cintia Cobb MD PCP - General Family Practice 09/30/21 documented as of this encounter
--- OUTSIDE RECORDS SUMMARY | 2022-08-12 09:39 | XMS_ITS | Encounter Summary ---
:1960 Author Organization [facility] Center[facility] Address [address] [address] Care Team Providers Name Role Phone Cintia Cobb MD Primary Care Provider [phone] Reason for Visit Reason Comments QUESTIONS, GENERAL Encounter Details Date Type Department Care Team Description 01/29/2022 Telephone [facility] Cesar Champagne QUESTIONS, GENERAL (/) [address] [facility] MD [place], [place] [address] [address] [place] [address] [place] [address] Social History Tobacco Use Types Packs/Day [...] Pt is post Decomp-Foraminotomy L2-4 Bilat/DOS 01/27/22 Evangelical Pt was called and he states he [...] you been seen for this recently?: na [Filter Press Tender Head/Appt Center: If yes, please include date and provider.] Is it okay to leave detailed message on your voicemail? YES [Filter Press Tender Head/Appt Center: If this call is after 3 p.m., communicate to patient: If we are not able to get back to you by the end of the day and your symptoms worsen please contact the Careline] documented in this encounter Plan of Treatment Upcoming Encounters Date Type Specialty Care Team Description 09/15/2022 Appointment Orthopedics Delgado Gottlieb MD [address] [place] [phone] (Gavi presley) 10/08/2022 Appointment Orthopedics Delgado Gottlieb MD [address] [place] [phone] (Gavi rk) 05/27/2023 Appointment Chemo Therapy/Infusion Services documented as of this encounter Visit Diagnoses Not on filedocumented in this encounter Care Teams Mental Hygiene Consultant Relationship Specialty Start Date End Date Cintia Cobb MD PCP - General Family Practice 09/30/21 documented as of this encounter
--- OUTSIDE RECORDS SUMMARY | 2022-08-12 09:39 | XMS_ITS | Encounter Summary ---
:1960 Author Organization [facility] Address [address], [place] [address] Care Team Providers Name Role Phone Cintia Cobb MD Primary Care Provider [phone] Reason for Referral Procedure/Equipment (Routine) - Incomplete Specialty Diagnoses / Procedures Referred By Contact Refer red To Contact Diagnoses Diagnosis unknown Cesar Scherer MD Procedures FL C Arm [address] [facility] [address] [place], [place] [phone] Referral ID Status Reason Start Date Expiration Date Visits V isits Requested Authorized [id number] Incomplete 01/27/2022 04/28/2023 1 1 Reason for Visit Auth/Cert Specialty Diagnoses / Procedures Referred By Contact Refer red To Contact Diagnoses Lumbar stenosis with neurogenic claudication Procedures Bilateral Lumbar 2-Lumbar 4 Decompression Foraminotomy Referral ID Status Reason Start Date Expiration Date Visits Requ ested Visits Authorized [id number] 1 1 Encounter Details Date Type Department Care Team Description 01/27/2022 Hospital Encounter [facility] Cesar Scherer Diagnosis unknown [address] MD [place], [place] [address] [address] [place] [address] [place] [address] Social History Tobacco Use Types [...] 09/15/2022 Appointment Orthopedics Delgado Gottlieb MD [address] [place] [address] [phone] (Gavi rk) 10/08/2022 Appointment Orthopedics Delgado Gottlieb MD [address] [place] [address] [phone] (Wo rk) 05/27/2023 Appointment Chemo Therapy/Infusion [...] surg ical procedure. Cesar Scherer MD RAD CA documented in this encounter Visit Diagnoses Diagnosis Diagnosis unknown Other unknown and unspecified cause of m orbidity or mortality documented in this encounter Care Teams Word Processing Supervisor Relationship Specialty Start Date End Date Cintia Cobb MD PCP - General Family Practice 09/30/21 documented as of this encounter
--- OUTSIDE RECORDS SUMMARY | 2022-08-12 09:40 | XMS_ITS | Encounter Summary ---
:1960 Author Organization [facility] Address [address] [place] [address] Care Team Providers Name Role Phone Cintia Cobb MD Primary Care Provider [phone] Reason for Visit Procedure/Equipment (Routine) - Closed Specialty Diagnoses / Procedures Referred By Contact Refer red To Contact Diagnoses Low bone density Delgado Gottlieb MD Procedures DXA Bone Density Spine/Hip Inc Vert FX Assess Dxa Bone Density Spine/Hip/Forearm [address] [place] [address] Referral ID Status Reason Start Date Expiration Date Visits Requ ested Visits Authorized [id number] Closed 10/16/2021 01/15/2023 1 1 Encounter Details Date Type Department Care Team Description 12/20/2021 Ancillary Procedure [facility] Bone Density Low bone density [address] [place], [place] [address] Social History Tobacco Use Types Packs/Day Years [...] 09/15/2022 Appointment Orthopedics Delgado Gottlieb MD [address] [place], [place] [phone] (Gavi presley) 10/08/2022 Appointment Orthopedics Delgado Gottlieb MD [address] [place], [place] [address] (Gavi presley) 05/27/2023 Appointment [...] J Luna Densitometer:Hologic Discovery A (S/N 83 732) [facility] BONE 5 OSTEOPOROSIS RISK FACTORS FROM [...] bone density test (fi rst one at [facility]) VERTEBRAL FRACTURE ASSESSMENT: No vertebral [...] density documented in this encounter Care Teams Reconditioning Associate Relationship Specialty Start Date End Date Cintia Cobb MD PCP - General Family Practice 09/30/21 documented as of this encounter
--- OUTSIDE RECORDS SUMMARY | 2022-08-12 09:40 | XMS_ITS | Encounter Summary ---
:1960 Author Organization [employer] Address [address] [place] [address] Care Team Providers Name Role Phone Cintia Cobb MD Primary Care Provider [phone] Encounter Details Date Type Department Care Team Description 11/19/2021 Notes/Orders [facility] Cesar Champagne, [address] [place], [place] [address] [address] [address] [place] [address] (Gavi rk) Social History Tobacco [...] Description 09/15/2022 Appointment Orthopedics Delgado Gottlieb MD [address] [place] [phone] (Gavi rk) 10/08/2022 Appointment Orthopedics Delgado Gottlieb MD [address] [place] [phone] (Wo rk) 05/27/2023 Appointment Chemo Therapy/Infusion Services documented as of this encounter Visit Diagnoses Not on filedocumented in this encounter Care Teams Dispatcher Refinery Relationship Specialty Start Date End Date Cintia Cobb MD PCP - General Family Practice 09/30/21 documented as of this encounter
--- OUTSIDE RECORDS SUMMARY | 2022-08-12 09:40 | XMS_ITS | Encounter Summary ---
:1960 Author Organization [email or web address] Address [address] [place] [address] Care Team Providers Name Role Phone Cintia Cobb MD Primary Care Provider [phone] Reason for Visit Reason Comments LAB RESULTS Critical lab result Encounter Details Date Type Department Care Team Description 10/16/2021 Telephone Specialty Center [address] Delgado Gottlieb, LAB RESULTS (Critical Orthopedics Clinic lab result ) [address] [place] [address] [place], [place] [phone] Social History Tobacco Use Types Packs/Day Years [...] Patient notified of the approval of the [place] and to not go over 3000 mg of Tylenol a day as there is Tylenol in the [place]. He verbalized understanding. Rosetta Ye RN 10/23/2021, 11:50 AM ON BREAKER Rosetta Ye RN - 10/21/2021 9:00 AM CST [facility] at [phone] and follow the prompt for [facility] and ask to speak with one of the nurses. Letter sent Rosetta Ye RN 10/21/2021, 9:00 AM ON BREAKER Rosetta Ye RN - 10/18/2021 8:51 AM CST [facility] at [phone] and follow the prompt for [facility] and ask to speak with one of the nurses. Rosetta Ye RN 10/18/2021, 8:51 AM ON BREAKER Rosetta Ye RN - 10/17/2021 8:08 AM CST [facility] at [phone] and follow the prompt for [facility] and ask to speak with one of the nurses. Rosetta Ye RN 10/17/2021, 8:09 AM ON BREAKER Delgado Gottlieb MD - 10/16/2021 9:15 PM CST Thanks. [place] refill approved and sent to the patient's pharmacy. I discussed this with him today but please remind them that he cannot take Tylenol with the [place] because it has acetaminophen already in it. [...] well documented resistance to receiving blood products. ON BREAKER Rosetta Ye RN - 10/16/2021 3:37 PM [...] could get a script sent to the [facility] in [place]. Please advise. Thank you. Rosetta Ye RN 10/16/2021, 3:43 PM ON BREAKER Rosetta Ye RN - 10/16/2021 2:55 PM [...] be willing to start an iron tablet. [facility] at [phone] and follow the prompt for [facility] and ask to speak with one of the nurses. Rosetta Ye RN 10/16/2021, 3:12 PM ON BREAKER documented in this encounter Plan of Treatment Upcoming Encounters Date Type Specialty Care Team Description 09/15/2022 Appointment Orthopedics Delgado Gottlieb MD [address] [place], [place] [phone] (Wo rk) 10/08/2022 Appointment Orthopedics Delgado Gottlieb MD [address] [place] [address] [phone] (Wo rk) 05/27/2023 Appointment Chemo Therapy/Infusion Services documented as of this encounter Visit Diagnoses Not on filedocumented in this encounter Care Teams Insurance Manager Relationship Specialty Start Date End Date Cintia Cobb MD PCP - General Family Practice 09/30/21 documented as of this encounter
--- OUTSIDE RECORDS SUMMARY | 2022-08-12 09:40 | XMS_ITS | Encounter Summary ---
:1960 Author Organization [employer] Address [address] [place] [address] Care Team Providers Name Role Phone Cintia Cobb MD Primary Care Provider [phone] Reason for Referral Therapies (Routine) - New Request Specialty Diagnoses / Procedures Referred By Contact Refer red To Contact Diagnoses Closed fracture of distal end of left femur with routine healing, unspecified fracture morphology, subsequent encounter Delgado Gottlieb MD [address] [place] [address] Referral ID Status Reason Start Date Expiration Date Visits V isits Requested Authorized [id number] New Request 11/27/2021 11/27/2022 1 1 Scheduling [...] Procedures XR Femur Lt 2 Views [address] [place] [address] Referral ID Status Reason Start Date Expiration Date Visits V isits Requested Authorized [id number] Incomplete 11/27/2021 02/26/2023 1 1 RER PIE BAKERY Reason for Visit Reason Comments POST-OP,EXAM Encounter Details Date Type Department Care Team Description 11/27/2021 Office Visit Specialty Center Delgado Gottlieb, Domenica sed fracture of [address] [facility] MD distal end of left [address] [place] [address] [place], [place] healing, unspecified [phone] fracture morphology, subsequent enco unter (Work) (Primary [...] 10:20 AM CDT ORTHOPAEDICS DEPARTMENT PHONE NUMBER: [phone] Reason for today's visit: POST-OP,EXAM Treatment plan: [...] APPT NOTES ( ) [facility]: [address] [place] [address] ( ) [facility]: [address] [place], [place] ( ) Other: S/p ORIF/IMN supracondylar distal femur fx, DOS: 10/01/2021 ( ) [facility]: [address] [place] [address] ( ) [facility] [address] [place], [place] ( ) Other: If you have any questions about your visit, your symptoms, your medication, your test results or it is not clear what your diagnosis or treatment plan is please contact us at [phone] or send us a secure message via [employer]. You may receive a survey in the mail regarding your visit today. Your feedback is very important to us, please take a moment to complete the survey which is completely anonymous. If you would like to speak to someone specifically, you may contact the clinic at [phone] and your call will be directed to someone on our leadership team. Thank you for choosing Delgado Gottlieb MD and [facility]. Did you know, you can now reach us for appointment scheduling seven days a week, 365 days a year from 7am to 9pm? Just call our main number, , listen to the prompts and you will be connected to a insurance healthcare representative who can assist you with your [...] he is makingprogress. He does PT at [facility]. He uses the recumbent bicycle and the [...] not had a lot of swelling. 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 Delgado Gottlieb MD Manager Inventory Control [facility] Department of Orthopaedic Surgery [facility] documented in this encounter Plan of Treatment Upcoming Encounters Date Type Specialty Care Team Description 09/15/2022 Appointment Orthopedics Delgado Gottlieb MD [address] [place] [phone] (Gavi presley) 10/08/2022 Appointment Orthopedics Delgado Gottlieb MD [address] [place] [phone] (Gavi presley) 05/27/2023 Appointment Chemo Therapy/Infusion Services Scheduled Referrals Name Type Priority Associated Diagnoses Order S chedule PT - PHYSICAL THERAPY Referral Routine Closed fracture of distal Ordered: 11/27/2021 [[id number]] end of left femur with routine healing, [...] EXAM: XR FEMUR LT 2 VIEWS LOCATION: [place] [address] DATE/TIME: 11/27/2021 9:59 AM INDICATION: Open reduction [...] LOCATION: [facility] [address] DATE/TIME: 11/27/2021 9:59 AM INDICATION: [...] r documented in this encounter Care Teams Film Crew Member Relationship Specialty Start Date End Date Cintia Cobb MD PCP - General Family Practice 09/30/21 documented as of this encounter
--- OUTSIDE RECORDS SUMMARY | 2022-08-12 09:40 | XMS_ITS | Encounter Summary ---
:1960 Author Organization [facility] Address [address] [place] [address] Care Team Providers Name Role Phone Cintia Cobb MD Primary Care Provider [phone] Reason for Visit Reason Comments QUESTIONS, GENERAL Encounter Details Date Type Department Care Team Description 10/08/2021 Telephone Specialty Center [address] Delgado Gottlieb MD QUESTIONS, GENERAL Orthopedics Clinic [address] [place] [address] [place] [address] [phone] Social History Tobacco Use Types Packs/Day Years [...] basement. Rosetta Ye RN 10/08/2021, 3:24 PM MOUNTER documented in this encounter Plan of Treatment Upcoming Encounters Date Type Specialty Care Team Description 09/15/2022 Appointment Orthopedics Delgado Gottlieb MD [address] [place] [phone] (Gavi presley) 10/08/2022 Appointment Orthopedics Delgado Gottlieb MD [address] [place] [phone] (Gavi presley) 05/27/2023 Appointment Chemo Therapy/Infusion Services documented as of this encounter Visit Diagnoses Not on filedocumented in this encounter Care Teams Director Of Kids Relationship Specialty Start Date End Date Cintia Cobb MD PCP - General Family Practice 09/30/21 documented as of this encounter
--- OUTSIDE RECORDS SUMMARY | 2022-08-12 09:40 | XMS_ITS | Encounter Summary ---
:1960 Author Organization [facility] Address [address] [place] [address] Care Team Providers Name Role Phone Cintia Cobb MD Primary Care Provider [phone] Encounter Details Date Type Department Care Team Description 10/16/2021 Lab Visit [facility] 435 Low bone density Laboratory [address] [place] [address]. [place] [address] Social History Tobacco Use Types [...] 09/15/2022 Appointment Orthopedics Delgado Gottlieb MD [address] [place], [place] [address] (Gavi presley) 10/08/2022 Appointment Orthopedics Delgado Gottlieb MD [address] [place], [place] [address] (Gavi presley) 05/27/2023 Appointment Chemo Therapy/Infusion Services documented as of this encounter Procedures Procedure Name Priority Date/Time Associated Comments Diagnosis CBC AND DIFFERENTIAL Routine 10/16/2021 11:39 Low bone density Results for this PANEL AM POWER SWEEPER OPERATOR procedure are i n the results section. VITAMIN D 25-HYDROXY, Routine 10/16/2021 11:39 Low bone densit y Results for this TOTAL AM POWER SWEEPER OPERATOR procedure are i n the results section. INTACT PTH Routine 10/16/2021 11:39 Low bone density Results for this AM POWER SWEEPER OPERATOR procedure are i n the results section. COMPLETE BLOOD Routine 10/16/2021 11:39 Low bone density Resul ts for this COUNT-W/DIFF AM POWER SWEEPER OPERATOR procedure are i n the results section. COMP METABOLIC PANEL Routine 10/16/2021 11:39 Low bone density Results for this AM POWER SWEEPER OPERATOR procedure are i n the results section. TSH, SENSITIVE Routine 10/16/2021 11:39 Low bone density Resul ts for this AM POWER SWEEPER OPERATOR procedure are i n the results section. documented in this encounter Results (ABNORMAL) Complete Blood Count-W/Diff (10/16/2021 11:39 AM POWER SWEEPER OPERATOR) Analysis Performed At Patho logist Time Signature WBC 8.3 3.5 - 10.5 10/16/2021 [facility] x10(9)/L 2:52 PM [facility] RBC 2.49 (L) 4.32 - 10/16/2021 [facility] 5.72 2:52 PM [facility] x10(12)/L Hemoglobin 5.9 (LL) 13.5 - 10/16/2021 [facility] 17.5 g/dL 2:52 PM [facility] HCT 21.7 (L) 38.8 - 10/16/2021 [facility] 50.0 % 2:52 PM [facility] MCV 87.1 80.0 - 10/16/2021 [facility] 100.0 fL 2:52 PM [facility] MCH 23.7 (L) 27.6 - 10/16/2021 [facility] 33.3 pg 2:52 PM [facility] MCHC 27.2 (L) 31.5 - 10/16/2021 [facility] 35.2 g/dL 2:52 PM [facility] RDW 20.4 (H) 11.9 - 10/16/2021 [facility] 15.5 % 2:52 PM [facility] Platelets 305 150 - 450 10/16/2021 [facility] x10(9)/L 2:52 PM [facility] Automated NRBC 0 <=0 /100 10/16/2021 [facility] WBC 2:52 PM [facility] Neutrophil 6.8 1.7 - 7.0 10/16/2021 [facility] Absolute 10(9)/L 2:52 PM [facility] Lymphocyte 0.9 (L) 1.0 - 4.8 10/16/2021 [facility] Absolute 10(9)/L 2:52 PM [facility] Monocytes 0.5 0.2 - 0.9 10/16/2021 [facility] Absolute 10(9)/L 2:52 PM [facility] Eosinophil 0.1 0.0 - 0.5 10/16/2021 [facility] Absolute 10(9)/L 2:52 PM [facility] Basophil 0.0 0.0 - 0.3 10/16/2021 [facility] Absolute 10(9)/L 2:52 PM [facility] Immature Gran % 1.0 (H) 0.0 - 0.5 10/16/2021 [facility] % 2:52 PM POWER SWEEPER OPERATOR HOSPITAL Specimen Anatomical Collection Method / Collection Time Recei shahid Time (Source) Location / Volume Laterality Blood Venipuncture / 10/16/2021 11:39 2 Unknown AM POWER SWEEPER OPERATOR 11:39 AM POWER SWEEPER OPERATOR Delgado Gottlieb MD LAB_1 Performing Organization Address City/State/ZIP Code Phon e Number [address] [address] VITAMIN D 25-HYDROXY, TOTAL (V77.99) (10/16/2021 11:39 AM POWER SWEEPER OPERATOR) [facility] Method Time Signature Vitamin D, 69 30 - 80 10/16/2021 [facility] 25-OH, Total ng/mL 3:06 PM POWER SWEEPER OPERATOR CENTRAL LAB Specimen Anatomical Collection Method / Collection Time Recei shahid Time (Source) Location / Volume Laterality Blood Venipuncture / 10/16/2021 11:39 2 Unknown AM POWER SWEEPER OPERATOR 11:39 AM POWER SWEEPER OPERATOR Delgado Gottlieb MD LAB_1 Performing Organization Address City/State/ZIP Code Phon e Number [facility] CENTRAL LAB [address] [address] TSH, SENSITIVE (10/16/2021 11:39 AM POWER SWEEPER OPERATOR) [facility] Method Time Signature TSH, Sensitive 1.10 0.30 - 10/16/2021 [facility] 4.50 3:10 PM POWER SWEEPER OPERATOR CENTRAL LAB uIU/mL Specimen Anatomical Collection Method / Collection Time Recei shahid Time (Source) Location / Volume Laterality Blood Venipuncture / 10/16/2021 11:39 2 Unknown AM POWER SWEEPER OPERATOR 11:39 AM POWER SWEEPER OPERATOR Delgado Gottlieb MD LAB_1 Performing Organization Address City/[facility]/ZIP Code Phon e Number [facility] CENTRAL LAB [address] [address] (ABNORMAL) Intact PTH (10/16/2021 11:39 AM POWER SWEEPER OPERATOR) athologist Signature Intact PTH 107 (H) 10 - 100 10/16/2021 [facility] pg/mL 2:37 PM [facility] Specimen Anatomical Collection Method / Collection Time Recei shahid Time (Source) Location / Volume Laterality Blood Venipuncture / 10/16/2021 11:39 2 Unknown AM POWER SWEEPER OPERATOR 11:39 AM POWER SWEEPER OPERATOR Delgado Gottlieb MD LAB_1 Performing Organization Address City/State/ZIP Code Phon e Number [address] [address] (ABNORMAL) Comp Metabolic Panel (10/16/2021 11:39 AM POWER SWEEPER OPERATOR) [facility] Method Time Signature Sodium 138 136 - 145 10/16/2021 [facility] mmol/L 2:58 PM POWER SWEEPER OPERATOR CENTRAL LAB Potassium 4.7 3.5 - 5.1 10/16/2021 [facility] mmol/L 2:58 PM POWER SWEEPER OPERATOR CENTRAL LAB Chloride 107 98 - 109 10/16/2021 [facility] mmol/L 2:58 PM POWER SWEEPER OPERATOR CENTRAL LAB CO2 21 20 - 29 10/16/2021 [facility] mmol/L 2:58 PM POWER SWEEPER OPERATOR CENTRAL LAB Anion Gap 10 7 - 16 10/16/2021 [facility] mmol/L 2:58 PM POWER SWEEPER OPERATOR CENTRAL LAB Calcium 9.0 8.4 - 10/16/2021 [facility] 10.4 2:58 PM POWER SWEEPER OPERATOR CENTRAL LAB mg/dL BUN 26 7 - 26 10/16/2021 [facility] mg/dL 2:58 PM POWER SWEEPER OPERATOR CENTRAL LAB Creatinine 1.08 0.73 - 10/16/2021 [facility] 1.18 2:58 PM POWER SWEEPER OPERATOR CENTRAL LAB mg/dL GFR, Estimated >60 >60 10/16/2021 [facility] mL/min/1. 2:58 PM POWER SWEEPER OPERATOR CENTRAL LAB 73m2 Alkaline 79 40 - 150 10/16/2021 [facility] Phosphatase U/L 2:58 PM POWER SWEEPER OPERATOR CENTRAL LAB AST (SGOT) 12 10 - 40 10/16/2021 [facility] U/L 2:58 PM POWER SWEEPER OPERATOR CENTRAL LAB ALT (SGPT) 11 0 - 55 10/16/2021 [facility] U/L 2:58 PM POWER SWEEPER OPERATOR CENTRAL LAB Bilirubin, 0.5 0.2 - 1.2 10/16/2021 [facility] Total mg/dL 2:58 PM POWER SWEEPER OPERATOR CENTRAL LAB Protein, Total 6.1 (L) 6.4 - 8.3 10/16/2021 [facility] g/dL 2:58 PM POWER SWEEPER OPERATOR CENTRAL LAB Albumin 3.4 (L) 3.5 - 5.0 10/16/2021 [facility] g/dL 2:58 PM POWER SWEEPER OPERATOR CENTRAL LAB Glucose 110 (H) 70 - 100 10/16/2021 [facility] mg/dL 2:58 PM POWER SWEEPER OPERATOR CENTRAL LAB Comment: The given reference range is fo r the fasting state. Non-fasting reference range for glucose is 70 - 180 mg/dL. Hours Fasting 4 10/16/2021 2:58 PM POWER SWEEPER OPERATOR [facility] 435 LABORATORY Specimen Anatomical Collection Method / Collection Time Recei shahid Time (Source) Location / Volume Laterality Blood Venipuncture / 10/16/2021 11:39 2 Unknown AM POWER SWEEPER OPERATOR 11:39 AM POWER SWEEPER OPERATOR Delgado Gottlieb MD LAB_1 Performing Organization Address City/State/ZIP Code Phon e Number [facility] CENTRAL LAB [address] 435 LABORATORY documented in this encounter Visit Diagnoses Diagnosis Low bone density documented in this encounter Care Teams Netsuite Developer Relationship Specialty Start Date End Date Cintia Cobb MD PCP - General Family Practice 09/30/21 documented as of this encounter
--- OUTSIDE RECORDS SUMMARY | 2022-08-12 09:40 | XMS_ITS | Encounter Summary ---
:1960 [facility] Address [address] [place] [address] Care Team Providers Name Role Phone Cintia Cobb MD Primary Care Provider [phone] Reason for Visit Reason Comments QUESTIONS, GENERAL Encounter Details Date Type Department Care Team Description 10/14/2021 Telephone Specialty Center 435 Delgado Gottlieb MD QUESTIONS, GENERAL Orthopedics Clinic [address] [place] [address] [place] [address] [phone] Social History Tobacco Use Types Packs/Day Years [...] maybe had 4 total in the hospital. [id number] mg arthritis strength BID and ibuprofen 400 [...] clinic appt on 10/16/21. 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 Jenniffer Carpenter RN 10/14/2021, 10:57 AM Jenni An - 10/14/2021 10:47 AM CST Ed called wanting to speak with Rosetta. He stated that it was urgent and need to speak with her JEY.Map Compiler had asked what it was regarding and patient had hung up the call. Ed also stated prior to thecall was disconnected that his phone does not incoming calls. Map Compiler was unable to get the best callback number. Please advise. Jenni Sanchez 10/14/2021, 10:49 AM MOBILE DAMAGE FIELD APPRAISER documented in this encounter Plan of Treatment Upcoming Encounters Date Type Specialty Care Team Description 09/15/2022 Appointment Orthopedics Delgado Gottlieb MD [address] [place] [phone] (Wo rk) 10/08/2022 Appointment Orthopedics Delgado Gottlieb MD 435 [place], [place] [address] (Wo rk) 05/27/2023 Appointment Chemo Therapy/Infusion Services documented as of this encounter Visit Diagnoses Not on filedocumented in this encounter Care Teams Cutting Machine Offbearer Relationship Specialty Start Date End Date Cintia Cobb MD PCP - General Family Practice 09/30/21 documented as of this encounter
--- OUTSIDE RECORDS SUMMARY | 2022-08-12 09:40 | XMS_ITS | Encounter Summary ---
:1960 Author Organization [facility] Address [address] [place] [address] Care Team Providers Name Role Phone Cintia Cobb MD Primary Care Provider [phone] Reason for Referral Consult/Transfer Care (Routine) - New Request Specialty Diagnoses / Procedures Referred By Contact Refer red To Contact Diagnoses Low bone density Delgado Gottlieb MD [address] [place] [address] Referral ID Status Reason Start Date Expiration Date Visits V isits Requested Authorized [id number] New Request 10/16/2021 01/15/2023 1 1 Scheduling Instructions Your provider has recommended an appoint ment with [facility]. You can quickly make your appointment online at [employer]/schedule. You can also call [phone] for help scheduling yo ur appointment. We suggest you call your health insurance company about your cove rage and benefits for this appointment. MAINTENANCE TECHNICIAN Procedure/Equipment (Routine) - Incomplete Specialty Diagnoses / Procedures Referred By Contact Refer red To Contact Diagnoses Closed fracture of distal end of left femur with routine healing, unspecified fracture morphology, subsequent encounter Delgado Gottlieb MD Procedures XR Femur Lt 2 Views [address] [place] [address] Referral ID Status Reason Start Date Expiration Date Visits V isits Requested Authorized [id number] Incomplete 10/16/2021 01/15/2023 1 1 MAINTENANCE TECHNICIAN Reason for Visit Reason Comments POST-OP,EXAM Consult/Transfer Care (Routine) - New Request Specialty Diagnoses / Procedures Referred By Contact Refer red To Contact Diagnoses Closed fracture of distal end of left femur, unspecified fracture morphology, initial encounter ([facility]) Suzie Daigle PA-C [address] [place] [address] Referral ID Status Reason Start Date Expiration Date Visits V isits Requested Authorized [id number] New Request 10/02/2021 01/01/2023 1 1 Encounter Details Date Type Department Care Team Description 10/16/2021 Office Visit Specialty Center Delgado Gottlieb, Domenica bell fracture of distal end of left femur with routine healing, unspecified fracture morphology, subsequent encounter (Primary Dx); 435 Orthopedics Clin ic Low bone density [address] [place] [address] [place], [place] [phone] [id number] Social History Tobacco Use Types Packs/Day Years [...] 10:20 AM CST ORTHOPAEDICS DEPARTMENT PHONE NUMBER: [phone] Reason for today's visit: POST-OP,EXAM Treatment plan: [...] You can get them done at any Critical access hospital lab. Call [phone] to schedule a DEXA Scan to see how strong your bones are. [facility] will be contacting you to schedule a Bone Health Consultwith them, or you can call [phone], to discuss the results of your bone health screening and any treatments that you may need. This can be done in person or via a video visit using the [employer] jannie. [place] were removed today, and steri-strips applied. Leave [...] taken with your next Orthopaedics appointment. Please jehhac14 minutes early for your appointment. Reason for next Orthopaedics appointment: Post op ORIF/IMN supracondylar distal femur fx DOS: 10/01/2021 Please stop at the check out desk to schedule a follow up appointment. Use this grid to write down your next appointment. DATE & TIME PROVIDER LOCATION APPT NOTES ( ) [facility]: [address] [place] [address] ( ) [facility]: [address] [place], [place] ( ) Other: Post op ORIF/IMN supracondylar distal femur fx DOS: 10/01/2021 ( ) [facility]: [address] [place] [address] ( ) [facility] [address] [place], [place] ( ) Other: If you have any questions about your visit, your symptoms, your medication, your test results or it is not clear what your diagnosis or treatment plan is please contact us at [phone] or send us a secure message via [employer]. You may receive a survey in the mail regarding your visit today. Your feedback is very important to us, please take a moment to complete the survey which is completely anonymous. If you would like to speak to someone specifically, you may contact the clinic at [phone] and your call will be directed to someone on our leadership team. Thank you for choosing Delgado Gottlieb MD and [facility]. Did you know, you can now reach us for appointment scheduling seven days a week, 365 days a year from 7am to 9pm? Just call our main number, , listen to the prompts and you will be connected to a sales training representative who can assist you with your appointment scheduling needs. MAINTENANCE TECHNICIAN documented in this encounter Progress Notes Delgado [...] week in his local area at a [facility]. He notes that he was told he would get exercises by the inpatient PT at [facility], though never received these. 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 Delgado Gottlieb MD Brick [facility] Department of Orthopaedic Surgery [facility] ADDENDUM: The patient's bone health labs [...] if he develops any symptoms of anemia. MAINTENANCE TECHNICIAN documented in this encounter Plan of Treatment Upcoming Encounters Date Type Specialty Care Team Description 09/15/2022 Appointment Orthopedics Delgado Gottlieb MD [address] [place], [place] [id number] (Wo rk) 10/08/2022 Appointment Orthopedics Delgado Gottlieb MD [address] [place], [place] [address] (Wo rk) 05/27/2023 Appointment Chemo Therapy/Infusion Services Scheduled Referrals Name Type Priority Associated Diagnoses Order S chedule Osteoporosis-Orthopedics Referral Routine Low bone density Ordered: 10/16/2021 [[id number]] documented as of this encounter Results VITAMIN D 25-HYDROXY, TOTAL (V77.99) (10/16/2021 11:39 AM DIE MAINTENANCE TECHNICIAN) [facility] Method Time Signature Vitamin D, 69 30 - 80 10/16/2021 [facility] 25-OH, Total ng/mL 3:06 PM DIE MAINTENANCE TECHNICIAN CENTRAL LAB Specimen Anatomical Collection Method / Collection Time Recei shahid Time (Source) Location / Volume Laterality Blood Venipuncture / 10/16/2021 11:39 2 Unknown AM DIE MAINTENANCE TECHNICIAN 11:39 AM DIE MAINTENANCE TECHNICIAN Delgado Gottlieb MD LAB_1 Performing Organization Address [facility] Phon e Number [email or web address] CENTRAL LAB [address] [address] TSH, SENSITIVE (10/16/2021 11:39 AM DIE MAINTENANCE TECHNICIAN) [facility] Method Time Signature TSH, Sensitive 1.10 0.30 - 10/16/2021 [facility] 4.50 3:10 PM DIE MAINTENANCE TECHNICIAN CENTRAL LAB uIU/mL Specimen Anatomical Collection Method / Collection Time Recei shahid Time (Source) Location / Volume Laterality Blood Venipuncture / 10/16/2021 11:39 2 Unknown AM DIE MAINTENANCE TECHNICIAN 11:39 AM DIE MAINTENANCE TECHNICIAN Delgado Gottlieb MD LAB_1 Performing Organization Address [facility] Phon e Number [email or web address] C[facility] LAB [address] [address] (ABNORMAL) Intact PTH (10/16/2021 11:39 AM DIE MAINTENANCE TECHNICIAN) P athologist Signature Intact PTH 107 (H) 10 - 100 10/16/2021 [facility] pg/mL 2:37 PM DIE MAINTENANCE TECHNICIAN HOSPITAL Specimen Anatomical Collection Method / Collection Time Recei shahid Time (Source) Location / Volume Laterality Blood Venipuncture / 10/16/2021 11:39 2 Unknown AM DIE MAINTENANCE TECHNICIAN 11:39 AM DIE MAINTENANCE TECHNICIAN Delgado Gottlieb MD LAB_1 Performing Organization Address City/State/[place] [address] (ABNORMAL) Comp Metabolic Panel (10/16/2021 11:39 AM DIE MAINTENANCE TECHNICIAN) [facility] Method Time Signature Sodium 138 136 - 145 10/16/2021 [email or web address] mmol/L 2:58 PM DIE MAINTENANCE TECHNICIAN CENTRAL LAB Potassium 4.7 3.5 - 5.1 10/16/2021 [facility] mmol/L 2:58 PM DIE MAINTENANCE TECHNICIAN CENTRAL LAB Chloride 107 98 - 109 10/16/2021 [email or web address] mmol/L 2:58 PM DIE MAINTENANCE TECHNICIAN CENTRAL LAB CO2 21 20 - 29 10/16/2021 [facility] mmol/L 2:58 PM DIE MAINTENANCE TECHNICIAN CENTRAL LAB Anion Gap 10 7 - 16 10/16/2021 [email or web address] mmol/L 2:58 PM DIE MAINTENANCE TECHNICIAN CENTRAL LAB Calcium 9.0 8.4 - 10/16/2021 [facility] 10.4 2:58 PM DIE MAINTENANCE TECHNICIAN CENTRAL LAB mg/dL BUN 26 7 - 26 10/16/2021 [email or web address] mg/dL 2:58 PM DIE MAINTENANCE TECHNICIAN CENTRAL LAB Creatinine 1.08 0.73 - 10/16/2021 [facility] 1.18 2:58 PM DIE MAINTENANCE TECHNICIAN CENTRAL LAB mg/dL GFR, Estimated >60 >60 10/16/2021 [facility] mL/min/1. 2:58 PM DIE MAINTENANCE TECHNICIAN CENTRAL LAB 73m2 Alkaline 79 40 - 150 10/16/2021 [email or web address] Phosphatase U/L 2:58 PM DIE MAINTENANCE TECHNICIAN CENTRAL LAB AST (SGOT) 12 10 - 40 10/16/2021 [email or web address] U/L 2:58 PM DIE MAINTENANCE TECHNICIAN CENTRAL LAB ALT (SGPT) 11 0 - 55 10/16/2021 [email or web address] U/L 2:58 PM DIE MAINTENANCE TECHNICIAN CENTRAL LAB Bilirubin, 0.5 0.2 - 1.2 10/16/2021 [email or web address] Total mg/dL 2:58 PM DIE MAINTENANCE TECHNICIAN CENTRAL LAB Protein, Total 6.1 (L) 6.4 - 8.3 10/16/2021 [facility] g/dL 2:58 PM DIE MAINTENANCE TECHNICIAN CENTRAL LAB Albumin 3.4 (L) 3.5 - 5.0 10/16/2021 [facility] g/dL 2:58 PM DIE MAINTENANCE TECHNICIAN CENTRAL LAB Glucose 110 (H) 70 - 100 10/16/2021 [facility] mg/dL 2:58 PM DIE MAINTENANCE TECHNICIAN CENTRAL LAB Comment: The given reference range is fo r the fasting state. Non-fasting reference range for glucose is 70 - 180 mg/dL. Hours Fasting 4 10/16/2021 2:58 PM DIE MAINTENANCE TECHNICIAN [facility] 435 LABORATORY Specimen Anatomical Collection Method / Collection Time Recei shahid Time (Source) Location / Volume Laterality Blood Venipuncture / 10/16/2021 11:39 2 Unknown AM DIE MAINTENANCE TECHNICIAN 11:39 AM DIE MAINTENANCE TECHNICIAN Delgado Gottlieb MD LAB_1 Performing Organization Address City/State/ZIP Code Phon e Number [facility] CENTRAL LAB [address] 435 LABORATORY XR Femur Lt 2 Views (10/16/2021 10:01 AM DIE MAINTENANCE TECHNICIAN) Anatomical Region Laterality Modality Lower Extremity, Leg, Thigh Computed Rad iography Specimen (Source) Anatomical Collection Method Collection Time Re ceived Time Location / / Volume Laterality 10/16/2021 10:01 AM DIE MAINTENANCE TECHNICIAN Narrative 10/16/2021 2:21 PM DIE MAINTENANCE TECHNICIAN EXAM: XR FEMUR LT 2 VIEWS LOCATION: [place] [address] DATE/TIME: 10/16/2021 10:01 AM INDICATION: Open reduction [...] bone density [facility] Aftercare [facility], NEC documented in this encounter Care Teams Head Of Digital Advertising & Integration Relationship Specialty Start Date End Date Cintia Cobb MD PCP - General Family Practice 09/30/21 documented as of this encounter
--- OUTSIDE RECORDS SUMMARY | 2022-08-12 09:40 | XMS_ITS | Encounter Summary ---
:1960 Author Organization [email or web address] Address [address] [place] [address] Care Team Providers Name Role Phone Cintia Cobb MD Primary Care Provider [phone] Reason for Visit Reason Comments QUESTIONS, GENERAL Encounter Details Date Type Department Care Team Description 12/23/2021 Telephone [facility] Cesar Champagne, QUESTIONS, GENERAL [address] [place], [place] [address] [phone] [phone] [place] [phone] (Wo rk) Social History Tobacco Use [...] if any retention or incontinence increases. Ita Mcak PA-C 4:22 PM 12/23/2021 Nathalia Stokes RN [...] from the nurse. Declined to give to securities underwriter to put in the message. Patient does not have voicemail. documented in this encounter Plan of Treatment Upcoming Encounters Date Type Specialty Care Team Description 09/15/2022 Appointment Orthopedics Delgado Gottlieb MD [address] [place], [place] [address] (Gavi rk) 10/08/2022 Appointment Orthopedics Delgado Gottlieb MD [address] [place], [place] [address] (Gavi presley) 05/27/2023 Appointment Chemo Therapy/Infusion Services documented as of this encounter Visit Diagnoses Not on filedocumented in this encounter Care Teams Car And Yard Supervisor Relationship Specialty Start Date End Date Cintia Cobb MD PCP - General Family Practice 09/30/21 documented as of this encounter
--- OUTSIDE RECORDS SUMMARY | 2022-08-12 09:40 | XMS_ITS | Encounter Summary ---
:1960 Author Organization [facility] Address [address] [place] [address] Care Team Providers Name Role Phone Cintia Cobb MD Primary Care Provider [phone] Reason for Visit Reason Comments QUESTIONS, GENERAL Encounter Details Date Type Department Care Team Description 10/23/2021 Telephone Specialty Center [address] Delgado Gottlieb MD QUESTIONS, GENERAL Orthopedics Clinic [address] [place] [address] [place] [address] [phone] Social History Tobacco Use Types Packs/Day Years [...] information. Jenniffer Carpenter RN 10/23/2021, 12:31 PM OR MACHINE PASTER Delgado Gottlieb MD - 10/23/2021 12:03 PM CST Methocarbamol refill approved. Thanks. OR MACHINE PASTER Rosetta Ye RN - 10/23/2021 11:33 AM CST I spoke with Dr Gottlieb regarding patients request. He is approving to be off work through 12/29/2021.Letter has been written and patient notified. Letter placed at senior front end developer of third floor check in, per patient request. Date of Surgery: 10/01/2021 ORIF of left supracondylar distal femur fracture, utilizing both plate and nail fixation Patient is also requesting a refill of the robaxin. Last refill on 10/02/2021 for 30 tabs. Please advise. Thank you. Rosetta Ye RN 10/23/2021, 11:45 AM OR MACHINE PASTER Rosetta Ye RN - 10/23/2021 11:20 AM CST I spoke with Ed who states that he needs a letter for his insurance stating his injury and about howlong he would be off work. He would like to be able to pick this up today since we are not able to do email. Rosetta eY RN 10/23/2021, 11:21 AM OR MACHINE PASTER Nory Krishna - 10/23/2021 11:04 AM CST Has the patient recently had surgery or an injury? No How may we help you today? Patient decline to disclose any information. Nory Padilla Mai 10/23/2021, 11:06 AM OR MACHINE PASTER documented in this encounter Plan of Treatment Upcoming Encounters Date Type Specialty Care Team Description 09/15/2022 Appointment Orthopedics Delgado Gottlieb MD [address] [place], [place] [address] (Wo rk) 10/08/2022 Appointment Orthopedics Delgado Gottlieb MD [address] [place], [place] [address] (Gavi rk) 05/27/2023 Appointment Chemo Therapy/Infusion Services documented as of this encounter Visit Diagnoses Not on filedocumented in this encounter Care Teams Gun Repair Clerk Relationship Specialty Start Date End Date Cintia Cobb MD PCP - General Family Practice 09/30/21 documented as of this encounter
--- OUTSIDE RECORDS SUMMARY | 2022-08-12 09:40 | XMS_ITS | Encounter Summary ---
:1960 Author Organization [facility] Address [address] [place] [address] Care Team Providers Name Role Phone Cintia Cobb MD Primary Care Provider [phone] Reason for Visit Reason Comments OSTEOPOROSIS Consult/Transfer Care (Routine) - New Request Specialty Diagnoses / Procedures Referred By Contact Refer red To Contact Diagnoses Low bone density Delgado Gottlieb MD [address] [place] [address] Referral ID Status Reason Start Date Expiration Date Visits V isits Requested Authorized [id number] New Request 10/16/2021 01/15/2023 1 1 Encounter Details Date Type Department Care Team Description 01/08/2022 Office Visit [facility]ada[facility] with [address] [place] [address] current pathological [place], [place] [address] [place], [place] fracture, initial [phone] [id number] encounter (Primary [phone] (Wo rk) Dx) Social History Tobacco Use [...] you contact your insurance to verify your iva-xq-bckwgk expense for all medications, as it may [...] daily through food and supplements. Vitamin D: [phone] IU daily Exercise Aerobic Exercise: Work your [...] ice pack on the infusionsite or taking bkpv-nts-rrilosx pain relievers such as acetaminophen as detailed [...] Treatment History Fosamax- years ago prescribed through [facility] History The patient [...] baseline bone density test (first one at [facility]) ?? VERTEBRAL FRACTURE ASSESSMENT: No vertebral [...] the disease with the patient.The patient meets [facility] criteria for the clinical diagnosis of osteoporosis [...] 09/15/2022 Appointment Orthopedics Delgado Gottlieb MD [address] [place], [place] [address] (Wo rk) 10/08/2022 Appointment Orthopedics Delgado Gottlieb MD [address] [place] [phone] (Wo rk) 05/27/2023 Appointment Chemo Therapy/Infusion Services documented as of this encounter Visit Diagnoses Diagnosis Age-related osteoporosis with current pa thological fracture, initial encounter - Primary documented in this encounter Care Teams Curb Builder Relationship Specialty Start Date End Date Cintia Cobb MD PCP - General Family Practice 09/30/21 documented as of this encounter
--- OUTSIDE RECORDS SUMMARY | 2022-08-12 09:40 | XMS_ITS | Encounter Summary ---
:1960 Author Organization [facility] Address [address] [place] [address] Care Team Providers Name Role Phone Cintia Cobb MD Primary Care Provider [phone] Reason for Visit Reason Comments QUESTIONS, GENERAL Encounter Details Date Type Department Care Team Description 01/03/2022 Telephone [facility]NI Cesar Champagne, QUESTIONS, GENERAL [address] [place], [place] [address] [address] [phone] [place] [phone] (Wo rk) Social History Tobacco Use [...] leave detailed message on your voicemail? No [School Bus Dispatcher/Appt Center: If this call is after 3 p.m., communicate to patient: If we are not able to get back to you by the end of the day and your symptoms worsen please contact the Careline] documented in this encounter Plan of Treatment Upcoming Encounters Date Type Specialty Care Team Description 09/15/2022 Appointment Orthopedics Delgado Gottlieb MD [address] [place], [place] [address] (Gavi presley) 10/08/2022 Appointment Orthopedics Delgado Gottlieb MD [address] [place], [place] [address] (Gavi presley) 05/27/2023 Appointment Chemo Therapy/Infusion Services documented as of this encounter Visit Diagnoses Not on filedocumented in this encounter Care Teams Molder Operator Relationship Specialty Start Date End Date Cintia Cobb MD PCP - General Family Practice 09/30/21 documented as of this encounter
--- OUTSIDE RECORDS SUMMARY | 2022-08-12 09:40 | XMS_ITS | Encounter Summary ---
:1960 Author Organization [facility] Address [address] [place] [address] Care Team Providers Name Role Phone Cintia Cobb MD Primary Care Provider Reason for Visit Procedure/Equipment (Routine) - Incomplete Specialty Diagnoses / Procedures Referred By Contact Refer red To Contact Diagnoses Closed fracture of distal end of left femur with routine healing, unspecified fracture morphology, subsequent encounter Delgado Gottlieb MD Procedures XR Femur Lt [address] [place] [address] Referral ID Status Reason Start Date Expiration Date Visits V isits Requested Authorized [id number] Incomplete 11/27/2021 02/26/2023 1 1 Encounter Details Date Type Department Care Team Description 11/27/2021 [facility]illary [facility] Closed frac ture of Procedure Specialty Center Donnell Murray MD distal end of left Radiology [address] femur with routine [address] healing, [place] [address] [place], [place] unspecified [phone] fracture [phone] morphology, (Work) subsequent [phone] encounter (Fax) Social History Tobacco Use Types [...] 09/15/2022 Appointment Orthopedics Delgado Gottlieb MD [address] [place], [place] [address] (Wo rk) 10/08/2022 Appointment Orthopedics Delgado Gottlieb MD [address] [place], [place] [address] (Wo rk) 05/27/2023 Appointment [...] EXAM: XR FEMUR LT 2 VIEWS LOCATION: [facility] 435 DATE/TIME: 11/27/2021 9:59 AM [...] EXAM: XR FEMUR LT 2 VIEWS LOCATION: [facility] 435 DATE/TIME: 11/27/2021 9:59 AM [...] r documented in this encounter Care Teams Counseling Psychologist Relationship Specialty Start Date End Date Cintia Cobb MD PCP - General Family Practice 09/30/21 documented as of this encounter
--- OUTSIDE RECORDS SUMMARY | 2022-08-12 09:40 | XMS_ITS | Encounter Summary ---
:1960 Author Organization [facility] Address [address] [place] [address] Care Team Providers Name Role Phone Cintia Cobb MD Primary Care Provider [phone] Reason for Visit Reason Comments QUESTIONS, GENERAL Encounter Details Date Type Department Care Team Description 11/06/2021 Telephone Specialty Center [address] Delgado Gottlieb MD QUESTIONS, GENERAL Orthopedics Clinic [address] [place] [address] [place] [address] [phone] Social History Tobacco Use Types Packs/Day Years [...] Parker RN - 11/07/2021 10:04 AM CST [facility] at [phone] and follow the prompt for [facility] and [...] you. Rosetta Ye RN 11/06/2021, 4:24 PM NEERING MATHEMATICIAN Davin Diggs - 11/06/2021 3:32 PM CST Pt would like a call back from the care team. He wouldn't give any information on this and states that he will be by his phone for the next 5 minutes. Please call to advise. NEERING MATHEMATICIAN Mary Acosta - 11/06/2021 3:30 PM CST Patient said he wants Rosetta to call him back today. He said not tomorrow, not next month, but today. When asked the reason for his call he stated it is personal. He insisted to be put thru to Rosetta and designer writer indicated she is not available and would call him back. He said he would hold and designer writer said he would get a call back. Casing Tier repeated this three times. Mary Acosta 11/06/2021, 3:32 PM NEERING MATHEMATICIAN documented in this encounter Plan of Treatment Upcoming Encounters Date Type Specialty Care Team Description 09/15/2022 Appointment Orthopedics Delgado Gottlieb MD [address] [place] [phone] (Gavi presley) 10/08/2022 Appointment Orthopedics Delgado Gottlieb MD [address] [place] [phone] (Gavi presley) 05/27/2023 Appointment Chemo Therapy/Infusion Services documented as of this encounter Visit Diagnoses Not on filedocumented in this encounter Care Teams Analytical Manager Relationship Specialty Start Date End Date Cintia Cobb MD PCP - General Family Practice 09/30/21 documented as of this encounter
--- OUTSIDE RECORDS SUMMARY | 2022-08-12 09:40 | XMS_ITS | Encounter Summary ---
:1960 Author Organization [facility] Address [address] [place] [address] Care Team Providers Name Role Phone Cintia Cobb MD Primary Care Provider [phone] Reason for Visit Reason Comments QUESTIONS, GENERAL Encounter Details Date Type Department Care Team Description 12/12/2021 Telephone Specialty Center [address] Delgado Gottlieb MD QUESTIONS, GENERAL Orthopedics Clinic [address] [place] [address] [place] [address] [phone] Social History Tobacco Use Types Packs/Day Years [...] days. He was encouraged to contact his critical [facility] doctor to be seen as soon [...] Description 09/15/2022 Appointment Orthopedics Delgado Gottlieb MD [address] [place] [phone] (Wo rk) 10/08/2022 Appointment Orthopedics Delgado Gottlieb MD [address] [place] [phone] (Wo rk) 05/27/2023 Appointment Chemo Therapy/Infusion Services documented as of this encounter Visit Diagnoses Not on filedocumented in this encounter Care Teams Financial Services Education Consultant Relationship Specialty Start Date End Date Cintia Cobb MD PCP - General Family Practice 09/30/21 documented as of this encounter
--- OUTSIDE RECORDS SUMMARY | 2022-08-12 09:40 | XMS_ITS | Encounter Summary ---
:1960 Author Organization [facility] Address [address] [place] [address] Care Team Providers Name Role Phone Cintia Cobb MD Primary Care Provider Encounter Details Date Type Department Care Team Description 12/30/2021 Notes/Orders [facility] Cesar Champagne, [address] [place], [place] [address] [address] [address] [place] [address] (Gavi rk) Social History Tobacco [...] Description 09/15/2022 Appointment Orthopedics Delgado Gottlieb MD [address] [place] [phone] (Gavi rk) 10/08/2022 Appointment Orthopedics Delgado Gottlieb MD [address] [place] [phone] (Wo rk) 05/27/2023 Appointment Chemo Therapy/Infusion Services documented as of this encounter Visit Diagnoses Not on filedocumented in this encounter Care Teams Big Data Lead Relationship Specialty Start Date End Date Cintia Cobb MD PCP - General Family Practice 09/30/21 documented as of this encounter
--- OUTSIDE RECORDS SUMMARY | 2022-08-12 09:40 | XMS_ITS | Encounter Summary ---
:1960 Author Organization [facility] Address [address], [place] [address] Care Team Providers Name Role Phone Cintia Cobb MD Primary Care Provider [phone] Reason for Visit Procedure/Equipment (Routine) - Incomplete Specialty Diagnoses / Procedures Referred By Contact Refer red To Contact Diagnoses Closed fracture of distal end of left femur with routine healing, unspecified fracture morphology, subsequent encounter Delgado Gottlieb MD Procedures XR Femur Lt 2 Views [address] [place] [address] Referral ID Status Reason Start Date Expiration Date Visits V isits Requested Authorized [id number] Incomplete 10/16/2021 01/15/2023 1 1 Encounter Details Date Type Department Care Team Description 10/16/2021 Ancillary [facility] Procedure Specialty Center Angélica Tadeo surgery of the Radiology [address] musculoskeletal system [address] [facility] [place] [address] [facility] [phone] [place] [address] Social History Tobacco Use Types Packs/Day Years [...] 09/15/2022 Appointment Orthopedics Delgado Gottlieb MD [address] [place], [place] [address] (Wo rk) 10/08/2022 Appointment Orthopedics Delgado Gottlieb MD [address] [place], [place] [address] (Wo rk) 05/27/2023 Appointment Chemo Therapy/Infusion Services documented as of this encounter Procedures Procedure Name Priority Date/Time Associated Diagnosis Comme nts XR FEMUR LT 2 Routine 10/16/2021 10:01 Aftercare following Res ults for this VIEWS AM DIRECTOR OF INTERCOLLEGIATE ATHLETICS surgery of the procedure are in musculoskeletal system the r esults section. documented in this encounter Results XR Femur Lt 2 Views (10/16/2021 10:01 AM DIRECTOR OF INTERCOLLEGIATE ATHLETICS) Anatomical Region Laterality Modality Lower Extremity, Leg, Thigh Computed Rad iography Specimen (Source) Anatomical Collection Method Collection Time Re ceived Time Location / / Volume Laterality 10/16/2021 10:01 AM DIRECTOR OF INTERCOLLEGIATE ATHLETICS Narrative 10/16/2021 2:21 PM DIRECTOR OF INTERCOLLEGIATE ATHLETICS EXAM: XR FEMUR LT 2 VIEWS LOCATION: [place] [address] DATE/TIME: 10/16/2021 10:01 AM INDICATION: Open reduction [...] EXAM: XR FEMUR LT 2 VIEWS LOCATION: [place] [address] DATE/TIME: 10/16/2021 10:01 AM INDICATION: Open reduction [...] Diagnoses Diagnosis Aftercare following [facility] Aftercare [facility] N[facility] documented in this encounter Care Teams River Boat Captain Relationship Specialty Start Date End Date Cintia Cobb MD PCP - General Family Practice 09/30/21 documented as of this encounter
--- OUTSIDE RECORDS SUMMARY | 2022-08-12 09:40 | XMS_ITS | Encounter Summary ---
:1960 Author Organization [facility] Address [address] [place] [address] Care Team Providers Name Role Phone Cintia Cobb MD Primary Care Provider [phone] Reason for Visit Reason Comments QUESTIONS, GENERAL Encounter Details Date Type Department Care Team Description 10/07/2021 Telephone Specialty Center [address] Delgado Gottlieb MD QUESTIONS, GENERAL Orthopedics Clinic [address] [place] [address] [place] [address] [phone] Social History Tobacco Use Types Packs/Day Years [...] as scheduled. He states he lives in [place] and was just trying to see if [...] he would like the order faxed to [facility] at [phone] ATTN: Lesli. Order faxed as requested. Rosetta Ye RN 10/07/2021, 12:49 PM Delgado Loyola MD - 10/07/2021 11:43 AM CST Given the complexity of this patient's injury my preference would be that he continue to see me for now. However, if he is still resistant to that then one option would be to arrange followup with Drs. Edge or Marcello at [facility]. There are no ortho trauma surgeons at [facility] so that would not be an option for followup of this injury. Thanks. Freddy Lua - 10/07/2021 10:04 AM CST Has the patient recently had surgery or an injury? Yes. Date of Surgery: September 30, 2021 Type of Surgery: Left ORIF distal femur How may we help you today? Patient called, wanting to transfer care to [facility] due to convenience, please call to advise Describe your symptoms/concerns: Left femur S/P ORIF When did the issue start: 09/30/21 Have you been seen for this recently?: Yes Dr. Gottlieb [Mixing Plant Operator/Appt Center: If yes, please include date and provider.] Is it okay to leave detailed message on your voicemail? Yes [Mixing Plant Operator/Appt Center: If this call is after 3 p.m., communicate to patient: If we are not able to get back to you by the end of the day and your symptoms worsen please contact the Careline] R CRANE OPERATOR documented in this encounter Plan of Treatment Upcoming Encounters Date Type Specialty Care Team Description 09/15/2022 Appointment Orthopedics Delgado oGttlieb MD [address] [place], [place] [address] (Wo rk) 10/08/2022 Appointment Orthopedics Delgado Gottlieb MD [address] [place], [place] [address] (Wo rk) 05/27/2023 Appointment Chemo Therapy/Infusion Services documented as of this encounter Visit Diagnoses Not on filedocumented in this encounter Care Teams Drug Coordinator Relationship Specialty Start Date End Date Cintia Cobb MD PCP - General Family Practice 09/30/21 documented as of this encounter
--- OUTSIDE RECORDS SUMMARY | 2022-08-12 09:41 | XMS_ITS | Encounter Summary ---
:1960 Author Organization [facility] Address [address], [place] [address] Care Team Providers Name Role Phone Cintia Cobb MD Primary Care Provider [phone] Reason for Visit Auth/Cert Specialty Diagnoses / [...] Expiration Date Visits Requ ested Visits Authorized [id number] 1 1 Encounter Details Date Type Department Care Team Description 10/01/2021 Ancillary [facility] [address] [place] [address] Social History Tobacco Use Types Packs/Day Years [...] Description 09/15/2022 Appointment Orthopedics Delgado Gottlieb MD [address] [place] [phone] (Gavi presley) 10/08/2022 Appointment Orthopedics Delgado Gottlieb MD [address] [place], [place] [address] (Gavi presley) 05/27/2023 Appointment Chemo Therapy/Infusion Services documented as of this encounter Procedures Procedure Name Priority Date/Time Associated Diagnosis Comme nts XR C-ARM 3.5-4 Routine 10/01/2021 2:11 PM Results for this HOURS EXTRACTOR OPERATOR HELPER procedure are i n the results section. documented in this encounter Results XR C-Arm 3.5-4 Hours (10/01/2021 2:11 PM EXTRACTOR OPERATOR HELPER) Anatomical Region Laterality Modality X-Ray Angiography Specimen (Source) Anatomical Location Collection Method / Collectio n Time Received Time / Laterality Volume Narrative 10/01/2021 2:12 PM EXTRACTOR OPERATOR HELPER Fluoroscopy provided by a manager of radiology. Exact fluoroscopy time is documented in end of exam information in EPIC Delgado Gottlieb MD RAD GD documented in this encounter Visit Diagnoses Not on filedocumented in this encounter Care Teams Horticultural Agent Relationship Specialty Start Date End Date Cintia Cobb MD PCP - General Family Practice 09/30/21 documented as of this encounter
--- OUTSIDE RECORDS SUMMARY | 2022-08-12 09:41 | XMS_ITS | Encounter Summary ---
:1960 Author Organization [employer] Address [address], [place] [address] Care Team Providers Name Role Phone Kevin Cobb MD Primary Care Provider [phone] Reason for Visit Reason Comments FRACTURE Auth/Cert [...] Expiration Date Visits Requ ested Visits Authorized [id number] 1 1 Encounter Details Date Type Department Care Team Description 10/01/2021 Surgery Operating Room Martha Gottlieb, OPEN REDUCTION INTERNAL [address] John Salsa MD [place] [address] DISTAL FEMUR FRACTURE [phone] [place], [place] [id number] Social History Tobacco Use Types Packs/Day Years [...] Comments Blood Pressure 98/45 10/01/2021 4:10 PM [employer] Pulse 66 10/01/2021 4:10 PM [employer] Temperature 36.9 ??C (98.4 ??F) 10/01/2021 4:10 PM [employer] Respiratory Rate 12 10/01/2021 4:10 PM [employer] Oxygen Saturation 100% 10/01/2021 4:10 PM [employer] Inhaled Oxygen Concentration - - Weight 82.5 kg (181 lb 14.4 oz) 10/01/2021 2:00 AM [employer] Height - - Body Mass Index 24.67 10/01/2021 2:00 AM [employer] documented in this encounter Discharge Summaries Suzie Daigle PA-C - 10/02/2021 8:50 AM CST [facility] Orthopedic Discharge Note Patient Name: [...] Date: 10/16/2021 Time: 10:20a Provider: Dr. Gottlieb [facility]: Orthopaedic & Sports Medicine; ( FAMILY OF CARE REFERRAL) [phone]; [address] [place] [address] References: Specialty Connection Sari Aneesh Consult Page Question: Reason for visit? Answer: s/p ORIF IMN L femur Discharge Practitioner Electronic Signature Comments: Suzie Daigle PA-C 10/02/2021 8:43 AM These orders have been electronically signed. (In accordance with [place] [employer]. Regulation Set, Fed A0232 - Types of Authentication) Weight bearing as tolerated Comments: You may resume normal weight bearing on the affected limb(s) as tolerated. Discharge Diet (see comments) Comments: Diabetic Follow Up: The patient will follow up with Martha Gottlieb MD in 2 weeks. At follow up, xrays should include L femur. This note completed by: uSzie Daigle PA-C [employer] documented in this encounter Discharge Instructions Discharge InstructionsAisha Workman RN - 10/03/2021 8:15 AM CST Clinic Phone Numbers ??? [facility]opa[facility]: [phone] ??? [facility]: [phone] Labs and Warfarin (Coumadin) Information No data found. This information has been sent to the following clinic:{COUMADIN FAX DESTINATION:[id number]} [facility] ??? Always wash your hands [...] density, or have had a fracture, call [phone] to schedule an appointment. [employer] documented in this encounter Medications at Time [...] Thompson MD - 10/03/2021 5:27 AM CST [facility] Orthopedic Surgery Progress Note Subjective: [...] Edward Thompson MD Orthopedic Surgery, PGY-2 Pager: [phone] [employer] Kay Mcadams PA-Kalia - 10/02/2021 2:52 PM [...] Vera MD - 10/02/2021 5:07 AM CST [facility] Orthopedic Surgery Progress Note Subjective: [...] evaluated the patient. Nathen Burger MD, PGY-1 [facility] Orthopedic Surgery Pager: [phone] 10/02/2021 5:07 AM [employer] Anika Lazo RN - 10/01/2021 4:21 PM CST I completed a full assessment and assessments as ordered and per policy on this patient during my work shift. Reassessments completed during my work shift are unchanged unless documented. [employer] Kay Mcadams PA-C - 10/01/2021 4:00 PM CST Brief HM Note Unable to see patient today as he has been in the OR. Recommend repeat Hgb and consideration of IV iron if pt agreeable. Medicine will f/u tomorrow. Kay Mcadams PA-C Department of Hospital Medicine Josep Anderson MD - 10/01/2021 5:40 AM CST [facility] Orthopedic Surgery Progress Note Subjective: [...] days. F/U: TBD Josep Cervantes MD, PGY-2 [facility] Orthopedic Surgery Pager: [phone] 10/01/2021 5:41 AM [employer] documented in this encounter Procedure Notes Suzie Daigle PA-C - 10/01/2021 2:04 PM CST [facility] Brief Operative Progress Note Surgery Date: [...] left femur x-rays needed. Suzie Daigle PA-C [employer] Martha Gottlieb MD - 10/01/2021 12:00 AM CST NAME: NOEMÍ LUNA CSN: [id number] OPERATIVE REPORT DATE OF SURGERY: 10/01/2021 : [...] after the injury. He was brought to [facility] emergency department, where he was found to have a comminuted and displaced left supracondylar distal femur fracture. This was a closed injury, and he was neurovascularly intact. Of note, the patient had sustained an ipsilateral left intertrochanteric femur fracture in August of 2019for which he underwent short intramedullary nailing in [place], [place]. Prior to this most recent injury, the patient was ambulatory with a cane. 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 The IT band laterally was closed with #1 Vicryl njtwac-[id number] sutures. All skin incisions were then closed with 2-0 Vicryl buried deepdermal sutures and chapis. A sterile compressive dressing was then applied and finally the leg was wrapped in a double length 6-inch Carmita wrap. The patient was transferred back to his hospital bed, andthe Munoz catheter was removed. He was awoken from anesthesia without incident and taken to the [facility] room in stable condition. COMPLICATIONS: None. [...] of the procedure. MARTHA GOTTLIEB MD RDW/AQS /[id number] [employer] documented in this encounter Consult Notes Jaja Amor PA-C - 10/02/2021 10:40 AM CSTAssociated Order(s): ENDOCRINE CONSULT See consult note 10/01. Will continue to follow peripherally x24 hours. Glucose remains stable. Jaja Amor PA-C Endocrinology [employer] Padmini Lima APRN, PHARMACOVIGILANCE SCIENTIST - 10/01/2021 2:36 PM CSTAssociated Order(s): ENDOCRINE [...] you, Padmini Lima APRN, KORIN, Endocrinology nonbillable [employer] Keyla Gilbert APRN, CNP - 10/01/2021 7:20 [...] cane at baseline Works as a truck switcher Additional Osteoporosis Risk Factors: Tobacco/Alcohol: No current [...] care for the patient. Keyla Gilbert APRN, PHARMACOVIGILANCE SCIENTIST [employer] Ted Burdick MD - 09/30/2021 9:29 PM CST [facility] Pre-operative Exam Patient Name: Noemí [...] JACKSON. 3.9 % 30-day risk of , ND, or cardiac arrest per RCRI. Neither of [...] extensive explanations of risks of anemia pre-operatively (ND, , etc) and screening for infections of [...] lose consciousness. Didn't hit head. 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 Worried that he will lose everything if [...] surgery on 10/01/[address] Peck at [facility]. Pre-operative Screening Questions: Tightening or [...] M.D.; Location: [facility] GI LAB?? Medical devices from this surgery are in the Medical Devices section.?? CARDIAC PACEMAKER PLACEMENT ? OPEN REDUCTION INTERNAL FIXATION FEMUR 08/13/2019 Hip/Left Procedure: OPEN REDUCTION INTERNAL FIXATION LEFT FEMUR; Surgeon: John Norman M.D.; Location: [facility] OR?? Medical devices from this surgery [...] conditions: No # Acute coronary syndrome # ND < one month ago # decompensated heart [...] CC: consult --- End of Report --- [employer] Martha Gottlieb MD - 09/30/2021 6:15 PM [...] obstruction who presentsas a transfer from the [facility] ED with left distal thigh pain after [...] femur fracture by Dr. John Norman in [place], [place]. Location: Left distal thigh Time of Onset: today Severity: 04/16 Quality: sharp Radiation: none Exacerbating: movement, WB Alleviating: rest Associated symptoms: none Patient has been NPO since 1999 on 09/29/21. Patient lives with his and dog. Patient ambulates with a cane. 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 If there is no reply, if it is a weekend, or if it is after hours, then please page the orthopedic surgery service pager at [phone] Attestation: I saw and evaluated this patient and we have discussed the plan of care with the resident. I have personally reviewed the patient's imaging and laboratory data. I agree with the findings as detailed inthe resident's note. Martha Gottlieb MD Park Activities Coordinator [facility] Department of Orthopaedic Surgery [facility] [employer] documented in this encounter ED Notes Jonah Nova MD - 09/30/2021 6:14 PM CST [facility] Emergency Department Attending Supervision Note [...] and screen Admit Author: Jonah Nova MD [employer] Francisca Harvey MD - 09/30/2021 5:45 PM CST [facility] Emergency Medicine Visit Note Chief [...] his knee and was brought to the [facility] ED for evaluation. There, was found to [...] and left knee imaging as images from [place] of the left knee are not available. [...] femur, unspecified fracture morphology, initial encounter (HRC) [employer] Juan Miguel Rios MD - 09/30/2021 4:01 PM CST Referred from [facility] by MD for L femur fx. Background/plan: Slipped and fell this morning. L distal femur fx. CMS intact. No other hinjury. Noton anticoag. VSS Covid negative. Needs ortho Means of arrival: EMS Call back: none [employer] documented in this encounter Plan of Treatment Upcoming Encounters Date Type Specialty Care Team Description 09/15/2022 Appointment Orthopedics Martha Gottlieb MD [address], [place] [address] (Wo rk) 10/08/2022 Appointment Orthopedics Martha Gottlieb MD [address], [place] [address] (Wo rk) 05/27/2023 Appointment Chemo Therapy/Infusion Services Pending Results Name Type Priority Associated Diagnoses Date/Ti me Transfuse RBC Nursing Transfusion Routine 022 3:23 AM [employer] Scheduled Referrals Name Type Priority Associated Diagnoses [...] 10/02/2021 10:21 Resu lts for this AM [employer] procedure are i n the results section. VITAMIN D 25-HYDROXY, Routine 10/02/2021 8:22 Res ults for this TOTAL AM [employer] procedure are i n the results section. INTACT PTH Routine 10/02/2021 8:22 Results for this AM [employer] procedure are i n the results section. COMP METABOLIC PANEL Routine 10/02/2021 8:22 Resu lts for this AM [employer] procedure are i n the results section. TSH, SENSITIVE Routine 10/02/2021 8:22 Results fo r this AM [employer] procedure are i n the results section. COMPLETE BLOOD COUNT-NO Routine 10/02/2021 8:22 R esults for this DIFF AM [employer] procedure are i n the results section. GLUCOSE, WHOLE BLOOD POCT Routine 10/01/2021 3:00 Results for this PM [employer] procedure are i n the results section. XR C-ARM 3.5-4 HOURS Routine 10/01/2021 2:11 Resu lts for this PM [employer] procedure are i n the results section. HEMOGLOBIN, MEASURED POCT Routine 10/01/2021 10:52 Results for this AM [employer] procedure are i n the results section. GLUCOSE, WHOLE BLOOD POCT Routine 10/01/2021 10:48 Results for this AM [employer] procedure are i n the results section. INSERTION INTRAMEDULLARY 10/01/2021 9:59 Closed fractu re of NAIL FEMUR AM [employer] distal end of left femur, unspecified fracture morphology, initial encounter (HRC) OPEN REDUCTION INTERNAL 10/01/2021 9:59 Closed fractur e of FIXATION DISTAL FEMUR AM [employer] distal end of left FRACTURE femur, unspecified fracture morphology, initial encounter (HRC) GLUCOSE, WHOLE BLOOD POCT Routine 10/01/2021 9:16 Results for this AM [employer] procedure are i n the results section. ECG 12-LEAD ROUTINE(LAB Routine 10/01/2021 6:20 R esults for this PERFORM) AM [employer] procedure are i n the results section. [id number] ELECTROCARDIOGRAM STAT 10/01/2021 6:14 R esults for this TRACING AM [employer] procedure are i n the results section. IV INSERTION(LAB TO STAT 10/01/2021 2:34 Resul ts for this PERFORM) AM [employer] procedure are i n the results section. PREP RBC LR Routine 09/30/2021 11:01 Results for this PM [employer] procedure are i n the results section. XR PELVIS AP W AP/LAT HIP STAT 09/30/2021 7:32 Results for this LT PM [employer] procedure are i n the results section. XR FEMUR LT 2 VIEWS LOWER STAT 09/30/2021 7:32 Results for this AP/LAT PM [employer] procedure are i n the results section. XR KNEE LT 2 VIEWS STAT 09/30/2021 7:32 Result s for this PM [employer] procedure are i n the results section. CBC AND DIFFERENTIAL Routine 09/30/2021 7:02 Resu lts for this PANEL PM [employer] procedure are i n the results section. BT SECOND DRAW Routine 09/30/2021 7:02 Results fo r this PM [employer] procedure are i n the results section. COMPLETE BLOOD Routine 09/30/2021 7:02 Results fo r this COUNT-W/DIFF PM [employer] procedure are i n the results section. BASIC METABOLIC PANEL Routine 09/30/2021 7:02 Res ults for this PM [employer] procedure are i n the results section. DIFFERENTIAL Routine 09/30/2021 7:02 Results for this PM [employer] procedure are i n the results section. FERRITIN Add-On 09/30/2021 7:02 Results for this PM [employer] procedure are i n the results section. IRON PROFILE Add-On 09/30/2021 7:02 Results for this (IRON,TIBC,%SAT.(CALC)) PM [employer] proc edure are in the results section. TYPE AND SCREEN STAT 09/30/2021 6:27 Results f or this PM [employer] procedure are i n the results section. ANTIBODY SCREEN STAT 09/30/2021 6:27 Results f or this PM [employer] procedure are i n the results section. BLOOD TYPE STAT 09/30/2021 6:27 Results for this PM [employer] procedure are i n the results section. PATH REVIEW (LAB USE Routine 09/30/2021 6:27 Resu lts for this ONLY) PM [employer] procedure are i n the results section. APTT (ACTIVATED PARTIAL Routine 09/30/2021 6:27 R esults for this THROMBOPLASTIN TIME PM [employer] procedur e are in the results section. HEMOGLOBIN, BLOOD STAT 09/30/2021 6:27 Results for this PM [employer] procedure are i n the results section. INR/PROTIME Routine 09/30/2021 6:27 Results for this PM [employer] procedure are i n the results section. documented in this encounter Results XR Femur Lt 2 Views (10/02/2021 10:21 AM [employer]) Anatomical Region Laterality Modality Lower Extremity, Leg, Thigh Computed Rad iography Specimen (Source) Anatomical Collection Method Collection Time Re ceived Time Location / / Volume Laterality 10/02/2021 10:21 AM [employer] Narrative 10/02/2021 10:37 AM [employer] EXAM: XR FEMUR LT 2 VIEWS LOCATION: [facility] DATE/TIME: 10/02/2021 10:21 AM INDICATION: S/p [...] EXAM: XR FEMUR LT 2 VIEWS LOCATION: [facility] DATE/TIME: 10/02/2021 10:21 AM INDICATION: S/p [...] D 25 HYDROXY, TOTAL (10/02/2021 8:22 AM [employer]) [facility] gist Method Time Signature Vitamin D, 58 30 - 80 10/02/2021 [facility] 25-OH, Total ng/mL 12:54 PM [facility] Specimen Anatomical Collection Method / Collection Time Recei shahid Time (Source) Location / Volume Laterality Blood Venipuncture 10/02/2021 8:22 10/02/2021 8 :32 Butterfly / Unknown AM [employer] AM [employer] Keyla Gilbert APRN, KORIN LAB_1 Performing Organization Address City/State/ZIP Code Phon e Number [email or web address] [address] [address] TSH (10/02/2021 8:22 AM [employer]) P athologist Signature TSH, Sensitive 0.31 0.30 - 10/02/2021 [facility] 4.50 9:37 AM [facility]3] uIU/mL Specimen Anatomical Collection Method / Collection Time Recei shahid Time (Source) Location / Volume Laterality Blood Venipuncture 10/02/2021 8:22 10/02/2021 8 :33 Butterfly / Unknown AM [employer] AM [employer] Keyla E Ofelia GAS STATION OPERATOR, PHARMACOVIGILANCE SCIENTIST LAB_1 Performing Organization Address City/State/ZIP Code Phon e Number [address] [address] (ABNORMAL) Comp Metabolic Panel (10/02/2021 8:22 AM [employer]) Analysis Performed At Patho logist Time Signature Sodium 137 136 - 145 10/02/2021 [facility] mmol/L 9:19 AM [facility] Potassium 4.2 3.5 - 5.1 10/02/2021 [facility] mmol/L 9:19 AM [facility] Chloride 108 98 - 109 10/02/2021 [facility] mmol/L 9:19 AM [facility] CO2 23 20 - 29 10/02/2021 [facility] mmol/L 9:19 AM [facility] Anion Gap 6 (L) 7 - 16 10/02/2021 [facility] mmol/L 9:19 AM [facility] Calcium 8.4 8.4 - 10.4 10/02/2021 [facility] mg/dL 9:19 AM [facility] BUN 30 (H) 7 - 26 10/02/2021 [facility] mg/dL 9:19 AM [facility] Creatinine 0.96 0.73 - 10/02/2021 [facility] 1.18 mg/dL 9:19 AM [facility] GFR, Estimated >60 >60 10/02/2021 [facility] mL/min/1.7 9:19 AM [facility] 3m2 Alkaline 42 40 - 150 10/02/2021 [facility] Phosphatase U/L 9:19 AM [facility] AST (SGOT) 12 10 - 40 10/02/2021 [facility] U/L 9:19 AM [facility] ALT (SGPT) 13 0 - 55 U/L 10/02/2021 [facility] 9:19 AM [facility] Bilirubin, Total 0.2 0.2 - 1.2 10/02/2021 [facility] mg/dL 9:19 AM [facility] Protein, Total 5.5 (L) 6.4 - 8.3 10/02/2021 [facility] g/dL 9:19 AM [facility] Albumin 3.1 (L) 3.5 - 5.0 10/02/2021 [facility] g/dL 9:19 AM [facility] Glucose 116 (H) 70 - 100 10/02/2021 [facility] mg/dL 9:19 AM [facility] Comment: The given reference range is fo r the fasting state. Non-fasting reference range for glucose is 70 - 180 mg/dL. Specimen Anatomical Collection Method / Collection Time Recei shahid Time (Source) Location / Volume Laterality Blood Venipuncture 10/02/2021 8:22 10/02/2021 8 :33 Butterfly / Unknown AM [employer] AM [employer] Keyla Gilbert APRN, KORIN LAB_1 Performing Organization Address City/State/ZIP Code Phon e Number [address] [address] (ABNORMAL) Complete Blood Count-No Diff (10/02/2021 8:22 AM [facility]) Analysis Performed At Patho logist Time Signature WBC 7.5 3.5 - 10.5 10/02/2021 [facility] x10(9)/L 9:19 AM [facility]3] RBC 2.41 (L) 4.32 - 10/02/2021 [facility] 5.72 9:19 AM [facility]3] x10(12)/L Hemoglobin 5.6 (LL) 13.5 - 10/02/2021 [facility] 17.5 g/dL 9:19 AM [facility]3] HCT 19.3 (L) 38.8 - 10/02/2021 [facility] 50.0 % 9:19 AM [facility]3] MCV 80.1 80.0 - 10/02/2021 [facility] 100.0 fL 9:19 AM [facility]3] MCH 23.2 (L) 27.6 - 10/02/2021 [facility] 33.3 pg 9:19 AM [facility]3] MCHC 29.0 (L) 31.5 - 10/02/2021 [facility] 35.2 g/dL 9:19 AM [facility]3] RDW 17.2 (H) 11.9 - 10/02/2021 [facility] 15.5 % 9:19 AM [facility]3] Platelets 130 (L) 150 - 450 10/02/2021 [facility] x10(9)/L 9:19 AM [facility]3] Automated NRBC 0 <=0 /100 10/02/2021 [facility] WBC 9:19 AM [facility]3] Specimen Anatomical Collection Method / Collection Time Recei shahid Time (Source) Location / Volume Laterality Blood Venipuncture 10/02/2021 8:22 10/02/2021 8 :33 Butterfly / Unknown AM [employer] AM [employer] Keyla Gilbert APRN, CNP LAB_1 Performing Organization Address [facility]/ZIP [facility] [place] Number [address] [address] Intact PTH (10/02/2021 8:22 AM [employer]) P athologist Signature Intact PTH 96 10 - 100 10/02/2021 [facility] pg/mL 9:37 AM [employer] HOSPITAL Specimen Anatomical Collection Method / Collection Time Recei shhaid Time (Source) Location / Volume Laterality Blood Venipuncture 10/02/2021 8:22 10/02/2021 8 :33 Butterfly / Unknown AM [employer]Y AM [employer] Keyla Gilbert APRN, CNP LAB_1 Performing Organization Address [facility] e Number [address] [address] Glucose, Whole Blood POCT (10/01/2021 3:00 PM [employer]) [facility] gist Method Time Signature Glucose, Whole 166 70 - 180 10/01/2021 [facility] Blood mg/dL 3:01 PM [employer] HOSPITAL POCT Comment 1 MD Notified 10/01/2021 [facility] 3:01 PM [employer] HOSPITAL Performing RCLAB PACU 10/01/2021 [facility] Location 3:01 PM [facility] Specimen Anatomical Collection Method Collection Time Receive d Time (Source) Location / / Volume Laterality Blood 10/01/2021 3:00 PM 3:01 [employer] PM [employer] Martha Gottlieb MD LAB_1 Performing Organization Address [facility]/[place] [facility] [place] Number [address] [address] XR C-Arm 3.5-4 Hours (10/01/2021 2:11 PM [employer]) Anatomical Region Laterality Modality X-Ray Angiography Specimen (Source) Anatomical Location Collection Method / Collectio n Time Received Time / Laterality Volume Narrative 10/01/2021 2:12 PM [employer] Fluoroscopy provided by a operating room technologist. Exact fluoroscopy time is documented in end of exam information in EPIC Martha Gottlieb MD RAD GD (ABNORMAL) Hemoglobin, Measured POCT (10/01/2021 10:52 AM [employer]) Analysis Performed At [facility] logist Time Signature Hemoglobin 8.5 (L) 13.5 - 10/03/2021 [facility] 17.5 g/dL 7:17 AM [facility] Performing RCLAB OR 10/03/2021 [facility] Location 7:17 AM [facility] Specimen Anatomical Collection Method Collection Time Receive d Time (Source) Location / / Volume Laterality Blood 10/01/2021 10:52 10/03/2021 7:17 AM [employer] AM [employer] Martha Gottlieb MD LAB_1 Performing Organization Address City/[facility]/ZIP Code Phon e Number [address] [address] Glucose, Whole Blood POCT (10/01/2021 10:48 AM SUPERVISOR [employer]) [facility] gist Method Time Signature Glucose, Whole 103 70 - 180 10/01/2021 [facility] Blood mg/dL 10:50 AM [facility] POCT Comment 1 No Action 10/01/2021 [facility] Required 10:50 AM [facility] Performing RCLAB OR 10/01/2021 [facility] Location 10:50 AM [facility] Specimen Anatomical Collection Method Collection Time Receive d Time (Source) Location / / Volume Laterality Blood 10/01/2021 10:48 10/01/2021 AM [employer] 10:50 AM [employer] Martha Gottlieb MD LAB_1 Performing Organization Address City/[facility]/ZIP Code Phon e Number [address] [address] Glucose, Whole Blood POCT (10/01/2021 9:16 AM SU[employer]VIS[employer]) [facility] gist Method Time Signature Glucose, Whole 106 70 - 180 10/01/2021 [facility] Blood mg/dL 9:17 AM [facility] Performing RCLAB SDS 10/01/2021 [facility] Location 9:17 AM [facility] [employer]PITAL Specimen Anatomical Collection Method Collection Time Receive d Time (Source) Location / / Volume Laterality Blood 10/01/2021 9:16 AM 9:17 [employer] AM [employer] Martha Gottlieb MD LAB_1 Performing Organization Address City/[facility]/ZIP Code Phon e Number [address] [address] Transfuse RBC (10/01/2021 8:38 AM [employer]) Josep Peck MD ET NURSING BLOOD ADMIN ECG 12-Lead Routine (Lab perform) (10/01/2021 6:20 AM [employer]) P athologist Signature EKG Completed 10/01/2021 [facility] 11:02 AM [facility] Specimen Anatomical Collection Method Collection Time Receive d Time (Source) Location / / Volume Laterality Other Specimen Non-blood 10/01/2021 6:20 AM 022 9:57 Type Collection / [employer] AM [employer] Unknown Óscar Simms DO LAB_1 Performing Organization Address City/State/ZIP Code Phon e Number [facility] [address] [place] [address] Ecg 12-Lead Routine (MUSE) (10/01/2021 6:14 AM [employer]) P athologist Signature Ventricular Rate 64 BPM [facility] Atrial Rate 64 BPM [facility] P-R Interval 448 ms [facility] QRS Duration 176 ms [facility] QT 466 ms [facility] QTc 480 ms [facility] R [place] -89 degrees MUSE [facility] T [place] 68 degrees MUSE [facility] Specimen (Source) Anatomical Collection Method Collection Time Re ceived Time Location / / Volume Laterality 10/01/2021 6:14 AM [employer] Narrative [facility] - 10/01/2021 2:40 PM [employer] Atrial-sensed ventricular-paced rhythm with prolonged AV conduction Abnormal ECG No previous ECGs available Confirmed by Pancho Dangelo ([id number]) on 10/01/19 2:40:30 PM Procedure Note Pancho Dangelo MD - 10/01/2021 Atrial-sensed ventricular-paced rhythm w ith prolonged AV conduction Abnormal ECG No previous ECGs available Confirmed by Pancho Dangelo ([id number]) on 10/01/19 2:40:30 PM Óscar Simms DO EKG Performing Organization Address City/[facility]/ZIP Code Phon e Number [facility] [address] [place] [id number] IV Insertion, LST Perform (10/01/2021 2:34 AM [employer]) P athologist Signature IV INSERTION, Done 10/01/2021 [facility] PERFORM 5:03 AM [facility] HOSPITAL (LAB) Specimen Anatomical Collection Method / Collection Time Recei shahid Time (Source) Location / Volume Laterality Other Specimen Venipuncture 10/01/2021 2:34 10/01/2021 3:20 Type Butterfly / Unknown AM [employer] AM [employer] Josep Peck MD LAB_1 Performing Organization Address [facility] Phon e Number [address] [address] Prep RBC: , 2 Units (09/30/2021 11:01 PM SU[employer]) Component Value Ref Test Analysis Performed At [facility] Range Method Time Signature BLOOD PRODUCT [id number] [facility] CODE BLOOD BANK BLOOD UNIT NUMBER [id number] [facility] S BLOOD BANK CROSSMATCH Compatible [facility] INTERPRETATION BLOOD BANK BLOOD DISPENSE Transfused [facility] STATUS BLOOD BANK Unit Expiration [facility] Date BLOOD BANK UNIT BT BARCODE 6200 [facility] BLOOD [facility] PRODUCT VOL ML 400 [facility] BLOOD [facility] CODING SYSTEM ISBT [facility] BLOOD [facility] PRODUCT RBC LR [facility] BLOOD [facility] BLOOD PRODUCT [id number] [facility] CODE BLOOD BANK BLOOD UNIT NUMBER [id number] [facility] S BLOOD BANK CROSSMATCH Compatible [facility] [...] / Volume Laterality Blood 09/30/2021 11:01 PM [employer] Josep Peck MD LAB_BLOOD PRODUCTS Performing Organization Address City/[facility] Phon e Number [facility] [address] [place] [phone] XR Femur Lt 2 Views Lower AP/Lat (09/30/2021 7:32 PM [employer]) Anatomical Region Laterality Modality Lower Extremity, Leg, Thigh Computed Rad iography Specimen (Source) Anatomical Collection Method Collection Time Re ceived Time Location / / Volume Laterality 09/30/2021 7:32 PM [employer] Narrative 09/30/2021 7:41 PM [employer] EXAM: XR FEMUR LT 2 VIEWS LOWER AP/LAT LOCATION: [facility] DATE/TIME: 09/30/2021 7:32 PM [...] Knee Lt 2 Views (09/30/2021 7:32 PM [employer]) Anatomical Region Laterality Modality Lower Extremity, Knee Computed Radiograp hy Specimen (Source) Anatomical Collection Method Collection Time Re ceived Time Location / / Volume Laterality 09/30/2021 7:32 PM [employer] Narrative 09/30/2021 7:38 PM [employer] EXAM: XR KNEE LT 2 VIEWS LOCATION: [...] W AP/Lat Hip Lt (09/30/2021 7:32 PM [employer]) Anatomical Region Laterality Modality Pelvis, Hip Computed Radiography Specimen (Source) Anatomical Collection Method Collection Time Re ceived Time Location / / Volume Laterality 09/30/2021 7:32 PM [employer] Narrative 09/30/2021 7:41 PM [employer] EXAM: XR PELVIS AP W AP/LAT HIP LT LOCATION: [facility] DATE/TIME: 09/30/2021 7:32 PM [...] PELVIS AP W AP/LAT HIP LT LOCATION: [facility] DATE/TIME: 09/30/2021 7:32 PM [...] RAD GD (ABNORMAL) Ferritin (09/30/2021 7:02 PM [employer]) P athologist Signature Ferritin 13 (L) 22 - 275 09/30/2021 [facility] ng/mL 10:48 PM [facility] [employer]OSPITAL Specimen Anatomical Collection Method / Collection Time Recei shahid Time (Source) Location / Volume Laterality Blood Venipuncture / 09/30/2021 7:02 09/30/2021 7:07 Unknown PM [employer] PM [employer] Ted Burdick MD LAB_1 Performing Organization Address City/State/ZIP Code Phon e Number [address] [address] (ABNORMAL) Iron Profile (Iron,TIBC,%Sat.(Calc)) (09/30/2021 7:02 PM SUPERVISOR [employer]SEMBL[employer]) [facility] Method Time Signature Iron 14 (L) 65 - 175 09/30/2021 [facility] mcg/dL 10:41 PM HOSPITAL SUPERVISOR [employer]SEMBL[employer] Transferrin 324 174 - 364 09/30/2021 [facility] mg/dL 10:41 PM HOSPITAL SUPERVISOR [employer]SEMBL[employer] TIBC, Calculated 405 240 - 450 09/30/2021 [facility] mcg/dL 10:41 PM [facility]OSPITAL SUPERVISOR [employer]SEMBL[employer] % Saturation, 3 (L) 10 - 50 % 09/30/2021 [facility] Calculated 10:41 PM HOSPITAL SUPERVISOR [employer]SEMBLY TIBC Low iron, 09/30/2021 [facility] Interpretation normal TIBC, 10:41 PM HOSPITAL possible [employer] iron deficiency. Specimen Anatomical Collection Method / Collection Time Recei shahid Time (Source) Location / Volume Laterality Blood Venipuncture / 09/30/2021 7:02 09/30/2021 7:07 Unknown PM [employer] PM [employer] Ted Burdick MD LAB_1 Performing Organization Address City/State/ZIP Code Phon e Number [address] [address] (ABNORMAL) Differential (09/30/2021 7:02 PM SUPERVISOR [employer]SEMBL[employer]) [facility] Method Time Signature Polychromasia Slight (A) None Seen 09/30/2021 [facility] 7:42 PM [facility] RBC Morphology Reviewed 09/30/2021 [facility] 7:42 PM [facility] Platelet Estimate Adequate Adequate 09/30/2021 [facility] 7:42 PM [facility] Neutrophil 7.1 (H) 1.7 - 7.0 09/30/2021 [facility] Absolute 10(9)/L 7:42 PM [facility] Lymphocyte 0.5 (L) 1.0 - 4.8 09/30/2021 [facility] Absolute 10(9)/L 7:42 PM [facility] Monocytes 0.3 0.2 - 0.9 09/30/2021 [facility] Absolute 10(9)/L 7:42 PM [facility] Eosinophil 0.0 0.0 - 0.5 09/30/2021 [facility] Absolute 10(9)/L 7:42 PM [facility] Basophil Absolute 0.1 0.0 - 0.3 09/30/2021 [facility] 10(9)/L 7:42 PM [facility] Specimen Anatomical Collection Method / Collection Time Recei shahid Time (Source) Location / Volume Laterality Blood Venipuncture / 09/30/2021 7:02 09/30/2021 7:07 Unknown PM [employer] PM [employer] Jonah Nova MD LAB_1 Performing Organization Address [facility]/[place] [facility] [place] Number [address] [address] Blood Type second draw (09/30/2021 7:02 PM SU[employer]SEMBL[employer]) P athologist Signature ABO A 09/30/2021 [facility] BLOOD 7:42 PM [employer] BANK RH Positive 09/30/2021 [facility] BLOOD 7:42 PM [employer] BANK Specimen Anatomical Collection Method / Collection Time Recei shahid Time (Source) Location / Volume Laterality Blood Venipuncture / 09/30/2021 7:02 09/30/2021 7:07 Unknown PM [employer]BL[employer] PM [employer]ICATION [employer]BL[employer] Eugenia Gupta MD LAB_1 Performing Organization Address [facility] Phon e Number [facility] [address] [place] [address] (ABNORMAL) Complete Blood Count-W/Diff (09/30/2021 7:02 PM SU[employer]VIS[employer]BL[employer]) Analysis Performed At Patho logist Time Signature WBC 8.0 3.5 - 10.5 09/30/2021 [facility] x10(9)/L 7:42 PM [facility] RBC 2.68 (L) 4.32 - 09/30/2021 [facility] 5.72 7:42 PM [facility] x10(12)/L Hemoglobin 6.0 (LL) 13.5 - 09/30/2021 [facility] 17.5 g/dL 7:42 PM [facility] HCT 20.8 (L) 38.8 - 09/30/2021 [facility] 50.0 % 7:42 PM [facility] MCV 77.6 (L) 80.0 - 09/30/2021 [facility] 100.0 fL 7:42 PM [facility] MCH 22.4 (L) 27.6 - 09/30/2021 [facility] 33.3 pg 7:42 PM [facility] MCHC 28.8 (L) 31.5 - 09/30/2021 [facility] 35.2 g/dL 7:42 PM [facility] [employer]OSPITAL RDW 17.5 (H) 11.9 - 09/30/2021 [facility] 15.5 % 7:42 PM [facility]3] Platelets 151 150 - 450 09/30/2021 [facility] x10(9)/L 7:42 PM [facility]3] Automated NRBC 0 <=0 /100 09/30/2021 [facility] WBC 7:42 PM [facility]3] Specimen Anatomical Collection Method / Collection Time Recei shahid Time (Source) Location / Volume Laterality Blood Venipuncture / 09/30/2021 7:02 09/30/2021 7:07 Unknown PM [employer] PM [employer] Jonah Nova MD LAB_1 Performing Organization Address City/State/ZIP Code Phon e Number [address] [address] (ABNORMAL) Basic Metabolic Panel (09/30/2021 7:02 PM [facility]) P athologist Signature Sodium 136 136 - 145 09/30/2021 [facility] mmol/L 7:46 PM [facility]3] Potassium 4.0 3.5 - 5.1 09/30/2021 [facility] mmol/L 7:46 PM [facility]3] Chloride 104 98 - 109 09/30/2021 [facility] mmol/L 7:46 PM [facility]3] CO2 24 20 - 29 09/30/2021 [facility] mmol/L 7:46 PM [facility]3] Anion Gap 8 7 - 16 09/30/2021 [facility] mmol/L 7:46 PM [facility]3] Calcium 8.4 8.4 - 10.4 09/30/2021 [facility] mg/dL 7:46 PM [facility]3] BUN 26 7 - 26 09/30/2021 [facility] mg/dL 7:46 PM [facility]3] Creatinine 0.78 0.73 - 09/30/2021 [facility] 1.18 mg/dL 7:46 PM [facility]3] GFR, Estimated >60 >60 09/30/2021 [facility] mL/min/1.7 7:46 PM [facility]3] 3m2 Glucose 152 (H) 70 - 100 09/30/2021 [facility] mg/dL 7:46 PM [facility]3] Comment: The given reference range is fo r the fasting state. Non-fasting reference range for glucose is 70 - 180 mg/dL. Specimen Anatomical Collection Method / Collection Time Recei shahid Time (Source) Location / Volume Laterality Blood Venipuncture / 09/30/2021 7:02 09/30/2021 7:07 Unknown PM [employer] PM [employer] Jonah Nova MD LAB_1 Performing Organization Address [facility] Phon e Number [address] [address] Blood Smear Review (Lab Use Only) (09/30/2021 6:27 PM SU[employer]) Patholo gist Method Time Signature Path Review Special heme 10/01/2021 [facility] tech 11:24 AM [facility]3] performed slide review Path Review Hgb low 10/01/2021 [facility] Reason 11:24 AM [facility] Specimen Anatomical Collection Method / Collection Time Recei shahid Time (Source) Location / Volume Laterality Blood Venipuncture / 09/30/2021 6:27 09/30/2021 6:47 Unknown PM [employer]SEMBL[employer] PM [employer]ICATION [employer]SEMBLY Jonah Nova MD LAB_1 Performing Organization Address [facility] Phon e Number [address] [address] (ABNORMAL) Hemoglobin, Blood (09/30/2021 6:27 PM SUPERVIS[employer]ICATION [employer]SEMBL[employer]) P athologist Signature Hemoglobin 5.8 (LL) 13.5 - 17.5 09/30/2021 [facility] g/dL 7:12 PM [facility] Specimen Anatomical Collection Method / Collection Time Recei shahid Time (Source) Location / Volume Laterality Blood Venipuncture / 09/30/2021 6:27 09/30/2021 6:47 Unknown PM [employer]ICATION [employer]SEMBL[employer] PM [employer]PERVIS[employer]ICATION [employer]SEMBLY Jonah Nova MD LAB_1 Performing Organization Address [facility] Phon e Number [address] [address] INR/Protime (09/30/2021 6:27 PM SUPER[employer]SEMBL[employer]) P athologist Signature Protime 13.6 11.8 - 14.6 09/30/2021 [facility] Seconds 7:03 PM [facility] INR 1.1 0.9 - 1.1 09/30/2021 [facility] 7:03 PM [facility] Specimen Anatomical Collection Method / Collection Time Recei shahid Time (Source) Location / Volume Laterality Blood Venipuncture / 09/30/2021 6:27 09/30/2021 6:47 Unknown PM [employer]ICATION [employer]SEMBL[employer] PM SUPERVISOR [employer]ICATION AND ASSEMBLY [facility] - 09/30/2021 7:03 PM CS T Therapeutic range determined by protocol established by anticoagulation provider. Jonah Nova MD LAB_1 Performing Organization Address [facility] e Number [address] [address] APTT (Activated Partial Thromboplastin Time) (09/30/2021 6:27 PM SUPERVISOR [employer]ICATION [employer]SEMBL[employer]) P athologist Signature APTT 31.7 22.5 - 36.5 09/30/2021 [facility] Seconds 7:03 PM [facility]OSPITAL Specimen Anatomical Collection Method / Collection Time Recei shahid Time (Source) Location / Volume Laterality Blood Venipuncture / 09/30/2021 6:27 09/30/2021 6:47 Unknown PM [employer]ICATION [employer]SEMBL[employer] PM [employer]ICATION [employer]SEMBL[employer] Jonha Nova MD LAB_1 Performing Organization Address [facility] e [address] [address] Antibody Screen (09/30/2021 6:27 PM SUPERVISOR [employer]ICATION [employer]SEMBLY) Patholo gist Method Time Signature Antibody Screen Negative 09/30/2021 [facility] BLOOD Interpretation 7:35 PM [employer] BANK Specimen Anatomical Collection Method / Collection Time Recei shahid Time (Source) Location / Volume Laterality Blood Venipuncture / 09/30/2021 6:27 09/30/2021 6:46 Unknown PM SUPER[employer]OR [employer]ICATION [employer]SEMBL[employer] PM [employer]PER[employer]ICATION [employer]SEMBLY Jonah Nova MD LAB_1 Performing Organization Address [facility] Phon e Number [facility] [address] [place] [phone] Blood Type (09/30/2021 6:27 PM SUPERVISOR [employer]ICATION [employer] ASSEMBLY) P athologist Signature ABO A 09/30/2021 [facility] BLOOD 7:23 PM [employer]OR [employer]ICATION [employer]SEMBL[employer] BANK RH Positive 09/30/2021 [facility] BLOOD 7:23 PM [employer]ICATION [employer]SEM[employer] BANK Specimen Anatomical Collection Method / Collection Time Recei shahid Time (Source) Location / Volume Laterality Blood Venipuncture / 09/30/2021 6:27 09/30/2021 6:46 Unknown PM [employer]ICATION [employer]SEMBL[employer] PM SUPERVISOR [employer]ICATION AND ASSEMBLY Jonah Nova MD LAB_1 Performing Organization Address [facility] Phon e Number [facility] [address] [place] [address] documented in this encounter Visit Diagnoses Diagnosis [...] not set up. Will try again later [employer] Plan of Care - Brenda Bar RN - 10/03/2021 3:24 PM CST [facility] Discharge Note - Nursing Admission Date/Time: [...] stored: Yes --- End of Report --- [employer] Plan of Care - Afshan Guajardo RN - 10/03/2021 3:09 PM CST I completed a full assessment and assessments as ordered and per policy on this patient during my work shift. Reassessments completed during my work shift are unchanged unless documented. [employer] Plan of Care - Dilcia Barr RN - 10/03/2021 2:02 PM CST [facility] Care Management Discharge Note Discharge Information: [...] to shower in basement) Contacts: Emergency Contacts Centrifuge Operator (Rel.) Home Phone Work Phone Mobile Phone Magali Luna (Spouse) [phone] -- -- Decline,Pt 03/23/2018 -- -- -- [...] Additional Comments: Case discussed in care rounds. Nurse Practitioner Physicians Assistant was notified that patient needing assistance with transportation home. I met with patient, he is needing a wheelchair ride home today. His will be home when he arrives but she is unable to drive. He has a ramp to enter the home and has [employer] PMAP. Ride re quested and obtained for 1415. PT recommending outpatient PT, pt prefers to go to [facility] for outpatient PT. Paged ortho commander internal affairs and obtained order which I printed and gave to the patient and instructed him to call [facility] and they will want him to bring printed order to appt. Dilcia Barr RN [employer] Plan of Care - Linda Longo RN - 10/03/2021 7:28 AM CST I completed a full assessment and assessments as ordered and per policy on this patient during my work shift. Reassessments completed during my work shift are unchanged unless documented. [employer] Plan of Care - Brenda Bar RN [...] my work shift are unchanged unless documented. [employer] Plan of Care - Kera Reeder RN - 10/02/2021 2:58 PM CST I completed a full assessment and assessments as ordered on this patient during my work shift. Reassessments completed during my work shift are unchanged unless documented. [employer] Plan of Care - Sommer Lowery RN - 10/02/2021 1:16 AM CST [facility] Plan of Care Note Assessment: Plan [...] unless documented. --- End of Report --- [employer] Plan of Care - Brenda Bar RN [...] willing to answer and let RN do. [employer] Plan of Care - Josep Cervantes MD [...] to the patient and agreed upon by [facility] care team. Josep Cervantes MD Orthopaedic Surgery, PGY-2 Pager: [phone] [employer] Plan of Care - Brenda Bar RN - 10/01/2021 5:06 PM CST [facility]. Practitioner Notified Note Name of Practitioner notified: Ortho consult Time of Practitioner notification: 5:08 PM Reason: E. Hol., [id number], Pt stating he will leave hospital without coming to floor. Not situationcan, security aware. Response: Ortho team coming up to talk to pt with security at bedside. Will notify pt at that time that is unable to come to floor. [employer] Plan of Care - Estephania Mejia RN - 10/01/2021 2:19 PM CST [facility] Plan of Care Note Assessment: aggression, [...] unless documented. --- End of Report --- [employer] Plan of Care - Ladan Najera RN - 10/01/2021 10:08 AM CST [facility]. Practitioner Notified Note Name of Practitioner notified: Dr Gottlieb Time of Practitioner notification: 10:08 AM Reason: Luna, Ed: Can you come back to patient in ST[facility] 2? Patient refusing blood products and needs to sign on consent. Thanks. Response: Will come see patient [employer] Plan of Care - Estephania Mejia RN - 10/01/2021 9:04 AM CST [facility] Nursing Pre-Op Note Admission Date/Time: 09/30/2021 5:33 PM Time of transport to the Operating Room: 09 Transported by: Litter/cart Pre-Op checklist complete?: yes [employer] Plan of Care - Diana Early RN - 10/01/2021 3:56 AM CST [facility] Plan of Care Note Assessment: Plan [...] two providers. Concerned about heather communicable diseases. Batch Mixer Operator stated this may delay his surgery. Patient states that he was being forced to get blood. Batch Mixer Operator explained the safety concerns of low hemoglobin and surgery. Patient stated he did not want to talk about it anymore. Aboutan hour later patient stated that he would take the blood under protest. Batch Mixer Operator clarified that this meant he was consenting. Patient confirmed. Started transfusion of 2 units. I completed a full assessment and assessments as ordered and per policy on this patient during my work shift. Reassessments completed during my work shift are unchanged unless documented. --- End of Report --- [employer] Plan of Care - Josep Cervantes MD [...] this country is ???going to [facility] . I recognized that thepatient has reservations [...] health. [facility] He repeatedly statedthat the only circumstances under which he would be willing to receive blood is if I personally drafted a statement or letter that would allow him to yudi me personally, his nurse, and [facility] if he received any sort of blood borne illness from a transfusion. I explained that [facility] does not have such statements. Ultimately, [...] Josep Cervantes MD Orthopaedic Surgery, PGY-2 Pager: [phone] [employer] Triage Assessment Note - Yari Adams RN - 09/30/2021 5:35 PM [employer] Patient arrived by [facility] from Hospital with chief complaint: Femur fracture Symptoms/background (EMS narrative): Pt. Was at home and slipped on the ice and fell on the left knee. CMS intact. Leg was splinted at [place] [facility]. Has been given dilaudid for pain. Interventions/abnormal vitals: VSS. 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 [employer] documented in this encounter Admitting Diagnoses Diagnosis [...] chewable tablet Given 10/03/2021 9:32 A M [employer]PER[employer] 1,000 mg 500-1,000 mg 500-1,000 mg, Oral, QID PRN, Heartburn, Dyspepsia, Starting on Thu09/30/21 at 2142, Until Thu10/03/21 at 1754, Each tablet provides 200 mg elemental calcium Given 10/02/2021 7:13 PM [employer] 1,000 mg Given 10/02/2021 2:30 PM [employer] 1,000 mg dextrose (D50) injection 25 g [...] tablet 500 mg Given 09/30/2021 10:35 PM SU[employer]VIS[employer]SEMBLY 500 mg 500 mg, Oral, Q6H PRN, [...] immediate release tablet Given 10/03/2021 2:44 PM [employer] 5 mg 5-10 mg 5-10 mg, Oral, Q4H PRN, Pain, Starting on Thu09/30/21 at 2142, Until Ruth 10/03/21 at 1754, Give PO opioid if able to take PO and pain not well controlled with other medications or interventions. Given 10/03/2021 9:32 AM SUPERVIS[employer]ICATION [employer]SEMBLY 10 mg Given 10/02/2021 11:09 AM [employer]SEMBLY 5 mg polyethylene glycol (MIRALAX) oral powde [...] Recently Administered Medications Times are shown in [employer]. Scheduled Medication Order 10/01/2021 10/02/2021 10/03/2021 acetaminophen [...] 1030 (Given - Provider: Pooja Whitlock APRN, HAND FUNNEL COATER) 2 g, Intravenous, Administer over 30 Min [...] Anika Lazo, RN)1535 (Given - Provider: Anika Lazo, SIMEON) 25-50 mcg, Intravenous, [id number], Pain, Starting on Thu10/01/21 at 1412, Until [...] Protocol, Starting on Thu09/30/21 at 2142, Until Rtuh 10/03/21 at 1754
Per Hypoglycemic episode: Give [...] Nausea/Vomiting. documented in this encounter Care Teams Drywall Hanger Relationship Specialty Start Date End Date Kevin Cobb MD PCP - General Family Practice 09/30/21 documented as of this encounter
--- OUTSIDE RECORDS SUMMARY | 2022-08-12 09:41 | XMS_ITS | Encounter Summary ---
:1960 Author Organization [facility] TechnologiesAdvanced [facility] MexicoDroid system master Address [address] [address] Care Team Providers Name Role Phone Cintia Cobb MD Primary Care Provider [phone] Reason for Visit Auth/Cert Specialty Diagnoses / [...] Expiration Date Visits Requ ested Visits Authorized [id number] 1 1 Encounter Details Date Type Department Care Team Description 10/01/2021 Anesthesia Event [facility] Operating Room Yasmany Lewis MBBS [address] [place] [address] [place], [place] [address]German MD [address] [place] [address] [place] [address] Anesthesia Record Procedure Summary Procedure Name Responsible [...] Electr onically signed by Pooja Whitlock APRN, [facility] 1449 An Stop Care transferred . Name [...] Pooja Noonan, Pooja Noonan, Time: 1024; Placed GAS WELDER APPRENTICE, [facility] GAS WELDER APPRENTICE, [facility] By: [facility]; Induction Type: Pre-O2, IV; Masking: Easy; ETT [...] Kelley DO - 10/01/2021 4:30 PM CST [facility] Anesthesia Post-op Note Patient: Ed [...] by: Jonah Kelley DO 10/01/2021 4:30 PM R PLANT OPERATOR APPRENTICE Anesthesia Preprocedure Evaluation - German Henry MD - 10/01/2021 10:02 AM CST [facility] Anesthesia Pre-op Evaluation Procedure: OPEN [...] QT 466 ms QTc 480 ms R [place] -89 degrees T [place] 68 degrees Physical Exam: BP (!) 140/83 [...] by: German Henry MD 10/01/2021 10:02 AM R PLANT OPERATOR APPRENTICE documented in this encounter Plan of Treatment Upcoming Encounters Date Type Specialty Care Team Description 09/15/2022 Appointment Orthopedics Delgado Gottlieb MD [address] [place], [place] [address] (Gavi presley) 10/08/2022 Appointment Orthopedics Delgado Gottlieb MD [address] [place], [place] [address] (Gavi presley) 05/27/2023 Appointment Chemo Therapy/Infusion Services documented as of this encounter Visit Diagnoses Not on filedocumented in this encounter Administered Medications Inactive Administered Medications - up to 3 most recent administrations Medication Order MAR Action Action Date Dose Rate Site albumin human Given 10/01/2021 12:51 PM POWER PLANT OPERATOR APPRENTICE 250 mL (ALBUMINAR,ALBUTEIN) 5 % infusion Intravenous, Starting on Thu10/01/21 at 1251, Until Thu10/01/21 at 1449 ceFAZolin in sodium chloride 0.9% (ANCEF) IVPB Given 0 10/01/2021 10:31 AM POWER PLANT OPERATOR APPRENTICE 2 g 2 g 2 g, Intravenous, Administer over 30 Minutes, ONCE (NON-SCHEDULED), Starting on Thu10/01/21 at 0828, For 1 dose, For patient weight less than or equal to 119 kg PRE-OP, Pre-op dexamethasone (DECADRON) injection Given 10/01/2021 10:37 AM POWER PLANT OPERATOR APPRENTICE 4 mg Intravenous, Starting on Thu10/01/21 at 1037, Until Thu10/01/21 at 1449 dexmedetomidine 20 mcg/5 mL injection Given 10/01/2021 2:20 PM POWER PLANT OPERATOR APPRENTICE 8 mcg Intravenous, Starting on Thu10/01/21 at 1420, Until Thu10/01/21 at 1449 ePHEDrine 5 mg/mL injection Given 10/01/2021 1:38 PM POWER PLANT OPERATOR APPRENTICE 5 mg Intravenous, Starting on Thu10/01/21 at 1159, Until Thu10/01/21 at 1449 Given 10/01/2021 12:16 PM POWER PLANT OPERATOR APPRENTICE 5 mg Given 10/01/2021 11:59 AM POWER PLANT OPERATOR APPRENTICE 5 mg fentaNYL (SUBLIMAZE) injection Given 10/01/2021 2:19 PM POWER PLANT OPERATOR APPRENTICE 0.5 mL Intravenous, Starting on Thu10/01/21 at 1017, Until Thu10/01/21 at 1449 Given 10/01/2021 2:17 PM POWER PLANT OPERATOR APPRENTICE 0.5 mL Given 10/01/2021 11:17 AM POWER PLANT OPERATOR APPRENTICE 1 mL lactated ringers infusion Started 10/01/2021 1:51 PM POWER PLANT OPERATOR APPRENTICE Intravenous, at 30 mL/hr, CONTINUOUS, Starting on Thu10/01/21 at 0845, If IV started. Continuous., Pre-op Restarted 10/01/2021 1:03 PM POWER PLANT OPERATOR APPRENTICE Restarted 10/01/2021 10:17 AM POWER PLANT OPERATOR APPRENTICE lidocaine PF (XYLOCAINE) 1 % injection Given 10/01/2021 10:23 AM POWER PLANT OPERATOR APPRENTICE 50 mg Intravenous, Starting on Thu10/01/21 at 1023 midazolam (VERSED) injection Given 10/01/2021 10:17 AM POWER PLANT OPERATOR APPRENTICE 2 mg Intravenous, Starting on Thu10/01/21 at 1017, Until Thu10/01/21 at 1449 ondansetron (ZOFRAN) injection Given 10/01/2021 1:56 PM POWER PLANT OPERATOR APPRENTICE 4 mg Intravenous, Starting on Thu10/01/21 at 1356, Until Thu10/01/21 at 1449 phenylephrine-NaCl 0.9% (KANA-SYNEPHRINE) Given 10/01/2021 1:38 P M POWER PLANT OPERATOR APPRENTICE 100 mcg injection Intravenous, Starting on Thu10/01/21 at 1033, Until Thu10/01/21 at 1449 Given 10/01/2021 1:27 PM POWER PLANT OPERATOR APPRENTICE 100 mcg Given 10/01/2021 1:14 PM POWER PLANT OPERATOR APPRENTICE 100 mcg propofol (aka diPRIvan) injection Given 10/01/2021 10:23 AM POWER PLANT OPERATOR APPRENTICE 100 mg Intravenous, Starting on Thu10/01/21 at 1023 rocuronium (ZEMURON) injection Given 10/01/2021 1:50 PM POWER PLANT OPERATOR APPRENTICE 10 mg Intravenous, Starting on Thu10/01/21 at 1029, Until Thu10/01/21 at 1449 Given 10/01/2021 1:17 PM POWER PLANT OPERATOR APPRENTICE 20 mg Given 10/01/2021 12:33 PM POWER PLANT OPERATOR APPRENTICE 20 mg succinylcholine (QUELICIN) injection Given 10/01/2021 10:23 AM POWER PLANT OPERATOR APPRENTICE 80 mg Intravenous, Starting on Thu10/01/21 at 1023, Until Thu10/01/21 at 1449 sugammadex (BRIDION) injection Given 10/01/2021 2:35 PM POWER PLANT OPERATOR APPRENTICE 200 mg Intravenous, Starting on Thu10/01/21 at 1435, Until Thu10/01/21 at 1449 tranexamic acid (CYKLOKAPRON) 1000 mg in Given 10/01/2021 10 :36 AM POWER PLANT OPERATOR APPRENTICE 1,000 mg sodium chloride 0.9% (10 mg/mL) 100 mL IVPB premix 1,000 mg, Intravenous, ONCE, On Thu10/01/21 at 0900, For 1 dose, Administer once at incision and once at start of closure., Pre-op tranexamic acid (CYKLOKAPRON) 1000 mg in Given 10/01/2021 1:59 P M POWER PLANT OPERATOR APPRENTICE 1,000 mg sodium chloride 0.9% (10 mg/mL) 100 mL IVPB premix 1,000 mg, Intravenous, ONCE, On Thu10/01/21 at 0900, For 1 dose, Administer once at incision and once at start of closure., Pre-op documented in this encounter Care Teams Meat Service Team Member Relationship Specialty Start Date End Date Cintia Cobb MD PCP - General Family Practice 09/30/21 documented as of this encounter
--- OUTSIDE RECORDS SUMMARY | 2022-08-12 09:41 | XMS_ITS | Encounter Summary ---
:1960 Author Organization [facility] Address [address] [address] Care Team Providers Name Role Phone Cintia Cobb MD Primary Care Provider [phone] Encounter Details Date Type Department Care Team Description 10/02/2021 Orders Only RH S9 Suzie Daigle, PA-C [address] [facility] [address] [place] [address] [place] [address] [phone] (Gavi presley) Social History Tobacco Use Types [...] 09/15/2022 Appointment Orthopedics Delgado Gottlieb MD [address] [place], [place] [address] (Gavi rk) 10/08/2022 Appointment Orthopedics Delgado Gottlieb MD [address] [place], [place] [address] (Wo rk) 05/27/2023 Appointment Chemo Therapy/Infusion Services documented as of this encounter Visit Diagnoses Not on filedocumented in this encounter Care Teams Lining Feller Blindstitch Relationship Specialty Start Date End Date Cintia Cobb MD PCP - General Family Practice 09/30/21 documented as of this encounter
--- OUTSIDE RECORDS SUMMARY | 2022-08-12 09:41 | XMS_ITS | Encounter Summary ---
:1960 Author Organization [facility]Northern [facility] CenterShoeD[facility] Address [address] [place] [address] Care Team Providers Name Role Phone Cintia Cobb MD Primary Care Provider [phone] Encounter Details Date Type Department Care Team Description 09/30/2021 Orders Only HIM DEPARTMENT Provider, Aguilar hernandez [place] [address] Social History Tobacco Use Types Packs/Day Years [...] 09/15/2022 Appointment Orthopedics Delgado Gottlieb MD [address] [place], [place] [address] (Gavi presley) 10/08/2022 Appointment Orthopedics Delgado [facility]lie[facility] MD [address] [facility] [place] [place] [address] (Gavi presley) 05/27/2023 Appointment [...] on filedocumented in this encounter Care Teams Sheet Manufacturing Supervisor Relationship Specialty Start Date End Date Cintia Cobb MD PCP - General Family Practice 09/30/21 documented as of this encounter
--- OUTSIDE RECORDS SUMMARY | 2022-08-12 09:41 | XMS_ITS | Encounter Summary ---
:1960 Author Organization [facility] Address [address] [address] Care Team Providers Name Role Phone Cintia Cobb MD Primary Care Provider [phone] Reason for Visit Auth/Cert Specialty Diagnoses / [...] Expiration Date Visits Requ ested Visits Authorized [id number] 1 1 Encounter Details Date Type Department Care Team Description 09/30/2021 Ancillary Procedure [facility] [address] [place] [address] Social History Tobacco Use Types Packs/Day Years [...] 09/15/2022 Appointment Orthopedics Delgado Gottlieb MD [address] [place] [phone] (Wo rk) 10/08/2022 Appointment Orthopedics Delgado Gottlieb MD [address] [place], [place] [address] (Gavi rk) 05/27/2023 Appointment Chemo Therapy/Infusion Services documented as of this encounter Procedures Procedure Name Priority Date/Time Associated Diagnosis Comme nts XR FEMUR LT 2 VIEWS STAT 09/30/2021 7:32 PM Re sults for this LOWER AP/LAT SUBSTATION TECHNICIAN procedure are i n the results section. XR KNEE LT 2 VIEWS STAT 09/30/2021 7:32 PM Res ults for this SUBSTATION TECHNICIAN procedure are i n the results section. XR PELVIS AP W STAT 09/30/2021 7:32 PM Results for this AP/LAT HIP LT SUBSTATION TECHNICIAN procedure are in the results section. documented in this encounter Results XR Femur Lt 2 Views Lower AP/Lat (09/30/2021 7:32 PM SUBSTATION TECHNICIAN) Anatomical Region Laterality Modality Lower Extremity, Leg, Thigh Computed Rad iography Specimen (Source) Anatomical Collection Method Collection Time Re ceived Time Location / / Volume Laterality 09/30/2021 7:32 PM SUBSTATION TECHNICIAN Narrative 09/30/2021 7:41 PM SUBSTATION TECHNICIAN EXAM: XR FEMUR LT 2 VIEWS LOWER AP/LAT LOCATION: [facility] DATE/TIME: 09/30/2021 7:32 PM INDICATION: Left [...] FEMUR LT 2 VIEWS LOWER AP/LAT LOCATION: [facility] DATE/TIME: 09/30/2021 7:32 PM INDICATION: Left [...] Knee Lt 2 Views (09/30/2021 7:32 PM SUBSTATION TECHNICIAN) Anatomical Region Laterality Modality Lower Extremity, Knee Computed Radiograp hy Specimen (Source) Anatomical Collection Method Collection Time Re ceived Time Location / / Volume Laterality 09/30/2021 7:32 PM SUBSTATION TECHNICIAN Narrative 09/30/2021 7:38 PM SUBSTATION TECHNICIAN EXAM: XR KNEE LT 2 VIEWS LOCATION: [...] W AP/Lat Hip Lt (09/30/2021 7:32 PM SUBSTATION TECHNICIAN) Anatomical Region Laterality Modality Pelvis, Hip Computed Radiography Specimen (Source) Anatomical Collection Method Collection Time Re ceived Time Location / / Volume Laterality 09/30/2021 7:32 PM SUBSTATION TECHNICIAN Narrative 09/30/2021 7:41 PM SUBSTATION TECHNICIAN EXAM: XR PELVIS AP W AP/LAT HIP [...] PELVIS AP W AP/LAT HIP LT LOCATION: [facility] DATE/TIME: 09/30/2021 7:32 PM INDICATION: Left [...] filedocumented in this encounter Care Teams Wet Cleaner Machine Relationship Specialty Start Date End Date Cintia Cobb MD PCP - General Family Practice 09/30/21 documented as of this encounter
--- OUTSIDE RECORDS SUMMARY | 2022-08-12 09:41 | XMS_ITS | Encounter Summary ---
:1960 Author Organization [facility] Address [address], [place] [address] Care Team Providers Name Role Phone Cintia Cobb MD Primary Care Provider [phone] Reason for Visit Auth/Cert Specialty Diagnoses / [...] Expiration Date Visits Requ ested Visits Authorized [id number] 1 1 Encounter Details Date Type Department Care Team Description 10/02/2021 Ancillary Procedure [facility] [address] [place] [id number] Social History Tobacco Use Types Packs/Day Years [...] Description 09/15/2022 Appointment Orthopedics Delgado Gottlieb MD [address] [place] [phone] (Wo rk) 10/08/2022 Appointment Orthopedics Delgado Gottlieb MD [address] [place], [place] [address] (Wo rk) 05/27/2023 Appointment Chemo Therapy/Infusion Services documented as of this encounter Procedures Procedure Name Priority Date/Time Associated Diagnosis Comme nts XR FEMUR LT 2 VIEWS Routine 10/02/2021 10:21 AM R esults for this RELATIONSHIP BANKER procedure are i n the results section. documented in this encounter Results XR Femur Lt 2 Views (10/02/2021 10:21 AM RELATIONSHIP BANKER) Anatomical Region Laterality Modality Lower Extremity, Leg, Thigh Computed Rad iography Specimen (Source) Anatomical Collection Method Collection Time Re ceived Time Location / / Volume Laterality 10/02/2021 10:21 AM RELATIONSHIP BANKER Narrative 10/02/2021 10:37 AM RELATIONSHIP BANKER EXAM: XR FEMUR LT 2 VIEWS LOCATION: [...] on filedocumented in this encounter Care Teams Veterinary Medicine Doctor Relationship Specialty Start Date End Date Cintia Cobb MD PCP - General Family Practice 09/30/21 documented as of this encounter
--- OUTSIDE RECORDS SUMMARY | 2022-08-12 09:41 | XMS_ITS | Encounter Summary ---
:1960 Author Organization [facility] Address [address], [place] [address] Care Team Providers Name Role Phone Kevin Bullock MD Primary Care Provider [phone] Reason for Referral Therapies (Routine) - New Request Specialty Diagnoses / Procedures Referred By Contact Refer red To Contact Diagnoses Closed fracture of distal end of left femur, unspecified fracture morphology, initial encounter (HRC) Martha Gottlieb MD [address] [place] [address] Referral ID Status Reason Start Date Expiration Date Visits V isits Requested Authorized [id number] New Request 10/03/2021 10/03/2022 1 1 Scheduling Instructions Your provider has recommended an appoint ment with a [facility] Physical Therapist. Call [facility] at . We suggest you call your health insurance company about your coverage an d benefits for this appointment. R RELATIONS OFFICER Consult/Transfer Care (Routine) - New Request Specialty Diagnoses / Procedures Referred By Contact Refer red To Contact Diagnoses Closed fracture of distal end of left femur, unspecified fracture morphology, initial encounter (HRC) Suzie Daigle PA-C [address] [place] [address] Referral ID Status Reason Start Date Expiration Date Visits V isits Requested Authorized [id number] New Request 10/02/2021 01/01/2023 1 1 Scheduling Instructions Your provider has recommended an appoint ment with formerly [facility]. You may call to schedule your appointment. We suggest you call your health insurance company a bout your coverage and benefits for this appointment. R RELATIONS OFFICER Procedure/Equipment (Routine) - Incomplete Specialty Diagnoses / Procedures Referred By Contact Refer red To Contact Procedures Suzie Daigle PA-C XR Femur Lt 2 Views [address] [place] [address] Referral ID Status Reason Start Date Expiration Date Visits V isits Requested Authorized [id number] Incomplete 10/01/2021 12/31/2022 1 1 R RELATIONS OFFICER (Routine) - Incomplete Specialty Diagnoses / Procedures Referred By Contact Refer red To Contact Procedures Martha Gottlieb MD XR C-Arm 3.5-[address] [place], [place] [address]EN [facility] XR C-Arm 2.5-3 Hours [place], [place] [address] Referral ID Status Reason Start Date Expiration Date Visits V isits Requested Authorized [id number] Incomplete 10/01/2021 12/31/2022 1 1 R RELATIONS OFFICER Procedure/Equipment (Routine) - Incomplete Specialty Diagnoses / Procedures Referred By Contact Refer red To Contact Diagnoses Closed fracture of distal end of left femur, unspecified fracture morphology, initial encounter (HRC) Jonah Nova MD Procedures Case Request OR - Orthopedic Surgery: OPEN REDUCTION INTERNAL FIXATION SUPRACONDYLAR DISTAL FEMUR FRACTURE, INSERTION INTRAMEDULLARY NAIL SUPRACONDYLAR DISTAL FEMUR FRACTURE [address] [place] [address] Referral ID Status Reason Start Date Expiration Date Visits V isits Requested Authorized [id number] Incomplete 09/30/2021 12/30/2022 1 1 R RELATIONS OFFICER Procedure/Equipment (Routine) - Incomplete Specialty Diagnoses / Procedures Referred By Contact Refer red To Contact Procedures Francisca Harvey MD XR Femur Lt 2 Views Lower [address] [facility] [place] [address] XR Femur Lt 2 Views Referral ID Status Reason Start Date Expiration Date Visits V isits Requested Authorized [id number] Incomplete 09/30/2021 12/30/2022 1 1 R RELATIONS OFFICER Procedure/Equipment (Routine) - Incomplete Specialty Diagnoses / Procedures Referred By Contact Refer red To Contact Procedures Jonah Nova MD XR Knee Lt 2 Views [address] [place] [address] Referral ID Status Reason Start Date Expiration Date Visits V isits Requested Authorized [id number] Incomplete 09/30/2021 12/30/2022 1 1 R RELATIONS OFFICER Procedure/Equipment (Routine) - Incomplete Specialty Diagnoses / Procedures Referred By Contact Refer red To Contact Procedures Jonah Nova MD XR Pelvis AP W AP/Lat Hip Lt [address] [place] [address] Referral ID Status Reason Start Date Expiration Date Visits V isits Requested Authorized [id number] Incomplete 09/30/2021 12/30/2022 1 1 R RELATIONS OFFICER Reason for Visit Reason Comments FRACTURE Auth/Cert [...] Expiration Date Visits Requ ested Visits Authorized [id number] 1 1 Encounter Details Date Type Department Care Team Description 09/30/2021 - Hospital Encounter RH S9 Jonah Nova MD [address] [place] [address] Closed fracture of distal end of left fe mur, unspecified fracture morphology, initial encounter (HRC) (Primary Dx); 10/03/2021 640 [facility] Josep Peck MD [address] [place] [address] Pain; [place], [place] Kay Mcadams, PA-C [address] [place] [address] Diabetes mellitus type II (HRC); [address] Martha Gottlieb MD [address] [place] [address] Diabetic peripheral neuropathy (HRC); [phone] Pain, lumbar re gion (HRC); Other chronic [...] Comments Blood Pressure 128/76 10/03/2021 1:54 PM DONOR RELATIONS OFFICER Pulse 79 10/03/2021 1:54 PM DONOR RELATIONS OFFICER Temperature 37 ??C (98.6 ??F) 10/03/2021 1:54 PM DONOR RELATIONS OFFICER Respiratory Rate 18 10/03/2021 1:54 PM DONOR RELATIONS OFFICER Oxygen Saturation 95% 10/03/2021 1:54 PM DONOR RELATIONS OFFICER Inhaled Oxygen Concentration - - Weight 82.5 kg (181 lb 14.4 oz) 10/01/2021 2:00 AM DONOR RELATIONS OFFICER Height 182.9 cm (6') 10/02/2021 12:00 AM DONOR RELATIONS OFFICER Body Mass Index 24.67 10/01/2021 2:00 AM DONOR RELATIONS OFFICER documented in this encounter Discharge Summaries Suzie [...] Date: 10/16/2021 Time: 10:20a Provider: Dr. Gottlieb formerly [facility] Special[facility]: Orthopaedic & Sports Medicine; ( FAMILY OF CARE REFERRAL) [phone]; [address] [place] [address] References: Specialty Connection Sari Melendrez Consult Page Question: Reason for visit? Answer: s/p ORIF IMN L femur Discharge Practitioner Electronic Signature Comments: Suzie Daigle PA-C 10/02/2021 8:43 AM These orders have been electronically signed. (In accordance with [place] Fed. Regulation Set, Fed A0232 - Types of Authentication) Weight bearing as tolerated Comments: You may resume normal weight bearing on the affected limb(s) as tolerated. Discharge Diet (see comments) Comments: Diabetic Follow Up: The patient will follow up with Martha Gottlieb MD in 2 weeks. At follow up, xrays should include L femur. This note completed by: Suzie Daigle PA-C R RELATIONS OFFICER documented in this encounter Discharge Instructions Discharge InstructionsAisha Workman RN - 10/03/2021 8:15 AM CST Clinic Phone Numbers ??? [facility]: [phone] ??? [facility] Orthopa[facility]: [phone] Labs and Warfarin (Coumadin) Information No data found. This information has been sent to the following clinic:{[facility] FAX DESTINATION:[id number]} [facility] ??? Always wash your hands [...] density, or have had a fracture, call [phone] to schedule an appointment. R RELATIONS OFFICER documented in this encounter Medications at Time [...] Thompson MD - 10/03/2021 5:27 AM CST [facility] Orthopedic Surgery Progress Note Subjective: Patient [...] Edward Thompson MD Orthopedic Surgery, PGY-2 Pager: [phone] R RELATIONS OFFICER Kay Mcadams PA-C - 10/02/2021 2:52 PM [...] Vera MD - 10/02/2021 5:07 AM CST [facility] Orthopedic Surgery Progress Note Subjective: Last [...] evaluated the patient. Nathen Burger MD, PGY-1 [facility] Orthopedic Surgery Pager: [phone] 10/02/2021 5:07 AM R RELATIONS OFFICER Anika Lazo RN - 10/01/2021 4:21 PM CST I completed a full assessment and assessments as ordered and per policy on this patient during my work shift. Reassessments completed during my work shift are unchanged unless documented. R RELATIONS OFFICER Kay Mcadams PA-C - 10/01/2021 4:00 PM CST Brief HM Note Unable to see patient today as he has been in the OR. Recommend repeat Hgb and consideration of IV iron if pt agreeable. Medicine will f/u tomorrow. Kay Mcadams PA-C Department [facility] Medicine R RELATIONS OFFICER Josep Cervantes MD - 10/01/2021 5:40 AM CST [facility] Orthopedic Surgery Progress Note Subjective: Patient [...] 2-4 days. F/U: BEE Cervantes MD, PGY-2 [facility] Orthopedic Surgery Pager: [phone] 10/01/2021 5:41 AM R RELATIONS OFFICER documented in this encounter Procedure Notes Suzie Daigle PA-C - 10/01/2021 2:04 PM CST [facility] Brief Operative Progress Note Surgery Date: [...] left femur x-rays needed. Suzie Daigle PA-C R RELATIONS OFFICER Martha Gottlieb MD - 10/01/2021 12:00 AM CST NAME: [facility]: [id number] OPERATIVE REPORT DATE OF SURGERY: 10/01/2021 : [...] after the injury. He was brought to [facility] emergency department, where he was found to have a comminuted and displaced left supracondylar distal femur fracture. This was a closed injury, and he was neurovascularly intact. Of note, the patient had sustained an ipsilateral left intertrochanteric femur fracture in August of 2019for which he underwent short intramedullary nailing in [place], [place]. Prior to this most recent injury, the patient was ambulatory with a cane. 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 The IT band laterally was closed with #1 Vicryl idakpe-pn-xilps sutures. All skin incisions were then closed with 2-0 Vicryl buried deepdermal sutures and chapis. A sterile compressive dressing was then applied and finally the leg was wrapped in a double length 6-inch Carmita wrap. The patient was transferred back to his hospital bed, andthe Munoz catheter was removed. He was awoken from anesthesia without incident and taken to the [facility] room in stable condition. COMPLICATIONS: None. [...] of the procedure. MARTHA GOTTLIEB MD RDW/AQS /[id number] R RELATIONS OFFICER documented in this encounter Consult Notes Jaja Amor PA-C - 10/02/2021 10:40 AM CSTAssociated Order(s): ENDOCRINE CONSULT See consult note 10/01. Will continue to follow peripherally x24 hours. Glucose remains stable. Jaja Amor PA-C Endocrinology R RELATIONS OFFICER Padmini Lima APRN, CNP - 10/01/2021 2:36 [...] you, Padmini Lima APRN, KORIN, Endocrinology nonbillable R RELATIONS OFFICER Keyla Gilbert APRN, KORIN - 10/01/2021 7:20 [...] a cane at baseline Works as a truckload checker Additional Osteoporosis Risk Factors: Tobacco/Alcohol: No current [...] for the patient. Keyla Gilbert APRN, KORIN R RELATIONS OFFICER Ted Burdick MD - 09/30/2021 9:29 PM CST [facility] Pre-operative Exam Patient Name: Noemí Luna [...] JACKSON. 3.9 % 30-day risk of , PA, or cardiac arrest per RCRI. Neither of [...] extensive explanations of risks of anemia pre-operatively (PA, , etc) and screening for infections of [...] Didn't lose consciousness. Didn't hit head. 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 Worried that he will lose everything if [...] surgery on 10/01/[address] Peck at [facility]. Pre-operative Screening Questions: Tightening or pressure [...] Procedure: ESOPHAGOGASTRODUODENOSCOPY; Surgeon: Rene Carlson M.D.; Location: [facility] GI LAB?? Medical devices from this surgery are in the Medical Devices section.?? CARDIAC PACEMAKER PLACEMENT ? OPEN REDUCTION INTERNAL FIXATION FEMUR 08/13/2019 Hip/Left Procedure: OPEN REDUCTION INTERNAL FIXATION LEFT FEMUR; Surgeon: John Norman M.D.; Location: [facility] OR?? Medical devices from this surgery are [...] conditions: No # Acute coronary syndrome # PA < one month ago # decompensated heart [...] CC: consult --- End of Report --- R RELATIONS OFFICER Martha Gottlieb MD - 09/30/2021 6:15 PM [...] obstruction who presentsas a transfer from the [place] ED with left distal thigh pain after [...] femur fracture by Dr. John Norman in [place], [place]. Location: Left distal thigh Time of Onset: today Severity: 8/10 Quality: sharp Radiation: none Exacerbating: movement, WB Alleviating: rest Associated symptoms: none Patient has been NPO since 1999 on 09/29/21. Patient lives with his and dog. Patient ambulates with a cane. 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 If there is no reply, if it is a weekend, or if it is after hours, then please page the orthopedic surgery service pager at [phone] Attestation: I saw and evaluated this patient and we have discussed the plan of care with the resident. I have personally reviewed the patient's imaging and laboratory data. I agree with the findings as detailed inthe resident's note. Martha Gottlieb MD Telephone Station Repairer [facility] Department of Orthopaedic Surgery [facility] R RELATIONS OFFICER documented in this encounter ED Notes Jonah Nova MD - 09/30/2021 6:14 PM CST [facility] Emergency Department Attending Supervision Note Pt [...] and screen Admit Author: Jonah Nova MD R RELATIONS OFFICER Francisca Harvey MD - 09/30/2021 5:45 PM CST [facility] Emergency Medicine Visit Note Chief Complaint: [...] his knee and was brought to the [place] ED for evaluation. There, was found to [...] and left knee imaging as images from [place] of the left knee are not available. [...] femur, unspecified fracture morphology, initial encounter (HRC) R RELATIONS OFFICER Juan Miguel Rios MD - 09/30/2021 4:01 PM CST Referred from [facility] by MD for L femur fx. Background/plan: Slipped and fell this morning. L distal femur fx. CMS intact. No other hinjury. Noton anticoag. VSS Covid negative. Needs ortho Means of arrival: EMS Call back: none R RELATIONS OFFICER documented in this encounter Plan of Treatment Upcoming Encounters Date Type Specialty Care Team Description 09/15/2022 Appointment Orthopedics Martha Gottlieb MD [address] [place], [place] [address] (Gavi presley) 10/08/2022 Appointment Orthopedics Martha Gottlieb MD [address] [place], [place] [address] (Gavi presley) 05/27/2023 Appointment Chemo Therapy/Infusion Services Pending Results Name Type Priority Associated Diagnoses Date/Ti me Transfuse RBC Nursing Transfusion Routine 022 3:23 AM DONOR RELATIONS OFFICER Scheduled Referrals Name Type Priority Associated Diagnoses [...] 10/02/2021 10:21 Resu lts for this AM DONOR RELATIONS OFFICER procedure are i n the results section. VITAMIN D 25-HYDROXY, Routine 10/02/2021 8:22 Res ults for this TOTAL AM DONOR RELATIONS OFFICER procedure are i n the results section. INTACT PTH Routine 10/02/2021 8:22 Results for this AM DONOR RELATIONS OFFICER procedure are i n the results section. COMP METABOLIC PANEL Routine 10/02/2021 8:22 Resu lts for this AM DONOR RELATIONS OFFICER procedure are i n the results section. TSH, SENSITIVE Routine 10/02/2021 8:22 Results fo r this AM DONOR RELATIONS OFFICER procedure are i n the results section. COMPLETE BLOOD COUNT-NO Routine 10/02/2021 8:22 R esults for this DIFF AM DONOR RELATIONS OFFICER procedure are i n the results section. GLUCOSE, WHOLE BLOOD POCT Routine 10/01/2021 3:00 Results for this PM DONOR RELATIONS OFFICER procedure are i n the results section. XR C-ARM 3.5-4 HOURS Routine 10/01/2021 2:11 Resu lts for this PM DONOR RELATIONS OFFICER procedure are i n the results section. HEMOGLOBIN, MEASURED POCT Routine 10/01/2021 10:52 Results for this AM DONOR RELATIONS OFFICER procedure are i n the results section. GLUCOSE, WHOLE BLOOD POCT Routine 10/01/2021 10:48 Results for this AM DONOR RELATIONS OFFICER procedure are i n the results section. INSERTION INTRAMEDULLARY 10/01/2021 9:59 Closed fractu re of NAIL FEMUR AM DONOR RELATIONS OFFICER distal end of left femur, unspecified fracture morphology, initial encounter (HRC) OPEN REDUCTION INTERNAL 10/01/2021 9:59 Closed fractur e of FIXATION DISTAL FEMUR AM DONOR RELATIONS OFFICER distal end of left FRACTURE femur, unspecified fracture morphology, initial encounter (HRC) GLUCOSE, WHOLE BLOOD POCT Routine 10/01/2021 9:16 Results for this AM DONOR RELATIONS OFFICER procedure are i n the results section. ECG 12-LEAD ROUTINE(LAB Routine 10/01/2021 6:20 R esults for this PERFORM) AM DONOR RELATIONS OFFICER procedure are i n the results section. 16910 ELECTROCARDIOGRAM STAT 10/01/2021 6:14 R esults for this TRACING AM DONOR RELATIONS OFFICER procedure are i n the results section. IV INSERTION(LAB TO STAT 10/01/2021 2:34 Resul ts for this PERFORM) AM DONOR RELATIONS OFFICER procedure are i n the results section. PREP RBC LR Routine 09/30/2021 11:01 Results for this PM DONOR RELATIONS OFFICER procedure are i n the results section. XR PELVIS AP W AP/LAT HIP STAT 09/30/2021 7:32 Results for this LT PM DONOR RELATIONS OFFICER procedure are i n the results section. XR FEMUR LT 2 VIEWS LOWER STAT 09/30/2021 7:32 Results for this AP/LAT PM DONOR RELATIONS OFFICER procedure are i n the results section. XR KNEE LT 2 VIEWS STAT 09/30/2021 7:32 Result s for this PM DONOR RELATIONS OFFICER procedure are i n the results section. CBC AND DIFFERENTIAL Routine 09/30/2021 7:02 Resu lts for this PANEL PM DONOR RELATIONS OFFICER procedure are i n the results section. BT SECOND DRAW Routine 09/30/2021 7:02 Results fo r this PM DONOR RELATIONS OFFICER procedure are i n the results section. COMPLETE BLOOD Routine 09/30/2021 7:02 Results fo r this COUNT-W/DIFF PM DONOR RELATIONS OFFICER procedure are i n the results section. BASIC METABOLIC PANEL Routine 09/30/2021 7:02 Res ults for this PM DONOR RELATIONS OFFICER procedure are i n the results section. DIFFERENTIAL Routine 09/30/2021 7:02 Results for this PM DONOR RELATIONS OFFICER procedure are i n the results section. FERRITIN Add-On 09/30/2021 7:02 Results for this PM DONOR RELATIONS OFFICER procedure are i n the results section. IRON PROFILE Add-On 09/30/2021 7:02 Results for this (IRON,TIBC,%SAT.(CALC)) PM DONOR RELATIONS OFFICER proc edure are in the results section. TYPE AND SCREEN STAT 09/30/2021 6:27 Results f or this PM DONOR RELATIONS OFFICER procedure are i n the results section. ANTIBODY SCREEN STAT 09/30/2021 6:27 Results f or this PM DONOR RELATIONS OFFICER procedure are i n the results section. BLOOD TYPE STAT 09/30/2021 6:27 Results for this PM DONOR RELATIONS OFFICER procedure are i n the results section. PATH REVIEW (LAB USE Routine 09/30/2021 6:27 Resu lts for this ONLY) PM DONOR RELATIONS OFFICER procedure are i n the results section. APTT (ACTIVATED PARTIAL Routine 09/30/2021 6:27 R esults for this THROMBOPLASTIN TIME PM DONOR RELATIONS OFFICER procedur e are in the results section. HEMOGLOBIN, BLOOD STAT 09/30/2021 6:27 Results for this PM DONOR RELATIONS OFFICER procedure are i n the results section. INR/PROTIME Routine 09/30/2021 6:27 Results for this PM DONOR RELATIONS OFFICER procedure are i n the results section. documented in this encounter Results XR Femur Lt 2 Views (10/02/2021 10:21 AM DONOR RELATIONS OFFICER) Anatomical Region Laterality Modality Lower Extremity, Leg, Thigh Computed Rad iography Specimen (Source) Anatomical Collection Method Collection Time Re ceived Time Location / / Volume Laterality 10/02/2021 10:21 AM DONOR RELATIONS OFFICER Narrative 10/02/2021 10:37 AM DONOR RELATIONS OFFICER EXAM: XR FEMUR LT 2 VIEWS LOCATION: [...] D 25 HYDROXY, TOTAL (10/02/2021 8:22 AM DONOR RELATIONS OFFICER) Patholo gist Method Time Signature Vitamin D, 58 30 - 80 10/02/2021 [facility] 25-OH, Total ng/mL 12:54 PM DONOR RELATIONS OFFICER CENTRAL LAB Specimen Anatomical Collection Method / Collection Time Recei shahid Time (Source) Location / Volume Laterality Blood Venipuncture 10/02/2021 8:22 10/02/2021 8 :32 Butterfly / Unknown AM DONOR RELATIONS OFFICER AM DONOR RELATIONS OFFICER Keyla Gilbert APRN, CNP LAB_1 Performing Organization Address City/[facility]/ZIP Code Phon e Number [facility] CENTRAL LAB [address] [address] TSH (10/02/2021 8:22 AM DONOR RELATIONS OFFICER) athologist Signature TSH, Sensitive 0.31 0.30 - 10/02/2021 [facility] 4.50 9:37 AM [facility] uIU/mL Specimen Anatomical Collection Method / Collection Time Recei shahid Time (Source) Location / Volume Laterality Blood Venipuncture 10/02/2021 8:22 10/02/2021 8 :33 Butterfly / Unknown AM DONOR RELATIONS OFFICER AM DONOR RELATIONS OFFICER Keyla Gilbert APRN, CNP LAB_1 Performing Organization Address City/[facility]/ZIP Code Phon e Number [address] [address] (ABNORMAL) Comp Metabolic Panel (10/02/2021 8:22 AM DONOR RELATIONS OFFICER) Analysis Performed At Patho logist Time Signature Sodium 137 136 - 145 10/02/2021 [facility] mmol/L 9:19 AM [facility] Potassium 4.2 3.5 - 5.1 10/02/2021 [facility] mmol/L 9:19 AM [facility] Chloride 108 98 - 109 10/02/2021 [facility] mmol/L 9:19 AM [facility] CO2 23 20 - 29 10/02/2021 [facility] mmol/L 9:19 AM [facility] Anion Gap 6 (L) 7 - 16 10/02/2021 [facility] mmol/L 9:19 AM [facility] Calcium 8.4 8.4 - 10.4 10/02/2021 [facility] mg/dL 9:19 AM [facility] BUN 30 (H) 7 - 26 10/02/2021 [facility] mg/dL 9:19 AM [facility] Creatinine 0.96 0.73 - 10/02/2021 [facility] 1.18 mg/dL 9:19 AM [facility] GFR, Estimated >60 >60 10/02/2021 [facility] mL/min/1.7 9:19 AM [facility] 3m2 Alkaline 42 40 - 150 10/02/2021 [facility] Phosphatase U/L 9:19 AM [facility] AST (SGOT) 12 10 - 40 10/02/2021 [facility] U/L 9:19 AM [facility] ALT (SGPT) 13 0 - 55 U/L 10/02/2021 [facility] 9:19 AM [facility] Bilirubin, Total 0.2 0.2 - 1.2 10/02/2021 [facility] mg/dL 9:19 AM [facility] Protein, Total 5.5 (L) 6.4 - 8.3 10/02/2021 [facility] g/dL 9:19 AM [facility] Albumin 3.1 (L) 3.5 - 5.0 10/02/2021 [facility] g/dL 9:19 AM [facility] Glucose 116 (H) 70 - 100 10/02/2021 [facility] mg/dL 9:19 AM [facility] Comment: The given reference range is fo r the fasting state. Non-fasting reference range for glucose is 70 - 180 mg/dL. Specimen Anatomical Collection Method / Collection Time Recei shahid Time (Source) Location / Volume Laterality Blood Venipuncture 10/02/2021 8:22 10/02/2021 8 :33 Butterfly / Unknown AM DONOR RELATIONS OFFICER AM DONOR RELATIONS OFFICER Keyla Gilbert RIGHT OF WAY BUYER, [employer]LECT[employer]QUIPMENT LAB_1 Performing Organization Address City/State/ZIP Code Phon e Number [address] [address] (ABNORMAL) Complete Blood Count-No Diff (10/02/2021 8:22 AM DONOR RELATIONS OFFICER) Analysis Performed At Patho logist Time Signature WBC 7.5 3.5 - 10.5 10/02/2021 [facility] x10(9)/L 9:19 AM [facility] RBC 2.41 (L) 4.32 - 10/02/2021 [facility] 5.72 9:19 AM [facility] x10(12)/L Hemoglobin 5.6 (LL) 13.5 - 10/02/2021 [facility] 17.5 g/dL 9:19 AM [facility] HCT 19.3 (L) 38.8 - 10/02/2021 [facility] 50.0 % 9:19 AM [facility] MCV 80.1 80.0 - 10/02/2021 [facility] 100.0 fL 9:19 AM [facility] MCH 23.2 (L) 27.6 - 10/02/2021 [facility] 33.3 pg 9:19 AM [facility] MCHC 29.0 (L) 31.5 - 10/02/2021 [facility] 35.2 g/dL 9:19 AM [facility] RDW 17.2 (H) 11.9 - 10/02/2021 [facility] 15.5 % 9:19 AM [facility] Platelets 130 (L) 150 - 450 10/02/2021 [facility] x10(9)/L 9:19 AM [facility] Automated NRBC 0 <=0 /100 10/02/2021 [facility] WBC 9:19 AM [facility] [facility] Specimen Anatomical Collection Method / Collection Time Recei shahid Time (Source) Location / Volume Laterality Blood Venipuncture 10/02/2021 8:22 10/02/2021 8 :33 Butterfly / Unknown AM DONOR RELATIONS OFFICER AM DONOR RELATIONS OFFICER Keyla Gilbert APRN, KORIN LAB_1 Performing Organization Address City/State/ZIP Code Phon e Number [address] [address] Intact PTH (10/02/2021 8:22 AM DONOR RELATIONS OFFICER) P athologist Signature Intact PTH 96 10 - 100 10/02/2021 [facility] pg/mL 9:37 AM [facility] Specimen Anatomical Collection Method / Collection Time Recei shahid Time (Source) Location / Volume Laterality Blood Venipuncture 10/02/2021 8:22 10/02/2021 8 :33 Butterfly / Unknown AM DONOR RELATIONS OFFICER AM DONOR RELATIONS OFFICER Keyla Gilbert APRN, CNP LAB_1 Performing Organization Address [facility] Phon e Number [address] [address] Glucose, Whole Blood POCT (10/01/2021 3:00 PM DONOR RELATIONS OFFICER) Patholo gist Method Time Signature Glucose, Whole 166 70 - 180 10/01/2021 [facility] Blood mg/dL 3:01 PM [facility] REL[facility] POCT Comment 1 MD Notified 10/01/2021 [facility] 3:01 PM DON[facility] RELATIONS OFFICER [facility]OSP[facility] Performing RCLAB PACU 10/01/2021 [facility] Location 3:01 PM [facility] Specimen Anatomical Collection Method Collection Time Receive d Time (Source) Location / / Volume Laterality Blood 10/01/2021 3:00 PM 3:01 DONOR RELATIONS OFFICER PM DONOR RELATIONS OFFICER Martha Gottlieb MD LAB_1 Performing Organization Address [facility] Phon e Number [address] [address] XR C-Arm 3.5-4 Hours (10/01/2021 2:11 PM DONOR RELATIONS OFFICER) Anatomical Region Laterality Modality X-Ray Angiography Specimen (Source) Anatomical Location Collection Method / Collectio n Time Received Time / Laterality Volume Narrative 10/01/2021 2:12 PM DONOR RELATIONS OFFICER Fluoroscopy provided by a sterile processing technologist. Exact fluoroscopy time is documented in end of exam information in EPIC Martha Gottlieb MD RAD GD (ABNORMAL) Hemoglobin, Measured POCT (10/01/2021 10:52 AM DONOR RELATIONS OFFICER) Analysis Performed At Patho logist Time Signature Hemoglobin 8.5 (L) 13.5 - 10/03/2021 [facility] 17.5 g/dL 7:17 AM DON[facility] RELATIONS OFFICER [facility]OSPITAL Performing RCLAB OR 10/03/2021 [facility] Location 7:17 AM [facility] Specimen Anatomical Collection Method Collection Time Receive d Time (Source) Location / / Volume Laterality Blood 10/01/2021 10:52 10/03/2021 7:17 AM DONOR RELATIONS OFFICER AM DONOR RELATIONS OFFICER Martha Gottlieb MD LAB_1 Performing Organization Address City/[facility]/ZIP Code Phon e Number [address] [address] Glucose, Whole Blood POCT (10/01/2021 10:48 AM DONOR RELATIONS OFFICER) [facility] Method Time Signature Glucose, Whole 103 70 - 180 10/01/2021 [facility] Blood mg/dL 10:50 AM [facility] POCT Comment 1 No Action 10/01/2021 [facility] Required 10:50 AM [facility] Performing RCLAB OR 10/01/2021 [facility] Location 10:50 AM [facility] Specimen Anatomical Collection Method Collection Time Receive d Time (Source) Location / / Volume Laterality Blood 10/01/2021 10:48 10/01/2021 AM DONOR RELATIONS OFFICER 10:50 AM DONOR RELATIONS OFFICER Martha Gottlieb MD LAB_1 Performing Organization Address [facility]/ZIP Code Phon e Number [address] [address] Glucose, Whole Blood POCT (10/01/2021 9:16 AM DONOR RELATIONS OFFICER) [facility] Method Time Signature Glucose, Whole 106 70 - 180 10/01/2021 [facility] Blood mg/dL 9:17 AM [facility] Performing RCLAB SDS 10/01/2021 [facility] Location 9:17 AM [facility] Specimen Anatomical Collection Method Collection Time Receive d Time (Source) Location / / Volume Laterality Blood 10/01/2021 9:16 AM 9:17 DONOR RELATIONS OFFICER AM DONOR RELATIONS OFFICER Martha Gottlieb MD LAB_1 Performing Organization Address [facility]/ZIP Code Phon e Number [address] [address] Transfuse RBC (10/01/2021 8:38 AM DONOR RELATIONS OFFICER) Josep Peck MD ET NURSING BLOOD ADMIN ECG 12-Lead Routine (Lab perform) (10/01/2021 6:20 AM DONOR RELATIONS OFFICER) athologist Signature EKG Completed 10/01/2021 [facility] 11:02 AM [facility] Specimen Anatomical Collection Method Collection Time Receive d Time (Source) Location / / Volume Laterality Other Specimen Non-blood 10/01/2021 6:20 AM 022 9:57 Type Collection / DONOR RELATIONS OFFICER AM DONOR RELATIONS OFFICER Unknown Óscar Lindsay Mendez BROWNE LAB_1 Performing Organization Address [facility]/ZIP [facility] Phon e Number [address] [address] Ecg 12-Lead Routine (MUSE) (10/01/2021 6:14 AM DONOR RELATIONS OFFICER) P athologist Signature Ventricular Rate 64 BPM [facility] Atrial Rate 64 BPM [facility] P-R Interval 448 ms [facility] QRS Duration 176 ms [facility] QT 466 ms [facility] QTc 480 ms [facility] R [place] -89 degrees MUSE [facility] T [place] 68 degrees MUSE [facility] Specimen (Source) Anatomical Collection Method Collection Time Re ceived Time Location / / Volume Laterality 10/01/2021 6:14 AM DONOR RELATIONS OFFICER Narrative MUSE [facility] - 10/01/2021 2:40 PM DONOR RELATIONS OFFICER Atrial-sensed ventricular-paced rhythm with prolonged AV conduction Abnormal ECG No previous ECGs available Confirmed by Pancho Dangelo ([id number]) on 10/01/19 2:40:30 PM Procedure Note Pancho Dangelo MD - 10/01/2021 Atrial-sensed ventricular-paced rhythm w ith prolonged AV conduction Abnormal ECG No previous ECGs available Confirmed by Pancho Dangelo ([id number]) on 10/01/19 2:40:30 PM Óscar Simms DO EKG Performing Organization Address [facility] Phon e Number [facility] [address] [place] [address] IV Insertion, LST Perform (10/01/2021 2:34 AM DONOR RELATIONS OFFICER) athologist Signature IV INSERTION, Done 10/01/2021 [facility] LST PERFORM 5:03 AM DONOR RELATIONS OFFICER [facility]OSP[facility] (LAB) Specimen Anatomical Collection Method / Collection Time Recei shahid Time (Source) Location / Volume Laterality Other Specimen Venipuncture 10/01/2021 2:34 10/01/2021 3:20 Type Butterfly / Unknown AM DONOR RELATIONS OFFICER AM DONOR RELATIONS OFFICER Josep Peck MD LAB_1 Performing Organization Address [facility]/ZIP [facility] Phon e Number [address] [address] Prep RBC: , 2 Units (09/30/2021 11:01 PM DONOR RELATIONS OFFICER) Component Value Ref Test Analysis Performed At [facility] gist Range Method Time Signature BLOOD PRODUCT [id number] [facility] CODE BLOOD BANK BLOOD UNIT NUMBER [id number] [facility] S BLOOD [facility] CROSSMATCH Compatible [facility] INTERPRETATION BLOOD BANK BLOOD DISPENSE Transfused [facility] STATUS BLOOD B[facility] Unit Expiration [facility] Date BLOOD BANK UNIT BT BARCODE 6200 [facility] PRODUCT VOL ML 400 [facility] CODING SYSTEM ISBT [facility] PRODUCT RBC LR [facility] BLOOD PRODUCT [id number] [facility] CODE BLOOD BANK BLOOD UNIT NUMBER [id number] [facility] BLOOD [facility] CROSSMATCH Compatible [facility] [...] / Volume Laterality Blood 09/30/2021 11:01 PM DONOR RELATIONS OFFICER Josep Peck MD LAB_BLOOD PRODUCTS Performing Organization Address City/State/ZIP Code Phon e Number [facility] [address] [place] [address] XR Femur Lt 2 Views Lower AP/Lat (09/30/2021 7:32 PM DONOR RELATIONS OFFICER) Anatomical Region Laterality Modality Lower Extremity, Leg, Thigh Computed Rad iography Specimen (Source) Anatomical Collection Method Collection Time Re ceived Time Location / / Volume Laterality 09/30/2021 7:32 PM DONOR RELATIONS OFFICER Narrative 09/30/2021 7:41 PM DONOR RELATIONS OFFICER EXAM: XR FEMUR LT 2 VIEWS LOWER [...] Knee Lt 2 Views (09/30/2021 7:32 PM DONOR RELATIONS OFFICER) Anatomical Region Laterality Modality Lower Extremity, Knee Computed Radiograp hy Specimen (Source) Anatomical Collection Method Collection Time Re ceived Time Location / / Volume Laterality 09/30/2021 7:32 PM DONOR RELATIONS OFFICER Narrative 09/30/2021 7:38 PM DONOR RELATIONS OFFICER EXAM: XR KNEE LT 2 VIEWS LOCATION: [...] W AP/Lat Hip Lt (09/30/2021 7:32 PM DONOR RELATIONS OFFICER) Anatomical Region Laterality Modality Pelvis, Hip Computed Radiography Specimen (Source) Anatomical Collection Method Collection Time Re ceived Time Location / / Volume Laterality 09/30/2021 7:32 PM DONOR RELATIONS OFFICER Narrative 09/30/2021 7:41 PM DONOR RELATIONS OFFICER EXAM: XR PELVIS AP W AP/LAT HIP [...] PELVIS AP W AP/LAT HIP LT LOCATION: [facility] DATE/TIME: 09/30/2021 7:32 PM INDICATION: Left [...] RAD GD (ABNORMAL) Ferritin (09/30/2021 7:02 PM DONOR RELATIONS OFFICER) athologist Signature Ferritin 13 (L) 22 - 275 09/30/2021 [facility] ng/mL 10:48 PM [facility] Specimen Anatomical Collection Method / Collection Time Recei shahid Time (Source) Location / Volume Laterality Blood Venipuncture / 09/30/2021 7:02 09/30/2021 7:07 Unknown PM DONOR RELATIONS OFFICER PM DONOR RELATIONS OFFICER Ted Burdick MD LAB_1 Performing Organization Address City/State/ZIP Code Phon e Number [address] [address] (ABNORMAL) Iron Profile (Iron,TIBC,%Sat.(Calc)) (09/30/2021 7:02 PM DONOR RELATIONS OFFICER) [facility] Method Time Signature Iron 14 (L) 65 - 175 09/30/2021 [facility] mcg/dL 10:41 PM HOSPITAL DONOR RELATIONS OFFICER Transferrin 324 174 - 364 09/30/2021 [facility] mg/dL 10:41 PM [facility] DONOR RELATIONS OFFICER TIBC, Calculated 405 240 - 450 09/30/2021 [facility] mcg/dL 10:41 PM HOSPITAL DONOR RELATIONS OFFICER % Saturation, 3 (L) 10 - 50 % 09/30/2021 [facility] Calculated 10:41 PM HOSPITAL DONOR RELATIONS OFFICER TIBC Low iron, 09/30/2021 [facility] Interpretation normal TIBC, 10:41 PM HOSPITAL possible DONOR RELATIONS OFFICER iron deficiency. Specimen Anatomical Collection Method / Collection Time Recei shahid Time (Source) Location / Volume Laterality Blood Venipuncture / 09/30/2021 7:02 09/30/2021 7:07 Unknown PM DONOR RELATIONS OFFICER PM DONOR RELATIONS OFFICER Ted Burdick MD LAB_1 Performing Organization Address [facility] Phon e Number [address] [address] (ABNORMAL) Differential (09/30/2021 7:02 PM DONOR RELATIONS OFFICER) [facility] Method Time Signature Polychromasia Slight (A) None Seen 09/30/2021 [facility] 7:42 PM [facility] RBC Morphology Reviewed 09/30/2021 [facility] 7:42 PM [facility] Platelet Estimate Adequate Adequate 09/30/2021 [facility] 7:42 PM [facility] Neutrophil 7.1 (H) 1.7 - 7.0 09/30/2021 [facility] Absolute 10(9)/L 7:42 PM [facility] Lymphocyte 0.5 (L) 1.0 - 4.8 09/30/2021 [facility] Absolute 10(9)/L 7:42 PM [facility] Monocytes 0.3 0.2 - 0.9 09/30/2021 [facility] Absolute 10(9)/L 7:42 PM [facility] Eosinophil 0.0 0.0 - 0.5 09/30/2021 [facility] Absolute 10(9)/L 7:42 PM [facility] Basophil Absolute 0.1 0.0 - 0.3 09/30/2021 [facility] 10(9)/L 7:42 PM [facility] Specimen Anatomical Collection Method / Collection Time Recei shahid Time (Source) Location / Volume Laterality Blood Venipuncture / 09/30/2021 7:02 09/30/2021 7:07 Unknown PM DONOR RELATIONS OFFICER PM DONOR RELATIONS OFFICER Jonah Nova MD LAB_1 Performing Organization Address [facility] Phon e Number [address] [address] Blood Type second draw (09/30/2021 7:02 PM DONOR RELATIONS OFFICER) P athologist Signature ABO A 09/30/2021 [facility] BLOOD 7:42 PM DONOR RELATIONS OFFICER BANK RH Positive 09/30/2021 [facility] BLOOD 7:42 PM DONOR RELATIONS OFFICER BANK Specimen Anatomical Collection Method / Collection Time Recei shahid Time (Source) Location / Volume Laterality Blood Venipuncture / 09/30/2021 7:02 09/30/2021 7:07 Unknown PM DONOR RELATIONS OFFICER PM DONOR RELATIONS OFFICER Eugenia Gupta MD LAB_1 Performing Organization Address City/State/ZIP Code Phon e Number [facility] [address] [place] [address] (ABNORMAL) Complete Blood Count-W/Diff (09/30/2021 7:02 PM DONOR RELATIONS OFFICER) Analysis Performed At Patho logist Time Signature WBC 8.0 3.5 - 10.5 09/30/2021 [facility] x10(9)/L 7:42 PM [facility] RBC 2.68 (L) 4.32 - 09/30/2021 [facility] 5.72 7:42 PM [facility] x10(12)/L Hemoglobin 6.0 (LL) 13.5 - 09/30/2021 [facility] 17.5 g/dL 7:42 PM [facility] HCT 20.8 (L) 38.8 - 09/30/2021 [facility] 50.0 % 7:42 PM [facility] MCV 77.6 (L) 80.0 - 09/30/2021 [facility] 100.0 fL 7:42 PM [facility] MCH 22.4 (L) 27.6 - 09/30/2021 [facility] 33.3 pg 7:42 PM [facility] MCHC 28.8 (L) 31.5 - 09/30/2021 [facility] 35.2 g/dL 7:42 PM [facility] RDW 17.5 (H) 11.9 - 09/30/2021 [facility] 15.5 % 7:42 PM [facility] Platelets 151 150 - 450 09/30/2021 [facility] x10(9)/L 7:42 PM [facility] Automated NRBC 0 <=0 /100 09/30/2021 [facility] WBC 7:42 PM [facility] Specimen Anatomical Collection Method / Collection Time Recei shahid Time (Source) Location / Volume Laterality Blood Venipuncture / 09/30/2021 7:02 09/30/2021 7:07 Unknown PM DONOR RELATIONS OFFICER PM DONOR RELATIONS OFFICER Jonah Nova MD LAB_1 Performing Organization Address [facility]/ZIP [facility] Phon e Number [address] [address] (ABNORMAL) Basic Metabolic Panel (09/30/2021 7:02 PM DONOR RELATIONS OFFICER) P athologist Signature Sodium 136 136 - 145 09/30/2021 [facility] mmol/L 7:46 PM [facility] Potassium 4.0 3.5 - 5.1 09/30/2021 [facility] mmol/L 7:46 PM [facility] Chloride 104 98 - 109 09/30/2021 [facility] mmol/L 7:46 PM [facility] CO2 24 20 - 29 09/30/2021 [facility] mmol/L 7:46 PM [facility] Anion Gap 8 7 - 16 09/30/2021 [facility] mmol/L 7:46 PM [facility] Calcium 8.4 8.4 - 10.4 09/30/2021 [facility] mg/dL 7:46 PM [facility] BUN 26 7 - 26 09/30/2021 [facility] mg/dL 7:46 PM [facility] Creatinine 0.78 0.73 - 09/30/2021 [facility] 1.18 mg/dL 7:46 PM [facility] GFR, Estimated >60 >60 09/30/2021 [facility] mL/min/1.7 7:46 PM [facility] 3m2 Glucose 152 (H) 70 - 100 09/30/2021 [facility] mg/dL 7:46 PM [facility] Comment: The given reference range is fo r the fasting state. Non-fasting reference range for glucose is 70 - 180 mg/dL. Specimen Anatomical Collection Method / Collection Time Recei shahid Time (Source) Location / Volume Laterality Blood Venipuncture / 09/30/2021 7:02 09/30/2021 7:07 Unknown PM DONOR RELATIONS OFFICER PM DONOR RELATIONS OFFICER Jonah Nova MD LAB_1 Performing Organization Address [facility] Phon e Number [address] [address] Blood Smear Review (Lab Use Only) (09/30/2021 6:27 PM DONOR RELATIONS OFFICER) Patholo gist Method Time Signature Path Review Special heme 10/01/2021 [facility] tech 11:24 AM [facility] performed slide review Path Review Hgb low 10/01/2021 [facility] Reason 11:24 AM [facility] Specimen Anatomical Collection Method / Collection Time Recei shahid Time (Source) Location / Volume Laterality Blood Venipuncture / 09/30/2021 6:27 09/30/2021 6:47 Unknown PM DONOR RELATIONS OFFICER PM DONOR RELATIONS OFFICER Jonah Nova MD LAB_1 Performing Organization Address [facility]/ZIP [facility] Phon e Number [address] [address] (ABNORMAL) Hemoglobin, Blood (09/30/2021 6:27 PM DONOR RELATIONS OFFICER) athologist Signature Hemoglobin 5.8 (LL) 13.5 - 17.5 09/30/2021 [facility] g/dL 7:12 PM [facility] Specimen Anatomical Collection Method / Collection Time Recei shahid Time (Source) Location / Volume Laterality Blood Venipuncture / 09/30/2021 6:27 09/30/2021 6:47 Unknown PM DONOR RELATIONS OFFICER PM DONOR RELATIONS OFFICER Jonah Nova MD LAB_1 Performing Organization Address [facility] Phon e Number [address] [address] INR/Protime (09/30/2021 6:27 PM DONOR RELATIONS OFFICER) athologist Signature Protime 13.6 11.8 - 14.6 09/30/2021 [facility] Seconds 7:03 PM [facility] INR 1.1 0.9 - 1.1 09/30/2021 [facility] 7:03 PM [facility] Specimen Anatomical Collection Method / Collection Time Recei shahid Time (Source) Location / Volume Laterality Blood Venipuncture / 09/30/2021 6:27 09/30/2021 6:47 Unknown PM DONOR RELATIONS OFFICER PM DONOR RELATIONS OFFICER [facility] - 09/30/2021 7:03 PM CS T Therapeutic range determined by protocol established by anticoagulation provider. Jonah Nova MD LAB_1 Performing Organization Address [facility] Phon e Number [address] [address] APTT (Activated Partial Thromboplastin Time) (09/30/2021 6:27 PM DONOR RELATIONS OFFICER) P athologist Signature APTT 31.7 22.5 - 36.5 09/30/2021 [facility] Seconds 7:03 PM DONOR RELATIONS OFFICER [facility]OSPITAL Specimen Anatomical Collection Method / Collection Time Recei shahid Time (Source) Location / Volume Laterality Blood Venipuncture / 09/30/2021 6:27 09/30/2021 6:47 Unknown PM DONOR RELATIONS OFFICER PM DONOR RELATIONS OFFICER Jonah Nova MD LAB_1 Performing Organization Address [facility] Phon e Number [address] [address] Antibody Screen (09/30/2021 6:27 PM DONOR RELATIONS OFFICER) [facility] gist Method Time Signature Antibody Screen Negative 09/30/2021 [facility] BLOOD Interpretation 7:35 PM DONOR RELATIONS OFFICER BANK Specimen Anatomical Collection Method / Collection Time Recei shahid Time (Source) Location / Volume Laterality Blood Venipuncture / 09/30/2021 6:27 09/30/2021 6:46 Unknown PM DONOR RELATIONS OFFICER PM DONOR RELATIONS OFFICER Jonah Noav MD LAB_1 Performing Organization Address [facility] Phon e Number [facility] BLOOD [facility] [address] [place] [address] Blood Type (09/30/2021 6:27 PM DONOR RELATIONS OFFICER) P athologist Signature ABO A 09/30/2021 [facility] BLOOD 7:23 PM DONOR RELATIONS OFFICER BANK RH Positive 09/30/2021 [facility] BLOOD 7:23 PM DONOR RELATIONS OFFICER BANK Specimen Anatomical Collection Method / Collection Time Recei shahid Time (Source) Location / Volume Laterality Blood Venipuncture / 09/30/2021 6:27 09/30/2021 6:46 Unknown PM DONOR RELATIONS OFFICER PM DONOR RELATIONS OFFICER Jonah Nova MD LAB_1 Performing Organization Address [facility] Phon e Number [facility] [address] [place] [address] documented in this encounter Visit Diagnoses Diagnosis [...] not set up. Will try again later R RELATIONS OFFICER Plan of Care - Brenda Bar RN - 10/03/2021 3:24 PM CST [facility] Discharge Note - Nursing Admission Date/Time: 09/30/2021 5:33 PM Attending MD: Martha Gottlieb MD Patient discharged: to Home. Discharge Date: 10/03/2021 Discharge Time: 3:24 PM Patient accompanied by: self and transportation manager (TSI). Transported by: Wheelchair Valuables were taken [...] stored: Yes --- End of Report --- R RELATIONS OFFICER Plan of Care - Afshan Guajardo RN - 10/03/2021 3:09 PM CST I completed a full assessment and assessments as ordered and per policy on this patient during my work shift. Reassessments completed during my work shift are unchanged unless documented. R RELATIONS OFFICER Plan of Care - Dilcia Barr RN - 10/03/2021 2:02 PM CST [facility] Care Management Discharge Note Discharge Information: Expected [...] to shower in basement) Contacts: Emergency Contacts Staple Processing Machine Operator (Rel.) Home Phone Work Phone Mobile Phone Magali Luna (Spouse) [phone] -- -- Decline,Pt 03/23/2018 -- -- -- [...] Additional Comments: Case discussed in care rounds. Chief Crew Scheduler was notified that patient needing assistance with transportation home. I met with patient, he is needing a wheelchair ride home today. His will be home when he arrives but she is unable to drive. He has a ramp to enter the home and has [employer] PMAP. Ride re quested and obtained for [id number]. PT recommending outpatient PT, pt prefers to go to [facility] for outpatient PT. Paged ortho international affairs vice president and obtained order which I printed and gave to the patient and instructed him to call [facility] and they will want him to bring printed order to appt. Dilcia Barr RN R RELATIONS OFFICER Plan of Care - Linda Longo RN - 10/03/2021 7:28 AM CST I completed a full assessment and assessments as ordered and per policy on this patient during my work shift. Reassessments completed during my work shift are unchanged unless documented. R RELATIONS OFFICER Plan of Care - Brenda Bar RN [...] my work shift are unchanged unless documented. R RELATIONS OFFICER Plan of Care - Kera Reeder RN - 10/02/2021 2:58 PM CST I completed a full assessment and assessments as ordered on this patient during my work shift. Reassessments completed during my work shift are unchanged unless documented. R RELATIONS OFFICER Plan of Care - Sommer Lowery RN - 10/02/2021 1:16 AM CST [facility] Plan of Care Note Assessment: Plan of [...] unless documented. --- End of Report --- R RELATIONS OFFICER Plan of Care - Brenda Bar RN [...] willing to answer and let RN do. R RELATIONS OFFICER Plan of Care - Josep Cervantes MD [...] to the [facility] and [facility] Josep Cervantes MD Orthopaedic Surgery, PGY-2 Pager: [phone] R RELATIONS OFFICER Plan of Care - Brenda Bar RN - 10/01/2021 5:06 PM CST [facility]. Practitioner Notified Note Name of Practitioner notified: Ortho consult Time of Practitioner notification: 5:08 PM Reason: E. Hol., 9633, Pt stating he will leave hospital without coming to floor. Not situationcan, security aware. Response: Ortho team coming up to talk to pt with security at bedside. Will notify pt at that time that is unable to come to floor. R RELATIONS OFFICER Plan of Care - Estephania Mejia RN - 10/01/2021 2:19 PM CST [facility] Plan of Care Note Assessment: aggression, safety, [...] unless documented. --- End of Report --- R RELATIONS OFFICER Plan of Care - Ladan Najera RN - 10/01/2021 10:08 AM CST [facility]. Practitioner Notified Note Name of Practitioner notified: Dr Gottlieb Time of Practitioner notification: 10:08 AM Reason: Luna, Ed: Can you come back to patient in [facility] 2? Patient refusing blood products and needs to sign on consent. Thanks. Response: Will come see patient R RELATIONS OFFICER Plan of Care - Estephania Mejia RN - 10/01/2021 9:04 AM CST [facility] Nursing Pre-Op Note Admission Date/Time: 09/30/2021 5:33 PM Time of transport to the Operating Room: 903 Transported by: Litter/cart Pre-Op checklist complete?: yes R RELATIONS OFFICER Plan of Care - Diana Early RN - 10/01/2021 3:56 AM CST [facility] Plan of Care Note Assessment: Plan of [...] two providers. Concerned about heather communicable diseases. Fabric Sourcer stated this may delay his surgery. Patient states that he was being forced to get blood. Fabric Sourcer explained the safety concerns of low hemoglobin and surgery. Patient stated he did not want to talk about it anymore. Aboutan hour later patient stated that he would take the blood under protest. Fabric Sourcer clarified that this meant he was consenting. Patient confirmed. Started transfusion of 2 units. I completed a full assessment and assessments as ordered and per policy on this patient during my work shift. Reassessments completed during my work shift are unchanged unless documented. --- End of Report --- R RELATIONS OFFICER Plan of Care - Josep Cervantes MD [...] and that this country is ???going to [facility]?? . I recognized that thepatient has reservations [...] health. He suggested that this felt like [facility]. He repeatedly statedthat the only circumstances under which he would be willing to receive blood is if I personally drafted a statement or letter that would allow him to yudi me personally, his nurse, and [facility] if he received any sort of blood borne illness from a transfusion. I explained that [facility] does not have such statements. Ultimately, I [...] Josep Cervantes MD Orthopaedic Surgery, PGY-2 Pager: [phone] R RELATIONS OFFICER Triage Assessment Note - Yari Adams RN - 09/30/2021 5:35 PM DONOR RELATIONS OFFICER [facility] with chief complaint: Femur fracture Symptoms/background (EMS narrative): Pt. Was at home and slipped on the ice and fell on the left knee. CMS intact. Leg was splinted at [facility]. Has been given dilaudid for pain. Interventions/abnormal vitals: VSS. 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 R RELATIONS OFFICER documented in this encounter Admitting Diagnoses Diagnosis [...] chewable tablet Given 10/03/2021 9:32 A M DONOR RELATIONS OFFICER 1,000 mg 500-1,000 mg 500-1,000 mg, Oral, QID PRN, Heartburn, Dyspepsia, Starting on Thu09/30/21 at 2142, Until Ruth 10/03/21 at 1754, Each tablet provides 200 mg elemental calcium Given 10/02/2021 7:13 PM DONOR RELATIONS OFFICER 1,000 mg Given 10/02/2021 2:30 PM DONOR RELATIONS OFFICER 1,000 mg dextrose (D50) injection 25 g [...] injection 25-50 mcg Given 10/01/2021 3:35 PM DONOR RELATIONS OFFICER 25 mcg 25-50 mcg, Intravenous, [id number], Pain, Starting on Thu10/01/21 at 1412, Until [...] medications., PACU (only) Given 10/01/2021 3:20 PM DONOR RELATIONS OFFICER 50 mcg Given 10/01/2021 3:12 PM DONOR RELATIONS OFFICER 25 mcg fentaNYL (SUBLIMAZE) injection 50 mcg Given 09/30/2021 6:19 PM DONOR RELATIONS OFFICER 50 mcg 50 mcg, Intravenous, ONCE, On [...] injection 15 mg Given 09/30/2021 10:34 PM DONOR RELATIONS OFFICER 15 mg 15 mg, Intravenous, Q6H PRN, Pain, Starting on Thu09/30/21 at 2142, Until Ruth 10/03/21 at 1508, For 8 doses, Hold all NSAIDS if SBP less than 100 mmHg. lactated ringers infusion Started 10/01/2021 1:51 PM DONOR RELATIONS OFFICER Intravenous, at 30 mL/hr, CONTINUOUS, Starting on Thu10/01/21 at 0845, If IV started. Continuous., Pre-op Restarted 10/01/2021 1:03 PM DONOR RELATIONS OFFICER Restarted 10/01/2021 10:17 AM DONOR RELATIONS OFFICER methocarbamol (ROBAXIN) tablet 500 mg Given 09/30/2021 10:35 PM DONOR RELATIONS OFFICER 500 mg 500 mg, Oral, Q6H PRN, [...] immediate release tablet Given 10/03/2021 2:44 PM DONOR RELATIONS OFFICER 5 mg 5-10 mg 5-10 mg, Oral, Q4H PRN, Pain, Starting on Thu09/30/21 at 2142, Until Ruth 10/03/21 at 1754, Give PO opioid if able to take PO and pain not well controlled with other medications or interventions. Given 10/03/2021 9:32 AM DONOR RELATIONS OFFICER 10 mg Given 10/02/2021 11:09 AM DONOR RELATIONS OFFICER 5 mg polyethylene glycol (MIRALAX) oral powde [...] chloride 0.9% infusion Started 09/30/2021 11:31 PM DONOR RELATIONS OFFICER 125 mL/hr Intravenous, at 125 mL/hr, CONTINUOUS, Starting on Thu09/30/21 at 2200 documented in this encounter Active and Recently Administered Medications Times are shown in DONOR RELATIONS OFFICER. Scheduled Medication Order 10/01/2021 10/02/2021 10/03/2021 acetaminophen [...] 1036 (Given - Provider: Pooja Simmons APRN, MINE LABORER) 1,000 mg, Intravenous, ONCE, On 10/01 at [...] Provider: Anika Lazo RN) 25-50 mcg, Intravenous, [id number], Pain, Starting on Thu10/01/21 at 1412, Until [...] Kera Reeder, SIMEON) 0932 (Given - Provider: Afshna cabrera RN)1444 (Given - Provider: Afshan Guajardo [...] Nausea/Vomiting. documented in this encounter Care Teams Waste Chopper Relationship Specialty Start Date End Date Kevin Bullock MD PCP - General Family Practice 09/30/21 documented as of this encounter
--- OUTSIDE RECORDS SUMMARY | 2022-08-12 09:41 | XMS_ITS | Encounter Summary ---
:1960 Author [facility] Address [address] [place] [address] Care Team Providers Name Role Phone Cintia Cobb MD Primary Care Provider [phone] Encounter Details Date Type Department Care Team Description 09/30/2021 Partner ED HIM DEPARTMENT Provider, Aguilar hernandez MD [facility] 09/30/2021 [place] [address] Social History Tobacco Use Types Packs/Day Years [...] [address] [place], [place] [address] (Gavi presley) 10/08/2022 Appointment Orthopedics Delgado Gottlieb MD [address] [place], [place] [address] (Gavi presley) 05/27/2023 Appointment Chemo Therapy/Infusion Services documented as of this encounter Visit Diagnoses Not on filedocumented in this encounter Care Teams Engineering Specialist Technician Relationship Specialty Start Date End Date Cintia Cobb MD PCP - General Family Practice 09/30/21 documented as of this encounter
--- OUTSIDE RECORDS SUMMARY | 2022-08-12 09:42 | XMS_ITS | Encounter Summary ---
:1960 Author Organization [facility] Address [address], [place] [address] Care Team Providers Name Role Phone Ladan Song MD Primary Care Provider Unavailable Reason for Visit Procedure/Equipment (Routine) - Incomplete Specialty Diagnoses / Procedures Referred By Contact Refer red To Contact Procedures Cesar Scherer MD Foreign Image(S) CT Hip Lt [address] [facility] [address] [place], [place] [phone] Referral ID Status Reason Start Date Expiration Date Visits V isits Requested Authorized [id number] Incomplete 12/07/2020 03/08/2022 1 1 Encounter Details Date Type Department Care Team Description 08/30/2020 Ancillary Procedure RC Radiology PACS [place] [address] [address] [facility] [address] [place] [address] Social History Tobacco Use Types [...] 09/15/2022 Appointment Orthopedics Delgado Gottlieb MD [address] [place], [place] [phone] (Wo rk) 10/08/2022 Appointment Orthopedics Delgado Gottlieb MD [address] [place], [place] [address] (Wo rk) 05/27/2023 Appointment Chemo Therapy/Infusion Services documented as of this encounter Procedures Procedure Name Priority Date/Time Associated Diagnosis Comme nts FOREIGN IMAGE(S) CT Routine 08/30/2020 12:05 AM R esults for this HIP LT DIRECTOR OF MARKETING [employer] PERFORMANCE ADS procedure are i n the results section. documented in this encounter Results Foreign Image(S) CT Hip Lt (08/30/2020 12:05 AM DIRECTOR OF MARKETING [employer] PERFORMANCE ADS) Specimen (Source) Anatomical Location Collection Method / [...] on filedocumented in this encounter Care Teams Freight Brakeman Relationship Specialty Start Date End Date Ladan Song MD PCP - General Internal Medicine 08/18/17 09/29/21 documented as of this encounter
--- OUTSIDE RECORDS SUMMARY | 2022-08-12 09:42 | XMS_ITS | Encounter Summary ---
:1960 Author Organization [employer] Address [address] [place] [address] Care Team Providers Name Role Phone Ladan Song MD Primary Care Provider Unavailable Reason for Visit Reason Comments Symptoms Encounter Details Date Type Department Care Team Description 09/09/2021 Telephone [facility] Cesar Champagne MD Symptoms [address] [facility] [address] [place], [place] [address] [place], [place] [phone] (Wo rk) Social History Tobacco Use [...] to also reach out to Jackie at [facility] as well. Symptoms were also discussed. ORATOR Mehreen Bolton, RN - 09/09/2021 11:26 AM CST Called pt to review symptoms. No answer. LVM to call back to [facility] for any questions related to symptoms or repeat injection. If wanted to schedule surgery call Spine - see number listed below. ORATOR Lesli Motley - 09/09/2021 9:10 AM CST Yarelis at [facility] asked for a nurse to call this patient regarding his symptoms. Symptoms are getting worse, he is falling and legs are buckling. [facility] does have insurance approval to book surgery and if he is ready to book he can call Jackie at [phone]. ORATOR documented in this encounter Plan of Treatment Upcoming Encounters Date Type Specialty Care Team Description 09/15/2022 Appointment Orthopedics Delgado Gottlieb MD [address] [place], [place] [address] (Gavi presley) 10/08/2022 Appointment Orthopedics Delgado Gottlieb MD [address] [place], [place] [address] (Gavi presley) 05/27/2023 Appointment Chemo Therapy/Infusion Services documented as of this encounter Visit Diagnoses Not on filedocumented in this encounter Care Teams Spool Carrier Relationship Specialty Start Date End Date Ladan Song MD PCP - General Internal Medicine 08/18/17 09/29/21 documented as of this encounter
--- OUTSIDE RECORDS SUMMARY | 2022-08-12 09:42 | XMS_ITS | Encounter Summary ---
:1960 Author Organization [facility] Address [address] [place] [address] Care Team Providers Name Role Phone Ladan Song MD Primary Care Provider Unavailable Reason for Visit Reason Comments CANCEL APPOINTMENT 04/19 due to provider emergen cy Encounter Details Date Type Department Care Team Description 04/19/2021 Telephone [facility] Freddy Delgado, [facility] (04/19 due to provider [address] [facility] emergency) [place], [place] [address] [place], [place] [phone] (Wo rk) Social History Tobacco Use Types [...] and trouble getting in contact with this financial writer after missed calls from [facility]. Spoke [...] next day Dr. Scherer is back at [facility]. Lesli Motley - 04/19/2021 1:49 PM [...] for a 7 0 am.Please call at [phone] Future Appointments Date Time Provider Department Center 05/17/2021 3:00 PM Freddy Delgado PA-C [facility] Lesli Motley - 04/19/2021 11:17 AM CDT Received an urgent message from Didier Delgado PA-C that he has to leave [facility] as he has a family emergency. [...] 09/15/2022 Appointment Orthopedics Delgado Gottlieb MD [address] [place] [phone] (Gavi presley) 10/08/2022 Appointment Orthopedics Delgado Gottlieb MD [address] [place] [phone] (Gavi presley) 05/27/2023 Appointment Chemo Therapy/Infusion Services documented as of this encounter Visit Diagnoses Not on filedocumented in this encounter Care Teams Crop Farm Helper Relationship Specialty Start Date End Date Ladan Song MD PCP - General Internal Medicine 08/18/17 09/29/21 documented as of this encounter
--- OUTSIDE RECORDS SUMMARY | 2022-08-12 09:42 | XMS_ITS | Encounter Summary ---
:1960 Author Organization [facility] Address [address] [place] [address] Care Team Providers Name Role Phone Ladan Song MD Primary Care Provider Unavailable Reason for Visit Reason Comments NURSE PREP FOR PROCEDURE Encounter Details Date Type Department Care Team Description 03/25/2021 Telephone [facility] MRI Crystal Olsen, NURSE PREP FOR PROCEDURE [address] RN [place], [place] [phone] Social History Tobacco Use Types Packs/Day Years [...] called with instructions for Myelogram scheduled 03/27/2021 *Engineering Instructor can park in the [place] and bring in parking ticket OR electric truck driver can drop pt off at [...] at home *Need to have an Adult electric truck driver (No public transportation unless accompanied by responsible adult) *Need an adult at home with you for 12 hours after procedure (only if cervical). *Call [phone] if have questions documented in this encounter Plan of Treatment Upcoming Encounters Date Type Specialty Care Team Description 09/15/2022 Appointment Orthopedics Delgado Gottlieb MD [address] [place], [place] [address] (Gavi presley) 10/08/2022 Appointment Orthopedics Delgado Gottlieb MD [address] [place], [place] [address] (Gavi presley) 05/27/2023 Appointment Chemo Therapy/Infusion Services documented as of this encounter Visit Diagnoses Not on filedocumented in this encounter Care Teams Relay Tester Relationship Specialty Start Date End Date Ladan Song MD PCP - General Internal Medicine 08/18/17 09/29/21 documented as of this encounter
--- OUTSIDE RECORDS SUMMARY | 2022-08-12 09:42 | XMS_ITS | Encounter Summary ---
:1960 Author Organization [facility] Address [address] [place] [address] Care Team Providers Name Role Phone Ladan Song MD Primary Care Provider Unavailable Reason for Visit Reason Comments Other Scheduled ILESI Encounter Details Date Type Department Care Team Description 06/06/2021 Telephone [facility] Juan Miguel Buckley MD Other (Scheduled ILESI [address] [facility] ) [place], [place] [address] [place], [place] [phone] (Wo rk) Social History Tobacco Use Types [...] scheduled 06-26-21, reiterated our policy regardingrequirement for city route driver home after injection and NPO two [...] instructions for our visits. Ed says his [facility] does not require this nor did his myelogram so why should he for this. Ed also says he will not need a city route driver for his ILESI on 06/26/21 and [...] 09/15/2022 Appointment Orthopedics Delgado Gottlieb MD [address] [place], [place] [address] (Gavi presley) 10/08/2022 Appointment Orthopedics Delgado Gottlieb MD [address] [place], [place] [address] (Gavi presley) 05/27/2023 Appointment Chemo Therapy/Infusion Services documented as of this encounter Visit Diagnoses Not on filedocumented in this encounter Care Teams Hoeing Row Boss Relationship Specialty Start Date End Date Ladan Song MD PCP - General Internal Medicine 08/18/17 09/29/21 documented as of this encounter
--- OUTSIDE RECORDS SUMMARY | 2022-08-12 09:42 | XMS_ITS | Encounter Summary ---
:1960 [facility] Address [address], [place] [address] Care Team Providers Name Role Phone Ladan Song MD Primary Care Provider Unavailable Reason for Visit Reason Comments Pre-procedure Call Encounter Details Date Type Department Care Team Description 06/20/2021 Telephone [facility] Rebecca Leiva RN Pre-procedure Call [address] [place], [place] [address] Social History Tobacco Use Types [...] 09/15/2022 Appointment Orthopedics Delgado Gottlieb MD [address] [place], [place] [address] (Gavi presley) 10/08/2022 Appointment Orthopedics Delgado Gottlieb MD [address] [place] [phone] (Gavi presley) 05/27/2023 Appointment Chemo Therapy/Infusion Services documented as of this encounter Visit Diagnoses Not on filedocumented in this encounter Care Teams Spice Room Worker Relationship Specialty Start Date End Date Ladan Song MD PCP - General Internal Medicine 08/18/17 09/29/21 documented as of this encounter
--- OUTSIDE RECORDS SUMMARY | 2022-08-12 09:42 | XMS_ITS | Encounter Summary ---
:1960 Author Organization [facility] [employer] Address [address] [place] [address] Care Team Providers Name Role Phone Ladan Song MD Primary Care Provider Unavailable Reason for Visit Reason Comments Surgery Questions Schedule Surgery Encounter Details Date Type Department Care Team Description 07/24/2021 Telephone [facility] Cesar Champagne Surgery Questions [address] [facility] MD Terri (Schedule Surgery) [place], [place] [address] [address] [phone] [place] [phone] Social History Tobacco Use Types Packs/Day [...] order and spine information sent to the [facility] for insurance approval and surgery scheduling. Once [facility] obtains approval from insurance they will contact the patient directly to schedule surgery. Internet Developer[facility] Internet Developer ([facility]): Jackie [phone] Prior Authorization: [facility] Prior Auth Dept: Yarelis [phone] Please note some authorizations can take up to 1-3 weeks depending on your insurance and the surgical procedure that was ordered. LIANCE ATTORNEY Lesli Motley - 07/24/2021 10:52 AM CST Will need to obtain surgical surgery order/request and then submit for insurance approval before surgery can be booked. Didier, since Dr. Scherer is not in until 08/13 to complete, is this something youcan complete at your next clinic you are here at [facility]? LIANCE ATTORNEY Davin Diggs - 07/24/2021 10:40 AM CST Has the patient recently had surgery or an injury? No How may we help you today? Pt would like a call back from AA Describe your symptoms/concerns: Pt is wanting to schedule his surgery. Please call to advise, When did the issue start: NA Have you been seen for this recently?: NA [Neon Pumper/Appt Center: If yes, please include date and provider.] Is it okay to leave detailed message on your voicemail? No, he don't have VM, so keep trying till you get him. [Neon Pumper/Appt Center: If this call is after 3 p.m., communicate to patient: If we are not able to get back to you by the end of the day and your symptoms worsen please contact the Careline] LIANCE ATTORNEY documented in this encounter Plan of Treatment Upcoming Encounters Date Type Specialty Care Team Description 09/15/2022 Appointment Orthopedics Delgado Gottlieb MD [address] [place] [address] (Wo rk) 10/08/2022 Appointment Orthopedics Delgado Gottlieb MD [address] [place] [address] (Wo rk) 05/27/2023 Appointment Chemo Therapy/Infusion Services documented as of this encounter Visit Diagnoses Not on filedocumented in this encounter Care Teams Knit Goods Washer Relationship Specialty Start Date End Date Ladan Song MD PCP - General Internal Medicine 08/18/17 09/29/21 documented as of this encounter
--- OUTSIDE RECORDS SUMMARY | 2022-08-12 09:42 | XMS_ITS | Encounter Summary ---
:1960 Author Organization [facility] Address [address] [place] [address] Care Team Providers Name Role Phone Ladan Song MD Primary Care Provider Unavailable Reason for Visit Reason Comments QUESTIONS, GENERAL Encounter Details Date Type Department Care Team Description 03/27/2021 Telephone [facility] Cesar Champagne, QUESTIONS, GENERAL [address] [facility] [place], [place] [address] [address] [phone] [place] [phone] (Wo rk) Social History Tobacco Use [...] stated he had a CT myelogram at [facility] yesterday. Patient scheduled for follow-up Future Appointments Provider Department Center 04/19/2021 3:00 PM Freddy Delgado PA-C [facility] Patient continues to have low [...] you been seen for this recently?: N/A [Sales Promotion Director/Appt Center: If yes, please include date and provider.] Is it okay to leave detailed message on your voicemail? No Pt. doesn't have voicemail. Try calling him back if he didn't answer. [Sales Promotion Director/Appt Center: If this call is after 3 p.m., communicate to patient: If we are not able to get back to you by the end of the day and your symptoms worsen please contact the Careline] documented in this encounter Plan of Treatment Upcoming Encounters Date Type Specialty Care Team Description 09/15/2022 Appointment Orthopedics Delgado Gottlieb MD [address] [place] [phone] (Gavi presley) 10/08/2022 Appointment Orthopedics Delgado Gottlieb MD [address] [place], [place] [address] (Gavi presley) 05/27/2023 Appointment Chemo Therapy/Infusion Services documented as of this encounter Visit Diagnoses Not on filedocumented in this encounter Care Teams Acetylene Torch Solderer Relationship Specialty Start Date End Date Ladan Song MD PCP - General Internal Medicine 08/18/17 09/29/21 documented as of this encounter
--- OUTSIDE RECORDS SUMMARY | 2022-08-12 09:42 | XMS_ITS | Encounter Summary ---
:1960 Author Organization [facility] Address [address] [place] [address] Care Team Providers Name Role Phone Ladan Song MD Primary Care Provider Unavailable Reason for Visit Reason Comments Post Visit Follow Up Phone Call Encounter Details Date Type Department Care Team Description 07/08/2018 Telephone [facility] Garth White RN Post Visit Follow Up [address] Phone Call [place], [place] [address] [place], [place] [phone] (Gavi presley) Social History Tobacco Use Types [...] 09/15/2022 Appointment Orthopedics Delgado Gottlieb MD [address] [place], [place] [address] (Gavi rk) 10/08/2022 Appointment Orthopedics Delgado Gottlieb MD [address] [place], [place] [address] (Gavi rk) 05/27/2023 Appointment Chemo Therapy/Infusion Services documented as of this encounter Visit Diagnoses Not on filedocumented in this encounter Care Teams Computator Relationship Specialty Start Date End Date Ladan Song MD PCP - General Internal Medicine 08/18/17 09/29/21 documented as of this encounter
--- OUTSIDE RECORDS SUMMARY | 2022-08-12 09:42 | XMS_ITS | Encounter Summary ---
:1960 [facility] Address [address], [place] [address] Care Team Providers Name Role Phone Ladan Song MD Primary Care Provider Unavailable Reason for Referral Procedure/Equipment (Routine) - Closed Specialty Diagnoses / Procedures Referred By Contact Refer red To Contact Diagnoses Spinal stenosis of lumbar region with neurogenic claudication Cesar Scherer MD Procedures CT Lumbar Spine Post Myelogram [address] [facility] [address] [place] [address] Referral ID Status Reason Start Date Expiration Date Visits Requ ested Visits Authorized [id number] Closed 03/12/2021 06/11/2022 1 1 Procedure/Equipment (Routine) - Incomplete Specialty Diagnoses / Procedures Referred By Contact Refer red To Contact Diagnoses Spinal stenosis of lumbar region with neurogenic claudication Cesar Scherer MD Procedures [place] Myelogram Lumbar Spine [address] [facility] [address] [place] [address] Referral ID Status Reason Start Date Expiration Date Visits V isits Requested Authorized [id number] Incomplete 03/12/2021 06/11/2022 1 1 Encounter Details Date Type Department Care Team Description 03/27/2021 Hospital Encounter [place] [address] [place] [address] Spinal stenosis of Center Procedural Edward Ardon MD [address] [place] [address] lumbar region with Area neurogenic [address] [place], [place] [id number] Social History Tobacco Use Types Packs/Day Years [...] in 24 hours cyanocobalamin 3 10/28/2016 06/26/2021 ([id number]) 1000 MCG/ML injection DULoxetine (CYMBALTA) Take 20 [...] 09/15/2022 Appointment Orthopedics Delgado Gottlieb MD [address] [place] [phone] (Gavi presley) 10/08/2022 Appointment Orthopedics Delgado Gottlieb MD [address] [place] [phone] (Gavi presley) 05/27/2023 Appointment Chemo [...] (Given - Provider: Edna Vizcaino - Comment: [facility] [id number]) 10 mL, Intrathecal, ONCE, On Thu03/27/21 at 0945, For 1 dose, Ra diology documented in this encounter Care Teams Porcelain Enamel Sprayer Relationship Specialty Start Date End Date Ladan Song MD PCP - General Internal Medicine 08/18/17 09/29/21 documented as of this encounter
--- OUTSIDE RECORDS SUMMARY | 2022-08-12 09:42 | XMS_ITS | Encounter Summary ---
:1960 [facility] Address [address] [place] [address] Care Team Providers Name Role Phone Ladan Song MD Primary Care Provider Unavailable Reason for Visit Reason Comments Pre-procedure Call Encounter Details Date Type Department Care Team Description 01/09/2021 Telephone [facility] Luz Wei, Pre-procedure Call [address] [place], [place] [address] Social History Tobacco Use Types [...] 09/15/2022 Appointment Orthopedics Delgado Gottlieb MD [address] [place] [phone] (Gavi presley) 10/08/2022 Appointment Orthopedics Delgado Gottlieb MD [address] [place] [phone] (Gavi presley) 05/27/2023 Appointment Chemo Therapy/Infusion Services documented as of this encounter Visit Diagnoses Not on filedocumented in this encounter Care Teams Gas Regulator Repairer Relationship Specialty Start Date End Date Ladan Song MD PCP - General Internal Medicine 08/18/17 09/29/21 documented as of this encounter
--- OUTSIDE RECORDS SUMMARY | 2022-08-12 09:42 | XMS_ITS | Encounter Summary ---
:1960 [facility] Address [address] [place] [address] Care Team Providers Name Role Phone Ladan Song MD Primary Care Provider Unavailable Reason for Visit Reason Comments Post Visit Follow Up Phone Call Encounter Details Date Type Department Care Team Description 06/27/2021 Telephone [facility] Lizeth Valentino Post Visit Follow Up 8100 [facility] Yeni Dooley, SIMEON Phone Call [place], [place] [address] Social History Tobacco Use Types [...] 09/15/2022 Appointment Orthopedics Delgado Gottlieb MD [address] [place], [place] [address] (Gavi presley) 10/08/2022 Appointment Orthopedics Delgado Gottlieb MD [address] [place], [place] [address] (Gavi presley) 05/27/2023 Appointment Chemo Therapy/Infusion Services documented as of this encounter Visit Diagnoses Not on filedocumented in this encounter Care Teams Prosthetic Makeup Designer Relationship Specialty Start Date End Date Ladan Song MD PCP - General Internal Medicine 08/18/17 09/29/21 documented as of this encounter
--- OUTSIDE RECORDS SUMMARY | 2022-08-12 09:42 | XMS_ITS | Encounter Summary ---
:1960 Author Organization [facility] Address [address] [place] [address] Care Team Providers Name Role Phone Cintia Cobb MD Primary Care Provider [phone] Encounter Details Date Type Department Care Team Description 09/18/2021 Notes/Orders [facility] Cesar Champagne, [address] [place], [place] [address] [address] [address] [place] [address] (Gavi rk) Social History Tobacco [...] 09/15/2022 Appointment Orthopedics Delgado Gottlieb MD [address] [place] [phone] (Gavi rk) 10/08/2022 Appointment Orthopedics Delgado Gottlieb MD [address] [place] [phone] (Wo rk) 05/27/2023 Appointment Chemo Therapy/Infusion Services documented as of this encounter Visit Diagnoses Not on filedocumented in this encounter Care Teams Veteran Appeals Reviewer Relationship Specialty Start Date End Date Cintia Cobb MD PCP - General Family Practice 09/30/21 documented as of this encounter
--- OUTSIDE RECORDS SUMMARY | 2022-08-12 09:42 | XMS_ITS | Encounter Summary ---
:1960 Author Organization [facility] Address [address] [place] [address] Care Team Providers Name Role Phone Ladan Song MD Primary Care Provider Unavailable Reason for Referral Procedure/Equipment (Routine) - Closed Specialty Diagnoses / Referred By Contact Referred To Contact Procedures Interventional Pain Mgmt Diagnoses Osteoarthritis of spine with radiculopathy, lumbar region (HRC) Everardo Scherer [facility] Procedures FL C Arm 20 Pain Management MD [address] [facility] [address] [facility] 600 [address] [place], [place] Phone: [phone] Referral ID Status Reason Start Date Expiration Date Visits Requ ested Visits Authorized [id number] Closed 05/14/2021 08/13/2022 1 1 Reason for Visit Reason Comments Follow Up Ct Results lumbar Encounter Details Date Type Department Care Team Description 05/14/2021 Office Visit YOU Scherer Osteoarthri tis of spine CENTER Everardo Murray MD with radiculopathy, [address] [facility] [address] lumbar region (Primary [place], [place] [address] [address] Dx) [phone] [place] [address] Social History Tobacco Use Types [...] 12:00 AM CDT NAME: LAZ LUNA CSN: [id number] CLINIC NOTE DATE OF SERVICE: 05/14/2021 : [...] questions or concerns. EVERARDO SCHERER MD JDS/AQS /[id number] documented in this encounter Plan of Treatment Upcoming Encounters Date Type Specialty Care Team Description 09/15/2022 Appointment Orthopedics Delgado Gottlieb MD [address] [place] [phone] (Wo rk) 10/08/2022 Appointment Orthopedics Delgado Gottlieb MD [address] [place], [place] [address] (Wo rk) 05/27/2023 Appointment [...] (HRC) documented in this encounter Care Teams Diamond Die Driller Relationship Specialty Start Date End Date Ladan Song MD PCP - General Internal Medicine 08/18/17 09/29/21 documented as of this encounter
--- OUTSIDE RECORDS SUMMARY | 2022-08-12 09:42 | XMS_ITS | Encounter Summary ---
:1960 Author Organization [facility] Address [address] [place] [address] Care Team Providers Name Role Phone Ladan Song MD Primary Care Provider Unavailable Reason for Referral Procedure/Equipment (Routine) - Incomplete Specialty Diagnoses / Procedures Referred By Contact Refer red To Contact Diagnoses Spinal stenosis of lumbar region with neurogenic claudication Cesar Scherer MD Procedures [place] C Arm 20 Pain Management [address] [address] Referral ID Status Reason Start Date Expiration Date Visits V isits Requested Authorized [id number] Incomplete 12/25/2020 03/26/2022 1 1 Reason for Visit Reason Comments Back Problem Low back Left leg pain Consult/Transfer Care (Routine) - Closed Specialty Diagnoses / Procedures Referred By Contact Refer red To Contact Orthopedics Diagnoses Low back pain (HRC) Spondylosis without myelopathy or radiculopathy, lumbar region (HRC) Radiculopathy, lumbar region Christian Gonzalez II [facility] [address] [place] [phone] Referral ID Status Reason Start Date Expiration Date Visits Requ ested Visits Authorized [id number] Closed 12/05/2020 03/06/2022 1 1 Encounter Details Date Type Department Care Team Description 12/25/2020 Office Visit Cesar Reynolds Spinal stenosis of TAYLOR MD Terir lumbar region with [address] [facility] [address] neurogenic claudication [place], [place] [address] [address] (Primary Dx) [phone] [place] [address] Social History Tobacco Use Types [...] 12/25/2020 12:00 AM CDT CARLYLELAZ J CSN: [id number] CLINIC NOTE DATE OF SERVICE: 12/25/2020 : [...] SOCIAL HISTORY: 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 He has worked for [employer] since 1952. Lives at home with his [...] Luna's lumbar spine is available for review. [facility] PACS system does reveal significant spinal stenosis [...] FREDDY GAO PA-C Staff: MD ENRIQUE BROWN/JOSEPH /[id number] documented in this encounter Plan of Treatment Upcoming Encounters Date Type Specialty Care Team Description 09/15/2022 Appointment Orthopedics Delgado Gottlieb MD [address] [place], [place] [address] (Wo rk) 10/08/2022 Appointment Orthopedics Delgado Gottlieb MD [address] [place], [place] [address] (Gavi rk) 05/27/2023 Appointment [...] claudication documented in this encounter Care Teams Retail Supervisor Relationship Specialty Start Date End Date Ladan Song MD PCP - General Internal Medicine 08/18/17 09/29/21 documented as of this encounter
--- OUTSIDE RECORDS SUMMARY | 2022-08-12 09:42 | XMS_ITS | Encounter Summary ---
:1960 Author Organization [facility] Address [address], [place] [address] Care Team Providers Name Role Phone Ladan Song MD Primary Care Provider Unavailable Reason for Referral (Routine) - New Request Specialty Diagnoses / Procedures Referred By Contact Refer red To Contact Diagnoses Lumbar radiculitis Juan Miguel Buckley MD Procedures [facility] [address] [place] [address] Referral ID Status Reason Start Date Expiration Date Visits V isits Requested Authorized [id number] New Request 06/26/2021 09/25/2022 1 1 Reason for Visit Reason Comments Procedure Procedure/Equipment (Routine) - Closed Specialty Diagnoses / Referred By Contact Referred To Contact Procedures Interventional Pain Mgmt Diagnoses Osteoarthritis of spine with radiculopathy, lumbar region (HRC) Cesar Scherer, [facility] Procedures FL C Arm 20 Pain Management 8[address] [facility] [address] [place] [address] [place], [place] Phone: [phone] Referral ID Status Reason Start Date Expiration Date Visits Requ ested Visits Authorized [id number] Closed 05/14/2021 08/13/2022 1 1 Encounter Details Date Type Department Care Team Description 06/26/2021 Procedure Visit [facility] Cesar Scherer MD [address] [facility] 600 [place] [address] Procedure [address] [facility] [address] Juan Miguel Buckley MD [address] [facility] [place] [address] [place] [address] 1, Jean Brady Rn [phone] Social History Tobacco Use Types Packs/Day Years [...] Dr. Scherer in 10-14 days. Please call [phone] to schedule an appointment if you do not already have one. Lumbar Epidural Injection Post-Procedure Instructions: ?? Rest today, you may resume your normal activities tomorrow (Physical Therapy & rn critical care can also be resumed next day). ?? [...] and Anesthesiologist Please contact the Pain Nurse ([phone]) for all medical/procedural questions regarding your care at the [facility] Please contact our Agricultural Plow Operator ([phone]) for all administrative/scheduling questions related to the [...] completed, patient verbalizes understanding. 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 Consent per MD. Rebecca Leiva RN - 06/26/2021 7:30 AM CDT Patient tolerated procedure well, vital signs stable. Post-procedure pain level 0/10 at rest, 0/10 with activity. Discharge instructions given (written & verbal review), patient verbalized understanding. Patient discharged to home at 0820 via ambulatory with tractor trailer truck driver. documented in this encounter Procedure Notes Juan Miguel Buckley MD - 06/26/2021 7:30 AM CDT Procedure Note Lumbar Interlaminar ERIN Procedure Date: 06/26/2021 Ed [facility] Date of : 1960 Interventionalist: Juan Miguel [...] prone on the fluoroscopy table. Then a ship design teacher film was taken to identify the correct [...] well and was discharged home, with a tractor trailer truck driver, in stable condition with post [...] 09/15/2022 Appointment Orthopedics Delgado Gottlieb MD [address] [place], [place] [address] (Wo rk) 10/08/2022 Appointment Orthopedics Delgado Gottlieb MD [address] [place], [place] [address] (Gavi rk) 05/27/2023 Appointment [...] (HRC) documented in this encounter Care Teams Time Motion Analyst Relationship Specialty Start Date End Date Ladan Song MD PCP - General Internal Medicine 08/18/17 09/29/21 documented as of this encounter
--- OUTSIDE RECORDS SUMMARY | 2022-08-12 09:42 | XMS_ITS | Encounter Summary ---
:1960 Author [facility] Address [address] [place] [address] Care Team Providers Name Role Phone Ladan Song MD Primary Care Provider Unavailable Reason for Visit (Routine) - Incomplete Specialty Diagnoses / Procedures Referred By Contact Refer red To Contact Procedures Cesar Scherer MD Foreign Image(s) CT L-Spine [address] W/WO IV Cont [place], [place] [phone] Referral ID Status Reason Start Date Expiration Date Visits V isits Requested Authorized [id number] Incomplete 12/07/2020 03/08/2022 1 1 Encounter Details Date Type Department Care Team Description 08/30/2020 Ancillary Procedure [facility] PACS [place] [address] [place] [address] Social History Tobacco Use Types [...] 09/15/2022 Appointment Orthopedics Delgado Gottlieb MD [address] [place], [place] [address] (Gavi rk) 10/08/2022 Appointment Orthopedics Delgado Gottlieb MD [address] [place], [place] [address] (Gavi presley) 05/27/2023 Appointment Chemo Therapy/Infusion Services documented as of this encounter Procedures Procedure Name Priority Date/Time Associated Diagnosis Comme nts FOREIGN IMAGE(S) CT Routine 08/30/2020 12:00 AM R esults for this L-SPINE W/WO IV MEMBER CERTIFICATION MANAGER procedure ar e in CONT the results section. documented in this encounter Results Foreign Image(s) CT L-Spine W/WO IV Cont (08/30/2020 12:00 AM MEMBER CERTIFICATION MANAGER) Specimen (Source) Anatomical Location Collection Method [...] on filedocumented in this encounter Care Teams Lead Software Architect Relationship Specialty Start Date End Date Ladan Song MD PCP - General Internal Medicine 08/18/17 09/29/21 documented as of this encounter
--- OUTSIDE RECORDS SUMMARY | 2022-08-12 09:42 | XMS_ITS | Encounter Summary ---
:1960 Author [facility] Address [address] [place] [address] Care Team Providers Name Role Phone Cintia Cobb MD Primary Care Provider [phone] Encounter Details Date Type Department Care Team Description 08/16/2019 Lab Requisition [facility] Aureliano Munoz, Encounter for [address] Roach MD screening for [place] [id number] [facility] res piratory [address] [facility] [phone] [place] [address] Social History Tobacco Use Types Packs/Day Years [...] Appointment Orthopedics Delgado Gottlieb MD [address] [facility] [place] [place] [address] (Gavi presley) 10/08/2022 Appointment Orthopedics Delgado Gottlieb MD [address] [facility] [place] [place] [address] (Wo rk) 05/27/2023 Appointment Chemo Therapy/Infusion Services documented as of this encounter Procedures Procedure Name Priority Date/Time Associated Diagnosis Comme nts TB GOLD, QUANTIFERON Routine 08/17/2019 11:32 Encounter for Re sults for this AM HEEL SEAT FLAP STAPLER screening for procedure are in respiratory the results tuberculosis section. documented in this encounter Results (ABNORMAL) TB Gold, QuantiFERON Plus (08/17/2019 11:32 AM HEEL SEAT FLAP STAPLER) [facility] Method Time Signature TB Gold, Indeterminate Negative 08/19/2019 [facility] QuantiFeron (A) 2:32 PM HEEL SEAT FLAP STAPLER [facility] Plus TB Nil Value 0.04 08/19/2019 [facility] 2:32 PM [facility]AT [facility]AP [facility] TB1 Minus Nil <0.01 08/19/2019 [facility] Value 2:32 PM HE[facility]AT [facility]AP [facility] TB2 Minus Nil <0.01 08/19/2019 [facility] Value 2:32 PM HE[facility]AT [facility]AP [facility] Mitogen Minus 0.39 08/19/2019 [facility] Nil Value 2:32 PM HE[facility]AT [facility]AP [facility] Specimen Anatomical Collection Method / Collection Time Recei shahid Time (Source) Location / Volume Laterality Blood Venipuncture / 08/17/2019 11:32 9 2:24 Unknown AM HEEL SEAT FLAP STAPLER PM HEEL SEAT FLAP STAPLER Narrative [facility] - 08/19/2019 2:32 P M HEEL SEAT FLAP STAPLER Nil ?TB1-Nil ? TB2-Nil ?Mitogen-Nil ??Result ?Interpretation [...] Organization Address City/State/ZIP Code Phon e Number [facility] [address] [place] [address] documented in this encounter Visit Diagnoses Diagnosis Encounter for screening for respiratory tuberculosis Screening examination for pulmonary tube rculosis documented in this encounter Care Teams Garland Machine Operator Relationship Specialty Start Date End Date Cintia Cobb MD PCP - General Family Practice 09/30/21 documented as of this encounter
--- OUTSIDE RECORDS SUMMARY | 2022-08-12 09:42 | XMS_ITS | Encounter Summary ---
:1960 Author Organization [facility] Address [address] [place] [address] Care Team Providers Name Role Phone Ladan Song MD Primary Care Provider Unavailable Reason for Visit Reason Comments Orders Needed Encounter Details Date Type Department Care Team Description 04/10/2020 Telephone [facility] Giovanni Granger MD Orders Needed [address] [facility] [place] [address] 1 [place] [address] [phone] (Wo rk) Social History Tobacco Use Types [...] 04/11/2020 4:00 PM CDT Order sent to [facility]. Left VM for patient regarding this and [facility] number to call to schedule. Radha Solo [...] and advised will need to speak with stamping press operator. Eli Mercado - 04/10/2020 11:42 AM CDT [...] off to attend a in the morning. [Delicatessen Slicer/Appt Center: If this call is after 3 p.m., communicate to patient: If we are not able to get back to you by the end of the day and your symptoms worsen please contact the Careline] [Delicatessen Slicer: Please inform patient that a referral does not guarantee insurance coverage. Patients should call the member services number on the back of their insurance ID card to understand whatcoverage for the services they are requesting.] documented in this encounter Plan of Treatment Upcoming Encounters Date Type Specialty Care Team Description 09/15/2022 Appointment Orthopedics Delgado Gottlieb MD [address] [place], [place] [address] (Gavi presley) 10/08/2022 Appointment Orthopedics Delgado Gottlieb MD [address] [place], [place] [address] (Gavi presley) 05/27/2023 Appointment Chemo Therapy/Infusion Services documented as of this encounter Visit Diagnoses Diagnosis Other intervertebral disc displacement, lumbar region (HRC) - Primary Displacement of lumbar intervertebral di sc (HRC) Displacement of lumbar intervertebral di sc without myelopathy documented in this encounter Care Teams Production Supervisor Relationship Specialty Start Date End Date Ladan Song MD PCP - General Internal Medicine 08/18/17 09/29/21 documented as of this encounter
--- OUTSIDE RECORDS SUMMARY | 2022-08-12 09:42 | XMS_ITS | Encounter Summary ---
:1960 Author [facility] Address [address] [place] [address] Care Team Providers Name Role Phone Ladan Song MD Primary Care Provider Unavailable Reason for Referral Procedure/Equipment (Routine) - Closed Specialty Diagnoses / Procedures Referred By Contact Refer red To Contact Diagnoses Spinal stenosis of lumbar region with neurogenic claudication Cesar Scherer MD Procedures CT Lumbar Spine Post Myelogram [address] [facility] [address] [place] [address] Referral ID Status Reason Start Date Expiration Date Visits Requ ested Visits Authorized [id number] Closed 03/12/2021 06/11/2022 1 1 Procedure/Equipment (Routine) - Incomplete Specialty Diagnoses / Procedures Referred By Contact Refer red To Contact Diagnoses Spinal stenosis of lumbar region with neurogenic claudication Cesar Scherer MD Procedures [place] Myelogram Lumbar Spine [address] [place] [address] Referral ID Status Reason Start Date Expiration Date Visits V isits Requested Authorized [id number] Incomplete 03/12/2021 06/11/2022 1 1 Reason for Visit Reason Comments QUESTIONS, GENERAL Encounter Details Date Type Department Care Team Description 03/12/2021 Telephone [facility] Cesar Champagne, QUESTIONS, GENERAL 8[address] [facility] [place], [place] [address] [address] [facility] [phone] 600 [place] [address] (Wo rk) Social History Tobacco Use Types [...] a left L3-4 transforaminal injection here at [facility]. If this is not therapeutically beneficial [...] 09/15/2022 Appointment Orthopedics Delgado Gottlieb MD [address] [place] [phone] (Gavi presley) 10/08/2022 Appointment Orthopedics Delgado Gottlieb MD [address] [place] [phone] (Gavi presley) 05/27/2023 Appointment Chemo [...] claudication documented in this encounter Care Teams Transfer Car Operator Relationship Specialty Start Date End Date Ladan Song MD PCP - General Internal Medicine 08/18/17 09/29/21 documented as of this encounter
--- OUTSIDE RECORDS SUMMARY | 2022-08-12 09:42 | XMS_ITS | Encounter Summary ---
:1960 Author [facility] Address [address] [place] [address] Care Team Providers Name Role Phone Ladan Song MD Primary Care Provider Unavailable Reason for Visit Reason Comments Post Visit Follow Up Phone Call Encounter Details Date Type Department Care Team Description 01/16/2021 Telephone [facility] Naima Narayan, Post Visit Follow Up 8100 [facility] RN Phone Call [place], [place] [address] Social History Tobacco Use Types [...] 09/15/2022 Appointment Orthopedics Delgado Gottlieb MD [address] [place], [place] [address] (Gavi presley) 10/08/2022 Appointment Orthopedics Delgado Gottlieb MD [address] [place], [place] [address] (Gavi presley) 05/27/2023 Appointment Chemo Therapy/Infusion Services documented as of this encounter Visit Diagnoses Not on filedocumented in this encounter Care Teams Dental Hygienist Mobile Coordinator Relationship Specialty Start Date End Date Ladan Song MD PCP - General Internal Medicine 08/18/17 09/29/21 documented as of this encounter
--- OUTSIDE RECORDS SUMMARY | 2022-08-12 09:42 | XMS_ITS | Encounter Summary ---
:1960 Author Organization [facility] Address [address] [place] [address] Care Team Providers Name Role Phone Ladan Song MD Primary Care Provider Unavailable Reason for Visit Reason Comments BACK PAIN, LOW Encounter Details Date Type Department Care Team Description 07/22/2018 [facility] Soumy[facility], 8100 [facility] [address] [place] [address] lumbar region (Primary [place], [place] Dx) [phone] Social History Tobacco Use Types Packs/Day Years [...] this encounter Patient Instructions Patient InstructionsEngeCassi torres, RUBBER INSULATOR - 07/22/2018 8:[address] Giovanni Wilson MD Orthopeadic Spine Grease Worker: Anya Pittman Please contact Anya for all administrative questions at [phone] Please contact the Spine Nurse for all medical related questions at [phone] Office Hours: Thursday-Thursday and AM Medication Requests: Prescriptions are not filled on Weekends or on Weekdays after 3:00PM For all medication refills: Request a refill using [facility] or contact your Pharmacy [place] TRAINING MANAGER documented in this encounter Progress Notes Giovanni Wilson MD - 07/22/2018 8:22 AM CST NAME: LAZ LUNA MR#: [id number] CSN: [id number] AUTHENTICATING CLINICIAN: Giovanni Wilson MD CONFIRM #: [id number] LOC: 711 CLINIC PROGRESS NOTE DATE OF VISIT: 07/22/2018 : 1960 CHIEF COMPLAINT: Follow up lumbar disk protrusion. 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 DAA:MEDQ C: R:07/22/18 11:28 CONFIRM#:[id number] [place] TRAINING MANAGER documented in this encounter Plan of Treatment Upcoming Encounters Date Type Specialty Care Team Description 09/15/2022 Appointment Orthopedics Delgado Gottlieb MD [address] [place], [place] [address] (Wo rk) 10/08/2022 Appointment Orthopedics Delgado Gottlieb MD [address] [place], [place] [address] (Wo rk) 05/27/2023 Appointment Chemo Therapy/Infusion Services documented as of this encounter Visit Diagnoses Diagnosis Other intervertebral disc displacement, lumbar region (HRC) - Primary documented in this encounter Care Teams Non Destructive Evaluation Manager Relationship Specialty Start Date End Date Ladan Song MD PCP - General Internal Medicine 08/18/17 09/29/21 documented as of this encounter
--- OUTSIDE RECORDS SUMMARY | 2022-08-12 09:42 | XMS_ITS | Encounter Summary ---
:1960 [facility] Address [address] [place] [address] Care Team Providers Name Role Phone Ladan Song MD Primary Care Provider Unavailable Reason for Visit Reason Comments QUESTIONS, GENERAL Surgery scheduling Encounter Details Date Type Department Care Team Description 07/29/2021 Telephone [facility] Cesar Champagne QUESTIONS, GENERAL 8100 [facility] MD Terri (Surgery scheduling) [place] [phone] [phone] [place] [address] Social History Tobacco Use Types Packs/Day [...] surgery at may further discuss with his home care companion Jackie as well (phone number left in ). WRITER Mandy Hinojosa - 07/29/2021 4:08 PM CST Use home number on file, it is his 's. His number doesn't have voicemail but hers does. WRITER Mandy Hinojosa - 07/29/2021 4:05 PM CST Patient was calling to talk about surgery scheduling. Occupational Therapy Teacher let him know order was being sent for authorization and that a corrections cadet would be reaching out to him (see messages below). He wouldlike to have surgery done in [place] or somewhere close. Please reach out to patient to give him an update. WRITER documented in this encounter Plan of Treatment Upcoming Encounters Date Type Specialty Care Team Description 09/15/2022 Appointment Orthopedics Delgado Gottlieb MD [address] [place] [phone] (Gavi presley) 10/08/2022 Appointment Orthopedics Delgado Gottlieb MD [address] [place] [phone] (Gavi presley) 05/27/2023 Appointment Chemo Therapy/Infusion Services documented as of this encounter Visit Diagnoses Not on filedocumented in this encounter Care Teams Recreation Officer Relationship Specialty Start Date End Date Ladan Song MD PCP - General Internal Medicine 08/18/17 09/29/21 documented as of this encounter
--- OUTSIDE RECORDS SUMMARY | 2022-08-12 09:42 | XMS_ITS | Encounter Summary ---
:1960 [facility] Address [address] [place] [address] Care Team Providers Name Role Phone Ladan Song MD Primary Care Provider Unavailable Reason for Visit Reason Comments Surgery Questions Encounter Details Date Type Department Care Team Description 12/03/2020 Telephone [facility] Rudy Horton, Surgery Questions 8100 [facility] [place], [place] [address] [address] [address] [place] [address] (Wo rk) Social History Tobacco Use Types [...] he had a recent Xray done at [facility] that shows ruptures at L3, L4 and [...] Center 12/25/2020 4:10 PM Cesar Scherer MD [facility] Advised patient to have his Xrays from [facility] released. Patient requesting to call phone if [...] he had a recent Xray done at [facility] that shows ruptures at L3, L4 and L5 so thinks he needs surgery. Pt states that if the recovery time would be more thana month he would need to figure something out. Pt did not want to schedule an appt until he talked to someone to get details. Please call pt at [phone], no VM is available so hopefully he can takethe call when it comes through. When did the issue start: ongoing Have you been seen for this recently?: No Last saw Dr Wilson in 2018. [[facility]/Appt Center: If yes, please include date and provider.] Is it okay to leave detailed message on your voicemail? no [[facility]/Appt Center: If this call is after 3 p.m., communicate to patient: If we are not able to get back to you by the end of the day and your symptoms worsen please contact the Careline] documented in this encounter Plan of Treatment Upcoming Encounters Date Type Specialty Care Team Description 09/15/2022 Appointment Orthopedics Delgado Gottlieb MD [address] [place] [phone] (Gavi presley) 10/08/2022 Appointment Orthopedics Delgado Gottlieb MD [address] [place], [place] [address] (Gavi presley) 05/27/2023 Appointment Chemo Therapy/Infusion Services documented as of this encounter Visit Diagnoses Not on filedocumented in this encounter Care Teams Baggage Checker Relationship Specialty Start Date End Date Ladan Song MD PCP - General Internal Medicine 08/18/17 09/29/21 documented as of this encounter
--- OUTSIDE RECORDS SUMMARY | 2022-08-12 09:42 | XMS_ITS | Encounter Summary ---
:1960 Author Organization [facility] Address [address] [place] [address] Care Team Providers Name Role Phone Ladan Song MD Primary Care Provider Unavailable Reason for Visit Reason Comments QUESTIONS, GENERAL Encounter Details Date Type Department Care Team Description 03/12/2021 Telephone [facility] Cesar Champagne, QUESTIONS, GENERAL 8100 [facility] [place], [place] [address] [address] [phone] [place] [phone] (Wo rk) Social History Tobacco Use [...] issues again and declined to giveinformation to radio news writer. 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 documented in this encounter Plan of Treatment Upcoming Encounters Date Type Specialty Care Team Description 09/15/2022 Appointment Orthopedics Delgado Gottlieb MD [address] [place] [phone] (Gavi presley) 10/08/2022 Appointment Orthopedics Delgado Gottlieb MD [address] [place] [phone] (Gavi presley) 05/27/2023 Appointment Chemo Therapy/Infusion Services documented as of this encounter Visit Diagnoses Not on filedocumented in this encounter Care Teams Oil Field Equipment Mechanic Relationship Specialty Start Date End Date Ladan Song MD PCP - General Internal Medicine 08/18/17 09/29/21 documented as of this encounter
--- OUTSIDE RECORDS SUMMARY | 2022-08-12 09:42 | XMS_ITS | Encounter Summary ---
:1960 Author Organization [facility] Address [address], [place] [address] Care Team Providers Name Role Phone Ladan Song MD Primary Care Provider Unavailable Reason for Referral (Routine) - Closed Specialty Diagnoses / Procedures Referred By Contact Refer red To Contact Diagnoses Spinal stenosis of lumbar region with neurogenic claudication Wellington Donaldson MD Procedures Dexamethasone Sodium Phos [address] [place] [phone] Referral ID Status Reason Start Date Expiration Date Visits Requ ested Visits Authorized [id number] Closed 01/15/2021 04/16/2022 1 1 Reason for Visit Reason Comments Procedure Procedure/Equipment (Routine) - Incomplete Specialty Diagnoses / Procedures Referred By Contact Refer red To Contact Diagnoses Spinal stenosis of lumbar region with neurogenic claudication Cesar Scherer MD Procedures FL C Arm 20 [facility] [address] [place] [phone] Referral ID Status Reason Start Date Expiration Date Visits V isits Requested Authorized [id number] Incomplete 12/25/2020 03/26/2022 1 1 Encounter Details Date Type Department Care Team Description 01/15/2021 Procedure Visit [facility] Cesar Scehrer MD [address] [facility] [address] [place] [address] Procedure 8100 [facility] Wellington Donaldson MD [address] [place] [address] [place], [place] [address] 1, Jean Jose Antonio Rn [phone] Social History Tobacco Use Types Packs/Day Years [...] Dr. Scherer in 10-14 days. Please call [phone] to schedule an appointment if you do not already have one. Lumbar Epidural Injection Post-Procedure Instructions: ?? Rest today, you may resume your normal activities tomorrow (Physical Therapy & skin care technician can also be resumed next day). ?? [...] you manage it. This is uncommon. Dr. Wellnigton Donaldson MD Interventional Pain Physician and Anesthesiologist Please contact the Pain Nurse ([phone]) for all medical/procedural questions regarding your care at the [facility] Please contact our Ethylene Plant Operator ([phone]) for all administrative/scheduling questions related to the [...] completed, patient verbalizes understanding. 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 Consent per MD. Snehal Goins [...] 01/15/2021 Interventionalist: Wellington Donaldson MD Patient: Laz Luna 1960 INDICATIONS FOR PROCEDURE: This is a [...] with the patient. The patient's / responsible constitution party's questions were answered. The patient / responsible constitution party appeared to understand and chose to proceed. Prior to the procedure a time out was completed , verifying correct patient, procedure, site, positioning, and implants and/or special equipment. The patient was taken to the procedure room and positioned prone on the fluoroscopy table. Then a information technology instructor film was taken to identify the correct [...] 09/15/2022 Appointment Orthopedics Delgado Gottlieb MD [address] [place], [place] [address] (Gavi presley) 10/08/2022 Appointment Orthopedics Delgado Gottlieb MD [address] [place], [place] [address] (Gavi presley) 05/27/2023 Appointment [...] claudication documented in this encounter Care Teams Business Communications Instructor Relationship Specialty Start Date End Date Ladan Song MD PCP - General Internal Medicine 08/18/17 09/29/21 documented as of this encounter
--- OUTSIDE RECORDS SUMMARY | 2022-08-12 09:42 | XMS_ITS | Encounter Summary ---
:1960 Author Organization [facility] Address [address] [place] [address] Care Team Providers Name Role Phone Cintia Cobb MD Primary Care Provider [phone] Reason for Visit Reason Comments Consult, New Patient Encounter Details Date Type Department Care Team Description 09/30/2021 Telephone Specialty Center [facility] , Consult, New Patient Orthopedics Clinic Provider 435 [facility] [place] [address] Social History Tobacco Use Types Packs/Day Years [...] 3:53 PM CST Yimi HOGAN, calling from [facility] in [place]. Looking for treatment advice. Believes patient needs surgery. -Left Distal Femur Fracture, DOI: 09/30/21, ~7 am Discussed with Leta Daigle and Niyah Cintron. Advised to have [facility] call [facility] at [phone], and also have them push imaging to [facility]. Called Yimi back and notified him of this. Verbal order per Provider [facility]. Mandy Galindo LPN BILITY ATTORNEY documented in this encounter Plan of Treatment Upcoming Encounters Date Type Specialty Care Team Description 09/15/2022 Appointment Orthopedics Delgado Gottlieb MD [address] [place], [place] [address] (Wo rk) 10/08/2022 Appointment Orthopedics Delgado Gottlieb MD [address] [place], [place] [address] (Wo rk) 05/27/2023 Appointment Chemo Therapy/Infusion Services documented as of this encounter Visit Diagnoses Not on filedocumented in this encounter Care Teams Laundry Helper Relationship Specialty Start Date End Date Cintia Cobb MD PCP - General Family Practice 09/30/21 documented as of this encounter
--- OUTSIDE RECORDS SUMMARY | 2022-08-12 09:43 | XMS_ITS | Encounter Summary ---
:1960 Author Organization [facility] Address [address] [facility] [place] [address] Care Team Providers Name Role Phone Ladan Song MD Primary Care Provider Unavailable Reason for Referral (Routine) - Closed Specialty Diagnoses / Procedures Referred By Contact Refer red To Contact Diagnoses Lumbar radiculopathy Juan Miguel Buckley MD Procedures Dexamethasone [address] [place] [address] Dr [place] [address] Referral ID Status Reason Start Date Expiration Date Visits Requ ested Visits Authorized [id number] Closed 07/07/2018 10/06/2019 1 1 Reason for Visit Reason Comments Procedure Procedure/Equipment (Routine) - Incomplete Specialty Diagnoses / Procedures Referred By Contact Refer red To Contact Diagnoses Low back pain, unspecified back pain laterality, unspecified chronicity, with sciatica presence unspecified (HRC) Giovanni Wilson MD Procedures FL C Arm 20 [facility] [address] [place] [address] Dr [place] [address] Referral ID Status Reason Start Date Expiration Date Visits V isits Requested Authorized [id number] Incomplete 06/07/2018 09/06/2019 1 1 Encounter Details Date Type Department Care Team Description 07/07/2018 Procedure Visit [facility] Giovanni Wilson MD 8100 [facility] [place] [address] [address] [place] [address] Juan Miguel Buckley MD 8100 [facility] [place] [address] [place] [address] 1 3, Jean Jose Antonio Martinez [phone] Social History Tobacco Use Types Packs/Day Years [...] Dr. Jamal Wilson in 10-14 days; call [phone] to schedule an appointment if you do not already have one. Lumbar Epidural Injection Post-Procedure Instructions: ?? Rest today, you may resume your normal activities tomorrow (Physical Therapy & residential care officer can also be resumed next day). ?? [...] and Anesthesiologist Please contact the Pain Nurse ([phone]) for all medical/procedural questions regarding your care at the [facility] Please contact our Small Kick Press Operator ([phone]) for all administrative/scheduling questions related to the [facility] Medication Requests: Prescriptions requiring refills must be requested from the prescribing physician. If Dr. uBckley prescribed your medication, call the number above. [...] completed, patient verbalizes understanding. 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 Consent per MD. Snehal Goins RN [...] prone on the fluoroscopy table. Then a control valve mechanic film was taken to identify the [...] well and was discharged home, with a truck driver heavy, in stable condition with post procedural instructions. [...] Appointment Orthopedics Delgado Gottlieb MD [address] [place], [place] [address] (Wo rk) 10/08/2022 Appointment Orthopedics Delgado Gottlieb MD [address] [place], [place] [address] (Wo rk) 05/27/2023 Appointment [...] (HRC) documented in this encounter Care Teams Marketing And Development Coordinator Relationship Specialty Start Date End Date Ladan Song MD PCP - General Internal Medicine 08/18/17 09/29/21 documented as of this encounter
--- OUTSIDE RECORDS SUMMARY | 2022-08-12 09:43 | XMS_ITS | Encounter Summary ---
:1960 Author [facility] Address [address], [place] [address] Care Team Providers Name Role Phone Ladan Song MD Primary Care Provider Unavailable Reason for Visit Reason Comments Pre-procedure Call Encounter Details Date Type Department Care Team Description 07/01/2018 Telephone [facility] Vicky Barrios RN Pre-procedure Call 8[address] [place], [place] [address] Social History Tobacco Use Types [...] Description 09/15/2022 Appointment Orthopedics Delgado Gottlieb MD [address] [place] [phone] (Gavi presley) 10/08/2022 Appointment Orthopedics Delgado Gottlieb MD [address] [place] [address] (Gavi presley) 05/27/2023 Appointment Chemo Therapy/Infusion Services documented as of this encounter Visit Diagnoses Not on filedocumented in this encounter Care Teams Instructional Media Services Technician Relationship Specialty Start Date End Date Ladan Song MD PCP - General Internal Medicine 08/18/17 09/29/21 documented as of this encounter
--- OUTSIDE RECORDS SUMMARY | 2022-08-12 09:43 | XMS_ITS | Encounter Summary ---
:1960 [facility] Address [address] [place] [address] Care Team Providers Name Role Phone Ladan Song MD Primary Care Provider Unavailable Reason for Visit Reason Comments Hand Therapy Encounter Details Date Type Department Care Team Description 09/08/2017 Office Visit [facility] Jerad Bell, Cubital tunnel syndrome on l eft (Primary Dx); 8[address] [facility] OTR/L [facility] Drive [address] [facility] [place] [address] [phone] Social History Tobacco Use Types Packs/Day Years [...] no past medical historyon file. 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 TREATMENT INTERVENTION: Therapeutic Exercise CPT 93244 (25 minutes) Exercise: All measurements updated today. Edema Management: Pt reports he is satisfied with his current tubi-concrete pourer supply and does not need additional. Scar [...] long-term goals. The patient is discharged from [facility] hand therapy with a home exercise program. [...] Therapist Signature: Jerad Bell MS, OTR/L # [id number] Visit #3 Payor: BCBS / Plan: BCBS PMAP BLUE ADVANTAGE / Product Type: Medicaid / LATION OPERATOR documented in this encounter Plan of Treatment Upcoming Encounters Date Type Specialty Care Team Description 09/15/2022 Appointment Orthopedics Delgado Gottlieb MD [address] [place] [address], [place] [address] (Wo rk) 10/08/2022 Appointment Orthopedics Delgado Gottlieb MD [address] [place], [place] [address] (Wo rk) 05/27/2023 Appointment [...] joint documented in this encounter Care Teams Yarn Texture Machine Operator Relationship Specialty Start Date End Date Ladan Song MD PCP - General Internal Medicine 08/18/17 09/29/21 documented as of this encounter
--- OUTSIDE RECORDS SUMMARY | 2022-08-12 09:43 | XMS_ITS | Encounter Summary ---
:1960 Author Organization [facility] Address [address] [place] [address] Care Team Providers Name Role Phone Ladan Song MD Primary Care Provider Unavailable Reason for Visit (Routine) - Incomplete Specialty Diagnoses / Procedures Referred By Contact Refer red To Contact Procedures Giovanni Wilson MD Foreign Image(s) CT L-Spine [address] [place] [address] Dr [address] [place], [place] [address] Referral ID Status Reason Start Date Expiration Date Visits V isits Requested Authorized [id number] Incomplete 06/07/2018 09/06/2019 1 1 Encounter Details Date Type Department Care Team Description 04/21/2018 Imaging Radiology PACS Giovanni Wilson MD [address] [place] [address] [place] [address] (Gavi rk) Social History Tobacco Use Types [...] Description 09/15/2022 Appointment Orthopedics Delgado Gottlieb MD [address] [place] [address] [place] [address] (Wo rk) 10/08/2022 Appointment Orthopedics Delgado Gottlieb MD [address] [place], [place] [address] (Wo rk) 05/27/2023 Appointment [...] provided, they will be located in the nj chai's chart under the Media or Imaging tab. Giovanni Wilson MD RAD NON-REPORTABLES Performing Organization Address City/State/ZIP Code Phon e Number POCT PN POCT documented in this encounter Visit Diagnoses Not on filedocumented in this encounter Care Teams Asbestos Abatement Technician Relationship Specialty Start Date End Date Ladan Song MD PCP - General Internal Medicine 08/18/17 09/29/21 documented as of this encounter
--- OUTSIDE RECORDS SUMMARY | 2022-08-12 09:43 | XMS_ITS | Encounter Summary ---
:1960 Author Organization [facility] Address [address] [facility] [address] Care Team Providers Name Role Phone Eric Bower MD Primary Care Provider Reason for Visit Procedure/Equipment (Routine) - Incomplete Specialty Diagnoses / Procedures Referred By Contact Refer red To Contact Diagnoses Arthritis of left elbow German Miller MD Procedures XR Elbow Lt 3+ Views [address] [facility] [place] [address] Referral ID Status Reason Start Date Expiration Date Visits V isits Requested Authorized [id number] Incomplete 11/03/2016 02/02/2018 1 1 Encounter Details Date Type Department Care Team Description 11/03/2016 Imaging [facility] German Miller MD Left elbow pain 8100 [facility] [address] [facility] [place] [address] 1 [place] [address] [phone] (Wo rk) Social History Tobacco Use Types [...] 09/15/2022 Appointment Orthopedics Delgado Gottlieb MD [address] [place], [place] [address] (Wo rk) 10/08/2022 Appointment Orthopedics Delgado Gottlieb MD [address] [place], [place] [address] (Wo rk) 05/27/2023 Appointment Chemo Therapy/Infusion Services documented as of this encounter Procedures Procedure Name Priority Date/Time Associated Diagnosis Comme nts XR ELBOW LT 3+ Routine 11/03/2016 11:04 AM Left elbow pain Res ults for this VIEWS RETAIL PROJECT MERCHANDISER procedure are i n the results section. documented in this encounter Results XR Elbow Lt 3+ Views (11/03/2016 11:04 AM RETAIL PROJECT MERCHANDISER) Anatomical Region Laterality Modality Upper Extremity, Elbow Digital Radiograp hy Specimen (Source) Anatomical Location Collection Method / Collectio n Time Received Time / Laterality Volume Narrative 11/03/2016 3:31 PM RETAIL PROJECT MERCHANDISER 3 views of the left elbow show [...] arm documented in this encounter Care Teams Information Security Associate Relationship Specialty Start Date End Date Eric Bower MD PCP - General 12/10/10 08/17/[address] [place] [phone] documented as of this encounter
--- OUTSIDE RECORDS SUMMARY | 2022-08-12 09:43 | XMS_ITS | Encounter Summary ---
:1960 Author Organization [facility] Address [address] [place] [address] Care Team Providers Name Role Phone Ladan Song MD Primary Care Provider Unavailable Reason for Visit Reason Comments ARM PAIN left Encounter Details Date Type Department Care Team Description 10/06/2017 Office Visit [facility] German Miller Hist [facility] surgery (Primary Dx) [address] [place] [address] [address] [place] [address] [place], [place] [phone] (Wo rk) Social History Tobacco Use Types [...] Miller MD Hand & Upper Extremity Surgeon C Software Engineer: Lalitha Watson Please contact Lalitha for all surgery scheduling and administrative questions at [phone] Hand Nurse: Leonardo Yao Please contact Leonardo for all medical related questions at [phone] Medication Requests: Prescriptions are not filled on Weekends or on Weekdays after 3:00PM For all medication refills: Request a refill using [employer] or contact your Pharmacy Please call [phone] to make future appointments. Follow up in 6 weeks as tolerated ACE COMBUSTION TESTER documented in this encounter Progress Notes German Miller MD - 10/06/2017 9:00 AM CST [facility] Postoperative Follow-Up 10/06/2017 History of Present Illness: [...] (b) the recordis accurate. German Miller MD ACE COMBUSTION TESTER documented in this encounter Plan of Treatment Upcoming Encounters Date Type Specialty Care Team Description 09/15/2022 Appointment Orthopedics Delgado Gottlieb MD [address] [place], [place] [address] (Wo rk) 10/08/2022 Appointment Orthopedics Delgado Gottlieb MD [address] [place], [place] [address] (Wo rk) 05/27/2023 Appointment Chemo Therapy/Infusion Services documented as of this encounter Visit Diagnoses Diagnosis History of elbow surgery - Primary Personal history of surgery to other org ans documented in this encounter Care Teams Regulatory Affairs Coordinator Relationship Specialty Start Date End Date Ladan Song MD PCP - General Internal Medicine 08/18/17 09/29/21 documented as of this encounter
--- OUTSIDE RECORDS SUMMARY | 2022-08-12 09:43 | XMS_ITS | Encounter Summary ---
:1960 Author Organization [facility] Address [address], [place] [address] Care Team Providers Name Role Phone Eric Bower MD Primary Care Provider Reason for Visit Reason Onset Date Comments RESULTS, TEST 12/17/2016 Encounter Details Date Type Department Care Team Description 12/17/2016 Telephone [facility] ANNI German Rob MD RESULTS, TEST [address] [facility] [place], [place] [address] [place] [address] [phone] (Wo rk) Social History Tobacco Use Types [...] 09/15/2022 Appointment Orthopedics Delgado Gottlieb MD [address] [place], [place] [phone] (Wo rk) 10/08/2022 Appointment Orthopedics Delgado Gottlieb MD [address] [place] [place] [phone] (Wo rk) 05/27/2023 Appointment Chemo Therapy/Infusion Services documented as of this encounter Visit Diagnoses Not on filedocumented in this encounter Care Teams Board Runner Relationship Specialty Start Date End Date Eric Bower MD PCP - General 12/10/10 08/17/[address] [phone] documented as of this encounter
--- OUTSIDE RECORDS SUMMARY | 2022-08-12 09:43 | XMS_ITS | Encounter Summary ---
:1960 Author Organization [employer] Address [address] [place] [address] Care Team Providers Name Role Phone Eric Bower MD Primary Care Provider Reason for Visit Reason Comments QUESTIONS, GENERAL Encounter Details Date Type Department Care Team Description 08/05/2017 Telephone [facility] ANNI German Rob, QUESTIONS, GENERAL [address] [facility] [place], [place] [address] [address]100 [facility] [phone] [place], [place] [address] (Wo rk) Social History Tobacco Use Types [...] back with further questions or concerns to [phone]. Y STAINER documented in this encounter Plan of Treatment Upcoming Encounters Date Type Specialty Care Team Description 09/15/2022 Appointment Orthopedics Delgado Gottlieb MD [address] [place], [place] [address] (Wo rk) 10/08/2022 Appointment Orthopedics Delgado Gottlieb MD [address] [place] [phone] (Gavi rk) 05/27/2023 Appointment Chemo Therapy/Infusion Services documented as of this encounter Visit Diagnoses Not on filedocumented in this encounter Care Teams Livestock Nutritionist Relationship Specialty Start Date End Date Eric Bower MD PCP - General 12/10/10 08/17/[address] [place] [phone] documented as of this encounter
--- OUTSIDE RECORDS SUMMARY | 2022-08-12 09:43 | XMS_ITS | Encounter Summary ---
:1960 Author Organization [facility] Address [address] [place] [address] Care Team Providers Name Role Phone Ladan Song MD Primary Care Provider Unavailable Reason for Visit Reason Comments Post-Op Follow Up Call Encounter Details Date Type Department Care Team Description 08/19/2017 Telephone [facility] German Miller, Post -Op Follow Up Call CENTER [address] [facility] [address] [place] [address] [place] [address] [place], [place] [phone] (Wo rk) Social History Tobacco Use Types [...] Please call him to clarify at . ER documented in this encounter Plan of Treatment Upcoming Encounters Date Type Specialty Care Team Description 09/15/2022 Appointment Orthopedics Delgado Gottlieb MD [address] [place], [place] [address] (Gavi rk) 10/08/2022 Appointment Orthopedics Delgado Gottlieb MD [address] [place] [phone] (Gavi presley) 05/27/2023 Appointment Chemo Therapy/Infusion Services documented as of this encounter Visit Diagnoses Not on filedocumented in this encounter Care Teams Clinician Oncology Relationship Specialty Start Date End Date Ladan Song MD PCP - General Internal Medicine 08/18/17 09/29/21 documented as of this encounter
--- OUTSIDE RECORDS SUMMARY | 2022-08-12 09:43 | XMS_ITS | Encounter Summary ---
:1960 Author Organization [employer] Address [address] [place] [address] Care Team Providers Name Role Phone Ladan Song MD Primary Care Provider Unavailable Reason for Visit Reason Comments Appt. Work In Request Encounter Details Date Type Department Care Team Description 03/24/2018 Telephone [facility] German Miller, Appt . Work In Request CENTER [address] [facility] [address] [place] [address] [place] [address] [place], [place] [phone] (Wo rk) Social History Tobacco Use Types [...] back with further questions or concerns to [phone]. Freda Yao RN - 03/24/2018 9:34 AM [...] bothering him. He did go to the [facility]. They did not see a fx. [...] 09/15/2022 Appointment Orthopedics Delgado Gottlieb MD [address] [place] [phone] (Gavi presley) 10/08/2022 Appointment Orthopedics Delgado Gottlieb MD [address] [place] [phone] (Gavi presley) 05/27/2023 Appointment Chemo Therapy/Infusion Services documented as of this encounter Visit Diagnoses Not on filedocumented in this encounter Care Teams Shellfish Checker Relationship Specialty Start Date End Date Ladan Song MD PCP - General Internal Medicine 08/18/17 09/29/21 documented as of this encounter
--- OUTSIDE RECORDS SUMMARY | 2022-08-12 09:43 | XMS_ITS | Encounter Summary ---
:1960 Author Organization [facility] Address [address] [place] [address] Care Team Providers Name Role Phone Ladan Song MD Primary Care Provider Unavailable Encounter Details Date Type Department Care Team Description 08/26/2017 Notes/Orders [facility] Radha Womack, OTR/L [address] [facility] [address] [facility] [address] [place] [address] 1 [place] [address] [phone] (Wo rk) Social History Tobacco Use Types [...] scheduled appointment next week. VINCENT Brady/Violette T #[id number] EXTENSION AGENT documented in this encounter Plan of Treatment Upcoming Encounters Date Type Specialty Care Team Description 09/15/2022 Appointment Orthopedics Delgado Gottlieb MD [address] [place] [phone] (Gavi presley) 10/08/2022 Appointment Orthopedics Delgado Gottlieb MD [address] [place] [phone] (Gavi presley) 05/27/2023 Appointment Chemo Therapy/Infusion Services documented as of this encounter Visit Diagnoses Not on filedocumented in this encounter Care Teams Order Make Up Clerk Relationship Specialty Start Date End Date Ladan Song MD PCP - General Internal Medicine 08/18/17 09/29/21 documented as of this encounter
--- OUTSIDE RECORDS SUMMARY | 2022-08-12 09:43 | XMS_ITS | Encounter Summary ---
:1960 Author Organization [facility] Address [address] [place] [address] Care Team Providers Name Role Phone Eric Bower MD Primary Care Provider Reason for Visit Reason Comments HAND PAIN left CTS Encounter Details Date Type Department Care Team Description 01/06/2017 Office Visit TRIGerman Watkins, Left carpal tunnel syndrome (Primary Dx); CENTER Left cubital tunnel syndrome; [address] [facility] [address] [facility] [address] [place] [address] Left elbow arthritis with loose bodies [place], [place] [address] [place], [place] [phone] (Wo rk) Social History Tobacco Use Types [...] Miller MD Hand & Upper Extremity Surgeon Rooming House Operator: Lalitha Watson Please contact Lalitha for all surgery scheduling and administrative questions at [phone] Hand Nurse: Leonardo Yao Please contact Leonardo for all medical related questions at [phone] Medication Requests: Prescriptions are not filled on Weekends or on Weekdays after 3:00PM For all medication refills: Request a refill using [employer] or contact your Pharmacy Please call [phone] to make future appointments. Follow up for surgery as scheduled documented in this encounter Progress Notes German Miller MD - 01/06/2017 6:22 AM CDT [facility] Follow-Up 01/06/2017 Chief Complaint: Left Elbow [...] 09/15/2022 Appointment Orthopedics Delgado Gottlieb MD [address] [place], [place] [address] (Wo rk) 10/08/2022 Appointment Orthopedics Delgado Gottlieb MD [address] [place], [place] [address] (Wo rk) 05/27/2023 Appointment Chemo Therapy/Infusion Services documented as of this encounter Visit Diagnoses Diagnosis Left carpal tunnel syndrome - Primary Carpal tunnel syndrome Left cubital tunnel syndrome Left elbow arthritis with loose bodies documented in this encounter Care Teams Flipping Machine Operator Relationship Specialty Start Date End Date Eric Bower MD PCP - General 12/10/10 08/17/[address] [place] [phone] documented as of this encounter
--- OUTSIDE RECORDS SUMMARY | 2022-08-12 09:43 | XMS_ITS | Encounter Summary ---
:1960 Author Organization [employer] Address [address] [address] Care Team Providers Name Role Phone Eric Bower MD Primary Care Provider Reason for Visit Reason Onset Date Comments QUESTIONS, GENERAL 11/26/2016 Encounter Details Date Type Department Care Team Description 11/26/2016 Telephone [facility] ANNI German Rob, QUESTIONS, GENERAL [address] [facility] [place], [place] [address] [address]100 [facility] [phone] [place], [place] [address] (Wo rk) Social History Tobacco Use Types [...] number. LM on to call back to [phone]. Freda Yao RN - 11/26/2016 9:07 AM CDT Pt calling via [employer]. States he has seen [facility] for his elbow. A CT was done and he has been referred to have an EMG. He has had to cancel this appt twice. He has been told that the EMG can be done here at [facility]. He would rather do this here as [facility] is closer [facility]. Wanting to know why he is being sent to [place] when this can be done here. Routing to [facility]. Can this be scheduled here? documented in this encounter Plan of Treatment Upcoming Encounters Date Type Specialty Care Team Description 09/15/2022 Appointment Orthopedics Delgado Gottlieb MD [address] [place], [place] [address] (Gavi presley) 10/08/2022 Appointment Orthopedics Delgado Gottlieb MD [address] [place], [place] [address] (Gavi presley) 05/27/2023 Appointment Chemo Therapy/Infusion Services documented as of this encounter Visit Diagnoses Not on filedocumented in this encounter Care Teams Abstract Maker Relationship Specialty Start Date End Date Eric Bower MD PCP - General 12/10/10 08/17/[address] [place] [phone] documented as of this encounter
--- OUTSIDE RECORDS SUMMARY | 2022-08-12 09:43 | XMS_ITS | Encounter Summary ---
:1960 Author Organization [facility] Address [address], [place] [address] Care Team Providers Name Role Phone Eric Bower MD Primary Care Provider Encounter Details Date Type Department Care Team Description 08/11/2017 Notes/Orders [facility] German Miller, Surg hayes, elective CENTER (Primary Dx) [address] [facility] [address] [place] [address] [address] [place] [address] [place], [place] [phone] (Gavi presley) Social History Tobacco Use Types [...] 09/15/2022 Appointment Orthopedics Delgado Gottlieb MD [address] [place], [place] [address] (Gavi presley) 10/08/2022 Appointment Orthopedics Delgado Gottlieb MD [address] [place], [place] [address] (Gavi presley) 05/27/2023 Appointment Chemo Therapy/Infusion Services documented as of this encounter Visit Diagnoses Diagnosis Surgery, elective - Primary Unspecified elective surgery for purpose s other than remedying health states documented in this encounter Care Teams Hospice Home Care Coordinator Relationship Specialty Start Date End Date Eric Bower MD PCP - General 12/10/10 08/17/[address] [phone] documented as of this encounter
--- OUTSIDE RECORDS SUMMARY | 2022-08-12 09:43 | XMS_ITS | Encounter Summary ---
:1960 Author Organization [facility] Address [address], [place] [address] Care Team Providers Name Role Phone Ladan Song MD Primary Care Provider Unavailable Reason for Visit Reason Comments ARM PAIN post op Encounter Details Date Type Department Care Team Description 11/17/2017 Office Visit German Wei Status post musculoskeletal system surgery (Primary Dx); MELANIA CMD Aftercare following surgery of the [facility] [address] [facility] [address] [place] [address] [place], [place] [address] [phone] Social History Tobacco Use Types Packs/Day Years [...] Miller MD Hand & Upper Extremity Surgeon Circular Knitter: Lalitha Watson Please contact Lalitha for all surgery scheduling and administrative questions at [phone] Hand Nurse: Leonardo Yao Please contact Leonardo for all medical related questions at [phone] Medication Requests: Prescriptions are not filled on Weekends or on Weekdays after 3:00PM For all medication refills: Request a refill using [employer] or contact your Pharmacy Please call [phone] to make future appointments. Follow up as needed documented in this encounter Progress Notes German Miller MD - 11/17/2017 9:00 AM CDT [facility] Postoperative Follow-Up 11/17/2017 History of [...] 09/15/2022 Appointment Orthopedics Delgado Gottlieb MD [address] [place], [place] [address] (Gavi presley) 10/08/2022 Appointment Orthopedics Delgado Gottlieb MD [address] [place], [place] [address] (Gavi presley) 05/27/2023 Appointment Chemo Therapy/Infusion Services documented as of this encounter Visit Diagnoses Diagnosis Status post musculoskeletal system surge ry - Primary Aftercare following surgery of the [facility] loskeletal system Aftercare following surgery of the muscogeekeletal system, NEC documented in this encounter Care Teams Language Asst Relationship Specialty Start Date End Date Ladan Song MD PCP - General Internal Medicine 08/18/17 09/29/21 documented as of this encounter
--- OUTSIDE RECORDS SUMMARY | 2022-08-12 09:43 | XMS_ITS | Encounter Summary ---
:1960 Author Organization [facility] Address [address] [place] [address] Care Team Providers Name Role Phone Ladan Song MD Primary Care Provider Unavailable Reason for Visit Reason Comments Elbow Problem Post Op Left ulnar nerve sub muscular transposition at elbow 08/18/17 Therapies (Routine) - Closed Specialty Diagnoses / Procedures Referred By Contact Refer red To Contact Diagnoses Cubital tunnel syndrome on left Stiffness of left elbow joint German Miller MD [address] [place] [address] [address] [place] [address] Referral ID Status Reason Start Date Expiration Date Visits Requ ested Visits Authorized [id number] Closed 08/18/2017 10/17/2017 1 1 Encounter Details Date Type Department Care Team Description 08/25/2017 Office Visit [facility] German Miller Status post musculoskeletal system surgery (Primary Dx); MELANIA Motta MD Aftercare following surgery of the [facility] [address] [place] [address] [place] [address] [phone] Social History Tobacco Use Types Packs/Day Years [...] Miller MD - 08/25/2017 1:11 PM CST [facility] Postoperative Follow-Up 08/25/2017 History of Present Illness: Laz Luna is a 57 y.o. male status-post left ulnar nerve submuscular transposition, elbow capsulectomy and open debridement and loose body removal of left elbow completed on 08/18/2017 [facility]. The patient [...] (b) the recordis accurate. German Miller MD PRESIDENT LENDING documented in this encounter Plan of Treatment Upcoming Encounters Date Type Specialty Care Team Description 09/15/2022 Appointment Orthopedics Delgado Gottlieb MD [address] [place], [place] [address] (Wo rk) 10/08/2022 Appointment Orthopedics Delgado Gottlieb MD [address] [place], [place] [address] (Wo rk) 05/27/2023 Appointment Chemo Therapy/Infusion Services Scheduled Referrals Name Type Priority Associated Diagnoses Order S chedule Hand Occupational Therapy Referral Routine Cubital tunnel Ordered: 08/18/2017 syndrome on left Stiffness of left elbow joint documented as of this encounter Visit Diagnoses Diagnosis Status post musculoskeletal system surge ry - Primary Aftercare following surgery of the [facility] loskeletal system Aftercare following surgery of the [facility] los[facility] system, NEC documented in this encounter Care Teams Truck Trailer Mechanic Relationship Specialty Start Date End Date Ladan Song MD PCP - General Internal Medicine 08/18/17 09/29/21 documented as of this encounter
--- OUTSIDE RECORDS SUMMARY | 2022-08-12 09:43 | XMS_ITS | Encounter Summary ---
:1960 Author Organization [facility] Address [address] [place] [address] Care Team Providers Name Role Phone Ladan Song MD Primary Care Provider Unavailable Reason for Visit Procedure/Equipment (Routine) - Canceled Specialty Diagnoses / Procedures Referred By Contact Refer red To Contact Diagnoses No diagnosis or condition on Ulster II (HRC) German Miller MD Procedures FL C Arm Mini [address] [facility] [place], [place] [address] Referral ID Status Reason Start Date Expiration Date Visits V isits Requested Authorized [id number] Canceled 08/18/2017 11/17/2018 1 1 Encounter Details Date Type Department Care Team Description 08/18/2017 Hospital Encounter [facility] German Miller No diagnosis or [address] Motta MD condition on [address] [facility] [address] [place] [facility] [address] [phone] Social History Tobacco Use Types Packs/Day Years [...] in 24 hours cyanocobalamin 3 10/28/2016 06/26/2021 ([id number]) 1000 MCG/ML injection HYDROmorphone Take 1-2 Tabs [...] Description 09/15/2022 Appointment Orthopedics Delgado Gottlieb MD [address] [place] [phone] (Gavi presley) 10/08/2022 Appointment Orthopedics Delgado Gottlieb MD [address] [place] [phone] (Gavi presley) 05/27/2023 Appointment Chemo Therapy/Infusion Services documented as of this encounter Visit Diagnoses Diagnosis No diagnosis or condition on Ulster II (HR C) Observation of other suspected mental co ndition documented in this encounter Care Teams Rn Care Transition Relationship Specialty Start Date End Date Ladan Song MD PCP - General Internal Medicine 08/18/17 09/29/21 documented as of this encounter
--- OUTSIDE RECORDS SUMMARY | 2022-08-12 09:43 | XMS_ITS | Encounter Summary ---
:1960 Author Organization [facility] Address [address], [place] [address] Care Team Providers Name Role Phone Eric Bower MD Primary Care Provider Reason for Referral Procedure/Equipment (Routine) - Incomplete Specialty Diagnoses / Procedures Referred By Contact Refer red To Contact Diagnoses Arthritis of left elbow German Miller MD Procedures CT Elbow Lt WO IV Cont [address] [facility] [facility] [address] JARVIS MD 2243 1 Referral ID Status Reason Start Date Expiration Date Visits V isits Requested Authorized [id number] Incomplete 11/03/2016 02/02/2018 1 1 UGATOR OPERATOR HELPER Procedure/Equipment (Routine) - Incomplete Specialty Diagnoses / Procedures Referred By Contact Refer red To Contact Diagnoses Arthritis of left elbow German Miller MD Procedures XR Elbow Lt 3+ Views [address] [facility] [facility] [address] JARVIS MD 5543 1 Referral ID Status Reason Start Date Expiration Date Visits V isits Requested Authorized [id number] Incomplete 11/03/2016 02/02/2018 1 1 UGATOR OPERATOR HELPER Reason for Visit Reason Comments Elbow Pain Left Encounter Details Date Type Department Care Team Description 11/03/2016 Surgical Consult [facility] German Miller hritis of left elbow (Primary Dx); MELANIA Motta MD 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 German Miller MD Hand & Upper Extremity Surgeon Log Chain Feeder: Lalitha Watson Please contact Lalitha for all surgery scheduling and administrative questions at [phone] Hand Nurse: Leonardo Yao Please contact Leonardo for all medical related questions at [phone] Medication Requests: Prescriptions are not filled on Weekends or on Weekdays after 3:00PM For all medication refills: Request a refill using [facility] or contact your Pharmacy Please call [phone] to make future appointments. Schedule CT scan and EMG Follow up for results as discussed Your Provider has ordered an EMG: Location: [facility] [address], [place] [address] Provider: Dr. Thompson Test Ordered: EMG Nerve Conduction Study Please be aware: Dr. Thompson's office will call you within 24 hours. If you have not heard from their office please call [phone]. To Do List: Please make an appointment with your referring provider in clinic to review the results. UGATOR OPERATOR HELPER documented in this encounter Progress Notes German Miller MD - 11/03/2016 6:31 AM CST [facility] [place] Consultation 11/03/2016 Chief Complaint: Left Elbow Pain [...] motion. Ed has been previously evaluated by [facility] for this same problem where they recommended [...] with the patient; this is located in [facility] in [facility]. Review of Systems: A 15-point review was [...] agreement of this plan. Scribe Disclosure: I, Meclhor Arevalo, am serving as a scribe to [...] 11/03/2016 at 11:23 AM. German Miller MD UGATOR OPERATOR HELPER documented in this encounter Plan of Treatment Upcoming Encounters Date Type Specialty Care Team Description 09/15/2022 Appointment Orthopedics Delgado Gottlieb MD [address] [place] [address] (Wo rk) 10/08/2022 Appointment Orthopedics Delgado Gottlieb MD [address] [place] [address] (Gavi presley) 05/27/2023 Appointment Chemo Therapy/Infusion Services documented as of this encounter Results CT Elbow Lt WO IV Cont (11/03/2016 1:56 PM CORRUGATOR OPERATOR HELPER) Anatomical Region Laterality Modality Upper Extremity, Forearm, Arm, Elbow Com puted Tomography Specimen (Source) Anatomical Collection Method Collection Time Re ceived Time Location / / Volume Laterality 11/03/2016 1:32 PM CORRUGATOR OPERATOR HELPER Impressions 11/03/2016 2:49 PM CORRUGATOR OPERATOR HELPER IMPRESSION: ??Moderate osteoarthritic changes and multiple ossific joint bodies. Narrative 11/03/2016 2:49 PM CORRUGATOR OPERATOR HELPER TECHNIQUE: ??Thin section axial scans were obtained [...] Elbow Lt 3+ Views (11/03/2016 11:04 AM CORRUGATOR OPERATOR HELPER) Anatomical Region Laterality Modality Upper Extremity, Elbow Digital Radiograp hy Specimen (Source) Anatomical Location Collection Method / Collectio n Time Received Time / Laterality Volume Narrative 11/03/2016 3:31 PM CORRUGATOR OPERATOR HELPER 3 views of the left elbow show [...] elbow documented in this encounter Care Teams Pulper Tender Relationship Specialty Start Date End Date Eric Bower MD PCP - General 12/10/10 08/17/[address] [place] [address] documented as of this encounter
--- OUTSIDE RECORDS SUMMARY | 2022-08-12 09:43 | XMS_ITS | Encounter Summary ---
:1960 Author Organization [facility] Address [address] [place] [address] Care Team Providers Name Role Phone Eric Bower MD Primary Care Provider Reason for Visit Procedure/Equipment (Routine) - Incomplete Specialty Diagnoses / Procedures Referred By Contact Refer red To Contact Diagnoses Arthritis of left elbow German Miller MD Procedures CT Elbow Lt WO IV Cont [address] [facility] [place], [place] [address] Referral ID Status Reason Start Date Expiration Date Visits V isits Requested Authorized [id number] Incomplete 11/03/2016 02/02/2018 1 1 Encounter Details Date Type Department Care Team Description 11/03/[address] Scan German Miller, Arthritis of left elbow [address] [facility] [place] [address] [address] [facility] [phone] [place], [place] [address] (Wo rk) Social History Tobacco Use Types [...] 09/15/2022 Appointment Orthopedics Delgado Gottlieb MD [address] [place], [place] [address] (Wo rk) 10/08/2022 Appointment Orthopedics Delgado Gottlieb MD [address] [place], [place] [address] (Gavi presley) 05/27/2023 Appointment Chemo Therapy/Infusion Services documented as of this encounter Procedures Procedure Name Priority Date/Time Associated Diagnosis Comme nts CT ELBOW LT WO IV Routine 11/03/2016 1:56 PM Arthritis of left Results for this CONT DISBURSING AGENT elbow procedure are i n the results section. documented in this encounter Results CT Elbow Lt WO IV Cont (11/03/2016 1:56 PM DISBURSING AGENT) Anatomical Region Laterality Modality Upper Extremity, Forearm, Arm, Elbow Com puted Tomography Specimen (Source) Anatomical Collection Method Collection Time Re ceived Time Location / / Volume Laterality 11/03/2016 1:32 PM DISBURSING AGENT Impressions 11/03/2016 2:49 PM DISBURSING AGENT IMPRESSION: ??Moderate osteoarthritic changes and multiple ossific joint bodies. Narrative 11/03/2016 2:49 PM DISBURSING AGENT TECHNIQUE: ??Thin section axial scans were obtained [...] elbow documented in this encounter Care Teams Nail Maker Relationship Specialty Start Date End Date Eric Bower MD PCP - General 12/10/10 08/17/[address] [address] documented as of this encounter
--- OUTSIDE RECORDS SUMMARY | 2022-08-12 09:43 | XMS_ITS | Encounter Summary ---
:1960 Author Organization [facility] Address [address] [place] [address] Care Team Providers Name Role Phone Ladan Song MD Primary Care Provider Unavailable Reason for Referral Procedure/Equipment (Routine) - Incomplete Specialty Diagnoses / Procedures Referred By Contact Refer red To Contact Diagnoses Low back pain, unspecified back pain laterality, unspecified chronicity, with sciatica presence unspecified (HRC) Giovanni Wilson MD Procedures FL C Arm 20 Pain Management [address] [facility] [place] [address] 1 Referral ID Status Reason Start Date Expiration Date Visits V isits Requested Authorized [id number] Incomplete 06/07/2018 09/06/2019 1 1 Reason for Visit Reason Comments BACK PAIN, LOW Encounter Details Date Type Department Care Team Description 06/07/2018 Office Visit [facility] Giovanni Wilson juani k pain, unspecified back pain laterality, unspecified chronicity, with sciatica presence unspecified (HRC) (Primary Dx); MELANIA Dooley MD Displacement of lumbar intervertebral di vt [address] [facility] [address] [facility] [place] [address] [phone] Social History Tobacco Use Types Packs/Day Years [...] CDT Dr. Giovanni Wilson MD Orthopeadic Spine Spout Positioner: Anya Pittman Please contact Anya for all administrative questions at [phone] Please contact the Spine Nurse for all medical related questions at [phone] Office Hours: Thursday-Thursday and AM Medication Requests: Prescriptions are not filled on Weekends or on Weekdays after 3:00PM For all medication refills: Request a refill using MyChart or contact your Pharmacy documented in this encounter Progress Notes Giovanni Wilson MD - 06/07/2018 12:00 PM CDT NAME: LAZ LUNA MR#: [id number] CSN: [id number] AUTHENTICATING CLINICIAN: Giovanni Wilson MD CONFIRM #: [id number] LOC: 711 CLINIC PROGRESS NOTE DATE OF VISIT: 06/07/2018 : 1960 NEW VISIT: CHIEF COMPLAINT: Radicular left leg pain and weakness. 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 He is [...] imaging of the lumbar spine through the [facility] system, which confirms disk bulging at L2-3 [...] Lumbar disk protrusion. CC: AZIZA MILLER MD [address] [place] [address] DAA:MEDQ C: R:06/07/18 12:40 CONFIRM#:[id number] documented in this encounter Plan of Treatment Upcoming Encounters Date Type Specialty Care Team Description 09/15/2022 Appointment Orthopedics Delgado Gottlieb MD [address] [place], [place] [address] (Wo rk) 10/08/2022 Appointment Orthopedics Delgado Gottlieb MD [address] [place], [place] [address] (Wo rk) 05/27/2023 Appointment [...] (HRC) documented in this encounter Care Teams Director Housekeeping Relationship Specialty Start Date End Date Ladan Song MD PCP - General Internal Medicine 08/18/17 09/29/21 documented as of this encounter
--- OUTSIDE RECORDS SUMMARY | 2022-08-12 09:43 | XMS_ITS | Encounter Summary ---
:1960 Author Organization [facility] Address [address] [place] [address] Care Team Providers Name Role Phone Ladan Song MD Primary Care Provider Unavailable Reason for Visit Procedure/Equipment (Routine) - Incomplete Specialty Diagnoses / Procedures Referred By Contact Refer red To Contact Procedures German Miller MD Foreign Image(S) XR Elbow [address] [facility] [place] [address] 1 Referral ID Status Reason Start Date Expiration Date Visits V isits Requested Authorized [id number] Incomplete 04/08/2018 07/08/2019 1 1 Encounter Details Date Type Department Care Team Description 02/14/2018 Imaging Radiology PACS German Miller MD [address] [place] [address] [place] [address] (Wo rk) Social History Tobacco Use Types [...] Description 09/15/2022 Appointment Orthopedics Delgado Gottlieb MD [address] [place] [address] [place] [address] (Wo rk) 10/08/2022 Appointment Orthopedics Delgado Gottlieb MD [address] [place], [place] [address] (Wo rk) 05/27/2023 Appointment [...] on filedocumented in this encounter Care Teams Take Down Sorter Relationship Specialty Start Date End Date Ladan Song MD PCP - General Internal Medicine 08/18/17 09/29/21 documented as of this encounter
--- OUTSIDE RECORDS SUMMARY | 2022-08-12 09:43 | XMS_ITS | Encounter Summary ---
:1960 Author Organization [facility] Address [address] [place] [address] Care Team Providers Name Role Phone Ladan Song MD Primary Care Provider Unavailable Reason for Referral Therapies (Routine) - Closed Specialty Diagnoses / Procedures Referred By Contact Refer red To Contact Diagnoses Cubital tunnel syndrome on left Stiffness of left elbow joint German Miller MD [address] [facility] [place], [place] [address] Referral ID Status Reason Start Date Expiration Date Visits Requ ested Visits Authorized [id number] Closed 08/18/2017 10/17/2017 1 1 Scheduling Instructions Your provider has recommended an appoint ment with [facility]. You may call [phone] to schedule your appoi ntment. If you do not schedule an appointment within the next 1 to 3 business days, we will call you to help arrange your appointment. We suggest you call your [employer] insurance Booster about your coverage and benefits for this appointment. NING SERVICES COORDINATOR Encounter Details Date Type Department Care Team Description 08/18/2017 Hospital Encounter [facility] German Miller Cubital tunnel syndrome on left (Primary Dx); Bren Motta MD Stiffness of left elbow joint [address] [facility] [place] [address] [phone] Social History Tobacco Use Types Packs/Day Years [...] 79.4 kg (175 lb) 08/17/2017 11:02 AM LEARNING SERVICES COORDINATOR Height 182.9 cm (6') 08/17/2017 11:02 AM LEARNING SERVICES COORDINATOR Body Mass Index 23.73 08/17/2017 11:02 AM LEARNING SERVICES COORDINATOR documented in this encounter Discharge Instructions Discharge Instr - Other German Ochoa MD - 08/18/2017 4:44 PM LEARNING SERVICES COORDINATOR Home Care following Hand Surgery Diet You [...] your surgery or post-surgical care call [facility] ([phone]) and ask for nurse triage. Home Care [...] the next 48-72 hours. Contact your physician ([phone]) if you have any of these problems: ?? Continued numbness or increased numbness or tingling. ?? Swelling of the extremity that makes the dressing too tight. Take special note of either extremities that are cold to the touch or exhibit blue coloring. ?? Excessive bleeding or drainage. ?? Severe pain. NING SERVICES COORDINATOR documented in this encounter Medications at Time [...] in 24 hours cyanocobalamin 3 10/28/2016 06/26/2021 ([id number]) 1000 MCG/ML injection HYDROmorphone Take 1-2 Tabs [...] candidate for surgery. German Miller MD 08/18/2017 NING SERVICES COORDINATOR Source Note - ProviderRoland MD - 08/17/2017 12:00 AM LEARNING SERVICES COORDINATOR documented in this encounter Procedure Notes German [...] home German Miller MD 4:31 PM 08/18/2017 NING SERVICES COORDINATOR German Miller MD - 08/18/2017 12:00 PM CST NAME: LAZ LUNA MR#: [id number] CSN: [id number] AUTHENTICATING CLINICIAN: German Miller MD CONFIRM #: [id number] LOC: 1 OPERATIVE REPORT DATE OF OPERATION: 08/18/2017 : 1960 SURGEON: German Miller MD PREOPERATIVE DIAGNOSES: 1.Left cubital tunnel syndrome. 2.Left elbow arthritis. 3.Left elbow loose bodies. POSTOPERATIVE DIAGNOSES: 1.Left cubital tunnel syndrome. 2.Left elbow arthritis. 3.Left elbow loose bodies. PROCEDURE PERFORMED: 1.Left ulnar nerve submuscular transposition. 2.Left elbow capsulectomy. 3.Left elbow open debridement and loose body removal. THREE DIMENSIONAL ART INSTRUCTOR: BEBETO Milian, medical laboratory assistant. ANESTHESIA: Brachial plexus block. ESTIMATED BLOOD [...] nerve further proximally and the arcade of [place] was released. I then traced the nerve [...] 6 weeks postop. MCW:KEISHA C: CONFIRM #: [id number] NING SERVICES COORDINATOR documented in this encounter Plan of Treatment Upcoming Encounters Date Type Specialty Care Team Description 09/15/2022 Appointment Orthopedics Delgado Gottlieb MD [address] [place], [place] [address] (Wo rk) 10/08/2022 Appointment Orthopedics Delgado Gottlieb MD [address] [place] [address] (Wo rk) 05/27/2023 Appointment Chemo [...] PM Result s for this MONITOR POCT LEARNING SERVICES COORDINATOR procedure are i n the results section. POTASSIUM STAT 08/18/2017 1:35 PM Results f or this LEARNING SERVICES COORDINATOR procedure are i n the results section. documented in this encounter Results Bedside Glucose Monitor (08/18/2017 1:50 PM LEARNING SERVICES COORDINATOR) P athologist Signature Bedside Blood 118 mg/dL PN SOFT Glucose Test Comment: Performed at [address] [facility] [place] [address] Specimen Anatomical Collection Method Collection Time Receive d Time (Source) Location / / Volume Laterality 08/18/2017 1:50 PM 7 1:55 LEARNING SERVICES COORDINATOR PM LEARNING SERVICES COORDINATOR German Miller MD LAB_1 Performing Organization Address [facility] Phon e Number PN SOFT [address] [place] [address] [phone] POTASSIUM (08/18/2017 1:35 PM LEARNING SERVICES COORDINATOR) athologist Signature Potassium 4.1 3.5 - 5.2 PN SOFT mmol/L Specimen Anatomical Collection Method Collection Time Receive d Time (Source) Location / / Volume Laterality 08/18/2017 1:35 PM 7 1:43 LEARNING SERVICES COORDINATOR PM LEARNING SERVICES COORDINATOR Narrative PN SOFT - 08/18/2017 2:31 PM LEARNING SERVICES COORDINATOR Performed at [place] [address] [place] [address] CLIA number [id number] German Miller MD LAB_1 Performing Organization Address [facility] Phon e Number PN SOFT [address] [place] [address] documented in this encounter Visit Diagnoses Diagnosis Cubital tunnel syndrome on left - Primar y Lesion of ulnar nerve Stiffness of left elbow joint documented in this encounter Administered Medications Inactive Administered Medications - up to 3 most recent administrations Medication Order MAR Action Action Date Dose Rate Site fentaNYL (SUBLIMAZE) injection 25-50 mcg 25-50 mcg, Intravenous, [id number], Other, Moderate to Severe Pain (pain score [...] Recently Administered Medications Times are shown in LEARNING SERVICES COORDINATOR. Scheduled Medication Order 08/16/2017 08/17/2017 08/18/2017 acetaminophen [...] (SUBLIMAZE) injection 25-50 mcg 25-50 mcg, Intravenous, [id number], Other, Moderate to Severe Pain (pain score [...] PACU/Recovery documented in this encounter Care Teams Optometry Professor Relationship Specialty Start Date End Date Ladan Song MD PCP - General Internal Medicine 08/18/17 09/29/21 documented as of this encounter
--- OUTSIDE RECORDS SUMMARY | 2022-08-12 09:43 | XMS_ITS | Encounter Summary ---
:1960 Author [facility] Address [address] [place] [address] Care Team Providers Name Role Phone Ladan Song MD Primary Care Provider Unavailable Reason for Visit Reason Comments Hand Therapy Encounter Details Date Type Department Care Team Description 09/01/2017 Office Visit [facility] Jerad Bell, Cubital tunnel syndrome on l eft (Primary Dx); [address] [facility] OTR/L [facility] Drive [address] [facility] [address] [place] [address] [phone] Social History Tobacco Use Types Packs/Day Years [...] past medical historyon file. 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 TREATMENT INTERVENTION: Therapeutic Exercise CPT 90547 (45 minutes) Exercise: Re-Issued handout, instructed in, [...] instruct in scar management. Patient lives in [place] so would like to minimize visits. Ifprogressing [...] Therapist Signature: Jerad Bell MS, OTR/L # [id number] Visit #2 Payor: [employer] / Plan: [facility] BLUE ADVANTAGE / Product Type: Medicaid / RWRITING DIRECTOR documented in this encounter Plan of Treatment Upcoming Encounters Date Type Specialty Care Team Description 09/15/2022 Appointment Orthopedics Delgado Gottlieb MD [address] [place], [place] [address] (Gavi presley) 10/08/2022 Appointment Orthopedics Delgado Gottlieb MD [address] [place], [place] [address] (Gavi presley) 05/27/2023 Appointment Chemo Therapy/Infusion Services documented as of this encounter Visit Diagnoses Diagnosis Cubital tunnel syndrome on left - Primar y Lesion of ulnar nerve [facility] Aftercare following surgery of the [facility] los[facility], NEC Loose body of left elbow Loose body in upper arm joint documented in this encounter Care Teams Margin Trimmer Relationship Specialty Start Date End Date Ladan Song MD PCP - General Internal Medicine 08/18/17 09/29/21 documented as of this encounter
--- OUTSIDE RECORDS SUMMARY | 2022-08-12 09:43 | XMS_ITS | Encounter Summary ---
:1960 Author Organization [facility] Address [address] [place] [address] Care Team Providers Name Role Phone Eric Bower MD Primary Care Provider Reason for Visit Reason Comments Procedure Bilateral upper extremity EM G Encounter Details Date Type Department Care Team Description 12/11/2016 Procedure Visit [facility] Rahel Decker (Bilateral CENTER Imani Conteh MD upper extremity EMG) [address] [place] [address] [phone] Social History Tobacco Use Types Packs/Day Years [...] Exam Date: 12/11/2016 Name: Laz Luna MR#: [id number] Gender: Male Date of : 1960 Age: [...] 09/15/2022 Appointment Orthopedics Delgado Gottlieb MD [address] [place] [address] (Gavi presley) 10/08/2022 Appointment Orthopedics Delgado Gottlieb MD [address] [place], [place] [address] (Gavi presley) 05/27/2023 Appointment Chemo Therapy/Infusion Services documented as of this encounter Visit Diagnoses Diagnosis Carpal tunnel syndrome of left wrist [G5 6.02] - Primary Carpal tunnel syndrome 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
--- OUTSIDE RECORDS SUMMARY | 2022-08-12 09:44 | XMS_ITS | Encounter Summary ---
:1960 [facility] Address [address], [place] [address] Care Team Providers Name Role Phone Eric Bower MD Primary Care Provider Encounter Details Date Type Department Care Team Description 09/07/1989 PN Conversion Only CALL CENTER COORDINATOR [address] [facility] Eric Bower MD [address] [facility] [address] [place] [address] (Gavi presley) Social History Tobacco [...] Appointment Orthopedics Delgado Gottlieb MD [address] [place], [place] [address] (Gavi rk) 10/08/2022 Appointment Orthopedics Delgado Gottlieb MD [address] [place], [place] [address] (Gavi presley) 05/27/2023 Appointment Chemo Therapy/Infusion Services documented as of this encounter Visit Diagnoses Not on filedocumented in this encounter Care Teams Preboarder Relationship Specialty Start Date End Date Eric Bower MD PCP - General 12/10/10 08/17/17 [address] [facility] [address] [place] [address] documented as of this encounter
--- OUTSIDE RECORDS SUMMARY | 2022-08-12 09:44 | XMS_ITS ---
:1960 Author Care Team Providers Name Role Phone [facility] Physical Therapist [phone] Allergies Code Code System Name Reaction [...] CT, Lumbar Spine, W/ Contrast Inspired S [facility] [address] [place], [place] [address] (Work Place) 12/20/2020 XR, Lumbosacral Spine Inspired Spine [facility] [address] [place] [address] (Work Place) Results Lab Results [...]
== END 2022-08-12 09:01 | disposition home or self-care (01) ==
PROVIDERS: PCP Physician Assistant Surgical; Visit Provider Nurse Practitioner Family
DX: E11.622 Type 2 diabetes mellitus with other skin ulcer (principal); L89.894 Pressure ulcer of other site, stage 4; R26.9 Unspecified abnormalities of gait and mobility
CPT/HCPCS: 11042

== ENCOUNTER 2022-08-19 10:20 | Outpatient (CLI) | payer BC, SELFPAY ==
--- OUTSIDE RECORDS SUMMARY | 2022-08-19 10:22 | XMS_ITS | Clinical Summary ---
:1960 Author Organization [facility] Address [address] [place] [address] Care Team Providers Name Role Phone Elsewhere, Pcp Primary Care Provider Unavailable Source Comments Patient records contain information from all sites at [facility]. For routine questions regarding patient records, call [phone] during business hours, M-F 8:00 AM - 5:00 PM Central Time. Record requests for emergency care only can be directed to [phone] at any time.[facility] Allergies Active Allergy Reactions Severity [...] at bedtime as needed for sleep. allopurinoL Take 1 tablet 90 tablet 3 [...] of iron tablet total) by mouth daily. finasteride (PROSCAR) Take 1 tablet (5 90 tablet 3 08/13/2021 5 mg tablet mg total) by 2 mouth daily. Active Problems Problem Noted Date [...] Added automatically from request for emiliano rossi [id number] Fracture Hip Closed Initial Left 08/12/2019 021 Hemorrhage Gastrointestinal 04/12/2018 12/19/2020 Wound Toe Without Damage To Nail Open Subsequent 01/08/2018 12/19/2020 Morbid Obesity Body Mass Index Greater Than Or Equal To 40 0 12/13/2014 11/25/2017 Adult Diabetes Mellitus Type 2 07/14/2013 08/14/2019 Encounters Date Type Specialty Care Team Description 08/18/2022 Refill Family Medicine [place] [facility] rashawn Piper M.D. 08/18/2022 [facility] rashawn Piper M.[facility]. 2022 Nurse Triage Community Internal Soni Benjamin M edical Information Medicine R.N. 2022 Nurse Triage Family Medicine Lesli Anguiano, Knee Injury R.N. 06/21/2022 Emergency Emergency Medicine Billy [facility] (Primary Dx) from Last 3 [...] (178 lb 9.2 oz) 09/30/2021 8:25 AM INTENSIVE CARE SPECIALIST Height 180.3 cm (5' 11) 06/21/2022 9:24 AM CDT Body Mass Index 24.22 08/12/2019 12:43 PM INTENSIVE CARE SPECIALIST Plan of Treatment Health Maintenance Due Date [...] history exists Medical Devices Implanted Type Area Department Head [employer] Device Shelf Model / Identifier Expiration Serial / Date Lot Lead 4076-52 Capsurefix Novus - Patel [id number] Cardiac Lead Heart Me dtronic / Implanted: Qty: 1 on 01/19/2017 [id number] / Description: Device Department Head [employer] - [employer] Body Location - Other. Right Atrial. Device Status Text - CARD LEAD-1 [id number]. Clip Device Hemostatic 235 - [id number] Hardware e.g. N/A: [place] [id number] 01/12/2021 [id number] / Implanted: Qty: 1 on 04/13/2018 by Rene Skinner M.D. at [facility] pins/screws/rods Stomach Scientific / [id number] Description: Resolution clip Scrw Lck Mariano Ti T25 5x38 - [id number] Hardware e.g. Left: Hip Depuy Synthes [id number] / Implanted: Qty: 1 on 08/13/2019 by John Sebastian M.D. at [facility] pins/screws/rods / Pacemaker Chuy Toribio L101 - Reader [id number] Pacemaker Other/Legacy - Caleb ton / Implanted: Qty: 1 on 01/19/2017 See Implant Scientific [id number] / Description Description: Device Department Head [employer] - Grow[employer]o [employer]. Body Location - Other. Left. Device Status Text - [id number]. Procedures Procedure Name Priority Date/Time Associated Comments [...] / Group Dates BLUE CROSS BCBS BLUE [id number] 2018-Prese ATTN: Angélica contreras HMO BLUE SHIELD PLUS HMO nt CONSUMER [facility] [address] [address] [place] [address] Advance Directives For more information, please contact: [phone] Documents on File Type Date Recorded Patient Data Lead Explanati on Advance Directives 11/17/2016 12:00 AM Legacy doc ument. See document viewer. Advance Directives 09/19/2016 12:00 AM Legacy doc ument. See document viewer. Latest Code [...] 4:16 PM 04/15/2018 9:11 PM Care Teams Seamer Relationship Specialty Start Date End Date Elsewhere, Pcp PCP - General Internal Medicine 06/21/22
--- OUTSIDE RECORDS SUMMARY | 2022-08-19 10:22 | XMS_ITS | Encounter Summary ---
:1960 Author Organization [facility] Address [address] [place] [address] Care Team Providers Name Role Phone Elsewhere, Pcp Primary Care Provider Unavailable Reason for Visit Reason Comments Med Refill Encounter Details Date Type Department Care Team Description 08/18/2022 Refill Department of [facility] Angélica Cobb Med Refill Medicine, [place] [facility], in [place] [phone] [place] [phone] Social History Tobacco Use Types Packs/Day Years [...] documented as of this encounter Care Teams Physiotherapy Assistant Relationship Specialty Start Date End Date Elsewhere, Pcp PCP - General Internal Medicine 06/21/22 documented as of this encounter
--- OUTSIDE RECORDS SUMMARY | 2022-08-19 10:22 | XMS_ITS | Encounter Summary ---
:1960 Author Organization [facility] Address [address] [place] [address] Care Team Providers Name Role Phone Elsewhere, Pcp Primary Care Provider Unavailable Reason for Visit Reason Comments Knee Injury Encounter Details Date Type Department Care Team Description 2022 Nurse Triage Department of [facility] Lesli Anguiano, Knee Injury Medicine in [facility] [address] [place] [address] Social History Tobacco Use Types [...] (bear weight) or walk Protocols used: Knee Adlsqw-[id number]-GA Care Advice Patient/Caregiver understands and will follow [...] documented as of this encounter Care Teams Load Builder Relationship Specialty Start Date End Date Elsewhere, Pcp PCP - General Internal Medicine 06/21/22 documented as of this encounter
--- OUTSIDE RECORDS SUMMARY | 2022-08-19 10:22 | XMS_ITS | Encounter Summary ---
:1960 Author Organization [facility] Address [address] [place] [address] Care Team Providers Name Role Phone Elsewhere, Pcp Primary Care Provider Unavailable Reason for Visit Reason Comments Med Refill Encounter Details Date Type Department Care Team Description 08/18/2022 Refill Department of [facility] Angélica Cobb Med Refill Medicine, [place] [facility], in [place] [phone] [place] [address] [phone] Social History Tobacco Use Types Packs/Day Years [...] as of this encounter Care Teams Chief Airport Guide Relationship Specialty Start Date End Date Elsewhere, Pcp PCP - General Internal Medicine 06/21/22 documented as of this encounter
--- OUTSIDE RECORDS SUMMARY | 2022-08-19 10:22 | XMS_ITS | Encounter Summary ---
:1960 Demographics Address [address] [place] [address] Home Phone Mobile Phone Email Address Email Address Preferred Language ENG Marital Status Adventist Affiliation Unknown Race White Ethnic Group Not or Author Organization [facility] Address [address] [place] [address] Care Team Providers Name Role Phone Elsewhere, Pcp Primary Care Provider Unavailable Reason for Visit Reason Comments Medical Information Encounter Details Date Type Department Care Team Description 2022 Nurse Triage Division of [facility] Soni Benjamin [facility] Internal Medicine, Angélica, R.NPili [facility] in [address] [place], [place] [address] [place] [phone] [place] [address] Social History Tobacco Use Types Packs/Day Years Used Date Smoking Tobacco: Never Smokeless Tobacco: Never Alcohol Use Standard Drinks/Week Comments No 0 (1 standard drink = 0.6 oz pure alcoho l) Sex Assigned at Date Recorded Not on file documented as of this encounter Miscellaneous Notes Telephone Encounter - Soni Benjamin R.N. - 2022 4:59 PM CDT Patient calls and states I fired [place] but was taken by ambulance to [place] and need to know if I need [...] documented as of this encounter Care Teams Dba Developer Relationship Specialty Start Date End Date Elsewhere, Pcp PCP - General Internal Medicine 06/21/22 documented as of this encounter
--- OUTSIDE RECORDS SUMMARY | 2022-08-19 10:23 | XMS_ITS | Encounter Summary ---
:1960 Author Organization [facility] Address [address] [place] [address] Care Team Providers Name Role Phone Cintia Cobb M.D. Primary Care Provider [phone] Reason for Visit Physical Therapy (Routine) - Canceled Specialty Diagnoses / Procedures Referred By Contact Refer red To Contact Diagnoses Fracture Femur Lower Multiple Closed Initial Left (HCC) Nathen Burger M.D. [facility] Procedures PT Ongoing treatment [facility] [address] [address] Referral ID Status Reason Start Date Expiration Date Visits V isits Requested Authorized [id number] Canceled 10/22/2021 10/22/2022 40 40 Encounter Details Date Type Department Care Team Description 11/19/2021 Clinical Support Department of Gustavo Burger M.D. [address] [address] Fracture Femur Rehabilitation Lesli Dias, P.T. [address] [place] [phone] Lower Multiple Services in [place] Closed In itial [place], [place] ([facility]) [address] [place] [phone] Social History Tobacco Use Types Packs/Day [...] Lower Multiple Closed Initial Left (HCC) Payor: [employer] [facility] CARE / Plan: [facility] [...] as of this encounter Care Teams Pool Lifeguard Relationship Specialty Start Date End Date Cintia Cobb M.D. PCP - General 02/19/17 02/20/[address] [phone] documented as of this encounter
--- OUTSIDE RECORDS SUMMARY | 2022-08-19 10:23 | XMS_ITS | Encounter Summary ---
:1960 Author Organization [facility] Address [address] [place] [address] Care Team Providers Name Role Phone Cintia Cobb M.D. Primary Care Provider [phone] Reason for Visit Reason Comments Med Refill Encounter Details Date Type Department Care Team Description 12/18/2021 Refill Department of [facility] Angélica Cobb Med Refill Medicine, [facility], in [address] [address] [place], [place] [address] [phone] Social History Tobacco Use Types Packs/Day Years [...] documented as of this encounter Care Teams Forestry Patrolman Relationship Specialty Start Date End Date Cintia Cobb M.D. PCP - General 02/19/17 02/20/[address] [place] [phone] documented as of this encounter
--- OUTSIDE RECORDS SUMMARY | 2022-08-19 10:23 | XMS_ITS | Encounter Summary ---
:1960 Author Organization [facility] Address [address] [place] [address] Care Team Providers Name Role Phone Cintia Cobb M.D. Primary Care Provider [phone] Reason for Visit Physical Therapy (Routine) - Canceled Specialty Diagnoses / Procedures Referred By Contact Refer red To Contact Diagnoses Fracture Femur Lower Multiple Closed Initial Left (HCC) Nathen Burger M.D. [facility] Procedures PT Ongoing treatment [facility] [address] [address] Referral ID Status Reason Start Date Expiration Date Visits V isits Requested Authorized [id number] Canceled 10/22/2021 10/22/2022 40 40 Encounter Details Date Type Department Care Team Description 11/01/2021 Clinical Support Department of Gustavo Burger M.D. [address] [address] Fracture Femur Rehabilitation Lesli Dias, P.T. [address] [place] [phone] Lower Multiple Services in [place] Closed In itial [place], [place] ([facility]) [address] [place] [phone] Social History Tobacco Use Types Packs/Day [...] Lower Multiple Closed Initial Left (HCC) Payor: [employer] [facility] CARE / Plan: [facility] BLUE [facility] HMO / Product Type: Medicaid HMO [...] 15 min Therapeutic Exercise (min): 25 min ACT LENS BLOCKER documented in this encounter Plan of Treatment Not on filedocumented as of this encounter Visit Diagnoses Diagnosis Fracture Femur Lower Multiple Closed Ini tial Left (HCC) documented in this encounter Additional Health Concerns Assessment Noted Time PHQ-9 Depression Total Score: 18 02/14/2013 9:53 AM CD T documented as of this encounter Care Teams Feature Writer Relationship Specialty Start Date End Date Cintia Cobb M.D. PCP - General 02/19/17 02/20/[address] [phone] documented as of this encounter
--- OUTSIDE RECORDS SUMMARY | 2022-08-19 10:23 | XMS_ITS | Encounter Summary ---
:[address] [facility] Address [address] [place] [address] Care Team Providers Name Role Phone Cintia Cobb M.D. Primary Care Provider [phone] Reason for Visit Physical Therapy (Routine) - Canceled Specialty Diagnoses / Procedures Referred By Contact Refer red To Contact Diagnoses Fracture Femur Lower Multiple Closed Initial Left (HCC) Nathen Burger M.D. [facility] Procedures PT Ongoing treatment [facility] [address] [address] Referral ID Status Reason Start Date Expiration Date Visits V isits Requested Authorized [id number] Canceled 10/22/2021 10/22/2022 40 40 Encounter Details Date Type Department Care Team Description 11/25/2021 Clinical Support Department of Gustavo Burger M.D. [address] [address] Fracture Femur Rehabilitation eLsli Dias, P.T. [address] [place] [phone] Lower Multiple Services in [place] Closed In itial [place], [place] ([facility]) [address] [place] [phone] Social History Tobacco Use Types Packs/Day [...] Lower Multiple Closed Initial Left (HCC) Payor: [employer] [place] CARE / Plan: BCBS BLUE PLUS HMO [...] TREATMENT Treatment today consisted of: Performed the Informous-NuMedii Total body ergometer times 16??minutes at a [...] as of this encounter Care Teams Data Warehouse Architect Relationship Specialty Start Date End Date Cintia Cobb M.D. PCP - General 02/19/17 02/20/[address] [address] documented as of this encounter
--- OUTSIDE RECORDS SUMMARY | 2022-08-19 10:23 | XMS_ITS | Encounter Summary ---
:1960 Author Organization [facility] Address [address] [place] [address] Care Team Providers Name Role Phone Cintia Cobb M.D. Primary Care Provider [phone] Reason for Visit Physical Therapy (Routine) - Canceled Specialty Diagnoses / Procedures Referred By Contact Refer red To Contact Diagnoses Fracture Femur Lower Multiple Closed Initial Left (HCC) Nathen Burger M.D. [facility] Procedures PT Ongoing treatment [facility] [address] [address] Referral ID Status Reason Start Date Expiration Date Visits V isits Requested Authorized [id number] Canceled 10/22/2021 10/22/2022 40 40 Encounter Details Date Type Department Care Team Description 12/09/2021 Clinical Support Department of Gustavo Burger M.D. [address] [place] [address] Fracture Femur Rehabilitation Lesli Dias, P.T. [address] [place] [phone] Lower Multiple Services in [place] Closed In itial [place], [place] ([facility]) [address] [place] [phone] Social History Tobacco Use Types Packs/Day [...] Lower Multiple Closed Initial Left (HCC) Payor: [employer] [place] CARE / Plan: [facility] BLUE [...] documented as of this encounter Care Teams Huller Operator Relationship Specialty Start Date End Date Cintia Cobb M.D. PCP - General 02/19/17 02/20/[address] [place] [phone] documented as of this encounter
--- OUTSIDE RECORDS SUMMARY | 2022-08-19 10:23 | XMS_ITS | Encounter Summary ---
:1960 Author Organization [facility] Address [address] [place] [address] Care Team Providers Name Role Phone Cintia Cobb M.D. Primary Care Provider Reason for Visit Physical Therapy (Routine) - Canceled Specialty Diagnoses / Procedures Referred By Contact Refer red To Contact Diagnoses Fracture Femur Lower Multiple Closed Initial [facility] ([facility]) Nathen Burger M.D. [facility] Procedures PT Ongoing treatment [facility] [address] [address] Referral ID Status Reason Start Date Expiration Date Visits V isits Requested Authorized [id number] Canceled 10/22/2021 10/22/2022 40 40 Encounter Details Date Type Department Care Team Description 11/15/2021 Clinical Support Department of Gustavo Burger M.D. [address] [address] Fracture Femur Rehabilitation Emelia Acosta, P.TPili Lower Multiple Services in [facility] [place], [place] ([facility]) [address] [place] [phone] Social History Tobacco Use Types Packs/Day Years [...] Lower Multiple Closed Initial Left (HCC) Payor: [employer] [place] CARE / Plan: BC BLUE PLUS [...] 13 min Therapeutic Exercise (min): 22 min D OFFICER documented in this encounter Plan of Treatment Not on filedocumented as of this encounter Visit Diagnoses Diagnosis Fracture Femur Lower Multiple Closed Ini tial Left (HCC) documented in this encounter Additional Health Concerns Assessment Noted Time PHQ-9 Depression Total Score: 18 02/14/2013 9:53 AM CD T documented as of this encounter Care Teams Commercial Front Load Driver Relationship Specialty Start Date End Date Cintia Cobb M.D. PCP - General 02/19/17 02/20/[address] [address] documented as of this encounter
--- OUTSIDE RECORDS SUMMARY | 2022-08-19 10:23 | XMS_ITS | Encounter Summary ---
:1960 Author Organization [facility] Address [address] [place] [address] Care Team Providers Name Role Phone Cintia Cobb M.D. Primary Care Provider [phone] Reason for Visit Physical Therapy (Routine) - Canceled Specialty Diagnoses / Procedures Referred By Contact Refer red To Contact Diagnoses Fracture Femur Lower Multiple Closed Initial Left (HCC) Nathen Burger M.D. [facility] Procedures PT Ongoing treatment [facility] [address] [address] Referral ID Status Reason Start Date Expiration Date Visits V isits Requested Authorized [id number] Canceled 10/22/2021 10/22/2022 40 40 Encounter Details Date Type Department Care Team Description 10/30/2021 Clinical Support Department of Gustavo Buregr M.D. [address] [address] Fracture Femur Rehabilitation Lesli Dias, P.T. [address] [place] [phone] Lower Multiple Services in [place] Closed In itial [place], [place] ([facility]) [address] [place] [phone] Social History Tobacco Use Types Packs/Day [...] Patient's Name: Laz Luna Referring Provider: Nathen Burgre M.D. Visit Diagnosis: 1. Fracture Femur Lower Multiple Closed Initial Left (HCC) Payor: [employer] [facility] CARE / Plan: [facility] BLUE PLUS HMO / [...] TREATMENT Treatment today consisted of: Perform the Footmarks-Fit Total body ergometer times 10 minutes at [...] min Total Treatment Time (min): 35 min OTHERAPIST documented in this encounter Plan of Treatment Not on filedocumented as of this encounter Visit Diagnoses Diagnosis Fracture Femur Lower Multiple Closed Ini tial Left (HCC) documented in this encounter Additional Health Concerns Assessment Noted Time PHQ-9 Depression Total Score: 18 02/14/2013 9:53 AM CD T documented as of this encounter Care Teams Testing Analyst Relationship Specialty Start Date End Date Cintia Cobb M.D. PCP - General 02/19/17 02/20/[address] [phone] documented as of this encounter
--- OUTSIDE RECORDS SUMMARY | 2022-08-19 10:23 | XMS_ITS | Encounter Summary ---
:1960 Author Organization [facility] Address [address] [place] [address] Care Team Providers Name Role Phone Cintia Cobb M.D. Primary Care Provider [phone] Reason for Visit Physical Therapy (Routine) - Canceled Specialty Diagnoses / Procedures Referred By Contact Refer red To Contact Diagnoses Fracture Femur Lower Multiple Closed Initial Left (HCC) Nathen Burger M.D. [facility] Procedures PT Ongoing treatment [facility] [address] [address] Referral ID Status Reason Start Date Expiration Date Visits V isits Requested Authorized [id number] Canceled 10/22/2021 10/22/2022 40 40 Encounter Details Date Type Department Care Team Description 11/07/2021 Clinical Support Department of Gustavo Burger M.D. [address] [address] Fracture Femur Rehabilitation Lesli Dias, P.T. [address] [place] [phone] Lower Multiple Services in [place] Closed In itial [place], [place] ([facility]) [address] [place] [phone] Social History Tobacco Use Types Packs/Day [...] Lower Multiple Closed Initial Left (HCC) Payor: [employer] [facility] CARE / Plan: [facility] BLUE PLUS HMO / Product Type: [...] min Total Treatment Time (min): 45 min K COUNTER documented in this encounter Plan of Treatment Not on filedocumented as of this encounter Visit Diagnoses Diagnosis Fracture Femur Lower Multiple Closed Ini tial Left (HCC) documented in this encounter Additional Health Concerns Assessment Noted Time PHQ-9 Depression Total Score: 18 02/14/2013 9:53 AM CD T documented as of this encounter Care Teams Cork Compounder Relationship Specialty Start Date End Date Cintia Cobb M.D. PCP - General 02/19/17 02/20/[address] [address] documented as of this encounter
--- OUTSIDE RECORDS SUMMARY | 2022-08-19 10:23 | XMS_ITS | Encounter Summary ---
:1960 Author Organization [facility] Address [address] [place] [address] Care Team Providers Name Role Phone Cintia Cobb M.D. Primary Care Provider [phone] Reason for Visit Reason Comments Med Refill Encounter Details Date Type Department Care Team Description 11/18/2021 Refill Department of [facility] Angélica Cobb Med Refill Medicine, [facility], in [address] [address] [place], [place] [address] [phone] Social History Tobacco Use Types Packs/Day Years [...] documented as of this encounter Care Teams Dry Cleaning Counter Clerk Relationship Specialty Start Date End Date Cintia Cobb M.D. PCP - General 02/19/17 02/20/[address] [place] [phone] documented as of this encounter
--- OUTSIDE RECORDS SUMMARY | 2022-08-19 10:23 | XMS_ITS | Encounter Summary ---
:1960 Author Organization [facility] Address [address] [place] [address] Care Team Providers Name Role Phone Elsewhere, Pcp Primary Care Provider Unavailable Reason for Visit Reason Comments Fall Pt arrived via [facility] foll owing a fall at a farm site. Pt reported he landed on his knee. Encounter Details Date Type Department Care Team Description 06/21/[address] [facility] Billy Camacho ist[facility] Falling [facility] [place] Mary Carmen Munguia (Primary Dx) Emergency Department [address] [place] [address] [place], [place] [phone] (Wo rk) [address] [phone] Social History Tobacco Use Types Packs/Day Years [...] mg of iron total) by mouth daily. furosemide (LASIX) 40 [...] bedtime as needed for sleep. finasteride (PROSCAR) 5 Take 1 tablet (5 mg 90 tablet 3 03/202108/13/2022 mg tablet total) by mouth daily. documented as of this encounter Progress Notes Lesli Go L.I.C.S.W. - 06/21/2022 11:25 AM CDT Progress Note - Care Coordination SUBJECTIVE Patient is a 61 year old man who presented to the [facility] emergency department earlier today after a reported fall at a local worksite. Criminal Intelligence Analyst was consulted by nursing staff to assist [...] not completed with the patient today. INTERVENTIONS Criminal Intelligence Analyst provided a cab voucher to the patient as requested and instructed him to call [employer] this service. Patient reported that his truck remains at [facility] in [place] and once he can get there he plans to return home. PLAN Patient discharged from the emergency department at this time with no further identified needs. Alexandre ValeraIPiliC.S.W. 06/21/22 documented in this encounter ED Notes Billy Camacho P.A.-C. - 06/21/2022 10:14 AM CDT SUBJECTIVE CHIEF COMPLAINT / REASON FOR VISIT: Fall (Pt arrived via [facility] following a fall at a farm [...] Hooker Relationship Specialty Start Date End Date Elsewhere, Pcp PCP - General Internal Medicine 06/21/22 documented as of this encounter
--- OUTSIDE RECORDS SUMMARY | 2022-08-19 10:23 | XMS_ITS | Encounter Summary ---
:1960 Author Organization [facility] Address [address] [place] [address] Care Team Providers Name Role Phone Cintia Cobb M.D. Primary Care Provider [phone] Reason for Visit Physical Therapy (Routine) - Canceled Specialty Diagnoses / Procedures Referred By Contact Refer red To Contact Diagnoses Fracture Femur Lower Multiple Closed Initial Left (HCC) Nathen Burger M.D. [facility] Procedures PT Ongoing treatment [facility] [place] [facility] [address] [address] Referral ID Status Reason Start Date Expiration Date Visits V isits Requested Authorized [id number] Canceled 10/22/2021 10/22/2022 40 40 Encounter Details Date Type Department Care Team Description 12/17/2021 Clinical Support Department of Gustavo Burger M.D. [address] [address] Fracture Femur Rehabilitation Lesli Dias, P.T. [address] [place] [phone] Lower Multiple Services in [place] Closed In itial [place], [place] ([facility]) [address] [place] [phone] Social History Tobacco Use Types Packs/Day [...] Lower Multiple Closed Initial Left (HCC) Payor: [employer] [facility] CARE / Plan: [facility] BLUE PLUS HMO / Product Type: Medicaid [...] documented as of this encounter Care Teams Dredge Pipe Operator Relationship Specialty Start Date End Date Cintia Cobb M.D. PCP - General 02/19/17 02/20/[address] [address] documented as of this encounter
--- OUTSIDE RECORDS SUMMARY | 2022-08-19 10:23 | XMS_ITS | Encounter Summary ---
:1960 Author Organization [facility] Address [address] [place] [address] Care Team Providers Name Role Phone Cintia Cobb M.D. Primary Care Provider [phone] Reason for Visit Physical Therapy (Routine) - Canceled Specialty Diagnoses / Procedures Referred By Contact Refer red To Contact Diagnoses Fracture Femur Lower Multiple Closed Initial [facility] ([facility]) Nathen Burger M.D. [facility] Procedures PT Ongoing treatment [facility] [address] [address] Referral ID Status Reason Start Date Expiration Date Visits V isits Requested Authorized [id number] Canceled 10/22/2021 10/22/2022 40 40 Encounter Details Date Type Department Care Team Description 11/13/2021 Clinical Support Department of Gustavo Burger M.D. [address] [address] Fracture Femur Rehabilitation Emelia Acosta, P.TPili Lower Multiple Services in [facility] [place], [place] ([facility]) [address] [place] [phone] Social History Tobacco Use Types Packs/Day Years [...] Lower Multiple Closed Initial Left (HCC) Payor: [employer] [place] CARE / Plan: [facility] [employer] HMO / Product Type: Medicaid HMO / [...] min Total Treatment Time (min): 45 min E PRIVATE DUTY documented in this encounter Plan of Treatment Not on filedocumented as of this encounter Visit Diagnoses Diagnosis Fracture Femur Lower Multiple Closed Ini tial Left (HCC) documented in this encounter Additional Health Concerns Assessment Noted Time PHQ-9 Depression Total Score: 18 02/14/2013 9:53 AM CD T documented as of this encounter Care Teams Respiratory Therapy Manager Relationship Specialty Start Date End Date Cintia Cobb M.D. PCP - General 02/19/17 02/20/[address] [phone] documented as of this encounter
--- OUTSIDE RECORDS SUMMARY | 2022-08-19 10:23 | XMS_ITS | Encounter Summary ---
:1960 Author Organization [facility] Address [address] [place] [address] Care Team Providers Name Role Phone Cintia Cobb M.D. Primary Care Provider [phone] Reason for Visit Reason Comments ED visit Encounter Details Date Type Department Care Team Description 09/30/2021 Clinical Communication Department of [facility] Duncan donahue, ED visit Medicine, Jose Daniel Piper M.D. [facility], [address] [address] [place], [place] [phone] (Work) [phone] Social History Tobacco Use Types Packs/Day Years [...] 10/01/21 due to currently being in the [place] ED with a broken leg. Patient wanted Dr Song to be aware. Name of Medication (if relevant): na Please send all scheduling replies to scheduling pool. TH CARE CONSULTANT documented in this encounter Plan of Treatment Not on filedocumented as of this encounter Visit Diagnoses Not on filedocumented in this encounter Additional Health Concerns Infection Onset Date Last Indicated Resolved Time COVID19 Pending 09/30/2021 09/30/2021 09/30/2021 11:06 AM HEALTH CARE CONSULTANT COVID19 Pending 10/03/2021 10/03/2021 10/23/2021 6:10 AM HEALTH CARE CONSULTANT Assessment Noted Time PHQ-9 Depression Total Score: 18 02/14/2013 9:53 AM CD T documented as of this encounter Care Teams Director Electrical Engineering Relationship Specialty Start Date End Date Cintia Cobb M.D. PCP - General 02/19/17 02/20/[address] [place] [phone] documented as of this encounter
--- OUTSIDE RECORDS SUMMARY | 2022-08-19 10:23 | XMS_ITS | Encounter Summary ---
:1960 Author Organization [facility] Address [address] [place] [address] Care Team Providers Name Role Phone Cintia Cobb M.D. Primary Care Provider [phone] Reason for Visit Physical Therapy (Routine) - Canceled Specialty Diagnoses / Procedures Referred By Contact Refer red To Contact Diagnoses Fracture Femur Lower Multiple Closed Initial Left (HCC) Nathen Burger M.D. [facility] Procedures PT Ongoing treatment [facility] [address] [address] Referral ID Status Reason Start Date Expiration Date Visits V isits Requested Authorized [id number] Canceled 10/22/2021 10/22/2022 40 40 Encounter Details Date Type Department Care Team Description 12/13/2021 Clinical Support Department of Gustavo Burger M.D. [address] [address] Fracture Femur Rehabilitation Lesli Dias, P.T. [address] [place] [phone] Lower Multiple Services in [place] Closed In itial [place], [place] ([facility]) [address] [place] [phone] Social History Tobacco Use Types Packs/Day [...] Lower Multiple Closed Initial Left (HCC) Payor: [employer] [place] CARE / Plan: [place] BLUE PLUS HMO [...] LBP TREATMENT Treatment today consisted of: Performed??the [employer]-Fit Total body ergometer times 15??minutes at a [...] as of this encounter Care Teams Regulatory Submissions Associate Relationship Specialty Start Date End Date Cintia Cobb M.D. PCP - General 02/19/17 02/20/[address] [phone] documented as of this encounter
--- OUTSIDE RECORDS SUMMARY | 2022-08-19 10:23 | XMS_ITS | Encounter Summary ---
:1960 Author Organization [facility] Address [address] [place] [address] Care Team Providers Name Role Phone Cintia Cobb M.D. Primary Care Provider [phone] Reason for Visit Physical Therapy (Routine) - Canceled Specialty Diagnoses / Procedures Referred By Contact Refer red To Contact Diagnoses Fracture Femur Lower Multiple Closed Initial Left (HCC) Nathen Burger M.D. [facility] Procedures PT Ongoing treatment [facility] [address] [address] Referral ID Status Reason Start Date Expiration Date Visits V isits Requested Authorized [id number] Canceled 10/22/2021 10/22/2022 40 40 Encounter Details Date Type Department Care Team Description 11/21/2021 Clinical Support Department of Gustavo Burger M.D. [address] [address] Fracture Femur Rehabilitation Lesli Dias, P.T. [address] [place] [phone] Lower Multiple Services in [place] Closed In itial [place], [place] ([facility]) [address] [place] [phone] Social History Tobacco Use Types Packs/Day [...] Lower Multiple Closed Initial Left (HCC) Payor: [employer] [facility] CARE / Plan: [facility] BLUE PLUS HMO / [...] documented as of this encounter Care Teams Lpc Relationship Specialty Start Date End Date Cintia Cobb M.D. PCP - General 02/19/17 02/20/[address] [place] [phone] documented as of this encounter
--- OUTSIDE RECORDS SUMMARY | 2022-08-19 10:23 | XMS_ITS | Encounter Summary ---
:1960 Author Organization [facility] Address [address] [place] [address] Care Team Providers Name Role Phone Cintia Cobb M.D. Primary Care Provider [phone] Reason for Visit Reason Comments Quality D5 Encounter Details Date Type Department Care Team Description 12/06/2021 Clinical Communication Department [facility] D5 Medicine, Jose Daniel Piper M.D. [address] [address] [place], [place] [phone] (Work) [phone] Social History Tobacco Use Types Packs/Day Years [...] as of this encounter Care Teams Fruit Shipper Relationship Specialty Start Date End Date Cintia Cobb M.D. PCP - General 02/19/17 02/20/[address] [place] [phone] documented as of this encounter
--- OUTSIDE RECORDS SUMMARY | 2022-08-19 10:23 | XMS_ITS | Encounter Summary ---
:1960 Author Organization [facility] Address [address] [place] [address] Care Team Providers Name Role Phone Cintia Cobb M.D. Primary Care Provider [phone] Encounter Details Date Type Department Care Team Description 01/01/2022 Clinical Communication Department of [facility], Jose Daniel Piper M.D. [address] [address] [place], [place] [phone] (Work) [phone] Social History Tobacco Use Types Packs/Day Years [...] Date/Date of Appointment: 01/27/22 Location of Appointment/Surgery: [facility] Provider name or Department: Cesar Scherer MD, [facility] Address: [address] [place] [address] documented in this encounter Plan of Treatment Not on filedocumented as of this encounter Visit Diagnoses Not on filedocumented in this encounter Additional Health Concerns Assessment Noted Time PHQ-9 Depression Total Score: 18 02/14/2013 9:53 AM CD T documented as of this encounter Care Teams Straddle Bug Relationship Specialty Start Date End Date Cintia Cobb M.D. PCP - General 02/19/17 02/20/[phone] [place] [phone] documented as of this encounter
--- OUTSIDE RECORDS SUMMARY | 2022-08-19 10:23 | XMS_ITS | Encounter Summary ---
:1960 Author Organization [facility] Address [address] [place] [address] Care Team Providers Name Role Phone Cintia Cobb M.D. Primary Care Provider [phone] Reason for Referral Outpatient (Routine) - Authorized Specialty Diagnoses / Procedures Referred By Contact Refer red To Contact Family Medicine Cintia Cobb SE, M.D. [address] [place] [phone] Referral ID Status Reason Start Date Expiration Date Visits V isits Requested Authorized [id number] Authorized 01/01/2022 01/01/2023 1 1 utpatient (Routine) - Authorized Specialty Diagnoses / Procedures Referred By Contact Fatuma almodovar To Contact Diagnoses Preoperative Exam Cintia Cobb SE Procedures ECG 12 Lead Keely Piper [address] [place] [phone] Referral ID Status Reason Start Date Expiration Date Visits V isits Requested Authorized [id number] Authorized 12/31/2021 12/31/2022 1 1 Reason for Visit Reason Comments Follow-up D5 Outpatient (Routine) - Closed Specialty Diagnoses / Procedures Referred By Contact Refer red To Contact Family Medicine [facility] DREW Piper M.D. [address] [place] [address] D[place]W [place] [phone] Referral ID Status Reason Start Date Expiration Date Visits Requ ested Visits Authorized [id number] Closed 08/13/2021 08/13/2022 1 1 Encounter Details Date Type Department Care Team Description 12/31/2021 Office Visit Department of Family Tigist Cobb reoperative Exam (Primary Dx); Medicine, Jose Daniel Piper M.D. 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; [facility], in [address] [place] [address] Diabetes Mellitus Type 2 With Diabetic Neuropathy (HCC); [facility] Gastric Bypass Status Post; [place] Jose Daniel Daen [place] Anemia Microcytic; [address] [place] [phone] Wound Lower Leg Open Initial Right; DREW CONDON [phone] Flutter Atr ial (HCC); [phone] (Work) Pacemaker Cardiac Status Post; [phone] Benign Pr ostatic Hyperplasia Without Obstruction; Screening [facility] Prostate Cancer Social History Tobacco Use Types [...] will be undergoing a spine surgery with [facility], Dr. Cesar Scherer at [facility] in [facility] on January 27. He has never [...] been seeing the wound care nurse at [facility] and states that this has been [...] working with the wound care clinic through [facility]. There has been significant improvement in his wound. Hopefully it will be healed by the time of surgery. They do state that there were some vascular abnormalities, potentially varicose veins, on ultrasound for which he has beenreferred to the [facility]. #7 Flutter Atrial (HCC) #8 Pacemaker Cardiac [...] Name Type Priority Associated Diagnoses Order S [facility] Basic Metabolic Panel Lab Routine Preoperative Exam E xpected: 12/31/2021, Expires: 2022 Hemoglobin A1c Lab Routine Diabetes Mellitus Type 2 E xpected: 07/03/2022 With Diabetic Neuropathy (Ap proximate), (HCC) Expires: 2022 Hemoglobin Lab Routine Anemia Microcytic Expected: 07/03/2022 (Approximate), Expires: 2022 Scheduled Referrals Name Type Priority Associated Diagnoses Order S [facility] Family Medicine Outpatient Referral Routine Expec [...] M.D. LAB BLOOD ADD-ON Performing Organization Address City/State/[facility] Code Phon e Number [address] [address] [place] [address] System [address] Lipid Panel (12/31/2021 7:28 PM CDT) [...] M.D. LAB BLOOD ADD-ON Performing Organization Address City/[facility]/ZIP Code Phon e Number [facility]- [address] [place] [address] [place] [address] [place] [address] System in [place] [address] Bl PSA (Prostate-Specific Antigen) Screen (12/31/2021 7:28 PM CDT) athologist Signature Prostate-Specif 0.92 <=4.5 ng/mL 01/01/2022 RDW ic Ag 1:39 PM CDT Comment: ----ADDITIONAL INFORMATION---- The testing method is an electrochemilum inescence assay manufactured by [employer] and performed on the Modular [...] Address City/State/ZIP Code Phon e Number [facility]- [address] [place], [place] [address] [facility] R[facility] [place] [address] System in [place] [address] (ABNORMAL) CBC without Differential [...] Organization Address City/State/ZIP Code Phon e Number [address] [address] [place] [address] System in [address] ECG 12 Lead (12/31/2021 7:16 PM CDT) P athologist Signature Ventricular Rate 81 BPM MUSE ECG/Min [place] Interval 172 ms MUSE QRSD Interval 172 ms MUSE QT Interval 400 ms MUSE QTC Interval 465 ms MUSE P [place] 37 degrees MUSE R [place] 269 degrees MUSE T Wave [place] 83 degrees MUSE Specimen Anatomical Collection Method [...] that is no t available. Procedure Note aKiser Skaggs Jr., M.D. - 12/31/2021For matting of [...] documented as of this encounter Care Teams First Beater Relationship Specialty Start Date End Date Cintia Cobb M.D. PCP - General 02/19/17 02/20/[address] [place] [phone] documented as of this encounter
--- OUTSIDE RECORDS SUMMARY | 2022-08-19 10:23 | XMS_ITS | Encounter Summary ---
:1960 Author Organization [facility] Address [address] [place] [address] Care Team Providers Name Role Phone Cintia Cobb M.D. Primary Care Provider [phone] Reason for Visit Physical Therapy (Routine) - Canceled Specialty Diagnoses / Procedures Referred By Contact Refer red To Contact Diagnoses Fracture Femur Lower Multiple Closed Initial Left (HCC) Nathen Burger M.D. [facility] Procedures PT Ongoing treatment [facility]0 [address] [address] Referral ID Status Reason Start Date Expiration Date Visits V isits Requested Authorized [id number] Canceled 10/22/2021 10/22/2022 40 40 Encounter Details Date Type Department Care Team Description 11/04/2021 Clinical Support Department of Gustavo Burger M.D. [address] [address] Fracture Femur Rehabilitation Lesli Dias, P.T. [address] [place] [phone] Lower Multiple Services in [place] Closed In itial [place], [place] ([facility]) [address] [place] [phone] Social History Tobacco Use Types Packs/Day [...] Lower Multiple Closed Initial Left (HCC) Payor: [employer] [facility] CARE / Plan: [facility] [...] min Total Treatment Time (min): 30 min ULT BOAT [place] documented in this encounter Plan of Treatment Not on filedocumented as of this encounter Visit Diagnoses Diagnosis Fracture Femur Lower Multiple Closed Ini tial Left (HCC) documented in this encounter Additional Health Concerns Assessment Noted Time PHQ-9 Depression Total Score: 18 02/14/2013 9:53 AM CD T documented as of this encounter Care Teams Asset Accountant Relationship Specialty Start Date End Date Cintia Cobb M.D. PCP - General 02/19/17 02/20/[address] [place] [phone] documented as of this encounter
--- OUTSIDE RECORDS SUMMARY | 2022-08-19 10:23 | XMS_ITS | Encounter Summary ---
:1960 Author Organization [facility] Address [address] [place] [address] Care Team Providers Name Role Phone Cintia Cobb M.D. Primary Care Provider [phone] Reason for Visit Outpatient (Routine) - Closed Specialty Diagnoses / Referred By Contact Referred To Contact Procedures Physical Medicine and Diagnoses Fracture Femur Lower Multiple Closed Initial Left (HCC) Nathen Burger [facility] [address] [place] [address] Referral ID Status Reason Start Date Expiration Date Visits Requ ested Visits Authorized [id number] Closed 10/08/2021 10/08/2022 1 1 Encounter Details Date Type Department Care Team Description 10/22/2021 Comprehensive Visit Department of Ailin Burger M.D. [address] [place] [phone] Fracture Femur Rehabilitation Lesli Dias PPiliTPili [address] [phone] Lower Multiple Services in [place] Closed In [place], [place] Left (HCC) [address] [phone] Social History Tobacco Use Types [...] eval and treat Onset Date: 09/30/21 Payor: [facility] CARE / Plan: [facility] [employer] HMO / Product Type: Medicaid HMO / [employer] Visit Count: Visit count could not be [...] Procedure: ESOPHAGOGASTRODUODENOSCOPY; Surgeon: Rene Carlson M.D.; Location: [facility] ??? LAPAROSCOPIC ASSISTED - GASTRIC BYPASS N/A 11/21/2014 Laparoscopic assisted - Gastric bypass ??? OPEN REDUCTION INTERNAL FIXATION FEMUR Left 08/13/2019 Procedure: OPEN REDUCTION INTERNAL FIXATION LEFT FEMUR; Surgeon: John Norman M.D.; Location:[facility] OR ??? OTHER CONVERTED SHX [...] for assessment. Home Exercise Program/Education: Access Code: [email or web address] URL: [email or web address] Date: 10/22/2021 Prepared by: Lesli Dias Exercises [...] Calculation Total Treatment Time (min): 45 min C VIDEO PRODUCER documented in this encounter Plan of Treatment Not on filedocumented as of this encounter Visit Diagnoses Diagnosis Fracture Femur Lower Multiple Closed Ini tial Left (HCC) documented in this encounter Additional Health Concerns Infection Onset Date Last Indicated Resolved Time COVID19 Pending 10/03/2021 10/03/2021 10/23/2021 6:10 AM MUSIC VIDEO PRODUCER Assessment Noted Time PHQ-9 Depression Total Score: 18 02/14/2013 9:53 AM CD T documented as of this encounter Care Teams Boarding Kennel Or Cattery Operator Relationship Specialty Start Date End Date Cintia Cobb M.D. PCP - General 02/19/17 02/20/[address] [phone] documented as of this encounter
--- OUTSIDE RECORDS SUMMARY | 2022-08-19 10:23 | XMS_ITS | Encounter Summary ---
:1960 Author Organization [facility] Address [address] [place] [address] Care Team Providers Name Role Phone Cintia Cobb M.D. Primary Care Provider Reason for Referral Outpatient (Routine) - Authorized Specialty Diagnoses / Procedures Referred By Contact Refer red To Contact Diagnoses Wound Lower Leg Open Initial Right Diabetes Mellitus Type 2 Peripheral Neuropathy (HCC) Cintia Cobb Referring S, M.D. Provider [address] [place] [phone] Referral ID Status Reason Start Expiration Visits Visits Date Date Requested Authorized [id number] Authorized Patient 12/05/2021 12/05/2022 1 1 Preference Reason for Visit Reason Comments Wound referral Encounter Details Date Type Department Care Team Description 12/03/2021 Clinical Communication [facility] [place] [facility], in [address] [address] [place], [place] [phone] (Work) [phone] Social History Tobacco Use Types Packs/Day Years [...] willing to have a referral placed to [facility] but is on sure if they will [...] within their system for pt would be [facility] location: Located in: [facility] Address: [address] [place] [address] Telephone Encounter - Cintia Cobb M.D. - 12/03/2021 8:30 PM CDT Patient has a wound and we need to refer him to a vascular Medicine/slot service specialist. Can we please call the [facility] to determine the closest clinic that [...] documented as of this encounter Care Teams Bore Mill Operator For Plastic Relationship Specialty Start Date End Date Cintia Cobb M.D. PCP - General 02/19/17 02/20/[address] [place] [phone] documented as of this encounter
--- OUTSIDE RECORDS SUMMARY | 2022-08-19 10:23 | XMS_ITS | Encounter Summary ---
:1960 Author Organization [facility] Address [address] [place] [address] Care Team Providers Name Role Phone Cintia Cobb M.D. Primary Care Provider [phone] Reason for Visit Physical Therapy (Routine) - Canceled Specialty Diagnoses / Procedures Referred By Contact Refer red To Contact Diagnoses Fracture Femur Lower Multiple Closed Initial Left (HCC) Nathen Burger M.D. [facility] Procedures PT Ongoing treatment [facility] [address] [address] Referral ID Status Reason Start Date Expiration Date Visits V isits Requested Authorized [id number] Canceled 10/22/2021 10/22/2022 40 40 Encounter Details Date Type Department Care Team Description 12/10/2021 Clinical Support Department of Gustavo Burger M.D. [address] [address] Fracture Femur Rehabilitation Lesli Dias, P.T. [address] [place] [phone] Lower Multiple Services in [place] Closed In itial [place], [place] ([facility]) [address] [place] [phone] Social History Tobacco Use Types Packs/Day [...] Lower Multiple Closed Initial Left (HCC) Payor: [employer] [facility] CARE / Plan: [place] BLUE PLUS [...] pain TREATMENT Treatment today consisted of: Performed??the StylePuzzle-Fit Total body ergometer times 15??minutes at a [...] documented as of this encounter Care Teams Pig Farm Manager Relationship Specialty Start Date End Date Cintia Cobb M.D. PCP - General 02/19/17 02/20/[address] [address] documented as of this encounter
--- OUTSIDE RECORDS SUMMARY | 2022-08-19 10:23 | XMS_ITS | Encounter Summary ---
:1960 Author Organization [facility] Address [address] [place] [address] Care Team Providers Name Role Phone Cintia Cobb M.D. Primary Care Provider [phone] Reason for Visit Physical Therapy (Routine) - Canceled Specialty Diagnoses / Procedures Referred By Contact Refer red To Contact Diagnoses Fracture Femur Lower Multiple Closed Initial Left (HCC) Nathen Burger M.D. [facility] Procedures PT Ongoing treatment [facility] [address] [address] Referral ID Status Reason Start Date Expiration Date Visits V isits Requested Authorized [id number] Canceled 10/22/2021 10/22/2022 40 40 Encounter Details Date Type Department Care Team Description 11/28/2021 Clinical Support Department of Gustavo Burger M.D. [address] [address] Fracture Femur Rehabilitation Lesli Dias P.T. [address] [place] [phone] Lower Multiple Services in [place] Closed In itial [place], [place] ([facility]) [address] [place] [phone] Social History Tobacco Use Types Packs/Day [...] Lower Multiple Closed Initial Left (HCC) Payor: [employer] [place] CARE / Plan: [facility] [...] TREATMENT Treatment today consisted of: Performed the [employer] Total body ergometer times 16??minutes at a [...] documented as of this encounter Care Teams Full Time Staff Interpreter Relationship Specialty Start Date End Date Cintia Cobb M.D. PCP - General 02/19/17 02/20/[address] [place] [phone] documented as of this encounter
--- OUTSIDE RECORDS SUMMARY | 2022-08-19 10:23 | XMS_ITS | Encounter Summary ---
:1960 Author Organization [facility] Address [address] [place] [address] Care Team Providers Name Role Phone Cintia Cobb M.D. Primary Care Provider [phone] Reason for Visit Physical Therapy (Routine) - Canceled Specialty Diagnoses / Procedures Referred By Contact Refer red To Contact Diagnoses Fracture Femur Lower Multiple Closed Initial Left (HCC) Nathen Burger M.D. [facility] Procedures PT Ongoing treatment [facility] [address] [address] Referral ID Status Reason Start Date Expiration Date Visits V isits Requested Authorized [id number] Canceled 10/22/2021 10/22/2022 40 40 Encounter Details Date Type Department Care Team Description 12/05/2021 Clinical Support Department of Gustavo Burger M.D. [address] [address] Fracture Femur Rehabilitation Lesli Dias, P.T. [address] [place] [phone] Lower Multiple Services in [place] Closed In itial [place], [place] ([facility]) [address] [place] [phone] Social History Tobacco Use Types Packs/Day [...] Lower Multiple Closed Initial Left (HCC) Payor: [employer] [facility] CARE / Plan: [facility] BLUE PLUS HMO / [...] pain TREATMENT Treatment today consisted of: Performed??the [employer] Component-Fit Total body ergometer times 10??minutes at a [...] documented as of this encounter Care Teams Quiller Tender Relationship Specialty Start Date End Date Cintia Cobb M.D. PCP - General 02/19/17 02/20/[address] [phone] documented as of this encounter
--- OUTSIDE RECORDS SUMMARY | 2022-08-19 10:23 | XMS_ITS | Encounter Summary ---
:1960 Author Organization [facility] Address [address] [place] [address] Care Team Providers Name Role Phone Cintia Cobb M.D. Primary Care Provider [phone] Reason for Visit Reason Comments Supplement Question Encounter Details Date Type Department Care Team Description 11/28/2021 Clinical Department of [place] Supplement Que stion Communication Family Medicine, Cintia Copeland M.D. Clinic, in [address] [address] [place], [place] [phone] (Work) [phone] Social History Tobacco Use Types Packs/Day Years [...] I do not know anything specifically about Des Arc XL. You can certainly try it but if no improvement in whatever symptoms you are hoping it will help, I would stoptaking it. Cintia Song MD Telephone Encounter - Xochitl Hackett L.P.N. - 11/28/2021 1:57 PM CDT Ed was here for some PT this afternoon and wanted to ask your opinion, if you knew anything about a supplement called Des Arc XL. It is to be used for [...] as of this encounter Care Teams Sales Operations Relationship Specialty Start Date End Date Cintia Cobb M.D. PCP - General 02/19/17 02/20/[address] [phone] documented as of this encounter
--- OUTSIDE RECORDS SUMMARY | 2022-08-19 10:23 | XMS_ITS | Encounter Summary ---
:1960 Author Organization [facility] Address [address] [place] [address] Care Team Providers Name Role Phone Cintia Cobb M.D. Primary Care Provider [phone] Encounter Details Date Type Department Care Team [...] documented as of this encounter Care Teams Activities Aide Relationship Specialty Start Date End Date Cintia Cobb M.D. PCP - General 02/19/17 02/20/[address] [address] documented as of this encounter
--- OUTSIDE RECORDS SUMMARY | 2022-08-19 10:23 | XMS_ITS | Encounter Summary ---
:1960 Author Organization [facility] Address [address] [place] [address] Care Team Providers Name Role Phone Cintia Cobb M.D. Primary Care Provider [phone] Reason for Visit Physical Therapy (Routine) - Canceled Specialty Diagnoses / Procedures Referred By Contact Refer red To Contact Diagnoses Fracture Femur Lower Multiple Closed Initial Left (HCC) Nathen Burger M.D. [facility] Procedures PT Ongoing treatment [facility] [address] [address] Referral ID Status Reason Start Date Expiration Date Visits V isits Requested Authorized [id number] Canceled 10/22/2021 10/22/2022 40 40 Encounter Details Date Type Department Care Team Description 10/25/2021 Clinical Support Department of Gustavo Burger M.D. [address] [address] Fracture Femur Rehabilitation Lesli Dias, P.T. [address] [place] [phone] Lower Multiple Services in [place] Closed In itial [place], [place] ([facility]) [address] [place] [phone] Social History Tobacco Use Types Packs/Day [...] Lower Multiple Closed Initial Left (HCC) Payor: [employer] [facility] CARE / Plan: [facility] [...] TREATMENT Treatment today consisted of: Perform the Casual Steps-Fit Total body ergometer times 10 minutes at [...] gait belt. Home Exercise Program/Education: Access Code: [email or web address] URL: [email or web address] Date: 10/22/2021 Prepared by: Lesli Dias ?? [...] min Total Treatment Time (min): 30 min OLOGY TEACHER documented in this encounter Plan of Treatment Not on filedocumented as of this encounter Visit Diagnoses Diagnosis Fracture Femur Lower Multiple Closed Ini tial Left (HCC) documented in this encounter Additional Health Concerns Assessment Noted Time PHQ-9 Depression Total Score: 18 02/14/2013 9:53 AM CD T documented as of this encounter Care Teams Diesel Service Technician Relationship Specialty Start Date End Date Cintia Cobb M.D. PCP - General 02/19/17 02/20/[address] [address] documented as of this encounter
--- OUTSIDE RECORDS SUMMARY | 2022-08-19 10:23 | XMS_ITS | Encounter Summary ---
:1960 Author Organization [facility] Address [address] [place] [address] Care Team Providers Name Role Phone Cintia Cobb M.D. Primary Care Provider [phone] Encounter Details Date Type Department Care Team Description 02/11/2022 Orders Only Department of [facility] Angélica Cobb Medicine, Jose Daniel Piper M.D. Clinic, [address] [address] [place], [place] [phone] (W ork) [phone] Social History Tobacco Use Types Packs/Day Years [...] documented as of this encounter Care Teams Flatwork Presser Relationship Specialty Start Date End Date Cintia Cobb M.D. PCP - General 02/19/17 02/20/[address] [place] [phone] documented as of this encounter
--- OUTSIDE RECORDS SUMMARY | 2022-08-19 10:23 | XMS_ITS | Encounter Summary ---
:1960 Author Organization [facility] Address [address] [place] [address] Care Team Providers Name Role Phone Cintia Cobb M.D. Primary Care Provider [phone] Reason for Visit Reason Comments ankle wound Wound on right ankle will no t healing 10 days Appointment Request (Routine) - Closed Specialty Diagnoses / Procedures Referred By Contact Refer red To Contact Family Medicine Referral ID Status Reason Start Date Expiration Date Visits Requ ested Visits Authorized [id number] Closed 12/02/2021 12/02/2022 1 1 Encounter Details Date Type Department Care Team Description 12/03/2021 Office Visit Department of [facility] Reed Cobb Lower Leg Open Initial Right (Primary Dx); Medicine, Jose Daniel Piper M.D. Diabetes Mellitus Type 2 Peripheral Neur opathy (HCC) [facility], [address] [address] [place], [place] [phone] (W ork) [phone] Social History Tobacco Use Types Packs/Day Years [...] is tender to palpation. Pictures uploaded into [employer]. ASSESSMENT / PLAN #1 Wound Lower Leg [...] Recommended the patient follow-up with a vascular senior tax specialist. We will likely pursue this through the [facility]. Wound care instructions were given to his [...] documented as of this encounter Care Teams Trade Show Specialist Relationship Specialty Start Date End Date Cintia Cobb M.D. PCP - General 02/19/17 02/20/[address] [place] [phone] documented as of this encounter
--- OUTSIDE RECORDS SUMMARY | 2022-08-19 10:23 | XMS_ITS | Encounter Summary ---
:1960 Author Organization [facility] Address [address] [place] [address] Care Team Providers Name Role Phone Cintia Cobb M.D. Primary Care Provider [phone] Reason for Visit Reason Onset Date Comments Testing For Upper Respiratory Virus Symptoms 10/03/2021 Encounter Details Date Type Department Care Team Description 10/03/2021 External Outreach Department of [facility] Nicky Franco Contact With And Medicine, [place] Mary Carmen Padilla (Suspected) Exposure Clinic, in [address] To COVID-19 (Primary [place], [place] Dx) [address] [place] [address] [place], [place] [phone] (Work) [phone] Social History Tobacco Use Types Packs/Day Years [...] Influenza, RSV, and/or Group A Strep testing. MAKING PLASTICS SHEETS SUPERVISOR documented in this encounter Plan of Treatment Not on filedocumented as of this encounter Visit Diagnoses Diagnosis Contact With And (Suspected) Exposure To COVID-19 - Primary documented in this encounter Additional Health Concerns Infection Onset Date Last Indicated Resolved Time COVID19 Pending 10/03/2021 10/03/2021 10/23/2021 6:10 AM MOLD MAKING PLASTICS SHEETS SUPERVISOR Assessment Noted Time PHQ-9 Depression Total Score: 18 02/14/2013 9:53 AM CD T documented as of this encounter Care Teams Real Estate Acquisition Analyst Relationship Specialty Start Date End Date Cintia Cobb M.D. PCP - General 02/19/17 02/20/[address] [place] [phone] documented as of this encounter
--- OUTSIDE RECORDS SUMMARY | 2022-08-19 10:23 | XMS_ITS | Encounter Summary ---
:1960 Author Organization [facility] Address [address] [place] [address] Care Team Providers Name Role Phone Cintia Cobb M.D. Primary Care Provider [phone] Reason for Visit Physical Therapy (Routine) - Canceled Specialty Diagnoses / Procedures Referred By Contact Refer red To Contact Diagnoses Fracture Femur Lower Multiple Closed Initial Left (HCC) Nathen Burger M.D. [facility] Procedures PT Ongoing treatment [facility] [address] [address] Referral ID Status Reason Start Date Expiration Date Visits V isits Requested Authorized [id number] Canceled 10/22/2021 10/22/2022 40 40 Encounter Details Date Type Department Care Team Description 12/12/2021 Clinical Support Department of Gustavo Burger M.D. [address] [address] Fracture Femur Rehabilitation Lesli Dias, P.T. [address] [place] [phone] Lower Multiple Services in [place] Closed In itial [place], [place] ([facility]) [address] [place] [phone] Social History Tobacco Use Types Packs/Day [...] Lower Multiple Closed Initial Left (HCC) Payor: [employer] [facility] CARE / Plan: [employer] BLUE PLUS [...] today. TREATMENT Treatment today consisted of: Performed??the [employer]-Fit Total body ergometer times 15??minutes at a [...] as of this encounter Care Teams Human Capital Manager Relationship Specialty Start Date End Date Cintia Cobb M.D. PCP - General 02/19/17 02/20/[address] [phone] documented as of this encounter
--- OUTSIDE RECORDS SUMMARY | 2022-08-19 10:23 | XMS_ITS | Encounter Summary ---
:1960 Author Organization [facility] Address [address] [place] [address] Care Team Providers Name Role Phone Cintia Cobb M.D. Primary Care Provider [phone] Reason for Visit Physical Therapy (Routine) - Canceled Specialty Diagnoses / Procedures Referred By Contact Refer red To Contact Diagnoses Fracture Femur Lower Multiple Closed Initial [facility] ([facility]) Nathen Burger M.D. [facility] Procedures PT Ongoing treatment [facility] [address] [address] Referral ID Status Reason Start Date Expiration Date Visits V isits Requested Authorized [id number] Canceled 10/22/2021 10/22/2022 40 40 Encounter Details Date Type Department Care Team Description 12/04/2021 Clinical Support Department of Gustavo Burger M.D. [address] [address] Fracture Femur Rehabilitation Emelia Acosta, P.TPili Lower Multiple Services in [facility] In [place], [place] ([facility]) [address] [place] [phone] Social History Tobacco Use Types Packs/Day Years [...] Lower Multiple Closed Initial Left (HCC) Payor: [employer] [place] CARE / Plan: [place] BLUE PLUS [...] and has additional questions pertaining to discussed [place] that was not provided to him. Contact [...] documented as of this encounter Care Teams Licensed Clinical Social Worker Relationship Specialty Start Date End Date Cintia Cobb M.D. PCP - General 02/19/17 02/20/[address] [phone] documented as of this encounter
--- OUTSIDE RECORDS SUMMARY | 2022-08-19 10:24 | XMS_ITS | Encounter Summary ---
:[address] [facility] Address [address] [place] [address] Care Team Providers Name Role Phone Cintia Cobb M.D. Primary Care Provider [phone] Reason for Visit Reason Comments Chest Wall Pain 61 year old male admits with concerns of right rib pain. Pt states he was working on his truck and was leaning on a piece of the truck and it has hurt ever since Encounter Details Date Type Department Care Team Description 07/27/2021 Emergency [place] [facility] Joaquín Grayson, Elvi Chest Wall Department P.A.-C. 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 - 07/27/2021 1:10 PM MUNICIPAL MAINTENANCE WORKER Come back if needed CIPAL MAINTENANCE WORKER AttachmentsThe following attachments cannot be sent through Care Everywhere. Chest Wall Pain (Korean)documented in this encounter Medications at Time of [...] daily. 1 each 1 each 0 2019 [facility] daily. Dx: E11.9. Brand per insurance coverage. [...] pneumothorax. I gave him a prescription for [place] to use for more severe pain. He will follow-up in clinic as needed. DIFFERENTIAL DIAGNOSIS Rib fracture, muscle strain, pneumothorax, costochondritis I personally reviewed the radiology image(s). The Radiology exam interpretation(s) is/are normal. Final Diagnoses: as of 07/27/21 1316 Pain Chest Wall Joaquín Garyson P.A.-C. 07/27/21 1316 CIPAL MAINTENANCE WORKER documented in this encounter Plan of Treatment Not on filedocumented as of this encounter Procedures Procedure Name Priority Date/Time Associated Comments Diagnosis DX RIBS RIGHT 2 VIEWS RAD - Routine 07/27/2021 Resul ts for WITH CHEST (most inpatients 12:42 PM MUNICIPAL MAINTENANCE WORKER this proced ure POSTEROANTERIOR 1 VIEW and all are i n the outpatients) results section. documented in this encounter Results DX Ribs Right 2 Views with Chest Posteroanterior 1 View (07/27/2021 12:42 PM MUNICIPAL MAINTENANCE WORKER) Anatomical Region Laterality Modality Ribs, Chest, Musculoskeletal RST LOS, Musculoskeletal Right Digital Radiography ARZ LOS, Muskuloskeletal FLA LOS Specimen (Source) Anatomical Collection Method Collection Time Re ceived Time Location / / Volume Laterality 07/27/2021 1:25 PM MUNICIPAL MAINTENANCE WORKER Impressions 07/27/2021 1:26 PM MUNICIPAL MAINTENANCE WORKER No acute appreciable rib fracture. No acute radiographic abnormality. Narrative 07/27/2021 1:26 PM MUNICIPAL MAINTENANCE WORKER EXAM: DX RIBS RIGHT 2 VIEWS WITH CHEST POSTEROANTERIOR 1 VIEW COMPARISON: 01/20/2017 FINDINGS: Patient's jewelry projects ove r the upper lungs, limiting evaluation. Dual lead left chest cardiac device. Car diac silhouette is within normal limits. Pulmonary vasculature is distinct. No ac cantwell consolidation, pleural effusion, or pneumothorax. No acute appreciable rib f racture. Procedure Note Jaaml Montenegro M.D. - 07/27/2021Formattin g of this note might be different from the original. EXAM: DX RIBS RIGHT 2 VIEWS WITH CHEST P OSTEROANTERIOR 1 VIEW COMPARISON: 01/20/2017 FINDINGS: Patient's jewelry projects ove r the upper lungs, limiting evaluation. Dual lead left chest cardiac device. Car diac silhouette is within normal limits. Pulmonary vasculature is distinct. No ac cantwell consolidation, pleural effusion, or pneumothorax. No acute appreciable rib f racture. IMPRESSION: No acute appreciable rib fracture. No ac cantwell radiographic abnormality. Joaquín Grayson P.A.-C. [facility] PROCE DURES documented in this encounter Visit Diagnoses Diagnosis Pain Chest Wall - Primary documented in this encounter Additional Health Concerns Assessment Noted Time PHQ-9 Depression Total Score: 18 02/14/2013 9:53 AM CD T documented as of this encounter Care Teams Fish And Wildlife Warden Relationship Specialty Start Date End Date Cintia Cobb M.D. PCP - General 02/19/17 02/20/[address] [place] [phone] documented as of this encounter
--- OUTSIDE RECORDS SUMMARY | 2022-08-19 10:24 | XMS_ITS | Encounter Summary ---
:1960 Author Organization [facility] Address [address] [place] [address] Care Team Providers Name Role Phone Cintia Cobb M.D. Primary Care Provider [phone] Encounter Details Date Type Department Care Team Description 07/30/2021 Clinical Communication Department of [facility] Medicine, Jose Daniel Piper M.D. [address] [address] [place], [place] [phone] (Work) [phone] Social History Tobacco Use Types Packs/Day Years Used Date Smoking Tobacco: Never Smokeless Tobacco: Never Alcohol Use Standard Drinks/Week Comments No 0 (1 standard drink = 0.6 oz pure alcoho l) Sex Assigned at Date Recorded Not on file documented as of this encounter Miscellaneous Notes Telephone Encounter - Cintia Cobb M.D. - 08/05/2021 11:38 AM DETAIL SERGEANT Noted. Will discuss at upcoming appointment. [place] SERGEANT Telephone Encounter - Iliana Campos L.P.N. - 07/30/2021 10:21 AM CST Notes below from head start director as an FY from 07/28/21I: FYI I wanted PCP and Nurse Team to know. Patient is taking prescriptions inappropriately and could result in terrible side effects. All follow up related to this message will need to be done by the primary provider's nursing team. ??Please have your local nursing staff follow up with patient directly. ??Patient blocked [facility] from calling so unable to reach patient. Routing comment Patient calling to see why he shouldn't mix Cameron with Tylenol and alcohol. Nurse continued to explain but patient refused recommendations. Stated he's going to continue to do what he's been doing andtake all 6 pain pills with half a bottle of Tylenol and wash it down with [place], all at the same time. ?? This could be life threatening and result in an overdose. Patient refused head start director recommendation. Note sent to PCP team. Unable to contact patient due to him blocking [facility]. IL SERGEANT documented in this encounter Plan of Treatment Not on filedocumented as of this encounter Visit Diagnoses Not on filedocumented in this encounter Additional Health Concerns Assessment Noted Time PHQ-9 Depression Total Score: 18 02/14/2013 9:53 AM CD T documented as of this encounter Care Teams Senior Case Manager Relationship Specialty Start Date End Date Cintia Cobb M.D. PCP - General 02/19/17 02/20/[id number] [address] documented as of this encounter
--- OUTSIDE RECORDS SUMMARY | 2022-08-19 10:24 | XMS_ITS | Encounter Summary ---
:1960 Author Organization [facility] Address [address] [place] [address] Care Team Providers Name Role Phone Cintia Cobb M.D. Primary Care Provider [phone] Encounter Details Date Type Department Care Team Description 07/14/2021 Clinical Communication Department of [facility] Medicine, Jose Daniel Piper M.D. [address] [address] [place], [place] [phone] (Work) [phone] Social History Tobacco Use Types Packs/Day Years Used Date Smoking Tobacco: Never Smokeless Tobacco: Never Alcohol Use Standard Drinks/Week Comments No 0 (1 standard drink = 0.6 oz pure alcoho l) Sex Assigned at Date Recorded Not on file documented as of this encounter Miscellaneous Notes Telephone Encounter - Cintia Cobb M.D. - 07/14/2021 6:04 PM SEISMIC PLOTTER Received this message from patient via email: [...] adjust the dose. Thanks, Cintia Song MD MIC PLOTTER documented in this encounter Plan of Treatment Not on filedocumented as of this encounter Visit Diagnoses Not on filedocumented in this encounter Additional Health Concerns Assessment Noted Time PHQ-9 Depression Total Score: 18 02/14/2013 9:53 AM CD T documented as of this encounter Care Teams Systems Mechanic Relationship Specialty Start Date End Date Cintia Cobb M.D. PCP - General 02/19/17 02/20/[address] [address] documented as of this encounter
--- OUTSIDE RECORDS SUMMARY | 2022-08-19 10:24 | XMS_ITS | Encounter Summary ---
:1960 Author Organization [facility] Address [address] [place] [address] Care Team Providers Name Role Phone Cintia Cobb M.D. Primary Care Provider [phone] Reason for Visit Reason Comments Triage Encounter Details Date Type Department Care Team Description 07/25/2021 Nurse Triage Department of [facility] Drkae Gilbert RAugustine Triage Medicine, [place] [address] [facility], in [facility] [address] [place] [address] [place] [phone] Social History Tobacco Use Types Packs/Day [...] next 24 hours. Call your doctor (or CARD CUTTER HELPER/PA) when the office opens and make an [...] acetaminophen, ibuprofen, or naproxen. * They are uhfi-exc-zegfopk (OTC) pain drugs. You can buy them [...] AND [2] still hurts Protocols used: CHEST [id number] T CROSSING GUARD documented in this encounter Plan of Treatment Not on filedocumented as of this encounter Visit Diagnoses Not on filedocumented in this encounter Additional Health Concerns Assessment Noted Time PHQ-9 Depression Total Score: 18 02/14/2013 9:53 AM CD T documented as of this encounter Care Teams Engineer Rf Deployment Relationship Specialty Start Date End Date Cintia Cobb M.D. PCP - General 02/19/17 02/20/[id number] [address] documented as of this encounter
--- OUTSIDE RECORDS SUMMARY | 2022-08-19 10:24 | XMS_ITS | Encounter Summary ---
:1960 Author Organization [facility] Address [address] [place] [address] Care Team Providers Name Role Phone Cintia Cobb M.D. Primary Care Provider [phone] Reason for Referral Outpatient (Routine) - Closed Specialty Diagnoses / Procedures Referred By Contact Refer red To Contact Family Medicine Cintia Cobb DREW Piper M.D. [address] [place] [phone] Referral ID Status Reason Start Date Expiration Date Visits Requ ested Visits Authorized [id number] Closed 08/13/2021 08/13/2022 1 1 EMIC PROGRAM SPECIALIST Reason for Visit Reason Comments Weight Gain due to gabapentin. 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 Diabetes Mellitus Type 2 Peripheral Neur opathy (HCC); [facility], in [address] [place] [address] Hyperten mikey Essential Primary; [facility] Flutter Atrial (HCC); [place] DREW Condon Anemia Microcytic; [address] [place] [address] [address] Gastric Bypass Status Post; DREW CONDON [phone] Benign Pros tatic Hyperplasia Without Obstruction; [phone] (Work) Screening Examination Prostate Cancer; [phone] Pain Low Back Unspecified Social History Tobacco [...] Comments Blood Pressure 127/82 08/13/2021 7:21 PM ACADEMIC PROGRAM SPECIALIST Pulse 78 08/13/2021 7:21 PM ACADEMIC PROGRAM SPECIALIST Temperature - - Respiratory Rate 20 08/13/2021 6:30 PM ACADEMIC PROGRAM SPECIALIST Oxygen Saturation 98% 08/13/2021 6:30 PM ACADEMIC PROGRAM SPECIALIST Inhaled Oxygen Concentration - - Weight - [...] in no acute distress. Cintia Copeland MD EMIC PROGRAM SPECIALIST documented in this encounter Plan of Treatment Scheduled Orders Name Type Priority Associated Diagnoses Order [facility] Creatinine with Lab Routine Hypertension Essential Ex [...] is an electrochemilum inescence assay manufactured by [employer] and performed on the Modular [...] Address City/State/ZIP Code Phon e Number [facility]- [address] [place] [phone] [facility] [place] [address] System in [address] Lipid Panel (12/31/2021 7:28 PM CDT) [...] M.D. LAB BLOOD ADD-ON Performing Organization Address [facility] Phon e Number [address] [address] [place] [address] System in [place] [address] [address] Hemoglobin A1c (12/31/2021 7:28 PM CDT) P athologist Signature Hemoglobin A1c, 5.4 4.2 - 5.6 12/31/2021 CNFL B % 7:48 PM CDT Specimen Anatomical Collection Method Collection Time Receive d Time (Source) Location / / Volume Laterality Blood (Blood, 12/31/2021 7:28 PM 01/01/20 22 7:32 Venous) CDT PM CDT Cintia Copeland M.D. LAB BLOOD ADD-ON Performing Organization Address [facility] Phon e Number [address] [address] [place] [address] System [address] (ABNORMAL) CBC without Differential (12/31/2021 7:22 [...] Address City/State/ZIP Code Phon e Number [facility]- [address] [place] [address] [place] [address] System in [address] documented in this encounter Visit Diagnoses [...] documented as of this encounter Care Teams Photocopying Machine Operator Relationship Specialty Start Date End Date Cintia Cobb M.D. PCP - General 02/19/17 02/20/[address] [place] [phone] documented as of this encounter
--- OUTSIDE RECORDS SUMMARY | 2022-08-19 10:24 | XMS_ITS | Encounter Summary ---
:1960 Author Organization [facility] Address [address] [place] [address] Care Team Providers Name Role Phone Cintia Cobb M.D. Primary Care Provider [phone] Reason for Visit Reason Comments Fall Left knee pain from fall at home Encounter Details Date Type Department Care Team Description 09/30/2021 Emergency [place] Noe Linares, History Of Falling (Primary Dx); Emergency Department P.A.-C. Fracture Lower End Femur Supracondylar W ith Intracondylar Extension Displaced Closed Initial Left (HCC) [address] [place] [address] [address] [place] [address] [phone] (Wo rk) Social History Tobacco Use Types Packs/Day Years Used Date Smoking Tobacco: Never Smokeless Tobacco: Never Alcohol Use Standard Drinks/Week Comments No 0 (1 standard drink = 0.6 oz pure alcoho l) Sex Assigned at Date Recorded Not on file documented as of this encounter Last Filed Vital Signs Vital Sign Reading Time Taken Comments Blood Pressure 143/88 09/30/2021 4:15 PM YOUTH ADVOCATE Pulse 79 09/30/2021 4:25 PM YOUTH ADVOCATE Temperature 36.7 ??C (98.1 ??F) 09/30/2021 8:30 AM YOUTH ADVOCATE Respiratory Rate 18 09/30/2021 8:30 AM YOUTH ADVOCATE Oxygen Saturation 98% 09/30/2021 4:25 PM YOUTH ADVOCATE Inhaled Oxygen Concentration - - Weight 81 kg (178 lb 9.2 oz) 09/30/2021 8:25 AM YOUTH ADVOCATE Height - - Body Mass Index 24.22 08/12/2019 12:43 PM YOUTH ADVOCATE documented in this encounter Medications at Time [...] (two) times a day. calcium) chewable tablet furosemide (LASIX) 40 TAKE ONE TABLET BY [...] 03/202108/13/2022 mg tablet total) by mouth daily. omeprazole (PriLOSEC) Take 1 capsule (20 90 [...] with ATC who spoke to Dr Mccoy, conference center coordinator for ortho/trauma, requested we obtain surgical prescreening [...] Left (HCC) Noe Linares P.A.-C. 10/04/21 0350 H ADVOCATE documented in this encounter Plan of Treatment Not on filedocumented as of this encounter Procedures Procedure Name Priority Date/Time Associated Comments Diagnosis TESTING LOCATION STAT 09/30/2021 1:22 Results for PM YOUTH ADVOCATE this procedure are in the results section. ECG STAT 09/30/2021 10:45 Results for AM YOUTH ADVOCATE this procedure are in the results section. CBC WITH STAT 09/30/2021 10:40 Results for DIFFERENTIAL, B AM YOUTH ADVOCATE this procedu re are in the results section. COMPREHENSIVE STAT 09/30/2021 10:40 Results fo r METABOLIC PANEL, S/P AM YOUTH ADVOCATE this pr ocedure are in the results section. SARS CORONAVIRUS 2, STAT 09/30/2021 10:36 Resu lts for PCR RAPID, V AM YOUTH ADVOCATE this procedure are in the results section. DX CHEST PORTABLE 1 RAD - Semiurgent 09/30/2021 10:22 Results for VIEW (Fast; most ED AM YOUTH ADVOCATE this procedur e patients; some are in the inpatients) results section. DX KNEE LEFT 4+ RAD - Semiurgent 09/30/2021 9:12 Resul ts for VIEWS (Fast; most ED AM YOUTH ADVOCATE this procedur e patients; some are in the inpatients) results section. documented in this encounter Results Testing Location (09/30/2021 1:22 PM YOUTH ADVOCATE) P athologist Signature Testing CANCELED 09/30/2021 CNFL Location 2:56 PM YOUTH ADVOCATE Comment: REVISED RESULTS ----PREVIOUSLY REPORTED ---- [facility], Flagged as: Normal (Reported 09/30/2021 13:22) Specimen Anatomical Collection Method Collection Time Receive d Time (Source) Location / / Volume Laterality Blood 09/30/2021 1:22 PM 2 1:22 YOUTH ADVOCATE PM YOUTH ADVOCATE Narrative [facility] - 09/30/2021 2:56 PM YOUTH ADVOCATE Testing Location was cancelled on 09/30/2021 at 14:56; Per provider's request. !CNCL! Noe Linares P.A.-C. LAB BLOOD BANK TEST ORDERABL ES Performing Organization Address City/[facility] Phon e Number [place] [address] [place] [address] [facility] [place] [place] [address] System in [address] ECG 12 Lead (09/30/2021 10:45 AM YOUTH ADVOCATE) P athologist Signature Ventricular Rate 70 BPM MUSE ECG/Min DE Interval 188 ms MUSE QRSD Interval 176 ms MUSE QT Interval 462 ms MUSE QTC Interval 498 ms MUSE R Olpe -83 degrees MUSE T Wave Olpe 79 degrees MUSE Specimen Anatomical Collection Method Collection Time Receive d Time (Source) Location / / Volume Laterality 09/30/2021 10:45 09/30/2021 AM YOUTH ADVOCATE 10:50 AM YOUTH ADVOCATE Impressions MUSE - 09/30/2021 10:50 AM YOUTH ADVOCATE Dual chamber electronic pacemaker Sinus rhythm When [...] Linares P.A.-C. ECG ORDERABLES Performing Organization Address City/[facility]/ZIP Code Phon e Number MUSE MUSE NA (ABNORMAL) Comprehensive Metabolic Panel (09/30/2021 10:40 AM YOUTH ADVOCATE) P athologist Signature Potassium, P 4.5 3.6 - 5.2 09/30/2021 CNFL mmol/L 11:22 AM YOUTH ADVOCATE Sodium, P 136 135 - 145 09/30/2021 CNFL mmol/L 11:22 AM YOUTH ADVOCATE Chloride, P 102 98 - 107 09/30/2021 CNFL mmol/L 11:22 AM YOUTH ADVOCATE Bicarbonate, P 22 22 - 29 09/30/2021 CNFL mmol/L 11:22 AM YOUTH ADVOCATE Anion Gap, P 12 7 - 15 09/30/2021 CNFL 11:22 AM YOUTH ADVOCATE BUN (Blood Urea 29 (H) 8 - 24 09/30/2021 CNFL Nitrogen), P mg/dL 11:22 AM YOUTH ADVOCATE Creatinine 0.91 0.74 - 09/30/2021 CNFL 1.35 mg/dL 11:22 AM YOUTH ADVOCATE eGFR-Black/Afri >90 >=60 09/30/2021 CNFL can Maltese mL/min/BSA 11:22 AM YOUTH ADVOCATE Comment: ----ADDITIONAL INFORMATION---- Estimated GFR calculated using the 2009 CKD_EPI creatinine equation. eGFR Non-Black/ 89 >=60 mL/min/BSA 09/30/2021 11:22 AM YOUTH ADVOCATE CNFL Comment: ----ADDITIONAL INFORMATION---- Estimated GFR calculated using the 2009 CKD_EPI creatinine equation. Calcium, Total, P 8.9 8.8 - 10.2 mg/dL 09/30/2021 11:2 2 AM YOUTH ADVOCATE CNFL Glucose, P 114 70 - 140 mg/dL 09/30/2021 11:22 AM YOUTH ADVOCATE CNFL Protein, Total, P 6.3 6.3 - 7.9 g/dL 09/30/2021 11:22 AM YOUTH ADVOCATE CNFL Albumin, P 4.0 3.5 - 5.0 g/dL 09/30/2021 11:22 AM YOUTH ADVOCATE CNFL Aspartate Aminotransferase 15 8 - 48 U/L 09/30/2021 1 1:22 AM YOUTH ADVOCATE CNFL (AST), P Alkaline Phosphatase, P 57 40 - 129 U/L 09/30/2021 11 :22 AM YOUTH ADVOCATE CNFL Alanine Aminotransferase (ALT), 15 7 - 55 U/L 022 11:22 AM YOUTH ADVOCATE CNFL P Bilirubin, Total, P 0.2 <=1.2 mg/dL 09/30/2021 11:22 A M YOUTH ADVOCATE CNFL Specimen Anatomical Collection Method Collection Time Receive d Time (Source) Location / / Volume Laterality Blood (Blood, 09/30/2021 10:40 09/30/2021 Venous) AM YOUTH ADVOCATE 10:40 AM YOUTH ADVOCATE Noe Linares P.A.-C. LAB BLOOD ADD-ON Performing Organization Address City/State/ZIP Code Phon e Number [facility]- [address] [place] [address] [facility] [place] [address] System [address] (ABNORMAL) CBC with Differential, Blood (09/30/2021 10:40 AM YOUTH ADVOCATE) [facility] gist Method Time Signature Hemoglobin 6.5 (L) 13.2 - 09/30/2021 CNFL 16.6 g/dL 11:16 AM YOUTH ADVOCATE Hematocrit 23.0 (L) 38.3 - 09/30/2021 CNFL 48.6 % 11:16 AM YOUTH ADVOCATE Erythrocytes 2.90 (L) 4.35 - 09/30/2021 CNFL 5.65 11:16 AM YOUTH ADVOCATE x10(12)/L MCV 79.3 78.2 - 09/30/2021 CNFL 97.9 fL 11:16 AM YOUTH ADVOCATE RBC Distrib Width 16.9 (H) 11.8 - 09/30/2021 CNFL 14.5 % 11:16 AM YOUTH ADVOCATE Platelet Count 178 135 - 317 09/30/2021 CNFL x10(9)/L 11:16 AM YOUTH ADVOCATE Leukocytes 6.1 3.4 - 9.6 09/30/2021 CNFL x10(9)/L 11:16 AM YOUTH ADVOCATE Neutrophils 4.77 1.56 - 09/30/2021 CNFL 6.45 11:16 AM YOUTH ADVOCATE x10(9)/L Lymphocytes 0.79 (L) 0.95 - 09/30/2021 CNFL 3.07 11:16 AM YOUTH ADVOCATE x10(9)/L Monocytes 0.40 0.26 - 09/30/2021 CNFL 0.81 11:16 AM YOUTH ADVOCATE x10(9)/L Eosinophils 0.06 0.03 - 09/30/2021 CNFL 0.48 11:16 AM YOUTH ADVOCATE x10(9)/L Basophils 0.03 0.01 - 09/30/2021 CNFL 0.08 11:16 AM YOUTH ADVOCATE x10(9)/L Specimen Anatomical Collection Method Collection Time Receive d Time (Source) Location / / Volume Laterality Blood (Blood, 09/30/2021 10:40 09/30/2021 Venous) AM YOUTH ADVOCATE 10:40 AM YOUTH ADVOCATE Noe Linares P.A.-C. LAB BLOOD ADD-ON Performing Organization Address City/[facility] Phon e Number [address] [address] [place] [address] SARS Coronavirus 2, PCR Rapid, V Symptomatic (09/30/2021 10:36 AM YOUTH ADVOCATE) [facility] Method Time Signature SARS CoV-2, Undetected Undetected 09/30/2021 [facility] PCR, Rapid, V 11:06 AM YOUTH ADVOCATE Comment: ----ADDITIONAL INFORMATION---- This RT-PCR test was performed using the Lola SARS-CoV-2 and Influenza A/B Reagent assay from [employer], which has received Emergency Use Authori zation(EUA) by the U.S. Food and Drug Administration . Fact sheets for this Emergency Use Autho rization (EUA) assay can be found at the following link s: For Healthcare Providers: https://www.fda.gov/media/806334/downloa d For Patients: https://www.fda.gov/media/069885/downloa d SARS Coronavirus 2, Source, Swab, Nasopharynx 09/08 10:40 AM YOUTH ADVOCATE FL Rapid Specimen Anatomical Collection Method Collection Time Receive d Time (Source) Location / / Volume Laterality Varies 09/30/2021 10:36 09/30/2021 (Nasopharynx) AM YOUTH ADVOCATE 10:40 AM YOUTH ADVOCATE Noe Linares P.A.-C. LAB MICROBIOLOGY - GENERAL O RDERABLES Performing Organization Address City/[facility]/ZIP Code Phon e Number [address] [address] [place] [address] System [address] DX Chest Portable 1 View (09/30/2021 10:22 AM YOUTH ADVOCATE) Anatomical Region Laterality Modality Chest, Thoracic RST LOS, Thoracic ARZ LOS, Thoracic N/A Computed Radiography FLA LOS Specimen (Source) Anatomical Collection Method Collection Time Re ceived Time Location / / Volume Laterality 09/30/2021 10:24 AM YOUTH ADVOCATE Impressions 09/30/2021 10:25 AM YOUTH ADVOCATE Comparison 07/27/21. Pacemaker. Heart size normal. Lungs are clear. Narrative 09/30/2021 10:25 AM YOUTH ADVOCATE EXAM: DX CHEST PORTABLE 1 VIEW Procedure Note Sebas Vegas M.D. - 09/30/2021 EXAM: DX CHEST PORTABLE 1 VIEW IMPRESSION: Comparison 07/27/21. Pacemaker. Heart si ze normal. Lungs are clear. Noe Linares P.A.-C. IMG DIAGNOSTIC IMAGING PROCE DURES DX Knee Left 4+ Views (09/30/2021 9:12 AM YOUTH ADVOCATE) Anatomical Region Laterality Modality Lower Extremity, Knee, Musculoskeletal RST LOS, Left Digital Radiography Musculoskeletal ARZ LOS, Muskuloskeletal FLA LOS Specimen (Source) Anatomical Collection Method Collection Time Re ceived Time Location / / Volume Laterality 09/30/2021 9:16 AM YOUTH ADVOCATE Impressions 09/30/2021 9:17 AM YOUTH ADVOCATE Comparison 04/06/20. Osteopenia. New acute fracture of distal femur diametaphysis with marked comminution, 4 cm impaction, mild medial angulation, and moderate posterior angulation. Arter ial calcifications. Narrative 09/30/2021 9:17 AM YOUTH ADVOCATE EXAM: DX KNEE LEFT 4+ VIEWS Procedure [...] tablet 1,000 mg Given 09/30/2021 12:58 PM YOUTH ADVOCATE 1,00 0 mg (TYLENOL) 1,000 mg, oral, Once, On Thu09/30/21 at 1233, For 1 dose droperidoL injection 1.875 mg (INAPSINE) Given 09/30/2021 12:58 PM YOUTH ADVOCATE 1.875 mg 1.875 mg, intravenous, Once, On Thu09/30/21 at 1233, For 1 dose HYDROmorphone injection 1 mg (DILAUDID) Given 09/30/2021 10:58 AM YOUTH ADVOCATE 1 mg 1 mg, intravenous, Once, On Thu09/30/21 at 1051, For 1 dose HYDROmorphone injection 1 mg (DILAUDID) Given 09/30/2021 11:15 AM YOUTH ADVOCATE 1 mg 1 mg, intravenous, Once, On Thu09/30/21 at 1113, For 1 dose ketorolac injection 15 mg (TORADOL) Given 09/30/2021 3:30 PM YOUTH ADVOCATE 15 mg 15 mg, intravenous, Once, On Thu09/30/21 at 1521, For 1 dose, Adult IV push rate: Over 15 seconds. Peds IV push rate: Over 1 minute. 60 mg dose only for IM, not recommended for IV. ketorolac tablet 10 mg (TORADOL) Given 09/30/2021 9:11 AM YOUTH ADVOCATE 10 mg 10 mg, oral, Once, On Thu09/30/21 at 0841, For 1 dose NaCl 0.9 % bolus 1,000 mL New Bag 09/30/2021 2:29 PM YOUTH ADVOCATE 1,000 mL 1000 mL/hr 1,000 mL, intravenous, [...] mg per tablet Given 09/08 9:11 AM YOUTH ADVOCATE 1 tablet 1 tablet (PERCOCET) 1 tablet, oral, Once, On Thu09/30/21 at 0841, For 1 dose documented in this encounter Active and Recently Administered Medications Times are shown in YOUTH ADVOCATE. Scheduled Medication Order 09/28/2021 09/29/2021 09/30/2021 acetaminophen [...] COVID19 Pending 09/30/2021 09/30/2021 09/30/2021 11:06 AM YOUTH ADVOCATE Assessment Noted Time PHQ-9 Depression Total Score: 18 02/14/2013 9:53 AM CD T documented as of this encounter Care Teams Tire Design Engineer Relationship Specialty Start Date End Date Cintia Cobb M.D. PCP - General 02/19/17 02/20/[address] [phone] documented as of this encounter
--- OUTSIDE RECORDS SUMMARY | 2022-08-19 10:24 | XMS_ITS | Encounter Summary ---
:1960 Author Organization [facility] Address [address] [place] [address] Care Team Providers Name Role Phone Cintia Cobb M.D. Primary Care Provider [phone] Reason for Visit Reason Comments Med Refill Encounter Details Date Type Department Care Team Description 09/19/2021 Refill Department of [facility] Angélica Cobb Med Refill Medicine, Jose Daniel Piper M.D. Clinic, in [address] [address] [place], [place] [address] [phone] Social History Tobacco Use Types Packs/Day Years [...] of this encounter Care Teams Director Of Federal Sales Relationship Specialty Start Date End Date Cintia Cobb M.D. PCP - General 02/19/17 02/20/[address] [place] [phone] documented as of this encounter
--- OUTSIDE RECORDS SUMMARY | 2022-08-19 10:24 | XMS_ITS | Encounter Summary ---
:1960 Author Organization [facility] Address [address] [place] [address] Care Team Providers Name Role Phone Cintia Cobb M.D. Primary Care Provider [phone] Encounter Details Date Type Department Care Team Description 09/09/2021 Orders Only Department of [facility] Angélica Cobb Medicine, Jose Daniel Piper M.D. Clinic, [address] [address] [place], [place] [phone] (W ork) [address] [phone] Social History Tobacco Use Types Packs/Day Years [...] as of this encounter Care Teams Customer Acquisition Manager Relationship Specialty Start Date End Date Cintia Cobb M.D. PCP - General 02/19/17 02/20/[address] [place] [phone] documented as of this encounter
--- OUTSIDE RECORDS SUMMARY | 2022-08-19 10:24 | XMS_ITS | Encounter Summary ---
:1960 Author Organization [facility] Address [address] [place] [address] Care Team Providers Name Role Phone Cintia Cobb M.D. Primary Care Provider [phone] Encounter Details Date Type Department Care Team Description 05/14/2021 Orders Only [facility] PCP [facility] Priyanka Cobb Mellitus Type OLEG Piper M.D. 2 With Diabetic [address] [address] Neuropathy ( HCC) [place] [address] (Wo rk) Social History Tobacco [...] documented as of this encounter Care Teams Assistant Inventory Manager Relationship Specialty Start Date End Date Cintia Cobb M.D. PCP - General 02/19/17 02/20/22 [address] [facility] [address] [place] [phone] documented as of this encounter
--- OUTSIDE RECORDS SUMMARY | 2022-08-19 10:24 | XMS_ITS | Encounter Summary ---
:1960 Author Organization [facility] Address [address] [place] [address] Care Team Providers Name Role Phone Cintia Cobb M.D. Primary Care Provider [phone] Reason for Referral Outpatient (Routine) - Closed Specialty Diagnoses / Procedures Referred By Contact Refer red To Contact Diagnoses Pain Knee Left Kacie Huerta APRN, [facility] [place] [facility] Procedures bcx-uqmj-jvrqxvqn-elbow arthrocentesis: L knee joint C.N.P., D.N.P. [address] [place] [address] Referral ID Status Reason Start Date Expiration Date Visits Requ ested Visits Authorized [id number] Closed 07/12/2021 07/12/2022 1 1 utpatient (Routine) - Closed Specialty Diagnoses / Procedures Referred By Contact Refer red To Contact Diagnoses Pain Hip Left Kacie Huerta APRN, [facility] [place] [facility] Procedures kgl-buwc-kvczesvs-elbow arthrocentesis: L greater troch bursa C.N.P., D.N.P. [address] [place] [address] Referral ID Status Reason Start Date Expiration Date Visits Requ ested Visits Authorized [id number] Closed 07/12/2021 07/12/2022 1 1 Reason for Visit Reason Comments Follow-up Encounter Details Date Type Department Care Team Description 07/12/2021 Office Visit Department of Kacie Huerta, Pain Knee L eft (Primary Dx); Orthopedic Surgery in [place], Pain Hip Left Merlyn Dean D.N.P. [address] [place] [phone] Social History Tobacco Use Types [...] in his symptoms. His questions were answered SURVEYOR documented in this encounter Procedure Notes Theresa Santiago RAugustine - 07/12/2021 8:00 AM CDTAssociated Order(s): szo-lmro-ywrokfjl-elbow arthrocentesis: L greater troch bursa; wpt-vevd-oyzecblp -elbow arthrocentesis: L knee joint Post-Procedure Diagnose(s): [...] dressing care and follow-up with ordering provider SURVEYOR documented in this encounter Plan of Treatment Not on filedocumented as of this encounter Procedures Procedure Name Priority Date/Time Associated Diagnosis Comme nts AL ARTHCS ASP/INJ Routine 07/12/2021 8:50 AM Pain Knee Left Re sults for this MJR JT WO US CDT procedure are i n the results section. AL ARTHCS ASP/INJ Routine 07/12/2021 8:48 AM Pain Hip Left Res ults for this MJR JT WO US CDT procedure are i n the results section. documented in this encounter Results AL ARTHCS ASP/INJ MJR JT WO US (07/12/2021 [...] Code Phon e Number MMODAL MMODAL NA AL ARTHCS ASP/INJ MJR JT WO US (07/12/2021 [...] documented as of this encounter Care Teams Patternmaker Plaster And Plastic Relationship Specialty Start Date End Date Cintia Cobb M.D. PCP - General 02/19/17 02/20/[address] [phone] documented as of this encounter
--- OUTSIDE RECORDS SUMMARY | 2022-08-19 10:24 | XMS_ITS | Encounter Summary ---
:1960 Author Organization [facility] Address [address] [place] [address] Care Team Providers Name Role Phone Cintia Cobb M.D. Primary Care Provider [phone] Reason for Visit Reason Comments Medical Information Encounter Details Date Type Department Care Team Description 07/28/2021 Nurse Triage Department of Family Hanny Cosme, Medical Information Medicine, [facility], in [place] [phone] (Work[address] [address] Social History Tobacco Use Types Packs/Day Years Used Date Smoking Tobacco: Never Smokeless Tobacco: Never Alcohol Use Standard Drinks/Week Comments No 0 (1 standard drink = 0.6 oz pure alcoho l) Sex Assigned at Date Recorded Not on file documented as of this encounter Miscellaneous Notes Telephone Encounter - Hanny Cosme RKevin. - 07/28/2021 10:57 AM DELIVERY ASSOCIATE Patient calling to see why he shouldn't mix Perry with Tylenol and alcohol. Nurse continued to explain but patient refused recommendations. Stated he's going to continue to do what he's been doing andtake all 6 pain pills with half a bottle of Tylenol and wash it down with Wild [place], all at the same time. This could be life threatening and result in an overdose. Patient refused web feeder recommendation. Note sent to PCP team. Unable to contact patient due to him blocking [facility]. VERY ASSOCIATE documented in this encounter Plan of Treatment Not on filedocumented as of this encounter Visit Diagnoses Not on filedocumented in this encounter Additional Health Concerns Assessment Noted Time PHQ-9 Depression Total Score: 18 02/14/2013 9:53 AM CD T documented as of this encounter Care Teams Soil Checker Relationship Specialty Start Date End Date Cintia Cobb M.D. PCP - General 02/19/17 02/20/[id number] [place] [phone] documented as of this encounter
--- OUTSIDE RECORDS SUMMARY | 2022-08-19 10:24 | XMS_ITS | Encounter Summary ---
:1960 Author Organization [facility] Address [address] [place] [address] Care Team Providers Name Role Phone Cintia Cobb M.D. Primary Care Provider [phone] Encounter Details Date Type Department Care Team Description 08/13/2021 Orders Only [facility] SEMN PCP [facility] Priyanka Cobb Mellitus Type OLEG Piper M.D. 2 With Diabetic [address] [address] Neuropathy ( HCC) [place] [address] (Wo rk) Social History Tobacco [...] documented as of this encounter Care Teams Crane Follower Relationship Specialty Start Date End Date Cintia Cobb M.D. PCP - General 02/19/17 02/20/22 [address] [facility] [address] [place] [address] documented as of this encounter
--- OUTSIDE RECORDS SUMMARY | 2022-08-19 10:24 | XMS_ITS | Encounter Summary ---
:1960 Author Organization [facility] Address [address] [place] [address] Care Team Providers Name Role Phone Cintia Cobb M.D. Primary Care Provider [phone] Reason for Visit Reason Comments paperwork Encounter Details Date Type Department Care Team Description 09/24/2021 Clinical Communication Department of [facility] Yady donahue, paperwork Medicine, Jose Daniel Piper M.D. [address] [address] [place], [place] [phone] (Work) [phone] Social History Tobacco Use Types Packs/Day Years [...] cancellation of that surgical procedure on 10/07/21 MANAGER Telephone Encounter - Caro Harper - 09/24/2021 3:30 PM CST Patient asking to have someone call him regarding paperwork for the Pre-op Appt. Please call him at [phone]. Thanks MANAGER documented in this encounter Plan of Treatment Not on filedocumented as of this encounter Visit Diagnoses Not on filedocumented in this encounter Additional Health Concerns Infection Onset Date Last Indicated Resolved Time COVID19 Pending 09/30/2021 09/30/2021 09/30/2021 11:06 AM SPD MANAGER COVID19 Pending 10/03/2021 10/03/2021 10/23/2021 6:10 AM SPD MANAGER Assessment Noted Time PHQ-9 Depression Total Score: 18 02/14/2013 9:53 AM CD T documented as of this encounter Care Teams Access Service Representative Relationship Specialty Start Date End Date Cintia Cobb M.D. PCP - General 02/19/17 02/20/[address] [place] [phone] documented as of this encounter
--- OUTSIDE RECORDS SUMMARY | 2022-08-19 10:25 | XMS_ITS | Encounter Summary ---
:1960 Author Organization [facility] Address [address] [place] [address] Care Team Providers Name Role Phone Cintia Cobb M.D. Primary Care Provider [phone] Encounter Details Date Type Department Care Team Description 11/09/2020 Clinical Communication Department of Kacie Huerta, Orthopedic Surgery in [facility] [place], [place] D.N.P. [address] [phone] Social History Tobacco Use Types Packs/Day Years Used Date Smoking Tobacco: Never Smokeless Tobacco: Never Alcohol Use Standard Drinks/Week Comments No 0 (1 standard drink = 0.6 oz pure alcoho l) Sex Assigned at Date Recorded Not on file documented as of this encounter Miscellaneous Notes Telephone Encounter - Maricel Aleman R.N. - 11/13/2020 4:55 PM GLASS EDGER Left another message on patient's phone to update his plan of care. S EDGER Telephone Encounter - Maricel Aleman R.N. - 11/12/2020 11:26 AM GLASS EDGER LM for patient to callback on mobile number. S EDGER Telephone Encounter - Emelia Mujica L.P.N. - 11/09/2020 12:55 PM GLASS EDGER Attempt to contact patient his phone is currently not taking call. S EDGER Telephone Encounter - Aleksandra Garcia L.P.N. - 11/09/2020 12:38 PM GLASS EDGER Per Kacie- she would like to wait and see for the next couple weeks and see if this changes since gordyid find some relief. If the pain is still the same in 2 more weeks, she would like to order a CT of his knee. S EDGER Telephone Encounter - Emelia Mujica L.P.N. - 11/09/2020 11:29 AM GLASS EDGER Patient called with update on Left knee cortisone injection 10/30/20. He reports that it took away some of the pain but is scouring machine tender to touch on the left inside of knee. He does not wish to proceed with Pt he does have a pace maker so is unsure of option of a MRI. Please advise on next steps in plane of care. S EDGER documented in this encounter Plan of Treatment Not on filedocumented as of this encounter Visit Diagnoses Not on filedocumented in this encounter Additional Health Concerns Assessment Noted Time PHQ-9 Depression Total Score: 18 02/14/2013 9:53 AM CD T documented as of this encounter Care Teams Mill Order Scheduler Relationship Specialty Start Date End Date Cintia Cobb M.D. PCP - General 02/19/17 02/20/[address] [place] [phone] documented as of this encounter
--- OUTSIDE RECORDS SUMMARY | 2022-08-19 10:25 | XMS_ITS | Encounter Summary ---
:1960 Author Organization [facility] Address [address] [place] [address] Care Team Providers Name Role Phone Cintia Cobb M.D. Primary Care Provider [phone] Reason for Visit Reason Comments Med Refill Encounter Details Date Type Department Care Team Description 11/20/2020 Refill Department of [facility] Angélica Cobb Med Refill Medicine, Jose Daniel Piper M.D. Clinic, in [address] [address] [place], [place] [address] [phone] Social History Tobacco Use Types Packs/Day Years [...] documented as of this encounter Care Teams Engagement Specialist Relationship Specialty Start Date End Date Cintia Cobb M.D. PCP - General 02/19/17 02/20/[address] [place] [phone] documented as of this encounter
--- OUTSIDE RECORDS SUMMARY | 2022-08-19 10:25 | XMS_ITS | Encounter Summary ---
:1960 Author Organization [facility] Address [address] [place] [address] Care Team Providers Name Role Phone Cintia Cobb M.D. Primary Care Provider [phone] Reason for Visit Reason Comments Follow-up Encounter Details Date Type Department Care Team Description 03/12/2021 Clinical Communication Department of [facility], Follow-up Medicine, Jose Daniel Piper M.D. [facility], [address] [address] [place], [place] [phone] (Work) [phone] Social History Tobacco Use Types Packs/Day Years [...] as of this encounter Care Teams Paper Grader Relationship Specialty Start Date End Date Cintia Cobb M.D. PCP - General 02/19/17 02/20/[address] [place] [phone] documented as of this encounter
--- OUTSIDE RECORDS SUMMARY | 2022-08-19 10:25 | XMS_ITS | Encounter Summary ---
:1960 Author Organization [facility] Address [address] [place] [address] Care Team Providers Name Role Phone Cintia Cobb M.D. Primary Care Provider [phone] Reason for Visit Reason Comments Post Surgery Question Encounter Details Date Type Department Care Team Description 04/10/2021 Clinical Department of [place] [facility] Communication Family MedicineMin Megan Questio n [place] S, M.D. Clinic, in [address] [address] [place], [place] [phone] (Work) [phone] Social History Tobacco Use Types Packs/Day Years [...] many times and nothing has happened. This typewriter assembly and parts inspector informed patient that this is highly not recommended by his surgeon, as it can lead to dislocation. Patient then began carrying on and making negative slurs about the surgeon and wanted this typewriter assembly and parts inspector to tell that to his surgeon. This typewriter assembly and parts inspector attempted to deescalate and change the conversation to see if there is any other other questions to address. Patient continued to say rude comments about the surgeon. Patient continued to complain, so typewriter assembly and parts inspector ended the call. Telephone Encounter - Loly [...] us to call his wifes phone at [phone]. A detailed message can be left on this line if she doesn't answer. His main number has [employer] line blocked and no voicemail Name of [...] documented as of this encounter Care Teams Optometric Coordinator Relationship Specialty Start Date End Date Cintia Cobb M.D. PCP - General 02/19/17 02/20/[address] [address] documented as of this encounter
--- OUTSIDE RECORDS SUMMARY | 2022-08-19 10:25 | XMS_ITS | Encounter Summary ---
:1960 Author Organization [facility] Address [address] [place] [address] Care Team Providers Name Role Phone Cintia Cobb M.D. Primary Care Provider [phone] Reason for Visit Reason Comments FYI Encounter Details Date Type Department Care Team Description 04/15/2021 Clinical Communication Department of [facility] Medicine, Jose Daniel Piper M.D. [address] [address] [place], [place] [phone] (Work) [phone] Social History Tobacco Use Types Packs/Day Years [...] you. It has appeared you have blocked [facility] from calling your phone number. Dr. Song [...] your personal email. Please call us at [phone] to utilize your [facility] Portal or enable phone calls/ voicemails to you from [facility] so we can communicate effectively with you. Thank you Telephone Encounter - Shanice Ferguson - 04/15/2021 8:40 AM CDT Reason for Communication: gabapentin Current - pt blocked the phone number for [facility] so he cannot get a call back. Pt asked that you email him at [email or web address] Can Nursing/Provider leave a detailed message?: no [...] documented as of this encounter Care Teams Chamber Walker Relationship Specialty Start Date End Date Cintia Cobb M.D. PCP - General 02/19/17 02/20/[address] [place] [phone] documented as of this encounter
--- OUTSIDE RECORDS SUMMARY | 2022-08-19 10:25 | XMS_ITS | Encounter Summary ---
:[address] [facility] Address [address] [place] [address] Care Team Providers Name Role Phone Cintia Cobb M.D. Primary Care Provider [phone] Reason for Visit Reason Comments Medication Question Encounter Details Date Type Department Care Team Description 03/01/2021 Clinical [facility], Cintia Copeland M.D. Clinic, in [address] [address] [place], [place] [phone] (Work) [phone] Social History Tobacco Use Types Packs/Day Years [...] What number can I reach you at? [phone] Magali What is the patient's request? Ed [...] symptoms or side effects, please route to [facility] pool of prescribing provider - if new symptoms have having side effects, please transfer to off-site triage ([phone]) documented in this encounter Plan of Treatment Not on filedocumented as of this encounter Visit Diagnoses Not on filedocumented in this encounter Additional Health Concerns Assessment Noted Time PHQ-9 Depression Total Score: 18 02/14/2013 9:53 AM CD T documented as of this encounter Care Teams Regional Hr Manager Relationship Specialty Start Date End Date Cintia Cobb M.D. PCP - General 02/19/17 02/20/[address] [address] documented as of this encounter
--- OUTSIDE RECORDS SUMMARY | 2022-08-19 10:25 | XMS_ITS | Encounter Summary ---
:[address] [facility] Address [address] [place] [address] Care Team Providers Name Role Phone Cintia Cobb M.D. Primary Care Provider [phone] Reason for Visit Reason Comments Pain Medicine Intake - Return Patient Patient here for consult, c/o low back pain Visit with radiating pain down lef t leg to the foot. [facility] had back sugery in 1988. No known injury. Outpatient (Routine) - Closed Specialty Diagnoses / Procedures Referred By Contact Refer red To Contact Pain Medicine Diagnoses Spondylitis (HCC) Kacie Huerta APRN, [facility] C.N.P., D.N.P. [address] [place] [phone] Referral ID Status Reason Start Date Expiration Date Visits V isits Requested Authorized [id number] Closed Specialty 10/30/2020 10/30/2021 1 1 Services Required Encounter Details Date Type Department Care Team Description 12/03/2020 Comprehensive Visit Department of Pain Christian Gonzalez Low Back Chronic (Primary Dx); Medicine in [facility] Keely RAZO Spondylitis (HCC); [place], [place] [address] [facility] Spondylosis Lumbar Without Myelopathy; [address] [place], [place] [address] Social History Tobacco Use Types Packs/Day [...] He is unable to undergo evaluation in [place] by report. He states that there were some inappropriate behavior, which resulted in termination from that campus. He has been up to [facility] in the [facility]. He has undergone evaluations of musculoskeletal issues as well as his low back. He was previously referred to [facility]. He underwent an epidural injection, which gave [...] ESOPHAGOGASTRODUODENOSCOPY; Surgeon: Rene Carlson M.D.; Location: [facility] GI LAB ??? LAPAROSCOPIC ASSISTED - GASTRIC BYPASS N/A 11/21/2014 Laparoscopic assisted - Gastric bypass ??? OPEN REDUCTION INTERNAL FIXATION FEMUR Left 08/13/2019 Procedure: OPEN REDUCTION INTERNAL FIXATION LEFT FEMUR; Surgeon: John Norman M.D.; Location:[facility] OR ??? OTHER CONVERTED SHX [...] like to consider some options in the [facility]. We offered to make a referral [...] spent a total of 53 minutes in nup-lneq-au-face time performing a review of the record [...] as of this encounter Care Teams Log Washer Relationship Specialty Start Date End Date Cintia Cobb M.D. PCP - General 02/19/17 02/20/[address] [place] [phone] documented as of this encounter
--- OUTSIDE RECORDS SUMMARY | 2022-08-19 10:25 | XMS_ITS | Encounter Summary ---
:1960 Author Organization [facility] Address [address] [place] [address] Care Team Providers Name Role Phone Cintia Cobb M.D. Primary Care Provider [phone] Reason for Visit Reason Comments Medical Information Encounter Details Date Type Department Care Team Description 04/15/2021 Nurse Triage Department of [facility] Ashley Cole Medic al Information Medicine, [facility].NPili [facility], in [address] [address] [place], [place] [phone] (Work) [phone] Social History Tobacco Use Types Packs/Day Years [...] as of this encounter Care Teams Java Grails Developer Relationship Specialty Start Date End Date Cintia Cobb M.D. PCP - General 02/19/17 02/20/[address] [place] [phone] documented as of this encounter
--- OUTSIDE RECORDS SUMMARY | 2022-08-19 10:25 | XMS_ITS | Encounter Summary ---
:1960 Author Organization [facility] Address [address] [place] [address] Care Team Providers Name Role Phone Cintia Cobb M.D. Primary Care Provider [phone] Reason for Visit Reason Comments Follow-up Triage note 02/05 Encounter Details Date Type Department Care Team Description 02/11/2021 Clinical Department of [place] Follow-up ([facility] Communication Family Medicine, Cintia Copeland note 02/05) Jose Daniel Piper M.D. Clinic, in [address] [address] [place], [place] [phone] (Work) [phone] Social History Tobacco Use Types Packs/Day Years [...] appointment with his spine surgeon in the [facility]. If he does not, he should make [...] of this encounter Care Teams Professor Of Environmental Studies Relationship Specialty Start Date End Date Cintia Cobb M.D. PCP - General 02/19/17 02/20/[address] [phone] documented as of this encounter
--- OUTSIDE RECORDS SUMMARY | 2022-08-19 10:25 | XMS_ITS | Encounter Summary ---
:1960 Author Organization [facility] Address [address] [place] [address] Care Team Providers Name Role Phone Cintia Cobb M.D. Primary Care Provider [phone] Reason for Visit Reason Comments Shortness of Breath COVID Nurse Line Encounter Details Date Type Department Care Team Description 04/05/2021 Nurse Triage Department of [facility] Joy Pineda Shor tness of Breath; Medicine, [facility] COVID Nurse Line Clinic, in [place] [phone] [address] Social History Tobacco Use Types [...] [2] SAME as normal Protocols used: BREATHING [id number] Care Advice Patient/Caregiver understands and will follow [...] Screening ASSESSMENT Region Select appropriate region: : [place] Age Pathway Select approprite pathway: : Adult [...] care: Yes The following references were used: [facility] novel coronavirus (COVID- 19) resources Nursing judgement documented in this encounter Plan of Treatment Not on filedocumented as of this encounter Visit Diagnoses Not on filedocumented in this encounter Additional Health Concerns Assessment Noted Time PHQ-9 Depression Total Score: 18 02/14/2013 9:53 AM CD T documented as of this encounter Care Teams Check Cashier Relationship Specialty Start Date End Date Cintia Cobb M.D. PCP - General 02/19/17 02/20/[address] [phone] documented as of this encounter
--- OUTSIDE RECORDS SUMMARY | 2022-08-19 10:25 | XMS_ITS | Encounter Summary ---
:1960 Author Organization [facility] Address [address] [place] [address] Care Team Providers Name Role Phone Cintia Cobb M.D. Primary Care Provider [phone] Reason for Visit Reason Comments Appointment Encounter Details Date Type Department Care Team Description 04/15/2021 Clinical Communication Department of [facility] [place] [facility], Appointment Medicine, Jose Daniel Piper M.D. [address] [address] [place], [place] [phone] (Work) [phone] Social History Tobacco Use Types Packs/Day Years [...] phone number can I reach you at? [phone] ('s number) New Symptom and duration of [...] after 6:00 PM. Routing: - transfer to keyseater operator line if new or worsening symptoms - team silk spooler for continued symptoms - POWER REGULATOR pool for chronic issue or medication refill/question documented in this encounter Plan of Treatment Not on filedocumented as of this encounter Visit Diagnoses Not on filedocumented in this encounter Additional Health Concerns Assessment Noted Time PHQ-9 Depression Total Score: 18 02/14/2013 9:53 AM CD T documented as of this encounter Care Teams Commercial Agent Relationship Specialty Start Date End Date Cintia Cobb M.D. PCP - General 02/19/17 02/20/[address] [address] documented as of this encounter
--- OUTSIDE RECORDS SUMMARY | 2022-08-19 10:25 | XMS_ITS | Encounter Summary ---
:1960 Author Organization [facility] Address [address] [place] [address] Care Team Providers Name Role Phone Cintia Cobb M.D. 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 PCP - General 02/19/17 02/20/22 [address] [facility] [address] [place] [phone] documented as of this encounter
--- OUTSIDE RECORDS SUMMARY | 2022-08-19 10:25 | XMS_ITS | Encounter Summary ---
:1960 Author Organization [facility] Address [address] [place] [address] Care Team Providers Name Role Phone Cintia Cobb M.D. Primary Care Provider [phone] Reason for Visit Reason Comments SOB/ weight gain Encounter Details Date Type Department Care Team Description 04/05/2021 Clinical Communication Department of [place] SOB/ weight gain Family MedicineMin Megan [place] S, M.D. Clinic, in [address] [address] [place], [place] [phone] (Work) [phone] Social History Tobacco Use Types Packs/Day Years [...] as of this encounter Care Teams Community Arts Officer Relationship Specialty Start Date End Date Cintia Cobb M.D. PCP - General 02/19/17 02/20/[address] [place] [address] documented as of this encounter
--- OUTSIDE RECORDS SUMMARY | 2022-08-19 10:25 | XMS_ITS | Encounter Summary ---
:1960 Author Organization [facility] Address [address] [place] [address] Care Team Providers Name Role Phone Cintia Cobb M.D. Primary Care Provider [phone] Reason for Visit Reason Comments Paper Work Referrals Outside of [place] Encounter Details Date Type Department Care Team Description 12/04/2020 Clinical Communication Department of Christian Mcduffie Paper Work Medicine in [place] RAZO M.D. (Referrals Outside [place], [place] [address] [facility]) [address] [place] [phone] Social History Tobacco Use Types Packs/Day Years [...] not decided if he will go to [facility] in [place] or to [place] [facility] in [place]. documented in this encounter Plan of Treatment Not on filedocumented as of this encounter Visit Diagnoses Not on filedocumented in this encounter Additional Health Concerns Assessment Noted Time PHQ-9 Depression Total Score: 18 02/14/2013 9:53 AM CD T documented as of this encounter Care Teams Power Plant Engineer Relationship Specialty Start Date End Date Cintia Cobb M.D. PCP - General 02/19/17 02/20/[address] [address] documented as of this encounter
--- OUTSIDE RECORDS SUMMARY | 2022-08-19 10:25 | XMS_ITS | Encounter Summary ---
:1960 Author Organization [facility] Address [address] [place] [address] Care Team Providers Name Role Phone Cintia Cobb M.D. Primary Care Provider [phone] Encounter Details Date Type Department Care Team Description 10/15/2020 Clinical Communication Department of Kacie Huerta, Orthopedic Surgery in [facility] [place], [place] D.N.P. [address] [place] [phone] Social History Tobacco Use Types Packs/Day Years [...] as of this encounter Care Teams Passenger Service Manager Relationship Specialty Start Date End Date Cintia Cobb M.D. PCP - General 02/19/17 02/20/[phone] [place] [phone] documented as of this encounter
--- OUTSIDE RECORDS SUMMARY | 2022-08-19 10:25 | XMS_ITS | Encounter Summary ---
:1960 Author Organization [facility] Address [address] [place] [address] Care Team Providers Name Role Phone Cintia Cobb M.D. Primary Care Provider [phone] Encounter Details Date Type Department Care Team Description 12/18/2020 Hospital Encounter Department of [place] Diabetes Mellitus Laboratory Medicine Cintia Copeland Type 2 With Diabetic in Feliz Arellano M.D. Neuropathy ([facility]) [address] [place] [phone] Social History Tobacco Use Types Packs/Day [...] documented as of this encounter Care Teams Welfare Manager Relationship Specialty Start Date End Date Cintia Cobb M.D. PCP - General 02/19/17 02/20/[address] [address] documented as of this encounter
--- OUTSIDE RECORDS SUMMARY | 2022-08-19 10:25 | XMS_ITS | Encounter Summary ---
:1960 Author Organization [facility] Address [address] [place] [address] Care Team Providers Name Role Phone Cintia Cobb M.D. Primary Care Provider [phone] Reason for Visit Reason Comments Referral Pain Med Referral Encounter Details Date Type Department Care Team Description 02/18/2021 Clinical Communication Department of Pain Star Mark Referral (Pain Med Medicine in [place], R.N. Referral) [place], [place] [phone] [address] [facility] (Work) [place] [address] Social History Tobacco Use Types [...] patient decided to seek care in the [facility]. Please review triage note from 02/05/21 and advise, thank you! documented in this encounter Plan of Treatment Not on filedocumented as of this encounter Visit Diagnoses Not on filedocumented in this encounter Additional Health Concerns Assessment Noted Time PHQ-9 Depression Total Score: 18 02/14/2013 9:53 AM CD T documented as of this encounter Care Teams Armoured Car Escort Relationship Specialty Start Date End Date Cintia Cobb M.D. PCP - General 02/19/17 02/20/[address] [address] documented as of this encounter
--- OUTSIDE RECORDS SUMMARY | 2022-08-19 10:25 | XMS_ITS | Encounter Summary ---
:1960 Author Organization [facility] Address [address] [place] [address] Care Team Providers Name Role Phone Cintia Cobb M.D. Primary Care Provider [phone] Reason for Referral Outpatient (Routine) - Closed Specialty Diagnoses / Procedures Referred By Contact Refer red To Contact Diagnoses Pain Low Back Chronic Spondylosis Lumbar Without Myelopathy Radiculopathy Lumbar Christian Gonzalez II, M.D. External, Referring [address] [place] [address] Referral ID Status Reason Start Date Expiration Visits Visits Date Requested Authorized [id number] Closed Continuity of 12/04/2020 12/04/2021 1 1 Care Outpatient (Routine) - Closed Specialty Diagnoses / Procedures Referred By Contact Refer red To Contact Diagnoses Pain Low Back Chronic Spondylosis Lumbar Without Myelopathy Radiculopathy Lumbar Christian Gonzalez II, M.D. External, Referring [address] [place] [address] Referral ID Status Reason Start Date Expiration Visits Visits Date Requested Authorized [id number] Closed Continuity of 12/04/2020 12/04/2021 1 1 Care Outpatient (Routine) - Closed Specialty Diagnoses / Procedures Referred By Contact Refer red To Contact Diagnoses Pain Low Back Chronic Spondylosis Lumbar Without Myelopathy Radiculopathy Lumbar Christian Gonzalez II, M.D. External, Referring [address] [place] [address] Referral ID Status Reason Start Date Expiration Visits Visits Date Requested Authorized [id number] Closed Continuity of 12/04/2020 12/04/2021 1 1 Care Encounter Details Date Type Department Care Team Description 12/04/2020 Orders Only Department of Pain Estrella Mark, Pain Low Back Chronic (Primary Dx); Medicine in [place] Spondylosis Lumbar Without Myelopathy; [place] [phone] Radiculopathy Lumbar [address] [facility] (Work) [place] [address] Social History Tobacco Use Types [...] documented as of this encounter Care Teams Fur Tanner Relationship Specialty Start Date End Date Cintia Cobb M.D. PCP - General 02/19/17 02/20/[address] [phone] documented as of this encounter
--- OUTSIDE RECORDS SUMMARY | 2022-08-19 10:25 | XMS_ITS | Encounter Summary ---
:1960 Author Organization [facility] Address [address] [place] [address] Care Team Providers Name Role Phone Cintia Cobb M.D. Primary Care Provider [phone] Reason for Visit Reason Comments Gabapentin/ SE Encounter Details Date Type Department Care Team Description 03/04/2021 Clinical Communication Department of [facility] millie/ Family MedicineMin Megan [place] S, M.D. Clinic, in [address] [address] [place], [place] [phone] (Work) [phone] Social History Tobacco Use Types Packs/Day Years [...] as of this encounter Care Teams Steam Pressure Chamber Operator Relationship Specialty Start Date End Date Cintia Cobb M.D. PCP - General 02/19/17 02/20/[address] [place] [phone] documented as of this encounter
--- OUTSIDE RECORDS SUMMARY | 2022-08-19 10:25 | XMS_ITS | Encounter Summary ---
:1960 Author Organization [facility] Address [address] [place] [address] Care Team Providers Name Role Phone Cintia Cobb M.D. Primary Care Provider [phone] Encounter Details Date Type Department Care Team Description 12/18/2020 Hospital Encounter Department of [place] Anemia; Laboratory Cintia Copeland Gastric Bypa ss Status Post; Medicine in Jose Daniel Piper M.D. 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); [address] [place], [place] Hyper[place] [phone] Social History Tobacco Use Types Packs/Day [...] Organization Address City/State/ZIP Code Phon e Number [facility]- [address] [place], [place] [address] [place] [address] System in [place] [address] Lipid Panel (12/18/2020 7:49 [...] [facility] Code Phon e Number [id number] [place] [address] [place] [address] System [address] (ABNORMAL) Basic Metabolic Panel (12/18/2020 7:49 [...] CDT eGFR-Black/Afri >90 >=60 12/18/2020 CNFL can Namibian mL/min/BSA 8:31 PM CDT Comment: ----ADDITIONAL INFORMATION---- [...] Organization Address City/State/ZIP Code Phon e Number [facility]- [address] [place] [id number] [place] [address] [place] [address] System [address] (ABNORMAL) Vitamin B12 Assay (12/18/2020 7:49 [...] M.D. LAB BLOOD ADD-ON Performing Organization Address City/[facility] Phon e Number [facility]- [address] [place] [phone] [facility] [place] [address] System [address] (ABNORMAL) CBC without Differential (12/18/2020 7:48 PM CDT) [facility] gist Method Time Signature Hemoglobin 8.0 [...] Organization Address City/State/ZIP Code Phon e Number [facility]- [address] [place] [address] [place] [address] [place] [address] System [address] Hemoglobin A1c (12/18/2020 7:48 PM CDT) athologist Signature Hemoglobin A1c, 5.3 4.2 - 5.6 12/18/2020 CNFL B % 8:33 PM CDT Specimen Anatomical Collection Method Collection Time Receive d Time (Source) Location / / Volume Laterality Blood (Blood, 12/18/2020 7:48 PM 12/19/19 8:07 Venous) CDT PM CDT Cintia Copeland M.D. LAB BLOOD ADD-ON Performing Organization Address City/[facility]/ZIP Code Phon e Number [address] [address] [place] [address] System in [address] [address] [address] 25-Hydroxyvitamin D2 and D3 (12/18/2020 7:48 [...] and its performa nce characteristics determined by [facility] in a manner consistent with CLIA [...] CLINIC [address] [place], [place] [address] SUPPORT CENTER [facility] [place] [address] Laboratory Medicine and Pathology [address] [...] documented as of this encounter Care Teams Boom Truck Driver Relationship Specialty Start Date End Date Cintia Cobb M.D. PCP - General 02/19/17 02/20/[address] [place] [phone] documented as of this encounter
--- OUTSIDE RECORDS SUMMARY | 2022-08-19 10:25 | XMS_ITS | Encounter Summary ---
:1960 Author Organization [facility] Address [address] [place] [address] Care Team Providers Name Role Phone Cintia Cobb M.D. Primary Care Provider [phone] Reason for Visit Outpatient (Routine) - Canceled Specialty Diagnoses / Procedures Referred By Contact Refer red To Contact Family Medicine Diagnoses Anemia Microcytic Hypertension Essential Primary Diabetes Mellitus Type 2 With Diabetic Neuropathy (HCC) Hyperlipidemia On Treatment Gastric Bypass Status Post MANNY Cobb [facility] Gianna Piper M.D. [address] [place] [phone] Referral ID Status Reason Start Date Expiration Date Visits V isits Requested Authorized [id number] Canceled 11/08/2019 11/07/2020 1 1 Encounter Details Date Type Department Care Team Description 12/18/2020 Office Visit Department of [facility] Terri Cobb Mellitus Type 2 With Diabetic Neuropathy (HCC) (Primary Dx); MedicineMerlyn M.D. Diabetes Mellitus Type 2 Peripheral Neur opathy (HCC); [facility], in [address] [place] [address] Gastric Bypass Status Post; Merlyn Dean [facility] Flutter Atrial (HCC); [facility] [place] Pacemaker Cardiac Status Pos t; [address] [place] [phone] Benign Prostatic Hyperplasia Without Obs truction; MERLYN DEAN [place] [phone] (W ork) Pain Low Back; [id number] [place]; [phone] Anemia Iron Def iciency Social History Tobacco [...] Phon e Number [facility]- [address] [place], [place] [address] [facility] [place] [address] System in [place] [address] documented in this encounter [...] as of this encounter Care Teams Radiation Protection Engineer Relationship Specialty Start Date End Date Cintia Cobb M.D. PCP - General 02/19/17 02/20/[address] [place] [phone] documented as of this encounter
--- OUTSIDE RECORDS SUMMARY | 2022-08-19 10:25 | XMS_ITS | Encounter Summary ---
:1960 Author Organization [facility] Address [address] [place] [address] Care Team Providers Name Role Phone Cintia Cobb M.D. Primary Care Provider [phone] Reason for Visit Reason Comments Shoulder Pain Pt presents to ED with left shoulder pain. Pt reports a branch hit his shoulder when mowing lawn 08/27. Encounter Details Date Type Department Care Team Description 02/18/2021 Emergency [place] [facility] Alexey Patel, Pain Shoulder Left Department P.A.-C. (Primary Dx) [address] [address] [address] [place], [place] [phone] Social History Tobacco Use Types Packs/Day [...] be sent through Care Everywhere. Shoulder Pain (Norwegian)documented in this encounter Medications at Time of [...] documented as of this encounter Care Teams Substation Operator Apprentice Relationship Specialty Start Date End Date Cintia Cobb M.D. PCP - General 02/19/17 02/20/[address] [place] [phone] documented as of this encounter
--- OUTSIDE RECORDS SUMMARY | 2022-08-19 10:25 | XMS_ITS | Encounter Summary ---
:1960 Author Organization [facility] Address [address] [place] [address] Care Team Providers Name Role Phone Cintia Cobb M.D. Primary Care Provider [phone] Reason for Visit Reason Comments Follow-up Medication request Encounter Details Date Type Department Care Team Description 01/30/2021 Clinical Communication Department of Pain Star Mark Follow-up Medicine in [place] Mot[place] R.N. ([place], [place] [phone] request) [address] [facility] (Work) [place] [address] Social History Tobacco Use Types [...] name and he states he has a filipino friend in the [facility] with similar back problems that was going [...] Ihave a wet back friend in the [facility] with similar back problems who was given [...] documented as of this encounter Care Teams Washing Machine Striper Relationship Specialty Start Date End Date Cintia Cobb M.D. PCP - General 02/19/17 02/20/[address] [place] [phone] documented as of this encounter
--- OUTSIDE RECORDS SUMMARY | 2022-08-19 10:25 | XMS_ITS | Encounter Summary ---
:1960 Author Organization [facility] Address [address] [place] [address] Care Team Providers Name Role Phone Cintia Cobb M.D. Primary Care Provider [phone] Encounter Details Date Type Department Care Team Description 12/25/2020 Hospital Encounter Department of Abhay Elizondo Admini strative Purpose Laboratory Medicine MLinda, Ph.D. Exam in [address] [address] [place], [place] [phone] (Work) [phone] Social History Tobacco Use Types Packs/Day Years [...] documented as of this encounter Care Teams Railroad Car Loader Relationship Specialty Start Date End Date Cintia Cobb M.D. PCP - General 02/19/17 02/20/[address] [address] documented as of this encounter
--- OUTSIDE RECORDS SUMMARY | 2022-08-19 10:25 | XMS_ITS | Encounter Summary ---
:1960 Author Organization [facility] Address [address] [place] [address] Care Team Providers Name Role Phone Cintia Cobb M.D. Primary Care Provider [phone] Reason for Visit Reason Comments Back Surgery questions Encounter Details Date Type Department Care Team Description 12/25/2020 Clinical Department of [place] Back Surgery Communication Family Medicine, Cintia Copeland Jose Daniel Piper M.D. Clinic, in [address] [address] [place], [place] [phone] (Work) [phone] Social History Tobacco Use Types Packs/Day Years [...] as of this encounter Care Teams Patternmaker Wood Relationship Specialty Start Date End Date Cintia Cobb M.D. PCP - General 02/19/17 02/20/[address] [phone] documented as of this encounter
--- OUTSIDE RECORDS SUMMARY | 2022-08-19 10:25 | XMS_ITS | Encounter Summary ---
:1960 Author Organization [facility] Address [address] [place] [address] Care Team Providers Name Role Phone Cintia Bullock M.D. Primary Care Provider [phone] Reason for Referral Outpatient (Routine) - Closed Specialty Diagnoses / Procedures Referred By Contact Refer red To Contact Pain Medicine Diagnoses Pain Low Back Unspecified Cintia Bullock DREW Piper M.D. [address] [place] [phone] Referral ID Status Reason Start Date Expiration Date Visits V isits Requested Authorized [id number] Closed Specialty 02/18/2021 02/18/2022 1 1 Services Required Reason for Visit Reason Comments Medical Information Encounter Details Date Type Department Care Team Description 02/05/2021 Nurse Triage [facility] Information Medicine, [place] [facility], in [place] [address] [place] [address] [address] [place] [address] Social History Tobacco Use Types [...] appointment with his spine surgeon in the [facility]. If he does not, he should make one. He will also likely need back imaging if he has not had this recently. Preferably an MRI, but I do not remember if his pacemaker is MRI compatible. If not, then a CT scan. I can order these things or he can have them done through his spine surgeon. Cintia Seugra Telephone Encounter - Marialuisa Romero R.N. - [...] take the pressure off the nerves to [facility] [place]. Call disconnected and unable to reach in callback. Message sent to primary as requested. documented in this encounter Plan of Treatment Scheduled Referrals Name Type Priority Associated Diagnoses Order [facility] Pain Medicine - Outpatient Referral Routine Pain Low Back Expe cted: General consult 02/19/2021, (clinic) Expires: 02/19/2024 documented as of this encounter Visit Diagnoses Diagnosis Pain Low Back Unspecified - Primary documented in this encounter Additional Health Concerns Assessment Noted Time PHQ-9 Depression Total Score: 18 02/14/2013 9:53 AM CD T documented as of this encounter Care Teams Timber Girdler Relationship Specialty Start Date End Date Cintia Bullock M.D. PCP - General 02/19/17 02/20/[address] [place] [phone] documented as of this encounter
--- OUTSIDE RECORDS SUMMARY | 2022-08-19 10:25 | XMS_ITS | Encounter Summary ---
:1960 Author Organization [facility] Address [address] [place] [address] Care Team Providers Name Role Phone Cintia Cobb M.D. Primary Care Provider [phone] Encounter Details Date Type Department Care Team Description 11/14/[address] [facility] Sa chico Brand M.D. [address] [place], [place] [phone] (Wo rk) Social History [...] documented as of this encounter Care Teams Arcade Games Mechanic Relationship Specialty Start Date End Date Cintia Cobb M.D. PCP - General 02/19/17 02/20/[address] [place] [phone] documented as of this encounter
--- OUTSIDE RECORDS SUMMARY | 2022-08-19 10:25 | XMS_ITS | Encounter Summary ---
:1960 Author Organization [facility] Address [address] [place] [address] Care Team Providers Name Role Phone Cintia Cobb M.D. Primary Care Provider Encounter Details Date Type Department Care Team Description 02/05/2021 Orders Only [facility] SEMN PCP [facility] Priyanka Cobb Mellitus Type DREWT Cintia Piper M.D. 2 With Diabetic [address] [address] Neuropathy ( HCC) [place] [phone] (Wo rk) Social History Tobacco [...] documented as of this encounter Care Teams Evaluator Transfer Students Relationship Specialty Start Date End Date Cintia Cobb M.D. PCP - General 02/19/17 02/20/22 [address] [facility] [address] [place] [phone] documented as of this encounter
--- OUTSIDE RECORDS SUMMARY | 2022-08-19 10:25 | XMS_ITS | Encounter Summary ---
:1960 Author Organization [facility] Address [address] [place] [address] Care Team Providers Name Role Phone Cintia Cobb M.D. Primary Care Provider [phone] Reason for Referral Outpatient (Routine) - Closed Specialty Diagnoses / Procedures Referred By Contact Refer red To Contact Pain Medicine Diagnoses Spondylitis (HCC) Kacie Huerta APRN, [facility] C.N.P., D.N.P. [address] [place] [address] Referral ID Status Reason Start Date Expiration Date Visits V isits Requested Authorized [id number] Closed Specialty 10/30/2020 10/30/2021 1 1 Services Required utpatient (Routine) - Closed Specialty Diagnoses / Procedures Referred By Contact Refer red To Contact Diagnoses Primary Osteoarthritis Knee Left Kacie Huerta APRN, [facility] Procedures xlw-deod-koxoucnc-elbow arthrocentesis: L knee joint C.N.P., D.N.P. [address] [place] [address] Referral ID Status Reason Start Date Expiration Date Visits Requ ested Visits Authorized [id number] Closed 10/30/2020 10/30/2021 1 1 CIATE ACCOUNT MANAGER Reason for Visit Reason Comments Follow-up CT Results Pain Outpatient (Routine) - Closed Specialty Diagnoses / Procedures Referred By Contact Refer red To Contact Orthopedic Surgery Kacie Huerta, [place]KE[place], [facility] [place], FidelN.PPili [address] [place] [phone] Referral ID Status Reason Start Date Expiration Date Visits Requ ested Visits Authorized [id number] Closed 08/22/2020 08/22/2021 1 1 Encounter Details Date Type Department Care Team Description 10/30/2020 Office Visit Department of Kacie Huerta, Primary Ost eoarthritis Knee Left (Primary Dx); Orthopedic Surgery in [place], Spond ylitis ([facility]) Jose Daniel Dean D.N.P. [address] [phone] Social History Tobacco Use Types Packs/Day [...] not be able to do this in [place]. In regard to his knee I did [...] agrees with this plan. Questions were answered CIATE ACCOUNT MANAGER documented in this encounter Procedure Notes Loly Betts L.P.N. - 10/30/2020 8:00 AM CSTAssociated Order(s): oge-tfyy-hwlkfoxf-elbow arthrocentesis: L knee joint Post-Procedure Diagnose(s): Primary [...] dressing care and follow-up with ordering provider CIATE ACCOUNT MANAGER documented in this encounter Plan of Treatment Scheduled Referrals Name Type Priority Associated Diagnoses Order S chedule Pain Medicine - Outpatient Referral Routine Spondylitis (HCC) Expected: General consult 10/30/2020 (clinic) (Approximate), Expires: 10/30/2023 documented as of this encounter Procedures Procedure Name Priority Date/Time Associated Diagnosis Comme nts TN ARTHCS ASP/INJ Routine 10/30/2020 8:00 AM Primary Osteoarth ritis Results for this MJR JT WO US ASSOCIATE ACCOUNT MANAGER Knee Left procedure are i n the results section. documented in this encounter Results TN ARTHCS ASP/INJ MJR JT WO US (10/30/2020 8:00 AM ASSOCIATE ACCOUNT MANAGER) Narrative MMODAL - 10/30/2020 8:00 AM ASSOCIATE ACCOUNT MANAGER Loly Betts L.P.N. ? 10/31/2020 ??3:30 AM [...] injection 60 mg Given 10/30/2020 8:00 AM ASSOCIATE ACCOUNT MANAGER 60 mg (KENALOG-40) 60 mg, intra-articular, One-Time Injection, Starting on Thu10/30/20 at 0800, For 1 dose documented in this encounter Additional Health Concerns Assessment Noted Time PHQ-9 Depression Total Score: 18 02/14/2013 9:53 AM CD T documented as of this encounter Care Teams Operations Inspector Relationship Specialty Start Date End Date Cintia Cobb M.D. PCP - General 02/19/17 02/20/[id number] [phone] documented as of this encounter
--- OUTSIDE RECORDS SUMMARY | 2022-08-19 10:25 | XMS_ITS | Encounter Summary ---
:1960 Author Organization [facility] Address [address] [place] [address] Care Team Providers Name Role Phone Cintia Cobb M.D. Primary Care Provider [phone] Reason for Visit Reason Comments Gabapentin question Encounter Details Date Type Department Care Team Description 03/18/2021 Clinical Department of Song [facility] [place] S, M.D. Clinic, in [address] [address] [place], [place] [phone] (Work) [phone] Social History Tobacco Use Types Packs/Day Years [...] as of this encounter Care Teams Physician Allergist Immunologist Relationship Specialty Start Date End Date Cintia Cobb M.D. PCP - General 02/19/17 02/20/[address] [place] [phone] documented as of this encounter
--- OUTSIDE RECORDS SUMMARY | 2022-08-19 10:26 | XMS_ITS | Encounter Summary ---
:1960 Author Organization [facility] Address [address] [place] [address] Care Team Providers Name Role Phone Cintia Cobb M.D. Primary Care Provider [phone] Encounter Details Date Type Department Care Team Description 06/27/2020 Orders Only Pharmacy Prior Auth RO Unassigned, Pcp [phone] Social History Tobacco Use Types Packs/Day Years [...] documented as of this encounter Care Teams Evs Attendant Relationship Specialty Start Date End Date Cintia Cobb M.D. PCP - General 02/19/17 02/20/[address] [place] [phone] documented as of this encounter
--- OUTSIDE RECORDS SUMMARY | 2022-08-19 10:26 | XMS_ITS | Encounter Summary ---
:1960 Author Organization [facility] Address [address] [place] [address] Care Team Providers Name Role Phone Cintia Cobb M.D. Primary Care Provider [phone] Reason for Referral Outpatient (Routine) - Closed Specialty Diagnoses / Procedures Referred By Contact Refer red To Contact Orthopedic Surgery Kacie Huerta APRN, [facility] C.N.P., D.N.P. [address] [place] [address] Referral ID Status Reason Start Date Expiration Date Visits Requ ested Visits Authorized [id number] Closed 08/22/2020 08/22/2021 1 1 RI/CAT/PET Scan (Routine) - Closed Specialty Diagnoses / Procedures Referred By Contact Refer red To Contact Radiology Diagnoses Pain Low Back Unspecified Kacie Huerta APRN, [facility] Procedures CT Lumbar Spine without IV Contrast C.N.P., D.N.P. [address] [place] [address] Referral ID Status Reason Start Date Expiration Date Visits Requ ested Visits Authorized [id number] Closed 08/22/2020 08/22/2021 1 1 RI/CAT/PET Scan (Routine) - Closed Specialty Diagnoses / Procedures Referred By Contact Refer red To Contact Radiology Diagnoses Pain Hip Left Kacie Huerta APRN, [facility] Region Procedures CT Hip Left without IV Contrast C.N.P., D.N.P. [address] [place] [phone] Referral ID Status Reason Start Date Expiration Date Visits Requ ested Visits Authorized [id number] Closed 08/22/2020 08/22/2021 1 1 NURSE Reason for Visit Reason Comments Injections Encounter Details Date Type Department Care Team Description 08/22/2020 Clinical Communication Department of Kacie Huerta I njections Orthopedic Surgery [place] D.N.P. [address] [facility] [address] [place] [address] [phone] Social History Tobacco Use Types Packs/Day Years Used Date Smoking Tobacco: Never Smokeless Tobacco: Never Alcohol Use Standard Drinks/Week Comments No 0 (1 standard drink = 0.6 oz pure alcoho l) Sex Assigned at Date Recorded Not on file documented as of this encounter Miscellaneous Notes Telephone Encounter - Xochitl Edge R.N. - 08/24/2020 11:51 AM CVOR NURSE Patient is scheduled for the CT scans on 08/30/20. NURSE Telephone Encounter - Mehreen Coleman APRN, C.NEricka, D.N.P. - 08/24/2020 11:15 AM CST Lumbar and hip CT are ordered. Please have his schedule this when he is able. Following imaging, he can schedule with us to discuss results and next steps. If there are back issues seen on CT, he can follow up with whoever he wants. Thanks. NURSE Telephone Encounter - Xochitl Edge R.N. - 08/24/2020 10:32 AM CVOR NURSE TC from patient calling to schedule CT [...] with his back, he will return to [facility] for spine care and will not see Dr. Gonzalez. Consult for Dr. Gonzalez has been cancelled per his request and his call was transferred to the scheduling team. NURSE Telephone Encounter - Aleksandra Garcia L.P.N. - 08/22/2020 11:40 AM CVOR NURSE Called patient's per his request and informed her of Kacie's message below. Ed does not accept incoming calls from [place] on his phone. His will relay the message to call the scheduling line and set up 2 CT scans, an appointment with Kacie and wait to be called regarding the appointment with Dr. Gonzalez NURSE Telephone Encounter - Aleksandra Garcia L.P.N. - 08/22/2020 9:49 AM CVOR NURSE Patient called today with results of his [...] and get back to himhow to proceed. NURSE documented in this encounter Plan of Treatment Scheduled Referrals Name Type Priority Associated Order Schedule Diagnoses Orthopedic Surgery Outpatient Referral Routine Ex pected: office visit 08/22/2020 (clinic) (Approximate), Expires: 08/22/2023 documented as of this encounter Results CT Hip Left without IV Contrast (08/30/2020 1:21 PM CVOR NURSE) Anatomical Region Laterality Modality Lower Extremity, Hip, Musculoskeletal RST LOS, Left Computed Tomography Musculoskeletal ARZ LOS, Muskuloskeletal FLA LOS Specimen (Source) Anatomical Collection Method Collection Time Re ceived Time Location / / Volume Laterality 08/30/2020 1:33 PM CVOR NURSE Impressions 08/30/2020 1:38 PM CVOR NURSE Intramedullary ovidio and screw fixation across a healed intertrochanteric fracture of the left f emur; hardware appears well seated by CT. Mild left hip joint effusion and/or synovitis. Narrative 08/30/2020 1:38 PM CVOR NURSE EXAM: CT HIP LEFT WITHOUT IV CONTRAST [...] Spine without IV Contrast (08/30/2020 1:14 PM CVOR NURSE) Anatomical Region Laterality Modality Lumbar Spine, Neuroradiology RST LOS, Neuroradiology N/A Computed Tomography ARZ LOS, Neuroradiology FLA LOS Specimen (Source) Anatomical Collection Method Collection Time Re ceived Time Location / / Volume Laterality 08/30/2020 1:24 PM CVOR NURSE Impressions 08/30/2020 1:32 PM CVOR NURSE Spondylotic changes, as detailed level by level, includes moderate to severe spinal canal narrowing at L3-L 4 and moderate foraminal/extraforaminal narrowing on the left at L5-S1. Narrative 08/30/2020 1:32 PM CVOR NURSE EXAM: CT LUMBAR SPINE WITHOUT IV CONTRAST [...] documented as of this encounter Care Teams Funeral Director And Embalmer Relationship Specialty Start Date End Date Cintia Cobb M.D. PCP - General 02/19/17 02/20/[address] [phone] documented as of this encounter
--- OUTSIDE RECORDS SUMMARY | 2022-08-19 10:26 | XMS_ITS | Encounter Summary ---
:1960 Author Organization [facility] Address [address] [place] [address] Care Team Providers Name Role Phone Cintia Cobb M.D. Primary Care Provider [phone] Encounter Details Date Type Department Care Team Description 09/05/2020 Clinical Communication Department of Kacie Huerta, Orthopedic Surgery in [facility] [place], [place] D.N.P. [address] [phone] Social History Tobacco Use Types Packs/Day Years Used Date Smoking Tobacco: Never Smokeless Tobacco: Never Alcohol Use Standard Drinks/Week Comments No 0 (1 standard drink = 0.6 oz pure alcoho l) Sex Assigned at Date Recorded Not on file documented as of this encounter Miscellaneous Notes Telephone Encounter - Suzie Quan R.N. - 09/05/2020 3:04 PM CHEMICAL RESEARCH TECHNICIAN Spoke with Magali, patients . She will call at her convenience to schedule an appointment with Kacie to review Ed's CT scans. ICAL RESEARCH TECHNICIAN Telephone Encounter - Suzie Quan R.N. - 09/05/2020 3:03 PM CHEMICAL RESEARCH TECHNICIAN ----- Message from Kacie Huerta APRN, C.NPiliPPili, D.N.P. sent at 09/05/2020 10:11 AM CHEMICAL RESEARCH TECHNICIAN ----- Can we schedule a follow up to review CT scans? No hurry. Thanks ICAL RESEARCH TECHNICIAN documented in this encounter Plan of Treatment Not on filedocumented as of this encounter Visit Diagnoses Not on filedocumented in this encounter Additional Health Concerns Assessment Noted Time PHQ-9 Depression Total Score: 18 02/14/2013 9:53 AM CD T documented as of this encounter Care Teams Supervising Nurse Relationship Specialty Start Date End Date Cintia Cobb M.D. PCP - General 02/19/17 02/20/[address] [place] [phone] documented as of this encounter
--- OUTSIDE RECORDS SUMMARY | 2022-08-19 10:26 | XMS_ITS | Encounter Summary ---
:1960 Author Organization [facility] Address [address] [place] [address] Care Team Providers Name Role Phone Cintia Cobb M.D. Primary Care Provider [phone] Reason for Referral MRI/CAT/PET Scan (Routine) - Closed Specialty Diagnoses / Procedures Referred By Contact Refer red To Contact Radiology Diagnoses Pain Low Back Unspecified Kacie Huerta APRN, [facility] [place] [facility] Procedures CT Lumbar Spine without IV Contrast C.N.P., D.N.P. [address] [place] [address] Referral ID Status Reason Start Date Expiration Date Visits Requ ested Visits Authorized [id number] Closed 08/22/2020 08/22/2021 1 1 AT CHIEF Reason for Visit MRI/CAT/PET Scan (Routine) - Closed Specialty Diagnoses / Procedures Referred By Contact Refer red To Contact Radiology Diagnoses Pain Low Back Unspecified [facility] [place] [facility] Procedures CT Lumbar Spine without IV Contrast C.N.P., D.N.P. [address] [place] [phone] Referral ID Status Reason Start Date Expiration Date Visits Requ ested Visits Authorized [id number] Closed 08/22/2020 08/22/2021 1 1 Encounter Details Date Type Department Care Team Description 08/30/2020 Hospital Encounter Department of Radiology Otf Huerta, Pain Low Back in [place], [place], C.N.P., [place] D.N.P. [address] [phone] Social History Tobacco Use [...] for this WITHOUT IV (most inpatients PM REPEAT CHIEF procedure a re in CONTRAST and all the results outpatients) section. documented in this encounter Results CT Lumbar Spine without IV Contrast (08/30/2020 1:14 PM REPEAT CHIEF) Anatomical Region Laterality Modality Lumbar Spine, Neuroradiology RST LOS, Neuroradiology N/A Computed Tomography ARZ LOS, Neuroradiology FLA [facility] Specimen (Source) Anatomical Collection Method Collection Time Re ceived Time Location / / Volume Laterality 08/30/2020 1:24 PM REPEAT CHIEF Impressions 08/30/2020 1:32 PM REPEAT CHIEF Spondylotic changes, as detailed level by level, includes moderate to severe spinal canal narrowing at L3-L 4 and moderate foraminal/extraforaminal narrowing on the left at L5-S1. Narrative 08/30/2020 1:32 PM REPEAT CHIEF EXAM: CT LUMBAR SPINE WITHOUT IV CONTRAST [...] documented as of this encounter Care Teams Ice Hockey Coach Relationship Specialty Start Date End Date Cintia Cobb M.D. PCP - General 02/19/17 02/20/[address] [phone] documented as of this encounter
--- OUTSIDE RECORDS SUMMARY | 2022-08-19 10:26 | XMS_ITS | Encounter Summary ---
:1960 Author Organization [facility] Address [address] [place] [address] Care Team Providers Name Role Phone Cintia Cobb M.D. Primary Care Provider [phone] Encounter Details Date Type Department Care Team Description 04/26/2020 Orders Only Department of [facility] Angélica Cobb Medicine, Jose Daniel Piper M.D. Clinic, in [address] [address] [place], [place] [phone] (W ork) [phone] [phone] Social History Tobacco Use Types Packs/Day Years [...] documented as of this encounter Care Teams Informatica Developer Relationship Specialty Start Date End Date Cintia Cobb M.D. PCP - General 02/19/17 02/20/[address] [place] [phone] documented as of this encounter
--- OUTSIDE RECORDS SUMMARY | 2022-08-19 10:26 | XMS_ITS | Encounter Summary ---
:1960 Author Organization [facility] Address [address] [place] [address] Care Team Providers Name Role Phone Cintia Cobb M.D. Primary Care Provider [phone] Encounter Details Date Type Department Care Team Description 04/06/2020 Clinical Communication [facility] Jose Daniel Piper M.D. [address] [address] [place], [place] [phone] (Work) [phone] Social History Tobacco Use Types Packs/Day Years Used Date Smoking Tobacco: Never Smokeless Tobacco: Never Alcohol Use Standard Drinks/Week Comments No 0 (1 standard drink = 0.6 oz pure alcoho l) Sex Assigned at Date Recorded Not on file documented as of this encounter Miscellaneous Notes Telephone Encounter - Eli Enrique Abby - 04/06/2020 3:04 PM CDT ([facility] and [facility] locations only: If the patient is not having symptoms and is requesting COVID-19 Nasal Swab testing only, use the process listed in the COVID-19 Patient Requesting COVID PCR Test OTG COVID-19 [place] Patient Requesting COVID PCR Test). 1. Do [...] documented as of this encounter Care Teams Buyer Internship Relationship Specialty Start Date End Date Cintia Cobb M.D. PCP - General 02/19/17 02/20/[address] [place] [phone] documented as of this encounter
--- OUTSIDE RECORDS SUMMARY | 2022-08-19 10:26 | XMS_ITS | Encounter Summary ---
:1960 Author Organization [facility] Address [address] [place] [address] Care Team Providers Name Role Phone Cintia Cobb M.D. Primary Care Provider [phone] Encounter Details Date Type Department Care Team Description 04/12/2020 Orders Only Department of Kacie Huerta, Primary Ost eoarthritis Orthopedic Surgery in [facility], C.N.P., Lumba r Spine (Primary [place], [place] D.N.P. Dx) [address] [phone] Social History Tobacco Use Types Packs/Day Years [...] as of this encounter Care Teams Senior Manufacturing Test Engineer Relationship Specialty Start Date End Date Cintia Cobb M.D. PCP - General 02/19/17 02/20/[address] [place] [phone] documented as of this encounter
--- OUTSIDE RECORDS SUMMARY | 2022-08-19 10:26 | XMS_ITS | Encounter Summary ---
:1960 Author Organization [facility] Address [address] [place] [address] Care Team Providers Name Role Phone Cintia Cobb M.D. Primary Care Provider [phone] Encounter Details Date Type Department Care Team Description 10/09/2020 Orders Only Department of [facility] Angélica Cobb Medicine, Jose Daniel Piper M.D. Clinic, [address] [address] [place], [place] [phone] (W ork) [phone] Social History Tobacco Use Types Packs/Day Years [...] documented as of this encounter Care Teams Gericare Aide Teacher Relationship Specialty Start Date End Date Cintia Cobb M.D. PCP - General 02/19/17 02/20/[address] [place] [phone] documented as of this encounter
--- OUTSIDE RECORDS SUMMARY | 2022-08-19 10:26 | XMS_ITS | Encounter Summary ---
:1960 Author Organization [facility] Address [address] [place] [address] Care Team Providers Name Role Phone Cintia Cobb M.D. Primary Care Provider [phone] Reason for Visit Reason Comments D5 and Colon Screen Encounter Details Date Type Department Care Team Description 10/09/2020 Clinical Department of [place] D5 and Colon S creen Communication Family MedicineMin Megan [place] S, M.D. Clinic, in [address] [address] [place], [place] [phone] (Work) [phone] Social History Tobacco Use Types Packs/Day Years Used Date Smoking Tobacco: Never Smokeless Tobacco: Never Alcohol Use Standard Drinks/Week Comments No 0 (1 standard drink = 0.6 oz pure alcoho l) Sex Assigned at Date Recorded Not on file documented as of this encounter Miscellaneous Notes Telephone Encounter - Xochitl Hackett L.PPiliN. - 10/09/2020 7:48 AM OIL PAINT SHADER In reviewing the patient's diabetic quality metrics, [...] his D5 quality measures not met. (BR) PAINT SHADER documented in this encounter Plan of Treatment Not on filedocumented as of this encounter Visit Diagnoses Not on filedocumented in this encounter Additional Health Concerns Assessment Noted Time PHQ-9 Depression Total Score: 18 02/14/2013 9:53 AM CD T documented as of this encounter Care Teams Contract Engineer Relationship Specialty Start Date End Date Cintia Cobb M.D. PCP - General 02/19/17 02/20/[address] [place] [phone] documented as of this encounter
--- OUTSIDE RECORDS SUMMARY | 2022-08-19 10:26 | XMS_ITS | Encounter Summary ---
:1960 Author Organization [facility] Address [address] [place] [address] Care Team Providers Name Role Phone Cintia Cobb M.D. Primary Care Provider Reason for Visit Reason Comments Med Refill Encounter Details Date Type Department Care Team Description 09/20/2020 Refill Department of Infusion Cintia Cobb Med Refill Therapy in Feliz Arellano M.D. [address] [phone] (Wo rk) Social History Tobacco Use Types [...] documented as of this encounter Care Teams Gum Scoring Machine Operator Relationship Specialty Start Date End Date Cintia Cobb M.D. PCP - General 02/19/17 02/20/[address] [place] [phone] documented as of this encounter
--- OUTSIDE RECORDS SUMMARY | 2022-08-19 10:26 | XMS_ITS | Encounter Summary ---
:1960 Author Organization [facility] Address [address] [place] [address] Care Team Providers Name Role Phone Cintia Cobb M.D. Primary Care Provider [phone] Encounter Details Date Type Department Care Team Description 08/07/2020 Hospital Encounter Department of Radiology Otf Huerta, Pain Hip Left in [facility], C.N.P.[place], [place] D.N.P. [address] [place] [phone] Social History Tobacco Use Types Packs/Day [...] s for this VIEWS (most inpatients AM MEAT DEPARTMENT MANAGER procedure a re in and all the results outpatients) section. documented in this encounter Results DX Hip Left 2-3 Views (08/07/2020 11:00 AM MEAT DEPARTMENT MANAGER) Anatomical Region Laterality Modality Lower Extremity, Hip, Musculoskeletal RST LOS, Left Digital Radiography Musculoskeletal ARZ LOS, Muskuloskeletal FLA LOS Specimen (Source) Anatomical Collection Method Collection Time Re ceived Time Location / / Volume Laterality 08/07/2020 11:28 AM MEAT DEPARTMENT MANAGER Impressions 08/07/2020 11:29 AM MEAT DEPARTMENT MANAGER Postoperative changes proximal left femoral intramedullary rodding screw fixation across the intertrochanteric fr acture. Hardware is intact. No evidence of acute osseous abnormality. Mild degen erative changes of the bilateral hips. Atherosclerotic vascular disease. March 092019 comparison. Narrative 08/07/2020 11:29 AM MEAT DEPARTMENT MANAGER EXAM: DX HIP LEFT 2-3 VIEWS [...] this encounter Care Teams Fish And Wildlife Scientific Aid Relationship Specialty Start Date End Date Cintia Cobb M.D. PCP - General 02/19/17 02/20/[address] [phone] documented as of this encounter
--- OUTSIDE RECORDS SUMMARY | 2022-08-19 10:26 | XMS_ITS | Encounter Summary ---
:1960 Author Organization [facility] Address [address] [place] [address] Care Team Providers Name Role Phone Cintia Cobb M.D. Primary Care Provider Encounter Details Date Type Department Care Team Description 07/04/2020 Orders Only [facility] [address] M.D . [address] [place] [phone] [place], [place] [phone] (Wo rk) Social History Tobacco Use [...] as of this encounter Care Teams Quality Analyst/Technical Writer Relationship Specialty Start Date End Date Cintia Cobb M.D. PCP - General 02/19/17 02/20/[address] [place] [phone] documented as of this encounter
--- OUTSIDE RECORDS SUMMARY | 2022-08-19 10:26 | XMS_ITS | Encounter Summary ---
:1960 Author Organization [facility] Address [address] [place] [address] Care Team Providers Name Role Phone Cintia Cobb M.D. Primary Care Provider [phone] Reason for Referral MRI/CAT/PET Scan (Routine) - Closed Specialty Diagnoses / Procedures Referred By Contact Refer red To Contact Radiology Diagnoses Pain Hip Left Kacie Huerta APRN, [facility] Region Procedures CT Hip Left without IV Contrast C.N.P., D.N.P. [address] [place] [address] Referral ID Status Reason Start Date Expiration Date Visits Requ ested Visits Authorized [id number] Closed 08/22/2020 08/22/2021 1 1 CIATE STORE DIRECTOR Reason for Visit MRI/CAT/PET Scan (Routine) - Closed Specialty Diagnoses / Procedures Referred By Contact Refer red To Contact Radiology Diagnoses Pain Hip Left Kacie Huerta APRN, [facility] [place] Region Procedures CT Hip Left without IV Contrast C.N.P., D.N.P. [address] [place] [address] Referral ID Status Reason Start Date Expiration Date Visits Requ ested Visits Authorized [id number] Closed 08/22/2020 08/22/2021 1 1 Encounter Details Date Type Department Care Team Description 08/30/2020 Hospital Encounter Department of Radiology Albert Huertaeric devon Oakes, Pain Hip Left in [place], [place], C.N.P., [place] D.N.P. [address] [place] [id number] Social History Tobacco Use Types Packs/Day [...] r this WITHOUT IV (most inpatients PM ASSOCIATE STORE DIRECTOR procedure a re in CONTRAST and all the results outpatients) section. documented in this encounter Results CT Hip Left without IV Contrast (08/30/2020 1:21 PM ASSOCIATE STORE DIRECTOR) Anatomical Region Laterality Modality Lower Extremity, Hip, Musculoskeletal RST LOS, Left Computed Tomography Musculoskeletal ARZ LOS, Muskuloskeletal FLA LOS Specimen (Source) Anatomical Collection Method Collection Time Re ceived Time Location / / Volume Laterality 08/30/2020 1:33 PM ASSOCIATE STORE DIRECTOR Impressions 08/30/2020 1:38 PM ASSOCIATE STORE DIRECTOR Intramedullary ovidio and screw fixation across a healed intertrochanteric fracture of the left f emur; hardware appears well seated by CT. Mild left hip joint effusion and/or synovitis. Narrative 08/30/2020 1:38 PM ASSOCIATE STORE DIRECTOR EXAM: CT HIP LEFT WITHOUT IV CONTRAST [...] documented as of this encounter Care Teams Paint Coating Machine Operator Relationship Specialty Start Date End Date Cintia Cobb M.D. PCP - General 02/19/17 02/20/[address] [place] [phone] documented as of this encounter
--- OUTSIDE RECORDS SUMMARY | 2022-08-19 10:26 | XMS_ITS | Encounter Summary ---
:1960 Author Organization [facility] Address [address] [place] [address] Care Team Providers Name Role Phone Cintia Cobb M.D. Primary Care Provider [phone] Reason for Visit Reason Comments DMV certificate Encounter Details Date Type Department Care Team Description 04/26/2020 Clinical Communication Department of [place] DMV certificate Family MedicineMin [place] S, M.D. Clinic, in [address] [address] [place], [place] [phone] (Work) [phone] Social History Tobacco Use Types Packs/Day Years [...] signed by her and placed at the dental front office assistant for pick-up. Certificate still needs to be completed by pt (ie. DL number). Certificate at dental front office assistant awaiting pt pick-up. documented in this encounter Plan of Treatment Not on filedocumented as of this encounter Visit Diagnoses Not on filedocumented in this encounter Additional Health Concerns Assessment Noted Time PHQ-9 Depression Total Score: 18 02/14/2013 9:53 AM CD T documented as of this encounter Care Teams Gore Maker Relationship Specialty Start Date End Date Cintia Cobb M.D. PCP - General 02/19/17 02/20/[address] [address] documented as of this encounter
--- OUTSIDE RECORDS SUMMARY | 2022-08-19 10:26 | XMS_ITS | Encounter Summary ---
:1960 Author Organization [facility] Address [address] [place] [address] Care Team Providers Name Role Phone Cintia Cobb M.D. Primary Care Provider [phone] Reason for Referral Outpatient (Routine) - Closed Specialty Diagnoses / Procedures Referred By Contact Refer red To Contact Diagnoses Trochanteric Bursitis Left Hip Kacie Huerta, [place], [facility] Region Procedures trp-mqwl-fppyumwz-elbow arthrocentesis: L greater troch bursa C.N.P., D.N.P. [address] [place] [address] Referral ID Status Reason Start Date Expiration Date Visits Requ ested Visits Authorized [id number] Closed 08/07/2020 08/07/2021 1 1 E CLASSIFIER Reason for Visit Reason Comments Pain Appointment Request (Routine) - Closed Specialty Diagnoses / Procedures Referred By Contact Refer red To Contact Orthopedic Surgery Referral ID Status Reason Start Date Expiration Date Visits Requ ested Visits Authorized [id number] Closed 08/07/2020 08/07/2021 1 1 Encounter Details Date Type Department Care Team Description 08/07/2020 Office Visit Department of Kacie Huerta, Pain Hip Le ft (Primary Dx); Orthopedic Surgery in [place] C.N.PPili, Troch anteric Bursitis Left Hip Fidel CondonN.P. [place] [id number] [address] [place] [phone] Social History [...] should be repeated prior to that visit. E CLASSIFIER documented in this encounter Procedure Notes Aleksandra Garcia L.P.N. - 08/07/2020 10:30 AM CSTAssociated Order(s): doz-ibco-iszuwlej-elbow arthrocentesis: L greater troch bursa Post-Procedure Diagnose(s): [...] dressing care and follow-up with ordering provider E CLASSIFIER documented in this encounter Plan of Treatment Not on filedocumented as of this encounter Procedures Procedure Name Priority Date/Time Associated Diagnosis Comme nts HI ARTHCS ASP/INJ Routine 08/07/2020 10:30 Trochanteric Bursit is Results for this MJR JT WO US AM SHADE CLASSIFIER Left Hip procedure are i n the results section. documented in this encounter Results DX Hip Left 2-3 Views (08/07/2020 11:00 AM SHADE CLASSIFIER) Anatomical Region Laterality Modality Lower Extremity, Hip, Musculoskeletal RST LOS, Left Digital Radiography Musculoskeletal ARZ LOS, Muskuloskeletal FLA LOS Specimen (Source) Anatomical Collection Method Collection Time Re ceived Time Location / / Volume Laterality 08/07/2020 11:28 AM SHADE CLASSIFIER Impressions 08/07/2020 11:29 AM SHADE CLASSIFIER Postoperative changes proximal left femoral intramedullary rodding screw fixation across the intertrochanteric fr acture. Hardware is intact. No evidence of acute osseous abnormality. Mild degen erative changes of the bilateral hips. Atherosclerotic vascular disease. March 092019 comparison. Narrative 08/07/2020 11:29 AM SHADE CLASSIFIER EXAM: DX HIP LEFT 2-3 VIEWS Procedure [...] C.N.PPili, D.N.P. IMG DIAGNOSTIC IMAG ING PROCEDURES HI ARTHCS ASP/INJ MJR JT WO US (08/07/2020 10:30 AM SHADE CLASSIFIER) Narrative MMODAL - 08/07/2020 10:30 AM SHADE CLASSIFIER Aleksandra Garcia L.P.N. ? 08/08/2020 ??9:00 AM [...] (1 %) injection Given 08/07/2020 11:35 AM SHADE CLASSIFIER 5 mL 5 mL (XYLOCAINE) 5 mL, infiltration, One-Time Injection, Starting on Thu08/07/20 at 1135, For 1 dose methylPREDNISolone acetate injection 80 mg Given 08/07/2020 11:3 5 AM SHADE CLASSIFIER 80 mg (DEPO-Medrol) 80 mg, intra-articular, One-Time Injection, Starting on Thu08/07/20 at 1135, For 1 dose documented in this encounter Additional Health Concerns Assessment Noted Time PHQ-9 Depression Total Score: 18 02/14/2013 9:53 AM CD T documented as of this encounter Care Teams Dive Supervisor Relationship Specialty Start Date End Date Cintia Cobb M.D. PCP - General 02/19/17 02/20/[address] [place] [phone] documented as of this encounter
--- OUTSIDE RECORDS SUMMARY | 2022-08-19 10:26 | XMS_ITS | Encounter Summary ---
:1960 Author Organization [facility] Address [address] [place] [address] Care Team Providers Name Role Phone Cintia Cobb M.D. Primary Care Provider [phone] Encounter Details Date Type Department Care Team Description 04/12/2020 Clinical Communication Department of John Norman , Orthopedic Surgery in [place] [address] [phone] [phone] Social History Tobacco Use Types Packs/Day Years [...] of this encounter Care Teams Director Of Institutional Giving Relationship Specialty Start Date End Date Cintia Cobb M.D. PCP - General 02/19/17 02/20/[address] [address] documented as of this encounter
--- OUTSIDE RECORDS SUMMARY | 2022-08-19 10:27 | XMS_ITS | Encounter Summary ---
:1960 Author Organization [facility] Address [address] [place] [address] Care Team Providers Name Role Phone Cintia Cobb M.D. Primary Care Provider Reason for Visit Reason Comments Appointment Encounter Details Date Type Department Care Team Description 11/29/2019 Clinical Communication Department of Kacie Huerta A ppointment Orthopedic Surgery in [facility] [place], [place] D.N.P. [address] [facility] [address] [place] [phone] Social History Tobacco Use Types Packs/Day Years [...] with Kacie Huerta DNP on 12/27/2019 in [place] has been changed to a phone consultation [...] documented as of this encounter Care Teams Television Production Technician Relationship Specialty Start Date End Date Cintia Cobb M.D. PCP - General 02/19/17 02/20/[address] [place] [phone] documented as of this encounter
--- OUTSIDE RECORDS SUMMARY | 2022-08-19 10:27 | XMS_ITS | Encounter Summary ---
:1960 Author Organization [facility] Address [address] [place] [address] Care Team Providers Name Role Phone Cintia Cobb M.D. Primary Care Provider [phone] Encounter Details Date Type Department Care Team Description 04/06/2020 Hospital Encounter Department of Kacie Huerta, Pain Knee Left Radiology in [facility], [place], [place] D.N.P. [address] [place] [phone] Social History Tobacco Use Types Packs/Day [...] documented as of this encounter Care Teams Technical Coordinator Relationship Specialty Start Date End Date Cintia Cobb M.D. PCP - General 02/19/17 02/20/[phone] [place] [phone] documented as of this encounter
--- OUTSIDE RECORDS SUMMARY | 2022-08-19 10:27 | XMS_ITS | Encounter Summary ---
:1960 Author Organization [facility] Address [address] [place] [address] Care Team Providers Name Role Phone Cintia Cobb M.D. Primary Care Provider [phone] Reason for Visit Reason Comments Quality Metrics - Colon CA screen Encounter Details Date Type Department Care Team Description 02/07/2020 Clinical Department of [place] Quality Awesome Maps s - Communication Family Medicine, Cintia Copeland C A screen Jose Daniel Piper M.D. Clinic, in [address] [address] [place], [place] [phone] (Work) [phone] Social History Tobacco Use Types Packs/Day Years [...] documented as of this encounter Care Teams Instruction Assistant Principal Relationship Specialty Start Date End Date Cintia Cobb M.D. PCP - General 02/19/17 02/20/[phone] [place] [phone] documented as of this encounter
--- OUTSIDE RECORDS SUMMARY | 2022-08-19 10:27 | XMS_ITS | Encounter Summary ---
:1960 Author Organization [facility] Address [address] [place] [address] Care Team Providers Name Role Phone Cintia Cobb M.D. Primary Care Provider [phone] Reason for Visit Physical Therapy (Routine) - Canceled Specialty Diagnoses / Procedures Referred By Contact Refer red To Contact Diagnoses Follow Up Examination Postoperative Visit Fracture Hip Intertrochanteric Closed Initial Left (HCC) Kacie Huerta APRN, [facility] Procedures PT Ongoing treatment C.N.P., D.N.P. [address] [place] [address] Referral ID Status Reason Start Date Expiration Date Visits V isits Requested Authorized [id number] Canceled 10/13/2019 10/12/2020 99 99 Encounter Details Date Type Department Care Team Description 11/25/2019 Clinical Department of Kacie Huerta APRN, C.N.P., D.N.P. [address] [place] [phone] Follow Up Examination Postoperative Visi t; Support Rehabilitation Lesli Dias P.TPili [address] [place] [phone] Fracture Hip Intertrochanteric Closed In itial Left (HCC) Services in [address] [place] [address] Social History Tobacco Use Types Packs/Day Years [...] Onset Date: 08/12/19 Payor: [facility] CARE / Plan: [facility] BLUE PLUS HMO / Product Type: [...] P.T. Department of Rehabilitation Services in [address] [address] Dept: [phone] documented in this encounter Plan of Treatment Not on filedocumented as of this encounter Visit Diagnoses Diagnosis Follow Up Examination Postoperative Visi t Fracture Hip Intertrochanteric Closed In itial Left (HCC) documented in this encounter Additional Health Concerns Assessment Noted Time PHQ-9 Depression Total Score: 18 02/14/2013 9:53 AM CD T documented as of this encounter Care Teams Machine I Engraver Relationship Specialty Start Date End Date Cintia Cobb M.D. PCP - General 02/19/17 02/20/[address] [place] [address], [place] [address] documented as of this encounter
--- OUTSIDE RECORDS SUMMARY | 2022-08-19 10:27 | XMS_ITS | Encounter Summary ---
:1960 Author Organization [facility] Address [address] [place] [address] Care Team Providers Name Role Phone Cintia Cobb M.D. Primary Care Provider [phone] Encounter Details Date Type Department Care Team Description 04/06/2020 Hospital Encounter Department of Kacie Huerta Fract ure Hip Closed Radiology in [facility] C.N.P., Initial Left (HCC) [place], [place] D.N.P. [address] [place] [phone] Social History Tobacco Use Types Packs/Day [...] documented as of this encounter Care Teams Drawstring Knotter Relationship Specialty Start Date End Date Cintia Cobb M.D. PCP - General 02/19/17 02/20/22 [address] [address] [place] [address] documented as of this encounter
--- OUTSIDE RECORDS SUMMARY | 2022-08-19 10:27 | XMS_ITS | Encounter Summary ---
:1960 Author Organization [facility] Address [address] [place] [address] Care Team Providers Name Role Phone Cintia Cobb M.D. Primary Care Provider [phone] Reason for Visit Physical Therapy (Routine) - Canceled Specialty Diagnoses / Procedures Referred By Contact Refer red To Contact Diagnoses Follow Up Examination Postoperative Visit Fracture Hip Intertrochanteric Closed Initial Left (HCC) Kacie Huerta APRN, [facility] Procedures PT Ongoing treatment C.N.P., D.N.P. [address] [place] [address] Referral ID Status Reason Start Date Expiration Date Visits V isits Requested Authorized [id number] Canceled 10/13/2019 10/12/2020 99 99 Encounter Details Date Type Department Care Team Description 11/15/2019 Clinical Department of Kacie Huerta APRN, C.N.P., D.N.P. [address] [place] [phone] Follow Up Examination Postoperative Visi t; Support Rehabilitation Lesli Dias P.TPili [address] [place] [phone] Fracture Hip Intertrochanteric Closed In itial Left (HCC) Services in [address] [place] [address] Social History Tobacco Use Types Packs/Day Years [...] [facility] CARE / Plan: [facility] BLUE PLUS HMO / Product [...] P.T. Department of Rehabilitation Services in [address] [address] Dept: [phone] documented in this encounter Plan of Treatment Not on filedocumented as of this encounter Visit Diagnoses Diagnosis Follow Up Examination Postoperative Visi t Fracture Hip Intertrochanteric Closed In itial Left (HCC) documented in this encounter Additional Health Concerns Assessment Noted Time PHQ-9 Depression Total Score: 18 02/14/2013 9:53 AM CD T documented as of this encounter Care Teams Armored Machine Operator Relationship Specialty Start Date End Date Cintia Cobb M.D. PCP - General 02/19/17 02/20/[address] [place] [phone] documented as of this encounter
--- OUTSIDE RECORDS SUMMARY | 2022-08-19 10:27 | XMS_ITS | Encounter Summary ---
:1960 Author Organization [facility] Address [address] [place] [address] Care Team Providers Name Role Phone Cintia Cobb M.D. Primary Care Provider [phone] Encounter Details Date Type Department Care Team Description 11/02/2019 Orders Only Department of [facility], Jose Daniel Piper M.D. Initial Left (HCC) [facility], [place] [address] (Primary Dx) [address] [address] [place], [place] [phone] (W ork) [phone] Social History Tobacco Use Types Packs/Day Years Used Date Smoking Tobacco: Never Smokeless Tobacco: Never Alcohol Use Standard Drinks/Week Comments No 0 (1 standard drink = 0.6 oz pure alcoho l) Sex Assigned at Date Recorded Not on file documented as of this encounter Plan of Treatment Not on filedocumented as of this encounter Results DX Hip Left 2-3 Views (11/07/2019 2:58 PM STUNT PERFORMER) Anatomical Region Laterality Modality Lower Extremity, Hip, Musculoskeletal RST LOS, Left Digital Radiography Musculoskeletal ARZ LOS, Muskuloskeletal FLA LOS Specimen (Source) Anatomical Collection Method Collection Time Re ceived Time Location / / Volume Laterality 11/07/2019 3:14 PM STUNT PERFORMER Impressions 11/07/2019 3:15 PM STUNT PERFORMER Postop changes prior IM ovidio, nail fixation [...] Hardware is intact Narrative 11/07/2019 3:15 PM STUNT PERFORMER EXAM: DX HIP LEFT 2-3 VIEWS COMPARISON: [...] documented as of this encounter Care Teams Highway Painter Relationship Specialty Start Date End Date Cintia Cobb M.D. PCP - General 02/19/17 02/20/[address] [place] [phone] documented as of this encounter
--- OUTSIDE RECORDS SUMMARY | 2022-08-19 10:27 | XMS_ITS | Encounter Summary ---
:1960 Author Organization [facility] Address [address] [place] [address] Care Team Providers Name Role Phone Citnia Cobb M.D. Primary Care Provider [phone] Reason for Visit Physical Therapy (Routine) - Canceled Specialty Diagnoses / Procedures Referred By Contact Refer red To Contact Diagnoses Follow Up Examination Postoperative Visit Fracture Hip Intertrochanteric Closed Initial Left (HCC) Kacie Huerta APRN, [facility] Procedures PT Ongoing treatment C.N.P., D.N.P. [address] [place] [phone] Referral ID Status Reason Start Date Expiration Date Visits V isits Requested Authorized [id number] Canceled 10/13/2019 10/12/2020 99 99 Encounter Details Date Type Department Care Team Description 11/17/2019 Clinical Department of Kacie Huerta APRN, C.N.P., D.N.P. [address] [place] [phone] Follow Up Examination Postoperative Visi t; Support Rehabilitation Lesli Dias P.TPili [address] [place] [phone] Fracture Hip Intertrochanteric Closed In itial Left (HCC) Services in [address] [place] [address] Social History Tobacco Use Types Packs/Day Years [...] [facility] CARE / Plan: [employer] BLUE PLUS HMO [...] P.T. Department of Rehabilitation Services in [address] [address] Dept: [phone] documented in this encounter Plan of Treatment Not on filedocumented as of this encounter Visit Diagnoses Diagnosis Follow Up Examination Postoperative Visi t Fracture Hip Intertrochanteric Closed In itial Left (HCC) documented in this encounter Additional Health Concerns Assessment Noted Time PHQ-9 Depression Total Score: 18 02/14/2013 9:53 AM CD T documented as of this encounter Care Teams Electrical Controls Technician Relationship Specialty Start Date End Date Cintia Cobb M.D. PCP - General 02/19/17 02/20/[address] [place] [phone] documented as of this encounter
--- OUTSIDE RECORDS SUMMARY | 2022-08-19 10:27 | XMS_ITS | Encounter Summary ---
:1960 Author Organization [facility] Address [address] [place] [address] Care Team Providers Name Role Phone Cintia Cobb M.D. Primary Care Provider [phone] Reason for Visit Reason Comments PT Progress Note Encounter Details Date Type Department Care Team Description 01/13/2020 Clinical Department of [facility], PT Progress No te Communication Rehabilitation Lesli Oakes Services in [address], [address] [place] [phone] Social History Tobacco Use Types Packs/Day Years [...] as of this encounter Care Teams Senior Tax Specialist Relationship Specialty Start Date End Date Cintia Cobb M.D. PCP - General 02/19/17 02/20/[address] [place] [phone] documented as of this encounter
--- OUTSIDE RECORDS SUMMARY | 2022-08-19 10:27 | XMS_ITS | Encounter Summary ---
:[address] [facility] Address [address] [place] [address] Care Team Providers Name Role Phone Cintia Cobb M.D. Primary Care Provider [phone] Encounter Details Date Type Department Care Team Description 01/11/2020 Hospital Encounter Department of John Norman Up Examination Radiology in [place] M.D. Postoperative Visit [address] [phone] Social History Tobacco Use [...] as of this encounter Care Teams Special Deputy Sheriff Relationship Specialty Start Date End Date Cintia Cobb M.D. PCP - General 02/19/17 02/20/[address] [phone] documented as of this encounter
--- OUTSIDE RECORDS SUMMARY | 2022-08-19 10:27 | XMS_ITS | Encounter Summary ---
:1960 Author Organization [facility] Address [address] [place] [address] Care Team Providers Name Role Phone Cintia Cobb M.D. Primary Care Provider [phone] Reason for Visit Reason Onset Date Comments diabetic supplies 11/09/2019 Encounter Details Date Type Department Care Team Description 11/09/2019 Clinical Communication Department of [place] [facility] [place] supplies Family MedicineMin Megan [place] S, M.D. Clinic, in [address] [address] [place], [place] [phone] (Work) [phone] Social History Tobacco Use Types Packs/Day Years Used Date Smoking Tobacco: Never Smokeless Tobacco: Never Alcohol Use Standard Drinks/Week Comments No 0 (1 standard drink = 0.6 oz pure alcoho l) Sex Assigned at Date Recorded Not on file documented as of this encounter Miscellaneous Notes Telephone Encounter - Cintia Cobb M.D. - 11/09/2019 9:12 PM LANDSCAPE SPECIALIST Script sent. SCAPE SPECIALIST Telephone Encounter - Aminata Hill L.PPiliNPili - 11/09/2019 2:22 PM LANDSCAPE SPECIALIST Pharmacy called stating they received a prescription for test strips but also need an order for lancets and meter. Orders pended to PCP SCAPE SPECIALIST documented in this encounter Plan of Treatment Not on filedocumented as of this encounter Visit Diagnoses Not on filedocumented in this encounter Additional Health Concerns Assessment Noted Time PHQ-9 Depression Total Score: 18 02/14/2013 9:53 AM CD T documented as of this encounter Care Teams Collections Assistant Relationship Specialty Start Date End Date Cintia Cobb M.D. PCP - General 02/19/17 02/20/[address] [place] [phone] documented as of this encounter
--- OUTSIDE RECORDS SUMMARY | 2022-08-19 10:27 | XMS_ITS | Encounter Summary ---
:1960 Author Organization [facility] Address [address] [place] [address] Care Team Providers Name Role Phone Cintia Cobb M.D. Primary Care Provider [phone] Reason for Visit Physical Therapy (Routine) - Canceled Specialty Diagnoses / Procedures Referred By Contact Refer red To Contact Diagnoses Follow Up Examination Postoperative Visit Fracture Hip Intertrochanteric Closed Initial Left (HCC) Kacie Huerta APRN, [facility] Procedures PT Ongoing treatment C.N.P., D.N.P. [address] [place] [phone] Referral ID Status Reason Start Date Expiration Date Visits V isits Requested Authorized [id number] Canceled 10/13/2019 10/12/2020 99 99 Encounter Details Date Type Department Care Team Description 01/18/2020 Clinical Department of Kacie Huerta APRN, C.N.P., D.N.P. [address] [place] [phone] Follow Up Examination Postoperative Visi t; Support Rehabilitation Lesli Dias P.TPili [address] [place] [phone] Fracture Hip Intertrochanteric Closed In itial Left (HCC) Services in [address] [place] [address] Social History Tobacco Use Types Packs/Day Years [...] [facility] CARE / Plan: [facility] [...] P.T. Department of Rehabilitation Services in [address] [address] Dept: [phone] documented in this encounter Plan of Treatment Not on filedocumented as of this encounter Visit Diagnoses Diagnosis Follow Up Examination Postoperative Visi t Fracture Hip Intertrochanteric Closed In itial Left (HCC) documented in this encounter Additional Health Concerns Assessment Noted Time PHQ-9 Depression Total Score: 18 02/14/2013 9:53 AM CD T documented as of this encounter Care Teams Collar Closer Lockstitch Relationship Specialty Start Date End Date Cintia Cobb M.D. PCP - General 02/19/17 02/20/[address] [place] [phone] documented as of this encounter
--- OUTSIDE RECORDS SUMMARY | 2022-08-19 10:27 | XMS_ITS | Encounter Summary ---
:1960 Author Organization [facility] Address [address] [place] [address] Care Team Providers Name Role Phone Cintia Cobb M.D. Primary Care Provider Reason for Visit Physical Therapy (Routine) - Closed Specialty Diagnoses / Procedures Referred By Contact Refer red To Contact Diagnoses Pain Shoulder Right [facility] Procedures PT Evaluate and treat Keely Piper [address] [place] [phone] Referral ID Status Reason Start Date Expiration Date Visits Requ ested Visits Authorized [id number] Closed 11/08/2019 11/07/2020 1 1 Encounter Details Date Type Department Care Team Description 01/25/2020 Comprehensive Visit Department of Song Cintia Jorgensen M.D. [address] [place] [phone] Pain Shoulder Rehabilitation Lesli Dias P.T. [address] [phone] Right Services in [address] [address] Social History Tobacco Use Types [...] eval and treat Onset Date: 08/12/19 Payor: [employer] [place] CARE / Plan: [employer] BLUE PLUS HMO / Product Type: Medicaid [...] Dias P.T. Department of Rehabilitation Services in [address] [address] Dept: [phone] documented in this encounter Plan of Treatment Not on filedocumented as of this encounter Visit Diagnoses Diagnosis Pain Shoulder Right documented in this encounter Additional Health Concerns Assessment Noted Time PHQ-9 Depression Total Score: 18 02/14/2013 9:53 AM CD T documented as of this encounter Care Teams Emd Teacher Relationship Specialty Start Date End Date Cintia Cobb M.D. PCP - General 02/19/17 02/20/[address] [place] [phone] documented as of this encounter
--- OUTSIDE RECORDS SUMMARY | 2022-08-19 10:27 | XMS_ITS | Encounter Summary ---
:1960 Author Organization [facility] Address [address] [place] [address] Care Team Providers Name Role Phone Cintia Cobb M.D. Primary Care Provider [phone] Reason for Visit Physical Therapy (Routine) - Canceled Specialty Diagnoses / Procedures Referred By Contact Refer red To Contact Diagnoses Follow Up Examination Postoperative Visit Fracture Hip Intertrochanteric Closed Initial Left (HCC) Kacie Huerta APRN, [facility] Procedures PT Ongoing treatment C.N.P., D.N.P. [address] [place] [phone] Referral ID Status Reason Start Date Expiration Date Visits V isits Requested Authorized [id number] Canceled 10/13/2019 10/12/2020 99 99 Encounter Details Date Type Department Care Team Description 11/03/2019 Clinical Department of Kacie Huerta APRN, C.N.P., D.N.P. [address] [place] [phone] Follow Up Examination Postoperative Visi t; Support Rehabilitation Lesli Dias P.TPili [address] [place] [phone] Fracture Hip Intertrochanteric Closed In itial Left (HCC) Services in [address] [place] [address] Social History Tobacco Use Types Packs/Day Years [...] eval and treat Onset Date: 08/12/19 Payor: [facility] CARE / Plan: [facility] [email or web address] HMO / Product Type: Medicaid HMO / [...] TREATMENT Treatment today consisted of: Performed the [employer]-Fit total body ergometer x 8 minutes level [...] Dias P.T. Department of Rehabilitation Services in [address] [address] Dept: [phone] TEST EXAMINER documented in this encounter Plan of Treatment Not on filedocumented as of this encounter Visit Diagnoses Diagnosis Follow Up Examination Postoperative Visi t Fracture Hip Intertrochanteric Closed In itial Left (HCC) documented in this encounter Additional Health Concerns Assessment Noted Time PHQ-9 Depression Total Score: 18 02/14/2013 9:53 AM CD T documented as of this encounter Care Teams Senior Loan Processor Relationship Specialty Start Date End Date Cintia Cobb M.D. PCP - General 02/19/17 02/20/[address] [place] [phone] documented as of this encounter
--- OUTSIDE RECORDS SUMMARY | 2022-08-19 10:27 | XMS_ITS | Encounter Summary ---
:1960 Author Organization [facility] Address [address] [place] [address] Care Team Providers Name Role Phone Cintia Cobb M.D. Primary Care Provider Reason for Visit Reason Comments Xray request Encounter Details Date Type Department Care Team Description 04/06/2020 Clinical Communication Department of [facility] Yady donahue, Xray request Medicine, Jose Daniel Piper M.D. [facility], [address] [address] [place], [place] [phone] (Work) [phone] Social History Tobacco Use Types Packs/Day Years [...] as of this encounter Care Teams Night Assistant Relationship Specialty Start Date End Date Cintia Cobb M.D. PCP - General 02/19/17 02/20/[phone] [place] [phone] documented as of this encounter
--- OUTSIDE RECORDS SUMMARY | 2022-08-19 10:27 | XMS_ITS | Encounter Summary ---
:1960 Author Organization [facility] Address [address] [place] [address] Care Team Providers Name Role Phone Cintia Cobb M.D. Primary Care Provider [phone] Reason for Visit Physical Therapy (Routine) - Canceled Specialty Diagnoses / Procedures Referred By Contact Refer red To Contact Diagnoses Follow Up Examination Postoperative Visit Fracture Hip Intertrochanteric Closed Initial Left (HCC) Kacie Huerta APRN, [facility] Procedures PT Ongoing treatment C.N.P., D.N.P. [address] [place] [address] Referral ID Status Reason Start Date Expiration Date Visits V isits Requested Authorized [id number] Canceled 10/13/2019 10/12/2020 99 99 Encounter Details Date Type Department Care Team Description 12/19/2019 Virtual Visit Department of Kacie Huerta APRN, C.N.P., D.N.P. [address] [place] [phone] Follow Up Examination Postoperative Visi t; Rehabilitation Lesli Dias, P.TPili [address] [place] [phone] Fracture Hip Intertrochanteric Closed In itial Left (HCC) Services in [address] [place] [address] Social History Tobacco Use Types Packs/Day Years [...] [facility] CARE / Plan: [facility] [employer] [facility] HMO / Product Type: Medicaid HMO / [...] him. 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 Mild difficulty getting in/out of his [...] Dias P.T. Department of Rehabilitation Services in [address] [address] Dept: [phone] documented in this encounter Plan of Treatment Not on filedocumented as of this encounter Visit Diagnoses Diagnosis Follow Up Examination Postoperative Visi t Fracture Hip Intertrochanteric Closed In itial Left (HCC) documented in this encounter Additional Health Concerns Assessment Noted Time PHQ-9 Depression Total Score: 18 02/14/2013 9:53 AM CD T documented as of this encounter Care Teams House Wirer Relationship Specialty Start Date End Date Cintia Cobb M.D. PCP - General 02/19/17 02/20/[address] [place] [phone] documented as of this encounter
--- OUTSIDE RECORDS SUMMARY | 2022-08-19 10:27 | XMS_ITS | Encounter Summary ---
:1960 Author Organization [facility] Address [address] [place] [address] Care Team Providers Name Role Phone Cintia Cobb M.D. Primary Care Provider Reason for Visit Physical Therapy (Routine) - Canceled Specialty Diagnoses / Procedures Referred By Contact Refer red To Contact Diagnoses Follow Up Examination Postoperative Visit Fracture Hip Intertrochanteric Closed Initial Left (HCC) Kacie Huerta APRN, [facility] Procedures PT Ongoing treatment C.N.P., D.N.P. [address] [place] [phone] Referral ID Status Reason Start Date Expiration Date Visits V isits Requested Authorized [id number] Canceled 10/13/2019 10/12/2020 99 99 Encounter Details Date Type Department Care Team Description 11/23/2019 Clinical Department of Kacie Huerta APRN, C.N.P., D.N.P. [address] [place] [phone] Follow Up Examination Postoperative Visi t; Support Rehabilitation Lesli Dias P.TPili [address] [place] [phone] Fracture Hip Intertrochanteric Closed In itial Left (HCC) Services in [address] [place] [address] Social History Tobacco Use Types Packs/Day Years [...] Payor: [facility] CARE / Plan: [employer] BLUE PLUS HMO / Product Type: Medicaid HMO / No data recorded Epic Visit Count: 11 Patient comments: patient has no new complaints. OBJECTIVE Pain: Patient does have soreness at times. Continues to note hip abductor weakness. However this is improving significantly. TREATMENT Treatment today consisted of: Perform the [employer]-Fit Total body ergometer times 10 minutes at [...] P.T. Department of Rehabilitation Services in [address] [address] Dept: [phone] documented in this encounter Plan of Treatment Not on filedocumented as of this encounter Visit Diagnoses Diagnosis Follow Up Examination Postoperative Visi t Fracture Hip Intertrochanteric Closed In itial Left (HCC) documented in this encounter Additional Health Concerns Assessment Noted Time PHQ-9 Depression Total Score: 18 02/14/2013 9:53 AM CD T documented as of this encounter Care Teams Differential Repairer Relationship Specialty Start Date End Date Cintia Cobb M.D. PCP - General 02/19/17 02/20/[address] [place] [phone] documented as of this encounter
--- OUTSIDE RECORDS SUMMARY | 2022-08-19 10:27 | XMS_ITS | Encounter Summary ---
:1960 Author Organization [facility] Address [address] [place] [address] Care Team Providers Name Role Phone Cintia Cobb M.D. Primary Care Provider [phone] Reason for Visit Physical Therapy (Routine) - Canceled Specialty Diagnoses / Procedures Referred By Contact Refer red To Contact Diagnoses Follow Up Examination Postoperative Visit Fracture Hip Intertrochanteric Closed Initial Left (HCC) Kacie Huerta APRN, [facility] Procedures PT Ongoing treatment C.N.P., D.N.P. [address] [place] [phone] Referral ID Status Reason Start Date Expiration Date Visits V isits Requested Authorized [id number] Canceled 10/13/2019 10/12/2020 99 99 Encounter Details Date Type Department Care Team Description 02/01/2020 Clinical Department of Kacie Huerta APRN, C.N.P., D.N.P. [address] [place] [phone] Follow Up Examination Postoperative Visi t; Support Rehabilitation Lesli Dias P.TPili [address] [place] [phone] Fracture Hip Intertrochanteric Closed In itial Left (HCC) Services in [address] [place] [address] Social History Tobacco Use Types Packs/Day Years [...] [facility] CARE / Plan: [facility] BLUE PLUS HMO / Product [...] P.T. Department of Rehabilitation Services in [address] [address] Dept: [phone] documented in this encounter Plan of Treatment Not on filedocumented as of this encounter Visit Diagnoses Diagnosis Follow Up Examination Postoperative Visi t Fracture Hip Intertrochanteric Closed In itial Left (HCC) documented in this encounter Additional Health Concerns Assessment Noted Time PHQ-9 Depression Total Score: 18 02/14/2013 9:53 AM CD T documented as of this encounter Care Teams [employer] Founder Relationship Specialty Start Date End Date Cintia Cobb M.D. PCP - General 02/19/17 02/20/[address] [place] [phone] documented as of this encounter
--- OUTSIDE RECORDS SUMMARY | 2022-08-19 10:27 | XMS_ITS | Encounter Summary ---
:1960 Author Organization [facility] Address [address] [place] [address] Care Team Providers Name Role Phone Cintia Cobb M.D. Primary Care Provider [phone] Reason for Visit Reason Comments Communication Encounter Details Date Type Department Care Team Description 01/06/2020 Clinical Communication Department of Kacie Huerta C ommunication Orthopedic Surgery in [facility] [place], [place] D.N.P. [address] [facility] [address] [place] [phone] Social History Tobacco Use Types Packs/Day Years [...] as of this encounter Care Teams Security Patrol Driver Relationship Specialty Start Date End Date Cintia Cobb M.D. PCP - General 02/19/17 02/20/[phone] [place] [phone] documented as of this encounter
--- OUTSIDE RECORDS SUMMARY | 2022-08-19 10:27 | XMS_ITS | Encounter Summary ---
:1960 Author Organization [facility] Address [address] [place] [address] Care Team Providers Name Role Phone Cintia Cobb M.D. Primary Care Provider [phone] Reason for Referral Outpatient (Routine) - Closed Specialty Diagnoses / Procedures Referred By Contact Refer red To Contact Diagnoses Fracture Hip Closed Initial Left (HCC) Cintia Cobb [place] [facility] Procedures BMD Bone Density Spine Hips S, M.D. [address] [address] Referral ID Status Reason Start Date Expiration Date Visits Requ ested Visits Authorized [id number] Closed 11/08/2019 11/07/2020 1 1 TOANALYSIS TEACHER Reason for Visit Outpatient (Routine) - Closed Specialty Diagnoses / Procedures Referred By Contact Refer red To Contact Diagnoses Fracture Hip Closed Initial Left (HCC) Cintia Cobb [place] Procedures BMD Bone Density Spine Hips S, M.D. [address] [address] Referral ID Status Reason Start Date Expiration Date Visits Requ ested Visits Authorized [id number] Closed 11/08/2019 11/07/2020 1 1 Encounter Details Date Type Department Care Team Description 11/09/2019 Hospital Encounter Department of Song Fracture Hip Closed Radiology in [place], Cintia Initi al Left ([facility]) [place], [place] S, M.D. [address] [place], [place] [phone] Social History Tobacco Use Types Packs/Day Years [...] for this SPINE HIPS (most inpatients PM CRYPTOANALYSIS TEACHER Closed Initial procedure are in and all Left (HCC) the results outpatients) section. documented in this encounter Results BMD Bone Density Spine Hips (11/09/2019 3:05 PM CRYPTOANALYSIS TEACHER) Anatomical Region Laterality Modality Hip, Lumbar Spine, Nuclear Medicine RST LOS, N/A Radiographic Imaging Musculoskeletal ARZ LOS, Muskuloskeletal FLA LOS Specimen (Source) Anatomical Collection Method Collection Time Re ceived Time Location / / Volume Laterality 11/09/2019 3:29 PM CRYPTOANALYSIS TEACHER Impressions 11/09/2019 3:31 PM CRYPTOANALYSIS TEACHER Osteoporosis. Narrative 11/09/2019 3:31 PM CRYPTOANALYSIS TEACHER EXAM: BMD BONE DENSITY SPINE HIPS COMPARISON: None. Commissions Specialist/Model: [email or web address] FINDINGS: ?? LUMBAR SPINE L1-L4 included unless [...] BMD BONE DENSITY SPINE HIPS COMPARISON: None. Commissions Specialist/Model: [email or web address] FINDINGS: LUMBAR SPINE L1-L4 included unless otherwise [...] documented as of this encounter Care Teams Underground Foreman Relationship Specialty Start Date End Date Cintia Cobb M.D. PCP - General 02/19/17 02/20/[address] [place] [phone] documented as of this encounter
--- OUTSIDE RECORDS SUMMARY | 2022-08-19 10:27 | XMS_ITS | Encounter Summary ---
:1960 Author Organization [facility] Address [address] [place] [address] Care Team Providers Name Role Phone Cintia Cobb M.D. Primary Care Provider [phone] Encounter Details Date Type Department Care Team Description 11/07/2019 Hospital Encounter Department of [place] Fracture Hip Closed Radiology in Cintia Jean Baptiste Initi renée Mcmahon ([facility]) [place], [place] Keely Piper [address] [place] [phone] Social History Tobacco Use Types Packs/Day Years [...] Results for this VIEWS (most inpatients PM CLINICAL QUALITY ASSURANCE ASSOCIATE Closed Initial procedure are in and all Left (HCC) the results outpatients) section. documented in this encounter Results DX Hip Left 2-3 Views (11/07/2019 2:58 PM CLINICAL QUALITY ASSURANCE ASSOCIATE) Anatomical Region Laterality Modality Lower Extremity, Hip, Musculoskeletal RST LOS, Left Digital Radiography Musculoskeletal ARZ LOS, Muskuloskeletal FLA LOS Specimen (Source) Anatomical Collection Method Collection Time Re ceived Time Location / / Volume Laterality 11/07/2019 3:14 PM CLINICAL QUALITY ASSURANCE ASSOCIATE Impressions 11/07/2019 3:15 PM CLINICAL QUALITY ASSURANCE ASSOCIATE Postop changes prior IM ovidio, nail fixation [...] Hardware is intact Narrative 11/07/2019 3:15 PM CLINICAL QUALITY ASSURANCE ASSOCIATE EXAM: DX HIP LEFT 2-3 VIEWS COMPARISON: [...] documented as of this encounter Care Teams Master Sheet Clerk Relationship Specialty Start Date End Date Cintia Cobb M.D. PCP - General 02/19/17 02/20/[address] [phone] documented as of this encounter
--- OUTSIDE RECORDS SUMMARY | 2022-08-19 10:27 | XMS_ITS | Encounter Summary ---
:1960 Author Organization [facility] Address [address] [place] [address] Care Team Providers Name Role Phone Kevin Bullock M.D. Primary Care Provider [phone] Reason for Referral Outpatient (Routine) - Closed Specialty Diagnoses / Procedures Referred By Contact Refer red To Contact Diagnoses Fracture Hip Closed Initial Left (HCC) Kevin Bullock [place] Procedures BMD Bone Density Spine Hips Keely Piper [address] [address] Referral ID Status Reason Start Date Expiration Date Visits Requ ested Visits Authorized [id number] Closed 11/08/2019 11/07/2020 1 1 hysical Therapy (Routine) - Closed Specialty Diagnoses / Procedures Referred By Contact Refer red To Contact Diagnoses Pain Shoulder Right Kevin Bullock [place] Procedures PT Evaluate and treat SKeely [address] [address] Referral ID Status Reason Start Date Expiration Date Visits Requ ested Visits Authorized [id number] Closed 11/08/2019 11/07/2020 1 1 TRICIAN APPRENTICE Reason for Visit Appointment Request (Routine) - Closed Specialty Diagnoses / Procedures Referred By Contact Refer red To Contact Family Medicine Referral ID Status Reason Start Date Expiration Date Visits Requ ested Visits Authorized [id number] Closed 10/04/2019 10/03/2020 1 1 Encounter Details Date Type Department Care Team Description 11/08/2019 Office Visit Department of Family Terri Bullock 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 Diabetes Mellitus Type 2 Ulcer Foot ([facility] ); [facility], in [address] [place] [address] Pain Elle ulder Right; Jose Daniel Dean, [facility] Fracture Hip Closed Initial Left (HCC); [place] Jose Daniel Dean [place] Anemia Microcytic; [address] [place] [address] [address]VD [address] Gastric Bypass Status Post; DREW CONDON [phone] Hypertensio n Essential Primary; [phone] (Work) Hyperlipidemia On Treatment; [phone] Flutter A trial ([facility]) Social History Tobacco Use Types [...] [facility] in [place]. reports that Ed has been having more [...] Diabetes Mellitus Type 2 With Diabetic Neuropathy ([facility]) Last A1c at goal at 5.7%. #2 Diabetes Mellitus Type 2 Ulcer Foot ([facility]) Recommended that they stop using [...] PT. #4 Fracture Hip Closed Initial Left ([facility]) Continue with PT and orthopedics. [...] is not taking meds. #9 Flutter Atrial ([facility]) Pacemaker in place. Not on [...] Electronically Signed: lidia Ag. 11/08/2019. 7:29 PM ELECTRICIAN APPRENTICE . I, Kevin Copeland M.D., personally performed the services described in this documentation.All medical record entries made by the scribe were at my direction and in my presence. I have reviewed the chart and discharge instructions (if applicable) and agree that the record reflects my personal performance and is accurate and complete. Kevin Copeland M.D. . 11/09/2019. 9:53 PM ELECTRICIAN APPRENTICE. TRICIAN APPRENTICE documented in this encounter Miscellaneous Notes Addendum Note - Kevin Bullock M.D. - 11/08/2019 5:30 PM ELECTRICIAN APPRENTICE Addended by: KEVIN BULLOCK on: 11/19/2019 11:54 [...] Organization Address City/State/ZIP Code Phon e Number [facility]- [address] [place], [place] [address] [facility] [place] [address] System in [place] 70 Juju Good Lipid Panel (12/18/2020 7:49 [...] Organization Address City/State/ZIP Code Phon e Number [facility]- [address] [place] [address] [place] [address] [place] [address] System [address] (ABNORMAL) Basic Metabolic Panel (12/18/2020 7:49 [...] CDT eGFR-Black/Afri >90 >=60 12/18/2020 CN[facility] can Guyanese mL/min/BSA 8:31 PM CDT Comment: ----ADDITIONAL INFORMATION---- [...] Organization Address City/State/ZIP Code Phon e Number [facility]- [address] [place] [address] [place] [address] System in [address] (ABNORMAL) CBC without Differential (12/18/2020 7:48 [...] Organization Address City/State/ZIP Code Phon e Number [facility]- [address] [place] [address] [place] [address] System in [address] Hemoglobin A1c (12/18/2020 7:48 PM CDT) P athologist Signature Hemoglobin A1c, 5.3 4.2 - 5.6 12/18/2020 CNFL B % 8:33 PM CDT Specimen Anatomical Collection Method Collection Time Receive d Time (Source) Location / / Volume Laterality Blood (Blood, 12/18/2020 7:48 PM 12/19/19 21 8:07 Venous) CDT PM CDT Kevin Copeland M.D. LAB BLOOD ADD-ON Performing Organization Address City/State/[facility] Code Phon e Number [facility]- [address] [place] [address] [place] [address] System in [place] [address] [address] 25-Hydroxyvitamin D2 and D3 (12/18/2020 7:48 [...] its performa nce characteristics determined by [facility] in a manner consistent with CLIA requirements. [...] e Number [facility] [address] [place], [place] [address] [place] [address] [place] [address] Laboratory Medicine and Pathology [address] [place] BMD Bone Density Spine Hips (11/09/2019 3:05 PM ELECTRICIAN APPRENTICE) Anatomical Region Laterality Modality Hip, Lumbar Spine, Nuclear Medicine RST LOS, N/A Radiographic Imaging Musculoskeletal ARZ LOS, Muskuloskeletal FLA LOS Specimen (Source) Anatomical Collection Method Collection Time Re ceived Time Location / / Volume Laterality 11/09/2019 3:29 PM ELECTRICIAN APPRENTICE Impressions 11/09/2019 3:31 PM ELECTRICIAN APPRENTICE Osteoporosis. Narrative 11/09/2019 3:31 PM ELECTRICIAN APPRENTICE EXAM: BMD BONE DENSITY SPINE HIPS COMPARISON: None. Cellophaner/Model: Hoods FINDINGS: ?? LUMBAR SPINE L1-L4 included unless [...] BMD BONE DENSITY SPINE HIPS COMPARISON: None. Cellophaner/Model: Hoods FINDINGS: LUMBAR SPINE L1-L4 included unless otherwise [...] as of this encounter Care Teams Regional Merchandising Manager Relationship Specialty Start Date End Date Kevin Bullock M.D. PCP - General 02/19/17 02/20/[address] [address] documented as of this encounter
--- OUTSIDE RECORDS SUMMARY | 2022-08-19 10:27 | XMS_ITS | Encounter Summary ---
:1960 Author Organization [facility] Address [address] [place] [address] Care Team Providers Name Role Phone Cintia Cobb M.D. Primary Care Provider Encounter Details Date Type Department Care Team Description 01/11/2020 Office Visit Department of Kacie Huerta, Follow Up E xamination Orthopedic Surgery in [place] C.N.P., Posto perative Visit [place], [place] D.N.P. (Primary Dx) [address] [facility] [address] [place] [phone] Social History Tobacco Use Types Packs/Day Years [...] documented as of this encounter Care Teams Mr Teacher Relationship Specialty Start Date End Date Cintia Cobb M.D. PCP - General 02/19/17 02/20/[address] [place] [phone] documented as of this encounter
--- OUTSIDE RECORDS SUMMARY | 2022-08-19 10:27 | XMS_ITS | Encounter Summary ---
:1960 Author Organization [facility] Address [address] [place] [address] Care Team Providers Name Role Phone Cintia Cobb M.D. Primary Care Provider [phone] Reason for Visit Physical Therapy (Routine) - Canceled Specialty Diagnoses / Procedures Referred By Contact Refer red To Contact Diagnoses Follow Up Examination Postoperative Visit Fracture Hip Intertrochanteric Closed Initial Left (HCC) Kacie Huerta APRN, [facility] Procedures PT Ongoing treatment C.N.P., D.N.P. [address] [place] [address] Referral ID Status Reason Start Date Expiration Date Visits V isits Requested Authorized [id number] Canceled 10/13/2019 10/12/2020 99 99 Encounter Details Date Type Department Care Team Description 11/01/2019 Clinical Department of Kacie Huerta APRN, C.N.P., D.N.P. [address] [place] [phone] Follow Up Examination Postoperative Visi t; Support Rehabilitation Lesli Dias P.TPili [address] [place] [phone] Fracture Hip Intertrochanteric Closed In itial Left (HCC) Services in [address] [place] [address] Social History Tobacco Use Types Packs/Day Years [...] eval and treat Onset Date: 08/12/19 Payor: [facility] CARE / Plan: [facility] [employer] HMO / Product Type: Medicaid HMO / [...] TREATMENT Treatment today consisted of: Performed the eduClipper-Fit total body ergometer x 10 minutes level [...] P.T. Department of Rehabilitation Services in [address] [address] Dept: [phone] KING GUIDE documented in this encounter Plan of Treatment Not on filedocumented as of this encounter Visit Diagnoses Diagnosis Follow Up Examination Postoperative Visi t Fracture Hip Intertrochanteric Closed In itial Left (HCC) documented in this encounter Additional Health Concerns Assessment Noted Time PHQ-9 Depression Total Score: 18 02/14/2013 9:53 AM CD T documented as of this encounter Care Teams Business Development Director Relationship Specialty Start Date End Date Cintia Cobb M.D. PCP - General 02/19/17 02/20/[address] [place] [phone] documented as of this encounter
--- OUTSIDE RECORDS SUMMARY | 2022-08-19 10:27 | XMS_ITS | Encounter Summary ---
:1960 Author Organization [facility] Address [address] [place] [address] Care Team Providers Name Role Phone Cintia Cobb M.D. Primary Care Provider [phone] Reason for Visit Reason Comments PT Progress Note Encounter Details Date Type Department Care Team Description 01/02/2020 Clinical Department of [facility], PT Progress No te Communication Rehabilitation Lesli Oakes Services in [address], [address] [place] [phone] Social History Tobacco Use Types Packs/Day Years [...] as of this encounter Care Teams Facility Coordinator Relationship Specialty Start Date End Date Cintia Cobb M.D. PCP - General 02/19/17 02/20/[address] [place] [phone] documented as of this encounter
--- OUTSIDE RECORDS SUMMARY | 2022-08-19 10:27 | XMS_ITS | Encounter Summary ---
:1960 Author Organization [facility] Address [address] [place] [address] Care Team Providers Name Role Phone Cintia Cobb M.D. Primary Care Provider [phone] Reason for Visit Reason Comments PT Progress Note Encounter Details Date Type Department Care Team Description 12/01/2019 Clinical Department of [place], DEVANTE Progress No te Communication Rehabilitation Lesli Oakes Services in [address], [address] [place] [phone] Social History Tobacco Use Types Packs/Day Years [...] as of this encounter Care Teams Metal Weigher Relationship Specialty Start Date End Date Cintia Cobb M.D. PCP - General 02/19/17 02/20/[address] [address] documented as of this encounter
--- OUTSIDE RECORDS SUMMARY | 2022-08-19 10:27 | XMS_ITS | Encounter Summary ---
:1960 Author Organization [facility] Address [address] [place] [address] Care Team Providers Name Role Phone Cintia Cobb M.D. Primary Care Provider [phone] Reason for Visit Reason Comments PT Progress Note Encounter Details Date Type Department Care Team Description 12/08/2019 Clinical Department of [place], PT Progress No te Communication Rehabilitation Lesli Oakes Services in [address], [address] [place] [phone] Social History Tobacco Use Types Packs/Day Years [...] as of this encounter Care Teams Warehouse Order Puller Relationship Specialty Start Date End Date Cintia Cobb M.D. PCP - General 02/19/17 02/20/[phone] [place] [phone] documented as of this encounter
--- OUTSIDE RECORDS SUMMARY | 2022-08-19 10:27 | XMS_ITS | Encounter Summary ---
:1960 Author Organization [facility] Address [address] [place] [address] Care Team Providers Name Role Phone Cintia Cobb M.D. Primary Care Provider [phone] Reason for Visit Reason Comments PT Progress Note Encounter Details Date Type Department Care Team Description 11/29/2019 Clinical Department of [place], PT Progress No te Communication Rehabilitation Lesli Oakes Services in [address], [address] [place] [phone] Social History Tobacco Use Types Packs/Day Years [...] sent to patient viaemail provided by patient ([email or web address]). Exercises included SLR, seated hip abduction with [...] documented as of this encounter Care Teams Microfilm Clerk Relationship Specialty Start Date End Date Cintia Cobb M.D. PCP - General 02/19/17 02/20/[address] [phone] documented as of this encounter
--- OUTSIDE RECORDS SUMMARY | 2022-08-19 10:27 | XMS_ITS | Encounter Summary ---
:1960 Author Organization [facility] Address [address] [place] [address] Care Team Providers Name Role Phone Cintia Cobb M.D. Primary Care Provider [phone] Reason for Visit Physical Therapy (Routine) - Canceled Specialty Diagnoses / Procedures Referred By Contact Refer red To Contact Diagnoses Follow Up Examination Postoperative Visit Fracture Hip Intertrochanteric Closed Initial Left (HCC) Kacie Huerta APRN, [facility] Procedures PT Ongoing treatment C.N.P., D.N.P. [address] [place] [address] Referral ID Status Reason Start Date Expiration Date Visits V isits Requested Authorized [id number] Canceled 10/13/2019 10/12/2020 99 99 Encounter Details Date Type Department Care Team Description 01/05/2020 Clinical Department of Kacie Huerta APRN, C.N.P., D.N.P. [address] [place] [phone] Follow Up Examination Postoperative Visi t; Support Rehabilitation Lesli Dias P.TPili [address] [place] [phone] Fracture Hip Intertrochanteric Closed In itial Left (HCC) Services in [address] [place] [address] Social History Tobacco Use Types Packs/Day Years [...] and treat Onset Date: 08/12/19 Payor: [facility] / Plan: [facility] [employer] HMO / Product Type: Medicaid HMO / [...] Dias P.T. Department of Rehabilitation Services in [address] [address] Dept: [phone] documented in this encounter Plan of Treatment Not on filedocumented as of this encounter Visit Diagnoses Diagnosis Follow Up Examination Postoperative Visi t Fracture Hip Intertrochanteric Closed In itial Left (HCC) documented in this encounter Additional Health Concerns Assessment Noted Time PHQ-9 Depression Total Score: 18 02/14/2013 9:53 AM CD T documented as of this encounter Care Teams Commander Police Reserves Relationship Specialty Start Date End Date Cintia Cobb M.D. PCP - General 02/19/17 02/20/[address] [phone] documented as of this encounter
--- OUTSIDE RECORDS SUMMARY | 2022-08-19 10:27 | XMS_ITS | Encounter Summary ---
:1960 Author Organization [facility] Address [address] [place] [address] Care Team Providers Name Role Phone Cintia Cobb M.D. Primary Care Provider [phone] Encounter Details Date Type Department Care Team Description 12/26/2019 Orders Only Department of [facility] Yady Cobb Hip Closed MedicineJose Daniel M.D. Initial Left (HCC) [facility], in [address] [place] [address] (Primary Dx) [address] [address] [place], [place] [phone] (W ork) [address] [phone] Social History Tobacco Use Types Packs/Day Years [...] documented as of this encounter Care Teams Promotion Manager Relationship Specialty Start Date End Date Cintia Cobb M.D. PCP - General 02/19/17 02/20/[address] [place] [phone] documented as of this encounter
--- OUTSIDE RECORDS SUMMARY | 2022-08-19 10:27 | XMS_ITS | Encounter Summary ---
:1960 Author Organization [facility] Address [address] [place] [address] Care Team Providers Name Role Phone Cintia Cobb M.D. Primary Care Provider [phone] Reason for Visit Physical Therapy (Routine) - Canceled Specialty Diagnoses / Procedures Referred By Contact Refer red To Contact Diagnoses Follow Up Examination Postoperative Visit Fracture Hip Intertrochanteric Closed Initial Left (HCC) Kacie Huerta APRN, [facility] Procedures PT Ongoing treatment C.N.P., D.N.P. [address] [place] [address] Referral ID Status Reason Start Date Expiration Date Visits V isits Requested Authorized [id number] Canceled 10/13/2019 10/12/2020 99 99 Encounter Details Date Type Department Care Team Description 11/07/2019 Clinical Department of Kacie Huerta APRN, C.N.P., D.N.P. [address] [place] [phone] Follow Up Examination Postoperative Visi t; Support Rehabilitation Lesli Dias P.TPili [address] [place] [phone] Fracture Hip Intertrochanteric Closed In itial Left (HCC) Services in [address] [place] [address] Social History Tobacco Use Types Packs/Day Years [...] 08/12/19 Payor: [facility] / Plan: [facility] [employer] HMO / Product Type: [...] Dias P.T. Department of Rehabilitation Services in [address] [address] Dept: [phone] L GRINDER documented in this encounter Plan of Treatment Not on filedocumented as of this encounter Visit Diagnoses Diagnosis Follow Up Examination Postoperative Visi t Fracture Hip Intertrochanteric Closed In itial Left (HCC) documented in this encounter Additional Health Concerns Assessment Noted Time PHQ-9 Depression Total Score: 18 02/14/2013 9:53 AM CD T documented as of this encounter Care Teams Skin Diver Relationship Specialty Start Date End Date Cintia Cobb M.D. PCP - General 02/19/17 02/20/[address] [place] [phone] documented as of this encounter
--- OUTSIDE RECORDS SUMMARY | 2022-08-19 10:28 | XMS_ITS | Encounter Summary ---
:[address] [facility] Address [address] [place] [address] Care Team Providers Name Role Phone Cintia Cobb M.D. Primary Care Provider [phone] Encounter Details Date Type Department Care Team Description 10/04/2019 Hospital Encounter Department of Kacie Huerta Follo w Up Examination Radiology in [facility], C.N.P., Postope rative Visit [place], [place] D.N.P. [address] [place] [phone] Social History Tobacco Use Types Packs/Day [...] this PELVIS LEFT 2-3 (most inpatients PM WEBFOCUS DEVELOPER Examination procedur e are in VIEWS and all Postoperative Visit the resu lts outpatients) section. documented in this encounter Results DX Hip And Pelvis Left 2-3 Views (10/04/2019 3:58 PM WEBFOCUS DEVELOPER) Anatomical Region Laterality Modality Lower Extremity, Pelvis, Hip, Musculoskeletal RST LOS, Left Digital Radiography Musculoskeletal ARZ LOS, Muskuloskeletal FLA LOS Specimen (Source) Anatomical Collection Method Collection Time Re ceived Time Location / / Volume Laterality 10/04/2019 4:42 PM WEBFOCUS DEVELOPER Impressions 10/04/2019 4:43 PM WEBFOCUS DEVELOPER Prior surgical fixation across a subacute fracture of the intertrochanteric left femur. The fractu re line remains visible with interval healing change. No evidence of hardware loosening. Negative for acute fracture. Degenerative changes at the lumbosacral junction, both SI joints, and right hip. Demineralization. Narrative 10/04/2019 4:43 PM WEBFOCUS DEVELOPER EXAM: DX HIP AND PELVIS LEFT 2-3 [...] documented as of this encounter Care Teams Dehydrator Relationship Specialty Start Date End Date Cintia Cobb M.D. PCP - General 02/19/17 02/20/[address] [phone] documented as of this encounter
--- OUTSIDE RECORDS SUMMARY | 2022-08-19 10:28 | XMS_ITS | Encounter Summary ---
:1960 Author Organization [facility] Address [address] [place] [address] Care Team Providers Name Role Phone Cintia Cobb M.D. Primary Care Provider [phone] Reason for Visit Reason Comments Med Refill Encounter Details Date Type Department Care Team Description 09/17/2019 Refill Department of Family Medicine, Gray Danielson M.D. Med Refill [facility], in [place] [address] [address] [place], [place] [address] [phone] Social History Tobacco Use Types Packs/Day Years [...] documented as of this encounter Care Teams Resident Doctor Relationship Specialty Start Date End Date Cintia Cobb M.D. PCP - General 02/19/17 02/20/[address] [phone] documented as of this encounter
--- OUTSIDE RECORDS SUMMARY | 2022-08-19 10:28 | XMS_ITS | Encounter Summary ---
:1960 Author Organization [facility] Address [address] [place] [address] Care Team Providers Name Role Phone Cintia Cobb M.D. Primary Care Provider [phone] Reason for Referral Outpatient (Routine) - Closed Specialty Diagnoses / Procedures Referred By Contact Refer red To Contact Orthopedic Surgery Diagnoses Follow Up Examination Postoperative Visit John Norman, [facility] [place] [address] Referral ID Status Reason Start Date Expiration Date Visits Requ ested Visits Authorized [id number] Closed 08/16/2019 08/15/2020 1 1 ICAL NUTRITION MANAGER Encounter Details Date Type Department Care Team Description 08/16/2019 Orders Only Department of Keyla Lopez, Follow Up Examination Orthopedic Surgery in [place] Postoperative Visit [place] [phone] (Primary Dx) [address] (Work) [place] [address] Social History Tobacco Use Types Packs/Day [...] as of this encounter Care Teams Sales Project Engineer Relationship Specialty Start Date End Date Cintia Cobb M.D. PCP - General 02/19/17 02/20/[address] [phone] documented as of this encounter
--- OUTSIDE RECORDS SUMMARY | 2022-08-19 10:28 | XMS_ITS | Encounter Summary ---
:1960 Author Organization [facility] Address [address] [place] [address] Care Team Providers Name Role Phone Cintia Cobb M.D. Primary Care Provider [phone] Reason for Visit Reason Comments Med Refill Encounter Details Date Type Department Care Team Description 09/20/2019 Refill Department of [facility] Angélica Cobb Med Refill Medicine, Jose Daniel Piper M.D. [facility], in [address] [address] [place], [place] [address] [phone] Social History Tobacco Use Types Packs/Day Years [...] as of this encounter Care Teams Outside Sales Associate Relationship Specialty Start Date End Date Cintia Cobb M.D. PCP - General 02/19/17 02/20/[address] [place] [phone] documented as of this encounter
--- OUTSIDE RECORDS SUMMARY | 2022-08-19 10:28 | XMS_ITS | Encounter Summary ---
:[address] [facility] Address [address] [place] [address] Care Team Providers Name Role Phone Cintia Cobb M.D. Primary Care Provider [phone] Reason for Visit Physical Therapy (Routine) - Canceled Specialty Diagnoses / Procedures Referred By Contact Refer red To Contact Diagnoses Follow Up Examination Postoperative Visit Fracture Hip Intertrochanteric Closed Initial Left (HCC) Kacie Huerta APRN, [facility] Procedures PT Ongoing treatment C.N.P., D.N.P. [address] [place] [address] Referral ID Status Reason Start Date Expiration Date Visits V isits Requested Authorized [id number] Canceled 10/13/2019 10/12/2020 99 99 Encounter Details Date Type Department Care Team Description 10/27/2019 Clinical Department of Kacie Huerta APRN, C.N.P., D.N.P. [address] [place] [phone] Follow Up Examination Postoperative Visi t; Support Rehabilitation Lesli Dias P.TPili [address] [place] [phone] Fracture Hip Intertrochanteric Closed In itial Left (HCC) Services in [address] [place] [address] Social History Tobacco Use Types Packs/Day Years [...] [facility] CARE / Plan: [facility] BLUE PLUS [...] P.T. Department of Rehabilitation Services in [address] [address] Dept: [phone] RAL PROFESSIONAL documented in this encounter Plan of Treatment Not on filedocumented as of this encounter Visit Diagnoses Diagnosis Follow Up Examination Postoperative Visi t Fracture Hip Intertrochanteric Closed In itial Left (HCC) documented in this encounter Additional Health Concerns Assessment Noted Time PHQ-9 Depression Total Score: 18 02/14/2013 9:53 AM CD T documented as of this encounter Care Teams Environmental Emergencies Planner Relationship Specialty Start Date End Date Cintia Cobb M.D. PCP - General 02/19/17 02/20/[address] [place] [phone] documented as of this encounter
--- OUTSIDE RECORDS SUMMARY | 2022-08-19 10:28 | XMS_ITS | Encounter Summary ---
:1960 Author Organization [facility] Address [address] [place] [address] Care Team Providers Name Role Phone Cintia Cobb M.D. Primary Care Provider [phone] Reason for Visit Reason Onset Date Comments Coding 09/15/2019 Encounter Details Date Type Department Care Team Description 09/15/2019 Clinical Communication Department of [facility] Yady donahue, [facility] Medicine, Jose Daniel Piper M.D. [facility], [address] [address] [place], [place] [phone] (Work) [phone] Social History Tobacco Use Types Packs/Day Years [...] ICD 10 code for patients Mepilex script. ER SPOTTER Telephone Encounter - Eli Enrique - 09/15/2019 3:11 PM CST Tiffany is needing the ICD 10 code for billing on the Mepilex that was prescribed for Ed on 09-12-2019. Please call pharmacy with information, Thanks ER SPOTTER documented in this encounter Plan of Treatment Not on filedocumented as of this encounter Visit Diagnoses Diagnosis Fracture Hip Closed Initial Left (HCC) - Primary documented in this encounter Additional Health Concerns Assessment Noted Time PHQ-9 Depression Total Score: 18 02/14/2013 9:53 AM CD T documented as of this encounter Care Teams Preform Machine Operator Relationship Specialty Start Date End Date Cintia Cobb M.D. PCP - General 02/19/17 02/20/[address] [place] [phone] documented as of this encounter
--- OUTSIDE RECORDS SUMMARY | 2022-08-19 10:28 | XMS_ITS | Encounter Summary ---
:1960 Author Organization [facility] Address [address] [place] [address] Care Team Providers Name Role Phone Cintia Cobb M.D. Primary Care Provider Encounter Details Date Type Department Care Team Description 10/14/2019 Orders Only Department of Mitzi Williamson I., Wound Toe Without Infusion Therapy in [place].N. Damage To Nail Open [address] Subsequent (Primary [place], [place] Dx) [address] [address] [place] [phone] Social History Tobacco Use Types Packs/Day [...] as of this encounter Care Teams Television Picture Tube Rebuilder Relationship Specialty Start Date End Date Cintia Cobb M.D. PCP - General 02/19/17 02/20/[address] [place], [place] [address] [phone] documented as of this encounter
--- OUTSIDE RECORDS SUMMARY | 2022-08-19 10:28 | XMS_ITS | Encounter Summary ---
:1960 Author Organization [facility] Address [address] [place] [address] Care Team Providers Name Role Phone Cintia Cobb M.D. Primary Care Provider [phone] Encounter Details Date Type Department Care Team Description 10/31/2019 Orders Only Department of [facility] Angélica Cobb Medicine, Jose Daniel Piper M.D. Clinic, in [address] [address] [place], [place] [phone] (W ork) [phone] Social History Tobacco Use Types Packs/Day Years [...] as of this encounter Care Teams Cotton Bag Sewer Relationship Specialty Start Date End Date Cintia Cobb M.D. PCP - General 02/19/17 02/20/[address] [place] [phone] documented as of this encounter
--- OUTSIDE RECORDS SUMMARY | 2022-08-19 10:28 | XMS_ITS | Encounter Summary ---
:1960 Author Organization [facility] Address [address] [place] [address] Care Team Providers Name Role Phone Cintia Cobb M.D. Primary Care Provider [phone] Reason for Visit Physical Therapy (Routine) - Canceled Specialty Diagnoses / Procedures Referred By Contact Refer red To Contact Diagnoses Follow Up Examination Postoperative Visit Fracture Hip Intertrochanteric Closed Initial Left (HCC) Kacie Huerta APRN, [facility] Procedures PT Ongoing treatment C.N.P., D.N.P. [address] [place] [phone] Referral ID Status Reason Start Date Expiration Date Visits V isits Requested Authorized [id number] Canceled 10/13/2019 10/12/2020 99 99 Encounter Details Date Type Department Care Team Description 10/21/2019 Clinical Department of Kacie Huerta APRN, C.N.P., D.N.P. [address] [place] [phone] Follow Up Examination Postoperative Visi t; Support Rehabilitation Lesli Dias P.TPili [address] [place] [phone] Fracture Hip Intertrochanteric Closed In itial Left (HCC) Services in [address] [place] [address] Social History Tobacco Use Types Packs/Day Years [...] Payor: [facility] CARE / Plan: [facility] BLUE PLUS HMO / Product Type: Medicaid [...] Dias P.T. Department of Rehabilitation Services in [address] [address] Dept: [phone] [facility] documented in this encounter Plan of Treatment Not on filedocumented as of this encounter Visit Diagnoses Diagnosis Follow Up Examination Postoperative Visi t Fracture Hip Intertrochanteric Closed In itial Left (HCC) documented in this encounter Additional Health Concerns Assessment Noted Time PHQ-9 Depression Total Score: 18 02/14/2013 9:53 AM CD T documented as of this encounter Care Teams Kettle Girl Relationship Specialty Start Date End Date Cintia Cobb M.D. PCP - General 02/19/17 02/20/[address] [place] [phone] documented as of this encounter
--- OUTSIDE RECORDS SUMMARY | 2022-08-19 10:28 | XMS_ITS | Encounter Summary ---
:[address] [facility] Address [address] [place] [address] Care Team Providers Name Role Phone Cintia Cobb M.D. Primary Care Provider [phone] Reason for Visit Auth/Cert Specialty Diagnoses / Procedures Referred By Contact Refer red To Contact Diagnoses Pain Joint Fracture Hip Closed Initial Left (HCC) Hip Fracture Procedures n/a Referral ID Status Reason Start Date Expiration Date Visits Requ ested Visits Authorized [id number] 1 1 Encounter Details Date Type Department Care Team Description 08/12/2019 - Hospital Encounter [facility] Dumont, Ed Angélica Oakes [address] [place] [id number] Fracture Hip Closed Initial Left (HCC) ( Primary Dx); 08/16/2019 [facility] Rahel Ashby M.D. [address] [place] [phone] [facility], Third Floor [address] [place] [address] Social History Tobacco Use Types Packs/Day Years Used Date Smoking Tobacco: Never Smokeless Tobacco: Never Alcohol Use Standard Drinks/Week Comments No 0 (1 standard drink = 0.6 oz pure alcoho l) Sex Assigned at Date Recorded Not on file documented as of this encounter Last Filed Vital Signs Vital Sign Reading Time Taken Comments Blood Pressure 110/73 08/16/2019 3:21 AM EYEGLASS LENS GRINDER Pulse 77 08/15/2019 8:09 PM EYEGLASS LENS GRINDER Temperature 36.9 ??C (98.4 ??F) 08/16/2019 3:21 AM EYEGLASS LENS GRINDER Respiratory Rate 16 08/16/2019 3:21 AM EYEGLASS LENS GRINDER Oxygen Saturation 95% 08/16/2019 3:21 AM EYEGLASS LENS GRINDER Inhaled Oxygen Concentration - - Weight 80.2 kg (176 lb 12.9 oz) 08/16/2019 5:00 AM EYEGLASS LENS GRINDER Height 182.9 cm (6') 08/12/2019 12:43 PM EYEGLASS LENS GRINDER Body Mass Index 23.98 08/12/2019 12:43 PM EYEGLASS LENS GRINDER documented in this encounter Discharge Summaries Laz Dumont M.D. - 08/16/2019 12:00 PM CST DISCHARGE SUMMARY BRIEF OVERVIEW Discharge Provider: Laz Dumont M.D. Primary Care Providers: Cintia Cobb M.D. ([address] [phone] Primary Care Provider Primary Care Provider Other [...] INTERNAL FIXATION LEFT FEMUR John Norman M.D. 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 Had surgery for repair on August 13 [...] and needs to get back to driving [employer] a soon as possible to help with [...] 45 minutes discharge care by me today LASS LENS GRINDER documented in this encounter Discharge Instructions Discharge Instr - Non [facility] Yfhcng-LseGamkko-Fgqqqemaeb, Becky - 08/16/2019 12:01 PM CST Please have Patient seen by PCP on rounds in 3-5 days. LASS LENS GRINDER documented in this encounter Medications at Time [...] L hip fx Onset Date: 08/12/19 Payor: [employer] [facility] [place] CARE / Plan: [facility] HMO / Product Type: Medicaid [...] min Functional G-code Worksheet Marya Paredes P.T.A. [facility], Third Floor [address] [facility] [address] Dept: [phone] LASS LENS GRINDER Associated attestation - Stephanie Diaz PLainey - 08/18/2019 7:58 AM EYE[facility] L[facility]ER Physical Therapy Dismissal Snapshot Patient was seen [...] Cristobal, and Dr. Dumont. SWS confirmed with [facility] that thereare no beds today. [...] to go to short term rehab at [address] [place] [address] in [place] today. Ed contacted his , Julissa and confirmed that his friend can not transport until 3pm or later. SWS spoke with [facility] [place] [address] admissions and confirmed discharge today, by 12noon. Nurse Cristobal completed the Nurse to Nurse. SWS contacted [facility] and [facility] and they both are not available for transport today. SWS contacted [employer] and set up 12noon to transport. O: Discharge Planning for today to arrive no later than 3pm to [address] [place] [address] A: Ed was fully engaged in our conversation and open to going to a SNF upon discharge to decrease the time he is away from work for recovery. P: Discharge today - LASS LENS GRINDER Laz Dumont M.D. 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 Patient definitely not interested in a detention after hospitalization, particularly with experiences his mother had in senior care facilities. Ed used a [employer] in [place] to start letter correspondences with dozens of Filipina women around 2003. Julissa, his , is from [facility] ([facility] near active [facility] 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 Had surgery for repair on August 13 [...] help I still recommend it. He skipped F94mlgps last few months (thinks they cause diarrhea [...] he makes big strides he likely needs senior care help. He is not open to discussing this and fired the social studies teacher today.(he fired me over a similar issue [...] care. Spoke with nurse, PT, social work. LASS LENS GRINDER Marya Paredes P.T.A. - 08/15/2019 11:26 AM CST Physical Therapy Inpatient Treatment SUBJECTIVE Patient's Name: Laz Cuauhtemoc Davilat Referring/Attending Provider: Rahel Ashby M.D. Medical Diagnosis: Pain Joint [M25.50] Fracture Hip Closed Initial Left (HCC) [S72.002A] Reason for Referral: L hip fx Onset Date: 08/12/19 Payor: [employer] [place] CARE / Plan: [employer] HMO / Product Type: Medicaid HMO / [...] in use of gait belt as leg doll wig maker rooted hair to assist left LE to edge of [...] min Functional G-code Worksheet Marya Paredes P.T.A. [facility], [facility], Third Floor [address] [facility] [address] Dept: [phone] LASS LENS GRINDER Ml Ha L.S.W. - 08/15/2019 11:10 AM [...] SWS passed this information onto Hillary Sotomayor/Nurse Toy Assembler. SWS Shared with Ed that a person [...] that he is not interested in any detention or and followed up with [address] [place] [address]/ Nathalia [phone]., Fax: [phone]. O: Discharge planning continued, Ed was sitting up in the chair and fully engaged in the conversation A: Ed enjoys sarcastic humor and consistent communication. Ed becomes frustrated if he feels he is being misinformed. P: Discharge likely tomorrow, per Dr. Dumont. Transport to be determined. LASS LENS GRINDER Kacie Huerta APRN, C.N.P., D.N.P. - 08/15/2019 [...] aware. Will have him follow up in [place] with Orthopedics in 2 weeks. 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 Patient definitely not interested in a detention after hospitalization, particularly with experiences his mother had in senior care facilities. Ed used a [employer] in [place] to start letter correspondences with dozens of Filipina women around 2003. Julissa, his , is from [facility] near active [facility] 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 Had surgery for repair on August 13 [...] with patient, 2 visits so far today. LASS LENS GRINDER Lacie Donaldson PSilvano. - 08/13/2019 12:48 PM CST Attempted to get patient up today. Patient continues to have numbness in legs. Will wait to start PTtomorrow 08/14/19. LASS LENS GRINDER Alyssa Shepherd O.T. - 08/13/2019 11:43 AM [...] mg (LOVENOX) 08/14/2019 40 mg, subcutaneous, Daily LASS LENS GRINDER documented in this encounter H&P Notes John [...] precede with surgical treatment. John Norman M.D. LASS LENS GRINDER Source Note - Juliette Bettencourt APRN, C.N.P., D.N.P. - 08/12/2019 2:22 PM EYEGLASS LENS GRINDER SUBJECTIVE CHIEF COMPLAINT Mr. Laz Luna is a 59 y.o. male who presents with left hip pain. HISTORY OF PRESENT ILLNESS Patient transferred from [place] emergency room this afternoon. Patient works by [employer] and fell on ice while loading his [...] but plans on getting a ride to [facility] tomorrow. Patient scheduled for the following [...] Procedure: ESOPHAGOGASTRODUODENOSCOPY; Surgeon: Rene Carlson M.D.; Location: [facility] ??? LAPAROSCOPIC ASSISTED - GASTRIC [...] level: None Occupational History ??? 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 Financial [...] on phone: None Gets together: None Attends anabaptism service: None Active member of club or [...] labs, xray and diagnostics from admission and [place] ED. ASSESSMENT / PLAN #1 Fracture Hip Intertrochanteric Closed Initial Left (HCC) Dr Norman orthopedics accepting patient, plan is for surgery 08/13/2019 Follow orthopedic recommendations #2 History Of Falling Fall precautions in place Ambulate with assistance #3 Diabetes Mellitus Type 2 ([facility]) Accucheck BID, Novolog BID Hypoglycemic measures in [...] of plan of care, chart review, and gqkh-mt-nemm interview. LASS LENS GRINDER Juliette Bettencourt APRN, C.N.P., D.N.P. - 08/12/2019 2:22 PM CST SUBJECTIVE CHIEF COMPLAINT Mr. Laz Luna is a 59 y.o. male who presents with left hip pain. HISTORY OF PRESENT ILLNESS Patient transferred from [place] emergency room this afternoon. Patient works by [employer] and fell on ice while loading his [...] but plans on getting a ride to [facility] tomorrow. Patient scheduled for the following [...] Procedure: ESOPHAGOGASTRODUODENOSCOPY; Surgeon: Rene Carlson M.D.; Location: [facility] ??? LAPAROSCOPIC ASSISTED - GASTRIC [...] level: None Occupational History ??? 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 Financial [...] on phone: None Gets together: None Attends anabaptism service: None Active member of club or [...] labs, xray and diagnostics from admission and [place] ED. ASSESSMENT / PLAN #1 Fracture Hip [...] of plan of care, chart review, and evsa-ul-kszm interview. LASS LENS GRINDER documented in this encounter Consult Notes Alyssa [...] L hip fx Onset Date: 08/12/19 Payor: [facility] CARE / Plan: [facility] HMO / Product Type: Medicaid [...] Procedure: ESOPHAGOGASTRODUODENOSCOPY; Surgeon: Rene Carlson M.D.; Location: [facility] ??? LAPAROSCOPIC ASSISTED - GASTRIC BYPASS N/A 11/21/2014 Laparoscopic assisted - Gastric bypass ??? OPEN REDUCTION INTERNAL FIXATION FEMUR Left 08/13/2019 Procedure: OPEN REDUCTION INTERNAL FIXATION LEFT FEMUR; Surgeon: John Norman M.D.; Location:[facility] OR ??? OTHER CONVERTED SHX (SEE COMMENT) N/A 01/19/2017 >Implantation of dual-chamber permanent pacemaker. ??? OTHER SURGICAL HISTORY cystoscopy ??? UPPER GASTROINTESTINAL ENDOSCOPY N/A 11/21/2014 Upper gastrointestinal endoscopy History of Present Illness: Patient slipped and fell on the ice. 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 [facility]'s 3-year data, as reported at [facility] 2017, indicates a cut off of 39.4 or greater in daily activity is a fair to good accurate prediction of discharge home. Source: AM-PAC ???6 -Clicks?? functional assessment scores predict acute care hospital discharge destination. Repair Miller. 2014 May; 94 (9): 1254-61. 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 Currently, patient presents with impairments including R hip fx c ORIF completed 08/13/19 resulting in the following functional deficits: impaired ADL/IADL and functional/ADL transfers. Laz Luna is a 59 y.o. year old direct admit to [facility] [place] [facility] following a fall on ice resulting in R hip fracture requiring ORIF completed 08/13/19, admission 08/12/19. Today, Mr. Laz Luna actively participated in education regarding regaining PLOF c basic ADL. Educated in WBAT status. Educatedin adaptive equipment for regaining self care independence. Reports has long cloud automation tester and long shoe horn at home from [...] toileting safety in a.m. Bathroom Safety Sheet [id number] provided as patient education with recommendations written [...] Daily Activities CMS Modifier: MARYJO Shepherd O.T. [facility], Third Floor [address] [facility] [address] Dept: [phone] LASS LENS GRINDER Lacie Donaldson P.T. - 08/14/2019 10:45 AM CST Consults Physical Therapy Inpatient Evaluation/Treatment SUBJECTIVE Patient's Name: Laz Luna Referring/Attending Provider: Rahel Ashby M.D. Medical Diagnosis: Pain Joint [M25.50] Fracture Hip Closed Initial Left (HCC) [S72.002A] Reason for Referral: L hip fx Onset Date: 08/12/19 Payor: [facility] CARE / Plan: [facility] HMO / Product Type: Medicaid HMO [...] Procedure: ESOPHAGOGASTRODUODENOSCOPY; Surgeon: Rene Carlson M.D.; Location: [facility] ??? LAPAROSCOPIC ASSISTED - GASTRIC BYPASS N/A 11/21/2014 Laparoscopic assisted - Gastric bypass ??? OTHER CONVERTED SHX (SEE COMMENT) N/A 01/19/2017 >Implantation of dual-chamber permanent pacemaker. ??? OTHER SURGICAL HISTORY cystoscopy ??? UPPER GASTROINTESTINAL ENDOSCOPY N/A 11/21/2014 Upper gastrointestinal endoscopy History of Present Illness: Patient slipped and fell on the ice. 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 [facility], Third Floor [address] [facility] [address] Dept: [phone] LASS LENS GRINDER Ml Ha L.S.W. - 08/12/2019 3:45 PM CST Discharge Planning Assessment SUBJECTIVE Referral Data Referral Source: Early Screen for Discharge Planning Referral Reason: (59 year old, Admit Diagnosis: Hip Fracture) Who was present during the interview?: Patient Ethologist Services Used: No Psychosocial assessment, Coping, adjustment [...] Patient Information Primary Caregiver: Self(Spouse Julissa h: [phone], c:[phone], supportive neighbors and friends) Legal Information Legal [...] to transport upon discharge) Finance/Insurance Primary insurance: [employer] Secondary insurance: N/A Does the Patient have [...] the basement) Support Systems: (Spouse Julissa h: [phone], c:[phone], supportive neighbors and friends) Anticipated Discharge Destination: Care Home Care or Intermediate Care Facility Recommended Discharge [...] he could likely do outpatient PT in [place] at [address] [place] [address], if he would prefer a location closer than [facility]. He stated that he may prefer to stay in the [facility] and [facility] is the closest. He stated that he is open to SWS sending a referral to [address] [place] [address] to determine if they have the ability to do outpatient PT for him or any other services. SWS received notice from [address] [place] [address] has accepted him for admission for short term rehab. SWS sent a message to [address] [place] [address] asking what outpatient PT services they provide. [...] needed. Signed by: Maria Guadalupe Feng 08/12/2019 LASS LENS GRINDER documented in this encounter Nursing Notes Anika [...] as needed- d/c to 3 links in [place]. Denise Morris RPiliN. - 08/16/2019 5:16 AM [...] Tylenol & Oxycodone for adequate pain control. LASS LENS GRINDER Desirae Veras R.N. - 08/14/2019 6:39 PM [...] CST PAS completed and sent to [facility]. PAS [id number] Hanny Hart R.N. - 08/13/2019 10:24 AM CST Patient became very agitated with nurse after she called him sir at the beginning of shift. Patient requested that he has a new nurse. Rn Advanced was notified and spoke to the patient [...] Patient remained free of falls this shift. LASS LENS GRINDER documented in this encounter OR Notes Op Note - John Norman M.D. - 08/13/2019 7:48 AM CST FULL OP NOTE Procedure(s) (LRB): OPEN REDUCTION INTERNAL FIXATION LEFT FEMUR (Left) Surgeon(s) and Role: * John Norman M.D. - Primary Carbide Powder Processor: Lesli Zuñiga L.P.N. Anesthesia Type Regional Pre-operative Diagnosis Fracture Hip Intertrochanteric Closed Initial Left (HCC) Post-operative Diagnosis Fracture Hip Intertrochanteric Closed Initial Left (HCC) Full Operative Note Details PROCEDURE(S) Open reduction, intramedullary fixation of left intertrochanteric femur fracture. SURGEON(S) John Norman M.D. TYPE CASTER: None. ANESTHESIA TYPE Spinal anesthesia. PRE-OPERATIVE DIAGNOSIS [...] closed using #1 Vicryl in an interrupted buizcj-os-svtgx fashion, followed by copious irrigation. Subcutaneous tissue [...] Implant Name Type Inv. Item Serial No. Municipal Engineer Lot No. LRB No. Used NL FEM TFN RT [id number] - SNA - [id number] Hardware e.g. pins/screws/rods NL FEM TFN RT 130D [id number] NA Depuy Synthes [id number] Left [address] 10.5X110 - SNA - [id number] Hardware e.g. pins/screws/rods SCRW TFN FEN ST 10.5X110 NA Depuy Synthes [id number] Left 1 SCRW LCK [facility] TI T25 5X38 - [id number] Hardware e.g. pins/screws/rods SCRW [facility] T25 5X38 Depuy Synthes Left 1 Intra-op Medications Date/Time Order Dose Route Action Action by 08/13/2019 0901 ceFAZolin in NaCl 0.9 % IVPB 2 g (ANCEF) intravenous Anesthesia Volume Adjustment Kalia Luna 08/13/2019 0727 ceFAZolin in NaCl 0.9 % IVPB 2 g (ANCEF) 2 g intravenous Given Kalia Luna M.D. LASS LENS GRINDER Brief Op Note - John Norman M.D. - 08/13/2019 7:48 AM CST BRIEF OP NOTE Procedure(s) (LRB): OPEN REDUCTION INTERNAL FIXATION LEFT FEMUR (Left) Surgeon(s) and Role: * John Norman M.D. - Primary Carbide Powder Processor: Lesli Zuñiga L.P.N. Anesthesia Type Regional Pre-operative Diagnosis Fracture Hip Intertrochanteric Closed Initial Left (HCC) Post-operative Diagnosis Fracture Hip Intertrochanteric Closed Initial Left (HCC) Brief Operative Note Details Specimens None Drains None Estimated Blood Loss None Implants Implant Name Type Inv. Item Serial No. Municipal Engineer Lot No. LRB No. Used NL FEM TFN RT 130D [id number] - SNA - [id number] Hardware e.g. pins/screws/rods NL FEM TFN RT 130D [id number] NA [employer] [id number] Left [address] 10.5X110 - SNA - [id number] Hardware e.g. pins/screws/rods SCRW TFN FEN ST 10.5X110 NA Depuy Synthes [id number] Left 1 SCRW LCK [place] TI T25 5X38 - [id number] Hardware e.g. pins/screws/rods SCRW LCK [place] TI T25 5X38 Depuy Synthes Left 1 John Norman M.D. LASS LENS GRINDER documented in this encounter Miscellaneous Notes Hospital Course - Rahel Ashby M.D. - 08/13/2019 12:26 PM CST 59 y/o male who presented to the ED with left hip pain workup revealed nondisplaced left intertrochanteric trochanteric fracture. Patient also has anemia of chronic disease 08/13 s/p ORIF, trend hemoglobin. LASS LENS GRINDER documented in this encounter Plan of Treatment Not on filedocumented as of this encounter Procedures Procedure Name Priority Date/Time Associated Diagnosis Comme nts ADULT OXYGEN Routine 08/15/2019 8:00 THERAPY AM EYEGLASS LENS GRINDER ADULT OXYGEN Routine 08/14/2019 8:01 THERAPY PM EYEGLASS LENS GRINDER ADULT OXYGEN Routine 08/14/2019 8:01 THERAPY AM EYEGLASS LENS GRINDER IRON AND TOT Routine 08/14/2019 6:00 Results for IRON-BINDING AM EYEGLASS LENS GRINDER this procedure CAPACITY, S/P are in the results section. HEMOGLOBIN, B Routine 08/14/2019 6:00 Results for AM EYEGLASS LENS GRINDER this procedure are in the results section. VITAMIN B12 Routine 08/14/2019 6:00 Results for ASSAY, S AM EYEGLASS LENS GRINDER this procedure are in the results section. ADULT OXYGEN Routine 08/13/2019 8:01 THERAPY PM EYEGLASS LENS GRINDER ADULT OXYGEN Routine 08/13/2019 9:13 THERAPY AM EYEGLASS LENS GRINDER ADULT OXYGEN Routine 08/13/2019 9:13 THERAPY AM EYEGLASS LENS GRINDER FL FLUORO LESS RAD - Routine 08/13/2019 8:43 Results f or THAN 1 HOUR (most inpatients AM EYEGLASS LENS GRINDER this proced ure and all are in the outpatients) results section. OPEN REDUCTION 08/13/2019 7:07 Fracture Hip INTERNAL AM EYEGLASS LENS GRINDER Intertrochanteric FIXATION FEMUR Closed Initial Left (HCC) CBC WITH Routine 08/13/2019 6:06 Results for DIFFERENTIAL, B AM EYEGLASS LENS GRINDER this procedu re are in the results section. GLUCOSE POCT, B Routine 08/13/2019 4:27 Results f or AM EYEGLASS LENS GRINDER this procedure are in the results section. HEMOGLOBIN A1C, Routine 08/12/2019 1:17 Results f or B PM EYEGLASS LENS GRINDER this procedure are in the results section. documented in this encounter Results (ABNORMAL) Vitamin B12 Assay (08/14/2019 6:00 AM EYEGLASS LENS GRINDER) Analysis Performed At Patho logist Time Signature Vitamin B12 >2000 (H) 232 - 1245 08/14/2019 [facility] Assay, S ng/L 3:11 PM EYEGLASS LENS GRINDER Comment: Biotin has been identified by the [...] 08/14/2019 6:00 AM 08/14/20 19 2:21 Venous) EYEGLASS LENS GRINDER PM EYEGLASS LENS GRINDER Ed L Dumont M.D. LAB BLOOD ADD-ON Performing Organization Address City/[facility]/ZIP Code Phon e Number [facility]- [address] [place] [address] [phone] [facility] [place] [address] System in [address] (ABNORMAL) Iron and Total Iron-Binding Capacity (08/14/2019 6:00 AM EYEGLASS LENS GRINDER) P athologist Signature Iron 15 (L) 50 - 150 08/14/2019 [facility] mcg/dL 6:49 AM EYEGLASS LENS GRINDER Total Iron 260 250 - 400 08/14/2019 [facility] Binding mcg/dL 6:49 AM EYEGLASS LENS GRINDER Capacity Percent 6 (L) 14 - 50 % 08/14/2019 [facility] Saturation 6:49 AM EYEGLASS LENS GRINDER Specimen Anatomical Collection Method Collection Time Receive d Time (Source) Location / / Volume Laterality Blood (Blood, 08/14/2019 6:00 AM 08/14/20 19 6:20 Venous) EYEGLASS LENS GRINDER AM EYEGLASS LENS GRINDER Ed Violette Dumont M.D. LAB BLOOD ADD-ON Performing Organization Address City/State/ZIP Code Phon e Number [facility]- [address] [place], [place] [address] [facility] [place] [address] System in [place] [address] (ABNORMAL) Hemoglobin (08/14/2019 6:00 AM EYEGLASS LENS GRINDER) P athologist Signature Hemoglobin 7.5 (L) 13.2 - 16.6 08/14/2019 [facility] g/dL 6:23 AM EYEGLASS LENS GRINDER Specimen Anatomical Collection Method Collection Time Receive d Time (Source) Location / / Volume Laterality Blood (Blood, 08/14/2019 6:00 AM 08/14/20 19 6:20 Venous) EYEGLASS LENS GRINDER AM EYEGLASS LENS GRINDER John Norman M.D. LAB BLOOD ADD-ON Performing Organization Address City/State/ZIP Code Phon e Number [facility]- [address] [place] [place], [place] [address] [facility] [place] [address] System in [place] [address] [place] Fluoro Less Than 1 Hour (08/13/2019 8:43 AM EYEGLASS LENS GRINDER) Specimen (Source) Anatomical Location Collection Method / Collectio n Time Received Time / Laterality Volume Narrative [address] [place] - 08/13/2019 8:45 AM [facility] This exam does not require a radiologist review or interpretation. Please refer to the patient's medical record on this date for clinical details. John Norman M.D. IMG FLUOROSCOPY PROCEDURES Performing Organization Address City/State/ZIP Code Phon e Number [address] [place] (ABNORMAL) CBC with Differential (08/13/2019 6:06 AM [facility]) [facility] gist Method Time Signature Hemoglobin 8.1 (L) 13.2 - 08/13/2019 [facility] 16.6 g/dL 6:32 AM [facility] Hematocrit 28.0 (L) 38.3 - 08/13/2019 [facility] 48.6 % 6:32 AM [facility] Erythrocytes 3.48 (L) 4.35 - 08/13/2019 [facility] 5.65 6:32 AM [facility] x10(12)/L MCV 80.5 78.2 - 08/13/2019 [facility] 97.9 fL 6:32 AM [facility] RBC Distrib Width 17.9 (H) 11.8 - 08/13/2019 [facility] 14.5 % 6:32 AM [facility] Platelet Count 179 135 - 317 08/13/2019 [facility] x10(9)/L 6:32 AM [facility] Leukocytes 6.7 3.4 - 9.6 08/13/2019 [facility] x10(9)/L 6:32 AM [facility] Neutrophils 5.06 1.56 - 08/13/2019 [facility] 6.45 6:32 AM [facility] x10(9)/L Lymphocytes 0.84 (L) 0.95 - 08/13/2019 [facility] 3.07 6:32 AM [facility] x10(9)/L Monocytes 0.73 0.26 - 08/13/2019 [facility] 0.81 6:32 AM [facility] x10(9)/L Eosinophils 0.06 0.03 - 08/13/2019 [facility] 0.48 6:32 AM [facility] x10(9)/L Basophils 0.03 0.01 - 08/13/2019 [facility] 0.08 6:32 AM [facility] x10(9)/L Specimen Anatomical Collection Method Collection Time Receive d Time (Source) Location / / Volume Laterality Blood (Blood, 08/13/2019 6:06 AM 08/13/20 19 6:28 Venous) [facility] AM [facility] Juliette Crenshawviolet PALACIO C.N.P., FidelNEricka LAB BLOOD ADD-ON Performing Organization Address City/State/ZIP Code Phon e Number [facility] [address] [place], [place] [address] [place] [address] System in [place] [address] [place] Glucose, POCT (08/13/2019 4:27 AM [facility]) athologist Signature Glucose, POCT, 101 70 - 140 08/13/2019 [facility] B mg/dL 4:27 AM [facility] Specimen Anatomical Collection Method Collection Time Receive d Time (Source) Location / / Volume Laterality Blood 08/13/2019 4:27 AM 9 4:34 [facility] AM [facility] Generic Rals LAB POCT ORDERABLES-MANUAL Performing Organization Address City/State/ZIP Code Phon e Number [facility]- [address] [place], [place] [address] [place] [address] [place] in [place] [address] [place] (ABNORMAL) Hemoglobin A1c (08/12/2019 1:17 PM [facility]) athologist Signature Hemoglobin A1c, 5.7 (H) 4.2 - 5.6 08/12/2019 [facility] B % 1:43 PM [facility] Comment: Hemoglobin A1c values of 5.7-6.4 percent indicate an increased risk for developing diabetes m roberto carlos. In diabetic patients, HbA1c goals should be discussed with healthcare provider. Specimen Anatomical Collection Method Collection Time Receive d Time (Source) Location / / Volume Laterality Blood (Blood, 08/12/2019 1:17 PM 08/12/20 19 1:28 Venous) [facility] PM [facility] John Norman M.D. LAB BLOOD ADD-ON Performing Organization Address City/State/ZIP Code Phon e Number [facility]- [address] [place], [place] [address] [place] [address] [place] in [place] documented in this encounter Visit [...] tablet 1,000 mg Given 08/16/2019 9:00 AM [facility] 1,000 mg (TYLENOL) 1,000 mg, oral, 3 times daily PRN, mild pain or score 1-3 of 10, headaches, fever, Starting on Thu08/12/19 at 1403 Given 08/15/2019 6:32 PM [facility] 1,000 mg Given 08/15/2019 8:46 AM [facility] 1,000 mg allopurinol tablet 300 mg (ZYLOPRIM) Given 08/15/2019 6:30 AM [facility] 300 mg 300 mg, oral, Daily, First dose on Thu08/13/19 at 0900 Given 08/14/2019 6:35 AM [facility] 300 mg allopurinol tablet 300 mg (ZYLOPRIM) Given 08/16/2019 6:22 AM [facility] 300 mg 300 mg, oral, Daily at bedtime, First dose (after last modification) on Thu08/16/19 at 0630 calcium carbonate chewable tablet Given 08/16/2019 6:0 9 AM [facility] 400 mg of calcium 400 mg of calcium (TUMS) 400 mg of calcium, oral, 2 times daily, First dose on Thu08/12/19 at 2100, Doses listed are in mg of elemental calcium. Take with food. 500 mg calcium carbonate contains 200 mg of elemental calcium. Given 08/15/2019 6:32 AM [facility] 400 mg of calcium Given 08/14/2019 5:25 PM [facility] 400 mg of calcium calcium carbonate chewable tablet Given 08/15/2019 5:4 3 PM [facility]ER 400 mg of calcium 400 mg of calcium (TUMS) 400 mg of calcium, oral, Every 2 hour PRN, heartburn, indigestion, Starting on Thu08/12/19 at 1413, Doses listed are in mg of elemental calcium. Take with food. 500 mg calcium carbonate contains 200 mg of elemental calcium. Given 08/13/2019 5:35 PM [facility] 400 mg of calcium ceFAZolin in NaCl 0.9 % IVPB 2 g New Bag 08/13/2019 11:59 PM EYEGL[facility]ER 2 g 220 mL/hr (ANCEF) 2 g, intravenous, at 220 mL/hr, Administer over 30 Minutes, Every 8 hours, First dose on 08/13/19 at 1530, For 2 doses, Start within 8 hours of last IV dose. premix bag, Drug Monitoring Program: Pharmacist to adjust medication dosing based on indication and drug clearance factors., Indications: Prophylaxis, surgical New Bag 08/13/2019 4:07 PM [facility] 2 g 220 mL/hr ferrous sulfate tablet 65 mg of iron 65 mg of iron, oral, Daily, First dose o n 08/14/19 at 1315, 325 mg contains 65 mg of elemental iron. furosemide tablet 40 mg (LASIX) Given 08/15/2019 5:43 PM [facility] 40 mg 40 mg, oral, Daily before dinner, First dose on Thu08/12/19 at 1600 Given 08/14/2019 5:25 PM [facility] 40 mg Given 08/13/2019 5:33 PM [facility] 40 mg HYDROmorphone injection 0.5 mg (DILAUDID ) Given 08/14/2019 8:17 PM [facility] 0.5 mg 0.5 mg, intravenous, Every 5 min PRN, moderate pain or score 4-6 of 10, severe pain or score 7-10 of 10, Starting on 08/13/19 at 0912, For 4 doses, PACU (only), Up to maximum total dose of 2 mg Given 08/14/2019 9:03 AM [facility] 0.5 mg HYDROmorphone injection 0.5 mg (DILAUDID ) Given 08/13/2019 8:06 PM [facility] 0.5 mg 0.5 mg, intravenous, Every 2 hour PRN, severe pain or score 7-10 of 10, Starting on 08/13/19 at 0942, For 2 doses, May administer if pain is greater than 7 after scheduled and PRN regimen exhausted. If pain remains greater than 7, notify primary service. Given 08/13/2019 1:31 PM [facility] 0.5 mg morphine injection 2 mg Given 08/15/2019 8:45 AM [facility] 2 mg 2 mg, intravenous, Every 2 hour PRN, severe pain or score 7-10 of 10, breakthrough pain, Starting on 08/12/19 at 1413, For breakthrough pain unrelieved 30 minutes after PRN oral pain medication is used or if unable to take oral pain medication. NaCl 0.9% infusion Restarted 08/13/2019 9:28 AM [facility] 100 mL/hr 100 mL/hr 100 mL/hr, intravenous, Continuous, Starting on 08/13/19 at 0000 New Bag 08/12/2019 11:47 PM [facility] 100 mL/hr 100 mL/hr NaCl 0.9% infusion Rate/Dose Verify 08/14/2019 12:09 AM [facility] 50 mL/hr 50 mL/hr 50 mL/hr, intravenous, Continuous, Starting on 08/13/19 at 0945 New Bag 08/13/2019 8:05 PM [facility] GR[facility] 50 mL/hr 50 mL/hr Continued from OR 08/13/2019 10:09 AM [facility] 50 mL/hr 50 mL/hr oxyCODONE IR tablet 10 mg (ROXICODONE) Given 08/16/2019 9:00 AM [facility] 10 mg 10 mg, oral, Every 4 hours PRN, severe pain or score 7-10 of 10, Starting on 08/13/19 at 0942, Second line therapy. If patient is greater than 7 after 2 hours, call service for new order. Given 08/15/2019 6:32 PM [facility] 10 mg Given 08/15/2019 1:31 PM [facility] 10 mg oxyCODONE IR tablet 5 mg (ROXICODONE) 5 mg, oral, Every 4 hours PRN, moderate pain or score 4-6 of 10, Starting on 08/13/19 at 0942, Second line therapy pantoprazole DR tablet 40 mg (PROTONIX) Given 08/16/2019 6:09 AM [facility] 40 mg 40 mg, oral, Daily before breakfast, First dose on 08/13/19 at 0700, pantoprazole 40 mg oral daily was interchanged for omeprazole 20 or 40 mg oral daily Swallow whole. Do NOT crush, chew, or split tablet. Given 08/15/2019 6:30 AM [facility] 40 mg Given 08/14/2019 6:36 AM [facility] 40 mg pediatric lfjwrfidnprd-jlpy-fdgpdrwe Given 08/14/2019 9:02 AM CS T 2 tablets chewable tablet 2 tablet (FLINTSTONES COMPLETE) 2 tablet, oral, Daily, First dose on 08/13/19 at 0900 pediatric lgackctvktof-ckmo-snzytpxz Given 08/14/2019 11:[address] 2 tablets chewable tablet 2 tablet (FLINTSTONES COMPLETE) 2 tablet, oral, Once, On 08/14/19 at 1145, For 1 dose, For total AM dose of 4 tablets pediatric kjflgkzqmjyw-tsrc-mihwyscx Given 08/16/2019 6:09 AM CS T 4 tablets chewable tablet 4 tablet (FLINTSTONES COMPLETE) 4 tablet, oral, Daily, First dose (after last modification) on 08/15/19 at 0630 Given 08/15/2019 6:32 AM [facility] 4 tablets sodium chloride 0.9 % injection 10 mL Given 08/15/2019 8:46 AM [facility] 10 mL 10 mL, intravenous, As needed, line care, Starting on Thu08/12/19 at 1410, Peripheral Intravenous Catheter and Rapid Infusion Catheter, prior to blood sampling, post blood transfusion or post blood sampling sodium chloride 0.9 % injection 3 mL Given 08/15/2019 10:09 PM [facility] 3 mL 3 mL, intravenous, Every 12 hours scheduled, First dose on Thu08/12/19 at 2100, Peripheral Intravenous Catheter and Rapid Infusion Catheter, when no infusion to maintain patency Given 08/14/2019 8:18 PM E[facility] 3 mL Given 08/12/2019 11:47 PM [facility] 3 mL tamsulosin 24 hr capsule 0.4 mg (FLOMAX) Given 08/15/2019 5:43 PM [facility] 0.4 mg 0.4 mg, oral, Daily, First dose on 08/13/19 at 0900, Swallow whole. Do NOT crush, chew or open capsule. Given 08/14/2019 9:02 AM [facility] 0.4 mg tamsulosin 24 hr capsule 0.4 [...] Recently Administered Medications Times are shown in [facility]. Scheduled Medication Order 08/14/2019 08/15/2019 08/16/2019 allopurinol [...] NOT crush, chew, or split tablet. pediatric ngtyvkbvqofk-pwsu-taoowvqc shaina wable tablet 2 tablet (FLINTSTONES COMPLETE) (CANCELED) 0902 (Given - Provider: Desirae Veras R.N.) 2 tablet, oral, Daily, First dose on 08/13/19 at 0900 pediatric umznuktvncqo-hlyz-zmffptgp shaina wable tablet 2 tablet (FLINTSTONES COMPLETE) (COMPLETED) 1144 (Given - Provider: Desirae Veras R.N.) 2 tablet, oral, Once, On 08/14/19 at 1145, For 1 dose, For total AM dose of 4 tablets pediatric szlofsoekvog-jicj-kvgmjmpz shaina wable tablet 4 tablet (FLINTSTONES COMPLETE) [...] mg of calcium, oral, Every 2 hour [place] N, heartburn, indigestion, Starting on Thu08/12/19 at [...] documented as of this encounter Care Teams Mend Worker Relationship Specialty Start Date End Date Cintia Cobb M.D. PCP - General 02/19/17 02/20/[address] [place] [phone] documented as of this encounter
--- OUTSIDE RECORDS SUMMARY | 2022-08-19 10:28 | XMS_ITS | Encounter Summary ---
:1960 Author Organization [facility] Address [address] [place] [address] Care Team Providers Name Role Phone Cintia Cobb M.D. Primary Care Provider [phone] Reason for Visit Physical Therapy (Routine) - Canceled Specialty Diagnoses / Procedures Referred By Contact Refer red To Contact Diagnoses Follow Up Examination Postoperative Visit Fracture Hip Intertrochanteric Closed Initial Left (HCC) Kacie Huerta APRN, [facility] Procedures PT Ongoing treatment C.N.P., D.N.P. [address] [place] [phone] Referral ID Status Reason Start Date Expiration Date Visits V isits Requested Authorized [id number] Canceled 10/13/2019 10/12/2020 99 99 Encounter Details Date Type Department Care Team Description 10/25/2019 Clinical Department of Kacie Huerta APRN, C.N.P., D.N.P. [address] [place] [phone] Follow Up Examination Postoperative Visi t; Support Rehabilitation Lesli Dias P.TPili [address] [place] [phone] Fracture Hip Intertrochanteric Closed In itial Left (HCC) Services in [address] [place] [address] Social History Tobacco Use Types Packs/Day Years [...] eval and treat Onset Date: 08/12/19 Payor: [facility] / Plan: [facility] BLUE PLUS HMO / Product Type: Medicaid HMO / No data recorded Epic Visit Count: 4 Patient comments: no new complaints. [facility] work on his home exerciseprogram. OBJECTIVE Pain: controlled TREATMENT Treatment today consisted of: Reviewed precautions at length today. Patient verbalized understanding. Perform the [employer]-Fit Total body ergometer times 10 minutes at [...] Dias P.T. Department of Rehabilitation Services in [address] [address] Dept: [phone] MATIC SPLICING MACHINE OPERATOR documented in this encounter Plan of Treatment Not on filedocumented as of this encounter Visit Diagnoses Diagnosis Follow Up Examination Postoperative Visi t Fracture Hip Intertrochanteric Closed In itial Left (HCC) documented in this encounter Additional Health Concerns Assessment Noted Time PHQ-9 Depression Total Score: 18 02/14/2013 9:53 AM CD T documented as of this encounter Care Teams Launch Commander [employer] Relationship Specialty Start Date End Date Cintia Cobb M.D. PCP - General 02/19/17 02/20/[address] [place] [phone] documented as of this encounter
--- OUTSIDE RECORDS SUMMARY | 2022-08-19 10:28 | XMS_ITS | Encounter Summary ---
:1960 Author Organization [facility] Address [address] [place] [address] Care Team Providers Name Role Phone Cintia Cobb M.D. 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 Wound Toe Without Damage To Nail Open Kiran bsequent; [address] Diabetes Mellitus Type 2 Peripheral Neur opathy ([facility]) [address] [place] [phone] Social History Tobacco Use Types Packs/Day Years [...] no questions or concerns at time ofdischarge. INTEGRATION DEVELOPER documented in this encounter Plan of [...] documented as of this encounter Care Teams Taproom Attendant Relationship Specialty Start Date End Date Cintia Cobb M.D. PCP - General 02/19/17 02/20/[address] [place] [phone] documented as of this encounter
--- OUTSIDE RECORDS SUMMARY | 2022-08-19 10:28 | XMS_ITS | Encounter Summary ---
:1960 Author Organization [facility] Address [address] [place] [address] Care Team Providers Name Role Phone Cintia Cobb M.D. Primary Care Provider [phone] Reason for Visit Physical Therapy (Routine) - Canceled Specialty Diagnoses / Procedures Referred By Contact Refer red To Contact Diagnoses Follow Up Examination Postoperative Visit Fracture Hip Intertrochanteric Closed Initial Left (HCC) Kacie Huerta APRN, [facility] Procedures PT Ongoing treatment C.N.P., D.N.P. [address] [place] [phone] Referral ID Status Reason Start Date Expiration Date Visits V isits Requested Authorized [id number] Canceled 10/13/2019 10/12/2020 99 99 Encounter Details Date Type Department Care Team Description 10/19/2019 Clinical Department of Kacie Huerta APRN, C.N.P., D.N.P. [address] [place] [phone] Follow Up Examination Postoperative Visi t; Support Rehabilitation Lesli Dias P.TPili [address] [place] [phone] Fracture Hip Intertrochanteric Closed In itial Left (HCC) Services in [address] [place] [phone] Social History Tobacco Use Types Packs/Day Years [...] Name: Laz Cuauhtemoc Luna Referring Provider: Kacie Heurta APRN, C.* Visit Diagnosis: 1. Follow Up Examination Postoperative Visit 2. Fracture Hip Intertrochanteric Closed Initial Left (HCC) Reason for Referral: PT eval and treat Onset Date: 08/12/19 Payor: [facility] / Plan: [facility] [employer] HMO / Product Type: Medicaid HMO [...] Dias P.T. Department of Rehabilitation Services in [address] [address] Dept: [phone] ER DELIVERY documented in this encounter Plan of Treatment Not on filedocumented as of this encounter Visit Diagnoses Diagnosis Follow Up Examination Postoperative Visi t Fracture Hip Intertrochanteric Closed In itial Left (HCC) documented in this encounter Additional Health Concerns Assessment Noted Time PHQ-9 Depression Total Score: 18 02/14/2013 9:53 AM CD T documented as of this encounter Care Teams Hand Frame Surgical Elastic Knitter Relationship Specialty Start Date End Date Cintia Cobb M.D. PCP - General 02/19/17 02/20/[id number] [phone] documented as of this encounter
--- OUTSIDE RECORDS SUMMARY | 2022-08-19 10:28 | XMS_ITS | Encounter Summary ---
:1960 Author Organization [facility] Address [address] [place] [address] Care Team Providers Name Role Phone Cintia Cobb M.D. Primary Care Provider [phone] Reason for Visit Auth/Cert Specialty Diagnoses / Procedures Referred By Contact Refer red To Contact Diagnoses Pain Joint Fracture Hip Closed Initial Left (HCC) Hip Fracture Procedures n/a Referral ID Status Reason Start Date Expiration Date Visits Requ ested Visits Authorized [id number] 1 1 Encounter Details Date Type Department Care Team Description 08/13/2019 Anesthesia Event [facility] MA[facility] OR Billy Luna, Suraj SAL WAN TONGUER, HARVEST MANAGER [place], [place] [address] [facility] [phone] [place] [phone] Anesthesia Record Procedure Summary Procedure Name Responsible Anesthesia Start Anesthesia Stop Time Anesthesiologist Time OPEN REDUCTION Billy Luna APRN, 08/13/19 0707 08/13 0901 INTERNAL FIXATION HARVEST MANAGER LEFT FEMUR (Left: Hip) Events Date Time [...] h andoff to the receiving staff during [facility] ch we 1. Identified the patient [...] by Left; Eric Lakhani R.N. [facility] ic-Backgroun chapis; 05/28/21 d, Scheduling (Removed [...] Procedure Summary Date: 08/13/19 Room / Location: [address] 0347 / [facility] - GI Anesthesia Start: 706 Anesthesia [...] Post Op nausea/vomiting: none Hydration status: euvolemic MATERNITY Anesthesia Procedure Notes - Billy Luna CRNA [...] completed successfully: successful procedure Other complications: none MATERNITY Anesthesia Preprocedure Evaluation - Billy Luna CRNA, R.N. - 08/13/2019 6:16 AM CST Preprocedure Anesthesia & H&P Assessment Procedure Summary Date/Time: 08/13/19 0700 Procedure: OPEN REDUCTION INTERNAL FIXATION LEFT FEMUR (Left ) Diagnosis: Fracture Hip Intertrochanteric Closed Initial Left (HCC) [S72.142A] Pre-op diagnosis: Fracture Hip Intertrochanteric Closed Initial Left (HCC) [S72.142A] Location: [address] 8569 / [facility] - GI Surgeon: John Norman M.D. [...] with patient /legal guardian or through an interpreter for the deaf. Risks/Benefits/Alternatives of Blood transfusion discussed with patient [...] due to failed or unsuccessful spinal placement. MATERNITY documented in this encounter Plan of Treatment Not on filedocumented as of this encounter Procedures Procedure Name Priority Date/Time Associated Comments Diagnosis ANESTHESIA REGIONAL Routine 08/13/2019 7:40 AM Re sults for this BLOCK RN MATERNITY procedure are i n the results section. documented in this encounter Results Regional Block (08/13/2019 7:40 AM RN MATERNITY) Narrative Billy Luna CRNA RPiliN. - 2018 7:40 AM RN MATERNITY Billy Luna CRNA, R.N. ? 08/13/2019 ??7:41 [...] % (5 mg/mL) Given 08/13/2019 7:24 AM RN MATERNITY 2.4 mL injection (MARCAINE) As needed, Starting on 08/13/19 at 0724, Anesthesia Intra-op ceFAZolin in NaCl 0.9 % IVPB 2 g (ANCEF) Given 08/13/2019 7:27 AM RN MATERNITY 2 g 2 g (rounded from 2.0825 [...] fentaNYL injection (SUBLIMAZE) Given 08/13/2019 7:13 AM RN MATERNITY 50 mcg intravenous, As needed, Starting on 08/13/19 at 0707, Anesthesia Intra-op Given 08/13/2019 7:07 AM RN MATERNITY 50 mcg lactated ringers New Bag 08/13/2019 7:07 AM RN MATERNITY intravenous, Continuous Infusion: Per Instructions PRN, Starting on 08/13/19 at 0707, Anesthesia Intra-op midazolam (PF) injection (VERSED) Given 08/13/2019 7:13 AM RN MATERNITY 1 mg intravenous, As needed, Starting on 08/13/19 at 0707, Anesthesia Intra-op Given 08/13/2019 7:07 AM RN MATERNITY 1 mg ondansetron (PF) injection (ZOFRAN) Given 08/13/2019 7:35 AM RN MATERNITY 4 mg As needed, Starting on 08/13/19 at 0735, Anesthesia Intra-op propofol 10 mg/mL infusion Rate/Dose 08/13/2019 8:34 25 mcg/kg/min 1 2.2 mL/hr (DIPRIVAN) Change AM RN MATERNITY intravenous, Continuous Infusion: Per Instructions PRN, Starting on 08/13/19 at 0730, Anesthesia Intra-op New Bag 08/13/2019 7:30 AM RN MATERNITY 50 mcg/kg/min 24.3 mL/hr documented in this encounter Additional Health Concerns Assessment Noted Time PHQ-9 Depression Total Score: 18 02/14/2013 9:53 AM CD T documented as of this encounter Care Teams Senior Product Engineer Relationship Specialty Start Date End Date Cintia Cobb M.D. PCP - General 02/19/17 02/20/[address] [phone] documented as of this encounter
--- OUTSIDE RECORDS SUMMARY | 2022-08-19 10:28 | XMS_ITS | Encounter Summary ---
:1960 Author Organization [facility] Address [address] [place] [address] Care Team Providers Name Role Phone Cintia Cobb M.D. Primary Care Provider [phone] Reason for Referral Physical Therapy (Routine) - Closed Specialty Diagnoses / Procedures Referred By Contact Refer red To Contact Diagnoses Follow Up Examination Postoperative Visit Fracture Hip Intertrochanteric Closed Initial Left (HCC) Kacie Huerta, HAKEEM, [facility] Procedures PT Evaluate and treat C.N.P., D.N.P. [address] [place] [address] Referral ID Status Reason Start Date Expiration Date Visits Requ ested Visits Authorized [id number] Closed 10/04/2019 10/03/2020 1 1 COMMUNICATIONS CONSULTANT Reason for Visit Appointment Request (Routine) - Closed Specialty Diagnoses / Procedures Referred By Contact Refer red To Contact Family Medicine Referral ID Status Reason Start Date Expiration Date Visits Requ ested Visits Authorized [id number] Closed 09/09/2019 09/08/2020 1 1 Encounter Details Date Type Department Care Team Description 10/04/2019 Office Visit Department of Kacie Huerta, Follow Up E xamination Postoperative Visit (Primary Dx); Orthopedic Surgery HAKEEM, C.N.P., Fracture Hip Intertrochanteric Closed Initial Left (HCC) in [place], FidelN.Tigist. [place] [id number] [address] [place] [phone] Social History Tobacco Use Types Packs/Day [...] the wound nurse. His questions were answered COMMUNICATIONS CONSULTANT documented in this encounter Plan of Treatment Not on filedocumented as of this encounter Results DX Hip And Pelvis Left 2-3 Views (10/04/2019 3:58 PM TELECOMMUNICATIONS CONSULTANT) Anatomical Region Laterality Modality Lower Extremity, Pelvis, Hip, Musculoskeletal RST LOS, Left Digital Radiography Musculoskeletal ARZ LOS, Muskuloskeletal FLA LOS Specimen (Source) Anatomical Collection Method Collection Time Re ceived Time Location / / Volume Laterality 10/04/2019 4:42 PM TELECOMMUNICATIONS CONSULTANT Impressions 10/04/2019 4:43 PM TELECOMMUNICATIONS CONSULTANT Prior surgical fixation across a subacute fracture of the intertrochanteric left femur. The fractu re line remains visible with interval healing change. No evidence of hardware loosening. Negative for acute fracture. Degenerative changes at the lumbosacral junction, both SI joints, and right hip. Demineralization. Narrative 10/04/2019 4:43 PM TELECOMMUNICATIONS CONSULTANT EXAM: DX HIP AND PELVIS LEFT 2-3 [...] documented as of this encounter Care Teams Cattle Examiner Relationship Specialty Start Date End Date Cintia Cobb M.D. PCP - General 02/19/17 02/20/[address] [phone] documented as of this encounter
--- OUTSIDE RECORDS SUMMARY | 2022-08-19 10:28 | XMS_ITS | Encounter Summary ---
:[address] [facility] Address [address] [place] [address] Care Team Providers Name Role Phone Cintia Cobb M.D. Primary Care Provider [phone] Reason for Visit Physical Therapy (Routine) - Closed Specialty Diagnoses / Procedures Referred By Contact Refer red To Contact Diagnoses Follow Up Examination Postoperative Visit Fracture Hip Intertrochanteric Closed Initial Left (HCC) Kacie Huerta APRN, [facility] Procedures PT Evaluate and treat C.N.P., D.N.P. [address] [place] [address] Referral ID Status Reason Start Date Expiration Date Visits Requ ested Visits Authorized [id number] Closed 10/04/2019 10/03/2020 1 1 Encounter Details Date Type Department Care Team Description 10/13/2019 Comprehensive Visit Department of Kacie Huerta APRN, C.N.P., D.N.P. [address] [place] [phone] Follow Up Examination Postoperative Visi t; Rehabilitation Ivonne Washington P.T., D.P.T. Fracture Hip Intertrochanteric Closed In itial Left (HCC) Services in [address] [phone] Social History Tobacco Use Types Packs/Day Years [...] eval and treat Onset Date: 08/12/19 Payor: [place] [employer] [facility] CARE / Plan: [facility] [employer] HMO / Product Type: Medicaid HMO / Exercise the World Visit Count: 1 PERTINENT MEDICAL / SURGICAL [...] His waspresent for the appointment. 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 Supine Quad Set - 10 [...] P.T., D.P.T. Department of Rehabilitation Services in [address] [address] Dept: [phone] AL MANAGER documented in this encounter Plan of Treatment Not on filedocumented as of this encounter Visit Diagnoses Diagnosis Follow Up Examination Postoperative Visi t Fracture Hip Intertrochanteric Closed In itial Left (HCC) documented in this encounter Additional Health Concerns Assessment Noted Time PHQ-9 Depression Total Score: 18 02/14/2013 9:53 AM CD T documented as of this encounter Care Teams Vice President Education Relationship Specialty Start Date End Date Cintia Cobb M.D. PCP - General 02/19/17 02/20/[address] [place] [phone] documented as of this encounter
--- OUTSIDE RECORDS SUMMARY | 2022-08-19 10:28 | XMS_ITS | Encounter Summary ---
:1960 Author Organization [facility] Address [address] [place] [address] Care Team Providers Name Role Phone Cintia Cobb M.D. Primary Care Provider [phone] Encounter Details Date Type Department Care Team Description 09/12/2019 Orders Only Department of [facility] Angélica Cobb Medicine, Jose Daniel Piper M[facility], in [address] [address] [place], [place] [phone] (W ork) [address] [phone] Social History Tobacco Use Types Packs/Day Years [...] documented as of this encounter Care Teams Vegetable Harvest Machine Operator Relationship Specialty Start Date End Date Cintia Cobb M.D. PCP - General 02/19/17 02/20/[address] [place] [phone] documented as of this encounter
--- OUTSIDE RECORDS SUMMARY | 2022-08-19 10:28 | XMS_ITS | Encounter Summary ---
:1960 Author Organization [facility] Address [address] [place] [address] Care Team Providers Name Role Phone Cintia Cobb M.D. Primary Care Provider Reason for Visit Reason Onset Date Comments Code Needed 09/15/2019 Encounter Details Date Type Department Care Team Description 09/15/2019 Clinical Communication Department of [facility] rowan, Code Needed Medicine, Jose Daniel Piper M.D. [facility], [address] [address] [place], [place] [phone] (Work) [phone] Social History Tobacco Use Types Packs/Day Years Used Date Smoking Tobacco: Never Smokeless Tobacco: Never Alcohol Use Standard Drinks/Week Comments No 0 (1 standard drink = 0.6 oz pure alcoho l) Sex Assigned at Date Recorded Not on file documented as of this encounter Miscellaneous Notes Telephone Encounter - Fani Mac - 09/15/2019 3:11 PM CST [facility] in [place] is calling requesting an ICD10 code for billing. Please advise. Call back number: [phone] S ANALYSIS MANAGER documented in this encounter Plan of Treatment Not on filedocumented as of this encounter Visit Diagnoses Not on filedocumented in this encounter Additional Health Concerns Assessment Noted Time PHQ-9 Depression Total Score: 18 02/14/2013 9:53 AM CD T documented as of this encounter Care Teams Senior Software Analyst Relationship Specialty Start Date End Date Cintia Cobb M.D. PCP - General 02/19/17 02/20/[id number] [address] documented as of this encounter
--- OUTSIDE RECORDS SUMMARY | 2022-08-19 10:29 | XMS_ITS | Encounter Summary ---
:1960 Author Organization [facility] Address [address] [place] [address] Care Team Providers Name Role Phone Cintia Cobb M.D. Primary Care Provider [phone] Encounter Details Date Type Department Care Team Description 12/16/2018 Orders Only Department of [facility] Bhumi Bran, Therapy in [place], M.S.N., [place] [address] [facility] [address] [place] [phone] [phone] Social History Tobacco Use Types Packs/Day Years [...] documented as of this encounter Care Teams Oncology Nurse Relationship Specialty Start Date End Date Cintia Cobb M.D. PCP - General 02/19/17 02/20/[address] [place] [phone] documented as of this encounter
--- OUTSIDE RECORDS SUMMARY | 2022-08-19 10:29 | XMS_ITS | Encounter Summary ---
:1960 Author Organization [facility] Address [address] [place] [address] Care Team Providers Name Role Phone Cintia Cobb M.D. Primary Care Provider Reason for Visit Reason Onset Date Comments Post Hospital Follow-up 04/16/2018 Encounter Details Date Type Department Care Team Description 04/16/2018 Clinical Communication Department of [facility] MedicineLaura R.N. Follow-up [address], in [address] [address] [facility] [phone] [place], [place] (Work) [phone] Social History Tobacco Use [...] Primary Care Providers: Cintia Cobb M.D. (General) [address] [place] [phone] Primary Care Provider Primary Care Provider ?? [...] documented as of this encounter Care Teams Investigative Writer Relationship Specialty Start Date End Date Cintia Cobb M.D. PCP - General 02/19/17 02/20/[address] [phone] documented as of this encounter
--- OUTSIDE RECORDS SUMMARY | 2022-08-19 10:29 | XMS_ITS | Encounter Summary ---
:1960 Author Organization [facility] Address [address] [place] [address] Care Team Providers Name Role Phone Cintia Cobb M.D. Primary Care Provider [phone] Encounter Details Date Type Department Care Team Description 08/12/2019 Orders Only Department of Orthopedic John Norman M.D. Surgery in [address] [address] [place] [address] [place] [address] [phone] Social History Tobacco Use Types Packs/Day Years [...] documented as of this encounter Care Teams Neurosurgical Nurse Relationship Specialty Start Date End Date Cintia Cobb M.D. PCP - General 02/19/17 02/20/[address] [phone] documented as of this encounter
--- OUTSIDE RECORDS SUMMARY | 2022-08-19 10:29 | XMS_ITS | Encounter Summary ---
:1960 Author Organization [facility] Address [address] [place] [address] Care Team Providers Name Role Phone Cintia Bullock M.D. 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 Anemia Iron Deficiency Blood Loss Chroni c; [facility], in [address] [place] [address] Frequenc y Urinary; [facility] Hypertension Essential Primary; [place], [place] Herniated Disc Lumbar; [address] [place] [phone] Screening Examination Prostate Cancer; [place], [place] [phone] Diarrhea [phone] (Work) [phone] Social History Tobacco Use Types Packs/Day Years Used Date Smoking Tobacco: Never Smokeless Tobacco: Never Alcohol Use Standard Drinks/Week Comments No 0 (1 standard drink = 0.6 oz pure alcoho l) Sex Assigned at Date Recorded Not on file documented as of this encounter Last Filed Vital Signs Vital Sign Reading Time Taken Comments Blood Pressure 134/85 09/28/2018 6:15 PM OYSTER CULTIVATOR Pulse 80 09/28/2018 6:15 PM OYSTER CULTIVATOR Temperature - - Respiratory Rate - - Oxygen Saturation 100% 09/28/2018 6:15 PM OYSTER CULTIVATOR Inhaled Oxygen Concentration - - Weight - [...] Cintia Copeland M.D. . 09/30/2018. 1:26 PM. ER CULTIVATOR Xochitl Hackett L.P.N. - 09/28/2018 6:45 PM CST Client has question about omeprazole script. is unclear on what he's speaking of. Ed believes they want to cover four months. Instructed to find out what problem is. ER CULTIVATOR documented in this encounter Miscellaneous Notes Addendum Note - Cintia Bullock M.D. - 09/28/2018 6:45 PM OYSTER CULTIVATOR Addended by: CINTIA BULLOCK on: 08/02/2019 06:53 PM Modules accepted: Orders ER CULTIVATOR documented in this encounter Plan of Treatment Not on filedocumented as of this encounter Procedures Procedure Name Priority Date/Time Associated Diagnosis Comme nts PROSTATE-SPECIFIC AG Routine 09/28/2018 7:08 PM Screening R esults for this (PSA) SCRN, S OYSTER CULTIVATOR Examination Prostate proced ure are in Cancer the results section. HEMOGLOBIN, B Routine 09/28/2018 7:08 PM Anemia Iron Results for this OYSTER CULTIVATOR Deficiency Blood procedure a re in Loss Chronic the results section. HEMOGLOBIN A1C, B Routine 09/28/2018 7:08 PM Diabetes Mellitus Results for this OYSTER CULTIVATOR Type 2 With Diabetic procedu re are in Neuropathy (HCC) the results section. documented in this encounter Results PSA (Prostate-Specific Antigen) Screen (09/28/2018 7:08 PM OYSTER CULTIVATOR) P athologist Signature Prostate-Specif 2.0 <=4.5 09/29/2018 [facility] ic Ag ng/mL 1:30 PM OYSTER CULTIVATOR [facility] Comment: Biotin [...] (Blood, 09/28/2018 7:08 PM 09/29/19 19 Venous) OYSTER CULTIVATOR 12:48 PM OYSTER CULTIVATOR Cintia Copeland M.D. LAB BLOOD ADD-ON Performing Organization Address City/State/ZIP Code Phon e Number [facility] [address] [place] [address] [place] [facility] (ABNORMAL) Hemoglobin (09/28/2018 7:08 PM OYSTER CULTIVATOR) athologist Signature Hemoglobin 7.8 (L) 13.2 - 16.6 09/28/2018 [facility] g/dL 7:30 PM [facility] Specimen Anatomical Collection Method Collection Time Receive d Time (Source) Location / / Volume Laterality Blood (Blood, 09/28/2018 7:08 PM 09/28/19 19 7:27 Venous) OYSTER CULTIVATOR PM OYSTER CULTIVATOR Cintia Copeland M.D. LAB BLOOD ADD-ON Performing Organization Address City/State/ZIP Code Phon e Number [facility] [address] [place] [address], [place] [address] [facility] (ABNORMAL) Hemoglobin A1c (09/28/2018 7:08 PM OYSTER CULTIVATOR) P athologist Signature Hemoglobin A1c, 5.9 (H) 4.2 - 5.6 09/28/2018 [facility] B % 7:[address] [facility] Comment: Hemoglobin A1c values of 5.7-6.4 percent indicate an increased risk for developing diabetes m ellitus. In diabetic patients, HbA1c goals should be discussed with healthcare provider. Specimen Anatomical Collection Method Collection Time Receive d Time (Source) Location / / Volume Laterality Blood (Blood, 09/28/2018 7:08 PM 09/28/19 19 7:27 Venous) OYSTER CULTIVATOR PM OYSTER CULTIVATOR Cintia Copeland M.D. LAB BLOOD ADD-ON Performing Organization Address City/State/ZIP Code Phon e Number [facility] [address] [place] [address] [facility] documented in this encounter Visit Diagnoses [...] documented as of this encounter Care Teams Nurse First Assist Relationship Specialty Start Date End Date Cintia Bullock M.D. PCP - General 02/19/17 02/20/[address] [place] [phone] documented as of this encounter
--- OUTSIDE RECORDS SUMMARY | 2022-08-19 10:29 | XMS_ITS | Encounter Summary ---
:1960 Author Organization [facility] Address [address] [place] [address] Care Team Providers Name Role Phone Cintia Cobb M.D. Primary Care Provider [phone] Reason for Visit Reason Comments Med Refill Encounter Details Date Type Department Care Team Description 06/20/2019 Refill Department of [facility] Angélica Cobb Med Refill Medicine, [place] Keely Piper [facility], in [address] [place] [phone] Social History Tobacco Use Types Packs/Day Years [...] documented as of this encounter Care Teams Scale Tester Relationship Specialty Start Date End Date Cintia Cobb M.D. PCP - General 02/19/17 02/20/[address] [place] [phone] documented as of this encounter
--- OUTSIDE RECORDS SUMMARY | 2022-08-19 10:29 | XMS_ITS | Encounter Summary ---
:1960 Author Organization [facility] Address [address] [place] [address] Care Team Providers Name Role Phone Cintia Cobb M.D. Primary Care Provider [phone] Encounter Details Date Type Department Care Team Description 04/21/2018 Hospital Department of [place], Hemorrhage Encounter Laboratory Luis Fernandez, Gastrointestina l Medicine in [address] [address] [place], [place] [phone] (Work) [phone] Social History Tobacco Use Types Packs/Day Years [...] Differential (04/21/2018 1:35 PM CDT) [facility] gist Method Time Signature Hemoglobin 8.4 (L) 13.2 - 04/21/2018 [facility] 16.6 g/dL 1:44 PM CDT [facility] Hematocrit 26.6 (L) 38.3 - 04/21/2018 [facility] 48.6 % 1:44 PM CDT [facility] Erythrocytes 2.99 (L) 4.35 - 04/21/2018 [facility] 5.65 1:44 PM CDT HEALTH x10(12)/L [facility] MCV 89.0 78.2 - 04/21/2018 [facility] 97.9 fL 1:44 PM T [facility] RBC Distrib Width 15.4 (H) 11.8 - 04/21/2018 [facility] 14.5 % 1:44 PM CDT [facility] Platelet Count 251 135 - 317 04/21/2018 [facility] x10(9)/L 1:44 PM CDT [facility] Leukocytes 8.8 3.4 - 9.6 04/21/2018 [facility] x10(9)/L 1:44 PM CDT [facility] Neutrophils 5.90 1.56 - 04/21/2018 [facility] 6.45 1:44 PM CDT [facility] x10(9)/[facility] Lymphocytes 1.91 0.95 - 04/21/2018 [facility] 3.07 1:44 PM CDT [facility] x10(9)/[facility] Monocytes 0.78 0.26 - 04/21/2018 [facility] 0.81 1:44 PM CDT HEALTH x10(9)/L [facility] Eosinophils 0.15 0.03 - 04/21/2018 [facility] 0.48 1:44 PM CDT HEALTH x10(9)/L [facility] Basophils 0.05 0.01 - 04/21/2018 [facility] 0.08 1:44 PM CDT [facility] x10(9)/[facility] Specimen Anatomical Collection Method Collection Time Receive d Time (Source) Location / / Volume Laterality Blood (Blood, 04/21/2018 1:35 PM 04/21/20 18 1:37 Venous) CDT PM CDT Kelvin Narvaez APRNNEricka LAB BLOOD ADD-ON Performing Organization Address City/State/ZIP Code Phon e Number [facility]- [address] [place] [address] [facility] documented in this encounter Visit Diagnoses Diagnosis Hemorrhage Gastrointestinal documented in this encounter Additional Health Concerns Assessment Noted Time PHQ-9 Depression Total Score: 18 02/14/2013 9:53 AM CD T documented as of this encounter Care Teams Metalizing Machine Operator Automatic Relationship Specialty Start Date End Date Cintia Cobb M.D. PCP - General 02/19/17 02/20/[address] [place] [address] DREW Arellano [phone] documented as of this encounter
--- OUTSIDE RECORDS SUMMARY | 2022-08-19 10:29 | XMS_ITS | Encounter Summary ---
:1960 Author Organization [facility] Address [address] [place] [address] Care Team Providers Name Role Phone Cintia Cobb M.D. Primary Care Provider [phone] Reason for Visit Reason Comments Med Refill Encounter Details Date Type Department Care Team Description 09/30/2018 Refill Department of [facility] Angélica Cobb Med Refill Medicine, Jose Daniel Piper M.D. [facility], in [address] [address] [place], [place] [address] [phone] Social History Tobacco Use Types Packs/Day Years [...] documented as of this encounter Care Teams Agriculture Inspector Relationship Specialty Start Date End Date Cintia Cobb M.D. PCP - General 02/19/17 02/20/[address] [place] [phone] documented as of this encounter
--- OUTSIDE RECORDS SUMMARY | 2022-08-19 10:29 | XMS_ITS | Encounter Summary ---
:1960 Author Organization [facility] Address [address] [place] [address] Care Team Providers Name Role Phone Cintia Cobb M.D. Primary Care Provider [phone] Reason for Visit Reason Comments Hip Pain 59 year old male admits . Pt was chasing his truck and slipped on the ice . Pt was unable to get up comp laints of left hip pain Encounter Details Date Type Department Care Team Description 08/12/2019 Emergency [place] [facility] Sancho Wise Hip Closed Department (Skip) Keely ALLEN, Initial Left (HCC) [address] M[facility]P.H. (Primary Dx) [place], [place] [address] [address] [place] [address] Social History Tobacco Use Types Packs/Day Years Used Date Smoking Tobacco: Never Smokeless Tobacco: Never Alcohol Use Standard Drinks/Week Comments No 0 (1 standard drink = 0.6 oz pure alcoho l) Sex Assigned at Date Recorded Not on file documented as of this encounter Last Filed Vital Signs Vital Sign Reading Time Taken Comments Blood Pressure 130/71 08/12/2019 11:46 AM TELECOMMUNICATIONS TECHNICIAN Pulse 69 08/12/2019 11:46 AM TELECOMMUNICATIONS TECHNICIAN Temperature 37.1 ??C (98.8 ??F) 08/12/2019 11:46 AM TELECOMMUNICATIONS TECHNICIAN Respiratory Rate 16 08/12/2019 8:57 AM TELECOMMUNICATIONS TECHNICIAN Oxygen Saturation 100% 08/12/2019 11:46 AM TELECOMMUNICATIONS TECHNICIAN Inhaled Oxygen Concentration - - Weight 83.3 kg (183 lb 10.3 oz) 08/12/2019 8:51 AM TELECOMMUNICATIONS TECHNICIAN Height 182.9 cm (6') 08/12/2019 8:51 AM TELECOMMUNICATIONS TECHNICIAN Body Mass Index 24.91 08/12/2019 8:51 AM TELECOMMUNICATIONS TECHNICIAN documented in this encounter Medications at Time [...] X-ray demonstrates nondisplaced intertrochanteric fracture. Orthopedics in [place] consulted. Orthopedics and anesthesia accept the patient for transfer. Hospitalist and [facility] emergency room accepts for transfer. Differential Diagnoses Conditions include, [...] Intertrochanteric fracture seen on x-ray, orthopedics and [place] called Final Diagnoses: as of Aug 12 1036 Fracture Hip Closed Initial Left (HCC) Sancho Wise III, M.D. (Skip), M.P.H. 08/12/191035 COMMUNICATIONS TECHNICIAN Mehreen Mascorro R.N. 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 Pt chased after truck. Pt slipped on ice from a standing position injuring left hip, denies all other injury Mehreen Mascorro R.N. 08/12/19 0840 COMMUNICATIONS TECHNICIAN documented in this encounter Plan of Treatment Not on filedocumented as of this encounter Procedures Procedure Name Priority Date/Time Associated Comments Diagnosis PROTHROMBIN TIME STAT 08/12/2019 9:55 Results for this (PT), P AM TELECOMMUNICATIONS TECHNICIAN procedure are i n the results section. CBC WITH STAT 08/12/2019 9:55 Results for this DIFFERENTIAL, B AM TELECOMMUNICATIONS TECHNICIAN procedure ar e in the results section. BASIC METABOLIC STAT 08/12/2019 9:55 Results f or this PANEL, S/P AM TELECOMMUNICATIONS TECHNICIAN procedure are i n the results section. ECG STAT 08/12/2019 9:24 Results for this AM TELECOMMUNICATIONS TECHNICIAN procedure are i n the results section. DX HIP AND PELVIS RAD - Semiurgent 08/12/2019 8:51 Res ults for this LEFT 2-3 VIEWS (Fast; most ED AM TELECOMMUNICATIONS TECHNICIAN procedure a re in patients; some the results inpatients) section. documented in this encounter Results Prothrombin Time (PT) (08/12/2019 9:55 AM TELECOMMUNICATIONS TECHNICIAN) P athologist Signature Prothrombin 8.8 8.8 - 11.9 08/12/2019 CNFL Time, P sec 10:09 AM TELECOMMUNICATIONS TECHNICIAN INR 0.9 0.9 - 1.2 08/12/2019 CNFL 10:09 AM TELECOMMUNICATIONS TECHNICIAN Comment: Standard intensity warfarin therapeutic range: 2.0 to 3.0 High intensity warfarin therapeutic rang e: 2.5 to 3.5 Specimen Anatomical Collection Method Collection Time Receive d Time (Source) Location / / Volume Laterality Blood (Blood, 08/12/2019 9:55 AM 08/12/20 9:55 Venous) TELECOMMUNICATIONS TECHNICIAN AM TELECOMMUNICATIONS TECHNICIAN Sancho (Skip) Frandy ALLEN M.D., M.P.H. LAB BLOOD ADD-ON Performing Organization Address City/State/ZIP Code Phon e Number [facility]- [address] [place] [address] [place] [address] [facility] [address] System in [place] [address] Bl (ABNORMAL) Basic Metabolic Panel (08/12/2019 9:55 AM TELECOMMUNICATIONS TECHNICIAN) P athologist Signature Potassium, P 4.6 3.6 - 5.2 08/12/2019 CNFL mmol/L 10:19 AM TELECOMMUNICATIONS TECHNICIAN Sodium, P 139 135 - 145 08/12/2019 CNFL mmol/L 10:19 AM TELECOMMUNICATIONS TECHNICIAN Chloride, P 100 98 - 107 08/12/2019 CNFL mmol/L 10:13 AM TELECOMMUNICATIONS TECHNICIAN Bicarbonate, P 27 22 - 29 08/12/2019 CNFL mmol/L 10:13 AM TELECOMMUNICATIONS TECHNICIAN Anion Gap, P 12 7 - 15 08/12/2019 CNFL 10:19 AM TELECOMMUNICATIONS TECHNICIAN BUN (Blood Urea 26 (H) 8 - 24 08/12/2019 CNFL Nitrogen), P mg/dL 10:13 AM TELECOMMUNICATIONS TECHNICIAN Creatinine 1.06 0.74 - 08/12/2019 CNFL 1.35 mg/dL 10:13 AM TELECOMMUNICATIONS TECHNICIAN eGFR-Black/Afri 87 >=60 08/12/2019 CNFL can [place] mL/min/BSA 10:13 AM TELECOMMUNICATIONS TECHNICIAN Comment: ----ADDITIONAL INFORMATION---- Estimated GFR calculated using the 2009 CKD_EPI creatinine equation. eGFR Non-Black/ 75 >=60 mL/min/BSA 08/12/2019 10:13 AM TELECOMMUNICATIONS TECHNICIAN CNFL Comment: ----ADDITIONAL INFORMATION---- Estimated GFR calculated using the 2009 CKD_EPI creatinine equation. Calcium, Total, P 9.2 8.8 - 10.2 mg/dL 08/12/2019 10:1 3 AM TELECOMMUNICATIONS TECHNICIAN CNFL Glucose, P 131 70 - 140 mg/dL 08/12/2019 10:13 AM TELECOMMUNICATIONS TECHNICIAN CNFL Specimen Anatomical Collection Method Collection Time Receive d Time (Source) Location / / Volume Laterality Blood (Blood, 08/12/2019 9:55 AM 08/12/20 9:55 Venous) TELECOMMUNICATIONS TECHNICIAN AM TELECOMMUNICATIONS TECHNICIAN Sancho (Skip) Frandy ALLEN M.D., M.P.H. LAB BLOOD ADD-ON Performing Organization Address City/State/ZIP Code Phon e Number [facility]- [address] [place] [address] [place] [address] (ABNORMAL) CBC with Differential, Blood (08/12/2019 9:55 AM TELECOMMUNICATIONS TECHNICIAN) [facility] gist Method Time Signature Hemoglobin 8.3 (L) 13.2 - 08/12/2019 CNFL 16.6 g/dL 10:03 AM TELECOMMUNICATIONS TECHNICIAN Hematocrit 28.1 (L) 38.3 - 08/12/2019 CNFL 48.6 % 10:03 AM TELECOMMUNICATIONS TECHNICIAN Erythrocytes 3.51 (L) 4.35 - 08/12/2019 CNFL 5.65 10:03 AM TELECOMMUNICATIONS TECHNICIAN x10(12)/L MCV 80.1 78.2 - 08/12/2019 CNFL 97.9 fL 10:03 AM TELECOMMUNICATIONS TECHNICIAN RBC Distrib Width 17.7 (H) 11.8 - 08/12/2019 CNFL 14.5 % 10:03 AM TELECOMMUNICATIONS TECHNICIAN Platelet Count 225 135 - 317 08/12/2019 CNFL x10(9)/L 10:03 AM TELECOMMUNICATIONS TECHNICIAN Leukocytes 5.8 3.4 - 9.6 08/12/2019 CNFL x10(9)/L 10:03 AM TELECOMMUNICATIONS TECHNICIAN Neutrophils 4.39 1.56 - 08/12/2019 CNFL 6.45 10:03 AM TELECOMMUNICATIONS TECHNICIAN x10(9)/L Lymphocytes 0.89 (L) 0.95 - 08/12/2019 CNFL 3.07 10:03 AM TELECOMMUNICATIONS TECHNICIAN x10(9)/L Monocytes 0.45 0.26 - 08/12/2019 CNFL 0.81 10:03 AM TELECOMMUNICATIONS TECHNICIAN x10(9)/L Eosinophils 0.07 0.03 - 08/12/2019 CNFL 0.48 10:03 AM TELECOMMUNICATIONS TECHNICIAN x10(9)/L Basophils 0.03 0.01 - 08/12/2019 CNFL 0.08 10:03 AM TELECOMMUNICATIONS TECHNICIAN x10(9)/L Specimen Anatomical Collection Method Collection Time Receive d Time (Source) Location / / Volume Laterality Blood (Blood, 08/12/2019 9:55 AM 08/12/20 9:55 Venous) TELECOMMUNICATIONS TECHNICIAN AM TELECOMMUNICATIONS TECHNICIAN Authorizing Provider Result Thom Higgins) Frandy ALLEN M.D., M.P.H. LAB BLOOD ADD-ON Performing Organization Address City/State/ZIP Code Phon e Number [facility]- [address] [place] [address] [place] [address] [place] [address] ECG 12 Lead (08/12/2019 9:24 AM TELECOMMUNICATIONS TECHNICIAN) P athologist Signature Ventricular Rate 63 BPM MUSE ECG/Min QRSD Interval 174 ms MUSE QT Interval 460 ms MUSE QTC Interval 470 ms MUSE R Converse -84 degrees MUSE T Wave Converse 81 degrees MUSE Specimen Anatomical Collection Method Collection Time Receive d Time (Source) Location / / Volume Laterality 08/12/2019 9:24 AM 9 9:28 TELECOMMUNICATIONS TECHNICIAN AM TELECOMMUNICATIONS TECHNICIAN Impressions MUSE - 08/12/2019 9:28 AM TELECOMMUNICATIONS TECHNICIAN Dual chamber electronic pacemaker Sinus rhythm When [...] Pelvis Left 2-3 Views (08/12/2019 8:51 AM TELECOMMUNICATIONS TECHNICIAN) Anatomical Region Laterality Modality Lower Extremity, Pelvis, Hip, Musculoskeletal RST LOS, Left Digital Radiography Musculoskeletal ARZ LOS, Muskuloskeletal FLA LOS Specimen (Source) Anatomical Collection Method Collection Time Re ceived Time Location / / Volume Laterality 08/12/2019 8:53 AM TELECOMMUNICATIONS TECHNICIAN Impressions 08/12/2019 8:58 AM TELECOMMUNICATIONS TECHNICIAN Nondisplaced left intertrochanteric trochanteric fracture. Femoral acetabular joints are congruent. Mild to moderate degenerative changes at both hips. Lumbosacral spondylosis. No suspic ious osseous lesion. Narrative 08/12/2019 8:58 AM TELECOMMUNICATIONS TECHNICIAN EXAM: DX HIP AND PELVIS LEFT 2-3 [...] of this encounter Care Teams Supply Chain Project Manager Relationship Specialty Start Date End Date Cintia Cobb M.D. PCP - General 02/19/17 02/20/[address] [place] [phone] documented as of this encounter
--- OUTSIDE RECORDS SUMMARY | 2022-08-19 10:29 | XMS_ITS | Encounter Summary ---
:1960 Author Organization [facility] Address [address] [place] [address] Care Team Providers Name Role Phone Cintia Cobb M.D. Primary Care Provider [phone] Encounter Details Date Type Department Care Team Description 08/02/2019 Orders Only Department of [facility] Terri Cobb (Primary Dx) Medicine, Jose Daniel Piper M.D. [facility] in [address] [place] [address] [place], [place] [phone] (W ork) [address] [phone] Social History Tobacco Use Types Packs/Day Years [...] documented as of this encounter Care Teams Commodity Industry Analyst Relationship Specialty Start Date End Date Cintia Cobb M.D. PCP - General 02/19/17 02/20/[address] [place] [phone] documented as of this encounter
--- OUTSIDE RECORDS SUMMARY | 2022-08-19 10:29 | XMS_ITS | Encounter Summary ---
:1960 Author Organization [facility] Address [address] [place] [address] Care Team Providers Name Role Phone Cintia Cobb M.D. Primary Care Provider Encounter Details Date Type Department Care Team Description 04/16/2018 Clinical Communication [facility] Jose Daniel Piper M.D. [address] [address] [place], [place] [phone] (Work) [phone] Social History Tobacco Use Types Packs/Day Years Used Date Smoking Tobacco: Never Smokeless Tobacco: Never Alcohol Use Standard Drinks/Week Comments No 0 (1 standard drink = 0.6 oz pure alcoho l) Sex Assigned at Date Recorded Not on file documented as of this encounter Miscellaneous Notes Telephone Encounter - Suzie Hurt - 04/16/2018 12:39 PM CDT Renetta from [facility] is calling needing a Quantity Limit Exemption for the Omeprazole 20mg. Please reach out to [facility] at [phone]. Thank you! documented in this encounter Plan of Treatment Not on filedocumented as of this encounter Visit Diagnoses Not on filedocumented in this encounter Additional Health Concerns Assessment Noted Time PHQ-9 Depression Total Score: 18 02/14/2013 9:53 AM CD T documented as of this encounter Care Teams Financial Aid Coordinator Relationship Specialty Start Date End Date Cintia Cobb M.D. PCP - General 02/19/17 02/20/[address] [place] [phone] documented as of this encounter
--- OUTSIDE RECORDS SUMMARY | 2022-08-19 10:29 | XMS_ITS | Encounter Summary ---
:1960 Author Organization [facility] Address [address] [place] [address] Care Team Providers Name Role Phone Cintia Cobb M.D. Primary Care Provider [phone] Reason for Visit Reason Onset Date Comments Communication 09/29/2018 Encounter Details Date Type Department Care Team Description 09/29/2018 Clinical Communication Department of [facility] Medicine, Cintia [facility], in S, RaysaD. [address] [phone] Social History Tobacco Use Types Packs/Day Years Used Date Smoking Tobacco: Never Smokeless Tobacco: Never Alcohol Use Standard Drinks/Week Comments No 0 (1 standard drink = 0.6 oz pure alcoho l) Sex Assigned at Date Recorded Not on file documented as of this encounter Miscellaneous Notes Telephone Encounter - Laura Mejia R.N. - 09/30/2018 11:48 AM REAL ESTATE LOAN PROCESSOR Pharmacy contacted and updated directions given. ESTATE LOAN PROCESSOR Telephone Encounter - Emelia Ackerman - 09/30/2018 11:39 AM CST Pharmacy is stating that they did not receive the new script with updated directions. Please send again. ESTATE LOAN PROCESSOR Telephone Encounter - Laura Mejia R.N. - 09/30/2018 10:17 AM REAL ESTATE LOAN PROCESSOR Pharmacy notified that a new script has been sent with updated directions. ESTATE LOAN PROCESSOR Telephone Encounter - Cintia Cobb M.D. - 09/30/2018 10:14 AM REAL ESTATE LOAN PROCESSOR I attempted to remove the directions of bid. It should be daily for life. Cintia Segura ESTATE LOAN PROCESSOR Telephone Encounter - Laura Mejia R.N. - 09/29/2018 3:43 PM CST Unable to review 09/28/18 visit note, not yet completed. Pharmacy states the instructions state once daily (script refilled as once daily), but then additional instructions state BID for an indefinite amount of time. Please advise. Juan drug will need updated directions. ESTATE LOAN PROCESSOR Telephone Encounter - Eli Armstrong - 09/29/2018 3:28 PM CST [facility] in [place] called to clarify RX sent for Ed from Dr Song, please call them at [phone] ESTATE LOAN PROCESSOR documented in this encounter Plan of Treatment Not on filedocumented as of this encounter Visit Diagnoses Not on filedocumented in this encounter Additional Health Concerns Assessment Noted Time PHQ-9 Depression Total Score: 18 02/14/2013 9:53 AM CD T documented as of this encounter Care Teams Marbleizing Machine Tender Relationship Specialty Start Date End Date Cintia Cobb M.D. PCP - General 02/19/17 02/20/[address] [phone] documented as of this encounter
--- OUTSIDE RECORDS SUMMARY | 2022-08-19 10:29 | XMS_ITS | Encounter Summary ---
:1960 Author Organization [facility] Address [address] [place] [address] Care Team Providers Name Role Phone Cintia Cobb M.D. Primary Care Provider [phone] Encounter Details Date Type Department Care Team Description 10/22/2018 Orders Only Department of [facility] Angélica Cobb Medicine, Jose Daniel Piper M.D. Clinic, in [address] [address] [place], [place] [phone] (W ork) [address] [phone] Social History Tobacco Use Types Packs/Day Years [...] as of this encounter Care Teams Fire Investigation Manager Relationship Specialty Start Date End Date Cintia Cobb M.D. PCP - General 02/19/17 02/20/[address] [place] [phone] documented as of this encounter
--- OUTSIDE RECORDS SUMMARY | 2022-08-19 10:29 | XMS_ITS | Encounter Summary ---
:1960 Author Organization [facility] Address [address] [place] [address] Care Team Providers Name Role Phone Cintia Cobb M.D. Primary Care Provider [phone] Reason for Visit Reason Comments Post Hospital Follow-up Outpatient (Routine) - Closed Specialty Diagnoses / Procedures Referred By Contact Refer red To Contact Diagnoses Hemorrhage Gastrointestinal Luis Varghese, [facility] HAKEEM, C.N.P. [address] [place] [address] Referral ID Status Reason Start Date Expiration Date Visits Requ ested Visits Authorized [id number] Closed 04/15/2018 04/15/2019 1 1 Encounter Details Date Type Department Care Team Description 04/21/2018 Office Visit Department of [facility] Tanja Munoz, P.A.-C. [address] [place] [address] Hemorrhage Gastrointestinal (Primary Dx) ; Medicine, Cintia Bella M.D. [address] [place] [phone] Anemia Of Chronic Disease; [facility], in Weakness Le g Left; [place], [facility]; [place] Diabetes Mellitus Type 2 Wit h Diabetic Neuropathy (HCC); [address] [place] [address] [place] [address] Social History Tobacco Use Types Packs/Day Years [...] He was admitted to the hospital in [place] and had an EGD showing an ulcer. [...] possible left L5 radiculopathy. Cintia S Song Morton M.D. IMG CT PROCEDURES documented in this [...] as of this encounter Care Teams Tube Winder Hand Relationship Specialty Start Date End Date Cintia Cobb M.D. PCP - General 02/19/17 02/20/[address] [place] [phone] documented as of this encounter
--- OUTSIDE RECORDS SUMMARY | 2022-08-19 10:29 | XMS_ITS | Encounter Summary ---
:1960 Author Organization [facility] Address [address] [place] [address] Care Team Providers Name Role Phone Cintia Cobb M.D. Primary Care Provider Encounter Details Date Type Department Care Team Description 05/27/2019 Clinical Communication [facility], Jose Daniel Piper M.D. [address] [address] [place], [place] [phone] (Work) [phone] Social History Tobacco Use Types Packs/Day Years [...] done. Please follow up with her at [phone]. 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 PCP - General 02/19/17 02/20/[address] [phone] documented as of this encounter
--- OUTSIDE RECORDS SUMMARY | 2022-08-19 10:29 | XMS_ITS | Encounter Summary ---
:1960 Author Organization [facility] Address [address] [place] [address] Care Team Providers Name Role Phone Cintia Cobb M.D. Primary Care Provider Encounter Details Date Type Department Care Team Description 02/25/[address] [facility] Pharmacy - Edita El D.O. [address] [place] , [facility] [address] [place] [phone] [place] [address] (Wo rk) Social History Tobacco [...] documented as of this encounter Care Teams Svp Digital Ad Sales Relationship Specialty Start Date End Date Cintia Cobb M.D. PCP - General 02/19/17 02/20/[address] [phone] documented as of this encounter
--- OUTSIDE RECORDS SUMMARY | 2022-08-19 10:29 | XMS_ITS | Encounter Summary ---
:1960 Author Organization [facility] Address [address] [place] [address] Care Team Providers Name Role Phone Cintia Cobb M.D. Primary Care Provider [phone] Reason for Visit Reason Onset Date Comments CT scan disc 04/30/2018 Encounter Details Date Type Department Care Team Description 04/30/2018 Clinical Communication Department of [facility] Fernanda Buckner CT scan disc Medicine, Jose Daniel Lindsay R.N. [address] [address] [place], [place] [phone] (Work) [phone] Social History Tobacco Use Types Packs/Day Years [...] Disc of 04/21/18 CT scan taken from frontload driver to Med/ iron installerTiffany, per pt request as he cannot get to the frontload driver before noon tomorrow (Thursday). documented in this encounter Plan of Treatment Not on filedocumented as of this encounter Visit Diagnoses Not on filedocumented in this encounter Additional Health Concerns Assessment Noted Time PHQ-9 Depression Total Score: 18 02/14/2013 9:53 AM CD T documented as of this encounter Care Teams Service Vehicle Operator Relationship Specialty Start Date End Date Cintia Cobb M.D. PCP - General 02/19/17 02/20/[address] [place] [phone] documented as of this encounter
--- OUTSIDE RECORDS SUMMARY | 2022-08-19 10:29 | XMS_ITS | Encounter Summary ---
:1960 Author Organization [facility] Address [address] [place] [address] Care Team Providers Name Role Phone Cintia Cobb M.D. Primary Care Provider [phone] Reason for Visit Reason Comments Med Refill Encounter Details Date Type Department Care Team Description 07/17/2018 Refill Department of Infusion Cintia Cobb Med Refill Therapy in Feliz Arellano M.D. [address] [phone] (Wo rk) Social History Tobacco Use Types Packs/Day Years Used Date Smoking Tobacco: Never Smokeless Tobacco: Never Alcohol Use Standard Drinks/Week Comments No 0 (1 standard drink = 0.6 oz pure alcoho l) Sex Assigned at Date Recorded Not on file documented as of this encounter Miscellaneous Notes Telephone Encounter - Cintia Cobb M.D. - 07/20/2018 7:22 PM HALL WORKER Rx filled. WORKER documented in this encounter Plan of Treatment Not on filedocumented as of this encounter Visit Diagnoses Not on filedocumented in this encounter Additional Health Concerns Assessment Noted Time PHQ-9 Depression Total Score: 18 02/14/2013 9:53 AM CD T documented as of this encounter Care Teams Correction Lieutenant Relationship Specialty Start Date End Date Cintia Cobb M.D. PCP - General 02/19/17 02/20/[address] [phone] documented as of this encounter
--- OUTSIDE RECORDS SUMMARY | 2022-08-19 10:29 | XMS_ITS | Encounter Summary ---
:1960 Author Organization [facility] Address [address] [place] [address] Care Team Providers Name Role Phone Cintia Cobb M.D. Primary Care Provider [phone] Encounter Details Date Type Department Care Team Description 04/26/2018 Orders Only [facility] First S, M.D. Floor [address] [address] [phone] (Wo rk) Social History Tobacco Use Types [...] as of this encounter Care Teams Technical Director Relationship Specialty Start Date End Date Cintia Cobb M.D. PCP - General 02/19/17 02/20/[phone] [place] [phone] documented as of this encounter
--- OUTSIDE RECORDS SUMMARY | 2022-08-19 10:29 | XMS_ITS | Encounter Summary ---
:1960 Author Organization [facility] Address [address] [place] [address] Care Team Providers Name Role Phone Cintia Cobb M.D. Primary Care Provider [phone] Encounter Details Date Type Department Care Team Description 06/03/2018 Orders Only Department of [facility] Terri Cobbbetes Mellitus Type MedicineJose Daniel M.D. 2 (HCC) (Primary Dx) [facility], in [address] [place] [phone] [place], [place] [phone] (W ork) [phone] Social History Tobacco Use Types Packs/Day Years [...] documented as of this encounter Care Teams Recooperer Relationship Specialty Start Date End Date Cintia Cobb M.D. PCP - General 02/19/17 02/20/[address] [place] [phone] documented as of this encounter
--- OUTSIDE RECORDS SUMMARY | 2022-08-19 10:29 | XMS_ITS | Encounter Summary ---
:1960 Author Organization [facility] Address [address] [place] [address] Care Team Providers Name Role Phone Cintia Cobb M.D. Primary Care Provider [phone] Reason for Visit Auth/Cert Specialty Diagnoses / Procedures Referred By Contact Refer red To Contact Diagnoses Pain Joint Fracture Hip Closed Initial Left (HCC) Hip Fracture Procedures n/a Referral ID Status Reason Start Date Expiration Date Visits Requ ested Visits Authorized [id number] 1 1 Encounter Details Date Type Department Care Team Description 08/13/[address] [facility] MAIN OR John Norman, OPEN REDUCTION INTERNAL [address] [place] [address] [address] [phone] [place] [address] (Wo rk) Social History Tobacco [...] Comments Blood Pressure 121/74 08/13/2019 4:18 AM STRAW HAT MACHINE OPERATOR Pulse 63 08/13/2019 4:18 AM STRAW HAT MACHINE OPERATOR Temperature 37.2 ??C (99 ??F) 08/13/2019 4:18 AM STRAW HAT MACHINE OPERATOR Respiratory Rate 18 08/13/2019 4:18 AM STRAW HAT MACHINE OPERATOR Oxygen Saturation 97% 08/13/2019 4:18 AM STRAW HAT MACHINE OPERATOR Inhaled Oxygen Concentration - - Weight 81 kg (178 lb 9.2 oz) 08/13/2019 4:31 AM STRAW HAT MACHINE OPERATOR Height 182.9 cm (6') 08/12/2019 12:43 PM STRAW HAT MACHINE OPERATOR Body Mass Index 23.98 08/12/2019 12:43 PM STRAW HAT MACHINE OPERATOR documented in this encounter Discharge Summaries Laz Dumont M.D. - 08/16/2019 12:00 PM CST DISCHARGE SUMMARY BRIEF OVERVIEW Discharge Provider: Laz Dumont M.D. Primary Care Providers: Cintia Cobb M.D. ([address] [address] Primary Care Provider Primary Care Provider Other [...] INTERNAL FIXATION LEFT FEMUR John Norman M.D. 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 Had surgery for repair on August 13 [...] and needs to get back to driving [employer] a soon as possible to help with [...] 45 minutes discharge care by me today W HAT MACHINE OPERATOR documented in this encounter Discharge Instructions Discharge Instr - Non [place] Bedril-YyuNdxpzl-Gsgrxblqqm, Becky - 08/16/2019 12:01 PM CST Please have Patient seen by PCP on rounds in 3-5 days. W HAT MACHINE OPERATOR documented in this encounter Medications at [...] L hip fx Onset Date: 08/12/19 Payor: [facility] [place] CARE / Plan: [facility] [employer] HMO / Product Type: Medicaid HMO / [...] Activity Level: Answer: Up with Assistance 08/12/19 9414 OBJECTIVE Pain Assessment Pain Score: (not rated [...] min Functional G-code Worksheet Marya Paredes P.T.A. [facility], Third Floor [address] [facility] [address] Dept: [phone] W HAT MACHINE OPERATOR Associated attestation - Stephanie Diaz P.T. - 08/18/2019 7:58 AM STRAW HAT MACHINE OPERATOR Physical Therapy Dismissal Snapshot Patient was seen [...] Dr. Dumont. OMAR confirmed with [facility] that thereare no beds today. OMAR met [...] to go to short term rehab at [address] [place] [address] in [place] today. Ed contacted his , Julissa and confirmed that his friend can not transport until 3pm or later. SWS [place] [facility] [place] [address] admissions and confirmed discharge today, by 12noon. Nurse Levar completed the Nurse to Nurse. SWS contacted [facility] and [facility] and they both are not available for transport today. SWS contacted [employer] and set up 12noon to transport. O: Discharge Planning for today to arrive no later than 3pm to [address] [place] [address] A: Ed was fully engaged in our conversation and open to going to a SNF upon discharge to decrease the time he is away from work for recovery. P: Discharge today - W HAT MACHINE OPERATOR Dumont, Laz Oakes M.D. 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 Patient definitely not interested in a intermediate after hospitalization, particularly with experiences his mother had in retirement facilities. Ed used a 24h00 in [place] to start letter correspondences with dozens of Filipina women around 2003. Julissa, his , is from [facility] ([facility] near [facility], [facility] 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 Had surgery for repair on August 13 [...] help I still recommend it. 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 Spoke with nurse, PT, social work. W HAT MACHINE OPERATOR Marya Paredes P.T.A. - 08/15/2019 11:26 AM CST Physical Therapy Inpatient Treatment SUBJECTIVE Patient's Name: Laz Cuauhtemoc Luna Referring/Attending Provider: Rahel Ashby M.D. Medical Diagnosis: Pain Joint [M25.50] Fracture Hip Closed Initial Left (HCC) [S72.002A] Reason for Referral: L hip fx Onset Date: 08/12/19 Payor: [employer] CARE / Plan: [facility] [employer] HMO / Product Type: Medicaid HMO / [...] in use of gait belt as leg materials handling equipment operator to assist left LE to edge [...] min Functional G-code Worksheet Marya Paredes P.T.A. [facility], Third Floor [address] [facility] [address] Dept: [phone] W HAT MACHINE OPERATOR Ml Ha L.S.W. - 08/15/2019 11:10 AM [...] SWS passed this information onto Hillary Sotomayor/Nurse Stockroom Worker. SWS Shared with Ed that a person [...] that he is not interested in any intermediate or and followed up with [address] [place] [address]/ Nathalia [phone]., Fax: [phone]. O: Discharge planning continued, Ed was sitting up in the chair and fully engaged in the conversation A: Ed enjoys sarcastic humor and consistent communication. Ed becomes frustrated if he feels he is being misinformed. P: Discharge likely tomorrow, per Dr. Dumont. Transport to be determined. W HAT MACHINE OPERATOR Kacie Huerta APRN, C.N.P., D.N.P. - 08/15/2019 [...] aware. Will have him follow up in [place] with Orthopedics in 2 weeks. 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 Patient definitely not interested in a intermediate after hospitalization, particularly with experiences his mother had in retirement facilities. Ed used a 24h00 in [place] to start letter correspondences with dozens of Filipina women around 2003. Julissa, his , is from [facility] near active [facility], [facility]). 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 Had surgery for repair on August 13 [...] with patient, 2 visits so far today. W HAT MACHINE OPERATOR Lacie Donaldson P.Randy. - 08/13/2019 12:48 PM CST Attempted to get patient up today. Patient continues to have numbness in legs. Will wait to start PTtomorrow 08/14/19. W HAT MACHINE OPERATOR Alyssa Shepherd O.T. - 08/13/2019 11:43 AM [...] mg (LOVENOX) 08/14/2019 40 mg, subcutaneous, Daily W HAT MACHINE OPERATOR documented in this encounter H&P Notes John [...] precede with surgical treatment. John Norman M.D. W HAT MACHINE OPERATOR Source Note - Juliette Bettencourt APRN, C.N.P., D.N.P. - 08/12/2019 2:22 PM STRAW HAT MACHINE OPERATOR SUBJECTIVE CHIEF COMPLAINT Mr. Laz Luna is a 59 y.o. male who presents with left hip pain. HISTORY OF PRESENT ILLNESS Patient transferred from [place] emergency room this afternoon. Patient works by [employer] and fell on ice while loading his [...] but plans on getting a ride to [facility] tomorrow. Patient scheduled for the [...] Procedure: ESOPHAGOGASTRODUODENOSCOPY; Surgeon: Rene Carlson M.D.; Location: [facility] GI LAB ??? LAPAROSCOPIC [...] education level: None Occupational History ??? 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 Financial [...] on phone: None Gets together: None Attends taoism service: None Active member of club or [...] labs, xray and diagnostics from admission and [place] ED. ASSESSMENT / PLAN #1 Fracture Hip [...] of plan of care, chart review, and putl-to-clmz interview. W HAT MACHINE OPERATOR Juliette Bettencourt APRN, C.N.P., D.N.P. - 08/12/2019 2:22 PM CST SUBJECTIVE CHIEF COMPLAINT Mr. Laz Luna is a 59 y.o. male who presents with left hip pain. HISTORY OF PRESENT ILLNESS Patient transferred from [place] emergency room this afternoon. Patient works by [employer] and fell on ice while loading his [...] but plans on getting a ride to [facility] tomorrow. Patient scheduled for the [...] Procedure: ESOPHAGOGASTRODUODENOSCOPY; Surgeon: Rene Carlson M.D.; Location: [facility] GI LAB ??? LAPAROSCOPIC [...] education level: None Occupational History ??? 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 Financial [...] on phone: None Gets together: None Attends taoism service: None Active member of club or [...] labs, xray and diagnostics from admission and [place] ED. ASSESSMENT / PLAN #1 Fracture Hip [...] of plan of care, chart review, and ffmt-aa-qraf interview. W HAT MACHINE OPERATOR documented in this encounter Consult Notes Alyssa [...] L hip fx Onset Date: 08/12/19 Payor: [facility] [facility] CARE / Plan: [facility] HMO / Product Type: Medicaid HMO [...] ESOPHAGOGASTRODUODENOSCOPY N/A 04/13/2018 Procedure: ESOPHAGOGASTRODUODENOSCOPY; Surgeon: Rene Carlosn M.D.; Location: [facility] GI LAB ??? LAPAROSCOPIC ASSISTED - GASTRIC BYPASS N/A 11/21/2014 Laparoscopic assisted - Gastric bypass ??? OPEN REDUCTION INTERNAL FIXATION FEMUR Left 08/13/2019 Procedure: OPEN REDUCTION INTERNAL FIXATION LEFT FEMUR; Surgeon: John Norman M.D.; Location:[facility] OR ??? OTHER CONVERTED SHX (SEE COMMENT) N/A 01/19/2017 >Implantation of dual-chamber permanent pacemaker. ??? OTHER SURGICAL HISTORY cystoscopy ??? UPPER GASTROINTESTINAL ENDOSCOPY N/A 11/21/2014 Upper gastrointestinal endoscopy History of Present Illness: Patient slipped and fell on the ice. 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 [facility]'s 3-year data, as reported at [facility] 2017, indicates a cut off of 39.4 or greater in daily activity is a fair to good accurate prediction of discharge home. Source: AM-PAC ???6 -Clicks?? functional assessment scores predict acute care hospital discharge destination. Punchboard Filling Machine Operator. 2014 May; 94 (9): 1252-61. 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 Currently, patient presents with impairments including R hip fx c ORIF completed 08/13/19 resulting in the following functional deficits: impaired ADL/IADL and functional/ADL transfers. Laz Luna is a 59 y.o. year old direct admit to [facility] following a fall on ice resulting in R hip fracture requiring ORIF completed 08/13/19, admission 08/12/19. Today, Mr. Laz Luna actively participated in education regarding regaining PLOF c basic ADL. Educated in WBAT status. Educatedin adaptive equipment for regaining self care independence. Reports has long travel information center supervisor and long shoe horn at home from [...] like to get back to work in [facility], does state he would not [...] toileting safety in a.m. Bathroom Safety Sheet [id number] provided as patient education with recommendations written [...] Daily Activities CMS Modifier: MARYJO Shepherd O.T. [facility], Third Floor [address] [facility] [address] Dept: [phone] W HAT MACHINE OPERATOR Lacie Donaldson P.T. - 08/14/2019 10:45 AM CST Consults Physical Therapy Inpatient Evaluation/Treatment SUBJECTIVE Patient's Name: Laz Luna Referring/Attending Provider: Rahel Ashby M.D. Medical Diagnosis: Pain Joint [M25.50] Fracture Hip Closed Initial Left (HCC) [S72.002A] Reason for Referral: L hip fx Onset Date: 08/12/19 Payor: [facility] [facility] CARE / Plan: [employer] / Product Type: Medicaid O / [...] Procedure: ESOPHAGOGASTRODUODENOSCOPY; Surgeon: Rene Carlson M.D.; Location: [facility] GI LAB ??? LAPAROSCOPIC ASSISTED - GASTRIC BYPASS N/A 11/21/2014 Laparoscopic assisted - Gastric bypass ??? OTHER CONVERTED SHX (SEE COMMENT) N/A 01/19/2017 >Implantation of dual-chamber permanent pacemaker. ??? OTHER SURGICAL HISTORY cystoscopy ??? UPPER GASTROINTESTINAL ENDOSCOPY N/A 11/21/2014 Upper gastrointestinal endoscopy History of Present Illness: Patient slipped and fell on the ice. 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 [facility], Third Floor [address] [facility] [address] Dept: [phone] W HAT MACHINE OPERATOR Ml Ha L.S.W. - 08/12/2019 3:45 PM CST Discharge Planning Assessment SUBJECTIVE Referral Data Referral Source: Early Screen for Discharge Planning Referral Reason: (59 year old, Admit Diagnosis: Hip Fracture) Who was present during the interview?: Patient Skin Diver Services Used: No Psychosocial assessment, Coping, adjustment [...] Patient Information Primary Caregiver: Self(Spouse Julissa h: [phone], c:[phone], supportive neighbors and friends) Legal Information Legal [...] the basement) Support Systems: (Spouse Julissa h: [phone], c:[phone], supportive neighbors and friends) Anticipated Discharge Destination: Residential Care or Intermediate Care Facility Recommended Discharge [...] he could likely do outpatient PT in [place] at [address] [place] [address], if he would prefer a location closer than [place]. He stated that he may prefer to stay in the [facility] and [place] is the closest. He stated that he is open to [facility] sending a referral to [address] [place] [address] to determine if they have the ability to do outpatient PT for him or any other services. SWS received notice from [address] [place] [address] has accepted him for admission for short term rehab. SWS sent a message to [address] [place] [address] asking what outpatient PT services they provide. Discussed transportation options with patient and , including using a private vehicle, privately paying for a mobility van $50 or more and non-emergent ambulance. Social Work Services ([facility]) advised that if insurance does not cover the charge for non-emergent ambulance, it could be a minimum of $3,000 private pay. SWS explained that our physicians have documented the medical need for the transport, although, that does not assure coverage. The patient plans to discharge via friend or neighbor, becausehis Julissa does not drive. Social Work Services ([facility]) contact information, including a phone number, was provided to patient, if any need or questions arise. He plans to discharge to home and drive home if needed. Signed by: Maria Guadalupe Feng 08/12/2019 W HAT MACHINE OPERATOR documented in this encounter Nursing Notes Anika [...] as needed- d/c to 3 links in [place]. Denise Morris R.N. - 08/16/2019 5:16 AM [...] Tylenol & Oxycodone for adequate pain control. W HAT MACHINE OPERATOR Desirae Veras R.N. - 08/14/2019 6:39 PM [...] encouraged per self and he refuses assistance. W HAT MACHINE OPERATOR Ella Milan RAugustine - 08/14/2019 5:18 AM [...] CST PAS completed and sent to [facility]. PAS [id number] W HAT MACHINE OPERATOR Hanny Dowling R.N. - 08/13/2019 10:24 AM CST Patient became very agitated with nurse after she called him sir at the beginning of shift. Patient requested that he has a new nurse. Security Guard Supervisor was notified and spoke to the patient [...] need for pain meds. NPO since midnight W HAT MACHINE OPERATOR Ellen Horne R.N. - 08/12/2019 6:18 PM CST Shift Goals: Patient to remain free from falls Identify possible barriers to meeting goals/advancing plan of care: none End of Shift Summary: Patient remained free of falls this shift. W HAT MACHINE OPERATOR documented in this encounter OR Notes Op Note - John Norman M.D. - 08/13/2019 7:48 AM CST FULL OP NOTE Procedure(s) (LRB): OPEN REDUCTION INTERNAL FIXATION LEFT FEMUR (Left) Surgeon(s) and Role: * John Norman M.D. - Primary Statistical Clerk Advertising: Lesli Zuñiga L.P.N. Anesthesia Type Regional Pre-operative Diagnosis Fracture Hip Intertrochanteric Closed Initial Left (HCC) Post-operative Diagnosis Fracture Hip Intertrochanteric Closed Initial Left (HCC) Full Operative Note Details PROCEDURE(S) Open reduction, intramedullary fixation of left intertrochanteric femur fracture. SURGEON(S) John Norman M.D. ED EDUCATIONAL AIDE: None. ANESTHESIA TYPE Spinal anesthesia. PRE-OPERATIVE DIAGNOSIS [...] closed using #1 Vicryl in an interrupted jntxgn-xv-zpttj fashion, followed by copious irrigation. Subcutaneous tissue [...] Implant Name Type Inv. Item Serial No. Agent Producer Lot No. LRB No. Used NL FEM TFN RT 130D [id number] - SNA - [id number] Hardware e.g. pins/screws/rods NL FEM TFN RT 130D [id number] NA [employer] [id number] Left [address] 10.5X110 - SNA - [id number] Hardware e.g. pins/screws/rods SCRW TFN FEN ST 10.5X110 NA [employer] [id number] Left 1 SCRW [facility] TI T25 5X38 - [id number] Hardware e.g. pins/screws/rods SCRW [facility] T25 5X38 [employer] Left 1 Intra-op Medications Date/Time Order Dose Route Action Action by 08/13/2019 0901 ceFAZolin in NaCl 0.9 % IVPB 2 g (ANCEF) intravenous Anesthesia Volume Adjustment Kalia Luna 08/13/2019 0727 ceFAZolin in NaCl 0.9 % IVPB 2 g (ANCEF) 2 g intravenous Given Kalia Luna M.D. W HAT MACHINE OPERATOR Brief Op Note - John Norman M.D. - 08/13/2019 7:48 AM CST BRIEF OP NOTE Procedure(s) (LRB): OPEN REDUCTION INTERNAL FIXATION LEFT FEMUR (Left) Surgeon(s) and Role: * John Norman M.D. - Primary Statistical Clerk Advertising: Lesli Zuñiga L.P.N. Anesthesia Type Regional Pre-operative Diagnosis Fracture Hip Intertrochanteric Closed Initial Left (HCC) Post-operative Diagnosis Fracture Hip Intertrochanteric Closed Initial Left (HCC) Brief Operative Note Details Specimens None Drains None Estimated Blood Loss None Implants Implant Name Type Inv. Item Serial No. Agent Producer Lot No. LRB No. Used NL FEM TFN RT 130D [id number] - SNA - [id number] Hardware e.g. pins/screws/rods NL FEM TFN RT 130D [id number] NA [employer] [id number] Left [address] 10.5X110 - SNA - [id number] Hardware e.g. pins/screws/rods SCRW TFN FEN ST 10.5X110 NA [employer] [id number] Left 1 SCRW LCK [employer] TI T25 5X38 - [id number] Hardware e.g. pins/screws/rods SCRW LCK GILES TI T25 5X38 [employer] Left 1 John Norman M.D. W HAT MACHINE OPERATOR documented in this encounter Miscellaneous Notes Hospital Course - Rahel Ashby M.D. - 08/13/2019 12:26 PM CST 59 y/o male who presented to the ED with left hip pain workup revealed nondisplaced left intertrochanteric trochanteric fracture. Patient also has anemia of chronic disease 08/13 s/p ORIF, trend hemoglobin. W HAT MACHINE OPERATOR documented in this encounter Plan of Treatment Not on filedocumented as of this encounter Procedures Procedure Name Priority Date/Time Associated Diagnosis Comme nts ADULT OXYGEN Routine 08/15/2019 8:00 THERAPY AM STRAW HAT MACHINE OPERATOR ADULT OXYGEN Routine 08/14/2019 8:01 THERAPY PM STRAW HAT MACHINE OPERATOR ADULT OXYGEN Routine 08/14/2019 8:01 THERAPY AM STRAW HAT MACHINE OPERATOR IRON AND TOT Routine 08/14/2019 6:00 Results for IRON-BINDING AM STRAW HAT MACHINE OPERATOR this procedure CAPACITY, S/P are in the results section. HEMOGLOBIN, B Routine 08/14/2019 6:00 Results for AM STRAW HAT MACHINE OPERATOR this procedure are in the results section. VITAMIN B12 Routine 08/14/2019 6:00 Results for ASSAY, S AM STRAW HAT MACHINE OPERATOR this procedure are in the results section. ADULT OXYGEN Routine 08/13/2019 8:01 THERAPY PM STRAW HAT MACHINE OPERATOR ADULT OXYGEN Routine 08/13/2019 9:13 THERAPY AM STRAW HAT MACHINE OPERATOR ADULT OXYGEN Routine 08/13/2019 9:13 THERAPY AM STRAW HAT MACHINE OPERATOR FL FLUORO LESS RAD - Routine 08/13/2019 8:43 Results f or THAN 1 HOUR (most inpatients AM STRAW HAT MACHINE OPERATOR this proced ure and all are in the outpatients) results section. OPEN REDUCTION 08/13/2019 7:07 Fracture Hip INTERNAL AM STRAW HAT MACHINE OPERATOR Intertrochanteric FIXATION FEMUR Closed Initial Left (HCC) CBC WITH Routine 08/13/2019 6:06 Results for DIFFERENTIAL, B AM STRAW HAT MACHINE OPERATOR this procedu re are in the results section. GLUCOSE POCT, B Routine 08/13/2019 4:27 Results f or AM STRAW HAT MACHINE OPERATOR this procedure are in the results section. HEMOGLOBIN A1C, Routine 08/12/2019 1:17 Results f or B PM STRAW HAT MACHINE OPERATOR this procedure are in the results section. documented in this encounter Results (ABNORMAL) Vitamin B12 Assay (08/14/2019 6:00 AM STRAW HAT MACHINE OPERATOR) Analysis Performed At Patho logist Time Signature Vitamin B12 >2000 (H) 232 - 1245 08/14/2019 ECL[facility] Assay, S ng/L 3:11 PM STRAW HAT MACHINE OPERATOR Comment: Biotin has been identified by the [facility] as a potential interfering substance. ??Higher concentr ations of biotin may be found in multivitamins, hair/nail supple ments, and workout supplements. ??If the result does not ma [facility] clinical observations, repeat testing after patient refrains fr om the use of supplements for at least 12 hours. Specimen Anatomical Collection Method Collection Time Receive d Time (Source) Location / / Volume Laterality Blood (Blood, 08/14/2019 6:00 AM 08/14/20 19 2:21 Venous) STRAW HAT MACHINE OPERATOR PM STRAW HAT MACHINE OPERATOR Laz Dumont M.D. LAB BLOOD ADD-ON Performing Organization Address City/State/ZIP Code Phon e Number [facility]- [address] [place] [address] [phone] [facility] [place] [address] [address] (ABNORMAL) Iron and Total Iron-Binding Capacity (08/14/2019 6:00 AM STRAW HAT MACHINE OPERATOR) P athologist Signature Iron 15 (L) 50 - 150 08/14/2019 [facility] mcg/dL 6:49 AM STRAW HAT MACHINE OPERATOR Total Iron 260 250 - 400 08/14/2019 [facility] Binding mcg/dL 6:49 AM STRAW HAT MACHINE OPERATOR Capacity Percent 6 (L) 14 - 50 % 08/14/2019 [facility] Saturation 6:49 AM STRAW HAT MACHINE OPERATOR Specimen Anatomical Collection Method Collection Time Receive d Time (Source) Location / / Volume Laterality Blood (Blood, 08/14/2019 6:00 AM 08/14/20 19 6:20 Venous) STRAW HAT MACHINE OPERATOR AM STRAW HAT MACHINE OPERATOR Laz Dumont M.D. LAB BLOOD ADD-ON Performing Organization Address City/State/ZIP Code Phon e Number [facility]- [address] [place] [address] [place] [address] System in [place] [facility] (ABNORMAL) Hemoglobin (08/14/2019 6:00 AM STRAW HAT MACHINE OPERATOR) P athologist Signature Hemoglobin 7.5 (L) 13.2 - 16.6 08/14/2019 [facility] g/dL 6:23 AM STRAW HAT MACHINE OPERATOR Specimen Anatomical Collection Method Collection Time Receive d Time (Source) Location / / Volume Laterality Blood (Blood, 08/14/2019 6:00 AM 08/14/20 19 6:20 Venous) STRAW HAT MACHINE OPERATOR AM STRAW HAT MACHINE OPERATOR John Norman M.D. LAB BLOOD ADD-ON Performing Organization Address City/State/ZIP Code Phon e Number [facility]- [address] [place], [place] [address] [facility] [place] [address] System in [place] [address] [place] Fluoro Less Than 1 Hour (08/13/2019 8:43 AM STRAW HAT MACHINE OPERATOR) Specimen (Source) Anatomical Location Collection Method / Collectio n Time Received Time / Laterality Volume Narrative 8000 LOS SEMN - 08/13/2019 8:45 AM STRAW HAT MACHINE OPERATOR This exam does not require a radiologist review or interpretation. Please refer to the patient's medical record on this date for clinical details. John Norman M.D. IMG FLUOROSCOPY PROCEDURES Performing Organization Address City/State/ZIP Code Phon e Number 8000 [facility] [place] (ABNORMAL) CBC with Differential (08/13/2019 6:06 AM STRAW HAT MACHINE OPERATOR) [facility] Method Time Signature Hemoglobin 8.1 (L) 13.2 - 08/13/2019 [facility] 16.6 g/dL 6:32 AM STRAW HAT MACHINE OPERATOR Hematocrit 28.0 (L) 38.3 - 08/13/2019 [facility] 48.6 % 6:32 AM STRAW HAT MACHINE OPERATOR Erythrocytes 3.48 (L) 4.35 - 08/13/2019 [facility] 5.65 6:32 AM STRAW HAT MACHINE OPERATOR x10(12)/L MCV 80.5 78.2 - 08/13/2019 [facility] 97.9 fL 6:32 AM STRAW HAT MACHINE OPERATOR RBC Distrib Width 17.9 (H) 11.8 - 08/13/2019 [facility] 14.5 % 6:32 AM STRAW HAT MACHINE OPERATOR Platelet Count 179 135 - 317 08/13/2019 [facility] x10(9)/L 6:32 AM STRAW HAT MACHINE OPERATOR Leukocytes 6.7 3.4 - 9.6 08/13/2019 [facility] x10(9)/L 6:32 AM STRAW HAT MACHINE OPERATOR Neutrophils 5.06 1.56 - 08/13/2019 [facility] 6.45 6:32 AM STRAW HAT MACHINE OPERATOR x10(9)/L Lymphocytes 0.84 (L) 0.95 - 08/13/2019 [facility] 3.07 6:32 AM STRAW HAT MACHINE OPERATOR x10(9)/L Monocytes 0.73 0.26 - 08/13/2019 [facility] 0.81 6:32 AM STRAW HAT MACHINE OPERATOR x10(9)/L Eosinophils 0.06 0.03 - 08/13/2019 [facility] 0.48 6:32 AM STRAW HAT MACHINE OPERATOR x10(9)/L Basophils 0.03 0.01 - 08/13/2019 [facility] 0.08 6:32 AM STRAW HAT MACHINE OPERATOR x10(9)/L Specimen Anatomical Collection Method Collection Time Receive d Time (Source) Location / / Volume Laterality Blood (Blood, 08/13/2019 6:06 AM 08/13/20 19 6:28 Venous) STRAW HAT MACHINE OPERATOR AM STRAW HAT MACHINE OPERATOR Isaac Tompkins APRN.P., FidelNPiliP. LAB BLOOD ADD-ON Performing Organization Address City/State/ZIP Code Phon e Number [facility]- [address] [place] [address] [facility] [place] [address] System in [place] [address] Glucose, POCT (08/13/2019 4:27 AM STRAW HAT MACHINE OPERATOR) athologist Signature Glucose, POCT, 101 70 - 140 08/13/2019 [facility] B mg/dL 4:27 AM STRAW HAT MACHINE OPERATOR Specimen Anatomical Collection Method Collection Time Receive d Time (Source) Location / / Volume Laterality Blood 08/13/2019 4:27 AM 9 4:34 STRAW HAT MACHINE OPERATOR AM STRAW HAT MACHINE OPERATOR Generic Rals LAB POCT ORDERABLES-MANUAL Performing Organization Address City/[facility]/ZIP Code Phon e Number [facility] [address] [place] [address] [facility] [place] [address] System in [place] [address] (ABNORMAL) Hemoglobin A1c (08/12/2019 1:17 PM STRAW HAT MACHINE OPERATOR) athologist Signature Hemoglobin A1c, 5.7 (H) 4.2 - 5.6 08/12/2019 [facility] B % 1:43 PM STRAW HAT MACHINE OPERATOR Comment: Hemoglobin A1c values of 5.7-6.4 percent indicate an increased risk for developing diabetes m ellitus. In diabetic patients, HbA1c goals should be discussed with healthcare provider. Specimen Anatomical Collection Method Collection Time Receive d Time (Source) Location / / Volume Laterality Blood (Blood, 08/12/2019 1:17 PM 08/12/20 19 1:28 Venous) STRAW HAT MACHINE OPERATOR PM STRAW HAT MACHINE OPERATOR John Norman M.D. LAB BLOOD ADD-ON Performing Organization Address City/State/ZIP Code Phon e Number [facility]- [address] [place], [place] [address] [facility] [place] [address] System in [place] [address] documented in this encounter Visit Diagnoses Diagnosis [...] tablet 1,000 mg Given 08/16/2019 9:00 AM STRAW HAT MACHINE OPERATOR 1,000 mg (TYLENOL) 1,000 mg, oral, 3 times daily PRN, mild pain or score 1-3 of 10, headaches, fever, Starting on Thu08/12/19 at 1403 Given 08/15/2019 6:32 PM STRAW HAT MACHINE OPERATOR 1,000 mg Given 08/15/2019 8:46 AM STRAW HAT MACHINE OPERATOR 1,000 mg allopurinol tablet 300 mg (ZYLOPRIM) Given 08/16/2019 6:22 AM STRAW HAT MACHINE OPERATOR 300 mg 300 mg, oral, Daily at bedtime, First dose (after last modification) on Thu08/16/19 at 0630 calcium carbonate chewable tablet Given 08/16/2019 6:0 9 AM STRAW HAT MACHINE OPERATOR 400 mg of calcium 400 mg of calcium (TUMS) 400 mg of calcium, oral, 2 times daily, First dose on Thu08/12/19 at 2100, Doses listed are in mg of elemental calcium. Take with food. 500 mg calcium carbonate contains 200 mg of elemental calcium. Given 08/15/2019 6:32 AM STRAW HAT MACHINE OPERATOR 400 mg of calcium Given 08/14/2019 5:25 PM STRAW HAT MACHINE OPERATOR 400 mg of calcium calcium carbonate chewable tablet Given 08/15/2019 5:4 3 PM STRAW HAT MACHINE OPERATOR 400 mg of calcium 400 mg of calcium (TUMS) 400 mg of calcium, oral, Every 2 hour PRN, heartburn, indigestion, Starting on Thu08/12/19 at 1413, Doses listed are in mg of elemental calcium. Take with food. 500 mg calcium carbonate contains 200 mg of elemental calcium. Given 08/13/2019 5:35 PM STRAW HAT MACHINE OPERATOR 400 mg of calcium ferrous sulfate tablet 65 mg of iron 65 mg of iron, oral, Daily, First dose o n 08/14/19 at 1315, 325 mg contains 65 mg of elemental iron. furosemide tablet 40 mg (LASIX) Given 08/15/2019 5:43 PM STRAW HAT MACHINE OPERATOR 40 mg 40 mg, oral, Daily before dinner, First dose on Thu08/12/19 at 1600 Given 08/14/2019 5:25 PM STRAW HAT MACHINE OPERATOR 40 mg Given 08/13/2019 5:33 PM STRAW HAT MACHINE OPERATOR 40 mg morphine injection 2 mg Given 08/15/2019 8:45 AM STRAW HAT MACHINE OPERATOR 2 mg 2 mg, intravenous, Every 2 hour PRN, severe pain or score 7-10 of 10, breakthrough pain, Starting on Thu08/12/19 at 1413, For breakthrough pain unrelieved 30 minutes after PRN oral pain medication is used or if unable to take oral pain medication. oxyCODONE IR tablet 10 mg (ROXICODONE) Given 08/16/2019 9:00 AM STRAW HAT MACHINE OPERATOR 10 mg 10 mg, oral, Every 4 hours PRN, severe pain or score 7-10 of 10, Starting on 08/13/19 at 0942, Second line therapy. If patient is greater than 7 after 2 hours, call service for new order. Given 08/15/2019 6:32 PM STRAW HAT MACHINE OPERATOR 10 mg Given 08/15/2019 1:31 PM STRAW HAT MACHINE OPERATOR 10 mg oxyCODONE IR tablet 5 mg (ROXICODONE) 5 mg, oral, Every 4 hours PRN, moderate pain or score 4-6 of 10, Starting on 08/13/19 at 0942, Second line therapy pantoprazole DR tablet 40 mg (PROTONIX) Given 08/16/2019 6:09 AM STRAW HAT MACHINE OPERATOR 40 mg 40 mg, oral, Daily before breakfast, First dose on 08/13/19 at 0700, pantoprazole 40 mg oral daily was interchanged for omeprazole 20 or 40 mg oral daily Swallow whole. Do NOT crush, chew, or split tablet. Given 08/15/2019 6:30 AM STRAW HAT MACHINE OPERATOR 40 mg Given 08/14/2019 6:36 AM STRAW HAT MACHINE OPERATOR 40 mg pediatric zxgpgoucfaus-heee-nzrpgyix Given 08/16/2019 6:09 AM CS T 4 tablets chewable tablet 4 tablet (FLINTSTONES COMPLETE) 4 tablet, oral, Daily, First dose (after last modification) on 08/15/19 at 0630 Given 08/15/2019 6:32 AM STRAW HAT MACHINE OPERATOR 4 tablets sodium chloride 0.9 % injection 10 mL Given 08/15/2019 8:46 AM STRAW HAT MACHINE OPERATOR 10 mL 10 mL, intravenous, As needed, line care, Starting on Thu08/12/19 at 1410, Peripheral Intravenous Catheter and Rapid Infusion Catheter, prior to blood sampling, post blood transfusion or post blood sampling sodium chloride 0.9 % injection 3 mL Given 08/15/2019 10:09 PM STRAW HAT MACHINE OPERATOR 3 mL 3 mL, intravenous, Every 12 hours scheduled, First dose on Thu08/12/19 at 2100, Peripheral Intravenous Catheter and Rapid Infusion Catheter, when no infusion to maintain patency Given 08/14/2019 8:18 PM STRAW HAT MACHINE OPERATOR 3 mL Given 08/12/2019 11:47 PM STRAW HAT MACHINE OPERATOR 3 mL tamsulosin 24 hr capsule 0.4 [...] Recently Administered Medications Times are shown in STRAW HAT MACHINE OPERATOR. Scheduled Medication Order 08/14/2019 08/15/2019 08/16/2019 allopurinol [...] NOT crush, chew, or split tablet. pediatric alysitwozdgl-uqxg-jvgcrnyh shaina wable tablet 2 tablet (FLINTSTONES COMPLETE) (CANCELED) 0902 (Given - Provider: Desirae Veras R.N.) 2 tablet, oral, Daily, First dose on 08/13/19 at 0900 pediatric gmxwatciknpc-ybfb-uzhropei shaina wable tablet 2 tablet (FLINTSTONES COMPLETE) (COMPLETED) 1144 (Given - Provider: Desirae Veras R.N.) 2 tablet, oral, Once, On 08/14/19 at 1145, For 1 dose, For total AM dose of 4 tablets pediatric ifuvthngkjjh-jhwy-anlnuiop shaina wable tablet 4 tablet (FLINTSTONES COMPLETE) [...] mg of calcium, oral, Every 2 hour IN N, heartburn, indigestion, Starting on Thu08/12/19 at [...] as of this encounter Care Teams Director Public Service Relationship Specialty Start Date End Date Cintia Cobb M.D. PCP - General 02/19/17 02/20/[id number] [address] documented as of this encounter
--- OUTSIDE RECORDS SUMMARY | 2022-08-19 10:29 | XMS_ITS | Encounter Summary ---
:1960 Author Organization [facility] Address [address] [place] [address] Care Team Providers Name Role Phone Cintia Cobb M.D. Primary Care Provider [phone] Reason for Visit MRI/CAT/PET Scan (Routine) - Closed Specialty Diagnoses / Procedures Referred By Contact Refer red To Contact Radiology Diagnoses Pain Low Back Unspecified Cintia Cobb [facility] Region Procedures CT Lumbar Spine without IV Contrast OK CT LUMBAR SPINE WO [facility] HC CT LUMBAR SPINE WO SINGHRST OK CT LUMBAR SPINE WO SAMARA Piper M.D. [address] [place] [address] Referral ID Status Reason Start Date Expiration Date Visits Requ ested Visits Authorized [id number] Closed 04/07/2018 04/07/2019 1 1 Encounter Details Date Type Department Care Team Description 04/21/2018 Hospital Encounter Department of Radiology [facility] [place] Cintia Arellano M.D. [address] [phone] Social History Tobacco Use Types Packs/Day Years [...] documented as of this encounter Care Teams Sight Effects Specialist Relationship Specialty Start Date End Date Cintia Cobb M.D. PCP - General 02/19/17 02/20/[address] [place] [phone] documented as of this encounter
--- OUTSIDE RECORDS SUMMARY | 2022-08-19 10:29 | XMS_ITS | Encounter Summary ---
:1960 Author Organization [facility] Address [address] [place] [address] Care Team Providers Name Role Phone Cintia Cobb M.D. Primary Care Provider [phone] Reason for Visit Reason Comments Med Refill Encounter Details Date Type Department Care Team Description 02/24/2019 Refill Department of [facility] Angélica Cobb Med Refill Medicine, [place] [facility] M[place]D. [facility], in [address] [place] [address] [phone] Social History Tobacco Use Types Packs/Day Years [...] by mouth every morning Pharmacy (include Location): [facility] Patient states he dont answer his phone but you can email him documented in this encounter Plan of Treatment Not on filedocumented as of this encounter Visit Diagnoses Not on filedocumented in this encounter Additional Health Concerns Assessment Noted Time PHQ-9 Depression Total Score: 18 02/14/2013 9:53 AM CD T documented as of this encounter Care Teams Shopper Insights Manager Relationship Specialty Start Date End Date Cintia Cobb M.D. PCP - General 02/19/17 02/20/[address] [place] [phone] documented as of this encounter
--- OUTSIDE RECORDS SUMMARY | 2022-08-19 10:29 | XMS_ITS | Encounter Summary ---
:1960 Author Organization [facility] Address [address] [place] [address] Care Team Providers Name Role Phone Cintia Cobb M.D. Primary Care Provider [phone] Reason for Visit Reason Comments Anemia Encounter Details Date Type Department Care Team Description 06/01/2018 Office Visit Department of [facility] Soumya Cobb Iron Deficiency Blood Loss Chronic (Primary Dx); Medicine, Jose Daniel Piper M.D. Chronic Or Unspecified Gastrojejunal Ulc er With Hemorrhage; [place] [address] Radiculo fabiana Lumbar; [facility] Somnolence [address] [address] [place], [place] [phone] [address] (Work) [phone] Social History Tobacco Use Types Packs/Day Years [...] his pain. He will be seeing the nerve specialist next week. 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 Brief [...] Ferritin, S 33 30 - 400 06/02/2018 [facility] mcg/L 2:25 PM CDT [facility] Comment: Biotin has been identified [...] Address City/State/ZIP Code Phon e Number [facility] [address] [place] [address] [facility] (ABNORMAL) Hemoglobin (06/01/2018 7:07 PM CDT) athologist Signature Hemoglobin 7.8 (L) 13.2 - 16.6 06/01/2018 [facility] g/dL 7:17 PM CDT [facility] Specimen Anatomical Collection Method Collection Time Receive d Time (Source) Location / / Volume Laterality Blood (Blood, 06/01/2018 7:07 PM 06/01/20 18 7:09 Venous) CDT PM CDT Cintia Copeland M.D. LAB BLOOD ADD-ON Performing Organization Address City/State/ZIP Code Phon e Number [facility]- [address] [place] [address], [place] [address] [facility] documented in this encounter Visit Diagnoses Diagnosis Anemia Iron Deficiency Blood Loss Chroni c - Primary Chronic Or Unspecified Gastrojejunal Ulc er With Hemorrhage Radiculopathy Lumbar Somnolence documented in this encounter Additional Health Concerns Assessment Noted Time PHQ-9 Depression Total Score: 18 02/14/2013 9:53 AM CD T documented as of this encounter Care Teams Swabber Relationship Specialty Start Date End Date Cintia Cobb M.D. PCP - General 02/19/17 02/20/[address] [phone] documented as of this encounter
--- OUTSIDE RECORDS SUMMARY | 2022-08-19 10:29 | XMS_ITS | Encounter Summary ---
:1960 Author Organization [facility] Address [address] [place] [address] Care Team Providers Name Role Phone Cintia Cobb M.D. Primary Care Provider [phone] Encounter Details Date Type Department Care Team Description 05/31/2018 Orders Only [facility], [facility] First S, M.D. Floor [address] [phone] [phone] (Wo rk) Social History Tobacco Use Types [...] documented as of this encounter Care Teams Shell Maker Lockstitch Relationship Specialty Start Date End Date Cintia Cobb M.D. PCP - General 02/19/17 02/20/[id number] [place] [phone] documented as of this encounter
--- OUTSIDE RECORDS SUMMARY | 2022-08-19 10:30 | XMS_ITS | Encounter Summary ---
:1960 Author Organization [facility] Address [address] [place] [address] Care Team Providers Name Role Phone Cintia Cobb M.D. Primary Care Provider [phone] Encounter Details Date Type Department Care Team [...] as of this encounter Care Teams Filling Layer Up Relationship Specialty Start Date End Date Cintia Cobb M.D. PCP - General 02/19/17 02/20/[address] [phone] documented as of this encounter
--- OUTSIDE RECORDS SUMMARY | 2022-08-19 10:30 | XMS_ITS | Encounter Summary ---
:1960 Author Organization [facility] Address [address] [place] [address] Care Team Providers Name Role Phone Cintia Cobb M.D. Primary Care Provider Encounter Details Date Type Department Care Team Description 04/12/2018 Nurse Triage Department of [facility] Kathrin John R.N. Medicine, [facility], in [address] [place], [place] [address] [address] [place] [address] [phone] Social History Tobacco Use Types Packs/Day Years [...] documented as of this encounter Care Teams Undertaker Assistant Relationship Specialty Start Date End Date Cintia Cobb M.D. PCP - General 02/19/17 02/20/[address] [phone] documented as of this encounter
--- OUTSIDE RECORDS SUMMARY | 2022-08-19 10:30 | XMS_ITS | Encounter Summary ---
:[address] [facility] Address [address] [place] [address] Care Team Providers Name Role Phone Cintia Cobb M.D. Primary Care Provider [phone] Reason for Visit Reason Comments Neuro Consult Neuropathy Outpatient (Routine) - Closed Specialty Diagnoses / Procedures Referred By Contact Refer red To Contact Neurology Diagnoses Neuropathy Peripheral Cintia Cobb [facility] DREW Piper M.D. [address] [address] Referral ID Status Reason Start Date Expiration Date Visits V isits Requested Authorized [id number] Closed Specialty 12/24/2017 2018 1 1 Services Required Encounter Details Date Type Department Care Team Description 01/23/2018 Comprehensive Visit Department of Cintia gAuirre M.D. [address] [phone] Neuropathy Neurology in [place] Garnica M.D. [address] [place] [address] Peripheral ([place], [place]) [address] [address] Social History Tobacco Use Types [...] Ceruloplasmin, 25.0 19.0 - 01/25/2018 [facility] S 31.0 mg/dL 11:30 AM CDT [facility] - [facility] Specimen Anatomical Collection Method Collection Time Receive d Time (Source) Location / / Volume Laterality Blood (Blood, 01/23/2018 10:01/25/2018 8:03 Venous) AM CDT AM CDT German Kwong M.D. LAB BLOOD ADD-ON Performing Organization Address City/[facility]/ZIP Code Phon e Number [facility] [address] [address] [facility] Copper (01/23/2018 10:19 AM CDT) athologist Signature Copper, S 1.09 0.75 - 1.45 01/25/2018 [facility] mcg/mL 1:22 PM CDT [facility] Comment: ----ADDITIONAL INFORMATION---- This test was developed and its performa nce characteristics determined by [facility] in a manner consistent with CLIA requirements. This test has not been cleared or approved by the [place] d and Drug Administration. Specimen Anatomical Collection Method Collection Time Receive d Time (Source) Location / / Volume Laterality Blood (Blood, 01/23/2018 10:01/25/2018 7:04 Venous) AM CDT AM CDT [place] Kwong M.D. LAB BLOOD NON ADD-ON Performing Organization Address City/State/ZIP Code Phon e Number [facility] [address] [address] [facility] documented in this encounter Visit Diagnoses Diagnosis Neuropathy Peripheral - Primary documented in this encounter Additional Health Concerns Assessment Noted Time PHQ-9 Depression Total Score: 18 02/14/2013 9:53 AM CD T documented as of this encounter Care Teams Career Placement Specialist Relationship Specialty Start Date End Date Cintia Cobb M.D. PCP - General 02/19/17 02/20/[address] [address] documented as of this encounter
--- OUTSIDE RECORDS SUMMARY | 2022-08-19 10:30 | XMS_ITS | Encounter Summary ---
:1960 Author Organization [facility] Address [address] [place] [address] Care Team Providers Name Role Phone Cintia Cobb M.D. Primary Care Provider [phone] Reason for Visit Auth/Cert Specialty Diagnoses / Procedures Referred By Contact Refer red To Contact Diagnoses Hemorrhage Gastrointestinal Anemia Procedures NA Referral ID Status Reason Start Date Expiration Date Visits Requ ested Visits Authorized [id number] 1 1 Encounter Details Date Type Department Care Team Description 04/13/2018 Surgery Department of Omar Stone TRODUODENOSCOPY Gastroenterology in [place] M.[address] [phone] Social History Tobacco Use Types Packs/Day Years [...] C.NEricka Primary Care Providers: Cintia Cobb M.D. ([facility]) [address] [place] [phone] Primary Care Provider Primary Care Provider Admission Date: 04/12/2018 Discharge Date: 04/15/2018 PRINCIPAL DIAGNOSIS Gastrointestinal hemorrhage Acute blood loss anemia Headache SECONDARY DIAGNOSES Atrial fibrillation status post pacemaker placement Type 2 diabetes-resolved Status post gastric bypass Hypertension Operative Procedures: Scheduled (Monica), Completed (Comp) or Canceled (Can) Case IDs Date Procedure Surgeon Location Status [id number] 04/13/18 ESOPHAGOGASTRODUODENOSCOPY Omar Stone M.D. [facility] Comp No past medical history on file. Past Surgical History: Procedure Laterality Date ??? BYPASS OF STOMACH N/A 11/19/2014 Gastric bypass ??? CARDIAC PACEMAKER PLACEMENT ??? CHONDRECTOMY OF SPINE N/A 02/19/1989 Discectomy ??? CYSTOSCOPY kidney stone ??? ESOPHAGOGASTRODUODENOSCOPY N/A 04/13/2018 Procedure: ESOPHAGOGASTRODUODENOSCOPY; Surgeon: Omar Stone M.D.; Location: [facility] ??? LAPAROSCOPIC ASSISTED - GASTRIC [...] COURSE 57-year-old male admitted to hospital through [facility] with report of melena and [...] Everywhere. Acute Upper and Lower Gastrointestinal Bleeding (Ivorian)Food Sources of Iron (Ivorian)documented in this encounter Medications at Time of [...] 04/14/2018 11:17 AM CDT Spoke w ordering [facility] COUNSEL OT order in error. No skilled OT [...] CDT SUBJECTIVE The patient is located in [facility], room 3109. I have seen, evaluated, [...] or assistance. BILLING: No charge. Job ID: [id number] documented in this encounter H&P Notes Luis Varghese APRN, C.N.P. - 04/12/2018 5:25 PM CDT CHIEF COMPLAINT Black or bloody stools HISTORY OF PRESENT ILLNESS 57-year-old male admitted to hospital through [facility] re-presented with 4-6 day history [...] amount of weight since that time. 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 Hemoglobin was found to be 2.9. Acute active Acute gastrointestinal bleeding. Most recent hemoglobin from February of this year was 10.6. Today 2.9. Patient did receive 2 units of packed red blood cells in [facility] department. Also given dose of intravenous [...] 7:37 AM CDTAssociated Order(s): UPPER GI ENDOSCOPY [facility] [place] [facility] Patient Name: Ed Jeremy Procedure Date: [...] healthy appearing mucosa. This was traversed. The ucrkz-mt-iltduej limb was characterized by healthy appearing mucosa. The eiexrrjj-vy-bybtsny limb was not examined as it could [...] disposition, GI bleed Onset Date: 04/12/18 Payor: [employer] [place] [facility] / Plan: [facility] BLUE PLUS HMO / Product [...] Procedure: ESOPHAGOGASTRODUODENOSCOPY; Surgeon: Omar Stone M.D.; Location: [facility] ??? LAPAROSCOPIC ASSISTED - GASTRIC [...] History of Present Illness: Pt went to [facility] ER secondary to falling several days in a row. Determined pt had a GI bleed and was transferred to [place] for Surgery Prior Function / Occupational Profile Level of [place]: Independent with ADLs and functional transfers Lives [...] upon discharge. Reportedly not allowed back to [facility] due to his behavior. According to nursing, Ed has been behaving here overnight.) Who was present during the interview?: Patient, Spouse, Other (comment) (Spouse, Maddisona([phone]-Ed scoulded Pipo for giving out this number, call his primary number/confirmed with Ed [phone]) neighbor was also present due to the fact that Pipo does not drive.) Salesperson Art Objects Services Used: No Patient Information Primary Caregiver: Self Support System: Immediate family (Pipo([phone]) Pipo wanted this workers card, although, Ed would not allow this worker to give it to her. Notified Pipo to call and ask for a hospital Video Effects Editor at the main number,) Legal Information (Retired) Legal Decision Maker: Self Caregiver Information Caregiver Name: Pipo Caregiver Relationship: Caregiver (should call [phone] first; this number should only be called [...] Communication: Can write, Talks, Understands speaking, Understands Ivorian Environmental Supports Home Environment: (Ed refused Social [...] any support regarding discharge planning. Pipo requested [facility]'s card, Ed would not allow her [...] as he does not trust social workers. [facility] honored Ed's request to leave the [...] the nurses line. He presented to the [facility] with a hemoglobin of 2.9. [...] most of the history. 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 Per Renetta, the primary nurse, this patient was refusing to go to [place], was refusing to get out of bed,and was being loud and abusive towards her and his spouse. This surgical garment assembly supervisor along with the hospitalist Jelena and [...] wanted to be called he replied Her Wickliffe. Patient was advised that she had call him Sir out of respect and several minutes were spent trying to convince him that sirwas not intended tameka disrespectful and that in no way was the nurse going to refer to him as her Wickliffe. This patient did not appeared to be [...] a follow-up I contacted his Magali Luna ([phone]). Mrs. Luna stated she left because he [...] the room. The patient demanded that the surgical garment assembly supervisor speak with him about the staff members. He stated that nurse is no longer allowed in my room, and I will yudi this hospital if she comes in. The nurse obtained help from the surgical garment assembly supervisor and provider in dealing with the patients oppositional and demanding behaviors. The PCS and FRONT DESK OFFICER had a lengthy discussion with the patient. The patient was assisted down to Radiology, where it took 1 complete hour for him to transfer to the CT scan and back. The patient was rather difficult during that time as well. He was accompanied by the NST. The FRONT DESK OFFICER and nurse spoke with the patients , [...] to c/o severe headacheand blurry vision, bobby FRONT DESK OFFICER notified and seen patient at bedside, see [...] of blood was complete upon arrival from [place]. documented in this encounter Plan of Treatment [...] CBC with Differential (04/21/2018 1:35 PM CDT) [facility] Time Signature Hemoglobin 8.4 (L) 13.2 - 04/21/2018 [facility] 16.6 g/dL 1:44 PM CDT [facility] Hematocrit 26.6 (L) 38.3 - 04/21/2018 [facility] 48.6 % 1:44 PM CDT [facility] Erythrocytes 2.99 (L) 4.35 - 04/21/2018 [facility] 5.65 1:44 PM CDT [facility] x10(12)/L [facility] MCV 89.0 78.2 - 04/21/2018 [facility] 97.9 fL 1:44 PM CDT [facility] RBC Distrib Width 15.4 (H) 11.8 - 04/21/2018 [facility] 14.5 % 1:44 PM CDT [facility] Platelet Count 251 135 - 317 04/21/2018 [facility] x10(9)/L 1:44 PM CDT [facility] Leukocytes 8.8 3.4 - 9.6 04/21/2018 [facility] x10(9)/L 1:44 PM CDT [facility] Neutrophils 5.90 1.56 - 04/21/2018 [facility] 6.45 1:44 PM CDT HEALTH x10(9)/L [facility] LAB Lymphocytes 1.91 0.95 - 04/21/2018 [facility] 3.07 1:44 PM CDT HEALTH x10(9)/L [facility] Monocytes 0.78 0.26 - 04/21/2018 [facility] 0.81 1:44 PM CDT HEALTH x10(9)/L [facility] Eosinophils 0.15 0.03 - 04/21/2018 [facility] 0.48 1:44 PM CDT HEALTH x10(9)/L [facility] Basophils 0.05 0.01 - 04/21/2018 [facility] 0.08 1:44 PM CDT HEALTH x10(9)/L [facility] LAB Specimen Anatomical Collection Method Collection Time Receive d Time (Source) Location / / Volume Laterality Blood (Blood, 04/21/2018 1:35 PM 04/21/20 18 1:37 Venous) CDT PM CDT Luis Varghese APRN, C.N.P. LAB BLOOD ADD-ON Performing Organization Address City/State/ZIP Code Phon e Number [facility] [address] [place] [id number] [place] LAB (ABNORMAL) CBC with Differential, Blood (04/15/2018 6:13 AM CDT) [facility] Method Time Signature Hemoglobin 7.4 (L) 13.2 - 04/15/2018 [facility] 16.6 g/dL 6:28 AM CDT [facility] [place] [facility] Hematocrit 22.8 (L) 38.3 - 04/15/2018 [facility] 48.6 % 6:28 AM CDT [facility] [place] [facility] Erythrocytes 2.65 (L) 4.35 - 04/15/2018 [facility] 5.65 6:28 AM CDT [facility] x10(12)/L [facility] [place] [facility] MCV 86.0 78.2 - 04/15/2018 [facility] 97.9 fL 6:28 AM CDT [facility] [place] [facility] RBC Distrib Width 18.4 (H) 11.8 - 04/15/2018 [facility] 14.5 % 6:28 AM CDT [facility] [place] [facility] Platelet Count 149 135 - 317 04/15/2018 [facility] x10(9)/L 6:28 AM T [facility] [place] [facility] Leukocytes 7.3 3.4 - 9.6 04/15/2018 [facility] x10(9)/L 6:28 AM CDT [facility] [place] [facility] Neutrophils 5.04 1.56 - 04/15/2018 [facility] 6.45 6:28 AM CDT HEALTH x10(9)/L [facility] [place] [facility] Lymphocytes 1.37 0.95 - 04/15/2018 [facility] 3.07 6:28 AM CDT HEALTH x10(9)/L [facility] [place] [facility] Monocytes 0.69 0.26 - 04/15/2018 [facility] 0.81 6:28 AM CDT HEALTH x10(9)/L [facility] [place] [facility] Eosinophils 0.16 0.03 - 04/15/2018 [facility] 0.48 6:28 AM CDT [facility]ALTH x10(9)/L [facility] [place] [facility] Basophils 0.02 0.01 - 04/15/2018 [facility] 0.08 6:28 AM CDT [facility] x10(9)/L [facility] [place] [facility] Specimen Anatomical Collection Method Collection Time Receive d Time (Source) Location / / Volume Laterality Blood (Blood, 04/15/2018 6:13 AM 04/15/20 18 6:23 Venous) CDT AM CDT Luis Varghese APRN, C.N.P. LAB BLOOD ADD-ON Performing Organization Address City/State/ZIP Code Phon e Number [facility] [address] [place] [address] [place] [facility] (ABNORMAL) Hemoglobin (04/14/2018 4:11 PM CDT) P athologist Signature Hemoglobin 7.5 (L) 13.2 - 16.6 04/14/2018 [facility] g/dL 4:33 PM CDT [facility] Specimen Anatomical Collection Method Collection Time Receive d Time (Source) Location / / Volume Laterality Blood (Blood, 04/14/2018 4:11 PM 04/14/20 18 4:30 Venous) CDT PM CDT Luis Varghese APRN, C.N.P. LAB BLOOD ADD-ON Performing Organization Address City/State/ZIP Code Phon e Number [facility] [address] [place] [address] [place] [facility] (ABNORMAL) BMP (Basic Metabolic Panel) (04/14/2018 5:55 AM CDT) athologist Signature Potassium, S 3.8 3.6 - 5.2 04/14/2018 [facility] mmol/L 6:49 AM [facility] Sodium, S 141 135 - 145 04/14/2018 [facility] mmol/L 6:49 AM [facility] Chloride, S 106 98 - 107 04/14/2018 [facility] mmol/L 6:49 AM [facility] Bicarbonate, S 27 22 - 29 04/14/2018 [facility] mmol/L 6:49 AM [facility] Anion Gap 8 7 - 15 04/14/2018 [facility] 6:49 AM [facility] BUN (Blood Urea 34 (H) 8 - 24 04/14/2018 [facility] Nitrogen), S mg/dL 6:49 AM [facility] Creatinine 0.98 0.74 - 04/14/2018 [facility] 1.35 mg/dL 6:49 AM [facility] eGFR-Non 84 >=60 04/14/2018 [facility] Black/ mL/min/BSA 6:49 AM [facility] [place] [facility] Comment: ----ADDITIONAL INFORMATION---- Estimated GFR calculated using the 2009 CKD_EPI creatinine equation. eGFR-Black/ >90 >=60 mL/min/BSA 2017 6:49 AM [facility] [place] [facility] Comment: ----ADDITIONAL INFORMATION---- Estimated GFR calculated using the 2009 CKD_EPI creatinine equation. Calcium, Total, S 8.1 (L) 8.6 - 10.0 mg/dL 04/14/2018 6 :49 AM [facility] [place] [facility] Glucose, S 149 (H) 70 - 140 mg/dL 04/14/2018 6:49 AM [facility] LAB Specimen Anatomical Collection Method Collection Time Receive d Time (Source) Location / / Volume Laterality Blood (Blood, 04/14/2018 5:55 AM 04/14/20 18 6:10 Venous) CDT AM CDT Kelvin Narvaez APRNNEricka LAB BLOOD ADD-ON Performing Organization Address City/State/ZIP Code Phon e Number [facility] [address] [place] [address] [place] [facility] (ABNORMAL) CBC with Differential, Blood (04/14/2018 5:55 AM CDT) [facility] Method Time Signature Hemoglobin 7.0 (L) 13.2 - 04/14/2018 [facility] 16.6 g/dL 6:13 AM [facility] Hematocrit 21.8 (L) 38.3 - 04/14/2018 [facility] 48.6 % 6:13 AM [facility] Erythrocytes 2.48 (L) 4.35 - 04/14/2018 [facility] 5.65 6:13 AM T HEALTH x10(12)/L [facility] [place] [facility] MCV 87.9 78.2 - 04/14/2018 [facility] 97.9 fL 6:13 AM [facility] RBC Distrib Width 19.3 (H) 11.8 - 04/14/2018 [facility] 14.5 % 6:13 AM [facility] Platelet Count 134 (L) 135 - 317 04/14/2018 [facility] x10(9)/L 6:13 AM [facility] Leukocytes 7.3 3.4 - 9.6 04/14/2018 [facility] x10(9)/L 6:13 AM [facility] Neutrophils 5.26 1.56 - 04/14/2018 [facility] 6.45 6:13 AM [facility] [employer] x10(9)/L [facility] [place] [facility] Lymphocytes 1.34 0.95 - 04/14/2018 [facility] 3.07 6:13 AM [facility] [employer] x10(9)/L [facility] [place] [facility] Monocytes 0.63 0.26 - 04/14/2018 [facility] 0.81 6:13 AM CDT HEALTH x10(9)/L [facility] [place] [facility] Eosinophils 0.09 0.03 - 04/14/2018 [facility] 0.48 6:13 AM CDT HEALTH x10(9)/L [facility] [place] [facility] Basophils 0.01 0.01 - 04/14/2018 [facility] 0.08 6:13 AM CDT HEALTH x10(9)/L [facility] [place] [facility] Specimen Anatomical Collection Method Collection Time Receive d Time (Source) Location / / Volume Laterality Blood (Blood, 04/14/2018 5:55 AM 04/14/20 18 6:10 Venous) CDT AM CDT Kelvin Narvaez APRNNPiliPPili LAB BLOOD ADD-ON Performing Organization Address City/State/ZIP Code Phon e Number [facility] [address] [facility] [place] [address] Head Neck Angiogram with [...] of acute infarct. Luis Varghese APRN C.N.P. [facility] PROCEDURES Pathology Services (04/13/2018 7:50 AM CDT) Component Value Ref Test Analysis Performed At [facility] Range Method Time Signature PATHOLOGY Patient Name: NOEMÍ LUNA [facility] SERVICES MR#: [id number] [facility] Submitting Physician: OMAR STONE MD [id number] Specimen #[id number] Performing Lab: ??[facility] ? [address] [place] [id number] Source: Stomach biopsy - R/O - Helicobacter [...] Code Phon e Number SELENE HAMLIN [address] [facility] [place] [address] UPPER GI ENDOSCOPY (04/13/2018 7:37 AM CDT) Specimen (Source) Anatomical Location Collection Method / Collectio n Time Received Time / Laterality Volume Narrative This result has an attachment that is no t available. Procedure Note Omar Stone M.D. - 04/13/2018 7:3 7 AM CDT [facility] [place] [facility] Patient Name: Ed Luna Procedure Date: [...] y appearing mucosa. This was traversed. The pioyq-xc-vrkpqai limb wa s characterized by healthy appearing mucosa. The towazubm-ez-vsuew um limb was not examined as it [...] 4.1 3.6 - 5.2 04/13/2018 [facility] mmol/L 6:19 AM [facility] [place] [facility] Sodium, S 144 135 - 145 04/13/2018 [facility] mmol/L 6:19 AM [facility] Chloride, S 108 (H) 98 - 107 04/13/2018 [facility] mmol/L 6:19 AM [facility] Bicarbonate, S 25 22 - 29 04/13/2018 [facility] mmol/L 6:19 AM [facility] Anion Gap 11 7 - 15 04/13/2018 [facility] 6:19 AM [facility] BUN (Blood Urea 63 (H) 8 - 24 04/13/2018 [facility] Nitrogen), S mg/dL 6:19 AM [facility] Creatinine 1.14 0.74 - 04/13/2018 [facility] 1.35 mg/dL 6:19 AM [facility] eGFR-Non 70 >=60 04/13/2018 [facility] Black/ mL/min/BSA 6:19 AM [facility] LAB Comment: ----ADDITIONAL INFORMATION---- Estimated GFR calculated using the 2009 CKD_EPI creatinine equation. eGFR-Black/ 81 >=60 mL/min/BSA 2017 6:19 AM [facility] Comment: ----ADDITIONAL INFORMATION---- Estimated GFR calculated using the 2009 CKD_EPI creatinine equation. Calcium, Total, S 8.3 (L) 8.6 - 10.0 04/13/2018 6:[address] [facility] mg/dL [facility] Glucose, S 176 (H) 70 - 140 mg/dL 04/13/2018 6:19 AM [facility] Protein, Total, S 4.9 (L) 6.3 - 7.9 g/dL 04/13/2018 6:19 A M [facility] Albumin, S 3.3 (L) 3.5 - 5.0 g/dL 04/13/2018 6:19 AM [facility] Aspartate 12 8 - 48 U/L 04/13/2018 6:19 AM [facility] ([facility] Alkaline Phosphatase, S 41 (L) 45 - 115 U/L 04/13/2018 6: 19 AM [facility] Alanine Aminotransferase 13 7 - 55 U/L 04/13/2018 6:1 9 AM [facility] (ALT), S [facility] Bilirubin, Total, S 0.7 <=1.2 mg/dL 04/13/2018 6:19 AM [facility] Specimen Anatomical Collection Method Collection Time Receive d Time (Source) Location / / Volume Laterality Blood (Blood, 04/13/2018 5:24 AM 04/13/20 18 5:34 Venous) CDT AM CDT Jess Hernandez M.D. LAB BLOOD ADD-ON Performing Organization Address City/State/ZIP Code Phon e Number [facility] [place] [address] [place] [facility] (ABNORMAL) CBC without Differential (04/13/2018 5:23 AM CDT) [facility] Method Time Signature Hemoglobin 7.7 (L) 13.2 - 04/13/2018 [facility] 16.6 g/dL 5:37 AM CDT [facility] Hematocrit 23.3 (L) 38.3 - 04/13/2018 [facility] 48.6 % 5:37 AM CDT [facility] Erythrocytes 2.69 (L) 4.35 - 04/13/2018 [facility] 5.65 5:37 AM CDT [facility] x10(12)/L [facility] MCV 86.6 78.2 - 04/13/2018 [facility] 97.9 fL 5:37 AM CDT [facility] RBC Distrib Width 18.6 (H) 11.8 - 04/13/2018 [facility] 14.5 % 5:37 AM T [facility] Platelet Count 147 135 - 317 04/13/2018 [facility] x10(9)/L 5:37 AM T [facility] Leukocytes 9.4 3.4 - 9.6 04/13/2018 [facility] x10(9)/L 5:37 AM T [facility] Specimen Anatomical Collection Method Collection Time Receive d Time (Source) Location / / Volume Laterality Blood (Blood, 04/13/2018 5:23 AM 04/13/20 18 5:34 Venous) CDT AM CDT Jess Hernandez M.D. LAB BLOOD ADD-ON Performing Organization Address City/State/ZIP Code Phon e Number [facility] [place] [address] [place] [facility] Transfuse Red Blood Cells (04/13/2018 [...] (CL) 13.2 - 16.6 04/13/2018 [facility] g/dL 12:44 AM CDT [facility] [place] [facility] Specimen Anatomical Collection Method Collection Time Receive d Time (Source) Location / / Volume Laterality Blood (Blood, 04/13/2018 12:33 04/13/2018 Venous) AM CDT 12:38 AM CDT Luis Varghese APRN, C.N.P. LAB BLOOD ADD-ON Performing Organization Address City/State/ZIP Code Phon e Number [facility] [address] [facility] [place] [address] [place] [facility] Transfuse Red Blood Cells (04/12/2018 9:35 PM CDT) Luis Varghese APRN, C.N.P. BLOOD TRANSFUSION ORDER DESEAN Transfuse Red Blood Cells : , 1 Units (04/12/2018 9:35 PM CDT) Luis Varghese APRN, C.N.P. BLOOD TRANSFUSION ORDER DESEAN Type and Screen (with reflex Antibody ID) (04/12/2018 5:52 PM CDT) [facility] Method Time Signature ABO Group A 04/12/2018 [facility] 6:15 PM CDT [facility] [place] [facility] Rh Type POS 04/12/2018 [facility] 6:15 PM CDT [facility] [place] [facility] Antibody Screen NEG 04/12/2018 [facility] 6:28 PM CDT [facility] [place] [facility] Type & Screen 04/15/2018 04/12/2018 [facility] Expiration 23:59 6:28 PM CDT [facility] [place] [facility] ELXM Eligible Y 04/12/2018 [facility] 6:28 PM CDT [facility] Specimen Anatomical Collection Method Collection Time Receive d Time (Source) Location / / Volume Laterality Blood (Blood, 04/12/2018 5:52 PM 04/12/20 18 5:56 Venous) CDT PM CDT Omar Stone M.D. LAB BLOOD BANK TEST ORDERABL ES Performing Organization Address City/State/ZIP Code Phon e Number [facility] [place] [address] [place] [facility] (ABNORMAL) Hemoglobin (04/12/2018 4:50 PM CDT) P athologist Signature Hemoglobin 5.3 (CL) 13.2 - 16.6 04/12/2018 [facility] g/dL 5:02 PM CDT [facility] Specimen Anatomical Collection Method Collection Time Receive d Time (Source) Location / / Volume Laterality Blood (Blood, 04/12/2018 4:50 PM 04/12/20 18 4:54 Venous) CDT PM CDT Luis Varghese APRN, C.N.P. LAB BLOOD ADD-ON Performing Organization Address City/State/ZIP Code Phon e Number [facility] [place] [facility] [address] [facility] documented in this encounter Visit Diagnoses [...] documented as of this encounter Care Teams Costume Specialist Relationship Specialty Start Date End Date Cintia Cobb M.D. PCP - General 02/19/17 02/20/[address] [place] [phone] documented as of this encounter
--- OUTSIDE RECORDS SUMMARY | 2022-08-19 10:30 | XMS_ITS | Encounter Summary ---
:1960 Author Organization [facility] Address [address] [place] [address] Care Team Providers Name Role Phone Cintia Cobb M.D. Primary Care Provider [phone] Reason for Visit Reason Comments Black or Bloody Stool since wed black tarry stools Encounter Details Date Type Department Care Team Description 04/12/2018 Emergency [place] Eugene Buncha ge Gastrointestinal (Primary Dx); Emergency Department Reed ALLEN M.D. Anemia; [address] [facility] [address] [address] [facility] [address]; [place], [place] [address] Diabetes Mellitus Type 2 Hyperglycemia ( HCC); [address] [place], [place] Hypoalbuminemia [phone] (Wo rk) Social History Tobacco Use [...] . We will be transferring him to [place] with the intention of having him scoped [...] Dr. Jess Hernandez External Hospital or Facilty [facility] Eugene Bunch III, M.D. 04/12/18 1621 [...] Cells, 2 Units (04/12/2018 11:55 AM CDT) [facility] Method Time Signature Red Blood [id number] 04/13/2018 [facility] Cells Released 5:29 AM CDT [facility] Product Code ^-1 LR Red 04/13/2018 [facility] Blood Cells /500 5:29 AM CDT [facility] Donation [id number] 04/13/2018 [facility] Number 5:29 AM CDT [facility] [place] Barcoded [id number] 04/13/2018 [facility] Product Code 5:29 AM [facility] [place] Unit Status Not Available 04/13/2018 [facility] 5:29 AM [facility] [facility] Unit [id number] 04/13/2018 [facility] Expiration 5:29 AM T [facility] [place] Unit ABO/Rh 6200 04/13/2018 [facility] 5:29 AM T [facility] [place] Unit ABO/Rh A POSITIVE [facility] [place] [facility] Specimen Anatomical Collection Method Collection Time Receive d Time (Source) Location / / Volume Laterality WB EDTA 04/12/2018 11:55 04/12/2018 AM CDT 12:03 PM CDT Eugene Bunch III, M.D. BLOOD BANK PRODUCT ORDE CATARINO Performing Organization Address [facility] Phon e Number [address] [address] [place] [facility] Type and screen (04/12/2018 11:55 AM CDT) [facility] Method Time Signature ABO Group A 04/12/2018 [facility] 12:30 PM CDT [facility] [place] [facility] Rh Type POS 04/12/2018 [facility] 12:31 PM T [facility] Antibody Screen NEG 04/12/2018 [facility] 12:43 PM T [facility] Type & Screen 04/15/2018 04/12/2018 [facility] Expiration 23:59 12:43 PM T [facility] ELXM Eligible N 04/12/2018 [facility] 12:43 PM T [facility] Specimen Anatomical Collection Method Collection Time Receive d Time (Source) Location / / Volume Laterality Blood 04/12/2018 11:55 04/12/2018 AM CDT 12:03 PM CDT Eugene Bunch III, M.D. LAB BLOOD BANK TEST ORD ERAPRETTY Performing Organization Address [facility] Phon e Number [address] [address] [place] [facility] Emergency blood uncrossmatched (04/12/2018 11:55 AM CDT) Patholo gist Method Time Signature Emergency EMBLD 04/12/2018 [facility] Blood Confirmed 12:39 PM CDT [facility] Specimen Anatomical Collection Method Collection Time Receive d Time (Source) Location / / Volume Laterality Blood (Blood, 04/12/2018 11:55 04/12/2018 Venous) AM CDT 11:57 AM CDT Eugene Bunch III, M.D. LAB BLOOD BANK TEST ORD ERABLES Performing Organization Address [facility] Phon e Number [place] [phone] [place] [facility] PT (Prothrombin Time) with INR (04/12/2018 11:23 AM CDT) athologist Signature Prothrombin 9.7 8.8 - 11.9 04/12/2018 [facility] Time, P sec 12:31 PM CDT [facility] INR 1.0 0.9 - 1.2 04/12/2018 [facility] 12:31 PM CDT [facility] Comment: Standard intensity warfarin therapeutic range: 2.0 to 3.0 High intensity warfarin therapeutic rang e: 2.5 to 3.5 Specimen Anatomical Collection Method Collection Time Receive d Time (Source) Location / / Volume Laterality Blood (Blood, 04/12/2018 11:23 04/12/2018 Venous) AM CDT 11:25 AM CDT Eugene Bunch III, M.D. LAB BLOOD ADD-ON Performing Organization Address [facility] Phon e Number [address] [address] [place] [facility] (ABNORMAL) Lactate (04/12/2018 11:23 AM CDT) P athologist Signature Lactate, P 3.1 (H) 0.5 - 2.2 04/12/2018 [facility] mmol/L 11:39 AM CDT [facility] Specimen Anatomical Collection Method Collection Time Receive d Time (Source) Location / / Volume Laterality Blood (Blood, 04/12/2018 11:23 04/12/2018 Venous) AM CDT 11:25 AM CDT Eugene Bunch III, M.D. LAB BLOOD NON ADD-ON Performing Organization Address City/State/ZIP Code Phon e Number [facility] [address] [address] [place] [facility] (ABNORMAL) Comprehensive Metabolic Panel (04/12/2018 11:[address] [facility]) P athologist Signature Potassium, P 3.8 3.6 - 5.2 04/12/2018 [facility] mmol/L 11:45 AM [facility] [place] [facility] Sodium, P 137 135 - 145 04/12/2018 [facility] mmol/L 11:45 AM [facility] Chloride, P 102 98 - 107 04/12/2018 [facility] mmol/L 11:45 AM [facility] Bicarbonate, P 23 22 - 29 04/12/2018 [facility] mmol/L 11:45 AM [facility] Anion Gap, P 12 7 - 15 04/12/2018 [facility] 11:45 AM [facility] [place] [facility] BUN (Blood Urea 88 (H) 8 - 24 04/12/2018 [facility] Nitrogen), P mg/dL 11:45 AM [facility] [place] [facility] Creatinine 1.22 0.74 - 04/12/2018 [facility] 1.35 mg/dL 11:45 AM [facility] [place] [facility] eGFR-Black/Afri 75 >=60 04/12/2018 [facility] can Bahraini mL/min/BSA 11:45 AM [facility] [place] [facility] Comment: ----ADDITIONAL INFORMATION---- Estimated GFR calculated using the 2009 CKD_EPI creatinine equation. eGFR Non-Black/ 64 >=60 mL/min/BSA 04/12/2018 11:45 AM [facility] Bahraini [facility] [place] Comment: ----ADDITIONAL INFORMATION---- Estimated GFR calculated using the 2009 CKD_EPI creatinine equation. Calcium, Total, P 8.1 (L) 8.6 - 10.0 04/12/2018 11:45 AM [facility] mg/dL [facility] [place] [facility] Glucose, P 227 (H) 70 - 140 mg/dL 04/12/2018 11:45 AM [facility] Protein, Total, P 5.1 (L) 6.3 - 7.9 g/dL 04/12/2018 11:45 AM [facility] Albumin, P 2.9 (L) 3.5 - 5.0 g/dL 04/12/2018 11:45 AM [facility] Aspartate 12 8 - 48 U/L 04/12/2018 11:45 AM [facility] IC Aminotransferase (AST), P [facility] Alkaline Phosphatase, P 38 (L) 45 - 115 U/L 04/12/2018 11 :45 AM [facility] Alanine Aminotransferase 15 7 - 55 U/L 04/12/2018 11: 45 AM [facility] (ALT), [facility] Bilirubin, Total, P <0.2 <=1.2 mg/dL 04/12/2018 11:45 A M [facility] Specimen Anatomical Collection Method Collection Time Receive d Time (Source) Location / / Volume Laterality Blood (Blood, 04/12/2018 11:23 04/12/2018 Venous) AM CDT 11:25 AM CDT Eugene Bunch III, M.D. LAB BLOOD ADD-ON Performing Organization Address City/State/[facility] Code Phon e Number [facility] [phone] [place] [phone] [place] [address] LAB (ABNORMAL) CBC with Differential (04/12/2018 11:23 AM CDT) [facility] Method Time Signature Hemoglobin 2.9 (CL) 13.2 - 04/12/2018 [facility] 16.6 g/dL 11:46 AM [facility] Hematocrit 9.2 (L) 38.3 - 04/12/2018 [facility] 48.6 % 11:45 AM [facility] Erythrocytes 0.95 (L) 4.35 - 04/12/2018 [facility] 5.65 11:[address] [facility] HEALTH x10(12)/L [facility] MCV 96.8 78.2 - 04/12/2018 [facility] 97.9 fL 11:45 AM [facility] RBC Distrib Width 15.9 (H) 11.8 - 04/12/2018 [facility] 14.5 % 11:45 AM CDT [facility] Platelet Count 197 135 - 317 04/12/2018 [facility] x10(9)/L 11:45 AM CDT [facility] [place] [facility] Leukocytes 10.8 (H) 3.4 - 9.6 04/12/2018 [facility] x10(9)/L 11:45 AM CDT [facility] [place] [facility] Neutrophils 8.96 (H) 1.56 - 04/12/2018 [facility] 6.45 11:45 AM CDT [facility] x10(9)/L [facility] Lymphocytes 1.13 0.95 - 04/12/2018 [facility] 3.07 11:45 AM CDT HEALTH x10(9)/L [facility] Monocytes 0.68 0.26 - 04/12/2018 [facility] 0.81 11:45 AM CDT HEALTH x10(9)/L [facility] Eosinophils 0.02 (L) 0.03 - 04/12/2018 [facility] 0.48 11:45 AM CDT [facility] x10(9)/[facility] Basophils 0.01 0.01 - 04/12/2018 [facility] 0.08 11:45 AM CDT [facility] x10(9)/L [facility] Specimen Anatomical Collection Method Collection Time Receive d Time (Source) Location / / Volume Laterality Blood (Blood, 04/12/2018 11:23 04/12/2018 Venous) AM CDT 11:25 AM CDT Eugene Bunch III, M.D. LAB BLOOD ADD-ON Performing Organization Address City/State/[facility] Code Phon e Number [facility]- [address] [address] [place] [facility] documented in this encounter Visit Diagnoses [...] documented as of this encounter Care Teams Retort Firer Relationship Specialty Start Date End Date Cintia Cobb M.D. PCP - General 02/19/17 02/20/[address] [place] [phone] documented as of this encounter
--- OUTSIDE RECORDS SUMMARY | 2022-08-19 10:30 | XMS_ITS | Encounter Summary ---
:1960 Author Organization [facility] Address [address] [place] [address] Care Team Providers Name Role Phone Cintia Cobb M.D. Primary Care Provider [phone] Encounter Details Date Type Department Care Team Description 03/23/2018 Clinical Communication Department of [facility] Medicine, Jose Daniel Hernandez [address] [address] [place], [place] [phone] (Work) [phone] Social History Tobacco Use Types Packs/Day Years [...] documented as of this encounter Care Teams Dividend Deposit Entry Clerk Relationship Specialty Start Date End Date Cintia Cobb M.D. PCP - General 02/19/17 02/20/[address] [place] [phone] documented as of this encounter
--- OUTSIDE RECORDS SUMMARY | 2022-08-19 10:30 | XMS_ITS | Encounter Summary ---
:1960 Author Organization [facility] Address [address] [place] [address] Care Team Providers Name Role Phone Cintia Cobb M.D. Primary Care Provider [phone] Reason for Visit Reason Comments Elbow Pain left Encounter Details Date Type Department Care Team Description 02/14/2018 Emergency [facility], Inj ury Elbow Initial Department P.A.-C. Left (Primary Dx) [address] [phone] Social History Tobacco Use Types Packs/Day Years [...] fall Fall: Fall occurred: Standing Impact surface: Dearing Point of impact: Onto L forearm with [...] pt as his surgeon is in the [facility] area. Further evaluation and mgmt per [...] documented as of this encounter Care Teams Stamping Mill Tender Relationship Specialty Start Date End Date Cintia Cobb M.D. PCP - General 02/19/17 02/20/[id number] [place] [phone] documented as of this encounter
--- OUTSIDE RECORDS SUMMARY | 2022-08-19 10:30 | XMS_ITS | Encounter Summary ---
:1960 Author Organization [facility] Address [address] [place] [address] Care Team Providers Name Role Phone Cintia Cobb M.D. Primary Care Provider [phone] Encounter Details Date Type Department Care Team Description 02/25/2018 Infusion Department of Infusion [facility] Copeland Wound Toe Without Damage To Nail Open Subsequent (Primary Dx); Therapy in Jose Daniel Piper M.D. Diabetes Mellitus Type 2 Peripheral Neur opathy (HCC); [address] Diabetes Mellitus Type 2 (HCC) [address] [place] [address] [phone] Social History Tobacco Use Types Packs/Day Years [...] as of this encounter Care Teams Software Controls Engineer Relationship Specialty Start Date End Date Cintia Cobb M.D. PCP - General 02/19/17 02/20/[address] [phone] documented as of this encounter
--- OUTSIDE RECORDS SUMMARY | 2022-08-19 10:30 | XMS_ITS | Encounter Summary ---
:1960 Author Organization [facility] Address [address] [place] [address] Care Team Providers Name Role Phone Cintia Cobb M.D. Primary Care Provider [phone] Reason for Visit Reason Onset Date Comments CT Scan 04/08/2018 Encounter Details Date Type Department Care Team Description 04/08/2018 Clinical Communication [facility] Medicine, Jose Daniel Piper M.D. [address] [address] [place], [place] [phone] (Work) [phone] Social History Tobacco Use Types Packs/Day Years [...] pt calling pts 's phone number at [phone]. No answer, left voice message for pt to contact the clinic. Telephone Encounter - Jena Martell R.N. - 04/08/2018 10:24 AM CDT Scheduling informed RN that the number listed on his chart ([phone]) is an invalid number. RN tried to call pts home phone number of [phone] and is an invalid number. RN attempted to contact pt using his temporary number in his chart ([phone]), no answer, and isan invalid number. Telephone [...] as of this encounter Care Teams Supervisor Alum Plant Relationship Specialty Start Date End Date Cintia Cobb M.D. PCP - General 02/19/17 02/20/[address] [place] [phone] documented as of this encounter
--- OUTSIDE RECORDS SUMMARY | 2022-08-19 10:30 | XMS_ITS | Encounter Summary ---
:1960 Author Organization [facility] Address [address] [place] [address] Care Team Providers Name Role Phone Cintia Cobb M.D. Primary Care Provider [phone] Reason for Referral MRI/CAT/PET Scan (Routine) - Closed Specialty Diagnoses / Procedures Referred By Contact Refer red To Contact Radiology Diagnoses Pain Low Back Unspecified Cintia Cobb [facility] Region Procedures CT Lumbar Spine without IV Contrast ME CT LUMBAR SPINE WO CNTRST HC CT LUMBAR SPINE WO CNTRST ME CT LUMBAR SPINE WO SAMARA Piper M.D. [address] [place] [phone] Referral ID Status Reason Start Date Expiration Date Visits Requ ested Visits Authorized [id number] Closed 04/07/2018 04/07/2019 1 1 utpatient (Routine) - Closed Specialty Diagnoses / Procedures Referred By Contact Refer red To Contact Diagnoses Weakness Leg Left Cintia Cobb Referring S, M.D. Provider [address] [place] [phone] Referral ID Status Reason Start Date Expiration Visits Visits Date Requested Authorized [id number] Closed Patient 04/06/2018 04/06/2019 1 1 Preference Reason for Visit Reason Comments bilateral knee pain Appointment Request (Routine) - Closed Specialty Diagnoses / Procedures Referred By Contact Refer red To Contact Family Medicine Referral ID Status Reason Start Date Expiration Date Visits Requ ested Visits Authorized [id number] Closed 03/31/2018 03/31/2019 1 1 Encounter Details Date Type Department Care Team Description 04/06/2018 Office Visit Department of Family Reed Cobb Leg Left (Primary Dx); Medicine, Jose Daniel Piper M.D. [facility], [address] [address] [place], [place] [phone] (W ork) [phone] Social History Tobacco Use Types Packs/Day Years [...] documented as of this encounter Care Teams Immigration Services Officer Relationship Specialty Start Date End Date Cintia Cobb M.D. PCP - General 02/19/17 02/20/[address] [phone] documented as of this encounter
--- OUTSIDE RECORDS SUMMARY | 2022-08-19 10:30 | XMS_ITS | Encounter Summary ---
:1960 Author Organization [facility] Address [address] [place] [address] Care Team Providers Name Role Phone Cintia Cobb M.D. Primary Care Provider [phone] Reason for Referral Outpatient (Routine) - Closed Specialty Diagnoses / Procedures Referred By Contact Refer red To Contact Diagnoses Hemorrhage Gastrointestinal Luis Varghese, [facility] HAKEEM, C.N.P. [address] [place] [address] Referral ID Status Reason Start Date Expiration Date Visits Requ ested Visits Authorized [id number] Closed 04/15/2018 04/15/2019 1 1 Scheduling Instructions [...] Expiration Date Visits Requ ested Visits Authorized [id number] 1 1 Encounter Details Date Type Department Care Team Description 04/12/[address] - [facility] Jess Shelby M.D. [address] [place] [id number] Hemorrhage Gastrointestinal (Primary Dx) ; 04/15/2018 Encounter Hospital, [facility] Luis Varghese APRN, C.N.P. [address] [facility] [place] [address] Gastric Bypass Status Post [facility], Third Floor [address] [place] [id number] Social History Tobacco Use Types Packs/Day Years [...] Primary Care Providers: Cintia Cobb M.D. (General) [address] [place] [phone] Primary Care Provider Primary Care Provider Admission Date: 04/12/2018 Discharge Date: 04/15/2018 PRINCIPAL DIAGNOSIS Gastrointestinal hemorrhage Acute blood loss anemia Headache SECONDARY DIAGNOSES Atrial fibrillation status post pacemaker placement Type 2 diabetes-resolved Status post gastric bypass Hypertension Operative Procedures: Scheduled (Monica), Completed (Comp) or Canceled (Can) Case IDs Date Procedure Surgeon Location Status [id number] 04/13/18 ESOPHAGOGASTRODUODENOSCOPY Omar Stone M.D. [facility] Comp No past medical history on file. Past Surgical History: Procedure Laterality Date ??? BYPASS OF STOMACH N/A 11/19/2014 Gastric bypass ??? CARDIAC PACEMAKER PLACEMENT ??? CHONDRECTOMY OF SPINE N/A 02/19/1989 Discectomy ??? CYSTOSCOPY kidney stone ??? ESOPHAGOGASTRODUODENOSCOPY N/A 04/13/2018 Procedure: ESOPHAGOGASTRODUODENOSCOPY; Surgeon: Omar Stone M.D.; Location: [facility] ??? LAPAROSCOPIC ASSISTED - GASTRIC [...] Center 06/01/2018 6:30 PM Cintia Cobb M.D. [facility] SEMFei CFERWZ DISCHARGE MEDICATIONS Discharge Medications [...] COURSE 57-year-old male admitted to hospital through [facility] with report of melena and [...] Everywhere. Acute Upper and Lower Gastrointestinal Bleeding (Panamanian)Food Sources of Iron (Panamanian)documented in this encounter Medications at Time of [...] 04/14/2018 11:17 AM CDT Spoke w ordering SHOT COAT TENDER OT order in error. No skilled OT [...] CDT SUBJECTIVE The patient is located in [place] ICU, room 3109. I have seen, evaluated, [...] or assistance. BILLING: No charge. Job ID: [id number] documented in this encounter H&P Notes Luis Varghese APRN, C.NDonna. - 04/12/2018 5:25 PM CDT CHIEF COMPLAINT Black or bloody stools HISTORY OF PRESENT ILLNESS 57-year-old male admitted to hospital through [facility] re-presented with 4-6 day history [...] amount of weight since that time. 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 Hemoglobin was found to be 2.9. Acute active Acute gastrointestinal bleeding. Most recent hemoglobin from February of this year was 10.6. Today 2.9. Patient did receive 2 units of packed red blood cells in [facility]. Also given dose of intravenous [...] CDTAssociated Order(s): UPPER GI ENDOSCOPY [facility] [place] [facility] Patient Name: Noemí Luna Procedure Date: [...] healthy appearing mucosa. This was traversed. The wekyo-hh-arnoiuy limb was characterized by healthy appearing mucosa. The sqbbgpyw-ny-hmojryp limb was not examined as it could [...] disposition, GI bleed Onset Date: 04/12/18 Payor: [facility] / Plan: [facility] [employer] HMO / Product Type: Medicaid HMO / [...] Procedure: ESOPHAGOGASTRODUODENOSCOPY; Surgeon: Omar Stone M.D.; Location: [facility] ??? LAPAROSCOPIC ASSISTED - GASTRIC [...] History of Present Illness: Pt went to [facility] ER secondary to falling several days in a row. Determined pt had a GI bleed and was transferred to [place] for Surgery Prior Function / Occupational Profile Level of [place]: Independent with ADLs and functional transfers Lives [...] upon discharge. Reportedly not allowed back to [facility] due to his behavior. According to nursing, Ed has been behaving here overnight.) Who was present during the interview?: Patient, Spouse, Other (comment) (Spouse, Pipo([phone]-Ed scoulded Pipo for giving out this number, call his primary number/confirmed with Ed [phone]) neighbor was also present due to the fact that Pipo does not drive.) [employer] Used: No Patient Information Primary Caregiver: Self Support System: Immediate family (, Pipo([phone]) Pipo wanted this workers card, although, Ed would not allow this worker to give it to her. Notified Pipo to call and ask for a hospital Chinese Herbalist at the main number,) Legal Information (Retired) Legal Decision Maker: Self Caregiver Information Caregiver Name: Pipo Caregiver Relationship: Caregiver (should call [phone] first; this number should only be called [...] Communication: Can write, Talks, Understands speaking, Understands Panamanian Environmental Supports Home Environment: (Ed refused Social [...] the nurses line. He presented to the [facility] with a hemoglobin of 2.9. [...] of the history. 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 Provider notified. jL Will R.N. - 04/13/2018 8:00 PM CDT On today's date at approximately 2000 hr this nursing labor supervisor was called by Mr. Noemí Luna's nurse regarding his disruptive behavior. Per Renetta, the primary nurse, this patient was refusing to go to CT, was refusing to get out of bed,and was being loud and abusive towards her and his spouse. This labor supervisor along with the hospitalist Jelena and [...] wanted to be called he replied Her [place]. Patient was advised that she had call him Sir out of respect and several minutes were spent trying to convince him that sirwas not intended tameka disrespectful and that in no way was the nurse going to refer to him as her [place]. This patient did not appeared to be [...] a follow-up I contacted his Magali Luna ([phone]). Mrs. Luna stated she left because he [...] the room. The patient demanded that the labor supervisor speak with him about the staff members. He stated that nurse is no longer allowed in my room, and I will yudi this hospital if she comes in. The nurse obtained help from the labor supervisor and provider in dealing with the patients oppositional and demanding behaviors. The PCS and HEATING AND REFRIGERATION INSPECTOR had a lengthy discussion with the patient. The patient was assisted down to Radiology, where it took 1 complete hour for him to transfer to the CT scan and back. The patient was rather difficult during that time as well. He was accompanied by the NST. The HEATING AND REFRIGERATION INSPECTOR and nurse spoke with the patients , [...] to c/o severe headacheand blurry vision, bobby HEATING AND REFRIGERATION INSPECTOR notified and seen patient at bedside, see [...] of blood was complete upon arrival from [facility]. documented in this encounter Plan of Treatment [...] CBC with Differential (04/21/2018 1:35 PM CDT) [facility] Method Time Signature Hemoglobin 8.4 (L) 13.2 - 04/21/2018 [facility] 16.6 g/dL 1:44 PM CDT [facility] Hematocrit 26.6 (L) 38.3 - 04/21/2018 [facility] 48.6 % 1:44 PM CDT [facility] Erythrocytes 2.99 (L) 4.35 - 04/21/2018 [facility] 5.65 1:44 PM CDT [facility] x10(12)/L [facility] MCV 89.0 78.2 - 04/21/2018 [facility] 97.9 fL 1:44 PM CDT [facility] RBC Distrib Width 15.4 (H) 11.8 - 04/21/2018 [facility] 14.5 % 1:44 PM CDT [facility] Platelet Count 251 135 - 317 04/21/2018 [facility] x10(9)/L 1:44 PM CDT [facility] Leukocytes 8.8 3.4 - 9.6 04/21/2018 [facility] x10(9)/L 1:44 PM CDT [facility] Neutrophils 5.90 1.56 - 04/21/2018 [facility] 6.45 1:44 PM CDT [facility] x10(9)/L [facility] Lymphocytes 1.91 0.95 - 04/21/2018 [facility] 3.07 1:44 PM CDT [facility] x10(9)/L [facility] Monocytes 0.78 0.26 - 04/21/2018 [facility] 0.81 1:44 PM CDT [facility] x10(9)/L [facility] Eosinophils 0.15 0.03 - 04/21/2018 [facility] 0.48 1:44 PM CDT [facility] x10(9)/L [facility] Basophils 0.05 0.01 - 04/21/2018 [facility] 0.08 1:44 PM CDT [facility] x10(9)/L [facility] Specimen Anatomical Collection Method Collection Time Receive d Time (Source) Location / / Volume Laterality Blood (Blood, 04/21/2018 1:35 PM 04/21/20 18 1:37 Venous) CDT PM CDT Luis Varghese APRN, C.N.P. LAB BLOOD ADD-ON Performing Organization Address City/State/ZIP Code Phon e Number [facility] [address] [place] [address] [place] [facility] (ABNORMAL) CBC with Differential, Blood (04/15/2018 6:13 AM CDT) [facility] gist Method Time Signature Hemoglobin 7.4 (L) 13.2 - 04/15/2018 [facility] 16.6 g/dL 6:28 AM CDT [facility] [place] Hematocrit 22.8 (L) 38.3 - 04/15/2018 [facility] 48.6 % 6:28 AM T [facility] Erythrocytes 2.65 (L) 4.35 - 04/15/2018 [facility] 5.65 6:28 AM CDT [facility] x10(12)/L [facility] [place] [facility] MCV 86.0 78.2 - 04/15/2018 [facility] 97.9 fL 6:28 AM T [facility] RBC Distrib Width 18.4 (H) 11.8 - 04/15/2018 [facility] 14.5 % 6:28 AM T [facility] Platelet Count 149 135 - 317 04/15/2018 [facility] x10(9)/L 6:28 AM [facility] [place] [facility] Leukocytes 7.3 3.4 - 9.6 04/15/2018 [facility] x10(9)/L 6:28 AM T [facility] [place] [facility] Neutrophils 5.04 1.56 - 04/15/2018 [facility] 6.45 6:28 AM CDT [facility]ALTH x10(9)/L [facility] [place] [facility] Lymphocytes 1.37 0.95 - 04/15/2018 [facility] 3.07 6:28 AM CDT [facility] x10(9)/L [facility] [place] [facility] Monocytes 0.69 0.26 - 04/15/2018 [facility] 0.81 6:28 AM CDT [facility] x10(9)/L [facility] [place] [facility] Eosinophils 0.16 0.03 - 04/15/2018 [facility] 0.48 6:28 AM CDT [facility] x10(9)/L [facility] [place] [facility] Basophils 0.02 0.01 - 04/15/2018 [facility] 0.08 6:28 AM CDT [facility] x10(9)/L [facility] [place] [facility] Specimen Anatomical Collection Method Collection Time Receive d Time (Source) Location / / Volume Laterality Blood (Blood, 04/15/2018 6:13 AM 04/15/20 18 6:23 Venous) CDT AM CDT Lius Varghese APRN, C.N.P. LAB BLOOD ADD-ON Performing Organization Address City/State/ZIP Code Phon e Number [facility] [address] [place] [address] [facility] [facility] (ABNORMAL) Hemoglobin (04/14/2018 4:11 PM CDT) athologist Signature Hemoglobin 7.5 (L) 13.2 - 16.6 04/14/2018 [facility] g/dL 4:33 PM CDT [facility] [place] [facility] Specimen Anatomical Collection Method Collection Time Receive d Time (Source) Location / / Volume Laterality Blood (Blood, 04/14/2018 4:11 PM 04/14/20 18 4:30 Venous) CDT PM CDT Luis Varghese APRN, C.N.P. LAB BLOOD ADD-ON Performing Organization Address City/State/ZIP Code Phon e Number [facility] [address] [facility] [place] [address] [place] [facility] (ABNORMAL) BMP (Basic Metabolic Panel) (04/14/2018 5:55 AM CDT) athologist Signature Potassium, S 3.8 3.6 - 5.2 04/14/2018 [facility] mmol/L 6:49 AM CDT [facility] [place] [facility] Sodium, S 141 135 - 145 04/14/2018 [facility] mmol/L 6:49 AM CDT [facility] [place] [facility] Chloride, S 106 98 - 107 04/14/2018 [facility] mmol/L 6:49 AM CDT [facility] Bicarbonate, S 27 22 - 29 04/14/2018 [facility] mmol/L 6:49 AM CDT [facility] [place] [facility] Anion Gap 8 7 - 15 04/14/2018 [facility] 6:49 AM [facility] BUN (Blood Urea 34 (H) 8 - 24 04/14/2018 [facility] Nitrogen), S mg/dL 6:49 AM [facility] Creatinine 0.98 0.74 - 04/14/2018 [facility] 1.35 mg/dL 6:49 AM [facility] eGFR-Non 84 >=60 04/14/2018 [facility] Black/ mL/min/BSA 6:49 AM [facility] [place] [facility] Comment: ----ADDITIONAL INFORMATION---- Estimated GFR calculated using the 2009 CKD_EPI creatinine equation. eGFR-Black/ >90 >=60 mL/min/BSA 2017 6:[address] [facility] Comment: ----ADDITIONAL INFORMATION---- Estimated GFR calculated using the 2009 CKD_EPI creatinine equation. Calcium, Total, S 8.1 (L) 8.6 - 10.0 mg/dL 04/14/2018 6 :49 AM [facility] Glucose, S 149 (H) 70 - 140 mg/dL 04/14/2018 6:49 AM [facility] Specimen Anatomical Collection Method Collection Time Receive d Time (Source) Location / / Volume Laterality Blood (Blood, 04/14/2018 5:55 AM 04/14/20 18 6:10 Venous) CDT AM CDT Luis Varghese APRN, C.N.P. LAB BLOOD ADD-ON Performing Organization Address City/State/ZIP Code Phon e Number [facility] [address] [place] [address] [place] [facility] (ABNORMAL) CBC with Differential, Blood (04/14/2018 5:55 AM CDT) [facility] Method Time Signature Hemoglobin 7.0 (L) 13.2 - 04/14/2018 [facility] 16.6 g/dL 6:13 AM [facility] Hematocrit 21.8 (L) 38.3 - 04/14/2018 [facility] 48.6 % 6:13 AM [facility] Erythrocytes 2.48 (L) 4.35 - 04/14/2018 [facility] 5.65 6:13 AM CDT HEALTH x10(12)/L SYSTEM- [facility] [place] [facility] MCV 87.9 78.2 - 04/14/2018 [facility] 97.9 fL 6:13 AM T [facility] RBC Distrib Width 19.3 (H) 11.8 - 04/14/2018 [facility] 14.5 % 6:13 AM T [facility] Platelet Count 134 (L) 135 - 317 04/14/2018 [facility] x10(9)/L 6:13 AM CDT [facility] Leukocytes 7.3 3.4 - 9.6 04/14/2018 [facility] x10(9)/L 6:13 AM T [facility] Neutrophils 5.26 1.56 - 04/14/2018 [facility] 6.45 6:13 AM CDT HEALTH x10(9)/L [facility] [place] [facility] Lymphocytes 1.34 0.95 - 04/14/2018 [facility] 3.07 6:13 AM CDT [facility] x10(9)/L [facility] [place] [facility] Monocytes 0.63 0.26 - 04/14/2018 [facility] 0.81 6:13 AM CDT HEALTH x10(9)/L SYSTEM [facility] [place] [facility] Eosinophils 0.09 0.03 - 04/14/2018 [facility] 0.48 6:13 AM CDT [facility]ALTH x10(9)/L [facility] [place] [facility] Basophils 0.01 0.01 - 04/14/2018 [facility] 0.08 6:13 AM CDT [facility] x10(9)/L [facility] Specimen Anatomical Collection Method Collection Time Receive d Time (Source) Location / / Volume Laterality Blood (Blood, 04/14/2018 5:55 AM 04/14/20 18 6:10 Venous) CDT AM CDT Luis Varghese APRN, C.N.P. LAB BLOOD ADD-ON Performing Organization Address City/State/ZIP Code Phon e Number [facility] [address] [place] [address] Head Neck Angiogram with [...] Component Value Ref Test Analysis Performed At [facility] gist Range Method Time Signature PATHOLOGY Patient Name: NOEMÍ LUNA [facility] MR#: [id number] [facility] Submitting Physician: OMAR STONE MD [id number] Specimen #[id number] Performing Lab: ??[facility] ? [address] [place] [id number] Source: Stomach biopsy - R/O - Helicobacter [...] Organization Address City/State/ZIP Code Phon e Number [address] [address] UPPER GI ENDOSCOPY (04/13/2018 7:37 AM CDT) Specimen (Source) Anatomical Location Collection Method / Collectio n Time Received Time / Laterality Volume Narrative This result has an attachment that is no t available. Procedure Note Omar Stone M.D. - 04/13/2018 7:3 7 AM CDT [facility] [place] [facility] Patient Name: Noemí Luna Procedure Date: [...] y appearing mucosa. This was traversed. The fqiqj-ey-hcmgxpb limb wa s characterized by healthy appearing mucosa. The qgmeduqr-jv-kqlpn um limb was not examined as it [...] S 4.1 3.6 - 5.2 04/13/2018 [facility] mmol/L 6:19 AM [facility] [employer] [facility] Sodium, S 144 135 - 145 04/13/2018 [facility] mmol/L 6:19 AM [facility] [employer] [facility] Chloride, S 108 (H) 98 - 107 04/13/2018 [facility] mmol/L 6:19 AM [facility] Bicarbonate, S 25 22 - 29 04/13/2018 [facility] mmol/L 6:19 AM [facility] Anion Gap 11 7 - 15 04/13/2018 [facility] 6:19 AM [facility] [employer] [facility] BUN (Blood Urea 63 (H) 8 - 24 04/13/2018 [facility] Nitrogen), S mg/dL 6:19 AM [facility] [employer] [facility] Creatinine 1.14 0.74 - 04/13/2018 [facility] 1.35 mg/dL 6:19 AM [facility] eGFR-Non 70 >=60 04/13/2018 [facility] Black/ mL/min/BSA 6:19 AM [facility] [employer] [facility] Comment: ----ADDITIONAL INFORMATION---- Estimated GFR calculated using the 2009 CKD_EPI creatinine equation. eGFR-Black/ 81 >=60 mL/min/BSA 2017 6:19 AM [facility] Comment: ----ADDITIONAL INFORMATION---- Estimated GFR calculated using the 2009 CKD_EPI creatinine equation. Calcium, Total, S 8.3 (L) 8.6 - 10.0 04/13/2018 6:19 AM [facility] mg/dL [facility] Glucose, S 176 (H) 70 - 140 mg/dL 04/13/2018 6:19 AM [facility] [employer] [facility] Protein, Total, S 4.9 (L) 6.3 - 7.9 g/dL 04/13/2018 6:[address] [facility] Albumin, S 3.3 (L) 3.5 - 5.0 g/dL 04/13/2018 6:[address] [facility] Aspartate 12 8 - 48 U/L 04/13/2018 6:19 AM [facility] ([facility] S [facility] Alkaline Phosphatase, S 41 (L) 45 - 115 U/L 04/13/2018 6: [address] [facility] Alanine Aminotransferase 13 7 - 55 U/L 04/13/2018 6:1 9 AM [facility] (ALT), S [facility] Bilirubin, Total, S 0.7 <=1.2 mg/dL 04/13/2018 6:[address] [facility] Specimen Anatomical Collection Method Collection Time Receive d Time (Source) Location / / Volume Laterality Blood (Blood, 04/13/2018 5:24 AM 04/13/20 18 5:34 Venous) CDT AM CDT Jess Hernandez M.D. LAB BLOOD ADD-ON Performing Organization Address City/State/ZIP Code Phon e Number [address] [place] [address] [place] [facility] (ABNORMAL) CBC without Differential (04/13/2018 5:23 AM CDT) [facility] Method Time Signature Hemoglobin 7.7 (L) 13.2 - 04/13/2018 [facility] 16.6 g/dL 5:37 AM [facility] Hematocrit 23.3 (L) 38.3 - 04/13/2018 [facility] 48.6 % 5:37 AM [facility] Erythrocytes 2.69 (L) 4.35 - 04/13/2018 [facility] 5.65 5:37 AM [facility] x10(12)/L [facility] MCV 86.6 78.2 - 04/13/2018 [facility] 97.9 fL 5:37 AM [facility] RBC Distrib Width 18.6 (H) 11.8 - 04/13/2018 [facility] 14.5 % 5:37 AM CDT [facility] Platelet Count 147 135 - 317 04/13/2018 [facility] x10(9)/L 5:37 AM CDT [facility] [place] [facility] Leukocytes 9.4 3.4 - 9.6 04/13/2018 [facility] x10(9)/L 5:37 AM CDT [facility] [place] [facility] Specimen Anatomical Collection Method Collection Time Receive d Time (Source) Location / / Volume Laterality Blood (Blood, 04/13/2018 5:23 AM 04/13/20 18 5:34 Venous) CDT AM CDT Jess Hernandez M.D. LAB BLOOD ADD-ON Performing Organization Address City/State/ZIP Code Phon e Number [facility] [address] [facility] [place] [address] [facility] [facility] Transfuse Red Blood Cells (04/13/2018 [...] 5.6 (CL) 13.2 - 16.6 04/13/2018 [facility] g/dL 12:44 AM CDT [facility] [place] [facility] Specimen Anatomical Collection Method Collection Time Receive d Time (Source) Location / / Volume Laterality Blood (Blood, 04/13/2018 12:33 04/13/2018 Venous) AM CDT 12:38 AM CDT Luis Varghese APRN, C.N.P. LAB BLOOD ADD-ON Performing Organization Address City/State/ZIP Code Phon e Number [facility] [address] [place] [address] [place] [facility] Transfuse Red Blood Cells (04/12/2018 9:35 PM CDT) Luis Varghese APRN, C.N.P. BLOOD TRANSFUSION ORDER DESEAN Transfuse Red Blood Cells : , 1 Units (04/12/2018 9:35 PM CDT) Luis Varghese APRN, C.N.P. BLOOD TRANSFUSION ORDER DESEAN Type and Screen (with reflex Antibody ID) (04/12/2018 5:52 PM CDT) Patholo gist Method Time Signature ABO Group A 04/12/2018 [facility] 6:15 PM CDT [facility] Rh Type POS 04/12/2018 [facility] 6:15 PM CDT [facility] Antibody Screen NEG 04/12/2018 [facility] 6:28 PM CDT [facility] [employer] [facility] Type & Screen 04/15/2018 04/12/2018 [facility] Expiration 23:59 6:28 PM CDT [facility] [place] [facility] ELXM Eligible Y 04/12/2018 [facility] 6:28 PM CDT [facility] [facility] Specimen Anatomical Collection Method Collection Time Receive d Time (Source) Location / / Volume Laterality Blood (Blood, 04/12/2018 5:52 PM 04/12/20 18 5:56 Venous) CDT PM CDT Omar Stone M.D. LAB BLOOD BANK TEST ORDERABL ES Performing Organization Address City/State/ZIP Code Phon e Number [facility] [address] [facility] [place] [address] [facility] [facility] (ABNORMAL) Hemoglobin (04/12/2018 4:50 PM CDT) P athologist Signature Hemoglobin 5.3 (CL) 13.2 - 16.6 04/12/2018 [facility] g/dL 5:02 PM CDT [facility] Specimen Anatomical Collection Method Collection Time Receive d Time (Source) Location / / Volume Laterality Blood (Blood, 04/12/2018 4:50 PM 04/12/20 18 4:54 Venous) CDT PM CDT Meme Narvaez APRNP. LAB BLOOD ADD-ON Performing Organization Address City/State/ZIP Code Phon e Number [facility] [address] [place] [address] LAB documented in this encounter Visit Diagnoses [...] 2100 2100 (Not Given - Provider: Mandy aTo R.N. - Reason: Patient/family refused) pantoprazole DR tablet 40 mg (PROTONIX) 1554 (Given - Provider: Anika Cunningham RPiliN.) 0733 (Given - Provider: Surendra rivas R.NPili)[id number] (Given - Provider: Surendra Patino R.N.) 0616 (Given - Provider: Diamond Zuniga R.N.)1642 (Given - Provider: Surendra Patnio R.N.) 40 mg, oral, 2 times daily [...] solution - ADS Ov erride Pull (COMPLETED) 6837 (Given - Provider: Myriam Garcia(R)(CT), RLainey(R)) Starting on Thu04/13/18 at 1944, For 1 dose, Created by xuan delatorre documented in this encounter Additional Health Concerns Assessment Noted Time PHQ-9 Depression Total Score: 18 02/14/2013 9:53 AM CD T documented as of this encounter Care Teams Bindery Leadperson Relationship Specialty Start Date End Date Cintia Cobb M.D. PCP - General 02/19/17 02/20/[address] [place] [phone] documented as of this encounter
--- OUTSIDE RECORDS SUMMARY | 2022-08-19 10:30 | XMS_ITS | Encounter Summary ---
:1960 Author Organization [facility] Address [address] [place] [address] Care Team Providers Name Role Phone Cintia Cobb M.D. Primary Care Provider [phone] Encounter Details Date Type Department Care Team Description 02/21/2018 Documentation Department of Infusion Gus Campos R.N. Therapy in [address] [phone] [place] [address] Social History Tobacco Use Types [...] Ed called today and spoke with our [facility], stating he is not able to come in today for a recheck but would like to come in this week. The BUSINESS TEACHER stated he could come in and see [...] documented as of this encounter Care Teams Parish Nurse Relationship Specialty Start Date End Date Cintia Cobb M.D. PCP - General 02/19/17 02/20/[address] [phone] documented as of this encounter
--- OUTSIDE RECORDS SUMMARY | 2022-08-19 10:30 | XMS_ITS | Encounter Summary ---
:1960 Author Organization [facility] Address [address] [place] [address] Care Team Providers Name Role Phone Cintia Cobb M.D. Primary Care Provider [phone] Reason for Visit Reason Onset Date Comments RX PRIOR AUTHORIZATION 03/11/2018 DENIAL OF LYRICA Encounter Details Date Type Department Care Team Description 03/11/2018 Clinical [facility] Pari Song RX PRIOR Communication [facility] Cintia Copeland AUTHORIZATION [address] Feliz M.D. (DENIAL OF LYRICA ) [place] [id number] [place] [phone] [facility] [phone] [place] [address] Social History Tobacco Use Types [...] documented as of this encounter Care Teams Accounts Payable Professional Relationship Specialty Start Date End Date Cintia Cobb M.D. PCP - General 02/19/17 02/20/[address] [phone] documented as of this encounter
--- OUTSIDE RECORDS SUMMARY | 2022-08-19 10:30 | XMS_ITS | Encounter Summary ---
:1960 Author Organization [facility] Address [address] [place] [address] Care Team Providers Name Role Phone Cintia Cobb M.D. Primary Care Provider Reason for Visit Reason Comments Follow-up Outpatient (Routine) - Closed Specialty Diagnoses / Procedures Referred By Contact Refer red To Contact Family Medicine Cintia Cobb DREW Piper M.D. [address] [place] [address] [place] [id number] Referral ID Status Reason Start Date Expiration Date Visits Requ ested Visits Authorized [id number] Closed 12/22/2017 06/20/2018 1 1 Encounter Details Date Type Department Care Team Description 03/02/2018 Office Visit Department of [facility] Terri Cobb Mellitus Type 2 Peripheral Neuropathy (HCC) (Primary Dx); Merlyn Cabello M.D. Anemia Iron Deficiency; [facility], in [address] [place] [address] Hyperten mikey Essential Primary; [facility] Gastric Bypass Status Post; [facility] ID Pacemaker Cardiac Status Pos t; [address] [place] [phone] Diabetes Mellitus Type 2 (HCC) MERLYN KESSLER [place] [phone] (Work) [phone] Social History Tobacco Use Types Packs/Day Years [...] Ferritin, S 44 30 - 400 03/03/2018 [facility] mcg/L 1:22 PM CDT [facility]- [facility] [...] Organization Address City/State/ZIP Code Phon e Number [facility] [address] [place] [address] [facility] (ABNORMAL) Hemoglobin (03/02/2018 7:37 PM CDT) athologist Signature Hemoglobin 10.6 (L) 13.2 - 16.6 03/02/2018 [facility] g/dL 8:[address] [facility] Specimen Anatomical Collection Method Collection Time Receive d Time (Source) Location / / Volume Laterality Blood (Blood, 03/02/2018 7:37 PM 03/02/20 18 7:44 Venous) CDT PM CDT Cintia Copeland M.D. LAB BLOOD ADD-ON Performing Organization Address City/State/ZIP Code Phon e Number [facility] [address] [place] [address] [place] [address] [facility] Lipid Panel (03/02/2018 7:37 PM CDT) athologist Signature Cholesterol, 139 mg/dL 03/02/2018 [facility] Total 8:[address] [facility] Comment: ----REFERENCE VALUE---- Desirable: < 200 Borderline high: 200 - 239 High: > or = 240 Triglycerides 40 mg/dL 03/02/2018 8:26 PM CDT [facility] Comment: ----REFERENCE VALUE---- Normal: <150 Borderline high: 150-199 High: 200-499 Very high: > or =500 Cholesterol, HDL, S 56 >=40 mg/dL 03/02/2018 8:26 PM CDT [facility] Calculated LDL 75 mg/dL 03/02/2018 8:26 PM CDT [facility] Comment: ----REFERENCE VALUE---- Desirable: <100 Above Desirable: 100-129 Borderline high: 130-159 High: 160-189 Very high: > or =190 Cholesterol, Non-HDL, 83 mg/dL 03/02/2018 8:26 PM CDT [facility] Comment: ----REFERENCE VALUE---- Desirable: <130 Above Desirable: 130-159 Borderline high: 160-189 High: 190-219 Very high: > or =220 Specimen Anatomical Collection Method Collection Time Receive d Time (Source) Location / / Volume Laterality Blood (Blood, 03/02/2018 7:37 PM 03/02/20 18 7:44 Venous) CDT PM CDT Cintia Copeland M.D. LAB BLOOD ADD-ON Performing Organization Address City/[facility]/ZIP Code Phon e Number [address] [address] [facility] Hemoglobin A1c (03/02/2018 7:37 PM CDT) P athologist Signature Hemoglobin A1c, 5.6 4.2 - 5.6 03/02/2018 [facility] B % 8:[address] [facility] Specimen Anatomical Collection Method Collection Time Receive d Time (Source) Location / / Volume Laterality Blood (Blood, 03/02/2018 7:37 PM 03/02/20 18 7:44 Venous) CDT PM CDT Cintia Copeland M.D. LAB BLOOD ADD-ON Performing Organization Address City/[facility]/ZIP Code Phon e Number [address] [address] [facility] documented in this encounter Visit Diagnoses [...] as of this encounter Care Teams Director Product Management Relationship Specialty Start Date End Date Cintia Cobb M.D. PCP - General 02/19/17 02/20/[address] [place] [phone] documented as of this encounter
--- OUTSIDE RECORDS SUMMARY | 2022-08-19 10:30 | XMS_ITS | Encounter Summary ---
:1960 Author Organization [facility] Address [address] [place] [address] Care Team Providers Name Role Phone Cintia Cobb M.D. Primary Care Provider [phone] Reason for Visit Reason Comments Back Pain C/o lower back pain that sta rted 03/18/18. Located lower left back, radiating to the knee. Encounter Details Date Type Department Care Team Description 03/24/2018 Emergency [facility], Lavern Lindsay , Pain Low Back (Primary Department M.D. Dx) [phone] [place] [phone] [place], [place] [phone] (Wo rk) Social History Tobacco Use [...] cannot be sent through Care Everywhere.Back Exercises Qbsh-lt-Iscw (Zimbabwean)Acute Pain Adult (Zimbabwean)documented in this encounter Medications at Time of [...] History provided by: Patient and significant other parts interpreter used: No REVIEW OF SYSTEMS All other [...] as of this encounter Care Teams Electrical Contractor Relationship Specialty Start Date End Date Cintia Cobb M.D. PCP - General 02/19/17 02/20/[address] [phone] documented as of this encounter
--- OUTSIDE RECORDS SUMMARY | 2022-08-19 10:31 | XMS_ITS | Encounter Summary ---
:1960 Author Organization [facility] Address [address] [place] [address] Care Team Providers Name Role Phone Cintia Cobb M.D. Primary Care Provider [phone] Reason for Visit Reason Comments Communication Encounter Details Date Type Department Care Team Description 09/01/2017 Clinical Communication Department of [facility] Medicine, Cintia Jean Baptiste, judith Piper M.D. [address] [phone] Social History Tobacco Use Types Packs/Day Years [...] as of this encounter Care Teams Wire Wrapping Machine Operator Relationship Specialty Start Date End Date Cintia Cobb M.D. PCP - General 02/19/17 02/20/[address] [place] [phone] documented as of this encounter
--- OUTSIDE RECORDS SUMMARY | 2022-08-19 10:31 | XMS_ITS | Encounter Summary ---
:1960 Author Organization [facility] Address [address] [place] [address] Care Team Providers Name Role Phone Cintia Cobb M.D. Primary Care Provider [phone] Encounter Details Date Type Department Care Team Description 02/05/2017 Confidential HX RST NO MAPPING Jennifer Shaffer M.D. [address] [place], [place] [phone] (Wo rk) Social History Tobacco Use Types Packs/Day Years Used Date Smoking Tobacco: Never Sex Assigned at Date Recorded Not on file documented as of this encounter Progress Notes Jennifer Shaffer M.D. - 02/05/2017 10:08 AM CDT DEMOGRAPHIC INFORMATION Clinic Number: [id number] Patient Name: Laz Luna Age: 56 Y Birthdate: 1960 Sex: M [address] [facility] City: [place] [address] CONFIDENTIAL NOTE Service Date/Time: 05-Feb-2017 10:08 Provider: Jennifer Shaffer MD Pager: [phone] Service: CV Type/Desc: MIS Status: Fnl Revision #: 1 CHIEF COMPLAINT/PURPOSE OF VISIT Note created for correspondence purposes only on behalf of Mr. Zane Pineda. Original: [email or web address] Electronically Signed: 04-Mar-2017 10:34 by Shama Shaffer MD Clinical Notes - [id number] Id: [id number] Status: Fnl documented in this encounter Plan of Treatment Not on filedocumented as of this encounter Visit Diagnoses Not on filedocumented in this encounter Additional Health Concerns Assessment Noted Time PHQ-9 Depression Total Score: 18 02/14/2013 9:53 AM CD T documented as of this encounter Care Teams Maintenance Inspector Relationship Specialty Start Date End Date Cintia Cobb M.D. PCP - General 02/19/17 02/20/[address] [place] [phone] documented as of this encounter
--- OUTSIDE RECORDS SUMMARY | 2022-08-19 10:31 | XMS_ITS | Encounter Summary ---
:1960 Author Organization [facility] Address [address] [place] [address] Care Team Providers Name Role Phone Kevin Bullock M.D. Primary Care Provider [phone] Encounter Details Date Type Department Care Team Description 06/02/2017 Hospital Encounter HX [facility] [place] Kevin Aguirre M.D. [address] [place] [phone] (Wo rk) Social History Tobacco Use Types [...] Ordered: OV Est Pt Level 4 - 20122 - 25 min Protein Electrophoresis*-[place] [address] 2. Anemia Hemoglobin has improved. Patient is not consistently taking the iron but this is likely having someaffect. Ordered: OV Est Pt Level 4 - 13442 - 25 min 3. Pacemaker Cardiac S/P Pacemaker site is well healed. Patient continues to believe that many of his current symptoms are related to his pacemaker although I cannot definitely explain how that would occur unless it is simplyrelated to altered physiology with a normal heartbeat. Ordered: OV Est Pt Level 4 - 95143 - 25 min 4. DM2 Blood sugars are acceptable by report. Patient will be due for an A1c in 3 months. Ordered: OV Est Pt Level 4 - 82672 - 25 min 5. Hypertension HTN NOS Patient occasionally has lower blood pressures. Orthostatics were obtained today and normal. Ordered: OV Est Pt Level 4 - 66232 - 25 min Orders: furosemide, 1-2 tab(s), PO, Daily, Leg Swelling, # 180 tab(s), 3 Refill(s), Maintenance, Pharmacy: [facility] gabapentin, 300 mg = 1 cap(s), PO, 2xDay, with 600mg tablet, # 90 cap(s), 6 Refill(s), Maintenance,Pharmacy: [facility] gabapentin, 600 mg = 1 tab(s), PO, 2xDay, with 300mg tab, # 180 tab(s), 11 Refill(s), Maintenance, Pharmacy: [facility] Electronically Signed By: KEVIN BULLOCK MD On: 06/03/2017 06:47 AM Source: GIVTED Document Id: [id number] documented in this encounter Nursing Notes Alvina [...] LANGSTON LPN - 06/02/2017 18:45 CDT Source: [facility] Document Id: [id number] CDT!20 documented in this encounter Miscellaneous Notes Telephone Encounter - Conversion, Historical Provider Ser - 07/09/2017 2:37 PM CDT *Phone Message Document Contains Addenda Addendum by VINEET RAMIREZ LPN on July 09, 2017 15:52:03 CDT please see other message dated 07/09 regarding the subject below. From: [place] ([place] Family Medicine Clothes Drier Assembler) To: [place] Family Medicine Nurse Bennett; Sent: 07/09/2017 14:37:41 CDT Subject: *Phone Message Caller is: ( x ) Patient ( ) Mother ( ) Father ( ) Spouse ( ) Daughter ( ) Son ( ) Pharmacy ( ) Other: Physician: Ducnan Patient MRN #: Reason for Call: Ed called to see why no one has called him back to set up his pre op.. I tried to schedule him an nailhead setter appt and he says that will not work. He says it has to be 21st or 28th at 6:15 or 6:30 in the evening. He will not see any other doctor, but Duncan. He is very upset no one has tried to call him back and wants someone to call him right away. [phone] and keep trying. Message: Advice/Action: Source used: [...] phone number ( ) Source: [facility] POWERCHART Document Id: [id number] Telephone Encounter - Brit Felder - 06/20/2017 [...] Message From: BRIT FELDER ([place] [facility] Clothes Drier Assembler) To: [place] Family [facility] Nurse Guajardo; Sent: [...] phone number ( ) Source: [facility] POWERCHART Document Id: [id number] Miscellaneous - Kevin Bullock M.D. - 06/09/2017 7:10 PM CDT referral Document Contains Addenda Addendum by RAYMOND DIAZ on June 11, 2017 10:43:33 CDT From: RAYMOND DIAZ ([place] Clinic Process Coach/Referrals) To: KEVIN BULLOCK MD; Sent: 06/11/2017 10:43:33 CDT Subject: RE: referral Referral faxed to [facility]. They will contact patient to schedule an appointment. From: KEVIN BULLOCK MD To: [place] Clinic Process Coach/Referrals; Sent: 06/09/2017 19:10:00 CDT Subject: referral Referral Request Date: 06/09/2017 Provider: Kevin Whyte [facility] of [facility]erral/Department: Neurology Specific Clinical Question: Peripheral neuropathy Pertinent History: _ Best Appointment Days to Avoid: Best Time of day: Date/Time of appointment made: Sign off: Source: [facility] POWERCHART Document Id: [id number] Miscellaneous - Conversion, Historical Provider Ser - [...] done. He was rude and uncooperative. Source: [facility] Homes Document Id: [id number] Miscellaneous - Kevin Bullock M.D. - 06/02/2017 7:15 PM CDT Ambulatory Patient Summary [address] [id number] Visit Information Name: NOEMÍ LUNA [facility] Number: [id number] Current Date: 06/02/2017 19:15:22 Physicians [...] once a day Leg Swelling Routed to [facility] , gabapentin (gabapentin 300 mg oral capsule) 1 cap, Oral, two times a day with 600mg tablet This is aCHANGE gabapentin (gabapentin 600 mg oral tablet) 1 Tablet(s), Oral, two times a day with 300mg tab Routed to [facility] , multivitamin with minerals (Flintstones Complete oral [...] if you dont have one. Go to [email or web address] and click on Create Your Account. Then, follow the directions to complete the online form. Youll be asked for your [facility] number which you can find at the top of this document. Your Goals/Additional instructions: Source: [facility] POWERCHART Document Id: [id number] Miscellaneous - Kevin Bullock M.D. - 06/02/2017 7:15 PM CDT Ambulatory Discharge Medication List [address] [id number] Visit Information Name: NOEMÍ LUNA [facility] Number: [id number] Current Date: 06/02/2017 19:15:19 Attending [...] once a day Leg Swelling [email or web address] , gabapentin (gabapentin 300 mg oral capsule) 1 cap, Oral, two times a day with 600mg tablet This is aCHANGE gabapentin (gabapentin 600 mg oral tablet) 1 Tablet(s), Oral, two times a day with 300mg tab [facility] , multivitamin with minerals (Flintstones Complete [...] MD Signed On:02-JUN-2017 19:15:10 Additional Information: Source: [facility] Document Id: [id number] Miscellaneous - Alvina Langston, L.P.N. - 06/02/2017 [...] LANGSTON LPN - 06/02/2017 18:04 CDT Source: [facility] [employer] Document Id: [id number] CDT!9 Miscellaneous - Alvina Langston, L.P.N. - 06/02/2017 5:59 PM CDT Adult Manufacturing Controls Engineer Intake/History Adult Manufacturing Controls Engineer Intake/History Entered On: 06/02/2017 18:04 CDT Performed [...] Preferred Communication Mode : Verbal Languages : Albanian Is Patient Female and [...] ALVINA LANGSTON LPN 06/02/2017 17:59 CDT [facility] Document Id: [id number] CDT!46 Sorin Mallory RKevin. - 06/02/2017 2:50 PM CDT Visit From: SORIN WAGNER RN Sent: 06/02/2017 14:50:38 CDT Subject: Visit Attempted to call all 3 numbers for patient in chart to confirm appointment for tonight. No answer. LVM on patients personal cell. Source: [facility] [employer] Document Id: [id number] Nichelle Shoemaker - 06/01/2017 3:51 PM CDT Health Maintenance Reminder June 01, 2017 ED [place] [address] [facility] [phone] Dear NOEMÍ LUNA, We have developed a [...] visit with us more convenient. Please call [phone] to schedule services that are past due or that may shortly become due (thank you if you have already done so). We will follow up in three to six months should you have more services to schedule at that time. If you have already received any of the listed past due or upcoming services outside of [facility], please call [phone] to add them to your medical record. You may want to consider contacting your health insurance company to make sure these services are covered and find out if there will be any clk-ey-zghqjw expense. If you have any questions about the services listed above, or if you are no longer receiving care from [facility], please contact us at [phone]. Thank you for partnering to provide you with the best care possible. We encourage you to set up your Patient Online Services account [email or web address], where you can communicate in a convenient way with us, schedule appointments, receive lab results and more. To set up your account, you will need your [facility] Number, which is [phone]. Thank you for choosing the Kevin Copeland M.D. care team for your health care needs! You are receiving this notice based on [facility]'s recommended standard for preventive care and ongoing condition-specific services you may need. If you have completed or do not believe you need these services, please contact your provider or care team to discuss this further. Sincerely, NICHELLE HOLLIS Electronic Signature Electronically Signed By: NICHELLE HOLLIS On: June 01, 2017 This document has images extracted. Source: [employer] POWERCHART Document Id: [id number] documented in this encounter Plan of Treatment [...] POWERCHART S GMDL Comment: Test Performed by: [facility] - [address] [address] Albumin, S 3.3 (L) 3.4 - 4.7 GMDL POWERCHART Alpha-1 Globulin 0.3 0.1 - 0.3 GMDL POWERCHA RT Alpha-2 Globulin 1.1 (H) 0.6 - 1.0 GMDL POWERCHA RT Beta-Globulin 0.9 0.7 - 1.2 GMDL POWERCHART Gamma-Globulin 1.2 0.6 - 1.6 GMDL POWERCHART A/G Ratio 0.95 POWERCHART Impression See Comment POWERCHART Comment: RESULT: No apparent monoclonal protein o n serum electrophoresis. Test Performed by: [facility] - [address] [address] Specimen (Source) Anatomical Collection Method Collection Time [...] documented as of this encounter Care Teams Dialysis Tech Relationship Specialty Start Date End Date Kevin Bullock M.D. PCP - General 02/19/17 02/20/[address] [place] [phone] documented as of this encounter
--- OUTSIDE RECORDS SUMMARY | 2022-08-19 10:31 | XMS_ITS | Encounter Summary ---
:1960 Author Organization [facility] Address [address] [place] [address] Care Team Providers Name Role Phone Cintia Cobb M.D. Primary Care Provider [phone] Reason for Visit Reason Comments Communication Encounter Details Date Type Department Care Team Description 08/13/2017 Clinical Communication Department of [facility] Laura Mejia Communication Medicine, Jose Daniel Motta R.N. [address] [address] [place], [place] [phone] (Work) [phone] Social History Tobacco Use Types Packs/Day Years [...] Pt very pleasant during entire phone conversation. 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 PCP - General 02/19/17 02/20/[address] [place] [phone] documented as of this encounter
--- OUTSIDE RECORDS SUMMARY | 2022-08-19 10:31 | XMS_ITS | Encounter Summary ---
:1960 Author Organization [facility] Address [address] [place] [address] Care Team Providers Name Role Phone Cintia Cobb M.D. 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 Cultures were [...] Component Value Ref Test Analysis Performed At [facility] gist Range Method Time Signature Bacterial STAPHYLOCOCCUS COAGULASE-NEGATIVE 2017 [facility] Culture, 1+ 10:13 AM HEALTH Aerobic (A) CDT SYSTEM- [facility] LAB Specimen (Source) Anatomical Collection Method Collection Time Re ceived Time Location / / Volume Laterality Tissue, Superficial 12/21/2017 6:20 12/21 (Toe, Right) PM CDT 10:25 PM CDT Comment: Specimen Source Site: Tissue, S uperficial Eugene Bunch III, M.D. LAB MICROBIOLOGY - [facility] ORDERABLES Performing Organization Address City/State/ZIP Code Phon e Number [facility]- [address] [place] [address] [facility] DX Toes Right 3 Views (12/21/2017 [...] NT-Pro BNP 490 (H) <=76 pg/mL 12/21/2017 [facility] 6:42 PM CDT [facility]- [facility] Comment: REVISED RESULTS NT-proBNP values less [...] supplements. ??If the result does not [facility] clinical observations, repeat testing after [...] Biotin has bee n identified by the reproduction artist as a potential interfering substance. ??Higher concentr ations of biotin may be found in multivitamins, hair/nail supple ments, and workout supplements. ??If the result does not [facility] clinical observations, repeat testing after patient refrains fr om the use of supplements for at least 12 hours. Abnormal_High (Re ported 12/21/2017 18:08) Specimen Anatomical Collection Method Collection Time Receive d Time (Source) Location / / Volume Laterality Blood (Blood, 12/21/2017 5:20 PM 12/22/19 18 5:21 Venous) CDT PM CDT Eugene Bunch III, M.D. LAB BLOOD ADD-ON Performing Organization Address City/State/[facility] Phon e Number [facility]- [address] [place] [address] LAB (ABNORMAL) BMP (Basic Metabolic Panel) (12/21/2017 5:20 PM CDT) P athologist Signature Potassium, P 4.2 3.6 - 5.2 12/21/2017 [facility] mmol/L 5:41 PM [facility] Sodium, P 137 135 - 145 12/21/2017 [facility] mmol/L 5:41 PM [facility] Chloride, P 99 98 - 107 12/21/2017 [facility] mmol/L 5:41 PM [facility] Bicarbonate, P 27 22 - 29 12/21/2017 [facility] mmol/L 5:41 PM [facility] Anion Gap, P 11 7 - 15 12/21/2017 [facility] 5:41 PM [facility] BUN (Blood Urea 30 (H) 8 - 24 12/21/2017 [facility] Nitrogen), P mg/dL 5:41 PM [facility] Creatinine 1.08 0.74 - 12/21/2017 [facility] 1.35 mg/dL 5:41 PM [facility] eGFR-Black/Afri 86 >=60 12/21/2017 [facility] can [place] mL/min/BSA 5:41 PM [facility] [employer] [facility] Comment: ----ADDITIONAL INFORMATION---- Estimated GFR calculated using the 2009 CKD_EPI creatinine equation. eGFR Non-Black/ 75 >=60 mL/min/BSA 12/21/2017 5:41 PM [facility] [employer] [facility] Comment: ----ADDITIONAL INFORMATION---- Estimated GFR calculated using the 2009 CKD_EPI creatinine equation. Calcium, Total, P 8.8 (L) 8.9 - 10.1 mg/dL 12/21/2017 5 :41 PM [facility][NOTE 3] LAB Glucose, P 140 70 - 140 mg/dL 12/21/2017 5:41 PM [facility][NOTE 3] LAB Specimen Anatomical Collection Method Collection Time Receive d Time (Source) Location / / Volume Laterality Blood (Blood, 12/21/2017 5:20 PM 12/22/19 18 5:21 Venous) CDT PM CDT Eugene Bunch III, M.D. LAB BLOOD ADD-ON Performing Organization Address City/[facility] Phon e Number [facility]- [id number] [place] [address] LAB (ABNORMAL) CBC with Differential (12/21/2017 5:19 PM CDT) [facility] Method Time Signature Hemoglobin 9.5 (L) 13.2 - 12/21/2017 [facility] 16.6 g/dL 5:26 PM [facility] [employer] [facility] Hematocrit 29.5 (L) 38.3 - 12/21/2017 [facility] 48.6 % 5:26 PM [facility] [employer] [facility] Erythrocytes 3.08 (L) 4.35 - 12/21/2017 [facility] 5.65 5:26 PM [facility] x10(12)/L [facility] [employer] [facility] MCV 95.8 78.2 - 12/21/2017 [facility] 97.9 fL 5:26 PM [facility] RBC Distrib Width 13.8 11.8 - 12/21/2017 [facility] 14.5 % 5:26 PM [facility] [employer] [facility] Platelet Count 202 135 - 317 12/21/2017 [facility] x10(9)/L 5:26 PM CDT [facility] Leukocytes 7.3 3.4 - 9.6 12/21/2017 [facility] x10(9)/L 5:26 PM CDT [facility] Neutrophils 4.72 1.56 - 12/21/2017 [facility] 6.45 5:26 PM CDT HEALTH x10(9)/L [facility] Lymphocytes 1.62 0.95 - 12/21/2017 [facility] 3.07 5:26 PM CDT HEALTH x10(9)/L [facility] Monocytes 0.68 0.26 - 12/21/2017 [facility] 0.81 5:26 PM CDT HEALTH x10(9)/L [facility] Eosinophils 0.29 0.03 - 12/21/2017 [facility] 0.48 5:26 PM CDT HEALTH x10(9)/L [facility] Basophils 0.03 0.01 - 12/21/2017 [facility] 0.08 5:26 PM CDT [facility] x10(9)/L [facility] Specimen Anatomical Collection Method Collection Time Receive d Time (Source) Location / / Volume Laterality Blood (Blood, 12/21/2017 5:19 PM 12/22/19 18 5:21 Venous) CDT PM CDT Eugene Bunch III, M.D. LAB BLOOD ADD-ON Performing Organization Address City/State/ZIP Code Phon e Number [facility]- [address] [place] [address] [place] [facility] documented in this encounter Visit Diagnoses [...] 12/21/2017 clindamycin capsule 300 mg (for_CLEOCIN) (COMPLETED) 6038 (Given - Provider: Lesli Sotomayor R.N.) 300 mg, oral, Once, On 12/21/17 at 18 43, For 1 dose, Indications: Bone and/or joint infection documented in this encounter Additional Health Concerns Assessment Noted Time PHQ-9 Depression Total Score: 18 02/14/2013 9:53 AM CD T documented as of this encounter Care Teams Senior Pharmacy Technician Relationship Specialty Start Date End Date Cintia Cobb M.D. PCP - General 02/19/17 02/20/[address] [place] [phone] documented as of this encounter
--- OUTSIDE RECORDS SUMMARY | 2022-08-19 10:31 | XMS_ITS | Encounter Summary ---
:1960 Author Organization [facility] Address [address] [place] [address] Care Team Providers Name Role Phone Cintia Cobb M.D. Primary Care Provider [phone] Encounter Details Date Type Department Care Team Description 12/08/2017 Orders Only Department of [facility]iz [facility] Leg Right MedicineJose Daniel M.D. (Primary Dx) [facility], [address] [address] [place], [place] [phone] (W ork) [address] [phone] Social History Tobacco Use Types Packs/Day Years [...] as of this encounter Care Teams Metal Drawer Relationship Specialty Start Date End Date Cintia Cobb M.D. PCP - General 02/19/17 02/20/[address] [place] [phone] documented as of this encounter
--- OUTSIDE RECORDS SUMMARY | 2022-08-19 10:31 | XMS_ITS | Encounter Summary ---
:1960 Author Organization [facility] Address [address] [place] [address] Care Team Providers Name Role Phone Cintia Cobb M.D. Primary Care Provider [phone] Encounter Details Date Type Department Care Team Description 08/07/2017 Orders Only Department of [facility] Angélica Cobb Medicine, Jose Daniel Piper M.D. Clinic, in [address] [address] [place], [place] [phone] (W ork) [address] [phone] Social History Tobacco Use Types Packs/Day Years [...] documented as of this encounter Care Teams Church Business Administrator Relationship Specialty Start Date End Date Cintia Cobb M.D. PCP - General 02/19/17 02/20/[address] [place] [phone] documented as of this encounter
--- OUTSIDE RECORDS SUMMARY | 2022-08-19 10:31 | XMS_ITS | Encounter Summary ---
:1960 Author Organization [facility] Address [address] [place] [address] Care Team Providers Name Role Phone Cintia Cobb M.D. Primary Care Provider Reason for Visit Reason Comments Communication Encounter Details Date Type Department Care Team Description 08/07/2017 Clinical Communication Department of [facility] Communication Medicine, Cintia [facility], in [place] Piper. [address] [phone] Social History Tobacco Use Types Packs/Day Years Used Date Smoking Tobacco: Never Smokeless Tobacco: Never Sex Assigned at Date Recorded Not on file documented as of this encounter Miscellaneous Notes Telephone Encounter - Cintia Cobb M.D. - 08/07/2017 6:48 AM FURNACE ROASTER Please fax a copy of Ed's preop note and EKG to [facility]. Patient did not know the exact location to fax it to, but the phone number he calls is [phone] or [phone], so hopefully someone at one of those numbers can tell us where to direct it. Cintia Segura ACE ROASTER documented in this encounter Plan of Treatment Not on filedocumented as of this encounter Visit Diagnoses Not on filedocumented in this encounter Additional Health Concerns Assessment Noted Time PHQ-9 Depression Total Score: 18 02/14/2013 9:53 AM CD T documented as of this encounter Care Teams Drum Maker Relationship Specialty Start Date End Date Cintia Cobb M.D. PCP - General 02/19/17 02/20/[address] [place] [phone] documented as of this encounter
--- OUTSIDE RECORDS SUMMARY | 2022-08-19 10:31 | XMS_ITS | Encounter Summary ---
:1960 Author Organization [facility] Address [address] [place] [address] Care Team Providers Name Role Phone Cintia Cobb M.D. Primary Care Provider Reason for Referral Outpatient (Routine) - Closed Specialty Diagnoses / Procedures Referred By Contact Refer red To Contact Neurology Diagnoses Neuropathy Peripheral [facility] M.D. [address] [place] [phone] Referral ID Status Reason Start Date Expiration Date Visits V isits Requested Authorized [id number] Closed Specialty 12/24/2017 2018 1 1 Services Required Encounter Details Date Type Department Care Team Description 12/24/2017 Orders Only Department of [facility] Fei Cobb Peripheral Medicine, Jose Daniel Piper M.D. (Primary Dx) [facility], [address] [address] [place], [place] [phone] (W ork) [address] [phone] Social History Tobacco Use Types Packs/Day Years Used Date Smoking Tobacco: Never Smokeless Tobacco: Never Alcohol Use Standard Drinks/Week Comments No 0 (1 standard drink = 0.6 oz pure alcoho l) Sex Assigned at Date Recorded Not on file documented as of this encounter Plan of Treatment Scheduled Referrals Name Type Priority Associated Diagnoses Order [facility] Neurology - General Outpatient Referral Routine Neuropathy E xpected: consult (clinic) Peripheral 12/24/2017 (Approximate), Expires: 12/24/2020 documented as of this encounter Visit Diagnoses Diagnosis Neuropathy Peripheral - Primary documented in this encounter Additional Health Concerns Assessment Noted Time PHQ-9 Depression Total Score: 18 02/14/2013 9:53 AM CD T documented as of this encounter Care Teams Portable Pinch Riveter Relationship Specialty Start Date End Date Cintia Cobb M.D. PCP - General 02/19/17 02/20/[address] [place] [phone] documented as of this encounter
--- OUTSIDE RECORDS SUMMARY | 2022-08-19 10:31 | XMS_ITS | Encounter Summary ---
:1960 Author Organization [facility] Address [address] [place] [address] Care Team Providers Name Role Phone Cintia Cobb M.D. Primary Care Provider [phone] Reason for Visit Reason Comments Right great toe osteomyelitis Encounter Details Date Type Department Care Team Description 01/05/2018 Office Visit Department of [facility] Terri Cobb Mellitus Type 2 Ulcer Foot (HCC) (Primary Dx); Medicine, Jose Daniel Piper M.D. Diabetes Mellitus Type 2 Peripheral Neur opathy (HCC); [facility], [place] [address] Gastric Bypass Status Post [address] [address] [place], [place] [phone] (W ork) [address] [phone] Social History Tobacco Use Types Packs/Day Years [...] documented as of this encounter Care Teams Elementary School Band Director Relationship Specialty Start Date End Date Cintia Cobb M.D. PCP - General 02/19/17 02/20/[phone] [place] [phone] documented as of this encounter
--- OUTSIDE RECORDS SUMMARY | 2022-08-19 10:31 | XMS_ITS | Encounter Summary ---
:1960 Author Organization [facility] Address [address] [place] [address] Care Team Providers Name Role Phone Cintia Cobb M.D. Primary Care Provider [phone] Reason for Visit Reason Comments Fall the other day due to pacemaker Wants pacemaker re moved - hurt knee. 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 Pacemaker Cardiac Status Post; [facility], [place] [address] Pain Kne e Right; [facility] Gastric Bypass Status Post [address] [address] [place], [place] [phone] (W ork) [address] [phone] Social History Tobacco Use Types Packs/Day Years [...] eating. I did review this with the commodities requirements analyst who thought dumping syndrome might be a [...] documented as of this encounter Care Teams Media Traffic Manager Relationship Specialty Start Date End Date Cintia Cobb M.D. PCP - General 02/19/17 02/20/[address] [place] [phone] documented as of this encounter
--- OUTSIDE RECORDS SUMMARY | 2022-08-19 10:31 | XMS_ITS | Encounter Summary ---
:[address] [facility] Address [address] [place] [address] Care Team Providers Name Role Phone Cintia Cobb M.D. Primary Care Provider [phone] Encounter Details Date Type Department Care Team Description 03/30/2017 Confidential HX RST NO MAPPING Jennifer Shaffer M.D. [address] [place], [place] [phone] (Wo rk) Social History Tobacco Use Types Packs/Day Years Used Date Smoking Tobacco: Never Sex Assigned at Date Recorded Not on file documented as of this encounter Progress Notes Jennifer Shaffer M.D. - 03/30/2017 8:41 AM CDT DEMOGRAPHIC INFORMATION Clinic Number: [id number] Patient Name: Laz Luna Age: 56 Y Birthdate: 1960 Sex: M [facility] [address], [address] City: [place] [address] CONFIDENTIAL NOTE Service Date/Time: 30-Mar-2017 08:41 Provider: Jennifer Shaffer MD Pager: [phone] Service: CV Type/Desc: MIS Status: Fnl Revision [...] by Shama Shaffer MD Clinical Notes - [id number] Id: [id number] Status: Fnl documented in this encounter Plan of Treatment Not on filedocumented as of this encounter Visit Diagnoses Not on filedocumented in this encounter Additional Health Concerns Assessment Noted Time PHQ-9 Depression Total Score: 18 02/14/2013 9:53 AM CD T documented as of this encounter Care Teams Soil And Plant Scientist Relationship Specialty Start Date End Date Cintia Cobb M.D. PCP - General 02/19/17 02/20/[address] [place] [phone] documented as of this encounter
--- OUTSIDE RECORDS SUMMARY | 2022-08-19 10:31 | XMS_ITS | Encounter Summary ---
:1960 Author Organization [facility] Address [address] [place] [address] Care Team Providers Name Role Phone Cintia Cobb M.D. Primary Care Provider [phone] Encounter Details Date Type Department Care Team [...] as of this encounter Care Teams Automobile Tester Relationship Specialty Start Date End Date Cintia Cobb M.D. PCP - General 02/19/17 02/20/[address] [phone] documented as of this encounter
--- OUTSIDE RECORDS SUMMARY | 2022-08-19 10:31 | XMS_ITS | Encounter Summary ---
:1960 Author Organization [facility] Address [address] [place] [address] Care Team Providers Name Role Phone Cintia Cobb M.D. Primary Care Provider [phone] Encounter Details Date Type Department Care Team Description 01/09/2018 Infusion Department of Infusion [facility] Wound Toe Without Damage To Nail Open Subsequent (Primary Dx); Therapy in Jose Daniel Piper M.D. Neuropathy Peripheral; [address] Diabetes Mellitus Type 2 (HCC) [address] [place] [phone] Social History Tobacco Use Types Packs/Day Years [...] difficulties with this. 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 Ed's reports using hydrogen peroxide in the [...] and healthy. I recommended Ed see a van helper for evaluation of his wounds, toenails, and calloused areas. I provided him with Dr. Blackwell's name and let him know she typically sees patient's here on Mondays. Iadvised he could either call and set up and appointment with her here, or could check with [facility] on podiatry schedule there. He will consider this as he has not seen a van helper before, but is not sure he can make it work with his schedule. In the meantime, they will continue with every other day dressing changes and will follow up with [facility] in a week or so. I provided [...] documented as of this encounter Care Teams Branch Services Manager Relationship Specialty Start Date End Date Cintia Cobb M.D. PCP - General 02/19/17 02/20/[address] [phone] documented as of this encounter
--- OUTSIDE RECORDS SUMMARY | 2022-08-19 10:31 | XMS_ITS | Encounter Summary ---
:1960 Author Organization [facility] Address [address] [place] [address] Care Team Providers Name Role Phone Cintia Cobb M.D. Primary Care Provider [phone] Encounter Details Date Type Department Care Team Description 09/29/2017 Orders Only Department of [facility] Angélica Cobb Medicine, Jose Daniel Piper M.D. Clinic, in [address] [address] [place], [place] [phone] (W ork) [address] [phone] Social History Tobacco Use Types Packs/Day Years [...] documented as of this encounter Care Teams Spa Coordinator Relationship Specialty Start Date End Date Cintia Cobb M.D. PCP - General 02/19/17 02/20/[address] [place] [phone] documented as of this encounter
--- OUTSIDE RECORDS SUMMARY | 2022-08-19 10:31 | XMS_ITS | Encounter Summary ---
:1960 Author Organization [facility] Address [address] [place] [address] Care Team Providers Name Role Phone Kevin Bullock M.D. Primary Care Provider [phone] Encounter Details Date Type Department Care Team Description 03/17/[address] [facility] [place] [facility] [place] Kevin Aguirre M.D. [address] [place] [address] [phone] (Wo rk) Social History Tobacco Use Types [...] FEC OV Est Pt Level 4 - 25411 - 25 min Vitamin B12 and Folate Level*-Chairez 9156 2. Paresthesia NOS I am concerned about vitamin B12 deficiency although patient does note he typically takes his injections and also is taking a vitamin. Diabetic neuropathy is also possible but his A1c looks really good at this time. Ordered: OV Est Pt Level 4 - 95258 - 25 min 3. Pacemaker Cardiac S/P We remove some remaining suture fragments which will allow the corner of the pacemaker incision to heal. Heart rate is regular today. Ordered: OV Est Pt Level 4 - 27660 - 25 min 4. DM2 A1c is at goal. Lipid panel is also acceptable. Patient is not currently on any medications. Ordered: Ferritin-Chairez 8689 Iron and Total Fe Binding Capacity*-Chairez FEC OV Est Pt Level 4 - 42790 - 25 min Vitamin B12 and Folate Level*-Chairez 9156 5. Surgery Bariatric S/P Vitamin B12 and iron studies pending. Ordered: Ferritin-Chairez 8689 Iron and Total Fe Binding Capacity*-Chairez FEC OV Est Pt Level 4 - 25345 - 25 min Vitamin B12 and Folate Level*-Chairez 9156 6. Hypertension HTN NOS Blood pressure is acceptable. Continue current medications. BMP within normal limits. Ordered: OV Est Pt Level 4 - 07968 - 25 min Electronically Signed By: KEVIN BULLOCK MD On: 03/18/2017 07:02 AM Source: [facility] POWERCHART Document Id: [id number] documented in this encounter Miscellaneous Notes Miscellaneous [...] Message Addendum to earlier message from today, [id number] Patient forgot to mention, since they put in the pacemaker he is bruising very easily. Not on blood thinner meds. PCP: Kevin Whyte, requesting follow up call, may be difficult to reach. Source: [facility] POWERCHART Document Id: [id number] Telephone Encounter - Conversion, Historical Provider Ser - 05/04/2017 10:46 AM CDT *Phone Message Document Contains Addenda Addendum by ANGEL NGUYEN on May 06, 2017 06:42:10 CDT Copy of this message mailed to client and will continue to attempt to reach him by phone. Addendum by KEVIN BULLOCK MD on May 05, 2017 20:06:01 CDT From: KEVIN BULLOCK MD To: [facility] Nurse [facility]; Sent: 05/05/2017 20:06:01 [...] 2017 11:18:28 CDT From: HARVEY REDDY LPN ([facility]) To: KEVIN BULLOCK MD; Sent: 05/04/2017 11:18:28 CDT Subject: FW: *Phone Message Forwarded to PCP to review From: MARY FELDER ([facility] Bus Or Truck Garage Mechanic) To: [facility]; Sent: 05/04/2017 10:46:09 [...] like to have a return call to [phone]. If he is unable to answer please call the home # [phone]. Advice/Action: Source used: ( ) Verbalizes understanding [...] back cell phone number ( ) Source: [facility] Social StudiosCHART Document Id: [id number] Miscellaneous - Kevin Bullock M.D. - 03/20/2017 3:19 PM CDT Normal Results Letter March 20, 2017 NOEMÍ LUNA [address] [facility] [id number] Dear NOEMÍ LUNA, Please review your test [...] an e-mail account, join the other 900,000 [facility] patients who use the Patient Online Services to conveniently access their lab results by calling [phone] to sign up for an account. It [...] (mL/min/1.73m2) >60 03/17/2017 >60 01/05/2017 >=60 - cudA3EAVN (MDRD) (mL/min/1.73m2) >60 03/17/2017 >60 01/05/2017 >=60 [...] Total (mg/dL) 0.3 03/17/2017 0.1 - 1.0 Iron-[place] (mcg/dL) (L) 48 03/17/2017 50 - 150 - TIBC-[place] (mcg/dL) 319 03/17/2017 250 - 400 - Iron Sat-[place] (%) 15 03/17/2017 14 - 50 - [...] >1400 03/17/2017 180 - 914 - Folate Lvl-[place] (mcg/L) >20.0 03/17/2017 >=4.0 - Hgb (g/dL) [...] 01/05/2017 150 - 450 Sincerely, KEVIN VALENTIN [address] [place] [phone] Electronic Signature Electronically Signed By: KEIVN BULLOCK MD On: March 20, 2017 This document has images extracted. Source: [facility] POWERCHART Document Id: [id number] Electronically signed by Conversion, [facility] Corporate Director Of Human Resources [id number] at 03/21/2017 7:00 AM CDT Miscellaneous - Kevin Bullock M.D. - 03/17/2017 7:23 PM CDT Ambulatory Patient Summary [address] [place] [id number] Visit Information Name: CARLYLE NOEMÍ Jim [facility] Number: [id number] Current Date: 03/17/2017 19:23:08 [...] if you dont have one. Go to [email or web address] and click on Create Your Account. Then, follow the directions to complete the online form. Youll be asked for your [facility] number which you can find at the top of this document. Your Goals/Additional instructions: Source: [facility] POWERCHART Document Id: [id number] Miscellaneous - Kevin Bullock M.D. - 03/17/2017 7:23 PM CDT Ambulatory Discharge Medication List [address] [place], [place] [id number] Visit Information Name: NOEMÍ LUNA [facility] Number: [id number] Current Date: 03/17/2017 19:23:04 [...] in case of emergency. Electronically Signed By: EKVIN BULLOCK MD Signed On:17-MAR-2017 19:22:54 Additional Information: Source: [facility] [place] POWERCHART Document Id: [id number] Miscellaneous - Alvina Langston L.P.N. - 03/17/2017 6:34 PM CDT Adult Blanker Press Operator Intake/History Adult Blanker Press Operator Intake/History Entered On: 03/17/2017 18:39 CDT Performed On: 03/17/2017 18:34 CDT by ALVINA LANGSTON [facility] Intake Chief Complaint : Not [...] Preferred Communication Mode : Verbal Languages : Gabonese Is Patient Female and 13-50 no hysterectomy : No ALVINA LANGSTON LPN - 03/17/2017 18:34 CDT Subjective Pain Symptoms : Yes ALVINA LANGSTON [facility] - 03/17/2017 18:34 CDT Pain Scale Pain Scale Verbal 0-10 : Open ALVINA LANGSTON [facility] 03/17/2017 18:34 CDT Pain Pain Assessment Grid Pain 1 Pain 2 Location : Head Lower leg Laterality : Bilateral ALVINA LANGSTON [facility] - 03/17/2017 18:34 CDT ALVINA LANGSTON LPN - 03/17/2017 18:34 CDT Dependent Habits Exposure to Tobacco Smoke : Care provider denies smoking in home, Other: never Smoking Status : Never smoker Tobacco 2A : No Tobacco Use/Currently Using : No Tobacco Use/Last 30 Days : No Tobacco Use/Last 12 months : No Alcohol Use : No ALVINA LANGSTON PROSPECTING DRILLER HELPER - 03/17/2017 18:34 CDT Caffeine Use Grid Caffeine Use : Current Type : Coffee, Soft drinks Frequency : Weekly Amount : soda- weekly; coffee- 1x/week ALVINA LANGSTON LPN - 03/17/2017 18:34 CDT Recreational Drug Use Grid Drug Use : None ALVINA LANGSTON LPN 03/17/2017 18:34 CDT Source: [facility] POWERCHART Document Id: [id number]!48 documented in this encounter Plan of [...] Erythrocytes 2.92 (L) 4.32 - POWERCHART 5.72 G4592A Hemoglobin 9.8 (L) 13.5 - POWERCHART 17.5 [...] 50 POWERCHART Saturation Comment: Test Performed by: [facility] [address] [place] [address] Specimen (Source) Anatomical Collection Method Collection Time Re ceived Time Location / / Volume Laterality Blood 03/17/2017 7:30 PM CDT Kevin Valentin M.D. LAB BLOOD ADD-ON Performing Organization Address City/[facility] Phon e Number POWERCHART POWERCHART NA Ferritin (03/17/2017 7:30 PM CDT) athologist Signature Ferritin, S 47 24 - 336 POWERCHART MCGL Comment: Test Performed by: [address] [address] Specimen (Source) Anatomical Collection Method Collection Time Re ceived Time Location / / Volume Laterality Blood 03/17/2017 7:30 PM CDT Kevin Valentin M.D. LAB BLOOD ADD-ON Performing Organization Address City/[facility]/ZIP Code Phon e Number POWERCHART POWERCHART NA (ABNORMAL) Vitamin B12 and Folate (03/17/2017 7:30 PM CDT) athologist Signature Folate, S >20.0 >=4.0 MCGL POWERCHART Comment: Test Performed by: [facility] [address] [place] [address] Vitamin B12 Assay, S >1400 (H) 180 - 914 NGL POWER CHART Specimen (Source) Anatomical Collection Method Collection Time Re ceived Time Location / / Volume Laterality Blood 03/17/2017 7:30 PM CDT Kevin Valetnin M.D. LAB BLOOD NON ADD-ON Performing Organization Address City/[facility]/ZIP Code Phon e Number POWERCHART POWERCHART NA [...] esting for FH and FDB is available [facility]: FH/ADH Genetic Reflex Luu el (test ADHP). Acquired (non-genetic) causes of markedly increased LDL cholesterol include cholestatic liver disease due to the presence of LpX. If a genetic form of hypercholesterolemia is suspected, family studies including biochemical testing fo r lipids (total cholesterol,triglycerides, LDL cholesterol and HDL cholesterol) are recommended. ??Please contact the laboratory at or the on-line test catalog at [employer] for information about how to order [...] POWERCHART MMOLL HXeGFR (MDRD) >60 >=60 POWERCHART [id number] 2 eGFR Black/ >60 >=60 POWERCHART [place] [id number] 2 Bilirubin, Total, S 0.3 0.1 - [...] as of this encounter Care Teams Automobile Brakes Bonder Relationship Specialty Start Date End Date Kevin Bullock M.D. PCP - General 02/19/17 02/20/[address] [address] documented as of this encounter
--- OUTSIDE RECORDS SUMMARY | 2022-08-19 10:31 | XMS_ITS | Encounter Summary ---
:1960 Author Organization [facility] Address [address] [place] [address] Care Team Providers Name Role Phone Cintia Cobb M.D. Primary Care Provider [phone] Reason for Visit Reason Comments Right knee pain Encounter Details Date Type Department Care Team Description 09/01/2017 Office Visit Department of [place] Knee Initial Right (Primary Dx); Medicine, Jose Daniel Piper M.D. Neuropathy [facility], [address] [address] [place], [place] [phone] (W ork) [address] [phone] Social History Tobacco Use Types Packs/Day Years Used Date Smoking Tobacco: Never Smokeless Tobacco: Never Sex Assigned at Date Recorded Not on file documented as of this encounter Last Filed Vital Signs Vital Sign Reading Time Taken Comments Blood Pressure 146/83 09/01/2017 4:25 PM FOUNDRY FINISHER Pulse 62 09/01/2017 4:25 PM FOUNDRY FINISHER Temperature 36.6 ??C (97.9 ??F) 09/01/2017 4:25 PM FOUNDRY FINISHER Respiratory Rate - - Oxygen Saturation 100% 09/01/2017 4:25 PM FOUNDRY FINISHER Inhaled Oxygen Concentration - - Weight - - Height - - Body Mass Index - - documented in this encounter Patient Instructions Patient InstructionsCintia Cobb M.D. - 09/01/2017 4:45 PM FOUNDRY FINISHER Future Appointments Date Time Provider Department Center 10/13/2017 2:00 PM Eli Lopez D.[facility]. [facility] SEMFei CFERWZ DRY FINISHER documented in this encounter Progress Notes Xochitl Hackett L.P.N. - 09/01/2017 4:45 PM CST Client also had a fall off his trailer due to his pacemaker. States he had no dizziness or warning prior. Did hurt right knee, split lip and scuffed right hand. DRY FINISHER Cintia Cobb M.D. - 09/01/2017 4:45 PM [...] EMG which patient was willing to pursue. DRY FINISHER documented in this encounter Plan of Treatment Not on filedocumented as of this encounter Visit Diagnoses Diagnosis Injury Knee Initial Right - Primary Neuropathy Peripheral documented in this encounter Additional Health Concerns Assessment Noted Time PHQ-9 Depression Total Score: 18 02/14/2013 9:53 AM CD T documented as of this encounter Care Teams Neon Sign Maker Relationship Specialty Start Date End Date Cintia Cobb M.D. PCP - General 02/19/17 02/20/[address] [address] documented as of this encounter
--- OUTSIDE RECORDS SUMMARY | 2022-08-19 10:31 | XMS_ITS | Encounter Summary ---
:1960 Author Organization [facility] Address [address] [place] [address] Care Team Providers Name Role Phone Cintia Cobb M.D. Primary Care Provider [phone] Encounter Details Date Type Department Care Team Description 07/07/2017 Orders Only Department of [facility] Tigist Cobb reoperative Exam; Medicine, [place] Cintia Piper M.D. [facility], in [address] [place] [address] [place], [place] [phone] (W ork) [address] [phone] Social History Tobacco Use Types Packs/Day Years [...] as of this encounter Care Teams Supervisor Varnish Relationship Specialty Start Date End Date Cintia Cobb M.D. PCP - General 02/19/17 02/20/[address] [place] [address] [phone] documented as of this encounter
--- OUTSIDE RECORDS SUMMARY | 2022-08-19 10:31 | XMS_ITS | Encounter Summary ---
:1960 Author Organization [facility] Address [address] [place] [address] Care Team Providers Name Role Phone Cintia Cobb M.D. Primary Care Provider [phone] Encounter Details Date Type Department Care Team Description 09/01/2017 Hospital Encounter Department of [place] Jung harvey Initial Radiology in Cintia [facility]iste [place], [place] Keely Piper [address] [place] [phone] Social History Tobacco Use Types Packs/Day [...] Results for this VIEWS (most inpatients PM KEEL PRESS OPERATOR Initial Right procedure are in and all the results outpatients) section. documented in this encounter Results DX Knee Right 4+ Views (09/01/2017 5:43 PM KEEL PRESS OPERATOR) Anatomical Region Laterality Modality Lower Extremity, Knee Right Digital Radiograph y Specimen (Source) Anatomical Collection Method Collection Time Re ceived Time Location / / Volume Laterality 09/02/2017 8:32 AM KEEL PRESS OPERATOR Impressions 09/02/2017 8:35 AM KEEL PRESS OPERATOR IMPRESSION: Diffuse bone demineralization. No acute fracture or traumatic malalignment. Mild diffuse degenerative change. Patellar spurs. Small knee effusion versus synovitis. Mild patellar soft tissue edema. Benign soft tissue calcifications. Vascular calcifications. Narrative 09/02/2017 8:35 AM KEEL PRESS OPERATOR EXAM: DX KNEE RIGHT 4+ VIEWS Procedure [...] documented as of this encounter Care Teams Couples Therapist Relationship Specialty Start Date End Date Cintia Cobb M.D. PCP - General 02/19/17 02/20/[address] [place] [address] [phone] documented as of this encounter
--- OUTSIDE RECORDS SUMMARY | 2022-08-19 10:31 | XMS_ITS | Encounter Summary ---
:1960 Author Organization [facility] Address [address] [place] [address] Care Team Providers Name Role Phone Cintia Cobb M.D. Primary Care Provider [phone] Encounter Details Date Type Department Care Team Description 01/08/2018 Orders Only Department of Infusion Sruthi Campos Wou nd Toe Without Therapy in [place] Damage To [place] [address] Subsequent (Primary [address] [place] [address] Blvd Dx) [place] [phone] Social History Tobacco Use Types Packs/Day Years [...] documented as of this encounter Care Teams Studio Artist Relationship Specialty Start Date End Date Cintia Cobb M.D. PCP - General 02/19/17 02/20/[address] [place], [place] [address] [address] documented as of this encounter
--- OUTSIDE RECORDS SUMMARY | 2022-08-19 10:31 | XMS_ITS | Encounter Summary ---
:1960 Author Organization [facility] Address [address] [place] [address] Care Team Providers Name Role Phone Cintia Cobb M.D. Primary Care Provider [phone] Reason for Visit Reason Onset Date Comments pacemaker issues 07/20/2017 almost fell Encounter Details Date Type Department Care Team Description 07/20/2017 Clinical Department of [place] pacemaker issu es Communication Family Medicine, Cintia Copeland (almost fell) Jose Daniel Piper M.D. [facility], in [address] [address] [place], [place] [phone] (Work) [phone] Social History Tobacco Use Types Packs/Day Years [...] surgeries he wants the anaya doctor from [place] to remove his pacemaker and do it for free as she did not follow his living will. Patient expressed a lot of anger at the provider who put in his pacemaker. Please call patient to discuss. CTOR LEARNING AND DEVELOPMENT documented in this encounter Plan of Treatment Not on filedocumented as of this encounter Visit Diagnoses Not on filedocumented in this encounter Additional Health Concerns Assessment Noted Time PHQ-9 Depression Total Score: 18 02/14/2013 9:53 AM CD T documented as of this encounter Care Teams Guide Dog Trainer Relationship Specialty Start Date End Date Cintia Cobb M.D. PCP - General 02/19/17 02/20/[address] [place] [phone] documented as of this encounter
--- OUTSIDE RECORDS SUMMARY | 2022-08-19 10:31 | XMS_ITS | Encounter Summary ---
:1960 Author Organization [facility] Address [address] [place] [address] Care Team Providers Name Role Phone Cintia Cobb M.D. Primary Care Provider [phone] Encounter Details Date Type Department Care Team Description 07/18/2017 Abstract Department of Ophthalmology in Provider, Historical Natalie Gillette n [address] [place] [address] Social History Tobacco Use Types Packs/Day [...] documented as of this encounter Care Teams Child Support Agent Relationship Specialty Start Date End Date Cintia Cobb M.D. PCP - General 02/19/17 02/20/[address] [place] [phone] documented as of this encounter
--- OUTSIDE RECORDS SUMMARY | 2022-08-19 10:31 | XMS_ITS | Encounter Summary ---
:1960 Author Organization [facility] Address [address] [place] [address] Care Team Providers Name Role Phone Cintia Cobb M.D. Primary Care Provider [phone] Reason for Visit Reason Comments Pre-op Exam Appointment Request (Routine) - Closed Specialty Diagnoses / Procedures Referred By Contact Refer red To Contact Family Medicine Referral ID Status Reason Start Date Expiration Date Visits Requ ested Visits Authorized [id number] Closed 07/07/2017 01/03/2018 1 1 Encounter Details Date Type Department Care Team Description 08/04/2017 Office Visit Department of Family Tigist Cobb reoperative Exam (Primary Dx); Medicine, Jose Daniel Piper M.D. Diabetes Mellitus Type 2 (HCC); [facility], [place] [address] Neuropat hy Peripheral; [facility] Pacemaker Cardiac Status Post [place] [address] [address] [place], [place] [phone] (Work) [phone] Social History Tobacco Use Types Packs/Day Years Used Date Smoking Tobacco: Never Smokeless Tobacco: Never Sex Assigned at Date Recorded Not on file documented as of this encounter Last Filed Vital Signs Vital Sign Reading Time Taken Comments Blood Pressure 137/81 08/04/2017 6:49 PM COAT FITTER Pulse 75 08/04/2017 6:49 PM COAT FITTER Temperature 36.6 ??C (97.9 ??F) 08/04/2017 6:49 PM COAT FITTER Respiratory Rate - - Oxygen Saturation 100% 08/04/2017 6:49 PM COAT FITTER Inhaled Oxygen Concentration - - Weight 76.8 kg (169 lb 5.4 oz) 08/04/2017 6:49 PM COAT FITTER Height - - Body Mass Index 22.94 06/02/2017 6:04 PM CDT documented in this encounter Progress Notes Xochitl Hackett L.P.N. - 08/04/2017 6:45 PM CST Client here for preop exams. 08/12 - [facility], unsure of name of surgeon 08/28 - paniculectomy with Dr. Motley (?) in [place], unsure what site. Not feeling these days - since pacemaker placed. Legs heavy, difficulty to climb stairs, area aroundpacer painful, fatigued a lot of the time. Difficulty doing his job as he's often sleepy. 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 [...] PLT 162 08/04/2017 ECG 12 Lead Order: [id number] Status: Final result Visible to patient: No (Inaccessible in Patient Online Services) Dx: Preoperative Exam Ref Range & Units 3d ago Ventricular Rate ECG/Min BPM 66 IL Interval ms 192 QRSD Interval ms 182 QT Interval ms 468 QTC Interval ms 490 P Effie degrees 45 R Effie degrees -91 T Wave Effie degrees 71 Clinical Diagnosis Dual chamber electronic [...] to follow up withCardiology to this point. FITTER documented in this encounter Plan of Treatment Not on filedocumented as of this encounter Procedures Procedure Name Priority Date/Time Associated Diagnosis Comme nts ECG Routine 08/04/2017 8:03 PM Preoperative Exam Resu lts for this COAT FITTER procedure are i n the results section. CBC WITHOUT Routine 08/04/2017 7:58 PM Preoperative Exam Resu lts for this DIFFERENTIAL, B COAT FITTER procedure ar e in the results section. HEMOGLOBIN A1C, B Routine 08/04/2017 7:58 PM Diabetes Mellitus Results for this COAT FITTER Type 2 (HCC) procedure are i n the results section. BASIC METABOLIC Routine 08/04/2017 7:58 PM Preoperative Exam R esults for this PANEL, S/P COAT FITTER procedure are i n the results section. documented in this encounter Results ECG 12 Lead (08/04/2017 8:03 PM COAT FITTER) [facility] Method Time Signature Ventricular 66 BPM MUSE Rate ECG/Min IL Interval 192 ms MUSE QRSD Interval 182 ms MUSE QT Interval 468 ms MUSE QTC Interval 490 ms MUSE P Effie 45 degrees MUSE R Effie -91 degrees MUSE T Wave Effie 71 degrees MUSE Clinical Dual chamber electronic pacemaker MUSE Diagnosis Sinus rhythm When compared with ECG of 20-JAN-2017 05:46, No significant change was found Specimen Anatomical Collection Method Collection Time Receive d Time (Source) Location / / Volume Laterality 08/04/2017 8:03 PM 7 8:27 COAT FITTER PM COAT FITTER Narrative This result has an attachment that is no t available. Cintia Copeland M.D. ECG ORDERABLES Performing Organization Address City/State/ZIP Code Phon e Number MUSE MUSE NA Hemoglobin A1c (08/04/2017 7:58 PM COAT FITTER) P athologist Signature Hemoglobin A1c, 5.0 4.2 - 5.6 08/04/2017 [facility] B % 9:56 PM [facility] Specimen Anatomical Collection Method Collection Time Receive d Time (Source) Location / / Volume Laterality Blood (Blood, 08/04/2017 7:58 PM 08/04/20 17 8:02 Venous) COAT FITTER PM COAT FITTER Cintia Copeland M.D. LAB BLOOD ADD-ON Performing Organization Address City/[facility] Phon e Number [facility] [address] [place] [address] [facility] (ABNORMAL) CBC without Differential (08/04/2017 7:58 PM COAT FITTER) Patholo gist Method Time Signature Hemoglobin 11.3 (L) 13.2 - 08/04/2017 [facility] 16.6 g/dL 8:09 PM [facility] Hematocrit 34.4 (L) 38.3 - 08/04/2017 [facility] 48.6 % 8:09 PM [facility] Erythrocytes 3.56 (L) 4.35 - 08/04/2017 [facility] 5.65 8:[address] [facility] x10(12)/L [facility] MCV 96.6 78.2 - 08/04/2017 [facility] 97.9 fL 8:09 PM [facility] RBC Distrib Width 13.5 11.8 - 08/04/2017 [facility] 14.5 % 8:09 PM [facility] Platelet Count 162 135 - 317 08/04/2017 [facility] x10(9)/L 8:09 PM [facility] Leukocytes 7.7 3.4 - 9.6 08/04/2017 [facility] x10(9)/L 8:09 PM [facility] Specimen Anatomical Collection Method Collection Time Receive d Time (Source) Location / / Volume Laterality Blood (Blood, 08/04/2017 7:58 PM 08/04/20 17 8:02 Venous) COAT FITTER PM COAT FITTER Cintia Copeland M.D. LAB BLOOD ADD-ON Performing Organization Address City/State/ZIP Code Phon e Number [facility]- [address] [address] [facility] (ABNORMAL) BMP (Basic Metabolic Panel) (08/04/2017 7:58 PM [facility]) P athologist Signature Potassium, S 4.1 3.6 - 5.2 08/04/2017 [facility] mmol/L 9:56 PM [facility] Sodium, S 138 135 - 145 08/04/2017 [facility] mmol/L 9:56 PM [facility] Chloride, S 96 (L) 98 - 107 08/04/2017 [facility] mmol/L 9:56 PM [facility] Bicarbonate, S 31 (H) 22 - 29 08/04/2017 [facility] mmol/L 9:56 PM [facility] Anion Gap 11 7 - 15 08/04/2017 [facility] 9:56 PM [facility] BUN (Blood Urea 28 (H) 8 - 24 08/04/2017 [facility] Nitrogen), S mg/dL 9:56 PM [facility] Creatinine 1.13 0.74 - 08/04/2017 [facility] 1.35 mg/dL 9:56 PM [facility] eGFR 71 >=60 08/04/2017 [facility] Non-Black/Afric mL/min/BSA 9:56 PM [facility] EM- an [place] [facility] Comment: ----ADDITIONAL INFORMATION---- Estimated GFR calculated using the 2009 CKD_EPI creatinine equation. eGFR-Black/ 82 >=60 mL/min/BSA 2016 9:56 PM [facility] Comment: ----ADDITIONAL INFORMATION---- Estimated GFR calculated using the 2009 CKD_EPI creatinine equation. Calcium, Total, S 9.5 8.9 - 10.1 mg/dL 08/04/2017 9:56 PM [facility] Glucose, S 146 (H) 70 - 140 mg/dL 08/04/2017 9:56 PM [facility] Specimen Anatomical Collection Method Collection Time Receive d Time (Source) Location / / Volume Laterality Blood (Blood, 08/04/2017 7:58 PM 08/04/20 17 8:02 Venous) COAT FITTER PM COAT FITTER Cintia Copeland M.D. LAB BLOOD ADD-ON Performing Organization Address City/State/ZIP Code Phon e Number [facility]- [address] [place] [address] [facility] documented in this encounter Visit Diagnoses Diagnosis Preoperative Exam - Primary Diabetes Mellitus Type 2 (HCC) Neuropathy Peripheral Pacemaker Cardiac Status Post documented in this encounter Additional Health Concerns Assessment Noted Time PHQ-9 Depression Total Score: 18 02/14/2013 9:53 AM CD T documented as of this encounter Care Teams Director Agency & Strategic Partnerships Relationship Specialty Start Date End Date Cintia Cobb M.D. PCP - General 02/19/17 02/20/[address] [place] [phone] documented as of this encounter
--- OUTSIDE RECORDS SUMMARY | 2022-08-19 10:31 | XMS_ITS | Encounter Summary ---
:1960 Author Organization [facility] Address [address] [place] [address] Care Team Providers Name Role Phone Cintia Cobb M.D. Primary Care Provider Reason for Referral Outpatient (Routine) - Closed Specialty Diagnoses / Procedures Referred By Contact Refer red To Contact Diagnoses Neuropathy Peripheral [facility] Karla Piper M.D. [address] [place] [phone] Referral ID Status Reason Start Date Expiration Date Visits Requ ested Visits Authorized [id number] Closed 09/01/2017 02/28/2018 1 1 RICT MANAGER IN TRAINING Encounter Details Date Type Department Care Team Description 09/01/2017 Orders Only Department of [facility] Fei Cobb Peripheral Medicine, Jose Daniel Piper M.D. (Primary Dx) [facility], in [address] [place] [address] [place], [place] [phone] (W ork) [id number] [phone] Social History Tobacco Use Types Packs/Day Years Used Date Smoking Tobacco: Never Smokeless Tobacco: Never Sex Assigned at Date Recorded Not on file documented as of this encounter Plan of Treatment Not on filedocumented as of this encounter Results EMG (10/13/2017 1:53 PM DISTRICT MANAGER IN TRAINING) Specimen (Source) Anatomical Collection Method Collection Time Re ceived Time Location / / Volume Laterality 10/13/2017 1:53 PM DISTRICT MANAGER IN TRAINING Narrative EMG - 10/15/2017 10:20 AM DISTRICT MANAGER IN TRAINING 13-Oct-2017 ? Electromyography ? Final Report Study Number: 1 EMG Screen Printing Paster: Eli Lopez Referred by: Cintia Cobb () [...] Eli Lopez DO at 10/14/2017 5:04:07 PM DISTRICT MANAGER IN TRAINING Cintia Copeland M.D. NEUROLOGY ORDERABLES Performing Organization Address City/State/[facility] Code Phon e Number [facility] documented in this encounter Visit Diagnoses Diagnosis Neuropathy Peripheral - Primary documented in this encounter Additional Health Concerns Assessment Noted Time PHQ-9 Depression Total Score: 18 02/14/2013 9:53 AM CD T documented as of this encounter Care Teams Photoengraving Proofer Apprentice Relationship Specialty Start Date End Date Cintia Cobb M.D. PCP - General 02/19/17 02/20/[address] [place] [address] [place] [phone] documented as of this encounter
--- OUTSIDE RECORDS SUMMARY | 2022-08-19 10:31 | XMS_ITS | Encounter Summary ---
:1960 Author Organization [facility] Address [address] [place] [address] Care Team Providers Name Role Phone Cintia Cobb M.D. Primary Care Provider [phone] Encounter Details Date Type Department Care Team [...] documented as of this encounter Care Teams Radio Division Officer Relationship Specialty Start Date End Date Cintia Cobb M.D. PCP - General 02/19/17 02/20/[address] [place] [phone] documented as of this encounter
--- OUTSIDE RECORDS SUMMARY | 2022-08-19 10:31 | XMS_ITS | Encounter Summary ---
:1960 Author Organization [facility] Address [address] [place] [address] Care Team Providers Name Role Phone Cintia Cobb M.D. Primary Care Provider [phone] Reason for Visit Reason Onset Date Comments Radilogy semi-urgent result 12/22/2017 Encounter Details Date Type Department Care Team Description 12/22/2017 Clinical Loki Gallegos Communication Emergency Eugene W III, semi-urgen t result Department M.D. [address] [place] [phone] Social History Tobacco Use Types Packs/Day Years [...] documented as of this encounter Care Teams Insulation Blower Relationship Specialty Start Date End Date Cintia Cobb M.D. PCP - General 02/19/17 02/20/[address] [phone] documented as of this encounter
--- OUTSIDE RECORDS SUMMARY | 2022-08-19 10:31 | XMS_ITS | Encounter Summary ---
:1960 Author Organization [facility] Address [address] [place] [address] Care Team Providers Name Role Phone Cintia Cobb M.D. Primary Care Provider [phone] Reason for Referral Outpatient (Routine) - Closed Specialty Diagnoses / Procedures Referred By Contact Refer red To Contact Family Medicine Cintia Cobb DREW Piper M.D. [address] [place] [phone] Referral ID Status Reason Start Date Expiration Date Visits Requ ested Visits Authorized [id number] Closed 12/22/2017 06/20/2018 1 1 Encounter Details Date Type Department Care Team Description 12/22/2017 Orders Only Department of [facility] Terri Cobb iabetes Mellitus Type Medicine, Jose Daniel Piper M.D. 2 (HCC) (Primary Dx) [facility], [address] [address] [place], [place] [phone] (W ork) [id number] [phone] Social History Tobacco Use Types Packs/Day Years Used Date Smoking Tobacco: Never Smokeless Tobacco: Never Alcohol Use Standard Drinks/Week Comments No 0 (1 standard drink = 0.6 oz pure alcoho l) Sex Assigned at Date Recorded Not on file documented as of this encounter Plan of Treatment Scheduled Referrals Name Type Priority Associated Diagnoses [facility] Outpatient Referral Routine Expec it: office visit 01/05/2018, (clinic) Expires: 12/22/2020 documented as of this encounter Results Lipid Panel (03/02/2018 7:37 PM CDT) athologist Signature Cholesterol, 139 mg/dL 03/02/2018 [facility] Total 8:26 PM CDT [facility] [employer] [facility] Comment: ----REFERENCE VALUE---- Desirable: < 200 Borderline high: 200 - 239 High: > or = 240 Triglycerides 40 mg/dL 03/02/2018 8:26 PM CDT [facility] [employer] [facility] Comment: ----REFERENCE VALUE---- Normal: <150 Borderline high: 150-199 High: 200-499 Very high: > or =500 Cholesterol, HDL, S 56 >=40 mg/dL 03/02/2018 8:26 PM CDT [facility] [employer] [facility] Calculated LDL 75 mg/dL 03/02/2018 8:26 PM CDT [facility] [employer] [facility] Comment: ----REFERENCE VALUE---- Desirable: <100 Above Desirable: 100-129 Borderline high: 130-159 High: 160-189 Very high: > or =190 Cholesterol, Non-HDL, 83 mg/dL 03/02/2018 8:26 PM CDT [facility] Comment: ----REFERENCE VALUE---- Desirable: <130 [...] Code Phon e Number [facility]- [id number] [place] [address], [place] [address] [facility] Hemoglobin A1c (03/02/2018 7:37 PM CDT) P athologist Signature Hemoglobin A1c, 5.6 4.2 - 5.6 03/02/2018 [facility] B % 8:03 PM CDT [facility] [place] [facility] Specimen Anatomical Collection Method Collection Time Receive d Time (Source) Location / / Volume Laterality Blood (Blood, 03/02/2018 7:37 PM 03/02/20 18 7:44 Venous) CDT PM CDT Cintia Copeland M.D. LAB BLOOD ADD-ON Performing Organization Address City/State/ZIP Code Phon e Number [facility]- [address] [place] [address] [facility] [facility] documented in this encounter Visit Diagnoses Diagnosis Diabetes Mellitus Type 2 (HCC) - Primary documented in this encounter Additional Health Concerns Assessment Noted Time PHQ-9 Depression Total Score: 18 02/14/2013 9:53 AM CD T documented as of this encounter Care Teams Senior Data Analyst Relationship Specialty Start Date End Date Cintia Cobb M.D. PCP - General 02/19/17 02/20/[address] [place] [phone] documented as of this encounter
--- OUTSIDE RECORDS SUMMARY | 2022-08-19 10:32 | XMS_ITS | Encounter Summary ---
:1960 Author Organization [facility] Address [address] [place] [address] Care Team Providers Name Role Phone Unavailable Primary Care Provider Unavailable Encounter Details Date Type Department Care Team Description 08/24[facility]2015 [facility] Alon Benavides M.D. [address] [place], [place] [address] (Wo rk) Social History Tobacco Use Types Packs/Day Years Used Date Smoking Tobacco: Never Assessed Sex Assigned at Date Recorded Not on file documented as of this encounter Last Filed Vital Signs Vital Sign Reading Time Taken Comments Blood Pressure 128/80 08/24/2015 8:11 PM SKIN DIVER Pulse 53 08/24/2015 8:11 PM SKIN DIVER Temperature - - Respiratory Rate 16 08/24/2015 8:11 PM SKIN DIVER Oxygen Saturation - - Inhaled Oxygen Concentration - - Weight 95 kg (209 lb 7 oz) 08/24/2015 6:36 PM SKIN DIVER Height 180 cm (5' 10.87) 08/24/2015 8:11 PM SKIN DIVER Body Mass Index 29.32 08/24/2015 6:36 PM SKIN DIVER documented in this encounter Discharge Summaries Nik Cisneros R.N. - 08/24/2015 8:32 PM CST ED Discharge Instructions [address] [address] Name: JEREMY NOEMÍ Jim Date of : 1960 12:00 AM Visit Date: 08/24/2015 6:28 PM [facility] Number: [id number] Address: [address] [facility] [phone] Primary Care Provider: KEVIN KILGORE MD IMPORTANT: [facility] in [place] would like to thank you for allowing us to assist you with your healthcare needs. The following includes patient education materials and informationregarding your injury/illness. Diagnosis: Viral Syndrome Follow-Up Instructions: With: Address: When: KEVIN KILGORE [address] [place] [id number] [facility] (1) Within As Needed Comments: As [...] and be dangerous to your health. ?? Xoru-cav-ascvjkb remedies won't shorten the length of the [...] better with fever medication ?? Convulsion ?? [phone] [facility], [address] [place] [address]. All rights reserved. This information is not [...] if you dont have one. Go to [email or web address] and click on Create Your Account. Then, follow the directions to complete the online form. Youll be asked for your [facility] number which you can find [...] Provider Signature Date Time Source: [facility] POWERCHART Document Id: [id number] DIVER Nik Cisneros R.N. - 08/24/2015 8:32 PM CST ED Depart Summary [facility] Emergency Department Clinical Discharge Summary PERSON INFORMATION Name NOEMÍ LUNA Age 55 Years 1960 12:00 AM Sex Male Language Sudanese PCP KEVIN KILGORE MD Marital Status N [id number] Visit Id Visit Reason Body aches; Difficulty breathing/shakes/head pain Specialty Enc Type Emergency Med Service Emergency Medicine Referred by Track Group [facility] ED Discharge 08/24/2015 8:32 PM Tracking Id [id number] Checkout 08/24/2015 8:32 PM Checkin 08/24/2015 6:28 PM Acuity 5 -Non Urgent Dispo Type * Discharged to Home or Self Care Arrival 08/24/2015 6:28 PM Reg Status Complete LOS 000 02:04 Address: [address] [phone] Comment: PROVIDER INFORMATION Provider Role Provider Contact Time ALON BENAVIDES MD ED Provider 08/24/15 18:53 BOBBY MUNOZ SUPERVISOR PIGMENT MAKING Nurse 08/24/15 18:53 NIK CISNEROS SUPERVISOR PIGMENT MAKING Nurse 08/24/15 20:32 DIAGNOSIS Viral Syndrome Comment: PATIENT EDUCATION INFORMATION Instructions: VIRAL SYNDROME (Adult) Follow up: With: Address: When: KEVIN FERRER-[address] [address] [phone] [facility] (1) Within As Needed Comments: As needed. If your lightheadedness continues or you don't feel better by Thursday then call your PCP. Focus on hydration. Source: [facility] Document Id: [id number] DIVER documented in this encounter Medications at Time of Discharge Medication Sig Dispensed Refills Start Date End Date ferrous sulfate 325 mg Take 1 tablet by 0 015 11/24/2017 (65 mg iron) tablet mouth 2 (two) times a day. documented as of this encounter ED Notes Nik Cisneros R.N. - 08/24/2015 8:20 PM CST ED Pain Assessment ED Pain Assessment Entered On: 08/24/2015 20:20 SKIN DIVER Performed On: 08/24/2015 20:20 SKIN DIVER by NIK CISNEROS RN Pain Assessment Pain Symptoms : Yes NIK CISNEROS RN - 08/24/2015 20:20 SKIN DIVER Source: [employer] Document Id: [id number] SKIN DIVER!3 DIVER Nik Cisneros R.N. - 08/24/2015 8:19 PM CST ED Disposition Summary ED Disposition Summary Entered On: 08/24/2015 20:20 SKIN DIVER Performed On: 08/24/2015 20:19 SKIN DIVER by NIK CISNEROS RN ED Disposition Summary Accompanied By : Alone Mode of Discharge : Ambulatory Transportation : Private vehicle Discharge From ED With : Home Med List Printed Discharge Instructions Given to Patient : Yes Patient Status at Discharge from ED : Unchanged NIK CISNEROS RN - 08/24/2015 20:19 SKIN DIVER Source: [facility] Document Id: [id number] SKIN DIVER!8 DIVER Alon Benavides M.D. - 08/24/2015 7:24 PM CST General Medical *ED Document Contains Addenda Addendum by ALON BENAVIDES MD on 24 August 2015 20:15 SKIN DIVER The patient appears well, does not appear [...] Note : Chief Complaint Description 08/24/2015 18:45 SKIN DIVER Chief Complaint Description see triage note 08/24/2015 18:36 SKIN DIVER Chief Complaint Description Body aches, cough, headache, [...] on 09/29/2012 at 52 years. Comments: 09/30/2012 SKIN DIVER 15:06 STEVE COUCH CNP left Genital warts (078.19) Comments: 09/30/2013 SKIN DIVER 11:47 SKIN DIVER - ANOOP QUEVEDO R CAFETERIA ASSOCIATE onset unknown Tinea pedis* (110.4) Comments: 09/30/2013 SKIN DIVER 11:47 SKIN DIVER ANOOP GONZALEZ R CAFETERIA ASSOCIATE onset unknown Tinea cruris. (110.3) Comments: 09/30/2013 SKIN DIVER 11:47 SKIN DIVER ANOOP GONZALEZ R CAFETERIA ASSOCIATE onset unknown, DM 2, HTN. Surgical history: Gastric bypass ([id number]) on 11/19/2014 at 54 Years. Cystoscopy ([id number]) on 12/26/2009 at 49 Years. Comments: 02/20/2010 08:36 - STEVE ANDREA CNP [place] [facility] / normal PSA, TOTAL SCREENING ([id number]) on 12/26/2009 at 49 Years. Comments: 02/20/2010 08:38 - STEVE ANDREA CNP Done at [place] / Result: 1.55 Discectomy ([id number]) on 02/19/1989 at 28 Years. Comments: 12/28/2009 09:38 - STEVE ANDREA CNP lumbar L4-L5. Social history: Reviewed as documented in chart, Alcohol use: Denies, Tobacco use: Denies, Drug use:Denies. Physical Examination Vital Signs: Vital Signs 08/24/2015 18:48 SKIN DIVER Systolic Blood Pressure 131 mmHg Diastolic Blood Pressure 79 mmHg 08/24/2015 18:36 SKIN DIVER Temperature Core 37.2 DegC Peripheral Pulse Rate 60 /min Respiratory Rate 18 /min SpO2 98 % Systolic Blood Pressure 141 mmHg HI Diastolic Blood Pressure 80 mmHg Mean Arterial Pressure 100 mmHg , Measurements 08/24/2015 18:48 SKIN DIVER Height 180 cm 08/24/2015 18:36 SKIN DIVER Height 180 cm Height Source Stated Dosing Weight 95.00 kg Actual Weight 95 kg Weight Source Standing scale Body Mass Index 29.32 kg/m2 , SpO2 08/24/2015 18:36 SKIN DIVER SpO2 98 % . General: Alert and [...] BENAVIDES MD On: 08/24/2015 07:57 PM Source: [facility] POWERCHART Document Id: [id number]} DIVER Bobby Munoz RPiliN. - 08/24/2015 6:45 PM CST ED Primary Assessment Document Has Been Updated ED Primary Assessment Entered On: 08/24/2015 19:04 SKIN DIVER Performed On: 08/24/2015 18:45 SKIN DIVER by BOBBY MUNOZ RN Reason For Visit (As Of: 08/24/2015 19:04:13 SKIN DIVER) Problems(Active) BPH without urinary obstruction (ICD-9-CM :600.00 ) Name of Problem: BPH without urinary obstruction; Recorder: STEVE ANDREA CNP; Confirmation: Confirmed ; Classification: Medical ; Code: 600.00 ; Contributor System: Diditz ; Last Updated: 02/15/2010 10:00 CDT ; [...] System: PowerChart ; Last Updated: 07/24/2011 10:45 SKIN DIVER ; Life Cycle Date: 12/05/2010 ; Life Cycle Status: Active ; Responsible Provider: STEVE ANDREA CNP; Vocabulary: ICD-9-CM Eczema (ICD-9-CM :692.9 ) Name of Problem: Eczema ; Recorder: STEVE ANDREA CNP; Confirmation: Confirmed ; Classification: Medical ; Code: 692.9 ; Contributor System: TrufaChart ; Last Updated: 01/25/2014 16:29 CDT ; [...] System: PowerChart ; Last Updated: 07/29/2014 7:02 SKIN DIVER ; Life Cycle Status: Active ; Responsible [...] System: PowerChart ; Last Updated: 09/30/2012 15:06 SKIN DIVER ; Life Cycle Date: 09/30/2012 ; Life [...] Comments: 09/30/2013 11:47 - QUEVEDO, ANOOP R CAFETERIA ASSOCIATE onset unknown Hyperlipidemia (ICD-9-CM :272.4 ) Name [...] Code: 695.89 ; Last Updated: 07/14/2012 14:36 SKIN DIVER ; Life Cycle Status: Active ; Responsible [...] System: PowerChart ; Last Updated: 09/05/2010 9:56 SKIN DIVER ; Life Cycle Date: 09/05/2010 ; Life Cycle Status: Active ; Responsible Provider: STEVE ANDREA CNP; Vocabulary: ICD-9-CM ; Comments: 09/30/2013 11:ANOOP ISAAC R CAFETERIA ASSOCIATE onset unknown Optic disc cupping (ICD-9-CM :377.14 [...] Medical ; Code: 110.4 ; Contributor System: TrufaChart ; Last Updated: 02/02/2014 8:24 CDT ; Life Cycle Date: 06/01/2013 ; Life Cycle Status: Active ; Responsible Provider: MARILUZ FRAGA MD; Vocabulary: ICD-9-CM ; Comments: 09/30/2013 11:ANOOP ISAAC R CAFETERIA ASSOCIATE onset unknown Ulcer of skin NOS (ICD-9-CM :707.9 ) Name of Problem: Ulcer of skin NOS ; Recorder: HALEIGH SCHULTZ CNP; Confirmation: Confirmed ; Classification: UPDATE NEEDED ; Code: 707.9 ; Contributor System: Diditz ; Last Updated: 09/18/2010 8:25 SKIN DIVER ; Life Cycle Date: 09/18/2010 ; Life [...] Medical ; Code: 788.31 ; Contributor System: Diditz ; Last Updated: 02/20/2010 8:39 CDT ; [...] PNED ; Probability: 0 ; Diagnosis Code: [id number] Triage Chief Complaint Description : see triage note Mode of Arrival ED : Private vehicle Track : Medical Languages : Sudanese Treatments Prior to Arrival : None Is Patient Female and 13-50 no hysterectomy : No BOBBY MUNOZ RN - 08/24/2015 18:55 SKIN DIVER Pain Assessment Pain Symptoms : Yes BOBBY MUNOZ RN - 08/24/2015 18:55 SKIN DIVER Respiratory Airway : Patent Respirations : Unlabored Respiratory Pattern : Regular Oxygen Therapy : Room air Respiratory Detailed Assessment : Yes BOBBY MUNOZ RN - 08/24/2015 18:55 SKIN DIVER Resp Detailed Respiratory Patient Stated Symptoms : None Distress : None Cough : Productive Sputum Amount : Scant Respiratory Note : body aches, sinus congestion, rhinorrhea, headache. BOBBY MUNOZ RN - 08/24/2015 18:55 SKIN DIVER Cardiovascular Heart Rhythm : Regular Skin Color : Normal for ethnicity Skin Description : Dry Skin Temperature : Cool BOBBY MUNOZ RN - 08/24/2015 18:55 SKIN DIVER Neurological Last Well Time Known : Not applicable Level of Consciousness : Alert Orientation : Appropriate for age Characteristics of Speech : Appropriate for age Neuro Patient Stated Symptoms : None Gait : Steady Swallowing Difficulty/Aspiration Risk : Cough BOBBY MUNOZ RN - 08/24/2015 18:55 SKIN DIVER ED Psychosocial Affect/Behavior : Calm, Appropriate Domestic Abuse Concerns : None Behavioral Health Screen/Safety Assmt : No BOBBY MUNOZ RN - 08/24/2015 18:55 SKIN DIVER Gastrointestinal Nutrition ED : Adequate BOBBY MUNOZ RN - 08/24/2015 18:55 SKIN DIVER Musculoskeletal Fall Prevention Education Provided : Yes BOBBY MUNOZ RN - 08/24/2015 18:55 SKIN DIVER Social Habits Exposure to Tobacco Smoke : Care provider denies smoking in home, Other: never Smoking Status : Never smoker Tobacco 2A : Unknown BOBBY MUNOZ RN - 08/24/2015 18:55 SKIN DIVER Alcohol Use Grid Alcohol Use : No BOBBY MUNOZ RN - 08/24/2015 18:55 SKIN DIVER Recreational Drug Use Grid Drug Use : None BOBBY MUNOZ RN - 08/24/2015 18:55 SKIN DIVER Source: [facility] POWERCHART Document Id: [id number] SKIN DIVER!53 DIVER Bobby Munoz RPiliN. - 08/24/2015 6:36 PM CST ED Triage Assessment Document Has Been Updated ED Triage Assessment Entered On: 08/24/2015 18:43 SKIN DIVER Performed On: 08/24/2015 18:36 SKIN DIVER by BOBBY MUNOZ RN Reason For Visit (As Of: 08/24/2015 18:43:01 SKIN DIVER) Problems(Active) BPH without urinary obstruction (ICD-9-CM :600.00 ) Name of Problem: BPH without urinary obstruction; Recorder: STEVE ANDREA CNP; Confirmation: Confirmed ; Classification: Medical ; Code: 600.00 ; Contributor System: TrufaChart ; Last Updated: 02/15/2010 10:00 CDT ; [...] Medical ; Code: 250.02 ; Contributor System: TrufaChart ; Last Updated: 07/24/2011 10:45 SKIN DIVER ; Life Cycle Date: 12/05/2010 ; Life Cycle Status: Active ; Responsible Provider: STEVE ANDREA CNP; Vocabulary: ICD-9-CM Eczema (ICD-9-CM :692.9 ) Name of Problem: Eczema ; Recorder: STEVE ANDREA CNP; Confirmation: Confirmed ; Classification: Medical ; Code: 692.9 ; Contributor System: TrufaChart ; Last Updated: 01/25/2014 16:29 CDT ; [...] System: PowerChart ; Last Updated: 07/29/2014 7:02 SKIN DIVER ; Life Cycle Status: Active ; Responsible [...] System: PowerChart ; Last Updated: 09/30/2012 15:06 SKIN DIVER ; Life Cycle Date: 09/30/2012 ; Life [...] Code: 695.89 ; Last Updated: 07/14/2012 14:36 SKIN DIVER ; Life Cycle Status: Active ; Responsible [...] System: PowerChart ; Last Updated: 09/05/2010 9:56 SKIN DIVER ; Life Cycle Date: 09/05/2010 ; Life [...] Vocabulary: ICD-9-CM ; Comments: 09/30/2013 11:ANOOP ISAAC CAFETERIA ASSOCIATE onset unknown Ulcer of skin NOS (ICD-9-CM :707.9 ) Name of Problem: Ulcer of skin NOS ; Recorder: HALEIGH SCHULTZ CNP; Confirmation: Confirmed ; Classification: UPDATE NEEDED ; Code: 707.9 ; Contributor System: PowerChart ; Last Updated: 09/18/2010 8:25 SKIN DIVER ; Life Cycle Date: 09/18/2010 ; Life Cycle Status: Active ; Responsible Provider: HALEIGH SCHULTZ CNP; Vocabulary: ICD-9-CM ; Comments: 09/30/2013 11:ANOOP ISAAC CAFETERIA ASSOCIATE onset unknown Unspecified Adjustment Reaction (ICD-9-CM :309.9 [...] Medical ; Code: 788.31 ; Contributor System: Diditz ; Last Updated: 02/20/2010 8:39 CDT ; [...] PNED ; Probability: 0 ; Diagnosis Code: [id number] Triage Chief Complaint Description : Body aches, cough, headache, shakes, since 08/18/15. Information Given By : Patient Accompanied By : Alone Mode of Arrival ED : Private vehicle Track : Medical Languages : Sudanese Patient Informed of Triage Location : Emergency department Vital Signs Assessed : Yes GCS Assessed : Yes Treatments Prior to Arrival : None Is Patient Female and 13-50 no hysterectomy : No BOBBY MUNOZ RN - 08/24/2015 18:36 SKIN DIVER Vital Signs Temperature Core : 37.2 DegC(Converted [...] kg/m2 BOBBY MUNOZ RN - 08/24/2015 18:36 SKIN DIVER Lois Coma Eye Opening Response [place] : Spontaneously Best Verbal Response [place] : Oriented Best Motor Response [place] : Obeys simple commands Lois Coma Score : 15 SERA MUNOZY Soumya RN - 08/24/2015 18:36 SKIN DIVER Pain Assessment Pain Symptoms : Yes BOBBY MUNOZ RN - 08/24/2015 18:36 SKIN DIVER Pain Scale Pain Scale Non-Verbal PainAD : Open SERA MUNOZY Soumya RN - 08/24/2015 18:36 SKIN DIVER PAINAD Breathing : Normal breathing Negative vocalization : None Facial expression : Smiling or inexpressive Body language : Relaxed Consolability : No need to console PAINAD Score : 0 BOBBY MUNOZ RN - 08/24/2015 18:36 SKIN DIVER Comfort Measures Comfort Measures Grid Positioning : Yes BOBBY MUNOZ RN - 08/24/2015 18:36 SKIN DIVER ED Physician Notification Time ED Physician Notification Time : 08/24/2015 18:42 SKIN DIVER BOBBY MUNOZ RN - 08/24/2015 18:36 SKIN DIVER ERIN ERIN Level 1 : No ERIN Level 2 : No ERIN Level 3 : One BOBBY MUNOZ RN - 08/24/2015 18:36 SKIN DIVER DCP GENERIC CODE Tracking Acuity : 5 -Non Urgent Tracking Group : [facility] ED MUNOZBOBBY Soumya RN - 08/24/2015 18:36 SKIN DIVER Allergy (As Of: 08/24/2015 18:43:01 SKIN DIVER) Allergies (Active) Cipro Estimated Onset Date: Unspecified ; Created By: STEVE ANDREA CNP; Reaction Status: Active ;Category: Drug ; Substance: Cipro ; Type: Allergy ; Updated By: STEVE ANDREA CNP; Reviewed Date: 08/24/2015 18:42 SKIN DIVER Influenza Virus Vaccine Estimated Onset Date: Unspecified ; Reactions: diarrhea ; Created By: STEVE ANDREA CNP; Reaction Status: Active ; Category: Drug ; Substance: Influenza Virus Vaccine ; Type: Intolerance ; Updated By: STEVE ANDREA CNP; Reviewed Date: 08/24/2015 18:42 SKIN DIVER ID Screen Drug Resistant Organism : No Travel Within Last 21 Days : No Contact with someone with Ebola : No BOBBY MUNOZ RN - 08/24/2015 18:36 SKIN DIVER Immunizations Immunizations Current : Yes BOBBY MUNOZ RN - 08/24/2015 18:36 SKIN DIVER Source: [facility] POWERCHART Document Id: [id number] SKIN DIVER!61 DIVER documented in this encounter Miscellaneous Notes Miscellaneous - Juliette Donaldson R.N. - 07/16/2016 2:18 PM CST Health Maintenance Reminder July 16, 2016 NOEMÍ LUNA [address] [facility] [phone] Dear NOEMÍ LUNA, This is a reminder that you are due for a Colonoscopy appointment: at [facility]. Please call the Clinic registration at to schedule an appointment with your primary provider. A pre-procedure physical needs to be performed prior to your procedure. Your colonoscopy willbe scheduled by your primary provider upon completion of the physical. If you had this done elsewhere, please notify the Endoscopy department [phone], to update your chart. We look forward to seeing you soon. Thank you for choosing the [facility] in [place]. Sincerely, JULIETTE DONALDSON Electronic Signature Electronically Signed By: JULIETTE DONALDSON RN On: July 16, 2016 This document has images extracted. Source: [facility] [email or web address] Document Id: [id number] Miscellaneous - Moraima Chase - 08/27/2015 10:19 AM CST Reminder Msg Document Contains Addenda Addendum by JULIETTE DONALDSON RN on July 16, 2016 14:18:45 SKIN DIVER Third letter sent today. Addendum by MORAIMA CHASE on March 19, 2016 12:00:47 CDT second letter will be sent to patient March 2016 From: MORAIMA CHASE To: [place] Colonoscopy Pool; Sent: 08/27/2015 10:19:41 SKIN DIVER Show up: 08/27/2015 10:19:00 SKIN DIVER Subject: Reminder Msg Due Date/Time: 08/27/2015 10:19:00 SKIN DIVER Please Remember to: Pt Due for 48 y.o. Colonoscopy Screening. Letter Will be sent to pt. aug 2015 PATIENT: ( ) Call Patient ( ) Ask Patient to ( ) ( ) Call Relative ( ) Schedule Patient ( ) ( ) Call for [place] ( ) Follow up on Results ( ) Other: PROVIDER: ( ) Call Physician ( ) Call Pharmacist ( ) Call Lab ( ) Other: Special Instructions: Comments: Source: [facility] [email or web address] Document Id: [id number] Electronically signed by Conversion, [facility] Stripping Shovel Oiler [id number] at 02/02/2017 9:27 AM CDT Miscellaneous - Conversion, Historical Provider Ser - 08/24/2015 8:32 PM SKIN DIVER Coding Summary-Paper Based CODING DATE: 09/03/2015 FINAL [facility] STATUS: * Discharged to Home or [...] VERGARA Date Saved: 09/03/2015 09:43 am Source: [facility] [email or web address] Document Id: [id number] Miscellaneous - Nik Cisneros, R.N. - 08/24/2015 8:20 PM CST Valuables/Belongings Valuables/Belongings Entered On: 08/24/2015 20:21 SKIN DIVER Performed On: 08/24/2015 20:20 SKIN DIVER by NIK CISNEROS RN Valuables/Belongings Valuables/Belongings Grid Valuables with Patient Clothes, Patient Valuables : Coat, Pants, Shirt, Shoes, Undergarments Electronic Devices : Cell phone Jewelry : None Monetary Items : Wallet Personal Devices : None NIK CISNEROS RN - 08/24/2015 20:20 SKIN DIVER Home Medication Disposition : None brought in with patient NIK CISNEROS RN - 08/24/2015 20:20 SKIN DIVER Source: [facility] Document Id: [id number] SKIN DIVER!10 DIVER Miscellaneous - Nik Cisneros RAugustine - 08/24/2015 6:28 PM CST Facility Charge Ticket 2.0 11.0 DX Facility Charge Ticket 2.0 11.0 DX Entered On: 08/24/2015 20:22 SKIN DIVER Performed On: 08/24/2015 18:28 SKIN DIVER by NIK CISNEROS RN Facility Charge Ticket [...] Nursing Notes ED Primary Assessment,08/24/15 18:45,BOBBY MUNOZ SUPERVISOR PIGMENT MAKING Pain Assessment,08/24/15 20:20,NIK CISNEROS RN [facility] Nursing Assessment : Triage and 1-2 nursing assessments [place] Disposition : Discharge Disposition RTF : discharge [place] Total Points with Diagnosis Control : 7 [place]x Visit Level : 40130 Level 3 Treatments Prior to Arrival : None NIK CISNEROS RN - 08/24/2015 20:21 SKIN DIVER Source: [facility] [email or web address] Document Id: [id number] SKIN DIVER!19 DIVER documented in this encounter Plan of Treatment Not on filedocumented as of this encounter Procedures Procedure Name Priority Date/Time Associated Diagnosis Comme nts GLUCOSE POCT, B Routine 08/24/2015 6:59 PM Result s for this SKIN DIVER procedure are i n the results section. documented in this encounter Results (ABNORMAL) Glucose, POCT (08/24/2015 6:59 PM SKIN DIVER) athologist Signature Glucose, POCT, 183 (H) 70 - 139 POWERCHART B MGDL Comment: AnalyzedBy [id number] Alexander Rosales Performed at Med Surg [id number] [facility] [address] [place], [place] ??[address] Specimen Anatomical Collection Method Collection Time Receive d Time (Source) Location / / Volume Laterality Blood 08/24/2015 6:59 PM 5 6:59 SKIN DIVER PM SKIN DIVER Cierra Barker M.D. LAB POCT ORDERABLES-MANUAL Performing Organization Address City/State/ZIP Code Phon e Number POWERCHART documented in this encounter Visit Diagnoses Not on filedocumented in this encounter Additional Health Concerns Assessment Noted Time PHQ-9 Depression Total Score: 18 02/14/2013 9:53 AM CD T documented as of this encounter
--- OUTSIDE RECORDS SUMMARY | 2022-08-19 10:32 | XMS_ITS | Encounter Summary ---
:1960 Author Organization [facility] Address [address] [place] [address] Care Team Providers Name Role Phone Unavailable [...]
--- OUTSIDE RECORDS SUMMARY | 2022-08-19 10:32 | XMS_ITS | Encounter Summary ---
:1960 Author Organization [facility] Address [address] [place] [address] Care Team Providers Name Role Phone Unavailable Primary Care Provider Unavailable Encounter Details Date Type Department Care Team Description 08/01/2016 Hospital Encounter HX [facility] Cintia Bullock M.D. [address] [place] [phone] (Wo rk) Social History Tobacco Use [...] 182 cm (5' 11.65) 08/01/2016 1:56 PM NEON TUBE PUMPER Body Mass Index - - documented in [...] Cintia Bullock M.D. - 08/01/2016 3:51 PM NEON TUBE PUMPER Results Notification Document Contains Addenda Addendum by TIFFANY DEAN LPN on August 04, 2016 12:34:40 NEON TUBE PUMPER From: TIFFANY DEAN LPN ([facility] Nurse Bennett) To: CINTIA BULLOCK MD; Cc: CINTIA BULLOCK MD; Sent: 08/04/2016 12:34:40 NEON TUBE PUMPER Show up: 08/04/2016 12:34:00 NEON TUBE PUMPER Subject: RE: Results Notification Addendum by TIFFANY DEAN LPN on August 04, 2016 12:34:26 NEON TUBE PUMPER From: TIFFANY DEAN LPN ([facility] Nurse Guajardo) To: CINTIA BULLOCK MD; Cc: CINTIA BULLOCK MD; Sent: 08/04/2016 12:34:26 NEON TUBE PUMPER Show up: 08/04/2016 12:34:00 NEON TUBE PUMPER Subject: RE: Results Notification Addendum by TIFFANY DEAN LPN on August 04, 2016 12:34:26 NEON TUBE PUMPER From: TIFFANY DEAN LPN ([facility] Nurse Guajardo) To: CINTIA BULLOCK MD; Cc: CINTIA BULLOCK MD; Sent: 08/04/2016 12:34:26 NEON TUBE PUMPER Show up: 08/04/2016 12:34:00 NEON TUBE PUMPER Subject: RE: Results Notification Addendum by TIFFANY DEAN LPN on August 04, 2016 12:34:[address] Song, Spoke with pt.He is taking [...] RAMIREZ LPN on August 04, 2016 12:00:00 NEON TUBE PUMPER Tried calling pt at all the numbers listed on overview and the one listed with this encounter. No answer. I was able to leave a voice message on one of them and asked to call back for message. From: CINTIA BULLOCK MD To: [facility]/Referrals; [facility] Nurse [place]; Sent: 08/01/2016 15:51:12 NEON TUBE PUMPER Show up: 08/01/2016 15:49:00 NEON TUBE PUMPER Subject: Results Notification LM for patient to [...] Lvl 9.9 mg/dL (8.6 - 10.0) Source: [facility] POWERCHART Document Id: [id number] documented in this encounter Plan of Treatment Not on filedocumented as of this encounter Procedures Procedure Name Priority Date/Time Associated Diagnosis Comme nts BASIC METABOLIC Routine 08/01/2016 2:02 PM Result s for this PANEL, S/P NEON TUBE PUMPER procedure are i n the results section. documented in this encounter Results (ABNORMAL) BMP (Basic Metabolic Panel) (08/01/2016 2:02 PM NEON TUBE PUMPER) Analysis Performed At Patho logist Time Signature [...] MMOLL HXeGFR (MDRD) 44 (L) >=60 POWERCHART [id number] eGFR 53 (L) >=60 POWERCHART Black/ [id number] Thai Glucose 124 70 - 139 POWERCHART MGDL Specimen (Source) Anatomical Collection Method Collection Time Re ceived Time Location / / Volume Laterality Blood 08/01/2016 2:02 PM NEON TUBE PUMPER Cintia Copeland M.D. LAB BLOOD ADD-ON Performing Organization Address City/State/ZIP Code Phon e Number POWERCHART documented in this encounter Visit Diagnoses Not on filedocumented in this encounter Additional Health Concerns Assessment Noted Time PHQ-9 Depression Total Score: 18 02/14/2013 9:53 AM CD T documented as of this encounter
--- OUTSIDE RECORDS SUMMARY | 2022-08-19 10:32 | XMS_ITS | Encounter Summary ---
:1960 Author Organization [facility] Address [address] [place] [address] Care Team Providers Name Role Phone Unavailable Primary Care Provider Unavailable Encounter Details Date Type Department Care Team Description 09/30/2016 Hospital Encounter HX [facility] Kevin lindquist M.D. [address] [place] [phone] (Wo rk) Social History Tobacco Use Types Packs/Day Years Used Date Smoking Tobacco: Never Sex Assigned at Date Recorded Not on file documented as of this encounter Last Filed Vital Signs Vital Sign Reading Time Taken Comments Blood Pressure 150/66 09/30/2016 6:32 PM SUPPLY SPECIALIST Pulse 40 09/30/2016 6:32 PM SUPPLY SPECIALIST Temperature - - Respiratory Rate - - Oxygen Saturation - - Inhaled Oxygen Concentration - - Weight 86.4 kg (190 lb 7.6 oz) 09/30/2016 6:32 PM SUPPLY SPECIALIST Height 182.9 cm (6') 09/30/2016 6:32 PM SUPPLY SPECIALIST Body Mass Index 25.83 09/30/2016 6:32 PM SUPPLY SPECIALIST documented in this encounter Medications at Time [...] undergoing a panniculectomy on December 10 in [place]. He reports that with his last procedure, [...] No tobacco or alcohol. 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 SOCIAL HISTORY Date Time: 09/30/2016 18:32 [...] ECG; TITI WATTS MD, PhD 09/30/2016 19:25 SUPPLY SPECIALIST Electronically Signed By: KEVIN BULLOCK MD On: 10/05/2016 07:04 AM Source: MyFit Document Id: [id number] LY SPECIALIST documented in this encounter Miscellaneous Notes Telephone [...] 14:36:01 CDT From: KEVIN BULLOCK MD To: [facility] Nurse Guajardo; Sent: 02/11/2017 14:36:01 [...] 11, 2017 08:28:01 CDT From: ANGEL NGUYEN ([facility] Nurse [facility]) To: KEVIN BULLOCK MD; Sent: 02/11/2017 08:28:01 CDT Subject: FW: *Phone Message This pretty much says it all, do you want me to call him? I'm assuming that your response will be he needs an appointment to discuss which will be out several weeks at best..... From: KRISTA PAPPAS ([facility] Wire Frame Maker) To: [facility] Nurse Guajardo; Sent: 02/11/2017 00:30:28 [...] missed the appointment. Please call him at [phone]. Advice/Action: Source used: ( ) Verbalizes understanding [...] back cell phone number ( ) Source: [facility] POWERCHART Document Id: [id number] Telephone Encounter - Conversion, Historical Provider Ser - 10/04/2016 9:19 AM CST *Phone Message Document Contains Addenda Addendum by KEVIN BULLOCK MD on October 06, 2016 09:35:19 SUPPLY SPECIALIST From: KEVIN BULLOCK MD To: KEVIN BULLOCK MD; Sent: 10/06/2016 09:35:19 SUPPLY SPECIALIST Subject: RE: *Phone Message Attempted to call patient to discuss cardiology recommendations. Addendum by VINEET RAMIREZ LPN on October 04, 2016 12:32:38 SUPPLY SPECIALIST From: VINEET RAMIREZ LPN ([facility] Nurse [facility]) To: KEVIN BULLOCK MD; Sent: 10/04/2016 12:32:38 SUPPLY SPECIALIST Subject: FW: *Phone Message From: MARY FELDERDC Family Medicine Wire Frame Maker) To: [facility] Nurse Gu[facility]ardo; Sent: 10/04/2016 09:19:28 SUPPLY SPECIALIST Subject: *Phone Message Caller is: ( X [...] back cell phone number ( ) [facility] Document Id: [id number] Osbaldo - Angel Nguyen L.P.N. - 10/01/2016 7:38 AM CST Px Follow up questions From: ANGEL NGUYEN ([facility] Nurse [facility]) To: KEVIN BULLOCK MD; Sent: 10/01/2016 07:38:27 SUPPLY SPECIALIST Subject: Px Follow up questions Client called [...] avoid stretching out his gastric pouch. Source: [facility] Document Id: [id number] Electronically signed by Conversion, [facility] Heating Equipment Repairer [id number] at 02/17/2017 3:23 AM CDT Osbaldo - Kevin Bullock M.D. - 09/30/2016 7:32 PM SUPPLY SPECIALIST Ambulatory Patient Summary [address] [place] [id number] Visit Information Name: NOEMÍ LUNA [facility] Number: [id number] Current Date: 09/30/2016 19:32:28 [...] once a day kidney stones Routed to [facility] , cyanocobalamin (cyanocobalamin 1000 mcg/mL injectable solution) 1 Milliliter, Subcutaneous, once a month vitamin B12 deficiency Routed to [facility] , *ferrous sulfate (ferrous sulfate 325 mg (65 mg elemental iron) oral tablet) 1 Tablet(s), Oral, two times a day furosemide (Lasix 40 mg oral tablet) 1 Tablet(s), Oral, once a day as needed for edema Leg Swelling This is a CHANGE Routed to [facility] , lisinopril (lisinopril 10 mg oral tablet) 1 Tablet(s), Oral, once a day blood pressure Routed to [facility] , *multivitamin with minerals (Flintstones Complete [...] online form. Youll be asked for your [facility] number which you can find at the top of this document. Your Goals/Additional instructions: Source: [facility] POWERCHART Document Id: [id number] LY SPECIALIST Miscellaneous - Kevin Bullock M.D. - 09/30/2016 7:32 PM SUPPLY SPECIALIST Ambulatory Discharge Medication List [place] - [address] [place] [id number] Visit Information Name: NOEMÍ LUNA [facility] Number: [id number] Current Date: 09/30/2016 19:32:25 [...] once a day kidney stones Routed to [facility] , cyanocobalamin (cyanocobalamin 1000 mcg/mL injectable solution) 1 Milliliter, Subcutaneous, once a month vitamin B12 deficiency Routed to [facility] , *ferrous sulfate (ferrous sulfate 325 mg (65 mg elemental iron) oral tablet) 1 Tablet(s), Oral, two times a day furosemide (Lasix 40 mg oral tablet) 1 Tablet(s), Oral, once a day as needed for edema Leg Swelling This is a CHANGE Routed to [facility] , lisinopril (lisinopril 10 mg oral tablet) 1 Tablet(s), Oral, once a day blood pressure Routed to [facility] , *multivitamin with minerals (Flintstones Complete [...] MD Signed On:30-SEP-2016 19:32:14 Additional Information: Source: [facility] POWERCHART Document Id: [id number] LY SPECIALIST Miscellaneous - Angel Nguyen L.P.N. - 09/30/2016 7:17 PM CST Obstructive Sleep Apnea Obstructive Sleep Apnea Entered On: 09/30/2016 19:18 SUPPLY SPECIALIST Performed On: 09/30/2016 19:17 SUPPLY SPECIALIST by ANGEL NGUYEN CELESTE Screening Known Obstructive Sleep Apnea : No - NOT diagnosed with CELESTE CELESTE Score : No qualifying data available. CELESTE Results : No qualifying data available. ANGEL NGUYEN - 09/30/2016 19:17 SUPPLY SPECIALIST CELESTE Assessment Do you have high [...] : 8 ANGEL NGUYEN - 09/30/2016 19:17 SUPPLY SPECIALIST Source: [facility] POWERCHART Document Id: [id number] SUPPLY SPECIALIST!12 LY SPECIALIST Miscellaneous - Angel Nguyen, L.P.N. - 09/30/2016 6:32 PM CST Adult Firer Locomotive Intake/History Document Has Been Updated Adult Firer Locomotive Intake/History Entered On: 09/30/2016 18:40 SUPPLY SPECIALIST Performed On: 09/30/2016 18:32 SUPPLY SPECIALIST by ANGEL NGUYEN Intake Actual Weight : 86.4 kg(Converted to: 190 lb 8 oz) Weight Source : Standing scale Dosing Weight Clinic : 86.4 kg ANGEL NGUYEN - 09/30/2016 19:16 SUPPLY SPECIALIST Clinic BSA : 2.1 Body Mass Index : 25.83 kg/m2 ANGEL NGUYEN - 10/01/2016 7:38 SUPPLY SPECIALIST Chief Complaint : Here for preop exam. [...] Room air ANGEL NGUYEN - 09/30/2016 18:32 SUPPLY SPECIALIST Height : 182.88 cm(Converted to: 6 ft 0 inch(es), 72 inch(es)) ANGEL NGUYEN - 10/01/2016 7:38 SUPPLY SPECIALIST General Info Information Given By : Patient Languages : Hungarian Is Patient Female and 13-50 no hysterectomy : No ANGEL NGUYEN 09/30/2016 18:32 SUPPLY SPECIALIST Subjective Pain Symptoms : ANGEL Torres 09/30/2016 18:32 SUPPLY SPECIALIST Dependent Habits Exposure to Tobacco Smoke : Care provider denies smoking in home, Other: never Smoking Status : Never smoker Tobacco 2A : No Tobacco Use/Currently Using : No Tobacco Use/Last 30 Days : No Tobacco Use/Last 12 months : No Alcohol Use : No ANGEL NGUYEN 09/30/2016 18:32 SUPPLY SPECIALIST Caffeine Use Grid Caffeine Use : Current Type : Coffee, Soft drinks Frequency : Weekly Amount : soda- weekly; coffee- 1x/week ANGEL NGUYEN 09/30/2016 18:32 SUPPLY SPECIALIST Recreational Drug Use Grid Drug Use : None ANGEL NGUYEN 09/30/2016 18:32 SUPPLY SPECIALIST Source: [facility] POWERCHART Document Id: [id number] SUPPLY SPECIALIST!5 LY SPECIALIST Miscellaneous - Sorin Wagner RAugustine - 09/02/2016 8:27 AM CST FYI; Fired from pharmacy From: SORIN WAGNER RN To: KEVIN BULLOCK MD; Sent: 09/02/2016 08:27:21 SUPPLY SPECIALIST Subject: COLIN; Fired from pharmacy [facility] called and states that patient is no longer able to get his medications through their pharmacy. Patient has been notified. Source: [facility] POWERCHART Document Id: [id number] Electronically signed by Conversion, [facility] Heating Equipment Repairer [id number] at 02/17/2017 3:23 AM CDT documented in this encounter Plan of Treatment Not on filedocumented as of this encounter Procedures Procedure Name Priority Date/Time Associated Comments Diagnosis CBC WITHOUT Routine 09/30/2016 7:35 PM Results f or this DIFFERENTIAL, B SUPPLY SPECIALIST procedure ar e in the results section. HEMOGLOBIN A1C, B Routine 09/30/2016 7:35 PM Resu lts for this SUPPLY SPECIALIST procedure are i n the results section. BASIC METABOLIC Routine 09/30/2016 7:35 PM Result s for this PANEL, S/P SUPPLY SPECIALIST procedure are i n the results section. ECG Routine 09/30/2016 7:25 PM Results f or this SUPPLY SPECIALIST procedure are i n the results section. documented in this encounter Results (ABNORMAL) CBC without Differential (09/30/2016 7:35 PM SUPPLY SPECIALIST) Analysis Performed At Patho logist Time Signature Leukocytes 7.7 3.5 - 10.5 POWERCHART X109L Erythrocytes 3.93 (L) 4.32 - POWERCHART 5.72 H1794S Hemoglobin 12.5 (L) 13.5 - POWERCHART 17.5 GDL Hematocrit 36.8 (L) 38.8 - POWERCHART 50.0 MCV 93.6 81.2 - POWERCHART 95.1 FL HX RDW 13.1 11.8 - POWERCHART 15.6 Platelet Count 153 150 - 450 POWERCHART X109L Specimen (Source) Anatomical Collection Method Collection Time Re ceived Time Location / / Volume Laterality Blood 09/30/2016 7:35 PM SUPPLY SPECIALIST Kevin Copeland M.D. LAB BLOOD ADD-ON Performing Organization Address City/State/ZIP Code Phon e Number POWERCHART BMP (Basic Metabolic Panel) (09/30/2016 7:35 PM SUPPLY SPECIALIST) P athologist Signature Sodium, S 138 135 [...] POWERCHART MMOLL HXeGFR (MDRD) >60 >=60 POWERCHART [id number] eGFR >60 >=60 POWERCHART Black/ [id number] Dominican Glucose 117 70 - 139 POWERCHART MGDL Specimen (Source) Anatomical Collection Method Collection Time Re ceived Time Location / / Volume Laterality Blood 09/30/2016 7:35 PM SUPPLY SPECIALIST Kevin Copeland M.D. LAB BLOOD ADD-ON Performing Organization Address City/State/ZIP Code Phon e Number POWERCHART Hemoglobin A1c (09/30/2016 7:35 PM SUPPLY SPECIALIST) P athologist Signature Hemoglobin A1c, 5.1 <=5.6 A1C POWERCHART B Specimen (Source) Anatomical Collection Method Collection Time Re ceived Time Location / / Volume Laterality Blood 09/30/2016 7:35 PM SUPPLY SPECIALIST Kevin Copeland M.D. LAB BLOOD ADD-ON Performing Organization Address City/State/ZIP Code Phon e Number POWERCHART ECG 12 Lead (09/30/2016 7:25 PM SUPPLY SPECIALIST) Specimen (Source) Anatomical Collection Method Collection Time Re ceived Time Location / / Volume Laterality 09/30/2016 7:25 PM SUPPLY SPECIALIST [facility] - 09/30/2016 7:25 PM SUPPLY SPECIALIST Test Reason : PREOP Blood Pressure : [...] Confirmed By:TITI WATTS ?? Procedure Note Provider, Keley Gonzalez - 02/24/2017F ormatting of this note [...] Address City/State/ZIP Code Phon e Number [facility] [address] [place] [phone] documented in this encounter Visit Diagnoses Not on filedocumented in this encounter Additional Health Concerns Assessment Noted Time PHQ-9 Depression Total Score: 18 02/14/2013 9:53 AM CD T documented as of this encounter
--- OUTSIDE RECORDS SUMMARY | 2022-08-19 10:32 | XMS_ITS | Encounter Summary ---
:1960 Author Organization [facility] Address [address] [place] [address] Care Team Providers Name Role Phone Elsewhere, [...] 56 Y Birthdate: 1960 Sex: M Address: [address] [place] [address] [address] City: [place] [address] CONFIDENTIAL NOTE Service Date/Time: 16-Jan-2017 09:33 Provider: Dilcia Donaldson, MSN, MHA, RN Pager: [phone] Service: CVHREP Type/Desc: MIS Status: Fnl Revision #: 1 CHIEF COMPLAINT/PURPOSE OF VISIT Patient called Ellen Pham RN and became upset with her for asking [facility] number. Patient then was upset because RN asked for his full name. Nurse Maintenance Director Dilcia Donaldson called patient back and was able to obtain information from patient to inquire what specifically patient was concerned about. Patient refused the second time to give information needed for follow up. Nurse program project manager informedpatient without name and birthday no other information could be given. Patient then was able to giveneeded verifications. Patient informed procedure on Thursday for ablation. Patient would be admitted overnight and discharged Thursday late afternoon. Patient also informed if he lives greater than 30 minutes from [place] will need to stay in [place] until Thursday. Patient states can he fly to [facility] for father in laws . Per information obtained from client consultant can fly after Thursdaybut unable to lift greater than 5 pounds for 2 weeks. Patient hung up on nurse program project manager after information was given . Original: mgj Electronically Signed: 16-Jan-2017 09:47 by Tony Donaldson, MSN, CARL, RN Clinical Notes - [id number] Id: [id number] Status: Fnl Ellen Pham R.N. - 01/16/2017 9:07 AM CDT DEMOGRAPHIC INFORMATION Clinic Number: [id number] Patient Name: Laz Luna Age: 56 Y Birthdate: 1960 Sex: M Address: [address] [place] [address] City: [place] [address] CONFIDENTIAL NOTE Service Date/Time: 16-Jan-2017 09:07 Provider: Ellen Pham RN Pager: [phone] Service: CVHREP Type/Desc: MIS Status: Fnl Revision #: 2 CHIEF COMPLAINT/PURPOSE OF VISIT Left Message stating he had an emergency. This phone communication was initiated by a [facility] healthcare provider. The phone communication was with the patient. Phone number patient/caller is calling from or the number of the provider: [phone]. Follow-up phone number: Same as above. The patient's/caller's preferred language is Syriac. IMPRESSION/REPORT/PLAN Today I am covering for Alysia [...] back. Around 814, Janina Miranda, a CV Technician [employer] called and left a message for me [...] keep these appointments. I have let my gambling floor supervisor, Dilcia Donaldson, know about this phone call and she was going to try to follow up with him. RESPONSE TO EDUCATION /INFORMATION GIVEN. Patient/caller unable to teach back. TYPE OF PHONE CALL. Telephone follow-up. Original: news anchor Electronically Signed: 16-Jan-2017 09:26 by Argelia Pham RN Clinical Notes - [id number] Id: [id number] Status: Fnl documented in this encounter Plan of Treatment Not on filedocumented as of this encounter Visit Diagnoses Not on filedocumented in this encounter Additional Health Concerns Infection Onset Date Last Indicated Resolved Time COVID19 Pending 09/30/2021 09/30/2021 09/30/2021 11:06 AM PUMP ROOM OPERATOR COVID19 Pending 10/03/2021 10/03/2021 10/23/2021 6:10 AM PUMP ROOM OPERATOR Assessment Noted Time PHQ-9 Depression Total Score: 18 02/14/2013 9:53 AM CD T documented as of this encounter Care Teams Stage Rigger Relationship Specialty Start Date End Date Elsewhere, Pcp PCP - General Internal Medicine 06/21/22 documented as of this encounter
--- OUTSIDE RECORDS SUMMARY | 2022-08-19 10:32 | XMS_ITS | Encounter Summary ---
:1960 Author Organization [facility] Address [address] [place] [address] Care Team Providers Name Role Phone Unavailable Primary Care Provider Unavailable Encounter Details Date Type Department Care Team Description 01/19/2017 - Hospital Encounter HX RST [facility] 4B Jennifer Shaffer, 01/20/2017 M.D. [address] [place] [address] Social History Tobacco Use Types Packs/Day Years [...] Respiratory Rate 14 01/20/2017 11:00 Value from [facility] rtplus. AM CDT Oxygen Saturation - - Inhaled Oxygen - - Concentration Weight 86 kg (189 lb 9.5 01/19/2017 12:46 Vital sign result oz) PM CDT from [facility]. Height 183 cm (6' 0.05) 01/19/2017 12:46 Vital sign result PM CDT from [facility]. Body Mass Index 25.68 01/19/2017 [...] S 140 135 - [address] [facility] MMOL/L [facility] Potassium, S 4.4 3.6 - 5.[address] [facility] MMOL/L [facility] Chloride, S 102 98 - [address] [facility] MMOL/L [facility] HX Bicarbonate, 25 22 - [address] [facility] P/S MMOL/L [facility] Creatinine 1.0 0.8 - 1.[address] [facility] MG/DL [facility] eGFR >60 >[address] [facility] Non-Black/Afric ML/MIN/BSA LABORATORIES - an [place] [facility] eGFR-Black/Afri >60 >[address] [facility] can [place] ML/MIN/BSA LABORATORIES - [facility] BUN (Blood Urea 23 8 - [address] [facility] Nitrogen), S MG/DL [facility] Anion Gap 13 7 - 15 [facility] Glucose, S 95 70 - [address] [facility] MG/DL [facility] - [facility] Specimen Anatomical Collection Method Collection Time Receive d Time (Source) Location / / Volume Laterality 01/20/2017 6:01 AM 7 6:01 CDT AM CDT Maricel Reyes APRN, C.N.P., M.S.N. LAB BLOOD ADD-ON Performing Organization Address City/[facility]/ZIP Code Phon e Number [facility] LABORATORIES - [address] [place], [place] [address] [facility] Magnesium (01/20/2017 6:01 AM CDT) P athologist Signature Magnesium, S 2.1 1.7 - 2.[address] [facility] MG/DL [facility] Specimen Anatomical Collection Method Collection Time Receive d Time (Source) Location / / Volume Laterality 01/20/2017 6:01 AM 7 6:01 CDT AM CDT Maricel Reyes APRN, C.N.P., M.S.N. LAB BLOOD ADD-ON Performing Organization Address City/State/[facility] Code Phon e Number [facility] LABORATORIES - [address] [place] [phone] [facility] (ABNORMAL) CBC without Differential (01/20/2017 6:01 AM CDT) Patholo gist Method Time Signature Hemoglobin 11.5 (L) 13.5 - [facility] 17.5 G/DL [facility] Hematocrit 34.0 (L) 38.8 - [facility] 50.0 % [facility] RBC Distrib 15.0 11.8 - [facility] Width 15.6 % [facility] Platelet Count 131 (L) 150 - [address] [facility] X10(9)/L [facility] Leukocytes 7.2 3.5 - [facility] 10.5 LABORATORIES - X10(9)/L [facility] Erythrocytes 3.52 (L) 4.32 - [facility] 5.72 LABORATORIES - X10(12)/L [facility] MCV 96.6 (H) 81.2 - [facility] 95.1 FL [facility] Specimen Anatomical Collection Method Collection Time Receive d Time (Source) Location / / Volume Laterality 01/20/2017 6:01 AM 7 6:01 CDT AM CDT Maricel Reyes APRN, C.N.P., M.S.N. LAB BLOOD ADD-ON Performing Organization Address City/[facility]/ZIP Code Phon e Number [facility] LABORATORIES - [address] [place], [place] [address] [facility] ECG 12 Lead (01/20/2017 5:46 AM CDT) Specimen (Source) Anatomical Collection Method Collection Time Re ceived Time Location / / Volume Laterality 01/20/2017 5:46 AM CDT Narrative HISTORICAL [facility] CONVERSION - 8:43 AM CDT [id number] 05:46 VENTRICULAR RATE 57 Dual chamber electronic pacemaker Sinus rhythm When compared with ECG of 05-JAN-2017 16 :51, Significant changes have occurred [id number]^CARLOS MENDEZ^SHUKRI Procedure Note Shukri Barroso M.D. - 11/26/2017Formatt ing of this note might be different from the original. [id number] 05:46 VENTRICULAR RATE 57 Dual chamber electronic pacemaker Sinus rhythm When compared with ECG of 05-JAN-2017 16 :51, Significant changes have occurred [id number]^CARLOS MENDEZ^SHUKRI Jennifer Shaffer M.D. ECG ORDERABLES Performing Organization Address City/[facility]/ZIP Code Phon e Number HX RAYMUNDO CONVERSION HISTORICAL [facility]AG[facility] CONVERSION (ABNORMAL) ACT (Activated Clotting Time), POCT (01/19/2017 2:30 PM CDT) [facility] Method Time Signature Activated 177 (H) 84 - [address] [facility] Clotting Time, SEC LABORATORIES - POCT [facility] Specimen Anatomical Collection Method Collection Time Receive d Time (Source) Location / / Volume Laterality 01/19/2017 2:30 PM 7 2:30 CDT PM CDT Historical Provider LAB POCT ORDERABLES - DEVICE Performing Organization Address City/[facility]/ZIP [facility] Phon e Number [facility] LABORATORIES - [address] [place], [place] [address] [facility] (ABNORMAL) ACT (Activated Clotting Time), POCT (01/19/2017 2:09 PM CDT) [facility] tagga Method Time Signature Activated 238 (H) 84 - [address] [facility] Clotting Time, [facility] - POCT [facility] Specimen Anatomical Collection Method Collection Time Receive d Time (Source) Location / / Volume Laterality 01/19/2017 2:09 PM 7 2:09 CDT PM CDT Historical Provider LAB POCT ORDERABLES - DEVICE Performing Organization Address City/[facility] Code Phon e Number [facility] LABORATORIES - [address] [place] [address] [facility] (ABNORMAL) ACT (Activated Clotting Time), POCT (01/19/2017 12:48 PM CDT) [facility] gist Method Time Signature Activated 287 (H) 84 - [address] [facility] Clotting Time, [facility] - POCT [facility] Specimen Anatomical Collection Method Collection Time Receive d Time (Source) Location / / Volume Laterality 01/19/2017 12:48 01/19/2017 PM CDT 12:48 PM CDT Historical Provider LAB POCT ORDERABLES - DEVICE Performing Organization Address City/[facility] Code Phon e Number [facility] LABORATORIES - [address] [place], [place] [address] [facility] documented in this encounter Visit Diagnoses Not on filedocumented in this encounter Additional Health Concerns Assessment Noted Time PHQ-9 Depression Total Score: 18 02/14/2013 9:53 AM CD T documented as of this encounter
--- OUTSIDE RECORDS SUMMARY | 2022-08-19 10:32 | XMS_ITS | Encounter Summary ---
:1960 Author Organization [facility] Address [address] [place] [address] Care Team Providers Name Role Phone Unavailable Primary Care Provider Unavailable Encounter Details Date Type Department Care Team Description 07/13/2016 Hospital Encounter HX [facility] ED Alexandra Barker M.D. [address] [place] [address] (Wo rk) Social History Tobacco Use Types Packs/Day Years Used Date Smoking Tobacco: Never Assessed Sex Assigned at Date Recorded Not on file documented as of this encounter Last Filed Vital Signs Vital Sign Reading Time Taken Comments Blood Pressure 142/83 07/13/2016 7:58 PM EVENT SPECIALIST Pulse 37 07/13/2016 7:10 PM EVENT SPECIALIST Temperature - - Respiratory Rate 20 07/13/2016 7:58 PM EVENT SPECIALIST Oxygen Saturation - - Inhaled Oxygen Concentration - - Weight - - Height - - Body Mass Index - - documented in this encounter Discharge Summaries Lesli Sotomayor, R.N. - 07/13/2016 7:59 PM CST ED Depart Summary [facility] Emergency Department Clinical Discharge Summary PERSON INFORMATION Name NOEMÍ LUNA Age 56 Years 1960 12:00 AM Sex Male Language Zimbabwean PCP KEVIN KILGORE MD Marital Status Visit Id Visit Reason Rash; Wants someone to take a oicture of his rash Specialty Enc Type Emergency Med Service Emergency Medicine Referred by Track Group [facility] ED Discharge 07/13/2016 7:59 PM Tracking Id [id number] Checkout 07/13/2016 7:59 PM Checkin 07/13/2016 7:03 PM Acuity 4 -Less Urgent Dispo Type * Discharged to Home or Self Care Arrival 07/13/2016 7:03 PM Reg Status Complete LOS 000 00:56 Address: [address] [place] [address] [phone] Comment: PROVIDER INFORMATION Provider Role Provider Contact Time CIERRA BARKER MD ED Provider 07/13/16 19:07 LESLI SOTOMAYOR WAREHOUSE ORDER SELECTOR Nurse 07/13/16 19:15 DIAGNOSIS Rash Groin Comment: PATIENT EDUCATION INFORMATION Instructions: Self-Care for Skin Rashes Follow up: With: Address: When: KEVIN KILGORE [address] [place] [phone] Business (1) Within As Needed Comments: The photo of your rash will be sent to plastic surgeon Dr. Richard. Source: [facility] POWERCHART Document Id: [id number] T SPECIALIST Lesli Sotomayor, R.N. - 07/13/2016 7:59 PM CST ED Discharge Instructions [address] [address] Name: NOEMÍ LUNA Date of : 1960 12:00 AM Visit Date: 07/13/2016 7:03 PM [facility] Number: [id number] Address: [address] [place] [phone] Primary Care Provider: KEVIN KILGORE MD IMPORTANT: [facility] in [place] would like to thank you for allowing us to assist you with your healthcare needs. The following includes patient education materials and informationregarding your injury/illness. Diagnosis: Rash Groin Follow-Up Instructions: With: Address: When: KEVIN FERRER-[address] [address] [employer] (1) Within As Needed Comments: The photo [...] control itching of many rashes. ?? Using aacn-xwx-ulkfwzl hydrocortisone cream on small rashes may help reduce swelling and itching. Most ywjv-hzk-naptmvt antifungal medications can treat athletes foot and [...] resistant bacteria (MRSA) on your skin. ?? [phone] [facility], [address] [place] [address]. All rights reserved. This information is not [...] online form. Youll be asked for your [facility] number which you can find at the [...] Date Time Provider Signature Date Time Source: [facility] POWERCHART Document Id: [id number] T SPECIALIST documented in this encounter Medications at [...] ED Disposition Summary Entered On: 07/13/2016 19:58 EVENT SPECIALIST Performed On: 07/13/2016 19:58 EVENT SPECIALIST by LESLI SOTOMAYOR RN ED Disposition Summary Present in Room During Exam/Procedure : Alone Mode of Discharge : Ambulatory Transportation : Private vehicle Printed Discharge Instructions Given to Patient : Yes Patient Status at Discharge from ED : Improved LESLI SOTOMAYOR RN - 07/13/2016 19:58 EVENT SPECIALIST Source: [employer] Document Id: [id number] EVENT SPECIALIST!7 T SPECIALIST Lesli Sotomayor R.N. - 07/13/2016 7:58 PM CST ED Pain Assessment ED Pain Assessment Entered On: 07/13/2016 19:58 EVENT SPECIALIST Performed On: 07/13/2016 19:58 EVENT SPECIALIST by LESLI SOTOMAYOR RN Pain Assessment Pain Symptoms : No LESLI SOTOMAYOR RN - 07/13/2016 19:58 EVENT SPECIALIST Source: [employer] Document Id: [id number] EVENT SPECIALIST!3 T SPECIALIST Cierra Barker M.D. - 07/13/2016 7:41 PM CST Rash Document Contains Addenda Addendum by CIERRA BARKER MD on July 14, 2016 0:[address] Doyle sent an email stating that [...] Note : Chief Complaint Description 07/13/2016 19:10 EVENT SPECIALIST Chief Complaint Description Pt comes in to ER with c/o of a rash to right lowerabdomen and just want a picture taken of it for another Dr. . History of Present Illness States he is here to have his groin rash photographed, as suggested by his plastic surgeon, Dr. April Doyle, from [place]. The rash is red, weeping, but not [...] on 09/29/2012 at 52 years. Comments: 09/30/2012 EVENT SPECIALIST 15:06 STEVE COUCH APRN PLUMBING HARDWARE ASSEMBLER left Genital warts (078.19) Comments: 09/30/2013 EVENT SPECIALIST 11:47 ANOOP MESSER INTERPRETIVE NATURALIST onset unknown Tinea pedis* (110.4) Comments: 09/30/2013 EVENT SPECIALIST 11:47 ANOOP MESSER INTERPRETIVE NATURALIST onset unknown Tinea cruris. (110.3) Comments: 09/30/2013 EVENT SPECIALIST 11:47 ANOOP MESSER INTERPRETIVE NATURALIST onset unknown. Surgical history: Gastric bypass ([id number]) on 11/19/2014 at 54 Years. Cystoscopy ([id number]) on 12/26/2009 at 49 Years. Comments: 02/20/2010 08:36 - STEVE ANDREA CNP [facility] / normal PSA, TOTAL SCREENING ([id number]) on 12/26/2009 at 49 Years. Comments: 02/20/2010 08:38 - STEVE ANDREA CNP Done at [facility] / Result: 1.55 Discectomy ([id number]) on 02/19/1989 at 28 Years. Comments: 12/28/2009 09:38 - STEVE ANDREA PLUMBING HARDWARE ASSEMBLER lumbar L4-L5. Family history: Diabetes mellitus Mother [...] Examination Vital Signs: Vital Signs 07/13/2016 19:10 EVENT SPECIALIST Temperature Core 36.4 DegC LOW Peripheral Pulse Rate 37 /min <LLOW Respiratory Rate 18 /min SpO2 100 % Systolic Blood Pressure 144 mmHg HI Diastolic Blood Pressure 71 mmHg Mean Arterial Pressure 95 mmHg , SpO2 07/13/2016 19:10 EVENT SPECIALIST SpO2 100 % . General: Alert and [...] PM This document has images extracted. Source: [facility] [employer] Document Id: [id number]} T SPECIALIST Maann Ramírez, R.N. - 07/13/2016 7:12 PM CST ED Primary Assessment Document Has Been Updated ED Primary Assessment Entered On: 07/13/2016 19:13 EVENT SPECIALIST Performed On: 07/13/2016 19:12 EVENT SPECIALIST by MANAN RAMÍREZ RN Reason For Visit (As Of: 07/13/2016 19:13:41 EVENT SPECIALIST) Problems(Active) BPH without urinary obstruction (ICD-9-CM :600.00 ) Name of Problem: BPH without urinary obstruction; Recorder: STEVE ANDREA APRN, CNP; Confirmation: Confirmed ; Classification: Medical ; Code: 600.00 ; Contributor System: Tradyo ; Last Updated: 02/15/2010 10:00 CDT ; Life Cycle Date: 02/15/2010 ; Life Cycle Status: Active ; Responsible Provider: STEVE ANDREA APRN, CNP; Vocabulary: ICD-9-CM ; Comments: 09/30/2013 11:46 - ANOOP QUEVEDO INTERPRETIVE NATURALIST onset unknown DM II (or NOS), uncontrolled (ICD-9-CM :250.02 ) Name of Problem: DM II (or NOS), uncontrolled ; Onset Date: 12/28/2009 ; Recorder: STEVE ANDREA APRN, CNP; Confirmation: Confirmed ; Classification: Medical ; Code: 250.02 ; Contributor System: PowerChart ; Last Updated: 07/24/2011 10:45 EVENT SPECIALIST ; Life Cycle Date: 12/05/2010 ; [...] System: PowerChart ; Last Updated: 07/29/2014 7:02 EVENT SPECIALIST ; Life Cycle Status: Active ; Responsible Provider: KEVIN KILGORE MD; Vocabulary: ICD-9-CM Flutter Atrial NOS (ICD-9-CM :427.32 ) Name of Problem: Flutter Atrial NOS ; Recorder: JOSIE CASTANEDA LPN, RT; Confirmation: Confirmed ; Classification: Medical ; Code: 427.32 ; Contributor System: [employer] ; Last Updated: 01/04/2015 10:57 CDT ; Life Cycle Status: Active ; Vocabulary: ICD-9-CM Fracture Closed Radial head (ICD-9-CM :813.05 ) Name of Problem: Fracture Closed Radial head ; OnsetDate: 09/29/2012 ; Recorder: STEVE ANDREA APRN, CNP; Confirmation: Confirmed ; Classification: Medical ; Code: 813.05 ; Contributor System: PowerChart ; Last Updated: 09/30/2012 15:06 EVENT SPECIALIST ; Life Cycle Date: 09/30/2012 ; Life Cycle Status: Active ; Responsible Provider: STEVE ANDREA APRN, CNP; Vocabulary: ICD-9-CM ; Comments: 09/30/2012 15:06 - STEVE ANDREA APRN, CNP left Genital warts (ICD-9-CM :078.19 ) Name of Problem: Genital warts ; Recorder: MARILUZ FRAGA MD; Confirmation: Confirmed ; Classification: UPDATE NEEDED ; Code: 078.19 ; Contributor System: PowerChart; Last Updated: 11/05/2015 4:20 EVENT SPECIALIST ; Life Cycle Date: 02/11/2013 ; Life [...] Code: 695.89 ; Last Updated: 07/14/2012 14:36 EVENT SPECIALIST ; Life Cycle Status: Active ; [...] System: PowerChart ; Last Updated: 09/05/2010 9:56 EVENT SPECIALIST ; Life Cycle Date: 09/05/2010 ; [...] Medical ; Code: 110.3 ; Contributor System: [employer] ; Last Updated: 06/01/2013 9:06 CDT ; Life Cycle Date: 06/01/2013 ; Life Cycle Status: Active ; Responsible Provider: MARILUZ FRAGA MD; Vocabulary: ICD-9-CM ; Comments: 09/30/2013 11:47 Shea ANOOP QUEVEDO RLPN onset unknown Tinea pedis* (ICD-9-CM :110.4 ) Name of Problem: Tinea pedis* ; Recorder: MARILUZ FRAGA MD; Confirmation: Confirmed ; Classification: Medical ; Code: 110.4 ; Contributor System: [employer] ; Last Updated: 02/02/2014 8:24 CDT ; Life Cycle Date: 06/01/2013 ; Life Cycle Status: Active ; Responsible Provider: MARILUZ FRAGA MD; Vocabulary: ICD-9-CM ; Comments: 09/30/2013 11:47 Shea ANOOP QUEVEDO R INTERPRETIVE NATURALIST onset unknown Ulcer of skin NOS (ICD-9-CM :707.9 ) Name of Problem: Ulcer of skin NOS ; Recorder: HALEIGH SCHULTZ APRN, CNP; Confirmation: Confirmed ; Classification: UPDATE NEEDED ; Code: 707.9 ; Contributor System:PowerChart ; Last Updated: 09/18/2010 8:25 EVENT SPECIALIST ; Life Cycle Date: 09/18/2010 ; Life Cycle Status: Active ; Responsible Provider: HALEIGH SCHULTZ APRN, CNP; Vocabulary: ICD-9-CM ; Comments: 09/30/2013 11:47 Shea ANOOP QUEVEDO R INTERPRETIVE NATURALIST onset unknown Unspecified Adjustment Reaction (ICD-9-CM :309.9 ) Name of Problem: Unspecified Adjustment Reaction ; Onset Date: 05/05/2013 ; Confirmation: Confirmed ; Classification: Medical ; Code: 309.9 ; Contributor System: [facility]PL[facility]AD ; Last Updated: 12/03/2013 18:36 CDT ; Life Cycle Status: Active ; Vocabulary: ICD-9-CM ; Comments: - Unspecified adjustment reaction Urge Incontinence (ICD-9-CM :788.31 ) Name of Problem: Urge Incontinence ; Recorder: STEVE ANDREA CNP; Confirmation: Confirmed ; Classification: Medical ; Code: 788.31 ; Contributor System: [employer] ; Last Updated: 02/20/2010 8:39 CDT ; Life Cycle Date: 02/20/2010 ; Life Cycle Status: Active; Responsible Provider: STEVE ANDREA APRN, CNP; Vocabulary: ICD-9-CM ; Comments: 09/30/2013 11:46 - ANOOP QUEVEDO INTERPRETIVE NATURALIST onset unknown Diagnoses(Active) Rash Date: 07/13/2016 ; Diagnosis Type: Reason For Visit ; Confirmation: Complaint of ; Clinical Dx:Rash ; Classification: Medical ; Clinical Service: Emergency medicine ; Code: PNED ; Probability: 0 ; Diagnosis Code: [id number] Triage Chief Complaint Description : see triage Mode of Arrival ED : Private vehicle, Ambulatory Track : Medical Languages : Zimbabwean Treatments Prior to Arrival : None Is Patient Female and 13-50 no hysterectomy : No MANAN RAMÍREZ RN - 07/13/2016 19:12 EVENT SPECIALIST Pain Assessment Pain Symptoms : No MANAN RAMÍREZ RN - 07/13/2016 19:12 EVENT SPECIALIST Respiratory Airway : Patent Respirations : Unlabored Respiratory Pattern : Regular MANAN RAMÍREZ RN - 07/13/2016 19:12 EVENT SPECIALIST Cardiovascular Heart Rhythm : Regular Skin Color : Normal for ethnicity Skin Description : Dry Skin Temperature : Warm MANAN RAMÍREZ RN - 07/13/2016 19:12 EVENT SPECIALIST Neurological Last Well Time Known : Not applicable Level of Consciousness : Alert Orientation : Oriented x 3 Characteristics of Speech : Appropriate for age MANAN RAMÍREZ RN - 07/13/2016 19:12 EVENT SPECIALIST ED Psychosocial Affect/Behavior : Calm Domestic Abuse Concerns : None Behavioral Health Screen/Safety Assmt : No MANNA RAMÍREZ RN - 07/13/2016 19:12 EVENT SPECIALIST Gastrointestinal Nutrition ED : Adequate MANAN RAMÍREZ RN - 07/13/2016 19:12 EVENT SPECIALIST Musculoskeletal Fall Prevention Education Provided : MANAN RUIZ RN - 07/13/2016 19:12 EVENT SPECIALIST Social Habits Exposure to Tobacco Smoke : Care provider denies smoking in home, Other: never Smoking Status : Never smoker Tobacco 2A : No Tobacco Use/Currently Using : No Tobacco Use/Last 30 Days : No Tobacco Use/Last 12 months : No MANAN RAMÍREZ RN - 07/13/2016 19:12 EVENT SPECIALIST Alcohol Use Grid Alcohol Use : No MANAN RAMÍREZ RN - 07/13/2016 19:12 EVENT SPECIALIST Recreational Drug Use Grid Drug Use : None MANAN RAMÍREZ RN - 07/13/2016 19:12 EVENT SPECIALIST Source: [facility] POWERCHART Document Id: [id number] EVENT SPECIALIST!45 T SPECIALIST Manan Ramírez R.N. - 07/13/2016 7:10 PM CST ED Triage Assessment Document Has Been Updated ED Triage Assessment Entered On: 07/13/2016 19:12 EVENT SPECIALIST Performed On: 07/13/2016 19:10 EVENT SPECIALIST by MANAN RAMÍREZ RN Reason For Visit (As Of: 07/13/2016 19:12:45 EVENT SPECIALIST) Problems(Active) BPH without urinary obstruction (ICD-9-CM :600.00 ) Name of Problem: BPH without urinary obstruction; Recorder: STEVE ANDREA APRN, CNP; Confirmation: Confirmed ; Classification: Medical ; Code: 600.00 ; Contributor System: [employer] ; Last Updated: 02/15/2010 10:00 CDT ; [...] Medical ; Code: 250.02 ; Contributor System: [employer] ; Last Updated: 07/24/2011 10:45 EVENT SPECIALIST ; Life Cycle Date: 12/05/2010 ; [...] System: PowerChart ; Last Updated: 07/29/2014 7:02 EVENT SPECIALIST ; Life Cycle Status: Active ; [...] System: PowerChart ; Last Updated: 09/30/2012 15:06 EVENT SPECIALIST ; Life Cycle Date: 09/30/2012 ; Life Cycle Status: Active ; Responsible Provider: STEVE ANDREA APRN, CNP; Vocabulary: ICD-9-CM ; Comments: 09/30/2012 15:06 - STEVE ANDREA APRN, CNP left Genital warts (ICD-9-CM :078.19 ) Name of Problem: Genital warts ; Recorder: MARILUZ FRAGA MD; Confirmation: Confirmed ; Classification: UPDATE NEEDED ; Code: 078.19 ; Contributor System: Tr[employer]o; Last Updated: 11/05/2015 4:20 EVENT SPECIALIST ; Life Cycle Date: 02/11/2013 ; Life [...] Code: 695.89 ; Last Updated: 07/14/2012 14:36 EVENT SPECIALIST ; Life Cycle Status: Active ; [...] Obesity NOS ; Recorder: STEVE ANDREA APRN PLUMBING HARDWARE ASSEMBLER; Confirmation: Confirmed ; Classification: Medical ; Code: 278.00 ; Contributor System: PowerChart ; Last Updated: 09/05/2010 9:56 EVENT SPECIALIST ; Life Cycle Date: 09/05/2010 ; Life Cycle Status: Active ; Responsible Provider: STEVE ANDREA APRN PLUMBING HARDWARE ASSEMBLER; Vocabulary: ICD-9-CM ; Comments: 09/30/2013 11:ANOOP ISAAC [...] Medical ; Code: 110.3 ; Contributor System: [employer] ; Last Updated: 06/01/2013 9:06 CDT ; Life Cycle Date: 06/01/2013 ; Life Cycle Status: Active ; Responsible Provider: MARILUZ FRAGA MD; Vocabulary: ICD-9-CM ; Comments: 09/30/2013 11:ANOOP ISAAC RLJACK onset unknown Tinea pedis* (ICD-9-CM :110.4 ) Name of Problem: Tinea pedis* ; Recorder: MARILUZ FRAGA MD; Confirmation: Confirmed ; Classification: Medical ; Code: 110.4 ; Contributor System: Tradyo ; Last Updated: 02/02/2014 8:24 CDT ; Life Cycle Date: 06/01/2013 ; Life Cycle Status: Active ; Responsible Provider: MARILUZ FRAGA MD; Vocabulary: ICD-9-CM ; Comments: 09/30/2013 11:ANOOP ISAAC INTERPRETIVE NATURALIST onset unknown Ulcer of skin NOS (ICD-9-CM :707.9 ) Name of Problem: Ulcer of skin NOS ; Recorder: HALEIGH SCHULTZ APRN, CNP; Confirmation: Confirmed ; Classification: UPDATE NEEDED ; Code: 707.9 ; Contributor System:[employer] ; Last Updated: 09/18/2010 8:25 EVENT SPECIALIST ; Life Cycle Date: 09/18/2010 ; Life Cycle Status: Active ; Responsible Provider: HALEIGH SCHULTZ APRN, CNP; Vocabulary: ICD-9-CM ; Comments: 09/30/2013 11:ANOOP ISAAC INTERPRETIVE NATURALIST onset unknown Unspecified Adjustment Reaction (ICD-9-CM :309.9 ) Name of Problem: Unspecified Adjustment Reaction ; Onset Date: 05/05/2013 ; Confirmation: Confirmed ; Classification: Medical ; Code: 309.9 ; Contributor System: [facility] ; Last Updated: 12/03/2013 18:36 CDT ; Life Cycle Status: Active ; Vocabulary: ICD-9-CM ; Comments: - Unspecified adjustment reaction Urge Incontinence (ICD-9-CM :788.31 ) Name of Problem: Urge Incontinence ; Recorder: STEVE ANDREA CNP; Confirmation: Confirmed ; Classification: Medical ; Code: 788.31 ; Contributor System: Tr[employer]o ; Last Updated: 02/20/2010 8:39 CDT ; [...] PNED ; Probability: 0 ; Diagnosis Code: [id number] Triage Chief Complaint Description : Pt comes in to ER with c/o of a rash to right lower abdomen and just want a picture taken of it for another Dr. Information Given By : Patient Present in Room During Exam/Procedure : Alone Mode of Arrival ED : Private vehicle, Ambulatory Track : Medical Languages : Zimbabwean Vital Signs Assessed : Yes Treatments Prior to Arrival : None Is Patient Female and 13-50 no hysterectomy : No MANAN RAMÍREZ RN - 07/13/2016 19:10 EVENT SPECIALIST Vital Signs Temperature Core : 36.4 DegC(Converted to: 97.5 DegF) (LOW) Peripheral Pulse Rate : 37 /min (<LLOW) Respiratory Rate : 18 /min Systolic Blood Pressure : 144 mmHg (HI) Diastolic Blood Pressure : 71 mmHg NIBP Mean : 95 mmHg SpO2 : 100 % MANAN RAMÍREZ RN - 07/13/2016 19:10 EVENT SPECIALIST Pain Assessment Pain Symptoms : No MANAN RAMÍREZ RN - 07/13/2016 19:10 EVENT SPECIALIST Comfort Measures Comfort Measures Grid Rest : Yes MANAN RAMÍREZ RN - 07/13/2016 19:10 EVENT SPECIALIST ED Physician Notification Time ED Physician Notification Time : 07/13/2016 19:12 EVENT SPECIALIST MANAN RAMÍREZ RN - 07/13/2016 19:10 EVENT SPECIALIST ERIN ERIN Level 1 : No ERIN Level 2 : No ERIN Level 3 : One MANAN RAMÍREZ RN - 07/13/2016 19:10 EVENT SPECIALIST DCP GENERIC CODE Tracking Acuity : 4 -Less Urgent Tracking Group : [facility] ED MANAN RAMÍREZ RN - 07/13/2016 19:10 EVENT SPECIALIST Allergy (As Of: 07/13/2016 19:12:45 EVENT SPECIALIST) Allergies (Active) Cipro Estimated Onset Date: Unspecified ; Created By: STEVE ANDREA APRN, CNP; Reaction Status: Active ; Category: Drug ; Substance: Cipro ; Type: Allergy ; Updated By: STEVE ANDREA APRN, CNP; Reviewed Date: 07/13/2016 19:12 EVENT SPECIALIST Influenza Virus Vaccine Estimated Onset Date: Unspecified ; Reactions: diarrhea ; Created By: STEVE ANDREA APRN, CNP; Reaction Status: Active ; Category: Drug ; Substance: Influenza Virus Vaccine ; Type: Intolerance ; Updated By: STEVE ANDREA APRN, CNP; Reviewed Date: 07/13/2016 19:12 EVENT SPECIALIST Immunizations Immunizations Current : Yes MANAN RAMÍREZ RN - 07/13/2016 19:10 EVENT SPECIALIST Source: [facility] [employer] Document Id: [id number] EVENT SPECIALIST!35 T SPECIALIST documented in this encounter Miscellaneous Notes Miscellaneous - Conversion, Historical Provider Ser - 07/13/2016 7:59 PM EVENT SPECIALIST Coding Summary-Paper Based CODING DATE: 07/19/2016 FINAL [place] [facility] STATUS: * Discharged to Home or Self [...] MARTÍNEZ Date Saved: 07/19/2016 06:33 am Source: [facility] [employer] Document Id: [id number] Miscellaneous - Lesli Sotomayor R.N. - 07/13/2016 7:58 PM CST Valuables/Belongings Valuables/Belongings Entered On: 07/13/2016 19:58 EVENT SPECIALIST Performed On: 07/13/2016 19:58 EVENT SPECIALIST by LESLI SOTOMAYOR RN Valuables/Jd Home Medication Disposition : None brought in with patient LESLI SOTOMAYOR RN - 07/13/2016 19:58 EVENT SPECIALIST Source: [facility] [employer] Document Id: [id number] EVENT SPECIALIST!3 T SPECIALIST Miscellaneous - Lesli Sotomayor R.N. - 07/13/2016 7:03 PM CST Facility Charge Ticket 2.0 11.0 DX Facility Charge Ticket 2.0 11.0 DX Entered On: 07/13/2016 19:59 EVENT SPECIALIST Performed On: 07/13/2016 19:03 EVENT SPECIALIST by LESLI SOTOMAYOR RN Facility Charge Ticket [...] Control : 4 Lynx Visit Level : 88544 Level 2 Treatments Prior to Arrival : None LESLI SOTOMAYOR RN - 07/13/2016 19:58 EVENT SPECIALIST Source: [facility] POWERCHART Document Id: [id number] EVENT SPECIALIST!17 T SPECIALIST documented in this encounter Plan of Treatment Not on filedocumented as of this encounter Visit Diagnoses Not on filedocumented in this encounter Additional Health Concerns Assessment Noted Time PHQ-9 Depression Total Score: 18 02/14/2013 9:53 AM CD T documented as of this encounter
--- OUTSIDE RECORDS SUMMARY | 2022-08-19 10:32 | XMS_ITS | Encounter Summary ---
:1960 Author Organization [facility] Address [address] [place] [address] Care Team Providers Name Role Phone Unavailable Primary Care Provider Unavailable Encounter Details Date Type Department Care Team Description 01/05/2017 Hospital Encounter HX [facility] Angeline ZABALA Cha, ei, M.D. [address] [place], [place] [phone] (Wo rk) Social History Tobacco Use Types [...] Summary-Paper Based CODING DATE: 01/09/2017 FINAL CA [facility] STATUS: * Discharged to Home [...] HICKMAN Date Saved: 01/09/2017 01:03 pm [facility] Document Id: [id number] documented in this encounter Plan of Treatment Not on filedocumented as of this encounter Visit Diagnoses Not on filedocumented in this encounter Additional Health Concerns Assessment Noted Time PHQ-9 Depression Total Score: 18 02/14/2013 9:53 AM CD T documented as of this encounter
--- OUTSIDE RECORDS SUMMARY | 2022-08-19 10:32 | XMS_ITS | Encounter Summary ---
:1960 Author Organization [facility] Address [address] [place] [address] Care Team Providers Name Role Phone Unavailable Primary Care Provider Unavailable Encounter Details Date Type Department Care Team Description 08/04/2015 Hospital Encounter HX [facility] Cintia Cbob M.D. 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 documented in this encounter Results (ABNORMAL) Hemoglobin (08/04/2015 10:45 AM LOG STACKER OPERATOR) athologist Signature Hemoglobin 12.4 (L) 13.5 - 17.5 POWERCHART GDL Specimen (Source) Anatomical Collection Method Collection Time Re ceived Time Location / / Volume Laterality Blood 08/04/2015 10:45 AM LOG STACKER OPERATOR Cintia Copeland M.D. LAB BLOOD ADD-ON Performing Organization Address City/State/ZIP Code Phon e Number POWERCHART documented in this encounter Visit Diagnoses Not on filedocumented in this encounter Additional Health Concerns Assessment Noted Time PHQ-9 Depression Total Score: 18 02/14/2013 9:53 AM CD T documented as of this encounter
--- OUTSIDE RECORDS SUMMARY | 2022-08-19 10:32 | XMS_ITS | Encounter Summary ---
:1960 Author Organization [facility] Address [address] [place] [address] Care Team Providers Name Role Phone Unavailable Primary Care Provider Unavailable Encounter Details Date Type Department Care Team Description 01/05/2017 Hospital Encounter HX [facility] Yariel Shaffer i, M.D. [address] [place], [place] [phone] (Wo rk) Social History Tobacco Use Types [...] answer From: DAVONTE PRASAD ( Family Medicine Single Pointed Operator) To: ART Family Medicine Nurse Bennett; Sent: 04/20/2017 10:00:59 CDT Subject: *Phone Message Caller is: ( x ) Patient ( ) Mother ( ) Father ( ) Spouse ( ) Daughter ( ) Son ( ) Pharmacy ( ) Other: Physician: Cintia Cobb Patient MRN #: Reason for Call: Patient would like to talk /complain about several issues. Please call to discuss [phone]. Patient also left a VM- he wanted [...] Source: [facility] POWERCHART Document Id: [id number] documented in this encounter Plan of Treatment [...] Erythrocytes 3.59 (L) 4.32 - POWERCHART 5.72 [id number] Hemoglobin 11.7 (L) 13.5 - POWERCHART 17.5 [...] Code Phon e Number POWERCHART Thyroid Function Cherry (01/05/2017 5:38 PM CDT) P athologist Signature TSH, Sensitive 0.6 0.3 - 4.2 POWERCHART MIUL Comment: Test Performed by: [address] [address] Specimen (Source) Anatomical Collection Method Collection Time Re ceived Time Location / / Volume Laterality Blood 01/05/2017 5:38 PM CDT Jennifer Shaffer M.D. LAB BLOOD ADD-ON Performing Organization Address City/[facility]/ZIP Code Phon e Number POWERCHART Sodium (01/05/2017 5:38 PM CDT) athologist Signature Sodium, S 142 135 - 145 POWERCHART MMOLL Specimen (Source) Anatomical Collection Method Collection Time Re ceived Time Location / / Volume Laterality Blood 01/05/2017 5:38 PM CDT Jennifer Shaffer M.D. LAB BLOOD ADD-ON Performing Organization Address City/[facility]/ZIP Code Phon e Number POWERCHART Potassium [...] 1.35 MGDL HXeGFR (MDRD) >60 >=60 POWERCHART [id number] eGFR >60 >=60 POWERCHART Black/ [id number] [place] Specimen (Source) Anatomical Collection Method Collection Time [...]
--- OUTSIDE RECORDS SUMMARY | 2022-08-19 10:32 | XMS_ITS | Encounter Summary ---
:1960 Author Organization [facility] Address [address] [place] [address] Care Team Providers Name Role Phone Unavailable Primary Care Provider Unavailable Encounter Details Date Type Department Care Team Description 04/07/2016 Hospital Encounter HX [facility] Angélica Jolley M.D. [address] [place], [place] [phone] (Wo rk) Social History [...] Erythrocytes 3.53 (L) 4.32 - POWERCHART 5.72 [id number] Hemoglobin 11.4 (L) 13.5 - POWERCHART 17.5 [...] esting for FH and FDB [facility]: FH/ADH Genetic Reflex Luu [...] at or the on-line test catalog at [facility] for information about how to order these [...] (04/07/2016 6:05 PM CDT) [facility] Signature Creatinine 1.55 (H) 0.60 - POWERCHART 1.30 MGDL HXeGFR (MDRD) 46 (L) >=60 POWERCHART [id number] eGFR 56 (L) >=60 POWERCHART Black/ [id number] Citizen Of [place] Specimen (Source) Anatomical Collection Method Collection Time Re ceived Time Location / / Volume Laterality Blood 04/07/2016 6:05 PM CDT Renetta Jolley M.D. LAB BLOOD ADD-ON Performing Organization Address City/[facility]/ZIP Code Phon e Number POWERCHART Ferritin (04/07/2016 6:05 PM CDT) athologist Signature Ferritin, S 102 24 - 336 POWERCHART MCGL Comment: Test Performed by: [facility] [place] [address] Barrel Waterer: Rene Gomez II, M.D., Ph.D. Specimen (Source) [...] Address City/[facility]/ZIP Code Phon e Number POWERCHART 25-Hydroxyvitamin [...] within this r vivienne. Test Performed by: [address] [address] Barrel Waterer: Rene Gomez II, M.D., Ph.D. Specimen (Source) [...]
--- OUTSIDE RECORDS SUMMARY | 2022-08-19 10:32 | XMS_ITS | Encounter Summary ---
:1960 Author Organization [facility] Address [address] [place] [address] Care Team Providers Name Role Phone Unavailable [...]
--- OUTSIDE RECORDS SUMMARY | 2022-08-19 10:32 | XMS_ITS | Encounter Summary ---
:1960 Author Organization [facility] Address [address] [place] [address] Care Team Providers Name Role Phone Unavailable Primary Care Provider Unavailable Encounter Details Date Type Department Care Team Description 05/21/2015 Hospital Encounter HX [facility] Cintia Cobb M.D. [address] [place] [phone] (Wo rk) Social History Tobacco Use [...] ABBOTT RN on 27 July 2015 07:52:20 DATA TRANSCRIBER returned request back to pharmacy to let them know pt can't switch Addendum by CINTIA KILGORE MD on 27 July 2015 07:33:59 DATA TRANSCRIBER From: CINTIA KILGORE MD To: FERNY Alexander for Readmission; Sent: 07/27/2015 07:33:59 DATA TRANSCRIBER Subject: RE: B12 He needs to stay on shots since he has had gastric bypass surgery. Pills are not appropriate for himbecause he no longer has the portion of the stomach that absorbs the Vit B12. ThanksCintia From: SHIRLENE ABBOTT RN (FERNY Risk for Readmission) To: CINTIA KILGORE MD; SHIRLENE ABBOTT RN; Sent: 07/26/2015 14:46:45 DATA TRANSCRIBER Subject: B12 On hold pending signature Discontinue:cyanocobalamin (cyanocobalamin 1000 mcg/mL injectable solution) 1 mL Subcut. Monthly vitamin B12 deficiency Qty: 4 mL Refills: 3 Substitutions Allowed Route To Pharmacy - [id number] Pt would like to switch to oral pills from injection if appropriate for him. Unsure how that switches over so did not propose. [facility] pharm request Source: [facility] POWERCHART Document Id: [id number] Electronically signed by Conversion, [facility] Litigation Partner [id number] at 02/02/2017 7:04 PM CDT Miscellaneous - [...] blood sugar readings? A1C 5.5 on 03-24-15. [phone] or [facility] [phone] Source: [employer] Document Id: [id number] Miscellaneous - Cintia Cobb M.D. - 05/22/2015 6:39 AM CDT Results Notification From: CINTIA KILGORE MD To: [facility] Deputy Director Of Finance/Referrals; Sent: 05/22/2015 06:39:10 CDT Show up: 05/22/2015 06:39:00 CDT Subject: Results Notification Please let patient know that his hemoglobin is 9, so it continues to go up. He should continue his iron. We should recheck it in 2 weeks. ThanksCintia Results: Date Result Name Ind Value Ref Range 05/21/2015 18:36 Hgb (L) 9.0 g/dL (13.5 - 17.5) Source: [employer] Document Id: [id number] documented in this encounter Plan of Treatment [...]
--- OUTSIDE RECORDS SUMMARY | 2022-08-19 10:32 | XMS_ITS | Encounter Summary ---
:1960 Author Organization [facility] Address [address] [place] [address] Care Team Providers Name Role Phone Unavailable [...]
--- OUTSIDE RECORDS SUMMARY | 2022-08-19 10:32 | XMS_ITS | Encounter Summary ---
:1960 Author Organization [facility] Address [address] [place] [address] Care Team Providers Name Role Phone Unavailable Primary Care Provider Unavailable Encounter Details Date Type Department Care Team Description 08/04/2015 Hospital Encounter HX [facility] Piero Swann M.D. [address] [place] [phone] (Wo rk) Social History Tobacco Use Types Packs/Day Years Used Date Smoking Tobacco: Never Assessed Sex Assigned at Date Recorded Not on file documented as of this encounter Last Filed Vital Signs Vital Sign Reading Time Taken Comments Blood Pressure 115/60 08/04/2015 11:59 AM PUBLIC OPINION SURVEY TAKER Pulse 42 08/04/2015 11:59 AM PUBLIC OPINION SURVEY TAKER Temperature - - Respiratory Rate 16 08/04/2015 11:59 AM PUBLIC OPINION SURVEY TAKER Oxygen Saturation - - Inhaled Oxygen Concentration - - Weight - - Height 185 cm (6' 0.84) 08/04/2015 11:59 AM PUBLIC OPINION SURVEY TAKER Body Mass Index - - documented in [...] CST *General Message From: JUDITH PATE LPN (MA Family Medicine Nurse Bennett) To: JUDITH PATE LPN; Sent: 08/21/2015 09:44:40 PUBLIC OPINION SURVEY TAKER Subject: *General Message pt called and left message on voicemail stating he is sick, coughing, sore throat that hurts so bad. x3days per pt request to leave a message left a message and informed pt that he will need to make and appt or call and speak to an Expert RN nurse line. Source: [facility] POWERCHART Document Id: [id number] Electronically signed by Dayami [facility] Clock And Watch Hands Painter [id number] at 02/02/2017 6:21 AM CDT Miscellaneous - Shirlene Abbott R.N. - 08/13/2015 8:38 AM CST COLIN Document Contains Addenda Addendum by VINEET RAMIREZ LPN on 16 August 2015 07:24:01 PUBLIC OPINION SURVEY TAKER From: VINEET RAMIREZ LPN To: SHIRLENE ABBOTT RN; Cc: KEVIN KILGORE MD; Sent: 08/16/2015 07:24:01 PUBLIC OPINION SURVEY TAKER Subject: FW: COLIN pt left detailed message that trell Donaldson called and talked to his and told her about lab workthat was done. From part of his message it was Sorin who called and gave her the info below. He states that it is best to call her cell # of [phone] and leave a message as she can't [...] RAMIREZ LPN on 16 August 2015 07:16:50 PUBLIC OPINION SURVEY TAKER From: VINEET RAMIREZ LPN To: VINEET RAMIREZ LPN; Sent: 08/16/2015 07:16:50 PUBLIC OPINION SURVEY TAKER Subject: FW: FYI Addendum by SORIN VARGAS RN on 15 August 2015 09:21:07 PUBLIC OPINION SURVEY TAKER updated with message below, verbalized understanding and able to repeat back. Addendum by KEVIN KILGORE MD on 15 August 2015 07:59:43 PUBLIC OPINION SURVEY TAKER From: KEVIN KILGORE MD To: MA Family Medicine Nurse Bennett; Sent: 08/15/2015 07:59:43 PUBLIC OPINION SURVEY TAKER Subject: call patient Please let patient know that I have reviewed the blood sugars he dropped off. They overall look good. I would still prefer that he check his blood sugars at least 2 times per week. His A1c did go up a little to 6.0%. In regards to his weight fluctuations, I think he needs to follow up with the dietitian in [place] as we had discussed at his last [...] To: KEVIN KILGORE MD; Sent: 08/13/2015 08:38:46 PUBLIC OPINION SURVEY TAKER Subject: FYI Pt called to ask if he could stop taking his B12 shots, says he hasn't done them. Advised again as Id[facility] in [facility] that he still needs to take [...] would not be answering his phone. Source: [employer] Document Id: [id number] Electronically signed by Conversion, [place]. com. cn Clock And Watch Hands Painter [id number] at 02/02/2017 6:21 AM CDT Miscellaneous - Shirlene Abbtot R.N. - 08/09/2015 3:45 PM CST *General Message From: SHIRLENE ABBOTT RN Sent: 08/09/2015 15:45:14 PUBLIC OPINION SURVEY TAKER Subject: *General Message Pt called for A1C, result given Source: [employer] Document Id: [id number] Electronically signed by Conversion, [facility] Clock And Watch Hands Painter [id number] at 02/02/2017 6:21 AM CDT Lulycellwalter - Anoop Mujica L.PAugustine - 08/04/2015 12:06 PM CST *General Message From: ANOOP MUJICA LPN (MA Family Medicine Nurse Bennett) To: KEVIN KILGORE MD; Sent: 08/04/2015 12:06:33 PUBLIC OPINION SURVEY TAKER Subject: *General Message Patient came in on [...] on any further orders Thanks Anoop Source: [employer] Document Id: [id number] Electronically signed by Conversion, [facility] Clock And Watch Hands Painter [id number] at 02/02/2017 6:21 AM CDT Osbaldo - Anoop Mujica L.PPiliNPili - 08/04/2015 11:59 AM CST Ambulatory Vitals Height Weight Ambulatory Vitals Height Weight Entered On: 08/04/2015 12:03 PUBLIC OPINION SURVEY TAKER Performed On: 08/04/2015 11:59 PUBLIC OPINION SURVEY TAKER by ANOOP MUJICA LPN Vitals/Ht/Wt Peripheral Pulse [...] inch(es)) ANOOP MUJICA LPN - 08/04/2015 11:59 PUBLIC OPINION SURVEY TAKER Source: [facility] POWERCHART Document Id: [id number] PUBLIC OPINION SURVEY TAKER!13 IC OPINION SURVEY TAKER documented in this encounter Plan of Treatment Not on filedocumented as of this encounter Procedures Procedure Name Priority Date/Time Associated Diagnosis Comme nts HEMOGLOBIN A1C, B Routine 08/04/2015 10:45 AM Res ults for this PUBLIC OPINION SURVEY TAKER procedure are i n the results section. documented in this encounter Results (ABNORMAL) Hemoglobin A1c (08/04/2015 10:45 AM PUBLIC OPINION SURVEY TAKER) P athologist Signature Hemoglobin A1c, 6.0 (H) <=5.6 A1C POWERCHART B Specimen (Source) Anatomical Collection Method Collection Time Re ceived Time Location / / Volume Laterality Blood 08/04/2015 10:45 AM PUBLIC OPINION SURVEY TAKER Kevin Copeland M.D. LAB BLOOD ADD-ON Performing Organization Address City/State/ZIP Code Phon e Number POWERCHART documented in this encounter Visit Diagnoses Not on filedocumented in this encounter Additional Health Concerns Assessment Noted Time PHQ-9 Depression Total Score: 18 02/14/2013 9:53 AM CD T documented as of this encounter
--- OUTSIDE RECORDS SUMMARY | 2022-08-19 10:32 | XMS_ITS | Encounter Summary ---
:1960 Author Organization [facility] Address [address] [place] [address] Care Team Providers Name Role Phone Unavailable Primary Care Provider Unavailable Encounter Details Date Type Department Care Team Description 09/21/2015 Hospital Encounter HX [facility] Cintia lindquist M.D. [address] [place] [phone] (Wo rk) Social History Tobacco Use [...] 180 cm (5' 10.87) 09/21/2015 2:13 PM CLOTH NAPPING SUPERVISOR Body Mass Index - - documented [...] about appt but doesn't think he will continuous pickling line pickler compression stockings. Addendum by SHIRLENE ABBOTT RN on January 22, 2016 13:44:29 CDT Tried to call pt back to give below info - [phone] Addendum by CINTIA KILGORE MD on January [...] will call back to make appt. Source: [facility] POWERCHART Document Id: [id number] Miscellaneous - Xochitl Hackett, L.P.N. - 10/30/2015 [...] XOCHITL HACKETT on November 12, 2015 16:00:40 CLOTH NAPPING SUPERVISOR No answer at home number - will try again tomorrow. Addendum by XOCHITL HACKETT on 05 November 2015 09:14:12 CLOTH NAPPING SUPERVISOR Message left with client's to him return our call at his convenience. Addendum by XOCHITL HACKETT on 31 October 2015 08:44:50 CLOTH NAPPING SUPERVISOR No answer at above number, will try again later. Addendum by CINTIA KILGORE MD on 30 October 2015 15:58:55 CLOTH NAPPING SUPERVISOR From: CINTIA KILGORE MD To: XOCHITL HACKETT; Sent: 10/30/2015 15:58:55 CLOTH NAPPING SUPERVISOR Subject: RE: *General Message He does take [...] To: CINTIA KILGORE MD; Sent: 10/30/2015 10:36:56 CLOTH NAPPING SUPERVISOR Subject: *General Message Client left a voice [...] whenI spoke with you. Thanks, Nicki Source: [facility] [employer] Document Id: [id number] Miscellaneous - Shirlene Abbott R.N. - 10/22/2015 12:24 PM CST diabetic supplies From: SHIRLENE ABBOTT RN Sent: 10/22/2015 12:24:17 CLOTH NAPPING SUPERVISOR Subject: diabetic supplies Submitted: Order:Rx Lancets Supply MISC Once 100 count to use 2x/wk or as directed.Please include Lancing device. Accu chek, Jolie Plus IDDM 250.00 Qty: 1 box(es) Refills: 1 Substitutions [id number] Signed by SHIRLENE ABBOTT RN 10/22/2015 12:21:11 Submitted: Order:Rx Test Strips Supply MISC Once 50 count Accu check Jolie Plus Use 2x/week or as directed IDDMII E11.9 Qty: 50 each Refills: 2 Substitutions Allowed Route To [facility]acy - [id number] Signed by SHIRLENE ABBOTT RN 10/22/2015 12:20:02 Insurance wants to cover different brand on equipment, sent scripts: Source: [facility] [employer] Document Id: [id number] Miscellaneous - Conversion, Historical Provider Ser - 10/11/2015 12:00 AM CLOTH NAPPING SUPERVISOR Quality Measures Quality Measures Entered On: 11/12/2015 11:53 CLOTH NAPPING SUPERVISOR Performed On: 10/11/2015 0:00 CLOTH NAPPING SUPERVISOR by NATHALIE BUTLER Diabetes Date of Last Eye Exam : 10/11/2015 CLOTH NAPPING SUPERVISOR NATHALIE BUTLER - 11/12/2015 11:53 CLOTH NAPPING SUPERVISOR Source: [facility] [employer] Document Id: [id number] CLOTH NAPPING SUPERVISOR!3 Miscellaneous - Cintia Cobb M.D. - 09/26/2015 6:49 AM CLOTH NAPPING SUPERVISOR Normal Results Letter 26 September 2015 ED [place] [address] [facility] [phone] Dear LAZ LUNA, Please review the enclosed [...] Lower Extremity Left 09/21/2015 Sincerely, CINTIA KILGORE [address] [address] Electronic Signature Electronically Signed By: CINTIA KILGORE MD On: 26 September 2015 This document has images extracted. Source: [employer] Document Id: [id number] Miscellaneous - Conversion, Historical Provider Ser - 09/21/2015 11:59 PM CLOTH NAPPING SUPERVISOR Coding Summary-Paper Based CODING DATE: 09/24/2015 FINAL [facility] STATUS: * Discharged to Home or [...] CABELLO Date Saved: 09/24/2015 02:59 pm Source: [employer] Document Id: [id number] documented in this encounter Plan of Treatment Not on filedocumented as of this encounter Visit Diagnoses Not on filedocumented in this encounter Additional Health Concerns Assessment Noted Time PHQ-9 Depression Total Score: 18 02/14/2013 9:53 AM CD T documented as of this encounter
--- OUTSIDE RECORDS SUMMARY | 2022-08-19 10:32 | XMS_ITS | Encounter Summary ---
:1960 Author Organization [facility] Address [address] [place] [address] Care Team Providers Name Role Phone Unavailable Primary Care Provider Unavailable Encounter Details Date Type Department Care Team Description 04/29/2016 Hospital Encounter HX [facility] Kevin Aguirre M.D. [address] [place] [phone] (Wo rk) Social History Tobacco Use [...] has been seen by plastic surgery in [place] to discuss a panniculectomy due to his [...] pannus. Pictures were taken and uploaded to [employer]. LAB RESULTS Sodium Lvl: 137.3 05/12/15 Potassium [...] Absolute: 4.17 04/07/16 Lymph Absolute: 1.55 04/07/16 Stephens Absolute: 0.55 04/07/16 Eos Absolute: 0.12 04/07/16 Baso Absolute: 0.02 04/07/16 Differential?: Auto 05/12/15 IMPRESSION/REPORT/PLAN 1. DM2 A1c looks great at 5.6. Encouraged patient to continue with healthy diet. I would also like him to check his blood sugars a couple times per month. Ordered: OV Est Pt Level 4 - 93138 - 25 min 2. Bradycardia NOS Heart rate continues in the 40s which is not unusual for patient. With his blood pressure being so good, we are going to stop his metoprolol and have him check his blood pressure and pulse a couple times per week. Ordered: OV Est Pt Level 4 - 87736 - 25 min 3. Hypertension HTN NOS As per #2. Stop metoprolol and monitor. We will call in 1 month for a followup. Ordered: OV Est Pt Level 4 - 30029 - 25 min 4. Insufficiency Renal NOS Creatinine in early April was 1.55. On recheck today it is better. We discussed that taking such high doses of diuretics can certainly cause that to go up. Ordered: OV Est Pt Level 4 - 61191 - 25 min 5. Hyperlipidemia NOS Lipid panel was at goal. He does not need a statin currently. Ordered: OV Est Pt Level 4 - 42383 - 25 min 6. Tinea Groin Perianal Area Pictures were taken of his tinea infection. His plastic surgeon will be updated. He can continue with powder. Ordered: OV Est Pt Level 4 - 14133 - 25 min 7. Retention Fluid We restarted Lasix 40 mg daily as needed for weight gain. Again advised that he should not take really high doses because it affects his kidney function. Ordered: OV Est Pt Level 4 - 79860 - 25 min Orders: furosemide, 40 mg = 1 tab(s), PO, Daily, PRN edema, Leg Swelling, # 90 tab(s), 3 Refill(s), Maintenance, Pharmacy: [id number] Electronically Signed By: KEVIN KILGORE MD On: 04/30/2016 06:30 AM Source: [facility] POWERCHART Document Id: [id number] documented in this encounter Miscellaneous Notes Telephone Encounter - Conversion, Historical Provider Ser - 09/01/2016 1:29 PM CST *Phone Message Document Contains Addenda Addendum by JUDITH PATE LPN on September 02, 2016 08:26:09 REGRADER pharmacy changed in chart per request. From: ANUSHA MAURICE To: [facility] Family Medicine Nurse Bennett; Sent: 09/01/2016 13:29:58 REGRADER Subject: *Phone Message Caller is: (X ) Patient ( ) Mother ( ) Father ( ) Spouse ( ) Daughter ( ) Son ( ) Pharmacy ( ) Other: Physician: Kevin Kilgore Patient MRN #: Reason for Call: Switched Pharmacy's Message: Patient called to state that he switched from [facility] to [facility] in [place]. Any question please call [phone]. No voice mail Advice/Action: Source used: ( [...] back cell phone number ( ) [facility]: [id number] Telephone Encounter - Conversion, Historical Provider Ser [...] 18:23:07 CDT From: KEVIN KILGORE MD To: [place] [facility] Nurse Bennett; Sent: 06/10/2016 18:23:07 [...] and I am placing this order. Thanks, Kevni Addendum by ANOOP QUEVEDO LPN on June 10, 2016 14:16:35 CDT From: ANOOP QUEVEDO LPN ([facility] Nurse Guajardo) To: KEVIN KILGORE MD; Sent: 06/10/2016 14:16:35 CDT Subject: FW: *Phone Message Please advise as our medication list shows he is taking Lasix 40mg Prn. Thanks Anoop From: MARTI CHOI I ([facility] Photonics Technician) To: [place] [facility] Nurse [place]; Sent: 06/10/2016 13:19:55 [...] he takes 2/day. Pharmacy is [facility] in [place]. Patient is hard to reach by phone, but number is [phone]. Advice/Action: Source used: ( ) Verbalizes understanding [...] back cell phone number ( ) Source: [facility] POWERCHART Document Id: [id number] Miscellaneous - Kevin Cobb M.D. - 04/30/2016 [...] (MDRD) >60 mL/min/1.73m2 (>=60 - ) Source: [facility] POWERCHART Document Id: [id number] Electronically signed by Conversion, [facility] Personnel Psychologist [id number] at 02/01/2017 1:26 AM CDT Telephone Encounter [...] 2016 08:45:43 CDT From: HARVEY REDDY LPN ([facility] Medicine Nurse Guajardo) To: KEVIN KILGORE MD; Sent: 04/30/2016 08:45:43 CDT Subject: FW: *Phone Message From: MARTI CHOI I ([facility] Photonics Technician) To: [place] [facility] Nurse Guajardo; Sent: 04/30/2016 08:11:07 [...] was eating, he occasionally has pizza from [employer]. He also meant to ask her about a problem with his nose running a lot. It is an issue his father had and was never able to be diagnosed, he is wondering if Dr Song would have any thoughts regarding this. Cell number is [phone], home number is [phone]. Advice/Action: Source used: ( ) Verbalizes understanding [...] back cell phone number ( ) Source: [facility] POWERCHART Document Id: [id number] Miscellaneous - Kevin Cobb M.D. - 04/30/2016 6:35 AM CDT Reminder Msg Document Contains Addenda Addendum by ANGEL NGUYEN on June 02, 2016 14:46:51 CDT Done, see message dated 06/02/16. From: KEVIN KILGORE MD To: [place] [facility] Nurse [place]; Sent: 04/30/2016 06:35:09 CDT Show up: 05/31/2016 06:35:00 CDT Subject: Reminder Msg Please Remember to: Please call patient for BP and pulse readings. You will speak with his Julissa. Kevin Segura PATIENT: ( ) Call Patient ( ) Ask Patient to ( ) ( ) Call Relative ( ) Schedule Patient ( ) ( ) Call for Metal Grinder ( ) Follow up on Results ( ) Other: PROVIDER: ( ) Call Physician ( ) Call Pharmacist ( ) Call Lab ( ) Other: Special Instructions: Comments: Source: [facility] POWERCHART Document Id: [id number] Electronically signed by Dayami [facility] Personnel Psychologist [id number] at 02/01/2017 1:26 AM CDT Miscellaneous - Kevin Cobb M.D. - 04/29/2016 7:24 PM CDT Ambulatory Patient Summary [address] [id number] Visit Information Name: NOEMÍ LUNA [facility] Number: [id number] Current Date: 04/29/2016 19:24:41 Physicians [...] Swelling This is a CHANGE Routed to [address] [address] *multivitamin with minerals (Flintstones Complete [...] form. Youll be asked for your [facility] number which you can find at the top of this document. Your Goals/Additional instructions: Source: [facility] POWERCHART Document Id: [id number] Miscellaneous - Kevin Cobb M.D. - 04/29/2016 7:24 PM CDT Ambulatory Discharge Medication List [address] [id number] Visit Information Name: NOEMÍ LUNA [facility] Number: [id number] Visit Date: 04/29/2016 19:24:41 Attending [...] Swelling This is a CHANGE Routed to [address] [address] *multivitamin with minerals (Flintstones Complete oral tablet, [...] MD Signed On:29-APR-2016 19:24:36 Additional Information: Source: [facility] POWERCHART Document Id: [id number] Miscellaneous - Alvina Langston, L.P.N. 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 ALVINA LANGSTON [facility] - 04/29/2016 18:33 CDT General Info Information Given By : Patient Preferred Communication Mode : Verbal Languages : Swedish Is Patient Female and 13-50 no hysterectomy : No ALVINA L[facility]STON [facility] - 04/29/2016 18:33 CDT Subjective Pain [...] No Alcohol Use : No ALVINA LANGSTON [facility] - 04/29/2016 18:33 CDT Caffeine Use Grid Caffeine Use : Current Type : Coffee, Soft drinks Frequency : Weekly Amount : soda- weekly; coffee- 1x/week ALVINA LANGSTON [facility] - 04/29/2016 18:33 CDT Recreational Drug Use Grid Drug Use : None ALVINA LANGSTON [facility] - 04/29/2016 18:33 CDT Source: [facility] POWERCHART Document Id: [id number] CDT!40 documented in this encounter Plan of [...] MGDL HXeGFR (MDRD) 54 (L) >=60 POWERCHART [id number] eGFR >60 >=60 POWERCHART Black/ [id number] [place] Specimen (Source) Anatomical Collection Method Collection Time [...]
--- OUTSIDE RECORDS SUMMARY | 2022-08-19 10:32 | XMS_ITS | Encounter Summary ---
:1960 Author Organization [facility] Address [address] [place] [address] Care Team Providers Name Role Phone Unavailable Primary Care Provider Unavailable Encounter Details Date Type Department Care Team Description 09/15/2015 Hospital Encounter HX [facility] Cintia Cobb M.D. [address] [place] [phone] (Wo rk) Social History Tobacco Use [...] 180 cm (5' 10.87) 09/15/2015 9:[address] [facility] Body Mass Index - - documented in [...] 09/15/2015 10:30 AM Result s for this [address] V[facility] procedure are i n the results section . documented in this encounter Results Lipid Panel (09/15/2015 10:[address] VEND[address]) P athologist Signature Cholesterol, 119 <=199 MGDL [...] at or the on-line test catalog at [employer] for information about how to order these wandy ts or to speak with a genetic counselor. Further interpretation would require clinical information. Total Cholesterol/HDL Ratio 2 PO WERCHART Specimen (Source) Anatomical Collection Method Collection Time Re ceived Time Location / / Volume Laterality Blood 09/15/2015 10:[address] [facility] Cintia Copeland M.D. LAB BLOOD ADD-ON Performing Organization Address City/State/ZIP Code Phon e Number POWERCHART documented in this encounter Visit Diagnoses Not on filedocumented in this encounter Additional Health Concerns Assessment Noted Time PHQ-9 Depression Total Score: 18 02/14/2013 9:53 AM CD T documented as of this encounter
--- OUTSIDE RECORDS SUMMARY | 2022-08-19 10:32 | XMS_ITS | Encounter Summary ---
:1960 Author Organization [facility] Address [address] [place] [address] Care Team Providers Name Role Phone Unavailable Primary Care Provider Unavailable Encounter Details Date Type Department Care Team Description 01/05/2017 Hospital Encounter [facility] Angeline LECHUGA Cha, ei, M.D. [address] [place], [place] [phone] (Wo rk) Social History Tobacco Use Types [...] Summary-Paper Based CODING DATE: 01/09/2017 FINAL [place] [facility] STATUS: * Discharged to Home or [...] HICKMAN Date Saved: 01/09/2017 04:56 pm Source: [employer] Document Id: [id number] documented in this encounter Plan of Treatment [...] City/State/ZIP Code Phon e Number [facility] [address] [place] [phone] documented in this encounter Visit Diagnoses Not on filedocumented in this encounter Additional Health Concerns Assessment Noted Time PHQ-9 Depression Total Score: 18 02/14/2013 9:53 AM CD T documented as of this encounter
--- OUTSIDE RECORDS SUMMARY | 2022-08-19 10:32 | XMS_ITS | Encounter Summary ---
:1960 Author Organization [facility] Address [address] [place] [address] Care Team Providers Name Role Phone Unavailable Primary Care Provider Unavailable Encounter Details Date Type Department Care Team Description 05/15/2015 Hospital Encounter HX [facility] [place] Kevin Aguirre M.D. [address] [place] [phone] (Wo rk) Social History Tobacco Use [...] HISTORY Patient is . 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 No tobacco or alcohol. SOCIAL HISTORY Date [...] Absolute: 4.64 05/12/15 Lymph Absolute: 1.63 05/12/15 [place] Absolute: 0.58 05/12/15 Eos Absolute: 0.15 05/12/15 [...] Ordered: OV Est Pt Level 4 - 91718 - 25 min 2. Anemia NOS Hemoglobin was rechecked and has gone up a little to 8.4. I think this is reassuring. I encouraged patient to remember his vitamin B12 and we will also recommend starting an iron supplement. Ordered: OV Est Pt Level 4 - 06408 - 25 min 3. Ulcer Gastric Acute NOS Patient is most likely suffering an acute gastric ulcer due to use of Celebrex in the setting of gastric bypass surgery. He has appropriately stopped the Celebrex. We will continue with Prilosec. EGD will hopefully help determine if there is anything further going on. Ordered: OV Est Pt Level 4 - 48922 - 25 min 4. DM2 Patient brings in a record of his blood sugars which have been doing quite well. Generally they arearound 100 in the morning. He is no longer on insulin. Ordered: OV Est Pt Level 4 - 18451 - 25 min 5. Gastric Bypass S/P We will help arrange appointment to follow up with Dr. Hess, Dr. Saez and Hong, his dietitian. Patient's weight loss has been very successful. Ordered: OV Est Pt Level 4 - 26117 - 25 min 6. Hypertension HTN NOS Blood pressure was initially a little high today. Recheck was a little better. We will need to continue to monitor this. Ordered: OV Est Pt Level 4 - 96839 - 25 min Electronically Signed By: KEVIN KILGORE MD On: 05/16/2015 06:54 AM Source: [facility] POWERCHART Document Id: [id number] documented in this encounter Miscellaneous Notes Miscellaneous - Shirlene Abbott R.N. - 06/19/2015 11:05 AM CDT *General Message Document Contains Addenda Addendum by SORIN VARGAS RN on 20 June 2015 13:46:56 CDT Updated Magali. She will give message to patient and have him tack picker prescription. Reminded her of hemoglobin to [...] working long hours he is currently in [place]. Blood sugars are good, reported many numbers from 85-95. Tailbone is sore because I don't have any meat on it. Did not leave any question or request that could be determined. No phone number. Source: [facility] POWERCHART Document Id: [id number] Electronically signed by Dayami, [facility] Thermal Surfacing Machine Operator [id number] at 02/02/2017 7:04 PM CDT Miscellaneous - Kevin Cobb M.D. - 05/15/2015 4:04 PM CDT Ambulatory Patient Summary [address] [id number] Visit Information Name: NOEMÍ LUNA [facility] Number: [id number] Current Date: 05/15/2015 16:04:00 Physicians [...] Appointments Date Time Location Provider 05/16/2015 11:00 [facility] Jd Bruno MD Attention: Contact [...] if you dont have one. Go to [email or web address] and click on Create Your Account. Then, follow the directions to complete the online form. Youll be asked for your [facility] number which you can find at the top of this document. Your Goals/Additional instructions: Source: [facility] POWERCHART Document Id: [id number] Miscellaneous - Kevin Cobb M.D. - 05/15/2015 4:03 PM CDT Ambulatory Discharge Medication List [address] [id number] Visit Information Name: NOEMÍ LUNA [facility] Number: [id number] Visit Date: 05/15/2015 16:03:58 Attending [...] MD Signed On:15-MAY-2015 16:03:46 Additional Information: Source: [facility] POWERCHART Document Id: [id number] Miscellaneous - Mraco Haji L.P.N. - 05/15/2015 3:26 PM CDT [...] HAJI LPN - 05/15/2015 15:26 CDT Source: [employer] Document Id: [id number] CDT!12 Miscellaneous - Marco Haji L.P.N. 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 Upholstery Estimator Intake/History Entered On: 05/15/2015 15:26 CDT Performed [...] Preferred Communication Mode : Verbal Languages : Divehi Is Patient Female and 13-50 no hysterectomy : No HAJI, HETDAVID Oakes [facility] - 05/15/2015 15:13 CDT Subjective Pain Symptoms : No HAJIMARCO [facility] - 05/15/2015 15:13 CDT Dependent Habits Tobacco Use/Currently Using : No Tobacco Use/Last 12 months : No Tobacco Use/Advised to Quit : No Exposure to Tobacco Smoke : Care provider denies smoking in home Smoking Status : Never smoker Alcohol Use : No PATELDAVID Oakes [facility] - 05/15/2015 15:13 CDT Caffeine Use Grid Caffeine Use : Current Type : Coffee, Soft drinks Frequency : Weekly Amount : soda- weekly; coffee- 1x/week HAJI KRISTINEDAVID Oakes [facility] - 05/15/2015 15:13 CDT Recreational Drug Use Grid Drug Use : None MARCO HAJI [facility] - 05/15/2015 15:13 CDT Source: [facility] POWERCHART Document Id: [id number] CDT!5 documented in this encounter Plan of [...]
--- OUTSIDE RECORDS SUMMARY | 2022-08-19 10:32 | XMS_ITS | Encounter Summary ---
:1960 Author Organization [facility] Address [address] [place] [address] Care Team Providers Name Role Phone Unavailable Primary Care Provider Unavailable Encounter Details Date Type Department Care Team Description 09/18/2015 Hospital Encounter HX [facility] [place] Kevin Aguirre M.D. [address] [place] [id number] (Wo rk) Social History Tobacco Use Types Packs/Day Years Used Date Smoking Tobacco: Never Assessed Sex Assigned at Date Recorded Not on file documented as of this encounter Last Filed Vital Signs Vital Sign Reading Time Taken Comments Blood Pressure 139/69 09/18/2015 6:28 PM PHOTOCOMPOSING MACHINE OPERATOR Pulse 40 09/18/2015 6:28 PM PHOTOCOMPOSING MACHINE OPERATOR Temperature - - Respiratory Rate 16 09/18/2015 6:28 PM PHOTOCOMPOSING MACHINE OPERATOR Oxygen Saturation - - Inhaled Oxygen Concentration - - Weight 87.2 kg (192 lb 3.9 oz) 09/18/2015 6:28 PM PHOTOCOMPOSING MACHINE OPERATOR Height 180 cm (5' 10.87) 09/18/2015 6:28 PM PHOTOCOMPOSING MACHINE OPERATOR Body Mass Index 26.91 09/18/2015 6:28 PM PHOTOCOMPOSING MACHINE OPERATOR documented in this encounter Medications [...] Ordered: OV Est Pt Level 4 - 57785 - 25 min 2. Hypertension HTN NOS Blood pressure is acceptable today. Patient is currently on amlodipine and metoprolol. He may benefit from being on an CARMITA inhibitor in the future. Previously his creatinine had been elevated so this was stopped. Ordered: OV Est Pt Level 4 - 15146 - 25 min 3. Hyperlipidemia NOS Lipid panel is at goal. Continue simvastatin. Ordered: OV Est Pt Level 4 - 08070 - 25 min 4. Flutter Atrial NOS Patient continues to be bradycardic. He is also on a small dose of metoprolol. He is asymptomatic. Ordered: OV Est Pt Level 4 - 80225 - 25 min 5. Impotence Organic I advised patient to not take more Cialis than was prescribed. We again discussed other potential options to treat erectile dysfunction including injectable medications or implantable prostheses. Ordered: OV Est Pt Level 4 - 90057 - 25 min 6. Lump Skin Patient is going to return for an ultrasound to further assess this lump. 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 I confirmed this again. The call center trainer recommended doing more testing which I think [...] now. Thanks, Kevin From: VINEET RAMIREZ LPN ([facility]) To: KEVIN BULLOCK MD; Sent: 11/17/2016 18:33:53 CDT Subject: *General Message pt lvm that he went to [place] to discuss having surgery today and they turned him down. He said he was angry and went down stairs to talk to some really powerful people within [facility] pt services andthey told him that the [...] his time. Please call him back at [phone] and keep trying till he actually picks up as he won't answer numbers he doesn't recognise. If we call several times then he will figure out it is you trying to call. Also Preethi garnisher listened to message to confirm the information he was leaving. Source: [facility] POWERCHART Document Id: [id number] Telephone Encounter - Conversion, Historical Provider Ser - 04/14/2016 10:20 AM CDT *Phone Message Document Contains Addenda Addendum by HARVEY REDDY LPN on April 15, 2016 13:17:09 CDT noted Addendum by KEVIN KILGORE MD on April 15, 2016 12:42:30 CDT From: KEVIN KILGORE MD To: [facility]; Sent: 04/15/2016 12:42:30 CDT Subject: RE: *Phone Message Lasix sent to [facility] until appt on 04/29. Kevin Segura Addendum by ANGEL NGUYEN on April 14, 2016 11:40:08 CDT From: ANGEL NGUYEN ([facility]) To: KEVIN KILGORE [...] is next , 04/29. From: TALYA KELSEY ([facility] Clerk) To: [facility]; Sent: 04/14/2016 10:20:45 [...] back cell phone number ( ) [facility] Document Id: [id number] Telephone Encounter - Conversion, Historical Provider Ser [...] the year for him. From: TALYA KELSEY ([facility]) To: [facility]; Sent: 03/14/2016 15:11:39 [...] of the medication. Please call pt at [phone] Advice/Action: Source used: ( ) Verbalizes understanding [...] back cell phone number ( ) Source: [facility] POWERCHART Document Id: [id number] Miscellaneous - Vineet Ramirez L.P.N. - 10/18/2015 10:06 AM CST *General Message Document Contains Addenda Addendum by ANGEL NGUYEN on 22 October 2015 12:39:20 PHOTOCOMPOSING MACHINE OPERATOR Below lasix info was relayed to patient. Addendum by VINEET RAMIREZ LPN on 22 October 2015 12:30:46 PHOTOCOMPOSING MACHINE OPERATOR Shirlene has information regarding pt. when he calls back. Addendum by ANGEL NGUYEN on 19 October 2015 15:08:45 PHOTOCOMPOSING MACHINE OPERATOR Left a message at his residence to please call us back. Addendum by KEVIN KILGORE MD on 19 October 2015 13:54:08 PHOTOCOMPOSING MACHINE OPERATOR From: KEVIN KILGORE MD To: [facility]; Sent: 10/19/2015 13:54:08 PHOTOCOMPOSING MACHINE OPERATOR Subject: RE: *General Message If his weight has increased by 2 pounds in 24 hours or 5 pounds in 1 week, he can take an extra doseof Lasix and see if that helps. If it continues to be an issue, we should see him back. Kevin Segura From: VINEET RAMIREZ LPN To: KEVIN KILGORE MD; Sent: 10/18/2015 10:06:06 PHOTOCOMPOSING MACHINE OPERATOR Subject: *General Message pt called and stated that he wt at home has [id number] and today 189.5. He kept saying his [...] today. He will be available then. Source: [facility] POWERCHART Document Id: [id number] Electronically signed by Conversion, [facility] Reconcilement Clerk [id number] at 01/31/2017 10:58 AM CDT Miscellaneous - Kevin Bullock M.D. - 09/18/2015 7:10 PM PHOTOCOMPOSING MACHINE OPERATOR Ambulatory Patient Summary [address] [id number] Visit Information Name: NOEMÍ LUNA [facility] Number: [id number] Current Date: 09/18/2015 19:10:50 [...] if you dont have one. Go to [email or web address] and click on Create Your Account. Then, follow the directions to complete the online form. Youll be asked for your [facility] number which you can find at the top of this document. Your Goals/Additional instructions: Source: [facility] POWERCHART Document Id: [id number] OCOMPOSING MACHINE OPERATOR Miscellaneous - Kevin Bullock M.D. - 09/18/2015 7:10 PM PHOTOCOMPOSING MACHINE OPERATOR Ambulatory Discharge Medication List [address] [id number] Visit Information Name: NOEMÍ LUNA [facility] Number: [id number] Visit Date: 09/18/2015 19:10:49 [...] MD Signed On:18-SEP-2015 19:10:35 Additional Information: Source: [facility] POWERCHART Document Id: [id number] OCOMPOSING MACHINE OPERATOR Miscellaneous - Angel Nguyen LPiliPPiliN. - 09/18/2015 6:28 PM CST Adult Real Estate Leasing Manager Intake/History Document Has Been Updated Adult Real Estate Leasing Manager Intake/History Entered On: 09/18/2015 18:35 PHOTOCOMPOSING MACHINE OPERATOR Performed On: 09/18/2015 18:28 PHOTOCOMPOSING MACHINE OPERATOR by ANGEL NGUYEN Intake Chief Complaint : Client states he's due for follow up. Discuss labs. Of note, client started Lasix again on his own, taking one tab daily but is taking AT NIGHT. Denies nocturia. ANGEL NGUYEN - 09/18/2015 18:28 PHOTOCOMPOSING MACHINE OPERATOR Ambulatory Intake Additional Information : Client here for follow - gastric bypass 11/21. Called in by us - states he had labs drawn on 09/15/15. Here to review. Left little finger numbness. ANGEL NGUYEN - 09/18/2015 18:36 PHOTOCOMPOSING MACHINE OPERATOR Temperature Core : 36.0 DegC(Converted to: 96.8 [...] 26.91 kg/m2 ANGEL NGUYEN - 09/18/2015 18:28 PHOTOCOMPOSING MACHINE OPERATOR General Info Information Given By : Patient Languages : Uzbek Is Patient Female and 13-50 no hysterectomy : No ANGEL NGUYEN - 09/18/2015 18:28 PHOTOCOMPOSING MACHINE OPERATOR Subjective Pain Symptoms : No ANGEL NGUYEN - 09/18/2015 18:28 PHOTOCOMPOSING MACHINE OPERATOR Dependent Habits Exposure to Tobacco Smoke : Care provider denies smoking in home, Other: never Smoking Status : Never smoker Tobacco 2A : No Tobacco Use/Currently Using : No Tobacco Use/Last 30 Days : No Tobacco Use/Last 12 months : No ANGEL NGUYEN - 09/18/2015 18:28 PHOTOCOMPOSING MACHINE OPERATOR Alcohol Use : No ANGEL NGUYEN 09/18/2015 18:36 PHOTOCOMPOSING MACHINE OPERATOR ANGEL NGUYEN 09/18/2015 18:36 PHOTOCOMPOSING MACHINE OPERATOR Caffeine Use Grid Caffeine Use : Current Type : Coffee, Soft drinks Frequency : Weekly Amount : soda- weekly; coffee- 1x/week ANGEL NGUYEN [place] 09/18/2015 18:28 PHOTOCOMPOSING MACHINE OPERATOR Recreational Drug Use Grid Drug Use : None ANGEL NGUYEN [place] 09/18/2015 18:28 PHOTOCOMPOSING MACHINE OPERATOR Source: [facility] [employer]mer Document Id: [id number] PHOTOCOMPOSING MACHINE OPERATOR!5 OCOMPOSING MACHINE OPERATOR Miscellaneous - Tiffany Dean L.P.N. - 09/10/2015 9:11 AM CST *General Message Document Contains Addenda Addendum by KEVIN KILGORE MD on 10 September 2015 10:45:50 PHOTOCOMPOSING MACHINE OPERATOR From: KEVIN KILGORE MD To: TIFFANY DEAN LPN; Sent: 09/10/2015 10:45:50 PHOTOCOMPOSING MACHINE OPERATOR Subject: RE: *General Message Thanks for the update. From: TIFFANY DEAN LPN To: KEVIN KILGORE MD; Sent: 09/10/2015 09:11:25 PHOTOCOMPOSING MACHINE OPERATOR Subject: *General Message Dr. Song, pt. called and shared he got a letter about his wt. gain. He shared he feels that hiswt. gain is due to water gain. He has been taking his water pills and has wt. loss in the am approx.4 lbs.He will be seeing you . Source: [facility] POWERCHART Document Id: [id number] Electronically signed by Conversion, [facility] Reconcilement Clerk [id number] at 01/31/2017 10:58 AM CDT documented in this encounter Plan of Treatment Not on filedocumented as of this encounter Visit Diagnoses Not on filedocumented in this encounter Additional Health Concerns Assessment Noted Time PHQ-9 Depression Total Score: 18 02/14/2013 9:53 AM CD T documented as of this encounter
--- OUTSIDE RECORDS SUMMARY | 2022-08-19 10:32 | XMS_ITS | Encounter Summary ---
:1960 Author Organization [facility] Address [address] [place] [address] Care Team Providers Name Role Phone Unavailable Primary Care Provider Unavailable Encounter Details Date Type Department Care Team Description 05/13/2015 Hospital Encounter HX [facility] Eugene Bunch III, M.D. [address] [place] [address] [phone] (Wo rk) Social History Tobacco Use Types [...] 05/13/2015 3:19 PM CDT ED Discharge Instructions [address] [address] Name: NOEMÍ LUNA Date of : 1960 12:00 AM Visit Date: 05/13/2015 12:38 PM [facility] Number: [id number] Address: [address] [facility] [phone] Primary Care Provider: KEVIN KILGORE MD IMPORTANT: [facility] in [place] would like to thank you for allowing us to assist you with your healthcare needs. The following includes patient education materials and informationregarding your injury/illness. Diagnosis: 1:Anemia NOS Follow-Up Instructions: With: Address: When: KEVIN KILGORE [address] [place] [phone] Business (1) In 2days 05/15/2015 Your Upcoming Appointments: Date Time Location Provider 05/15/2015 15:00 [facility] Kevin Song MD Patient Education Materials: [...] output; very dark urine) Abdominal pain ?? [phone] [place] [address]. All rights reserved. This information is not [...] Youll be asked for your [facility] number which you can find at [...] document has images extracted. Please consider using [employer] for all your patient education needs. Source: Covarity Document Id: [id number] Mark Thakkar R.N. - 05/13/2015 3:19 PM CDT ED Depart Summary [facility] Emergency Department Clinical Discharge Summary PERSON INFORMATION Name NOEMÍ LUNA Age 54 Years 1960 12:00 AM Sex Male Language Argentine PCP KEVIN KILGORE MD Marital Status Visit Id Visit Reason Anemia; Taking blood sample; hemoglobin check Specialty Enc Type Emergency Med Service Emergency Medicine Referred by Track Group [facility] ED Discharge 05/13/2015 3:19 PM Tracking Id [id number] Checkout 05/13/2015 3:19 PM Checkin 05/13/2015 12:38 PM Acuity 5 -Non Urgent Dispo Type Left Against Medical Advice Arrival 05/13/2015 12:38 PM Reg Status Complete LOS 000 02:41 Address: [address] [phone] Comment: PROVIDER INFORMATION Provider Role Provider Contact Time MARK THAKKAR HOME MANAGEMENT SUPERVISOR Nurse 05/13/15 12:52 EUGENE BUNCH III, MD ED Provider 05/13/15 12:52 DIAGNOSIS 1:Anemia NOS Comment: PATIENT EDUCATION INFORMATION Instructions: When You Have Gastrointestinal (GI) Bleeding Follow up: With: Address: When: KEVIN KILGORE [address] [place] [phone] Business (4) In 2days 05/15/2015 Source: [employer] Document Id: [id number] documented in this encounter ED Notes Mark [...] THAKKAR RN - 05/13/2015 15:17 CDT Source: [employer] Document Id: [id number] CDT!8 Mark Thakkar R.N. - 05/13/2015 2:48 [...] THAKKAR RN - 05/13/2015 14:48 CDT Source: [employer] Document Id: [id number] CDT!7 Mark Thakkar R.N. - 05/13/2015 2:48 PM CDT ED Pain Assessment ED Pain Assessment Entered On: 05/13/2015 14:48 CDT Performed On: 05/13/2015 14:48 CDT by MARK THAKKAR RN Pain Assessment Pain Symptoms : Yes MARK THAKKAR RN - 05/13/2015 14:48 CDT Source: [facility] POWERCHART Document Id: [id number] CDT!3 Eugene Bunch M.D. - 05/13/2015 2:09 [...] on 09/29/2012 at 52 years. Comments: 09/30/2012 PROPELLANT ASSEMBLER 15:06 STEVE COUCH CNP left Genital warts (078.19) Comments: 09/30/2013 [employer]OPELLANT ASSEMBLER 11:47 ANOOP MESSER LPN onset unknown Tinea pedis* (110.4) Comments: 09/30/2013 PROPELLANT ASSEMBLER 11:47 ANOOP MESSER RN CHEMICAL DEPENDENCY onset unknown Tinea cruris. (110.3) Comments: 09/30/2013 PROPELLANT ASSEMBLER 11:47 ANOOP MESSER RN CHEMICAL DEPENDENCY onset unknown. Surgical history: Gastric bypass (SNOMED CT 0814936221) on 11/19/2014 at 54 Years. Cystoscopy (SNOMED CT 13309459) on 12/26/2009 at 49 Years. Comments: 02/20/2010 08:36 - STEVE ANDREA CNP [facility] / normal PSA, TOTAL SCREENING (CPT4 G0103) on 12/26/2009 at 49 Years. Comments: 02/20/2010 08:38 - STEVE ANDREA CNP Done at [place] / Result: 1.55 Discectomy (SNOMED CT 0871506) on 02/19/1989 at 28 Years. Comments: 12/28/2009 09:38 - STEVE ANDREA CONTROL ELECTRICIAN lumbar L4-L5. Family history: Diabetes mellitus Mother [...] Absolute 4.64 10(9)/L Lymph Absolute 1.63 x10(9)/L [place] Absolute 0.58 x10(9)/L Eos Absolute 0.15 x10(9)/L [...] III, MD On: 05/13/2015 03:06 PM Source: [facility] POWERCHART Document Id: [id number]} Mark Thakkar R.N. - 05/13/2015 1:01 PM [...] System: PowerChart ; Last Updated: 07/24/2011 10:45 PROPELLANT ASSEMBLER ; Life Cycle Date: 12/05/2010 ; Life [...] Comments: 09/30/2013 11:46 - ANOOP QUEVEDO Abby RN CHEMICAL DEPENDENCY onset unknown Flutter Atrial NOS (ICD-9-CM :427.32 ) Name of Problem: Flutter Atrial NOS ; Recorder: KEVIN KILGORE MD; Confirmation: Confirmed ; Classification: Medical ; Code: 427.32 ; Contributor System: PowerChart ; Last Updated: 07/29/2014 7:02 PROPELLANT ASSEMBLER ; Life Cycle Status: Active ; Responsible [...] System: PowerChart ; Last Updated: 09/30/2012 15:06 PROPELLANT ASSEMBLER ; Life Cycle Date: 09/30/2012 ; Life [...] Code: 695.89 ; Last Updated: 07/14/2012 14:36 PROPELLANT ASSEMBLER ; Life Cycle Status: Active ; Responsible [...] System: PowerChart ; Last Updated: 09/05/2010 9:56 PROPELLANT ASSEMBLER ; Life Cycle Date: 09/05/2010 ; Life Cycle Status: Active ; Responsible Provider: STEVE ANDREA CNP; Vocabulary: ICD-9-CM ; Comments: 09/30/2013 11:ANOOP ISAAC R RN CHEMICAL DEPENDENCY onset unknown Optic disc cupping (ICD-9-CM :377.14 [...] Medical ; Code: 110.3 ; Contributor System: Nolio ; Last Updated: 06/01/2013 9:06 CDT ; Life Cycle Date: 06/01/2013 ; Life Cycle Status: Active ; Responsible Provider: MARILUZ FRAGA MD; Vocabulary: ICD-9-CM ; Comments: 09/30/2013 11:ANOOP ISAAC RLPN onset unknown Tinea pedis* (ICD-9-CM :110.4 ) Name of Problem: Tinea pedis* ; Recorder: MARILUZ FRAGA MD; Confirmation: Confirmed ; Classification: Medical ; Code: 110.4 ; Contributor System: A Fourth ActChart ; Last Updated: 02/02/2014 8:24 CDT ; Life Cycle Date: 06/01/2013 ; Life Cycle Status: Active ; Responsible Provider: MARILUZ FRAGA MD; Vocabulary: ICD-9-CM ; Comments: 09/30/2013 11:ANOOP ISAAC R RN CHEMICAL DEPENDENCY onset unknown Ulcer of skin NOS (ICD-9-CM :707.9 ) Name of Problem: Ulcer of skin NOS ; Recorder: HALEIGH SCHULTZ CNP; Confirmation: Confirmed ; Classification: UPDATE NEEDED ; Code: 707.9 ; Contributor System: PowerChart ; Last Updated: 09/18/2010 8:25 PROPELLANT ASSEMBLER ; Life Cycle Date: 09/18/2010 ; Life Cycle Status: Active ; Responsible Provider: HALEIGH SCHULTZ CNP; Vocabulary: ICD-9-CM ; Comments: 09/30/2013 11:47 - ANOOP QUEVEDO LPN onset unknown Unspecified Adjustment Reaction (ICD-9-CM :309.9 ) Name of Problem: Unspecified Adjustment Reaction ; Onset Date: 05/05/2013 ; Confirmation: Confirmed ; Classification: Medical ; Code: 309.9 ; Contributor System: [facility]_UPLOAD ; Last Updated: 12/03/2013 18:36 CDT ; Life Cycle Status: Active ; Vocabulary: ICD-9-CM ; Comments: - Unspecified adjustment reaction Urge Incontinence (ICD-9-CM :788.31 ) Name of Problem: Urge Incontinence ; Recorder: STEVE ANDREA; Confirmation: Confirmed ; Classification: Medical ; Code: 788.31 ; Contributor System: Nolio ; Last Updated: 02/20/2010 8:39 CDT ; [...] PNED ; Probability: 0 ; Diagnosis Code: [id number] Triage Chief Complaint Description : see triage note Information Given By : Patient Accompanied By : Spouse Mode of Arrival ED : Private vehicle Track : Medical Languages : Argentine Patient Informed of Triage Location : Emergency department GCS Assessed : Yes Treatments Prior to Arrival : None Is Patient Female and 13-50 no hysterectomy : No MARK THAKKAR RN - 05/13/2015 13:01 CDT Lois Coma Eye Opening Response [place] : Spontaneously Best Verbal Response [place] : Oriented Best Motor Response [place] : Obeys simple commands [place] Coma Score : 15 MARK THAKKAR RN [...] : 5 -Non Urgent Tracking Group : [facility] ED MARK THAKKAR Jim RN - [...] THAKKAR RN - 05/13/2015 13:01 CDT Source: [facility] Benefitter Document Id: [id number] CDT!75 Mark Thakkar R.N. - 05/13/2015 12:53 [...] Medical ; Code: 600.00 ; Contributor System: Nolio ; Last Updated: 02/15/2010 10:00 CDT ; Life Cycle Date: 02/15/2010 ; Life Cycle Status: Active ; Responsible Provider: STEVE ANDREA CNP; Vocabulary: ICD-9-CM ; Comments: 09/30/2013 11:46 - ANOOP QUEVEDO R RN CHEMICAL DEPENDENCY onset unknown DM II (or NOS), uncontrolled (ICD-9-CM :250.02 ) Name of Problem: DM II (or NOS), uncontrolled ; Onset Date: 12/28/2009 ; Recorder: STEVE ANDREA CNP; Confirmation: Confirmed ; Classification: Medical ; Code: 250.02 ; Contributor System: PowerChart ; Last Updated: 07/24/2011 10:45 PROPELLANT ASSEMBLER ; Life Cycle Date: 12/05/2010 ; Life [...] ; Comments: 09/30/2013 11:47 - QUEVEDOANOOP R RN CHEMICAL DEPENDENCY onset unknown Erectile dysfunction* (ICD-9-CM :607.84 ) Name of Problem: Erectile dysfunction* ; Recorder: STEVE ANDREA CNP; Confirmation: Confirmed ; Classification: Medical ; Code: 607.84 ; Contributor System: PowerChart ; Last Updated: 12/28/2009 9:40 CDT ; Life Cycle Date: 12/28/2009 ; Life Cycle Status: Active ; Responsible Provider: STEVE ANDREA CNP; Vocabulary: ICD-9-CM ; Comments: 09/30/2013 11:46 - QUEVEDOANOOP R RN CHEMICAL DEPENDENCY onset unknown Flutter Atrial NOS (ICD-9-CM :427.32 ) Name of Problem: Flutter Atrial NOS ; Recorder: KEVIN KILGORE MD; Confirmation: Confirmed ; Classification: Medical ; Code: 427.32 ; Contributor System: PowerChart ; Last Updated: 07/29/2014 7:02 PROPELLANT ASSEMBLER ; Life Cycle Status: Active ; Responsible Provider: KEVIN KILGORE MD; Vocabulary: ICD-9-CM Flutter Atrial NOS (ICD-9-CM :427.32 ) Name of Problem: Flutter Atrial NOS ; Recorder: JOSIE CASTANEDA LPN, RT; Confirmation: Confirmed ; Classification: Medical ; Code: 427.32 ; Contributor System: A Fourth ActChart ; Last Updated: 01/04/2015 10:57 CDT ; Life Cycle Status: Active ; Vocabulary: ICD-9-CM Fracture Closed Radial head (ICD-9-CM :813.05 ) Name of Problem: Fracture Closed Radial head ; OnsetDate: 09/29/2012 ; Recorder: STEVE ANDREA CNP; Confirmation: Confirmed ; Classification: Medical ; Code: 813.05 ; Contributor System: A Fourth ActChart ; Last Updated: 09/30/2012 15:06 PROPELLANT ASSEMBLER ; Life Cycle Date: 09/30/2012 ; Life Cycle Status: Active ; Responsible Provider: STEVE ANDREA CNP; Vocabulary: ICD-9-CM ; Comments: 09/30/2012 15:06 - STEVE ANDREA CNP left Genital warts (ICD-9-CM :078.19 ) Name of Problem: Genital warts ; Recorder: MARILUZ FRAGA MD; Confirmation: Confirmed ; Classification: UPDATE NEEDED ; Code: 078.19 ; Contributor System: A Fourth ActChart; Last Updated: 02/11/2013 16:19 CDT ; Life [...] Code: 695.89 ; Last Updated: 07/14/2012 14:36 PROPELLANT ASSEMBLER ; Life Cycle Status: Active ; Responsible [...] System: PowerChart ; Last Updated: 09/05/2010 9:56 PROPELLANT ASSEMBLER ; Life Cycle Date: 09/05/2010 ; Life [...] Medical ; Code: 110.3 ; Contributor System: Nolio ; Last Updated: 06/01/2013 9:06 CDT ; Life Cycle Date: 06/01/2013 ; Life Cycle Status: Active ; Responsible Provider: MARILUZ FRAGA MD; Vocabulary: ICD-9-CM ; Comments: 09/30/2013 11:ANOOP ISAAC RLPN onset unknown Tinea pedis* (ICD-9-CM :110.4 ) Name of Problem: Tinea pedis* ; Recorder: MARILUZ FRAGA MD; Confirmation: Confirmed ; Classification: Medical ; Code: 110.4 ; Contributor System: Nolio ; Last Updated: 02/02/2014 8:24 CDT ; Life Cycle Date: 06/01/2013 ; Life Cycle Status: Active ; Responsible Provider: MARILUZ FRAGA MD; Vocabulary: ICD-9-CM ; Comments: 09/30/2013 11:47 ANOOP GONZALEZ R RN CHEMICAL DEPENDENCY onset unknown Ulcer of skin NOS (ICD-9-CM :707.9 ) Name of Problem: Ulcer of skin NOS ; Recorder: HALEIGH SCHULTZ CNP; Confirmation: Confirmed ; Classification: UPDATE NEEDED ; Code: 707.9 ; Contributor System: A Fourth ActChart ; Last Updated: 09/18/2010 8:25 PROPELLANT ASSEMBLER ; Life Cycle Date: 09/18/2010 ; Life Cycle Status: Active ; Responsible Provider: HALEIGH SCHULTZ CNP; Vocabulary: ICD-9-CM ; Comments: 09/30/2013 11:ANOOP ISAAC RN CHEMICAL DEPENDENCY onset unknown Unspecified Adjustment Reaction (ICD-9-CM :309.9 ) Name of Problem: Unspecified Adjustment Reaction ; Onset Date: 05/05/2013 ; Confirmation: Confirmed ; Classification: Medical ; Code: 309.9 ; Contributor System: [facility] ; Last Updated: 12/03/2013 18:36 CDT ; [...] ; Comments: 09/30/2013 11:46 - ANOOP QUEVEDO RN CHEMICAL DEPENDENCY onset unknown Diagnoses(Active) Taking blood sample Date: 05/13/2015 ; Diagnosis Type: Reason For Visit ; Confirmation: Complaint of; Clinical Dx: Taking blood sample ; Classification: Medical ; Clinical Service: Emergency medicine ; Code: PNED ; Probability: 0 ; Diagnosis Code: [id number] Triage Chief Complaint Description : 54 yo [...] Private vehicle Track : Medical Languages : Argentine Patient Informed of Triage Location : Emergency [...] MARK THAKKAR RN - 05/13/2015 12:53 CDT [place] Coma Eye Opening Response [place] : Spontaneously Best Verbal Response [place] : Oriented Best Motor Response [place] : Obeys simple commands Lois Coma Score [...] : 5 -Non Urgent Tracking Group : [facility] ED MARK THAKKAR RN - 05/13/2015 [...] THAKKAR RN - 05/13/2015 12:53 CDT Source: [facility] Benefitter Document Id: [id number] CDT!52 documented in this encounter Miscellaneous Notes [...] that he would rather have care at [facility]-. Discussed with patient that he needs to take recommended RX and follow up sooner in ED if sx worsen. Patient verbalized understanding. MARK THAKKAR RN - 05/14/2015 8:21 CDT Source: [facility] POWERCHART Document Id: [id number] CDT!6 Miscellaneous - Conversion, Historical Provider Ser - 05/13/2015 3:19 PM CDT Coding Summary-Paper Based CODING DATE: 05/22/2015 FINAL [facility] STATUS: Left Against Medical Advice [...] HEREDIA Date Saved: 05/22/2015 08:26 am Source: Covarity Document Id: [id number] Miscellaneous - Mark Thakkar R.N. - 05/13/2015 [...] THAKKAR RN - 05/13/2015 15:17 CDT Source: [employer] Document Id: [id number] CDT!11 Miscellaneous - Mark Thakkar R.N. - 05/13/2015 2:48 PM CDT Valuables/Belongings Valuables/Belongings Entered On: 05/13/2015 14:49 CDT Performed On: 05/13/2015 14:48 CDT by MARK THAKKAR RN Valuables/Belongings Belongings Sent Home With : all belongings sent home with patient Home Medication Disposition : None brought in with patient MARK THAKKAR RN - 05/13/2015 14:48 CDT [facility] Document Id: [id number] CDT!4 Miscellaneous - Mark Thakkar R.N. - [...] RTF : Triage Forms ED Triage Assessment,05/13/15 12:53,AMRK THAKKAR RN Nursing Notes ED Primary Assessment,05/13/15 13:01,MARK THAKKAR RN ED Pain Assessment,05/13/15 14:48,MARK THAKKAR RN [place] Nursing Assessment : Triage and 1-2 nursing assessments [place] Disposition : Discharge [place] Total Points with Diagnosis Control : 8 [place] Visit Level : 50748 Level 4 Treatments Prior to Arrival : None MARK THAKKAR RN - 05/13/2015 14:49 CDT Chief Complaint 11.0 Reason For Visit Category : Gastrointestinal TVL Calculation : 12 ED Chief Complaint Gastrointestinal 11.0 : Abdominal pain TVL for Facility Charge Ticket Dx : Level 4 MARK THAKKAR RN - 05/13/2015 14:49 CDT Source: [facility] POWERInstantLuxe Document Id: [id number] CDT!23 documented in this encounter Plan of [...]
--- OUTSIDE RECORDS SUMMARY | 2022-08-19 10:32 | XMS_ITS | Encounter Summary ---
:1960 Author Organization [facility] Address [address] [place] [address] Care Team Providers Name Role Phone Unavailable Primary Care Provider Unavailable Encounter Details Date Type Department Care Team Description 02/22/2016 Hospital Encounter HX [facility] ED Alexandra Barker M.D. [address] [place] [address] 021 (Wo rk) Social History Tobacco Use [...] 02/22/2016 8:10 PM CDT ED Discharge Instructions [address] [address] Name: NOEMÍ LUNA Date of : 1960 12:00 AM Visit Date: 02/22/2016 6:18 PM [facility] Number: [id number] Address: [place] [address] [facility] [phone] Primary Care Provider: KEVIN KILGORE MD IMPORTANT: [facility] in [place] would like to thank you for allowing us to assist you with your healthcare needs. The following includes patient education materials and informationregarding your injury/illness. Diagnosis: Stomatitis NOS Follow-Up Instructions: With: Address: When: KEVIN KILGORE [address] [place] [id number] Business (1) Within As Needed Your Upcoming [...] 1/2 cup of warm water ?? An imbe-aed-exiagni anesthetic gargle Use Medication for More Relief Tirs-afl-kmbyvgc medication can reduce sore throat symptoms. Ask [...] glands in the neck or jaw ?? [id number] Nadeem [facility], [address] [place] [address], [place] [address]. All rights reserved. This information is not [...] if you dont have one. Go to [email or web address] and click on Create Your Account. Then, follow the directions to complete the online form. Youll be asked for your [facility] number which you can find at the [...] document has images extracted. Please consider using [employer] for all your patient education needs. Source: [facility] POWERCHART Document Id: [id number] Nicky Madrigal, R.NPili - 02/22/2016 8:10 PM CDT ED Depart Summary [facility] Clinical Discharge Summary PERSON INFORMATION Name NOEMÍ LUNA Age 55 Years 1960 12:00 AM Sex Male Language Pashto PCP KEVIN KILGORE MD Marital Status Visit Id Visit Reason Throat pain - Adult; Throat pain - Adult; Sore Throat Specialty Enc Type Emergency Med Service Emergency Medicine Referred by Track Group [facility] ED Discharge 02/22/2016 8:05 PM Tracking Id [id number] Checkout 02/22/2016 8:05 PM Checkin 02/22/2016 6:18 PM Acuity 4 -Less Urgent Dispo Type * Discharged to Home or Self Care Arrival 02/22/2016 6:18 PM Reg Status Complete LOS 000 01:47 Address: [address] [phone] Comment: PROVIDER INFORMATION Provider Role Provider Contact Time CIERRA BARKER MD ED Provider 02/22/16 18:27 NICKY MADRIGAL JEWELRY CONSULTANT Nurse 02/22/16 18:37 DIAGNOSIS Stomatitis NOS Comment: PATIENT EDUCATION INFORMATION Instructions: Self-Care for Sore Throats Follow up: With: Address: When: KEVIN KILGORE [address] [place] [phone] Business () Within As Needed Source: [facility] POWERCHART Document Id: [id number] documented in this encounter Medications at Time [...] MADRIGAL RN - 02/22/2016 20:08 CDT Source: [employer] Document Id: [id number] CDT!3 Nicky Madrigal RAugustine - 02/22/2016 8:08 PM CDT ED Pain Assessment ED Pain Assessment Entered On: 02/22/2016 20:08 CDT Performed On: 02/22/2016 20:08 CDT by NICKY MADRIGAL RN Pain Assessment Pain Symptoms : No NICKY MADRIGAL RN - 02/22/2016 20:08 CDT Source: [employer] Document Id: [id number] CDT!3 Nicky Madrigal R.N. - 02/22/2016 7:40 [...] MADRIGAL RN - 02/22/2016 20:09 CDT Source: [employer] Document Id: [id number] CDT!6 Nicky Madrigal RAugustine - 02/22/2016 7:22 [...] System: PowerChart ; Last Updated: 07/24/2011 10:45 RADIOPHONE OPERATOR ; Life Cycle Date: 12/05/2010 ; Life [...] System: PowerChart ; Last Updated: 07/29/2014 7:02 RADIOPHONE OPERATOR ; Life Cycle Status: Active ; Responsible [...] System: PowerChart ; Last Updated: 09/30/2012 15:06 RADIOPHONE OPERATOR ; Life Cycle Date: 09/30/2012 ; Life Cycle Status: Active ; Responsible Provider: STEVE ANDREA APRN, CNP; Vocabulary: ICD-9-CM ; Comments: 09/30/2012 15:06 - STEVE ANDREA APRN, CNP left Genital warts (ICD-9-CM :078.19 ) Name of Problem: Genital warts ; Recorder: MARILUZ FRAGA MD; Confirmation: Confirmed ; Classification: UPDATE NEEDED ; Code: 078.19 ; Contributor System: PowerChart; Last Updated: 11/05/2015 4:20 RADIOPHONE OPERATOR ; Life Cycle Date: 02/11/2013 ; Life [...] Code: 695.89 ; Last Updated: 07/14/2012 14:36 RADIOPHONE OPERATOR ; Life Cycle Status: Active ; Responsible [...] System: PowerChart ; Last Updated: 09/05/2010 9:56 RADIOPHONE OPERATOR ; Life Cycle Date: 09/05/2010 ; Life Cycle Status: Active ; Responsible Provider: STEVE ANDREA APRN SCRAP BUNCH MAKER; Vocabulary: ICD-9-CM ; Comments: 09/30/2013 11:ANOOP ISAAC R DISTRIBUTOR [employer]ICATION[employer] onset unknown Optic disc cupping (ICD-9-CM :377.14 [...] Medical ; Code: 110.3 ; Contributor System: [employer] ; Last Updated: 06/01/2013 9:06 CDT ; Life Cycle Date: 06/01/2013 ; Life Cycle Status: Active ; Responsible Provider: MARILUZ FRAGA MD; Vocabulary: ICD-9-CM ; Comments: 09/30/2013 11:ANOOP ISAAC RLPN onset unknown Tinea pedis* (ICD-9-CM :110.4 ) Name of Problem: Tinea pedis* ; Recorder: MARILUZ FRAGA MD; Confirmation: Confirmed ; Classification: Medical ; Code: 110.4 ; Contributor System: [employer] ; Last Updated: 02/02/2014 8:24 CDT ; Life Cycle Date: 06/01/2013 ; Life Cycle Status: Active ; Responsible Provider: MARILUZ FRAGA MD; Vocabulary: ICD-9-CM ; Comments: 09/30/2013 11:ANOOP ISAAC R DISTRIBUTOR [employer]ICATION[employer] onset unknown Ulcer of skin NOS (ICD-9-CM :707.9 ) Name of Problem: Ulcer of skin NOS ; Recorder: HALEIGH SCHULTZ APRN SCRAP BUNCH MAKER; Confirmation: Confirmed ; Classification: UPDATE NEEDED ; Code: 707.9 ; Contributor System:PowerChart ; Last Updated: 09/18/2010 8:25 RADIOPHONE OPERATOR ; Life Cycle Date: 09/18/2010 ; Life Cycle Status: Active ; Responsible Provider: HALEIGH SCHULTZ APRN, CNP; Vocabulary: ICD-9-CM ; Comments: 09/30/2013 11:47 - ANOOP QUEVEDO LPN onset unknown Unspecified Adjustment Reaction (ICD-9-CM :309.9 ) Name of Problem: Unspecified Adjustment Reaction ; Onset Date: 05/05/2013 ; Confirmation: Confirmed ; Classification: Medical ; Code: 309.9 ; Contributor System: [facility]PR_UPLOAD ; Last Updated: 12/03/2013 18:36 CDT ; Life Cycle Status: Active ; Vocabulary: ICD-9-CM ; Comments: - Unspecified adjustment reaction Urge Incontinence (ICD-9-CM :788.31 ) Name of Problem: Urge Incontinence ; Recorder: STEVE ANDREA CNP; Confirmation: Confirmed ; Classification: Medical ; Code: 788.31 ; Contributor System: [employer] ; Last Updated: 02/20/2010 8:39 CDT ; [...] PNED ; Probability: 0 ; Diagnosis Code: [id number] Throat pain - Adult Date: 02/22/2016 ; Diagnosis Type: Reason For Visit ; Confirmation: Complaint of; Clinical Dx: Throat pain - Adult ; Classification: Medical ; Clinical Service: Non-Specified ; Code: PNED ; Probability: 0 ; Diagnosis Code: [id number] Triage Chief Complaint Description : See Triage Note Mode of Arrival ED : Private vehicle Track : Medical Languages : Pashto Treatments Prior to Arrival : None Is [...] MADRIGAL RN - 02/22/2016 19:22 CDT Source: [facility] [employer] Document Id: [id number] CDT!45 Cierra Barker M.D. - 02/22/2016 7:06 [...] on 09/29/2012 at 52 years. Comments: 09/30/2012 RADIOPHONE OPERATOR 15:06 RADIOPHONE OPERATOR - STEVE ANDREA APRN SCRAP BUNCH MAKER left Genital warts (078.19) Comments: 09/30/2013 RADIOPHONE OPERATOR 11:47 RADIOPHONE OPERATOR ANOOP GONZALEZ LPN onset unknown Tinea pedis* (110.4) Comments: 09/30/2013 RADIOPHONE OPERATOR 11:47 RADIOPHONE OPERATOR ANOOP GONZALEZ DISTRIBUTOR PUBLICATIONS onset unknown Tinea cruris. (110.3) Comments: 09/30/2013 RADIOPHONE OPERATOR 11:47 RADIOPHONE OPERATOR ANOOP GONZALEZ DIST[employer]ICATION[employer] onset unknown. Surgical history: Gastric bypass ([id number]) on 11/19/2014 at 54 Years. Cystoscopy ([id number]) on 12/26/2009 at 49 Years. Comments: 02/20/2010 08:36 - STEVE ANDREA SCRAP BUNCH MAKER [place] [facility] / normal PSA, TOTAL SCREENING (G0103) on 12/26/2009 at 49 Years. Comments: 02/20/2010 08:38 - STEVE ANDREA SCRAP BUNCH MAKER Done at [place] / Result: 1.55 Discectomy ([id number]) on 02/19/1989 at 28 Years. Comments: 12/28/2009 [...] BARKER MD On: 02/22/2016 07:46 PM Source: [facility] POWERCHART Document Id: [id number]} Nicky Madrigal, R.N. - 02/22/2016 6:28 PM [...] Medical ; Code: 600.00 ; Contributor System: [employer] Gen[employer]Chart ; Last Updated: 02/15/2010 10:00 CDT ; [...] System: PowerChart ; Last Updated: 07/24/2011 10:45 RADIOPHONE OPERATOR ; Life Cycle Date: 12/05/2010 ; Life [...] System: PowerChart ; Last Updated: 07/29/2014 7:02 RADIOPHONE OPERATOR ; Life Cycle Status: Active ; Responsible [...] System: PowerChart ; Last Updated: 09/30/2012 15:06 RADIOPHONE OPERATOR ; Life Cycle Date: 09/30/2012 ; Life Cycle Status: Active ; Responsible Provider: STEVE ANDREA APRN, CNP; Vocabulary: ICD-9-CM ; Comments: 09/30/2012 15:06 - STEVE ANDREA APRN, CNP left Genital warts (ICD-9-CM :078.19 ) Name of Problem: Genital warts ; Recorder: MARILUZ FRAGA MD; Confirmation: Confirmed ; Classification: UPDATE NEEDED ; Code: 078.19 ; Contributor System: [employer]; Last Updated: 11/05/2015 4:20 RADIOPHONE OPERATOR ; Life Cycle Date: 02/11/2013 ; Life [...] Code: 695.89 ; Last Updated: 07/14/2012 14:36 RADIOPHONE OPERATOR ; Life Cycle Status: Active ; Responsible [...] Obesity NOS ; Recorder: STEVE ANDREA APRN SCRAP BUNCH MAKER; Confirmation: Confirmed ; Classification: Medical ; Code: 278.00 ; Contributor System: PowerChart ; Last Updated: 09/05/2010 9:56 RADIOPHONE OPERATOR ; Life Cycle Date: 09/05/2010 ; Life Cycle Status: Active ; Responsible Provider: STEVE ANDREA APRN SCRAP BUNCH MAKER; Vocabulary: ICD-9-CM ; Comments: 09/30/2013 11:47 ANOOP GONZALEZ DISTRIBUTOR PUBLICATIONS onset unknown Optic disc cupping (ICD-9-CM :377.14 [...] Ulcer of skin NOS ; Recorder: HALEIGH CSHULTZ APRN, CNP; Confirmation: Confirmed ; Classification: UPDATE NEEDED ; Code: 707.9 ; Contributor System:[employer] ; Last Updated: 09/18/2010 8:25 RADIOPHONE OPERATOR ; Life Cycle Date: 09/18/2010 ; Life Cycle Status: Active ; Responsible Provider: HALEIGH SCHULTZ APRN, CNP; Vocabulary: ICD-9-CM ; Comments: 09/30/2013 11:47 - ANOOP QUEVEDO LPN onset unknown Unspecified Adjustment Reaction (ICD-9-CM :309.9 ) Name of Problem: Unspecified Adjustment Reaction ; Onset Date: 05/05/2013 ; Confirmation: Confirmed ; Classification: Medical ; Code: 309.9 ; Contributor System: [facility]PL[facility] ; Last Updated: 12/03/2013 18:36 CDT ; Life Cycle Status: Active ; Vocabulary: ICD-9-CM ; Comments: - Unspecified adjustment reaction Urge Incontinence (ICD-9-CM :788.31 ) Name of Problem: Urge Incontinence ; Recorder: STEVE ANDREA CNP; Confirmation: Confirmed ; Classification: Medical ; Code: 788.31 ; Contributor System: [employer] ; Last Updated: 02/20/2010 8:39 CDT ; [...] PNED ; Probability: 0 ; Diagnosis Code: [id number] Triage Chief Complaint Description : Sore Throat for 1 week. Unable to eat or drink for approx. can take sips of liquids and clear liq. Slight discomfort/dull pain in chest. patient believes it could be from not eating anything. Information Given By : Patient Present in Room During Exam/Procedure : Alone Mode of Arrival ED : Private vehicle Track : Medical Languages : Pashto Treatments Prior to Arrival : None Is [...] : 4 -Less Urgent Tracking Group : [facility] ED NICKY MADRIGAL Terri RN - 02/22/2016 [...] MADRIGAL RN - 02/22/2016 18:28 CDT Source: [facility] [employer] Document Id: [id number] CDT!46 documented in this encounter Miscellaneous Notes [...] before making changes. Pt hung up. Source: [facility] [employer] Document Id: [id number] Electronically signed by Conversion, [facility] Supervisor [employer] [id number] at 01/31/2017 6:19 PM CDT Miscellaneous - Shirlene Dominguez R.N. - 02/26/2016 1:30 PM CDT Tums From: SHIRLENE DOMINGUEZ RN Sent: 02/26/2016 13:30:48 CDT Subject: Tums Pt wants only Forde flavored Tums, would have to be extra strength. Discussed with provider, pt has instructions on taking and can not change script amount without visit to discuss. Source: [facility] [employer] Document Id: [id number] Electronically signed by Conversion, [facility] Supervisor [employer] [id number] at 01/31/2017 6:19 PM CDT Miscellaneous - Nicky Madrigal R.N. - 02/22/2016 8:08 PM CDT Valuables/Belongings Valuables/Belongings Entered On: 02/22/2016 20:08 CDT Performed On: 02/22/2016 20:08 CDT by NICKY MADRIGAL RN Valuables/Belongings Home Medication Disposition : None brought in with patient NICKY MADRIGAL RN - 02/22/2016 20:08 CDT Source: [facility] [employer] Document Id: [id number] CDT!3 Miscellaneous - Conversion, Historical Provider Ser - 02/22/2016 8:05 PM CDT Coding Summary-Paper Based CODING DATE: 02/29/2016 FINAL [facility] STATUS: * Discharged [...] VERGARA Date Saved: 02/29/2016 02:01 pm [facility] Document Id: [id number] Miscellaneous - Nicky Madrigal, R.N. - 02/22/2016 8:05 PM CDT Facility Charge Ticket 2.0 11.0 DX Facility Charge Ticket 2.0 11.0 DX Entered On: 02/22/2016 20:09 CDT Performed On: 02/22/2016 20:05 CDT by NICKY MDARIGAL RN Facility Charge Ticket 2.0 11.0 DX [...] Nursing Notes ED Primary Assessment,02/22/16 19:22,NICKY MADRIGAL JEWELRY CONSULTANT Pain Assessment,02/22/16 20:08,NICKY MADRIGAL RN [facility] Nursing Assessment : Triage and 1-2 nursing assessments [facility] Disposition : Discharge [place] Total Points with Diagnosis Control : 5 [place] Visit Level : 13259 Level 3 Treatments Prior to Arrival : None NICKY MADRIGAL RN - 02/22/2016 20:08 CDT Source: [employer] Document Id: [id number] CDT!18 documented in this encounter Plan of [...] Strep A Screen (02/22/2016 6:50 PM CDT) [facility] Method Time Signature HXRapid Strep POWERCHART Confirmation HXPre Pending POWERCHART HXFinal NEG POWERCHART HXFinal [facility] [address] [facility] [address] Specimen Anatomical Collection Method Collection Time Receive d Time (Source) Location / / Volume Laterality Throat 02/22/2016 6:50 PM 6 6:50 CDT PM CDT Cierra Barker M.D. LAB MICROBIOLOGY - GENERAL O SARHA Performing Organization Address City/State/ZIP Code Phon e Number POWERCHART Rapid Strep A Screen (02/22/2016 6:50 PM CDT) [facility] Method Time Signature HXStrep A POWERCHART [...]
--- OUTSIDE RECORDS SUMMARY | 2022-08-19 10:33 | XMS_ITS | Encounter Summary ---
:1960 Author Organization [facility] Address [address] [place] [address] Care Team Providers Name Role Phone Unavailable Primary Care Provider Unavailable Encounter Details Date Type Department Care Team Description 04/14/2015 Hospital Encounter HX [facility] ED Alexandra Barker M.D. [address] [place] [address] (Wo rk) Social History Tobacco Use Types [...] 04/14/2015 5:42 PM CDT ED Discharge Instructions [address] [address] Name: NOEMÍ ULNA Date of : 1960 12:00 AM Visit Date: 04/14/2015 3:44 PM [facility] Number: [id number] Address: [address] [facility] [id number] Primary Care Provider: KEVIN KILGORE MD IMPORTANT: [facility] in [place] would like to thank you for allowing us to assist you with your healthcare needs. The following includes patient education materials and informationregarding your injury/illness. Diagnosis: Pain Chest Wall (CWP) Follow-Up Instructions: With: Address: When: KEVIN KILGORE [address] [place] [address] [phone] Business (1) Within As Needed Comments: Your [...] as directed by your healthcare provider ?? [phone] [facility], [address] [place] [address], [place] [address]. All rights reserved. This information is not [...] if you dont have one. Go to [email or web address] and click on Create Your Account. Then, follow the directions to complete the online form. Youll be asked for your [facility] number which you can find at the [...] ride home with a responsible libertarian. I, LUNA, ED J , or responsible libertarian have received this information and my questions have been answered. I have discussed any challenges I see with this plan with the nurse or physician. Patient Signature or Responsible Republican/Relationship Date Time Provider Signature Date Time jyoti This document has images extracted. Please consider using [employer] for all your patient education needs. Source: [facility] [employer] Document Id: [id number] Ana Reeves RKevin. - 04/14/2015 5:42 PM CDT ED Depart Summary [facility] Emergency Department Clinical Discharge Summary PERSON INFORMATION Name NOEMÍ LUNA Age 54 Years 1960 12:00 AM Sex Male Language German PCP KEVIN KILGORE MD Marital Status Visit Id Visit Reason Rib/trunk pain-swelling; back and rib pain Specialty Enc Type Emergency Med Service Emergency Medicine Referred by Track Group [facility] ED Discharge 04/14/2015 5:28 PM Tracking Id [id number] Checkout 04/14/2015 5:28 PM Checkin 04/14/2015 3:44 PM Acuity 3 -Urgent Dispo Type * Discharged to Home or Self Care Arrival 04/14/2015 3:44 PM Reg Status Complete LOS 000 01:44 Address: [address] [place] [phone] Comment: PROVIDER INFORMATION Provider Role Provider Contact Time ANA REEVES NURSING ADMIN Nurse 04/14/15 16:09 CIERRA BARKER MD ED Provider 04/14/15 16:12 DIAGNOSIS Pain Chest Wall (CWP) Comment: PATIENT EDUCATION INFORMATION Instructions: CHEST WALL STRAIN Follow up: With: Address: When: KEVIN NELSON[address] [address] [phone] Business (1) Within As Needed Comments: Source: [employer] Document Id: [id number] documented in this encounter ED Notes Ana [...] REEVES RN - 04/14/2015 17:34 CDT Source: [employer] Document Id: [id number] CDT!7 Ana Reeves R.N. - 04/14/2015 5:34 PM CDT ED Pain Assessment ED Pain Assessment Entered On: 04/14/2015 17:34 CDT Performed On: 04/14/2015 17:34 CDT by ANA REEVES RN Pain Assessment Pain Symptoms : Yes ANA REEVES RN - 04/14/2015 17:34 CDT Source: [employer] Document Id: [id number] CDT!3 Cierra Barker M.D. - 04/14/2015 4:27 [...] on 09/29/2012 at 52 years. Comments: 09/30/2012 PLANNER/SCHEDULER 15:06 STEVE COUCH CNP left Genital warts (078.19) Comments: 09/30/2013 PLANNER/SCHEDULER 11:47 PLANNER/SCHEDULER ANOOP GONZALEZ PHOTOLITH OPERATOR onset unknown Tinea pedis* (110.4) Comments: 09/30/2013 PLANNER/SCHEDULER 11:47 ANOOP MESSER PHOTOLITH OPERATOR onset unknown Tinea cruris. (110.3) Comments: 09/30/2013 PLANNER/SCHEDULER 11:47 ANOOP MESSER PHOTOLITH OPERATOR onset unknown. Surgical history: Cystoscopy ([id number]) on 12/26/2009 at 49 Years. Comments: 02/20/2010 08:36 - STEVE ANDREA CNP [place] [facility] / normal PSA, TOTAL SCREENING (G0103) on 12/26/2009 at 49 Years. Comments: 02/20/2010 08:38 - STEVE ANDREA CNP Done at [place] / Result: 1.55 Discectomy ([id number]) on 02/19/1989 at 28 Years. Comments: 12/28/2009 [...] PM This document has images extracted. Source: [facility] POWERCHART Document Id: [id number]} Ana Reeves RPiliN. - 04/14/2015 4:06 PM [...] Comments: 09/30/2013 11:46 - QUEVEDOIKE ROMANICA R PHOTOLITH OPERATOR onset unknown DM II (or NOS), uncontrolled (ICD-9-CM :250.02 ) Name of Problem: DM II (or NOS), uncontrolled ; Onset Date: 12/28/2009 ; Recorder: STEVE ANDREA CNP; Confirmation: Confirmed ; Classification: Medical ; Code: 250.02 ; Contributor System: [employer] ; Last Updated: 07/24/2011 10:45 PLANNER/SCHEDULER ; Life Cycle Date: 12/05/2010 ; Life [...] Comments: 09/30/2013 11:47 - ANOOP QUEVEDO R PHOTOLITH OPERATOR onset unknown Erectile dysfunction* (ICD-9-CM :607.84 ) Name of Problem: Erectile dysfunction* ; Recorder: STEVE ANDREA CNP; Confirmation: Confirmed ; Classification: Medical ; Code: 607.84 ; Contributor System: [employer] ; Last Updated: 12/28/2009 9:40 CDT ; Life Cycle Date: 12/28/2009 ; Life Cycle Status: Active ; Responsible Provider: STEVE ANDREA CNP; Vocabulary: ICD-9-CM ; Comments: 09/30/2013 11:46 - IKE QUEVEDOICA R PHOTOLITH OPERATOR onset unknown Flutter Atrial NOS (ICD-9-CM :427.32 ) Name of Problem: Flutter Atrial NOS ; Recorder: KEVIN KILGORE MD; Confirmation: Confirmed ; Classification: Medical ; Code: 427.32 ; Contributor System: PowerChart ; Last Updated: 07/29/2014 7:02 PLANNER/SCHEDULER ; Life Cycle Status: Active ; Responsible [...] System: PowerChart ; Last Updated: 09/30/2012 15:06 PLANNER/SCHEDULER ; Life Cycle Date: 09/30/2012 ; Life Cycle Status: Active ; Responsible Provider: STEVE ADNREA CNP; Vocabulary: ICD-9-CM ; Comments: 09/30/2012 15:06 [...] Code: 695.89 ; Last Updated: 07/14/2012 14:36 PLANNER/SCHEDULER ; Life Cycle Status: Active ; Responsible [...] System: PowerChart ; Last Updated: 09/05/2010 9:56 PLANNER/SCHEDULER ; Life Cycle Date: 09/05/2010 ; Life [...] Vocabulary: ICD-9-CM ; Comments: 09/30/2013 11:ANOOP ISAAC PHOTOLITH OPERATOR onset unknown Ulcer of skin NOS (ICD-9-CM :707.9 ) Name of Problem: Ulcer of skin NOS ; Recorder: HALEIGH SCHULTZ CNP; Confirmation: Confirmed ; Classification: UPDATE NEEDED ; Code: 707.9 ; Contributor System: PowerChart ; Last Updated: 09/18/2010 8:25 PLANNER/SCHEDULER ; Life Cycle Date: 09/18/2010 ; Life Cycle Status: Active ; Responsible Provider: HALEIGH SCHULTZ CNP; Vocabulary: ICD-9-CM ; Comments: 09/30/2013 11:ANOOP ISAAC PHOTOLITH OPERATOR onset unknown Unspecified Adjustment Reaction (ICD-9-CM :309.9 ) Name of Problem: Unspecified Adjustment Reaction ; Onset Date: 05/05/2013 ; Confirmation: Confirmed ; Classification: Medical ; Code: 309.9 ; Contributor System: [facility]_HX_PR_UPLOAD ; Last Updated: 12/03/2013 18:36 CDT ; Life Cycle Status: Active ; Vocabulary: ICD-9-CM ; Comments: - Unspecified adjustment reaction Urge Incontinence (ICD-9-CM :788.31 ) Name of Problem: Urge Incontinence ; Recorder: STEVE ANDREA; Confirmation: Confirmed ; Classification: Medical ; Code: 788.31 ; Contributor System: [employer] ; Last Updated: 02/20/2010 8:39 CDT ; Life Cycle Date: 02/20/2010 ; Life Cycle Status: Active ; Responsible Provider: STEVE ANDREA CNP; Vocabulary: ICD-9-CM ; Comments: 09/30/2013 11:46 - ANOOP QUEVEDO PHOTOLITH OPERATOR onset unknown Diagnoses(Active) Rib/trunk pain-swelling Date: 04/14/2015 ; Diagnosis Type: Reason For Visit ; Confirmation: Complaint of ; Clinical Dx: Rib/trunk pain-swelling ; Classification: Medical ; Clinical Service: Emergency medicine ; Code: PNED ; Probability: 0 ; Diagnosis Code: [id number] Triage Chief Complaint Description : has had pain in ribs on both side that started thursday night after a massage ANA REEVES RN - 04/14/2015 16:15 CDT Mode of Arrival ED : Private vehicle Track : Medical Languages : German Patient Informed of Triage Location : Emergency [...] ERIN DCP GENERIC CODE Tracking Group : [facility] ED Tracking Acuity : 3 -Urgent [...] REEVES RN - 04/14/2015 16:15 CDT Source: [employer] Document Id: [id number] CDT!5 documented in this encounter Miscellaneous Notes Miscellaneous - Ana Reeves, R.N. - 04/14/2015 5:34 PM CDT Valuables/Belongings Valuables/Belongings Entered On: 04/14/2015 17:34 CDT Performed On: 04/14/2015 17:34 CDT by ANA REEVES RN Valuables/Belongings Home Medication Disposition : None brought in with patient ANA REEVES RN - 04/14/2015 17:34 CDT Source: [facility] [employer] Document Id: [id number] CDT!3 Miscellaneous - Conversion, Historical Provider Ser - 04/14/2015 5:28 PM CDT Coding Summary-Paper Based CODING DATE: 04/16/[address] [facility] STATUS: * [...] HEREDIA Date Saved: 04/16/2015 09:43 am Source: [employer] Document Id: [id number] Miscellaneous - Ana Reeves, R.N. - 04/14/2015 [...] Control : 6 Lynx Visit Level : 51361 Level 3 Treatments Prior to Arrival : None ANA REEVES RN - 04/14/2015 17:34 CDT Source: [facility] [employer] Document Id: [id number] CDT!18 documented in this encounter Plan of Treatment Not on filedocumented as of this encounter Visit Diagnoses Not on filedocumented in this encounter Additional Health Concerns Assessment Noted Time PHQ-9 Depression Total Score: 18 02/14/2013 9:53 AM CD T documented as of this encounter
--- OUTSIDE RECORDS SUMMARY | 2022-08-19 10:33 | XMS_ITS | Encounter Summary ---
:1960 Author Organization [facility] Address [address] [place] [address] Care Team Providers Name Role Phone Unavailable Primary Care Provider Unavailable Encounter Details Date Type Department Care Team Description 12/18/2014 Hospital Encounter HX [facility] Cintia Aguirre M.D. [address] [place] [phone] (Wo rk) Social History Tobacco Use [...] will be informing the kidney specialist in [place]. Electronically Signed By: KEYLA PATE LPN On: 12/18/2014 03:17 PM Source: [facility] [employer] Document Id: [id number] documented in this encounter Miscellaneous Notes Miscellaneous [...] 11:23:27 CDT From: SHIRLENE ABBOTT RN To: MA Family Medicine Nurse Bennett; Sent: 01/03/2015 11:23:27 CDT Subject: 5-5-15 From: SHIRLENE ABBOTT RN To: SHIRLENE ABBOTT RN; Sent: 01/03/2015 11:22:52 CDT Subject: *General Message Pt has appt on January 09. [facility] pharmacy would like updated scripts on anything we will be filling, pt reports different directions on Lisinopril, HCTZ and Amlodipine. Checked Synthesis but not sure who prescribed. Source: [facility] POWERCHART Document Id: [id number] Miscellaneous - Shawnee Haji L.PPiliNPili - 12/18/2014 [...] HAJI LPN - 12/18/2014 11:59 CDT Source: [facility] Document Id: [id number] CDT!16 documented in this encounter Plan of Treatment Not on filedocumented as of this encounter Visit Diagnoses Not on filedocumented in this encounter Additional Health Concerns Assessment Noted Time PHQ-9 Depression Total Score: 18 02/14/2013 9:53 AM CD T documented as of this encounter
--- OUTSIDE RECORDS SUMMARY | 2022-08-19 10:33 | XMS_ITS | Encounter Summary ---
:1960 Author Organization [facility] Address [address] [place] [address] Care Team Providers Name Role Phone Unavailable Primary Care Provider Unavailable Encounter Details Date Type Department Care Team Description 01/16/2015 Hospital Encounter [facility] Cintia Jorgensen M.D. [address] [place] [phone] (Wo rk) Social History Tobacco Use [...] Refills: 1 Substitutions Allowed Route To Pharmacy [id number] Signed by CINTIA KILGORE MD 02/06/2015 16:03:30 From: OLIVIA BECERRA V To: CINTIA KILGORE MD; OLIVIA BECERRA V; Sent: 02/06/2015 10:11:39 CDT Subject: Med Management On hold pending signature Order:metoprolol (Metoprolol Tartrate 25 mg oral tablet) 0.5 tab(s) PO 2xDay Qty: 90 tab(s) Duration: 90 day(s) Refills: 1 Substitutions Allowed Route To [id number] Documented Discontinue:metoprolol (Metoprolol Tartrate) Signed by OLIVIA BECERRA V 02/06/2015 10:09:27 Pt seen 01/09. BP was 144/87. Had nurse BP visit 01/16 w/ BP 158/82 & 149/87. Unclear if dosing forthis is to be changed. Had been 25mg BID prior to surgery. Now 12.5 mg BID. Please advise Source: [facility] POWERCHART Document Id: [id number] Miscellaneous - Shawnee Haji, L.P.N. - 01/16/2015 5:09 PM CDT Ambulatory Vitals Height Weight Ambulatory Vitals Height Weight Entered On: 01/16/2015 17:09 CDT Performed On: 01/16/2015 17:09 CDT by SHAWNEE HAJI CAR HOP Vitals/Ht/Wt Systolic Blood Pressure : 149 mmHg (HI) Diastolic Blood Pressure : 87 mmHg NIBP Mean : 108 mmHg BP Location : Right upper extremity Blood Pressure Cuff Size : Large Height : 185 cm(Converted to: 6 ft 1 inch(es), 73 inch(es)) SHAWNEE HAJI LPN - 01/16/2015 17:09 CDT Source: [employer] Document Id: [id number] CDT!8 Miscellaneous - Shawnee Haji LPiliP.N. - [...] HAJI LPN - 01/16/2015 16:26 CDT Source: [employer] Document Id: [id number] CDT!7 documented in this encounter Plan of Treatment Not on filedocumented as of this encounter Visit Diagnoses Not on filedocumented in this encounter Additional Health Concerns Assessment Noted Time PHQ-9 Depression Total Score: 18 02/14/2013 9:53 AM CD T documented as of this encounter
--- OUTSIDE RECORDS SUMMARY | 2022-08-19 10:33 | XMS_ITS | Encounter Summary ---
:1960 Author Organization [facility] Address [address] [place] [address] Care Team Providers Name Role Phone Unavailable Primary Care Provider Unavailable Encounter Details Date Type Department Care Team Description 12/25/2014 Hospital Encounter [facility]X [facility] Cintia Cobb M.D. [address] [place] [phone] (Wo rk) Social History Tobacco Use [...] 2014 15:19:35 CDT From: OLIVIA BECERRA V (IA Family Medicine Nurse Bennett) To: CINTIA KILGORE [...] Lvl 9.7 mg/dL (8.6 - 10.0) Source: [facility] POWERCHART Document Id: [id number] Electronically signed by Conversion, [facility] Music Therapist [id number] at 02/01/2017 4:56 PM CDT Miscellaneous - Conversion, Historical Provider Ser - 12/25/2014 11:59 PM CDT Coding Summary-Paper Based CODING DATE: 12/28/[address] [facility] STATUS: * Discharged to Home or [...] Revised Date Saved: 12/28/2014 10:54 am Source: [facility] [employer] Document Id: [id number] documented in this encounter Plan of Treatment [...] POWERCHART MMOLL HXeGFR (MDRD) >60 >=60 POWERCHART [id number] eGFR >60 >=60 POWERCHART Black/ [id number] Czech Specimen (Source) Anatomical Collection Method Collection Time [...]
--- OUTSIDE RECORDS SUMMARY | 2022-08-19 10:33 | XMS_ITS | Encounter Summary ---
:1960 Author Organization [facility] Address [address] [place] [address] Care Team Providers Name Role Phone Unavailable Primary Care Provider Unavailable Encounter Details Date Type Department Care Team Description 05/12/2015 Hospital Encounter HX [facility] ED Jessika Mehta , P.A.-C. [address] [place] [address] [phone] (Wo rk) Social History Tobacco [...] 05/12/2015 12:13 PM CDT ED Discharge Instructions [address] [address] Name: NOEMÍ LUNA Date of : 1960 12:00 AM Visit Date: 05/12/2015 9:24 AM [facility] Number: [id number] Address: P.Andrew Camp [address] [place] [phone] Primary Care Provider: KEVIN KILGORE MD IMPORTANT: [facility] in [place] would like to thank you for allowing [...] dont have one. Go to [email or web address] and click on Create Your Account. Then, follow the directions to complete the online form. Youll be asked for your [facility] number which you can find at the top of this document. ED Tests and Procedures: Order Status Culture Urine Ordered Helicobacter pylori IgG Ab-[facility] Ordered Thyroid Stimulating Hormone Completed CBC (includes [...] a ride home with a responsible libertarian. ICARLYLE ED J , or responsible libertarian have received this information and my questions have been answered. I have discussed any challenges I see with this plan with the nurse or physician. Patient Signature or Responsible Green Party/Relationship Date Time Provider Signature Date Time Source: [facility] [employer] Document Id: [id number] Mark Thakkar R.N. - 05/12/2015 12:13 PM CDT ED Depart Summary [facility] Emergency Department Clinical Discharge Summary PERSON INFORMATION Name CARLYLE NOEMÍ Jim Age 54 Years 1960 12:00 AM Sex Male Language South African PCP KEVIN KILGORE MD Marital Status Visit Id Visit Reason Weakness or fatigue; Hyperglycemia; personal Specialty Enc Type Emergency Med Service Emergency Medicine Referred by Track Group [facility] ED Discharge 05/12/2015 12:13 PM Tracking Id [id number] Checkout 05/12/2015 12:13 PM Checkin 05/12/2015 9:24 AM Acuity 3 -Urgent Dispo Type Left Against Medical Advice Arrival 05/12/2015 9:24 AM Reg Status Complete LOS 000 02:49 Address: [address] [place] [phone] Comment: PROVIDER INFORMATION Provider Role Provider Contact Time JESSIKA RICO ED Provider 05/12/15 09:42 MARK THAKKAR SPINNER FIXER Nurse 05/12/15 10:21 DIAGNOSIS Anemia NOS; Bleeding Gastrointestinal (GI) Obscure; Diabetes Mellitus Type 2; Gastritis NOS Comment: PATIENT EDUCATION INFORMATION Instructions: Follow up: Source: [employer] Document Id: [id number] documented in this encounter ED Notes Mark [...] HERCULES RN - 05/12/2015 12:00 CDT Source: [employer] Document Id: [id number] CDT!8 Mark Thakkar R.N. - 05/12/2015 12:00 PM CDT ED Pain Assessment ED Pain Assessment Entered On: 05/12/2015 12:00 CDT Performed On: 05/12/2015 12:00 CDT by MARK THAKKAR RN Pain Assessment Pain Symptoms : Yes MARK THAKKAR RN - 05/12/2015 12:00 CDT Source: [facility] POWERCHART Document Id: [id number] CDT!3 Mark Thakkar R.N. - 05/12/2015 9:48 [...] Medical ; Code: 600.00 ; Contributor System: [employer] ; Last Updated: 02/15/2010 10:00 CDT ; [...] Medical ; Code: 250.02 ; Contributor System: Open-X[employer] ; Last Updated: 07/24/2011 10:45 PEDIATRIC OCCUPATIONAL THERAPIST ; Life Cycle Date: 12/05/2010 ; Life [...] System: PowerChart ; Last Updated: 07/29/2014 7:02 PEDIATRIC OCCUPATIONAL THERAPIST ; Life Cycle Status: Active ; Responsible [...] System: PowerChart ; Last Updated: 09/30/2012 15:06 PEDIATRIC OCCUPATIONAL THERAPIST ; Life Cycle Date: 09/30/2012 ; Life Cycle Status: Active ; Responsible Provider: STEVE ANDREA CNP; Vocabulary: ICD-9-CM ; Comments: 09/30/2012 15:06 - STEVE ANDREA CNP left Genital warts (ICD-9-CM :078.19 ) Name of Problem: Genital warts ; Recorder: MARILUZ FRAGA MD; Confirmation: Confirmed ; Classification: UPDATE NEEDED ; Code: 078.19 ; Contributor System: [employer]; Last Updated: 02/11/2013 16:19 CDT ; Life [...] ; Onset Date: 12/28/2009 ; Recorder: STEVE NADREA CNP; Confirmation: Confirmed ; Classification: Medical ;Code: 401.9 ; Last Updated: 12/28/2009 9:39 CDT ; Life Cycle Status: Active ; Responsible Provider: STEVE ANDREA CNP; Vocabulary: ICD-9-CM Intertrigo. (ICD-9-CM :695.89 ) Name of Problem: Intertrigo. ; Onset Date: 07/14/2012 ; Recorder: MARILUZ FRAGA MD; Confirmation: Confirmed ; Classification: UPDATE NEEDED ; Code: 695.89 ; Last Updated: 07/14/2012 14:36 PEDIATRIC OCCUPATIONAL THERAPIST ; Life Cycle Status: Active ; Responsible [...] System: PowerChart ; Last Updated: 09/05/2010 9:56 PEDIATRIC OCCUPATIONAL THERAPIST ; Life Cycle Date: 09/05/2010 ; Life Cycle Status: Active ; Responsible Provider: STEVE ANDREA CNP; Vocabulary: ICD-9-CM ; Comments: 09/30/2013 11:ANOOP ISAAC COMMUNICATIONS REPRESENTATIVE onset unknown Optic disc cupping (ICD-9-CM :377.14 [...] Vocabulary: ICD-9-CM ; Comments: 09/30/2013 11:ANOOP ISAAC COMMUNICATIONS REPRESENTATIVE onset unknown Ulcer of skin NOS (ICD-9-CM :707.9 ) Name of Problem: Ulcer of skin NOS ; Recorder: HALEIGH SCHULTZ CNP; Confirmation: Confirmed ; Classification: UPDATE NEEDED ; Code: 707.9 ; Contributor System: [employer] ; Last Updated: 09/18/2010 8:25 PEDIATRIC OCCUPATIONAL THERAPIST ; Life Cycle Date: 09/18/2010 ; Life Cycle Status: Active ; Responsible Provider: HALEIGH SCHULTZ CNP; Vocabulary: ICD-9-CM ; Comments: 09/30/2013 11:Kenneth Valdivia QUEVEDOANOOP ROMAN COMMUNICATIONS REPRESENTATIVE onset unknown Unspecified Adjustment Reaction (ICD-9-CM :309.9 ) Name of Problem: Unspecified Adjustment Reaction ; Onset Date: 05/05/2013 ; Confirmation: Confirmed ; Classification: Medical ; Code: 309.9 ; Contributor System: [facility]_HX_PR_UPLOAD ; Last Updated: 12/03/2013 18:36 CDT ; Life Cycle Status: Active ; Vocabulary: ICD-9-CM ; Comments: - Unspecified adjustment reaction Urge Incontinence (ICD-9-CM :788.31 ) Name of Problem: Urge Incontinence ; Recorder: STEVE ANDREA; Confirmation: Confirmed ; Classification: Medical ; Code: 788.31 ; Contributor System: [employer] ; Last Updated: 02/20/2010 8:39 CDT ; Life Cycle Date: 02/20/2010 ; Life Cycle Status: Active ; Responsible Provider: STEVE ANDREA CNP; Vocabulary: ICD-9-CM ; Comments: 09/30/2013 11:46 Shea QUEVEDOROHITANOOP R COMMUNICATIONS REPRESENTATIVE onset unknown Diagnoses(Active) Hyperglycemia Date: 05/12/2015 ; Diagnosis Type: Reason For Visit ; Confirmation: Complaint of ; Clinical Dx: Hyperglycemia ; Classification: Medical ; Clinical Service: Emergency medicine ; Code: PNED; Probability: 0 ; Diagnosis Code: [id number] Weakness or fatigue Date: 05/12/2015 ; Diagnosis Type: Reason For Visit ; Confirmation: Confirmed ; Clinical Dx: Weakness or fatigue ; Classification: Medical ; Clinical Service: Emergency medicine ; Code: PNED ; Probability: 0 ; Diagnosis Code: [id number] Triage Chief Complaint Description : see triage Information Given By : Patient Accompanied By : Alone Mode of Arrival ED : Private vehicle Track : Medical Languages : South African Patient Informed of Triage Location : Emergency [...] : 3 -Urgent Tracking Group : [facility] ED MARK THAKKAR RN - 05/12/2015 9:48 CDT Allergy (As Of: 05/12/2015 10:02:57 CDT) Allergies (Active) Cipro Estimated Onset Date: Unspecified ; Created By: STEVE ANDREA CNP; Reaction Status: Active ;Category: Drug ; Substance: Cipro ; Type: Allergy ; Updated By: STEVE ANRDEA CNP; Reviewed Date: 05/12/2015 9:48 CDT Influenza [...] THAKKAR RN - 05/12/2015 9:48 CDT Source: [facility] POWERCHART Document Id: [id number] CDT!77 Jessika Mehta P.A.-C. - 05/12/2015 9:45 [...] on 09/29/2012 at 52 years. Comments: 09/30/2012 PEDIATRIC OCCUPATIONAL THERAPIST 15:06 PEDIATRIC OCCUPATIONAL THERAPIST - STEVE ANDREA BUSHLER left Genital warts (078.19) Comments: 09/30/2013 PEDIATRIC OCCUPATIONAL THERAPIST 11:47 PEDIATRIC OCCUPATIONAL THERAPIST - QUEVEDO, ANOOP R COMMUNICATIONS REPRESENTATIVE onset unknown Tinea pedis* (110.4) Comments: 09/30/2013 PEDIATRIC OCCUPATIONAL THERAPIST 11:47 PEDIATRIC OCCUPATIONAL THERAPIST - ANOOP QUEVEDO COMMUNICATIONS REPRESENTATIVE onset unknown Tinea cruris. (110.3) Comments: 09/30/2013 PEDIATRIC OCCUPATIONAL THERAPIST 11:47 PEDIATRIC OCCUPATIONAL THERAPIST ANOOP GONZALEZ COMMUNICATIONS REPRESENTATIVE onset unknown. Surgical history: Cystoscopy ([id number]) on 12/26/2009 at 49 Years. Comments: 02/20/2010 08:36 - STEVE ANDREA BUSHLER [place] [facility] / normal PSA, TOTAL SCREENING (G0103) on 12/26/2009 at 49 Years. Comments: 02/20/2010 08:38 - STEVE ANDREA BUSHLER Done at [place] / Result: 1.55 Discectomy ([id number]) on 02/19/1989 at 28 Years. Comments: 12/28/2009 09:38 STEVE WELSH BUSHLER lumbar L4-L5. Family history: Diabetes mellitus Mother [...] Once, Launch Orders Laboratory: Helicobacter pylori IgG Ab-[facility] (Order Processing): Stat, 05/12/2015 10:48 CDT, Once, [...] Absolute 4.64 10(9)/L Lymph Absolute 1.63 x10(9)/L [place] Absolute 0.58 x10(9)/L Eos Absolute 0.15 x10(9)/L [...] AMA. Disposition: Discharged: Left AMA. Prescriptions: Prescription [facility]: PriLOSEC 40 mg oral delayed release [...] MCNEILL MD On: 05/12/2015 01:57 PM Source: [facility] POWERCHART Document Id: [id number]} Mark Thakkar R.N. - 05/12/2015 9:33 AM [...] Medical ; Code: 600.00 ; Contributor System: [employer] ; Last Updated: 02/15/2010 10:00 CDT ; Life Cycle Date: 02/15/2010 ; Life Cycle Status: Active ; Responsible Provider: STEVE ANDREA CNP; Vocabulary: ICD-9-CM ; Comments: 09/30/2013 11:46 - AONOP QUEVEDO LPN onset unknown DM II (or NOS), uncontrolled (ICD-9-CM :250.02 ) Name of Problem: DM II (or NOS), uncontrolled ; Onset Date: 12/28/2009 ; Recorder: STEVE ANDREA CNP; Confirmation: Confirmed ; Classification: Medical ; Code: 250.02 ; Contributor System: Power[employer] ; Last Updated: 07/24/2011 10:45 PEDIATRIC OCCUPATIONAL THERAPIST ; Life Cycle Date: 12/05/2010 ; Life [...] System: PowerChart ; Last Updated: 07/29/2014 7:02 PEDIATRIC OCCUPATIONAL THERAPIST ; Life Cycle Status: Active ; Responsible [...] System: PowerChart ; Last Updated: 09/30/2012 15:06 PEDIATRIC OCCUPATIONAL THERAPIST ; Life Cycle Date: 09/30/2012 ; Life [...] Comments: 09/30/2013 11:47 - QUEVEDO ANOOP Mora COMMUNICATIONS REPRESENTATIVE onset unknown Hyperlipidemia (ICD-9-CM :272.4 ) Name [...] Code: 695.89 ; Last Updated: 07/14/2012 14:36 PEDIATRIC OCCUPATIONAL THERAPIST ; Life Cycle Status: Active ; Responsible [...] System: PowerChart ; Last Updated: 09/05/2010 9:56 PEDIATRIC OCCUPATIONAL THERAPIST ; Life Cycle Date: 09/05/2010 ; Life Cycle Status: Active ; Responsible Provider: STEVE ANDREA CNP; Vocabulary: ICD-9-CM ; Comments: 09/30/2013 11:ANOOP ISAAC R COMMUNICATIONS REPRESENTATIVE onset unknown Optic disc cupping (ICD-9-CM :377.14 [...] Medical ; Code: 110.3 ; Contributor System: [employer] ; Last Updated: 06/01/2013 9:06 CDT ; Life Cycle Date: 06/01/2013 ; Life Cycle Status: Active ; Responsible Provider: MARILUZ FRAGA MD; Vocabulary: ICD-9-CM ; Comments: 09/30/2013 11:IKE ISAACICA RLPN onset unknown Tinea pedis* (ICD-9-CM :110.4 ) Name of Problem: Tinea pedis* ; Recorder: MARILUZ FRAGA MD; Confirmation: Confirmed ; Classification: Medical ; Code: 110.4 ; Contributor System: [employer] ; Last Updated: 02/02/2014 8:24 CDT ; Life Cycle Date: 06/01/2013 ; Life Cycle Status: Active ; Responsible Provider: MARILUZ FRAGA MD; Vocabulary: ICD-9-CM ; Comments: 09/30/2013 11:IKE ISAACICA R COMMUNICATIONS REPRESENTATIVE onset unknown Ulcer of skin NOS (ICD-9-CM :707.9 ) Name of Problem: Ulcer of skin NOS ; Recorder: HALEIGH SCHULTZ CNP; Confirmation: Confirmed ; Classification: UPDATE NEEDED ; Code: 707.9 ; Contributor System: [employer] ; Last Updated: 09/18/2010 8:25 PEDIATRIC OCCUPATIONAL THERAPIST ; Life Cycle Date: 09/18/2010 ; Life Cycle Status: Active ; Responsible Provider: HALEIGH SCHULTZ CNP; Vocabulary: ICD-9-CM ; Comments: 09/30/2013 11:47 - ANOOP QUEVEDO COMMUNICATIONS REPRESENTATIVE onset unknown Unspecified Adjustment Reaction (ICD-9-CM :309.9 ) Name of Problem: Unspecified Adjustment Reaction ; Onset Date: 05/05/2013 ; Confirmation: Confirmed ; Classification: Medical ; Code: 309.9 ; Contributor System: [facility]_HX_PR_UPLOAD ; Last Updated: 12/03/2013 18:36 CDT ; Life Cycle Status: Active ; Vocabulary: ICD-9-CM ; Comments: - Unspecified adjustment reaction Urge Incontinence (ICD-9-CM :788.31 ) Name of Problem: Urge Incontinence ; Recorder: STEVE ANDREA; Confirmation: Confirmed ; Classification: Medical ; Code: 788.31 ; Contributor System: [employer] ; Last Updated: 02/20/2010 8:39 CDT ; Life Cycle Date: 02/20/2010 ; Life Cycle Status: Active ; Responsible Provider: STEVE ANDREA CNP; Vocabulary: ICD-9-CM ; Comments: 09/30/2013 11:46 - ANOOP QUEVEDO COMMUNICATIONS REPRESENTATIVE onset unknown Diagnoses(Active) Hyperglycemia Date: 05/12/2015 ; Diagnosis Type: Reason For Visit ; Confirmation: Complaint of ; Clinical Dx: Hyperglycemia ; Classification: Medical ; Clinical Service: Emergency medicine ; Code: PNED; Probability: 0 ; Diagnosis Code: [id number] Triage Chief Complaint Description : 54 yo male presents to the ED via private vehicle with c/o feeling more fatigue, c/o having high blood surgar levels 120-130's, and intermittent dizziness. Information Given By : Patient Accompanied By : Alone Mode of Arrival ED : Private vehicle Track : Medical Languages : South African Vital Signs Assessed : Yes GCS Assessed [...] 9:33 CDT Lois Coma Eye Opening Response [place] : Spontaneously Best Verbal Response Lois : Oriented Best Motor Response Lois : Obeys simple commands [place] Coma Score : 15 MARK THAKKAR RN [...] : 3 -Urgent Tracking Group : [facility] ED MARK THAKKAR RN - 05/12/2015 [...] THAKKAR RN - 05/12/2015 9:33 CDT Source: [employer] Document Id: [id number] CDT!58 documented in this encounter Miscellaneous Notes Miscellaneous - Conversion, Historical Provider Ser - 05/12/2015 12:13 PM CDT Coding Summary-Paper Based CODING DATE: 05/21/2015 FINAL [facility] STATUS: Left Against Medical Advice [...] HEREDIA Date Saved: 05/21/2015 04:09 pm Source: [employer] Document Id: [id number] [place] - Mark Thakkar R.N. - 05/12/2015 12:00 PM CDT Valuables/Belongings Valuables/Belongings Entered On: 05/12/2015 12:01 CDT Performed On: 05/12/2015 12:00 CDT by MARK THAKKAR RN Valuables/Belongings Belongings Sent Home With : ALL BELONGINGS SENT HOME WITH PATIENT Home Medication Disposition : None brought in with patient MARK THAKKAR RN - 05/12/2015 12:00 CDT [facility] Document Id: [id number] CDT!4 Miscellaneous - Mark Thakkar R.N. - [...] Control : 13 Lynx Visit Level : 87263 Level 5 Treatments Prior to Arrival : None MARK THAKKAR RN - 05/12/2015 12:01 CDT Chief Complaint 11.0 Reason For Visit Category : Gastrointestinal TVL Calculation : 12 ED Chief Complaint Gastrointestinal 11.0 : Abdominal pain TVL for Facility Charge Ticket Dx : Level 4 MARK THAKKAR RN - 05/12/2015 12:01 CDT [facility] Document Id: [id number] CDT!23 documented in this encounter Plan of [...] - 139 POWERCHART B MGDL Comment: AnalyzedBy [id number] Ariane Tovar Performed at Med Surg [address] [facility] [address] [place], [place] ??[address] Specimen Anatomical Collection Method Collection Time Receive d Time (Source) Location / / Volume Laterality Blood 05/12/2015 11:57 05/12/2015 AM CDT 11:57 AM CDT Jessika Mehta P.A.-C. LAB POCT ORDERABLES-MANUAL Performing Organization Address City/State/ZIP Code Phon e Number POWERCHART (ABNORMAL) Urinalysis, Complete, Includes Microscopic (05/12/2015 11:18 AM CDT) [facility] gist Method Time Signature HXUr Color Yellow Colorless POWERCHART Clarity Clear Clear POWERCHART Glucose Negative Negative POWERCHART MGDL HXBILIRUBIN Small (A) Negative POWERCHART Ketones, QL(U) Trace (A) Negative POWERCHART MGDL Specific 1.015 POWERCHART Ivins, POCT, U pH, POCT, Urine 5.0 <5.0 [...] Phon e Number POWERCHART HELICOBACTER PYLORI IGG [facility] (05/12/2015 10:50 AM CDT) athologist Signature HXH pylori Negative Negative POWERCHART IgG-Catherine HXH pylori IgG 3.21 POWERCHART Idx-Catherine Comment: Results with Index Values of <8.95 are n egative. Test Performed by: [address] Buyer: Rene Gomez II, M.D., Ph.D. Specimen (Source) Anatomical Collection Method Collection Time Re ceived Time Location / / Volume Laterality Blood 05/12/2015 10:50 AM CDT Jessika Mehta P.A.-C. LAB HISTORICAL ORDERS Performing Organization Address City/[facility]/ZIP Code Phon e Number POWERCHART Automated [...] P.A.-C. LAB BLOOD ADD-ON Performing Organization Address City/[facility] Code Phon e Number POWERCHART (ABNORMAL) CBC with Differential (05/12/2015 10:25 AM CDT) [facility] gist Method Time Signature HXDifferential? Auto POWERCHART Leukocytes 7.0 3.5 - 10.5 POWERCHART X109L Erythrocytes 2.65 (L) 4.32 - POWERCHART 5.72 C7023T Hemoglobin 8.3 (L) 13.5 - POWERCHART 17.5 [...] Simons. LAB BLOOD ADD-ON Performing Organization Address City/[facility]/ZIP Code Phon e Number POWERCHART (ABNORMAL) CMP (Comprehensive Metabolic Panel) (05/12/2015 10:25 AM CDT) [facility] gist Method Time Signature Anion Gap [...] POWERCHART GDL HXeGFR (MDRD) >60 >=60 POWERCHART [id number] 2 eGFR Black/ >60 >=60 POWERCHART Cambodian [id number] 2 Specimen (Source) Anatomical Collection Method Collection Time Re ceived Time Location / / Volume Laterality Blood 05/12/2015 10:25 AM CDT Jessika Mehta P.A.-C. LAB BLOOD ADD-ON Performing Organization Address City/State/ZIP Code Phon e Number POWERCHART (ABNORMAL) Glucose, POCT (05/12/2015 9:31 AM CDT) athologist Signature Glucose, POCT, 193 (H) 70 - 139 POWERCHART B MGDL Comment: AnalyzedBy [id number] Ariane Tovar Performed at Med Surg [address] [place] [address] [place], [place] ??[address] Specimen Anatomical Collection Method Collection Time Receive [...]
--- OUTSIDE RECORDS SUMMARY | 2022-08-19 10:33 | XMS_ITS | Encounter Summary ---
:[address] [facility] Address [address] [place] [address] Care Team Providers Name Role Phone Unavailable Primary Care Provider Unavailable Encounter Details Date Type Department Care Team Description 01/04/2015 Hospital Encounter [facility]X [facility] Cintia lindquist M.D. [address] [place] [phone] (Wo rk) Social History Tobacco Use [...] 01/04/2015 10:41 CDT by ANNE MARIE TUTTLE FIELD SPEC, RT Vitals/Ht/Wt Systolic Blood Pressure : 124 [...] LPN, RT - 01/04/2015 10:41 CDT Source: [employer] Document Id: [id number] CDT!12 documented in this encounter Plan of Treatment Not on filedocumented as of this encounter Visit Diagnoses Not on filedocumented in this encounter Additional Health Concerns Assessment Noted Time PHQ-9 Depression Total Score: 18 02/14/2013 9:53 AM CD T documented as of this encounter
--- OUTSIDE RECORDS SUMMARY | 2022-08-19 10:33 | XMS_ITS | Encounter Summary ---
:1960 Author Organization [facility] Address [address] [place] [address] Care Team Providers Name Role Phone Unavailable Primary Care Provider Unavailable Encounter Details Date Type Department Care Team Description 03/24/2015 Hospital Encounter HX [facility] Cintia Cobb M.D. [address] [place] [phone] (Wo rk) Social History Tobacco Use [...] 5.5 % A1C ( - <=5.6) Source: [facility] POWERCHART Document Id: [id number] Electronically signed by Conversion, [facility] Cassandra Developer [id number] at 02/01/2017 11:35 PM CDT documented in [...]
--- OUTSIDE RECORDS SUMMARY | 2022-08-19 10:33 | XMS_ITS | Encounter Summary ---
:1960 Author Organization [facility] Address [address] [place] [address] Care Team Providers Name Role Phone Unavailable Primary Care Provider Unavailable Encounter Details Date Type Department Care Team Description 12/25/2014 Hospital Encounter [facility] Cintia lindquist M.D. [address] [place] [phone] (Wo rk) Social History Tobacco Use [...] 04, 2017 08:05:05 CDT From: ANGEL NGUYEN ([place] Family Medicine Nurse Guajardo) To: CINTIA BULLOCK MD; Sent: 05/04/2017 08:05:05 CDT Subject: BP readings Addendum by ANGEL NGUYEN on May 04, 2017 08:04:48 CDT BP access: [employer], select bp tracker hyperlink in the middle of the page, enter patient's access codeof [id number], month 10, year 1959. This will bring you to a snap shot of bp readings. From: MICHAEL GAITAN To: [place] Family Medicine Nurse Guajardo; Sent: 05/02/2017 17:53:29 CDT Subject: *Phone Message Caller is: ( x ) Patient ( ) Mother ( ) Father ( ) Spouse ( ) Daughter ( ) Son ( ) Pharmacy ( ) Other: Physician: Pato Patient MRN #: Reason for Call: BP Readings Message: Patient called in to give the following BP readings: [facility]02[facility]17 [facility]pm [facility] - 05/02/17 [facility] 5:15 66/41. Patient states all are normal and would like you to view his readings at [facility] as he has advised to before. Advice/Action: [...] back cell phone number ( ) Source: [facility] POWERCHART Document Id: [id number] Miscellaneous - Rosetta Ramirez L.PPiliN. - 12/25/2014 [...] RAMIREZ LPN - 12/25/2014 13:28 CDT Source: [employer] Document Id: [id number] CDT!9 Miscellaneous - Rosetta Ramirez L.P.N. - [...] RAMIREZ LPN - 12/25/2014 13:19 CDT Source: [employer] Document Id: [id number] CDT!12 documented in this encounter Plan of Treatment Not on filedocumented as of this encounter Visit Diagnoses Not on filedocumented in this encounter Additional Health Concerns Assessment Noted Time PHQ-9 Depression Total Score: 18 02/14/2013 9:53 AM CD T documented as of this encounter
--- OUTSIDE RECORDS SUMMARY | 2022-08-19 10:33 | XMS_ITS | Encounter Summary ---
:1960 Author Organization [facility] Address [address] [place] [address] Care Team Providers Name Role Phone Unavailable Primary Care Provider Unavailable Encounter Details Date Type Department Care Team Description 12/18/2014 Hospital Encounter [facility] Song Cintia Copeland M.D. [address] [place] [phone] (Wo rk) Social History Tobacco Use [...] Coding Summary-Paper Based CODING DATE: 12/26/2014 FINAL [facility] STATUS: * Discharged to Home or [...] BLISS Date Saved: 12/26/2014 01:48 pm Source[facility] Document Id: [id number] Miscellaneous - Shawnee Haji, L.P.N. - 12/12/2014 3:09 PM CDT *General Message Document Contains Addenda Addendum by VINEET RAMIREZ LPN on 13 December 2014 14:53:34 CDT mailed note below to pt. Phone does not have voice mail.< Addendum by CINTIA KILGORE MD on 13 December 2014 13:44:56 CDT From: CINTIA KILGORE MD To: [place] Family [facility] Nurse Guajardo; Sent: 12/13/2014 13:44:56 CDT Subject: RE: *General Message Vitamin B was sent to the pharmacy at his last visit. He does not need Vitamin D. THanksCintia From: SHAWNEE HAJI LPN ([facility] Medicine Nurse Guajardo) To: CINTIA KILGORE MD; Sent: 12/12/2014 15:09:50 CDT Subject: *General Message Ed was looking for prescriptions for his B12 and his vitamin D3. His says he doesn't need to take the vitamin D due to his Flinistone vitamins have vitamin D in them? Source: [facility] Document Id: [id number] Electronically signed by Conversion, [facility] Manufacturing Recruiter [id number] at 02/01/2017 3:36 PM CDT documented in this encounter Plan of Treatment Not on filedocumented as of this encounter Procedures Procedure Name Priority Date/Time Associated Diagnosis Comme nts BASIC METABOLIC Routine 12/18/2014 12:50 PM Resul ts for this PANEL, S/P CDT procedure are i n the results section. documented in this encounter Results (ABNORMAL) BMP (Basic Metabolic Panel) (12/18/2014 12:50 PM CDT) [facility] gist Method Time Signature Anion Gap 15 [...] MMOLL HXeGFR (MDRD) 28 (L) >=60 POWERCHART [id number] eGFR 34 (L) >=60 POWERCHART Black/ [id number] [place] Specimen (Source) Anatomical Collection Method Collection Time [...]
--- OUTSIDE RECORDS SUMMARY | 2022-08-19 10:33 | XMS_ITS | Encounter Summary ---
:1960 Author Organization [facility] Address [address] [place] [address] Care Team Providers Name Role Phone Unavailable Primary Care Provider Unavailable Encounter Details Date Type Department Care Team Description 03/24/2015 Hospital Encounter [facility]X [facility] Cintia Aguirre M.D. [address] [place] [phone] (Wo rk) Social History Tobacco Use [...] TALI TORRES On: 03/24/2015 10:48 AM Source: [facility] POWERCHART Document Id: [id number] documented in this encounter Miscellaneous Notes Miscellaneous [...] on any further orders Thanks Anoop Source[facility] Document Id: [id number] Electronically signed by Dayami [facility] Longoria [id number] at 02/01/2017 11:35 PM CDT Miscellwalter - [...] MUJICA LPN - 03/24/2015 11:42 CDT Source: [employer] Document Id: [id number] CDT!10 Lulycellaneous - Anoop Mujica L.P.NPili - [...] MUJICA LPN - 03/24/2015 10:27 CDT Source: [employer] Document Id: [id number] CDT!15 documented in this encounter Plan of Treatment Not on filedocumented as of this encounter Visit Diagnoses Not on filedocumented in this encounter Additional Health Concerns Assessment Noted Time PHQ-9 Depression Total Score: 18 02/14/2013 9:53 AM CD T documented as of this encounter
--- OUTSIDE RECORDS SUMMARY | 2022-08-19 10:33 | XMS_ITS | Encounter Summary ---
:1960 Author Organization [facility] Address [address] [place] [address] Care Team Providers Name Role Phone Unavailable Primary Care Provider Unavailable Encounter Details Date Type Department Care Team Description 05/12/2015 Hospital Encounter [facility] Piero Swann M.D. [address] [place] [phone] (Wo rk) Social History Tobacco Use [...] and urlogic cancers sent for scanning. Source: [facility] POWERCHART Document Id: [id number] documented in this encounter Plan of Treatment Not on filedocumented as of this encounter Visit Diagnoses Not on filedocumented in this encounter Additional Health Concerns Assessment Noted Time PHQ-9 Depression Total Score: 18 02/14/2013 9:53 AM CD T documented as of this encounter
--- OUTSIDE RECORDS SUMMARY | 2022-08-19 10:33 | XMS_ITS | Encounter Summary ---
:1960 Author Organization [facility] Address [address] [place] [address] Care Team Providers Name Role Phone Unavailable Primary Care Provider Unavailable Encounter Details Date Type Department Care Team Description 01/09/2015 Hospital Encounter [facility] Cintia Aguirre M.D. [address] [place] [phone] (Wo rk) Social History Tobacco Use [...] I would appreciate the guidance of his i&c technician. We will arrange this appointment. 3. Hypertension [...] 09:44 PM Source: [facility] POWERCHART Document Id: [id number] documented in this encounter Miscellaneous Notes Miscellaneous - Cintia Cobb M.D. - 01/09/2015 6:56 PM CDT Ambulatory Patient Summary [address] [place] [phone] Visit Information Name: LAZ LUNA [facility] Number: [id number] Current Date: 01/09/2015 18:56:56 [...] Appointments Date Time Location Provider 01/16/2015 13:15 [facility] Urology Gonzalez MENDEZ, Rayna Posadas Attention: Contact your local Clinic if further appointment detail needed. Your Goals/Additional instructions: Future Appointment: nurse visit BP check 1 week Lab: _ Radiology: _ Need Prior Auth: _ NO Prior Auth: _ Consult: _ Release of MR_ PHI_ Source: [facility] POWERCHART Document Id: [id number] Miscellaneous - Cintia Cobb M.D. - 01/09/2015 6:56 PM CDT Ambulatory Discharge Medication List [address] [place], [place] [phone] Visit Information Name: LAZ LUNA [facility] Number: [id number] Visit Date: 01/09/2015 18:56:55 [...] MD Signed On:09-JAN-2015 18:55:13 Additional Information: Source: [facility] POWERCHART Document Id: [id number] Miscellaneous - Rosetta Ramirez L.P.N. - 01/09/2015 6:15 PM CDT Adult Aged Or Disabled Care Worker Intake/History Adult Aged Or Disabled Care Worker Intake/History Entered On: 01/09/2015 18:23 CDT Performed [...] RAMIREZ LPN - 01/09/2015 18:15 CDT Source: [employer] Document Id: [id number] CDT!46 documented in this encounter Plan of Treatment Not on filedocumented as of this encounter Visit Diagnoses Not on filedocumented in this encounter Additional Health Concerns Assessment Noted Time PHQ-9 Depression Total Score: 18 02/14/2013 9:53 AM CD T documented as of this encounter
--- OUTSIDE RECORDS SUMMARY | 2022-08-19 10:33 | XMS_ITS | Encounter Summary ---
:1960 Author Organization [facility] Address [address] [place] [address] Care Team Providers Name Role Phone Unavailable Primary Care Provider Unavailable Encounter Details Date Type Department Care Team Description 01/16/2015 Hospital Encounter HX [facility] UROLOGY Charleen Roth M.D. [address] [place] [phone] (Wo rk) Social History Tobacco Use Types [...] Roth M.D. - 01/16/2015 1:18 PM CDT [id number] A 54-year-old gentleman with a long history [...] that time. He was seen at the [facility] and he tells me that they [...] ROTH MD On: 01/30/2015 09:48 AM Source: [facility] MHSDOLBEYNONRADSYS Document Id: [id number] documented in this encounter Miscellaneous Notes Miscellaneous - Angela Terry R.N. - 01/30/2015 4:42 PM CDT Provider Letter 30 Jan 2015 NOEMÍ LUNA [address] [place] [phone] Dear NOEMÍ LUNA, I am pleased to report that your results from the following diagnostic test(s) are normal. Please follow up with us as we discussed during your visit or sooner if you have any concerns. If you have questions or concerns, please do not hesitate to call our office at [phone]. Result Name Current Result [facility] 444 01/16/2015 240-950 - Sincerely, TRINI TERRY Electronic Signature Electronically Signed By: TRINI TERRY RN On: 30 Jan 2015 This document has images extracted. Source: [facility] POWERCHART Document Id: [id number] Electronically signed by Dayami, [facility] Carton Forming Machine Tender [id number] at 02/01/2017 7:34 PM CDT Telephone Encounter - Conversion, Historical Provider Ser - 01/30/2015 10:01 AM CDT Outside Referral [place] Entered by JESSIKA PAREKH on 30 Jan 2015 10:01:05 CDT Thank you for your referral.? This patient has not returned messages to call us so that we may obtain information for registrationand scheduling purposes. The referral has been closed. The following patient has a Consult to Outside Specialist [place]: order placed. Patient Name: NOEMÍ LUNA Diagnosis: Impotence of Organic Origin,of Organic Origin, Ordering Provider: RAYNA ROTH MD ; Original Order DT/TM: January 16, 2015 14:13:01 CDT ; Order: Consult to Outside Specialist [place] ; Order Details: Referral For: Adult Department: Urology Reason For Visit: men's health Why Needs cannot be met : NOT FOUND Why Needs cannot be met - FH : NOT FOUND Why Needs cannot be met [place] : Service not available at [facility] Facility : [facility] FH : NOT FOUND Appointment Type: [...] be Sent: NOT FOUND Impotence Organic Source: [facility] POWERCHART Document Id: [id number] Miscellaneous - Raymond Graham, L.P.N. - 01/16/2015 1:40 PM CDT Adult Cath Lab Intake/History Adult Cath Lab Intake/History Entered On: 01/16/2015 13:42 CDT Performed [...] Pain Symptoms : No RAYMOND GRAHAM Violette [facility] - 01/16/2015 13:40 CDT Dependent Habits Tobacco Use/Currently Using : No Exposure to Tobacco Smoke : Care provider denies smoking in home Smoking Status : Never smoker Alcohol Use : No ISABELLA GRAHAMFREDO Oakes FACILITY MAINTENANCE SUPERVISOR - 01/16/2015 13:40 CDT Caffeine Use Grid Caffeine Use : Current Type : Coffee, Soft drinks Frequency : Weekly Amount : soda- weekly; coffee- 1x/week ISABELLA GRAHAMFREDO Oakes [facility] - 01/16/2015 13:40 CDT Recreational Drug Use Grid Drug Use : None ISABELLA GRAHAMFREDO Oakes [facility] - 01/16/2015 13:40 CDT ID Screen Drug Resistant Organism : No Travel Within Last 21 Days : No Contact with someone with Ebola : No GRAHAM, RAYMOND L [facility] - 01/16/2015 13:40 CDT Source: [employer] Document Id: [id number] CDT!10 documented in this encounter Plan of [...] Total and Free (01/16/2015 2:27 PM CDT) [facility] Method Time Signature % Free 7.5 (L) 9 - 30 POWERCHART Testosterone NGDL Comment: ADDITIONAL INFORMATIO N Testing performed by Catarina mcmahan Testosterone, Total 444 240 - 950 NGDL POWER CHART Comment: ADDITIONAL INFORMATIO N Testing performed by Liquid Chromatograp hy-Tandem Mass Spectrometry (LC-MS/MS). Test Performed by: [place] [address] Chemical Checker: Rene Gomez II, M.D., Ph.D. Specimen (Source) Anatomical Collection Method Collection Time Re ceived Time Location / / Volume Laterality Blood 01/16/2015 2:27 PM CDT Rayna Roth M.D. LAB BLOOD NON ADD-ON Performing Organization Address City/State/ZIP Code Phon e Number POWERCHART PSA (Prostate-Specific Antigen), Total and Free (01/16/2015 2:15 PM CDT) [facility] gist Method Time Signature Prostate-Speci 1.4 <=3.5 [...] of malignant disease. Test Performed by: [facility] - [address] [address] Chemical Checker: Rene Gomez II, M.D., Ph.D. Specimen (Source) [...]
--- OUTSIDE RECORDS SUMMARY | 2022-08-19 10:34 | XMS_ITS | Encounter Summary ---
:1960 Author Organization [facility] Address [address] [place] [address] Care Team Providers Name Role Phone Unavailable Primary Care Provider Unavailable Encounter Details Date Type Department Care Team Description 11/04/2014 Hospital Encounter [facility] Cintia Cobb M.D. [address] [place] [phone] (Wo rk) Social History Tobacco Use [...] 185 cm (6' 0.84) 11/04/2014 1:27 PM AUTOMOTIVE GLASS TECHNICIAN Body Mass Index - - documented in this encounter Miscellaneous Notes Miscellaneous - Cintia Cobb M.D. - 11/17/2014 3:00 PM CDT Normal Results Letter 17 November 2014 ED JEREMY [address] [place] [address] [address] [facility] [id number] Dear LAZ LUNA, Your recent creatinine was [...] >60 10/03/2014 >=60 - Sincerely, CINTIA KILGORE [address] [address] Electronic Signature Electronically Signed By: CINTIA KILGORE MD On: 17 November 2014 This document has images extracted. Source: [employer] Document Id: [id number] Electronically signed by Conversion, [facility] Human Geography Instructor [id number] at 02/02/2017 1:37 AM CDT Miscellaneous - Conversion, Historical Provider Ser - 11/04/2014 11:59 PM AUTOMOTIVE GLASS TECHNICIAN Coding Summary-Paper Based CODING DATE: 11/08/2014 FINAL [facility] STATUS: * Discharged to Home [...] BLISS Date Saved: 11/08/2014 02:17 pm Source: [employer] Document Id: [id number] documented in this encounter Plan of Treatment Not on filedocumented as of this encounter Procedures Procedure Name Priority Date/Time Associated Comments Diagnosis CREATININE WITH Routine 11/04/2014 1:40 PM Result s for this EGFR, S/P AUTOMOTIVE GLASS TECHNICIAN procedure are i n the results section. documented in this encounter Results (ABNORMAL) Creatinine with eGFR (11/04/2014 1:40 PM AUTOMOTIVE GLASS TECHNICIAN) [facility] Time Signature Creatinine 1.43 (H) 0.60 - POWERCHART 1.30 MGDL HXeGFR (MDRD) 51 (L) >=60 POWERCHART [id number] eGFR >60 >=60 POWERCHART Black/ [id number] Sudanese Specimen (Source) Anatomical Collection Method Collection Time Re ceived Time Location / / Volume Laterality Blood 11/04/2014 1:40 PM AUTOMOTIVE GLASS TECHNICIAN Cintia Copeland M.D. LAB BLOOD ADD-ON Performing Organization Address City/State/ZIP Code Phon e Number POWERCHART documented in this encounter Visit Diagnoses Not on filedocumented in this encounter Additional Health Concerns Assessment Noted Time PHQ-9 Depression Total Score: 18 02/14/2013 9:53 AM CD T documented as of this encounter
--- OUTSIDE RECORDS SUMMARY | 2022-08-19 10:34 | XMS_ITS | Encounter Summary ---
:1960 Author Organization [facility] Address [address] [place] [address] Care Team Providers Name Role Phone Unavailable [...] Results Glucose, POCT (11/27/2014 11:59 AM CDT) [facility] Method Time Signature Last Intake 2-3 hours [facility] Glucose, 137 70 - 140 [facility] POCT, B MG/DL LAB[facility]ATORIES - [facility] Sample Site, Capillary [facility] Blood Gas, LABORATORIES - POCT [facility] Specimen Anatomical Collection Method Collection Time Receive d Time (Source) Location / / Volume Laterality 11/27/2014 11:59 11/27/2014 AM CDT 11:59 AM CDT Historical Provider LAB POCT ORDERABLES-MANUAL Performing Organization Address City/State/ZIP Code Phon e Number [facility] - [address] [place], [place] [address] [facility] Glucose, POCT (11/27/2014 6:26 AM CDT) [facility] Method Time Signature Last Intake > 4 hours [facility] Glucose, 135 70 - 140 [facility] POCT, B MG/DL [facility] - [facility] Sample Site, Capillary [facility] Blood Gas, LABORATORIES - POCT [facility] Specimen Anatomical Collection Method Collection Time Receive d Time (Source) Location / / Volume Laterality 11/27/2014 6:26 AM 5 6:26 CDT AM CDT Historical Provider LAB POCT ORDERABLES-MANUAL Performing Organization Address City/[facility] Phon e Number [facility] - [address] [place] [address] [facility] (ABNORMAL) Glucose, POCT (11/26/2014 10:21 PM CDT) [facility] Method Time Signature Glucose, 144 (H) 70 - 140 [facility] POCT, B MG/DL [facility]IES - [facility] Sample Site, Capillary [facility] Blood Gas, LABORATORIES - POCT [facility] Last Intake > 4 hours [facility] Specimen Anatomical Collection Method Collection Time Receive d Time (Source) Location / / Volume Laterality 11/26/2014 10:21 11/26/2014 PM CDT 10:21 PM CDT Historical Provider LAB POCT ORDERABLES-MANUAL Performing Organization Address [facility] Phon e Number [facility] - [address] [place] [address] [facility] (ABNORMAL) Glucose, POCT (11/26/2014 5:49 PM CDT) [facility] Method Time Signature Glucose, 167 (H) 70 - 140 [facility] POCT, B MG/DL [facility] - [facility] Sample Site, Capillary [facility] Blood Gas, LABORATORIES - POCT [facility] Last Intake 2-3 hours [facility] Specimen Anatomical Collection Method Collection Time Receive d Time (Source) Location / / Volume Laterality 11/26/2014 5:49 PM 5 5:49 CDT PM CDT Historical Provider LAB POCT ORDERABLES-MANUAL Performing Organization Address City/[facility] Phon e Number [facility] - [address] [place] [address] [facility] (ABNORMAL) Glucose, POCT (11/26/2014 11:48 AM CDT) [facility] Signature Glucose, POCT, 147 (H) 70 - 140 [facility] B MG/DL [facility] - [facility] Specimen Anatomical Collection Method Collection Time Receive d Time (Source) Location / / Volume Laterality 11/26/2014 11:48 11/26/2014 AM CDT 11:48 AM CDT Historical Provider LAB POCT ORDERABLES-MANUAL Performing Organization Address City/[facility] Phon e Number [facility] - [address] [place] [address] [facility] (ABNORMAL) Electrolyte (Chem 4) Panel (11/26/2014 7:18 AM CDT) [facility] Signature Sodium, S 140 135 - 145 [facility] MMOL/L [facility] Potassium, S 4.0 3.6 - 5.2 [facility] MMOL/L [facility] Chloride, S 98 98 - 107 [facility] MMOL/L [facility] - [facility] HX Bicarbonate, 29 22 - 29 [facility] P/S MMOL/L LAB[facility]ATORIES - [facility] Creatinine 1.1 0.8 - 1.3 [facility] MG/DL [facility]IES - [facility] eGFR >60 >60 [facility] Non-Black/Afric ML/MIN/BSA LABORATORIES - an Wallisian [facility] eGFR-Black/Afri >60 >60 [facility] can [place]ian ML/MIN/BSA [facility]ATORIES - [facility] BUN (Blood Urea 27 (H) 8 - 24 [facility] Nitrogen), S MG/DL [facility]IES - [facility] Anion Gap 13 7 - 15 [facility] - [facility] Glucose, S 139 70 - 140 [facility] MG/DL [facility] - [facility] Specimen Anatomical Collection Method Collection Time Receive d Time (Source) Location / / Volume Laterality 11/26/2014 7:18 AM 5 7:18 CDT AM CDT Shane Mendes M.D. LAB BLOOD ADD-ON Performing Organization Address City/[facility]/ZIP Code Phon e Number [facility] - [address] [place] [address] [facility] Magnesium (11/26/2014 7:18 AM CDT) P athologist Signature Magnesium, S 1.8 1.7 - 2.3 [facility] MG/DL [facility] - [facility] Specimen Anatomical Collection Method Collection Time Receive d Time (Source) Location / / Volume Laterality 11/26/2014 7:18 AM 5 7:18 CDT AM CDT Shane Mendes M.D. LAB BLOOD ADD-ON Performing Organization Address City/[facility]/ZIP Code Phon e Number [facility] - [address] [place] [phone] [facility] Phosphorus Inorganic (11/26/2014 7:18 AM CDT) Analysis Performed At Patho logist Time Signature Phosphorus 2.5 2.5 - 4.5 [facility] (Inorganic), S MG/DL [facility]IES - [facility] Specimen Anatomical Collection Method Collection Time Receive d Time (Source) Location / / Volume Laterality 11/26/2014 7:18 AM 5 7:18 CDT AM CDT Shane Mendes M.D. LAB BLOOD ADD-ON Performing Organization Address City/[facility]/ZIP Code Phon e Number [facility] - [address] [place] [address] [facility] (ABNORMAL) Glucose, POCT (11/26/2014 6:43 AM CDT) [facility] gist Method Time Signature Last Intake > 4 hours [facility] Glucose, 145 (H) 70 - 140 [facility] POCT, B MG/DL [facility]ATORIES - [facility] Sample Site, Capillary [facility] Blood Gas, LABORATORIES - POCT [facility] Specimen Anatomical Collection Method Collection Time Receive d Time (Source) Location / / Volume Laterality 11/26/2014 6:43 AM 5 6:43 CDT AM CDT Historical Provider LAB POCT ORDERABLES-MANUAL Performing Organization Address City/[facility]/ZIP Code Phon e Number [facility] - [address] [place], [place] [address] [facility] (ABNORMAL) Glucose, POCT (11/25/2014 9:56 PM CDT) [facility] Method Time Signature Last Intake 2-3 hours [facility] Glucose, 145 (H) 70 - 140 [facility] POCT, B MG/DL [facility]ATORIES - [facility] Sample Site, Capillary [facility] Blood Gas, LABORATORIES - POCT [facility] Specimen Anatomical Collection Method Collection Time Receive d Time (Source) Location / / Volume Laterality 11/25/2014 9:56 PM 5 9:56 CDT PM CDT Historical Provider LAB POCT ORDERABLES-MANUAL Performing Organization Address City/State/ZIP Code Phon e Number [facility] - [address] [place], [place] [address] [facility] (ABNORMAL) Glucose, POCT (11/25/2014 5:35 PM CDT) [facility] Method Time Signature Glucose, 207 (H) 70 - 140 [facility] POCT, B MG/DL LABORATORIES [facility] Sample Site, Capillary [facility] Blood Gas, LABORATORIES - POCT [facility] Last Intake 2-3 hours [facility] Specimen Anatomical Collection Method Collection Time Receive d Time (Source) Location / / Volume Laterality 11/25/2014 5:35 PM 5 5:35 CDT PM CDT Historical Provider LAB POCT ORDERABLES-MANUAL Performing Organization Address City/State/ZIP Code Phon e Number [facility] - [address] [place], [place] [address] [facility] (ABNORMAL) Glucose, POCT (11/25/2014 2:47 PM CDT) [facility] Method Time Signature Glucose, POCT, 189 (H) 70 - 140 [facility] B MG/DL [facility] - [facility] Last Intake 3-4 hours [facility] Specimen Anatomical Collection Method Collection Time Receive d Time (Source) Location / / Volume Laterality 11/25/2014 2:47 PM 5 2:47 CDT PM CDT Historical Provider LAB POCT ORDERABLES-MANUAL Performing Organization Address City/[facility] Code Phon e Number [facility] - [address] [place], [place] [address] [facility] (ABNORMAL) Glucose, POCT (11/25/2014 6:40 AM CDT) [facility] Time Signature Glucose, 158 (H) 70 - 140 [facility] POCT, B MG/DL [facility]IES - [facility] Sample Site, Capillary [facility] Blood Gas, LABORATORIES - POCT [facility] Last Intake > 4 hours [facility] Specimen Anatomical Collection Method Collection Time Receive d Time (Source) Location / / Volume Laterality 11/25/2014 6:40 AM 5 6:40 CDT AM CDT Historical Provider LAB POCT ORDERABLES-MANUAL Performing Organization Address City/State/[facility] Code Phon e Number [facility] - [address] [place], [place] [address] [facility] (ABNORMAL) CBC with Differential (11/25/2014 4:09 AM CDT) [facility] Signature Hemoglobin 14.7 13.5 - [facility] 17.5 G/DL [facility] Hematocrit 46.3 38.8 - [facility] 50.0 % [facility] RBC Distrib 15.8 (H) 11.8 - [facility] Width 15.6 % [facility] Platelet Count 168 150 - 450 [facility] X10(9)/L [facility] Lymphocytes 1.42 0.90 - [facility] 2.90 LABORATORIES - X10(9)/L [facility] Monocytes 1.43 (H) 0.30 - [facility] 0.90 LABORATORIES - X10(9)/L [facility] Erythrocytes 5.09 4.32 - [facility] 5.72 LABORATORIES - X10(12)/L [facility] MCV 91.0 81.2 - [facility] 95.1 FL LABORATORIES - [facility] Leukocytes 11.2 (H) 3.5 - [facility] 10.5 LABORATORIES - X10(9)/L [facility] Neutrophils 8.00 (H) 1.70 - [facility] 7.00 LABORATORIES - X10(9)/L [facility] Eosinophils 0.34 0.05 - [facility] 0.50 LABORATORIES - X10(9)/L [facility] Basophils 0.04 0.00 - [facility] 0.30 LABORATORIES - X10(9)/L [facility] Specimen Anatomical Collection Method Collection Time Receive d Time (Source) Location / / Volume Laterality 11/25/2014 4:09 AM 5 4:09 CDT AM CDT Berkley Kaufman M.D. LAB BLOOD ADD-ON Performing Organization Address City/State/ZIP Code Phon e Number [facility] - [address] [place], [place] [address] [facility] (ABNORMAL) Electrolyte (Chem 4) Panel (11/25/2014 4:09 AM CDT) [facility] gist Method Time Signature Chloride, S 100 98 - 107 [facility] MMOL/L LABORATORIES [facility] HX Bicarbonate, 30 (H) 22 - 29 [facility] P/S MMOL/L LABORATORIES [facility] eGFR-Black/Afri >60 >60 [facility] can [place]ian ML/MIN/BS LABORATORIES - A [facility] BUN (Blood Urea 35 (H) 8 - 24 [facility] Nitrogen), S MG/DL LABORATORIES [facility] Sodium, S 142 135 - 145 [facility] MMOL/L [facility] Potassium, S 4.7 3.6 - 5.2 [facility] MMOL/L [facility] Creatinine 1.2 0.8 - 1.3 [facility] MG/DL [facility]ATORIES - [facility] eGFR >60 >60 [facility] Non-Black/Afric ML/MIN/BS LABORATORIES - an [place]ian A [facility] Anion Gap 12 7 - 15 [facility] - [facility] Glucose, S 152 (H) 70 - 140 [facility] MG/DL [facility] - [facility] Specimen Anatomical Collection Method Collection Time Receive d Time (Source) Location / / Volume Laterality 11/25/2014 4:09 AM 5 4:09 CDT AM CDT Berkley Kaufman M.D. LAB BLOOD ADD-ON Performing Organization Address City/[facility]/ZIP Code Phon e Number [facility] - [address] [place] [address] [facility] (ABNORMAL) Phosphorus Inorganic (11/25/2014 4:09 AM CDT) [facility] Method Time Signature Phosphorus 1.8 (L) 2.5 - 4.5 [facility] (Inorganic), S MG/DL [facility]IES - [facility] Specimen Anatomical Collection Method Collection Time Receive d Time (Source) Location / / Volume Laterality 11/25/2014 4:09 AM 5 4:09 CDT AM CDT Berkley Kaufman M.D. LAB BLOOD ADD-ON Performing Organization Address City/[facility] Phon e Number [facility] - [address] [place] [address] [facility] (ABNORMAL) Glucose, POCT (11/25/2014 1:39 AM CDT) [facility] Method Time Signature Glucose, 147 (H) 70 - 140 [facility] POCT, B MG/DL [facility]ATORIES - [facility] Sample Site, Capillary [facility] Blood Gas, LABORATORIES - POCT [facility] Last Intake > 4 hours [facility] - [facility] Specimen Anatomical Collection Method Collection Time Receive d Time (Source) Location / / Volume Laterality 11/25/2014 1:39 AM 5 1:39 CDT AM CDT Historical Provider LAB POCT ORDERABLES-MANUAL Performing Organization Address City/[facility] Phon e Number [facility] - [address] [place] [address] [facility] (ABNORMAL) Glucose, POCT (11/24/2014 7:34 PM CDT) [facility] Method Time Signature Glucose, POCT, 194 (H) 70 - 140 [facility] B MG/DL [facility]IES - [facility] Sample Site, ARTLINE [facility] Blood Gas, LABORATORIES - POCT [facility] Specimen Anatomical Collection Method Collection Time Receive d Time (Source) Location / / Volume Laterality 11/24/2014 7:34 PM 5 7:34 CDT PM CDT Historical Provider LAB POCT ORDERABLES-MANUAL Performing Organization Address City/[facility]/ZIP Code Phon e Number [facility] - [address] [place], [place] [address] [facility] (ABNORMAL) Glucose, POCT (11/24/2014 1:21 PM CDT) Patholo gist Method Time Signature Glucose, POCT, 199 (H) 70 - 140 [facility] B MG/DL [facility] - [facility] Sample Site, ARTLINE [facility] Blood Gas, LABORATORIES - POCT [facility] Specimen Anatomical Collection Method Collection Time Receive d Time (Source) Location / / Volume Laterality 11/24/2014 1:21 PM 5 1:21 CDT PM CDT Historical Provider LAB POCT ORDERABLES-MANUAL Performing Organization Address City/[facility]/ZIP Code Phon e Number [facility] - [address] [place] [address] [facility] Phosphorus Inorganic (11/24/2014 6:50 AM CDT) Analysis Performed At Patho logist Time Signature Phosphorus 2.5 2.5 - 4.5 [facility] (Inorganic), S MG/DL [facility]IES - [facility] Specimen Anatomical Collection Method Collection Time Receive d Time (Source) Location / / Volume Laterality 11/24/2014 6:50 AM 5 6:50 CDT AM CDT Eric Hess M.D. LAB BLOOD ADD-ON Performing Organization Address City/[facility]/ZIP Code Phon e Number [facility] - [address] [place], [place] [address] [facility] Magnesium (11/24/2014 6:50 AM CDT) P athologist Signature Magnesium, S 2.0 1.7 - 2.3 [facility] MG/DL [facility]IES - [facility] Specimen Anatomical Collection Method Collection Time Receive d Time (Source) Location / / Volume Laterality 11/24/2014 6:50 AM 5 6:50 CDT AM CDT Eric Hess M.D. LAB BLOOD ADD-ON Performing Organization Address City/State/ZIP Code Phon e Number [facility] - [address] [place], [place] [address] [facility] PT (Prothrombin Time) with INR (11/24/2014 6:50 AM CDT) [facility] Experience Headphones Method Time Signature Prothrombin 12.8 9.5 - 13.8 [facility] Time, P SEC [facility] INR 1.1 0.8 - 1.2 [facility] Specimen Anatomical Collection Method Collection Time Receive d Time (Source) Location / / Volume Laterality 11/24/2014 6:50 AM 5 6:50 CDT AM CDT Eric Hess M.D. LAB BLOOD ADD-ON Performing Organization Address City/[facility]/ZIP Code Phon e Number [facility] - [address] [place], [place] [address] [facility] (ABNORMAL) Blood Gas with Coox, Arterial (11/24/2014 6:50 AM CDT) [facility] Experience Headphones Method Time Signature Device NCPAP [facility] Spont. 22 [facility] breaths/min [facility] pO2 117 (H) 80 - 100 [facility] MM HG [facility] pCO2 56 (H) 35 - 45 [facility] MM HG [facility] pH 7.34 (L) 7.35 - [facility] 7.45 PH [facility] Base Excess 4 (H) -2 - 2 [facility] MMOL/L [facility] O2Hb 95.7 94.0 - [facility] 98.0 % [facility] COHb 1.7 <3.0 % [facility] Arterial Art Line [facility] Sample Site [facility] FIO2 0.60 .21=AIR [facility] HCO3 30 (H) 22 - 26 [facility] MMOL/L [facility] Hb 14.6 13.5 - [facility] 17.5 G/DL [facility] MetHb 1.0 <1.6 % [facility] CtO2 19.8 (L) 21.0 - [facility] 23.0 VOL [facility] Specimen Anatomical Collection Method Collection Time Receive d Time (Source) Location / / Volume Laterality 11/24/2014 6:50 AM 5 6:50 CDT AM CDT Eric Hess M.D. LAB BLOOD NON ADD-ON Performing Organization Address City/[facility]/ZIP Code Phon e Number [facility] - [address] [place] [address] [facility] (ABNORMAL) CBC without Differential (11/24/2014 6:50 AM CDT) [facility] Method Time Signature Leukocytes 11.4 (H) 3.5 - [facility] 10.5 LABORATORIES - X10(9)/L [facility] Hemoglobin 14.0 13.5 - [facility] 17.5 G/DL LABORATORIES - [facility] MCV 90.5 81.2 - [facility] 95.1 FL LABORATORIES - [facility] RBC Distrib 16.1 (H) 11.8 - [facility] Width 15.6 % LABORATORIES - [facility] Platelet Count 146 (L) 150 - 450 [facility] X10(9)/L [facility]ATORIES - [facility] Hematocrit 44.6 38.8 - [facility] 50.0 % LABORATORIES - [facility] Erythrocytes 4.93 4.32 - [facility] 5.72 LABORATORIES - X10(12)/L [facility] Specimen Anatomical Collection Method Collection Time Receive d Time (Source) Location / / Volume Laterality 11/24/2014 6:50 AM 5 6:50 CDT AM CDT Eric Hess M.D. LAB BLOOD ADD-ON Performing Organization Address City/State/ZIP Code Phon e Number [facility] - [address] [place] [address] [facility] Calcium, Ionized (11/24/2014 6:50 AM CDT) athologist Signature Calcium, 5.07 4.65 - [facility] Ionized, B 5.30 MG/DL [facility] - [facility] Specimen Anatomical Collection Method Collection Time Receive d Time (Source) Location / / Volume Laterality 11/24/2014 6:50 AM 5 6:50 CDT AM CDT Eric Hess M.D. LAB BLOOD NON ADD-ON Performing Organization Address City/State/ZIP Code Phon e Number [facility] - [address] [place] [address] [facility] (ABNORMAL) Electrolyte (Chem 4) Panel (11/24/2014 6:50 AM CDT) [facility] Method Time Signature Chloride, S 102 98 - 107 [facility] MMOL/L [facility]IES - [facility] HX Bicarbonate, 27 22 - 29 [facility] P/S MMOL/L [facility]ATORIES - [facility] eGFR-Black/Afri >60 >60 [facility] can Wall[place]ian ML/MIN/BS LABORATORIES - A [facility] BUN (Blood Urea 47 (H) 8 - 24 [facility] Nitrogen), S MG/DL [facility]IES - [facility] Sodium, S 142 135 - 145 [facility] MMOL/L [facility]IES - [facility] Potassium, S 4.8 3.6 - 5.2 [facility] MMOL/L [facility]IES - [facility] Creatinine 1.4 (H) 0.8 - 1.3 [facility] MG/DL [facility]IES - [facility] eGFR 52 (L) >60 [facility] Non-Black/Afric ML/MIN/BS LABORATORIES - an [place] A [facility] Anion Gap 13 7 - 15 [facility]ATORIES - [facility] Glucose, S 132 70 - 140 [facility] MG/DL [facility] - [facility] Specimen Anatomical Collection Method Collection Time Receive d Time (Source) Location / / Volume Laterality 11/24/2014 6:50 AM 5 6:50 CDT AM CDT Eric Hess M.D. LAB BLOOD ADD-ON Performing Organization Address City/State/ZIP Code Phon e Number [facility]IES - [address] [place] [address] [facility] Glucose, POCT (11/24/2014 6:49 AM CDT) P athologist Signature Glucose, POCT, 137 70 - 140 [facility] B MG/DL [facility]IES - [facility] Sample Site, ARTL [facility] Blood Gas, LABORATORIES - POCT [facility] Specimen Anatomical Collection Method Collection Time Receive d Time (Source) Location / / Volume Laterality 11/24/2014 6:49 AM 5 6:49 CDT AM CDT Historical Provider LAB POCT ORDERABLES-MANUAL Performing Organization Address City/[facility]/ZIP [facility] Phon e Number [facility]IES - [address] [place] [address] [facility] (ABNORMAL) Blood Gas with Coox, Arterial (11/24/2014 2:50 AM CDT) Patholo gist Method Time Signature Arterial Art Line [facility] Sample Site [facility]ATORIES - [facility] O2 Flow 4.0 L/MIN [facility]ATORIES - [facility] pO2 53 (L) 80 - 100 [facility] MM HG LABORATORIES [facility] pCO2 51 (H) 35 - 45 [facility] MM HG LABORATORIES [facility] HCO3 28 (H) 22 - 26 [facility] MMOL/L LABORATORIES [facility] Hb 14.7 13.5 - [facility] 17.5 G/DL [facility] MetHb <1.0 <1.6 % [facility] LABORATORIES [facility] CtO2 17.5 (L) 21.0 - [facility] 23.0 VOL LABORATORIES - % [facility] Device NC [facility]ATORIES - [facility] Spont. 19 [facility] breaths/min LABORATORIES [facility] pH 7.36 7.35 - [facility] 7.45 PH [facility] Base Excess 3 (H) -2 - 2 [facility] MMOL/L [facility] O2Hb 84.6 (L) 94.0 - [facility] 98.0 % [facility] COHb 1.6 <3.0 % [facility] LABORATORIES [facility] Specimen Anatomical Collection Method Collection Time Receive d Time (Source) Location / / Volume Laterality 11/24/2014 2:50 AM 5 2:50 CDT AM CDT Kemal Heredia M.D. LAB BLOOD NON ADD-ON Performing Organization Address City/State/ZIP Code Phon e Number [facility]ORATORIES - [address] [address] 05 [facility] Glucose, POCT (11/24/2014 2:49 AM CDT) Patholo gist Method Time Signature Glucose, POCT, 135 70 - 140 [facility] B MG/DL LABORATORIES [facility] Sample Site, ARTLINE [facility] Blood Gas, LABORATORIES - POCT [facility] Specimen Anatomical Collection Method Collection Time Receive d Time (Source) Location / / Volume Laterality 11/24/2014 2:49 AM 5 2:49 CDT AM CDT Historical Provider LAB POCT ORDERABLES-MANUAL Performing Organization Address City/[facility] Phon e Number [facility]ORATORIES - [address] [address] 05 [facility] Glucose, POCT (11/23/2014 7:05 PM CDT) P athologist Signature Glucose, POCT, 133 70 - 140 [facility] B MG/DL LABORATORIES [facility] Specimen Anatomical Collection Method Collection Time Receive d Time (Source) Location / / Volume Laterality 11/23/2014 7:05 PM 5 7:05 CDT PM CDT Historical Provider LAB POCT ORDERABLES-MANUAL Performing Organization Address City/[facility]/ZIP Code Phon e Number [facility]ORATORIES - [address] [address] [facility] (ABNORMAL) Blood Gas without Coox, Arterial (11/23/2014 3:35 PM CDT) Patholo gist Method Time Signature Device [place] [facility] Spont. 16 [facility] breaths/min [facility] pO2 74 (L) 80 - 100 [facility] MM HG [facility] pCO2 48 (H) 35 - 45 [facility] MM HG [facility] HCO3 27 (H) 22 - 26 [facility] MMOL/L [facility] Arterial Art Line [facility] Sample Site [facility] O2 Flow 4.0 L/MIN [facility] pH 7.37 7.35 - [facility] 7.45 PH [facility] Base Excess 2 -2 - 2 [facility] MMOL/L [facility] Specimen Anatomical Collection Method Collection Time Receive d Time (Source) Location / / Volume Laterality 11/23/2014 3:35 PM 5 3:35 CDT PM CDT Danni Bran APRN C.N.P., M.S., R.N. LAB BLOO D NON ADD-ON Performing Organization Address City/[facility]/ZIP Code Phon e Number [facility]ATORIES - [address] [address] 05 [facility] (ABNORMAL) Cardiac Biomarker Panel (11/23/2014 3:35 PM CDT) Analysis Performed At Patho logist Time Signature Delta Interp Not Sig [facility] Comment: No significant delta observed. Troponin Delta 0.00 NG/ML [facility] Troponin Delta -0.01 NG/ML [facility] Troponin T, S 0.04 (H) <0.01 NG/ML [facility] Troponin T 3H, S 0.04 (H) <0.01 NG/ML [facility] Troponin T 6H, S 0.03 (H) <0.01 NG/ML [facility] IN LABORATORIES [facility] Delta Interp Not Sig [facility] LABOR ATORIES - [facility] Comment: No significant delta observed. Specimen Anatomical Collection Method Collection Time Receive d Time (Source) Location / / Volume Laterality 11/23/2014 3:35 PM 5 3:35 CDT PM CDT Danni Bran APRN, C.N.P., M.S., R.N. LAB BLOO D ADD-ON Performing Organization Address City/[facility]/ZIP Code Phon e Number [facility]ORATORIES - [address] [place], [place] [address] [facility] (ABNORMAL) Electrolyte (Chem 4) Panel (11/23/2014 3:35 PM CDT) [facility] Method Time Signature Chloride, S 100 98 - 107 [facility] MMOL/L LABORATORIES [facility] HX Bicarbonate, 25 22 - 29 [facility] P/S MMOL/L LABORATORIES [facility] eGFR-Black/Afri 40 (L) >60 [facility] can Wallisian ML/MIN/BS LABORATORIES - A [facility] BUN (Blood Urea 54 (H) 8 - 24 [facility] Nitrogen), S MG/DL [facility] Sodium, S 141 135 - 145 [facility] MMOL/L [facility] Potassium, S 4.7 3.6 - 5.2 [facility] MMOL/L [facility] Creatinine 2.1 (H) 0.8 - 1.3 [facility] MG/DL [facility] eGFR 33 (L) >60 [facility] Non-Black/Afric ML/MIN/BS LABORATORIES - an Wallisian A [facility] Anion Gap 16 (H) 7 - 15 [facility] LABORATORIES [facility] Glucose, S 123 70 - 140 [facility] MG/DL LABORATORIES - [facility] Specimen Anatomical Collection Method Collection Time Receive d Time (Source) Location / / Volume Laterality 11/23/2014 3:35 PM 5 3:35 CDT PM CDT Danni Bran APRN, C.N.P., M.S., R.N. LAB BLOO D ADD-ON Performing Organization Address City/[facility]/ZIP Code Phon e Number [facility]ORATORIES - [address] [facility], [place] [address] [facility] Glucose, POCT (11/23/2014 3:30 PM CDT) [facility] Method Time Signature Glucose, POCT, 120 70 - 140 [facility] B MG/DL LABORATORIES - [facility] Sample Site, [facility] Blood Gas, LABORATORIES - POCT [facility] Specimen Anatomical Collection Method Collection Time Receive d Time (Source) Location / / Volume Laterality 11/23/2014 3:30 PM 5 3:30 CDT PM CDT Historical Provider LAB POCT ORDERABLES-MANUAL Performing Organization Address City/[facility]/ZIP Code Phon e Number [facility]ORATORIES - [address] [place], [place] [address] [facility] ECG 12 Lead (11/23/2014 2:47 PM CDT) Specimen (Source) Anatomical Collection Method Collection Time Re ceived Time Location / / Volume Laterality 11/23/2014 2:47 PM CDT [facility] RADIOLOGY SYSTEM - 11/24/2014 11:10 AM CDT 23Nov2014 14:47 VENTRICULAR RATE 62 Atrial flutter with variable A-V block Right bundle branch block When compared with ECG of 22-NOV-2014 19 :48, No significant change was found [id number]^ANA LUISA ?^[facility] Procedure Note Kaiser Skaggs Jr., M.D. - 11/27/2017For matting of this note might be different from the original. 23Nov2014 14:47 VENTRICULAR RATE 62 Atrial flutter with variable A-V block Right bundle branch block When compared with ECG of 22-NOV-2014 19 :48, No significant change was found [id number]^ANA ULISA PALOMO MD^[facility] Kemal Heredia M.D. ECG ORDERABLES Performing Organization Address City/State/ZIP Code Phon e Number HX [facility] RADIOLOGY SYSTEM [address] [place] [address], U SA Glucose, POCT (11/23/2014 7:46 AM CDT) [facility] Method Time Signature Glucose, POCT, 97 70 - 140 [facility] B MG/DL LABORATORIES - [facility] Sample Site, [facility] Blood Gas, LABORATORIES - POCT [facility] Specimen Anatomical Collection Method Collection Time Receive d Time (Source) Location / / Volume Laterality 11/23/2014 7:46 AM 5 7:46 CDT AM CDT Historical Provider LAB POCT ORDERABLES-MANUAL Performing Organization Address City/State/ZIP Code Phon e Number [facility]ATORIES - [address] [place], [place] [address] [facility] DX Chest Portable 1 View (11/23/2014 [...] athologist Signature Hemoglobin 14.1 13.5 - 17.5 [facility] G/DL [facility] Comment: Drawn From Arterial Line Hematocrit 45.5 38.8 - 50.0 % [facility] Comment: Drawn From Arterial Line RBC Distrib Width 16.4 (H) 11.8 - 15.6 % [facility] Comment: Drawn From Arterial Line Platelet Count 150 150 - 450 X10(9)/L [facility] Comment: Drawn From Arterial Line Leukocytes 15.1 (H) 3.5 - 10.5 X10(9)/L [facility] IC [facility] Comment: Drawn From Arterial Line Erythrocytes 4.89 4.32 - 5.72 X10(12)/L [facility] Comment: Drawn From Arterial Line MCV 93.0 81.2 - 95.1 [place] [facility] Comment: Drawn From Arterial Line Specimen Anatomical Collection Method Collection Time Receive d Time (Source) Location / / Volume Laterality 11/23/2014 3:47 AM 5 3:47 CDT AM CDT Narrative [facility] - 11/23/2014 4:13 AM CDT Drawn From Arterial Line Kemal Heredia M.D. LAB BLOOD ADD-ON Performing Organization Address City/State/ZIP Code Phon e Number [facility] - [address] [place] [address] [facility] (ABNORMAL) Blood Gas without Coox, Arterial (11/23/2014 3:47 AM CDT) [facility] Method Time Signature Arterial Art Line [facility] Sample Site [facility] Comment: Drawn From Arterial Line FIO2 0.35 .21=AIR [facility] Comment: Drawn From Arterial Line pO2 129 (H) 80 - 100 MM HG [facility] Comment: Drawn From Arterial Line pCO2 59 (H) 35 - 45 MM HG [facility] Comment: Drawn From Arterial Line pH 7.30 (L) 7.35 - 7.45 PH [facility] Comment: Drawn From Arterial Line Base Excess 2 -2 - 2 MMOL/L [facility] [place] [employer] [facility] Comment: Drawn From Arterial Line Device BPAP [facility] Comment: Drawn From Arterial Line Spont. breaths/min 12 [facility] Comment: Drawn From Arterial Line HCO3 28 (H) 22 - 26 MMOL/L [facility] Comment: Drawn From Arterial Line Specimen Anatomical Collection Method Collection Time Receive d Time (Source) Location / / Volume Laterality 11/23/2014 3:47 AM 5 3:47 CDT AM CDT Narrative [facility] - 11/23/2014 4:04 AM CDT Drawn From Arterial Line Kemal eHredia M.D. LAB BLOOD NON ADD-ON Performing Organization Address City/State/ZIP Code Phon e Number [facility] - [address] [place], [place] [address] [facility] (ABNORMAL) Electrolyte (Chem 4) Panel (11/23/2014 3:47 AM CDT) P athologist Signature Sodium, S 140 135 - 145 [facility] MMOL/L [facility] Comment: Drawn From Arterial Line Potassium, S 4.9 3.6 - 5.2 MMOL/L [facility] Comment: Drawn From Arterial Line Creatinine 2.6 (H) 0.8 - 1.3 MG/DL [facility] Comment: Drawn From Arterial Line eGFR Non-Black/ 26 (L) >60 ML/MIN/BSA [facility] S Comment: Drawn From Arterial Line eGFR-Black/ 31 (L) >60 ML/MIN/BSA [facility] S Comment: Drawn From Arterial Line BUN (Blood Urea Nitrogen), S 58 (H) 8 - 24 MG/DL [facility] S Comment: Drawn From Arterial Line Chloride, S 99 98 - 107 MMOL/L [facility] PAM [facility] Comment: Drawn From Arterial Line HX Bicarbonate, P/S 26 22 - 29 MMOL/L M [facility] [place] Comment: Drawn From Arterial Line Anion Gap 15 7 - 15 [facility] LABORATO PAPI [facility] Comment: Drawn From Arterial Line Glucose, S 84 70 - 140 MG/DL [facility] [place] [employer] Comment: Drawn From Arterial Line Specimen Anatomical Collection Method Collection Time Receive d Time (Source) Location / / Volume Laterality 11/23/2014 3:47 AM 5 3:47 CDT AM CDT Narrative [facility] - 11/23/2014 4:48 AM CDT Drawn From Arterial Line Kemal Heredia M.D. LAB BLOOD ADD-ON Performing Organization Address City/State/ZIP Code Phon e Number [facility] - [address] [address] 05 [facility] (ABNORMAL) Phosphorus Inorganic (11/23/2014 3:47 AM CDT) Patholo gist Method Time Signature Phosphorus 5.3 (H) 2.5 - 4.5 [facility] (Inorganic), S MG/DL [facility] Comment: Drawn From Arterial Line Specimen Anatomical Collection Method Collection Time Receive d Time (Source) Location / / Volume Laterality 11/23/2014 3:47 AM 5 3:47 CDT AM CDT Narrative [facility] - 11/23/2014 4:48 AM CDT Drawn From Arterial Line Kemal Heredia M.D. LAB BLOOD ADD-ON Performing Organization Address City/[facility]/ZIP Code Phon e Number [facility] - [address] [address] 05 [facility] Magnesium (11/23/2014 3:47 AM CDT) P athologist Signature Magnesium, S 2.0 1.7 - 2.3 [facility] MG/DL [facility] Comment: Drawn From Arterial Line Specimen Anatomical Collection Method Collection Time Receive d Time (Source) Location / / Volume Laterality 11/23/2014 3:47 AM 5 3:47 CDT AM CDT Narrative [facility] - 11/23/2014 4:48 AM CDT Drawn From Arterial Line Kemal Heredia M.D. LAB BLOOD ADD-ON Performing Organization Address City/State/ZIP Code Phon e Number [facility] - [address] [address] 05 [facility] Potassium, Blood (11/23/2014 3:47 AM CDT) P athologist Signature Potassium, B 4.5 3.6 - 5.2 [facility] MMOL/L [facility] Comment: Drawn From Arterial Line Specimen Anatomical Collection Method Collection Time Receive d Time (Source) Location / / Volume Laterality 11/23/2014 3:47 AM 5 3:47 CDT AM CDT Narrative [facility] - [facility] - 11/23/2014 4:04 AM CDT Drawn From Arterial Line Kemal Heredia M.D. LAB BLOOD NON ADD-ON Performing Organization Address City/[facility]/ZIP Code Phon e Number [facility]ORATORIES - [address] [address] 05 [facility] Glucose, POCT (11/23/2014 1:57 AM CDT) [facility] Method Time Signature Glucose, POCT, 97 70 - 140 [facility] B MG/DL LABORATORIES - [facility] Sample Site, ARTLINE [facility] Blood Gas, LABORATORIES - POCT [facility] Specimen Anatomical Collection Method Collection Time Receive d Time (Source) Location / / Volume Laterality 11/23/2014 1:57 AM 5 1:57 CDT AM CDT Historical Provider LAB POCT ORDERABLES-MANUAL Performing Organization Address City/[facility] Phon e Number [facility]ATORIES - [address] [address] 05 [facility] (ABNORMAL) Microscopic Manual (11/23/2014 1:41 AM CDT) [facility] Method [place] Signature Microscopy Abnormal [facility] LABORATORIES [facility] Blood <3 <3 /HPF [facility] WBC 4-10 (A) 1-3 [facility] (Males); LABORATORIES - 1-10 [facility] (Females) CAMPUS /HPF Casts, Hyaline 4-10 /LPF [facility] LABORATORIES [facility] Squamous 1-3 /HPF [facility] Epithelial LABORATORIES - [facility] Specimen Anatomical Collection Method Collection Time Receive d Time (Source) Location / / Volume Laterality 11/23/2014 1:41 AM 5 1:41 CDT AM CDT Berkley Kaufman M.D. LAB URINE ORDERABLES Performing Organization Address City/[facility]/ZIP [place] [facility] Phon e Number [facility] LABORATORIES - [address] [address] 05 [facility] Sodium, Random, Urine (11/23/2014 1:41 AM CDT) [facility] Method [place] Signature Sodium, 28 Interpret [facility] Random, U with other; LABORATORIES - clinical [facility]. MMOL/L CAMPUS Specimen Anatomical Collection Method Collection Time Receive d Time (Source) Location / / Volume Laterality 11/23/2014 1:41 AM 5 1:41 CDT AM CDT Berkley Kaufman M.D. LAB URINE ORDERABLES Performing Organization Address City/State/ZIP Code Phon e Number [facility] LABORATORIES - [address] [place], [place] [address] [facility] (ABNORMAL) Urinalysis with Microscopic (11/23/2014 1:41 AM CDT) athologist Signature Source . [facility] Comment: Munoz Catheter Appearance Normal Normal [facility] Glucose 4 0 - 15 MG/DL [facility] ATORIES [facility] Protein, U 29 (H) <22 MG/DL [facility] Comment: ? ADDITIONAL INFORMATIO N ? On 03/20/2014 the total protein assay me thod changed resulting ? in approximately a 20% increase in prote in values. ? Osmolality, 24 HR, U 450 150 - 1150 MOSM/KG [facility] S pH, 24 HR, U 4.5 4.5 - 8.0 [facility] LABOR ATORIES [facility] S Protein/Osmolality 0.64 (H) <0.27 [facility] S Comment: ? ADDITIONAL INFORMATIO N ? On 03/20/2014 the total protein assay me thod changed resulting ? in approximately a 20% increase in prote in values. ? Predicted 24 Hr Protein 620 MG/24 H [facility] C LINIC [facility] Predicted Range 197-1952 MG/24 H [facility] [place] [facility] Hemoglobin, QL Negative Negative [facility] Specimen Anatomical Collection Method Collection Time Receive d Time (Source) Location / / Volume Laterality 11/23/2014 1:41 AM 5 1:41 CDT AM CDT Berkley Kaufman M.D. LAB URINE ORDERABLES Performing Organization Address City/[facility]/ZIP Code Phon e Number [facility] LABORATORIES - [address] [address] 05 [facility] Creatinine, Random, Urine (11/23/2014 1:41 AM CDT) [facility] Method Time Signature Creatinine, 169 Used to [facility] Random, U normalize LABORATORIES - other; [facility] values. MG/DL CAMPUS Specimen Anatomical Collection Method Collection Time Receive d Time (Source) Location / / Volume Laterality 11/23/2014 1:41 AM 5 1:41 CDT AM CDT Berkley Kaufman M.D. LAB URINE ORDERABLES Performing Organization Address City/[facility] Phon e Number [facility]ATORIES - [address] [address] 05 [facility] (ABNORMAL) Blood Gas without Coox, Arterial (11/23/2014 12:42 AM CDT) [facility] Method Time Signature Arterial Art Line [facility] Sample Site [facility] Comment: Drawn From Arterial Line FIO2 0.35 .21=AIR [facility] Comment: Drawn From Arterial Line Device BPAP [facility] Comment: Drawn From Arterial Line Spont. breaths/min 16 [facility] Comment: Drawn From Arterial Line pO2 113 (H) 80 - 100 MM HG [facility] Comment: Drawn From Arterial Line pCO2 62 (H) 35 - 45 MM HG [facility] Comment: Drawn From Arterial Line pH 7.28 (L) 7.35 - 7.45 PH [facility] Comment: Drawn From Arterial Line Base Excess 2 -2 - 2 MMOL/L [facility] Comment: Drawn From Arterial Line HCO3 28 (H) 22 - 26 MMOL/L [facility] Comment: Drawn From Arterial Line Specimen Anatomical Collection Method Collection Time Receive d Time (Source) Location / / Volume Laterality 11/23/2014 12:42 11/23/2014 AM CDT 12:42 AM CDT Narrative [facility] - 11/23/2014 12:54 AM CDT Drawn From Arterial Line Ernestina Tao M.D. LAB BLOOD NON ADD-ON Performing Organization Address City/State/ZIP Code Phon e Number [facility] - [address] [address] 05 [facility] (ABNORMAL) BMP (Basic Metabolic Panel) (11/23/2014 12:42 AM CDT) P athologist Signature Sodium, P 140 135 - 145 [facility] MMOL/L [facility] Comment: Drawn From Arterial Line Potassium, P 4.9 3.6 - 5.2 MMOL/L [facility] Comment: Drawn From Arterial Line eGFR Non-Black/ 24 (L) >60 ML/MIN/BSA [facility] S Comment: Drawn From Arterial Line eGFR-Black/ 29 (L) >60 ML/MIN/BSA [facility] S Comment: Drawn From Arterial Line BUN (Blood Urea Nitrogen), S 59 (H) 8 - 24 MG/DL [facility] S Comment: Drawn From Arterial Line HX Bicarbonate, P/S 28 22 - 29 MMOL/L [facility] Comment: Drawn From Arterial Line Glucose, S 88 70 - 140 MG/DL [facility] Comment: Drawn From Arterial Line Anion Gap 13 7 - 15 [facility] Comment: Drawn From Arterial Line Chloride, S 99 98 - 107 MMOL/L [facility] PAM LABORATORIES - [facility] Comment: Drawn From Arterial Line Creatinine 2.8 (H) 0.8 - 1.3 MG/DL [facility] L ABORATORIES - [facility] Comment: Drawn From Arterial Line Specimen Anatomical Collection Method Collection Time Receive d Time (Source) Location / / Volume Laterality 11/23/2014 12:42 11/23/2014 AM CDT 12:42 AM CDT Narrative [facility] - [facility] - 11/23/2014 1:24 AM CDT Drawn From Arterial Line Ernestina Tao M.D. LAB BLOOD ADD-ON Performing Organization Address City/[facility]/ZIP [place] [facility] Phon e Number [facility] LABORATORIES - [address] [place] [address] 05 [facility] Glucose, POCT (11/22/2014 10:17 PM CDT) [facility] Method Time Signature Glucose, POCT, 86 70 - 140 [facility] B MG/DL LABORATORIES [facility] Sample Site, [place] [facility] Blood Gas, LABORATORIES - POCT [facility] Specimen Anatomical Collection Method Collection Time Receive d Time (Source) Location / / Volume Laterality 11/22/2014 10:17 11/22/2014 PM CDT 10:17 PM CDT Historical Provider LAB POCT ORDERABLES-MANUAL Performing Organization Address City/State/ZIP Code Phon e Number [facility] LABORATORIES - [address] [place] [address] 05 [facility] (ABNORMAL) Blood Gas with Coox, Arterial (11/22/2014 9:53 PM CDT) [facility] Method Time Signature Arterial Art Line [facility] Sample Site [facility] FIO2 0.35 .21=AIR [facility] pCO2 59 (H) 35 - 45 [facility] MM HG [facility] pH 7.29 (L) 7.35 - [facility] 7.45 PH [facility] Base Excess 1 -2 - 2 [facility] MMOL/L [facility] HCO3 27 (H) 22 - 26 [facility] MMOL/L [facility] Hb 13.7 13.5 - [facility] 17.5 G/DL [facility] O2Hb 95.7 94.0 - [facility] 98.0 % [facility] COHb 1.0 <3.0 % [facility] MetHb <1.0 <1.6 % [facility] LABORATORIES - [facility] Device BPAP [facility] pO2 102 (H) 80 - 100 [facility] MM HG [facility] CtO2 18.6 (L) 21.0 - [facility] 23.0 VOL LABORATORIES - % [facility] Specimen Anatomical Collection Method Collection Time Receive d Time (Source) Location / / Volume Laterality 11/22/2014 9:53 PM 5 9:53 CDT PM CDT Ernestina Tao M.D. LAB BLOOD NON ADD-ON Performing Organization Address City/[facility]/ZIP Code Phon e Number [facility] LABORATORIES - [address] Potassium (11/22/2014 9:53 PM CDT) P athologist Signature Potassium, S 5.0 3.6 - 5.2 [facility] MMOL/L [facility] Specimen Anatomical Collection Method Collection Time Receive d Time (Source) Location / / Volume Laterality 11/22/2014 9:53 PM 5 9:53 CDT PM CDT Ernestina Tao M.D. LAB BLOOD ADD-ON Performing Organization Address City/[facility]/ZIP Code Phon e Number [facility] - [address] [address] 05 [facility] Glucose, POCT (11/22/2014 9:48 PM CDT) P athologist Signature Glucose, POCT, 91 70 - 140 [facility] B MG/DL LABORATORIES - [facility] Sample Site, ARTL [facility] Blood Gas, LABORATORIES - POCT [facility] Specimen Anatomical Collection Method Collection Time Receive d Time (Source) Location / / Volume Laterality 11/22/2014 9:48 PM 5 9:48 CDT PM CDT Historical Provider LAB POCT ORDERABLES-MANUAL Performing Organization Address City/[facility]/ZIP [facility] [place] Phon e Number [facility] - [address] [address] 05 [facility] (ABNORMAL) Cardiac Biomarker Panel (11/22/2014 9:24 PM CDT) Patholo gist Method Time Signature Troponin T, S 0.03 (H) <0.01 [facility] NG/ML [facility] Troponin T 3H, 0.04 (H) <0.01 [facility] S NG/ML [facility] Troponin Delta 0.01 NG/ML [facility] Delta Interp Not Sig [facility] Comment: No significant delta observed. Troponin Delta 0.01 NG/ML [facility] Troponin T 6H, S 0.04 (H) <0.01 NG/ML [facility] INIC [facility] Delta Interp Not Sig [facility] Comment: No significant delta observed. Specimen Anatomical Collection Method Collection Time Receive d Time (Source) Location / / Volume Laterality 11/22/2014 9:24 PM 5 9:24 CDT PM CDT Kemal Heredia M.D. LAB BLOOD ADD-ON Performing Organization Address City/[facility]/ZIP [facility] [place] Phon e Number [facility] - [address] [address] 05 [facility] Glucose, POCT (11/22/2014 9:20 PM CDT) P athologist Signature Glucose, POCT, 96 70 - 140 [facility] B MG/DL [facility] Sample Site, ARTL [facility] Blood Gas, LABORATORIES - POCT [facility] Specimen Anatomical Collection Method Collection Time Receive d Time (Source) Location / / Volume Laterality 11/22/2014 9:20 PM 5 9:20 CDT PM CDT Historical Provider LAB POCT ORDERABLES-MANUAL Performing Organization Address City/State/[facility] Phon e Number [facility] - [address] [address] 05 [facility] (ABNORMAL) Glucose, POCT (11/22/2014 8:43 PM CDT) Patholo gist Method Time Signature Glucose, POCT, 154 (H) 70 - 140 [facility] B MG/DL [facility] Sample Site, ARTLINE [facility] Blood Gas, LABORATORIES - POCT [facility] Specimen Anatomical Collection Method Collection Time Receive d Time (Source) Location / / Volume Laterality 11/22/2014 8:43 PM 5 8:43 CDT PM CDT Historical Provider LAB POCT ORDERABLES-MANUAL Performing Organization Address City/[facility]/ZIP Code Phon e Number [facility] - [address] [address] 05 [facility] Glucose, POCT (11/22/2014 8:15 PM CDT) [facility] Method Time Signature Glucose, POCT, 111 70 - 140 [facility] B MG/DL LABORATORIES - [facility] Sample Site, Venstick [facility] Blood Gas, LABORATORIES - POCT [facility] Specimen Anatomical Collection Method Collection Time Receive d Time (Source) Location / / Volume Laterality 11/22/2014 8:15 PM 5 8:15 CDT PM CDT Historical Provider LAB POCT ORDERABLES-MANUAL Performing Organization Address [facility] Phon e Number [facility] - [address] [address] 05 [facility] ECG 12 Lead (11/22/2014 7:48 PM CDT) Specimen (Source) Anatomical Collection Method Collection Time Re ceived Time Location / / Volume Laterality 11/22/2014 7:48 PM CDT [facility]IOLOGY SYSTEM - 11/22/2014 8:09 PM CDT 22Nov2014 19:48 VENTRICULAR RATE 58 Atrial flutter with variable A-V block Right bundle branch block When compared with ECG of 22-NOV-2014 12 :14, QRS axis has changed [id number]^CARL ??^GLORIA Graham Procedure Note Gloria May M.D., M.B. - 11/27/2017F ormatting of this note might be different from the original. 22Nov2014 19:48 VENTRICULAR RATE 58 Atrial flutter with variable A-V block Right bundle branch block When compared with ECG of 22-NOV-2014 12 :14, QRS axis has changed [id number]^CARL MENDEZ^GLORIA Graham Emelia Gay, P.A.-C., M.S. ECG ORDERABLES Performing Organization Address City/[facility]/ZIP Code Phon e Number HX [facility] RADIOLOGY SYSTEM [address] [place] [address], U SA (ABNORMAL) Blood Gas with Coox, Arterial (11/22/2014 6:57 PM CDT) [facility] Method Time Signature Device BPAP [facility] Spont. 14 [facility] breaths/min [facility] pH 7.28 (L) 7.35 - [facility] 7.45 PH [facility] Base Excess 1 -2 - 2 [facility] MMOL/L [facility] O2Hb 94.2 94.0 - [facility] 98.0 % [facility] COHb 1.5 <3.0 % [facility] Arterial Art Line [facility] Sample Site [facility] FIO2 0.35 .21=AIR [facility] pO2 88 80 - 100 [facility] MM HG [facility] pCO2 61 (H) 35 - 45 [facility] MM HG [facility] HCO3 27 (H) 22 - 26 [facility] MMOL/L [facility] Hb 14.8 13.5 - [facility] 17.5 G/DL [facility] MetHb <1.0 <1.6 % [facility] CtO2 19.6 (L) 21.0 - [facility] 23.0 VOL LABORATORIES - % [facility] Specimen Anatomical Collection Method Collection Time Receive d Time (Source) Location / / Volume Laterality 11/22/2014 6:57 PM 5 6:57 CDT PM CDT Nathalie Cosby R.N. LAB BLOOD NON ADD-ON Performing Organization Address City/State/ZIP Code Phon e Number [facility] - [address] [place], [place] [address] [facility] (ABNORMAL) Blood Gas with Coox, Arterial (11/22/2014 4:31 PM CDT) [facility] gist Method Time Signature Arterial Art Line [facility] Sample Site [facility] FIO2 0.35 .21=AIR [facility] pO2 82 80 - 100 [facility] MM HG [facility] pCO2 69 (H) 35 - 45 [facility] MM HG [facility] pH 7.23 (L) 7.35 - [facility] 7.45 PH [facility] Base Excess 1 -2 - 2 [facility] MMOL/L [facility] HCO3 28 (H) 22 - 26 [facility] MMOL/L [facility] Hb 14.5 13.5 - [facility] 17.5 G/DL [facility] O2Hb 93.2 (L) 94.0 - [facility] 98.0 % LABORATORIES - [facility] COHb 1.0 <3.0 % [facility] Device BPAP [facility] Spont. 14 [facility] breaths/min [facility] - [facility] MetHb <1.0 <1.6 % [facility] CtO2 19.0 (L) 21.0 - [facility] 23.0 VOL LABORATORIES - % [facility] Specimen Anatomical Collection Method Collection Time Receive d Time (Source) Location / / Volume Laterality 11/22/2014 4:31 PM 5 4:31 CDT PM CDT Radha Peña APRN, C.N.P. LAB BLOOD NON ADD-ON Performing Organization Address City/[facility]/ZIP Code Phon e Number [facility] - [address] [address] 05 [facility] Magnesium (11/22/2014 4:31 PM CDT) P athologist Signature Magnesium, S 1.8 1.7 - 2.3 [facility] MG/DL [facility] Specimen Anatomical Collection Method Collection Time Receive d Time (Source) Location / / Volume Laterality 11/22/2014 4:31 PM 5 4:31 CDT PM CDT Radha Peña APRN, C.N.P. LAB BLOOD ADD-ON Performing Organization Address City/State/[facility] Code Phon e Number [facility] - [address] [address] 05 [facility] (ABNORMAL) CBC without Differential (11/22/2014 4:31 PM CDT) Patholo gist Method Time Signature Erythrocytes 4.85 4.32 - [facility] 5.72 LABORATORIES - X10(12)/L [facility] MCV 94.2 81.2 - [facility] 95.1 FL [facility] Hemoglobin 14.2 13.5 - [facility] 17.5 G/DL [facility] - [facility] Hematocrit 45.7 38.8 - [facility] 50.0 % [facility] RBC Distrib 16.5 (H) 11.8 - [facility] Width 15.6 % [facility] Platelet Count 166 150 - 450 [facility] X10(9)/L LABORATORIES - [facility] Leukocytes 15.5 (H) 3.5 - [facility] 10.5 LABORATORIES - X10(9)/L [facility] Specimen Anatomical Collection Method Collection Time Receive d Time (Source) Location / / Volume Laterality 11/22/2014 4:31 PM 5 4:31 CDT PM CDT Radha Peña APRN, C.N.P. LAB BLOOD ADD-ON Performing Organization Address City/[facility] Code Phon e Number [facility] - [address] [place] [address] [facility] (ABNORMAL) Electrolyte (Chem 4) Panel (11/22/2014 4:31 PM CDT) [facility] Method Time Signature Chloride, S 96 (L) 98 - 107 [facility] MMOL/L LABORATORIES - [facility] HX Bicarbonate, 26 22 - 29 [facility] P/S MMOL/L LABORATORIES - [facility] eGFR-Black/Afri 30 (L) >60 [facility] can Wallisian ML/MIN/BS LABORATORIES - A [facility] BUN (Blood Urea 52 (H) 8 - 24 [facility] Nitrogen), S MG/DL LABORATORIES - [facility] Sodium, S 136 135 - 145 [facility] MMOL/L [facility]ATORIES - [facility] Potassium, S 5.8 (H) 3.6 - 5.2 [facility] MMOL/L LAB[facility]ATORIES - [facility] Creatinine 2.7 (H) 0.8 - 1.3 [facility] MG/DL LABORATORIES - [facility] eGFR 25 (L) >60 [facility] Non-Black/Afric ML/MIN/BS LABORATORIES - an Wallisian A [facility] Anion Gap 14 7 - 15 [facility] - [facility] Glucose, S 145 (H) 70 - 140 [facility] MG/DL LAB[facility]ATORIES - [facility] Specimen Anatomical Collection Method Collection Time Receive d Time (Source) Location / / Volume Laterality 11/22/2014 4:31 PM 5 4:31 CDT PM CDT Radha Peña APRN, C.N.P. LAB BLOOD ADD-ON Performing Organization Address City/State/ZIP Code Phon e Number [facility] - [address] [place], [place] [address] [facility] Lactate (11/22/2014 4:31 PM CDT) athologist Signature Lactate, P 0.9 0.6 - 2.3 [facility] MMOL/L LABORATORIES - [facility] Specimen Anatomical Collection Method Collection Time Receive d Time (Source) Location / / Volume Laterality 11/22/2014 4:31 PM 5 4:31 CDT PM CDT Radha Peña APRN, C.N.P. LAB BLOOD NON ADD-ON Performing Organization Address City/[facility]/ZIP Code Phon e Number [facility] - [address] [address] 05 [facility] (ABNORMAL) Phosphorus Inorganic (11/22/2014 4:31 PM CDT) [facility] Method Time Signature Phosphorus 7.0 (H) 2.5 - 4.5 [facility] (Inorganic), S MG/DL LAB[facility]ATORIES - [facility] Specimen Anatomical Collection Method Collection Time Receive d Time (Source) Location / / Volume Laterality 11/22/2014 4:31 PM 5 4:31 CDT PM CDT Radha Peña APRN, C.N.P. LAB BLOOD ADD-ON Performing Organization Address City/[facility]/ZIP Code Phon e Number [facility] - [address] [address] 05 [facility] Calcium, Ionized (11/22/2014 4:31 PM CDT) athologist Signature Calcium, 4.70 4.65 - [facility] Ionized, B 5.30 MG/DL LAB[facility]ATORIES - [facility] Specimen Anatomical Collection Method Collection Time Receive d Time (Source) Location / / Volume Laterality 11/22/2014 4:31 PM 5 4:31 CDT PM CDT Radha Peña APRN, C.N.P. LAB BLOOD NON ADD-ON Performing Organization Address City/[facility]/ZIP Code Phon e Number [facility] - [address] [address] 05 [facility] Glucose, POCT (11/22/2014 4:21 PM CDT) [facility] gist Method Time Signature Glucose, POCT, 133 70 - 140 [facility] B MG/DL [facility]ATORIES - [facility] Sample Site, ARTLINE [facility] Blood Gas, LABORATORIES - POCT [facility] Specimen Anatomical Collection Method Collection Time Receive d Time (Source) Location / / Volume Laterality 11/22/2014 4:21 PM 5 4:21 CDT PM CDT Historical Provider LAB POCT ORDERABLES-MANUAL Performing Organization Address City/[facility]/ZIP Code Phon e Number [facility] - [address] [place], [place] [address] [facility] (ABNORMAL) Glucose, POCT (11/22/2014 3:32 PM CDT) [facility] gist Method Time Signature Glucose, POCT, 147 (H) 70 - 140 [facility] B MG/DL [facility]IES - [facility] Sample Site, [facility] Blood Gas, LABORATORIES - POCT [facility] Specimen Anatomical Collection Method Collection Time Receive d Time (Source) Location / / Volume Laterality 11/22/2014 3:32 PM 5 3:32 CDT PM CDT Historical Provider LAB POCT ORDERABLES-MANUAL Performing Organization Address City/[facility]/ZIP Code Phon e Number [facility] - [address] [place], [place] [address] [facility] (ABNORMAL) Glucose, POCT (11/22/2014 3:06 PM CDT) [facility] Method Time Signature Glucose, POCT, 164 (H) 70 - 140 [facility] B MG/DL [facility]ATORIES - [facility] Sample Site, [facility] Blood Gas, LABORATORIES - POCT [facility] Specimen Anatomical Collection Method Collection Time Receive d Time (Source) Location / / Volume Laterality 11/22/2014 3:06 PM 5 3:06 CDT PM CDT Historical Provider LAB POCT ORDERABLES-MANUAL Performing Organization Address City/[facility]/ZIP Code Phon e Number [facility] - [address] [place], [place] [address] [facility] (ABNORMAL) Blood Gas with Coox, Arterial (11/22/2014 2:32 PM CDT) [facility] Method Time Signature Arterial Art Line [facility] Sample Site [facility] FIO2 0.50 .21=AIR [facility] pO2 109 (H) 80 - 100 [facility] MM HG [facility] pCO2 71 (H) 35 - 45 [facility] MM HG [facility] HCO3 30 (H) 22 - 26 [facility] MMOL/L LABORATORIES [facility] Hb 14.3 13.5 - [facility] 17.5 G/DL [facility] MetHb <1.0 <1.6 % [facility]ATORIES [facility] CtO2 19.5 (L) 21.0 - [facility] 23.0 VOL LABORATORIES - % [facility] Device BPAP [facility] Spont. 20 [facility] breaths/min [facility] pH 7.22 (L) 7.35 - [facility] 7.45 PH [facility] Base Excess 2 -2 - 2 [facility] MMOL/L [facility] O2Hb 96.1 94.0 - [facility] 98.0 % [facility] COHb 1.1 <3.0 % [facility] Specimen Anatomical Collection Method Collection Time Receive d Time (Source) Location / / Volume Laterality 11/22/2014 2:32 PM 5 2:32 CDT PM CDT Berkley Kaufman M.D. LAB BLOOD NON ADD-ON Performing Organization Address City/State/ZIP Code Phon e Number [facility] - [address] [address] [facility] (ABNORMAL) Glucose, POCT (11/22/2014 2:31 PM CDT) [facility] Method Time Signature Glucose, POCT, 166 (H) 70 - 140 [facility] B MG/DL [facility] Sample Site, ARTLINE [facility] Blood Gas, LABORATORIES - POCT [facility] Specimen Anatomical Collection Method Collection Time Receive d Time (Source) Location / / Volume Laterality 11/22/2014 2:31 PM 5 2:31 CDT PM CDT Historical Provider LAB POCT ORDERABLES-MANUAL Performing Organization Address City/[facility]/ZIP [facility] [place] [facility] Phon e Number [facility] - [address] [address] 05 [facility] (ABNORMAL) BMP (Basic Metabolic Panel) (11/22/2014 12:27 PM CDT) [facility] Method Time Signature Creatinine 2.5 (H) 0.8 - 1.3 [facility] MG/DL [facility] eGFR 27 (L) >60 [facility] Non-Black/Afric ML/MIN/BS LABORATORIES - an Wallisian A [facility] HX Bicarbonate, 28 22 - 29 [facility] P/S MMOL/L [facility]ORATORIES - [facility] Glucose, S 138 70 - 140 [facility] MG/DL LAB[facility]ATORIES - [facility] Sodium, P 135 135 - 145 [facility] MMOL/L [facility]IES - [facility] Chloride, S 95 (L) 98 - 107 [facility] MMOL/L [facility]ATORIES - [facility] eGFR-Black/Afri 32 (L) >60 [facility] can Wallisian ML/MIN/BS LABORATORIES - A [facility] BUN (Blood Urea 52 (H) 8 - 24 [facility] Nitrogen), S MG/DL [facility]IES - [facility] Anion Gap 12 7 - 15 [facility]IES - [facility] Potassium, P 6.3 (>) 3.6 - 5.2 [facility] MMOL/L [facility]ATORIES - [facility] Specimen Anatomical Collection Method Collection Time Receive d Time (Source) Location / / Volume Laterality 11/22/2014 12:27 11/22/2014 PM CDT 12:27 PM CDT Ana Gomez M.D. LAB BLOOD ADD-ON Performing Organization Address City/State/ZIP Code Phon e Number [facility] - [address] [address] 05 [facility] ECG 12 Lead (11/22/2014 12:14 PM CDT) Specimen (Source) Anatomical Collection Method Collection Time Re ceived Time Location / / Volume Laterality 11/22/2014 12:14 PM CDT [facility] - 11/22/2014 1:04 PM CDT 22Nov2014 12:14 VENTRICULAR RATE 53 Atrial flutter with 4:1 A-V conduction Right bundle branch block Left anterior fascicular block Bifascicular block No previous ECGs available [id number]^CARL ??^GLORIA Graham Procedure Note Gloria May M.D., M.B. - 11/27/2017F ormatting of this note might be different from the original. 22Nov2014 12:14 VENTRICULAR RATE 53 Atrial flutter with 4:1 A-V conduction Right bundle branch block Left anterior fascicular block Bifascicular block No previous ECGs available [id number]^CARL MENDEZ^GLORIA Graham Emelia Gay, PNoe M.S. ECG ORDERABLES Performing Organization Address City/State/ZIP Code Phon e Number HX [facility] [address] [place] [address], U SA (ABNORMAL) Blood Gas without Coox, Arterial (11/22/2014 12:12 PM CDT) [facility] gist Method Time Signature Arterial R-Radial [facility] Sample Site [facility] FIO2 0.40 .21=AIR [facility] pO2 78 (L) 80 - 100 [facility] MM HG [facility] pCO2 67 (H) 35 - 45 [facility] MM HG [facility] pH 7.24 (L) 7.35 - [facility] 7.45 PH [facility] Base Excess 1 -2 - 2 [facility] MMOL/L [facility] HCO3 28 (H) 22 - 26 [facility] MMOL/L [facility] Device CFM [facility] Spont. 16 [facility] breaths/min [facility] Specimen Anatomical Collection Method Collection Time Receive d Time (Source) Location / / Volume Laterality 11/22/2014 12:12 11/22/2014 PM CDT 12:12 PM CDT Ana Gomez M.D. LAB BLOOD NON ADD-ON Performing Organization Address City/State/ZIP Code Phon e Number [facility]IES - [address] [place], [place] [address] [facility] DX Chest Portable 1 View (11/22/2014 12:05 PM CDT) Anatomical Region Laterality Modality Chest N/A Radiographic Imaging Specimen (Source) Anatomical Collection Method Collection Time Re ceived Time Location / / Volume Laterality 11/22/2014 12:05 PM CDT Impressions 11/22/2014 12:08 PM CDT Shallow inspiration. Perihilar consolidation possibly representing atelectasis or infiltrate. Chest otherwise negative. Electronically signed by: ?? Cuauhtemoc Denton M.D. [phone] 22-Nov-2014 12:08 Narrative 11/22/2014 12:08 PM CDT [...] negative. Electronically signed by: Cuauhtemoc Denton M.D. [phone] 22-Nov-2014 12:08 Emelia Gay, Kristyn., M.S. IMG DIAGNOSTIC IM AGING PROCEDURES (ABNORMAL) Glucose, POCT (11/22/2014 11:00 AM CDT) [facility] Method Time Signature Glucose, POCT, 141 (H) 70 - 140 [facility] B MG/DL [facility] Specimen Anatomical Collection Method Collection Time Receive d Time (Source) Location / / Volume Laterality 11/22/2014 11:00 11/22/2014 AM CDT 11:00 AM CDT Historical Provider LAB POCT ORDERABLES-MANUAL Performing Organization Address City/State/ZIP Code Phon e Number [facility]IES - [address] [place] [address] 05 [facility] (ABNORMAL) Electrolyte (Chem 4) Panel (11/22/2014 9:00 AM CDT) [facility] Method Time Signature Chloride, S 95 (L) 98 - 107 [facility] MMOL/L [facility] HX Bicarbonate, 25 22 - 29 [facility] P/S MMOL/L [facility] Creatinine 2.4 (H) 0.8 - 1.3 [facility] MG/DL [facility] eGFR 28 (L) >60 [facility] Non-Black/Afric ML/MIN/BS LABORATORIES - an [place]ian A [facility] Anion Gap 16 (H) 7 - 15 [facility] Glucose, S 130 70 - 140 [facility] MG/DL [facility] Sodium, S 136 135 - 145 [facility] MMOL/L [facility] Potassium, S 6.8 (>) 3.6 - 5.2 [facility] MMOL/L [facility] eGFR-Black/Afri 34 (L) >60 [facility] can [place]ian ML/MIN/BS LABORATORIES - A [facility] BUN (Blood Urea 48 (H) 8 - 24 [facility] Nitrogen), S MG/DL [facility] Specimen Anatomical Collection Method Collection Time Receive d Time (Source) Location / / Volume Laterality 11/22/2014 9:00 AM 5 9:00 CDT AM CDT Eric Hess M.D. LAB BLOOD ADD-ON Performing Organization Address City/[facility] Phon e Number [facility] - [address] [place], [place] [address] [facility] (ABNORMAL) Blood Gas without Coox, Arterial (11/22/2014 7:15 AM CDT) [facility] Experience Headphones Method Time Signature Device CFM [facility] pO2 56 (L) 80 - 100 [facility] MM HG [facility] pCO2 81 (H) 35 - 45 [facility] MM HG [facility] pH 7.19 (L) 7.35 - [facility] 7.45 PH [facility] Base Excess 2 -2 - 2 [facility] MMOL/L [facility] HCO3 31 (H) 22 - 26 [facility] MMOL/L [facility] Arterial R-Radial [facility] Sample Site [facility] - [facility] FIO2 0.70 .21=AIR [facility] Specimen Anatomical Collection Method Collection Time Receive d Time (Source) Location / / Volume Laterality 11/22/2014 7:15 AM 5 7:15 CDT AM CDT Eric Hess M.D. LAB BLOOD NON ADD-ON Performing Organization Address City/[facility] Code Phon e Number [facility] - [address] [place], [place] [address] [facility] (ABNORMAL) Glucose, POCT (11/22/2014 6:14 AM CDT) [facility] Experience Headphones Method Time Signature Glucose, 157 (H) 70 - 140 [facility] POCT, B MG/DL [facility] - [facility] Sample Site, Capillary [facility] Blood Gas, LABORATORIES - POCT [facility] Last Intake NPO [facility] Specimen Anatomical Collection Method Collection Time Receive d Time (Source) Location / / Volume Laterality 11/22/2014 6:14 AM 5 6:14 CDT AM CDT Historical Provider LAB POCT ORDERABLES-MANUAL Performing Organization Address City/State/ZIP Code Phon e Number [facility] LABORATORIES - [address] [place] [address] [facility] (ABNORMAL) Blood Gas without Coox, Arterial (11/22/2014 12:23 AM CDT) [employer]fire Method Time Signature Device OFM [facility] pO2 60 (L) 80 - 100 [facility] MM HG [facility] Arterial L-Radial [facility] Sample Site [facility] O2 Flow 10.0 L/MIN [facility] pCO2 70 (H) 35 - 45 [facility] MM HG [facility] pH 7.25 (L) 7.35 - [facility] 7.45 PH [facility] Base Excess 3 (H) -2 - 2 [facility] MMOL/L [facility] HCO3 30 (H) 22 - 26 [facility] MMOL/L [facility] Specimen Anatomical Collection Method Collection Time Receive d Time (Source) Location / / Volume Laterality 11/22/2014 12:23 11/22/2014 AM CDT 12:23 AM CDT Berkley Kaufman M.D. LAB BLOOD NON ADD-ON Performing Organization Address City/State/ZIP Code Phon e Number [facility]ORATORIES - [address] [place] [address] [facility] (ABNORMAL) Glucose, POCT (11/21/2014 10:09 PM CDT) [employer]fire Method Time Signature Glucose, 164 (H) 70 - 140 [facility] POCT, B MG/DL [facility] Sample Site, Capillary [facility] Blood Gas, LABORATORIES - POCT [facility] Last Intake NPO [facility] Specimen Anatomical Collection Method Collection Time Receive d Time (Source) Location / / Volume Laterality 11/21/2014 10:09 11/21/2014 PM CDT 10:09 PM CDT Historical Provider LAB POCT ORDERABLES-MANUAL Performing Organization Address City/State/ZIP Code Phon e Number [facility]ATORIES - [address] [place] [address] [facility] (ABNORMAL) Glucose, POCT (11/21/2014 6:10 PM CDT) [facility] Method Time Signature Glucose, POCT, 156 (H) 70 - 140 [facility] B MG/DL [facility] Specimen Anatomical Collection Method Collection Time Receive d Time (Source) Location / / Volume Laterality 11/21/2014 6:10 PM 5 6:10 CDT PM CDT Historical Provider LAB POCT ORDERABLES-MANUAL Performing Organization Address City/[facility] Code Phon e Number [facility]ATORIES - [address] [place], [place] [address] [facility] (ABNORMAL) Glucose, POCT (11/21/2014 2:03 PM CDT) [facility] Signature Glucose, 173 (H) 70 - 140 [facility] POCT, B MG/DL LABORATORIES [facility] Sample Site, Capillary [facility] Blood Gas, LABORATORIES - POCT [facility] Last Intake > 4 hours [facility] Specimen Anatomical Collection Method Collection Time Receive d Time (Source) Location / / Volume Laterality 11/21/2014 2:03 PM 5 2:03 CDT PM CDT Historical Provider LAB POCT ORDERABLES-MANUAL Performing Organization Address City/[facility]/ZIP Code Phon e Number [facility]IES - [address] [address] [facility] (ABNORMAL) Glucose, POCT (11/21/2014 1:15 PM CDT) [facility] Method [place] Signature Glucose, 151 (H) 70 - 140 [facility] POCT, B MG/DL [facility] Sample Site, Capillary [facility] Blood Gas, LABORATORIES - POCT [facility] Specimen Anatomical Collection Method Collection Time Receive d Time (Source) Location / / Volume Laterality 11/21/2014 1:15 PM 5 1:15 CDT PM CDT Historical Provider LAB POCT ORDERABLES-MANUAL Performing Organization Address City/[facility] Phon e Number [facility]ATORIES - [address] [place], [place] [address] [facility] Glucose, POCT (11/21/2014 11:46 AM CDT) [facility] Method [place] Signature Glucose, 140 70 - 140 [facility] POCT, B MG/DL LABORATORIES - [facility] Sample Site, Capillary [facility] Blood Gas, LABORATORIES - POCT [facility] Specimen Anatomical Collection Method Collection Time Receive d Time (Source) Location / / Volume Laterality 11/21/2014 11:46 11/21/2014 AM CDT 11:46 AM CDT Nuno Sawant M.D. LAB POCT ORDERABLES-MANUAL Performing Organization Address [facility] Phon e Number [facility]IES - [address] [address] [facility] Glucose, POCT (11/21/2014 10:43 AM CDT) P athologist Signature Glucose, POCT, 113 70 - 140 [facility] B MG/DL LABORATORIES - [facility] Specimen Anatomical Collection Method Collection Time Receive d Time (Source) Location / / Volume Laterality 11/21/2014 10:43 11/21/2014 AM CDT 10:43 AM CDT Historical Provider LAB POCT ORDERABLES-MANUAL Performing Organization Address City/[facility] Phon e Number [facility]IES - [address] [place], [place] [address] [facility] Glucose, POCT (11/21/2014 9:46 AM CDT) P athologist Signature Glucose, POCT, 115 70 - 140 [facility] B MG/DL LABORATORIES - [facility] Specimen Anatomical Collection Method Collection Time Receive d Time (Source) Location / / Volume Laterality 11/21/2014 9:46 AM 5 9:46 CDT AM CDT Historical Provider LAB POCT ORDERABLES-MANUAL Performing Organization Address City/[facility] Phon e Number [facility]IES - [address] [place], [place] [address] [facility] (ABNORMAL) Glucose, POCT (11/21/2014 8:43 AM CDT) Patholo gist Method Time Signature Glucose, 64 (L) 70 - 140 [facility] POCT, B MG/DL LABORATORIES - [facility] Sample Site, Capillary [facility] Blood Gas, LABORATORIES - POCT [facility] Specimen Anatomical Collection Method Collection Time Receive d Time (Source) Location / / Volume Laterality 11/21/2014 8:43 AM 5 8:43 CDT AM CDT Nuno Sawant M.D. LAB POCT ORDERABLES-MANUAL Performing Organization Address City/[facility]/ZIP Code Phon e Number [facility]IES - [address] [address] [facility] Glucose, POCT (11/21/2014 7:26 AM CDT) [facility] Experience Headphones Method Time Signature Last Intake NPO [facility] Glucose, 91 70 - 140 [facility] POCT, B MG/DL LABORATORIES - [facility] Sample Site, Capillary [facility] Blood Gas, LABORATORIES - POCT [facility] Specimen Anatomical Collection Method Collection Time Receive d Time (Source) Location / / Volume Laterality 11/21/2014 7:26 AM 5 7:26 CDT AM CDT Historical Provider LAB POCT ORDERABLES-MANUAL Performing Organization Address City/[facility] Code Phon e Number [facility]IES - [address] [place], [place] [address] [facility] (ABNORMAL) Glucose, POCT (11/21/2014 6:57 AM CDT) [facility] Experience Headphones Method Time Signature Last Intake > 4 hours [facility] Glucose, 61 (L) 70 - 140 [facility] POCT, B MG/DL LABORATORIES - [facility] Sample Site, Capillary [facility] Blood Gas, LABORATORIES - POCT [facility] Specimen Anatomical Collection Method Collection Time Receive d Time (Source) Location / / Volume Laterality 11/21/2014 6:57 AM 5 6:57 CDT AM CDT Historical Provider LAB POCT ORDERABLES-MANUAL Performing Organization Address City/[facility]/ZIP Code Phon e Number [facility]IES - [address] [address] [facility] documented in this encounter Visit Diagnoses Not on filedocumented in this encounter Additional Health Concerns Assessment Noted Time PHQ-9 Depression Total Score: 18 02/14/2013 9:53 AM CD T documented as of this encounter
--- OUTSIDE RECORDS SUMMARY | 2022-08-19 10:34 | XMS_ITS | Encounter Summary ---
:1960 Author Organization [facility] Address [address] [place] [address] Care Team Providers Name Role Phone Unavailable Primary Care Provider Unavailable Encounter Details Date Type Department Care Team Description 10/03/2014 Hospital Encounter HX [facility] Cintia Cobb M.D. 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 - 10/06/2014 2:30 PM ETCH OPERATOR [employer] lab results From: CINTIA KILGORE MD To: CINTIA KILGORE MD; Sent: 10/06/2014 14:30:36 ETCH OPERATOR [employer]ERS Subject: lab results Spoke with patient re: [...] bypass vs lap band procedure. Source: [facility] POWERCHART Document Id: [id number] Miscellaneous - Cintia Cobb M.D. - 10/06/2014 2:26 PM ETCH OPERATOR [employer] F/U on referral Document Contains Addenda Addendum by CINTIA KILGORE MD on 09 October 2014 13:42:37 ETCH OPERATOR [employer] From: CINTIA KILGORE MD To: NICHELLE NATHAN; Sent: 10/09/2014 13:42:37 ETCH OPERATOR [employer] Subject: RE: F/U on referral Thanks. [place]! Addendum by NICHELLE NATHAN on 09 October 2014 13:17:36 ETCH OPERATOR [employer] From: NICHELLE NATHAN To: CINTIA KILGORE MD; Sent: 10/09/2014 13:17:36 ETCH OPERATOR [employer]ERS Subject: RE: F/U on referral Patient has appt[facility] with [facility] on Oct[facility]. Addendum by NICHELLE NATHAN on 09 October 2014 08:01:25 ETCH OPERATOR [employer]ERS From: NICHELLE NATHAN To: CINTIA KILGORE MD; Sent: 10/09/2014 08:01:25 ETCH OPERATOR [employer] Subject: RE: F/U on referral I did attempt to call him, no answer again. It doesn't appear he has VM, so we are not able to leavehim a message either. Addendum by CINTIA KILGORE MD on 06 October 2014 20:29:14 ETCH OPERATOR [employer] From: CINTIA KILGORE MD To: NICHELLE NATHAN; Sent: 10/06/2014 20:29:14 ETCH OPERATOR [employer] Subject: RE: F/U on referral Was patient updated with this info? Cintia Segura Addendum by NICHELLE NATHAN on 06 October 2014 15:52:27 ETCH OPERATOR [employer] From: NICHELLE NATHAN To: NICHELLE NATHAN; Sent: 10/06/2014 15:52:27 ETCH OPERATOR [employer] Subject: FW: F/U on referral Cintia from [facility], called back to report that she was not successful in reaching patient. She asked that I note that they did attempt to call and if he wishes to call them directly he can do so [phone]. Addendum by NICHELLE NATHAN on 06 October 2014 15:29:30 ETCH OPERATOR [employer] From: NICHELLE NATHAN To: CINTIA KILGORE MD; Sent: 10/06/2014 15:29:30 ETCH OPERATOR [employer] Subject: RE: F/U on referral I contacted [...] MD To: NICHELLE NATHAN; Sent: 10/06/2014 14:26:32 ETCH OPERATOR [employer] Subject: F/U on referral Patient has not yet heard from [facility] re: gastric banding consult appt. Can you look into this? Thanks, Cintia [facility] Document Id: [id number] Miscellaneous - Conversion, Historical Provider Ser - 10/03/2014 11:59 PM ETCH OPERATOR [employer] Coding Summary-Paper Based CODING DATE: 10/09/2014 FINAL CA [facility] STATUS: * Discharged to Home or [...] BLISS Date Saved: 10/09/2014 12:51 pm Source: [facility] Document Id: [id number] documented in this encounter Plan of Treatment Not on filedocumented as of this encounter Procedures Procedure Name Priority Date/Time Associated Comments Diagnosis ALBUMIN, RANDOM, U Routine 10/03/2014 5:00 PM Res ults for this ETCH OPERATOR [employer] procedure are i n the results section. HEMOGLOBIN A1C, B Routine 10/03/2014 5:00 PM Resu lts for this ETCH OPERATOR [employer] procedure are i n the results section. BASIC METABOLIC Routine 10/03/2014 5:00 PM Result s for this PANEL, S/P ETCH OPERATOR [employer] procedure are i n the results section. documented in this encounter Results (ABNORMAL) Microalbumin, Random, Urine (10/03/2014 5:00 PM ETCH OPERATOR [employer]) Analysis [facility]formed At [facility] Time Signature HXU Albumin % 1566.4 (H) 12.0 - POWERCHART 30.0 MGL Creatinine, 91.9 30.0 - POWERCHART Random, U 125.0 MGDL Albumin/Creati 1704 (H) 0 - 25 POWERCHART nine Ratio MGGM Specimen (Source) Anatomical Collection Method Collection Time Re ceived Time Location / / Volume Laterality Urine 10/03/2014 5:00 PM ETCH OPERATOR [employer] Cintia Copeland M.D. LAB URINE ORDERABLES Performing Organization Address City/State/ZIP Code Phon e Number POWERCHART (ABNORMAL) Hemoglobin A1c (10/03/2014 5:00 PM ETCH OPERATOR [employer]) P athologist Signature Hemoglobin A1c, 7.2 (H) <=5.6 A1C POWERCHART B Specimen (Source) Anatomical Collection Method Collection Time Re ceived Time Location / / Volume Laterality Blood 10/03/2014 5:00 PM ETCH OPERATOR [employer] Cintia Copeland M.D. LAB BLOOD ADD-ON Performing Organization Address City/[facility] Phon e Number POWERCHART (ABNORMAL) BMP (Basic Metabolic Panel) (10/03/2014 5:00 PM ETCH OPERATOR [employer]) Analysis Performed At Patho logist Time Signature [...] MMOLL HXeGFR (MDRD) 55 (L) >=60 POWERCHART [id number] eGFR >60 >=60 POWERCHART Black/ [id number] [place] Specimen (Source) Anatomical Collection Method Collection Time Re ceived Time Location / / Volume Laterality Blood 10/03/2014 5:00 PM ETCH OPERATOR [employer] Cintia Copeland M.D. LAB BLOOD ADD-ON Performing Organization Address City/State/ZIP Code Phon e Number POWERCHART documented in this encounter Visit Diagnoses Not on filedocumented in this encounter Additional Health Concerns Assessment Noted Time PHQ-9 Depression Total Score: 18 02/14/2013 9:53 AM CD T documented as of this encounter
--- OUTSIDE RECORDS SUMMARY | 2022-08-19 10:34 | XMS_ITS | Encounter Summary ---
:1960 Author Organization [facility] Address [address] [place] [address] Care Team Providers Name Role Phone Unavailable Primary Care Provider Unavailable Encounter Details Date Type Department Care Team Description 10/24/2014 Hospital Encounter HX [facility] Cintia Aguirre M.D. [address] [place] [phone] (Wo rk) Social History Tobacco Use Types Packs/Day Years Used Date Smoking Tobacco: Never Assessed Sex Assigned at Date Recorded Not on file documented as of this encounter Last Filed Vital Signs Vital Sign Reading Time Taken Comments Blood Pressure 151/80 10/24/2014 6:00 PM GEOTHERMAL INSTALLER Pulse 46 10/24/2014 6:00 PM GEOTHERMAL INSTALLER Temperature - - Respiratory Rate 16 10/24/2014 6:00 PM GEOTHERMAL INSTALLER Oxygen Saturation - - Inhaled Oxygen Concentration - - Weight 155 kg (341 lb 11.4 oz) 10/24/2014 6:00 PM GEOTHERMAL INSTALLER Height 185 cm (6' 0.84) 10/24/2014 6:00 PM GEOTHERMAL INSTALLER Body Mass Index 45.29 10/24/2014 6:00 PM GEOTHERMAL INSTALLER documented in this encounter Progress Notes Cintia Cobb M.D. - 10/24/2014 5:28 AM CST Clinic Full Note CHIEF COMPLAINT/REASON FOR VISIT Review some stuff with Dr. Song HISTORY OF PRESENT ILLNESS Ed is a 54 year old male who presents today to follow up on recent visit to the [facility] bariatric surgery program. He reports that this appointment went okay. He also saw a dietitian and they will be getting records from [place] prior to scheduling an appt with the surgeon. They think he would be a good candidate for the gastric sleeve. Patient is interested in this because the recovery time would be shorter than the gastric bypass procedure. He states that he cannot afford to be off work for that long. He has follow up with [facility] to review bariatric surgery options tomorrow. He [...] Lab Hgb A1c 7.2 % 10/03/2014 10:30 GEOTHERMAL INSTALLER Outside Lab Creatinine (Serum) 1.34 mg/dL 10/03/2014 10:30 GEOTHERMAL INSTALLER IMPRESSION/REPORT/PLAN 1. DM2 Blood sugars continue to [...] Ordered: OV Est Pt Level 4 - 53937 - 25 min 2. Obesity Medically Complicated We reviewed the note from [facility] They need [facility]'s records and I have asked him to follow up to ensure that has happened. Also reviewed that he needs to get down to a weight of 331. Recommended that he review the sleeve option with [place] at his appointment tomorrow. Ordered: OV Est Pt Level 4 - [id number] - 25 min 3. Hypertension HTN NOS Blood pressure still a little high. Ordered: OV Est Pt Level 4 - [id number] - 25 min 4. Insufficiency Renal NOS Creatinine a little elevated with increased diuretic dose, but stable. He does showing spilling of protein into his urine. Ordered: OV Est Pt Level 4 - [id number] - 25 min 5. Edema Pedal Recommended that he wear his compressive stockings daily, but take them off at night. Recommended using dish gloves to put them on. Ordered: OV Est Pt Level 4 - [id number] - 25 min Electronically Signed By: CINTIA KILGORE MD On: 10/25/2014 05:33 AM Source: [facility] POWERCHART Document Id: [id number] HERMAL INSTALLER documented in this encounter Miscellaneous Notes Miscellaneous - Cintia Cobb M.D. - 10/24/2014 6:48 PM GEOTHERMAL INSTALLER Ambulatory Patient Summary [address] [phone] Visit Information Name: LAZ LUNA [facility] Number: [id number] Current Date: 10/24/2014 18:48:50 Physicians [...] needed. Your Goals/Additional instructions: Source: [facility] POWERCHART Document Id: [id number] HERMAL INSTALLER Miscellaneous - Cintia Cobb M.D. - 10/24/2014 6:48 PM GEOTHERMAL INSTALLER Ambulatory Discharge Medication List [address] [place], [place] [phone] Visit Information Name: LAZ LUNA [facility] Number: [id number] Visit Date: 10/24/2014 18:48:48 Attending [...] MD Signed On:24-OCT-2014 18:48:34 Additional Information: Source: [facility] POWERCHART Document Id: [id number] HERMAL INSTALLER Miscellaneous - Shawnee Haji L.P.N. - 10/24/2014 6:00 PM CST Adult Car Wash Attendant Automatic Intake/History Adult Car Wash Attendant Automatic Intake/History Entered On: 10/24/2014 18:04 GEOTHERMAL INSTALLER Performed On: 10/24/2014 18:00 GEOTHERMAL INSTALLER by SHAWNEE HAJI LPN Intake Chief Complaint : Review some stuff with Dr. Song Temperature Core : 35.6 DegC(Converted to: 96.1 DegF) (LOW) Peripheral Pulse Rate : 46 /min (<LLOW) Respiratory Rate : 16 /min Systolic Blood Pressure : 151 mmHg (HI) Diastolic Blood Pressure : 80 mmHg NIBP Mean : 104 mmHg SpO2 : 96 % SHAWNEE HAJI LPN - 10/24/2014 18:05 GEOTHERMAL INSTALLER Heart Rhythm : Regular BP Location : [...] kg/m2 SHAWNEE HAJI LPN - 10/24/2014 18:00 GEOTHERMAL INSTALLER General Info Information Given By : Patient Preferred Communication Mode : Verbal Languages : Spanish Is Patient Female and 13-50 no hysterectomy : No SHAWNEE HAJI LPN - 10/24/2014 18:00 GEOTHERMAL INSTALLER Subjective Pain Symptoms : No SHAWNEE HAJI LPN - 10/24/2014 18:00 GEOTHERMAL INSTALLER Dependent Habits Tobacco Use/Currently Using : No Tobacco Use/Last 12 months : No Tobacco Use/Advised to Quit : No Exposure to Tobacco Smoke : Care provider denies smoking in home Smoking Status : Never smoker SHAWNEE HAJI LPN - 10/24/2014 18:00 GEOTHERMAL INSTALLER Tobacco Use Grid Last Use : never SHAWNEE HAJI LPN - 10/24/2014 18:00 GEOTHERMAL INSTALLER Alcohol Use : No SHAWNEE HAJI LPN - 10/24/2014 18:00 GEOTHERMAL INSTALLER Caffeine Use Grid Caffeine Use : Current Type : Coffee, Soft drinks Frequency : Weekly Amount : soda- weekly; coffee- 1x/week SHAWNEE HAJI LPN - 10/24/2014 18:00 GEOTHERMAL INSTALLER Recreational Drug Use Grid Drug Use : None SHAWNEE HAJI LPN - 10/24/2014 18:00 GEOTHERMAL INSTALLER ID Screen Drug Resistant Organism : No Travel Within Last 21 Days : No SHAWNEE HAJI LPN - 10/24/2014 18:00 GEOTHERMAL INSTALLER Source: [employer] Document Id: [id number] GEOTHERMAL INSTALLER!10 HERMAL INSTALLER documented in this encounter Plan of Treatment Not on filedocumented as of this encounter Visit Diagnoses Not on filedocumented in this encounter Additional Health Concerns Assessment Noted Time PHQ-9 Depression Total Score: 18 02/14/2013 9:53 AM CD T documented as of this encounter
--- OUTSIDE RECORDS SUMMARY | 2022-08-19 10:34 | XMS_ITS | Encounter Summary ---
:1960 Author Organization [facility] Address [address] [place] [address] Care Team Providers Name Role Phone Unavailable Primary Care Provider Unavailable Encounter Details Date Type Department Care Team Description 11/20/2014 Hospital Encounter HX [facility] [place] Cintia Aguirre M.D. [address] [place] [phone] (Wo rk) Social History Tobacco Use [...] and knee. Vascular calcification. Kelsey Peterson MD. [phone] 20-Nov-2014 11:57 [1] Report 20-Nov-2014 11:54:00 Exam: [...] Ordered: OV Est Pt Level 4 - 45606 - 25 min 2. Pain Hip R Evidence of arthritis on xray. Again hopefully, rest and weight loss will improve his discomfort. Tylenol for pain. Ordered: OV Est Pt Level 4 - 23814 - 25 min 3. Insufficiency Renal NOS Patient's last creatinine was up a little more at 1.43. I did have the opportunity to speak with his surgical team in [place]. Certainly his diabetes and hypertension could be damaging his kidneys and the diuretics are exacerbating that. I am hoping that as he loses weight, we will be able to decrease some of him medications and hopefully see some improvement. Ordered: OV Est Pt Level 4 - 61036 - 25 min 4. Obesity Medically Complicated [...] Ordered: OV Est Pt Level 4 - 29669 - 25 min FOOTNOTES [1]XR Knee Right 2 or less views; CLARKE SOLIZ 11/20/2014 11:52 CDT [2]XR Hip Right 2 or more views; CLARKE SOLIZ 11/20/2014 11:51 CDT Electronically Signed By: CINTIA KILGORE MD On: 11/21/2014 07:08 AM Source: [employer] Document Id: [id number] documented in this encounter Miscellaneous Notes Miscellaneous [...] LPN, RT - 11/20/2014 12:06 CDT Source: [employer] Document Id: [id number] CDT!8 Miscellaneous - Cintia Cobb M.D. - 11/20/2014 11:18 AM CDT Ambulatory Patient Summary [address] [id number] Visit Information Name: LAZ LUNA [facility] Number: [id number] Current Date: 11/20/2014 11:18:39 [...] appointment detail needed. Your Goals/Additional instructions: Source: [employer] POWERCHART Document Id: [id number] Miscellaneous - Cintia Cobb M.D. - 11/20/2014 11:18 AM CDT Ambulatory Discharge Medication List [address] [id number] Visit Information Name: LAZ LUNA [facility] Number: [id number] Visit Date: 11/20/2014 11:18:37 [...] Signed By: Signed On: Additional Information: Source: [facility] POWERCHART Document Id: [id number] Miscellaneous - Anne Marie Tuttle L.P.N. - 11/20/2014 10:51 AM CDT Adult Licensed Real Estate Broker Intake/History Adult Licensed Real Estate Broker Intake/History Entered On: 11/20/2014 10:53 CDT Performed [...] Preferred Communication Mode : Verbal Languages : Tunisian Is Patient Female and 13-50 no hysterectomy : No ANNE MARIE TUTTLE LPN, RT - 11/20/2014 10:51 CDT Subjective Pain Symptoms : Yes ANNE MARIE TUTTLE LPN, RT - 11/20/2014 10:51 CDT Pain Scale Pain Scale Verbal 0-10 : Open ANNE MARIE TTUTLE LPN, RT - 11/20/2014 10:51 CDT Pain [...] LPN, RT - 11/20/2014 10:51 CDT Source: [employer] Document Id: [id number] CDT!53 documented in this encounter Plan of Treatment Not on filedocumented as of this encounter Visit Diagnoses Not on filedocumented in this encounter Additional Health Concerns Assessment Noted Time PHQ-9 Depression Total Score: 18 02/14/2013 9:53 AM CD T documented as of this encounter
--- OUTSIDE RECORDS SUMMARY | 2022-08-19 10:34 | XMS_ITS | Encounter Summary ---
:1960 Author Organization [facility] Address [address] [place] [address] Care Team Providers Name Role Phone Unavailable Primary Care Provider Unavailable Encounter Details Date Type Department Care Team Description 08/25/2014 Hospital Encounter HX [facility] Cintia Cobb M.D. [address] [place] [phone] (Wo rk) Social History Tobacco Use Types [...] 185 cm (6' 0.84) 08/25/2014 9:56 AM DISTRICT HOME ECONOMICS AGENT Body Mass Index - - documented in this encounter Miscellaneous Notes Miscellaneous - Cintia Cobb M.D. - 09/04/2014 1:17 PM DISTRICT HOME ECONOMICS AGENT Normal Results Letter 04 September 2014 LAZ LUNA [id number] [place] [address] [address] [facility] [id number] Dear LAZ LUNA, I am pleased to [...] Chol/HDL Ratio 4 08/25/2014 Sincerely, CINTIA KILGORE [address] [address] Electronic Signature Electronically Signed By: CINTIA KILGORE MD On: 04 September 2014 This document has images extracted. Source: [facility] POWERCHART Document Id: [id number] Electronically signed by Conversion, [facility] Natural Resource Specialist [id number] at 02/03/2017 4:34 PM CDT documented in this encounter Plan of Treatment Not on filedocumented as of this encounter Procedures Procedure Name Priority Date/Time Associated Diagnosis Comme nts LIPID PANEL, S Routine 08/25/2014 10:17 AM Result s for this DISTRICT HOME ECONOMICS AGENT procedure are i n the results section . documented in this encounter Results (ABNORMAL) Lipid Panel (08/25/2014 10:17 AM DISTRICT HOME ECONOMICS AGENT) P athologist Signature Cholesterol, 122 0 - [...] / Volume Laterality Blood 08/25/2014 10:17 AM DISTRICT HOME ECONOMICS AGENT Cintia Copeland M.D. LAB BLOOD ADD-ON Performing Organization Address City/State/ZIP Code Phon e Number POWERCHART documented in this encounter Visit Diagnoses Not on filedocumented in this encounter Additional Health Concerns Assessment Noted Time PHQ-9 Depression Total Score: 18 02/14/2013 9:53 AM CD T documented as of this encounter
--- OUTSIDE RECORDS SUMMARY | 2022-08-19 10:34 | XMS_ITS | Encounter Summary ---
:1960 Author Organization [facility] Address [address] [place] [address] Care Team Providers Name Role Phone Unavailable [...]
--- OUTSIDE RECORDS SUMMARY | 2022-08-19 10:34 | XMS_ITS | Encounter Summary ---
:1960 Author Organization [facility] Address [address] [place] [address] Care Team Providers Name Role Phone Unavailable Primary Care Provider Unavailable Encounter Details Date Type Department Care Team Description 12/08/2014 Hospital Encounter HX [facility] [place] Kevin Aguirre M.D. [address] [place] [phone] (Wo rk) Social History Tobacco Use [...] Ordered: OV Est Pt Level 4 - 39955 - 25 min 2. DM2 Patient off of a couple medications. Blood sugars are a little high, but with anticipated weight loss, I do not want to be too aggressive with increasing his insulin. Goal is ultimately to get off of insulin and perhaps all diabetic meds altogether. Ordered: OV Est Pt Level 4 - 36200 - 25 min 3. Insufficiency Renal NOS Creatinine up a little. Was 1.1 on discharge. Some concern for dehydration. Will decrease lisinopril to 20mg daily and recheck. Ordered: OV Est Pt Level 4 - 70343 - 25 min 4. Hypertension HTN NOS Blood pressure is very good today. We are going to cut back on the lisinopril. Lasix has already been stopped. Ordered: OV Est Pt Level 4 - 30697 - 25 min 5. Dysfunction Erectile (ED) NOS Patient would like to be referred to urology to further discuss. This will be placed. Electronically Signed By: KEVIN KILGORE MD On: 12/10/2014 07:57 PM Source: [facility] POWERCHART Document Id: [id number] documented in this encounter Miscellaneous Notes Miscellaneous - Shirlene Dominguez R.N. - 12/11/2014 2:31 PM CDT vit D From: SHIRLENE DOMINGUEZ RN Sent: 12/11/2014 14:31:34 CDT Subject: vit D Pharmacy called about pt wanting Vit D. Provider doesn't recall discussing this with pt but if he chooses, he could take OTC 1000IU Vit D daily. Pharmacy will let him know. Source: [facility] POWERCHART Document Id: [id number] Miscellaneous - Kevin Cobb M.D. - 12/10/2014 [...] [place] [facility] Type of Referral/Department: Urology- female Specific Clinical Question: Erectile dysfunction Pertinent History: _ Best Phone Number: _ Appointment Days to Avoid: Best Time of day: Date/Time of appointment made: Sign off: 3 Source: [facility] POWERCHART Document Id: [id number] Miscellaneous - Kevin Cobb M.D. - 12/10/2014 7:58 PM CDT Lab results Document Contains Addenda Addendum by JUDITH PATE LPN on 11 December 2014 13:24:58 CDT pt and his notified. Judith Addendum by JESSIKA TORRES on 11 December 2014 09:03:38 CDT no answer. From: KEVIN KILGORE MD To: [place] Family Medicine Nurse Bennett; Sent: 12/10/2014 19:58:24 [...] 1-2 weeks. Order will be placed. Source: [facility] [employer] Document Id: [id number] Electronically signed by Conversion, [facility] Table Cover Folder [id number] at 02/01/2017 3:36 PM CDT Miscellaneous - Shirlene Dominguez R.N. - 12/08/2014 3:32 PM CDT B12 Document Contains Addenda Addendum by SORIN VARGAS RN on 11 December 2014 09:04:15 CDT Submitted: Order:Rx Syringes Supply MISC Once 3 mg syringes with 5/8 25 gauge needle. Qty: 12 each Refills: 0 Substitutions Allowed Route To Pharmacy - [id number] Signed by SORIN VARGAS RN From: SHIRLENE DOMINGUEZ RN To: SHRILENE DOMINGUEZ RN; Sent: 12/08/2014 15:32:47 CDT Subject: B12 Tried to call pt, need to ask if he is going to do B12 shots himself, if so, needs syringes - per pharmacy 3ml syringe with 5/8 in needle 25 guage, needs 12. No answering machine, unable to leave message. Source: [facility] [employer] Document Id: [id number] Electronically signed by Conversion, [facility] Table Cover Folder [id number] at 02/01/2017 3:36 PM CDT Miscellaneous - Kevin Cobb M.D. - 12/08/2014 1:13 PM CDT Ambulatory Patient Summary [address] [place] [id number] Visit Information Name: NOEMÍ LUNA [facility] Number: [id number] Current Date: 12/08/2014 13:13:16 Physicians [...] a month vitamin B12 deficiency Routed to [address] [address] docusate-senna (Senna Plus) 1 Tablet(s), [...] Consult: _ Release of MR_ PHI_ Source: [facility] POWERCHART Document Id: [id number] Miscellaneous - Kevin Cobb M.D. - 12/08/2014 1:13 PM CDT Ambulatory Discharge Medication List [address] [id number] Visit Information Name: CARLYLE NOEMÍ Fernandez [facility] Number: [id number] Visit Date: 12/08/2014 13:13:15 Attending [...] a month vitamin B12 deficiency Routed to [address] [address] docusate-senna (Senna Plus) 1 Tablet(s), [...] MD Signed On:08-DEC-2014 13:12:26 Additional Information: Source: [facility] POWERCHART Document Id: [id number] Miscellaneous - Marco Dueñas LPiliPPiliN. - 12/08/2014 11:56 AM CDT Adult Rn Security Intake/History Adult Rn Security Intake/History Entered On: 12/08/2014 12:02 CDT Performed [...] Preferred Communication Mode : Verbal Languages : [place] Islander Is Patient Female and 13-50 no [...] CDT Alcohol Use : No [facility] - 12/08/2014 11:56 CDT Caffeine Use Grid Caffeine Use : Current Type : Coffee, Soft drinks Frequency : Weekly Amount : soda- weekly; coffee- 1x/week [facility] - 12/08/2014 11:56 CDT Recreational Drug Use Grid Drug Use : None [facility] - 12/08/2014 11:56 CDT ID Screen Drug Resistant Organism : No Travel Within Last 21 Days : No Contact with someone with Ebola : No [facility] - 12/08/2014 11:56 CDT Source: [facility] [employer] Document Id: [id number] CDT!51 documented in this encounter Plan of Treatment Not on filedocumented as of this encounter Procedures Procedure Name Priority Date/Time Associated Diagnosis Comme nts BASIC METABOLIC Routine 12/08/2014 1:10 PM Result s for this PANEL, S/P CDT procedure are i n the results section. documented in this encounter Results (ABNORMAL) BMP (Basic Metabolic Panel) (12/08/2014 1:10 PM CDT) [facility] gist Method Time Signature Anion Gap [...] MMOLL HXeGFR (MDRD) 43 (L) >=60 POWERCHART [id number] eGFR 52 (L) >=60 POWERCHART Black/ [id number] Nauruan Specimen (Source) Anatomical Collection Method Collection Time [...]
--- OUTSIDE RECORDS SUMMARY | 2022-08-19 10:34 | XMS_ITS | Encounter Summary ---
:1960 Author Organization [facility] Address [address] [place] [address] Care Team Providers Name Role Phone Unavailable Primary Care Provider Unavailable Encounter Details Date Type Department Care Team Description 08/24/2014 Hospital Encounter HX [facility] Cintia Aguirre M.D. [address] [place] [phone] (Wo rk) Social History Tobacco Use Types Packs/Day Years Used Date Smoking Tobacco: Never Assessed Sex Assigned at Date Recorded Not on file documented as of this encounter Last Filed Vital Signs Vital Sign Reading Time Taken Comments Blood Pressure 131/72 08/24/2014 6:30 PM TYPE COPYIST Pulse 49 08/24/2014 6:22 PM TYPE COPYIST Temperature - - Respiratory Rate - - Oxygen Saturation - - Inhaled Oxygen Concentration - - Weight 156 kg (343 lb 14.7 oz) 08/24/2014 6:22 PM TYPE COPYIST Height 185 cm (6' 0.84) 08/24/2014 6:30 PM TYPE COPYIST Body Mass Index 45.58 08/24/2014 6:22 PM TYPE COPYIST documented in this encounter Progress Notes Cintia Cobb M.D. - 08/24/2014 5:44 PM CST [id number] CHIEF COMPLAINT/REASON FOR VISIT Follow up diabetes. [...] him to a program perhaps at the [facility]. He is uncertain if insurance would approve [...] up at the [facility], but I think he would likely have to start all the way at the beginning again and he has already completed all of that work with [facility]. I cer tainly respect his decision if that is where he prefers to go, but I strongly encouraged him to reconsider going to [place] because I do feel that his problems are coming under control and his surgery was not necessarily canceled so much as postponed until we could get things to be a little more stable. The patient reports that he does not want to see the same surgeon but he would be willing to seeanother surgeon at [facility]. At this point, I will e-mail Dr. [...] have some questions about perhaps go to [facility] and cutting back on his insulin. I [...] content. Cintia Song M.D./caron Electronically Signed By: CITNIA KILGORE MD On: 09/04/2014 08:55 AM Source: [facility] MHSDOLBEYNONRADSYS Document Id: [id number] COPYIST documented in this encounter Miscellaneous Notes Miscellaneous - Cintia Cobb M.D. - 08/24/2014 6:59 PM TYPE COPYIST Ambulatory Patient Summary [address] [place] [id number] Visit Information Name: LAZ LUNA [facility] Number: [id number] Current Date: 08/24/2014 18:59:47 Physicians [...] appointment detail needed. Your Goals/Additional instructions: Source: [facility] POWERCHART Document Id: [id number] COPYIST Miscellaneous - Cintia Cobb M.D. - 08/24/2014 6:59 PM TYPE COPYIST Ambulatory Discharge Medication List [address] [place] [id number] Visit Information Name: LAZ LUNA [facility] Number: [id number] Visit Date: 08/24/2014 18:59:45 Attending [...] MD Signed On:24-AUG-2014 18:59:28 Additional Information: Source: [facility] [employer]CHART Document Id: [id number] COPYIST Miscellaneous - Anne Marie Tuttle L.P.N. - 08/24/2014 6:30 PM CST Ambulatory Vitals Height Weight Ambulatory Vitals Height Weight Entered On: 08/24/2014 18:31 TYPE COPYIST Performed On: 08/24/2014 18:30 TYPE COPYIST by ANNE MARIE TUTTLE LPN, RT Vitals/Ht/Wt Systolic Blood Pressure : 131 mmHg Diastolic Blood Pressure : 72 mmHg NIBP Mean : 92 mmHg BP Location : Left upper extremity Blood Pressure Cuff Size : Large Height : 185 cm(Converted to: 6 ft 1 inch(es), 73 inch(es)) ANNE MARIE TUTTLE LPN, RT - 08/24/2014 18:30 TYPE COPYIST Source: [facility] POWERCHART Document Id: [id number] TYPE COPYIST!8 COPYIST Miscellaneous - Anne Marie Tuttle L.P.NPili - 08/24/2014 6:22 PM CST Adult Alterations Supervisor Intake/History Adult Alterations Supervisor Intake/History Entered On: 08/24/2014 18:27 TYPE COPYIST Performed On: 08/24/2014 18:22 TYPE COPYIST by ANNE MARIE TUTTLE LPN, RT Intake [...] MARIE TUTTLE LPN, RT - 08/24/2014 18:22 TYPE COPYIST General Info Information Given By : Patient Preferred Communication Mode : Verbal Languages : French Is Patient Female and 13-50 no hysterectomy : No ANNE MARIE TUTTLE LPN, RT - 08/24/2014 18:22 TYPE COPYIST Subjective Pain Symptoms : No ANNE MARIE TUTTLE LPN, RT - 08/24/2014 18:22 TYPE COPYIST Dependent Habits Tobacco Use/Currently Using : No Smoking Status : Never smoker ANNE MARIE TUTTLE LPN, RT - 08/24/2014 18:22 TYPE COPYIST Tobacco Use Grid Last Use : never ANNE MARIE TUTTLE LPN, RT - 08/24/2014 18:22 TYPE COPYIST Caffeine Use Grid Caffeine Use : Current Type : Coffee, Soft drinks Frequency : Weekly Amount : soda- weekly; coffee- 1x/week ANNE MARIE TUTTLE LPN, RT - 08/24/2014 18:22 TYPE COPYIST Recreational Drug Use Grid Drug Use : None ANNE MARIE TUTTLE LPN, RT - 08/24/2014 18:22 TYPE COPYIST ID Screen Drug Resistant Organism : No Travel Within Last 21 Days : No ANNE MARIE TUTTLE LPN, RT - 08/24/2014 18:22 TYPE COPYIST Source: [employer] Document Id: [id number] TYPE COPYIST!41 COPYIST documented in this encounter Plan of Treatment Not on filedocumented as of this encounter Visit Diagnoses Not on filedocumented in this encounter Additional Health Concerns Assessment Noted Time PHQ-9 Depression Total Score: 18 02/14/2013 9:53 AM CD T documented as of this encounter
--- OUTSIDE RECORDS SUMMARY | 2022-08-19 10:34 | XMS_ITS | Encounter Summary ---
:1960 Author Organization [facility] Address [address] [place] [address] Care Team Providers Name Role Phone Unavailable Primary Care Provider Unavailable Encounter Details Date Type Department Care Team Description 09/21/2014 Hospital Encounter HX [facility] Cintia Aguirre M.D. [address] [place] [phone] (Wo rk) Social History Tobacco Use Types Packs/Day Years Used Date Smoking Tobacco: Never Assessed Sex Assigned at Date Recorded Not on file documented as of this encounter Last Filed Vital Signs Vital Sign Reading Time Taken Comments Blood Pressure 149/70 09/21/2014 7:07 PM [employer]PER[employer] SPACELIFT Pulse 64 09/21/2014 6:09 PM [employer] SPACELIFT Temperature - - Respiratory Rate - - Oxygen Saturation - - Inhaled Oxygen Concentration - - Weight 157 kg (345 lb 0.3 oz) 09/21/2014 6:09 PM [employer]PER[employer] SPACELIFT Height 185 cm (6' 0.84) 09/21/2014 7:07 PM [employer]PER[employer] SPACELIFT Body Mass Index 45.73 09/21/2014 6:09 PM [employer]PER[employer] SPACELIFT documented in this encounter Progress Notes Cintia Cobb M.D. - 09/21/2014 6:03 PM CST [id number] CHIEF COMPLAINT/REASON FOR VISIT Follow up chronic problems. HISTORY OF PRESENT ILLNESS Ed is a 54-year-old male who presents today to follow up on chronic problems. He also has questions about the Lap-Band. He is set up for appointments with Bariatric Surgery in [place] againthe beginning of October but he reports [...] about 1 week. We will also get atpjvgcpya-wd-lzxeptqmes ratio. The blood sugars he gives are [...] have an open MRI up in the [facility]. He will thinkabout what he would [...] bariatric surgery which was previously planned in [place]. He is going to keep his appointment in [place] at this time. 6. Hypertension. Patient's blood [...] KILGORE MD On: 10/02/2014 02:41 PM Source: [facility] MHSDOLBEYNONRADSYS Document Id: [id number] E AND MISSILE OPERATIONS SPACELIFT documented in this encounter Miscellaneous Notes Miscellaneous - Anne Marie Tuttle L.P.N. - 09/21/2014 7:07 PM CST Ambulatory Vitals Height Weight Ambulatory Vitals Height Weight Entered On: 09/21/2014 19:08 [employer] SPACELIFT Performed On: 09/21/2014 19:07 [employer]IS[employer]PER[employer] SPACELIFT by ANNE MARIE TUTTLE LPN, RT Vitals/Ht/Wt Systolic Blood Pressure : 149 mmHg (HI) Diastolic Blood Pressure : 70 mmHg NIBP Mean : 96 mmHg BP Location : Left upper extremity Blood Pressure Cuff Size : Large Height : 185 cm(Converted to: 6 ft 1 inch(es), 73 inch(es)) ANNE MARIE TUTTLE LPN, RT - 09/21/2014 19:07 [employer]PER[employer] SPACELIFT Source: [facility] POWERCHART Document Id: [id number] SPACE AND MISSILE OPERATIONS SPACELIFT!8 E AND MISSILE OPERATIONS SPACELIFT Miscellaneous - Cintia Cobb M.D. - 09/21/2014 6:52 PM [employer] SPACELIFT Ambulatory Patient Summary [address] [id number] Visit Information Name: LAZ LUNA [facility] Number: [id number] Current Date: 09/21/2014 [...] Consult: _ Release of MR_ PHI_ Source: [facility] POWERCHART Document Id: [id number] E AND MISSILE [employer]PERATIONS SPACELIFT Miscellaneous - Cintia Cobb M.D. - 09/21/2014 6:52 PM [employer] SPACELIFT Ambulatory Discharge Medication List [address] [id number] Visit Information Name: LAZ LUNA [facility] Number: [id number] Visit Date: 09/21/2014 [...] MD Signed On:21-SEP-2014 18:51:42 Additional Information: Source: [facility] POWERCHART Document Id: [id number] E [employer] MISSILE [employer]PERATIONS SPACELIFT Miscellaneous - Anne Marie Tuttle L.PPiliN. - 09/21/2014 6:21 PM CST Quality Measures Quality Measures Entered On: 09/21/2014 18:23 [employer]PER[employer] SPACELIFT Performed On: 09/21/2014 18:21 [employer]IS[employer]PER[employer] SPACELIFT by ANNE MARIE TUTTLE LPN, Diabetes Date of Last Eye Exam : 09/12/2014 [employer] SPACELIFT ANNE MARIE TUTTLE LPN, RT - 09/21/2014 18:21 [employer]PER[employer] SPACELIFT Source: [facility] POWERCHART Document Id: [id number] SPACE AND MISSILE OPERATIONS SPACELIFT!3 E AND MISSILE OPERATIONS SPACELIFT Miscellaneous - Anne Marie Tuttle L.PPiliN. - 09/21/2014 6:09 PM CST Adult Change Agent Intake/History Adult Change Agent Intake/History Entered On: 09/21/2014 18:16 [employer] SPACELIFT Performed On: 09/21/2014 18:09 [employer]PER[employer] SPACELIFT by ANNE MARIE TUTTLE LPN, RT Intake [...] MARIE TUTTLE LPN, RT - 09/21/2014 18:09 [employer] SPACELIFT General Info Information Given By : Patient Preferred Communication Mode : Verbal Languages : Portuguese Is Patient Female and 13-50 no hysterectomy : No ANNE MARIE TUTTLE LPN, RT - 09/21/2014 18:09 [employer] SPACELIFT Subjective Pain Symptoms : No ANNE MARIE TUTTLE LPN, RT - 09/21/2014 18:09 [employer] SPACELIFT Dependent Habits Tobacco Use/Currently Using : No Smoking Status : Never smoker ANNE MARIE TUTTLE LPN, RT - 09/21/2014 18:09 [employer] SPACELIFT Tobacco Use Grid Last Use : never ANNE MARIE TUTTLE LPN, RT - 09/21/2014 18:09 [employer] SPAC[employer] Caffeine Use Grid Caffeine Use : Current Type : Coffee, Soft drinks Frequency : Weekly Amount : soda- weekly; coffee- 1x/week ANNE MARIE TUTTLE LPN, RT - 09/21/2014 18:09 [employer] SPAC[employer]IFT Recreational Drug Use Grid Drug Use : None ANNE MARIE TUTTLE LPN, RT - 09/21/2014 18:09 [employer] SPACELIFT ID Screen Drug Resistant Organism : No Travel Within Last 21 Days : No ANNE MARIE TUTTLE LPN, RT - 09/21/2014 18:09 [employer] SPACELIFT Source: [employer] Document Id: [id number] SP[employer]IS[employer]PERATIONS SPACELIFT!41 E AND MISSILE [employer]PERATIONS SPACELIFT documented in this encounter Plan of Treatment Not on filedocumented as of this encounter Visit Diagnoses Not on filedocumented in this encounter Additional Health Concerns Assessment Noted Time PHQ-9 Depression Total Score: 18 02/14/2013 9:53 AM CD T documented as of this encounter
--- OUTSIDE RECORDS SUMMARY | 2022-08-19 10:34 | XMS_ITS | Encounter Summary ---
:1960 Author Organization [facility] Address [address] [place] [address] Care Team Providers Name Role Phone Unavailable Primary Care Provider Unavailable Encounter Details Date Type Department Care Team Description 08/17/2014 Hospital Encounter HX [facility] [place] Cintia Aguirre M.D. [address] [place] [phone] (Wo rk) Social History Tobacco Use Types Packs/Day Years Used Date Smoking Tobacco: Never Assessed Sex Assigned at Date Recorded Not on file documented as of this encounter Last Filed Vital Signs Vital Sign Reading Time Taken Comments Blood Pressure 148/81 08/17/2014 2:06 PM RACKER OCTAVE BOARD Pulse 53 08/17/2014 2:06 PM [employer] Temperature - - Respiratory Rate - - Oxygen Saturation - - Inhaled Oxygen Concentration - - Weight 160 kg (352 lb 8.3 oz) 08/17/2014 2:06 PM [employer] Height 185 cm (6' 0.84) 08/17/2014 2:06 PM [employer] Body Mass Index 46.72 08/17/2014 2:06 PM [employer] OCTAVE [employer]ARD documented in this encounter Progress Notes Cintia Cobb M.D. - 08/17/2014 2:02 PM CST [id number] CHIEF COMPLAINT/REASON FOR VISIT Follow up pneumonia [...] point, and he is waiting for the concrete paving supervisor to give him a call back. 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 - 08/17/2014 2:36 PM [employer] Ambulatory Patient Summary [address] [id number] Visit Information Name: LAZ LUNA [facility] Number: [id number] Current Date: 08/17/2014 14:36:05 Physicians [...] detail needed. Your Goals/Additional instructions: Source: [facility] POWERCHART Document Id: [id number] ER OCTAVE BOARD Miscellaneous - Cintia Cobb M.D. - 08/17/2014 2:36 PM RACKER OCTAVE BOARD Ambulatory Discharge Medication List [address] [id number] Visit Information Name: LAZ LUNA [facility] Number: [id number] Visit Date: 08/17/2014 14:36:03 Attending [...] MD Signed On:17-AUG-2014 14:35:44 Additional Information: Source: [facility] POWERCHART Document Id: [id number] ER OCTAVE BOARD Miscellaneous - Anne Marie Tuttle L.P.N. - 08/17/2014 2:06 PM CST Adult Photograph Enlarger Intake/History Adult Photograph Enlarger Intake/History Entered On: 08/17/2014 14:08 RACKER [employer]AVE BOARD Performed On: 08/17/2014 14:06 RACKER OCTAVE BOARD by ANNE MARIE TUTTLE LPN, RT Intake [...] MARIE TUTTLE LPN, RT - 08/17/2014 14:06 RACKER OCTAVE BOARD General Info Information Given By : Patient Preferred Communication Mode : Verbal Languages : Vincentian Is Patient Female and 13-50 no hysterectomy : No ANNE MARIE TUTTLE LPN, RT - 08/17/2014 14:06 RACKER [employer]AVE BOARD Subjective Pain Symptoms : No ANNE MARIE TUTTLE LPN, RT - 08/17/2014 14:06 RACKER OCTAVE BOARD Dependent Habits Tobacco Use/Currently Using : No Smoking Status : Never smoker ANNE MARIE TUTTLE LPN, RT - 08/17/2014 14:06 RACKER [employer]AVE [employer] Tobacco Use Grid Last Use : never ANNE MARIE TUTTLE LPN, RT - 08/17/2014 14:06 RACK[employer] Caffeine Use Grid Caffeine Use : Current Type : Coffee, Soft drinks Frequency : Weekly Amount : soda- weekly; coffee- 1x/week ANNE MARIE TUTTLE LPN, RT - 08/17/2014 14:06 RACKER OCTAVE BOARD Recreational Drug Use Grid Drug Use : None ANNE MARIE TUTTLE LPN, RT - 08/17/2014 14:06 RACKER OCTAVE BOARD ID Screen Drug Resistant Organism : No Travel Within Last 21 Days : No ANNE MARIE TUTTLE LPN, RT - 08/17/2014 14:06 RACKER OCTAVE BOARD Source: [facility] Pure life renal Document Id: [id number] RACKER OCTAVE BOARD!41 ER OCTAVE BOARD documented in this encounter Plan of Treatment Not on filedocumented as of this encounter Visit Diagnoses Not on filedocumented in this encounter Additional Health Concerns Assessment Noted Time PHQ-9 Depression Total Score: 18 02/14/2013 9:53 AM CD T documented as of this encounter
--- OUTSIDE RECORDS SUMMARY | 2022-08-19 10:35 | XMS_ITS | Encounter Summary ---
:1960 Author Organization [facility] Address [address] [place] [address] Care Team Providers Name Role Phone Unavailable Primary Care Provider Unavailable Encounter Details Date Type Department Care Team Description 04/10/[address] [facility] Cintia lindquist M.D. [address] [place] [phone] (Wo rk) Social History Tobacco Use [...] On: 04/10/2014 10:44 CDT by ALVINA ROBERTS TENSILE TESTER Vitals/Ht/Wt Peripheral Pulse Rate : 52 /min (LOW) Systolic Blood Pressure : 156 mmHg (HI) Diastolic Blood Pressure : 74 mmHg NIBP Mean : 101 mmHg BP Location : Left upper extremity Blood Pressure Cuff Size : Large Height : 185 cm(Converted to: 6 ft 1 inch(es), 73 inch(es)) ALVINA ROBERTS LPN - 04/10/2014 10:44 CDT Source: [employer] Document Id: [id number] CDT!9 documented in this encounter Plan of Treatment Not on filedocumented as of this encounter Visit Diagnoses Not on filedocumented in this encounter Additional Health Concerns Assessment Noted Time PHQ-9 Depression Total Score: 18 02/14/2013 9:53 AM CD T documented as of this encounter
--- OUTSIDE RECORDS SUMMARY | 2022-08-19 10:35 | XMS_ITS | Encounter Summary ---
:1960 Author Organization [facility] Address [address] [place] [address] Care Team Providers Name Role Phone Unavailable Primary Care Provider Unavailable Encounter Details Date Type Department Care Team Description 10/18/2013 Hospital Encounter [facility]X [facility] Cintia Cobb M.D. [address] [place] [phone] (Wo rk) Social History Tobacco Use Types Packs/Day Years Used Date Smoking Tobacco: Never Assessed Sex Assigned at Date Recorded Not on file documented as of this encounter Plan of Treatment Not on filedocumented as of this encounter Procedures Procedure Name Priority Date/Time Associated Diagnosis Comme nts POTASSIUM, S/P Routine 10/18/2013 10:37 AM Result s for this SHELLFISH CHECKER procedure are i n the results section. HEMOGLOBIN A1C, B Routine 10/18/2013 10:37 AM Res ults for this SHELLFISH CHECKER procedure are i n the results section. documented in this encounter Results Potassium (10/18/2013 10:37 AM SHELLFISH CHECKER) P athologist Signature Potassium, S 4.0 3.6 - 4.8 POWERCHART MMOLL Specimen (Source) Anatomical Collection Method Collection Time Re ceived Time Location / / Volume Laterality Blood 10/18/2013 10:37 AM SHELLFISH CHECKER Cintia Copeland M.D. LAB BLOOD ADD-ON Performing Organization Address City/State/ZIP Code Phon e Number POWERCHART (ABNORMAL) Hemoglobin A1c (10/18/2013 10:37 AM SHELLFISH CHECKER) Analysis Performed At Patho logist Time Signature Hemoglobin A1c, 7.65 (H) 4.00 - POWERCHART B 6.00 Specimen (Source) Anatomical Collection Method Collection Time Re ceived Time Location / / Volume Laterality Blood 10/18/2013 10:37 AM SHELLFISH CHECKER Cintia Copeland M.D. LAB BLOOD ADD-ON Performing Organization Address City/State/ZIP Code Phon e Number POWERCHART documented in this encounter Visit Diagnoses Not on filedocumented in this encounter Additional Health Concerns Assessment Noted Time PHQ-9 Depression Total Score: 18 02/14/2013 9:53 AM CD T documented as of this encounter
--- OUTSIDE RECORDS SUMMARY | 2022-08-19 10:35 | XMS_ITS | Encounter Summary ---
:1960 Author Organization [facility] Address [address] [place] [address] Care Team Providers Name Role Phone Unavailable Primary Care Provider Unavailable Encounter Details Date Type Department Care Team Description 12/14/2013 - Hospital Encounter [facility]X [facility] John Norman, 06/30/2014 PARKER Riggs [address] [place] [phone] Social History Tobacco Use Types Packs/Day Years Used Date Smoking Tobacco: Never Assessed Sex Assigned at Date Recorded Not on file documented as of this encounter Discharge Summaries Rigoberto Bello, P.T. - 04/24/2014 12:00 AM CDT [id number] PHYSICAL THERAPY DISCHARGE NOTE The patient was [...] BELLO DPT On: 04/26/2014 01:16 PM Source: [facility] MHSDOLBEYNONRADSYS Document Id: [id number] documented in this encounter Progress Notes Micah Donaldson P.T. - 01/11/2014 12:00 AM CDT [id number] PHYSICAL THERAPY PROGRESS NOTE CHIEF COMPLAINT/REASON FOR [...] DONALDSON DPT On: 01/19/2014 08:36 AM Source: [facility] MHSDOLBEYNONRADSYS Document Id: [id number] Rigoberto Bello P.T. - 01/04/2014 12:00 AM CDT [id number] PHYSICAL THERAPY PROGRESS NOTE CHIEF COMPLAINT Patient [...] BELLO DPT On: 01/06/2014 08:42 AM Source: [facility] MHSDOLBEYNONRADSYS Document Id: [id number] Rigoberto Bello P.T. - 12/28/2013 12:00 AM CDT [id number] PHYSICAL THERAPY PROGRESS NOTE CHIEF COMPLAINT Patient [...] BELLO DPT On: 12/30/2013 07:41 AM Source: [facility] MHSDOLBEYNONRADSYS Document Id: [id number] Micah Donaldson PSilvano. - 12/26/2013 12:00 AM CDT [id number] REVISION HISTORY January 12, 2014, at 2:01 [...] DONALDSON DPT On: 01/13/2014 01:39 PM Source: [facility] MHSDOLBEYNONRADSYS Document Id: [id number] Rigoberto Bello P.T. - 12/21/2013 12:00 AM CDT [id number] PHYSICAL THERAPY DAILY PROGRESS NOTE CHIEF COMPLAINT [...] BELLO DPRandy On: 12/23/2013 09:24 AM Source: [facility] MHSDOLBEYNONRADSYS Document Id: [id number] Micah Donaldson P.T. - 12/19/2013 12:00 AM CDT [id number] PHYSICAL THERAPY PROGRESS NOTE CHIEF COMPLAINT/REASON FOR [...] DONALDSON DPT On: 12/26/2013 04:11 PM Source: [facility] MHSDOLBEYNONRADSYS Document Id: [id number] documented in this encounter Consult Notes Rigoberto Bello P.T. - 12/14/2013 12:00 AM CDT [id number] PHYSICAL THERAPY INITIAL EVALUATION REFERRAL SOURCE/REFERRING DIAGNOSIS [...] tight, with fingers especially. 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 Negative [place] Tony and negative [...] active range of motion, within 2 weeks. TRACTOR OPERATOR GOAL: 1. Patient will report no pain [...] Rigoberto Bello D.P.T./caron cc: John Norman M.D. [address] [place] [address] Electronically Signed By: RIGOBERTO BELLO DPRandy On: 12/19/2013 01:26 PM Modified by and Electronically Signed by: RIGOBERTO BELLO DPT On: 12/19/2013 01:26 PM Co-Signed By: JOHN NORMAN MD On: 12/19/2013 02:31 PM Source: [facility] WINSOMESDDEMOND Document Id: [id number] documented in this encounter Plan of Treatment Not on filedocumented as of this encounter Visit Diagnoses Not on filedocumented in this encounter Additional Health Concerns Assessment Noted Time PHQ-9 Depression Total Score: 18 02/14/2013 9:53 AM CD T documented as of this encounter
--- OUTSIDE RECORDS SUMMARY | 2022-08-19 10:35 | XMS_ITS | Encounter Summary ---
:1960 Author Organization [facility] Address [address] [place] [address] Care Team Providers Name Role Phone Unavailable Primary Care Provider Unavailable Encounter Details Date Type Department Care Team Description 12/15/2013 Hospital Encounter [facility] Cintia Jorgensen M.D. [address] [place] [phone] (wo rk) Social History Tobacco Use Types [...] 12/15/2013 7:18 PM CDT Ambulatory Patient Summary [id number] [place], [place] [id number] Visit Information Name: LAZ LUNA [facility] Number: [id number] Current Date: 12/15/2013 19:18:44 [...] Date Time Location Reason Provider 12/19/2013 17:00 [facility] PT/OT rt shoulder impingment Rahel Donaldson 12/21/2013 18:00 [facility] PT/OT rt shoulder impingment Ade Gandhi 01/17/2014 15:30 [facility] Follow up Shoulder Ester MENDEZ, John Lindsay Attention: Contact your local Clinic if further appointment detail needed. Your Goals/Additional instructions: Source: [facility] POWERCHART Document Id: [id number] Miscellaneous - Cintia Cobb M.D. - 12/15/2013 7:18 PM CDT Ambulatory Discharge Medication List [address] [place], [place] [phone] Visit Information Name: LAZ LUNA [facility] Number: [id number] Visit Date: 12/15/2013 19:18:42 Attending Provider: CINTIA KILGORE MD Primary Care Provider: CINTIA KILGORE MD ACRLYLELAZ has been given the following list of [...] MD Signed On:15-DEC-2013 19:18:26 Additional Information: Source: [facility] Face-Me Document Id: [id number] Osbaldo - Anne Marie Tuttle L.P.N. - [...] LPN, RT - 12/15/2013 17:38 CDT Source: [facility] [employer]Me Document Id: [id number] CDT!7 Anne Marie Dasilva L.P.N. - 12/15/2013 5:28 PM CDT Adult Coffee Roaster Intake/History Adult Coffee Roaster Intake/History Entered On: 12/15/2013 17:34 CDT Performed [...] Information Given By : Patient Languages : Burmese ANNE MARIE TUTTLE LPN, RT - 12/15/2013 [...] LPN, RT - 12/15/2013 17:28 CDT Source: [employer] Document Id: [id number] CDT!41 documented in this encounter Plan of [...] X109L Erythrocytes 4.93 4.32 - 5.72 POWERCHART C3099I Hemoglobin 15.0 13.5 - 17.5 POWERCHART GDL [...] POWERCHART MMOLL HXeGFR (MDRD) >60 >=60 POWERCHART [id number] eGFR >60 >=60 POWERCHART Black/ [id number] [place] Specimen (Source) Anatomical Collection Method Collection Time [...]
--- OUTSIDE RECORDS SUMMARY | 2022-08-19 10:35 | XMS_ITS | Encounter Summary ---
:1960 Author Organization [facility] Address [address] [place] [address] Care Team Providers Name Role Phone Unavailable Primary Care Provider Unavailable Encounter Details Date Type Department Care Team Description 07/26/2013 Hospital Encounter HX [facility] HLT Provider, Elder robledo Social History Tobacco Use Types Packs/Day Years Used Date Smoking Tobacco: Never Assessed Sex Assigned at Date Recorded Not on file documented as of this encounter Miscellaneous Notes Miscellaneous - Conversion, Historical Provider Ser - 07/26/2013 12:00 AM PRACTICE COORDINATOR [id number] LETTER July 26, 2013 RE: Laz Luna 1960 EMR: [id number] TO WHOM IT MAY CONCERN: This letter is to inform you that the above named individual has completed the eight session [facility] Program for weight management and to fulfill the requirements of [facility] gastric bypass surgery process. This individual was in attendance at all eight sessions and participated in the group discussions. Sincerely, Sebas Soares Asp, Ed.D., L.P. Amy Monsour, [facility] Source: [facility] RWHXTRANSXRTFSYS Document Id: [id number] documented in this encounter Plan of Treatment Not on filedocumented as of this encounter Visit Diagnoses Not on filedocumented in this encounter Additional Health Concerns Assessment Noted Time PHQ-9 Depression Total Score: 18 02/14/2013 9:53 AM CD T documented as of this encounter
--- OUTSIDE RECORDS SUMMARY | 2022-08-19 10:35 | XMS_ITS | Encounter Summary ---
:1960 Author Organization [facility] Address [address] [place] [address] Care Team Providers Name Role Phone Unavailable Primary Care Provider Unavailable Encounter Details Date Type Department Care Team Description 05/03/2014 Hospital Encounter HX [facility] [place] Cintia Aguirre M.D. [address] [place] [phone] (Wo rk) Social History Tobacco Use [...] Cobb M.D. - 05/03/2014 6:06 PM CDT [id number] CHIEF COMPLAINT/REASON FOR VISIT Follow up blood [...] to auscultation bilaterally. EXTREMITIES: He has 3+ Bowdle edema past his knees right greater than [...] KILGORE MD On: 05/12/2014 10:19 AM Source: [facility] MHSDOLBEYNONRADSYS Document Id: [id number] documented in this encounter Miscellaneous Notes Miscellaneous - Cintia Cobb M.D. - 05/11/2014 2:16 PM CDT Normal Results Letter 11 May 2014 LAZ LUNA [address] [place] [id number] Dear ED CARLYLE, Your A1c has gone [...] 7.65 10/18/2013 - <=5.6 Sincerely, CINTIA KILGORE [address] [address] Electronic Signature Electronically Signed By: CINTIA KILGORE MD On: 11 May 2014 This document has images extracted. Source: [facility] Bibulu Document Id: [id number] Electronically signed by Dayami [facility] Continuous Improvement Director [id number] at 02/03/2017 6:55 PM CDT Lulycellaneous - [...] rechecked in 3 months. Cintia Segura Source: [facility] LightArrowCHART Document Id: [id number] Electronically signed by Dayami, [facility] Continuous Improvement Director [id number] at 02/03/2017 6:55 PM CDT Miscellaneous - Cintia Cobb M.D. - 05/03/2014 6:49 PM CDT Ambulatory Patient Summary [address] [id number] Visit Information Name: CARLYLE LAZ [facility] Number: [id number] Current Date: 05/03/2014 18:49:04 Physicians [...] hypertension This is a CHANGE Routed to [address] [address] docusate-senna (Dok Plus) 2 Tablet(s), Oral, once a day furosemide (Lasix 20 mg oral tablet) See Instructions 1 tab(s) PO in morning and 2 tab in evening Routed to [address] [address] hydrochlorothiazide (hydrochlorothiazide 25 mg oral [...] appointment detail needed. Your Goals/Additional instructions: Source: [facility] POWERCHART Document Id: [id number] Miscellaneous - Cintia Cobb M.D. - 05/03/2014 6:49 PM CDT Ambulatory Discharge Medication List [address] [place] [id number] Visit Information Name: LAZ LUNA [facility] Number: [id number] Visit Date: 05/03/2014 18:49:02 Attending [...] hypertension This is a CHANGE Routed to [address] [address] docusate-senna (Dok Plus) 2 Tablet(s), Oral, once a day furosemide (Lasix 20 mg oral tablet) See Instructions 1 tab(s) PO in morning and 2 tab in evening Routed to [address] [address] hydrochlorothiazide (hydrochlorothiazide 25 mg oral [...] MD Signed On:03-MAY-2014 18:48:42 Additional Information: Source: [facility] Bibulu Document Id: [id number] Miscellwalter - Anne Marie Tuttle L.P.N. - [...] LPN, RT - 05/03/2014 18:24 CDT [email or web address] Document Id: [id number] CDT!8 Lulycellaneous - Anne Marie Tuttle LPiliP.N. - 05/03/2014 6:08 PM CDT Adult Plant Machinist Intake/History Adult Plant Machinist Intake/History Entered On: 05/03/2014 18:12 CDT Performed [...] Preferred Communication Mode : Verbal Languages : Slovak Is Patient Female and [...] LPN, RT - 05/03/2014 18:08 CDT Source: [facility] POWERCHART Document Id: [id number] CDT!38 documented in this encounter Plan of [...]
--- OUTSIDE RECORDS SUMMARY | 2022-08-19 10:35 | XMS_ITS | Encounter Summary ---
:1960 Author Organization [facility] Address [address] [place] [address] Care Team Providers Name Role Phone Unavailable Primary Care Provider Unavailable Encounter Details Date Type Department Care Team Description 07/27/2014 Hospital Encounter HX [facility] Cintia Aguirre M.D. [address] [place] [phone] (Wo rk) Social History Tobacco Use Types Packs/Day Years Used Date Smoking Tobacco: Never Assessed Sex Assigned at Date Recorded Not on file documented as of this encounter Last Filed Vital Signs Vital Sign Reading Time Taken Comments Blood Pressure 154/78 07/27/2014 12:04 PM SHIPPING PROCESSOR Pulse 49 07/27/2014 12:04 PM SHIPPING PROCESSOR Temperature - - Respiratory Rate - - Oxygen Saturation - - Inhaled Oxygen Concentration - - Weight 164 kg (362 lb 7 oz) 07/27/2014 12:04 PM SHIPPING PROCESSOR Height 185 cm (6' 0.84) 07/27/2014 12:04 PM SHIPPING PROCESSOR Body Mass Index 48.03 07/27/2014 12:04 PM SHIPPING PROCESSOR documented in this encounter Progress Notes Cintia Cobb M.D. - 07/27/2014 11:56 AM CST [id number] CHIEF COMPLAINT/REASON FOR VISIT Leg swelling. HISTORY [...] potentially ordering an open MRI in the [facility] and then having him follow through [...] KILGORE MD On: 08/12/2014 08:50 AM Source: [facility] MHSDOLBEYNONRADSYS Document Id: [id number] PING PROCESSOR documented in this encounter Miscellaneous Notes Miscellaneous - Cintia Cobb M.D. - 07/28/2014 11:50 AM SHIPPING PROCESSOR blood thinner Document Contains Addenda Addendum by ANNE MARIE TUTTLE LPN, RT on 28 July 2014 12:40:42 SHIPPING PROCESSOR notified. DL From: CINTIA KILGORE MD To: ANNE MARIE TUTTLE LPN, RT; Sent: 07/28/2014 11:50:00 SHIPPING PROCESSOR Subject: blood thinner Please let patient know that I have heard from Dr. Reyes re: anticoagulation/blood thinner medicine and he would wait to address that until after surgery. We will have him see Dr. Gaitan as scheduled on 08/14 and myself on 08/10. Cintia Segura Source: [facility] POWERCHART Document Id: [id number] Miscellaneous - Cintia Cobb M.D. - 07/27/2014 2:12 PM SHIPPING PROCESSOR Ambulatory Patient Summary [facility] [place] [id number] Visit Information Name: LUNALAZ Padilla [facility] Number: [id number] Current Date: 07/27/2014 14:12:29 Physicians [...] swelling This is a CHANGE Routed to [facility] [address] hydrochlorothiazide (hydrochlorothiazide 25 mg oral tablet) 1 Tablet(s), Oral, once a day high bloodpressure This is a CH[facility] [address] hydrocortisone topical (hydrocortisone 2.5% topical lotion) 1 jannie, Topical, three times a day ibuprofen (Advil) 200 mg, Oral, 2 tabs daily insulin glargine (Lantus Solostar Pen 100 units/mL subcutaneous solution) 75 units, Subcutaneous, once a day diabetes This is a CHANGE [facility] [address] liraglutide (Victoza) 1.8 mg, Subcutaneous, once a day lisinopril (lisinopril 40 mg oral tablet) 1 Tablet(s), Oral, two times a day high blood pressure This is a CHANGE Routed to [address] [address] metFORMIN (metformin 1000 mg oral tablet) 1 Tablet(s), Oral, two times a day with meals diabetes This is a CHANGE Routed to [address] [address] metoprolol (metoprolol tartrate 25 mg oral tablet) 1 Tablet(s), Oral, two times a day omeprazole (omeprazole 20 mg oral delayed release capsule) 1 cap, Oral, once a day simvastatin (simvastatin 40 mg oral tablet) 1 Tablet(s), Oral, once a day (at bedtime) high cholesterol This is a CHANGE Routed to [address] [address] tadalafil (Cialis 20 mg oral [...] Appointments Date Time Location Provider 08/10/2014 18:00 [facility] Family Med Cintia Song MD 08/14/2014 11:30 [facility] Cardiology Chasity Gaitan MD Attention: Contact your local Clinic if further appointment detail needed. Your Goals/Additional instructions: Source: [facility] POWERCHART Document Id: [id number] PING PROCESSOR Miscellaneous - Cintia Cobb M.D. - 07/27/2014 2:12 PM SHIPPING PROCESSOR Ambulatory Discharge Medication List [address] [id number] Visit Information Name: LAZ LUNA [facility] Number: [id number] Visit Date: 07/27/2014 14:12:27 Attending [...] swelling This is a CHANGE Routed to [address] [address] hydrochlorothiazide (hydrochlorothiazide 25 mg oral tablet) 1 Tablet(s), Oral, once a day high bloodpressure This is a CHANGE Routed to [address] [address] hydrocortisone topical (hydrocortisone 2.5% topical lotion) 1 jannie, Topical, three times a day ibuprofen (Advil) 200 mg, Oral, 2 tabs daily insulin glargine (Lantus Solostar Pen 100 units/mL subcutaneous solution) 75 units, Subcutaneous, once a day diabetes This is a CHANGE Routed to [address] [address] liraglutide (Victoza) 1.8 mg, Subcutaneous, once a day lisinopril (lisinopril 40 mg oral tablet) 1 Tablet(s), Oral, two times a day high blood pressure This is a CHANGE Routed to [address] [address] metFORMIN (metformin 1000 mg oral tablet) 1 Tablet(s), Oral, two times a day with meals diabetes This is a CHANGE Routed to [address] [address] metoprolol (metoprolol tartrate 25 mg oral tablet) 1 Tablet(s), Oral, two times a day omeprazole (omeprazole 20 mg oral delayed release capsule) 1 cap, Oral, once a day simvastatin (simvastatin 40 mg oral tablet) 1 Tablet(s), Oral, once a day (at bedtime) high cholesterol This is a CHANGE Routed to [address] [address] tadalafil (Cialis 20 mg oral [...] MD Signed On:27-JUL-2014 14:12:20 Additional Information: Source: [facility] POWERCHART Document Id: [id number] PING PROCESSOR Miscellaneous - Anne Marie Tuttle L.PPiliN. - 07/27/2014 12:11 PM CST Health Assessment Health Assessment Entered On: 07/27/2014 12:12 SHIPPING PROCESSOR Performed On: 07/27/2014 12:11 SHIPPING PROCESSOR by ANNE MARIE TUTTLE LPN, RT Health Assessment Complete Health Assessment Complete or Modified : Annual Health Assessment Annual Health Assessment Completed : Yes ANNE MARIE TUTTLE LPN, RT - 07/27/2014 12:11 SHIPPING PROCESSOR Nutrition Nutrition Risk Factors by History Adult : None ANNE MARIE TUTTLE LPN, RT - 07/27/2014 12:11 SHIPPING PROCESSOR Functional Current Daily Living Assistance : None ANNE MARIE TUTTLE LPN, RT - 07/27/2014 12:11 SHIPPING PROCESSOR Dependent Habits Tobacco Use/Currently Using : No Smoking Status : Never smoker ANNE MARIE TUTTLE LPN, RT - 07/27/2014 12:11 SHIPPING PROCESSOR Tobacco Use Grid Last Use : never ANNE MARIE TUTTLE LPN, RT - 07/27/2014 12:11 SHIPPING PROCESSOR Caffeine Use Grid Caffeine Use : Current Type : Coffee, Soft drinks Frequency : Weekly Amount : soda- weekly; coffee- 1x/week ANNE MARIE TUTTLE LPN, RT - 07/27/2014 12:11 SHIPPING PROCESSOR Recreational Drug Use Grid Drug Use : None ANNE MARIE TUTTLE LPN, RT - 07/27/2014 12:11 SHIPPING PROCESSOR Psychosocial Domestic Abuse Concerns : None Yazidism Preference : Unknown ANNE MARIE TUTTLE LPN, RT - 07/27/2014 12:11 SHIPPING PROCESSOR Advance Directive Advanced Directives : No Advance Directive Additional Information : No ANNE MARIE TUTTLE LPN, RT - 07/27/2014 12:11 SHIPPING PROCESSOR Educ Needs Learning Style Preference Adult Grid Patient : Demonstration, Printed materials, Verbal explanation, Video/Educational TV Family : None ANNE MARIE TUTTLE LPN, RT - 07/27/2014 12:11 SHIPPING PROCESSOR Source: [facility] POWERCHART Document Id: [id number] SHIPPING PROCESSOR!33 PING PROCESSOR Miscellaneous - Anne Marie Tuttle L.P.N. - 07/27/2014 12:04 PM CST Adult Manager Wound Intake/History Adult Manager Wound Intake/History Entered On: 07/27/2014 12:09 SHIPPING PROCESSOR Performed On: 07/27/2014 12:04 SHIPPING PROCESSOR by ANNE MARIE TUTTLE LPN, RT Intake [...] MARIE TUTTLE LPN, RT - 07/27/2014 12:04 SHIPPING PROCESSOR General Info Information Given By : Patient Preferred Communication Mode : Verbal Languages : Tongan Is Patient Female and 13-50 no hysterectomy : No ANNE MARIE TUTTLE LPN, RT - 07/27/2014 12:04 SHIPPING PROCESSOR Subjective Pain Symptoms : Yes ANNE MARIE TUTTLE LPN, RT - 07/27/2014 12:04 SHIPPING PROCESSOR Pain Pain Assessment Grid Pain 1 Pain 2 Location : Shoulder Lower leg Laterality : Left Bilateral ANNE MARIE TUTTLE LPN, RT - 07/27/2014 12:04 SHIPPING PROCESSOR ANNE MARIE TUTTLE LPN, RT - 07/27/2014 12:04 SHIPPING PROCESSOR Dependent Habits Tobacco Use/Currently Using : No Smoking Status : Never smoker ANNE MARIE TUTTLE LPN, RT - 07/27/2014 12:04 SHIPPING PROCESSOR Tobacco Use Grid Last Use : never ANNE MARIE TUTTLE LPN, RT - 07/27/2014 12:04 SHIPPING PROCESSOR Caffeine Use Grid Caffeine Use : Current Type : Coffee, Soft drinks Frequency : Weekly Amount : soda- weekly; coffee- 1x/week ANNE MARIE TUTTLE LPN, RT - 07/27/2014 12:04 SHIPPING PROCESSOR Recreational Drug Use Grid Drug Use : None ANNE MARIE TUTTLE LPN, RT - 07/27/2014 12:04 SHIPPING PROCESSOR ID Screen Drug Resistant Organism : No Travel Within Last 21 Days : No ANNE MARIE TUTTLE LPN, RT - 07/27/2014 12:04 SHIPPING PROCESSOR Source: [facility] POWERCHART Document Id: [id number] SHIPPING PROCESSOR!49 PING PROCESSOR documented in this encounter Plan of Treatment Not on filedocumented as of this encounter Procedures Procedure Name Priority Date/Time Associated Comments Diagnosis CBC WITHOUT Routine 07/27/2014 12:49 Results for this DIFFERENTIAL, B PM SHIPPING PROCESSOR procedure ar e in the results section. HEMOGLOBIN A1C, B Routine 07/27/2014 12:49 Result s for this PM SHIPPING PROCESSOR procedure are i n the results section. COMPREHENSIVE Routine 07/27/2014 12:49 Results fo r this METABOLIC PANEL, S/P PM SHIPPING PROCESSOR procedu re are in the results section. documented in this encounter Results CBC without Differential (07/27/2014 12:49 PM SHIPPING PROCESSOR) P athologist Signature Leukocytes 10.2 3.5 - 10.5 POWERCHART X109L Erythrocytes 5.05 4.32 - 5.72 POWERCHART D0121X Hemoglobin 14.5 13.5 - 17.5 POWERCHART GDL Hematocrit 44.9 38.8 - 50.0 POWERCHART MCV 88.9 81.0 - 95.0 POWERCHART FL HX RDW 14.4 11.8 - 15.6 POWERCHART Platelet Count 183 150 - 450 POWERCHART X109L Specimen (Source) Anatomical Collection Method Collection Time Re ceived Time Location / / Volume Laterality Blood 07/27/2014 12:49 PM SHIPPING PROCESSOR Cintia Copeland M.D. LAB BLOOD ADD-ON Performing Organization Address City/State/ZIP Code Phon e Number POWERCHART (ABNORMAL) Hemoglobin A1c (07/27/2014 12:49 PM SHIPPING PROCESSOR) P athologist Signature Hemoglobin A1c, 8.6 (H) <=5.6 A1C POWERCHART B Specimen (Source) Anatomical Collection Method Collection Time Re ceived Time Location / / Volume Laterality Blood 07/27/2014 12:49 PM SHIPPING PROCESSOR Cintia Copeland M.D. LAB BLOOD ADD-ON Performing Organization Address City/State/ZIP Code Phon e Number POWERCHART (ABNORMAL) CMP (Comprehensive Metabolic Panel) (07/27/2014 12:49 PM SHIPPING PROCESSOR) Patholo gist Method Time Signature Anion Gap [...] GDL HXeGFR (MDRD) 57 (L) >=60 POWERCHART [id number] 2 eGFR Black/ >60 >=60 POWERCHART Yemeni [id number] 2 Specimen (Source) Anatomical Collection Method Collection Time Re ceived Time Location / / Volume Laterality Blood 07/27/2014 12:49 PM SHIPPING PROCESSOR Cintia Copeland M.D. LAB BLOOD ADD-ON Performing Organization Address City/State/ZIP Code Phon e Number POWERCHART documented in this encounter Visit Diagnoses Not on filedocumented in this encounter Additional Health Concerns Assessment Noted Time PHQ-9 Depression Total Score: 18 02/14/2013 9:53 AM CD T documented as of this encounter
--- OUTSIDE RECORDS SUMMARY | 2022-08-19 10:35 | XMS_ITS | Encounter Summary ---
:1960 Author Organization [facility] Address [address] [place] [address] Care Team Providers Name Role Phone Unavailable Primary Care Provider Unavailable Encounter Details Date Type Department Care Team Description 08/10/2014 Hospital Encounter [facility] [place] Kevin Aguirre M.D. [address] [place] [phone] (Wo rk) Social History Tobacco Use Types Packs/Day Years Used Date Smoking Tobacco: Never Assessed Sex Assigned at Date Recorded Not on file documented as of this encounter Last Filed Vital Signs Vital Sign Reading Time Taken Comments Blood Pressure 155/73 08/10/2014 7:21 PM HAND CANDY CUTTER Pulse 57 08/10/2014 6:11 PM HAND CANDY CUTTER Temperature - - Respiratory Rate - - Oxygen Saturation - - Inhaled Oxygen Concentration - - Weight 167 kg (368 lb 2.7 oz) 08/10/2014 6:11 PM HAND CANDY CUTTER Height 185 cm (6' 0.84) 08/10/2014 7:21 PM HAND CANDY CUTTER Body Mass Index 48.79 08/10/2014 6:11 PM HAND CANDY CUTTER documented in this encounter H&P Notes Kevin Cobb M.D. - 08/10/2014 6:05 PM CST [id number] CHIEF COMPLAINT/REASON FOR VISIT Preanesthesia medical exam. HISTORY OF PRESENT ILLNESS Ed is a 54-year-old, male who presents today for preanesthesia medical exam prior to undergoing gastric bypass surgery on August 25 in [facility] in [place]. He has never had any problems with [...] drink any alcohol. 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 VITAL SIGNS Temperature 36.3. Pulse is [...] KILGORE MD On: 08/24/2014 05:13 PM Source: [facility] MHSDOLBEYNONRADSYS Document Id: [id number] CANDY CUTTER documented in this encounter Nursing Notes Selam Ferrell R.N. - 07/20/2014 1:34 PM CST holter monitor Email sent to Dr. Reyes that the holter monitor and EKG are available for him to review. Electronically Signed By: SELAM FERRELL RN On: 07/20/2014 01:35 PM Modified by and Electronically Signed by: SELAM FERRELL RN On: 07/20/2014 01:35 PM Source: [facility] POWERCHART Document Id: [id number] CANDY CUTTER documented in this encounter Miscellaneous Notes Miscellaneous - Anne Marie Tuttle L.PPiliNPili - 08/10/2014 7:21 PM CST Ambulatory Vitals Height Weight Ambulatory Vitals Height Weight Entered On: 08/10/2014 19:21 HAND CANDY CUTTER Performed On: 08/10/2014 19:21 HAND CANDY CUTTER by ANNE MARIE TUTTLE LPN, RT Vitals/Ht/Wt Systolic Blood Pressure : 155 mmHg (HI) Diastolic Blood Pressure : 73 mmHg NIBP Mean : 100 mmHg BP Location : Left upper extremity Blood Pressure Cuff Size : Large Height : 185 cm(Converted to: 6 ft 1 inch(es), 73 inch(es)) ANNE MARIE TUTTLE LPN, RT - 08/10/2014 19:21 HAND CANDY CUTTER Source: [facility] POWERCHART Document Id: [id number] HAND CANDY CUTTER!8 CANDY CUTTER Miscellaneous - Kevin Cobb M.D. - 08/10/2014 7:14 PM HAND CANDY CUTTER Ambulatory Patient Summary [place] - [address] [id number] Visit Information Name: NOEMÍ LUNA [facility] Number: [id number] Current Date: 08/10/2014 19:14:13 Physicians [...] leg swellingThis is a CHANGE Routed to [address] [address] hydrochlorothiazide (hydrochlorothiazide 25 mg oral tablet) 2 [...] appointment detail needed. Your Goals/Additional instructions: Source: [facility] POWERCHART Document Id: [id number] CANDY CUTTER Miscellaneous - Kevin Cobb M.D. - 08/10/2014 7:14 PM HAND CANDY CUTTER Ambulatory Discharge Medication List [address] [place] [id number] Visit Information Name: NOEMÍ LUNA [facility] Number: [id number] Visit Date: 08/10/2014 19:14:11 Attending [...] leg swellingThis is a CHANGE Routed to [address] [address] hydrochlorothiazide (hydrochlorothiazide 25 mg oral [...] MD Signed On:10-AUG-2014 19:13:51 Additional Information: Source: [facility] POWERCHART Document Id: [id number] CANDY CUTTER Miscellaneous - Anne Marie Tuttle, AlexandreP.N. - 08/10/2014 6:24 PM CST Ambulatory Vitals Height Weight Ambulatory Vitals Height Weight Entered On: 08/10/2014 18:26 HAND CANDY CUTTER Performed On: 08/10/2014 18:24 HAND CANDY CUTTER by ANNE MARIE TUTTLE LPN, RT Vitals/Ht/Wt Systolic Blood Pressure : 162 mmHg (>HHI) Diastolic Blood Pressure : 84 mmHg NIBP Mean : 110 mmHg BP Location : Left upper extremity Blood Pressure Cuff Size : Large Height : 185 cm(Converted to: 6 ft 1 inch(es), 73 inch(es)) ANNE MARIE TUTTLE LPN, - 08/10/2014 18:24 HAND CANDY CUTTER Source: [facility] POWERCHART Document Id: [id number] HAND CANDY CUTTER!8 CANDY CUTTER Miscellaneous - Anne Marie Tuttle L.P.N. - 08/10/2014 6:20 PM CST Obstructive Sleep Apnea Obstructive Sleep Apnea Entered On: 08/10/2014 18:22 HAND CANDY CUTTER Performed On: 08/10/2014 18:20 HAND CANDY CUTTER by ANNE MARIE TUTTLE LPN, RT CELESTE Screening Known Obstructive Sleep Apnea : No - NOT diagnosed with CELESTE ANNE MARIE TUTTLE LPN, RT - 08/10/2014 18:20 HAND CANDY CUTTER CELESTE Assessment Do you have high blood [...] ANNE MARIE TUTTLE LPN, - 08/10/2014 18:20 HAND CANDY CUTTER [facility] POWER[facility] Document Id: [id number] HAND CANDY CUTTER!10 CANDY CUTTER Miscellaneous - Anne Marie Tuttle L.P.N. - 08/10/2014 6:11 PM CST Adult Fermenter Helper Intake/History Adult Fermenter Helper Intake/History Entered On: 08/10/2014 18:15 HAND CANDY CUTTER Performed On: 08/10/2014 18:11 HAND CANDY CUTTER by ANNE MARIE TUTTLE LPN, RT Intake Chief Complaint : preop. surgery gastricbypass in 08/25/2014 [place] Ambulatory Intake Additional Information : concerned about [...] MARIE Lindsay LPN, RT - 08/10/2014 18:11 HAND CANDY CUTTER General Info Information Given By : Patient Preferred Communication Mode : Verbal Languages : Indonesian Is Patient Female and 13-50 no hysterectomy : No TONYA ANNE MARIE Lindsay LPN, RT - 08/10/2014 18:11 HAND CANDY CUTTER Subjective Pain Symptoms : Yes TONYA ANNE MARIE Lindsay LPN, RT - 08/10/2014 18:11 HAND CANDY CUTTER Pain Pain Assessment Grid Pain 1 Location : Lower back Laterality : Right ANNE MARIE TUTTLE Angélica ZURITA, RT - 08/10/2014 18:11 HAND CANDY CUTTER Dependent Habits Tobacco Use/Currently Using : No Smoking Status : Never smoker ANNE MARIE TUTTLE LPN, RT - 08/10/2014 18:11 HAND CANDY CUTTER Tobacco Use Grid Last Use : never TONYA ANNE MARIE Lindsay LPN, RT - 08/10/2014 18:11 HAND CANDY CUTTER Caffeine Use Grid Caffeine Use : Current Type : Coffee, Soft drinks Frequency : Weekly Amount : soda- weekly; coffee- 1x/week TONYA ANNE MARIE Lindsay LPN, RT - 08/10/2014 18:11 HAND CANDY CUTTER Recreational Drug Use Grid Drug Use : None TONYA ANNE MARIE Lindsay LPN, RT - 08/10/2014 18:11 HAND CANDY CUTTER ID Screen Drug Resistant Organism : No Travel Within Last 21 Days : No TONYA ANNE MARIE Lindsay LPN, RT - 08/10/2014 18:11 HAND CANDY CUTTER [facility] Document Id: [id number] HAND CANDY CUTTER!47 CANDY CUTTER documented in this encounter Plan of Treatment Not on filedocumented as of this encounter Visit Diagnoses Not on filedocumented in this encounter Additional Health Concerns Assessment Noted Time PHQ-9 Depression Total Score: 18 02/14/2013 9:53 AM CD T documented as of this encounter
--- OUTSIDE RECORDS SUMMARY | 2022-08-19 10:35 | XMS_ITS | Encounter Summary ---
:1960 Author Organization [facility] Address [address] [place] [address] Care Team Providers Name Role Phone Unavailable Primary Care Provider Unavailable Encounter Details Date Type Department Care Team Description 12/16/2013 Hospital Encounter HX [facility] Cintia Aguirre M.D. [address] [place] [phone] (Wo rk) Social History Tobacco Use [...] Cobb M.D. 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 Source: [facility] POWERCHART Document Id: [id number] Electronically signed by Day[facility] Commercial Loan Analyst [id number] at 02/03/2017 8:59 AM CDT documented in this encounter Plan of Treatment Not on filedocumented as of this encounter Visit Diagnoses Not on filedocumented in this encounter Additional Health Concerns Assessment Noted Time PHQ-9 Depression Total Score: 18 02/14/2013 9:53 AM CD T documented as of this encounter
--- OUTSIDE RECORDS SUMMARY | 2022-08-19 10:35 | XMS_ITS | Encounter Summary ---
:1960 Author Organization [facility] Address [address] [place] [address] Care Team Providers Name Role Phone Unavailable Primary Care Provider Unavailable Encounter Details Date Type Department Care Team Description 08/30/2013 Hospital Encounter HX [facility] [place] Cintia Aguirre M.D. [address] [place] [phone] (Wo rk) Social History Tobacco Use Types Packs/Day Years Used Date Smoking Tobacco: Never Assessed Sex Assigned at Date Recorded Not on file documented as of this encounter Last Filed Vital Signs Vital Sign Reading Time Taken Comments Blood Pressure 160/100 08/30/2013 11:22 AM MANAGER REVIEW Pulse 56 08/30/2013 11:15 AM MANAGER REVIEW Temperature - - Respiratory Rate - - Oxygen Saturation - - Inhaled Oxygen Concentration - - Weight 149 kg (329 lb 5.9 oz) 08/30/2013 11:15 AM MANAGER REVIEW Height 180 cm (5' 10.87) 08/30/2013 11:15 AM MANAGER REVIEW Body Mass Index 46.11 08/30/2013 11:15 AM MANAGER REVIEW documented in this encounter Progress Notes Cintia Cobb M.D. - 08/30/2013 11:02 AM CST [id number] CHIEF COMPLAINT/REASON FOR VISIT Followup blood pressure. [...] KILGORE MD On: 09/08/2013 02:46 PM Source: [facility] MHSDOLBEYNONRADSYS Document Id: [id number] GER REVIEW documented in this encounter Miscellaneous Notes Miscellaneous - Cintia Cobb M.D. - 08/30/2013 11:53 AM MANAGER REVIEW Ambulatory Patient Summary [facility] [address] [facility] [place] [address] Visit Information Name: LAZ LUNA [facility] Number: [id number] Current Date: 08/30/2013 11:53:32 Physicians [...] appointment detail needed. Your Goals/Additional instructions: Source: [facility] POWERCHART Document Id: [id number] GER REVIEW Miscellaneous - Cintia Cobb M.D. - 08/30/2013 11:53 AM MANAGER REVIEW Ambulatory Depart Summary [address] [address] Visit Information Name: LAZ LUNA [facility] Number: [id number] Visit Date: 08/30/2013 11:53:28 Attending [...] times a day This is a CHANGE [address] [address] metFORMIN (metformin 1000 mg oral [...] in case of emergency. Additional Information: Source: [facility] POWERCHART Document Id: [id number] GER REVIEW Miscellaneous - Anne Marie Tuttle L.P.N. - 08/30/2013 11:22 AM CST Ambulatory Vitals Height Weight Ambulatory Vitals Height Weight Entered On: 08/30/2013 11:22 MANAGER REVIEW Performed On: 08/30/2013 11:22 MANAGER REVIEW by ANNE MARIE TUTTLE LPN, RT Vitals/Ht/Wt Systolic Blood Pressure : 160 mmHg (HI) Diastolic Blood Pressure : 100 mmHg (>HHI) NIBP Mean : 120 mmHg BP Location : Left upper extremity Blood Pressure Cuff Size : Large ANNE MARIE TUTTLE LPN, RT - 08/30/2013 11:22 MANAGER REVIEW Source: [employer] Document Id: [id number] MANAGER REVIEW!7 GER REVIEW Miscellaneous - Anne Marie Tuttle L.P.N. - 08/30/2013 11:15 AM CST Adult Showroom Manager Intake/History Adult Showroom Manager Intake/History Entered On: 08/30/2013 11:18 MANAGER REVIEW Performed On: 08/30/2013 11:15 MANAGER REVIEW by ANNE MARIE TUTTLE LPN, RT Intake [...] ANNE MARIE TUTTLE LPN, - 08/30/2013 11:15 MANAGER REVIEW General Info Information Given By : Patient Preferred Communication Mode : Verbal Languages : Tajik ANNE MARIE TUTTLE LPN, RT - 08/30/2013 11:15 MANAGER REVIEW Subjective Pain Symptoms : No TONYA ANNE MARIE Lindsay LPN, RT - 08/30/2013 11:15 MANAGER REVIEW Dependent Habits Tobacco Use/Currently Using : No Smoking Status : Never smoker ANNE MARIE TUTTLE LPN, RT - 08/30/2013 11:15 MANAGER REVIEW Tobacco Use Grid Last Use : never ANNE MARIE TUTTLE LPN, RT - 08/30/2013 11:15 MANAGER REVIEW Caffeine Use Grid Caffeine Use : Current Type : Coffee, Soft drinks Frequency : Weekly Amount : soda- weekly; coffee- 1x/week ANNE MARIE TUTTLE LPN, RT - 08/30/2013 11:15 MANAGER REVIEW Recreational Drug Use Grid Drug Use : None ANNE MARIE TUTTLE LPN, RT - 08/30/2013 11:15 MANAGER REVIEW Source: [employer] Document Id: [id number] MANAGER REVIEW!37 GER REVIEW documented in this encounter Plan of Treatment Not on filedocumented as of this encounter Visit Diagnoses Not on filedocumented in this encounter Additional Health Concerns Assessment Noted Time PHQ-9 Depression Total Score: 18 02/14/2013 9:53 AM CD T documented as of this encounter
--- OUTSIDE RECORDS SUMMARY | 2022-08-19 10:35 | XMS_ITS | Encounter Summary ---
:1960 Author Organization [facility] Address [address] [place] [address] Care Team Providers Name Role Phone Unavailable Primary Care Provider Unavailable Encounter Details Date Type Department Care Team Description 09/13/2013 Hospital Encounter HX [facility] Song FlCintia domingo M.D. [address] [place] [phone] (Wo rk) Social History Tobacco Use Types Packs/Day Years Used Date Smoking Tobacco: Never Assessed Sex Assigned at Date Recorded Not on file documented as of this encounter Last Filed Vital Signs Vital Sign Reading Time Taken Comments Blood Pressure 142/98 09/13/2013 1:47 PM NETWORK CONTROL TECHNICIAN Pulse - - Temperature - - Respiratory Rate - - Oxygen Saturation - - Inhaled Oxygen Concentration - - Weight - - Height - - Body Mass Index - - documented in this encounter Miscellaneous Notes Miscellaneous - Harvey Packer LPiliP.N. - 09/13/2013 2:10 PM CST General Message From: HARVEY PACKER LPN To: CINTIA KILGORE MD; Sent: 09/13/2013 14:10:09 NETWORK CONTROL TECHNICIAN Subject: General Message S. Patient came [...] call him with any questions or concerns. [phone] Verbal permission given to this nurse, you make speak with his . Magali (he calls her Fabiola). Source: [facility] [employer] Document Id: [id number] Miscellaneous - Harvey Packer L.P.N. - 09/13/2013 1:47 PM CST Ambulatory Vitals Height Weight Ambulatory Vitals Height Weight Entered On: 09/13/2013 13:47 NETWORK CONTROL TECHNICIAN Performed On: 09/13/2013 13:47 NETWORK CONTROL TECHNICIAN by HARVEY PACKER LPN Vitals/Ht/Wt Systolic Blood Pressure : 142 mmHg (HI) Diastolic Blood Pressure : 102 mmHg (>HHI) NIBP Mean : 115 mmHg HARVEY PACKER LPN - 09/13/2013 13:47 NETWORK CONTROL TECHNICIAN [facility], Document Id: [id number] NETWORK CONTROL TECHNICIAN!5 ORK CONTROL TECHNICIAN Miscellaneous - Harvey Packer L.P.N. - 09/13/2013 1:47 PM CST Ambulatory Vitals Height Weight Ambulatory Vitals Height Weight Entered On: 09/13/2013 13:47 NETWORK CONTROL TECHNICIAN Performed On: 09/13/2013 13:47 NETWORK CONTROL TECHNICIAN by HARVEY PACKER LPN Vitals/Ht/Wt Systolic Blood Pressure : 144 mmHg (HI) Diastolic Blood Pressure : 98 mmHg (>HHI) NIBP Mean : 113 mmHg HARVEY PACKER LPN - 09/13/2013 13:47 NETWORK CONTROL TECHNICIAN Source: [facility] [employer] Document Id: [id number] NETWORK CONTROL TECHNICIAN!5 ORK CONTROL TECHNICIAN documented in this encounter Plan of Treatment Not on filedocumented as of this encounter Visit Diagnoses Not on filedocumented in this encounter Additional Health Concerns Assessment Noted Time PHQ-9 Depression Total Score: 18 02/14/2013 9:53 AM CD T documented as of this encounter
--- OUTSIDE RECORDS SUMMARY | 2022-08-19 10:35 | XMS_ITS | Encounter Summary ---
:1960 Author Organization [facility] Address [address] [place] [address] Care Team Providers Name Role Phone Unavailable Primary Care Provider Unavailable Encounter Details Date Type Department Care Team Description 11/18/2013 Hospital Encounter HX [facility] ED Pratik Aguila M.D. [address] [place] [phone] (Wo rk) Social History Tobacco Use Types [...] 11/20/2013 3:56 PM CDT ED Discharge Instructions [address] [address] Name: JEREMYNOEMÍ Date of : 1960 12:00 AM Visit Date: 11/18/2013 4:27 PM [facility] Number: [id number] [address] [facility] [id number] Primary Care Provider: KEVIN KILGORE MD IMPORTANT: [facility] in [place] would like to thank you for allowing us to assist you with your healthcare needs. The following includes patient education materials and informationregarding your injury/illness. Chief Complaint: Shoulder injury - Major; Shoulder pain-swelling; Right shoulder pain for about a month, getting worse Follow-Up Instructions: With: Address: When: noni Within As Needed Comments: With: Address: When: SASHA ZULETA [address] [place] [address] Business (1) Within As Needed Comments: With: Address: When: KEVIN KILGORE [address] [place] [address] Business (1) Within As Needed Comments: Patient Education Materials: [id number] ROTATOR CUFF TEAR The rotator cuff is [...] of strength in the affected arm ?? 3470-2261 [facility], [address] [place] [address]. All rights reserved. This information is not intended as a substitute for professional medical care. Always follow your healthcare professional's instructions. [id number] SHOULDER IMPINGEMENT SYNDROME The rotator cuff is [...] of strength in the affected side ?? [phone], [place] [address]. All rights reserved. This information is not intended as a substitute for professional medical care. Always follow your healthcare professional's instructions. [id number] Understanding Rotator Cuff Injuries The rotator cuff [...] surgery to repair the rotator cuff. ?? 7586-6964 [facility], [address] [place] [address]. All rights reserved. This information is not [...] document has images extracted. Please consider using [employer] for all your patient education needs. Source: [facility] POWERCHART Document Id: [id number] Sabra Aguila M.D. - 11/20/2013 3:56 PM CDT ED Depart Summary [facility] Emergency Department Clinical Discharge Summary PERSON INFORMATION Name NOEMÍ LUNA Age 53 Years 1960 12:00 AM Sex Male Language Gabonese PCP KEVIN KILGORE MD Marital Status Visit Id Visit Reason Shoulder injury - Major; Shoulder pain-swelling; Right shoulder pain for about a month,getting worse Specialty Enc Type Emergency Med Service Emergency Medicine Referred by [facility] ED Discharge 11/18/2013 5:17 PM Tracking Id [id number] Checkout 11/18/2013 5:17 PM Checkin 11/18/2013 4:27 PM Acuity 3 -Urgent Dispo Type * Discharged to Home or Self Care Arrival 11/18/2013 4:27 PM Reg Status LOS 000 00:50 Address: [address] [place] [phone] Comment: PROVIDER INFORMATION Provider Role Provider Contact Time SABRA AGUILA MD ED Provider 11/18/13 16:35 [facility] SOT[facility] SALES AND SERVICE ASSOCIATE Nurse 11/18/13 16:35 DIAGNOSIS Comment: PATIENT EDUCATION INFORMATION Instructions: ROTATOR CUFF TEAR; SHOULDER IMPINGEMENT SYNDROME; Understanding Rotator Cuff Injuries Follow up: With: Address: When: noni Within As Needed Comments: With: Address: When: SASHA ZULETA [address] [place] [address] Business (1) Within As Needed Comments: With: Address: [facility] [address] [place] [address] Business (1) Within As Needed Comments: [facility] [employer] [employer] Document Id: [id number] documented in this encounter ED Notes Lesli Sotomayor R.N. - 11/18/2013 5:17 PM CDT ED Pain Assessment ED Pain Assessment Entered On: 11/18/2013 17:17 CDT Performed On: 11/18/2013 17:17 CDT by LESLI SOTOMAYOR RN Pain Assessment Pain Symptoms : Yes LESLI SOTOMAYOR RN - 11/18/2013 17:17 CDT Source: [facility] MYTRND Document Id: [id number] CDT!3 Lesli Sotomayor RPiliN. - 11/18/2013 5:16 PM CDT ED Disposition Summary ED Disposition Summary Entered On: 11/18/2013 17:17 CDT Performed On: 11/18/2013 17:16 CDT by [facility] SALES AND SERVICE ASSOCIATE Disposition Summary Accompanied By : Alone Mode of Discharge : Ambulatory Transportation : Private vehicle Printed Discharge Instructions Given to Patient : Yes Patient Status at Discharge from ED : Unchanged LESLI SOTOMAYOR RN - 11/18/2013 17:16 CDT Source: [facility] MYTRND Document Id: [id number] CDT!7 Sabra Aguila M.D. - 11/18/2013 4:59 [...] on 09/29/2012 at 52 years. Comments: 09/30/2012 BRICK PAVER 15:06 STEVE COUCH CNP left Genital warts (ICD-9-CM 078.19) Comments: 09/30/2013 BRICK PAVER 11:47 ANOOP MESSER SHOTBLASTER onset unknown Tinea pedis* (ICD-9-CM 110.4) Comments: 09/30/2013 BRICK PAVER 11:47 ANOOP MESSER SHOTBLASTER onset unknown Tinea cruris. (ICD-9-CM 110.3) Comments: 09/30/2013 BRICK PAVER 11:47 ANOOP MESSER SHOTBLASTER onset unknown. Surgical history: Cystoscopy ([id number]) on 12/26/2009 at 49 Years. Comments: 02/20/2010 08:36 - STEVE ANDREA CNP [place] [facility] / normal PSA, TOTAL SCREENING ([id number]) on 12/26/2009 at 49 Years. Comments: 02/20/2010 08:38 - STEVE ANDREA DRUM CARRIER Done at [place] / Result: 1.55 Discectomy ([id number]) on 02/19/1989 at 28 Years. Comments: 12/28/2009 09:38 - STEVE ANDREA DRUM CARRIER lumbar L4-L5. Family history: Hypertension Father Congestive [...] AGUILA MD On: 11/20/2013 03:57 PM Source: [facility] POWERCHART Document Id: [id number]} Lesli Sotomayor RPiliNPili - 11/18/2013 4:40 PM [...] Medical ; Code: 600.00 ; Contributor System: Sc[employer]on ; Last Updated: 02/15/2010 10:00 CDT ; [...] Medical ; Code: 250.02 ; Contributor System: trippieceChart ; Last Updated: 07/24/2011 10:45 BRICK PAVER ; Life Cycle Date: 12/05/2010 ; Life Cycle Status: Active ; Responsible Provider: STEVE ANDREA CNP; Vocabulary: ICD-9-CM Eczema (ICD-9-CM :692.9 ) Name of Problem: Eczema ; Recorder: STEVE ANDREA CNP; Confirmation: Confirmed ; Classification: Medical ; Code: 692.9 ; Contributor System: PowerChart ; Last Updated: 09/05/2010 9:56 BRICK PAVER ; Life Cycle Date: 09/05/2010 ; Life [...] System: PowerChart ; Last Updated: 09/30/2012 15:06 BRICK PAVER ; Life Cycle Date: 09/30/2012 ; Life [...] Comments: 09/30/2013 11:47 - IKE QUEVEDOICA R SHOTBLASTER onset unknown Hyperlipidemia (ICD-9-CM :272.4 ) Name [...] Code: 695.89 ; Last Updated: 07/14/2012 14:36 BRICK PAVER ; Life Cycle Status: Active ; Responsible Provider: MARILUZ FRAGA MD; Vocabular y: ICD-9-CM Morbid Obesity (BMI > 40) (V85.4) (ICD-9-CM :278.01 ) Name of Problem: Morbid Obesity (BMI > 40) (V85.4) ; Onset Date: 04/04/2013 ; Recorder: TIERRA ALLRED; Confirmation: Confirmed ; Classification: Medical ; Code: 278.01 ; Last Updated: 04/04/2013 15:42 CDT ; Life Cycle Status: Active ; Responsible Provider: TIERRA ALRLED; Vocabulary: ICD-9-CM Obesity NOS (ICD-9-CM :278.00 ) Name of Problem: Obesity NOS ; Recorder: STEVE ANDREA CNP; Confirmation: Confirmed ; Classification: Medical ; Code: 278.00 ; Contributor System: PowerChart ; Last Updated: 09/05/2010 9:56 BRICK PAVER ; Life Cycle Date: 09/05/2010 ; Life Cycle Status: Active ; Responsible Provider: STEVE ANDREA CNP; Vocabulary: ICD-9-CM ; Comments: 09/30/2013 11:ANOOP ISAAC R SHOTBLASTER onset unknown Optic disc cupping (ICD-9-CM :377.14 [...] Medical ; Code: 110.3 ; Contributor System: Sc[employer]on ; Last Updated: 06/01/2013 9:06 CDT ; Life Cycle Date: 06/01/2013 ; Life Cycle Status: Active ; Responsible Provider: MARILUZ FRAGA MD; Vocabulary: ICD-9-CM ; Comments: 09/30/2013 11:ANOOP ISAAC RLPN onset unknown Tinea pedis* (ICD-9-CM :110.4 ) Name of Problem: Tinea pedis* ; Recorder: MARILUZ FRAGA MD; Confirmation: Confirmed ; Classification: Medical ; Code: 110.4 ; Contributor System: trippieceChart ; Last Updated: 06/01/2013 9:06 CDT ; Life Cycle Date: 06/01/2013 ; Life Cycle Status: Active ; Responsible Provider: MARILUZ FRAGA MD; Vocabulary: ICD-9-CM ; Comments: 09/30/2013 11:ANOOP ISAAC R SHOTBLASTER onset unknown Ulcer of skin NOS (ICD-9-CM :707.9 ) Name of Problem: Ulcer of skin NOS ; Recorder: HALEIGH SCHULTZ CNP; Confirmation: Confirmed ; Classification: Medical ; Code: 707.9 ; Contributor System: PowerChart; Last Updated: 09/18/2010 8:25 BRICK PAVER ; Life Cycle Date: 09/18/2010 ; Life Cycle Status: Active ; Responsible Provider: HALEIGH SCHULTZ CNP; Vocabulary: ICD-9-CM ; Comments: 09/30/2013 11:47 - ANOOP QUEVEDO LPN onset unknown Urge Incontinence (ICD-9-CM :788.31 ) Name of Problem: Urge Incontinence ; Recorder: STEVE ANDREA; Confirmation: Confirmed ; Classification: Medical ; Code: 788.31 ; Contributor System: [employer] ; Last Updated: 02/20/2010 8:39 CDT ; Life Cycle Date: 02/20/2010 ; Life Cycle Status: Active ; Responsible Provider: STEVE ANDREA CNP; Vocabulary: ICD-9-CM ; Comments: 09/30/2013 11:46 - ANOOP QUEVEDO LPN onset unknown Triage Chief Complaint Description : see triage Mode of Arrival ED : Private vehicle, Ambulatory Track : Trauma Other Languages : Gabonese Treatments Prior to Arrival : None LESLI [...] 16:40 CDT Gastrointestinal Nutrition ED : Adequate LESIL SOTOMAYOR RN - 11/18/2013 16:40 CDT Musculoskeletal [...] SOTOMAYOR RN - 11/18/2013 16:40 CDT Source: [facility] POWERCHART Document Id: [id number] CDT!39 Lesli Sotomayor R.N. - 11/18/2013 4:35 [...] Medical ; Code: 600.00 ; Contributor System: trippieceChart ; Last Updated: 02/15/2010 10:00 CDT ; [...] System: PowerChart ; Last Updated: 07/24/2011 10:45 BRICK PAVER ; Life Cycle Date: 12/05/2010 ; Life Cycle Status: Active ; Responsible Provider: STEVE ANDREA CNP; Vocabulary: ICD-9-CM Eczema (ICD-9-CM :692.9 ) Name of Problem: Eczema ; Recorder: STEVE ANDREA CNP; Confirmation: Confirmed ; Classification: Medical ; Code: 692.9 ; Contributor System: trippieceChart ; Last Updated: 09/05/2010 9:56 BRICK PAVER ; Life Cycle Date: 09/05/2010 ; Life Cycle Status: Active ; Responsible Provider: STEVE ANDREA CNP; Vocabulary: ICD-9-CM ; Comments: 09/30/2013 11:47 - ANOOP QUEVEDO LPN onset unknown Erectile dysfunction* (ICD-9-CM :607.84 ) Name of Problem: Erectile dysfunction* ; Recorder: STEVE ANDREA CNP; Confirmation: Confirmed ; Classification: Medical ; Code: 607.84 ; Contributor System: trippieceChart ; Last Updated: 12/28/2009 9:40 CDT ; [...] System: PowerChart ; Last Updated: 09/30/2012 15:06 BRICK PAVER ; Life Cycle Date: 09/30/2012 ; Life [...] Code: 695.89 ; Last Updated: 07/14/2012 14:36 BRICK PAVER ; Life Cycle Status: Active ; Responsible [...] System: PowerChart ; Last Updated: 09/05/2010 9:56 BRICK PAVER ; Life Cycle Date: 09/05/2010 ; Life [...] ; Comments: 09/30/2013 11:47 ANOOP GONZALEZ R SHOTBLASTER onset unknown Ulcer of skin NOS (ICD-9-CM :707.9 ) Name of Problem: Ulcer of skin NOS ; Recorder: HALEIGH SCHULTZ CNP; Confirmation: Confirmed ; Classification: Medical ; Code: 707.9 ; Contributor System: PowerChart; Last Updated: 09/18/2010 8:25 BRICK PAVER ; Life Cycle Date: 09/18/2010 ; Life Cycle Status: Active ; Responsible Provider: HALEIGH SCHULTZ CNP; Vocabulary: ICD-9-CM ; Comments: 09/30/2013 11:ANOOP ISAAC R SHOTBLASTER onset unknown Urge Incontinence (ICD-9-CM :788.31 ) Name of Problem: Urge Incontinence ; Recorder: STEVE ANDREA; Confirmation: Confirmed ; Classification: Medical ; Code: 788.31 ; Contributor System: PowerChart ; Last Updated: 02/20/2010 8:39 CDT ; Life Cycle Date: 02/20/2010 ; Life Cycle Status: Active ; Responsible Provider: STEVE ANDREA CNP; Vocabulary: ICD-9-CM ; Comments: 09/30/2013 11:46 - ANOOP QUEVEDO SHOTBLASTER onset unknown Triage Vital Signs Assessed : [...] Ambulatory Track : Trauma Other Languages : Gabonese Treatments Prior to Arrival : None STEPHANIE [...] GENERIC CODE Tracking Group : [facility] ED Tracking Acuity : 3 -Urgent [...] SOTOMAYOR RN - 11/18/2013 16:35 CDT Source: [employer] Document Id: [id number] CDT!16 documented in this encounter Miscellaneous Notes Miscellaneous - Lesli Sotomayor R.N. - 11/18/2013 5:17 PM CDT Valuables/Belongings Valuables/Belongings Entered On: 11/18/2013 17:17 CDT Performed On: 11/18/2013 17:17 CDT by LESLI SOTOMAYOR RN Valuables/Belongings Home Medication Disposition : None brought in with patient LESLI SOTOMAYOR RN - 11/18/2013 17:17 CDT Source: [employer] Document Id: [id number] CDT!3 Miscellaneous - Lesli Sotomayor R.N. - [...] Control : 7 Lynx Visit Level : 91450 Level 3 Treatments Prior to Arrival : None LESLI SOTOMAYOR RN - 11/18/2013 17:17 CDT Source: [facility] POWERCHART Document Id: [id number] CDT!17 documented in this encounter Plan of Treatment Not on filedocumented as of this encounter Visit Diagnoses Not on filedocumented in this encounter Additional Health Concerns Assessment Noted Time PHQ-9 Depression Total Score: 18 02/14/2013 9:53 AM CD T documented as of this encounter
--- OUTSIDE RECORDS SUMMARY | 2022-08-19 10:35 | XMS_ITS | Encounter Summary ---
:[address] [facility] Address [address] [place] [address] Care Team Providers Name Role Phone Unavailable Primary Care Provider Unavailable Encounter Details Date Type Department Care Team Description 11/04/2013 Hospital Encounter HX [facility] Cintia Aguirre M.D. [address] [place] [phone] (Wo rk) Social History Tobacco Use Types Packs/Day Years Used Date Smoking Tobacco: Never Assessed Sex Assigned at Date Recorded Not on file documented as of this encounter Last Filed Vital Signs Vital Sign Reading Time Taken Comments Blood Pressure 131/68 11/04/2013 1:48 PM X RAY PHYSICIAN Pulse 62 11/04/2013 11:23 AM X RAY PHYSICIAN Temperature - - Respiratory Rate 16 11/04/2013 11:23 AM X RAY PHYSICIAN Oxygen Saturation - - Inhaled Oxygen Concentration - - Weight 152 kg (335 lb 1.6 oz) 11/04/2013 11:23 AM X RAY PHYSICIAN Height - - Body Mass Index 46.04 10/26/2013 10:12 AM X RAY PHYSICIAN documented in this encounter Progress Notes Cintia Cobb M.D. - 11/04/2013 11:06 AM CST [id number] CHIEF COMPLAINT/REASON FOR VISIT Followup blood pressure. [...] blood sugars, his morning readings have been [id number] to 170 since we increased his Lantus. [...] KILGORE MD On: 11/15/2013 10:17 PM Source: [facility] MHSDOLBEYNONRADSYS Document Id: [id number] documented in this encounter Miscellaneous Notes Miscellaneous - Harvey Packer L.P.N. - 11/04/2013 1:48 PM CST Quality Measures Quality Measures Entered On: 11/04/2013 13:48 X RAY PHYSICIAN Performed On: 11/04/2013 13:48 X RAY PHYSICIAN by HARVEY PACKER LPN BP/Tobacco/Misc Systolic Blood Pressure : 131 mmHg Diastolic Blood Pressure : 68 mmHg HARVEY PACKER LPN - 11/04/2013 13:48 X RAY PHYSICIAN Source: [facility] POWERCHART Document Id: [id number] X RAY PHYSICIAN!4 X RAY PHYSICIAN Miscellaneous - Cintia Cobb M.D. - 11/04/2013 11:49 AM X RAY PHYSICIAN Ambulatory Patient Summary [address] [id number] Visit Information Name: LAZ LUNA [facility] Number: [id number] Current Date: 11/04/2013 11:49:57 [...] appointment detail needed. Your Goals/Additional instructions: Source: [facility] POWERCHART Document Id: [id number] X RAY PHYSICIAN Miscellaneous - Cintia Cobb M.D. - 11/04/2013 11:49 AM X RAY PHYSICIAN Ambulatory Discharge Medication List [address] [id number] Visit Information Name: LUNALAZ [facility] Number: [id number] Visit Date: 11/04/2013 11:49:53 [...] in case of emergency. Additional Information: Source: [facility] POWERCHART Document Id: [id number] X RAY PHYSICIAN Osbaldo - Anne Marie Tuttle LPiliP.N. - 11/04/2013 11:27 AM CST Ambulatory Vitals Height Weight Ambulatory Vitals Height Weight Entered On: 11/04/2013 11:28 X RAY PHYSICIAN Performed On: 11/04/2013 11:27 X RAY PHYSICIAN by ANNE MARIE TUTTLE LPN, RT Vitals/Ht/Wt Systolic Blood Pressure : 131 mmHg Diastolic Blood Pressure : 68 mmHg NIBP Mean : 89 mmHg BP Location : Right upper extremity Blood Pressure Cuff Size : Large ANNE MARIE TUTTLE LPN, - 11/04/2013 11:27 X RAY PHYSICIAN Source: [facility] KnCMinerCHART Document Id: [id number] X RAY PHYSICIAN!7 X RAY PHYSICIAN Anne Marie Dasilva L.P.N. - 11/04/2013 11:23 AM CST Adult Cut Off Saw Operator Pipe Blanks Intake/History Adult Cut Off Saw Operator Pipe Blanks Intake/History Entered On: 11/04/2013 11:26 X RAY PHYSICIAN Performed On: 11/04/2013 11:23 X RAY PHYSICIAN by ANNE MARIE TUTTLE LPN, RT Intake [...] MARIE TUTTLE LPN, RT - 11/04/2013 11:23 X RAY PHYSICIAN General Info Information Given By : Patient Preferred Communication Mode : Verbal Languages : Slovak ANNE MARIE TUTTLE LPN, RT - 11/04/2013 11:23 X RAY PHYSICIAN Subjective Pain Symptoms : No ANNE MARIE TUTTLE LPN, RT - 11/04/2013 11:23 X RAY PHYSICIAN Dependent Habits Tobacco Use/Currently Using : No Smoking Status : Never smoker ANNE MARIE TUTTLE LPN, RT - 11/04/2013 11:23 X RAY PHYSICIAN Tobacco Use Grid Last Use : never ANNE MARIE TUTTLE LPN, RT - 11/04/2013 11:23 X RAY PHYSICIAN Caffeine Use Grid Caffeine Use : Current Type : Coffee, Soft drinks Frequency : Weekly Amount : soda- weekly; coffee- 1x/week ANNE MARIE TUTTLE LPN, RT - 11/04/2013 11:23 X RAY PHYSICIAN Recreational Drug Use Grid Drug Use : None ANNE MARIE TUTTLE LPN, RT - 11/04/2013 11:23 X RAY PHYSICIAN Source: [facility] POWERCHART Document Id: [id number] X RAY PHYSICIAN!37 X RAY PHYSICIAN documented in this encounter Plan of Treatment Not on filedocumented as of this encounter Visit Diagnoses Not on filedocumented in this encounter Additional Health Concerns Assessment Noted Time PHQ-9 Depression Total Score: 18 02/14/2013 9:53 AM CD T documented as of this encounter
--- OUTSIDE RECORDS SUMMARY | 2022-08-19 10:35 | XMS_ITS | Encounter Summary ---
:1960 Author Organization [facility] Address [address] [place] [address] Care Team Providers Name Role Phone Unavailable Primary Care Provider Unavailable Encounter Details Date Type Department Care Team Description 09/13/2013 Hospital Encounter [facility]X [facility] Cintia Cobb M.D. [address] [place] [phone] (Wo rk) Social History Tobacco Use Types Packs/Day Years Used Date Smoking Tobacco: Never Assessed Sex Assigned at Date Recorded Not on file documented as of this encounter Miscellaneous Notes Miscellaneous - Cintia Cobb M.D. - 09/22/2013 12:13 PM RESIDENTIAL MENTAL HEALTH WORKER Normal Results Letter 22 September 2013 [facility] [address] [facility] [address] [place] [phone] Dear ED CARLYLE, Please review your lab [...] 07/11/2013 8.6 - 10.0 Sincerely, CINTIA KILGORE [facility] [place] [address] Electronic Signature Electronically Signed By: CINTIA KILGORE MD On: 22 September 2013 This document has images extracted. Source: [facility] Sphere FluidicsCHART Document Id: [id number] documented in this encounter Plan of Treatment Not on filedocumented as of this encounter Procedures Procedure Name Priority Date/Time Associated Diagnosis Comme nts BASIC METABOLIC Routine 09/13/2013 1:39 PM Result s for this PANEL, S/P RESIDENTIAL MENTAL HEALTH WORKER procedure are i n the results section. documented in this encounter Results (ABNORMAL) BMP (Basic Metabolic Panel) (09/13/2013 1:39 PM RESIDENTIAL MENTAL HEALTH WORKER) P athologist Signature Anion Gap 14 10 [...] POWERCHART MMOLL HXeGFR (MDRD) >60 >=60 POWERCHART [id number] eGFR >60 >=60 POWERCHART Black/ [id number] Turkmen Specimen (Source) Anatomical Collection Method Collection Time Re ceived Time Location / / Volume Laterality Blood 09/13/2013 1:39 PM RESIDENTIAL MENTAL HEALTH WORKER Cintia Copeland M.D. LAB BLOOD ADD-ON Performing Organization Address City/State/ZIP Code Phon e Number POWERCHART documented in this encounter Visit Diagnoses Not on filedocumented in this encounter Additional Health Concerns Assessment Noted Time PHQ-9 Depression Total Score: 18 02/14/2013 9:53 AM CD T documented as of this encounter
--- OUTSIDE RECORDS SUMMARY | 2022-08-19 10:35 | XMS_ITS | Encounter Summary ---
:1960 Author Organization [facility] Address [address] [place] [address] Care Team Providers Name Role Phone Unavailable Primary Care Provider Unavailable Encounter Details Date Type Department Care Team Description 03/21/2014 Hospital Encounter HX NO MAPPING Rocio Norman M.D. [address] [place] [phone] (Wo rk) Social History Tobacco [...] Norman M.D. - 03/21/2014 3:25 PM CDT [id number] HISTORY OF PRESENT ILLNESS Ed is a [...] NORMAN MD On: 03/22/2014 07:43 AM Source: [facility] MHSDOLBEYNONRADSYS Document Id: [id number] documented in this encounter Miscellaneous Notes Miscellaneous - John Norman M.D. - 03/21/2014 4:07 PM CDT Ambulatory Patient Summary [facility] [address] [id number] Visit Information Name: LAZ LUNA [facility] Number: [id number] Current Date: 03/21/2014 [...] appointment detail needed. Your Goals/Additional instructions: Source: [facility] POWERCHART Document Id: [id number] Miscellaneous - John Norman M.D. - 03/21/2014 4:07 PM CDT Ambulatory Discharge Medication List [place] [facility] [address] [id number] Visit Information Name: LUNALAZ [facility] Number: [id number] Visit Date: 03/21/2014 [...] MD Signed On:21-MAR-2014 16:07:07 Additional Information: Source: [facility] POWERCHART Document Id: [id number] Miscellaneous - Lacie Donaldson R.N. - 03/21/2014 3:31 PM CDT Adult Manager Psychology Intake/History Adult Manager Psychology Intake/History Entered On: 03/21/2014 15:34 CDT Performed On: 03/21/2014 15:31 CDT by LACIE DONALDSON gauge and weigh machine operator Chief Complaint : f/u right shoulder [...] Preferred Communication Mode : Verbal Languages : Bangladeshi LACIE DONALDSON RN - 03/21/2014 15:31 CDT [...] DONALDSON RN - 03/21/2014 15:31 CDT Source: [facility] POWERCHART Document Id: [id number] CDT!39 documented in this encounter Plan of Treatment Not on filedocumented as of this encounter Visit Diagnoses Not on filedocumented in this encounter Additional Health Concerns Assessment Noted Time PHQ-9 Depression Total Score: 18 02/14/2013 9:53 AM CD T documented as of this encounter
--- OUTSIDE RECORDS SUMMARY | 2022-08-19 10:35 | XMS_ITS | Encounter Summary ---
:1960 Author Organization [facility] Address [address] [place] [address] Care Team Providers Name Role Phone Unavailable Primary Care Provider Unavailable Encounter Details Date Type Department Care Team Description 03/06/2014 Hospital Encounter HX [facility] Song FlCintia domingo M.D. [address] [place] [phone] (Wo rk) Social History Tobacco Use [...] SOB, dizziness, chest pain. Per Dr. Reyes ([place] Provider) patient advised to return if symptoms develope. Patient understood. Please advise anynew orders. Source: [facility] Twitt2go Document Id: [id number] Miscellaneous - Alvina Langston, L.P.N. - 03/06/2014 4:01 PM CDT Ambulatory Vitals Height Weight Ambulatory Vitals Height Weight Entered On: 03/06/2014 16:01 CDT Performed On: 03/06/2014 16:01 CDT by ALVINA ALNGSTON LPN Vitals/Ht/Wt Peripheral Pulse Rate : 46 /min (<LLOW) Systolic Blood Pressure : 157 mmHg (HI) Diastolic Blood Pressure : 86 mmHg NIBP Mean : 110 mmHg BP Location : Left upper extremity Blood Pressure Cuff Size : Large Height : 185 cm(Converted to: 6 ft 1 inch(es), 73 inch(es)) ALVINA LANGSTON LPN - 03/06/2014 16:01 CDT [facility] Document Id: [id number] CDT!9 Miscellaneous - Alvina Langston, L.P.N. - [...] LANGSTON LPN - 03/06/2014 16:01 CDT Source: [email or web address] Document Id: [id number] CDT!9 documented in this encounter Plan of Treatment Not on filedocumented as of this encounter Visit Diagnoses Not on filedocumented in this encounter Additional Health Concerns Assessment Noted Time PHQ-9 Depression Total Score: 18 02/14/2013 9:53 AM CD T documented as of this encounter
--- OUTSIDE RECORDS SUMMARY | 2022-08-19 10:35 | XMS_ITS | Encounter Summary ---
:1960 Author Organization [facility] Address [address] [place] [address] Care Team Providers Name Role Phone Unavailable Primary Care Provider Unavailable Encounter Details Date Type Department Care Team Description 12/06/2013 Hospital Encounter HX NO MAPPING Rocio Norman M.D. [address] [place] [phone] (Wo rk) Social History Tobacco [...] Norman M.D. - 12/06/2013 2:58 PM CDT [id number] HISTORY OF PRESENT ILLNESS Ed is a [...] NORMAN MD On: 12/08/2013 10:00 AM Source: [facility] MHSDOLBEYNONRADSYS Document Id: [id number] documented in this encounter Miscellaneous Notes Miscellaneous - John Norman M.D. - 12/06/2013 4:37 PM CDT Ambulatory Patient Summary [facility] [address] [facility] [place] [id number] Visit Information Name: NOEMÍ LUNA [facility] Number: [id number] Current Date: 12/06/2013 16:37:42 Physicians [...] issues Duncan MENDEZ, Kevin Piper 12/14/2013 17:15 [facility] PT/OT rt shoulder impingment Ade Gandhi Attention: Contact your local Clinic if further appointment detail needed. Your Goals/Additional instructions: Source: [facility] POWERCHART Document Id: [id number] Miscellaneous - John Norman M.D. - 12/06/2013 4:37 PM CDT Ambulatory Discharge Medication List [address] [id number] Visit Information Name: NOEMÍ LUNA [facility] Number: [id number] Visit Date: 12/06/2013 16:37:40 Attending [...] case of emergency. Additional Information: Source: [facility] POWERCHART Document Id: [id number] Miscellaneous - Lacie Donaldson R.N. - 12/06/2013 3:07 PM CDT Adult Train Brake Operator Intake/History Adult Train Brake Operator Intake/History Entered On: 12/06/2013 15:10 CDT Performed On: 12/06/2013 15:07 CDT by LACIE DONALDSON all source analyst Chief Complaint : right shoulder pain that [...] Preferred Communication Mode : Verbal Languages : Costa Rican LACIE DONALDSON RN - 12/06/2013 15:07 CDT [...] DONALDSON RN - 12/06/2013 15:07 CDT Source: [facility] Cloudian Document Id: [id number] CDT!39 documented in this encounter Plan of Treatment Not on filedocumented as of this encounter Visit Diagnoses Not on filedocumented in this encounter Additional Health Concerns Assessment Noted Time PHQ-9 Depression Total Score: 18 02/14/2013 9:53 AM CD T documented as of this encounter
--- OUTSIDE RECORDS SUMMARY | 2022-08-19 10:35 | XMS_ITS | Encounter Summary ---
:1960 Author Organization [facility] Address [address] [place] [address] Care Team Providers Name Role Phone Unavailable Primary Care Provider Unavailable Encounter Details Date Type Department Care Team Description 07/27/2014 Hospital En[facility] Cintia lindquist M.D. [address] [place] [phone] (Wo rk) Social History Tobacco Use [...] 185 cm (6' 0.84) 07/27/2014 1:30 PM AIRWAY TRAFFIC CONTROLLER Body Mass Index - - documented in this encounter Plan of Treatment Not on filedocumented as of this encounter Visit Diagnoses Not on filedocumented in this encounter Additional Health Concerns Assessment Noted Time PHQ-9 Depression Total Score: 18 02/14/2013 9:53 AM CD T documented as of this encounter
--- OUTSIDE RECORDS SUMMARY | 2022-08-19 10:35 | XMS_ITS | Encounter Summary ---
:1960 Author Organization [facility] Address [address] [place] [address] Care Team Providers Name Role Phone Unavailable Primary Care Provider Unavailable Encounter Details Date Type Department Care Team Description 07/13/2014 Hospital Encounter [facility] Tigist Cosme M.D. 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
--- OUTSIDE RECORDS SUMMARY | 2022-08-19 10:35 | XMS_ITS | Encounter Summary ---
:1960 Author Organization [facility] Address [address] [place] [address] Care Team Providers Name Role Phone Unavailable Primary Care Provider Unavailable Encounter Details Date Type Department Care Team Description 01/04/2014 Hospital Encounter [facility]X [facility] Cintia Cobb M.D. [address] [place] [phone] (Wo rk) Social History Tobacco Use [...] General Message Thanks for update. Addendum by ANAC RISTINA FERRELL RN on 03 January 2014 12:25:10 [...] for him to call to reschedule. Source: [facility] POWERCHART Document Id: [id number] Electronically signed by Dayami, [facility] Glass Block Installer [id number] at 02/02/2017 9:41 PM CDT documented in this encounter Plan of Treatment Not on filedocumented as of this encounter Visit Diagnoses Not on filedocumented in this encounter Additional Health Concerns Assessment Noted Time PHQ-9 Depression Total Score: 18 02/14/2013 9:53 AM CD T documented as of this encounter
--- OUTSIDE RECORDS SUMMARY | 2022-08-19 10:35 | XMS_ITS | Encounter Summary ---
:1960 Author Organization [facility] Address [address] [place] [address] Care Team Providers Name Role Phone Unavailable Primary Care Provider Unavailable Encounter Details Date Type Department Care Team Description 09/30/2013 Hospital En[facility] Cintia Aguirre M.D. [address] [place] [phone] (Wo rk) Social History Tobacco Use Types Packs/Day Years Used Date Smoking Tobacco: Never Assessed Sex Assigned at Date Recorded Not on file documented as of this encounter Last Filed Vital Signs Vital Sign Reading Time Taken Comments Blood Pressure 167/85 09/30/2013 12:07 PM HEADING AND PRIMING TOOL SETTER Pulse 56 09/30/2013 12:07 PM HEADING AND PRIMING TOOL SETTER Temperature - - Respiratory Rate 16 09/30/2013 11:38 AM HEADING AND PRIMING TOOL SETTER Oxygen Saturation - - Inhaled Oxygen Concentration - - Weight 153 kg (336 lb 6.8 oz) 09/30/2013 11:38 AM HEADING AND PRIMING TOOL SETTER Height 183 cm (6' 0.05) 09/30/2013 11:38 AM HEADING AND PRIMING TOOL SETTER Body Mass Index 45.57 09/30/2013 11:38 AM HEADING AND PRIMING TOOL SETTER documented in this encounter Progress Notes Cintia Cobb M.D. - 09/30/2013 11:33 AM CST [id number] CHIEF COMPLAINT/REASON FOR VISIT Followup hypertension. HISTORY [...] Victoza and Lantus. He follows with an residential direct support professional in [place] and is also currently going through the [...] due for repeat. He does see an residential direct support professional. At this time we are going to increase his Lantus to 58 units at bedtime and we will continue to monitor. Other lab work is up-to-date. He also requested we refill his test strips. Patient Education Ready to learn No apparent learning barriers were identified Learning preferences include listening Explained diagnosis and treatment plan Patient/Child/Caregiver expressed understanding of the content Cintia Song M.D./[facility] Electronically Signed By: CINTIA KILGORE MD On: 10/04/2013 07:28 AM Source: [facility] MHSDOLBEYNONRADSYS Document Id: [id number] ING AND PRIMING TOOL SETTER documented in this encounter Miscellaneous Notes Miscellaneous - Conversion, Historical Provider Ser - 10/03/2013 2:42 PM HEADING AND PRIMING TOOL SETTER Med Management Document Contains Addenda Addendum by CINTIA KILGORE MD on 04 October 2013 07:10:57 HEADING AND PRIMING TOOL SETTER From: CINTIA KILGORE MD Sent: 10/04/2013 07:10:56 HEADING AND PRIMING TOOL SETTER Subject: RE:Med Management Approved Order:simvastatin (simvastatin 40 mg oral tablet) 1 tab(s) PO Bedtime Qty: 90 tab(s) Refills: 2 Route To Pharmacy [id number] Signed by CINTIA KILGORE MD 10/04/2013 07:10:49 From: OLIVIA BECERRA V To: CINTIA KILGORE MD; OLIVIA BECERRA V; Sent: 10/03/2013 14:42:45 HEADING AND PRIMING TOOL SETTER Subject: Med Management On hold pending signature Order:simvastatin (simvastatin 40 mg oral tablet) 1 tab(s) PO Bedtime Qty: 90 tab(s) Refills: 2 Route To Pharmacy [facility] #[id number] pt had lipid panel done 07/11/13 in [place] .This was last filled 04/08 by provider there Source: [facility] POWERCHART Document Id: [id number] Miscellaneous - Cintia Cobb M.D. - 09/30/2013 12:30 PM HEADING AND PRIMING TOOL SETTER Ambulatory Patient Summary [address] [phone] Visit Information Name: LZA LUAN [facility] Number: [id number] Current Date: 09/30/2013 12:30:51 Physicians [...] Oral, once a day New Routed to [address] [address] docusate-senna (Dok Plus) 2 Tablet(s), Oral, once [...] appointment detail needed. Your Goals/Additional instructions: Source: [facility] POWERCHART Document Id: [id number] ING AND PRIMING TOOL SETTER Miscellaneous - Cintia Cobb M.D. - 09/30/2013 12:30 PM HEADING AND PRIMING TOOL SETTER Ambulatory Depart Summary [facility] [address] [place] [address] Visit Information Name: LAZ LUNA [facility] Number: [id number] Visit Date: 09/30/2013 12:30:45 Attending [...] Oral, once a day New Routed to [address] [address] docusate-senna (Dok Plus) 2 Tablet(s), [...] in case of emergency. Additional Information: Source: [facility] POWERCHART Document Id: [id number] ING AND PRIMING TOOL SETTER Osbaldo - Anoop Mujica L.P.N. - 09/30/2013 12:07 PM CST Ambulatory Vitals Height Weight Ambulatory Vitals Height Weight Entered On: 09/30/2013 12:08 HEADING AND PRIMING TOOL SETTER Performed On: 09/30/2013 12:07 HEADING AND PRIMING TOOL SETTER by ANOOP MUJICA LPN Vitals/Ht/Wt Peripheral Pulse Rate : 56 /min (LOW) Systolic Blood Pressure : 167 mmHg (>HHI) Diastolic Blood Pressure : 85 mmHg (Comment: Daniel B/P Average [ANOOP MUJICA LPN - 09/30/2013 12:07 HEADING AND PRIMING TOOL SETTER] ) NIBP Mean : 112 mmHg ANOOP MUJICA LPN - 09/30/2013 12:07 HEADING AND PRIMING TOOL SETTER Source: [facility] Digital Tech FrontierCHART Document Id: [id number] HEADING AND PRIMING TOOL SETTER!6 ING AND PRIMING TOOL SETTER Osbaldo - Anoop Mujica LPiliP.N. - 09/30/2013 11:38 AM CST Adult Computer Language Coder Intake/History Adult Computer Language Coder Intake/History Entered On: 09/30/2013 11:44 HEADING AND PRIMING TOOL SETTER Performed On: 09/30/2013 11:38 HEADING AND PRIMING TOOL SETTER by MUJICA, ANOOP R CROWN AND BRIDGE TECHNICIAN Intake Chief Complaint : Recheck couple of [...] kg/m2 ANOOP MUJICA LPN - 09/30/2013 11:38 HEADING AND PRIMING TOOL SETTER General Info Information Given By : Patient Preferred Communication Mode : Verbal Languages : East Timorese ANOOP MUJICA LPN - 09/30/2013 11:38 HEADING AND PRIMING TOOL SETTER Subjective Pain Symptoms : No ANOOP MUJICA LPN - 09/30/2013 11:38 HEADING AND PRIMING TOOL SETTER Dependent Habits Tobacco Use/Currently Using : No Smoking Status : Never smoker ANOOP MUJICA LPN - 09/30/2013 11:38 HEADING AND PRIMING TOOL SETTER Tobacco Use Grid Last Use : never ANOOP MUJICA LPN 09/30/2013 11:38 HEADING AND PRIMING TOOL SETTER Caffeine Use Grid Caffeine Use : Current Type : Coffee, Soft drinks Frequency : Weekly Amount : soda- weekly; coffee- 1x/week ANOOP MUJICA LPN - 09/30/2013 11:38 HEADING AND PRIMING TOOL SETTER Recreational Drug Use Grid Drug Use : None ANOOP MUJICA LPN 09/30/2013 11:38 HEADING AND PRIMING TOOL SETTER Source: [facility] POWERCHART Document Id: [id number] HEADING AND PRIMING TOOL SETTER!39 ING AND PRIMING TOOL SETTER documented in this encounter Plan of Treatment Not on filedocumented as of this encounter Visit Diagnoses Not on filedocumented in this encounter Additional Health Concerns Assessment Noted Time PHQ-9 Depression Total Score: 18 02/14/2013 9:53 AM CD T documented as of this encounter
--- OUTSIDE RECORDS SUMMARY | 2022-08-19 10:35 | XMS_ITS | Encounter Summary ---
:1960 Author Organization [facility] Address [address] [place] [address] Care Team Providers Name Role Phone Unavailable Primary Care Provider Unavailable Encounter Details Date Type Department Care Team Description 05/10/2014 Hospital Encounter [facility] [address] [place] [phone] (Wo rk) Social History Tobacco Use [...] is also a type of insulin Source: [employer] Document Id: [id number] Miscellaneous - Conversion, Historical Provider Ser - [...] BECERRA V - 05/10/2014 12:01 CDT Source: [employer] Document Id: [id number] CDT!11 documented in this encounter Plan of Treatment Not on filedocumented as of this encounter Visit Diagnoses Not on filedocumented in this encounter Additional Health Concerns Assessment Noted Time PHQ-9 Depression Total Score: 18 02/14/2013 9:53 AM CD T documented as of this encounter
--- OUTSIDE RECORDS SUMMARY | 2022-08-19 10:35 | XMS_ITS | Encounter Summary ---
:1960 Author Organization [facility] Address [address] [place] [address] Care Team Providers Name Role Phone Unavailable Primary Care Provider Unavailable Encounter Details Date Type Department Care Team Description 03/14/2014 Hospital Encounter [facility] Juan Sears, P. A.-C. Social History [...]
--- OUTSIDE RECORDS SUMMARY | 2022-08-19 10:35 | XMS_ITS | Encounter Summary ---
:1960 Author Organization [facility] Address [address] [place] [address] Care Team Providers Name Role Phone Unavailable [...] Suzi Hill - 02/07/2014 3:05 PM CDT [id number] Mr. Luna is a pleasant 53-year-old gentleman [...] have good motion both actively and passively. Nicollet's test is equivocal. He does have painwhen [...] half that time was spent in direct [id number] counseling and educating the patient about his condition as well as treatment options that are available to him. Suzi Hill P.A.-C./caron Electronically Signed By: SUZI HILL PA-C On: 02/14/2014 02:48 PM Source: [facility] MHSDOLBEYNONRADSYS Document Id: [id number] documented in this encounter Miscellaneous Notes Miscellaneous - Suzi Hill - 02/07/2014 3:31 PM CDT Ambulatory Patient Summary [facility] [address] [phone] Visit Information Name: LAZ LUNA [facility] Number: [id number] Current Date: 02/07/2014 15:31:20 Physicians [...] appointment detail needed. Your Goals/Additional instructions: Source: [facility] POWERCHART Document Id: [id number] Miscellaneous - Suzi Hill - 02/07/2014 3:31 PM CDT Ambulatory Discharge Medication List [facility] [address] [place], [place] [phone] Visit Information Name: LAZ LUNA [facility] Number: [id number] Visit Date: 02/07/2014 15:31:18 Attending [...] PA-C Signed On:07-FEB-2014 15:31:09 Additional Information: Source: [facility] POWERCHART Document Id: [id number] Miscellaneous - Lacie Donaldson R.N. - 02/07/2014 3:09 PM CDT Adult Machine Packer Intake/History Adult Machine Packer Intake/History Entered On: 02/07/2014 15:13 CDT Performed On: 02/07/2014 15:09 CDT by LACIE DONALDSON laboratory chemical assistant Chief Complaint : f/u right shoulder pain, [...] Preferred Communication Mode : Verbal Languages : [place] Verdean LACIE DONALDSON RN - 02/07/2014 15:09 CDT [...] DONALDSON RN - 02/07/2014 15:09 CDT Source: [employer] Document Id: [id number] CDT!39 documented in this encounter Plan of Treatment Not on filedocumented as of this encounter Visit Diagnoses Not on filedocumented in this encounter Additional Health Concerns Assessment Noted Time PHQ-9 Depression Total Score: 18 02/14/2013 9:53 AM CD T documented as of this encounter
--- OUTSIDE RECORDS SUMMARY | 2022-08-19 10:35 | XMS_ITS | Encounter Summary ---
:1960 Author Organization [facility] Address [address] [place] [address] Care Team Providers Name Role Phone Unavailable Primary Care Provider Unavailable Encounter Details Date Type Department Care Team Description 11/25/2013 Hospital Encounter HX [facility] Cintia lindquist M.D. [address] [place] [phone] (Wo rk) Social History Tobacco Use [...] cap(s) Refills: 3 Route To Pharmacy - [facility][id number] Signed by CINTIA KILGORE MD 11/29/2013 14:42:55 From: SHIRLENE ABBOTT RN To: CINTIA KILGORE MD; SHIRLENE ABBOTT RN; Sent: 11/28/2013 16:13:30 CDT Subject: Med Management On hold pending signature Order:omeprazole (omeprazole 20 mg oral delayed release capsule) 1 cap(s) PO Daily Qty: 90 cap(s) Refills: 3 Route To Pharmacy - [facility][id number] We have not prescribed this in the past, but it is noted on med list. Prescribed by Cindy Moy CNP. Add dx to list to make it refillable per protocol if you'd like. Source: [employer] Document Id: [id number] Miscellaneous - Tiffany Owens, L.P.N. - 11/25/2013 [...] that his insurance is not covering. Although [facility] pharm. had callled and shared he had a couple of rxs to be picked up.Thank you. co Source: [employer] Document Id: [id number] documented in this encounter Plan of Treatment Not on filedocumented as of this encounter Visit Diagnoses Not on filedocumented in this encounter Additional Health Concerns Assessment Noted Time PHQ-9 Depression Total Score: 18 02/14/2013 9:53 AM CD T documented as of this encounter
--- OUTSIDE RECORDS SUMMARY | 2022-08-19 10:35 | XMS_ITS | Encounter Summary ---
:1960 Author Organization [facility] Address [address] [place] [address] Care Team Providers Name Role Phone Unavailable Primary Care Provider Unavailable Encounter Details Date Type Department Care Team Description 12/07/2013 Hospital Encounter [facility]X [facility] [place] Cintia Aguirre M.D. [address] [place] [phone] (Wo rk) Social History Tobacco Use [...] Cobb M.D. - 12/07/2013 4:34 PM CDT [id number] CHIEF COMPLAINT/REASON FOR VISIT Followup blood pressure. [...] KILGORE MD On: 12/20/2013 09:48 PM Source: [facility] MHSDOLBEYNONRADSYS Document Id: [id number] documented in this encounter Miscellaneous Notes Miscellaneous [...] LPN, RT - 12/07/2013 17:36 CDT Source: [facility] POWERCHART Document Id: [id number] CDT!7 Miscellaneous - Cintia Cobb M.D. - 12/07/2013 5:28 PM CDT Ambulatory Patient Summary [id number] [place], [place] [phone] Visit Information Name: LAZ LUNA [facility] Number: [id number] Current Date: 12/07/2013 17:28:39 [...] Oral, once a day New Routed to [address] [address] docusate-senna (Dok Plus) 2 Tablet(s), Oral, once a day furosemide (Lasix 20 mg oral tablet) 1 Tablet(s), Oral, once a day New Routed to [address] [address] hydrochlorothiazide (hydrochlorothiazide 25 mg oral [...] appointment detail needed. Your Goals/Additional instructions: Source: [facility] POWERCHART Document Id: [id number] Miscellaneous - Cintia Cobb M.D. - 12/07/2013 5:28 PM CDT Ambulatory Discharge Medication List [facility] [address] [facility] [place] [phone] Visit Information Name: LAZ LUNA [facility] Number: [id number] Visit Date: 12/07/2013 17:28:37 [...] Oral, once a day New Routed to [address] [address] docusate-senna (Dok Plus) 2 Tablet(s), Oral, once a day furosemide (Lasix 20 mg oral tablet) 1 Tablet(s), Oral, once a day New Routed to [address] [address] hydrochlorothiazide (hydrochlorothiazide 25 mg oral [...] in case of emergency. Additional Information: [facility] Document Id: [id number] Miscellaneous - Anne Marie Tuttle, L.P.N. - [...] LPN, RT - 12/07/2013 16:51 CDT Source: [facility] POWERCHART Document Id: [id number] CDT!7 Miscellaneous - Anne Marie Tuttle L.P.N. - 12/07/2013 4:39 PM CDT Adult Baggagemaster Intake/History Adult Baggagemaster Intake/History Entered On: 12/07/2013 16:42 CDT Performed [...] Preferred Communication Mode : Verbal Languages : Com[place]an ANNE MARIE TUTTLE LPN, RT - 12/07/2013 [...] MARIE TUTTLE LPN, 12/07/2013 16:39 CDT Source: [employer] Document Id: [id number] CDT!41 Miscellaneous - Conversion, Historical Provider Ser - 11/28/2013 1:13 PM CDT Med Management Document Contains Addenda Addendum by CINTIA KILGORE MD on 28 November 2013 14:12:59 CDT From: CINTIA KILGORE MD Sent: 11/28/2013 14:12:58 CDT Subject: RE:Med Management Approved Order:allopurinol (allopurinol 300 mg oral tablet) 1 tab(s) PO Daily Qty: 90 tab(s) Duration: 90 day(s) Refills: 3 Substitutions Allowed Route To [facility][id number] Signed by CINTIA KILGORE MD 11/28/2013 14:12:53 From: OLIVIA BECERRA V To: CINTIA KILGORE MD; OLIVIA BECERRA V; Sent: 11/28/2013 13:13:19 CDT Subject: Med Management On hold pending signature Order:allopurinol (allopurinol 300 mg oral tablet) 1 tab(s) PO Daily Qty: 90 tab(s) Duration: 90 day(s) Refills: 3 Substitutions Allowed Route To [facility][id number] Source: [facility] POWERCHART Document Id: [id number] documented in this encounter Plan of Treatment Not on filedocumented as of this encounter Visit Diagnoses Not on filedocumented in this encounter Additional Health Concerns Assessment Noted Time PHQ-9 Depression Total Score: 18 02/14/2013 9:53 AM CD T documented as of this encounter
--- OUTSIDE RECORDS SUMMARY | 2022-08-19 10:35 | XMS_ITS | Encounter Summary ---
:1960 Author Organization [facility] Address [address] [place] [address] Care Team Providers Name Role Phone Unavailable Primary Care Provider Unavailable Encounter Details Date Type Department Care Team Description 10/18/2013 Hospital Encounter [facility]X [facility] Cintia Aguirre M.D. [address] [place] [phone] (Wo rk) Social History Tobacco Use Types Packs/Day Years Used Date Smoking Tobacco: Never Assessed Sex Assigned at Date Recorded Not on file documented as of this encounter Miscellaneous Notes Miscellaneous - Cintia Cobb M.D. - 10/18/2013 3:37 PM [employer] US results Document Contains Addenda Addendum by JOSIE CASTANEDA LPN, RT on 20 October 2013 15:48:07 [employer] Message left with to have patient call clinic. DL Addendum by JOSIE CASTANEDA LPN, RT on 19 October 2013 12:04:01 [employer] no answer/no machine. DL From: CINTIA KILGORE MD To: JOSIE CASTANEDA LPN RT; Sent: 10/18/2013 15:37:21 [employer] Subject: US results Please let Ed know that his kidney ultrasound looked okay. They did not see any narrowing of his arteries. We will follow up on his BP as discussed. Thanks, Cintia Source: [facility] POWERCHART Document Id: [id number] documented in this encounter Plan of Treatment Not on filedocumented as of this encounter Visit Diagnoses Not on filedocumented in this encounter Additional Health Concerns Assessment Noted Time PHQ-9 Depression Total Score: 18 02/14/2013 9:53 AM CD T documented as of this encounter
--- OUTSIDE RECORDS SUMMARY | 2022-08-19 10:35 | XMS_ITS | Encounter Summary ---
:1960 Author Organization [facility] Address [address] [place] [address] Care Team Providers Name Role Phone Unavailable Primary Care Provider Unavailable Encounter Details Date Type Department Care Team Description 07/13/2014 Hospital Encounter HX [facility] ED Pratik Aguila M.D. [address] [place] [phone] (Wo rk) Social History Tobacco Use Types Packs/Day Years Used Date Smoking Tobacco: Never Assessed Sex Assigned at Date Recorded Not on file documented as of this encounter Last Filed Vital Signs Vital Sign Reading Time Taken Comments Blood Pressure 137/79 07/13/2014 12:07 PM UTILITY MANAGER Pulse 45 07/13/2014 12:07 PM UTILITY MANAGER Temperature - - Respiratory Rate 18 07/13/2014 12:07 PM UTILITY MANAGER Oxygen Saturation - - Inhaled Oxygen Concentration - - Weight - - Height 185 cm (6' 0.84) 07/13/2014 12:07 PM UTILITY MANAGER Body Mass Index - - documented in this encounter Discharge Summaries Geneva Woodson R.N. - 07/13/2014 12:58 PM CST ED Discharge Instructions [address] [id number] Name: JEREMYNOEMÍ Date of : 1960 12:00 AM Visit Date: 07/13/2014 11:26 AM [facility] Number: [id number] Address: [address] [place] [phone] Primary Care Provider: KEVIN KILGORE MD IMPORTANT: [facility] in [place] would like to thank you for allowing us to assist you with your healthcare needs. The following includes patient education materials and informationregarding your injury/illness. Diagnosis: Sprain Shoulder Active L; Tendonitis Elbow Follow-Up Instructions: With: Address: When: KEVIN KILGORE [address] [place] [phone] Business (1) Within As Needed Comments: If symptoms worsen Your Upcoming Appointments: Date Time Location Provider 08/09/2014 18:00 [facility] Kevin Song MD Patient Education Materials: [id number] TENDONITIS A tendon is the thick fibrous [...] as directed by your healthcare provider ?? [facility], [address] [place] [address]. All rights reserved. This information is not intended as a substitute for professional medical care. Always follow your healthcare professional's instructions. [id number] SHOULDER SPRAIN A sprain is a stretching [...] of the shoulder or upper arm ?? [facility], [address] [place] [address]. All rights reserved. This information is not intended as a substitute for professional medical care. Always follow your healthcare professional's instructions. [id number] MUSCLE STRAIN,EXTREMITY A MUSCLE STRAIN is a [...] tingly -- Pain or swelling increases ?? [phone] [facility], [address] [place] [address]. All rights reserved. This information is not [...] a responsible green party. I, LUNA, ED , or responsible green party have received [...] home with a responsible green party. I, JEREMY, NOEMÍ , or responsible green party have received this information and my questions have been answered. I have discussed any challenges I see with this plan with the nurse or physician. Patient Signature or Responsible Alliance Party/Relationship Date Time Provider Signature Date Time Source: [employer] POWERCHART Document Id: [id number] ITY MANAGER Geneva Woodson R.N. - 07/13/2014 12:58 PM CST ED Depart Summary [facility] Clinical Discharge Summary PERSON INFORMATION Name NOEMÍ LUNA Age 54 Years 1960 12:00 AM Sex Male Language Norwegian PCP KEVIN KILGORE MD Marital Status N [id number] Visit Id Visit Reason Arm pain-swelling; Arm pain-swelling; Left Arm Hurts Specialty Enc Type Emergency Med Service Emergency Medicine Referred by Track Group [facility] ED Discharge 07/13/2014 12:58 PM Tracking Id [id number] Checkout 07/13/2014 12:58 PM Checkin 07/13/2014 11:26 AM Acuity 4 -Less Urgent Dispo Type * Discharged to Home or Self Care Arrival 07/13/2014 11:26 AM Reg Status Complete LOS 000 01:32 Address: [address] [place] [phone] Comment: PROVIDER INFORMATION Provider Role Provider Contact Time SABRA AGUILA MD ED Provider 07/13/14 11:33 MANAN RAMÍREZ AMMONIA OPERATOR Nurse 07/13/14 12:09 DIAGNOSIS Sprain Shoulder Active L; Tendonitis Elbow Comment: PATIENT EDUCATION INFORMATION Instructions: TENDONITIS; SPRAIN SHOULDER; MUSCLE STRAIN, Extremity Follow up: With: Address: When: KEVIN KILGORE [address] [place] [phone] Business (1) Within As Needed Comments: If symptoms worsen Source: [facility] POWERCHART Document Id: [id number] ITY MANAGER documented in this encounter ED Notes Geneva Woodson R.N. - 07/13/2014 12:56 PM CST ED Pain Assessment ED Pain Assessment Entered On: 07/13/2014 12:56 UTILITY MANAGER Performed On: 07/13/2014 12:56 UTILITY MANAGER by GENEVA WOODSON RN Pain Assessment Pain Symptoms : Yes Pain Medication Requested : No GENEVA WOODSON RN - 07/13/2014 12:56 UTILITY MANAGER Source: [employer] Document Id: [id number] UTILITY MANAGER!4 ITY MANAGER Geneva Woodson R.N. - 07/13/2014 12:55 PM CST ED Disposition Summary ED Disposition Summary Entered On: 07/13/2014 12:56 UTILITY MANAGER Performed On: 07/13/2014 12:55 UTILITY MANAGER by GENEVA WOODSON RN ED Disposition Summary Accompanied By : Alone Mode of Discharge : Ambulatory Transportation : Private vehicle Printed Discharge Instructions Given to Patient : Yes Patient Status at Discharge from ED : Improved GENEVA WOODSON RN - 07/13/2014 12:55 UTILITY MANAGER Source: [employer] Document Id: [id number] UTILITY MANAGER!7 ITY MANAGER Sabra Aguila M.D. - 07/13/2014 12:44 PM [...] Note : Chief Complaint Description 07/13/2014 11:58 UTILITY MANAGER Chief Complaint Description 54 year old male [...] on 09/29/2012 at 52 years. Comments: 09/30/2012 UTILITY MANAGER 15:06 STEVE COUCH CNP left Genital warts (ICD-9-CM 078.19) Comments: 09/30/2013 UTILITY MANAGER 11:47 [facility] onset unknown Tinea pedis* (ICD-9-CM 110.4) Comments: 09/30/2013 UTILITY MANAGER 11:47 [facility] onset unknown Tinea cruris. (ICD-9-CM 110.3) Comments: 09/30/2013 UTILITY MANAGER 11:47 [facility] onset unknown. Surgical history: Cystoscopy ([id number]) on 12/26/2009 at 49 Years. Comments: 02/20/2010 08:36 - STEVE ANDREA CNP [facility] / normal PSA, TOTAL SCREENING (G0103) on 12/26/2009 at 49 Years. Comments: 02/20/2010 08:38 - STEVE ANDREA CNP Done at [facility] / Result: 1.55 Discectomy ([id number]) on 02/19/1989 at 28 Years. Comments: 12/28/2009 09:38 - MYROM, STEVE J FINANCIAL ACCOUNTING MANAGER lumbar L4-L5. Family history: Hypertension Father Congestive [...] Examination Vital Signs: Vital Signs 07/13/2014 12:07 UTILITY MANAGER Temperature Core 37.2 DegC Peripheral Pulse Rate 45 /min <LLOW Respiratory Rate 18 /min SpO2 93 % LOW Systolic Blood Pressure 137 mmHg Diastolic Blood Pressure 79 mmHg BP Location Left upper 07/13/2014 9:15 UTILITY MANAGER Peripheral Pulse Rate 46 /min <LLOW Systolic Blood Pressure 156 mmHg HI Diastolic Blood Pressure 78 mmHg Mean Arterial Pressure 104 mmHg , Measurements 07/13/2014 12:07 UTILITY MANAGER Height 185 cm 07/13/2014 10:24 UTILITY MANAGER Height 185 cm 07/13/2014 9:15 UTILITY MANAGER Height 185 cm 07/13/2014 9:09 UTILITY MANAGER Height 185 cm , oxygen saturation. General: [...] from flowsheet : Vital Signs 07/13/2014 12:07 UTILITY MANAGER Temperature Core 37.2 DegC Peripheral Pulse Rate 45 /min <LLOW Respiratory Rate 18 /min SpO2 93 % LOW Systolic Blood Pressure 137 mmHg Diastolic Blood Pressure 79 mmHg BP Location Left upper 07/13/2014 9:15 UTILITY MANAGER Peripheral Pulse Rate 46 /min <LLOW Systolic [...] AGUILA MD On: 07/14/2014 10:08 AM Source: [facility] POWERCHART Document Id: [id number]} ITY MANAGER Manan Ramírez R.N. - 07/13/2014 12:03 PM CST ED Primary Assessment Document Has Been Updated ED Primary Assessment Entered On: 07/13/2014 12:05 UTILITY MANAGER Performed On: 07/13/2014 12:03 UTILITY MANAGER by MANAN RAMÍREZ RN Reason For Visit (As Of: 07/13/2014 12:05:33 UTILITY MANAGER) Problems(Active) BPH without urinary obstruction (ICD-9-CM :600.00 ) Name of Problem: BPH without urinary obstruction; Recorder: STEVE ANDREA CNP; Confirmation: Confirmed ; Classification: Medical ; Code: 600.00 ; Contributor System: [employer] ; Last Updated: 02/15/2010 10:00 CDT ; [...] System: PowerChart ; Last Updated: 07/24/2011 10:45 UTILITY MANAGER ; Life Cycle Date: 12/05/2010 ; [...] Medical ; Code: 813.05 ; Contributor System: [employer] ; Last Updated: 09/30/2012 15:06 UTILITY MANAGER ; Life Cycle Date: 09/30/2012 ; [...] Code: 695.89 ; Last Updated: 07/14/2012 14:36 UTILITY MANAGER ; Life Cycle Status: Active ; [...] Medical ; Code: 278.00 ; Contributor System: [employer] ; Last Updated: 09/05/2010 9:56 UTILITY MANAGER ; Life Cycle Date: 09/05/2010 ; [...] ICD-9-CM ; Comments: 09/30/2013 11:[facility] onset unknown Ulcer of skin NOS (ICD-9-CM :707.9 ) Name of Problem: Ulcer of skin NOS ; Recorder: HALEIGH SCHULTZ CNP; Confirmation: Confirmed ; Classification: UPDATE NEEDED ; Code: 707.9 ; Contributor System: PowerChart ; Last Updated: 09/18/2010 8:25 UTILITY MANAGER ; Life Cycle Date: 09/18/2010 ; Life Cycle Status: Active ; Responsible Provider: HALEIGH SCHULTZ CNP; Vocabulary: ICD-9-CM ; Comments: 09/30/2013 11:[facility] onset unknown Unspecified Adjustment Reaction (ICD-9-CM :309.9 [...] PNED ; Probability: 0 ; Diagnosis Code: [id number] Triage Mode of Arrival ED : Private vehicle Track : Medical Languages : Norwegian Treatments Prior to Arrival : Home treatments Is Patient Female and 13-50 no hysterectomy : No MANAN RAMÍREZ RN - 07/13/2014 12:03 UTILITY MANAGER Pain Assessment Pain Symptoms : Yes MANAN RAMÍREZ RN - 07/13/2014 12:03 UTILITY MANAGER ID Screen Drug Resistant Organism : No Travel Within Last 21 Days : No MANAN RAMÍREZ RN - 07/13/2014 12:03 UTILITY MANAGER Respiratory Airway : Patent Respirations : Unlabored Respiratory Pattern : Regular MANAN RAMÍREZ RN - 07/13/2014 12:03 UTILITY MANAGER Cardiovascular Skin Color : Normal for ethnicity Skin Description : Dry Skin Temperature : Warm MANAN RAMÍREZ RN - 07/13/2014 12:03 UTILITY MANAGER Neurological Last Well Time Known : Not applicable Level of Consciousness : Alert Orientation : Oriented x 3 Characteristics of Speech : Appropriate for age MANAN RAMÍREZ RN - 07/13/2014 12:03 UTILITY MANAGER ED Psychosocial Affect/Behavior : Calm, Cooperative, Appropriate Domestic Abuse Concerns : None MANAN RAMÍREZ RN - 07/13/2014 12:03 UTILITY MANAGER Gastrointestinal Nutrition ED : Adequate MANAN RAMÍREZ RN - 07/13/2014 12:03 UTILITY MANAGER Musculoskeletal Fall Prevention Education Provided : NA MANAN RAMÍREZ RN - 07/13/2014 12:03 UTILITY MANAGER Social Habits Tobacco Use/Currently Using : No Smoking Status : Never smoker MANAN RAMÍREZ RN - 07/13/2014 12:03 UTILITY MANAGER Tobacco Use Grid Last Use : never MANAN RAMÍREZ RN - 07/13/2014 12:03 UTILITY MANAGER Alcohol Use Grid Alcohol Use : No MANAN RAMÍREZ RN - 07/13/2014 12:03 UTILITY MANAGER Recreational Drug Use Grid Drug Use : None MANAN RAMÍREZ RN - 07/13/2014 12:03 UTILITY MANAGER Source: [facility] POWERCHART Document Id: [id number] UTILITY MANAGER!44 ITY MANAGER Manan Ramírez R.N. - 07/13/2014 11:58 AM CST ED Triage Assessment Document Has Been Updated ED Triage Assessment Entered On: 07/13/2014 12:03 UTILITY MANAGER Performed On: 07/13/2014 11:58 UTILITY MANAGER by MANAN RAMÍREZ RN Reason For Visit (As Of: 07/13/2014 12:03:04 UTILITY MANAGER) Problems(Active) BPH without urinary obstruction (ICD-9-CM :600.00 ) Name of Problem: BPH without urinary obstruction; Recorder: STEVE ANDREA CNP; Confirmation: Confirmed ; Classification: Medical ; Code: 600.00 ; Contributor System: [employer] ; Last Updated: 02/15/2010 10:00 CDT ; [...] System: PowerChart ; Last Updated: 07/24/2011 10:45 UTILITY MANAGER ; Life Cycle Date: 12/05/2010 ; [...] Medical ; Code: 607.84 ; Contributor System: [employer] ; Last Updated: 12/28/2009 9:40 CDT ; [...] System: PowerChart ; Last Updated: 09/30/2012 15:06 UTILITY MANAGER ; Life Cycle Date: 09/30/2012 ; [...] Code: 695.89 ; Last Updated: 07/14/2012 14:36 UTILITY MANAGER ; Life Cycle Status: Active ; [...] Medical ; Code: 278.00 ; Contributor System: [employer] ; Last Updated: 09/05/2010 9:56 UTILITY MANAGER ; Life Cycle Date: 09/05/2010 ; [...] ICD-9-CM ; Comments: 09/30/2013 11:[facility] onset unknown Ulcer of skin NOS (ICD-9-CM :707.9 ) Name of Problem: Ulcer of skin NOS ; Recorder: HALEIGH SCHULTZ CNP; Confirmation: Confirmed ; Classification: UPDATE NEEDED ; Code: 707.9 ; Contributor System: PowerChart ; Last Updated: 09/18/2010 8:25 UTILITY MANAGER ; Life Cycle Date: 09/18/2010 ; Life Cycle Status: Active ; Responsible Provider: HALEIGH SCHULTZ CNP; Vocabulary: ICD-9-CM ; Comments: 09/30/2013 11:[facility] onset unknown Unspecified Adjustment Reaction (ICD-9-CM :309.9 [...] Medical ; Code: 788.31 ; Contributor System: [employer] ; Last Updated: 02/20/2010 8:39 CDT ; Life Cycle Date: 02/20/2010 ; Life Cycle Status: Active ; Responsible Provider: STEVE ANDREA CNP; Vocabulary: ICD-9-CM ; Comments: 09/30/2013 11:46 - [facility] onset unknown Diagnoses(Active) Arm pain-swelling Date: 07/13/2014 ; Diagnosis Type: Reason For Visit ; Confirmation: Complaint of ;Clinical Dx: Arm pain-swelling ; Classification: Medical ; Clinical Service: Non-Specified ; Code: PNED ; Probability: 0 ; Diagnosis Code: [id number] Triage Chief Complaint Description : 54 year old male presents to ER with left arm pain Mode of Arrival ED : Private vehicle Track : Medical Languages : Norwegian Treatments Prior to Arrival : Home treatments Is Patient Female and 13-50 no hysterectomy : No MANAN RAMÍREZ RN - 07/13/2014 11:58 UTILITY MANAGER Pain Assessment Pain Symptoms : Yes MANAN RAMÍREZ RN - 07/13/2014 11:58 UTILITY MANAGER Pain Pain Assessment Grid Pain 1 Location : Upper arm Intensity : 0 MANAN RAMÍREZ RN - 07/13/2014 11:58 UTILITY MANAGER ED Physician Notification Time ED Physician Notification Time : 07/13/2014 12:02 UTILITY MANAGER MANAN RAMÍREZ RN - 07/13/2014 11:58 UTILITY MANAGER ERIN DCP GENERIC CODE Tracking Acuity : 4 -Less Urgent Tracking Group : [facility] ED MANAN RAMÍREZ RN - 07/13/2014 11:58 UTILITY MANAGER Allergy (As Of: 07/13/2014 12:03:04 UTILITY MANAGER) Allergies (Active) Cipro Estimated Onset Date: Unspecified ; Created By: STEVE ANDREA CNP; Reaction Status: Active ;Category: Drug ; Substance: Cipro ; Type: Allergy ; Updated By: TSEVE ANDREA CNP; Reviewed Date: 07/13/2014 12:02 UTILITY MANAGER Influenza Virus Vaccine Estimated Onset Date: Unspecified ; Reactions: diarrhea ; Created By: STEVE ANDREA CNP; Reaction Status: Active ; Category: Drug ; Substance: Influenza Virus Vaccine ; Type: Intolerance ; Updated By: STEVE ANDREA CNP; Reviewed Date: 07/13/2014 12:02 UTILITY MANAGER ID Screen Drug Resistant Organism : No Travel Within Last 21 Days : No MANAN RAMÍREZ RN - 07/13/2014 11:58 UTILITY MANAGER Immunizations Immunizations Current : Unknown Influenza : None MANAN RAMÍREZ RN - 07/13/2014 11:58 UTILITY MANAGER Source: [facility] [employer] Document Id: [id number] UTILITY MANAGER!27 ITY MANAGER documented in this encounter Miscellaneous Notes Miscellaneous - Geneva Woodson R.N. - 07/13/2014 12:56 PM CST Valuables/Belongings Valuables/Belongings Entered On: 07/13/2014 12:56 UTILITY MANAGER Performed On: 07/13/2014 12:56 UTILITY MANAGER by GENEVA WOODSON RN Valuables/Belongingglendy Home Medication Disposition : None brought in with patient GENEVA WOODSON RN - 07/13/2014 12:56 UTILITY MANAGER Source: [facility] [employer] Document Id: [id number] UTILITY MANAGER!3 ITY MANAGER Miscellaneous - Geneva Woodson R.N. - 07/13/2014 11:26 AM CST Facility Charge Ticket 2.0 11.0 DX Facility Charge Ticket 2.0 11.0 DX Entered On: 07/13/2014 12:57 UTILITY MANAGER Performed On: 07/13/2014 11:26 UTILITY MANAGER by GENEVA WOODSON RN Facility Charge Ticket [...] Control : 5 Lynx Visit Level : 73683 Level 3 Treatments Prior to Arrival : Home treatments GENEVA WOODSON RN - 07/13/2014 12:56 UTILITY MANAGER [facility]: [facility] POWERCHART Document Id: [id number] UTILITY MANAGER!17 ITY MANAGER documented in this encounter Plan of Treatment Not on filedocumented as of this encounter Visit Diagnoses Not on filedocumented in this encounter Additional Health Concerns Assessment Noted Time PHQ-9 Depression Total Score: 18 02/14/2013 9:53 AM CD T documented as of this encounter
--- OUTSIDE RECORDS SUMMARY | 2022-08-19 10:35 | XMS_ITS | Encounter Summary ---
:1960 Author Organization [facility] Address [address] [place] [address] Care Team Providers Name Role Phone Unavailable Primary Care Provider Unavailable Encounter Details Date Type Department Care Team Description 07/13/2014 Hospital Encounter HX [facility] Liam Gutierrez M.D. [address] [place] [phone] (Wo rk) Social History Tobacco Use Types Packs/Day Years Used Date Smoking Tobacco: Never Assessed Sex Assigned at Date Recorded Not on file documented as of this encounter Last Filed Vital Signs Vital Sign Reading Time Taken Comments Blood Pressure 156/78 07/13/2014 9:15 AM DETACKER Pulse 46 07/13/2014 9:15 AM DETACKER Temperature - - Respiratory Rate - - Oxygen Saturation - - Inhaled Oxygen Concentration - - Weight - - Height 185 cm (6' 0.84) 07/13/2014 9:15 AM DETACKER Body Mass Index - - documented in this encounter Consult Notes Amol Gutierrez M.D. - 07/13/2014 9:08 AM CST [facility] REFERRAL SOURCE Referral is from Dr. Duncan [...] GUTIERREZ MD On: 07/13/2014 01:28 PM Source: [facility] MHSDOLBEYNON[employer]SYS Document Id: [id number] CKER documented in this encounter Miscellaneous Notes Miscellaneous - Mehreen Washington, RPiliN. - 07/13/2014 9:15 AM CST Adult Property Consultant Intake/History Document Has Been Updated Adult Property Consultant Intake/History Entered On: 07/13/2014 9:17 DETACKER Performed On: 07/13/2014 9:15 DETACKER by MEHREEN WASHINGTON sawmill relief worker Chief Complaint : Lowewr extremity edema and HTN Peripheral Pulse Rate : 46 /min (<LLOW) Systolic Blood Pressure : 156 mmHg (HI) Diastolic Blood Pressure : 78 mmHg NIBP Mean : 104 mmHg Height : 185 cm(Converted to: 6 ft 1 inch(es), 73 inch(es)) MEHREEN WASHINGTON RN - 07/13/2014 9:15 DETACKER General Info Information Given By : Patient Languages : Wolof Is Patient Female and 13-50 no hysterectomy : No MEHREEN WASHINGTON RN - 07/13/2014 9:15 DETACKER Subjective Pain Symptoms : No Cardiovascular Symptoms : Edema MEHREEN WASHINGTON RN - 07/13/2014 9:15 DETACKER Dependent Habits Tobacco Use/Currently Using : No Smoking Status : Never smoker MEHREEN WASHINGTON RN - 07/13/2014 9:15 DETACKER Tobacco Use Grid Last Use : never MEHREEN WASHINGTON RN - 07/13/2014 9:15 DETACKER Alcohol Use : No MEHREEN WASHINGTON RN - 07/13/2014 9:15 DETACKER Caffeine Use Grid Caffeine Use : Current Type : Coffee, Soft drinks Frequency : Weekly Amount : soda- weekly; coffee- 1x/week MEHREEN WASHINGTON RN - 07/13/2014 9:15 DETACKER Recreational Drug Use Grid Drug Use : None MEHREEN WASHINGTON RN - 07/13/2014 9:15 DETACKER Allergy (As Of: 07/13/2014 09:17:25 DETACKER) Allergies (Active) Cipro Estimated Onset Date: Unspecified [...] : MEHREEN Engle RN - 07/13/2014 9:15 DETACKER [facility] Document Id: [id number] DETACKER!34 CKER documented in this encounter Plan of Treatment Not on filedocumented as of this encounter Visit Diagnoses Not on filedocumented in this encounter Additional Health Concerns Assessment Noted Time PHQ-9 Depression Total Score: 18 02/14/2013 9:53 AM CD T documented as of this encounter
--- OUTSIDE RECORDS SUMMARY | 2022-08-19 10:35 | XMS_ITS | Encounter Summary ---
:1960 Author Organization [facility] Address [address] [place] [address] Care Team Providers Name Role Phone Unavailable Primary Care Provider Unavailable Encounter Details Date Type Department Care Team Description 11/18/2013 Hospital Encounter HX [facility] Cintia lindquist M.D. [address] [place] [phone] (Wo rk) Social History Tobacco Use [...] ABBOTT RN To: CINTIA KILGORE MD; SHIRLENE ABOBTT RN; Sent: 11/22/2013 10:08:51 CDT Subject: General [...] covered. Pt will talk to pharmacy. Source: [facility] POWERCHART Document Id: [id number] Electronically signed by Conversion, [facility] Control Systems Designer [id number] at 02/03/2017 4:58 AM CDT Miscellaneous - [...] indapamide, Chlorathyazide, hydroclorathyzide, metolazone. Please advise. Source: [employer] Document Id: [id number] Electronically signed by Conversion, [employer] Control Systems Designer [id number] at 02/03/2017 4:58 AM CDT Miscellwalter - Tiffany Owens, L.P.N. - 11/18/2013 4:24 PM CDT General Message From: TIFFANY OWENS LPN To: CINTIA KILGORE MD; Sent: 11/18/2013 16:24:01 CDT Subject: General Message lauren Bautista/silvestre repeated 173/93 large cuff, left arm Source: [employer] Document Id: [id number] Electronically signed by Conversion, [employer] Control Systems Designer [id number] at 02/03/2017 4:58 AM CDT Miscellaneous - Tiffany Owens, L.P.N. - 11/18/2013 [...] OWENS LPN - 11/18/2013 16:19 CDT Source: [employer] Document Id: [id number] CDT!9 Miscellaneous - Tiffany Owens L.P.N. - 11/18/2013 4:07 PM CDT General Message From: TIFFANY OWENS LPN To: CINTIA KILGORE MD; Sent: 11/18/2013 16:07:19 CDT Subject: General Message Dr. Song, pt.here for 152/82.Left arm ,large cuff .Pulse 48.slight irrg. Will repeat. thank youcolleen Source: [employer] Document Id: [id number] Miscellaneous - Tiffany Owens L.P.N. - 11/18/2013 [...] Fraire LPN - 11/18/2013 16:01 CDT Source: [employer] Document Id: [id number] CDT!9 documented in this encounter Plan of Treatment Not on filedocumented as of this encounter Visit Diagnoses Not on filedocumented in this encounter Additional Health Concerns Assessment Noted Time PHQ-9 Depression Total Score: 18 02/14/2013 9:53 AM CD T documented as of this encounter
--- OUTSIDE RECORDS SUMMARY | 2022-08-19 10:35 | XMS_ITS | Encounter Summary ---
:1960 Author Organization [facility] Address [address] [place] [address] Care Team Providers Name Role Phone Unavailable Primary Care Provider Unavailable Encounter Details Date Type Department Care Team Description 10/18/2013 Hospital Encounter HX [facility] [place] Cintia Aguirre M.D. [address] [place] [phone] (Wo rk) Social History Tobacco Use Types Packs/Day Years Used Date Smoking Tobacco: Never Assessed Sex Assigned at Date Recorded Not on file documented as of this encounter Last Filed Vital Signs Vital Sign Reading Time Taken Comments Blood Pressure 159/98 10/18/2013 10:56 AM CUSTOMER TRAINING SPECIALIST Pulse 54 10/18/2013 10:41 AM CUSTOMER TRAINING SPECIALIST Temperature - - Respiratory Rate 16 10/18/2013 10:41 AM CUSTOMER TRAINING SPECIALIST Oxygen Saturation - - Inhaled Oxygen Concentration - - Weight 155 kg (342 lb 9.5 oz) 10/18/2013 10:41 AM CUSTOMER TRAINING SPECIALIST Height - - Body Mass Index 46.4 09/30/2013 11:38 AM CUSTOMER TRAINING SPECIALIST documented in this encounter Progress Notes Cintia Cobb M.D. - 10/18/2013 10:37 AM CST [id number] CHIEF COMPLAINT/REASON FOR VISIT Followup blood pressure [...] KILGORE MD On: 10/26/2013 04:23 PM Source: [facility] MHSDOLBEYNONRADSYS Document Id: [id number] OMER TRAINING SPECIALIST documented in this encounter Miscellaneous Notes Osbaldo - Cintia Cobb M.D. - 10/18/2013 10:50 PM CUSTOMER TRAINING SPECIALIST Quality Measures Quality Measures Entered On: 10/18/2013 22:51 CUSTOMER TRAINING SPECIALIST Performed On: 10/18/2013 22:50 CUSTOMER TRAINING SPECIALIST by CINTIA KILGORE MD Diabetes Date of Last Foot Exam : 10/18/2013 CUSTOMER TRAINING SPECIALIST CINTIA KILGORE MD - 10/18/2013 22:50 CUSTOMER TRAINING SPECIALIST Source: [facility] POWERCHART Document Id: [id number] CUSTOMER TRAINING SPECIALIST!3 OMER TRAINING SPECIALIST Lulycellaneous - Cintia Cobb M.D. - 10/18/2013 11:29 AM CUSTOMER TRAINING SPECIALIST Ambulatory Patient Summary [address] [place] [address] Visit Information Name: LAZ LUNA [facility] Number: [id number] Current Date: 10/18/2013 11:29:55 Physicians [...] once a day New Routed to [address] [address] docusate-senna (Dok Plus) 2 [...] appointment detail needed. Your Goals/Additional instructions: Source: [facility] POWERCHART Document Id: [id number] OMER TRAINING SPECIALIST Miscellaneous - Cintia Cobb M.D. - 10/18/2013 11:29 AM CUSTOMER TRAINING SPECIALIST Ambulatory Depart Summary [address] [address] Visit Information Name: LAZ LUNA [facility] Number: [id number] Visit Date: 10/18/2013 11:29:49 Attending [...] once a day New Routed to [address] [address] docusate-senna (Dok Plus) 2 Tablet(s), Oral, once [...] in case of emergency. Additional Information: Source: [facility] POWERCHART Document Id: [id number] Anne Marie Hensley L.P.N. - 10/18/2013 11:00 AM CST Quality Measures Quality Measures Entered On: 10/18/2013 11:00 CUSTOMER TRAINING SPECIALIST Performed On: 10/18/2013 11:00 CUSTOMER TRAINING SPECIALIST by ANNE MARIE TUTTLE LPN, RT Diabetes Date of Last Eye Exam : 09/07/2013 CUSTOMER TRAINING SPECIALIST ANNE MARIE TUTTLE LPN, RT - 10/18/2013 11:00 CUSTOMER TRAINING SPECIALIST Source: [employer] Document Id: [id number] CUSTOMER TRAINING SPECIALIST!3 OMER TRAINING SPECIALIST Anne Marie Dasilva L.P.NPili - 10/18/2013 10:56 AM CST Ambulatory Vitals Height Weight Ambulatory Vitals Height Weight Entered On: 10/18/2013 10:56 CUSTOMER TRAINING SPECIALIST Performed On: 10/18/2013 10:56 CUSTOMER TRAINING SPECIALIST by ANNE MARIE TUTTLE LPN, RT Vitals/Ht/Wt Systolic Blood Pressure : 159 mmHg (HI) Diastolic Blood Pressure : 98 mmHg (>HHI) NIBP Mean : 118 mmHg BP Location : Right upper extremity Blood Pressure Cuff Size : Large ANNE MARIE TUTTLE LPN, RT - 10/18/2013 10:56 CUSTOMER TRAINING SPECIALIST Source: [employer] Document Id: [id number] CUSTOMER TRAINING SPECIALIST!7 OMER TRAINING SPECIALIST Osbaldo - Anne Marie Tuttle L.P.NPili - 10/18/2013 10:52 AM CST Quality Measures Quality Measures Entered On: 10/18/2013 10:53 CUSTOMER TRAINING SPECIALIST Performed On: 10/18/2013 10:52 CUSTOMER TRAINING SPECIALIST by ANNE MARIE TUTTLE LPN, RT Diabetes Date of Last Foot Exam : 10/18/2013 CUSTOMER TRAINING SPECIALIST ANNE MARIE TUTTLE LPN, RT - 10/18/2013 10:52 CUSTOMER TRAINING SPECIALIST Source: [employer] Document Id: [id number] CUSTOMER TRAINING SPECIALIST!3 OMER TRAINING SPECIALIST Miscellaneous - Anne Marie Tuttle L.P.N. - 10/18/2013 10:41 AM CST Adult Racing Board Marker Intake/History Adult Racing Board Marker Intake/History Entered On: 10/18/2013 10:46 CUSTOMER TRAINING SPECIALIST Performed On: 10/18/2013 10:41 CUSTOMER TRAINING SPECIALIST by ANNE MARIE TUTTLE LPN, RT [...] MARIE TUTTLE LPN, RT - 10/18/2013 10:41 CUSTOMER TRAINING SPECIALIST General Info Information Given By : Patient Preferred Communication Mode : Verbal Languages : East Timorese ANNE MARIE TUTTLE LPN, RT - 10/18/2013 10:41 CUSTOMER TRAINING SPECIALIST Subjective Pain Symptoms : No ANNE MARIE TUTTLE LPN, RT - 10/18/2013 10:41 CUSTOMER TRAINING SPECIALIST Dependent Habits Tobacco Use/Currently Using : No Smoking Status : Never smoker ANNE MARIE TUTTLE LPN, RT - 10/18/2013 10:41 CUSTOMER TRAINING SPECIALIST Tobacco Use Grid Last Use : never ANNE MARIE TUTTLE LPN, RT - 10/18/2013 10:41 CUSTOMER TRAINING SPECIALIST Caffeine Use Grid Caffeine Use : Current Type : Coffee, Soft drinks Frequency : Weekly Amount : soda- weekly; coffee- 1x/week ANNE MARIE TUTTLE LPN, RT - 10/18/2013 10:41 CUSTOMER TRAINING SPECIALIST Recreational Drug Use Grid Drug Use : None ANNE MARIE TUTTLE LPN, RT - 10/18/2013 10:41 CUSTOMER TRAINING SPECIALIST Source: [facility] POWERCHART Document Id: [id number] CUSTOMER TRAINING SPECIALIST!38 OMER TRAINING SPECIALIST documented in this encounter Plan of Treatment Not on filedocumented as of this encounter Visit Diagnoses Not on filedocumented in this encounter Additional Health Concerns Assessment Noted Time PHQ-9 Depression Total Score: 18 02/14/2013 9:53 AM CD T documented as of this encounter
--- OUTSIDE RECORDS SUMMARY | 2022-08-19 10:36 | XMS_ITS | Encounter Summary ---
:1960 Author Organization [facility] Address [address] [place] [address] Care Team Providers Name Role Phone Unavailable Primary Care Provider Unavailable Encounter Details Date Type Department Care Team Description 02/11/2013 Hospital Encounter HX [facility] FAMILY[facility] Rosangela Vieira M.D. [address] [facility], [address] [place], [place] [address] (Wo rk) Social History [...] Vieira M.D. - 02/11/2013 3:39 PM CDT [id number] CHIEF COMPLAINT/REASON FOR VISIT Multiple issues. HISTORY [...] a day, and has been referred to [facility] for a recalcitrant A1c of over 10%. [...] he told me he was referred to [facility] and so he will follow up with them. He was wondering about weight loss surgery. He also has other health conditions that can make the surgery somewhat higher risk including high blood pressure, high cholesterol and of course the diabetes.He will go for the referral at [facility]. Mariluz Vieira M.D./steven Electronically Signed By: MARILUZ VIEIRA MD On: 02/15/2013 11:53 AM Source: [facility] MHSDOLBEYNONRADSYS Document Id: [id number] documented in this encounter Miscellaneous Notes Miscellaneous - Mariluz Vieira M.D. - 02/11/2013 4:40 PM CDT Ambulatory Patient Summary [address] [place] [address] Visit Information Name: LAZ LUNA [facility] Number: [id number] Current Date: 02/11/2013 16:40:07 Physicians Attending Provider: MARILUZ VIEIRA MD Primary Care Provider: STEVE ANDREA [facility] Your Medications Here is a list [...] Date Time Location Reason Provider 03/16/2013 16:00 [facility] Mariluz Vieira MD Your Goals/Additional instructions: Source: [facility] POWERCHART Document Id: [id number] Miscellaneous - Mariluz Vieira M.D. - 02/11/2013 4:40 PM CDT Ambulatory Depart Summary [address] [address] Visit Information Name: LUNALAZ [facility] Number: [id number] Visit Date: 02/11/2013 16:40:06 Attending Provider: MARILUZ VIEIRA MD Primary Care Provider: STEVE ANDREA CYTOTECHNOLOGIST/HISTOTECHNOLOGIST LAZ LUNA has been given the following [...] how to best lower your sugars Source: [facility] POWERCHART Document Id: [id number] Miscellaneous - Ashley Dia L.P.N. - 02/11/2013 3:54 PM CDT Adult Head Boys Tennis Coach Intake/History Adult Head Boys Tennis Coach Intake/History Entered On: 02/11/2013 16:00 CDT Performed [...] Given By : Patient Languages : Pashto ASHLEY DIA - 02/11/2013 15:54 CDT Subjective [...] ASHLEY DIA - 02/11/2013 15:54 CDT [facility] Document Id: [id number] CDT!33 documented in this encounter Plan of Treatment Not on filedocumented as of this encounter Visit Diagnoses Not on filedocumented in this encounter
--- OUTSIDE RECORDS SUMMARY | 2022-08-19 10:36 | XMS_ITS | Encounter Summary ---
:1960 Author Organization [facility] Address [address] [place] [address] Care Team Providers Name Role Phone Unavailable Primary Care Provider Unavailable Encounter Details Date Type Department Care Team Description 06/06/2013 Hospital Encounter HX [facility] INTERNMED Aranza Ramirez PPiliAPili-Kelvin [address] [place] [phone] (Wo rk) Social History Tobacco Use Types [...] Chhaya Ramirez - 06/06/2013 12:00 AM CDT [id number] CHIEF COMPLAINT / REASON FOR VISIT Medical [...] sizes. He states he is working on [employer]. He drinks soda occasionally, but refuses to [...] EMR 06/06/2013. No changes. 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 TOBACCO USE: None. ALCOHOL USE: None. VITAL SIGNS HEIGHT: 181.7 cm. CURRENT BODY WEIGHT: 156.8 kg, body weight is up 2 kg since 05/02/2013. BMI: 47.49 kg/m IMPRESSION / REPORT / PLAN DIAGNOSTICS: Updated hemoglobin A1c was drawn on 06/01/2013 and is at 9%. IMPRESSION: Cpxcv-wdjs-giht-old male here for pre-gastric bypass surgery education session. Patient is taking gastric bypass classes in [employer]. These start sometime in June. He estimates [...] to discuss liquid intake and carbonation with [facility]. READINESS TO LEARN: Low interest. TEACHING METHOD USED: Verbal discussion. STAGE OF BEHAVIOR CHANGE: Pre-contemplation. EDUCATION OUTCOME: Verbalizes understanding. Patient selected behavioral objectives: 1) To follow up with [facility] regarding above goals. [...] CHHAYA ALLRED On: 06/07/2013 11:44 AM Source: [facility] MHSDOLBEYNONRADSYS Document Id: [id number] documented in this encounter Miscellaneous Notes Miscellaneous - Chhaya Ramirez - 06/06/2013 9:11 AM CDT Ambulatory Patient Summary [facility] [address] [place] [address] Visit Information Name: LAZ LUNA [facility] Number: [id number] Current Date: 06/06/2013 09:11:25 Physicians Attending Provider: CHHAYA ALLRED Primary Care Provider: STEVE ANDREA SEWER TAPPER Your Medications Here is a list of [...] No Appointments found Your Goals/Additional instructions: Source: [facility] POWERCHART Document Id: [id number] Miscellaneous - Chhaya Ramirez - 06/06/2013 9:11 AM CDT Ambulatory Depart Summary [facility] [address] [place] [address] Visit Information Name: LAZ LUNA [facility] Number: [id number] Visit Date: 06/06/2013 09:11:24 Attending Provider: CHHAYA ALLRED Primary Care Provider: STEVE ANDREA SEWER TAPPER LAZ LUNA has been given the following [...] your provider for clarification. Additional Information: Source: [facility] POWERCHART Document Id: [id number] Miscellaneous - Chhaya Ramirez - 06/06/2013 9:02 AM CDT Adult Senior Sql Developer Intake/History Adult Senior Sql Developer Intake/History Entered On: 06/06/2013 9:04 CDT Performed [...] Information Given By : Patient Languages : Moroccan CHHAYA ALLRED - 06/06/2013 9:02 CDT Subjective Pain Symptoms : Yes CHHAYA ALLRED - 06/06/2013 9:02 CDT Pain Pain Assessment Grid Pain 1 Location : Generalized CHHAYA ALLERD - 06/06/2013 9:02 CDT Dependent Habits Tobacco [...] CHHAYA ALLRED - 06/06/2013 9:02 CDT Source: [employer] Document Id: [id number] CDT!33 documented in this encounter Plan of Treatment Not on filedocumented as of this encounter Visit Diagnoses Not on filedocumented in this encounter Additional Health Concerns Assessment Noted Time PHQ-9 Depression Total Score: 18 02/14/2013 9:53 AM CD T documented as of this encounter
--- OUTSIDE RECORDS SUMMARY | 2022-08-19 10:36 | XMS_ITS | Encounter Summary ---
:1960 Author Organization [facility] Address [address] [place] [address] Care Team Providers Name Role Phone Unavailable Primary Care Provider Unavailable Encounter Details Date Type Department Care Team Description 07/14/2012 Hospital Encounter HX [facility] FAMILYPRA Rosangela Vieira M.D. [address] [facility], [address] [place], [place] [address] (Wo rk) Social History Tobacco Use Types Packs/Day Years Used Date Smoking Tobacco: Never Assessed Sex Assigned at Date Recorded Not on file documented as of this encounter Last Filed Vital Signs Vital Sign Reading Time Taken Comments Blood Pressure 154/102 07/14/2012 2:17 PM CONSUMER MARKETING MANAGER Pulse 68 07/14/2012 2:13 PM CONSUMER MARKETING MANAGER Temperature - - Respiratory Rate 20 07/14/2012 2:13 PM CONSUMER MARKETING MANAGER Oxygen Saturation - - Inhaled Oxygen Concentration - - Weight 151 kg (332 lb 14.3 oz) 07/14/2012 2:13 PM CONSUMER MARKETING MANAGER Height - - Body Mass Index 46.61 02/19/2012 9:32 AM CDT documented in this encounter Progress Notes Mariluz Vieira M.D. - 07/14/2012 2:02 PM CST [id number] CHIEF COMPLAINT/REASON FOR VISIT Rash HISTORY OF [...] the 200 to 300s. 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 - 07/14/2012 4:00 PM CST Results Notification From: MARILUZ VIEIRA MD To: STEVE ANDREA CNP Sent: 07/14/2012 16:00:21 CONSUMER MARKETING MANAGER ! Show up: 07/14/2012 22:00:21 [facility] Subject: Results Notification Actions: Notify patient of results Source: [facility] POWERCHART Document Id: [id number] Electronically signed by Dayami [facility] Director Women [id number] at 02/07/2017 6:42 PM CDT Miscellaneous - Mariluz Vieira M.D. - 07/14/2012 2:56 PM CST Ambulatory Patient Summary [address] [address] Visit Information Name: NOEMÍ LUNA Current Date: [...] today- A1c, lipids, and comprehensive panel Source: [facility] POWERCHART Document Id: [id number] UMER MARKETING MANAGER Miscellaneous - Mariluz Vieira M.D. - 07/14/2012 2:56 PM CST Ambulatory Depart Summary [address] [address] Visit Information Name: NOEMÍ LUNA Visit Date: 07/14/2012 14:56:30 Attending Provider: MARILUZ VIEIRA MD Primary Care Provider: STEVE ANDREA [facility] LUNA, NOEMÍ has been given the following [...] your provider for clarification. Additional Information: Source: [facility] POWERCHART Document Id: [id number] UMER MARKETING MANAGER Miscellaneous - Ynes Dia L.P.N. - 07/14/2012 2:17 PM CST Ambulatory Vitals Height Weight Ambulatory Vitals Height Weight Entered On: 07/14/2012 14:17 CONSUMER MARKETING MANAGER Performed On: 07/14/2012 14:17 CONSUMER MARKETING MANAGER by YNES DIA Vitals/Ht/Wt Systolic Blood Pressure : 154mmHg (HI) Diastolic Blood Pressure : 102mmHg (>HHI) NIBP Mean : 119mmHg BP Location : Left upper extremity Blood Pressure Cuff Size : Large YNES DIA - 07/14/2012 14:17 CONSUMER MARKETING MANAGER Source: [facility] POWERCHART Document Id: [id number] UMER MARKETING MANAGER Miscellaneous - Ynes Dia L.P.N. - 07/14/2012 2:17 PM CST Ambulatory Vitals Height Weight Ambulatory Vitals Height Weight Entered On: 07/14/2012 14:19 CONSUMER MARKETING MANAGER Performed On: 07/14/2012 14:17 CONSUMER MARKETING MANAGER by YNES DIA Vitals/Ht/Wt Systolic Blood Pressure : 154mmHg (HI) Diastolic Blood Pressure : 102mmHg (>HHI) NIBP Mean : 119mmHg BP Location : Left upper extremity Blood Pressure Cuff Size : Large YNES DIA - 07/14/2012 14:17 CONSUMER MARKETING MANAGER Source: [facility] [employer] Document Id: [id number] UMER MARKETING MANAGER Miscellaneous - Ynes Dia L.PPiliNPili - 07/14/2012 2:13 PM CST Adult Crayon Grader Intake/History Adult Crayon Grader Intake/History Entered On: 07/14/2012 14:17 CONSUMER MARKETING MANAGER Performed On: 07/14/2012 14:13 CONSUMER MARKETING MANAGER by YNES DIA Intake Chief Complaint [...] : 151.00kg YNES DIA - 07/14/2012 14:13 CONSUMER MARKETING MANAGER Subjective Pain Symptoms : No YNES DIA - 07/14/2012 14:13 CONSUMER MARKETING MANAGER Dependent Habits Tobacco Use/Currently Using : No Smoking Status : Never smoker YNES DIA - 07/14/2012 14:13 CONSUMER MARKETING MANAGER Caffeine Use Grid Caffeine Use : Current Type : Soft drinks Frequency : Occasionally YNES DIA - 07/14/2012 14:13 CONSUMER MARKETING MANAGER Recreational Drug Use Grid Drug Use : None YNES DIA - 07/14/2012 14:13 CONSUMER MARKETING MANAGER Allergy Allergies (Active) Cipro Estimated Onset Date: Unspecified ; Created By: STEVE ANDREA CNP; Reaction Status: Active ;Category: Drug ; Substance: Cipro ; Type: Allergy ; Updated By: STEVE ANDREA CNP; Reviewed Date: 07/14/2012 14:13 CONSUMER MARKETING MANAGER Influenza Virus Vaccine Estimated Onset Date: Unspecified ; Reactions: diarrhea ; Created By: STEVE ANDREA CNP; Reaction Status: Active ; Category: Drug ; Substance: Influenza Virus Vaccine ; Type: Intolerance ; Updated By: STEVE ANDREA CNP; Reviewed Date: 07/14/2012 14:13 CONSUMER MARKETING MANAGER Source: [facility] POWERCHART Document Id: [id number] UMER MARKETING MANAGER documented in this encounter Plan of Treatment Not on filedocumented as of this encounter Procedures Procedure Name Priority Date/Time Associated Comments Diagnosis LIPID PANEL, S Routine 07/14/2012 2:56 PM Results for this CONSUMER MARKETING MANAGER procedure are i n the results section. HEMOGLOBIN A1C, B Routine 07/14/2012 2:56 PM Resu lts for this CONSUMER MARKETING MANAGER procedure are i n the results section. COMPREHENSIVE Routine 07/14/2012 2:56 PM Results for this METABOLIC PANEL, S/P CONSUMER MARKETING MANAGER procedu re are in the results section. documented in this encounter Results (ABNORMAL) Lipid Panel (07/14/2012 2:56 PM CONSUMER MARKETING MANAGER) Patholo gist Method Time Signature Cholesterol, Total 154 0 - 200 POWERCHART MGDL HX HDL 43.0 40.0 - POWERCHART 60.0 MGDL Triglycerides 240 (H) 0 - 150 POWERCHART MGDL Calculated LDL 63 0 - 100 POWERCHART MGDL Specimen (Source) Anatomical Collection Method Collection Time Re ceived Time Location / / Volume Laterality Blood 07/14/2012 2:56 PM CONSUMER MARKETING MANAGER Mariluz Vieira M.D. LAB BLOOD ADD-ON Performing Organization Address City/State/ZIP Code Phon e Number POWERCHART (ABNORMAL) Hemoglobin A1c (07/14/2012 2:56 PM CONSUMER MARKETING MANAGER) P athologist Signature Hemoglobin A1c, 9.8 (H) 4.0 - 6.0 POWERCHART B Specimen (Source) Anatomical Collection Method Collection Time Re ceived Time Location / / Volume Laterality Blood 07/14/2012 2:56 PM CONSUMER MARKETING MANAGER Mariluz Vieira M.D. LAB BLOOD ADD-ON Performing Organization Address City/State/ZIP Code Phon e Number POWERCHART (ABNORMAL) CMP (Comprehensive Metabolic Panel) (07/14/2012 2:56 PM CONSUMER MARKETING MANAGER) [facility] gist Method Time Signature BUN (Blood [...] MLMIN POWERCHART eGFR Black/ >60 MLMIN POWERCHART [place] Glucose, Fasting, S 165 (H) 70 - 99 POWERCHART MGDL Specimen (Source) Anatomical Collection Method Collection Time Re ceived Time Location / / Volume Laterality Blood 07/14/2012 2:56 PM CONSUMER MARKETING MANAGER Mariluz Vieira M.D. LAB BLOOD ADD-ON Performing Organization Address City/State/ZIP Code Phon e Number POWERCHART documented in this encounter Visit Diagnoses Not on filedocumented in this encounter
--- OUTSIDE RECORDS SUMMARY | 2022-08-19 10:36 | XMS_ITS | Encounter Summary ---
:1960 Author Organization [facility] Address [address] [place] [address] Care Team Providers Name Role Phone Unavailable [...] Lucero Ed.D. - 03/02/2013 12:00 AM CDT [id number] LETTER Laz Luna [address] [facility] [address] [facility] [phone] March 02, 2013 Dear Ed: Thank you for requesting an appointment for services at the [facility] in [facility]. Your Initial Evaluation appointment has been scheduled in our Psychology Department with: Friday, May 03, 2013 at 12:45 PM for Paperwork & Registration followed by a 45 minute appointment at 1:30 PM with your provider: Sebas Soares Asp, Ed.D., L.P. [facility] Your appointment with your provider will [...] are located on the 3rd floor of [facility]) at [address] [place] [address]. If the above scheduled appointment is not convenient, please contact our office as soon as possible at or to reschedule. We trust that your experience with us will be a pleasant and worthwhile one. Sincerely, [facility] Contact Information March 02, 2013 Intake done [facility]#: [id number] NAME: Laz Luna SSN: [id number] : 1960 Age: [age] year old Sex: male Spouse/ S.O.: - Parent/Guardian: - ADDRESS: [address] [place] [phone] Phone Numbers: [phone] (home) Phone Contact: Home: Yes Messages: Yes Written Contact: Home: Yes Work: No No coverage found. Court Ordered/Litigation No Referral Information Caller: Self Referred by: [place] Location: [place] Referred to: Dr. Lucero Prior Contact with [facility]? No Date: - Doctor seen: NA Reason: Learn Program Length and/or Severity of Problem: - Past or Current Mental Health Provider: n/a Primary Care Physician: No primary provider on file. Medication: n/a Dosage: n/a Appointments Appt. With: Sebas Soares Asp, Ed.D., Jun [facility] Initial: 05/03/13 @ 1:30PM F/U: - 3rd.: - Intake Packet Sent on __03/02/13 Wait List Yes Source: [facility] Document Id: [id number] documented in this encounter Plan of Treatment Not on filedocumented as of this encounter Visit Diagnoses Not on filedocumented in this encounter Additional Health Concerns Assessment Noted Time PHQ-9 Depression Total Score: 18 02/14/2013 9:53 AM CD T documented as of this encounter
--- OUTSIDE RECORDS SUMMARY | 2022-08-19 10:36 | XMS_ITS | Encounter Summary ---
:1960 Author Organization [facility] Address [address] [place] [address] Care Team Providers Name Role Phone Unavailable Primary Care Provider Unavailable Encounter Details Date Type Department Care Team Description 07/12/2013 Hospital Encounter HX [facility] Mehreen Perez, M.S.N., R.N., [facility] [address] [place] [phone] (Wo rk) Social History Tobacco Use [...]
--- OUTSIDE RECORDS SUMMARY | 2022-08-19 10:36 | XMS_ITS | Encounter Summary ---
:1960 Author Organization [facility] Address [address] [place] [address] Care Team Providers Name Role Phone Unavailable Primary Care Provider Unavailable Encounter Details Date Type Department Care Team Description 07/11/2013 Hospital Encounter HX [facility] FB LAB Angélica Jolley M.D. [address] [place], [place] [phone] (Wo rk) Social History Tobacco Use Types Packs/Day Years Used Date Smoking Tobacco: Never Assessed Sex Assigned at Date Recorded Not on file documented as of this encounter Plan of Treatment Not on filedocumented as of this encounter Procedures Procedure Name Priority Date/Time Associated Diagnosis Comme nts HEMOGLOBIN A1C, B Routine 07/11/2013 9:41 AM Resu lts for this ACCOUNTS PAYABLE MANAGER procedure are i n the results section. documented in this encounter Results (ABNORMAL) Hemoglobin A1c (07/11/2013 9:41 AM ACCOUNTS PAYABLE MANAGER) athologist Signature Hemoglobin A1c, 8.0 (H) 4.0 - 6.0 POWERCHART B Specimen (Source) Anatomical Collection Method Collection Time Re ceived Time Location / / Volume Laterality Blood 07/11/2013 9:41 AM ACCOUNTS PAYABLE MANAGER Renetta Jolley M.D. LAB BLOOD ADD-ON Performing Organization Address City/State/ZIP Code Phon e Number POWERCHART documented in this encounter Visit Diagnoses Not on filedocumented in this encounter Additional Health Concerns Assessment Noted Time PHQ-9 Depression Total Score: 18 02/14/2013 9:53 AM CD T documented as of this encounter
--- OUTSIDE RECORDS SUMMARY | 2022-08-19 10:36 | XMS_ITS | Encounter Summary ---
:1960 Author Organization [facility] Address [address] [place] [address] Care Team Providers Name Role Phone Unavailable Primary Care Provider Unavailable Encounter Details Date Type Department Care Team Description 07/11/2013 Hospital Encounter HX [facility] Bhumi Andrea, HAKEEM, C.N.P. [address] [place] [phone] (Wo rk) Social History Tobacco Use Types Packs/Day Years Used Date Smoking Tobacco: Never Assessed Sex Assigned at Date Recorded Not on file documented as of this encounter Last Filed Vital Signs Vital Sign Reading Time Taken Comments Blood Pressure 170/96 07/11/2013 9:22 AM RN HOUSE SUPERVISOR Pulse 68 07/11/2013 8:56 AM RN HOUSE SUPERVISOR Temperature - - Respiratory Rate 16 07/11/2013 8:56 AM RN HOUSE SUPERVISOR Oxygen Saturation - - Inhaled Oxygen Concentration - - Weight 154 kg (338 lb 6.5 oz) 07/11/2013 8:56 AM RN HOUSE SUPERVISOR Height - - Body Mass Index 46.49 07/04/2013 3:11 PM CDT documented in this encounter Progress Notes Steve Andrea APRN, C.N.P. - 07/11/2013 8:43 AM CST [id number] CHIEF COMPLAINT/REASON FOR VISIT 1. Hypertension. 2. Diabetes type 2 uncontrolled. HISTORY OF PRESENT ILLNESS 1. Ed states he has been monitoring his blood pressure. He has been seen at [facility] for dietetic counseling for [...] and results need to be sent to [place]. I explained to him that [facility] can see his lab results in the [...] ANDREA CNP On: 07/12/2013 01:31 PM Source: [facility] MHSDOLBEYNONRADSYS Document Id: [id number] HOUSE SUPERVISOR documented in this encounter Miscellaneous Notes Miscellaneous - Alysia Villafana R.N. - 07/19/2013 9:45 AM CST Medication Refill Msg Document Contains Addenda Addendum by ALYSIA VILLAFANA on 19 July 2013 11:47:50 RN HOUSE SUPERVISOR done Addendum by STEVE ANDREA CNP on 19 July 2013 11:39:36 RN HOUSE SUPERVISOR From: STEVE ANDREA CNP To: ALYSIA VILLAFANA; Sent: 07/19/2013 11:39:36 RN HOUSE SUPERVISOR Subject: RE: Medication Refill Msg Yes, Ok to refill for 30 days from July 14, 2013. From: ALYSIA VILLAFANA To: STEVE ANDREA CNP; Sent: 07/19/2013 09:45:05 RN HOUSE SUPERVISOR Subject: Medication Refill Msg Caller is: ( ) Patient ( ) Mother ( ) Father ( ) Spouse ( ) Daughter ( ) Son ( ) Pharmacy ( ) Other: Provider: Pharmacy: [facility] [place] Name of Medications Needing Refill:can I fill metformin for this patient? Last Refill Date: Additional Information:see 07-15-13 phone message Last / Future Appointment:07-11-13 Disposition: ( ) Send to Pharmacy ( ) Call to Pharmacy ( ) Patient will pick remover Script ( ) Mail Rx to Patient Source: [facility] POWERCHART Document Id: [id number] Electronically signed by Dayami [facility] Insurance Office Manager [id number] at 02/04/2017 1:28 AM CDT Miscellaneous - Steve Andrea, HAKEEM, C.N.P. - 07/11/2013 2:11 PM CST Schedule Follow-Up Visit 11 July 2013 NOEMÍ LUNA [address] [place] [address] [address] [facility] [phone] Dear NOEMÍ LUNA, Thank you for choosing [facility] for your health care [...] (mL/min) >60 07/11/2013 Sincerely, STEVE ANDREA [address] [place] [address] Electronic Signature Electronically Signed By: STEVE ANDREA CNP On: 11 July 2013 This document has images extracted. Source: [facility] POWERCHART Document Id: [id number] Miscellaneous - Steve Andrea, HAKEEM, C.N.P. - 07/11/2013 9:27 AM CST Ambulatory Patient Summary [address] [facility] [place] [address] Visit Information Name: NOEMÍ LUNA [facility] Number: [id number] Current Date: 07/11/2013 09:27:48 Physicians [...] appointment detail needed. Your Goals/Additional instructions: Source: [facility] POWERCHART Document Id: [id number] HOUSE SUPERVISOR Miscellaneous - Steve Andrea APRN, C.N.P. - 07/11/2013 9:27 AM CST Ambulatory Depart Summary [id number] [place] [address] Visit Information Name: CARLYLE NOEMÍ [facility] Number: [id number] Visit Date: 07/11/2013 09:27:47 Attending [...] Additional Information: Source: [facility] PowerUp ToysCHART Document Id: [id number] HOUSE SUPERVISOR Miscellaneous - Steve Andrea APRN, C.N.P. - 07/11/2013 9:22 AM CST Ambulatory Vitals Height Weight Ambulatory Vitals Height Weight Entered On: 07/11/2013 9:22 RN HOUSE SUPERVISOR Performed On: 07/11/2013 9:22 RN HOUSE SUPERVISOR by STEVE ANDREA CNP Vitals/Ht/Wt Systolic Blood Pressure : 170 mmHg (>HHI) Diastolic Blood Pressure : 96 mmHg (>HHI) NIBP Mean : 121 mmHg STEVE ANDREA CNP - 07/11/2013 9:22 RN HOUSE SUPERVISOR Source: [facility] [employer] Document Id: [id number] RN HOUSE SUPERVISOR!5 HOUSE SUPERVISOR Miscellaneous - Marcial Chavez L.P.NPili - 07/11/2013 8:56 AM CST Adult Agronomy Technician Intake/History Adult Agronomy Technician Intake/History Entered On: 07/11/2013 8:59 RN HOUSE SUPERVISOR Performed On: 07/11/2013 8:56 RN HOUSE SUPERVISOR by MARCIAL CHAVEZ Intake Chief Complaint : high blood pressure Temperature Core : 36.6 DegC(Converted to: 97.9 DegF) Peripheral Pulse Rate : 68 /min Respiratory Rate : 16 /min Systolic Blood Pressure : 128 mmHg Diastolic Blood Pressure : 82 mmHg NIBP Mean : 97 mmHg Actual Weight : 153.5 kg(Converted to: 338 lb 7 oz) Dosing Weight Clinic : 153.5 kg MARCIAL CAHVEZ - 07/11/2013 8:56 RN HOUSE SUPERVISOR General Info Information Given By : Patient Languages : [place] Citizen MARCIAL CHAVEZ - 07/11/2013 8:56 RN HOUSE SUPERVISOR Subjective Pain Symptoms : No MARCIAL CHAVEZ - 07/11/2013 8:56 RN HOUSE SUPERVISOR Dependent Habits Tobacco Use/Currently Using : No Smoking Status : Never smoker MARCIAL CHAVEZ - 07/11/2013 8:56 RN HOUSE SUPERVISOR Tobacco Use Grid Last Use : non MARCIAL CHAVEZ - 07/11/2013 8:56 RN HOUSE SUPERVISOR Caffeine Use Grid Caffeine Use : Current Type : Coffee, Soft drinks Frequency : Weekly Amount : soda- weekly; coffee- 1x/week MARCIAL CHAVEZ - 07/11/2013 8:56 RN HOUSE SUPERVISOR Recreational Drug Use Grid Drug Use : None MARCIAL CHAVEZ - 07/11/2013 8:56 RN HOUSE SUPERVISOR Source: [facility] POWERCHART Document Id: [id number] RN HOUSE SUPERVISOR!31 HOUSE SUPERVISOR documented in this encounter Plan of Treatment Not on filedocumented as of this encounter Procedures Procedure Name Priority Date/Time Associated Comments Diagnosis ALBUMIN, RANDOM, U Routine 07/11/2013 9:42 Result s for this AM RN HOUSE SUPERVISOR procedure are i n the results section. ASPARTATE Routine 07/11/2013 9:41 Results for this AMINOTRANSFERASE (AST), AM RN HOUSE SUPERVISOR proc edure are in S/P the results section. documented in this encounter Results (ABNORMAL) Microalbumin, Random, Urine (07/11/2013 9:42 AM RN HOUSE SUPERVISOR) P athologist Signature HXU Albumin % 282 MGDL POWERCHART Creatinine, 126 MGDL POWERCHART Random, U Albumin/Creati 224 (H) 0 - 17 POWERCHART nine Ratio MGGM Specimen (Source) Anatomical Collection Method Collection Time Re ceived Time Location / / Volume Laterality Urine 07/11/2013 9:42 AM RN HOUSE SUPERVISOR Kelvin Grier APRNNPiliPPili LAB URINE ORDERABLES Performing Organization Address City/State/ZIP Code Phon e Number POWERCHART AST (Aspartate Aminotransferase) (07/11/2013 9:41 AM RN HOUSE SUPERVISOR) [facility] Method Time Signature Aspartate 20 8 - 48 POWERCHART Aminotransferase UNITL (AST), S Specimen (Source) Anatomical Collection Method Collection Time Re ceived Time Location / / Volume Laterality Blood 07/11/2013 9:41 AM RN HOUSE SUPERVISOR Steve Andrea APRN C.N.P. LAB BLOOD ADD-ON Performing Organization Address City/State/ZIP Code Phon e Number POWERCHART documented in this encounter Visit Diagnoses Not on filedocumented in this encounter Additional Health Concerns Assessment Noted Time PHQ-9 Depression Total Score: 18 02/14/2013 9:53 AM CD T documented as of this encounter
--- OUTSIDE RECORDS SUMMARY | 2022-08-19 10:36 | XMS_ITS | Encounter Summary ---
:1960 Author Organization [facility] Address [address] [place] [address] Care Team Providers Name Role Phone Unavailable Primary Care Provider Unavailable Encounter Details Date Type Department Care Team Description 02/19/2012 Hospital Encounter HX [facility] FBHB LAB Cindy Moy A PRN, C.N.P. [address] [place], [place] [phone] (Wo rk) Social History [...]
--- OUTSIDE RECORDS SUMMARY | 2022-08-19 10:36 | XMS_ITS | Encounter Summary ---
:1960 Author Organization [facility] Address [address] [place] [address] Care Team Providers Name Role Phone Unavailable Primary Care Provider Unavailable Encounter Details Date Type Department Care Team Description 11/18/2011 Hospital Encounter HX [facility]HB LAB Cindy Moy A PRN, C.N.P. [address] [place], [place] [phone] (Wo rk) Social History [...]
--- OUTSIDE RECORDS SUMMARY | 2022-08-19 10:36 | XMS_ITS | Encounter Summary ---
:1960 Author Organization [facility] Address [address] [place] [address] Care Team Providers Name Role Phone Unavailable Primary Care Provider Unavailable Encounter Details Date Type Department Care Team Description 04/04/2013 Hospital Encounter [facility] INTERNM[facility] Aranza Ramirez, P.APili-C. [address] [place] [phone] (Wo rk) Social History Tobacco Use Types [...] Chhaya Ramirez - 04/04/2013 12:00 AM CDT [id number] CHIEF COMPLAINT / REASON FOR VISIT Referral completed by Steve Moy CNP for pre gastric bypass surgery. HISTORY OF PRESENT ILLNESS DIET RECALL: Patient is following a general eating pattern. Breakfast today was a big breakfast from[employer]. It consisted of eggs, sausage, hash browns [...] own decision. Did recommend thathe contact his assistant health educator at [facility] prior to making self-adjustments. He refuses to contact them stating that they do not return his phone calls. Patient also plans to increase his Victoza himself. Did again recommend that he contact [facility] his assistant health educator prior to doing that as there [...] EMR. 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 TOBACCO USE: None. ALCOHOL USE: None. [...] currently pursuing using the Learn Program in [facility]. First session is not u ntil the end of April. He thinks it will be group sessions but he is not sure of this. He did see [facility] professor of archaeology prior to this appointment and at that [...] and Protein Content of Common Foods - [facility] reference. 2) Nutrition in the Fast Bam, Fast Food Guide. ADMINISTRATIVE BILLING Counseling Time: Spent today with patient 60 minutes. Chhaya Allred R.D., L.D./thai Electronically Signed By: CHHAYA ALLRED On: 04/06/2013 04:45 PM Source: [facility] MHSDOLBEYNONRADSYS Document Id: [id number] documented in this encounter Miscellaneous Notes Miscellaneous [...] in pizza, returned phone call today to [employer] #'s at 10:30 a.m. No answer on either line, unable to leave message. Will try to return call again at later time. Source: [facility] POWERCHART Document Id: [id number] Miscellaneous - Chhaya Ramirez - 04/04/2013 3:26 PM CDT Ambulatory Patient Summary [facility] [address] [place] [id number] Visit Information Name: LAZ LUNA [facility] Number: [id number] Current Date: 04/04/2013 15:26:21 Physicians Attending Provider: CHHAYA ALLRED Primary Care Provider: STEVE MOY FILER HELPER Your Medications Here is a list of [...] No Appointments found Your Goals/Additional instructions: Source: [facility] POWERCHART Document Id: [id number] Miscellaneous - Chhaya Ramirez - 04/04/2013 3:26 PM CDT Ambulatory Depart Summary [address] [address] Visit Information Name: CARLYLE LAZ [facility] Number: [id number] Visit Date: 04/04/2013 15:26:20 Attending Provider: CHHAYA ALLRED Primary Care Provider: STEVE MOY FILER HELPER LAZ LUNA has been given the following [...] your provider for clarification. Additional Information: Source: [facility] POWERCHART Document Id: [id number] Miscellaneous - Chhaya Ramirez - 04/04/2013 3:26 PM CDT Adult Milk Tester Intake/History Adult Milk Tester Intake/History Entered On: 04/04/2013 15:42 CDT Performed [...] Information Given By : Patient Languages : Angolan CHHAYA ALLRED - 04/04/2013 15:26 CDT Subjective [...] CHHAYA ALLRED - 04/04/2013 15:26 CDT Source: [facility] [employer]Global Document Id: [id number] CDT!37 documented in this encounter Plan of Treatment Not on filedocumented as of this encounter Visit Diagnoses Not on filedocumented in this encounter Additional Health Concerns Assessment Noted Time PHQ-9 Depression Total Score: 18 02/14/2013 9:53 AM CD T documented as of this encounter
--- OUTSIDE RECORDS SUMMARY | 2022-08-19 10:36 | XMS_ITS | Encounter Summary ---
:1960 Author Organization [facility] Address [address] [place] [address] Care Team Providers Name Role Phone Unavailable Primary Care Provider Unavailable Encounter Details Date Type Department Care Team Description 07/04/2013 Hospital Encounter HX [facility] INTERNMED Aranza Ramirez PPiliAPili-Kelvin [address] [place] [phone] (Wo rk) Social History Tobacco Use Types [...] Chhaya Ramirez - 07/04/2013 12:00 AM CDT [id number] CHIEF COMPLAINT/REASON FOR VISIT Medical Nutrition Therapy [...] OF GOALS: from 06/06/13: 1. Follow with [facility] Gastric Bypass center, regarding above goals. 2. [...] of Lantus insulin today. 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 TOBACCO USE: None. ALCOHOL USE: [...] CHHAYA ALLRED On: 07/06/2013 04:49 PM Source: [facility] MHSDOLBEYNONRADSYS Document Id: [id number] documented in this encounter Miscellaneous Notes Miscellaneous - Chhaya Ramirez - 07/04/2013 3:18 PM CDT Ambulatory Patient Summary [address] [address] Visit Information Name: LAZ LUNA [facility] Number: [id number] Current Date: 07/04/2013 15:18:34 Physicians Attending Provider: CHHAYA ALLRED Primary Care Provider: STEVE MOY READERS' ADVISORY SERVICE LIBRARIAN LAZ LUNA has been given the following [...] Time Location Reason Provider 07/11/2013 08:45 FBHB [facility] high blood pressure Steve Moy CNP 07/11/2013 09:15 FBHB Lab FBHB Lab 07/11/2013 09:15 FBHB Lab FBHB Lab Attention: Contact your local Clinic if further appointment detail needed. Your Goals/Additional instructions: Source: [facility] POWERCHART Document Id: [id number] Miscellaneous - Chhaya Ramirez - 07/04/2013 3:18 PM CDT Ambulatory Depart Summary [address] [address] Visit Information Name: CARLYLELAZ [facility] Number: [id number] Visit Date: 07/04/2013 15:18:33 Attending Provider: CHHAYA ALLRED Primary Care Provider: STEVE MOY READERS' ADVISORY SERVICE LIBRARIAN LAZ LUNA has been given the following [...] Additional Information: Source: [facility] POWERCHART Document Id: [id number] Miscellaneous - Chhaya Ramirez - 07/04/2013 3:11 PM CDT Adult Eap Counselor Intake/History Adult Eap Counselor Intake/History Entered On: 07/04/2013 15:14 CDT Performed [...] Information Given By : Patient Languages : Mauritanian CHHAYA ALLRED - 07/04/2013 15:11 CDT Subjective [...] None CHHAYA ALLRED 07/04/2013 15:11 CDT Source: [employer] Document Id: [id number] CDT!29 documented in this encounter Plan of Treatment Not on filedocumented as of this encounter Visit Diagnoses Not on filedocumented in this encounter Additional Health Concerns Assessment Noted Time PHQ-9 Depression Total Score: 18 02/14/2013 9:53 AM CD T documented as of this encounter
--- OUTSIDE RECORDS SUMMARY | 2022-08-19 10:36 | XMS_ITS | Encounter Summary ---
:1960 Author Organization [facility] Address [address] [place] [address] Care Team Providers Name Role Phone Unavailable Primary Care Provider Unavailable Encounter Details Date Type Department Care Team Description 03/03/2012 Hospital Encounter HX [facility] LAB Cindy Moy A PRN, C.N.P. [address] [place], [place] [phone] (Wo rk) Social History [...] C.N.P. LAB HISTORICAL ORDERS Performing Organization Address [facility] Phon e Number POWERCHART HX STOOL OCCULT BLOOD - DAY 2 (03/02/2012 8:00 AM CDT) athologist Signature Occult Blood - Negative POWERCHART 2, Fecal Specimen (Source) Anatomical Collection Method Collection Time Re ceived Time Location / / Volume Laterality Stool 03/02/2012 8:00 AM CDT Kalia Grier APRN.N.P. LAB HISTORICAL ORDERS Performing Organization Address [facility] Phon e Number POWERCHART HX STOOL OCCULT BLOOD- DAY 1 (03/01/2012 8:00 AM CDT) athologist Signature HXOccult Bld Negative Negative POWERCHART Stl I Specimen (Source) Anatomical Collection Method Collection Time Re ceived Time Location / / Volume Laterality Stool 03/01/2012 8:00 AM CDT Kalia Grier APRN.N.P. LAB HISTORICAL ORDERS Performing Organization Address [facility] Phon e Number POWERCHART documented in this encounter Visit Diagnoses Not on filedocumented in this encounter
--- OUTSIDE RECORDS SUMMARY | 2022-08-19 10:36 | XMS_ITS | Encounter Summary ---
:1960 Author Organization [facility] Address [address] [place] [address] Care Team Providers Name Role Phone Unavailable [...]
--- OUTSIDE RECORDS SUMMARY | 2022-08-19 10:36 | XMS_ITS | Encounter Summary ---
:1960 Author Organization [facility] Address [address] [place] [address] Care Team Providers Name Role Phone Unavailable Primary Care Provider Unavailable Encounter Details Date Type Department Care Team Description 07/13/2013 Hospital Encounter HX [facility]LT Mehreen Perez, M.S.N., R.N., A.C.N.S.-B.C. [address] [place] [phone] (Wo rk) Social History Tobacco Use [...]
--- OUTSIDE RECORDS SUMMARY | 2022-08-19 10:36 | XMS_ITS | Encounter Summary ---
:1960 Author Organization [facility] Address [address] [place] [address] Care Team Providers Name Role Phone Unavailable Primary Care Provider Unavailable Encounter Details Date Type Department Care Team Description 06/01/2013 Hospital Encounter HX [facility] FBHB FAMILYPRA Bhumi Andrea, HAKEEM, C.N.P. [address] [place] [phone] (Wo rk) Social History Tobacco Use Types [...] APRN, C.N.P. - 06/01/2013 9:20 AM CDT [id number] CHIEF COMPLAINT/REASON FOR VISIT 1. Diabetes type 2, uncontrolled. 2. Hypertension. 3. Hyperlipidemia. 4. Urinary tract infection. 5. Benign prostatic hypertrophy. 6. Urge incontinence. HISTORY OF PRESENT ILLNESS Ed is here for recheck. 1. He has history of diabetes type 2, uncontrolled. He has been working with dietitian in [place]. He has discontinued glimepiride and is now on Victoza, along with 60 units of Lantus. He states he has missed a few doses of Lantus. 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 He states he has been working on weight loss and has lost a few pounds. He is hoping to undergo bariatric surgery. He has some classes he needs to attend in [place] andthen will be scheduling followup at [place] again. He is due for A1c today. [...] the dietitian and will be following with [place] in preparation for bariatric surgery. 2. Hypertension [...] ANDREA CNP On: 06/01/2013 03:13 PM Source: [facility] MHSDOLBEYNONRADSYS Document Id: [id number] documented in this encounter Miscellaneous Notes Miscellaneous - Hank Villafana L.P.NPili - 06/24/2013 10:21 AM CDT Colorectal cancer screening reminder Document Contains Addenda Addendum by MARY DIAZ LPN on 24 May 2014 15:50:32 CDT No longer a patient at [facility]. Addendum by MARCIAL CHAVEZ LPN on 24 [...] Patient ( ) ( ) Call for Motorcycle Designer ( ) Follow up on Results ( ) Other: PROVIDER: ( ) Call Physician ( ) Call Pharmacist ( ) Call Lab ( ) Other: Special Instructions: Comments: Source: [facility] Document Id: [id number] Electronically signed by Conversion, [facility] It Business Systems Analyst [id number] at 02/04/2017 9:52 PM CDT Miscellaneous - Steve Andrea APRN, C.N.P. - 06/01/2013 10:36 AM CDT Schedule Follow-Up Visit 01 June 2013 ED CARLYLE [address] [place] [address] [place] [phone] Dear NOEMÍ LUNA, Thank you for choosing [facility] for your health care needs. You [...] - 6.0 Sincerely, STEVE ANDREA [address] [place] [address] Electronic Signature Electronically Signed By: STEVE ANDREA CNP On: 01 June 2013 This document has images extracted. Source: [facility] Document Id: [id number] Electronically signed by Conversion, [facility] It Business Systems Analyst [id number] at 02/04/2017 9:52 PM CDT Miscellaneous - Steve Andrea APRN, C.N.P. - 06/01/2013 10:03 AM CDT Ambulatory Patient Summary [address] [facility] [place] [address] Visit Information Name: NOEMÍ LUNA [facility] Number: [id number] Current Date: 06/01/2013 10:03:46 Physicians [...] Chhaya Campos RD Your Goals/Additional instructions: Source: [facility] POWERCHART Document Id: [id number] Miscellaneous - Steve Andrea APRN, C.N.P. - 06/01/2013 10:03 AM CDT Ambulatory Depart Summary [address] [address] Visit Information Name: CARLYLE NOEMÍ [facility] Number: [id number] Visit Date: 06/01/2013 10:03:45 Attending Provider: STEVE ANDREA CNP Primary Care Provider: STEVE ANDREA PROFESSIONAL SHOPPER NOEMÍ LUNA has been given the following [...] your provider for clarification. Additional Information: Source: [facility] POWERCHART Document Id: [id number] Miscellaneous - Marcial Chavez, LPiliPPiliN. - 06/01/2013 9:29 AM CDT Adult Service Delivery Consultant Intake/History Adult Service Delivery Consultant Intake/History Entered On: 06/01/2013 9:31 CDT Performed [...] Information Given By : Patient Languages : Sri Lankan MARCIAL CHAVEZ - 06/01/2013 9:29 CDT Subjective [...] MARCIAL CHAVEZ - 06/01/2013 9:29 CDT Source: [employer] Document Id: [id number] CDT!29 Miscellaneous - Steve Andrea APRN, C.N.P. - 05/28/2013 10:10 AM CDT Quality Measures Quality Measures Entered On: 06/01/2013 10:10 CDT Performed On: 05/28/2013 10:10 CDT by STEVE ANDREA CNP Labs Outside Lab Creatinine (Serum) : 1.07 mg/dL Outside Lab Report Location : Scanned into EMR STEVE ANDREA CNP - 06/01/2013 10:10 CDT Source: [employer] Document Id: [id number] CDT!4 documented in this encounter Plan of [...] See POWERCHART scanned/paper report. Test performed at [facility]. Specimen (Source) Anatomical Collection Method Collection [...]
--- OUTSIDE RECORDS SUMMARY | 2022-08-19 10:36 | XMS_ITS | Encounter Summary ---
:1960 Author Organization [facility] Address [address] [place] [address] Care Team Providers Name Role Phone Unavailable Primary Care Provider Unavailable Encounter Details Date Type Department Care Team Description 06/01/2013 Hospital Encounter HX [facility] FB FAMILYPRA Rosangela Vieira M.D. [address] [facility], [address] [place], [place] [address] (Wo rk) Social History [...] Vieira M.D. - 06/01/2013 8:44 AM CDT [id number] CHIEF COMPLAINT/REASON FOR VISIT Genital warts. 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 - 06/01/2013 9:25 AM CDT Ambulatory Patient Summary [place] [address] [facility] [place] [address] Visit Information Name: NOEMÍ LUNA [facility] Number: [id number] Current Date: 06/01/2013 09:25:12 Physicians Attending Provider: MARILUZ VIEIRA MD Primary Care Provider: STEVE ANDREA INDUSTRIAL SERVICES WORKER Your Medications Here is a list of [...] day to help prevent tinea pedis. Source: [facility] POWERCHART Document Id: [id number] Miscellaneous - Mariluz Vieira M.D. - 06/01/2013 9:25 AM CDT Ambulatory Depart [place] [address] [place] [address] Visit Information Name: NOEMÍ LUNA [facility] Number: [id number] Visit Date: 06/01/2013 09:25:11 Attending Provider: MARILUZ VIEIRA MD Primary Care Provider: STEVE ANDREA INDUSTRIAL SERVICES WORKER NOEMÍ LUNA has been given the following [...] your provider for clarification. Additional Information: Source: [facility] POWERCHART Document Id: [id number] Miscellaneous - Ynes Dia L.P.N. - 06/01/2013 8:53 AM CDT Adult Sausage Meat Trimmer Intake/History Adult Sausage Meat Trimmer Intake/History Entered On: 06/01/2013 8:54 CDT [...] Information Given By : Patient Languages : Sammarinese YNES DIA - 06/01/2013 8:53 CDT Subjective [...] YNES DIA - 06/01/2013 8:53 CDT Source: [facility] POWERCHART Document Id: [id number] CDT!34 documented in this encounter Plan of Treatment Not on filedocumented as of this encounter Visit Diagnoses Not on filedocumented in this encounter Additional Health Concerns Assessment Noted Time PHQ-9 Depression Total Score: 18 02/14/2013 9:53 AM CD T documented as of this encounter
--- OUTSIDE RECORDS SUMMARY | 2022-08-19 10:36 | XMS_ITS | Encounter Summary ---
:1960 Author Organization [facility] Address [address] [place] [address] Care Team Providers Name Role Phone Unavailable [...]
--- OUTSIDE RECORDS SUMMARY | 2022-08-19 10:36 | XMS_ITS | Encounter Summary ---
:1960 Author Organization [facility] Address [address] [place] [address] Care Team Providers Name Role Phone Unavailable Primary Care Provider Unavailable Encounter Details Date Type Department Care Team Description 07/11/2013 Hospital Encounter HX [facility] LAB Cindy Moy, Soumya PRN, C.N.P. [address] [place], [place] [phone] (Wo rk) Social History Tobacco Use Types Packs/Day Years Used Date Smoking Tobacco: Never Assessed Sex Assigned at Date Recorded Not on file documented as of this encounter Plan of Treatment Not on filedocumented as of this encounter Procedures Procedure Name Priority Date/Time Associated Diagnosis Comme nts LIPID PANEL, S Routine 07/11/2013 9:41 AM Results for this BATCH ATTENDANT procedure are i n the results section. BASIC METABOLIC Routine 07/11/2013 9:41 AM Result s for this PANEL, S/P BATCH ATTENDANT procedure are i n the results section. documented in this encounter Results (ABNORMAL) BMP (Basic Metabolic Panel) (07/11/2013 9:41 AM BATCH ATTENDANT) P athologist Signature BUN (Blood Urea 20 [...] / Volume Laterality Blood 07/11/2013 9:41 AM BATCH ATTENDANT Cindy Moy APRN, C.N.P. LAB BLOOD ADD-ON Performing Organization Address City/State/ZIP Code Phon e Number POWERCHART Lipid Panel (07/11/2013 9:41 AM BATCH ATTENDANT) [facility] Time Signature Cholesterol, Total 135 0 - 200 POWERCHART MGDL HX HDL 46.0 40.0 - POWERCHART 60.0 MGDL Triglycerides 145 0 - 150 POWERCHART MGDL Calculated LDL 60 0 - 100 POWERCHART MGDL Specimen (Source) Anatomical Collection Method Collection Time Re ceived Time Location / / Volume Laterality Blood 07/11/2013 9:41 AM BATCH ATTENDANT Cindy Moy APRN, C.N.P. LAB BLOOD ADD-ON Performing Organization Address City/State/ZIP Code Phon e Number POWERCHART documented in this encounter Visit Diagnoses Not on filedocumented in this encounter Additional Health Concerns Assessment Noted Time PHQ-9 Depression Total Score: 18 02/14/2013 9:53 AM CD T documented as of this encounter
--- OUTSIDE RECORDS SUMMARY | 2022-08-19 10:36 | XMS_ITS | Encounter Summary ---
:1960 Author Organization [facility] Address [address] [place] [address] Care Team Providers Name Role Phone Unavailable Primary Care Provider Unavailable Encounter Details Date Type Department Care Team Description 11/18/2011 Hospital Encounter HX [facility] FBHB FAMILYPRA Bhumi Andrea, HAKEEM, C.N.P. [address] [place] [phone] (Wo rk) Social History Tobacco Use Types [...] APRN, C.N.P. - 11/18/2011 12:00 AM CDT [id number] CHIEF COMPLAINT/ REASON FOR VISIT 1. 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 He will continue with Byetta injections twice [...] 3 months SJM/clf Signed Steve Andrea, MSN, URBAN FORESTER, CDE Family Nurse Practitioner Electronically Signed By: STEVE ANDREA CNP On: 11/19/2011 09:04 AM Source: [facility] MHSDOLBEYNONRADSYS Document Id: [id number] documented in this encounter Nursing Notes Steve Andrea APRN, C.N.P. - 11/18/2011 9:28 AM CDT Ruling Machine Operator Intake (Adult) Ruling Machine Operator Intake (Adult) Entered On: 11/18/2011 9:30 CDT [...] STEVE ANDREA - 11/18/2011 9:28 CDT Source: [employer] Document Id: [id number] CDT!42 documented in this encounter Miscellaneous Notes Miscellaneous - Steve Andrea APRN, C.N.P. - 11/18/2011 9:41 AM CDT Ambulatory Patient Summary [address] [address] Visit Information Name: NOEMÍ LUNA Current Date: [...] Appointments found Your Goals/Additional instructions: Source: [facility] POWERCHART Document Id: [id number] Miscellaneous - Steve Andrea APRN, C.N.P. - 11/18/2011 9:41 AM CDT Ambulatory Depart Summary [address] [address] Visit Information Name: NOEMÍ LUNA Visit Date: [...] provider for clarification. Additional Information: Source: [facility] POWERCHART Document Id: [id number] Miscellaneous - Steve Andrea APRN, C.N.P. - 11/18/2011 9:40 AM CDT Quality Measures Quality Measures Entered On: 11/18/2011 9:40 CDT Performed On: 11/18/2011 9:40 CDT by STEVE ANDREA CNP Diabetes Date of Last Foot Exam : 11/18/2011 CDT Date of Last Diabetes Education : 11/18/2011 CDT STEVE ANDREA [facility] - 11/18/2011 9:40 CDT Foot Exam Grid Left foot exam Right foot exam Dorsalis Pedis Pulse : Normal Normal Capillary Refill : Less than 3 seconds Less than 3 seconds 10 gm Monofilament Sensation Check : Intact Intact STEVE ANDREA Jim [facility] - 11/18/2011 9:40 CDT STEVE ANDREA [facility] - 11/18/2011 9:40 CDT Source: [facility] POWERCHART Document Id: [id number] CDT!13 Miscellaneous - Marcial Chavez L.P.N. - [...] explanation MARCIAL CHAVEZ 11/18/2011 9:08 CDT Source: [facility] POWERCHART Document Id: [id number] CDT!28 Miscellaneous - Marcial Chavez L.P.N. - 11/18/2011 9:04 AM CDT Adult Master Of Ceremonies Intake/History Adult Master Of Ceremonies Intake/History Entered On: 11/18/2011 9:07 CDT Performed [...] CNP; Reviewed Date: 12/05/2010 10:10 CDT Source: [facility] [employer]CH[employer] Document Id: [id number] CDT!27 documented in this encounter Plan of [...]
--- OUTSIDE RECORDS SUMMARY | 2022-08-19 10:36 | XMS_ITS | Encounter Summary ---
:1960 Author Organization [facility] Address [address] [place] [address] Care Team Providers Name Role Phone Unavailable Primary Care Provider Unavailable Encounter Details Date Type Department Care Team Description 07/26/2013 Hospital Encounter HX [facility] BE[facility] HLT Mehreen Perez, M.S.N., R.N., A.C.N.S.-B.C. [address] [place] [phone] (Wo rk) Social History Tobacco Use [...]
--- OUTSIDE RECORDS SUMMARY | 2022-08-19 10:36 | XMS_ITS | Encounter Summary ---
:1960 Author Organization [facility] Address [address] [place] [address] Care Team Providers Name Role Phone Unavailable Primary Care Provider Unavailable Encounter Details Date Type Department Care Team Description 07/12/2013 Hospital Encounter HX [facility] INTERNMED Aranza Ramirez P.AJoby [address] [place] [phone] (Wo rk) Social History Tobacco Use Types Packs/Day Years Used Date Smoking Tobacco: Never Assessed Sex Assigned at Date Recorded Not on file documented as of this encounter Nursing Notes Chhaya Ramirez - 07/12/2013 12:00 AM CST [id number] CHIEF COMPLAINT/REASON FOR VISIT Medical Nutrition Therapy [...] from the room and proceeded to get tool machine shop supervisor, Jeovanny Jansen M.D. After discussion with Dr. Jansen, Dr. Jansen had a discussion with the patient regarding his inappropriateness. Education session was, therefore, terminated and there was no further time spent with patient. ADMINISTRATIVE BILLING Total Time: Approximately 5 minutes. Chhaya Allred R.D., L.D./sweetie Electronically Signed By: CHHAYA ALLRED On: 07/13/2013 03:41 PM Source: [facility] MHSDOLBEYNONRADSYS Document Id: [id number] TRUCK DRIVER documented in this encounter Plan of Treatment Not on filedocumented as of this encounter Visit Diagnoses Not on filedocumented in this encounter Additional Health Concerns Assessment Noted Time PHQ-9 Depression Total Score: 18 02/14/2013 9:53 AM CD T documented as of this encounter
--- OUTSIDE RECORDS SUMMARY | 2022-08-19 10:36 | XMS_ITS | Encounter Summary ---
:1960 Author Organization [facility] Address [address] [place] [address] Care Team Providers Name Role Phone Unavailable Primary Care Provider Unavailable Encounter Details Date Type Department Care Team Description 05/02/2013 Hospital Encounter HX [facility] OWOC INTERNMED Aranza Ramirez PPiliAPili-Kelvin [address] [place] [phone] (Wo rk) Social History Tobacco Use Types [...] Chhaya Ramirez - 05/02/2013 12:00 AM CDT [id number] CHIEF COMPLAINT / REASON FOR VISIT Medical [...] program. He states he sees someone in [place] tomorrow. He refuses to chew food to [...] dated 05/02/2013. No changes. 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 TOBACCO USE: None. ALCOHOL USE: [...] CHHAYA ALLRED On: 05/05/2013 10:38 AM Source: [facility] MHSDOLBEYNONRADSYS Document Id: [id number] documented in this encounter Miscellaneous Notes Miscellaneous - Chhaya Ramirez - 05/02/2013 8:38 AM CDT Ambulatory Patient Summary [facility] [address] [place] [address] Visit Information Name: LAZ LUNA [facility] Number: [id number] Current Date: 05/02/2013 08:38:46 Physicians Attending Provider: CHHAYA ALLRED Primary Care Provider: STEVE ANDREA OILSEED MEAT PRESSER Your Medications Here is a list of [...] No Appointments found Your Goals/Additional instructions: Source: [facility] POWERCHART Document Id: [id number] Miscellaneous - Chhaya Ramirez - 05/02/2013 8:38 AM CDT Ambulatory Depart Summary [facility] [address] [place] [address] Visit Information Name: LAZ LUNA [facility] Number: [id number] Visit Date: 05/02/2013 08:38:45 Attending Provider: CHHAYA ALLRED Primary Care Provider: STEVE ANDREA OILSEED MEAT PRESSER LAZ LUNA has been given the following [...] your provider for clarification. Additional Information: Source: [facility] POWERCHART Document Id: [id number] Miscellaneous - Chhaya Ramirez - 05/02/2013 8:34 AM CDT Adult Opto Mechanical Engineer Intake/History Adult Opto Mechanical Engineer Intake/History Entered On: 05/02/2013 8:36 CDT Performed [...] Information Given By : Patient Languages : Tongan CHALINO CHHAYA Fernandez 05/02/2013 8:34 CDT Subjective [...] None CHHAYA ALLRED 05/02/2013 8:34 CDT Source: [facility] Document Id: [id number] CDT!34 documented in this encounter Plan of Treatment Not on filedocumented as of this encounter Visit Diagnoses Not on filedocumented in this encounter Additional Health Concerns Assessment Noted Time PHQ-9 Depression Total Score: 18 02/14/2013 9:53 AM CD T documented as of this encounter
--- OUTSIDE RECORDS SUMMARY | 2022-08-19 10:36 | XMS_ITS | Encounter Summary ---
:1960 Author Organization [facility] [place] [facility] Address [address] [place] [address] Care Team Providers Name Role Phone Unavailable Primary Care Provider Unavailable Encounter Details Date Type Department Care Team Description 11/18/2012 Hospital Encounter HX [facility] FBHB FAMILYPRA Bhumi Andrea, HAKEEM, C.N.P. [address] [place] [phone] (Wo rk) Social History Tobacco Use Types [...] APRN, C.N.P. - 11/18/2012 12:56 PM CDT [id number] CHIEF COMPLAINT/REASON FOR VISIT 1. Diabetes type II, uncontrolled 2. Hypertension 3. Hyperlipidemia 4. Urge incontinence 5. Right hip pain HISTORY OF PRESENT ILLNESS 1. Ed is here for a recheck. He has history of diabetes type II, uncontrolled. He did have A1c drawntoday, it is extremely high at 10.7. He wanted to discuss gastric bypass again today. He was scheduled at [place], but canceled the appointment. He is now [...] Urology back. He has a urologist in [place] that he has seen in the past and he will call for an appointment with her again. 5. Right hip pain. X-ray of the right hip is negative. If symptoms continue, we will have him see physical therapy. Steve Andrea CNP/jostin DOCID: [id number] Electronically Signed By: STEVE ANDREA CNP On: 11/21/2012 04:27 PM Source: [facility] MHSDOLBEYNCONYS Document Id: [id number] documented in this encounter Nursing Notes Steve Andrea APRN, C.N.P. - 11/18/2012 1:24 PM CDT Event Specialist Product Demonstrator Intake (Adult) Event Specialist Product Demonstrator Intake (Adult) Entered On: 11/18/2012 13:30 CDT [...] ANDREA CNP - 11/18/2012 13:24 CDT [facility] Document Id: [id number] documented in this encounter Miscellaneous Notes Miscellaneous - Steve Andrea APRN, C.N.P. - 11/18/2012 4:42 PM CDT Ambulatory Patient Summary [address] [address] Visit Information Name: NOEMÍ LUNA [facility] [place] [facility] Number: [id number] Current Date: 11/18/2012 16:42:37 [...] No Appointments found Your Goals/Additional instructions: Source: [facility] POWERCHART Document Id: [id number] Miscellaneous - Steve Andrea APRN, C.N.P. - 11/18/2012 4:42 PM CDT Ambulatory Depart Summary [place] [id number] [facility] [place] [address] Visit Information Name: NOEMÍ LUNA [facility] [place] [facility] Number: [id number] Visit Date: 11/18/2012 16:42:36 [...] your provider for clarification. Additional Information: Source: [facility] POWERCHART Document Id: [id number] Miscellaneous - Steve Andrea APRN, C.N.P. - [...] ANDREA CNP - 11/18/2012 13:21 CDT Source: [facility] Document Id: [id number] Miscellaneous - Marcial Chavez L.P.N. - 11/18/2012 [...] MARCIAL FLOYD - 11/18/2012 13:08 CDT Source: [facility] [employer] Document Id: [id number] Miscellaneous - Marcial Chavez L.PPiliNPili - 11/18/2012 1:04 PM CDT Adult Die Repair Intake/History Adult Die Repair Intake/History Entered On: 11/18/2012 13:07 CDT Performed [...] Information Given By : Patient Languages : Jamaican SCOTT MARCIAL FLOYD - 11/18/2012 13:04 CDT [...] STEVE ANDREA CNP; Reviewed Date: 07/14/2012 14:13 DISTRIBUTION OPERATION SUPERVISOR Influenza Virus Vaccine Estimated Onset Date: Unspecified ; Reactions: diarrhea ; Created By: STEVE ANDREA CNP; Reaction Status: Active ; Category: Drug ; Substance: Influenza Virus Vaccine ; Type: Intolerance ; Updated By: STEVE ANDREA CNP; Reviewed Date: 07/14/2012 14:13 DISTRIBUTION OPERATION SUPERVISOR Source: [facility] [employer] Document Id: [id number] documented in this encounter Plan of Treatment [...] Includes Microscopic (11/18/2012 2:04 PM CDT) [facility] gist Method Time Signature Protein, Ur, Dip >=300 (A) Negative POWERCHART Source Clean Void POWERCHART Urine HXUr Color Yellow POWERCHART Appearance Clear POWERCHART Glucose >=1000 (A) Negative POWERCHART HXBILIRUBIN Negative Negative POWERCHART Ketones, QL(U) Negative Negative POWERCHART Specific 1.025 (A) 1.020 POWERCHART [place], POCT, U pH, POCT, Urine 6.5 5.0 [...] absence of malignant disease. Test Performed by: [place] [address] Time Checker: Benji roper III, M.D. Specimen (Source) Anatomical Collection Method Collection Time Re ceived Time Location / / Volume Laterality Blood 11/18/2012 1:43 PM CDT Steve Andrea APRN C.N.P. LAB BLOOD ADD-ON Performing Organization Address City/State/ZIP Code Phon e Number POWERCHART documented in this encounter Visit Diagnoses Not on filedocumented in this encounter
--- OUTSIDE RECORDS SUMMARY | 2022-08-19 10:36 | XMS_ITS | Encounter Summary ---
:1960 Author Organization [facility] Address [address] [place] [address] Care Team Providers Name Role Phone Unavailable Primary Care Provider Unavailable Encounter Details Date Type Department Care Team Description 06/28/2013 Hospital Encounter HX [facility] HLT Mehreen Perez, M.S.N., R.N., A.C.N.S.-B.C. [address] [place] [phone] (Wo rk) Social History Tobacco Use [...]
--- OUTSIDE RECORDS SUMMARY | 2022-08-19 10:36 | XMS_ITS | Encounter Summary ---
:1960 [facility] Address [address] [place] [address] Care Team Providers Name Role Phone Unavailable Primary Care Provider Unavailable Encounter Details Date Type Department Care Team Description 07/30/2011 Hospital Encounter HX [facility] FB NURSE ONL Bhumi Moy, FACILITY SUPERVISOR, C.N.P. [address] [place] [phone] (Wo rk) Social History Tobacco Use Types Packs/Day Years Used Date Smoking Tobacco: Never Assessed Sex Assigned at Date Recorded Not on file documented as of this encounter Miscellaneous Notes Miscellaneous - Samantha Grayson, L.P.N. - 07/30/2011 11:55 AM CST Ambulatory Vitals Height Weight Ambulatory Vitals Height Weight Entered On: 07/30/2011 11:55 GEOTHERMAL POWERPLANT MECHANIC HELPER Performed On: 07/30/2011 11:55 GEOTHERMAL POWERPLANT MECHANIC HELPER by SAMANTHA GRAYSON Vitals/Ht/Wt Systolic Blood Pressure : 132mmHg Diastolic Blood Pressure : 82mmHg NIBP Mean : 99mmHg SAMANTHA GRAYSON - 07/30/2011 11:55 GEOTHERMAL POWERPLANT MECHANIC HELPER Source: [facility] POWERCHART Document Id: [id number] GEOTHERMAL POWERPLANT MECHANIC HELPER!5 HERMAL POWERPLANT MECHANIC HELPER documented in this encounter Plan of Treatment Not on filedocumented as of this encounter Visit Diagnoses Not on filedocumented in this encounter
--- OUTSIDE RECORDS SUMMARY | 2022-08-19 10:36 | XMS_ITS | Encounter Summary ---
:1960 Author Organization [facility] Address [address] [place] [address] Care Team Providers Name Role Phone Unavailable [...]
--- OUTSIDE RECORDS SUMMARY | 2022-08-19 10:36 | XMS_ITS | Encounter Summary ---
:1960 Author Organization [facility] Address [address] [place] [address] Care Team Providers Name Role Phone Unavailable Primary Care Provider Unavailable Encounter Details Date Type Department Care Team Description 2013 Hospital Encounter [facility]X [facility] Steve Andrea, Soumya PRN, C.N.P. [address] [place], [place] [phone] (Wo rk) Social History Tobacco Use Types Packs/Day Years Used Date Smoking Tobacco: Never Assessed Sex Assigned at Date Recorded Not on file documented as of this encounter Miscellaneous Notes Miscellaneous - Steve Andrea, ELEMENTARY CLASSROOM TEACHER, C.N.P. - 06/23/2013 10:56 AM CDT Normal Results Letter 23 June 2013 ED CARLYLE [address] [facility] [address] [facility] [id number] Dear ED CARLYLE, I am pleased to report that your results from the following diagnostic test(s) are normal. Please follow up with us as we discussed during your visit or sooner if you have any concerns. If you have questions or concerns, please do not hesitate to call our office. Result Name Current Result Normal Range FIT/Fecal Occult Bld-Wiota Negative 2013 Negative - Sincerely, STEVE ANDREA [address] [place] [address] Electronic Signature Electronically Signed By: STEVE ANDREA CNP On: 23 June 2013 This document has images extracted. Source: [facility] POWERCHART Document Id: [id number] Electronically signed by Conversion, [facility] Guest Service Manager [id number] at 02/04/2017 2:42 AM CDT documented in [...] ordered if clinically indicated. Test Performed by: [place] [address] Insurance Verifier: Benji roper III, M.D. Specimen (Source) Anatomical [...]
--- OUTSIDE RECORDS SUMMARY | 2022-08-19 10:36 | XMS_ITS | Encounter Summary ---
:1960 Author Organization [facility] Address [address] [place] [address] Care Team Providers Name Role Phone Unavailable [...]
--- OUTSIDE RECORDS SUMMARY | 2022-08-19 10:36 | XMS_ITS | Encounter Summary ---
:1960 Author Organization [facility] Address [address] [place] [address] Care Team Providers Name Role Phone Unavailable [...]
--- OUTSIDE RECORDS SUMMARY | 2022-08-19 10:36 | XMS_ITS | Encounter Summary ---
:1960 Author Organization [facility] Address [address] [place] [address] Care Team Providers Name Role Phone Unavailable Primary Care Provider Unavailable Encounter Details Date Type Department Care Team Description 03/03/2012 Hospital Encounter HX [facility] FBHB FAMILYPRA Bhumi Andrea, HAKEEM, C.N.P. [address] [place] [phone] (Wo rk) Social History Tobacco Use Types [...] APRN, C.N.P. - 03/03/2012 12:00 AM CDT [id number] CHIEF COMPLAINT/REASON FOR VISIT Mattery eyes, sinus [...] improve. SJM/sks Signed Steve Fernandez. Farzaneh, MSN, PLATE GLASS GRINDER, CDE Family Nurse Practitioner Electronically Signed By: STEVE ANDREA PLATE GLASS GRINDER On: 03/08/2012 07:50 AM Source: [facility] MHSDOLBEYNONRADSYS Document Id: [id number] documented in this encounter Miscellaneous Notes Miscellaneous [...] Patient ( ) ( ) Call for Physical Ther ( ) Follow up on Results ( ) Other: PROVIDER: ( ) Call Physician ( ) Call Pharmacist ( ) Call Lab ( ) Other: Special Instructions: Comments: Source: [facility] POWERCHART Document Id: [id number] Miscellaneous - Steve Andrea APRN, C.N.P. - 03/03/2012 1:34 PM CDT Ambulatory Depart Summary [address] [address] Visit Information Name: CARLYLE, ED Visit Date: [...] your provider for clarification. Additional Information: Source: [facility] POWERCHART Document Id: [id number] Miscellaneous - Steve Andrea APRN, C.N.P. - 03/03/2012 1:34 PM CDT Ambulatory Patient Summary [address] [address] Visit Information Name: CARLYLE NOEMÍ Current Date: [...] Provider 05/20/2012 09:00 FBHB Lab 05/20/2012 09:30 [facility] Diabetes recheck Steve Andrea CNP Your Goals/Additional instructions: Source: [facility] POWERCHART Document Id: [id number] Miscellaneous - Marcial Chavez L.P.N. - 03/03/2012 1:07 PM CDT Adult Data Keyer Intake/History Adult Data Keyer Intake/History Entered On: 03/03/2012 13:09 CDT Performed [...] CNP; Reviewed Date: 02/19/2012 9:51 CDT Source: [facility] POWERCHART Document Id: [id number] documented in this encounter Plan of Treatment Not on filedocumented as of this encounter Visit Diagnoses Not on filedocumented in this encounter
--- OUTSIDE RECORDS SUMMARY | 2022-08-19 10:36 | XMS_ITS | Encounter Summary ---
:1960 Author Organization [facility] Address [address] [place] [address] Care Team Providers Name Role Phone Unavailable Primary Care Provider Unavailable Encounter Details Date Type Department Care Team Description 07/26/2013 Hospital Encounter HX [facility] Marino Larios P.A.-C., P.A. [address] [place] [phone] (Wo rk) Social History Tobacco Use Types Packs/Day Years Used Date Smoking Tobacco: Never Assessed Sex Assigned at Date Recorded Not on file documented as of this encounter Last Filed Vital Signs Vital Sign Reading Time Taken Comments Blood Pressure 172/93 07/26/2013 11:50 AM MILL OPERATOR HELPER Pulse 56 07/26/2013 11:01 AM MILL OPERATOR HELPER Temperature - - Respiratory Rate 14 07/26/2013 11:01 AM MILL OPERATOR HELPER Oxygen Saturation - - Inhaled Oxygen Concentration - - Weight 153 kg (337 lb 8.4 oz) 07/26/2013 11:01 AM MILL OPERATOR HELPER Height 183 cm (6' 0.05) 07/26/2013 11:01 AM MILL OPERATOR HELPER Body Mass Index 45.72 07/26/2013 11:01 AM MILL OPERATOR HELPER documented in this encounter Progress Notes Dyan Larios - 07/26/2013 10:45 AM CST [id number] CHIEF COMPLAINT/REASON FOR VISIT This is a 53-year-old male seen today new to our clinic after having recently been fired from the [facility] and [employer] [facility]. HISTORY OF PRESENT ILLNESS He states that he has been going through a program through the bariatric clinic in [place] to get set up for gastric bypass. He had a meeting with a dietitian and that is when the problem started. Hestates that he did not get along with the dietitian in [place]. He does have one dietitian visit left of his 6 and he actually states that he has this scheduled in [place] and plans to follow up down there for that tomorrow. He also sees someone in behavioral health for something similar to the LE[facility] Program. This is in [place] most recently he has been having some [...] DYAN LARIOS On: 08/02/2013 09:44 AM Source: [facility] MHSDOLBEYNONRADSYS Document Id: [id number] OPERATOR HELPER documented in this encounter Miscellaneous Notes Miscellaneous - Dyan Larios - 07/26/2013 12:15 PM CST Ambulatory Patient Summary [address] [address] Visit Information Name: LAZ LUNA [facility] Number: [id number] Current Date: 07/26/2013 12:15:01 Physicians [...] appointment detail needed. Your Goals/Additional instructions: Source: [facility] POWERCHART Document Id: [id number] OPERATOR HELPER Miscellaneous - Dyan Larios - 07/26/2013 12:15 PM CST Ambulatory Depart Summary [address] [address] Visit Information Name: LAZ LUNA [facility] Number: [id number] Visit Date: 07/26/2013 12:15:00 Attending [...] your provider for clarification. Additional Information: Source: [facility] [email or web address] Document Id: [id number] OPERATOR HELPER Lulycellwalter - Tali Torres L.P.N. - 07/26/2013 11:50 AM CST Ambulatory Vitals Height Weight Ambulatory Vitals Height Weight Entered On: 07/26/2013 11:51 MILL OPERATOR HELPER Performed On: 07/26/2013 11:50 MILL OPERATOR HELPER by TALI TORRES Vitals/Ht/Wt Systolic Blood Pressure : 172 mmHg (>HHI) Diastolic Blood Pressure : 93 mmHg (>HHI) NIBP Mean : 119 mmHg BP Location : Right upper extremity Blood Pressure Cuff Size : Large TALI TORRES - 07/26/2013 11:50 MILL OPERATOR HELPER Source: [facility] [email or web address] Document Id: [id number] MILL OPERATOR HELPER!7 OPERATOR HELPER Lulycellwalter - Tali Torres L.P.N. - 07/26/2013 11:01 AM CST Adult Airways Operations Specialist Intake/History Adult Airways Operations Specialist Intake/History Entered On: 07/26/2013 11:07 MILL OPERATOR HELPER Performed On: 07/26/2013 11:01 MILL OPERATOR HELPER by TALI TORRES Intake Chief Complaint : [...] 45.72 kg/m2 TALI TORRES - 07/26/2013 11:01 MILL OPERATOR HELPER General Info Information Given By : Patient Languages : Slovenian TALI TORRES - 07/26/2013 11:01 MILL OPERATOR HELPER Subjective Pain Symptoms : No TALI TORRSE - 07/26/2013 11:01 MILL OPERATOR HELPER Dependent Habits Tobacco Use/Currently Using : No Smoking Status : Never smoker Alcohol Use : No TALI TORRES - 07/26/2013 11:01 MILL OPERATOR HELPER Source: [employer] Document Id: [id number] MILL OPERATOR HELPER!27 OPERATOR HELPER documented in this encounter Plan of Treatment Not on filedocumented as of this encounter Visit Diagnoses Not on filedocumented in this encounter Additional Health Concerns Assessment Noted Time PHQ-9 Depression Total Score: 18 02/14/2013 9:53 AM CD T documented as of this encounter
--- OUTSIDE RECORDS SUMMARY | 2022-08-19 10:36 | XMS_ITS | Encounter Summary ---
:1960 Author Organization [facility] Address [address] [place] [address] Care Team Providers Name Role Phone Unavailable Primary Care Provider Unavailable Encounter Details Date Type Department Care Team Description 02/19/2012 Hospital Encounter HX [facility] FBHB FAMILYPRA Bhumi Andrea, HAKEEM, C.N.P. [address] [place] [phone] (Wo rk) Social History Tobacco Use Types [...] APRN, C.N.P. - 02/19/2012 12:00 AM CDT [id number] CHIEF COMPLAINT/ REASON FOR VISIT 1. 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 He again talked about gastric bypass today [...] 3 months SJM/clf Signed Steve Andrea, MSN, BUTTERMAKER CONTINUOUS CHURN, CDE Family Nurse Practitioner Electronically Signed By: STEVE ANDREA CNP On: 02/19/2012 12:02 PM Source: [facility] MHSDOLBEYNONRADSYS Document Id: [id number] documented in this encounter Miscellaneous Notes Miscellaneous - Steve Andrea APRN, C.N.P. - 02/19/2012 9:51 AM CDT Ambulatory Patient Summary [address] [address] Visit Information Name: LAZ LUNA Current Date: [...] No Appointments found Your Goals/Additional instructions: Source: [facility] [employer] Document Id: [id number] Miscellaneous - Steve Andrea APRN, C.N.P. - 02/19/2012 9:51 AM CDT Ambulatory Depart Summary [address] [address] Visit Information Name: LAZ LUNA Visit Date: [...] your provider for clarification. Additional Information: Source: [facility] POWERCHART Document Id: [id number] Miscellaneous - Samantha Chavez L.P.N. - 02/19/2012 9:35 AM CDT Ambulatory Vitals Height Weight Ambulatory Vitals Height Weight Entered On: 02/19/2012 9:36 CDT Performed On: 02/19/2012 9:35 CDT by SAMANTHA CHAVEZ Vitals/Ht/Wt Systolic Blood Pressure : 144mmHg (HI) Diastolic Blood Pressure : 86mmHg NIBP Mean : 105mmHg SAMANTHA CHAVEZ - 02/19/2012 9:35 CDT Source: [facility] POWERCHART Document Id: [id number] Miscellaneous - Samantha Chavez L.P.N. - 02/19/2012 9:32 AM CDT Adult Adult Parole Officer Intake/History Adult Adult Parole Officer Intake/History Entered On: 02/19/2012 9:34 CDT Performed [...] CNP; Reviewed Date: 12/05/2010 10:10 CDT Source: [facility] [employer] Document Id: [id number] documented in this encounter Plan of Treatment Not on filedocumented as of this encounter Visit Diagnoses Not on filedocumented in this encounter
--- OUTSIDE RECORDS SUMMARY | 2022-08-19 10:37 | XMS_ITS | Encounter Summary ---
:1960 Author Organization [facility] Address [address] [place] [address] Care Team Providers Name Role Phone Unavailable Primary Care Provider Unavailable Encounter Details Date Type Department Care Team Description 03/31/2011 Hospital Encounter [facility]X [facility] Vishal Suarez Jr., M.D. [address] [place] [phone] (Wo rk) Social History Tobacco Use Types Packs/Day Years Used Date Smoking Tobacco: Never Assessed Sex Assigned at Date Recorded Not on file documented as of this encounter Plan of Treatment Not on filedocumented as of this encounter Visit Diagnoses Not on filedocumented in this encounter
--- OUTSIDE RECORDS SUMMARY | 2022-08-19 10:37 | XMS_ITS | Encounter Summary ---
:1960 Author Organization [facility] Address [address] [place] [address] Care Team Providers Name Role Phone Unavailable Primary Care Provider Unavailable Encounter Details Date Type Department Care Team Description 07/24/2011 Hospital Encounter HX [facility] LAB Cindy Moy, Soumya PRN, C.N.P. [address] [place], [place] [phone] (Wo rk) Social History Tobacco Use Types Packs/Day Years Used Date Smoking Tobacco: Never Assessed Sex Assigned at Date Recorded Not on file documented as of this encounter Plan of Treatment Not on filedocumented as of this encounter Visit Diagnoses Not on filedocumented in this encounter
--- OUTSIDE RECORDS SUMMARY | 2022-08-19 10:37 | XMS_ITS | Encounter Summary ---
:1960 Author Organization [facility] Address [address] [place] [address] Care Team Providers Name Role Phone Unavailable [...] José M.D. - 04/22/2010 12:00 AM CDT [id number] IMPRESSION/REPORT/PLAN 1. Status-post ureteroscopy for treatment of a proximal left ureteral stone. This is a uric acid stone. 2. Irritative voiding symptoms. Plan Patient will follow up with his primary urologist Dr. Conley at the [facility] for his irritative voiding symptoms. I [...] Jose José M.D. Urology CC: Dr. Conley [facility]. Electronically Signed By:JOSE JOSÉ MD On 04/24/2010 03:38 PM Source: [facility] MHSDOLBEYNONRADSYS Document Id: [id number] documented in this encounter Miscellaneous Notes Miscellaneous - Panchito Mccracken, L.P.N. - 04/22/2010 10:58 AM CDT Adult Lime Vat Tender Intake/History Adult Lime Vat Tender Intake/History Entered On: 04/22/2010 10:59 CDT Performed [...] CNP; Reviewed Date: 04/22/2010 10:56 CDT Source: [facility] [email or web address] Document Id: [id number] CDT!22 documented in this encounter Plan of Treatment Not on filedocumented as of this encounter Visit Diagnoses Not on filedocumented in this encounter
--- OUTSIDE RECORDS SUMMARY | 2022-08-19 10:37 | XMS_ITS | Encounter Summary ---
:1960 Author Organization [facility] Address [address] [place] [address] Care Team Providers Name Role Phone Unavailable Primary Care Provider Unavailable Encounter Details Date Type Department Care Team Description 09/18/2010 Hospital Encounter HX [facility] FAMILYPRA Uriel Eid APRN, C.N.P. [address] [place] [phone] (Wo rk) Social History Tobacco Use Types Packs/Day Years Used Date Smoking Tobacco: Never Assessed Sex Assigned at Date Recorded Not on file documented as of this encounter Progress Notes Haleigh Eid APRN, C.N.P. - 09/18/2010 12:00 AM CST [id number] IMPRESSION/REPORT/PLAN Diabetic ischemic foot ulcer Procedural pause [...] lower extremity. PVD/cmt Signed Haleigh Eid RN, SURVEY QUESTIONNAIRE DESIGNER Geriatric Nurse Practitioner Electronically Signed By:HALEIGH EID CNP On 09/20/2010 10:33 AM Source[facility] Document Id: [id number] VISION REPORTER documented in this encounter Plan of Treatment Not on filedocumented as of this encounter Visit Diagnoses Not on filedocumented in this encounter
--- OUTSIDE RECORDS SUMMARY | 2022-08-19 10:37 | XMS_ITS | Encounter Summary ---
:1960 Author Organization [facility] Address [address] [place] [address] Care Team Providers Name Role Phone Unavailable Primary Care Provider Unavailable Encounter Details Date Type Department Care Team Description 09/05/2010 Hospital Encounter [facility]X [facility] FAMILYPRA Bhumi Andrea, HAKEEM, C.N.P. [address] [place] [phone] (Wo rk) Social History Tobacco Use Types Packs/Day Years Used Date Smoking Tobacco: Never Assessed Sex Assigned at Date Recorded Not on file documented as of this encounter Progress Notes Steve Andrea, HAKEEM, C.N.P. - 09/05/2010 12:00 AM CST [id number] CHIEF COMPLAINT/ REASON FOR VISIT 1. Diabetes [...] needed. SJM/clf Signed Steve Fernandez. Farzaneh, MSN, FIBER DESIGNER, CDE Family Nurse Practitioner Electronically Signed By:STEVE ANDREA CNP On 09/05/2010 02:13 PM Source: [facility] MHSDOLBEYNONRADSYS Document Id: [id number] RMATION SYSTEMS PLANNER documented in this encounter Procedure Notes Steve Andrea APRN, C.N.P. - 09/05/2010 9:47 AM CST Cancel Permanently Flu Vaccine Cancel Permanently Flu Vaccine Entered On: 09/05/2010 9:47 INFORMATION SYSTEMS PLANNER Performed On: 09/05/2010 9:47 INFORMATION SYSTEMS PLANNER by STEVE ANDREA CNP Cancel Permanently Flu Vaccine Cancel Permanently Flu Vaccine: Allergy/Intolerance or interaction STEVE ANDREA CNP - 09/05/2010 9:47 INFORMATION SYSTEMS PLANNER Source: [facility] POWERCHART Document Id: [id number] INFORMATION SYSTEMS PLANNER!3 RMATION SYSTEMS PLANNER documented in this encounter Miscellaneous Notes Miscellaneous - Steve Andrea APRN, C.N.P. - 09/05/2010 9:55 AM CST Ambulatory Patient Summary [address] [address] Visit Information Name: LAZ LUNA Current Date: 09/05/2010 09:55:16 Primary Care Provider: STEVE ANDREA [facility] [phone] Your Medications Here is a list of [...] No Appointments found Your Goals/Additional instructions: Source: [facility] POWERCHART Document Id: [id number] Electronically signed by Dayami [facility] Cutter And Paster [employer] [id number] at 02/09/2017 5:37 AM CDT Miscellaneous - Steve Andrea, HAKEEM, C.N.P. - 09/05/2010 9:55 AM CST Ambulatory Depart Summary [address] [address] Visit Information Name: LAZ LUNA Current Date: 09/05/2010 09:55:14 Primary Care Provider: STEVE ANDREA [facility] [id number] LAZ LUNA has been given the following [...] to the patient and/or family, guardian/caregiver. Source: [facility] [employer] Mode[employer] Document Id: [id number] Electronically signed by Dayami [facility] Cutter [employer] [id number] at 02/09/2017 5:37 AM CDT Miscellaneous - Conversion, Historical Provider Ser - 09/05/2010 9:38 AM INFORMATION SYSTEMS PLANNER Ambulatory Vitals Height Weight Ambulatory Vitals Height Weight Entered On: 09/05/2010 9:39 INFORMATION SYSTEMS PLANNER Performed On: 09/05/2010 9:38 INFORMATION SYSTEMS PLANNER by HEIDI PURCELL/Ht/Wt Systolic Blood Pressure: 130mmHg Diastolic Blood Pressure: 82mmHg NIBP Mean: 98mmHg BP Location: Left upper extremity Heart Rhythm: Regular HEIDI PURCELL - 09/05/2010 9:38 INFORMATION SYSTEMS PLANNER Source: [facility] [employer] Document Id: [id number] INFORMATION SYSTEMS PLANNER!7 Miscellaneous - Conversion, Historical Provider Ser - 09/05/2010 9:29 AM INFORMATION SYSTEMS PLANNER Adult Pipelines Supervisor Intake/History Adult Pipelines Supervisor Intake/History Entered On: 09/05/2010 9:33 INFORMATION SYSTEMS PLANNER Performed On: 09/05/2010 9:29 INFORMATION SYSTEMS PLANNER by HEIDI PURCELL Intake Chief Complaint: Recheck from May. Temperature Core: 36.8C(Converted to: 98.2DegF) Peripheral Pulse Rate: 80/min Respiratory Rate: 16/min Systolic Blood Pressure: 140mmHg Diastolic Blood Pressure: 82mmHg NIBP Mean: 101mmHg BP Location: Left upper extremity Heart Rhythm: Regular Actual Weight: 152.200kg(Converted to: 335lb 9oz) Dosing Weight Clinic: 152.20kg HEIDI PURCELL 09/05/2010 9:29 INFORMATION SYSTEMS PLANNER Subjective Pain Symptoms: No HEIDI PURCELL - 09/05/2010 9:29 INFORMATION SYSTEMS PLANNER Dependent Habits Tobacco Use/Currently Using: No HEIDI PURCELL - 09/05/2010 9:29 INFORMATION SYSTEMS PLANNER Caffeine Use Grid Caffeine Use: Current Type: Soft drinks Frequency: Occasionally HEIDI PURCELL - 09/05/2010 9:29 INFORMATION SYSTEMS PLANNER Recreational Drug Use Grid Drug Use: None HEIDI PURCELL 09/05/2010 9:29 INFORMATION SYSTEMS PLANNER Allergies Allergies (Active) Cipro Estimated Onset Date: Unspecified ; Created By: STEVE ANDREA CNP; Reaction Status: Active ;Category: Drug ; Substance: Cipro ; Type: Allergy ; Updated By: STEVE ANDREA CNP; Reviewed Date: 04/22/2010 10:56 CDT Source: [facility] POWERCHART Document Id: [id number] INFORMATION SYSTEMS PLANNER!25 documented in this encounter Plan of Treatment Not on filedocumented as of this encounter Visit Diagnoses Not on filedocumented in this encounter
--- OUTSIDE RECORDS SUMMARY | 2022-08-19 10:37 | XMS_ITS | Encounter Summary ---
:1960 Author Organization [facility] Address [address] [place] [address] Care Team Providers Name Role Phone Unavailable Primary Care Provider Unavailable Encounter Details Date Type Department Care Team Description 04/08/2010 Hospital Encounter [facility]X [facility] Jose José M.D. [address] [place] [phone] (Wo rk) Social History Tobacco Use Types Packs/Day Years Used Date Smoking Tobacco: Never Assessed Sex Assigned at Date Recorded Not on file documented as of this encounter Progress Notes Jose José M.D. - 04/08/2010 12:00 AM CDT [id number] IMPRESSION/REPORT/PLAN 1. Symptomatic left ureteral stone. PLAN [...] has seen Dr. Jarvis Heart at the [facility] for evaluation of this. It was felt that he had mild urgency with urge incontinence exacerbated by the use of diuretics. He also has a history of erectile dysfunction. The patient does not have a history of prior stones. CURRENT MEDICATIONS Post-visit Medication Reconciliation Per [facility] electronic medical record. ALLERGIES Per [facility] electronic medical record. SYSTEMS REVIEW For further details of systems review, please see separate personal history form dated 04/08/2010. PAST MEDICAL/SURGICAL HISTORY 1. Urge urinary incontinence 2. Hypertension 3. Hyperlipidemia 4. Type 2 diabetes mellitus 5. Erectile dysfunction SOCIAL HISTORY The patient is . He does not use tobacco, alcohol or recreational drugs. 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 FAMILY HISTORY Father is 83 and [...] JOSÉ MD On 04/09/2010 03:57 PM Source: [facility] Document Id: [id number] documented in this encounter Miscellaneous Notes Miscellaneous - Conversion, Historical Provider Ser - 04/08/2010 2:41 PM CDT Adult Brim Rounder Intake/History Adult Brim Rounder Intake/History Entered On: 04/08/2010 14:46 CDT Performed [...] CNP; Reviewed Date: 12/28/2009 9:39 CDT Source: [facility] POWERCHART Document Id: [id number] CDT!29 documented in this encounter Plan of Treatment Not on filedocumented as of this encounter Visit Diagnoses Not on filedocumented in this encounter
--- OUTSIDE RECORDS SUMMARY | 2022-08-19 10:37 | XMS_ITS | Encounter Summary ---
:1960 Author Organization [facility] Address [address] [place] [address] Care Team Providers Name Role Phone Unavailable Primary Care Provider Unavailable Encounter Details Date Type Department Care Team Description 05/01/2010 Hospital Encounter [facility]X [facility] FAMILYPRA Bhumi Andrea APRN, C.N.P. [address] [place] [phone] (Wo rk) Social History Tobacco Use Types Packs/Day Years Used Date Smoking Tobacco: Never Assessed Sex Assigned at Date Recorded Not on file documented as of this encounter Miscellaneous Notes Miscellaneous - Steve Andrea APRN, C.N.P. - 05/01/2010 10:33 AM CDT Ambulatory Depart Summary [address] [id number] Visit Information Name: LAZ LUNA Current Date: 05/01/2010 10:33:21 Primary Care Provider: STEVE ANDREA [facility] [id number] LAZ LUNA has been given the following [...] to the patient and/or family, guardian/caregiver. Source: [facility] POWERCHART Document Id: [id number] Electronically signed by Dayami [facility] Crime Scene Photographer [id number] at 02/09/2017 1:31 AM CDT Miscellaneous - Conversion, Historical Provider Ser - 05/01/2010 10:07 AM CDT Adult Shrimp Cleaner Intake/History Adult Shrimp Cleaner Intake/History Entered On: 05/01/2010 10:07 CDT Performed [...] Alcohol Use: No BEBO PYLE MARÍA ELENA ASSISTANT COMMISSIONER - 05/01/2010 10:07 CDT Caffeine Use Grid Caffeine Use: Current Type: Soft drinks Frequency: Occasionally BEBO PYLE MARÍA ELENA ASSISTANT COMMISSIONER - 05/01/2010 10:07 CDT Recreational Drug Use Grid Drug Use: None BEBO PYLE MARÍA ELENA ASSISTANT COMMISSIONER - 05/01/2010 10:07 CDT Allergies Allergies (Active) Cipro Estimated Onset Date: Unspecified ; Created By: STEVE ANDREA CNP; Reaction Status: Active ;Category: Drug ; Substance: Cipro ; Type: Allergy ; Updated By: STEVE ANDREA CNP; Reviewed Date: 04/22/2010 10:56 CDT [facility] Document Id: [id number] CDT!24 documented in this encounter Plan of Treatment Not on filedocumented as of this encounter Visit Diagnoses Not on filedocumented in this encounter
--- OUTSIDE RECORDS SUMMARY | 2022-08-19 10:37 | XMS_ITS | Encounter Summary ---
:1960 Author Organization [facility] Address [address] [place] [address] Care Team Providers Name Role Phone Unavailable Primary Care Provider Unavailable Encounter Details Date Type Department Care Team Description 03/31/2011 Hospital En[facility] Tye Mooney Jr., M.D. [address], [place] [phone] (Wo rk) Social History [...] Performed by: Dami Sphere: Pl CYL: -0.50 [place]: 180 ADD: +1.50 Prism: 20/20 VALE CRAIG - 03/31/2011 11:13 CDT Left Eye Manifest Grid Date: 03/31/2011 CDT Performed by: Dami Sphere: Pl CYL: -0.25 [place]: 180 ADD: +1.50 Prism: 20/20 VALE CRAIG [...] drop Phenylephrine 2.5% Eye Drops Time: 11:21 ELASTIC ATTACHER OVERLOCK Tropicamide 1% Eye Drops Eye: Both eyes Tropicamide 1% Eye Drops Amount: One drop Tropicamide 1% Eye Drops Time: 11:21 ELASTIC ATTACHER OVERLOCK VALE CRAIG - 03/31/2011 11:13 CDT Ocular [...] MOONEY MD - 03/31/2011 11:45 CDT Source: [employer] Document Id: [id number] CDT!37 documented in this encounter Nursing Notes Radha Graham L.PPiliNPili - 06/12/2011 11:29 AM CDT Diabetic Call Called and spoke with patient's who states that they are working through some issues with their insurance and once those are straightened out they will call and schedule the lab and blood pressure check. Electronically Signed By: RADHA GRAHAM LPN On: 06/12/2011 11:31 am Source: [employer] Document Id: [id number] documented in this encounter Miscellaneous Notes Miscellaneous - Mary Diaz L.PPiliNPili - 03/31/2011 1:57 PM CDT Quality Measures Quality Measures Entered On: 04/03/2011 13:58 CDT Performed On: 03/31/2011 13:57 CDT by MARY DIAZ LPN Diabetes Date of Last Eye Exam: 03/31/2011 CDT MARY DIAZ LPN - 04/03/2011 13:57 CDT Source: [employer] Document Id: [id number] CDT!3 Miscellaneous - Vale Craig, C.O.T. - 03/31/2011 11:23 AM CDT Ambulatory Vitals Height Weight Ambulatory Vitals Height Weight Entered On: 03/31/2011 11:25 CDT Performed On: 03/31/2011 11:23 CDT by VALE CRAIG Vitals/Ht/Wt Systolic Blood Pressure: 130mmHg Diastolic Blood Pressure: 90mmHg (HI) NIBP Mean: 103mmHg BP Location: Right upper extremity VALE CRAIG - 03/31/2011 11:23 CDT Source: [employer] Document Id: [id number] CDT!6 documented in this encounter Plan of Treatment Not on filedocumented as of this encounter Visit Diagnoses Not on filedocumented in this encounter
--- OUTSIDE RECORDS SUMMARY | 2022-08-19 10:37 | XMS_ITS | Encounter Summary ---
:1960 Author Organization [facility] Address [address] [place] [address] Care Team Providers Name Role Phone Unavailable Primary Care Provider Unavailable Encounter Details Date Type Department Care Team Description 05/14/2010 Hospital Encounter [facility]X [facility] FAMILYPR[facility] Bhumi Andrea, HAKEEM, C.N.P. [address] [place] [phone] (Wo rk) Social History Tobacco Use Types Packs/Day Years Used Date Smoking Tobacco: Never Assessed Sex Assigned at Date Recorded Not on file documented as of this encounter Progress Notes Steve Andrea, HAKEEM, C.N.P. - 05/14/2010 12:00 AM CDT [id number] CHIEF COMPLAINT/REASON FOR VISIT 1. Contusion left lower leg 2. Diabetes type 2 HISTORY OF PRESENT ILLNESS 1. Ed states he fell down the steps at the [employer] game on 05-09-10. He bruised his left [...] results. SJM/clf Signed Steve Fernandez. Farzaneh, MSN, SENIOR POWER SCHEDULER, CDE Family Nurse Practitioner Electronically Signed By:STEVE ANDREA CNP On 05/14/2010 03:36 PM Source: [facility] MHSDOLBEYNONRADSYS Document Id: [id number] documented in this encounter Miscellaneous Notes Miscellaneous - Steve Andrea APRN, C.N.P. - 05/14/2010 10:43 AM CDT Ambulatory Depart Summary [address] [address] Visit Information Name: NOEMÍ LUNA Current Date: 05/14/2010 10:43:33 Primary Care Provider: STEVE ANDREA CNP [id number] NOEMÍ LUNA has been given the following [...] [facility] P[facility] Document Id: [id number] Electronically signed by Dayami, [facility] Activity Specialist [id number] at 02/09/2017 12:48 AM CDT Miscellaneous - Conversion, Historical Provider Ser - 05/14/2010 9:32 AM CDT Adult Film Splicer Intake/History Adult Film Splicer Intake/History Entered On: 05/14/2010 9:33 CDT Performed On: 05/14/2010 9:32 CDT by BEBO PYLE LPN Intake Chief Complaint: fell at [employer] on 05/09/2010 complains of left knee and [...] Using: No Alcohol Use: No BEBO PYLE CONSULTING PRACTICE DIRECTOR - 05/14/2010 9:32 CDT Caffeine Use Grid Caffeine Use: Current Type: Soft drinks Frequency: Occasionally BEBO PYLE MARÍA ELENA [facility] - 05/14/2010 9:32 CDT Recreational Drug Use Grid Drug Use: None BEBO PYLE CONSULTING PRACTICE DIRECTOR - 05/14/2010 9:32 CDT Allergies Allergies (Active) Cipro Estimated Onset Date: Unspecified ; Created By: STEVE ANDREA CNP; Reaction Status: Active ;Category: Drug ; Substance: Cipro ; Type: Allergy ; Updated By: STEVE ANDREA CNP; Reviewed Date: 04/22/2010 10:56 CDT Source: [employer] Document Id: [id number] CDT!24 documented in this encounter Plan of [...]
--- OUTSIDE RECORDS SUMMARY | 2022-08-19 10:37 | XMS_ITS | Encounter Summary ---
:1960 Author Organization [facility] Address [address] [place] [address] Care Team Providers Name Role Phone Unavailable Primary Care Provider Unavailable Encounter Details Date Type Department Care Team Description 05/24/2010 Hospital Encounter [facility]X [facility] FAMILYPRA Bhumi Andrea, HAKEEM, C.N.P. [address] [place] [phone] (Wo rk) Social History Tobacco Use Types Packs/Day Years Used Date Smoking Tobacco: Never Assessed Sex Assigned at Date Recorded Not on file documented as of this encounter Progress Notes Steve Andrea APRN, C.N.P. - 05/24/2010 12:00 AM CDT [id number] CHIEF COMPLAINT/REASON FOR VISIT Recheck contusion left [...] daily and schedule immediately with Adele Eid Airline Operations Agent if any sign of infection. 2. Diabetes type 2. He is given refill on all of his medication. He declines flu shot. Recheck in 3 months fasting for laboratories. SJM/clf Signed Steve Fernandez. Farzaneh, MSN, COMBATANT DIVER QUALIFIED, CDE Family Nurse Practitioner Electronically Signed By:STEVE ANDREA CNP On 05/29/2010 03:56 PM Source: [facility] MHSDOLBEYNONRADSYS Document Id: [id number] documented in this encounter Miscellaneous Notes Miscellaneous - Steve Andrea APRN, C.N.P. - 05/24/2010 11:41 AM CDT Ambulatory Depart Summary [place] [id number] Visit Information Name: LAZ LUNA Current Date: 05/24/2010 11:41:01 Primary Care Provider: STEVE ANDREA CNP [id number] LAZ LUNA has been given the following [...] to the patient and/or family, guardian/caregiver. Source: [facility] POWERCHART Document Id: [id number] Electronically signed by Dayami, Health system Facilities Operations Technician [id number] at 02/09/2017 12:48 AM CDT Miscellaneous - Conversion, Historical Provider Ser - 05/24/2010 9:46 AM CDT Adult Fuel Cell Technician Intake/History Adult Fuel Cell Technician Intake/History Entered On: 05/24/2010 9:48 CDT Performed [...] CNP; Reviewed Date: 04/22/2010 10:56 CDT Source: [employer] Document Id: [id number] CDT!23 Mary Sanchez L.P.N. - 12/28/2009 11:45 AM CDT Quality Measures Quality Measures Entered On: 09/04/2010 11:45 BRAND ANALYST Performed On: 12/28/2009 11:45 CDT by MARY DIAZ LPN Diabetes Date of Last Foot Exam: 12/28/2009 CDT MARY DIAZ LPN - 09/04/2010 11:45 BRAND ANALYST Source: [employer] Document Id: [id number] BRAND ANALYST!3 D ANALYST Miscellwalter - Mary Diaz L.P.N. - 11/02/2009 11:44 AM CST Quality Measures Quality Measures Entered On: 09/04/2010 11:45 BRAND ANALYST Performed On: 11/02/2009 11:44 BRAND ANALYST by MARY DIZA LPN Diabetes Date of Last Eye Exam: 11/02/2009 BRAND ANALYST MARY DIAZ LPN - 09/04/2010 11:44 BRAND ANALYST Source: [employer] Document Id: [id number] BRAND ANALYST!3 D ANALYST documented in this encounter Plan of Treatment Not on filedocumented as of this encounter Visit Diagnoses Not on filedocumented in this encounter
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
--- OUTSIDE RECORDS SUMMARY | 2022-08-19 10:37 | XMS_ITS | Encounter Summary ---
:1960 Author Organization [facility] Address [address] [place] [address] Care Team Providers Name Role Phone Unavailable Primary Care Provider Unavailable Encounter Details Date Type Department Care Team Description 04/11/2010 Hospital Encounter [facility]X [facility] FAMILYPRA Bhumi Andrea, HAKEEM, C.N.P. [address] [place] [phone] (Wo rk) Social History Tobacco Use Types Packs/Day Years Used Date Smoking Tobacco: Never Assessed Sex Assigned at Date Recorded Not on file documented as of this encounter H&P Notes Steve Andrea APRN, C.N.P. - 04/11/2010 12:00 AM CDT [id number] IMPRESSION / REPORT / PLAN 1. Preoperative medical evaluation. Patient's active problems diagnostically and therapeutically optimized for planned procedure. He will be NPO after midnight the night before surgery. He will stop Metformin on 04-13-10. He is holding aspirin as of now. He will resume all medications after surgery. Appropriate paperwork completed and faxed over to [facility]. All of his questions were answered. [...] extraction with laser with Dr. José at [facility] on 04-15-10. 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 FAMILY HISTORY Mother coronary artery disease diabetes [...] chest x-ray SJM/clf Signed Steve Andrea, MSN, JUICE TESTER, CDE Family Nurse Practitioner Electronically Signed By:STEVE ANDREA CNP On 04/12/2010 09:26 AM Source: [facility] MHSDOLBEYNSARAHSYGlendy Document Id: [id number] documented in this encounter Miscellaneous Notes Miscellaneous [...] results Due Date/Time: 04/11/2010 13:37:00 CDT Source: [facility] POWERCHART Document Id: [id number] Electronically signed by Dayami [facility] Nutrition Therapist [id number] at 02/09/2017 1:31 AM CDT Miscellaneous - [...] results Due Date/Time: 04/11/2010 13:36:00 CDT Source: [facility] POWERCHART Document Id: [id number] Electronically signed by Dayami, [facility] Nutrition Therapist [id number] at 02/09/2017 1:31 AM CDT Miscellaneous - Steve Andrea APRN, C.N.P. - 04/11/2010 10:43 AM CDT Ambulatory Depart Summary [address] [address] Visit Information Name: LAZ LUNA Current Date: 04/11/2010 10:43:45 Primary Care Provider: STEVE ANDREA [facility] [id number] LAZ LUNA has been given the following [...] to the patient and/or family, guardian/caregiver. Source: [facility] Security Scorecard Document Id: [id number] Electronically signed by Conversion, [facility] Nutrition Therapist [id number] at 02/09/2017 1:31 AM CDT Miscellaneous - Conversion, Historical Provider Ser - 04/11/2010 10:19 AM CDT Adult Maintenance Worker Swimming Pool Intake/History Adult Maintenance Worker Swimming Pool Intake/History Entered On: 04/11/2010 10:20 CDT Performed [...] CNP; Reviewed Date: 04/08/2010 14:46 CDT [facility] Document Id: [id number] CDT!25 documented in this encounter Plan of [...]
--- OUTSIDE RECORDS SUMMARY | 2022-08-19 10:37 | XMS_ITS | Encounter Summary ---
:1960 Author Organization [facility] Address [address] [place] [address] Care Team Providers Name Role Phone Unavailable Primary Care Provider Unavailable Encounter Details Date Type Department Care Team Description 09/05/2010 Hospital Encounter [facility]X [facility] Cindy Moy, Soumya PRN, C.N.P. [address] [place], [place] [phone] (Wo rk) Social History Tobacco Use Types Packs/Day Years Used Date Smoking Tobacco: Never Assessed Sex Assigned at Date Recorded Not on file documented as of this encounter Plan of Treatment Not on filedocumented as of this encounter Visit Diagnoses Not on filedocumented in this encounter
--- OUTSIDE RECORDS SUMMARY | 2022-08-19 10:37 | XMS_ITS | Encounter Summary ---
:1960 Author Organization [facility] Address [address] [place] [address] Care Team Providers Name Role Phone Unavailable Primary Care Provider Unavailable Encounter Details Date Type Department Care Team Description 12/05/2010 Hospital Encounter [facility] FAMILYPRA Bhumi Andrea, HAKEEM, C.N.P. [address] [place] [phone] (Wo rk) Social History Tobacco Use Types Packs/Day Years Used Date Smoking Tobacco: Never Assessed Sex Assigned at Date Recorded Not on file documented as of this encounter Progress Notes Steve Andrea, HAKEEM, C.N.P. - 12/05/2010 12:00 AM CDT [id number] CHIEF COMPLAINT/ REASON FOR VISIT Diabetes type [...] 3 months SJM/clf Signed Steve Andrea, MSN, SIGN HANGER, CDE Family Nurse Practitioner Electronically Signed By: STEVE ANDREA CNP On: 12/07/2010 10:41 Source: [facility] MHSDOLBEYNONRADSYS Document Id: [id number] documented in this encounter Nursing Notes Steve Andrea APRN, C.N.P. - 12/05/2010 5:57 PM CDT Flat Knitter Helper Intake (Adult) Flat Knitter Helper Intake (Adult) Entered On: 12/05/2010 17:58 CDT [...] ANDREA CNP - 12/05/2010 17:57 CDT Source: [facility] [employer] Document Id: [id number] CDT!36 documented in this encounter Miscellaneous Notes Miscellaneous - Steve Andrea APRN, C.N.P. - 12/05/2010 5:55 PM CDT Ambulatory Patient Summary [address] [address] Visit Information Name: LUNA, Current Date: 12/05/2010 17:55:55 Primary Care Provider: STEVE ANDREA [facility] Your Medications Here is a list [...] Date Time Location Reason Provider 12/30/2010 08:40 [facility] Phil diabetes Daniela MENDEZ, Tye Fields Your Goals/Additional instructions: Source: [facility] POWERCHART Document Id: [id number] Electronically signed by Conversion, [facility] Flexible Machining System Machinist [id number] at 02/08/2017 5:27 PM CDT Miscellaneous - Steve Andrea, HAKEEM, C.N.P. - 12/05/2010 5:55 PM CDT Ambulatory Depart Summary [address] [address] Visit Information Name: NOEMÍ LUNA Current Date: 12/05/2010 17:55:54 Primary Care Provider: STEVE ANDREA [facility] NOEMÍ LUNA has been given the [...] the patient and/or family, guardian/caregiver. Source: [facility] POWERCHART Document Id: [id number] Miscellaneous - Steve Andrea APRN, C.N.P. - [...] ANDREA CNP - 12/05/2010 10:22 CDT Source: [facility] POWERCHART Document Id: [id number] CDT!15 Miscellaneous - Dayami, [facility] Provider Ser - 12/05/2010 10:07 AM CDT Ambulatory Vitals Height Weight Ambulatory Vitals Height Weight Entered On: 12/05/2010 10:08 CDT Performed On: 12/05/2010 10:07 CDT by JOSE WILLIAM Vitals/Ht/Wt Systolic Blood Pressure: 130mmHg Diastolic Blood Pressure: 80mmHg NIBP Mean: 97mmHg BP Location: Left upper extremity JOSE WILLIAM Feliz - 12/05/2010 10:07 CDT Source: [employer] Document Id: [id number] CDT!6 Miscellaneous - Conversion, Historical Provider Ser - 12/05/2010 10:05 AM CDT Adult Unindentured Apprentice Intake/History Adult Unindentured Apprentice Intake/History Entered On: 12/05/2010 10:07 CDT Performed [...] STEVE ANDREA CNP; Reviewed Date: 09/05/2010 9:47 PAINT TINTER Source: [employer] Document Id: [id number] CDT!22 documented in this encounter Plan of Treatment Not on filedocumented as of this encounter Visit Diagnoses Not on filedocumented in this encounter
--- OUTSIDE RECORDS SUMMARY | 2022-08-19 10:37 | XMS_ITS | Encounter Summary ---
:1960 Author Organization [facility] Address [address] [place] [address] Care Team Providers Name Role Phone Unavailable Primary Care Provider Unavailable Encounter Details Date Type Department Care Team Description 03/19/2011 Hospital Encounter HX [facility] FAMILYPRA MyrBhumi walker, AIRLINE CUSTOMER SERVICE AGENT, C.N.P. [address] [place] [phone] (Wo rk) Social History Tobacco Use Types [...] DIAZ LPN On: 07/22/2011 03:47 PM Source: [facility] POWERCHART Document Id: [id number] VERY RN Brit Diaz L.P.N. - 07/16/2011 10:28 AM CST Diabetic Call Message left with Ed's aftab he is due for diabetic lab and for a blood pressure check with nurse. Electronically Signed By: BRIT DIAZ LPN On: 07/16/2011 10:29 AM Source: [employer] Document Id: [id number] VERY RN Steve Moy APRN, C.NPiliPPili - 03/19/2011 4:37 PM CDT Safety Engineer Pressure Vessels Intake (Adult) Safety Engineer Pressure Vessels Intake (Adult) Entered On: 03/19/2011 16:39 CDT [...] MOY CNP - 03/19/2011 16:37 CDT Source: [employer] Document Id: [id number] CDT!33 documented in this encounter Miscellaneous Notes Miscellaneous - Steve Moy APRN, C.N.P. - 03/19/2011 4:46 PM CDT Ambulatory Patient Summary [address] [place] [address] Visit Information Name: NOEMÍ LUNA Current Date: 03/19/2011 16:46:01 Primary Care Provider: STEVE MOY [facility] Your Medications Here is a [...] No Appointments found Your Goals/Additional instructions: Source: [facility] POWERCHART Document Id: [id number] Electronically signed by Conversion, [facility] Technology Training Associate [id number] at 02/08/2017 3:38 PM CDT Miscellaneous - Steve Moy, HAKEEM, C.N.P. - 03/19/2011 4:46 PM CDT Ambulatory Depart Summary [address] [address] Visit Information Name: NOEMÍ LUNA Current Date: 03/19/2011 16:46:00 Primary Care Provider: STEVE MOY [facility] NOEMÍ LUNA has been given the [...] to the patient and/or family, guardian/caregiver. Source: [facility] [employer] [facility] Document Id: [id number] Electronically signed by Dayami [facility] Technology Training Associate [id number] at 02/08/2017 3:38 PM CDT Miscellaneous - Steve Moy APRN, C.N.P. - 03/19/2011 4:46 PM CDT Quality Measures Quality Measures Entered On: 03/19/2011 16:47 CDT Performed On: 03/19/2011 16:46 CDT by STEVE MOY CNP Diabetes Date of Last Diabetes Education: 03/19/2011 CDT STEVE MOY CNP - 03/19/2011 16:46 CDT Source: [facility] Document Id: [id number] CDT!3 Miscellaneous - Lisa Stock Provider Ser - 03/19/2011 4:28 PM CDT Adult Air Brake Mechanic Intake/History Adult Air Brake Mechanic Intake/History Entered On: 03/19/2011 16:29 CDT Performed [...] 2.75 Body Mass Index: 48.29kg/m2 BEBO PYLE [facility] 03/19/2011 16:28 CDT Subjective Pain Symptoms: No BEBO PYLE [facility] 03/19/2011 16:28 CDT Dependent Habits Tobacco Use/Currently Using: No Alcohol Use: No BEBO PYLE [facility] 03/19/2011 16:28 CDT Caffeine Use Grid Caffeine Use: Current Type: Soft drinks Frequency: Occasionally BEBO PYLE MARÍA ELENA [facility] 03/19/2011 16:28 CDT Recreational Drug Use Grid Drug Use: None BEBO PYLE [facility] 03/19/2011 16:28 CDT Allergy Allergies (Active) [...] CNP; Reviewed Date: 12/05/2010 10:10 CDT Source: [employer] Document Id: [id number] CDT!27 documented in this encounter Plan of Treatment Not on filedocumented as of this encounter Visit Diagnoses Not on filedocumented in this encounter
--- OUTSIDE RECORDS SUMMARY | 2022-08-19 10:37 | XMS_ITS | Encounter Summary ---
:1960 Author Organization [facility] Address [address] [place] [address] Care Team Providers Name Role Phone Unavailable Primary Care Provider Unavailable Encounter Details Date Type Department Care Team Description 07/24/2011 Hospital Encounter HX [facility] LAB Cindy Moy, Soumya PRN, C.N.P. [address] [place], [place] [phone] (Wo rk) Social History Tobacco Use Types Packs/Day Years Used Date Smoking Tobacco: Never Assessed Sex Assigned at Date Recorded Not on file documented as of this encounter Plan of Treatment Not on filedocumented as of this encounter Visit Diagnoses Not on filedocumented in this encounter
--- OUTSIDE RECORDS SUMMARY | 2022-08-19 10:37 | XMS_ITS | Encounter Summary ---
:1960 Author Organization [facility] Address [address] [place] [address] Care Team Providers Name Role Phone Unavailable Primary Care Provider Unavailable Encounter Details Date Type Department Care Team Description 05/01/2010 Hospital Encounter [facility] Steve Andrea, Soumya HERRERA, C.N.P. [address] [place], [place] [phone] (Wo rk) Social History Tobacco Use Types Packs/Day Years Used Date Smoking Tobacco: Never Assessed Sex Assigned at Date Recorded Not on file documented as of this encounter Progress Notes Steve Andrea, PURCHASING/RECEIVING, C.N.P. - 05/01/2010 12:00 AM CDT [id number] IMPRESSION/REPORT/PLAN Pyelonephritis resolving and diabetes type 2. Complete the doxycycline prescription. Creatinine is pending when results are back if creatinine is back down to normal I will call him to restart Metformin and will recheck in 1 month. CHIEF COMPLAINT/REASON FOR VISIT Recheck post hospitalization HISTORY OF PRESENT ILLNESS Ed is here for recheck. He was admitted to [facility] with pyelonephritis. He had kidney stone treated [...] no hepatosplenomegaly. SJM/clf Signed Steve Andrea, MSN, PHYSICIAN OFFICE NURSE, CDE Family Nurse Practitioner Electronically Signed By:STEVE ANDREA CNP On 05/06/2010 11:37 AM Source: [facility] MHSDOLBEYNONRADSYS Document Id: [id number] documented in this encounter Plan of Treatment Not on filedocumented as of this encounter Visit Diagnoses Not on filedocumented in this encounter
--- OUTSIDE RECORDS SUMMARY | 2022-08-19 10:37 | XMS_ITS | Encounter Summary ---
:1960 Author Organization [facility] Address [address] [place] [address] Care Team Providers Name Role Phone Unavailable Primary Care Provider Unavailable Encounter Details Date Type Department Care Team Description 03/19/2011 Hospital Encounter [facility]X [facility] Steve Andrea, Soumya HERRERA, C.N.P. [address] [place], [place] [phone] (Wo rk) Social History Tobacco Use Types Packs/Day Years Used Date Smoking Tobacco: Never Assessed Sex Assigned at Date Recorded Not on file documented as of this encounter Progress Notes Steve Andrea, BUS GIRL, C.N.P. - 03/19/2011 12:00 AM CDT [id number] CHIEF COMPLAINT/ REASON FOR VISIT Diabetes type [...] regular exercise program. Diabetes education done see natural resources extension educator intake form in the EMR and I will mail him laboratory results STEVEN/clrenee Signed Steve Andrea, MSN, TABULATING CLERK, CDE Family Nurse Practitioner Electronically Signed By: STEVE ANDREA TABULATING CLERK On: 03/20/2011 12:48 PM Source: [facility] MHSDOLBEYNONRADSYS Document Id: [id number] documented in this encounter Plan of Treatment Not on filedocumented as of this encounter Visit Diagnoses Not on filedocumented in this encounter
--- OUTSIDE RECORDS SUMMARY | 2022-08-19 10:38 | XMS_ITS | Encounter Summary ---
:1960 Author Organization [facility] Address [address] [place] [address] Care Team Providers Name Role Phone Unavailable Primary Care Provider Unavailable Encounter Details Date Type Department Care Team Description 11/28/2005 Hospital Encounter [facility] Vishal Suarez Jr., M.D. [address] [place] [phone] (Wo rk) Social History Tobacco Use Types Packs/Day Years Used Date Smoking Tobacco: Never Assessed Sex Assigned at Date Recorded Not on file documented as of this encounter Plan of Treatment Not on filedocumented as of this encounter Visit Diagnoses Not on filedocumented in this encounter
--- OUTSIDE RECORDS SUMMARY | 2022-08-19 10:38 | XMS_ITS | Encounter Summary ---
:1960 Author Organization [facility] Address [address] [place] [address] Care Team Providers Name Role Phone Unavailable Primary Care Provider Unavailable Encounter Details Date Type Department Care Team Description 07/14/2008 Hospital Encounter [facility]X [facility] Vishal Suarez Jr., M.D. [address] [place] [address] (Wo rk) Social History Tobacco Use Types Packs/Day Years Used Date Smoking Tobacco: Never Assessed Sex Assigned at Date Recorded Not on file documented as of this encounter Plan of Treatment Not on filedocumented as of this encounter Visit Diagnoses Not on filedocumented in this encounter
--- OUTSIDE RECORDS SUMMARY | 2022-08-19 10:38 | XMS_ITS | Encounter Summary ---
:1960 Author Organization [facility] Address [address] [place] [address] Care Team Providers Name Role Phone Unavailable [...]
--- OUTSIDE RECORDS SUMMARY | 2022-08-19 10:38 | XMS_ITS | Encounter Summary ---
:1960 Author Organization [facility] Address [address] [place] [address] Care Team Providers Name Role Phone Unavailable Primary Care Provider Unavailable Encounter Details Date Type Department Care Team Description 11/29/2004 Hospital Encounter [facility] Vishal Suarez Jr., M.D. [address] [place] [address] (Wo rk) Social History Tobacco Use Types Packs/Day Years Used Date Smoking Tobacco: Never Assessed Sex Assigned at Date Recorded Not on file documented as of this encounter Plan of Treatment Not on filedocumented as of this encounter Visit Diagnoses Not on filedocumented in this encounter
--- OUTSIDE RECORDS SUMMARY | 2022-08-19 10:38 | XMS_ITS | Encounter Summary ---
:1960 Author Organization [facility] Address [address] [place] [address] Care Team Providers Name Role Phone Unavailable Primary Care Provider Unavailable Encounter Details Date Type Department Care Team Description 02/15/2010 Hospital Encounter [facility]X [facility] FAMILYPRA Bhumi Andrea, HAKEEM, C.N.P. [address] [place] [phone] (Wo rk) Social History Tobacco Use Types Packs/Day Years Used Date Smoking Tobacco: Never Assessed Sex Assigned at Date Recorded Not on file documented as of this encounter Progress Notes Steve Andrea, HAKEEM, C.N.P. - 02/15/2010 12:00 AM CDT [id number] IMPRESSION/REPORT/PLAN 1. Diabetes type 2. 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 I did talk to him about possibly [...] no hepatosplenomegaly. SJM/clf Signed Steve Andrea, UMU, SHIRT MARKER, CDE Family Nurse Practitioner Electronically Signed By:STEVE ANDREA CNP On 02/20/2010 09:33 AM Source: [facility] MHSDOLBEYNONRADSYS Document Id: [id number] documented in this encounter Nursing Notes Steve [...] ANDREA CNP - 02/15/2010 10:24 CDT Source: [facility] POWERCHART Document Id: [id number] CDT!10 Conversion, Historical Provider Ser - 02/15/2010 9:46 AM CDT Diabetes Nurse Intake Diabetes Nurse Intake Entered On: 02/15/2010 9:47 CDT Performed On: 02/15/2010 9:46 CDT by BEBO PYLE LPN Diabetes Nurse Intake Date of Last Foot Exam: 12/08/2009 CDT Date of Last Eye Exam: 11/02/2009 TRANSPORTATION INSPECTOR BEBO PYLE LPN - 02/15/2010 9:46 CDT Source: [facility] POWERCHART Document Id: [id number] CDT!4 documented in this encounter Miscellaneous Notes [...] PYLE LPN - 02/15/2010 9:45 CDT Source: [employer] Document Id: [id number] CDT!24 Miscellaneous - Conversion, Historical Provider Ser - 02/15/2010 9:44 AM CDT Adult Rehabilitation Counsellor Intake/History Adult Rehabilitation Counsellor Intake/History Entered On: 02/15/2010 9:45 CDT Performed [...] CNP; Reviewed Date: 12/28/2009 9:39 CDT Source: [employer] Document Id: [id number] CDT!24 documented in this encounter Plan of Treatment Not on filedocumented as of this encounter Visit Diagnoses Not on filedocumented in this encounter
--- OUTSIDE RECORDS SUMMARY | 2022-08-19 10:38 | XMS_ITS | Encounter Summary ---
:1960 Author Organization [facility] Address [address] [place] [address] Care Team Providers Name Role Phone Unavailable Primary Care Provider Unavailable Encounter Details Date Type Department Care Team Description 11/12/2006 Hospital Encounter [facility]X [facility] Vishal Suarez Jr., M.D. [address] [place] [phone] (Wo rk) Social History Tobacco Use Types Packs/Day Years Used Date Smoking Tobacco: Never Assessed Sex Assigned at Date Recorded Not on file documented as of this encounter Plan of Treatment Not on filedocumented as of this encounter Visit Diagnoses Not on filedocumented in this encounter
--- OUTSIDE RECORDS SUMMARY | 2022-08-19 10:38 | XMS_ITS | Encounter Summary ---
:1960 Author Organization [facility] Address [address] [place] [address] Care Team Providers Name Role Phone Unavailable Primary Care Provider Unavailable Encounter Details Date Type Department Care Team Description 04/08/2010 Hospital Encounter [facility]X [facility] FAMILYPRA Bhumi Andrea, HAKEEM, C.N.P. [address] [place] [phone] (Wo rk) Social History Tobacco Use Types Packs/Day Years Used Date Smoking Tobacco: Never Assessed Sex Assigned at Date Recorded Not on file documented as of this encounter Progress Notes Steve Andrea APRN, C.N.P. - 04/08/2010 12:00 AM CDT [id number] IMPRESSION/REPORT/PLAN 1. Kidney stone per CT scan. [...] hepatosplenomegaly. SJM/clf Signed Steve Fernandez. Farzaneh, MSN, SPEEDBOAT OPERATOR, CDE Family Nurse Practitioner Electronically Signed By:STEVE ANDREA CNP On 04/10/2010 01:08 PM Source: [facility] MHSDOLBEYNONRADSYFeliz Document Id: [id number] documented in this encounter Nursing Notes Conversion, [...] PYLE LPN On 04/23/2010 09:18 am Source: [facility] POWERCHART Document Id: [id number] Steve Andrea APRN, C.N.P. - 04/08/2010 12:20 PM CDT Federal District Law Clerk Intake (Adult) Document Has Been Updated Federal District Law Clerk Intake (Adult) Entered On: 04/08/2010 12:22 CDT [...] CDT BRIT DIAZ LPN - 09/04/2010 11:43 COMMERCIAL REVIEW APPRAISER Exercise Type: None Time Spent With Patient: 15 Minutes STEVE ANDREA CNP - 04/08/2010 12:20 CDT Education Diabetes Education Grid Topics: Disease process, Medications/Effectiveness - Oral Agents, Monitoring - Blood Glucose, Using Results - Blood Glucose, Chronic Complications - Preventing Individuals Taught: Patient Barriers to Learning: None evident Teaching Method: Explanation Teaching Evaluation: Verbalizes understanding STEVE ANDREA CNP - 04/08/2010 12:20 CDT Source: [facility] [employer] Document Id: [id number] COMMERCIAL REVIEW APPRAISER!4 ERCIAL REVIEW APPRAISER documented in this encounter Miscellaneous Notes Miscellaneous - Steve Andrea APRN, C.N.P. - 04/08/2010 12:24 PM CDT Ambulatory Depart Summary [address] [address] Visit Information Name: NOEMÍ LUNA Current Date: 04/08/2010 12:24:00 Primary Care Provider: STEVE ANDREA CNP [id number] NOEMÍ LUNA has been given the following [...] to the patient and/or family, guardian/caregiver. Source: [facility] POWERCHART Document Id: [id number] Miscellaneous - Conversion, Historical Provider Ser - 04/08/2010 11:50 AM CDT Adult Client Solutions Specialist Intake/History Adult Client Solutions Specialist Intake/History Entered On: 04/08/2010 11:51 CDT Performed [...] Weight Clinic: 154.50kg BEBO PYLE MARÍA ELENA FILLING OPERATOR - 04/08/2010 11:50 CDT Subjective Pain Symptoms: No BEBO PYLE MARÍA ELENA ZURITA - 04/08/2010 11:50 CDT Dependent Habits Tobacco Use/Currently Using: No Alcohol Use: No BEBO PYLE MARÍA ELENA ZURITA - 04/08/2010 11:50 CDT Caffeine Use Grid Caffeine Use: Current Type: Soft drinks Frequency: Occasionally LASHANDABEBO MARÍA ELENA FILLING OPERATOR - 04/08/2010 11:50 CDT Recreational Drug Use Grid Drug Use: None LASHANDABEBO MARÍA ELENA FILLING OPERATOR - 04/08/2010 11:50 CDT Allergies Allergies (Active) Cipro Estimated Onset Date: Unspecified ; Created By: STEVE ANDREA CNP; Reaction Status: Active ;Category: Drug ; Substance: Cipro ; Type: Allergy ; Updated By: STEVE ANDREA CNP; Reviewed Date: 12/28/2009 9:39 CDT Source: [employer] Document Id: [id number] CDT!24 documented in this encounter Plan of Treatment Not on filedocumented as of this encounter Visit Diagnoses Not on filedocumented in this encounter
--- OUTSIDE RECORDS SUMMARY | 2022-08-19 10:38 | XMS_ITS | Encounter Summary ---
:1960 Author Organization [facility] Address [address] [place] [address] Care Team Providers Name Role Phone Unavailable Primary Care Provider Unavailable Encounter Details Date Type Department Care Team Description 11/02/2009 Hospital Encounter [facility]X [facility] Vishal Suarez Jr., M.D. [address], [place] [phone] (Wo rk) Social History Tobacco Use Types Packs/Day Years Used Date Smoking Tobacco: Never Assessed Sex Assigned at Date Recorded Not on file documented as of this encounter Plan of Treatment Not on filedocumented as of this encounter Visit Diagnoses Not on filedocumented in this encounter
--- OUTSIDE RECORDS SUMMARY | 2022-08-19 10:43 | XMS_ITS | Encounter Summary ---
:1960 Author Organization [facility] Address [address] [place] [address] Care Team Providers Name Role Phone Duncan [...] filedocumented in this encounter Care Teams Automotive Accessory Installer Relationship Specialty Start Date End Date Ladan Song PCP - General 09/29/14 [facility] [address] [place] [address] [place] [address] Yulisa Bernabe PA Physician Integration Solution Architect Physician Integration Solution Architect 03/16/15 [address] [facility] [address] [place], [place] [address] documented as of this encounter
--- OUTSIDE RECORDS SUMMARY | 2022-08-19 10:43 | XMS_ITS | Encounter Summary ---
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
--- OUTSIDE RECORDS SUMMARY | 2022-08-19 10:43 | XMS_ITS | Encounter Summary ---
:1960 Author Organization [place] Address [address] [place] [address] Care Team Providers Name Role Phone Ladan Song Primary Care Provider Yulisa Bernabe PA Unavailable Reason for Visit Reason Comments Consult personal issues, would not explain Encounter Details Date Type Department Care Team Description 09/21/2018 Office Visit [facility] Urology and Keyla Haider le dysfunction, Inst for Prostate and PATIENCE Reaves unspecified erectile Urologic Cancers [address] [facility] dysfunction type [address] [place], [place] (Primary Dx) [id number] [place] [address] [phone] [address] (Work) [phone] Social History Tobacco Use Types Packs/Day Years Used Date Smoking Tobacco: Never Smokeless Tobacco: Never Alcohol Use Standard Drinks/Week Comments No 0 (1 standard drink = 0.6 oz pure alcoho l) Sex Assigned at Date Recorded Not on file documented as of this encounter Last Filed Vital Signs Vital Sign Reading Time Taken Comments Blood Pressure 142/80 09/21/2018 10:15 AM NETWORK AND THREAT SUPPORT SPECIALIST Pulse 78 09/21/2018 10:15 AM NETWORK AND THREAT SUPPORT SPECIALIST Temperature - - Respiratory Rate - - Oxygen Saturation - - Inhaled Oxygen Concentration - - Weight 80.7 kg (178 lb) 09/21/2018 10:15 AM NETWORK AND THREAT SUPPORT SPECIALIST per pat ient Height 182.9 cm (6') 09/21/2018 10:15 AM NETWORK AND THREAT SUPPORT SPECIALIST Body Mass Index 24.14 09/21/2018 10:15 AM NETWORK AND THREAT SUPPORT SPECIALIST documented in this encounter Progress Notes Keyla [...] of erectile dysfunction. His last visit with [facility] Urology was 04/10/2015 with Jess Bernabe PA-C. [...] since 2003 when he his from the [facility]. For the past 3-5 years, he also [...] unsure what type. SOCIAL HISTORY: - from [facility] 2003 - no intercourse. 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 reports that has [...] on the front of his truckif the dental insurance biller wouldn't cooperate with him. -At this time, [...] I stood up and walked out of [facility] stating that I was leaving now. The patient then proceeded to walk out of clinic into the [facility]. -Urology patient care purchasing and claims supervisor was notified and an ACT [...] Keyla Haider PA-C Department of Urologic Surgery ORK AND THREAT SUPPORT SPECIALIST documented in this encounter Nursing Notes Radha [...] file Radha Sultana LPN 09/21/2018 10:17 AM ORK AND THREAT SUPPORT SPECIALIST documented in this encounter Plan of Treatment Not on filedocumented as of this encounter Visit Diagnoses Diagnosis Erectile dysfunction, unspecified erecti le dysfunction type - Primary documented in this encounter Care Teams Music Writer Relationship Specialty Start Date End Date Ladan Snog PCP - General 09/29/14 [facility] [address] [place] [address] [place] [address] Yulisa Bernabe PA Physician Visitor Services Representative Physician Visitor Services Representative 03/16/[address] [place] [address] [address] [place] [address] documented as of this encounter
--- OUTSIDE RECORDS SUMMARY | 2022-08-19 10:43 | XMS_ITS | Clinical Summary ---
:1960 Author Organization [place] Address [address] [place] [address] Care Team Providers Name Role Phone Ladan Song Primary Care Provider Yulisa Bernabe PA Unavailable Allergies Active Allergy Reactions Severity Noted Date Comments Ciprofloxacin Swelling 04/10/2015 Flu Virus Vaccine Other (See Comments) 11/03/2016 Di arrhea Haemophilus Influenzae GI Disturbance 11/03/2016 Priaynka rrhea Medications Medication Sig Dispensed Refills Start [...] Comments Blood Pressure 142/80 09/21/2018 10:15 AM PHYSICIAN/OPHTHALMOLOGIST Pulse 78 09/21/2018 10:15 AM PHYSICIAN/OPHTHALMOLOGIST Temperature - - Respiratory Rate - - Oxygen Saturation 96% 10/12/2014 11:45 AM PHYSICIAN/OPHTHALMOLOGIST Inhaled Oxygen Concentration - - Weight 80.7 kg (178 lb) 09/21/2018 10:15 AM PHYSICIAN/OPHTHALMOLOGIST per pat ient Height 182.9 cm (6') 09/21/2018 10:15 AM PHYSICIAN/OPHTHALMOLOGIST Body Mass Index 24.14 09/21/2018 10:15 AM PHYSICIAN/OPHTHALMOLOGIST Plan of Treatment Health Maintenance Due Date [...] on patient's age to complete this to [facility] MENINGITIS IMMUNIZATION Aged Out No longe r eligible based on patient's age to complete this to [facility] Insurance Payer Benefit Plan / Subscriber ID Effective Dates Phone Addre ss Type Group BLUE PLUS BLUE PLUS [id number] 2018-Present [phone] [address] [address] [address] [place] [address] Luna,Ed Personal/Family Self [id number] (Home) [address] [place] [address] Care Teams Ballast Inspector Relationship Specialty Start Date End Date Ladan Song PCP - General 09/29/14 [facility] [address] [place] [address] [place] [address] [id number] Yulisa Bernabe PA Physician Grey Percher Physician Grey Percher 03/16/15 [address] [facility] [address] [place] [address]
--- OUTSIDE RECORDS SUMMARY | 2022-08-19 10:43 | XMS_ITS | Encounter Summary ---
:1960 Author Organization [place] Address [address] [place] [address]. [place] [address] Care Team Providers Name Role Phone Ladan Song Primary Care Provider Yulisa Bernabe Unavailable Reason for Visit Reason Onset Date Comments Results 04/23/2015 Encounter Details Date Type Department Care Team Description 04/23/2015 Telephone [facility] Yulisa Holt PA Results FOR PROSTATE AND UROLOGIC [facility] CANCERS [address] [place] [address] [address]TH FLOOR, [address] 420 [facility] [address] [place], [place] [phone] Social History Tobacco Use [...] you first. His cell phone number is: [phone] Thank you!! documented in this encounter Plan of Treatment Not on filedocumented as of this encounter Visit Diagnoses Not on filedocumented in this encounter Care Teams Nuclear Medical Tech Relationship Specialty Start Date End Date Ladan Song PCP - General 09/29/14 [facility] [address] [facility] [address] [place] [address] Yulisa Bernabe PA Physician Grinder Operator Surface Tool Physician Grinder Operator Surface Tool 03/16/15 420 [facility] 394 [place], [place] [address] documented as of this encounter
--- OUTSIDE RECORDS SUMMARY | 2022-08-19 10:43 | XMS_ITS | Encounter Summary ---
:1960 Author Organization [place] Address [address] [place] [address] Care Team Providers Name Role Phone SongLadan [...] BPH (benign prostatic hyperplasia); PROSTATE AND UROLOGIC Critical access hospitaly Erectile dysfunction due to diseases cla ssified elsewhere CANCERS [address] [place], [place] [address] [address]TH FLOOR, [address] [place] [address] (Work) [place] [address] [place] [address] Social History Tobacco Use Types [...] by PCP - Ladan Song at the [facility]. He has numerous urologic concerns today as listed above. His last visit with [facility] Urology was with Dr. Heart in December [...] least since 2003 when he his from [facility]. His sensation is relatively normal [...] unsure what type SOCIAL HISTORY: - from [facility] 2003 - no intercourse. 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 reports that he [...] Signature PSA 1.48 0 - 4 ug/L [facility] Specimen Anatomical Collection Method Collection Time Receive d Time (Source) Location / / Volume Laterality Blood specimen 04/10/2015 2:06 PM 015 2:07 (specimen) CDT PM CDT Yulisa [facility] LAB - BLOOD ORDERABLES Performing Organization Address City/[facility]/ZIP Code Phon e Number [facility] [address] (ABNORMAL) Basic metabolic panel (04/10/2015 2:06 PM CDT) [facility] gist Method Time Signature Sodium 140 133 - 144 [facility] mmol/L [facility] Potassium 3.9 3.4 - 5.3 [facility] mmol/L [facility] Chloride 107 94 - 109 [facility] mmol/L [facility] Carbon Dioxide 23 20 - 32 [facility] mmol/L [facility] Anion Gap 9 3 - 14 [facility] mmol/L [facility] Glucose 122 (H) 70 - 99 [facility] mg/dL [facility] Urea Nitrogen 16 7 - 30 [facility] mg/dL [facility] Creatinine 0.82 0.66 - [facility] 1.25 [facility] mg/dL [facility] GFR Estimate >90 >60 [facility] Non GFR Calc mL/min/1. [facility] 7m2 [facility] GFR Estimate >90 >60 [facility] If Black GFR Calc mL/min/1. [place] [facility] 7m2 [facility] Calcium 9.2 8.5 - [facility] 10.1 [facility] mg/dL [facility] Specimen Anatomical Collection Method Collection Time Receive d Time (Source) Location / / Volume Laterality Blood specimen 04/10/2015 2:06 PM 015 2:07 (specimen) CDT PM CDT Yulisa [facility] - BLOOD ORDERABLES Performing Organization Address City/State/ZIP Code Phon e Number [facility] [address] [place] [address] [facility] documented in this encounter Visit Diagnoses [...] organs documented in this encounter Care Teams User Support Analyst Supervisor Relationship Specialty Start Date End Date Song, Ladan PCP - General 09/29/14 [facility] [address] [facility] [address] [place], [place] [address] Yulisa Bernabe PA Physician Muck Miner Blasting Physician Muck Miner Blasting 03/16/[address] [place] [address] [address] [place], [place] [id number] documented as of this encounter
--- OUTSIDE RECORDS SUMMARY | 2022-08-19 10:43 | XMS_ITS | Encounter Summary ---
:1960 Author Organization [place] Address [address] [place] [address] Care Team Providers Name Role Phone DuncanLadan [...] on filedocumented in this encounter Care Teams Fiscal Manager Relationship Specialty Start Date End Date Ladan Song PCP - General 09/29/14 [facility] [address] [place] [address] [place] [address] Yulisa Bernabe PA Physician Telescope Repairer Physician Telescope Repairer 03/16/15 420 [facility] 394 [place] [address] documented as of this encounter
--- OUTSIDE RECORDS SUMMARY | 2022-08-19 10:43 | XMS_ITS | Encounter Summary ---
:1960 Author Organization [place] Address [address] [place] [address] Care Team Providers Name Role Phone Ladan Song Primary Care Provider Yulisa Bernabe Unavailable Reason for Visit Reason Onset Date Comments Call Back 07/10/2016 Encounter Details Date Type Department Care Team Description 07/10/2016 Telephone [facility] Urology and Inst Yulisa Farah PA Call Back for Prostate and Urologic [facility] Urology Cancers [address] [place] [id number] [place], [place] [address] [place] [address] [place] [phone] Social History Tobacco Use Types Packs/Day Years [...] on filedocumented in this encounter Care Teams Tennis Instructor Relationship Specialty Start Date End Date Ladan Song PCP - General 09/29/14 [facility] [address] [facility] [address] [place] [address] Yulisa Bernabe PA Physician Hand Compositor Physician Hand Compositor 03/16/[address] [place] [address] 394 [place], [place] [id number] documented as of this encounter
--- OUTSIDE RECORDS SUMMARY | 2022-08-19 10:44 | XMS_ITS | Clinical Summary ---
:1960 Author Organization [facility] [place] [address] Care Team Providers Name Role Phone Meghna [...] Encounters Date Type Specialty Care Team Description 08/13/2022 Telephone Daniella Estrada PA [facility] 08/13/2022 Telephone Daniella Estrada PA Prior Authorization (trospium 60 mg Extended-Releas e capsule DENIED) 08/11/2022 Office Visit Daniella Estrada PA Consu [...] Smokeless Tobacco: Never Tobacco Cessation: Counseling Given: Yes Alcohol Use Standard Drinks/Week Comments Never 0 (1 standard drink = 0.6 oz pure alcoho l) Sex Assigned at Date Recorded Not on file COVID-19 Exposure Response Date Recorded In the last 10 days, have you been in contact with No / Unsu re 08/11/2022 8:02 AM FEE CLERK someone who was confirmed or suspected to have Coronavirus/COVID-19? Obstetrics History Last Filed Vital Signs Vital Sign Reading Time Taken Comments Blood Pressure 153/68 06/03/2022 7:58 AM CDT Pulse 100 08/11/2022 8:19 AM FEE CLERK Temperature - - Respiratory Rate - - Oxygen Saturation 98% 08/11/2022 8:19 AM FEE CLERK Inhaled Oxygen Concentration - - Weight - - Height 177.5 cm (5' 9.88) 06/03/2022 7:58 AM CDT Body Mass Index - - Plan of Treatment Upcoming Encounters Date Type Specialty Care Team Description 09/22/2022 Office Visit Daniella Estrada PA [address] [place] [address] (Wo rk) Health Maintenance Due Date [...] Benign prostatic Resul ts for this MICROSCOPIC FEE CLERK hyperplasia (BPH) procedure are in with post-void the results dribbling section. UA W/ SEDIMENT EXAM Routine 08/11/2022 8:00 AM Benign prostati c Results for this REFLEXED PER FEE CLERK hyperplasia (BPH) procedure are in CRITERIA with post-void the results dribbling section. [place] GUNJAN POST-VOIDING Routine 08/11/2022 12:00 Benign prostatic Results for this RESIDUAL AM FEE CLERK hyperplasia (BPH) procedure are in URINE&/BLADDER CAP with post-void the res ults dribbling section. PLATELET ESTIMATE Routine 06/03/2022 10:08 [...] Results (ABNORMAL) URINALYSIS MICROSCOPIC (08/11/2022 8:00 AM FEE CLERK)Only the most recent of2 resultswithin the time period is included. [facility] gist Method Time Signature RBC None Seen 0-2, None 08/11/2022 [facility] Seen /HPF 9:43 AM [facility] WBC 11-25 (A) 0-2, 3-5, 08/11/2022 [facility] None Seen 9:43 AM [facility] BACTERIA Many (A) None 08/11/2022 [facility] Seen, 9:43 AM [facility] Rare, Few [facility] Bacteria/ [facility] EPITHELIAL Moderate (A) None 08/11/2022 [facility] CELLS Seen, Few 9:43 AM [facility] Epi/[facility] Specimen Anatomical Collection Method Collection Time Receive d Time (Source) Location / / Volume Laterality Urine URINE SPECIMEN / Non-Blood / 08/11/2022 8:00 AM 08/11 9:14 Unknown Unknown FEE CLERK AM FEE CLERK Daniella HOGAN URINE Performing Organization Address City/State/ZIP Code Phon e Number [place] [address] [place] [address] [facility] (ABNORMAL) UA W/ SEDIMENT EXAM REFLEXED PER CRITERIA (08/11/2022 8:00 AM FEE CLERK) Only the most recent of2 resultswithin the time period is included. [facility] gist Method Time Signature COLOR Yellow Yellow Color 08/11/2022 [facility] 9:39 AM [facility] CLARITY Clear Clear 08/11/2022 [facility] Clarity 9:39 AM [facility] SPECIFIC >=1.030 (A) 1.010, 08/11/2022 [facility] GRAVITY,URINE 1.015, 9:39 AM [facility] 1.020, 1.025 [facility] PH,URINE 5.5 6.0, 7.0, 08/11/2022 [facility] 8.0, 5.5, 9:39 AM [facility] 6.5, 7.5, [facility] 8.5 [facility] UROBILINOGEN, Normal Normal EU/dl 08/11/2022 [facility] QUALITATIVE 9:39 AM [facility] PROTEIN, 100 (A) Negative 08/11/2022 [facility] URINE mg/dL 9:39 AM [facility] GLUCOSE, Negative Negative 08/11/2022 [facility] URINE mg/dL 9:39 AM [facility] KETONES,URINE Trace (A) Negative 08/11/2022 [facility] mg/dL 9:39 AM [facility] BILIRUBIN,URI Negative Negative 08/11/2022 [facility] NE 9:39 AM [facility] OCCULT Negative Negative 08/11/2022 [facility] BLOOD,URINE 9:39 AM [facility] NITRITE Positive (A) Negative 08/11/2022 [facility] 9:39 AM [facility] LEUKOCYTE Small (A) Negative 08/11/2022 [facility] ESTERASE 9:39 AM [facility] Specimen Anatomical Collection Method Collection Time Receive d Time (Source) Location / / Volume Laterality Urine URINE SPECIMEN / Non-Blood / 08/11/2022 8:00 AM 08/11 9:14 Unknown Unknown FEE CLERK AM FEE CLERK Daniella HOGAN URINE Performing Organization Address City/State/ZIP Code Phon e Number [address] [address] [facility] [place] GUN[place]AN POST-VOIDING RESIDUAL URINE&/BLADDER CAP (08/11/2022 12:00 AM FEE CLERK) Narrative This result has an attachment that is no t available. Daniella HOGAN PB - URINARY SYSTEM SERVICES (ABNORMAL) RED CELL MORPHOLOGY (06/03/2022 10:08 AM T) [facility] Method Time Signature ELLIPTOCYTES Few 06/03/2022 [facility] 11:22 AM [facility] POLYCHROMASIA Slight 06/03/2022 [facility] 11:22 AM [facility] RBC COMMENT Present (A) RBC 06/03/2022 [facility] morphology [facility] normal, RBC morphology within normal limits for newborns. Specimen Anatomical Collection Method Collection Time Receive d Time (Source) Location / / Volume Laterality Blood BLOOD SPECIMEN / Butterfly / 06/03/2022 10:08 022 Unknown Unknown AM CDT 10:11 AM CDT Meghna Fox HEMATOLOGY Performing Organization Address City/State/ZIP Code Phon e Number [facility] [address] [place] [address] PLATELET ESTIMATE (06/03/2022 10:08 AM CDT) [facility] Method Time Signature PLATELET Adequate Adequate, No 06/03/2022 [facility] ESTIMATE estimate 11:22 AM [facility] Specimen Anatomical Collection Method Collection Time Receive d Time (Source) Location / / Volume Laterality Blood BLOOD SPECIMEN / Butterfly / 06/03/2022 10:08 022 Unknown Unknown AM CDT 10:11 AM CDT Meghna Fox DO HEMATOLOGY Performing Organization Address City/[facility]/ZIP Code Phon e Number [facility] [address] [place] [address] (ABNORMAL) CBC W PLT NO DIFF (06/03/2022 10:08 AM CDT) [facility] Method Time Signature WHITE BLOOD 6.2 4.5 - 11.0 06/03/2022 [facility] COUNT thou/cu mm 11:22 AM [facility] RED BLOOD COUNT 3.57 (L) 4.30 - 06/03/2022 [facility] 5.90 11:22 AM [facility] mil/cu mm CLINIC HEMOGLOBIN 7.8 (L) 13.5 - 06/03/2022 [facility] 17.5 g/dL 11:22 AM [facility] HEMATOCRIT 27.2 (L) 37.0 - 06/03/2022 [facility] 53.0 % 11:22 AM [facility] MCV 76 (L) 80 - 100 06/03/2022 [facility] fL 11:22 AM [facility] MCH 21.8 (L) 26.0 - 06/03/2022 [facility] 34.0 pg 11:22 AM [facility] MCHC 28.7 (L) 32.0 - 06/03/2022 [facility] 36.0 g/dL 11:22 AM T [facility] RDW 19.6 (H) 11.5 - 06/03/2022 [facility] 15.5 % 11:22 AM CDT [facility] PLATELET COUNT 198 140 - 440 06/03/2022 [facility] thou/cu mm 11:22 AM CDT [facility] MPV 10.5 6.5 - 11.0 06/03/2022 [facility] fL 11:22 AM CDT [facility] Specimen Anatomical Collection Method Collection Time Receive d Time (Source) Location / / Volume Laterality Blood BLOOD SPECIMEN / Butterfly / 06/03/2022 10:08 022 Unknown Unknown AM CDT 10:11 AM CDT Meghna Fox DO HEMATOLOGY Performing Organization Address City/State/ZIP Code Phon e Number [facility] [address] [place] [address] PSA TOTAL (DIAGNOSTIC) (06/03/2022 10:08 AM CDT) athologist Signature PSA TOTAL 0.92 <4.00 06/04/2022 [facility] (DIAGNOSTIC) ng/mL 6:29 AM CDT LABORATORY-[facility]ORATORY Specimen Anatomical Collection Method Collection Time Receive d Time (Source) Location / / Volume Laterality Blood BLOOD SPECIMEN / Butterfly / 06/03/2022 10:08 022 Unknown Unknown AM CDT 10:11 AM CDT Narrative [facility] LABORATORY-CENTRAL LABORAT ORY - 06/04/2022 6:29 AM CDT The percentage of Free PSA can be used to enhance the differentiation of prostate cancer from benign prostatic disease in subjects whose PSA levels are between 4.00 and 10.00 ng/mL. The % Free PSA will be reported only for PSA values between 4.00 and 10.00 ng/mL. The [employer] Professor PSA assay is a Chem iluminescent Microparticle Immunoassay(CMIA). Assay values obtained with different assay methods cannot be used interchangeably due to differences in assay method s and reagent specificity. ? Meghna Fox DO CHEMISTRY Performing Organization Address City/State/ZIP Code Phon e Number [facility] [address] [place] [address] LABORATORY-CENTRAL 2000 LABORATORY LIPID PANEL (06/03/2022 10:08 AM CDT) [facility] gist Method Time Signature CHOLESTEROL,TOTAL 130 100 - 199 06/04/2022 [facility] mg/dL 6:08 AM CDT LABORATORY-ANNI TRAL LABORATORY TRIGLYCERIDES 79 <150 06/04/2022 [facility] mg/dL 6:08 AM CDT LABORATORY-[facility] TRAL LABORATORY HDL CHOLESTEROL 53 >40 mg/dL 06/04/2022 [facility] 6:08 AM CDT LABORAT[facility] TRAL LABORATORY NON-HDL 77 <145 06/04/2022 [facility] CHOLESTEROL mg/dl 6:08 AM CDT LABORATORY-[facility] TRAL LABORATORY CHOL/HDL RATIO 2.45 <4.50 06/04/2022 [facility] 6:08 AM CDT LABORATORY-ANNI TRAL LABORATORY [...] Organization Address City/State/ZIP Code Phon e Number [facility] [employer] [address] [place] [address] LABORATORY-CENTRAL 2000 LABORATORY (ABNORMAL) BASIC METABOLIC PANEL (06/03/2022 10:08 AM CDT) [facility] Signature SODIUM 136 135 - 145 06/04/2022 [facility] mmol/L 6:06 AM CDT LABORATORY-ANNI TRAL LABORATORY POTASSIUM 5.2 (H) 3.5 - 5.0 06/04/2022 [facility] mmol/L 6:06 AM CDT LABORATORY-ANNI TRAL LABORATORY CHLORIDE 108 98 - 110 06/04/2022 [facility] mmol/L 6:06 AM CDT LABORATORY-ANNI TRAL LABORATORY CO2,TOTAL 20 (L) 21 - 31 06/04/2022 [facility] mmol/L 6:06 AM CDT LABORATORY-ANNI TRAL LABORATORY ANION GAP 8 5 - 18 06/04/2022 [facility] 6:06 AM CDT LABORATORY-ANNI TRAL LABORATORY GLUCOSE 111 (H) 65 - 100 06/04/2022 [facility] [employer] mg/dL 6:06 AM CDT LABORATORY-ANNI TRAL LABORATORY CALCIUM 8.1 (L) 8.5 - 10.5 06/04/2022 [facility] mg/dL 6:06 AM CDT LABORATORY-ANNI TRAL LABORATORY BUN 25 8 - 25 06/04/2022 [facility] mg/dL 6:06 AM CDT LABORATORY-ANNI TRAL LABORATORY CREATININE 0.97 0.72 - 06/04/2022 [facility] 1.25 mg/dL 6:06 AM CDT LABORATORY-ANNI TRAL LABORATORY BUN/CREAT RATIO 26 (H) 10 - 20 06/04/2022 [facility] 6:06 AM CDT LABORATORY-ANNI TRAL LABORATORY eGFR 88 (L) >90 06/04/2022 [facility] mL/min/1.7 6:06 AM CDT LABORATORY-ANNI 3m2 [...] Organization Address City/State/ZIP Code Phon e Number [facility] [address] [place] [address] LABORATORY-CENTRAL 2000 LABORATORY (ABNORMAL) URINE CULTURE (06/03/2022 10:05 AM CDT) [facility] Method Time Signature CULTURE RESULT (A) 06/06/2022 [facility] [employer] 6:38 AM CDT LABORATORY-ANNI TRAL LABORATORY CULTURE >100,000 CFU/mL 06/06/2022 [facility] Escherichia 6:38 AM CDT LABORATORY-ANNI coli [...] Organization Address City/State/ZIP Code Phon e Number [employer] [address] [place] [address] LABORATORY-CENTRAL 2000 LABORATORY from Last 3 Months Insurance Payer Benefit Plan / Subscriber ID Effective Dates Phone Addre ss Type Group BLUE CROSS [place] BLUE ADVANTAGE [id number] 2018-Present [address] [address] [place] [address] Care Teams Nurse Emergency Room Relationship Specialty Start Date End Date Meghna Fox DO PCP - General Family Practice 02/11/22 [address] [place] [address]
--- OUTSIDE RECORDS SUMMARY | 2022-08-19 10:44 | XMS_ITS | Encounter Summary ---
:1960 Author Organization [facility] Address [address] [place] [address] Care Team Providers Name Role Phone Unavailable Primary Care Provider Unavailable Encounter Details Date Type Department Care Team Description 04/02/2010 Office Visit-[facility] INTERFACE [facility] DEPT Provider, [facility] [place] Nurs e Social History Tobacco Use Types Packs/Day Years Used Date Smoking Tobacco: Never Assessed Sex Assigned at Date Recorded Not on file documented as of this encounter Progress Notes Provider, [facility] [place] Nurse - 04/02/2010 1:38 PM CDT Trommel Tender: Mildred Linares Status: Final - Signature Encounter: [...] by:Mildred Linares L.P.N. Apr 02 2010 1:39PM SOCIAL MEDIA DESIGNER documented in this encounter Plan of Treatment Not on filedocumented as of this encounter Visit Diagnoses Not on filedocumented in this encounter
--- OUTSIDE RECORDS SUMMARY | 2022-08-19 10:44 | XMS_ITS | Encounter Summary ---
:1960 Author Organization [facility] Address [address] [place] [address] Care Team Providers Name Role Phone Unavailable Primary Care Provider Unavailable Encounter Details Date Type Department Care Team Description 07/26/2013 Office Visit [facility] Chris Mehreen Av ed adjustment System in [place] HAKEEM Roberson reaction (Primary Dx) Psychiatry [address] [phone] Social History Tobacco Use Types Packs/Day Years [...] (336 lb 9.6 oz) 07/27/2013 4:25 PM TELEPHONE ORDER CLERK Height - - Body Mass Index - - documented in this encounter Progress Notes Luz Lindsay - 07/28/2013 7:18 AM CST BRIEF DISCUSSION NOTE: Time spent with client approximately 45 - 50 minutes. This is a note for the 8th and final session of the [facility] Program group. The patient was active in the participation of this group today. The topic for discussion was preventing relapse and continued motivation for weight loss. The patient was given a letter stating that he completed all of the eight group sessions. Mr. Luna weighed in today at 336.6 pounds. AM:phil D: 07-27-13 Mehreen Perez, WAN SUPPORT SPECIALIST T: 07-28-13 PHONE ORDER CLERK documented in this encounter Plan of Treatment Not on filedocumented as of this encounter Visit Diagnoses Diagnosis Unspecified adjustment reaction - Primar y documented in this encounter
--- OUTSIDE RECORDS SUMMARY | 2022-08-19 10:44 | XMS_ITS | Encounter Summary ---
:1960 Author [facility] Address [address] [place] [address] Care Team Providers Name Role Phone Cintia Cobb MD Primary Care Provider [phone] Reason for Referral Therapies (Routine) - New Request Specialty Diagnoses / Procedures Referred By Contact Refer red To Contact Diagnoses Closed nondisplaced fracture of left tibial plateau with routine healing, subsequent encounter Delgado Gottlieb MD [address] [place] [address] Referral ID Status Reason Start Date Expiration Date Visits V isits Requested Authorized [id number] New Request 08/04/2022 08/04/2023 1 1 Scheduling [...] ask your clinician's staff to assist you. GHT CAR REPAIRER Procedure/Equipment (Routine) - Incomplete Specialty Diagnoses / Procedures Referred By Contact Refer red To Contact Diagnoses Closed nondisplaced fracture of left tibial plateau with routine healing, subsequent encounter Delgado Gottlieb MD Procedures XR Knee Lt 2 Views [address] [place] [address] Referral ID Status Reason Start Date Expiration Date Visits V isits Requested Authorized [id number] Incomplete 08/04/2022 11/03/2023 1 1 GHT CAR REPAIRER Reason for Visit Reason Comments FOLLOW-UP,FRACTURE Encounter [...] encounter [address] [place] [address] [place], [place] [phone] Social History Tobacco Use Types Packs/Day Years [...] 1:00 PM CST ORTHOPAEDICS DEPARTMENT PHONE NUMBER: [phone] Reason for today's visit: FOLLOW-UP,FRACTURE Treatment plan: [...] TIME PROVIDER LOCATION APPT NOTES ( ) [facility]: [address] [place], [place] ( ) [facility]: [address] [place], [place] ( ) Other: Follow up left tibial plateau fracture DOI: 06/21/2022 ( ) [facility]: [address] [place] [address] ( ) [facility] [address] [place], [place] ( ) Other: If you have any questions about your visit, your symptoms, your medication, your test results or it is not clear what your diagnosis or treatment plan is please contact us at [phone] or send us a secure message via [employer]. You may receive a survey in the mail regarding your visit today. Your feedback is very important to us, please take a moment to complete the survey which is completely anonymous. If you would like to speak to someone specifically, you may contact the clinic at [phone] and your call will be directed to someone on our leadership team. Thank you for choosing Delgado Gottlieb MD and Counts include 234 beds at the [facility]. Did you know, you can now reach us for appointment scheduling seven days a week, 365 days a year from 7am to 9pm? Just call our main number, , listen to the prompts and you will be connected to a computer help desk representative who can assist you with your appointment scheduling needs. GHT CAR REPAIRER documented in this encounter Progress Notes Delgado [...] seem to be shrinking in size. 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 Delgado Gottlieb MD Senior Project Manager [facility] Department of Orthopaedic Surgery [facility] GHT CAR REPAIRER documented in this encounter Plan of Treatment Upcoming Encounters Date Type Specialty Care Team Description 09/15/2022 Appointment Orthopedics Delgado Gottlieb MD [address] [place] [phone] (Gavi presley) 10/08/2022 Appointment Orthopedics Delgado Gottlieb MD [address] [place] [phone] (Gavi presley) 05/27/2023 Appointment Chemo Therapy/Infusion Services Scheduled Referrals Name Type Priority Associated Diagnoses Order S chedule Physical Therapy - Referral Routine Closed nondisplaced Or dered: 08/04/2022 Ortho [[id number]] fracture of left tibial plateau with routine healing, subsequent encounter documented as of this encounter Results XR Knee Lt 2 Views (08/04/2022 12:52 PM FREIGHT CAR REPAIRER) Anatomical Region Laterality Modality Lower Extremity, Knee Computed Radiograp hy Specimen (Source) Anatomical Collection Method Collection Time Re ceived Time Location / / Volume Laterality 08/04/2022 12:52 PM FREIGHT CAR REPAIRER Narrative 08/04/2022 6:53 PM FREIGHT CAR REPAIRER EXAM: XR KNEE LT 2 VIEWS LOCATION: [place] [address] DATE/TIME: 08/04/2022 12:52 PM INDICATION: Left distal [...] KNEE LT 2 VIEWS LOCATION: [facility] 435 DATE/TIME: 08/04/2022 12:52 PM INDICATION: Left [...] r documented in this encounter Care Teams Chief Security Officer Relationship Specialty Start Date End Date Cintia Cobb MD PCP - General Family Practice 09/30/21 documented as of this encounter
--- OUTSIDE RECORDS SUMMARY | 2022-08-19 10:44 | XMS_ITS | Encounter Summary ---
:1960 [facility] Address [address] [facility] [place] [address] Care Team Providers Name Role Phone Cintia Cobb MD Primary Care Provider [phone] Reason for Visit Reason Comments Nurse Return Call Request Requesting to speak with RN Encounter Details Date Type Department Care Team Description 07/22/2022 Telephone [facility] Delmer Valladares, Nurse Return Call CENTER [facility] Request (Requesting to [address] [place] [address] Dr speak with RN) [place], [place] [address] [place], [place] [phone] (Wo rk) Social History Tobacco Use Types [...] could consider it in the future. Delmer IPLE SCLEROSIS NURSE Loly Kelley RN - 07/23/2022 9:14 AM [...] healing? Sending to Delmer to further advise IPLE SCLEROSIS NURSE Nancy Herrera - 07/22/2022 2:29 PM CST [...] you been seen for this recently?: n/a [Motel Clerk/Appt Center: If yes, please include date and provider.] Is it okay to leave detailed message on your voicemail? No voicemail set up per patient. Please callpatient's mobile at [phone] per request. [Motel Clerk/Appt Center: If this call is after 3 p.m., communicate to patient: If we are not able to get back to you by the end of the day and your symptoms worsen please contact the Careline] IPLE SCLEROSIS NURSE documented in this encounter Plan of Treatment Upcoming Encounters Date Type Specialty Care Team Description 09/15/2022 Appointment Orthopedics Delgado Gottlieb MD [address] [place], [place] [address] (Wo rk) 10/08/2022 Appointment Orthopedics Delgado Gottlieb MD [address] [place], [place] [address] (Wo rk) 05/27/2023 Appointment Chemo Therapy/Infusion Services documented as of this encounter Visit Diagnoses Not on filedocumented in this encounter Care Teams Direct Service Worker Relationship Specialty Start Date End Date Cintia Cobb MD PCP - General Family Practice 09/30/21 documented as of this encounter
--- OUTSIDE RECORDS SUMMARY | 2022-08-19 10:44 | XMS_ITS | Encounter Summary ---
:1960 Author Organization [facility] Address [address] [place] [address] Care Team Providers Name Role Phone Unavailable Primary Care Provider Unavailable Encounter Details Date Type Department Care Team Description 02/19/2010 Office Visit-[facility] INTERFACE [facility] DEPT Provider, [facility] Nurs e Social History Tobacco Use Types Packs/Day Years Used Date Smoking Tobacco: Never Assessed Sex Assigned at Date Recorded Not on file documented as of this encounter Progress Notes Provider, [facility] Nurse - 02/19/2010 1:39 PM CDT Director Cloud Transformation: Mildred Linares Status: Final - Signature Encounter: [...] results and visit notes form [facility]. [phone] please call patient. [phone] Thanks Tonie faxed to [phone] mildred Electronically signed by:Mildred Linares L.P.N. Feb 19 2010 1:39PM CPO documented in this encounter Plan of Treatment Not on filedocumented as of this encounter Visit Diagnoses Not on filedocumented in this encounter
--- OUTSIDE RECORDS SUMMARY | 2022-08-19 10:44 | XMS_ITS | Clinical Summary ---
:1960 [facility] Address [address] [place] [address] Care Team Providers Name Role Phone Cintia Cobb MD Primary Care Provider [phone] Source Comments You are receiving this document [...] for each transition of care or referral. [employer] Allergies Active Allergy Reactions Severity Noted Date [...] Added automatically from request for emiliano flo [id number] Encounters Date Type Specialty Care Team Description [...] Scherer MD 06/16/2022 Telephone Orthopedics Delgado Gottlieb QUESTIONSCHIDI MD 06/13/2022 Refill Orthopedics Cesar Scherer Medication Questions MD Terri 05/27/2022 Hospital Encounter Chemo Anali Lam, Close d fracture of Therapy/Infusion Pat Brenda, distal end of left Services MBBS femur with rout ine healing, unspec ified fracture morpho logy, subsequent enco unter (Primary Dx) from Last 3 Months Social History Tobacco [...] 09/15/2022 Appointment Orthopedics Delgado Gottlieb MD [address] [place], [place] [address] (Wo rk) 10/08/2022 Appointment Orthopedics Delgado Gottlieb MD [address] [place], [place] [address] (Wo rk) 05/27/2023 Appointment [...] to pic Medical Devices Implanted Type Area Basic Sciences Dean Device Shelf Model / Identifier Expiration Serial / Date Lot <Historic:?? [id number]-4/15/2017 <Histori [employer] / Implanted: 01/19/2017 (Quantity not on file) c:?? Elect rophysiology [id number] / Cardiac- Rhythm Description: [place] [address] [id number] Pacemaker Implant ID:[id number] Pacemaker Leads are [place]. 5mm Locking Screw For Im Nails;80mm DEVICE Left: FEMUR DISTAL DePuy Synthes - [id number] / Implanted: Qty: 1 on 10/01/2021 by Delgado Gottlieb MD at [facility] Trauma / Description: RFN ADVANCED RETROGRADE FEM ORAL NAIL SYSTEM Procedures Procedure Name Priority Date/Time Associated Diagnosis Comme nts XR KNEE LT 2 VIEWS Routine 08/04/2022 12:52 PM Closed fracture of Results for this DISPATCHER MOTOR VEHICLE distal end of left procedure are in [...] Knee Lt 2 Views (08/04/2022 12:52 PM DISPATCHER MOTOR VEHICLE)Only the most recent of2 results within the time period is included. Anatomical Region Laterality Modality Lower Extremity, Knee Computed Radiograp hy Specimen (Source) Anatomical Collection Method Collection Time Re ceived Time Location / / Volume Laterality 08/04/2022 12:52 PM DISPATCHER MOTOR VEHICLE Narrative 08/04/2022 6:53 PM DISPATCHER MOTOR VEHICLE EXAM: XR KNEE LT 2 VIEWS LOCATION: [facility] [address] DATE/TIME: 08/04/2022 12:52 PM INDICATION: [...] LOCATION: [facility] 435 DATE/TIME: 08/04/2022 12:52 PM INDICATION: Left [...] CT KNEE LT WO IV CONT LOCATION: [place] [address] DATE/TIME: 06/25/2022 11:21 AM INDICATION: Tibial tubercle [...] fract ure. Hardware partially seen on the childcare attendant images in the distal femur from lateral [...] fracture. Hardware parti ally seen on the childcare attendant images in the distal femur from lateral [...] ss Type Group BCBS BCBS PMAP BLUE [id number] 2018-Present [address] [address] [place] [address] [phone] (Home) [place] [address] Luna, Ed J Personal/Family Self 1960 [address] (Home) [place] [address] Luna, Ed J Personal/Family Self 1960 [address] (Home) [place] [address] CARLYLE,ED J Personal/Family Advance Directives Latest Code Status on File Code Status Date Activated Date Inactivated Comments Full Code 01/27/2022 2:04 PM 01/27/2022 8:57 PM Code Status History Code Status Date Activated Date Inactivated Comments Full Code 10/01/2021 8:29 AM 10/03/2021 5:59 PM Full Code 09/30/2021 9:42 PM 10/01/2021 8:29 AM Full Code 08/18/2017 4:40 PM 08/18/2017 8:44 PM Care Teams Human Resources Trainee Relationship Specialty Start Date End Date Cintia Cobb MD PCP - General Family Practice 09/30/21
--- OUTSIDE RECORDS SUMMARY | 2022-08-19 10:44 | XMS_ITS | Encounter Summary ---
:1960 Author Organization [facility] Address [address] [place] [address] Care Team Providers Name Role Phone Ladan Song Primary Care Provider Encounter Details Date Type Department Care Team Description 10/12/2014 Allied Health/Nurse Surgery Clinic Crissy Amador Visit [address] [facility] 1st Floor, Clinic [address]E [address] [facility] [address] [facility] [address] [place] [address] [phone] Social History Tobacco Use Types Packs/Day Years [...] restaurant; fast food occasionally Types of Foods: Ethiopian salad; [employer] hamburger Physical Activity: Types of [...] 60 minutes. Crissy Donaldson, ROBERT, LD, CLT UNICABLE DISEASE SPECIALIST documented in this encounter Plan of Treatment Not on filedocumented as of this encounter Visit Diagnoses Not on filedocumented in this encounter Care Teams Cardiac Nurse Specialist Relationship Specialty Start Date End Date Ladan Song PCP - General 09/29/14 [facility] [address] [place] [address] [place] [address] documented as of this encounter
--- OUTSIDE RECORDS SUMMARY | 2022-08-19 10:44 | XMS_ITS | Encounter Summary ---
:1960 Author Organization [facility] Address [address] [place] [address] Care Team Providers Name Role Phone Unavailable Primary Care Provider Unavailable Encounter Details Date Type Department Care Team Description 07/12/2013 Office Visit [facility] ChrisMehreen ed adjustment System in [place] HAKEEM Roberson reaction (Primary Dx) Psychiatry [address] [phone] Social History Tobacco Use Types Packs/Day Years [...] 154.2 kg (340 lb) 07/14/2013 2:30 PM LAUNDRY MANAGER Height - - Body Mass Index - - documented in this encounter Progress Notes Luz Lindsay - 07/18/2013 5:25 AM CST BRIEF DISCUSSION NOTE: Time spent with client approximately 45 - 50 minutes. This was our 6th session for the [facility] Program. The participant was present today. This session primarily focused on negative and positive self talk. Other additional topics were unrealistic expectations, inflexibility, all or nothing thinking, depression, anxiety, stress and emotional eating. Ed weighed in today at 340.7 pounds. Ed was invited to join the group next week. AM:phil D: 07-14-13 Mehreen Perez, PSYCHOLOGICAL ANTHROPOLOGIST T: 07-18-13 DRY MANAGER documented in this encounter Plan of Treatment Not on filedocumented as of this encounter Visit Diagnoses Diagnosis Unspecified adjustment reaction - Primar y documented in this encounter
--- OUTSIDE RECORDS SUMMARY | 2022-08-19 10:44 | XMS_ITS | Encounter Summary ---
:1960 Author Organization [facility] Address [address] [place] [address] Care Team Providers Name Role Phone Unavailable Primary Care Provider Unavailable Encounter Details Date Type Department Care Team Description 02/15/2010 Office Visit-P INTERFACE P DEPT Jessee Iniguez [facility] [address] [address] (Wo rk) Social History Tobacco Use Types Packs/Day Years Used Date Smoking Tobacco: Never Assessed Sex Assigned at Date Recorded Not on file documented as of this encounter Progress Notes Estephania Iniguez - 02/15/2010 12:16 PM CDT Electrician Radio: Estephania Iniguez Status: Final - Signature Encounter: [...] by:Estephania Iniguez MA Feb 15 2010 12:22PM COMMERCIAL FINANCE MANAGER documented in this encounter Plan of Treatment Not on filedocumented as of this encounter Visit Diagnoses Not on filedocumented in this encounter
--- OUTSIDE RECORDS SUMMARY | 2022-08-19 10:44 | XMS_ITS | Encounter Summary ---
:1960 Author Organization [facility] Address [address] [place] [address] Care Team Providers Name Role Phone Cintia Cobb MD Primary Care Provider [phone] Reason for Visit Procedure/Equipment (Routine) - Incomplete Specialty Diagnoses / Procedures Referred By Contact Refer red To Contact Diagnoses Closed nondisplaced fracture of left tibial plateau with routine healing, subsequent encounter Delgado Gottlieb MD Procedures XR Knee Lt [address] [place] [address] Referral ID Status Reason Start Date Expiration Date Visits V isits Requested Authorized [id number] Incomplete 08/04/2022 11/03/2023 1 1 Encounter Details Date Type Department Care Team Description 08/04/2022 [facility] Closed frac ture of Procedure Specialty Center Donnell Murray MD distal end of left Radiology [address] femur with routine [address] healing, [place] [address] [place], [place] unspecified [phone] fracture [phone] morphology, (Work) subsequent [phone] encounter (Fax) Social History Tobacco Use Types [...] 09/15/2022 Appointment Orthopedics Delgado Gottlieb MD [address] [place], [place] [address] (Wo rk) 10/08/2022 Appointment Orthopedics Delgado Gottlieb MD [address] [place], [place] [address] (Wo rk) 05/27/2023 Appointment Chemo Therapy/Infusion Services documented as of this encounter Procedures Procedure Name Priority Date/Time Associated Diagnosis Comme nts XR KNEE LT 2 VIEWS Routine 08/04/2022 12:52 PM Closed fracture of Results for this PROBATE JUDGE distal end of left procedure are in femur with routine the resul ts healing, unspecified section . fracture morphology, subsequent encounter documented in this encounter Results XR Knee Lt 2 Views (08/04/2022 12:52 PM PROBATE JUDGE) Anatomical Region Laterality Modality Lower Extremity, Knee Computed Radiograp hy Specimen (Source) Anatomical Collection Method Collection Time Re ceived Time Location / / Volume Laterality 08/04/2022 12:52 PM PROBATE JUDGE Narrative 08/04/2022 6:53 PM PROBATE JUDGE EXAM: XR KNEE LT 2 VIEWS LOCATION: [facility] 435 DATE/TIME: 08/04/2022 12:52 PM INDICATION: [...] EXAM: XR KNEE LT 2 VIEWS LOCATION: [facility] 435 DATE/TIME: 08/04/2022 12:52 PM INDICATION: [...] r documented in this encounter Care Teams Manager Field Service Relationship Specialty Start Date End Date Cintia Cobb MD PCP - General Family Practice 09/30/21 documented as of this encounter
--- OUTSIDE RECORDS SUMMARY | 2022-08-19 10:44 | XMS_ITS | Encounter Summary ---
:1960 Author Organization [facility] Address [address] [place] [address] Care Team Providers Name Role Phone Ladan Song Primary Care Provider Reason for Visit Reason Comments Clinic Care Coordination - Follow-up Encounter Details Date Type Department Care Team Description 10/28/2014 Documentation Only Surgery Clinic X[facility] Care Alan Fountain RN Coordination - n Building [address] [place] [address] Follow-up 1st Floor, Clinic [facility] [address] [place] [address] [address] [phone] [place], [place] (Work) [phone] Social History Tobacco Use [...] filedocumented in this encounter Care Teams Senior Business Manager Relationship Specialty Start Date End Date Ladan Song PCP - General 09/29/14 [facility] [address] [place] [address] [address] [place], [place] [id number] documented as of this encounter
--- OUTSIDE RECORDS SUMMARY | 2022-08-19 10:44 | XMS_ITS | Encounter Summary ---
:1960 Author Organization [facility] Address [address] [place] [address] Care Team Providers Name Role Phone Ladan [...] PA Done (New patient AND UROLOGIC CANCERS [facility] Urology consult for testicular [facility] [address] [facility] pain. ) 4TH FLOOR, [address], [facility] [address] [place] [address] Social History Tobacco Use Types Packs/Day Years Used Date Smoking Tobacco: Never Alcohol Use Standard Drinks/Week Comments No 0 (1 standard drink = 0.6 oz pure alcoho l) Sex Assigned at Date Recorded Not on file documented as of this encounter Plan of Treatment Not on filedocumented as of this encounter Visit Diagnoses Not on filedocumented in this encounter Care Teams Experience Designer Relationship Specialty Start Date End Date Ladan Song PCP - General 09/29/14 [facility] [address] [place] [address] [place] [id number] Yulisa Bernabe PA Physician Superintendent Stevedoring Physician Superintendent Stevedoring 03/16/[address] [place] [address] documented as of this encounter
--- OUTSIDE RECORDS SUMMARY | 2022-08-19 10:44 | XMS_ITS | Encounter Summary ---
:1960 Author Organization [facility] Address [address] [place] [address] Care Team Providers Name Role Phone Unavailable Primary Care Provider Unavailable Encounter Details Date Type Department Care Team Description 07/05/2013 Psyche [facility] Unspecified adjustment System in [place] [facility] [place] reaction (Primary Dx) Psychology [address] [place] [address] [place] [address] [phone] Social History Tobacco Use Types Packs/Day Years Used Date Smoking Tobacco: Never Assessed Sex Assigned at Date Recorded Not on file documented as of this encounter Plan of Treatment Not on filedocumented as of this encounter Visit Diagnoses Diagnosis Unspecified adjustment reaction - Primar y documented in this encounter
--- OUTSIDE RECORDS SUMMARY | 2022-08-19 10:44 | XMS_ITS | Encounter Summary ---
:1960 Author Organization [facility] Address [address] [place] [address] Care Team Providers Name Role Phone Ladan Song Primary Care Provider Reason for Visit Reason Comments Consult Bariatric Consult Encounter Details Date Type Department Care Team Description 10/12/2014 Office Visit Surgery Clinic Joy Núñez Morbid obesity (H) Tigist Mcmullen (Primary Dx) [address] 1st Floor, Clinic [address]E [address] [place] [address] (Wo rk) [address] [phone] Social History Tobacco Use Types Packs/Day Years Used Date Smoking Tobacco: Never Alcohol Use Standard Drinks/Week Comments No 0 (1 standard drink = 0.6 oz pure alcoho l) Sex Assigned at Date Recorded Not on file documented as of this encounter Last Filed Vital Signs Vital Sign Reading Time Taken Comments Blood Pressure 148/82 10/12/2014 11:45 AM FINISH MACHINE TENDER Pulse 51 10/12/2014 11:45 AM FINISH MACHINE TENDER Temperature - - Respiratory Rate - - Oxygen Saturation 96% 10/12/2014 11:45 AM FINISH MACHINE TENDER Inhaled Oxygen Concentration - - Weight 152.5 kg (336 lb 1.6 oz) 10/12/2014 11:45 AM FINISH MACHINE TENDER Height 182.9 cm (6') 10/12/2014 11:45 AM FINISH MACHINE TENDER Body Mass Index 45.58 10/12/2014 11:45 AM FINISH MACHINE TENDER documented in this encounter Patient Instructions Patient InstructionsJoy Núñez PA-C - 10/12/2014 1:55 PM FINISH MACHINE TENDER PREOPERATIVE WEIGHT LOSS SURGERY TASKLIST Tentative surgery: sleeve Approximate Month and Year: Unknown depending on how much of his [facility] visits are transferrable Surgeon: Lien Khanna Insurance Coverage: BC Exclusions: None __x___To view Seminar. To sign Research Consent Form. __x___To register on [employer] __x___To receive Decision Making Handout to read. Letter of support from primary care provider. Labs ordered and treated by primary care provider, results faxed to us. See Surgeon if interested in having surgery here at the [facility] Lose 5 lbs prior to surgery from today`s weight of 336 lbs. Per patient he has already lost 16 lbs at [facility]. Will confirm when receive records Exercise: Minimum [...] you have completed the psychological evaluation, required hand alterations tailor visits and are within5 lbs of your goal weight, call the production planner scheduler to finalize the surgery date and [...] to surgery, call Nicki Bar RN at [phone]. ___Fax #: [phone] (to send preoperative documents). ___Fax #: [phone] (to send FMLA or return to work forms). ___Scheduler for Dr Emmanuel is Nicole. . . ___Scheduler for Dr Salazar is Amol. . . ___Call the Call Center at [phone] for appointment scheduling and nurse help after surgery. SH MACHINE TENDER documented in this encounter Progress Notes Joy Núñez PA-C - 10/12/2014 1:18 PM CST Department of Surgery [facility] Mail Code [address] [place] [address] Date: October 12, 2014 New Bariatric Surgery Consultation RE: Laz Luna MR#: [id number] : 1960 Requesting provider: Cintia Elizondo Chief [...] success with weight loss attempts, such as [facility] program. Over the years he has had a maximum weight loss of 60 lbs. The heaviest weight attained by patient is 400 lbs. No previous weight loss surgery. He has gone through the program and per the patient he is set up to have surgery at [facility] by the end of November. He states [...] on file ??? 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 He reports seeing the [facility] and being all ready for surgery. He [...] the end of November. Get records from [facility]. Approximate surgery month: November 2014 possibly if all complete and candidate for surgery. Seminar watched: yes Research consent signed: no, need to do at [facility] visit Decision making handout given to patient at [facility]: yes Please check you insurance company for an exclusions Letter from PCP and preop labs Aquaculture Program Director visits monthly for 6 months. (saw RD today and may at the [facility] already) Psychological evaluation, get from [facility] Consultations: cardiology: need from [facility] See surgeon possibly after reviewing records from [facility] Required weight loss: 5 lbs prior to surgery from today's weight of 336 lbs 1.6 oz. Must be within 5lbs from your required weight at your 3 week preop weight check in order to keep your surgery date. (Per patient he has already gone from 352 to 336 today at the [facility]) If this is accurate per his [facility] records we will have him lose 5 more pounds from 336 lbs. Goal 331 lbs. 3 weeks before surgery you will go to a pre-op class, anesthesia clinic and nurse clinic visit. These will be scheduled by our schedulers. If any questions prior to surgery, call Nicki Bar RN at [phone]. Call the Call Center at [phone] for appointment scheduling and nurse help after surgery. Sincerely, Joy Núñez PA-C [phone] SH MACHINE TENDER documented in this encounter Nursing Notes Shanice [...] Shanice Noe; October 12, 2014; 11:48 AM??) SH MACHINE TENDER documented in this encounter Miscellaneous Notes Addendum Note - Shanice Noe CMA - 10/20/2014 12:26 PM FINISH MACHINE TENDER Addended by: SHANICE NOE on: 10/20/2014 12:26 PM Modules accepted: Medications SH MACHINE TENDER documented in this encounter Plan of Treatment Not on filedocumented as of this encounter Visit Diagnoses Diagnosis Morbid obesity (H) - Primary Morbid obesity documented in this encounter Care Teams Tape Recorder Repairer Relationship Specialty Start Date End Date Ladan Song PCP - General 09/29/14 [facility] [address] [place] [address] [address] [place] [address] documented as of this encounter
--- OUTSIDE RECORDS SUMMARY | 2022-08-19 10:44 | XMS_ITS | Encounter Summary ---
:1960 Author Organization [place] Address [facility] [place] [address] Care Team Providers Name Role Phone Unavailable Primary Care Provider Unavailable Encounter Details Date Type Department Care Team Description 12/26/2009 Historic Results [facility] Jarvis Heart MD [place] [address] [facility] [address] [place], [place] [address] [phone] Social History Tobacco Use Types Packs/Day Years [...] 2:37 PM 0 2:42 CDT PM CDT Javris Heart MD LAB - BLOOD ORDERABLES Performing Organization Address City/State/ZIP Code Phon e Number MISYS documented in this encounter Visit Diagnoses Not on filedocumented in this encounter
--- OUTSIDE RECORDS SUMMARY | 2022-08-19 10:44 | XMS_ITS | Encounter Summary ---
:1960 Author Organization [place] Address [address] [place] [address] Care Team Providers Name Role Phone Unavailable Primary Care Provider Unavailable Encounter Details Date Type Department Care Team Description 06/21/2013 Psyche [facility] [place] Unspecified adjustment System in [place] [facility] [place] reaction (Primary Dx) Psychology [address] [place] [address] [place] [address] [phone] Social History Tobacco Use Types Packs/Day Years Used Date Smoking Tobacco: Never Assessed Sex Assigned at Date Recorded Not on file documented as of this encounter Plan of Treatment Not on filedocumented as of this encounter Visit Diagnoses Diagnosis Unspecified adjustment reaction - Primar y documented in this encounter
--- OUTSIDE RECORDS SUMMARY | 2022-08-19 10:44 | XMS_ITS | Encounter Summary ---
:1960 Author Organization [facility] Address [address] [place] [address]. [place] [address] Care Team Providers Name Role Phone Unavailable Primary Care Provider Unavailable Encounter Details Date Type Department Care Team Description 12/26/2009 Office Visit-[facility] AND Alex Heart MD [facility] [address] TE [facility]OLOG[facility] [address] [place] [address] 4TH FLOOR, [address] [place] [address], (Fax ) [address] [address] Social History Tobacco Use Types Packs/Day Years Used Date Smoking Tobacco: Never Assessed Sex Assigned at Date Recorded Not on file documented as of this encounter Progress Notes Jarvis Heart - 12/26/2009 1:40 PM CDT Driver Wheelchair: Jarvis Heart Status: Final - Signature Encounter: 26 Dec 2009 Type: Uro Prostate Visit Urologic Surgery [place] Mail Code [address] [place] [address] [place] [address] Office: [phone] RE: Laz Luna : 1960 [place]: 12/26/2009 [...] any children. 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 He does not smoke and does not [...] time to take effect. A flexible 16 Slovenian cystoscope was then inserted through the urethra [...] of Urology [id number] cc: Cindy Moy NP [address] [address] Electronically signed by:Jarvis Haert M.D. Dec 27 2009 4:27PM ARMHOLE BASTER JUMPBASTING documented in this encounter Plan of Treatment Not on filedocumented as of this encounter Visit Diagnoses Not on filedocumented in this encounter
--- OUTSIDE RECORDS SUMMARY | 2022-08-19 10:44 | XMS_ITS | Encounter Summary ---
:1960 Author Organization [facility] Address [address] [place] [address] Care Team Providers Name Role Phone Unavailable Primary Care Provider Unavailable Encounter Details Date Type Department Care Team Description 07/22/2013 Psyche [facility] [place] Unspecified adjustment System in [place] [facility] [place] reaction (Primary Dx) Psychology [address] [place] [address] [place] [address] [phone] Social History Tobacco Use Types Packs/Day Years Used Date Smoking Tobacco: Never Assessed Sex Assigned at Date Recorded Not on file documented as of this encounter Plan of Treatment Not on filedocumented as of this encounter Visit Diagnoses Diagnosis Unspecified adjustment reaction - Primar y documented in this encounter
--- OUTSIDE RECORDS SUMMARY | 2022-08-19 10:44 | XMS_ITS | Encounter Summary ---
:1960 Author Organization [place] Address [address] [place] [address] Care Team Providers Name Role Phone Unavailable Primary Care Provider Unavailable Encounter Details Date Type Department Care Team Description 06/28/2013 Office Visit [facility] Mehreen Perez Av ed adjustment System in [place] HAKEEM Roberson reaction (Primary Dx) Psychiatry [address] [phone] Social History Tobacco Use Types Packs/Day Years [...] This is the 4th session for the [facility] Program on weight management. Specifically accomplished [...] 341.5 pounds. AM:karinas D: 06-28-13 Mehreen Perez, EPOXY SPECIALIST T: 06-29-13 documented in this encounter Plan of Treatment Not on filedocumented as of this encounter Visit Diagnoses Diagnosis Unspecified adjustment reaction - Primar y documented in this encounter
--- OUTSIDE RECORDS SUMMARY | 2022-08-19 10:44 | XMS_ITS | Encounter Summary ---
:1960 Author Organization [place] Address [address] [place] [address] Care Team Providers Name Role Phone Unavailable Primary Care Provider Unavailable Encounter Details Date Type Department Care Team Description 07/19/2013 Psyche [facility] [place] Unspecified adjustment System in [place] [facility] [place] reaction (Primary Dx) Psychology [address] [place] [address] [place] [address] [phone] Social History Tobacco Use Types Packs/Day Years Used Date Smoking Tobacco: Never Assessed Sex Assigned at Date Recorded Not on file documented as of this encounter Plan of Treatment Not on filedocumented as of this encounter Visit Diagnoses Diagnosis Unspecified adjustment reaction - Primar y documented in this encounter
--- OUTSIDE RECORDS SUMMARY | 2022-08-19 10:44 | XMS_ITS | Encounter Summary ---
:1960 Author [facility] Address [address], [place] [address] Care Team Providers Name Role Phone Cintia Cobb MD Primary Care Provider [phone] Reason for Referral Procedure/Equipment (Routine) - Incomplete Specialty Diagnoses / Procedures Referred By Contact Refer red To Contact Diagnoses Pain of left lower leg Delgado Gottlieb MD Procedures US VENOUS LEFT LOWER EXTREM DOPPLER [address] [place] [address] Referral ID Status Reason Start Date Expiration Date Visits V isits Requested Authorized [id number] Incomplete 06/30/2022 09/29/2023 1 1 Reason for Visit Reason Comments QUESTIONS, GENERAL Encounter Details Date Type Department Care Team Description 06/26/2022 Telephone Specialty Center 435 Delgado Gottlieb MD QUESTIONS, GENERAL Orthopedics Clinic [address] [facility] [place] [address] [place] [address] [phone] Social History Tobacco Use Types Packs/Day Years [...] stay. Rosetta Ye RN 07/14/2022, 10:55 AM E MANAGER Gretchen Patino ATC - 07/10/2022 9:22 AM [...] would like us to send this to [facility] he would like us to leave the letter at the front office attendant for someone to pick remover for him. Unfortunately, as Rosetta told the [...] to be emailed to his home at [email or web address]. He was informed that we do not sendletters via email as we do not have a secure portal on our end. He was advised to set up a [employer] account and we could get him some help to do so. He states that he does not know how to set up a [employer] account and does not want all the [...] Rosetta is not in until later today, Relationship Management Lead did reach out to see if we could help with any questions. Left message for pt to call back at [phone] and press the option for [facility]. [...] states that they never called him to [facility]. He was informed that he can call [...] results. Patient has not had it done. [facility] at [phone] and follow the prompt for [facility] and [...] stating that it should be faxed to [phone]. He states I can't read my own [...] is needing the order faxed to [facility] at [phone]. Order has been faxed as requested. Rosetta [...] closer to him or come to the [facility]. He states he has enough other [...] AM CDT Patient was transferred through to sc. Patient is stating that his pain is [...] 09/15/2022 Appointment Orthopedics Delgado Gottlieb MD [address] [place], [place] [address] (Wo rk) 10/08/2022 Appointment Orthopedics Delgado Gottlieb MD [address] [place], [place] [address] (Wo rk) 05/27/2023 Appointment Chemo Therapy/Infusion Services Scheduled Orders Name Type Priority Associated Diagnoses Order S chedule US VENOUS LEFT LOWER Imaging New STAT Pain of left lower l eg Expected: 06/30/2022, EXTREM DOPPLER Expires: 06/08 documented as of this encounter Visit Diagnoses Diagnosis Pain of left lower leg - Primary Pain in limb documented in this encounter Care Teams Viticulture Teacher Relationship Specialty Start Date End Date Cintia Cobb MD PCP - General Family Practice 09/30/21 documented as of this encounter
--- OUTSIDE RECORDS SUMMARY | 2022-08-19 10:44 | XMS_ITS | Encounter Summary ---
:1960 Author Organization [place] Address [address] [place] [address] Care Team Providers Name Role Phone Unavailable Primary Care Provider Unavailable Encounter Details Date Type Department Care Team Description 07/08/2013 Psyche [facility] [place] [facility] [place] [facility] [place] [facility] [place] [address] [place] [address] [place] [address] [phone] (Wo rk) Social History Tobacco Use Types Packs/Day Years Used Date Smoking Tobacco: Never Assessed Sex Assigned at Date Recorded Not on file documented as of this encounter Plan of Treatment Not on filedocumented as of this encounter Visit Diagnoses Not on filedocumented in this encounter
--- OUTSIDE RECORDS SUMMARY | 2022-08-19 10:44 | XMS_ITS | Encounter Summary ---
:1960 Author Organization [place] Address [address] [place] [address] Care Team Providers Name Role Phone Unavailable Primary Care Provider Unavailable Encounter Details Date Type Department Care Team Description 05/03/2013 Psyche [facility] [place] Unspecified adjustment System in [place] [facility] [place] reaction (Primary Dx) Psychology [address] [place] [address] [place] [address] [phone] Social History Tobacco Use Types Packs/Day Years [...]
--- OUTSIDE RECORDS SUMMARY | 2022-08-19 10:44 | XMS_ITS | Encounter Summary ---
:1960 Author Organization [facility] Address [address], [place] [address] Care Team Providers Name Role Phone Cintia Cobb MD Primary Care Provider [phone] Reason for Referral Procedure/Equipment (Routine) - Incomplete Specialty Diagnoses / Procedures Referred By Contact Refer red To Contact Diagnoses Closed fracture of distal end of left femur with routine healing, unspecified fracture morphology, subsequent encounter Delgado Gottlieb MD Procedures XR Knee Lt [address] [place] [address] Referral ID Status Reason Start Date Expiration Date Visits V isits Requested Authorized [id number] Incomplete 07/07/2022 10/06/2023 1 1 Reason for Visit Reason Comments FOLLOW-UP,FRACTURE Encounter Details Date Type Department Care Team Description 07/07/2022 Office Visit Specialty Center Delgado Gottlieb, Domenica sed fracture of 435 Orthopedics Clin ic distal end of left [address] [place] [address] [place], [place] healing, unspecified [phone] fracture morphology, subsequent enco unter (Work) [...] 1:20 PM CDT ORTHOPAEDICS DEPARTMENT PHONE NUMBER: [phone] Reason for today's visit: Non displaced tibial [...] TIME PROVIDER LOCATION APPT NOTES ( ) [facility]: [address] [place] [address] ( ) [facility]: [address] [place] [address] ( ) Other: F/u Non displaced tibial plateau fracture. Pressure sore. ( ) [facility]: [address] [place] [address] ( ) [address] ( ) Other: If you have any questions about your visit, your symptoms, your medication, your test results or it is not clear what your diagnosis or treatment plan is please contact us at [phone] or send us a secure message via [employer]. You may receive surveys via mail, e-mail or text regarding your visit and recovery. Your feedback isvery important to us. Please take a moment to complete them. If you would like to speak to someone specifically, you may contact the clinic at [phone] and your call will be directed to someone on our leadership team. Thank you for choosing [facility]. If you need to schedule an appointment, you may call our office at [phone]. We are open Thursday-Thursday 8 am - [...] such as a splint or brace. 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 Therefore he will continue with his prior pain control regimen which was primarily vlju-pbe-[id number] medication, ice, and elevation. If he does figure out a way to brick picker medication at a pharmacy and would [...] contain unintended word substitutions. Delgado Gottlieb MD Casting And Locker Room Servicer [facility] Department of Orthopaedic Surgery [facility] documented in this encounter Plan of Treatment Upcoming Encounters Date Type Specialty Care Team Description 09/15/2022 Appointment Orthopedics Delgado Gottlieb MD [address] [place] [address] (Gavi presley) 10/08/2022 Appointment Orthopedics Delgado Gottlieb MD [address] [place] [address] (Gavi presley) 05/27/2023 Appointment Chemo [...] EXAM: XR KNEE LT 2 VIEWS LOCATION: [facility] 435 DATE/TIME: 07/07/2022 12:47 PM [...] r documented in this encounter Care Teams Realtime Reporter Relationship Specialty Start Date End Date Cintia Cobb MD PCP - General Family Practice 09/30/21 documented as of this encounter
--- OUTSIDE RECORDS SUMMARY | 2022-08-19 10:44 | XMS_ITS | Encounter Summary ---
:1960 Author Organization [facility] Address [address] [place] [address] Care Team Providers Name Role Phone Cintia Cobb MD Primary Care Provider [phone] Reason for Visit Procedure/Equipment (Routine) - Incomplete Specialty Diagnoses / Procedures Referred By Contact Refer red To Contact Diagnoses Closed fracture of distal end of left femur with routine healing, unspecified fracture morphology, subsequent encounter Delgado Gottlieb MD Procedures XR Knee Lt [address] [place] [address] Referral ID Status Reason Start Date Expiration Date Visits V isits Requested Authorized [id number] Incomplete 07/07/2022 10/06/2023 1 1 Encounter Details Date Type Department Care Team Description 07/07/2022 [facility] Closed frac ture of Procedure Specialty Center Donnell Murray MD distal end of left Radiology [address] femur with routine [address] healing, [place] [address] [place], [place] unspecified [phone] fracture [phone] morphology, (Work) subsequent [phone] encounter (Fax) Social History Tobacco Use Types [...] Appointment Orthopedics Delgado Gottlieb MD [address] [place], [place] [address] (Wo rk) 10/08/2022 Appointment Orthopedics Delgado Gottlieb MD [address] [place], [place] [address] (Wo rk) 05/27/2023 Appointment [...] EXAM: XR KNEE LT 2 VIEWS LOCATION: [place] [address] DATE/TIME: 07/07/2022 12:47 PM INDICATION: Left distal [...] r documented in this encounter Care Teams Share Dairy Farmer Relationship Specialty Start Date End Date Cintia Cobb MD PCP - General Family Practice 09/30/21 documented as of this encounter
--- OUTSIDE RECORDS SUMMARY | 2022-08-19 10:44 | XMS_ITS | Encounter Summary ---
:1960 Author Organization [place] Address [address] [place] [address] Care Team Providers Name Role Phone Unavailable Primary Care Provider Unavailable Encounter Details Date Type Department Care Team Description 07/13/2013 Office Visit [facility] Mehreen Perez ed adjustment System in [place] HAKEEM Roberson reaction (Primary Dx) Psychiatry [address] [phone] Social History Tobacco Use Types Packs/Day Years Used Date Smoking Tobacco: Never Assessed Sex Assigned at Date Recorded Not on file documented as of this encounter Progress Notes Luz Lindsay - 07/18/2013 5:12 AM CST BRIEF DISCUSSION NOTE: Time spent with client approximately 45 - 50 minutes. The patient appoints to the clinic for a missed session of the [facility] Program. Session #2 was the topic of discussion for our meeting today. The session primarily focused on goal setting long termand short term. We also spoke briefly about return to work and dietary changes post surgery that will need to occur. The patient did report meeting with a dietitian over in the [facility] where more of this was being discussed. The material was presented from the book My Weight Loss Solution a [facility] Guide. The patient participated actively in discussion one-to-one. No weight was obtained today. The patient was invited to join the group next week. AM:phil D: 07-14-13 CAROL Graf T: 07-18-13 [facility] DRUMMER documented in this encounter Plan of Treatment Not on filedocumented as of this encounter Visit Diagnoses Diagnosis Unspecified adjustment reaction - Primar y documented in this encounter
--- OUTSIDE RECORDS SUMMARY | 2022-08-19 10:44 | XMS_ITS | Encounter Summary ---
:1960 Author Organization [facility] Address [address] [place] [address] Care Team Providers Name Role Phone Unavailable Primary Care Provider Unavailable Encounter Details Date Type Department Care Team Description 12/26/2009 Office Visit-[facility] INTERFACE [facility] DEPT Provider, [facility] Nurs e Social History Tobacco Use Types Packs/Day Years Used Date Smoking Tobacco: Never Assessed Sex Assigned at Date Recorded Not on file documented as of this encounter Progress Notes Provider, [facility] Nurse - 12/26/2009 1:40 PM CDT Plumbing Installer: Radha Morales Status: Signed Encounter: 26 Dec [...] By: Radha Morales L.P.N.; 12/27/2009 10:54 AM CIRCULAR SAW EDGE FUSER; Author. Provider, [facility] Nurse - 12/26/2009 1:40 PM CDT Plumbing Installer: Radha Morales Status: Final Encounter: 26 Dec 2009 Type: Rooming Note Reason For Visit New leakage and sd Do you have any other appointments, tests or procedures within the [facility] system for this same day? No. Pain [...] By: Radha Morales L.P.N.; 12/26/2009 1:30 PM CIRCULAR SAW EDGE FUSER; Author. documented in this encounter Plan of Treatment Not on filedocumented as of this encounter Visit Diagnoses Not on filedocumented in this encounter
--- OUTSIDE RECORDS SUMMARY | 2022-08-19 10:44 | XMS_ITS | Encounter Summary ---
:1960 Author Organization [facility] Address [address] [place] [address] Care Team Providers Name Role Phone Unavailable Primary Care Provider Unavailable Encounter Details Date Type Department Care Team Description 03/29/2010 Office Visit-[facility] INTERFACE [facility] DEPT Unknown, Provider Social History Tobacco Use Types Packs/Day Years Used Date Smoking Tobacco: Never Assessed Sex Assigned at Date Recorded Not on file documented as of this encounter Progress Notes Unknown, Provider - 03/29/2010 11:54 AM CDT Merchant Mill Utility Worker: Mallorie Armendariz Status: Final - Signature Encounter: [...] transferred the call. Electronically signed by:Mallorie Armendariz [facility] Mar 29 2010 11:57AM LAW PROFESSOR documented in this encounter Plan of Treatment Not on filedocumented as of this encounter Visit Diagnoses Not on filedocumented in this encounter
--- OUTSIDE RECORDS SUMMARY | 2022-08-19 10:44 | XMS_ITS | Encounter Summary ---
:1960 Author Organization [facility] Address [address], [place] [address] Care Team Providers Name Role Phone Cintia Cobb MD Primary Care Provider [phone] Reason for Visit Reason Comments QUESTIONS, GENERAL Encounter Details Date Type Department Care Team Description 07/14/2022 Telephone Specialty Center [address] Delgado Gottlieb MD QUESTIONS, GENERAL Orthopedics Clinic [address] [place] [address] [place] [address] [phone] Social History Tobacco Use Types Packs/Day Years [...] Noted. Rosetta Ye RN 07/15/2022, 9:33 AM TRONICS PRODUCTION SUPERVISOR Delgado Gottlieb MD - 07/14/2022 11:04 PM [...] to figure out how to get to [facility] to get groceries vs [facility] as [...] Yes Nory Padilla Mai 07/14/2022, 10:06 AM TRONICS PRODUCTION SUPERVISOR documented in this encounter Plan of Treatment Upcoming Encounters Date Type Specialty Care Team Description 09/15/2022 Appointment Orthopedics Delgado Gottlieb MD [address] [place], [place] [address] (Wo rk) 10/08/2022 Appointment Orthopedics Delgado Gottlieb MD [address] [place], [place] [address] (Wo rk) 05/27/2023 Appointment Chemo Therapy/Infusion Services documented as of this encounter Visit Diagnoses Not on filedocumented in this encounter Care Teams Service Mechanic Relationship Specialty Start Date End Date Cintia Cobb MD PCP - General Family Practice 09/30/21 documented as of this encounter
--- OUTSIDE RECORDS SUMMARY | 2022-08-19 10:45 | XMS_ITS | Encounter Summary ---
:1960 Author [facility] Address [address] [place] [address] Care Team Providers Name Role Phone Cintia Cobb MD Primary Care Provider [phone] Reason for Visit Reason Comments PAIN, NOS Encounter Details Date Type Department Care Team Description 06/23/2022 Telephone Specialty Center 435 Delgado Gottlieb MD PAIN, NOS Orthopedics Clinic [address] [place] [address] [place] [address] [phone] Social History Tobacco Use Types Packs/Day Years [...] the weekend. He is had fell in [place]. He was not able to walk or [...] Description 09/15/2022 Appointment Orthopedics Delgado Gottlieb MD [address] [place] [phone] (Gavi presley) 10/08/2022 Appointment Orthopedics Delgado Gottlieb MD [address] [place], [place] [address] (Gavi presley) 05/27/2023 Appointment Chemo Therapy/Infusion Services documented as of this encounter Visit Diagnoses Not on filedocumented in this encounter Care Teams Looseleaf Binder Coverer Relationship Specialty Start Date End Date Cintia Cobb MD PCP - General Family Practice 09/30/21 documented as of this encounter
--- OUTSIDE RECORDS SUMMARY | 2022-08-19 10:45 | XMS_ITS | Encounter Summary ---
:1960 Author Organization [facility] Address [address] [address] Care Team Providers Name Role Phone Cintia Cobb MD Primary Care Provider Reason for Referral Procedure/Equipment (Routine) - Incomplete Specialty Diagnoses / Procedures Referred By Contact Refer red To Contact Diagnoses Closed fracture of distal end of left femur with routine healing, unspecified fracture morphology, subsequent encounter Delgado Gottlieb MD Procedures XR Femur Lt [address] [place] [address] Referral ID Status Reason Start Date Expiration Date Visits V isits Requested Authorized [id number] Incomplete 04/02/2022 07/02/2023 1 1 Reason for Visit Reason Comments KNEE PAIN Encounter Details Date Type Department Care Team Description 04/02/2022 Office Visit Specialty Center Delgado Gottlieb, Domenica sed fracture of [address] Orthopedics Clin ic distal end of left [address] [place] [address] [place], [place] healing, unspecified [phone] fracture morphology, subsequent enco unter (Work) [...] 7:40 AM CDT ORTHOPAEDICS DEPARTMENT PHONE NUMBER: [phone] Reason for today's visit: Open reduction internal fixation of left supracondylar distal femur fracture, utilizing both plate and nail fixation. DOS 10/01/2021 Treatment plan: Weight bearing and activities as tolerated If you continue to have pain over the location of the screw tips at the next visit, we may get a CT scan to see what screws are prominent and guide further treatment. [facility]: [phone] Follow up appointments: You will follow up with Dr. Delgado Gottlieb in 6 month(s). X-Rays: You will have left femur X-Rays taken with your next Orthopaedics appointment. Please uhkrwd41 minutes early for your appointment. Reason for next Orthopaedics appointment: Open reduction internal fixation of left supracondylar distal femur fracture, utilizing both plate and nail fixation. DOS 10/01/2021 Please stop at the check out desk to schedule a follow up appointment. Use this grid to write down your next appointment. DATE & TIME PROVIDER LOCATION APPT NOTES ( ) [facility]: [address] [place] [address] ( ) [facility]: [address] [place] [address] ( ) Other: Open reduction internal fixation of left supracondylar distal femur fracture, utilizing both plate and nail fixation. DOS 10/01/2021 ( ) [facility]: [address] [place] [address] ( ) [facility] [address] [place], [place] ( ) Other: If you have any questions about your visit, your symptoms, your medication, your test results or it is not clear what your diagnosis or treatment plan is please contact us at [phone] or send us a secure message via Pushkart. You may receive surveys via mail, e-mail or text regarding your visit and recovery. Your feedback isvery important to us. Please take a moment to complete them. If you would like to speak to someone specifically, you may contact the clinic at [phone] and your call will be directed to someone on our leadership team. Thank you for choosing Delgado Gottlieb MD and [facility] Orthopaedics & Sports Medicine. If you need to schedule an appointment, you may call our office at [phone]. We are open Thursday-Thursday 8 am - [...] cut. He continues use of the cane real time analyst. He is still in physical therapy but this is now more focused on his lower back as he had a surgery on this in January. 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 Delgado Gottlieb MD Seam Checker [facility] Department of Orthopaedic Surgery [facility] documented in this encounter Plan of Treatment Upcoming Encounters Date Type Specialty Care Team Description 09/15/2022 Appointment Orthopedics Delgado Gottlieb MD [address] [place], [place] [address] (Gavi presley) 10/08/2022 Appointment Orthopedics Delgado Gottlieb MD [address] [place], [place] [address] (Gavi presley) 05/27/2023 Appointment [...] EXAM: XR FEMUR LT 2 VIEWS LOCATION: [facility] 435 DATE/TIME: 04/02/2022 7:48 AM INDICATION: Open reduction internal fixa tion of left supracondylar distal femur fracture COMPARISON: 11/27/2021 IMPRESSION: ORIF of a distal left femur fracture. No interval hardware complication. Progressive incomplete healing. Procedure Note Sebas Thompson MD - 04/02/2022Formatti ng of this note might be different from the original. EXAM: XR FEMUR LT 2 VIEWS LOCATION: [facility] 435 DATE/TIME: 04/02/2022 7:48 AM [...] r documented in this encounter Care Teams Double End Tenoner Operator Relationship Specialty Start Date End Date Cintia Cobb MD PCP - General Family Practice 09/30/21 documented as of this encounter
--- OUTSIDE RECORDS SUMMARY | 2022-08-19 10:45 | XMS_ITS | Encounter Summary ---
:1960 Author Organization [facility] Address [address] [place] [address] Care Team Providers Name Role Phone Cintia Cobb MD Primary Care Provider [phone] Encounter Details Date Type Department Care Team Description 06/23/2022 Telephone Specialty Center 435 Delgado Gottlieb MD Orthopedics Clinic [address] [place] [address]. [place] [address] [place] [address] [phone] Social History Tobacco Use Types Packs/Day Years [...] 09/15/2022 Appointment Orthopedics Delgado Gottlieb MD [address] [place] [address] (Gavi presley) 10/08/2022 Appointment Orthopedics Delgado Gottlieb MD [address] [place] [address] (Wo rk) 05/27/2023 Appointment Chemo Therapy/Infusion Services documented as of this encounter Visit Diagnoses Not on filedocumented in this encounter Care Teams Scale Technician Relationship Specialty Start Date End Date Cintia Cobb MD PCP - General Family Practice 09/30/21 documented as of this encounter
--- OUTSIDE RECORDS SUMMARY | 2022-08-19 10:45 | XMS_ITS | Encounter Summary ---
:1960 Author Organization [facility] Address [address], [place] [address] Care Team Providers Name Role Phone Cintia [...] Knee Lt WO IV Cont [address] [place] [address] Referral ID Status Reason Start Date Expiration Date Visits V isits Requested Authorized [id number] Incomplete 06/25/2022 09/24/2023 1 1 Reason for Visit Reason Comments Revisit Encounter Details Date Type Department Care Team Description 06/25/2022 Office Visit Specialty Center Delgado Gottlieb, Domenica sed nondisplaced fracture of left tibial plateau, initial encounter (Primary Dx); [facility] Closed fracture of distal end of left fe mur with routine healing, unspecified fracture morphology, [facility] [address] [place] [address] [place], [place] [phone] Social History Tobacco Use Types Packs/Day Years [...] encounter Patient Instructions Patient InstructionsSidaryl Zenaida Fields, GSA COORDINATOR - 06/25/2022 11:00 AM CDT ORTHOPAEDICS DEPARTMENT PHONE NUMBER: [phone] Reason for today's visit: Follow up- ORIF [...] NOTES ( ) [facility]: [address] [place] [address] ( ) [facility]: [address] [place], [place] ( ) Other: Follow up- ORIF Left supracondylar distal femur fracture, utilizing both plate and nail fixation DOS: 10/01/2021 ( ) [facility]: [address] [place] [address] ( ) [facility] [address] [place], [place] ( ) Other: If you have any questions about your visit, your symptoms, your medication, your test results or it is not clear what your diagnosis or treatment plan is please contact us at [phone] or send us a secure message via Invoice2go. You may receive surveys via mail, e-mail or text regarding your visit and recovery. Your feedback isvery important to us. Please take a moment to complete them. If you would like to speak to someone specifically, you may contact the clinic at [phone] and your call will be directed to someone on our leadership team. Thank you for choosing [facility]. If you need to schedule an appointment, you may call our office at [phone]. We are open Thursday-Thursday 8 am - [...] to work as soon as able. 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 His left leg is important for driving, [...] agreement with this plan. Delgado Gottlieb MD [facility] Department of Orthopaedic Surgery [facility] documented in this encounter Plan of Treatment Upcoming Encounters Date Type Specialty Care Team Description 09/15/2022 Appointment Orthopedics Delgado Gottlieb MD [address] [place] [address] (Gavi rk) 10/08/2022 Appointment Orthopedics Delgado Gottlieb MD [address] [place] [address] (Gavi presley) 05/27/2023 Appointment Chemo [...] LT WO IV CONT LOCATION: Specialty Center [facility] DATE/TIME: 06/25/2022 11:21 AM INDICATION: Tibial [...] fract ure. Hardware partially seen on the fringe maker images in the distal femur from lateral [...] fracture. Hardware parti ally seen on the fringe maker images in the distal femur from lateral [...] r documented in this encounter Care Teams Hotel Service Supervisor Relationship Specialty Start Date End Date Cintia Cobb MD PCP - General Family Practice 09/30/21 documented as of this encounter
--- OUTSIDE RECORDS SUMMARY | 2022-08-19 10:45 | XMS_ITS | Encounter Summary ---
:1960 Author Organization [facility] Address [address] [place] [address] Care Team Providers Name Role Phone Cintia Cbob MD Primary Care Provider [phone] Reason for Visit Reason Comments Infusion Infusion [...] cified site, initial encounter for fracture [address] [facility] [address] [place] Procedures ZOLEDRONIC [place] 1[place] [address] [place] [address] Phone: Fax: Referral ID Status Reason Start Date Expiration Date Visits V isits Requested Authorized [id number] Authorized 01/08/2022 01/20/2023 999 999 Encounter Details Date Type Department Care Team Description 05/27/2022 Hospital Encounter [facility] Domenica Mcallister fracture of Center JACQUELIN Mendez distal end of left [address] [place] [address] [facility] routine [address] healing, [place], [place] unspecif ied [address] fracture [phone] morphology, (Work) subsequent encounter (Primary Dx) Social [...] 1 10/28/2016 300 MG tablet B-D 3CC LUER-AREIS SYR USE DIRECTED FOR 12 2017 25GX5/8 [...] 09/15/2022 Appointment Orthopedics Delgado Gottlieb MD [address] [place], [place] [address] (Gavi presley) 10/08/2022 Appointment Orthopedics Delgado Gottlieb MD [address] [place], [place] [address] (Gavi presley) 05/27/2023 Appointment [...] glove documented in this encounter Care Teams New Home Sales Consultant Relationship Specialty Start Date End Date Cintia Cobb MD PCP - General Family Practice 09/30/21 documented as of this encounter
--- OUTSIDE RECORDS SUMMARY | 2022-08-19 10:45 | XMS_ITS | Encounter Summary ---
:1960 Author Organization [email or web address] Address [address] [place] [address] Care Team Providers Name Role Phone Cintia Cobb MD Primary Care Provider [phone] Encounter Details Date Type Department Care Team Description 06/16/2022 Notes/Orders [facility] Cesar Champagne, [address] [place], [place] [address] [address] [address] [place] [address] (Gavi rk) Social History Tobacco [...] Description 09/15/2022 Appointment Orthopedics Delgado Gottlieb MD [address] [place] [address] (Gavi rk) 10/08/2022 Appointment Orthopedics Delgado Gottlieb MD [address] [place] [address] (Wo rk) 05/27/2023 Appointment Chemo Therapy/Infusion Services documented as of this encounter Visit Diagnoses Not on filedocumented in this encounter Care Teams Sheet Metal Mechanic Relationship Specialty Start Date End Date Cintia Cobb MD PCP - General Family Practice 09/30/21 documented as of this encounter
--- OUTSIDE RECORDS SUMMARY | 2022-08-19 10:45 | XMS_ITS | Encounter Summary ---
:1960 Author [facility] Address [address] [place] [address] Care Team Providers Name Role Phone Cintia Cobb MD Primary Care Provider [phone] Reason for Visit Procedure/Equipment (Routine) - Incomplete Specialty Diagnoses / Procedures Referred By Contact Refer red To Contact Diagnoses Closed nondisplaced fracture of left tibial plateau, initial encounter Closed fracture of distal end of left femur with routine healing, unspecified fracture morphology, subsequent encounter Delgado Gottlieb MD Procedures CT Knee Lt WO IV Cont [address] [place] [address] Referral ID Status Reason Start Date Expiration Date Visits V isits Requested Authorized [id number] Incomplete 06/25/2022 09/24/2023 1 1 Encounter Details Date Type Department Care Team Description 06/25/2022 [facility] Acute pain of left knee; Procedure Specialty Center Donnell Murray MD Closed fracture of distal end of left fe mur with routine healing, unspecified fracture morphology, subsequent encounter Radiology [address] [place] [address] [place], [place] [phone] [address] Social History Tobacco Use Types Packs/Day Years [...] 09/15/2022 Appointment Orthopedics Delgado Gottlieb MD [address] [place], [place] [address] (Wo rk) 10/08/2022 Appointment Orthopedics Delgado Gottlieb MD [address] [place], [place] [address] (Wo rk) 05/27/2023 Appointment [...] fract ure. Hardware partially seen on the bladder cleaner images in the distal femur from lateral [...] fracture. Hardware parti ally seen on the bladder cleaner images in the distal femur from lateral [...] documented in this encounter Care Teams Manager Port Relationship Specialty Start Date End Date Cintia Cobb MD PCP - General Family Practice 09/30/21 documented as of this encounter
--- OUTSIDE RECORDS SUMMARY | 2022-08-19 10:45 | XMS_ITS | Encounter Summary ---
:1960 Author [facility] Address [address] [address] Care Team Providers Name Role Phone Cintia Cobb MD Primary Care Provider [phone] Reason for Visit Reason Comments QUESTIONS, GENERAL Infusion Appointment Encounter Details Date Type Department Care Team Description 04/30/2022 Telephone [facility] Delmer Valladares, [facility] PAJenifer (Infusion Appointment) [address] [facility] [address] [place] [address] [place] [address] [place], [place] [phone] (Wo rk) Social History Tobacco Use Types [...] - 05/01/2022 1:09 PM CDT Referral to [facility] for Reclast infusion in chart. Left message for patient via that he can call [facility] clinic to get scheduled. [phone]. Amanda Damon - 04/30/2022 3:51 PM CDT Has the patient recently had surgery or an injury? No Patient is calling back regarding his referral to the infusion center. He has never been contacted to schedule the appointment and would like to make sure the referral went through. He would prefer to be seen in the [facility] but [facility]. Patient [...] Description 09/15/2022 Appointment Orthopedics Delgado Gottlieb MD [address] [place] [address] (Gavi presley) 10/08/2022 Appointment Orthopedics Delgado Gottlieb MD [address] [place] [address] (Gavi presley) 05/27/2023 Appointment Chemo Therapy/Infusion Services documented as of this encounter Visit Diagnoses Not on filedocumented in this encounter Care Teams Atmospheric Technician Relationship Specialty Start Date End Date Cintia Cobb MD PCP - General Family Practice 09/30/21 documented as of this encounter
--- OUTSIDE RECORDS SUMMARY | 2022-08-19 10:45 | XMS_ITS | Encounter Summary ---
:1960 Author [facility] Address [address], [place] [address] Care Team Providers Name Role Phone Cintia Cobb MD Primary Care Provider Reason for Visit Reason Comments Refill Encounter Details Date Type Department Care Team Description 05/10/2022 Refill [facility] Ita Alvarez PA-C Refill [address] [place], [place] [address] [place] [address] [phone] (Wo rk) Social History Tobacco Use Types [...] 09/15/2022 Appointment Orthopedics Delgado Gottlieb MD [address] [place], [place] [address] (Wo rk) 10/08/2022 Appointment Orthopedics Delgado Gottlieb MD [address] [place] [address] (Wo rk) 05/27/2023 Appointment Chemo Therapy/Infusion Services documented as of this encounter Visit Diagnoses Not on filedocumented in this encounter Care Teams [place] Boatman Relationship Specialty Start Date End Date Cintia Cobb MD PCP - General Family Practice 09/30/21 documented as of this encounter
--- OUTSIDE RECORDS SUMMARY | 2022-08-19 10:45 | XMS_ITS | Encounter Summary ---
:1960 [facility] Address [address] [place] [address] Care Team Providers Name Role Phone Cintia Cobb MD Primary Care Provider [phone] Reason for Visit Reason Comments QUESTIONS, GENERAL Encounter Details Date Type Department Care Team Description 06/16/2022 Telephone Specialty Center [address] Delgado Gottlieb MD QUESTIONS, GENERAL Orthopedics Clinic [address] [place] [address] [place] [address] [phone] Social History Tobacco Use Types Packs/Day Years [...] Thursday. Called and spoke with Xiao at [facility] and requested images be pushed to PACS. Patient called and notified of the information from Dr Gottlieb. He was transferred through to [facility]. Rosetta Ye RN 06/23/2022, 10:05 AM Rosetta Ye RN - 06/23/2022 9:06 AM CDT Patient is calling back stating I think I broke my leg. He states that he fell Thursday morning at7:30. He states he felt and heard something snap. He states he landed on his knee cap. He states he was brought by ambulance to [place] and they did imaging, but did not [...] Ye RN - 06/19/2022 3:07 PM CDT [facility] at [phone] and follow the prompt for [facility] and [...] Ye RN 06/17/2022, 9:11 AM TR at [phone] and follow the prompt for [facility] and ask to speak with one of the nurses. Rosetta Ye RN 06/17/2022, 9:19 AM Rosetta Lee RN - 06/17/2022 8:26 AM CDT [facility] at [phone] and follow the prompt for [facility] and [...] 09/15/2022 Appointment Orthopedics Delgado Gottlieb MD [address] [place] [phone] (Wo rk) 10/08/2022 Appointment Orthopedics Delgado Gottlieb MD [address] [place] [phone] (Wo rk) 05/27/2023 Appointment Chemo Therapy/Infusion Services documented as of this encounter Visit Diagnoses Not on filedocumented in this encounter Care Teams Simplex Operator Relationship Specialty Start Date End Date Cintia Cobb MD PCP - General Family Practice 09/30/21 documented as of this encounter
--- OUTSIDE RECORDS SUMMARY | 2022-08-19 10:45 | XMS_ITS | Encounter Summary ---
:1960 Author Organization [employer] Address [address] [address] Care Team Providers Name Role Phone Cintia Cobb MD Primary Care Provider [phone] Reason for Visit Reason Comments QUESTIONS, GENERAL Encounter Details Date Type Department Care Team Description 06/17/2022 Telephone [facility] Cesar Champagne, QUESTIONS, GENERAL [address] [place], [place] [address] [address] [address] [place] [phone] (Wo rk) Social History Tobacco Use [...] Description 09/15/2022 Appointment Orthopedics Delgado Gottlieb MD [address] [place] [phone] (Gavi presley) 10/08/2022 Appointment Orthopedics Delgado Gottlieb MD [address] [place], [place] [address] (Gavi presley) 05/27/2023 Appointment Chemo Therapy/Infusion Services documented as of this encounter Visit Diagnoses Not on filedocumented in this encounter Care Teams Classroom Instructional Aide Relationship Specialty Start Date End Date Cintia Cobb MD PCP - General Family Practice 09/30/21 documented as of this encounter
--- OUTSIDE RECORDS SUMMARY | 2022-08-19 10:45 | XMS_ITS | Encounter Summary ---
:1960 Author Organization [facility] Address [address] [place] [address] Care Team Providers Name Role Phone Cintia Cobb MD Primary Care Provider [phone] Reason for Visit Procedure/Equipment (Routine) - Incomplete Specialty Diagnoses / Procedures Referred By Contact Refer red To Contact Diagnoses Closed fracture of distal end of left femur with routine healing, unspecified fracture morphology, subsequent encounter Delgado Gottlieb MD Procedures XR Femur Lt [address] [place] [address] Referral ID Status Reason Start Date Expiration Date Visits V isits Requested Authorized [id number] Incomplete 04/02/2022 07/02/2023 1 1 Encounter Details Date Type Department Care Team Description 04/02/2022 [facility]illary [facility] Closed frac ture of Procedure Specialty Center Donnell Murray MD distal end of left Radiology [address] femur with routine [address] healing, [place] [address] [place], [place] unspecified [phone] fracture [phone] morphology, (Work) subsequent [phone] encounter (Fax) Social History Tobacco Use Types [...] 09/15/2022 Appointment Orthopedics Delgado Gottlieb MD [address] [place], [place] [phone] (Wo rk) 10/08/2022 Appointment Orthopedics Delgado Gottlieb MD [address] [place], [place] [address] (Wo rk) 05/27/2023 Appointment [...] EXAM: XR FEMUR LT 2 VIEWS LOCATION: [facility] 435 DATE/TIME: 04/02/2022 7:48 AM INDICATION: Open reduction internal fixa tion of left supracondylar distal femur fracture COMPARISON: 11/27/2021 IMPRESSION: ORIF of a distal left femur fracture. No interval hardware complication. Progressive incomplete healing. Procedure Note Sebas Thompson MD - 04/02/2022Formatti ng of this note might be different from the original. EXAM: XR FEMUR LT 2 VIEWS LOCATION: [facility] 435 DATE/TIME: 04/02/2022 7:48 AM INDICATION: Open [...] r documented in this encounter Care Teams Factory Maintenance Technician Relationship Specialty Start Date End Date Cintia Cobb MD PCP - General Family Practice 09/30/21 documented as of this encounter
--- OUTSIDE RECORDS SUMMARY | 2022-08-19 10:45 | XMS_ITS | Encounter Summary ---
:1960 Author Organization [facility] Address [address] [place] [address] Care Team Providers Name Role Phone Cintia Cobb MD Primary Care Provider [phone] Reason for Visit Reason Comments Medication Questions Encounter Details Date Type Department Care Team Description 06/13/2022 Refill [facility] Cesar Champagne, Medication Questions [address] [place], [place] [address] [address] [phone] [place] [phone] (Wo rk) Social History Tobacco Use [...] 09/15/2022 Appointment Orthopedics Delgado Gottlieb MD [address] [place], [place] [address] (Gavi rk) 10/08/2022 Appointment Orthopedics Delgado Gottlieb MD [address] [place], [place] [address] (Gavi presley) 05/27/2023 Appointment Chemo Therapy/Infusion Services documented as of this encounter Visit Diagnoses Not on filedocumented in this encounter Care Teams Net Developer With Wcf Relationship Specialty Start Date End Date Cintia Cobb MD PCP - General Family Practice 09/30/21 documented as of this encounter
--- OUTSIDE RECORDS SUMMARY | 2022-08-19 10:45 | XMS_ITS | Encounter Summary ---
:1960 Author Organization [employer] Address [address] [place] [address] Care Team Providers Name Role Phone Cintia Cobb MD Primary Care Provider [phone] Reason for Visit Reason Comments Nurse Return Call Request Low back pain Encounter Details Date Type Department Care Team Description 05/19/2022 Telephone [facility] Cesar Champagne Nurse Return Call [address] [facility] MD Terri Request (Low back pain) [place], [place] [address] [address] [facility] [phone] [address] [place] [address] Social History Tobacco Use Types [...] that normal? Please call the pt at [phone] and if no answer keep trying as he will be in and out of his truck. When did the issue start: over the weekend Have you been seen for this recently?: 03/14/22 Didier Delgado [Mercantile Agent/Appt Center: If yes, please include date and provider.] Is it okay to leave detailed message on your voicemail? No keep trying [Mercantile Agent/Appt Center: If this call is after 3 p.m., communicate to patient: If we are not able to get back to you by the end of the day and your symptoms worsen please contact the Careline] documented in this encounter Plan of Treatment Upcoming Encounters Date Type Specialty Care Team Description 09/15/2022 Appointment Orthopedics Delgado Gottlieb MD [address] [place], [place] [address] (Gavi presley) 10/08/2022 Appointment Orthopedics Delgado Gottlieb MD [address] [place], [place] [address] (Gavi presley) 05/27/2023 Appointment Chemo Therapy/Infusion Services documented as of this encounter Visit Diagnoses Not on filedocumented in this encounter Care Teams Security Rep Relationship Specialty Start Date End Date Cintia Cobb MD PCP - General Family Practice 09/30/21 documented as of this encounter
--- OUTSIDE RECORDS SUMMARY | 2022-08-19 10:46 | XMS_ITS | Encounter Summary ---
:1960 Author Organization [employer] Address [address] [place] [address] Care Team Providers Name Role Phone Cintia Cobb MD Primary Care Provider [phone] Encounter Details Date Type Department Care Team Description 02/16/2022 Notes/Orders [facility] Cesar Champagne, [address] [place], [place] [address] [address] [address] [place] [address] (Gavi rk) Social History Tobacco [...] Description 09/15/2022 Appointment Orthopedics Delgado Gottlieb MD [address] [place] [phone] (Gavi rk) 10/08/2022 Appointment Orthopedics Delgado Gottlieb MD [address] [place] [phone] (Wo rk) 05/27/2023 Appointment Chemo Therapy/Infusion Services documented as of this encounter Visit Diagnoses Not on filedocumented in this encounter Care Teams Storage Brine Worker Relationship Specialty Start Date End Date Cintia Cobb MD PCP - General Family Practice 09/30/21 documented as of this encounter
--- OUTSIDE RECORDS SUMMARY | 2022-08-19 10:46 | XMS_ITS | Encounter Summary ---
:1960 Author Organization [employer] Address [address] [place] [address] Care Team Providers Name Role Phone Cintia Cobb MD Primary Care Provider [phone] Reason for Visit Auth/Cert Specialty Diagnoses / Procedures Referred By Contact Refer red To Contact Diagnoses Lumbar stenosis with neurogenic claudication Procedures Bilateral Lumbar 2-Lumbar 4 Decompression Foraminotomy Referral ID Status Reason Start Date Expiration Date Visits Requ ested Visits Authorized [id number] 1 1 Encounter Details Date Type Department Care Team Description 01/27/2022 Hospital Encounter [facility] Operating Louis Scherer inal stenosis of Room Everardo Murray MD lumbar region with [address] neurogenic [place], [place] [address] claudication (Primary [address] [place], [place]) [phone] [place] [phone] Social History Tobacco Use Types Packs/Day Years [...] told patient that she would page the dehydration unit operator MD. Patient refused because he wanted to [...] Delgado PA-C - 01/27/2022 2:04 PM CDT [facility] Brief Operative Progress Note Surgery [...] planned. See operative note. Didier Delgado PA-C [phone] Everardo Scherer MD - 01/27/2022 12:00 AM CDT NAME: NOEMÍ LUNA [facility]: [id number] OPERATIVE REPORT DATE OF SURGERY: 01/27/2022 : 1960 SURGEON: EVERARDO SCHERER MD FARM TRACTOR MECHANIC: Freddy Delgado PA-C. PREOPERATIVE DIAGNOSIS: Bilateral spinal [...] with 2 and 3 mm Kerrisons. My administrative library assistant protected the neural elements through the decompression. Subarticular decompression was obtained with decompression ofthe transversing lumbar 3 and 4 nerve roots. Finally formal foraminal decompression was carried out with my administrative library assistant protecting the exiting L2 and 3 [...] this surgical procedure. EVERARDO SCHERER MD JNIKHIL/AQS /[id number] documented in this encounter Miscellaneous Notes OR Nursing - Lesli Ng RN - 01/24/2022 3:42 PM CDT Pre-Procedure Assessment, PPA. Patient reports pre-procedure Covid-19 test done in [place] at [facility] on Thursday, January 24. Results will be available in Care Everywhere. Last HGB 7.6 on 12/31/21; Paged to notify HGB result, dx chronic anemia. Anesthesiologist notified of upcoming procedure and HGB 7.6 with recent hx requiring blood transfusion after emergency surgery [facility] No orders received. History and Physical also noted an open wound to right lower extremity being treated at a wound clinic in [place]; page to Dr. Scherer included FYI regarding wound. When patient received NPO instructions, he stated, Well I've had other surgeries when I have eaten breakfast and didn't have any problems. Seat Pack Inspector attempted to explain [facility] NPO policy is in place for his health and safety; Dr. Scherer's office notified. documented in this encounter Plan of Treatment Upcoming Encounters Date Type Specialty Care Team Description 09/15/2022 Appointment Orthopedics Delgado Gottlieb MD [address] [place], [place] [address] (Gavi presley) 10/08/2022 Appointment Orthopedics Delgado Gottlieb MD [address] [place] [phone] (Gavi presley) 05/27/2023 Appointment Chemo [...] (01/27/2022 2:25 PM CDT) Analysis Performed At [facility] Time Signature Glucose, Whole 110 70 - 180 01/27/2022 [facility] Blood mg/dL 2:26 PM CDT LABORATORY Performing MT PACU 01/27/2022 [facility] Location 2:26 PM CDT LABORATORY Specimen Anatomical Collection Method Collection Time Receive d Time (Source) Location / / Volume Laterality Blood 01/27/2022 2:25 PM 2 2:26 CDT PM CDT Everardo Scherer MD LAB_1 Performing Organization Address [facility] Code Phon e Number [facility] [address] [place] [address] Antibody Screen (01/27/2022 11:46 AM CDT) Patholo gist Method Time Signature Antibody Screen Negative 01/27/2022 [facility] Interpretation 12:50 PM CDT BLOOD BANK Specimen Anatomical Collection Method / Collection Time Recei shahid Time (Source) Location / Volume Laterality Blood Venipuncture / 01/27/2022 11:46 2 Unknown AM CDT 11:51 AM CDT Efra Javier MD LAB_1 Performing Organization Address [facility] Phon e Number [facility] BLOOD BANK [address] [place] [address] Blood Type (01/27/2022 11:46 AM CDT) P athologist Signature ABO A 01/27/2022 [facility] 12:35 PM CDT BLOOD BANK RH Positive 01/27/2022 [facility] 12:35 PM CDT BLOOD BANK Specimen Anatomical Collection Method / Collection Time Recei shahid Time (Source) Location / Volume Laterality Blood Venipuncture / 01/27/2022 11:46 2 Unknown AM CDT 11:51 AM CDT Efra Javier MD LAB_1 Performing Organization Address [facility] Phon e Number [facility] [address] [place] [address] Glucose, Whole Blood POCT (01/27/2022 10:53 AM CDT) Analysis Performed At Patho logist Time Signature Glucose, Whole 105 70 - 180 01/27/2022 [facility] Blood mg/dL 10:54 AM CDT LABORATORY Performing MT SURG 01/27/2022 [facility] Location 10:54 AM CDT LABORATORY Specimen Anatomical Collection Method Collection Time Receive d Time (Source) Location / / Volume Laterality Blood 01/27/2022 10:53 01/27/2022 AM CDT 10:54 AM CDT Everardo Scherer MD LAB_1 Performing Organization Address City/State/ZIP Code Phon e Number [facility] [address] [place] [address] documented in this encounter Visit Diagnoses Diagnosis Spinal stenosis of lumbar region with ne urogenic claudication - Primary Spinal stenosis, lumbar region, with kaci rogenic claudication documented in this encounter Administered Medications Inactive Administered Medications - up to 3 most recent administrations Medication Order MAR Action Action Date Dose Rate Site bupivacaine-epinephrine Given 01/27/2022 1:39 PM CDT 8 mL (SENSORCAINE) 0.25% -1:743759 injection ONCE PRN, Starting on Thu01/27/22 at 1339, Until Thu01/27/22 at 2056, Intra-op dextrose 5 % infusion at 250 mL/hr, ONCE PRN, Other, for nausea if all other options have failed and patient is not diabetic., Starting on Thu01/27/22 at 0 823, For 1 dose, PACU/Recovery fentaNYL (SUBLIMAZE) injection 25-50 mcg 25-50 mcg, Intravenous, [id number], Other, Moderate to Severe Pain (pain score [...] (DEMEROL) injection 12.5 mg 12.5 mg, Intravenous, [id number], Shiverin g, Starting on Thu01/27/22 at 0823, [...] pain scores)., Po st-op bupivacaine-epinephrine (SENSORCAINE) 0.25% -1:287577 injection 1339 (Given - Provider: Everardo Scherer MD) ONCE PRN, Starting on Thu01/27/22 at 1339, Until Thu01/27/22 at 2056, Intra-op dextrose 5 % infusion at 250 mL/hr, ONCE PRN, Other, for nause a if all other options have failed and patient is not diabetic., Starting on Thu01/27/22 at 0823, For 1 dose, PACU/Recovery fentaNYL (SUBLIMAZE) injection 25-50 mcg 25-50 mcg, Intravenous, [id number], Other, Moderate to Severe Pain (pain score [...] (DEMEROL) injection 12.5 mg 12.5 mg, Intravenous, [id number], Shiverin g, Starting on Thu01/27/22 at 0823, [...] PACU/Recovery documented in this encounter Care Teams Special Education Bus Driver Relationship Specialty Start Date End Date Cintia Cobb MD PCP - General Family Practice 09/30/21 documented as of this encounter
--- OUTSIDE RECORDS SUMMARY | 2022-08-19 10:46 | XMS_ITS | Encounter Summary ---
:1960 Author Organization [employer] Address [address] [place] [address] Care Team Providers Name Role Phone Cintia Cobb MD Primary Care Provider [phone] Encounter Details Date Type Department Care Team Description 01/01/2022 Notes/Orders [facility] Cesar Champagne, Acute pain [address] [place], [place] [address] [address] [place] [address] [place] [address] (Gavi presley) Social History Tobacco [...] Description 09/15/2022 Appointment Orthopedics Delgado Gottlieb MD [address] [place] [phone] (Gavi rk) 10/08/2022 Appointment Orthopedics Delgado Gottlieb MD [address] [place] [phone] (Wo rk) 05/27/2023 Appointment Chemo Therapy/Infusion Services documented as of this encounter Visit Diagnoses Diagnosis Acute pain documented in this encounter Care Teams Vendor Relationship Manager Relationship Specialty Start Date End Date Cintia Cobb MD PCP - General Family Practice 09/30/21 documented as of this encounter
--- OUTSIDE RECORDS SUMMARY | 2022-08-19 10:46 | XMS_ITS | Encounter Summary ---
:1960 Author Organization [employer] Address [address] [place] [address] Care Team Providers Name Role Phone Cintia Cobb MD Primary Care Provider [phone] Encounter Details Date Type Department Care Team Description 12/30/2021 Notes/Orders [facility] Cesar Champagne, [address] [place], [place] [address] [address] [address] [place] [address] (Gavi rk) Social History Tobacco [...] 09/15/2022 Appointment Orthopedics Delgado Gottlieb MD [address] [place] [phone] (Gavi rk) 10/08/2022 Appointment Orthopedics Delgado Gottlieb MD [address] [place] [phone] (Wo rk) 05/27/2023 Appointment Chemo Therapy/Infusion Services documented as of this encounter Visit Diagnoses Not on filedocumented in this encounter Care Teams Animal Assistant Relationship Specialty Start Date End Date Cintia Cobb MD PCP - General Family Practice 09/30/21 documented as of this encounter
--- OUTSIDE RECORDS SUMMARY | 2022-08-19 10:46 | XMS_ITS | Encounter Summary ---
:1960 Author Organization [employer] Address [address] [place] [address] Care Team Providers Name Role Phone Cintia Cobb MD Primary Care Provider [phone] Encounter Details Date Type Department Care Team Description 01/27/2022 Notes/Orders [facility] Cesar Champagne, [address] [place], [place] [address] [address] [address] [place] [address] (Gavi rk) Social History Tobacco [...] 09/15/2022 Appointment Orthopedics Delgado Gottlieb MD [address] [place] [phone] (Gavi rk) 10/08/2022 Appointment Orthopedics eDlgado Gottlieb MD [address] [place] [phone] (Wo rk) 05/27/2023 Appointment Chemo Therapy/Infusion Services documented as of this encounter Visit Diagnoses Not on filedocumented in this encounter Care Teams Management Department Chair Relationship Specialty Start Date End Date Cintia Cobb MD PCP - General Family Practice 09/30/21 documented as of this encounter
--- OUTSIDE RECORDS SUMMARY | 2022-08-19 10:46 | XMS_ITS | Encounter Summary ---
:1960 Author Organization [employer] Address [address] [place] [address] Care Team Providers Name Role Phone Cintia Cobb MD Primary Care Provider [phone] Reason for Visit Reason Comments QUESTIONS, GENERAL Encounter Details Date Type Department Care Team Description 12/12/2021 Telephone Specialty Center [address] Delgado Gottlieb MD QUESTIONS, GENERAL Orthopedics Clinic [address] [place] [address] [place] [address] [phone] Social History Tobacco Use Types Packs/Day Years [...] days. He was encouraged to contact his [facility] doctor to be seen as soon as [...] 09/15/2022 Appointment Orthopedics Delgado Gottlieb MD [address] [place] [phone] (Wo rk) 10/08/2022 Appointment Orthopedics Delgado Gottlieb MD [address] [place] [phone] (Wo rk) 05/27/2023 Appointment Chemo Therapy/Infusion Services documented as of this encounter Visit Diagnoses Not on filedocumented in this encounter Care Teams Horseback Excavator Relationship Specialty Start Date End Date Cintia Cobb MD PCP - General Family Practice 09/30/21 documented as of this encounter
--- OUTSIDE RECORDS SUMMARY | 2022-08-19 10:46 | XMS_ITS | Encounter Summary ---
:1960 Author Organization [employer] Address [address] [place] [address] Care Team Providers Name Role Phone Cintia Cobb MD Primary Care Provider [phone] Reason for Visit Reason Comments QUESTIONS, GENERAL Left Leg Encounter Details Date Type Department Care Team Description 03/17/2022 Telephone Specialty Center [address] Delgado Gottlieb, QUESTIONS, GENERAL [facility]opedics [facility]Left Leg) [facility] 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 He states he is also havinga sharp [...] 09/15/2022 Appointment Orthopedics Delgado Gottlieb MD [address] [place], [place] [address] (Gavi presley) 10/08/2022 Appointment Orthopedics Delgado Gottlieb MD [address] [place], [place] [address] (Gavi presley) 05/27/2023 Appointment Chemo Therapy/Infusion Services documented as of this encounter Visit Diagnoses Not on filedocumented in this encounter Care Teams Unix Engineer Relationship Specialty Start Date End Date Cintia Cobb MD PCP - General Family Practice 09/30/21 documented as of this encounter
--- OUTSIDE RECORDS SUMMARY | 2022-08-19 10:46 | XMS_ITS | Encounter Summary ---
:1960 Author Organization [employer] Address [address] [place] [address] Care Team Providers Name Role Phone Cintia Cobb MD Primary Care Provider [phone] Reason for Visit Reason Comments QUESTIONS, GENERAL Encounter Details Date Type Department Care Team Description 12/23/2021 Telephone [facility]NI Cesar Champagne, QUESTIONS, GENERAL [address] [place], [place] [address] [address] [phone] [place] [phone] (Wo rk) Social History Tobacco Use [...] from the nurse. Declined to give to documentation writer to put in the message. Patient does not have voicemail. documented in this encounter Plan of Treatment Upcoming Encounters Date Type Specialty Care Team Description 09/15/2022 Appointment Orthopedics Delgado Gottlieb MD [address] [place], [place] [address] (Gavi rk) 10/08/2022 Appointment Orthopedics Delgado Gottlieb MD [address] [place], [place] [address] (Gavi presley) 05/27/2023 Appointment Chemo Therapy/Infusion Services documented as of this encounter Visit Diagnoses Not on filedocumented in this encounter Care Teams Ditcher Relationship Specialty Start Date End Date Cintia Cobb MD PCP - General Family Practice 09/30/21 documented as of this encounter
--- OUTSIDE RECORDS SUMMARY | 2022-08-19 10:46 | XMS_ITS | Encounter Summary ---
:1960 Author Organization [facility] Address [address] [facility] [place] [address] Care Team Providers Name Role Phone Cintia Cobb MD Primary Care Provider [phone] Reason for Visit Reason Comments IV,THERAPY Prior Authorization For Infusion Medication Reclast J3 489 - add additional DIAG code to TP Order Encounter Details Date Type Department Care Team Description 01/10/2022 Telephone [facility] Delmer Valladares, ONOFRE,THE RAPY; Prior CENTER PA-C Authorization For [address] [facility] Infusion Medication [place], [place] [address] [place], [place] (Reclast J3489 - add [phone] additional DIAG code to [phone] (Wo rk) TP Order) Social History Tobacco [...] one. Thank you, Jelena Owens Specialty Care Conservation Planner [address] Mail Stop: [address] [place] [address] Office: [phone] documented in this encounter Plan of Treatment Upcoming Encounters Date Type Specialty Care Team Description 09/15/2022 Appointment Orthopedics Delgado Gottlieb MD [address] [place], [place] [address] (Gavi presley) 10/08/2022 Appointment Orthopedics Delgado Gottlieb MD [address] [place], [place] [address] (Gavi presley) 05/27/2023 Appointment Chemo Therapy/Infusion Services documented as of this encounter Visit Diagnoses Not on filedocumented in this encounter Care Teams Industrial Cook Relationship Specialty Start Date End Date Cintia Cobb MD PCP - General Family Practice 09/30/21 documented as of this encounter
--- OUTSIDE RECORDS SUMMARY | 2022-08-19 10:46 | XMS_ITS | Encounter Summary ---
:1960 Author Organization [facility] Address [address] [place] [address] Care Team Providers Name Role Phone Cintia Cobb MD Primary Care Provider [phone] Reason for Referral Therapies (Routine) - Closed Specialty Diagnoses / Procedures Referred By Contact Refer red To Contact Diagnoses Status post lumbar spine surgery for decompression of spinal cord Freddy Delgado PA-C [address] [place], [place] [address] Referral ID Status Reason Start Date Expiration Date Visits Requ ested Visits Authorized [id number] Closed 03/14/2022 03/14/2023 1 1 Scheduling Instructions [...] lumbar CENTER EMMA spine surgery for [address] [facility] [address] decompression of [place] [id number] spinal cord (Primary [phone] [place], [place] Dx) [id number] Social History Tobacco Use Types Packs/Day Years [...] 9:04 AM CDT Thank you for Choosing [facility] for your health care visit today. Didier Delgado PA-C Orthopaedic Physician Food Dehydrator Operator You were provided with an order for physical therapy to focus on core stabilization and stretching and strengthening of lower extremities and postural training Medication Requests: Prescriptions are not filled on weekends or on weekdays after 3:00 PM. For all medication refills: Request a refill using [employer] or contact your pharmacy. What is Know Your Cost? Know Your Cost is a service for patients and patient/members to call and receive personalized cost information and estimates across our care group. The phone number is (COST) Thursday - Thursday 8 AM to 5 PM Advanced Imaging Scheduling: To schedule an MRI, Ultrasound, or Image guided injection at [facility] please call [phone]. To schedule an MRI or CT at a [facility] please call [phone]. [facility] Workers' Compensation [address] [place] [address] (Phone) Email: [email or web address] Release of Information: Radiology/Imaging [address] [place], [place] [address] (Phone) Health Information Management [address] [place], [place] [address] (Phone) Z[employer] documented in this encounter Progress Notes Freddy Delgado PA-C - 03/14/2022 12:00 AM CDT NAME: LAZ LUNA CSN: [id number] CLINIC NOTE DATE OF SERVICE: 03/14/2022 : [...] or concerns in the meantime. EMMA MELGOZA/JOSEPH /[id number] documented in this encounter Plan of Treatment Upcoming Encounters Date Type Specialty Care Team Description 09/15/2022 Appointment Orthopedics Delgado Gottlieb MD [address] [place] [phone] (Gavi rk) 10/08/2022 Appointment Orthopedics Delgado Gottlieb MD [address] [place] [phone] (Gavi presley) 05/27/2023 Appointment Chemo Therapy/Infusion Services Scheduled Referrals Name Type Priority Associated Diagnoses Order S chedule Physical Therapy Referral Routine Status post lumbar spine Ordered: 03/14/2022 surgery for decompression of spinal cord documented as of this encounter Visit Diagnoses Diagnosis Status post lumbar spine surgery for dec ompression of spinal cord - Primary documented in this encounter Care Teams Process Area Supervisor Relationship Specialty Start Date End Date Cintia Cobb MD PCP - General Family Practice 09/30/21 documented as of this encounter
--- OUTSIDE RECORDS SUMMARY | 2022-08-19 10:46 | XMS_ITS | Encounter Summary ---
:1960 Author Organization [facility] Address [address], [place] [address] Care Team Providers Name Role Phone Cintia Cobb MD Primary Care Provider Reason for Visit Reason Comments QUESTIONS, GENERAL Encounter Details Date Type Department Care Team Description 01/29/2022 Telephone [facility] Cesar Champagne QUESTIONS, GENERAL (/) [address] [facility] MD [place], [place] [address] [address] [place] [address] [place] [phone] Social History Tobacco Use Types Packs/Day [...] Pt is post Decomp-Foraminotomy L2-4 Bilat/DOS 01/27/22 Confucianism Pt was called and he states he [...] you been seen for this recently?: na [Services Delivery Driver/Appt Center: If yes, please include date and provider.] Is it okay to leave detailed message on your voicemail? YES [Services Delivery Driver/Appt Center: If this call is after 3 p.m., communicate to patient: If we are not able to get back to you by the end of the day and your symptoms worsen please contact the Careline] documented in this encounter Plan of Treatment Upcoming Encounters Date Type Specialty Care Team Description 09/15/2022 Appointment Orthopedics Delgado Gottlieb MD [address] [place] [address] (Gavi presley) 10/08/2022 Appointment Orthopedics Delgado Gottlieb MD [address] [place] [phone] (Gavi rk) 05/27/2023 Appointment Chemo Therapy/Infusion Services documented as of this encounter Visit Diagnoses Not on filedocumented in this encounter Care Teams Multi Site Leasing Consultant Relationship Specialty Start Date End Date Cintia Cobb MD PCP - General Family Practice 09/30/21 documented as of this encounter
--- OUTSIDE RECORDS SUMMARY | 2022-08-19 10:46 | XMS_ITS | Encounter Summary ---
:1960 Author Organization [facility] Address [address], [place] [address] Care Team Providers Name Role Phone Cintia Cobb MD Primary Care Provider [phone] Reason for Visit Auth/Cert Specialty Diagnoses / Procedures Referred By Contact Refer red To Contact Diagnoses Lumbar stenosis with neurogenic claudication Procedures Bilateral Lumbar 2-Lumbar 4 Decompression Foraminotomy Referral ID Status Reason Start Date Expiration Date Visits Requ ested Visits Authorized [id number] 1 1 Encounter Details Date Type Department Care Team Description 01/27/2022 Anesthesia Event Orthodox Operating Katya Javier MD Room [address] [place] [id number] [phone] Anesthesia Record Procedure Summary Procedure Name Responsible [...] Electr onically signed by Abhay Salas APRN, DREDGE WORKER 1404 An Stop Care transferred . Name [...] Salas, HAKEEM, Time: 1217; Placed LUZMA PALACIO DREDGE WORKER By: DREDGE WORKER; Induction Type: Pre-O2, IV; Masking: Easy; ETT [...] MD - 01/27/2022 2:47 PM CDT [facility] Anesthesia Post-op Note Patient: Ed J Luna [...] MD - 01/27/2022 11:07 AM CDT [facility] Anesthesia Pre-op Evaluation Procedure: Bilateral Lumbar 2-Lumbar [...] QT 466 ms QTc 480 ms R [place] -89 degrees T [place] 68 degrees Physical Exam: BP (!) 145/76 [...] benefits and alternatives discussed with: Patient or Elder Assistant agree tothe anesthesia treatment plan. ANESTHESIA PREOP EVALUATION Ed Jim Luna is a 61 y.o. male who presents for Procedure(s): Bilateral Lumbar 2-Lumbar 4 Decompression Foraminotomy Plan is General with an endotracheal tube Pertinent risks, benefits, available alternatives, and the anesthetic plan were discussed with patient, family, and/or patient's automobile rental representative. All questions were answered and an understanding of our conversation was expressed. There was an agreement to proceed. The patient and/or their automobile rental representative were notified about the potential risks of damage to the lips, teeth, dental devices, mouth and airway. H&P Reviewed and Patient examined, no change observed IV access Antibiotics per surgery Electronically signed by: Efra Javier MD 01/27/2022 11:07 AM documented in this encounter Plan of Treatment Upcoming Encounters Date Type Specialty Care Team Description 09/15/2022 Appointment Orthopedics Delgado Gottlieb MD [address] [place] [phone] (Wo rk) 10/08/2022 Appointment Orthopedics Delgado Gottlieb MD [address] [place] [phone] (Wo rk) 05/27/2023 Appointment Chemo [...] 1404 documented in this encounter Care Teams Timing Inspector Relationship Specialty Start Date End Date Cintia Cobb MD PCP - General Family Practice 09/30/21 documented as of this encounter
--- OUTSIDE RECORDS SUMMARY | 2022-08-19 10:46 | XMS_ITS | Encounter Summary ---
:1960 Author Organization [facility] Address [address] [place] [address] Care Team Providers Name Role Phone Cintia Cobb MD Primary Care Provider [phone] Reason for Visit Procedure/Equipment (Routine) - Closed Specialty Diagnoses / Procedures Referred By Contact Refer red To Contact Diagnoses Low bone density Delgado Gottlieb MD Procedures DXA Bone Density Spine/Hip Inc Vert FX Assess Dxa Bone Density Spine/Hip/Forearm [address] [place] [address] Referral ID Status Reason Start Date Expiration Date Visits Requ ested Visits Authorized [id number] Closed 10/16/2021 01/15/2023 1 1 Encounter Details Date Type Department Care Team Description 12/20/2021 Ancillary Procedure [facility] Bone Density Low bone density [address] [place], [place] [address] Social History Tobacco Use Types Packs/Day Years [...] 09/15/2022 Appointment Orthopedics Delgado Gottlieb MD [address] [place], [place] [address] (Gavi presley) 10/08/2022 Appointment Orthopedics Delgado Gottlieb MD [address] [place], [place] [address] (Gavi presley) 05/27/2023 Appointment [...] J Luna Densitometer:Hologic Discovery A (S/N 83 972) [facility] BONE 5 OSTEOPOROSIS RISK FACTORS FROM [...] bone density test (fi rst one at [facility] [place]) VERTEBRAL FRACTURE ASSESSMENT: No vertebral fractures from [...] density documented in this encounter Care Teams Commercial Fisher Relationship Specialty Start Date End Date Cintia Cobb MD PCP - General Family Practice 09/30/21 documented as of this encounter
--- OUTSIDE RECORDS SUMMARY | 2022-08-19 10:46 | XMS_ITS | Encounter Summary ---
:1960 Author Organization [facility] Address [address] [place] [address] Care Team Providers Name Role Phone Cintia Cobb MD Primary Care Provider [phone] Encounter Details Date Type Department Care Team Description 01/27/2022 Orders Only HIM DEPARTMENT Provider, Aguilar hernandez [place] [address] Social History Tobacco Use Types Packs/Day Years [...] 09/15/2022 Appointment Orthopedics Delgado Gottlieb MD [address] [place], [place] [address] (Gavi presley) 10/08/2022 Appointment Orthopedics Delgado Gottlieb MD [address] [facility] [place] [place] [address] (Gavi presley) 05/27/2023 Appointment [...] on filedocumented in this encounter Care Teams Uniform Maker Relationship Specialty Start Date End Date Cintia Cobb MD PCP - General Family Practice 09/30/21 documented as of this encounter
--- OUTSIDE RECORDS SUMMARY | 2022-08-19 10:46 | XMS_ITS | Encounter Summary ---
:1960 Author Organization [facility] Address [address] [place] [address] Care Team Providers Name Role Phone Cintia Cobb MD Primary Care Provider [phone] Reason for Visit Reason Comments APPOINTMENT REQUEST Pt requesting to have his po stop appt first thing in the morning due to work commitment. Encounter Details Date Type Department Care Team Description 02/04/2022 Telephone [facility] Freddy Delgado, APPOI NTMENT REQUEST CENTER [facility]MA (Pt requesting to have [address] his postop appt first [place], [place] [address] [place], [place] thing in the morning [phone] due to work [phone] (Wo rk) commitment. ) Social History Tobacco [...] you been seen for this recently?: n/a [Log Sorting Supervisor/Appt Center: If yes, please include date and provider.] Is it okay to leave detailed message on your voicemail? yes [Log Sorting Supervisor/Appt Center: If this call is after 3 p.m., communicate to patient: If we are not able to get back to you by the end of the day and your symptoms worsen please contact the Careline] documented in this encounter Plan of Treatment Upcoming Encounters Date Type Specialty Care Team Description 09/15/2022 Appointment Orthopedics Delgado Gottlieb MD [address] [place], [place] [address] (Gavi presley) 10/08/2022 Appointment Orthopedics Delgado Gottlieb MD [address] [place] [phone] (Gavi presley) 05/27/2023 Appointment Chemo Therapy/Infusion Services documented as of this encounter Visit Diagnoses Not on filedocumented in this encounter Care Teams Oracle Ascp Consultant Relationship Specialty Start Date End Date Cintia Cobb MD PCP - General Family Practice 1/24/22 documented as of this encounter
--- OUTSIDE RECORDS SUMMARY | 2022-08-19 10:46 | XMS_ITS | Encounter Summary ---
:1960 Author Organization [facility] Address [address], [place] [address] Care Team Providers Name Role Phone Cintia Cobb MD Primary Care Provider [phone] Encounter Details Date Type Department Care Team Description 01/11/2022 Notes/Orders [facility] AmericusDelmer Bey, Age-re lated Orthopaedics & Sports PA-C osteoporosis with Medicine [address] [place] [address] current pathological [address] [facility] [place], [place] fracture, initial [place], [place] [phone] encounter (Primary [phone] Dx) (Work) Social History Tobacco Use Types [...] Description 09/15/2022 Appointment Orthopedics Delgado Gottlieb MD [address] [place] [phone] (Wo rk) 10/08/2022 Appointment Orthopedics Delgado Gottlieb MD [address] [place] [phone] (Wo rk) 05/27/2023 Appointment Chemo Therapy/Infusion Services documented as of this encounter Visit Diagnoses Diagnosis Age-related osteoporosis with current pa thological fracture, initial encounter - Primary documented in this encounter Care Teams Email Campaign Manager Relationship Specialty Start Date End Date Cintia Cobb MD PCP - General Family Practice 09/30/21 documented as of this encounter
--- OUTSIDE RECORDS SUMMARY | 2022-08-19 10:46 | XMS_ITS | Encounter Summary ---
:1960 Author Organization [employer] Address [address] [place] [address] Care Team Providers Name Role Phone Cintia Cobb MD Primary Care Provider [phone] Reason for Visit Auth/Cert Specialty Diagnoses / Procedures Referred By Contact Refer red To Contact Diagnoses Lumbar stenosis with neurogenic claudication Procedures Bilateral Lumbar 2-Lumbar 4 Decompression Foraminotomy Referral ID Status Reason Start Date Expiration Date Visits Requ ested Visits Authorized [id number] 1 1 Encounter Details Date Type Department Care Team Description 01/27/2022 Surgery [facility] Operating Everardo Scherer Lumbar 2-Lumbar Room MD Terri [address] [facility] Foraminotomy [place], [place] [address] [place], [place] [phone] [address] Social History Tobacco Use Types Packs/Day [...] told patient that she would page the hematologist oncologist MD. Patient refused because he wanted to [...] - 01/27/2022 2:[address] [facility] Brief Operative Progress Note Surgery Date: [...] planned. See operative note. Didier Delgado PA-C [phone] Everardo Scherer MD - 01/27/2022 12:00 AM CDT NAME: NOEMÍ LUNA [facility]: [id number] OPERATIVE REPORT DATE OF SURGERY: 01/27/2022 : 1960 SURGEON: EVERARDO SCHERER MD MATE RELIEF: Freddy Delgado PA-C. PREOPERATIVE DIAGNOSIS: Bilateral spinal [...] with 2 and 3 mm Kerrisons. My photographer assistant protected the neural elements through the decompression. Subarticular decompression was obtained with decompression ofthe transversing lumbar 3 and 4 nerve roots. Finally formal foraminal decompression was carried out with my photographer assistant protecting the exiting L2 and 3 [...] this surgical procedure. EVERARDO SCHERER MD JNIKHIL/AQS /[id number] documented in this encounter Miscellaneous Notes OR Nursing - Lesli Ng RN - 01/24/2022 3:42 PM CDT Pre-Procedure Assessment, PPA. Patient reports pre-procedure Covid-19 test done in [place] at [facility] on Thursday, January 24. Results will be available in Care Everywhere. Last HGB 7.6 on 12/31/21; Paged to notify HGB result, dx chronic anemia. Anesthesiologist notified of upcoming procedure and HGB 7.6 with recent hx requiring blood transfusion after emergency surgery [facility] No orders received. History and Physical also noted an open wound to right lower extremity being treated at a wound clinic in [place]; page to Dr. Scherer included FYI regarding wound. When patient received NPO instructions, he stated, Well I've had other surgeries when I have eaten breakfast and didn't have any problems. Chucking And Sawing Machine Operator attempted to explain [facility] is in place for his health and safety; Dr. Scherer's office notified. documented in this encounter Plan of Treatment Upcoming Encounters Date Type Specialty Care Team Description 09/15/2022 Appointment Orthopedics Delgado Gottlieb MD [address] [place], [place] [address] (Gavi presley) 10/08/2022 Appointment Orthopedics Delgado Gottlieb MD [address] [place] [phone] (Gavi presley) 05/27/2023 Appointment Chemo [...] (01/27/2022 2:25 PM CDT) Analysis Performed At [facility] Time Signature Glucose, Whole 110 70 - 180 01/27/2022 [facility] Blood mg/dL 2:26 PM CDT LABORATORY Performing MT PACU 01/27/2022 [facility] Location 2:26 PM CDT LABORATORY Specimen Anatomical Collection Method Collection Time Receive d Time (Source) Location / / Volume Laterality Blood 01/27/2022 2:25 PM 2 2:26 CDT PM CDT Everardo Scherer MD LAB_[address] [facility] Code Phon e Number [facility] [address] [place] [address] Antibody Screen (01/27/2022 11:46 AM CDT) Patholo gist Method Time Signature Antibody Screen Negative 01/27/2022 [facility] Interpretation 12:50 PM CDT BLOOD BANK Specimen Anatomical Collection Method / Collection Time Recei shahid Time (Source) Location / Volume Laterality Blood Venipuncture / 01/27/2022 11:46 2 Unknown AM CDT 11:51 AM CDT Efra Javier MD LAB_[address] [facility] Phon e Number [facility] [address] [place] [address] Blood Type (01/27/2022 11:46 AM CDT) P athologist Signature ABO A 01/27/2022 [facility] 12:35 PM CDT BLOOD BANK RH Positive 01/27/2022 [facility] 12:35 PM CDT BLOOD BANK Specimen Anatomical Collection Method / Collection Time Recei shahid Time (Source) Location / Volume Laterality Blood Venipuncture / 01/27/2022 11:46 2 Unknown AM CDT 11:51 AM CDT Efra Javier MD LAB_[address] [facility] Code Phon e Number [facility] [address] [place] [address] Glucose, Whole Blood POCT (01/27/2022 10:53 AM CDT) Analysis Performed At Patho logist Time Signature Glucose, Whole 105 70 - 180 01/27/2022 [facility] Blood mg/dL 10:54 AM CDT LABORATORY Performing MT SURG 01/27/2022 [facility] Location 10:54 AM CDT LABORATORY Specimen Anatomical Collection Method Collection Time Receive d Time (Source) Location / / Volume Laterality Blood 01/27/2022 10:53 01/27/2022 AM CDT 10:54 AM CDT Everarod Scherer MD LAB_1 Performing Organization Address City/State/ZIP Code Phon e Number [facility] [address] [place] [address] documented in this encounter Visit Diagnoses Diagnosis [...] 1:39 PM CDT 8 mL (SENSORCAINE) 0.25% -1:899554 injection ONCE PRN, Starting on Thu01/27/22 at 1339, Until Thu01/27/22 at 2056, Intra-op dextrose 5 % infusion at 250 mL/hr, ONCE PRN, Other, for nausea if all other options have failed and patient is not diabetic., Starting on Thu01/27/22 at 0 823, For 1 dose, PACU/Recovery fentaNYL (SUBLIMAZE) injection 25-50 mcg 25-50 mcg, Intravenous, [id number], Other, Moderate to Severe Pain (pain score [...] (DEMEROL) injection 12.5 mg 12.5 mg, Intravenous, [id number], Shiverin g, Starting on Thu01/27/22 at 0823, [...] pain scores)., Po st-op bupivacaine-epinephrine (SENSORCAINE) 0.25% -1:661222 injection 1339 (Given - Provider: Everardo Scherer MD) ONCE PRN, Starting on Thu01/27/22 at 1339, Until Thu01/27/22 at 2056, Intra-op dextrose 5 % infusion at 250 mL/hr, ONCE PRN, Other, for nause a if all other options have failed and patient is not diabetic., Starting on Thu01/27/22 at 0823, For 1 dose, PACU/Recovery fentaNYL (SUBLIMAZE) injection 25-50 mcg 25-50 mcg, Intravenous, [id number], Other, Moderate to Severe Pain (pain score [...] (DEMEROL) injection 12.5 mg 12.5 mg, Intravenous, [id number], Shiverin g, Starting on Thu01/27/22 at 0823, [...] PACU/Recovery documented in this encounter Care Teams Import Export Manager Relationship Specialty Start Date End Date Cintia Cobb MD PCP - General Family Practice 09/30/21 documented as of this encounter
--- OUTSIDE RECORDS SUMMARY | 2022-08-19 10:46 | XMS_ITS | Encounter Summary ---
:1960 Author Organization [facility] Address [address], [place] [address] Care Team Providers Name Role Phone Cintia Cobb MD Primary Care Provider [phone] Reason for Referral Procedure/Equipment (Routine) - Incomplete Specialty Diagnoses / Procedures Referred By Contact Refer red To Contact Diagnoses Diagnosis unknown Cesar Scherer MD Procedures FL C Arm [address] [facility] [address] [place], [place] [phone] Referral ID Status Reason Start Date Expiration Date Visits V isits Requested Authorized [id number] Incomplete 01/27/2022 04/28/2023 1 1 Reason for Visit Auth/Cert Specialty Diagnoses / Procedures Referred By Contact Refer red To Contact Diagnoses Lumbar stenosis with neurogenic claudication Procedures Bilateral Lumbar 2-Lumbar 4 Decompression Foraminotomy Referral ID Status Reason Start Date Expiration Date Visits Requ ested Visits Authorized [id number] 1 1 Encounter Details Date Type Department Care Team Description 01/27/2022 Hospital Encounter [facility] Cesar Scherer Diagnosis unknown 0[address] Ramirez Murray MD [place], [place] [address] [address] [place] [address] [place] [address] Social History Tobacco Use Types [...] 09/15/2022 Appointment Orthopedics Delgado Gottlieb MD [address] [place] [phone] (Gavi rk) 10/08/2022 Appointment Orthopedics Delgado Gottlieb MD [address] [place] [address] (Wo rk) 05/27/2023 Appointment Chemo Therapy/Infusion [...] surg ical procedure. Cesar Scherer MD RAD [place] documented in this encounter Visit Diagnoses Diagnosis Diagnosis unknown Other unknown and unspecified cause of m orbidity or mortality documented in this encounter Care Teams Road Test Examiner Relationship Specialty Start Date End Date Cintia Cobb MD PCP - General Family Practice 09/30/21 documented as of this encounter
--- OUTSIDE RECORDS SUMMARY | 2022-08-19 10:46 | XMS_ITS | Encounter Summary ---
:1960 Author Organization [employer] Address [address] [place] [address] Care Team Providers Name Role Phone Cintia Cobb MD Primary Care Provider [phone] Reason for Visit Reason Comments COVID Screening Pre op screening Encounter Details Date Type Department Care Team Description 01/17/2022 Telephone [facility] Cesar Champagne COVID Screening (Pre op [address] [facility] MD Terri screening) [place], [place] [address] [address] [facility] [phone] [place] [address] Social History Tobacco Use Types Packs/Day [...] Lesli Motley - 01/20/2022 9:29 AM CDT [facility] never reached back with a fax and [...] covid test order to be send to [facility] so he can get his [...] allow his covid test to happen. Called [facility] and spoke with the wound clinic where he wasjust seen and she directed me to the lab research kennel supervisor at [phone] to see if they want the order directly. I left the lab research kennel supervisor a detailed message regarding the situation and needing a correct fax #. Spine nurse, can you please sign the pended covid test orders. When I get a call back from [facility] I can fax it. documented in this encounter Plan of Treatment Upcoming Encounters Date Type Specialty Care Team Description 09/15/2022 Appointment Orthopedics Delgado Gottlieb MD [address] [place], [place] [address] (Gavi presley) 10/08/2022 Appointment Orthopedics Delgado Gottlieb MD [address] [place], [place] [address] (Gavi presley) 05/27/2023 Appointment Chemo Therapy/Infusion Services documented as of this encounter Visit Diagnoses Diagnosis Screening examination for infectious dis ease - Primary Screening examination for unspecified in fectious disease documented in this encounter Care Teams Sports Management Intern Relationship Specialty Start Date End Date Cintia Cobb MD PCP - General Family Practice 09/30/21 documented as of this encounter
--- OUTSIDE RECORDS SUMMARY | 2022-08-19 10:46 | XMS_ITS | Encounter Summary ---
:1960 Author Organization [employer] Address [address] [place] [address] Care Team Providers Name Role Phone Cintia Cobb MD Primary Care Provider Reason for Visit Reason Comments QUESTIONS, GENERAL Encounter Details Date Type Department Care Team Description 01/28/2022 Telephone [facility] Cesra Champagne, QUESTIONS, GENERAL [address] [place], [place] [address] [address] [phone] [place] [address] (Wo rk) Social History Tobacco Use [...] and will work with Jackie at [facility] to assist in getting him his off [...] PM CDT ED had surgery yesterday at [facility]. He states he did not receive any information regarding his surgery, no paperwork, questions were not answered by staff. He is not happy and asked to speak to Lesli. documented in this encounter Plan of Treatment Upcoming Encounters Date Type Specialty Care Team Description 09/15/2022 Appointment Orthopedics Delgado Gottlieb MD [address] [place] [phone] (Gavi presley) 10/08/2022 Appointment Orthopedics Delgado Gottlieb MD [address] [place], [place] [address] (Gavi presley) 05/27/2023 Appointment Chemo Therapy/Infusion Services documented as of this encounter Visit Diagnoses Not on filedocumented in this encounter Care Teams Raise Drill Operator Relationship Specialty Start Date End Date Cintia Cobb MD PCP - General Family Practice 09/30/21 documented as of this encounter
--- OUTSIDE RECORDS SUMMARY | 2022-08-19 10:46 | XMS_ITS | Encounter Summary ---
:1960 Author Organization [facility] Address [address], [place] [address] Care Team Providers Name Role Phone Cintia Cobb MD Primary Care Provider [phone] Reason for Visit Reason Comments Refill Encounter Details Date Type Department Care Team Description 03/01/2022 Refill [facility] Ita Alvarez PA-C Refill [address] [facility] [address] [facility] [place], [place] [address] [place] [address] [phone] (Wo rk) Social History Tobacco Use Types [...] Description 09/15/2022 Appointment Orthopedics Delgado Gottlieb MD [address] [place] [phone] (Wo rk) 10/08/2022 Appointment Orthopedics Delgado Gottlieb MD [address] [place] [phone] (Gavi presley) 05/27/2023 Appointment Chemo Therapy/Infusion Services documented as of this encounter Visit Diagnoses Not on filedocumented in this encounter Care Teams Exhibition Specialist Relationship Specialty Start Date End Date Cintia Cobb MD PCP - General Family Practice 09/30/21 documented as of this encounter
--- OUTSIDE RECORDS SUMMARY | 2022-08-19 10:46 | XMS_ITS | Encounter Summary ---
:1960 Author Organization [facility] Address [address], [place] [address] Care Team Providers Name Role Phone Cintia Cobb MD Primary Care Provider [phone] Reason for Visit Reason Comments Medication Questions Reclast Encounter Details Date Type Department Care Team Description 03/26/2022 Telephone [facility] Delmer Valladares, Medica tion Questions CENTER [facility] (Reclast) [address] [facility] [address] [place] [address] [place] [address] [place], [place] [phone] (Wo rk) Social History Tobacco Use Types [...] she is rerouting referral to [facility] Petra Cervantes - 03/26/2022 3:54 [...] message with his . Please use - [phone] as the best number to reach the patient. Let me know if I need to send this somewhere else. Thanks! documented in this encounter Plan of Treatment Upcoming Encounters Date Type Specialty Care Team Description 09/15/2022 Appointment Orthopedics Delgado Gottlieb MD [address] [place], [place] [address] (Wo rk) 10/08/2022 Appointment Orthopedics Delgado Gottlieb MD [address] [place] [address] (Wo rk) 05/27/2023 Appointment Chemo Therapy/Infusion Services documented as of this encounter Visit Diagnoses Not on filedocumented in this encounter Care Teams Architectural Draftsperson Relationship Specialty Start Date End Date Cintia Cobb MD PCP - General Family Practice 09/30/21 documented as of this encounter
--- OUTSIDE RECORDS SUMMARY | 2022-08-19 10:46 | XMS_ITS | Encounter Summary ---
:1960 Author Organization [facility] Address [address] [place] [address] Care Team Providers Name Role Phone Cintia Cobb MD Primary Care Provider Encounter Details Date Type Department Care Team Description 01/27/2022 Orders Only HIM DEPARTMENT Provider, Aguilar hernandez [place] [id number] Social History Tobacco Use Types Packs/Day Years [...] 09/15/2022 Appointment Orthopedics Delgado Gottlieb MD [address] [place], [place] [address] (Gavi presley) 10/08/2022 Appointment Orthopedics Delgado Gottlieb MD [address] [facility] [place] [place] [address] (Gavi presley) 05/27/2023 Appointment [...] on filedocumented in this encounter Care Teams Box Sealing Machine Feeder Relationship Specialty Start Date End Date Cintia Cobb MD PCP - General Family Practice 09/30/21 documented as of this encounter
--- OUTSIDE RECORDS SUMMARY | 2022-08-19 10:46 | XMS_ITS | Encounter Summary ---
:1960 Author Organization [facility] Address [address] [place] [address] Care Team Providers Name Role Phone Cintia Cobb MD Primary Care Provider [phone] Reason for Visit Reason Comments QUESTIONS, GENERAL Encounter Details Date Type Department Care Team Description 01/03/2022 Telephone [facility] Cesar Champagne, QUESTIONS, GENERAL [address] [place], [place] [address] [address] [phone] [place] [address] (Wo rk) Social History Tobacco Use [...] leave detailed message on your voicemail? No [Medical Technologist Clinical/Appt Center: If this call is after 3 p.m., communicate to patient: If we are not able to get back to you by the end of the day and your symptoms worsen please contact the Careline] documented in this encounter Plan of Treatment Upcoming Encounters Date Type Specialty Care Team Description 09/15/2022 Appointment Orthopedics Delgado Gottlieb MD [address] [place], [place] [address] (Gavi presley) 10/08/2022 Appointment Orthopedics Delgado Gottlieb MD [address] [place], [place] [address] (Gavi presley) 05/27/2023 Appointment Chemo Therapy/Infusion Services documented as of this encounter Visit Diagnoses Not on filedocumented in this encounter Care Teams Cook Fast Food Relationship Specialty Start Date End Date Cintia Cobb MD PCP - General Family Practice 09/30/21 documented as of this encounter
--- OUTSIDE RECORDS SUMMARY | 2022-08-19 10:46 | XMS_ITS | Encounter Summary ---
:1960 Author Organization [employer] Address [address] [place] [address] Care Team Providers Name Role Phone Cintia Cobb MD Primary Care Provider [phone] Reason for Visit Reason Comments QUESTIONS, GENERAL Encounter Details Date Type Department Care Team Description 01/15/2022 Telephone Specialty Center [address] Delgado Gottlieb MD QUESTIONS, GENERAL Orthopedics Clinic [address] [place] [address] [place] [address] [phone] Social History Tobacco Use Types Packs/Day Years [...] - 01/23/2022 8:53 AM CDT TR at [phone] and follow the prompt for [facility] and ask to speak with one of the nurses. Rosetta Ye RN 01/23/2022, 8:53 AM Rosetta Ye RN - 01/21/2022 10:06 AM CDT [facility] at [phone] and follow the prompt for [facility] and [...] Attempted to reach on home phone - [facility] at [phone] and follow the prompt for [facility] and [...] 09/15/2022 Appointment Orthopedics Delgado Gottlieb MD [address] [place] [phone] (Wo rk) 10/08/2022 Appointment Orthopedics Delgado Gottlieb MD [address] [place] [address] (Wo rk) 05/27/2023 Appointment Chemo Therapy/Infusion Services documented as of this encounter Visit Diagnoses Not on filedocumented in this encounter Care Teams Nurse Executive Relationship Specialty Start Date End Date Cintia Cobb MD PCP - General Family Practice 09/30/21 documented as of this encounter
--- OUTSIDE RECORDS SUMMARY | 2022-08-19 10:46 | XMS_ITS | Encounter Summary ---
:1960 Author Organization [facility] Address [address] [place] [address] Care Team Providers Name Role Phone Cintia Cobb MD Primary Care Provider [phone] Reason for Visit Reason Comments OSTEOPOROSIS Consult/Transfer Care (Routine) - New Request Specialty Diagnoses / Procedures Referred By Contact Refer red To Contact Diagnoses Low bone density Delgado Gottlieb MD [address] [place] [address] Referral ID Status Reason Start Date Expiration Date Visits V isits Requested Authorized [id number] New Request 10/16/2021 01/15/2023 1 1 Encounter Details Date Type Department Care Team Description 01/08/2022 Office Visit [facility]mer Valladares[facility] osteoporosis with [address] [place] [address] current pathological [place], [place] [address] [place], [place] fracture, initial [phone] encounter (Primary [phone] (Wo rk) Dx) Social History Tobacco Use [...] you contact your insurance to verify your dvv-ih-[id number] expense for all medications, as it may [...] daily through food and supplements. Vitamin D: 8876-6221 IU daily Exercise Aerobic Exercise: Work your [...] ice pack on the infusionsite or taking usgn-idn-patpkbk pain relievers such as acetaminophen as detailed [...] Treatment History Fosamax- years ago prescribed through [facility] History The patient [...] baseline bone density test (first one at [facility]) ?? VERTEBRAL FRACTURE ASSESSMENT: No vertebral fractures [...] the disease with the patient.The patient meets [facility] criteria for the clinical diagnosis of [...] 09/15/2022 Appointment Orthopedics Delgado Gottlieb MD [address] [place], [place] [address] (Wo rk) 10/08/2022 Appointment Orthopedics Delgado Gottlieb MD [address] [place] [phone] (Wo rk) 05/27/2023 Appointment Chemo Therapy/Infusion Services documented as of this encounter Visit Diagnoses Diagnosis Age-related osteoporosis with current pa thological fracture, initial encounter - Primary documented in this encounter Care Teams Tile And Marble Setter Relationship Specialty Start Date End Date Cintia Cobb MD PCP - General Family Practice 09/30/21 documented as of this encounter
--- OUTSIDE RECORDS SUMMARY | 2022-08-19 10:47 | XMS_ITS | Encounter Summary ---
:1960 Author Organization [facility] Address [address] [place] [address] Care Team Providers Name Role Phone Cintia Cobb MD Primary Care Provider [phone] Reason for Visit Reason Comments LAB RESULTS Critical lab result Encounter Details Date Type Department Care Team Description 10/16/2021 Telephone Specialty Center [address] Delgado Gottlieb, LAB RESULTS (Critical Orthopedics Clinic lab result ) [address] [place] [address] [place], [place] [phone] Social History Tobacco Use Types Packs/Day Years [...] Patient notified of the approval of the Igo and to not go over 3000 mg of Tylenol a day as there is Tylenol in the Igo. He verbalized understanding. Rosetta Ye RN 10/23/2021, 11:50 AM OCOPIER TECHNICIAN Rosetta Ye RN - 10/21/2021 9:00 AM CST [facility] at [phone] and follow the prompt for [facility] and ask to speak with one of the nurses. Letter sent Rosetta Ye RN 10/21/2021, 9:00 AM OCOPIER TECHNICIAN Rosetta Ye RN - 10/18/2021 8:51 AM CST [facility] at [phone] and follow the prompt for [facility] and ask to speak with one of the nurses. Rosetta Ye RN 10/18/2021, 8:51 AM OCOPIER TECHNICIAN Rosetta Ye RN - 10/17/2021 8:08 AM CST [facility] at [phone] and follow the prompt for [facility] and ask to speak with one of the nurses. Rosetta Ye RN 10/17/2021, 8:09 AM OCOPIER TECHNICIAN Delgado Gottlieb MD - 10/16/2021 9:15 PM CST Thanks. Igo refill approved and sent to the patient's pharmacy. I discussed this with him today but please remind them that he cannot take Tylenol with the Igo because it has acetaminophen already in it. [...] well documented resistance to receiving blood products. OCOPIER TECHNICIAN Rosetta Ye RN - 10/16/2021 3:37 PM [...] could get a script sent to the [facility] in [place]. Please advise. Thank you. Rosetta Ye RN 10/16/2021, 3:43 PM OCOPIER TECHNICIAN Rosetta Ye RN - 10/16/2021 2:55 PM [...] be willing to start an iron tablet. [facility] at [phone] and follow the prompt for [facility] and ask to speak with one of the nurses. Rosetta Ye RN 10/16/2021, 3:12 PM OCOPIER TECHNICIAN documented in this encounter Plan of Treatment Upcoming Encounters Date Type Specialty Care Team Description 09/15/2022 Appointment Orthopedics Delgado Gottlieb MD [address] [place], [place] [address] (Wo rk) 10/08/2022 Appointment Orthopedics Delgado Gottlieb MD [address] [place] [phone] (Wo rk) 05/27/2023 Appointment Chemo Therapy/Infusion Services documented as of this encounter Visit Diagnoses Not on filedocumented in this encounter Care Teams Cardiology Teacher Relationship Specialty Start Date End Date Cintia Cobb MD PCP - General Family Practice 09/30/21 documented as of this encounter
--- OUTSIDE RECORDS SUMMARY | 2022-08-19 10:47 | XMS_ITS | Encounter Summary ---
:1960 Author Organization [facility] Address [address] [place] [address] Care Team Providers Name Role Phone Cintia Cobb MD Primary Care Provider [phone] Reason for Visit Reason Comments QUESTIONS, GENERAL Encounter Details Date Type Department Care Team Description 10/23/2021 Telephone Specialty Center [address] Delgado Gottlieb MD QUESTIONS, GENERAL Orthopedics Clinic [address] [place] [address] [place] [address] [phone] Social History Tobacco Use Types Packs/Day Years [...] as of this encounter Nursing Notes Jenniffer Carpentre RN - 10/23/2021 12:30 PM CST Called and spoke with the patient's spouse and relayed the information. Michael Sargent verbal permission was given this AM to speak with his spouse. She appreciated the information. Jenniffer Carpenter RN 10/23/2021, 12:31 PM ANY LAUNDRY WORKER Delgado Gottlieb MD - 10/23/2021 12:03 PM CST Methocarbamol refill approved. Thanks. ANY LAUNDRY WORKER Rosetta Ye RN - 10/23/2021 11:33 AM CST I spoke with Dr Gottlieb regarding patients request. He is approving to be off work through 12/29/2021.Letter has been written and patient notified. Letter placed at medical front desk coordinator of third floor check in, per patient request. Date of Surgery: 10/01/2021 ORIF of left supracondylar distal femur fracture, utilizing both plate and nail fixation Patient is also requesting a refill of the robaxin. Last refill on 10/02/2021 for 30 tabs. Please advise. Thank you. Rosetta Ye RN 10/23/2021, 11:45 AM ANY LAUNDRY WORKER Rosetta Ye RN - 10/23/2021 11:20 AM CST I spoke with Ed who states that he needs a letter for his insurance stating his injury and about howlong he would be off work. He would like to be able to pick this up today since we are not able to do email. Rosetta Ye RN 10/23/2021, 11:21 AM ANY LAUNDRY WORKER Nory Krishna - 10/23/2021 11:04 AM CST Has the patient recently had surgery or an injury? No How may we help you today? Patient decline to disclose any information. Nory Padilla Mai 10/23/2021, 11:06 AM ANY LAUNDRY WORKER documented in this encounter Plan of Treatment Upcoming Encounters Date Type Specialty Care Team Description 09/15/2022 Appointment Orthopedics Delgado Gottlieb MD [address] [place], [place] [address] (Wo rk) 10/08/2022 Appointment Orthopedics Delgado Gottlieb MD [address] [place], [place] [address] (Gavi rk) 05/27/2023 Appointment Chemo Therapy/Infusion Services documented as of this encounter Visit Diagnoses Not on filedocumented in this encounter Care Teams Broadcaster Relationship Specialty Start Date End Date Cintia Cobb MD PCP - General Family Practice 09/30/21 documented as of this encounter
--- OUTSIDE RECORDS SUMMARY | 2022-08-19 10:47 | XMS_ITS | Encounter Summary ---
:1960 Author Organization [facility] Address [address] [place] [address] Care Team Providers Name Role Phone Cintia Cobb MD Primary Care Provider [phone] Reason for Visit Reason Comments QUESTIONS, GENERAL Encounter Details Date Type Department Care Team Description 11/06/2021 Telephone Specialty Center [address] Delgado Gottlieb MD QUESTIONS, GENERAL Orthopedics Clinic [address] [place] [address] [place] [address] [phone] Social History Tobacco Use Types Packs/Day Years [...] Parker RN - 11/07/2021 10:04 AM CST [facility] at [phone] and follow the prompt for [facility] and [...] you. Rosetta Ye RN 11/06/2021, 4:24 PM Davin Diggs - 11/06/2021 3:32 PM CST Pt would like a call back from the care team. He wouldn't give any information on this and states that he will be by his phone for the next 5 minutes. Please call to advise. Mary Acosta - 11/06/2021 3:30 PM CST Patient said he wants Rosetta to call him back today. He said not tomorrow, not next month, but today. When asked the reason for his call he stated it is personal. He insisted to be put thru to Rosetta and process description writer indicated she is not available and would call him back. He said he would hold and process description writer said he would get a call back. Signs Cleaner repeated this three times. Mary Acosta 11/06/2021, 3:32 PM documented in this encounter Plan of Treatment Upcoming Encounters Date Type Specialty Care Team Description 09/15/2022 Appointment Orthopedics Delgado Gottlieb MD [address] [place] [phone] (Gavi presley) 10/08/2022 Appointment Orthopedics Delgado Gottlieb MD [address] [place] [place] [phone] (Gavi presley) 05/27/2023 Appointment Chemo Therapy/Infusion Services documented as of this encounter Visit Diagnoses Not on filedocumented in this encounter Care Teams Strap Folding Machine Operator Relationship Specialty Start Date End Date Cintia Cobb MD PCP - General Family Practice 09/30/21 documented as of this encounter
--- OUTSIDE RECORDS SUMMARY | 2022-08-19 10:47 | XMS_ITS | Encounter Summary ---
:1960 Author Organization [facility] Address [address], [place] [address] Care Team Providers Name Role Phone Cintia Cobb MD Primary Care Provider [phone] Encounter Details Date Type Department Care Team Description 10/02/2021 Orders Only RH S9 Suzie Daigle, PA-C [address] [facility] [address] [place] [address] [place] [address] [phone] (Gavi presley) Social History Tobacco Use Types [...] 09/15/2022 Appointment Orthopedics Delgado Gottlieb MD [address] [place], [place] [address] (Gavi rk) 10/08/2022 Appointment Orthopedics Delgado Gottlieb MD [address] [place], [place] [address] (Wo rk) 05/27/2023 Appointment Chemo Therapy/Infusion Services documented as of this encounter Visit Diagnoses Not on filedocumented in this encounter Care Teams Machine Whitener Relationship Specialty Start Date End Date Cintia Cobb MD PCP - General Family Practice 09/30/21 documented as of this encounter
--- OUTSIDE RECORDS SUMMARY | 2022-08-19 10:47 | XMS_ITS | Encounter Summary ---
:1960 Author Organization [facility] Address [address] [place] [address] Care Team Providers Name Role Phone Cintia Cobb MD Primary Care Provider [phone] Reason for Referral Consult/Transfer Care (Routine) - New Request Specialty Diagnoses / Procedures Referred By Contact Refer red To Contact Diagnoses Low bone density Delgado Gottlieb MD [address] [place] [address] Referral ID Status Reason Start Date Expiration Date Visits V isits Requested Authorized [id number] New Request 10/16/2021 01/15/2023 1 1 Scheduling Instructions Your provider has recommended an appoint ment with [facility]. You can quickly make your appointment online at PaymentOne/schedule. You can also call [phone] for help scheduling yo ur appointment. We suggest you call your health insurance company about your cove rage and benefits for this appointment. N ROOM ASSEMBLER Procedure/Equipment (Routine) - Incomplete Specialty Diagnoses / Procedures Referred By Contact Refer red To Contact Diagnoses Closed fracture of distal end of left femur with routine healing, unspecified fracture morphology, subsequent encounter Delgado Gottlieb MD Procedures XR Femur Lt 2 Views [address] [place] [address] Referral ID Status Reason Start Date Expiration Date Visits V isits Requested Authorized [id number] Incomplete 10/16/2021 01/15/2023 1 1 N ROOM ASSEMBLER Reason for Visit Reason Comments POST-OP,EXAM Consult/Transfer Care (Routine) - New Request Specialty Diagnoses / Procedures Referred By Contact Refer red To Contact Diagnoses Closed fracture of distal end of left femur, unspecified fracture morphology, initial encounter ([facility]) Suzie Daigle PA-C [address] [place] [address] Referral ID Status Reason Start Date Expiration Date Visits V isits Requested Authorized [id number] New Request 10/02/2021 01/01/2023 1 1 Encounter Details Date Type Department Care Team Description 10/16/2021 Office Visit Specialty Center Delgado Gottlieb, Domenica bell fracture of distal end of left femur with routine healing, unspecified fracture morphology, subsequent encounter (Primary Dx); [address] [facility] Low bone density [address] [place] [address] [place], [place] [phone] [id number] Social History Tobacco Use Types Packs/Day Years [...] 10:20 AM CST ORTHOPAEDICS DEPARTMENT PHONE NUMBER: [phone] Reason for today's visit: POST-OP,EXAM Treatment plan: [...] You can get them done at any [facility] lab. Call [phone] to schedule a DEXA Scan to see how strong your bones are. [facility] will be contacting you to schedule a Bone Health Consultwith them, or you can call [phone], to discuss the results of your bone health screening and any treatments that you may need. This can be done in person or via a video visit using the [employer] jannie. [place] were removed today, and steri-strips applied. Leave [...] taken with your next Orthopaedics appointment. Please [id number] minutes early for your appointment. Reason for next Orthopaedics appointment: Post op ORIF/IMN supracondylar distal femur fx DOS: 10/01/2021 Please stop at the check out desk to schedule a follow up appointment. Use this grid to write down your next appointment. DATE & TIME PROVIDER LOCATION APPT NOTES ( ) [facility]: [address] [place] [address] ( ) [facility]: [address] [place], [place] ( ) Other: Post op ORIF/IMN supracondylar distal femur fx DOS: 10/01/2021 ( ) [facility]: [address] [place] [address] ( ) [facility] [address] [place], [place] ( ) Other: If you have any questions about your visit, your symptoms, your medication, your test results or it is not clear what your diagnosis or treatment plan is please contact us at [phone] or send us a secure message via [employer]. You may receive a survey in the mail regarding your visit today. Your feedback is very important to us, please take a moment to complete the survey which is completely anonymous. If you would like to speak to someone specifically, you may contact the clinic at [phone] and your call will be directed to someone on our leadership team. Thank you for choosing Delgado Gottlieb MD and [facility]. Did you know, you can now reach us for appointment scheduling seven days a week, 365 days a year from 7am to 9pm? Just call our main number, , listen to the prompts and you will be connected to a inbound customer service representative who can assist you with your appointment scheduling needs. N ROOM ASSEMBLER documented in this encounter Progress Notes Delgado [...] week in his local area at a [facility]. He notes that he was told he would get exercises by the inpatient PT at [facility], though never received these. 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 Delgado Gottlieb MD Water And Gas Helper [facility] Department of Orthopaedic Surgery [facility] ADDENDUM: The patient's bone health labs [...] if he develops any symptoms of anemia. N ROOM ASSEMBLER documented in this encounter Plan of Treatment Upcoming Encounters Date Type Specialty Care Team Description 09/15/2022 Appointment Orthopedics Delgado Gottlieb MD [address] [place], [place] [id number] (Wo rk) 10/08/2022 Appointment Orthopedics Delgado Gottlieb MD [address] [place], [place] [address] (Wo rk) 05/27/2023 Appointment Chemo Therapy/Infusion Services Scheduled Referrals Name Type Priority Associated Diagnoses Order S chedule Osteoporosis-Orthopedics Referral Routine Low bone density Ordered: 10/16/2021 [[id number]] documented as of this encounter Results VITAMIN D 25-HYDROXY, TOTAL (V77.99) (10/16/2021 11:39 AM CLEAN ROOM ASSEMBLER) [facility] Method Time Signature Vitamin D, 69 30 - 80 10/16/2021 [facility] 25-OH, Total ng/mL 3:06 PM CLEAN ROOM ASSEMBLER CENTRAL LAB Specimen Anatomical Collection Method / Collection Time Recei shahid Time (Source) Location / Volume Laterality Blood Venipuncture / 10/16/2021 11:39 2 Unknown AM CLEAN ROOM ASSEMBLER 11:39 AM CLEAN ROOM ASSEMBLER Delgado Gottlieb MD LAB_1 Performing Organization Address [facility] Phon e Number [facility]AL LAB [address] [address] TSH, SENSITIVE (10/16/2021 11:39 AM CLEAN ROOM ASSEMBLER) [facility] Method Time Signature TSH, Sensitive 1.10 0.30 - 10/16/2021 [facility] 4.50 3:10 PM CLEAN ROOM ASSEMBLER CENTRAL LAB uIU/mL Specimen Anatomical Collection Method / Collection Time Recei shahid Time (Source) Location / Volume Laterality Blood Venipuncture / 10/16/2021 11:39 2 Unknown AM CLEAN ROOM ASSEMBLER 11:39 AM CLEAN ROOM ASSEMBLER Delgado Gottlieb MD LAB_1 Performing Organization Address [facility] Phon e Number [facility] [address] [address] (ABNORMAL) Intact PTH (10/16/2021 11:39 AM CLEAN ROOM ASSEMBLER) P athologist Signature Intact PTH 107 (H) 10 - 100 10/16/2021 [facility] pg/mL 2:37 PM CLEAN ROOM ASSEMBLER HOSPITAL Specimen Anatomical Collection Method / Collection Time Recei shahid Time (Source) Location / Volume Laterality Blood Venipuncture / 10/16/2021 11:39 2 Unknown AM CLEAN ROOM ASSEMBLER 11:39 AM CLEAN ROOM ASSEMBLER Delgado Gottlieb MD LAB_1 Performing Organization Address City/State/[place] [address] (ABNORMAL) Comp Metabolic Panel (10/16/2021 11:39 AM CLEAN ROOM ASSEMBLER) [facility] Method Time Signature Sodium 138 136 - 145 10/16/2021 [facility] mmol/L 2:58 PM CLEAN ROOM ASSEMBLER CENTRAL LAB Potassium 4.7 3.5 - 5.1 10/16/2021 [facility] mmol/L 2:58 PM CLEAN ROOM ASSEMBLER CENTRAL LAB Chloride 107 98 - 109 10/16/2021 [facility] mmol/L 2:58 PM CLEAN ROOM ASSEMBLER CENTRAL LAB CO2 21 20 - 29 10/16/2021 [facility] mmol/L 2:58 PM CLEAN ROOM ASSEMBLER CENTRAL LAB Anion Gap 10 7 - 16 10/16/2021 [facility] mmol/L 2:58 PM CLEAN ROOM ASSEMBLER CENTRAL LAB Calcium 9.0 8.4 - 10/16/2021 [facility] 10.4 2:58 PM CLEAN ROOM ASSEMBLER CENTRAL LAB mg/dL BUN 26 7 - 26 10/16/2021 [facility] mg/dL 2:58 PM CLEAN ROOM ASSEMBLER CENTRAL LAB Creatinine 1.08 0.73 - 10/16/2021 [facility] 1.18 2:58 PM CLEAN ROOM ASSEMBLER CENTRAL LAB mg/dL GFR, Estimated >60 >60 10/16/2021 [facility] mL/min/1. 2:58 PM CLEAN ROOM ASSEMBLER CENTRAL LAB 73m2 Alkaline 79 40 - 150 10/16/2021 [facility] Phosphatase U/L 2:58 PM CLEAN ROOM ASSEMBLER CENTRAL LAB AST (SGOT) 12 10 - 40 10/16/2021 [facility] U/L 2:58 PM CLEAN ROOM ASSEMBLER CENTRAL LAB ALT (SGPT) 11 0 - 55 10/16/2021 [facility] U/L 2:58 PM CLEAN ROOM ASSEMBLER CENTRAL LAB Bilirubin, 0.5 0.2 - 1.2 10/16/2021 [facility] Total mg/dL 2:58 PM CLEAN ROOM ASSEMBLER CENTRAL LAB Protein, Total 6.1 (L) 6.4 - 8.3 10/16/2021 [facility] g/dL 2:58 PM CLEAN ROOM ASSEMBLER CENTRAL LAB Albumin 3.4 (L) 3.5 - 5.0 10/16/2021 [facility] g/dL 2:58 PM CLEAN ROOM ASSEMBLER CENTRAL LAB Glucose 110 (H) 70 - 100 10/16/2021 [facility] mg/dL 2:58 PM CLEAN ROOM ASSEMBLER CENTRAL LAB Comment: The given reference range is fo r the fasting state. Non-fasting reference range for glucose is 70 - 180 mg/dL. Hours Fasting 4 10/16/2021 2:58 PM CLEAN ROOM ASSEMBLER [facility] 435 LABORATORY Specimen Anatomical Collection Method / Collection Time Recei shahid Time (Source) Location / Volume Laterality Blood Venipuncture / 10/16/2021 11:39 2 Unknown AM CLEAN ROOM ASSEMBLER 11:39 AM CLEAN ROOM ASSEMBLER Delgado Gottlieb MD LAB_1 Performing Organization Address City/State/ZIP Code Phon e Number [facility] CENTRAL LAB [address] [address] LABORATORY XR Femur Lt 2 Views (10/16/2021 10:01 AM CLEAN ROOM ASSEMBLER) Anatomical Region Laterality Modality Lower Extremity, Leg, Thigh Computed Rad iography Specimen (Source) Anatomical Collection Method Collection Time Re ceived Time Location / / Volume Laterality 10/16/2021 10:01 AM CLEAN ROOM ASSEMBLER Narrative 10/16/2021 2:21 PM CLEAN ROOM ASSEMBLER EXAM: XR FEMUR LT 2 VIEWS LOCATION: [place] [address] DATE/TIME: 10/16/2021 10:01 AM INDICATION: Open reduction [...] bone density Aftercare following surgery of the [facility] Aftercare following surgery of the [facility], NEC documented in this encounter Care Teams Differential Repairer Relationship Specialty Start Date End Date Cintia Cobb MD PCP - General Family Practice 09/30/21 documented as of this encounter
--- OUTSIDE RECORDS SUMMARY | 2022-08-19 10:47 | XMS_ITS | Encounter Summary ---
:1960 Author Organization [facility] Address [address] [place] [address] Care Team Providers Name Role Phone Cintia Cobb MD Primary Care Provider [phone] Reason for Visit Reason Comments QUESTIONS, GENERAL Encounter Details Date Type Department Care Team Description 10/07/2021 Telephone Specialty Center 435 Delgado Gottlieb MD QUESTIONS, GENERAL Orthopedics Clinic [address] [place] [address] [place] [address] [phone] Social History Tobacco Use Types Packs/Day Years [...] as scheduled. He states he lives in [place] and was just trying to see if [...] he would like the order faxed to [facility] [place] [facility] at [phone] ATTN: Lesli. Order faxed as requested. Rosetta Ye RN 10/07/2021, 12:49 PM Delgado Loyola MD - 10/07/2021 11:43 AM CST Given the complexity of this patient's injury my preference would be that he continue to see me for now. However, if he is still resistant to that then one option would be to arrange followup with Drs. Edge or Marcello at [facility]. There are no ortho trauma surgeons at [facility] so that would not be an option for followup of this injury. Thanks. Freddy Lua - 10/07/2021 10:04 AM CST Has the patient recently had surgery or an injury? Yes. Date of Surgery: September 30, 2021 Type of Surgery: Left ORIF distal femur How may we help you today? Patient called, wanting to transfer care to [facility] due to convenience, please call to advise Describe your symptoms/concerns: Left femur S/P ORIF When did the issue start: 09/30/21 Have you been seen for this recently?: Yes Dr. Gottlieb [Supervisor Riveting/Appt Center: If yes, please include date and provider.] Is it okay to leave detailed message on your voicemail? Yes [Supervisor Riveting/Appt Center: If this call is after 3 p.m., communicate to patient: If we are not able to get back to you by the end of the day and your symptoms worsen please contact the Careline] RLOCKING AND SIGNAL MECHANIC documented in this encounter Plan of Treatment Upcoming Encounters Date Type Specialty Care Team Description 09/15/2022 Appointment Orthopedics Delgado Gottlieb MD [address] [place], [place] [address] (Wo rk) 10/08/2022 Appointment Orthopedics Delgado Gottlieb MD [address] [place], [place] [address] (Wo rk) 05/27/2023 Appointment Chemo Therapy/Infusion Services documented as of this encounter Visit Diagnoses Not on filedocumented in this encounter Care Teams Incident Response Specialist Relationship Specialty Start Date End Date Cintia Cobb MD PCP - General Family Practice 09/30/21 documented as of this encounter
--- OUTSIDE RECORDS SUMMARY | 2022-08-19 10:47 | XMS_ITS | Encounter Summary ---
:1960 Author Organization [facility] Address [address] [address] Care Team Providers Name Role Phone Cintia Cobb MD Primary Care Provider [phone] Reason for Visit Procedure/Equipment (Routine) - Incomplete Specialty Diagnoses / Procedures Referred By Contact Refer red To Contact Diagnoses Closed fracture of distal end of left femur with routine healing, unspecified fracture morphology, subsequent encounter Delgado Gottlieb MD Procedures XR Femur Lt 2 Views [address] [place] [address] Referral ID Status Reason Start Date Expiration Date Visits V isits Requested Authorized [id number] Incomplete 10/16/2021 01/15/2023 1 1 Encounter Details Date Type Department Care Team Description 10/16/2021 Ancillary [facility] Procedure Specialty Center Angélica Tadeo surgery of the Radiology [address] musculoskeletal system 435 [facility] [place] [address] [facility] [phone] [place] [address] Social History Tobacco Use Types Packs/Day Years [...] 09/15/2022 Appointment Orthopedics Delgado Gottlieb MD [address] [place], [place] [address] (Wo rk) 10/08/2022 Appointment Orthopedics Delgado Gottlieb MD [address] [place] [address] (Wo rk) 05/27/2023 Appointment Chemo Therapy/Infusion Services documented as of this encounter Procedures Procedure Name Priority Date/Time Associated Diagnosis Comme nts XR FEMUR LT 2 Routine 10/16/2021 10:01 Aftercare following Res ults for this VIEWS AM APARTMENT HOTEL MANAGER surgery of the procedure are in musculoskeletal system the r esults section. documented in this encounter Results XR Femur Lt 2 Views (10/16/2021 10:01 AM APARTMENT HOTEL MANAGER) Anatomical Region Laterality Modality Lower Extremity, Leg, Thigh Computed Rad iography Specimen (Source) Anatomical Collection Method Collection Time Re ceived Time Location / / Volume Laterality 10/16/2021 10:01 AM APARTMENT HOTEL MANAGER Narrative 10/16/2021 2:21 PM APARTMENT HOTEL MANAGER EXAM: XR FEMUR LT 2 VIEWS LOCATION: [place] [address] DATE/TIME: 10/16/2021 10:01 AM INDICATION: Open reduction [...] EXAM: XR FEMUR LT 2 VIEWS LOCATION: [place] [address] DATE/TIME: 10/16/2021 10:01 AM INDICATION: Open reduction [...] Diagnoses Diagnosis Aftercare following surgery of the [facility] system [facility] documented in this encounter Care Teams Entrance Guard Relationship Specialty Start Date End Date Cintia Cobb MD PCP - General Family Practice 09/30/21 documented as of this encounter
--- OUTSIDE RECORDS SUMMARY | 2022-08-19 10:47 | XMS_ITS | Encounter Summary ---
:1960 Author Organization [facility] Address [address] [place] [address] Care Team Providers Name Role Phone Cintia Cobb MD Primary Care Provider [phone] Reason for Visit Reason Comments QUESTIONS, GENERAL Encounter Details Date Type Department Care Team Description 10/08/2021 Telephone Specialty Center [address] Delgado Gottlieb MD QUESTIONS, GENERAL Orthopedics Clinic [address] [place] [address] [place] [address] [phone] Social History Tobacco Use Types Packs/Day Years [...] basement. Rosetta Ye RN 10/08/2021, 3:24 PM STAY STITCHER documented in this encounter Plan of Treatment Upcoming Encounters Date Type Specialty Care Team Description 09/15/2022 Appointment Orthopedics Delgado Gottlieb MD [address] [place] [address] (Gavi presley) 10/08/2022 Appointment Orthopedics Delgado Gottlieb MD [address] [place] [address] (Gavi presley) 05/27/2023 Appointment Chemo Therapy/Infusion Services documented as of this encounter Visit Diagnoses Not on filedocumented in this encounter Care Teams Awning Craftsman Relationship Specialty Start Date End Date Cintia Cobb MD PCP - General Family Practice 09/30/21 documented as of this encounter
--- OUTSIDE RECORDS SUMMARY | 2022-08-19 10:47 | XMS_ITS | Encounter Summary ---
:1960 Author Organization [facility] Address [address] [place] [address] Care Team Providers Name Role Phone Cintia Cobb MD Primary Care Provider [phone] Reason for Visit Procedure/Equipment (Routine) - Incomplete Specialty Diagnoses / Procedures Referred By Contact Refer red To Contact Diagnoses Closed fracture of distal end of left femur with routine healing, unspecified fracture morphology, subsequent encounter Delgado Gottlieb MD Procedures XR Femur Lt [address] [place] [address] Referral ID Status Reason Start Date Expiration Date Visits V isits Requested Authorized [id number] Incomplete 11/27/2021 02/26/2023 1 1 Encounter Details Date Type Department Care Team Description 11/27/2021 Ancillary [facility] Closed frac ture of Procedure Specialty Center Donnell Murray MD distal end of left Radiology [address] femur with routine [address] healing, [place] [address] [place], [place] unspecified [phone] [address] fracture [phone] morphology, (Work) subsequent [phone] encounter (Fax) Social History Tobacco Use Types [...] 09/15/2022 Appointment Orthopedics Delgado Gottlieb MD [address] [place], [place] [address] (Wo rk) 10/08/2022 Appointment Orthopedics Delgado Gottlieb MD [address] [place], [place] [address] (Wo rk) 05/27/2023 Appointment [...] EXAM: XR FEMUR LT 2 VIEWS LOCATION: [facility] 435 DATE/TIME: 11/27/2021 9:59 AM INDICATION: Open reduction internal fixa tion of left supracondylar distal femur fracture COMPARISON: 10/16/2021 IMPRESSION: ORIF of the left femur. No n ew hardware complication. Incomplete healing of a distal left femur fracture. Procedure Note Sebas Thompson MD - 11/27/2021Formatti ng of this note might be different from the original. EXAM: XR FEMUR LT 2 VIEWS LOCATION: [facility] 435 DATE/TIME: 11/27/2021 9:59 AM INDICATION: Open [...] r documented in this encounter Care Teams Fluid Pump Operator Relationship Specialty Start Date End Date Cintia Cobb MD PCP - General Family Practice 09/30/21 documented as of this encounter
--- OUTSIDE RECORDS SUMMARY | 2022-08-19 10:47 | XMS_ITS | Encounter Summary ---
:1960 Author Organization [facility] Address [address] [place] [address] Care Team Providers Name Role Phone Cintia Cobb MD Primary Care Provider [phone] Reason for Visit Reason Comments QUESTIONS, GENERAL Encounter Details Date Type Department Care Team Description 10/14/2021 Telephone Specialty Center 435 Delgado Gottlieb MD QUESTIONS, GENERAL Orthopedics Clinic [address] [place] [address] [place] [address] [phone] Social History Tobacco Use Types Packs/Day Years [...] maybe had 4 total in the hospital. Qryit365 mg arthritis strength BID and ibuprofen 400 [...] clinic appt on 10/16/21. 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 Jenniffer Carpenter RN 10/14/2021, 10:57 AM Jenni An - 10/14/2021 10:47 AM CST Ed called wanting to speak with Rosetta. He stated that it was urgent and need to speak with her JEY.It Lead had asked what it was regarding and patient had hung up the call. Ed also stated prior to thecall was disconnected that his phone does not incoming calls. It Lead was unable to get the best callback number. Please advise. Jenni Sanchez 10/14/2021, 10:49 AM PACKER documented in this encounter Plan of Treatment Upcoming Encounters Date Type Specialty Care Team Description 09/15/2022 Appointment Orthopedics Delgado Gottlieb MD [address] [place] [address] (Wo rk) 10/08/2022 Appointment Orthopedics Delgado Gottlieb MD [address] [place], [place] [address] (Wo rk) 05/27/2023 Appointment Chemo Therapy/Infusion Services documented as of this encounter Visit Diagnoses Not on filedocumented in this encounter Care Teams Sales Operations Specialist Relationship Specialty Start Date End Date Cintia Cobb MD PCP - General Family Practice 09/30/21 documented as of this encounter
--- OUTSIDE RECORDS SUMMARY | 2022-08-19 10:47 | XMS_ITS | Encounter Summary ---
:1960 Author Organization [facility] Address [address] [place] [address] Care Team Providers Name Role Phone Cintia Cobb MD Primary Care Provider [phone] Reason for Visit Auth/Cert Specialty Diagnoses / [...] Expiration Date Visits Requ ested Visits Authorized [id number] 1 1 Encounter Details Date Type Department Care Team Description 10/02/2021 Ancillary Procedure [facility] [address] [place] [address] Social History Tobacco Use Types Packs/Day Years [...] 09/15/2022 Appointment Orthopedics Delgado Gottlieb MD [address] [place] [address] (Wo rk) 10/08/2022 Appointment Orthopedics Delgado Gottlieb MD [address] [place], [place] [address] (Wo rk) 05/27/2023 Appointment Chemo Therapy/Infusion Services documented as of this encounter Procedures Procedure Name Priority Date/Time Associated Diagnosis Comme nts XR FEMUR LT 2 VIEWS Routine 10/02/2021 10:21 AM R esults for this DAT INSTRUCTOR procedure are i n the results section. documented in this encounter Results XR Femur Lt 2 Views (10/02/2021 10:21 AM DAT INSTRUCTOR) Anatomical Region Laterality Modality Lower Extremity, Leg, Thigh Computed Rad iography Specimen (Source) Anatomical Collection Method Collection Time Re ceived Time Location / / Volume Laterality 10/02/2021 10:21 AM DAT INSTRUCTOR Narrative 10/02/2021 10:37 AM DAT INSTRUCTOR EXAM: XR FEMUR LT 2 VIEWS [...] on filedocumented in this encounter Care Teams Sign Wirer Relationship Specialty Start Date End Date Cintia Cobb MD PCP - General Family Practice 09/30/21 documented as of this encounter
--- OUTSIDE RECORDS SUMMARY | 2022-08-19 10:47 | XMS_ITS | Encounter Summary ---
:1960 [facility] Address [address], [place] [address] Care Team Providers Name Role Phone Kevin Bullock MD Primary Care Provider [phone] Reason for Referral Therapies (Routine) - New Request Specialty Diagnoses / Procedures Referred By Contact Refer red To Contact Diagnoses Closed fracture of distal end of left femur, unspecified fracture morphology, initial encounter (HRC) Martha Gottlieb MD [address] [place] [address] Referral ID Status Reason Start Date Expiration Date Visits V isits Requested Authorized [id number] New Request 10/03/2021 10/03/2022 1 1 Scheduling Instructions Your provider has recommended an appoint ment with a [facility] Physical Therapist. Call [facility] at . We suggest you call your health insurance company about your coverage an d benefits for this appointment. IZATION MANAGEMENT MANAGER Consult/Transfer Care (Routine) - New Request Specialty Diagnoses / Procedures Referred By Contact Refer red To Contact Diagnoses Closed fracture of distal end of left femur, unspecified fracture morphology, initial encounter (HRC) Suzie Daigle PA-C [address] [place] [address] Referral ID Status Reason Start Date Expiration Date Visits V isits Requested Authorized [id number] New Request 10/02/2021 01/01/2023 1 1 Scheduling Instructions Your provider has recommended an appoint ment with [facility]. You may call [phone] to schedule your appointment. We suggest you call your health insurance company a bout your coverage and benefits for this appointment. IZATION MANAGEMENT MANAGER Procedure/Equipment (Routine) - Incomplete Specialty Diagnoses / Procedures Referred By Contact Refer red To Contact Procedures Suzie Daigle PA-C XR Femur Lt 2 Views [address] [place] [address] Referral ID Status Reason Start Date Expiration Date Visits V isits Requested Authorized [id number] Incomplete 10/01/2021 12/31/2022 1 1 IZATION MANAGEMENT MANAGER (Routine) - Incomplete Specialty Diagnoses / Procedures Referred By Contact Refer red To Contact Procedures Martha Gottlieb MD XR C-Arm 3.5-[address] [place], [place] [address]EN [facility] XR C-Arm 2.5-3 Hours [place], [place] [address] Referral ID Status Reason Start Date Expiration Date Visits V isits Requested Authorized [id number] Incomplete 10/01/2021 12/31/2022 1 1 IZATION MANAGEMENT MANAGER Procedure/Equipment (Routine) - Incomplete Specialty Diagnoses / Procedures Referred By Contact Refer red To Contact Diagnoses Closed fracture of distal end of left femur, unspecified fracture morphology, initial encounter (HRC) Jonah Nova MD Procedures Case Request OR - Orthopedic Surgery: OPEN REDUCTION INTERNAL FIXATION SUPRACONDYLAR DISTAL FEMUR FRACTURE, INSERTION INTRAMEDULLARY NAIL SUPRACONDYLAR DISTAL FEMUR FRACTURE [address] [place] [address] Referral ID Status Reason Start Date Expiration Date Visits V isits Requested Authorized [id number] Incomplete 09/30/2021 12/30/2022 1 1 IZATION MANAGEMENT MANAGER Procedure/Equipment (Routine) - Incomplete Specialty Diagnoses / Procedures Referred By Contact Refer red To Contact Procedures Francisca Harvey MD XR Femur Lt 2 Views Lower [address] [facility] AP/[place] [address] XR Femur Lt 2 Views Referral ID Status Reason Start Date Expiration Date Visits V isits Requested Authorized [id number] Incomplete 09/30/2021 12/30/2022 1 1 IZATION MANAGEMENT MANAGER Procedure/Equipment (Routine) - Incomplete Specialty Diagnoses / Procedures Referred By Contact Refer red To Contact Procedures Jonah Nova MD XR Knee Lt 2 Views [address] [place] [address] Referral ID Status Reason Start Date Expiration Date Visits V isits Requested Authorized [id number] Incomplete 09/30/2021 12/30/2022 1 1 IZATION MANAGEMENT MANAGER Procedure/Equipment (Routine) - Incomplete Specialty Diagnoses / Procedures Referred By Contact Refer red To Contact Procedures Jonah Nova MD XR Pelvis AP W AP/Lat Hip Lt [address] [place] [address] Referral ID Status Reason Start Date Expiration Date Visits V isits Requested Authorized [id number] Incomplete 09/30/2021 12/30/2022 1 1 IZATION MANAGEMENT MANAGER Reason for Visit Reason Comments FRACTURE Auth/Cert [...] Expiration Date Visits Requ ested Visits Authorized [id number] 1 1 Encounter Details Date Type Department Care Team Description 09/30/2021 - Hospital Encounter RH S9 Jonah Nova MD [address] [place] [address] Closed fracture of distal end of left fe mur, unspecified fracture morphology, initial encounter (HRC) (Primary Dx); 10/03/2021 640 [facility] Josep Peck MD [address] [place] [address] Pain; [place], [place] Kay Mcadams, PA-C [address] [place] [address] Diabetes mellitus type II (HRC); [address] Martha Gottlieb MD [address] [place] [address] Diabetic peripheral neuropathy (HRC); [phone] Pain, lumbar re gion (HRC); Other chronic [...] Comments Blood Pressure 128/76 10/03/2021 1:54 PM UTILIZATION MANAGEMENT MANAGER Pulse 79 10/03/2021 1:54 PM UTILIZATION MANAGEMENT MANAGER Temperature 37 ??C (98.6 ??F) 10/03/2021 1:54 PM UTILIZATION MANAGEMENT MANAGER Respiratory Rate 18 10/03/2021 1:54 PM UTILIZATION MANAGEMENT MANAGER Oxygen Saturation 95% 10/03/2021 1:54 PM UTILIZATION MANAGEMENT MANAGER Inhaled Oxygen Concentration - - Weight 82.5 kg (181 lb 14.4 oz) 10/01/2021 2:00 AM UTILIZATION MANAGEMENT MANAGER Height 182.9 cm (6') 10/02/2021 12:00 AM UTILIZATION MANAGEMENT MANAGER Body Mass Index 24.67 10/01/2021 2:00 AM UTILIZATION MANAGEMENT MANAGER documented in this encounter Discharge Summaries Suzie Daigle PA-C - 10/02/2021 8:50 AM CST [facility] Orthopedic Discharge Note Patient Name: Noemí [...] Date: 10/16/2021 Time: 10:20a Provider: Dr. Gottlieb [facility]: Orthopaedic & Sports Medicine; ( FAMILY OF CARE REFERRAL) [phone]; [address] [place] [address] References: Specialty Connection Sari Melendrez Consult Page Question: Reason for visit? Answer: s/p ORIF IMN L femur Discharge Practitioner Electronic Signature Comments: Suzie Daigle PA-C 10/02/2021 8:43 AM These orders have been electronically signed. (In accordance with [place] Fed. Regulation Set, Fed A0232 - Types of Authentication) Weight bearing as tolerated Comments: You may resume normal weight bearing on the affected limb(s) as tolerated. Discharge Diet (see comments) Comments: Diabetic Follow Up: The patient will follow up with Martha Gottlieb MD in 2 weeks. At follow up, xrays should include L femur. This note completed by: Suzie Daigle PA-C IZATION MANAGEMENT MANAGER documented in this encounter Discharge Instructions Discharge InstructionsAisha Workman RN - 10/03/2021 8:15 AM CST Clinic Phone Numbers ??? [facility] Orthopa[facility] Clinic: [phone] ??? [facility] Orthopaedic Center: [phone] Labs and Warfarin (Coumadin) Information No data found. This information has been sent to the following clinic:{[facility] FAX DESTINATION:[id number]} [facility] ??? Always wash your hands [...] density, or have had a fracture, call [phone] to schedule an appointment. IZATION MANAGEMENT MANAGER documented in this encounter Medications at Time [...] Thompson MD - 10/03/2021 5:27 AM CST [facility] Orthopedic Surgery Progress Note Subjective: Patient sleeping [...] Edward Thompson MD Orthopedic Surgery, PGY-2 Pager: [phone] IZATION MANAGEMENT MANAGER Kay Mcadams PA-C - 10/02/2021 2:52 PM [...] Vera MD - 10/02/2021 5:07 AM CST [facility] Orthopedic Surgery Progress Note Subjective: Last evening [...] evaluated the patient. Nathen Burger MD, PGY-1 [facility] Orthopedic Surgery Pager: [phone] 10/02/2021 5:07 AM IZATION MANAGEMENT MANAGER Anika Lazo RN - 10/01/2021 4:21 PM CST I completed a full assessment and assessments as ordered and per policy on this patient during my work shift. Reassessments completed during my work shift are unchanged unless documented. IZATION MANAGEMENT MANAGER Kay Mcadams PA-C - 10/01/2021 4:00 PM CST Brief HM Note Unable to see patient today as he has been in the OR. Recommend repeat Hgb and consideration of IV iron if pt agreeable. Medicine will f/u tomorrow. Kay Mcadams PA-C Department [facility] Medicine IZATION MANAGEMENT MANAGER Josep Cervantes MD - 10/01/2021 5:40 AM CST [facility] Orthopedic Surgery Progress Note Subjective: Patient receiving [...] 2-4 days. F/U: BEE Cervantes MD, PGY-2 [facility] Orthopedic Surgery Pager: [phone] 10/01/2021 5:41 AM IZATION MANAGEMENT MANAGER documented in this encounter Procedure Notes Suzie Daigle PA-C - 10/01/2021 2:[address] [facility] Brief Operative Progress Note Surgery Date: [...] left femur x-rays needed. Suzie Daigle PA-C IZATION MANAGEMENT MANAGER Martha Gottlieb MD - 10/01/2021 12:00 AM CST NAME: [facility]: [id number] OPERATIVE REPORT DATE OF SURGERY: 10/01/2021 : [...] after the injury. He was brought to [facility] emergency department, where he was found to have a comminuted and displaced left supracondylar distal femur fracture. This was a closed injury, and he was neurovascularly intact. Of note, the patient had sustained an ipsilateral left intertrochanteric femur fracture in August of 2019for which he underwent short intramedullary nailing in [place], [place]. Prior to this most recent injury, the patient was ambulatory with a cane. 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 The IT band laterally was closed with #1 Vicryl [id number] sutures. All skin incisions were then closed with 2-0 Vicryl buried deepdermal sutures and chapis. A sterile compressive dressing was then applied and finally the leg was wrapped in a double length 6-inch Carmita wrap. The patient was transferred back to his hospital bed, andthe Munoz catheter was removed. He was awoken from anesthesia without incident and [facility] room in stable condition. COMPLICATIONS: None. [...] of the procedure. MARTHA GOTTLIEB MD RDW/AQS /[id number] IZATION MANAGEMENT MANAGER documented in this encounter Consult Notes Jaja Amor PA-C - 10/02/2021 10:40 AM CSTAssociated Order(s): ENDOCRINE CONSULT See consult note 10/01. Will continue to follow peripherally x24 hours. Glucose remains stable. Jaja Amor PA-C Endocrinology IZATION MANAGEMENT MANAGER Padmini Lima APRN, CNP - 10/01/2021 2:36 [...] you, Padmini Lima APRN, KORIN, Endocrinology nonbillable IZATION MANAGEMENT MANAGER Keyla Gilbert APRN, KORIN - 10/01/2021 7:20 [...] cane at baseline Works as a truck trailer final inspector Additional Osteoporosis Risk Factors: Tobacco/Alcohol: No current [...] for the patient. Keyla Gilbert APRN, KORIN IZATION MANAGEMENT MANAGER Ted Burdick MD - 09/30/2021 9:29 PM CST [facility] Pre-operative Exam Patient Name: Noemí Luna Date [...] JACKSON. 3.9 % 30-day risk of , OR, or cardiac arrest per RCRI. Neither of [...] extensive explanations of risks of anemia pre-operatively (OR, , etc) and screening for infections of [...] lose consciousness. Didn't hit head. 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 Worried that he will lose everything if [...] surgery on 10/01/[address] Peck at [facility]. Pre-operative Screening Questions: Tightening or pressure in [...] Procedure: ESOPHAGOGASTRODUODENOSCOPY; Surgeon: Rene Carlson M.D.; Location: [facility] GI LAB?? Medical devices from this surgery are in the Medical Devices section.?? CARDIAC PACEMAKER PLACEMENT ? OPEN REDUCTION INTERNAL FIXATION FEMUR 08/13/2019 Hip/Left Procedure: OPEN REDUCTION INTERNAL FIXATION LEFT FEMUR; Surgeon: John Norman M.D.; Location: [facility] OR?? Medical devices from this surgery [...] conditions: No # Acute coronary syndrome # OR < one month ago # decompensated heart [...] CC: consult --- End of Report --- IZATION MANAGEMENT MANAGER Martha Gottlieb MD - 09/30/2021 6:15 PM [...] obstruction who presentsas a transfer from the [place] ED with left distal thigh pain after [...] femur fracture by Dr. John Norman in [place], [place]. Location: Left distal thigh Time of Onset: today Severity: 8/10 Quality: sharp Radiation: none Exacerbating: movement, WB Alleviating: rest Associated symptoms: none Patient has been NPO since 1999 on 09/29/21. Patient lives with his and dog. Patient ambulates with a cane. 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 If there is no reply, if it is a weekend, or if it is after hours, then please page the orthopedic surgery service pager at [phone] Attestation: I saw and evaluated this patient and we have discussed the plan of care with the resident. I have personally reviewed the patient's imaging and laboratory data. I agree with the findings as detailed inthe resident's note. Martha Gottlieb MD Forensic Science Technician [facility] Department of Orthopaedic Surgery [facility] IZATION MANAGEMENT MANAGER documented in this encounter ED Notes Jonah Nova MD - 09/30/2021 6:14 PM CST [facility] Emergency Department Attending Supervision Note Pt Name: [...] and screen Admit Author: Jonah Nova MD IZATION MANAGEMENT MANAGER Francisca Harvey MD - 09/30/2021 5:45 PM CST [facility] Emergency Medicine Visit Note Chief Complaint: FRACTURE [...] his knee and was brought to the [place] ED for evaluation. There, was found to [...] and left knee imaging as images from [place] of the left knee are not available. [...] femur, unspecified fracture morphology, initial encounter (HRC) IZATION MANAGEMENT MANAGER Juan Miguel Rios MD - 09/30/2021 4:01 PM CST Referred from [facility] by MD for L femur fx. Background/plan: Slipped and fell this morning. L distal femur fx. CMS intact. No other hinjury. Noton anticoag. VSS Covid negative. Needs ortho Means of arrival: EMS Call back: none IZATION MANAGEMENT MANAGER documented in this encounter Plan of Treatment Upcoming Encounters Date Type Specialty Care Team Description 09/15/2022 Appointment Orthopedics Martha Gottlieb MD [address] [place], [place] [address] (Gavi presley) 10/08/2022 Appointment Orthopedics Martha Gottlieb MD [address] [place], [place] [address] (Gavi presley) 05/27/2023 Appointment Chemo Therapy/Infusion Services Pending Results Name Type Priority Associated Diagnoses Date/Ti me Transfuse RBC Nursing Transfusion Routine 022 3:23 AM UTILIZATION MANAGEMENT MANAGER Scheduled Referrals Name Type Priority Associated Diagnoses Order S chedule Orthopaedic/Sports Referral Routine Closed fracture of dis enra Ordered: 10/02/2021 Medicine Referral - end of left femur, Adult/Peds unspecified fracture morphology, initial encounter (HRC) Physical Therapy Referral Routine Closed fracture of dista l Ordered: 10/03/2021 end of left femur, unspecified fracture morphology, initial encounter (HRC) documented as of this encounter Procedures Procedure Name Priority Date/Time Associated Comments Diagnosis XR FEMUR LT 2 VIEWS Routine 10/02/2021 10:21 Resu lts for this AM UTILIZATION MANAGEMENT MANAGER procedure are i n the results section. VITAMIN D 25-HYDROXY, Routine 10/02/2021 8:22 Res ults for this TOTAL AM UTILIZATION MANAGEMENT MANAGER procedure are i n the results section. INTACT PTH Routine 10/02/2021 8:22 Results for this AM UTILIZATION MANAGEMENT MANAGER procedure are i n the results section. COMP METABOLIC PANEL Routine 10/02/2021 8:22 Resu lts for this AM UTILIZATION MANAGEMENT MANAGER procedure are i n the results section. TSH, SENSITIVE Routine 10/02/2021 8:22 Results fo r this AM UTILIZATION MANAGEMENT MANAGER procedure are i n the results section. COMPLETE BLOOD COUNT-NO Routine 10/02/2021 8:22 R esults for this DIFF AM UTILIZATION MANAGEMENT MANAGER procedure are i n the results section. GLUCOSE, WHOLE BLOOD POCT Routine 10/01/2021 3:00 Results for this PM UTILIZATION MANAGEMENT MANAGER procedure are i n the results section. XR C-ARM 3.5-4 HOURS Routine 10/01/2021 2:11 Resu lts for this PM UTILIZATION MANAGEMENT MANAGER procedure are i n the results section. HEMOGLOBIN, MEASURED POCT Routine 10/01/2021 10:52 Results for this AM UTILIZATION MANAGEMENT MANAGER procedure are i n the results section. GLUCOSE, WHOLE BLOOD POCT Routine 10/01/2021 10:48 Results for this AM UTILIZATION MANAGEMENT MANAGER procedure are i n the results section. INSERTION INTRAMEDULLARY 10/01/2021 9:59 Closed fractu re of NAIL FEMUR AM UTILIZATION MANAGEMENT MANAGER distal end of left femur, unspecified fracture morphology, initial encounter (HRC) OPEN REDUCTION INTERNAL 10/01/2021 9:59 Closed fractur e of FIXATION DISTAL FEMUR AM UTILIZATION MANAGEMENT MANAGER distal end of left FRACTURE femur, unspecified fracture morphology, initial encounter (HRC) GLUCOSE, WHOLE BLOOD POCT Routine 10/01/2021 9:16 Results for this AM UTILIZATION MANAGEMENT MANAGER procedure are i n the results section. ECG 12-LEAD ROUTINE(LAB Routine 10/01/2021 6:20 R esults for this PERFORM) AM UTILIZATION MANAGEMENT MANAGER procedure are i n the results section. [id number] ELECTROCARDIOGRAM STAT 10/01/2021 6:14 R esults for this TRACING AM UTILIZATION MANAGEMENT MANAGER procedure are i n the results section. IV INSERTION(LAB TO STAT 10/01/2021 2:34 Resul ts for this PERFORM) AM UTILIZATION MANAGEMENT MANAGER procedure are i n the results section. PREP RBC LR Routine 09/30/2021 11:01 Results for this PM UTILIZATION MANAGEMENT MANAGER procedure are i n the results section. XR PELVIS AP W AP/LAT HIP STAT 09/30/2021 7:32 Results for this LT PM UTILIZATION MANAGEMENT MANAGER procedure are i n the results section. XR FEMUR LT 2 VIEWS LOWER STAT 09/30/2021 7:32 Results for this AP/LAT PM UTILIZATION MANAGEMENT MANAGER procedure are i n the results section. XR KNEE LT 2 VIEWS STAT 09/30/2021 7:32 Result s for this PM UTILIZATION MANAGEMENT MANAGER procedure are i n the results section. CBC AND DIFFERENTIAL Routine 09/30/2021 7:02 Resu lts for this PANEL PM UTILIZATION MANAGEMENT MANAGER procedure are i n the results section. BT SECOND DRAW Routine 09/30/2021 7:02 Results fo r this PM UTILIZATION MANAGEMENT MANAGER procedure are i n the results section. COMPLETE BLOOD Routine 09/30/2021 7:02 Results fo r this COUNT-W/DIFF PM UTILIZATION MANAGEMENT MANAGER procedure are i n the results section. BASIC METABOLIC PANEL Routine 09/30/2021 7:02 Res ults for this PM UTILIZATION MANAGEMENT MANAGER procedure are i n the results section. DIFFERENTIAL Routine 09/30/2021 7:02 Results for this PM UTILIZATION MANAGEMENT MANAGER procedure are i n the results section. FERRITIN Add-On 09/30/2021 7:02 Results for this PM UTILIZATION MANAGEMENT MANAGER procedure are i n the results section. IRON PROFILE Add-On 09/30/2021 7:02 Results for this (IRON,TIBC,%SAT.(CALC)) PM UTILIZATION MANAGEMENT MANAGER proc edure are in the results section. TYPE AND SCREEN STAT 09/30/2021 6:27 Results f or this PM UTILIZATION MANAGEMENT MANAGER procedure are i n the results section. ANTIBODY SCREEN STAT 09/30/2021 6:27 Results f or this PM UTILIZATION MANAGEMENT MANAGER procedure are i n the results section. BLOOD TYPE STAT 09/30/2021 6:27 Results for this PM UTILIZATION MANAGEMENT MANAGER procedure are i n the results section. PATH REVIEW (LAB USE Routine 09/30/2021 6:27 Resu lts for this ONLY) PM UTILIZATION MANAGEMENT MANAGER procedure are i n the results section. APTT (ACTIVATED PARTIAL Routine 09/30/2021 6:27 R esults for this THROMBOPLASTIN TIME PM UTILIZATION MANAGEMENT MANAGER procedur e are in the results section. HEMOGLOBIN, BLOOD STAT 09/30/2021 6:27 Results for this PM UTILIZATION MANAGEMENT MANAGER procedure are i n the results section. INR/PROTIME Routine 09/30/2021 6:27 Results for this PM UTILIZATION MANAGEMENT MANAGER procedure are i n the results section. documented in this encounter Results XR Femur Lt 2 Views (10/02/2021 10:21 AM UTILIZATION MANAGEMENT MANAGER) Anatomical Region Laterality Modality Lower Extremity, Leg, Thigh Computed Rad iography Specimen (Source) Anatomical Collection Method Collection Time Re ceived Time Location / / Volume Laterality 10/02/2021 10:21 AM UTILIZATION MANAGEMENT MANAGER Narrative 10/02/2021 10:37 AM UTILIZATION MANAGEMENT MANAGER EXAM: XR FEMUR LT 2 VIEWS [...] D 25 HYDROXY, TOTAL (10/02/2021 8:22 AM UTILIZATION MANAGEMENT MANAGER) Patholo gist Method Time Signature Vitamin D, 58 30 - 80 10/02/2021 [facility] 25-OH, Total ng/mL 12:54 PM UTILIZATION MANAGEMENT MANAGER [facility] Specimen Anatomical Collection Method / Collection Time Recei shahid Time (Source) Location / Volume Laterality Blood Venipuncture 10/02/2021 8:22 10/02/2021 8 :32 Butterfly / Unknown AM UTILIZATION MANAGEMENT MANAGER AM UTILIZATION MANAGEMENT MANAGER Keyla Gilbert APRN, CNP LAB_1 Performing Organization Address City/[facility]/ZIP Code Phon e Number [facility] [address] [address] TSH (10/02/2021 8:22 AM UTILIZATION MANAGEMENT MANAGER) athologist Signature TSH, Sensitive 0.31 0.30 - 10/02/2021 [facility] 4.50 9:37 AM [facility] uIU/mL Specimen Anatomical Collection Method / Collection Time Recei shahid Time (Source) Location / Volume Laterality Blood Venipuncture 10/02/2021 8:22 10/02/2021 8 :33 Butterfly / Unknown AM UTILIZATION MANAGEMENT MANAGER AM UTILIZATION MANAGEMENT MANAGER Keyla Gilbert APRN, CNP LAB_1 Performing Organization Address City/[facility]/ZIP Code Phon e Number [address] [address] (ABNORMAL) Comp Metabolic Panel (10/02/2021 8:22 AM UTILIZATION MANAGEMENT MANAGER) Analysis Performed At Patho logist Time Signature Sodium 137 136 - 145 10/02/2021 [facility] mmol/L 9:19 AM [facility] Potassium 4.2 3.5 - 5.1 10/02/2021 [facility] mmol/L 9:19 AM [facility] Chloride 108 98 - 109 10/02/2021 [facility] mmol/L 9:19 AM [facility] CO2 23 20 - 29 10/02/2021 [facility] mmol/L 9:19 AM [facility] Anion Gap 6 (L) 7 - 16 10/02/2021 [facility] mmol/L 9:19 AM [facility] Calcium 8.4 8.4 - 10.4 10/02/2021 [facility] mg/dL 9:19 AM [facility] BUN 30 (H) 7 - 26 10/02/2021 [facility] mg/dL 9:19 AM [facility] Creatinine 0.96 0.73 - 10/02/2021 [facility] 1.18 mg/dL 9:19 AM [facility] GFR, Estimated >60 >60 10/02/2021 [facility] mL/min/1.7 9:19 AM [facility] 3m2 Alkaline 42 40 - 150 10/02/2021 [facility] Phosphatase U/L 9:19 AM [facility] AST (SGOT) 12 10 - 40 10/02/2021 [facility] U/L 9:19 AM [facility] ALT (SGPT) 13 0 - 55 U/L 10/02/2021 [facility] 9:19 AM [facility] Bilirubin, Total 0.2 0.2 - 1.2 10/02/2021 [facility] mg/dL 9:19 AM [facility] Protein, Total 5.5 (L) 6.4 - 8.3 10/02/2021 [facility] g/dL 9:19 AM [facility] Albumin 3.1 (L) 3.5 - 5.0 10/02/2021 [facility] g/dL 9:19 AM [facility] Glucose 116 (H) 70 - 100 10/02/2021 [facility] mg/dL 9:19 AM [facility] Comment: The given reference range is fo r the fasting state. Non-fasting reference range for glucose is 70 - 180 mg/dL. Specimen Anatomical Collection Method / Collection Time Recei shahid Time (Source) Location / Volume Laterality Blood Venipuncture 10/02/2021 8:22 10/02/2021 8 :33 Butterfly / Unknown AM UTILIZATION MANAGEMENT MANAGER AM UTILIZATION MANAGEMENT MANAGER Keyla Gilbert [employer]ACLE DATA WAREHOUSE DEVELOPER, CLINICAL REVIEW SPECIALIST LAB_1 Performing Organization Address City/State/ZIP Code Phon e Number [address] [address] (ABNORMAL) Complete Blood Count-No Diff (10/02/2021 8:22 AM UTILIZATION MANAGEMENT MANAGER) Analysis Performed At Patho logist Time Signature WBC 7.5 3.5 - 10.5 10/02/2021 [facility] x10(9)/L 9:19 AM [facility] RBC 2.41 (L) 4.32 - 10/02/2021 [facility] 5.72 9:19 AM [facility] x10(12)/L Hemoglobin 5.6 (LL) 13.5 - 10/02/2021 [facility] 17.5 g/dL 9:19 AM [facility] HCT 19.3 (L) 38.8 - 10/02/2021 [facility] 50.0 % 9:19 AM [facility] MCV 80.1 80.0 - 10/02/2021 [facility] 100.0 fL 9:19 AM [facility] MCH 23.2 (L) 27.6 - 10/02/2021 [facility] 33.3 pg 9:19 AM [facility] MCHC 29.0 (L) 31.5 - 10/02/2021 [facility] 35.2 g/dL 9:19 AM [facility] RDW 17.2 (H) 11.9 - 10/02/2021 [facility] 15.5 % 9:19 AM [facility] Platelets 130 (L) 150 - 450 10/02/2021 [facility] x10(9)/L 9:19 AM [facility] Automated NRBC 0 <=0 /100 10/02/2021 [facility] WBC 9:19 AM [facility] Specimen Anatomical Collection Method / Collection Time Recei shahid Time (Source) Location / Volume Laterality Blood Venipuncture 10/02/2021 8:22 10/02/2021 8 :33 Butterfly / Unknown AM UTILIZATION MANAGEMENT MANAGER AM UTILIZATION MANAGEMENT MANAGER Keyla Gilbert APRN, KORIN LAB_1 Performing Organization Address City/State/ZIP Code Phon e Number [address] [address] Intact PTH (10/02/2021 8:22 AM UTILIZATION MANAGEMENT MANAGER) P athologist Signature Intact PTH 96 10 - 100 10/02/2021 [facility] pg/mL 9:37 AM UTILIZATION MANAGEMENT MANAGER HOSPITAL Specimen Anatomical Collection Method / Collection Time Recei shahid Time (Source) Location / Volume Laterality Blood Venipuncture 10/02/2021 8:22 10/02/2021 8 :33 Butterfly / Unknown AM UTILIZATION MANAGEMENT MANAGER AM UTILIZATION MANAGEMENT MANAGER Keyla Gilbert APRN, CNP LAB_1 Performing Organization Address [facility] Phon e Number [address] [address] Glucose, Whole Blood POCT (10/01/2021 3:00 PM UTILIZATION MANAGEMENT MANAGER) Patholo gist Method Time Signature Glucose, Whole 166 70 - 180 10/01/2021 [facility] Blood mg/dL 3:01 PM UTILIZATION MANAGEMENT MANAGER HOSPITAL POCT Comment 1 MD Notified 10/01/2021 [facility] 3:01 PM UTILIZATION MANAGEMENT MANAGER HOSPITAL Performing RCLAB PACU 10/01/2021 [facility] Location 3:01 PM [facility] Specimen Anatomical Collection Method Collection Time Receive d Time (Source) Location / / Volume Laterality Blood 10/01/2021 3:00 PM 3:01 UTILIZATION MANAGEMENT MANAGER PM UTILIZATION MANAGEMENT MANAGER Martha Gottlieb MD LAB_1 Performing Organization Address [facility] Phon e Number [address] [address] XR C-Arm 3.5-4 Hours (10/01/2021 2:11 PM UTILIZATION MANAGEMENT MANAGER) Anatomical Region Laterality Modality X-Ray Angiography Specimen (Source) Anatomical Location Collection Method / Collectio n Time Received Time / Laterality Volume Narrative 10/01/2021 2:12 PM UTILIZATION MANAGEMENT MANAGER Fluoroscopy provided by a assistant professor of radiology. Exact fluoroscopy time is documented in end of exam information in EPIC Martha Gottlieb MD RAD GD (ABNORMAL) Hemoglobin, Measured POCT (10/01/2021 10:52 AM UTILIZATION MANAGEMENT MANAGER) Analysis Performed At Patho logist Time Signature Hemoglobin 8.5 (L) 13.5 - 10/03/2021 [facility] 17.5 g/dL 7:17 AM UTILIZATION MANAGEMENT MANAGER HOSPITAL Performing RCLAB OR 10/03/2021 [facility] Location 7:17 AM [facility] Specimen Anatomical Collection Method Collection Time Receive d Time (Source) Location / / Volume Laterality Blood 10/01/2021 10:52 10/03/2021 7:17 AM UTILIZATION MANAGEMENT MANAGER AM UTILIZATION MANAGEMENT MANAGER Martha Gottlieb MD LAB_1 Performing Organization Address City/[facility]/ZIP Code Phon e Number [address] [address] Glucose, Whole Blood POCT (10/01/2021 10:48 AM UTILIZATION MANAGEMENT MANAGER) [facility] Method Time Signature Glucose, Whole 103 70 - 180 10/01/2021 [facility] Blood mg/dL 10:50 AM [facility] POCT Comment 1 No Action 10/01/2021 [facility] Required 10:50 AM [facility] Performing RCLAB OR 10/01/2021 [facility] Location 10:50 AM [facility] Specimen Anatomical Collection Method Collection Time Receive d Time (Source) Location / / Volume Laterality Blood 10/01/2021 10:48 10/01/2021 AM UTILIZATION MANAGEMENT MANAGER 10:50 AM UTILIZATION MANAGEMENT MANAGER Martha Gottlieb MD LAB_1 Performing Organization Address [facility]/ZIP Code Phon e Number [address] [address] Glucose, Whole Blood POCT (10/01/2021 9:16 AM UTILIZATION MANAGEMENT MANAGER) [facility] Method Time Signature Glucose, Whole 106 70 - 180 10/01/2021 [facility] Blood mg/dL 9:17 AM [facility] Performing RCLAB SDS 10/01/2021 [facility] Location 9:17 AM [facility] Specimen Anatomical Collection Method Collection Time Receive d Time (Source) Location / / Volume Laterality Blood 10/01/2021 9:16 AM 9:17 UTILIZATION MANAGEMENT MANAGER AM UTILIZATION MANAGEMENT MANAGER Martha Gottlieb MD LAB_1 Performing Organization Address [facility]/ZIP Code Phon e Number [address] [address] Transfuse RBC (10/01/2021 8:38 AM UTILIZATION MANAGEMENT MANAGER) Josep Peck MD ET NURSING BLOOD ADMIN ECG 12-Lead Routine (Lab perform) (10/01/2021 6:20 AM UTILIZATION MANAGEMENT MANAGER) athologist Signature EKG Completed 10/01/2021 [facility] 11:02 AM [facility] Specimen Anatomical Collection Method Collection Time Receive d Time (Source) Location / / Volume Laterality Other Specimen Non-blood 10/01/2021 6:20 AM 022 9:57 Type Collection / UTILIZATION MANAGEMENT MANAGER AM UTILIZATION MANAGEMENT MANAGER Unknown Óscar Lindsay Mendez BROWNE LAB_1 Performing Organization Address [facility]/ZIP [facility] Phon e Number [address] [address] Ecg 12-Lead Routine (MUSE) (10/01/2021 6:14 AM UTILIZATION MANAGEMENT MANAGER) P athologist Signature Ventricular Rate 64 BPM [facility] Atrial Rate 64 BPM [facility] P-R Interval 448 ms [facility] QRS Duration 176 ms [facility] QT 466 ms [facility] QTc 480 ms [facility] R [place] -89 degrees MUSE [facility] T [place] 68 degrees M[facility] Specimen (Source) Anatomical Collection Method Collection Time Re ceived Time Location / / Volume Laterality 10/01/2021 6:14 AM UTILIZATION MANAGEMENT MANAGER Narrative MUSE [facility] - 10/01/2021 2:40 PM UTILIZATION MANAGEMENT MANAGER Atrial-sensed ventricular-paced rhythm with prolonged AV conduction Abnormal ECG No previous ECGs available Confirmed by Pancho Dangelo ([id number]) on 10/01/19 2:40:30 PM Procedure Note Pancho Dangelo MD - 10/01/2021 Atrial-sensed ventricular-paced rhythm w ith prolonged AV conduction Abnormal ECG No previous ECGs available Confirmed by Pancho Dangelo ([id number]) on 10/01/19 2:40:30 PM Óscar Simms DO EKG Performing Organization Address [facility] Phon e Number [facility] [address] [place] [address] IV Insertion, LST Perform (10/01/2021 2:34 AM UTILIZATION MANAGEMENT MANAGER) athologist Signature IV INSERTION, Done 10/01/2021 [facility] LST PERFORM 5:03 AM UTILIZATION MANAGEMENT MANAGER HOSPITAL (LAB) Specimen Anatomical Collection Method / Collection Time Recei shahid Time (Source) Location / Volume Laterality Other Specimen Venipuncture 10/01/2021 2:34 10/01/2021 3:20 Type Butterfly / Unknown AM UTILIZATION MANAGEMENT MANAGER AM UTILIZATION MANAGEMENT MANAGER Josep Peck MD LAB_1 Performing Organization Address [facility]/ZIP [facility] Phon e Number [address] [address] Prep RBC: , 2 Units (09/30/2021 11:01 PM UTILIZATION MANAGEMENT MANAGER) Component Value Ref Test Analysis Performed At [facility] gist Range Method Time Signature BLOOD PRODUCT [id number] [facility] CODE BLOOD BANK BLOOD UNIT NUMBER [id number] [facility] S BLOOD BANK CROSSMATCH Compatible [facility] INTERPRETATION BLOOD BANK BLOOD DISPENSE Transfused [facility] STATUS BLOOD BANK Unit Expiration [facility] Date BLOOD BANK UNIT BT BARCODE 6200 [facility] PRODUCT VOL ML 400 [facility] CODING SYSTEM ISBT [facility] PRODUCT RBC LR [facility] BLOOD PRODUCT [id number] [facility] CODE BLOOD BANK BLOOD UNIT NUMBER [id number] [facility] BLOOD [facility] CROSSMATCH Compatible [facility] [...] / Volume Laterality Blood 09/30/2021 11:01 PM UTILIZATION MANAGEMENT MANAGER Josep Peck MD LAB_BLOOD PRODUCTS Performing Organization Address City/State/ZIP Code Phon e Number [facility] [address] [place] [address] XR Femur Lt 2 Views Lower AP/Lat (09/30/2021 7:32 PM UTILIZATION MANAGEMENT MANAGER) Anatomical Region Laterality Modality Lower Extremity, Leg, Thigh Computed Rad iography Specimen (Source) Anatomical Collection Method Collection Time Re ceived Time Location / / Volume Laterality 09/30/2021 7:32 PM UTILIZATION MANAGEMENT MANAGER Narrative 09/30/2021 7:41 PM UTILIZATION MANAGEMENT MANAGER EXAM: XR FEMUR LT 2 VIEWS LOWER [...] Knee Lt 2 Views (09/30/2021 7:32 PM UTILIZATION MANAGEMENT MANAGER) Anatomical Region Laterality Modality Lower Extremity, Knee Computed Radiograp hy Specimen (Source) Anatomical Collection Method Collection Time Re ceived Time Location / / Volume Laterality 09/30/2021 7:32 PM UTILIZATION MANAGEMENT MANAGER Narrative 09/30/2021 7:38 PM UTILIZATION MANAGEMENT MANAGER EXAM: XR KNEE LT 2 VIEWS LOCATION: [...] W AP/Lat Hip Lt (09/30/2021 7:32 PM UTILIZATION MANAGEMENT MANAGER) Anatomical Region Laterality Modality Pelvis, Hip Computed Radiography Specimen (Source) Anatomical Collection Method Collection Time Re ceived Time Location / / Volume Laterality 09/30/2021 7:32 PM UTILIZATION MANAGEMENT MANAGER Narrative 09/30/2021 7:41 PM UTILIZATION MANAGEMENT MANAGER EXAM: XR PELVIS AP W AP/LAT HIP [...] AP W AP/LAT HIP LT LOCATION: [facility] DATE/TIME: 09/30/2021 7:32 PM INDICATION: [...] RAD GD (ABNORMAL) Ferritin (09/30/2021 7:02 PM UTILIZATION MANAGEMENT MANAGER) athologist Signature Ferritin 13 (L) 22 - 275 09/30/2021 [facility] ng/mL 10:48 PM [facility] Specimen Anatomical Collection Method / Collection Time Recei shahid Time (Source) Location / Volume Laterality Blood Venipuncture / 09/30/2021 7:02 09/30/2021 7:07 Unknown PM UTILIZATION MANAGEMENT MANAGER PM UTILIZATION MANAGEMENT MANAGER Ted Burdick MD LAB_1 Performing Organization Address City/State/ZIP Code Phon e Number [address] [address] (ABNORMAL) Iron Profile (Iron,TIBC,%Sat.(Calc)) (09/30/2021 7:02 PM UTILIZATION MANAGEMENT MANAGER) [facility] Method Time Signature Iron 14 (L) 65 - 175 09/30/2021 [facility] mcg/dL 10:41 PM HOSPITAL UTILIZATION MANAGEMENT MANAGER Transferrin 324 174 - 364 09/30/2021 [facility] mg/dL 10:41 PM [facility] UTILIZATION MANAGEMENT MANAGER TIBC, Calculated 405 240 - 450 09/30/2021 [facility] mcg/dL 10:41 PM HOSPITAL UTILIZATION MANAGEMENT MANAGER % Saturation, 3 (L) 10 - 50 % 09/30/2021 [facility] Calculated 10:41 PM HOSPITAL UTILIZATION MANAGEMENT MANAGER TIBC Low iron, 09/30/2021 [facility] Interpretation normal TIBC, 10:41 PM HOSPITAL possible UTILIZATION MANAGEMENT MANAGER iron deficiency. Specimen Anatomical Collection Method / Collection Time Recei shahid Time (Source) Location / Volume Laterality Blood Venipuncture / 09/30/2021 7:02 09/30/2021 7:07 Unknown PM UTILIZATION MANAGEMENT MANAGER PM UTILIZATION MANAGEMENT MANAGER Ted Burdick MD LAB_1 Performing Organization Address [facility] Phon e Number [address] [address] (ABNORMAL) Differential (09/30/2021 7:02 PM UTILIZATION MANAGEMENT MANAGER) [facility] Method Time Signature Polychromasia Slight (A) None Seen 09/30/2021 [facility] 7:42 PM [facility] RBC Morphology Reviewed 09/30/2021 [facility] 7:42 PM [facility] Platelet Estimate Adequate Adequate 09/30/2021 [facility] 7:42 PM [facility] Neutrophil 7.1 (H) 1.7 - 7.0 09/30/2021 [facility] Absolute 10(9)/L 7:42 PM [facility] Lymphocyte 0.5 (L) 1.0 - 4.8 09/30/2021 [facility] Absolute 10(9)/L 7:42 PM [facility] Monocytes 0.3 0.2 - 0.9 09/30/2021 [facility] Absolute 10(9)/L 7:42 PM [facility] Eosinophil 0.0 0.0 - 0.5 09/30/2021 [facility] Absolute 10(9)/L 7:42 PM [facility] Basophil Absolute 0.1 0.0 - 0.3 09/30/2021 [facility] 10(9)/L 7:42 PM [facility] Specimen Anatomical Collection Method / Collection Time Recei shahid Time (Source) Location / Volume Laterality Blood Venipuncture / 09/30/2021 7:02 09/30/2021 7:07 Unknown PM UTILIZATION MANAGEMENT MANAGER PM UTILIZATION MANAGEMENT MANAGER Jonah Nova MD LAB_1 Performing Organization Address [facility] Phon e Number [address] [address] Blood Type second draw (09/30/2021 7:02 PM UTILIZATION MANAGEMENT MANAGER) P athologist Signature ABO A 09/30/2021 [facility] BLOOD 7:42 PM UTILIZATION MANAGEMENT MANAGER BANK RH Positive 09/30/2021 [facility] BLOOD 7:42 PM UTILIZATION MANAGEMENT MANAGER BANK Specimen Anatomical Collection Method / Collection Time Recei shahid Time (Source) Location / Volume Laterality Blood Venipuncture / 09/30/2021 7:02 09/30/2021 7:07 Unknown PM UTILIZATION MANAGEMENT MANAGER PM UTILIZATION MANAGEMENT MANAGER Eugenia Gupta MD LAB_1 Performing Organization Address City/State/ZIP Code Phon e Number [facility] [address] [place] [address] (ABNORMAL) Complete Blood Count-W/Diff (09/30/2021 7:02 PM UTILIZATION MANAGEMENT MANAGER) Analysis Performed At Patho logist Time Signature WBC 8.0 3.5 - 10.5 09/30/2021 [facility] x10(9)/L 7:42 PM [facility] RBC 2.68 (L) 4.32 - 09/30/2021 [facility] 5.72 7:42 PM [facility] x10(12)/L Hemoglobin 6.0 (LL) 13.5 - 09/30/2021 [facility] 17.5 g/dL 7:42 PM [facility] HCT 20.8 (L) 38.8 - 09/30/2021 [facility] 50.0 % 7:42 PM [facility] MCV 77.6 (L) 80.0 - 09/30/2021 [facility] 100.0 fL 7:42 PM [facility] MCH 22.4 (L) 27.6 - 09/30/2021 [facility] 33.3 pg 7:42 PM [facility] MCHC 28.8 (L) 31.5 - 09/30/2021 [facility] 35.2 g/dL 7:42 PM [facility] RDW 17.5 (H) 11.9 - 09/30/2021 [facility] 15.5 % 7:42 PM [facility] Platelets 151 150 - 450 09/30/2021 [facility] x10(9)/L 7:42 PM [facility] Automated NRBC 0 <=0 /100 09/30/2021 [facility] WBC 7:42 PM [facility] Specimen Anatomical Collection Method / Collection Time Recei shahid Time (Source) Location / Volume Laterality Blood Venipuncture / 09/30/2021 7:02 09/30/2021 7:07 Unknown PM UTILIZATION MANAGEMENT MANAGER PM UTILIZATION MANAGEMENT MANAGER Jonah Nova MD LAB_1 Performing Organization Address [facility]/ZIP [facility] Phon e Number [address] [address] (ABNORMAL) Basic Metabolic Panel (09/30/2021 7:02 PM UTILIZATION MANAGEMENT MANAGER) P athologist Signature Sodium 136 136 - 145 09/30/2021 [facility] mmol/L 7:46 PM [facility] Potassium 4.0 3.5 - 5.1 09/30/2021 [facility] mmol/L 7:46 PM [facility] Chloride 104 98 - 109 09/30/2021 [facility] mmol/L 7:46 PM [facility] CO2 24 20 - 29 09/30/2021 [facility] mmol/L 7:46 PM [facility] Anion Gap 8 7 - 16 09/30/2021 [facility] mmol/L 7:46 PM [facility] Calcium 8.4 8.4 - 10.4 09/30/2021 [facility] mg/dL 7:46 PM [facility] BUN 26 7 - 26 09/30/2021 [facility] mg/dL 7:46 PM [facility] Creatinine 0.78 0.73 - 09/30/2021 [facility] 1.18 mg/dL 7:46 PM [facility] GFR, Estimated >60 >60 09/30/2021 [facility] mL/min/1.7 7:46 PM [facility] 3m2 Glucose 152 (H) 70 - 100 09/30/2021 [facility] mg/dL 7:46 PM [facility] Comment: The given reference range is fo r the fasting state. Non-fasting reference range for glucose is 70 - 180 mg/dL. Specimen Anatomical Collection Method / Collection Time Recei shahid Time (Source) Location / Volume Laterality Blood Venipuncture / 09/30/2021 7:02 09/30/2021 7:07 Unknown PM UTILIZATION MANAGEMENT MANAGER PM UTILIZATION MANAGEMENT MANAGER Jonah Nova MD LAB_1 Performing Organization Address [facility] Phon e Number [address] [address] Blood Smear Review (Lab Use Only) (09/30/2021 6:27 PM UTILIZATION MANAGEMENT MANAGER) Patholo gist Method Time Signature Path Review Special heme 10/01/2021 [facility] tech 11:24 AM [facility] performed slide review Path Review Hgb low 10/01/2021 [facility] Reason 11:24 AM [facility] Specimen Anatomical Collection Method / Collection Time Recei shahid Time (Source) Location / Volume Laterality Blood Venipuncture / 09/30/2021 6:27 09/30/2021 6:47 Unknown PM UTILIZATION MANAGEMENT MANAGER PM UTILIZATION MANAGEMENT MANAGER Jonah Nova MD LAB_1 Performing Organization Address [facility]/ZIP [facility] Phon e Number [address] [address] (ABNORMAL) Hemoglobin, Blood (09/30/2021 6:27 PM UTILIZATION MANAGEMENT MANAGER) athologist Signature Hemoglobin 5.8 (LL) 13.5 - 17.5 09/30/2021 [facility] g/dL 7:12 PM [facility] Specimen Anatomical Collection Method / Collection Time Recei shahid Time (Source) Location / Volume Laterality Blood Venipuncture / 09/30/2021 6:27 09/30/2021 6:47 Unknown PM UTILIZATION MANAGEMENT MANAGER PM UTILIZATION MANAGEMENT MANAGER Jonah Nova MD LAB_1 Performing Organization Address [facility] Phon e Number [address] [address] INR/Protime (09/30/2021 6:27 PM UTILIZATION MANAGEMENT MANAGER) athologist Signature Protime 13.6 11.8 - 14.6 09/30/2021 [facility] Seconds 7:03 PM [facility] INR 1.1 0.9 - 1.1 09/30/2021 [facility] 7:03 PM [facility] Specimen Anatomical Collection Method / Collection Time Recei shahid Time (Source) Location / Volume Laterality Blood Venipuncture / 09/30/2021 6:27 09/30/2021 6:47 Unknown PM UTILIZATION MANAGEMENT MANAGER PM UTILIZATION MANAGEMENT MANAGER [facility] - 09/30/2021 7:03 PM CS T Therapeutic range determined by protocol established by anticoagulation provider. Jonah Nova MD LAB_1 Performing Organization Address [facility] Phon e Number [address] [address] APTT (Activated Partial Thromboplastin Time) (09/30/2021 6:27 PM UTILIZATION MANAGEMENT MANAGER) P athologist Signature APTT 31.7 22.5 - 36.5 09/30/2021 [facility] Seconds 7:03 PM UTILIZATION MANAGEMENT MANAGER HOSPITAL Specimen Anatomical Collection Method / Collection Time Recei shahid Time (Source) Location / Volume Laterality Blood Venipuncture / 09/30/2021 6:27 09/30/2021 6:47 Unknown PM UTILIZATION MANAGEMENT MANAGER PM UTILIZATION MANAGEMENT MANAGER Jonah Nova MD LAB_1 Performing Organization Address [facility] Phon e Number [address] [address] Antibody Screen (09/30/2021 6:27 PM UTILIZATION MANAGEMENT MANAGER) [facility] gist Method Time Signature Antibody Screen Negative 09/30/2021 [facility] BLOOD Interpretation 7:35 PM UTILIZATION MANAGEMENT MANAGER BANK Specimen Anatomical Collection Method / Collection Time Recei shahid Time (Source) Location / Volume Laterality Blood Venipuncture / 09/30/2021 6:27 09/30/2021 6:46 Unknown PM UTILIZATION MANAGEMENT MANAGER PM UTILIZATION MANAGEMENT MANAGER Jonah Nova MD LAB_1 Performing Organization Address [facility] Phon e Number [facility] [address] [place] [address] Blood Type (09/30/2021 6:27 PM UTILIZATION MANAGEMENT MANAGER) P athologist Signature ABO A 09/30/2021 [facility] BLOOD 7:23 PM UTILIZATION MANAGEMENT MANAGER BANK RH Positive 09/30/2021 [facility] BLOOD 7:23 PM UTILIZATION MANAGEMENT MANAGER BANK Specimen Anatomical Collection Method / Collection Time Recei shahid Time (Source) Location / Volume Laterality Blood Venipuncture / 09/30/2021 6:27 09/30/2021 6:46 Unknown PM UTILIZATION MANAGEMENT MANAGER PM UTILIZATION MANAGEMENT MANAGER Jonah Nova MD LAB_1 Performing Organization Address [facility] Phon e Number [facility] [address] [place] [address] documented in this encounter Visit Diagnoses Diagnosis [...] not set up. Will try again later IZATION MANAGEMENT MANAGER Plan of Care - Brenda Bar RN - 10/03/2021 3:24 PM CST [facility] Discharge Note - Nursing Admission Date/Time: 09/30/2021 5:33 PM Attending MD: Martha Gottlieb MD Patient discharged: to Home. 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 Transported by: Wheelchair Valuables were [...] stored: Yes --- End of Report --- IZATION MANAGEMENT MANAGER Plan of Care - Afshan Guajardo RN - 10/03/2021 3:09 PM CST I completed a full assessment and assessments as ordered and per policy on this patient during my work shift. Reassessments completed during my work shift are unchanged unless documented. IZATION MANAGEMENT MANAGER Plan of Care - Dilcia Barr RN [...] to shower in basement) Contacts: Emergency Contacts State Attorney (Rel.) Home Phone Work Phone Mobile Phone Magali Luna (Spouse) [phone] -- -- Decline,Pt 03/23/2018 -- -- -- [...] Additional Comments: Case discussed in care rounds. [employer] was notified that patient needing assistance with transportation home. I met with patient, he is needing a wheelchair ride home today. His will be home when he arrives but she is unable to drive. He has a ramp to enter the home and has [employer] PMAP. Ride re quested and obtained for [id number]. PT recommending outpatient PT, pt prefers to go to [facility] for outpatient PT. Paged ortho merchandising internship and obtained order which I printed and gave to the patient and instructed him to call [facility] and they will want him to bring printed order to appt. Dilcia Barr RN IZATION MANAGEMENT MANAGER Plan of Care - Linda Longo RN - 10/03/2021 7:28 AM CST I completed a full assessment and assessments as ordered and per policy on this patient during my work shift. Reassessments completed during my work shift are unchanged unless documented. IZATION MANAGEMENT MANAGER Plan of Care - Brenda Bar RN [...] my work shift are unchanged unless documented. IZATION MANAGEMENT MANAGER Plan of Care - Kera Reeder RN - 10/02/2021 2:58 PM CST I completed a full assessment and assessments as ordered on this patient during my work shift. Reassessments completed during my work shift are unchanged unless documented. IZATION MANAGEMENT MANAGER Plan of Care - Sommer Lowery RN [...] unless documented. --- End of Report --- IZATION MANAGEMENT MANAGER Plan of Care - Brenda Bar RN [...] willing to answer and let RN do. IZATION MANAGEMENT MANAGER Plan of Care - Josep Cervantes MD [...] to the [facility]. Josep Cervantes MD Orthopaedic Surgery, PGY-2 Pager: [phone] IZATION MANAGEMENT MANAGER Plan of Care - Brenda Bar RN - 10/01/2021 5:06 PM CST [facility]. Practitioner Notified Note Name of Practitioner notified: Ortho consult Time of Practitioner notification: 5:08 PM Reason: [address] [id number], Pt stating he will leave hospital without coming to floor. Not situationcan, security aware. Response: Ortho team coming up to talk to pt with security at bedside. Will notify pt at that time that is unable to come to floor. IZATION MANAGEMENT MANAGER Plan of Care - Estephania Mejia RN [...] unless documented. --- End of Report --- IZATION MANAGEMENT MANAGER Plan of Care - Ladan Najera RN - 10/01/2021 10:08 AM CST [facility]. Practitioner Notified Note Name of Practitioner notified: Dr Gottlieb Time of Practitioner notification: 10:08 AM Reason: Luna, Ed: Can you come back to patient in STCU 2? Patient refusing blood products and needs to sign on consent. Thanks. Response: Will come see patient IZATION MANAGEMENT MANAGER Plan of Care - Estephania Mejia RN - 10/01/2021 9:04 AM CST [facility] Nursing Pre-Op Note Admission Date/Time: 09/30/2021 5:33 PM Time of transport to the Operating Room: 903 Transported by: Litter/cart Pre-Op checklist complete?: yes IZATION MANAGEMENT MANAGER Plan of Care - Diana Early RN [...] two providers. Concerned about heather communicable diseases. Leaf Size Picker stated this may delay his surgery. Patient states that he was being forced to get blood. Leaf Size Picker explained the safety concerns of low hemoglobin and surgery. Patient stated he did not want to talk about it anymore. Aboutan hour later patient stated that he would take the blood under protest. Leaf Size Picker clarified that this meant he was consenting. Patient confirmed. Started transfusion of 2 units. I completed a full assessment and assessments as ordered and per policy on this patient during my work shift. Reassessments completed during my work shift are unchanged unless documented. --- End of Report --- IZATION MANAGEMENT MANAGER Plan of Care - Josep Cervantes MD [...] and that this country is ???going to [facility]?? . I recognized that thepatient has [...] health. He suggested that this felt like [facility]. He repeatedly statedthat the only circumstances under which he would be willing to receive blood is if I personally drafted a statement or letter that would allow him to yudi me personally, his nurse, and [facility] if he received any sort of blood borne illness from a transfusion. I explained that [facility] does not have such statements. Ultimately, [...] Josep Cervantes MD Orthopaedic Surgery, PGY-2 Pager: [phone] IZATION MANAGEMENT MANAGER Triage Assessment Note - Yari Adams RN - 09/30/2021 5:35 PM UTILIZATION MANAGEMENT MANAGER Patient [facility] by [facility] Hospital with chief complaint: Femur fracture Symptoms/background (EMS narrative): Pt. Was at home and slipped on the ice and fell on the left knee. CMS intact. Leg was splinted at [facility]. Has been given dilaudid for pain. Interventions/abnormal vitals: VSS. 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 IZATION MANAGEMENT MANAGER documented in this encounter Admitting Diagnoses Diagnosis [...] chewable tablet Given 10/03/2021 9:32 A M UTILIZATION MANAGEMENT MANAGER 1,000 mg 500-1,000 mg 500-1,000 mg, Oral, QID PRN, Heartburn, Dyspepsia, Starting on Thu09/30/21 at 2142, Until Ruth 10/03/21 at 1754, Each tablet provides 200 mg elemental calcium Given 10/02/2021 7:13 PM UTILIZATION MANAGEMENT MANAGER 1,000 mg Given 10/02/2021 2:30 PM UTILIZATION MANAGEMENT MANAGER 1,000 mg dextrose (D50) injection 25 g [...] injection 25-50 mcg Given 10/01/2021 3:35 PM UTILIZATION MANAGEMENT MANAGER 25 mcg 25-50 mcg, Intravenous, [id number], Pain, Starting on Thu10/01/21 at 1412, Until [...] medications., PACU (only) Given 10/01/2021 3:20 PM UTILIZATION MANAGEMENT MANAGER 50 mcg Given 10/01/2021 3:12 PM UTILIZATION MANAGEMENT MANAGER 25 mcg fentaNYL (SUBLIMAZE) injection 50 mcg Given 09/30/2021 6:19 PM UTILIZATION MANAGEMENT MANAGER 50 mcg 50 mcg, Intravenous, ONCE, On [...] injection 15 mg Given 09/30/2021 10:34 PM UTILIZATION MANAGEMENT MANAGER 15 mg 15 mg, Intravenous, Q6H PRN, Pain, Starting on Thu09/30/21 at 2142, Until Ruth 10/03/21 at 1508, For 8 doses, Hold all NSAIDS if SBP less than 100 mmHg. lactated ringers infusion Started 10/01/2021 1:51 PM UTILIZATION MANAGEMENT MANAGER Intravenous, at 30 mL/hr, CONTINUOUS, Starting on Thu10/01/21 at 0845, If IV started. Continuous., Pre-op Restarted 10/01/2021 1:03 PM UTILIZATION MANAGEMENT MANAGER Restarted 10/01/2021 10:17 AM UTILIZATION MANAGEMENT MANAGER methocarbamol (ROBAXIN) tablet 500 mg Given 09/30/2021 10:35 PM UTILIZATION MANAGEMENT MANAGER 500 mg 500 mg, Oral, Q6H PRN, [...] immediate release tablet Given 10/03/2021 2:44 PM UTILIZATION MANAGEMENT MANAGER 5 mg 5-10 mg 5-10 mg, Oral, Q4H PRN, Pain, Starting on Thu09/30/21 at 2142, Until Ruth 10/03/21 at 1754, Give PO opioid if able to take PO and pain not well controlled with other medications or interventions. Given 10/03/2021 9:32 AM UTILIZATION MANAGEMENT MANAGER 10 mg Given 10/02/2021 11:09 AM UTILIZATION MANAGEMENT MANAGER 5 mg polyethylene glycol (MIRALAX) oral powde [...] chloride 0.9% infusion Started 09/30/2021 11:31 PM UTILIZATION MANAGEMENT MANAGER 125 mL/hr Intravenous, at 125 mL/hr, CONTINUOUS, Starting on Thu09/30/21 at 2200 documented in this encounter Active and Recently Administered Medications Times are shown in UTILIZATION MANAGEMENT MANAGER. Scheduled Medication Order 10/01/2021 10/02/2021 10/03/2021 acetaminophen [...] 1036 (Given - Provider: Pooja Simmons APRN, CONTRACT FORESTER) 1,000 mg, Intravenous, ONCE, On 10/01 at [...] mcg (CANCELED) 15 12 (Given - Provider: Aniak Lazo RN)1520 (Given - Provider: Anika Lazo RN)1535 (Given - Provider: Anika Lazo RN) 25-50 mcg, Intravenous, [id number], Pain, Starting on Thu10/01/21 at 1412, Until [...] Nausea/Vomiting. documented in this encounter Care Teams Customer Security Clerk Relationship Specialty Start Date End Date Kevin Bullock MD PCP - General Family Practice 09/30/21 documented as of this encounter
--- OUTSIDE RECORDS SUMMARY | 2022-08-19 10:47 | XMS_ITS | Encounter Summary ---
:1960 Author Organization [facility] Address [address] [place] [address] Care Team Providers Name Role Phone Cintia Cobb MD Primary Care Provider [phone] Encounter Details Date Type Department Care Team Description 11/19/2021 Notes/Orders [facility] Cesar Champagne, [address] [place], [place] [address] [phone] [address] [place] [address] (Gavi rk) Social History Tobacco [...] Description 09/15/2022 Appointment Orthopedics Delgado Gottlieb MD [address] [place] [phone] (Gavi rk) 10/08/2022 Appointment Orthopedics Delgado Gottlieb MD [address] [place] [phone] (Wo rk) 05/27/2023 Appointment Chemo Therapy/Infusion Services documented as of this encounter Visit Diagnoses Not on filedocumented in this encounter Care Teams Transfer Car Operator Drier Relationship Specialty Start Date End Date Cintia Cobb MD PCP - General Family Practice 09/30/21 documented as of this encounter
--- OUTSIDE RECORDS SUMMARY | 2022-08-19 10:47 | XMS_ITS | Encounter Summary ---
:1960 Author Organization [email or web address] Address [address], [place] [address] Care Team Providers Name Role Phone Cintia Cobb MD Primary Care Provider [phone] Reason for Visit Auth/Cert Specialty Diagnoses / [...] Expiration Date Visits Requ ested Visits Authorized [id number] 1 1 Encounter Details Date Type Department Care Team Description 10/01/2021 Ancillary Procedure [facility] [address] [place] [address] Social History Tobacco Use Types Packs/Day Years [...] 09/15/2022 Appointment Orthopedics Delgado Gottlieb MD [address] [place] [phone] (Gavi presley) 10/08/2022 Appointment Orthopedics Delgado Gottlieb MD [address] [place], [place] [address] (Gavi presley) 05/27/2023 Appointment Chemo Therapy/Infusion Services documented as of this encounter Procedures Procedure Name Priority Date/Time Associated Diagnosis Comme nts XR C-ARM 3.5-4 Routine 10/01/2021 2:11 PM Results for this HOURS HOME COMPANION procedure are i n the results section. documented in this encounter Results XR C-Arm 3.5-4 Hours (10/01/2021 2:11 PM HOME COMPANION) Anatomical Region Laterality Modality X-Ray Angiography Specimen (Source) Anatomical Location Collection Method / Collectio n Time Received Time / Laterality Volume Narrative 10/01/2021 2:12 PM HOME COMPANION Fluoroscopy provided by a radiology interventional physician. Exact fluoroscopy time is documented in end of exam information in EPIC Delgado Gottlieb MD RAD GD documented in this encounter Visit Diagnoses Not on filedocumented in this encounter Care Teams Licensed Massage Practitioner Relationship Specialty Start Date End Date Cintia Cbob MD PCP - General Family Practice 09/30/21 documented as of this encounter
--- OUTSIDE RECORDS SUMMARY | 2022-08-19 10:47 | XMS_ITS | Encounter Summary ---
:1960 Author Organization [facility] Address [address] [place] [address] Care Team Providers Name Role Phone Cintia Cobb MD Primary Care Provider [phone] Encounter Details Date Type Department Care Team Description 10/16/2021 Lab Visit [facility] [address] Low bone density Laboratory [address] [place] [address]. [place] [address] Social History Tobacco Use Types [...] 09/15/2022 Appointment Orthopedics Delgado Gottlieb MD [address] [place], [place] [phone] (Gavi presley) 10/08/2022 Appointment Orthopedics Delgado Gottlieb MD [address] [place], [place] [address] (Gavi presley) 05/27/2023 Appointment Chemo Therapy/Infusion Services documented as of this encounter Procedures Procedure Name Priority Date/Time Associated Comments Diagnosis CBC AND DIFFERENTIAL Routine 10/16/2021 11:39 Low bone density Results for this PANEL AM SLOT FLOOR PERSON procedure are i n the results section. VITAMIN D 25-HYDROXY, Routine 10/16/2021 11:39 Low bone densit y Results for this TOTAL AM SLOT FLOOR PERSON procedure are i n the results section. INTACT PTH Routine 10/16/2021 11:39 Low bone density Results for this AM SLOT FLOOR PERSON procedure are i n the results section. COMPLETE BLOOD Routine 10/16/2021 11:39 Low bone density Resul ts for this COUNT-W/DIFF AM SLOT FLOOR PERSON procedure are i n the results section. COMP METABOLIC PANEL Routine 10/16/2021 11:39 Low bone density Results for this AM SLOT FLOOR PERSON procedure are i n the results section. TSH, SENSITIVE Routine 10/16/2021 11:39 Low bone density Resul ts for this AM SLOT FLOOR PERSON procedure are i n the results section. documented in this encounter Results (ABNORMAL) Complete Blood Count-W/Diff (10/16/2021 11:39 AM SLOT FLOOR PERSON) Analysis Performed At Patho logist Time Signature WBC 8.3 3.5 - 10.5 10/16/2021 [facility] x10(9)/L 2:52 PM [facility] RBC 2.49 (L) 4.32 - 10/16/2021 [facility] 5.72 2:52 PM [facility] x10(12)/L Hemoglobin 5.9 (LL) 13.5 - 10/16/2021 [facility] 17.5 g/dL 2:52 PM [facility] HCT 21.7 (L) 38.8 - 10/16/2021 [facility] 50.0 % 2:52 PM [facility] MCV 87.1 80.0 - 10/16/2021 [facility] 100.0 fL 2:52 PM [facility] MCH 23.7 (L) 27.6 - 10/16/2021 [facility] 33.3 pg 2:52 PM [facility] MCHC 27.2 (L) 31.5 - 10/16/2021 [facility] 35.2 g/dL 2:52 PM [facility] RDW 20.4 (H) 11.9 - 10/16/2021 [facility] 15.5 % 2:52 PM [facility] Platelets 305 150 - 450 10/16/2021 [facility] x10(9)/L 2:52 PM [facility] Automated NRBC 0 <=0 /100 10/16/2021 [facility] WBC 2:52 PM [facility] Neutrophil 6.8 1.7 - 7.0 10/16/2021 [facility] Absolute 10(9)/L 2:52 PM [facility] Lymphocyte 0.9 (L) 1.0 - 4.8 10/16/2021 [facility] Absolute 10(9)/L 2:52 PM [facility] Monocytes 0.5 0.2 - 0.9 10/16/2021 [facility] Absolute 10(9)/L 2:52 PM [facility] Eosinophil 0.1 0.0 - 0.5 10/16/2021 [facility] Absolute 10(9)/L 2:52 PM [facility] Basophil 0.0 0.0 - 0.3 10/16/2021 [facility] Absolute 10(9)/L 2:52 PM [facility] Immature Gran % 1.0 (H) 0.0 - 0.5 10/16/2021 [facility] % 2:52 PM [facility] Specimen Anatomical Collection Method / Collection Time Recei shahid Time (Source) Location / Volume Laterality Blood Venipuncture / 10/16/2021 11:39 2 Unknown AM SLOT FLOOR PERSON 11:39 AM SLOT FLOOR PERSON Delgado Gottlieb MD LAB_1 Performing Organization Address City/State/ZIP Code Phon e Number [address] [address] VITAMIN D 25-HYDROXY, TOTAL (V77.99) (10/16/2021 11:39 AM SLOT FLOOR PERSON) [facility] Method Time Signature Vitamin D, 69 30 - 80 10/16/2021 [facility] 25-OH, Total ng/mL 3:06 PM [facility] FLOOR PERSON [facility] Specimen Anatomical Collection Method / Collection Time Recei shahid Time (Source) Location / Volume Laterality Blood Venipuncture / 10/16/2021 11:39 2 Unknown AM SLOT FLOOR PERSON 11:39 AM SLOT FLOOR PERSON Delgado Gottlieb MD LAB_1 Performing Organization Address City/State/ZIP Code Phon e Number [facility] [address] [address] TSH, SENSITIVE (10/16/2021 11:39 AM SLOT FLOOR PERSON) [facility] Method Time Signature TSH, Sensitive 1.10 0.30 - 10/16/2021 [facility] 4.50 3:10 PM [facility] FLO[facility] PERSON [facility] uIU/mL Specimen Anatomical Collection Method / Collection Time Recei shahid Time (Source) Location / Volume Laterality Blood Venipuncture / 10/16/2021 11:39 2 Unknown AM SLOT FLOOR PERSON 11:39 AM SLOT FLOOR PERSON Delgado Gottlieb MD LAB_1 Performing Organization Address City/[facility]/ZIP Code Phon e Number [facility] [address] [address] (ABNORMAL) Intact PTH (10/16/2021 11:39 AM SLOT FLOOR PERSON) athologist Signature Intact PTH 107 (H) 10 - 100 10/16/2021 [facility] pg/mL 2:37 PM [facility] Specimen Anatomical Collection Method / Collection Time Recei shahid Time (Source) Location / Volume Laterality Blood Venipuncture / 10/16/2021 11:39 2 Unknown AM SLOT FLOOR PERSON 11:39 AM SLOT FLOOR PERSON Delgado Gottlieb MD LAB_1 Performing Organization Address City/State/ZIP Code Phon e Number [address] [address] (ABNORMAL) Comp Metabolic Panel (10/16/2021 11:39 AM SLOT FLOOR PERSON) [facility] Method Time Signature Sodium 138 136 - 145 10/16/2021 [facility] mmol/L 2:58 PM SLOT FLOOR PERSON CEN[facility]AL [facility] Potassium 4.7 3.5 - 5.1 10/16/2021 [facility] mmol/L 2:58 PM [facility] PERSON [facility] Chloride 107 98 - 109 10/16/2021 [facility] mmol/L 2:58 PM [facility] P[facility] CO2 21 20 - 29 10/16/2021 [facility] mmol/L 2:58 PM [facility] P[facility] Anion Gap 10 7 - 16 10/16/2021 [facility] mmol/L 2:58 PM [facility]LO[facility] PERSON [facility] Calcium 9.0 8.4 - 10/16/2021 [facility] 10.4 2:58 PM [facility]OT FLOOR PERSON C[facility]AL [facility] mg/dL BUN 26 7 - 26 10/16/2021 [facility] mg/dL 2:58 PM SLOT FLOOR PERSON [facility] Creatinine 1.08 0.73 - 10/16/2021 [facility] 1.18 2:58 PM SLOT FLOOR PERSON CEN[facility]AL [facility] mg/dL GFR, Estimated >60 >60 10/16/2021 [facility] mL/min/1. 2:58 PM SLOT FLOOR PERSON C[facility]AL [facility] 73m2 Alkaline 79 40 - 150 10/16/2021 [facility] Phosphatase U/L 2:58 PM SLOT FLOOR PERSON [facility] AST (SGOT) 12 10 - 40 10/16/2021 [facility] U/L 2:58 PM [facility] FLO[facility] PERSON [facility] ALT (SGPT) 11 0 - 55 10/16/2021 [facility] U/L 2:58 PM [facility] FLOOR PERSON [facility] Bilirubin, 0.5 0.2 - 1.2 10/16/2021 [facility] Total mg/dL 2:58 PM SLOT FLOOR PERSON C[facility]AL [facility] Protein, Total 6.1 (L) 6.4 - 8.3 10/16/2021 [facility] g/dL 2:58 PM SLOT FLOOR PERSON C[facility]AL [facility] Albumin 3.4 (L) 3.5 - 5.0 10/16/2021 [facility] g/dL 2:58 PM SLOT FLOOR PERSON CEN[facility]AL LAB Glucose 110 (H) 70 - 100 10/16/2021 [facility] mg/dL 2:58 PM SLOT FLOOR PERSON [facility]AL [facility] Comment: The given reference range is fo r the fasting state. Non-fasting reference range for glucose is 70 - 180 mg/dL. Hours Fasting 4 10/16/2021 2:58 PM SLOT FLOOR PERSON [facility] 435 LABORATORY Specimen Anatomical Collection Method / Collection Time Recei shahid Time (Source) Location / Volume Laterality Blood Venipuncture / 10/16/2021 11:39 2 Unknown AM SLOT FLOOR PERSON 11:39 AM SLOT FLOOR PERSON Delgado Gottlieb MD LAB_1 Performing Organization Address City/State/ZIP Code Phon e Number [facility] [address] LABORATORY documented in this encounter Visit Diagnoses Diagnosis Low bone density documented in this encounter Care Teams Engineer And Geologist Relationship Specialty Start Date End Date Cintia Cobb MD PCP - General Family Practice 09/30/21 documented as of this encounter
--- OUTSIDE RECORDS SUMMARY | 2022-08-19 10:47 | XMS_ITS | Encounter Summary ---
:1960 Author Organization [facility] Address [address] [place] [address] Care Team Providers Name Role Phone Cintia Cobb MD Primary Care Provider [phone] Reason for Referral Therapies (Routine) - New Request Specialty Diagnoses / Procedures Referred By Contact Refer red To Contact Diagnoses Closed fracture of distal end of left femur with routine healing, unspecified fracture morphology, subsequent encounter Delgado Gottlieb MD [address] [place] [address] Referral ID Status Reason Start Date Expiration Date Visits V isits Requested Authorized [id number] New Request 11/27/2021 11/27/2022 1 1 Scheduling [...] Procedures XR Femur Lt 2 Views [address] [place] [address] Referral ID Status Reason Start Date Expiration Date Visits V isits Requested Authorized [id number] Incomplete 11/27/2021 02/26/2023 1 1 WARE ENGINEERING SUPERVISOR Reason for Visit Reason Comments POST-OP,EXAM Encounter Details Date Type Department Care Team Description 11/27/2021 Office Visit Specialty Center Delgado Gottlieb, Domenica sed fracture of [address] [facility] MD distal end of left [address] [place] [address] [place], [place] healing, unspecified [phone] fracture morphology, subsequent enco unter (Work) (Primary [...] 10:20 AM [facility] ORTHOPAEDICS DEPARTMENT PHONE NUMBER: [phone] Reason for today's visit: POST-OP,EXAM Treatment plan: [...] APPT NOTES ( ) [facility]: [address] [place] [address] ( ) [facility]: [address] [place], [place] ( ) Other: S/p ORIF/IMN supracondylar distal femur fx, DOS: 10/01/2021 ( ) [facility]: [address] [place] [address] ( ) [facility] [address] [employer] [address] [place], [place] ( ) Other: If you have any questions about your visit, your symptoms, your medication, your test results or it is not clear what your diagnosis or treatment plan is please contact us at [phone] or send us a secure message via [employer]. You may receive a survey in the mail regarding your visit today. Your feedback is very important to us, please take a moment to complete the survey which is completely anonymous. If you would like to speak to someone specifically, you may contact the clinic at [phone] and your call will be directed to someone on our leadership team. Thank you for choosing Delgado Gottlieb MD and [facility]. Did you know, you can now reach us for appointment scheduling seven days a week, 365 days a year from 7am to 9pm? Just call our main number, , listen to the prompts and you will be connected to a appeals representative who can assist you with your [...] he is makingprogress. He does PT at [facility]. He uses the recumbent bicycle and the [...] had a lot of swelling. 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 Delgado Gottlieb MD Reinforced Ironworker [facility] Department of Orthopaedic Surgery [facility] documented in this encounter Plan of Treatment Upcoming Encounters Date Type Specialty Care Team Description 09/15/2022 Appointment Orthopedics Delgado Gottlieb MD [address] [place] [phone] (Gavi presley) 10/08/2022 Appointment Orthopedics Delgado Gottlieb MD [address] [place] [phone] (Gavi presley) 05/27/2023 Appointment Chemo Therapy/Infusion Services Scheduled Referrals Name Type Priority Associated Diagnoses Order S chedule PT - PHYSICAL THERAPY Referral Routine Closed fracture of distal Ordered: 11/27/2021 [[id number]] end of left femur with routine healing, [...] EXAM: XR FEMUR LT 2 VIEWS LOCATION: [place] [address] DATE/TIME: 11/27/2021 9:59 AM INDICATION: Open reduction internal fixa tion of left supracondylar distal femur fracture COMPARISON: 10/16/2021 IMPRESSION: ORIF of the left femur. No n ew hardware complication. Incomplete healing of a distal left femur fracture. Procedure Note Sebas [place] MD - 11/27/2021Formatti ng of this note might be different from the original. EXAM: XR FEMUR LT 2 VIEWS LOCATION: [facility] 435 DATE/TIME: 11/27/2021 9:59 AM [...] r documented in this encounter Care Teams Barrel Rifler Broach Relationship Specialty Start Date End Date Cintia Cobb MD PCP - General Family Practice 09/30/21 documented as of this encounter
--- OUTSIDE RECORDS SUMMARY | 2022-08-19 10:48 | XMS_ITS | Encounter Summary ---
:1960 Author Organization [employer] Address [address] [place] [address] Care Team Providers Name Role Phone Cintia Cobb MD Primary Care Provider [phone] Encounter Details Date Type Department Care Team Description 09/23/2021 Notes/Orders [facility] Cesar Champagne, Acute pain [address] [place], [place] [address] [address] [address] [place] [address] (Gavi presley) Social History Tobacco [...] 09/15/2022 Appointment Orthopedics Delgado Gottlieb MD [address] [place] [phone] (Gavi rk) 10/08/2022 Appointment Orthopedics Delgado Gottlieb MD [address] [place] [phone] (Wo rk) 05/27/2023 Appointment Chemo Therapy/Infusion Services documented as of this encounter Visit Diagnoses Diagnosis Acute pain documented in this encounter Care Teams Internal Affairs Commander Relationship Specialty Start Date End Date Cintia Cobb MD PCP - General Family Practice 09/30/21 documented as of this encounter
--- OUTSIDE RECORDS SUMMARY | 2022-08-19 10:48 | XMS_ITS | Encounter Summary ---
:1960 Author Organization [facility] Address [address] [place] [address] Care Team Providers Name Role Phone Cintia Cobb MD Primary Care Provider [phone] Reason for Visit Reason Comments Consult, New Patient Encounter Details Date Type Department Care Team Description 09/30/2021 Telephone Specialty Center [facility] , Consult, New Patient Orthopedics Clinic Provider [address] [place] [address] Social History Tobacco Use Types Packs/Day Years [...] 3:53 PM CST Yimi HOGAN, calling from [facility] in [place]. Looking for treatment advice. Believes patient needs surgery. -Left Distal Femur Fracture, DOI: 09/30/21, ~7 am Discussed with Leta Daigle and Niyah Cintron. Advised to have [facility] call [facility] at [phone], and also have them push imaging to [facility]. Called Yimi back and notified him of this. Verbal order per Provider [facility]. Mandy Galindo LPN TLE BUGGY OPERATOR documented in this encounter Plan of Treatment Upcoming Encounters Date Type Specialty Care Team Description 09/15/2022 Appointment Orthopedics Delgado Gottlieb MD [address] [place], [place] [address] (Wo rk) 10/08/2022 Appointment Orthopedics Delgado Gottlieb MD [address] [place], [place] [address] (Wo rk) 05/27/2023 Appointment Chemo Therapy/Infusion Services documented as of this encounter Visit Diagnoses Not on filedocumented in this encounter Care Teams Project Officer Relationship Specialty Start Date End Date Cintia Cobb MD PCP - General Family Practice 09/30/21 documented as of this encounter
--- OUTSIDE RECORDS SUMMARY | 2022-08-19 10:48 | XMS_ITS | Encounter Summary ---
:1960 Author Organization [facility] Address [address] [place] [address] Care Team Providers Name Role Phone Ladan Song MD Primary Care Provider Unavailable Reason for Visit Reason Comments Other Scheduled ILESI Encounter Details Date Type Department Care Team Description 06/06/2021 Telephone [facility] Juan Miguel Buckley MD Other (Scheduled [facility]I [address] [facility] ) [place], [place] [address] [place], [place] [phone] (Wo rk) Social History Tobacco Use Types [...] scheduled 06-26-21, reiterated our policy regardingrequirement for pickup driver home after injection and NPO two [...] our visits. Ed says his [facility] does not require this nor did his myelogram so why should he for this. Ed also says he will not need a pickup driver for his ILESI on 06/26/21 and [...] 09/15/2022 Appointment Orthopedics Delgado Gottlieb MD [address] [place], [place] [address] (Gavi presley) 10/08/2022 Appointment Orthopedics Delgado Gottlieb MD [address] [place], [place] [address] (Gavi presley) 05/27/2023 Appointment Chemo Therapy/Infusion Services documented as of this encounter Visit Diagnoses Not on filedocumented in this encounter Care Teams Manufacturing Clerk Relationship Specialty Start Date End Date Ladan Song MD PCP - General Internal Medicine 08/18/17 09/29/21 documented as of this encounter
--- OUTSIDE RECORDS SUMMARY | 2022-08-19 10:48 | XMS_ITS | Encounter Summary ---
:1960 Author Organization [facility] Address [address] [place] [address] Care Team Providers Name Role Phone Ladan Song MD Primary Care Provider Unavailable Reason for Visit Reason Comments QUESTIONS, GENERAL Encounter Details Date Type Department Care Team Description 03/27/2021 Telephone [facility] Cesar Champagne, QUESTIONS, GENERAL [address] [facility] [place], [place] [address] [address] [phone] [place] [phone] (Wo rk) Social History Tobacco Use [...] stated he had a CT myelogram at [facility] yesterday. Patient scheduled for follow-up Future Appointments Provider Department Center 04/19/2021 3:00 PM Freddy Delgado PA-C [facility] Patient continues to have low back [...] you been seen for this recently?: N/A [Fitting Room Checker/Appt Center: If yes, please include date and provider.] Is it okay to leave detailed message on your voicemail? No Pt. doesn't have voicemail. Try calling him back if he didn't answer. [Fitting Room Checker/Appt Center: If this call is after 3 p.m., communicate to patient: If we are not able to get back to you by the end of the day and your symptoms worsen please contact the Careline] documented in this encounter Plan of Treatment Upcoming Encounters Date Type Specialty Care Team Description 09/15/2022 Appointment Orthopedics Delgado Gottlieb MD [address] [place] [phone] (Gavi presley) 10/08/2022 Appointment Orthopedics Delgado Gottlieb MD [address] [place], [place] [address] (Gavi presley) 05/27/2023 Appointment Chemo Therapy/Infusion Services documented as of this encounter Visit Diagnoses Not on filedocumented in this encounter Care Teams Dancer Or Choreographer Relationship Specialty Start Date End Date Ladan Song MD PCP - General Internal Medicine 08/18/17 09/29/21 documented as of this encounter
--- OUTSIDE RECORDS SUMMARY | 2022-08-19 10:48 | XMS_ITS | Encounter Summary ---
:1960 Author Organization [facility] Address [address], [place] [address] Care Team Providers Name Role Phone Cintia Cobb MD Primary Care Provider [phone] Reason for Visit Auth/Cert Specialty Diagnoses / [...] Expiration Date Visits Requ ested Visits Authorized [id number] 1 1 Encounter Details Date Type Department Care Team Description 10/01/2021 Anesthesia Event RH Operating Room Yasmany Lewis MBBS [address] [place] [address] [place], [place] [address]German MD [address] [place] [address] [place] [address] Anesthesia Record Procedure Summary Procedure Name Responsible [...] Electr onically signed by Pooja Whitlock APRN, HOME IMPROVEMENT CONTRACTOR 1449 An Stop Care transferred . Name [...] Pooja Noonan, Pooja Noonan, Time: 1024; Placed FAMILY AND CONSUMER SCIENCES PROFESSOR, HOME IMPROVEMENT CONTRACTOR FAMILY AND CONSUMER SCIENCES PROFESSOR, HOME IMPROVEMENT CONTRACTOR By: HOME IMPROVEMENT CONTRACTOR; Induction Type: Pre-O2, IV; Masking: Easy; ETT [...] Kelley DO - 10/01/2021 4:30 PM CST [facility] Anesthesia Post-op Note Patient: Ed J [...] by: Jonah Kelley DO 10/01/2021 4:30 PM ON OPERATOR Anesthesia Preprocedure Evaluation - German Henry MD - 10/01/2021 10:02 AM CST [facility] Anesthesia Pre-op Evaluation Procedure: OPEN REDUCTION INTERNAL [...] QT 466 ms QTc 480 ms R [place] -89 degrees T [place] 68 degrees Physical Exam: BP (!) 140/83 [...] by: German Henry MD 10/01/2021 10:02 AM ON OPERATOR documented in this encounter Plan of Treatment Upcoming Encounters Date Type Specialty Care Team Description 09/15/2022 Appointment Orthopedics Delgado Gottlieb MD [address] [place], [place] [address] (Gavi presley) 10/08/2022 Appointment Orthopedics Delgado Gottlieb MD [address] [place], [place] [address] (Gavi presley) 05/27/2023 Appointment Chemo Therapy/Infusion Services documented as of this encounter Visit Diagnoses Not on filedocumented in this encounter Administered Medications Inactive Administered Medications - up to 3 most recent administrations Medication Order MAR Action Action Date Dose Rate Site albumin human Given 10/01/2021 12:51 PM SIPHON OPERATOR 250 mL (ALBUMINAR,ALBUTEIN) 5 % infusion Intravenous, Starting on Thu10/01/21 at 1251, Until Thu10/01/21 at 1449 ceFAZolin in sodium chloride 0.9% (ANCEF) IVPB Given 0 10/01/2021 10:31 AM SIPHON OPERATOR 2 g 2 g 2 g, Intravenous, Administer over 30 Minutes, ONCE (NON-SCHEDULED), Starting on Thu10/01/21 at 0828, For 1 dose, For patient weight less than or equal to 119 kg PRE-OP, Pre-op dexamethasone (DECADRON) injection Given 10/01/2021 10:37 AM SIPHON OPERATOR 4 mg Intravenous, Starting on Thu10/01/21 at 1037, Until Thu10/01/21 at 1449 dexmedetomidine 20 mcg/5 mL injection Given 10/01/2021 2:20 PM SIPHON OPERATOR 8 mcg Intravenous, Starting on Thu10/01/21 at 1420, Until Thu10/01/21 at 1449 ePHEDrine 5 mg/mL injection Given 10/01/2021 1:38 PM SIPHON OPERATOR 5 mg Intravenous, Starting on Thu10/01/21 at 1159, Until Thu10/01/21 at 1449 Given 10/01/2021 12:16 PM SIPHON OPERATOR 5 mg Given 10/01/2021 11:59 AM SIPHON OPERATOR 5 mg fentaNYL (SUBLIMAZE) injection Given 10/01/2021 2:19 PM SIPHON OPERATOR 0.5 mL Intravenous, Starting on Thu10/01/21 at 1017, Until Thu10/01/21 at 1449 Given 10/01/2021 2:17 PM SIPHON OPERATOR 0.5 mL Given 10/01/2021 11:17 AM SIPHON OPERATOR 1 mL lactated ringers infusion Started 10/01/2021 1:51 PM SIPHON OPERATOR Intravenous, at 30 mL/hr, CONTINUOUS, Starting on Thu10/01/21 at 0845, If IV started. Continuous., Pre-op Restarted 10/01/2021 1:03 PM SIPHON OPERATOR Restarted 10/01/2021 10:17 AM SIPHON OPERATOR lidocaine PF (XYLOCAINE) 1 % injection Given 10/01/2021 10:23 AM SIPHON OPERATOR 50 mg Intravenous, Starting on Thu10/01/21 at 1023 midazolam (VERSED) injection Given 10/01/2021 10:17 AM SIPHON OPERATOR 2 mg Intravenous, Starting on Thu10/01/21 at 1017, Until Thu10/01/21 at 1449 ondansetron (ZOFRAN) injection Given 10/01/2021 1:56 PM SIPHON OPERATOR 4 mg Intravenous, Starting on Thu10/01/21 at 1356, Until Thu10/01/21 at 1449 phenylephrine-NaCl 0.9% (KANA-SYNEPHRINE) Given 10/01/2021 1:38 P M SIPHON OPERATOR 100 mcg injection Intravenous, Starting on Thu10/01/21 at 1033, Until Thu10/01/21 at 1449 Given 10/01/2021 1:27 PM SIPHON OPERATOR 100 mcg Given 10/01/2021 1:14 PM SIPHON OPERATOR 100 mcg propofol (aka diPRIvan) injection Given 10/01/2021 10:23 AM SIPHON OPERATOR 100 mg Intravenous, Starting on Thu10/01/21 at 1023 rocuronium (ZEMURON) injection Given 10/01/2021 1:50 PM SIPHON OPERATOR 10 mg Intravenous, Starting on Thu10/01/21 at 1029, Until Thu10/01/21 at 1449 Given 10/01/2021 1:17 PM SIPHON OPERATOR 20 mg Given 10/01/2021 12:33 PM SIPHON OPERATOR 20 mg succinylcholine (QUELICIN) injection Given 10/01/2021 10:23 AM SIPHON OPERATOR 80 mg Intravenous, Starting on Thu10/01/21 at 1023, Until Thu10/01/21 at 1449 sugammadex (BRIDION) injection Given 10/01/2021 2:35 PM SIPHON OPERATOR 200 mg Intravenous, Starting on Thu10/01/21 at 1435, Until Thu10/01/21 at 1449 tranexamic acid (CYKLOKAPRON) 1000 mg in Given 10/01/2021 10 :36 AM SIPHON OPERATOR 1,000 mg sodium chloride 0.9% (10 mg/mL) 100 mL IVPB premix 1,000 mg, Intravenous, ONCE, On Thu10/01/21 at 0900, For 1 dose, Administer once at incision and once at start of closure., Pre-op tranexamic acid (CYKLOKAPRON) 1000 mg in Given 10/01/2021 1:59 P M SIPHON OPERATOR 1,000 mg sodium chloride 0.9% (10 mg/mL) 100 mL IVPB premix 1,000 mg, Intravenous, ONCE, On Thu10/01/21 at 0900, For 1 dose, Administer once at incision and once at start of closure., Pre-op documented in this encounter Care Teams Inspector Open Die Relationship Specialty Start Date End Date Cintia Cobb MD PCP - General Family Practice 09/30/21 documented as of this encounter
--- OUTSIDE RECORDS SUMMARY | 2022-08-19 10:48 | XMS_ITS | Encounter Summary ---
:1960 Author Organization [facility] Address [address] [address] Care Team Providers Name Role Phone Cintia Cobb MD Primary Care Provider [phone] Reason for Visit Auth/Cert Specialty Diagnoses / [...] Expiration Date Visits Requ ested Visits Authorized [id number] 1 1 Encounter Details Date Type Department Care Team Description 09/30/2021 Ancillary Procedure [facility] [address] [place] [address] Social History Tobacco Use Types Packs/Day Years [...] 09/15/2022 Appointment Orthopedics Delgado Gottlieb MD [address] [place] [phone] (Wo rk) 10/08/2022 Appointment Orthopedics Delgado Gottlieb MD [address] [place], [place] [address] (Gavi rk) 05/27/2023 Appointment Chemo Therapy/Infusion Services documented as of this encounter Procedures Procedure Name Priority Date/Time Associated Diagnosis Comme nts XR FEMUR LT 2 VIEWS STAT 09/30/2021 7:32 PM Re sults for this LOWER AP/LAT VOLLEYBALL REFEREE procedure are i n the results section. XR KNEE LT 2 VIEWS STAT 09/30/2021 7:32 PM Res ults for this VOLLEYBALL REFEREE procedure are i n the results section. XR PELVIS AP W STAT 09/30/2021 7:32 PM Results for this AP/LAT HIP LT VOLLEYBALL REFEREE procedure are in the results section. documented in this encounter Results XR Femur Lt 2 Views Lower AP/Lat (09/30/2021 7:32 PM VOLLEYBALL REFEREE) Anatomical Region Laterality Modality Lower Extremity, Leg, Thigh Computed Rad iography Specimen (Source) Anatomical Collection Method Collection Time Re ceived Time Location / / Volume Laterality 09/30/2021 7:32 PM VOLLEYBALL REFEREE Narrative 09/30/2021 7:41 PM VOLLEYBALL REFEREE EXAM: XR FEMUR LT 2 VIEWS LOWER AP/LAT LOCATION: [facility] DATE/TIME: 09/30/2021 7:32 PM [...] FEMUR LT 2 VIEWS LOWER AP/LAT LOCATION: [facility] DATE/TIME: 09/30/2021 7:32 PM [...] Knee Lt 2 Views (09/30/2021 7:32 PM VOLLEYBALL REFEREE) Anatomical Region Laterality Modality Lower Extremity, Knee Computed Radiograp hy Specimen (Source) Anatomical Collection Method Collection Time Re ceived Time Location / / Volume Laterality 09/30/2021 7:32 PM VOLLEYBALL REFEREE Narrative 09/30/2021 7:38 PM VOLLEYBALL REFEREE EXAM: XR KNEE LT 2 VIEWS LOCATION: [...] W AP/Lat Hip Lt (09/30/2021 7:32 PM VOLLEYBALL REFEREE) Anatomical Region Laterality Modality Pelvis, Hip Computed Radiography Specimen (Source) Anatomical Collection Method Collection Time Re ceived Time Location / / Volume Laterality 09/30/2021 7:32 PM VOLLEYBALL REFEREE Narrative 09/30/2021 7:41 PM VOLLEYBALL REFEREE EXAM: XR PELVIS AP W AP/LAT HIP [...] PELVIS AP W AP/LAT HIP LT LOCATION: [facility] DATE/TIME: 09/30/2021 7:32 PM [...] on filedocumented in this encounter Care Teams Criminal Justice Lawyer Relationship Specialty Start Date End Date Cintia Cobb MD PCP - General Family Practice 09/30/21 documented as of this encounter
--- OUTSIDE RECORDS SUMMARY | 2022-08-19 10:48 | XMS_ITS | Encounter Summary ---
:1960 Author Organization [facility] Address [address] [place] [address] Care Team Providers Name Role Phone Ladan Song MD Primary Care Provider Unavailable Reason for Visit Reason Comments CANCEL APPOINTMENT 04/19 due to provider emergen cy Encounter Details Date Type Department Care Team Description 04/19/2021 Telephone [facility] Freddy Delgado, [facility] (04/19 due to provider [address] [facility] emergency) [place], [place] [address] [place], [place] [phone] (Wo rk) Social History Tobacco Use Types [...] and trouble getting in contact with this song writer after missed calls from [facility]. Spoke [...] next day Dr. Scherer is back at [facility]. Lesli Motley - 04/19/2021 1:49 PM CDT [...] for a 7 0 am.Please call at [phone] Future Appointments Date Time Provider Department Center 05/17/2021 3:00 PM Freddy Delgado PA-C [facility] Lesli Motley - 04/19/2021 11:17 AM CDT Received an urgent message from Didier Delgado PA-C that he has to leave [facility] as he has a family emergency. [...] 09/15/2022 Appointment Orthopedics Delgado Gottlieb MD [address] [place] [phone] (Gavi presley) 10/08/2022 Appointment Orthopedics Delgado Gottlieb MD [address] [place] [phone] (Gavi presley) 05/27/2023 Appointment Chemo Therapy/Infusion Services documented as of this encounter Visit Diagnoses Not on filedocumented in this encounter Care Teams Retail Cosmetics Sales Counter Manager Relationship Specialty Start Date End Date Ladan Song MD PCP - General Internal Medicine 08/18/17 09/29/21 documented as of this encounter
--- OUTSIDE RECORDS SUMMARY | 2022-08-19 10:48 | XMS_ITS | Encounter Summary ---
:1960 Author Organization [facility] Address [address] [place] [address] Care Team Providers Name Role Phone Ladan Song MD Primary Care Provider Unavailable Reason for Visit Reason Comments Surgery Questions Schedule Surgery Encounter Details Date Type Department Care Team Description 07/24/2021 Telephone [facility] Cesar Champagne Surgery Questions [address] [facility] MD Terri (Schedule Surgery) [place], [place] [address] [address] [phone] [place] [phone] Social History Tobacco Use Types Packs/Day [...] order and spine information sent to the [facility] for insurance approval and surgery scheduling. Once [facility] obtains approval from insurance they will contact the patient directly to schedule surgery. [facility]urance Specialist ([facility]): Jackie [phone] Prior Authorization: [facility] Prior Auth Dept: [facility] [id number] Please note some authorizations can take up to 1-3 weeks depending on your insurance and the surgical procedure that was ordered. RICT MANAGER MAJOR ACCOUNTS SALES Lesli Motley - 07/24/2021 10:52 AM CST Will need to obtain surgical surgery order/request and then submit for insurance approval before surgery can be booked. Didier, since Dr. Scherer is not in until 08/13 to complete, is this something youcan complete at your next clinic you are here at [facility]? RICT MANAGER MAJOR ACCOUNTS SALES Davin Diggs - 07/24/2021 10:40 AM CST Has the patient recently had surgery or an injury? No How may we help you today? Pt would like a call back from AA Describe your symptoms/concerns: Pt is wanting to schedule his surgery. Please call to advise, When did the issue start: NA Have you been seen for this recently?: NA [Hot Pond Operator/Appt Center: If yes, please include date and provider.] Is it okay to leave detailed message on your voicemail? No, he don't have VM, so keep trying till you get him. [Hot Pond Operator/Appt Center: If this call is after 3 p.m., communicate to patient: If we are not able to get back to you by the end of the day and your symptoms worsen please contact the Careline] RICT MANAGER MAJOR ACCOUNTS SALES documented in this encounter Plan of Treatment Upcoming Encounters Date Type Specialty Care Team Description 09/15/2022 Appointment Orthopedics Delgado Gottlieb MD [address] [place] [phone] (Wo rk) 10/08/2022 Appointment Orthopedics Delgado Gottlieb MD [address] [place] [phone] (Wo rk) 05/27/2023 Appointment Chemo Therapy/Infusion Services documented as of this encounter Visit Diagnoses Not on filedocumented in this encounter Care Teams Heel Seat Sander Relationship Specialty Start Date End Date Ladan Song MD PCP - General Internal Medicine 08/18/17 09/29/21 documented as of this encounter
--- OUTSIDE RECORDS SUMMARY | 2022-08-19 10:48 | XMS_ITS | Encounter Summary ---
:1960 Author Organization [email or web address] Address [address], [place] [address] Care Team Providers Name Role Phone Ladan Song MD Primary Care Provider Unavailable Reason for Visit Reason Comments Pre-procedure Call Encounter Details Date Type Department Care Team Description 06/20/2021 Telephone [facility] Rebecca Leiva RN Pre-procedure Call [address] [place], [place] [address] Social History Tobacco Use Types [...] 09/15/2022 Appointment Orthopedics Delgado Gottlieb MD [address] [place], [place] [address] (Gavi presley) 10/08/2022 Appointment Orthopedics Delgado Gottlieb MD [address] [place] [phone] (Gavi presley) 05/27/2023 Appointment Chemo Therapy/Infusion Services documented as of this encounter Visit Diagnoses Not on filedocumented in this encounter Care Teams Auto Air Conditioning Apprentice Relationship Specialty Start Date End Date Ladan Song MD PCP - General Internal Medicine 08/18/17 09/29/21 documented as of this encounter
--- OUTSIDE RECORDS SUMMARY | 2022-08-19 10:48 | XMS_ITS | Encounter Summary ---
:1960 Author Organization [facility] Address [address] [place] [address] Care Team Providers Name Role Phone Cintia Cobb MD Primary Care Provider [phone] Encounter Details Date Type Department Care Team Description 09/30/2021 Partner ED HIM DEPARTMENT Provider, Aguilar hernandez MD [facility] 09/30/20[address] [place] [address] Social History Tobacco Use Types Packs/Day Years [...] 09/15/2022 Appointment Orthopedics Delgado Gottlieb MD [address] [place], [place] [address] (Gavi presley) 10/08/2022 Appointment Orthopedics Delgado Gotltieb MD [address] [place], [place] [address] (Gavi presley) 05/27/2023 Appointment Chemo Therapy/Infusion Services documented as of this encounter Visit Diagnoses Not on filedocumented in this encounter Care Teams Outsole Splicer Relationship Specialty Start Date End Date Cintia Cobb MD PCP - General Family Practice 09/30/21 documented as of this encounter
--- OUTSIDE RECORDS SUMMARY | 2022-08-19 10:48 | XMS_ITS | Encounter Summary ---
:1960 Author Organization [facility] Address [address] [place] [address] Care Team Providers Name Role Phone Cintia Cobb MD Primary Care Provider [phone] Encounter Details Date Type Department Care Team Description 09/30/2021 Orders Only HIM DEPARTMENT Provider, Aguilar hernandez [place] [address] Social History Tobacco Use Types Packs/Day Years [...] 09/15/2022 Appointment Orthopedics Delgado Gottlieb MD [address] [place], [place] [address] (Gavi presley) 10/08/2022 Appointment Orthopedics Delgado Gottlieb MD [address] [facility] [place] [address] (Gavi presley) 05/27/2023 Appointment [...] filedocumented in this encounter Care Teams Manager Android Relationship Specialty Start Date End Date Cintia Cobb MD PCP - General Family Practice 09/30/21 documented as of this encounter
--- OUTSIDE RECORDS SUMMARY | 2022-08-19 10:48 | XMS_ITS | Encounter Summary ---
:1960 Author Organization [facility] Address [address] [place] [address] Care Team Providers Name Role Phone Ladan Song MD Primary Care Provider Unavailable Reason for Visit Reason Comments QUESTIONS, GENERAL Surgery scheduling Encounter Details Date Type Department Care Team Description 07/29/2021 Telephone [facility] Cesar Champagne QUESTIONS, GENERAL [address] [facility] MD Terri (Surgery scheduling) [place] [id number] [phone] [phone] [place] [phone] Social History Tobacco Use Types Packs/Day [...] surgery at may further discuss with his farm technician Jackie as well (phone number left in ). URES EDITOR Mandy Hinojosa - 07/29/2021 4:08 PM CST Use home number on file, it is his 's. His number doesn't have voicemail but hers does. URES EDITOR Mandy Hinojosa - 07/29/2021 4:05 PM CST Patient was calling to talk about surgery scheduling. Flatlock Sewing Machine Operator let him know order was being sent for authorization and that a architect marine would be reaching out to him (see messages below). He wouldlike to have surgery done in [place] or somewhere close. Please reach out to patient to give him an update. URES EDITOR documented in this encounter Plan of Treatment Upcoming Encounters Date Type Specialty Care Team Description 09/15/2022 Appointment Orthopedics Delgado Gottlieb MD [address] [place] [phone] (Gavi presley) 10/08/2022 Appointment Orthopedics Delgado Gottlieb MD [address] [place] [phone] (Gavi presley) 05/27/2023 Appointment Chemo Therapy/Infusion Services documented as of this encounter Visit Diagnoses Not on filedocumented in this encounter Care Teams Orthopedic Physician Assistant Relationship Specialty Start Date End Date Ladan Song MD PCP - General Internal Medicine 08/18/17 09/29/21 documented as of this encounter
--- OUTSIDE RECORDS SUMMARY | 2022-08-19 10:48 | XMS_ITS | Encounter Summary ---
:1960 Author Organization [facility] Address [address] [place] [address] Care Team Providers Name Role Phone Ladan Song MD Primary Care Provider Unavailable Reason for Referral Procedure/Equipment (Routine) - Closed Specialty Diagnoses / Referred By Contact Referred To Contact Procedures Interventional Pain Mgmt Diagnoses Osteoarthritis of spine with radiculopathy, lumbar region ([facility]) Everardo Scherer [facility] Procedures FL C Arm 20 Pain Management MD [address] [facility] [address] [facility] [address] [place], [place] Phone: [phone] Referral ID Status Reason Start Date Expiration Date Visits Requ ested Visits Authorized [id number] Closed 05/14/2021 08/13/2022 1 1 Reason for Visit Reason Comments Follow Up Ct Results lumbar Encounter Details Date Type Department Care Team Description 05/14/2021 Office Visit YOU Scherer Osteoarthri tis of spine [facility] Everardo Murray MD with radiculopathy, [address] [facility] [address] lumbar region (Primary [place], [place] [address] [address] [address] Dx) [phone] [place] [address] Social History Tobacco Use Types [...] 12:00 AM CDT NAME: LAZ LUNA CSN: [id number] CLINIC NOTE DATE OF SERVICE: 05/14/2021 : [...] questions or concerns. EVERARDO SCHERER MD JDS/AQS /[id number] documented in this encounter Plan of Treatment Upcoming Encounters Date Type Specialty Care Team Description 09/15/2022 Appointment Orthopedics Delgado Gottlieb MD [address] [place] [phone] (Wo rk) 10/08/2022 Appointment Orthopedics Delgado Gottlieb MD [address] [place], [place] [phone] (Wo rk) 05/27/2023 Appointment [...] ([facility]) documented in this encounter Care Teams Twisting Operator Relationship Specialty Start Date End Date Ladan Song MD PCP - General Internal Medicine 08/18/17 09/29/21 documented as of this encounter
--- OUTSIDE RECORDS SUMMARY | 2022-08-19 10:48 | XMS_ITS | Encounter Summary ---
:1960 Author Organization [facility] Address [address] [place] [address] Care Team Providers Name Role Phone Ldaan Song MD Primary Care Provider Unavailable Reason for Visit Reason Comments Symptoms Encounter Details Date Type Department Care Team Description 09/09/2021 Telephone [facility] Cesar Champagne MD Symptoms [address] [facility] [address] [place], [place] [address] [place], [place] [phone] (Wo rk) Social History Tobacco Use [...] to also reach out to Jackie at [facility] as well. Symptoms were also discussed. NA SUBSPECIALIST Mehreen Bolton, RN - 09/09/2021 11:26 AM CST Called pt to review symptoms. No answer. LVM to call back to [facility] for any questions related to symptoms or repeat injection. If wanted to schedule surgery call [facility] - see number listed below. NA SUBSPECIALIST Lesli Motley - 09/09/2021 9:10 AM CST Yaerlis at [facility] asked for a nurse to call this patient regarding his symptoms. Symptoms are getting worse, he is falling and legs are buckling. [facility] does have insurance approval to book surgery and if he is ready to book he can call Jackie at [phone]. NA SUBSPECIALIST documented in this encounter Plan of Treatment Upcoming Encounters Date Type Specialty Care Team Description 09/15/2022 Appointment Orthopedics Delgado Gottlieb MD [address] [place], [place] [address] (Gavi presley) 10/08/2022 Appointment Orthopedics Delgado Gottlieb MD [address] [place], [place] [address] (Gavi presley) 05/27/2023 Appointment Chemo Therapy/Infusion Services documented as of this encounter Visit Diagnoses Not on filedocumented in this encounter Care Teams Radiology Tech Relationship Specialty Start Date End Date Ladan Song MD PCP - General Internal Medicine 08/18/17 09/29/21 documented as of this encounter
--- OUTSIDE RECORDS SUMMARY | 2022-08-19 10:48 | XMS_ITS | Encounter Summary ---
:1960 Author Organization [employer] Address [address], [place] [address] Care Team Providers Name Role Phone Kevin Cobb MD Primary Care Provider [phone] Reason for Visit Reason Comments FRACTURE Auth/Cert [...] Expiration Date Visits Requ ested Visits Authorized [id number] 1 1 Encounter Details Date Type Department Care Team Description 10/01/2021 Surgery Operating Room Martha Gottlieb, OPEN REDUCTION INTERNAL [address] John [place] [address] DISTAL FEMUR FRACTURE [phone] [place], [place] [id number] Social History Tobacco Use Types Packs/Day Years [...] Comments Blood Pressure 98/45 10/01/2021 4:10 PM PATCH SETTER Pulse 66 10/01/2021 4:10 PM PATCH SETTER Temperature 36.9 ??C (98.4 ??F) 10/01/2021 4:10 PM PATCH SETTER Respiratory Rate 12 10/01/2021 4:10 PM PATCH SETTER Oxygen Saturation 100% 10/01/2021 4:10 PM PATCH SETTER Inhaled Oxygen Concentration - - Weight 82.5 kg (181 lb 14.4 oz) 10/01/2021 2:00 AM PATCH SETTER Height - - Body Mass Index 24.67 10/01/2021 2:00 AM PATCH SETTER documented in this encounter Discharge Summaries Suzie Daigle PA-C - 10/02/2021 8:50 AM CST [facility] Orthopedic Discharge Note Patient Name: Noemí [...] Date: 10/16/2021 Time: 10:20a Provider: Dr. Gottlieb [facility]: Orthopaedic & Sports Medicine; ( FAMILY OF CARE REFERRAL) [phone]; [address] [place] [address] References: Specialty Connection Sari Aneesh Consult Page Question: Reason for visit? Answer: s/p ORIF IMN L femur Discharge Practitioner Electronic Signature Comments: Suzie Daigle PA-C 10/02/2021 8:43 AM These orders have been electronically signed. (In accordance with Philipp Fed. Regulation Set, Fed A0232 - Types of Authentication) Weight bearing as tolerated Comments: You may resume normal weight bearing on the affected limb(s) as tolerated. Discharge Diet (see comments) Comments: Diabetic Follow Up: The patient will follow up with Martha Gottlieb MD in 2 weeks. At follow up, xrays should include L femur. This note completed by: Suzie Daigle PA-C H SETTER documented in this encounter Discharge Instructions Discharge InstructionsAisha Workman RN - 10/03/2021 8:15 AM CST Clinic Phone Numbers ??? [facility] Orthopaedic Clinic: [phone] ??? [facility] Orthopaedic Center: [phone] Labs and Warfarin (Coumadin) Information No data found. This information has been sent to the following clinic:{COUMADIN FAX DESTINATION:[id number]} [facility] ??? Always wash your hands [...] density, or have had a fracture, call [phone] to schedule an appointment. H SETTER documented in this encounter Medications at Time [...] Thompson MD - 10/03/2021 5:27 AM CST [facility] Orthopedic Surgery Progress Note Subjective: Patient [...] Edward Thompson MD Orthopedic Surgery, PGY-2 Pager: [phone] H SETTER Kay Mcadams PA-Kalia - 10/02/2021 2:52 PM [...] Vera MD - 10/02/2021 5:07 AM CST [facility] Orthopedic Surgery Progress Note Subjective: Last [...] evaluated the patient. Nathen Burger MD, PGY-1 [facility] Orthopedic Surgery Pager: [phone] 10/02/2021 5:07 AM H SETTER Anika Lazo RN - 10/01/2021 4:21 PM CST I completed a full assessment and assessments as ordered and per policy on this patient during my work shift. Reassessments completed during my work shift are unchanged unless documented. H SETTER Kay Mcadams PA-C - 10/01/2021 4:00 PM CST Brief HM Note Unable to see patient today as he has been in the OR. Recommend repeat Hgb and consideration of IV iron if pt agreeable. Medicine will f/u tomorrow. Kay Mcadams PA-C Department of Hospital Medicine Josep Anderson MD - 10/01/2021 5:40 AM CST [facility] Orthopedic Surgery Progress Note Subjective: Patient [...] days. F/U: TBD Josep Cervantes MD, PGY-2 [facility] Orthopedic Surgery Pager: [phone] 10/01/2021 5:41 AM H SETTER documented in this encounter Procedure Notes Suzie Daigle PA-C - 10/01/2021 2:04 PM CST [facility] Brief Operative Progress Note Surgery Date: 10/01/2021 [...] left femur x-rays needed. Suzie Daigle PA-C H SETTER Martha Gottlieb MD - 10/01/2021 12:00 AM CST NAME: NOEMÍ LUNA CSN: [id number] OPERATIVE REPORT DATE OF SURGERY: 10/01/2021 : [...] after the injury. He was brought to [facility] emergency department, where he was found to have a comminuted and displaced left supracondylar distal femur fracture. This was a closed injury, and he was neurovascularly intact. Of note, the patient had sustained an ipsilateral left intertrochanteric femur fracture in August of 2019for which he underwent short intramedullary nailing in [place], [place]. Prior to this most recent injury, the patient was ambulatory with a cane. 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 The IT band laterally was closed with #1 Vicryl eykyhc-gr-qyxut sutures. All skin incisions were then closed with 2-0 Vicryl buried deepdermal sutures and chapis. A sterile compressive dressing was then applied and finally the leg was wrapped in a double length 6-inch Carmita wrap. The patient was transferred back to his hospital bed, andthe Munoz catheter was removed. He was awoken from anesthesia without incident and taken to the [facility] room in stable condition. COMPLICATIONS: None. [...] of the procedure. MARTHA GOTTLIEB MD RDW/AQS /[id number] H SETTER documented in this encounter Consult Notes Jaja Amor PA-C - 10/02/2021 10:40 AM CSTAssociated Order(s): ENDOCRINE CONSULT See consult note 10/01. Will continue to follow peripherally x24 hours. Glucose remains stable. 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 Keyla Gilbert APRN, STEAM GENERATING POWERPLANT MECHANIC H SETTER Ted Burdick MD - 09/30/2021 9:29 PM CST [facility] Pre-operative Exam Patient Name: Noemí Luna [...] Didn't lose consciousness. Didn't hit head. 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 Worried that he will lose [...] surgery on 10/01/[address] Peck at [facility]. Pre-operative Screening Questions: Tightening or pressure [...] Procedure: ESOPHAGOGASTRODUODENOSCOPY; Surgeon: Rene Carlson M.D.; Location: [facility] GI LAB?? Medical devices from this surgery are in the Medical Devices section.?? CARDIAC PACEMAKER PLACEMENT ? OPEN REDUCTION INTERNAL FIXATION FEMUR 08/13/2019 Hip/Left Procedure: OPEN REDUCTION INTERNAL FIXATION LEFT FEMUR; Surgeon: John Norman M.D.; Location: [facility] OR?? Medical devices from this surgery [...] CC: consult --- End of Report --- H SETTER Martha Gottlieb MD - 09/30/2021 6:15 PM [...] obstruction who presentsas a transfer from the [facility] ED with left distal thigh pain after [...] femur fracture by Dr. John Norman in [place], [place]. Location: Left distal thigh Time of Onset: today Severity: 04/16 Quality: sharp Radiation: none Exacerbating: movement, WB Alleviating: rest Associated symptoms: none Patient has been NPO since 1999 on 09/29/21. Patient lives with his and dog. Patient ambulates with a cane. 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 If there is no reply, if it is a weekend, or if it is after hours, then please page the orthopedic surgery service pager at [phone] Attestation: I saw and evaluated this patient and we have discussed the plan of care with the resident. I have personally reviewed the patient's imaging and laboratory data. I agree with the findings as detailed inthe resident's note. Martha Gottlieb MD After School Caregiver [facility] Department of Orthopaedic Surgery [facility] H SETTER documented in this encounter ED Notes Jonah Nova MD - 09/30/2021 6:14 PM CST [facility] Emergency Department Attending Supervision Note Pt [...] and screen Admit Author: Jonah Nova MD H SETTER Francisca Harvey MD - 09/30/2021 5:45 PM CST [facility] Emergency Medicine Visit Note Chief Complaint: [...] his knee and was brought to the [facility] ED for evaluation. There, was found to [...] and left knee imaging as images from [place] of the left knee are not available. [...] femur, unspecified fracture morphology, initial encounter (HRC) H SETTER Juan Miguel Rios MD - 09/30/2021 4:01 PM CST Referred from [facility] by MD for L femur fx. Background/plan: Slipped and fell this morning. L distal femur fx. CMS intact. No other hinjury. Noton anticoag. VSS Covid negative. Needs ortho Means of arrival: EMS Call back: none H SETTER documented in this encounter Plan of Treatment Upcoming Encounters Date Type Specialty Care Team Description 09/15/2022 Appointment Orthopedics Martha Gottlieb MD [address] [place], [place] [address] (Wo rk) 10/08/2022 Appointment Orthopedics Martha Gottlieb MD [address] [place], [place] [address] (Wo rk) 05/27/2023 Appointment Chemo Therapy/Infusion Services Pending Results Name Type Priority Associated Diagnoses Date/Ti me Transfuse RBC Nursing Transfusion Routine 022 3:23 AM PATCH SETTER Scheduled Referrals Name Type Priority Associated Diagnoses [...] 10/02/2021 10:21 Resu lts for this AM PATCH SETTER procedure are i n the results section. VITAMIN D 25-HYDROXY, Routine 10/02/2021 8:22 Res ults for this TOTAL AM PATCH SETTER procedure are i n the results section. INTACT PTH Routine 10/02/2021 8:22 Results for this AM PATCH SETTER procedure are i n the results section. COMP METABOLIC PANEL Routine 10/02/2021 8:22 Resu lts for this AM PATCH SETTER procedure are i n the results section. TSH, SENSITIVE Routine 10/02/2021 8:22 Results fo r this AM PATCH SETTER procedure are i n the results section. COMPLETE BLOOD COUNT-NO Routine 10/02/2021 8:22 R esults for this DIFF AM PATCH SETTER procedure are i n the results section. GLUCOSE, WHOLE BLOOD POCT Routine 10/01/2021 3:00 Results for this PM PATCH SETTER procedure are i n the results section. XR C-ARM 3.5-4 HOURS Routine 10/01/2021 2:11 Resu lts for this PM PATCH SETTER procedure are i n the results section. HEMOGLOBIN, MEASURED POCT Routine 10/01/2021 10:52 Results for this AM PATCH SETTER procedure are i n the results section. GLUCOSE, WHOLE BLOOD POCT Routine 10/01/2021 10:48 Results for this AM PATCH SETTER procedure are i n the results section. INSERTION INTRAMEDULLARY 10/01/2021 9:59 Closed fractu re of NAIL FEMUR AM PATCH SETTER distal end of left femur, unspecified fracture morphology, initial encounter (HRC) OPEN REDUCTION INTERNAL 10/01/2021 9:59 Closed fractur e of FIXATION DISTAL FEMUR AM PATCH SETTER distal end of left FRACTURE femur, unspecified fracture morphology, initial encounter (HRC) GLUCOSE, WHOLE BLOOD POCT Routine 10/01/2021 9:16 Results for this AM PATCH SETTER procedure are i n the results section. ECG 12-LEAD ROUTINE(LAB Routine 10/01/2021 6:20 R esults for this PERFORM) AM PATCH SETTER procedure are i n the results section. [id number] ELECTROCARDIOGRAM STAT 10/01/2021 6:14 R esults for this TRACING AM PATCH SETTER procedure are i n the results section. IV INSERTION(LAB TO STAT 10/01/2021 2:34 Resul ts for this PERFORM) AM PATCH SETTER procedure are i n the results section. PREP RBC LR Routine 09/30/2021 11:01 Results for this PM PATCH SETTER procedure are i n the results section. XR PELVIS AP W AP/LAT HIP STAT 09/30/2021 7:32 Results for this LT PM PATCH SETTER procedure are i n the results section. XR FEMUR LT 2 VIEWS LOWER STAT 09/30/2021 7:32 Results for this AP/LAT PM PATCH SETTER procedure are i n the results section. XR KNEE LT 2 VIEWS STAT 09/30/2021 7:32 Result s for this PM PATCH SETTER procedure are i n the results section. CBC AND DIFFERENTIAL Routine 09/30/2021 7:02 Resu lts for this PANEL PM PATCH SETTER procedure are i n the results section. BT SECOND DRAW Routine 09/30/2021 7:02 Results fo r this PM PATCH SETTER procedure are i n the results section. COMPLETE BLOOD Routine 09/30/2021 7:02 Results fo r this COUNT-W/DIFF PM PATCH SETTER procedure are i n the results section. BASIC METABOLIC PANEL Routine 09/30/2021 7:02 Res ults for this PM PATCH SETTER procedure are i n the results section. DIFFERENTIAL Routine 09/30/2021 7:02 Results for this PM PATCH SETTER procedure are i n the results section. FERRITIN Add-On 09/30/2021 7:02 Results for this PM PATCH SETTER procedure are i n the results section. IRON PROFILE Add-On 09/30/2021 7:02 Results for this (IRON,TIBC,%SAT.(CALC)) PM PATCH SETTER proc edure are in the results section. TYPE AND SCREEN STAT 09/30/2021 6:27 Results f or this PM PATCH SETTER procedure are i n the results section. ANTIBODY SCREEN STAT 09/30/2021 6:27 Results f or this PM PATCH SETTER procedure are i n the results section. BLOOD TYPE STAT 09/30/2021 6:27 Results for this PM PATCH SETTER procedure are i n the results section. PATH REVIEW (LAB USE Routine 09/30/2021 6:27 Resu lts for this ONLY) PM PATCH SETTER procedure are i n the results section. APTT (ACTIVATED PARTIAL Routine 09/30/2021 6:27 R esults for this THROMBOPLASTIN TIME PM PATCH SETTER procedur e are in the results section. HEMOGLOBIN, BLOOD STAT 09/30/2021 6:27 Results for this PM PATCH SETTER procedure are i n the results section. INR/PROTIME Routine 09/30/2021 6:27 Results for this PM PATCH SETTER procedure are i n the results section. documented in this encounter Results XR Femur Lt 2 Views (10/02/2021 10:21 AM PATCH SETTER) Anatomical Region Laterality Modality Lower Extremity, Leg, Thigh Computed Rad iography Specimen (Source) Anatomical Collection Method Collection Time Re ceived Time Location / / Volume Laterality 10/02/2021 10:21 AM PATCH SETTER Narrative 10/02/2021 10:37 AM PATCH SETTER EXAM: XR FEMUR LT 2 VIEWS LOCATION: [facility] DATE/TIME: 10/02/2021 10:21 AM INDICATION: S/p [...] EXAM: XR FEMUR LT 2 VIEWS LOCATION: [facility] DATE/TIME: 10/02/2021 10:21 AM INDICATION: S/p [...] D 25 HYDROXY, TOTAL (10/02/2021 8:22 AM PATCH SETTER) [facility] gist Method Time Signature Vitamin D, 58 30 - 80 10/02/2021 [facility] 25-OH, Total ng/mL 12:54 PM [facility] Specimen Anatomical Collection Method / Collection Time Recei shahid Time (Source) Location / Volume Laterality Blood Venipuncture 10/02/2021 8:22 10/02/2021 8 :32 Butterfly / Unknown AM PATCH SETTER AM PATCH SETTER Keyla Gilbert APRN, KORIN LAB_1 Performing Organization Address City/State/ZIP Code Phon e Number [employer] [facility] [address] [address] TSH (10/02/2021 8:22 AM PATCH SETTER) P athologist Signature TSH, Sensitive 0.31 0.30 - 10/02/2021 [facility] 4.50 9:37 AM [facility] uIU/mL Specimen Anatomical Collection Method / Collection Time Recei shahid Time (Source) Location / Volume Laterality Blood Venipuncture 10/02/2021 8:22 10/02/2021 8 :33 Butterfly / Unknown AM PATCH SETTER AM PATCH SETTER Keyla E Ofelia WOODS LABORER, STEAM GENERATING POWERPLANT MECHANIC LAB_1 Performing Organization Address City/State/ZIP Code Phon e Number [address] [address] (ABNORMAL) Comp Metabolic Panel (10/02/2021 8:22 AM PATCH SETTER) Analysis Performed At Patho logist Time Signature Sodium 137 136 - 145 10/02/2021 [facility] mmol/L 9:19 AM [facility] Potassium 4.2 3.5 - 5.1 10/02/2021 [facility] mmol/L 9:19 AM [facility] Chloride 108 98 - 109 10/02/2021 [facility] mmol/L 9:19 AM [facility] CO2 23 20 - 29 10/02/2021 [facility] mmol/L 9:19 AM [facility] Anion Gap 6 (L) 7 - 16 10/02/2021 [facility] mmol/L 9:19 AM [facility] Calcium 8.4 8.4 - 10.4 10/02/2021 [facility] mg/dL 9:19 AM [facility] BUN 30 (H) 7 - 26 10/02/2021 [facility] mg/dL 9:19 AM [facility] Creatinine 0.96 0.73 - 10/02/2021 [facility] 1.18 mg/dL 9:19 AM [facility] GFR, Estimated >60 >60 10/02/2021 [facility] mL/min/1.7 9:19 AM [facility] 3m2 Alkaline 42 40 - 150 10/02/2021 [facility] Phosphatase U/L 9:19 AM [facility] AST (SGOT) 12 10 - 40 10/02/2021 [facility] U/L 9:19 AM [facility] ALT (SGPT) 13 0 - 55 U/L 10/02/2021 [facility] 9:19 AM [facility] Bilirubin, Total 0.2 0.2 - 1.2 10/02/2021 [facility] mg/dL 9:19 AM [facility] Protein, Total 5.5 (L) 6.4 - 8.3 10/02/2021 [facility] g/dL 9:19 AM [facility] Albumin 3.1 (L) 3.5 - 5.0 10/02/2021 [facility] g/dL 9:19 AM [facility] Glucose 116 (H) 70 - 100 10/02/2021 [facility] mg/dL 9:19 AM [facility] Comment: The given reference range is fo r the fasting state. Non-fasting reference range for glucose is 70 - 180 mg/dL. Specimen Anatomical Collection Method / Collection Time Recei shahid Time (Source) Location / Volume Laterality Blood Venipuncture 10/02/2021 8:22 10/02/2021 8 :33 Butterfly / Unknown AM PATCH SETTER AM PATCH SETTER Keyla Gilbert APRN, KORIN LAB_1 Performing Organization Address City/State/ZIP Code Phon e Number [address] [address] (ABNORMAL) Complete Blood Count-No Diff (10/02/2021 8:22 AM [facility]) Analysis Performed At Patho logist Time Signature WBC 7.5 3.5 - 10.5 10/02/2021 [facility] x10(9)/L 9:19 AM [facility] RBC 2.41 (L) 4.32 - 10/02/2021 [facility] 5.72 9:19 AM [facility] x10(12)/L Hemoglobin 5.6 (LL) 13.5 - 10/02/2021 [facility] 17.5 g/dL 9:19 AM [facility] HCT 19.3 (L) 38.8 - 10/02/2021 [facility] 50.0 % 9:19 AM [facility] MCV 80.1 80.0 - 10/02/2021 [facility] 100.0 fL 9:19 AM [facility] MCH 23.2 (L) 27.6 - 10/02/2021 [facility] 33.3 pg 9:19 AM [facility] MCHC 29.0 (L) 31.5 - 10/02/2021 [facility] 35.2 g/dL 9:19 AM [facility] RDW 17.2 (H) 11.9 - 10/02/2021 [facility] 15.5 % 9:19 AM [facility] Platelets 130 (L) 150 - 450 10/02/2021 [facility] x10(9)/L 9:19 AM [facility] Automated NRBC 0 <=0 /100 10/02/2021 [facility] WBC 9:19 AM [facility] Specimen Anatomical Collection Method / Collection Time Recei shahid Time (Source) Location / Volume Laterality Blood Venipuncture 10/02/2021 8:22 10/02/2021 8 :33 Butterfly / Unknown AM PATCH SETTER AM PATCH SETTER Keyla Gilbert APRN, CNP LAB_1 Performing Organization Address [facility]/ZIP [facility] Phon e Number [address] [address] Intact PTH (10/02/2021 8:22 AM PATCH SETTER) P athologist Signature Intact PTH 96 10 - 100 10/02/2021 [facility] pg/mL 9:37 AM PATCH SETTER HOSPITAL Specimen Anatomical Collection Method / Collection Time Recei shahid Time (Source) Location / Volume Laterality Blood Venipuncture 10/02/2021 8:22 10/02/2021 8 :33 Butterfly / Unknown AM PATCH SETTER AM PATCH SETTER Keyla Gilbert APRN, CNP LAB_1 Performing Organization Address [facility] e Number [address] [address] Glucose, Whole Blood POCT (10/01/2021 3:00 PM PATCH SETTER) [facility] gist Method Time Signature Glucose, Whole 166 70 - 180 10/01/2021 [facility] Blood mg/dL 3:01 PM PATCH SETTER HOSPITAL POCT Comment 1 MD Notified 10/01/2021 [facility] 3:01 PM PATCH SETTER HOSPITAL Performing R[facility]AB PACU 10/01/2021 [facility] Location 3:01 PM [facility] Specimen Anatomical Collection Method Collection Time Receive d Time (Source) Location / / Volume Laterality Blood 10/01/2021 3:00 PM 3:01 PATCH SETTER PM PATCH SETTER Martha Gottlieb MD LAB_1 Performing Organization Address [facility]/ZIP [facility] Phon e Number [address] [address] XR C-Arm 3.5-4 Hours (10/01/2021 2:11 PM PATCH SETTER) Anatomical Region Laterality Modality X-Ray Angiography Specimen (Source) Anatomical Location Collection Method / Collectio n Time Received Time / Laterality Volume Narrative 10/01/2021 2:12 PM PATCH SETTER Fluoroscopy provided by a professor of radiology. Exact fluoroscopy time is documented in end of exam information in EPIC Martha Gottlieb MD RAD GD (ABNORMAL) Hemoglobin, Measured POCT (10/01/2021 10:52 AM PATCH SETTER) Analysis Performed At [facility] logist Time Signature Hemoglobin 8.5 (L) 13.5 - 10/03/2021 [facility] 17.5 g/dL 7:17 AM [facility] Performing RCLAB OR 10/03/2021 [facility] Location 7:17 AM [facility] Specimen Anatomical Collection Method Collection Time Receive d Time (Source) Location / / Volume Laterality Blood 10/01/2021 10:52 10/03/2021 7:17 AM PATCH SETTER AM PATCH SETTER Martha Gottlieb MD LAB_1 Performing Organization Address City/[facility]/ZIP Code Phon e Number [address] [address] Glucose, Whole Blood POCT (10/01/2021 10:48 AM PATCH SETTER) [facility] gist Method Time Signature Glucose, Whole 103 70 - 180 10/01/2021 [facility] Blood mg/dL 10:50 AM [facility] POCT Comment 1 No Action 10/01/2021 [facility] Required 10:50 AM [facility] Performing RCLAB OR 10/01/2021 [facility] Location 10:50 AM [facility] Specimen Anatomical Collection Method Collection Time Receive d Time (Source) Location / / Volume Laterality Blood 10/01/2021 10:48 10/01/2021 AM PATCH SETTER 10:50 AM PATCH SETTER Martha Gottlieb MD LAB_1 Performing Organization Address City/[facility]/ZIP Code Phon e Number [address] [address] Glucose, Whole Blood POCT (10/01/2021 9:16 AM PATCH SETTER) [facility] gist Method Time Signature Glucose, Whole 106 70 - 180 10/01/2021 [facility] Blood mg/dL 9:17 AM [facility] Performing RCLAB SDS 10/01/2021 [facility] Location 9:17 AM PATCH SETTER HOSPITAL Specimen Anatomical Collection Method Collection Time Receive d Time (Source) Location / / Volume Laterality Blood 10/01/2021 9:16 AM 9:17 PATCH SETTER AM PATCH SETTER Martha Gottlieb MD LAB_1 Performing Organization Address City/[facility]/ZIP Code Phon e Number [address] [address] Transfuse RBC (10/01/2021 8:38 AM PATCH SETTER) Josep Peck MD ET NURSING BLOOD ADMIN ECG 12-Lead Routine (Lab perform) (10/01/2021 6:20 AM PATCH SETTER) P athologist Signature EKG Completed 10/01/2021 [facility] 11:02 AM [facility] Specimen Anatomical Collection Method Collection Time Receive d Time (Source) Location / / Volume Laterality Other Specimen Non-blood 10/01/2021 6:20 AM 022 9:57 Type Collection / PATCH SETTER AM PATCH SETTER Unknown Óscar Simms DO LAB_1 Performing Organization Address City/State/ZIP Code Phon e Number [facility] [address] [place] [address] Ecg 12-Lead Routine (MUSE) (10/01/2021 6:14 AM PATCH SETTER) P athologist Signature Ventricular Rate 64 BPM MUSE [facility] Atrial Rate 64 BPM [facility]USE [facility] P-R Interval 448 ms MUSE [facility] QRS Duration 176 ms MUSE G[facility] QT 466 ms MUSE [facility] QTc 480 ms MUSE [facility] R [place] -89 degrees MUSE GHP T [place] 68 degrees MUSE G[facility] Specimen (Source) Anatomical Collection Method Collection Time Re ceived Time Location / / Volume Laterality 10/01/2021 6:14 AM PATCH SETTER Narrative MUSE GHP - 10/01/2021 2:40 PM PATCH SETTER Atrial-sensed ventricular-paced rhythm with prolonged AV conduction Abnormal ECG No previous ECGs available Confirmed by Pancho Dangelo ([id number]) on 10/01/19 2:40:30 PM Procedure Note Pancho Dangelo MD - 10/01/2021 Atrial-sensed ventricular-paced rhythm w ith prolonged AV conduction Abnormal ECG No previous ECGs available Confirmed by Pancho Dangelo ([id number]) on 10/01/19 2:40:30 PM Óscar Simms DO EKG Performing Organization Address [facility]/ZIP Code Phon e Number [facility] [address] [place] [address] IV Insertion, LST Perform (10/01/2021 2:34 AM PATCH SETTER) P athologist Signature IV INSERTION, Done 10/01/2021 [facility] LST PERFORM 5:03 AM [facility] (LAB) Specimen Anatomical Collection Method / Collection Time Recei shahid Time (Source) Location / Volume Laterality Other Specimen Venipuncture 10/01/2021 2:34 10/01/2021 3:20 Type Butterfly / Unknown AM PATCH SETTER AM PATCH SETTER Josep Peck MD LAB_1 Performing Organization Address [facility] Phon e Number [address] [address] Prep RBC: , 2 Units (09/30/2021 11:01 PM PATCH SETTER) Component Value Ref Test Analysis Performed At [facility] Range Method Time Signature BLOOD PRODUCT [id number] [facility] CODE BLOOD BANK BLOOD UNIT NUMBER [id number] [facility] S BLOOD [facility] CROSSMATCH Compatible [facility] INTERPRETATION BLOOD BANK BLOOD DISPENSE Transfused [facility] STATUS BLOOD B[facility] Unit Expiration [facility] Date BLOOD BANK UNIT BT BARCODE 6200 [facility] PRODUCT VOL ML 400 [facility] CODING SYSTEM ISBT [facility] PRODUCT RBC LR [facility] BLOOD PRODUCT [id number] [facility] CODE [facility]LOOD [facility] BLOOD UNIT NUMBER [id number] [facility] BLOOD [facility] CROSSMATCH Compatible [facility] [...] / Volume Laterality Blood 09/30/2021 11:01 PM PATCH SETTER Josep Peck MD LAB_BLOOD PRODUCTS Performing Organization Address [facility] Phon e Number [facility] BLOOD BANK [address] [place] [phone] XR Femur Lt 2 Views Lower AP/Lat (09/30/2021 7:32 PM PATCH SETTER) Anatomical Region Laterality Modality Lower Extremity, Leg, Thigh Computed Rad iography Specimen (Source) Anatomical Collection Method Collection Time Re ceived Time Location / / Volume Laterality 09/30/2021 7:32 PM PATCH SETTER Narrative 09/30/2021 7:41 PM PATCH SETTER EXAM: XR FEMUR LT 2 VIEWS LOWER AP/LAT LOCATION: [facility] DATE/TIME: 09/30/2021 7:32 PM INDICATION: Left [...] Knee Lt 2 Views (09/30/2021 7:32 PM PATCH SETTER) Anatomical Region Laterality Modality Lower Extremity, Knee Computed Radiograp hy Specimen (Source) Anatomical Collection Method Collection Time Re ceived Time Location / / Volume Laterality 09/30/2021 7:32 PM PATCH SETTER Narrative 09/30/2021 7:38 PM PATCH SETTER EXAM: XR KNEE LT 2 VIEWS LOCATION: [...] W AP/Lat Hip Lt (09/30/2021 7:32 PM PATCH SETTER) Anatomical Region Laterality Modality Pelvis, Hip Computed Radiography Specimen (Source) Anatomical Collection Method Collection Time Re ceived Time Location / / Volume Laterality 09/30/2021 7:32 PM PATCH SETTER Narrative 09/30/2021 7:41 PM PATCH SETTER EXAM: XR PELVIS AP W AP/LAT HIP LT LOCATION: [facility] DATE/TIME: 09/30/2021 7:32 PM INDICATION: Left [...] PELVIS AP W AP/LAT HIP LT LOCATION: [facility] DATE/TIME: 09/30/2021 7:32 PM INDICATION: Left [...] RAD GD (ABNORMAL) Ferritin (09/30/2021 7:02 PM PATCH SETTER) P athologist Signature Ferritin 13 (L) 22 - 275 09/30/2021 [facility] ng/mL 10:48 PM [facility] Specimen Anatomical Collection Method / Collection Time Recei shahid Time (Source) Location / Volume Laterality Blood Venipuncture / 09/30/2021 7:02 09/30/2021 7:07 Unknown PM PATCH SETTER PM PATCH SETTER Ted Burdick MD LAB_1 Performing Organization Address City/State/ZIP Code Phon e Number [address] [address] (ABNORMAL) Iron Profile (Iron,TIBC,%Sat.(Calc)) (09/30/2021 7:02 PM PATCH SETTER) [facility] Method Time Signature Iron 14 (L) 65 - 175 09/30/2021 [facility] mcg/dL 10:41 PM HOSPITAL PATCH SETTER Transferrin 324 174 - 364 09/30/2021 [facility] mg/dL 10:41 PM HOSPITAL PATCH SETTER TIBC, Calculated 405 240 - 450 09/30/2021 [facility] mcg/dL 10:41 PM [facility]OSPITAL PATCH SETTER % Saturation, 3 (L) 10 - 50 % 09/30/2021 [facility] Calculated 10:41 PM HOSPITAL PATCH SETTER TIBC Low iron, 09/30/2021 [facility] Interpretation normal TIBC, 10:41 PM HOSPITAL possible PATCH SETTER iron deficiency. Specimen Anatomical Collection Method / Collection Time Recei shahid Time (Source) Location / Volume Laterality Blood Venipuncture / 09/30/2021 7:02 09/30/2021 7:07 Unknown PM PATCH SETTER PM PATCH SETTER Ted Burdick MD LAB_1 Performing Organization Address City/State/ZIP Code Phon e Number [address] [address] (ABNORMAL) Differential (09/30/2021 7:02 PM PATCH SETTER) [facility] Method Time Signature Polychromasia Slight (A) None Seen 09/30/2021 [facility] 7:42 PM [facility] RBC Morphology Reviewed 09/30/2021 [facility] 7:42 PM [facility] Platelet Estimate Adequate Adequate 09/30/2021 [facility] 7:42 PM [facility] Neutrophil 7.1 (H) 1.7 - 7.0 09/30/2021 [facility] Absolute 10(9)/L 7:42 PM [facility] Lymphocyte 0.5 (L) 1.0 - 4.8 09/30/2021 [facility] Absolute 10(9)/L 7:42 PM [facility] Monocytes 0.3 0.2 - 0.9 09/30/2021 [facility] Absolute 10(9)/L 7:42 PM [facility] Eosinophil 0.0 0.0 - 0.5 09/30/2021 [facility] Absolute 10(9)/L 7:42 PM [facility] Basophil Absolute 0.1 0.0 - 0.3 09/30/2021 [facility] 10(9)/L 7:42 PM [facility] Specimen Anatomical Collection Method / Collection Time Recei shahid Time (Source) Location / Volume Laterality Blood Venipuncture / 09/30/2021 7:02 09/30/2021 7:07 Unknown PM PATCH SETTER PM PATCH SETTER Jonah Nova MD LAB_1 Performing Organization Address [facility]/ZIP [facility] Phon e Number [address] [address] Blood Type second draw (09/30/2021 7:02 PM PATCH SETTER) P athologist Signature ABO A 09/30/2021 [facility] BLOOD 7:42 PM [facility] RH Positive 09/30/2021 [facility] BLOOD 7:42 PM [facility] Specimen Anatomical Collection Method / Collection Time Recei shahid Time (Source) Location / Volume Laterality Blood Venipuncture / 09/30/2021 7:02 09/30/2021 7:07 Unknown PM PATCH SETTER PM PATCH SETTER Eugenia Gupta MD LAB_1 Performing Organization Address [facility] Phon e Number [facility] BLOOD B[facility] [address] [place] [address] (ABNORMAL) Complete Blood Count-W/Diff (09/30/2021 7:02 PM PATCH SETTER) Analysis Performed At Patho logist Time Signature WBC 8.0 3.5 - 10.5 09/30/2021 [facility] x10(9)/L 7:42 PM [facility] RBC 2.68 (L) 4.32 - 09/30/2021 [facility] 5.72 7:42 PM [facility] x10(12)/L Hemoglobin 6.0 (LL) 13.5 - 09/30/2021 [facility] 17.5 g/dL 7:42 PM [facility] HCT 20.8 (L) 38.8 - 09/30/2021 [facility] 50.0 % 7:42 PM [facility] MCV 77.6 (L) 80.0 - 09/30/2021 [facility] 100.0 fL 7:42 PM [facility] MCH 22.4 (L) 27.6 - 09/30/2021 [facility] 33.3 pg 7:42 PM [facility] MCHC 28.8 (L) 31.5 - 09/30/2021 [facility] 35.2 g/dL 7:42 PM [facility] RDW 17.5 (H) 11.9 - 09/30/2021 [facility] 15.5 % 7:42 PM [facility] Platelets 151 150 - 450 09/30/2021 [facility] x10(9)/L 7:42 PM [facility] Automated NRBC 0 <=0 /100 09/30/2021 [facility] WBC 7:42 PM [facility] Specimen Anatomical Collection Method / Collection Time Recei shahid Time (Source) Location / Volume Laterality Blood Venipuncture / 09/30/2021 7:02 09/30/2021 7:07 Unknown PM PATCH SETTER PM PATCH SETTER Jonah Nova MD LAB_1 Performing Organization Address City/State/ZIP Code Phon e Number [address] [address] (ABNORMAL) Basic Metabolic Panel (09/30/2021 7:02 PM [facility]) P athologist Signature Sodium 136 136 - 145 09/30/2021 [facility] mmol/L 7:46 PM [facility] Potassium 4.0 3.5 - 5.1 09/30/2021 [facility] mmol/L 7:46 PM [facility] Chloride 104 98 - 109 09/30/2021 [facility] mmol/L 7:46 PM [facility] CO2 24 20 - 29 09/30/2021 [facility] mmol/L 7:46 PM [facility] Anion Gap 8 7 - 16 09/30/2021 [facility] mmol/L 7:46 PM [facility] Calcium 8.4 8.4 - 10.4 09/30/2021 [facility] mg/dL 7:46 PM [facility] BUN 26 7 - 26 09/30/2021 [facility] mg/dL 7:46 PM [facility] Creatinine 0.78 0.73 - 09/30/2021 [facility] 1.18 mg/dL 7:46 PM [facility] GFR, Estimated >60 >60 09/30/2021 [facility] mL/min/1.7 7:46 PM [facility] 3m2 Glucose 152 (H) 70 - 100 09/30/2021 [facility] mg/dL 7:46 PM [facility] Comment: The given reference range is fo r the fasting state. Non-fasting reference range for glucose is 70 - 180 mg/dL. Specimen Anatomical Collection Method / Collection Time Recei shahid Time (Source) Location / Volume Laterality Blood Venipuncture / 09/30/2021 7:02 09/30/2021 7:07 Unknown PM PATCH SETTER PM PATCH SETTER Jonah Nova MD LAB_1 Performing Organization Address [facility] Phon e Number [address] [address] Blood Smear Review (Lab Use Only) (09/30/2021 6:27 PM PATCH SETTER) Patholo gist Method Time Signature Path Review Special heme 10/01/2021 [facility] tech 11:24 AM [facility] performed slide review Path Review Hgb low 10/01/2021 [facility] Reason 11:24 AM [facility] Specimen Anatomical Collection Method / Collection Time Recei shahid Time (Source) Location / Volume Laterality Blood Venipuncture / 09/30/2021 6:27 09/30/2021 6:47 Unknown PM PATCH SETTER PM PATCH SETTER Jonah Nova MD LAB_1 Performing Organization Address [facility] Phon e Number [address] [address] (ABNORMAL) Hemoglobin, Blood (09/30/2021 6:27 PM PATCH SETTER) P athologist Signature Hemoglobin 5.8 (LL) 13.5 - 17.5 09/30/2021 [facility] g/dL 7:12 PM [facility] Specimen Anatomical Collection Method / Collection Time Recei shahid Time (Source) Location / Volume Laterality Blood Venipuncture / 09/30/2021 6:27 09/30/2021 6:47 Unknown PM PATCH SETTER PM PATCH SETTER Jonah Nova MD LAB_1 Performing Organization Address [facility] Phon e Number [address] [address] INR/Protime (09/30/2021 6:27 PM PATCH SETTER) P athologist Signature Protime 13.6 11.8 - 14.6 09/30/2021 [facility] Seconds 7:03 PM [facility] INR 1.1 0.9 - 1.1 09/30/2021 [facility] 7:03 PM [facility] Specimen Anatomical Collection Method / Collection Time Recei shahid Time (Source) Location / Volume Laterality Blood Venipuncture / 09/30/2021 6:27 09/30/2021 6:47 Unknown PM PATCH SETTER PM PATCH SETTER [facility] - 09/30/2021 7:03 PM CS T Therapeutic range determined by protocol established by anticoagulation provider. Jonah Nova MD LAB_1 Performing Organization Address [facility] e Number [address] [address] APTT (Activated Partial Thromboplastin Time) (09/30/2021 6:27 PM PATCH SETTER) P athologist Signature APTT 31.7 22.5 - 36.5 09/30/2021 [facility] Seconds 7:03 PM [facility] Specimen Anatomical Collection Method / Collection Time Recei shahid Time (Source) Location / Volume Laterality Blood Venipuncture / 09/30/2021 6:27 09/30/2021 6:47 Unknown PM PATCH SETTER PM PATCH SETTER Jonah Nova MD LAB_1 Performing Organization Address [facility] e [address] [address] Antibody Screen (09/30/2021 6:27 PM PATCH SETTER) Patholo gist Method Time Signature Antibody Screen Negative 09/30/2021 [facility] BLOOD Interpretation 7:35 PM [facility] BANK Specimen Anatomical Collection Method / Collection Time Recei shahid Time (Source) Location / Volume Laterality Blood Venipuncture / 09/30/2021 6:27 09/30/2021 6:46 Unknown PM PATCH SETTER PM PATCH SETTER Jonah Nova MD LAB_1 Performing Organization Address [facility] Phon e Number [facility] BLOOD [facility] [address] [place] [address] Blood Type (09/30/2021 6:27 PM PATCH SETTER) P athologist Signature ABO A 09/30/2021 [facility] BLOOD 7:23 PM [facility] B[facility] RH Positive 09/30/2021 [facility] BLOOD 7:23 PM [facility] Specimen Anatomical Collection Method / Collection Time Recei shahid Time (Source) Location / Volume Laterality Blood Venipuncture / 09/30/2021 6:27 09/30/2021 6:46 Unknown PM PATCH SETTER PM PATCH SETTER Jonah Nova MD LAB_1 Performing Organization Address [facility] Phon e Number [facility] BLOOD [facility] [address] [place] [address] documented in this encounter Visit Diagnoses Diagnosis [...] not set up. Will try again later H SETTER Plan of Care - Brenda Bar RN - 10/03/2021 3:24 PM CST [facility] Discharge Note - Nursing Admission Date/Time: 09/30/2021 5:33 PM Attending MD: Martha Gottlieb MD Patient discharged: to Home. Discharge Date: 10/03/2021 Discharge Time: 3:24 PM Patient accompanied by: self and transportation technician (TSI). Transported by: Wheelchair Valuables were taken [...] stored: Yes --- End of Report --- H SETTER Plan of Care - Afshan Guajardo RN - 10/03/2021 3:09 PM CST I completed a full assessment and assessments as ordered and per policy on this patient during my work shift. Reassessments completed during my work shift are unchanged unless documented. H SETTER Plan of Care - Dilcia Barr RN - 10/03/2021 2:02 PM CST [facility] Care Management Discharge Note Discharge Information: Expected [...] to shower in basement) Contacts: Emergency Contacts Appliance Worker (Rel.) Home Phone Work Phone Mobile Phone Magali Luna (Spouse) [phone] -- -- Decline,Pt 03/23/2018 -- -- -- [...] Additional Comments: Case discussed in care rounds. Train Brake Operator was notified that patient needing assistance with transportation home. I met with patient, he is needing a wheelchair ride home today. His will be home when he arrives but she is unable to drive. He has a ramp to enter the home and has [employer] PMAP. Ride re quested and obtained for 1415. PT recommending outpatient PT, pt prefers to go to [facility] for outpatient PT. Paged ortho hr internship and obtained order which I printed and gave to the patient and instructed him to call [facility] and they will want him to bring printed order to appt. Dilcia Barr RN H SETTER Plan of Care - Linda Longo RN - 10/03/2021 7:28 AM CST I completed a full assessment and assessments as ordered and per policy on this patient during my work shift. Reassessments completed during my work shift are unchanged unless documented. H SETTER Plan of Care - Brenda Bar RN [...] my work shift are unchanged unless documented. H SETTER Plan of Care - Kera Reeder RN - 10/02/2021 2:58 PM CST I completed a full assessment and assessments as ordered on this patient during my work shift. Reassessments completed during my work shift are unchanged unless documented. H SETTER Plan of Care - Sommer Lowery RN - 10/02/2021 1:16 AM CST [facility] Plan of Care Note Assessment: Plan of [...] unless documented. --- End of Report --- H SETTER Plan of Care - Brenda Bar RN [...] willing to answer and let RN do. H SETTER Plan of Care - Josep Cervantes MD [...] to the patient and agreed upon by [facility] care team. Josep Cervantes MD Orthopaedic Surgery, PGY-2 Pager: [phone] H SETTER Plan of Care - Brenda Bar RN - 10/01/2021 5:06 PM CST [facility]. Practitioner Notified Note Name of Practitioner notified: Ortho consult Time of Practitioner notification: 5:08 PM Reason: E. Hol., 9633, Pt stating he will leave hospital without coming to floor. Not situationcan, security aware. Response: Ortho team coming up to talk to pt with security at bedside. Will notify pt at that time that is unable to come to floor. H SETTER Plan of Care - Estephania Mejia RN - 10/01/2021 2:19 PM CST [facility] Plan of Care Note Assessment: aggression, safety, [...] unless documented. --- End of Report --- H SETTER Plan of Care - Ladan Najera RN - 10/01/2021 10:08 AM CST [facility]. Practitioner Notified Note Name of Practitioner notified: Dr Gottlieb Time of Practitioner notification: 10:08 AM Reason: Luna, Ed: Can you come back to patient in STCU 2? Patient refusing blood products and needs to sign on consent. Thanks. Response: Will come see patient H SETTER Plan of Care - Estephania Mejia RN - 10/01/2021 9:04 AM CST [facility] Nursing Pre-Op Note Admission Date/Time: 09/30/2021 5:33 PM Time of transport to the Operating Room: 09 Transported by: Litter/cart Pre-Op checklist complete?: yes H SETTER Plan of Care - Diana Early RN - 10/01/2021 3:56 AM CST [facility] Plan of Care Note Assessment: Plan of [...] two providers. Concerned about heather communicable diseases. Weight Reducing Technician stated this may delay his surgery. Patient states that he was being forced to get blood. Weight Reducing Technician explained the safety concerns of low hemoglobin and surgery. Patient stated he did not want to talk about it anymore. Aboutan hour later patient stated that he would take the blood under protest. Weight Reducing Technician clarified that this meant he was consenting. Patient confirmed. Started transfusion of 2 units. I completed a full assessment and assessments as ordered and per policy on this patient during my work shift. Reassessments completed during my work shift are unchanged unless documented. --- End of Report --- H SETTER Plan of Care - Josep Cervantes MD [...] and that this country is [facility] . I recognized that thepatient has reservations [...] health. He [email or web address] He repeatedly statedthat the only circumstances under which he would be willing to receive blood is if I personally drafted a statement or letter that would allow him to yudi me personally, his nurse, and [facility] if he received any sort of blood borne illness from a transfusion. I explained that [facility] does not have such statements. Ultimately, I [...] Josep Cervantes MD Orthopaedic Surgery, PGY-2 Pager: [phone] H SETTER Triage Assessment Note - Yari Adams RN - 09/30/2021 5:35 PM PATCH SETTER Patient arrived by [facility] from Hospital with chief complaint: Femur fracture Symptoms/background (EMS narrative): Pt. Was at home and slipped on the ice and fell on the left knee. CMS intact. Leg was splinted at [place] ED. Has been given dilaudid for pain. Interventions/abnormal vitals: VSS. 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 H SETTER documented in this encounter Admitting Diagnoses Diagnosis [...] chewable tablet Given 10/03/2021 9:32 A M PATCH SETTER 1,000 mg 500-1,000 mg 500-1,000 mg, Oral, QID PRN, Heartburn, Dyspepsia, Starting on Thu09/30/21 at 2142, Until Thu10/03/21 at 1754, Each tablet provides 200 mg elemental calcium Given 10/02/2021 7:13 PM PATCH SETTER 1,000 mg Given 10/02/2021 2:30 PM PATCH SETTER 1,000 mg dextrose (D50) injection 25 g [...] tablet 500 mg Given 09/30/2021 10:35 PM PATCH SETTER 500 mg 500 mg, Oral, Q6H PRN, [...] immediate release tablet Given 10/03/2021 2:44 PM PATCH SETTER 5 mg 5-10 mg 5-10 mg, Oral, Q4H PRN, Pain, Starting on Thu09/30/21 at 2142, Until Ruth 10/03/21 at 1754, Give PO opioid if able to take PO and pain not well controlled with other medications or interventions. Given 10/03/2021 9:32 AM PATCH SETTER 10 mg Given 10/02/2021 11:09 AM PATCH SETTER 5 mg polyethylene glycol (MIRALAX) oral powde [...] Recently Administered Medications Times are shown in PATCH SETTER. Scheduled Medication Order 10/01/2021 10/02/2021 10/03/2021 acetaminophen [...] 1030 (Given - Provider: Pooja Whitlock APRN, ASSISTANT PROFESSOR IN FAMILY STUDIES) 2 g, Intravenous, Administer over 30 Min [...] Provider: Anika Lazo, SIMEON) 25-50 mcg, Intravenous, [id number], Pain, Starting on Thu10/01/21 at 1412, Until [...] documented in this encounter Care Teams Public Health Epidemiologist Relationship Specialty Start Date End Date Kevin Cobb MD PCP - General Family Practice 09/30/21 documented as of this encounter
--- OUTSIDE RECORDS SUMMARY | 2022-08-19 10:48 | XMS_ITS | Encounter Summary ---
:1960 Author Organization [facility] Address [address] [place] [address] Care Team Providers Name Role Phone Cintia Cobb MD Primary Care Provider [phone] Encounter Details Date Type Department Care Team Description 09/18/2021 Notes/Orders [facility] Cesar Champagne, [address] [place], [place] [address] [phone] [address] [place] [address] (Gavi rk) Social History Tobacco [...] Description 09/15/2022 Appointment Orthopedics Delgado Gottlieb MD [address] [place] [phone] (Gavi rk) 10/08/2022 Appointment Orthopedics Delgado Gottlieb MD [address] [place] [phone] (Wo rk) 05/27/2023 Appointment Chemo Therapy/Infusion Services documented as of this encounter Visit Diagnoses Not on filedocumented in this encounter Care Teams Ase Certified Technician Relationship Specialty Start Date End Date Cintia Cobb MD PCP - General Family Practice 09/30/21 documented as of this encounter
--- OUTSIDE RECORDS SUMMARY | 2022-08-19 10:48 | XMS_ITS | Encounter Summary ---
:1960 Author Organization [facility] Address [address] [address] Care Team Providers Name Role Phone Ladan Song MD Primary Care Provider Unavailable Reason for Referral (Routine) - New Request Specialty Diagnoses / Procedures Referred By Contact Refer red To Contact Diagnoses Lumbar radiculitis Juan Miguel Buckley MD Procedures [facility] [address] [place] [address]43 1 Referral ID Status Reason Start Date Expiration Date Visits V isits Requested Authorized [id number] New Request 06/26/2021 09/25/2022 1 1 Reason for Visit Reason Comments Procedure Procedure/Equipment (Routine) - Closed Specialty Diagnoses / Referred By Contact Referred To Contact Procedures Interventional Pain Mgmt Diagnoses Osteoarthritis of spine with radiculopathy, lumbar region (HRC) Cesar Scherer, [facility] Procedures FL C Arm 20 Pain Management 8[address] [facility] [address] [place] [address] [phone] [place], [place] Phone: [phone] Referral ID Status Reason Start Date Expiration Date Visits Requ ested Visits Authorized [id number] Closed 05/14/2021 08/13/2022 1 1 Encounter Details Date Type Department Care Team Description 06/26/2021 Procedure Visit [facility] Cesar Scherer MD [address] [facility] [address] [place] [address] Procedure [address] [facility] [address] Juan Miguel Buckley MD [address] [facility] [place] [address] [place] 5543 1 1, Jean Brady Rn [phone] Social History Tobacco Use Types Packs/Day Years [...] Dr. Scherer in 10-14 days. Please call [phone] to schedule an appointment if you do not already have one. Lumbar Epidural Injection Post-Procedure Instructions: ?? Rest today, you may resume your normal activities tomorrow (Physical Therapy & administrator health care facility can also be resumed next day). ?? [...] and Anesthesiologist Please contact the Pain Nurse ([phone]) for all medical/procedural questions regarding your care at the [facility] Please contact our Assistant Food Service Director ([phone]) for all administrative/scheduling questions related to the [...] completed, patient verbalizes understanding. 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 Consent per MD. Rebecca Leiva RN - 06/26/2021 7:30 AM CDT Patient tolerated procedure well, vital signs stable. Post-procedure pain level 0/10 at rest, 0/10 with activity. Discharge instructions given (written & verbal review), patient verbalized understanding. Patient discharged to home at 0820 via ambulatory with tier truck driver. documented in this encounter Procedure Notes Juan Miguel Buckley MD - 06/26/2021 7:30 AM CDT Procedure Note Lumbar Interlaminar ERIN Procedure Date: 06/26/2021 Ed [facility] Date of : 1960 Interventionalist: Juan [...] prone on the fluoroscopy table. Then a broke man film was taken to identify the correct [...] well and was discharged home, with a tier truck driver, in stable condition with post [...] 09/15/2022 Appointment Orthopedics Delgado Gottlieb MD [address] [place], [place] [address] (Wo rk) 10/08/2022 Appointment Orthopedics Delgado Gottlieb MD [address] [place], [place] [address] (Gavi rk) 05/27/2023 Appointment [...] (HRC) documented in this encounter Care Teams Clinical Reviewer Relationship Specialty Start Date End Date Ladan Song MD PCP - General Internal Medicine 08/18/17 09/29/21 documented as of this encounter
--- OUTSIDE RECORDS SUMMARY | 2022-08-19 10:48 | XMS_ITS | Encounter Summary ---
:1960 [facility] Address [address] [place] [address] Care Team Providers Name Role Phone Ladan Song MD Primary Care Provider Unavailable Reason for Visit Reason Comments Post Visit Follow Up Phone Call Encounter Details Date Type Department Care Team Description 06/27/2021 Telephone [facility] Lizeth Valentino Post Visit Follow Up [address] [facility] Yeni Dooley, SIMEON Phone Call [place], [place] [address] Social History Tobacco Use Types [...] 09/15/2022 Appointment Orthopedics Delgado Gottlieb MD [address] [place], [place] [address] (Gavi presley) 10/08/2022 Appointment Orthopedics Delgado Gottlieb MD [address] [place], [place] [address] (Gavi presley) 05/27/2023 Appointment Chemo Therapy/Infusion Services documented as of this encounter Visit Diagnoses Not on filedocumented in this encounter Care Teams Senior Tech Manufacturing Engineering Relationship Specialty Start Date End Date Ladan Song MD PCP - General Internal Medicine 08/18/17 09/29/21 documented as of this encounter
--- OUTSIDE RECORDS SUMMARY | 2022-08-19 10:49 | XMS_ITS | Encounter Summary ---
:1960 Author Organization [facility] Address [address] [place] [address] Care Team Providers Name Role Phone Ladan Song MD Primary Care Provider Unavailable Reason for Referral Procedure/Equipment (Routine) - Incomplete Specialty Diagnoses / Procedures Referred By Contact Refer red To Contact Diagnoses Low back pain, unspecified back pain laterality, unspecified chronicity, with sciatica presence unspecified (HRC) Giovanni Wilson MD Procedures FL C Arm 20 Pain Management [address] [facility] [place] [address] 1 Referral ID Status Reason Start Date Expiration Date Visits V isits Requested Authorized [id number] Incomplete 06/07/2018 09/06/2019 1 1 Reason for Visit Reason Comments BACK PAIN, LOW Encounter Details Date Type Department Care Team Description 06/07/2018 Office Visit [facility] Giovanni Wilson juani k pain, unspecified back pain laterality, unspecified chronicity, with sciatica presence unspecified (HRC) (Primary Dx); MELANIA Dooley MD Displacement of lumbar intervertebral di ny [address] [facility] [address] [facility] [place] [address] [phone] Social History Tobacco Use Types Packs/Day Years [...] CDT Dr. Giovanni Wilson MD [facility] Spine Iron Pellet Tester: Anya Pittman Please contact Anya for all administrative questions at [phone] Please contact the Spine Nurse for all medical related questions at [phone] Office Hours: Thursday-Thursday and AM Medication Requests: Prescriptions are not filled on Weekends or on Weekdays after 3:00PM For all medication refills: Request a refill using MyChart or contact your Pharmacy documented in this encounter Progress Notes Giovanni Wilson MD - 06/07/2018 12:00 PM CDT NAME: LAZ LUNA MR#: [id number] CSN: [id number] AUTHENTICATING CLINICIAN: Giovanni Wilson MD CONFIRM #: [id number] LOC: 711 CLINIC PROGRESS NOTE DATE OF VISIT: 06/07/2018 : 1960 NEW VISIT: CHIEF COMPLAINT: Radicular left leg pain and weakness. 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 [...] imaging of the lumbar spine through the [employer] system, which confirms disk bulging at L2-3 [...] Lumbar disk protrusion. CC: AZIZA MILLER MD [address] [address] DAA:MEDQ C: R:06/07/18 12:40 CONFIRM#:[id number] documented in this encounter Plan of Treatment Upcoming Encounters Date Type Specialty Care Team Description 09/15/2022 Appointment Orthopedics Delgado Gottlieb MD [address] [place], [place] [address] (Wo rk) 10/08/2022 Appointment Orthopedics Delgado Gottlieb MD [address] [place], [place] [address] (Wo rk) 05/27/2023 Appointment [...] (HRC) documented in this encounter Care Teams Bag Adjuster Relationship Specialty Start Date End Date Ladan Song MD PCP - General Internal Medicine 08/18/17 09/29/21 documented as of this encounter
--- OUTSIDE RECORDS SUMMARY | 2022-08-19 10:49 | XMS_ITS | Encounter Summary ---
:1960 [facility] Address [address] [place] [address] Care Team Providers Name Role Phone Ladan Song MD Primary Care Provider Unavailable Reason for Visit Reason Comments ARM PAIN left Encounter Details Date Type Department Care Team Description 10/06/2017 Office Visit [facility] German Miller Hist [facility] surgery (Primary Dx) [address] [place] [address] [address] [place] [address] [place], [place] [phone] (Wo rk) Social History Tobacco Use Types [...] Miller MD Hand & Upper Extremity Surgeon Fast Brim Pouncer: Lalitha Watson Please contact Lalitha for all surgery scheduling and administrative questions at [phone] Hand Nurse: Leonardo Yao Please contact Leonardo for all medical related questions at [phone] Medication Requests: Prescriptions are not filled on Weekends or on Weekdays after 3:00PM For all medication refills: Request a refill using [employer] or contact your Pharmacy Please call [phone] to make future appointments. Follow up in 6 weeks as tolerated E CHEF documented in this encounter Progress Notes German Miller MD - 10/06/2017 9:00 AM CST [facility] Postoperative Follow-Up 10/06/2017 History of Present [...] (b) the recordis accurate. German Miller MD E CHEF documented in this encounter Plan of Treatment Upcoming Encounters Date Type Specialty Care Team Description 09/15/2022 Appointment Orthopedics Delgado Gottlieb MD [address] [place], [place] [address] (Wo rk) 10/08/2022 Appointment Orthopedics Delgado Gottlieb MD [address] [place], [place] [address] (Wo rk) 05/27/2023 Appointment Chemo Therapy/Infusion Services documented as of this encounter Visit Diagnoses Diagnosis History of elbow surgery - Primary Personal history of surgery to other org ans documented in this encounter Care Teams Top Hat Body Maker Relationship Specialty Start Date End Date Ladan Song MD PCP - General Internal Medicine 08/18/17 09/29/21 documented as of this encounter
--- OUTSIDE RECORDS SUMMARY | 2022-08-19 10:49 | XMS_ITS | Encounter Summary ---
:1960 Author [facility] Address [address], [place] [address] Care Team Providers Name Role Phone Ladan Song MD Primary Care Provider Unavailable Reason for Visit Procedure/Equipment (Routine) - Incomplete Specialty Diagnoses / Procedures Referred By Contact Refer red To Contact Procedures Cesar Scherer MD Foreign Image(S) CT Hip Lt [address] [facility] [address] [place], [place] [phone] Referral ID Status Reason Start Date Expiration Date Visits V isits Requested Authorized [id number] Incomplete 12/07/2020 03/08/2022 1 1 Encounter Details Date Type Department Care Team Description 08/30/2020 Ancillary Procedure [facility] Radiology PACS [place] [address] [address] [facility] [address] [place] [address] Social History Tobacco Use Types [...] 09/15/2022 Appointment Orthopedics Delgado Gottlieb MD [address] [place], [place] [address] (Wo rk) 10/08/2022 Appointment Orthopedics Delgado Gottlieb MD [address] [place], [place] [address] (Wo rk) 05/27/2023 Appointment Chemo Therapy/Infusion Services documented as of this encounter Procedures Procedure Name Priority Date/Time Associated Diagnosis Comme nts FOREIGN IMAGE(S) CT Routine 08/30/2020 12:05 AM R esults for this HIP LT SEAT JOINER CHAINSTITCH procedure are i n the results section. documented in this encounter Results Foreign Image(S) CT Hip Lt (08/30/2020 12:05 AM SEAT JOINER CHAINSTITCH) Specimen (Source) Anatomical Location Collection Method / [...] on filedocumented in this encounter Care Teams Negative Restorer Relationship Specialty Start Date End Date Ladan Song MD PCP - General Internal Medicine 08/18/17 09/29/21 documented as of this encounter
--- OUTSIDE RECORDS SUMMARY | 2022-08-19 10:49 | XMS_ITS | Encounter Summary ---
:1960 Author [facility] Address [address] [place] [address] Care Team Providers Name Role Phone Ladan Song MD Primary Care Provider Unavailable Reason for Visit Procedure/Equipment (Routine) - Incomplete Specialty Diagnoses / Procedures Referred By Contact Refer red To Contact Procedures German Miller MD Foreign Image(S) XR Elbow [address] [facility] [place] [address] 1 Referral ID Status Reason Start Date Expiration Date Visits V isits Requested Authorized [id number] Incomplete 04/08/2018 07/08/2019 1 1 Encounter Details Date Type Department Care Team Description 02/14/2018 Imaging Radiology PACS German Miller MD [address] [place] [address] [place] [address] (Wo rk) Social History Tobacco Use Types [...] Description 09/15/2022 Appointment Orthopedics Delgado Gottlieb MD [address] [place] [address] [place] [address] (Wo rk) 10/08/2022 Appointment Orthopedics Delgado Gottlieb MD [address] [place], [place] [address] (Wo rk) 05/27/2023 Appointment [...] on filedocumented in this encounter Care Teams Record Label Intern Relationship Specialty Start Date End Date Ladan Song MD PCP - General Internal Medicine 08/18/17 09/29/21 documented as of this encounter
--- OUTSIDE RECORDS SUMMARY | 2022-08-19 10:49 | XMS_ITS | Encounter Summary ---
:1960 [facility] Address [address] [address] Care Team Providers Name Role Phone Ladan Song MD Primary Care Provider Unavailable Reason for Visit Reason Comments Pre-procedure Call Encounter Details Date Type Department Care Team Description 07/01/2018 Telephone [facility] Vicky Barrios RN Pre-procedure Call [address] [place], [place] [address] Social History Tobacco Use Types [...] 09/15/2022 Appointment Orthopedics Delgado Gottlieb MD [address] [place] [address] (Gavi presley) 10/08/2022 Appointment Orthopedics Delgado Gottlieb MD [address] [place] [address] (Gavi presley) 05/27/2023 Appointment Chemo Therapy/Infusion Services documented as of this encounter Visit Diagnoses Not on filedocumented in this encounter Care Teams Rescue Boat Operator Relationship Specialty Start Date End Date Ladan Song MD PCP - General Internal Medicine 08/18/17 09/29/21 documented as of this encounter
--- OUTSIDE RECORDS SUMMARY | 2022-08-19 10:49 | XMS_ITS | Encounter Summary ---
:1960 Author [facility] Address [address] [place] [address] Care Team Providers Name Role Phone Ladan Song MD Primary Care Provider Unavailable Reason for Visit Reason Comments Elbow Problem left Encounter Details Date Type Department Care Team Description 04/08/2018 Office Visit [facility] German Miller, Cont usion of left CENTER elbow, initial [address] [facility] [address] [facility] [address] encounter (Primary [place], [place] [address] [place], [place] Dx) [phone] (Wo rk) Social History Tobacco Use Types [...] Miller MD Hand & Upper Extremity Surgeon Cloth Brushing And Sueding Supervisor: Lalitha Watson Please contact Lalitha for all surgery scheduling and administrative questions at [phone] Hand Nurse: Leonardo Yao Please contact Leonardo for all medical related questions at [phone] Medication Requests: Prescriptions are not filled on Weekends or on Weekdays after 3:00PM For all medication refills: Request a refill using [employer] or contact your Pharmacy Please call [phone] to make future appointments[address] Dr. 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 Denies any numbness or tingling. Physical [...] l to a spine physician here at [facility]. A referral to Dr. Wilson has [...] Description 09/15/2022 Appointment Orthopedics Delgado Gottlieb MD [address] [place] [address] (Gavi presley) 10/08/2022 Appointment Orthopedics Delgado Gottlieb MD [address] [place] [address] (Gavi presley) 05/27/2023 Appointment Chemo Therapy/Infusion Services documented as of this encounter Visit Diagnoses Diagnosis Contusion of left elbow, initial encount er - Primary documented in this encounter Care Teams Telemetry Tech Relationship Specialty Start Date End Date Ladan Song MD PCP - General Internal Medicine 08/18/17 09/29/21 documented as of this encounter
--- OUTSIDE RECORDS SUMMARY | 2022-08-19 10:49 | XMS_ITS | Encounter Summary ---
:1960 [facility] Address [address] [place] [address] Care Team Providers Name Role Phone Cintia Cobb MD Primary Care Provider [phone] Encounter Details Date Type Department Care Team Description 08/16/2019 Lab Requisition Religious Laboratory Aureliano Munoz, Encounter for [address] Ramirez Roach MD screening for [place] [address] [facility] res piratory [address] [facility] [phone] [place] [address] Social History Tobacco Use Types Packs/Day Years [...] 09/15/2022 Appointment Orthopedics Delgado Gottlieb MD [address] [facility] [place] [place] [address] (Gavi presley) 10/08/2022 Appointment Orthopedics Delgado Gottlieb MD [address] [facility] [place] [place] [address] (Wo rk) 05/27/2023 Appointment Chemo Therapy/Infusion Services documented as of this encounter Procedures Procedure Name Priority Date/Time Associated Diagnosis Comme nts TB GOLD, QUANTIFERON Routine 08/17/2019 11:32 Encounter for Re sults for this AM GLASS PRODUCTION MACHINE OPERATOR screening for procedure are in respiratory the results tuberculosis section. documented in this encounter Results (ABNORMAL) TB Gold, QuantiFERON Plus (08/17/2019 11:32 AM GLASS PRODUCTION MACHINE OPERATOR) [facility] Method Time Signature TB Gold, Indeterminate Negative 08/19/2019 [facility] QuantiFeron (A) 2:32 PM GLASS PRODUCTION MACHINE OPERATOR LABORATORY Plus TB Nil Value 0.04 08/19/2019 [facility] 2:32 PM GLASS PRODUCTION MACHINE OPERATOR LABORATORY TB1 Minus Nil <0.01 08/19/2019 [facility] Value 2:32 PM GLASS PRODUCTION MACHINE OPERATOR LABORATORY TB2 Minus Nil <0.01 08/19/2019 [facility] Value 2:32 PM GLASS PRODUCTION MACHINE OPERATOR LABORATORY Mitogen Minus 0.39 08/19/2019 [facility] Nil Value 2:32 PM GLASS PRODUCTION MACHINE OPERATOR LABORATORY Specimen Anatomical Collection Method / Collection Time Recei shahid Time (Source) Location / Volume Laterality Blood Venipuncture / 08/17/2019 11:32 9 2:24 Unknown AM GLASS PRODUCTION MACHINE OPERATOR PM GLASS PRODUCTION MACHINE OPERATOR Narrative [facility] - 08/19/2019 2:32 P M GLASS PRODUCTION MACHINE OPERATOR Nil ?TB1-Nil ? TB2-Nil ?Mitogen-Nil ??Result ?Interpretation [...] Organization Address City/State/ZIP Code Phon e Number [facility] [address] [place] [address] documented in this encounter Visit Diagnoses Diagnosis Encounter for screening for respiratory tuberculosis Screening examination for pulmonary tube rculosis documented in this encounter Care Teams Impregnator Operator Relationship Specialty Start Date End Date Cintia Cobb MD PCP - General Family Practice 09/30/21 documented as of this encounter
--- OUTSIDE RECORDS SUMMARY | 2022-08-19 10:49 | XMS_ITS | Encounter Summary ---
:1960 Author Organization [facility] Address [address] [place] [address] Care Team Providers Name Role Phone Ladan Song MD Primary Care Provider Unavailable Reason for Visit Reason Comments Hand Therapy Encounter Details Date Type Department Care Team Description 09/08/2017 Office Visit [facility] Jerad Bell, Cubital tunnel syndrome on l eft (Primary Dx); [address] [facility] OTR/L After[facility]; Drive [address] [facility] [place] [address] [phone] Social History Tobacco Use Types Packs/Day Years [...] past medical historyon file. 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 TREATMENT INTERVENTION: Therapeutic Exercise CPT 95738 (25 minutes) Exercise: All measurements updated today. Edema Management: Pt reports he is satisfied with his current tubi-etcher apprentice photoengraving supply and does not need additional. Scar [...] long-term goals. The patient is discharged from [facility] hand therapy with a home exercise program. [...] Therapist Signature: Jerad Bell MS, OTR/L # [id number] Visit #3 Payor: BCBS / Plan: BCBS PMAP BLUE ADVANTAGE / Product Type: Medicaid / ECTS MANAGER documented in this encounter Plan of Treatment Upcoming Encounters Date Type Specialty Care Team Description 09/15/2022 Appointment Orthopedics Delgado Gottlieb MD [address] [place] [address], [place] [address] (Wo rk) 10/08/2022 Appointment Orthopedics Delgado Gottlieb MD [address] [place], [place] [address] (Wo rk) 05/27/2023 Appointment [...] joint documented in this encounter Care Teams Internet Merchant Relationship Specialty Start Date End Date Ladan Song MD PCP - General Internal Medicine 08/18/17 09/29/21 documented as of this encounter
--- OUTSIDE RECORDS SUMMARY | 2022-08-19 10:49 | XMS_ITS | Encounter Summary ---
:1960 Author Organization [facility] Address [address], [place] [address] Care Team Providers Name Role Phone Ladan Song MD Primary Care Provider Unavailable Reason for Referral (Routine) - Closed Specialty Diagnoses / Procedures Referred By Contact Refer red To Contact Diagnoses Spinal stenosis of lumbar region with neurogenic claudication Wellington Donaldson MD Procedures Dexamethasone Sodium Phos [address] [place] [address] 540 17 Referral ID Status Reason Start Date Expiration Date Visits Requ ested Visits Authorized [id number] Closed 01/15/2021 04/16/2022 1 1 Reason for Visit Reason Comments Procedure Procedure/Equipment (Routine) - Incomplete Specialty Diagnoses / Procedures Referred By Contact Refer red To Contact Diagnoses Spinal stenosis of lumbar region with neurogenic claudication Cesar Scherer MD Procedures FL C Arm 20 Pain Management [address] [place] [phone] Referral ID Status Reason Start Date Expiration Date Visits V isits Requested Authorized [id number] Incomplete 12/25/2020 03/26/2022 1 1 Encounter Details Date Type Department Care Team Description 01/15/2021 Procedure Visit [facility] Cesar Scherer MD [address] [facility] [address] [place] [address] Procedure 8[address] [facility] Wellington Donaldson MD [address] [place] [address] [place], [place] [address] 1, Jean Jose Antonio Rn [phone] Social History Tobacco Use Types Packs/Day Years [...] Dr. Scherer in 10-14 days. Please call [phone] to schedule an appointment if you do not already have one. Lumbar Epidural Injection Post-Procedure Instructions: ?? Rest today, you may resume your normal activities tomorrow (Physical Therapy & daycare provider can also be resumed next day). ?? [...] and Anesthesiologist Please contact the Pain Nurse ([phone]) for all medical/procedural questions regarding your care at the [facility] Please contact our Export Traffic Department Manager ([phone]) for all administrative/scheduling questions related to the [...] completed, patient verbalizes understanding. 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 Consent per MD. Snehal [...] with the patient. The patient's / responsible democrat's questions were answered. The patient / responsible democrat appeared to understand and chose to proceed. Prior to the procedure a time out was completed , verifying correct patient, procedure, site, positioning, and implants and/or special equipment. The patient was taken to the procedure room and positioned prone on the fluoroscopy table. Then a car unloader film was taken to identify the correct [...] 09/15/2022 Appointment Orthopedics Delgado Gottlieb MD [address] [place], [place] [address] (Gavi presley) 10/08/2022 Appointment Orthopedics Delgado Gottlieb MD [address] [place], [place] [address] (Gavi presley) 05/27/2023 Appointment [...] documented in this encounter Care Teams Business Performance Specialist Relationship Specialty Start Date End Date Ladan Song MD PCP - General Internal Medicine 08/18/17 09/29/21 documented as of this encounter
--- OUTSIDE RECORDS SUMMARY | 2022-08-19 10:49 | XMS_ITS | Encounter Summary ---
:1960 [facility] Address [address] [place] [address] Care Team Providers Name Role Phone Ladan Song MD Primary Care Provider Unavailable Reason for Referral Procedure/Equipment (Routine) - Closed Specialty Diagnoses / Procedures Referred By Contact Refer red To Contact Diagnoses Spinal stenosis of lumbar region with neurogenic claudication Cesar Scherer MD Procedures CT Lumbar Spine Post Myelogram [address] [facility] [address] [place] [address] Referral ID Status Reason Start Date Expiration Date Visits Requ ested Visits Authorized [id number] Closed 03/12/2021 06/11/2022 1 1 Procedure/Equipment (Routine) - Incomplete Specialty Diagnoses / Procedures Referred By Contact Refer red To Contact Diagnoses Spinal stenosis of lumbar region with neurogenic claudication Cesar Scherer MD Procedures [place] Myelogram Lumbar Spine [address] [place] [address] [place] [address] Referral ID Status Reason Start Date Expiration Date Visits V isits Requested Authorized [id number] Incomplete 03/12/2021 06/11/2022 1 1 Reason for Visit Reason Comments QUESTIONS, GENERAL Encounter Details Date Type Department Care Team Description 03/12/2021 Telephone [facility] Cesar Champagne, QUESTIONS, GENERAL 8[address] [facility] [place], [place] [address] [address] [facility] [phone] [address] [place] [address] (Wo rk) Social History Tobacco Use Types [...] a left L3-4 transforaminal injection here at [facility]. If this is not therapeutically beneficial for [...] 09/15/2022 Appointment Orthopedics Delgado Gottlieb MD [address] [place] [address] (Gavi presley) 10/08/2022 Appointment Orthopedics Delgado Gottlieb MD [address] [place] [address] (Gavi presley) 05/27/2023 Appointment Chemo [...] claudication documented in this encounter Care Teams Shipfitter Relationship Specialty Start Date End Date Ladan Song MD PCP - General Internal Medicine 08/18/17 09/29/21 documented as of this encounter
--- OUTSIDE RECORDS SUMMARY | 2022-08-19 10:49 | XMS_ITS | Encounter Summary ---
:1960 Author Organization [facility] Address [address] [place] [address] Care Team Providers Name Role Phone Ladan Song MD Primary Care Provider Unavailable Reason for Visit Reason Comments NURSE PREP FOR PROCEDURE Encounter Details Date Type Department Care Team Description 03/25/2021 Telephone [facility] Crystal Olsen, NURSE PREP FOR PROCEDURE [address] RN [place], [place] [address] Social History Tobacco Use Types Packs/Day Years [...] called with instructions for Myelogram scheduled 03/27/2021 *Director Of Procurement can park in the [place] and bring in parking ticket OR clamp truck driver can drop pt off at [...] at home *Need to have an Adult clamp truck driver (No public transportation unless accompanied by responsible adult) *Need an adult at home with you for 12 hours after procedure (only if cervical). *Call [phone] if have questions documented in this encounter Plan of Treatment Upcoming Encounters Date Type Specialty Care Team Description 09/15/2022 Appointment Orthopedics Delgado Gottlieb MD [address] [place], [place] [address] (Gavi presley) 10/08/2022 Appointment Orthopedics Delgado Gottlieb MD [address] [place], [place] [address] (Gavi presley) 05/27/2023 Appointment Chemo Therapy/Infusion Services documented as of this encounter Visit Diagnoses Not on filedocumented in this encounter Care Teams Instrument Room Technician Relationship Specialty Start Date End Date Ladan Song MD PCP - General Internal Medicine 08/18/17 09/29/21 documented as of this encounter
--- OUTSIDE RECORDS SUMMARY | 2022-08-19 10:49 | XMS_ITS | Encounter Summary ---
:1960 Author Organization [facility] Address [address] [facility] [address] Care Team Providers Name Role Phone Ladan Song MD Primary Care Provider Unavailable Reason for Referral (Routine) - Closed Specialty Diagnoses / Procedures Referred By Contact Refer red To Contact Diagnoses Lumbar radiculopathy Juan Miguel Buckley MD Procedures Dexamethasone [address] [place] [address] Dr [place] [address] Referral ID Status Reason Start Date Expiration Date Visits Requ ested Visits Authorized [id number] Closed 07/07/2018 10/06/2019 1 1 Reason for Visit Reason Comments Procedure Procedure/Equipment (Routine) - Incomplete Specialty Diagnoses / Procedures Referred By Contact Refer red To Contact Diagnoses Low back pain, unspecified back pain laterality, unspecified chronicity, with sciatica presence unspecified (HRC) Giovanni Wilson MD Procedures FL C Arm 20 Pain Management [address] [place] [address] Dr [place] [address] Referral ID Status Reason Start Date Expiration Date Visits V isits Requested Authorized [id number] Incomplete 06/07/2018 09/06/2019 1 1 Encounter Details Date Type Department Care Team Description 07/07/2018 Procedure Visit [facility] Giovanni Wilson MD [address] [facility] [place] [address] [place] [address] Juan Miguel Buckley MD [address] [facility] [place] [address] [address] [place] 1411 1 3, Jean Jose Antonio Martinez [phone] Social History Tobacco Use Types Packs/Day Years [...] Dr. Jamal Wilson in 10-14 days; call [phone] to schedule an appointment if you do not already have one. Lumbar Epidural Injection Post-Procedure Instructions: ?? Rest today, you may resume your normal activities tomorrow (Physical Therapy & wound care center consultant can also be resumed next day). ?? [...] and Anesthesiologist Please contact the Pain Nurse ([phone]) for all medical/procedural questions regarding your care at the [facility] Please contact our Ep Specialist ([phone]) for all administrative/scheduling questions related to the [...] completed, patient verbalizes understanding. 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 Snehal [...] prone on the fluoroscopy table. Then a security system analyst film was taken to identify the correct [...] well and was discharged home, with a hazmat truck driver, in stable condition with post [...] Appointment Orthopedics Delgado Gottlieb MD [address] [place], [place] [address] (Wo rk) 10/08/2022 Appointment Orthopedics Delgado Gottlieb MD [address] [place], [place] [address] (Wo rk) 05/27/2023 Appointment [...] documented in this encounter Care Teams Clinical Asst Relationship Specialty Start Date End Date Ladan Song MD PCP - General Internal Medicine 08/18/17 09/29/21 documented as of this encounter
--- OUTSIDE RECORDS SUMMARY | 2022-08-19 10:49 | XMS_ITS | Encounter Summary ---
:1960 Author Organization [facility] Address [address] [place] [address] Care Team Providers Name Role Phone Ladan Song MD Primary Care Provider Unavailable Reason for Visit Reason Comments ARM PAIN post op Encounter Details Date Type Department Care Team Description 11/17/2017 Office Visit German Wei Status post musculoskeletal system surgery (Primary Dx); MELANIA CMD Aftercare following surgery of the [facility] [address] [facility] [address] [place] [address] [place], [place] [address] [phone] Social History Tobacco Use Types Packs/Day Years [...] Miller MD Hand & Upper Extremity Surgeon Head Rigger: Lalitha Watson Please contact Lalitha for all surgery scheduling and administrative questions at [phone] Hand Nurse: Leonardo Yao Please contact Leonardo for all medical related questions at [phone] Medication Requests: Prescriptions are not filled on Weekends or on Weekdays after 3:00PM For all medication refills: Request a refill using [employer] or contact your Pharmacy Please call [phone] to make future appointments. Follow up as needed documented in this encounter Progress Notes German Miller MD - 11/17/2017 9:00 AM CDT [facility] Postoperative Follow-Up 11/17/2017 History of Present Illness: [...] 09/15/2022 Appointment Orthopedics Delgado Gottlieb MD [address] [place], [place] [address] (Gavi presley) 10/08/2022 Appointment Orthopedics Delgado Gottlieb MD [address] [place], [place] [address] (Gavi presley) 05/27/2023 Appointment Chemo Therapy/Infusion Services documented as of this encounter Visit Diagnoses Diagnosis Status post musculoskeletal system surge ry - Primary Aftercare following surgery of the [facility] Aftercare following [facility], N[facility] documented in this encounter Care Teams Barback Relationship Specialty Start Date End Date Ladan Song MD PCP - General Internal Medicine 08/18/17 09/29/21 documented as of this encounter
--- OUTSIDE RECORDS SUMMARY | 2022-08-19 10:49 | XMS_ITS | Encounter Summary ---
:1960 [facility] Address [address] [place] [address] Care Team Providers Name Role Phone Ladan Song MD Primary Care Provider Unavailable Reason for Visit Reason Comments Surgery Questions Encounter Details Date Type Department Care Team Description 12/03/2020 Telephone [facility] Rudy Horton, Surgery Questions 8100 [facility] [place], [place] [address] [address] [address] [place] [address] (Wo rk) Social History Tobacco Use Types [...] he had a recent Xray done at [place] that shows ruptures at L3, L4 and [...] Center 12/25/2020 4:10 PM Cesar Scherer MD [facility] Advised patient to have his Xrays from [place] released. Patient requesting to call phone if [...] he had a recent Xray done at [place] that shows ruptures at L3, L4 and L5 so thinks he needs surgery. Pt states that if the recovery time would be more thana month he would need to figure something out. Pt did not want to schedule an appt until he talked to someone to get details. Please call pt at [phone], no VM is available so hopefully he can takethe call when it comes through. When did the issue start: ongoing Have you been seen for this recently?: No Last saw Dr Wilson in 2018. [Trigonometry Tutor/Appt Center: If yes, please include date and provider.] Is it okay to leave detailed message on your voicemail? no [Trigonometry Tutor/Appt Center: If this call is after 3 p.m., communicate to patient: If we are not able to get back to you by the end of the day and your symptoms worsen please contact the Careline] documented in this encounter Plan of Treatment Upcoming Encounters Date Type Specialty Care Team Description 09/15/2022 Appointment Orthopedics Delgado Gottlieb MD [address] [place] [address] (Gavi presley) 10/08/2022 Appointment Orthopedics Delgado Gottlieb MD [address] [place], [place] [address] (Gavi presley) 05/27/2023 Appointment Chemo Therapy/Infusion Services documented as of this encounter Visit Diagnoses Not on filedocumented in this encounter Care Teams Milker Machine Relationship Specialty Start Date End Date Ladan Song MD PCP - General Internal Medicine 08/18/17 09/29/21 documented as of this encounter
--- OUTSIDE RECORDS SUMMARY | 2022-08-19 10:49 | XMS_ITS | Encounter Summary ---
:1960 Author Organization [facility] Address [address] [place] [address] Care Team Providers Name Role Phone Ladan Song MD Primary Care Provider Unavailable Reason for Visit (Routine) - Incomplete Specialty Diagnoses / Procedures Referred By Contact Refer red To Contact Procedures Giovanni Wilson MD Foreign Image(s) CT L-Spine [address] [place] [address] Dr [address] [place], [place] [address] Referral ID Status Reason Start Date Expiration Date Visits V isits Requested Authorized [id number] Incomplete 06/07/2018 09/06/2019 1 1 Encounter Details Date Type Department Care Team Description 04/21/2018 Imaging Radiology PACS Giovanni Wilson MD [address] [place] [address] [place] [address] (Gavi rk) Social History Tobacco Use Types [...] 09/15/2022 Appointment Orthopedics Delgado Gottlieb MD [address] [place] [address] [place] [address] (Wo rk) 10/08/2022 Appointment Orthopedics Delgado Gottlieb MD [address] [place], [place] [address] (Wo rk) 05/27/2023 Appointment [...] provided, they will be located in the tn chai's chart under the Media or Imaging tab. Giovanni Wilson MD RAD NON-REPORTABLES Performing Organization Address City/State/ZIP Code Phon e Number POCT PN POCT documented in this encounter Visit Diagnoses Not on filedocumented in this encounter Care Teams Belt Puncher Relationship Specialty Start Date End Date Ladan Song MD PCP - General Internal Medicine 08/18/17 09/29/21 documented as of this encounter
--- OUTSIDE RECORDS SUMMARY | 2022-08-19 10:49 | XMS_ITS | Encounter Summary ---
:1960 Author Organization [facility] Address [address] [place] [address] Care Team Providers Name Role Phone Ladan Song MD Primary Care Provider Unavailable Reason for Visit Reason Comments Orders Needed Encounter Details Date Type Department Care Team Description 04/10/2020 Telephone [facility] Giovanni Granger MD Orders Needed [address] [facility] [place] [address] [place] [address] [phone] (Wo rk) Social History Tobacco Use Types [...] 04/11/2020 4:00 PM CDT Order sent to [facility]. Left VM for patient regarding this and [facility] number to call to schedule. Radha Solo [...] and advised will need to speak with crew car driver. Eli Mercado - 04/10/2020 11:42 AM CDT [...] off to attend a in the morning. [Branch Examiner/Appt Center: If this call is after 3 p.m., communicate to patient: If we are not able to get back to you by the end of the day and your symptoms worsen please contact the Careline] [Branch Examiner: Please inform patient that a referral does not guarantee insurance coverage. Patients should call the member services number on the back of their insurance ID card to understand whatcoverage for the services they are requesting.] documented in this encounter Plan of Treatment Upcoming Encounters Date Type Specialty Care Team Description 09/15/2022 Appointment Orthopedics Delgado Gottlieb MD [address] [place], [place] [address] (Gavi presley) 10/08/2022 Appointment Orthopedics Delgado Gottlieb MD [address] [place], [place] [address] (Gavi presley) 05/27/2023 Appointment Chemo Therapy/Infusion Services documented as of this encounter Visit Diagnoses Diagnosis Other intervertebral disc displacement, lumbar region (HRC) - Primary Displacement of lumbar intervertebral di sc (HRC) Displacement of lumbar intervertebral di sc without myelopathy documented in this encounter Care Teams Journeyman Power Plant Operator Relationship Specialty Start Date End Date Ladan Song MD PCP - General Internal Medicine 08/18/17 09/29/21 documented as of this encounter
--- OUTSIDE RECORDS SUMMARY | 2022-08-19 10:49 | XMS_ITS | Encounter Summary ---
:1960 Author Organization [facility] Address [address] [place] [address] Care Team Providers Name Role Phone Ladan Song MD Primary Care Provider Unavailable Reason for Visit (Routine) - Incomplete Specialty Diagnoses / Procedures Referred By Contact Refer red To Contact Procedures Cesar Scherer MD Foreign Image(s) CT L-Spine [address] [place], [place] [phone] Referral ID Status Reason Start Date Expiration Date Visits V isits Requested Authorized [id number] Incomplete 12/07/2020 03/08/2022 1 1 Encounter Details Date Type Department Care Team Description 08/30/2020 Ancillary Procedure [facility] PACS [place] [address] [place] [address] Social History Tobacco Use Types [...] 09/15/2022 Appointment Orthopedics Delgado Gottlieb MD [address] [place], [place] [address] (Gavi rk) 10/08/2022 Appointment Orthopedics Delgado Gottlieb MD [address] [place], [place] [address] (Gavi presley) 05/27/2023 Appointment Chemo Therapy/Infusion Services documented as of this encounter Procedures Procedure Name Priority Date/Time Associated Diagnosis Comme nts FOREIGN IMAGE(S) CT Routine 08/30/2020 12:00 AM R esults for this L-SPINE W/WO IV RESEARCH PROJECT COORDINATOR procedure ar e in CONT the results section. documented in this encounter Results Foreign Image(s) CT L-Spine W/WO IV Cont (08/30/2020 12:00 AM RESEARCH PROJECT COORDINATOR) Specimen (Source) Anatomical Location Collection Method [...] on filedocumented in this encounter Care Teams Naturalist Relationship Specialty Start Date End Date Ladan Song MD PCP - General Internal Medicine 08/18/17 09/29/21 documented as of this encounter
--- OUTSIDE RECORDS SUMMARY | 2022-08-19 10:49 | XMS_ITS | Encounter Summary ---
:1960 Author [facility] Address [address] [place] [address] Care Team Providers Name Role Phone Ladan Song MD Primary Care Provider Unavailable Reason for Visit Reason Comments Pre-procedure Call Encounter Details Date Type Department Care Team Description 01/09/2021 Telephone [facility] Luz Wei, Pre-procedure Call [address] [place], [place] [address] Social History Tobacco Use Types [...] Description 09/15/2022 Appointment Orthopedics Delgado Gottlieb MD [address] [place] [phone] (Gavi presley) 10/08/2022 Appointment Orthopedics Delgado Gottlieb MD [address] [place] [address] (Gavi presley) 05/27/2023 Appointment Chemo Therapy/Infusion Services documented as of this encounter Visit Diagnoses Not on filedocumented in this encounter Care Teams Senior Web Developer Relationship Specialty Start Date End Date Ladan Song MD PCP - General Internal Medicine 08/18/17 09/29/21 documented as of this encounter
--- OUTSIDE RECORDS SUMMARY | 2022-08-19 10:49 | XMS_ITS | Encounter Summary ---
:1960 Author Organization [facility] Address [address] [place] [address] Care Team Providers Name Role Phone Ladan Song MD Primary Care Provider Unavailable Reason for Referral Procedure/Equipment (Routine) - Incomplete Specialty Diagnoses / Procedures Referred By Contact Refer red To Contact Diagnoses Spinal stenosis of lumbar region with neurogenic claudication Cesar Scherer MD Procedures FL C Arm 20 Pain Management [address] [address] Referral ID Status Reason Start Date Expiration Date Visits V isits Requested Authorized [id number] Incomplete 12/25/2020 03/26/2022 1 1 Reason for Visit Reason Comments Back Problem Low back Left leg pain Consult/Transfer Care (Routine) - Closed Specialty Diagnoses / Procedures Referred By Contact Refer red To Contact Orthopedics Diagnoses Low back pain (HRC) Spondylosis without myelopathy or radiculopathy, lumbar region (HRC) Radiculopathy, lumbar region Christian Gonzalez II [facility] [address] [place] [address] Referral ID Status Reason Start Date Expiration Date Visits Requ ested Visits Authorized [id number] Closed 12/05/2020 03/06/2022 1 1 Encounter Details Date Type Department Care Team Description 12/25/2020 Office Visit Cesar Reynolds Spinal stenosis of [place] MD Terri lumbar region with [address] neurogenic claudication [place], [place] [address] [address] (Primary Dx) [phone] [place] [address] Social History Tobacco Use Types [...] 12/25/2020 12:00 AM CDT CARLYLELAZ J CSN: [id number] CLINIC NOTE DATE OF SERVICE: 12/25/2020 : [...] SOCIAL HISTORY: 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 He has worked for [employer] since 1952. Lives at home with his [...] Luna's lumbar spine is available for review. [employer] PACS system does reveal significant spinal stenosis [...] FREDDY GAO PA-C Staff: MD ENRIQUE BROWN/JOSEPH /[id number] documented in this encounter Plan of Treatment Upcoming Encounters Date Type Specialty Care Team Description 09/15/2022 Appointment Orthopedics Delgado Gottlieb MD [address] [place], [place] [address] (Wo rk) 10/08/2022 Appointment Orthopedics Delgado Gottlieb MD [address] [place], [place] [address] (Gavi rk) 05/27/2023 Appointment [...] claudication documented in this encounter Care Teams Cook Dessert Relationship Specialty Start Date End Date Ladan Song MD PCP - General Internal Medicine 08/18/17 09/29/21 documented as of this encounter
--- OUTSIDE RECORDS SUMMARY | 2022-08-19 10:49 | XMS_ITS | Encounter Summary ---
:1960 Author Organization [facility] Address [address] [place] [address] Care Team Providers Name Role Phone aLdan Song MD Primary Care Provider Unavailable Reason for Visit Reason Comments BACK PAIN, LOW Encounter Details Date Type Department Care Team Description 07/22/2018 [facility] Soumya disc displacement, 8[address] [facility] [address] [place] [address] lumbar region (Primary [place], [place] Dx) [address] [phone] Social History Tobacco Use Types Packs/Day Years [...] this encounter Patient Instructions Patient InstructionsEngeCassi torres, INSPECTOR HOT FORGINGS - 07/22/2018 8:[address] Giovanni Wilson MD Orthopeadic Spine Woodworking Machine Setter: Anya Pittman Please contact Anya for all administrative questions at [phone] Please contact the Spine Nurse for all medical related questions at [phone] Office Hours: Thursday-Thursday and AM Medication Requests: Prescriptions are not filled on Weekends or on Weekdays after 3:00PM For all medication refills: Request a refill using youcalchart or contact your Pharmacy R ENGINEERING TEACHER documented in this encounter Progress Notes Giovanni Wilson MD - 07/22/2018 8:22 AM CST NAME: LAZ LUNA MR#: [id number] CSN: [id number] AUTHENTICATING CLINICIAN: Giovanni Wilson MD CONFIRM #: [id number] LOC: 711 CLINIC PROGRESS NOTE DATE OF VISIT: 07/22/2018 : 1960 CHIEF COMPLAINT: Follow up lumbar disk protrusion. 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 DAA:MEDQ C: R:07/22/18 11:28 CONFIRM#:[id number] R ENGINEERING TEACHER documented in this encounter Plan of Treatment Upcoming Encounters Date Type Specialty Care Team Description 09/15/2022 Appointment Orthopedics Delgado Gottlieb MD [address] [place], [place] [address] (Wo rk) 10/08/2022 Appointment Orthopedics Delgado Gottlieb MD [address] [place], [place] [address] (Wo rk) 05/27/2023 Appointment Chemo Therapy/Infusion Services documented as of this encounter Visit Diagnoses Diagnosis Other intervertebral disc displacement, lumbar region (HRC) - Primary documented in this encounter Care Teams Strategy Analyst Relationship Specialty Start Date End Date Ladan Song MD PCP - General Internal Medicine 08/18/17 09/29/21 documented as of this encounter
--- OUTSIDE RECORDS SUMMARY | 2022-08-19 10:49 | XMS_ITS | Encounter Summary ---
:1960 [facility] Address [address], [place] [address] Care Team Providers Name Role Phone Ladan Song MD Primary Care Provider Unavailable Reason for Referral Procedure/Equipment (Routine) - Closed Specialty Diagnoses / Procedures Referred By Contact Refer red To Contact Diagnoses Spinal stenosis of lumbar region with neurogenic claudication Cesar Scherer MD Procedures CT Lumbar Spine Post Myelogram [address] [facility] [address] [place] [address] Referral ID Status Reason Start Date Expiration Date Visits Requ ested Visits Authorized [id number] Closed 03/12/2021 06/11/2022 1 1 Procedure/Equipment (Routine) - Incomplete Specialty Diagnoses / Procedures Referred By Contact Refer red To Contact Diagnoses Spinal stenosis of lumbar region with neurogenic claudication Cesar Scherer MD Procedures [place] Myelogram Lumbar Spine [address] [facility] [address] [place] [address] Referral ID Status Reason Start Date Expiration Date Visits V isits Requested Authorized [id number] Incomplete 03/12/2021 06/11/2022 1 1 Encounter Details Date Type Department Care Team Description 03/27/2021 Hospital Encounter [facility] [place] [address] [place] [address] Spinal stenosis of Center Procedural Edward Ardon MD [address] [place] [address] lumbar region with Area neurogenic [address] [place], [place] [id number] Social History Tobacco Use Types Packs/Day Years [...] in 24 hours cyanocobalamin 3 10/28/2016 06/26/2021 ([id number]) 1000 MCG/ML injection DULoxetine (CYMBALTA) Take 20 [...] 09/15/2022 Appointment Orthopedics Delgado Gottlieb MD [address] [place] [phone] (Gavi presley) 10/08/2022 Appointment Orthopedics Delgado Gottlieb MD [address] [place] [phone] (Gavi presley) 05/27/2023 Appointment Chemo [...] (Given - Provider: Edna Vizcaino - Comment: [facility] [phone] [id number]) 10 mL, Intrathecal, ONCE, On Thu03/27/21 at 0945, For 1 dose, Ra diology documented in this encounter Care Teams Pillow Agent Relationship Specialty Start Date End Date Ladan Song MD PCP - General Internal Medicine 08/18/17 09/29/21 documented as of this encounter
--- OUTSIDE RECORDS SUMMARY | 2022-08-19 10:49 | XMS_ITS | Encounter Summary ---
:1960 Author Organization [facility] Address [address] [place] [address] Care Team Providers Name Role Phone Ldaan Song MD Primary Care Provider Unavailable Reason for Visit Reason Comments Phone Call From Patient Encounter Details Date Type Department Care Team Description 01/29/2021 Telephone [facility] Cesar Champagne Phone Call From Patient 8100 [facility] MD [place], [place] [address] [address] [phone] [place] [address] Social History Tobacco Use Types Packs/Day [...] 09/15/2022 Appointment Orthopedics Delgado Gottlieb MD [address] [place], [place] [address] (Gavi presley) 10/08/2022 Appointment Orthopedics Delgado Gottlieb MD [address] [place], [place] [address] (Gavi presley) 05/27/2023 Appointment Chemo Therapy/Infusion Services documented as of this encounter Visit Diagnoses Not on filedocumented in this encounter Care Teams Rouge Sifter And Miller Relationship Specialty Start Date End Date Ladan Song MD PCP - General Internal Medicine 08/18/17 09/29/21 documented as of this encounter
--- OUTSIDE RECORDS SUMMARY | 2022-08-19 10:49 | XMS_ITS | Encounter Summary ---
:1960 Author Organization [facility] Address [address] [place] [address] Care Team Providers Name Role Phone Ladan Song MD Primary Care Provider Unavailable Reason for Visit Reason Comments QUESTIONS, GENERAL Encounter Details Date Type Department Care Team Description 03/12/2021 Telephone [facility] Cesar Champagne, QUESTIONS, GENERAL 8[address] [facility] [place], [place] [address] [address] [phone] [place] [phone] (Wo rk) Social History Tobacco Use [...] issues again and declined to giveinformation to telegraphic typewriter mechanic. 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 documented in this encounter Plan of Treatment Upcoming Encounters Date Type Specialty Care Team Description 09/15/2022 Appointment Orthopedics Delgado Gottlieb MD [address] [place] [address] (Gavi presley) 10/08/2022 Appointment Orthopedics Delgado Gottlieb MD [address] [place] [phone] (Gavi presley) 05/27/2023 Appointment Chemo Therapy/Infusion Services documented as of this encounter Visit Diagnoses Not on filedocumented in this encounter Care Teams Financial Institution Vice President Relationship Specialty Start Date End Date Ladan Song MD PCP - General Internal Medicine 08/18/17 09/29/21 documented as of this encounter
--- OUTSIDE RECORDS SUMMARY | 2022-08-19 10:49 | XMS_ITS | Encounter Summary ---
:1960 [facility] Address [address] [place] [address] Care Team Providers Name Role Phone Ladan Song MD Primary Care Provider Unavailable Reason for Visit Reason Comments Post Visit Follow Up Phone Call Encounter Details Date Type Department Care Team Description 01/16/2021 Telephone [facility] Naima Narayan, Post Visit Follow Up 8100 [facility] RN Phone Call [place], [place] [address] Social History Tobacco Use Types [...] 09/15/2022 Appointment Orthopedics Delgado Gottlieb MD [address] [place], [place] [address] (Gavi presley) 10/08/2022 Appointment Orthopedics Delgado Gottlieb MD [address] [place], [place] [address] (Gavi presley) 05/27/2023 Appointment Chemo Therapy/Infusion Services documented as of this encounter Visit Diagnoses Not on filedocumented in this encounter Care Teams Technical Operator Relationship Specialty Start Date End Date Ladan Song MD PCP - General Internal Medicine 08/18/17 09/29/21 documented as of this encounter
--- OUTSIDE RECORDS SUMMARY | 2022-08-19 10:49 | XMS_ITS | Encounter Summary ---
:1960 Author [facility] Address [address] [place] [address] Care Team Providers Name Role Phone Ladan Song MD Primary Care Provider Unavailable Reason for Visit Reason Comments Appt. Work In Request Encounter Details Date Type Department Care Team Description 03/24/2018 Telephone [facility] German Miller, Appt . Work In Request CENTER [address] [place] [address] [place] [address] [place], [place] [phone] (Wo rk) Social History Tobacco Use Types [...] back with further questions or concerns to [phone]. Freda Yao RN - 03/24/2018 9:34 AM [...] bothering him. He did go to the [facility]. They did not see a fx. [...] 09/15/2022 Appointment Orthopedics Delgado Gottlieb MD [address] [place] [address] (Gavi presley) 10/08/2022 Appointment Orthopedics Delgado Gottlieb MD [address] [place] [address] (Gavi presley) 05/27/2023 Appointment Chemo Therapy/Infusion Services documented as of this encounter Visit Diagnoses Not on filedocumented in this encounter Care Teams Freezing Machine Operator Relationship Specialty Start Date End Date Ladan Song MD PCP - General Internal Medicine 08/18/17 09/29/21 documented as of this encounter
--- OUTSIDE RECORDS SUMMARY | 2022-08-19 10:49 | XMS_ITS | Encounter Summary ---
:1960 Author Organization [facility] Address [address] [place] [address] Care Team Providers Name Role Phone Ladan Song MD Primary Care Provider Unavailable Reason for Visit Reason Comments Post Visit Follow Up Phone Call Encounter Details Date Type Department Care Team Description 07/08/2018 Telephone [facility] Garth White RN Post Visit Follow Up [address] Phone Call [place], [place] [address] [place], [place] [phone] (Gavi presley) Social History Tobacco Use Types [...] 09/15/2022 Appointment Orthopedics Delgado Gottlieb MD [address] [place], [place] [address] (Gavi rk) 10/08/2022 Appointment Orthopedics Delgado Gottlieb MD [address] [place], [place] [address] (Gavi rk) 05/27/2023 Appointment Chemo Therapy/Infusion Services documented as of this encounter Visit Diagnoses Not on filedocumented in this encounter Care Teams Ror Engineer Relationship Specialty Start Date End Date Ladan Song MD PCP - General Internal Medicine 08/18/17 09/29/21 documented as of this encounter
--- OUTSIDE RECORDS SUMMARY | 2022-08-19 10:50 | XMS_ITS | Encounter Summary ---
:1960 Author Organization [facility] Address [address], [place] [address] Care Team Providers Name Role Phone Eric Bower MD Primary Care Provider Reason for Referral Procedure/Equipment (Routine) - Incomplete Specialty Diagnoses / Procedures Referred By Contact Refer red To Contact Diagnoses Arthritis of left elbow German Miller MD Procedures CT Elbow Lt WO IV Cont [address] [place] [address] Referral ID Status Reason Start Date Expiration Date Visits V isits Requested Authorized [id number] Incomplete 11/03/2016 02/02/2018 1 1 UNTING TEACHER Procedure/Equipment (Routine) - Incomplete Specialty Diagnoses / Procedures Referred By Contact Refer red To Contact Diagnoses Arthritis of left elbow German Miller MD Procedures XR Elbow Lt 3+ Views [address] [place] [address] Referral ID Status Reason Start Date Expiration Date Visits V isits Requested Authorized [id number] Incomplete 11/03/2016 02/02/2018 1 1 UNTING TEACHER Reason for Visit Reason Comments Elbow Pain Left Encounter Details Date Type Department Care Team Description 11/03/2016 Surgical Consult [facility] German Miller hritis of left elbow (Primary Dx); MELANIA Motta MD 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 German Miller MD Hand & Upper Extremity Surgeon Automatic Washer Mechanic: Lalitha Watson Please contact Lalitha for all surgery scheduling and administrative questions at [phone] Hand Nurse: Leonardo Yao Please contact Leonardo for all medical related questions at [phone] Medication Requests: Prescriptions are not filled on Weekends or on Weekdays after 3:00PM For all medication refills: Request a refill using Ph[employer] or contact your Pharmacy Please call [phone] to make future appointments. Schedule CT scan and EMG Follow up for results as discussed Your Provider has ordered an EMG: Location: [facility] [address], [place] [address] Provider: Dr. Thompson Test Ordered: EMG Nerve Conduction Study Please be aware: Dr. Thompson's office will call you within 24 hours. If you have not heard from their office please call [phone]. To Do List: Please make an appointment with your referring provider in clinic to review the results. UNTING TEACHER documented in this encounter Progress Notes German Miller MD - 11/03/2016 6:31 AM CST [facility] Orthopaedic [place] Consultation 11/03/2016 Chief Complaint: Left Elbow Pain [...] motion. Ed has been previously evaluated by [place] for this same problem where they recommended [...] with the patient; this is located in [facility] in [facility]. Review of Systems: A 15-point review was [...] 11/03/2016 at 11:23 AM. German Miller MD UNTING TEACHER documented in this encounter Plan of Treatment Upcoming Encounters Date Type Specialty Care Team Description 09/15/2022 Appointment Orthopedics Delgado Gottlieb MD [address] [place] [address] (Wo rk) 10/08/2022 Appointment Orthopedics Delgado Gottlieb MD [address] [place] [phone] (Gavi presley) 05/27/2023 Appointment Chemo Therapy/Infusion Services documented as of this encounter Results CT Elbow Lt WO IV Cont (11/03/2016 1:56 PM ACCOUNTING TEACHER) Anatomical Region Laterality Modality Upper Extremity, Forearm, Arm, Elbow Com puted Tomography Specimen (Source) Anatomical Collection Method Collection Time Re ceived Time Location / / Volume Laterality 11/03/2016 1:32 PM ACCOUNTING TEACHER Impressions 11/03/2016 2:49 PM ACCOUNTING TEACHER IMPRESSION: ??Moderate osteoarthritic changes and multiple ossific joint bodies. Narrative 11/03/2016 2:49 PM ACCOUNTING TEACHER TECHNIQUE: ??Thin section axial scans were obtained [...] Elbow Lt 3+ Views (11/03/2016 11:04 AM ACCOUNTING TEACHER) Anatomical Region Laterality Modality Upper Extremity, Elbow Digital Radiograp hy Specimen (Source) Anatomical Location Collection Method / Collectio n Time Received Time / Laterality Volume Narrative 11/03/2016 3:31 PM ACCOUNTING TEACHER 3 views of the left elbow show [...] elbow documented in this encounter Care Teams Integrated Marketing Manager Relationship Specialty Start Date End Date Eric Bower MD PCP - General 12/10/10 08/17/[address] [place] [phone] documented as of this encounter
--- OUTSIDE RECORDS SUMMARY | 2022-08-19 10:50 | XMS_ITS | Encounter Summary ---
:1960 Author Organization [facility] Address [address] [place] [address] Care Team Providers Name Role Phone Ladan Song MD Primary Care Provider Unavailable Reason for Visit Reason Comments Hand Therapy Encounter Details Date Type Department Care Team Description 08/25/2017 Office Visit [facility] Sruthi Guardado, Cubital tunnel syndrome on l eft (Primary Dx); 8100 [facility] OTR/L Aftercare following surgery of [facility] system; Drive 8100 [facility] Loose [place] [address] [phone] Social History Tobacco Use Types Packs/Day Years [...] past medical history on file. 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 TREATMENT INTERVENTION: OT Evaluation CPT 67036 (20 minutes untimed) A Moderate Complexity Occupational [...] agreement with care plan. Therapeutic Exercise CPT 82884 (15 minutes) Exercise: Issued handout, instructed in, [...] to use for protection. Patient lives in [place] so would like to minimize visits. If progressing well, consider f/u after MD 6 week appointment. (May instruct to begin AAROM to begin around 4-5 weeks if needed) Visit frequency/duration: Patient will be seen 1x/week for 6-8 weeks, unless progressing well. Treatment Plan: AROM, nerve glides, desensitization, strengthening, edema control, scar management, modalities, manual therapy, patient education and training. Therapist Signature: ANDREW Ruth/Violette, [facility] #[id number] Visit #1 Payor: [facility] / Plan: [facility] BLUE [employer] / Product Type: Medicaid / Physician electronic signature indicates review and certification of therapy plan of care. RNSHIP COORDINATOR documented in this encounter Plan of Treatment Upcoming Encounters Date Type Specialty Care Team Description 09/15/2022 Appointment Orthopedics Delgado Gottlieb MD [address] [place], [place] [address] (Gavi presley) 10/08/2022 Appointment Orthopedics Delgado Gottlieb MD [address] [place], [place] [address] (Gavi presley) 05/27/2023 Appointment Chemo Therapy/Infusion Services documented as of this encounter Visit Diagnoses Diagnosis Cubital tunnel syndrome on left - Primar y Lesion of ulnar nerve Aftercare following surgery of [facility] loskeletal system Aftercare following surgery of the [facility] loskeletal system, NEC Loose body of left elbow Loose body in upper arm joint documented in this encounter Care Teams Correspondence Specialist Relationship Specialty Start Date End Date Ladan Song MD PCP - General Internal Medicine 08/18/17 09/29/21 documented as of this encounter
--- OUTSIDE RECORDS SUMMARY | 2022-08-19 10:50 | XMS_ITS | Encounter Summary ---
:1960 Author Organization [employer] Address [address], [place] [address] Care Team Providers Name Role Phone Eric Bower MD Primary Care Provider Reason for Visit Reason Onset Date Comments QUESTIONS, GENERAL 11/26/2016 Encounter Details Date Type Department Care Team Description 11/26/2016 Telephone [facility] German Rob, QUESTIONS, GENERAL 8100 [facility] [place], [place] [address] 8100 [facility] [phone] [place], [place] [address] (Wo rk) Social History Tobacco Use Types [...] number. LM on to call back to [phone]. Freda Yao RN - 11/26/2016 9:07 AM CDT Pt calling via [employer]. States he has seen [facility] for his elbow. A CT was done and he has been referred to have an EMG. He has had to cancel this appt twice. He has been told that the EMG can be done here at [facility]. He would rather do this here as it is closer and [facility]. Wanting to know why he is being sent to [place] when this can be done here. Routing to [facility]. Can this be scheduled here? documented in this encounter Plan of Treatment Upcoming Encounters Date Type Specialty Care Team Description 09/15/2022 Appointment Orthopedics Delgado Gottlieb MD [address] [place], [place] [address] (Gavi presley) 10/08/2022 Appointment Orthopedics Delgado Gottlieb MD [address] [place], [place] [address] (Gavi presley) 05/27/2023 Appointment Chemo Therapy/Infusion Services documented as of this encounter Visit Diagnoses Not on filedocumented in this encounter Care Teams Fiscal Analyst Relationship Specialty Start Date End Date Eric Bower MD PCP - General 12/10/10 08/17/[address] [place] [phone] documented as of this encounter
--- OUTSIDE RECORDS SUMMARY | 2022-08-19 10:50 | XMS_ITS | Encounter Summary ---
:1960 [facility] Address [address], [place] [address] Care Team Providers Name Role Phone Eric Bower MD Primary Care Provider Encounter Details Date Type Department Care Team Description 09/07/1989 PN Conversion Only HOSPITAL CHIEF EXECUTIVE OFFICER [facility] [facility] Eric Bower MD 3800 [facility] [address] [place] [address] (Gavi presley) Social History Tobacco [...] 09/15/2022 Appointment Orthopedics Delgado Gottlieb MD [address] [place], [place] [address] (Gavi rk) 10/08/2022 Appointment Orthopedics Delgado Gottlieb MD [address] [place], [place] [address] (Gavi presley) 05/27/2023 Appointment Chemo Therapy/Infusion Services documented as of this encounter Visit Diagnoses Not on filedocumented in this encounter Care Teams Drafter Electronic Relationship Specialty Start Date End Date Eric Bower MD PCP - General 12/10/10 08/17/17 [address] [facility] [address] [place] [address] documented as of this encounter
--- OUTSIDE RECORDS SUMMARY | 2022-08-19 10:50 | XMS_ITS | Encounter Summary ---
:1960 Author Organization [facility] Address [address] [place] [address] Care Team Providers Name Role Phone Ladan Song MD Primary Care Provider Unavailable Reason for Visit Procedure/Equipment (Routine) - Canceled Specialty Diagnoses / Procedures Referred By Contact Refer red To Contact Diagnoses No diagnosis or condition on Rifle II (HRC) German Miller MD Procedures FL C Arm Mini [address] [facility] [place], [place] [address] Referral ID Status Reason Start Date Expiration Date Visits V isits Requested Authorized [id number] Canceled 08/18/2017 11/17/2018 1 1 Encounter Details Date Type Department Care Team Description 08/18/2017 Hospital Encounter Confucianism Radiology German Miller No diagnosis or [address] Ramirez Motta MD condition on [address] [facility] [address] [place] [facility] [address] [phone] Social History Tobacco Use Types Packs/Day Years [...] in 24 hours cyanocobalamin 3 10/28/2016 06/26/2021 ([id number]) 1000 MCG/ML injection HYDROmorphone Take 1-2 Tabs [...] 09/15/2022 Appointment Orthopedics Delgado Gottlieb MD [address] [place] [phone] (Gavi presley) 10/08/2022 Appointment Orthopedics Delgado Gottlieb MD [address] [place] [phone] (Gavi presley) 05/27/2023 Appointment Chemo Therapy/Infusion Services documented as of this encounter Visit Diagnoses Diagnosis No diagnosis or condition on Rifle II (HR C) Observation of other suspected mental co ndition documented in this encounter Care Teams Curriculum And Assessment Director Relationship Specialty Start Date End Date Ladan Song MD PCP - General Internal Medicine 08/18/17 09/29/21 documented as of this encounter
--- OUTSIDE RECORDS SUMMARY | 2022-08-19 10:50 | XMS_ITS | Encounter Summary ---
:[address] [facility] Address [address] [place] [address] Care Team Providers Name Role Phone Ladan Song MD Primary Care Provider Unavailable Reason for Visit Reason Comments Hand Therapy Encounter Details Date Type Department Care Team Description 09/01/2017 Office Visit [facility] Jerad Bell, Cubital tunnel syndrome on l eft (Primary Dx); [address] [facility] OTR/L Aftercare [facility]; Drive [address] [facility] [place] [address] [phone] Social History Tobacco Use Types Packs/Day Years [...] no past medical historyon file. 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 TREATMENT INTERVENTION: Therapeutic Exercise CPT 18134 (45 minutes) Exercise: Re-Issued handout, instructed in, [...] instruct in scar management. Patient lives in [place] so would like to minimize visits. Ifprogressing [...] Therapist Signature: Jerad Bell MS, OTR/L # [id number] Visit #2 Payor: [employer] / Plan: [facility] BLUE ADVANTAGE / Product Type: Medicaid / MAKER documented in this encounter Plan of Treatment Upcoming Encounters Date Type Specialty Care Team Description 09/15/2022 Appointment Orthopedics Delgado Gottlieb MD [address] [place], [place] [address] (Gavi presley) 10/08/2022 Appointment Orthopedics Delgado Gottlieb MD [address] [place], [place] [address] (Gavi presley) 05/27/2023 Appointment Chemo Therapy/Infusion Services documented as of this encounter Visit Diagnoses Diagnosis Cubital tunnel syndrome on left - Primar y Lesion of ulnar nerve Aftercare following surgery of the [facility] [place] system Aftercare following surgery of the [facility] [place], NEC Loose body of left elbow Loose body in upper arm joint documented in this encounter Care Teams Truck Manager Relationship Specialty Start Date End Date Ladan Song MD PCP - General Internal Medicine 08/18/17 09/29/21 documented as of this encounter
--- OUTSIDE RECORDS SUMMARY | 2022-08-19 10:50 | XMS_ITS | Encounter Summary ---
:1960 Author Organization [facility] Address [address], [place] [address] Care Team Providers Name Role Phone Eric Bower MD Primary Care Provider Encounter Details Date Type Department Care Team Description 08/11/2017 Notes/Orders [facility] German Miller, Surg hayes, elective CENTER (Primary Dx) [address] [facility] [address] [place] [address] [address] [place] [address] [address] [place], [place] [phone] (Gavi presley) Social History Tobacco Use Types [...] 09/15/2022 Appointment Orthopedics Delgado Gottlieb MD [address] [place], [place] [address] (Gavi presley) 10/08/2022 Appointment Orthopedics Delgado Gottlieb MD [address] [place], [place] [address] (Gavi presley) 05/27/2023 Appointment Chemo Therapy/Infusion Services documented as of this encounter Visit Diagnoses Diagnosis Surgery, elective - Primary Unspecified elective surgery for purpose s other than remedying health states documented in this encounter Care Teams Institute Director Relationship Specialty Start Date End Date Eric Bower MD PCP - General 12/10/10 08/17/[address] [phone] documented as of this encounter
--- OUTSIDE RECORDS SUMMARY | 2022-08-19 10:50 | XMS_ITS | Encounter Summary ---
:1960 Author Organization [facility] Address [address] [place] [address] Care Team Providers Name Role Phone Eric Bower MD Primary Care Provider Reason for Visit Reason Comments HAND PAIN left CTS Encounter Details Date Type Department Care Team Description 01/06/2017 Office Visit TRIGerman Watkins, Left carpal tunnel syndrome (Primary Dx); CENTER Left cubital tunnel syndrome; [address] [facility] [address] [place] [address] Left elbow arthritis with loose bodies [place], [place] [address] [place], [place] [phone] (Wo rk) Social History Tobacco Use Types [...] Miller MD Hand & Upper Extremity Surgeon Real Estate Coordinator: Lalitha Watson Please contact Lalitha for all surgery scheduling and administrative questions at [phone] Hand Nurse: Leonardo Yao Please contact Leonardo for all medical related questions at [phone] Medication Requests: Prescriptions are not filled on Weekends or on Weekdays after 3:00PM For all medication refills: Request a refill using [employer] or contact your Pharmacy Please call [phone] to make future appointments. Follow up for surgery as scheduled documented in this encounter Progress Notes German Miller MD - 01/06/2017 6:22 AM CDT [facility] Follow-Up 01/06/2017 Chief Complaint: Left Elbow [...] 09/15/2022 Appointment Orthopedics Delgado Gottlieb MD [address] [place], [place] [address] (Wo rk) 10/08/2022 Appointment Orthopedics Delgado Gottlieb MD [address] [place], [place] [address] (Wo rk) 05/27/2023 Appointment Chemo Therapy/Infusion Services documented as of this encounter Visit Diagnoses Diagnosis Left carpal tunnel syndrome - Primary Carpal tunnel syndrome Left cubital tunnel syndrome Left elbow arthritis with loose bodies documented in this encounter Care Teams Robotic Technician Relationship Specialty Start Date End Date Eric Bower MD PCP - General 12/10/10 08/17/[address] [place] [phone] documented as of this encounter
--- OUTSIDE RECORDS SUMMARY | 2022-08-19 10:50 | XMS_ITS | Encounter Summary ---
:1960 Author Organization [facility] Address [address] [place] [address] Care Team Providers Name Role Phone Ladan Song MD Primary Care Provider Unavailable Encounter Details Date Type Department Care Team Description 08/26/2017 Notes/Orders [facility] Radha Womack, OTR/L [address] [facility] [address] [facility] [address] [place] [address] [place] [address] [phone] (Wo rk) Social History Tobacco Use Types [...] as of this encounter Progress Notes Radha Woamck, OTR/L - 08/26/2017 12:52 PM CST Patient [...] scheduled appointment next week. VINCENT Brady/Violette T #[id number] INE VENEER REPAIRER documented in this encounter Plan of Treatment Upcoming Encounters Date Type Specialty Care Team Description 09/15/2022 Appointment Orthopedics Delgado Gottlieb MD [address] [place] [address] (Gavi presley) 10/08/2022 Appointment Orthopedics Delgado Gottlieb MD [address] [place] [address] (Gavi presley) 05/27/2023 Appointment Chemo Therapy/Infusion Services documented as of this encounter Visit Diagnoses Not on filedocumented in this encounter Care Teams Sales Person Relationship Specialty Start Date End Date Ladan Song MD PCP - General Internal Medicine 08/18/17 09/29/21 documented as of this encounter
--- OUTSIDE RECORDS SUMMARY | 2022-08-19 10:50 | XMS_ITS | Encounter Summary ---
:1960 Author Organization [facility] Address [address], [place] [address] Care Team Providers Name Role Phone Eric Bower MD Primary Care Provider Encounter Details Date Type Department Care Team Description 08/17/2017 Notes/Orders [facility] ANNI German Rob MD [address] [facility] [address] [place] [address] [address] [place] [address] [place], [place] [address] (Gavi presley) Social History Tobacco Use Types [...] 09/15/2022 Appointment Orthopedics Delgado Gottlieb MD [address] [place], [place] [address] (Gavi rk) 10/08/2022 Appointment Orthopedics Delgado Gottlieb MD [address] [place], [place] [address] (Gavi presley) 05/27/2023 Appointment Chemo Therapy/Infusion Services documented as of this encounter Visit Diagnoses Not on filedocumented in this encounter Care Teams National Accounts Recruiter Relationship Specialty Start Date End Date Eric Bower MD PCP - General 12/10/10 08/17/[address] [place] [phone] documented as of this encounter
--- OUTSIDE RECORDS SUMMARY | 2022-08-19 10:50 | XMS_ITS | Encounter Summary ---
:1960 Author Organization [facility] Address [address] [place] [address] Care Team Providers Name Role Phone Ladan Song MD Primary Care Provider Unavailable Reason for Visit Reason Comments Post-Op Follow Up Call Encounter Details Date Type Department Care Team Description 08/19/2017 Telephone [facility] German Miller, Post -Op Follow Up Call CENTER [address] [facility] [address] [place] [address] [address] [place] [address] [place], [place] [phone] (Wo rk) Social History Tobacco Use Types [...] Please call him to clarify at . DATA ENTRY OPERATOR documented in this encounter Plan of Treatment Upcoming Encounters Date Type Specialty Care Team Description 09/15/2022 Appointment Orthopedics Delgado Gottlieb MD [address] [place], [place] [address] (Gavi rk) 10/08/2022 Appointment Orthopedics Delgado Gottlieb MD [address] [place] [phone] (Gavi presley) 05/27/2023 Appointment Chemo Therapy/Infusion Services documented as of this encounter Visit Diagnoses Not on filedocumented in this encounter Care Teams Bait Painter Relationship Specialty Start Date End Date Ladan Song MD PCP - General Internal Medicine 08/18/17 09/29/21 documented as of this encounter
--- OUTSIDE RECORDS SUMMARY | 2022-08-19 10:50 | XMS_ITS | Encounter Summary ---
:1960 Author Organization [facility] Address [address] [address] Care Team Providers Name Role Phone Eric Bower MD Primary Care Provider Reason for Visit Reason Onset Date Comments RESULTS, TEST 12/17/2016 Encounter Details Date Type Department Care Team Description 12/17/2016 Telephone [facility] ANNI German Rob MD RESULTS, TEST [address] [facility] [address] [facility] [place], [place] [address] [place] [address] [phone] (Wo rk) Social History Tobacco Use Types [...] 09/15/2022 Appointment Orthopedics Delgado Gottlieb MD [address] [place], [place] [address] (Wo rk) 10/08/2022 Appointment Orthopedics Delgado Gottlieb MD [address] [place] [phone] (Wo rk) 05/27/2023 Appointment Chemo Therapy/Infusion Services documented as of this encounter Visit Diagnoses Not on filedocumented in this encounter Care Teams Metal Bonding Worker Relationship Specialty Start Date End Date Eric Bower MD PCP - General 12/10/10 08/17/[address] [phone] documented as of this encounter
--- OUTSIDE RECORDS SUMMARY | 2022-08-19 10:50 | XMS_ITS | Encounter Summary ---
:1960 Author Organization [employer] Address [address] [place] [address] Care Team Providers Name Role Phone Eric Bower MD Primary Care Provider Reason for Visit Reason Comments QUESTIONS, GENERAL Encounter Details Date Type Department Care Team Description 08/05/2017 Telephone [facility] ANNI German Rob, QUESTIONS, GENERAL [address] [facility] [place], [place] [address] [address] [facility] [phone] [place], [place] [address] (Wo rk) Social History Tobacco Use Types [...] back with further questions or concerns to [phone]. MACY HELPER documented in this encounter Plan of Treatment Upcoming Encounters Date Type Specialty Care Team Description 09/15/2022 Appointment Orthopedics Delgado Gottlieb MD [address] [place], [place] [address] (Wo rk) 10/08/2022 Appointment Orthopedics Delgado Gottlieb MD [address] [place] [address] (Gavi rk) 05/27/2023 Appointment Chemo Therapy/Infusion Services documented as of this encounter Visit Diagnoses Not on filedocumented in this encounter Care Teams Agent Ticketing Gate Relationship Specialty Start Date End Date Eric Bower MD PCP - General 12/10/10 08/17/[address] [place] [phone] documented as of this encounter
--- OUTSIDE RECORDS SUMMARY | 2022-08-19 10:50 | XMS_ITS ---
:1960 Author Care Team Providers Name Role Phone [facility] Physical Therapist [phone] Allergies Code Code System Name Reaction [...] CT, Lumbar Spine, W/ Contrast Inspired [facility] [address] [place], [place] [phone] (Work Place) 12/20/2020 XR, Lumbosacral Spine Inspired Spine [facility] [address] [place] [address] (Work Place) Results Lab Results [...]
--- OUTSIDE RECORDS SUMMARY | 2022-08-19 10:50 | XMS_ITS | Encounter Summary ---
:1960 Author Organization [facility] Address [address] [place] [address] Care Team Providers Name Role Phone Eric Bower MD Primary Care Provider Reason for Visit Reason Comments Procedure Bilateral upper extremity EM G Encounter Details Date Type Department Care Team Description 12/11/2016 Procedure Visit [facility] Rahel Decker (Bilateral CENTER Imani Conteh MD upper extremity EMG) [address] [place] [address] [phone] Social History Tobacco Use Types Packs/Day Years [...] Exam Date: 12/11/2016 Name: Laz Luna MR#: [id number] Gender: Male Date of : 1960 Age: [...] 09/15/2022 Appointment Orthopedics Delgado Gottlieb MD [address] [place] [phone] (Gavi presley) 10/08/2022 Appointment Orthopedics Delgado Gottlieb MD [address] [place], [place] [address] (Gavi presley) 05/27/2023 Appointment Chemo Therapy/Infusion Services documented as of this encounter Visit Diagnoses Diagnosis Carpal tunnel syndrome of left wrist [G5 6.02] - Primary Carpal tunnel syndrome 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
--- OUTSIDE RECORDS SUMMARY | 2022-08-19 10:50 | XMS_ITS | Encounter Summary ---
:1960 Author Organization [employer] Address [address] [place] [address] Care Team Providers Name Role Phone Eric Bower MD Primary Care Provider Reason for Visit Reason Onset Date Comments UPDATE 06/24/2017 Encounter Details Date Type Department Care Team Description 06/24/2017 Telephone [facility] ANNI TER German Miller MD UPDATE [address] [facility] [address] [place] [address] [place] [address] [address] [place] [address] [phone] (Wo rk) Social History Tobacco Use Types [...] 2 procedures can be done close together. [facility] asked that we contact this pt and obtain the name of the abdominal surgeon so that he could calland discuss this with him. In speaking to the pt, he has adamantly refused to tell us who the other surgeon is. Some doctor down in [place]. You don't need that information. I am [...] he said no big deal. Routing to [facility] to see how he would like to proceed on this. documented in this encounter Plan of Treatment Upcoming Encounters Date Type Specialty Care Team Description 09/15/2022 Appointment Orthopedics Delgado Gottlieb MD [address] [place], [place] [address] (Gavi presley) 10/08/2022 Appointment Orthopedics Delgado Gottlieb MD [address] [place], [place] [address] (Gavi presley) 05/27/2023 Appointment Chemo Therapy/Infusion Services documented as of this encounter Visit Diagnoses Not on filedocumented in this encounter Care Teams Russian History Professor Relationship Specialty Start Date End Date Eric Bower MD PCP - General 12/10/10 08/17/[address] [place] [phone] documented as of this encounter
--- OUTSIDE RECORDS SUMMARY | 2022-08-19 10:50 | XMS_ITS | Encounter Summary ---
:1960 Author Organization [facility] Address [address] [facility] [place] [address] Care Team Providers Name Role Phone Eric Bower MD Primary Care Provider Reason for Visit Procedure/Equipment (Routine) - Incomplete Specialty Diagnoses / Procedures Referred By Contact Refer red To Contact Diagnoses Arthritis of left elbow German Miller MD Procedures XR Elbow Lt 3+ Views [address] [facility] [place] [address] Referral ID Status Reason Start Date Expiration Date Visits V isits Requested Authorized [id number] Incomplete 11/03/2016 02/02/2018 1 1 Encounter Details Date Type Department Care Team Description 11/03/2016 Imaging [facility] German Miller MD Left elbow pain [address] [facility] [address] [facility] [address] [address] [place] [address] [phone] (Wo rk) Social History Tobacco Use Types [...] 09/15/2022 Appointment Orthopedics Delgado Gottlieb MD [address] [place], [place] [address] (Wo rk) 10/08/2022 Appointment Orthopedics Delgado Gottlieb MD [address] [place], [place] [address] (Wo rk) 05/27/2023 Appointment Chemo Therapy/Infusion Services documented as of this encounter Procedures Procedure Name Priority Date/Time Associated Diagnosis Comme nts XR ELBOW LT 3+ Routine 11/03/2016 11:04 AM Left elbow pain Res ults for this VIEWS SALESPERSON STEREO EQUIPMENT procedure are i n the results section. documented in this encounter Results XR Elbow Lt 3+ Views (11/03/2016 11:04 AM SALESPERSON STEREO EQUIPMENT) Anatomical Region Laterality Modality Upper Extremity, Elbow Digital Radiograp hy Specimen (Source) Anatomical Location Collection Method / Collectio n Time Received Time / Laterality Volume Narrative 11/03/2016 3:31 PM SALESPERSON STEREO EQUIPMENT 3 views of the left elbow show [...] arm documented in this encounter Care Teams Custom Decorating Consultant Relationship Specialty Start Date End Date Eric Bower MD PCP - General 12/10/10 08/17/[address] [place] [phone] documented as of this encounter
--- OUTSIDE RECORDS SUMMARY | 2022-08-19 10:50 | XMS_ITS | Encounter Summary ---
:1960 Author Organization [facility] Address [address] [place] [address] Care Team Providers Name Role Phone Eric Bower MD Primary Care Provider Reason for Visit Procedure/Equipment (Routine) - Incomplete Specialty Diagnoses / Procedures Referred By Contact Refer red To Contact Diagnoses Arthritis of left elbow German Miller MD Procedures CT Elbow Lt WO IV Cont [address] [facility] [place], [place] [address] Referral ID Status Reason Start Date Expiration Date Visits V isits Requested Authorized [id number] Incomplete 11/03/2016 02/02/2018 1 1 Encounter Details Date Type Department Care Team Description 11/03/[address] Scan German Miller, Arthritis of left elbow [address] [place] [address] [address] [facility] [phone] [place], [place] [address] (Wo rk) Social History Tobacco Use Types [...] 09/15/2022 Appointment Orthopedics Delgado Gottlieb MD [address] [place], [place] [address] (Wo rk) 10/08/2022 Appointment Orthopedics Delgado Gottlieb MD [address] [place], [place] [address] (Gavi presley) 05/27/2023 Appointment Chemo Therapy/Infusion Services documented as of this encounter Procedures Procedure Name Priority Date/Time Associated Diagnosis Comme nts CT ELBOW LT WO IV Routine 11/03/2016 1:56 PM Arthritis of left Results for this CONT SALVAGE DIVER elbow procedure are i n the results section. documented in this encounter Results CT Elbow Lt WO IV Cont (11/03/2016 1:56 PM SALVAGE DIVER) Anatomical Region Laterality Modality Upper Extremity, Forearm, Arm, Elbow Com puted Tomography Specimen (Source) Anatomical Collection Method Collection Time Re ceived Time Location / / Volume Laterality 11/03/2016 1:32 PM SALVAGE DIVER Impressions 11/03/2016 2:49 PM SALVAGE DIVER IMPRESSION: ??Moderate osteoarthritic changes and multiple ossific joint bodies. Narrative 11/03/2016 2:49 PM SALVAGE DIVER TECHNIQUE: ??Thin section axial scans were obtained [...] elbow documented in this encounter Care Teams Bite Block Maker Relationship Specialty Start Date End Date Eric Bower MD PCP - General 12/10/10 08/17/[address] [phone] documented as of this encounter
--- OUTSIDE RECORDS SUMMARY | 2022-08-19 10:50 | XMS_ITS | Encounter Summary ---
:1960 Author Organization [facility] Address [address] [place] [address] Care Team Providers Name Role Phone Ladan Song MD Primary Care Provider Unavailable Reason for Referral Therapies (Routine) - Closed Specialty Diagnoses / Procedures Referred By Contact Refer red To Contact Diagnoses Cubital tunnel syndrome on left Stiffness of left elbow joint German Miller MD [address] [facility] [place], [place] [address] Referral ID Status Reason Start Date Expiration Date Visits Requ ested Visits Authorized [id number] Closed 08/18/2017 10/17/2017 1 1 Scheduling Instructions Your provider has recommended an appoint ment with [facility]. You may call [phone] to schedule your appoi ntment. If you do not schedule an appointment within the next 1 to 3 business days, we will call you to help arrange your appointment. We suggest you call your [email or web address] insurance [employer] about your coverage and benefits for this appointment. FORCE ADVISOR Encounter Details Date Type Department Care Team Description 08/18/2017 Hospital Encounter [facility] German Miller Cubital tunnel syndrome on left (Primary Dx); Bren Motta MD Stiffness of left elbow joint [address] [facility] [place] [address] [phone] Social History Tobacco Use Types Packs/Day Years [...] 79.4 kg (175 lb) 08/17/2017 11:02 AM WORKFORCE ADVISOR Height 182.9 cm (6') 08/17/2017 11:02 AM WORKFORCE ADVISOR Body Mass Index 23.73 08/17/2017 11:02 AM WORKFORCE ADVISOR documented in this encounter Discharge Instructions Discharge Instr - Other German Ochoa MD - 08/18/2017 4:44 PM WORKFORCE ADVISOR Home Care following Hand Surgery Diet You [...] your surgery or post-surgical care call [facility] ([phone]) and ask for nurse triage. Home Care [...] the next 48-72 hours. Contact your physician ([phone]) if you have any of these problems: ?? Continued numbness or increased numbness or tingling. ?? Swelling of the extremity that makes the dressing too tight. Take special note of either extremities that are cold to the touch or exhibit blue coloring. ?? Excessive bleeding or drainage. ?? Severe pain. FORCE ADVISOR documented in this encounter Medications at Time [...] in 24 hours cyanocobalamin 3 10/28/2016 06/26/2021 ([id number]) 1000 MCG/ML injection HYDROmorphone Take 1-2 Tabs [...] candidate for surgery. German Miller MD 08/18/2017 FORCE ADVISOR Source Note - ProviderRoland MD - 08/17/2017 12:00 AM WORKFORCE ADVISOR documented in this encounter Procedure Notes German [...] home German Miller MD 4:31 PM 08/18/2017 FORCE ADVISOR German Miller MD - 08/18/2017 12:00 PM CST NAME: LAZ LUNA MR#: [id number] CSN: [id number] AUTHENTICATING CLINICIAN: German Miller MD CONFIRM #: [id number] LOC: 1 OPERATIVE REPORT DATE OF OPERATION: 08/18/2017 : 1960 SURGEON: German Miller MD PREOPERATIVE DIAGNOSES: 1.Left cubital tunnel syndrome. 2.Left elbow arthritis. 3.Left elbow loose bodies. POSTOPERATIVE DIAGNOSES: 1.Left cubital tunnel syndrome. 2.Left elbow arthritis. 3.Left elbow loose bodies. PROCEDURE PERFORMED: 1.Left ulnar nerve submuscular transposition. 2.Left elbow capsulectomy. 3.Left elbow open debridement and loose body removal. BURIAL VAULT DELIVERER AND INSTALLER: BEBETO Milian, training and development assistant. ANESTHESIA: Brachial plexus block. ESTIMATED BLOOD [...] nerve further proximally and the arcade of [place] was released. I then traced the nerve [...] 6 weeks postop. MCW:KEISHA C: CONFIRM #: [id number] FORCE ADVISOR documented in this encounter Plan of Treatment Upcoming Encounters Date Type Specialty Care Team Description 09/15/2022 Appointment Orthopedics Delgado Gottlieb MD [address] [place], [place] [address] (Wo rk) 10/08/2022 Appointment Orthopedics Delgado Gottlieb MD [address] [place] [phone] (Wo rk) 05/27/2023 Appointment Chemo [...] PM Result s for this MONITOR POCT WORKFORCE ADVISOR procedure are i n the results section. POTASSIUM STAT 08/18/2017 1:35 PM Results f or this WORKFORCE ADVISOR procedure are i n the results section. documented in this encounter Results Bedside Glucose Monitor (08/18/2017 1:50 PM WORKFORCE ADVISOR) P athologist Signature Bedside Blood 118 mg/dL PN SOFT Glucose Test Comment: Performed at [address] [place] [address] Specimen Anatomical Collection Method Collection Time Receive d Time (Source) Location / / Volume Laterality 08/18/2017 1:50 PM 7 1:55 WORKFORCE ADVISOR PM WORKFORCE ADVISOR German Miller MD LAB_1 Performing Organization Address [facility] Phon e Number PN SOFT [address] [place] [address] POTASSIUM (08/18/2017 1:35 PM WORKFORCE ADVISOR) athologist Signature Potassium 4.1 3.5 - 5.2 PN SOFT mmol/L Specimen Anatomical Collection Method Collection Time Receive d Time (Source) Location / / Volume Laterality 08/18/2017 1:35 PM 7 1:43 WORKFORCE ADVISOR PM WORKFORCE ADVISOR Narrative PN SOFT - 08/18/2017 2:31 PM WORKFORCE ADVISOR Performed at [place] [id number] [place] [address] CLIA number [id number] German Miller MD LAB_1 Performing Organization Address [facility] Phon e Number PN SOFT [address] [place] [address] documented in this encounter Visit Diagnoses Diagnosis Cubital tunnel syndrome on left - Primar y Lesion of ulnar nerve Stiffness of left elbow joint documented in this encounter Administered Medications Inactive Administered Medications - up to 3 most recent administrations Medication Order MAR Action Action Date Dose Rate Site fentaNYL (SUBLIMAZE) injection 25-50 mcg 25-50 mcg, Intravenous, [id number], Other, Moderate to Severe Pain (pain score [...] Recently Administered Medications Times are shown in WORKFORCE ADVISOR. Scheduled Medication Order 08/16/2017 08/17/2017 08/18/2017 acetaminophen [...] (SUBLIMAZE) injection 25-50 mcg 25-50 mcg, Intravenous, [id number], Other, Moderate to Severe Pain (pain score [...] PACU/Recovery documented in this encounter Care Teams Service Line Bus Cleaner Relationship Specialty Start Date End Date Ladan Song MD PCP - General Internal Medicine 08/18/17 09/29/21 documented as of this encounter
--- OUTSIDE RECORDS SUMMARY | 2022-08-19 10:50 | XMS_ITS | Encounter Summary ---
:1960 [facility] Address [address] [place] [address] Care Team Providers Name Role Phone Ladan Song MD Primary Care Provider Unavailable Reason for Visit Reason Comments Elbow Problem Post Op Left ulnar nerve sub muscular transposition at elbow 08/18/17 Therapies (Routine) - Closed Specialty Diagnoses / Procedures Referred By Contact Refer red To Contact Diagnoses Cubital tunnel syndrome on left Stiffness of left elbow joint German Miller MD [address] [place] [address] [address] [place] [address] Referral ID Status Reason Start Date Expiration Date Visits Requ ested Visits Authorized [id number] Closed 08/18/2017 10/17/2017 1 1 Encounter Details Date Type Department Care Team Description 08/25/2017 Office Visit [facility] German Miller Status post musculoskeletal system surgery (Primary Dx); MELANIA Motta MD Aftercare following surgery of the [facility] [address] [facility] [address] [place] [address] [place] [address] [phone] Social History Tobacco Use Types Packs/Day Years [...] Miller MD - 08/25/2017 1:11 PM CST [facility] Postoperative Follow-Up 08/25/2017 History of Present Illness: Laz Luna is a 57 y.o. male status-post left ulnar nerve submuscular transposition, elbow capsulectomy and open debridement and loose body removal of left elbow completed on 08/18/2017 [facility]. The patient is doing [...] (b) the recordis accurate. German Miller MD TABOUT HEAD documented in this encounter Plan of Treatment Upcoming Encounters Date Type Specialty Care Team Description 09/15/2022 Appointment Orthopedics Delgado Gottlieb MD [address] [place], [place] [address] (Wo rk) 10/08/2022 Appointment Orthopedics Delgado Gottlieb MD [address] [place], [place] [address] (Wo rk) 05/27/2023 Appointment Chemo Therapy/Infusion Services Scheduled Referrals Name Type Priority Associated Diagnoses Order S chedule Hand Occupational Therapy Referral Routine Cubital tunnel Ordered: 08/18/2017 syndrome on left Stiffness of left elbow joint documented as of this encounter Visit Diagnoses Diagnosis Status post musculoskeletal system surge ry - Primary Aftercare following surgery of the [facility] Aftercare following surgery of the [facility] system, [facility] documented in this encounter Care Teams Storage Facility Housekeeper Relationship Specialty Start Date End Date Ladan Song MD PCP - General Internal Medicine 08/18/17 09/29/21 documented as of this encounter
== END 2022-08-19 10:21 | disposition home or self-care (01) ==
LOC: WOUND 10:20
PROVIDERS: PCP Family Medicine; Visit Provider Nurse Practitioner Family
DX: L89.894 Pressure ulcer of other site, stage 4 (principal)
CPT/HCPCS: 11042

== ENCOUNTER 2022-08-26 09:33 | Outpatient (CLI) | payer BC, SELFPAY | END 2022-08-26 09:34 | disposition home or self-care (01) | LOC: WOUND 09:33 | PROVIDERS: PCP Family Medicine; Visit Provider Nurse Practitioner Family | DX: L89.894 Pressure ulcer of other site, stage 4 (principal) | CPT/HCPCS: 11042 ==

== ENCOUNTER 2022-09-01 12:06 | Inpatient (IN) | payer BC, SELFPAY ==
[2022-09-01] VITALS (37 sets, daily range): BP systolic 111–154; BP diastolic 49–104; PULSE 61–89; RESP 16–20; TEMP 36.2–36.9; O2SAT 94–100; BMI 24.0; BMI 24.1
--- NOTE | 2022-09-01 12:49 | ED_ITS ---
HPI - GI Bleed General Time Seen by Provider: 13:10 Date Seen: 09/01/22 Chief complaint: GI Bleed Stated complaint: Bleeding stomach ulcer Time Seen by Provider: 09/01/22 12:49 Source: patient Mode of arrival: ambulatory Limitations: no limitations History of Present Illness HPI Narrative: At is a very pleasant 62-year-old gentleman with a history of GI bleed in 2018 who comes to the emergency room with 1 month of increasing abdominal discomfort now associated with an episode of near-syncope and black stools this morning. Patient notes that he had been switch from omeprazole to famotidine approximately 2 weeks ago. He notes that he had had a leg fracture in June and a previous hip fracture and was told that this is likely because of the omeprazole. He was switch to famotidine 2 weeks ago but noted that he did have some stomach discomfort prior to that. He describes an acid type feeling. Of note he feels weak and woozy today. When he is active his heart does race and he is somewhat short of breath. Patient admits to using ibuprofen quite often since a left leg fracture in June. He also notes increasing stress as he has been out of work and has no money. He states the bank is for closing on him and of course this is really bothering him. He has not had any fever or chills. Related Data Home Medications Medication Instructions Recorded Confirmed allopurinol 300 mg tablet 300 mg PO DAILY 09/01/22 09/01/22 famotidine 20 mg tablet 20 mg PO Q12H 09/01/22 09/01/22 finasteride 5 mg tablet 5 mg PO DAILY 09/01/22 09/01/22 solifenacin 5 mg tablet 5 mg PO DAILY 09/01/22 09/01/22 tamsulosin 0.4 mg capsule 0.4 mg PO DAILY 09/01/22 09/01/22 Allergies Allergy/AdvReac Type Severity Reaction Status Date / Time ciprofloxacin [From Cipro] Allergy Verified 09/01/22 12:23 flu shot Allergy Diarrhea Uncoded 09/01/22 12:23 Review of Systems Status of ROS: Reports: 10 or more systems reviewed and unremarkable except as noted in History and below Const: Denies: fever or chills Eyes: Denies: change in vision ENMT: Denies: throat pain, neck pain, difficulty swallowing or hoarseness Cardio: Reports: chest pain (Radiation from the stomach when his stomach hurts.), swelling of feet/ankles (On the left with recent fracture.) and shortne ss of breath with exertion (With activity) Resp: Reports: shortness of breath (With activity); Denies: cough GI: Reports: abdominal pain, nausea and blood in stool (No gross blood but blood is very dark.); Denies: vomiting, diarrhea, constipation or difficulty swallowing : Reports: urinary frequency (Antibiotic approximately 1 and half weeks ago for urinary tract infection.); Denies: painful urination Musculo: Denies: neck pain Integ/Breast: Denies: rash PFSH PFSH Social History Smoking Status: Never smoker Do you use any of these nicotine containing products: None Second hand tobacco smoke exposure: No How often do you have a drink containing alcohol: never AUDIT-C Alcohol total score: 0 Non-prescribed substance use: denies use Exam Narrative: Exam Narrative: Patient is alert and oriented. Very verbose in his snoring telling with much detail. Eyes are clear. Overall he appears very pale to me. Mentating normally. Oral cavity with moist mucous membranes. Flipping of the lower lids shows some pale conjunctiva. Heart with regular rate and rhythm. Lungs are clear. Abdomen is soft there is no significant tenderness. Lower extremities show brace on the left lower leg. Moving all extremities. Const: Vital Signs, click to edit/add: Vital Signs - 24 hr 09/01/22 12:14 09/01/22 12:17 09/01/22 12:18 Temperature 98.2 F Pulse Rate 88 89 Pulse Rate [Pulse Oximeter] 88 Respiratory Rate 20 Blood Pressure 128/75 Blood Pressure [Le ft Upper Arm] 128/75 Pulse Oximetry 99 100 99 Oxygen Delivery Me thod Room Air Room Air 09/01/22 12:30 09/01/22 12:32 09/01/22 12:33 Temperature Pulse Rate 77 83 82 Pulse Rate [Pulse Oximeter] Respiratory Rate Blood Pressure 112/67 Blood Pressure [Le ft Upper Arm] Pulse Oximetry 98 99 99 Oxygen Delivery Me thod 09/01/22 12:45 09/01/22 13:00 09/01/22 13:02 Temperature Pulse Rate 77 79 81 Pulse Rate [Pulse Oximeter] Respiratory Rate Blood Pressure 111/74 Blood Pressure [Le ft Upper Arm] Pulse Oximetry 97 95 99 Oxygen Delivery Me thod 09/01/22 13:15 09/01/22 13:30 09/01/22 13:32 Temperature Pulse Rate 77 71 76 Pulse Rate [Pulse Oximeter] Respiratory Rate Blood Pressure 130/49 L Blood Pressure [Le ft Upper Arm] Pulse Oximetry 96 98 98 Oxygen Delivery Me thod 09/01/22 13:45 09/01/22 14:00 09/01/22 14:03 Temperature Pulse Rate 73 71 68 Pulse Rate [Pulse Oximeter] Respiratory Rate Blood Pressure 131/82 Blood Pressure [Le ft Upper Arm] Pulse Oximetry 99 99 100 Oxygen Delivery Me thod 09/01/22 14:15 09/01/22 14:33 09/01/22 15:03 Temperature Pulse Rate 70 Pulse Rate [Pulse Oximeter] Respiratory Rate Blood Pressure 128/68 138/72 Blood Pressure [Le ft Upper Arm] Pulse Oximetry 100 Oxygen Delivery Nv thod 09/01/22 15:06 09/01/22 15:15 09/01/22 15:30 Temperature Pulse Rate 68 67 66 Pulse Rate [Pulse Oximeter] Respiratory Rate Blood Pressure Blood Pressure [Le ft Upper Arm] Pulse Oximetry 98 98 98 Oxygen Delivery Nv thod 09/01/22 15:33 09/01/22 15:45 09/01/22 16:00 Temperature Pulse Rate 68 65 66 Pulse Rate [Pulse Oximeter] Respiratory Rate Blood Pressure 135/72 Blood Pressure [Le ft Upper Arm] Pulse Oximetry 99 99 99 Oxygen Delivery Nv thod 09/01/22 16:02 Temperature Pulse Rate 64 Pulse Rate [Pulse Oximeter] Respiratory Rate Blood Pressure 136/76 Blood Pressure [Le ft Upper Arm] Pulse Oximetry 98 Oxygen Delivery Me od Documenting provider has reviewed patient's vital signs: yes Course Course Hospital Course: At this time suspect GI bleed secondary to ibuprofen use for broken leg. Will give Protonix 80 mg IV, 500 mL normal saline and type and cross 2 units. CBC, comprehensive panel, amylase, lipase pending at this time. Reevaluation(s) Reevaluation #1: Hemoglobin returns at 5.7 and I do order 2 units of blood to be given. Patient declines to be admitted to the hospital and I do try to impress upon him the importance of remaining for observation and likely endoscopy to take a look at this issue. He states that he can not and has a long list of reasons why including needing to talk to the bank because he is being foreclosed upon, needing to talk to his work about working again and stating that his significant other here with him needs a ride home and cannot drive. He absent adamantly declines to be admitted and I do state that he has the right to do that. However, I must state that I think he is making some poor decisions. He then argues with his significant other who is also pushing for him to stay. He states he would like to take the blood and then go. He states he will come back to the ER tomorrow for more blood. I did tell him that that would not be the plan and that we would start over tomorrow if he came back to the emergency room. States he is always welcome to come to the ER but I still think this is poor decision making. I think that it would be velázquez to have him stay in house where we can monitor him. I do ask that he sign and that AMA which relieves thus of all liability for his poor decisions. He does relent and agrees to stay but is now angry and exhibiting child-like and pouting behavior. He does appear to be able to make his own decisions. He is certainly not under the influence at this time. We do speak further and patient is adamant that he is DNR/DNI. I do go into detail regarding need for intubation or chest compressions if he should worsen and he states he does not want that. Discussion witnessed by significant other and nursing staff. Vital Signs Vital signs: Initial Vital Signs Temperature 98.2 F 09/01/22 12:14 Temperature Source Temporal Artery Scan 09/01/22 12:14 Pulse Rate 88 09/01/22 12:14 Respiratory Rate 20 09/01/22 12:14 Blood Pressure 128/75 09/01/22 12:14 Blood Pressure Mean 92 09/01/22 12:14 Blood Pressure Position Semi-Fowlers 09/01/22 12:14 Pulse Oximetry 99 09/01/22 12:14 Oxygen Delivery Method 09/01/22 12:14 Vital Signs Temperature 98.2 F 09/01/22 12:14 Pulse Rate 88 09/01/22 12:14 Respiratory Rate 20 09/01/22 12:14 Blood Pressure 128/75 09/01/22 12:14 Pulse Oximetry 99 09/01/22 12:14 Oxygen Delivery Method 09/01/22 12:14 Temperature 98.2 F 09/01/22 12:14 Pulse Rate 64 09/01/22 16:02 Respiratory Rate 20 09/01/22 12:14 Blood Pressure 136/76 09/01/22 16:02 Pulse Oximetry 98 09/01/22 16:02 Oxygen Delivery Method 09/01/22 12:17 MDM - GI Bleed MDM Narrative Medical decision making narrative: 1. GI bleed-likely stemming from use of ibuprofen for left leg injury as well as discontinuance of PPI and substituting H2 ana. Patient given Protonix 80 mg IV in the ED. Also given 500 mL normal saline. 2 units typed and screened and ordered for administration. Admit to the floor voluntarily on patient's part after extensive discussion. 2. Recent UTI -urine without evidence of UTI. 3. Healing left leg fracture-fracture June 2022 4. Wound-left lower extremity currently seeing [facility]. He and his significant other do not want me to take the dressing off and states that it is actually improving quite a bit. 4. Disposition-admitted to the floor under the care of Dr. Nick. I was called back into the room as patient stated that he either wanted blood right now or he would go home and come back tomorrow. I told him that we have to do things safely and correctly and that the blood would be given to him once all of the checks were done. The plan is to give him blood on the floor. He did state to nursing staff that he would go home again and I stated if he wanted to I would have him sign an AMA. He recanted once again and is going to stay. Medical Records Attestation: I reviewed the patient's medical records. Lab Data Attestation: I reviewed the patient's lab results. Labs: Lab Results 09/01/22 09/01/22 09/01/22 Range/Units 13:20 13:21 13:21 WBC 5.10 (4.50-11.00) K/uL RBC 2.66 L (4.30-5.90) m/uL Hgb 5.7 L* (13.5-17.5) gm/dL Hct 20.6 L (37.0-53.0) % MCV 77 L (80-100) fL MCH 21 L (26-34) pg MCHC 28 L (32-36) gm/dL RDW Coeff of Katlyn 18.4 H (11.5-15.5) % Plt Count 188 (140-440) K/uL Neut % (Auto) 76.0 H (42.0-72.0) % Lymph % (Auto) 16.5 L (20-44) % Dickson % (Auto) 6.5 (0.0-11.0) % Eos % (Auto) 0.2 (0.0-7.0) % Baso % (Auto) 0.6 (0.0-3.0) % Neut # (Auto) 3.90 (1.7-7.0) K/uL Lymph # (Auto) 0.80 L (0.90-2.90) K/uL Dickson # (Auto) 0.30 (0.00-0.90) K/UL Eos # (Auto) 0.01 (0.00-0.50) K/uL Baso # (Auto) 0.03 (0.00-0.30) K/uL Sodium 137 (135-149) mmol/L Potassium 5.0 (3.6-5.1) mmol/L Chloride 107 (96-114) mmol/L Carbon Dioxide 25 (20-32) mmol/L BUN 51 H (7-30) mg/dL Creatinine 1.0 (0.5-1.5) mg/dL Estimated Creat Clear 81.91 Estimated GFR 84 ml/min Glucose 169 H (60-115) mg/dL Calcium 8.5 (8.4-10.6) mg/dL Total Bilirubin 0.3 (0.1-1.5) mg/dL AST 14 (12-35) U/L ALT 15 (4-50) U/L Alkaline Phosphatase 44 (40-150) U/L Total Protein 6.1 (6.0-8.3) g/dL Albumin 3.7 (3.3-5.0) g/dL Amylase 61 (18-89) U/L Lipase 47 (23-300) U/L Urine Color (Yellow) Urine Appearance (Clear) Urine pH (5.0-8.5) Ur Specific Union (1.000-1.030) Urine Protein (Negative) Urine Glucose (UA) (Negative) Urine Ketones (Negative) Urine Blood (Negative) Urine Nitrite (Negative) Urine Bilirubin (Negative) Urine Urobilinogen (0.2-1.0) Ur Leukocyte Esterase (Negative) Urine RBC (0-2) Urine WBC (0-5) Ur Squamous Epith Cells (None-Few) Urine Bacteria (None) Fine Granular Casts (None) SARS-CoV-2 (PCR) (Negative) POC Troponin I 0.01 (0.01-0.04) ng/ml Blood Type Antibody Screen Crossmatch (AHG) 09/01/22 09/01/22 09/01/22 Range/Units 13:21 13:29 14:00 WBC (4.50-11.00) K/uL RBC (4.30-5.90) m/uL Hgb (13.5-17.5) gm/dL Hct (37.0-53.0) % MCV (80-100) fL MCH (26-34) pg MCHC (32-36) gm/dL RDW Coeff of Katlyn (11.5-15.5) % Plt Count (140-440) K/uL Neut % (Auto) (42.0-72.0) % Lymph % (Auto) (20-44) % Dickson % (Auto) (0.0-11.0) % Eos % (Auto) (0.0-7.0) % Baso % (Auto) (0.0-3.0) % Neut # (Auto) (1.7-7.0) K/uL Lymph # (Auto) (0.90-2.90) K/uL Dickson # (Auto) (0.00-0.90) K/UL Eos # (Auto) (0.00-0.50) K/uL Baso # (Auto) (0.00-0.30) K/uL Sodium (135-149) mmol/L Potassium (3.6-5.1) mmol/L Chloride (96-114) mmol/L Carbon Dioxide (20-32) mmol/L BUN (7-30) mg/dL Creatinine (0.5-1.5) mg/dL Estimated Creat Clear Estimated GFR ml/min Glucose (60-115) mg/dL Calcium (8.4-10.6) mg/dL Total Bilirubin (0.1-1.5) mg/dL AST (12-35) U/L ALT (4-50) U/L Alkaline Phosphatase (40-150) U/L Total Protein (6.0-8.3) g/dL Albumin (3.3-5.0) g/dL Amylase (18-89) U/L Lipase (23-300) U/L Urine Color Yellow (Yellow) Urine Appearance Clear (Clear) Urine pH 5.5 (5.0-8.5) Ur Specific Union 1.025 (1.000-1.030) Urine Protein 2+ A (Negative) Urine Glucose (UA) Negative (Negative) Urine Ketones Negative (Negative) Urine Blood Negative (Negative) Urine Nitrite Negative (Negative) Urine Bilirubin Negative (Negative) Urine Urobilinogen 0.2 (0.2-1.0) Ur Leukocyte Esterase Negative (Negative) Urine RBC 0-2 (0-2) Urine WBC 0-2 (0-5) Ur Squamous Epith Cells Few (None-Few) Urine Bacteria None (None) Fine Granular Casts Few A (None) SARS-CoV-2 (PCR) Negative SARS-CoV-2 (Negative) POC Troponin I (0.01-0.04) ng/ml Blood Type A Positive Antibody Screen NEGATIVE Crossmatch (AHG) See Detail Imaging Data Chest x-ray: Attestation: I have reviewed the pertinent imaging results. My impression: No obvious infiltrates. Radiologist's impression: Cardiomediastinal silhouette is unremarkable. No focal lung consolidation, pleural effusion or pneumothorax. Left chest wall pacemaker with leads in the right atrium and right ventricle. Impression: No acute cardiopulmonary abnormality. ECG Data Attestation: I personally reviewed and interpreted this ECG as follows: ECG interpretation date: 09/01/22 Interpretation: EKG shows paced rhythm at a rate of 77.
--- NOTE | 2022-09-01 13:09 | CRLHL7_ITS ---
For Patients: As a result of the Century Cures Act, medical imaging exams and procedure reports are released immediately into your electronic medical record. You may view this report before your referring provider. If you have questions, please contact your health care provider. INDICATION: GI bleed with discomfort. TECHNIQUE: Chest 1 view Comparison: None Findings: Cardiomediastinal silhouette is unremarkable. No focal lung consolidation, pleural effusion or pneumothorax. Left chest wall pacemaker with leads in the right atrium and right ventricle. Impression: No acute cardiopulmonary abnormality. Dictated by Sebas Billy MD @ 09/01/2022 2:23:39 PM (Electronically Signed)
[2022-09-01 13:30] LABS: Basophils Absolute Auto 0.03 K/uL (0.00-0.30); Basophils Percent Auto 0.6 % (0.0-3.0); Eosinophils Absolute Auto 0.01 K/uL (0.00-0.50); Eosinophils Percent Auto 0.2 % (0.0-7.0); Hematocrit 20.6 % (37.0-53.0); Immature Granulocytes Abs Auto 0.01 K/uL (0.00-0.30); Immature Granulocytes Pct Auto 0.2 %; Lymphocytes Percent Auto 16.5 % (20-44); Mean Corpuscular HGB Conc 28 gm/dL (32-36); Mean Corpuscular Hemoglobin 21 pg (26-34); Mean Corpuscular Volume 77 fL (80-100); Monocytes Percent Auto 6.5 % (0.0-11.0); Platelet Count* 188 K/uL (140-440); RDW Coefficient of Variation % 18.4 % (11.5-15.5); Red Blood Count 2.66 m/uL (4.30-5.90)
[2022-09-01] MEDS: PANTOPRAZOLE SODIUM 40 MG INJ 80 MG IVP (13:50)
[2022-09-01] MEDS: 0.9 % SODIUM CHLORIDE 500 ML 500 ML IV (13:50)
[2022-09-01 13:53] LABS: Hemoglobin* 5.7 gm/dL (13.5-17.5)
[2022-09-01 13:55] LABS: Albumin* 3.7 g/dL (3.3-5.0); Chloride* 107 mmol/L (96-114)
[2022-09-01 13:56] LABS: Sodium* 137 mmol/L (135-149)
[2022-09-01 13:57] LABS: Troponin, Point-of-Care* 0.01 ng/ml (0.01-0.04)
[2022-09-01 13:58] LABS: Amylase* 61 U/L (18-89); Aspartate Amino Transferase* 14 U/L (12-35); Bilirubin Total* 0.3 mg/dL (0.1-1.5); Blood Urea Nitrogen* 51 mg/dL (7-30); Est. Creatinine Clearance* 81.91; Estimated Glomerular Filt Rate 84 ml/min; Total Protein* 6.1 g/dL (6.0-8.3)
[2022-09-01 13:59] LABS: Alanine Aminotransferase* 15 U/L (4-50); Alkaline Phosphatase* 44 U/L (40-150); Calcium* 8.5 mg/dL (8.4-10.6); Glucose* 169 mg/dL (60-115); Lipase* 47 U/L (23-300)
[2022-09-01 14:18] LABS: Carbon Dioxide* 25 mmol/L (20-32)
[2022-09-01 14:24] LABS: Appearance Urine Clear (Clear); Bilirubin Urine Negative (Negative); Blood Urine Negative (Negative); Color Urine Yellow (Yellow); Glucose Urine Negative (Negative); Ketones Urine Negative (Negative); Leukocyte Esterase Urine Negative (Negative); Nitrite Urine Negative (Negative); Protein Urine 2+ (Negative); Specific Gravity Urine 1.025 (1.000-1.030); Urobilinogen Urine 0.2 (0.2-1.0); pH Urine 5.5 (5.0-8.5)
[2022-09-01 14:37] LABS: RBC Urine 0-2 (0-2); Squamous Epithelial Cell Urine Few (None-Few); WBC Urine 0-2 (0-5)
[2022-09-01 14:39] LABS: Fine Granular Casts Urine Few
[2022-09-01 15:22] LABS: SARS PCR* Negative SARS-CoV-2 (Negative)
[2022-09-01 15:25] LABS: Slide Review Reflex No
--- NOTE | 2022-09-01 16:16 | ED.NURSE ---
Pt and belongings brought to [facility] via [facility]
--- NOTE | 2022-09-01 16:48 | PM.IMHP1 ---
Hospitalist- H&P: SHERRY History of Present Illness Time Seen by Provider: 17:10 Date Seen: 09/01/22 Chief complaint: Bleeding stomach ulcer Narrative: Ed Jim Luna is a 62 year old male with a history of bleeding gastric ulcers in 2018 who presented through the emergency department today for concerns of melena this morning. In 2018 he had bleeding gastric ulcers that were clipped. He was started on omeprazole after that. In 2018 he broke his left hip and was started on ibuprofen. Since then he has been taking ibuprofen 600 mg twice a day. He was on an antibiotic in June for a presumed urinary tract infection and again in early August for the same. About 1 month ago he started having epigastric cramping and heartburn intermittently throughout the day. He has found nothing that makes this better or worse. He recently switched physicians and was told that they should do a trial of stopping omeprazole. He stopped that about 2 weeks ago and then started famotidine twice a day about 1 week ago. He has not had any bright red blood per rectum or melena nausea or vomiting until today when he had a completely black stool this morning. After that bowel movement he felt lightheaded and short of breath, but both of these resolved. Tells me he has not had anything to eat or drink all day. He was upset when I told him that I recommend he remain only on clear fluids overnight because he tells me that he hates pop and broth. And has a pacemaker that was put in in 2017. He tells me he has never had it checked because it was put in against his will and so he through the machine away and has never followed up on it. I did not know he had had an EKG in the emergency department and I asked him if I could obtained 1 since he would be undergoing a procedure tomorrow that may involve cautery. He told me that he refused to have an EKG done. We discussed how it may be contraindicated to undergo a procedure, sedation, and cautery if his cardiac status is unknown. He said he did not care if he , but that we should not resuscitate him. He finally agreed to an EKG, ?if it makes you happy.? As I was examining his chest and abdomen, I saw that he had EKG stickers on and noted that he must have already had an EKG in the emergency department. He confirmed that he had. He then told me that he better have the procedure done right away in the morning tomorrow because he was not going to wait around all day for this procedure. I told him that he is free to leave whenever he wants, however I strongly recommend that he get an EGD prior to discharge because of how low his hemoglobin was on presentation and the concerned that he may have an upper GI bleed. We discussed that he may be at risk for further bleeding, even fatal amounts of bleeding, if he does not get definitive therapy for a suspected bleeding ulcer. Review of Systems Status of ROS: Reports: 10 or more systems reviewed and unremarkable except as noted in History and below [facility] Medical History (Updated 09/01/22 @ 18:24 by Karol Nick MD) Acute gastrointestinal ulcer with hemorrhage Anemia Atrial flutter BPH (benign prostatic hyperplasia) Diabetes mellitus type 2 with complications Diabetic neuropathy Eczema Essential (primary) hypertension Falling Genital warts Glaucomatous optic atrophy Hyperlipidemia Lipodystrophy Morbid obesity Organic impotence Osteoporosis Pacemaker Tinea pedis Surgical History (Updated 09/01/22 @ 18:16 by Karol Nick MD) H/O cystoscopy H/O esophagogastroduodenoscopy H/O gastric bypass H/O laminectomy History of open reduction and internal fixation (ORIF) procedure History of open reduction and internal fixation (ORIF) procedure History of permanent cardiac pacemaker placement Hx of decompressive lumbar laminectomy Family History (Updated 09/01/22 @ 17:08 by Karol Nick MD) Aunt Diabetes Grandmother Diabetes Mother Diabetes High blood pressure Myocardial infarction Kidney disease Father High blood pressure CHF (congestive heart failure) Grandfather High blood pressure Social History (Updated 09/01/22 @ 18:09 by Karol Nick MD) Narrative: 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 He is to [place] who is with him this evening. He denies tobacco, alcohol, or recreational drug use. He wishes to be DNR/DNI. Highest level of school completed/degree received: high school graduate Smoking Status: Never smoker Do you use any of these nicotine containing products: None Second hand tobacco smoke exposure: No How often do you have a drink containing alcohol: never AUDIT-C Alcohol total score: 0 Non-prescribed substance use: denies use Meds Home Medications and Allergies Home Medications Medication Instructions Recorded Confirmed Type allopurinol 300 mg tablet 300 mg PO DAILY 09/01/22 09/01/22 History famotidine 20 mg tablet 20 mg PO Q12H 09/01/22 09/01/22 History finasteride 5 mg tablet 5 mg PO DAILY 09/01/22 09/01/22 History solifenacin 5 mg tablet 5 mg PO DAILY 09/01/22 09/01/22 History tamsulosin 0.4 mg capsule 0.4 mg PO DAILY 09/01/22 09/01/22 History Home Medication Comments: Additionally he takes a large but unknown amount of vitamin B12 orally. He used to take shots of vitamin B12 due to his history of gastric bypass, but recently notes that he started having a skin reaction to these and so switched to pills instead. He also takes acetaminophen 1500 mg p.o. b.i.d., ibuprofen 600 mg p.o. b.i.d., furosemide 20-40 mg p.o. 2 to 3 times a week (however he has not taken furosemide since middle of June when he broke his left leg), and occasional Soma or cyclobenzaprine. He tells me that he has never taken oral iron because he was told not to by the doctor who did is EGD and ulcer clipping in 2018. Allergies Allergy/AdvReac Type Severity Reaction Status Date / Time ciprofloxacin [From Cipro] Allergy Verified 09/01/22 12:23 flu shot Allergy Diarrhea Uncoded 09/01/22 12:23 Exam Narrative: Exam Narrative: General: No acute distress. Awake alert oriented x3. HEENT: Normocephalic atraumatic, pupils equally round and reactive to light and accommodation. Oropharynx clear. Mucous membranes are moist. No cervical lymphadenopathy, thyromegaly or carotid bruits. No JVD. Cardiovascular: Regular rate and rhythm. No murmurs, gallops, or rubs. Chest: No increased work of breathing. Clear to auscultation bilaterally. No crackles or wheezes. Abdomen: Bowel sounds present. Soft, nondistended, nontender. No hepatosplenomegaly or masses. Extremities: No edema, no cyanosis or clubbing. Chronic venous stasis changes on both lower extremities, thin skin of both lower extremities. Skin: Pallor noted. No jaundice, no rashes. Patient was becoming more agitated, and I did not look at the chronic wound on his left leg. Brace present on left leg. Const: Vital Signs, click to edit/add: Vital Signs - 24 hr 09/01/22 12:14 09/01/22 12:17 09/01/22 12:18 Temperature 98.2 F Pulse Rate 88 89 Pulse Rate [Pulse Oximeter] 88 Pulse Rate [Right Radial] Respiratory Rate 20 Blood Pressure 128/75 Blood Pressure [Le ft Upper Arm] 128/75 Blood Pressure [Ri ght Arm] Pulse Oximetry 99 100 99 Oxygen Delivery Me thod Room Air Room Air 09/01/22 12:30 09/01/22 12:32 09/01/22 12:33 Temperature Pulse Rate 77 83 82 Pulse Rate [Pulse Oximeter] Pulse Rate [Right Radial] Respiratory Rate Blood Pressure 112/67 Blood Pressure [Le ft Upper Arm] Blood Pressure [Ri ght Arm] Pulse Oximetry 98 99 99 Oxygen Delivery Me thod 09/01/22 12:45 09/01/22 13:00 09/01/22 13:02 Temperature Pulse Rate 77 79 81 Pulse Rate [Pulse Oximeter] Pulse Rate [Right Radial] Respiratory Rate Blood Pressure 111/74 Blood Pressure [Le ft Upper Arm] Blood Pressure [Ri ght Arm] Pulse Oximetry 97 95 99 Oxygen Delivery Me thod 09/01/22 13:15 09/01/22 13:30 09/01/22 13:32 Temperature Pulse Rate 77 71 76 Pulse Rate [Pulse Oximeter] Pulse Rate [Right Radial] Respiratory Rate Blood Pressure 130/49 L Blood Pressure [Le ft Upper Arm] Blood Pressure [Ri ght Arm] Pulse Oximetry 96 98 98 Oxygen Delivery Me thod 09/01/22 13:45 09/01/22 14:00 09/01/22 14:03 Temperature Pulse Rate 73 71 68 Pulse Rate [Pulse Oximeter] Pulse Rate [Right Radial] Respiratory Rate Blood Pressure 131/82 Blood Pressure [Le ft Upper Arm] Blood Pressure [Ri ght Arm] Pulse Oximetry 99 99 100 Oxygen Delivery Me thod 09/01/22 14:15 09/01/22 14:33 09/01/22 15:03 Temperature Pulse Rate 70 Pulse Rate [Pulse Oximeter] Pulse Rate [Right Radial] Respiratory Rate Blood Pressure 128/68 138/72 Blood Pressure [Le ft Upper Arm] Blood Pressure [Ri ght Arm] Pulse Oximetry 100 Oxygen Delivery Me thod 09/01/22 15:06 09/01/22 15:15 09/01/22 15:30 Temperature Pulse Rate 68 67 66 Pulse Rate [Pulse Oximeter] Pulse Rate [Right Radial] Respiratory Rate Blood Pressure Blood Pressure [Le ft Upper Arm] Blood Pressure [Ri ght Arm] Pulse Oximetry 98 98 98 Oxygen Delivery Me thod 09/01/22 15:33 09/01/22 15:45 09/01/22 16:00 Temperature Pulse Rate 68 65 66 Pulse Rate [Pulse Oximeter] Pulse Rate [Right Radial] Respiratory Rate Blood Pressure 135/72 Blood Pressure [Le ft Upper Arm] Blood Pressure [Ri ght Arm] Pulse Oximetry 99 99 99 Oxygen Delivery Me thod 09/01/22 16:02 09/01/22 16:30 09/01/22 16:46 Temperature 98.1 F 98.1 F Pulse Rate 64 67 Pulse Rate [Pulse Oximeter] Pulse Rate [Right Radial] 66 Respiratory Rate 20 20 Blood Pressure 136/76 143/91 H Blood Pressure [Le ft Upper Arm] Blood Pressure [Ri ght Arm] 143/91 H Pulse Oximetry 98 99 100 Oxygen Delivery Me thod Room Air Hospitalist - H&P: Result Labs Labs: Short CBC 09/01/22 Range/Units 13:21 WBC 5.10 (4.50-11.00) K/uL Hgb 5.7 L* (13.5-17.5) gm/dL Hct 20.6 L (37.0-53.0) % Plt Count 188 (140-440) K/uL BMP 09/01/22 13:21 Sodium 137 Potassium 5.0 Chloride 107 Carbon Dioxide 25 BUN 51 H Creatinine 1.0 Glucose 169 H Calcium 8.5 Liver Function 09/01/22 Range/Units 13:21 Total Bilirubin 0.3 (0.1-1.5) mg/dL AST 14 (12-35) U/L ALT 15 (4-50) U/L Alkaline Phosphatase 44 (40-150) U/L Albumin 3.7 (3.3-5.0) g/dL Urine 09/01/22 Range/Units 14:00 Urine Color Yellow (Yellow) Urine Appearance Clear (Clear) Urine pH 5.5 (5.0-8.5) Ur Specific Leslie 1.025 (1.000-1.030) Urine Protein 2+ A (Negative) Urine Glucose (UA) Negative (Negative) 09/01/2022 1:38 p.m. EKG: Ventricular paced rhythm with supraventricular complexes and occasional premature ventricular complexes, 77 beats per minute. Ordering Physician: Lesli Valles M.D. Date of Service: 09/01/22 Procedure(s): XR chest 1V portable Accession Number(s): [id number] cc: Lesli Valles M.D.; Meghan Fox D.O.~ For Patients: As a result of the Cures Act, medical imaging exams and procedure reports are released immediately into your electronic medical record. You may view this report before your referring provider. If you have questions, please contact your health care provider. INDICATION: GI bleed with discomfort. TECHNIQUE: Chest 1 view Comparison: None Findings: Cardiomediastinal silhouette is unremarkable. No focal lung consolidation, pleural effusion or pneumothorax. Left chest wall pacemaker with leads in the right atrium and right ventricle. Impression: No acute cardiopulmonary abnormality. Dictated by Sebas Billy MD @ 09/01/2022 2:23:39 PM (Electronically Signed) Assessment and Plan Assessment and plan (1) Acute upper GI bleeding: Status: Suspected (2) Anemia: Problem comment: - acute symptomatic anemia possibly on top of chronic, suspect blood loss anemia due to suspected upper GI bleed - Hgb 7.8 on 06/03/22 per [facility] records - history of bleeding gastric ulcer in 2018 Status: Acute (3) Pacemaker: Problem comment: for heart block. He has never had his pacemaker checked. His and he say that he through the machine away at they had given him to check his pacemaker. Status: Chronic (4) Essential (primary) hypertension: Status: Chronic (5) Diabetes mellitus type 2 with complications: Problem comment: Patient tells me this was diagnosed many years ago and has since gone away. He does not take anything for it or follow a diabetic diet. Status: Chronic (6) Melena: Status: Acute Plan This is a 62-year-old male with history of bleeding gastric ulcers in 2018 who has been taking ibuprofen 600 mg twice a day for the past 3 or 4 years and developed heartburn about a month ago and had melena this morning. Notably he also recently stopped his omeprazole and switch to famotidine. He presents with symptomatic anemia. It is unclear exactly how much of this is new as his hemoglobin at [facility] in May was low at around 8. It does appear that he has a probable acute upper GI bleed. Complicating this is that he also switched to oral vitamin B12 and has a history of gastric bypass. It is possible that vitamin B12 deficiency is also contributing to this, especially since his hemoglobin at [facility] was low in May. Check vitamin B12 level, folate, and iron studies, and give 2 units packed red blood cells. I recommended giving furosemide in between these units as patient does have a history of fluid retention, however he refused the furosemide since his leg is in a brace and he has difficulty getting up to use the bathroom refuses to use a commode or urinal. I will speak with Dr. Parker, our surgeon on-call, regarding this patient and his needs for endoscopy with history of gastric bypass and suspected bleeding gastric ulcer. Check a hemoglobin 1 hour after transfusion. I have explained the need for endoscopy prior to homegoing in the risks of leaving prior to further investigation and treatment of anemia. Despite this conversation, the patient has expressed a desire to leave early tomorrow whether not he has had the endoscopy. He was given a proton pump inhibitor in the emergency department and I will start him on a Protonix drip as well. Due to his history of diabetes I will check a hemoglobin A1c. I have reviewed the EKG that was done in the emergency department and is a ventricular paced rhythm. His point of care troponin in the emergency department was unremarkable.
--- NOTE | 2022-09-01 18:39 | PC.NURSE ---
End of Shift Note: Patient arrived to the unit around 1600 from the ER. He has had a very cranky disposition since his arrival to the floor. Nothing is done to his satisfaction and he will complained about everything. He is currtently in bed and is recieving his first unit of blood. He questions everything that is being done and will argue about everything that is being done. Will continue to monitor and start second unit shortly.
[2022-09-01 19:24] LABS: Iron* 19 ug/dL (49-181)
[2022-09-01 19:33] LABS: Percent Iron Saturation 4 % (20-50); Total Iron Binding Capacity 432 ug/dL (261-462)
[2022-09-01 20:18] LABS: Vitamin B12* > 1000 pg/mL (243-894)
[2022-09-01] MEDS: PANTOPRAZOLE SODIUM 80 MG in 0.9 % SODIUM CHLORIDE 100 ml 100 ML 10 MG IVPB (21:18)
[2022-09-02] VITALS (7 sets, daily range): BP systolic 143–159; BP diastolic 83–111; PULSE 62–68; RESP 18–20; TEMP 36.1–36.9; O2SAT 64–99
[2022-09-02 05:04] LABS: Hemoglobin* 6.8 gm/dL (13.5-17.5)
[2022-09-02 05:18] LABS: Hemoglobin A1C* 5.31 % (0-5.6)
--- NOTE | 2022-09-02 05:49 | PM.IMPN1 ---
Progress Note: A&P Assessment and plan Plan [facility] Hospitalist Cross Cover Note eHospitalist was contacted by nursing staff with concern of patient admitted for upper GI bleed, has serum hemoglobin level came back 6.8 this morning after 2 units PRBC transfusion last night. Hemoglobin was 5.7 prior to transfusion. With target hemoglobin more than 7, we will order another unit PRBC to be transfused this morning. Patient has a scope scheduled later today. Gardenia Escobar MD Thank you for including [facility]. This service is available for further assistance as requested by your care team by calling [phone]. Exam Const: Vital Signs, click to edit/add: Vital Signs - 24 hr 09/01/22 12:14 09/01/22 12:17 09/01/22 12:18 Temperature 98.2 F Pulse Rate 88 89 Pulse Rate [Pulse Oximeter] 88 Pulse Rate [Right Radial] Respiratory Rate 20 Blood Pressure 128/75 Blood Pressure [Le ft Upper Arm] 128/75 Blood Pressure [Ri ght Arm] Pulse Oximetry 99 100 99 Oxygen Delivery Me thod Room Air Room Air 09/01/22 12:30 09/01/22 12:32 09/01/22 12:33 Temperature Pulse Rate 77 83 82 Pulse Rate [Pulse Oximeter] Pulse Rate [Right Radial] Respiratory Rate Blood Pressure 112/67 Blood Pressure [Le ft Upper Arm] Blood Pressure [Ri ght Arm] Pulse Oximetry 98 99 99 Oxygen Delivery Me thod 09/01/22 12:45 09/01/22 13:00 09/01/22 13:02 Temperature Pulse Rate 77 79 81 Pulse Rate [Pulse Oximeter] Pulse Rate [Right Radial] Respiratory Rate Blood Pressure 111/74 Blood Pressure [Le ft Upper Arm] Blood Pressure [Ri ght Arm] Pulse Oximetry 97 95 99 Oxygen Delivery Me thod 09/01/22 13:15 09/01/22 13:30 09/01/22 13:32 Temperature Pulse Rate 77 71 76 Pulse Rate [Pulse Oximeter] Pulse Rate [Right Radial] Respiratory Rate Blood Pressure 130/49 L Blood Pressure [Le ft Upper Arm] Blood Pressure [Ri ght Arm] Pulse Oximetry 96 98 98 Oxygen Delivery Me thod 09/01/22 13:45 09/01/22 14:00 09/01/22 14:03 Temperature Pulse Rate 73 71 68 Pulse Rate [Pulse Oximeter] Pulse Rate [Right Radial] Respiratory Rate Blood Pressure 131/82 Blood Pressure [Le ft Upper Arm] Blood Pressure [Ri ght Arm] Pulse Oximetry 99 99 100 Oxygen Delivery Me thod 09/01/22 14:15 09/01/22 14:33 09/01/22 15:03 Temperature Pulse Rate 70 Pulse Rate [Pulse Oximeter] Pulse Rate [Right Radial] Respiratory Rate Blood Pressure 128/68 138/72 Blood Pressure [Le ft Upper Arm] Blood Pressure [Ri ght Arm] Pulse Oximetry 100 Oxygen Delivery Me thod 09/01/22 15:06 09/01/22 15:15 09/01/22 15:30 Temperature Pulse Rate 68 67 66 Pulse Rate [Pulse Oximeter] Pulse Rate [Right Radial] Respiratory Rate Blood Pressure Blood Pressure [Le ft Upper Arm] Blood Pressure [Ri ght Arm] Pulse Oximetry 98 98 98 Oxygen Delivery Me thod 09/01/22 15:33 09/01/22 15:45 09/01/22 16:00 Temperature Pulse Rate 68 65 66 Pulse Rate [Pulse Oximeter] Pulse Rate [Right Radial] Respiratory Rate Blood Pressure 135/72 Blood Pressure [Le ft Upper Arm] Blood Pressure [Ri ght Arm] Pulse Oximetry 99 99 99 Oxygen Delivery Me thod 09/01/22 16:02 09/01/22 16:30 09/01/22 16:46 Temperature 98.1 F 98.1 F Pulse Rate 64 67 Pulse Rate [Pulse Oximeter] Pulse Rate [Right Radial] 66 Respiratory Rate 20 20 Blood Pressure 136/76 143/91 H Blood Pressure [Le ft Upper Arm] Blood Pressure [Ri ght Arm] 143/91 H Pulse Oximetry 98 99 100 Oxygen Delivery Me thod Room Air 09/01/22 17:03 09/01/22 18:27 09/01/22 17:48 Temperature 98.0 F 97.9 F Pulse Rate 66 64 77 Pulse Rate [Pulse Oximeter] Pulse Rate [Right Radial] Respiratory Rate 20 20 Blood Pressure 144/104 H 149/77 H Blood Pressure [Le ft Upper Arm] Blood Pressure [Ri ght Arm] Pulse Oximetry 100 98 Oxygen Delivery Me thod 09/01/22 18:55 09/01/22 19:10 09/01/22 19:00 Temperature 97.1 F L 97.9 F 98 F Pulse Rate 77 62 Pulse Rate [Pulse Oximeter] Pulse Rate [Right Radial] 64 Respiratory Rate 20 20 16 Blood Pressure 149/77 H 140/78 H Blood Pressure [Le ft Upper Arm] Blood Pressure [Ri ght Arm] 149/95 H Pulse Oximetry 97 99 98 Oxygen Delivery Me thod Room Air 09/01/22 19:11 09/01/22 19:56 09/01/22 23:00 Temperature 98 F 98 F 98.1 F Pulse Rate 64 61 Pulse Rate [Pulse Oximeter] Pulse Rate [Right Radial] 72 Respiratory Rate 16 16 16 Blood Pressure 149/95 H 152/95 H Blood Pressure [Le ft Upper Arm] Blood Pressure [Ri ght Arm] 154/94 H Pulse Oximetry [address] thod Room Air 09/01/22 23:00 09/02/22 03:00 Temperature 98.4 F Pulse Rate 62 Pulse Rate [Pulse Oximeter] Pulse Rate [Right Radial] 68 Respiratory Rate 18 Blood Pressure Blood Pressure [Le ft Upper Arm] Blood Pressure [Ri ght Arm] 151/94 H Pulse Oximetry [address] thod Room Air Labs Labs: Laboratory Results - last 24 hr 09/01/22 09/01/22 09/01/22 13:20 13:21 13:21 WBC 5.10 RBC 2.66 L Hgb 5.7 L* Hct 20.6 L MCV 77 L MCH 21 L MCHC 28 L RDW Coeff of Katlyn 18.4 H Plt Count 188 Neut % (Auto) 76.0 H Lymph % (Auto) 16.5 L Mckinley % (Auto) 6.5 Eos % (Auto) 0.2 Baso % (Auto) 0.6 Neut # (Auto) 3.90 Lymph # (Auto) 0.80 L Mckinley # (Auto) 0.30 Eos # (Auto) 0.01 Baso # (Auto) 0.03 Sodium 137 Potassium 5.0 Chloride 107 Carbon Dioxide 25 BUN 51 H Creatinine 1.0 Estimated Creat Clear 81.91 Estimated GFR 84 Glucose 169 H Hemoglobin A1c Calcium 8.5 Iron TIBC % Saturation Total Bilirubin 0.3 AST 14 ALT 15 Alkaline Phosphatase 44 Total Protein 6.1 Albumin 3.7 Amylase 61 Lipase 47 Vitamin B12 > 1000 H Urine Color Urine Appearance Urine pH Ur Specific [place] Urine Protein Urine Glucose (UA) Urine Ketones Urine Blood Urine Nitrite Urine Bilirubin Urine Urobilinogen Ur Leukocyte Esterase Urine RBC Urine WBC Ur Squamous Epith Cells Urine Bacteria Fine Granular Casts SARS-CoV-2 (PCR) POC Troponin I 0.01 Blood Type Antibody Screen Crossmatch ([facility]) 09/01/22 09/01/22 09/01/22 13:21 13:21 13:21 WBC RBC Hgb Hct MCV MCH MCHC RDW Coeff of Katlyn Plt Count Neut % (Auto) Lymph % (Auto) Mckinley % (Auto) Eos % (Auto) Baso % (Auto) Neut # (Auto) Lymph # (Auto) Mckinley # (Auto) Eos # (Auto) Baso # (Auto) Sodium Potassium Chloride Carbon Dioxide BUN Creatinine Estimated Creat Clear Estimated GFR Glucose Hemoglobin A1c 5.31 Calcium Iron 19 L TIBC 432 % Saturation 4 L Total Bilirubin AST ALT Alkaline Phosphatase Total Protein Albumin Amylase Lipase Vitamin B12 Urine Color Urine Appearance Urine pH Ur Specific [place] Urine Protein Urine Glucose (UA) Urine Ketones Urine Blood Urine Nitrite Urine Bilirubin Urine Urobilinogen Ur Leukocyte Esterase Urine RBC Urine WBC Ur Squamous Epith Cells Urine Bacteria Fine Granular Casts SARS-CoV-2 (PCR) POC Troponin I Blood Type A Positive Antibody Screen NEGATIVE Crossmatch ([facility]) See Detail 09/01/22 09/01/22 09/02/22 13:29 14:00 04:45 WBC RBC Hgb 6.8 L* Hct MCV MCH MCHC RDW Coeff of Katlyn Plt Count Neut % (Auto) Lymph % (Auto) Mckinley % (Auto) Eos % (Auto) Baso % (Auto) Neut # (Auto) Lymph # (Auto) Mckinley # (Auto) Eos # (Auto) Baso # (Auto) Sodium Potassium Chloride Carbon Dioxide BUN Creatinine Estimated Creat Clear Estimated GFR Glucose Hemoglobin A1c Calcium Iron TIBC % Saturation Total Bilirubin AST ALT Alkaline Phosphatase Total Protein Albumin Amylase Lipase Vitamin B12 Urine Color Yellow Urine Appearance Clear Urine pH 5.5 Ur Specific [place] 1.025 Urine Protein 2+ A Urine Glucose (UA) Negative Urine Ketones Negative Urine Blood Negative Urine Nitrite Negative Urine Bilirubin Negative Urine Urobilinogen 0.2 Ur Leukocyte Esterase Negative Urine RBC 0-2 Urine WBC 0-2 Ur Squamous Epith Cells Few Urine Bacteria None Fine Granular Casts Few A SARS-CoV-2 (PCR) Negative SARS-CoV-2 POC Troponin I Blood Type Antibody Screen Crossmatch ([facility])
--- NOTE | 2022-09-02 05:55 | P.IMPN_ITS ---
Subjective Date Seen: 09/02/22 Interval history: Grabiel Arguello Cross Cover Note eHospitalist was contacted by nursing staff with concern of patient admitted for upper GI bleed, has serum hemoglobin level came back 6.8 this morning after 2 units PRBC transfusion last night. Hemoglobin was 5.7 prior to transfusion. With target hemoglobin more than 7, we will order another unit PRBC to be transfused this morning. Patient has a scope scheduled later today. Gardenia Escobar MD Thank you for including Grabiel Arguello in the patients care. This service is available for further assistance as requested by your care team by calling [phone]. Exam Const: Vital Signs, click to edit/add: Vital Signs - 24 hr 09/01/22 12:14 09/01/22 12:17 09/01/22 12:18 Temperature 98.2 F Pulse Rate 88 89 Pulse Rate [Pulse Oximeter] 88 Pulse Rate [Right Radial] Respiratory Rate 20 Blood Pressure 128/75 Blood Pressure [Le ft Upper Arm] 128/75 Blood Pressure [Ri ght Arm] Pulse Oximetry 99 100 99 Oxygen Delivery Me thod Room Air Room Air 09/01/22 12:30 09/01/22 12:32 09/01/22 12:33 Temperature Pulse Rate 77 83 82 Pulse Rate [Pulse Oximeter] Pulse Rate [Right Radial] Respiratory Rate Blood Pressure 112/67 Blood Pressure [Le ft Upper Arm] Blood Pressure [Ri ght Arm] Pulse Oximetry 98 99 99 Oxygen Delivery Me thod 09/01/22 12:45 09/01/22 13:00 09/01/22 13:02 Temperature Pulse Rate 77 79 81 Pulse Rate [Pulse Oximeter] Pulse Rate [Right Radial] Respiratory Rate Blood Pressure 111/74 Blood Pressure [Le ft Upper Arm] Blood Pressure [Ri ght Arm] Pulse Oximetry 97 95 99 Oxygen Delivery Me thod 09/01/22 13:15 09/01/22 13:30 09/01/22 13:32 Temperature Pulse Rate 77 71 76 Pulse Rate [Pulse Oximeter] Pulse Rate [Right Radial] Respiratory Rate Blood Pressure 130/49 L Blood Pressure [Le ft Upper Arm] Blood Pressure [Ri ght Arm] Pulse Oximetry 96 98 98 Oxygen Delivery Me thod 09/01/22 13:45 09/01/22 14:00 09/01/22 14:03 Temperature Pulse Rate 73 71 68 Pulse Rate [Pulse Oximeter] Pulse Rate [Right Radial] Respiratory Rate Blood Pressure 131/82 Blood Pressure [Le ft Upper Arm] Blood Pressure [Ri ght Arm] Pulse Oximetry 99 99 100 Oxygen Delivery Me thod 09/01/22 14:15 09/01/22 14:33 09/01/22 15:03 Temperature Pulse Rate 70 Pulse Rate [Pulse Oximeter] Pulse Rate [Right Radial] Respiratory Rate Blood Pressure 128/68 138/72 Blood Pressure [Le ft Upper Arm] Blood Pressure [Ri ght Arm] Pulse Oximetry 100 Oxygen Delivery Me thod 09/01/22 15:06 09/01/22 15:15 09/01/22 15:30 Temperature Pulse Rate 68 67 66 Pulse Rate [Pulse Oximeter] Pulse Rate [Right Radial] Respiratory Rate Blood Pressure Blood Pressure [Le ft Upper Arm] Blood Pressure [Ri ght Arm] Pulse Oximetry 98 98 98 Oxygen Delivery Me thod 09/01/22 15:33 09/01/22 15:45 09/01/22 16:00 Temperature Pulse Rate 68 65 66 Pulse Rate [Pulse Oximeter] Pulse Rate [Right Radial] Respiratory Rate Blood Pressure 135/72 Blood Pressure [Le ft Upper Arm] Blood Pressure [Ri ght Arm] Pulse Oximetry 99 99 99 Oxygen Delivery Me thod 09/01/22 16:02 09/01/22 16:30 09/01/22 16:46 Temperature 98.1 F 98.1 F Pulse Rate 64 67 Pulse Rate [Pulse Oximeter] Pulse Rate [Right Radial] 66 Respiratory Rate 20 20 Blood Pressure 136/76 143/91 H Blood Pressure [Le ft Upper Arm] Blood Pressure [Ri ght Arm] 143/91 H Pulse Oximetry 98 99 100 Oxygen Delivery Me thod Room Air 09/01/22 17:03 09/01/22 18:27 09/01/22 17:48 Temperature 98.0 F 97.9 F Pulse Rate 66 64 77 Pulse Rate [Pulse Oximeter] Pulse Rate [Right Radial] Respiratory Rate 20 20 Blood Pressure 144/104 H 149/77 H Blood Pressure [Le ft Upper Arm] Blood Pressure [Ri ght Arm] Pulse Oximetry 100 98 Oxygen Delivery Me thod 09/01/22 18:55 09/01/22 19:10 09/01/22 19:00 Temperature 97.1 F L 97.9 F 98 F Pulse Rate 77 62 Pulse Rate [Pulse Oximeter] Pulse Rate [Right Radial] 64 Respiratory Rate 20 20 16 Blood Pressure 149/77 H 140/78 H Blood Pressure [Le ft Upper Arm] Blood Pressure [Ri ght Arm] 149/95 H Pulse Oximetry 97 99 98 Oxygen Delivery Me thod Room Air 09/01/22 19:11 09/01/22 19:56 09/01/22 23:00 Temperature 98 F 98 F 98.1 F Pulse Rate 64 61 Pulse Rate [Pulse Oximeter] Pulse Rate [Right Radial] 72 Respiratory Rate 16 16 16 Blood Pressure 149/95 H 152/95 H Blood Pressure [Le ft Upper Arm] Blood Pressure [Ri ght Arm] 154/94 H Pulse Oximetry 98 98 98 Oxygen Delivery Me thod Room Air 09/01/22 23:00 09/02/22 03:00 Temperature 98.4 F Pulse Rate 62 Pulse Rate [Pulse Oximeter] Pulse Rate [Right Radial] 68 Respiratory Rate 18 Blood Pressure Blood Pressure [Le ft Upper Arm] Blood Pressure [Ri ght Arm] 151/94 H Pulse Oximetry 97 [address]xygen Delivery Ut thod Room Air Labs Labs: Laboratory Results - last 24 hr 09/01/22 09/01/22 09/01/22 13:20 13:21 13:21 WBC 5.10 RBC 2.66 L Hgb 5.7 L* Hct 20.6 L MCV 77 L MCH 21 L MCHC 28 L RDW Coeff of Katlyn 18.4 H Plt Count 188 Neut % (Auto) 76.0 H Lymph % (Auto) 16.5 L [place] % (Auto) 6.5 Eos % (Auto) 0.2 Baso % (Auto) 0.6 Neut # (Auto) 3.90 Lymph # (Auto) 0.80 L [place] # (Auto) 0.30 Eos # (Auto) 0.01 Baso # (Auto) 0.03 Sodium 137 Potassium 5.0 Chloride 107 Carbon Dioxide 25 BUN 51 H Creatinine 1.0 Estimated Creat Clear 81.91 Estimated GFR 84 Glucose 169 H Hemoglobin A1c Calcium 8.5 Iron TIBC % Saturation Total Bilirubin 0.3 AST 14 ALT 15 Alkaline Phosphatase 44 Total Protein 6.1 Albumin 3.7 Amylase 61 Lipase 47 Vitamin B12 > 1000 H Urine Color Urine Appearance Urine pH Ur Specific [place] Urine Protein Urine Glucose (UA) Urine Ketones Urine Blood Urine Nitrite Urine Bilirubin Urine Urobilinogen Ur Leukocyte Esterase Urine RBC Urine WBC Ur Squamous Epith Cells Urine Bacteria Fine Granular Casts SARS-CoV-2 (PCR) POC Troponin I 0.01 Blood Type Antibody Screen Crossmatch ([facility]) 09/01/22 09/01/22 09/01/22 13:21 13:21 13:21 WBC RBC Hgb Hct MCV MCH MCHC RDW Coeff of Katlyn Plt Count Neut % (Auto) Lymph % (Auto) [place] % (Auto) Eos % (Auto) Baso % (Auto) Neut # (Auto) Lymph # (Auto) [place] # (Auto) Eos # (Auto) Baso # (Auto) Sodium Potassium Chloride Carbon Dioxide BUN Creatinine Estimated Creat Clear Estimated GFR Glucose Hemoglobin A1c 5.31 Calcium Iron 19 L TIBC 432 % Saturation 4 L Total Bilirubin AST ALT Alkaline Phosphatase Total Protein Albumin Amylase Lipase Vitamin B12 Urine Color Urine Appearance Urine pH Ur Specific [place] Urine Protein Urine Glucose (UA) Urine Ketones Urine Blood Urine Nitrite Urine Bilirubin Urine Urobilinogen Ur Leukocyte Esterase Urine RBC Urine WBC Ur Squamous Epith Cells Urine Bacteria Fine Granular Casts SARS-CoV-2 (PCR) POC Troponin I Blood Type A Positive Antibody Screen NEGATIVE Crossmatch ([facility]) See Detail 09/01/22 09/01/22 09/02/22 13:29 14:00 04:45 WBC RBC Hgb 6.8 L* Hct MCV MCH MCHC RDW Coeff of Katlyn Plt Count Neut % (Auto) Lymph % (Auto) [place] % (Auto) Eos % (Auto) Baso % (Auto) Neut # (Auto) Lymph # (Auto) [place] # (Auto) Eos # (Auto) Baso # (Auto) Sodium Potassium Chloride Carbon Dioxide BUN Creatinine Estimated Creat Clear Estimated GFR Glucose Hemoglobin A1c Calcium Iron TIBC % Saturation Total Bilirubin AST ALT Alkaline Phosphatase Total Protein Albumin Amylase Lipase Vitamin B12 Urine Color Yellow Urine Appearance Clear Urine pH 5.5 Ur Specific [place] 1.025 Urine Protein 2+ A Urine Glucose (UA) Negative Urine Ketones Negative Urine Blood Negative Urine Nitrite Negative Urine Bilirubin Negative Urine Urobilinogen 0.2 Ur Leukocyte Esterase Negative Urine RBC 0-2 Urine WBC 0-2 Ur Squamous Epith Cells Few Urine Bacteria None Fine Granular Casts Few A SARS-CoV-2 (PCR) Negative SARS-CoV-2 POC Troponin I Blood Type Antibody Screen Crossmatch ([facility])
--- NOTE | 2022-09-02 08:03 | PC.NURSE ---
Patient resistant to cares and uses harsh language directly to commercial loan underwriter, including cursing.? Patient c/o IV medications because ?I?ll have to wake her (referring to his , Magali) all night long to use the bathroom.? Real Estate Lawyer educated patient to use the call light and verbalized that I would be happy to help to which he boldly replied ?I?m not having YOU help me!?.? Real Estate Lawyer then suggested using a urinal ?I don?t like urinals!?? Patient c/o being cold. Real Estate Lawyer checked the thermostat and informed patient it was as warm as it could go. Real Estate Lawyer suggested the patient use the covers on the bed to cover up with (patient was laying on bed with no covers and no shirt on). Patient refused because he doesn?t like his legs covered. Real Estate Lawyer then suggested a warm blanket to cover his top half. Patient snickered and refused stating he would not use it. Patient c/o pain in his abdomen. Real Estate Lawyer asked him to rate it on a 0-10 scale ?I don?t rate my pain! When I say I have pain I HAVE PAIN!). ? ?Patient NPO after midnight (per MD order)?commercial loan underwriter educated patient on POC and requested the water pitcher to be removed from the bedside table.? Patient adamantly refused stating ?I ain?t going to drink from it!?? ?My is drinking from it!?? Real Estate Lawyer?acknowledged that Magali may drink from the cup and suggested it be placed next to the window by her, in case the patient forgot during the night and drank from it, reaffirming the importance of staying NPO for the EGD. ?What the hell I said I ain?t going to drink from it and I won?t!? Patient grabbed the pitcher and secured it in his right arm pit hanging onto it with his left hand (presuming so that it couldn?t be removed). Magali was frustrated by his behavior and angrily verbalized her dissatisfaction regarding his behavior and pried the water pitcher from him and placed it on the table under the TV. She then apologized for her ?s behavior. Patient looked at the commercial loan underwriter forcefully stated ?I don?t want you back in here damn it!? ?Julissa and the patient then continued to have an argument about his behavior and she threatened to leave because of it. Real Estate Lawyer?then excused herself and left the room. Real Estate Lawyer quickly realized the patient was going to pick a fight over everything. ? updated on patient?s pain and ordered a GI cocktail. When commercial loan underwriter attempted to administer the medication, the patient refused stating ?I was told I cannot have anything to eat or drink after midnight? (the time was 0008). ? From this point on the patient refused to acknowledge the commercial loan underwriter's existence in his room. Would not answer any questions, and when asked for a finger to put the pulse ox probe on he?deliberately stuck up his middle finger on his right hand for placement. This happened on 2 separate?occasions. Real Estate Lawyer continued to complete the nursing interventions that the patient would allow for the remainder of the shift. ?
[2022-09-02] MEDS: PANTOPRAZOLE SODIUM 80 MG in 0.9 % SODIUM CHLORIDE 100 ml 100 ML 150 MG IVPB (09:04)
[2022-09-02 10:49] LABS: Hemoglobin* 8.6 gm/dL (13.5-17.5)
--- NOTE | 2022-09-02 11:45 | W.ANESCHARGE ---
Anesthesia Charges Start Date/Time Anesthesia Start Date: 09/02/22 Anesthesia Start Time: 11:20 Stop Date/Time Anesthesia Stop Date: 09/02/22 Anesthesia Stop Time: 11:40 Summary Emergency: Yes
--- NOTE | 2022-09-02 13:36 | PC.NURSE ---
Discharge Note: Patient returned from his procedure and was able to tolerate diet. Orders received for him to be discharged to home. Went through discharge instructions with patient and his . Appears to understand his discharge instructions. Had no further questions. IV removed and patient went by w/c with to the entrance.
--- NOTE | 2022-09-02 16:12 | P.DS_ITS ---
DS: Providers Provider Date Seen: 09/02/22 Date of admission: 09/02/22 10:29 Primary care physician: Meghna Fox DO Admitting Clinician: Karol Nick MD Consults: Gen Surg/EGD Attending Physician on discharge: Valencia MENDEZ Date of Discharge: 09/02/22 DS: Diagnosis Discharge Diagnosis (1) Anemia: Status: Acute Problem details: - acute symptomatic anemia possibly on top of chronic, suspect blood loss anemia due to suspected upper GI bleed - Hgb 7.8 on 06/03/22 per [facility] records - history of bleeding gastric ulcer in 2018 (2) Essential (primary) hypertension: Status: Chronic (3) Pacemaker: Status: Chronic Problem details: for heart block. He has never had his pacemaker checked. His and he say that he through the machine away at they had given him to check his pacemaker. DS: Summary Hospital Course Hospital Course: HOSPITALIST DISCHARGE SUMMARY ATTENDING PHYSICIAN: Estephania Mejia MD FINAL DIAGNOSIS: UGI Bleed - ABLA Iron Deficiency HOSPITAL FOLLOWUP ISSUES: Anemia - discharge hemoglobin 8.6, s/p 3 units PRBCS Iron deficiency - consider oral/IV replacement REFERRALS WHILE ADMITTED: Gen Surgery/EGD REFERRALS AFTER DISCHARGE: PCP BRIEF HOSPITAL COURSE: Admitted with symptomatic melena. Hemoglobin cassidy was 5.7. +Guiac but did not have further bleeding while admitted. 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 These were hemostatic. Trransfused 3 units PRBCS. Given IV PPI. Discharge hemoglobin was 8.6. Pt was difficult to deal with; angry and demanding. SUBSTANTIVE NOTATIONS ON IMAGING, LAB, MICROBIOLOGY/PATHOLOGY STUDIES: Hemoglobin has described above Iron deficient - iron level 19, saturation % 4 DISCHARGE MEDICATIONS: See Reconciled list - SIGNIFICANT CHANGES: None. REVIEW OF SYSTEMS No new chest pain or dyspnea Pain controlled No voiding difficulties Tolerating diet challenge PHYSICAL EXAM: CONSTITUTIONAL: disheveled. VITAL SIGNS: see record. HEENT: Normocephalic, atraumatic. PERRL, EOMI, conjunctivae pink, no scleral icterus. Ears and nose externally normal. Pharynx normal. NECK: No JVD. No carotid bruit, no thyromegaly, no adenopathy. CHEST: Clear to auscultation bilaterally. HEART: S1 and S2 normal. Edema ABDOMEN: Soft, nontender. Normal bowel sounds. MUSCULOSKELETAL: No gross joint deformity or swelling. NEURO: Cranial nerves intact. Grossly intact. No asymmetric findings. SKIN: No rashes, petechiae, concerning changes PSYCHIATRIC: Mood euthymic. DISPOSITION: Home with . Time spent on discharge 37 minutes. Status at Discharge Functional status at discharge: independent ambulation Overall status at discharge: patient is back to baseline Time Spent with Patient Time attestation: Total time spent providing and/or coordinating discharge services: Time spent: Greater than 30 minutes Exam Const: Vital Signs, click to edit/add: Vital Signs - 24 hr 09/01/22 16:30 09/01/22 16:46 09/01/22 17:03 Temperature 98.1 F 98.1 F 98.0 F Pulse Rate 67 66 Pulse Rate [Right Radial] 66 Respiratory Rate 20 20 20 Blood Pressure 143/91 H 144/104 H Blood Pressure [Ri ght Arm] 143/91 H Pulse Oximetry 99 100 100 Oxygen Delivery Me thod Room Air 09/01/22 18:27 09/01/22 17:48 09/01/22 18:55 Temperature 97.9 F 97.1 F L Pulse Rate 64 77 77 Pulse Rate [Right Radial] Respiratory Rate 20 20 Blood Pressure 149/77 H 149/77 H Blood Pressure [Ri ght Arm] Pulse Oximetry 98 97 Oxygen Delivery Me thod 09/01/22 19:10 09/01/22 19:00 09/01/22 19:11 Temperature 97.9 F 98 F 98 F Pulse Rate 62 64 Pulse Rate [Right Radial] 64 Respiratory Rate 20 16 16 Blood Pressure 140/78 H 149/95 H Blood Pressure [Ri ght Arm] 149/95 H Pulse Oximetry 99 98 98 Oxygen Delivery Me thod Room Air 09/01/22 19:56 09/01/22 23:00 09/01/22 23:00 Temperature 98 F 98.1 F Pulse Rate 61 62 Pulse Rate [Right Radial] 72 Respiratory Rate 16 16 Blood Pressure 152/95 H Blood Pressure [Ri ght Arm] 154/94 H Pulse Oximetry 98 98 Oxygen Delivery Me thod Room Air 09/02/22 03:00 09/02/22 06:34 09/01/22 21:30 Temperature 98.4 F 97.4 F L 98.5 F Pulse Rate 64 64 Pulse Rate [Right Radial] 68 Respiratory Rate 18 18 20 Blood Pressure 145/111 H 146/83 H Blood Pressure [Ri ght Arm] 151/94 H Pulse Oximetry 97 97 94 Oxygen Delivery Me thod Room Air 09/02/22 06:50 09/02/22 07:35 09/02/22 07:00 Temperature 98.5 F 97.0 F L 97.0 F L Pulse Rate 64 62 Pulse Rate [Right Radial] 68 Respiratory Rate 20 20 20 Blood Pressure 144/83 H 159/96 H Blood Pressure [Ri ght Arm] 151/94 H Pulse Oximetry 64 L 99 99 Oxygen Delivery Me thod Room Air 09/02/22 07:00 09/02/22 08:35 09/02/22 07:00 Temperature 98.0 F Pulse Rate 67 63 Pulse Rate [Right Radial] 62 Respiratory Rate 20 20 Blood Pressure 143/85 H Blood Pressure [Ri ght Arm] Pulse Oximetry 99 Oxygen Delivery Me thod 09/02/22 12:44 Temperature 98.0 F Pulse Rate 67 Pulse Rate [Right Radial] Respiratory Rate 20 Blood Pressure 143/85 H Blood Pressure [Ri ght Arm] Pulse Oximetry Oxygen Delivery Me thod DS: Data Data Completed and Pending Labs on day of discharge: Labs from last 24 hours 09/02/22 09/02/22 09/02/22 10:40 04:45 04:45 Hgb 8.6 L 6.8 L* Hemoglobin A1c Iron TIBC % Saturation Vitamin B12 RBC Fol Charity for Serum Pending Urine Color Urine Appearance Urine pH Ur Specific [place] Urine Protein Urine Glucose (UA) Urine Ketones Urine Blood Urine Nitrite Urine Bilirubin Urine Urobilinogen Ur Leukocyte Esterase Urine RBC Urine WBC Ur Squamous Epith Cells Urine Bacteria Fine Granular Casts Blood Type Antibody Screen Crossmatch ([facility]) 09/01/22 09/01/22 09/01/22 14:00 13:21 13:21 Hgb Hemoglobin A1c 5.31 Iron 19 L TIBC 432 % Saturation 4 L Vitamin B12 RBC Fol Charity for Serum Urine Color Yellow Urine Appearance Clear Urine pH 5.5 Ur Specific [place] 1.025 Urine Protein 2+ A Urine Glucose (UA) Negative Urine Ketones Negative Urine Blood Negative Urine Nitrite Negative Urine Bilirubin Negative Urine Urobilinogen 0.2 Ur Leukocyte Esterase Negative Urine RBC 0-2 Urine WBC 0-2 Ur Squamous Epith Cells Few Urine Bacteria None Fine Granular Casts Few A Blood Type Antibody Screen Crossmatch ([facility]) 09/01/22 09/01/22 13:21 13:21 Hgb Hemoglobin A1c Iron TIBC % Saturation Vitamin B12 > 1000 H RBC Fol Charity for Serum Urine Color Urine Appearance Urine pH Ur Specific [place] Urine Protein Urine Glucose (UA) Urine Ketones Urine Blood Urine Nitrite Urine Bilirubin Urine Urobilinogen Ur Leukocyte Esterase Urine RBC Urine WBC Ur Squamous Epith Cells Urine Bacteria Fine Granular Casts Blood Type A Positive Antibody Screen NEGATIVE Crossmatch ([facility]) See Detail Discharge Plan Discharge Disposition: Home, Self-Care Date of Admission: 09/02/22 10:29 Attending Provider on Discharge: Estephania Mejia Primary Care Provider: Meghna Fox Condition: Improved Anticipated Discharge Date/Time: 09/02/22 12:24 Discharge Medications: New omeprazole 40 mg capsule,delayed release(DR/EC) 40 mg PO DAILY Qty: 30 2RF Continued allopurinol 300 mg tablet 300 mg PO DAILY Label Comments: TAKE ONE TABLET(300MG) BY MOUTH ONCE DAILY famotidine 20 mg tablet 20 mg PO BID Label Comments: TAKE 1 TABLET (20 MG) BY MOUTH TWO TIMES DAILY. finasteride 5 mg tablet 5 mg PO DAILY Label Comments: TAKE ONE TABLET(5MG) BY MOUTH DAILY solifenacin 5 mg tablet 5 mg PO DAILY Label Comments: TAKE 1 TABLET (5 MG) BY MOUTH ONCE DAILY. tamsulosin 0.4 mg capsule 0.8 mg PO DAILY Label Comments: TAKE TWO CAPSULES BY MOUTH (0.8MG) DAILY acetaminophen 500 mg tablet 1,000 mg PO TID Label Comments: TAKE TWO TABLETS BY MOUTH THREE TIMES DAILY - MAX ACETAMINOPHEN 4000MG/24 HOURS Discharge Orders: Discharge Order (Routine); Ordered 09/02/22 Ordered By: Estephania Mejia Patient Education: Omeprazole (By mouth), Gastrointestinal Bleeding (DC) Additional Instructions: Avoid NSAIDs (Non-Steroidal Anti Inflammatory Drugs): This includes ibuprofen, Motrin, Naprosyn, Aleve, Advil. They increase bleeding risk and can be harsh to the kidneys. Take the omeprazole on an empty stomach each morning Activity Level: No Restrictions and Activity as Tolerated Discharge Diet: Regular Follow Up Appointments: Meghna Fox DO [Primary Care Provider] - 09/19/22 10:35 am Forms: [employer] Info Instructions
[2022-09-04 17:00] LABS: Folate, Serum >22.3 ng/mL (>=5.9)
== END 2022-09-02 13:35 | disposition home or self-care (01) | DRG 241 ==
LOC: ED 14:11 → MEDSURG 16:12
PROVIDERS: Family Medicine; Admitting Provider Family Medicine; Emergency Provider Family Medicine; PCP Family Medicine; Visit Provider Family Medicine
DX: K28.0 Acute gastrojejunal ulcer with hemorrhage (principal); D62 Acute posthemorrhagic anemia; Z95.0 Presence of cardiac pacemaker; I10 Essential (primary) hypertension; K92.1 Melena; S82.92XD Unspecified fracture of left lower leg, subsequent encounter for closed fracture with routine healing; E11.40 Type 2 diabetes mellitus with diabetic neuropathy, unspecified; E66.01 Morbid (severe) obesity due to excess calories; Z98.84 Bariatric surgery status; T39.315A Adverse effect of propionic acid derivatives, initial encounter; N40.0 Benign prostatic hyperplasia without lower urinary tract symptoms; E78.5 Hyperlipidemia, unspecified; Z68.24 Body mass index [BMI] 24.0-24.9, adult
CPT/HCPCS: 00731; 36415; 36430; 43235; 71045; 80053; 81001; 82150; 82607; 82746; 83036; 83540; 83550; 83690; 84484; 85018; 85025; 86850; 86900; 86901; 86922; 87635; 93005; 99140; 99285; G0378; A9270; C9113; J7120; P9016

== ENCOUNTER 2022-09-16 10:18 | Outpatient (CLI) | payer BC, SELFPAY | END 2022-09-16 10:19 | disposition home or self-care (01) | LOC: WOUND 10:18 | PROVIDERS: PCP Family Medicine; Visit Provider Nurse Practitioner Family | DX: L89.894 Pressure ulcer of other site, stage 4 (principal) | CPT/HCPCS: 11042 ==

== ENCOUNTER 2022-09-23 11:12 | Outpatient (CLI) | payer BC, SELFPAY | END 2022-09-23 11:13 | disposition home or self-care (01) | LOC: WOUND 11:12 | PROVIDERS: PCP Family Medicine; Visit Provider Nurse Practitioner Family | DX: E11.622 Type 2 diabetes mellitus with other skin ulcer (principal); L89.894 Pressure ulcer of other site, stage 4 | CPT/HCPCS: 97597 ==

== ENCOUNTER 2022-09-30 10:07 | Outpatient (CLI) | payer BC, SELFPAY | END 2022-09-30 10:08 | disposition home or self-care (01) | LOC: WOUND 10:07 | PROVIDERS: PCP Family Medicine; Visit Provider Nurse Practitioner Family | DX: E11.622 Type 2 diabetes mellitus with other skin ulcer (principal); L89.894 Pressure ulcer of other site, stage 4 | CPT/HCPCS: 99212 ==

== ENCOUNTER 2022-10-20 08:15 | Outpatient (RCR) | payer BC, SELFPAY | END 2023-03-26 23:59 | disposition home or self-care (01) | PROVIDERS: PCP Family Medicine; Visit Provider Orthopaedic Surgery Orthopaedic Trauma | DX: S82.145D Nondisplaced bicondylar fracture of left tibia, subsequent encounter for closed fracture with routine healing (principal); Z51.89 Encounter for other specified aftercare | CPT/HCPCS: 97016; 97110; 97112; 97116; 97140; 97161; 97530 ==

== ENCOUNTER 2023-05-05 08:30 | Outpatient (RCR) | payer BC, SELFPAY | END 2023-09-02 23:59 | disposition home or self-care (01) | PROVIDERS: PCP Family Medicine; Visit Provider Orthopaedic Surgery Hand Surgery | DX: M77.12 Lateral epicondylitis, left elbow (principal); M25.522 Pain in left elbow; M25.622 Stiffness of left elbow, not elsewhere classified; Z51.89 Encounter for other specified aftercare | CPT/HCPCS: 97035; 97140; 97165 ==

== ENCOUNTER 2024-09-21 12:46 | Emergency (ER) | payer OTHER, SELFPAY ==
[2024-09-21 13:10] VITALS: BP 150/69; PULSE 78; RESP 20; TEMP 37.4; O2SAT 97; BMI 27.9
--- NOTE | 2024-09-21 14:09 | ED_ITS ---
HPI - General Adult General Chief complaint: Abdominal Pain Stated complaint: unexplained pain in lower abdomen and back Time Seen by Provider: 09/21/24 14:01 History of Present Illness HPI narrative: comes to ed with concerns of having abd pain. this pain started on Thursday. 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 co feeling dizzy at times. is wearing a left leg brace due to hx of fractures. Pain is in the lower abd pain radiates to left shoulder. has had some nausea. 64-year-old man presenting to the emergency department with complaint of mid/upper abdominal pain. This is now 2nd day. This began while he was driving and has continued and escalated and has felt it radiating up into his left shoulder and across his upper back now. Has had some nausea but apparently not vomiting. At onset was associated also with some diaphoresis. Does have a history of GI bleeds; I believe bleeding gastric ulcer 2017 and GI bleed again suspected around 05/29. He has not had dark stool. Apparently can not have bowel movements unless he takes about 6 senna containing products a day. He has not had anything today admittedly. Does have a history of diabetic neuropathy. He has not had a fever. No dysuria. Does feel like he is managing however his usual bowel pattern. Can occasionally feel lightheaded. No fever. History of Aflutter and with pacemaker placement. Is not anticoagulated. Also notes history of prostate trouble. Questioning later says that every time his urologist scans his bladder it is empty. He does though have some sort of incontinence requiring the use of ?dependables? He also acknowledges urinary tract infections in the past. Related Data Home Medications ?Medication ?Instructions ?Recorded ?Confirmed allopurinol 300 mg tablet 300 mg PO DAILY 09/01/22 09/01/22 famotidine 20 mg tablet 20 mg PO BID 09/01/22 09/02/22 finasteride 5 mg tablet 5 mg PO DAILY 09/01/22 09/01/22 solifenacin 5 mg tablet 5 mg PO DAILY 09/01/22 09/01/22 tamsulosin 0.4 mg capsule 0.8 mg PO DAILY 09/01/22 09/02/22 acetaminophen 500 mg tablet 1,000 mg PO TID 09/02/22 09/02/22 Previous Rx's ?Medication ?Instructions ?Recorded omeprazole 40 mg capsule,delayed 40 mg PO DAILY #30 caps 09/02/22 release Allergies Allergy/AdvReac Type Severity Reaction Status Date / Time ciprofloxacin (From Cipro) Allergy Verified 09/01/22 12:23 influenza virus vaccine AdvReac Verified 09/02/22 07:40 trivalent Review of Systems Status of ROS: Reports: 6 or more systems reviewed and unremarkable except as noted in History and below [facility] Medical History Morbid obesity ?E66.01 - Morbid (severe) obesity due to excess calories (ICD-10) 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 - Male erectile dysfunction, unspecified (ICD-10) Essential (primary) hypertension ?I10 - Essential (primary) hypertension (ICD-10) 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, unspecified eye (ICD-10) Hyperlipidemia ?E78.5 - Hyperlipidemia, unspecified (ICD-10) Eczema ?L30.9 - Dermatitis, unspecified (ICD-10) Tinea pedis ?B35.3 - Tinea pedis (ICD-10) Atrial flutter ?I48.92 - Unspecified atrial flutter (ICD-10) Genital warts ?A63.0 - Anogenital (venereal) warts (ICD-10) Lipodystrophy ?E88.1 - Lipodystrophy, not elsewhere classified (ICD-10) Falling ?R29.6 - Repeated falls (ICD-10) Diabetic neuropathy ?E11.40 - Type 2 diabetes mellitus with diabetic neuropathy, unspecified (ICD-10) Diabetes mellitus type 2 with complications ?E11.8 - Type 2 diabetes mellitus with unspecified complications (ICD-10) Acute gastrointestinal ulcer with hemorrhage ?K28.0 - Acute gastrojejunal ulcer with hemorrhage (ICD-10) Pacemaker ?Z95.0 - Presence of cardiac pacemaker (ICD-10) Anemia ?D64.9 - Anemia, unspecified (ICD-10) BPH (benign prostatic hyperplasia) ?N40.0 - Benign prostatic hyperplasia without lower urinary tract symptoms (ICD-10) Osteoporosis ?M81.0 - Age-related osteoporosis without current pathological fracture (ICD- 10) Surgical History History of open reduction and internal fixation (ORIF) procedure ?Z98.890 - Other specified postprocedural states (ICD-10) History of open reduction and internal fixation (ORIF) procedure ?Z98.890 - Other specified postprocedural states (ICD-10) H/O esophagogastroduodenoscopy ?Z98.890 - Other specified postprocedural states (ICD-10) H/O cystoscopy ?Z98.890 - Other specified postprocedural states (ICD-10) H/O laminectomy ?Z98.890 - Other specified postprocedural states (ICD-10) History of permanent cardiac pacemaker placement ?Z95.0 - Presence of cardiac pacemaker (ICD-10) Hx of decompressive lumbar laminectomy ?Z98.890 - Other specified postprocedural states (ICD-10) H/O gastric bypass ?Z98.84 - Bariatric surgery status (ICD-10) Family History Aunt Diabetes Grandmother Diabetes Mother Diabetes High blood pressure Myocardial infarction Kidney disease Father High blood pressure CHF (congestive heart failure) Grandfather High blood pressure Social History Narrative: 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 He is to [place] who is with him this evening. He denies tobacco, alcohol, or recreational drug use. He wishes to be DNR/DNI. Highest level of school completed/degree received: high school graduate Smoking Status: Never smoker Do you use any of these nicotine containing products: None Second hand tobacco smoke exposure: No How often do you have a drink containing alcohol: never AUDIT-C Alcohol total score: 0 Non-prescribed substance use: denies use Exam Narrative: Exam Narrative: Pleasant. NAD. Here with extensive bracing on his left leg and a cane. Lung are clear. Skin looks somewhat pale. Mucous membranes are pale. Oropharynx is moist. Lungs are clear. Low back midline surgical incision well healed. Area of discomfort in the left shoulder but not reliably reproducible. Generally with shoulder muscle atrophy. Heart in regular rate and rhythm with an occasional ectopic beat. Abdomen is flat, overweight and soft and mild tender generally across the mid abdomen. No masses. No peritoneal signs. Well- perfused peripherally. Const: Vital Signs, click to edit/add: Vital Signs - 24 hr 09/21/24 13:10 09/21/24 16:33 09/21/24 19:10 Temperature 99.3 F 98.6 F Pulse Rate [Pulse Oximeter] 78 64 65 Respiratory Rate 20 18 16 Blood Pressure [Ri ght Upper Arm] 150/69 H 162/89 H 135/90 H Pulse Oximetry 97 98 95 Oxygen Delivery Me thod Room Air Room Air Room Air Documenting provider has reviewed patient's vital signs: yes Course Vital Signs Vital signs: Initial Vital Signs Temperature 99.3 F 09/21/24 13:10 Temperature Source Temporal Artery Scan 09/21/24 13:10 Pulse Rate 78 09/21/24 13:10 Pulse Rhythm Regular 09/21/24 13:10 Respiratory Rate 20 09/21/24 13:10 Blood Pressure 150/69 H 09/21/24 13:10 Blood Pressure Mean 96 09/21/24 13:10 Blood Pressure Position Sitting 09/21/24 13:10 Pulse Oximetry 97 09/21/24 13:10 Oxygen Delivery Method Room Air 09/21/24 13:10 Vital Signs Temperature 99.3 F 09/21/24 13:10 Pulse Rate 78 09/21/24 13:10 Respiratory Rate 20 09/21/24 13:10 Blood Pressure 150/69 H 09/21/24 13:10 Pulse Oximetry 97 09/21/24 13:10 Oxygen Delivery Method Room Air 09/21/24 13:10 Temperature 98.6 F 09/21/24 16:33 Pulse Rate 65 09/21/24 19:10 Respiratory Rate 16 09/21/24 19:10 Blood Pressure 135/90 H 09/21/24 19:10 Pulse Oximetry 95 09/21/24 19:10 Oxygen Delivery Method Room Air 09/21/24 19:10 Medications Administered Medications: Generic Name Dose Route Start Last Admin Trade Name Freq PRN Reason Stop Dose Admin Pantoprazole Sodium 80 mg 09/21/24 19:09 09/21/24 19:21 Pantoprazole Sodium 40 Mg Inj IVP 09/21/24 19:10 80 mg ONCE ONE Administration Medical Decision Making MDM Narrative Medical decision making narrative: Does seem pale which might suggest anemia and in his case potentially a GI bleed. I suppose intra-abdominal bleeding, vascular anomaly, could be causing some of this pain and splenic issue causing discomfort up into his left shoulder in particular. Diverticulitis is in differential. He denies new urinary tract symptoms. Certainly is chronically constipated; this might be all of it. I suppose could have been ischemic cardiac event though reproducibility in the abdomen and duration suggests against this. GI bleed could be occurring again but no dark stools and this pain for him seems atypical. Will check labs broadly and initiate CT imaging given degree of discomfort and persistence. White count is 11.8. Hemoglobin is 8.9 actually a little improved from August 2022. Neutrophilic predominance. CRP elevated at 16.6 Urinalysis returns looking potentially infected with 3+ protein 1+ blood positive for nitrite and 2-5 red cells and 5-10 white cells on microscopic. Negative leukocyte esterase. CRP is notably elevated I do independently review CT imaging. Looks to have some areas of colonic wall thickening though is decompressed. Renal cysts are noted. Well formed stool in the rectal vault. I do not see free fluid or evidence of splenic bleed. Radiology over-read below INDICATION: Bilateral abdominal and left upper abdominal pain. TECHNIQUE: CT abdomen and pelvis with 98 mL Isovue 370 contrast. COMPARISON: None. FINDINGS: Lower chest: Small effusions bilaterally with basilar atelectasis Liver: Filling defects in the anterior and posterior right portal vein most likely reflecting thrombus. There is geographic hypoattenuation in the posterior right hepatic lobe probably related to difference in blood flow given thrombus in the portal vein. Gallbladder and bile ducts: Cholelithiasis. Pancreas: Unremarkable. No mass or inflammation. Spleen: Normal in size. No masses. Adrenal glands: Normal in size. No nodules. Kidneys: Too small to characterize low-attenuation lesions both kidneys left renal cyst GI tract: Gastric bypass. Stomach excluded demonstrates some mild mucosal enhancement and could reflect inflammation Small hiatal hernia. The cecum is located in left upper quadrant and appears minimally distended there is no volvulus seen. This may represent a cecal bascule. Colon is Decompressed in areas and demonstrates wall thickening. Areas of colitis not excluded. The colon is redundant. Appendix not seen. Vasculature: Abdominal aorta is normal in caliber. Lymph nodes: No lymphadenopathy. Peritoneum/Abdominal Wall: Small mount of fluid in the pelvis. Pelvis: Unremarkable. No pelvic masses. Bones: Postsurgical changes of the left hip IMPRESSION: 1. Cecum is located in the left upper quadrant there is no volvulus seen. This could represent a cecal bascule. No obstruction seen. Areas of colonic decompression with wall thickening this could be related to areas of colitis potentially versus nondistention there is no obstruction. 2. Thrombus in the anterior and posterior right portal vein. There is geographic hypoattenuation in the posterior right hepatic lobe which could be related to differences in blood flow given the presence of the portal vein thrombus less likely hepatic steatosis. 3. Mucosal enhancement of the excluded stomach could reflect inflammation. 4. Small effusions and basilar atelectasis. Most notable finding I think in this report is portal vein thrombus. Unclear timing to me though. I would suspect that this could be contributing to the upper abdominal pain as described. Lactate and troponin are pending. Have sent images to [facility] and [facility] to discuss further. Treatment might be challenging in this patient with history of significant GI hemorrhage and already anemic. Would treat for potential UTI. Up handing off at change of shift pending further recommendations from vascular. Medical Records Medical records reviewed: Yes I reviewed the patient's medical records Lab Data Lab results reviewed: Yes I reviewed the patient's lab results Labs: Lab Results 09/21/24 09/21/24 09/21/24 Range/Units 15:00 19:03 Unknown WBC 11.82 H (4.50-11.00) K/uL RBC 3.50 L (4.30-5.90) m/uL Hgb 8.9 L (13.5-17.5) gm/dL Hct 29.5 L (37.0-53.0) % MCV 84 (80-100) fL MCH 25 L (26-34) pg MCHC 30 L (32-36) gm/dL RDW Coeff of Katlyn 17.4 H (11.5-15.5) % Plt Count 168 (140-440) K/uL Neut % (Auto) 84.0 H (42.0-72.0) % Lymph % (Auto) 8.5 L (20-44) % [place] % (Auto) 6.8 (0.0-11.0) % Eos % (Auto) 0.2 (0.0-7.0) % Baso % (Auto) 0.3 (0.0-3.0) % Neut # (Auto) 9.90 H (1.7-7.0) K/uL Lymph # (Auto) 1.00 (0.90-2.90) K/uL [place] # (Auto) 0.80 (0.00-0.90) K/UL Eos # (Auto) 0.00 (0.00-0.50) K/uL Baso # (Auto) 0.00 (0.00-0.30) K/uL Abs Immat Gran (auto) 0.00 (0.00-0.30) K/uL Imm/Tot Granulo (auto) 0.2 % Sodium 133 L (135-149) mmol/L Potassium 3.9 (3.6-5.1) mmol/L Chloride 100 (96-114) mmol/L Carbon Dioxide 30 (20-32) mmol/L Anion Gap 3 L (7-15) mEq/L BUN 31 H (7-30) mg/dL Creatinine 1.0 (0.5-1.5) mg/dL Estimated Creat Clear 77.39 Estimated GFR 83 ml/min Glucose 126 H (60-115) mg/dL Calcium 8.9 (8.4-10.6) mg/dL Total Bilirubin 0.5 (0.1-1.5) mg/dL Direct Bilirubin 0.2 (0.0-0.5) mg/dL AST 27 (12-35) U/L ALT 25 (4-50) U/L Alkaline Phosphatase 55 (40-150) U/L C-Reactive Protein 16.6 H (0.5-1.0) mg/dL Total Protein 6.0 (6.0-8.3) g/dL Albumin 3.5 (3.3-5.0) g/dL Urine Color Yellow (Yellow) Urine Appearance Clear (Clear) Urine pH 6.0 (5.0-8.5) Ur Specific [place] 1.025 (1.000-1.030) Urine Protein 3+ A (Negative) Urine Glucose (UA) Negative (Negative) Urine Ketones Negative (Negative) Urine Blood 1+ A (Negative) Urine Nitrite Positive A (Negative) Urine Bilirubin Negative (Negative) Urine Urobilinogen 1.0 (0.2-1.0) Ur Leukocyte Esterase Negative (Negative) Urine RBC 2-5 A (0-2) Urine WBC 5-10 A (0-5) Ur Squamous Epith Cells Few (None-Few) Urine Bacteria Few A (None) Lab Acknowledgement Test Added ECG Data Attestation: I personally reviewed and interpreted this ECG as follows: (sinus (paced?) bradycardia. interventricular block. rate of 62) Discharge Plan Discharge Clinical Impression: Cystitis, Portal vein thrombosis Prescriptions: No Action allopurinol 300 mg tablet 300 mg PO DAILY Patient Comments: TAKE ONE TABLET(300MG) BY MOUTH ONCE DAILY famotidine 20 mg tablet 20 mg PO BID Patient Comments: TAKE 1 TABLET (20 MG) BY MOUTH TWO TIMES DAILY. finasteride 5 mg tablet 5 mg PO DAILY Patient Comments: TAKE ONE TABLET(5MG) BY MOUTH DAILY solifenacin 5 mg tablet 5 mg PO DAILY Patient Comments: TAKE 1 TABLET (5 MG) BY MOUTH ONCE DAILY. tamsulosin 0.4 mg capsule 0.8 mg PO DAILY Patient Comments: TAKE TWO CAPSULES BY MOUTH (0.8MG) DAILY acetaminophen 500 mg tablet 1,000 mg PO TID Patient Comments: TAKE TWO TABLETS BY MOUTH THREE TIMES DAILY - MAX ACETAMINOPHEN 4000MG/24 HOURS omeprazole 40 mg capsule,delayed release(DR/EC) 40 mg PO DAILY Qty: 30 2RF Follow Up/Referrals: Meghna Fox DO [Primary Care Provider] -
--- NOTE | 2024-09-21 14:24 | CRLHL7_ITS ---
For Patients: As a result of the Century Cures Act, medical imaging exams and procedure reports are released immediately into your electronic medical record. You may view this report before your referring provider. If you have questions, please contact your health care provider. INDICATION: Bilateral abdominal and left upper abdominal pain. TECHNIQUE: CT abdomen and pelvis with 98 mL Isovue 370 contrast. COMPARISON: None. FINDINGS: Lower chest: Small effusions bilaterally with basilar atelectasis Liver: Filling defects in the anterior and posterior right portal vein most likely reflecting thrombus. There is geographic hypoattenuation in the posterior right hepatic lobe probably related to difference in blood flow given thrombus in the portal vein. Gallbladder and bile ducts: Cholelithiasis. Pancreas: Unremarkable. No mass or inflammation. Spleen: Normal in size. No masses. Adrenal glands: Normal in size. No nodules. Kidneys: Too small to characterize low-attenuation lesions both kidneys left renal cyst GI tract: Gastric bypass. Stomach excluded demonstrates some mild mucosal enhancement and could reflect inflammation Small hiatal hernia. The cecum is located in left upper quadrant and appears minimally distended there is no volvulus seen. This may represent a cecal bascule. Colon is Decompressed in areas and demonstrates wall thickening. Areas of colitis not excluded. The colon is redundant. Appendix not seen. Vasculature: Abdominal aorta is normal in caliber. Lymph nodes: No lymphadenopathy. Peritoneum/Abdominal Wall: Small mount of fluid in the pelvis. Pelvis: Unremarkable. No pelvic masses. Bones: Postsurgical changes of the left hip IMPRESSION: 1. Cecum is located in the left upper quadrant there is no volvulus seen. This could represent a cecal bascule. No obstruction seen. Areas of colonic decompression with wall thickening this could be related to areas of colitis potentially versus nondistention there is no obstruction. 2. Thrombus in the anterior and posterior right portal vein. There is geographic hypoattenuation in the posterior right hepatic lobe which could be related to differences in blood flow given the presence of the portal vein thrombus less likely hepatic steatosis. 3. Mucosal enhancement of the excluded stomach could reflect inflammation. 4. Small effusions and basilar atelectasis. Please note that all CT scans at this facility use dose modulation, iterative reconstruction, and/or weight-based dosing when appropriate to reduce radiation dose to as low as reasonably achievable. Dictated by Yola Gomez MD @ 09/21/2024 6:36:20 PM (Electronically Signed)
[2024-09-21 15:13] LABS: Basophils Percent Auto 0.3 % (0.0-3.0); Eosinophils Percent Auto 0.2 % (0.0-7.0); Hematocrit 29.5 % (37.0-53.0); Hemoglobin* 8.9 gm/dL (13.5-17.5); Immature Granulocytes Pct Auto 0.2 %; Lymphocytes Percent Auto 8.5 % (20-44); Mean Corpuscular HGB Conc 30 gm/dL (32-36); Mean Corpuscular Hemoglobin 25 pg (26-34); Mean Corpuscular Volume 84 fL (80-100); Monocytes Percent Auto 6.8 % (0.0-11.0); Platelet Count* 168 K/uL (140-440); RDW Coefficient of Variation % 17.4 % (11.5-15.5); White Blood Count* 11.82 K/uL (4.50-11.00)
--- OUTSIDE RECORDS SUMMARY | 2024-09-21 15:13 | XMS_ITS | Clinical Summary ---
Author Organization [facility] Address [address] [place] [id number] Care Team Providers Care Procurement Analyst Name Role Phone SongAnnitaLadan Primary Care Provider Yulisa Saucedo Unavailable [phone] Allergies Active Allergy Reactions Criticality Noted Date Comments Ciprofloxacin Swelling 04/10/2015 Haemophilus Influenzae GI Disturbance 7 Diarrhea Influenza Virus Vaccine Other (See Comments) Diarrhea Medications ALLOPURINOL PO Take 300 mg by mouth daily Active AMLODIPINE BESYLATE PO Take 10 mg by mouth Active senna-docusate (SENOKOT-S;DIONNA COLACE) 8.6-50 MG per tablet Take 2 tablets by mouth daily Active hydrochlorothia zide (HYDRODIURIL) 25 MG tablet Take 25 mg by mouth daily Active hydrocortisone 2.5 % lotion Apply topically 2 times daily Active IBUPROFEN PO Take 200 mg by mouth as needed for moderate pain Active insulin glargine (LANTUS) 100 UNIT/ML vial Inject 80 Units Subcutaneous daily Active liraglutide (VICTOZA) 18 MG/3ML soln Inject 1.8 mg Subcutaneous daily Active LISINOPRIL PO Take 40 mg by mouth Active METFORMIN HCL PO Take 1,000 mg by mouth 2 times daily (with meals) Active METOPROLOL TARTRATE PO Take 25 mg by mouth 2 times daily Active OMEPRAZOLE PO Take 20 mg by mouth Active SIMVASTATIN PO Take 40 mg by mouth Active TADALAFIL PO Take 20 mg by mouth Active Cyanocobalamin 1000 MCG/ML KIT Inject 1,000 mcg Subcutaneous 8 Active sildenafil (VIAGRA) 50 MG tabletIndicatio ns:Erectile dysfunction, unspecified erectile dysfunction type Take 1-2 tablets by mouth PRN 30-60 minutes prior to sexual activity. Maximum dose: 100 mg (2 tablets) per day. 2 tablet 3 9 Active Active Problems Problem Noted Date Diagnosed Date Morbid obesity 10/28/2014 Diabetes mellitus, type 2 10/28/2014 Acute renal insufficiency 10/28/2014 Pedal edema 10/28/2014 Hypertension 10/28/2014 Left shoulder pain 10/28/2014 Hyperlipidemia 10/28/2014 Adjustment reaction 05/05/2013 Overview (06/08/2015): Problem list name updated by automated process. 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 Gender Identity Not on file Sexual Orientation Not on file Last Filed Vital Signs Vital Sign Reading Time Taken Comments Blood Pressure 142/80 09/21/2018 10:15 AM COLON THERAPIST Pulse 78 09/21/2018 10:15 AM COLON THERAPIST Temperature - - Respiratory Rate - - Oxygen Saturation 96% 10/12/2014 11:45 AM COLON THERAPIST Inhaled Oxygen Concentration - - Weight 80.7 kg (178 lb) 09/21/2018 10:15 AM COLON THERAPIST per patient Height 182.9 cm (6') 09/21/2018 10:15 AM COLON THERAPIST Body Mass Index 24.14 09/21/2018 10:15 AM COLON THERAPIST Plan of Treatment Not on file Care Teams Procurement Analyst Relationship Specialty Start Date End Date Ladan Song PCP - General 09/29/14 Yulisa Bernabe PA [address] [place] [id number] Physician Horse Wrangler Physician Horse Wrangler 03/16/15
--- OUTSIDE RECORDS SUMMARY | 2024-09-21 15:13 | XMS_ITS | Encounter Summary ---
Author Organization [facility] Address [address], [place] [address] Care Team Providers Care Deputy Sheriff Court Services Name Role Phone Cintia Cobb MD Primary Care Provi gertrude Encounter Details Date Type Department Care Team (Late st Contact Info) Description 08/16/2019 Lab Requisition [facility] [address] [place], [place] [id number] Aureliano Munoz MD [address] [facility] [address] [place], [place] [id number] Encounter for screening for respiratory tuberculosis Social History Tobacco Use Types Packs/Day Years Used Date Smoking Tobacco: Never Smokeless Tobacco: Never Sex and Gender Information Value Date Recorded Sex Assigned at Not on file Gender Identity Not on file Sexual Orientation Not on file documented as of this encounter Plan of Treatment Not on file documented as of this encounter Procedures Procedure Name Priority Date/Time Associated Diagnosis Comments TB GOLD, QUANTIFERON Routine 08/17/2019 11:32 AM HUMAN FACTORS ADVISOR LEAD Encounter for screening for respiratory tuberculosis documented in this encounter Results * (ABNORMAL) TB Gold, QuantiFERON Plus (08/17/2019 11:32 AM HUMAN FACTORS ADVISOR LEAD) TB Gold, QuantiFeron Plus Indetermi zoila(A) Negative 08/19/2019 2:32 PM HUMAN FACTORS ADVISOR LEAD [facility] TB Nil Value 0.04 08/19/2019 2:32 PM HUMAN FACTORS ADVISOR LEAD [facility] TB1 Minus Nil Value <0.01 08/19/2019 2:32 PM HUMAN FACTORS ADVISOR LEAD [facility] TB2 Minus Nil Value <0.01 08/19/2019 2:32 PM HUMAN FACTORS ADVISOR LEAD [facility] Mitogen Minus Nil Value 0.39 08/19/2019 2:32 PM [facility] Blood Venipuncture / Unknown 08/17/2019 11:32 AM HUMAN FACTORS ADVISOR LEAD 08/17/2019 2:[address] [facility] - 08/19/2019 2:32 PM HUMAN FACTORS ADVISOR LEAD Nil TB1-Nil TB2-Nil Mitogen-Nil Result Interpretation (IU/ml) (IU/mL) (IU/mL) (IU/mL) <=8.0 >=0.35 & Any Any Positive M. tuberculosis >=25% Nil infection likely <=8.0 Any >=0.35 & Any Positive M. tuberculosis >=25% Nil infection likely <=8.0 <0.35 or <0.35 or >=0.50 Negative M. tuberculosis >=0.35 & >=0.35 & infection NOT <25% Nil <25% Nil likely <=8.0 <0.35 or <0.35 or <0.50 Indeterminate M. tuberculosis >=0.35 & >=0.35 & infection cannot <25% Nil <25% Nil be determined >8.0 Any Any Any Indeterminate M. tuberculosis infection cannot be determined. Important: Diagnosing or excluding tuberculosis disease, and assessing the probability of LTBI, requires a combination of epidemiological, historical, medical, and diagnostic findings that should be taken into account when interpreting QFT- Plus results. See general guidance on the diagnosis and treatment of TB disease and LTBI (https://www.cdc.gov/tb/publications/guidelines/default.htm). The magnitude of the measured IFN-gamma level cannot be correlated to stage or degree of infection, level of immune responsiveness, or likelihood for progression to active disease. A positive TB response in persons who are negative to Mitogen is rare, but has been seen in patients with TB disease. This indicates the IFN-gamma response to TB antigens is greater than that to Mitogen, which is possible as the level of Mitogen does not maximally stimulate IFN-gamma production by lymphocytes. Aureliano Munoz MD LAB_1 [facility] [address] [place], [place] [address] documented in this encounter Visit Diagnoses Diagnosis Encounter for screening for respiratory tuberculosis Screening examination for pulmonary tuberculosis documented in this encounter Care Teams Deputy Sheriff Court Services Relationship Specialty Start [place] [address] [address] PCP - General Family Practice 09/30/21 documented as of this encounter
--- OUTSIDE RECORDS SUMMARY | 2024-09-21 15:13 | XMS_ITS | Clinical Summary ---
Author Organization [facility] Address [address] [place] [address] Care Team Providers Care Director Product Development Name Role Phone Cintia Cobb MD Primary Care Provi gertrude Source Comments You are receiving this document as you are listed as the primary care provider,follow-up provider, or the patient has been referred to you for consultation.This is in compliance with the Medicare and[facility] EHR Incentive Program,which states Providers who transition their patient to another setting of careor provider of care or refers their patient to another provider of care shouldprovide summary care record for each transition of care or referral. Pixalate Allergies Active Allergy Reactions Criticality Noted Date Comments Ciprofloxacin Unknown 11/03/2016 Swelling Haemophilus Influenzae Gastrointestinal 017 Diarrhea Influenza A (H1n1) Monovalen t Vaccine Gastrointestinal 11/27/2021 Diarrhea Influenza Virus Vaccine Other, see comments Diarrhea Medications Medication Sig Dispensed Refills Start Date End Date Status furosemide (LASIX) 40 MG tablet 3 10/28/2016 Active allopurinol (ZYLOPRIM) 300 MG tablet 1 10/28/2016 Active Sennosides (SENOKOT OR) Active omeprazole (PRILOSEC) 20 MG capsule Take 1 Capsule (20 mg) by mouth daily. 11 05/28/2018 Active B-D 3CC LUER-ARIES SYR 25GX5/8 25G X 5/8 3 ML USE DIRECTED FOR CYANOCOBALAMIN INJECTION 12 05/28/2018 Active finasteride (PROSCAR) 5 MG tablet Take 1 Tablet (5 mg) by mouth daily. 11/18/2021 Active tamsulosin (FLOMAX) 0.4 MG CAPS capsule Take 2 Capsules (0.8 mg) by mouth daily. 11/20/2021 Active Calcium Carbonate (AKA OS-JESSE) 1250 (500 Ca) MG chewable tablet Chew and swallow 2 Tablets (2,500 mg) by mouth. Active diazePAM (VALIUM) 2 MG tablet Take 1 Tablet (2 mg) by mouth every 6 hours as needed for Muscle Spasms. 20 Tablet 01/27/2022 Active Additional Information Patient not taking.Reported on 07/22/2023 FEROSUL 325 (65 Fe) MG tablet Take 1 Tablet (325 mg) by mouth daily. 07/18/2022 Active cyclobenzaprine (FLEXERIL) 10 MG tabletIndications: Closed nondisplaced fracture of left tibial plateau with routine healing, subsequent encounter,Closed fracture of distal end of left femur with routine healing, unspecified fracture morphology, subsequent encounter Take 1 Tablet (10 mg) by mouth two times daily as needed. 30 Tablet 03/01/2023 Active Additional Information Patient not taking.Reported on 07/22/2023 alendronate (FOSAMAX) 70 MG tablet Active famotidine (PEPCID) 20 MG tablet Take 1 Tablet (20 mg) by mouth two times a day. 04/14/2023 Active solifenacin (VESICARE) 5 MG tablet Take 1 Tablet (5 mg) by mouth. 04/24/2023 Active hydrocortisone 2.5 % lotion Apply topically. 05/19/2023 Active insulin glargine (LANTUS) 100 UNIT/ML injection Inject 80 Units subcutaneously. Active liraglutide (VICTOZA) 18 MG/3ML SOPN injection Inject 1.8 mg subcutaneously. Active sennosides-docusat e sodium (SENOKOT S) 8.6-50 MG per tablet Take 2 Tablets by mouth daily. Active Active Problems Problem Noted Date Diagnosed Date Closed fracture of left distal femur 09/30/2021 Overview (09/30/2021): Added automatically from request for surgery [id number] Encounters Date Type Department Care Team Description 07/05/2024 Telephone Orthopedics at [facility] Orthopedics at [facility] [place] [address] [facility] [place] [id number] Delmer Valladares, EMMA Prior Authorization For Infusion Medication from Last 3 Months Social History Tobacco Use Types Packs/Day Years Used Date Smoking Tobacco: Never Smokeless Tobacco: Never Alcohol Use Standard Drinks/Week Comments Not Currently 0 (1 standard drink = 0.6 oz pur e alcohol) Sex and Gender Information Value Date Recorded Sex Assigned at Not on file Gender Identity Not on file Sexual Orientation Not on file Last Filed Vital Signs Vital Sign Reading Time Taken Comments Blood Pressure 163/111 07/22/2023 8:24 AM UX ENGINEER Pulse 68 07/22/2023 8:24 AM UX ENGINEER Temperature 36 C (96.8 F) 07/22/2023 7:43 AM UX ENGINEER Respiratory Rate 18 07/22/2023 7:43 AM UX ENGINEER Oxygen Saturation 99% 07/22/2023 8:24 AM UX ENGINEER Inhaled Oxygen Concentration - - Weight 81.6 kg (180 lb) 06/19/2023 9:53 AM CDT Height 182.9 cm (6') 06/19/2023 9:53 AM CDT Body Mass Index 24.41 06/19/2023 9:53 AM CDT Plan of Treatment Health Maintenance Due Date Last Done Comments Colon Cancer Screening Plan Due 1960 Hep C Screening (Preventive Services) 1960 Adult Preventive Visit 1976 Cholesterol 1993 Zoster/Shingles (1 of 2) 2008 DTaP/Tdap/Td (3 - Tdap) 02/18/2022 02/19/20 12, 12/05/2002 PSA Screening Discussion 06/03/2023 06/03/2022 Pneumococcal 65+ Yrs (2 - PCV) 2023 12/05/2002 Dexa 12/21/2023 12/20/2021, 11/09/2019 COVID-19 Vaccine (1 - 2023-2 5 season) 2024 Influenza (#1) 2024 07/13/2008, 08/09/2007, 08/06/2006 RSV (1 - 1-dose 75+ series) 2033 HepA Aged Out No longer eligi ble based on patient's age to complete this topic HepB Aged Out No longer eligi ble based on patient's age to complete this topic Hib Aged Out No longer eligi ble based on patient's age to complete this topic IPV (Polio) Aged Out No longer eligi ble based on patient's age to complete this topic MCV4 Aged Out No longer eligi ble based on patient's age to complete this topic Medical Devices Implanted Type Area Forensic Nurse Device Identifier Shelf Expiration Date Model / Serial / Lot <Historic: [id number] /15/2017 Implanted: 017 (Quantity not on file) <Historic : Cardiac- Rhythm [employer] [employer] / [id number] / Description:Reyn[address]do [address] [id number] Pacemaker Implant ID:[id number] Pacemaker Leads are JobScouttronic. 4.5mm Va Lcp Titaneum Curved Condylar Plates 18 Hole Left Implanted:Qty: 1 on 10/01/2021 by Delgado Gottlieb MD at [facility] DEVICE Left: FEMUR DISTAL DePuy Synthes - Trauma 04.124.4 19 / / 5.0 Mm Va Locking Screws ,Optilink Self Tapping,T25 Stardrive;75mm Implanted:Qty: 1 on 10/01/2021 by Delgado Gottlieb MD at [facility] DEVICE Left: FEMUR DISTAL DePuy Synthes - Trauma 42.231.2 75 / / 5.0 Mm Va Locking Screws ,Optilink Self Tapping,T25 Stardrive; 85mm Implanted:Qty: 2 on 10/01/2021 by Delgado Gottlieb MD at [facility] DEVICE Left: FEMUR DISTAL DePuy Synthes - Trauma 42.231.2 85 / / 5.0 Mm Va Locking Screws ,Optilink Self Tapping,T25 Stardrive;90mm Implanted:Qty: 2 on 10/01/2021 by Delgado Gottlieb MD at [facility] DEVICE Left: FEMUR DISTAL DePuy Synthes - Trauma 42.231.2 90 / / 5mm Locking Screw For Im Nails 40mm Implanted:Qty: 2 on 10/01/2021 by Delgado Gottlieb MD at [facility] DEVICE Left: FEMUR DISTAL DePuy Synthes - Trauma 04.045.0 40 / / Description:RFN ADVANCED RET ROGRADE FEMORAL NAIL SYSTEM 5mm Locking Screw For Im Nails;74 Mm Implanted:Qty: 1 on 10/01/2021 by Delgado Gottlieb MD at [facility] DEVICE Left: FEMUR DISTAL DePuy Synthes - Trauma 04.045.0 74 / / Description:RFN ADVANCED RET ROGRADE FEMORAL NAIL SYSTEM 5mm Locking Screw For Im Nails;80mm Implanted:Qty: 1 on 10/01/2021 by Delgado Gottlieb MD at [facility] DEVICE Left: FEMUR DISTAL DePuy Synthes - Trauma 04.045.0 80 / / Description:RFN ADVANCED RET ROGRADE FEMORAL NAIL SYSTEM 5.0 Mm Periprosthetic Va Locking Screws,Optilink Self Tapping T25 Stardrive;10mm Implanted:Qty: 1 on 10/01/2021 by Delgado Gottlieb MD at [facility] DEVICE Left: FEMUR DISTAL DePuy Synthes - Trauma 42.231.0 10 / NA / NA 5.0 Mm Periprosthetic Va Locking Screws,Optilink Self Tapping T25 Stardrive;12 Mm Implanted:Qty: 1 on 10/01/2021 by Delgado Gottlieb MD at [facility] DEVICE Left: FEMUR DISTAL DePuy Synthes - Trauma 42.231.0 12 / / 5.0 Mm Periprosthetic Va Locking Screws,Optilink Self Tapping T25 Stardrive;16mm Implanted:Qty: 1 on 10/01/2021 by Delgado Gottlieb MD at [facility] DEVICE Left: FEMUR DISTAL DePuy Synthes - Trauma 42.231.0 16 / / 5.0 Mm Periprosthetic Va Locking Screws,Optilink Self Tapping T25 Stardrive;18mm Implanted:Qty: 1 on 10/01/2021 by Delgado Gottlieb MD at [facility] DEVICE Left: FEMUR DISTAL DePuy Synthes - Trauma 42.231.0 18 / / 5.0mm Va Locking Screws,Optilink,S elf Tapping,T25 Stardrive;32mm Implanted:Qty: 1 on 10/01/2021 by Delgado Gottlieb MD at [facility] DEVICE Left: FEMUR DISTAL DePuy Synthes - Trauma 42.231.2 32 / / 90mm Conical Screw Implanted:Qty: 1 on 10/01/2021 by Delgado Gottlieb MD at [facility] DEVICE Left: FEMUR DISTAL DePuy Synthes - Trauma 04.205.2 90 / / Rfna/ 11mm/240mm 5 Degree Bend Implanted:Qty: 1 on 10/01/2021 by Delgado Gottlieb MD at [facility] DEVICE Left: FEMUR DISTAL DePuy Synthes - Trauma 10/07/2025 04.233.1 24S / / [id number] 5.0 Mm Va Locking Screws ,Optilink Self Tapping,T25 Stardrive;42mm Implanted:Qty: 2 on 10/01/2021 by Delgado Gottlieb MD at [facility] DEVICE Left: FEMUR DISTAL DePuy Synthes - Trauma 42.231.2 42 / NA / NA Procedures Procedure Name Priority Date/Time Associated Diagnosis Comments DXA BONE DENSITY SPINE/HIP INC VERT FX ASSESS Routine 12/20/2021 12:19 PM CDT Low bone density from Last 3 Months or Most Recently Relevant to Health Maintenance Results * DXA Bone Density Spine/Hip Inc Vert FX Assess (12/20/2021 12:19 PM CDT) Anatomical Region Laterality Modality Spine, Hip Other Narrative 12/24/2021 8:54 AM CDT CLINIC DXA REPORT Patient Name: Laz Luna Densitometer:Hologic Discovery A (S/N [id number]) TRIA BONE 5 OSTEOPOROSIS RISK FACTORS FROM PATIENT QUESTIONNAIRE: The patient is a 61 y.o.male: Calcium intake is probably not adequate. There is a history of distal femur fracture (age 61); no known family history of spine fracture; and no known family history of hip fracture. History of gastric bypass. BONE MINERAL DENSITY: Lumbar Spine Vertebrae Included: L2;L4 Bone Mineral Density (gm/cm2): 0.833 T-Score: -2.6 Z-Score: -1.9 Total Hip Bone Mineral Density (gm/cm2): 0.603 (RIGHT) T-Score: -2.8 Z-Score: -2.4 Femoral Neck Bone Mineral Density (gm/cm2): 0.556 T-Score: -2.8 Z-Score: -1.7 FRAX 10 year probability major osteoporotic fracture: 17% 10 year probability hip fracture: 5.4% COMPARISON TO PRIOR STUDY: This is a baseline bone density test (first one at [facility]) VERTEBRAL FRACTURE ASSESSMENT: No vertebral fractures from T11 through L4. Upper thoracic vertebrae are not seen well. ASSESSMENT: 1. Osteoporosis, based on T-score(s) at all skeletal sites 2. Patient is at high risk of fracture, based on age, fracture history, bone mineral density at all skeletal sites, and presence or absence of other risk factors. RECOMMENDATIONS: 1. Optimize calcium and vitamin D intake 2. A work-up for secondary causes of bone loss is indicated if not previously done 3. Consider pharmacologic fracture prevention therapy 4. Repeat DXA in 2 years FRAX Explanation: The 10 year risks of hip and major osteoporotic fractures (clinical spine, forearm, hip or shoulder fracture) are calculated by the FRAX algorithm based on femoral neck bone density, age, gender, race/ethnicity, weight, height, previous fracture, parental hip fracture, smoking status, glucocorticoid intake, history of RA, secondary osteoporosis, and high alcohol consumption. FRAX Fracture Risk Categories in terms of major osteoporotic fractures: < 10% = low fracture risk ? 10% and <15% = mildly increased fracture risk ? 15% and <20% = moderately increased fracture risk ? 20% and <30% = high fracture risk ? 30% = very high fracture risk National Osteoporosis Foundation Treatment Guideline A clinician may consider FDA-approved medical therapies in postmenopausal women and men aged 50 years and older, if one or more of the following is present (clinical correlation required and therapy may not always be indicated): 1. The patient has a hip or vertebral fracture. 2. T-score ? -2.5 at the femoral neck, hip, or spine after appropriate evaluation to exclude secondary causes. 3. Low bone mass (T-score between -1.0 and -2.5 at the femoral neck, hip or spine) and a 10-year probability of a hip fracture ? 3% or a 10-year probability of a major osteoporosis-related fracture ? 20% based on the FRAX scores. Delgado Gottlieb MD RAD DEXA from Last 3 Months or Most Recently Relevant to Health Maintenance Advance Directives Documents on File Type Date Recorded Patient General Cargo Clerk Expl anation Advance Directive/Living Will/Durable Power of Attny on file/POLST PN 08/19/2017 11:52 AM * Full Code (Latest Code Status on File) Date Activated Date Inactivated Comments 01/27/2022 2:04 PM 01/27/2022 8:57 PM * Full Code Date Activated Date Inactivated Comments 10/01/2021 8:29 AM 10/03/2021 5:59 PM * Full Code Date Activated Date Inactivated Comments 09/30/2021 9:42 PM 10/01/2021 8:29 AM * Full Code Date Activated Date Inactivated Comments 08/18/2017 4:40 PM 08/18/2017 8:44 PM Care Teams Director Product Development Relationship Specialty Start [place] [address] [phone] PCP - General Family Practice 09/30/21
--- OUTSIDE RECORDS SUMMARY | 2024-09-21 15:13 | XMS_ITS | Data Portability ---
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 Lab None record ed. Referral None record ed. Procedures None record ed. Surgeries None record ed. Imaging None record ed. Medication Orders None record ed. Patient TargetsNo targets recorded. Patient Instructions Encounter Date Encounter Id Patient Instructions Last Modified By Organization Details Last Modified Time 12/19/2020 [id number] Discussion: Dear colleagues: Thank you very much for the referral of above mentioned patient to my office. I do appreciate your trust and referral. Following is my consultation report. Please do not hesitate to call me directly if you have any questions regarding this patient or need assistance to manage the patient. My office can give you my direct cell phone number for further communication. I discussed with the patient the clinical findings and reviewed the findings together. I discussed time I recommend a compressive course of conservative management, physical therapy, lumbar epidural steroid injection, Patient will be provided with the LSO, Patient has been advised to wear the brace/collar for 6-8 weeks when riding a car or doing any excessive activities, or specific activities that provoke the pain. Furthermore possibly in the afternoon and when the pain is worse the brace can be worn for comfort and support. We advised the patient not to wear the brace at all times which lead to muscle atrophy. I will followup with patient with lumbar x-ray flex ex myelogram post myelo CT to evaluate this status of the neural compression. Before making surgical recommendations. COVID-19 screening completed with patient upon arrival to facility. Patient negative for any cough, fever, or SOB. Risks associated with COVID and possible infection during care in our facility or partner facilities are explained to the patient in detail. We specifically explained need for social dispensing. If proceeding with the surgery, need for self-quarantine after Covid test explained. COVID Test is done, based on facility preference, self-quarantine continues from the cast time until the time of surgery. Today my immediate clinical staff and I spent 60 minutes preparing to see the patient, performing a physical exam, going over test results and educating and counseling patients, updating their history, placing orders, and documenting this visit in [place]. All questions are answered. Thank you for this referral. I appreciate your trust in the referring this patient to me and I will stay in contact with you regarding the progress of this patient. Synopsis: 12/19/20, [place], [place], lumbar CT in [place]: L3-S1 DDD HNP and heart disc must of the symptom L2-5 colon, PT, LSO, ERIN, followup with lumbar x-ray flex ex myelogram to discuss L3-S1 OLLIF habbasi Not available 12/19/2020 18:39:37 Reason for Referral None Reported. Results Created Date Observation Date Name Description Value Unit Range Abnormal Flag Note LastModifiedBy Organization Detail LastModifiedTime 12/15/[address], lumba r spine , w/ contr ast No observ ation record ed. [email or web address] Not Available 2020 13:11:29 Result Notes None recorded. Problems No Known Problems Procedures Surgical History Date Name Laterality Status Provider Name and Address Organization Details Recorded Time 9 Hip Surgery completed [facility] 12/19/2020 17:24:36 7 Pacemaker/De fibrillator completed [facility] 12/19/2020 17:24:36 6 Other completed [facility] 12/19/2020 17:24:36 5 Other completed [facility] 12/19/2020 17:24:36 9 Back Surgery completed Desi Mora [place] [facility] 12/19/2020 17:24:36 Imaging Results Imaging Date Name Status LastModified by Organiz ation Details LastModified Time 12/14/2020 CT, lumbar spine, w/ contrast completed [email or web address] Information not available 12/14/2020 13:11:29 Procedure Notes None recorded. Medical Equipment None Reported. Allergies Allergen ID Allergen Name Allergen Category Reaction Reaction Severity Criticality Documentation Date Start Date Code Code System Note Provider Name and Address Organization Details Recorded Time [id number] influenza A (H5N1) virus vaccine monoval (18 yr +) Not available diarrhea severe Not available 12/19/2020 83332 UNK Not Available Not Available Not Available [id number] Cipro medicatio n swelling severe Not available 12/19/202000891 3 RxNorm Not Available Not Available Not Available Medications Name Sig Start Date Stop Date Status Note LastModified by Organization Details LastModified Time furosemide 40 mg tablet active Not Available Not Available No t Available alendronate 70 mg tablet active Not Available Not Available No t Available tamsulosin 0.4 mg capsule active Not Available Not Available N ot Available omeprazole 20 mg capsule,delaye d release active Not Available Not Available No t Available allopurinol 300 mg tablet active Not Available Not Availabl e Not Available Vitals Date Recorded Body height Heart rate Respiratory rate Body temperature Body mass index (BMI) Body weight Oxygen saturation Oxygen saturation in Arterial blood by Pulse oximetry Systolic blood pressure Diastolic blood pressure Provider Name and Address Organization Details Last Updated DateTime 182.88 cm 71 /min 16 /min 71 [degF] 23.1 kg/m2 96830.7 g 98 % 98 % 128 mm[Hg] 78 mm[Hg] Desi [place] [facility] 17:23:49 Social History Question Answer Notes LastModified by Organizat ion Details LastModified Time Tobacco Smoking Status Never Smoker Desi Mora [facility] [place] [facility] 12/19/2020 17:24:32 What Is Your Level Of Alcohol Consumption? None Information not available 12/19/2020 Auto Related Injury? No Information not available 12/19/2020 What Is Your Level Of Caffeine Consumption? Moderate Information not available 12/19/2020 How Much Tobacco Do You Chew? None Information not available 12/19/2020 Are You Currently Employed? Yes Information not available 12/19/2020 What Type Of Diet Are You Following? REGULAR Information not available 12/19/2020 Which Illicit Or Recreational Drugs Have You Used? None Information not available 12/19/2020 Do You Or Have You Ever Used E-cigarettes Or Vape? Never Used Electronic Cigarettes Information not available 12/19/2020 Who Is Your Employer? [employer] Since [employer] Information not available 12/19/2020 What Is Your Occupation? [employer] Employ[employer] Information not available 12/19/2020 HIV Risk Factors No Informat ion not available 12/19/2020 Live Alone Or With Others? With Others Information not available 12/19/2020 What Was The Date Of Your Most Recent Tobacco Screening? 12/19/2020 Information not available 12/19/2020 If Injured, Is Litigation Ongoing? No Information not available 12/19/2020 What Is Your Relationship Status? Information not available 12/19/2020 What Types Of Sporting Activities Do You Participate In? Riding [employer] Information not available 12/19/2020 Work Related Injury? No Information not available 12/19/2020 Sex: Unknown Functional Status Question Answer Note LastModified by Organizat ion Details LastModified Time What is your exercise level? Occasional Information not available 12/19/2020 Mental Status Question Answer Note LastModified by Organization D etails LastModified Time Do you have difficulty concentrating, remembering or making decisions? No Information no t available 12/19/2020 Family History Relationship Description Onset Age of this Age Resolved Age Notes LastModified by Organization Details LastModified Time Father Type 2 diabetes mellitus Not available 2020 17:26:03 Mother Type 2 diabetes mellitus Not available 2020 17:26:03 Medical History Condition Response Diabetes N Pacemaker Y Blood Clot N High Cholesterol N Stroke N Hypertension N Past Encounters Encounter ID Performer Location Encounter Start Date Encounter Closed Date Diagnosis/Indication Diagnosis SNOMED-CT Code Diagnosis ICD10 Code Diagnosis Note [id number] Amelia Renteria MD [facility] [address] [place] [address] 12/19/2020 16:13:33 12/20/2020 10:20:37 Body mass index 20-24 - normal 676148096 Z68.23 Health Concerns Section Related Observation LastModified by Organization Detai ls LastModified Time None Recorded Concern Status LastModified by Organization Details LastModified Time None Recorded Advance Directives Directive None Recorded Payers Encounter Date Sequence Insurance Name Policy Number Policy Baptiste Covered Member ID Baptiste Member ID Guarantor Name 12/19/2020 1 [facility] (MEDICAID REPLACEMENT - HMO) [id number] Ed J Luna [id number] Ed J Jeremy Notes Date Note Type Note Provider Name and Address Organization Details Recorded Time 12/19/2020 text/html Back PainReporte d bypatient.Location: lumbar;pain radiating to the legs Quality:sharp;dull Severity:pain level 10/10 Prior Imaging:CT scan Today nursing spent 30 minutes preparing to see the patient, obtaining and reviewing patients history, obtaining vital signs, entering medications, tests & procedures, educating the patient, coordinating care, and documenting this visit in [place]. Ed J LUNA 60yo 1960 #[id number] Chief Complaint: Severe back pain and bilateral lower extremity radiculopathy History of Present Illness: For the last few years, patient is having pain that is getting much force, pain is reported up to 10 of 10 with activities and the back and lower extremity bilaterally. Patient had previous history of L4/5 decompression in . Patient has done significant amount of conservative therapy and the pain is persisting. Patient is here to be evaluated and for my neurosurgical opinion. Amelia Renteria MD [address] [facility] [address], [place], [address], [place] - [facility] 12/19/2020 18:39:45
--- OUTSIDE RECORDS SUMMARY | 2024-09-21 15:13 | XMS_ITS | Referral Summary ---
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 Gender Identity Not on file Sexual Orientation Not on file Last Filed Vital Signs Vital Sign Reading Time Taken Comments Blood Pressure 142/80 09/21/2018 10:15 AM SOX ANALYST Pulse 78 09/21/2018 10:15 AM SOX ANALYST Temperature - - Respiratory Rate - - Oxygen Saturation 96% 10/12/2014 11:45 AM SOX ANALYST Inhaled Oxygen Concentration - - Weight 80.7 kg (178 lb) 09/21/2018 10:15 AM SOX ANALYST per patient Height 182.9 cm (6') 09/21/2018 10:15 AM SOX ANALYST Body Mass Index 24.14 09/21/2018 10:15 AM SOX ANALYST Plan of Treatment Not on file Care Teams Manager Contracting Relationship Specialty Start Date End Date Ladan Song PCP - General 09/29/14 Yulisa Bernabe PA [address] [place] [id number] Physician Buffer Automatic Physician Buffer Automatic 03/16/15
--- OUTSIDE RECORDS SUMMARY | 2024-09-21 15:13 | XMS_ITS | Clinical Summary ---
Author Organization [facility] Address [place], [place] [address] Care Team Providers Care Rn Observation Name Role Phone Meghna Fox DO Primary Care Provider [phone] Allergies Active Allergy Reactions Criticality Noted Date Comments Ciprofloxacin Other - Describe In Comment Field,Edema,*Unknown - Follow up needed High 12/28/2009 Swelling Genital swelling Haemophilus Influenzae GI Upset,Nausea Only Diarrhea Diarrhea Diarrhea Influenza A (H5n1) Virus Vaccine Monoval (18 Yr +) Diarrhea High 08/13/2021 Medications traZODone (DESYREL) 50 mg tablet TAKE 1-2 TABLETS (50-100 MG TOTAL) BY MOUTH AT BEDTIME NEEDED FOR SLEEP. 07/15/20 21 Active cyclobenzaprine (FLEXERIL) 10 mg tablet TAKE 1 TABLET (10 MG) BY MOUTH TWO TIMES DAILY NEEDED. 05/14/20 22 Active methocarbamoL (ROBAXIN) 500 mg tablet TAKE 1 TABLET (500 MG) BY MOUTH EVERY 6 HOURS NEEDED. INDICATIONS: MUSCULOSKELETAL PAIN 01/25/20 22 Active hydrocortisone (CORTIZONE) 2.5 % lotionIndicatio ns:Dermatitis Apply topically to affected area(s) two times daily. 118 mL 05/19/20 23 Active finasteride (PROSCAR) 5 mg tabletIndicatio ns:Benign prostatic hyperplasia (BPH) with post-void dribbling Take 1 Tablet (5 mg) by mouth once daily in the morning. 90 Tablet 3 06/20/20 24 Active solifenacin succinate (VESICARE) 5 mg tabletIndicatio ns:Urinary urgency Take 1 Tablet (5 mg) by mouth once daily. 90 Tablet 3 06/20/20 24 Active tamsulosin (FLOMAX) 0.4 mg capsuleIndicati ons:Benign prostatic hyperplasia (BPH) with post-void dribbling Take 2 Capsules (0.8 mg) by mouth once daily after a meal. 180 Capsule 3 06/20/20 24 Active famotidine (PEPCID) 20 mg tabletIndicatio ns:Chronic GERD Take 1 Tablet (20 mg) by mouth two times daily. 180 Tablet 3 06/21/20 24 Active omeprazole (PRILOSEC) 40 mg Delayed-Release capsuleIndicati ons:History of GI bleed Take 1 Capsule (40 mg) by mouth once daily before a meal. 90 Capsule 3 06/21/20 24 Active allopurinoL (ZYLOPRIM) 300 mg tabletIndicatio ns:Gout, unspecified cause, unspecified chronicity, unspecified site Take 1 Tablet (300 mg) by mouth once daily. 90 Tablet 3 06/22/20 24 Active Active Problems Problem Noted Date Diagnosed Date Systolic murmur 06/21/2024 Inflammatory spondylopathy, unspecified spinal r egion 05/19/2023 Peripheral polyneuropathy 05/19/2023 PAD (peripheral artery disease) 05/19/2023 Atrial flutter, unspecified type 05/19/2023 Age-related osteoporosis wit hout current pathological fracture 06/05/2022 Elevated blood pressure read ing without diagnosis of hypertension 06/05/2022 Benign prostatic hyperplasia (BPH) with post-voi d dribbling 06/05/2022 Anemia of unknown etiology 06/05/2022 Encounters Date Type Department Care Team Description 09/19/2024 Nurse Triage [facility] [address] [place] [address] Meghna Fox, DO Abdominal Pain 06/21/2024 3:00 PM CDT Office Visit [facility] [address] [place] [address] Meghna Fox, Medication Management (Refill, renew medications ) 06/21/2024 Travel from Last 3 Months Immunizations Name Administration Dates Next Due DT (Age < 7 years) 12/05/2002 Influenza, IIV3 (Age >=3 years) 07/13/2008,08/09,08/06/2006 Pneumococcal Poly,23-Valent (Pneumovax) 12/06/19 03 Tdap 02/19/2012 Family History Medical History Relation Name Comments Hypertension Father Diabetes Maternal Aunt Diabetes Maternal Grandmother Diabetes Mother Hypertension Mother Good Health Paternal Aunt Hypertension Paternal Grandfather Relation Name Status Comments Father Maternal Aunt Alive Maternal Grandmother Mother Paternal Aunt Alive Paternal Grandfather Social History Tobacco Use Types Packs/Day Years Used Date Smoking Tobacco: Never Smokeless Tobacco: Never Tobacco Cessation:Counseling Given: Yes Alcohol Use Standard Drinks/Week Comments Never 0 (1 standard drink = 0.6 oz pur e alcohol) [facility] Utilities Answer Date Recorded Do you have trouble paying f or utilities (for example, heat, electricity, water, phone)? Yes 06/21/2024 Social Connections Answer Date Recorded Do you often feel lonely or isolated from those around you? 0 06/21/2024 Financial Resource Strain Answer Date R ecorded Difficulty of Paying Living Expenses 3 06/21/2024 Difficulty of Paying Living Expenses Not on file 06/21/2024 Food Insecurity Answer Date Recorded Do you worry your food will run out before you are able to buy more? 1 06/21/2024 Transportation Needs Answer Date Record ed Does lack of transportation keep you from medica l appointments? 1 06/21/2024 Does lack of transportation keep you from work, meetings or getting things that you need? 1 06/21/2024 Housing Stability Answer Date Recorded What is your housing situation today? 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 Gender Identity Not on file Sexual Orientation Not on file Obstetrics History Last Filed Vital Signs Vital Sign Reading Time Taken Comments Blood Pressure 147/79 06/21/2024 2:32 PM CDT Pulse 82 06/21/2024 2:32 PM CDT Temperature - - Respiratory Rate - - Oxygen Saturation 100% 06/21/2024 2:32 PM CDT Inhaled Oxygen Concentration - - Weight 79.4 kg (175 lb) 06/21/2024 2:32 PM CDT Height 177.5 cm (5' 9.88) 06/03/2022 7:58 AM CD T Body Mass Index 25.19 06/03/2022 7:58 AM CDT Plan of Treatment Health Maintenance Due Date Last Done Comments Depression screening for age 12+ 1970 BMI (ht and wt on same day) for age 18+ 1976 Hepatitis C screening for age 18-79 1976 Colonoscopy through age 75 2003 Pneumococcal series for age 50+ (2 of 2 - PCV) 12/06/2003 12/05/2002 Zoster (shingles) series for age 50+ (1 of 2) 2008 Tetanus booster 02/18/2022 02/19/2012 COVID-19 vaccine series ( season) 2024 Influenza for age 65+ 05/08/2024 07/13/2008 , 08/09/2007, 08/06/2006 Lipids for age 45-75 06/03/2027 06/03/2022 RSV vaccine for adults or pr egnancy (1 - 1-dose 75+ series) 2033 Tdap Completed 02/19/2012 Procedures Procedure Name Priority Date/Time Associated Diagnosis Comments CREATININE Routine 06/21/2024 4:10 PM CDT Medication management LIPID PANEL Routine 06/03/2022 10:08 AM CDT Screening cholesterol level from Last 3 Months or Most Recently Relevant to Health Maintenance Results * CREATININE (06/21/2024 4:10 PM CDT) CREATININE 1.30 0.70 - 1.35 mg/dL [facility] EGFR 61 > OR = 60 mL/min/1.73 m2 [facility] Blood BLOOD SPECIMEN / Unknown 06/21/2024 4:10 PM CDT 06/21/2024 4:11 PM CDT us Meghna Fox DO CHEMISTRY Final Result [facility] [address] [place] [address], [place] [phone] [facility] [address] [place] [address] * LIPID PANEL (06/03/2022 10:08 AM CDT) CHOLESTEROL,TOTAL 130 100 - 199 mg/dL 06/04/2022 6:08 AM CDT [facility] TRIGLYCERIDES 79 <150 mg/dL 06/04/2022 6:08 AM CDT [facility] HDL CHOLESTEROL 53 >40 mg/dL 6:08 AM CDT [facility] NON-HDL CHOLESTEROL 77 <145 mg/dl 06/04/2022 6:08 AM CDT [facility] CHOL/HDL RATIO 2.45 <4.50 06/04/2022 6:08 AM CDT [facility] LDL CHOLESTEROL 61 <=130 mg/dL 06/04/2022 6:08 AM CDT [facility] VLDL CHOLESTEROL 16 <=30 mg/dL 06/04/2022 6:08 AM CDT [facility] PROVIDER ORDERED STATUS RANDOM 06/04/2022 6:08 AM CDT [facility] Blood BLOOD SPECIMEN / Unknown Butterfly / Unknown 06/03/2022 10:08 AM CDT 06/03/2022 10:11 AM CDT us Meghna Fox DO CHEMISTRY Final Result [facility] [address] [place] [address], [place] from Last 3 Months or Most Recently Relevant to Health Maintenance Care Teams Rn Observation Relationship Specialty Start Date End Date Meghna Fox DO [address] [place] [address] PCP - General Family Practice 02/11/22
[2024-09-21 15:23] LABS: Slide Review Reflex No
[2024-09-21 15:46] LABS: Albumin* 3.5 g/dL (3.3-5.0); Chloride* 100 mmol/L (96-114); Potassium* 3.9 mmol/L (3.6-5.1); Sodium* 133 mmol/L (135-149)
[2024-09-21 15:48] LABS: Est. Creatinine Clearance* 77.39; Estimated Glomerular Filt Rate 83 ml/min
[2024-09-21 15:49] LABS: Appearance Urine Clear (Clear); Bilirubin Urine Negative (Negative); Blood Urine 1+ (Negative); Color Urine Yellow (Yellow); Glucose Urine Negative (Negative); Ketones Urine Negative (Negative); Leukocyte Esterase Urine Negative (Negative); Nitrite Urine Positive (Negative); Protein Urine 3+ (Negative); Specific Gravity Urine 1.025 (1.000-1.030)
[2024-09-21 15:49] LABS: Alanine Aminotransferase* 25 U/L (4-50); Alkaline Phosphatase* 55 U/L (40-150); Anion Gap 3 mEq/L (7-15); Aspartate Amino Transferase* 27 U/L (12-35); Bilirubin Direct* 0.2 mg/dL (0.0-0.5); Bilirubin Total* 0.5 mg/dL (0.1-1.5); Blood Urea Nitrogen* 31 mg/dL (7-30); Carbon Dioxide* 30 mmol/L (20-32); Glucose* 126 mg/dL (60-115)
[2024-09-21 15:50] LABS: Calcium* 8.9 mg/dL (8.4-10.6)
[2024-09-21 16:04] LABS: C Reactive Protein* 16.6 mg/dL (0.5-1.0)
[2024-09-21 16:13] LABS: Bacteria Urine Few; Squamous Epithelial Cell Urine Few (None-Few)
[2024-09-21 16:33] VITALS: BP 162/89; PULSE 64; RESP 18; TEMP 37; O2SAT 98
[2024-09-21 19:10] VITALS: BP 135/90; PULSE 65; RESP 16; O2SAT 95
[2024-09-21] MEDS: PANTOPRAZOLE SODIUM 40 MG INJ 80 MG IVP (19:21)
[2024-09-21 19:26] LABS: Lactate* 1.4 mmol/L (0.5-1.9)
[2024-09-21 19:54] LABS: Troponin I* < 0.01 ng/mL (0.01-0.04)
[2024-09-21] MEDS: cefTRIAXone 1 GM in 0.9 % SODIUM CHLORIDE Mini-bag 100 ML IVPB (20:27)
[2024-09-21 21:40] VITALS: BP 148/84
[2024-09-21] MEDS: HEPARIN 5,000 UNIT/0.5 ML INJ 7300 UNIT IVP (21:43)
[2024-09-21] MEDS: HEPARIN 25,000 UNIT/500 ML BAG 30 UNIT IV (21:45)
[2024-09-21 22:28] VITALS: PULSE 74; RESP 16; O2SAT 96
== END 2024-09-21 23:46 | disposition left against medical advice (07) ==
PROVIDERS: Family Medicine; Emergency Provider Emergency Medicine; PCP Family Medicine
DX: N30.00 Acute cystitis without hematuria (principal); I81 Portal vein thrombosis
CPT/HCPCS: 36415; 74177; 80048; 80076; 81001; 83605; 84484; 85025; 85610; 85730; 86140; 87086; 87186; 93005; 96365; 96375; 99284; 99291; J0696; J1644; J2470; Q9967